=== PATIENT | male | born 1960 | race Caucasian/White ===

== ENCOUNTER 2021-12-26 01:10 | Outpatient (CLI) | payer MEDICARE, MEDICAID, SELFPAY | END 2021-12-26 01:11 | disposition home or self-care (01) | LOC: AMB 01-06 12:00 | PROVIDERS: PCP Family Medicine; Visit Provider Family Medicine | DX: M79.604 Pain in right leg (principal); M79.605 Pain in left leg | CPT/HCPCS: A0425; A0429 ==

== ENCOUNTER 2022-02-01 11:18 | Outpatient (CLI) | payer MEDICARE, MEDICAID, SELFPAY | END 2022-02-01 11:19 | disposition home or self-care (01) | LOC: AMB 02-03 16:38 | PROVIDERS: PCP Family Medicine; Visit Provider Family Medicine | DX: R22.41 Localized swelling, mass and lump, right lower limb (principal) | CPT/HCPCS: A0425; A0429 ==

== ENCOUNTER 2022-02-01 11:46 | Emergency (ER) | payer MEDICARE, MEDICAID, SELFPAY ==
[2022-02-01 11:52] VITALS: BP 131/50; PULSE 63; RESP 18; TEMP 35.7; O2SAT 98; BMI 63.6
[2022-02-01 12:00] VITALS: BP 138/69; PULSE 62; O2SAT 97
--- NOTE | 2022-02-01 12:29 | ED_ITS ---
HPI - General Adult General Chief complaint: Skin/Abscess/Foreign Body Stated complaint: Cellulitis Time Seen by Provider: 02/01/22 11:50 Source: patient Limitations: no limitations History of Present Illness HPI narrative: 61-year-old male coming in today concerned about the rash on his legs. He was told by the nursing staff at his assisted living that it could be infection. He states that he does have chronic leg swelling and he uses compression stockings regularly. He feels that his legs might be little bit more swollen than usual. He denies any systemic symptoms such as fevers, chills, nausea, vomiting, weakness, fatigue. He denies any joint pain. He denies changes in his appetite. Patient is already on chlorthalidone and torsemide. Related Data Allergies Allergy/AdvReac Type Severity Reaction Status Date / Time No Known Drug Allergies Allergy Verified 02/01/22 11:52 Review of Systems Status of ROS: Reports: 10 or more systems reviewed and unremarkable except as noted in History and below [facility] Social History Smoking Status: Never smoker Do you use any of these nicotine containing products: None Second hand tobacco smoke exposure: No How often do you have a drink containing alcohol: never How often do you have six or more drinks on one occasion: Never AUDIT-C Alcohol total score: 0 Non-prescribed substance use: denies use service: No Exam Narrative: Exam Narrative: Morbidly obese patient in no acute distress. Alert and oriented. Answers questions appropriately. Mood and affect are appropriate. No tangential or magical thinking noted. Patient speaks in full sentences without needing to catch his breath. HEENT: Normocephalic atraumatic. Pupils are equally round reactive to light. Extraocular muscles are intact. Conjunctivae are moist without any icterus noted. Moist mucous membranes. Cardiovascular: Heart is regular rate and rhythm S1 and S2 are present. Heart sounds are distant secondary to body habitus. Lungs: Clear to auscultation bilaterally no wheezes rhonchi or rales are appreciated. Patient takes deep breaths without any discomfort. Abdomen: Soft and nontender nondistended with normal bowel sounds. Cannot assess for organomegaly secondary to body habitus. Extremities: Bilateral lower extremities show 1+ pitting edema bilaterally with chronic venous stasis discoloration and thickening of the skin. Extremities are not hot. There is no erythema noted. I do not appreciate any evidence of infection today. Const: Vital Signs, click to edit/add: Vital Signs - 24 hr 02/01/22 11:52 Temperature 96.3 F L Pulse Rate [Apical ] 63 Respiratory Rate 18 Blood Pressure [Le ft Forearm] 131/50 L Pulse Oximetry 98 Oxygen Delivery Me thod Room Air Course Vital Signs Vital signs: Initial Vital Signs Temperature 96.3 F L 02/01/22 11:52 Temperature Source Temporal Artery Scan 02/01/22 11:52 Pulse Rate 63 02/01/22 11:52 Pulse Rhythm 02/01/22 11:52 Respiratory Rate 18 02/01/22 11:52 Blood Pressure 131/50 L 02/01/22 11:52 Blood Pressure Mean 77 02/01/22 11:52 Pulse Oximetry 98 02/01/22 11:52 Oxygen Delivery Method 02/01/22 11:52 Vital Signs Temperature 96.3 F L 02/01/22 11:52 Pulse Rate 63 02/01/22 11:52 Respiratory Rate 18 02/01/22 11:52 Blood Pressure 131/50 L 02/01/22 11:52 Pulse Oximetry 98 02/01/22 11:52 Oxygen Delivery Method 02/01/22 11:52 Temperature 96.3 F L 02/01/22 11:52 Pulse Rate 63 02/01/22 11:52 Respiratory Rate 18 02/01/22 11:52 Blood Pressure 131/50 L 02/01/22 11:52 Pulse Oximetry 98 02/01/22 11:52 Oxygen Delivery Method 02/01/22 11:52 Medical Decision Making [facility] Narrative Medical decision making narrative: 61-year-old male with chronic lower extremity edema presenting with chronic venous stasis discoloration and thickening of the skin. No evidence of infection was noted today. I do recommend he follow-up with his primary care provider to discuss if he needs to have any changes to his medications may. Did recommend he elevate his legs for the remainder of the day if possible an always continue to wear his compression stockings. Patient was agreeable and had no other questions. Medical Records Medical records reviewed: Yes I reviewed the patient's medical records Discharge Plan Discharge Clinical Impression: Chronic venous stasis, Chronic venous stasis dermatitis Patient Disposition: Home, Self-Care Condition: Stable Additional Instructions: Elevate legs as much as possible. Wear compression stockings when you can. Follow-up with your primary care provider to discuss any medication changes. Follow Up/Referrals: Andressa Pendleton, [Primary Care Provider] - Stand Alone Forms: [employer] Info Instructions
[2022-02-01 12:30] VITALS: BP 126/69; PULSE 60; RESP 20; O2SAT 97
[2022-02-01 13:00] VITALS: BP 137/67; PULSE 58; RESP 18; O2SAT 97
--- NOTE | 2022-02-01 13:32 | ED.NURSE ---
awaiting ems transport back to the [facility]. this has been requested.
[2022-02-01 14:50] VITALS: BP 130/63; PULSE 60; RESP 20; O2SAT 98
--- NOTE | 2022-02-01 15:46 | ED.NURSE ---
was able to stand and pivot onto chair. asking for food. awaiting ems to return him back to his home at the [facility].
--- NOTE | 2022-02-01 15:47 | ED.NURSE ---
ate cheeseburger and fries with diet sprite. denies pain. has very good appetite. did void small amt. sitting in w/c.
== END 2022-02-01 14:50 | disposition home or self-care (01) ==
LOC: ED 12:51
PROVIDERS: Emergency Provider Family Medicine; PCP Family Medicine
DX: I87.2 Venous insufficiency (chronic) (peripheral) (principal)
CPT/HCPCS: 99283

== ENCOUNTER 2022-03-07 13:04 | Outpatient (CLI) | payer MEDICARE, MEDICAID, SELFPAY | END 2022-03-07 13:05 | disposition home or self-care (01) | PROVIDERS: Visit Provider Emergency Medicine Emergency Medical Services | DX: R53.81 Other malaise (principal) | CPT/HCPCS: A0425; A0427 ==

== ENCOUNTER 2022-03-07 13:39 | Emergency (ER) | payer MEDICARE, MEDICAID, SELFPAY ==
[2022-03-07] VITALS (14 sets, daily range): BP systolic 101–133; BP diastolic 42–68; PULSE 68–80; RESP 20; TEMP 36.7; O2SAT 95–98; BMI 57.4
--- NOTE | 2022-03-07 14:06 | CRLHL7_ITS ---
For Patients: As a result of the Cures Act, medical imaging exams and procedure reports are released immediately into your electronic medical record. You may view this report before your referring provider. If you have questions, please contact your health care provider. Indication: Shortness of breath Technique: Portable chest Comparison: Chest x-ray 07/25/2020 Findings: Enlarged cardiac silhouette. Low lung volumes. No effusion or pneumothorax. Dictated by Tanvi Dougherty MD @ 03/07/2022 2:53:40 PM (Electronically Signed)
--- NOTE | 2022-03-07 14:25 | ED.GENADULT ---
HPI - General Adult General Chief complaint: Unspecified Complaint, Adult Stated complaint: Illness Time Seen by Provider: 03/07/22 14:00 Source: patient Limitations: no limitations History of Present Illness HPI narrative: Patient is a 61-year-old male coming in today because of not feeling well since waking up this morning. He complains of a headache and body aches. He had chills. He denies cough, nausea or vomiting. He denies any changes in his appetite. He denies any diarrhea. No pain with urination. Denies any increased urinary frequency or urgency. He states that he has an ulceration on his abdomen and 1 on his scrotum that have been there for several weeks, he does not think that they are changing. He does not feel dizzy or lightheaded. States that he had a temperature of 100.3? at home, upon arrival here, without intervention, temperature is normal. Patient's past medical history is significant for diabetes, diabetic neuropathy, developmental disorder, morbid obesity, chronic kidney disease stage 3, sensorineural hearing loss, hyperlipidemia, depression, obstructive sleep apnea, hypertension, gout, history of osteomyelitis. Related Data Home Medications Medication Instructions Recorded Confirmed amlodipine 10 mg tablet 10 mg PO DAILY 03/07/22 03/07/22 apixaban 5 mg tablet (Eliquis) 5 mg PO BID 03/07/22 03/07/22 aripiprazole 15 mg tablet 7.5 mg PO DAILY 03/07/22 03/07/22 aspirin 81 mg tablet,delayed 81 mg PO DAILY 03/07/22 03/07/22 release carbamazepine 200 mg tablet 200 mg PO BID 03/07/22 03/07/22 chlorthalidone 25 mg tablet 25 mg PO DAILY 03/07/22 03/07/22 ezetimibe 10 mg tablet 10 mg PO DAILY 03/07/22 03/07/22 hydralazine 50 mg tablet 50 mg PO QID 03/07/22 03/07/22 insulin aspart U-100 100 unit/mL 42 unit subcut TIDWM 03/07/22 03/07/22 (3 mL) subcutaneous pen (Novolog Flexpen U-100 Insulin aspart) insulin aspart U-100 100 unit/mL 10 unit subcut QPM 03/07/22 03/07/22 subcutaneous solution (Novolog U-100 Insulin aspart) insulin detemir U-100 100 unit/mL 80 unit subcut BID 03/07/22 03/07/22 (3 mL) subcutaneous pen (Levemir FlexTouch U-100 Insulin) isosorbide mononitrate 30 mg 30 mg PO DAILY 03/07/22 03/07/22 tablet,extended release 24 hr lisinopril 40 mg tablet 40 mg PO DAILY 03/07/22 03/07/22 metoprolol succinate 200 mg 200 mg PO DAILY 03/07/22 03/07/22 tablet,extended release 24 hr pantoprazole 40 mg tablet,delayed 40 mg PO DAILY 03/07/22 03/07/22 release polyethylene glycol 3350 17 17 g PO DAILY 03/07/22 03/07/22 gram/dose oral powder pravastatin 80 mg tablet 80 mg PO HS 03/07/22 03/07/22 pregabalin 100 mg capsule 100 mg PO QAM 03/07/22 03/07/22 pregabalin 150 mg capsule 150 mg PO HS 03/07/22 03/07/22 torsemide 20 mg tablet 20 mg PO DAILY 03/07/22 03/07/22 venlafaxine 75 mg capsule,extended 225 mg PO DAILY 03/07/22 03/07/22 release 24 hr Previous Rx's Medication Instructions Recorded cephalexin 500 mg capsule 500 mg PO TID 7 days #21 caps 03/07/22 Allergies Allergy/AdvReac Type Severity Reaction Status Date / Time No Known Drug Allergies Allergy Verified 02/01/22 11:52 Review of Systems Status of ROS: Reports: 10 or more systems reviewed and unremarkable except as noted in History and below PFSH PFS Social History Smoking Status: Never smoker Do you use any of these nicotine containing products: None Second hand tobacco smoke exposure: No How often do you have a drink containing alcohol: never How often do you have six or more drinks on one occasion: Never AUDIT-C Alcohol total score: 0 Non-prescribed substance use: denies use service: No Exam Narrative: Exam Narrative: Morbidly obese patient in no acute distress. Alert and oriented. Answers questions appropriately. Mood and affect are appropriate. Thoughts are goal oriented and rational. No tangential or magical thinking noted. Patient speaks in full sentences without needing to catch his breath. Speech is not slurred or pressured. HEENT: Normocephalic atraumatic. Pupils are equally round reactive to light. Extraocular muscles are intact. Conjunctivae are moist without any icterus noted. Moist mucous membranes. Posterior pharynx is normal. Neck is soft without any lymphadenopathy or thyromegaly. No masses are appreciated. Cardiovascular: Heart sounds are distant secondary to body habitus. Lungs: Clear to auscultation bilaterally no wheezes rhonchi or rales are appreciated. Patient takes deep breaths without any discomfort. Abdomen: Soft and nontender nondistended with normal bowel sounds. No guarding or rebound. Cannot assess for organomegaly secondary to body habitus. Patient has chronic induration of the lower abdominal skin. He does have an area of erythema on the right abdomen, skin is indurated there as well, and is warm to touch. He has a 1 cm ulceration of the anterior abdominal wall which does not appear to be infected. Extremities: He has compression stockings on both lower extremity. The : Posterior scrotum he has about a 1 cm ulceration of the scrotal skin, does not appear to be infected. Const: Vital Signs, click to edit/add: Vital Signs - 24 hr 03/07/22 13:46 03/07/22 14:43 03/07/22 14:45 Temperature 98.1 F Pulse Rate Pulse Rate [Left P ulse Oximeter] 80 71 Respiratory Rate 20 20 Blood Pressure Blood Pressure [Le ft Forearm] 101/53 L Blood Pressure [Ri ght Upper Arm] 106/44 L Pulse Oximetry 95 96 96 Oxygen Delivery Me thod Room Air Room Air 03/07/22 14:57 03/07/22 15:00 03/07/22 15:03 Temperature Pulse Rate 71 71 71 Pulse Rate [Left P ulse Oximeter] Respiratory Rate Blood Pressure 106/42 L Blood Pressure [Le ft Forearm] Blood Pressure [Ri ght Upper Arm] Pulse Oximetry 95 95 96 Oxygen Delivery Me thod 03/07/22 15:30 03/07/22 15:33 03/07/22 16:00 Temperature Pulse Rate 71 69 70 Pulse Rate [Left P ulse Oximeter] Respiratory Rate Blood Pressure 125/68 Blood Pressure [Le ft Forearm] Blood Pressure [Ri ght Upper Arm] Pulse Oximetry 97 98 96 Oxygen Delivery Me thod 03/07/22 16:02 03/07/22 16:30 Temperature Pulse Rate 68 74 Pulse Rate [Left P ulse Oximeter] Respiratory Rate Blood Pressure 133/61 Blood Pressure [Le ft Forearm] Blood Pressure [Ri ght Upper Arm] Pulse Oximetry 97 96 Oxygen Delivery Me thod Course Course Hospital Course: IV was started and patient received a L of normal saline. Labs were drawn and were fairly unremarkable, he did have a slightly elevated CRP and sed rate. Chest x-ray was unremarkable. COVID and influenza were negative. Urinalysis without evidence of infection. Blood cultures were drawn, urine culture pending. He remained afebrile hemodynamically stable while he was here. I do believe that he is likely developing a cellulitis of the anterior abdominal wall, therefore, did give him a dose of IV Rocephin while he was here. Vital Signs Vital signs: Initial Vital Signs Temperature 98.1 F 03/07/22 13:46 Temperature Source Temporal Artery Scan 03/07/22 13:46 Pulse Rate 80 03/07/22 13:46 Pulse Rhythm 03/07/22 13:46 Pulse Strength 3+ Normal 03/07/22 13:46 Respiratory Rate 20 03/07/22 13:46 Blood Pressure 106/44 L 03/07/22 13:46 Blood Pressure Mean 64 03/07/22 13:46 Blood Pressure Position Sitting 03/07/22 13:46 Pulse Oximetry 95 03/07/22 13:46 Oxygen Delivery Method 03/07/22 13:46 Vital Signs Temperature 98.1 F 03/07/22 13:46 Pulse Rate 80 03/07/22 13:46 Respiratory Rate 20 03/07/22 13:46 Blood Pressure 106/44 L 03/07/22 13:46 Pulse Oximetry 95 03/07/22 13:46 Oxygen Delivery Method 03/07/22 13:46 Temperature 98.1 F 03/07/22 13:46 Pulse Rate 74 03/07/22 16:30 Respiratory Rate 20 03/07/22 14:45 Blood Pressure 133/61 03/07/22 16:02 Pulse Oximetry 96 03/07/22 16:30 Oxygen Delivery Method 03/07/22 14:45 Medical Decision Making MDM Narrative Medical decision making narrative: 61-year-old male with cellulitis of the abdominal wall. Patient will be sent home with Keflex 3 times a day for a week. Follow-up with primary care this coming week. Return to the ER for worsening symptoms. Medical Records Medical records reviewed: Yes I reviewed the patient's medical records Lab Data Lab results reviewed: Yes I reviewed the patient's lab results Labs: Lab Results 03/07/22 03/07/22 03/07/22 Range/Units 14:07 14:26 14:26 WBC 5.42 (4.50-11.00) K/uL RBC 3.84 L (4.30-5.90) m/uL Hgb 11.4 L (13.5-17.5) gm/dL Hct 34.0 L (37.0-53.0) % MCV 89 (80-100) fL MCH 30 (26-34) pg MCHC 34 (32-36) gm/dL RDW Coeff of Kaylen 13.7 (11.5-15.5) % Plt Count 152 (140-440) K/uL Neut % (Auto) 71.1 (42.0-72.0) % Lymph % (Auto) 19.2 L (20-44) % Robertson % (Auto) 6.5 (0.0-11.0) % Eos % (Auto) 2.2 (0.0-7.0) % Baso % (Auto) 0.4 (0.0-3.0) % Neut # (Auto) 3.86 (1.7-7.0) K/uL Lymph # (Auto) 1.00 (0.90-2.90) K/uL Robertson # (Auto) 0.40 (0.00-0.90) K/UL Eos # (Auto) 0.12 (0.00-0.50) K/uL Baso # (Auto) 0.02 (0.00-0.30) K/uL Abs Immat Gran (auto) 0.03 (0.00-0.30) K/uL ESR (2-15) mm/hr Sodium 138 (135-149) mmol/L Potassium 4.2 (3.6-5.1) mmol/L Chloride 102 (96-114) mmol/L Carbon Dioxide 29 (20-32) mmol/L BUN 44 H (7-30) mg/dL Creatinine 1.3 (0.5-1.5) mg/dL Estimated Creat Clear 51.25 Estimated GFR 62 ml/min Glucose 166 H (60-115) mg/dL Lactate (0.5-1.9) mmol/L Calcium 9.0 (8.4-10.6) mg/dL Total Bilirubin (0.1-1.5) mg/dL Direct Bilirubin (0.0-0.5) mg/dL AST (12-35) U/L ALT (4-50) U/L Alkaline Phosphatase (40-150) U/L Troponin I (0.01-0.04) ng/mL C-Reactive Protein 3.1 H (0.5-1.0) mg/dL Total Protein (6.0-8.3) g/dL Albumin (3.3-5.0) g/dL Urine Color (Yellow) Urine Appearance (Clear) Urine pH (5.0-8.5) Ur Specific [place] (1.000-1.030) Urine Protein (Negative) Urine Glucose (UA) (Negative) Urine Ketones (Negative) Urine Blood (Negative) Urine Nitrite (Negative) Urine Bilirubin (Negative) Urine Urobilinogen (0.2-1.0) Ur Leukocyte Esterase (Negative) Urine RBC (0-2) Urine WBC (0-5) Ur Squamous Epith Cells (None-Few) Urine Bacteria (None) SARS-CoV-2 (PCR) Negative SARS-CoV-2 (Negative) Influenza Type A (PCR) Negative PCR FLU A (Negative) Influenza Type B (PCR) Negative PCR FLU B (Negative) 03/07/22 03/07/22 03/07/22 Range/Units 14:26 14:26 14:26 WBC (4.50-11.00) K/uL RBC (4.30-5.90) m/uL Hgb (13.5-17.5) gm/dL Hct (37.0-53.0) % MCV (80-100) fL MCH (26-34) pg MCHC (32-36) gm/dL RDW Coeff of Kaylen (11.5-15.5) % Plt Count (140-440) K/uL Neut % (Auto) (42.0-72.0) % Lymph % (Auto) (20-44) % Robertson % (Auto) (0.0-11.0) % Eos % (Auto) (0.0-7.0) % Baso % (Auto) (0.0-3.0) % Neut # (Auto) (1.7-7.0) K/uL Lymph # (Auto) (0.90-2.90) K/uL Robertson # (Auto) (0.00-0.90) K/UL Eos # (Auto) (0.00-0.50) K/uL Baso # (Auto) (0.00-0.30) K/uL Abs Immat Gran (auto) (0.00-0.30) K/uL ESR 53 H (2-15) mm/hr Sodium (135-149) mmol/L Potassium (3.6-5.1) mmol/L Chloride (96-114) mmol/L Carbon Dioxide (20-32) mmol/L BUN (7-30) mg/dL Creatinine (0.5-1.5) mg/dL Estimated Creat Clear Estimated GFR ml/min Glucose (60-115) mg/dL Lactate 1.7 (0.5-1.9) mmol/L Calcium (8.4-10.6) mg/dL Total Bilirubin 0.2 (0.1-1.5) mg/dL Direct Bilirubin 0.0 (0.0-0.5) mg/dL AST 27 (12-35) U/L ALT 29 (4-50) U/L Alkaline Phosphatase 111 (40-150) U/L Troponin I < 0.01 L (0.01-0.04) ng/mL C-Reactive Protein (0.5-1.0) mg/dL Total Protein 6.9 (6.0-8.3) g/dL Albumin 3.9 (3.3-5.0) g/dL Urine Color (Yellow) Urine Appearance (Clear) Urine pH (5.0-8.5) Ur Specific [place] (1.000-1.030) Urine Protein (Negative) Urine Glucose (UA) (Negative) Urine Ketones (Negative) Urine Blood (Negative) Urine Nitrite (Negative) Urine Bilirubin (Negative) Urine Urobilinogen (0.2-1.0) Ur Leukocyte Esterase (Negative) Urine RBC (0-2) Urine WBC (0-5) Ur Squamous Epith Cells (None-Few) Urine Bacteria (None) SARS-CoV-2 (PCR) (Negative) Influenza Type A (PCR) (Negative) Influenza Type B (PCR) (Negative) 03/07/22 Range/Units 16:31 WBC (4.50-11.00) K/uL RBC (4.30-5.90) m/uL Hgb (13.5-17.5) gm/dL Hct (37.0-53.0) % MCV (80-100) fL MCH (26-34) pg MCHC (32-36) gm/dL RDW Coeff of Kaylen (11.5-15.5) % Plt Count (140-440) K/uL Neut % (Auto) (42.0-72.0) % Lymph % (Auto) (20-44) % Robertson % (Auto) (0.0-11.0) % Eos % (Auto) (0.0-7.0) % Baso % (Auto) (0.0-3.0) % Neut # (Auto) (1.7-7.0) K/uL Lymph # (Auto) (0.90-2.90) K/uL Robertson # (Auto) (0.00-0.90) K/UL Eos # (Auto) (0.00-0.50) K/uL Baso # (Auto) (0.00-0.30) K/uL Abs Immat Gran (auto) (0.00-0.30) K/uL ESR (2-15) mm/hr Sodium (135-149) mmol/L Potassium (3.6-5.1) mmol/L Chloride (96-114) mmol/L Carbon Dioxide (20-32) mmol/L BUN (7-30) mg/dL Creatinine (0.5-1.5) mg/dL Estimated Creat Clear Estimated GFR ml/min Glucose (60-115) mg/dL Lactate (0.5-1.9) mmol/L Calcium (8.4-10.6) mg/dL Total Bilirubin (0.1-1.5) mg/dL Direct Bilirubin (0.0-0.5) mg/dL AST (12-35) U/L ALT (4-50) U/L Alkaline Phosphatase (40-150) U/L Troponin I (0.01-0.04) ng/mL C-Reactive Protein (0.5-1.0) mg/dL Total Protein (6.0-8.3) g/dL Albumin (3.3-5.0) g/dL Urine Color Yellow (Yellow) Urine Appearance Clear (Clear) Urine pH 5.5 (5.0-8.5) Ur Specific [place] 1.015 (1.000-1.030) Urine Protein Negative (Negative) Urine Glucose (UA) Negative (Negative) Urine Ketones Negative (Negative) Urine Blood Negative (Negative) Urine Nitrite Negative (Negative) Urine Bilirubin Negative (Negative) Urine Urobilinogen 0.2 (0.2-1.0) Ur Leukocyte Esterase Negative (Negative) Urine RBC 0-2 (0-2) Urine WBC 0-2 (0-5) Ur Squamous Epith Cells Few (None-Few) Urine Bacteria None (None) SARS-CoV-2 (PCR) (Negative) Influenza Type A (PCR) (Negative) Influenza Type B (PCR) (Negative) Imaging Data Chest x-ray: Attestation: I have reviewed the pertinent imaging results. Radiologist's impression: Portable chest Comparison: Chest x-ray 07/25/2020 Findings: Enlarged cardiac silhouette. Low lung volumes. No effusion or pneumothorax. ECG Data Attestation: I personally reviewed and interpreted this ECG as follows: (Normal sinus rhythm, pulse 71) Discharge Plan Discharge Clinical Impression: Cellulitis Patient Disposition: Home, Self-Care Condition: Stable Additional Instructions: Start antibiotics as prescribed, can take 1st dose tomorrow. Recommend you follow-up with your primary care provider in the next 3-4 days. Return to the ER if your symptoms get worse instead of better. Prescriptions: New cephalexin 500 mg capsule 500 mg PO TID 7 Days Qty: 21 0RF No Action amlodipine 10 mg tablet 10 mg PO DAILY aripiprazole 15 mg tablet 7.5 mg PO DAILY Eliquis 5 mg tablet 5 mg PO BID aspirin 81 mg tablet,delayed release (DR/EC) 81 mg PO DAILY venlafaxine 75 mg capsule,extended release 24hr 225 mg PO DAILY torsemide 20 mg tablet 20 mg PO DAILY metoprolol succinate 200 mg tablet extended release 24 hr 200 mg PO DAILY isosorbide mononitrate 30 mg tablet extended release 24 hr 30 mg PO DAILY chlorthalidone 25 mg tablet 25 mg PO DAILY carbamazepine 200 mg tablet 200 mg PO BID pravastatin 80 mg tablet 80 mg PO HS pantoprazole 40 mg tablet,delayed release (DR/EC) 40 mg PO DAILY hydralazine 50 mg tablet 50 mg PO QID Label Comments: 08,12,16,20 lisinopril 40 mg tablet 40 mg PO DAILY ezetimibe 10 mg tablet 10 mg PO DAILY pregabalin 100 mg capsule 100 mg PO QAM pregabalin 150 mg capsule 150 mg PO HS Levemir FlexTouch U-100 Insuln 100 unit/mL (3 mL) insulin pen 80 unit SUBCUT BID insulin aspart U-100 [Novolog Flexpen U-100 Insulin] 100 unit/mL (3 mL) insulin pen 42 unit SUBCUT TIDWM polyethylene glycol 3350 17 gram/dose powder 17 g PO DAILY insulin aspart U-100 [Novolog U-100 Insulin aspart] 100 unit/mL solution 10 unit subcut QPM Follow Up/Referrals: Andressa Pendleton DO [Staff Physician] - Stand Alone Forms: [facility] Info Instructions
[2022-03-07] MEDS: 0.9 % SODIUM CHLORIDE 1000 ml 1,000 ML IV (14:37)
[2022-03-07 14:38] LABS: Lactate* 1.7 mmol/L (0.5-1.9)
[2022-03-07 14:49] LABS: Basophils Absolute Auto 0.02 K/uL (0.00-0.30); Basophils Percent Auto 0.4 % (0.0-3.0); Eosinophils Absolute Auto 0.12 K/uL (0.00-0.50); Eosinophils Percent Auto 2.2 % (0.0-7.0); Hemoglobin* 11.4 gm/dL (13.5-17.5); Immature Granulocytes Abs Auto 0.03 K/uL (0.00-0.30); Lymphocytes Percent Auto 19.2 % (20-44); Mean Corpuscular HGB Conc 34 gm/dL (32-36); Mean Corpuscular Hemoglobin 30 pg (26-34); Mean Corpuscular Volume 89 fL (80-100); Monocytes Percent Auto 6.5 % (0.0-11.0); Neutrophils Absolute Auto 3.86 K/uL (1.7-7.0); Neutrophils Percent Auto 71.1 % (42.0-72.0); Platelet Count* 152 K/uL (140-440); RDW Coefficient of Variation % 13.7 % (11.5-15.5); Red Blood Count 3.84 m/uL (4.30-5.90); White Blood Count* 5.42 K/uL (4.50-11.00)
[2022-03-07 14:51] LABS: Slide Review Reflex No
[2022-03-07 14:54] LABS: Chloride* 102 mmol/L (96-114); Potassium* 4.2 mmol/L (3.6-5.1); Sodium* 138 mmol/L (135-149)
[2022-03-07 14:55] LABS: Albumin* 3.9 g/dL (3.3-5.0)
[2022-03-07 14:57] LABS: Blood Urea Nitrogen* 44 mg/dL (7-30); Carbon Dioxide* 29 mmol/L (20-32); Creatinine* 1.3 mg/dL (0.5-1.5); Est. Creatinine Clearance* 51.25; Estimated Glomerular Filt Rate 62 ml/min
[2022-03-07 14:58] LABS: Alanine Aminotransferase* 29 U/L (4-50); Alkaline Phosphatase* 111 U/L (40-150); Aspartate Amino Transferase* 27 U/L (12-35); Bilirubin Total* 0.2 mg/dL (0.1-1.5); Glucose* 166 mg/dL (60-115); Total Protein* 6.9 g/dL (6.0-8.3)
[2022-03-07 15:00] LABS: C Reactive Protein* 3.1 mg/dL (0.5-1.0)
[2022-03-07 15:11] LABS: Troponin I* < 0.01 ng/mL (0.01-0.04)
[2022-03-07 15:21] LABS: PCR FLU A Negative PCR FLU A (Negative); PCR FLU B Negative PCR FLU B (Negative); SARS PCR* Negative SARS-CoV-2 (Negative)
[2022-03-07 15:27] LABS: Erythrocyte SedimentationRate* 53 mm/hr (2-15)
[2022-03-07] MEDS: cefTRIAXone 1 GM in 0.9 % SODIUM CHLORIDE Mini-bag 100 ML IVPB (16:28)
[2022-03-07 16:37] LABS: Appearance Urine Clear (Clear); Bilirubin Urine Negative (Negative); Blood Urine Negative (Negative); Color Urine Yellow (Yellow); Glucose Urine Negative (Negative); Ketones Urine Negative (Negative); Leukocyte Esterase Urine Negative (Negative); Nitrite Urine Negative (Negative); Protein Urine Negative (Negative); Specific Gravity Urine 1.015 (1.000-1.030); Urobilinogen Urine 0.2 (0.2-1.0); pH Urine 5.5 (5.0-8.5)
[2022-03-07 16:48] LABS: RBC Urine 0-2 (0-2); WBC Urine 0-2 (0-5)
[2022-03-07 16:49] LABS: Squamous Epithelial Cell Urine Few (None-Few)
== END 2022-03-07 19:07 | disposition home or self-care (01) ==
PROVIDERS: Emergency Provider Family Medicine
DX: L03.311 Cellulitis of abdominal wall (principal); R51.9 Headache, unspecified
CPT/HCPCS: 36415; 71045; 80048; 80076; 81001; 83605; 84484; 85025; 85651; 86140; 87040; 87086; 87631; 93005; 94761; 96361; 96365; 99284; J0696; J7030

== ENCOUNTER 2022-03-07 19:06 | Outpatient (CLI) | payer MEDICARE, MEDICAID, SELFPAY | END 2022-03-07 19:07 | disposition home or self-care (01) | LOC: AMB 04-18 22:13 | PROVIDERS: Visit Provider Family Medicine | DX: L03.311 Cellulitis of abdominal wall (principal) | CPT/HCPCS: A0425; A0428 ==

== ENCOUNTER 2022-05-18 18:13 | Outpatient (CLI) | payer MEDICARE, MEDICAID, SELFPAY | END 2022-05-18 18:14 | disposition home or self-care (01) | PROVIDERS: Visit Provider Emergency Medicine Emergency Medical Services | DX: R21 Rash and other nonspecific skin eruption (principal); R17 Unspecified jaundice | CPT/HCPCS: A0425; A0428; A0429 ==

== ENCOUNTER 2022-05-18 18:52 | Emergency (ER) | payer MEDICARE, MEDICAID, SELFPAY ==
[2022-05-18 18:57] VITALS: BP 104/62; PULSE 65; RESP 20; TEMP 37.1; O2SAT 98
--- NOTE | 2022-05-18 19:11 | ED.GENADULT ---
HPI - General Adult General Chief complaint: Skin/Abscess/Foreign Body Stated complaint: Skin Problem Time Seen by Provider: 05/18/22 19:04 Source: patient and EMS Mode of arrival: EMS Limitations: no limitations History of Present Illness HPI narrative: Patient is a 61-year-old sent in by ambulance from the care facility reportedly to be evaluated for possible liver disease. He tells me that there was a spot on his back and 2 on his chest that made the nurse there worried that he might have liver failure. He tells me the spot on his back has been there for several days and is somewhat sore. He does not really know what his on his chest that they were worried about. Otherwise he does not have any complaints. He has not been feeling unwell. Denies fevers, nausea, vomiting. No difficulty breathing. He denies any history of liver disease. He has not noted any changes in his skin himself. He does have a history of a boil on his back that had to be drained previously. I do not see a prior noted history of MRSA. Related Data Home Medications Medication Instructions Recorded Confirmed amlodipine 10 mg tablet 10 mg PO DAILY 03/07/22 03/07/22 apixaban 5 mg tablet (Eliquis) 5 mg PO BID 03/07/22 03/07/22 aripiprazole 15 mg tablet 7.5 mg PO DAILY 03/07/22 03/07/22 aspirin 81 mg tablet,delayed 81 mg PO DAILY 03/07/22 03/07/22 release carbamazepine 200 mg tablet 200 mg PO BID 03/07/22 03/07/22 chlorthalidone 25 mg tablet 25 mg PO DAILY 03/07/22 03/07/22 ezetimibe 10 mg tablet 10 mg PO DAILY 03/07/22 03/07/22 hydralazine 50 mg tablet 50 mg PO QID 03/07/22 03/07/22 insulin aspart U-100 100 unit/mL 42 unit subcut TIDWM 03/07/22 03/07/22 (3 mL) subcutaneous pen (Novolog Flexpen U-100 Insulin aspart) insulin aspart U-100 100 unit/mL 10 unit subcut QPM 03/07/22 03/07/22 subcutaneous solution (Novolog U-100 Insulin aspart) insulin detemir U-100 100 unit/mL 80 unit subcut BID 03/07/22 03/07/22 (3 mL) subcutaneous pen (Levemir FlexTouch U-100 Insulin) isosorbide mononitrate 30 mg 30 mg PO DAILY 03/07/22 03/07/22 tablet,extended release 24 hr lisinopril 40 mg tablet 40 mg PO DAILY 03/07/22 03/07/22 metoprolol succinate 200 mg 200 mg PO DAILY 03/07/22 03/07/22 tablet,extended release 24 hr pantoprazole 40 mg tablet,delayed 40 mg PO DAILY 03/07/22 03/07/22 release polyethylene glycol 3350 17 17 g PO DAILY 03/07/22 03/07/22 gram/dose oral powder pravastatin 80 mg tablet 80 mg PO HS 03/07/22 03/07/22 pregabalin 100 mg capsule 100 mg PO QAM 03/07/22 03/07/22 pregabalin 150 mg capsule 150 mg PO HS 03/07/22 03/07/22 torsemide 20 mg tablet 20 mg PO DAILY 03/07/22 03/07/22 venlafaxine 75 mg capsule,extended 225 mg PO DAILY 03/07/22 03/07/22 release 24 hr Previous Rx's Medication Instructions Recorded cephalexin 500 mg capsule 500 mg PO TID 7 days #21 caps 03/07/22 cephalexin 500 mg capsule 500 mg PO TID 7 days #21 caps 03/07/22 Allergies Allergy/AdvReac Type Severity Reaction Status Date / Time lisinopril AdvReac Verified 05/18/22 18:58 metformin AdvReac Verified 05/18/22 18:58 Review of Systems Status of ROS: Reports: 10 or more systems reviewed and unremarkable except as noted in History and below [facility] Medical History CKD (chronic kidney disease) Gout Major depressive disorder Obesity Type 2 diabetes mellitus Social History Smoking Status: Never smoker Do you use any of these nicotine containing products: None Second hand tobacco smoke exposure: No How often do you have a drink containing alcohol: never How often do you have six or more drinks on one occasion: Never AUDIT-C Alcohol total score: 0 Non-prescribed substance use: denies use service: No Exam Narrative: Exam Narrative: Vital signs as noted above. In general, an alert, nontoxic male. Significantly overweight. Breathing easily. Head: Normocephalic, atraumatic. Eyes: Pupils are equal reactive. Extraocular movements are full. No scleral icterus. ENT: Mucous membranes are moist. Throat is normal. Neck: Supple without lymphadenopathy. Heart: Regular rate and rhythm. No murmur or rub. Lungs: Clear bilaterally. No increased work of breathing, crackles or wheezes. Abdomen: Soft and nontender. No organomegaly. Extremities: Well perfused. No edema. No calf tenderness. Pulses intact. Neurologic: Patient is alert and oriented to person and place. Speech is fluent. Face is symmetric. Moves all extremities equally. Affect: Normal. Skin: Warm and dry. Well perfused. No jaundice. On his back, he has an approximately 6 x 6 area of redness with some warm sent tenderness. I do not feel any fluctuance at this time. There is some [place] induration noted however. On his chest, on 2 areas just underneath the clavicle bilaterally, there is some yellowish discoloration to his skin, almost as if he has resolving bruises in that area. He denies receiving any injections in that area that he can recall, he does not recall any trauma to that area. These are localized and symmetric. Otherwise there is no further evidence of jaundice to the skin. Const: Vital Signs, click to edit/add: Vital Signs - 24 hr 05/18/22 18:57 Temperature 98.7 F Pulse Rate [Left P ulse Oximeter] 65 Respiratory Rate 20 Blood Pressure [Ri ght Upper Arm] 104/62 Pulse Oximetry 98 Documenting provider has reviewed patient's vital signs: yes Course Course Hospital Course: Because he was sent in to rule out liver failure, I will do LFTs though clinically I do not see evidence of scleral icterus nor jaundice. I do think he is developing an area of cellulitis on his back. At this time I do not think there is an organized abscess that can be drained. We will go ahead and start him on antibiotics, but discussed with him that there is still the potential that this may worsen and require incision and drainage. This will need to be watched carefully to make sure it is not worsening. Given that it is on an area of the body that he cannot see this will fall to the staff at his care facility. Labs are reassuring. White blood cell count is normal, LFTs show a bilirubin of 0.3. CRP is minimally elevated at 1.9. I am going to start him on cephalexin at this time. Have advised him that the area on his back should be closely watched and if worsening should be re-evaluated. He should also be seen again for any signs of systemic illness such as fevers, vomiting, weakness, chills etcetera. Vital Signs Vital signs: Initial Vital Signs Temperature 98.7 F 05/18/22 18:57 Temperature Source Temporal Artery Scan 05/18/22 18:57 Pulse Rate 65 05/18/22 18:57 Respiratory Rate 20 05/18/22 18:57 Blood Pressure 104/62 05/18/22 18:57 Blood Pressure Mean 76 05/18/22 18:57 Blood Pressure Position Supine 05/18/22 18:57 Pulse Oximetry 98 05/18/22 18:57 Vital Signs Temperature 98.7 F 05/18/22 18:57 Pulse Rate 65 05/18/22 18:57 Respiratory Rate 20 05/18/22 18:57 Blood Pressure 104/62 05/18/22 18:57 Pulse Oximetry 98 05/18/22 18:57 Temperature 98.7 F 05/18/22 18:57 Pulse Rate 65 05/18/22 18:57 Respiratory Rate 20 05/18/22 18:57 Blood Pressure 104/62 05/18/22 18:57 Pulse Oximetry 98 05/18/22 18:57 Medical Decision Making Lab Data Labs: Lab Results 05/18/22 05/18/22 05/18/22 Range/Units 19:28 19:28 19:28 WBC 4.79 (4.50-11.00) K/uL RBC 3.88 L (4.30-5.90) m/uL Hgb 11.4 L (13.5-17.5) gm/dL Hct 34.5 L (37.0-53.0) % MCV 89 (80-100) fL MCH 29 (26-34) pg MCHC 33 (32-36) gm/dL RDW Coeff of Kaylen 13.9 (11.5-15.5) % Plt Count 168 (140-440) K/uL Neut % (Auto) 42.2 (42.0-72.0) % Lymph % (Auto) 45.1 H (20-44) % [place] % (Auto) 7.7 (0.0-11.0) % Eos % (Auto) 4.4 (0.0-7.0) % Baso % (Auto) 0.4 (0.0-3.0) % Neut # (Auto) 2.02 (1.7-7.0) K/uL Lymph # (Auto) 2.20 (0.90-2.90) K/uL [place] # (Auto) 0.40 (0.00-0.90) K/UL Eos # (Auto) 0.21 (0.00-0.50) K/uL Baso # (Auto) 0.02 (0.00-0.30) K/uL Total Bilirubin 0.3 (0.1-1.5) mg/dL Direct Bilirubin 0.3 (0.0-0.5) mg/dL AST 25 (12-35) U/L ALT 31 (4-50) U/L Alkaline Phosphatase 110 (40-150) U/L C-Reactive Protein 1.9 H (0.5-1.0) mg/dL Total Protein 7.0 (6.0-8.3) g/dL Albumin 3.9 (3.3-5.0) g/dL Discharge Plan Discharge Clinical Impression: Cellulitis Patient Disposition: Xfer Other Condition: Stable Instructions: Cellulitis (ED) Additional Instructions: Antibiotic as prescribed. The area on your back right now does not have anything that needs to be drained, however this could develop into an abscess. This is an area that you cannot easily keep an eye on, so you will need staff to watch this closely for you. If it is becoming more swollen, tender, or boggy, you should be seen for re-evaluation. Your labs tonight look normal. You do not have any evidence of liver failure. You have faint yellowish discoloration on 2 areas of your chest which are symmetric. This looks to me like perhaps resolving areas of bruising, though I do not know why he would have bruising that area. Nonetheless, the discoloration has nothing to do with your liver. Prescriptions: No Action amlodipine 10 mg tablet 10 mg PO DAILY aripiprazole 15 mg tablet 7.5 mg PO DAILY Eliquis 5 mg tablet 5 mg PO BID aspirin 81 mg tablet,delayed release (DR/EC) 81 mg PO DAILY venlafaxine 75 mg capsule,extended release 24hr 225 mg PO DAILY torsemide 20 mg tablet 20 mg PO DAILY metoprolol succinate 200 mg tablet extended release 24 hr 200 mg PO DAILY isosorbide mononitrate 30 mg tablet extended release 24 hr 30 mg PO DAILY chlorthalidone 25 mg tablet 25 mg PO DAILY carbamazepine 200 mg tablet 200 mg PO BID pravastatin 80 mg tablet 80 mg PO HS pantoprazole 40 mg tablet,delayed release (DR/EC) 40 mg PO DAILY hydralazine 50 mg tablet 50 mg PO QID Label Comments: 08,12,16,20 lisinopril 40 mg tablet 40 mg PO DAILY ezetimibe 10 mg tablet 10 mg PO DAILY pregabalin 100 mg capsule 100 mg PO QAM pregabalin 150 mg capsule 150 mg PO HS Levemir FlexTouch U-100 Insuln 100 unit/mL (3 mL) insulin pen 80 unit SUBCUT BID insulin aspart U-100 [Novolog Flexpen U-100 Insulin] 100 unit/mL (3 mL) insulin pen 42 unit SUBCUT TIDWM polyethylene glycol 3350 17 gram/dose powder 17 g PO DAILY insulin aspart U-100 [Novolog U-100 Insulin aspart] 100 unit/mL solution 10 unit subcut QPM cephalexin 500 mg capsule 500 mg PO TID 7 Days Qty: 21 0RF cephalexin 500 mg capsule 500 mg PO TID 7 Days Qty: 21 0RF Stand Alone Forms: [facility] Info Instructions
[2022-05-18 19:56] LABS: Basophils Absolute Auto 0.02 K/uL (0.00-0.30); Basophils Percent Auto 0.4 % (0.0-3.0); Eosinophils Absolute Auto 0.21 K/uL (0.00-0.50); Eosinophils Percent Auto 4.4 % (0.0-7.0); Hematocrit 34.5 % (37.0-53.0); Hemoglobin* 11.4 gm/dL (13.5-17.5); Immature Granulocytes Abs Auto 0.01 K/uL (0.00-0.30); Immature Granulocytes Pct Auto 0.2 %; Lymphocytes Percent Auto 45.1 % (20-44); Mean Corpuscular HGB Conc 33 gm/dL (32-36); Mean Corpuscular Hemoglobin 29 pg (26-34); Mean Corpuscular Volume 89 fL (80-100); Monocytes Percent Auto 7.7 % (0.0-11.0); Neutrophils Absolute Auto 2.02 K/uL (1.7-7.0); Neutrophils Percent Auto 42.2 % (42.0-72.0); Platelet Count* 168 K/uL (140-440); RDW Coefficient of Variation % 13.9 % (11.5-15.5); Red Blood Count 3.88 m/uL (4.30-5.90); White Blood Count* 4.79 K/uL (4.50-11.00)
[2022-05-18 20:06] LABS: Slide Review Reflex No
[2022-05-18 20:11] LABS: Albumin* 3.9 g/dL (3.3-5.0)
[2022-05-18 20:14] LABS: Alkaline Phosphatase* 110 U/L (40-150); Aspartate Amino Transferase* 25 U/L (12-35); Bilirubin Direct* 0.3 mg/dL (0.0-0.5); Bilirubin Total* 0.3 mg/dL (0.1-1.5)
[2022-05-18 20:15] LABS: Alanine Aminotransferase* 31 U/L (4-50)
[2022-05-18 20:19] LABS: C Reactive Protein* 1.9 mg/dL (0.5-1.0)
--- NOTE | 2022-05-18 20:42 | ED.NURSE ---
update to staff at living facility on dc info and transport back
[2022-05-18 21:07] VITALS: BP 111/61; PULSE 61; RESP 22; TEMP 36.9
--- NOTE | 2022-05-18 21:07 | ED.NURSE ---
report to [facility], transfer back to facility.
== END 2022-05-18 21:07 | disposition other institution (70) ==
PROVIDERS: Emergency Provider Emergency Medicine
DX: L03.312 Cellulitis of back [any part except buttock and flank] (principal); L03.313 Cellulitis of chest wall
CPT/HCPCS: 36415; 80076; 85025; 86140; 99283; 99284

== ENCOUNTER 2022-05-18 21:01 | Outpatient (CLI) | payer MEDICARE, MEDICAID, SELFPAY | END 2022-05-18 21:02 | disposition home or self-care (01) | PROVIDERS: Visit Provider Family Medicine | DX: L03.319 Cellulitis of trunk, unspecified (principal) | CPT/HCPCS: A0425; A0428 ==

== ENCOUNTER 2022-06-13 11:34 | Outpatient (CLI) | payer MEDICARE, MEDICAID, SELFPAY | END 2022-06-13 11:35 | disposition home or self-care (01) | LOC: AMB 06-15 13:44 | PROVIDERS: Visit Provider Family Medicine | DX: U07.1 COVID-19 (principal); R07.89 Other chest pain | CPT/HCPCS: A0425; A0427 ==

== ENCOUNTER 2022-06-13 11:53 | Emergency (ER) | payer MEDICARE, MEDICAID, SELFPAY ==
[2022-06-13] VITALS (19 sets, daily range): BP systolic 105–164; BP diastolic 32–80; PULSE 68–82; RESP 16; TEMP 36.4; O2SAT 93–96; BMI 62.9
--- NOTE | 2022-06-13 12:42 | CRLHL7_ITS ---
For Patients: As a result of the Cures Act, medical imaging exams and procedure reports are released immediately into your electronic medical record. You may view this report before your referring provider. If you have questions, please contact your health care provider. INDICATION: Chest pain. TECHNIQUE: Chest 1 views. COMPARISON: March 07, 2022. FINDINGS: Cardiovascular and mediastinum: Stable heart size and vasculature. Lungs and pleural spaces: Low lung volumes. Lungs are clear. No sign of infiltrate or mass. No sign of pleural effusion. No pneumothorax. Bones and soft tissues: No significant findings. IMPRESSION: No acute or significant findings. Dictated by Mack Zuniga MD @ 06/13/2022 1:48:14 PM (Electronically Signed)
[2022-06-13] MEDS: 0.9 % SODIUM CHLORIDE 1000 ml 1,000 ML IV (13:02)
[2022-06-13 13:07] LABS: Basophils Absolute Auto 0.01 K/uL (0.00-0.30); Basophils Percent Auto 0.1 % (0.0-3.0); Eosinophils Absolute Auto 0.23 K/uL (0.00-0.50); Eosinophils Percent Auto 3.3 % (0.0-7.0); Hemoglobin* 11.6 gm/dL (13.5-17.5); Lymphocytes Absolute Auto 1.93 K/uL (0.90-2.90); Lymphocytes Percent Auto 27.5 % (20-44); Mean Corpuscular HGB Conc 34 gm/dL (32-36); Mean Corpuscular Hemoglobin 29 pg (26-34); Mean Corpuscular Volume 85 fL (80-100); Monocytes Percent Auto 6.8 % (0.0-11.0); Neutrophils Absolute Auto 4.37 K/uL (1.7-7.0); Neutrophils Percent Auto 62.3 % (42.0-72.0); Platelet Count* 153 K/uL (140-440); RDW Coefficient of Variation % 13.5 % (11.5-15.5); Red Blood Count 4.01 m/uL (4.30-5.90); White Blood Count* 7.02 K/uL (4.50-11.00)
[2022-06-13 13:18] LABS: Slide Review Reflex No
[2022-06-13 13:26] LABS: Troponin, Point-of-Care* 0.01 ng/ml (0.01-0.04)
[2022-06-13 13:29] LABS: Chloride* 106 mmol/L (96-114); Potassium* 4.3 mmol/L (3.6-5.1); Sodium* 140 mmol/L (135-149)
[2022-06-13 13:32] LABS: Blood Urea Nitrogen* 31 mg/dL (7-30); Carbon Dioxide* 29 mmol/L (20-32); Creatinine* 1.2 mg/dL (0.5-1.5); Estimated Glomerular Filt Rate 68 ml/min
[2022-06-13 13:33] LABS: Calcium* 9.2 mg/dL (8.4-10.6); Glucose* 189 mg/dL (60-115)
[2022-06-13 13:42] LABS: NT Pro B Type NatriureticPept* 306 pg/mL
--- NOTE | 2022-06-13 13:56 | ED.CHESTPAIN ---
HPI - Chest Pain General Date Seen: 06/13/22 Chief Complaint: Chest Pain Stated Complaint: Chest pain Time Seen by Provider: 06/13/22 12:18 Source: patient Mode of arrival: ambulatory Limitations: no limitations History of Present Illness HPI narrative: Patient is 61-year-old gentleman who presents here by EMS as he has a positive COVID test at his residence where he is living, he had some fleeting chest pain lasted seconds on both the right-sided and central part of his chest. He comes in because of this. No past history of previous intubations, he does have a history of diabetes, coronary artery disease, hypertension, He tells me that overall feels pretty good he had a sore throat yesterday, wonders if there is a medication he can take for COVID. No nausea vomiting, diarrhea. MD complaint: chest pain Pertinent past history: coronary artery disease Onset: during rest Pain location: substernal, left chest and right chest Pain radiation: none Severity: mild Quality: sharp Exacerbating factors: nothing Treatment prior to arrival: none Related Data Home Medications Medication Instructions Recorded Confirmed amlodipine 10 mg tablet 10 mg PO DAILY 03/07/22 06/13/22 apixaban 5 mg tablet (Eliquis) 5 mg PO BID 03/07/22 06/13/22 aripiprazole 15 mg tablet 7.5 mg PO DAILY 03/07/22 06/13/22 aspirin 81 mg tablet,delayed 81 mg PO DAILY 03/07/22 06/13/22 release carbamazepine 200 mg tablet 200 mg PO BID 03/07/22 06/13/22 chlorthalidone 25 mg tablet 25 mg PO DAILY 03/07/22 06/13/22 ezetimibe 10 mg tablet 10 mg PO DAILY 03/07/22 06/13/22 hydralazine 50 mg tablet 50 mg PO QID 03/07/22 06/13/22 insulin aspart U-100 100 unit/mL 42 unit subcut TIDWM 03/07/22 03/07/22 (3 mL) subcutaneous pen (Novolog FlexPen U-100 Insulin aspart) insulin aspart U-100 100 unit/mL 10 unit subcut QPM 03/07/22 03/07/22 subcutaneous solution (Novolog U-100 Insulin aspart) insulin detemir U-100 100 unit/mL 80 unit subcut BID 03/07/22 03/07/22 (3 mL) subcutaneous pen (Levemir FlexTouch U-100 Insulin) isosorbide mononitrate 30 mg 30 mg PO DAILY 03/07/22 06/13/22 tablet,extended release 24 hr lisinopril 40 mg tablet 40 mg PO DAILY 03/07/22 06/13/22 metoprolol succinate 200 mg 200 mg PO DAILY 03/07/22 03/07/22 tablet,extended release 24 hr pantoprazole 40 mg tablet,delayed 40 mg PO DAILY 03/07/22 06/13/22 release polyethylene glycol 3350 17 17 g PO DAILY 03/07/22 06/13/22 gram/dose oral powder pravastatin 80 mg tablet 80 mg PO HS 03/07/22 06/13/22 pregabalin 100 mg capsule 100 mg PO QAM 03/07/22 06/13/22 pregabalin 150 mg capsule 150 mg PO HS 03/07/22 06/13/22 torsemide 20 mg tablet 20 mg PO DAILY 03/07/22 06/13/22 venlafaxine 75 mg capsule,extended 225 mg PO DAILY 03/07/22 06/13/22 release 24 hr acetaminophen 500 mg tablet mg 06/13/22 albuterol sulfate 90 mcg/actuation inhalation 06/13/22 aerosol inhaler aripiprazole 5 mg tablet mg 06/13/22 carvedilol 25 mg tablet mg 06/13/22 diphenhydramine HCl 50 mg capsule mg 06/13/22 (Banophen) icosapent ethyl 1 gram capsule g PO 06/13/22 (Vascepa) insulin regular hum U-500 conc 500 unit subcut 06/13/22 unit/mL(3 mL) subcut pen (Humulin R U-500 (Conc) Insulin Kwikpen) ketoconazole 2 % shampoo topical 06/13/22 loperamide 2 mg capsule mg 06/13/22 nystatin 100,000 unit/gram topical topical 06/13/22 powder sennosides 8.6 mg tablet (senna) mg 06/13/22 Allergies Allergy/AdvReac Type Severity Reaction Status Date / Time lisinopril AdvReac Verified 06/13/22 12:18 metformin AdvReac Verified 06/13/22 12:18 Review of Systems Status of ROS Reports: 10 or more systems reviewed and unremarkable except as noted in History and below [facility] Medical History CKD (chronic kidney disease) Gout Major depressive disorder Obesity Type 2 diabetes mellitus Social History Smoking Status: Never smoker Do you use any of these nicotine containing products: None Second hand tobacco smoke exposure: No How often do you have a drink containing alcohol: never How often do you have six or more drinks on one occasion: Never AUDIT-C Alcohol total score: 0 Non-prescribed substance use: denies use service: No Exam Narrative Exam Narrative: Patient is seen in room 7, he is in no apparent distress, is a very large gentleman, speaking to me normally. Vital signs are assessed and otherwise normal. Pupils are equal round reactive to light, TMs are normal oropharynx normal, neck is supple, chest is clear bilaterally with no wheezing crackles noted, abdomen is soft and large, no tenderness to palpation, no organomegaly, bowel sounds are normal, umbilical hernia noted. This is nontender, moves extremities independently and well both upper and lower normal neurologic power, no rashes. Const Vital Signs, click to edit/add: Vital Signs - 24 hr 06/13/22 12:07 06/13/22 12:34 06/13/22 12:36 Temperature 97.5 F L Pulse Rate 81 69 Pulse Rate [Pulse Oximeter] 68 Respiratory Rate 16 Blood Pressure 105/57 L Blood Pressure [Left Upper Arm] 109/57 L Pulse Oximetry 96 95 Oxygen Delivery Method Room Air Room Air 06/13/22 12:45 06/13/22 13:00 06/13/22 13:02 Temperature Pulse Rate 71 79 73 Pulse Rate [Pulse Oximeter] Respiratory Rate Blood Pressure 115/51 L Blood Pressure [Left Upper Arm] Pulse Oximetry 93 93 94 Oxygen Delivery Method 06/13/22 13:15 06/13/22 13:30 06/13/22 13:32 Temperature Pulse Rate 78 71 72 Pulse Rate [Pulse Oximeter] Respiratory Rate Blood Pressure 106/32 L Blood Pressure [Left Upper Arm] Pulse Oximetry 96 94 95 Oxygen Delivery Method 06/13/22 13:33 06/13/22 13:45 06/13/22 14:00 Temperature Pulse Rate 74 73 82 Pulse Rate [Pulse Oximeter] Respiratory Rate Blood Pressure Blood Pressure [Left Upper Arm] Pulse Oximetry 93 94 94 Oxygen Delivery Method 06/13/22 14:02 06/13/22 14:15 06/13/22 14:30 Temperature Pulse Rate 76 76 73 Pulse Rate [Pulse Oximeter] Respiratory Rate Blood Pressure 113/63 Blood Pressure [Left Upper Arm] Pulse Oximetry 95 95 93 Oxygen Delivery Method 06/13/22 14:32 06/13/22 15:02 06/13/22 15:32 Temperature Pulse Rate 74 Pulse Rate [Pulse Oximeter] Respiratory Rate Blood Pressure 128/51 L 135/62 164/80 H Blood Pressure [Left Upper Arm] Pulse Oximetry 93 Oxygen Delivery Method 06/13/22 13:46 Temperature Pulse Rate Pulse Rate [Pulse Oximeter] Respiratory Rate Blood Pressure Blood Pressure [Left Upper Arm] Pulse Oximetry 95 Oxygen Delivery Method Course Course Hospital Course: I reviewed all the patient's medications in the liver pool interaction check her, unfortunately he is on carbamazepine, which is a huge red flag in prescribing Paxlovid. Cannot even stop this medication and then restarted. Given this he is not a candidate, and we will does have to watch his COVID symptoms hoping that he does not worsen, with his chronic medical conditions. Given his negative troponin x2, negative EKGs, the fact he is on a blood thinner already, Eliquis he is at low risk for pulmonary embolism. I think at the present time we can send him back to his care establishment, and watch him for worsening. To be brought back if shortness of breath, chest pain, weakness, or other issues. Reevaluation(s) Reevaluation #1: Repeat EKG is done at 3:30 p.m., normal sinus rhythm, ventricular rate 75, no acute changes are noted, patient is pain-free, Vital Signs Vital signs: Initial Vital Signs Temperature 97.5 F L 06/13/22 12:07 Temperature Source Temporal Artery Scan 06/13/22 12:07 Pulse Rate 68 06/13/22 12:07 Respiratory Rate 16 06/13/22 12:07 Blood Pressure 109/57 L 06/13/22 12:07 Blood Pressure Mean 74 06/13/22 12:07 Blood Pressure Position Supine 06/13/22 12:07 Pulse Oximetry 96 06/13/22 12:07 Oxygen Delivery Method 06/13/22 12:07 Vital Signs Temperature 97.5 F L 06/13/22 12:07 Pulse Rate 68 06/13/22 12:07 Respiratory Rate 16 06/13/22 12:07 Blood Pressure 109/57 L 06/13/22 12:07 Pulse Oximetry 96 06/13/22 12:07 Oxygen Delivery Method 06/13/22 12:07 Temperature 97.5 F L 06/13/22 12:07 Pulse Rate 74 06/13/22 14:32 Respiratory Rate 16 06/13/22 12:07 Blood Pressure 164/80 H 06/13/22 15:32 Pulse Oximetry 93 06/13/22 14:32 Oxygen Delivery Method 06/13/22 12:34 MDM - Chest Pain MDM Narrative Medical decision making narrative: During the evaluation of this patient I considered multiple differential diagnosis is. The life-threatening differential diagnosis include coronary disease/NH, pulmonary embolism, pneumothorax, pneumonia, and aortic dissection. Other differential diagnosis included but were not limited to pericarditis, myocarditis, chest wall pain, GERD, esophageal rupture, rib fracture contusion, pleurisy, as well as other etiologies. Medical Records Data Attestation: I reviewed the patient's medical records. Lab Data Attestation: I reviewed the patient's lab results. Labs: Lab Results 06/13/22 06/13/22 06/13/22 Range/Units 13:00 13:00 13:00 WBC 7.02 (4.50-11.00) K/uL RBC 4.01 L (4.30-5.90) m/uL Hgb 11.6 L (13.5-17.5) gm/dL Hct 34.0 L (37.0-53.0) % MCV 85 (80-100) fL MCH 29 (26-34) pg MCHC 34 (32-36) gm/dL RDW Coeff of Kaylen 13.5 (11.5-15.5) % Plt Count 153 (140-440) K/uL Neut % (Auto) 62.3 (42.0-72.0) % Lymph % (Auto) 27.5 (20-44) % Mathews % (Auto) 6.8 (0.0-11.0) % Eos % (Auto) 3.3 (0.0-7.0) % Baso % (Auto) 0.1 (0.0-3.0) % Neut # (Auto) 4.37 (1.7-7.0) K/uL Lymph # (Auto) 1.93 (0.90-2.90) K/uL Mathews # (Auto) 0.50 (0.00-0.90) K/UL Eos # (Auto) 0.23 (0.00-0.50) K/uL Baso # (Auto) 0.01 (0.00-0.30) K/uL Sodium 140 (135-149) mmol/L Potassium 4.3 (3.6-5.1) mmol/L Chloride 106 (96-114) mmol/L Carbon Dioxide 29 (20-32) mmol/L BUN 31 H (7-30) mg/dL Creatinine 1.2 (0.5-1.5) mg/dL Estimated Creat Clear 57.60 Estimated GFR 68 ml/min Glucose 189 H (60-115) mg/dL Calcium 9.2 (8.4-10.6) mg/dL NT-Pro-B Natriuret Pep pg/mL POC Troponin I 0.01 (0.01-0.04) ng/ml 06/13/22 06/13/22 Range/Units 13:00 15:20 WBC (4.50-11.00) K/uL RBC (4.30-5.90) m/uL Hgb (13.5-17.5) gm/dL Hct (37.0-53.0) % MCV (80-100) fL MCH (26-34) pg MCHC (32-36) gm/dL RDW Coeff of Kaylen (11.5-15.5) % Plt Count (140-440) K/uL Neut % (Auto) (42.0-72.0) % Lymph % (Auto) (20-44) % Mathews % (Auto) (0.0-11.0) % Eos % (Auto) (0.0-7.0) % Baso % (Auto) (0.0-3.0) % Neut # (Auto) (1.7-7.0) K/uL Lymph # (Auto) (0.90-2.90) K/uL Mathews # (Auto) (0.00-0.90) K/UL Eos # (Auto) (0.00-0.50) K/uL Baso # (Auto) (0.00-0.30) K/uL Sodium (135-149) mmol/L Potassium (3.6-5.1) mmol/L Chloride (96-114) mmol/L Carbon Dioxide (20-32) mmol/L BUN (7-30) mg/dL Creatinine (0.5-1.5) mg/dL Estimated Creat Clear Estimated GFR ml/min Glucose (60-115) mg/dL Calcium (8.4-10.6) mg/dL NT-Pro-B Natriuret Pep 306 pg/mL POC Troponin I 0.02 (0.01-0.04) ng/ml Imaging Data Chest x-ray: Attestation: I have reviewed the pertinent imaging results. My impression: No acute findings Radiologist's impression: Patient: SKYLAR MCCARTHY Facility:?[facility] Patient ID:?[id number] Site Patient ID:?[id number]. Site :?[id number] Study:?XRay Chest PORTABLE-06/13/2022 1:22:47 PM Ordering Physician:Batsheva eLdesma Final Report: INDICATION: Chest pain. TECHNIQUE: Chest 1 views. COMPARISON: March 07, 2022. FINDINGS: Cardiovascular and mediastinum: Stable heart size and vasculature. Lungs and pleural spaces: Low lung volumes. Lungs are clear. No sign of infiltrate or mass. No sign of pleural effusion. No pneumothorax. Bones and soft tissues: No significant findings. IMPRESSION: No acute or significant findings. Dictated by Mack Zuniga MD @ 06/13/2022 1:48:14 PM (Electronic Signature) ECG Data Attestation: I personally reviewed and interpreted this ECG as follows: ECG interpretation date: 06/13/22 Interpretation: EKG shows normal sinus rhythm, with a ventricular rate of 70, normal QRS, QT and MN intervals are noted, assessment normal EKG no acute changes. Discharge Plan Discharge Clinical Impression: COVID-19, Atypical chest pain Patient Disposition: Home, Self-Care Condition: Stable Instructions: Chest Pain (DC), COVID-19 (Coronavirus Disease 2019) (ED) Additional Instructions: Home rest. You're not a candidate for the anti-COVID medication as there is some vague interaction with your carbamazepine. Continue to monitor the situation, most people get through this without no problems at all, if the breathing issues worsen, then he will need to be reseen. Otherwise just some Tylenol for the discomfort in both his throat in his fevers. Prescriptions: No Action amlodipine 10 mg tablet 10 mg PO DAILY aripiprazole 15 mg tablet 7.5 mg PO DAILY Eliquis 5 mg tablet 5 mg PO BID aspirin 81 mg tablet,delayed release (DR/EC) 81 mg PO DAILY venlafaxine 75 mg capsule,extended release 24hr 225 mg PO DAILY torsemide 20 mg tablet 20 mg PO DAILY metoprolol succinate 200 mg tablet extended release 24 hr 200 mg PO DAILY isosorbide mononitrate 30 mg tablet extended release 24 hr 30 mg PO DAILY chlorthalidone 25 mg tablet 25 mg PO DAILY carbamazepine 200 mg tablet 200 mg PO BID pravastatin 80 mg tablet 80 mg PO HS pantoprazole 40 mg tablet,delayed release (DR/EC) 40 mg PO DAILY hydralazine 50 mg tablet 50 mg PO QID Label Comments: 08,12,16,20 lisinopril 40 mg tablet 40 mg PO DAILY ezetimibe 10 mg tablet 10 mg PO DAILY pregabalin 100 mg capsule 100 mg PO QAM pregabalin 150 mg capsule 150 mg PO HS Levemir FlexTouch U-100 Insuln 100 unit/mL (3 mL) insulin pen 80 unit SUBCUT BID insulin aspart U-100 [Novolog FlexPen U-100 Insulin] 100 unit/mL (3 mL) insulin pen 42 unit SUBCUT TIDWM polyethylene glycol 3350 17 gram/dose powder 17 g PO DAILY insulin aspart U-100 [Novolog U-100 Insulin aspart] 100 unit/mL solution 10 unit subcut QPM carvedilol 25 mg tablet sennosides [senna] 8.6 mg tablet ketoconazole 2 % shampoo TOPICAL diphenhydramine HCl [Banophen] 50 mg capsule loperamide 2 mg capsule acetaminophen 500 mg tablet nystatin 100,000 unit/gram powder TOPICAL albuterol sulfate 90 mcg/actuation HFA aerosol inhaler INHALATION aripiprazole 5 mg tablet icosapent ethyl [Vascepa] 1 gram capsule PO Humulin R U-500 (Conc) Kwikpen 500 unit/mL (3 mL) insulin pen SUBCUT Follow Up/Referrals: Provider,Not a Local [Primary Care Provider] - Stand Alone Forms: MyHealth Info Instructions
[2022-06-13 15:43] LABS: Troponin, Point-of-Care* 0.02 ng/ml (0.01-0.04)
--- NOTE | 2022-06-13 16:23 | ED.NURSE ---
Call to [facility] in [place] and handoff report given to STARLA Siddiqui ([phone]). Call to dispatch to arrange pt transport back to facility. Pt aware of and approves transportation costs. Current ETA from dispatch is one hour.
--- NOTE | 2022-06-13 18:29 | ED.NURSE ---
Call to pt's care facility and update given to STARLA Siddiqui that pt is enroute and pt refused tylenol at this time, but stated he may want some before bedtime. RN verbalizes understanding.
== END 2022-06-13 18:30 | disposition home or self-care (01) ==
PROVIDERS: Emergency Provider Family Medicine
DX: U07.1 COVID-19 (principal); R07.89 Other chest pain
CPT/HCPCS: 36415; 71045; 80048; 83880; 84484; 85025; 93005; 94761; 96360; 96361; 99284; 99285; J7030

== ENCOUNTER 2022-06-13 18:10 | Outpatient (CLI) | payer MEDICARE, MEDICAID, SELFPAY | END 2022-06-13 18:11 | disposition home or self-care (01) | LOC: AMB 06-15 14:49 | PROVIDERS: Visit Provider Family Medicine | DX: Z93.3 Colostomy status (principal) | CPT/HCPCS: A0425; A0428 ==

== ENCOUNTER 2022-07-24 18:37 | Outpatient (CLI) | payer MEDICARE, MEDICAID, SELFPAY | END 2022-07-24 18:38 | disposition home or self-care (01) | LOC: AMB 07-25 01:24 | PROVIDERS: Visit Provider Family Medicine | DX: R07.89 Other chest pain (principal) | CPT/HCPCS: A0425; A0427 ==

== ENCOUNTER 2022-07-24 19:37 | Inpatient (IN) | payer MEDICARE, MEDICAID, SELFPAY ==
[2022-07-24] VITALS (26 sets, daily range): BP systolic 104–158; BP diastolic 22–88; PULSE 87–106; RESP 34; TEMP 37.8–38.4; O2SAT 89–100; BMI 64.9
--- NOTE | 2022-07-24 20:01 | CRLHL7_ITS ---
For Patients: As a result of the Century Cures Act, medical imaging exams and procedure reports are released immediately into your electronic medical record. You may view this report before your referring provider. If you have questions, please contact your health care provider. INDICATION: Shortness of breath. TECHNIQUE: Chest 1 view. COMPARISON: 06/13/2022. FINDINGS/IMPRESSION: Cardiovascular and mediastinum: Stable cardiomediastinal silhouette. Lungs and pleural spaces: Mild vascular congestion. No focal consolidation, pleural effusion, or pneumothorax. Bones and soft tissues: No acute findings. Dictated by Stas Barahona MD @ 07/24/2022 8:40:57 PM (Electronically Signed)
--- NOTE | 2022-07-24 20:04 | ED_ITS ---
HPI - SOB/Dyspnea General Chief Complaint: Shortness of Breath/Dyspnea Stated Complaint: Fever,Shortness of Breath Time Seen by Provider: 07/24/22 19:50 History of Present Illness HPI Narrative: Pt is a 61 year old gentleman who presents with shortness of breath. Pt lives in what sounds like an assisted living in [place]. Pt developed shortness of breath and cough this afternoon. He also developed a fever. Pt states that he had been feeling fine and in his usual state of health. Pt did have COVID 19 approximately 2 months ago and was treated at home. Pt was brought in by amubulance requiring 2 liters of oxygen to maintain his oxygen saturation. Pt is also noted to be febrile upon arrival. Pt is morbidly obese with mild chronic skin breakdownon his anterior abdomen. Pt states that this area always looks like that and that there have been no recent changes. Pt denies headache, chills, nausea, vomiting, chest pain or dysuria. Related Data Home Medications Medication Instructions Recorded Confirmed amlodipine 10 mg tablet 10 mg PO DAILY 03/07/22 06/13/22 apixaban 5 mg tablet (Eliquis) 5 mg PO BID 03/07/22 06/13/22 aripiprazole 15 mg tablet 7.5 mg PO DAILY 03/07/22 06/13/22 aspirin 81 mg tablet,delayed 81 mg PO DAILY 03/07/22 06/13/22 release carbamazepine 200 mg tablet 200 mg PO BID 03/07/22 06/13/22 chlorthalidone 25 mg tablet 25 mg PO DAILY 03/07/22 06/13/22 ezetimibe 10 mg tablet 10 mg PO DAILY 03/07/22 06/13/22 hydralazine 50 mg tablet 50 mg PO QID 03/07/22 06/13/22 insulin aspart U-100 100 unit/mL 42 unit subcut TIDWM 03/07/22 03/07/22 (3 mL) subcutaneous pen (Novolog FlexPen U-100 Insulin aspart) insulin aspart U-100 100 unit/mL 10 unit subcut QPM 03/07/22 03/07/22 subcutaneous solution (Novolog U-100 Insulin aspart) insulin detemir U-100 100 unit/mL 80 unit subcut BID 03/07/22 03/07/22 (3 mL) subcutaneous pen (Levemir FlexTouch U-100 Insulin) isosorbide mononitrate 30 mg 30 mg PO DAILY 03/07/22 06/13/22 tablet,extended release 24 hr lisinopril 40 mg tablet 40 mg PO DAILY 03/07/22 06/13/22 metoprolol succinate 200 mg 200 mg PO DAILY 03/07/22 03/07/22 tablet,extended release 24 hr pantoprazole 40 mg tablet,delayed 40 mg PO DAILY 03/07/22 06/13/22 release polyethylene glycol 3350 17 17 g PO DAILY 03/07/22 06/13/22 gram/dose oral powder pravastatin 80 mg tablet 80 mg PO HS 03/07/22 06/13/22 pregabalin 100 mg capsule 100 mg PO QAM 03/07/22 06/13/22 pregabalin 150 mg capsule 150 mg PO HS 03/07/22 06/13/22 torsemide 20 mg tablet 20 mg PO DAILY 03/07/22 06/13/22 venlafaxine 75 mg capsule,extended 225 mg PO DAILY 03/07/22 06/13/22 release 24 hr acetaminophen 500 mg tablet mg 06/13/22 albuterol sulfate 90 mcg/actuation inhalation 06/13/22 aerosol inhaler aripiprazole 5 mg tablet mg 06/13/22 carvedilol 25 mg tablet mg 06/13/22 diphenhydramine HCl 50 mg capsule mg 06/13/22 (Banophen) icosapent ethyl 1 gram capsule g PO 06/13/22 (Vascepa) insulin regular hum U-500 conc 500 unit subcut 06/13/22 unit/mL(3 mL) subcut pen (Humulin R U-500 (Conc) Insulin Kwikpen) ketoconazole 2 % shampoo topical 06/13/22 loperamide 2 mg capsule mg 06/13/22 nystatin 100,000 unit/gram topical topical 06/13/22 powder sennosides 8.6 mg tablet (senna) mg 06/13/22 Allergies Allergy/AdvReac Type Severity Reaction Status Date / Time lisinopril AdvReac Verified 07/24/22 19:43 metformin AdvReac Verified 07/24/22 19:43 Review of Systems Status of ROS: Reports: 10 or more systems reviewed and unremarkable except as noted in History and below [facility] Medical History CKD (chronic kidney disease) Gout Major depressive disorder Obesity Type 2 diabetes mellitus Social History Smoking Status: Never smoker Do you use any of these nicotine containing products: None Second hand tobacco smoke exposure: No How often do you have a drink containing alcohol: never How often do you have six or more drinks on one occasion: Never AUDIT-C Alcohol total score: 0 Non-prescribed substance use: denies use service: No Exam Narrative: Exam Narrative: EXAM GENERAL: Patient appears obese and breathing oxygen at 2 liters per minute. EYES: No scleral icterus. LYMPH: No supraclavicular or cervical lymphadenopathy. SKIN: Mild skin breakdown and erythema over the anterior abd panus. EXT: No dependent lower extremity pedal edema. HEART: Regular rate and rhythm with no murmurs, rubs, or gallops. Mildly t achycardic. LUNGS: Decreased breath sounds bilaterally. ABD: Soft, non tender, non distended. PSYCH: Good eye contact, speech is not pressured. Const: Vital Signs, click to edit/add: Vital Signs - 24 hr 07/24/22 19:44 07/24/22 21:14 07/24/22 19:55 Temperature 101.2 F H 101.2 F H Pulse Rate 106 H Pulse Rate [Right Pulse Oximeter] 105 H Respiratory Rate 34 H 34 H Blood Pressure Blood Pressure [Le ft Forearm] 158/61 H Pulse Oximetry 97 97 98 Oxygen Delivery Me thod Nasal Cannula Nasal Cannula Oxygen Flow Rate 2 2 07/24/22 20:00 07/24/22 20:15 07/24/22 20:30 Temperature Pulse Rate 105 H 104 H 105 H Pulse Rate [Right Pulse Oximeter] Respiratory Rate Blood Pressure Blood Pressure [Le ft Forearm] Pulse Oximetry 98 98 98 Oxygen Delivery Me thod Oxygen Flow Rate 07/24/22 20:45 07/24/22 21:00 07/24/22 21:43 Temperature Pulse Rate 102 H 103 H Pulse Rate [Right Pulse Oximeter] Respiratory Rate Blood Pressure 123/58 L Blood Pressure [Le ft Forearm] Pulse Oximetry 99 98 Oxygen Delivery Me thod Oxygen Flow Rate 07/24/22 21:46 07/24/22 22:02 07/24/22 22:27 Temperature Pulse Rate 91 Pulse Rate [Right Pulse Oximeter] Respiratory Rate Blood Pressure 114/63 104/47 L Blood Pressure [Le ft Forearm] Pulse Oximetry 99 Oxygen Delivery Me thod Oxygen Flow Rate 07/24/22 22:33 07/24/22 22:30 07/24/22 22:32 Temperature 100.0 F H Pulse Rate 90 89 Pulse Rate [Right Pulse Oximeter] Respiratory Rate Blood Pressure 122/66 Blood Pressure [Le ft Forearm] Pulse Oximetry 99 99 Oxygen Delivery Me thod Oxygen Flow Rate Course Course Hospital Course: Pt could certainly be septic. Blood cultures, lactate, CBC, CMP, Amylase, Troponin, D dimer, Chest X ray ordered. Reevaluation(s) Reevaluation #1: Labs reviewed and are stable upon my review. Tylenol has brought temp down to 100. Fluid bolus has helped the tachycardia. Chest x ray negative upon my review. Will proceed with CT of chest. Pt's blood has been cultured. Pt too weak to go home although diagnosis unclear at this point. EKG showed mild sinus tachycardia, D dimer and troponin negative. Time: 22:37 Reevaluation #2: CT of chest negative for pathology. Pt does have erythema of questionable significant on the anterior abd. Pt case discussed with hospitalist who agrees with admission. Pt given first dose of Zosyn. Time: 22:57 Vital Signs Vital signs: Initial Vital Signs Temperature 101.2 F H 07/24/22 19:44 Temperature Source Temporal Artery Scan 07/24/22 19:44 Pulse Rate 105 H 07/24/22 19:44 Pulse Rhythm 07/24/22 19:44 Pulse Strength 3+ Normal 07/24/22 19:44 Respiratory Rate 34 H 07/24/22 19:44 Blood Pressure 158/61 H 07/24/22 19:44 Blood Pressure Mean 93 07/24/22 19:44 Blood Pressure Position Semi-Fowlers 07/24/22 19:44 Pulse Oximetry 97 07/24/22 19:44 Oxygen Delivery Method 07/24/22 19:44 Oxygen Flow Rate 2 07/24/22 19:44 Vital Signs Temperature 101.2 F H 07/24/22 19:44 Pulse Rate 105 H 07/24/22 19:44 Respiratory Rate 34 H 07/24/22 19:44 Blood Pressure 158/61 H 07/24/22 19:44 Pulse Oximetry 97 07/24/22 19:44 Oxygen Delivery Method 07/24/22 19:44 Oxygen Flow Rate 2 07/24/22 19:44 Temperature 100.0 F H 07/24/22 22:33 Pulse Rate 89 07/24/22 22:32 Respiratory Rate 34 H 07/24/22 21:14 Blood Pressure 122/66 07/24/22 22:32 Pulse Oximetry 99 07/24/22 22:32 Oxygen Delivery Method 07/24/22 21:14 Oxygen Flow Rate 2 07/24/22 21:14 MDM - SOB/Dyspnea MDM Narrative Medical decision making narrative: Pt is a 61 year old gentleman who is obese with a complex medical history who presents with fever, hypoxia and tachycardia. Etiology unclear. Cultures collected. Viral swabs negative. Pt's imaging and lab reviewed. Pt given Tylenol and saline bolus. Pt will be admitted for further evaluation and treatment. Differential includes pneumonia, uti, cellulitis, vasculitis, sepsis. Medical Records Attestation: I reviewed the patient's medical records. Lab Data Labs: Lab Results 07/24/22 07/24/22 07/24/22 Range/Units 19:48 20:01 20:16 WBC 6.62 (4.50-11.00) K/uL RBC 4.45 (4.30-5.90) m/uL Hgb 12.9 L (13.5-17.5) gm/dL Hct 38.3 (37.0-53.0) % MCV 86 (80-100) fL MCH 29 (26-34) pg MCHC 34 (32-36) gm/dL RDW Coeff of Kaylen 13.7 (11.5-15.5) % Plt Count 140 (140-440) K/uL Neut % (Auto) 85.9 H (42.0-72.0) % Lymph % (Auto) 8.6 L (20-44) % [place] % (Auto) 4.5 (0.0-11.0) % Eos % (Auto) 0.5 (0.0-7.0) % Baso % (Auto) 0.2 (0.0-3.0) % Neut # (Auto) 5.70 (1.7-7.0) K/uL Lymph # (Auto) 0.60 L (0.90-2.90) K/uL [place] # (Auto) 0.30 (0.00-0.90) K/UL Eos # (Auto) 0.03 (0.00-0.50) K/uL Baso # (Auto) 0.01 (0.00-0.30) K/uL D-Dimer Quant (PE/DVT) (0.00-0.50) ug/ml ABG pH (7.35-7.45) ABG pCO2 (35-45) mmHG ABG pO2 (80-105) mmHG ABG HCO3 (21-28) mmol/L ABG Total CO2 (21-30) mmol/l ABG O2 Saturation (92-100) % ABG Base Excess (-3.0-3.0) mmol/L Sodium (135-149) mmol/L Potassium (3.6-5.1) mmol/L Chloride (96-114) mmol/L Carbon Dioxide (20-32) mmol/L BUN (7-30) mg/dL Creatinine (0.5-1.5) mg/dL Estimated Creat Clear Estimated GFR ml/min Glucose (60-115) mg/dL Lactate (0.5-1.9) mmol/L Calcium (8.4-10.6) mg/dL Total Bilirubin (0.1-1.5) mg/dL AST (12-35) U/L ALT (4-50) U/L Alkaline Phosphatase (40-150) U/L Troponin I (0.01-0.04) ng/mL Total Protein (6.0-8.3) g/dL Albumin (3.3-5.0) g/dL Amylase (18-89) U/L Urine Color Yellow (Yellow) Urine Appearance Clear (Clear) Urine pH 5.0 (5.0-8.5) Ur Specific [place] 1.015 (1.000-1.030) Urine Protein Negative (Negative) Urine Glucose (UA) 2+ A (Negative) Urine Ketones Negative (Negative) Urine Blood Negative (Negative) Urine Nitrite Negative (Negative) Urine Bilirubin Negative (Negative) Urine Urobilinogen 0.2 (0.2-1.0) Ur Leukocyte Esterase Negative (Negative) SARS-CoV-2 (PCR) Negative SARS-CoV-2 (Negative) Influenza Type A (PCR) Negative PCR FLU A (Negative) Influenza Type B (PCR) Negative PCR FLU B (Negative) RSV (PCR) Negative PCR RSV (Negative) 07/24/22 07/24/22 07/24/22 Range/Units 20:16 20:16 20:16 WBC (4.50-11.00) K/uL RBC (4.30-5.90) m/uL Hgb (13.5-17.5) gm/dL Hct (37.0-53.0) % MCV (80-100) fL MCH (26-34) pg MCHC (32-36) gm/dL RDW Coeff of Kaylen (11.5-15.5) % Plt Count (140-440) K/uL Neut % (Auto) (42.0-72.0) % Lymph % (Auto) (20-44) % [place] % (Auto) (0.0-11.0) % Eos % (Auto) (0.0-7.0) % Baso % (Auto) (0.0-3.0) % Neut # (Auto) (1.7-7.0) K/uL Lymph # (Auto) (0.90-2.90) K/uL [place] # (Auto) (0.00-0.90) K/UL Eos # (Auto) (0.00-0.50) K/uL Baso # (Auto) (0.00-0.30) K/uL D-Dimer Quant (PE/DVT) < 0.27 (0.00-0.50) ug/ml ABG pH 7.40 (7.35-7.45) ABG pCO2 43 (35-45) mmHG ABG pO2 89.9 (80-105) mmHG ABG HCO3 27 (21-28) mmol/L ABG Total CO2 24 (21-30) mmol/l ABG O2 Saturation 96 (92-100) % ABG Base Excess 1.5 (-3.0-3.0) mmol/L Sodium 136 (135-149) mmol/L Potassium 4.6 (3.6-5.1) mmol/L Chloride 103 (96-114) mmol/L Carbon Dioxide 24 (20-32) mmol/L BUN 42 H (7-30) mg/dL Creatinine 1.3 (0.5-1.5) mg/dL Estimated Creat Clear 51.25 Estimated GFR 62 ml/min Glucose 229 H (60-115) mg/dL Lactate 1.5 (0.5-1.9) mmol/L Calcium 9.1 (8.4-10.6) mg/dL Total Bilirubin 0.5 (0.1-1.5) mg/dL AST 32 (12-35) U/L ALT 27 (4-50) U/L Alkaline Phosphatase 89 (40-150) U/L Troponin I 0.02 (0.01-0.04) ng/mL Total Protein 7.6 (6.0-8.3) g/dL Albumin 4.1 (3.3-5.0) g/dL Amylase 46 (18-89) U/L Urine Color (Yellow) Urine Appearance (Clear) Urine pH (5.0-8.5) Ur Specific [place] (1.000-1.030) Urine Protein (Negative) Urine Glucose (UA) (Negative) Urine Ketones (Negative) Urine Blood (Negative) Urine Nitrite (Negative) Urine Bilirubin (Negative) Urine Urobilinogen (0.2-1.0) Ur Leukocyte Esterase (Negative) SARS-CoV-2 (PCR) (Negative) Influenza Type A (PCR) (Negative) Influenza Type B (PCR) (Negative) RSV (PCR) (Negative) 07/24/22 Range/Units 20:16 WBC (4.50-11.00) K/uL RBC (4.30-5.90) m/uL Hgb (13.5-17.5) gm/dL Hct (37.0-53.0) % MCV (80-100) fL MCH (26-34) pg MCHC (32-36) gm/dL RDW Coeff of Kaylen (11.5-15.5) % Plt Count (140-440) K/uL Neut % (Auto) (42.0-72.0) % Lymph % (Auto) (20-44) % [place] % (Auto) (0.0-11.0) % Eos % (Auto) (0.0-7.0) % Baso % (Auto) (0.0-3.0) % Neut # (Auto) (1.7-7.0) K/uL Lymph # (Auto) (0.90-2.90) K/uL [place] # (Auto) (0.00-0.90) K/UL Eos # (Auto) (0.00-0.50) K/uL Baso # (Auto) (0.00-0.30) K/uL D-Dimer Quant (PE/DVT) (0.00-0.50) ug/ml ABG pH (7.35-7.45) ABG pCO2 (35-45) mmHG ABG pO2 (80-105) mmHG ABG HCO3 (21-28) mmol/L ABG Total CO2 (21-30) mmol/l ABG O2 Saturation (92-100) % ABG Base Excess (-3.0-3.0) mmol/L Sodium (135-149) mmol/L Potassium (3.6-5.1) mmol/L Chloride (96-114) mmol/L Carbon Dioxide (20-32) mmol/L BUN (7-30) mg/dL Creatinine (0.5-1.5) mg/dL Estimated Creat Clear Estimated GFR ml/min Glucose (60-115) mg/dL Lactate (0.5-1.9) mmol/L Calcium (8.4-10.6) mg/dL Total Bilirubin (0.1-1.5) mg/dL AST (12-35) U/L ALT (4-50) U/L Alkaline Phosphatase (40-150) U/L Troponin I Cancelled (0.01-0.04) ng/mL Total Protein (6.0-8.3) g/dL Albumin (3.3-5.0) g/dL Amylase (18-89) U/L Urine Color (Yellow) Urine Appearance (Clear) Urine pH (5.0-8.5) Ur Specific [place] (1.000-1.030) Urine Protein (Negative) Urine Glucose (UA) (Negative) Urine Ketones (Negative) Urine Blood (Negative) Urine Nitrite (Negative) Urine Bilirubin (Negative) Urine Urobilinogen (0.2-1.0) Ur Leukocyte Esterase (Negative) SARS-CoV-2 (PCR) (Negative) Influenza Type A (PCR) (Negative) Influenza Type B (PCR) (Negative) RSV (PCR) (Negative) Discharge Plan Discharge Clinical Impression: Fever Patient Disposition: Admitted As Inpatient Condition: Stable Activity Level: No Restrictions Discharge Diet: Regular Prescriptions: No Action amlodipine 10 mg tablet 10 mg PO DAILY aripiprazole 15 mg tablet 7.5 mg PO DAILY Eliquis 5 mg tablet 5 mg PO BID aspirin 81 mg tablet,delayed release (DR/EC) 81 mg PO DAILY venlafaxine 75 mg capsule,extended release 24hr 225 mg PO DAILY torsemide 20 mg tablet 20 mg PO DAILY metoprolol succinate 200 mg tablet extended release 24 hr 200 mg PO DAILY isosorbide mononitrate 30 mg tablet extended release 24 hr 30 mg PO DAILY chlorthalidone 25 mg tablet 25 mg PO DAILY carbamazepine 200 mg tablet 200 mg PO BID pravastatin 80 mg tablet 80 mg PO HS pantoprazole 40 mg tablet,delayed release (DR/EC) 40 mg PO DAILY hydralazine 50 mg tablet 50 mg PO QID Label Comments: 08,12,16,20 lisinopril 40 mg tablet 40 mg PO DAILY ezetimibe 10 mg tablet 10 mg PO DAILY pregabalin 100 mg capsule 100 mg PO QAM pregabalin 150 mg capsule 150 mg PO HS Levemir FlexTouch U-100 Insuln 100 unit/mL (3 mL) insulin pen 80 unit SUBCUT BID insulin aspart U-100 [Novolog FlexPen U-100 Insulin] 100 unit/mL (3 mL) insulin pen 42 unit SUBCUT TIDWM polyethylene glycol 3350 17 gram/dose powder 17 g PO DAILY insulin aspart U-100 [Novolog U-100 Insulin aspart] 100 unit/mL solution 10 unit subcut QPM carvedilol 25 mg tablet sennosides [senna] 8.6 mg tablet ketoconazole 2 % shampoo TOPICAL diphenhydramine HCl [Banophen] 50 mg capsule loperamide 2 mg capsule acetaminophen 500 mg tablet nystatin 100,000 unit/gram powder TOPICAL albuterol sulfate 90 mcg/actuation HFA aerosol inhaler INHALATION aripiprazole 5 mg tablet icosapent ethyl [Vascepa] 1 gram capsule PO Humulin R U-500 (Conc) Kwikpen 500 unit/mL (3 mL) insulin pen SUBCUT Follow Up/Referrals: Provider,Not a Local [Primary Care Provider] -
[2022-07-24 20:28] LABS: Basophils Absolute Auto 0.01 K/uL (0.00-0.30); Basophils Percent Auto 0.2 % (0.0-3.0); Eosinophils Absolute Auto 0.03 K/uL (0.00-0.50); Eosinophils Percent Auto 0.5 % (0.0-7.0); Hematocrit 38.3 % (37.0-53.0); Hemoglobin* 12.9 gm/dL (13.5-17.5); Immature Granulocytes Abs Auto 0.02 K/uL (0.00-0.30); Immature Granulocytes Pct Auto 0.3 %; Lymphocytes Percent Auto 8.6 % (20-44); Mean Corpuscular HGB Conc 34 gm/dL (32-36); Mean Corpuscular Hemoglobin 29 pg (26-34); Mean Corpuscular Volume 86 fL (80-100); Monocytes Percent Auto 4.5 % (0.0-11.0); Neutrophils Percent Auto 85.9 % (42.0-72.0); Platelet Count* 140 K/uL (140-440); RDW Coefficient of Variation % 13.7 % (11.5-15.5); Red Blood Count 4.45 m/uL (4.30-5.90); White Blood Count* 6.62 K/uL (4.50-11.00)
[2022-07-24 20:31] LABS: Slide Review Reflex No
[2022-07-24] MEDS: 0.9 % SODIUM CHLORIDE 1000 ml 1,000 ML IV (20:35)
[2022-07-24] MEDS: ACETAMINOPHEN 500 MG TABLET 1000 MG PO (20:35)
[2022-07-24 20:37] LABS: Appearance Urine Clear (Clear); Bilirubin Urine Negative (Negative); Blood Urine Negative (Negative); Color Urine Yellow (Yellow); Glucose Urine 2+ (Negative); Ketones Urine Negative (Negative); Leukocyte Esterase Urine Negative (Negative); Nitrite Urine Negative (Negative); Protein Urine Negative (Negative); Specific Gravity Urine 1.015 (1.000-1.030); Urobilinogen Urine 0.2 (0.2-1.0)
[2022-07-24 20:42] LABS: PCR FLU A Negative PCR FLU A (Negative); PCR FLU B Negative PCR FLU B (Negative); PCR RSV Negative PCR RSV (Negative)
[2022-07-24 20:44] LABS: SARS PCR* Negative SARS-CoV-2 (Negative)
--- NOTE | 2022-07-24 20:45 | ED.NURSE ---
Lab at bedside for lab draw.
[2022-07-24 20:52] LABS: Albumin* 4.1 g/dL (3.3-5.0); Chloride* 103 mmol/L (96-114); Sodium* 136 mmol/L (135-149)
[2022-07-24 20:53] LABS: Potassium* 4.6 mmol/L (3.6-5.1)
[2022-07-24 20:55] LABS: Alanine Aminotransferase* 27 U/L (4-50); Alkaline Phosphatase* 89 U/L (40-150); Amylase* 46 U/L (18-89); Aspartate Amino Transferase* 32 U/L (12-35); Bilirubin Total* 0.5 mg/dL (0.1-1.5); Blood Urea Nitrogen* 42 mg/dL (7-30); Calcium* 9.1 mg/dL (8.4-10.6); Carbon Dioxide* 24 mmol/L (20-32); Creatinine* 1.3 mg/dL (0.5-1.5); Est. Creatinine Clearance* 51.25; Estimated Glomerular Filt Rate 62 ml/min; Glucose* 229 mg/dL (60-115); Total Protein* 7.6 g/dL (6.0-8.3)
[2022-07-24 21:00] LABS: ABG PCO2 43 mmHG (35-45); Base Excess ABG 1.5 mmol/L (-3.0-3.0); HCO3 ABG 27 mmol/L (21-28); Lactate* 1.5 mmol/L (0.5-1.9); Oxygen Saturation ABG 96 % (92-100); PO2 ABG 89.9 mmHG (80-105); TCO2 ABG 24 mmol/l (21-30)
[2022-07-24 21:04] LABS: D Dimer Quantitative* < 0.27 ug/ml (0.00-0.50)
[2022-07-24 21:07] LABS: Troponin I* 0.02 ng/mL (0.01-0.04)
--- NOTE | 2022-07-24 21:57 | CRLHL7_ITS ---
For Patients: As a result of the Century Cures Act, medical imaging exams and procedure reports are released immediately into your electronic medical record. You may view this report before your referring provider. If you have questions, please contact your health care provider. INDICATION: Fever TECHNIQUE: CT chest was acquired with 95 cc Isovue 370 IV contrast. COMPARISON: Chest radiograph from earlier today, chest CT July 09, 2018, right upper quadrant ultrasound July 09, 2018. FINDINGS: Cardiovascular structures: Cardiomegaly. Coronary artery calcifications. Thoracic aorta and main pulmonary artery are normal in caliber. Mediastinum and yulia: No mass or adenopathy. Lungs: Clear. Pleura and pericardium: No effusions. Chest wall and axilla: No mass or adenopathy. Upper abdomen: Status post cholecystectomy. Partially visualized 8.5 cm cyst in the expected location of the upper pole the right kidney. Bones: No significant findings. IMPRESSION: No evidence for pneumonia or pleural effusion. Cardiomegaly with coronary artery disease. Status post cholecystectomy. Greater than 8 cm cyst on the upper pole the right kidney. Please note that all CT scans at this facility use dose modulation, iterative reconstruction, and/or weight-based dosing when appropriate to reduce radiation dose to as low as reasonably achievable. Dictated by Angelita Bob MD @ 07/24/2022 10:38:26 PM (Electronically Signed)
--- NOTE | 2022-07-24 23:21 | PM.IMHP1 ---
Hospitalist- H&P: HPI History of Present Illness Date Seen: 07/25/22 Chief complaint: Fever,Shortness of Breath Narrative: Leonid Leahy is a 61 year old male who presented to the emergency room from his [place] [facility] for feeling poorly. He notes that symptoms started this morning; first felt ?shaky? than short of breath. He has had intermittent dry coughing. He has not felt febrile. He is a poor historian, but specifically denies any pain concerns. ER course and findings: - febrile, tachypneic, tachycardic on arrival; all improved with 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 of Tylenol. Low-dose supplemental oxygen provided given hypoxia - no acute findings on chest x-ray or chest CT - negative COVID, influenza, and RSV - white blood count of 6, BUN 42, creatinine 1.3 (both close to baseline per chart review), hemoglobin 12.9 which is slightly above outpatient baseline - cellulitis of abdominal wall noted, patient treated with Zosyn Given patient's severity of illness upon presentation in addition to hypoxia, admitted to the hospital for treatment of cellulitis. Patient's PCP is Rosalina Shirley PA-C at [facility]. He also follows with endocrinology and cardiology. Past history updated below. Review of Systems Narrative: Specifically denies any pain, notes that breathing seems better after Tylenol 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 PFSH PFS Medical History (Updated 07/25/22 @ 01:07 by Lorene Mccormack MD) CKD (chronic kidney disease) Coronary artery disease Epilepsy Gout Hypertension Hypertriglyceridemia Insulin dependent diabetes mellitus Major depressive disorder Obesity TASHI on CPAP Recurrent deep vein thrombosis (DVT) Type 2 diabetes mellitus Surgical History (Updated 07/24/22 @ 23:30 by Lorene Mccormack MD) History of cholecystectomy Social History (Updated 07/24/22 @ 23:29 by Lorene Mccormack MD) Narrative: Lives in [place] [facility] in [place], [place]. Sisters Brittany Suggs ([phone]) and Blanka Mcduffie ([phone]) listed as contacts and medical decision makers. Paperwork from [place] [facility] indicates Full Code status. Smoking Status: Never smoker Do you use any of these nicotine containing products: None Second hand tobacco smoke exposure: No How often do you have a drink containing alcohol: never How often do you have six or more drinks on one occasion: Never AUDIT-C Alcohol total score: 0 Non-prescribed substance use: denies use service: No Meds Home Medications and Allergies Home Medications Medication Instructions Recorded Confirmed Type amlodipine 10 mg tablet 10 mg PO DAILY 03/07/22 07/24/22 History apixaban 5 mg tablet (Eliquis) 5 mg PO BID 03/07/22 07/24/22 History aripiprazole 15 mg tablet 7.5 mg PO DAILY 03/07/22 07/24/22 History aspirin 81 mg tablet,delayed 81 mg PO DAILY 03/07/22 07/24/22 History release carbamazepine 200 mg tablet 200 mg PO BID 03/07/22 07/24/22 History chlorthalidone 25 mg tablet 25 mg PO DAILY 03/07/22 07/24/22 History ezetimibe 10 mg tablet 10 mg PO DAILY 03/07/22 07/24/22 History hydralazine 50 mg tablet 50 mg PO QID 03/07/22 07/24/22 History insulin aspart U-100 100 unit/mL 42 unit subcut TIDWM 03/07/22 07/24/22 History (3 mL) subcutaneous pen (Novolog FlexPen U-100 Insulin aspart) insulin aspart U-100 100 unit/mL 10 unit subcut QPM 03/07/22 07/24/22 History subcutaneous solution (Novolog U-100 Insulin aspart) insulin detemir U-100 100 unit/mL 80 unit subcut BID 03/07/22 07/24/22 History (3 mL) subcutaneous pen (Levemir FlexTouch U-100 Insulin) isosorbide mononitrate 30 mg 30 mg PO DAILY 03/07/22 07/24/22 History tablet,extended release 24 hr lisinopril 40 mg tablet 40 mg PO DAILY 03/07/22 07/24/22 History metoprolol succinate 200 mg 200 mg PO DAILY 03/07/22 07/24/22 History tablet,extended release 24 hr pantoprazole 40 mg tablet,delayed 40 mg PO DAILY 03/07/22 07/24/22 History release polyethylene glycol 3350 17 17 g PO DAILY 03/07/22 07/24/22 History gram/dose oral powder pravastatin 80 mg tablet 80 mg PO HS 03/07/22 07/24/22 History pregabalin 100 mg capsule 100 mg PO QAM 03/07/22 07/24/22 History pregabalin 150 mg capsule 150 mg PO HS 03/07/22 07/24/22 History torsemide 20 mg tablet 20 mg PO DAILY 03/07/22 07/24/22 History venlafaxine 75 mg capsule,extended 225 mg PO DAILY 03/07/22 07/24/22 History release 24 hr acetaminophen 500 mg tablet 500 mg PO Q6H 06/13/22 07/24/22 History albuterol sulfate 90 mcg/actuation 1 inh inhalation Q4H PRN 06/13/22 07/24/22 History aerosol inhaler bronchospasm aripiprazole 5 mg tablet mg 06/13/22 History carvedilol 25 mg tablet 50 mg PO Q12H 06/13/22 07/24/22 History diphenhydramine HCl 50 mg capsule 50 mg PO Q6H PRN itching 06/13/22 07/24/22 History (Banophen) icosapent ethyl 1 gram capsule 2 g PO BID 06/13/22 07/24/22 History (Vascepa) insulin regular hum U-500 conc 500 85 unit subcut TID 06/13/22 07/24/22 History unit/mL(3 mL) subcut pen (Humulin R U-500 (Conc) Insulin Kwikpen) ketoconazole 2 % shampoo 1 applic topical Q3D 06/13/22 07/24/22 History loperamide 2 mg capsule 2 mg PO Q6H PRN loose stool 06/13/22 07/24/22 History nystatin 100,000 unit/gram topical 1 applic topical BID PRN 06/13/22 07/24/22 History powder sennosides 8.6 mg tablet (senna) 8.6 mg PO DAILY 06/13/22 07/24/22 History Home Medication Comments: Patient is not on Metoprolol, he's on 50mg of Carvedilol BID (recently changed by Cardiology) Allergies Allergy/AdvReac Type Severity Reaction Status Date / Time lisinopril AdvReac Verified 07/25/22 00:21 metformin AdvReac Verified 07/24/22 19:43 Exam Narrative: Exam Narrative: GEN: Alert HEENT: Right eye ptosis, baseline (per patient) EOM are otherwise intact CV: RRR, No concerning murmurs, heart sounds distant R: LCTA bilaterally without concerning wheezing Abdomen: Protuberant. Confluent erythema over lower 3rd of abdomen is noted with thickened, hyperkeratotic skin. + warm. No induration or fluctuance. There is an approximate 1.5 cm lesion with a necrotic center, appears to be recently formed cyst. It is not indurated or fluctuant, is also nontender Ext: Wearing Primitivo hose bilateral lower extremities Neuro: No acute focal deficits Psych: Appropriate for chronic conditions Const: Vital Signs, click to edit/add: Vital Signs - 24 hr 07/24/22 19:44 07/24/22 21:14 07/24/22 19:55 Temperature 101.2 F H 101.2 F H Pulse Rate 106 H Pulse Rate [Right Pulse Oximeter] 105 H Respiratory Rate 34 H 34 H Blood Pressure Blood Pressure [Le ft Forearm] 158/61 H Pulse Oximetry 97 97 98 Oxygen Delivery Me thod Nasal Cannula Nasal Cannula Oxygen Flow Rate 2 2 07/24/22 20:00 07/24/22 20:15 07/24/22 20:30 Temperature Pulse Rate 105 H 104 H 105 H Pulse Rate [Right Pulse Oximeter] Respiratory Rate Blood Pressure Blood Pressure [Le ft Forearm] Pulse Oximetry 98 98 98 Oxygen Delivery Me thod Oxygen Flow Rate 07/24/22 20:45 07/24/22 21:00 07/24/22 21:43 Temperature Pulse Rate 102 H 103 H Pulse Rate [Right Pulse Oximeter] Respiratory Rate Blood Pressure 123/58 L Blood Pressure [Le ft Forearm] Pulse Oximetry 99 98 Oxygen Delivery Me thod Oxygen Flow Rate 07/24/22 21:46 07/24/22 22:02 07/24/22 22:27 Temperature Pulse Rate 91 Pulse Rate [Right Pulse Oximeter] Respiratory Rate Blood Pressure 114/63 104/47 L Blood Pressure [Le ft Forearm] Pulse Oximetry 99 Oxygen Delivery Me thod Oxygen Flow Rate 07/24/22 22:33 07/24/22 22:30 07/24/22 22:32 Temperature 100.0 F H Pulse Rate 90 89 Pulse Rate [Right Pulse Oximeter] Respiratory Rate Blood Pressure 122/66 Blood Pressure [Le ft Forearm] Pulse Oximetry 99 99 Oxygen Delivery Me thod Oxygen Flow Rate Hospitalist - H&P: Result Labs Labs: Short CBC 07/24/22 Range/Units 20:16 WBC 6.62 (4.50-11.00) K/uL Hgb 12.9 L (13.5-17.5) gm/dL Hct 38.3 (37.0-53.0) % Plt Count 140 (140-440) K/uL BMP 07/24/22 20:16 Sodium 136 Potassium 4.6 Chloride 103 Carbon Dioxide 24 BUN 42 H Creatinine 1.3 Glucose 229 H Calcium 9.1 Cardiac Enzymes 07/24/22 07/24/22 Range/Units 20:16 20:16 Troponin I 0.02 Cancelled (0.01-0.04) ng/mL Liver Function 07/24/22 Range/Units 20:16 Total Bilirubin 0.5 (0.1-1.5) mg/dL AST 32 (12-35) U/L ALT 27 (4-50) U/L Alkaline Phosphatase 89 (40-150) U/L Albumin 4.1 (3.3-5.0) g/dL Urine 07/24/22 Range/Units 20:01 Urine Color Yellow (Yellow) Urine Appearance Clear (Clear) Urine pH 5.0 (5.0-8.5) Ur Specific [place] 1.015 (1.000-1.030) Urine Protein Negative (Negative) Urine Glucose (UA) 2+ A (Negative) Assessment and Plan Assessment and plan (1) Abdominal wall cellulitis: Problem comment: - with fever - continue Zosyn as initiated in ED - high risk for complications given CAD and IDDM2 as comorbidities - outline erythema, follow closely Status: Acute (2) Tachypnea: Problem comment: - improved with fever resolution in ED - no evidence of acute respiratory process by exam or radiography Status: Acute (3) TASHI on CPAP: Status: Acute (4) Coronary artery disease: Problem comment: - STEMI in December 2019, treated at [facility] with stenting of RCA, followed next day by stenting of distal LAD and diagonal branch - continue home medications: Coreg, statin, Amlodipine, ASA, Chlorthalidone, Lisinopril, Torsemide, Isosorbide, Hydralazine, Ezetimibe, statin, Vascepa Status: Acute (5) Recurrent deep vein thrombosis (DVT): Problem comment: - anticoagulated on Eliquis Status: Acute (6) Insulin dependent diabetes mellitus: Problem comment: - continue home medications with SSI and accuchecks Status: Acute Plan - per above - Eliquis for ppx - attempted to call sister Brittany with update, no answer. Left message
[2022-07-24] MEDS: PIPERACILLIN/TAZOBACTAM 3.375 GM in 0.9 % SODIUM CHLORIDE Mini-bag 100 ML IVPB (23:35)
--- NOTE | 2022-07-24 23:35 | W.PC.EDHO ---
Primary Language: Preferred Language: Orientation Status: [] Alert & Oriented Transfers By: [] Assist of 2 COVID, FLU Negative. Lives at intermediate. Active Medications Discontinued Medications Generic Name Dose Route Start Last Admin Trade Name Rosio PRN Reason Stop Dose Admin Acetaminophen 1,000 mg 07/24/22 20:03 07/24/22 20:35 Acetaminophen 500 Mg Tablet PO 07/24/22 20:04 1,000 mg ONCE ONE Administration Sodium Chloride 1,000 mls @ 1,000 mls/hr 07/24/22 20:03 07/24/22 22:34 0.9 % Sodium Chloride 1000 Ml IV 07/24/22 21:02 Infused .Q1H SOILA Infusion Description of Symptoms ED Triage Present Problem Shorteness of Breath, Fever and Chills Description ED Triage Date of Onset of 07/24/22 Symptoms Triage Comment ED Triage Comment Pt aox4, ABCs intact. Patient arrives from intermediate for evaluation of SOB, fever, and chills that started tonight around 1700. Patient started on 3L of [place] O2 via EMS patient states that this improves his SOB. Oxygen Administration Pulse Oximetry 99 Pulse Oximetry 99 Pulse Oximetry 99 Pulse Oximetry 97 Pulse Oximetry 98 Pulse Oximetry 99 Pulse Oximetry 98 Pulse Oximetry 98 Pulse Oximetry 98 Pulse Oximetry 98 Pulse Oximetry 97 Oxygen Delivery Method Nasal Cannula Oxygen Delivery Method Nasal Cannula Oxygen Flow Rate 2 Oxygen Flow Rate 2 Cardiac Monitoring EKG Method 12 Lead EKG Method 12 Lead
[2022-07-25] VITALS (13 sets, daily range): BP systolic 100–158; BP diastolic 34–67; PULSE 79–105; RESP 12–34; TEMP 35.6–38.3; O2SAT 92–97; BMI 69.0
--- NOTE | 2022-07-25 | ED.NURSE ---
Patient report given to Shakir CHA on med surg. Patient will be going to room 255.
--- NOTE | 2022-07-25 00:16 | ED.NURSE ---
[facility] Updated that patient will be admitted to the hospital.
[2022-07-25] MEDS: ACETAMINOPHEN 500 MG TABLET PO ×6 (01:25→23:00)
[2022-07-25] MEDS: 0.9 % SODIUM CHLORIDE 250 ml IV (04:35)
[2022-07-25] MEDS: SODIUM CHLORIDE 0.9 % (FLUSH) 10 ML SYRINGE 5 ML IVF ×2 (04:36→23:03)
[2022-07-25] MEDS: PIPERACILLIN/TAZOBACTAM 3.375 GM in 0.9 % SODIUM CHLORIDE Mini-bag 100 ML IVPB ×4 (04:36→23:02)
--- NOTE | 2022-07-25 06:05 | PC.NURSE ---
Shift note: patient arrived at the unit at 0040 on transfer bed. On arrival pt was conscious, alert and oriented. Assessment completed. Pt had reddened abdominal folds, SOB and was maintained on 2L of oxygen. Pt is morbidly obese, no attempt to transfer made and has been in bed since admission. Denied pain and cough. Bladder scan at 0600 was 56, no straight cath done. Bp on admission was 102/48, Tab Carvedilol held. Charge nurse informed.
[2022-07-25 06:34] LABS: HCO3 VBG 28 mmol/L (21-28); PCO2 VBG 54 mmHG (40-50); PO2 VBG 25.9 mmHG (25-47); pH VBG 7.327 (7.32-7.43)
[2022-07-25 06:46] LABS: Basophils Absolute Auto 0.02 K/uL (0.00-0.30); Basophils Percent Auto 0.3 % (0.0-3.0); Eosinophils Absolute Auto 0.01 K/uL (0.00-0.50); Eosinophils Percent Auto 0.1 % (0.0-7.0); Hemoglobin* 11.6 gm/dL (13.5-17.5); Immature Granulocytes Abs Auto 0.02 K/uL (0.00-0.30); Immature Granulocytes Pct Auto 0.3 %; Lymphocytes Percent Auto 10.1 % (20-44); Mean Corpuscular HGB Conc 33 gm/dL (32-36); Mean Corpuscular Hemoglobin 29 pg (26-34); Mean Corpuscular Volume 88 fL (80-100); Monocytes Percent Auto 3.9 % (0.0-11.0); Neutrophils Percent Auto 85.3 % (42.0-72.0); Platelet Count* 143 K/uL (140-440); RDW Coefficient of Variation % 14.3 % (11.5-15.5); Red Blood Count 3.98 m/uL (4.30-5.90)
[2022-07-25 06:47] LABS: Slide Review Reflex No
[2022-07-25 06:55] LABS: Chloride* 104 mmol/L (96-114); Potassium* 4.8 mmol/L (3.6-5.1); Sodium* 137 mmol/L (135-149)
[2022-07-25 06:57] LABS: Creatinine* 1.7 mg/dL (0.5-1.5); Est. Creatinine Clearance* 39.19; Estimated Glomerular Filt Rate 45 ml/min
[2022-07-25 06:58] LABS: Blood Urea Nitrogen* 48 mg/dL (7-30); Calcium* 8.4 mg/dL (8.4-10.6); Carbon Dioxide* 27 mmol/L (20-32); Glucose* 121 mg/dL (60-115)
[2022-07-25 07:15] LABS: Procalcitonin* 4.24 ng/mL (<0.50)
[2022-07-25] MEDS: EZETIMIBE 10 MG TABLET PO (10:17)
[2022-07-25] MEDS: ISOSORBIDE MONONITRATE ER 30 MG TAB PO (10:18)
[2022-07-25] MEDS: CHLORTHALIDONE 25 MG TABLET PO (10:18)
[2022-07-25] MEDS: ASPIRIN 81 MG TABLET EC PO (10:19)
[2022-07-25] MEDS: APIXABAN 5 MG TABLET PO ×2 (10:19→23:00)
[2022-07-25] MEDS: PREGABALIN 100 MG CAPSULE PO (10:19)
[2022-07-25] MEDS: VENLAFAXINE ER 75 MG CAPSULE 225 MG PO (10:20)
[2022-07-25] MEDS: lisinopriL 20 MG TABLET 40 MG PO (10:21)
[2022-07-25] MEDS: HYDRALAZINE 25 MG TABLET 50 MG PO ×2 (10:21→23:02)
[2022-07-25] MEDS: OMEPRAZOLE 20 MG CAPSULE DR 40 MG PO (10:22)
[2022-07-25] MEDS: SENNOSIDES 1 TAB TABLET PO (10:22)
[2022-07-25] MEDS: carBAMazepine 200 MG TABLET PO ×2 (10:22→22:59)
[2022-07-25] MEDS: AMLODIPINE 10 MG TABLET PO ×2 (10:22)
[2022-07-25] MEDS: carvediloL 25 MG TABLET 50 MG PO ×2 (10:23→23:01)
[2022-07-25] MEDS: polyethylene glycoL 3350 17 GM PACK PO (10:24)
[2022-07-25] MEDS: NYSTATIN POWDER 1 APPLIC TOPICAL ×2 (10:25→23:04)
[2022-07-25] MEDS: ARIPiprazole 10 MG TABLET 7.5 MG PO (10:46)
--- NOTE | 2022-07-25 13:45 | PC.NURSE ---
Notified provider of BP of 100/46. Instructed nurse to hold hydralazine and parameters added to hydralazine to not give is SBP less than 120.
--- NOTE | 2022-07-25 14:40 | PM.IMPN1 ---
Progress Note: A&P Assessment and plan (1) Abdominal wall cellulitis: Problem details: - with fever - continue Zosyn as initiated in ED - high risk for complications given CAD and IDDM2 as comorbidities - outline erythema, follow closely Status: Acute Assessment and Plan: Added skin care including nystatin powder to skin folds. (2) Tachypnea: Problem details: - improved with fever resolution in ED - no evidence of acute respiratory process by exam or radiography Status: Acute (3) TASHI on CPAP: Status: Acute (4) Coronary artery disease: Problem details: - STEMI in December 2019, treated at [place] with stenting of RCA, followed next day by stenting of distal LAD and diagonal branch - continue home medications: Coreg, statin, Amlodipine, ASA, Chlorthalidone, Lisinopril, Torsemide, Isosorbide, Hydralazine, Ezetimibe, statin, Vascepa Status: Acute (5) Recurrent deep vein thrombosis (DVT): Problem details: - anticoagulated on Eliquis Status: Acute (6) Insulin dependent diabetes mellitus: Problem details: - continue home medications with SSI and accuchecks Status: Acute Plan 1. Reviewed with patient. 2. Answered his questions. 3. He requests to go home. I explained to him that it is too early for him to go home. It is possible if he does well overnight that it he might be able to safely return to his home tomorrow. 4. We attempted to call and discuss his situation with his sister and his legal guardian. Were unable to reach them. 5. Patient reluctantly agrees to above stated plans and recommendations. Time Spent With Patient Total time spent: 30 minutes Subjective Time Seen by Provider: 10:00 Date Seen: 07/25/22 Interval history: 61-year-old man with abdominal wall cellulitis. Had hypoxia on presentation. No obvious infiltrate on chest chest x-ray assessment or CT scan of chest. Likely related to underlying obstructive sleep apnea. He feels better. T-max this morning is 101? F still. He nevertheless he wants to go home. Exam Narrative: Exam Narrative: Appears comfortable no acute distress. Alert and oriented to self, place, in part to time and situation. Obvious has decreased ability to synthesize and integrate information. Cooperative and friendly. Lungs clear to auscultation Heart tones with regular rhythm. Abdomen with massive obesity. Skin under the right breast and in the right panniculus has obvious erythema, weeping, satellite lesions suggestive of yeast dermatitis. Const: Vital Signs, click to edit/add: Vital Signs - 24 hr 07/24/22 19:44 07/24/22 21:14 07/24/22 19:55 Temperature 101.2 F H 101.2 F H Pulse Rate 106 H Pulse Rate [Right Pulse Oximeter] 105 H Respiratory Rate 34 H 34 H Blood Pressure Blood Pressure [Le ft Arm] Blood Pressure [Le ft Forearm] 158/61 H Blood Pressure [Ri ght Arm] Pulse Oximetry 97 97 98 Oxygen Delivery Me thod Nasal Cannula Nasal Cannula Oxygen Flow Rate 2 2 07/24/22 20:00 07/24/22 20:15 07/24/22 20:30 Temperature Pulse Rate 105 H 104 H 105 H Pulse Rate [Right Pulse Oximeter] Respiratory Rate Blood Pressure Blood Pressure [Le ft Arm] Blood Pressure [Le ft Forearm] Blood Pressure [Ri ght Arm] Pulse Oximetry 98 98 98 Oxygen Delivery Me thod Oxygen Flow Rate 07/24/22 20:45 07/24/22 21:00 07/24/22 21:43 Temperature Pulse Rate 102 H 103 H Pulse Rate [Right Pulse Oximeter] Respiratory Rate Blood Pressure 123/58 L Blood Pressure [Le ft Arm] Blood Pressure [Le ft Forearm] Blood Pressure [Ri ght Arm] Pulse Oximetry 99 98 Oxygen Delivery Me thod Oxygen Flow Rate 07/24/22 21:46 07/24/22 22:02 07/24/22 22:27 Temperature Pulse Rate 91 Pulse Rate [Right Pulse Oximeter] Respiratory Rate Blood Pressure 114/63 104/47 L Blood Pressure [Le ft Arm] Blood Pressure [Le ft Forearm] Blood Pressure [Ri ght Arm] Pulse Oximetry 99 Oxygen Delivery Me thod Oxygen Flow Rate 07/24/22 22:33 07/24/22 22:30 07/24/22 22:32 Temperature 100.0 F H Pulse Rate 90 89 Pulse Rate [Right Pulse Oximeter] Respiratory Rate Blood Pressure 122/66 Blood Pressure [Le ft Arm] Blood Pressure [Le ft Forearm] Blood Pressure [Ri ght Arm] Pulse Oximetry 99 99 Oxygen Delivery Me thod Oxygen Flow Rate 07/24/22 22:33 07/24/22 22:45 07/24/22 22:46 Temperature Pulse Rate 90 89 90 Pulse Rate [Right Pulse Oximeter] Respiratory Rate Blood Pressure 112/54 L Blood Pressure [Le ft Arm] Blood Pressure [Le ft Forearm] Blood Pressure [Ri ght Arm] Pulse Oximetry 99 99 99 Oxygen Delivery Me thod Oxygen Flow Rate 07/24/22 23:00 07/24/22 23:02 07/24/22 23:15 Temperature Pulse Rate 89 89 89 Pulse Rate [Right Pulse Oximeter] Respiratory Rate Blood Pressure 125/37 L Blood Pressure [Le ft Arm] Blood Pressure [Le ft Forearm] Blood Pressure [Ri ght Arm] Pulse Oximetry 89 89 99 Oxygen Delivery Me thod Oxygen Flow Rate 07/24/22 23:18 07/24/22 23:30 03 23:32 Temperature Pulse Rate 88 88 89 Pulse Rate [Right Pulse Oximeter] Respiratory Rate Blood Pressure 124/88 135/22 L Blood Pressure [Le ft Arm] Blood Pressure [Le ft Forearm] Blood Pressure [Ri ght Arm] Pulse Oximetry 99 99 100 Oxygen Delivery Me thod Oxygen Flow Rate 07/24/22 23:33 07/24/22 23:45 07/24/22 23:47 Temperature Pulse Rate 87 88 Pulse Rate [Right Pulse Oximeter] Respiratory Rate Blood Pressure 136/54 L Blood Pressure [Le ft Arm] Blood Pressure [Le ft Forearm] Blood Pressure [Ri ght Arm] Pulse Oximetry 99 98 Oxygen Delivery Me thod Oxygen Flow Rate 07/25/22 00:02 07/25/22 00:17 07/25/22 00:29 Temperature 100.0 F H Pulse Rate Pulse Rate [Right Pulse Oximeter] 105 H Respiratory Rate 34 H Blood Pressure 147/42 H 139/55 L Blood Pressure [Le ft Arm] Blood Pressure [Le ft Forearm] 158/61 H Blood Pressure [Ri ght Arm] Pulse Oximetry Oxygen Delivery Me thod Oxygen Flow Rate 07/25/22 00:52 07/25/22 00:52 07/25/22 03:00 Temperature 97.6 F 98.1 F Pulse Rate Pulse Rate [Right Pulse Oximeter] 81 82 Respiratory Rate 20 20 20 Blood Pressure Blood Pressure [Le ft Arm] Blood Pressure [Le ft Forearm] Blood Pressure [Ri ght Arm] 102/48 L 131/34 L Pulse Oximetry 97 97 97 Oxygen Delivery Me thod Nasal Cannula Nasal Cannula Nasal Cannula Oxygen Flow Rate 2 2 2 07/25/22 07:00 07/25/22 07:00 07/25/22 07:00 Temperature 101 F H Pulse Rate Pulse Rate [Right Pulse Oximeter] 88 88 Respiratory Rate 20 20 20 Blood Pressure Blood Pressure [Le ft Arm] Blood Pressure [Le ft Forearm] Blood Pressure [Ri ght Arm] 143/67 H Pulse Oximetry 95 97 Oxygen Delivery Me thod Nasal Cannula Nasal Cannula Oxygen Flow Rate 2 2 07/25/22 07:30 07/25/22 10:30 07/25/22 11:00 Temperature 101 F H 100.1 F H 100.7 F H Pulse Rate Pulse Rate [Right Pulse Oximeter] 88 Respiratory Rate 24 Blood Pressure Blood Pressure [Le ft Arm] 115/46 L Blood Pressure [Le ft Forearm] Blood Pressure [Ri ght Arm] Pulse Oximetry 93 Oxygen Delivery Me thod Room Air Oxygen Flow Rate 07/25/22 13:35 Temperature 98.4 F Pulse Rate Pulse Rate [Right Pulse Oximeter] 84 Respiratory Rate 20 Blood Pressure Blood Pressure [Le ft Arm] Blood Pressure [Le ft Forearm] Blood Pressure [Ri ght Arm] 100/46 L Pulse Oximetry 92 Oxygen Delivery Me thod Room Air Oxygen Flow Rate Documenting provider has reviewed patient's vital signs: yes Labs Labs: Laboratory Results - last 24 hr 07/24/22 07/24/22 07/24/22 19:48 20:01 20:16 WBC 6.62 RBC 4.45 Hgb 12.9 L Hct 38.3 MCV 86 MCH 29 MCHC 34 RDW Coeff of Kaylen 13.7 Plt Count 140 Neut % (Auto) 85.9 H Lymph % (Auto) 8.6 L Roberts % (Auto) 4.5 Eos % (Auto) 0.5 Baso % (Auto) 0.2 Neut # (Auto) 5.70 Lymph # (Auto) 0.60 L Roberts # (Auto) 0.30 Eos # (Auto) 0.03 Baso # (Auto) 0.01 D-Dimer Quant (PE/DVT) ABG pH ABG pCO2 ABG pO2 ABG HCO3 ABG Total CO2 ABG O2 Saturation ABG Base Excess VBG pH VBG pCO2 VBG pO2 VBG HCO3 Sodium Potassium Chloride Carbon Dioxide BUN Creatinine Estimated Creat Clear Estimated GFR Glucose Lactate Calcium Total Bilirubin AST ALT Alkaline Phosphatase Troponin I Total Protein Albumin Amylase Procalcitonin Urine Color Yellow Urine Appearance Clear Urine pH 5.0 Ur Specific [place] 1.015 Urine Protein Negative Urine Glucose (UA) 2+ A Urine Ketones Negative Urine Blood Negative Urine Nitrite Negative Urine Bilirubin Negative Urine Urobilinogen 0.2 Ur Leukocyte Esterase Negative SARS-CoV-2 (PCR) Negative SARS-CoV-2 Influenza Type A (PCR) Negative PCR FLU A Influenza Type B (PCR) Negative PCR FLU B RSV (PCR) Negative PCR RSV 07/24/22 07/24/22 07/24/22 20:16 20:16 20:16 WBC RBC Hgb Hct MCV MCH MCHC RDW Coeff of Kaylen Plt Count Neut % (Auto) Lymph % (Auto) Roberts % (Auto) Eos % (Auto) Baso % (Auto) Neut # (Auto) Lymph # (Auto) Roberts # (Auto) Eos # (Auto) Baso # (Auto) D-Dimer Quant (PE/DVT) < 0.27 ABG pH 7.40 ABG pCO2 43 ABG pO2 89.9 ABG HCO3 27 ABG Total CO2 24 ABG O2 Saturation 96 ABG Base Excess 1.5 VBG pH VBG pCO2 VBG pO2 VBG HCO3 Sodium 136 Potassium 4.6 Chloride 103 Carbon Dioxide 24 BUN 42 H Creatinine 1.3 Estimated Creat Clear 51.25 Estimated GFR 62 Glucose 229 H Lactate 1.5 Calcium 9.1 Total Bilirubin 0.5 AST 32 ALT 27 Alkaline Phosphatase 89 Troponin I 0.02 Total Protein 7.6 Albumin 4.1 Amylase 46 Procalcitonin Urine Color Urine Appearance Urine pH Ur Specific [place] Urine Protein Urine Glucose (UA) Urine Ketones Urine Blood Urine Nitrite Urine Bilirubin Urine Urobilinogen Ur Leukocyte Esterase SARS-CoV-2 (PCR) Influenza Type A (PCR) Influenza Type B (PCR) RSV (PCR) 07/24/22 07/25/22 07/25/22 20:16 05:34 05:34 WBC 7.40 RBC 3.98 L Hgb 11.6 L Hct 35.0 L MCV 88 MCH 29 MCHC 33 RDW Coeff of Kaylen 14.3 Plt Count 143 Neut % (Auto) 85.3 H Lymph % (Auto) 10.1 L Roberts % (Auto) 3.9 Eos % (Auto) 0.1 Baso % (Auto) 0.3 Neut # (Auto) 6.30 Lymph # (Auto) 0.70 L Roberts # (Auto) 0.30 Eos # (Auto) 0.01 Baso # (Auto) 0.02 D-Dimer Quant (PE/DVT) ABG pH ABG pCO2 ABG pO2 ABG HCO3 ABG Total CO2 ABG O2 Saturation ABG Base Excess VBG pH VBG pCO2 VBG pO2 VBG HCO3 Sodium 137 Potassium 4.8 Chloride 104 Carbon Dioxide 27 BUN 48 H Creatinine 1.7 H Estimated Creat Clear 39.19 Estimated GFR 45 Glucose 121 H Lactate Calcium 8.4 Total Bilirubin AST ALT Alkaline Phosphatase Troponin I Cancelled Total Protein Albumin Amylase Procalcitonin 4.24 H Urine Color Urine Appearance Urine pH Ur Specific [place] Urine Protein Urine Glucose (UA) Urine Ketones Urine Blood Urine Nitrite Urine Bilirubin Urine Urobilinogen Ur Leukocyte Esterase SARS-CoV-2 (PCR) Influenza Type A (PCR) Influenza Type B (PCR) RSV (PCR) 07/25/22 05:34 WBC RBC Hgb Hct MCV MCH MCHC RDW Coeff of Kaylne Plt Count Neut % (Auto) Lymph % (Auto) Roberts % (Auto) Eos % (Auto) Baso % (Auto) Neut # (Auto) Lymph # (Auto) Roberts # (Auto) Eos # (Auto) Baso # (Auto) D-Dimer Quant (PE/DVT) ABG pH ABG pCO2 ABG pO2 ABG HCO3 ABG Total CO2 ABG O2 Saturation ABG Base Excess VBG pH 7.327 VBG pCO2 54 H VBG pO2 25.9 VBG HCO3 28 Sodium Potassium Chloride Carbon Dioxide BUN Creatinine Estimated Creat Clear Estimated GFR Glucose Lactate Calcium Total Bilirubin AST ALT Alkaline Phosphatase Troponin I Total Protein Albumin Amylase Procalcitonin Urine Color Urine Appearance Urine pH Ur Specific [place] Urine Protein Urine Glucose (UA) Urine Ketones Urine Blood Urine Nitrite Urine Bilirubin Urine Urobilinogen Ur Leukocyte Esterase SARS-CoV-2 (PCR) Influenza Type A (PCR) Influenza Type B (PCR) RSV (PCR)
--- NOTE | 2022-07-25 14:47 | PC.NURSE ---
This typewriter assembly and parts inspector spoke with STARLA Mckeon DON at patient's facility and updated her on patient status. Linda states she is unsure what the patient's home settings for his CPAP are. Linda also states that the patient's incontinence issue is becoming worse at their facility and they have noticed it more and more lately.
--- NOTE | 2022-07-25 19:01 | PC.NURSE ---
Patient slept most of day. Patient sat up in chair for meals. Patient ate 100% of meal. Patient 1300 and 1700 hydralazine held d/t BP not being within SBP parameters. Patient incontinent of urine most of day. Patient did ambulate with walker with CAPPING MACHINE OPERATOR to restroom and urinated in toilet without difficulty. Patient on room air most of day. Patient has no complaints of pain. Patient refused to wash face and perform oral hygiene today. Patient expresses [facility] with that being hopefully tomorrow. Patient education on infection and ABX therapy. Patient verbalized understanding but still requires reinforcement.
[2022-07-25] MEDS: PREGABALIN 50 MG CAPSULE 150 MG PO (22:59)
[2022-07-25] MEDS: PRAVASTATIN SODIUM 20 MG TABLET 80 MG PO (23:03)
[2022-07-26 05:00] VITALS: BP 114/56; PULSE 77; RESP 20; TEMP 37.1; O2SAT 95
[2022-07-26] MEDS: 0.9 % SODIUM CHLORIDE 250 ml IV (05:07)
[2022-07-26] MEDS: PIPERACILLIN/TAZOBACTAM 3.375 GM in 0.9 % SODIUM CHLORIDE Mini-bag 100 ML IVPB ×2 (05:07→12:18)
[2022-07-26] MEDS: ACETAMINOPHEN 500 MG TABLET PO ×3 (05:12→13:35)
--- NOTE | 2022-07-26 06:13 | PC.NURSE ---
END OF SHIFT NOTE: PT PLEASANT AND COOPERATIVE WITH CARES. DENIES CP, SOB, N/V. AMBULATES WITH WALKER AND SBA. HS VSS ON 2L NC TO MAINTAIN SPO2 >90%; AFEBRILE. HX OF TASHI, NO CPAP BROUGHT TO THE HOSPITAL. BED ALARM ON AND CALL LIGHT WITHIN PT?S REACH. PT WITH SOME URGE INCONTINENCE OF URINE. FOLDS OF ARMPITS, BREASTS, PANUS, GROIN ALL CLEANSED AND NYSTATIN POWDER APPLIED. WATER ENCOURAGED, PT REJECTED THE WATER AND REQUESTED MORE DIET COKE. ?
[2022-07-26 07:00] VITALS: BP 118/56; PULSE 75; RESP 12; TEMP 37.1; O2SAT 93
[2022-07-26] MEDS: PREGABALIN 100 MG CAPSULE PO (09:51)
[2022-07-26] MEDS: EZETIMIBE 10 MG TABLET PO (09:51)
[2022-07-26] MEDS: ISOSORBIDE MONONITRATE ER 30 MG TAB PO (09:51)
[2022-07-26] MEDS: polyethylene glycoL 3350 17 GM PACK PO (09:51)
[2022-07-26] MEDS: VENLAFAXINE ER 75 MG CAPSULE 225 MG PO (09:52)
[2022-07-26] MEDS: SENNOSIDES 1 TAB TABLET PO (09:52)
[2022-07-26] MEDS: carvediloL 25 MG TABLET PO (09:53)
[2022-07-26] MEDS: APIXABAN 5 MG TABLET PO (09:53)
[2022-07-26] MEDS: lisinopriL 20 MG TABLET PO (09:53)
[2022-07-26] MEDS: ASPIRIN 81 MG TABLET EC PO (09:53)
[2022-07-26] MEDS: NYSTATIN POWDER 1 APPLIC TOPICAL (09:54)
[2022-07-26] MEDS: ARIPiprazole 10 MG TABLET 7.5 MG PO (09:54)
[2022-07-26] MEDS: OMEPRAZOLE 20 MG CAPSULE DR 40 MG PO (09:59)
[2022-07-26] MEDS: carBAMazepine 200 MG TABLET PO (09:59)
[2022-07-26 11:00] VITALS: BP 114/51; PULSE 74; RESP 18; TEMP 36.7; O2SAT 93
[2022-07-26 12:54] LABS: Albumin* 3.6 g/dL (3.3-5.0); Chloride* 105 mmol/L (96-114); Potassium* 4.1 mmol/L (3.6-5.1); Sodium* 138 mmol/L (135-149)
[2022-07-26 12:57] LABS: Blood Urea Nitrogen* 51 mg/dL (7-30); Carbon Dioxide* 25 mmol/L (20-32); Est. Creatinine Clearance* 33.31; Estimated Glomerular Filt Rate 37 ml/min; Glucose* 235 mg/dL (60-115); Phosphorus* 4.4 mg/dL (2.5-4.5)
[2022-07-26 12:58] LABS: Calcium* 7.9 mg/dL (8.4-10.6)
[2022-07-26 13:17] LABS: C Reactive Protein* 23.2 mg/dL (0.5-1.0)
--- NOTE | 2022-07-26 14:00 | PC.NURSE ---
Patient vitally stable. all concerns addressed. patient discharged back to nursing care center. Patient PIV removed.
[2022-07-26 14:27] VITALS: BP 114/51; PULSE 74; RESP 18; TEMP 36.7
--- NOTE | 2022-07-29 16:01 | P.DS_ITS ---
DS: Providers Provider Time Seen by Provider: 08:00 Date Seen: 07/26/22 Date of admission: 07/24/22 23:49 Primary care physician: Not a Local Provider Admitting Clinician: Lorene Mccormack MD Consults: 07/24/22 23:48 Consult to Physical Therapy [CONS] Routine Comment: Reason(s) for PT Consult:: Evaluate and Treat Any Restrictions?:: No Restrictions Consult to Respiratory Therapy [CONS] Routine Comment: Reason(s) for RT Consult:: Consult 07/24/22 23:51 Consult to Occupational Therapy [CONS] Routine Comment: Reason(s) for OT Consult:: Evaluate and Treat Any Restrictions?:: No Restrictions 07/25/22 01:14 Consult to Occupational Therapy [CONS] Routine Comment: Reason(s) for OT Consult:: Evaluate and Treat Any Restrictions?:: No Restrictions Consult to Physical Therapy [CONS] Routine Comment: Reason(s) for PT Consult:: Evaluate and Treat Any Restrictions?:: No Restrictions Attending Physician on discharge: Jarad Arceo MD Date of Discharge: 07/26/22 DS: Diagnosis Discharge Diagnosis (1) Abdominal wall cellulitis: Status: Acute Problem details: - with fever - continue Zosyn as initiated in ED - high risk for complications given CAD and IDDM2 as comorbidities - outline erythema, follow closely (2) Candidal dermatitis: Status: Acute (3) Tachypnea: Status: Acute Problem details: - improved with fever resolution in ED - no evidence of acute respiratory process by exam or radiography (4) TASHI on CPAP: Status: Acute (5) Coronary artery disease: Status: Acute Problem details: - STEMI in December 2019, treated at [facility] with stenting of RCA, followed next day by stenting of distal LAD and diagonal branch - continue home medications: Coreg, statin, Amlodipine, ASA, Chlorthalidone, Lisinopril, Torsemide, Isosorbide, Hydralazine, Ezetimibe, statin, Vascepa (6) Insulin dependent diabetes mellitus: Status: Acute Problem details: - continue home medications with SSI and accuchecks (7) Recurrent deep vein thrombosis (DVT): Status: Acute Problem details: - anticoagulated on Eliquis (8) Obesity: Status: Acute Problem details: BMI 69 (9) Cyst of right kidney: Status: Acute Problem details: CT scan of chest 07/24/2022: 8 cm cyst upper pole right kidney, consider additional evaluation if warranted. DS: Summary Hospital Course Hospital Course: Leonid Leahy is a 61 year old male who [facility] for [facility].? He notes that symptoms started this morning; first felt ?shaky? than short of breath.? He has had intermittent dry coughing .? He has not felt febrile.? He is a poor historian, but specifically denies any pain concerns. ER course and findings: ?- febrile, tachypneic, tachycardic on arrival; all improved with 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 of Tylenol.? Low-dose supplemental oxygen provided given hypoxia ?- no acute findings on chest x-ray or chest CT ?- negative COVID, influenza, and RSV ?- white blood count of 6, BUN 42, creatinine 1.3 (both close to baseline per chart review), hemoglobin 12.9 which is slightly above outpatient baseline ?- cellulitis of abdominal wall noted, patient treated with Zosyn Given patient's severity of illness upon presentation in addition to hypoxia, admitted to the hospital for treatment of cellulitis. Patient's condition responded fairly rapidly to the antibiotics. We did add therapy for the panniculus candidiasis that he has under the left breast and in the left side of his abdomen. Condition eventually stabilized in to the point he was able to safely be discharged. Status at Discharge Overall status at discharge: patient is progressing back to baseline Time Spent with Patient Time attestation: Total time spent providing and/or coordinating discharge services: Time spent: Greater than 30 minutes Exam Narrative: Exam Narrative: Appears comfortable no acute distress.? Alert and oriented to self, place, in part to time and situation.? Obvious has decreased ability to synthesize and integrate information. Cooperative and friendly.? Lungs clear to auscultation Heart tones with regular rhythm.? Abdomen with massive obesity. Skin under the right breast and in the right panniculus has obvious erythema, weeping, satellite lesions suggestive of yeast dermatitis. Const: Documenting provider has reviewed patient's vital signs: yes DS: Data Data Completed and Pending Labs on day of discharge: Preliminary micro results at discharge 07/24/22 20:45 Blood Culture - Preliminary Blood NO GROWTH AFTER 96 HOURS 07/24/22 20:50 Blood Culture - Preliminary Blood NO GROWTH AFTER [address] scan - chest: Attestation: I have reviewed the pertinent imaging results. Radiologist's impression: IMPRESSION: No evidence for pneumonia or pleural effusion. Cardiomegaly with coronary artery disease. Status post cholecystectomy. Greater than 8 cm cyst on the upper pole the right kidney. Discharge Plan Discharge Disposition: [facility] Date of Admission: 07/24/22 23:49 Attending Provider on Discharge: Jarad Arceo Primary Care Provider: Provider,Not a Local Condition: Stable Anticipated Discharge Date/Time: 07/26/22 14:00 Discharge Medications: New carvedilol 25 mg Tablet 25 mg PO Q12H 30 Days Qty: 60 0RF lisinopril 20 mg Tablet 20 mg PO DAILY 30 Days Qty: 60 0RF amoxicillin-pot clavulanate 875-125 mg tablet 1 tab PO BID 7 Days Qty: 14 0RF Continued amlodipine 10 mg tablet 10 mg PO DAILY aripiprazole 15 mg tablet 7.5 mg PO DAILY Eliquis 5 mg tablet 5 mg PO BID aspirin 81 mg tablet,delayed release (DR/EC) 81 mg PO DAILY venlafaxine 75 mg capsule,extended release 24hr 225 mg PO DAILY torsemide 20 mg tablet 20 mg PO DAILY isosorbide mononitrate 30 mg tablet extended release 24 hr 30 mg PO DAILY chlorthalidone 25 mg tablet 25 mg PO DAILY carbamazepine 200 mg tablet 200 mg PO BID pravastatin 80 mg tablet 80 mg PO HS pantoprazole 40 mg tablet,delayed release (DR/EC) 40 mg PO DAILY hydralazine 50 mg tablet 50 mg PO QID Label Comments: 08,12,16,20 ezetimibe 10 mg tablet 10 mg PO DAILY pregabalin 100 mg capsule 100 mg PO QAM pregabalin 150 mg capsule 150 mg PO HS polyethylene glycol 3350 17 gram/dose powder 17 g PO DAILY Rx Instructions: AND TWICE DAILY NEEDED sennosides [senna] 8.6 mg tablet 8.6 mg PO DAILY ketoconazole 2 % shampoo 1 applic TOPICAL Q3D diphenhydramine HCl [Banophen] 50 mg capsule 50 mg PO Q6H PRN (Reason: itching) loperamide 2 mg capsule 2 mg PO Q6H PRN (Reason: loose stool) acetaminophen 500 mg tablet 500 mg PO Q6H nystatin 100,000 unit/gram powder 1 applic TOPICAL BID PRN albuterol sulfate 90 mcg/actuation HFA aerosol inhaler 1 inh INHALATION Q4H PRN (Reason: bronchospasm) icosapent ethyl [Vascepa] 1 gram capsule 2 g PO BID Humulin R U-500 (Conc) Kwikpen 500 unit/mL (3 mL) insulin pen 85 unit SUBCUT TID clotrimazole 1 % cream 1 applic topical BID Rx Instructions: GROIN,PERIAREA AND ABDOMIN fluconazole 150 mg tablet 150 mg PO TUFR@09 gatifloxacin 0.5 % drops 1 drp ophthalmic (eye) QID ketorolac 0.5 % drops 1 drp ophthalmic (eye) QID Rx Instructions: STOP DATE 08/11/22 prednisolone acetate 1 % drops,suspension 1 drp ophthalmic (eye) QID Rx Instructions: STOP DATE 08/12/22 ergocalciferol (vitamin D2) 1,250 mcg (50,000 unit) capsule 50,000 unit PO WE@09 Discontinued lisinopril 40 mg tablet 40 mg PO DAILY carvedilol 25 mg tablet 50 mg PO Q12H Discharge Orders: Discharge Order (Routine); Ordered 07/26/22 Ordered By: Jarad Arceo Activity Level: No Restrictions and Activity as Tolerated Discharge Diet: Diabetic Dysphagia Food: Level 7- Regular Follow Up Appointments: Provider,Not a Local [Primary Care Provider] - (Transferred to [facility] in [facility] 07/26/2022) Admit to: SNF Discharge Potential: Good Length of Stay: <30 days Can use facility standing orders?: Yes Code Status: Full Code Rehab Potential: Poor Oxygen Delivery Method: CPAP Orders are good >30 days: Yes Signature: Jarad Arceo
== END 2022-07-26 14:00 | DRG 603 ==
LOC: ED 23:02 → MEDSURG 07-25 00:10
PROVIDERS: Internal Medicine; Admitting Provider Family Medicine; Emergency Provider Internal Medicine; Visit Provider Family Medicine
DX: L03.311 Cellulitis of abdominal wall (principal); Z68.44 Body mass index [BMI] 60.0-69.9, adult; I82.409 Acute embolism and thrombosis of unspecified deep veins of unspecified lower extremity; E66.01 Morbid (severe) obesity due to excess calories; E11.9 Type 2 diabetes mellitus without complications; Z79.4 Long term (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 insulin; G47.33 Obstructive sleep apnea (adult) (pediatric); Z99.89 Dependence on other enabling machines and devices; I25.10 Atherosclerotic heart disease of native coronary artery without angina pectoris; B37.2 Candidiasis of skin and nail; N28.1 Cyst of kidney, acquired; M10.9 Gout, unspecified; F32.9 Major depressive disorder, single episode, unspecified; I12.9 Hypertensive chronic kidney disease with stage 1 through stage 4 chronic kidney disease, or unspecified chronic kidney disease; E11.22 Type 2 diabetes mellitus with diabetic chronic kidney disease; N18.9 Chronic kidney disease, unspecified; G40.909 Epilepsy, unspecified, not intractable, without status epilepticus; R06.82 Tachypnea, not elsewhere classified
CPT/HCPCS: 36415; 36600; 51798; 71045; 71260; 80048; 80053; 80069; 81003; 82150; 82803; 82962; 83036; 83605; 84145; 84484; 85025; 85379; 86140; 87040; 87502; 87634; 87635; 93005; 94761; 97110; 97116; 97161; 97165; 99283; 99285; A9270; J2543; J7030; J7050; Q9967

== ENCOUNTER 2022-07-26 13:48 | Outpatient (CLI) | payer MEDICARE, MEDICAID, SELFPAY | END 2022-07-26 13:49 | disposition home or self-care (01) | LOC: AMB 07-29 22:17 | PROVIDERS: Visit Provider Emergency Medicine Emergency Medical Services | DX: L03.319 Cellulitis of trunk, unspecified (principal) | CPT/HCPCS: A0425; A0428 ==

== ENCOUNTER 2022-09-13 23:00 | Outpatient (CLI) | payer MEDICARE, MEDICAID, SELFPAY | END 2022-09-13 23:01 | disposition home or self-care (01) | LOC: AMB 09-16 06:11 | PROVIDERS: Visit Provider Family Medicine | DX: E11.65 Type 2 diabetes mellitus with hyperglycemia (principal); E66.01 Morbid (severe) obesity due to excess calories | CPT/HCPCS: A0425; A0427 ==

== ENCOUNTER 2022-09-13 23:39 | Emergency (ER) | payer MEDICARE, MEDICAID, SELFPAY ==
[2022-09-13 23:51] VITALS: BP 153/54; PULSE 83; RESP 22; TEMP 36.2; O2SAT 97; BMI 62.9
[2022-09-14] MEDS: cefTRIAXone 1 GM in 0.9 % SODIUM CHLORIDE Mini-bag 100 ML IVPB (01:10)
[2022-09-14] MEDS: 0.9 % SODIUM CHLORIDE 1000 ml 1,000 ML IV (01:10)
[2022-09-14 01:53] VITALS: BP 130/61; PULSE 72; RESP 18; O2SAT 97
--- NOTE | 2022-09-14 01:53 | ED.NURSE ---
The lodges contacted per provider. DON will call back once available.
--- NOTE | 2022-09-14 02:25 | ED_ITS ---
HPI - General Adult General Chief complaint: Diabetic Related Problem Stated complaint: hyperglycemia Time Seen by Provider: 09/14/22 00:36 History of Present Illness HPI narrative: Patient resident in assisted living facility, [facility]. Staff have noticed elevated BPs and FSGs over the past few days. Patient is also concerned with skin rash in between pannus folds, bilaterally. 62-year-old man presenting to the emergency department with concern of elevated blood sugars. Has had also increasing pain in folds under his pannus and and left side groin and right side upper chest under skin folds. He notes in this latter area 3rd been some purulence of some sort. Review of records shows a history of abdominal wall cellulitis. Does have insulin-dependent diabetes and is taking very high doses of insulin t.i.d. denies a fever. No records to indicate that he has had a fever recently. No chest pain or new shortness of breath. Related Data Home Medications Medication Instructions Recorded Confirmed amlodipine 10 mg tablet 10 mg PO DAILY 03/07/22 07/24/22 apixaban 5 mg tablet (Eliquis) 5 mg PO BID 03/07/22 07/24/22 aripiprazole 15 mg tablet 7.5 mg PO DAILY 03/07/22 07/24/22 aspirin 81 mg tablet,delayed 81 mg PO DAILY 03/07/22 07/24/22 release carbamazepine 200 mg tablet 200 mg PO BID 03/07/22 07/24/22 chlorthalidone 25 mg tablet 25 mg PO DAILY 03/07/22 07/24/22 ezetimibe 10 mg tablet 10 mg PO DAILY 03/07/22 07/24/22 hydralazine 50 mg tablet 50 mg PO QID 03/07/22 07/24/22 isosorbide mononitrate 30 mg 30 mg PO DAILY 03/07/22 07/24/22 tablet,extended release 24 hr pantoprazole 40 mg tablet,delayed 40 mg PO DAILY 03/07/22 07/24/22 release polyethylene glycol 3350 17 17 g PO DAILY 03/07/22 07/25/22 gram/dose oral powder pravastatin 80 mg tablet 80 mg PO HS 03/07/22 07/24/22 pregabalin 100 mg capsule 100 mg PO QAM 03/07/22 07/24/22 pregabalin 150 mg capsule 150 mg PO HS 03/07/22 07/24/22 torsemide 20 mg tablet 20 mg PO DAILY 03/07/22 07/24/22 venlafaxine 75 mg capsule,extended 225 mg PO DAILY 03/07/22 07/24/22 release 24 hr acetaminophen 500 mg tablet 500 mg PO Q6H 06/13/22 07/24/22 albuterol sulfate 90 mcg/actuation 1 inh inhalation Q4H PRN 06/13/22 07/24/22 aerosol inhaler bronchospasm diphenhydramine HCl 50 mg capsule 50 mg PO Q6H PRN itching 06/13/22 07/24/22 (Banophen) icosapent ethyl 1 gram capsule 2 g PO BID 06/13/22 07/24/22 (Vascepa) insulin regular hum U-500 conc 500 85 unit subcut TID 06/13/22 07/24/22 unit/mL(3 mL) subcut pen (Humulin R U-500 (Conc) Insulin Kwikpen) ketoconazole 2 % shampoo 1 applic topical Q3D 06/13/22 07/24/22 loperamide 2 mg capsule 2 mg PO Q6H PRN loose stool 06/13/22 07/24/22 nystatin 100,000 unit/gram topical 1 applic topical BID PRN 06/13/22 07/24/22 powder sennosides 8.6 mg tablet (senna) 8.6 mg PO DAILY 06/13/22 07/24/22 clotrimazole 1 % topical cream 1 applic topical BID 07/25/22 07/25/22 ergocalciferol (vitamin D2) 1,250 50,000 unit PO WE@07/25/22 07/25/22 mcg (50,000 unit) capsule fluconazole 150 mg tablet 150 mg PO TUFR@07/25/22 07/25/22 gatifloxacin 0.5 % eye drops 1 drp ophthalmic (eye) QID 07/25/22 07/25/22 ketorolac 0.5 % eye drops 1 drp ophthalmic (eye) QID 07/25/22 07/25/22 prednisolone acetate 1 % eye 1 drp ophthalmic (eye) QID 07/25/22 07/25/22 drops,suspension Previous Rx's Medication Instructions Recorded amoxicillin 875 mg-potassium 1 tab PO BID 7 days #14 tabs 07/26/22 clavulanate 125 mg tablet carvedilol 25 mg tablet 25 mg PO Q12H 30 days #60 tabs 07/26/22 lisinopril 20 mg tablet 20 mg PO DAILY 30 days #60 tabs 07/26/22 cephalexin 500 mg capsule 500 mg PO TID 10 days #30 caps 09/14/22 hydrocortisone 2.5 % topical cream 1 applic topical BID PRN #30 grams 09/14/22 nystatin 100,000 unit/gram topical 1 applic topical BID #30 grams 09/14/22 powder Allergies Allergy/AdvReac Type Severity Reaction Status Date / Time lisinopril AdvReac Verified 07/25/22 00:21 metformin AdvReac Verified 07/24/22 19:43 Review of Systems Status of ROS: Reports: 6 or more systems reviewed and unremarkable except as noted in History and below [facility] Medical History CKD (chronic kidney disease) ?N18.9 - Chronic kidney disease, unspecified (ICD-10) Coronary artery disease ?I25.10 - Atherosclerotic heart disease of [place] coronary artery without angina pectoris (ICD-10) Epilepsy ?G40.909 - Epilepsy, unspecified, not intractable, without status epilepticus (ICD-10) Fever ?R50.9 - Fever, unspecified (ICD-10) Gout ?M10.9 - Gout, unspecified (ICD-10) Hypertension ?I10 - Essential (primary) hypertension (ICD-10) Hypertriglyceridemia ?E78.1 - Pure hyperglyceridemia (ICD-10) Insulin dependent diabetes mellitus Major depressive disorder ?F32.9 - Major depressive disorder, single episode, unspecified (ICD-10) Obesity ?E66.9 - Obesity, unspecified (ICD-10) TASHI on CPAP ?G47.33 - Obstructive sleep apnea (adult) (pediatric) (ICD-10) ?Z99.89 - Dependence on other enabling machines and devices (ICD-10) Recurrent deep vein thrombosis (DVT) ?I82.409 - Acute embolism and thrombosis of unspecified deep veins of unspecified lower extremity (ICD-10) Tachypnea ?R06.82 - Tachypnea, not elsewhere classified (ICD-10) Type 2 diabetes mellitus ?E11.9 - Type 2 diabetes mellitus without complications (ICD-10) Surgical History History of cholecystectomy ?Z90.49 - Acquired absence of other specified parts of digestive tract (ICD- 10) Social History Narrative: Lives in a long term in [place], [place]. Sisters Brittany Suggs ([phone]) and Blanka Mcduffie ([phone]) listed as contacts and medical decision makers. Paperwork from long term indicates Full Code status. Highest level of school completed/degree received: 12th grade, no diploma Smoking Status: Never smoker Do you use any of these nicotine containing products: None Second hand tobacco smoke exposure: No How often do you have a drink containing alcohol: never How often do you have six or more drinks on one occasion: Never AUDIT-C Alcohol total score: 0 Non-prescribed substance use: denies use Caffeine: No service: No Exam Narrative: Exam Narrative: Sleeping, snoring line of the room. Is pleasant alert easily. Morbidly obese. Urges distant but in a regular rate and rhythm. Appears to be breathing easily release at baseline. Oropharynx is moist. Moving all extremities without difficulty. Thickening of the skin in various locations consistent with large this of pannus. well perfused peripherally. Elevating pannus he is most tender in the left groin/intertriginous folds. There are inflammatory changes here of mild erythema. Generally moist. There is odor. Not brightly cellulitic nor is there significant calor. Similar but less so in the right groin/intertriginous area and then also under the main abdominal pannus. Lumbar more inflamed again under the right upper infra-axillary skin fold. More tender here. General I do not see satellite lesions it is more confluent the erythematous with exudative moisture. Const: Vital Signs, click to edit/add: Vital Signs - 24 hr 09/13/22 23:51 09/14/22 01:53 09/14/22 03:03 Temperature 97.1 F L Pulse Rate [Pulse Oximeter] 83 72 78 Respiratory Rate 22 18 18 Blood Pressure [Le ft Upper Arm] 153/54 H 130/61 124/53 L Pulse Oximetry 97 97 94 Oxygen Delivery Me thod Room Air Room Air Room Air Documenting provider has reviewed patient's vital signs: yes Course Vital Signs Vital signs: Initial Vital Signs Temperature 97.1 F L 09/13/22 23:51 Temperature Source Temporal Artery Scan 09/13/22 23:51 Pulse Rate 83 09/13/22 23:51 Respiratory Rate 22 09/13/22 23:51 Blood Pressure 153/54 H 09/13/22 23:51 Blood Pressure Mean 87 09/13/22 23:51 Pulse Oximetry 97 09/13/22 23:51 Oxygen Delivery Method Room Air 09/13/22 23:51 Vital Signs Temperature 97.1 F L 09/13/22 23:51 Pulse Rate 83 09/13/22 23:51 Respiratory Rate 22 09/13/22 23:51 Blood Pressure 153/54 H 09/13/22 23:51 Pulse Oximetry 97 09/13/22 23:51 Oxygen Delivery Method Room Air 09/13/22 23:51 Temperature 97.1 F L 09/13/22 23:51 Pulse Rate 78 09/14/22 03:03 Respiratory Rate 18 09/14/22 03:03 Blood Pressure 124/53 L 09/14/22 03:03 Pulse Oximetry 94 09/14/22 03:03 Oxygen Delivery Method Room Air 09/14/22 03:03 Medical Decision Making MDM Narrative Medical decision making narrative: I think the inflammation, evolving cellulitis I the pannus is likely the reason for higher blood sugars as reported. IV has been initiated. Add to that another L of fluids. Regardless of findings in labs will be treating for potential cellulitis as well as suspected fungal component. Really needs to be working and drying this area. Ordered for g of Rocephin. Does receive 10 units of regular insulin as well during time in the emergency department. Will be difficult to manage his blood sugar given already high insulin dosing. More important I think would be decreasing insulin resistance. I discussed with student ministries director regarding cares at his long term. Please see patient discharge plan. Discharge Plan Discharge Clinical Impression: Cellulitis, Dermatitis, Intertrigo Patient Disposition: Home w/ Parent or Adult Condition: Improved Instructions: Cellulitis (ED), Dermatitis (ED) Additional Instructions: You did receive Rocephin antibiotic today in the IV. As discussed, again is going to be important that you keep these skin fold areas dry. I would suggest placing towels and changing them multiple times throughout the day to keep the skin dry. For the areas that hurt we can use a steroid cream like hydrocortisone, but over everywhere that is irritated perhaps an anti fungal powder would be a good idea. You had nystatin in the past. I suspect that is this dermatitis/cellulitis that is increasing your blood sugars. Will need to keep a close eye on blood sugars and treat with appropriate sliding scale. Please call to primary care provider to set up repeat evaluation within the next week Return for fever, uncontrolled pain Prescriptions: New nystatin 100,000 unit/gram powder 1 applic topical BID Qty: 30 1RF hydrocortisone 2.5 % cream 1 applic topical BID PRNQty: 30 1RF cephalexin 500 mg capsule 500 mg PO TID 10 Days Qty: 30 0RF No Action amlodipine 10 mg tablet 10 mg PO DAILY aripiprazole 15 mg tablet 7.5 mg PO DAILY Eliquis 5 mg tablet 5 mg PO BID aspirin 81 mg tablet,delayed release (DR/EC) 81 mg PO DAILY venlafaxine 75 mg capsule,extended release 24hr 225 mg PO DAILY torsemide 20 mg tablet 20 mg PO DAILY isosorbide mononitrate 30 mg tablet extended release 24 hr 30 mg PO DAILY chlorthalidone 25 mg tablet 25 mg PO DAILY carbamazepine 200 mg tablet 200 mg PO BID pravastatin 80 mg tablet 80 mg PO HS pantoprazole 40 mg tablet,delayed release (DR/EC) 40 mg PO DAILY hydralazine 50 mg tablet 50 mg PO QID Patient Comments: 08,12,16,20 ezetimibe 10 mg tablet 10 mg PO DAILY pregabalin 100 mg capsule 100 mg PO QAM pregabalin 150 mg capsule 150 mg PO HS polyethylene glycol 3350 17 gram/dose powder 17 g PO DAILY Rx Instructions: AND TWICE DAILY NEEDED sennosides [senna] 8.6 mg tablet 8.6 mg PO DAILY ketoconazole 2 % shampoo 1 applic TOPICAL Q3D diphenhydramine HCl [Banophen] 50 mg capsule 50 mg PO Q6H PRN (Reason: itching) loperamide 2 mg capsule 2 mg PO Q6H PRN (Reason: loose stool) acetaminophen 500 mg tablet 500 mg PO Q6H nystatin 100,000 unit/gram powder 1 applic TOPICAL BID PRN albuterol sulfate 90 mcg/actuation HFA aerosol inhaler 1 inh INHALATION Q4H PRN (Reason: bronchospasm) icosapent ethyl [Vascepa] 1 gram capsule 2 g PO BID Humulin R U-500 (Conc) Kwikpen 500 unit/mL (3 mL) insulin pen 85 unit SUBCUT TID clotrimazole 1 % cream 1 applic topical BID Rx Instructions: GROIN,PERIAREA AND ABDOMIN fluconazole 150 mg tablet 150 mg PO TUFR@09 gatifloxacin 0.5 % drops 1 drp ophthalmic (eye) QID ketorolac 0.5 % drops 1 drp ophthalmic (eye) QID Rx Instructions: STOP DATE 08/11/22 prednisolone acetate 1 % drops,suspension 1 drp ophthalmic (eye) QID Rx Instructions: STOP DATE 08/12/22 ergocalciferol (vitamin D2) 1,250 mcg (50,000 unit) capsule 50,000 unit PO WE@09 carvedilol 25 mg Tablet 25 mg PO Q12H 30 Days Qty: 60 0RF lisinopril 20 mg Tablet 20 mg PO DAILY 30 Days Qty: 60 0RF amoxicillin-pot clavulanate 875-125 mg tablet 1 tab PO BID 7 Days Qty: 14 0RF Follow Up/Referrals: Provider,Not a Local [Primary Care Provider] - Stand Alone Forms: MyHealth Info Instructions
[2022-09-14 03:03] VITALS: BP 124/53; PULSE 78; RESP 18; O2SAT 94
--- NOTE | 2022-09-14 03:30 | ED.NURSE ---
Dianne, the DON from the [facility] called back and spoke with Dr. Avendaño. EMS contacted for transport back to the [facility].
--- NOTE | 2022-09-14 03:54 | ED.NURSE ---
EMS transported patient back to the [facility] at this time. Jyotsna from the [facility] contacted regarding patient to update them on patient's return.
== END 2022-09-14 03:57 | disposition home or self-care (01) ==
PROVIDERS: Emergency Provider Family Medicine
DX: L03.311 Cellulitis of abdominal wall (principal); L30.4 Erythema intertrigo; E11.65 Type 2 diabetes mellitus with hyperglycemia
CPT/HCPCS: 82962; 96365; 99284; J0696; J7030

== ENCOUNTER 2022-09-14 03:44 | Outpatient (CLI) | payer MEDICARE, MEDICAID, SELFPAY | END 2022-09-14 03:45 | disposition home or self-care (01) | LOC: AMB 09-16 06:23 | PROVIDERS: Visit Provider Family Medicine | DX: E11.65 Type 2 diabetes mellitus with hyperglycemia (principal) | CPT/HCPCS: A0425; A0428 ==

== ENCOUNTER 2022-09-23 18:16 | Outpatient (CLI) | payer MEDICARE, MEDICAID, SELFPAY | END 2022-09-23 18:17 | disposition home or self-care (01) | LOC: AMB 10-05 01:52 | PROVIDERS: Visit Provider Family Medicine | DX: R73.9 Hyperglycemia, unspecified (principal); K59.00 Constipation, unspecified | CPT/HCPCS: A0425; A0429 ==

== ENCOUNTER 2022-10-19 09:27 | Outpatient (CLI) | payer MEDICARE, MEDICAID, SELFPAY | END 2022-10-19 09:28 | disposition home or self-care (01) | LOC: AMB 10-21 08:01 | PROVIDERS: Visit Provider Family Medicine | DX: R07.89 Other chest pain (principal) | CPT/HCPCS: A0425; A0427 ==

== ENCOUNTER 2022-10-19 16:14 | Outpatient (CLI) | payer MEDICARE, MEDICAID, SELFPAY | END 2022-10-19 16:15 | disposition home or self-care (01) | LOC: AMB 10-21 08:22 | PROVIDERS: Visit Provider Family Medicine | DX: E11.65 Type 2 diabetes mellitus with hyperglycemia (principal) | CPT/HCPCS: A0425; A0428 ==

== ENCOUNTER 2022-11-09 22:49 | Emergency (ER) | payer MEDICARE, MEDICAID, SELFPAY ==
[2022-11-09 22:55] VITALS: BP 131/64; PULSE 68; RESP 18; TEMP 36.8; O2SAT 94; BMI 62.6
--- OUTSIDE RECORDS SUMMARY | 2022-11-09 22:57 | XMS_ITS | CCD ---
Author Name Akhil Guerrero MD Address [address] [place] [address] Phone Organization [facility] Phone Care Team Providers Care Hot Dog Vendor Name Role Phone Andressa Zheng MD Primary Care Provider Un available Andressa Zheng MD Chronic Care Management Unavailable Summary Purpose [place] for Curation Medicare CCDA File last 10 Insurance Providers Payer name Policy type / Coverage type Covered democrat ID Effective Begin Date Effective End Date Medicare [place] Medicare Part B [id number] Unknown Unknown Medicaid [place] Medicare Part B [id number] Unknown Unknown Family History Family History data not found Problems Condition Codes Effective Dates Condition St atus Diabetes Unknown 02/12/2020 Active Diabetes mellitus Type 2 Unknown 02/12/2020 Act annie Contact with and (suspected) exposure to other viral communicable diseases ICD-10: Z20.828 ICD-9: V01.79 02/12/2020 Active rn long term care (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 insulin ICD-10: Z79.4 02/11 Active Type 2 diabetes mellitus wit h hyperglycemia, with long-term current use of insulin ICD-10: E11.65 ICD-9: 250.00 02/12/2020 Active Medications Medication Codes Instructions Start Date Stop Date Status Fill Instructions Lyrica 50 mg capsule RxNorm: 000713 Take 1 Capsule(s) Oral QAM every morning 0 02/15/20 20 Inactive Lyrica 100 mg capsule RxNorm: 004642 Take 1 Capsule(s) Oral QHS every night at bedtime 0 02/15/20 20 Inactive Lyrica 100 mg capsule RxNorm: 476257 Take 1 Capsule(s) Oral QHS every night at bedtime 0 03/15/20 20 Active Lyrica 50 mg capsule RxNorm: 387889 Take 1 Capsule(s) Oral QAM every morning 0 03/15/20 20 Active Medication Administered No Medication Administered data Reason For Visit No Reason For Visit data Encounters Encounter Performer Location Codes Date () EST. PATIENT, LEVEL I w/ CS modifier Diagnosis: Contact with and (suspected) exposure to other viral communicable diseases[ICD10: Z20.828] Akhil Swenson CPT-4: 50716 02/04
--- OUTSIDE RECORDS SUMMARY | 2022-11-09 22:57 | XMS_ITS | CCD ---
Author Name Akhil Guerrero MD Address [address] [place] [address] Phone Organization [facility] Phone Care Team Providers Care Industrial Hygiene Engineer Name Role Phone Andressa Zheng MD Primary Care Provider Un available Andressa Zheng MD Chronic Care Management Unavailable Summary Purpose [place] for Curation Medicare CCDA File last 3 Insurance Providers Payer name Policy type / Coverage type Covered green party ID Effective Begin Date Effective End Date Medicare [place] Medicare Part B [id number] Unknown Unknown Medicaid [place] Medicare Part B [id number] Unknown Unknown Family History Family History data [...] 02/12/2020 Active Coronary artery disease invo lving [place] coronary artery of [place] heart, angina presence unspecified ICD-10: I25.10 ICD-9: 414.01 02/12/2020 Active Depression ICD-10: F32.9 ICD-9: 311 02/12/2020 Active Gout due to renal impairment ICD-10: M10 .30 ICD-9: 274.10 02/12/2020 Active Hyperlipidemia associated wi th type 2 diabetes mellitus ICD-10: E11.69 ICD-9: 250.80 02/12/2020 Active Learning disability ICD-10: F81.9 ICD-9: 315.2 02/12/2020 Active [facility] (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 insulin ICD-10: Z79.4 02/11 Active Lower extremity edema ICD-10: R60.0 ICD-9: 782.3 02/12/2020 Active Secondary hypertension ICD-10: I15.9 ICD-9: 405.99 02/12/2020 Active Seizure disorder ICD-10: G40.909 ICD-9: 345.90 02/12/2020 Active Type 2 diabetes mellitus wit h hyperglycemia, with long-term current use of insulin ICD-10: E11.65 ICD-9: 250.00 02/12/2020 Active Type 2 diabetes mellitus wit h diabetic polyneuropathy, with long-term current use of insulin ICD-10: E11.42 ICD-9: 250.60 02/12/2020 Active Vitamin D deficiency ICD-10: E55.9 ICD-9: 268.9 02/12/2020 Active Anemia in chronic kidney disease ICD-10: D63.1 020 Resolved Hyperlipidemia, unspecified ICD-10: E78.5 02/12/2020 Resolved Medications Medication Codes Instructions Start Date Stop Date Status Fill Instructions Zetia 10 mg tablet RxNorm: 532455 Take 1 Tablet(s) Oral QD 0 04/05/20 20 Active Zetia 10 mg tablet RxNorm: 118280 Take 1 Tablet(s) Oral QD 0 03/07/20 20 Inactive Lyrica 50 mg capsule RxNorm: 889726 Take 1 Capsule(s) Oral QAM every morning 0 02/15/20 20 Inactive Lyrica 100 mg capsule RxNorm: 632869 Take 1 Capsule(s) Oral QHS every night at bedtime 0 02/15/20 20 Inactive Lyrica 100 mg capsule RxNorm: 858164 Take 1 Capsule(s) Oral QHS every night at bedtime 0 03/15/20 20 Active Lyrica 50 mg capsule RxNorm: 837744 Take 1 Capsule(s) Oral QAM every morning 0 03/15/20 20 Active Medication Administered No Medication Administered data Reason For Visit No Reason For Visit data Encounters Encounter Performer Location Codes Date (34349) DOMICIL/R-HOME VISIT NEW PAT Diagnosis: Contact with and (suspected) exposure to other viral communicable diseases[ICD10: Z20.828] Diagnosis: ad terminal makeup operator (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 insulin[ICD10: Z79.4] Diagnosis: Type [...] Depression[ICD10: F32.9] Diagnosis: Coronary artery disease involving [place] coronary artery of [place] heart, angina presence unspecified[ICD10: I25.10] Diagnosis: Lower extremity edema[ICD10: R60.0] Diagnosis: Gout due to renal impairment[ICD10: M10.30] Diagnosis: Vitamin D deficiency[ICD10: E55.9] Sandra Genao Amy CPT-4: 73517 02/12/2020 ([id number]) [id number] EST. PATIENT, LEVEL I w/ CS modifier Diagnosis: Contact with and (suspected) exposure to other viral communicable diseases[ICD10: Z20.828] Akhil Swenson CPT-4: 34403 02/04 Plan of Care Planned Activity Notes Codes Status Date Patient Education: Patient Medication Summary Completed 02/12/2020 Patient Education: Alzheimer''s Disease Completed 02/12/2020 Patient Education: Influenza Vaccine Completed 02/12/2020 Patient Education: Dementia Complete d 02/12/2020 Instructions Comment Epilepsy Monitor. Diabetes Nursing to send over BG log.? Checking A1C Learning disability Continue to live in congregate setting with supports.? ad terminal makeup operator (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 insulin See E11.42 Chronic Kidney Disease Checking CBC Gout due to renal impairment Monitor for acute flare Depression No concerns voiced today. Continue current treatment regimen and monitor. Edema Recently improved. Monitor.? Vitamin D Deficiency Checking Vit D level.? Contact with and (suspected) exposure to other viral communicable diseases Results: Negative Ischemic Heart Disease Continue to follow with cardiology.? Hypertension Take BP daily? .
--- OUTSIDE RECORDS SUMMARY | 2022-11-09 23:01 | XMS_ITS | CCD ---
Author Name Akhil Guerrero MD Address [address] [facility] [facility] [address] [place] [address] Phone Organization [facility] Phone Care Team Providers Care Biological Engineer Name Role Phone Andressa Zheng MD Primary Care Provider Un available Andressa Zheng MD Chronic Care Management Unavailable Summary Purpose [place] for Curation Medicare CCDA File last 3 Insurance Providers Payer name Policy type / Coverage type Covered libertarian ID Effective Begin Date Effective End Date Medicare [place] Medicare Part B [id number] Unknown Unknown Medicaid [place] Medicare Part B [id number] Unknown Unknown Family History Family History data [...] 02/12/2020 Active Coronary artery disease invo lving [place] coronary artery of [place] heart, angina presence unspecified ICD-10: I25.10 ICD-9: 414.01 02/12/2020 Active Depression ICD-10: F32.9 ICD-9: 311 02/12/2020 Active Gout due to renal impairment ICD-10: M10 .30 ICD-9: 274.10 02/12/2020 Active Hyperlipidemia associated wi th type 2 diabetes mellitus ICD-10: E11.69 ICD-9: 250.80 02/12/2020 Active Learning disability ICD-10: F81.9 ICD-9: 315.2 02/12/2020 Active 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 (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 insulin ICD-10: Z79.4 02/11 [...] Instructions Nystop 100,000 unit/gram topical powder RxNorm: 996201 Apply to abd folds, under breasts and L side of groin Topical BID x 14 days, then BID PRN 0 021 Active dx: yeast dermatitis Lyrica 100 mg capsule RxNorm: 118941 Take 1 Capsule(s) Oral QHS every night at bedtime 0 021 Active Lyrica 50 mg capsule RxNorm: 069087 Take 1 Capsule(s) Oral QAM every morning 0 Active ketoconazole 2 % shampoo RxNorm: 475584 Apply Topical two times a week with showers 0 Active cholecalciferol (vitamin D3) 50 mcg (2,000 unit) tablet RxNorm: 301836 Take 1 Tablet(s) Oral QD 0 Active Zetia 10 mg tablet RxNorm: 413540 Take 1 Tablet(s) Oral QD 0 Inactive Zetia 10 mg tablet RxNorm: 206399 Take 1 Tablet(s) Oral QD 0 Inactive Lyrica 50 mg capsule RxNorm: 908896 Take 1 Capsule(s) Oral QAM every morning 0 Inactive Lyrica 100 mg capsule RxNorm: 003499 Take 1 Capsule(s) Oral QHS every night at bedtime 0 Inactive Lyrica 100 mg capsule RxNorm: 832402 Take 1 Capsule(s) Oral QHS every night at bedtime 0 Inactive Lyrica 50 mg capsule RxNorm: 539097 Take 1 Capsule(s) Oral QAM every morning 0 Inactive Medication Administered No Medication Administered data Procedures Procedure Codes Date SYS BP > OR = 140 CPT-4: G8753 03/11/2020 CUI BP LESS 90 CPT-4: G8754 03/11/2020 Vital Signs Date Vital 03/11/2020 Blood Pressure 1: 140/75 Code: 8480-6 Heart Rate 1: 72 bpm SpO2: 96% Temperature: 36.3 (C) / 97.3 (F) Reason For Visit No Reason For Visit data Encounters Encounter Performer Location Codes Date (09403) DOMICIL/R-HOME VISIT EST PAT Diagnosis: Type 2 diabetes mellitus with diabetic polyneuropathy, with long-term current use of insulin[ICD10: E11.42] Diagnosis: 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] Diagnosis: Candidiasis, intertrigo[ICD10: B37.2] Diagnosis: Seizure disorder[ICD10: G40.909] Sandra Delbert Contreras Erinn Swenson CPT-4: 04250 04/08/2020 ([id number]) DOMICIL/R-HOME VISIT EST PAT Diagnosis: Anemia due [...] G40.909] Diagnosis: Dandruff in adult[ICD10: L21.0] Sandra Aragon Chadwick Reyes CPT-4: 00423 03/11/2020 ([id number]) DOMICIL/R-HOME VISIT NEW PAT Diagnosis: Contact with and (suspected) exposure to other viral communicable diseases[ICD10: Z20.828] Diagnosis: 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 (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 insulin[ICD10: Z79.4] Diagnosis: Type [...] Depression[ICD10: F32.9] Diagnosis: Coronary artery disease involving [place] coronary artery of [place] heart, angina presence unspecified[ICD10: I25.10] Diagnosis: Lower extremity edema[ICD10: R60.0] Diagnosis: Gout due to renal impairment[ICD10: M10.30] Diagnosis: Vitamin D deficiency[ICD10: E55.9] Sandra Mandujano [facility] [place] [facility] CPT-4: 24115 02/12/2020 ([id number]) 29315 EST. PATIENT, LEVEL I w/ CS modifier Diagnosis: Contact with and (suspected) exposure to other viral communicable diseases[ICD10: Z20.828] Akhil Guerrero [facility] CPT-4: 98103 02/04 Plan of Care Planned Activity Notes Codes Status Date Patient Education: Patient Medication Summary Completed 04/08/2020 Patient Education: Influenza Vaccine Completed 04/08/2020 Patient Education: Patient Medication Summary Completed 03/11/2020 Patient Education: Influenza Vaccine Completed 03/11/2020 Patient Education: Patient Medication Summary Completed 02/12/2020 Patient Education: Alzheimer''s Disease Completed 02/12/2020 Patient Education: Influenza Vaccine Completed 02/12/2020 Patient Education: Dementia Complete d 02/12/2020 Instructions Comment Hyperhidrosis of palms Ordering Carpe. Otherwise patient to purchase out of pocket. Can try general antiperspirant.? Candidiasis, intertrigo Starting Nystatin.? Epilepsy No seizure activity reported this month. No concerns voiced today. Continue current treatment regimen and monitor. Diabetes Continue insulin orders from Endo-sugars have been better.? . Epilepsy No seizure activity reported this month. No concerns voiced today. Continue current treatment regimen and monitor. Diabetes GFR improved per records. Continue to monitor Q6m.? Continue Iron supplement Continue insulin changes per Cullet Crusher And Washer.? Continue Zetia along with Pravastatin.? Chronic Kidney Disease Continue Ferrous Sulfate Dermatitis Starting Ketoconazole Shampoo Vitamin D Deficiency Increasing Vit D level. . Epilepsy Monitor. Diabetes Nursing to send over BG log.? Checking A1C Learning disability Continue to live in congregate setting with supports.? senior living (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 insulin See E11.42 Chronic [...]
--- OUTSIDE RECORDS SUMMARY | 2022-11-09 23:04 | XMS_ITS | CCD ---
Author Name Akhil Guerrero MD Address [address] [facility] [address] [facility] [address] [place] [address] Phone Organization [facility] Phone Care Team Providers Care Environmental Remediation Consultant Name Role Phone Andressa Zheng MD Primary Care Provider Un available Andressa Zheng MD Chronic Care Management Unavailable Summary Purpose [place] for Curation Medicare CCDA File last 3 Insurance Providers Payer name Policy type / Coverage type Covered green party ID Effective Begin Date Effective End Date Medicare [place] Medicare Part B [id number] Unknown Unknown Medicaid [place] Medicare Part B [id number] Unknown Unknown Family History Family History data [...] 02/12/2020 Active Coronary artery disease invo lving [place] coronary artery of [place] heart, angina presence unspecified ICD-10: I25.10 ICD-9: 414.01 02/12/2020 Active Depression ICD-10: F32.9 ICD-9: 311 02/12/2020 Active Gout due to renal impairment ICD-10: M10 .30 ICD-9: 274.10 02/12/2020 Active Hyperlipidemia associated wi th type 2 diabetes mellitus ICD-10: E11.69 ICD-9: 250.80 02/12/2020 Active Learning disability ICD-10: F81.9 ICD-9: 315.2 02/12/2020 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 ICD-10: Z79.4 02/11 [...] Fill Instructions Lyrica 100 mg capsule RxNorm: 761617 Take 1 Capsule(s) Oral QHS every night at bedtime 0 021 Active Lyrica 50 mg capsule RxNorm: 991163 Take 1 Capsule(s) Oral QAM every morning 0 021 Active ketoconazole 2 % shampoo RxNorm: 381703 Apply Topical two times a week with showers 0 Active cholecalciferol (vitamin D3) 50 mcg (2,000 unit) tablet RxNorm: 216060 Take 1 Tablet(s) Oral QD 0 021 Active Zetia 10 mg tablet RxNorm: 491776 Take 1 Tablet(s) Oral QD 0 Active Zetia 10 mg tablet RxNorm: 430699 Take 1 Tablet(s) Oral QD 0 Inactive Lyrica 50 mg capsule RxNorm: 677493 Take 1 Capsule(s) Oral QAM every morning 0 Inactive Lyrica 100 mg capsule RxNorm: 380177 Take 1 Capsule(s) Oral QHS every night at bedtime 0 Inactive Lyrica 100 mg capsule RxNorm: 431558 Take 1 Capsule(s) Oral QHS every night at bedtime 0 Inactive Lyrica 50 mg capsule RxNorm: 852087 Take 1 Capsule(s) Oral QAM every morning [...] data Encounters Encounter Performer Location Codes Date (56543) DOMICIL/R-HOME VISIT EST PAT Diagnosis: Anemia due [...] G40.909] Diagnosis: Dandruff in adult[ICD10: L21.0] Sandra Go [facility] [place] CPT-4: 83549 03/11/2020 ([id number]) DOMICIL/R-HOME VISIT NEW PAT Diagnosis: Contact with and (suspected) exposure to other viral communicable diseases[ICD10: Z20.828] Diagnosis: lobsterman (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 insulin[ICD10: Z79.4] Diagnosis: Type [...] Depression[ICD10: F32.9] Diagnosis: Coronary artery disease involving [place] coronary artery of [place] heart, angina presence unspecified[ICD10: I25.10] Diagnosis: Lower extremity edema[ICD10: R60.0] Diagnosis: Gout due to renal impairment[ICD10: M10.30] Diagnosis: Vitamin D deficiency[ICD10: E55.9] Sandra Aragon [facility] [place] CPT-4: 65815 02/12/2020 ([id number]) 84043 EST. PATIENT, LEVEL I w/ CS modifier Diagnosis: Contact with and (suspected) exposure to other viral communicable diseases[ICD10: Z20.828] Akhil Swenson CPT-4: 68004 02/04 Plan of Care Planned Activity Notes Codes Status Date Patient Education: Patient Medication Summary Completed 03/11/2020 Patient Education: Influenza Vaccine Completed 03/11/2020 Patient Education: Patient Medication Summary Completed 02/12/2020 Patient Education: Alzheimer''s Disease Completed 02/12/2020 Patient Education: Influenza Vaccine Completed 02/12/2020 Patient Education: Dementia Complete d 02/12/2020 Instructions Comment Epilepsy No seizure activity reported this month. No concerns voiced today. Continue current treatment regimen and monitor. Diabetes GFR improved per records. Continue to monitor Q6m.? Continue Iron supplement Continue insulin changes per Door Captain.? Continue Zetia along with Pravastatin.? Chronic Kidney Disease Continue Ferrous Sulfate Dermatitis Starting Ketoconazole Shampoo Vitamin D Deficiency Increasing Vit D level. . Epilepsy Monitor. Diabetes Nursing to send over BG log.? Checking A1C Learning disability Continue to live in congregate setting with supports.? lobsterman (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 insulin See E11.42 Chronic [...]
--- OUTSIDE RECORDS SUMMARY | 2022-11-09 23:04 | XMS_ITS | CCD ---
Author Name Akhil Guerrero MD Address [address] [place] [address] [facility] Phone Care Team Providers Care Radiation Officer Name Role Phone Andressa Zheng MD Primary Care Provider Un available Andressa Zheng MD Chronic Care Management Unavailable Summary Purpose [place] for Curation - CCDA Last 10 Days Insurance Providers Payer name Policy type / Coverage type Covered democrat ID Effective Begin Date Effective End Date Medicare [place] Medicare Part B [id number] Unknown Unknown Medicaid [place] Medicare Part B [id number] Unknown Unknown Family History Family History data [...] 02/12/2020 Active Coronary artery disease invo lving [place] coronary artery of [place] heart, angina presence unspecified ICD-10: I25.10 ICD-9: 414.01 02/12/2020 Active Depression ICD-10: F32.9 ICD-9: 311 02/12/2020 Active Gout due to renal impairment ICD-10: M10 .30 ICD-9: 274.10 02/12/2020 Active Hyperlipidemia associated wi th type 2 diabetes mellitus ICD-10: E11.69 ICD-9: 250.80 02/12/2020 Active Learning disability ICD-10: F81.9 ICD-9: 315.2 02/12/2020 Active [facility] (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 insulin ICD-10: Z79.4 02/11 [...] 1 as directed QID and PRN 0 021 Active Blood Glucose Monitoring kit RxNorm: Use as directed QID and PRN 0 021 Active Blood Glucose Test strips RxNorm: Use 1 Test Strip QID at PRN 0 021 Active Blood Glucose Test strips RxNorm: Use 1 Test Strip QID at PRN 0 020 Inactive Lancets,Thin 28 gauge RxNorm: Use 1 as directed QID and PRN 0 12/09/2 020 Inactive Blood Glucose Monitoring kit RxNorm: Use as directed QID and PRN 0 Inactive Nystop 100,000 unit/gram topical powder RxNorm: 961932 Apply to abd folds, under breasts and L side of groin Topical BID x 14 days, then BID PRN 0 Active dx: yeast dermatitis Lyrica 100 mg capsule RxNorm: 452747 Take 1 Capsule(s) Oral QHS every night at bedtime 0 Active Lyrica 50 mg capsule RxNorm: 774283 Take 1 Capsule(s) Oral QAM every morning 0 Active ketoconazole 2 % shampoo RxNorm: 949399 Apply Topical two times a week with showers 0 Active cholecalciferol (vitamin D3) 50 mcg (2,000 unit) tablet RxNorm: 378801 Take 1 Tablet(s) Oral QD 0 Active Zetia 10 mg tablet RxNorm: 742231 Take 1 Tablet(s) Oral QD 0 Inactive Zetia 10 mg tablet RxNorm: 103229 Take 1 Tablet(s) Oral QD 0 Inactive Lyrica 50 mg capsule RxNorm: 638793 Take 1 Capsule(s) Oral QAM every morning 0 Inactive Lyrica 100 mg capsule RxNorm: 807917 Take 1 Capsule(s) Oral QHS every night at bedtime 0 Inactive Lyrica 100 mg capsule RxNorm: 844627 Take 1 Capsule(s) Oral QHS every night at bedtime 0 Inactive Lyrica 50 mg capsule RxNorm: 056479 Take 1 Capsule(s) Oral QAM every morning [...] data Encounters Encounter Performer Location Codes Date (67509) DOMICIL/R-HOME VISIT EST PAT Diagnosis: Type 2 diabetes mellitus with diabetic polyneuropathy, with long-term current use of insulin[ICD10: E11.42] Diagnosis: 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] Diagnosis: Candidiasis, intertrigo[ICD10: B37.2] Diagnosis: Seizure disorder[ICD10: G40.909] Sandra Yang [place] CPT-4: 77335 04/08/2020 ([id number]) DOMICIL/R-HOME VISIT EST PAT Diagnosis: Anemia due [...] adult[ICD10: L21.0] Sandra Aragon Chadwick Reyes CPT-4: 02876 03/11/2020 ([id number]) DOMICIL/R-HOME VISIT NEW PAT Diagnosis: Contact with and (suspected) exposure to other viral communicable diseases[ICD10: Z20.828] Diagnosis: exterminator termite (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 insulin[ICD10: Z79.4] Diagnosis: Type [...] Depression[ICD10: F32.9] Diagnosis: Coronary artery disease involving [place] coronary artery of [place] heart, angina presence unspecified[ICD10: I25.10] Diagnosis: Lower extremity edema[ICD10: R60.0] Diagnosis: Gout due to renal impairment[ICD10: M10.30] Diagnosis: Vitamin D deficiency[ICD10: E55.9] Sandra Genao Amy CPT-4: 24781 02/12/2020 [id number] 81069 EST. PATIENT, LEVEL I w/ CS modifier Diagnosis: Contact with and (suspected) exposure to other viral communicable diseases[ICD10: Z20.828] Akhil Henry [place] CPT-4: 70656 02/04 Plan of Care Planned Activity Notes [...] Continue Iron supplement Continue insulin changes per Reporting Analyst.? Continue Zetia along with Pravastatin.? Chronic Kidney Disease Continue Ferrous Sulfate Dermatitis Starting Ketoconazole Shampoo Vitamin D Deficiency Increasing Vit D level. . Epilepsy Monitor. Diabetes Nursing to send over BG log.? Checking A1C Learning disability Continue to live in congregate setting with supports.? exterminator termite (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 insulin See E11.42 Chronic [...]
--- OUTSIDE RECORDS SUMMARY | 2022-11-09 23:05 | XMS_ITS | CCD ---
Author Name Akhil Guerrero MD Address [address] [facility] [address] [place] [address] Phone Organization [facility] Phone Care Team Providers Care Driver Service Technician Name Role Phone Andressa Zheng MD Primary Care Provider Un available Unavailable Chronic Care Management Unavaila ble Summary Purpose [place] for Curation Medicare CCDA File last 30 Insurance Providers Payer name Policy type / Coverage type Covered republican ID Effective Begin Date Effective End Date Medicare [place] Medicare Part B [id number] Unknown Unknown Medicaid [place] Medicare Part B [id number] Unknown Unknown Family History Family History data not found Problems Condition Codes Effective Dates Condition St atus Contact with and (suspected) exposure to other viral communicable diseases ICD-10: Z20.828 ICD-9: V01.79 02/05/2020 Active Medication Administered No Medication Administered data Reason For Visit No Reason For Visit data Encounters Encounter Performer Location Codes EST. PATIENT, LEVEL I w/ CS modifier Diagnosis: Contact with and (suspected) exposure to other viral communicable diseases[ICD10: Z20.828] Akhil Swenson CPT-4: 54457 02/04
--- OUTSIDE RECORDS SUMMARY | 2022-11-09 23:05 | XMS_ITS | CCD ---
Author Name Akhil Guerrero MD Address [address] [place] [address] Phone Organization [facility] Phone Care Team Providers Care Fagoting Machine Operator Name Role Phone Andressa Zheng MD Primary Care Provider Un available Andressa Zheng MD Chronic Care Management Unavailable Summary Purpose [place] for Curation Medicare CCDA File last 3 Insurance Providers Payer name Policy type / Coverage type Covered green party ID Effective Begin Date Effective End Date Medicare [place] Medicare Part B [id number] Unknown Unknown Medicaid [place] Medicare Part B [id number] Unknown Unknown Family History Family History data [...] 02/12/2020 Active Coronary artery disease invo lving [place] coronary artery of [place] heart, angina presence unspecified ICD-10: I25.10 ICD-9: 414.01 02/12/2020 Active Depression ICD-10: F32.9 ICD-9: 311 02/12/2020 Active Gout due to renal impairment ICD-10: M10 .30 ICD-9: 274.10 02/12/2020 Active Hyperlipidemia associated wi th type 2 diabetes mellitus ICD-10: E11.69 ICD-9: 250.80 02/12/2020 Active Learning disability ICD-10: F81.9 ICD-9: 315.2 02/12/2020 Active buttermaker (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 insulin ICD-10: Z79.4 02/11 [...] Fill Instructions ketoconazole 2 % shampoo RxNorm: 911225 Apply Topical two times a week with showers 0 Active cholecalciferol (vitamin D3) 50 mcg (2,000 unit) tablet RxNorm: 025741 Take 1 Tablet(s) Oral QD 0 Active Zetia 10 mg tablet RxNorm: 821425 Take 1 Tablet(s) Oral QD 0 Active Zetia 10 mg tablet RxNorm: 428868 Take 1 Tablet(s) Oral QD 0 Inactive Lyrica 50 mg capsule RxNorm: 383086 Take 1 Capsule(s) Oral QAM every morning 0 Inactive Lyrica 100 mg capsule RxNorm: 507727 Take 1 Capsule(s) Oral QHS every night at bedtime 0 Inactive Lyrica 100 mg capsule RxNorm: 320491 Take 1 Capsule(s) Oral QHS every night at bedtime 0 Active Lyrica 50 mg capsule RxNorm: 543915 Take 1 Capsule(s) Oral QAM every morning 0 Active Medication Administered No Medication Administered data Reason For Visit No Reason For Visit data Encounters Encounter Performer Location Codes Date (90228) DOMICIL/R-HOME VISIT NEW PAT Diagnosis: Contact with and (suspected) exposure to other viral communicable diseases[ICD10: Z20.828] Diagnosis: snf (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 insulin[ICD10: Z79.4] Diagnosis: Type [...] Depression[ICD10: F32.9] Diagnosis: Coronary artery disease involving ute coronary artery of [place] heart, angina presence unspecified[ICD10: I25.10] Diagnosis: Lower extremity edema[ICD10: R60.0] Diagnosis: Gout due to renal impairment[ICD10: M10.30] Diagnosis: Vitamin D deficiency[ICD10: E55.9] Sandra Reyes CPT-4: 78454 02/12/2020 16211) 49724 EST. PATIENT, LEVEL I w/ CS modifier Diagnosis: Contact with and (suspected) exposure to other viral communicable diseases[ICD10: Z20.828] Akhil Elaine Swenson CPT-4: 74678 02/04 Plan of Care Planned Activity Notes Codes Status Date Patient Education: Patient Medication Summary Completed 02/12/2020 Patient Education: Alzheimer''s Disease Completed 02/12/2020 Patient Education: Influenza Vaccine Completed 02/12/2020 Patient Education: Dementia Complete d 02/12/2020 Instructions Comment Epilepsy Monitor. Diabetes Nursing to send over BG log.? Checking A1C Learning disability Continue to live in congregate setting with supports.? buttermaker (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 insulin See E11.42 Chronic [...]
--- OUTSIDE RECORDS SUMMARY | 2022-11-09 23:06 | XMS_ITS | CCD ---
Author Name Akhil Guerrero MD Address [address] [place] [address] Phone Organization [facility] Phone Care Team Providers Care Vp Human Resources Name Role Phone Andressa Zheng MD Primary Care Provider Un available Andressa Zheng MD Chronic Care Management Unavailable Summary Purpose [place] for Curation Medicare CCDA File last 10 Insurance Providers Payer name Policy type / Coverage type Covered republican ID Effective Begin Date Effective End Date Medicare [place] Medicare Part B [id number] Unknown Unknown Medicaid [place] Medicare Part B [id number] Unknown Unknown Family History Family History data [...] 02/12/2020 Active Coronary artery disease invo lving [place] coronary artery of [place] heart, angina presence unspecified ICD-10: I25.10 ICD-9: 414.01 02/12/2020 Active Depression ICD-10: F32.9 ICD-9: 311 02/12/2020 Active Gout due to renal impairment ICD-10: M10 .30 ICD-9: 274.10 02/12/2020 Active Hyperlipidemia associated wi th type 2 diabetes mellitus ICD-10: E11.69 ICD-9: 250.80 02/12/2020 Active Learning disability ICD-10: F81.9 ICD-9: 315.2 02/12/2020 Active alf (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 insulin ICD-10: Z79.4 02/11 [...] Fill Instructions Lyrica 50 mg capsule RxNorm: 064796 Take 1 Capsule(s) Oral QAM every morning 0 02/15/20 20 Inactive Lyrica 100 mg capsule RxNorm: 560776 Take 1 Capsule(s) Oral QHS every night at bedtime 0 02/15/20 20 Inactive Lyrica 100 mg capsule RxNorm: 347699 Take 1 Capsule(s) Oral QHS every night at bedtime 0 03/15/20 20 Active Lyrica 50 mg capsule RxNorm: 573520 Take 1 Capsule(s) Oral QAM every morning 0 03/15/20 20 Active Medication Administered No Medication Administered data Reason For Visit No Reason For Visit data Encounters Encounter Performer Location Codes Date EST. PATIENT, LEVEL I w/ CS modifier Diagnosis: Contact with and (suspected) exposure to other viral communicable diseases[ICD10: Z20.828] Akhil [place] CPT-4: 69838 02/04
--- OUTSIDE RECORDS SUMMARY | 2022-11-09 23:08 | XMS_ITS | CCD ---
Author Name Akhil Guerrero MD Address [address] [place] [address] Phone Organization [facility] Phone Care Team Providers Care Vocational Training Instructor Name Role Phone Rosalina Shirley PA-C Primary Care Provider Unavailabl e Rosalina Shirley PA-C Chronic Care Management Unavaila ble Summary Purpose DataExchange Insurance Providers Payer name Policy type / Coverage type Covered democrat ID Effective Begin Date Effective End Date Medicare [place] Medicare Part B [id number] Unknown Unknown Medicaid [place] Medicare Part B [id number] Unknown Unknown Family History Family History data [...] other viral communicable diseases[ICD10: Z20.828] Akhil Guerrero [facility] [address] [place] [address] CPT-4: 49912 02/05/2020 Plan of Care Planned Activity Notes Codes Status Date Referral: [facility] [place] WPtel: [address], [address] [id number] [place] Referral Records Received 09/21/2022 Referral: [facility] WPtel: [address] [id number] [place] Referral Completed 05/28/2021 Referral: General Cardiology Referral Complet ed 01/03/2021 Referral: General Psychologist Referral Close d Instructions Comment Date Leonid is a?? Male being seen living at [facility]. Initial BPS visit 01/2020. PMHx including DMII, CAD w/ 5 stents, Depression, Seizure Disorder and CKD stage 3. He moved into [facility] in 12/2019 but after a hospitalization 05/2021 he moved to the [facility] to have closer nursing attention.??Sister Jyotsna involved in his care cell# [phone]??Guardian: Don (rosalina met in person 09/01/21), now has Lexii (same group as don)Lab Schedule: * 10/06/2022
--- OUTSIDE RECORDS SUMMARY | 2022-11-09 23:08 | XMS_ITS | CCD ---
Author Name Sandra Mandujano CNP Address [address] [facility] [address] [place] [address] Phone Organization [facility] Phone Care Team Providers Care Asset Management Analyst Name Role Phone Tapan Shirley PA-C Primary Care Provider Unavailabl e Tapan Shirley PA-C Chronic Care Management Unavaila ble Summary Purpose DataExchange Insurance Providers Payer name Policy type / Coverage type Covered alliance party ID Effective Begin Date Effective End Date Medicare [place] Medicare Part B [id number] Unknown Unknown Medicaid [place] Medicare Part B [id number] Unknown Unknown Family History Family History data [...] 02/12/2020 Active Coronary artery disease invo lving [place] coronary artery of [place] heart, angina presence unspecified ICD-10: I25.10 ICD-9: 414.01 02/12/2020 Active Depression ICD-10: F32.9 ICD-9: 311 02/12/2020 Active Gout due to renal impairment ICD-10: M10 .30 ICD-9: 274.10 02/12/2020 Active Hyperlipidemia associated wi th type 2 diabetes mellitus ICD-10: E11.69 ICD-9: 250.80 02/12/2020 Active Learning disability ICD-10: F81.9 ICD-9: 315.2 02/12/2020 Active intermediate (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 insulin ICD-10: [...] Encounter Performer Location Location Address Codes Date (63735) DOMICIL/R-HOME VISIT NEW PAT Diagnosis: Contact with and (suspected) exposure to other viral communicable diseases[ICD10: Z20.828] Diagnosis: implementation specialist (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 insulin[ICD10: Z79.4] Diagnosis: Type [...] Depression[ICD10: F32.9] Diagnosis: Coronary artery disease involving [place] coronary artery of [place] heart, angina presence unspecified[ICD10: I25.10] Diagnosis: Lower extremity edema[ICD10: R60.0] Diagnosis: Gout due to renal impairment[ICD10: M10.30] Diagnosis: Vitamin D deficiency[ICD10: E55.9] Sandra Mandujano [facility] [address] [address] [place] [address] CPT-4: 59943 02/12/2020 Plan of Care Planned Activity Notes Codes Status Date Referral: [facility] WPtel: [address] [id number] [place] Referral Records Received 09/21/2022 Referral: [facility] WPtel: [address] [facility] [address] [id number] [place] Referral Completed 05/28/2021 Referral: General Cardiology Referral Complet ed 01/03/2021 Patient Education: Patient M edication Summary Completed 02/12/2020 Patient Education: Alzheimer''s Disease Completed 02/12/2020 Patient Education: Influenza Vaccine Completed 02/12/2020 Patient Education: Dementia Complete d 02/12/2020 Referral: General Psychologist Referral Close d Instructions Comment Date Leonid is a?? Male being seen living at [facility]. Initial BPS visit 01/2020. PMHx including DMII, CAD w/ 5 stents, Depression, Seizure Disorder and CKD stage 3. He moved into [facility] in 12/2019 but after a hospitalization 05/2021 he moved to the [facility] to have closer nursing attention.??Sister Jyotsna involved in his care cell# [phone]??Guardian: Don (tapan met in person 09/01/21), now has Lexii (same group as don)Lab Schedule: * 10/06/2022 Epilepsy Monitor. Diabetes Nursing to send over BG log.?? Checking A1C Learning disability Continue to live in congregate setting with supports.?? intermediate (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 insulin See E11.42 Chronic [...] follow with cardiology.?? Hypertension Take BP daily?? . 02/12/2020
--- OUTSIDE RECORDS SUMMARY | 2022-11-09 23:08 | XMS_ITS | CCD ---
Author Name Unknown Organization Unknown Care Team Providers Care Violin Teacher Name Role Phone Tapan Shirley PA-C Primary Care Provider Unavailabl e Tapan Shirley PA-C Chronic Care Management Unavaila ble Summary Purpose DataExchange Insurance Providers Payer name Policy type / Coverage type Covered constitution party ID Effective Begin Date Effective End Date Medicare [place] Medicare Part B [id number] Unknown Unknown Medicaid [place] Medicare Part B [id number] Unknown Unknown Family History Family History data not found Allergies, Adverse Reactions, Alerts Substance Reaction Codes Entered Date Inactivated Date Status LISINOPRIL RxNorm: 69317 02/12/2020 No Inactive Da te Active Metformin [...] 02/12/2020 Active Coronary artery disease invo lving [place] coronary artery of [place] heart, angina presence unspecified ICD-10: I25.10 ICD-9: 414.01 02/12/2020 Active Depression ICD-10: F32.9 ICD-9: 311 02/12/2020 Active Gout due to renal impairment ICD-10: M10 .30 ICD-9: 274.10 02/12/2020 Active Hyperlipidemia associated wi th type 2 diabetes mellitus ICD-10: E11.69 ICD-9: 250.80 02/12/2020 Active Learning disability ICD-10: F81.9 ICD-9: 315.2 02/12/2020 Active 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 ICD-10: Z79.4 02/11 [...] Fill Instructions Zetia 10 mg tablet RxNorm: 344550 Take 1 Tablet(s) Oral QD 0 09/11/19 21 Inactive Zetia 10 mg tablet RxNorm: 142227 Take 1 Tablet(s) Oral QD 0 03/07/20 20 Inactive Lyrica 50 mg capsule RxNorm: 779939 Take 1 Capsule(s) Oral QAM every morning 0 02/15/20 20 Inactive Lyrica 100 mg capsule RxNorm: 916221 Take 1 Capsule(s) Oral QHS every night at bedtime 0 02/15/20 20 Inactive Lyrica 100 mg capsule RxNorm: 665340 Take 1 Capsule(s) Oral QHS every night at bedtime 0 02/15/20 20 Inactive Lyrica 50 mg capsule RxNorm: 673926 Take 1 Capsule(s) Oral QAM every morning [...] Codes Status Date Referral: [facility] [place] WPtel: [address], [address] [id number] [place] Referral Records Received 09/21/2022 Referral: [facility]ology [facility] WPtel: [address] [facility] [address] [id number] [place] Referral Completed 05/28/2021 Referral: General Cardiology Referral Complet ed 01/03/2021 Referral: General Psychologist Referral Close d Instructions Comment Date Leonid is a?? Male being seen living at The [facility]. Initial BPS visit 01/2020. PMHx including DMII, CAD w/ 5 stents, Depression, Seizure Disorder and CKD stage 3. He moved into [facility] in 12/2019 but after a hospitalization 05/2021 he moved to the [facility] to have closer nursing attention.??Sister Jyotsna involved in his care cell# [phone]??Guardian: Don (tapan met in person 09/01/21), now has Lexii (same group as don)Lab Schedule: * 10/06/2022
--- OUTSIDE RECORDS SUMMARY | 2022-11-09 23:08 | XMS_ITS | CCD ---
Author Name Sandra Mandujano CNP Address [address] [facility] [address] [facility] [address] [place] [address] Phone Organization [facility] Phone Care Team Providers Care Fire Prevention Inspector Name Role Phone Tapan Shirley PA-C Primary Care Provider Unavailabl e Tapan Shirley PA-C Chronic Care Management Unavaila ble Summary Purpose DataExchange Insurance Providers Payer name Policy type / Coverage type Covered libertarian ID Effective Begin Date Effective End Date Medicare [place] Medicare Part B [id number] Unknown Unknown Medicaid [place] Medicare Part B [id number] Unknown Unknown Family History Family History data not found Allergies, Adverse Reactions, Alerts Substance Reaction Codes Entered Date Inactivated Date Status LISINOPRIL RxNorm: 50783 02/12/2020 No Inactive Da te Active Metformin [...] 02/12/2020 Active Coronary artery disease invo lving [place] coronary artery of [place] heart, angina presence unspecified ICD-10: I25.10 ICD-9: 414.01 02/12/2020 Active Depression ICD-10: F32.9 ICD-9: 311 02/12/2020 Active Gout due to renal impairment ICD-10: M10 .30 ICD-9: 274.10 02/12/2020 Active Hyperlipidemia associated wi th type 2 diabetes mellitus ICD-10: E11.69 ICD-9: 250.80 02/12/2020 Active Learning disability ICD-10: F81.9 ICD-9: 315.2 02/12/2020 Active long term (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 insulin ICD-10: Z79.4 02/11 [...] Fill Instructions ketoconazole 2 % shampoo RxNorm: 121982 Apply Topical two times a week with showers 0 Inactive cholecalciferol (vitamin D3) 50 mcg (2,000 unit) tablet RxNorm: 275176 Take 1 Tablet(s) Oral QD 0 Inactive Zetia 10 mg tablet RxNorm: 707110 Take 1 Tablet(s) Oral QD 0 021 Inactive Zetia 10 mg tablet RxNorm: 556716 Take 1 Tablet(s) Oral QD 0 Inactive Lyrica 50 mg capsule RxNorm: 147031 Take 1 Capsule(s) Oral QAM every morning 0 Inactive Lyrica 100 mg capsule RxNorm: 032800 Take 1 Capsule(s) Oral QHS every night at bedtime 0 Inactive Lyrica 100 mg capsule RxNorm: 360551 Take 1 Capsule(s) Oral QHS every night at bedtime 0 Inactive Lyrica 50 mg capsule RxNorm: 692118 Take 1 Capsule(s) Oral QAM every morning [...] Encounter Performer Location Location Address Codes Date (97306) DOMICIL/R-HOME VISIT EST PAT Diagnosis: Anemia due [...] Dandruff in adult[ICD10: L21.0] Sandra Mandujano [facility] [place] [facility] [address] [address] CPT-4: 74116 03/11/2020 Plan of Care Planned Activity Notes Codes Status Date Referral: [facility] [place] WPtel: [address], [address] [id number] [place] Referral Records Received 09/21/2022 Referral: Endocrinology [facility] of [facility] WPtel: [address] [id number] [place] Referral Completed 05/28/2021 Referral: General Cardiology Referral Complet ed 01/03/2021 Patient Education: Patient M edication Summary Completed 03/11/2020 Patient Education: Influenza Vaccine Completed 03/11/2020 Referral: General Psychologist Referral Close d Instructions Comment Date Leonid is a?? Male being seen living at [facility]. Initial BPS visit 01/2020. PMHx including DMII, CAD w/ 5 stents, Depression, Seizure Disorder and CKD stage 3. He moved into [facility] in 12/2019 but after a hospitalization 05/2021 he moved to the [facility] to have closer nursing attention.??Sister Jyotsna involved in his care cell# [phone]??Guardian: Don (tapan met in person 09/01/21), now has Lexii (same group as don)Lab Schedule: * 10/06/2022 Epilepsy No seizure activity reported this month. No concerns voiced today. Continue current treatment regimen and monitor. Diabetes GFR improved per records. Continue to monitor Q6m.?? Continue Iron supplement Continue insulin changes per Dry Pan Operator.?? Continue Zetia along with Pravastatin.?? Chronic Kidney Disease Continue Ferrous Sulfate Dermatitis Starting Ketoconazole Shampoo Vitamin D Deficiency Increasing Vit D level. . 03/11/2020
--- OUTSIDE RECORDS SUMMARY | 2022-11-09 23:08 | XMS_ITS | CCD ---
Author Name Unknown Organization Unknown Care Team Providers Care Front End Developer Designer Name Role Phone Tapan Shirley PA-C Primary Care Provider Unavailabl e Tapan Shirley PA-C Chronic Care Management Unavaila ble Summary Purpose DataExchange Insurance Providers Payer name Policy type / Coverage type Covered green party ID Effective Begin Date Effective End Date Medicare [place] Medicare Part B [id number] Unknown Unknown Medicaid [place] Medicare Part B [id number] Unknown Unknown Family History Family History data [...] 02/12/2020 Active Coronary artery disease invo lving [place] coronary artery of [place] heart, angina presence unspecified ICD-10: I25.10 ICD-9: 414.01 02/12/2020 Active Depression ICD-10: F32.9 ICD-9: 311 02/12/2020 Active Gout due to renal impairment ICD-10: M10 .30 ICD-9: 274.10 02/12/2020 Active Hyperlipidemia associated wi th type 2 diabetes mellitus ICD-10: E11.69 ICD-9: 250.80 02/12/2020 Active Learning disability ICD-10: F81.9 ICD-9: 315.2 02/12/2020 Active snf (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 insulin ICD-10: Z79.4 02/11 [...] Fill Instructions Lyrica 50 mg capsule RxNorm: 713362 Take 1 Capsule(s) Oral QAM every morning 0 02/15/20 20 Inactive Lyrica 100 mg capsule RxNorm: 227590 Take 1 Capsule(s) Oral QHS every night at bedtime 0 02/15/20 20 Inactive Lyrica 100 mg capsule RxNorm: 815559 Take 1 Capsule(s) Oral QHS every night at bedtime 0 02/15/20 20 Inactive Lyrica 50 mg capsule RxNorm: 369469 Take 1 Capsule(s) Oral QAM every morning [...] Status Date Referral: [facility] WPtel: [address], [address] [id number] Referral Records Received 09/21/2022 Referral: Endocrinology [facility] of [facility] WPtel: [address] [id number] [place] Referral Completed 05/28/2021 Referral: General Cardiology Referral Complet ed 01/03/2021 Referral: General Psychologist Referral Close d Instructions Comment Date Leonid is a?? Male being seen living at [facility]. Initial BPS visit 01/2020. PMHx including DMII, CAD w/ 5 stents, Depression, Seizure Disorder and CKD stage 3. He moved into The [facility] in 12/2019 but after a hospitalization 05/2021 he moved to the [facility] to have closer nursing attention.??Sister Jyotsna involved in his care cell# [phone]??Guardian: Don (tapan met in person 09/01/21), now has Lexii (same group as don)Lab Schedule: * 10/06/2022
--- OUTSIDE RECORDS SUMMARY | 2022-11-09 23:09 | XMS_ITS | CCD ---
Author Name Sandra Mandujano CNP Address [address] [facility] [address] [place] [address] Phone Organization [facility] Phone Care Team Providers Care Binder Technician Name Role Phone Tapan Shirley PA-C Primary Care Provider Unavailabl e Tapan Shirley PA-C Chronic Care Management Unavaila ble Summary Purpose DataExchange Insurance Providers Payer name Policy type / Coverage type Covered alliance party ID Effective Begin Date Effective End Date Medicare [place] Medicare Part B [id number] Unknown Unknown Medicaid [place] Medicare Part B [id number] Unknown Unknown Family History Family History data not found Allergies, Adverse Reactions, Alerts Substance Reaction Codes Entered Date Inactivated Date Status LISINOPRIL RxNorm: 40190 02/12/2020 No Inactive Da te Active Metformin [...] 02/12/2020 Active Coronary artery disease invo lving [place] coronary artery of [place] heart, angina presence unspecified ICD-10: I25.10 ICD-9: 414.01 02/12/2020 Active Depression ICD-10: F32.9 ICD-9: 311 02/12/2020 Active Gout due to renal impairment ICD-10: M10 .30 ICD-9: 274.10 02/12/2020 Active Hyperlipidemia associated wi th type 2 diabetes mellitus ICD-10: E11.69 ICD-9: 250.80 02/12/2020 Active Learning disability ICD-10: F81.9 ICD-9: 315.2 02/12/2020 Active manager intermediate (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 insulin ICD-10: Z79.4 [...] Instructions Nystop 100,000 unit/gram topical powder RxNorm: 634328 Apply to abd folds, under breasts and L side of groin Topical BID x 14 days, then BID PRN 0 021 Inactive dx: yeast dermatitis Lyrica 100 mg capsule RxNorm: 601592 Take 1 Capsule(s) Oral QHS every night at bedtime 0 020 Inactive Lyrica 50 mg capsule RxNorm: 860258 Take 1 Capsule(s) Oral QAM every morning 0 020 Inactive ketoconazole 2 % shampoo RxNorm: 301976 Apply Topical two times a week with showers 0 Inactive cholecalciferol (vitamin D3) 50 mcg (2,000 unit) tablet RxNorm: 041655 Take 1 Tablet(s) Oral QD 0 Inactive Zetia 10 mg tablet RxNorm: 210682 Take 1 Tablet(s) Oral QD 0 021 Inactive Zetia 10 mg tablet RxNorm: 677334 Take 1 Tablet(s) Oral QD 0 Inactive Lyrica 50 mg capsule RxNorm: 991570 Take 1 Capsule(s) Oral QAM every morning 0 Inactive Lyrica 100 mg capsule RxNorm: 068956 Take 1 Capsule(s) Oral QHS every night at bedtime 0 Inactive Lyrica 100 mg capsule RxNorm: 260943 Take 1 Capsule(s) Oral QHS every night at bedtime 0 Inactive Lyrica 50 mg capsule RxNorm: 150188 Take 1 Capsule(s) Oral QAM every morning [...] Encounter Performer Location Location Address Codes Date ([address]059) DOMICIL/R-HOME VISIT EST PAT Diagnosis: Type 2 diabetes mellitus with diabetic polyneuropathy, with long-term current use of insulin[ICD10: E11.42] Diagnosis: 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, [address] [id number] [place] Referral Records Received 09/21/2022 Referral: [facility] WPtel: [address] [id number] [place] Referral Completed 05/28/2021 Referral: General Cardiology Referral Complet ed 01/03/2021 Patient Education: Patient M edication Summary Completed 04/08/2020 Patient Education: Influenza Vaccine Completed 04/08/2020 Referral: General Psychologist Referral Close d Instructions Comment Date Leonid is a?? Male being seen living at [facility]. Initial BPS visit 01/2020. PMHx including DMII, CAD w/ 5 stents, Depression, Seizure Disorder and CKD stage 3. He moved into [facility] in 12/2019 but after a hospitalization 05/2021 he moved to the [facility] to have closer nursing attention.??Sister Jyotsna involved in his care cell# [phone]??Guardian: Don (tapan met in person 09/01/21), now has Lexii (same group as don)Lab Schedule: * 10/06/2022 Hyperhidrosis of palms Ordering Carpe. Otherwise patient to purchase out of pocket. Can try general antiperspirant.?? Candidiasis, intertrigo Starting Nystatin.?? Epilepsy No seizure activity reported this month. No concerns voiced today. Continue current treatment regimen and monitor. Diabetes Continue insulin orders from Endo-sugars have been better.?? . 04/08/2020
--- OUTSIDE RECORDS SUMMARY | 2022-11-09 23:09 | XMS_ITS | CCD ---
Author Name Unknown Organization Unknown Care Team Providers Care Glass Edger Name Role Phone Tapan Shirley PA-C Primary Care Provider Unavailabl e Tapan Shirley PA-C Chronic Care Management Unavaila ble Summary Purpose DataExchange Insurance Providers Payer name Policy type / Coverage type Covered constitution party ID Effective Begin Date Effective End Date Medicare [place] Medicare Part B [id number] Unknown Unknown Medicaid [place] Medicare Part B [id number] Unknown Unknown Family History Family History data not found Allergies, Adverse Reactions, Alerts Substance Reaction Codes Entered Date Inactivated Date Status LISINOPRIL RxNorm: 06079 02/12/2020 No Inactive Da te Active Metformin [...] 02/12/2020 Active Coronary artery disease invo lving [place] coronary artery of [place] heart, angina presence unspecified ICD-10: I25.10 ICD-9: 414.01 02/12/2020 Active Depression ICD-10: F32.9 ICD-9: 311 02/12/2020 Active Gout due to renal impairment ICD-10: M10 .30 ICD-9: 274.10 02/12/2020 Active Hyperlipidemia associated wi th type 2 diabetes mellitus ICD-10: E11.69 ICD-9: 250.80 02/12/2020 Active Learning disability ICD-10: F81.9 ICD-9: 315.2 02/12/2020 Active buttermaker 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 churn (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 insulin ICD-10: Z79.4 02/11 [...] Inactive Nystop 100,000 unit/gram topical powder RxNorm: 774410 Apply to abd folds, under breasts and L side of groin Topical BID x 14 days, then BID PRN 0 021 Inactive dx: yeast dermatitis Lyrica 100 mg capsule RxNorm: 590801 Take 1 Capsule(s) Oral QHS every night at bedtime 0 020 Inactive Lyrica 50 mg capsule RxNorm: 920862 Take 1 Capsule(s) Oral QAM every morning 0 020 Inactive ketoconazole 2 % shampoo RxNorm: 544934 Apply Topical two times a week with showers 0 Inactive cholecalciferol (vitamin D3) 50 mcg (2,000 unit) tablet RxNorm: 710594 Take 1 Tablet(s) Oral QD 0 021 Inactive Zetia 10 mg tablet RxNorm: 811488 Take 1 Tablet(s) Oral QD 0 021 Inactive Zetia 10 mg tablet RxNorm: 159934 Take 1 Tablet(s) Oral QD 0 020 Inactive Lyrica 50 mg capsule RxNorm: 054271 Take 1 Capsule(s) Oral QAM every morning 0 020 Inactive Lyrica 100 mg capsule RxNorm: 014023 Take 1 Capsule(s) Oral QHS every night at bedtime 0 020 Inactive Lyrica 100 mg capsule RxNorm: 852774 Take 1 Capsule(s) Oral QHS every night at bedtime 0 020 Inactive Lyrica 50 mg capsule RxNorm: 407158 Take 1 Capsule(s) Oral QAM every morning [...] Specialists [facility] WPtel: [address], [address] [id number] [place] Referral Records Received 09/21/2022 Referral: Endocrinology Clin [facility] of [facility] WPtel: [address] [id number] [place] Referral Completed 05/28/2021 Referral: General Cardiology Referral Complet ed 01/03/2021 Referral: General Psychologist Referral Close d Instructions Comment Date Leonid is a?? Male being seen living at [facility]. Initial BPS visit 01/2020. PMHx including DMII, CAD w/ 5 stents, Depression, Seizure Disorder and CKD stage 3. He moved into [facility] in 12/2019 but after a hospitalization 05/2021 he moved to the [facility] to have closer nursing attention.??Sister Jyotsna involved in his care cell# [phone]??Guardian: Don (tapan met in person 09/01/21), now has Lexii (same group as don)Lab Schedule: * 10/06/2022
--- OUTSIDE RECORDS SUMMARY | 2022-11-09 23:09 | XMS_ITS | CCD ---
Author Name Unknown Organization Unknown Care Team Providers Care Senior Drupal Developer Name Role Phone Tapan Shirley PA-C Primary Care Provider Unavailabl e Tapan Shirley PA-C Chronic Care Management Unavaila ble Summary Purpose DataExchange Insurance Providers Payer name Policy type / Coverage type Covered republican ID Effective Begin Date Effective End Date Medicare [place] Medicare Part B [id number] Unknown Unknown Medicaid [place] Medicare Part B [id number] Unknown Unknown Family History Family History data not found Allergies, Adverse Reactions, Alerts Substance Reaction Codes Entered Date Inactivated Date Status LISINOPRIL RxNorm: 94190 02/12/2020 No Inactive Da te Active Metformin [...] disability ICD-10: F81.9 ICD-9: 315.2 02/12/2020 Active supervisor intermediates (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 insulin ICD-10: Z79.4 02/11 [...] Fill Instructions Lyrica 100 mg capsule RxNorm: 112995 Take 1 Capsule(s) Oral QHS every night at bedtime 0 Inactive Lyrica 50 mg capsule RxNorm: 525509 Take 1 Capsule(s) Oral QAM every morning 0 Inactive ketoconazole 2 % shampoo RxNorm: 435795 Apply Topical two times a week with showers 0 021 Inactive cholecalciferol (vitamin D3) 50 mcg (2,000 unit) tablet RxNorm: 427099 Take 1 Tablet(s) Oral QD 0 021 Inactive Zetia 10 mg tablet RxNorm: 071231 Take 1 Tablet(s) Oral QD 0 021 Inactive Zetia 10 mg tablet RxNorm: 147147 Take 1 Tablet(s) Oral QD 0 020 Inactive Lyrica 50 mg capsule RxNorm: 438509 Take 1 Capsule(s) Oral QAM every morning 0 Inactive Lyrica 100 mg capsule RxNorm: 731559 Take 1 Capsule(s) Oral QHS every night at bedtime 0 Inactive Lyrica 100 mg capsule RxNorm: 239430 Take 1 Capsule(s) Oral QHS every night at bedtime 0 Inactive Lyrica 50 mg capsule RxNorm: 122592 Take 1 Capsule(s) Oral QAM every morning [...] Status Date Referral: [facility] WPtel: [address] [facility], [address] [id number] [place] Referral Records Received 09/21/2022 Referral: Endocrinology Clin [facility] of [facility] WPtel: [address] [facility] [id number] [place] Referral Completed 05/28/2021 Referral: General Cardiology Referral Complet ed 01/03/2021 Referral: General Psychologist Referral Close d Instructions Comment Date Leonid is a?? Male being seen living at [facility]. Initial BPS visit 01/2020. PMHx including DMII, CAD w/ 5 stents, Depression, Seizure Disorder and CKD stage 3. He moved into [facility] in 12/2019 but after a hospitalization 05/2021 he moved to the [facility] to have closer nursing attention.??Sister Jyotsna involved in his care cell# [phone]??Guardian: Don (tapan met in person 09/01/21), now has Lexii (same group as don)Lab Schedule: * 10/06/2022
--- NOTE | 2022-11-09 23:10 | ED.GENADULT ---
HPI - General Adult General Chief complaint: Diabetic Related Problem Stated complaint: hyperglycemia Time Seen by Provider: 11/09/22 23:01 History of Present Illness HPI narrative: This 62-year-old male resides in a long-term and is sent here by ambulance because of persistent elevated blood glucose levels. He does have diabetes and is dependent non insulin. He states that they have been increasing over the past couple weeks. He reports that the ones who administer his medications at the long-term are sometimes not so careful with these medicines. He states that he received an injection of insulin this morning and half of it ran down his arm. He arrives here with normal vital signs. He is not reporting any new complaints or symptoms. Glucometer reading upon arrival showed a blood glucose of 518. Related Data Home Medications Medication Instructions Recorded Confirmed amlodipine 10 mg tablet 10 mg PO DAILY 03/07/22 07/24/22 apixaban 5 mg tablet (Eliquis) 5 mg PO BID 03/07/22 07/24/22 aripiprazole 15 mg tablet 7.5 mg PO DAILY 03/07/22 07/24/22 aspirin 81 mg tablet,delayed 81 mg PO DAILY 03/07/22 07/24/22 release carbamazepine 200 mg tablet 200 mg PO BID 03/07/22 07/24/22 chlorthalidone 25 mg tablet 25 mg PO DAILY 03/07/22 07/24/22 ezetimibe 10 mg tablet 10 mg PO DAILY 03/07/22 07/24/22 hydralazine 50 mg tablet 50 mg PO QID 03/07/22 07/24/22 isosorbide mononitrate 30 mg 30 mg PO DAILY 03/07/22 07/24/22 tablet,extended release 24 hr pantoprazole 40 mg tablet,delayed 40 mg PO DAILY 03/07/22 07/24/22 release polyethylene glycol 3350 17 17 g PO DAILY 03/07/22 07/25/22 gram/dose oral powder pravastatin 80 mg tablet 80 mg PO HS 03/07/22 07/24/22 pregabalin 100 mg capsule 100 mg PO QAM 03/07/22 07/24/22 pregabalin 150 mg capsule 150 mg PO HS 03/07/22 07/24/22 torsemide 20 mg tablet 20 mg PO DAILY 03/07/22 07/24/22 venlafaxine 75 mg capsule,extended 225 mg PO DAILY 03/07/22 07/24/22 release 24 hr acetaminophen 500 mg tablet 500 mg PO Q6H 06/13/22 07/24/22 albuterol sulfate 90 mcg/actuation 1 inh inhalation Q4H PRN 06/13/22 07/24/22 aerosol inhaler bronchospasm diphenhydramine HCl 50 mg capsule 50 mg PO Q6H PRN itching 06/13/22 07/24/22 (Banophen) icosapent ethyl 1 gram capsule 2 g PO BID 06/13/22 07/24/22 (Vascepa) insulin regular hum U-500 conc 500 85 unit subcut TID 06/13/22 07/24/22 unit/mL(3 mL) subcut pen (Humulin R U-500 (Conc) Insulin Kwikpen) ketoconazole 2 % shampoo 1 applic topical Q3D 06/13/22 07/24/22 loperamide 2 mg capsule 2 mg PO Q6H PRN loose stool 06/13/22 07/24/22 nystatin 100,000 unit/gram topical 1 applic topical BID PRN 06/13/22 07/24/22 powder sennosides 8.6 mg tablet (senna) 8.6 mg PO DAILY 06/13/22 07/24/22 clotrimazole 1 % topical cream 1 applic topical BID 07/25/22 07/25/22 ergocalciferol (vitamin D2) 1,250 50,000 unit PO WE@07/25/22 07/25/22 mcg (50,000 unit) capsule fluconazole 150 mg tablet 150 mg PO TUFR@07/25/22 07/25/22 gatifloxacin 0.5 % eye drops 1 drp ophthalmic (eye) QID 07/25/22 07/25/22 ketorolac 0.5 % eye drops 1 drp ophthalmic (eye) QID 07/25/22 07/25/22 prednisolone acetate 1 % eye 1 drp ophthalmic (eye) QID 07/25/22 07/25/22 drops,suspension Previous Rx's Medication Instructions Recorded amoxicillin 875 mg-potassium 1 tab PO BID 7 days #14 tabs 07/26/22 clavulanate 125 mg tablet carvedilol 25 mg tablet 25 mg PO Q12H 30 days #60 tabs 07/26/22 lisinopril 20 mg tablet 20 mg PO DAILY 30 days #60 tabs 07/26/22 cephalexin 500 mg capsule 500 mg PO TID 10 days #30 caps 09/14/22 hydrocortisone 2.5 % topical cream 1 applic topical BID PRN #30 grams 09/14/22 nystatin 100,000 unit/gram topical 1 applic topical BID #30 grams 09/14/22 powder potassium chloride 20 mEq oral 20 meq PO DAILY 3 days #3 ea 10/19/22 packet Allergies Allergy/AdvReac Type Severity Reaction Status Date / Time lisinopril AdvReac Verified 11/09/22 22:58 metformin AdvReac Verified 11/09/22 22:58 Review of Systems Status of ROS: Reports: 10 or more systems reviewed and unremarkable except as noted in History and below Narrative: Constitutional: No fevers, no weight gain or loss. Eyes: No discharge. Blurry vision at times. HENT: No congestion, no sore throat, no ear pain. Cardiovascular: No chest pain, no palpitations. Respiratory: No shortness of breath, no wheezes, no cough. Gastrointestinal: No abdominal pain, no vomiting, no diarrhea. Genitourinary: No dysuria, no hematuria. Musculoskeletal: Normal range of motion. Skin: No rashes, no pruritis. Neurological: No dizziness, weakness, speech change. Peripheral neuropathy secondary to diabetes. Endo/Heme/Allergies: No bruising or bleeding. No polydipsia. Pysch: no suicidality, no anxiety, no insomnia. All other systems reviewed and are negative. [facility] Medical History Insulin dependent diabetes mellitus Recurrent deep vein thrombosis (DVT) ?I82.409 - Acute embolism and thrombosis of unspecified deep veins of unspecified lower extremity (ICD-10) Hypertension ?I10 - Essential (primary) hypertension (ICD-10) Coronary artery disease ?I25.10 - Atherosclerotic heart disease of [place] coronary artery without angina pectoris (ICD-10) Hypertriglyceridemia ?E78.1 - Pure hyperglyceridemia (ICD-10) Epilepsy ?G40.909 - Epilepsy, unspecified, not intractable, without status epilepticus (ICD-10) TASHI on CPAP ?G47.33 - Obstructive sleep apnea (adult) (pediatric) (ICD-10) ?Z99.89 - Dependence on other enabling machines and devices (ICD-10) Tachypnea ?R06.82 - Tachypnea, not elsewhere classified (ICD-10) Fever ?R50.9 - Fever, unspecified (ICD-10) CKD (chronic kidney disease) ?N18.9 - Chronic kidney disease, unspecified (ICD-10) Gout ?M10.9 - Gout, unspecified (ICD-10) Major depressive disorder ?F32.9 - Major depressive disorder, single episode, unspecified (ICD-10) Type 2 diabetes mellitus ?E11.9 - Type 2 diabetes mellitus without complications (ICD-10) Obesity ?E66.9 - Obesity, unspecified (ICD-10) Surgical History History of cholecystectomy ?Z90.49 - Acquired absence of other specified parts of digestive tract (ICD-10) Social History Narrative: Lives in a long-term in [place], [place]. Sisters Brittany Suggs ([phone]) and Blanka Mcduffie ([phone]) listed as contacts and medical decision makers. Paperwork from long-term indicates Full Code status. Highest level of school completed/degree received: 12th grade, no diploma Smoking Status: Never smoker Do you use any of these nicotine containing products: None Second hand tobacco smoke exposure: No How often do you have a drink containing alcohol: never How often do you have six or more drinks on one occasion: Never AUDIT-C Alcohol total score: 0 Non-prescribed substance use: denies use Caffeine: No service: No Exam Narrative: Exam Narrative: Constitutional: Morbid obesity. No acute distress. HEENT: Normocephalic, atraumatic. Neck: Normal range of motion. Nontender. Supple. Heart: Regular. No murmurs. Normal rate. Intact distal pulses. Lungs: Clear to auscultation. No chest discomfort. No wheezes, rhonchi, or rales. Abdomen: Normal bowel sounds. Nontender. No rebound tenderness. Genitalia: Deferred. Back: No midline tenderness. Normal range of motion. Extremities: Normal range of motion. No injury. Skin: Intact. No rash. Warm. No erythema or pallor. Neurologic: No altered sensation. No weakness. Alert and oriented. Nursing notes and vitals signs are reviewed. Const: Vital Signs, click to edit/add: Vital Signs - 24 hr 11/09/22 22:55 Temperature 98.2 F Pulse Rate [Right Pulse Oximeter] 68 Respiratory Rate 18 Blood Pressure [Ri ght Upper Arm] 131/64 Pulse Oximetry 94 Oxygen Delivery Me thod Room Air Course Vital Signs Vital signs: Initial Vital Signs Temperature 98.2 F 11/09/22 22:55 Temperature Source Temporal Artery Scan 11/09/22 22:55 Pulse Rate 68 11/09/22 22:55 Pulse Rhythm Regular 11/09/22 22:55 Pulse Strength 3+ Normal 11/09/22 22:55 Respiratory Rate 18 11/09/22 22:55 Blood Pressure 131/64 11/09/22 22:55 Blood Pressure Mean 86 11/09/22 22:55 Blood Pressure Position Supine 11/09/22 22:55 Pulse Oximetry 94 11/09/22 22:55 Oxygen Delivery Method Room Air 11/09/22 22:55 Vital Signs Temperature 98.2 F 11/09/22 22:55 Pulse Rate 68 11/09/22 22:55 Respiratory Rate 18 11/09/22 22:55 Blood Pressure 131/64 11/09/22 22:55 Pulse Oximetry 94 11/09/22 22:55 Oxygen Delivery Method Room Air 11/09/22 22:55 Temperature 98.2 F 11/09/22 22:55 Pulse Rate 68 11/09/22 22:55 Respiratory Rate 18 11/09/22 22:55 Blood Pressure 131/64 11/09/22 22:55 Pulse Oximetry 94 11/09/22 22:55 Oxygen Delivery Method Room Air 11/09/22 22:55 Medical Decision Making MDM Narrative Medical decision making narrative: This patient arrives with persistent elevated blood glucose levels. Glucometer reading here shows a level of 518. Patient did received 10 units of regular insulin intravenously along with IV fluids. Recheck of blood glucose returns at 473. He is okay to return home. I stressed to him the importance of getting the medication that is actually prescribed and encouraged him to advocate for proper 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 of his insulin. He is instructed also to follow-up with his primary physician for ongoing management. Discharge Plan Discharge Clinical Impression: Insulin dependent diabetes mellitus, Hyperglycemia Patient Disposition: Home, Self-Care Condition: Stable Additional Instructions: Resume current plans. Follow up with primary physician to review medications. Return if worsening. Prescriptions: No Action amlodipine 10 mg tablet 10 mg PO DAILY aripiprazole 15 mg tablet 7.5 mg PO DAILY Eliquis 5 mg tablet 5 mg PO BID aspirin 81 mg tablet,delayed release (DR/EC) 81 mg PO DAILY venlafaxine 75 mg capsule,extended release 24hr 225 mg PO DAILY torsemide 20 mg tablet 20 mg PO DAILY isosorbide mononitrate 30 mg tablet extended release 24 hr 30 mg PO DAILY chlorthalidone 25 mg tablet 25 mg PO DAILY carbamazepine 200 mg tablet 200 mg PO BID pravastatin 80 mg tablet 80 mg PO HS pantoprazole 40 mg tablet,delayed release (DR/EC) 40 mg PO DAILY hydralazine 50 mg tablet 50 mg PO QID Patient Comments: 08,12,16,20 ezetimibe 10 mg tablet 10 mg PO DAILY pregabalin 100 mg capsule 100 mg PO QAM pregabalin 150 mg capsule 150 mg PO HS polyethylene glycol 3350 17 gram/dose powder 17 g PO DAILY Rx Instructions: AND TWICE DAILY NEEDED sennosides [senna] 8.6 mg tablet 8.6 mg PO DAILY ketoconazole 2 % shampoo 1 applic TOPICAL Q3D diphenhydramine HCl [Banophen] 50 mg capsule 50 mg PO Q6H PRN (Reason: itching) loperamide 2 mg capsule 2 mg PO Q6H PRN (Reason: loose stool) acetaminophen 500 mg tablet 500 mg PO Q6H nystatin 100,000 unit/gram powder 1 applic TOPICAL BID PRN albuterol sulfate 90 mcg/actuation HFA aerosol inhaler 1 inh INHALATION Q4H PRN (Reason: bronchospasm) icosapent ethyl [Vascepa] 1 gram capsule 2 g PO BID Humulin R U-500 (Conc) Kwikpen 500 unit/mL (3 mL) insulin pen 85 unit SUBCUT TID clotrimazole 1 % cream 1 applic topical BID Rx Instructions: GROIN,PERIAREA AND ABDOMIN fluconazole 150 mg tablet 150 mg PO TUFR@09 gatifloxacin 0.5 % drops 1 drp ophthalmic (eye) QID ketorolac 0.5 % drops 1 drp ophthalmic (eye) QID Rx Instructions: STOP DATE 08/11/22 prednisolone acetate 1 % drops,suspension 1 drp ophthalmic (eye) QID Rx Instructions: STOP DATE 08/12/22 ergocalciferol (vitamin D2) 1,250 mcg (50,000 unit) capsule 50,000 unit PO WE@09 carvedilol 25 mg Tablet 25 mg PO Q12H 30 Days Qty: 60 0RF lisinopril 20 mg Tablet 20 mg PO DAILY 30 Days Qty: 60 0RF amoxicillin-pot clavulanate 875-125 mg tablet 1 tab PO BID 7 Days Qty: 14 0RF nystatin 100,000 unit/gram powder 1 applic topical BID Qty: 30 1RF hydrocortisone 2.5 % cream 1 applic topical BID PRNQty: 30 1RF cephalexin 500 mg capsule 500 mg PO TID 10 Days Qty: 30 0RF potassium chloride 20 mEq packet 20 meq PO DAILY 3 Days Qty: 3 0RF Follow Up/Referrals: Provider,Not a Local [Primary Care Provider] - Stand Alone [facility] Info Instructions
--- OUTSIDE RECORDS SUMMARY | 2022-11-09 23:10 | XMS_ITS | CCD ---
Author Name Unknown Organization Unknown Care Team Providers Care Shuttle Fixer Name Role Phone Tapan Shirley PA-C Primary Care Provider Unavailabl e Tapan Shirley PA-C Chronic Care Management Unavaila ble Summary Purpose DataExchange Insurance Providers Payer name Policy type / Coverage type Covered republican ID Effective Begin Date Effective End Date Medicare [place] Medicare Part B [id number] Unknown Unknown Medicaid [place] Medicare Part B [id number] Unknown Unknown Family History Family History data not found Allergies, Adverse Reactions, Alerts Substance Reaction Codes Entered Date Inactivated Date Status LISINOPRIL RxNorm: 42477 02/12/2020 No Inactive Da te Active Metformin [...] 02/12/2020 Active Coronary artery disease invo lving [place] coronary artery of [place] heart, angina presence unspecified ICD-10: I25.10 ICD-9: 414.01 02/12/2020 Active Depression ICD-10: F32.9 ICD-9: 311 02/12/2020 Active Gout due to renal impairment ICD-10: M10 .30 ICD-9: 274.10 02/12/2020 Active Hyperlipidemia associated wi th type 2 diabetes mellitus ICD-10: E11.69 ICD-9: 250.80 02/12/2020 Active Learning disability ICD-10: F81.9 ICD-9: 315.2 02/12/2020 Active long term acute care registered nurse (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 insulin ICD-10: Z79.4 02/11 [...] Fill Instructions Lyrica 50 mg capsule RxNorm: 738085 Take 1 Capsule(s) Oral QAM every morning 0 Inactive Lyrica 100 mg capsule RxNorm: 923319 Take 1 Capsule(s) Oral QHS every night [...] Inactive Nystop 100,000 unit/gram topical powder RxNorm: 064231 Apply to abd folds, under breasts and L side of groin Topical BID x 14 days, then BID PRN 0 Inactive dx: yeast dermatitis Lyrica 100 mg capsule RxNorm: 976363 Take 1 Capsule(s) Oral QHS every night at bedtime 0 Inactive Lyrica 50 mg capsule RxNorm: 257027 Take 1 Capsule(s) Oral QAM every morning 0 Inactive ketoconazole 2 % shampoo RxNorm: 781744 Apply Topical two times a week with showers 0 Inactive cholecalciferol (vitamin D3) 50 mcg (2,000 unit) tablet RxNorm: 382306 Take 1 Tablet(s) Oral QD 0 Inactive Zetia 10 mg tablet RxNorm: 443699 Take 1 Tablet(s) Oral QD 0 021 Inactive Zetia 10 mg tablet RxNorm: 183602 Take 1 Tablet(s) Oral QD 0 Inactive Lyrica 50 mg capsule RxNorm: 355130 Take 1 Capsule(s) Oral QAM every morning 0 Inactive Lyrica 100 mg capsule RxNorm: 380263 Take 1 Capsule(s) Oral QHS every night at bedtime 0 Inactive Lyrica 100 mg capsule RxNorm: 712229 Take 1 Capsule(s) Oral QHS every night at bedtime 0 Inactive Lyrica 50 mg capsule RxNorm: 782433 Take 1 Capsule(s) Oral QAM every morning [...] Date Referral: [facility] WPtel: [address], [address] [id number] [place] Referral Records Received 09/21/2022 Referral: Endocrinology Clin [facility] of [facility] WPtel: [address] [facility] [address] [id number] [place] Referral Completed 05/28/2021 Referral: General Cardiology Referral Complet ed 01/03/2021 Referral: General Psychologist Referral Close d Instructions Comment Date Leonid is a?? Male being seen living at [facility]. Initial BPS visit 01/2020. PMHx including DMII, CAD w/ 5 stents, Depression, Seizure Disorder and CKD stage 3. He moved into [facility] in 12/2019 but after a hospitalization 05/2021 he moved to the [facility] to have closer nursing attention.??Sister Jyotsna involved in his care cell# [phone]??Guardian: Don (tapan met in person 09/01/21), now has Lexii (same group as don)Lab Schedule: * 10/06/2022
--- OUTSIDE RECORDS SUMMARY | 2022-11-09 23:10 | XMS_ITS | CCD ---
Author Name Akhil Guerrero MD Address [address] [facility] [address] [place] [address] Phone Organization [facility] Phone Care Team Providers Care Concrete Products Machine Operator Name Role Phone Rosalina Shirley PA-C Primary Care Provider Unavailabl e Rosalina Shirley PA-C Chronic Care Management Unavaila ble Summary Purpose DataExchange Insurance Providers Payer name Policy type / Coverage type Covered green party ID Effective Begin Date Effective End Date Medicare [place] Medicare Part B [id number] Unknown Unknown Medicaid [place] Medicare Part B [id number] Unknown Unknown Family History Family History data not found Allergies, Adverse Reactions, Alerts Substance Reaction Codes Entered Date Inactivated Date Status LISINOPRIL RxNorm: 37616 02/12/2020 No Inactive Da te Active Metformin [...] mellitus ICD-10: E11.69 ICD-9: 250.80 05/15/2020 Active senior care (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 insulin [...] 02/12/2020 Active Coronary artery disease invo lving [place] coronary artery of [place] heart, angina presence unspecified ICD-10: I25.10 ICD-9: [...] Instructions clotrimazole 1 % topical cream RxNorm: 841296 Apply to bilateral groin areas Topical BID 0 Inactive hydrocortisone 2.5 % topical cream RxNorm: 674290 Apply to bilateral groin creases Topical BID 0 021 Inactive Lyrica 50 mg capsule RxNorm: 860621 Take 1 Capsule(s) Oral QAM every morning 0 Inactive Lyrica 100 mg capsule RxNorm: 608279 Take 1 Capsule(s) Oral QHS every night [...] Inactive Nystop 100,000 unit/gram topical powder RxNorm: 153594 Apply to abd folds, under breasts and L side of groin Topical BID x 14 days, then BID PRN 0 021 Inactive dx: yeast dermatitis Lyrica 100 mg capsule RxNorm: 888780 Take 1 Capsule(s) Oral QHS every night at bedtime 0 Inactive Lyrica 50 mg capsule RxNorm: 868304 Take 1 Capsule(s) Oral QAM every morning 0 Inactive ketoconazole 2 % shampoo RxNorm: 609772 Apply Topical two times a week with showers 0 021 Inactive cholecalciferol (vitamin D3) 50 mcg (2,000 unit) tablet RxNorm: 302208 Take 1 Tablet(s) Oral QD 0 021 Inactive Zetia 10 mg tablet RxNorm: 048039 Take 1 Tablet(s) Oral QD 0 021 Inactive Zetia 10 mg tablet RxNorm: 167578 Take 1 Tablet(s) Oral QD 0 020 Inactive Lyrica 50 mg capsule RxNorm: 759852 Take 1 Capsule(s) Oral QAM every morning 0 020 Inactive Lyrica 100 mg capsule RxNorm: 001253 Take 1 Capsule(s) Oral QHS every night at bedtime 0 Inactive Lyrica 100 mg capsule RxNorm: 588179 Take 1 Capsule(s) Oral QHS every night at bedtime 0 Inactive Lyrica 50 mg capsule RxNorm: 854712 Take 1 Capsule(s) Oral QAM every morning [...] to other viral communicable diseases[ICD10: Z20.828] [facility] [address] [place] [address] CPT-4: 80283 05/23/2020 Plan of Care Planned Activity Notes Codes Status Date Referral: [facility] WPtel: [address] , [address] [id number] [place] Referral Records Received 09/21/2022 Referral: Endocrinology Clin ic of [facility] WPtel: [address] [id number] [place] Referral Completed 05/28/2021 Referral: General Cardiology [...] [facility] have [facility].??Sister Jyotsna involved in his care cell# [phone]??Guardian: Don (rosalina met in person 09/01/21), now has Lexii (same group as don)Lab Schedule: * 10/06/2022
--- OUTSIDE RECORDS SUMMARY | 2022-11-09 23:10 | XMS_ITS | CCD ---
Author Name Sandra Mandujano CNP Address [address] [facility] [address] [place] [address] Phone Organization [facility] Phone Care Team Providers Care Table Games Dual Rate Supervisor Name Role Phone Tapan Shirley PA-C Primary Care Provider Unavailabl e Tapan Shirley PA-C Chronic Care Management Unavaila ble Summary Purpose DataExchange Insurance Providers Payer name Policy type / Coverage type Covered alliance party ID Effective Begin Date Effective End Date Medicare [place] Medicare Part B [id number] Unknown Unknown Medicaid [place] Medicare Part B [id number] Unknown Unknown Family History Family History data not found Allergies, Adverse Reactions, Alerts Substance Reaction Codes Entered Date Inactivated Date Status LISINOPRIL RxNorm: 82542 02/12/2020 No Inactive Da te Active Metformin [...] palms ICD-10: L74.512 ICD-9: 705.21 05/15/2020 Active assisted (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 insulin [...] 02/12/2020 Active Coronary artery disease invo lving [place] coronary artery of [place] heart, angina presence unspecified ICD-10: I25.10 ICD-9: [...] Instructions hydrocortisone 2.5 % topical cream RxNorm: 131142 Apply to bilateral groin creases Topical BID 0 Inactive clotrimazole 1 % topical cream RxNorm: 818850 Apply to bilateral groin areas Topical BID 0 Inactive Lyrica 50 mg capsule RxNorm: 533543 Take 1 Capsule(s) Oral QAM every morning 0 Inactive Lyrica 100 mg capsule RxNorm: 687614 Take 1 Capsule(s) Oral QHS every night [...] Inactive Nystop 100,000 unit/gram topical powder RxNorm: 947053 Apply to abd folds, under breasts and L side of groin Topical BID x 14 days, then BID PRN 0 021 Inactive dx: yeast dermatitis Lyrica 100 mg capsule RxNorm: 552122 Take 1 Capsule(s) Oral QHS every night at bedtime 0 Inactive Lyrica 50 mg capsule RxNorm: 624268 Take 1 Capsule(s) Oral QAM every morning 0 Inactive ketoconazole 2 % shampoo RxNorm: 199004 Apply Topical two times a week with showers 0 021 Inactive cholecalciferol (vitamin D3) 50 mcg (2,000 unit) tablet RxNorm: 478907 Take 1 Tablet(s) Oral QD 0 021 Inactive Zetia 10 mg tablet RxNorm: 660768 Take 1 Tablet(s) Oral QD 0 021 Inactive Zetia 10 mg tablet RxNorm: 743262 Take 1 Tablet(s) Oral QD 0 020 Inactive Lyrica 50 mg capsule RxNorm: 123555 Take 1 Capsule(s) Oral QAM every morning 0 020 Inactive Lyrica 100 mg capsule RxNorm: 932913 Take 1 Capsule(s) Oral QHS every night at bedtime 0 Inactive Lyrica 100 mg capsule RxNorm: 516552 Take 1 Capsule(s) Oral QHS every night at bedtime 0 Inactive Lyrica 50 mg capsule RxNorm: 755221 Take 1 Capsule(s) Oral QAM every morning [...] Encounter Performer Location Location Address Codes Date (47053) DOMICIL VISIT EST PAT w/95 modifier Diagnosis: Candidiasis, intertrigo[ICD10: B37.2] Diagnosis: Gout due to renal impairment[ICD10: M10.30] Diagnosis: Learning disability[ICD10: F81.9] Diagnosis: Type 2 diabetes mellitus with diabetic polyneuropathy, with long-term current use of insulin[ICD10: E11.42] Diagnosis: CKD stage 3 due to type 2 diabetes mellitus[ICD10: E11.22] Diagnosis: Hyperlipidemia associated with type 2 diabetes mellitus[ICD10: E11.69] Sandra Mandujano [facility] [address] [place] [address] CPT-4: 34828 06/10/2020 Plan of Care Planned Activity Notes Codes Status Date Referral: [facility] WPtel: [address], [address] [id number] [place] Referral Records Received 09/21/2022 Referral: Endocrinology Clin [facility] of [facility] WPtel: [address] [id number] [place] Referral Completed 05/28/2021 Referral: General Cardiology Referral Complet ed 01/03/2021 Patient Education: Patient M edication Summary Completed 06/10/2020 Patient Education: Influenza Vaccine Completed 06/10/2020 Referral: General Psychologist Referral Close d Instructions Comment Date Leonid is a?? Male being seen living at [facility]. Initial BPS visit 01/2020. PMHx including DMII, CAD w/ 5 stents, Depression, Seizure Disorder and CKD stage 3. He moved into [facility] in 12/2019 but after a hospitalization 05/2021 he moved to the [facility] to have closer nursing attention.??Sister Jyotsna involved in his care cell# [phone]??Guardian: Don (tapan met in person 09/01/21), now [...] Needs to apply groin area cream himself.?? . 06/10/2020
--- OUTSIDE RECORDS SUMMARY | 2022-11-09 23:10 | XMS_ITS | CCD ---
Author Name Sandra Mandujano CNP Address [address] [place] [address] Phone Organization [facility] Phone Care Team Providers Care Gill Box Tender Name Role Phone Tapan Shirley PA-C Primary Care Provider Unavailabl e Tapan Shirley PA-C Chronic Care Management Unavaila ble Summary Purpose DataExchange Insurance Providers Payer name Policy type / Coverage type Covered democrat ID Effective Begin Date Effective End Date Medicare [place] Medicare Part B [id number] Unknown Unknown Medicaid [place] Medicare Part B [id number] Unknown Unknown Family History Family History data not found Allergies, Adverse Reactions, Alerts Substance Reaction Codes Entered Date Inactivated Date Status LISINOPRIL RxNorm: 12627 02/12/2020 No Inactive Da te Active Metformin [...] mellitus ICD-10: E11.69 ICD-9: 250.80 05/15/2020 Active kettle coordinator (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 insulin ICD-10: Z79.4 05/15 [...] 02/12/2020 Active Coronary artery disease invo lving [place] coronary artery of [place] heart, angina presence unspecified ICD-10: I25.10 ICD-9: [...] Instructions hydrocortisone 2.5 % topical cream RxNorm: 178728 Apply to bilateral groin creases Topical BID 0 Inactive clotrimazole 1 % topical cream RxNorm: 007075 Apply to bilateral groin areas Topical BID 0 Inactive Lyrica 50 mg capsule RxNorm: 683174 Take 1 Capsule(s) Oral QAM every morning 0 Inactive Lyrica 100 mg capsule RxNorm: 803182 Take 1 Capsule(s) Oral QHS every night [...] Inactive Nystop 100,000 unit/gram topical powder RxNorm: 480275 Apply to abd folds, under breasts and L side of groin Topical BID x 14 days, then BID PRN 0 021 Inactive dx: yeast dermatitis Lyrica 100 mg capsule RxNorm: 818360 Take 1 Capsule(s) Oral QHS every night at bedtime 0 Inactive Lyrica 50 mg capsule RxNorm: 041168 Take 1 Capsule(s) Oral QAM every morning 0 Inactive ketoconazole 2 % shampoo RxNorm: 889112 Apply Topical two times a week with showers 0 Inactive cholecalciferol (vitamin D3) 50 mcg (2,000 unit) tablet RxNorm: 564861 Take 1 Tablet(s) Oral QD 0 021 Inactive Zetia 10 mg tablet RxNorm: 121146 Take 1 Tablet(s) Oral QD 0 021 Inactive Zetia 10 mg tablet RxNorm: 419503 Take 1 Tablet(s) Oral QD 0 020 Inactive Lyrica 50 mg capsule RxNorm: 375408 Take 1 Capsule(s) Oral QAM every morning 0 020 Inactive Lyrica 100 mg capsule RxNorm: 543322 Take 1 Capsule(s) Oral QHS every night at bedtime 0 Inactive Lyrica 100 mg capsule RxNorm: 627411 Take 1 Capsule(s) Oral QHS every night at bedtime 0 Inactive Lyrica 50 mg capsule RxNorm: 775326 Take 1 Capsule(s) Oral QAM every morning [...] Encounter Performer Location Location Address Codes Date (12393) DOMICIL/R-HOME VISIT EST PAT Diagnosis: Candidiasis, intertrigo[ICD10: B37.2] Diagnosis: Type 2 diabetes mellitus with diabetic polyneuropathy, with long-term current use of insulin[ICD10: E11.42] Diagnosis: CKD stage 3 due to type 2 diabetes mellitus[ICD10: E11.22] Diagnosis: Hyperlipidemia associated with type 2 diabetes mellitus[ICD10: E11.69] Diagnosis: 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 [id number] [place] Referral Records Received 09/21/2022 Referral: [facility] [place] W[facility]el: [address] [id number] [place] Referral Completed 05/28/2021 Referral: General Cardiology Referral Complet ed 01/03/2021 Patient Education: Patient M edication Summary Completed 05/15/2020 Patient Education: Influenza Vaccine Completed 05/15/2020 Referral: General Psychologist Referral Close d Instructions Comment Date Leonid is a?? Male being seen living at [facility]. Initial BPS visit 01/2020. PMHx including DMII, CAD w/ 5 stents, Depression, Seizure Disorder and CKD stage 3. He moved into [facility] in 12/2019 but after a hospitalization 05/2021 he moved to the [facility] to have closer nursing attention.??Sister Jyotsna involved in his care cell# [phone]??Guardian: Don (tapan met in person 09/01/21), now has Lex[facility] (same group as don)Lab Schedule: * 10/06/2022 Candidiasis, intertrigo Current treatment working well.?? Edema Elevated feet, have good water intake.?? Diabetes Checking Cholesterol level to follow up after addition of Zetia.?? Hyperhidrosis of palms Recommend use of Carpe; needs to purchase OOP.?? kettle coordinator (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 insulin Continue to follow Dr. Hurd' orders.?? . 05/15/2020
--- OUTSIDE RECORDS SUMMARY | 2022-11-09 23:10 | XMS_ITS | CCD ---
Author Name Unknown Organization Unknown Care Team Providers Care Outer Diameter Grinder Name Role Phone Tapan Shirley PA-C Primary Care Provider Unavailabl e Tapan Shirley PA-C Chronic Care Management Unavaila ble Summary Purpose DataExchange Insurance Providers Payer name Policy type / Coverage type Covered democrat ID Effective Begin Date Effective End Date Medicare [place] Medicare Part B [id number] Unknown Unknown Medicaid [place] Medicare Part B [id number] Unknown Unknown Family History Family History data not found Allergies, Adverse Reactions, Alerts Substance Reaction Codes Entered Date Inactivated Date Status LISINOPRIL RxNorm: 11150 02/12/2020 No Inactive Da te Active Metformin [...] ICD-10: L74.512 ICD-9: 705.21 05/15/2020 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 ICD-10: Z79.4 05/15 [...] 02/12/2020 Active Coronary artery disease invo lving [place] coronary artery of [place] heart, angina presence unspecified ICD-10: I25.10 ICD-9: [...] Fill Instructions Lyrica 100 mg capsule RxNorm: 748281 Take 1 Capsule(s) Oral QHS every night at bedtime 1 021 Inactive Lyrica 50 mg capsule RxNorm: 709655 Take 1 Capsule(s) Oral QAM every morning 1 021 Inactive hydrocortisone 2.5 % topical cream RxNorm: 209105 Apply to bilateral groin creases Topical BID 0 021 Inactive clotrimazole 1 % topical cream RxNorm: 124689 Apply to bilateral groin areas Topical BID 0 021 Inactive Lyrica 50 mg capsule RxNorm: 578511 Take 1 Capsule(s) Oral QAM every morning 0 020 Inactive Lyrica 100 mg capsule RxNorm: 141079 Take 1 Capsule(s) Oral QHS every night [...] Inactive Nystop 100,000 unit/gram topical powder RxNorm: 277949 Apply to abd folds, under breasts and L side of groin Topical BID x 14 days, then BID PRN 0 021 Inactive dx: yeast dermatitis Lyrica 100 mg capsule RxNorm: 013028 Take 1 Capsule(s) Oral QHS every night at bedtime 0 Inactive Lyrica 50 mg capsule RxNorm: 376657 Take 1 Capsule(s) Oral QAM every morning 0 Inactive ketoconazole 2 % shampoo RxNorm: 324735 Apply Topical two times a week with showers 0 Inactive cholecalciferol (vitamin D3) 50 mcg (2,000 unit) tablet RxNorm: 616365 Take 1 Tablet(s) Oral QD 0 021 Inactive Zetia 10 mg tablet RxNorm: 636577 Take 1 Tablet(s) Oral QD 0 021 Inactive Zetia 10 mg tablet RxNorm: 265474 Take 1 Tablet(s) Oral QD 0 020 Inactive Lyrica 50 mg capsule RxNorm: 386266 Take 1 Capsule(s) Oral QAM every morning 0 Inactive Lyrica 100 mg capsule RxNorm: 692500 Take 1 Capsule(s) Oral QHS every night at bedtime 0 Inactive Lyrica 100 mg capsule RxNorm: 012931 Take 1 Capsule(s) Oral QHS every night at bedtime 0 Inactive Lyrica 50 mg capsule RxNorm: 499928 Take 1 Capsule(s) Oral QAM every morning [...] [facility] WPt[facility]: [address], [address] [id number] [place] Referral Records Received 09/21/2022 Referral: [facility] WPtel: [address] [id number] [place] Referral Completed 05/28/2021 Referral: General Cardiology Referral Complet ed 01/03/2021 Referral: General Psychologist Referral Close d Instructions Comment Date Leonid is a?? Male being seen living at [facility]. Initial BPS visit 01/2020. PMHx including DMII, CAD w/ 5 stents, Depression, Seizure Disorder and CKD stage 3. He moved into [facility] in 12/2019 but after a hospitalization 05/2021 he moved to the [facility] to have closer nursing attention.??Sister Jyotsna involved in his care cell# [phone]??Guardian: Don (tapan met in person 09/01/21), now has Lexii (same group as don)Lab Schedule: * 10/06/2022
--- OUTSIDE RECORDS SUMMARY | 2022-11-09 23:11 | XMS_ITS | CCD ---
Author Name Unknown Organization Unknown Care Team Providers Care Hull Line Crew Member Name Role Phone Tapan Shirley PA-C Primary Care Provider Unavailabl e Tapan Shirley PA-C Chronic Care Management Unavaila ble Summary Purpose DataExchange Insurance Providers Payer name Policy type / Coverage type Covered libertarian ID Effective Begin Date Effective End Date Medicare [place] Medicare Part B [id number] Unknown Unknown Medicaid [place] Medicare Part B [id number] Unknown Unknown Family History Family History data not found Allergies, Adverse Reactions, Alerts Substance Reaction Codes Entered Date Inactivated Date Status LISINOPRIL RxNorm: 50556 02/12/2020 No Inactive Da te Active Metformin [...] ICD-10: L74.512 ICD-9: 705.21 05/15/2020 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 ICD-10: Z79.4 [...] 02/12/2020 Active Coronary artery disease invo lving [place] coronary artery of [place] heart, angina presence unspecified ICD-10: I25.10 ICD-9: [...] Fill Instructions acetaminophen 500 mg tablet RxNorm: 473569 Take 1 Tablet(s) Oral TID as needed for headache 1 021 Inactive acetaminophen 500 mg tablet RxNorm: 765340 Take 1 Tablet(s) Oral TID as needed for headache 1 021 Inactive Lyrica 100 mg capsule RxNorm: 147720 Take 1 Capsule(s) Oral QHS every night at bedtime 1 021 Inactive Lyrica 50 mg capsule RxNorm: 858183 Take 1 Capsule(s) Oral QAM every morning 1 021 Inactive hydrocortisone 2.5 % topical cream RxNorm: 342246 Apply to bilateral groin creases Topical BID 0 021 Inactive clotrimazole 1 % topical cream RxNorm: 125386 Apply to bilateral groin areas Topical BID 0 021 Inactive Lyrica 50 mg capsule RxNorm: 218438 Take 1 Capsule(s) Oral QAM every morning 0 020 Inactive Lyrica 100 mg capsule RxNorm: 593735 Take 1 Capsule(s) Oral QHS every night [...] Inactive Nystop 100,000 unit/gram topical powder RxNorm: 262807 Apply to abd folds, under breasts and L side of groin Topical BID x 14 days, then BID PRN 0 021 Inactive dx: yeast dermatitis Lyrica 100 mg capsule RxNorm: 833584 Take 1 Capsule(s) Oral QHS every night at bedtime 0 020 Inactive Lyrica 50 mg capsule RxNorm: 067072 Take 1 Capsule(s) Oral QAM every morning 0 020 Inactive ketoconazole 2 % shampoo RxNorm: 904643 Apply Topical two times a week with showers 0 021 Inactive cholecalciferol (vitamin D3) 50 mcg (2,000 unit) tablet RxNorm: 451700 Take 1 Tablet(s) Oral QD 0 11/14/2 021 Inactive Zetia 10 mg tablet RxNorm: 248821 Take 1 Tablet(s) Oral QD 0 Inactive Zetia 10 mg tablet RxNorm: 012883 Take 1 Tablet(s) Oral QD 0 Inactive Lyrica 50 mg capsule RxNorm: 887940 Take 1 Capsule(s) Oral QAM every morning 0 Inactive Lyrica 100 mg capsule RxNorm: 214681 Take 1 Capsule(s) Oral QHS every night at bedtime 0 Inactive Lyrica 100 mg capsule RxNorm: 420317 Take 1 Capsule(s) Oral QHS every night at bedtime 0 Inactive Lyrica 50 mg capsule RxNorm: 913696 Take 1 Capsule(s) Oral QAM every morning [...] Status Date Referral: [facility] WPtel: [address], [address] [id number] [place] Referral Records Received 09/21/2022 Referral: [facility] WPtel: [address] [id number] [place] Referral Completed 05/28/2021 Referral: General Cardiology Referral Complet ed 01/03/2021 Referral: General Psychologist Referral Close d Instructions Comment Date Peter is a?? Male being seen living at [facility]. Initial BPS visit 01/2020. PMHx including DMII, CAD w/ 5 stents, Depression, Seizure Disorder and CKD stage 3. He moved into [facility] in 12/2019 but after a hospitalization 05/2021 he moved to the [facility] to have closer nursing attention.??Sister Jyotsna involved in his care cell# [phone]??Guardian: Don (tapan met in person 09/01/21), now has Lexii (same group as don)Lab Schedule: * 10/06/2022
--- OUTSIDE RECORDS SUMMARY | 2022-11-09 23:11 | XMS_ITS | CCD ---
Author Name Sandra Mandujano CNP Address [address] [place] [address] Phone Organization [facility] Phone Care Team Providers Care Disability Insurance Claim Examiner Name Role Phone Tapan Shirley PA-C Primary Care Provider Unavailabl e Tapan Shirley PA-C Chronic Care Management Unavaila ble Summary Purpose DataExchange Insurance Providers Payer name Policy type / Coverage type Covered republican ID Effective Begin Date Effective End Date Medicare [place] Medicare Part B [id number] Unknown Unknown Medicaid [place] Medicare Part B [id number] Unknown Unknown Family History Family History data not found Allergies, Adverse Reactions, Alerts Substance Reaction Codes Entered Date Inactivated Date Status LISINOPRIL RxNorm: 84031 02/12/2020 No Inactive Da te Active Metformin [...] 02/12/2020 Active Coronary artery disease invo lving [place] coronary artery of [place] heart, angina presence unspecified ICD-10: I25.10 ICD-9: [...] Fill Instructions acetaminophen 500 mg tablet RxNorm: 030302 Take 1 Tablet(s) Oral TID as needed for headache 1 021 Inactive Lyrica 100 mg capsule RxNorm: 330180 Take 1 Capsule(s) Oral QHS every night at bedtime 1 021 Inactive Lyrica 50 mg capsule RxNorm: 069347 Take 1 Capsule(s) Oral QAM every morning 1 021 Inactive hydrocortisone 2.5 % topical cream RxNorm: 945427 Apply to bilateral groin creases Topical BID 0 021 Inactive clotrimazole 1 % topical cream RxNorm: 774774 Apply to bilateral groin areas Topical BID 0 021 Inactive Lyrica 50 mg capsule RxNorm: 004635 Take 1 Capsule(s) Oral QAM every morning 0 020 Inactive Lyrica 100 mg capsule RxNorm: 688587 Take 1 Capsule(s) Oral QHS every night [...] Inactive Nystop 100,000 unit/gram topical powder RxNorm: 556792 Apply to abd folds, under breasts and L side of groin Topical BID x 14 days, then BID PRN 0 021 Inactive dx: yeast dermatitis Lyrica 100 mg capsule RxNorm: 305361 Take 1 Capsule(s) Oral QHS every night at bedtime 0 020 Inactive Lyrica 50 mg capsule RxNorm: 247788 Take 1 Capsule(s) Oral QAM every morning 0 020 Inactive ketoconazole 2 % shampoo RxNorm: 449762 Apply Topical two times a week with showers 0 021 Inactive cholecalciferol (vitamin D3) 50 mcg (2,000 unit) tablet RxNorm: 488033 Take 1 Tablet(s) Oral QD 0 Inactive Zetia 10 mg tablet RxNorm: 238664 Take 1 Tablet(s) Oral QD 0 Inactive Zetia 10 mg tablet RxNorm: 371638 Take 1 Tablet(s) Oral QD 0 Inactive Lyrica 50 mg capsule RxNorm: 232023 Take 1 Capsule(s) Oral QAM every morning 0 Inactive Lyrica 100 mg capsule RxNorm: 044927 Take 1 Capsule(s) Oral QHS every night at bedtime 0 Inactive Lyrica 100 mg capsule RxNorm: 767620 Take 1 Capsule(s) Oral QHS every night at bedtime 0 Inactive Lyrica 50 mg capsule RxNorm: 019516 Take 1 Capsule(s) Oral QAM every morning [...] Status Date Referral: [facility] WPtel: [address], [address] [id number] [place] Referral Records Received 09/21/2022 Referral: [facility] WPtel: [address] [id number] [place] Referral Completed 05/28/2021 Referral: General Cardiology Referral Completed 01/03/2021 Patient Education: Patient Medication Summary Completed 06/18/2020 Care Plan: BPS Referral Order SNOMED-CT : [id number] Pending 06/18/2020 Referral: General Psychologist Referral Closed Instructions Comment Date Leonid is a?? Male being seen living at [facility]. Initial BPS visit 01/2020. PMHx including DMII, CAD w/ 5 stents, Depression, Seizure Disorder and CKD stage 3. He moved into [facility] in 12/2019 but after a hospitalization 05/2021 he moved to the [facility] to have closer nursing attention.??Sister Jyotsna involved in his care cell# [phone]??Guardian: Don (tapan met in person 09/01/21), now has Lexii (same group as don)Lab Schedule: * 10/06/2022
--- OUTSIDE RECORDS SUMMARY | 2022-11-09 23:11 | XMS_ITS | CCD ---
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 Name Role Phone Rosalina Shirley PA-C Primary Care Provider Unavailabl e Rosalina Shirley PA-C Chronic Care Management Unavaila ble Summary Purpose DataExchange Insurance Providers Payer name Policy type / Coverage type Covered republican ID Effective Begin Date Effective End Date Medicare [place] Medicare Part B [id number] Unknown Unknown Medicaid [place] Medicare Part B [id number] Unknown Unknown Family History Family History data not found Allergies, Adverse Reactions, Alerts Substance Reaction Codes Entered Date Inactivated Date Status LISINOPRIL RxNorm: 27377 02/12/2020 No Inactive Da te Active Metformin [...] palms ICD-10: L74.512 ICD-9: 705.21 05/15/2020 Active custodial (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 insulin ICD-10: Z79.4 05/15 [...] Fill Instructions acetaminophen 500 mg tablet RxNorm: 886177 Take 1 Tablet(s) Oral TID as needed for headache 1 021 Inactive acetaminophen 500 mg tablet RxNorm: 898008 Take 1 Tablet(s) Oral TID as needed for headache 1 021 Inactive Lyrica 100 mg capsule RxNorm: 698321 Take 1 Capsule(s) Oral QHS every night at bedtime 1 021 Inactive Lyrica 50 mg capsule RxNorm: 031838 Take 1 Capsule(s) Oral QAM every morning 1 021 Inactive hydrocortisone 2.5 % topical cream RxNorm: 987581 Apply to bilateral groin creases Topical BID 0 021 Inactive clotrimazole 1 % topical cream RxNorm: 752942 Apply to bilateral groin areas Topical BID 0 021 Inactive Lyrica 50 mg capsule RxNorm: 129839 Take 1 Capsule(s) Oral QAM every morning 0 020 Inactive Lyrica 100 mg capsule RxNorm: 370585 Take 1 Capsule(s) Oral QHS every night [...] Inactive Nystop 100,000 unit/gram topical powder RxNorm: 257776 Apply to abd folds, under breasts and L side of groin Topical BID x 14 days, then BID PRN 0 021 Inactive dx: yeast dermatitis Lyrica 100 mg capsule RxNorm: 687134 Take 1 Capsule(s) Oral QHS every night at bedtime 0 020 Inactive Lyrica 50 mg capsule RxNorm: 232340 Take 1 Capsule(s) Oral QAM every morning 0 020 Inactive ketoconazole 2 % shampoo RxNorm: 356374 Apply Topical two times a week with showers 0 Inactive cholecalciferol (vitamin D3) 50 mcg (2,000 unit) tablet RxNorm: 106811 Take 1 Tablet(s) Oral QD 0 Inactive Zetia 10 mg tablet RxNorm: 806280 Take 1 Tablet(s) Oral QD 0 Inactive Zetia 10 mg tablet RxNorm: 690334 Take 1 Tablet(s) Oral QD 0 Inactive Lyrica 50 mg capsule RxNorm: 564954 Take 1 Capsule(s) Oral QAM every morning 0 Inactive Lyrica 100 mg capsule RxNorm: 509344 Take 1 Capsule(s) Oral QHS every night at bedtime 0 Inactive Lyrica 100 mg capsule RxNorm: 357892 Take 1 Capsule(s) Oral QHS every night at bedtime 0 Inactive Lyrica 50 mg capsule RxNorm: 070891 Take 1 Capsule(s) Oral QAM every morning [...] (suspected) exposure to covid-19[ICD10: Z20.822] Akhil Guerrero [facility] [address] [place] [address] CPT-4: 17856 06/20/2020 Plan of Care Planned Activity Notes Codes Status Date Referral: [facility] WPtel: [address], [address] [id number] [place] Referral Records Received 09/21/2022 Referral: [facility] WPtel: [address] [id number] [place] Referral Completed 05/28/2021 Referral: General Cardiology Referral Complet ed 01/03/2021 Referral: General Psychologist Referral Close d Instructions Comment Date Leonid is a?? Male being seen living at [facility]. Initial BPS visit 01/2020. PMHx including DMII, CAD w/ 5 stents, Depression, Seizure Disorder and CKD stage 3. He moved into The [facility] in 12/2019 but after a hospitalization 05/2021 he moved to the [facility] to have closer nursing attention.??Sister Jyotsna involved in his care cell# [phone]??Guardian: Don (rosalina met in person 09/01/21), now has Lexii (same group as don)Lab Schedule: * 10/06/2022
--- OUTSIDE RECORDS SUMMARY | 2022-11-09 23:12 | XMS_ITS | CCD ---
Author Name Sandra Mandujano CNP Address [address] [place] [address] Phone Organization [facility] Phone Care Team Providers Care Attorney Law Clerk Name Role Phone Tapan Shirley PA-C Primary Care Provider Unavailabl e Tapan Shirley PA-C Chronic Care Management Unavaila ble Summary Purpose DataExchange Insurance Providers Payer name Policy type / Coverage type Covered green party ID Effective Begin Date Effective End Date Medicare [place] Medicare Part B [id number] Unknown Unknown Medicaid [place] Medicare Part B [id number] Unknown Unknown Family history Runs in the family Diagnosis Age At Onset No Known Diseases N/A Social History Social History Element Codes Description Effec tive Dates Living arrangements Unknown Intermediate 09/03/[address]: 7968864 Non-Smoker / No History of Smoking 09/02/[address]: 173205782 No Alcohol Consum ption 09/02/2020 Allergies, Adverse Reactions, Alerts Substance Reaction Codes Entered Date Inactivated Date Status LISINOPRIL RxNorm: 82659 02/12/2020 No Inactive Da te Active Metformin HCl Unknown 02/12/2020 No Inactive Cristiano e Active Problems Condition Codes Effective Dates Condition St atus Anemia due to stage 3b chron ic kidney disease ICD-10: N18.32 ICD-9: 285.21 09/03/2020 Active Coronary artery disease invo lving [place] coronary artery of [place] heart, angina presence unspecified ICD-10: I25.10 ICD-9: 414.01 09/03/2020 Active Depression ICD-10: F32.9 ICD-9: 311 09/03/2020 Active Gout due to renal impairment ICD-10: M10 .30 ICD-9: 274.10 09/03/2020 Active Hyperlipidemia associated wi th type 2 diabetes mellitus ICD-10: E11.69 ICD-9: 250.80 09/03/2020 Active Learning disability ICD-10: F81.9 ICD-9: 315.2 09/03/2020 Active intermediate designer (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 insulin ICD-10: Z79.4 09/03 [...] Fill Instructions amlodipine 10 mg tablet RxNorm: 953776 Take 1 Tablet(s) Oral QD 09/04/19 21 022 Inactive aspirin 81 mg tablet,delayed release RxNorm: 364921 Take 1 Tablet(s) Oral QD 09/04/19 21 021 Inactive Levemir FlexTouch U-100 Insulin 100 unit/mL (3 mL) subcutaneous pen RxNorm: 124244 Inject 150 Unit(s) Subcutaneous BID 09/04/19 21 022 Inactive venlafaxine ER 150 mg tablet,extended release 24 hr RxNorm: 165896 Take 1 Tablet(s) Oral QD 09/04/19 21 021 Inactive clotrimazole-betame thasone 1 %-0.05 % topical cream RxNorm: 128856 Apply to rash on red area on left abdomen/chest Topical BID 08/10/19 21 Inactive amlodipine 5 mg tablet RxNorm: 607325 Take 1 Tablet(s) Oral QD 07/31/19 21 021 Inactive cephalexin 500 mg tablet RxNorm: 242754 Take 1 Tablet(s) Oral BID BID - Twice Daily 07/31/19 21 021 Inactive Start 08/01/20 pantoprazole 40 mg tablet,delayed release RxNorm: 263633 Take 1 Tablet(s) Oral QAM every morning 07/08/19 21 022 Inactive clopidogrel 75 mg tablet RxNorm: 182266 Take 1 Tablet(s) Oral QD 07/08/19 21 021 Inactive senna 8.6 mg tablet RxNorm: 742414 Take 1 Tablet(s) Oral QD 07/08/19 21 022 Inactive Novolog Flexpen U-100 Insulin aspart 100 unit/mL (3 mL) subcutaneous RxNorm: 1692109 Administer per sliding scale Milliliter(s) Subcutaneous TID 151-200: 10 u; 201-250: 20 u; 251-300: 30 u; 301-350: 40 u; 351-400: 50 u. 07/08/19 21 022 Inactive lisinopril 5 mg tablet RxNorm: 087224 Take 1 Tablet(s) Oral QD 07/08/19 21 021 Inactive Novolog Flexpen U-100 Insulin aspart 100 unit/mL (3 mL) subcutaneous RxNorm: 5579765 Inject 85 Unit(s) Subcutaneous TID 07/08/19 21 022 Inactive pravastatin 80 mg tablet RxNorm: 855668 Take 1 Tablet(s) Oral QHS every night at bedtime 07/08/19 Inactive clotrimazole 1 % topical cream RxNorm: 859965 Apply to bilateral groin areas Topical BID 07/08/19 022 Inactive metoprolol succinate ER 200 mg tablet,extended release 24 hr RxNorm: 396556 Take 1 Tablet(s) Oral QD 07/08/19 21 021 Inactive carbamazepine 200 mg tablet RxNorm: 568076 Take 1 Tablet(s) Oral BID 07/08/19 022 Inactive torsemide 20 mg tablet RxNorm: 002440 Take 1 Tablet(s) Oral QD 07/08/19 023 Inactive Blood Glucose Test strips RxNorm: Use 1 Test Strip QID at PRN 07/08/19 21 Inactive E11.42 Vitamin D3 25 mcg (1,000 unit) tablet RxNorm: 093949 Take 1 Tablet(s) Oral QD 07/08/19 021 Inactive isosorbide dinitrate 30 mg tablet RxNorm: 917394 Take 1 Tablet(s) Oral QD 07/08/19 21 021 Inactive Levemir FlexTouch U-100 Insulin 100 unit/mL (3 mL) subcutaneous pen RxNorm: 433463 Inject 140 Unit(s) Subcutaneous BID 07/08/19 21 021 Inactive venlafaxine 75 mg tablet RxNorm: 536866 Take 1 Tablet(s) Oral QD 07/08/19 21 04/19/2 021 Inactive acetaminophen 500 mg tablet RxNorm: 228850 Take 1 Tablet(s) Oral TID as needed for headache 06/18/19 21 021 Inactive acetaminophen 500 mg tablet RxNorm: 333261 Take 1 Tablet(s) Oral TID as needed for headache 06/18/19 21 021 Inactive Lyrica 100 mg capsule RxNorm: 759230 Take 1 Capsule(s) Oral QHS every night at bedtime 06/11/19 21 021 Inactive Lyrica 50 mg capsule RxNorm: 334703 Take 1 Capsule(s) Oral QAM every morning 06/10/19 21 021 Inactive hydrocortisone 2.5 % topical cream RxNorm: 346529 Apply to bilateral groin creases Topical BID 05/15/20 20 021 Inactive clotrimazole 1 % topical cream RxNorm: 332689 Apply to bilateral groin areas Topical BID 05/15/20 20 021 Inactive Lyrica 50 mg capsule RxNorm: 596917 Take 1 Capsule(s) Oral QAM every morning 05/14/20 20 020 Inactive Lyrica 100 mg capsule RxNorm: 488435 Take 1 Capsule(s) Oral QHS every night [...] Inactive Nystop 100,000 unit/gram topical powder RxNorm: 042774 Apply to abd folds, under breasts and L side of groin Topical BID x 14 days, then BID PRN 04/08/20 20 Inactive dx: yeast dermatitis Lyrica 100 mg capsule RxNorm: 601626 Take 1 Capsule(s) Oral QHS every night at bedtime 03/13/20 20 Inactive Lyrica 50 mg capsule RxNorm: 377100 Take 1 Capsule(s) Oral QAM every morning 03/13/20 Inactive ketoconazole 2 % shampoo RxNorm: 621611 Apply Topical two times a week with showers 03/11/20 20 Inactive cholecalciferol (vitamin D3) 50 mcg (2,000 unit) tablet RxNorm: 099207 Take 1 Tablet(s) Oral QD 03/11/20 Inactive Zetia 10 mg tablet RxNorm: 295956 Take 1 Tablet(s) Oral QD 03/07/20 20 Inactive Zetia 10 mg tablet RxNorm: 498003 Take 1 Tablet(s) Oral QD 03/07/20 20 Inactive Lyrica 50 mg capsule RxNorm: 314790 Take 1 Capsule(s) Oral QAM every morning 02/15/20 20 Inactive Lyrica 100 mg capsule RxNorm: 377408 Take 1 Capsule(s) Oral QHS every night at bedtime 02/15/20 20 Inactive Lyrica 100 mg capsule RxNorm: 039992 Take 1 Capsule(s) Oral QHS every night at bedtime 02/15/20 20 Inactive Lyrica 50 mg capsule RxNorm: 031336 Take 1 Capsule(s) Oral QAM every morning [...] Item Code Result Date S ervice Location [facility] [id number] 09/03/2020 Unknown PHQ9 PHQ9 [id number] 09/03/2020 Unknown Procedures Procedure Codes Date PPPS, SUBSEQ VISIT SNOMED CT: 963771277 506481 CPT-4: G0439 09/03/2020 SYS BP > OR = 140 CPT-4: G8753 09/03/2020 CUI BP LESS 90 CPT-4: G8754 09/03/2020 POS CLIN DEPRES SCRN F/U DOC SNOMED CT: 66832000 CPT-4: G8431 09/03/2020 FXNL STATUS ASSESSED CPT-4: [...] Encounter Performer Location Location Address Codes Date (77721) DOMICIL VISIT EST PAT Diagnosis: Anemia due [...] M10.30] Diagnosis: Lower extremity edema[ICD10: R60.0] Diagnosis: intermediate designer (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 insulin[ICD10: Z79.4] Diagnosis: Visit for preventive health examination[ICD10: Z00.00] Diagnosis: Coronary artery disease involving [place] coronary artery of [place] heart, angina presence unspecified[ICD10: I25.10] Sandrajessica Mandujano [facility] [address] [place] [address] CPT-4: 05547 09/03/2020 Plan of Care Planned Activity Notes Codes Status Date Referral: [facility] WPtel: [address] [id number] [place] Referral Records Received 09/21/2022 Referral: [facility] WPtel: [address] [facility] [id number] [place] Referral Completed 05/28/2021 Referral: General Cardiology Referral Complet ed 01/03/2021 Patient Education: Patient M edication Summary Completed 09/03/2020 Patient Education: Influenza Vaccine Completed 09/03/2020 Patient Education: Alzheimer''s Disease Completed 09/03/2020 Patient Education: Dementia Complete d 09/03/2020 Referral: General Psychologist Referral Close d Instructions Comment Date Leonid is a?? Male being seen living at [facility]. Initial BPS visit 01/2020. PMHx including DMII, CAD w/ 5 stents, Depression, Seizure Disorder and CKD stage 3. He moved into [facility] in 12/2019 but after a hospitalization 05/2021 he moved [facility] to have closer nursing attention.??Sister Jyotsna involved in his care cell# [phone]??Guardian: Don (tapan met in person 09/01/21), now has Lexii (same group as don)Lab Schedule: * 10/06/2022 intermediate designer (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 i nsulin Continue treatment plan per Dr. Watson.?? Gout due to renal impairment Continue Allopurinol and monitor.?? Skin tag Declined skin tag removal.?? Chronic Kidney Disease Checking CMP?? Diabetes Checking A1C.?? Reminded staff that they need to request medication changes and supplies from his corporate secretary.?? Ischemic Heart Disease I do not believe [...] their needs. Patient receives help from 24/hr shipping support. . 09/03/2020
--- OUTSIDE RECORDS SUMMARY | 2022-11-09 23:12 | XMS_ITS | CCD ---
Author Name Sandra Mandujano CNP Address [address] [facility] [address] [facility] [address] [place] [address] Phone Organization [facility] Phone Care Team Providers Care Trailer Driver Name Role Phone Rosalina Shirley PA-C Primary Care Provider Unavailabl e Rosalina Shirley PA-C Chronic Care Management Unavaila ble Summary Purpose DataExchange Insurance Providers Payer name Policy type / Coverage type Covered green party ID Effective Begin Date Effective End Date Medicare [place] Medicare Part B [id number] Unknown Unknown Medicaid [place] Medicare Part B [id number] Unknown Unknown Family History Family History data not found Allergies, Adverse Reactions, Alerts Substance Reaction Codes Entered Date Inactivated Date Status LISINOPRIL RxNorm: 95962 02/12/2020 No Inactive Da te Active Metformin HCl Unknown 02/12/2020 No Inactive Cristiano e Active Problems Condition Codes Effective Dates Condition St atus Candidiasis, intertrigo ICD-10: B37.2 ICD-9: 112.3 07/30/2020 Active Cellulitis ICD-10: L03.90 ICD-9: 682.9 07/30/2020 Active Coronary artery disease invo lving [place] coronary artery of [place] heart, angina presence unspecified ICD-10: I25.10 ICD-9: [...] palms ICD-10: L74.512 ICD-9: 705.21 05/15/2020 Active 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 ICD-10: Z79.4 05/15 [...] Fill Instructions amlodipine 5 mg tablet RxNorm: 446535 Take 1 Tablet(s) Oral QD 07/31/19 21 021 Inactive cephalexin 500 mg tablet RxNorm: 851476 Take 1 Tablet(s) Oral BID BID - Twice Daily 07/31/19 21 Inactive Start 08/01/20 pantoprazole 40 mg tablet,delayed release RxNorm: 817348 Take 1 Tablet(s) Oral QAM every morning 07/08/19 022 Inactive clopidogrel 75 mg tablet RxNorm: 844697 Take 1 Tablet(s) Oral QD 07/08/19 021 Inactive senna 8.6 mg tablet RxNorm: 321143 Take 1 Tablet(s) Oral QD 07/08/19 022 Inactive Novolog Flexpen U-100 Insulin aspart 100 unit/mL (3 mL) subcutaneous RxNorm: 1489590 Administer per sliding scale Milliliter(s) Subcutaneous TID 151-200: 10 u; 201-250: 20 u; 251-300: 30 u; 301-350: 40 u; 351-400: 50 u. 07/08/19 022 Inactive lisinopril 5 mg tablet RxNorm: 549325 Take 1 Tablet(s) Oral QD 07/08/19 021 Inactive Novolog Flexpen U-100 Insulin aspart 100 unit/mL (3 mL) subcutaneous RxNorm: 5751252 Inject 85 Unit(s) Subcutaneous TID 07/08/19 022 Inactive pravastatin 80 mg tablet RxNorm: 892968 Take 1 Tablet(s) Oral QHS every night at bedtime 07/08/19 022 Inactive clotrimazole 1 % topical cream RxNorm: 609518 Apply to bilateral groin areas Topical BID 07/08/19 022 Inactive metoprolol succinate ER 200 mg tablet,extended release 24 hr RxNorm: 910614 Take 1 Tablet(s) Oral QD 07/08/19 Inactive Vitamin D3 25 mcg (1,000 unit) tablet RxNorm: 318800 Take 1 Tablet(s) Oral QD 07/08/19 21 021 Inactive carbamazepine 200 mg tablet RxNorm: 878211 Take 1 Tablet(s) Oral BID 07/08/19 21 02/16/2 022 Inactive Levemir FlexTouch U-100 Insulin 100 unit/mL (3 mL) subcutaneous pen RxNorm: 043247 Inject 140 Unit(s) Subcutaneous BID 07/08/19 21 021 Inactive torsemide 20 mg tablet RxNorm: 974849 Take 1 Tablet(s) Oral QD 07/08/19 21 023 Inactive venlafaxine 75 mg tablet RxNorm: 646812 Take 1 Tablet(s) Oral QD 07/08/19 021 Inactive Blood Glucose Test strips RxNorm: Use 1 Test Strip QID at PRN 07/08/19 Inactive E11.42 isosorbide dinitrate 30 mg tablet RxNorm: 571978 Take 1 Tablet(s) Oral QD 07/08/19 021 Inactive acetaminophen 500 mg tablet RxNorm: 557393 Take 1 Tablet(s) Oral TID as needed for headache 06/18/19 Inactive acetaminophen 500 mg tablet RxNorm: 930669 Take 1 Tablet(s) Oral TID as needed for headache 06/18/19 021 Inactive Lyrica 100 mg capsule RxNorm: 333604 Take 1 Capsule(s) Oral QHS every night at bedtime 06/11/19 021 Inactive Lyrica 50 mg capsule RxNorm: 829284 Take 1 Capsule(s) Oral QAM every morning 06/10/19 021 Inactive hydrocortisone 2.5 % topical cream RxNorm: 092366 Apply to bilateral groin creases Topical BID 05/15/20 20 021 Inactive clotrimazole 1 % topical cream RxNorm: 240802 Apply to bilateral groin areas Topical BID 05/15/20 20 021 Inactive Lyrica 50 mg capsule RxNorm: 610137 Take 1 Capsule(s) Oral QAM every morning 05/14/20 20 Inactive Lyrica 100 mg capsule RxNorm: 478421 Take 1 Capsule(s) Oral QHS every night [...] Inactive Nystop 100,000 unit/gram topical powder RxNorm: 905110 Apply to abd folds, under breasts and L side of groin Topical BID x 14 days, then BID PRN 04/08/20 20 021 Inactive dx: yeast dermatitis Lyrica 100 mg capsule RxNorm: 612495 Take 1 Capsule(s) Oral QHS every night at bedtime 03/13/20 20 Inactive Lyrica 50 mg capsule RxNorm: 081907 Take 1 Capsule(s) Oral QAM every morning 03/13/20 20 Inactive ketoconazole 2 % shampoo RxNorm: 521412 Apply Topical two times a week with showers 03/11/20 20 Inactive cholecalciferol (vitamin D3) 50 mcg (2,000 unit) tablet RxNorm: 946152 Take 1 Tablet(s) Oral QD 03/11/20 20 021 Inactive Zetia 10 mg tablet RxNorm: 697341 Take 1 Tablet(s) Oral QD 03/07/20 20 021 Inactive Zetia 10 mg tablet RxNorm: 392978 Take 1 Tablet(s) Oral QD 03/07/20 20 Inactive Lyrica 50 mg capsule RxNorm: 397392 Take 1 Capsule(s) Oral QAM every morning 02/15/20 20 Inactive Lyrica 100 mg capsule RxNorm: 238614 Take 1 Capsule(s) Oral QHS every night at bedtime 02/15/20 20 Inactive Lyrica 100 mg capsule RxNorm: 966139 Take 1 Capsule(s) Oral QHS every night at bedtime 02/15/20 Inactive Lyrica 50 mg capsule RxNorm: 844719 Take 1 Capsule(s) Oral QAM every morning [...] Encounter Performer Location Location Address Codes Date (06503) DOMICIL VISIT EST PAT Diagnosis: Coronary artery disease involving [place] coronary artery of [place] heart, angina presence unspecified[ICD10: I25.10] Diagnosis: Cutaneous abscess of unspecified foot[ICD10: L02.619] Diagnosis: Cellulitis and abscess of foot[ICD10: L03.119] Diagnosis: Cellulitis[ICD10: L03.90] Diagnosis: Candidiasis, intertrigo[ICD10: B37.2] Diagnosis: Skin tag[ICD10: L91.8] Diagnosis: Secondary hypertension[ICD10 : I15.9] Sandra Go [facility] [address] [place] [address] CPT-4: 05234 07/30/2020 Plan of Care Planned Activity Notes Codes Status Date Referral: [facility] [place] [facility] WPtel: [address] [id number] [place] Referral Records Received 09/21/2022 Referral: [facility] WPtel: [address] [id number] [place] Referral Completed 05/28/2021 Referral: General Cardiology Referral Complet ed 01/03/2021 Patient Education: Patient M edication Summary Completed 07/30/2020 Patient Education: Influenza Vaccine Completed 07/30/2020 Referral: General Psychologist Referral Close d Instructions Comment Date Leonid is a?? Male being seen living at [facility]. Initial BPS visit 01/2020. PMHx including DMII, CAD w/ 5 stents, Depression, Seizure Disorder and CKD stage 3. He moved into [facility] in 12/2019 but after a hospitalization 05/2021 he moved to the [facility] to have closer nursing attention.??Sister Jyotsna involved in his care cell# [phone]??Guardian: Don (rosalina met in person 09/01/21), now has Lexii (same group as don)Lab Schedule: * 10/06/2022 Candidiasis, intertrigo Currently no infection, but encouraged him to shower more often (currently showers 2d/w).?? Cellulitis Treating with Keflex. Nursing to monitor. Still working on transportation to [place] [facility] consultant.?? Ischemic Heart Disease ??Monitor. Recent ER visits w/u for chest pain negative for cardiac etiology.?? Hypertension Has been stable - will monitor and if we see consistent increases we will adjust tx.?? Skin tag Patient prepped and lidocaine administered, then found the incorrect scissor in packaging so procedure DC'd.?? Will perform next month as I do not have more supplies with me.?? . 07/30/2020
--- OUTSIDE RECORDS SUMMARY | 2022-11-09 23:12 | XMS_ITS | CCD ---
Author Name Sandra Mandujano CNP Address [address] [facility] [address] [place] [address] Phone Organization [facility] Phone Care Team Providers Care Sports Physician Name Role Phone Tapan Shirley PA-C Primary Care Provider Unavailabl e Tapan Shirley PA-C Chronic Care Management Unavaila ble Summary Purpose DataExchange Insurance Providers Payer name Policy type / Coverage type Covered green party ID Effective Begin Date Effective End Date Medicare [place] Medicare Part B [id number] Unknown Unknown Medicaid [place] Medicare Part B [id number] Unknown Unknown Family History Family History data not found Allergies, Adverse Reactions, Alerts Substance Reaction Codes Entered Date Inactivated Date Status LISINOPRIL RxNorm: 91475 02/12/2020 No Inactive Da te Active Metformin [...] palms ICD-10: L74.512 ICD-9: 705.21 05/15/2020 Active prison (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 insulin ICD-10: Z79.4 05/15 Active Lower extremity edema ICD-10: R60.0 ICD-9: 782.3 05/15/2020 Active Diabetes Unknown 02/12/2020 Active Diabetes mellitus Type 2 Unknown 02/12/2020 Act annie Coronary artery disease invo lving [place] coronary artery of redd[place] heart, angina presence unspecified ICD-10: I25.10 ICD-9: [...] Instructions pantoprazole 40 mg tablet,delayed release RxNorm: 450629 Take 1 Tablet(s) Oral QAM every morning 07/08/19 21 022 Inactive clopidogrel 75 mg tablet RxNorm: 930188 Take 1 Tablet(s) Oral QD 07/08/19 021 Inactive Blood Glucose Test strips RxNorm: Use 1 Test Strip QID at PRN 07/08/19 21 Inactive E11.42 senna 8.6 mg tablet RxNorm: 939172 Take 1 Tablet(s) Oral QD 07/08/19 21 022 Inactive Novolog Flexpen U-100 Insulin aspart 100 unit/mL (3 mL) subcutaneous RxNorm: 9793029 Administer per sliding scale Milliliter(s) Subcutaneous TID 151-200: 10 u; 201-250: 20 u; 251-300: 30 u; 301-350: 40 u; 351-400: 50 u. 07/08/19 022 Inactive lisinopril 5 mg tablet RxNorm: 457833 Take 1 Tablet(s) Oral QD 07/08/19 021 Inactive Novolog Flexpen U-100 Insulin aspart 100 unit/mL (3 mL) subcutaneous RxNorm: 9359151 Inject 85 Unit(s) Subcutaneous TID 07/08/19 022 Inactive pravastatin 80 mg tablet RxNorm: 839124 Take 1 Tablet(s) Oral QHS every night at bedtime 07/08/19 022 Inactive clotrimazole 1 % topical cream RxNorm: 881739 Apply to bilateral groin areas Topical BID 07/08/19 Inactive metoprolol succinate ER 200 mg tablet,extended release 24 hr RxNorm: 287923 Take 1 Tablet(s) Oral QD 07/08/19 Inactive Vitamin D3 25 mcg (1,000 unit) tablet RxNorm: 162727 Take 1 Tablet(s) Oral QD 07/08/19 021 Inactive carbamazepine 200 mg tablet RxNorm: 446290 Take 1 Tablet(s) Oral BID 07/08/19 022 Inactive Levemir FlexTouch U-100 Insulin 100 unit/mL (3 mL) subcutaneous pen RxNorm: 044270 Inject 140 Unit(s) Subcutaneous BID 07/08/19 21 021 Inactive torsemide 20 mg tablet RxNorm: 312896 Take 1 Tablet(s) Oral QD 07/08/19 023 Inactive venlafaxine 75 mg tablet RxNorm: 716997 Take 1 Tablet(s) Oral QD 07/08/19 21 021 Inactive isosorbide dinitrate 30 mg tablet RxNorm: 614379 Take 1 Tablet(s) Oral QD 07/08/19 21 021 Inactive acetaminophen 500 mg tablet RxNorm: 058145 Take 1 Tablet(s) Oral TID as needed for headache 06/18/19 21 021 Inactive acetaminophen 500 mg tablet RxNorm: 224342 Take 1 Tablet(s) Oral TID as needed for headache 06/18/19 21 021 Inactive Lyrica 100 mg capsule RxNorm: 427224 Take 1 Capsule(s) Oral QHS every night at bedtime 06/11/19 21 021 Inactive Lyrica 50 mg capsule RxNorm: 573829 Take 1 Capsule(s) Oral QAM every morning 06/10/19 21 021 Inactive hydrocortisone 2.5 % topical cream RxNorm: 030377 Apply to bilateral groin creases Topical BID 05/15/20 20 021 Inactive clotrimazole 1 % topical cream RxNorm: 803718 Apply to bilateral groin areas Topical BID 05/15/20 20 021 Inactive Lyrica 50 mg capsule RxNorm: 144080 Take 1 Capsule(s) Oral QAM every morning 05/14/20 20 020 Inactive Lyrica 100 mg capsule RxNorm: 009734 Take 1 Capsule(s) Oral QHS every night [...] Inactive Nystop 100,000 unit/gram topical powder RxNorm: 874413 Apply to abd folds, under breasts and L side of groin Topical BID x 14 days, then BID PRN 04/08/20 20 Inactive dx: yeast dermatitis Lyrica 100 mg capsule RxNorm: 121088 Take 1 Capsule(s) Oral QHS every night at bedtime 03/13/20 Inactive Lyrica 50 mg capsule RxNorm: 387769 Take 1 Capsule(s) Oral QAM every morning 03/13/20 Inactive ketoconazole 2 % shampoo RxNorm: 148432 Apply Topical two times a week with showers 03/11/20 20 Inactive cholecalciferol (vitamin D3) 50 mcg (2,000 unit) tablet RxNorm: 098008 Take 1 Tablet(s) Oral QD 03/11/20 20 Inactive Zetia 10 mg tablet RxNorm: 788446 Take 1 Tablet(s) Oral QD 03/07/20 20 021 Inactive Zetia 10 mg tablet RxNorm: 562239 Take 1 Tablet(s) Oral QD 03/07/20 20 Inactive Lyrica 50 mg capsule RxNorm: 734382 Take 1 Capsule(s) Oral QAM every morning 02/15/20 20 Inactive Lyrica 100 mg capsule RxNorm: 981539 Take 1 Capsule(s) Oral QHS every night at bedtime 02/15/20 Inactive Lyrica 100 mg capsule RxNorm: 993429 Take 1 Capsule(s) Oral QHS every night at bedtime 02/15/20 20 Inactive Lyrica 50 mg capsule RxNorm: 900899 Take 1 Capsule(s) Oral QAM every morning [...] Encounter Performer Location Location Address Codes Date (93274) DOMICIL VISIT EST PAT Diagnosis: Chronic kidney [...] L21.0] Diagnosis: Skin tag[ICD10: L91.8] Sandra Mandujano [facility] [address] [place] [address] CPT-4: 23085 07/08/2020 Plan of Care Planned Activity Notes Codes Status Date Referral: [facility] WPtel: [address], [address] [id number] Referral Records Received 09/21/2022 Referral: [facility] WPtel: [address] [id number] [place] Referral Completed 05/28/2021 Referral: General Cardiology Referral Complet ed 01/03/2021 Patient Education: Patient M edication Summary Completed 07/08/2020 Patient Education: Alzheimer''s Disease Completed 07/08/2020 Patient Education: Influenza Vaccine Completed 07/08/2020 Patient Education: Dementia Complete d 07/08/2020 Referral: General Psychologist Referral Close d Instructions Comment Date Leonid is a?? Male being seen living at [facility]. Initial BPS visit 01/2020. PMHx including DMII, CAD w/ 5 stents, Depression, Seizure Disorder and CKD stage 3. He moved into [facility] in 12/2019 but after a hospitalization 05/2021 he moved to the [facility] to have closer nursing attention.??Sister Jyotsna involved in his care cell# [phone]??Guardian: Don (tapan met in person 09/01/21), now [...] remove when I see him next month.?? . 07/08/2020
--- OUTSIDE RECORDS SUMMARY | 2022-11-09 23:13 | XMS_ITS | CCD ---
Author Name Unknown Organization Unknown Care Team Providers Care Buttermaker Helper Name Role Phone Tapan Shirley PA-C Primary Care Provider Unavailabl e Tapan Shirley PA-C Chronic Care Management Unavaila ble Summary Purpose DataExchange Insurance Providers Payer name Policy type / Coverage type Covered libertarian ID Effective Begin Date Effective End Date Medicare [place] Medicare Part B [id number] Unknown Unknown Medicaid [place] Medicare Part B [id number] Unknown Unknown Family history Runs in the family Diagnosis Age At Onset No Known Diseases N/A Social History Social History Element Codes Description Effec tive Dates Living arrangements Unknown Custodial 09/03/[address]: 8914106 Non-Smoker / No History of Smoking 09/02/[address]: 606090510 No Alcohol Consum ption 09/02/2020 Allergies, Adverse Reactions, Alerts Substance Reaction Codes Entered Date Inactivated Date Status LISINOPRIL RxNorm: 11113 02/12/2020 No Inactive Da te Active Metformin HCl Unknown 02/12/2020 No Inactive Cristiano e Active Problems Condition Codes Effective Dates Condition St atus Anemia due to stage 3b chron ic kidney disease ICD-10: N18.32 ICD-9: 285.21 09/03/2020 Active Coronary artery disease invo lving [place] coronary artery of [place] heart, angina presence unspecified ICD-10: I25.10 ICD-9: [...] Instructions icosapent ethyl 1 gram capsule RxNorm: 1039072 Take 2 Capsule(s) (2 gm) Oral BID with meals 09/12/19 Inactive Okay to dispense one 2gm tab if you have that available. icosapent ethyl 1 gram capsule RxNorm: 4384455 Take 2 Capsule(s) Oral BID 09/12/19 021 Inactive Okay to dispense one 2gm tab if you have that available. amlodipine 10 mg tablet RxNorm: 418901 Take 1 Tablet(s) Oral QD 09/04/19 Inactive aspirin 81 mg tablet,delayed release RxNorm: 513733 Take 1 Tablet(s) Oral QD 09/04/19 021 Inactive Levemir FlexTouch U-100 Insulin 100 unit/mL (3 mL) subcutaneous pen RxNorm: 200304 Inject 150 Unit(s) Subcutaneous BID 09/04/19 022 Inactive venlafaxine ER 150 mg tablet,extended release 24 hr RxNorm: 850053 Take 1 Tablet(s) Oral QD 09/04/19 Inactive clotrimazole-betame thasone 1 %-0.05 % topical cream RxNorm: 327106 Apply to rash on red area on left abdomen/chest Topical BID 08/10/19 Inactive amlodipine 5 mg tablet RxNorm: 655110 Take 1 Tablet(s) Oral QD 07/31/19 21 Inactive cephalexin 500 mg tablet RxNorm: 145650 Take 1 Tablet(s) Oral BID BID - Twice Daily 07/31/19 021 Inactive Start 08/01/20 pantoprazole 40 mg tablet,delayed release RxNorm: 543839 Take 1 Tablet(s) Oral QAM every morning 07/08/19 21 022 Inactive clopidogrel 75 mg tablet RxNorm: 061817 Take 1 Tablet(s) Oral QD 07/08/19 21 021 Inactive senna 8.6 mg tablet RxNorm: 095377 Take 1 Tablet(s) Oral QD 07/08/19 21 022 Inactive Novolog Flexpen U-100 Insulin aspart 100 unit/mL (3 mL) subcutaneous RxNorm: 5498583 Administer per sliding scale Milliliter(s) Subcutaneous TID 151-200: 10 u; 201-250: 20 u; 251-300: 30 u; 301-350: 40 u; 351-400: 50 u. 07/08/19 21 022 Inactive lisinopril 5 mg tablet RxNorm: 818799 Take 1 Tablet(s) Oral QD 07/08/19 21 021 Inactive Novolog Flexpen U-100 Insulin aspart 100 unit/mL (3 mL) subcutaneous RxNorm: 4099035 Inject 85 Unit(s) Subcutaneous TID 07/08/19 21 022 Inactive pravastatin 80 mg tablet RxNorm: 460355 Take 1 Tablet(s) Oral QHS every night at bedtime 07/08/19 022 Inactive clotrimazole 1 % topical cream RxNorm: 163179 Apply to bilateral groin areas Topical BID 07/08/19 022 Inactive metoprolol succinate ER 200 mg tablet,extended release 24 hr RxNorm: 615419 Take 1 Tablet(s) Oral QD 07/08/19 021 Inactive carbamazepine 200 mg tablet RxNorm: 560609 Take 1 Tablet(s) Oral BID 07/08/19 022 Inactive torsemide 20 mg tablet RxNorm: 100364 Take 1 Tablet(s) Oral QD 07/08/19 21 023 Inactive Blood Glucose Test strips RxNorm: Use 1 Test Strip QID at PRN 07/08/19 21 021 Inactive E11.42 Vitamin D3 25 mcg (1,000 unit) tablet RxNorm: 148776 Take 1 Tablet(s) Oral QD 07/08/19 21 021 Inactive isosorbide dinitrate 30 mg tablet RxNorm: 750746 Take 1 Tablet(s) Oral QD 07/08/19 21 021 Inactive Levemir FlexTouch U-100 Insulin 100 unit/mL (3 mL) subcutaneous pen RxNorm: 996101 Inject 140 Unit(s) Subcutaneous BID 07/08/19 21 021 Inactive venlafaxine 75 mg tablet RxNorm: 935039 Take 1 Tablet(s) Oral QD 07/08/19 21 Inactive acetaminophen 500 mg tablet RxNorm: 429937 Take 1 Tablet(s) Oral TID as needed for headache 06/18/19 21 Inactive acetaminophen 500 mg tablet RxNorm: 303463 Take 1 Tablet(s) Oral TID as needed for headache 06/18/19 21 021 Inactive Lyrica 100 mg capsule RxNorm: 946158 Take 1 Capsule(s) Oral QHS every night at bedtime 06/11/19 Inactive Lyrica 50 mg capsule RxNorm: 066998 Take 1 Capsule(s) Oral QAM every morning 06/10/19 21 Inactive hydrocortisone 2.5 % topical cream RxNorm: 134484 Apply to bilateral groin creases Topical BID 05/15/20 20 021 Inactive clotrimazole 1 % topical cream RxNorm: 302250 Apply to bilateral groin areas Topical BID 05/15/20 20 021 Inactive Lyrica 50 mg capsule RxNorm: 444609 Take 1 Capsule(s) Oral QAM every morning 05/14/20 20 020 Inactive Lyrica 100 mg capsule RxNorm: 213499 Take 1 Capsule(s) Oral QHS every night [...] Inactive Nystop 100,000 unit/gram topical powder RxNorm: 392311 Apply to abd folds, under breasts and L side of groin Topical BID x 14 days, then BID PRN 04/08/20 20 Inactive dx: yeast dermatitis Lyrica 100 mg capsule RxNorm: 255026 Take 1 Capsule(s) Oral QHS every night at bedtime 03/13/20 20 Inactive Lyrica 50 mg capsule RxNorm: 035253 Take 1 Capsule(s) Oral QAM every morning 03/13/20 20 Inactive ketoconazole 2 % shampoo RxNorm: 034016 Apply Topical two times a week with showers 03/11/20 20 Inactive cholecalciferol (vitamin D3) 50 mcg (2,000 unit) tablet RxNorm: 127220 Take 1 Tablet(s) Oral QD 03/11/20 20 Inactive Zetia 10 mg tablet RxNorm: 228647 Take 1 Tablet(s) Oral QD 03/07/20 20 021 Inactive Zetia 10 mg tablet RxNorm: 231929 Take 1 Tablet(s) Oral QD 03/07/20 20 Inactive Lyrica 50 mg capsule RxNorm: 532705 Take 1 Capsule(s) Oral QAM every morning 02/15/20 20 Inactive Lyrica 100 mg capsule RxNorm: 822838 Take 1 Capsule(s) Oral QHS every night at bedtime 02/15/20 20 Inactive Lyrica 100 mg capsule RxNorm: 422103 Take 1 Capsule(s) Oral QHS every night at bedtime 02/15/20 20 Inactive Lyrica 50 mg capsule RxNorm: 411666 Take 1 Capsule(s) Oral QAM every morning [...] of [facility] WPtel: [address], [address] [id number] [place] Referral Records Received 09/21/2022 Referral: [facility] WPtel: [address] [id number] [place] Referral Completed 05/28/2021 Referral: General Cardiology [...] attention.??Sister Jyotsna involved in his care cell# [phone]??Guardian: Don (tapan met in person 09/01/21), now has Lexii (same group as don)Lab Schedule: * 10/06/2022
--- OUTSIDE RECORDS SUMMARY | 2022-11-09 23:13 | XMS_ITS | CCD ---
Author Name Sandra Mandujano CNP Address [address] [place] [address] Phone Organization [facility] Phone Care Team Providers Care Help Desk Manager Name Role Phone Tapan Shirley PA-C Primary Care Provider Unavailabl e Tapan Shirley PA-C Chronic Care Management Unavaila ble Summary Purpose DataExchange Insurance Providers Payer name Policy type / Coverage type Covered democrat ID Effective Begin Date Effective End Date Medicare [place] Medicare Part B [id number] Unknown Unknown Medicaid [place] Medicare Part B [id number] Unknown Unknown Family history Runs in the family Diagnosis Age At Onset No Known Diseases N/A Social History Social History Element Codes Description Effec tive Dates Living arrangements Unknown Retirement 09/03/[address]: 9800303 Non-Smoker / No History of Smoking 09/02/[address]: 722215726 No Alcohol Consum ption 09/02/2020 Allergies, Adverse Reactions, Alerts Substance Reaction Codes Entered Date Inactivated Date Status LISINOPRIL RxNorm: 86915 02/12/2020 No Inactive Da te Active Metformin [...] 10/01/2020 Resolved Coronary artery disease invo lving [place] coronary artery of [place] heart, angina presence unspecified ICD-10: I25.10 ICD-9: 414.01 09/03/2020 Active Depression ICD-10: F32.9 ICD-9: 311 09/03/2020 Active Gout due to renal impairment ICD-10: M10 .30 ICD-9: 274.10 09/03/2020 Active Learning disability ICD-10: F81.9 ICD-9: 315.2 09/03/2020 Active skilled nursing (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 insulin ICD-10: Z79.4 09/03 [...] Fill Instructions lisinopril 10 mg tablet RxNorm: 085050 Take 1 Tablet(s) Oral QD 10/02/19 21 021 Inactive icosapent ethyl 1 gram capsule RxNorm: 4174481 Take 2 Capsule(s) (2 gm) Oral BID with meals 09/12/19 022 Inactive Okay to dispense one 2gm tab if you have that available. icosapent ethyl 1 gram capsule RxNorm: 8070950 Take 2 Capsule(s) Oral BID 09/12/19 21 021 Inactive Okay to dispense one 2gm tab if you have that available. amlodipine 10 mg tablet RxNorm: 836443 Take 1 Tablet(s) Oral QD 09/04/19 022 Inactive aspirin 81 mg tablet,delayed release RxNorm: 799547 Take 1 Tablet(s) Oral QD 09/04/19 21 021 Inactive Levemir FlexTouch U-100 Insulin 100 unit/mL (3 mL) subcutaneous pen RxNorm: 664100 Inject 150 Unit(s) Subcutaneous BID 09/04/19 21 022 Inactive venlafaxine ER 150 mg tablet,extended release 24 hr RxNorm: 868495 Take 1 Tablet(s) Oral QD 09/04/19 21 021 Inactive clotrimazole-betame thasone 1 %-0.05 % topical cream RxNorm: 811471 Apply to rash on red area on left abdomen/chest Topical BID 08/10/19 21 021 Inactive amlodipine 5 mg tablet RxNorm: 921650 Take 1 Tablet(s) Oral QD 07/31/19 21 021 Inactive cephalexin 500 mg tablet RxNorm: 713951 Take 1 Tablet(s) Oral BID BID - Twice Daily 07/31/19 021 Inactive Start 08/01/20 pantoprazole 40 mg tablet,delayed release RxNorm: 988968 Take 1 Tablet(s) Oral QAM every morning 07/08/19 022 Inactive clopidogrel 75 mg tablet RxNorm: 794017 Take 1 Tablet(s) Oral QD 07/08/19 021 Inactive senna 8.6 mg tablet RxNorm: 117821 Take 1 Tablet(s) Oral QD 07/08/19 022 Inactive Novolog Flexpen U-100 Insulin aspart 100 unit/mL (3 mL) subcutaneous RxNorm: 3069204 Administer per sliding scale Milliliter(s) Subcutaneous TID 151-200: 10 u; 201-250: 20 u; 251-300: 30 u; 301-350: 40 u; 351-400: 50 u. 07/08/19 022 Inactive Novolog Flexpen U-100 Insulin aspart 100 unit/mL (3 mL) subcutaneous RxNorm: 8987491 Inject 85 Unit(s) Subcutaneous TID 07/08/19 022 Inactive pravastatin 80 mg tablet RxNorm: 109153 Take 1 Tablet(s) Oral QHS every night at bedtime 07/08/19 022 Inactive clotrimazole 1 % topical cream RxNorm: 185838 Apply to bilateral groin areas Topical BID 07/08/19 022 Inactive metoprolol succinate ER 200 mg tablet,extended release 24 hr RxNorm: 757600 Take 1 Tablet(s) Oral QD 07/08/19 021 Inactive carbamazepine 200 mg tablet RxNorm: 401933 Take 1 Tablet(s) Oral BID 07/08/19 21 022 Inactive torsemide 20 mg tablet RxNorm: 957734 Take 1 Tablet(s) Oral QD 07/08/19 21 023 Inactive Blood Glucose Test strips RxNorm: Use 1 Test Strip QID at PRN 02/22 Inactive E11.42 lisinopril 5 mg tablet RxNorm: 710664 Take 1 Tablet(s) Oral QD 07/08/19 Inactive Vitamin D3 25 mcg (1,000 unit) tablet RxNorm: 057461 Take 1 Tablet(s) Oral QD 07/08/19 Inactive isosorbide dinitrate 30 mg tablet RxNorm: 390824 Take 1 Tablet(s) Oral QD 07/08/19 Inactive Levemir FlexTouch U-100 Insulin 100 unit/mL (3 mL) subcutaneous pen RxNorm: 399051 Inject 140 Unit(s) Subcutaneous BID 07/08/19 Inactive venlafaxine 75 mg tablet RxNorm: 296478 Take 1 Tablet(s) Oral QD 07/08/19 Inactive acetaminophen 500 mg tablet RxNorm: 349337 Take 1 Tablet(s) Oral TID as needed for headache 06/18/19 Inactive acetaminophen 500 mg tablet RxNorm: 282935 Take 1 Tablet(s) Oral TID as needed for headache 06/18/19 Inactive Lyrica 100 mg capsule RxNorm: 618283 Take 1 Capsule(s) Oral QHS every night at bedtime 06/11/19 Inactive Lyrica 50 mg capsule RxNorm: 413564 Take 1 Capsule(s) Oral QAM every morning 06/10/19 021 Inactive hydrocortisone 2.5 % topical cream RxNorm: 402976 Apply to bilateral groin creases Topical BID 05/15/20 20 Inactive clotrimazole 1 % topical cream RxNorm: 602435 Apply to bilateral groin areas Topical BID 05/15/20 20 Inactive Lyrica 50 mg capsule RxNorm: 659862 Take 1 Capsule(s) Oral QAM every morning 05/14/20 20 Inactive Lyrica 100 mg capsule RxNorm: 750550 Take 1 Capsule(s) Oral QHS every night [...] Inactive Nystop 100,000 unit/gram topical powder RxNorm: 380860 Apply to abd folds, under breasts and L side of groin Topical BID x 14 days, then BID PRN 04/08/20 20 021 Inactive dx: yeast dermatitis Lyrica 100 mg capsule RxNorm: 731671 Take 1 Capsule(s) Oral QHS every night at bedtime 03/13/20 20 Inactive Lyrica 50 mg capsule RxNorm: 419894 Take 1 Capsule(s) Oral QAM every morning 03/13/20 20 Inactive ketoconazole 2 % shampoo RxNorm: 767480 Apply Topical two times a week with showers 03/11/20 20 Inactive cholecalciferol (vitamin D3) 50 mcg (2,000 unit) tablet RxNorm: 448963 Take 1 Tablet(s) Oral QD 03/11/20 20 021 Inactive Zetia 10 mg tablet RxNorm: 529160 Take 1 Tablet(s) Oral QD 03/07/20 20 021 Inactive Zetia 10 mg tablet RxNorm: 373721 Take 1 Tablet(s) Oral QD 03/07/20 20 Inactive Lyrica 50 mg capsule RxNorm: 988100 Take 1 Capsule(s) Oral QAM every morning 02/15/20 20 10/01/2 020 Inactive Lyrica 100 mg capsule RxNorm: 706176 Take 1 Capsule(s) Oral QHS every night at bedtime 02/15/20 20 020 Inactive Lyrica 100 mg capsule RxNorm: 841935 Take 1 Capsule(s) Oral QHS every night at bedtime 02/15/20 20 020 Inactive Lyrica 50 mg capsule RxNorm: 696309 Take 1 Capsule(s) Oral QAM every morning [...] Encounter Performer Location Location Address Codes Date (44406) DOMICIL VISIT EST PAT Diagnosis: Hyperlipidemia associated [...] N50.9] Diagnosis: Secondary hypertension[ICD10: I15.9] Sandra Mandujano [facility] [address] [place] [address] CPT-4: 83469 10/01/2020 Plan of Care Planned Activity Notes Codes Status Date Referral: [facility] WPtel: [address] [id number] [place] Referral Records Received 09/21/2022 Referral: [facility] WPtel: [address] [id number] [place] Referral Completed 05/28/2021 Referral: General Cardiology Referral Complet ed 01/03/2021 Patient Education: Patient M edication Summary Completed 10/01/2020 Patient Education: Influenza Vaccine Completed 10/01/2020 Referral: General Psychologist Referral Close d Instructions Comment Date Leonid is a?? Male being seen living at [facility]. Initial BPS visit 01/2020. PMHx including DMII, CAD w/ 5 stents, Depression, Seizure Disorder and CKD stage 3. He moved into [facility] in 12/2019 but after a hospitalization 05/2021 he moved to the [facility] to have closer nursing attention.??Sister Jyotsna involved in his care cell# [phone]??Guardian: Don (tapan met in person 09/01/21), now has Lexii (same group as don)Lab Schedule: /September* 10/06/2022 Chronic Kidney Disease Anemia 2/2 CKD [...] a staff member be present for the [facility] RN treatment sessions.?? . 10/01/2020
--- OUTSIDE RECORDS SUMMARY | 2022-11-09 23:13 | XMS_ITS | CCD ---
Author Name Unknown Organization Unknown Care Team Providers Care Philatelic Consultant Name Role Phone Tapan Shirley PA-C Primary Care Provider Unavailabl e Tapan Shirley PA-C Chronic Care Management Unavaila ble Summary Purpose DataExchange Insurance Providers Payer name Policy type / Coverage type Covered green party ID Effective Begin Date Effective End Date Medicare [place] Medicare Part B [id number] Unknown Unknown Medicaid [place] Medicare Part B [id number] Unknown Unknown Family history Runs in the family Diagnosis Age At Onset No Known Diseases N/A Social History Social History Element Codes Description Effec tive Dates Living arrangements Unknown Fdc 09/03/[address]: 6025444 Non-Smoker / No History of Smoking 09/02/[address]: 184353891 No Alcohol Consum ption 09/02/2020 Allergies, Adverse Reactions, Alerts Substance Reaction Codes Entered Date Inactivated Date Status LISINOPRIL RxNorm: 85371 02/12/2020 No Inactive Da te Active Metformin [...] 10/01/2020 Resolved Coronary artery disease invo lving [place] coronary artery of [place] heart, angina presence unspecified ICD-10: I25.10 ICD-9: 414.01 09/03/2020 Active Depression ICD-10: F32.9 ICD-9: 311 09/03/2020 Active Gout due to renal impairment ICD-10: M10 .30 ICD-9: 274.10 09/03/2020 Active Learning disability ICD-10: F81.9 ICD-9: 315.2 09/03/2020 Active [facility] (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 insulin ICD-10: Z79.4 09/03 [...] Fill Instructions lisinopril 20 mg tablet RxNorm: 191790 Take 1 Tablet(s) Oral QD 10/23/19 21 021 Inactive lisinopril 20 mg tablet RxNorm: 153513 Take 1 Tablet(s) Oral QD 10/23/19 21 Inactive lisinopril 10 mg tablet RxNorm: 258812 Take 1 Tablet(s) Oral QD 10/02/19 Inactive icosapent ethyl 1 gram capsule RxNorm: 6447401 Take 2 Capsule(s) (2 gm) Oral BID with meals 09/12/19 022 Inactive Okay to dispense one 2gm tab if you have that available. icosapent ethyl 1 gram capsule RxNorm: 6440522 Take 2 Capsule(s) Oral BID 09/12/19 021 Inactive Okay to dispense one 2gm tab if you have that available. amlodipine 10 mg tablet RxNorm: 503653 Take 1 Tablet(s) Oral QD 09/04/19 022 Inactive aspirin 81 mg tablet,delayed release RxNorm: 585743 Take 1 Tablet(s) Oral QD 09/04/19 21 Inactive Levemir FlexTouch U-100 Insulin 100 unit/mL (3 mL) subcutaneous pen RxNorm: 509108 Inject 150 Unit(s) Subcutaneous BID 09/04/19 21 022 Inactive venlafaxine ER 150 mg tablet,extended release 24 hr RxNorm: 101144 Take 1 Tablet(s) Oral QD 09/04/19 21 021 Inactive clotrimazole-betame thasone 1 %-0.05 % topical cream RxNorm: 924224 Apply to rash on red area on left abdomen/chest Topical BID 08/10/19 21 Inactive amlodipine 5 mg tablet RxNorm: 588244 Take 1 Tablet(s) Oral QD 07/31/19 21 Inactive cephalexin 500 mg tablet RxNorm: 141114 Take 1 Tablet(s) Oral BID BID - Twice Daily 07/31/19 21 Inactive Start 08/01/20 pantoprazole 40 mg tablet,delayed release RxNorm: 105930 Take 1 Tablet(s) Oral QAM every morning 07/08/19 022 Inactive clopidogrel 75 mg tablet RxNorm: 739823 Take 1 Tablet(s) Oral QD 07/08/19 Inactive senna 8.6 mg tablet RxNorm: 431974 Take 1 Tablet(s) Oral QD 07/08/19 022 Inactive Novolog Flexpen U-100 Insulin aspart 100 unit/mL (3 mL) subcutaneous RxNorm: 1791233 Administer per sliding scale Milliliter(s) Subcutaneous TID 151-200: 10 u; 201-250: 20 u; 251-300: 30 u; 301-350: 40 u; 351-400: 50 u. 07/08/19 21 Inactive Novolog Flexpen U-100 Insulin aspart 100 unit/mL (3 mL) subcutaneous RxNorm: 1716515 Inject 85 Unit(s) Subcutaneous TID 07/08/19 022 Inactive pravastatin 80 mg tablet RxNorm: 509039 Take 1 Tablet(s) Oral QHS every night at bedtime 07/08/19 022 Inactive clotrimazole 1 % topical cream RxNorm: 514211 Apply to bilateral groin areas Topical BID 07/08/19 022 Inactive metoprolol succinate ER 200 mg tablet,extended release 24 hr RxNorm: 313441 Take 1 Tablet(s) Oral QD 07/08/19 21 021 Inactive carbamazepine 200 mg tablet RxNorm: 196901 Take 1 Tablet(s) Oral BID 07/08/19 21 022 Inactive torsemide 20 mg tablet RxNorm: 760066 Take 1 Tablet(s) Oral QD 07/08/19 21 023 Inactive Blood Glucose Test strips RxNorm: Use 1 Test Strip QID at PRN 07/08/19 21 Inactive E11.42 lisinopril 5 mg tablet RxNorm: 988058 Take 1 Tablet(s) Oral QD 07/08/19 Inactive Vitamin D3 25 mcg (1,000 unit) tablet RxNorm: 475745 Take 1 Tablet(s) Oral QD 07/08/19 021 Inactive isosorbide dinitrate 30 mg tablet RxNorm: 043421 Take 1 Tablet(s) Oral QD 07/08/19 021 Inactive Levemir FlexTouch U-100 Insulin 100 unit/mL (3 mL) subcutaneous pen RxNorm: 373709 Inject 140 Unit(s) Subcutaneous BID 07/08/19 Inactive venlafaxine 75 mg tablet RxNorm: 042188 Take 1 Tablet(s) Oral QD 07/08/19 021 Inactive acetaminophen 500 mg tablet RxNorm: 215964 Take 1 Tablet(s) Oral TID as needed for headache 06/18/19 021 Inactive acetaminophen 500 mg tablet RxNorm: 015336 Take 1 Tablet(s) Oral TID as needed for headache 06/18/19 Inactive Lyrica 100 mg capsule RxNorm: 316820 Take 1 Capsule(s) Oral QHS every night at bedtime 06/11/19 021 Inactive Lyrica 50 mg capsule RxNorm: 132059 Take 1 Capsule(s) Oral QAM every morning 06/10/19 21 021 Inactive hydrocortisone 2.5 % topical cream RxNorm: 298353 Apply to bilateral groin creases Topical BID 05/15/20 20 021 Inactive clotrimazole 1 % topical cream RxNorm: 245526 Apply to bilateral groin areas Topical BID 05/15/20 20 021 Inactive Lyrica 50 mg capsule RxNorm: 166580 Take 1 Capsule(s) Oral QAM every morning 05/14/20 20 020 Inactive Lyrica 100 mg capsule RxNorm: 463624 Take 1 Capsule(s) Oral QHS every night [...] Inactive Nystop 100,000 unit/gram topical powder RxNorm: 708702 Apply to abd folds, under breasts and L side of groin Topical BID x 14 days, then BID PRN 04/08/20 20 021 Inactive dx: yeast dermatitis Lyrica 100 mg capsule RxNorm: 172554 Take 1 Capsule(s) Oral QHS every night at bedtime 03/13/20 20 Inactive Lyrica 50 mg capsule RxNorm: 805195 Take 1 Capsule(s) Oral QAM every morning 03/13/20 20 Inactive ketoconazole 2 % shampoo RxNorm: 630127 Apply Topical two times a week with showers 03/11/20 20 Inactive cholecalciferol (vitamin D3) 50 mcg (2,000 unit) tablet RxNorm: 647427 Take 1 Tablet(s) Oral QD 03/11/20 20 Inactive Zetia 10 mg tablet RxNorm: 036114 Take 1 Tablet(s) Oral QD 03/07/20 20 021 Inactive Zetia 10 mg tablet RxNorm: 744109 Take 1 Tablet(s) Oral QD 03/07/20 20 Inactive Lyrica 50 mg capsule RxNorm: 056792 Take 1 Capsule(s) Oral QAM every morning 02/15/20 20 Inactive Lyrica 100 mg capsule RxNorm: 076791 Take 1 Capsule(s) Oral QHS every night at bedtime 02/15/20 20 020 Inactive Lyrica 100 mg capsule RxNorm: 908874 Take 1 Capsule(s) Oral QHS every night at bedtime 02/15/20 Inactive Lyrica 50 mg capsule RxNorm: 443106 Take 1 Capsule(s) Oral QAM every morning [...] [facility] WPtel: [address] , [address] [id number] [place] Referral Records Received 09/21/2022 Referral: [facility] WPtel: [address] [id number] [place] Referral Completed 05/28/2021 Referral: General Cardiology [...] [facility] to have [facility] nursing attention.??Sister Jyotsna involved in his care cell# [phone]??Guardian: Don (tapan met in person 09/01/21), now has Lexii (same group as don)Lab Schedule: * 10/06/2022
--- OUTSIDE RECORDS SUMMARY | 2022-11-09 23:14 | XMS_ITS | CCD ---
Author Name Sandra Mandujano CNP Address [address] [place] [address] Phone Organization [facility] Phone Care Team Providers Care Landscape Photographer Name Role Phone Rosalina Shirley PA-C Primary Care Provider Unavailabl e Rosalina Shirley PA-C Chronic Care Management Unavaila ble Summary Purpose DataExchange Insurance Providers Payer name Policy type / Coverage type Covered green party ID Effective Begin Date Effective End Date Medicare [place] Medicare Part B [id number] Unknown Unknown Medicaid [place] Medicare Part B [id number] Unknown Unknown Family history Runs in the family Diagnosis Age At Onset No Known Diseases N/A Social History Social History Element Codes Description Effec tive Dates Living arrangements Unknown Snf 09/03/[address]: 8571277 Non-Smoker / No History of Smoking 09/02/[address]: 154001335 No Alcohol Consum ption 09/02/2020 Allergies, Adverse Reactions, Alerts Substance Reaction Codes Entered Date Inactivated Date Status LISINOPRIL RxNorm: 43935 02/12/2020 No Inactive Da te Active Metformin [...] 10/01/2020 Resolved Coronary artery disease invo lving [place] coronary artery of [place] heart, angina presence unspecified ICD-10: I25.10 ICD-9: 414.01 09/03/2020 Active Depression ICD-10: F32.9 ICD-9: 311 09/03/2020 Active Gout due to renal impairment ICD-10: M10 .30 ICD-9: 274.10 09/03/2020 Active Learning disability ICD-10: F81.9 ICD-9: 315.2 09/03/2020 Active 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 icosapent ethyl 1 gram capsule RxNorm: 6290250 Take 2 Capsule(s) Oral BID 09/12/19 21 021 Inactive Okay to dispense one 2gm tab if you have that available. amlodipine 10 mg tablet RxNorm: 212222 Take 1 Tablet(s) Oral QD 09/04/19 022 Inactive aspirin 81 mg tablet,delayed release RxNorm: 078015 Take 1 Tablet(s) Oral QD 09/04/19 21 021 Inactive Levemir FlexTouch U-100 Insulin 100 unit/mL (3 mL) subcutaneous pen RxNorm: 809656 Inject 150 Unit(s) Subcutaneous BID 09/04/19 Inactive venlafaxine ER 150 mg tablet,extended release 24 hr RxNorm: 227049 Take 1 Tablet(s) Oral QD 09/04/19 Inactive clotrimazole-betame thasone 1 %-0.05 % topical cream RxNorm: 424615 Apply to rash on red area on left abdomen/chest Topical BID 08/10/19 Inactive amlodipine 5 mg tablet RxNorm: 127273 Take 1 Tablet(s) Oral QD 07/31/19 Inactive cephalexin 500 mg tablet RxNorm: 169690 Take 1 Tablet(s) Oral BID BID - Twice Daily 07/31/19 Inactive Start 08/01/20 pantoprazole 40 mg tablet,delayed release RxNorm: 358217 Take 1 Tablet(s) Oral QAM every morning 07/08/19 Inactive clopidogrel 75 mg tablet RxNorm: 900677 Take 1 Tablet(s) Oral QD 07/08/19 Inactive senna 8.6 mg tablet RxNorm: 873867 Take 1 Tablet(s) Oral QD 07/08/19 Inactive Novolog Flexpen U-100 Insulin aspart 100 unit/mL (3 mL) subcutaneous RxNorm: 2380828 Administer per sliding scale Milliliter(s) Subcutaneous TID 151-200: 10 u; 201-250: 20 u; 251-300: 30 u; 301-350: 40 u; 351-400: 50 u. 07/08/19 21 Inactive Novolog Flexpen U-100 Insulin aspart 100 unit/mL (3 mL) subcutaneous RxNorm: 5887190 Inject 85 Unit(s) Subcutaneous TID 07/08/19 Inactive pravastatin 80 mg tablet RxNorm: 536821 Take 1 Tablet(s) Oral QHS every night at bedtime 07/08/19 Inactive clotrimazole 1 % topical cream RxNorm: 010935 Apply to bilateral groin areas Topical BID 07/08/19 21 10/04/2 022 Inactive carbamazepine 200 mg tablet RxNorm: 903183 Take 1 Tablet(s) Oral BID 07/08/19 022 Inactive torsemide 20 mg tablet RxNorm: 469749 Take 1 Tablet(s) Oral QD 07/08/19 023 Inactive Blood Glucose Test strips RxNorm: Use 1 Test Strip QID at PRN 07/08/19 21 021 Inactive E11.42 lisinopril 5 mg tablet RxNorm: 952344 Take 1 Tablet(s) Oral QD 07/08/19 021 Inactive metoprolol succinate ER 200 mg tablet,extended release 24 hr RxNorm: 817342 Take 1 Tablet(s) Oral QD 07/08/19 Inactive Vitamin D3 25 mcg (1,000 unit) tablet RxNorm: 993485 Take 1 Tablet(s) Oral QD 07/08/19 021 Inactive isosorbide dinitrate 30 mg tablet RxNorm: 321042 Take 1 Tablet(s) Oral QD 07/08/19 021 Inactive Levemir FlexTouch U-100 Insulin 100 unit/mL (3 mL) subcutaneous pen RxNorm: 991042 Inject 140 Unit(s) Subcutaneous BID 07/08/19 Inactive venlafaxine 75 mg tablet RxNorm: 512205 Take 1 Tablet(s) Oral QD 07/08/19 021 Inactive acetaminophen 500 mg tablet RxNorm: 081293 Take 1 Tablet(s) Oral TID as needed for headache 06/18/19 021 Inactive acetaminophen 500 mg tablet RxNorm: 142890 Take 1 Tablet(s) Oral TID as needed for headache 06/18/19 021 Inactive Lyrica 100 mg capsule RxNorm: 492088 Take 1 Capsule(s) Oral QHS every night at bedtime 06/11/19 021 Inactive Lyrica 50 mg capsule RxNorm: 912521 Take 1 Capsule(s) Oral QAM every morning 06/10/19 021 Inactive hydrocortisone 2.5 % topical cream RxNorm: 655003 Apply to bilateral groin creases Topical BID 05/15/20 20 021 Inactive clotrimazole 1 % topical cream RxNorm: 689555 Apply to bilateral groin areas Topical BID 05/15/20 20 Inactive Lyrica 50 mg capsule RxNorm: 479619 Take 1 Capsule(s) Oral QAM every morning 05/14/20 20 Inactive Lyrica 100 mg capsule RxNorm: 249227 Take 1 Capsule(s) Oral QHS every night [...] Inactive Nystop 100,000 unit/gram topical powder RxNorm: 054241 Apply to abd folds, under breasts and L side of groin Topical BID x 14 days, then BID PRN 04/08/20 20 021 Inactive dx: yeast dermatitis Lyrica 100 mg capsule RxNorm: 534261 Take 1 Capsule(s) Oral QHS every night at bedtime 03/13/20 20 Inactive Lyrica 50 mg capsule RxNorm: 939234 Take 1 Capsule(s) Oral QAM every morning 03/13/20 20 Inactive ketoconazole 2 % shampoo RxNorm: 328824 Apply Topical two times a week with showers 03/11/20 20 Inactive cholecalciferol (vitamin D3) 50 mcg (2,000 unit) tablet RxNorm: 794780 Take 1 Tablet(s) Oral QD 03/11/20 Inactive Zetia 10 mg tablet RxNorm: 948155 Take 1 Tablet(s) Oral QD 03/07/20 021 Inactive Zetia 10 mg tablet RxNorm: 442142 Take 1 Tablet(s) Oral QD 03/07/20 Inactive Lyrica 50 mg capsule RxNorm: 750664 Take 1 Capsule(s) Oral QAM every morning 02/15/20 Inactive Lyrica 100 mg capsule RxNorm: 772773 Take 1 Capsule(s) Oral QHS every night at bedtime 02/15/20 Inactive Lyrica 100 mg capsule RxNorm: 314172 Take 1 Capsule(s) Oral QHS every night at bedtime 02/15/20 Inactive Lyrica 50 mg capsule RxNorm: 262134 Take 1 Capsule(s) Oral QAM every morning [...] Encounter Performer Location Location Address Codes Date (11207) DOMICIL VISIT EST PAT Diagnosis: Candidiasis, intertrigo[ICD10: B37.2] Diagnosis: Scrotal skin lesion[ICD10: N50.9] Diagnosis: Secondary hypertension[ICD10: I15.9] Diagnosis: Inappropriate sexual behavior[ICD10: Z72.89] Sandra Madnujano [facility] [address] [place] [address] CPT-4: 90192 10/29/2020 Plan of Care Planned Activity Notes Codes Status Date Referral: [facility] WPtel: [address] [id number] [place] Referral Records Received 09/21/2022 Referral: [facility] WPtel: [address] [id number] [place] Referral Completed 05/28/2021 Referral: General Cardiology Referral Complet ed 01/03/2021 Patient Education: Patient M edication Summary Completed 10/29/2020 Patient Education: Influenza Vaccine Completed 10/29/2020 Referral: General Psychologist Referral Close d Instructions Comment Date Leonid is a?? Male being seen living at [facility]. Initial BPS visit 01/2020. PMHx including DMII, CAD w/ 5 stents, Depression, Seizure Disorder and CKD stage 3. He moved into [facility] in 12/2019 but after a hospitalization 05/2021 he moved to the [facility] to have closer nursing attention.??Sister Jyotsna involved in his care cell# [phone]??Guardian: Don (rosalina met in person 09/01/21), now has Lexii (same group as don)Lab Schedule: * 10/06/2022 Inappropriate sexual behavio r Recommend conference - I am happy to attend.?? Recommend he and Tammy (facility nurse) speak with his assistant case manager regarding more appropriate accommodations with male staff.?? Candidiasis, intertrigo Improved. Monitor.?? Patient needs assistance with cares. His obesity and large pannus prevents him from doing good hygiene cares on his own. Recommend home sends over male staff and/or have two staff members present.?? Hypertension Increasing Lisinopril again?? Scrotal skin lesion Resolved.?? . 10/29/2020
--- OUTSIDE RECORDS SUMMARY | 2022-11-09 23:14 | XMS_ITS | CCD ---
Author Name Unknown Organization Unknown Care Team Providers Care Ticketing Agent Name Role Phone Tapan Shirley PA-C Primary Care Provider Unavailabl e Tapan Shirley PA-C Chronic Care Management Unavaila ble Summary Purpose DataExchange Insurance Providers Payer name Policy type / Coverage type Covered alliance party ID Effective Begin Date Effective End Date Medicare [place] Part B [id number] Unknown Unknown Medicaid [place] Medicare Part B [id number] Unknown Unknown Family history Runs in the family Diagnosis Age At Onset No Known Diseases N/A Social History Social History Element Codes Description Effec tive Dates Living arrangements Unknown Retirement 09/03/[address]: 0181187 Non-Smoker / No History of Smoking 09/02/[address]: 051218444 No Alcohol Consum ption 09/02/2020 Allergies, Adverse Reactions, Alerts Substance Reaction Codes Entered Date Inactivated Date Status LISINOPRIL RxNorm: 32697 02/12/2020 No Inactive Da te Active Metformin [...] 10/01/2020 Resolved Coronary artery disease invo lving [place] coronary artery of [place] heart, angina presence unspecified ICD-10: I25.10 ICD-9: 414.01 09/03/2020 Active Depression ICD-10: F32.9 ICD-9: 311 09/03/2020 Active Gout due to renal impairment ICD-10: M10 .30 ICD-9: 274.10 09/03/2020 Active Learning disability ICD-10: F81.9 ICD-9: 315.2 09/03/2020 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 icosapent ethyl 1 gram capsule RxNorm: 8775381 Take 2 Capsule(s) Oral BID 09/12/19 21 021 Inactive Okay to dispense one 2gm tab if you have that available. amlodipine 10 mg tablet RxNorm: 401089 Take 1 Tablet(s) Oral QD 09/04/19 21 022 Inactive aspirin 81 mg tablet,delayed release RxNorm: 512247 Take 1 Tablet(s) Oral QD 09/04/19 21 021 Inactive Levemir FlexTouch U-100 Insulin 100 unit/mL (3 mL) subcutaneous pen RxNorm: 848992 Inject 150 Unit(s) Subcutaneous BID 09/04/1906/11/2 022 Inactive venlafaxine ER 150 mg tablet,extended release 24 hr RxNorm: 753801 Take 1 Tablet(s) Oral QD 09/04/19 Inactive clotrimazole-betame thasone 1 %-0.05 % topical cream RxNorm: 163079 Apply to rash on red area on left abdomen/chest Topical BID 08/10/19 Inactive amlodipine 5 mg tablet RxNorm: 481403 Take 1 Tablet(s) Oral QD 07/31/19 Inactive cephalexin 500 mg tablet RxNorm: 918010 Take 1 Tablet(s) Oral BID BID - Twice Daily 07/31/19 Inactive Start 08/01/20 pantoprazole 40 mg tablet,delayed release RxNorm: 168562 Take 1 Tablet(s) Oral QAM every morning 07/08/19 Inactive clopidogrel 75 mg tablet RxNorm: 779547 Take 1 Tablet(s) Oral QD 07/08/19 Inactive senna 8.6 mg tablet RxNorm: 909682 Take 1 Tablet(s) Oral QD 07/08/19 Inactive Novolog Flexpen U-100 Insulin aspart 100 unit/mL (3 mL) subcutaneous RxNorm: 4658524 Administer per sliding scale Milliliter(s) Subcutaneous TID 151-200: 10 u; 201-250: 20 u; 251-300: 30 u; 301-350: 40 u; 351-400: 50 u. 07/08/19 Inactive Novolog Flexpen U-100 Insulin aspart 100 unit/mL (3 mL) subcutaneous RxNorm: 3248490 Inject 85 Unit(s) Subcutaneous TID 07/08/19 Inactive pravastatin 80 mg tablet RxNorm: 476765 Take 1 Tablet(s) Oral QHS every night at bedtime 07/08/19 Inactive clotrimazole 1 % topical cream RxNorm: 914289 Apply to bilateral groin areas Topical BID 07/08/19 21 Inactive carbamazepine 200 mg tablet RxNorm: 465271 Take 1 Tablet(s) Oral BID 07/08/19 21 022 Inactive torsemide 20 mg tablet RxNorm: 018449 Take 1 Tablet(s) Oral QD 07/08/19 21 023 Inactive Blood Glucose Test strips RxNorm: Use 1 Test Strip QID at PRN 07/08/19 21 021 Inactive E11.42 lisinopril 5 mg tablet RxNorm: 307338 Take 1 Tablet(s) Oral QD 07/08/19 021 Inactive metoprolol succinate ER 200 mg tablet,extended release 24 hr RxNorm: 451404 Take 1 Tablet(s) Oral QD 07/08/19 21 021 Inactive Vitamin D3 25 mcg (1,000 unit) tablet RxNorm: 881949 Take 1 Tablet(s) Oral QD 07/08/19 021 Inactive isosorbide dinitrate 30 mg tablet RxNorm: 566782 Take 1 Tablet(s) Oral QD 07/08/19 021 Inactive Levemir FlexTouch U-100 Insulin 100 unit/mL (3 mL) subcutaneous pen RxNorm: 218179 Inject 140 Unit(s) Subcutaneous BID 07/08/19 021 Inactive venlafaxine 75 mg tablet RxNorm: 930004 Take 1 Tablet(s) Oral QD 07/08/19 021 Inactive acetaminophen 500 mg tablet RxNorm: 994261 Take 1 Tablet(s) Oral TID as needed for headache 06/18/19 021 Inactive acetaminophen 500 mg tablet RxNorm: 273083 Take 1 Tablet(s) Oral TID as needed for headache 06/18/19 21 021 Inactive Lyrica 100 mg capsule RxNorm: 858511 Take 1 Capsule(s) Oral QHS every night at bedtime 06/11/19 021 Inactive Lyrica 50 mg capsule RxNorm: 430252 Take 1 Capsule(s) Oral QAM every morning 06/10/19 21 021 Inactive hydrocortisone 2.5 % topical cream RxNorm: 915905 Apply to bilateral groin creases Topical BID 05/15/20 20 021 Inactive clotrimazole 1 % topical cream RxNorm: 741077 Apply to bilateral groin areas Topical BID 05/15/20 20 Inactive Lyrica 50 mg capsule RxNorm: 463544 Take 1 Capsule(s) Oral QAM every morning 05/14/20 20 020 Inactive Lyrica 100 mg capsule RxNorm: 134386 Take 1 Capsule(s) Oral QHS every night [...] Inactive Nystop 100,000 unit/gram topical powder RxNorm: 924210 Apply to abd folds, under breasts and L side of groin Topical BID x 14 days, then BID PRN 04/08/20 20 021 Inactive dx: yeast dermatitis Lyrica 100 mg capsule RxNorm: 919295 Take 1 Capsule(s) Oral QHS every night at bedtime 03/13/20 20 Inactive Lyrica 50 mg capsule RxNorm: 508806 Take 1 Capsule(s) Oral QAM every morning 03/13/20 20 Inactive ketoconazole 2 % shampoo RxNorm: 202432 Apply Topical two times a week with showers 03/11/20 20 Inactive cholecalciferol (vitamin D3) 50 mcg (2,000 unit) tablet RxNorm: 404794 Take 1 Tablet(s) Oral QD 03/11/20 021 Inactive Zetia 10 mg tablet RxNorm: 822823 Take 1 Tablet(s) Oral QD 03/07/20 021 Inactive Zetia 10 mg tablet RxNorm: 840756 Take 1 Tablet(s) Oral QD 03/07/20 Inactive Lyrica 50 mg capsule RxNorm: 487182 Take 1 Capsule(s) Oral QAM every morning 02/15/20 Inactive Lyrica 100 mg capsule RxNorm: 111651 Take 1 Capsule(s) Oral QHS every night at bedtime 02/15/20 Inactive Lyrica 100 mg capsule RxNorm: 270380 Take 1 Capsule(s) Oral QHS every night at bedtime 02/15/20 Inactive Lyrica 50 mg capsule RxNorm: 455709 Take 1 Capsule(s) Oral QAM every morning [...] [facility] WPtel: [address], [address] [id number] [place] Referral Records Received 09/21/2022 Referral: [facility] WPtel: [address] [id number] [place] Referral Completed 05/28/2021 Referral: General Cardiology Referral Complet ed 01/03/2021 Referral: General Psychologist Referral Close d Instructions Comment Date Leonid is a?? Male being seen living at [facility]. Initial BPS visit 01/2020. PMHx including DMII, CAD w/ 5 stents, Depression, Seizure Disorder and CKD stage 3. He moved into [facility] in 12/2019 but after a hospitalization 05/2021 he moved to the [facility] to have closer nursing attention.??Sister Jyotsna involved in his care cell# [phone]??Guardian: Don (tapan met in person 09/01/21), now has Lexii (same group as don)Lab Schedule: * 10/06/2022
--- OUTSIDE RECORDS SUMMARY | 2022-11-09 23:14 | XMS_ITS | CCD ---
Author Name Unknown Organization Unknown Care Team Providers Care Window Systems Administrator Name Role Phone Tapan Shirley PA-C Primary Care Provider Unavailabl e Tapan Shirley PA-C Chronic Care Management Unavaila ble Summary Purpose DataExchange Insurance Providers Payer name Policy type / Coverage type Covered constitution party ID Effective Begin Date Effective End Date Medicare [place] Medicare Part B [id number] Unknown Unknown Medicaid [place] Medicare Part B [id number] Unknown Unknown Family history Runs in the family Diagnosis Age At Onset No Known Diseases N/A Social History Social History Element Codes Description Effec tive Dates Living arrangements Unknown Shelter 09/03/[address]: 5817354 Non-Smoker / No History of Smoking 09/02/[address]: 863104981 No Alcohol Consum ption 09/02/2020 Allergies, Adverse Reactions, Alerts Substance Reaction Codes Entered Date Inactivated Date Status LISINOPRIL RxNorm: 45251 02/12/2020 No Inactive Da te Active Metformin [...] 10/01/2020 Resolved Coronary artery disease invo lving [place] coronary artery of [place] heart, angina presence unspecified ICD-10: I25.10 ICD-9: 414.01 09/03/2020 Active Depression ICD-10: F32.9 ICD-9: 311 09/03/2020 Active Gout due to renal impairment ICD-10: M10 .30 ICD-9: 274.10 09/03/2020 Active Learning disability ICD-10: F81.9 ICD-9: 315.2 09/03/2020 Active senior care (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 insulin ICD-10: Z79.4 09/03 [...] Inactive E11.42 lisinopril 30 mg tablet RxNorm: 173680 Take 1 Tablet(s) Oral QD 10/30/19 021 Inactive lisinopril 20 mg tablet RxNorm: 060976 Take 1 Tablet(s) Oral QD 10/23/19 21 021 Inactive lisinopril 20 mg tablet RxNorm: 974880 Take 1 Tablet(s) Oral QD 10/23/19 21 021 Inactive lisinopril 10 mg tablet RxNorm: 331435 Take 1 Tablet(s) Oral QD 10/02/19 021 Inactive icosapent ethyl 1 gram capsule RxNorm: 1843339 Take 2 Capsule(s) (2 gm) Oral BID with meals 09/12/19 022 Inactive Okay to dispense one 2gm tab if you have that available. icosapent ethyl 1 gram capsule RxNorm: 1401818 Take 2 Capsule(s) Oral BID 09/12/19 21 021 Inactive Okay to dispense one 2gm tab if you have that available. amlodipine 10 mg tablet RxNorm: 588935 Take 1 Tablet(s) Oral QD 09/04/19 21 022 Inactive aspirin 81 mg tablet,delayed release RxNorm: 978408 Take 1 Tablet(s) Oral QD 09/04/19 21 021 Inactive Levemir FlexTouch U-100 Insulin 100 unit/mL (3 mL) subcutaneous pen RxNorm: 453683 Inject 150 Unit(s) Subcutaneous BID 09/04/19 Inactive venlafaxine ER 150 mg tablet,extended release 24 hr RxNorm: 933752 Take 1 Tablet(s) Oral QD 09/04/19 Inactive clotrimazole-betame thasone 1 %-0.05 % topical cream RxNorm: 413900 Apply to rash on red area on left abdomen/chest Topical BID 08/10/19 Inactive amlodipine 5 mg tablet RxNorm: 781497 Take 1 Tablet(s) Oral QD 07/31/19 Inactive cephalexin 500 mg tablet RxNorm: 482723 Take 1 Tablet(s) Oral BID BID - Twice Daily 07/31/19 Inactive Start 08/01/20 pantoprazole 40 mg tablet,delayed release RxNorm: 139184 Take 1 Tablet(s) Oral QAM every morning 07/08/19 Inactive clopidogrel 75 mg tablet RxNorm: 831194 Take 1 Tablet(s) Oral QD 07/08/19 Inactive senna 8.6 mg tablet RxNorm: 316754 Take 1 Tablet(s) Oral QD 07/08/19 Inactive Novolog Flexpen U-100 Insulin aspart 100 unit/mL (3 mL) subcutaneous RxNorm: 3321024 Administer per sliding scale Milliliter(s) Subcutaneous TID 151-200: 10 u; 201-250: 20 u; 251-300: 30 u; 301-350: 40 u; 351-400: 50 u. 07/08/19 21 Inactive Novolog Flexpen U-100 Insulin aspart 100 unit/mL (3 mL) subcutaneous RxNorm: 2841528 Inject 85 Unit(s) Subcutaneous TID 07/08/19 Inactive pravastatin 80 mg tablet RxNorm: 185543 Take 1 Tablet(s) Oral QHS every night at bedtime 07/08/19 Inactive clotrimazole 1 % topical cream RxNorm: 101088 Apply to bilateral groin areas Topical BID 07/08/19 21 022 Inactive carbamazepine 200 mg tablet RxNorm: 527669 Take 1 Tablet(s) Oral BID 07/08/19 21 022 Inactive torsemide 20 mg tablet RxNorm: 137005 Take 1 Tablet(s) Oral QD 07/08/19 21 023 Inactive Blood Glucose Test strips RxNorm: Use 1 Test Strip QID at PRN 07/08/19 21 021 Inactive E11.42 lisinopril 5 mg tablet RxNorm: 673407 Take 1 Tablet(s) Oral QD 07/08/19 021 Inactive metoprolol succinate ER 200 mg tablet,extended release 24 hr RxNorm: 932442 Take 1 Tablet(s) Oral QD 07/08/19 021 Inactive Vitamin D3 25 mcg (1,000 unit) tablet RxNorm: 787208 Take 1 Tablet(s) Oral QD 07/08/19 021 Inactive isosorbide dinitrate 30 mg tablet RxNorm: 534265 Take 1 Tablet(s) Oral QD 07/08/19 021 Inactive Levemir FlexTouch U-100 Insulin 100 unit/mL (3 mL) subcutaneous pen RxNorm: 416715 Inject 140 Unit(s) Subcutaneous BID 07/08/19 021 Inactive venlafaxine 75 mg tablet RxNorm: 777413 Take 1 Tablet(s) Oral QD 07/08/19 021 Inactive acetaminophen 500 mg tablet RxNorm: 487284 Take 1 Tablet(s) Oral TID as needed for headache 06/18/19 021 Inactive acetaminophen 500 mg tablet RxNorm: 952897 Take 1 Tablet(s) Oral TID as needed for headache 06/18/19 021 Inactive Lyrica 100 mg capsule RxNorm: 453647 Take 1 Capsule(s) Oral QHS every night at bedtime 06/11/19 021 Inactive Lyrica 50 mg capsule RxNorm: 113002 Take 1 Capsule(s) Oral QAM every morning 06/10/19 21 Inactive hydrocortisone 2.5 % topical cream RxNorm: 596908 Apply to bilateral groin creases Topical BID 05/15/20 20 021 Inactive clotrimazole 1 % topical cream RxNorm: 479922 Apply to bilateral groin areas Topical BID 05/15/20 20 021 Inactive Lyrica 50 mg capsule RxNorm: 171610 Take 1 Capsule(s) Oral QAM every morning 05/14/20 20 Inactive Lyrica 100 mg capsule RxNorm: 348546 Take 1 Capsule(s) Oral QHS every night [...] Inactive Nystop 100,000 unit/gram topical powder RxNorm: 694138 Apply to abd folds, under breasts and L side of groin Topical BID x 14 days, then BID PRN 04/08/20 20 021 Inactive dx: yeast dermatitis Lyrica 100 mg capsule RxNorm: 292264 Take 1 Capsule(s) Oral QHS every night at bedtime 03/13/20 20 Inactive Lyrica 50 mg capsule RxNorm: 457314 Take 1 Capsule(s) Oral QAM every morning 03/13/20 20 Inactive ketoconazole 2 % shampoo RxNorm: 192777 Apply Topical two times a week with showers 03/11/20 20 Inactive cholecalciferol (vitamin D3) 50 mcg (2,000 unit) tablet RxNorm: 423704 Take 1 Tablet(s) Oral QD 03/11/20 Inactive Zetia 10 mg tablet RxNorm: 603611 Take 1 Tablet(s) Oral QD 03/07/20 20 Inactive Zetia 10 mg tablet RxNorm: 896886 Take 1 Tablet(s) Oral QD 03/07/20 Inactive Lyrica 50 mg capsule RxNorm: 410398 Take 1 Capsule(s) Oral QAM every morning 02/15/20 Inactive Lyrica 100 mg capsule RxNorm: 093205 Take 1 Capsule(s) Oral QHS every night at bedtime 02/15/20 Inactive Lyrica 100 mg capsule RxNorm: 608401 Take 1 Capsule(s) Oral QHS every night at bedtime 02/15/20 Inactive Lyrica 50 mg capsule RxNorm: 679371 Take 1 Capsule(s) Oral QAM every morning [...] Status Date Referral: [facility] [place] [facility] WPtel: [address], [address] [id number] Referral Records Received 09/21/2022 Referral: [facility] WPtel: [address] [id number] [place] Referral Completed 05/28/2021 Referral: General Cardiology [...] [facility] to [facility] nursing attention.??Sister Jyotsna involved in his care cell# [phone]??Guardian: Don (tapan met in person 09/01/21), now has Lexii (same group as don)Lab Schedule: * 10/06/2022
--- OUTSIDE RECORDS SUMMARY | 2022-11-09 23:15 | XMS_ITS | CCD ---
Author Name Unknown Organization Unknown Care Team Providers Care Fireman Name Role Phone Tapan Shirley PA-C Primary Care Provider Unavailabl e Tapan Shirley PA-C Chronic Care Management Unavaila ble Summary Purpose DataExchange Insurance Providers Payer name Policy type / Coverage type Covered green party ID Effective Begin Date Effective End Date Medicare [place] Medicare Part B [id number] Unknown Unknown Medicaid [place] Medicare Part B [id number] Unknown Unknown Family history Runs in the family Diagnosis Age At Onset No Known Diseases N/A Social History Social History Element Codes Description Effec tive Dates Living arrangements Unknown Residential 09/03/[address]: 3648083 Non-Smoker / No History of Smoking 09/02/[address]: 249153119 No Alcohol Consum ption 09/02/2020 Allergies, Adverse Reactions, Alerts Substance Reaction Codes Entered Date Inactivated Date Status LISINOPRIL RxNorm: 08123 02/12/2020 No Inactive Da te Active Metformin HCl Unknown 02/12/2020 No Inactive Cristiano e Active Problems Condition Codes Effective Dates Condition St atus Callus of heel ICD-10: L84 ICD-9: 700 12/03/2020 Active Coronary artery disease invo lving [place] coronary artery of [place] heart, angina presence unspecified ICD-10: I25.10 ICD-9: [...] disability ICD-10: F81.9 ICD-9: 315.2 09/03/2020 Active 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 ICD-10: Z79.4 09/03 [...] Fill Instructions Lyrica 50 mg capsule RxNorm: 085982 Take 1 Capsule(s) Oral QAM every morning 12/24/19 21 021 Inactive Lyrica 100 mg capsule RxNorm: 004028 Take 1 Capsule(s) Oral QHS every night at bedtime 12/24/19 21 021 Inactive clotrimazole 1 % topical cream RxNorm: 718827 Apply to right foot and toes Topical BID 12/04/19 21 023 Inactive metoprolol succinate ER 200 mg tablet,extended release 24 hr RxNorm: 704616 Take 1 Tablet(s) Oral QD 12/04/19 21 023 Inactive ciprofloxacin 500 mg tablet RxNorm: 342727 Take 1 Tablet(s) Oral QD 11/30/19 21 021 Inactive DX ofloxacin otic drops Accu-Chek Guide test strips RxNorm: USE 1 TO CHECK GLUCOSE 4 TIMES DAILY AND NEEDED 11/15/19 21 023 Inactive Blood Glucose Test strips RxNorm: Use 1 Test Strip QID at PRN 11/05/19 21 023 Inactive E11.42 lisinopril 30 mg tablet RxNorm: 514213 Take 1 Tablet(s) Oral QD 10/30/19 21 021 Inactive lisinopril 20 mg tablet RxNorm: 684587 Take 1 Tablet(s) Oral QD 10/23/19 21 021 Inactive lisinopril 20 mg tablet RxNorm: 884284 Take 1 Tablet(s) Oral QD 10/23/19 21 021 Inactive lisinopril 10 mg tablet RxNorm: 412591 Take 1 Tablet(s) Oral QD 10/02/19 021 Inactive icosapent ethyl 1 gram capsule RxNorm: 5618693 Take 2 Capsule(s) (2 gm) Oral BID with meals 09/12/19 022 Inactive Okay to dispense one 2gm tab if you have that available. icosapent ethyl 1 gram capsule RxNorm: 8794492 Take 2 Capsule(s) Oral BID 09/12/19 021 Inactive Okay to dispense one 2gm tab if you have that available. amlodipine 10 mg tablet RxNorm: 612401 Take 1 Tablet(s) Oral QD 09/04/19 022 Inactive aspirin 81 mg tablet,delayed release RxNorm: 383024 Take 1 Tablet(s) Oral QD 09/04/19 21 021 Inactive Levemir FlexTouch U-100 Insulin 100 unit/mL (3 mL) subcutaneous pen RxNorm: 391217 Inject 150 Unit(s) Subcutaneous BID 09/04/19 21 022 Inactive venlafaxine ER 150 mg tablet,extended release 24 hr RxNorm: 830676 Take 1 Tablet(s) Oral QD 09/04/19 21 021 Inactive clotrimazole-betame thasone 1 %-0.05 % topical cream RxNorm: 247089 Apply to rash on red area on left abdomen/chest Topical BID 08/10/19 21 Inactive amlodipine 5 mg tablet RxNorm: 201610 Take 1 Tablet(s) Oral QD 07/31/19 21 Inactive cephalexin 500 mg tablet RxNorm: 698693 Take 1 Tablet(s) Oral BID BID - Twice Daily 07/31/19 21 021 Inactive Start 08/01/20 pantoprazole 40 mg tablet,delayed release RxNorm: 490068 Take 1 Tablet(s) Oral QAM every morning 07/08/19 022 Inactive clopidogrel 75 mg tablet RxNorm: 999691 Take 1 Tablet(s) Oral QD 07/08/19 021 Inactive senna 8.6 mg tablet RxNorm: 130565 Take 1 Tablet(s) Oral QD 07/08/19 022 Inactive Novolog Flexpen U-100 Insulin aspart 100 unit/mL (3 mL) subcutaneous RxNorm: 5935370 Administer per sliding scale Milliliter(s) Subcutaneous TID 151-200: 10 u; 201-250: 20 u; 251-300: 30 u; 301-350: 40 u; 351-400: 50 u. 07/08/19 022 Inactive Novolog Flexpen U-100 Insulin aspart 100 unit/mL (3 mL) subcutaneous RxNorm: 2587785 Inject 85 Unit(s) Subcutaneous TID 07/08/19 022 Inactive pravastatin 80 mg tablet RxNorm: 629910 Take 1 Tablet(s) Oral QHS every night at bedtime 07/08/19 022 Inactive clotrimazole 1 % topical cream RxNorm: 578421 Apply to bilateral groin areas Topical BID 07/08/19 Inactive carbamazepine 200 mg tablet RxNorm: 422446 Take 1 Tablet(s) Oral BID 07/08/19 022 Inactive torsemide 20 mg tablet RxNorm: 240771 Take 1 Tablet(s) Oral QD 07/08/19 21 023 Inactive Blood Glucose Test strips RxNorm: Use 1 Test Strip QID at PRN 07/08/19 21 021 Inactive E11.42 lisinopril 5 mg tablet RxNorm: 038292 Take 1 Tablet(s) Oral QD 07/08/19 021 Inactive metoprolol succinate ER 200 mg tablet,extended release 24 hr RxNorm: 462903 Take 1 Tablet(s) Oral QD 07/08/19 21 021 Inactive Vitamin D3 25 mcg (1,000 unit) tablet RxNorm: 650941 Take 1 Tablet(s) Oral QD 07/08/19 21 Inactive isosorbide dinitrate 30 mg tablet RxNorm: 195635 Take 1 Tablet(s) Oral QD 07/08/19 Inactive Levemir FlexTouch U-100 Insulin 100 unit/mL (3 mL) subcutaneous pen RxNorm: 961535 Inject 140 Unit(s) Subcutaneous BID 07/08/19 21 Inactive venlafaxine 75 mg tablet RxNorm: 849512 Take 1 Tablet(s) Oral QD 07/08/19 Inactive acetaminophen 500 mg tablet RxNorm: 833137 Take 1 Tablet(s) Oral TID as needed for headache 06/18/19 Inactive acetaminophen 500 mg tablet RxNorm: 986896 Take 1 Tablet(s) Oral TID as needed for headache 06/18/19 Inactive Lyrica 100 mg capsule RxNorm: 679911 Take 1 Capsule(s) Oral QHS every night at bedtime 06/11/19 021 Inactive Lyrica 50 mg capsule RxNorm: 301095 Take 1 Capsule(s) Oral QAM every morning 06/10/19 21 021 Inactive hydrocortisone 2.5 % topical cream RxNorm: 203920 Apply to bilateral groin creases Topical BID 05/15/20 20 021 Inactive clotrimazole 1 % topical cream RxNorm: 664158 Apply to bilateral groin areas Topical BID 05/15/20 20 021 Inactive Lyrica 50 mg capsule RxNorm: 479135 Take 1 Capsule(s) Oral QAM every morning 05/14/20 20 Inactive Lyrica 100 mg capsule RxNorm: 672024 Take 1 Capsule(s) Oral QHS every night [...] Inactive Nystop 100,000 unit/gram topical powder RxNorm: 085400 Apply to abd folds, under breasts and L side of groin Topical BID x 14 days, then BID PRN 04/08/20 20 Inactive dx: yeast dermatitis Lyrica 100 mg capsule RxNorm: 064443 Take 1 Capsule(s) Oral QHS every night at bedtime 03/13/20 20 Inactive Lyrica 50 mg capsule RxNorm: 760547 Take 1 Capsule(s) Oral QAM every morning 03/13/20 20 Inactive ketoconazole 2 % shampoo RxNorm: 300376 Apply Topical two times a week with showers 03/11/20 20 Inactive cholecalciferol (vitamin D3) 50 mcg (2,000 unit) tablet RxNorm: 430398 Take 1 Tablet(s) Oral QD 03/11/20 20 Inactive Zetia 10 mg tablet RxNorm: 517888 Take 1 Tablet(s) Oral QD 03/07/20 20 021 Inactive Zetia 10 mg tablet RxNorm: 223948 Take 1 Tablet(s) Oral QD 03/07/20 20 Inactive Lyrica 50 mg capsule RxNorm: 654197 Take 1 Capsule(s) Oral QAM every morning 02/15/20 20 Inactive Lyrica 100 mg capsule RxNorm: 625220 Take 1 Capsule(s) Oral QHS every night at bedtime 02/15/20 20 Inactive Lyrica 100 mg capsule RxNorm: 234470 Take 1 Capsule(s) Oral QHS every night at bedtime 02/15/20 20 Inactive Lyrica 50 mg capsule RxNorm: 073368 Take 1 Capsule(s) Oral QAM every morning [...] Codes Status Date Referral: [facility] WPtel: [address], [address] [id number] [place] Referral Records Received 09/21/2022 Referral: [facility] WPtel: [address] [id number] [place] Referral Completed 05/28/2021 Referral: General Cardiology [...] a hospitalization 05/2021 he moved to the [facility] to have closer nursing attention.??Sister Jyotsna involved in his care cell# [phone]??Guardian: Don (tapan met in person 09/01/21), now has Lexii (same group as don)Lab Schedule: * 10/06/2022
--- OUTSIDE RECORDS SUMMARY | 2022-11-09 23:15 | XMS_ITS | CCD ---
Author Name Sandra Mandujano CNP Address [address] [place] [address] Phone Organization [facility] Phone Care Team Providers Care Perl Software Engineer Name Role Phone Tapan Shirley PA-C Primary Care Provider Unavailabl e Tapan Shirley PA-C Chronic Care Management Unavaila ble Summary Purpose DataExchange Insurance Providers Payer name Policy type / Coverage type Covered libertarian ID Effective Begin Date Effective End Date Medicare [place] Medicare Part B [id number] Unknown Unknown Medicaid [place] Medicare Part B [id number] Unknown Unknown Family history Runs in the family Diagnosis Age At Onset No Known Diseases N/A Social History Social History Element Codes Description Effec tive Dates Living arrangements Unknown Chcf 09/03/[address]: 5941367 Non-Smoker / No History of Smoking 09/02/[address]: 102645678 No Alcohol Consum ption 09/02/2020 Allergies, Adverse Reactions, Alerts Substance Reaction Codes Entered Date Inactivated Date Status LISINOPRIL RxNorm: 80724 02/12/2020 No Inactive Da te Active Metformin HCl Unknown 02/12/2020 No Inactive Cristiano e Active Problems Condition Codes Effective Dates Condition St atus Callus of heel ICD-10: L84 ICD-9: 700 12/03/2020 Active Coronary artery disease invo lving [place] coronary artery of [place] heart, angina presence unspecified ICD-10: I25.10 ICD-9: [...] disability ICD-10: F81.9 ICD-9: 315.2 09/03/2020 Active residential (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 insulin ICD-10: Z79.4 09/03 [...] Instructions clotrimazole 1 % topical cream RxNorm: 893201 Apply to right foot and toes Topical BID 12/04/19 21 023 Inactive metoprolol succinate ER 200 mg tablet,extended release 24 hr RxNorm: 983779 Take 1 Tablet(s) Oral QD 12/04/19 21 023 Inactive ciprofloxacin 500 mg tablet RxNorm: 673474 Take 1 Tablet(s) Oral QD 11/30/19 21 021 Inactive DX ofloxacin otic drops Accu-Chek Guide test strips RxNorm: USE 1 TO CHECK GLUCOSE 4 TIMES DAILY AND NEEDED 11/15/19 21 023 Inactive Blood Glucose Test strips RxNorm: Use 1 Test Strip QID at PRN 11/05/19 21 023 Inactive E11.42 lisinopril 30 mg tablet RxNorm: 355599 Take 1 Tablet(s) Oral QD 10/30/19 21 021 Inactive lisinopril 20 mg tablet RxNorm: 154832 Take 1 Tablet(s) Oral QD 10/23/19 21 021 Inactive lisinopril 20 mg tablet RxNorm: 305766 Take 1 Tablet(s) Oral QD 10/23/19 21 021 Inactive lisinopril 10 mg tablet RxNorm: 981953 Take 1 Tablet(s) Oral QD 10/02/19 21 021 Inactive icosapent ethyl 1 gram capsule RxNorm: 9632248 Take 2 Capsule(s) (2 gm) Oral BID with meals 09/12/19 022 Inactive Okay to dispense one 2gm tab if you have that available. icosapent ethyl 1 gram capsule RxNorm: 6723614 Take 2 Capsule(s) Oral BID 09/12/19 021 Inactive Okay to dispense one 2gm tab if you have that available. amlodipine 10 mg tablet RxNorm: 047023 Take 1 Tablet(s) Oral QD 09/04/19 Inactive aspirin 81 mg tablet,delayed release RxNorm: 642511 Take 1 Tablet(s) Oral QD 09/04/19 21 Inactive Levemir FlexTouch U-100 Insulin 100 unit/mL (3 mL) subcutaneous pen RxNorm: 117805 Inject 150 Unit(s) Subcutaneous BID 09/04/19 Inactive venlafaxine ER 150 mg tablet,extended release 24 hr RxNorm: 483358 Take 1 Tablet(s) Oral QD 09/04/19 Inactive clotrimazole-betame thasone 1 %-0.05 % topical cream RxNorm: 981279 Apply to rash on red area on left abdomen/chest Topical BID 08/10/19 21 021 Inactive amlodipine 5 mg tablet RxNorm: 722891 Take 1 Tablet(s) Oral QD 07/31/19 21 Inactive cephalexin 500 mg tablet RxNorm: 347835 Take 1 Tablet(s) Oral BID BID - Twice Daily 07/31/19 21 021 Inactive Start 08/01/20 pantoprazole 40 mg tablet,delayed release RxNorm: 903289 Take 1 Tablet(s) Oral QAM every morning 07/08/19 21 022 Inactive clopidogrel 75 mg tablet RxNorm: 286923 Take 1 Tablet(s) Oral QD 07/08/19 21 021 Inactive senna 8.6 mg tablet RxNorm: 950835 Take 1 Tablet(s) Oral QD 07/08/19 21 022 Inactive Novolog Flexpen U-100 Insulin aspart 100 unit/mL (3 mL) subcutaneous RxNorm: 0681180 Administer per sliding scale Milliliter(s) Subcutaneous TID 151-200: 10 u; 201-250: 20 u; 251-300: 30 u; 301-350: 40 u; 351-400: 50 u. 07/08/19 21 022 Inactive Novolog Flexpen U-100 Insulin aspart 100 unit/mL (3 mL) subcutaneous RxNorm: 7353705 Inject 85 Unit(s) Subcutaneous TID 07/08/19 21 022 Inactive pravastatin 80 mg tablet RxNorm: 878894 Take 1 Tablet(s) Oral QHS every night at bedtime 07/08/19 022 Inactive clotrimazole 1 % topical cream RxNorm: 814933 Apply to bilateral groin areas Topical BID 07/08/19 21 022 Inactive carbamazepine 200 mg tablet RxNorm: 734330 Take 1 Tablet(s) Oral BID 07/08/19 21 022 Inactive torsemide 20 mg tablet RxNorm: 310817 Take 1 Tablet(s) Oral QD 07/08/19 21 023 Inactive Blood Glucose Test strips RxNorm: Use 1 Test Strip QID at PRN 07/08/19 21 021 Inactive E11.42 lisinopril 5 mg tablet RxNorm: 884929 Take 1 Tablet(s) Oral QD 07/08/19 21 021 Inactive metoprolol succinate ER 200 mg tablet,extended release 24 hr RxNorm: 573534 Take 1 Tablet(s) Oral QD 07/08/19 21 021 Inactive Vitamin D3 25 mcg (1,000 unit) tablet RxNorm: 174516 Take 1 Tablet(s) Oral QD 07/08/19 21 021 Inactive isosorbide dinitrate 30 mg tablet RxNorm: 875421 Take 1 Tablet(s) Oral QD 07/08/19 21 021 Inactive Levemir FlexTouch U-100 Insulin 100 unit/mL (3 mL) subcutaneous pen RxNorm: 988728 Inject 140 Unit(s) Subcutaneous BID 07/08/19 Inactive venlafaxine 75 mg tablet RxNorm: 200782 Take 1 Tablet(s) Oral QD 07/08/19 21 Inactive acetaminophen 500 mg tablet RxNorm: 206224 Take 1 Tablet(s) Oral TID as needed for headache 06/18/19 Inactive acetaminophen 500 mg tablet RxNorm: 996139 Take 1 Tablet(s) Oral TID as needed for headache 06/18/19 21 Inactive Lyrica 100 mg capsule RxNorm: 333383 Take 1 Capsule(s) Oral QHS every night at bedtime 06/11/19 21 021 Inactive Lyrica 50 mg capsule RxNorm: 656836 Take 1 Capsule(s) Oral QAM every morning 06/10/19 21 021 Inactive hydrocortisone 2.5 % topical cream RxNorm: 374850 Apply to bilateral groin creases Topical BID 05/15/20 20 021 Inactive clotrimazole 1 % topical cream RxNorm: 127668 Apply to bilateral groin areas Topical BID 05/15/20 20 021 Inactive Lyrica 50 mg capsule RxNorm: 940811 Take 1 Capsule(s) Oral QAM every morning 05/14/20 20 020 Inactive Lyrica 100 mg capsule RxNorm: 544187 Take 1 Capsule(s) Oral QHS every night [...] Inactive Nystop 100,000 unit/gram topical powder RxNorm: 205243 Apply to abd folds, under breasts and L side of groin Topical BID x 14 days, then BID PRN 04/08/20 20 Inactive dx: yeast dermatitis Lyrica 100 mg capsule RxNorm: 241792 Take 1 Capsule(s) Oral QHS every night at bedtime 03/13/20 20 Inactive Lyrica 50 mg capsule RxNorm: 870403 Take 1 Capsule(s) Oral QAM every morning 03/13/20 20 Inactive ketoconazole 2 % shampoo RxNorm: 309188 Apply Topical two times a week with showers 03/11/20 20 Inactive cholecalciferol (vitamin D3) 50 mcg (2,000 unit) tablet RxNorm: 562370 Take 1 Tablet(s) Oral QD 03/11/20 20 Inactive Zetia 10 mg tablet RxNorm: 138367 Take 1 Tablet(s) Oral QD 03/07/20 20 021 Inactive Zetia 10 mg tablet RxNorm: 940813 Take 1 Tablet(s) Oral QD 03/07/20 20 Inactive Lyrica 50 mg capsule RxNorm: 352011 Take 1 Capsule(s) Oral QAM every morning 02/15/20 20 Inactive Lyrica 100 mg capsule RxNorm: 936148 Take 1 Capsule(s) Oral QHS every night at bedtime 02/15/20 20 Inactive Lyrica 100 mg capsule RxNorm: 000438 Take 1 Capsule(s) Oral QHS every night at bedtime 02/15/20 20 Inactive Lyrica 50 mg capsule RxNorm: 519314 Take 1 Capsule(s) Oral QAM every morning [...] Codes Status Date Referral: [facility] [address] [facility] [address] [id number] [place] Referral Records Received 09/21/2022 Referral: [facility] WPtel: [address] [id number] [place] Referral Completed 05/28/2021 Referral: General Cardiology Referral Complet ed 01/03/2021 Patient Education: Patient M edication Summary Completed 12/03/2020 Referral: General Psychologist Referral Close d Instructions Comment Date Leonid is a?? Male being seen living at [facility]. Initial BPS visit 01/2020. PMHx including DMII, CAD w/ 5 stents, Depression, Seizure Disorder and CKD stage 3. He moved into [facility] in 12/2019 but after a hospitalization 05/2021 he moved to the [facility] to have closer nursing attention.??Sister Jyotsna involved in his care cell# [phone]??Guardian: Don (tapan met in person 09/01/21), now has Lexii (same group as don)Lab Schedule: * 10/06/2022
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
--- OUTSIDE RECORDS SUMMARY | 2022-11-09 23:15 | XMS_ITS | CCD ---
Author Name Sandra Mandujano CNP Address [address] [place] [address] Phone Organization [facility] Phone Care Team Providers Care Electronic Warfare Technical Name Role Phone Tapan Shirley PA-C Primary Care Provider Unavailabl e Tapan Shirley PA-C Chronic Care Management Unavaila ble Summary Purpose DataExchange Insurance Providers Payer name Policy type / Coverage type Covered green party ID Effective Begin Date Effective End Date Medicare [place] Medicare Part B [id number] Unknown Unknown Medicaid [place] Medicare Part B [id number] Unknown Unknown Family history Runs in the family Diagnosis Age At Onset No Known Diseases N/A Social History Social History Element Codes Description Effec tive Dates Living arrangements Unknown [facility] 09/03/[address]: 3071287 Non-Smoker / No History of Smoking 09/02/[address]: 020019840 No Alcohol Consum ption 09/02/2020 Allergies, Adverse Reactions, Alerts Substance Reaction Codes Entered Date Inactivated Date Status LISINOPRIL RxNorm: 20346 02/12/2020 No Inactive Da te Active Metformin HCl Unknown 02/12/2020 No Inactive Cristiano e Active Problems Condition Codes Effective Dates Condition St atus Callus of heel ICD-10: L84 ICD-9: 700 12/03/2020 Active Coronary artery disease invo lving kar[place] coronary artery of [place] heart, angina presence unspecified ICD-10: I25.10 ICD-9: [...] disability ICD-10: F81.9 ICD-9: 315.2 09/03/2020 Active shelter (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 insulin ICD-10: Z79.4 09/03 [...] Instructions clotrimazole 1 % topical cream RxNorm: 360551 Apply to right foot and toes Topical BID 12/04/19 21 023 Inactive metoprolol succinate ER 200 mg tablet,extended release 24 hr RxNorm: 647896 Take 1 Tablet(s) Oral QD 12/04/19 21 023 Inactive ciprofloxacin 500 mg tablet RxNorm: 046890 Take 1 Tablet(s) Oral QD 11/30/19 21 021 Inactive DX ofloxacin otic drops Accu-Chek Guide test strips RxNorm: USE 1 TO CHECK GLUCOSE 4 TIMES DAILY AND NEEDED 11/15/19 21 023 Inactive Blood Glucose Test strips RxNorm: Use 1 Test Strip QID at PRN 11/05/19 21 023 Inactive E11.42 lisinopril 30 mg tablet RxNorm: 958761 Take 1 Tablet(s) Oral QD 10/30/19 21 021 Inactive lisinopril 20 mg tablet RxNorm: 381381 Take 1 Tablet(s) Oral QD 10/23/19 21 021 Inactive lisinopril 20 mg tablet RxNorm: 177756 Take 1 Tablet(s) Oral QD 10/23/19 21 021 Inactive lisinopril 10 mg tablet RxNorm: 261687 Take 1 Tablet(s) Oral QD 10/02/19 21 021 Inactive icosapent ethyl 1 gram capsule RxNorm: 7311725 Take 2 Capsule(s) (2 gm) Oral BID with meals 09/12/19 022 Inactive Okay to dispense one 2gm tab if you have that available. icosapent ethyl 1 gram capsule RxNorm: 8042730 Take 2 Capsule(s) Oral BID 09/12/19 021 Inactive Okay to dispense one 2gm tab if you have that available. amlodipine 10 mg tablet RxNorm: 111450 Take 1 Tablet(s) Oral QD 09/04/19 Inactive aspirin 81 mg tablet,delayed release RxNorm: 366231 Take 1 Tablet(s) Oral QD 09/04/19 21 Inactive Levemir FlexTouch U-100 Insulin 100 unit/mL (3 mL) subcutaneous pen RxNorm: 232427 Inject 150 Unit(s) Subcutaneous BID 09/04/19 Inactive venlafaxine ER 150 mg tablet,extended release 24 hr RxNorm: 484552 Take 1 Tablet(s) Oral QD 09/04/19 Inactive clotrimazole-betame thasone 1 %-0.05 % topical cream RxNorm: 515633 Apply to rash on red area on left abdomen/chest Topical BID 08/10/19 21 021 Inactive amlodipine 5 mg tablet RxNorm: 422303 Take 1 Tablet(s) Oral QD 07/31/19 21 Inactive cephalexin 500 mg tablet RxNorm: 264384 Take 1 Tablet(s) Oral BID BID - Twice Daily 07/31/19 21 021 Inactive Start 08/01/20 pantoprazole 40 mg tablet,delayed release RxNorm: 997574 Take 1 Tablet(s) Oral QAM every morning 07/08/19 21 022 Inactive clopidogrel 75 mg tablet RxNorm: 116508 Take 1 Tablet(s) Oral QD 07/08/19 21 021 Inactive senna 8.6 mg tablet RxNorm: 418477 Take 1 Tablet(s) Oral QD 07/08/19 21 022 Inactive Novolog Flexpen U-100 Insulin aspart 100 unit/mL (3 mL) subcutaneous RxNorm: 1731517 Administer per sliding scale Milliliter(s) Subcutaneous TID 151-200: 10 u; 201-250: 20 u; 251-300: 30 u; 301-350: 40 u; 351-400: 50 u. 07/08/19 21 022 Inactive Novolog Flexpen U-100 Insulin aspart 100 unit/mL (3 mL) subcutaneous RxNorm: 4812968 Inject 85 Unit(s) Subcutaneous TID 07/08/19 21 022 Inactive pravastatin 80 mg tablet RxNorm: 124825 Take 1 Tablet(s) Oral QHS every night at bedtime 07/08/19 022 Inactive clotrimazole 1 % topical cream RxNorm: 991840 Apply to bilateral groin areas Topical BID 07/08/19 21 022 Inactive carbamazepine 200 mg tablet RxNorm: 881817 Take 1 Tablet(s) Oral BID 07/08/19 21 022 Inactive torsemide 20 mg tablet RxNorm: 500355 Take 1 Tablet(s) Oral QD 07/08/19 21 023 Inactive Blood Glucose Test strips RxNorm: Use 1 Test Strip QID at PRN 07/08/19 21 021 Inactive E11.42 lisinopril 5 mg tablet RxNorm: 296344 Take 1 Tablet(s) Oral QD 07/08/19 21 021 Inactive metoprolol succinate ER 200 mg tablet,extended release 24 hr RxNorm: 905096 Take 1 Tablet(s) Oral QD 07/08/19 21 021 Inactive Vitamin D3 25 mcg (1,000 unit) tablet RxNorm: 270179 Take 1 Tablet(s) Oral QD 07/08/19 21 021 Inactive isosorbide dinitrate 30 mg tablet RxNorm: 615784 Take 1 Tablet(s) Oral QD 07/08/19 21 021 Inactive Levemir FlexTouch U-100 Insulin 100 unit/mL (3 mL) subcutaneous pen RxNorm: 096238 Inject 140 Unit(s) Subcutaneous BID 07/08/19 Inactive venlafaxine 75 mg tablet RxNorm: 319102 Take 1 Tablet(s) Oral QD 07/08/19 21 Inactive acetaminophen 500 mg tablet RxNorm: 442878 Take 1 Tablet(s) Oral TID as needed for headache 06/18/19 Inactive acetaminophen 500 mg tablet RxNorm: 049860 Take 1 Tablet(s) Oral TID as needed for headache 06/18/19 21 Inactive Lyrica 100 mg capsule RxNorm: 957393 Take 1 Capsule(s) Oral QHS every night at bedtime 06/11/19 21 021 Inactive Lyrica 50 mg capsule RxNorm: 241649 Take 1 Capsule(s) Oral QAM every morning 06/10/19 21 021 Inactive hydrocortisone 2.5 % topical cream RxNorm: 111467 Apply to bilateral groin creases Topical BID 05/15/20 20 021 Inactive clotrimazole 1 % topical cream RxNorm: 219875 Apply to bilateral groin areas Topical BID 05/15/20 20 021 Inactive Lyrica 50 mg capsule RxNorm: 355104 Take 1 Capsule(s) Oral QAM every morning 05/14/20 20 020 Inactive Lyrica 100 mg capsule RxNorm: 257078 Take 1 Capsule(s) Oral QHS every night [...] Inactive Nystop 100,000 unit/gram topical powder RxNorm: 692623 Apply to abd folds, under breasts and L side of groin Topical BID x 14 days, then BID PRN 04/08/20 20 Inactive dx: yeast dermatitis Lyrica 100 mg capsule RxNorm: 437350 Take 1 Capsule(s) Oral QHS every night at bedtime 03/13/20 20 Inactive Lyrica 50 mg capsule RxNorm: 157208 Take 1 Capsule(s) Oral QAM every morning 03/13/20 20 Inactive ketoconazole 2 % shampoo RxNorm: 890396 Apply Topical two times a week with showers 03/11/20 20 Inactive cholecalciferol (vitamin D3) 50 mcg (2,000 unit) tablet RxNorm: 591452 Take 1 Tablet(s) Oral QD 03/11/20 20 Inactive Zetia 10 mg tablet RxNorm: 722882 Take 1 Tablet(s) Oral QD 03/07/20 20 021 Inactive Zetia 10 mg tablet RxNorm: 802851 Take 1 Tablet(s) Oral QD 03/07/20 20 Inactive Lyrica 50 mg capsule RxNorm: 619694 Take 1 Capsule(s) Oral QAM every morning 02/15/20 20 Inactive Lyrica 100 mg capsule RxNorm: 673618 Take 1 Capsule(s) Oral QHS every night at bedtime 02/15/20 20 Inactive Lyrica 100 mg capsule RxNorm: 692871 Take 1 Capsule(s) Oral QHS every night at bedtime 02/15/20 20 Inactive Lyrica 50 mg capsule RxNorm: 174110 Take 1 Capsule(s) Oral QAM every morning [...] ear[ICD10: H60.392] Diagnosis: Coronary artery disease involving kar[place] coronary artery of [place] heart, angina presence unspecified[ICD1 0: I25.10] Diagnosis: Tinea pedis[ICD10: B35.3] Diagnosis: Callus of heel[ICD10: L84] Sandra Mandujano [facility] [address] [place] [address] CPT-4: 97678 12/03/2020 Plan of Care Planned Activity Notes Codes Status Date Referral: [facility] WPtel: [address], [address] [id number] [place] Referral Records Received 09/21/2022 Referral: [facility] WPtel: [address] [id number] [place] Referral Completed 05/28/2021 Referral: General Cardiology Referral Complet ed 01/03/2021 Patient Education: Patient M edication Summary Completed 12/03/2020 Patient Education: Influenza Vaccine Completed 12/03/2020 Referral: General Psychologist Referral Close d Instructions Comment Date Leonid is a?? Male being seen living at [facility]. Initial [facility] visit 01/2020. PMHx including DMII, CAD w/ 5 stents, Depression, Seizure Disorder and CKD stage 3. He moved into [facility] in 12/2019 but after a hospitalization 05/2021 he moved to the [facility] to have closer nursing attention.??Sister Jyotsna involved in his care cell# [phone]??Guardian: Don (tapan met in person 09/01/21), now [...] externa of left ear Continue current treatments.?? . 12/03/2020
--- OUTSIDE RECORDS SUMMARY | 2022-11-09 23:16 | XMS_ITS | CCD ---
Author Name Unknown Organization Unknown Care Team Providers Care Programming Internship Name Role Phone Tapan Shirley PA-C Primary Care Provider Unavailabl e Tapan Shirley PA-C Chronic Care Management Unavaila ble Summary Purpose DataExchange Insurance Providers Payer name Policy type / Coverage type Covered alliance party ID Effective Begin Date Effective End Date Medicare [place] Medicare Part B [id number] Unknown Unknown Medicaid [place] Medicare Part B [id number] Unknown Unknown Family history Runs in the family Diagnosis Age At Onset No Known Diseases N/A Social History Social History Element Codes Description Effec tive Dates Living arrangements Unknown [facility] 09[facility]: 1362052 Non-Smoker / No History of Smoking 09/02/[address]: 887045558 No Alcohol Consum ption 09/02/2020 Allergies, Adverse Reactions, Alerts Substance Reaction Codes Entered Date Inactivated Date Status LISINOPRIL RxNorm: 51201 02/12/2020 No Inactive Da te Active Metformin HCl Unknown 02/12/2020 No Inactive Cristiano e Active Problems Condition Codes Effective Dates Condition St atus Callus of heel ICD-10: L84 ICD-9: 700 02/10/2021 Active Coronary artery disease invo lving [place] [...] ICD-10: M10 .30 ICD-9: 274.10 09/03/2020 Active nursing home (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 [...] Fill Instructions cephalexin 500 mg tablet RxNorm: 999361 Take 1 Tablet(s) Oral QID 02/27/20 21 021 Inactive cephalexin 500 mg tablet RxNorm: 835630 Take 1 Tablet(s) Oral QID 02/27/20 21 021 Inactive lisinopril 40 mg tablet RxNorm: 809101 Take 1 Tablet(s) Oral QD 02/11/20 21 023 Inactive Eliquis 5 mg tablet RxNorm: 6457235 Take 1 Tablet(s) Oral BID 01/05/20 21 022 Inactive Eliquis 5 mg tablet RxNorm: 0308356 Take 2 Tablet(s) Oral QD 01/01/20 21 021 Inactive Lyrica 50 mg capsule RxNorm: 495095 Take 1 Capsule(s) Oral QAM every morning 12/24/19 21 021 Inactive Lyrica 100 mg capsule RxNorm: 484385 Take 1 Capsule(s) Oral QHS every night at bedtime 12/24/19 21 021 Inactive clotrimazole 1 % topical cream RxNorm: 397897 Apply to right foot and toes Topical BID 12/04/19 21 023 Inactive metoprolol succinate ER 200 mg tablet,extended release 24 hr RxNorm: 983862 Take 1 Tablet(s) Oral QD 12/04/19 21 023 Inactive ciprofloxacin 500 mg tablet RxNorm: 051471 Take 1 Tablet(s) Oral QD 11/30/19 21 021 Inactive DX ofloxacin otic drops Accu-Chek Guide test strips RxNorm: USE 1 TO CHECK GLUCOSE 4 TIMES DAILY AND NEEDED 11/15/19 21 023 Inactive Blood Glucose Test strips RxNorm: Use 1 Test Strip QID at PRN 11/05/19 21 023 Inactive E11.42 lisinopril 30 mg tablet RxNorm: 936972 Take 1 Tablet(s) Oral QD 10/30/19 021 Inactive lisinopril 20 mg tablet RxNorm: 926283 Take 1 Tablet(s) Oral QD 10/23/19 21 021 Inactive lisinopril 20 mg tablet RxNorm: 502115 Take 1 Tablet(s) Oral QD 10/23/19 21 021 Inactive lisinopril 10 mg tablet RxNorm: 681591 Take 1 Tablet(s) Oral QD 10/02/19 21 021 Inactive icosapent ethyl 1 gram capsule RxNorm: 5879284 Take 2 Capsule(s) (2 gm) Oral BID with meals 09/12/19 022 Inactive Okay to dispense one 2gm tab if you have that available. icosapent ethyl 1 gram capsule RxNorm: 8319734 Take 2 Capsule(s) Oral BID 09/12/19 21 021 Inactive Okay to dispense one 2gm tab if you have that available. amlodipine 10 mg tablet RxNorm: 622740 Take 1 Tablet(s) Oral QD 09/04/19 21 022 Inactive Levemir FlexTouch U-100 Insulin 100 unit/mL (3 mL) subcutaneous pen RxNorm: 441471 Inject 150 Unit(s) Subcutaneous BID 09/04/19 21 Inactive venlafaxine ER 150 mg tablet,extended release 24 hr RxNorm: 376338 Take 1 Tablet(s) Oral QD 09/04/19 21 Inactive aspirin 81 mg tablet,delayed release RxNorm: 342351 Take 1 Tablet(s) Oral QD 09/04/19 Inactive clotrimazole-betame thasone 1 %-0.05 % topical cream RxNorm: 888394 Apply to rash on red area on left abdomen/chest Topical BID 08/10/19 Inactive amlodipine 5 mg tablet RxNorm: 860590 Take 1 Tablet(s) Oral QD 07/31/19 Inactive cephalexin 500 mg tablet RxNorm: 491343 Take 1 Tablet(s) Oral BID BID - Twice Daily 07/31/19 Inactive Start 08/01/20 pantoprazole 40 mg tablet,delayed release RxNorm: 592698 Take 1 Tablet(s) Oral QAM every morning 07/08/19 Inactive senna 8.6 mg tablet RxNorm: 057843 Take 1 Tablet(s) Oral QD 07/08/19 Inactive Novolog Flexpen U-100 Insulin aspart 100 unit/mL (3 mL) subcutaneous RxNorm: 3272727 Administer per sliding scale Milliliter(s) Subcutaneous TID 151-200: 10 u; 201-250: 20 u; 251-300: 30 u; 301-350: 40 u; 351-400: 50 u. 07/08/19 21 022 Inactive Novolog Flexpen U-100 Insulin aspart 100 unit/mL (3 mL) subcutaneous RxNorm: 5840022 Inject 85 Unit(s) Subcutaneous TID 07/08/19 Inactive pravastatin 80 mg tablet RxNorm: 563332 Take 1 Tablet(s) Oral QHS every night at bedtime 07/08/19 Inactive clotrimazole 1 % topical cream RxNorm: 885730 Apply to bilateral groin areas Topical BID 07/08/19 21 022 Inactive carbamazepine 200 mg tablet RxNorm: 484019 Take 1 Tablet(s) Oral BID 07/08/19 022 Inactive torsemide 20 mg tablet RxNorm: 172726 Take 1 Tablet(s) Oral QD 07/08/19 023 Inactive clopidogrel 75 mg tablet RxNorm: 403052 Take 1 Tablet(s) Oral QD 07/08/19 021 Inactive Blood Glucose Test strips RxNorm: Use 1 Test Strip QID at PRN 07/08/19 21 021 Inactive E11.42 lisinopril 5 mg tablet RxNorm: 641732 Take 1 Tablet(s) Oral QD 07/08/19 021 Inactive metoprolol succinate ER 200 mg tablet,extended release 24 hr RxNorm: 432387 Take 1 Tablet(s) Oral QD 07/08/19 021 Inactive Vitamin D3 25 mcg (1,000 unit) tablet RxNorm: 185509 Take 1 Tablet(s) Oral QD 07/08/19 021 Inactive isosorbide dinitrate 30 mg tablet RxNorm: 369366 Take 1 Tablet(s) Oral QD 07/08/19 021 Inactive Levemir FlexTouch U-100 Insulin 100 unit/mL (3 mL) subcutaneous pen RxNorm: 715436 Inject 140 Unit(s) Subcutaneous BID 07/08/19 021 Inactive venlafaxine 75 mg tablet RxNorm: 346459 Take 1 Tablet(s) Oral QD 07/08/19 021 Inactive acetaminophen 500 mg tablet RxNorm: 311196 Take 1 Tablet(s) Oral TID as needed for headache 06/18/19 021 Inactive acetaminophen 500 mg tablet RxNorm: 933572 Take 1 Tablet(s) Oral TID as needed for headache 06/18/19 021 Inactive Lyrica 100 mg capsule RxNorm: 177630 Take 1 Capsule(s) Oral QHS every night at bedtime 06/11/19 021 Inactive Lyrica 50 mg capsule RxNorm: 076896 Take 1 Capsule(s) Oral QAM every morning 06/10/19 21 021 Inactive hydrocortisone 2.5 % topical cream RxNorm: 598008 Apply to bilateral groin creases Topical BID 05/15/20 20 021 Inactive clotrimazole 1 % topical cream RxNorm: 964921 Apply to bilateral groin areas Topical BID 05/15/20 20 Inactive Lyrica 50 mg capsule RxNorm: 773207 Take 1 Capsule(s) Oral QAM every morning 05/14/20 20 Inactive Lyrica 100 mg capsule RxNorm: 055557 Take 1 Capsule(s) Oral QHS every night [...] Inactive Nystop 100,000 unit/gram topical powder RxNorm: 557428 Apply to abd folds, under breasts and L side of groin Topical BID x 14 days, then BID PRN 04/08/20 20 021 Inactive dx: yeast dermatitis Lyrica 100 mg capsule RxNorm: 690916 Take 1 Capsule(s) Oral QHS every night at bedtime 03/13/20 20 020 Inactive Lyrica 50 mg capsule RxNorm: 487325 Take 1 Capsule(s) Oral QAM every morning 03/13/20 20 020 Inactive ketoconazole 2 % shampoo RxNorm: 636130 Apply Topical two times a week with showers 03/11/20 20 Inactive cholecalciferol (vitamin D3) 50 mcg (2,000 unit) tablet RxNorm: 219128 Take 1 Tablet(s) Oral QD 03/11/20 Inactive Zetia 10 mg tablet RxNorm: 902281 Take 1 Tablet(s) Oral QD 03/07/20 Inactive Zetia 10 mg tablet RxNorm: 235594 Take 1 Tablet(s) Oral QD 03/07/20 Inactive Lyrica 50 mg capsule RxNorm: 140896 Take 1 Capsule(s) Oral QAM every morning 02/15/20 Inactive Lyrica 100 mg capsule RxNorm: 406956 Take 1 Capsule(s) Oral QHS every night at bedtime 02/15/20 Inactive Lyrica 100 mg capsule RxNorm: 536810 Take 1 Capsule(s) Oral QHS every night at bedtime 02/15/20 Inactive Lyrica 50 mg capsule RxNorm: 592362 Take 1 Capsule(s) Oral QAM every morning [...] Codes Status Date Referral: [facility] WPtel: [address], [address] [id number] Referral Records Received 09/21/2022 Referral: [facility] WPtel: [address] [id number] [place] Referral Completed 05/28/2021 Referral: General Cardiology Referral Complet ed 01/03/2021 Referral: General Psychologist Referral Close d Instructions Comment Date Leonid is a?? Male being seen living at [facility]. Initial BPS visit 01/2020. PMHx including DMII, CAD w/ 5 stents, Depression, Seizure Disorder and CKD stage 3. He moved into [facility] in 12/2019 but after a hospitalization 05/2021 he [facility] to have closer nursing attention.??Sister Jyotsna involved in his care cell# [phone]??Guardian: Don (tapan met in person 09/01/21), now has [facility] (same group as don)Lab Schedule: * 10/06/2022
--- OUTSIDE RECORDS SUMMARY | 2022-11-09 23:16 | XMS_ITS | CCD ---
Author Name Sandra Mandujano CNP Address [address] [facility] [address] 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 Name Role Phone Tapan Shirley PA-C Primary Care Provider Unavailabl e Tapan Shirley PA-C Chronic Care Management Unavaila ble Summary Purpose DataExchange Insurance Providers Payer name Policy type / Coverage type Covered democrat ID Effective Begin Date Effective End Date Medicare [place] Medicare Part B [id number] Unknown Unknown Medicaid [place] Medicare Part B [id number] Unknown Unknown Family history Runs in the family Diagnosis Age At Onset No Known Diseases N/A Social History Social History Element Codes Description Effec tive Dates Living arrangements Unknown Residential 09/03/[address]: 4787876 Non-Smoker / No History of Smoking 09/02/[address]: 723819164 No Alcohol Consum ption 09/02/2020 Allergies, Adverse Reactions, Alerts Substance Reaction Codes Entered Date Inactivated Date Status LISINOPRIL RxNorm: 13274 02/12/2020 No Inactive Da te Active Metformin HCl Unknown 02/12/2020 No Inactive Cristiano e Active Problems Condition Codes Effective Dates Condition St atus Callus of heel ICD-10: 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 ICD-9: 700 02/10/2021 Active Coronary artery disease invo lving kiana coronary artery of kiana heart, angina presence unspecified ICD-10: I25.10 ICD-9: [...] ICD-10: M10 .30 ICD-9: 274.10 09/03/2020 Active meterman (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 insulin ICD-10: Z79.4 09/03 [...] Fill Instructions lisinopril 40 mg tablet RxNorm: 605277 Take 1 Tablet(s) Oral QD 02/11/20 023 Inactive Eliquis 5 mg tablet RxNorm: 9520780 Take 1 Tablet(s) Oral BID 01/05/20 21 022 Inactive Eliquis 5 mg tablet RxNorm: 3267664 Take 2 Tablet(s) Oral QD 01/01/20 021 Inactive Lyrica 50 mg capsule RxNorm: 199057 Take 1 Capsule(s) Oral QAM every morning 12/24/19 21 021 Inactive Lyrica 100 mg capsule RxNorm: 764426 Take 1 Capsule(s) Oral QHS every night at bedtime 12/24/19 021 Inactive clotrimazole 1 % topical cream RxNorm: 177834 Apply to right foot and toes Topical BID 12/04/19 21 023 Inactive metoprolol succinate ER 200 mg tablet,extended release 24 hr RxNorm: 908781 Take 1 Tablet(s) Oral QD 12/04/19 21 023 Inactive ciprofloxacin 500 mg tablet RxNorm: 681462 Take 1 Tablet(s) Oral QD 11/30/19 21 021 Inactive DX ofloxacin otic drops Accu-Chek Guide test strips RxNorm: USE 1 TO CHECK GLUCOSE 4 TIMES DAILY AND NEEDED 11/15/19 21 023 Inactive Blood Glucose Test strips RxNorm: Use 1 Test Strip QID at PRN 11/05/19 21 023 Inactive E11.42 lisinopril 30 mg tablet RxNorm: 785981 Take 1 Tablet(s) Oral QD 10/30/19 021 Inactive lisinopril 20 mg tablet RxNorm: 557889 Take 1 Tablet(s) Oral QD 10/23/19 21 021 Inactive lisinopril 20 mg tablet RxNorm: 920526 Take 1 Tablet(s) Oral QD 10/23/19 21 021 Inactive lisinopril 10 mg tablet RxNorm: 672647 Take 1 Tablet(s) Oral QD 10/02/19 021 Inactive icosapent ethyl 1 gram capsule RxNorm: 5307672 Take 2 Capsule(s) (2 gm) Oral BID with meals 09/12/19 022 Inactive Okay to dispense one 2gm tab if you have that available. icosapent ethyl 1 gram capsule RxNorm: 2122476 Take 2 Capsule(s) Oral BID 09/12/19 021 Inactive Okay to dispense one 2gm tab if you have that available. amlodipine 10 mg tablet RxNorm: 179303 Take 1 Tablet(s) Oral QD 09/04/19 21 022 Inactive Levemir FlexTouch U-100 Insulin 100 unit/mL (3 mL) subcutaneous pen RxNorm: 348454 Inject 150 Unit(s) Subcutaneous BID 09/04/19 21 Inactive venlafaxine ER 150 mg tablet,extended release 24 hr RxNorm: 278767 Take 1 Tablet(s) Oral QD 09/04/19 Inactive aspirin 81 mg tablet,delayed release RxNorm: 661091 Take 1 Tablet(s) Oral QD 09/04/19 Inactive clotrimazole-betame thasone 1 %-0.05 % topical cream RxNorm: 610311 Apply to rash on red area on left abdomen/chest Topical BID 08/10/19 21 Inactive amlodipine 5 mg tablet RxNorm: 321915 Take 1 Tablet(s) Oral QD 07/31/19 Inactive cephalexin 500 mg tablet RxNorm: 413923 Take 1 Tablet(s) Oral BID BID - Twice Daily 07/31/19 Inactive Start 08/01/20 pantoprazole 40 mg tablet,delayed release RxNorm: 766182 Take 1 Tablet(s) Oral QAM every morning 07/08/19 Inactive senna 8.6 mg tablet RxNorm: 927928 Take 1 Tablet(s) Oral QD 07/08/19 Inactive Novolog Flexpen U-100 Insulin aspart 100 unit/mL (3 mL) subcutaneous RxNorm: 9122708 Administer per sliding scale Milliliter(s) Subcutaneous TID 151-200: 10 u; 201-250: 20 u; 251-300: 30 u; 301-350: 40 u; 351-400: 50 u. 07/08/19 Inactive Novolog Flexpen U-100 Insulin aspart 100 unit/mL (3 mL) subcutaneous RxNorm: 5928471 Inject 85 Unit(s) Subcutaneous TID 07/08/19 Inactive pravastatin 80 mg tablet RxNorm: 085337 Take 1 Tablet(s) Oral QHS every night at bedtime 07/08/19 Inactive clotrimazole 1 % topical cream RxNorm: 212376 Apply to bilateral groin areas Topical BID 07/08/19 21 Inactive carbamazepine 200 mg tablet RxNorm: 869058 Take 1 Tablet(s) Oral BID 07/08/19 022 Inactive torsemide 20 mg tablet RxNorm: 836959 Take 1 Tablet(s) Oral QD 07/08/19 023 Inactive clopidogrel 75 mg tablet RxNorm: 415841 Take 1 Tablet(s) Oral QD 07/08/19 021 Inactive Blood Glucose Test strips RxNorm: Use 1 Test Strip QID at PRN 07/08/19 21 021 Inactive E11.42 lisinopril 5 mg tablet RxNorm: 403642 Take 1 Tablet(s) Oral QD 07/08/19 021 Inactive metoprolol succinate ER 200 mg tablet,extended release 24 hr RxNorm: 026343 Take 1 Tablet(s) Oral QD 07/08/19 021 Inactive Vitamin D3 25 mcg (1,000 unit) tablet RxNorm: 519197 Take 1 Tablet(s) Oral QD 07/08/19 021 Inactive isosorbide dinitrate 30 mg tablet RxNorm: 013445 Take 1 Tablet(s) Oral QD 07/08/19 021 Inactive Levemir FlexTouch U-100 Insulin 100 unit/mL (3 mL) subcutaneous pen RxNorm: 792455 Inject 140 Unit(s) Subcutaneous BID 07/08/19 021 Inactive venlafaxine 75 mg tablet RxNorm: 050305 Take 1 Tablet(s) Oral QD 07/08/19 021 Inactive acetaminophen 500 mg tablet RxNorm: 027616 Take 1 Tablet(s) Oral TID as needed for headache 06/18/19 021 Inactive acetaminophen 500 mg tablet RxNorm: 766507 Take 1 Tablet(s) Oral TID as needed for headache 06/18/19 021 Inactive Lyrica 100 mg capsule RxNorm: 967792 Take 1 Capsule(s) Oral QHS every night at bedtime 06/11/19 021 Inactive Lyrica 50 mg capsule RxNorm: 481128 Take 1 Capsule(s) Oral QAM every morning 06/10/19 21 01/26/2 021 Inactive hydrocortisone 2.5 % topical cream RxNorm: 229514 Apply to bilateral groin creases Topical BID 05/15/20 20 021 Inactive clotrimazole 1 % topical cream RxNorm: 653950 Apply to bilateral groin areas Topical BID 05/15/20 20 021 Inactive Lyrica 50 mg capsule RxNorm: 284355 Take 1 Capsule(s) Oral QAM every morning 05/14/20 20 Inactive Lyrica 100 mg capsule RxNorm: 561813 Take 1 Capsule(s) Oral QHS every night [...] Inactive Nystop 100,000 unit/gram topical powder RxNorm: 266597 Apply to abd folds, under breasts and L side of groin Topical BID x 14 days, then BID PRN 04/08/20 20 021 Inactive dx: yeast dermatitis Lyrica 100 mg capsule RxNorm: 074102 Take 1 Capsule(s) Oral QHS every night at bedtime 03/13/20 20 Inactive Lyrica 50 mg capsule RxNorm: 665556 Take 1 Capsule(s) Oral QAM every morning 03/13/20 20 020 Inactive ketoconazole 2 % shampoo RxNorm: 063172 Apply Topical two times a week with showers 03/11/20 Inactive cholecalciferol (vitamin D3) 50 mcg (2,000 unit) tablet RxNorm: 014380 Take 1 Tablet(s) Oral QD 03/11/20 Inactive Zetia 10 mg tablet RxNorm: 189398 Take 1 Tablet(s) Oral QD 03/07/20 Inactive Zetia 10 mg tablet RxNorm: 174590 Take 1 Tablet(s) Oral QD 03/07/20 Inactive Lyrica 50 mg capsule RxNorm: 811687 Take 1 Capsule(s) Oral QAM every morning 02/15/20 Inactive Lyrica 100 mg capsule RxNorm: 644027 Take 1 Capsule(s) Oral QHS every night at bedtime 02/15/20 Inactive Lyrica 100 mg capsule RxNorm: 002813 Take 1 Capsule(s) Oral QHS every night at bedtime 02/15/20 Inactive Lyrica 50 mg capsule RxNorm: 248757 Take 1 Capsule(s) Oral QAM every morning [...] Encounter Performer Location Location Address Codes Date (31997) DOMICIL VISIT EST PAT Diagnosis: Hypertension secondary [...] thrombosis)[ICD10: I82.409] Diagnosis: Coronary artery disease involving kiana coronary artery of kiana heart, angina presence unspecified[ICD10: I25.10] Diagnosis: Seizure disorder[ICD10: G40.909] Diagnosis: Skin tag[ICD10: L91.8] Sandra Mandujano [facility] [address] [place] [address] CPT-4: 45469 02/10/2021 Plan of Care Planned Activity Notes Codes Status Date Referral: [facility] WPtel: [address], [address] [id number] Referral Records Received 09/21/2022 Referral: [facility] WPtel: [address] [id number] [place] Referral Completed 05/28/2021 Patient Education: Patient [...] [facility] attention.??Sister Jyotsna involved in his care cell# [phone]??Guardian: Don (tapan met in person 09/01/21), now [...] Continue annual and PRN follow up with [facility].?? Epilepsy Serum Carbamazepine ordered last month not on file. Nursing staff to look into this and complete if needed.? . 02/10/2021
--- OUTSIDE RECORDS SUMMARY | 2022-11-09 23:17 | XMS_ITS | CCD ---
Author Name Sandra Mandujano CNP Address [address] [facility] [address] [place] [address] Phone Organization [facility] Phone Care Team Providers Care Onsite Health Coach Name Role Phone Tapan Shirley PA-C Primary Care Provider Unavailabl e Tapan Shirley PA-C Chronic Care Management Unavaila ble Summary Purpose DataExchange Insurance Providers Payer name Policy type / Coverage type Covered democrat ID Effective Begin Date Effective End Date Medicare [place] Medicare Part B [id number] Unknown Unknown Medicaid [place] Medicare Part B [id number] Unknown Unknown Family history Runs in the family Diagnosis Age At Onset No Known Diseases N/A Social History Social History Element Codes Description Effec tive Dates Living arrangements Unknown Residential 09/03/[address]: 7219475 Non-Smoker / No History of Smoking 09/02/[address]: 078545858 No Alcohol Consum ption 09/02/2020 Allergies, Adverse Reactions, Alerts Substance Reaction Codes Entered Date Inactivated Date Status LISINOPRIL RxNorm: 88580 02/12/2020 No Inactive Da te Active Metformin [...] 02/10/2021 Active Coronary artery disease invo lving [place] coronary artery of [place] heart, angina presence unspecified ICD-10: I25.10 [...] ICD-10: M10 .30 ICD-9: 274.10 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 ICD-10: 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 09/03 [...] Instructions aspirin 81 mg tablet,delayed release RxNorm: 817921 Take 1 Tablet(s) Oral QD 03/31/20 022 Inactive Vitamin D2 1,250 mcg (50,000 unit) capsule RxNorm: 4718708 Take 1 Capsule(s) Oral QW once a week x 12 weeks 03/31/20 022 Inactive Vitamin D2 1,250 mcg (50,000 unit) capsule RxNorm: 3615787 Take 1 Capsule(s) Oral QW once a week 03/31/20 021 Inactive Zetia 10 mg tablet RxNorm: 391982 Take 1 Tablet(s) Oral QD 03/31/20 022 Inactive Zetia 10 mg tablet RxNorm: 178837 Take 1 Tablet(s) Oral QD 03/31/20 021 Inactive hydralazine 25 mg tablet RxNorm: 191929 Take 1 Tablet(s) Oral QID 03/31/20 021 Inactive hydralazine 25 mg tablet RxNorm: 079684 Take 1 Tablet(s) Oral QID 03/31/20 021 Inactive hydralazine 10 mg tablet RxNorm: 389052 Take 1 Tablet(s) Oral QID 03/03/20 021 Inactive cephalexin 500 mg tablet RxNorm: 024604 Take 1 Tablet(s) Oral QID 02/27/20 021 Inactive cephalexin 500 mg tablet RxNorm: 246026 Take 1 Tablet(s) Oral QID 02/27/20 021 Inactive lisinopril 40 mg tablet RxNorm: 303195 Take 1 Tablet(s) Oral QD 02/11/20 023 Inactive Eliquis 5 mg tablet RxNorm: 6740344 Take 1 Tablet(s) Oral BID 01/05/20 022 Inactive Eliquis 5 mg tablet RxNorm: 4284063 Take 2 Tablet(s) Oral QD 01/01/20 21 021 Inactive Lyrica 50 mg capsule RxNorm: 987889 Take 1 Capsule(s) Oral QAM every morning 12/24/19 021 Inactive Lyrica 100 mg capsule RxNorm: 704639 Take 1 Capsule(s) Oral QHS every night at bedtime 12/24/19 021 Inactive clotrimazole 1 % topical cream RxNorm: 599515 Apply to right foot and toes Topical BID 12/04/19 21 023 Inactive metoprolol succinate ER 200 mg tablet,extended release 24 hr RxNorm: 883796 Take 1 Tablet(s) Oral QD 12/04/19 21 023 Inactive ciprofloxacin 500 mg tablet RxNorm: 952476 Take 1 Tablet(s) Oral QD 11/30/19 21 021 Inactive DX ofloxacin otic drops Accu-Chek Guide test strips RxNorm: USE 1 TO CHECK GLUCOSE 4 TIMES DAILY AND NEEDED 11/15/19 21 023 Inactive Blood Glucose Test strips RxNorm: Use 1 Test Strip QID at PRN 11/05/19 21 023 Inactive E11.42 lisinopril 30 mg tablet RxNorm: 522902 Take 1 Tablet(s) Oral QD 10/30/19 021 Inactive lisinopril 20 mg tablet RxNorm: 069270 Take 1 Tablet(s) Oral QD 10/23/19 021 Inactive lisinopril 20 mg tablet RxNorm: 549361 Take 1 Tablet(s) Oral QD 10/23/19 21 021 Inactive lisinopril 10 mg tablet RxNorm: 541689 Take 1 Tablet(s) Oral QD 10/02/19 21 021 Inactive icosapent ethyl 1 gram capsule RxNorm: 9934984 Take 2 Capsule(s) (2 gm) Oral BID with meals 09/12/19 022 Inactive Okay to dispense one 2gm tab if you have that available. icosapent ethyl 1 gram capsule RxNorm: 9562503 Take 2 Capsule(s) Oral BID 09/12/19 021 Inactive Okay to dispense one 2gm tab if you have that available. amlodipine 10 mg tablet RxNorm: 931248 Take 1 Tablet(s) Oral QD 09/04/19 022 Inactive Levemir FlexTouch U-100 Insulin 100 unit/mL (3 mL) subcutaneous pen RxNorm: 868508 Inject 150 Unit(s) Subcutaneous BID 09/04/19 21 022 Inactive venlafaxine ER 150 mg tablet,extended release 24 hr RxNorm: 687109 Take 1 Tablet(s) Oral QD 09/04/19 21 021 Inactive aspirin 81 mg tablet,delayed release RxNorm: 284346 Take 1 Tablet(s) Oral QD 09/04/19 21 021 Inactive clotrimazole-betame thasone 1 %-0.05 % topical cream RxNorm: 157542 Apply to rash on red area on left abdomen/chest Topical BID 03/26/ 021 Inactive amlodipine 5 mg tablet RxNorm: 141467 Take 1 Tablet(s) Oral QD 07/31/19 Inactive cephalexin 500 mg tablet RxNorm: 001338 Take 1 Tablet(s) Oral BID BID - Twice Daily 07/31/19 21 021 Inactive Start 08/01/20 pantoprazole 40 mg tablet,delayed release RxNorm: 299394 Take 1 Tablet(s) Oral QAM every morning 07/08/19 022 Inactive senna 8.6 mg tablet RxNorm: 541389 Take 1 Tablet(s) Oral QD 07/08/19 022 Inactive Novolog Flexpen U-100 Insulin aspart 100 unit/mL (3 mL) subcutaneous RxNorm: 2062078 Administer per sliding scale Milliliter(s) Subcutaneous TID 151-200: 10 u; 201-250: 20 u; 251-300: 30 u; 301-350: 40 u; 351-400: 50 u. 07/08/19 022 Inactive Novolog Flexpen U-100 Insulin aspart 100 unit/mL (3 mL) subcutaneous RxNorm: 8620150 Inject 85 Unit(s) Subcutaneous TID 07/08/19 022 Inactive pravastatin 80 mg tablet RxNorm: 363393 Take 1 Tablet(s) Oral QHS every night at bedtime 07/08/19 022 Inactive clotrimazole 1 % topical cream RxNorm: 745190 Apply to bilateral groin areas Topical BID 07/08/19 022 Inactive carbamazepine 200 mg tablet RxNorm: 873841 Take 1 Tablet(s) Oral BID 07/08/19 022 Inactive torsemide 20 mg tablet RxNorm: 038965 Take 1 Tablet(s) Oral QD 07/08/19 023 Inactive clopidogrel 75 mg tablet RxNorm: 143514 Take 1 Tablet(s) Oral QD 07/08/19 021 Inactive Blood Glucose Test strips RxNorm: Use 1 Test Strip QID at PRN 07/08/19 21 021 Inactive E11.42 lisinopril 5 mg tablet RxNorm: 798862 Take 1 Tablet(s) Oral QD 07/08/19 021 Inactive metoprolol succinate ER 200 mg tablet,extended release 24 hr RxNorm: 977163 Take 1 Tablet(s) Oral QD 07/08/19 021 Inactive Vitamin D3 25 mcg (1,000 unit) tablet RxNorm: 252489 Take 1 Tablet(s) Oral QD 07/08/19 021 Inactive isosorbide dinitrate 30 mg tablet RxNorm: 657368 Take 1 Tablet(s) Oral QD 07/08/19 021 Inactive Levemir FlexTouch U-100 Insulin 100 unit/mL (3 mL) subcutaneous pen RxNorm: 828092 Inject 140 Unit(s) Subcutaneous BID 07/08/19 Inactive venlafaxine 75 mg tablet RxNorm: 167586 Take 1 Tablet(s) Oral QD 07/08/19 Inactive acetaminophen 500 mg tablet RxNorm: 597248 Take 1 Tablet(s) Oral TID as needed for headache 06/18/19 Inactive acetaminophen 500 mg tablet RxNorm: 787982 Take 1 Tablet(s) Oral TID as needed for headache 06/18/19 021 Inactive Lyrica 100 mg capsule RxNorm: 986549 Take 1 Capsule(s) Oral QHS every night at bedtime 06/11/19 021 Inactive Lyrica 50 mg capsule RxNorm: 728923 Take 1 Capsule(s) Oral QAM every morning 06/10/19 21 021 Inactive hydrocortisone 2.5 % topical cream RxNorm: 210736 Apply to bilateral groin creases Topical BID 05/15/20 20 021 Inactive clotrimazole 1 % topical cream RxNorm: 674770 Apply to bilateral groin areas Topical BID 05/15/20 20 021 Inactive Lyrica 50 mg capsule RxNorm: 179206 Take 1 Capsule(s) Oral QAM every morning 05/14/20 20 020 Inactive Lyrica 100 mg capsule RxNorm: 075649 Take 1 Capsule(s) Oral QHS every night [...] Inactive Nystop 100,000 unit/gram topical powder RxNorm: 407180 Apply to abd folds, under breasts and L side of groin Topical BID x 14 days, then BID PRN 04/08/20 20 021 Inactive dx: yeast dermatitis Lyrica 100 mg capsule RxNorm: 321855 Take 1 Capsule(s) Oral QHS every night at bedtime 03/13/20 20 Inactive Lyrica 50 mg capsule RxNorm: 223015 Take 1 Capsule(s) Oral QAM every morning 03/13/20 20 Inactive ketoconazole 2 % shampoo RxNorm: 948780 Apply Topical two times a week with showers 03/11/20 20 Inactive cholecalciferol (vitamin D3) 50 mcg (2,000 unit) tablet RxNorm: 768922 Take 1 Tablet(s) Oral QD 03/11/20 20 Inactive Zetia 10 mg tablet RxNorm: 982439 Take 1 Tablet(s) Oral QD 03/07/20 20 021 Inactive Zetia 10 mg tablet RxNorm: 327645 Take 1 Tablet(s) Oral QD 03/07/20 20 020 Inactive Lyrica 50 mg capsule RxNorm: 508114 Take 1 Capsule(s) Oral QAM every morning 02/15/20 20 Inactive Lyrica 100 mg capsule RxNorm: 378019 Take 1 Capsule(s) Oral QHS every night at bedtime 02/15/20 Inactive Lyrica 100 mg capsule RxNorm: 811963 Take 1 Capsule(s) Oral QHS every night at bedtime 02/15/20 Inactive Lyrica 50 mg capsule RxNorm: 618780 Take 1 Capsule(s) Oral QAM every morning [...] Referral[facility] [address] [id number] Referral Records Received 09/21/2022 Referral: [facility] WPtel: [address] [facility] [address] [id number] [place] Referral Completed 05/28/2021 Patient Education: Patient [...] a hospitalization 05/2021 he moved to the [facility] to have closer nursing attention.??Sister Jyotsna involved in his care cell# [phone]??Guardian: Don (tapan met in person 09/01/21), now has Lexii (same group as don)Lab Schedule: * 10/06/2022
--- OUTSIDE RECORDS SUMMARY | 2022-11-09 23:17 | XMS_ITS | CCD ---
Author Name Sandra aMndujano CNP Address [address] [place] [address] Phone Organization [facility] Phone Care Team Providers Care Senior Counsel Name Role Phone Rosalina Shirley PA-C Primary Care Provider Unavailabl e Rosalina Shirley PA-C Chronic Care Management Unavaila ble Summary Purpose DataExchange Insurance Providers Payer name Policy type / Coverage type Covered alliance party ID Effective Begin Date Effective End Date Medicare [place] Medicare Part B [id number] Unknown Unknown Medicaid [place] Medicare Part B [id number] Unknown Unknown Family history Runs in the family Diagnosis Age At Onset No Known Diseases N/A Social History Social History Element Codes Description Effec tive Dates Living arrangements Unknown Fdc 09/03/[address]: 1666332 Non-Smoker / No History of Smoking 09/02/[address]: 593501972 No Alcohol Consum ption 09/02/2020 Allergies, Adverse [...] 02/10/2021 Active Coronary artery disease invo lving [place] coronary artery of [place] heart, angina presence unspecified ICD-10: I25.10 ICD-9: [...] ICD-10: M10 .30 ICD-9: 274.10 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 ICD-10: Z79.4 [...] Instructions aspirin 81 mg tablet,delayed release RxNorm: 227457 Take 1 Tablet(s) Oral QD 03/31/20 022 Active Vitamin D2 1,250 mcg (50,000 unit) capsule RxNorm: 3937361 Take 1 Capsule(s) Oral QW once a week x 12 weeks 03/31/20 022 Inactive Vitamin D2 1,250 mcg (50,000 unit) capsule RxNorm: 5134279 Take 1 Capsule(s) Oral QW once a week 03/31/20 021 Inactive Zetia 10 mg tablet RxNorm: 285269 Take 1 Tablet(s) Oral QD 03/31/20 022 Active Zetia 10 mg tablet RxNorm: 340360 Take 1 Tablet(s) Oral QD 11 Inactive hydralazine 25 mg tablet RxNorm: 061864 Take 1 Tablet(s) Oral QID 03/31/20 Inactive hydralazine 25 mg tablet RxNorm: 170562 Take 1 Tablet(s) Oral QID 03/31/20 Inactive hydralazine 10 mg tablet RxNorm: 379859 Take 1 Tablet(s) Oral QID 03/03/20 Inactive cephalexin 500 mg tablet RxNorm: 662040 Take 1 Tablet(s) Oral QID 02/27/20 Inactive cephalexin 500 mg tablet RxNorm: 291437 Take 1 Tablet(s) Oral QID 02/27/20 Inactive lisinopril 40 mg tablet RxNorm: 436835 Take 1 Tablet(s) Oral QD 02/11/20 022 Active Eliquis 5 mg tablet RxNorm: 8722474 Take 1 Tablet(s) Oral BID 01/05/20 022 Active Eliquis 5 mg tablet RxNorm: 3738843 Take 2 Tablet(s) Oral QD 01/01/20 Inactive Lyrica 50 mg capsule RxNorm: 696347 Take 1 Capsule(s) Oral QAM every morning 12/24/19 021 Inactive Lyrica 100 mg capsule RxNorm: 529342 Take 1 Capsule(s) Oral QHS every night at bedtime 12/24/19 021 Inactive clotrimazole 1 % topical cream RxNorm: 194124 Apply to right foot and toes Topical BID 12/04/19 21 021 Inactive metoprolol succinate ER 200 mg tablet,extended release 24 hr RxNorm: 189405 Take 1 Tablet(s) Oral QD 12/04/19 022 Inactive ciprofloxacin 500 mg tablet RxNorm: 475730 Take 1 Tablet(s) Oral QD 11/30/19 21 021 Inactive DX ofloxacin otic drops Accu-Chek Guide test strips RxNorm: USE 1 TO CHECK GLUCOSE 4 TIMES DAILY AND NEEDED 11/15/19 Inactive Blood Glucose Test strips RxNorm: Use 1 Test Strip QID at PRN 11/05/19 Inactive E11.42 lisinopril 30 mg tablet RxNorm: 044684 Take 1 Tablet(s) Oral QD 10/30/19 021 Inactive lisinopril 20 mg tablet RxNorm: 425327 Take 1 Tablet(s) Oral QD 10/23/19 021 Inactive lisinopril 20 mg tablet RxNorm: 501217 Take 1 Tablet(s) Oral QD 10/23/19 021 Inactive lisinopril 10 mg tablet RxNorm: 380849 Take 1 Tablet(s) Oral QD 10/02/19 Inactive icosapent ethyl 1 gram capsule RxNorm: 3006718 Take 2 Capsule(s) (2 gm) Oral BID with meals 09/12/19 022 Inactive Okay to dispense one 2gm tab if you have that available. icosapent ethyl 1 gram capsule RxNorm: 2431802 Take 2 Capsule(s) Oral BID 09/12/19 021 Inactive Okay to dispense one 2gm tab if you have that available. amlodipine 10 mg tablet RxNorm: 429373 Take 1 Tablet(s) Oral QD 09/04/19 022 Inactive Levemir FlexTouch U-100 Insulin 100 unit/mL (3 mL) subcutaneous pen RxNorm: 015320 Inject 150 Unit(s) Subcutaneous BID 09/04/19 022 Inactive venlafaxine ER 150 mg tablet,extended release 24 hr RxNorm: 549846 Take 1 Tablet(s) Oral QD 09/04/19 21 021 Inactive aspirin 81 mg tablet,delayed release RxNorm: 687081 Take 1 Tablet(s) Oral QD 09/04/19 21 021 Inactive clotrimazole-betame thasone 1 %-0.05 % topical cream RxNorm: 066727 Apply to rash on red area on left abdomen/chest Topical BID 08/10/19 21 04/19/2 021 Inactive amlodipine 5 mg tablet RxNorm: 298543 Take 1 Tablet(s) Oral QD 07/31/19 21 Inactive cephalexin 500 mg tablet RxNorm: 364392 Take 1 Tablet(s) Oral BID BID - Twice Daily 07/31/19 21 Inactive Start 08/01/20 pantoprazole 40 mg tablet,delayed release RxNorm: 649248 Take 1 Tablet(s) Oral QAM every morning 07/08/19 Inactive senna 8.6 mg tablet RxNorm: 862077 Take 1 Tablet(s) Oral QD 07/08/19 022 Inactive Novolog Flexpen U-100 Insulin aspart 100 unit/mL (3 mL) subcutaneous RxNorm: 0643323 Administer per sliding scale Milliliter(s) Subcutaneous TID 151-200: 10 u; 201-250: 20 u; 251-300: 30 u; 301-350: 40 u; 351-400: 50 u. 07/08/19 022 Inactive Novolog Flexpen U-100 Insulin aspart 100 unit/mL (3 mL) subcutaneous RxNorm: 8839599 Inject 85 Unit(s) Subcutaneous TID 07/08/19 Inactive pravastatin 80 mg tablet RxNorm: 035680 Take 1 Tablet(s) Oral QHS every night at bedtime 07/08/19 Inactive clotrimazole 1 % topical cream RxNorm: 621507 Apply to bilateral groin areas Topical BID 07/08/19 022 Inactive carbamazepine 200 mg tablet RxNorm: 820459 Take 1 Tablet(s) Oral BID 07/08/19 022 Inactive torsemide 20 mg tablet RxNorm: 162984 Take 1 Tablet(s) Oral QD 07/08/19 022 Inactive clopidogrel 75 mg tablet RxNorm: 161548 Take 1 Tablet(s) Oral QD 07/08/19 021 Inactive Blood Glucose Test strips RxNorm: Use 1 Test Strip QID at PRN 07/08/19 Inactive E11.42 lisinopril 5 mg tablet RxNorm: 498842 Take 1 Tablet(s) Oral QD 07/08/19 021 Inactive metoprolol succinate ER 200 mg tablet,extended release 24 hr RxNorm: 647033 Take 1 Tablet(s) Oral QD 07/08/19 021 Inactive Vitamin D3 25 mcg (1,000 unit) tablet RxNorm: 075117 Take 1 Tablet(s) Oral QD 07/08/19 021 Inactive isosorbide dinitrate 30 mg tablet RxNorm: 294985 Take 1 Tablet(s) Oral QD 07/08/19 021 Inactive Levemir FlexTouch U-100 Insulin 100 unit/mL (3 mL) subcutaneous pen RxNorm: 496769 Inject 140 Unit(s) Subcutaneous BID 07/08/19 Inactive venlafaxine 75 mg tablet RxNorm: 863951 Take 1 Tablet(s) Oral QD 07/08/19 Inactive acetaminophen 500 mg tablet RxNorm: 672617 Take 1 Tablet(s) Oral TID as needed for headache 06/18/19 Inactive acetaminophen 500 mg tablet RxNorm: 405429 Take 1 Tablet(s) Oral TID as needed for headache 06/18/19 Inactive Lyrica 100 mg capsule RxNorm: 430443 Take 1 Capsule(s) Oral QHS every night at bedtime 06/11/19 021 Inactive Lyrica 50 mg capsule RxNorm: 520735 Take 1 Capsule(s) Oral QAM every morning 06/10/19 021 Inactive hydrocortisone 2.5 % topical cream RxNorm: 832057 Apply to bilateral groin creases Topical BID 05/15/20 20 021 Inactive clotrimazole 1 % topical cream RxNorm: 456988 Apply to bilateral groin areas Topical BID 05/15/20 20 021 Inactive Lyrica 50 mg capsule RxNorm: 204312 Take 1 Capsule(s) Oral QAM every morning 05/14/20 20 020 Inactive Lyrica 100 mg capsule RxNorm: 842222 Take 1 Capsule(s) Oral QHS every night [...] Inactive Nystop 100,000 unit/gram topical powder RxNorm: 623944 Apply to abd folds, under breasts and L side of groin Topical BID x 14 days, then BID PRN 04/08/20 20 021 Inactive dx: yeast dermatitis Lyrica 100 mg capsule RxNorm: 228524 Take 1 Capsule(s) Oral QHS every night at bedtime 03/13/20 20 Inactive Lyrica 50 mg capsule RxNorm: 087396 Take 1 Capsule(s) Oral QAM every morning 03/13/20 20 Inactive ketoconazole 2 % shampoo RxNorm: 164275 Apply Topical two times a week with showers 03/11/20 20 Inactive cholecalciferol (vitamin D3) 50 mcg (2,000 unit) tablet RxNorm: 242265 Take 1 Tablet(s) Oral QD 03/11/20 20 021 Inactive Zetia 10 mg tablet RxNorm: 001361 Take 1 Tablet(s) Oral QD 03/07/20 20 021 Inactive Zetia 10 mg tablet RxNorm: 696621 Take 1 Tablet(s) Oral QD 03/07/20 20 020 Inactive Lyrica 50 mg capsule RxNorm: 840014 Take 1 Capsule(s) Oral QAM every morning 02/15/20 Inactive Lyrica 100 mg capsule RxNorm: 843192 Take 1 Capsule(s) Oral QHS every night at bedtime 02/15/20 Inactive Lyrica 100 mg capsule RxNorm: 908854 Take 1 Capsule(s) Oral QHS every night at bedtime 02/15/20 Inactive Lyrica 50 mg capsule RxNorm: 057371 Take 1 Capsule(s) Oral QAM every morning [...] data Encounters Encounter Performer Location Codes Date (05599) DOMICIL VISIT EST PAT Diagnosis: Seizure disorder[ICD10: [...] Diagnosis: Skin tag[ICD10: L91.8] Sandra Boston CPT-4: 28289 03/31/2021 Plan of Care Planned Activity Notes Codes Status Date Referral: Endocrinology Clin ic [facility] WPtel: [address] [id number] [place] Referral Completed 05/28/2021 Patient Education: Patient [...] his endocrinologists office. 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 HLD: Start Zetia 10mg?? . 03/31/2021
--- OUTSIDE RECORDS SUMMARY | 2022-11-09 23:17 | XMS_ITS | CCD ---
Author Name Sandra Mandujano CNP Address [address] [place] [address] Phone Organization [facility] Phone Care Team Providers Care Toolroom Clerk Name Role Phone Tapan Shirley PA-C Primary Care Provider Unavailabl e Tapan Shirley PA-C Chronic Care Management Unavaila ble Summary Purpose DataExchange Insurance Providers Payer name Policy type / Coverage type Covered democrat ID Effective Begin Date Effective End Date Medicare [place] Medicare Part B [id number] Unknown Unknown Medicaid [place] Medicare Part B [id number] Unknown Unknown Family history Runs in the family Diagnosis Age At Onset No Known Diseases N/A Social History Social History Element Codes Description Effec tive Dates Living arrangements Unknown Assisted 09/03/[address]: 3141042 Non-Smoker / No History of Smoking 09/02/[address]: 106907413 No Alcohol Consum ption 09/02/2020 Allergies, Adverse Reactions, Alerts Substance Reaction Codes Entered Date Inactivated Date Status LISINOPRIL RxNorm: 11242 02/12/2020 No Inactive Da te Active Metformin [...] 02/10/2021 Active Coronary artery disease invo lving [place] coronary artery of [place] heart, angina presence unspecified ICD-10: [...] ICD-10: M10 .30 ICD-9: 274.10 09/03/2020 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 [...] Fill Instructions hydralazine 10 mg tablet RxNorm: 046458 Take 1 Tablet(s) Oral QID 03/03/20 21 021 Inactive cephalexin 500 mg tablet RxNorm: 071116 Take 1 Tablet(s) Oral QID 02/27/20 21 021 Inactive cephalexin 500 mg tablet RxNorm: 218084 Take 1 Tablet(s) Oral QID 02/27/20 21 021 Inactive lisinopril 40 mg tablet RxNorm: 152252 Take 1 Tablet(s) Oral QD 02/11/20 21 023 Inactive Eliquis 5 mg tablet RxNorm: 7234890 Take 1 Tablet(s) Oral BID 01/05/20 21 022 Inactive Eliquis 5 mg tablet RxNorm: 1926846 Take 2 Tablet(s) Oral QD 01/01/20 21 021 Inactive Lyrica 50 mg capsule RxNorm: 585553 Take 1 Capsule(s) Oral QAM every morning 12/24/19 21 021 Inactive Lyrica 100 mg capsule RxNorm: 289446 Take 1 Capsule(s) Oral QHS every night at bedtime 12/24/19 21 021 Inactive clotrimazole 1 % topical cream RxNorm: 426790 Apply to right foot and toes Topical BID 12/04/19 21 023 Inactive metoprolol succinate ER 200 mg tablet,extended release 24 hr RxNorm: 541145 Take 1 Tablet(s) Oral QD 12/04/19 21 023 Inactive ciprofloxacin 500 mg tablet RxNorm: 845928 Take 1 Tablet(s) Oral QD 11/30/19 21 021 Inactive DX ofloxacin otic drops Accu-Chek Guide test strips RxNorm: USE 1 TO CHECK GLUCOSE 4 TIMES DAILY AND NEEDED 11/15/19 21 023 Inactive Blood Glucose Test strips RxNorm: Use 1 Test Strip QID at PRN 11/05/19 21 023 Inactive E11.42 lisinopril 30 mg tablet RxNorm: 921821 Take 1 Tablet(s) Oral QD 10/30/19 021 Inactive lisinopril 20 mg tablet RxNorm: 193879 Take 1 Tablet(s) Oral QD 10/23/19 21 021 Inactive lisinopril 20 mg tablet RxNorm: 729672 Take 1 Tablet(s) Oral QD 10/23/19 21 021 Inactive lisinopril 10 mg tablet RxNorm: 377789 Take 1 Tablet(s) Oral QD 10/02/19 21 021 Inactive icosapent ethyl 1 gram capsule RxNorm: 7013574 Take 2 Capsule(s) (2 gm) Oral BID with meals 09/12/19 21 022 Inactive Okay to dispense one 2gm tab if you have that available. icosapent ethyl 1 gram capsule RxNorm: 6260383 Take 2 Capsule(s) Oral BID 09/12/19 21 Inactive Okay to dispense one 2gm tab if you have that available. amlodipine 10 mg tablet RxNorm: 516700 Take 1 Tablet(s) Oral QD 09/04/19 21 Inactive Levemir FlexTouch U-100 Insulin 100 unit/mL (3 mL) subcutaneous pen RxNorm: 529789 Inject 150 Unit(s) Subcutaneous BID 09/04/19 21 Inactive venlafaxine ER 150 mg tablet,extended release 24 hr RxNorm: 710596 Take 1 Tablet(s) Oral QD 09/04/19 21 Inactive aspirin 81 mg tablet,delayed release RxNorm: 780686 Take 1 Tablet(s) Oral QD 09/04/19 Inactive clotrimazole-betame thasone 1 %-0.05 % topical cream RxNorm: 823602 Apply to rash on red area on left abdomen/chest Topical BID 08/10/19 Inactive amlodipine 5 mg tablet RxNorm: 534087 Take 1 Tablet(s) Oral QD 07/31/19 Inactive cephalexin 500 mg tablet RxNorm: 441852 Take 1 Tablet(s) Oral BID BID - Twice Daily 07/31/19 21 021 Inactive Start 08/01/20 pantoprazole 40 mg tablet,delayed release RxNorm: 458047 Take 1 Tablet(s) Oral QAM every morning 07/08/19 022 Inactive senna 8.6 mg tablet RxNorm: 338467 Take 1 Tablet(s) Oral QD 07/08/19 022 Inactive Novolog Flexpen U-100 Insulin aspart 100 unit/mL (3 mL) subcutaneous RxNorm: 0714321 Administer per sliding scale Milliliter(s) Subcutaneous TID 151-200: 10 u; 201-250: 20 u; 251-300: 30 u; 301-350: 40 u; 351-400: 50 u. 07/08/19 21 022 Inactive Novolog Flexpen U-100 Insulin aspart 100 unit/mL (3 mL) subcutaneous RxNorm: 6154701 Inject 85 Unit(s) Subcutaneous TID 07/08/19 21 022 Inactive pravastatin 80 mg tablet RxNorm: 037266 Take 1 Tablet(s) Oral QHS every night at bedtime 07/08/19 022 Inactive clotrimazole 1 % topical cream RxNorm: 185360 Apply to bilateral groin areas Topical BID 07/08/19 21 022 Inactive carbamazepine 200 mg tablet RxNorm: 898157 Take 1 Tablet(s) Oral BID 07/08/19 022 Inactive torsemide 20 mg tablet RxNorm: 596710 Take 1 Tablet(s) Oral QD 07/08/19 21 023 Inactive clopidogrel 75 mg tablet RxNorm: 132311 Take 1 Tablet(s) Oral QD 07/08/19 021 Inactive Blood Glucose Test strips RxNorm: Use 1 Test Strip QID at PRN 07/08/19 21 021 Inactive E11.42 lisinopril 5 mg tablet RxNorm: 245438 Take 1 Tablet(s) Oral QD 07/08/19 021 Inactive metoprolol succinate ER 200 mg tablet,extended release 24 hr RxNorm: 962325 Take 1 Tablet(s) Oral QD 07/08/19 021 Inactive Vitamin D3 25 mcg (1,000 unit) tablet RxNorm: 526262 Take 1 Tablet(s) Oral QD 07/08/19 021 Inactive isosorbide dinitrate 30 mg tablet RxNorm: 712697 Take 1 Tablet(s) Oral QD 07/08/19 021 Inactive Levemir FlexTouch U-100 Insulin 100 unit/mL (3 mL) subcutaneous pen RxNorm: 665998 Inject 140 Unit(s) Subcutaneous BID 07/08/19 021 Inactive venlafaxine 75 mg tablet RxNorm: 337652 Take 1 Tablet(s) Oral QD 07/08/19 021 Inactive acetaminophen 500 mg tablet RxNorm: 941348 Take 1 Tablet(s) Oral TID as needed for headache 06/18/19 021 Inactive acetaminophen 500 mg tablet RxNorm: 165592 Take 1 Tablet(s) Oral TID as needed for headache 06/18/19 21 021 Inactive Lyrica 100 mg capsule RxNorm: 281046 Take 1 Capsule(s) Oral QHS every night at bedtime 06/11/19 21 021 Inactive Lyrica 50 mg capsule RxNorm: 464377 Take 1 Capsule(s) Oral QAM every morning 06/10/19 21 021 Inactive hydrocortisone 2.5 % topical cream RxNorm: 482717 Apply to bilateral groin creases Topical BID 05/15/20 20 021 Inactive clotrimazole 1 % topical cream RxNorm: 699972 Apply to bilateral groin areas Topical BID 05/15/20 20 021 Inactive Lyrica 50 mg capsule RxNorm: 003936 Take 1 Capsule(s) Oral QAM every morning 05/14/20 20 020 Inactive Lyrica 100 mg capsule RxNorm: 439345 Take 1 Capsule(s) Oral QHS every night [...] Inactive Nystop 100,000 unit/gram topical powder RxNorm: 497961 Apply to abd folds, under breasts and L side of groin Topical BID x 14 days, then BID PRN 04/08/20 20 021 Inactive dx: yeast dermatitis Lyrica 100 mg capsule RxNorm: 391386 Take 1 Capsule(s) Oral QHS every night at bedtime 03/13/20 20 Inactive Lyrica 50 mg capsule RxNorm: 954749 Take 1 Capsule(s) Oral QAM every morning 03/13/20 20 Inactive ketoconazole 2 % shampoo RxNorm: 105577 Apply Topical two times a week with showers 03/11/20 Inactive cholecalciferol (vitamin D3) 50 mcg (2,000 unit) tablet RxNorm: 573983 Take 1 Tablet(s) Oral QD 03/11/20 20 Inactive Zetia 10 mg tablet RxNorm: 711335 Take 1 Tablet(s) Oral QD 03/07/20 20 Inactive Zetia 10 mg tablet RxNorm: 858428 Take 1 Tablet(s) Oral QD 03/07/20 20 Inactive Lyrica 50 mg capsule RxNorm: 494982 Take 1 Capsule(s) Oral QAM every morning 02/15/20 20 Inactive Lyrica 100 mg capsule RxNorm: 703292 Take 1 Capsule(s) Oral QHS every night at bedtime 02/15/20 Inactive Lyrica 100 mg capsule RxNorm: 869209 Take 1 Capsule(s) Oral QHS every night at bedtime 02/15/20 20 Inactive Lyrica 50 mg capsule RxNorm: 266164 Take 1 Capsule(s) Oral QAM every morning [...] Codes Date REMOVE SKIN TAGS ADD-ON CPT-4: 92548 03/03/20 21 Reason For Visit No Reason For Visit data Encounters Encounter Performer Location Location Address Codes Date (20617) DOMICIL VISIT EST PAT Diagnosis: History of [...] deficiency[ICD10: E55.9] Diagnosis: Cellulitis[ICD10: L03.90] Sandra Mandujano [facility] [address] [place] [address] CPT-4: 79950 03/03/2021 Plan of Care Planned Activity Notes Codes Status Date Referral: [facility] WPtel: [address] , [address] [id number] Referral Records Received 09/21/2022 Referral: [facility]ology [facility] WPtel: [address] [id number] [place] Referral Completed 05/28/2021 Patient Education: Patient M edication Summary Completed 03/03/2021 Patient Education: Influenza Vaccine Completed 03/03/2021 Referral: General Cardiology Referral Complet ed 01/03/2021 Referral: General Psychologist Referral Close d Instructions Comment Date Leonid is a?? Male being seen living at [facility]. Initial BPS visit 01/2020. PMHx including DMII, CAD w/ 5 stents, Depression, Seizure Disorder and CKD stage 3. He moved into [facility] in 12/2019 but after a hospitalization 05/2021 he moved to the [facility] to have closer nursing attention.??Sister Jyotsna involved in his care cell# [phone]??Guardian: Don (tapan met in person 09/01/21), now has Lexii (same group as don)Lab Schedule: * 10/06/2022 Diabetes Checking lipid panel and CMP.?? [...] arm/axilla treated with liquid nitrogen without complication.?? . 03/03/2021
--- OUTSIDE RECORDS SUMMARY | 2022-11-09 23:18 | XMS_ITS | CCD ---
Author Name Sandra Mandujano CNP Address [address] [place] [address] Phone Organization [facility] Phone Care Team Providers Care Geospatial Extractor Analysis Name Role Phone Tapan Shirley PA-C Primary Care Provider Unavailabl e Tapan Shirley PA-C Chronic Care Management Unavaila ble Summary Purpose DataExchange Insurance Providers Payer name Policy type / Coverage type Covered democrat ID Effective Begin Date Effective End Date Medicare [place] Medicare Part B [id number] Unknown Unknown Medicaid [place] Medicare Part B [id number] Unknown Unknown Family history Runs in the family Diagnosis Age At Onset No Known Diseases N/A Social History Social History Element Codes Description Effec tive Dates Living arrangements Unknown Usp 09/03/[address]: 8990810 Non-Smoker / No History of Smoking 09/02/[address]: 213082468 No Alcohol Consum ption 09/02/2020 Allergies, Adverse Reactions, Alerts Substance Reaction Codes Entered Date Inactivated Date Status LISINOPRIL RxNorm: 45341 02/12/2020 No Inactive Da te Active Metformin [...] 02/10/2021 Active Coronary artery disease invo lving [place] coronary artery of [place] heart, angina presence unspecified ICD-10: I25.10 ICD-9: [...] ICD-10: M10 .30 ICD-9: 274.10 09/03/2020 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 ICD-10: Z79.4 09/03 [...] Fill Instructions hydralazine 50 mg tablet RxNorm: 105222 Take 1 Tablet(s) Oral QID 05/05/20 21 022 Inactive venlafaxine ER 225 mg tablet,extended release 24 hr RxNorm: 235408 Take 1 Tablet(s) Oral QD 05/05/20 21 021 Inactive venlafaxine ER 225 mg tablet,extended release 24 hr RxNorm: 624452 Take 1 Tablet(s) Oral QD 05/05/20 21 022 Inactive isosorbide mononitrate ER 30 mg tablet,extended release 24 hr RxNorm: 514310 Take 1 Tablet(s) Oral QD 05/05/20 21 No Stop Date Active hydralazine 50 mg tablet RxNorm: 544077 Take 1 Tablet(s) Oral QID 05/05/20 21 Inactive aspirin 81 mg tablet,delayed release RxNorm: 805068 Take 1 Tablet(s) Oral QD 03/31/20 Inactive Vitamin D2 1,250 mcg (50,000 unit) capsule RxNorm: 7884827 Take 1 Capsule(s) Oral QW once a week x 12 weeks 03/31/20 Inactive Zetia 10 mg tablet RxNorm: 982433 Take 1 Tablet(s) Oral QD 03/31/20 Inactive Vitamin D2 1,250 mcg (50,000 unit) capsule RxNorm: 2053763 Take 1 Capsule(s) Oral QW once a week 03/31/20 Inactive Zetia 10 mg tablet RxNorm: 993353 Take 1 Tablet(s) Oral QD 03/31/20 Inactive hydralazine 25 mg tablet RxNorm: 416236 Take 1 Tablet(s) Oral QID 03/31/20 021 Inactive hydralazine 25 mg tablet RxNorm: 669924 Take 1 Tablet(s) Oral QID 03/31/20 021 Inactive hydralazine 10 mg tablet RxNorm: 290084 Take 1 Tablet(s) Oral QID 03/03/20 021 Inactive cephalexin 500 mg tablet RxNorm: 416800 Take 1 Tablet(s) Oral QID 02/27/20 021 Inactive cephalexin 500 mg tablet RxNorm: 296721 Take 1 Tablet(s) Oral QID 02/27/20 021 Inactive lisinopril 40 mg tablet RxNorm: 818617 Take 1 Tablet(s) Oral QD 02/11/20 21 023 Inactive Eliquis 5 mg tablet RxNorm: 5138908 Take 1 Tablet(s) Oral BID 01/05/20 21 022 Inactive Eliquis 5 mg tablet RxNorm: 5414308 Take 2 Tablet(s) Oral QD 01/01/20 21 021 Inactive Lyrica 50 mg capsule RxNorm: 543725 Take 1 Capsule(s) Oral QAM every morning 12/24/19 21 021 Inactive Lyrica 100 mg capsule RxNorm: 758921 Take 1 Capsule(s) Oral QHS every night at bedtime 12/24/19 021 Inactive clotrimazole 1 % topical cream RxNorm: 097869 Apply to right foot and toes Topical BID 12/04/19 21 023 Inactive metoprolol succinate ER 200 mg tablet,extended release 24 hr RxNorm: 476100 Take 1 Tablet(s) Oral QD 12/04/19 21 023 Inactive ciprofloxacin 500 mg tablet RxNorm: 640188 Take 1 Tablet(s) Oral QD 11/30/19 21 021 Inactive DX ofloxacin otic drops Accu-Chek Guide test strips RxNorm: USE 1 TO CHECK GLUCOSE 4 TIMES DAILY AND NEEDED 11/15/19 21 023 Inactive Blood Glucose Test strips RxNorm: Use 1 Test Strip QID at PRN 11/05/19 21 023 Inactive E11.42 lisinopril 30 mg tablet RxNorm: 786505 Take 1 Tablet(s) Oral QD 10/30/19 021 Inactive lisinopril 20 mg tablet RxNorm: 485575 Take 1 Tablet(s) Oral QD 10/23/19 21 021 Inactive lisinopril 20 mg tablet RxNorm: 489587 Take 1 Tablet(s) Oral QD 10/23/19 021 Inactive lisinopril 10 mg tablet RxNorm: 003626 Take 1 Tablet(s) Oral QD 10/02/19 021 Inactive icosapent ethyl 1 gram capsule RxNorm: 7657979 Take 2 Capsule(s) (2 gm) Oral BID with meals 09/12/19 21 022 Inactive Okay to dispense one 2gm tab if you have that available. icosapent ethyl 1 gram capsule RxNorm: 0995879 Take 2 Capsule(s) Oral BID 09/12/19 21 021 Inactive Okay to dispense one 2gm tab if you have that available. amlodipine 10 mg tablet RxNorm: 139584 Take 1 Tablet(s) Oral QD 09/04/19 022 Inactive Levemir FlexTouch U-100 Insulin 100 unit/mL (3 mL) subcutaneous pen RxNorm: 967258 Inject 150 Unit(s) Subcutaneous BID 09/04/19 21 Inactive aspirin 81 mg tablet,delayed release RxNorm: 303341 Take 1 Tablet(s) Oral QD 09/04/19 Inactive venlafaxine ER 150 mg tablet,extended release 24 hr RxNorm: 759011 Take 1 Tablet(s) Oral QD 09/04/19 Inactive clotrimazole-betame thasone 1 %-0.05 % topical cream RxNorm: 585739 Apply to rash on red area on left abdomen/chest Topical BID 08/10/19 Inactive amlodipine 5 mg tablet RxNorm: 541668 Take 1 Tablet(s) Oral QD 07/31/19 Inactive cephalexin 500 mg tablet RxNorm: 712126 Take 1 Tablet(s) Oral BID BID - Twice Daily 07/31/19 Inactive Start 08/01/20 pantoprazole 40 mg tablet,delayed release RxNorm: 080984 Take 1 Tablet(s) Oral QAM every morning 07/08/19 Inactive senna 8.6 mg tablet RxNorm: 575114 Take 1 Tablet(s) Oral QD 07/08/19 Inactive Novolog Flexpen U-100 Insulin aspart 100 unit/mL (3 mL) subcutaneous RxNorm: 7835465 Administer per sliding scale Milliliter(s) Subcutaneous TID 151-200: 10 u; 201-250: 20 u; 251-300: 30 u; 301-350: 40 u; 351-400: 50 u. 07/08/19 Inactive Novolog Flexpen U-100 Insulin aspart 100 unit/mL (3 mL) subcutaneous RxNorm: 1661507 Inject 85 Unit(s) Subcutaneous TID 07/08/19 022 Inactive pravastatin 80 mg tablet RxNorm: 213920 Take 1 Tablet(s) Oral QHS every night at bedtime 07/08/19 022 Inactive clotrimazole 1 % topical cream RxNorm: 267014 Apply to bilateral groin areas Topical BID 07/08/19 21 Inactive carbamazepine 200 mg tablet RxNorm: 163617 Take 1 Tablet(s) Oral BID 07/08/19 21 022 Inactive torsemide 20 mg tablet RxNorm: 239087 Take 1 Tablet(s) Oral QD 07/08/19 21 023 Inactive clopidogrel 75 mg tablet RxNorm: 322886 Take 1 Tablet(s) Oral QD 07/08/19 021 Inactive Blood Glucose Test strips RxNorm: Use 1 Test Strip QID at PRN 07/08/19 21 Inactive E11.42 lisinopril 5 mg tablet RxNorm: 593192 Take 1 Tablet(s) Oral QD 07/08/19 021 Inactive metoprolol succinate ER 200 mg tablet,extended release 24 hr RxNorm: 009249 Take 1 Tablet(s) Oral QD 07/08/19 021 Inactive Vitamin D3 25 mcg (1,000 unit) tablet RxNorm: 811303 Take 1 Tablet(s) Oral QD 07/08/19 021 Inactive isosorbide dinitrate 30 mg tablet RxNorm: 069931 Take 1 Tablet(s) Oral QD 07/08/19 021 Inactive Levemir FlexTouch U-100 Insulin 100 unit/mL (3 mL) subcutaneous pen RxNorm: 033209 Inject 140 Unit(s) Subcutaneous BID 07/08/19 021 Inactive venlafaxine 75 mg tablet RxNorm: 418314 Take 1 Tablet(s) Oral QD 07/08/19 021 Inactive acetaminophen 500 mg tablet RxNorm: 057091 Take 1 Tablet(s) Oral TID as needed for headache 06/18/19 021 Inactive acetaminophen 500 mg tablet RxNorm: 425389 Take 1 Tablet(s) Oral TID as needed for headache 06/18/19 21 021 Inactive Lyrica 100 mg capsule RxNorm: 647544 Take 1 Capsule(s) Oral QHS every night at bedtime 06/11/19 21 021 Inactive Lyrica 50 mg capsule RxNorm: 064197 Take 1 Capsule(s) Oral QAM every morning 06/10/19 21 021 Inactive hydrocortisone 2.5 % topical cream RxNorm: 194080 Apply to bilateral groin creases Topical BID 05/15/20 20 021 Inactive clotrimazole 1 % topical cream RxNorm: 956448 Apply to bilateral groin areas Topical BID 05/15/20 20 021 Inactive Lyrica 50 mg capsule RxNorm: 739148 Take 1 Capsule(s) Oral QAM every morning 05/14/20 20 020 Inactive Lyrica 100 mg capsule RxNorm: 708084 Take 1 Capsule(s) Oral QHS every night [...] Inactive Nystop 100,000 unit/gram topical powder RxNorm: 675566 Apply to abd folds, under breasts and L side of groin Topical BID x 14 days, then BID PRN 04/08/20 20 021 Inactive dx: yeast dermatitis Lyrica 100 mg capsule RxNorm: 768604 Take 1 Capsule(s) Oral QHS every night at bedtime 03/13/20 20 020 Inactive Lyrica 50 mg capsule RxNorm: 437839 Take 1 Capsule(s) Oral QAM every morning 03/13/20 20 Inactive ketoconazole 2 % shampoo RxNorm: 797826 Apply Topical two times a week with showers 03/11/20 Inactive cholecalciferol (vitamin D3) 50 mcg (2,000 unit) tablet RxNorm: 365801 Take 1 Tablet(s) Oral QD 03/11/20 Inactive Zetia 10 mg tablet RxNorm: 037175 Take 1 Tablet(s) Oral QD 03/07/20 Inactive Zetia 10 mg tablet RxNorm: 091625 Take 1 Tablet(s) Oral QD 03/07/20 Inactive Lyrica 50 mg capsule RxNorm: 485834 Take 1 Capsule(s) Oral QAM every morning 02/15/20 Inactive Lyrica 100 mg capsule RxNorm: 549532 Take 1 Capsule(s) Oral QHS every night at bedtime 02/15/20 Inactive Lyrica 100 mg capsule RxNorm: 865655 Take 1 Capsule(s) Oral QHS every night at bedtime 02/15/20 Inactive Lyrica 50 mg capsule RxNorm: 109629 Take 1 Capsule(s) Oral QAM every morning [...] Result Date S ervice Location PHQ-9 PHQ9 [id number] [id number] 05/05/2021 Unknown Procedures Procedure Codes Date SYS BP > OR = 140 CPT-4: G8753 05/05/2021 CUI BP LESS 90 CPT-4: G8754 05/05/2021 POS CLIN DEPRES SCRN F/U DOC SNOMED CT: 34468543 CPT-4: G8431 05/05/2021 Vital Signs Date Vital 05/05/2021 Blood Pressure 1: 147/81 Code: 8480-6 Heart Rate 1: 74 bpm Code: 8867-4 Respiratory Rate: 16 bpm Temperature: 36.7 (C) / 98.0 (F) Weight: 417 lbs 10 oz Code: 3141-9 Reason For Visit No Reason For Visit data Encounters Encounter Performer Location Location Address Codes Date (95766) DOMICIL VISIT EST PAT Diagnosis: Seizure disorder[ICD10: G40.909] Diagnosis: Depression[ICD10: F32.9] Diagnosis: Hypertension associated with diabetes[ICD10: E11.59] Diagnosis: Hyperlipidemia associated with type 2 diabetes mellitus[ICD10: E11.69] Diagnosis: Stage 2 chronic 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[ICD10: E11.22] Diagnosis: Type 2 diabetes mellitus with diabetic polyneuropathy, with long-term current use of insulin[ICD10: E11.42] Diagnosis: Learning disability[ICD10: F81.9] [facility] [address] [place] [address] CPT-4: 94756 05/05/2021 Plan of Care Planned Activity Notes Codes Status Date Referral: [facility] WPtel: [address], [address] [id number] [place] Referral Records Received 09/21/2022 Referral: [facility] WPtel: [address] [id number] [place] Referral Completed 05/28/2021 Patient Education: Patient M edication Summary Completed 05/05/2021 Patient Education: Alzheimer''s Disease Completed 05/05/2021 Patient Education: Influenza Vaccine Completed 05/05/2021 Patient Education: Dementia Complete d 05/05/2021 Referral: General Cardiology Referral Complet ed 01/03/2021 Referral: General Psychologist Referral Close d Instructions Comment Date Leonid is a?? Male being seen living at [facility]. Initial BPS visit 01/2020. PMHx including DMII, CAD w/ 5 stents, Depression, Seizure Disorder and CKD stage 3. He moved into [facility] in 12/2019 but after a hospitalization 05/2021 he moved to the [facility] to have closer nursing attention.??Sister Jyotsna involved in his care cell# [phone]??Guardian: Don (tapan met in person 09/01/21), now has Lexii (same group as don)Lab Schedule: * 10/06/2022 Diabetes HTN: Increasing Hydralazine to 50mg Epilepsy No recent changes in seizure activity. Stable, continue current treatment plan.?? Learning disability Patient lives in an appropriate setting for their needs. Patient receives help from 24/hr intranet support. Depression Increasing Venlafaxine . 05/05/2021
--- OUTSIDE RECORDS SUMMARY | 2022-11-09 23:18 | XMS_ITS | CCD ---
Author Name Unknown Organization Unknown Care Team Providers Care Aviation Project Manager Name Role Phone Tapan Shirley PA-C Primary Care Provider Unavailabl e Tapan Shirley PA-C Chronic Care Management Unavaila ble Summary Purpose DataExchange Insurance Providers Payer name Policy type / Coverage type Covered alliance party ID Effective Begin Date Effective End Date Medicare [place] Medicare Part B [id number] Unknown Unknown Medicaid [place] Medicare [place] B [id number] Unknown Unknown Family history Runs in the family Diagnosis Age At Onset No Known Diseases N/A Social History Social History Element Codes Description Effec tive Dates Living arrangements Unknown Custodial 09/03/[address]: 7764586 Non-Smoker / No History of Smoking 09/02/[address]: 871603485 No Alcohol Consum ption 09/02/2020 Allergies, Adverse Reactions, Alerts Substance Reaction Codes Entered Date Inactivated Date Status LISINOPRIL RxNorm: 42353 02/12/2020 No Inactive Da te Active Metformin [...] 02/10/2021 Active Coronary artery disease invo lving [place] coronary artery of [place] heart, angina presence unspecified ICD-10: I25.10 ICD-9: [...] ICD-10: M10 .30 ICD-9: 274.10 09/03/2020 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 [...] Fill Instructions hydralazine 50 mg tablet RxNorm: 940966 Take 1 Tablet(s) Oral QID 05/05/20 21 022 Inactive venlafaxine ER 225 mg tablet,extended release 24 hr RxNorm: 198803 Take 1 Tablet(s) Oral QD 05/05/20 21 021 Inactive venlafaxine ER 225 mg tablet,extended release 24 hr RxNorm: 929723 Take 1 Tablet(s) Oral QD 05/05/20 21 022 Inactive isosorbide mononitrate ER 30 mg tablet,extended release 24 hr RxNorm: 682023 Take 1 Tablet(s) Oral QD 05/05/20 21 No Stop Date Active hydralazine 50 mg tablet RxNorm: 435443 Take 1 Tablet(s) Oral QID 05/05/20 21 021 Inactive aspirin 81 mg tablet,delayed release RxNorm: 946652 Take 1 Tablet(s) Oral QD 11/15 022 Inactive Vitamin D2 1,250 mcg (50,000 unit) capsule RxNorm: 6444077 Take 1 Capsule(s) Oral QW once a week x 12 weeks 03/31/20 Inactive Zetia 10 mg tablet RxNorm: 864971 Take 1 Tablet(s) Oral QD 03/31/20 022 Inactive Vitamin D2 1,250 mcg (50,000 unit) capsule RxNorm: 0726345 Take 1 Capsule(s) Oral QW once a week 03/31/20 Inactive Zetia 10 mg tablet RxNorm: 495046 Take 1 Tablet(s) Oral QD 03/31/20 Inactive hydralazine 25 mg tablet RxNorm: 609117 Take 1 Tablet(s) Oral QID 03/31/20 021 Inactive hydralazine 25 mg tablet RxNorm: 524042 Take 1 Tablet(s) Oral QID 03/31/20 021 Inactive hydralazine 10 mg tablet RxNorm: 320007 Take 1 Tablet(s) Oral QID 03/03/20 021 Inactive cephalexin 500 mg tablet RxNorm: 752109 Take 1 Tablet(s) Oral QID 02/27/20 021 Inactive cephalexin 500 mg tablet RxNorm: 368207 Take 1 Tablet(s) Oral QID 02/27/20 021 Inactive lisinopril 40 mg tablet RxNorm: 191477 Take 1 Tablet(s) Oral QD 02/11/20 023 Inactive Eliquis 5 mg tablet RxNorm: 8397894 Take 1 Tablet(s) Oral BID 01/05/20 21 022 Inactive Eliquis 5 mg tablet RxNorm: 4021085 Take 2 Tablet(s) Oral QD 01/01/20 21 021 Inactive Lyrica 50 mg capsule RxNorm: 761617 Take 1 Capsule(s) Oral QAM every morning 12/24/19 21 021 Inactive Lyrica 100 mg capsule RxNorm: 920882 Take 1 Capsule(s) Oral QHS every night at bedtime 12/24/19 21 021 Inactive clotrimazole 1 % topical cream RxNorm: 370419 Apply to right foot and toes Topical BID 12/04/19 21 023 Inactive metoprolol succinate ER 200 mg tablet,extended release 24 hr RxNorm: 424707 Take 1 Tablet(s) Oral QD 12/04/19 21 023 Inactive ciprofloxacin 500 mg tablet RxNorm: 989418 Take 1 Tablet(s) Oral QD 11/30/19 21 021 Inactive DX ofloxacin otic drops Accu-Chek Guide test strips RxNorm: USE 1 TO CHECK GLUCOSE 4 TIMES DAILY AND NEEDED 11/15/19 21 023 Inactive Blood Glucose Test strips RxNorm: Use 1 Test Strip QID at PRN 11/05/19 21 023 Inactive E11.42 lisinopril 30 mg tablet RxNorm: 695489 Take 1 Tablet(s) Oral QD 10/30/19 021 Inactive lisinopril 20 mg tablet RxNorm: 948752 Take 1 Tablet(s) Oral QD 10/23/19 21 021 Inactive lisinopril 20 mg tablet RxNorm: 051887 Take 1 Tablet(s) Oral QD 10/23/19 21 021 Inactive lisinopril 10 mg tablet RxNorm: 969927 Take 1 Tablet(s) Oral QD 10/02/19 21 021 Inactive icosapent ethyl 1 gram capsule RxNorm: 8268819 Take 2 Capsule(s) (2 gm) Oral BID with meals 09/12/19 21 022 Inactive Okay to dispense one 2gm tab if you have that available. icosapent ethyl 1 gram capsule RxNorm: 5549306 Take 2 Capsule(s) Oral BID 09/12/19 21 021 Inactive Okay to dispense one 2gm tab if you have that available. amlodipine 10 mg tablet RxNorm: 275081 Take 1 Tablet(s) Oral QD 09/04/19 21 022 Inactive Levemir FlexTouch U-100 Insulin 100 unit/mL (3 mL) subcutaneous pen RxNorm: 411773 Inject 150 Unit(s) Subcutaneous BID 09/04/19 21 022 Inactive aspirin 81 mg tablet,delayed release RxNorm: 982042 Take 1 Tablet(s) Oral QD 09/04/19 21 Inactive venlafaxine ER 150 mg tablet,extended release 24 hr RxNorm: 231268 Take 1 Tablet(s) Oral QD 09/04/19 Inactive clotrimazole-betame thasone 1 %-0.05 % topical cream RxNorm: 080084 Apply to rash on red area on left abdomen/chest Topical BID 08/10/19 21 Inactive amlodipine 5 mg tablet RxNorm: 118114 Take 1 Tablet(s) Oral QD 07/31/19 Inactive cephalexin 500 mg tablet RxNorm: 715235 Take 1 Tablet(s) Oral BID BID - Twice Daily 07/31/19 Inactive Start 08/01/20 pantoprazole 40 mg tablet,delayed release RxNorm: 135168 Take 1 Tablet(s) Oral QAM every morning 07/08/19 022 Inactive senna 8.6 mg tablet RxNorm: 885648 Take 1 Tablet(s) Oral QD 07/08/19 022 Inactive Novolog Flexpen U-100 Insulin aspart 100 unit/mL (3 mL) subcutaneous RxNorm: 1036442 Administer per sliding scale Milliliter(s) Subcutaneous TID 151-200: 10 u; 201-250: 20 u; 251-300: 30 u; 301-350: 40 u; 351-400: 50 u. 07/08/19 21 022 Inactive Novolog Flexpen U-100 Insulin aspart 100 unit/mL (3 mL) subcutaneous RxNorm: 7670048 Inject 85 Unit(s) Subcutaneous TID 07/08/19 022 Inactive pravastatin 80 mg tablet RxNorm: 598606 Take 1 Tablet(s) Oral QHS every night at bedtime 07/08/19 022 Inactive clotrimazole 1 % topical cream RxNorm: 234131 Apply to bilateral groin areas Topical BID 07/08/19 022 Inactive carbamazepine 200 mg tablet RxNorm: 094599 Take 1 Tablet(s) Oral BID 07/08/19 022 Inactive torsemide 20 mg tablet RxNorm: 060270 Take 1 Tablet(s) Oral QD 07/08/19 023 Inactive clopidogrel 75 mg tablet RxNorm: 124406 Take 1 Tablet(s) Oral QD 07/08/19 021 Inactive Blood Glucose Test strips RxNorm: Use 1 Test Strip QID at PRN 07/08/19 021 Inactive E11.42 lisinopril 5 mg tablet RxNorm: 522604 Take 1 Tablet(s) Oral QD 07/08/19 Inactive metoprolol succinate ER 200 mg tablet,extended release 24 hr RxNorm: 468246 Take 1 Tablet(s) Oral QD 07/08/19 021 Inactive Vitamin D3 25 mcg (1,000 unit) tablet RxNorm: 146495 Take 1 Tablet(s) Oral QD 07/08/19 021 Inactive isosorbide dinitrate 30 mg tablet RxNorm: 026014 Take 1 Tablet(s) Oral QD 07/08/19 021 Inactive Levemir FlexTouch U-100 Insulin 100 unit/mL (3 mL) subcutaneous pen RxNorm: 791671 Inject 140 Unit(s) Subcutaneous BID 07/08/19 021 Inactive venlafaxine 75 mg tablet RxNorm: 386875 Take 1 Tablet(s) Oral QD 07/08/19 021 Inactive acetaminophen 500 mg tablet RxNorm: 372728 Take 1 Tablet(s) Oral TID as needed for headache 06/18/19 021 Inactive acetaminophen 500 mg tablet RxNorm: 847060 Take 1 Tablet(s) Oral TID as needed for headache 06/18/19 021 Inactive Lyrica 100 mg capsule RxNorm: 842264 Take 1 Capsule(s) Oral QHS every night at bedtime 06/11/19 021 Inactive Lyrica 50 mg capsule RxNorm: 274784 Take 1 Capsule(s) Oral QAM every morning 06/10/19 21 021 Inactive hydrocortisone 2.5 % topical cream RxNorm: 212840 Apply to bilateral groin creases Topical BID 05/15/20 20 021 Inactive clotrimazole 1 % topical cream RxNorm: 723134 Apply to bilateral groin areas Topical BID 05/15/20 20 Inactive Lyrica 50 mg capsule RxNorm: 928408 Take 1 Capsule(s) Oral QAM every morning 05/14/20 20 Inactive Lyrica 100 mg capsule RxNorm: 369755 Take 1 Capsule(s) Oral QHS every night [...] Inactive Nystop 100,000 unit/gram topical powder RxNorm: 043455 Apply to abd folds, under breasts and L side of groin Topical BID x 14 days, then BID PRN 04/08/20 20 021 Inactive dx: yeast dermatitis Lyrica 100 mg capsule RxNorm: 475855 Take 1 Capsule(s) Oral QHS every night at bedtime 03/13/20 20 020 Inactive Lyrica 50 mg capsule RxNorm: 702532 Take 1 Capsule(s) Oral QAM every morning 03/13/20 20 020 Inactive ketoconazole 2 % shampoo RxNorm: 578836 Apply Topical two times a week with showers 03/11/20 20 Inactive cholecalciferol (vitamin D3) 50 mcg (2,000 unit) tablet RxNorm: 876957 Take 1 Tablet(s) Oral QD 03/11/20 Inactive Zetia 10 mg tablet RxNorm: 583989 Take 1 Tablet(s) Oral QD 03/07/20 Inactive Zetia 10 mg tablet RxNorm: 352821 Take 1 Tablet(s) Oral QD 03/07/20 Inactive Lyrica 50 mg capsule RxNorm: 774486 Take 1 Capsule(s) Oral QAM every morning 02/15/20 Inactive Lyrica 100 mg capsule RxNorm: 020238 Take 1 Capsule(s) Oral QHS every night at bedtime 02/15/20 Inactive Lyrica 100 mg capsule RxNorm: 778651 Take 1 Capsule(s) Oral QHS every night at bedtime 02/15/20 Inactive Lyrica 50 mg capsule RxNorm: 197106 Take 1 Capsule(s) Oral QAM every morning [...] Date Referral: [facility] WPtel: [address], [address] [id number] [place] Referral Records Received 09/21/2022 Referral: [facility] WPtel: [address] [id number] [place] Referral Completed 05/28/2021 Referral: General Cardiology Referral Complet ed 01/03/2021 Referral: General Psychologist Referral Close d Instructions Comment Date Leonid is a?? Male being seen living at [facility]. Initial BPS visit 01/2020. PMHx including DMII, CAD w/ 5 stents, Depression, Seizure Disorder and CKD stage 3. He moved into [facility] in 12/2019 but after a hospitalization 05/2021 he moved to the [facility] to have closer nursing attention.??Sister Jyotsna involved in his care cell# [phone]??Guardian: Don (tapan met in person 09/01/21), now has Lexii (same group as don)Lab Schedule: * 10/06/2022
--- OUTSIDE RECORDS SUMMARY | 2022-11-09 23:18 | XMS_ITS | CCD ---
Author Name Unknown Organization Unknown Care Team Providers Care Hose Inspector And Patcher Name Role Phone Tapan Shirley PA-C Primary Care Provider Unavailabl e Tapan Shirley PA-C Chronic Care Management Unavaila ble Summary Purpose DataExchange Insurance Providers Payer name Policy type / Coverage type Covered republican ID Effective Begin Date Effective End Date [place] Medicare Part B [id number] Unknown Unknown [place] Medicare Part B [id number] Unknown Unknown Family history Runs in the family Diagnosis Age At Onset No Known Diseases N/A Social History Social History Element Codes Description Effec tive Dates Living arrangements Unknown 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 09/03/[address]: 1091140 Non-Smoker / No History of Smoking 09/02/[address]: 691721897 No Alcohol Consum ption 09/02/2020 Allergies, Adverse Reactions, Alerts Substance Reaction Codes Entered Date Inactivated Date Status LISINOPRIL RxNorm: 30163 02/12/2020 No Inactive Da te Active Metformin [...] ICD-10: M10 .30 ICD-9: 274.10 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 ICD-10: Z79.4 09/03 [...] Instructions aspirin 81 mg tablet,delayed release RxNorm: 475414 Take 1 Tablet(s) Oral QD 03/31/20 022 Inactive Vitamin D2 1,250 mcg (50,000 unit) capsule RxNorm: 9686100 Take 1 Capsule(s) Oral QW once a week x 12 weeks 03/31/20 022 Inactive Vitamin D2 1,250 mcg (50,000 unit) capsule RxNorm: 0426917 Take 1 Capsule(s) Oral QW once a week 03/31/20 021 Inactive Zetia 10 mg tablet RxNorm: 855127 Take 1 Tablet(s) Oral QD 03/31/20 022 Inactive Zetia 10 mg tablet RxNorm: 936130 Take 1 Tablet(s) Oral QD 03/31/20 021 Inactive hydralazine 25 mg tablet RxNorm: 848028 Take 1 Tablet(s) Oral QID 11/15/ 021 Inactive hydralazine 25 mg tablet RxNorm: 418635 Take 1 Tablet(s) Oral QID 03/31/20 021 Inactive hydralazine 10 mg tablet RxNorm: 587565 Take 1 Tablet(s) Oral QID 03/03/20 021 Inactive cephalexin 500 mg tablet RxNorm: 124250 Take 1 Tablet(s) Oral QID 02/27/20 021 Inactive cephalexin 500 mg tablet RxNorm: 971908 Take 1 Tablet(s) Oral QID 02/27/20 021 Inactive lisinopril 40 mg tablet RxNorm: 632027 Take 1 Tablet(s) Oral QD 02/11/20 023 Inactive Eliquis 5 mg tablet RxNorm: 2688571 Take 1 Tablet(s) Oral BID 01/05/20 022 Inactive Eliquis 5 mg tablet RxNorm: 1276068 Take 2 Tablet(s) Oral QD 01/01/20 21 021 Inactive Lyrica 50 mg capsule RxNorm: 351568 Take 1 Capsule(s) Oral QAM every morning 12/24/19 021 Inactive Lyrica 100 mg capsule RxNorm: 101330 Take 1 Capsule(s) Oral QHS every night at bedtime 12/24/19 021 Inactive clotrimazole 1 % topical cream RxNorm: 417393 Apply to right foot and toes Topical BID 12/04/19 21 023 Inactive metoprolol succinate ER 200 mg tablet,extended release 24 hr RxNorm: 303859 Take 1 Tablet(s) Oral QD 12/04/19 023 Inactive ciprofloxacin 500 mg tablet RxNorm: 490294 Take 1 Tablet(s) Oral QD 11/30/19 021 Inactive DX ofloxacin otic drops Accu-Chek Guide test strips RxNorm: USE 1 TO CHECK GLUCOSE 4 TIMES DAILY AND NEEDED 11/15/19 21 023 Inactive Blood Glucose Test strips RxNorm: Use 1 Test Strip QID at PRN 11/05/19 023 Inactive E11.42 lisinopril 30 mg tablet RxNorm: 644572 Take 1 Tablet(s) Oral QD 10/30/19 021 Inactive lisinopril 20 mg tablet RxNorm: 148189 Take 1 Tablet(s) Oral QD 10/23/19 21 021 Inactive lisinopril 20 mg tablet RxNorm: 008190 Take 1 Tablet(s) Oral QD 10/23/19 21 021 Inactive lisinopril 10 mg tablet RxNorm: 789251 Take 1 Tablet(s) Oral QD 10/02/19 021 Inactive icosapent ethyl 1 gram capsule RxNorm: 4213673 Take 2 Capsule(s) (2 gm) Oral BID with meals 09/12/19 022 Inactive Okay to dispense one 2gm tab if you have that available. icosapent ethyl 1 gram capsule RxNorm: 1614769 Take 2 Capsule(s) Oral BID 09/12/19 021 Inactive Okay to dispense one 2gm tab if you have that available. amlodipine 10 mg tablet RxNorm: 886305 Take 1 Tablet(s) Oral QD 09/04/19 022 Inactive Levemir FlexTouch U-100 Insulin 100 unit/mL (3 mL) subcutaneous pen RxNorm: 060903 Inject 150 Unit(s) Subcutaneous BID 09/04/19 21 022 Inactive venlafaxine ER 150 mg tablet,extended release 24 hr RxNorm: 900783 Take 1 Tablet(s) Oral QD 09/04/19 21 021 Inactive aspirin 81 mg tablet,delayed release RxNorm: 285875 Take 1 Tablet(s) Oral QD 09/04/19 21 021 Inactive clotrimazole-betame thasone 1 %-0.05 % topical cream RxNorm: 634575 Apply to rash on red area on left abdomen/chest Topical BID 08/10/19 21 021 Inactive amlodipine 5 mg tablet RxNorm: 787674 Take 1 Tablet(s) Oral QD 07/31/19 21 021 Inactive cephalexin 500 mg tablet RxNorm: 577910 Take 1 Tablet(s) Oral BID BID - Twice Daily 07/31/19 21 021 Inactive Start 08/01/20 pantoprazole 40 mg tablet,delayed release RxNorm: 793303 Take 1 Tablet(s) Oral QAM every morning 07/08/19 022 Inactive senna 8.6 mg tablet RxNorm: 635746 Take 1 Tablet(s) Oral QD 07/08/19 022 Inactive Novolog Flexpen U-100 Insulin aspart 100 unit/mL (3 mL) subcutaneous RxNorm: 9617298 Administer per sliding scale Milliliter(s) Subcutaneous TID 151-200: 10 u; 201-250: 20 u; 251-300: 30 u; 301-350: 40 u; 351-400: 50 u. 07/08/19 022 Inactive Novolog Flexpen U-100 Insulin aspart 100 unit/mL (3 mL) subcutaneous RxNorm: 6482035 Inject 85 Unit(s) Subcutaneous TID 07/08/19 022 Inactive pravastatin 80 mg tablet RxNorm: 744393 Take 1 Tablet(s) Oral QHS every night at bedtime 07/08/19 022 Inactive clotrimazole 1 % topical cream RxNorm: 378934 Apply to bilateral groin areas Topical BID 07/08/19 21 022 Inactive carbamazepine 200 mg tablet RxNorm: 363571 Take 1 Tablet(s) Oral BID 07/08/19 022 Inactive torsemide 20 mg tablet RxNorm: 985625 Take 1 Tablet(s) Oral QD 07/08/19 21 023 Inactive clopidogrel 75 mg tablet RxNorm: 355767 Take 1 Tablet(s) Oral QD 07/08/19 021 Inactive Blood Glucose Test strips RxNorm: Use 1 Test Strip QID at PRN 07/08/19 21 021 Inactive E11.42 lisinopril 5 mg tablet RxNorm: 651881 Take 1 Tablet(s) Oral QD 07/08/19 021 Inactive metoprolol succinate ER 200 mg tablet,extended release 24 hr RxNorm: 724735 Take 1 Tablet(s) Oral QD 07/08/19 21 021 Inactive Vitamin D3 25 mcg (1,000 unit) tablet RxNorm: 366043 Take 1 Tablet(s) Oral QD 07/08/19 Inactive isosorbide dinitrate 30 mg tablet RxNorm: 299905 Take 1 Tablet(s) Oral QD 07/08/19 Inactive Levemir FlexTouch U-100 Insulin 100 unit/mL (3 mL) subcutaneous pen RxNorm: 831568 Inject 140 Unit(s) Subcutaneous BID 07/08/19 021 Inactive venlafaxine 75 mg tablet RxNorm: 639365 Take 1 Tablet(s) Oral QD 07/08/19 Inactive acetaminophen 500 mg tablet RxNorm: 680628 Take 1 Tablet(s) Oral TID as needed for headache 06/18/19 Inactive acetaminophen 500 mg tablet RxNorm: 747216 Take 1 Tablet(s) Oral TID as needed for headache 06/18/19 021 Inactive Lyrica 100 mg capsule RxNorm: 403669 Take 1 Capsule(s) Oral QHS every night at bedtime 06/11/19 021 Inactive Lyrica 50 mg capsule RxNorm: 335061 Take 1 Capsule(s) Oral QAM every morning 06/10/19 21 021 Inactive hydrocortisone 2.5 % topical cream RxNorm: 237429 Apply to bilateral groin creases Topical BID 05/15/20 20 021 Inactive clotrimazole 1 % topical cream RxNorm: 555514 Apply to bilateral groin areas Topical BID 05/15/20 20 021 Inactive Lyrica 50 mg capsule RxNorm: 564462 Take 1 Capsule(s) Oral QAM every morning 05/14/20 20 Inactive Lyrica 100 mg capsule RxNorm: 416495 Take 1 Capsule(s) Oral QHS every night [...] Inactive Nystop 100,000 unit/gram topical powder RxNorm: 582175 Apply to abd folds, under breasts and L side of groin Topical BID x 14 days, then BID PRN 04/08/20 20 021 Inactive dx: yeast dermatitis Lyrica 100 mg capsule RxNorm: 722303 Take 1 Capsule(s) Oral QHS every night at bedtime 03/13/20 20 Inactive Lyrica 50 mg capsule RxNorm: 023317 Take 1 Capsule(s) Oral QAM every morning 03/13/20 20 Inactive ketoconazole 2 % shampoo RxNorm: 044983 Apply Topical two times a week with showers 03/11/20 20 Inactive cholecalciferol (vitamin D3) 50 mcg (2,000 unit) tablet RxNorm: 274825 Take 1 Tablet(s) Oral QD 03/11/20 20 021 Inactive Zetia 10 mg tablet RxNorm: 542355 Take 1 Tablet(s) Oral QD 03/07/20 20 021 Inactive Zetia 10 mg tablet RxNorm: 788066 Take 1 Tablet(s) Oral QD 03/07/20 20 020 Inactive Lyrica 50 mg capsule RxNorm: 471038 Take 1 Capsule(s) Oral QAM every morning 02/15/20 20 Inactive Lyrica 100 mg capsule RxNorm: 041354 Take 1 Capsule(s) Oral QHS every night at bedtime 02/15/20 20 Inactive Lyrica 100 mg capsule RxNorm: 091559 Take 1 Capsule(s) Oral QHS every night at bedtime 02/15/20 20 Inactive Lyrica 50 mg capsule RxNorm: 015535 Take 1 Capsule(s) Oral QAM every morning [...] Status Date Referral: [facility] WPtel: [address], [address] [id number] Referral Records Received 09/21/2022 Referral: [facility] WPtel: [address] [id number] [place] Referral Completed 05/28/2021 Referral: General Cardiology Referral Complet ed 01/03/2021 Referral: General Psychologist Referral Close d Instructions Comment Date Leonid is a?? Male being seen living at [facility]. Initial BPS visit 01/2020. PMHx including DMII, CAD w/ 5 stents, Depression, Seizure Disorder and CKD stage 3. He moved into [facility] in 12/2019 but after a hospitalization 05/2021 he moved to the [facility] to have closer nursing attention.??Sister Jyotsna involved in his care cell# [phone]??Guardian: Don (tapan met in person 09/01/21), now has Lexii (same group as don)Lab Schedule: * 10/06/2022
--- OUTSIDE RECORDS SUMMARY | 2022-11-09 23:19 | XMS_ITS | CCD ---
Author Name Unknown Organization Unknown Care Team Providers Care Wash House Supervisor Name Role Phone Tapan Shirley PA-C Primary Care Provider Unavailabl e Tapan Shirley PA-C Chronic Care Management Unavaila ble Summary Purpose DataExchange Insurance Providers Payer name Policy type / Coverage type Covered libertarian ID Effective Begin Date Effective End Date Medicare [place] Medicare Part B [id number] Unknown Unknown Medicaid [place] Medicare Part B [id number] Unknown Unknown Family history Runs in the family Diagnosis Age At Onset No Known Diseases N/A Social History Social History Element Codes Description Effec tive Dates Living arrangements Unknown Detention 09/03/[address]: 5460884 Non-Smoker / No History of Smoking 09/02/[address]: 215312622 No Alcohol Consum ption 09/02/2020 Allergies, Adverse Reactions, Alerts Substance Reaction Codes Entered Date Inactivated Date Status LISINOPRIL RxNorm: 88270 02/12/2020 No Inactive Da te Active Metformin [...] 02/10/2021 Active Coronary artery disease invo lving [place] coronary artery of [place] heart, angina presence unspecified ICD-10: I25.10 ICD-9: [...] M10 .30 ICD-9: 274.10 09/03/2020 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 [...] test strip hydralazine 50 mg tablet RxNorm: 401459 Take 1 Tablet(s) Oral QID 05/05/20 21 Inactive venlafaxine ER 225 mg tablet,extended release 24 hr RxNorm: 960983 Take 1 Tablet(s) Oral QD 05/05/20 Inactive isosorbide mononitrate ER 30 mg tablet,extended release 24 hr RxNorm: 190688 Take 1 Tablet(s) Oral QD 05/05/20 No Stop Date Active venlafaxine ER 225 mg tablet,extended release 24 hr RxNorm: 303125 Take 1 Tablet(s) Oral QD 05/05/20 Inactive hydralazine 50 mg tablet RxNorm: 825723 Take 1 Tablet(s) Oral QID 05/05/20 21 Inactive aspirin 81 mg tablet,delayed release RxNorm: 635756 Take 1 Tablet(s) Oral QD 03/31/20 022 Inactive Vitamin D2 1,250 mcg (50,000 unit) capsule RxNorm: 4705131 Take 1 Capsule(s) Oral QW once a week x 12 weeks 03/31/20 022 Inactive Zetia 10 mg tablet RxNorm: 568232 Take 1 Tablet(s) Oral QD 03/31/20 21 Inactive Vitamin D2 1,250 mcg (50,000 unit) capsule RxNorm: 3209365 Take 1 Capsule(s) Oral QW once a week 03/31/20 021 Inactive Zetia 10 mg tablet RxNorm: 851707 Take 1 Tablet(s) Oral QD 03/31/20 021 Inactive hydralazine 25 mg tablet RxNorm: 050720 Take 1 Tablet(s) Oral QID 03/31/20 021 Inactive hydralazine 25 mg tablet RxNorm: 279554 Take 1 Tablet(s) Oral QID 03/31/20 021 Inactive hydralazine 10 mg tablet RxNorm: 601944 Take 1 Tablet(s) Oral QID 03/03/20 021 Inactive cephalexin 500 mg tablet RxNorm: 445291 Take 1 Tablet(s) Oral QID 02/27/20 021 Inactive cephalexin 500 mg tablet RxNorm: 376100 Take 1 Tablet(s) Oral QID 02/27/20 021 Inactive lisinopril 40 mg tablet RxNorm: 179373 Take 1 Tablet(s) Oral QD 02/11/20 023 Inactive Eliquis 5 mg tablet RxNorm: 5290999 Take 1 Tablet(s) Oral BID 01/05/20 022 Inactive Eliquis 5 mg tablet RxNorm: 2355195 Take 2 Tablet(s) Oral QD 01/01/20 21 021 Inactive Lyrica 50 mg capsule RxNorm: 251738 Take 1 Capsule(s) Oral QAM every morning 12/24/19 021 Inactive Lyrica 100 mg capsule RxNorm: 053215 Take 1 Capsule(s) Oral QHS every night at bedtime 12/24/19 21 021 Inactive clotrimazole 1 % topical cream RxNorm: 358964 Apply to right foot and toes Topical BID 12/04/19 21 023 Inactive metoprolol succinate ER 200 mg tablet,extended release 24 hr RxNorm: 730731 Take 1 Tablet(s) Oral QD 12/04/19 21 023 Inactive ciprofloxacin 500 mg tablet RxNorm: 029818 Take 1 Tablet(s) Oral QD 11/30/19 21 021 Inactive DX ofloxacin otic drops Accu-Chek Guide test strips RxNorm: USE 1 TO CHECK GLUCOSE 4 TIMES DAILY AND NEEDED 11/15/19 21 023 Inactive Blood Glucose Test strips RxNorm: Use 1 Test Strip QID at PRN 11/05/19 21 023 Inactive E11.42 lisinopril 30 mg tablet RxNorm: 083350 Take 1 Tablet(s) Oral QD 10/30/19 021 Inactive lisinopril 20 mg tablet RxNorm: 896685 Take 1 Tablet(s) Oral QD 10/23/19 021 Inactive lisinopril 20 mg tablet RxNorm: 352708 Take 1 Tablet(s) Oral QD 10/23/19 021 Inactive lisinopril 10 mg tablet RxNorm: 452958 Take 1 Tablet(s) Oral QD 10/02/19 021 Inactive icosapent ethyl 1 gram capsule RxNorm: 8395665 Take 2 Capsule(s) (2 gm) Oral BID with meals 09/12/19 022 Inactive Okay to dispense one 2gm tab if you have that available. icosapent ethyl 1 gram capsule RxNorm: 1279979 Take 2 Capsule(s) Oral BID 09/12/19 021 Inactive Okay to dispense one 2gm tab if you have that available. amlodipine 10 mg tablet RxNorm: 049982 Take 1 Tablet(s) Oral QD 09/04/19 022 Inactive Levemir FlexTouch U-100 Insulin 100 unit/mL (3 mL) subcutaneous pen RxNorm: 143475 Inject 150 Unit(s) Subcutaneous BID 09/04/19 21 022 Inactive aspirin 81 mg tablet,delayed release RxNorm: 307659 Take 1 Tablet(s) Oral QD 09/04/19 21 021 Inactive venlafaxine ER 150 mg tablet,extended release 24 hr RxNorm: 367402 Take 1 Tablet(s) Oral QD 09/04/19 21 021 Inactive clotrimazole-betame thasone 1 %-0.05 % topical cream RxNorm: 004025 Apply to rash on red area on left abdomen/chest Topical BID 08/10/19 21 Inactive amlodipine 5 mg tablet RxNorm: 798018 Take 1 Tablet(s) Oral QD 07/31/19 21 Inactive cephalexin 500 mg tablet RxNorm: 477044 Take 1 Tablet(s) Oral BID BID - Twice Daily 07/31/19 21 021 Inactive Start 08/01/20 pantoprazole 40 mg tablet,delayed release RxNorm: 295881 Take 1 Tablet(s) Oral QAM every morning 07/08/19 022 Inactive senna 8.6 mg tablet RxNorm: 187058 Take 1 Tablet(s) Oral QD 07/08/19 022 Inactive Novolog Flexpen U-100 Insulin aspart 100 unit/mL (3 mL) subcutaneous RxNorm: 8291157 Administer per sliding scale Milliliter(s) Subcutaneous TID 151-200: 10 u; 201-250: 20 u; 251-300: 30 u; 301-350: 40 u; 351-400: 50 u. 07/08/19 21 022 Inactive Novolog Flexpen U-100 Insulin aspart 100 unit/mL (3 mL) subcutaneous RxNorm: 2954745 Inject 85 Unit(s) Subcutaneous TID 07/08/19 022 Inactive pravastatin 80 mg tablet RxNorm: 345762 Take 1 Tablet(s) Oral QHS every night at bedtime 07/08/19 022 Inactive clotrimazole 1 % topical cream RxNorm: 813207 Apply to bilateral groin areas Topical BID 07/08/19 21 022 Inactive carbamazepine 200 mg tablet RxNorm: 074571 Take 1 Tablet(s) Oral BID 07/08/19 022 Inactive torsemide 20 mg tablet RxNorm: 361498 Take 1 Tablet(s) Oral QD 07/08/19 21 023 Inactive clopidogrel 75 mg tablet RxNorm: 733662 Take 1 Tablet(s) Oral QD 07/08/19 021 Inactive Blood Glucose Test strips RxNorm: Use 1 Test Strip QID at PRN 07/08/19 21 02/22/2 021 Inactive E11.42 lisinopril 5 mg tablet RxNorm: 125426 Take 1 Tablet(s) Oral QD 07/08/19 Inactive metoprolol succinate ER 200 mg tablet,extended release 24 hr RxNorm: 433899 Take 1 Tablet(s) Oral QD 07/08/19 021 Inactive Vitamin D3 25 mcg (1,000 unit) tablet RxNorm: 524015 Take 1 Tablet(s) Oral QD 07/08/19 021 Inactive isosorbide dinitrate 30 mg tablet RxNorm: 942638 Take 1 Tablet(s) Oral QD 07/08/19 Inactive Levemir FlexTouch U-100 Insulin 100 unit/mL (3 mL) subcutaneous pen RxNorm: 524888 Inject 140 Unit(s) Subcutaneous BID 07/08/19 Inactive venlafaxine 75 mg tablet RxNorm: 689881 Take 1 Tablet(s) Oral QD 07/08/19 Inactive acetaminophen 500 mg tablet RxNorm: 741300 Take 1 Tablet(s) Oral TID as needed for headache 06/18/19 Inactive acetaminophen 500 mg tablet RxNorm: 530887 Take 1 Tablet(s) Oral TID as needed for headache 06/18/19 021 Inactive Lyrica 100 mg capsule RxNorm: 636657 Take 1 Capsule(s) Oral QHS every night at bedtime 06/11/19 021 Inactive Lyrica 50 mg capsule RxNorm: 064908 Take 1 Capsule(s) Oral QAM every morning 06/10/19 021 Inactive hydrocortisone 2.5 % topical cream RxNorm: 422122 Apply to bilateral groin creases Topical BID 05/15/20 021 Inactive clotrimazole 1 % topical cream RxNorm: 080867 Apply to bilateral groin areas Topical BID 05/15/20 20 021 Inactive Lyrica 50 mg capsule RxNorm: 602043 Take 1 Capsule(s) Oral QAM every morning 05/14/20 20 Inactive Lyrica 100 mg capsule RxNorm: 023497 Take 1 Capsule(s) Oral QHS every night [...] Inactive Nystop 100,000 unit/gram topical powder RxNorm: 427511 Apply to abd folds, under breasts and L side of groin Topical BID x 14 days, then BID PRN 04/08/20 20 021 Inactive dx: yeast dermatitis Lyrica 100 mg capsule RxNorm: 077737 Take 1 Capsule(s) Oral QHS every night at bedtime 03/13/20 20 Inactive Lyrica 50 mg capsule RxNorm: 113816 Take 1 Capsule(s) Oral QAM every morning 03/13/20 20 Inactive ketoconazole 2 % shampoo RxNorm: 490390 Apply Topical two times a week with showers 03/11/20 20 Inactive cholecalciferol (vitamin D3) 50 mcg (2,000 unit) tablet RxNorm: 932532 Take 1 Tablet(s) Oral QD 03/11/20 20 Inactive Zetia 10 mg tablet RxNorm: 149088 Take 1 Tablet(s) Oral QD 03/07/20 20 021 Inactive Zetia 10 mg tablet RxNorm: 852502 Take 1 Tablet(s) Oral QD 03/07/20 20 020 Inactive Lyrica 50 mg capsule RxNorm: 511284 Take 1 Capsule(s) Oral QAM every morning 02/15/20 20 Inactive Lyrica 100 mg capsule RxNorm: 677800 Take 1 Capsule(s) Oral QHS every night at bedtime 02/15/20 20 Inactive Lyrica 100 mg capsule RxNorm: 599621 Take 1 Capsule(s) Oral QHS every night at bedtime 02/15/20 20 Inactive Lyrica 50 mg capsule RxNorm: 066579 Take 1 Capsule(s) Oral QAM every morning [...] Status Date Referral: [facility] WPtel: [address], [address] [id number] [place] Referral Records Received 09/21/2022 Referral: [facility] WPtel: [address] [id number] [place] Referral Completed 05/28/2021 Referral: General Cardiology Referral Complet ed 01/03/2021 Referral: General Psychologist Referral Close d Instructions Comment Date Leonid is a?? Male being seen living at [facility]. Initial BPS visit 01/2020. PMHx including DMII, CAD w/ 5 stents, Depression, Seizure Disorder and CKD stage 3. He moved into [facility] in 12/2019 but after a hospitalization 05/2021 he moved to the [facility] to have closer nursing attention.??Sister Jyotsna involved in his care cell# [phone]??Guardian: Don (tapan met in person 09/01/21), now has Lexii (same group as don)Lab Schedule: * 10/06/2022
--- OUTSIDE RECORDS SUMMARY | 2022-11-09 23:19 | XMS_ITS | CCD ---
Author Name Tapan Shirley PA-C Address [address] [place] [address] Phone Organization [facility] Phone Care Team Providers Care Tong Hooker Name Role Phone Tapan Shirley PA-C Primary Care Provider Unavailabl e Tapan Shirley PA-C Chronic Care Management Unavaila ble Summary Purpose DataExchange Insurance Providers Payer name Policy type / Coverage type Covered alliance party ID Effective Begin Date Effective End Date Medicare [place] Medicare Part B [id number] Unknown Unknown Medicaid [place] Medicare Part B [id number] Unknown Unknown Family history Runs in the family Diagnosis Age At Onset No Known Diseases N/A Social History Social History Element Codes Description Effec tive Dates Living arrangements Unknown Intermediate 09/03/[address]: 8198533 Non-Smoker / No History of Smoking 09/02/[address]: 157602856 No Alcohol Consum ption 09/02/2020 Allergies, Adverse Reactions, Alerts Substance Reaction Codes Entered Date Inactivated Date Status LISINOPRIL RxNorm: 91783 02/12/2020 No Inactive Da te Active Metformin HCl Unknown 02/12/2020 No Inactive Cristiano e Active Problems Condition Codes Effective Dates Condition St atus Candidiasis, intertrigo ICD-10: B37.2 ICD-9: 112.3 06/10/2021 Active DVT (deep venous thrombosis) ICD-10: I82 .409 ICD-9: 453.40 06/10/2021 Active History of anemia due to CKD ICD-10: N18 .9 ICD-9: 585.9 06/10/2021 Active Hyperlipidemia associated wi th type 2 diabetes mellitus ICD-10: E11.69 ICD-9: 250.80 06/10/2021 Active Hypertension associated with diabetes ICD-10: E11.59 ICD-9: 250.80 06/10/2021 Active Stage 2 chronic kidney disea se due to type 2 diabetes mellitus ICD-10: E11.22 ICD-9: 250.40 06/10/2021 Active Stage 2 chronic kidney disease ICD-10: N 18.2 ICD-9: 585.2 06/10/2021 Active Type 2 diabetes mellitus wit h diabetic polyneuropathy, with long-term current use of insulin ICD-10: E11.42 ICD-9: 250.60 06/10/2021 Active Depression ICD-10: F32.9 ICD-9: 311 05/05/2021 Active Learning disability ICD-10: F81.9 ICD-9: 315.2 05/05/2021 Active Seizure disorder ICD-10: G40.909 ICD-9: 345.90 05/05/2021 Active Skin tag ICD-10: L91.8 ICD-9: 701.9 03/31/2021 Active Vitamin D deficiency ICD-10: E55.9 ICD-9: 268.9 03/31/2021 Active Cellulitis ICD-10: L03.90 ICD-9: 682.9 03/03/2021 Active Callus of heel ICD-10: L84 ICD-9: 700 02/10/2021 Active Coronary artery disease invo lving [id number] [...] ICD-10: M10 .30 ICD-9: 274.10 09/03/2020 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: [...] test strip hydralazine 50 mg tablet RxNorm: 639194 Take 1 Tablet(s) Oral QID 05/05/20 21 022 Inactive venlafaxine ER 225 mg tablet,extended release 24 hr RxNorm: 488736 Take 1 Tablet(s) Oral QD 05/05/20 022 Inactive isosorbide mononitrate ER 30 mg tablet,extended release 24 hr RxNorm: 486480 Take 1 Tablet(s) Oral QD 05/05/20 No Stop Date Active venlafaxine ER 225 mg tablet,extended release 24 hr RxNorm: 507641 Take 1 Tablet(s) Oral QD 05/05/20 21 021 Inactive hydralazine 50 mg tablet RxNorm: 348985 Take 1 Tablet(s) Oral QID 05/05/20 21 Inactive aspirin 81 mg tablet,delayed release RxNorm: 546153 Take 1 Tablet(s) Oral QD 03/31/20 022 Inactive Vitamin D2 1,250 mcg (50,000 unit) capsule RxNorm: 1307364 Take 1 Capsule(s) Oral QW once a week x 12 weeks 03/31/20 022 Inactive Zetia 10 mg tablet RxNorm: 485666 Take 1 Tablet(s) Oral QD 03/31/20 21 022 Inactive Vitamin D2 1,250 mcg (50,000 unit) capsule RxNorm: 4031256 Take 1 Capsule(s) Oral QW once a week 03/31/20 Inactive Zetia 10 mg tablet RxNorm: 905926 Take 1 Tablet(s) Oral QD 03/31/20 Inactive hydralazine 25 mg tablet RxNorm: 094532 Take 1 Tablet(s) Oral QID 03/31/20 021 Inactive hydralazine 25 mg tablet RxNorm: 486697 Take 1 Tablet(s) Oral QID 03/31/20 021 Inactive hydralazine 10 mg tablet RxNorm: 670592 Take 1 Tablet(s) Oral QID 03/03/20 021 Inactive cephalexin 500 mg tablet RxNorm: 964891 Take 1 Tablet(s) Oral QID 02/27/20 021 Inactive cephalexin 500 mg tablet RxNorm: 691245 Take 1 Tablet(s) Oral QID 02/27/20 021 Inactive lisinopril 40 mg tablet RxNorm: 583891 Take 1 Tablet(s) Oral QD 02/11/20 023 Inactive Eliquis 5 mg tablet RxNorm: 5807973 Take 1 Tablet(s) Oral BID 01/05/20 022 Inactive Eliquis 5 mg tablet RxNorm: 5845830 Take 2 Tablet(s) Oral QD 01/01/20 021 Inactive Lyrica 50 mg capsule RxNorm: 809547 Take 1 Capsule(s) Oral QAM every morning 12/24/19 021 Inactive Lyrica 100 mg capsule RxNorm: 446716 Take 1 Capsule(s) Oral QHS every night at bedtime 12/24/19 21 021 Inactive clotrimazole 1 % topical cream RxNorm: 792221 Apply to right foot and toes Topical BID 12/04/19 21 023 Inactive metoprolol succinate ER 200 mg tablet,extended release 24 hr RxNorm: 080425 Take 1 Tablet(s) Oral QD 07/20/ 023 Inactive ciprofloxacin 500 mg tablet RxNorm: 022804 Take 1 Tablet(s) Oral QD 11/30/19 021 Inactive DX ofloxacin otic drops Accu-Chek Guide test strips RxNorm: USE 1 TO CHECK GLUCOSE 4 TIMES DAILY AND NEEDED 11/15/19 21 023 Inactive Blood Glucose Test strips RxNorm: Use 1 Test Strip QID at PRN 11/05/19 21 023 Inactive E11.42 lisinopril 30 mg tablet RxNorm: 401847 Take 1 Tablet(s) Oral QD 10/30/19 021 Inactive lisinopril 20 mg tablet RxNorm: 651195 Take 1 Tablet(s) Oral QD 10/23/19 021 Inactive lisinopril 20 mg tablet RxNorm: 865368 Take 1 Tablet(s) Oral QD 10/23/19 021 Inactive lisinopril 10 mg tablet RxNorm: 651710 Take 1 Tablet(s) Oral QD 10/02/19 021 Inactive icosapent ethyl 1 gram capsule RxNorm: 3355405 Take 2 Capsule(s) (2 gm) Oral BID with meals 09/12/19 022 Inactive Okay to dispense one 2gm tab if you have that available. icosapent ethyl 1 gram capsule RxNorm: 6998295 Take 2 Capsule(s) Oral BID 09/12/19 021 Inactive Okay to dispense one 2gm tab if you have that available. amlodipine 10 mg tablet RxNorm: 971015 Take 1 Tablet(s) Oral QD 09/04/19 022 Inactive Levemir FlexTouch U-100 Insulin 100 unit/mL (3 mL) subcutaneous pen RxNorm: 566354 Inject 150 Unit(s) Subcutaneous BID 09/04/19 022 Inactive aspirin 81 mg tablet,delayed release RxNorm: 659757 Take 1 Tablet(s) Oral QD 09/04/19 21 021 Inactive venlafaxine ER 150 mg tablet,extended release 24 hr RxNorm: 514703 Take 1 Tablet(s) Oral QD 09/04/19 Inactive clotrimazole-betame thasone 1 %-0.05 % topical cream RxNorm: 288164 Apply to rash on red area on left abdomen/chest Topical BID 08/10/19 21 Inactive amlodipine 5 mg tablet RxNorm: 866536 Take 1 Tablet(s) Oral QD 07/31/19 Inactive cephalexin 500 mg tablet RxNorm: 103271 Take 1 Tablet(s) Oral BID BID - Twice Daily 07/31/19 21 021 Inactive Start 08/01/20 pantoprazole 40 mg tablet,delayed release RxNorm: 889473 Take 1 Tablet(s) Oral QAM every morning 07/08/19 Inactive senna 8.6 mg tablet RxNorm: 992204 Take 1 Tablet(s) Oral QD 07/08/19 022 Inactive Novolog Flexpen U-100 Insulin aspart 100 unit/mL (3 mL) subcutaneous RxNorm: 0851184 Administer per sliding scale Milliliter(s) Subcutaneous TID 151-200: 10 u; 201-250: 20 u; 251-300: 30 u; 301-350: 40 u; 351-400: 50 u. 07/08/19 Inactive Novolog Flexpen U-100 Insulin aspart 100 unit/mL (3 mL) subcutaneous RxNorm: 7143659 Inject 85 Unit(s) Subcutaneous TID 07/08/19 022 Inactive pravastatin 80 mg tablet RxNorm: 251192 Take 1 Tablet(s) Oral QHS every night at bedtime 07/08/19 022 Inactive clotrimazole 1 % topical cream RxNorm: 554050 Apply to bilateral groin areas Topical BID 07/08/19 Inactive carbamazepine 200 mg tablet RxNorm: 799511 Take 1 Tablet(s) Oral BID 07/08/19 21 022 Inactive torsemide 20 mg tablet RxNorm: 056388 Take 1 Tablet(s) Oral QD 07/08/19 023 Inactive clopidogrel 75 mg tablet RxNorm: 842331 Take 1 Tablet(s) Oral QD 07/08/19 021 Inactive Blood Glucose Test strips RxNorm: Use 1 Test Strip QID at PRN 07/08/19 21 Inactive E11.42 lisinopril 5 mg tablet RxNorm: 393359 Take 1 Tablet(s) Oral QD 07/08/19 021 Inactive metoprolol succinate ER 200 mg tablet,extended release 24 hr RxNorm: 150034 Take 1 Tablet(s) Oral QD 07/08/19 21 Inactive Vitamin D3 25 mcg (1,000 unit) tablet RxNorm: 265402 Take 1 Tablet(s) Oral QD 07/08/19 Inactive isosorbide dinitrate 30 mg tablet RxNorm: 764063 Take 1 Tablet(s) Oral QD 07/08/19 Inactive Levemir FlexTouch U-100 Insulin 100 unit/mL (3 mL) subcutaneous pen RxNorm: 463496 Inject 140 Unit(s) Subcutaneous BID 07/08/19 Inactive venlafaxine 75 mg tablet RxNorm: 180660 Take 1 Tablet(s) Oral QD 07/08/19 Inactive acetaminophen 500 mg tablet RxNorm: 714842 Take 1 Tablet(s) Oral TID as needed for headache 06/18/19 Inactive acetaminophen 500 mg tablet RxNorm: 797145 Take 1 Tablet(s) Oral TID as needed for headache 06/18/19 021 Inactive Lyrica 100 mg capsule RxNorm: 142112 Take 1 Capsule(s) Oral QHS every night at bedtime 06/11/19 021 Inactive Lyrica 50 mg capsule RxNorm: 830072 Take 1 Capsule(s) Oral QAM every morning 06/10/19 Inactive hydrocortisone 2.5 % topical cream RxNorm: 124011 Apply to bilateral groin creases Topical BID 05/15/20 20 021 Inactive clotrimazole 1 % topical cream RxNorm: 863854 Apply to bilateral groin areas Topical BID 05/15/20 20 01/12/2 021 Inactive Lyrica 50 mg capsule RxNorm: 670810 Take 1 Capsule(s) Oral QAM every morning 05/14/20 20 Inactive Lyrica 100 mg capsule RxNorm: 445993 Take 1 Capsule(s) Oral QHS every night [...] Inactive Nystop 100,000 unit/gram topical powder RxNorm: 871010 Apply to abd folds, under breasts and L side of groin Topical BID x 14 days, then BID PRN 04/08/20 20 Inactive dx: yeast dermatitis Lyrica 100 mg capsule RxNorm: 289245 Take 1 Capsule(s) Oral QHS every night at bedtime 03/13/20 20 Inactive Lyrica 50 mg capsule RxNorm: 041150 Take 1 Capsule(s) Oral QAM every morning 03/13/20 20 Inactive ketoconazole 2 % shampoo RxNorm: 944099 Apply Topical two times a week with showers 03/11/20 20 Inactive cholecalciferol (vitamin D3) 50 mcg (2,000 unit) tablet RxNorm: 190763 Take 1 Tablet(s) Oral QD 03/11/20 20 Inactive Zetia 10 mg tablet RxNorm: 164571 Take 1 Tablet(s) Oral QD 03/07/20 021 Inactive Zetia 10 mg tablet RxNorm: 741924 Take 1 Tablet(s) Oral QD 03/07/20 Inactive Lyrica 50 mg capsule RxNorm: 319637 Take 1 Capsule(s) Oral QAM every morning 02/15/20 Inactive Lyrica 100 mg capsule RxNorm: 878068 Take 1 Capsule(s) Oral QHS every night at bedtime 02/15/20 Inactive Lyrica 100 mg capsule RxNorm: 478362 Take 1 Capsule(s) Oral QHS every night at bedtime 02/15/20 Inactive Lyrica 50 mg capsule RxNorm: 585347 Take 1 Capsule(s) Oral QAM every morning 02/15/20 Inactive venlafaxine ER 75 mg capsule,extended release 24 hr RxNorm: 002182 Take 3 Capsule(s) Oral QD 06/12/19 Active polyethylene glycol 3350 17 gram/dose oral powder RxNorm: 184127 Take 17=1 capful Gram(s) Oral BID as needed mix with 4-8oz of liquid 06/12/19 Active Levemir FlexTouch U-100 Insulin 100 unit/mL (3 mL) subcutaneous pen RxNorm: 547278 Inject 80 Unit(s) Subcutaneous BID 07/14/19 23 023 Inactive loperamide 2 mg capsule RxNorm: 618645 Take 1 Capsule(s) Oral QID as needed 06/12/19 22 Active Novolog Flexpen U-100 Insulin aspart 100 unit/mL (3 mL) subcutaneous RxNorm: 0328647 Insert 30 Unit(s) Subcutaneous TID with meals [...] BP > OR = 140 CPT-4: G8753 06/10/2021 CUI BP LESS 90 CPT-4: G8754 06/10/2021 DSCHRG MED/CURRENT MED MERGE CPT-4: 1111F Vital Signs Date Vital 06/10/2021 Blood Pressure 1: 155/73 Code: 8480-6 Heart Rate 1: 82 bpm Code: 8867-4 Height: Code: 8302-2 SpO2: 92% Temperature: 36.5 (C) / 97.7 (F) Weight: Code: 3141-9 Reason For Visit No Reason For Visit data Encounters Encounter Performer Location Location Address Codes Date ([id number]) [facility] DAY [facility] Diagnosis: Candidiasis, intertrigo[ICD10: B37.2] Diagnosis: DVT (deep venous thrombosis)[ICD10: I82.409] Diagnosis: History of anemia due to CKD[ICD10: N18.9] Diagnosis: Stage 2 chronic kidney disease[ICD10: N18.2] Diagnosis: Hyperlipidemia associated with type 2 diabetes mellitus[ICD10: E11.69] Diagnosis: Hypertension associated with diabetes[ICD10: E11.59] Diagnosis: Stage 2 chronic 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[ICD10: E11.22] Diagnosis: Type 2 diabetes mellitus with diabetic polyneuropathy, with long-term current use of insulin[ICD10: E11.42] Tapan Shirley [facility] on [address] [address] CPT-4: 21702 06/10/2021 Plan of Care Planned Activity Notes Codes Status Date Referral: [facility]: [phone], [address] [id number] Referral Records Received 09/21/2022 Patient Education: Patient M edication Summary Completed 06/10/2021 Patient Education: Influenza Vaccine Completed 06/10/2021 Referral: [facility] [address]: [address] [id number] [place] Referral Completed 05/28/2021 Referral: General Cardiology Referral Complet ed 01/03/2021 Referral: General Psychologist Referral Close d Instructions Comment Date Leonid is a?? Male being seen living at [facility]. Initial BPS visit 01/2020. PMHx including DMII, CAD w/ 5 stents, Depression, Seizure Disorder and CKD stage 3. He moved into [facility] in 12/2019 but after a hospitalization 05/2021 he moved to [facility] to have closer nursing attention.??Sister Jyotsna involved in his care cell# [phone]??Guardian: Don (tapan met in person 09/01/21), now has Lexii (same group as don)Lab Schedule: Mar-/September* 10/06/2022 Chronic Kidney Disease 02/2021 labs GFR stable, no changes indicated.?? DVT (deep venous thrombosis) Patient to remain on eliquis at least 6months since DVT (Jun 2021), then will reassess need. Suspect he'll need indefinite anticoagulation due limited mobility, DM2, obesity, hyperlipidemia, HTN.?? Diabetes Reviewed BP today, no changes needed. Nursing to notify provider if patient is having many readings outside of this range so their treatment can be adjusted. BGs running high, AL to schedule endo appt and or at least have BGs sent to him.?? Due for an a1c today as last done in Feb but suspect it was checked in hospital so will await discharge paperwork.?? Candidiasis, intertrigo No skin concerns today. Cellulitis 05/17/21 when in her, treated with keflex [id number].?? . 06/10/2021
--- OUTSIDE RECORDS SUMMARY | 2022-11-09 23:19 | XMS_ITS | CCD ---
Author Name Unknown Organization Unknown Care Team Providers Care Sales And Events Coordinator Name Role Phone Tapan Shirley PA-C Primary Care Provider Unavailabl e Tapan Shirley PA-C Chronic Care Management Unavaila ble Summary Purpose DataExchange Insurance Providers Payer name Policy type / Coverage type Covered libertarian ID Effective Begin Date Effective End Date Medicare [place] Medicare Part B [id number] Unknown Unknown Medicaid [place] Medicare Part B [id number] Unknown Unknown Family history Runs in the family Diagnosis Age At Onset No Known Diseases N/A Social History Social History Element Codes Description Effec tive Dates Living arrangements Unknown Shelter 09/03/[address]: 9147313 Non-Smoker / No History of Smoking 09/02/[address]: 044334967 No Alcohol Consum ption 09/02/2020 Allergies, Adverse Reactions, Alerts Substance Reaction Codes Entered Date Inactivated Date Status LISINOPRIL RxNorm: 26566 02/12/2020 No Inactive Da te Active Metformin [...] 02/10/2021 Active Coronary artery disease invo lving [place] coronary artery of [place] heart, angina presence unspecified ICD-10: I25.10 ICD-9: [...] .30 ICD-9: 274.10 09/03/2020 Active long term acute care registered nurse (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 insulin ICD-10: Z79.4 09/03 [...] Fill Instructions hydralazine 50 mg tablet RxNorm: 556429 Take 1 Tablet(s) Oral QID 05/05/20 21 022 Inactive venlafaxine ER 225 mg tablet,extended release 24 hr RxNorm: 692652 Take 1 Tablet(s) Oral QD 05/05/20 21 022 Inactive isosorbide mononitrate ER 30 mg tablet,extended release 24 hr RxNorm: 921937 Take 1 Tablet(s) Oral QD 05/05/20 21 No Stop Date Active venlafaxine ER 225 mg tablet,extended release 24 hr RxNorm: 690562 Take 1 Tablet(s) Oral QD 05/05/20 21 021 Inactive hydralazine 50 mg tablet RxNorm: 442392 Take 1 Tablet(s) Oral QID 05/05/20 21 021 Inactive aspirin 81 mg tablet,delayed release RxNorm: 783051 Take 1 Tablet(s) Oral QD 11/15 022 Inactive Vitamin D2 1,250 mcg (50,000 unit) capsule RxNorm: 5056004 Take 1 Capsule(s) Oral QW once a week x 12 weeks 03/31/20 Inactive Zetia 10 mg tablet RxNorm: 136109 Take 1 Tablet(s) Oral QD 03/31/20 022 Inactive Vitamin D2 1,250 mcg (50,000 unit) capsule RxNorm: 2732688 Take 1 Capsule(s) Oral QW once a week 03/31/20 Inactive Zetia 10 mg tablet RxNorm: 168640 Take 1 Tablet(s) Oral QD 03/31/20 Inactive hydralazine 25 mg tablet RxNorm: 966997 Take 1 Tablet(s) Oral QID 03/31/20 021 Inactive hydralazine 25 mg tablet RxNorm: 022034 Take 1 Tablet(s) Oral QID 03/31/20 021 Inactive hydralazine 10 mg tablet RxNorm: 583257 Take 1 Tablet(s) Oral QID 03/03/20 021 Inactive cephalexin 500 mg tablet RxNorm: 706813 Take 1 Tablet(s) Oral QID 02/27/20 021 Inactive cephalexin 500 mg tablet RxNorm: 624713 Take 1 Tablet(s) Oral QID 02/27/20 021 Inactive lisinopril 40 mg tablet RxNorm: 086004 Take 1 Tablet(s) Oral QD 02/11/20 023 Inactive Eliquis 5 mg tablet RxNorm: 9827637 Take 1 Tablet(s) Oral BID 01/05/20 21 022 Inactive Eliquis 5 mg tablet RxNorm: 7022271 Take 2 Tablet(s) Oral QD 01/01/20 21 021 Inactive Lyrica 50 mg capsule RxNorm: 990411 Take 1 Capsule(s) Oral QAM every morning 12/24/19 21 021 Inactive Lyrica 100 mg capsule RxNorm: 130304 Take 1 Capsule(s) Oral QHS every night at bedtime 12/24/19 21 021 Inactive clotrimazole 1 % topical cream RxNorm: 088814 Apply to right foot and toes Topical BID 12/04/19 21 023 Inactive metoprolol succinate ER 200 mg tablet,extended release 24 hr RxNorm: 944726 Take 1 Tablet(s) Oral QD 12/04/19 21 023 Inactive ciprofloxacin 500 mg tablet RxNorm: 320363 Take 1 Tablet(s) Oral QD 11/30/19 21 021 Inactive DX ofloxacin otic drops Accu-Chek Guide test strips RxNorm: USE 1 TO CHECK GLUCOSE 4 TIMES DAILY AND NEEDED 11/15/19 21 023 Inactive Blood Glucose Test strips RxNorm: Use 1 Test Strip QID at PRN 11/05/19 21 023 Inactive E11.42 lisinopril 30 mg tablet RxNorm: 401165 Take 1 Tablet(s) Oral QD 10/30/19 021 Inactive lisinopril 20 mg tablet RxNorm: 856264 Take 1 Tablet(s) Oral QD 10/23/19 21 021 Inactive lisinopril 20 mg tablet RxNorm: 282748 Take 1 Tablet(s) Oral QD 10/23/19 21 021 Inactive lisinopril 10 mg tablet RxNorm: 428050 Take 1 Tablet(s) Oral QD 10/02/19 21 021 Inactive icosapent ethyl 1 gram capsule RxNorm: 0090881 Take 2 Capsule(s) (2 gm) Oral BID with meals 09/12/19 21 022 Inactive Okay to dispense one 2gm tab if you have that available. icosapent ethyl 1 gram capsule RxNorm: 1522983 Take 2 Capsule(s) Oral BID 09/12/19 21 021 Inactive Okay to dispense one 2gm tab if you have that available. amlodipine 10 mg tablet RxNorm: 648110 Take 1 Tablet(s) Oral QD 09/04/19 21 022 Inactive Levemir FlexTouch U-100 Insulin 100 unit/mL (3 mL) subcutaneous pen RxNorm: 306727 Inject 150 Unit(s) Subcutaneous BID 09/04/19 21 022 Inactive aspirin 81 mg tablet,delayed release RxNorm: 466546 Take 1 Tablet(s) Oral QD 09/04/19 21 Inactive venlafaxine ER 150 mg tablet,extended release 24 hr RxNorm: 899399 Take 1 Tablet(s) Oral QD 09/04/19 Inactive clotrimazole-betame thasone 1 %-0.05 % topical cream RxNorm: 584972 Apply to rash on red area on left abdomen/chest Topical BID 08/10/19 21 Inactive amlodipine 5 mg tablet RxNorm: 923742 Take 1 Tablet(s) Oral QD 07/31/19 Inactive cephalexin 500 mg tablet RxNorm: 054332 Take 1 Tablet(s) Oral BID BID - Twice Daily 07/31/19 Inactive Start 08/01/20 pantoprazole 40 mg tablet,delayed release RxNorm: 779331 Take 1 Tablet(s) Oral QAM every morning 07/08/19 022 Inactive senna 8.6 mg tablet RxNorm: 014813 Take 1 Tablet(s) Oral QD 07/08/19 022 Inactive Novolog Flexpen U-100 Insulin aspart 100 unit/mL (3 mL) subcutaneous RxNorm: 2750567 Administer per sliding scale Milliliter(s) Subcutaneous TID 151-200: 10 u; 201-250: 20 u; 251-300: 30 u; 301-350: 40 u; 351-400: 50 u. 07/08/19 21 022 Inactive Novolog Flexpen U-100 Insulin aspart 100 unit/mL (3 mL) subcutaneous RxNorm: 9868501 Inject 85 Unit(s) Subcutaneous TID 07/08/19 022 Inactive pravastatin 80 mg tablet RxNorm: 495339 Take 1 Tablet(s) Oral QHS every night at bedtime 07/08/19 022 Inactive clotrimazole 1 % topical cream RxNorm: 073988 Apply to bilateral groin areas Topical BID 07/08/19 022 Inactive carbamazepine 200 mg tablet RxNorm: 528603 Take 1 Tablet(s) Oral BID 07/08/19 022 Inactive torsemide 20 mg tablet RxNorm: 476468 Take 1 Tablet(s) Oral QD 07/08/19 023 Inactive clopidogrel 75 mg tablet RxNorm: 143562 Take 1 Tablet(s) Oral QD 07/08/19 021 Inactive Blood Glucose Test strips RxNorm: Use 1 Test Strip QID at PRN 07/08/19 021 Inactive E11.42 lisinopril 5 mg tablet RxNorm: 231877 Take 1 Tablet(s) Oral QD 07/08/19 Inactive metoprolol succinate ER 200 mg tablet,extended release 24 hr RxNorm: 236965 Take 1 Tablet(s) Oral QD 07/08/19 021 Inactive Vitamin D3 25 mcg (1,000 unit) tablet RxNorm: 528687 Take 1 Tablet(s) Oral QD 07/08/19 021 Inactive isosorbide dinitrate 30 mg tablet RxNorm: 860101 Take 1 Tablet(s) Oral QD 07/08/19 021 Inactive Levemir FlexTouch U-100 Insulin 100 unit/mL (3 mL) subcutaneous pen RxNorm: 420155 Inject 140 Unit(s) Subcutaneous BID 07/08/19 021 Inactive venlafaxine 75 mg tablet RxNorm: 137639 Take 1 Tablet(s) Oral QD 07/08/19 021 Inactive acetaminophen 500 mg tablet RxNorm: 447847 Take 1 Tablet(s) Oral TID as needed for headache 06/18/19 021 Inactive acetaminophen 500 mg tablet RxNorm: 301917 Take 1 Tablet(s) Oral TID as needed for headache 06/18/19 021 Inactive Lyrica 100 mg capsule RxNorm: 791836 Take 1 Capsule(s) Oral QHS every night at bedtime 06/11/19 021 Inactive Lyrica 50 mg capsule RxNorm: 134140 Take 1 Capsule(s) Oral QAM every morning 06/10/19 21 021 Inactive hydrocortisone 2.5 % topical cream RxNorm: 109641 Apply to bilateral groin creases Topical BID 05/15/20 20 021 Inactive clotrimazole 1 % topical cream RxNorm: 094355 Apply to bilateral groin areas Topical BID 05/15/20 20 Inactive Lyrica 50 mg capsule RxNorm: 576303 Take 1 Capsule(s) Oral QAM every morning 05/14/20 20 Inactive Lyrica 100 mg capsule RxNorm: 239150 Take 1 Capsule(s) Oral QHS every night [...] Inactive Nystop 100,000 unit/gram topical powder RxNorm: 346121 Apply to abd folds, under breasts and L side of groin Topical BID x 14 days, then BID PRN 04/08/20 20 021 Inactive dx: yeast dermatitis Lyrica 100 mg capsule RxNorm: 996087 Take 1 Capsule(s) Oral QHS every night at bedtime 03/13/20 20 020 Inactive Lyrica 50 mg capsule RxNorm: 908580 Take 1 Capsule(s) Oral QAM every morning 03/13/20 20 020 Inactive ketoconazole 2 % shampoo RxNorm: 521081 Apply Topical two times a week with showers 03/11/20 20 Inactive cholecalciferol (vitamin D3) 50 mcg (2,000 unit) tablet RxNorm: 127930 Take 1 Tablet(s) Oral QD 03/11/20 Inactive Zetia 10 mg tablet RxNorm: 029506 Take 1 Tablet(s) Oral QD 03/07/20 Inactive Zetia 10 mg tablet RxNorm: 717784 Take 1 Tablet(s) Oral QD 03/07/20 Inactive Lyrica 50 mg capsule RxNorm: 482736 Take 1 Capsule(s) Oral QAM every morning 02/15/20 Inactive Lyrica 100 mg capsule RxNorm: 099159 Take 1 Capsule(s) Oral QHS every night at bedtime 02/15/20 Inactive Lyrica 100 mg capsule RxNorm: 757197 Take 1 Capsule(s) Oral QHS every night at bedtime 02/15/20 Inactive Lyrica 50 mg capsule RxNorm: 774647 Take 1 Capsule(s) Oral QAM every morning [...] Codes Status Date Referral: [facility] WPtel: [address], [address] [id number] [place] Referral Records Received 09/21/2022 Referral: [facility] WPtel: [address] [id number] [place] Referral Completed 05/28/2021 Referral: General Cardiology Referral Complet ed 01/03/2021 Referral: General Psychologist Referral Close d Instructions Comment Date Leonid is a?? Male being seen living at [facility]. Initial BPS visit 01/2020. PMHx including DMII, CAD w/ 5 stents, Depression, Seizure Disorder and CKD stage 3. He moved into [facility] in 12/2019 but after a hospitalization 05/2021 he moved to the [facility] to have closer nursing attention.??Sister Jyotsna involved in his care cell# [phone]??Guardian: Don (tapan met in person 09/01/21), now has Lexii (same group as don)Lab Schedule: * 10/06/2022
--- OUTSIDE RECORDS SUMMARY | 2022-11-09 23:20 | XMS_ITS | CCD ---
Author Name Unknown Organization Unknown Care Team Providers Care Recreational Counselor Name Role Phone Tapan Shirley PA-C Primary Care Provider Unavailabl e Tapan Shirley PA-C Chronic Care Management Unavaila ble Summary Purpose DataExchange Insurance Providers Payer name Policy type / Coverage type Covered republican ID Effective Begin Date Effective End Date Medicare [place] Medicare Part B [id number] Unknown Unknown Medicaid [place] Part B [id number] Unknown Unknown Family history Runs in the family Diagnosis Age At Onset No Known Diseases N/A Social History Social History Element Codes Description Effec tive Dates Living arrangements Unknown Fdc 09/03/[address]: 2044028 Non-Smoker / No History of Smoking 09/02/[address]: 571779639 No Alcohol Consum ption 09/02/2020 Allergies, Adverse Reactions, Alerts Substance Reaction Codes Entered Date Inactivated Date Status LISINOPRIL RxNorm: 65184 02/12/2020 No Inactive Da te Active Metformin HCl Unknown 02/12/2020 No Inactive Cristiano e Active Problems Condition Codes Effective Dates Condition St atus Coronary artery disease invo lving [place] coronary artery of [place] heart, angina presence unspecified ICD-10: I25.10 ICD-9: 414.01 07/08/2021 Active DVT (deep venous thrombosis) ICD-10: I82 .409 ICD-9: 453.40 07/08/2021 Active Hyperlipidemia associated wi th type 2 diabetes mellitus ICD-10: E11.69 ICD-9: 250.80 07/08/2021 Active Hypertension associated with diabetes ICD-10: E11.59 ICD-9: 250.80 07/08/2021 Active Seizure disorder ICD-10: G40.909 ICD-9: 345.90 07/08/2021 Active Stage 2 chronic kidney disea se due to type 2 diabetes mellitus ICD-10: E11.22 ICD-9: 250.40 07/08/2021 Active Type 2 diabetes mellitus wit h diabetic polyneuropathy, with long-term current use of insulin ICD-10: E11.42 ICD-9: 250.60 07/08/2021 Active Encounter for immunization ICD-10: Z23 [...] ICD-10: M10 .30 ICD-9: 274.10 09/03/2020 Active 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 Dx:E11.42. 06/05/19 022 Inactive ok to substitute [...] test strip hydralazine 50 mg tablet RxNorm: 412142 Take 1 Tablet(s) Oral QID 05/05/20 21 022 Inactive isosorbide mononitrate ER 30 mg tablet,extended release 24 hr RxNorm: 147586 Take 1 Tablet(s) Oral QD 05/05/20 21 No Stop Date Active venlafaxine ER 225 mg tablet,extended release 24 hr RxNorm: 278399 Take 1 Tablet(s) Oral QD 05/05/20 21 021 Inactive venlafaxine ER 225 mg tablet,extended release 24 hr RxNorm: 982984 Take 1 Tablet(s) Oral QD 05/05/20 21 022 Inactive hydralazine 50 mg tablet RxNorm: 554836 Take 1 Tablet(s) Oral QID 12 021 Inactive aspirin 81 mg tablet,delayed release RxNorm: 917128 Take 1 Tablet(s) Oral QD 03/31/20 Inactive Vitamin D2 1,250 mcg (50,000 unit) capsule RxNorm: 7123300 Take 1 Capsule(s) Oral QW once a week x 12 weeks 03/31/20 Inactive Zetia 10 mg tablet RxNorm: 396134 Take 1 Tablet(s) Oral QD 03/31/20 022 Inactive Vitamin D2 1,250 mcg (50,000 unit) capsule RxNorm: 2869836 Take 1 Capsule(s) Oral QW once a week 03/31/20 Inactive Zetia 10 mg tablet RxNorm: 297794 Take 1 Tablet(s) Oral QD 03/31/20 Inactive hydralazine 25 mg tablet RxNorm: 451418 Take 1 Tablet(s) Oral QID 03/31/20 021 Inactive hydralazine 25 mg tablet RxNorm: 619104 Take 1 Tablet(s) Oral QID 03/31/20 021 Inactive hydralazine 10 mg tablet RxNorm: 480116 Take 1 Tablet(s) Oral QID 03/03/20 021 Inactive cephalexin 500 mg tablet RxNorm: 164618 Take 1 Tablet(s) Oral QID 02/27/20 021 Inactive cephalexin 500 mg tablet RxNorm: 804536 Take 1 Tablet(s) Oral QID 02/27/20 021 Inactive lisinopril 40 mg tablet RxNorm: 255237 Take 1 Tablet(s) Oral QD 02/11/20 21 023 Inactive Eliquis 5 mg tablet RxNorm: 8905133 Take 1 Tablet(s) Oral BID 01/05/20 21 022 Inactive Eliquis 5 mg tablet RxNorm: 1526557 Take 2 Tablet(s) Oral QD 01/01/20 21 021 Inactive Lyrica 50 mg capsule RxNorm: 943632 Take 1 Capsule(s) Oral QAM every morning 12/24/19 021 Inactive Lyrica 100 mg capsule RxNorm: 505733 Take 1 Capsule(s) Oral QHS every night at bedtime 12/24/19 021 Inactive clotrimazole 1 % topical cream RxNorm: 304369 Apply to right foot and toes Topical BID 12/04/19 21 023 Inactive metoprolol succinate ER 200 mg tablet,extended release 24 hr RxNorm: 162684 Take 1 Tablet(s) Oral QD 12/04/19 21 023 Inactive ciprofloxacin 500 mg tablet RxNorm: 828765 Take 1 Tablet(s) Oral QD 11/30/19 21 021 Inactive DX ofloxacin otic drops Accu-Chek Guide test strips RxNorm: USE 1 TO CHECK GLUCOSE 4 TIMES DAILY AND NEEDED 11/15/19 023 Inactive Blood Glucose Test strips RxNorm: Use 1 Test Strip QID at PRN 11/05/19 21 023 Inactive E11.42 lisinopril 30 mg tablet RxNorm: 489533 Take 1 Tablet(s) Oral QD 10/30/19 021 Inactive lisinopril 20 mg tablet RxNorm: 476938 Take 1 Tablet(s) Oral QD 10/23/19 21 021 Inactive lisinopril 20 mg tablet RxNorm: 330602 Take 1 Tablet(s) Oral QD 10/23/19 021 Inactive lisinopril 10 mg tablet RxNorm: 455175 Take 1 Tablet(s) Oral QD 10/02/19 21 021 Inactive icosapent ethyl 1 gram capsule RxNorm: 1830887 Take 2 Capsule(s) (2 gm) Oral BID with meals 09/12/19 022 Inactive Okay to dispense one 2gm tab if you have that available. icosapent ethyl 1 gram capsule RxNorm: 2643393 Take 2 Capsule(s) Oral BID 09/12/19 21 021 Inactive Okay to dispense one 2gm tab if you have that available. amlodipine 10 mg tablet RxNorm: 993791 Take 1 Tablet(s) Oral QD 09/04/19 022 Inactive aspirin 81 mg tablet,delayed release RxNorm: 776137 Take 1 Tablet(s) Oral QD 09/04/19 021 Inactive Levemir FlexTouch U-100 Insulin 100 unit/mL (3 mL) subcutaneous pen RxNorm: 939098 Inject 150 Unit(s) Subcutaneous BID 09/04/19 022 Inactive venlafaxine ER 150 mg tablet,extended release 24 hr RxNorm: 837821 Take 1 Tablet(s) Oral QD 09/04/19 021 Inactive clotrimazole-betame thasone 1 %-0.05 % topical cream RxNorm: 965684 Apply to rash on red area on left abdomen/chest Topical BID 08/10/19 21 021 Inactive amlodipine 5 mg tablet RxNorm: 227050 Take 1 Tablet(s) Oral QD 07/31/19 Inactive cephalexin 500 mg tablet RxNorm: 922893 Take 1 Tablet(s) Oral BID BID - Twice Daily 07/31/19 021 Inactive Start 08/01/20 pantoprazole 40 mg tablet,delayed release RxNorm: 845661 Take 1 Tablet(s) Oral QAM every morning 07/08/19 022 Inactive senna 8.6 mg tablet RxNorm: 049779 Take 1 Tablet(s) Oral QD 07/08/19 022 Inactive pravastatin 80 mg tablet RxNorm: 973654 Take 1 Tablet(s) Oral QHS every night at bedtime 07/08/19 022 Inactive clotrimazole 1 % topical cream RxNorm: 344001 Apply to bilateral groin areas Topical BID 07/08/19 022 Inactive carbamazepine 200 mg tablet RxNorm: 088239 Take 1 Tablet(s) Oral BID 07/08/19 21 022 Inactive torsemide 20 mg tablet RxNorm: 445672 Take 1 Tablet(s) Oral QD 07/08/19 21 023 Inactive clopidogrel 75 mg tablet RxNorm: 559182 Take 1 Tablet(s) Oral QD 07/08/19 021 Inactive Blood Glucose Test strips RxNorm: Use 1 Test Strip QID at PRN 07/08/19 21 Inactive E11.42 Novolog Flexpen U-100 Insulin aspart 100 unit/mL (3 mL) subcutaneous RxNorm: 6210033 Administer per sliding scale Milliliter(s) Subcutaneous TID 151-200: 10 u; 201-250: 20 u; 251-300: 30 u; 301-350: 40 u; 351-400: 50 u. 07/08/19 21 022 Inactive lisinopril 5 mg tablet RxNorm: 897699 Take 1 Tablet(s) Oral QD 07/08/19 21 Inactive Novolog Flexpen U-100 Insulin aspart 100 unit/mL (3 mL) subcutaneous RxNorm: 2590190 Inject 85 Unit(s) Subcutaneous TID 07/08/19 Inactive metoprolol succinate ER 200 mg tablet,extended release 24 hr RxNorm: 143058 Take 1 Tablet(s) Oral QD 07/08/19 21 Inactive Vitamin D3 25 mcg (1,000 unit) tablet RxNorm: 249359 Take 1 Tablet(s) Oral QD 07/08/19 Inactive isosorbide dinitrate 30 mg tablet RxNorm: 728760 Take 1 Tablet(s) Oral QD 07/08/19 021 Inactive Levemir FlexTouch U-100 Insulin 100 unit/mL (3 mL) subcutaneous pen RxNorm: 408604 Inject 140 Unit(s) Subcutaneous BID 07/08/19 Inactive venlafaxine 75 mg tablet RxNorm: 848328 Take 1 Tablet(s) Oral QD 07/08/19 Inactive acetaminophen 500 mg tablet RxNorm: 563409 Take 1 Tablet(s) Oral TID as needed for headache 06/18/19 21 Inactive acetaminophen 500 mg tablet RxNorm: 113102 Take 1 Tablet(s) Oral TID as needed for headache 06/18/19 21 Inactive Lyrica 100 mg capsule RxNorm: 458703 Take 1 Capsule(s) Oral QHS every night at bedtime 06/11/19 21 021 Inactive Lyrica 50 mg capsule RxNorm: 980965 Take 1 Capsule(s) Oral QAM every morning 06/10/19 21 021 Inactive hydrocortisone 2.5 % topical cream RxNorm: 842864 Apply to bilateral groin creases Topical BID 05/15/20 20 021 Inactive clotrimazole 1 % topical cream RxNorm: 505661 Apply to bilateral groin areas Topical BID 05/15/20 20 021 Inactive Lyrica 50 mg capsule RxNorm: 015085 Take 1 Capsule(s) Oral QAM every morning 05/14/20 20 Inactive Lyrica 100 mg capsule RxNorm: 538541 Take 1 Capsule(s) Oral QHS every night [...] Inactive Nystop 100,000 unit/gram topical powder RxNorm: 192794 Apply to abd folds, under breasts and L side of groin Topical BID x 14 days, then BID PRN 04/08/20 20 021 Inactive dx: yeast dermatitis Lyrica 100 mg capsule RxNorm: 218480 Take 1 Capsule(s) Oral QHS every night at bedtime 03/13/20 20 020 Inactive Lyrica 50 mg capsule RxNorm: 475743 Take 1 Capsule(s) Oral QAM every morning 03/13/20 20 Inactive ketoconazole 2 % shampoo RxNorm: 839612 Apply Topical two times a week with showers 03/11/20 20 Inactive cholecalciferol (vitamin D3) 50 mcg (2,000 unit) tablet RxNorm: 922755 Take 1 Tablet(s) Oral QD 03/11/20 20 Inactive Zetia 10 mg tablet RxNorm: 796836 Take 1 Tablet(s) Oral QD 03/07/20 20 Inactive Zetia 10 mg tablet RxNorm: 130311 Take 1 Tablet(s) Oral QD 03/07/20 20 Inactive Lyrica 50 mg capsule RxNorm: 862718 Take 1 Capsule(s) Oral QAM every morning 02/15/20 20 Inactive Lyrica 100 mg capsule RxNorm: 919520 Take 1 Capsule(s) Oral QHS every night at bedtime 02/15/20 20 Inactive Lyrica 100 mg capsule RxNorm: 993604 Take 1 Capsule(s) Oral QHS every night at bedtime 02/15/20 Inactive Lyrica 50 mg capsule RxNorm: 856521 Take 1 Capsule(s) Oral QAM every morning 02/15/20 20 Inactive venlafaxine ER 75 mg capsule,extended release 24 hr RxNorm: 379956 Take 3 Capsule(s) Oral QD 06/12/19 Active polyethylene glycol 3350 17 gram/dose oral powder RxNorm: 140795 Take 17=1 capful Gram(s) Oral BID as needed mix with 4-8oz of liquid 06/12/19 Active Levemir FlexTouch U-100 Insulin 100 unit/mL (3 mL) subcutaneous pen RxNorm: 977659 Inject 80 Unit(s) Subcutaneous BID 07/14/19 23 023 Inactive loperamide 2 mg capsule RxNorm: 202064 Take 1 Capsule(s) Oral QID as needed 06/12/19 22 Active Novolog Flexpen U-100 Insulin aspart 100 unit/mL (3 mL) subcutaneous RxNorm: 5163978 Insert 30 Unit(s) Subcutaneous TID with meals [...] Codes Status Date Referral: [facility] WPtel: [phone], [address] [id number] [place] Referral Records Received 09/21/2022 Referral: [facility] WPtel: [address] [id number] [place] Referral Completed 05/28/2021 Referral: General Cardiology [...] [facility] to have closer nursing attention.??Sister Jyotsna involved in his care cell# [phone]??Guardian: Don (tapan met in person 09/01/21), now has Lexii (same group as don)Lab Schedule: * 10/06/2022
--- OUTSIDE RECORDS SUMMARY | 2022-11-09 23:20 | XMS_ITS | CCD ---
Author Name Tapan Shirley PA-C Address [address] [place] [address] Phone Organization [facility] Phone Care Team Providers Care Sugar Presser Name Role Phone Tapan Shirley PA-C Primary Care Provider Unavailabl e Tapan Shirley PA-C Chronic Care Management Unavaila ble Summary Purpose DataExchange Insurance Providers Payer name Policy type / Coverage type Covered alliance party ID Effective Begin Date Effective End Date [place] Part B [id number] Unknown [place] B [id number] Unknown Unknown Family history Runs in the family Diagnosis Age At Onset No Known Diseases N/A Social History Social History Element Codes Description Effec tive Dates Living arrangements Unknown Shelter 09/03/[address]: 9103604 Non-Smoker / No History of Smoking 09/02/[address]: 759452537 No Alcohol Consum ption 09/02/2020 Allergies, Adverse Reactions, Alerts Substance Reaction Codes Entered Date Inactivated Date Status LISINOPRIL RxNorm: 65645 02/12/2020 No Inactive Da te Active Metformin HCl Unknown 02/12/2020 No Inactive Cristiano e Active Problems Condition Codes Effective Dates Condition St atus Coronary artery disease invo lving gambell coronary artery of gambell heart, angina presence unspecified ICD-10: I25.10 ICD-9: [...] Start Date Stop Date Status Fill Instructions Levemir FlexTouch U-100 Insulin 100 unit/mL (3 mL) subcutaneous pen RxNorm: 684627 Inject 83 Unit(s) Subcutaneous BID 07/08/19 22 [...] test strip hydralazine 50 mg tablet RxNorm: 370730 Take 1 Tablet(s) Oral QID 05/05/20 21 022 Inactive isosorbide mononitrate ER 30 mg tablet,extended release 24 hr RxNorm: 510425 Take 1 Tablet(s) Oral QD 05/05/20 No Stop Date Active venlafaxine ER 225 mg tablet,extended release 24 hr RxNorm: 003991 Take 1 Tablet(s) Oral QD 05/05/20 21 021 Inactive venlafaxine ER 225 mg tablet,extended release 24 hr RxNorm: 597747 Take 1 Tablet(s) Oral QD 05/05/20 21 022 Inactive hydralazine 50 mg tablet RxNorm: 415742 Take 1 Tablet(s) Oral QID 05/05/20 21 021 Inactive aspirin 81 mg tablet,delayed release RxNorm: 741655 Take 1 Tablet(s) Oral QD 03/31/20 21 022 Inactive Vitamin D2 1,250 mcg (50,000 unit) capsule RxNorm: 3632123 Take 1 Capsule(s) Oral QW once a week x 12 weeks 03/31/20 Inactive Zetia 10 mg tablet RxNorm: 408911 Take 1 Tablet(s) Oral QD 03/31/20 Inactive Vitamin D2 1,250 mcg (50,000 unit) capsule RxNorm: 5820615 Take 1 Capsule(s) Oral QW once a week 03/31/20 Inactive Zetia 10 mg tablet RxNorm: 229011 Take 1 Tablet(s) Oral QD 03/31/20 Inactive hydralazine 25 mg tablet RxNorm: 730816 Take 1 Tablet(s) Oral QID 03/31/20 Inactive hydralazine 25 mg tablet RxNorm: 311697 Take 1 Tablet(s) Oral QID 03/31/20 021 Inactive hydralazine 10 mg tablet RxNorm: 846957 Take 1 Tablet(s) Oral QID 03/03/20 021 Inactive cephalexin 500 mg tablet RxNorm: 185163 Take 1 Tablet(s) Oral QID 02/27/20 021 Inactive cephalexin 500 mg tablet RxNorm: 547133 Take 1 Tablet(s) Oral QID 02/27/20 021 Inactive lisinopril 40 mg tablet RxNorm: 123124 Take 1 Tablet(s) Oral QD 02/11/20 023 Inactive Eliquis 5 mg tablet RxNorm: 3322263 Take 1 Tablet(s) Oral BID 01/05/20 022 Inactive Eliquis 5 mg tablet RxNorm: 1824968 Take 2 Tablet(s) Oral QD 01/01/20 021 Inactive Lyrica 50 mg capsule RxNorm: 046931 Take 1 Capsule(s) Oral QAM every morning 12/24/19 021 Inactive Lyrica 100 mg capsule RxNorm: 164836 Take 1 Capsule(s) Oral QHS every night at bedtime 12/24/19 021 Inactive clotrimazole 1 % topical cream RxNorm: 875247 Apply to right foot and toes Topical BID 12/04/19 21 023 Inactive metoprolol succinate ER 200 mg tablet,extended release 24 hr RxNorm: 123753 Take 1 Tablet(s) Oral QD 12/04/19 023 Inactive ciprofloxacin 500 mg tablet RxNorm: 073391 Take 1 Tablet(s) Oral QD 11/30/19 021 Inactive DX ofloxacin otic drops Accu-Chek Guide test strips RxNorm: USE 1 TO CHECK GLUCOSE 4 TIMES DAILY AND NEEDED 11/15/19 21 023 Inactive Blood Glucose Test strips RxNorm: Use 1 Test Strip QID at PRN 11/05/19 21 023 Inactive E11.42 lisinopril 30 mg tablet RxNorm: 888319 Take 1 Tablet(s) Oral QD 10/30/19 021 Inactive lisinopril 20 mg tablet RxNorm: 352562 Take 1 Tablet(s) Oral QD 10/23/19 021 Inactive lisinopril 20 mg tablet RxNorm: 521070 Take 1 Tablet(s) Oral QD 10/23/19 021 Inactive lisinopril 10 mg tablet RxNorm: 072301 Take 1 Tablet(s) Oral QD 10/02/19 021 Inactive icosapent ethyl 1 gram capsule RxNorm: 1665219 Take 2 Capsule(s) (2 gm) Oral BID with meals 09/12/19 022 Inactive Okay to dispense one 2gm tab if you have that available. icosapent ethyl 1 gram capsule RxNorm: 3517371 Take 2 Capsule(s) Oral BID 09/12/19 21 021 Inactive Okay to dispense one 2gm tab if you have that available. amlodipine 10 mg tablet RxNorm: 951786 Take 1 Tablet(s) Oral QD 09/04/19 21 022 Inactive aspirin 81 mg tablet,delayed release RxNorm: 600125 Take 1 Tablet(s) Oral QD 09/04/19 21 021 Inactive Levemir FlexTouch U-100 Insulin 100 unit/mL (3 mL) subcutaneous pen RxNorm: 531833 Inject 150 Unit(s) Subcutaneous BID 09/04/19 21 022 Inactive venlafaxine ER 150 mg tablet,extended release 24 hr RxNorm: 061605 Take 1 Tablet(s) Oral QD 09/04/19 21 021 Inactive clotrimazole-betame thasone 1 %-0.05 % topical cream RxNorm: 032963 Apply to rash on red area on left abdomen/chest Topical BID 08/10/19 21 021 Inactive amlodipine 5 mg tablet RxNorm: 138417 Take 1 Tablet(s) Oral QD 07/31/19 Inactive cephalexin 500 mg tablet RxNorm: 143295 Take 1 Tablet(s) Oral BID BID - Twice Daily 07/31/19 021 Inactive Start 08/01/20 pantoprazole 40 mg tablet,delayed release RxNorm: 716450 Take 1 Tablet(s) Oral QAM every morning 07/08/19 022 Inactive senna 8.6 mg tablet RxNorm: 926337 Take 1 Tablet(s) Oral QD 07/08/19 022 Inactive pravastatin 80 mg tablet RxNorm: 497583 Take 1 Tablet(s) Oral QHS every night at bedtime 07/08/19 022 Inactive clotrimazole 1 % topical cream RxNorm: 365754 Apply to bilateral groin areas Topical BID 07/08/19 21 022 Inactive carbamazepine 200 mg tablet RxNorm: 889893 Take 1 Tablet(s) Oral BID 07/08/19 21 022 Inactive torsemide 20 mg tablet RxNorm: 571264 Take 1 Tablet(s) Oral QD 07/08/19 21 023 Inactive clopidogrel 75 mg tablet RxNorm: 365257 Take 1 Tablet(s) Oral QD 07/08/19 21 021 Inactive Blood Glucose Test strips RxNorm: Use 1 Test Strip QID at PRN 07/08/19 21 021 Inactive E11.42 Novolog Flexpen U-100 Insulin aspart 100 unit/mL (3 mL) subcutaneous RxNorm: 9480181 Administer per sliding scale Milliliter(s) Subcutaneous TID 151-200: 10 u; 201-250: 20 u; 251-300: 30 u; 301-350: 40 u; 351-400: 50 u. 07/08/19 022 Inactive lisinopril 5 mg tablet RxNorm: 792851 Take 1 Tablet(s) Oral QD 07/08/19 21 021 Inactive Novolog Flexpen U-100 Insulin aspart 100 unit/mL (3 mL) subcutaneous RxNorm: 7969358 Inject 85 Unit(s) Subcutaneous TID 07/08/19 Inactive metoprolol succinate ER 200 mg tablet,extended release 24 hr RxNorm: 519111 Take 1 Tablet(s) Oral QD 07/08/19 021 Inactive Vitamin D3 25 mcg (1,000 unit) tablet RxNorm: 147188 Take 1 Tablet(s) Oral QD 07/08/19 021 Inactive isosorbide dinitrate 30 mg tablet RxNorm: 011853 Take 1 Tablet(s) Oral QD 07/08/19 021 Inactive Levemir FlexTouch U-100 Insulin 100 unit/mL (3 mL) subcutaneous pen RxNorm: 639005 Inject 140 Unit(s) Subcutaneous BID 07/08/19 021 Inactive venlafaxine 75 mg tablet RxNorm: 283988 Take 1 Tablet(s) Oral QD 07/08/19 Inactive acetaminophen 500 mg tablet RxNorm: 140984 Take 1 Tablet(s) Oral TID as needed for headache 06/18/19 021 Inactive acetaminophen 500 mg tablet RxNorm: 297038 Take 1 Tablet(s) Oral TID as needed for headache 06/18/19 Inactive Lyrica 100 mg capsule RxNorm: 513752 Take 1 Capsule(s) Oral QHS every night at bedtime 06/11/19 021 Inactive Lyrica 50 mg capsule RxNorm: 562091 Take 1 Capsule(s) Oral QAM every morning 06/10/1906 06/26/2 021 Inactive hydrocortisone 2.5 % topical cream RxNorm: 533195 Apply to bilateral groin creases Topical BID 05/15/20 20 021 Inactive clotrimazole 1 % topical cream RxNorm: 904560 Apply to bilateral groin areas Topical BID 05/15/20 20 021 Inactive Lyrica 50 mg capsule RxNorm: 440652 Take 1 Capsule(s) Oral QAM every morning 05/14/20 20 020 Inactive Lyrica 100 mg capsule RxNorm: 576163 Take 1 Capsule(s) Oral QHS every night [...] Inactive Nystop 100,000 unit/gram topical powder RxNorm: 189425 Apply to abd folds, under breasts and L side of groin Topical BID x 14 days, then BID PRN 04/08/20 20 021 Inactive dx: yeast dermatitis Lyrica 100 mg capsule RxNorm: 851739 Take 1 Capsule(s) Oral QHS every night at bedtime 03/13/20 20 020 Inactive Lyrica 50 mg capsule RxNorm: 949689 Take 1 Capsule(s) Oral QAM every morning 03/13/20 20 020 Inactive ketoconazole 2 % shampoo RxNorm: 248800 Apply Topical two times a week with showers 03/11/20 Inactive cholecalciferol (vitamin D3) 50 mcg (2,000 unit) tablet RxNorm: 791938 Take 1 Tablet(s) Oral QD 03/11/20 Inactive Zetia 10 mg tablet RxNorm: 458977 Take 1 Tablet(s) Oral QD 03/07/20 Inactive Zetia 10 mg tablet RxNorm: 552810 Take 1 Tablet(s) Oral QD 03/07/20 Inactive Lyrica 50 mg capsule RxNorm: 515487 Take 1 Capsule(s) Oral QAM every morning 02/15/20 Inactive Lyrica 100 mg capsule RxNorm: 609496 Take 1 Capsule(s) Oral QHS every night at bedtime 02/15/20 Inactive Lyrica 100 mg capsule RxNorm: 901420 Take 1 Capsule(s) Oral QHS every night at bedtime 02/15/20 Inactive Lyrica 50 mg capsule RxNorm: 015698 Take 1 Capsule(s) Oral QAM every morning 02/15/20 Inactive venlafaxine ER 75 mg capsule,extended release 24 hr RxNorm: 066454 Take 3 Capsule(s) Oral QD 06/12/19 Active polyethylene glycol 3350 17 gram/dose oral powder RxNorm: 552313 Take 17=1 capful Gram(s) Oral BID as needed mix with 4-8oz of liquid 06/12/19 Active Levemir FlexTouch U-100 Insulin 100 unit/mL (3 mL) subcutaneous pen RxNorm: 536142 Inject 80 Unit(s) Subcutaneous BID 07/14/19 23 023 Inactive loperamide 2 mg capsule RxNorm: 259406 Take 1 Capsule(s) Oral QID as needed 06/12/19 Active Novolog Flexpen U-100 Insulin aspart 100 unit/mL (3 mL) subcutaneous RxNorm: 9313890 Insert 30 Unit(s) Subcutaneous TID with meals [...] CVX: 115 [id number] Vital Signs Date Vital 07/08/2021 Blood Pressure 1: 122/59 Code: 8480-6 Heart Rate 1: 71 bpm Code: 8867-4 Height: Code: 8302-2 SpO2: 97% Temperature: 36.4 (C) / 97.5 (F) Weight: Code: 3141-9 Reason For Visit No Reason For Visit data Encounters Encounter Performer Location Location Address Codes Date (27513) DOMICIL VISIT EST PAT Diagnosis: Type 2 diabetes mellitus with diabetic polyneuropathy, with long-term current use of insulin[ICD10: E11.42] Diagnosis: Hyperlipidemia associated with type 2 diabetes mellitus[ICD10: E11.69] Diagnosis: Hypertension associated with diabetes[ICD10: E11.59] Diagnosis: Stage 2 chronic 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[ICD10: E11.22] Diagnosis: Coronary artery disease involving gambell coronary artery of gambell heart, angina presence unspecified[ICD10: I25.10] Diagnosis: Seizure disorder[ICD10: G40.909] Diagnosis: DVT (deep venous thrombosis)[ICD10: I82.409] Tapan Shirley [facility] on [address] [address] CPT-4: 25392 07/08/2021 Plan of Care Planned Activity Notes Codes Status Date Referral: [facility] WPtel: [address], [address] [id number] [place] Referral Records Received 09/21/2022 Patient Education: Patient M edication Summary Completed 07/08/2021 Patient Education: Influenza Vaccine Completed 07/08/2021 Referral: [facility] WPtel: [address] [id number] [place] Referral Completed 05/28/2021 Referral: General Cardiology Referral Complet ed 01/03/2021 Referral: General Psychologist Referral Close d Instructions Comment Date Leonid is a?? Male being seen living at [facility]. Initial BPS visit 01/2020. PMHx including DMII, CAD w/ 5 stents, Depression, Seizure Disorder and CKD stage 3. He moved into [facility] in 12/2019 but after a hospitalization 05/2021 he moved to the [facility] to have closer nursing attention.??Sister Jyotsna involved in his care cell# [phone]??Guardian: Don (tapan met in person 09/01/21), now has Lexii (same group as don)Lab Schedule: * 10/06/2022 Ischemic Heart Disease Should be following closely with greenhouse specialist but refusing to see any specialist while living at this home.?? Diabetes refuses to see endo until he gets back into his home in [place] but metromobility won't pu there so advising nursing set up a telehealth appt. Since BGs are in the 300s, will increase levemir from 80units BID to 83units BID. Continue sliding scale.?? DVT (deep venous thrombosis) For now, continue anticoagulation due limited mobility, DM2, obesity, hyperlipidemia, HTN.?? Epilepsy Will monitor carbamazepine levels with routine labs.?? . 07/08/2021
--- OUTSIDE RECORDS SUMMARY | 2022-11-09 23:20 | XMS_ITS | CCD ---
Author Name Tapan Shirley PA-C Address [address] [facility] [address] [place] [address] Phone Organization [facility] Phone Care Team Providers Care Research Contracts Supervisor Name Role Phone Tapan Shirley PA-C Primary Care Provider Unavailabl e Tapan Shirley PA-C Chronic Care Management Unavaila ble Summary Purpose DataExchange Insurance Providers Payer name Policy type / Coverage type Covered democrat ID Effective Begin Date Effective End Date Medicare [place] Medicare Part B [id number] Unknown Unknown Medicaid [place] Medicare Part B [id number] Unknown Unknown Family history Runs in the family Diagnosis Age At Onset No Known Diseases N/A Social History Social History Element Codes Description Effec tive Dates Living arrangements Unknown Shelter 09/03/[address]: 8366882 Non-Smoker / No History of Smoking 09/02/[address]: 329471493 No Alcohol Consum ption 09/02/2020 Allergies, Adverse Reactions, Alerts Substance Reaction Codes Entered Date Inactivated Date Status LISINOPRIL RxNorm: 20424 02/12/2020 No Inactive Da te Active Metformin HCl Unknown 02/12/2020 No Inactive Cristiano e Active Problems Condition Codes Effective Dates Condition St atus Encounter for immunization ICD-10: Z23 ICD-9: V03.89 [...] 02/10/2021 Active Coronary artery disease invo lving [place] coronary artery of [place] heart, angina presence unspecified ICD-10: I25.10 ICD-9: [...] ICD-10: M10 .30 ICD-9: 274.10 09/03/2020 Active group home (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 insulin ICD-10: [...] test strip hydralazine 50 mg tablet RxNorm: 813397 Take 1 Tablet(s) Oral QID 05/05/20 21 022 Inactive isosorbide mononitrate ER 30 mg tablet,extended release 24 hr RxNorm: 061762 Take 1 Tablet(s) Oral QD 05/05/20 No Stop Date Active venlafaxine ER 225 mg tablet,extended release 24 hr RxNorm: 883371 Take 1 Tablet(s) Oral QD 05/05/20 21 021 Inactive venlafaxine ER 225 mg tablet,extended release 24 hr RxNorm: 927551 Take 1 Tablet(s) Oral QD 05/05/20 21 022 Inactive hydralazine 50 mg tablet RxNorm: 376561 Take 1 Tablet(s) Oral QID 05/05/20 21 021 Inactive aspirin 81 mg tablet,delayed release RxNorm: 656136 Take 1 Tablet(s) Oral QD 03/31/20 21 022 Inactive Vitamin D2 1,250 mcg (50,000 unit) capsule RxNorm: 6954365 Take 1 Capsule(s) Oral QW once a week x 12 weeks 03/31/20 21 022 Inactive Zetia 10 mg tablet RxNorm: 227134 Take 1 Tablet(s) Oral QD 03/31/20 022 Inactive Vitamin D2 1,250 mcg (50,000 unit) capsule RxNorm: 6841076 Take 1 Capsule(s) Oral QW once a week 03/31/20 Inactive Zetia 10 mg tablet RxNorm: 328604 Take 1 Tablet(s) Oral QD 03/31/20 Inactive hydralazine 25 mg tablet RxNorm: 227362 Take 1 Tablet(s) Oral QID 03/31/20 021 Inactive hydralazine 25 mg tablet RxNorm: 108794 Take 1 Tablet(s) Oral QID 03/31/20 Inactive hydralazine 10 mg tablet RxNorm: 991086 Take 1 Tablet(s) Oral QID 03/03/20 021 Inactive cephalexin 500 mg tablet RxNorm: 215992 Take 1 Tablet(s) Oral QID 02/27/20 021 Inactive cephalexin 500 mg tablet RxNorm: 333705 Take 1 Tablet(s) Oral QID 02/27/20 021 Inactive lisinopril 40 mg tablet RxNorm: 431057 Take 1 Tablet(s) Oral QD 02/11/20 023 Inactive Eliquis 5 mg tablet RxNorm: 6929475 Take 1 Tablet(s) Oral BID 01/05/20 022 Inactive Eliquis 5 mg tablet RxNorm: 4454425 Take 2 Tablet(s) Oral QD 01/01/20 21 021 Inactive Lyrica 50 mg capsule RxNorm: 003262 Take 1 Capsule(s) Oral QAM every morning 12/24/19 021 Inactive Lyrica 100 mg capsule RxNorm: 257900 Take 1 Capsule(s) Oral QHS every night at bedtime 12/24/19 21 021 Inactive clotrimazole 1 % topical cream RxNorm: 248650 Apply to right foot and toes Topical BID 12/04/19 21 023 Inactive metoprolol succinate ER 200 mg tablet,extended release 24 hr RxNorm: 059502 Take 1 Tablet(s) Oral QD 12/04/19 023 Inactive ciprofloxacin 500 mg tablet RxNorm: 341841 Take 1 Tablet(s) Oral QD 11/30/19 021 Inactive DX ofloxacin otic drops Accu-Chek Guide test strips RxNorm: USE 1 TO CHECK GLUCOSE 4 TIMES DAILY AND NEEDED 11/15/19 21 023 Inactive Blood Glucose Test strips RxNorm: Use 1 Test Strip QID at PRN 11/05/19 21 023 Inactive E11.42 lisinopril 30 mg tablet RxNorm: 866065 Take 1 Tablet(s) Oral QD 10/30/19 021 Inactive lisinopril 20 mg tablet RxNorm: 137864 Take 1 Tablet(s) Oral QD 10/23/19 021 Inactive lisinopril 20 mg tablet RxNorm: 218989 Take 1 Tablet(s) Oral QD 10/23/19 021 Inactive lisinopril 10 mg tablet RxNorm: 061096 Take 1 Tablet(s) Oral QD 10/02/19 021 Inactive icosapent ethyl 1 gram capsule RxNorm: 8343063 Take 2 Capsule(s) (2 gm) Oral BID with meals 09/12/19 022 Inactive Okay to dispense one 2gm tab if you have that available. icosapent ethyl 1 gram capsule RxNorm: 4635336 Take 2 Capsule(s) Oral BID 09/12/19 021 Inactive Okay to dispense one 2gm tab if you have that available. amlodipine 10 mg tablet RxNorm: 778830 Take 1 Tablet(s) Oral QD 09/04/19 022 Inactive aspirin 81 mg tablet,delayed release RxNorm: 797067 Take 1 Tablet(s) Oral QD 09/04/19 21 021 Inactive Levemir FlexTouch U-100 Insulin 100 unit/mL (3 mL) subcutaneous pen RxNorm: 379658 Inject 150 Unit(s) Subcutaneous BID 09/04/19 21 022 Inactive venlafaxine ER 150 mg tablet,extended release 24 hr RxNorm: 222665 Take 1 Tablet(s) Oral QD 09/04/19 21 021 Inactive clotrimazole-betame thasone 1 %-0.05 % topical cream RxNorm: 119415 Apply to rash on red area on left abdomen/chest Topical BID 08/10/19 21 021 Inactive amlodipine 5 mg tablet RxNorm: 506917 Take 1 Tablet(s) Oral QD 07/31/19 21 021 Inactive cephalexin 500 mg tablet RxNorm: 815674 Take 1 Tablet(s) Oral BID BID - Twice Daily 07/31/19 21 021 Inactive Start 08/01/20 pantoprazole 40 mg tablet,delayed release RxNorm: 294500 Take 1 Tablet(s) Oral QAM every morning 07/08/19 022 Inactive senna 8.6 mg tablet RxNorm: 080222 Take 1 Tablet(s) Oral QD 07/08/19 21 022 Inactive pravastatin 80 mg tablet RxNorm: 313038 Take 1 Tablet(s) Oral QHS every night at bedtime 07/08/19 022 Inactive clotrimazole 1 % topical cream RxNorm: 356406 Apply to bilateral groin areas Topical BID 07/08/19 21 022 Inactive carbamazepine 200 mg tablet RxNorm: 651349 Take 1 Tablet(s) Oral BID 07/08/19 21 022 Inactive torsemide 20 mg tablet RxNorm: 575687 Take 1 Tablet(s) Oral QD 07/08/19 21 023 Inactive clopidogrel 75 mg tablet RxNorm: 293630 Take 1 Tablet(s) Oral QD 07/08/19 21 021 Inactive Blood Glucose Test strips RxNorm: Use 1 Test Strip QID at PRN 07/08/19 21 021 Inactive E11.42 Novolog Flexpen U-100 Insulin aspart 100 unit/mL (3 mL) subcutaneous RxNorm: 2941381 Administer per sliding scale Milliliter(s) Subcutaneous TID 151-200: 10 u; 201-250: 20 u; 251-300: 30 u; 301-350: 40 u; 351-400: 50 u. 07/08/19 21 022 Inactive lisinopril 5 mg tablet RxNorm: 924633 Take 1 Tablet(s) Oral QD 07/08/19 21 021 Inactive Novolog Flexpen U-100 Insulin aspart 100 unit/mL (3 mL) subcutaneous RxNorm: 3436164 Inject 85 Unit(s) Subcutaneous TID 07/08/19 Inactive metoprolol succinate ER 200 mg tablet,extended release 24 hr RxNorm: 095398 Take 1 Tablet(s) Oral QD 07/08/19 21 Inactive Vitamin D3 25 mcg (1,000 unit) tablet RxNorm: 489305 Take 1 Tablet(s) Oral QD 07/08/19 Inactive isosorbide dinitrate 30 mg tablet RxNorm: 727981 Take 1 Tablet(s) Oral QD 07/08/19 Inactive Levemir FlexTouch U-100 Insulin 100 unit/mL (3 mL) subcutaneous pen RxNorm: 188286 Inject 140 Unit(s) Subcutaneous BID 07/08/19 Inactive venlafaxine 75 mg tablet RxNorm: 335266 Take 1 Tablet(s) Oral QD 07/08/19 Inactive acetaminophen 500 mg tablet RxNorm: 143674 Take 1 Tablet(s) Oral TID as needed for headache 06/18/19 Inactive acetaminophen 500 mg tablet RxNorm: 052764 Take 1 Tablet(s) Oral TID as needed for headache 06/18/19 021 Inactive Lyrica 100 mg capsule RxNorm: 288080 Take 1 Capsule(s) Oral QHS every night at bedtime 06/11/19 Inactive Lyrica 50 mg capsule RxNorm: 902056 Take 1 Capsule(s) Oral QAM every morning 06/10/19 Inactive hydrocortisone 2.5 % topical cream RxNorm: 993526 Apply to bilateral groin creases Topical BID 05/15/20 20 021 Inactive clotrimazole 1 % topical cream RxNorm: 877714 Apply to bilateral groin areas Topical BID 05/15/20 20 Inactive Lyrica 50 mg capsule RxNorm: 088920 Take 1 Capsule(s) Oral QAM every morning 05/14/20 20 Inactive Lyrica 100 mg capsule RxNorm: 781177 Take 1 Capsule(s) Oral QHS every night [...] Inactive Nystop 100,000 unit/gram topical powder RxNorm: 834003 Apply to abd folds, under breasts and L side of groin Topical BID x 14 days, then BID PRN 04/08/20 20 021 Inactive dx: yeast dermatitis Lyrica 100 mg capsule RxNorm: 820933 Take 1 Capsule(s) Oral QHS every night at bedtime 03/13/20 20 Inactive Lyrica 50 mg capsule RxNorm: 529523 Take 1 Capsule(s) Oral QAM every morning 03/13/20 20 020 Inactive ketoconazole 2 % shampoo RxNorm: 149706 Apply Topical two times a week with showers 03/11/20 20 Inactive cholecalciferol (vitamin D3) 50 mcg (2,000 unit) tablet RxNorm: 739162 Take 1 Tablet(s) Oral QD 10/26/ Inactive Zetia 10 mg tablet RxNorm: 480299 Take 1 Tablet(s) Oral QD 03/07/20 Inactive Zetia 10 mg tablet RxNorm: 011840 Take 1 Tablet(s) Oral QD 03/07/20 Inactive Lyrica 50 mg capsule RxNorm: 014339 Take 1 Capsule(s) Oral QAM every morning 02/15/20 Inactive Lyrica 100 mg capsule RxNorm: 983797 Take 1 Capsule(s) Oral QHS every night at bedtime 02/15/20 Inactive Lyrica 100 mg capsule RxNorm: 230437 Take 1 Capsule(s) Oral QHS every night at bedtime 02/15/20 Inactive Lyrica 50 mg capsule RxNorm: 144015 Take 1 Capsule(s) Oral QAM every morning 02/15/20 Inactive venlafaxine ER 75 mg capsule,extended release 24 hr RxNorm: 896102 Take 3 Capsule(s) Oral QD 06/12/19 Active polyethylene glycol 3350 17 gram/dose oral powder RxNorm: 370809 Take 17=1 capful Gram(s) Oral BID as needed mix with 4-8oz of liquid 06/12/19 Active Levemir FlexTouch U-100 Insulin 100 unit/mL (3 mL) subcutaneous pen RxNorm: 879631 Inject 80 Unit(s) Subcutaneous BID 07/14/19 23 023 Inactive loperamide 2 mg capsule RxNorm: 815678 Take 1 Capsule(s) Oral QID as needed 06/12/19 22 Active Novolog Flexpen U-100 Insulin aspart 100 unit/mL (3 mL) subcutaneous RxNorm: 2977112 Insert 30 Unit(s) Subcutaneous TID with meals [...] IM Moderna Covid-19 Vaccine (Low Dose) CPT-4: 69687 06/18/2021 ADMIN SARSCOV2 50MCG/0.25ML Moderna Booster CPT- 4: 0064A 06/18/2021 COVID-19 VACCINE HOME ADMIN CPT-4: M0201 06/2021 Reason For Visit No Reason For Visit data Plan of Care Planned Activity Notes Codes Status Date Referral: [facility] WPtel: [address] , [address] [id number] [place] Referral Records Received 09/21/2022 Patient Education: Patient M edication Summary Completed 06/18/2021 Patient Education: Influenza Vaccine Completed 06/18/2021 Referral: [facility] WPtel: [address] [id number] [place] Referral Completed 05/28/2021 Referral: General Cardiology Referral Complet ed 01/03/2021 Referral: General Psychologist Referral Close d Instructions Comment Date Leonid is a?? Male being seen living at [facility]. Initial BPS visit 01/2020. PMHx including DMII, CAD w/ 5 stents, Depression, Seizure Disorder and CKD stage 3. He moved into [facility] in 12/2019 but after a hospitalization 05/2021 he moved to the [facility] to have closer nursing attention.??Sister Jyotsna involved in his care cell# [phone]??Guardian: Don (tapan met in person 09/01/21), now has Lexii (same group as don)Lab Schedule: * 10/06/2022
--- OUTSIDE RECORDS SUMMARY | 2022-11-09 23:21 | XMS_ITS | CCD ---
Author Name Tapan Shirley PA-C Address [address] [facility] [address] [place] [address] Phone Organization [facility] Phone Care Team Providers Care Yarding Engineer Name Role Phone Tapan Shirley PA-C Primary Care Provider Unavailabl e Tapan Shirley PA-C Chronic Care Management Unavaila ble Summary Purpose DataExchange Insurance Providers Payer name Policy type / Coverage type Covered constitution party ID Effective Begin Date Effective End Date Medicare [place] Medicare Part B [id number] Unknown Unknown [place] Medicare Part B [id number] Unknown Unknown Family history Runs in the family Diagnosis Age At Onset No Known Diseases N/A Social History Social History Element Codes Description Effec tive Dates Living arrangements Unknown Correction 09/03/[address]: 3401023 Non-Smoker / No History of Smoking 09/02/[address]: 452588875 No Alcohol Consum ption 09/02/2020 Allergies, Adverse Reactions, Alerts Substance Reaction Codes Entered Date Inactivated Date Status LISINOPRIL RxNorm: 14181 02/12/2020 No Inactive Da te Active Metformin [...] 08/04/2021 Active Coronary artery disease invo lving [place] coronary artery of [place] heart, angina presence unspecified ICD-10: I25.10 ICD-9: [...] ICD-10: M10 .30 ICD-9: 274.10 09/03/2020 Active halfway (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 insulin ICD-10: Z79.4 09/03 [...] 100 unit/mL (3 mL) subcutaneous pen RxNorm: 175802 Inject 86 Unit(s) Subcutaneous BID 08/05/19 22 022 Inactive d/c 83units BID Lyrica 100 mg capsule RxNorm: 226816 Take 1 Capsule(s) Oral QHS every night at bedtime Take 1 capsule by mouth once daily at bedtime 02/28/ 022 Inactive Lyrica 50 mg capsule RxNorm: 973015 Take 1 Capsule(s) Oral QAM every morning Take 1 capsule by mouth once daily 07/14/19 Inactive Levemir FlexTouch U-100 Insulin 100 unit/mL (3 mL) subcutaneous pen RxNorm: 397134 Inject 83 Unit(s) Subcutaneous BID 07/08/19 22 [...] test strip hydralazine 50 mg tablet RxNorm: 842769 Take 1 Tablet(s) Oral QID 05/05/20 022 Inactive isosorbide mononitrate ER 30 mg tablet,extended release 24 hr RxNorm: 378689 Take 1 Tablet(s) Oral QD 05/05/20 No Stop Date Active venlafaxine ER 225 mg tablet,extended release 24 hr RxNorm: 384354 Take 1 Tablet(s) Oral QD 05/05/20 Inactive venlafaxine ER 225 mg tablet,extended release 24 hr RxNorm: 997745 Take 1 Tablet(s) Oral QD 05/05/20 022 Inactive hydralazine 50 mg tablet RxNorm: 275201 Take 1 Tablet(s) Oral QID 05/05/20 Inactive aspirin 81 mg tablet,delayed release RxNorm: 157284 Take 1 Tablet(s) Oral QD 03/31/20 Inactive Vitamin D2 1,250 mcg (50,000 unit) capsule RxNorm: 1610399 Take 1 Capsule(s) Oral QW once a week x 12 weeks 03/31/20 Inactive Zetia 10 mg tablet RxNorm: 861549 Take 1 Tablet(s) Oral QD 03/31/20 Inactive Vitamin D2 1,250 mcg (50,000 unit) capsule RxNorm: 0222759 Take 1 Capsule(s) Oral QW once a week 03/31/20 Inactive Zetia 10 mg tablet RxNorm: 831337 Take 1 Tablet(s) Oral QD 03/31/20 Inactive hydralazine 25 mg tablet RxNorm: 857827 Take 1 Tablet(s) Oral QID 03/31/20 Inactive hydralazine 25 mg tablet RxNorm: 499916 Take 1 Tablet(s) Oral QID 03/31/20 Inactive hydralazine 10 mg tablet RxNorm: 862461 Take 1 Tablet(s) Oral QID 03/03/20 021 Inactive cephalexin 500 mg tablet RxNorm: 397073 Take 1 Tablet(s) Oral QID 02/27/20 021 Inactive cephalexin 500 mg tablet RxNorm: 073910 Take 1 Tablet(s) Oral QID 02/27/20 021 Inactive lisinopril 40 mg tablet RxNorm: 081775 Take 1 Tablet(s) Oral QD 02/11/20 023 Inactive Eliquis 5 mg tablet RxNorm: 5178304 Take 1 Tablet(s) Oral BID 01/05/20 21 022 Inactive Eliquis 5 mg tablet RxNorm: 9991531 Take 2 Tablet(s) Oral QD 01/01/20 21 021 Inactive Lyrica 50 mg capsule RxNorm: 424153 Take 1 Capsule(s) Oral QAM every morning 12/24/19 021 Inactive Lyrica 100 mg capsule RxNorm: 217751 Take 1 Capsule(s) Oral QHS every night at bedtime 12/24/19 021 Inactive clotrimazole 1 % topical cream RxNorm: 948734 Apply to right foot and toes Topical BID 12/04/19 21 023 Inactive metoprolol succinate ER 200 mg tablet,extended release 24 hr RxNorm: 142613 Take 1 Tablet(s) Oral QD 12/04/19 023 Inactive ciprofloxacin 500 mg tablet RxNorm: 715753 Take 1 Tablet(s) Oral QD 11/30/19 021 Inactive DX ofloxacin otic drops Accu-Chek Guide test strips RxNorm: USE 1 TO CHECK GLUCOSE 4 TIMES DAILY AND NEEDED 11/15/19 21 023 Inactive Blood Glucose Test strips RxNorm: Use 1 Test Strip QID at PRN 11/05/19 023 Inactive E11.42 lisinopril 30 mg tablet RxNorm: 430361 Take 1 Tablet(s) Oral QD 10/30/19 021 Inactive lisinopril 20 mg tablet RxNorm: 632659 Take 1 Tablet(s) Oral QD 10/23/19 021 Inactive lisinopril 20 mg tablet RxNorm: 515967 Take 1 Tablet(s) Oral QD 10/23/19 21 021 Inactive lisinopril 10 mg tablet RxNorm: 110684 Take 1 Tablet(s) Oral QD 10/02/19 21 Inactive icosapent ethyl 1 gram capsule RxNorm: 2000641 Take 2 Capsule(s) (2 gm) Oral BID with meals 09/12/19 Inactive Okay to dispense one 2gm tab if you have that available. icosapent ethyl 1 gram capsule RxNorm: 5692493 Take 2 Capsule(s) Oral BID 09/12/19 Inactive Okay to dispense one 2gm tab if you have that available. amlodipine 10 mg tablet RxNorm: 144741 Take 1 Tablet(s) Oral QD 09/04/19 Inactive aspirin 81 mg tablet,delayed release RxNorm: 139352 Take 1 Tablet(s) Oral QD 09/04/19 021 Inactive Levemir FlexTouch U-100 Insulin 100 unit/mL (3 mL) subcutaneous pen RxNorm: 134215 Inject 150 Unit(s) Subcutaneous BID 09/04/19 022 Inactive venlafaxine ER 150 mg tablet,extended release 24 hr RxNorm: 806139 Take 1 Tablet(s) Oral QD 09/04/19 Inactive clotrimazole-betame thasone 1 %-0.05 % topical cream RxNorm: 397982 Apply to rash on red area on left abdomen/chest Topical BID 08/10/19 Inactive amlodipine 5 mg tablet RxNorm: 685304 Take 1 Tablet(s) Oral QD 07/31/19 Inactive cephalexin 500 mg tablet RxNorm: 766850 Take 1 Tablet(s) Oral BID BID - Twice Daily 07/31/19 021 Inactive Start 08/01/20 pantoprazole 40 mg tablet,delayed release RxNorm: 421392 Take 1 Tablet(s) Oral QAM every morning 07/08/19 022 Inactive senna 8.6 mg tablet RxNorm: 470605 Take 1 Tablet(s) Oral QD 07/08/19 022 Inactive pravastatin 80 mg tablet RxNorm: 345462 Take 1 Tablet(s) Oral QHS every night at bedtime 07/08/19 21 022 Inactive clotrimazole 1 % topical cream RxNorm: 659395 Apply to bilateral groin areas Topical BID 07/08/19 21 022 Inactive carbamazepine 200 mg tablet RxNorm: 358497 Take 1 Tablet(s) Oral BID 07/08/19 21 022 Inactive torsemide 20 mg tablet RxNorm: 909308 Take 1 Tablet(s) Oral QD 07/08/19 21 023 Inactive clopidogrel 75 mg tablet RxNorm: 484738 Take 1 Tablet(s) Oral QD 07/08/19 021 Inactive Blood Glucose Test strips RxNorm: Use 1 Test Strip QID at PRN 07/08/19 21 Inactive E11.42 Novolog Flexpen U-100 Insulin aspart 100 unit/mL (3 mL) subcutaneous RxNorm: 1804432 Administer per sliding scale Milliliter(s) Subcutaneous TID 151-200: 10 u; 201-250: 20 u; 251-300: 30 u; 301-350: 40 u; 351-400: 50 u. 07/08/19 022 Inactive lisinopril 5 mg tablet RxNorm: 060737 Take 1 Tablet(s) Oral QD 07/08/19 021 Inactive Novolog Flexpen U-100 Insulin aspart 100 unit/mL (3 mL) subcutaneous RxNorm: 0806646 Inject 85 Unit(s) Subcutaneous TID 07/08/19 022 Inactive metoprolol succinate ER 200 mg tablet,extended release 24 hr RxNorm: 278815 Take 1 Tablet(s) Oral QD 07/08/19 21 021 Inactive Vitamin D3 25 mcg (1,000 unit) tablet RxNorm: 529260 Take 1 Tablet(s) Oral QD 07/08/19 21 021 Inactive isosorbide dinitrate 30 mg tablet RxNorm: 765864 Take 1 Tablet(s) Oral QD 07/08/19 21 021 Inactive Levemir FlexTouch U-100 Insulin 100 unit/mL (3 mL) subcutaneous pen RxNorm: 412823 Inject 140 Unit(s) Subcutaneous BID 07/08/19 21 Inactive venlafaxine 75 mg tablet RxNorm: 364237 Take 1 Tablet(s) Oral QD 07/08/19 21 Inactive acetaminophen 500 mg tablet RxNorm: 097307 Take 1 Tablet(s) Oral TID as needed for headache 06/18/19 21 Inactive acetaminophen 500 mg tablet RxNorm: 752170 Take 1 Tablet(s) Oral TID as needed for headache 06/18/19 21 Inactive Lyrica 100 mg capsule RxNorm: 817019 Take 1 Capsule(s) Oral QHS every night at bedtime 06/11/19 21 Inactive Lyrica 50 mg capsule RxNorm: 368943 Take 1 Capsule(s) Oral QAM every morning 06/10/19 21 Inactive hydrocortisone 2.5 % topical cream RxNorm: 917061 Apply to bilateral groin creases Topical BID 05/15/20 20 021 Inactive clotrimazole 1 % topical cream RxNorm: 925775 Apply to bilateral groin areas Topical BID 05/15/20 20 021 Inactive Lyrica 50 mg capsule RxNorm: 087842 Take 1 Capsule(s) Oral QAM every morning 05/14/20 20 020 Inactive Lyrica 100 mg capsule RxNorm: 740598 Take 1 Capsule(s) Oral QHS every night [...] Inactive Nystop 100,000 unit/gram topical powder RxNorm: 965043 Apply to abd folds, under breasts and L side of groin Topical BID x 14 days, then BID PRN 04/08/20 20 Inactive dx: yeast dermatitis Lyrica 100 mg capsule RxNorm: 759316 Take 1 Capsule(s) Oral QHS every night at bedtime 03/13/20 20 Inactive Lyrica 50 mg capsule RxNorm: 975258 Take 1 Capsule(s) Oral QAM every morning 03/13/20 20 Inactive ketoconazole 2 % shampoo RxNorm: 665358 Apply Topical two times a week with showers 03/11/20 20 Inactive cholecalciferol (vitamin D3) 50 mcg (2,000 unit) tablet RxNorm: 782395 Take 1 Tablet(s) Oral QD 03/11/20 20 Inactive Zetia 10 mg tablet RxNorm: 033170 Take 1 Tablet(s) Oral QD 03/07/20 20 Inactive Zetia 10 mg tablet RxNorm: 400935 Take 1 Tablet(s) Oral QD 03/07/20 20 Inactive Lyrica 50 mg capsule RxNorm: 180631 Take 1 Capsule(s) Oral QAM every morning 02/15/20 20 Inactive Lyrica 100 mg capsule RxNorm: 180053 Take 1 Capsule(s) Oral QHS every night at bedtime 02/15/20 20 Inactive Lyrica 100 mg capsule RxNorm: 662016 Take 1 Capsule(s) Oral QHS every night at bedtime 02/15/20 20 Inactive Lyrica 50 mg capsule RxNorm: 824054 Take 1 Capsule(s) Oral QAM every morning 02/15/20 20 Inactive venlafaxine ER 75 mg capsule,extended release 24 hr RxNorm: 182284 Take 3 Capsule(s) Oral QD 06/12/19 Active polyethylene glycol 3350 17 gram/dose oral powder RxNorm: 257197 Take 17=1 capful Gram(s) Oral BID as needed mix with 4-8oz of liquid 06/12/19 Active Levemir FlexTouch U-100 Insulin 100 unit/mL (3 mL) subcutaneous pen RxNorm: 808975 Inject 80 Unit(s) Subcutaneous BID 07/14/19 23 023 Inactive loperamide 2 mg capsule RxNorm: 775413 Take 1 Capsule(s) Oral QID as needed 06/12/19 22 Active Novolog Flexpen U-100 Insulin aspart 100 unit/mL (3 mL) subcutaneous RxNorm: 2999827 Insert 30 Unit(s) Subcutaneous TID with meals [...] Encounter Performer Location Location Address Codes Date (05305) DOMICIL VISIT EST PAT Diagnosis: Stage 2 chronic 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[ICD10: E11.22] Diagnosis: Hyperlipidemia associated with type 2 diabetes mellitus[ICD10: E11.69] Diagnosis: Hypertension associated with diabetes[ICD10: E11.59] Diagnosis: Type 2 diabetes mellitus with diabetic polyneuropathy, with long-term current use of insulin[ICD10: E11.42] Diagnosis: Pain of right heel[ICD10: M79.671] Diagnosis: Muscular pain[ICD10: M79.10] Tapan Shirley [facility] [address] [place] [address] CPT-4: 77136 08/04/2021 Plan of Care Planned Activity Notes Codes Status Date Referral: [facility] WPtel: [address], [address] [id number] [place] Referral Records Received 09/21/2022 Patient Education: Patient M edication Summary Completed 08/04/2021 Patient Education: Influenza Vaccine Completed 08/04/2021 Referral: [facility] WPtel: [address] [id number] [place] Referral Completed 05/28/2021 Referral: General Cardiology Referral Complet ed 01/03/2021 Referral: General Psychologist Referral Close d Instructions Comment Date Leonid is a?? Male being seen living at [facility]. Initial BPS visit 01/2020. PMHx including DMII, CAD w/ 5 stents, Depression, Seizure Disorder and CKD stage 3. He moved into [facility] in 12/2019 but after a hospitalization 05/2021 he moved to the [facility] to have closer nursing attention.??Sister Jyotsna involved in his care cell# [phone]??Guardian: Don (tapan met in person 09/01/21), now [...] supportive shoe and massaging foot as tolerated.?? . 08/04/2021
--- OUTSIDE RECORDS SUMMARY | 2022-11-09 23:21 | XMS_ITS | CCD ---
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 Reader Name Role Phone Tapan Shirley PA-C Primary Care Provider Unavailabl e Tapan Shirley PA-C Chronic Care Management Unavaila ble Summary Purpose DataExchange Insurance Providers Payer name Policy type / Coverage type Covered republican ID Effective Begin Date Effective End Date [place] [id number] [place] [id number] Unknown Unknown Family history Runs in the family Diagnosis Age At Onset No Known Diseases N/A Social History Social History Element Codes Description Effec tive Dates Living arrangements Unknown [facility] 09/03/[address]: 3050911 Non-Smoker / No History of Smoking 09/02/[address]: 071635114 No Alcohol Consum ption 09/02/2020 Allergies, Adverse Reactions, Alerts Substance Reaction Codes Entered Date Inactivated Date Status LISINOPRIL RxNorm: 75711 02/12/2020 No Inactive Da te Active Metformin [...] 08/04/2021 Active Coronary artery disease invo lving lummi [...] ICD-10: M10 .30 ICD-9: 274.10 09/03/2020 Active residential (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 insulin [...] Fill Instructions Lyrica 100 mg capsule RxNorm: 575851 Take 1 Capsule(s) Oral QHS every night at bedtime Take 1 capsule by mouth once daily at bedtime 08/16/19 22 022 Inactive Lyrica 50 mg capsule RxNorm: 263400 Take 1 Capsule(s) Oral QAM every morning Take 1 capsule by mouth once daily 08/16/19 22 022 Inactive Levemir FlexTouch U-100 Insulin 100 unit/mL (3 mL) subcutaneous pen RxNorm: 252113 Inject 86 Unit(s) Subcutaneous BID 08/05/19 22 022 Inactive d/c 83units BID Lyrica 100 mg capsule RxNorm: 722693 Take 1 Capsule(s) Oral QHS every night at bedtime Take 1 capsule by mouth once daily at bedtime 07/14/19 22 Inactive Lyrica 50 mg capsule RxNorm: 273892 Take 1 Capsule(s) Oral QAM every morning Take 1 capsule by mouth once daily 07/14/19 22 Inactive Levemir FlexTouch U-100 Insulin 100 unit/mL (3 mL) subcutaneous pen RxNorm: 780079 Inject 83 Unit(s) Subcutaneous BID 07/08/19 22 [...] test strip hydralazine 50 mg tablet RxNorm: 061862 Take 1 Tablet(s) Oral QID 05/05/20 Inactive isosorbide mononitrate ER 30 mg tablet,extended release 24 hr RxNorm: 565388 Take 1 Tablet(s) Oral QD 05/05/20 No Stop Date Active venlafaxine ER 225 mg tablet,extended release 24 hr RxNorm: 837976 Take 1 Tablet(s) Oral QD 05/05/20 Inactive venlafaxine ER 225 mg tablet,extended release 24 hr RxNorm: 032606 Take 1 Tablet(s) Oral QD 05/05/20 Inactive hydralazine 50 mg tablet RxNorm: 955923 Take 1 Tablet(s) Oral QID 05/05/20 Inactive aspirin 81 mg tablet,delayed release RxNorm: 418863 Take 1 Tablet(s) Oral QD 03/31/20 Inactive Vitamin D2 1,250 mcg (50,000 unit) capsule RxNorm: 2462685 Take 1 Capsule(s) Oral QW once a week x 12 weeks 03/31/20 Inactive Zetia 10 mg tablet RxNorm: 261769 Take 1 Tablet(s) Oral QD 03/31/20 Inactive Vitamin D2 1,250 mcg (50,000 unit) capsule RxNorm: 1194111 Take 1 Capsule(s) Oral QW once a week 03/31/20 Inactive Zetia 10 mg tablet RxNorm: 367844 Take 1 Tablet(s) Oral QD 03/31/20 Inactive hydralazine 25 mg tablet RxNorm: 024692 Take 1 Tablet(s) Oral QID 03/31/20 Inactive hydralazine 25 mg tablet RxNorm: 789951 Take 1 Tablet(s) Oral QID 03/31/20 Inactive hydralazine 10 mg tablet RxNorm: 639137 Take 1 Tablet(s) Oral QID 03/03/20 21 021 Inactive cephalexin 500 mg tablet RxNorm: 375401 Take 1 Tablet(s) Oral QID 02/27/20 021 Inactive cephalexin 500 mg tablet RxNorm: 060314 Take 1 Tablet(s) Oral QID 02/27/20 021 Inactive lisinopril 40 mg tablet RxNorm: 999636 Take 1 Tablet(s) Oral QD 02/11/20 023 Inactive Eliquis 5 mg tablet RxNorm: 4627905 Take 1 Tablet(s) Oral BID 01/05/20 21 022 Inactive Eliquis 5 mg tablet RxNorm: 6524966 Take 2 Tablet(s) Oral QD 01/01/20 021 Inactive Lyrica 50 mg capsule RxNorm: 656092 Take 1 Capsule(s) Oral QAM every morning 12/24/19 021 Inactive Lyrica 100 mg capsule RxNorm: 535170 Take 1 Capsule(s) Oral QHS every night at bedtime 12/24/19 021 Inactive clotrimazole 1 % topical cream RxNorm: 069669 Apply to right foot and toes Topical BID 12/04/19 21 023 Inactive metoprolol succinate ER 200 mg tablet,extended release 24 hr RxNorm: 540914 Take 1 Tablet(s) Oral QD 12/04/19 023 Inactive ciprofloxacin 500 mg tablet RxNorm: 599175 Take 1 Tablet(s) Oral QD 11/30/19 021 Inactive DX ofloxacin otic drops Accu-Chek Guide test strips RxNorm: USE 1 TO CHECK GLUCOSE 4 TIMES DAILY AND NEEDED 11/15/19 21 023 Inactive Blood Glucose Test strips RxNorm: Use 1 Test Strip QID at PRN 11/05/19 21 023 Inactive E11.42 lisinopril 30 mg tablet RxNorm: 166089 Take 1 Tablet(s) Oral QD 10/30/19 21 021 Inactive lisinopril 20 mg tablet RxNorm: 712535 Take 1 Tablet(s) Oral QD 10/23/19 21 021 Inactive lisinopril 20 mg tablet RxNorm: 723415 Take 1 Tablet(s) Oral QD 10/23/19 21 021 Inactive lisinopril 10 mg tablet RxNorm: 129631 Take 1 Tablet(s) Oral QD 10/02/19 21 021 Inactive icosapent ethyl 1 gram capsule RxNorm: 1320197 Take 2 Capsule(s) (2 gm) Oral BID with meals 09/12/19 022 Inactive Okay to dispense one 2gm tab if you have that available. icosapent ethyl 1 gram capsule RxNorm: 9745560 Take 2 Capsule(s) Oral BID 09/12/19 021 Inactive Okay to dispense one 2gm tab if you have that available. amlodipine 10 mg tablet RxNorm: 510735 Take 1 Tablet(s) Oral QD 09/04/19 022 Inactive aspirin 81 mg tablet,delayed release RxNorm: 944127 Take 1 Tablet(s) Oral QD 09/04/19 21 021 Inactive Levemir FlexTouch U-100 Insulin 100 unit/mL (3 mL) subcutaneous pen RxNorm: 472912 Inject 150 Unit(s) Subcutaneous BID 09/04/19 21 022 Inactive venlafaxine ER 150 mg tablet,extended release 24 hr RxNorm: 820840 Take 1 Tablet(s) Oral QD 09/04/19 021 Inactive clotrimazole-betame thasone 1 %-0.05 % topical cream RxNorm: 408682 Apply to rash on red area on left abdomen/chest Topical BID 08/10/19 21 021 Inactive amlodipine 5 mg tablet RxNorm: 216504 Take 1 Tablet(s) Oral QD 07/31/19 21 021 Inactive cephalexin 500 mg tablet RxNorm: 538653 Take 1 Tablet(s) Oral BID BID - Twice Daily 07/31/19 21 021 Inactive Start 08/01/20 pantoprazole 40 mg tablet,delayed release RxNorm: 282710 Take 1 Tablet(s) Oral QAM every morning 02 022 Inactive senna 8.6 mg tablet RxNorm: 709814 Take 1 Tablet(s) Oral QD 07/08/19 022 Inactive pravastatin 80 mg tablet RxNorm: 954197 Take 1 Tablet(s) Oral QHS every night at bedtime 07/08/19 022 Inactive clotrimazole 1 % topical cream RxNorm: 593323 Apply to bilateral groin areas Topical BID 07/08/19 21 Inactive carbamazepine 200 mg tablet RxNorm: 500900 Take 1 Tablet(s) Oral BID 07/08/19 022 Inactive torsemide 20 mg tablet RxNorm: 387090 Take 1 Tablet(s) Oral QD 07/08/19 023 Inactive clopidogrel 75 mg tablet RxNorm: 522029 Take 1 Tablet(s) Oral QD 07/08/19 021 Inactive Blood Glucose Test strips RxNorm: Use 1 Test Strip QID at PRN 07/08/19 Inactive E11.42 Novolog Flexpen U-100 Insulin aspart 100 unit/mL (3 mL) subcutaneous RxNorm: 8029867 Administer per sliding scale Milliliter(s) Subcutaneous TID 151-200: 10 u; 201-250: 20 u; 251-300: 30 u; 301-350: 40 u; 351-400: 50 u. 07/08/19 Inactive lisinopril 5 mg tablet RxNorm: 193846 Take 1 Tablet(s) Oral QD 07/08/19 Inactive Novolog Flexpen U-100 Insulin aspart 100 unit/mL (3 mL) subcutaneous RxNorm: 2155790 Inject 85 Unit(s) Subcutaneous TID 07/08/19 022 Inactive metoprolol succinate ER 200 mg tablet,extended release 24 hr RxNorm: 956974 Take 1 Tablet(s) Oral QD 07/08/19 21 021 Inactive Vitamin D3 25 mcg (1,000 unit) tablet RxNorm: 243363 Take 1 Tablet(s) Oral QD 07/08/19 21 021 Inactive isosorbide dinitrate 30 mg tablet RxNorm: 074267 Take 1 Tablet(s) Oral QD 07/08/19 21 021 Inactive Levemir FlexTouch U-100 Insulin 100 unit/mL (3 mL) subcutaneous pen RxNorm: 780190 Inject 140 Unit(s) Subcutaneous BID 07/08/19 21 021 Inactive venlafaxine 75 mg tablet RxNorm: 961101 Take 1 Tablet(s) Oral QD 07/08/19 021 Inactive acetaminophen 500 mg tablet RxNorm: 387228 Take 1 Tablet(s) Oral TID as needed for headache 06/18/19 21 Inactive acetaminophen 500 mg tablet RxNorm: 846063 Take 1 Tablet(s) Oral TID as needed for headache 06/18/19 021 Inactive Lyrica 100 mg capsule RxNorm: 879810 Take 1 Capsule(s) Oral QHS every night at bedtime 06/11/19 21 021 Inactive Lyrica 50 mg capsule RxNorm: 734616 Take 1 Capsule(s) Oral QAM every morning 06/10/19 21 021 Inactive hydrocortisone 2.5 % topical cream RxNorm: 666981 Apply to bilateral groin creases Topical BID 05/15/20 20 021 Inactive clotrimazole 1 % topical cream RxNorm: 183269 Apply to bilateral groin areas Topical BID 05/15/20 20 021 Inactive Lyrica 50 mg capsule RxNorm: 222708 Take 1 Capsule(s) Oral QAM every morning 05/14/20 20 020 Inactive Lyrica 100 mg capsule RxNorm: 301691 Take 1 Capsule(s) Oral QHS every night [...] Inactive Nystop 100,000 unit/gram topical powder RxNorm: 700024 Apply to abd folds, under breasts and L side of groin Topical BID x 14 days, then BID PRN 04/08/20 20 021 Inactive dx: yeast dermatitis Lyrica 100 mg capsule RxNorm: 279012 Take 1 Capsule(s) Oral QHS every night at bedtime 03/13/20 20 Inactive Lyrica 50 mg capsule RxNorm: 961738 Take 1 Capsule(s) Oral QAM every morning 03/13/20 Inactive ketoconazole 2 % shampoo RxNorm: 854506 Apply Topical two times a week with showers 03/11/20 20 Inactive cholecalciferol (vitamin D3) 50 mcg (2,000 unit) tablet RxNorm: 286882 Take 1 Tablet(s) Oral QD 03/11/20 20 Inactive Zetia 10 mg tablet RxNorm: 355263 Take 1 Tablet(s) Oral QD 03/07/20 20 021 Inactive Zetia 10 mg tablet RxNorm: 742068 Take 1 Tablet(s) Oral QD 03/07/20 20 Inactive Lyrica 50 mg capsule RxNorm: 695716 Take 1 Capsule(s) Oral QAM every morning 02/15/20 20 Inactive Lyrica 100 mg capsule RxNorm: 243907 Take 1 Capsule(s) Oral QHS every night at bedtime 02/15/20 20 Inactive Lyrica 100 mg capsule RxNorm: 144107 Take 1 Capsule(s) Oral QHS every night at bedtime 02/15/20 20 Inactive Lyrica 50 mg capsule RxNorm: 933273 Take 1 Capsule(s) Oral QAM every morning 02/15/20 20 020 Inactive venlafaxine ER 75 mg capsule,extended release 24 hr RxNorm: 570356 Take 3 Capsule(s) Oral QD 06/12/19 22 Active polyethylene glycol 3350 17 gram/dose oral powder RxNorm: 951679 Take 17=1 capful Gram(s) Oral BID as needed mix with 4-8oz of liquid 06/12/19 Active Levemir FlexTouch U-100 Insulin 100 unit/mL (3 mL) subcutaneous pen RxNorm: 318874 Inject 80 Unit(s) Subcutaneous BID 07/14/19 23 023 Inactive loperamide 2 mg capsule RxNorm: 028779 Take 1 Capsule(s) Oral QID as needed 06/12/19 22 Active Novolog Flexpen U-100 Insulin aspart 100 unit/mL (3 mL) subcutaneous RxNorm: 4150125 Insert 30 Unit(s) Subcutaneous TID with meals [...] Status Date Referral: [facility] WPtel: [id number], [address] [id number] [place] Referral Records Received 09/21/2022 Referral: [facility] WPtel: [address] [id number] [place] Referral Completed 05/28/2021 Referral: General Cardiology [...] [facility].??Sister Jyotsna involved in his care cell# [phone]??Guardian: Don (tapan met in person 09/01/21), now has Lexii (same group as don)Lab Schedule: * 10/06/2022
--- OUTSIDE RECORDS SUMMARY | 2022-11-09 23:22 | XMS_ITS | CCD ---
Author Name Unknown Organization Unknown Care Team Providers Care Weed Burner Name Role Phone Tapan Shirley PA-C Primary Care Provider Unavailabl e Tapan Shirley PA-C Chronic Care Management Unavaila ble Summary Purpose DataExchange Insurance Providers Payer name Policy type / Coverage type Covered green party ID Effective Begin Date Effective End Date [place] B [id number] Unknown Unknown [place] [id number] Unknown Unknown Family history Runs in the family Diagnosis Age At Onset No Known Diseases N/A Social History Social History Element Codes Description Effec tive Dates Living arrangements Unknown Assisted 09/03/[address]: 4012552 Non-Smoker / No History of Smoking 09/02/[address]: 266523523 No Alcohol Consum ption 09/02/2020 Allergies, Adverse Reactions, Alerts Substance Reaction Codes Entered Date Inactivated Date Status LISINOPRIL RxNorm: 70691 02/12/2020 No Inactive Da te Active Metformin [...] 08/04/2021 Active Coronary artery disease invo lving [place] coronary artery of [place] heart, angina presence unspecified ICD-10: I25.10 ICD-9: [...] benzoyl peroxide 10 % topical cleanser RxNorm: 986137 Apply 1 Application Topical QD apply to face, wash rinse and dry once daily (may change to QOD if drying) 08/19/19 022 Inactive (%covered by insurance) #60ml refill 11 dx: acne benzoyl peroxide 10 % topical cleanser RxNorm: 751501 Apply 1 Application Topical QD apply to face, wash rinse and dry once daily (may change to QOD if drying) 08/19/19 22 022 Inactive (%covered by insurance) #60ml refill 11 dx: acne benzoyl peroxide 10 % topical cleanser RxNorm: 742983 Apply 1 Application Topical QD apply to face, wash rinse and dry once daily (may change to QOD if drying) 08/19/19 22 022 Inactive (%covered by insurance) #60ml refill 11 dx: acne Lyrica 50 mg capsule RxNorm: 569972 Take 1 Capsule(s) Oral QAM every morning Take 1 capsule by mouth once daily 08/19/19 22 022 Inactive benzoyl peroxide 10 % topical cleanser RxNorm: 308878 Apply 1 Application Topical QD apply to face, wash rinse and dry once daily (may change to QOD if drying) 08/19/19 22 022 Inactive (%covered by insurance) #60ml refill 11 dx: acne Lyrica 100 mg capsule RxNorm: 704391 Take 1 Capsule(s) Oral QHS every night at bedtime Take 1 capsule by mouth once daily at bedtime 08/19/19 22 022 Inactive Lyrica 100 mg capsule RxNorm: 224709 Take 1 Capsule(s) Oral QHS every night at bedtime Take 1 capsule by mouth once daily at bedtime 08/16/19 22 022 Inactive Lyrica 50 mg capsule RxNorm: 356538 Take 1 Capsule(s) Oral QAM every morning Take 1 capsule by mouth once daily 08/16/19 22 022 Inactive Levemir FlexTouch U-100 Insulin 100 unit/mL (3 mL) subcutaneous pen RxNorm: 120073 Inject 86 Unit(s) Subcutaneous BID 08/05/19 22 022 Inactive d/c 83units BID Lyrica 100 mg capsule RxNorm: 230948 Take 1 Capsule(s) Oral QHS every night at bedtime Take 1 capsule by mouth once daily at bedtime 07/14/19 22 022 Inactive Lyrica 50 mg capsule RxNorm: 959882 Take 1 Capsule(s) Oral QAM every morning Take 1 capsule by mouth once daily 07/14/19 22 022 Inactive Levemir FlexTouch U-100 Insulin 100 unit/mL (3 mL) subcutaneous pen RxNorm: 470683 Inject 83 Unit(s) Subcutaneous BID 02/ 022 Inactive d/c 80units BID Accu-Chek Guide [...] test strip hydralazine 50 mg tablet RxNorm: 771732 Take 1 Tablet(s) Oral QID 05/05/20 21 022 Inactive isosorbide mononitrate ER 30 mg tablet,extended release 24 hr RxNorm: 299840 Take 1 Tablet(s) Oral QD 05/05/20 No Stop Date Active venlafaxine ER 225 mg tablet,extended release 24 hr RxNorm: 392558 Take 1 Tablet(s) Oral QD 05/05/20 21 021 Inactive venlafaxine ER 225 mg tablet,extended release 24 hr RxNorm: 967768 Take 1 Tablet(s) Oral QD 05/05/20 022 Inactive hydralazine 50 mg tablet RxNorm: 025614 Take 1 Tablet(s) Oral QID 05/05/20 21 021 Inactive aspirin 81 mg tablet,delayed release RxNorm: 170837 Take 1 Tablet(s) Oral QD 03/31/20 Inactive Vitamin D2 1,250 mcg (50,000 unit) capsule RxNorm: 7358304 Take 1 Capsule(s) Oral QW once a week x 12 weeks 03/31/20 Inactive Zetia 10 mg tablet RxNorm: 516562 Take 1 Tablet(s) Oral QD 03/31/20 Inactive Vitamin D2 1,250 mcg (50,000 unit) capsule RxNorm: 6215492 Take 1 Capsule(s) Oral QW once a week 03/31/20 Inactive Zetia 10 mg tablet RxNorm: 324145 Take 1 Tablet(s) Oral QD 03/31/20 021 Inactive hydralazine 25 mg tablet RxNorm: 078665 Take 1 Tablet(s) Oral QID 03/31/20 021 Inactive hydralazine 25 mg tablet RxNorm: 563712 Take 1 Tablet(s) Oral QID 03/31/20 021 Inactive hydralazine 10 mg tablet RxNorm: 140645 Take 1 Tablet(s) Oral QID 03/03/20 021 Inactive cephalexin 500 mg tablet RxNorm: 697899 Take 1 Tablet(s) Oral QID 02/27/20 021 Inactive cephalexin 500 mg tablet RxNorm: 567970 Take 1 Tablet(s) Oral QID 02/27/20 021 Inactive lisinopril 40 mg tablet RxNorm: 781322 Take 1 Tablet(s) Oral QD 02/11/20 21 023 Inactive Eliquis 5 mg tablet RxNorm: 3036195 Take 1 Tablet(s) Oral BID 01/05/20 21 022 Inactive Eliquis 5 mg tablet RxNorm: 6415583 Take 2 Tablet(s) Oral QD 01/01/20 21 021 Inactive Lyrica 50 mg capsule RxNorm: 697313 Take 1 Capsule(s) Oral QAM every morning 12/24/19 21 021 Inactive Lyrica 100 mg capsule RxNorm: 047265 Take 1 Capsule(s) Oral QHS every night at bedtime 12/24/19 021 Inactive clotrimazole 1 % topical cream RxNorm: 980706 Apply to right foot and toes Topical BID 12/04/19 21 023 Inactive metoprolol succinate ER 200 mg tablet,extended release 24 hr RxNorm: 861754 Take 1 Tablet(s) Oral QD 12/04/19 21 023 Inactive ciprofloxacin 500 mg tablet RxNorm: 393852 Take 1 Tablet(s) Oral QD 11/30/19 21 021 Inactive DX ofloxacin otic drops Accu-Chek Guide test strips RxNorm: USE 1 TO CHECK GLUCOSE 4 TIMES DAILY AND NEEDED 11/15/19 21 023 Inactive Blood Glucose Test strips RxNorm: Use 1 Test Strip QID at PRN 11/05/19 21 023 Inactive E11.42 lisinopril 30 mg tablet RxNorm: 200954 Take 1 Tablet(s) Oral QD 10/30/19 021 Inactive lisinopril 20 mg tablet RxNorm: 003250 Take 1 Tablet(s) Oral QD 10/23/19 21 021 Inactive lisinopril 20 mg tablet RxNorm: 980360 Take 1 Tablet(s) Oral QD 10/23/19 21 021 Inactive lisinopril 10 mg tablet RxNorm: 559612 Take 1 Tablet(s) Oral QD 10/02/19 21 021 Inactive icosapent ethyl 1 gram capsule RxNorm: 7764791 Take 2 Capsule(s) (2 gm) Oral BID with meals 09/12/19 21 022 Inactive Okay to dispense one 2gm tab if you have that available. icosapent ethyl 1 gram capsule RxNorm: 6964714 Take 2 Capsule(s) Oral BID 09/12/19 21 Inactive Okay to dispense one 2gm tab if you have that available. amlodipine 10 mg tablet RxNorm: 781496 Take 1 Tablet(s) Oral QD 09/04/19 022 Inactive aspirin 81 mg tablet,delayed release RxNorm: 787142 Take 1 Tablet(s) Oral QD 09/04/19 021 Inactive Levemir FlexTouch U-100 Insulin 100 unit/mL (3 mL) subcutaneous pen RxNorm: 145511 Inject 150 Unit(s) Subcutaneous BID 09/04/19 022 Inactive venlafaxine ER 150 mg tablet,extended release 24 hr RxNorm: 598534 Take 1 Tablet(s) Oral QD 09/04/19 021 Inactive clotrimazole-betame thasone 1 %-0.05 % topical cream RxNorm: 434724 Apply to rash on red area on left abdomen/chest Topical BID 08/10/19 21 021 Inactive amlodipine 5 mg tablet RxNorm: 817341 Take 1 Tablet(s) Oral QD 07/31/19 Inactive cephalexin 500 mg tablet RxNorm: 228303 Take 1 Tablet(s) Oral BID BID - Twice Daily 07/31/19 021 Inactive Start 08/01/20 pantoprazole 40 mg tablet,delayed release RxNorm: 537204 Take 1 Tablet(s) Oral QAM every morning 07/08/19 022 Inactive senna 8.6 mg tablet RxNorm: 143326 Take 1 Tablet(s) Oral QD 07/08/19 022 Inactive pravastatin 80 mg tablet RxNorm: 757988 Take 1 Tablet(s) Oral QHS every night at bedtime 07/08/19 21 022 Inactive clotrimazole 1 % topical cream RxNorm: 808884 Apply to bilateral groin areas Topical BID 07/08/19 21 022 Inactive carbamazepine 200 mg tablet RxNorm: 382547 Take 1 Tablet(s) Oral BID 07/08/19 022 Inactive torsemide 20 mg tablet RxNorm: 133532 Take 1 Tablet(s) Oral QD 07/08/19 21 023 Inactive clopidogrel 75 mg tablet RxNorm: 461545 Take 1 Tablet(s) Oral QD 07/08/19 021 Inactive Blood Glucose Test strips RxNorm: Use 1 Test Strip QID at PRN 07/08/19 21 Inactive E11.42 Novolog Flexpen U-100 Insulin aspart 100 unit/mL (3 mL) subcutaneous RxNorm: 8265019 Administer per sliding scale Milliliter(s) Subcutaneous TID 151-200: 10 u; 201-250: 20 u; 251-300: 30 u; 301-350: 40 u; 351-400: 50 u. 07/08/19 022 Inactive lisinopril 5 mg tablet RxNorm: 049552 Take 1 Tablet(s) Oral QD 07/08/19 021 Inactive Novolog Flexpen U-100 Insulin aspart 100 unit/mL (3 mL) subcutaneous RxNorm: 9086265 Inject 85 Unit(s) Subcutaneous TID 07/08/19 Inactive metoprolol succinate ER 200 mg tablet,extended release 24 hr RxNorm: 477792 Take 1 Tablet(s) Oral QD 07/08/19 021 Inactive Vitamin D3 25 mcg (1,000 unit) tablet RxNorm: 601187 Take 1 Tablet(s) Oral QD 07/08/19 021 Inactive isosorbide dinitrate 30 mg tablet RxNorm: 373116 Take 1 Tablet(s) Oral QD 07/08/19 021 Inactive Levemir FlexTouch U-100 Insulin 100 unit/mL (3 mL) subcutaneous pen RxNorm: 117025 Inject 140 Unit(s) Subcutaneous BID 07/08/19 021 Inactive venlafaxine 75 mg tablet RxNorm: 612752 Take 1 Tablet(s) Oral QD 07/08/19 021 Inactive acetaminophen 500 mg tablet RxNorm: 562588 Take 1 Tablet(s) Oral TID as needed for headache 06/18/1903/2 021 Inactive acetaminophen 500 mg tablet RxNorm: 018445 Take 1 Tablet(s) Oral TID as needed for headache 06/18/19 21 021 Inactive Lyrica 100 mg capsule RxNorm: 702904 Take 1 Capsule(s) Oral QHS every night at bedtime 06/11/19 21 021 Inactive Lyrica 50 mg capsule RxNorm: 003905 Take 1 Capsule(s) Oral QAM every morning 06/10/19 21 021 Inactive hydrocortisone 2.5 % topical cream RxNorm: 117135 Apply to bilateral groin creases Topical BID 05/15/20 20 021 Inactive clotrimazole 1 % topical cream RxNorm: 320905 Apply to bilateral groin areas Topical BID 05/15/20 20 021 Inactive Lyrica 50 mg capsule RxNorm: 463856 Take 1 Capsule(s) Oral QAM every morning 05/14/20 20 020 Inactive Lyrica 100 mg capsule RxNorm: 211801 Take 1 Capsule(s) Oral QHS every night [...] Inactive Nystop 100,000 unit/gram topical powder RxNorm: 131541 Apply to abd folds, under breasts and L side of groin Topical BID x 14 days, then BID PRN 04/08/20 Inactive dx: yeast dermatitis Lyrica 100 mg capsule RxNorm: 107220 Take 1 Capsule(s) Oral QHS every night at bedtime 03/13/20 Inactive Lyrica 50 mg capsule RxNorm: 180740 Take 1 Capsule(s) Oral QAM every morning 03/13/20 Inactive ketoconazole 2 % shampoo RxNorm: 142263 Apply Topical two times a week with showers 03/11/20 Inactive cholecalciferol (vitamin D3) 50 mcg (2,000 unit) tablet RxNorm: 883793 Take 1 Tablet(s) Oral QD 03/11/20 Inactive Zetia 10 mg tablet RxNorm: 480172 Take 1 Tablet(s) Oral QD 03/07/20 Inactive Zetia 10 mg tablet RxNorm: 572716 Take 1 Tablet(s) Oral QD 03/07/20 Inactive Lyrica 50 mg capsule RxNorm: 589469 Take 1 Capsule(s) Oral QAM every morning 02/15/20 20 Inactive Lyrica 100 mg capsule RxNorm: 788764 Take 1 Capsule(s) Oral QHS every night at bedtime 02/15/20 Inactive Lyrica 100 mg capsule RxNorm: 291891 Take 1 Capsule(s) Oral QHS every night at bedtime 02/15/20 Inactive Lyrica 50 mg capsule RxNorm: 396466 Take 1 Capsule(s) Oral QAM every morning 02/15/20 Inactive venlafaxine ER 75 mg capsule,extended release 24 hr RxNorm: 913266 Take 3 Capsule(s) Oral QD 06/12/19 Active polyethylene glycol 3350 17 gram/dose oral powder RxNorm: 691830 Take 17=1 capful Gram(s) Oral BID as needed mix with 4-8oz of liquid 06/12/19 Active Levemir FlexTouch U-100 Insulin 100 unit/mL (3 mL) subcutaneous pen RxNorm: 671968 Inject 80 Unit(s) Subcutaneous BID 07/14/19 23 023 Inactive loperamide 2 mg capsule RxNorm: 634974 Take 1 Capsule(s) Oral QID as needed 06/12/19 22 Active Novolog Flexpen U-100 Insulin aspart 100 unit/mL (3 mL) subcutaneous RxNorm: 8733646 Insert 30 Unit(s) Subcutaneous TID with meals [...] Referral: [facility] WPtel: [address], [address] [id number] [place] Referral Records Received 09/21/2022 Referral: [facility] [place]: [address] [id number] [place] Referral Completed 05/28/2021 Referral: General Cardiology Referral Complet ed 01/03/2021 Referral: General Psychologist Referral Close d Instructions Comment Date Lenoid is a?? Male being seen living at [facility]. Initial [facility] visit 01/2020. PMHx including DMII, CAD w/ 5 stents, Depression, Seizure Disorder and CKD stage 3. He moved into [facility] in 12/2019 but after a hospitalization 05/2021 he moved to the the medical center to have closer nursing attention.??Sister Jyotsna involved in his care cell# [phone]??Guardian: Don (tapan met in person 09/01/21), now has Lexii (same group as don)Lab Schedule: * 10/06/2022
--- OUTSIDE RECORDS SUMMARY | 2022-11-09 23:22 | XMS_ITS | CCD ---
Author Name Unknown Organization Unknown Care Team Providers Care Transportation Aide Name Role Phone Tapan Shirley PA-C Primary Care Provider Unavailabl e Tapan Shirley PA-C Chronic Care Management Unavaila ble Summary Purpose DataExchange Insurance Providers Payer name Policy type / Coverage type Covered constitution party ID Effective Begin Date Effective End Date [place] [id number] Unknown [place] [id number] Unknown Unknown Family history Runs in the family Diagnosis Age At Onset No Known Diseases N/A Social History Social History Element Codes Description Effec tive Dates Living arrangements Unknown Half-Way 09/03/[address]: 4390848 Non-Smoker / No History of Smoking 09/02/[address]: 079892577 No Alcohol Consum ption 09/02/2020 Allergies, Adverse Reactions, Alerts Substance Reaction Codes Entered Date Inactivated Date Status LISINOPRIL RxNorm: 85081 02/12/2020 No Inactive Da te Active Metformin [...] 08/04/2021 Active Coronary artery disease invo lving [place] coronary artery of [place] heart, angina presence unspecified ICD-10: I25.10 ICD-9: [...] ICD-10: M10 .30 ICD-9: 274.10 09/03/2020 Active [facility] (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 insulin ICD-10: Z79.4 09/03 [...] benzoyl peroxide 10 % topical cleanser RxNorm: 120318 Apply 1 Application Topical QD apply to face, wash rinse and dry once daily (may change to QOD if drying) 08/19/19 022 Inactive (%covered by insurance) #60ml refill 11 dx: acne benzoyl peroxide 10 % topical cleanser RxNorm: 795483 Apply 1 Application Topical QD apply to face, wash rinse and dry once daily (may change to QOD if drying) 08/19/19 22 022 Inactive (%covered by insurance) #60ml refill 11 dx: acne benzoyl peroxide 10 % topical cleanser RxNorm: 100080 Apply 1 Application Topical QD apply to face, wash rinse and dry once daily (may change to QOD if drying) 08/19/19 22 022 Inactive (%covered by insurance) #60ml refill 11 dx: acne Lyrica 50 mg capsule RxNorm: 768015 Take 1 Capsule(s) Oral QAM every morning Take 1 capsule by mouth once daily 08/19/19 22 022 Inactive benzoyl peroxide 10 % topical cleanser RxNorm: 716465 Apply 1 Application Topical QD apply to face, wash rinse and dry once daily (may change to QOD if drying) 08/19/19 22 022 Inactive (%covered by insurance) #60ml refill 11 dx: acne Lyrica 100 mg capsule RxNorm: 520744 Take 1 Capsule(s) Oral QHS every night at bedtime Take 1 capsule by mouth once daily at bedtime 08/19/19 22 022 Inactive Lyrica 100 mg capsule RxNorm: 265846 Take 1 Capsule(s) Oral QHS every night at bedtime Take 1 capsule by mouth once daily at bedtime 08/16/19 22 022 Inactive Lyrica 50 mg capsule RxNorm: 340642 Take 1 Capsule(s) Oral QAM every morning Take 1 capsule by mouth once daily 08/16/19 22 022 Inactive Levemir FlexTouch U-100 Insulin 100 unit/mL (3 mL) subcutaneous pen RxNorm: 402066 Inject 86 Unit(s) Subcutaneous BID 08/05/19 22 022 Inactive d/c 83units BID Lyrica 100 mg capsule RxNorm: 434507 Take 1 Capsule(s) Oral QHS every night at bedtime Take 1 capsule by mouth once daily at bedtime 07/14/19 22 022 Inactive Lyrica 50 mg capsule RxNorm: 190351 Take 1 Capsule(s) Oral QAM every morning Take 1 capsule by mouth once daily 07/14/19 22 022 Inactive Levemir FlexTouch U-100 Insulin 100 unit/mL (3 mL) subcutaneous pen RxNorm: 641150 Inject 83 Unit(s) Subcutaneous BID 02/ 022 [...] test strip hydralazine 50 mg tablet RxNorm: 411685 Take 1 Tablet(s) Oral QID 05/05/20 21 022 Inactive isosorbide mononitrate ER 30 mg tablet,extended release 24 hr RxNorm: 485445 Take 1 Tablet(s) Oral QD 05/05/20 No Stop Date Active venlafaxine ER 225 mg tablet,extended release 24 hr RxNorm: 384096 Take 1 Tablet(s) Oral QD 05/05/20 21 021 Inactive venlafaxine ER 225 mg tablet,extended release 24 hr RxNorm: 826754 Take 1 Tablet(s) Oral QD 05/05/20 022 Inactive hydralazine 50 mg tablet RxNorm: 101109 Take 1 Tablet(s) Oral QID 05/05/20 21 021 Inactive aspirin 81 mg tablet,delayed release RxNorm: 085012 Take 1 Tablet(s) Oral QD 03/31/20 Inactive Vitamin D2 1,250 mcg (50,000 unit) capsule RxNorm: 8954189 Take 1 Capsule(s) Oral QW once a week x 12 weeks 03/31/20 Inactive Zetia 10 mg tablet RxNorm: 587360 Take 1 Tablet(s) Oral QD 03/31/20 Inactive Vitamin D2 1,250 mcg (50,000 unit) capsule RxNorm: 9999245 Take 1 Capsule(s) Oral QW once a week 03/31/20 Inactive Zetia 10 mg tablet RxNorm: 184671 Take 1 Tablet(s) Oral QD 03/31/20 021 Inactive hydralazine 25 mg tablet RxNorm: 940534 Take 1 Tablet(s) Oral QID 03/31/20 021 Inactive hydralazine 25 mg tablet RxNorm: 120296 Take 1 Tablet(s) Oral QID 03/31/20 021 Inactive hydralazine 10 mg tablet RxNorm: 276311 Take 1 Tablet(s) Oral QID 03/03/20 021 Inactive cephalexin 500 mg tablet RxNorm: 388584 Take 1 Tablet(s) Oral QID 02/27/20 021 Inactive cephalexin 500 mg tablet RxNorm: 384012 Take 1 Tablet(s) Oral QID 02/27/20 021 Inactive lisinopril 40 mg tablet RxNorm: 825674 Take 1 Tablet(s) Oral QD 02/11/20 21 023 Inactive Eliquis 5 mg tablet RxNorm: 8572056 Take 1 Tablet(s) Oral BID 01/05/20 21 022 Inactive Eliquis 5 mg tablet RxNorm: 0635411 Take 2 Tablet(s) Oral QD 01/01/20 21 021 Inactive Lyrica 50 mg capsule RxNorm: 732190 Take 1 Capsule(s) Oral QAM every morning 12/24/19 21 021 Inactive Lyrica 100 mg capsule RxNorm: 805216 Take 1 Capsule(s) Oral QHS every night at bedtime 12/24/19 021 Inactive clotrimazole 1 % topical cream RxNorm: 056732 Apply to right foot and toes Topical BID 12/04/19 21 023 Inactive metoprolol succinate ER 200 mg tablet,extended release 24 hr RxNorm: 465766 Take 1 Tablet(s) Oral QD 12/04/19 21 023 Inactive ciprofloxacin 500 mg tablet RxNorm: 961556 Take 1 Tablet(s) Oral QD 11/30/19 21 021 Inactive DX ofloxacin otic drops Accu-Chek Guide test strips RxNorm: USE 1 TO CHECK GLUCOSE 4 TIMES DAILY AND NEEDED 11/15/19 21 023 Inactive Blood Glucose Test strips RxNorm: Use 1 Test Strip QID at PRN 11/05/19 21 023 Inactive E11.42 lisinopril 30 mg tablet RxNorm: 561754 Take 1 Tablet(s) Oral QD 10/30/19 021 Inactive lisinopril 20 mg tablet RxNorm: 938721 Take 1 Tablet(s) Oral QD 10/23/19 21 021 Inactive lisinopril 20 mg tablet RxNorm: 590518 Take 1 Tablet(s) Oral QD 10/23/19 21 021 Inactive lisinopril 10 mg tablet RxNorm: 427598 Take 1 Tablet(s) Oral QD 10/02/19 21 021 Inactive icosapent ethyl 1 gram capsule RxNorm: 6684917 Take 2 Capsule(s) (2 gm) Oral BID with meals 09/12/19 21 022 Inactive Okay to dispense one 2gm tab if you have that available. icosapent ethyl 1 gram capsule RxNorm: 0313990 Take 2 Capsule(s) Oral BID 09/12/19 21 Inactive Okay to dispense one 2gm tab if you have that available. amlodipine 10 mg tablet RxNorm: 098403 Take 1 Tablet(s) Oral QD 09/04/19 022 Inactive aspirin 81 mg tablet,delayed release RxNorm: 706422 Take 1 Tablet(s) Oral QD 09/04/19 021 Inactive Levemir FlexTouch U-100 Insulin 100 unit/mL (3 mL) subcutaneous pen RxNorm: 357105 Inject 150 Unit(s) Subcutaneous BID 09/04/19 022 Inactive venlafaxine ER 150 mg tablet,extended release 24 hr RxNorm: 516923 Take 1 Tablet(s) Oral QD 09/04/19 021 Inactive clotrimazole-betame thasone 1 %-0.05 % topical cream RxNorm: 041222 Apply to rash on red area on left abdomen/chest Topical BID 08/10/19 21 021 Inactive amlodipine 5 mg tablet RxNorm: 534342 Take 1 Tablet(s) Oral QD 07/31/19 Inactive cephalexin 500 mg tablet RxNorm: 819092 Take 1 Tablet(s) Oral BID BID - Twice Daily 07/31/19 021 Inactive Start 08/01/20 pantoprazole 40 mg tablet,delayed release RxNorm: 888779 Take 1 Tablet(s) Oral QAM every morning 07/08/19 022 Inactive senna 8.6 mg tablet RxNorm: 077782 Take 1 Tablet(s) Oral QD 07/08/19 022 Inactive pravastatin 80 mg tablet RxNorm: 027938 Take 1 Tablet(s) Oral QHS every night at bedtime 07/08/19 21 022 Inactive clotrimazole 1 % topical cream RxNorm: 303585 Apply to bilateral groin areas Topical BID 07/08/19 21 022 Inactive carbamazepine 200 mg tablet RxNorm: 497590 Take 1 Tablet(s) Oral BID 07/08/19 022 Inactive torsemide 20 mg tablet RxNorm: 782921 Take 1 Tablet(s) Oral QD 07/08/19 21 023 Inactive clopidogrel 75 mg tablet RxNorm: 542649 Take 1 Tablet(s) Oral QD 07/08/19 021 Inactive Blood Glucose Test strips RxNorm: Use 1 Test Strip QID at PRN 07/08/19 21 Inactive E11.42 Novolog Flexpen U-100 Insulin aspart 100 unit/mL (3 mL) subcutaneous RxNorm: 3136313 Administer per sliding scale Milliliter(s) Subcutaneous TID 151-200: 10 u; 201-250: 20 u; 251-300: 30 u; 301-350: 40 u; 351-400: 50 u. 07/08/19 022 Inactive lisinopril 5 mg tablet RxNorm: 422324 Take 1 Tablet(s) Oral QD 07/08/19 021 Inactive Novolog Flexpen U-100 Insulin aspart 100 unit/mL (3 mL) subcutaneous RxNorm: 2336861 Inject 85 Unit(s) Subcutaneous TID 07/08/19 Inactive metoprolol succinate ER 200 mg tablet,extended release 24 hr RxNorm: 539168 Take 1 Tablet(s) Oral QD 07/08/19 021 Inactive Vitamin D3 25 mcg (1,000 unit) tablet RxNorm: 202557 Take 1 Tablet(s) Oral QD 07/08/19 021 Inactive isosorbide dinitrate 30 mg tablet RxNorm: 237001 Take 1 Tablet(s) Oral QD 07/08/19 021 Inactive Levemir FlexTouch U-100 Insulin 100 unit/mL (3 mL) subcutaneous pen RxNorm: 401663 Inject 140 Unit(s) Subcutaneous BID 07/08/19 021 Inactive venlafaxine 75 mg tablet RxNorm: 634714 Take 1 Tablet(s) Oral QD 07/08/19 021 Inactive acetaminophen 500 mg tablet RxNorm: 221075 Take 1 Tablet(s) Oral TID as needed for headache 06/18/1903/2 021 Inactive acetaminophen 500 mg tablet RxNorm: 785295 Take 1 Tablet(s) Oral TID as needed for headache 06/18/19 21 021 Inactive Lyrica 100 mg capsule RxNorm: 241138 Take 1 Capsule(s) Oral QHS every night at bedtime 06/11/19 21 021 Inactive Lyrica 50 mg capsule RxNorm: 832935 Take 1 Capsule(s) Oral QAM every morning 06/10/19 21 021 Inactive hydrocortisone 2.5 % topical cream RxNorm: 861194 Apply to bilateral groin creases Topical BID 05/15/20 20 021 Inactive clotrimazole 1 % topical cream RxNorm: 462635 Apply to bilateral groin areas Topical BID 05/15/20 20 021 Inactive Lyrica 50 mg capsule RxNorm: 409145 Take 1 Capsule(s) Oral QAM every morning 05/14/20 20 020 Inactive Lyrica 100 mg capsule RxNorm: 706719 Take 1 Capsule(s) Oral QHS every night [...] Inactive Nystop 100,000 unit/gram topical powder RxNorm: 485085 Apply to abd folds, under breasts and L side of groin Topical BID x 14 days, then BID PRN 04/08/20 Inactive dx: yeast dermatitis Lyrica 100 mg capsule RxNorm: 148121 Take 1 Capsule(s) Oral QHS every night at bedtime 03/13/20 Inactive Lyrica 50 mg capsule RxNorm: 866129 Take 1 Capsule(s) Oral QAM every morning 03/13/20 Inactive ketoconazole 2 % shampoo RxNorm: 841827 Apply Topical two times a week with showers 03/11/20 Inactive cholecalciferol (vitamin D3) 50 mcg (2,000 unit) tablet RxNorm: 448178 Take 1 Tablet(s) Oral QD 03/11/20 Inactive Zetia 10 mg tablet RxNorm: 178811 Take 1 Tablet(s) Oral QD 03/07/20 Inactive Zetia 10 mg tablet RxNorm: 006254 Take 1 Tablet(s) Oral QD 03/07/20 Inactive Lyrica 50 mg capsule RxNorm: 365987 Take 1 Capsule(s) Oral QAM every morning 02/15/20 20 Inactive Lyrica 100 mg capsule RxNorm: 049797 Take 1 Capsule(s) Oral QHS every night at bedtime 02/15/20 Inactive Lyrica 100 mg capsule RxNorm: 826582 Take 1 Capsule(s) Oral QHS every night at bedtime 02/15/20 Inactive Lyrica 50 mg capsule RxNorm: 770904 Take 1 Capsule(s) Oral QAM every morning 02/15/20 Inactive venlafaxine ER 75 mg capsule,extended release 24 hr RxNorm: 453511 Take 3 Capsule(s) Oral QD 06/12/19 Active polyethylene glycol 3350 17 gram/dose oral powder RxNorm: 719141 Take 17=1 capful Gram(s) Oral BID as needed mix with 4-8oz of liquid 06/12/19 Active Levemir FlexTouch U-100 Insulin 100 unit/mL (3 mL) subcutaneous pen RxNorm: 388755 Inject 80 Unit(s) Subcutaneous BID 07/14/19 23 023 Inactive loperamide 2 mg capsule RxNorm: 196145 Take 1 Capsule(s) Oral QID as needed 06/12/19 22 Active Novolog Flexpen U-100 Insulin aspart 100 unit/mL (3 mL) subcutaneous RxNorm: 4202536 Insert 30 Unit(s) Subcutaneous TID with meals [...] Codes Status Date Referral: [facility] WPtel: [phone], [address] [id number] [place] Referral Records Received 09/21/2022 Referral: [facility] [place]: [address] [id number] [place] Referral Completed 05/28/2021 Referral: General Cardiology [...] [facility] [place] to have closer nursing attention.??Sister Jyotsna involved in his care cell# [phone]??Guardian: Don (tapan met in person 09/01/21), now has Lexii (same group as don)Lab Schedule: * 10/06/2022
--- OUTSIDE RECORDS SUMMARY | 2022-11-09 23:22 | XMS_ITS | CCD ---
Author Name Unknown Organization Unknown Care Team Providers Care [employer] Name Role Phone Tapan Shirley PA-C Primary Care Provider Unavailabl e Tapan Shirley PA-C Chronic Care Management Unavaila ble Summary Purpose DataExchange Insurance Providers Payer name Policy type / Coverage type Covered constitution party ID Effective Begin Date Effective End Date [place] [id number] [place] [id number] Unknown Unknown Family history Runs in the family Diagnosis Age At Onset No Known Diseases N/A Social History Social History Element Codes Description Effec tive Dates Living arrangements Unknown Jail 09/03/[address]: 0989593 Non-Smoker / No History of Smoking 09/02/[address]: 284237849 No Alcohol Consum ption 09/02/2020 Allergies, Adverse Reactions, Alerts Substance Reaction Codes Entered Date Inactivated Date Status LISINOPRIL RxNorm: 97957 02/12/2020 No Inactive Da te Active Metformin [...] 08/04/2021 Active Coronary artery disease invo lving [place] coronary artery of [place] heart, angina presence unspecified ICD-10: [...] ICD-10: M10 .30 ICD-9: 274.10 09/03/2020 Active snf (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 insulin ICD-10: Z79.4 09/03 [...] Fill Instructions Lyrica 100 mg capsule RxNorm: 066569 Take 1 Capsule(s) Oral QHS every night at bedtime Take 1 capsule by mouth once daily at bedtime 08/16/19 22 022 Inactive Lyrica 50 mg capsule RxNorm: 577732 Take 1 Capsule(s) Oral QAM every morning Take 1 capsule by mouth once daily 08/16/19 22 022 Inactive Levemir FlexTouch U-100 Insulin 100 unit/mL (3 mL) subcutaneous pen RxNorm: 703150 Inject 86 Unit(s) Subcutaneous BID 08/05/19 22 022 Inactive d/c 83units BID Lyrica 100 mg capsule RxNorm: 288997 Take 1 Capsule(s) Oral QHS every night at bedtime Take 1 capsule by mouth once daily at bedtime 07/14/19 22 Inactive Lyrica 50 mg capsule RxNorm: 737525 Take 1 Capsule(s) Oral QAM every morning Take 1 capsule by mouth once daily 07/14/19 22 Inactive Levemir FlexTouch U-100 Insulin 100 unit/mL (3 mL) subcutaneous pen RxNorm: 434878 Inject 83 Unit(s) Subcutaneous BID 07/08/19 22 [...] test strip hydralazine 50 mg tablet RxNorm: 740567 Take 1 Tablet(s) Oral QID 05/05/20 Inactive isosorbide mononitrate ER 30 mg tablet,extended release 24 hr RxNorm: 110791 Take 1 Tablet(s) Oral QD 05/05/20 No Stop Date Active venlafaxine ER 225 mg tablet,extended release 24 hr RxNorm: 072800 Take 1 Tablet(s) Oral QD 05/05/20 Inactive venlafaxine ER 225 mg tablet,extended release 24 hr RxNorm: 935316 Take 1 Tablet(s) Oral QD 05/05/20 Inactive hydralazine 50 mg tablet RxNorm: 623117 Take 1 Tablet(s) Oral QID 05/05/20 Inactive aspirin 81 mg tablet,delayed release RxNorm: 800301 Take 1 Tablet(s) Oral QD 03/31/20 Inactive Vitamin D2 1,250 mcg (50,000 unit) capsule RxNorm: 0687434 Take 1 Capsule(s) Oral QW once a week x 12 weeks 03/31/20 Inactive Zetia 10 mg tablet RxNorm: 762509 Take 1 Tablet(s) Oral QD 03/31/20 Inactive Vitamin D2 1,250 mcg (50,000 unit) capsule RxNorm: 8452771 Take 1 Capsule(s) Oral QW once a week 03/31/20 Inactive Zetia 10 mg tablet RxNorm: 671170 Take 1 Tablet(s) Oral QD 03/31/20 Inactive hydralazine 25 mg tablet RxNorm: 766001 Take 1 Tablet(s) Oral QID 03/31/20 Inactive hydralazine 25 mg tablet RxNorm: 379101 Take 1 Tablet(s) Oral QID 03/31/20 Inactive hydralazine 10 mg tablet RxNorm: 167069 Take 1 Tablet(s) Oral QID 03/03/20 21 021 Inactive cephalexin 500 mg tablet RxNorm: 623467 Take 1 Tablet(s) Oral QID 02/27/20 021 Inactive cephalexin 500 mg tablet RxNorm: 531687 Take 1 Tablet(s) Oral QID 02/27/20 021 Inactive lisinopril 40 mg tablet RxNorm: 661690 Take 1 Tablet(s) Oral QD 02/11/20 023 Inactive Eliquis 5 mg tablet RxNorm: 1399355 Take 1 Tablet(s) Oral BID 01/05/20 21 022 Inactive Eliquis 5 mg tablet RxNorm: 2384160 Take 2 Tablet(s) Oral QD 01/01/20 021 Inactive Lyrica 50 mg capsule RxNorm: 264297 Take 1 Capsule(s) Oral QAM every morning 12/24/19 021 Inactive Lyrica 100 mg capsule RxNorm: 047251 Take 1 Capsule(s) Oral QHS every night at bedtime 12/24/19 021 Inactive clotrimazole 1 % topical cream RxNorm: 289743 Apply to right foot and toes Topical BID 12/04/19 21 023 Inactive metoprolol succinate ER 200 mg tablet,extended release 24 hr RxNorm: 596352 Take 1 Tablet(s) Oral QD 12/04/19 023 Inactive ciprofloxacin 500 mg tablet RxNorm: 202590 Take 1 Tablet(s) Oral QD 11/30/19 021 Inactive DX ofloxacin otic drops Accu-Chek Guide test strips RxNorm: USE 1 TO CHECK GLUCOSE 4 TIMES DAILY AND NEEDED 11/15/19 21 023 Inactive Blood Glucose Test strips RxNorm: Use 1 Test Strip QID at PRN 11/05/19 21 023 Inactive E11.42 lisinopril 30 mg tablet RxNorm: 746593 Take 1 Tablet(s) Oral QD 10/30/19 21 021 Inactive lisinopril 20 mg tablet RxNorm: 493509 Take 1 Tablet(s) Oral QD 10/23/19 21 021 Inactive lisinopril 20 mg tablet RxNorm: 027866 Take 1 Tablet(s) Oral QD 10/23/19 21 021 Inactive lisinopril 10 mg tablet RxNorm: 776536 Take 1 Tablet(s) Oral QD 10/02/19 21 021 Inactive icosapent ethyl 1 gram capsule RxNorm: 5131605 Take 2 Capsule(s) (2 gm) Oral BID with meals 09/12/19 022 Inactive Okay to dispense one 2gm tab if you have that available. icosapent ethyl 1 gram capsule RxNorm: 6594120 Take 2 Capsule(s) Oral BID 09/12/19 021 Inactive Okay to dispense one 2gm tab if you have that available. amlodipine 10 mg tablet RxNorm: 163340 Take 1 Tablet(s) Oral QD 09/04/19 022 Inactive aspirin 81 mg tablet,delayed release RxNorm: 992674 Take 1 Tablet(s) Oral QD 09/04/19 21 021 Inactive Levemir FlexTouch U-100 Insulin 100 unit/mL (3 mL) subcutaneous pen RxNorm: 948853 Inject 150 Unit(s) Subcutaneous BID 09/04/19 21 022 Inactive venlafaxine ER 150 mg tablet,extended release 24 hr RxNorm: 769873 Take 1 Tablet(s) Oral QD 09/04/19 021 Inactive clotrimazole-betame thasone 1 %-0.05 % topical cream RxNorm: 625373 Apply to rash on red area on left abdomen/chest Topical BID 08/10/19 21 021 Inactive amlodipine 5 mg tablet RxNorm: 086121 Take 1 Tablet(s) Oral QD 07/31/19 21 021 Inactive cephalexin 500 mg tablet RxNorm: 950355 Take 1 Tablet(s) Oral BID BID - Twice Daily 07/31/19 21 021 Inactive Start 08/01/20 pantoprazole 40 mg tablet,delayed release RxNorm: 843654 Take 1 Tablet(s) Oral QAM every morning 02 022 Inactive senna 8.6 mg tablet RxNorm: 285657 Take 1 Tablet(s) Oral QD 07/08/19 022 Inactive pravastatin 80 mg tablet RxNorm: 303426 Take 1 Tablet(s) Oral QHS every night at bedtime 07/08/19 022 Inactive clotrimazole 1 % topical cream RxNorm: 090213 Apply to bilateral groin areas Topical BID 07/08/19 21 Inactive carbamazepine 200 mg tablet RxNorm: 995217 Take 1 Tablet(s) Oral BID 07/08/19 022 Inactive torsemide 20 mg tablet RxNorm: 753009 Take 1 Tablet(s) Oral QD 07/08/19 023 Inactive clopidogrel 75 mg tablet RxNorm: 329308 Take 1 Tablet(s) Oral QD 07/08/19 021 Inactive Blood Glucose Test strips RxNorm: Use 1 Test Strip QID at PRN 07/08/19 Inactive E11.42 Novolog Flexpen U-100 Insulin aspart 100 unit/mL (3 mL) subcutaneous RxNorm: 1431591 Administer per sliding scale Milliliter(s) Subcutaneous TID 151-200: 10 u; 201-250: 20 u; 251-300: 30 u; 301-350: 40 u; 351-400: 50 u. 07/08/19 Inactive lisinopril 5 mg tablet RxNorm: 712475 Take 1 Tablet(s) Oral QD 07/08/19 Inactive Novolog Flexpen U-100 Insulin aspart 100 unit/mL (3 mL) subcutaneous RxNorm: 4897080 Inject 85 Unit(s) Subcutaneous TID 07/08/19 022 Inactive metoprolol succinate ER 200 mg tablet,extended release 24 hr RxNorm: 127773 Take 1 Tablet(s) Oral QD 07/08/19 21 021 Inactive Vitamin D3 25 mcg (1,000 unit) tablet RxNorm: 215036 Take 1 Tablet(s) Oral QD 07/08/19 21 021 Inactive isosorbide dinitrate 30 mg tablet RxNorm: 212676 Take 1 Tablet(s) Oral QD 07/08/19 21 021 Inactive Levemir FlexTouch U-100 Insulin 100 unit/mL (3 mL) subcutaneous pen RxNorm: 100681 Inject 140 Unit(s) Subcutaneous BID 07/08/19 21 021 Inactive venlafaxine 75 mg tablet RxNorm: 349257 Take 1 Tablet(s) Oral QD 07/08/19 021 Inactive acetaminophen 500 mg tablet RxNorm: 413756 Take 1 Tablet(s) Oral TID as needed for headache 06/18/19 21 Inactive acetaminophen 500 mg tablet RxNorm: 698382 Take 1 Tablet(s) Oral TID as needed for headache 06/18/19 021 Inactive Lyrica 100 mg capsule RxNorm: 795378 Take 1 Capsule(s) Oral QHS every night at bedtime 06/11/19 21 021 Inactive Lyrica 50 mg capsule RxNorm: 315235 Take 1 Capsule(s) Oral QAM every morning 06/10/19 21 021 Inactive hydrocortisone 2.5 % topical cream RxNorm: 102914 Apply to bilateral groin creases Topical BID 05/15/20 20 021 Inactive clotrimazole 1 % topical cream RxNorm: 581269 Apply to bilateral groin areas Topical BID 05/15/20 20 021 Inactive Lyrica 50 mg capsule RxNorm: 431430 Take 1 Capsule(s) Oral QAM every morning 05/14/20 20 020 Inactive Lyrica 100 mg capsule RxNorm: 369401 Take 1 Capsule(s) Oral QHS every night [...] Inactive Nystop 100,000 unit/gram topical powder RxNorm: 077190 Apply to abd folds, under breasts and L side of groin Topical BID x 14 days, then BID PRN 04/08/20 20 021 Inactive dx: yeast dermatitis Lyrica 100 mg capsule RxNorm: 805963 Take 1 Capsule(s) Oral QHS every night at bedtime 03/13/20 20 Inactive Lyrica 50 mg capsule RxNorm: 869067 Take 1 Capsule(s) Oral QAM every morning 03/13/20 Inactive ketoconazole 2 % shampoo RxNorm: 596366 Apply Topical two times a week with showers 03/11/20 20 Inactive cholecalciferol (vitamin D3) 50 mcg (2,000 unit) tablet RxNorm: 963132 Take 1 Tablet(s) Oral QD 03/11/20 20 Inactive Zetia 10 mg tablet RxNorm: 288215 Take 1 Tablet(s) Oral QD 03/07/20 20 021 Inactive Zetia 10 mg tablet RxNorm: 857768 Take 1 Tablet(s) Oral QD 03/07/20 20 Inactive Lyrica 50 mg capsule RxNorm: 262392 Take 1 Capsule(s) Oral QAM every morning 02/15/20 20 Inactive Lyrica 100 mg capsule RxNorm: 261273 Take 1 Capsule(s) Oral QHS every night at bedtime 02/15/20 20 Inactive Lyrica 100 mg capsule RxNorm: 331241 Take 1 Capsule(s) Oral QHS every night at bedtime 02/15/20 20 Inactive Lyrica 50 mg capsule RxNorm: 791257 Take 1 Capsule(s) Oral QAM every morning 02/15/20 20 020 Inactive venlafaxine ER 75 mg capsule,extended release 24 hr RxNorm: 762051 Take 3 Capsule(s) Oral QD 06/12/19 22 Active polyethylene glycol 3350 17 gram/dose oral powder RxNorm: 152097 Take 17=1 capful Gram(s) Oral BID as needed mix with 4-8oz of liquid 06/12/19 Active Levemir FlexTouch U-100 Insulin 100 unit/mL (3 mL) subcutaneous pen RxNorm: 228041 Inject 80 Unit(s) Subcutaneous BID 07/14/19 23 023 Inactive loperamide 2 mg capsule RxNorm: 510406 Take 1 Capsule(s) Oral QID as needed 06/12/19 22 Active Novolog Flexpen U-100 Insulin aspart 100 unit/mL (3 mL) subcutaneous RxNorm: 8305733 Insert 30 Unit(s) Subcutaneous TID with meals [...] Referral: [facility] WPtel: [id number], [address] [id number] [place] Referral Records Received 09/21/2022 Referral: [facility] WPtel: [id number] [id number] [place] Referral Completed 05/28/2021 Referral: General Cardiology Referral Complet ed 01/03/2021 Referral: General Psychologist Referral Close d Instructions Comment Date Leonid is a?? Male being seen living at [facility]. Initial [facility] visit 01/2020. PMHx including DMII, CAD w/ 5 stents, Depression, Seizure Disorder and CKD stage 3. He moved into [facility] in 12/2019 but after a hospitalization 05/2021 he moved to the [facility] to have closer nursing attention.??Sister Jyotsna involved in his care cell# [phone]??Guardian: Don (tapan met in person 09/01/21), now has Lexii (same group as don)Lab Schedule: * 10/06/2022
--- OUTSIDE RECORDS SUMMARY | 2022-11-09 23:23 | XMS_ITS | CCD ---
Author Name Unknown Organization Unknown Care Team Providers Care Reception Manager Name Role Phone Tapan Shirley PA-C Primary Care Provider Unavailabl e Tapan Shirley PA-C Chronic Care Management Unavaila ble Summary Purpose DataExchange Insurance Providers Payer name Policy type / Coverage type Covered alliance party ID Effective Begin Date Effective End Date Medicare [place] Medicare Part B [id number] Unknown Unknown Medicaid [place] Medicare Part B [id number] Unknown Unknown Family history Runs in the family Diagnosis Age At Onset No Known Diseases N/A Social History Social History Element Codes Description Effec tive Dates Living arrangements Unknown [facility] 09/03/[address]: 0740455 Non-Smoker / No History of Smoking 09/02/[address]: 877348228 No Alcohol Consum ption 09/02/2020 Allergies, Adverse Reactions, Alerts Substance Reaction Codes Entered Date Inactivated Date Status LISINOPRIL RxNorm: 09676 02/12/2020 No Inactive Da te Active Metformin [...] 08/04/2021 Active Coronary artery disease invo lving [place] coronary artery of [place] heart, angina presence unspecified ICD-10: I25.10 [...] ICD-10: M10 .30 ICD-9: 274.10 09/03/2020 Active alf (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 insulin [...] benzoyl peroxide 10 % topical cleanser RxNorm: 024172 Apply 1 Application Topical QD apply to face, wash rinse and dry once daily (may change to QOD if drying) 08/19/19 022 Inactive (%covered by insurance) #60ml refill 11 dx: acne benzoyl peroxide 10 % topical cleanser RxNorm: 923167 Apply 1 Application Topical QD apply to face, wash rinse and dry once daily (may change to QOD if drying) 08/19/19 22 022 Inactive (%covered by insurance) #60ml refill 11 dx: acne benzoyl peroxide 10 % topical cleanser RxNorm: 706675 Apply 1 Application Topical QD apply to face, wash rinse and dry once daily (may change to QOD if drying) 08/19/19 22 022 Inactive (%covered by insurance) #60ml refill 11 dx: acne Lyrica 50 mg capsule RxNorm: 230324 Take 1 Capsule(s) Oral QAM every morning Take 1 capsule by mouth once daily 08/19/19 22 022 Inactive benzoyl peroxide 10 % topical cleanser RxNorm: 273129 Apply 1 Application Topical QD apply to face, wash rinse and dry once daily (may change to QOD if drying) 08/19/19 22 022 Inactive (%covered by insurance) #60ml refill 11 dx: acne Lyrica 100 mg capsule RxNorm: 423582 Take 1 Capsule(s) Oral QHS every night at bedtime Take 1 capsule by mouth once daily at bedtime 08/19/19 22 022 Inactive Lyrica 100 mg capsule RxNorm: 188443 Take 1 Capsule(s) Oral QHS every night at bedtime Take 1 capsule by mouth once daily at bedtime 08/16/19 22 022 Inactive Lyrica 50 mg capsule RxNorm: 407467 Take 1 Capsule(s) Oral QAM every morning Take 1 capsule by mouth once daily 08/16/19 22 022 Inactive Levemir FlexTouch U-100 Insulin 100 unit/mL (3 mL) subcutaneous pen RxNorm: 979095 Inject 86 Unit(s) Subcutaneous BID 08/05/19 22 022 Inactive d/c 83units BID Lyrica 100 mg capsule RxNorm: 906545 Take 1 Capsule(s) Oral QHS every night at bedtime Take 1 capsule by mouth once daily at bedtime 07/14/19 22 022 Inactive Lyrica 50 mg capsule RxNorm: 101530 Take 1 Capsule(s) Oral QAM every morning Take 1 capsule by mouth once daily 07/14/19 22 022 Inactive Levemir FlexTouch U-100 Insulin 100 unit/mL (3 mL) subcutaneous pen RxNorm: 493213 Inject 83 Unit(s) Subcutaneous BID 02/ 022 [...] test strip hydralazine 50 mg tablet RxNorm: 219232 Take 1 Tablet(s) Oral QID 05/05/20 21 022 Inactive isosorbide mononitrate ER 30 mg tablet,extended release 24 hr RxNorm: 329406 Take 1 Tablet(s) Oral QD 05/05/20 No Stop Date Active venlafaxine ER 225 mg tablet,extended release 24 hr RxNorm: 575512 Take 1 Tablet(s) Oral QD 05/05/20 21 021 Inactive venlafaxine ER 225 mg tablet,extended release 24 hr RxNorm: 844199 Take 1 Tablet(s) Oral QD 05/05/20 022 Inactive hydralazine 50 mg tablet RxNorm: 118040 Take 1 Tablet(s) Oral QID 05/05/20 21 021 Inactive aspirin 81 mg tablet,delayed release RxNorm: 042538 Take 1 Tablet(s) Oral QD 03/31/20 Inactive Vitamin D2 1,250 mcg (50,000 unit) capsule RxNorm: 9875930 Take 1 Capsule(s) Oral QW once a week x 12 weeks 03/31/20 Inactive Zetia 10 mg tablet RxNorm: 910426 Take 1 Tablet(s) Oral QD 03/31/20 Inactive Vitamin D2 1,250 mcg (50,000 unit) capsule RxNorm: 1889795 Take 1 Capsule(s) Oral QW once a week 03/31/20 Inactive Zetia 10 mg tablet RxNorm: 842859 Take 1 Tablet(s) Oral QD 03/31/20 021 Inactive hydralazine 25 mg tablet RxNorm: 719585 Take 1 Tablet(s) Oral QID 03/31/20 021 Inactive hydralazine 25 mg tablet RxNorm: 129467 Take 1 Tablet(s) Oral QID 03/31/20 021 Inactive hydralazine 10 mg tablet RxNorm: 575419 Take 1 Tablet(s) Oral QID 03/03/20 021 Inactive cephalexin 500 mg tablet RxNorm: 201162 Take 1 Tablet(s) Oral QID 02/27/20 021 Inactive cephalexin 500 mg tablet RxNorm: 368221 Take 1 Tablet(s) Oral QID 02/27/20 021 Inactive lisinopril 40 mg tablet RxNorm: 371482 Take 1 Tablet(s) Oral QD 02/11/20 21 023 Inactive Eliquis 5 mg tablet RxNorm: 3271985 Take 1 Tablet(s) Oral BID 01/05/20 21 022 Inactive Eliquis 5 mg tablet RxNorm: 4826316 Take 2 Tablet(s) Oral QD 01/01/20 21 021 Inactive Lyrica 50 mg capsule RxNorm: 105596 Take 1 Capsule(s) Oral QAM every morning 12/24/19 21 021 Inactive Lyrica 100 mg capsule RxNorm: 879725 Take 1 Capsule(s) Oral QHS every night at bedtime 12/24/19 021 Inactive clotrimazole 1 % topical cream RxNorm: 688467 Apply to right foot and toes Topical BID 12/04/19 21 023 Inactive metoprolol succinate ER 200 mg tablet,extended release 24 hr RxNorm: 526728 Take 1 Tablet(s) Oral QD 12/04/19 21 023 Inactive ciprofloxacin 500 mg tablet RxNorm: 323049 Take 1 Tablet(s) Oral QD 11/30/19 21 021 Inactive DX ofloxacin otic drops Accu-Chek Guide test strips RxNorm: USE 1 TO CHECK GLUCOSE 4 TIMES DAILY AND NEEDED 11/15/19 21 023 Inactive Blood Glucose Test strips RxNorm: Use 1 Test Strip QID at PRN 11/05/19 21 023 Inactive E11.42 lisinopril 30 mg tablet RxNorm: 303956 Take 1 Tablet(s) Oral QD 10/30/19 021 Inactive lisinopril 20 mg tablet RxNorm: 753123 Take 1 Tablet(s) Oral QD 10/23/19 21 021 Inactive lisinopril 20 mg tablet RxNorm: 196242 Take 1 Tablet(s) Oral QD 10/23/19 21 021 Inactive lisinopril 10 mg tablet RxNorm: 965265 Take 1 Tablet(s) Oral QD 10/02/19 21 021 Inactive icosapent ethyl 1 gram capsule RxNorm: 5049713 Take 2 Capsule(s) (2 gm) Oral BID with meals 09/12/19 21 022 Inactive Okay to dispense one 2gm tab if you have that available. icosapent ethyl 1 gram capsule RxNorm: 1536298 Take 2 Capsule(s) Oral BID 09/12/19 21 Inactive Okay to dispense one 2gm tab if you have that available. amlodipine 10 mg tablet RxNorm: 871708 Take 1 Tablet(s) Oral QD 09/04/19 022 Inactive aspirin 81 mg tablet,delayed release RxNorm: 394649 Take 1 Tablet(s) Oral QD 09/04/19 021 Inactive Levemir FlexTouch U-100 Insulin 100 unit/mL (3 mL) subcutaneous pen RxNorm: 402914 Inject 150 Unit(s) Subcutaneous BID 09/04/19 022 Inactive venlafaxine ER 150 mg tablet,extended release 24 hr RxNorm: 892579 Take 1 Tablet(s) Oral QD 09/04/19 021 Inactive clotrimazole-betame thasone 1 %-0.05 % topical cream RxNorm: 465666 Apply to rash on red area on left abdomen/chest Topical BID 08/10/19 21 021 Inactive amlodipine 5 mg tablet RxNorm: 083350 Take 1 Tablet(s) Oral QD 07/31/19 Inactive cephalexin 500 mg tablet RxNorm: 850226 Take 1 Tablet(s) Oral BID BID - Twice Daily 07/31/19 021 Inactive Start 08/01/20 pantoprazole 40 mg tablet,delayed release RxNorm: 133069 Take 1 Tablet(s) Oral QAM every morning 07/08/19 022 Inactive senna 8.6 mg tablet RxNorm: 950599 Take 1 Tablet(s) Oral QD 07/08/19 022 Inactive pravastatin 80 mg tablet RxNorm: 095441 Take 1 Tablet(s) Oral QHS every night at bedtime 07/08/19 21 022 Inactive clotrimazole 1 % topical cream RxNorm: 860793 Apply to bilateral groin areas Topical BID 07/08/19 21 022 Inactive carbamazepine 200 mg tablet RxNorm: 021486 Take 1 Tablet(s) Oral BID 07/08/19 022 Inactive torsemide 20 mg tablet RxNorm: 526928 Take 1 Tablet(s) Oral QD 07/08/19 21 023 Inactive clopidogrel 75 mg tablet RxNorm: 118659 Take 1 Tablet(s) Oral QD 07/08/19 021 Inactive Blood Glucose Test strips RxNorm: Use 1 Test Strip QID at PRN 07/08/19 21 Inactive E11.42 Novolog Flexpen U-100 Insulin aspart 100 unit/mL (3 mL) subcutaneous RxNorm: 8198285 Administer per sliding scale Milliliter(s) Subcutaneous TID 151-200: 10 u; 201-250: 20 u; 251-300: 30 u; 301-350: 40 u; 351-400: 50 u. 07/08/19 022 Inactive lisinopril 5 mg tablet RxNorm: 167717 Take 1 Tablet(s) Oral QD 07/08/19 021 Inactive Novolog Flexpen U-100 Insulin aspart 100 unit/mL (3 mL) subcutaneous RxNorm: 3835725 Inject 85 Unit(s) Subcutaneous TID 07/08/19 Inactive metoprolol succinate ER 200 mg tablet,extended release 24 hr RxNorm: 192581 Take 1 Tablet(s) Oral QD 07/08/19 021 Inactive Vitamin D3 25 mcg (1,000 unit) tablet RxNorm: 822175 Take 1 Tablet(s) Oral QD 07/08/19 021 Inactive isosorbide dinitrate 30 mg tablet RxNorm: 586476 Take 1 Tablet(s) Oral QD 07/08/19 021 Inactive Levemir FlexTouch U-100 Insulin 100 unit/mL (3 mL) subcutaneous pen RxNorm: 866035 Inject 140 Unit(s) Subcutaneous BID 07/08/19 021 Inactive venlafaxine 75 mg tablet RxNorm: 744222 Take 1 Tablet(s) Oral QD 07/08/19 021 Inactive acetaminophen 500 mg tablet RxNorm: 608372 Take 1 Tablet(s) Oral TID as needed for headache 06/18/1903/2 021 Inactive acetaminophen 500 mg tablet RxNorm: 692379 Take 1 Tablet(s) Oral TID as needed for headache 06/18/19 21 021 Inactive Lyrica 100 mg capsule RxNorm: 158468 Take 1 Capsule(s) Oral QHS every night at bedtime 06/11/19 21 021 Inactive Lyrica 50 mg capsule RxNorm: 763480 Take 1 Capsule(s) Oral QAM every morning 06/10/19 21 021 Inactive hydrocortisone 2.5 % topical cream RxNorm: 491415 Apply to bilateral groin creases Topical BID 05/15/20 20 021 Inactive clotrimazole 1 % topical cream RxNorm: 358583 Apply to bilateral groin areas Topical BID 05/15/20 20 021 Inactive Lyrica 50 mg capsule RxNorm: 660729 Take 1 Capsule(s) Oral QAM every morning 05/14/20 20 020 Inactive Lyrica 100 mg capsule RxNorm: 624357 Take 1 Capsule(s) Oral QHS every night [...] Inactive Nystop 100,000 unit/gram topical powder RxNorm: 763120 Apply to abd folds, under breasts and L side of groin Topical BID x 14 days, then BID PRN 04/08/20 Inactive dx: yeast dermatitis Lyrica 100 mg capsule RxNorm: 696201 Take 1 Capsule(s) Oral QHS every night at bedtime 03/13/20 Inactive Lyrica 50 mg capsule RxNorm: 636780 Take 1 Capsule(s) Oral QAM every morning 03/13/20 Inactive ketoconazole 2 % shampoo RxNorm: 359296 Apply Topical two times a week with showers 03/11/20 Inactive cholecalciferol (vitamin D3) 50 mcg (2,000 unit) tablet RxNorm: 087371 Take 1 Tablet(s) Oral QD 03/11/20 Inactive Zetia 10 mg tablet RxNorm: 889507 Take 1 Tablet(s) Oral QD 03/07/20 Inactive Zetia 10 mg tablet RxNorm: 978051 Take 1 Tablet(s) Oral QD 03/07/20 Inactive Lyrica 50 mg capsule RxNorm: 857295 Take 1 Capsule(s) Oral QAM every morning 02/15/20 20 Inactive Lyrica 100 mg capsule RxNorm: 440613 Take 1 Capsule(s) Oral QHS every night at bedtime 02/15/20 Inactive Lyrica 100 mg capsule RxNorm: 762848 Take 1 Capsule(s) Oral QHS every night at bedtime 02/15/20 Inactive Lyrica 50 mg capsule RxNorm: 382473 Take 1 Capsule(s) Oral QAM every morning 02/15/20 Inactive venlafaxine ER 75 mg capsule,extended release 24 hr RxNorm: 674788 Take 3 Capsule(s) Oral QD 06/12/19 Active polyethylene glycol 3350 17 gram/dose oral powder RxNorm: 789714 Take 17=1 capful Gram(s) Oral BID as needed mix with 4-8oz of liquid 06/12/19 Active Levemir FlexTouch U-100 Insulin 100 unit/mL (3 mL) subcutaneous pen RxNorm: 825241 Inject 80 Unit(s) Subcutaneous BID 07/14/19 23 023 Inactive loperamide 2 mg capsule RxNorm: 526806 Take 1 Capsule(s) Oral QID as needed 06/12/19 22 Active Novolog Flexpen U-100 Insulin aspart 100 unit/mL (3 mL) subcutaneous RxNorm: 2390925 Insert 30 Unit(s) Subcutaneous TID with meals [...] [facility] WPtel: [id number] [id number] [place] Referral Records Received 09/21/2022 Referral: [facility] WPtel: [address] [id number] [place] Referral Completed 05/28/2021 Referral: General Cardiology Referral Complet ed 01/03/2021 Referral: General Psychologist Referral Close d Instructions Comment Date Leonid is a?? Male being seen living at [facility]. Initial [facility] visit 01/2020. PMHx including DMII, CAD w/ 5 stents, Depression, Seizure Disorder and CKD stage 3. He moved into [facility] in 12/2019 but after a hospitalization 05/2021 he moved to the [facility] to have closer nursing attention.??Sister Jyotsna involved in his care cell# [phone]??Guardian: Don (tapan met in person 09/01/21), now has Lexii (same group as don)Lab Schedule: * 10/06/2022
--- OUTSIDE RECORDS SUMMARY | 2022-11-09 23:23 | XMS_ITS | CCD ---
Author Name Unknown Organization Unknown Care Team Providers Care Hauling [employer]or Name Role Phone Tapan Shirley PA-C Primary Care Provider Unavailabl e Tapan Shirley PA-C Chronic Care Management Unavaila ble Summary Purpose DataExchange Insurance Providers Payer name Policy type / Coverage type Covered alliance party ID Effective Begin Date Effective End Date [place] [id number] Unknown Unknown [place] [id number] Unknown Unknown Family history Runs in the family Diagnosis Age At Onset No Known Diseases N/A Social History Social History Element Codes Description Effec tive Dates Living arrangements Unknown Correction 09/03/[address]: 3158668 Non-Smoker / No History of Smoking 09/02/[address]: 869266545 No Alcohol Consum ption 09/02/2020 Allergies, Adverse Reactions, Alerts Substance Reaction Codes Entered Date Inactivated Date Status LISINOPRIL RxNorm: 25887 02/12/2020 No Inactive Da te Active Metformin [...] 08/04/2021 Active Coronary artery disease invo lving [place] coronary artery of [place] heart, angina presence unspecified ICD-10: I25.10 ICD-9: [...] benzoyl peroxide 10 % topical cleanser RxNorm: 764648 Apply 1 Application Topical QD apply to face, wash rinse and dry once daily (may change to QOD if drying) 08/19/19 022 Inactive (%covered by insurance) #60ml refill 11 dx: acne benzoyl peroxide 10 % topical cleanser RxNorm: 294130 Apply 1 Application Topical QD apply to face, wash rinse and dry once daily (may change to QOD if drying) 08/19/19 22 022 Inactive (%covered by insurance) #60ml refill 11 dx: acne benzoyl peroxide 10 % topical cleanser RxNorm: 176193 Apply 1 Application Topical QD apply to face, wash rinse and dry once daily (may change to QOD if drying) 08/19/19 22 022 Inactive (%covered by insurance) #60ml refill 11 dx: acne Lyrica 50 mg capsule RxNorm: 682709 Take 1 Capsule(s) Oral QAM every morning Take 1 capsule by mouth once daily 08/19/19 22 022 Inactive benzoyl peroxide 10 % topical cleanser RxNorm: 599761 Apply 1 Application Topical QD apply to face, wash rinse and dry once daily (may change to QOD if drying) 08/19/19 22 022 Inactive (%covered by insurance) #60ml refill 11 dx: acne Lyrica 100 mg capsule RxNorm: 832018 Take 1 Capsule(s) Oral QHS every night at bedtime Take 1 capsule by mouth once daily at bedtime 08/19/19 22 022 Inactive Lyrica 100 mg capsule RxNorm: 762533 Take 1 Capsule(s) Oral QHS every night at bedtime Take 1 capsule by mouth once daily at bedtime 08/16/19 22 022 Inactive Lyrica 50 mg capsule RxNorm: 062193 Take 1 Capsule(s) Oral QAM every morning Take 1 capsule by mouth once daily 08/16/19 22 022 Inactive Levemir FlexTouch U-100 Insulin 100 unit/mL (3 mL) subcutaneous pen RxNorm: 307550 Inject 86 Unit(s) Subcutaneous BID 08/05/19 22 022 Inactive d/c 83units BID Lyrica 100 mg capsule RxNorm: 039155 Take 1 Capsule(s) Oral QHS every night at bedtime Take 1 capsule by mouth once daily at bedtime 07/14/19 22 022 Inactive Lyrica 50 mg capsule RxNorm: 432607 Take 1 Capsule(s) Oral QAM every morning Take 1 capsule by mouth once daily 07/14/19 22 022 Inactive Levemir FlexTouch U-100 Insulin 100 unit/mL (3 mL) subcutaneous pen RxNorm: 470384 Inject 83 Unit(s) Subcutaneous BID 02/ 022 [...] test strip hydralazine 50 mg tablet RxNorm: 387908 Take 1 Tablet(s) Oral QID 05/05/20 21 022 Inactive isosorbide mononitrate ER 30 mg tablet,extended release 24 hr RxNorm: 751431 Take 1 Tablet(s) Oral QD 05/05/20 No Stop Date Active venlafaxine ER 225 mg tablet,extended release 24 hr RxNorm: 972102 Take 1 Tablet(s) Oral QD 05/05/20 21 021 Inactive venlafaxine ER 225 mg tablet,extended release 24 hr RxNorm: 875968 Take 1 Tablet(s) Oral QD 05/05/20 022 Inactive hydralazine 50 mg tablet RxNorm: 115194 Take 1 Tablet(s) Oral QID 05/05/20 21 021 Inactive aspirin 81 mg tablet,delayed release RxNorm: 798046 Take 1 Tablet(s) Oral QD 03/31/20 Inactive Vitamin D2 1,250 mcg (50,000 unit) capsule RxNorm: 9257254 Take 1 Capsule(s) Oral QW once a week x 12 weeks 03/31/20 Inactive Zetia 10 mg tablet RxNorm: 040734 Take 1 Tablet(s) Oral QD 03/31/20 Inactive Vitamin D2 1,250 mcg (50,000 unit) capsule RxNorm: 3076002 Take 1 Capsule(s) Oral QW once a week 03/31/20 Inactive Zetia 10 mg tablet RxNorm: 794444 Take 1 Tablet(s) Oral QD 03/31/20 021 Inactive hydralazine 25 mg tablet RxNorm: 381095 Take 1 Tablet(s) Oral QID 03/31/20 021 Inactive hydralazine 25 mg tablet RxNorm: 743462 Take 1 Tablet(s) Oral QID 03/31/20 021 Inactive hydralazine 10 mg tablet RxNorm: 808352 Take 1 Tablet(s) Oral QID 03/03/20 021 Inactive cephalexin 500 mg tablet RxNorm: 357912 Take 1 Tablet(s) Oral QID 02/27/20 021 Inactive cephalexin 500 mg tablet RxNorm: 547825 Take 1 Tablet(s) Oral QID 02/27/20 021 Inactive lisinopril 40 mg tablet RxNorm: 983344 Take 1 Tablet(s) Oral QD 02/11/20 21 023 Inactive Eliquis 5 mg tablet RxNorm: 5624935 Take 1 Tablet(s) Oral BID 01/05/20 21 022 Inactive Eliquis 5 mg tablet RxNorm: 1367482 Take 2 Tablet(s) Oral QD 01/01/20 21 021 Inactive Lyrica 50 mg capsule RxNorm: 172153 Take 1 Capsule(s) Oral QAM every morning 12/24/19 21 021 Inactive Lyrica 100 mg capsule RxNorm: 621184 Take 1 Capsule(s) Oral QHS every night at bedtime 12/24/19 021 Inactive clotrimazole 1 % topical cream RxNorm: 914553 Apply to right foot and toes Topical BID 12/04/19 21 023 Inactive metoprolol succinate ER 200 mg tablet,extended release 24 hr RxNorm: 164596 Take 1 Tablet(s) Oral QD 12/04/19 21 023 Inactive ciprofloxacin 500 mg tablet RxNorm: 860669 Take 1 Tablet(s) Oral QD 11/30/19 21 021 Inactive DX ofloxacin otic drops Accu-Chek Guide test strips RxNorm: USE 1 TO CHECK GLUCOSE 4 TIMES DAILY AND NEEDED 11/15/19 21 023 Inactive Blood Glucose Test strips RxNorm: Use 1 Test Strip QID at PRN 11/05/19 21 023 Inactive E11.42 lisinopril 30 mg tablet RxNorm: 912013 Take 1 Tablet(s) Oral QD 10/30/19 021 Inactive lisinopril 20 mg tablet RxNorm: 560257 Take 1 Tablet(s) Oral QD 10/23/19 21 021 Inactive lisinopril 20 mg tablet RxNorm: 862909 Take 1 Tablet(s) Oral QD 10/23/19 21 021 Inactive lisinopril 10 mg tablet RxNorm: 276849 Take 1 Tablet(s) Oral QD 10/02/19 21 021 Inactive icosapent ethyl 1 gram capsule RxNorm: 8775510 Take 2 Capsule(s) (2 gm) Oral BID with meals 09/12/19 21 022 Inactive Okay to dispense one 2gm tab if you have that available. icosapent ethyl 1 gram capsule RxNorm: 0049965 Take 2 Capsule(s) Oral BID 09/12/19 21 Inactive Okay to dispense one 2gm tab if you have that available. amlodipine 10 mg tablet RxNorm: 836256 Take 1 Tablet(s) Oral QD 09/04/19 022 Inactive aspirin 81 mg tablet,delayed release RxNorm: 603088 Take 1 Tablet(s) Oral QD 09/04/19 021 Inactive Levemir FlexTouch U-100 Insulin 100 unit/mL (3 mL) subcutaneous pen RxNorm: 604385 Inject 150 Unit(s) Subcutaneous BID 09/04/19 022 Inactive venlafaxine ER 150 mg tablet,extended release 24 hr RxNorm: 562895 Take 1 Tablet(s) Oral QD 09/04/19 021 Inactive clotrimazole-betame thasone 1 %-0.05 % topical cream RxNorm: 017316 Apply to rash on red area on left abdomen/chest Topical BID 08/10/19 21 021 Inactive amlodipine 5 mg tablet RxNorm: 867489 Take 1 Tablet(s) Oral QD 07/31/19 Inactive cephalexin 500 mg tablet RxNorm: 168376 Take 1 Tablet(s) Oral BID BID - Twice Daily 07/31/19 021 Inactive Start 08/01/20 pantoprazole 40 mg tablet,delayed release RxNorm: 338227 Take 1 Tablet(s) Oral QAM every morning 07/08/19 022 Inactive senna 8.6 mg tablet RxNorm: 552556 Take 1 Tablet(s) Oral QD 07/08/19 022 Inactive pravastatin 80 mg tablet RxNorm: 823652 Take 1 Tablet(s) Oral QHS every night at bedtime 07/08/19 21 022 Inactive clotrimazole 1 % topical cream RxNorm: 935221 Apply to bilateral groin areas Topical BID 07/08/19 21 022 Inactive carbamazepine 200 mg tablet RxNorm: 018016 Take 1 Tablet(s) Oral BID 07/08/19 022 Inactive torsemide 20 mg tablet RxNorm: 534950 Take 1 Tablet(s) Oral QD 07/08/19 21 023 Inactive clopidogrel 75 mg tablet RxNorm: 450729 Take 1 Tablet(s) Oral QD 07/08/19 021 Inactive Blood Glucose Test strips RxNorm: Use 1 Test Strip QID at PRN 07/08/19 21 Inactive E11.42 Novolog Flexpen U-100 Insulin aspart 100 unit/mL (3 mL) subcutaneous RxNorm: 4839888 Administer per sliding scale Milliliter(s) Subcutaneous TID 151-200: 10 u; 201-250: 20 u; 251-300: 30 u; 301-350: 40 u; 351-400: 50 u. 07/08/19 022 Inactive lisinopril 5 mg tablet RxNorm: 917133 Take 1 Tablet(s) Oral QD 07/08/19 021 Inactive Novolog Flexpen U-100 Insulin aspart 100 unit/mL (3 mL) subcutaneous RxNorm: 2733764 Inject 85 Unit(s) Subcutaneous TID 07/08/19 Inactive metoprolol succinate ER 200 mg tablet,extended release 24 hr RxNorm: 487229 Take 1 Tablet(s) Oral QD 07/08/19 021 Inactive Vitamin D3 25 mcg (1,000 unit) tablet RxNorm: 910533 Take 1 Tablet(s) Oral QD 07/08/19 021 Inactive isosorbide dinitrate 30 mg tablet RxNorm: 988329 Take 1 Tablet(s) Oral QD 07/08/19 021 Inactive Levemir FlexTouch U-100 Insulin 100 unit/mL (3 mL) subcutaneous pen RxNorm: 135425 Inject 140 Unit(s) Subcutaneous BID 07/08/19 021 Inactive venlafaxine 75 mg tablet RxNorm: 008899 Take 1 Tablet(s) Oral QD 07/08/19 021 Inactive acetaminophen 500 mg tablet RxNorm: 866561 Take 1 Tablet(s) Oral TID as needed for headache 06/18/1903/2 021 Inactive acetaminophen 500 mg tablet RxNorm: 127191 Take 1 Tablet(s) Oral TID as needed for headache 06/18/19 21 021 Inactive Lyrica 100 mg capsule RxNorm: 437571 Take 1 Capsule(s) Oral QHS every night at bedtime 06/11/19 21 021 Inactive Lyrica 50 mg capsule RxNorm: 409836 Take 1 Capsule(s) Oral QAM every morning 06/10/19 21 021 Inactive hydrocortisone 2.5 % topical cream RxNorm: 518265 Apply to bilateral groin creases Topical BID 05/15/20 20 021 Inactive clotrimazole 1 % topical cream RxNorm: 469060 Apply to bilateral groin areas Topical BID 05/15/20 20 021 Inactive Lyrica 50 mg capsule RxNorm: 066937 Take 1 Capsule(s) Oral QAM every morning 05/14/20 20 020 Inactive Lyrica 100 mg capsule RxNorm: 933807 Take 1 Capsule(s) Oral QHS every night [...] Inactive Nystop 100,000 unit/gram topical powder RxNorm: 101230 Apply to abd folds, under breasts and L side of groin Topical BID x 14 days, then BID PRN 04/08/20 Inactive dx: yeast dermatitis Lyrica 100 mg capsule RxNorm: 533978 Take 1 Capsule(s) Oral QHS every night at bedtime 03/13/20 Inactive Lyrica 50 mg capsule RxNorm: 566794 Take 1 Capsule(s) Oral QAM every morning 03/13/20 Inactive ketoconazole 2 % shampoo RxNorm: 993330 Apply Topical two times a week with showers 03/11/20 Inactive cholecalciferol (vitamin D3) 50 mcg (2,000 unit) tablet RxNorm: 826156 Take 1 Tablet(s) Oral QD 03/11/20 Inactive Zetia 10 mg tablet RxNorm: 172872 Take 1 Tablet(s) Oral QD 03/07/20 Inactive Zetia 10 mg tablet RxNorm: 396088 Take 1 Tablet(s) Oral QD 03/07/20 Inactive Lyrica 50 mg capsule RxNorm: 975973 Take 1 Capsule(s) Oral QAM every morning 02/15/20 20 Inactive Lyrica 100 mg capsule RxNorm: 248280 Take 1 Capsule(s) Oral QHS every night at bedtime 02/15/20 Inactive Lyrica 100 mg capsule RxNorm: 999215 Take 1 Capsule(s) Oral QHS every night at bedtime 02/15/20 Inactive Lyrica 50 mg capsule RxNorm: 821872 Take 1 Capsule(s) Oral QAM every morning 02/15/20 Inactive venlafaxine ER 75 mg capsule,extended release 24 hr RxNorm: 576974 Take 3 Capsule(s) Oral QD 06/12/19 Active polyethylene glycol 3350 17 gram/dose oral powder RxNorm: 184840 Take 17=1 capful Gram(s) Oral BID as needed mix with 4-8oz of liquid 06/12/19 Active Levemir FlexTouch U-100 Insulin 100 unit/mL (3 mL) subcutaneous pen RxNorm: 097235 Inject 80 Unit(s) Subcutaneous BID 07/14/19 23 023 Inactive loperamide 2 mg capsule RxNorm: 120839 Take 1 Capsule(s) Oral QID as needed 06/12/19 22 Active Novolog Flexpen U-100 Insulin aspart 100 unit/mL (3 mL) subcutaneous RxNorm: 6886503 Insert 30 Unit(s) Subcutaneous TID with meals [...] Referral: [facility] WPtel: [phone], [address] [id number] [place] Referral Records Received 09/21/2022 Referral: [facility] WPtel: [address] [id number] [place] Referral Completed 05/28/2021 Referral: General Cardiology Referral Complet ed 01/03/2021 Referral: General Psychologist Referral Close d Instructions Comment Date Leonid is a?? Male being seen living at [facility]. Initial [facility] visit 01/2020. PMHx including DMII, CAD w/ 5 stents, Depression, Seizure Disorder and CKD stage 3. He moved into [facility] in 12/2019 but after a hospitalization 05/2021 he moved [facility] the [facility] to have closer nursing attention.??Sister Jyotsna involved in his care cell# [phone]??Guardian: Don (tapan met in person 09/01/21), now has Lexii (same group as don)Lab Schedule: * 10/06/2022
--- OUTSIDE RECORDS SUMMARY | 2022-11-09 23:24 | XMS_ITS | CCD ---
Author Name Unknown Organization Unknown Care Team Providers Care Pain Management Physician Name Role Phone Tapan Shirley PA-C Primary Care Provider Unavailabl e Tapan Shirley PA-C Chronic Care Management Unavaila ble Summary Purpose DataExchange Insurance Providers Payer name Policy type / Coverage type Covered alliance party ID Effective Begin Date Effective End Date [place] [id number] Unknown Unknown [place] [id number] Unknown Unknown Family history Runs in the family Diagnosis Age At Onset No Known Diseases N/A Social History Social History Element Codes Description Effec tive Dates Living arrangements Unknown Shelter 09/03/[address]: 1954337 Non-Smoker / No History of Smoking 09/02/[address]: 845187008 No Alcohol Consum ption 09/02/2020 Allergies, Adverse Reactions, Alerts Substance Reaction Codes Entered Date Inactivated Date Status LISINOPRIL RxNorm: 98257 02/12/2020 No Inactive Da te Active Metformin HCl Unknown 02/12/2020 No Inactive Cristiano e Active Problems Condition Codes Effective Dates Condition St atus Amputated toe of right foot ICD-10: S98. 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 ICD-10: Z79.4 09/01 Active Lower extremity edema ICD-10: R60.0 ICD-9: 782.3 09/01/2021 Active Onychogryposis ICD-10: L60.2 ICD-9: 703.8 09/01/2021 Active Seizure disorder ICD-10: G40.909 ICD-9: 345.90 09/01/2021 Active Stage 2 chronic kidney disea se due to type 2 diabetes mellitus ICD-10: E11.22 ICD-9: 250.40 09/01/2021 Active Type 2 diabetes mellitus wit h diabetic polyneuropathy, with long-term current use of insulin ICD-10: E11.42 ICD-9: 250.60 09/01/2021 Active Muscular pain ICD-10: M79.10 ICD-9: 729.1 08/04/2021 Active Pain of right heel ICD-10: M79.671 ICD-9: 729.5 08/04/2021 Active Coronary artery disease invo lving ewiia[place]ayp coronary artery of [place] heart, angina presence unspecified ICD-10: I25.10 ICD-9: [...] ICD-10: M10 .30 ICD-9: 274.10 09/03/2020 Active Chronic kidney disease, stag e [...] benzoyl peroxide 10 % topical cleanser RxNorm: 295442 Apply 1 Application Topical QD apply to face, wash rinse and dry once daily (may change to QOD if drying) 08/19/19 22 022 Inactive (%covered by insurance) #60ml refill 11 dx: acne Lyrica 100 mg capsule RxNorm: 452511 Take 1 Capsule(s) Oral QHS every night at bedtime Take 1 capsule by mouth once daily at bedtime 08/19/19 22 022 Inactive benzoyl peroxide 10 % topical cleanser RxNorm: 311149 Apply 1 Application Topical QD apply to face, wash rinse and dry once daily (may change to QOD if drying) 08/19/19 22 022 Inactive (%covered by insurance) #60ml refill 11 dx: acne benzoyl peroxide 10 % topical cleanser RxNorm: 858484 Apply 1 Application Topical QD apply to face, wash rinse and dry once daily (may change to QOD if drying) 08/19/19 22 022 Inactive (%covered by insurance) #60ml refill 11 dx: acne Lyrica 50 mg capsule RxNorm: 986277 Take 1 Capsule(s) Oral QAM every morning Take 1 capsule by mouth once daily 08/19/19 22 022 Inactive benzoyl peroxide 10 % topical cleanser RxNorm: 878069 Apply 1 Application Topical QD apply to face, wash rinse and dry once daily (may change to QOD if drying) 08/19/19 022 Inactive (%covered by insurance) #60ml refill 11 dx: acne Lyrica 100 mg capsule RxNorm: 142564 Take 1 Capsule(s) Oral QHS every night at bedtime Take 1 capsule by mouth once daily at bedtime 08/16/19 022 Inactive Lyrica 50 mg capsule RxNorm: 653146 Take 1 Capsule(s) Oral QAM every morning Take 1 capsule by mouth once daily 08/16/19 022 Inactive Levemir FlexTouch U-100 Insulin 100 unit/mL (3 mL) subcutaneous pen RxNorm: 141516 Inject 86 Unit(s) Subcutaneous BID 08/05/19 22 022 Inactive d/c 83units BID Lyrica 100 mg capsule RxNorm: 596175 Take 1 Capsule(s) Oral QHS every night at bedtime Take 1 capsule by mouth once daily at bedtime 07/14/19 22 Inactive Lyrica 50 mg capsule RxNorm: 429326 Take 1 Capsule(s) Oral QAM every morning Take 1 capsule by mouth once daily 07/14/19 22 Inactive Levemir FlexTouch U-100 Insulin 100 unit/mL (3 mL) subcutaneous pen RxNorm: 434404 Inject 83 Unit(s) Subcutaneous BID 07/08/19 22 [...] test strip hydralazine 50 mg tablet RxNorm: 205910 Take 1 Tablet(s) Oral QID 05/05/20 Inactive isosorbide mononitrate ER 30 mg tablet,extended release 24 hr RxNorm: 826245 Take 1 Tablet(s) Oral QD 05/05/20 No Stop Date Active venlafaxine ER 225 mg tablet,extended release 24 hr RxNorm: 830067 Take 1 Tablet(s) Oral QD 05/05/20 Inactive venlafaxine ER 225 mg tablet,extended release 24 hr RxNorm: 085540 Take 1 Tablet(s) Oral QD 05/05/20 022 Inactive hydralazine 50 mg tablet RxNorm: 648707 Take 1 Tablet(s) Oral QID 05/05/20 Inactive aspirin 81 mg tablet,delayed release RxNorm: 084473 Take 1 Tablet(s) Oral QD 03/31/20 Inactive Vitamin D2 1,250 mcg (50,000 unit) capsule RxNorm: 7297425 Take 1 Capsule(s) Oral QW once a week x 12 weeks 03/31/20 Inactive Zetia 10 mg tablet RxNorm: 440856 Take 1 Tablet(s) Oral QD 03/31/20 Inactive Vitamin D2 1,250 mcg (50,000 unit) capsule RxNorm: 4479745 Take 1 Capsule(s) Oral QW once a week 03/31/20 Inactive Zetia 10 mg tablet RxNorm: 102418 Take 1 Tablet(s) Oral QD 03/31/20 Inactive hydralazine 25 mg tablet RxNorm: 487176 Take 1 Tablet(s) Oral QID 03/31/20 Inactive hydralazine 25 mg tablet RxNorm: 416469 Take 1 Tablet(s) Oral QID 03/31/20 Inactive hydralazine 10 mg tablet RxNorm: 547403 Take 1 Tablet(s) Oral QID 03/03/20 Inactive cephalexin 500 mg tablet RxNorm: 395787 Take 1 Tablet(s) Oral QID 02/27/20 021 Inactive cephalexin 500 mg tablet RxNorm: 238902 Take 1 Tablet(s) Oral QID 02/27/20 021 Inactive lisinopril 40 mg tablet RxNorm: 456812 Take 1 Tablet(s) Oral QD 02/11/20 023 Inactive Eliquis 5 mg tablet RxNorm: 9631556 Take 1 Tablet(s) Oral BID 01/05/20 21 022 Inactive Eliquis 5 mg tablet RxNorm: 3909602 Take 2 Tablet(s) Oral QD 01/01/20 21 021 Inactive Lyrica 50 mg capsule RxNorm: 005242 Take 1 Capsule(s) Oral QAM every morning 12/24/19 021 Inactive Lyrica 100 mg capsule RxNorm: 278918 Take 1 Capsule(s) Oral QHS every night at bedtime 12/24/19 021 Inactive clotrimazole 1 % topical cream RxNorm: 613202 Apply to right foot and toes Topical BID 12/04/19 21 023 Inactive metoprolol succinate ER 200 mg tablet,extended release 24 hr RxNorm: 772177 Take 1 Tablet(s) Oral QD 12/04/19 21 023 Inactive ciprofloxacin 500 mg tablet RxNorm: 706681 Take 1 Tablet(s) Oral QD 11/30/19 021 Inactive DX ofloxacin otic drops Accu-Chek Guide test strips RxNorm: USE 1 TO CHECK GLUCOSE 4 TIMES DAILY AND NEEDED 11/15/19 21 023 Inactive Blood Glucose Test strips RxNorm: Use 1 Test Strip QID at PRN 11/05/19 21 023 Inactive E11.42 lisinopril 30 mg tablet RxNorm: 178826 Take 1 Tablet(s) Oral QD 10/30/19 21 021 Inactive lisinopril 20 mg tablet RxNorm: 957591 Take 1 Tablet(s) Oral QD 10/23/19 21 021 Inactive lisinopril 20 mg tablet RxNorm: 773537 Take 1 Tablet(s) Oral QD 10/23/19 21 Inactive lisinopril 10 mg tablet RxNorm: 577638 Take 1 Tablet(s) Oral QD 10/02/19 21 021 Inactive icosapent ethyl 1 gram capsule RxNorm: 5755462 Take 2 Capsule(s) (2 gm) Oral BID with meals 09/12/19 022 Inactive Okay to dispense one 2gm tab if you have that available. icosapent ethyl 1 gram capsule RxNorm: 2364989 Take 2 Capsule(s) Oral BID 09/12/19 21 021 Inactive Okay to dispense one 2gm tab if you have that available. amlodipine 10 mg tablet RxNorm: 301501 Take 1 Tablet(s) Oral QD 09/04/19 022 Inactive aspirin 81 mg tablet,delayed release RxNorm: 089719 Take 1 Tablet(s) Oral QD 09/04/19 21 Inactive Levemir FlexTouch U-100 Insulin 100 unit/mL (3 mL) subcutaneous pen RxNorm: 935361 Inject 150 Unit(s) Subcutaneous BID 09/04/19 Inactive venlafaxine ER 150 mg tablet,extended release 24 hr RxNorm: 742603 Take 1 Tablet(s) Oral QD 09/04/19 021 Inactive clotrimazole-betame thasone 1 %-0.05 % topical cream RxNorm: 591889 Apply to rash on red area on left abdomen/chest Topical BID 08/10/19 21 021 Inactive amlodipine 5 mg tablet RxNorm: 196684 Take 1 Tablet(s) Oral QD 07/31/19 21 Inactive cephalexin 500 mg tablet RxNorm: 627190 Take 1 Tablet(s) Oral BID BID - Twice Daily 07/31/19 21 021 Inactive Start 08/01/20 pantoprazole 40 mg tablet,delayed release RxNorm: 293387 Take 1 Tablet(s) Oral QAM every morning 07/08/19 21 022 Inactive senna 8.6 mg tablet RxNorm: 190331 Take 1 Tablet(s) Oral QD 07/08/19 21 022 Inactive pravastatin 80 mg tablet RxNorm: 874778 Take 1 Tablet(s) Oral QHS every night at bedtime 07/08/19 022 Inactive clotrimazole 1 % topical cream RxNorm: 926888 Apply to bilateral groin areas Topical BID 07/08/19 022 Inactive carbamazepine 200 mg tablet RxNorm: 547216 Take 1 Tablet(s) Oral BID 07/08/19 21 022 Inactive torsemide 20 mg tablet RxNorm: 803867 Take 1 Tablet(s) Oral QD 07/08/19 023 Inactive clopidogrel 75 mg tablet RxNorm: 141479 Take 1 Tablet(s) Oral QD 07/08/19 021 Inactive Blood Glucose Test strips RxNorm: Use 1 Test Strip QID at PRN 07/08/19 Inactive E11.42 Novolog Flexpen U-100 Insulin aspart 100 unit/mL (3 mL) subcutaneous RxNorm: 4191524 Administer per sliding scale Milliliter(s) Subcutaneous TID 151-200: 10 u; 201-250: 20 u; 251-300: 30 u; 301-350: 40 u; 351-400: 50 u. 07/08/19 022 Inactive lisinopril 5 mg tablet RxNorm: 481636 Take 1 Tablet(s) Oral QD 07/08/19 021 Inactive Novolog Flexpen U-100 Insulin aspart 100 unit/mL (3 mL) subcutaneous RxNorm: 0929582 Inject 85 Unit(s) Subcutaneous TID 07/08/19 022 Inactive metoprolol succinate ER 200 mg tablet,extended release 24 hr RxNorm: 428768 Take 1 Tablet(s) Oral QD 07/08/19 Inactive Vitamin D3 25 mcg (1,000 unit) tablet RxNorm: 371185 Take 1 Tablet(s) Oral QD 07/08/19 021 Inactive isosorbide dinitrate 30 mg tablet RxNorm: 812944 Take 1 Tablet(s) Oral QD 07/08/19 21 021 Inactive Levemir FlexTouch U-100 Insulin 100 unit/mL (3 mL) subcutaneous pen RxNorm: 361627 Inject 140 Unit(s) Subcutaneous BID 07/08/19 21 021 Inactive venlafaxine 75 mg tablet RxNorm: 469293 Take 1 Tablet(s) Oral QD 07/08/19 Inactive acetaminophen 500 mg tablet RxNorm: 968963 Take 1 Tablet(s) Oral TID as needed for headache 06/18/19 Inactive acetaminophen 500 mg tablet RxNorm: 066651 Take 1 Tablet(s) Oral TID as needed for headache 06/18/19 Inactive Lyrica 100 mg capsule RxNorm: 206201 Take 1 Capsule(s) Oral QHS every night at bedtime 06/11/19 21 021 Inactive Lyrica 50 mg capsule RxNorm: 796380 Take 1 Capsule(s) Oral QAM every morning 06/10/19 21 021 Inactive hydrocortisone 2.5 % topical cream RxNorm: 722287 Apply to bilateral groin creases Topical BID 05/15/20 20 021 Inactive clotrimazole 1 % topical cream RxNorm: 487529 Apply to bilateral groin areas Topical BID 05/15/20 20 021 Inactive Lyrica 50 mg capsule RxNorm: 421634 Take 1 Capsule(s) Oral QAM every morning 05/14/20 20 020 Inactive Lyrica 100 mg capsule RxNorm: 004169 Take 1 Capsule(s) Oral QHS every night [...] Inactive Nystop 100,000 unit/gram topical powder RxNorm: 404217 Apply to abd folds, under breasts and L side of groin Topical BID x 14 days, then BID PRN 04/08/20 20 Inactive dx: yeast dermatitis Lyrica 100 mg capsule RxNorm: 301801 Take 1 Capsule(s) Oral QHS every night at bedtime 03/13/20 20 Inactive Lyrica 50 mg capsule RxNorm: 154801 Take 1 Capsule(s) Oral QAM every morning 03/13/20 20 Inactive ketoconazole 2 % shampoo RxNorm: 323794 Apply Topical two times a week with showers 03/11/20 20 Inactive cholecalciferol (vitamin D3) 50 mcg (2,000 unit) tablet RxNorm: 345389 Take 1 Tablet(s) Oral QD 03/11/20 20 Inactive Zetia 10 mg tablet RxNorm: 050569 Take 1 Tablet(s) Oral QD 03/07/20 20 021 Inactive Zetia 10 mg tablet RxNorm: 565722 Take 1 Tablet(s) Oral QD 03/07/20 20 Inactive Lyrica 50 mg capsule RxNorm: 821702 Take 1 Capsule(s) Oral QAM every morning 02/15/20 20 Inactive Lyrica 100 mg capsule RxNorm: 632293 Take 1 Capsule(s) Oral QHS every night at bedtime 02/15/20 Inactive Lyrica 100 mg capsule RxNorm: 988138 Take 1 Capsule(s) Oral QHS every night at bedtime 02/15/20 20 Inactive Lyrica 50 mg capsule RxNorm: 633971 Take 1 Capsule(s) Oral QAM every morning 02/15/20 020 Inactive venlafaxine ER 75 mg capsule,extended release 24 hr RxNorm: 153203 Take 3 Capsule(s) Oral QD 06/12/19 22 Active polyethylene glycol 3350 17 gram/dose oral powder RxNorm: 746792 Take 17=1 capful Gram(s) Oral BID as needed mix with 4-8oz of liquid 06/12/19 22 Active Levemir FlexTouch U-100 Insulin 100 unit/mL (3 mL) subcutaneous pen RxNorm: 047055 Inject 80 Unit(s) Subcutaneous BID 07/14/19 23 023 Inactive loperamide 2 mg capsule RxNorm: 244654 Take 1 Capsule(s) Oral QID as needed 06/12/19 22 Active Novolog Flexpen U-100 Insulin aspart 100 unit/mL (3 mL) subcutaneous RxNorm: 6460345 Insert 30 Unit(s) Subcutaneous TID with meals [...] Date Referral: [facility] WPtel: [address], [address] [id number] [place] Referral Records Received 09/21/2022 Referral: [facility] WPtel: [address] [id number] [place] Referral Completed 05/28/2021 Referral: General Cardiology Referral Complet ed 01/03/2021 Referral: General Psychologist Referral Close d Instructions Comment Date Leonid is a?? Male being seen living at [facility]. Initial BPS visit 01/2020. PMHx including DMII, CAD w/ 5 stents, Depression, Seizure Disorder and CKD stage 3. He moved into [facility] in 12/2019 but after a hospitalization 05/2021 he moved to the [facility] to have closer nursing attention.??Sister Jyotsna involved in his care cell# [phone]??Guardian: Don (tapan met in person 09/01/21), now has Lexii (same group as don)Lab Schedule: * 10/06/2022
--- OUTSIDE RECORDS SUMMARY | 2022-11-09 23:24 | XMS_ITS | CCD ---
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 Name Role Phone Tapan Shirley PA-C Primary Care Provider Unavailabl e Tapan Shirley PA-C Chronic Care Management Unavaila ble Summary Purpose DataExchange Insurance Providers Payer name Policy type / Coverage type Covered constitution party ID Effective Begin Date Effective End Date Medicare [place] Medicare Part B [id number] Unknown Unknown Medicaid [place] Medicare Part B [id number] Unknown Unknown Family history Runs in the family Diagnosis Age At Onset No Known Diseases N/A Social History Social History Element Codes Description Effec tive Dates Living arrangements Unknown Senior Care 09/03/[address]: 4925673 Non-Smoker / No History of Smoking 09/02/[address]: 299062644 No Alcohol Consum ption 09/02/2020 Allergies, Adverse Reactions, Alerts Substance Reaction Codes Entered Date Inactivated Date Status LISINOPRIL RxNorm: 58011 02/12/2020 No Inactive Da te Active Metformin HCl Unknown 02/12/2020 No Inactive Cristiano e Active Problems Condition Codes Effective Dates Condition St atus Amputated toe of right foot ICD-10: S98. 131A ICD-9: 895.0 09/01/2021 Active Hyperlipidemia associated wi th type 2 diabetes mellitus ICD-10: E11.69 ICD-9: 250.80 09/01/2021 Active Hypertension associated with diabetes ICD-10: E11.59 ICD-9: 250.80 09/01/2021 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 ICD-10: Z79.4 09/01 [...] 08/04/2021 Active Coronary artery disease invo lving [place] coronary artery of [place] heart, angina presence unspecified ICD-10: I25.10 ICD-9: [...] benzoyl peroxide 10 % topical cleanser RxNorm: 656992 Apply 1 Application Topical QD apply to face, wash rinse and dry once daily (may change to QOD if drying) 08/19/1903/2 022 Inactive (%covered by insurance) #60ml refill 11 dx: acne benzoyl peroxide 10 % topical cleanser RxNorm: 989789 Apply 1 Application Topical QD apply to face, wash rinse and dry once daily (may change to QOD if drying) 08/19/19 22 022 Inactive (%covered by insurance) #60ml refill 11 dx: acne benzoyl peroxide 10 % topical cleanser RxNorm: 546545 Apply 1 Application Topical QD apply to face, wash rinse and dry once daily (may change to QOD if drying) 08/19/19 22 022 Inactive (%covered by insurance) #60ml refill 11 dx: acne Lyrica 100 mg capsule RxNorm: 994450 Take 1 Capsule(s) Oral QHS every night at bedtime Take 1 capsule by mouth once daily at bedtime 08/19/19 22 022 Inactive Lyrica 50 mg capsule RxNorm: 838767 Take 1 Capsule(s) Oral QAM every morning Take 1 capsule by mouth once daily 08/19/19 22 022 Inactive benzoyl peroxide 10 % topical cleanser RxNorm: 645544 Apply 1 Application Topical QD apply to face, wash rinse and dry once daily (may change to QOD if drying) 08/19/19 22 022 Inactive (%covered by insurance) #60ml refill 11 dx: acne Lyrica 100 mg capsule RxNorm: 059220 Take 1 Capsule(s) Oral QHS every night at bedtime Take 1 capsule by mouth once daily at bedtime 08/16/19 022 Inactive Lyrica 50 mg capsule RxNorm: 666596 Take 1 Capsule(s) Oral QAM every morning Take 1 capsule by mouth once daily 08/16/19 22 022 Inactive Levemir FlexTouch U-100 Insulin 100 unit/mL (3 mL) subcutaneous pen RxNorm: 701500 Inject 86 Unit(s) Subcutaneous BID 08/05/19 22 022 Inactive d/c 83units BID Lyrica 100 mg capsule RxNorm: 327206 Take 1 Capsule(s) Oral QHS every night at bedtime Take 1 capsule by mouth once daily at bedtime 07/14/19 22 Inactive Lyrica 50 mg capsule RxNorm: 901535 Take 1 Capsule(s) Oral QAM every morning Take 1 capsule by mouth once daily 07/14/19 22 Inactive Levemir FlexTouch U-100 Insulin 100 unit/mL (3 mL) subcutaneous pen RxNorm: 257627 Inject 83 Unit(s) Subcutaneous BID 07/08/19 22 [...] test strip hydralazine 50 mg tablet RxNorm: 210729 Take 1 Tablet(s) Oral QID 05/05/20 022 Inactive isosorbide mononitrate ER 30 mg tablet,extended release 24 hr RxNorm: 793477 Take 1 Tablet(s) Oral QD 05/05/20 No Stop Date Active venlafaxine ER 225 mg tablet,extended release 24 hr RxNorm: 688925 Take 1 Tablet(s) Oral QD 05/05/20 Inactive venlafaxine ER 225 mg tablet,extended release 24 hr RxNorm: 658745 Take 1 Tablet(s) Oral QD 05/05/20 022 Inactive hydralazine 50 mg tablet RxNorm: 622451 Take 1 Tablet(s) Oral QID 05/05/20 Inactive aspirin 81 mg tablet,delayed release RxNorm: 383003 Take 1 Tablet(s) Oral QD 03/31/20 022 Inactive Vitamin D2 1,250 mcg (50,000 unit) capsule RxNorm: 6052805 Take 1 Capsule(s) Oral QW once a week x 12 weeks 03/31/20 022 Inactive Zetia 10 mg tablet RxNorm: 000881 Take 1 Tablet(s) Oral QD 03/31/20 Inactive Vitamin D2 1,250 mcg (50,000 unit) capsule RxNorm: 1730788 Take 1 Capsule(s) Oral QW once a week 03/31/20 Inactive Zetia 10 mg tablet RxNorm: 949692 Take 1 Tablet(s) Oral QD 03/31/20 Inactive hydralazine 25 mg tablet RxNorm: 979544 Take 1 Tablet(s) Oral QID 03/31/20 021 Inactive hydralazine 25 mg tablet RxNorm: 902189 Take 1 Tablet(s) Oral QID 03/31/20 021 Inactive hydralazine 10 mg tablet RxNorm: 086872 Take 1 Tablet(s) Oral QID 03/03/20 021 Inactive cephalexin 500 mg tablet RxNorm: 623206 Take 1 Tablet(s) Oral QID 02/27/20 021 Inactive cephalexin 500 mg tablet RxNorm: 041401 Take 1 Tablet(s) Oral QID 02/27/20 021 Inactive lisinopril 40 mg tablet RxNorm: 846944 Take 1 Tablet(s) Oral QD 02/11/20 023 Inactive Eliquis 5 mg tablet RxNorm: 9892983 Take 1 Tablet(s) Oral BID 01/05/20 21 022 Inactive Eliquis 5 mg tablet RxNorm: 2254786 Take 2 Tablet(s) Oral QD 01/01/20 21 021 Inactive Lyrica 50 mg capsule RxNorm: 171316 Take 1 Capsule(s) Oral QAM every morning 12/24/19 021 Inactive Lyrica 100 mg capsule RxNorm: 231485 Take 1 Capsule(s) Oral QHS every night at bedtime 12/24/19 021 Inactive clotrimazole 1 % topical cream RxNorm: 204149 Apply to right foot and toes Topical BID 12/04/19 21 023 Inactive metoprolol succinate ER 200 mg tablet,extended release 24 hr RxNorm: 447272 Take 1 Tablet(s) Oral QD 12/04/19 023 Inactive ciprofloxacin 500 mg tablet RxNorm: 405087 Take 1 Tablet(s) Oral QD 11/30/19 021 Inactive DX ofloxacin otic drops Accu-Chek Guide test strips RxNorm: USE 1 TO CHECK GLUCOSE 4 TIMES DAILY AND NEEDED 11/15/19 21 023 Inactive Blood Glucose Test strips RxNorm: Use 1 Test Strip QID at PRN 11/05/19 21 023 Inactive E11.42 lisinopril 30 mg tablet RxNorm: 364533 Take 1 Tablet(s) Oral QD 10/30/19 21 021 Inactive lisinopril 20 mg tablet RxNorm: 549855 Take 1 Tablet(s) Oral QD 10/23/19 21 021 Inactive lisinopril 20 mg tablet RxNorm: 113432 Take 1 Tablet(s) Oral QD 10/23/19 21 021 Inactive lisinopril 10 mg tablet RxNorm: 615758 Take 1 Tablet(s) Oral QD 10/02/19 21 021 Inactive icosapent ethyl 1 gram capsule RxNorm: 0720122 Take 2 Capsule(s) (2 gm) Oral BID with meals 09/12/19 022 Inactive Okay to dispense one 2gm tab if you have that available. icosapent ethyl 1 gram capsule RxNorm: 1377664 Take 2 Capsule(s) Oral BID 09/12/19 021 Inactive Okay to dispense one 2gm tab if you have that available. amlodipine 10 mg tablet RxNorm: 041046 Take 1 Tablet(s) Oral QD 09/04/19 Inactive aspirin 81 mg tablet,delayed release RxNorm: 253313 Take 1 Tablet(s) Oral QD 09/04/19 Inactive Levemir FlexTouch U-100 Insulin 100 unit/mL (3 mL) subcutaneous pen RxNorm: 464007 Inject 150 Unit(s) Subcutaneous BID 09/04/19 21 022 Inactive venlafaxine ER 150 mg tablet,extended release 24 hr RxNorm: 371441 Take 1 Tablet(s) Oral QD 09/04/19 021 Inactive clotrimazole-betame thasone 1 %-0.05 % topical cream RxNorm: 205879 Apply to rash on red area on left abdomen/chest Topical BID 08/10/19 21 Inactive amlodipine 5 mg tablet RxNorm: 479432 Take 1 Tablet(s) Oral QD 07/31/19 21 021 Inactive cephalexin 500 mg tablet RxNorm: 571834 Take 1 Tablet(s) Oral BID BID - Twice Daily 07/31/19 21 021 Inactive Start 08/01/20 pantoprazole 40 mg tablet,delayed release RxNorm: 544467 Take 1 Tablet(s) Oral QAM every morning 07/08/19 21 022 Inactive senna 8.6 mg tablet RxNorm: 195342 Take 1 Tablet(s) Oral QD 07/08/19 21 022 Inactive pravastatin 80 mg tablet RxNorm: 768259 Take 1 Tablet(s) Oral QHS every night at bedtime 07/08/19 022 Inactive clotrimazole 1 % topical cream RxNorm: 664945 Apply to bilateral groin areas Topical BID 07/08/19 21 022 Inactive carbamazepine 200 mg tablet RxNorm: 804962 Take 1 Tablet(s) Oral BID 07/08/19 21 022 Inactive torsemide 20 mg tablet RxNorm: 980745 Take 1 Tablet(s) Oral QD 07/08/19 21 023 Inactive clopidogrel 75 mg tablet RxNorm: 870198 Take 1 Tablet(s) Oral QD 07/08/19 021 Inactive Blood Glucose Test strips RxNorm: Use 1 Test Strip QID at PRN 07/08/19 Inactive E11.42 Novolog Flexpen U-100 Insulin aspart 100 unit/mL (3 mL) subcutaneous RxNorm: 5419342 Administer per sliding scale Milliliter(s) Subcutaneous TID 151-200: 10 u; 201-250: 20 u; 251-300: 30 u; 301-350: 40 u; 351-400: 50 u. 07/08/19 022 Inactive lisinopril 5 mg tablet RxNorm: 719696 Take 1 Tablet(s) Oral QD 07/08/19 021 Inactive Novolog Flexpen U-100 Insulin aspart 100 unit/mL (3 mL) subcutaneous RxNorm: 6279973 Inject 85 Unit(s) Subcutaneous TID 07/08/19 21 022 Inactive metoprolol succinate ER 200 mg tablet,extended release 24 hr RxNorm: 797110 Take 1 Tablet(s) Oral QD 07/08/19 021 Inactive Vitamin D3 25 mcg (1,000 unit) tablet RxNorm: 763136 Take 1 Tablet(s) Oral QD 07/08/19 021 Inactive isosorbide dinitrate 30 mg tablet RxNorm: 336444 Take 1 Tablet(s) Oral QD 07/08/19 021 Inactive Levemir FlexTouch U-100 Insulin 100 unit/mL (3 mL) subcutaneous pen RxNorm: 922924 Inject 140 Unit(s) Subcutaneous BID 07/08/19 21 021 Inactive venlafaxine 75 mg tablet RxNorm: 557766 Take 1 Tablet(s) Oral QD 07/08/19 21 021 Inactive acetaminophen 500 mg tablet RxNorm: 534732 Take 1 Tablet(s) Oral TID as needed for headache 06/18/19 Inactive acetaminophen 500 mg tablet RxNorm: 766519 Take 1 Tablet(s) Oral TID as needed for headache 06/18/19 21 021 Inactive Lyrica 100 mg capsule RxNorm: 440393 Take 1 Capsule(s) Oral QHS every night at bedtime 06/11/19 21 021 Inactive Lyrica 50 mg capsule RxNorm: 967114 Take 1 Capsule(s) Oral QAM every morning 06/10/19 21 021 Inactive hydrocortisone 2.5 % topical cream RxNorm: 188505 Apply to bilateral groin creases Topical BID 05/15/20 20 021 Inactive clotrimazole 1 % topical cream RxNorm: 915479 Apply to bilateral groin areas Topical BID 05/15/20 20 021 Inactive Lyrica 50 mg capsule RxNorm: 589736 Take 1 Capsule(s) Oral QAM every morning 05/14/20 20 020 Inactive Lyrica 100 mg capsule RxNorm: 405736 Take 1 Capsule(s) Oral QHS every night [...] Inactive Nystop 100,000 unit/gram topical powder RxNorm: 328288 Apply to abd folds, under breasts and L side of groin Topical BID x 14 days, then BID PRN 04/08/20 20 Inactive dx: yeast dermatitis Lyrica 100 mg capsule RxNorm: 412471 Take 1 Capsule(s) Oral QHS every night at bedtime 03/13/20 20 Inactive Lyrica 50 mg capsule RxNorm: 924516 Take 1 Capsule(s) Oral QAM every morning 03/13/20 20 Inactive ketoconazole 2 % shampoo RxNorm: 915473 Apply Topical two times a week with showers 03/11/20 20 Inactive cholecalciferol (vitamin D3) 50 mcg (2,000 unit) tablet RxNorm: 774758 Take 1 Tablet(s) Oral QD 03/11/20 20 Inactive Zetia 10 mg tablet RxNorm: 988860 Take 1 Tablet(s) Oral QD 03/07/20 20 021 Inactive Zetia 10 mg tablet RxNorm: 916388 Take 1 Tablet(s) Oral QD 03/07/20 20 Inactive Lyrica 50 mg capsule RxNorm: 163317 Take 1 Capsule(s) Oral QAM every morning 02/15/20 20 Inactive Lyrica 100 mg capsule RxNorm: 796243 Take 1 Capsule(s) Oral QHS every night at bedtime 02/15/20 20 Inactive Lyrica 100 mg capsule RxNorm: 116429 Take 1 Capsule(s) Oral QHS every night at bedtime 02/15/20 20 Inactive Lyrica 50 mg capsule RxNorm: 640994 Take 1 Capsule(s) Oral QAM every morning 02/15/20 20 Inactive venlafaxine ER 75 mg capsule,extended release 24 hr RxNorm: 456398 Take 3 Capsule(s) Oral QD 06/12/19 22 Active polyethylene glycol 3350 17 gram/dose oral powder RxNorm: 322665 Take 17=1 capful Gram(s) Oral BID as needed mix with 4-8oz of liquid 06/12/19 22 Active Levemir FlexTouch U-100 Insulin 100 unit/mL (3 mL) subcutaneous pen RxNorm: 222708 Inject 80 Unit(s) Subcutaneous BID 07/14/19 23 023 Inactive loperamide 2 mg capsule RxNorm: 758732 Take 1 Capsule(s) Oral QID as needed 06/12/19 22 Active Novolog Flexpen U-100 Insulin aspart 100 unit/mL (3 mL) subcutaneous RxNorm: 9658359 Insert 30 Unit(s) Subcutaneous TID with meals [...] Blood Urea Nitrogen (BUN) 26 mg/dL 09/20/19 22 Unknown Basic Metabolic Panel (BMP) BMP BUN/CREATININE RATIO 25.88 ratio 09/20/19 22 Unknown Basic Metabolic Panel (BMP) BMP Calcium (Ca) 24549-0 8.6 mg/dL 09/20/19 22 Unknown Basic Metabolic Panel (BMP) BMP Carbon Dioxide (ECO2) 26 mEq/L 09/20/19 22 Unknown Basic Metabolic Panel (BMP) BMP Chloride (Cl) 2075-0 106 mmol/L 09/20/19 22 Unknown Basic Metabolic Panel (BMP) BMP Creatinine 2160-0 1.02 mg/dL 09/20/19 22 Unknown Basic Metabolic Panel (BMP) BMP eGFR 79.00 mL/min/1.7 3m2 09/20/19 22 Unknown Basic Metabolic Panel (BMP) BMP eGFR 24176-6 95.00 mL/min/1.7 3m2 09/20/19 22 Unknown Basic Metabolic Panel (BMP) BMP Glucose 193 mg/dL 09/20/19 22 Unknown Basic Metabolic Panel (BMP) BMP Potassium (K) 2823-3 4.4 mmol/L 09/20/19 22 Unknown Basic Metabolic Panel (BMP) BMP Sodium (Na) 2951-2 143 mmol/L 09/20/19 22 Unknown Hemoglobin A1c HEMOGLOBA Hemoglobin A1c 97845-1 9.1 %A1c 09/20/19 22 Unknown Lipid Panel (LP) LIPIDPAN CHOLESTEROL, TOTAL 32795-8 112 mg/dL 09/20/19 22 Unknown Lipid Panel (LP) LIPIDPAN HDL CHOLESTEROL 2085-9 26.8 mg /dL 09/20/19 22 Unknown Lipid Panel (LP) LIPIDPAN LDL CHOLESTEROL CALCULATED 91456-1 35 ppm 09/20/19 22 Unknown Lipid Panel [...] CBC with Differential / Platelets CBCDIFF MPV 95179-8 9.9 fL 09/20/19 22 Unknown CBC with [...] 09/20/19 22 Unknown PDFReport PDFReport PDFReport 09/19/19 Unknown Procedures Procedure Codes Date SYS BP > OR = 140 CPT-4: G8753 09/01/2021 CUI BP LESS 90 CPT-4: G8754 09/01/2021 DEBRIDE NAIL 6 OR MORE CPT-4: 84538 2 Vital Signs Date Vital 09/01/2021 Blood Pressure 1: 144/70 Code: 8 480-6 Temperature: 37.0 (C) / 98.6 (F) Reason For Visit No Reason For Visit data Encounters Encounter Performer Location Location Address Codes Date (02149) DOMICIL VISIT EST PAT Diagnosis: Hyperlipidemia associated with type 2 diabetes mellitus[ICD10: E11.69] Diagnosis: Hypertension associated with diabetes[ICD10: E11.59] Diagnosis: Stage 2 chronic 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[ICD10: E11.22] Diagnosis: Type 2 diabetes mellitus with diabetic polyneuropathy, with long-term current use of insulin[ICD10: E11.42] Diagnosis: lobsterman (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 insulin[ICD10: Z79.4] Diagnosis: Lower extremity edema[ICD10: R60.0] Diagnosis: Seizure disorder[ICD10: G40.909] Diagnosis: Amputated toe of right foot[ICD10: S98.131A] Diagnosis: Onychogryposis[ICD10: L60.2] Tapan Shirley [facility] [address] [place] [address] CPT-4: 49915 09/01/2021 Plan of Care Planned Activity Notes Codes Status Date Referral: [facility] WPtel: [address], [address] [id number] [place] Referral Records Received 09/21/2022 Care Plan: CARBAMAZEPINE, FREE (TEGRETOL) Pending 09/02/2021 Patient Education: Patient M edication Summary Completed 09/01/2021 Patient Education: Influenza Vaccine Completed 09/01/2021 Referral: [facility] WPtel: [address] [id number] [place] Referral Completed 05/28/2021 Referral: General Cardiology Referral Complet ed 01/03/2021 Referral: General Psychologist Referral Close d Instructions Comment Date Leonid is a?? Male being seen living at [facility]. Initial BPS visit 01/2020. PMHx including DMII, CAD w/ 5 stents, Depression, Seizure Disorder and CKD stage 3. He moved into [facility] in 12/2019 but after a hospitalization 05/2021 he moved to the [facility] to have closer nursing attention.??Sister Jyotsna involved in his care cell# [phone]??Guardian: Don (tapan met in person 09/01/21), now has Lexii (same group as don)Lab Schedule: * 10/06/2022 Epilepsy Checking tegretol level today halfway (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 insulin 2/2 DM2 Amputated [...] (*4*) on right foot. Medical grade nail clippers and electric dremel used to significantly reduce length & thickness. Anti-fungal treatment options reviewed, discussion deferred as treatment not appropriate or beneficial to patient. Patient tolerated procedure well. . 09/01/2021
--- OUTSIDE RECORDS SUMMARY | 2022-11-09 23:25 | XMS_ITS | CCD ---
Author Name Tapan Shirley PA-C Address [address] [facility] [address] [place] [address] Phone Organization [facility] Phone Care Team Providers Care Director Of Rehabilitative Services Name Role Phone Tapan Shirley PA-C Primary Care Provider Unavailabl e Tapan Shirley PA-C Chronic Care Management Unavaila ble Summary Purpose DataExchange Insurance Providers Payer name Policy type / Coverage type Covered green party ID Effective Begin Date Effective End Date [place] B [id number] Unknown Unknown [place] Part [place] [id number] Unknown Unknown Family history Sister Brittany Suggs Diagnosis Age At Onset No Family Disease Entered N/A Runs in the family Diagnosis Age At Onset No Known Diseases N/A Sister Blanka Mcduffie Diagnosis Age At Onset No Family Disease Entered N/A Social History Social History Element Codes Description Effec tive Dates Marital status Unknown Single 10/07/2021 Living arrangements Unknown Custodial 09/03/[address]: 9459617 Non-Smoker / No History of Smoking 09/02/[address]: 746813613 No Alcohol Consum ption 09/02/2020 Allergies, Adverse Reactions, Alerts Substance Reaction Codes Entered Date Inactivated Date Status LISINOPRIL RxNorm: 87167 02/12/2020 No Inactive Da te Active Metformin HCl Unknown 02/12/2020 No Inactive Cristiano e Active Problems Condition Codes Effective Dates Condition St atus History of anemia due to CKD ICD-10: N18 .9 ICD-9: 585.9 10/07/2021 Active Hyperlipidemia associated wi th type 2 diabetes mellitus ICD-10: E11.69 ICD-9: 250.80 10/07/2021 Active Hypertension associated with diabetes ICD-10: E11.59 ICD-9: 250.80 10/07/2021 Active Lower extremity edema ICD-10: R60.0 ICD-9: 782.3 10/07/2021 Active Preventative health care ICD-10: Z00.00 ICD-9: V70.0 10/07/2021 Active Stage 2 chronic kidney disease ICD-10: N 18.2 ICD-9: 585.2 10/07/2021 Active Stage 2 chronic kidney disea se due to type 2 diabetes mellitus ICD-10: E11.22 ICD-9: 250.40 10/07/2021 Active Type 2 diabetes mellitus wit h diabetic polyneuropathy, with long-term current use of insulin ICD-10: E11.42 ICD-9: 250.60 10/07/2021 Active Amputated toe of right foot ICD-10: S98. 131A ICD-9: 895.0 09/01/2021 Active penitentiary (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 insulin ICD-10: Z79.4 09/01 Active Onychogryposis ICD-10: L60.2 ICD-9: 703.8 09/01/2021 Active Seizure disorder ICD-10: G40.909 ICD-9: 345.90 09/01/2021 Active Muscular pain ICD-10: M79.10 ICD-9: 729.1 08/04/2021 Active Pain of right heel ICD-10: M79.671 ICD-9: 729.5 08/04/2021 Active Coronary artery disease invo lving [place] coronary artery of [place] heart, angina presence unspecified ICD-10: I25.10 ICD-9: 414.01 07/08/2021 Active DVT (deep venous thrombosis) ICD-10: I82 .409 ICD-9: 453.40 07/08/2021 Active Encounter for immunization ICD-10: Z23 ICD-9: V03.89 06/18/2021 Active Candidiasis, intertrigo ICD-10: B37.2 ICD-9: 112.3 06/10/2021 Active Depression ICD-10: F32.9 ICD-9: 311 [...] pedis ICD-10: B35.3 ICD-9: 110.4 12/31/2020 Resolved Secondary hypertension ICD-10: I15.9 ICD-9: [...] 50 mcg/0.5 mL intramuscular suspension, kit RxNorm: 6044933 Administer 1/2 Milliliter(s) Intramuscular one time Nursing please administer upon arrival and once administered 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, supervisor 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 10/09/19 22 022 Inactive shingrix step 1 Shingrix (PF) 50 mcg/0.5 mL intramuscular suspension, kit RxNorm: 8689437 Administer 1/2 Milliliter(s) Intramuscular one time Nursing please administer upon arrival and once administered 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, supervisor 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 10/09/19 22 022 Inactive shingrix step 1 tetanus,diphtheria toxoid ped (PF) 5 Lf unit-25 Lf unit/0.5 mL IM susp RxNorm: 28 Inject 1 Intramuscular once ADMINISTER PER CDC GUIDELINES 10/08/19 22 022 Inactive Tdap dx: tetanus prophylaxis, please dispense syringe and needle Novolog Flexpen U-100 Insulin aspart 100 unit/mL (3 mL) subcutaneous RxNorm: 8664865 Inject 10 Unit(s) Subcutaneous QHS every night at bedtime with nighttime snack 10/08/19 22 022 Inactive Shingrix (PF) 50 mcg/0.5 mL intramuscular suspension, kit RxNorm: 4382589 ADMINISTER 2-DOSE SERIES PER CDC GUIDELINES 10/08/19 22 022 Inactive Novolog Flexpen U-100 Insulin aspart 100 unit/mL (3 mL) subcutaneous RxNorm: 2003698 Inject 36 Unit(s) Subcutaneous TID in addition to sliding scale 10/08/19 22 022 Inactive cholecalciferol (vitamin D3) 1,250 mcg (50,000 unit) capsule RxNorm: 207694 Take 1 Capsule(s) Oral QW once a week 10/08/19 22 No Stop Date Active tetanus,diphtheria toxoid ped (PF) 5 Lf unit-25 Lf unit/0.5 mL IM susp RxNorm: 28 Inject 1 Intramuscular once ADMINISTER PER CDC GUIDELINES 10/08/19 22 022 Active Tdap dx: tetanus prophylaxis, please dispense syringe and needle Shingrix (PF) 50 mcg/0.5 mL intramuscular suspension, kit RxNorm: 3085606 ADMINISTER 2-DOSE SERIES PER CDC GUIDELINES 10/08/19 22 Active Novofine Autocover 30 gauge x 1/3 needle RxNorm: Use 1 Miscellaneous UD as directed Use 1 needle as directed to administer insulin 5 times a day Dx:E11.42. 10/03/19 Inactive ok to substitute with any covered alternative pen needle benzoyl peroxide 10 % topical cleanser RxNorm: 270065 Apply 1 Application Topical QD apply to face, wash rinse and dry once daily (may change to QOD if drying) 08/19/19 022 Inactive (%covered by insurance) #60ml refill 11 dx: acne Lyrica 100 mg capsule RxNorm: 436958 Take 1 Capsule(s) Oral QHS every night at bedtime Take 1 capsule by mouth once daily at bedtime 08/19/19 022 Inactive benzoyl peroxide 10 % topical cleanser RxNorm: 332394 Apply 1 Application Topical QD apply to face, wash rinse and dry once daily (may change to QOD if drying) 08/19/19 22 022 Inactive (%covered by insurance) #60ml refill 11 dx: acne benzoyl peroxide 10 % topical cleanser RxNorm: 135578 Apply 1 Application Topical QD apply to face, wash rinse and dry once daily (may change to QOD if drying) 08/19/19 22 022 Inactive (%covered by insurance) #60ml refill 11 dx: acne Lyrica 50 mg capsule RxNorm: 098339 Take 1 Capsule(s) Oral QAM every morning Take 1 capsule by mouth once daily 08/19/19 22 022 Inactive benzoyl peroxide 10 % topical cleanser RxNorm: 476425 Apply 1 Application Topical QD apply to face, wash rinse and dry once daily (may change to QOD if drying) 08/19/19 22 022 Inactive (%covered by insurance) #60ml refill 11 dx: acne Lyrica 100 mg capsule RxNorm: 206397 Take 1 Capsule(s) Oral QHS every night at bedtime Take 1 capsule by mouth once daily at bedtime 08/16/19 22 022 Inactive Lyrica 50 mg capsule RxNorm: 487650 Take 1 Capsule(s) Oral QAM every morning Take 1 capsule by mouth once daily 08/16/19 22 022 Inactive Levemir FlexTouch U-100 Insulin 100 unit/mL (3 mL) subcutaneous pen RxNorm: 146369 Inject 86 Unit(s) Subcutaneous BID 08/05/19 22 022 Inactive d/c 83units BID Lyrica 100 mg capsule RxNorm: 053078 Take 1 Capsule(s) Oral QHS every night at bedtime Take 1 capsule by mouth once daily at bedtime 07/14/19 22 022 Inactive Lyrica 50 mg capsule RxNorm: 174310 Take 1 Capsule(s) Oral QAM every morning Take 1 capsule by mouth once daily 07/14/19 22 022 Inactive Levemir FlexTouch U-100 Insulin 100 unit/mL (3 mL) subcutaneous pen RxNorm: 227297 Inject 83 Unit(s) Subcutaneous BID 07/08/19 22 [...] test strip hydralazine 50 mg tablet RxNorm: 107453 Take 1 Tablet(s) Oral QID 05/05/20 21 Inactive isosorbide mononitrate ER 30 mg tablet,extended release 24 hr RxNorm: 791794 Take 1 Tablet(s) Oral QD 05/05/20 No Stop Date Active venlafaxine ER 225 mg tablet,extended release 24 hr RxNorm: 238769 Take 1 Tablet(s) Oral QD 05/05/20 Inactive venlafaxine ER 225 mg tablet,extended release 24 hr RxNorm: 637848 Take 1 Tablet(s) Oral QD 05/05/20 Inactive hydralazine 50 mg tablet RxNorm: 142972 Take 1 Tablet(s) Oral QID 05/05/20 Inactive aspirin 81 mg tablet,delayed release RxNorm: 184256 Take 1 Tablet(s) Oral QD 03/31/20 Inactive Zetia 10 mg tablet RxNorm: 529779 Take 1 Tablet(s) Oral QD 03/31/20 Inactive Vitamin D2 1,250 mcg (50,000 unit) capsule RxNorm: 9005458 Take 1 Capsule(s) Oral QW once a week x 12 weeks 03/31/20 Inactive Vitamin D2 1,250 mcg (50,000 unit) capsule RxNorm: 4850964 Take 1 Capsule(s) Oral QW once a week 03/31/20 Inactive Zetia 10 mg tablet RxNorm: 668437 Take 1 Tablet(s) Oral QD 03/31/20 021 Inactive hydralazine 25 mg tablet RxNorm: 666566 Take 1 Tablet(s) Oral QID 03/31/20 021 Inactive hydralazine 25 mg tablet RxNorm: 720411 Take 1 Tablet(s) Oral QID 03/31/20 021 Inactive hydralazine 10 mg tablet RxNorm: 503983 Take 1 Tablet(s) Oral QID 03/03/20 021 Inactive cephalexin 500 mg tablet RxNorm: 799413 Take 1 Tablet(s) Oral QID 02/27/20 021 Inactive cephalexin 500 mg tablet RxNorm: 507178 Take 1 Tablet(s) Oral QID 02/27/20 021 Inactive lisinopril 40 mg tablet RxNorm: 299923 Take 1 Tablet(s) Oral QD 02/11/20 023 Inactive Eliquis 5 mg tablet RxNorm: 3720173 Take 1 Tablet(s) Oral BID 01/05/20 022 Inactive Eliquis 5 mg tablet RxNorm: 4163656 Take 2 Tablet(s) Oral QD 01/01/20 21 021 Inactive Lyrica 50 mg capsule RxNorm: 063168 Take 1 Capsule(s) Oral QAM every morning 12/24/19 021 Inactive Lyrica 100 mg capsule RxNorm: 242078 Take 1 Capsule(s) Oral QHS every night at bedtime 12/24/19 021 Inactive clotrimazole 1 % topical cream RxNorm: 066061 Apply to right foot and toes Topical BID 12/04/19 21 023 Inactive metoprolol succinate ER 200 mg tablet,extended release 24 hr RxNorm: 791821 Take 1 Tablet(s) Oral QD 12/04/19 21 023 Inactive ciprofloxacin 500 mg tablet RxNorm: 577637 Take 1 Tablet(s) Oral QD 11/30/19 21 021 Inactive DX ofloxacin otic drops Accu-Chek Guide test strips RxNorm: USE 1 TO CHECK GLUCOSE 4 TIMES DAILY AND NEEDED 11/15/19 21 023 Inactive Blood Glucose Test strips RxNorm: Use 1 Test Strip QID at PRN 11/05/19 21 023 Inactive E11.42 lisinopril 30 mg tablet RxNorm: 155578 Take 1 Tablet(s) Oral QD 10/30/19 021 Inactive lisinopril 20 mg tablet RxNorm: 357800 Take 1 Tablet(s) Oral QD 10/23/19 21 021 Inactive lisinopril 20 mg tablet RxNorm: 622031 Take 1 Tablet(s) Oral QD 10/23/19 021 Inactive lisinopril 10 mg tablet RxNorm: 626651 Take 1 Tablet(s) Oral QD 10/02/19 021 Inactive icosapent ethyl 1 gram capsule RxNorm: 2024125 Take 2 Capsule(s) (2 gm) Oral BID with meals 09/12/19 022 Inactive Okay to dispense one 2gm tab if you have that available. icosapent ethyl 1 gram capsule RxNorm: 3897687 Take 2 Capsule(s) Oral BID 09/12/19 021 Inactive Okay to dispense one 2gm tab if you have that available. amlodipine 10 mg tablet RxNorm: 523228 Take 1 Tablet(s) Oral QD 09/04/19 022 Inactive aspirin 81 mg tablet,delayed release RxNorm: 636153 Take 1 Tablet(s) Oral QD 09/04/19 21 021 Inactive Levemir FlexTouch U-100 Insulin 100 unit/mL (3 mL) subcutaneous pen RxNorm: 412585 Inject 150 Unit(s) Subcutaneous BID 09/04/19 21 022 Inactive venlafaxine ER 150 mg tablet,extended release 24 hr RxNorm: 549972 Take 1 Tablet(s) Oral QD 09/04/19 21 021 Inactive clotrimazole-betame thasone 1 %-0.05 % topical cream RxNorm: 319107 Apply to rash on red area on left abdomen/chest Topical BID 08/10/19 21 Inactive amlodipine 5 mg tablet RxNorm: 582718 Take 1 Tablet(s) Oral QD 07/31/19 Inactive cephalexin 500 mg tablet RxNorm: 044948 Take 1 Tablet(s) Oral BID BID - Twice Daily 07/31/19 021 Inactive Start 08/01/20 pantoprazole 40 mg tablet,delayed release RxNorm: 390228 Take 1 Tablet(s) Oral QAM every morning 07/08/19 022 Inactive senna 8.6 mg tablet RxNorm: 339646 Take 1 Tablet(s) Oral QD 07/08/19 022 Inactive pravastatin 80 mg tablet RxNorm: 540759 Take 1 Tablet(s) Oral QHS every night at bedtime 07/08/19 022 Inactive clotrimazole 1 % topical cream RxNorm: 015684 Apply to bilateral groin areas Topical BID 07/08/19 022 Inactive carbamazepine 200 mg tablet RxNorm: 588983 Take 1 Tablet(s) Oral BID 07/08/19 022 Inactive torsemide 20 mg tablet RxNorm: 736662 Take 1 Tablet(s) Oral QD 07/08/19 023 Inactive clopidogrel 75 mg tablet RxNorm: 408181 Take 1 Tablet(s) Oral QD 07/08/19 021 Inactive Blood Glucose Test strips RxNorm: Use 1 Test Strip QID at PRN 07/08/19 021 Inactive E11.42 Novolog Flexpen U-100 Insulin aspart 100 unit/mL (3 mL) subcutaneous RxNorm: 0691567 Administer per sliding scale Milliliter(s) Subcutaneous TID 151-200: 10 u; 201-250: 20 u; 251-300: 30 u; 301-350: 40 u; 351-400: 50 u. 07/08/19 21 022 Inactive lisinopril 5 mg tablet RxNorm: 105410 Take 1 Tablet(s) Oral QD 07/08/19 021 Inactive Novolog Flexpen U-100 Insulin aspart 100 unit/mL (3 mL) subcutaneous RxNorm: 4063479 Inject 85 Unit(s) Subcutaneous TID 07/08/19 022 Inactive metoprolol succinate ER 200 mg tablet,extended release 24 hr RxNorm: 071202 Take 1 Tablet(s) Oral QD 07/08/19 21 Inactive Vitamin D3 25 mcg (1,000 unit) tablet RxNorm: 239140 Take 1 Tablet(s) Oral QD 07/08/19 021 Inactive isosorbide dinitrate 30 mg tablet RxNorm: 524897 Take 1 Tablet(s) Oral QD 07/08/19 021 Inactive Levemir FlexTouch U-100 Insulin 100 unit/mL (3 mL) subcutaneous pen RxNorm: 444917 Inject 140 Unit(s) Subcutaneous BID 07/08/19 Inactive venlafaxine 75 mg tablet RxNorm: 523410 Take 1 Tablet(s) Oral QD 07/08/19 Inactive acetaminophen 500 mg tablet RxNorm: 026478 Take 1 Tablet(s) Oral TID as needed for headache 06/18/19 Inactive acetaminophen 500 mg tablet RxNorm: 582663 Take 1 Tablet(s) Oral TID as needed for headache 06/18/19 Inactive Lyrica 100 mg capsule RxNorm: 517662 Take 1 Capsule(s) Oral QHS every night at bedtime 06/11/19 Inactive Lyrica 50 mg capsule RxNorm: 956015 Take 1 Capsule(s) Oral QAM every morning 06/10/19 021 Inactive hydrocortisone 2.5 % topical cream RxNorm: 716229 Apply to bilateral groin creases Topical BID 05/15/20 20 021 Inactive clotrimazole 1 % topical cream RxNorm: 268916 Apply to bilateral groin areas Topical BID 05/15/20 20 021 Inactive Lyrica 50 mg capsule RxNorm: 590850 Take 1 Capsule(s) Oral QAM every morning 05/14/20 20 020 Inactive Lyrica 100 mg capsule RxNorm: 672831 Take 1 Capsule(s) Oral QHS every night [...] Inactive Nystop 100,000 unit/gram topical powder RxNorm: 574772 Apply to abd folds, under breasts and L side of groin Topical BID x 14 days, then BID PRN 04/08/20 20 021 Inactive dx: yeast dermatitis Lyrica 100 mg capsule RxNorm: 522728 Take 1 Capsule(s) Oral QHS every night at bedtime 03/13/20 20 Inactive Lyrica 50 mg capsule RxNorm: 830744 Take 1 Capsule(s) Oral QAM every morning 03/13/20 20 Inactive ketoconazole 2 % shampoo RxNorm: 732607 Apply Topical two times a week with showers 03/11/20 20 Inactive cholecalciferol (vitamin D3) 50 mcg (2,000 unit) tablet RxNorm: 721721 Take 1 Tablet(s) Oral QD 03/11/20 20 Inactive Zetia 10 mg tablet RxNorm: 415419 Take 1 Tablet(s) Oral QD 03/07/20 20 021 Inactive Zetia 10 mg tablet RxNorm: 477762 Take 1 Tablet(s) Oral QD 03/07/20 20 020 Inactive Lyrica 50 mg capsule RxNorm: 838659 Take 1 Capsule(s) Oral QAM every morning 02/15/20 20 Inactive Lyrica 100 mg capsule RxNorm: 952699 Take 1 Capsule(s) Oral QHS every night at bedtime 02/15/20 20 Inactive Lyrica 100 mg capsule RxNorm: 841797 Take 1 Capsule(s) Oral QHS every night at bedtime 02/15/20 20 Inactive Lyrica 50 mg capsule RxNorm: 685976 Take 1 Capsule(s) Oral QAM every morning 02/15/20 20 Inactive venlafaxine ER 75 mg capsule,extended release 24 hr RxNorm: 691773 Take 3 Capsule(s) Oral QD 06/12/19 22 Active polyethylene glycol 3350 17 gram/dose oral powder RxNorm: 465368 Take 17=1 capful Gram(s) Oral BID as needed mix with 4-8oz of liquid 06/12/19 22 Active Levemir FlexTouch U-100 Insulin 100 unit/mL (3 mL) subcutaneous pen RxNorm: 001596 Inject 80 Unit(s) Subcutaneous BID 07/14/19 23 023 Inactive loperamide 2 mg capsule RxNorm: 885736 Take 1 Capsule(s) Oral QID as needed 06/12/19 22 Active Novolog Flexpen U-100 Insulin aspart 100 unit/mL (3 mL) subcutaneous RxNorm: 1512055 Insert 30 Unit(s) Subcutaneous TID with meals [...] Result Date S ervice Location PHQ-9 PHQ9 05887-4 4 10/07/2021 Unknown PHQ-9 PHQ9 79802-9 4 10/07/2021 Unknown Procedures Procedure Codes Date SYS BP > OR = 140 CPT-4: G8753 10/07/2021 CUI BP > OR = 90 CPT-4: G8755 10/07/2021 ADVNC CARE PLAN IN RCRD CPT-4: 1157F 10/08/19 AMNT PAIN NOTED NONE PRSNT CPT-4: 1126F 10/07 FALL RISK ASSESSMENT DOCD CPT-4: 3288F 2021 PT INELIG NEG SCRN DEPRES SNOMED CT: [id number] CPT-4: G8510 10/07/2021 [employer]AC[employer]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 CPT-4: G0436 2021 Vital Signs Date Vital 10/07/2021 Blood Pressure 1: 184/91 Code: 8480-6 Heart Rate 1: 74 bpm Code: 8867-4 Respiratory Rate: 16 bpm Temperature: 36.6 (C) / 97.8 (F) Reason For Visit No Reason For Visit data Encounters Encounter Performer Location Location Address Codes Date () DOMICIL VISIT EST PAT Diagnosis: Hyperlipidemia associated [...] extremity edema[ICD10: R60.0] Diagnosis: Preventative health care[ICD10: Z00.00] Tapan Shirley [facility] [place] [address] [place] [address] CPT-4: 17389 10/07/2021 Plan of Care Planned Activity Notes Codes Status Date Referral: [facility] WPtel: [phone] [id number] [place] Referral Records Received 09/21/2022 Patient Education: Patient M edication Summary Completed 10/07/2021 Patient Education: Influenza Vaccine Completed 10/07/2021 Referral: [facility] WPtel: [address] [id number] [place] Referral Completed 05/28/2021 Referral: General Cardiology [...] attention.??Sister Jyotsna involved in his care cell# [phone]??Guardian: Don (tapan met in person 09/01/21), now has Lexii (same group as don)Lab Schedule: Mar-/September* 10/06/2022 Diabetes A1c 9.1H.??Now established with endo, defer further treatment to them for DM management. SBPs continue to be elevated even though on multiple medication to control BP. refer to merchandising internship for further eval.?? Chronic Kidney Disease Reviewed labs completed 09/18/21, GFR >60nl, Cr 1.02nl, Hgb 12.2. Continue to monitor cbc and BMP/CMP [id number].?? Edema Continue to encourage daily wearing of compression stockings. Nursing reminded to educate staff on proper application of socks so as not to leave indents. BMP reviewed and w/o concerns. Electrolytes wnl.=.?? Preventative health care BPS AWV completed today. Vaccines due, ordered for nursing to administer.?? . 10/07/2021
--- OUTSIDE RECORDS SUMMARY | 2022-11-09 23:25 | XMS_ITS | CCD ---
Author Name Unknown Organization Unknown Care Team Providers [facility] [employer] Name Role Phone Tapan Shirley PA-C Primary Care Provider Unavailabl e Tapan Shirley PA-C Chronic Care Management Unavaila ble Summary Purpose DataExchange Insurance Providers Payer name Policy type / Coverage type Covered alliance party ID Effective Begin Date Effective End Date Medicare [place] Medicare Part B [id number] Unknown Unknown Medicaid [place] Medicare Part B [id number] Unknown Unknown Family history Sister Brittany Suggs Diagnosis Age At Onset No Family Disease Entered N/A Runs in the family Diagnosis Age At Onset No Known Diseases N/A Sister Blanka Mcduffie Diagnosis Age At Onset No Family Disease Entered N/A Social History Social History Element Codes Description Effec tive Dates Marital status Unknown Single 10/07/2021 Living arrangements Unknown Senior Care 09/03/[address]: 7058983 Non-Smoker / No History of Smoking 09/02/[address]: 727793128 No Alcohol Consum ption 09/02/2020 Allergies, Adverse Reactions, Alerts Substance Reaction Codes Entered Date Inactivated Date Status LISINOPRIL RxNorm: 63676 02/12/2020 No Inactive Da te Active Metformin [...] ICD-10: S98. 131A ICD-9: 895.0 09/01/2021 Active FDC (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 insulin ICD-10: Z79.4 09/01 Active Onychogryposis ICD-10: L60.2 ICD-9: 703.8 09/01/2021 Active Seizure disorder ICD-10: G40.909 ICD-9: 345.90 09/01/2021 Active Muscular pain ICD-10: M79.10 ICD-9: 729.1 08/04/2021 Active Pain of right heel ICD-10: M79.671 ICD-9: 729.5 08/04/2021 Active Coronary artery disease invo lving [place] coronary artery of [place] heart, angina presence unspecified ICD-10: I25.10 ICD-9: [...] Fill Instructions pregabalin 50 mg capsule RxNorm: 929093 1 Capsule(s) Oral QAM every morning 10/15/19 22 022 Inactive Shingrix (PF) 50 mcg/0.5 mL intramuscular suspension, kit RxNorm: 7727386 Administer 1/2 Milliliter(s) Intramuscular one time Nursing please administer upon arrival and once administered 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, lehr operator, 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 10/09/19 22 022 Inactive shingrix step 1 Shingrix (PF) 50 mcg/0.5 mL intramuscular suspension, kit RxNorm: 5470098 Administer 1/2 Milliliter(s) Intramuscular one time Nursing please administer upon arrival and once administered 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, lehr operator, 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 10/09/19 22 022 Inactive shingrix step 1 Novolog Flexpen U-100 Insulin aspart 100 unit/mL (3 mL) subcutaneous RxNorm: 6638704 Inject 10 Unit(s) Subcutaneous QHS every night at bedtime with nighttime snack 10/08/19 22 Inactive Novolog Flexpen U-100 Insulin aspart 100 unit/mL (3 mL) subcutaneous RxNorm: 9071471 Inject 36 Unit(s) Subcutaneous TID in addition to sliding scale 10/08/19 22 Inactive cholecalciferol (vitamin D3) 1,250 mcg (50,000 unit) capsule RxNorm: 602773 Take 1 Capsule(s) Oral QW once a [...] 50 mcg/0.5 mL intramuscular suspension, kit RxNorm: 7468776 ADMINISTER 2-DOSE SERIES PER CDC GUIDELINES 10/08/19 22 022 Active Shingrix (PF) 50 mcg/0.5 mL intramuscular suspension, kit RxNorm: 3444737 ADMINISTER 2-DOSE SERIES PER CDC GUIDELINES 10/08/19 22 Inactive Novofine Autocover 30 gauge x 1/3 needle RxNorm: Use 1 Miscellaneous UD as directed Use 1 needle as directed to administer insulin 5 times a day Dx:E11.42. 10/03/19 22 Inactive ok to substitute with any covered alternative pen needle benzoyl peroxide 10 % topical cleanser RxNorm: 612146 Apply 1 Application Topical QD apply to face, wash rinse and dry once daily (may change to QOD if drying) 08/19/19 22 022 Inactive (%covered by insurance) #60ml refill 11 dx: acne Lyrica 100 mg capsule RxNorm: 876837 Take 1 Capsule(s) Oral QHS every night at bedtime Take 1 capsule by mouth once daily at bedtime 08/19/19 022 Inactive benzoyl peroxide 10 % topical cleanser RxNorm: 018900 Apply 1 Application Topical QD apply to face, wash rinse and dry once daily (may change to QOD if drying) 08/19/19 22 022 Inactive (%covered by insurance) #60ml refill 11 dx: acne benzoyl peroxide 10 % topical cleanser RxNorm: 973360 Apply 1 Application Topical QD apply to face, wash rinse and dry once daily (may change to QOD if drying) 08/19/19 22 022 Inactive (%covered by insurance) #60ml refill 11 dx: acne Lyrica 50 mg capsule RxNorm: 640769 Take 1 Capsule(s) Oral QAM every morning Take 1 capsule by mouth once daily 08/19/19 22 022 Inactive benzoyl peroxide 10 % topical cleanser RxNorm: 606938 Apply 1 Application Topical QD apply to face, wash rinse and dry once daily (may change to QOD if drying) 08/19/19 22 022 Inactive (%covered by insurance) #60ml refill 11 dx: acne Lyrica 100 mg capsule RxNorm: 529035 Take 1 Capsule(s) Oral QHS every night at bedtime Take 1 capsule by mouth once daily at bedtime 08/16/19 22 022 Inactive Lyrica 50 mg capsule RxNorm: 970692 Take 1 Capsule(s) Oral QAM every morning Take 1 capsule by mouth once daily 08/16/19 22 022 Inactive Levemir FlexTouch U-100 Insulin 100 unit/mL (3 mL) subcutaneous pen RxNorm: 339131 Inject 86 Unit(s) Subcutaneous BID 08/05/19 22 022 Inactive d/c 83units BID Lyrica 100 mg capsule RxNorm: 548920 Take 1 Capsule(s) Oral QHS every night at bedtime Take 1 capsule by mouth once daily at bedtime 07/14/19 22 022 Inactive Lyrica 50 mg capsule RxNorm: 455017 Take 1 Capsule(s) Oral QAM every morning Take 1 capsule by mouth once daily 07/14/19 22 022 Inactive Levemir FlexTouch U-100 Insulin 100 unit/mL (3 mL) subcutaneous pen RxNorm: 082559 Inject 83 Unit(s) Subcutaneous BID 07/08/19 22 [...] test strip hydralazine 50 mg tablet RxNorm: 683983 Take 1 Tablet(s) Oral QID 05/05/20 21 Inactive isosorbide mononitrate ER 30 mg tablet,extended release 24 hr RxNorm: 727206 Take 1 Tablet(s) Oral QD 05/05/20 No Stop Date Active venlafaxine ER 225 mg tablet,extended release 24 hr RxNorm: 278243 Take 1 Tablet(s) Oral QD 05/05/20 Inactive venlafaxine ER 225 mg tablet,extended release 24 hr RxNorm: 406004 Take 1 Tablet(s) Oral QD 05/05/20 022 Inactive hydralazine 50 mg tablet RxNorm: 228098 Take 1 Tablet(s) Oral QID 05/05/20 21 Inactive aspirin 81 mg tablet,delayed release RxNorm: 302664 Take 1 Tablet(s) Oral QD 03/31/20 022 Inactive Zetia 10 mg tablet RxNorm: 004587 Take 1 Tablet(s) Oral QD 03/31/20 Inactive Vitamin D2 1,250 mcg (50,000 unit) capsule RxNorm: 1894288 Take 1 Capsule(s) Oral QW once a week x 12 weeks 03/31/20 022 Inactive Vitamin D2 1,250 mcg (50,000 unit) capsule RxNorm: 9232616 Take 1 Capsule(s) Oral QW once a week 03/31/20 Inactive Zetia 10 mg tablet RxNorm: 511313 Take 1 Tablet(s) Oral QD 03/31/20 021 Inactive hydralazine 25 mg tablet RxNorm: 639827 Take 1 Tablet(s) Oral QID 03/31/20 021 Inactive hydralazine 25 mg tablet RxNorm: 388495 Take 1 Tablet(s) Oral QID 03/31/20 021 Inactive hydralazine 10 mg tablet RxNorm: 392618 Take 1 Tablet(s) Oral QID 03/03/20 021 Inactive cephalexin 500 mg tablet RxNorm: 110235 Take 1 Tablet(s) Oral QID 02/27/20 021 Inactive cephalexin 500 mg tablet RxNorm: 991302 Take 1 Tablet(s) Oral QID 02/27/20 021 Inactive lisinopril 40 mg tablet RxNorm: 183069 Take 1 Tablet(s) Oral QD 02/11/20 023 Inactive Eliquis 5 mg tablet RxNorm: 5377906 Take 1 Tablet(s) Oral BID 01/05/20 022 Inactive Eliquis 5 mg tablet RxNorm: 6203719 Take 2 Tablet(s) Oral QD 01/01/20 21 021 Inactive Lyrica 50 mg capsule RxNorm: 747117 Take 1 Capsule(s) Oral QAM every morning 12/24/19 21 021 Inactive Lyrica 100 mg capsule RxNorm: 422110 Take 1 Capsule(s) Oral QHS every night at bedtime 12/24/19 021 Inactive clotrimazole 1 % topical cream RxNorm: 739438 Apply to right foot and toes Topical BID 12/04/19 21 023 Inactive metoprolol succinate ER 200 mg tablet,extended release 24 hr RxNorm: 687462 Take 1 Tablet(s) Oral QD 12/04/19 21 023 Inactive ciprofloxacin 500 mg tablet RxNorm: 825996 Take 1 Tablet(s) Oral QD 11/30/19 21 021 Inactive DX ofloxacin otic drops Accu-Chek Guide test strips RxNorm: USE 1 TO CHECK GLUCOSE 4 TIMES DAILY AND NEEDED 11/15/19 023 Inactive Blood Glucose Test strips RxNorm: Use 1 Test Strip QID at PRN 11/05/19 21 023 Inactive E11.42 lisinopril 30 mg tablet RxNorm: 586941 Take 1 Tablet(s) Oral QD 10/30/19 021 Inactive lisinopril 20 mg tablet RxNorm: 286836 Take 1 Tablet(s) Oral QD 10/23/19 021 Inactive lisinopril 20 mg tablet RxNorm: 697537 Take 1 Tablet(s) Oral QD 10/23/19 21 021 Inactive lisinopril 10 mg tablet RxNorm: 141302 Take 1 Tablet(s) Oral QD 10/02/19 021 Inactive icosapent ethyl 1 gram capsule RxNorm: 3256958 Take 2 Capsule(s) (2 gm) Oral BID with meals 09/12/19 022 Inactive Okay to dispense one 2gm tab if you have that available. icosapent ethyl 1 gram capsule RxNorm: 1773069 Take 2 Capsule(s) Oral BID 09/12/19 021 Inactive Okay to dispense one 2gm tab if you have that available. amlodipine 10 mg tablet RxNorm: 806454 Take 1 Tablet(s) Oral QD 09/04/19 022 Inactive aspirin 81 mg tablet,delayed release RxNorm: 961780 Take 1 Tablet(s) Oral QD 09/04/19 021 Inactive Levemir FlexTouch U-100 Insulin 100 unit/mL (3 mL) subcutaneous pen RxNorm: 147853 Inject 150 Unit(s) Subcutaneous BID 09/04/19 21 022 Inactive venlafaxine ER 150 mg tablet,extended release 24 hr RxNorm: 443900 Take 1 Tablet(s) Oral QD 09/04/19 21 021 Inactive clotrimazole-betame thasone 1 %-0.05 % topical cream RxNorm: 654895 Apply to rash on red area on left abdomen/chest Topical BID 08/10/19 21 04/19/2 021 Inactive amlodipine 5 mg tablet RxNorm: 084824 Take 1 Tablet(s) Oral QD 07/31/19 Inactive cephalexin 500 mg tablet RxNorm: 609722 Take 1 Tablet(s) Oral BID BID - Twice Daily 07/31/19 21 021 Inactive Start 08/01/20 pantoprazole 40 mg tablet,delayed release RxNorm: 390421 Take 1 Tablet(s) Oral QAM every morning 07/08/19 Inactive senna 8.6 mg tablet RxNorm: 275255 Take 1 Tablet(s) Oral QD 07/08/19 022 Inactive pravastatin 80 mg tablet RxNorm: 404610 Take 1 Tablet(s) Oral QHS every night at bedtime 07/08/19 Inactive clotrimazole 1 % topical cream RxNorm: 584389 Apply to bilateral groin areas Topical BID 07/08/19 Inactive carbamazepine 200 mg tablet RxNorm: 039747 Take 1 Tablet(s) Oral BID 07/08/19 022 Inactive torsemide 20 mg tablet RxNorm: 925194 Take 1 Tablet(s) Oral QD 07/08/19 023 Inactive clopidogrel 75 mg tablet RxNorm: 426847 Take 1 Tablet(s) Oral QD 07/08/19 021 Inactive Blood Glucose Test strips RxNorm: Use 1 Test Strip QID at PRN 07/08/19 Inactive E11.42 Novolog Flexpen U-100 Insulin aspart 100 unit/mL (3 mL) subcutaneous RxNorm: 0637553 Administer per sliding scale Milliliter(s) Subcutaneous TID 151-200: 10 u; 201-250: 20 u; 251-300: 30 u; 301-350: 40 u; 351-400: 50 u. 07/08/19 022 Inactive lisinopril 5 mg tablet RxNorm: 351339 Take 1 Tablet(s) Oral QD 07/08/19 021 Inactive Novolog Flexpen U-100 Insulin aspart 100 unit/mL (3 mL) subcutaneous RxNorm: 1170713 Inject 85 Unit(s) Subcutaneous TID 07/08/19 022 Inactive metoprolol succinate ER 200 mg tablet,extended release 24 hr RxNorm: 476271 Take 1 Tablet(s) Oral QD 07/08/19 Inactive Vitamin D3 25 mcg (1,000 unit) tablet RxNorm: 528277 Take 1 Tablet(s) Oral QD 07/08/19 021 Inactive isosorbide dinitrate 30 mg tablet RxNorm: 046156 Take 1 Tablet(s) Oral QD 07/08/19 021 Inactive Levemir FlexTouch U-100 Insulin 100 unit/mL (3 mL) subcutaneous pen RxNorm: 128744 Inject 140 Unit(s) Subcutaneous BID 07/08/19 Inactive venlafaxine 75 mg tablet RxNorm: 595229 Take 1 Tablet(s) Oral QD 07/08/19 Inactive acetaminophen 500 mg tablet RxNorm: 464918 Take 1 Tablet(s) Oral TID as needed for headache 06/18/19 Inactive acetaminophen 500 mg tablet RxNorm: 739272 Take 1 Tablet(s) Oral TID as needed for headache 06/18/19 Inactive Lyrica 100 mg capsule RxNorm: 184127 Take 1 Capsule(s) Oral QHS every night at bedtime 06/11/19 021 Inactive Lyrica 50 mg capsule RxNorm: 319023 Take 1 Capsule(s) Oral QAM every morning 06/10/19 021 Inactive hydrocortisone 2.5 % topical cream RxNorm: 223881 Apply to bilateral groin creases Topical BID 05/15/20 20 021 Inactive clotrimazole 1 % topical cream RxNorm: 042117 Apply to bilateral groin areas Topical BID 05/15/20 20 021 Inactive Lyrica 50 mg capsule RxNorm: 920005 Take 1 Capsule(s) Oral QAM every morning 05/14/20 20 020 Inactive Lyrica 100 mg capsule RxNorm: 504531 Take 1 Capsule(s) Oral QHS every night [...] Inactive Nystop 100,000 unit/gram topical powder RxNorm: 563150 Apply to abd folds, under breasts and L side of groin Topical BID x 14 days, then BID PRN 04/08/20 20 021 Inactive dx: yeast dermatitis Lyrica 100 mg capsule RxNorm: 097349 Take 1 Capsule(s) Oral QHS every night at bedtime 03/13/20 20 Inactive Lyrica 50 mg capsule RxNorm: 731327 Take 1 Capsule(s) Oral QAM every morning 03/13/20 20 Inactive ketoconazole 2 % shampoo RxNorm: 062485 Apply Topical two times a week with showers 03/11/20 20 Inactive cholecalciferol (vitamin D3) 50 mcg (2,000 unit) tablet RxNorm: 854434 Take 1 Tablet(s) Oral QD 03/11/20 20 021 Inactive Zetia 10 mg tablet RxNorm: 534106 Take 1 Tablet(s) Oral QD 03/07/20 20 021 Inactive Zetia 10 mg tablet RxNorm: 237490 Take 1 Tablet(s) Oral QD 03/07/20 20 020 Inactive Lyrica 50 mg capsule RxNorm: 121828 Take 1 Capsule(s) Oral QAM every morning 02/15/20 20 Inactive Lyrica 100 mg capsule RxNorm: 052604 Take 1 Capsule(s) Oral QHS every night at bedtime 02/15/20 20 Inactive Lyrica 100 mg capsule RxNorm: 215977 Take 1 Capsule(s) Oral QHS every night at bedtime 02/15/20 20 Inactive Lyrica 50 mg capsule RxNorm: 473449 Take 1 Capsule(s) Oral QAM every morning 02/15/20 20 Inactive venlafaxine ER 75 mg capsule,extended release 24 hr RxNorm: 052822 Take 3 Capsule(s) Oral QD 06/12/19 Active polyethylene glycol 3350 17 gram/dose oral powder RxNorm: 117849 Take 17=1 capful Gram(s) Oral BID as needed mix with 4-8oz of liquid 06/12/19 22 Active Levemir FlexTouch U-100 Insulin 100 unit/mL (3 mL) subcutaneous pen RxNorm: 892005 Inject 80 Unit(s) Subcutaneous BID 07/14/19 23 023 Inactive loperamide 2 mg capsule RxNorm: 054658 Take 1 Capsule(s) Oral QID as needed 06/12/19 22 Active Novolog Flexpen U-100 Insulin aspart 100 unit/mL (3 mL) subcutaneous RxNorm: 8145624 Insert 30 Unit(s) Subcutaneous TID with meals [...] Date Referral: [facility] WPtel: [phone], [address] [id number] [place] Referral Records Received 09/21/2022 Referral: [facility] WPtel: [phone] [id number] [place] Referral Completed 05/28/2021 Referral: General Cardiology [...] a hospitalization 05/2021 he moved to the [facility] to have closer nursing attention.??Sister Jyotsna involved in his care cell# [phone]??Guardian: Don (tapan met in person 09/01/21), now has Lexii (same group as don)Lab Schedule: * 10/06/2022
--- OUTSIDE RECORDS SUMMARY | 2022-11-09 23:25 | XMS_ITS | CCD ---
Author Name Unknown Organization Unknown Care Team Providers Care Acid Patroller Name Role Phone Tapan Shirley PA-C Primary Care Provider Unavailabl e Tapan Shirley PA-C Chronic Care Management Unavaila ble Summary Purpose DataExchange Insurance Providers Payer name Policy type / Coverage type Covered green party ID Effective Begin Date Effective End Date [place] [id number] Unknown Unknown [place] B [id number] Unknown Unknown Family history Sister Brittany Sgugs Diagnosis Age At Onset No Family Disease Entered N/A Runs in the family Diagnosis Age At Onset No Known Diseases N/A Sister Blanka Mcduffie Diagnosis Age At Onset No Family Disease Entered N/A Social History Social History Element Codes Description Effec tive Dates Marital status Unknown Single 10/07/2021 Living arrangements Unknown Fdc 09/03/[address]: 6335760 Non-Smoker / No History of Smoking 09/02/[address]: 463761930 No Alcohol Consum ption 09/02/2020 Allergies, Adverse Reactions, Alerts Substance Reaction Codes Entered Date Inactivated Date Status LISINOPRIL RxNorm: 01394 02/12/2020 No Inactive Da te Active Metformin [...] ICD-10: S98. 131A ICD-9: 895.0 09/01/2021 Active shelter (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 insulin ICD-10: Z79.4 09/01 Active Onychogryposis ICD-10: L60.2 ICD-9: 703.8 09/01/2021 Active Seizure disorder ICD-10: G40.909 ICD-9: 345.90 09/01/2021 Active Muscular pain ICD-10: M79.10 ICD-9: 729.1 08/04/2021 Active Pain of right heel ICD-10: M79.671 ICD-9: 729.5 08/04/2021 Active Coronary artery disease invo lving [place] coronary artery of [place] heart, angina presence unspecified ICD-10: I25.10 ICD-9: [...] Fill Instructions pregabalin 50 mg capsule RxNorm: 839335 Take 1 Capsule(s) Oral QAM every morning 10/16/19 022 Inactive pregabalin 50 mg capsule RxNorm: 566144 Take 1 Capsule(s) Oral QAM every morning 10/16/19 22 022 Inactive pregabalin 50 mg capsule RxNorm: 049555 1 Capsule(s) Oral QAM every morning 10/15/19 22 022 Inactive Shingrix (PF) 50 mcg/0.5 mL intramuscular suspension, kit RxNorm: 8009684 Administer 1/2 Milliliter(s) Intramuscular one time Nursing please administer upon arrival and once administered 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, aircraft inspection record clerk, 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 10/09/19 22 022 Inactive shingrix step 1 Shingrix (PF) 50 mcg/0.5 mL intramuscular suspension, kit RxNorm: 7539869 Administer 1/2 Milliliter(s) Intramuscular one time Nursing please administer upon arrival and once administered 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, aircraft inspection record clerk, 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 10/09/19 22 022 Inactive shingrix step 1 Novolog Flexpen U-100 Insulin aspart 100 unit/mL (3 mL) subcutaneous RxNorm: 1342473 Inject 10 Unit(s) Subcutaneous QHS every night at bedtime with nighttime snack 10/08/19 22 022 Inactive Novolog Flexpen U-100 Insulin aspart 100 unit/mL (3 mL) subcutaneous RxNorm: 1149359 Inject 36 Unit(s) Subcutaneous TID in addition to sliding scale 10/08/19 22 Inactive cholecalciferol (vitamin D3) 1,250 mcg (50,000 unit) capsule RxNorm: 739870 Take 1 Capsule(s) Oral QW once a [...] once ADMINISTER PER CDC GUIDELINES 10/08/19 22 05/23/2 022 Active Tdap dx: tetanus prophylaxis, please dispense syringe and needle Shingrix (PF) 50 mcg/0.5 mL intramuscular suspension, kit RxNorm: 5822605 ADMINISTER 2-DOSE SERIES PER CDC GUIDELINES 10/08/19 22 Active Shingrix (PF) 50 mcg/0.5 mL intramuscular suspension, kit RxNorm: 7855775 ADMINISTER 2-DOSE SERIES PER CDC GUIDELINES 10/08/19 22 Inactive Novofine Autocover 30 gauge x 1/3 needle RxNorm: Use 1 Miscellaneous UD as directed Use 1 needle as directed to administer insulin 5 times a day Dx:E11.42. 10/03/19 22 Inactive ok to substitute with any covered alternative pen needle benzoyl peroxide 10 % topical cleanser RxNorm: 462373 Apply 1 Application Topical QD apply to face, wash rinse and dry once daily (may change to QOD if drying) 08/19/19 Inactive (%covered by insurance) #60ml refill 11 dx: acne Lyrica 100 mg capsule RxNorm: 201750 Take 1 Capsule(s) Oral QHS every night at bedtime Take 1 capsule by mouth once daily at bedtime 08/19/19 22 Inactive benzoyl peroxide 10 % topical cleanser RxNorm: 471451 Apply 1 Application Topical QD apply to face, wash rinse and dry once daily (may change to QOD if drying) 08/19/19 22 022 Inactive (%covered by insurance) #60ml refill 11 dx: acne benzoyl peroxide 10 % topical cleanser RxNorm: 570447 Apply 1 Application Topical QD apply to face, wash rinse and dry once daily (may change to QOD if drying) 08/19/19 22 022 Inactive (%covered by insurance) #60ml refill 11 dx: acne Lyrica 50 mg capsule RxNorm: 872016 Take 1 Capsule(s) Oral QAM every morning Take 1 capsule by mouth once daily 08/19/19 22 022 Inactive benzoyl peroxide 10 % topical cleanser RxNorm: 219244 Apply 1 Application Topical QD apply to face, wash rinse and dry once daily (may change to QOD if drying) 08/19/19 22 022 Inactive (%covered by insurance) #60ml refill 11 dx: acne Lyrica 100 mg capsule RxNorm: 040231 Take 1 Capsule(s) Oral QHS every night at bedtime Take 1 capsule by mouth once daily at bedtime 08/16/19 22 022 Inactive Lyrica 50 mg capsule RxNorm: 642469 Take 1 Capsule(s) Oral QAM every morning Take 1 capsule by mouth once daily 08/16/19 22 022 Inactive Levemir FlexTouch U-100 Insulin 100 unit/mL (3 mL) subcutaneous pen RxNorm: 215763 Inject 86 Unit(s) Subcutaneous BID 08/05/19 22 022 Inactive d/c 83units BID Lyrica 100 mg capsule RxNorm: 708231 Take 1 Capsule(s) Oral QHS every night at bedtime Take 1 capsule by mouth once daily at bedtime 07/14/19 22 022 Inactive Lyrica 50 mg capsule RxNorm: 367890 Take 1 Capsule(s) Oral QAM every morning Take 1 capsule by mouth once daily 07/14/19 22 022 Inactive Levemir FlexTouch U-100 Insulin 100 unit/mL (3 mL) subcutaneous pen RxNorm: 428671 Inject 83 Unit(s) Subcutaneous BID 07/08/19 22 [...] test strip hydralazine 50 mg tablet RxNorm: 663564 Take 1 Tablet(s) Oral QID 05/05/20 21 Inactive isosorbide mononitrate ER 30 mg tablet,extended release 24 hr RxNorm: 220417 Take 1 Tablet(s) Oral QD 05/05/20 No Stop Date Active venlafaxine ER 225 mg tablet,extended release 24 hr RxNorm: 748295 Take 1 Tablet(s) Oral QD 05/05/20 21 Inactive venlafaxine ER 225 mg tablet,extended release 24 hr RxNorm: 966103 Take 1 Tablet(s) Oral QD 05/05/20 022 Inactive hydralazine 50 mg tablet RxNorm: 553155 Take 1 Tablet(s) Oral QID 05/05/20 21 Inactive aspirin 81 mg tablet,delayed release RxNorm: 011609 Take 1 Tablet(s) Oral QD 03/31/20 Inactive Zetia 10 mg tablet RxNorm: 676813 Take 1 Tablet(s) Oral QD 03/31/20 Inactive Vitamin D2 1,250 mcg (50,000 unit) capsule RxNorm: 5463443 Take 1 Capsule(s) Oral QW once a week x 12 weeks 11/15/20 21 05/23/2 022 Inactive Vitamin D2 1,250 mcg (50,000 unit) capsule RxNorm: 0723305 Take 1 Capsule(s) Oral QW once a week 03/31/20 Inactive Zetia 10 mg tablet RxNorm: 627250 Take 1 Tablet(s) Oral QD 03/31/20 021 Inactive hydralazine 25 mg tablet RxNorm: 516474 Take 1 Tablet(s) Oral QID 03/31/20 021 Inactive hydralazine 25 mg tablet RxNorm: 173882 Take 1 Tablet(s) Oral QID 03/31/20 021 Inactive hydralazine 10 mg tablet RxNorm: 227455 Take 1 Tablet(s) Oral QID 03/03/20 021 Inactive cephalexin 500 mg tablet RxNorm: 666280 Take 1 Tablet(s) Oral QID 02/27/20 021 Inactive cephalexin 500 mg tablet RxNorm: 810427 Take 1 Tablet(s) Oral QID 02/27/20 021 Inactive lisinopril 40 mg tablet RxNorm: 155272 Take 1 Tablet(s) Oral QD 02/11/20 023 Inactive Eliquis 5 mg tablet RxNorm: 2854044 Take 1 Tablet(s) Oral BID 01/05/20 022 Inactive Eliquis 5 mg tablet RxNorm: 9514263 Take 2 Tablet(s) Oral QD 01/01/20 21 021 Inactive Lyrica 50 mg capsule RxNorm: 025728 Take 1 Capsule(s) Oral QAM every morning 12/24/19 21 021 Inactive Lyrica 100 mg capsule RxNorm: 319784 Take 1 Capsule(s) Oral QHS every night at bedtime 12/24/19 021 Inactive clotrimazole 1 % topical cream RxNorm: 292557 Apply to right foot and toes Topical BID 12/04/19 21 023 Inactive metoprolol succinate ER 200 mg tablet,extended release 24 hr RxNorm: 763922 Take 1 Tablet(s) Oral QD 12/04/19 023 Inactive ciprofloxacin 500 mg tablet RxNorm: 074279 Take 1 Tablet(s) Oral QD 11/30/19 21 021 Inactive DX ofloxacin otic drops Accu-Chek Guide test strips RxNorm: USE 1 TO CHECK GLUCOSE 4 TIMES DAILY AND NEEDED 11/15/19 21 023 Inactive Blood Glucose Test strips RxNorm: Use 1 Test Strip QID at PRN 11/05/19 21 023 Inactive E11.42 lisinopril 30 mg tablet RxNorm: 126739 Take 1 Tablet(s) Oral QD 10/30/19 021 Inactive lisinopril 20 mg tablet RxNorm: 911467 Take 1 Tablet(s) Oral QD 10/23/19 021 Inactive lisinopril 20 mg tablet RxNorm: 123908 Take 1 Tablet(s) Oral QD 10/23/19 021 Inactive lisinopril 10 mg tablet RxNorm: 230455 Take 1 Tablet(s) Oral QD 10/02/19 021 Inactive icosapent ethyl 1 gram capsule RxNorm: 3918930 Take 2 Capsule(s) (2 gm) Oral BID with meals 09/12/19 022 Inactive Okay to dispense one 2gm tab if you have that available. icosapent ethyl 1 gram capsule RxNorm: 4004712 Take 2 Capsule(s) Oral BID 09/12/19 021 Inactive Okay to dispense one 2gm tab if you have that available. amlodipine 10 mg tablet RxNorm: 542884 Take 1 Tablet(s) Oral QD 09/04/19 022 Inactive aspirin 81 mg tablet,delayed release RxNorm: 812557 Take 1 Tablet(s) Oral QD 09/04/19 021 Inactive Levemir FlexTouch U-100 Insulin 100 unit/mL (3 mL) subcutaneous pen RxNorm: 242654 Inject 150 Unit(s) Subcutaneous BID 09/04/19 21 022 Inactive venlafaxine ER 150 mg tablet,extended release 24 hr RxNorm: 012411 Take 1 Tablet(s) Oral QD 09/04/19 21 021 Inactive clotrimazole-betame thasone 1 %-0.05 % topical cream RxNorm: 232556 Apply to rash on red area on left abdomen/chest Topical BID 08/10/19 21 021 Inactive amlodipine 5 mg tablet RxNorm: 548457 Take 1 Tablet(s) Oral QD 07/31/19 Inactive cephalexin 500 mg tablet RxNorm: 505911 Take 1 Tablet(s) Oral BID BID - Twice Daily 07/31/19 021 Inactive Start 08/01/20 pantoprazole 40 mg tablet,delayed release RxNorm: 752311 Take 1 Tablet(s) Oral QAM every morning 07/08/19 022 Inactive senna 8.6 mg tablet RxNorm: 920595 Take 1 Tablet(s) Oral QD 07/08/19 022 Inactive pravastatin 80 mg tablet RxNorm: 400043 Take 1 Tablet(s) Oral QHS every night at bedtime 07/08/19 022 Inactive clotrimazole 1 % topical cream RxNorm: 151009 Apply to bilateral groin areas Topical BID 07/08/19 21 022 Inactive carbamazepine 200 mg tablet RxNorm: 773607 Take 1 Tablet(s) Oral BID 07/08/19 21 022 Inactive torsemide 20 mg tablet RxNorm: 481138 Take 1 Tablet(s) Oral QD 07/08/19 21 023 Inactive clopidogrel 75 mg tablet RxNorm: 180356 Take 1 Tablet(s) Oral QD 07/08/19 021 Inactive Blood Glucose Test strips RxNorm: Use 1 Test Strip QID at PRN 07/08/19 21 021 Inactive E11.42 Novolog Flexpen U-100 Insulin aspart 100 unit/mL (3 mL) subcutaneous RxNorm: 1807881 Administer per sliding scale Milliliter(s) Subcutaneous TID 151-200: 10 u; 201-250: 20 u; 251-300: 30 u; 301-350: 40 u; 351-400: 50 u. 07/08/19 022 Inactive lisinopril 5 mg tablet RxNorm: 796706 Take 1 Tablet(s) Oral QD 07/08/19 21 021 Inactive Novolog Flexpen U-100 Insulin aspart 100 unit/mL (3 mL) subcutaneous RxNorm: 0697990 Inject 85 Unit(s) Subcutaneous TID 07/08/19 21 022 Inactive metoprolol succinate ER 200 mg tablet,extended release 24 hr RxNorm: 258533 Take 1 Tablet(s) Oral QD 07/08/19 021 Inactive Vitamin D3 25 mcg (1,000 unit) tablet RxNorm: 082907 Take 1 Tablet(s) Oral QD 07/08/19 021 Inactive isosorbide dinitrate 30 mg tablet RxNorm: 446446 Take 1 Tablet(s) Oral QD 07/08/19 021 Inactive Levemir FlexTouch U-100 Insulin 100 unit/mL (3 mL) subcutaneous pen RxNorm: 943293 Inject 140 Unit(s) Subcutaneous BID 07/08/19 021 Inactive venlafaxine 75 mg tablet RxNorm: 371029 Take 1 Tablet(s) Oral QD 07/08/19 021 Inactive acetaminophen 500 mg tablet RxNorm: 800829 Take 1 Tablet(s) Oral TID as needed for headache 06/18/19 021 Inactive acetaminophen 500 mg tablet RxNorm: 568997 Take 1 Tablet(s) Oral TID as needed for headache 06/18/19 021 Inactive Lyrica 100 mg capsule RxNorm: 895804 Take 1 Capsule(s) Oral QHS every night at bedtime 06/11/19 021 Inactive Lyrica 50 mg capsule RxNorm: 965349 Take 1 Capsule(s) Oral QAM every morning 06/10/19 21 021 Inactive hydrocortisone 2.5 % topical cream RxNorm: 036758 Apply to bilateral groin creases Topical BID 05/15/20 20 021 Inactive clotrimazole 1 % topical cream RxNorm: 177263 Apply to bilateral groin areas Topical BID 05/15/20 20 Inactive Lyrica 50 mg capsule RxNorm: 188089 Take 1 Capsule(s) Oral QAM every morning 05/14/20 20 Inactive Lyrica 100 mg capsule RxNorm: 653689 Take 1 Capsule(s) Oral QHS every night [...] Inactive Nystop 100,000 unit/gram topical powder RxNorm: 161849 Apply to abd folds, under breasts and L side of groin Topical BID x 14 days, then BID PRN 04/08/20 20 021 Inactive dx: yeast dermatitis Lyrica 100 mg capsule RxNorm: 178102 Take 1 Capsule(s) Oral QHS every night at bedtime 03/13/20 20 Inactive Lyrica 50 mg capsule RxNorm: 265586 Take 1 Capsule(s) Oral QAM every morning 03/13/20 20 Inactive ketoconazole 2 % shampoo RxNorm: 126221 Apply Topical two times a week with showers 03/11/20 20 Inactive cholecalciferol (vitamin D3) 50 mcg (2,000 unit) tablet RxNorm: 183938 Take 1 Tablet(s) Oral QD 03/11/20 20 Inactive Zetia 10 mg tablet RxNorm: 811936 Take 1 Tablet(s) Oral QD 03/07/20 20 021 Inactive Zetia 10 mg tablet RxNorm: 169435 Take 1 Tablet(s) Oral QD 03/07/20 Inactive Lyrica 50 mg capsule RxNorm: 315643 Take 1 Capsule(s) Oral QAM every morning 02/15/20 Inactive Lyrica 100 mg capsule RxNorm: 341039 Take 1 Capsule(s) Oral QHS every night at bedtime 02/15/20 Inactive Lyrica 100 mg capsule RxNorm: 234037 Take 1 Capsule(s) Oral QHS every night at bedtime 02/15/20 Inactive Lyrica 50 mg capsule RxNorm: 597862 Take 1 Capsule(s) Oral QAM every morning 02/15/20 Inactive venlafaxine ER 75 mg capsule,extended release 24 hr RxNorm: 032997 Take 3 Capsule(s) Oral QD 06/12/19 22 Active polyethylene glycol 3350 17 gram/dose oral powder RxNorm: 904592 Take 17=1 capful Gram(s) Oral BID as needed mix with 4-8oz of liquid 06/12/19 22 Active Levemir FlexTouch U-100 Insulin 100 unit/mL (3 mL) subcutaneous pen RxNorm: 145077 Inject 80 Unit(s) Subcutaneous BID 07/14/19 23 023 Inactive loperamide 2 mg capsule RxNorm: 536712 Take 1 Capsule(s) Oral QID as needed 06/12/19 22 Active Novolog Flexpen U-100 Insulin aspart 100 unit/mL (3 mL) subcutaneous RxNorm: 4943899 Insert 30 Unit(s) Subcutaneous TID with meals [...] Codes Status Date Referral: [facility] WPtel: [phone] [id number] [place] Referral Records Received 09/21/2022 Referral: [facility] WPtel: [phone] [id number] [place] Referral Completed 05/28/2021 Referral: General Cardiology Referral Complet ed 01/03/2021 Referral: General Psychologist Referral Close d Instructions Comment Date Leonid is a?? Male being seen living at [facility]. Initial BPS visit 01/2020. PMHx including DMII, CAD w/ 5 stents, Depression, Seizure Disorder and CKD stage 3. He moved into [facility] in 12/2019 but after a hospitalization 05/2021 he moved to [facility] to have closer nursing attention.??Sister Jyotsna involved in his care cell# [phone]??Guardian: Don (tapan met in person 09/01/21), now has Lexii (same group as don)Lab Schedule: * 10/06/2022
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
--- OUTSIDE RECORDS SUMMARY | 2022-11-09 23:26 | XMS_ITS | CCD ---
Author Name Unknown Organization Unknown Care Team Providers Care Marzipan Molder Name Role Phone Tapan Shirley PA-C Primary Care Provider Unavailabl e Tapan Shirley PA-C Chronic Care Management Unavaila ble Summary Purpose DataExchange Insurance Providers Payer name Policy type / Coverage type Covered constitution party ID Effective Begin Date Effective End Date [place] [id number] [place] [id number] Unknown Unknown Family history Sister Brittany Suggs [...] Unknown Assisted 09/03/[address]: 7955970 Non-Smoker / No History of Smoking 09/02/[address]: 424435926 No Alcohol Consum ption 09/02/2020 Allergies, Adverse Reactions, Alerts Substance Reaction Codes Entered Date Inactivated Date Status LISINOPRIL RxNorm: 36439 02/12/2020 No Inactive Da te Active Metformin [...] ICD-10: S98. 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 ICD-10: Z79.4 09/01 Active Muscular pain ICD-10: M79.10 ICD-9: 729.1 08/04/2021 Active Pain of right heel ICD-10: M79.671 ICD-9: 729.5 08/04/2021 Active Coronary artery disease invo lving [place] coronary artery of [place] heart, angina presence unspecified ICD-10: I25.10 ICD-9: [...] Fill Instructions Abilify 5 mg tablet RxNorm: 066350 Take 1 Tablet(s) Oral QD take 1 tab po QD #30 refill 5 dx: MDD 12/12/19 22 022 Inactive Abilify 5 mg tablet RxNorm: 198114 Take 1 Tablet(s) Oral QD take 1 tab po QD #30 refill 5 dx: MDD 12/12/19 22 022 Inactive chlorthalidone 25 mg tablet RxNorm: 790486 Take 1 Tablet(s) Oral QAM every morning 12/10/19 22 023 Active Novolog Flexpen U-100 Insulin aspart 100 unit/mL (3 mL) subcutaneous RxNorm: 5232867 Inject 42 Unit(s) Subcutaneous TID in addition to sliding scale 12/10/19 22 022 Inactive d/c 36u pregabalin 50 mg capsule RxNorm: 017996 Take 1 Capsule(s) Oral QAM every morning 11/12/19 22 022 Inactive tetanus-diphtheria toxoids-Td 2 Lf unit-2 Lf unit/0.5 mL IM suspension RxNorm: 139 Take 0.5 Miscellaneous Intramuscular 11/12/19 22 022 Inactive need tdap - nursing to administer upon arrival pregabalin 50 mg capsule RxNorm: 266218 Take 1 Capsule(s) Oral QAM every morning 10/16/19 22 022 Inactive pregabalin 50 mg capsule RxNorm: 553915 Take 1 Capsule(s) Oral QAM every morning 10/16/19 22 022 Inactive pregabalin 50 mg capsule RxNorm: 224516 1 Capsule(s) Oral QAM every morning 10/15/19 22 022 Inactive Shingrix (PF) 50 mcg/0.5 mL intramuscular suspension, kit RxNorm: 4580852 Administer 1/2 Milliliter(s) Intramuscular one time Nursing please administer upon arrival and once administered 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 10/09/19 22 022 Inactive shingrix step 1 Shingrix (PF) 50 mcg/0.5 mL intramuscular suspension, kit RxNorm: 1676177 Administer 1/2 Milliliter(s) Intramuscular one time Nursing please administer upon arrival and once administered 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 10/09/19 22 Inactive shingrix step 1 Novolog Flexpen U-100 Insulin aspart 100 unit/mL (3 mL) subcutaneous RxNorm: 7952226 Inject 10 Unit(s) Subcutaneous QHS every night at bedtime with nighttime snack 10/08/19 Inactive cholecalciferol (vitamin D3) 1,250 mcg (50,000 unit) capsule RxNorm: 592141 Take 1 Capsule(s) Oral QW once a [...] 50 mcg/0.5 mL intramuscular suspension, kit RxNorm: 5445157 ADMINISTER 2-DOSE SERIES PER CDC GUIDELINES 10/08/19 22 Active Shingrix (PF) 50 mcg/0.5 mL intramuscular suspension, kit RxNorm: 9342953 ADMINISTER 2-DOSE SERIES PER CDC GUIDELINES 10/08/19 22 Inactive Novolog Flexpen U-100 Insulin aspart 100 unit/mL (3 mL) subcutaneous RxNorm: 9505825 Inject 36 Unit(s) Subcutaneous TID in addition to sliding scale 10/08/19 Inactive Novofine Autocover 30 gauge x 1/3 needle RxNorm: Use 1 Miscellaneous UD as directed Use 1 needle as directed to administer insulin 5 times a day Dx:E11.42. 10/03/19 Inactive ok to substitute with any covered alternative pen needle benzoyl peroxide 10 % topical cleanser RxNorm: 969046 Apply 1 Application Topical QD apply to face, wash rinse and dry once daily (may change to QOD if drying) 08/19/19 22 10/24/2 022 Inactive (%covered by insurance) #60ml refill 11 dx: acne Lyrica 100 mg capsule RxNorm: 057066 Take 1 Capsule(s) Oral QHS every night at bedtime Take 1 capsule by mouth once daily at bedtime 08/19/19 22 Inactive benzoyl peroxide 10 % topical cleanser RxNorm: 460759 Apply 1 Application Topical QD apply to face, wash rinse and dry once daily (may change to QOD if drying) 08/19/19 22 022 Inactive (%covered by insurance) #60ml refill 11 dx: acne benzoyl peroxide 10 % topical cleanser RxNorm: 320716 Apply 1 Application Topical QD apply to face, wash rinse and dry once daily (may change to QOD if drying) 08/19/19 22 022 Inactive (%covered by insurance) #60ml refill 11 dx: acne Lyrica 50 mg capsule RxNorm: 812388 Take 1 Capsule(s) Oral QAM every morning Take 1 capsule by mouth once daily 08/19/19 Inactive benzoyl peroxide 10 % topical cleanser RxNorm: 484266 Apply 1 Application Topical QD apply to face, wash rinse and dry once daily (may change to QOD if drying) 08/19/19 022 Inactive (%covered by insurance) #60ml refill 11 dx: acne Lyrica 100 mg capsule RxNorm: 198662 Take 1 Capsule(s) Oral QHS every night at bedtime Take 1 capsule by mouth once daily at bedtime 08/16/19 Inactive Lyrica 50 mg capsule RxNorm: 537081 Take 1 Capsule(s) Oral QAM every morning Take 1 capsule by mouth once daily 08/16/19 Inactive Levemir FlexTouch U-100 Insulin 100 unit/mL (3 mL) subcutaneous pen RxNorm: 102380 Inject 86 Unit(s) Subcutaneous BID 08/05/19 22 Inactive d/c 83units BID Lyrica 100 mg capsule RxNorm: 107014 Take 1 Capsule(s) Oral QHS every night at bedtime Take 1 capsule by mouth once daily at bedtime 07/14/19 22 Inactive Lyrica 50 mg capsule RxNorm: 199559 Take 1 Capsule(s) Oral QAM every morning Take 1 capsule by mouth once daily 07/14/19 22 Inactive Levemir FlexTouch U-100 Insulin 100 unit/mL (3 mL) subcutaneous pen RxNorm: 823658 Inject 83 Unit(s) Subcutaneous BID 07/08/19 22 [...] test strip hydralazine 50 mg tablet RxNorm: 600059 Take 1 Tablet(s) Oral QID 05/05/20 Inactive isosorbide mononitrate ER 30 mg tablet,extended release 24 hr RxNorm: 194246 Take 1 Tablet(s) Oral QD 05/05/20 No Stop Date Active venlafaxine ER 225 mg tablet,extended release 24 hr RxNorm: 915821 Take 1 Tablet(s) Oral QD 05/05/20 Inactive venlafaxine ER 225 mg tablet,extended release 24 hr RxNorm: 213061 Take 1 Tablet(s) Oral QD 05/05/20 022 Inactive hydralazine 50 mg tablet RxNorm: 286891 Take 1 Tablet(s) Oral QID 05/05/20 Inactive aspirin 81 mg tablet,delayed release RxNorm: 394586 Take 1 Tablet(s) Oral QD 03/31/20 Inactive Zetia 10 mg tablet RxNorm: 617756 Take 1 Tablet(s) Oral QD 03/31/20 Inactive Vitamin D2 1,250 mcg (50,000 unit) capsule RxNorm: 1789316 Take 1 Capsule(s) Oral QW once a week x 12 weeks 03/31/20 Inactive Vitamin D2 1,250 mcg (50,000 unit) capsule RxNorm: 2873645 Take 1 Capsule(s) Oral QW once a week 03/31/20 Inactive Zetia 10 mg tablet RxNorm: 949306 Take 1 Tablet(s) Oral QD 03/31/20 Inactive hydralazine 25 mg tablet RxNorm: 525648 Take 1 Tablet(s) Oral QID 03/31/20 Inactive hydralazine 25 mg tablet RxNorm: 017837 Take 1 Tablet(s) Oral QID 03/31/20 Inactive hydralazine 10 mg tablet RxNorm: 569998 Take 1 Tablet(s) Oral QID 03/03/20 Inactive cephalexin 500 mg tablet RxNorm: 372028 Take 1 Tablet(s) Oral QID 10/13/20 21 10/19/2 021 Inactive cephalexin 500 mg tablet RxNorm: 653940 Take 1 Tablet(s) Oral QID 02/27/20 21 021 Inactive lisinopril 40 mg tablet RxNorm: 744356 Take 1 Tablet(s) Oral QD 02/11/20 21 023 Inactive Eliquis 5 mg tablet RxNorm: 2234200 Take 1 Tablet(s) Oral BID 01/05/20 21 022 Inactive Eliquis 5 mg tablet RxNorm: 9940742 Take 2 Tablet(s) Oral QD 01/01/20 21 021 Inactive Lyrica 50 mg capsule RxNorm: 085537 Take 1 Capsule(s) Oral QAM every morning 12/24/19 021 Inactive Lyrica 100 mg capsule RxNorm: 178897 Take 1 Capsule(s) Oral QHS every night at bedtime 12/24/19 021 Inactive clotrimazole 1 % topical cream RxNorm: 733180 Apply to right foot and toes Topical BID 12/04/19 21 021 Inactive metoprolol succinate ER 200 mg tablet,extended release 24 hr RxNorm: 174285 Take 1 Tablet(s) Oral QD 12/04/19 023 Inactive ciprofloxacin 500 mg tablet RxNorm: 226339 Take 1 Tablet(s) Oral QD 11/30/19 021 Inactive DX ofloxacin otic drops Accu-Chek Guide test strips RxNorm: USE 1 TO CHECK GLUCOSE 4 TIMES DAILY AND NEEDED 11/15/19 21 021 Inactive Blood Glucose Test strips RxNorm: Use 1 Test Strip QID at PRN 11/05/19 21 022 Inactive E11.42 lisinopril 30 mg tablet RxNorm: 501061 Take 1 Tablet(s) Oral QD 10/30/19 021 Inactive lisinopril 20 mg tablet RxNorm: 809266 Take 1 Tablet(s) Oral QD 10/23/19 21 021 Inactive lisinopril 20 mg tablet RxNorm: 416675 Take 1 Tablet(s) Oral QD 10/23/19 21 Inactive lisinopril 10 mg tablet RxNorm: 268279 Take 1 Tablet(s) Oral QD 10/02/19 021 Inactive icosapent ethyl 1 gram capsule RxNorm: 9798802 Take 2 Capsule(s) (2 gm) Oral BID with meals 09/12/19 Inactive Okay to dispense one 2gm tab if you have that available. icosapent ethyl 1 gram capsule RxNorm: 6861010 Take 2 Capsule(s) Oral BID 09/12/19 021 Inactive Okay to dispense one 2gm tab if you have that available. amlodipine 10 mg tablet RxNorm: 325334 Take 1 Tablet(s) Oral QD 09/04/19 Inactive aspirin 81 mg tablet,delayed release RxNorm: 011706 Take 1 Tablet(s) Oral QD 09/04/19 Inactive Levemir FlexTouch U-100 Insulin 100 unit/mL (3 mL) subcutaneous pen RxNorm: 299348 Inject 150 Unit(s) Subcutaneous BID 09/04/19 022 Inactive venlafaxine ER 150 mg tablet,extended release 24 hr RxNorm: 502976 Take 1 Tablet(s) Oral QD 09/04/19 Inactive clotrimazole-betame thasone 1 %-0.05 % topical cream RxNorm: 491534 Apply to rash on red area on left abdomen/chest Topical BID 08/10/19 Inactive amlodipine 5 mg tablet RxNorm: 367962 Take 1 Tablet(s) Oral QD 07/31/19 021 Inactive cephalexin 500 mg tablet RxNorm: 032081 Take 1 Tablet(s) Oral BID BID - Twice Daily 07/31/19 21 021 Inactive Start 08/01/20 pantoprazole 40 mg tablet,delayed release RxNorm: 096501 Take 1 Tablet(s) Oral QAM every morning 07/08/19 022 Inactive senna 8.6 mg tablet RxNorm: 442402 Take 1 Tablet(s) Oral QD 07/08/19 022 Inactive pravastatin 80 mg tablet RxNorm: 725183 Take 1 Tablet(s) Oral QHS every night at bedtime 07/08/19 Inactive clotrimazole 1 % topical cream RxNorm: 018376 Apply to bilateral groin areas Topical BID 07/08/19 Inactive carbamazepine 200 mg tablet RxNorm: 561983 Take 1 Tablet(s) Oral BID 07/08/19 Inactive torsemide 20 mg tablet RxNorm: 684577 Take 1 Tablet(s) Oral QD 07/08/19 022 Inactive clopidogrel 75 mg tablet RxNorm: 291652 Take 1 Tablet(s) Oral QD 07/08/19 Inactive Blood Glucose Test strips RxNorm: Use 1 Test Strip QID at PRN 07/08/19 Inactive E11.42 Novolog Flexpen U-100 Insulin aspart 100 unit/mL (3 mL) subcutaneous RxNorm: 5232667 Administer per sliding scale Milliliter(s) Subcutaneous TID 151-200: 10 u; 201-250: 20 u; 251-300: 30 u; 301-350: 40 u; 351-400: 50 u. 07/08/19 Inactive lisinopril 5 mg tablet RxNorm: 866523 Take 1 Tablet(s) Oral QD 07/08/19 Inactive Novolog Flexpen U-100 Insulin aspart 100 unit/mL (3 mL) subcutaneous RxNorm: 7663997 Inject 85 Unit(s) Subcutaneous TID 07/08/19 022 Inactive metoprolol succinate ER 200 mg tablet,extended release 24 hr RxNorm: 076029 Take 1 Tablet(s) Oral QD 07/08/19 Inactive Vitamin D3 25 mcg (1,000 unit) tablet RxNorm: 274965 Take 1 Tablet(s) Oral QD 07/08/19 Inactive isosorbide dinitrate 30 mg tablet RxNorm: 523938 Take 1 Tablet(s) Oral QD 07/08/19 Inactive Levemir FlexTouch U-100 Insulin 100 unit/mL (3 mL) subcutaneous pen RxNorm: 632968 Inject 140 Unit(s) Subcutaneous BID 07/08/19 21 021 Inactive venlafaxine 75 mg tablet RxNorm: 722099 Take 1 Tablet(s) Oral QD 07/08/19 21 Inactive acetaminophen 500 mg tablet RxNorm: 289418 Take 1 Tablet(s) Oral TID as needed for headache 06/18/19 21 Inactive acetaminophen 500 mg tablet RxNorm: 775122 Take 1 Tablet(s) Oral TID as needed for headache 06/18/19 21 021 Inactive Lyrica 100 mg capsule RxNorm: 349666 Take 1 Capsule(s) Oral QHS every night at bedtime 06/11/19 21 021 Inactive Lyrica 50 mg capsule RxNorm: 419100 Take 1 Capsule(s) Oral QAM every morning 06/10/19 21 021 Inactive hydrocortisone 2.5 % topical cream RxNorm: 093962 Apply to bilateral groin creases Topical BID 05/15/20 20 021 Inactive clotrimazole 1 % topical cream RxNorm: 678117 Apply to bilateral groin areas Topical BID 05/15/20 20 021 Inactive Lyrica 50 mg capsule RxNorm: 009918 Take 1 Capsule(s) Oral QAM every morning 05/14/20 20 020 Inactive Lyrica 100 mg capsule RxNorm: 197919 Take 1 Capsule(s) Oral QHS every night [...] Inactive Nystop 100,000 unit/gram topical powder RxNorm: 978241 Apply to abd folds, under breasts and L side of groin Topical BID x 14 days, then BID PRN 04/08/20 20 Inactive dx: yeast dermatitis Lyrica 100 mg capsule RxNorm: 516659 Take 1 Capsule(s) Oral QHS every night at bedtime 03/13/20 20 Inactive Lyrica 50 mg capsule RxNorm: 745978 Take 1 Capsule(s) Oral QAM every morning 03/13/20 20 Inactive ketoconazole 2 % shampoo RxNorm: 696936 Apply Topical two times a week with showers 03/11/20 20 Inactive cholecalciferol (vitamin D3) 50 mcg (2,000 unit) tablet RxNorm: 440200 Take 1 Tablet(s) Oral QD 03/11/20 20 021 Inactive Zetia 10 mg tablet RxNorm: 497047 Take 1 Tablet(s) Oral QD 03/07/20 20 021 Inactive Zetia 10 mg tablet RxNorm: 676439 Take 1 Tablet(s) Oral QD 03/07/20 20 Inactive Lyrica 50 mg capsule RxNorm: 635408 Take 1 Capsule(s) Oral QAM every morning 02/15/20 20 Inactive Lyrica 100 mg capsule RxNorm: 304868 Take 1 Capsule(s) Oral QHS every night at bedtime 02/15/20 20 Inactive Lyrica 100 mg capsule RxNorm: 169516 Take 1 Capsule(s) Oral QHS every night at bedtime 02/15/20 20 Inactive Lyrica 50 mg capsule RxNorm: 833098 Take 1 Capsule(s) Oral QAM every morning 02/15/20 20 Inactive venlafaxine ER 75 mg capsule,extended release 24 hr RxNorm: 268235 Take 3 Capsule(s) Oral QD 06/12/19 Active polyethylene glycol 3350 17 gram/dose oral powder RxNorm: 809396 Take 17=1 capful Gram(s) Oral BID as needed mix with 4-8oz of liquid 06/12/19 Active Levemir FlexTouch U-100 Insulin 100 unit/mL (3 mL) subcutaneous pen RxNorm: 758218 Inject 80 Unit(s) Subcutaneous BID 07/14/19 23 023 Inactive loperamide 2 mg capsule RxNorm: 140717 Take 1 Capsule(s) Oral QID as needed 06/12/19 22 Active Novolog Flexpen U-100 Insulin aspart 100 unit/mL (3 mL) subcutaneous RxNorm: 6773535 Insert 30 Unit(s) Subcutaneous TID with meals [...] Codes Status Date Referral: [facility] WPtel: [address], [address] [id number] [place] Referral Appointment Scheduled 09/21/2022 Referral: [facility] WPtel: [address] [id number] [place] Referral Completed 05/28/2021 Referral: General Cardiology [...] attention.??Sister Jyotsna involved in his care cell# [phone]??Guardian: Don (tapan met in person 09/01/21), now has Lexii (same group as don)Lab Schedule: Mar- /09/08/2022
--- OUTSIDE RECORDS SUMMARY | 2022-11-09 23:26 | XMS_ITS | CCD ---
Author Name Tapan Shirley PA-C Address [address] [place] [address] [facility] Phone Care Team Providers Care Eligibility Consultant Name Role Phone Tapan Shirley PA-C Primary Care Provider Unavailabl e Tapan Shirley PA-C Chronic Care Management Unavaila ble Summary Purpose DataExchange Insurance Providers Payer name Policy type / Coverage type Covered constitution party ID Effective Begin Date Effective End Date Medicare [place] Part B [id number] Unknown Unknown [place] B [id number] Unknown Unknown Family history Sister Brittany Suggs Diagnosis Age At Onset No Family Disease Entered N/A Runs in the family Diagnosis Age At Onset No Known Diseases N/A Sister Blanka Mcduffie Diagnosis Age At Onset No Family Disease Entered N/A Social History Social History Element Codes Description Effec tive Dates Marital status Unknown Single 10/07/2021 Living arrangements Unknown Fpc 09/03/[address]: 7265515 Non-Smoker / No History of Smoking 09/02/[address]: 721356743 No Alcohol Consum ption 09/02/2020 Allergies, Adverse Reactions, Alerts Substance Reaction Codes Entered Date Inactivated Date Status LISINOPRIL RxNorm: 32938 02/12/2020 No Inactive Da te Active Metformin [...] ICD-10: S98. 131A ICD-9: 895.0 09/01/2021 Active USP (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 insulin ICD-10: Z79.4 09/01 Active Muscular pain ICD-10: M79.10 ICD-9: 729.1 08/04/2021 Active Pain of right heel ICD-10: M79.671 ICD-9: 729.5 08/04/2021 Active Coronary artery disease invo lving tejon coronary artery of tejon heart, angina presence unspecified ICD-10: I25.10 ICD-9: [...] aspart 100 unit/mL (3 mL) subcutaneous RxNorm: 8071743 Inject 42 Unit(s) Subcutaneous TID in addition to sliding scale 12/10/19 22 022 Inactive d/c 36u chlorthalidone 25 mg tablet RxNorm: 885880 Take 1 Tablet(s) Oral QAM every morning 12/10/19 22 023 Active pregabalin 50 mg capsule RxNorm: 341601 Take 1 Capsule(s) Oral QAM every morning 11/12/19 22 022 Inactive tetanus-diphtheria toxoids-Td 2 Lf unit-2 Lf unit/0.5 mL IM suspension RxNorm: 139 Take 0.5 Miscellaneous Intramuscular 11/12/19 022 Inactive need tdap - nursing to administer upon arrival pregabalin 50 mg capsule RxNorm: 227763 Take 1 Capsule(s) Oral QAM every morning 10/16/19 022 Inactive pregabalin 50 mg capsule RxNorm: 950988 Take 1 Capsule(s) Oral QAM every morning 10/16/19 22 022 Inactive pregabalin 50 mg capsule RxNorm: 938182 1 Capsule(s) Oral QAM every morning 10/15/19 22 022 Inactive Shingrix (PF) 50 mcg/0.5 mL intramuscular suspension, kit RxNorm: 7240834 Administer 1/2 Milliliter(s) Intramuscular one time Nursing please administer upon arrival and once administered 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, rn or lpn, 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 10/09/19 22 022 Inactive shingrix step 1 Shingrix (PF) 50 mcg/0.5 mL intramuscular suspension, kit RxNorm: 4566570 Administer 1/2 Milliliter(s) Intramuscular one time Nursing please administer upon arrival and once administered 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, rn or lpn, 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 10/09/19 22 022 Inactive shingrix step 1 Novolog Flexpen U-100 Insulin aspart 100 unit/mL (3 mL) subcutaneous RxNorm: 5944009 Inject 10 Unit(s) Subcutaneous QHS every night at bedtime with nighttime snack 10/08/19 22 Inactive cholecalciferol (vitamin D3) 1,250 mcg (50,000 unit) capsule RxNorm: 804554 Take 1 Capsule(s) Oral QW once a [...] 50 mcg/0.5 mL intramuscular suspension, kit RxNorm: 0271911 ADMINISTER 2-DOSE SERIES PER CDC GUIDELINES 10/08/19 22 Active Shingrix (PF) 50 mcg/0.5 mL intramuscular suspension, kit RxNorm: 7917389 ADMINISTER 2-DOSE SERIES PER CDC GUIDELINES 10/08/19 22 Inactive Novolog Flexpen U-100 Insulin aspart 100 unit/mL (3 mL) subcutaneous RxNorm: 7973203 Inject 36 Unit(s) Subcutaneous TID in addition to sliding scale 10/08/19 22 Inactive Novofine Autocover 30 gauge x 1/3 needle RxNorm: Use 1 Miscellaneous UD as directed Use 1 needle as directed to administer insulin 5 times a day Dx:E11.42. 10/03/19 22 Inactive ok to substitute with any covered alternative pen needle benzoyl peroxide 10 % topical cleanser RxNorm: 277958 Apply 1 Application Topical QD apply to face, wash rinse and dry once daily (may change to QOD if drying) 08/19/19 22 Inactive (%covered by insurance) #60ml refill 11 dx: acne Lyrica 100 mg capsule RxNorm: 531501 Take 1 Capsule(s) Oral QHS every night at bedtime Take 1 capsule by mouth once daily at bedtime 08/19/19 22 022 Inactive benzoyl peroxide 10 % topical cleanser RxNorm: 205246 Apply 1 Application Topical QD apply to face, wash rinse and dry once daily (may change to QOD if drying) 08/19/19 22 022 Inactive (%covered by insurance) #60ml refill 11 dx: acne benzoyl peroxide 10 % topical cleanser RxNorm: 020903 Apply 1 Application Topical QD apply to face, wash rinse and dry once daily (may change to QOD if drying) 08/19/19 22 022 Inactive (%covered by insurance) #60ml refill 11 dx: acne Lyrica 50 mg capsule RxNorm: 957462 Take 1 Capsule(s) Oral QAM every morning Take 1 capsule by mouth once daily 08/19/19 Inactive benzoyl peroxide 10 % topical cleanser RxNorm: 864833 Apply 1 Application Topical QD apply to face, wash rinse and dry once daily (may change to QOD if drying) 08/19/19 22 022 Inactive (%covered by insurance) #60ml refill 11 dx: acne Lyrica 100 mg capsule RxNorm: 457084 Take 1 Capsule(s) Oral QHS every night at bedtime Take 1 capsule by mouth once daily at bedtime 08/16/19 022 Inactive Lyrica 50 mg capsule RxNorm: 216402 Take 1 Capsule(s) Oral QAM every morning Take 1 capsule by mouth once daily 08/16/19 Inactive Levemir FlexTouch U-100 Insulin 100 unit/mL (3 mL) subcutaneous pen RxNorm: 282771 Inject 86 Unit(s) Subcutaneous BID 08/05/19 22 022 Inactive d/c 83units BID Lyrica 100 mg capsule RxNorm: 420007 Take 1 Capsule(s) Oral QHS every night at bedtime Take 1 capsule by mouth once daily at bedtime 07/14/19 22 07/14/ 022 Inactive Lyrica 50 mg capsule RxNorm: 196005 Take 1 Capsule(s) Oral QAM every morning Take 1 capsule by mouth once daily 07/14/19 22 Inactive Levemir FlexTouch U-100 Insulin 100 unit/mL (3 mL) subcutaneous pen RxNorm: 768252 Inject 83 Unit(s) Subcutaneous BID 07/08/19 22 [...] test strip hydralazine 50 mg tablet RxNorm: 899927 Take 1 Tablet(s) Oral QID 05/05/20 21 022 Inactive isosorbide mononitrate ER 30 mg tablet,extended release 24 hr RxNorm: 216764 Take 1 Tablet(s) Oral QD 05/05/20 No Stop Date Active venlafaxine ER 225 mg tablet,extended release 24 hr RxNorm: 341554 Take 1 Tablet(s) Oral QD 05/05/20 Inactive venlafaxine ER 225 mg tablet,extended release 24 hr RxNorm: 129709 Take 1 Tablet(s) Oral QD 05/05/20 022 Inactive hydralazine 50 mg tablet RxNorm: 504253 Take 1 Tablet(s) Oral QID 05/05/20 Inactive aspirin 81 mg tablet,delayed release RxNorm: 858561 Take 1 Tablet(s) Oral QD 03/31/20 Inactive Zetia 10 mg tablet RxNorm: 274471 Take 1 Tablet(s) Oral QD 03/31/20 Inactive Vitamin D2 1,250 mcg (50,000 unit) capsule RxNorm: 1030274 Take 1 Capsule(s) Oral QW once a week x 12 weeks 03/31/20 Inactive Vitamin D2 1,250 mcg (50,000 unit) capsule RxNorm: 5698423 Take 1 Capsule(s) Oral QW once a week 03/31/20 Inactive Zetia 10 mg tablet RxNorm: 512109 Take 1 Tablet(s) Oral QD 03/31/20 Inactive hydralazine 25 mg tablet RxNorm: 964336 Take 1 Tablet(s) Oral QID 03/31/20 Inactive hydralazine 25 mg tablet RxNorm: 220643 Take 1 Tablet(s) Oral QID 03/31/20 Inactive hydralazine 10 mg tablet RxNorm: 689047 Take 1 Tablet(s) Oral QID 03/03/20 Inactive cephalexin 500 mg tablet RxNorm: 264974 Take 1 Tablet(s) Oral QID 02/27/20 Inactive cephalexin 500 mg tablet RxNorm: 655191 Take 1 Tablet(s) Oral QID 02/27/20 Inactive lisinopril 40 mg tablet RxNorm: 185133 Take 1 Tablet(s) Oral QD 02/11/20 023 Inactive Eliquis 5 mg tablet RxNorm: 0949815 Take 1 Tablet(s) Oral BID 01/05/20 21 022 Inactive Eliquis 5 mg tablet RxNorm: 0934414 Take 2 Tablet(s) Oral QD 01/01/20 21 021 Inactive Lyrica 50 mg capsule RxNorm: 020410 Take 1 Capsule(s) Oral QAM every morning 12/24/19 21 021 Inactive Lyrica 100 mg capsule RxNorm: 100068 Take 1 Capsule(s) Oral QHS every night at bedtime 12/24/19 021 Inactive clotrimazole 1 % topical cream RxNorm: 265878 Apply to right foot and toes Topical BID 12/04/19 21 023 Inactive metoprolol succinate ER 200 mg tablet,extended release 24 hr RxNorm: 628442 Take 1 Tablet(s) Oral QD 12/04/19 023 Inactive ciprofloxacin 500 mg tablet RxNorm: 060215 Take 1 Tablet(s) Oral QD 11/30/19 021 Inactive DX ofloxacin otic drops Accu-Chek Guide test strips RxNorm: USE 1 TO CHECK GLUCOSE 4 TIMES DAILY AND NEEDED 11/15/19 21 023 Inactive Blood Glucose Test strips RxNorm: Use 1 Test Strip QID at PRN 11/05/19 023 Inactive E11.42 lisinopril 30 mg tablet RxNorm: 702232 Take 1 Tablet(s) Oral QD 10/30/19 021 Inactive lisinopril 20 mg tablet RxNorm: 729344 Take 1 Tablet(s) Oral QD 10/23/19 021 Inactive lisinopril 20 mg tablet RxNorm: 324291 Take 1 Tablet(s) Oral QD 10/23/19 21 021 Inactive lisinopril 10 mg tablet RxNorm: 822489 Take 1 Tablet(s) Oral QD 10/02/19 21 021 Inactive icosapent ethyl 1 gram capsule RxNorm: 8499290 Take 2 Capsule(s) (2 gm) Oral BID with meals 09/12/19 Inactive Okay to dispense one 2gm tab if you have that available. icosapent ethyl 1 gram capsule RxNorm: 2424188 Take 2 Capsule(s) Oral BID 09/12/19 Inactive Okay to dispense one 2gm tab if you have that available. amlodipine 10 mg tablet RxNorm: 036888 Take 1 Tablet(s) Oral QD 09/04/19 Inactive aspirin 81 mg tablet,delayed release RxNorm: 546741 Take 1 Tablet(s) Oral QD 09/04/19 Inactive Levemir FlexTouch U-100 Insulin 100 unit/mL (3 mL) subcutaneous pen RxNorm: 500739 Inject 150 Unit(s) Subcutaneous BID 09/04/19 Inactive venlafaxine ER 150 mg tablet,extended release 24 hr RxNorm: 476413 Take 1 Tablet(s) Oral QD 09/04/19 Inactive clotrimazole-betame thasone 1 %-0.05 % topical cream RxNorm: 106028 Apply to rash on red area on left abdomen/chest Topical BID 08/10/19 Inactive amlodipine 5 mg tablet RxNorm: 785823 Take 1 Tablet(s) Oral QD 07/31/19 Inactive cephalexin 500 mg tablet RxNorm: 325782 Take 1 Tablet(s) Oral BID BID - Twice Daily 07/31/19 021 Inactive Start 08/01/20 pantoprazole 40 mg tablet,delayed release RxNorm: 252467 Take 1 Tablet(s) Oral QAM every morning 07/08/19 Inactive senna 8.6 mg tablet RxNorm: 905472 Take 1 Tablet(s) Oral QD 07/08/19 022 Inactive pravastatin 80 mg tablet RxNorm: 524109 Take 1 Tablet(s) Oral QHS every night at bedtime 07/08/19 022 Inactive clotrimazole 1 % topical cream RxNorm: 259144 Apply to bilateral groin areas Topical BID 07/08/19 21 022 Inactive carbamazepine 200 mg tablet RxNorm: 348678 Take 1 Tablet(s) Oral BID 07/08/19 21 022 Inactive torsemide 20 mg tablet RxNorm: 753439 Take 1 Tablet(s) Oral QD 07/08/19 21 023 Inactive clopidogrel 75 mg tablet RxNorm: 538280 Take 1 Tablet(s) Oral QD 07/08/19 021 Inactive Blood Glucose Test strips RxNorm: Use 1 Test Strip QID at PRN 07/08/19 21 Inactive E11.42 Novolog Flexpen U-100 Insulin aspart 100 unit/mL (3 mL) subcutaneous RxNorm: 2009961 Administer per sliding scale Milliliter(s) Subcutaneous TID 151-200: 10 u; 201-250: 20 u; 251-300: 30 u; 301-350: 40 u; 351-400: 50 u. 07/08/19 21 022 Inactive lisinopril 5 mg tablet RxNorm: 564865 Take 1 Tablet(s) Oral QD 07/08/19 021 Inactive Novolog Flexpen U-100 Insulin aspart 100 unit/mL (3 mL) subcutaneous RxNorm: 7659212 Inject 85 Unit(s) Subcutaneous TID 07/08/19 022 Inactive metoprolol succinate ER 200 mg tablet,extended release 24 hr RxNorm: 769523 Take 1 Tablet(s) Oral QD 07/08/19 21 021 Inactive Vitamin D3 25 mcg (1,000 unit) tablet RxNorm: 780322 Take 1 Tablet(s) Oral QD 07/08/19 021 Inactive isosorbide dinitrate 30 mg tablet RxNorm: 029922 Take 1 Tablet(s) Oral QD 07/08/19 21 021 Inactive Levemir FlexTouch U-100 Insulin 100 unit/mL (3 mL) subcutaneous pen RxNorm: 604482 Inject 140 Unit(s) Subcutaneous BID 07/08/19 021 Inactive venlafaxine 75 mg tablet RxNorm: 053914 Take 1 Tablet(s) Oral QD 07/08/19 21 021 Inactive acetaminophen 500 mg tablet RxNorm: 366475 Take 1 Tablet(s) Oral TID as needed for headache 06/18/19 21 021 Inactive acetaminophen 500 mg tablet RxNorm: 613905 Take 1 Tablet(s) Oral TID as needed for headache 06/18/19 21 021 Inactive Lyrica 100 mg capsule RxNorm: 862115 Take 1 Capsule(s) Oral QHS every night at bedtime 06/11/19 21 021 Inactive Lyrica 50 mg capsule RxNorm: 331935 Take 1 Capsule(s) Oral QAM every morning 06/10/19 21 021 Inactive hydrocortisone 2.5 % topical cream RxNorm: 338847 Apply to bilateral groin creases Topical BID 05/15/20 20 021 Inactive clotrimazole 1 % topical cream RxNorm: 439175 Apply to bilateral groin areas Topical BID 05/15/20 20 021 Inactive Lyrica 50 mg capsule RxNorm: 848059 Take 1 Capsule(s) Oral QAM every morning 05/14/20 20 020 Inactive Lyrica 100 mg capsule RxNorm: 447394 Take 1 Capsule(s) Oral QHS every night [...] Inactive Nystop 100,000 unit/gram topical powder RxNorm: 813714 Apply to abd folds, under breasts and L side of groin Topical BID x 14 days, then BID PRN 04/08/20 20 Inactive dx: yeast dermatitis Lyrica 100 mg capsule RxNorm: 552194 Take 1 Capsule(s) Oral QHS every night at bedtime 03/13/20 Inactive Lyrica 50 mg capsule RxNorm: 140977 Take 1 Capsule(s) Oral QAM every morning 03/13/20 Inactive ketoconazole 2 % shampoo RxNorm: 898384 Apply Topical two times a week with showers 03/11/20 Inactive cholecalciferol (vitamin D3) 50 mcg (2,000 unit) tablet RxNorm: 641247 Take 1 Tablet(s) Oral QD 03/11/20 Inactive Zetia 10 mg tablet RxNorm: 731991 Take 1 Tablet(s) Oral QD 03/07/20 20 Inactive Zetia 10 mg tablet RxNorm: 345088 Take 1 Tablet(s) Oral QD 03/07/20 20 Inactive Lyrica 50 mg capsule RxNorm: 307696 Take 1 Capsule(s) Oral QAM every morning 02/15/20 20 Inactive Lyrica 100 mg capsule RxNorm: 957381 Take 1 Capsule(s) Oral QHS every night at bedtime 02/15/20 Inactive Lyrica 100 mg capsule RxNorm: 627592 Take 1 Capsule(s) Oral QHS every night at bedtime 02/15/20 20 Inactive Lyrica 50 mg capsule RxNorm: 064343 Take 1 Capsule(s) Oral QAM every morning 02/15/20 20 Inactive venlafaxine ER 75 mg capsule,extended release 24 hr RxNorm: 192868 Take 3 Capsule(s) Oral QD 06/12/19 Active polyethylene glycol 3350 17 gram/dose oral powder RxNorm: 091769 Take 17=1 capful Gram(s) Oral BID as needed mix with 4-8oz of liquid 06/12/19 Active Levemir FlexTouch U-100 Insulin 100 unit/mL (3 mL) subcutaneous pen RxNorm: 337281 Inject 80 Unit(s) Subcutaneous BID 07/14/19 23 023 Inactive loperamide 2 mg capsule RxNorm: 166008 Take 1 Capsule(s) Oral QID as needed 06/12/19 Active Novolog Flexpen U-100 Insulin aspart 100 unit/mL (3 mL) subcutaneous RxNorm: 2247390 Insert 30 Unit(s) Subcutaneous TID with meals [...] Encounter Performer Location Location Address Codes Date (08447) DOMICIL VISIT EST PAT Diagnosis: Type 2 [...] History of anemia due to CKD[ICD10: N18.9] Tapan Shirley [facility] [address] [address] [place] [address] CPT-4: 85972 12/09/2021 Plan of Care Planned Activity Notes Codes Status Date Referral: [facility]: [phone] [id number] [place] Referral Records Received 09/21/2022 Referral: [facility]: [phone] [id number] [place] Referral Completed 05/28/2021 Referral: General Cardiology [...] attention.??Sister Jyotsna involved in his care cell# [phone]??Guardian: Don (tapan met in person 09/01/21), now has Lex[facility] (same group as don)Lab Schedule: * 10/06/2022 Diabetes BGs reviewed and staff reports [...] consult on patient's worsening depression and isolation.?? . 12/09/2021
--- OUTSIDE RECORDS SUMMARY | 2022-11-09 23:27 | XMS_ITS | CCD ---
Author Name Tapan Shirley PA-C Address [address] [facility] [address] [place] [address] Phone Organization [facility] Phone Care Team Providers Care Station Chief Name Role Phone Tapan Shirley PA-C Primary Care Provider Unavailabl e Tapan Shirley PA-C Chronic Care Management Unavaila ble Summary Purpose DataExchange Insurance Providers Payer name Policy type / Coverage type Covered constitution party ID Effective Begin Date Effective End Date Medicare [place] Medicare Part B [id number] Unknown Unknown Medicaid [place] Medicare Part B [id number] Unknown Unknown Family history Sister Brittany Suggs [...] Intermediate 09/03/[address]: 3701950 Non-Smoker / No History of Smoking 09/02/[address]: 304977543 No Alcohol Consum ption 09/02/2020 Allergies, Adverse Reactions, Alerts Substance Reaction Codes Entered Date Inactivated Date Status LISINOPRIL RxNorm: 94214 02/12/2020 No Inactive Da te Active Metformin HCl Unknown 02/12/2020 No Inactive Cristiano e Active Problems Condition Codes Effective Dates Condition St atus Coronary artery disease invo lving [place] coronary artery of [place] heart, angina presence unspecified ICD-10: I25.10 ICD-9: 414.01 01/06/2022 Active Dandruff in adult ICD-10: L21.0 ICD-9: 690.18 01/06/2022 Active Hyperlipidemia associated wi th type 2 diabetes mellitus ICD-10: E11.69 ICD-9: 250.80 01/06/2022 Active Hypertensive heart disease w ithout heart failure ICD-10: I11.9 ICD-9: 402.90 01/06/2022 Active 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 ICD-10: Z79.4 01/06 Active Onychogryposis ICD-10: L60.2 ICD-9: 703.8 01/06/2022 Active Stage 2 chronic kidney disea se due to type 2 diabetes mellitus ICD-10: E11.22 ICD-9: 250.40 01/06/2022 Active Type 2 diabetes mellitus wit h diabetic polyneuropathy, with long-term current use of insulin ICD-10: E11.42 ICD-9: 250.60 01/06/2022 Active Hypertension associated with diabetes ICD-10: E11.59 ICD-9: 250.80 01/06/2022 Resolved Depression ICD-10: F32.9 ICD-9: 311 12/09/2021 Active [...] ICD-10: Z7 2.89 ICD-9: 312.89 11/11/2021 Active Preventative health care ICD-10: Z00.00 ICD-9: V70.0 11/11/2021 Active Seizure disorder ICD-10: G40.909 ICD-9: 345.90 11/11/2021 Active Lower extremity edema ICD-10: R60.0 ICD-9: 782.3 10/07/2021 Active Amputated toe of right foot ICD-10: S98. 131A ICD-9: 895.0 09/01/2021 Active Muscular pain ICD-10: M79.10 ICD-9: 729.1 08/04/2021 Active Pain of right heel ICD-10: M79.671 ICD-9: 729.5 08/04/2021 Active DVT (deep venous thrombosis) ICD-10: I82 [...] Fill Instructions Lyrica 100 mg capsule RxNorm: 029022 Take 1 Capsule(s) Oral QAM every morning 01/08/20 22 022 Inactive d/c 50mg dose acetaminophen 500 mg tablet RxNorm: 818119 Take 1 Tablet(s) Oral TID 01/08/20 22 023 Active d/c PRN order Lyrica 150 mg capsule RxNorm: 378847 Take 1 Capsule(s) Oral QHS every night at bedtime 01/08/20 22 023 Inactive d/c 100mg dose polyethylene glycol 3350 17 gram/dose oral powder RxNorm: 311092 Take 17=1 capful Gram(s) Oral QD mix with 4-8oz of liquid 01/08/20 22 023 Active take this in addition to BID prn order Abilify 5 mg tablet RxNorm: 178620 Take 1 Tablet(s) Oral QD take 1 tab po QD #30 refill 5 dx: MDD 12/12/19 22 022 Inactive Abilify 5 mg tablet RxNorm: 264681 Take 1 Tablet(s) Oral QD take 1 tab po QD #30 refill 5 dx: MDD 12/12/19 22 022 Inactive chlorthalidone 25 mg tablet RxNorm: 066542 Take 1 Tablet(s) Oral QAM every morning 12/10/19 22 023 Active Novolog Flexpen U-100 Insulin aspart 100 unit/mL (3 mL) subcutaneous RxNorm: 1309547 Inject 42 Unit(s) Subcutaneous TID in addition to sliding scale 12/10/19 22 022 Inactive d/c 36u pregabalin 50 mg capsule RxNorm: 448245 Take 1 Capsule(s) Oral QAM every morning 11/12/19 22 022 Inactive tetanus-diphtheria toxoids-Td 2 Lf unit-2 Lf unit/0.5 mL IM suspension RxNorm: 139 Take 0.5 Miscellaneous Intramuscular 11/12/19 22 022 Inactive need tdap - nursing to administer upon arrival pregabalin 50 mg capsule RxNorm: 496035 Take 1 Capsule(s) Oral QAM every morning 10/16/19 22 022 Inactive pregabalin 50 mg capsule RxNorm: 364704 Take 1 Capsule(s) Oral QAM every morning 10/16/19 22 022 Inactive pregabalin 50 mg capsule RxNorm: 822845 1 Capsule(s) Oral QAM every morning 10/15/19 22 022 Inactive Shingrix (PF) 50 mcg/0.5 mL intramuscular suspension, kit RxNorm: 9996365 Administer 1/2 Milliliter(s) Intramuscular one time Nursing please administer upon arrival and once administered 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, sand screener operator, 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 10/09/19 22 022 Inactive shingrix step 1 Shingrix (PF) 50 mcg/0.5 mL intramuscular suspension, kit RxNorm: 7923944 Administer 1/2 Milliliter(s) Intramuscular one time Nursing please administer upon arrival and once administered 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, sand screener operator, 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 10/09/19 22 022 Inactive shingrix step 1 Novolog Flexpen U-100 Insulin aspart 100 unit/mL (3 mL) subcutaneous RxNorm: 2746525 Inject 10 Unit(s) Subcutaneous QHS every night at bedtime with nighttime snack 10/08/19 22 022 Inactive cholecalciferol (vitamin D3) 1,250 mcg (50,000 unit) capsule RxNorm: 196827 Take 1 Capsule(s) Oral QW once a [...] 50 mcg/0.5 mL intramuscular suspension, kit RxNorm: 1082969 ADMINISTER 2-DOSE SERIES PER CDC GUIDELINES 10/08/19 22 Active Shingrix (PF) 50 mcg/0.5 mL intramuscular suspension, kit RxNorm: 3191534 ADMINISTER 2-DOSE SERIES PER CDC GUIDELINES 10/08/19 22 Inactive Novolog Flexpen U-100 Insulin aspart 100 unit/mL (3 mL) subcutaneous RxNorm: 0723311 Inject 36 Unit(s) Subcutaneous TID in addition to sliding scale 10/08/19 22 Inactive Novofine Autocover 30 gauge x 1/3 needle RxNorm: Use 1 Miscellaneous UD as directed Use 1 needle as directed to administer insulin 5 times a day Dx:E11.42. 10/03/19 Inactive ok to substitute with any covered alternative pen needle benzoyl peroxide 10 % topical cleanser RxNorm: 037638 Apply 1 Application Topical QD apply to face, wash rinse and dry once daily (may change to QOD if drying) 08/19/19 22 022 Inactive (%covered by insurance) #60ml refill 11 dx: acne Lyrica 100 mg capsule RxNorm: 788525 Take 1 Capsule(s) Oral QHS every night at bedtime Take 1 capsule by mouth once daily at bedtime 08/19/19 22 022 Inactive benzoyl peroxide 10 % topical cleanser RxNorm: 494303 Apply 1 Application Topical QD apply to face, wash rinse and dry once daily (may change to QOD if drying) 08/19/19 22 022 Inactive (%covered by insurance) #60ml refill 11 dx: acne benzoyl peroxide 10 % topical cleanser RxNorm: 154515 Apply 1 Application Topical QD apply to face, wash rinse and dry once daily (may change to QOD if drying) 08/19/19 22 022 Inactive (%covered by insurance) #60ml refill 11 dx: acne Lyrica 50 mg capsule RxNorm: 478247 Take 1 Capsule(s) Oral QAM every morning Take 1 capsule by mouth once daily 08/19/19 22 022 Inactive benzoyl peroxide 10 % topical cleanser RxNorm: 814998 Apply 1 Application Topical QD apply to face, wash rinse and dry once daily (may change to QOD if drying) 08/19/19 22 Inactive (%covered by insurance) #60ml refill 11 dx: acne Lyrica 100 mg capsule RxNorm: 965365 Take 1 Capsule(s) Oral QHS every night at bedtime Take 1 capsule by mouth once daily at bedtime 08/16/19 22 022 Inactive Lyrica 50 mg capsule RxNorm: 861724 Take 1 Capsule(s) Oral QAM every morning Take 1 capsule by mouth once daily 08/16/19 22 022 Inactive Levemir FlexTouch U-100 Insulin 100 unit/mL (3 mL) subcutaneous pen RxNorm: 852416 Inject 86 Unit(s) Subcutaneous BID 08/05/19 22 022 Inactive d/c 83units BID Lyrica 100 mg capsule RxNorm: 832147 Take 1 Capsule(s) Oral QHS every night at bedtime Take 1 capsule by mouth once daily at bedtime 07/14/19 22 022 Inactive Lyrica 50 mg capsule RxNorm: 283763 Take 1 Capsule(s) Oral QAM every morning Take 1 capsule by mouth once daily 07/14/19 22 022 Inactive Levemir FlexTouch U-100 Insulin 100 unit/mL (3 mL) subcutaneous pen RxNorm: 167227 Inject 83 Unit(s) Subcutaneous BID 07/08/19 22 [...] test strip hydralazine 50 mg tablet RxNorm: 363983 Take 1 Tablet(s) Oral QID 05/05/20 21 Inactive isosorbide mononitrate ER 30 mg tablet,extended release 24 hr RxNorm: 080097 Take 1 Tablet(s) Oral QD 05/05/20 No Stop Date Active venlafaxine ER 225 mg tablet,extended release 24 hr RxNorm: 726737 Take 1 Tablet(s) Oral QD 05/05/20 21 021 Inactive venlafaxine ER 225 mg tablet,extended release 24 hr RxNorm: 056080 Take 1 Tablet(s) Oral QD 05/05/20 21 022 Inactive hydralazine 50 mg tablet RxNorm: 208161 Take 1 Tablet(s) Oral QID 05/05/20 21 Inactive aspirin 81 mg tablet,delayed release RxNorm: 339563 Take 1 Tablet(s) Oral QD 03/31/20 21 Inactive Zetia 10 mg tablet RxNorm: 413120 Take 1 Tablet(s) Oral QD 03/31/20 21 11/09/2 022 Inactive Vitamin D2 1,250 mcg (50,000 unit) capsule RxNorm: 7824018 Take 1 Capsule(s) Oral QW once a week x 12 weeks 03/31/20 Inactive Vitamin D2 1,250 mcg (50,000 unit) capsule RxNorm: 7318357 Take 1 Capsule(s) Oral QW once a week 03/31/20 Inactive Zetia 10 mg tablet RxNorm: 359400 Take 1 Tablet(s) Oral QD 03/31/20 Inactive hydralazine 25 mg tablet RxNorm: 300250 Take 1 Tablet(s) Oral QID 03/31/20 Inactive hydralazine 25 mg tablet RxNorm: 625615 Take 1 Tablet(s) Oral QID 03/31/20 Inactive hydralazine 10 mg tablet RxNorm: 581544 Take 1 Tablet(s) Oral QID 03/03/20 021 Inactive cephalexin 500 mg tablet RxNorm: 864135 Take 1 Tablet(s) Oral QID 02/27/20 021 Inactive cephalexin 500 mg tablet RxNorm: 724431 Take 1 Tablet(s) Oral QID 02/27/20 021 Inactive lisinopril 40 mg tablet RxNorm: 817314 Take 1 Tablet(s) Oral QD 02/11/20 023 Inactive Eliquis 5 mg tablet RxNorm: 0117585 Take 1 Tablet(s) Oral BID 01/05/20 022 Inactive Eliquis 5 mg tablet RxNorm: 2619787 Take 2 Tablet(s) Oral QD 01/01/20 021 Inactive Lyrica 50 mg capsule RxNorm: 836706 Take 1 Capsule(s) Oral QAM every morning 12/24/19 021 Inactive Lyrica 100 mg capsule RxNorm: 594520 Take 1 Capsule(s) Oral QHS every night at bedtime 12/24/19 021 Inactive clotrimazole 1 % topical cream RxNorm: 673655 Apply to right foot and toes Topical BID 12/04/19 21 023 Inactive metoprolol succinate ER 200 mg tablet,extended release 24 hr RxNorm: 630482 Take 1 Tablet(s) Oral QD 12/04/19 21 023 Inactive ciprofloxacin 500 mg tablet RxNorm: 142382 Take 1 Tablet(s) Oral QD 11/30/19 21 021 Inactive DX ofloxacin otic drops Accu-Chek Guide test strips RxNorm: USE 1 TO CHECK GLUCOSE 4 TIMES DAILY AND NEEDED 11/15/19 21 023 Inactive Blood Glucose Test strips RxNorm: Use 1 Test Strip QID at PRN 11/05/19 21 023 Inactive E11.42 lisinopril 30 mg tablet RxNorm: 633204 Take 1 Tablet(s) Oral QD 10/30/19 021 Inactive lisinopril 20 mg tablet RxNorm: 431162 Take 1 Tablet(s) Oral QD 10/23/19 021 Inactive lisinopril 20 mg tablet RxNorm: 926085 Take 1 Tablet(s) Oral QD 10/23/19 21 021 Inactive lisinopril 10 mg tablet RxNorm: 612406 Take 1 Tablet(s) Oral QD 10/02/19 021 Inactive icosapent ethyl 1 gram capsule RxNorm: 2903700 Take 2 Capsule(s) (2 gm) Oral BID with meals 09/12/19 022 Inactive Okay to dispense one 2gm tab if you have that available. icosapent ethyl 1 gram capsule RxNorm: 5957584 Take 2 Capsule(s) Oral BID 09/12/19 21 021 Inactive Okay to dispense one 2gm tab if you have that available. amlodipine 10 mg tablet RxNorm: 088652 Take 1 Tablet(s) Oral QD 09/04/19 21 022 Inactive aspirin 81 mg tablet,delayed release RxNorm: 757763 Take 1 Tablet(s) Oral QD 09/04/19 21 021 Inactive Levemir FlexTouch U-100 Insulin 100 unit/mL (3 mL) subcutaneous pen RxNorm: 391974 Inject 150 Unit(s) Subcutaneous BID 09/04/19 21 022 Inactive venlafaxine ER 150 mg tablet,extended release 24 hr RxNorm: 933937 Take 1 Tablet(s) Oral QD 09/04/19 21 021 Inactive clotrimazole-betame thasone 1 %-0.05 % topical cream RxNorm: 223528 Apply to rash on red area on left abdomen/chest Topical BID 08/10/19 21 021 Inactive amlodipine 5 mg tablet RxNorm: 503176 Take 1 Tablet(s) Oral QD 07/31/19 21 Inactive cephalexin 500 mg tablet RxNorm: 263154 Take 1 Tablet(s) Oral BID BID - Twice Daily 07/31/19 21 021 Inactive Start 08/01/20 pantoprazole 40 mg tablet,delayed release RxNorm: 926552 Take 1 Tablet(s) Oral QAM every morning 07/08/19 21 022 Inactive senna 8.6 mg tablet RxNorm: 468932 Take 1 Tablet(s) Oral QD 07/08/19 21 022 Inactive pravastatin 80 mg tablet RxNorm: 429628 Take 1 Tablet(s) Oral QHS every night at bedtime 07/08/19 022 Inactive clotrimazole 1 % topical cream RxNorm: 314686 Apply to bilateral groin areas Topical BID 07/08/19 21 022 Inactive carbamazepine 200 mg tablet RxNorm: 061895 Take 1 Tablet(s) Oral BID 07/08/19 21 022 Inactive torsemide 20 mg tablet RxNorm: 626602 Take 1 Tablet(s) Oral QD 07/08/19 21 023 Inactive clopidogrel 75 mg tablet RxNorm: 478468 Take 1 Tablet(s) Oral QD 07/08/19 21 021 Inactive Blood Glucose Test strips RxNorm: Use 1 Test Strip QID at PRN 07/08/19 21 021 Inactive E11.42 Novolog Flexpen U-100 Insulin aspart 100 unit/mL (3 mL) subcutaneous RxNorm: 9634366 Administer per sliding scale Milliliter(s) Subcutaneous TID 151-200: 10 u; 201-250: 20 u; 251-300: 30 u; 301-350: 40 u; 351-400: 50 u. 07/08/19 022 Inactive lisinopril 5 mg tablet RxNorm: 046479 Take 1 Tablet(s) Oral QD 07/08/19 021 Inactive Novolog Flexpen U-100 Insulin aspart 100 unit/mL (3 mL) subcutaneous RxNorm: 1200826 Inject 85 Unit(s) Subcutaneous TID 07/08/19 Inactive metoprolol succinate ER 200 mg tablet,extended release 24 hr RxNorm: 438418 Take 1 Tablet(s) Oral QD 07/08/19 Inactive Vitamin D3 25 mcg (1,000 unit) tablet RxNorm: 344971 Take 1 Tablet(s) Oral QD 07/08/19 Inactive isosorbide dinitrate 30 mg tablet RxNorm: 800976 Take 1 Tablet(s) Oral QD 07/08/19 Inactive Levemir FlexTouch U-100 Insulin 100 unit/mL (3 mL) subcutaneous pen RxNorm: 452355 Inject 140 Unit(s) Subcutaneous BID 07/08/19 Inactive venlafaxine 75 mg tablet RxNorm: 503357 Take 1 Tablet(s) Oral QD 07/08/19 Inactive acetaminophen 500 mg tablet RxNorm: 499667 Take 1 Tablet(s) Oral TID as needed for headache 06/18/19 Inactive acetaminophen 500 mg tablet RxNorm: 669459 Take 1 Tablet(s) Oral TID as needed for headache 06/18/19 Inactive Lyrica 100 mg capsule RxNorm: 226395 Take 1 Capsule(s) Oral QHS every night at bedtime 06/11/19 Inactive Lyrica 50 mg capsule RxNorm: 755399 Take 1 Capsule(s) Oral QAM every morning 06/10/19 021 Inactive hydrocortisone 2.5 % topical cream RxNorm: 723623 Apply to bilateral groin creases Topical BID 05/15/20 20 021 Inactive clotrimazole 1 % topical cream RxNorm: 317771 Apply to bilateral groin areas Topical BID 05/15/20 20 021 Inactive Lyrica 50 mg capsule RxNorm: 164786 Take 1 Capsule(s) Oral QAM every morning 05/14/20 20 Inactive Lyrica 100 mg capsule RxNorm: 216965 Take 1 Capsule(s) Oral QHS every night [...] Inactive Nystop 100,000 unit/gram topical powder RxNorm: 320942 Apply to abd folds, under breasts and L side of groin Topical BID x 14 days, then BID PRN 04/08/20 20 021 Inactive dx: yeast dermatitis Lyrica 100 mg capsule RxNorm: 104180 Take 1 Capsule(s) Oral QHS every night at bedtime 03/13/20 20 020 Inactive Lyrica 50 mg capsule RxNorm: 884966 Take 1 Capsule(s) Oral QAM every morning 03/13/20 20 Inactive ketoconazole 2 % shampoo RxNorm: 513160 Apply Topical two times a week with showers 03/11/20 20 021 Inactive cholecalciferol (vitamin D3) 50 mcg (2,000 unit) tablet RxNorm: 374794 Take 1 Tablet(s) Oral QD 03/11/20 20 021 Inactive Zetia 10 mg tablet RxNorm: 065101 Take 1 Tablet(s) Oral QD 03/07/20 20 021 Inactive Zetia 10 mg tablet RxNorm: 020438 Take 1 Tablet(s) Oral QD 03/07/20 Inactive Lyrica 50 mg capsule RxNorm: 437386 Take 1 Capsule(s) Oral QAM every morning 02/15/20 Inactive Lyrica 100 mg capsule RxNorm: 790461 Take 1 Capsule(s) Oral QHS every night at bedtime 02/15/20 Inactive Lyrica 100 mg capsule RxNorm: 660070 Take 1 Capsule(s) Oral QHS every night at bedtime 02/15/20 Inactive Lyrica 50 mg capsule RxNorm: 196876 Take 1 Capsule(s) Oral QAM every morning 02/15/20 Inactive venlafaxine ER 75 mg capsule,extended release 24 hr RxNorm: 557175 Take 3 Capsule(s) Oral QD 06/12/19 Active polyethylene glycol 3350 17 gram/dose oral powder RxNorm: 419648 Take 17=1 capful Gram(s) Oral BID as needed mix with 4-8oz of liquid 06/12/19 Active Levemir FlexTouch U-100 Insulin 100 unit/mL (3 mL) subcutaneous pen RxNorm: 424573 Inject 80 Unit(s) Subcutaneous BID 07/14/19 23 023 Inactive loperamide 2 mg capsule RxNorm: 846156 Take 1 Capsule(s) Oral QID as needed 06/12/19 Active Novolog Flexpen U-100 Insulin aspart 100 unit/mL (3 mL) subcutaneous RxNorm: 1586281 Insert 30 Unit(s) Subcutaneous TID with meals [...] 01/06/2022 DEBRIDE NAIL 6 OR MORE CPT-4: 25019 Vital Signs Date Vital 01/06/2022 Blood Pressure 1: 147/72 Code: 8480-6 Heart Rate 1: 72 bpm Code: 8867-4 Respiratory Rate: 17 bpm Temperature: 36.4 (C) / 97.5 (F) Reason For Visit No Reason For Visit data Encounters Encounter Performer Location Location Address Codes Date (22111) DOMICIL VISIT EST PAT Diagnosis: Dandruff in adult[ICD10: L21.0] Diagnosis: Onychogryposis[ICD10: L60.2] Diagnosis: Type 2 diabetes mellitus with diabetic polyneuropathy, with long-term current use of insulin[ICD10: E11.42] Diagnosis: Hyperlipidemia associated with type 2 diabetes mellitus[ICD10: E11.69] Diagnosis: Hypertension associated with diabetes[ICD10: E11.59] Diagnosis: Stage 2 chronic 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[ICD10: E11.22] Diagnosis: Hypertensive heart disease without heart failure[ICD10: I11.9] Diagnosis: long-term (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 insulin[ICD10: Z79.4] Diagnosis: Coronary artery disease involving [place] coronary artery of [place] heart, angina presence unspecified[ICD10: I25.10] Tapan Shirley [place] [address] [address] [place] [address] CPT-4: 38754 01/06/2022 Plan of Care Planned Activity Notes Codes Status Date Referral: [facility] [place]: [address] [id number] [place] Referral Records Received 09/21/2022 Referral: [facility] [place]: [address] [id number] [place] Referral Completed 05/28/2021 Referral: General Cardiology [...] attention.??Sister Jyotsna involved in his care cell# [phone]??Guardian: Don (tapan met in person 09/01/21), now has Lexii (same group as don)Lab Schedule: Mar-* 10/06/2022 Onychogryposis (*8*) toenails debrided today, (*4*) on left foot, (*4*) on right foot. Medical grade nail clippers and electric dremel used to significantly reduce length & thickness. Anti-fungal treatment options reviewed, discussion deferred as treatment not appropriate or beneficial to patient. Patient tolerated procedure well. Ischemic Heart Disease schedule f/u with nurse paralegal Diabetes BG log reviewed, much improved since 12/09 when novolog increased from 36 to 42 TID with meals. Highest 388, lowest 109, most 180-250 with exception of yesterday 01/05 where BG were 321, 229, 366, and 388. Will make no changes since patient has a f/u with endo via telehealth on jan 13.?? Hypertension Patient to schedule f/u with nurse paralegal due CP when laying down. Consider GERD being cause as well. Encouraged avoidance of foods that make indigestion worse and not to lay down for at least 30 minutes after eating.Continue PPI. BPs reviewed and variable but mostly 150/70s. Likely needs a dose adjustment, would like nurse paralegal to weigh in.?? 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 . 01/06/2022
--- OUTSIDE RECORDS SUMMARY | 2022-11-09 23:27 | XMS_ITS | CCD ---
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 Name Role Phone Tapan Shirley PA-C Primary Care Provider Unavailabl e Tapan Shirley PA-C Chronic Care Management Unavaila ble Summary Purpose DataExchange Insurance Providers Payer name Policy type / Coverage type Covered democrat ID Effective Begin Date Effective End Date [place] Medicare Part B [id number] Unknown Unknown Medicaid [place] Medicare Part B [id number] Unknown Unknown Family history Sister Brittany Suggs Diagnosis Age At Onset No Family Disease Entered N/A Runs in the family Diagnosis Age At Onset No Known Diseases N/A Sister Blanka Mcduffie Diagnosis Age At Onset No Family Disease Entered N/A Social History Social History Element Codes Description Effec tive Dates Marital status Unknown Single 10/07/2021 Living arrangements Unknown Prison 09/03/[address]: 7302160 Non-Smoker / No History of Smoking 09/02/[address]: 209679765 No Alcohol Consum ption 09/02/2020 Allergies, Adverse Reactions, Alerts Substance Reaction Codes Entered Date Inactivated Date Status LISINOPRIL RxNorm: 52292 02/12/2020 No Inactive Da te Active Metformin HCl Unknown 02/12/2020 No Inactive Cristiano e Active Problems Condition Codes Effective Dates Condition St atus BMI 60.0-69.9, adult ICD-10: Z68.44 ICD-9: V85.44 02/10/2022 Active Hx of deep venous thrombosis ICD-10: [...] immunization ICD-10: Z23 ICD-9: V03.89 02/10/2022 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 ICD-10: Z79.4 02/10 [...] 50 mcg/0.5 mL intramuscular suspension, kit RxNorm: 6180337 Administer 1/2 Milliliter(s) Intramuscular QD one time shingrix step 2 ( step 1 given 11/04/21) WITH needle - Nursing please administer upon arrival and once administered 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, dipper operator, 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, and lot# so we can update [facility] 02/18/20 22 022 Inactive dispense with needle Shingrix (PF) 50 mcg/0.5 mL intramuscular suspension, kit RxNorm: 6759021 Administer 1/2 Milliliter(s) Intramuscular QD one time shingrix step 2 ( step 1 given 11/04/21) WITH needle - Nursing please administer upon arrival and once administered 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, dipper operator, 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, and lot# so we can update [facility] 02/18/20 22 022 Inactive dispense with needle acetaminophen 500 mg tablet RxNorm: 995073 Take 1 Tablet(s) Oral TID 01/08/20 22 023 Active d/c PRN order Lyrica 150 mg capsule RxNorm: 194486 Take 1 Capsule(s) Oral QHS every night at bedtime 01/08/20 22 023 Inactive d/c 100mg dose polyethylene glycol 3350 17 gram/dose oral powder RxNorm: 549367 Take 17=1 capful Gram(s) Oral QD mix with 4-8oz of liquid 01/08/20 22 023 Active take this in addition to BID prn order Lyrica 100 mg capsule RxNorm: 177972 Take 1 Capsule(s) Oral QAM every morning 01/08/20 22 022 Inactive d/c 50mg dose Abilify 5 mg tablet RxNorm: 950768 Take 1 Tablet(s) Oral QD take 1 tab po QD #30 refill 5 dx: MDD 12/12/19 22 022 Inactive Abilify 5 mg tablet RxNorm: 905689 Take 1 Tablet(s) Oral QD take 1 tab po QD #30 refill 5 dx: MDD 12/12/19 22 022 Inactive chlorthalidone 25 mg tablet RxNorm: 438235 Take 1 Tablet(s) Oral QAM every morning 12/10/19 22 023 Active Novolog Flexpen U-100 Insulin aspart 100 unit/mL (3 mL) subcutaneous RxNorm: 3826002 Inject 42 Unit(s) Subcutaneous TID in addition to sliding scale 12/10/19 22 022 Inactive d/c 36u pregabalin 50 mg capsule RxNorm: 232613 Take 1 Capsule(s) Oral QAM every morning 11/12/19 022 Inactive tetanus-diphtheria toxoids-Td 2 Lf unit-2 Lf unit/0.5 mL IM suspension RxNorm: 139 Take 0.5 Miscellaneous Intramuscular 11/12/19 22 022 Inactive need tdap - nursing to administer upon arrival pregabalin 50 mg capsule RxNorm: 329589 Take 1 Capsule(s) Oral QAM every morning 10/16/19 22 022 Inactive pregabalin 50 mg capsule RxNorm: 114239 Take 1 Capsule(s) Oral QAM every morning 10/16/19 22 022 Inactive pregabalin 50 mg capsule RxNorm: 832822 1 Capsule(s) Oral QAM every morning 10/15/19 22 022 Inactive Shingrix (PF) 50 mcg/0.5 mL intramuscular suspension, kit RxNorm: 3269827 Administer 1/2 Milliliter(s) Intramuscular one time Nursing please administer upon arrival and once administered 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, dipper operator, 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 10/09/19 22 022 Inactive shingrix step 1 Shingrix (PF) 50 mcg/0.5 mL intramuscular suspension, kit RxNorm: 6814926 Administer 1/2 Milliliter(s) Intramuscular one time Nursing please administer upon arrival and once administered 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, dipper operator, 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 10/09/19 22 022 Inactive shingrix step 1 Novolog Flexpen U-100 Insulin aspart 100 unit/mL (3 mL) subcutaneous RxNorm: 2156064 Inject 10 Unit(s) Subcutaneous QHS every night at bedtime with nighttime snack 10/08/19 22 022 Inactive cholecalciferol (vitamin D3) 1,250 mcg (50,000 unit) capsule RxNorm: 139722 Take 1 Capsule(s) Oral QW once a [...] 50 mcg/0.5 mL intramuscular suspension, kit RxNorm: 0689065 ADMINISTER 2-DOSE SERIES PER CDC GUIDELINES 10/08/19 22 022 Active Shingrix (PF) 50 mcg/0.5 mL intramuscular suspension, kit RxNorm: 4191849 ADMINISTER 2-DOSE SERIES PER CDC GUIDELINES 10/08/19 22 022 Inactive Novolog Flexpen U-100 Insulin aspart 100 unit/mL (3 mL) subcutaneous RxNorm: 2260494 Inject 36 Unit(s) Subcutaneous TID in addition to sliding scale 10/08/19 Inactive Novofine Autocover 30 gauge x 1/3 needle RxNorm: Use 1 Miscellaneous UD as directed Use 1 needle as directed to administer insulin 5 times a day Dx:E11.42. 10/03/19 22 Inactive ok to substitute with any covered alternative pen needle benzoyl peroxide 10 % topical cleanser RxNorm: 546518 Apply 1 Application Topical QD apply to face, wash rinse and dry once daily (may change to QOD if drying) 08/19/19 22 022 Inactive (%covered by insurance) #60ml refill 11 dx: acne Lyrica 100 mg capsule RxNorm: 997386 Take 1 Capsule(s) Oral QHS every night at bedtime Take 1 capsule by mouth once daily at bedtime 08/19/19 022 Inactive benzoyl peroxide 10 % topical cleanser RxNorm: 372416 Apply 1 Application Topical QD apply to face, wash rinse and dry once daily (may change to QOD if drying) 08/19/19 22 022 Inactive (%covered by insurance) #60ml refill 11 dx: acne benzoyl peroxide 10 % topical cleanser RxNorm: 534906 Apply 1 Application Topical QD apply to face, wash rinse and dry once daily (may change to QOD if drying) 08/19/19 22 022 Inactive (%covered by insurance) #60ml refill 11 dx: acne Lyrica 50 mg capsule RxNorm: 659892 Take 1 Capsule(s) Oral QAM every morning Take 1 capsule by mouth once daily 08/19/19 22 022 Inactive benzoyl peroxide 10 % topical cleanser RxNorm: 706957 Apply 1 Application Topical QD apply to face, wash rinse and dry once daily (may change to QOD if drying) 08/19/19 22 022 Inactive (%covered by insurance) #60ml refill 11 dx: acne Lyrica 100 mg capsule RxNorm: 539644 Take 1 Capsule(s) Oral QHS every night at bedtime Take 1 capsule by mouth once daily at bedtime 08/16/19 22 022 Inactive Lyrica 50 mg capsule RxNorm: 883618 Take 1 Capsule(s) Oral QAM every morning Take 1 capsule by mouth once daily 08/16/19 22 022 Inactive Levemir FlexTouch U-100 Insulin 100 unit/mL (3 mL) subcutaneous pen RxNorm: 766879 Inject 86 Unit(s) Subcutaneous BID 08/05/19 22 022 Inactive d/c 83units BID Lyrica 100 mg capsule RxNorm: 036353 Take 1 Capsule(s) Oral QHS every night at bedtime Take 1 capsule by mouth once daily at bedtime 07/14/19 22 022 Inactive Lyrica 50 mg capsule RxNorm: 445852 Take 1 Capsule(s) Oral QAM every morning Take 1 capsule by mouth once daily 07/14/19 22 022 Inactive Levemir FlexTouch U-100 Insulin 100 unit/mL (3 mL) subcutaneous pen RxNorm: 138424 Inject 83 Unit(s) Subcutaneous BID 07/08/19 22 [...] test strip hydralazine 50 mg tablet RxNorm: 669637 Take 1 Tablet(s) Oral QID 05/05/20 21 Inactive isosorbide mononitrate ER 30 mg tablet,extended release 24 hr RxNorm: 820438 Take 1 Tablet(s) Oral QD 05/05/20 No Stop Date Active venlafaxine ER 225 mg tablet,extended release 24 hr RxNorm: 544770 Take 1 Tablet(s) Oral QD 05/05/20 021 Inactive venlafaxine ER 225 mg tablet,extended release 24 hr RxNorm: 074020 Take 1 Tablet(s) Oral QD 05/05/20 022 Inactive hydralazine 50 mg tablet RxNorm: 166366 Take 1 Tablet(s) Oral QID 05/05/20 Inactive aspirin 81 mg tablet,delayed release RxNorm: 834841 Take 1 Tablet(s) Oral QD 03/31/20 Inactive Zetia 10 mg tablet RxNorm: 693186 Take 1 Tablet(s) Oral QD 03/31/20 Inactive Vitamin D2 1,250 mcg (50,000 unit) capsule RxNorm: 6333152 Take 1 Capsule(s) Oral QW once a week x 12 weeks 03/31/20 Inactive Vitamin D2 1,250 mcg (50,000 unit) capsule RxNorm: 5253749 Take 1 Capsule(s) Oral QW once a week 03/31/20 Inactive Zetia 10 mg tablet RxNorm: 634513 Take 1 Tablet(s) Oral QD 03/31/20 021 Inactive hydralazine 25 mg tablet RxNorm: 963029 Take 1 Tablet(s) Oral QID 03/31/20 021 Inactive hydralazine 25 mg tablet RxNorm: 799055 Take 1 Tablet(s) Oral QID 03/31/20 021 Inactive hydralazine 10 mg tablet RxNorm: 495898 Take 1 Tablet(s) Oral QID 03/03/20 021 Inactive cephalexin 500 mg tablet RxNorm: 403658 Take 1 Tablet(s) Oral QID 02/27/20 021 Inactive cephalexin 500 mg tablet RxNorm: 488240 Take 1 Tablet(s) Oral QID 02/27/20 021 Inactive lisinopril 40 mg tablet RxNorm: 394201 Take 1 Tablet(s) Oral QD 02/11/20 023 Inactive Eliquis 5 mg tablet RxNorm: 1416628 Take 1 Tablet(s) Oral BID 01/05/20 022 Inactive Eliquis 5 mg tablet RxNorm: 6155355 Take 2 Tablet(s) Oral QD 01/01/20 21 021 Inactive Lyrica 50 mg capsule RxNorm: 172626 Take 1 Capsule(s) Oral QAM every morning 12/24/19 021 Inactive Lyrica 100 mg capsule RxNorm: 121326 Take 1 Capsule(s) Oral QHS every night at bedtime 12/24/19 021 Inactive clotrimazole 1 % topical cream RxNorm: 104888 Apply to right foot and toes Topical BID 12/04/19 21 023 Inactive metoprolol succinate ER 200 mg tablet,extended release 24 hr RxNorm: 835668 Take 1 Tablet(s) Oral QD 12/04/19 21 023 Inactive ciprofloxacin 500 mg tablet RxNorm: 815490 Take 1 Tablet(s) Oral QD 11/30/19 21 021 Inactive DX ofloxacin otic drops Accu-Chek Guide test strips RxNorm: USE 1 TO CHECK GLUCOSE 4 TIMES DAILY AND NEEDED 11/15/19 21 023 Inactive Blood Glucose Test strips RxNorm: Use 1 Test Strip QID at PRN 11/05/19 21 023 Inactive E11.42 lisinopril 30 mg tablet RxNorm: 255534 Take 1 Tablet(s) Oral QD 10/30/19 021 Inactive lisinopril 20 mg tablet RxNorm: 345432 Take 1 Tablet(s) Oral QD 10/23/19 021 Inactive lisinopril 20 mg tablet RxNorm: 141669 Take 1 Tablet(s) Oral QD 10/23/19 21 021 Inactive lisinopril 10 mg tablet RxNorm: 542618 Take 1 Tablet(s) Oral QD 10/02/19 021 Inactive icosapent ethyl 1 gram capsule RxNorm: 8861370 Take 2 Capsule(s) (2 gm) Oral BID with meals 09/12/19 022 Inactive Okay to dispense one 2gm tab if you have that available. icosapent ethyl 1 gram capsule RxNorm: 2858558 Take 2 Capsule(s) Oral BID 09/12/19 021 Inactive Okay to dispense one 2gm tab if you have that available. amlodipine 10 mg tablet RxNorm: 677154 Take 1 Tablet(s) Oral QD 09/04/19 022 Inactive aspirin 81 mg tablet,delayed release RxNorm: 730137 Take 1 Tablet(s) Oral QD 09/04/19 021 Inactive Levemir FlexTouch U-100 Insulin 100 unit/mL (3 mL) subcutaneous pen RxNorm: 647317 Inject 150 Unit(s) Subcutaneous BID 09/04/19 21 022 Inactive venlafaxine ER 150 mg tablet,extended release 24 hr RxNorm: 232238 Take 1 Tablet(s) Oral QD 09/04/19 21 021 Inactive clotrimazole-betame thasone 1 %-0.05 % topical cream RxNorm: 672260 Apply to rash on red area on left abdomen/chest Topical BID 03/26 Inactive amlodipine 5 mg tablet RxNorm: 090019 Take 1 Tablet(s) Oral QD 07/31/19 Inactive cephalexin 500 mg tablet RxNorm: 183819 Take 1 Tablet(s) Oral BID BID - Twice Daily 07/31/19 021 Inactive Start 08/01/20 pantoprazole 40 mg tablet,delayed release RxNorm: 953329 Take 1 Tablet(s) Oral QAM every morning 07/08/19 022 Inactive senna 8.6 mg tablet RxNorm: 307127 Take 1 Tablet(s) Oral QD 07/08/19 022 Inactive pravastatin 80 mg tablet RxNorm: 890237 Take 1 Tablet(s) Oral QHS every night at bedtime 07/08/19 022 Inactive clotrimazole 1 % topical cream RxNorm: 752429 Apply to bilateral groin areas Topical BID 07/08/19 Inactive carbamazepine 200 mg tablet RxNorm: 258432 Take 1 Tablet(s) Oral BID 07/08/19 022 Inactive torsemide 20 mg tablet RxNorm: 904565 Take 1 Tablet(s) Oral QD 07/08/19 023 Inactive clopidogrel 75 mg tablet RxNorm: 705916 Take 1 Tablet(s) Oral QD 07/08/19 021 Inactive Blood Glucose Test strips RxNorm: Use 1 Test Strip QID at PRN 07/08/19 Inactive E11.42 Novolog Flexpen U-100 Insulin aspart 100 unit/mL (3 mL) subcutaneous RxNorm: 5846408 Administer per sliding scale Milliliter(s) Subcutaneous TID 151-200: 10 u; 201-250: 20 u; 251-300: 30 u; 301-350: 40 u; 351-400: 50 u. 07/08/19 022 Inactive lisinopril 5 mg tablet RxNorm: 309220 Take 1 Tablet(s) Oral QD 07/08/19 021 Inactive Novolog Flexpen U-100 Insulin aspart 100 unit/mL (3 mL) subcutaneous RxNorm: 7837020 Inject 85 Unit(s) Subcutaneous TID 07/08/19 21 022 Inactive metoprolol succinate ER 200 mg tablet,extended release 24 hr RxNorm: 367834 Take 1 Tablet(s) Oral QD 07/08/19 021 Inactive Vitamin D3 25 mcg (1,000 unit) tablet RxNorm: 164275 Take 1 Tablet(s) Oral QD 07/08/19 021 Inactive isosorbide dinitrate 30 mg tablet RxNorm: 167364 Take 1 Tablet(s) Oral QD 07/08/19 021 Inactive Levemir FlexTouch U-100 Insulin 100 unit/mL (3 mL) subcutaneous pen RxNorm: 235695 Inject 140 Unit(s) Subcutaneous BID 07/08/19 Inactive venlafaxine 75 mg tablet RxNorm: 136902 Take 1 Tablet(s) Oral QD 07/08/19 Inactive acetaminophen 500 mg tablet RxNorm: 918107 Take 1 Tablet(s) Oral TID as needed for headache 06/18/19 021 Inactive acetaminophen 500 mg tablet RxNorm: 987482 Take 1 Tablet(s) Oral TID as needed for headache 06/18/19 Inactive Lyrica 100 mg capsule RxNorm: 639055 Take 1 Capsule(s) Oral QHS every night at bedtime 06/11/19 021 Inactive Lyrica 50 mg capsule RxNorm: 879314 Take 1 Capsule(s) Oral QAM every morning 06/10/19 21 021 Inactive hydrocortisone 2.5 % topical cream RxNorm: 514701 Apply to bilateral groin creases Topical BID 05/15/20 20 021 Inactive clotrimazole 1 % topical cream RxNorm: 997153 Apply to bilateral groin areas Topical BID 05/15/20 20 021 Inactive Lyrica 50 mg capsule RxNorm: 071140 Take 1 Capsule(s) Oral QAM every morning 05/14/20 20 020 Inactive Lyrica 100 mg capsule RxNorm: 960578 Take 1 Capsule(s) Oral QHS every night [...] Inactive Nystop 100,000 unit/gram topical powder RxNorm: 437695 Apply to abd folds, under breasts and L side of groin Topical BID x 14 days, then BID PRN 04/08/20 20 021 Inactive dx: yeast dermatitis Lyrica 100 mg capsule RxNorm: 704031 Take 1 Capsule(s) Oral QHS every night at bedtime 03/13/20 20 Inactive Lyrica 50 mg capsule RxNorm: 434248 Take 1 Capsule(s) Oral QAM every morning 03/13/20 20 Inactive ketoconazole 2 % shampoo RxNorm: 068896 Apply Topical two times a week with showers 03/11/20 20 Inactive cholecalciferol (vitamin D3) 50 mcg (2,000 unit) tablet RxNorm: 813209 Take 1 Tablet(s) Oral QD 03/11/20 20 Inactive Zetia 10 mg tablet RxNorm: 559171 Take 1 Tablet(s) Oral QD 03/07/20 20 021 Inactive Zetia 10 mg tablet RxNorm: 149928 Take 1 Tablet(s) Oral QD 03/07/20 20 Inactive Lyrica 50 mg capsule RxNorm: 891057 Take 1 Capsule(s) Oral QAM every morning 02/15/20 20 Inactive Lyrica 100 mg capsule RxNorm: 840166 Take 1 Capsule(s) Oral QHS every night at bedtime 02/15/20 20 Inactive Lyrica 100 mg capsule RxNorm: 556248 Take 1 Capsule(s) Oral QHS every night at bedtime 02/15/20 20 Inactive Lyrica 50 mg capsule RxNorm: 550124 Take 1 Capsule(s) Oral QAM every morning 02/15/20 20 Inactive venlafaxine ER 75 mg capsule,extended release 24 hr RxNorm: 072250 Take 3 Capsule(s) Oral QD 06/12/19 22 Active polyethylene glycol 3350 17 gram/dose oral powder RxNorm: 484419 Take 17=1 capful Gram(s) Oral BID as needed mix with 4-8oz of liquid 06/12/19 22 Active Levemir FlexTouch U-100 Insulin 100 unit/mL (3 mL) subcutaneous pen RxNorm: 245817 Inject 80 Unit(s) Subcutaneous BID 07/14/19 23 023 Inactive loperamide 2 mg capsule RxNorm: 489016 Take 1 Capsule(s) Oral QID as needed 06/12/19 22 Active Novolog Flexpen U-100 Insulin aspart 100 unit/mL (3 mL) subcutaneous RxNorm: 7464783 Insert 30 Unit(s) Subcutaneous TID with meals [...] Item Item Code Result Date Service Location Prostat Specific Antigen (PSA), Total PSA Prostate Specific Antigen (PSA), Total 82617-8 0.20 ng/mL 03/17/20 Unknown Complete Metabolic Panel (CMP) CMP A/G Ratio 1.3 ppm 03/17/20 Unknown Complete Metabolic Panel (CMP) CMP Albumin 1751-7 3.6 g/dL 03/17/20 Unknown Complete Metabolic Panel (CMP) CMP Alkaline Phosphatase 97 U/L 03/17/20 Unknown Complete Metabolic Panel (CMP) CMP ALT (SGPT) 29 U/L 03/17/20 Unknown Complete Metabolic Panel (CMP) CMP AST (SGOT) 25.1 U/L 03/17/20 Unknown Complete Metabolic Panel (CMP) CMP BILIRUBIN, TOTAL 1975-2 < 0.15 mg/dL 03/17/20 Unknown Complete Metabolic Panel (CMP) CMP Blood Urea Nitrogen (BUN) 36 mg/dL 03/17/20 Unknown Complete Metabolic Panel (CMP) CMP BUN/CREATININE RATIO 29.26 ratio 03/17/20 Unknown Complete Metabolic Panel (CMP) CMP Calcium (Ca) 10334-9 8.4 mg/dL 03/17/20 Unknown Complete Metabolic Panel (CMP) CMP Carbon Dioxide (ECO2) 28 mmol/L 03/17/20 Unknown Complete Metabolic Panel (CMP) CMP Chloride (Cl) 2075-0 106 mmol/L 03/17/20 Unknown Complete Metabolic Panel (CMP) CMP Creatinine 2160-0 1.22 mg/dL 03/17/20 Unknown Complete Metabolic Panel (CMP) CMP eGFR 64.00 mL/min/1.7 3m2 03/17/20 Unknown Complete Metabolic Panel (CMP) CMP eGFR 52172-3 77.00 mL/min/1.7 3m2 03/17/20 Unknown Complete Metabolic Panel (CMP) CMP Globulin, Total 2.7 ppm 03/17/20 Unknown Complete Metabolic Panel (CMP) CMP Glucose 249 mg/dL 03/17/20 Unknown Complete Metabolic Panel (CMP) CMP Potassium (K) 2823-3 4.3 mmol/L 03/17/20 Unknown Complete Metabolic Panel (CMP) CMP PROTEIN, TOTAL 2885-2 6.3 g/dL 11/01/20 22 Unknown Complete Metabolic Panel (CMP) CMP Sodium (Na) 2951-2 141 mmol/L 03/17/20 22 Unknown Vitamin B12 VITAB12 Vitamin B12 2132-9 313 pg/mL 22 Unknown Vitamin D, 25-Hydroxy VITAD25 Vitamin D, 25-Hydroxy 80501-0 33 ng/mL 03/17/20 22 Unknown TSH Reflex to FT4 [id number] TSH 40215-7 1.88 uIU/mL 03/17/20 22 Unknown CBC without Differential / Platelets CBCNODIFF Hematocrit 4544-3 33.2 % 03/17/20 22 Unknown CBC without Differential / Platelets CBCNODIFF Hemoglobin 718-7 11.0 g/dL 03/17/20 22 Unknown CBC without Differential / Platelets CBCNODIFF RBC 3.66 x10^6/UL 03/17/20 22 Unknown CBC without Differential / Platelets CBCNODIFF MCH 30.1 pg 03/17/20 22 Unknown CBC without Differential / Platelets CBCNODIFF MCHC 33.1 g/dL 03/17/20 22 Unknown CBC without Differential / Platelets CBCNODIFF MCV 787-2 90.7 % 03/17/20 22 Unknown CBC without Differential / Platelets CBCNODIFF Platelets 777-3 168 x10E3/uL 03/17/20 22 Unknown CBC without Differential / Platelets CBCNODIFF RDW 13.9 %binding 03/17/20 22 Unknown CBC without Differential / Platelets CBCNODIFF WBC 6690-2 4.93 x10E3/uL 03/17/20 22 Unknown Hemoglobin A1c HEMOGLOBA Hemoglobin A1c 41888-2 9.4 %A1c 03/17/20 22 Unknown PDFReport PDFReport PDFReport 03/16/20 22 Unknown Procedures Procedure Codes Date DEBRIDE NAIL 6 OR MORE CPT-4: 14272 2 Vital Signs Date Vital 02/10/2022 Blood Pressure 1: 152/51 Code: 8480-6 BMI: NaN Code: 16581-1 Heart Rate 1: 79 bpm Code: 8867-4 Height: 5'5 Code: 8302-2 Respiratory Rate: 18 bpm Temperature: 36.3 (C) / 97.4 (F) Weight: 407 lbs Code: 3141-9 Reason For Visit No Reason For Visit data Encounters Encounter Performer Location Location Address Codes Date (49990) DOMICIL VISIT EST PAT Diagnosis: BMI 60.0-69.9, adult[ICD10: Z68.44] Diagnosis: Hypercoagulable state[ICD10: D68.59] Diagnosis: Hx of deep venous thrombosis[ICD10: Z86.718] Diagnosis: PVD (peripheral vascular disease)[ICD10: I73.9] Diagnosis: Hypertensive heart disease without heart failure[ICD10: I11.9] Diagnosis: Recurrent major depressive disorder, in partial remission[ICD10: F33.41] Diagnosis: Paraparesis of both lower limbs[ICD10: G82.20] Diagnosis: Onychogryposis[ICD10: L60.2] Tapan Shirley [facility] [address] [address] [place] [address] CPT-4: 20599 02/10/2022 Plan of Care Planned Activity Notes Codes Status Date Referral: [facility] WPtel: [address] , [address] [id number] [place] Referral Records Received 09/21/2022 Patient Education: Patient M edication Summary Completed 02/10/2022 Patient Education: Influenza Vaccine Completed 02/10/2022 Referral: [facility] WPtel: [address] [id number] [place] Referral Completed 05/28/2021 Referral: General Cardiology Referral Complet ed 01/03/2021 Referral: General Psychologist Referral Close d Instructions Comment Date Leonid is a?? Male being seen living at [facility]. Initial [facility] visit 01/2020. PMHx including DMII, CAD w/ 5 stents, Depression, Seizure Disorder and CKD stage 3. He moved into [facility] in 12/2019 but after a hospitalization 05/2021 he moved [facility] to have closer nursing attention.??Sister Jyotsna involved in his care cell# [phone]??Guardian: Don (tapan met in person 09/01/21), now has Lexii (same group as don)Lab Schedule: * 10/06/2022 Hx of deep venous thrombosis Monitor for dizziness, fatigue, weakness, increased heart rate or palpitations, chest pain and shortness of breath.?? 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 BMI 60.0-69.9, adult Reviewed previous attempts at weight loss which have not been successful in producing prolonged weight loss. Discussed risks associated with obesity and encouraged healthy food choices exercise as tolerated.? Hypercoagulable state ??Monitor for signs/ symptoms of thrombus formation. Peripheral Vascular Disease PVD stable with current medications and support interventions.?? Depression Consulted [facility] psych 11/2021, implemented recommendations. Is set to be seen by psych in the next couple of months. Doing well overall, no changes indicated.?? Onychogryposis (*8*) toenails debrided today, (*4*) on left foot, (*4*) on right foot. Medical grade nail clippers and electric dremel used to significantly reduce length & thickness. Anti-fungal treatment options reviewed, discussion deferred as treatment not appropriate or beneficial to patient. Patient tolerated procedure well. . 02/10/2022
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
--- OUTSIDE RECORDS SUMMARY | 2022-11-09 23:29 | XMS_ITS | CCD ---
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 Name Role Phone Tapan Shirley PA-C Primary Care Provider Unavailabl e Tapan Shirley PA-C Chronic Care Management Unavaila ble Summary Purpose DataExchange Insurance Providers Payer name Policy type / Coverage type Covered republican ID Effective Begin Date Effective End Date [place] [id number] [place] Unknown [place] [id number] Unknown Unknown Family history Sister Brittany Suggs [...] Unknown Long-Term 09/03/[address]: 7664341 Non-Smoker / No History of Smoking 09/02/[address]: 687839482 No Alcohol Consum ption 09/02/2020 Allergies, Adverse Reactions, Alerts Substance Reaction Codes Entered Date Inactivated Date Status LISINOPRIL RxNorm: 40859 02/12/2020 No Inactive Da te Active Metformin [...] immunization ICD-10: Z23 ICD-9: V03.89 02/10/2022 Resolved care home (current) use of insulin ICD-10: Z79.4 02/10 Resolved Muscular pain ICD-10: M79.10 ICD-9: 729.1 02/10/2022 Resolved Pain of right heel ICD-10: M79.671 ICD-9: 729.5 02/10/2022 Resolved Coronary artery disease invo lving [place] [...] Fill Instructions diphenhydramine 50 mg tablet RxNorm: 7422016 Take 1 Tablet(s) Oral Q6H every 6 hours as needed 04/06/20 22 022 Inactive diphenhydramine 50 mg tablet RxNorm: 6176985 1 Tablet(s) Oral Q6H every 6 hours as needed 04/06/20 22 022 Inactive Abilify 15 mg tablet RxNorm: 495587 1/2 Tablet(s) Oral QD 03/10/20 22 023 Inactive Shingrix (PF) 50 mcg/0.5 mL intramuscular suspension, kit RxNorm: 5791600 Administer 1/2 Milliliter(s) Intramuscular QD one time shingrix step 2 ( step 1 given 11/04/21) WITH needle - Nursing please administer upon arrival and once administered 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, brick baker, 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, and lot# so we can update [facility]IC 02/18/20 22 022 Inactive dispense with needle Shingrix (PF) 50 mcg/0.5 mL intramuscular suspension, kit RxNorm: 5119057 Administer 1/2 Milliliter(s) Intramuscular QD one time shingrix step 2 ( step 1 given 11/04/21) WITH needle - Nursing please administer upon arrival and once administered 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, brick baker, 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, and lot# so we can update [facility]IC 02/18/20 22 Inactive dispense with needle acetaminophen 500 mg tablet RxNorm: 043192 Take 1 Tablet(s) Oral TID 01/08/20 22 023 Active d/c PRN order Lyrica 150 mg capsule RxNorm: 209397 Take 1 Capsule(s) Oral QHS every night at bedtime 01/08/20 22 023 Inactive d/c 100mg dose polyethylene glycol 3350 17 gram/dose oral powder RxNorm: 890781 Take 17=1 capful Gram(s) Oral QD mix with 4-8oz of liquid 01/08/20 22 023 Active take this in addition to BID prn order Lyrica 100 mg capsule RxNorm: 027726 Take 1 Capsule(s) Oral QAM every morning 01/08/20 22 022 Inactive d/c 50mg dose Abilify 5 mg tablet RxNorm: 706275 Take 1 Tablet(s) Oral QD take 1 tab po QD #30 refill 5 dx: MDD 12/12/19 22 022 Inactive Abilify 5 mg tablet RxNorm: 301874 Take 1 Tablet(s) Oral QD take 1 tab po QD #30 refill 5 dx: MDD 12/12/19 22 022 Inactive chlorthalidone 25 mg tablet RxNorm: 555019 Take 1 Tablet(s) Oral QAM every morning 12/10/19 22 023 Active Novolog Flexpen U-100 Insulin aspart 100 unit/mL (3 mL) subcutaneous RxNorm: 2481900 Inject 42 Unit(s) Subcutaneous TID in addition to sliding scale 12/10/19 22 022 Inactive d/c 36u pregabalin 50 mg capsule RxNorm: 929907 Take 1 Capsule(s) Oral QAM every morning 11/12/19 22 022 Inactive tetanus-diphtheria toxoids-Td 2 Lf unit-2 Lf unit/0.5 mL IM suspension RxNorm: 139 Take 0.5 Miscellaneous Intramuscular 11/12/19 22 022 Inactive need tdap - nursing to administer upon arrival pregabalin 50 mg capsule RxNorm: 517559 Take 1 Capsule(s) Oral QAM every morning 10/16/19 Inactive pregabalin 50 mg capsule RxNorm: 995937 Take 1 Capsule(s) Oral QAM every morning 10/16/19 22 022 Inactive pregabalin 50 mg capsule RxNorm: 148709 1 Capsule(s) Oral QAM every morning 10/15/19 22 022 Inactive Shingrix (PF) 50 mcg/0.5 mL intramuscular suspension, kit RxNorm: 4980649 Administer 1/2 Milliliter(s) Intramuscular one time Nursing please administer upon arrival and once administered 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, brick baker, 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 10/09/19 22 022 Inactive shingrix step 1 Shingrix (PF) 50 mcg/0.5 mL intramuscular suspension, kit RxNorm: 0945281 Administer 1/2 Milliliter(s) Intramuscular one time Nursing please administer upon arrival and once administered 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, brick baker, 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 10/09/19 22 022 Inactive shingrix step 1 Novolog Flexpen U-100 Insulin aspart 100 unit/mL (3 mL) subcutaneous RxNorm: 5610978 Inject 10 Unit(s) Subcutaneous QHS every night at bedtime with nighttime snack 10/08/19 022 Inactive cholecalciferol (vitamin D3) 1,250 mcg (50,000 unit) capsule RxNorm: 659108 Take 1 Capsule(s) Oral QW once a [...] 50 mcg/0.5 mL intramuscular suspension, kit RxNorm: 2985839 ADMINISTER 2-DOSE SERIES PER CDC GUIDELINES 10/08/19 22 Active Shingrix (PF) 50 mcg/0.5 mL intramuscular suspension, kit RxNorm: 2497817 ADMINISTER 2-DOSE SERIES PER CDC GUIDELINES 10/08/19 22 Inactive Novolog Flexpen U-100 Insulin aspart 100 unit/mL (3 mL) subcutaneous RxNorm: 9432447 Inject 36 Unit(s) Subcutaneous TID in addition to sliding scale 10/08/19 Inactive Novofine Autocover 30 gauge x 1/3 needle RxNorm: Use 1 Miscellaneous UD as directed Use 1 needle as directed to administer insulin 5 times a day Dx:E11.42. 10/03/19 Inactive ok to substitute with any covered alternative pen needle benzoyl peroxide 10 % topical cleanser RxNorm: 160238 Apply 1 Application Topical QD apply to face, wash rinse and dry once daily (may change to QOD if drying) 08/19/19 Inactive (%covered by insurance) #60ml refill 11 dx: acne benzoyl peroxide 10 % topical cleanser RxNorm: 338847 Apply 1 Application Topical QD apply to face, wash rinse and dry once daily (may change to QOD if drying) 08/19/19 22 022 Inactive (%covered by insurance) #60ml refill 11 dx: acne benzoyl peroxide 10 % topical cleanser RxNorm: 780673 Apply 1 Application Topical QD apply to face, wash rinse and dry once daily (may change to QOD if drying) 08/19/19 22 022 Inactive (%covered by insurance) #60ml refill 11 dx: acne Lyrica 50 mg capsule RxNorm: 349518 Take 1 Capsule(s) Oral QAM every morning Take 1 capsule by mouth once daily 08/19/19 22 022 Inactive benzoyl peroxide 10 % topical cleanser RxNorm: 698401 Apply 1 Application Topical QD apply to face, wash rinse and dry once daily (may change to QOD if drying) 08/19/19 22 Inactive (%covered by insurance) #60ml refill 11 dx: acne Lyrica 100 mg capsule RxNorm: 082391 Take 1 Capsule(s) Oral QHS every night at bedtime Take 1 capsule by mouth once daily at bedtime 08/19/19 22 022 Inactive Lyrica 100 mg capsule RxNorm: 344920 Take 1 Capsule(s) Oral QHS every night at bedtime Take 1 capsule by mouth once daily at bedtime 08/16/19 22 022 Inactive Lyrica 50 mg capsule RxNorm: 220466 Take 1 Capsule(s) Oral QAM every morning Take 1 capsule by mouth once daily 08/16/19 22 022 Inactive Levemir FlexTouch U-100 Insulin 100 unit/mL (3 mL) subcutaneous pen RxNorm: 014429 Inject 86 Unit(s) Subcutaneous BID 08/05/19 22 022 Inactive d/c 83units BID Lyrica 100 mg capsule RxNorm: 871384 Take 1 Capsule(s) Oral QHS every night at bedtime Take 1 capsule by mouth once daily at bedtime 07/14/19 22 022 Inactive Lyrica 50 mg capsule RxNorm: 932283 Take 1 Capsule(s) Oral QAM every morning Take 1 capsule by mouth once daily 07/14/19 22 022 Inactive Levemir FlexTouch U-100 Insulin 100 unit/mL (3 mL) subcutaneous pen RxNorm: 085730 Inject 83 Unit(s) Subcutaneous BID 07/08/19 22 [...] test strip hydralazine 50 mg tablet RxNorm: 883223 Take 1 Tablet(s) Oral QID 05/05/20 21 022 Inactive isosorbide mononitrate ER 30 mg tablet,extended release 24 hr RxNorm: 298535 Take 1 Tablet(s) Oral QD 05/05/20 No Stop Date Active venlafaxine ER 225 mg tablet,extended release 24 hr RxNorm: 439788 Take 1 Tablet(s) Oral QD 05/05/20 21 021 Inactive venlafaxine ER 225 mg tablet,extended release 24 hr RxNorm: 612675 Take 1 Tablet(s) Oral QD 05/05/20 21 022 Inactive hydralazine 50 mg tablet RxNorm: 231529 Take 1 Tablet(s) Oral QID 05/05/20 21 021 Inactive aspirin 81 mg tablet,delayed release RxNorm: 159502 Take 1 Tablet(s) Oral QD 03/31/20 21 022 Inactive Zetia 10 mg tablet RxNorm: 368554 Take 1 Tablet(s) Oral QD 03/31/20 022 Inactive Vitamin D2 1,250 mcg (50,000 unit) capsule RxNorm: 8261315 Take 1 Capsule(s) Oral QW once a week x 12 weeks 03/31/20 022 Inactive Vitamin D2 1,250 mcg (50,000 unit) capsule RxNorm: 8799944 Take 1 Capsule(s) Oral QW once a week 03/31/20 Inactive Zetia 10 mg tablet RxNorm: 308238 Take 1 Tablet(s) Oral QD 03/31/20 Inactive hydralazine 25 mg tablet RxNorm: 508615 Take 1 Tablet(s) Oral QID 03/31/20 Inactive hydralazine 25 mg tablet RxNorm: 041537 Take 1 Tablet(s) Oral QID 03/31/20 021 Inactive hydralazine 10 mg tablet RxNorm: 052846 Take 1 Tablet(s) Oral QID 03/03/20 021 Inactive cephalexin 500 mg tablet RxNorm: 740225 Take 1 Tablet(s) Oral QID 02/27/20 021 Inactive cephalexin 500 mg tablet RxNorm: 558929 Take 1 Tablet(s) Oral QID 02/27/20 021 Inactive lisinopril 40 mg tablet RxNorm: 822692 Take 1 Tablet(s) Oral QD 02/11/20 023 Inactive Eliquis 5 mg tablet RxNorm: 4778624 Take 1 Tablet(s) Oral BID 01/05/20 022 Inactive Eliquis 5 mg tablet RxNorm: 4167981 Take 2 Tablet(s) Oral QD 01/01/20 021 Inactive Lyrica 50 mg capsule RxNorm: 203342 Take 1 Capsule(s) Oral QAM every morning 12/24/19 021 Inactive Lyrica 100 mg capsule RxNorm: 930097 Take 1 Capsule(s) Oral QHS every night at bedtime 12/24/19 021 Inactive clotrimazole 1 % topical cream RxNorm: 796806 Apply to right foot and toes Topical BID 12/04/19 21 023 Inactive metoprolol succinate ER 200 mg tablet,extended release 24 hr RxNorm: 999146 Take 1 Tablet(s) Oral QD 12/04/19 21 023 Inactive ciprofloxacin 500 mg tablet RxNorm: 780566 Take 1 Tablet(s) Oral QD 11/30/19 21 021 Inactive DX ofloxacin otic drops Accu-Chek Guide test strips RxNorm: USE 1 TO CHECK GLUCOSE 4 TIMES DAILY AND NEEDED 11/15/19 21 023 Inactive Blood Glucose Test strips RxNorm: Use 1 Test Strip QID at PRN 11/05/19 21 023 Inactive E11.42 lisinopril 30 mg tablet RxNorm: 555293 Take 1 Tablet(s) Oral QD 10/30/19 021 Inactive lisinopril 20 mg tablet RxNorm: 334197 Take 1 Tablet(s) Oral QD 10/23/19 21 021 Inactive lisinopril 20 mg tablet RxNorm: 590333 Take 1 Tablet(s) Oral QD 10/23/19 21 021 Inactive lisinopril 10 mg tablet RxNorm: 069821 Take 1 Tablet(s) Oral QD 10/02/19 21 021 Inactive icosapent ethyl 1 gram capsule RxNorm: 6454584 Take 2 Capsule(s) (2 gm) Oral BID with meals 09/12/19 022 Inactive Okay to dispense one 2gm tab if you have that available. icosapent ethyl 1 gram capsule RxNorm: 3437200 Take 2 Capsule(s) Oral BID 09/12/19 21 021 Inactive Okay to dispense one 2gm tab if you have that available. amlodipine 10 mg tablet RxNorm: 957342 Take 1 Tablet(s) Oral QD 09/04/19 21 022 Inactive aspirin 81 mg tablet,delayed release RxNorm: 448220 Take 1 Tablet(s) Oral QD 09/04/19 21 021 Inactive Levemir FlexTouch U-100 Insulin 100 unit/mL (3 mL) subcutaneous pen RxNorm: 962732 Inject 150 Unit(s) Subcutaneous BID 09/04/19 21 022 Inactive venlafaxine ER 150 mg tablet,extended release 24 hr RxNorm: 539517 Take 1 Tablet(s) Oral QD 09/04/19 021 Inactive clotrimazole-betame thasone 1 %-0.05 % topical cream RxNorm: 271829 Apply to rash on red area on left abdomen/chest Topical BID 08/10/19 21 Inactive amlodipine 5 mg tablet RxNorm: 838008 Take 1 Tablet(s) Oral QD 07/31/19 Inactive cephalexin 500 mg tablet RxNorm: 698561 Take 1 Tablet(s) Oral BID BID - Twice Daily 07/31/19 021 Inactive Start 08/01/20 pantoprazole 40 mg tablet,delayed release RxNorm: 861524 Take 1 Tablet(s) Oral QAM every morning 07/08/19 022 Inactive senna 8.6 mg tablet RxNorm: 042002 Take 1 Tablet(s) Oral QD 07/08/19 022 Inactive pravastatin 80 mg tablet RxNorm: 758286 Take 1 Tablet(s) Oral QHS every night at bedtime 07/08/19 022 Inactive carbamazepine 200 mg tablet RxNorm: 415009 Take 1 Tablet(s) Oral BID 07/08/19 022 Inactive torsemide 20 mg tablet RxNorm: 946284 Take 1 Tablet(s) Oral QD 07/08/19 21 023 Inactive clopidogrel 75 mg tablet RxNorm: 648508 Take 1 Tablet(s) Oral QD 07/08/19 021 Inactive Blood Glucose Test strips RxNorm: Use 1 Test Strip QID at PRN 07/08/19 21 021 Inactive E11.42 Novolog Flexpen U-100 Insulin aspart 100 unit/mL (3 mL) subcutaneous RxNorm: 4526209 Administer per sliding scale Milliliter(s) Subcutaneous TID 151-200: 10 u; 201-250: 20 u; 251-300: 30 u; 301-350: 40 u; 351-400: 50 u. 07/08/19 21 022 Inactive lisinopril 5 mg tablet RxNorm: 376646 Take 1 Tablet(s) Oral QD 07/08/19 Inactive Novolog Flexpen U-100 Insulin aspart 100 unit/mL (3 mL) subcutaneous RxNorm: 1432462 Inject 85 Unit(s) Subcutaneous TID 07/08/19 21 Inactive clotrimazole 1 % topical cream RxNorm: 999642 Apply to bilateral groin areas Topical BID 07/08/19 21 Inactive metoprolol succinate ER 200 mg tablet,extended release 24 hr RxNorm: 904807 Take 1 Tablet(s) Oral QD 07/08/19 Inactive Vitamin D3 25 mcg (1,000 unit) tablet RxNorm: 801052 Take 1 Tablet(s) Oral QD 07/08/19 021 Inactive isosorbide dinitrate 30 mg tablet RxNorm: 297696 Take 1 Tablet(s) Oral QD 07/08/19 021 Inactive Levemir FlexTouch U-100 Insulin 100 unit/mL (3 mL) subcutaneous pen RxNorm: 263209 Inject 140 Unit(s) Subcutaneous BID 07/08/19 Inactive venlafaxine 75 mg tablet RxNorm: 559252 Take 1 Tablet(s) Oral QD 07/08/19 Inactive acetaminophen 500 mg tablet RxNorm: 879672 Take 1 Tablet(s) Oral TID as needed for headache 06/18/19 Inactive acetaminophen 500 mg tablet RxNorm: 143928 Take 1 Tablet(s) Oral TID as needed for headache 06/18/19 Inactive Lyrica 100 mg capsule RxNorm: 933176 Take 1 Capsule(s) Oral QHS every night at bedtime 06/11/19 021 Inactive Lyrica 50 mg capsule RxNorm: 881994 Take 1 Capsule(s) Oral QAM every morning 06/10/19 Inactive hydrocortisone 2.5 % topical cream RxNorm: 953086 Apply to bilateral groin creases Topical BID 05/15/20 20 Inactive clotrimazole 1 % topical cream RxNorm: 058604 Apply to bilateral groin areas Topical BID 05/15/20 20 Inactive Lyrica 50 mg capsule RxNorm: 683388 Take 1 Capsule(s) Oral QAM every morning 05/14/20 20 Inactive Lyrica 100 mg capsule RxNorm: 364437 Take 1 Capsule(s) Oral QHS every night [...] Inactive Nystop 100,000 unit/gram topical powder RxNorm: 186413 Apply to abd folds, under breasts and L side of groin Topical BID x 14 days, then BID PRN 04/08/20 20 021 Inactive dx: yeast dermatitis Lyrica 100 mg capsule RxNorm: 981123 Take 1 Capsule(s) Oral QHS every night at bedtime 03/13/20 20 Inactive Lyrica 50 mg capsule RxNorm: 003806 Take 1 Capsule(s) Oral QAM every morning 03/13/20 20 Inactive ketoconazole 2 % shampoo RxNorm: 409190 Apply Topical two times a week with showers 03/11/20 20 Inactive cholecalciferol (vitamin D3) 50 mcg (2,000 unit) tablet RxNorm: 872033 Take 1 Tablet(s) Oral QD 03/11/20 Inactive Zetia 10 mg tablet RxNorm: 179822 Take 1 Tablet(s) Oral QD 03/07/20 021 Inactive Zetia 10 mg tablet RxNorm: 731986 Take 1 Tablet(s) Oral QD 03/07/20 Inactive Lyrica 50 mg capsule RxNorm: 941226 Take 1 Capsule(s) Oral QAM every morning 02/15/20 Inactive Lyrica 100 mg capsule RxNorm: 072396 Take 1 Capsule(s) Oral QHS every night at bedtime 02/15/20 Inactive Lyrica 100 mg capsule RxNorm: 467943 Take 1 Capsule(s) Oral QHS every night at bedtime 02/15/20 Inactive Lyrica 50 mg capsule RxNorm: 217209 Take 1 Capsule(s) Oral QAM every morning 02/15/20 Inactive venlafaxine ER 75 mg capsule,extended release 24 hr RxNorm: 968086 Take 3 Capsule(s) Oral QD 06/12/19 Active polyethylene glycol 3350 17 gram/dose oral powder RxNorm: 071071 Take 17=1 capful Gram(s) Oral BID as needed mix with 4-8oz of liquid 06/12/19 Active Levemir FlexTouch U-100 Insulin 100 unit/mL (3 mL) subcutaneous pen RxNorm: 103692 Inject 80 Unit(s) Subcutaneous BID 07/14/19 23 023 Inactive loperamide 2 mg capsule RxNorm: 166974 Take 1 Capsule(s) Oral QID as needed 06/12/19 Active Novolog Flexpen U-100 Insulin aspart 100 unit/mL (3 mL) subcutaneous RxNorm: 6605464 Insert 30 Unit(s) Subcutaneous TID with meals [...] Codes Status Date Referral: [facility] WPtel: [address] , [address] [id number] [place] Referral Records Received 09/21/2022 Referral: [facility] WPtel: [address] [id number] [place] Referral Completed 05/28/2021 Referral: General Cardiology Referral Complet ed 01/03/2021 Referral: General Psychologist Referral Close d Instructions Comment Date Peter is a?? Male being seen living at [facility]. Initial BPS visit 01/2020. PMHx including DMII, CAD w/ 5 stents, Depression, Seizure Disorder and CKD stage 3. He moved into [facility] in 12/2019 but after a hospitalization 05/2021 he moved to the [facility] to have closer nursing attention.??Sister Jyotsna involved in his care cell# [phone]??Guardian: Don (tapan met in person 09/01/21), now has Lexii (same group as don)Lab Schedule: * 10/06/2022
--- OUTSIDE RECORDS SUMMARY | 2022-11-09 23:30 | XMS_ITS | CCD ---
Author Name Tapan Shirley PA-C Address [address] [place] [address] Phone Organization [facility] Phone Care Team Providers Care Floor Person Name Role Phone Tapan Shirley PA-C Primary Care Provider Unavailabl e Tapan Shirley PA-C Chronic Care Management Unavaila ble Summary Purpose DataExchange Insurance Providers Payer name Policy type / Coverage type Covered republican ID Effective Begin Date Effective End Date Medicare [place] Medicare Part B [id number] Unknown Unknown [place] Medicare Part B [id number] Unknown Unknown Family history Sister Brittany Suggs [...] Longterm 09/03/[address]: 0961862 Non-Smoker / No History of Smoking 09/02/[address]: 375280410 No Alcohol Consum ption 09/02/2020 Allergies, Adverse Reactions, Alerts Substance Reaction Codes Entered Date Inactivated Date Status LISINOPRIL RxNorm: 38927 02/12/2020 No Inactive Da te Active Metformin HCl Unknown 02/12/2020 No Inactive Cristiano e Active Problems Condition Codes Effective Dates Condition St atus Coronary artery disease invo lving ely shoshone [...] insulin ICD-10: E11.42 ICD-9: 250.60 04/07/2022 Active Vitamin D deficiency ICD-10: E55.9 ICD-9: 268.9 04/07/2022 Active Major depression, recurrent ICD-10: F33. 9 [...] immunization ICD-10: Z23 ICD-9: V03.89 02/10/2022 Resolved buttermaker continuous churn (current) use of insulin ICD-10: Z79.4 02/10 [...] sulfate HFA 90 mcg/actuation aerosol inhaler RxNorm: 6747470 Take 2 Puff(s) Inhalation Q4H every four hours as needed as needed for SOB, cough, or wheezing 04/07/20 030 Active diphenhydramine 50 mg tablet RxNorm: 5154746 Take 1 Tablet(s) Oral Q6H every 6 hours as needed 04/06/20 22 022 Inactive diphenhydramine 50 mg tablet RxNorm: 8775063 1 Tablet(s) Oral Q6H every 6 hours as needed 04/06/20 22 022 Inactive Abilify 15 mg tablet RxNorm: 226594 1/2 Tablet(s) Oral QD 03/10/20 22 023 Inactive Shingrix (PF) 50 mcg/0.5 mL intramuscular suspension, kit RxNorm: 3552224 Administer 1/2 Milliliter(s) Intramuscular QD one time shingrix step 2 ( step 1 given 11/04/21) WITH needle - Nursing please administer upon arrival and once administered 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, utilities estimator and drafter, 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, and lot# so we can update [facility]IC 02/18/20 22 022 Inactive dispense with needle Shingrix (PF) 50 mcg/0.5 mL intramuscular suspension, kit RxNorm: 2367922 Administer 1/2 Milliliter(s) Intramuscular QD one time shingrix step 2 ( step 1 given 11/04/21) WITH needle - Nursing please administer upon arrival and once administered 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, utilities estimator and drafter, 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, and lot# so we can update CTIC 02/18/20 22 022 Inactive dispense with needle acetaminophen 500 mg tablet RxNorm: 038173 Take 1 Tablet(s) Oral TID 01/08/20 22 023 Active d/c PRN order Lyrica 150 mg capsule RxNorm: 851585 Take 1 Capsule(s) Oral QHS every night at bedtime 01/08/20 22 023 Inactive d/c 100mg dose polyethylene glycol 3350 17 gram/dose oral powder RxNorm: 922318 Take 17=1 capful Gram(s) Oral QD mix with 4-8oz of liquid 01/08/20 22 023 Active take this in addition to BID prn order Lyrica 100 mg capsule RxNorm: 657625 Take 1 Capsule(s) Oral QAM every morning 01/08/20 22 022 Inactive d/c 50mg dose Abilify 5 mg tablet RxNorm: 984282 Take 1 Tablet(s) Oral QD take 1 tab po QD #30 refill 5 dx: MDD 12/12/19 22 022 Inactive Abilify 5 mg tablet RxNorm: 355435 Take 1 Tablet(s) Oral QD take 1 tab po QD #30 refill 5 dx: MDD 12/12/19 22 022 Inactive chlorthalidone 25 mg tablet RxNorm: 809735 Take 1 Tablet(s) Oral QAM every morning 12/10/19 22 023 Active Novolog Flexpen U-100 Insulin aspart 100 unit/mL (3 mL) subcutaneous RxNorm: 0119356 Inject 42 Unit(s) Subcutaneous TID in addition to sliding scale 12/10/19 22 022 Inactive d/c 36u pregabalin 50 mg capsule RxNorm: 516356 Take 1 Capsule(s) Oral QAM every morning 11/12/19 22 Inactive tetanus-diphtheria toxoids-Td 2 Lf unit-2 Lf unit/0.5 mL IM suspension RxNorm: 139 Take 0.5 Miscellaneous Intramuscular 11/12/19 22 022 Inactive need tdap - nursing to administer upon arrival pregabalin 50 mg capsule RxNorm: 831017 Take 1 Capsule(s) Oral QAM every morning 10/16/19 022 Inactive pregabalin 50 mg capsule RxNorm: 749210 Take 1 Capsule(s) Oral QAM every morning 10/16/19 22 022 Inactive pregabalin 50 mg capsule RxNorm: 926659 1 Capsule(s) Oral QAM every morning 10/15/19 22 022 Inactive Shingrix (PF) 50 mcg/0.5 mL intramuscular suspension, kit RxNorm: 4464510 Administer 1/2 Milliliter(s) Intramuscular one time Nursing please administer upon arrival and once administered 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, utilities estimator and drafter, 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 10/09/19 22 022 Inactive shingrix step 1 Shingrix (PF) 50 mcg/0.5 mL intramuscular suspension, kit RxNorm: 5353476 Administer 1/2 Milliliter(s) Intramuscular one time Nursing please administer upon arrival and once administered 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, utilities estimator and drafter, 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 10/09/19 22 022 Inactive shingrix step 1 Novolog Flexpen U-100 Insulin aspart 100 unit/mL (3 mL) subcutaneous RxNorm: 0765941 Inject 10 Unit(s) Subcutaneous QHS every night at bedtime with nighttime snack 10/08/19 22 022 Inactive cholecalciferol (vitamin D3) 1,250 mcg (50,000 unit) capsule RxNorm: 546521 Take 1 Capsule(s) Oral QW once a [...] 50 mcg/0.5 mL intramuscular suspension, kit RxNorm: 3368389 ADMINISTER 2-DOSE SERIES PER CDC GUIDELINES 10/08/19 22 Active Shingrix (PF) 50 mcg/0.5 mL intramuscular suspension, kit RxNorm: 1019783 ADMINISTER 2-DOSE SERIES PER CDC GUIDELINES 10/08/19 22 Inactive Novolog Flexpen U-100 Insulin aspart 100 unit/mL (3 mL) subcutaneous RxNorm: 6766697 Inject 36 Unit(s) Subcutaneous TID in addition to sliding scale 10/08/19 22 Inactive Novofine Autocover 30 gauge x 1/3 needle RxNorm: Use 1 Miscellaneous UD as directed Use 1 needle as directed to administer insulin 5 times a day Dx:E11.42. 10/03/19 Inactive ok to substitute with any covered alternative pen needle benzoyl peroxide 10 % topical cleanser RxNorm: 097927 Apply 1 Application Topical QD apply to face, wash rinse and dry once daily (may change to QOD if drying) 08/19/19 22 022 Inactive (%covered by insurance) #60ml refill 11 dx: acne benzoyl peroxide 10 % topical cleanser RxNorm: 921071 Apply 1 Application Topical QD apply to face, wash rinse and dry once daily (may change to QOD if drying) 08/19/19 22 022 Inactive (%covered by insurance) #60ml refill 11 dx: acne benzoyl peroxide 10 % topical cleanser RxNorm: 520019 Apply 1 Application Topical QD apply to face, wash rinse and dry once daily (may change to QOD if drying) 08/19/19 22 022 Inactive (%covered by insurance) #60ml refill 11 dx: acne Lyrica 50 mg capsule RxNorm: 668562 Take 1 Capsule(s) Oral QAM every morning Take 1 capsule by mouth once daily 08/19/19 22 022 Inactive benzoyl peroxide 10 % topical cleanser RxNorm: 180038 Apply 1 Application Topical QD apply to face, wash rinse and dry once daily (may change to QOD if drying) 08/19/19 22 022 Inactive (%covered by insurance) #60ml refill 11 dx: acne Lyrica 100 mg capsule RxNorm: 921251 Take 1 Capsule(s) Oral QHS every night at bedtime Take 1 capsule by mouth once daily at bedtime 08/19/19 22 022 Inactive Lyrica 100 mg capsule RxNorm: 507954 Take 1 Capsule(s) Oral QHS every night at bedtime Take 1 capsule by mouth once daily at bedtime 08/16/19 22 022 Inactive Lyrica 50 mg capsule RxNorm: 429140 Take 1 Capsule(s) Oral QAM every morning Take 1 capsule by mouth once daily 08/16/19 22 022 Inactive Levemir FlexTouch U-100 Insulin 100 unit/mL (3 mL) subcutaneous pen RxNorm: 541162 Inject 86 Unit(s) Subcutaneous BID 08/05/19 22 022 Inactive d/c 83units BID Lyrica 100 mg capsule RxNorm: 911073 Take 1 Capsule(s) Oral QHS every night at bedtime Take 1 capsule by mouth once daily at bedtime 07/14/19 22 022 Inactive Lyrica 50 mg capsule RxNorm: 296036 Take 1 Capsule(s) Oral QAM every morning Take 1 capsule by mouth once daily 07/14/19 22 022 Inactive Levemir FlexTouch U-100 Insulin 100 unit/mL (3 mL) subcutaneous pen RxNorm: 532983 Inject 83 Unit(s) Subcutaneous BID 07/08/19 22 [...] test strip hydralazine 50 mg tablet RxNorm: 243751 Take 1 Tablet(s) Oral QID 05/05/20 21 022 Inactive isosorbide mononitrate ER 30 mg tablet,extended release 24 hr RxNorm: 639387 Take 1 Tablet(s) Oral QD 05/05/20 No Stop Date Active venlafaxine ER 225 mg tablet,extended release 24 hr RxNorm: 748882 Take 1 Tablet(s) Oral QD 05/05/20 21 021 Inactive venlafaxine ER 225 mg tablet,extended release 24 hr RxNorm: 659067 Take 1 Tablet(s) Oral QD 05/05/20 022 Inactive hydralazine 50 mg tablet RxNorm: 156940 Take 1 Tablet(s) Oral QID 05/05/20 Inactive aspirin 81 mg tablet,delayed release RxNorm: 150491 Take 1 Tablet(s) Oral QD 03/31/20 Inactive Zetia 10 mg tablet RxNorm: 262774 Take 1 Tablet(s) Oral QD 03/31/20 Inactive Vitamin D2 1,250 mcg (50,000 unit) capsule RxNorm: 9878339 Take 1 Capsule(s) Oral QW once a week x 12 weeks 03/31/20 Inactive Vitamin D2 1,250 mcg (50,000 unit) capsule RxNorm: 1190149 Take 1 Capsule(s) Oral QW once a week 03/31/20 Inactive Zetia 10 mg tablet RxNorm: 843525 Take 1 Tablet(s) Oral QD 03/31/20 Inactive hydralazine 25 mg tablet RxNorm: 665074 Take 1 Tablet(s) Oral QID 03/31/20 021 Inactive hydralazine 25 mg tablet RxNorm: 132033 Take 1 Tablet(s) Oral QID 03/31/20 Inactive hydralazine 10 mg tablet RxNorm: 406423 Take 1 Tablet(s) Oral QID 03/03/20 021 Inactive cephalexin 500 mg tablet RxNorm: 702859 Take 1 Tablet(s) Oral QID 02/27/20 021 Inactive cephalexin 500 mg tablet RxNorm: 893106 Take 1 Tablet(s) Oral QID 02/27/20 021 Inactive lisinopril 40 mg tablet RxNorm: 582572 Take 1 Tablet(s) Oral QD 02/11/20 023 Inactive Eliquis 5 mg tablet RxNorm: 1985803 Take 1 Tablet(s) Oral BID 01/05/20 022 Inactive Eliquis 5 mg tablet RxNorm: 5492816 Take 2 Tablet(s) Oral QD 01/01/20 21 021 Inactive Lyrica 50 mg capsule RxNorm: 495868 Take 1 Capsule(s) Oral QAM every morning 12/24/19 021 Inactive Lyrica 100 mg capsule RxNorm: 532009 Take 1 Capsule(s) Oral QHS every night at bedtime 12/24/19 021 Inactive clotrimazole 1 % topical cream RxNorm: 065285 Apply to right foot and toes Topical BID 12/04/19 21 023 Inactive metoprolol succinate ER 200 mg tablet,extended release 24 hr RxNorm: 444792 Take 1 Tablet(s) Oral QD 12/04/19 023 Inactive ciprofloxacin 500 mg tablet RxNorm: 272755 Take 1 Tablet(s) Oral QD 11/30/19 021 Inactive DX ofloxacin otic drops Accu-Chek Guide test strips RxNorm: USE 1 TO CHECK GLUCOSE 4 TIMES DAILY AND NEEDED 11/15/19 21 023 Inactive Blood Glucose Test strips RxNorm: Use 1 Test Strip QID at PRN 11/05/19 21 023 Inactive E11.42 lisinopril 30 mg tablet RxNorm: 878629 Take 1 Tablet(s) Oral QD 10/30/19 021 Inactive lisinopril 20 mg tablet RxNorm: 956599 Take 1 Tablet(s) Oral QD 10/23/19 021 Inactive lisinopril 20 mg tablet RxNorm: 208456 Take 1 Tablet(s) Oral QD 10/23/19 021 Inactive lisinopril 10 mg tablet RxNorm: 066885 Take 1 Tablet(s) Oral QD 10/02/19 21 021 Inactive icosapent ethyl 1 gram capsule RxNorm: 8071213 Take 2 Capsule(s) (2 gm) Oral BID with meals 09/12/19 21 022 Inactive Okay to dispense one 2gm tab if you have that available. icosapent ethyl 1 gram capsule RxNorm: 7558805 Take 2 Capsule(s) Oral BID 09/12/19 21 Inactive Okay to dispense one 2gm tab if you have that available. amlodipine 10 mg tablet RxNorm: 431761 Take 1 Tablet(s) Oral QD 09/04/19 022 Inactive aspirin 81 mg tablet,delayed release RxNorm: 174367 Take 1 Tablet(s) Oral QD 09/04/19 Inactive Levemir FlexTouch U-100 Insulin 100 unit/mL (3 mL) subcutaneous pen RxNorm: 501415 Inject 150 Unit(s) Subcutaneous BID 09/04/19 Inactive venlafaxine ER 150 mg tablet,extended release 24 hr RxNorm: 937599 Take 1 Tablet(s) Oral QD 09/04/19 Inactive clotrimazole-betame thasone 1 %-0.05 % topical cream RxNorm: 873980 Apply to rash on red area on left abdomen/chest Topical BID 08/10/19 Inactive amlodipine 5 mg tablet RxNorm: 976154 Take 1 Tablet(s) Oral QD 07/31/19 Inactive cephalexin 500 mg tablet RxNorm: 119470 Take 1 Tablet(s) Oral BID BID - Twice Daily 07/31/19 021 Inactive Start 08/01/20 pantoprazole 40 mg tablet,delayed release RxNorm: 845518 Take 1 Tablet(s) Oral QAM every morning 07/08/19 022 Inactive senna 8.6 mg tablet RxNorm: 526948 Take 1 Tablet(s) Oral QD 07/08/19 022 Inactive pravastatin 80 mg tablet RxNorm: 559921 Take 1 Tablet(s) Oral QHS every night at bedtime 07/08/19 Inactive carbamazepine 200 mg tablet RxNorm: 682085 Take 1 Tablet(s) Oral BID 07/08/19 022 Inactive torsemide 20 mg tablet RxNorm: 002193 Take 1 Tablet(s) Oral QD 07/08/19 21 023 Inactive clopidogrel 75 mg tablet RxNorm: 547800 Take 1 Tablet(s) Oral QD 07/08/19 21 021 Inactive Blood Glucose Test strips RxNorm: Use 1 Test Strip QID at PRN 07/08/19 21 Inactive E11.42 Novolog Flexpen U-100 Insulin aspart 100 unit/mL (3 mL) subcutaneous RxNorm: 9413842 Administer per sliding scale Milliliter(s) Subcutaneous TID 151-200: 10 u; 201-250: 20 u; 251-300: 30 u; 301-350: 40 u; 351-400: 50 u. 07/08/19 21 022 Inactive lisinopril 5 mg tablet RxNorm: 003615 Take 1 Tablet(s) Oral QD 07/08/19 021 Inactive Novolog Flexpen U-100 Insulin aspart 100 unit/mL (3 mL) subcutaneous RxNorm: 7617922 Inject 85 Unit(s) Subcutaneous TID 07/08/19 21 022 Inactive clotrimazole 1 % topical cream RxNorm: 790020 Apply to bilateral groin areas Topical BID 07/08/19 21 022 Inactive metoprolol succinate ER 200 mg tablet,extended release 24 hr RxNorm: 632220 Take 1 Tablet(s) Oral QD 07/08/19 21 021 Inactive Vitamin D3 25 mcg (1,000 unit) tablet RxNorm: 213094 Take 1 Tablet(s) Oral QD 07/08/19 021 Inactive isosorbide dinitrate 30 mg tablet RxNorm: 969068 Take 1 Tablet(s) Oral QD 07/08/19 21 021 Inactive Levemir FlexTouch U-100 Insulin 100 unit/mL (3 mL) subcutaneous pen RxNorm: 451722 Inject 140 Unit(s) Subcutaneous BID 07/08/19 21 021 Inactive venlafaxine 75 mg tablet RxNorm: 782715 Take 1 Tablet(s) Oral QD 07/08/19 21 021 Inactive acetaminophen 500 mg tablet RxNorm: 030902 Take 1 Tablet(s) Oral TID as needed for headache 06/18/19 21 021 Inactive acetaminophen 500 mg tablet RxNorm: 521540 Take 1 Tablet(s) Oral TID as needed for headache 06/18/19 21 021 Inactive Lyrica 100 mg capsule RxNorm: 596620 Take 1 Capsule(s) Oral QHS every night at bedtime 06/11/19 21 021 Inactive Lyrica 50 mg capsule RxNorm: 650801 Take 1 Capsule(s) Oral QAM every morning 06/10/19 21 021 Inactive hydrocortisone 2.5 % topical cream RxNorm: 752232 Apply to bilateral groin creases Topical BID 05/15/20 20 021 Inactive clotrimazole 1 % topical cream RxNorm: 137299 Apply to bilateral groin areas Topical BID 05/15/20 20 021 Inactive Lyrica 50 mg capsule RxNorm: 336269 Take 1 Capsule(s) Oral QAM every morning 05/14/20 20 020 Inactive Lyrica 100 mg capsule RxNorm: 774074 Take 1 Capsule(s) Oral QHS every night [...] Inactive Nystop 100,000 unit/gram topical powder RxNorm: 549812 Apply to abd folds, under breasts and L side of groin Topical BID x 14 days, then BID PRN 04/08/20 20 Inactive dx: yeast dermatitis Lyrica 100 mg capsule RxNorm: 366505 Take 1 Capsule(s) Oral QHS every night at bedtime 03/13/20 Inactive Lyrica 50 mg capsule RxNorm: 034282 Take 1 Capsule(s) Oral QAM every morning 03/13/20 20 Inactive ketoconazole 2 % shampoo RxNorm: 954439 Apply Topical two times a week with showers 03/11/20 20 Inactive cholecalciferol (vitamin D3) 50 mcg (2,000 unit) tablet RxNorm: 856112 Take 1 Tablet(s) Oral QD 03/11/20 Inactive Zetia 10 mg tablet RxNorm: 410753 Take 1 Tablet(s) Oral QD 03/07/20 20 Inactive Zetia 10 mg tablet RxNorm: 587457 Take 1 Tablet(s) Oral QD 03/07/20 20 Inactive Lyrica 50 mg capsule RxNorm: 738576 Take 1 Capsule(s) Oral QAM every morning 02/15/20 20 Inactive Lyrica 100 mg capsule RxNorm: 920915 Take 1 Capsule(s) Oral QHS every night at bedtime 02/15/20 20 Inactive Lyrica 100 mg capsule RxNorm: 030736 Take 1 Capsule(s) Oral QHS every night at bedtime 02/15/20 20 Inactive Lyrica 50 mg capsule RxNorm: 809387 Take 1 Capsule(s) Oral QAM every morning 02/15/20 20 Inactive venlafaxine ER 75 mg capsule,extended release 24 hr RxNorm: 232181 Take 3 Capsule(s) Oral QD 06/12/19 Active polyethylene glycol 3350 17 gram/dose oral powder RxNorm: 955822 Take 17=1 capful Gram(s) Oral BID as needed mix with 4-8oz of liquid 06/12/19 Active Levemir FlexTouch U-100 Insulin 100 unit/mL (3 mL) subcutaneous pen RxNorm: 221754 Inject 80 Unit(s) Subcutaneous BID 07/14/19 023 Inactive loperamide 2 mg capsule RxNorm: 959660 Take 1 Capsule(s) Oral QID as needed 06/12/19 Active Novolog Flexpen U-100 Insulin aspart 100 unit/mL (3 mL) subcutaneous RxNorm: 0233127 Insert 30 Unit(s) Subcutaneous TID with meals [...] Encounter Performer Location Location Address Codes Date (83447) DOMICIL VISIT EST PAT w/95 modifier Diagnosis: Hypertensive heart disease without heart failure[ICD10: I11.9] Diagnosis: Hyperlipidemia associated with type 2 diabetes mellitus[ICD10: E11.69] Diagnosis: Stage 2 chronic 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[ICD10: E11.22] Diagnosis: Type 2 diabetes mellitus with diabetic polyneuropathy, with long-term current use of insulin[ICD10: E11.42] Diagnosis: Vitamin D deficiency[ICD10: E55.9] Diagnosis: Coronary artery disease involving ely shoshone coronary artery of ely shoshone heart, angina presence unspecified[ICD10: I25.10] Diagnosis: Shortness of breath[ICD10: R06.02] Tapan Shirley [facility] [address] [address] [place] [address] CPT-4: 14831 04/07/2022 Plan of Care Planned Activity Notes Codes Status Date Referral: [facility] W[facility]: [address], [address] [id number] Referral Records Received 09/21/2022 Patient Education: Patient M edication Summary Completed 04/07/2022 Patient Education: Influenza Vaccine Completed 04/07/2022 Appointment: Tapan Shirley WPtel: [address] [place] [address] [address] [id number] F/U 02/10/2022 Referral: [facility] WPtel: [address] [id number] [place] Referral Completed 05/28/2021 Referral: General Cardiology [...] a hospitalization 05/2021 he moved to the [facility] to have closer nursing attention.??Sister Jyotsna involved in his care cell# [phone]??Guardian: Don (tapan met in person 09/01/21), now has Lexii (same group as don)Lab Schedule: * 10/06/2022 Diabetes A1C high (9.4%), advising facility to fax BG log and a1c to order runner for review and to make the necessary changes.?? Shortness of breath SOB seems to wax and wane, likely due to undiagnosed COPD and uncontrolled TASHI (patient has been refusing to wear CPAP). Will start inhaler prn and advised patient to use CPAP as much as possible. Has f/u with preparation plant repairer in May, less concerned about cardiac cause of SOB as no reported orthopnea.?? Hypertension Patient continues to push off seeing his preparation plant repairer, has appt made for may. BPs variable but he's asymptomatic at this time so will make no changes.?? Vitamin D Deficiency 03/16/22 D level 33, continue supplement.?? Ischemic Heart Disease Should be seen by preparation plant repairer sooner than May but patient refuses. C/O SOB with exertion, will start inhaler but cards should also be made aware.?? . 04/07/2022
--- OUTSIDE RECORDS SUMMARY | 2022-11-09 23:31 | XMS_ITS | CCD ---
Author Name Unknown Organization Unknown Care Team Providers Care Drafter Geophysical Name Role Phone Tapan Shirley PA-C Primary Care Provider Unavailabl e Tapan Shirley PA-C Chronic Care Management Unavaila ble Summary Purpose DataExchange Insurance Providers Payer name Policy type / Coverage type Covered green party ID Effective Begin Date Effective End Date [place] [id number] [place] Unknown [place] [id number] Unknown Unknown Family history Sister Brittany Suggs [...] 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 09/03/[address]: 5873610 Non-Smoker / No History of Smoking 09/02/[address]: 185502705 No Alcohol Consum ption 09/02/2020 Allergies, Adverse Reactions, Alerts Substance Reaction Codes Entered Date Inactivated Date Status LISINOPRIL RxNorm: 85551 02/12/2020 No Inactive Da te Active Metformin HCl Unknown 02/12/2020 No Inactive Cristiano e Active Problems Condition Codes Effective Dates Condition St atus Coronary artery disease invo lving [place] coronary artery of [place] heart, angina presence unspecified ICD-10: I25.10 ICD-9: [...] ICD-10: Z23 ICD-9: V03.89 02/10/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 [...] aspart 100 unit/mL (3 mL) subcutaneous RxNorm: 8097048 Inject 10 Unit(s) Subcutaneous QHS every night at bedtime with nighttime snack 04/08/20 Inactive Novolog Flexpen U-100 Insulin aspart 100 unit/mL (3 mL) subcutaneous RxNorm: 4863239 Inject 42 Unit(s) Subcutaneous TID in addition to sliding scale 04/08/20 Inactive d/c 36u albuterol sulfate HFA 90 mcg/actuation aerosol inhaler RxNorm: 0972374 Take 2 Puff(s) Inhalation Q4H every four hours as needed as needed for SOB, cough, or wheezing 04/07/20 030 Active diphenhydramine 50 mg tablet RxNorm: 0719332 Take 1 Tablet(s) Oral Q6H every 6 hours as needed 04/06/20 22 022 Inactive diphenhydramine 50 mg tablet RxNorm: 9854269 1 Tablet(s) Oral Q6H every 6 hours as needed 04/06/20 022 Inactive Abilify 15 mg tablet RxNorm: 917732 1/2 Tablet(s) Oral QD 03/10/20 22 023 Inactive Shingrix (PF) 50 mcg/0.5 mL intramuscular suspension, kit RxNorm: 9243598 Administer 1/2 Milliliter(s) Intramuscular QD one time shingrix step 2 ( step 1 given 11/04/21) WITH needle - Nursing please administer upon arrival and once administered 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, fusing machine feeder, 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, and lot# so we can update [facility] 02/18/20 22 022 Inactive dispense with needle Shingrix (PF) 50 mcg/0.5 mL intramuscular suspension, kit RxNorm: 8220226 Administer 1/2 Milliliter(s) Intramuscular QD one time shingrix step 2 ( step 1 given 11/04/21) WITH needle - Nursing please administer upon arrival and once administered 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, fusing machine feeder, 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, and lot# so we can update [facility] 02/18/20 22 022 Inactive dispense with needle acetaminophen 500 mg tablet RxNorm: 564624 Take 1 Tablet(s) Oral TID 01/08/20 22 023 Active d/c PRN order Lyrica 150 mg capsule RxNorm: 525705 Take 1 Capsule(s) Oral QHS every night at bedtime 01/08/20 22 023 Inactive d/c 100mg dose polyethylene glycol 3350 17 gram/dose oral powder RxNorm: 705929 Take 17=1 capful Gram(s) Oral QD mix with 4-8oz of liquid 01/08/20 22 023 Active take this in addition to BID prn order Lyrica 100 mg capsule RxNorm: 216513 Take 1 Capsule(s) Oral QAM every morning 01/08/20 22 022 Inactive d/c 50mg dose Abilify 5 mg tablet RxNorm: 157834 Take 1 Tablet(s) Oral QD take 1 tab po QD #30 refill 5 dx: MDD 12/12/19 22 022 Inactive Abilify 5 mg tablet RxNorm: 489089 Take 1 Tablet(s) Oral QD take 1 tab po QD #30 refill 5 dx: MDD 12/12/19 22 022 Inactive chlorthalidone 25 mg tablet RxNorm: 977773 Take 1 Tablet(s) Oral QAM every morning 12/10/19 22 023 Active Novolog Flexpen U-100 Insulin aspart 100 unit/mL (3 mL) subcutaneous RxNorm: 1166916 Inject 42 Unit(s) Subcutaneous TID in addition to sliding scale 12/10/19 22 022 Inactive d/c 36u pregabalin 50 mg capsule RxNorm: 529265 Take 1 Capsule(s) Oral QAM every morning 11/12/19 22 022 Inactive tetanus-diphtheria toxoids-Td 2 Lf unit-2 Lf unit/0.5 mL IM suspension RxNorm: 139 Take 0.5 Miscellaneous Intramuscular 11/12/19 022 Inactive need tdap - nursing to administer upon arrival pregabalin 50 mg capsule RxNorm: 097691 Take 1 Capsule(s) Oral QAM every morning 10/16/19 22 022 Inactive pregabalin 50 mg capsule RxNorm: 584315 Take 1 Capsule(s) Oral QAM every morning 10/16/19 22 022 Inactive pregabalin 50 mg capsule RxNorm: 156424 1 Capsule(s) Oral QAM every morning 10/15/19 22 022 Inactive Shingrix (PF) 50 mcg/0.5 mL intramuscular suspension, kit RxNorm: 2159836 Administer 1/2 Milliliter(s) Intramuscular one time Nursing please administer upon arrival and once administered 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, fusing machine feeder, 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 10/09/19 22 022 Inactive shingrix step 1 Shingrix (PF) 50 mcg/0.5 mL intramuscular suspension, kit RxNorm: 3901489 Administer 1/2 Milliliter(s) Intramuscular one time Nursing please administer upon arrival and once administered 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, fusing machine feeder, 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 10/09/19 22 022 Inactive shingrix step 1 Novolog Flexpen U-100 Insulin aspart 100 unit/mL (3 mL) subcutaneous RxNorm: 9541436 Inject 10 Unit(s) Subcutaneous QHS every night at bedtime with nighttime snack 10/08/19 22 Inactive cholecalciferol (vitamin D3) 1,250 mcg (50,000 unit) capsule RxNorm: 556563 Take 1 Capsule(s) Oral QW once a [...] 50 mcg/0.5 mL intramuscular suspension, kit RxNorm: 3985104 ADMINISTER 2-DOSE SERIES PER CDC GUIDELINES 10/08/19 22 Active Shingrix (PF) 50 mcg/0.5 mL intramuscular suspension, kit RxNorm: 1474194 ADMINISTER 2-DOSE SERIES PER CDC GUIDELINES 10/08/19 22 Inactive Novolog Flexpen U-100 Insulin aspart 100 unit/mL (3 mL) subcutaneous RxNorm: 9177828 Inject 36 Unit(s) Subcutaneous TID in addition to sliding scale 10/08/19 22 Inactive Novofine Autocover 30 gauge x 1/3 needle RxNorm: Use 1 Miscellaneous UD as directed Use 1 needle as directed to administer insulin 5 times a day Dx:E11.42. 10/03/19 Inactive ok to substitute with any covered alternative pen needle benzoyl peroxide 10 % topical cleanser RxNorm: 770438 Apply 1 Application Topical QD apply to face, wash rinse and dry once daily (may change to QOD if drying) 08/19/19 22 Inactive (%covered by insurance) #60ml refill 11 dx: acne benzoyl peroxide 10 % topical cleanser RxNorm: 617268 Apply 1 Application Topical QD apply to face, wash rinse and dry once daily (may change to QOD if drying) 08/19/19 22 022 Inactive (%covered by insurance) #60ml refill 11 dx: acne benzoyl peroxide 10 % topical cleanser RxNorm: 287065 Apply 1 Application Topical QD apply to face, wash rinse and dry once daily (may change to QOD if drying) 08/19/19 22 022 Inactive (%covered by insurance) #60ml refill 11 dx: acne Lyrica 50 mg capsule RxNorm: 967838 Take 1 Capsule(s) Oral QAM every morning Take 1 capsule by mouth once daily 08/19/19 22 022 Inactive benzoyl peroxide 10 % topical cleanser RxNorm: 001133 Apply 1 Application Topical QD apply to face, wash rinse and dry once daily (may change to QOD if drying) 08/19/19 22 022 Inactive (%covered by insurance) #60ml refill 11 dx: acne Lyrica 100 mg capsule RxNorm: 635912 Take 1 Capsule(s) Oral QHS every night at bedtime Take 1 capsule by mouth once daily at bedtime 08/19/19 22 022 Inactive Lyrica 100 mg capsule RxNorm: 454168 Take 1 Capsule(s) Oral QHS every night at bedtime Take 1 capsule by mouth once daily at bedtime 08/16/19 22 Inactive Lyrica 50 mg capsule RxNorm: 699117 Take 1 Capsule(s) Oral QAM every morning Take 1 capsule by mouth once daily 08/16/19 22 Inactive Levemir FlexTouch U-100 Insulin 100 unit/mL (3 mL) subcutaneous pen RxNorm: 612265 Inject 86 Unit(s) Subcutaneous BID 08/05/19 22 022 Inactive d/c 83units BID Lyrica 100 mg capsule RxNorm: 975265 Take 1 Capsule(s) Oral QHS every night at bedtime Take 1 capsule by mouth once daily at bedtime 07/14/19 22 022 Inactive Lyrica 50 mg capsule RxNorm: 099850 Take 1 Capsule(s) Oral QAM every morning Take 1 capsule by mouth once daily 07/14/19 Inactive Levemir FlexTouch U-100 Insulin 100 unit/mL (3 mL) subcutaneous pen RxNorm: 985813 Inject 83 Unit(s) Subcutaneous BID 07/08/19 22 [...] test strip hydralazine 50 mg tablet RxNorm: 065619 Take 1 Tablet(s) Oral QID 05/05/20 21 022 Inactive isosorbide mononitrate ER 30 mg tablet,extended release 24 hr RxNorm: 558447 Take 1 Tablet(s) Oral QD 05/05/20 No Stop Date Active venlafaxine ER 225 mg tablet,extended release 24 hr RxNorm: 169078 Take 1 Tablet(s) Oral QD 05/05/20 21 Inactive venlafaxine ER 225 mg tablet,extended release 24 hr RxNorm: 882092 Take 1 Tablet(s) Oral QD 05/05/20 022 Inactive hydralazine 50 mg tablet RxNorm: 375718 Take 1 Tablet(s) Oral QID 05/05/20 Inactive aspirin 81 mg tablet,delayed release RxNorm: 113813 Take 1 Tablet(s) Oral QD 03/31/20 Inactive Zetia 10 mg tablet RxNorm: 900092 Take 1 Tablet(s) Oral QD 03/31/20 Inactive Vitamin D2 1,250 mcg (50,000 unit) capsule RxNorm: 0714223 Take 1 Capsule(s) Oral QW once a week x 12 weeks 03/31/20 Inactive Vitamin D2 1,250 mcg (50,000 unit) capsule RxNorm: 9326026 Take 1 Capsule(s) Oral QW once a week 03/31/20 Inactive Zetia 10 mg tablet RxNorm: 585802 Take 1 Tablet(s) Oral QD 03/31/20 Inactive hydralazine 25 mg tablet RxNorm: 147698 Take 1 Tablet(s) Oral QID 03/31/20 Inactive hydralazine 25 mg tablet RxNorm: 898819 Take 1 Tablet(s) Oral QID 03/31/20 Inactive hydralazine 10 mg tablet RxNorm: 336166 Take 1 Tablet(s) Oral QID 03/03/20 Inactive cephalexin 500 mg tablet RxNorm: 486123 Take 1 Tablet(s) Oral QID 02/27/20 021 Inactive cephalexin 500 mg tablet RxNorm: 599579 Take 1 Tablet(s) Oral QID 02/27/20 021 Inactive lisinopril 40 mg tablet RxNorm: 950641 Take 1 Tablet(s) Oral QD 02/11/20 023 Inactive Eliquis 5 mg tablet RxNorm: 4138165 Take 1 Tablet(s) Oral BID 01/05/20 21 022 Inactive Eliquis 5 mg tablet RxNorm: 3038693 Take 2 Tablet(s) Oral QD 01/01/20 21 021 Inactive Lyrica 50 mg capsule RxNorm: 311390 Take 1 Capsule(s) Oral QAM every morning 12/24/19 21 021 Inactive Lyrica 100 mg capsule RxNorm: 061563 Take 1 Capsule(s) Oral QHS every night at bedtime 12/24/19 021 Inactive clotrimazole 1 % topical cream RxNorm: 404315 Apply to right foot and toes Topical BID 12/04/19 21 023 Inactive metoprolol succinate ER 200 mg tablet,extended release 24 hr RxNorm: 399658 Take 1 Tablet(s) Oral QD 12/04/19 023 Inactive ciprofloxacin 500 mg tablet RxNorm: 942498 Take 1 Tablet(s) Oral QD 11/30/19 21 021 Inactive DX ofloxacin otic drops Accu-Chek Guide test strips RxNorm: USE 1 TO CHECK GLUCOSE 4 TIMES DAILY AND NEEDED 11/15/19 21 023 Inactive Blood Glucose Test strips RxNorm: Use 1 Test Strip QID at PRN 11/05/19 21 023 Inactive E11.42 lisinopril 30 mg tablet RxNorm: 174311 Take 1 Tablet(s) Oral QD 10/30/19 021 Inactive lisinopril 20 mg tablet RxNorm: 502807 Take 1 Tablet(s) Oral QD 10/23/19 21 021 Inactive lisinopril 20 mg tablet RxNorm: 489822 Take 1 Tablet(s) Oral QD 10/23/19 21 021 Inactive lisinopril 10 mg tablet RxNorm: 187436 Take 1 Tablet(s) Oral QD 10/02/19 21 021 Inactive icosapent ethyl 1 gram capsule RxNorm: 0036087 Take 2 Capsule(s) (2 gm) Oral BID with meals 09/12/19 Inactive Okay to dispense one 2gm tab if you have that available. icosapent ethyl 1 gram capsule RxNorm: 6297746 Take 2 Capsule(s) Oral BID 09/12/19 Inactive Okay to dispense one 2gm tab if you have that available. amlodipine 10 mg tablet RxNorm: 775425 Take 1 Tablet(s) Oral QD 09/04/19 Inactive aspirin 81 mg tablet,delayed release RxNorm: 197137 Take 1 Tablet(s) Oral QD 09/04/19 21 Inactive Levemir FlexTouch U-100 Insulin 100 unit/mL (3 mL) subcutaneous pen RxNorm: 322117 Inject 150 Unit(s) Subcutaneous BID 09/04/19 Inactive venlafaxine ER 150 mg tablet,extended release 24 hr RxNorm: 386693 Take 1 Tablet(s) Oral QD 09/04/19 21 Inactive clotrimazole-betame thasone 1 %-0.05 % topical cream RxNorm: 047237 Apply to rash on red area on left abdomen/chest Topical BID 08/10/19 21 Inactive amlodipine 5 mg tablet RxNorm: 830668 Take 1 Tablet(s) Oral QD 07/31/19 Inactive cephalexin 500 mg tablet RxNorm: 574626 Take 1 Tablet(s) Oral BID BID - Twice Daily 07/31/19 021 Inactive Start 08/01/20 pantoprazole 40 mg tablet,delayed release RxNorm: 473135 Take 1 Tablet(s) Oral QAM every morning 07/08/19 022 Inactive senna 8.6 mg tablet RxNorm: 910496 Take 1 Tablet(s) Oral QD 07/08/19 022 Inactive pravastatin 80 mg tablet RxNorm: 900576 Take 1 Tablet(s) Oral QHS every night at bedtime 07/08/19 022 Inactive carbamazepine 200 mg tablet RxNorm: 872915 Take 1 Tablet(s) Oral BID 07/08/19 21 022 Inactive torsemide 20 mg tablet RxNorm: 547739 Take 1 Tablet(s) Oral QD 07/08/19 21 023 Inactive clopidogrel 75 mg tablet RxNorm: 096553 Take 1 Tablet(s) Oral QD 07/08/19 21 021 Inactive Blood Glucose Test strips RxNorm: Use 1 Test Strip QID at PRN 07/08/19 21 Inactive E11.42 Novolog Flexpen U-100 Insulin aspart 100 unit/mL (3 mL) subcutaneous RxNorm: 1523375 Administer per sliding scale Milliliter(s) Subcutaneous TID 151-200: 10 u; 201-250: 20 u; 251-300: 30 u; 301-350: 40 u; 351-400: 50 u. 07/08/19 21 022 Inactive lisinopril 5 mg tablet RxNorm: 412397 Take 1 Tablet(s) Oral QD 07/08/19 021 Inactive Novolog Flexpen U-100 Insulin aspart 100 unit/mL (3 mL) subcutaneous RxNorm: 1214369 Inject 85 Unit(s) Subcutaneous TID 07/08/19 022 Inactive clotrimazole 1 % topical cream RxNorm: 391160 Apply to bilateral groin areas Topical BID 07/08/19 21 022 Inactive metoprolol succinate ER 200 mg tablet,extended release 24 hr RxNorm: 896674 Take 1 Tablet(s) Oral QD 07/08/19 021 Inactive Vitamin D3 25 mcg (1,000 unit) tablet RxNorm: 813468 Take 1 Tablet(s) Oral QD 07/08/19 21 021 Inactive isosorbide dinitrate 30 mg tablet RxNorm: 878084 Take 1 Tablet(s) Oral QD 07/08/19 21 021 Inactive Levemir FlexTouch U-100 Insulin 100 unit/mL (3 mL) subcutaneous pen RxNorm: 864821 Inject 140 Unit(s) Subcutaneous BID 07/08/19 021 Inactive venlafaxine 75 mg tablet RxNorm: 791642 Take 1 Tablet(s) Oral QD 07/08/19 21 021 Inactive acetaminophen 500 mg tablet RxNorm: 435316 Take 1 Tablet(s) Oral TID as needed for headache 06/18/19 21 021 Inactive acetaminophen 500 mg tablet RxNorm: 379439 Take 1 Tablet(s) Oral TID as needed for headache 06/18/19 21 021 Inactive Lyrica 100 mg capsule RxNorm: 529597 Take 1 Capsule(s) Oral QHS every night at bedtime 06/11/19 21 021 Inactive Lyrica 50 mg capsule RxNorm: 519315 Take 1 Capsule(s) Oral QAM every morning 06/10/19 21 021 Inactive hydrocortisone 2.5 % topical cream RxNorm: 875895 Apply to bilateral groin creases Topical BID 05/15/20 20 021 Inactive clotrimazole 1 % topical cream RxNorm: 134700 Apply to bilateral groin areas Topical BID 05/15/20 20 021 Inactive Lyrica 50 mg capsule RxNorm: 839857 Take 1 Capsule(s) Oral QAM every morning 05/14/20 20 020 Inactive Lyrica 100 mg capsule RxNorm: 792509 Take 1 Capsule(s) Oral QHS every night [...] Inactive Nystop 100,000 unit/gram topical powder RxNorm: 305130 Apply to abd folds, under breasts and L side of groin Topical BID x 14 days, then BID PRN 04/08/20 20 Inactive dx: yeast dermatitis Lyrica 100 mg capsule RxNorm: 083323 Take 1 Capsule(s) Oral QHS every night at bedtime 03/13/20 20 Inactive Lyrica 50 mg capsule RxNorm: 303283 Take 1 Capsule(s) Oral QAM every morning 03/13/20 Inactive ketoconazole 2 % shampoo RxNorm: 162108 Apply Topical two times a week with showers 03/11/20 20 Inactive cholecalciferol (vitamin D3) 50 mcg (2,000 unit) tablet RxNorm: 953931 Take 1 Tablet(s) Oral QD 03/11/20 20 Inactive Zetia 10 mg tablet RxNorm: 611735 Take 1 Tablet(s) Oral QD 03/07/20 20 Inactive Zetia 10 mg tablet RxNorm: 883424 Take 1 Tablet(s) Oral QD 03/07/20 20 Inactive Lyrica 50 mg capsule RxNorm: 436839 Take 1 Capsule(s) Oral QAM every morning 02/15/20 20 Inactive Lyrica 100 mg capsule RxNorm: 682760 Take 1 Capsule(s) Oral QHS every night at bedtime 02/15/20 20 Inactive Lyrica 100 mg capsule RxNorm: 031361 Take 1 Capsule(s) Oral QHS every night at bedtime 02/15/20 20 Inactive Lyrica 50 mg capsule RxNorm: 528028 Take 1 Capsule(s) Oral QAM every morning 02/15/20 20 Inactive venlafaxine ER 75 mg capsule,extended release 24 hr RxNorm: 293269 Take 3 Capsule(s) Oral QD 01/27/20 22 Active polyethylene glycol 3350 17 gram/dose oral powder RxNorm: 921111 Take 17=1 capful Gram(s) Oral BID as needed mix with 4-8oz of liquid 06/12/19 22 Active Levemir FlexTouch U-100 Insulin 100 unit/mL (3 mL) subcutaneous pen RxNorm: 398245 Inject 80 Unit(s) Subcutaneous BID 07/14/19 23 023 Inactive loperamide 2 mg capsule RxNorm: 793316 Take 1 Capsule(s) Oral QID as needed 06/12/19 22 Active Novolog Flexpen U-100 Insulin aspart 100 unit/mL (3 mL) subcutaneous RxNorm: 0802210 Insert 30 Unit(s) Subcutaneous TID with meals [...] [place]: [address], [address] [id number] [place] Referral Records Received 09/21/2022 Referral: [facility] [place]: [address] [id number] [place] Referral Completed 05/28/2021 Referral: General Cardiology [...] a hospitalization 05/2021 he moved to the [facility] to have closer nursing attention.??Sister Jyotsna involved in his care cell# [phone]??Guardian: Don (tapan met in person 09/01/21), now has Lexii (same group as don)Lab Schedule: * 10/06/2022
--- OUTSIDE RECORDS SUMMARY | 2022-11-09 23:31 | XMS_ITS | CCD ---
Author Name Sandra Clark CNP Address [address] [facility] [address] [facility] [address] [place] [address] Phone Organization [facility] Phone Care Team Providers Care Box Maker Name Role Phone Tapan Shirley PA-C Primary Care Provider Unavailabl e Tapan Shirley PA-C Chronic Care Management Unavaila ble Summary Purpose DataExchange Insurance Providers Payer name Policy type / Coverage type Covered libertarian ID Effective Begin Date Effective End Date [place] Part B [id number] Unknown Unknown [place] Part B [id number] Unknown Unknown Family history Sister Brittany Suggs [...] Alf 09/03/[address]: 4997298 Non-Smoker / No History of Smoking 09/02/[address]: 642624397 No Alcohol Consum ption 09/02/2020 Allergies, Adverse Reactions, Alerts Substance Reaction Codes Entered Date Inactivated Date Status LISINOPRIL RxNorm: 75498 02/12/2020 No Inactive Da te Active Metformin HCl Unknown 02/12/2020 No Inactive Cristiano e Active Problems Condition Codes Effective Dates Condition St atus High risk medication use ICD-10: Z79.899 ICD-9: V58.69 05/01/2022 Active Major depression, recurrent ICD-10: F33. 9 ICD-9: 296.30 05/01/2022 Active Vitamin D deficiency ICD-10: E55.9 ICD-9: 268.9 05/01/2022 Active Coronary artery disease invo lving [place] coronary artery of [place] heart, angina presence unspecified ICD-10: I25.10 ICD-9: [...] immunization ICD-10: Z23 ICD-9: V03.89 02/10/2022 Resolved correction (current) use of insulin ICD-10: Z79.4 02/10 [...] aspart 100 unit/mL (3 mL) subcutaneous RxNorm: 8871875 Inject 10 Unit(s) Subcutaneous QHS every night at bedtime with nighttime snack 04/08/20 022 Inactive Novolog Flexpen U-100 Insulin aspart 100 unit/mL (3 mL) subcutaneous RxNorm: 2498975 Inject 42 Unit(s) Subcutaneous TID in addition to sliding scale 04/08/20 022 Inactive d/c 36u albuterol sulfate HFA 90 mcg/actuation aerosol inhaler RxNorm: 2662356 Take 2 Puff(s) Inhalation Q4H every four hours as needed as needed for SOB, cough, or wheezing 04/07/20 22 030 Active diphenhydramine 50 mg tablet RxNorm: 6123583 Take 1 Tablet(s) Oral Q6H every 6 hours as needed 04/06/20 22 022 Inactive diphenhydramine 50 mg tablet RxNorm: 3442414 1 Tablet(s) Oral Q6H every 6 hours as needed 04/06/20 22 022 Inactive Abilify 15 mg tablet RxNorm: 994230 1/2 Tablet(s) Oral QD 03/10/20 22 023 Inactive Shingrix (PF) 50 mcg/0.5 mL intramuscular suspension, kit RxNorm: 1477919 Administer 1/2 Milliliter(s) Intramuscular QD one time shingrix step 2 ( step 1 given 11/04/21) WITH needle - Nursing please administer upon arrival and once administered 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, real estate administrator, 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, and lot# so we can update [facility] 02/18/20 22 022 Inactive dispense with needle Shingrix (PF) 50 mcg/0.5 mL intramuscular suspension, kit RxNorm: 6069445 Administer 1/2 Milliliter(s) Intramuscular QD one time shingrix step 2 ( step 1 given 11/04/21) WITH needle - Nursing please administer upon arrival and once administered 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, real estate administrator, 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, and lot# so we can update [facility]IC 02/18/20 22 022 Inactive dispense with needle acetaminophen 500 mg tablet RxNorm: 740869 Take 1 Tablet(s) Oral TID 01/08/20 023 Active d/c PRN order Lyrica 150 mg capsule RxNorm: 774999 Take 1 Capsule(s) Oral QHS every night at bedtime 01/08/20 22 023 Inactive d/c 100mg dose polyethylene glycol 3350 17 gram/dose oral powder RxNorm: 878723 Take 17=1 capful Gram(s) Oral QD mix with 4-8oz of liquid 01/08/20 22 023 Active take this in addition to BID prn order Lyrica 100 mg capsule RxNorm: 286813 Take 1 Capsule(s) Oral QAM every morning 01/08/20 22 022 Inactive d/c 50mg dose Abilify 5 mg tablet RxNorm: 997789 Take 1 Tablet(s) Oral QD take 1 tab po QD #30 refill 5 dx: MDD 12/12/19 22 022 Inactive Abilify 5 mg tablet RxNorm: 255516 Take 1 Tablet(s) Oral QD take 1 tab po QD #30 refill 5 dx: MDD 12/12/19 22 022 Inactive chlorthalidone 25 mg tablet RxNorm: 639237 Take 1 Tablet(s) Oral QAM every morning 12/10/19 22 023 Active Novolog Flexpen U-100 Insulin aspart 100 unit/mL (3 mL) subcutaneous RxNorm: 3071830 Inject 42 Unit(s) Subcutaneous TID in addition to sliding scale 12/10/19 22 022 Inactive d/c 36u pregabalin 50 mg capsule RxNorm: 319771 Take 1 Capsule(s) Oral QAM every morning 11/12/19 22 022 Inactive tetanus-diphtheria toxoids-Td 2 Lf unit-2 Lf unit/0.5 mL IM suspension RxNorm: 139 Take 0.5 Miscellaneous Intramuscular 11/12/19 22 022 Inactive need tdap - nursing to administer upon arrival pregabalin 50 mg capsule RxNorm: 426985 Take 1 Capsule(s) Oral QAM every morning 10/16/19 22 022 Inactive pregabalin 50 mg capsule RxNorm: 400334 Take 1 Capsule(s) Oral QAM every morning 10/16/19 22 022 Inactive pregabalin 50 mg capsule RxNorm: 861069 1 Capsule(s) Oral QAM every morning 10/15/19 22 022 Inactive Shingrix (PF) 50 mcg/0.5 mL intramuscular suspension, kit RxNorm: 1267298 Administer 1/2 Milliliter(s) Intramuscular one time Nursing please administer upon arrival and once administered 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, real estate administrator, 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 10/09/19 22 022 Inactive shingrix step 1 Shingrix (PF) 50 mcg/0.5 mL intramuscular suspension, kit RxNorm: 8988325 Administer 1/2 Milliliter(s) Intramuscular one time Nursing please administer upon arrival and once administered 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, real estate administrator, 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 10/09/19 22 Inactive shingrix step 1 cholecalciferol (vitamin D3) 1,250 mcg (50,000 unit) capsule RxNorm: 669597 Take 1 Capsule(s) Oral QW once a [...] aspart 100 unit/mL (3 mL) subcutaneous RxNorm: 3658201 Inject 10 Unit(s) Subcutaneous QHS every night at bedtime with nighttime snack 10/08/19 22 Inactive Shingrix (PF) 50 mcg/0.5 mL intramuscular suspension, kit RxNorm: 6706460 ADMINISTER 2-DOSE SERIES PER CDC GUIDELINES 10/08/19 22 Active Shingrix (PF) 50 mcg/0.5 mL intramuscular suspension, kit RxNorm: 1085971 ADMINISTER 2-DOSE SERIES PER CDC GUIDELINES 10/08/19 22 022 Inactive Novolog Flexpen U-100 Insulin aspart 100 unit/mL (3 mL) subcutaneous RxNorm: 8560065 Inject 36 Unit(s) Subcutaneous TID in addition to sliding scale 10/08/19 22 Inactive Novofine Autocover 30 gauge x 1/3 needle RxNorm: Use 1 Miscellaneous UD as directed Use 1 needle as directed to administer insulin 5 times a day Dx:E11.42. 10/03/19 22 Inactive ok to substitute with any covered alternative pen needle benzoyl peroxide 10 % topical cleanser RxNorm: 497031 Apply 1 Application Topical QD apply to face, wash rinse and dry once daily (may change to QOD if drying) 08/19/19 022 Inactive (%covered by insurance) #60ml refill 11 dx: acne benzoyl peroxide 10 % topical cleanser RxNorm: 422884 Apply 1 Application Topical QD apply to face, wash rinse and dry once daily (may change to QOD if drying) 08/19/19 22 022 Inactive (%covered by insurance) #60ml refill 11 dx: acne benzoyl peroxide 10 % topical cleanser RxNorm: 356229 Apply 1 Application Topical QD apply to face, wash rinse and dry once daily (may change to QOD if drying) 08/19/19 22 022 Inactive (%covered by insurance) #60ml refill 11 dx: acne Lyrica 50 mg capsule RxNorm: 914616 Take 1 Capsule(s) Oral QAM every morning Take 1 capsule by mouth once daily 08/19/19 22 022 Inactive benzoyl peroxide 10 % topical cleanser RxNorm: 917245 Apply 1 Application Topical QD apply to face, wash rinse and dry once daily (may change to QOD if drying) 08/19/19 022 Inactive (%covered by insurance) #60ml refill 11 dx: acne Lyrica 100 mg capsule RxNorm: 971822 Take 1 Capsule(s) Oral QHS every night at bedtime Take 1 capsule by mouth once daily at bedtime 08/19/19 22 022 Inactive Lyrica 100 mg capsule RxNorm: 979229 Take 1 Capsule(s) Oral QHS every night at bedtime Take 1 capsule by mouth once daily at bedtime 08/16/19 22 022 Inactive Lyrica 50 mg capsule RxNorm: 709716 Take 1 Capsule(s) Oral QAM every morning Take 1 capsule by mouth once daily 08/16/19 22 022 Inactive Levemir FlexTouch U-100 Insulin 100 unit/mL (3 mL) subcutaneous pen RxNorm: 560791 Inject 86 Unit(s) Subcutaneous BID 03/21/ 022 Inactive d/c 83units BID Lyrica 100 mg capsule RxNorm: 590066 Take 1 Capsule(s) Oral QHS every night at bedtime Take 1 capsule by mouth once daily at bedtime 07/14/19 22 022 Inactive Lyrica 50 mg capsule RxNorm: 452798 Take 1 Capsule(s) Oral QAM every morning Take 1 capsule by mouth once daily 07/14/19 22 Inactive Levemir FlexTouch U-100 Insulin 100 unit/mL (3 mL) subcutaneous pen RxNorm: 546825 Inject 83 Unit(s) Subcutaneous BID 07/08/19 22 [...] 30 mg tablet,extended release 24 hr RxNorm: 943394 Take 1 Tablet(s) Oral QD 05/05/20 No Stop Date Active hydralazine 50 mg tablet RxNorm: 088499 Take 1 Tablet(s) Oral QID 05/05/20 21 Inactive venlafaxine ER 225 mg tablet,extended release 24 hr RxNorm: 346911 Take 1 Tablet(s) Oral QD 05/05/20 21 Inactive venlafaxine ER 225 mg tablet,extended release 24 hr RxNorm: 955335 Take 1 Tablet(s) Oral QD 05/05/20 21 022 Inactive hydralazine 50 mg tablet RxNorm: 758461 Take 1 Tablet(s) Oral QID 05/05/20 21 Inactive aspirin 81 mg tablet,delayed release RxNorm: 056040 Take 1 Tablet(s) Oral QD 03/31/20 022 Inactive Zetia 10 mg tablet RxNorm: 502657 Take 1 Tablet(s) Oral QD 03/31/20 Inactive Vitamin D2 1,250 mcg (50,000 unit) capsule RxNorm: 6621297 Take 1 Capsule(s) Oral QW once a week x 12 weeks 03/31/20 Inactive Vitamin D2 1,250 mcg (50,000 unit) capsule RxNorm: 4563461 Take 1 Capsule(s) Oral QW once a week 03/31/20 Inactive Zetia 10 mg tablet RxNorm: 088690 Take 1 Tablet(s) Oral QD 03/31/20 Inactive hydralazine 25 mg tablet RxNorm: 326866 Take 1 Tablet(s) Oral QID 03/31/20 21 Inactive hydralazine 25 mg tablet RxNorm: 192493 Take 1 Tablet(s) Oral QID 03/31/20 Inactive hydralazine 10 mg tablet RxNorm: 695092 Take 1 Tablet(s) Oral QID 03/03/20 021 Inactive cephalexin 500 mg tablet RxNorm: 909875 Take 1 Tablet(s) Oral QID 02/27/20 021 Inactive cephalexin 500 mg tablet RxNorm: 183186 Take 1 Tablet(s) Oral QID 02/27/20 021 Inactive lisinopril 40 mg tablet RxNorm: 576769 Take 1 Tablet(s) Oral QD 02/11/20 023 Inactive Eliquis 5 mg tablet RxNorm: 9469561 Take 1 Tablet(s) Oral BID 01/05/20 022 Inactive Eliquis 5 mg tablet RxNorm: 7572505 Take 2 Tablet(s) Oral QD 01/01/20 021 Inactive Lyrica 50 mg capsule RxNorm: 452634 Take 1 Capsule(s) Oral QAM every morning 12/24/19 021 Inactive Lyrica 100 mg capsule RxNorm: 023303 Take 1 Capsule(s) Oral QHS every night at bedtime 12/24/19 021 Inactive clotrimazole 1 % topical cream RxNorm: 639342 Apply to right foot and toes Topical BID 12/04/19 21 023 Inactive metoprolol succinate ER 200 mg tablet,extended release 24 hr RxNorm: 396760 Take 1 Tablet(s) Oral QD 12/04/19 023 Inactive ciprofloxacin 500 mg tablet RxNorm: 875422 Take 1 Tablet(s) Oral QD 11/30/19 021 Inactive DX ofloxacin otic drops Accu-Chek Guide test strips RxNorm: USE 1 TO CHECK GLUCOSE 4 TIMES DAILY AND NEEDED 11/15/19 21 023 Inactive Blood Glucose Test strips RxNorm: Use 1 Test Strip QID at PRN 11/05/19 21 023 Inactive E11.42 lisinopril 30 mg tablet RxNorm: 407497 Take 1 Tablet(s) Oral QD 10/30/19 021 Inactive lisinopril 20 mg tablet RxNorm: 758354 Take 1 Tablet(s) Oral QD 10/23/19 021 Inactive lisinopril 20 mg tablet RxNorm: 588248 Take 1 Tablet(s) Oral QD 10/23/19 21 Inactive lisinopril 10 mg tablet RxNorm: 114212 Take 1 Tablet(s) Oral QD 10/02/19 21 021 Inactive icosapent ethyl 1 gram capsule RxNorm: 5848783 Take 2 Capsule(s) (2 gm) Oral BID with meals 09/12/19 022 Inactive Okay to dispense one 2gm tab if you have that available. icosapent ethyl 1 gram capsule RxNorm: 6276725 Take 2 Capsule(s) Oral BID 09/12/19 Inactive Okay to dispense one 2gm tab if you have that available. amlodipine 10 mg tablet RxNorm: 361213 Take 1 Tablet(s) Oral QD 09/04/19 Inactive aspirin 81 mg tablet,delayed release RxNorm: 775322 Take 1 Tablet(s) Oral QD 09/04/19 21 021 Inactive Levemir FlexTouch U-100 Insulin 100 unit/mL (3 mL) subcutaneous pen RxNorm: 142306 Inject 150 Unit(s) Subcutaneous BID 09/04/19 21 022 Inactive venlafaxine ER 150 mg tablet,extended release 24 hr RxNorm: 556712 Take 1 Tablet(s) Oral QD 09/04/19 Inactive clotrimazole-betame thasone 1 %-0.05 % topical cream RxNorm: 555402 Apply to rash on red area on left abdomen/chest Topical BID 08/10/19 21 Inactive amlodipine 5 mg tablet RxNorm: 699424 Take 1 Tablet(s) Oral QD 07/31/19 21 Inactive cephalexin 500 mg tablet RxNorm: 404884 Take 1 Tablet(s) Oral BID BID - Twice Daily 07/31/19 21 021 Inactive Start 08/01/20 pantoprazole 40 mg tablet,delayed release RxNorm: 495367 Take 1 Tablet(s) Oral QAM every morning 07/08/19 022 Inactive senna 8.6 mg tablet RxNorm: 638283 Take 1 Tablet(s) Oral QD 07/08/19 Inactive pravastatin 80 mg tablet RxNorm: 402955 Take 1 Tablet(s) Oral QHS every night at bedtime 07/08/19 Inactive carbamazepine 200 mg tablet RxNorm: 454127 Take 1 Tablet(s) Oral BID 07/08/19 022 Inactive torsemide 20 mg tablet RxNorm: 532864 Take 1 Tablet(s) Oral QD 07/08/19 023 Inactive clopidogrel 75 mg tablet RxNorm: 234299 Take 1 Tablet(s) Oral QD 07/08/19 021 Inactive Blood Glucose Test strips RxNorm: Use 1 Test Strip QID at PRN 07/08/19 Inactive E11.42 Novolog Flexpen U-100 Insulin aspart 100 unit/mL (3 mL) subcutaneous RxNorm: 1719411 Administer per sliding scale Milliliter(s) Subcutaneous TID 151-200: 10 u; 201-250: 20 u; 251-300: 30 u; 301-350: 40 u; 351-400: 50 u. 07/08/19 022 Inactive lisinopril 5 mg tablet RxNorm: 713126 Take 1 Tablet(s) Oral QD 07/08/19 Inactive Novolog Flexpen U-100 Insulin aspart 100 unit/mL (3 mL) subcutaneous RxNorm: 5964971 Inject 85 Unit(s) Subcutaneous TID 07/08/19 022 Inactive clotrimazole 1 % topical cream RxNorm: 431892 Apply to bilateral groin areas Topical BID 07/08/19 Inactive metoprolol succinate ER 200 mg tablet,extended release 24 hr RxNorm: 316496 Take 1 Tablet(s) Oral QD 07/08/19 021 Inactive Vitamin D3 25 mcg (1,000 unit) tablet RxNorm: 931871 Take 1 Tablet(s) Oral QD 07/08/19 021 Inactive isosorbide dinitrate 30 mg tablet RxNorm: 605426 Take 1 Tablet(s) Oral QD 07/08/19 Inactive Levemir FlexTouch U-100 Insulin 100 unit/mL (3 mL) subcutaneous pen RxNorm: 458340 Inject 140 Unit(s) Subcutaneous BID 07/08/19 Inactive venlafaxine 75 mg tablet RxNorm: 836672 Take 1 Tablet(s) Oral QD 07/08/19 Inactive acetaminophen 500 mg tablet RxNorm: 902115 Take 1 Tablet(s) Oral TID as needed for headache 06/18/19 21 Inactive acetaminophen 500 mg tablet RxNorm: 774658 Take 1 Tablet(s) Oral TID as needed for headache 06/18/19 Inactive Lyrica 100 mg capsule RxNorm: 747402 Take 1 Capsule(s) Oral QHS every night at bedtime 06/11/19 021 Inactive Lyrica 50 mg capsule RxNorm: 163874 Take 1 Capsule(s) Oral QAM every morning 06/10/19 021 Inactive hydrocortisone 2.5 % topical cream RxNorm: 628362 Apply to bilateral groin creases Topical BID 05/15/20 20 021 Inactive clotrimazole 1 % topical cream RxNorm: 162478 Apply to bilateral groin areas Topical BID 05/15/20 20 021 Inactive Lyrica 50 mg capsule RxNorm: 744981 Take 1 Capsule(s) Oral QAM every morning 05/14/20 20 Inactive Lyrica 100 mg capsule RxNorm: 229876 Take 1 Capsule(s) Oral QHS every night [...] Inactive Nystop 100,000 unit/gram topical powder RxNorm: 595022 Apply to abd folds, under breasts and L side of groin Topical BID x 14 days, then BID PRN 04/08/20 20 Inactive dx: yeast dermatitis Lyrica 100 mg capsule RxNorm: 946953 Take 1 Capsule(s) Oral QHS every night at bedtime 03/13/20 20 Inactive Lyrica 50 mg capsule RxNorm: 818521 Take 1 Capsule(s) Oral QAM every morning 03/13/20 20 Inactive ketoconazole 2 % shampoo RxNorm: 933084 Apply Topical two times a week with showers 03/11/20 20 Inactive cholecalciferol (vitamin D3) 50 mcg (2,000 unit) tablet RxNorm: 573989 Take 1 Tablet(s) Oral QD 03/11/20 20 Inactive Zetia 10 mg tablet RxNorm: 983505 Take 1 Tablet(s) Oral QD 03/07/20 20 021 Inactive Zetia 10 mg tablet RxNorm: 699884 Take 1 Tablet(s) Oral QD 03/07/20 20 Inactive Lyrica 50 mg capsule RxNorm: 240989 Take 1 Capsule(s) Oral QAM every morning 02/15/20 20 Inactive Lyrica 100 mg capsule RxNorm: 019693 Take 1 Capsule(s) Oral QHS every night at bedtime 02/15/20 20 Inactive Lyrica 100 mg capsule RxNorm: 814592 Take 1 Capsule(s) Oral QHS every night at bedtime 02/15/20 20 10/01/2 020 Inactive Lyrica 50 mg capsule RxNorm: 819057 Take 1 Capsule(s) Oral QAM every morning 02/15/20 20 020 Inactive venlafaxine ER 75 mg capsule,extended release 24 hr RxNorm: 062603 Take 3 Capsule(s) Oral QD 06/12/19 22 Active polyethylene glycol 3350 17 gram/dose oral powder RxNorm: 104295 Take 17=1 capful Gram(s) Oral BID as needed mix with 4-8oz of liquid 06/12/19 Active Levemir FlexTouch U-100 Insulin 100 unit/mL (3 mL) subcutaneous pen RxNorm: 887189 Inject 80 Unit(s) Subcutaneous BID 07/14/19 23 023 Inactive loperamide 2 mg capsule RxNorm: 055270 Take 1 Capsule(s) Oral QID as needed 06/12/19 22 Active Novolog Flexpen U-100 Insulin aspart 100 unit/mL (3 mL) subcutaneous RxNorm: 2632687 Insert 30 Unit(s) Subcutaneous TID with meals [...] Encounter Performer Location Location Address Codes Date (24203) DOMICIL VISIT EST ANALI w/95 modifier Diagnosis: Major depression, recurrent[ICD10: F33.9] Diagnosis: High risk medication use[ICD10: Z79.899] Diagnosis: Vitamin D deficiency[ICD10: E55.9] Sandra Clark [address] [place] [facility] [address] [address] [place] [address] CPT-4: 81588 05/01/2022 Plan of Care Planned Activity Notes Codes Status Date Referral: [facility] [address] [id number] [place] Referral Records Received 09/21/2022 Patient Education: Patient M edication Summary Completed 05/01/2022 Patient Education: Influenza Vaccine Completed 05/01/2022 Appointment: Tapan Shirley WPtel: [address] [id number] F/U 02/10/2022 Referral: [facility] WPtel: [address] [id number] [place] Referral Completed 05/28/2021 Referral: General Cardiology Referral Complet ed 01/03/2021 Referral: General Psychologist Referral Close d Instructions Comment Date Leonid is a?? Male being seen living at [facility]. Initial BPS visit 01/2020. PMHx including DMII, CAD w/ 5 stents, Depression, Seizure Disorder and CKD stage 3. He moved into [facility] in 12/2019 but after a hospitalization 05/2021 he moved to the [facility] to have closer nursing attention.??Sister Jyotsna involved in his care cell# [phone]??Guardian: Don (tapan met in person 09/01/21), now has Lexii (same group as don)Lab Schedule: Mar-/September* 10/06/2022 Vitamin D Deficiency Managed by primary care.?? Monitor due to impact on mood.?? Currently on supplemental therapy. Depression Inquire on psychotherapy status with staff, appears that referral has been placed and staff/patient to follow up via Bridge messaging.? Continue Abilify [...]
--- OUTSIDE RECORDS SUMMARY | 2022-11-09 23:32 | XMS_ITS | CCD ---
Author Name Unknown Organization Unknown Care Team Providers Care Cook Manager Name Role Phone Tapan Shirley PA-C Primary Care Provider Unavailabl e Tapan Shirley PA-C Chronic Care Management Unavaila ble Summary Purpose DataExchange Insurance Providers Payer name Policy type / Coverage type Covered republican ID Effective Begin Date Effective End Date [place] B [id number] Unknown Unknown [place] B [id number] Unknown Unknown Family history Sister Brittany Suggs [...] [facility] 09/03/[address]: 6681220 Non-Smoker / No History of Smoking 09/02/[address]: 296141110 No Alcohol Consum ption 09/02/2020 Allergies, Adverse Reactions, Alerts Substance Reaction Codes Entered Date Inactivated Date Status LISINOPRIL RxNorm: 95088 02/12/2020 No Inactive Da te Active Metformin [...] 05/01/2022 Active Coronary artery disease invo lving [place] coronary artery of [place] heart, angina presence unspecified ICD-10: I25.10 ICD-9: [...] immunization ICD-10: Z23 ICD-9: V03.89 02/10/2022 Resolved snf (current) use of insulin ICD-10: Z79.4 02/10 [...] Fill Instructions Banophen 50 mg capsule RxNorm: 5194964 Take 1 Capsule(s) Oral Q6H every 6 hours as needed 05/19/19 No Stop Date Active Novolog Flexpen U-100 Insulin aspart 100 unit/mL (3 mL) subcutaneous RxNorm: 2885856 Inject 10 Unit(s) Subcutaneous QHS every night at bedtime with nighttime snack 04/08/20 022 Inactive Novolog Flexpen U-100 Insulin aspart 100 unit/mL (3 mL) subcutaneous RxNorm: 9518690 Inject 42 Unit(s) Subcutaneous TID in addition to sliding scale 04/08/20 022 Inactive d/c 36u albuterol sulfate HFA 90 mcg/actuation aerosol inhaler RxNorm: 9762465 Take 2 Puff(s) Inhalation Q4H every four hours as needed as needed for SOB, cough, or wheezing 04/07/20 22 030 Active Banophen 50 mg capsule RxNorm: 6669600 Take 1 Capsule(s) Oral Q6H every 6 hours as needed 04/06/20 023 Inactive diphenhydramine 50 mg tablet RxNorm: 7894418 Take 1 Tablet(s) Oral Q6H every 6 hours as needed 04/06/20 22 022 Inactive diphenhydramine 50 mg tablet RxNorm: 5521999 1 Tablet(s) Oral Q6H every 6 hours as needed 04/06/20 22 022 Inactive Abilify 15 mg tablet RxNorm: 772687 1/2 Tablet(s) Oral QD 03/10/20 023 Inactive Shingrix (PF) 50 mcg/0.5 mL intramuscular suspension, kit RxNorm: 0008133 Administer 1/2 Milliliter(s) Intramuscular QD one time shingrix step 2 ( step 1 given 11/04/21) WITH needle - Nursing please administer upon arrival and once administered 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, supervisor fabrication 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, 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, and lot# so we can update [facility] 02/18/20 22 022 Inactive dispense with needle Shingrix (PF) 50 mcg/0.5 mL intramuscular suspension, kit RxNorm: 2981908 Administer 1/2 Milliliter(s) Intramuscular QD one time shingrix step 2 ( step 1 given 11/04/21) WITH needle - Nursing please administer upon arrival and once administered 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, supervisor fabrication 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, 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, and lot# so we can update [facility] 02/18/20 22 022 Inactive dispense with needle acetaminophen 500 mg tablet RxNorm: 179510 Take 1 Tablet(s) Oral TID 01/08/20 22 023 Active d/c PRN order Lyrica 150 mg capsule RxNorm: 663554 Take 1 Capsule(s) Oral QHS every night at bedtime 01/08/20 22 023 Inactive d/c 100mg dose polyethylene glycol 3350 17 gram/dose oral powder RxNorm: 778505 Take 17=1 capful Gram(s) Oral QD mix with 4-8oz of liquid 01/08/20 22 023 Active take this in addition to BID prn order Lyrica 100 mg capsule RxNorm: 513411 Take 1 Capsule(s) Oral QAM every morning 01/08/20 22 022 Inactive d/c 50mg dose Abilify 5 mg tablet RxNorm: 295836 Take 1 Tablet(s) Oral QD take 1 tab po QD #30 refill 5 dx: MDD 12/12/19 22 022 Inactive Abilify 5 mg tablet RxNorm: 541624 Take 1 Tablet(s) Oral QD take 1 tab po QD #30 refill 5 dx: MDD 12/12/19 22 022 Inactive chlorthalidone 25 mg tablet RxNorm: 450067 Take 1 Tablet(s) Oral QAM every morning 12/10/19 22 023 Active Novolog Flexpen U-100 Insulin aspart 100 unit/mL (3 mL) subcutaneous RxNorm: 5289302 Inject 42 Unit(s) Subcutaneous TID in addition to sliding scale 12/10/19 22 022 Inactive d/c 36u pregabalin 50 mg capsule RxNorm: 082051 Take 1 Capsule(s) Oral QAM every morning 11/12/19 22 022 Inactive tetanus-diphtheria toxoids-Td 2 Lf unit-2 Lf unit/0.5 mL IM suspension RxNorm: 139 Take 0.5 Miscellaneous Intramuscular 11/12/19 22 022 Inactive need tdap - nursing to administer upon arrival pregabalin 50 mg capsule RxNorm: 697418 Take 1 Capsule(s) Oral QAM every morning 10/16/19 22 022 Inactive pregabalin 50 mg capsule RxNorm: 805615 Take 1 Capsule(s) Oral QAM every morning 10/16/19 22 022 Inactive pregabalin 50 mg capsule RxNorm: 733338 1 Capsule(s) Oral QAM every morning 10/15/19 22 022 Inactive Shingrix (PF) 50 mcg/0.5 mL intramuscular suspension, kit RxNorm: 5659090 Administer 1/2 Milliliter(s) Intramuscular one time Nursing please administer upon arrival and once administered 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, supervisor fabrication department, 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 10/09/19 22 022 Inactive shingrix step 1 Shingrix (PF) 50 mcg/0.5 mL intramuscular suspension, kit RxNorm: 4261466 Administer 1/2 Milliliter(s) Intramuscular one time Nursing please administer upon arrival and once administered 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, supervisor fabrication department, 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 10/09/19 22 Inactive shingrix step 1 cholecalciferol (vitamin D3) 1,250 mcg (50,000 unit) capsule RxNorm: 431788 Take 1 Capsule(s) Oral QW once a [...] aspart 100 unit/mL (3 mL) subcutaneous RxNorm: 6405558 Inject 10 Unit(s) Subcutaneous QHS every night at bedtime with nighttime snack 10/08/19 22 Inactive Shingrix (PF) 50 mcg/0.5 mL intramuscular suspension, kit RxNorm: 8469362 ADMINISTER 2-DOSE SERIES PER CDC GUIDELINES 10/08/19 22 022 Active Shingrix (PF) 50 mcg/0.5 mL intramuscular suspension, kit RxNorm: 9935592 ADMINISTER 2-DOSE SERIES PER CDC GUIDELINES 10/08/19 22 022 Inactive Novolog Flexpen U-100 Insulin aspart 100 unit/mL (3 mL) subcutaneous RxNorm: 5032686 Inject 36 Unit(s) Subcutaneous TID in addition to sliding scale 10/08/19 22 Inactive Novofine Autocover 30 gauge x 1/3 needle RxNorm: Use 1 Miscellaneous UD as directed Use 1 needle as directed to administer insulin 5 times a day Dx:E11.42. 10/03/19 22 Inactive ok to substitute with any covered alternative pen needle benzoyl peroxide 10 % topical cleanser RxNorm: 511595 Apply 1 Application Topical QD apply to face, wash rinse and dry once daily (may change to QOD if drying) 08/19/19 22 022 Inactive (%covered by insurance) #60ml refill 11 dx: acne benzoyl peroxide 10 % topical cleanser RxNorm: 838128 Apply 1 Application Topical QD apply to face, wash rinse and dry once daily (may change to QOD if drying) 08/19/19 22 022 Inactive (%covered by insurance) #60ml refill 11 dx: acne benzoyl peroxide 10 % topical cleanser RxNorm: 232257 Apply 1 Application Topical QD apply to face, wash rinse and dry once daily (may change to QOD if drying) 08/19/19 022 Inactive (%covered by insurance) #60ml refill 11 dx: acne Lyrica 50 mg capsule RxNorm: 969956 Take 1 Capsule(s) Oral QAM every morning Take 1 capsule by mouth once daily 08/19/19 22 Inactive benzoyl peroxide 10 % topical cleanser RxNorm: 414686 Apply 1 Application Topical QD apply to face, wash rinse and dry once daily (may change to QOD if drying) 08/19/19 22 022 Inactive (%covered by insurance) #60ml refill 11 dx: acne Lyrica 100 mg capsule RxNorm: 820148 Take 1 Capsule(s) Oral QHS every night at bedtime Take 1 capsule by mouth once daily at bedtime 08/19/19 22 022 Inactive Lyrica 100 mg capsule RxNorm: 140521 Take 1 Capsule(s) Oral QHS every night at bedtime Take 1 capsule by mouth once daily at bedtime 08/16/19 22 Inactive Lyrica 50 mg capsule RxNorm: 451729 Take 1 Capsule(s) Oral QAM every morning Take 1 capsule by mouth once daily 08/16/19 22 Inactive Levemir FlexTouch U-100 Insulin 100 unit/mL (3 mL) subcutaneous pen RxNorm: 815067 Inject 86 Unit(s) Subcutaneous BID 08/05/19 22 022 Inactive d/c 83units BID Lyrica 100 mg capsule RxNorm: 487820 Take 1 Capsule(s) Oral QHS every night at bedtime Take 1 capsule by mouth once daily at bedtime 07/14/19 22 022 Inactive Lyrica 50 mg capsule RxNorm: 424021 Take 1 Capsule(s) Oral QAM every morning Take 1 capsule by mouth once daily 07/14/19 22 022 Inactive Levemir FlexTouch U-100 Insulin 100 unit/mL (3 mL) subcutaneous pen RxNorm: 466300 Inject 83 Unit(s) Subcutaneous BID 07/08/19 22 [...] 30 mg tablet,extended release 24 hr RxNorm: 812175 Take 1 Tablet(s) Oral QD 05/05/20 No Stop Date Active hydralazine 50 mg tablet RxNorm: 784845 Take 1 Tablet(s) Oral QID 05/05/20 Inactive venlafaxine ER 225 mg tablet,extended release 24 hr RxNorm: 652381 Take 1 Tablet(s) Oral QD 05/05/20 Inactive venlafaxine ER 225 mg tablet,extended release 24 hr RxNorm: 463239 Take 1 Tablet(s) Oral QD 05/05/20 Inactive hydralazine 50 mg tablet RxNorm: 857877 Take 1 Tablet(s) Oral QID 05/05/20 Inactive aspirin 81 mg tablet,delayed release RxNorm: 153434 Take 1 Tablet(s) Oral QD 03/31/20 Inactive Zetia 10 mg tablet RxNorm: 636412 Take 1 Tablet(s) Oral QD 03/31/20 Inactive Vitamin D2 1,250 mcg (50,000 unit) capsule RxNorm: 1264140 Take 1 Capsule(s) Oral QW once a week x 12 weeks 03/31/20 Inactive Vitamin D2 1,250 mcg (50,000 unit) capsule RxNorm: 7014116 Take 1 Capsule(s) Oral QW once a week 03/31/20 Inactive Zetia 10 mg tablet RxNorm: 416362 Take 1 Tablet(s) Oral QD 03/31/20 Inactive hydralazine 25 mg tablet RxNorm: 735728 Take 1 Tablet(s) Oral QID 03/31/20 Inactive hydralazine 25 mg tablet RxNorm: 169944 Take 1 Tablet(s) Oral QID 03/31/20 021 Inactive hydralazine 10 mg tablet RxNorm: 828296 Take 1 Tablet(s) Oral QID 03/03/20 021 Inactive cephalexin 500 mg tablet RxNorm: 444710 Take 1 Tablet(s) Oral QID 02/27/20 021 Inactive cephalexin 500 mg tablet RxNorm: 679181 Take 1 Tablet(s) Oral QID 02/27/20 021 Inactive lisinopril 40 mg tablet RxNorm: 465803 Take 1 Tablet(s) Oral QD 02/11/20 023 Inactive Eliquis 5 mg tablet RxNorm: 5067742 Take 1 Tablet(s) Oral BID 01/05/20 022 Inactive Eliquis 5 mg tablet RxNorm: 9107667 Take 2 Tablet(s) Oral QD 01/01/20 21 021 Inactive Lyrica 50 mg capsule RxNorm: 982968 Take 1 Capsule(s) Oral QAM every morning 12/24/19 021 Inactive Lyrica 100 mg capsule RxNorm: 895506 Take 1 Capsule(s) Oral QHS every night at bedtime 12/24/19 021 Inactive clotrimazole 1 % topical cream RxNorm: 670727 Apply to right foot and toes Topical BID 12/04/19 21 023 Inactive metoprolol succinate ER 200 mg tablet,extended release 24 hr RxNorm: 905843 Take 1 Tablet(s) Oral QD 12/04/19 21 023 Inactive ciprofloxacin 500 mg tablet RxNorm: 145511 Take 1 Tablet(s) Oral QD 11/30/19 21 021 Inactive DX ofloxacin otic drops Accu-Chek Guide test strips RxNorm: USE 1 TO CHECK GLUCOSE 4 TIMES DAILY AND NEEDED 11/15/19 21 023 Inactive Blood Glucose Test strips RxNorm: Use 1 Test Strip QID at PRN 11/05/19 21 023 Inactive E11.42 lisinopril 30 mg tablet RxNorm: 135683 Take 1 Tablet(s) Oral QD 10/30/19 Inactive lisinopril 20 mg tablet RxNorm: 812248 Take 1 Tablet(s) Oral QD 10/23/19 21 Inactive lisinopril 20 mg tablet RxNorm: 645958 Take 1 Tablet(s) Oral QD 10/23/19 21 021 Inactive lisinopril 10 mg tablet RxNorm: 671063 Take 1 Tablet(s) Oral QD 10/02/19 021 Inactive icosapent ethyl 1 gram capsule RxNorm: 5160922 Take 2 Capsule(s) (2 gm) Oral BID with meals 09/12/19 022 Inactive Okay to dispense one 2gm tab if you have that available. icosapent ethyl 1 gram capsule RxNorm: 7502773 Take 2 Capsule(s) Oral BID 09/12/19 021 Inactive Okay to dispense one 2gm tab if you have that available. amlodipine 10 mg tablet RxNorm: 372049 Take 1 Tablet(s) Oral QD 09/04/19 022 Inactive aspirin 81 mg tablet,delayed release RxNorm: 274558 Take 1 Tablet(s) Oral QD 09/04/19 21 Inactive Levemir FlexTouch U-100 Insulin 100 unit/mL (3 mL) subcutaneous pen RxNorm: 489255 Inject 150 Unit(s) Subcutaneous BID 09/04/19 022 Inactive venlafaxine ER 150 mg tablet,extended release 24 hr RxNorm: 616381 Take 1 Tablet(s) Oral QD 09/04/19 21 021 Inactive clotrimazole-betame thasone 1 %-0.05 % topical cream RxNorm: 891955 Apply to rash on red area on left abdomen/chest Topical BID 08/10/19 21 Inactive amlodipine 5 mg tablet RxNorm: 340346 Take 1 Tablet(s) Oral QD 07/31/19 21 021 Inactive cephalexin 500 mg tablet RxNorm: 062781 Take 1 Tablet(s) Oral BID BID - Twice Daily 07/31/19 21 021 Inactive Start 08/01/20 pantoprazole 40 mg tablet,delayed release RxNorm: 681268 Take 1 Tablet(s) Oral QAM every morning 07/08/19 022 Inactive senna 8.6 mg tablet RxNorm: 742687 Take 1 Tablet(s) Oral QD 07/08/19 022 Inactive pravastatin 80 mg tablet RxNorm: 094036 Take 1 Tablet(s) Oral QHS every night at bedtime 07/08/19 022 Inactive carbamazepine 200 mg tablet RxNorm: 779817 Take 1 Tablet(s) Oral BID 07/08/19 022 Inactive torsemide 20 mg tablet RxNorm: 352566 Take 1 Tablet(s) Oral QD 07/08/19 023 Inactive clopidogrel 75 mg tablet RxNorm: 983624 Take 1 Tablet(s) Oral QD 07/08/19 021 Inactive Blood Glucose Test strips RxNorm: Use 1 Test Strip QID at PRN 07/08/19 Inactive E11.42 Novolog Flexpen U-100 Insulin aspart 100 unit/mL (3 mL) subcutaneous RxNorm: 4928957 Administer per sliding scale Milliliter(s) Subcutaneous TID 151-200: 10 u; 201-250: 20 u; 251-300: 30 u; 301-350: 40 u; 351-400: 50 u. 07/08/19 022 Inactive lisinopril 5 mg tablet RxNorm: 067645 Take 1 Tablet(s) Oral QD 07/08/19 021 Inactive Novolog Flexpen U-100 Insulin aspart 100 unit/mL (3 mL) subcutaneous RxNorm: 7811950 Inject 85 Unit(s) Subcutaneous TID 07/08/19 022 Inactive clotrimazole 1 % topical cream RxNorm: 076557 Apply to bilateral groin areas Topical BID 07/08/19 022 Inactive metoprolol succinate ER 200 mg tablet,extended release 24 hr RxNorm: 995058 Take 1 Tablet(s) Oral QD 07/08/19 021 Inactive Vitamin D3 25 mcg (1,000 unit) tablet RxNorm: 291518 Take 1 Tablet(s) Oral QD 07/08/19 21 Inactive isosorbide dinitrate 30 mg tablet RxNorm: 038210 Take 1 Tablet(s) Oral QD 07/08/19 Inactive Levemir FlexTouch U-100 Insulin 100 unit/mL (3 mL) subcutaneous pen RxNorm: 794738 Inject 140 Unit(s) Subcutaneous BID 07/08/19 Inactive venlafaxine 75 mg tablet RxNorm: 126659 Take 1 Tablet(s) Oral QD 07/08/19 Inactive acetaminophen 500 mg tablet RxNorm: 420793 Take 1 Tablet(s) Oral TID as needed for headache 06/18/19 Inactive acetaminophen 500 mg tablet RxNorm: 131965 Take 1 Tablet(s) Oral TID as needed for headache 06/18/19 Inactive Lyrica 100 mg capsule RxNorm: 416975 Take 1 Capsule(s) Oral QHS every night at bedtime 06/11/19 021 Inactive Lyrica 50 mg capsule RxNorm: 538146 Take 1 Capsule(s) Oral QAM every morning 06/10/19 Inactive hydrocortisone 2.5 % topical cream RxNorm: 972626 Apply to bilateral groin creases Topical BID 05/15/20 20 021 Inactive clotrimazole 1 % topical cream RxNorm: 176415 Apply to bilateral groin areas Topical BID 05/15/20 20 021 Inactive Lyrica 50 mg capsule RxNorm: 391300 Take 1 Capsule(s) Oral QAM every morning 05/14/20 20 Inactive Lyrica 100 mg capsule RxNorm: 827783 Take 1 Capsule(s) Oral QHS every night at bedtime 05/14/20 20 Inactive Blood Glucose Monitoring kit RxNorm: Use as directed QID and PRN 04/24/20 20 Inactive Lancets,Thin 28 gauge RxNorm: Use 1 as directed QID and PRN 04/24/20 Inactive Blood Glucose Test strips RxNorm: Use [...] Inactive Nystop 100,000 unit/gram topical powder RxNorm: 977749 Apply to abd folds, under breasts and L side of groin Topical BID x 14 days, then BID PRN 04/08/20 20 Inactive dx: yeast dermatitis Lyrica 100 mg capsule RxNorm: 782793 Take 1 Capsule(s) Oral QHS every night at bedtime 03/13/20 20 Inactive Lyrica 50 mg capsule RxNorm: 749951 Take 1 Capsule(s) Oral QAM every morning 03/13/20 20 Inactive ketoconazole 2 % shampoo RxNorm: 007172 Apply Topical two times a week with showers 03/11/20 20 Inactive cholecalciferol (vitamin D3) 50 mcg (2,000 unit) tablet RxNorm: 822482 Take 1 Tablet(s) Oral QD 03/11/20 20 021 Inactive Zetia 10 mg tablet RxNorm: 277132 Take 1 Tablet(s) Oral QD 03/07/20 20 021 Inactive Zetia 10 mg tablet RxNorm: 005928 Take 1 Tablet(s) Oral QD 03/07/20 20 Inactive Lyrica 50 mg capsule RxNorm: 532693 Take 1 Capsule(s) Oral QAM every morning 02/15/20 20 Inactive Lyrica 100 mg capsule RxNorm: 167830 Take 1 Capsule(s) Oral QHS every night at bedtime 02/15/20 20 Inactive Lyrica 100 mg capsule RxNorm: 256799 Take 1 Capsule(s) Oral QHS every night at bedtime 02/15/20 20 Inactive Lyrica 50 mg capsule RxNorm: 683153 Take 1 Capsule(s) Oral QAM every morning 02/15/20 20 020 Inactive venlafaxine ER 75 mg capsule,extended release 24 hr RxNorm: 205359 Take 3 Capsule(s) Oral QD 06/12/19 22 Active polyethylene glycol 3350 17 gram/dose oral powder RxNorm: 090451 Take 17=1 capful Gram(s) Oral BID as needed mix with 4-8oz of liquid 06/12/19 Active Levemir FlexTouch U-100 Insulin 100 unit/mL (3 mL) subcutaneous pen RxNorm: 841295 Inject 80 Unit(s) Subcutaneous BID 07/14/19 23 023 Inactive loperamide 2 mg capsule RxNorm: 111477 Take 1 Capsule(s) Oral QID as needed 06/12/19 22 Active Novolog Flexpen U-100 Insulin aspart 100 unit/mL (3 mL) subcutaneous RxNorm: 8671783 Insert 30 Unit(s) Subcutaneous TID with meals [...] [facility] W[facility]: [phone], [address] [id number] [place] Referral Records Received 09/21/2022 Referral: [facility] [address]: [address] [id number] [place] Referral Completed 05/28/2021 Referral: General Cardiology Referral Complet ed 01/03/2021 Referral: General Psychologist Referral Close d Instructions Comment Date Leonid is a?? Male being seen living at [facility]. Initial [facility]PS visit 01/2020. PMHx including DMII, CAD w/ 5 stents, Depression, Seizure Disorder and CKD stage 3. He [facility] into [facility] in 12/2019 but after a hospitalization 05/2021 he moved to the [facility] to have closer nursing attention.??Sister Jyotsna involved in his care cell# [phone]??Guardian: Don (tapan met in person 09/01/21), now has Lexii (same group as don)Lab Schedule: * 10/06/2022
--- OUTSIDE RECORDS SUMMARY | 2022-11-09 23:32 | XMS_ITS | CCD ---
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 Name Role Phone Tapan Shirley PA-C Primary Care Provider Unavailabl e Tapan Shirley PA-C Chronic Care Management Unavaila ble Summary Purpose DataExchange Insurance Providers Payer name Policy type / Coverage type Covered alliance party ID Effective Begin Date Effective End Date [place] [id number] Unknown Unknown [place] [id number] Unknown Unknown Family history Sister Brittany Suggs [...] Home 09/03/[address]: 6369445 Non-Smoker / No History of Smoking 09/02/[address]: 655313407 No Alcohol Consum ption 09/02/2020 Allergies, Adverse Reactions, Alerts Substance Reaction Codes Entered Date Inactivated Date Status LISINOPRIL RxNorm: 05654 02/12/2020 No Inactive Da te Active Metformin [...] 05/01/2022 Active Coronary artery disease invo lving [place] coronary artery of [place] heart, angina presence unspecified ICD-10: I25.10 ICD-9: [...] Fill Instructions pregabalin 100 mg capsule RxNorm: 279852 1 Capsule(s) Oral QAM every morning 06/02/19 23 023 Inactive Banophen 50 mg capsule RxNorm: 8109658 Take 1 Capsule(s) Oral Q6H every 6 hours as needed 05/19/19 No Stop Date Active Novolog Flexpen U-100 Insulin aspart 100 unit/mL (3 mL) subcutaneous RxNorm: 5647403 Inject 10 Unit(s) Subcutaneous QHS every night at bedtime with nighttime snack 04/08/20 022 Inactive Novolog Flexpen U-100 Insulin aspart 100 unit/mL (3 mL) subcutaneous RxNorm: 8090741 Inject 42 Unit(s) Subcutaneous TID in addition to sliding scale 04/08/20 022 Inactive d/c 36u albuterol sulfate HFA 90 mcg/actuation aerosol inhaler RxNorm: 3002114 Take 2 Puff(s) Inhalation Q4H every four hours as needed as needed for SOB, cough, or wheezing 04/07/20 030 Active Banophen 50 mg capsule RxNorm: 8458562 Take 1 Capsule(s) Oral Q6H every 6 hours as needed 04/06/20 023 Inactive diphenhydramine 50 mg tablet RxNorm: 3671298 Take 1 Tablet(s) Oral Q6H every 6 hours as needed 04/06/20 22 022 Inactive diphenhydramine 50 mg tablet RxNorm: 7067318 1 Tablet(s) Oral Q6H every 6 hours as needed 04/06/20 022 Inactive Abilify 15 mg tablet RxNorm: 347623 1/2 Tablet(s) Oral QD 03/10/20 023 Inactive Shingrix (PF) 50 mcg/0.5 mL intramuscular suspension, kit RxNorm: 8875714 Administer 1/2 Milliliter(s) Intramuscular QD one time shingrix step 2 ( step 1 given 11/04/21) WITH needle - Nursing please administer upon arrival and once administered 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, funeral home assistant, 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, and lot# so we can update [facility]IC 02/18/20 22 022 Inactive dispense with needle Shingrix (PF) 50 mcg/0.5 mL intramuscular suspension, kit RxNorm: 5362671 Administer 1/2 Milliliter(s) Intramuscular QD one time shingrix step 2 ( step 1 given 11/04/21) WITH needle - Nursing please administer upon arrival and once administered 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, funeral home assistant, 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, and lot# so we can update [facility]IC 02/18/20 22 022 Inactive dispense with needle acetaminophen 500 mg tablet RxNorm: 038809 Take 1 Tablet(s) Oral TID 01/08/20 22 023 Active d/c PRN order Lyrica 150 mg capsule RxNorm: 325790 Take 1 Capsule(s) Oral QHS every night at bedtime 01/08/20 22 023 Inactive d/c 100mg dose polyethylene glycol 3350 17 gram/dose oral powder RxNorm: 982590 Take 17=1 capful Gram(s) Oral QD mix with 4-8oz of liquid 01/08/20 22 023 Active take this in addition to BID prn order Lyrica 100 mg capsule RxNorm: 316568 Take 1 Capsule(s) Oral QAM every morning 01/08/20 22 022 Inactive d/c 50mg dose Abilify 5 mg tablet RxNorm: 821671 Take 1 Tablet(s) Oral QD take 1 tab po QD #30 refill 5 dx: MDD 12/12/19 22 022 Inactive Abilify 5 mg tablet RxNorm: 539547 Take 1 Tablet(s) Oral QD take 1 tab po QD #30 refill 5 dx: MDD 12/12/19 22 022 Inactive chlorthalidone 25 mg tablet RxNorm: 105856 Take 1 Tablet(s) Oral QAM every morning 12/10/19 22 023 Active Novolog Flexpen U-100 Insulin aspart 100 unit/mL (3 mL) subcutaneous RxNorm: 5295248 Inject 42 Unit(s) Subcutaneous TID in addition to sliding scale 12/10/19 22 022 Inactive d/c 36u pregabalin 50 mg capsule RxNorm: 371009 Take 1 Capsule(s) Oral QAM every morning 11/12/19 22 022 Inactive tetanus-diphtheria toxoids-Td 2 Lf unit-2 Lf unit/0.5 mL IM suspension RxNorm: 139 Take 0.5 Miscellaneous Intramuscular 11/12/19 22 022 Inactive need tdap - nursing to administer upon arrival pregabalin 50 mg capsule RxNorm: 552406 Take 1 Capsule(s) Oral QAM every morning 10/16/19 22 022 Inactive pregabalin 50 mg capsule RxNorm: 790103 Take 1 Capsule(s) Oral QAM every morning 10/16/19 22 022 Inactive pregabalin 50 mg capsule RxNorm: 371271 1 Capsule(s) Oral QAM every morning 10/15/19 22 022 Inactive Shingrix (PF) 50 mcg/0.5 mL intramuscular suspension, kit RxNorm: 4817780 Administer 1/2 Milliliter(s) Intramuscular one time Nursing please administer upon arrival and once administered 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, funeral home assistant, 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 10/09/19 22 022 Inactive shingrix step 1 Shingrix (PF) 50 mcg/0.5 mL intramuscular suspension, kit RxNorm: 1754570 Administer 1/2 Milliliter(s) Intramuscular one time Nursing please administer upon arrival and once administered 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, funeral home assistant, 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 10/09/19 22 022 Inactive shingrix step 1 cholecalciferol (vitamin D3) 1,250 mcg (50,000 unit) capsule RxNorm: 782016 Take 1 Capsule(s) Oral QW once a [...] aspart 100 unit/mL (3 mL) subcutaneous RxNorm: 4768396 Inject 10 Unit(s) Subcutaneous QHS every night at bedtime with nighttime snack 10/08/19 22 Inactive Shingrix (PF) 50 mcg/0.5 mL intramuscular suspension, kit RxNorm: 8383248 ADMINISTER 2-DOSE SERIES PER CDC GUIDELINES 10/08/19 22 Active Shingrix (PF) 50 mcg/0.5 mL intramuscular suspension, kit RxNorm: 2688039 ADMINISTER 2-DOSE SERIES PER CDC GUIDELINES 10/08/19 22 Inactive Novolog Flexpen U-100 Insulin aspart 100 unit/mL (3 mL) subcutaneous RxNorm: 5666909 Inject 36 Unit(s) Subcutaneous TID in addition to sliding scale 10/08/19 22 07/25/2 022 Inactive Novofine Autocover 30 gauge x 1/3 needle RxNorm: Use 1 Miscellaneous UD as directed Use 1 needle as directed to administer insulin 5 times a day Dx:E11.42. 10/03/19 Inactive ok to substitute with any covered alternative pen needle benzoyl peroxide 10 % topical cleanser RxNorm: 221496 Apply 1 Application Topical QD apply to face, wash rinse and dry once daily (may change to QOD if drying) 08/19/19 022 Inactive (%covered by insurance) #60ml refill 11 dx: acne benzoyl peroxide 10 % topical cleanser RxNorm: 809049 Apply 1 Application Topical QD apply to face, wash rinse and dry once daily (may change to QOD if drying) 08/19/19 022 Inactive (%covered by insurance) #60ml refill 11 dx: acne benzoyl peroxide 10 % topical cleanser RxNorm: 468800 Apply 1 Application Topical QD apply to face, wash rinse and dry once daily (may change to QOD if drying) 08/19/19 22 022 Inactive (%covered by insurance) #60ml refill 11 dx: acne Lyrica 50 mg capsule RxNorm: 248798 Take 1 Capsule(s) Oral QAM every morning Take 1 capsule by mouth once daily 08/19/19 22 022 Inactive benzoyl peroxide 10 % topical cleanser RxNorm: 043928 Apply 1 Application Topical QD apply to face, wash rinse and dry once daily (may change to QOD if drying) 08/19/19 022 Inactive (%covered by insurance) #60ml refill 11 dx: acne Lyrica 100 mg capsule RxNorm: 728684 Take 1 Capsule(s) Oral QHS every night at bedtime Take 1 capsule by mouth once daily at bedtime 08/19/19 22 022 Inactive Lyrica 100 mg capsule RxNorm: 894708 Take 1 Capsule(s) Oral QHS every night at bedtime Take 1 capsule by mouth once daily at bedtime 08/16/19 22 022 Inactive Lyrica 50 mg capsule RxNorm: 578690 Take 1 Capsule(s) Oral QAM every morning Take 1 capsule by mouth once daily 08/16/19 22 022 Inactive Levemir FlexTouch U-100 Insulin 100 unit/mL (3 mL) subcutaneous pen RxNorm: 707326 Inject 86 Unit(s) Subcutaneous BID 08/05/19 22 022 Inactive d/c 83units BID Lyrica 100 mg capsule RxNorm: 771832 Take 1 Capsule(s) Oral QHS every night at bedtime Take 1 capsule by mouth once daily at bedtime 07/14/19 22 022 Inactive Lyrica 50 mg capsule RxNorm: 301737 Take 1 Capsule(s) Oral QAM every morning Take 1 capsule by mouth once daily 07/14/19 22 022 Inactive Levemir FlexTouch U-100 Insulin 100 unit/mL (3 mL) subcutaneous pen RxNorm: 427319 Inject 83 Unit(s) Subcutaneous BID 07/08/19 22 [...] 30 mg tablet,extended release 24 hr RxNorm: 867291 Take 1 Tablet(s) Oral QD 05/05/20 No Stop Date Active hydralazine 50 mg tablet RxNorm: 618629 Take 1 Tablet(s) Oral QID 05/05/20 Inactive venlafaxine ER 225 mg tablet,extended release 24 hr RxNorm: 004725 Take 1 Tablet(s) Oral QD 05/05/20 Inactive venlafaxine ER 225 mg tablet,extended release 24 hr RxNorm: 465836 Take 1 Tablet(s) Oral QD 05/05/20 022 Inactive hydralazine 50 mg tablet RxNorm: 633144 Take 1 Tablet(s) Oral QID 05/05/20 21 Inactive aspirin 81 mg tablet,delayed release RxNorm: 561016 Take 1 Tablet(s) Oral QD 03/31/20 Inactive Zetia 10 mg tablet RxNorm: 123093 Take 1 Tablet(s) Oral QD 03/31/20 Inactive Vitamin D2 1,250 mcg (50,000 unit) capsule RxNorm: 1220859 Take 1 Capsule(s) Oral QW once a week x 12 weeks 03/31/20 Inactive Vitamin D2 1,250 mcg (50,000 unit) capsule RxNorm: 1370740 Take 1 Capsule(s) Oral QW once a week 03/31/20 Inactive Zetia 10 mg tablet RxNorm: 598534 Take 1 Tablet(s) Oral QD 03/31/20 Inactive hydralazine 25 mg tablet RxNorm: 466930 Take 1 Tablet(s) Oral QID 03/31/20 021 Inactive hydralazine 25 mg tablet RxNorm: 593368 Take 1 Tablet(s) Oral QID 03/31/20 021 Inactive hydralazine 10 mg tablet RxNorm: 504746 Take 1 Tablet(s) Oral QID 03/03/20 021 Inactive cephalexin 500 mg tablet RxNorm: 131793 Take 1 Tablet(s) Oral QID 02/27/20 021 Inactive cephalexin 500 mg tablet RxNorm: 011141 Take 1 Tablet(s) Oral QID 02/27/20 021 Inactive lisinopril 40 mg tablet RxNorm: 445921 Take 1 Tablet(s) Oral QD 02/11/20 023 Inactive Eliquis 5 mg tablet RxNorm: 9899408 Take 1 Tablet(s) Oral BID 01/05/20 022 Inactive Eliquis 5 mg tablet RxNorm: 6570473 Take 2 Tablet(s) Oral QD 01/01/20 021 Inactive Lyrica 50 mg capsule RxNorm: 403044 Take 1 Capsule(s) Oral QAM every morning 12/24/19 021 Inactive Lyrica 100 mg capsule RxNorm: 251260 Take 1 Capsule(s) Oral QHS every night at bedtime 12/24/19 021 Inactive clotrimazole 1 % topical cream RxNorm: 453143 Apply to right foot and toes Topical BID 12/04/19 21 023 Inactive metoprolol succinate ER 200 mg tablet,extended release 24 hr RxNorm: 602559 Take 1 Tablet(s) Oral QD 12/04/19 023 Inactive ciprofloxacin 500 mg tablet RxNorm: 944062 Take 1 Tablet(s) Oral QD 11/30/19 21 021 Inactive DX ofloxacin otic drops Accu-Chek Guide test strips RxNorm: USE 1 TO CHECK GLUCOSE 4 TIMES DAILY AND NEEDED 11/15/19 21 023 Inactive Blood Glucose Test strips RxNorm: Use 1 Test Strip QID at PRN 11/05/19 023 Inactive E11.42 lisinopril 30 mg tablet RxNorm: 619299 Take 1 Tablet(s) Oral QD 10/30/19 021 Inactive lisinopril 20 mg tablet RxNorm: 941093 Take 1 Tablet(s) Oral QD 10/23/19 21 021 Inactive lisinopril 20 mg tablet RxNorm: 365607 Take 1 Tablet(s) Oral QD 10/23/19 21 021 Inactive lisinopril 10 mg tablet RxNorm: 614232 Take 1 Tablet(s) Oral QD 10/02/19 21 021 Inactive icosapent ethyl 1 gram capsule RxNorm: 2800596 Take 2 Capsule(s) (2 gm) Oral BID with meals 09/12/19 022 Inactive Okay to dispense one 2gm tab if you have that available. icosapent ethyl 1 gram capsule RxNorm: 2445619 Take 2 Capsule(s) Oral BID 09/12/19 21 021 Inactive Okay to dispense one 2gm tab if you have that available. amlodipine 10 mg tablet RxNorm: 876786 Take 1 Tablet(s) Oral QD 09/04/19 022 Inactive aspirin 81 mg tablet,delayed release RxNorm: 361329 Take 1 Tablet(s) Oral QD 09/04/19 021 Inactive Levemir FlexTouch U-100 Insulin 100 unit/mL (3 mL) subcutaneous pen RxNorm: 085545 Inject 150 Unit(s) Subcutaneous BID 09/04/19 21 022 Inactive venlafaxine ER 150 mg tablet,extended release 24 hr RxNorm: 365952 Take 1 Tablet(s) Oral QD 09/04/19 21 021 Inactive clotrimazole-betame thasone 1 %-0.05 % topical cream RxNorm: 113108 Apply to rash on red area on left abdomen/chest Topical BID 08/10/19 21 021 Inactive amlodipine 5 mg tablet RxNorm: 798511 Take 1 Tablet(s) Oral QD 07/31/19 21 04/19/2 021 Inactive cephalexin 500 mg tablet RxNorm: 754688 Take 1 Tablet(s) Oral BID BID - Twice Daily 07/31/19 21 Inactive Start 08/01/20 pantoprazole 40 mg tablet,delayed release RxNorm: 559096 Take 1 Tablet(s) Oral QAM every morning 07/08/19 022 Inactive senna 8.6 mg tablet RxNorm: 911091 Take 1 Tablet(s) Oral QD 07/08/19 022 Inactive pravastatin 80 mg tablet RxNorm: 475991 Take 1 Tablet(s) Oral QHS every night at bedtime 07/08/19 Inactive carbamazepine 200 mg tablet RxNorm: 145470 Take 1 Tablet(s) Oral BID 07/08/19 022 Inactive torsemide 20 mg tablet RxNorm: 905145 Take 1 Tablet(s) Oral QD 07/08/19 023 Inactive clopidogrel 75 mg tablet RxNorm: 300435 Take 1 Tablet(s) Oral QD 07/08/19 021 Inactive Blood Glucose Test strips RxNorm: Use 1 Test Strip QID at PRN 07/08/19 Inactive E11.42 Novolog Flexpen U-100 Insulin aspart 100 unit/mL (3 mL) subcutaneous RxNorm: 2075486 Administer per sliding scale Milliliter(s) Subcutaneous TID 151-200: 10 u; 201-250: 20 u; 251-300: 30 u; 301-350: 40 u; 351-400: 50 u. 07/08/19 022 Inactive lisinopril 5 mg tablet RxNorm: 074515 Take 1 Tablet(s) Oral QD 07/08/19 021 Inactive Novolog Flexpen U-100 Insulin aspart 100 unit/mL (3 mL) subcutaneous RxNorm: 0014586 Inject 85 Unit(s) Subcutaneous TID 07/08/19 022 Inactive clotrimazole 1 % topical cream RxNorm: 725052 Apply to bilateral groin areas Topical BID 07/08/19 Inactive metoprolol succinate ER 200 mg tablet,extended release 24 hr RxNorm: 358681 Take 1 Tablet(s) Oral QD 07/08/19 Inactive Vitamin D3 25 mcg (1,000 unit) tablet RxNorm: 142209 Take 1 Tablet(s) Oral QD 07/08/19 Inactive isosorbide dinitrate 30 mg tablet RxNorm: 886911 Take 1 Tablet(s) Oral QD 07/08/19 Inactive Levemir FlexTouch U-100 Insulin 100 unit/mL (3 mL) subcutaneous pen RxNorm: 082151 Inject 140 Unit(s) Subcutaneous BID 07/08/19 Inactive venlafaxine 75 mg tablet RxNorm: 514448 Take 1 Tablet(s) Oral QD 07/08/19 Inactive acetaminophen 500 mg tablet RxNorm: 553513 Take 1 Tablet(s) Oral TID as needed for headache 06/18/19 Inactive acetaminophen 500 mg tablet RxNorm: 908720 Take 1 Tablet(s) Oral TID as needed for headache 06/18/19 Inactive Lyrica 100 mg capsule RxNorm: 443129 Take 1 Capsule(s) Oral QHS every night at bedtime 06/11/19 Inactive Lyrica 50 mg capsule RxNorm: 085074 Take 1 Capsule(s) Oral QAM every morning 06/10/19 Inactive hydrocortisone 2.5 % topical cream RxNorm: 784729 Apply to bilateral groin creases Topical BID 05/15/20 20 021 Inactive clotrimazole 1 % topical cream RxNorm: 171146 Apply to bilateral groin areas Topical BID 05/15/20 20 Inactive Lyrica 50 mg capsule RxNorm: 299705 Take 1 Capsule(s) Oral QAM every morning 05/14/20 20 Inactive Lyrica 100 mg capsule RxNorm: 078800 Take 1 Capsule(s) Oral QHS every night [...] Inactive Nystop 100,000 unit/gram topical powder RxNorm: 944816 Apply to abd folds, under breasts and L side of groin Topical BID x 14 days, then BID PRN 04/08/20 20 021 Inactive dx: yeast dermatitis Lyrica 100 mg capsule RxNorm: 876895 Take 1 Capsule(s) Oral QHS every night at bedtime 03/13/20 20 Inactive Lyrica 50 mg capsule RxNorm: 986668 Take 1 Capsule(s) Oral QAM every morning 03/13/20 20 Inactive ketoconazole 2 % shampoo RxNorm: 948833 Apply Topical two times a week with showers 03/11/20 20 Inactive cholecalciferol (vitamin D3) 50 mcg (2,000 unit) tablet RxNorm: 262839 Take 1 Tablet(s) Oral QD 03/11/20 20 021 Inactive Zetia 10 mg tablet RxNorm: 152731 Take 1 Tablet(s) Oral QD 03/07/20 20 021 Inactive Zetia 10 mg tablet RxNorm: 141374 Take 1 Tablet(s) Oral QD 03/07/20 20 Inactive Lyrica 50 mg capsule RxNorm: 615038 Take 1 Capsule(s) Oral QAM every morning 02/15/20 20 Inactive Lyrica 100 mg capsule RxNorm: 814898 Take 1 Capsule(s) Oral QHS every night at bedtime 02/15/20 20 Inactive Lyrica 100 mg capsule RxNorm: 414914 Take 1 Capsule(s) Oral QHS every night at bedtime 02/15/20 20 Inactive Lyrica 50 mg capsule RxNorm: 334628 Take 1 Capsule(s) Oral QAM every morning 02/15/20 Inactive venlafaxine ER 75 mg capsule,extended release 24 hr RxNorm: 257858 Take 3 Capsule(s) Oral QD 06/12/19 22 Active polyethylene glycol 3350 17 gram/dose oral powder RxNorm: 689322 Take 17=1 capful Gram(s) Oral BID as needed mix with 4-8oz of liquid 06/12/19 22 Active Levemir FlexTouch U-100 Insulin 100 unit/mL (3 mL) subcutaneous pen RxNorm: 244559 Inject 80 Unit(s) Subcutaneous BID 07/14/19 23 023 Inactive loperamide 2 mg capsule RxNorm: 412613 Take 1 Capsule(s) Oral QID as needed 06/12/19 22 Active Novolog Flexpen U-100 Insulin aspart 100 unit/mL (3 mL) subcutaneous RxNorm: 5348200 Insert 30 Unit(s) Subcutaneous TID with meals [...] Codes Status Date Referral: [facility] WPtel: [phone] [id number] [place] Referral Records Received 09/21/2022 Referral: [facility] WPtel: [phone] [address] [id number] [place] Referral Completed 05/28/2021 Referral: General Cardiology Referral Complet ed 01/03/2021 Referral: General Psychologist Referral Close d Instructions Comment Date Leonid is a?? Male being seen living at [facility]. Initial BPS visit 01/2020. PMHx including DMII, CAD w/ 5 stents, Depression, Seizure Disorder and CKD stage 3. He moved into [facility] in 12/2019 but after a hospitalization 05/2021 he moved to the [facility] to have closer nursing attention.??Sister Jyotsna involved in his care cell# [phone]??Guardian: Don (tapan met in person 09/01/21), now has Lexii (same group as don)Lab Schedule: * 10/06/2022
--- OUTSIDE RECORDS SUMMARY | 2022-11-09 23:32 | XMS_ITS | CCD ---
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 Name Role Phone Rosalina Shirley PA-C Primary Care Provider Unavailabl e Rosalina Shirley PA-C Chronic Care Management Unavaila ble Summary Purpose DataExchange Insurance Providers Payer name Policy type / Coverage type Covered green party ID Effective Begin Date Effective End Date Medicare [place] Medicare Part B [id number] Unknown Unknown [place] Medicare Part B [id number] Unknown Unknown Family history Sister Brittany Suggs [...] Fpc 09/03/[address]: 4439170 Non-Smoker / No History of Smoking 09/02/[address]: 961358975 No Alcohol Consum ption 09/02/2020 Allergies, Adverse Reactions, Alerts Substance Reaction Codes Entered Date Inactivated Date Status LISINOPRIL RxNorm: 26096 02/12/2020 No Inactive Da te Active Metformin [...] 05/01/2022 Active Coronary artery disease invo lving [place] coronary artery of [place] heart, angina presence unspecified ICD-10: I25.10 ICD-9: [...] immunization ICD-10: Z23 ICD-9: V03.89 02/10/2022 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 ICD-10: Z79.4 02/10 [...] aspart 100 unit/mL (3 mL) subcutaneous RxNorm: 7433195 Inject 10 Unit(s) Subcutaneous QHS every night at bedtime with nighttime snack 04/08/20 022 Inactive Novolog Flexpen U-100 Insulin aspart 100 unit/mL (3 mL) subcutaneous RxNorm: 6721849 Inject 42 Unit(s) Subcutaneous TID in addition to sliding scale 04/08/20 022 Inactive d/c 36u albuterol sulfate HFA 90 mcg/actuation aerosol inhaler RxNorm: 0465550 Take 2 Puff(s) Inhalation Q4H every four hours as needed as needed for SOB, cough, or wheezing 04/07/20 22 030 Active diphenhydramine 50 mg tablet RxNorm: 3337178 Take 1 Tablet(s) Oral Q6H every 6 hours as needed 04/06/20 22 022 Inactive diphenhydramine 50 mg tablet RxNorm: 2083451 1 Tablet(s) Oral Q6H every 6 hours as needed 04/06/20 22 022 Inactive Abilify 15 mg tablet RxNorm: 943315 1/2 Tablet(s) Oral QD 03/10/20 22 023 Inactive Shingrix (PF) 50 mcg/0.5 mL intramuscular suspension, kit RxNorm: 3886252 Administer 1/2 Milliliter(s) Intramuscular QD one time shingrix step 2 ( step 1 given 11/04/21) WITH needle - Nursing please administer upon arrival and once administered 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, loftsman/woman, 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, and lot# so we can update MIIC 02/18/20 22 022 Inactive dispense with needle Shingrix (PF) 50 mcg/0.5 mL intramuscular suspension, kit RxNorm: 4503083 Administer 1/2 Milliliter(s) Intramuscular QD one time shingrix step 2 ( step 1 given 11/04/21) WITH needle - Nursing please administer upon arrival and once administered 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, loftsman/woman, 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, and lot# so we can update MIIC 02/18/20 22 022 Inactive dispense with needle acetaminophen 500 mg tablet RxNorm: 232359 Take 1 Tablet(s) Oral TID 01/08/20 023 Active d/c PRN order Lyrica 150 mg capsule RxNorm: 520231 Take 1 Capsule(s) Oral QHS every night at bedtime 01/08/20 22 023 Inactive d/c 100mg dose polyethylene glycol 3350 17 gram/dose oral powder RxNorm: 508541 Take 17=1 capful Gram(s) Oral QD mix with 4-8oz of liquid 01/08/20 22 023 Active take this in addition to BID prn order Lyrica 100 mg capsule RxNorm: 143864 Take 1 Capsule(s) Oral QAM every morning 01/08/20 22 022 Inactive d/c 50mg dose Abilify 5 mg tablet RxNorm: 586820 Take 1 Tablet(s) Oral QD take 1 tab po QD #30 refill 5 dx: MDD 12/12/19 22 022 Inactive Abilify 5 mg tablet RxNorm: 120596 Take 1 Tablet(s) Oral QD take 1 tab po QD #30 refill 5 dx: MDD 12/12/19 22 022 Inactive chlorthalidone 25 mg tablet RxNorm: 553478 Take 1 Tablet(s) Oral QAM every morning 12/10/19 22 023 Active Novolog Flexpen U-100 Insulin aspart 100 unit/mL (3 mL) subcutaneous RxNorm: 2189775 Inject 42 Unit(s) Subcutaneous TID in addition to sliding scale 12/10/19 22 022 Inactive d/c 36u pregabalin 50 mg capsule RxNorm: 693811 Take 1 Capsule(s) Oral QAM every morning 11/12/19 22 022 Inactive tetanus-diphtheria toxoids-Td 2 Lf unit-2 Lf unit/0.5 mL IM suspension RxNorm: 139 Take 0.5 Miscellaneous Intramuscular 11/12/19 22 022 Inactive need tdap - nursing to administer upon arrival pregabalin 50 mg capsule RxNorm: 075055 Take 1 Capsule(s) Oral QAM every morning 10/16/19 22 022 Inactive pregabalin 50 mg capsule RxNorm: 242064 Take 1 Capsule(s) Oral QAM every morning 10/16/19 22 022 Inactive pregabalin 50 mg capsule RxNorm: 336083 1 Capsule(s) Oral QAM every morning 10/15/19 22 022 Inactive Shingrix (PF) 50 mcg/0.5 mL intramuscular suspension, kit RxNorm: 3771047 Administer 1/2 Milliliter(s) Intramuscular one time Nursing please administer upon arrival and once administered 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, loftsman/woman, 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 10/09/19 22 022 Inactive shingrix step 1 Shingrix (PF) 50 mcg/0.5 mL intramuscular suspension, kit RxNorm: 0047195 Administer 1/2 Milliliter(s) Intramuscular one time Nursing please administer upon arrival and once administered 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, loftsman/woman, 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 10/09/19 22 Inactive shingrix step 1 cholecalciferol (vitamin D3) 1,250 mcg (50,000 unit) capsule RxNorm: 841408 Take 1 Capsule(s) Oral QW once a [...] aspart 100 unit/mL (3 mL) subcutaneous RxNorm: 2216322 Inject 10 Unit(s) Subcutaneous QHS every night at bedtime with nighttime snack 10/08/19 22 Inactive Shingrix (PF) 50 mcg/0.5 mL intramuscular suspension, kit RxNorm: 5870443 ADMINISTER 2-DOSE SERIES PER CDC GUIDELINES 10/08/19 22 Active Shingrix (PF) 50 mcg/0.5 mL intramuscular suspension, kit RxNorm: 1960779 ADMINISTER 2-DOSE SERIES PER CDC GUIDELINES 10/08/19 22 022 Inactive Novolog Flexpen U-100 Insulin aspart 100 unit/mL (3 mL) subcutaneous RxNorm: 1407487 Inject 36 Unit(s) Subcutaneous TID in addition to sliding scale 10/08/19 22 Inactive Novofine Autocover 30 gauge x 1/3 needle RxNorm: Use 1 Miscellaneous UD as directed Use 1 needle as directed to administer insulin 5 times a day Dx:E11.42. 10/03/19 22 Inactive ok to substitute with any covered alternative pen needle benzoyl peroxide 10 % topical cleanser RxNorm: 109267 Apply 1 Application Topical QD apply to face, wash rinse and dry once daily (may change to QOD if drying) 08/19/19 22 022 Inactive (%covered by insurance) #60ml refill 11 dx: acne benzoyl peroxide 10 % topical cleanser RxNorm: 319585 Apply 1 Application Topical QD apply to face, wash rinse and dry once daily (may change to QOD if drying) 08/19/19 22 022 Inactive (%covered by insurance) #60ml refill 11 dx: acne benzoyl peroxide 10 % topical cleanser RxNorm: 296740 Apply 1 Application Topical QD apply to face, wash rinse and dry once daily (may change to QOD if drying) 08/19/19 22 022 Inactive (%covered by insurance) #60ml refill 11 dx: acne Lyrica 50 mg capsule RxNorm: 824162 Take 1 Capsule(s) Oral QAM every morning Take 1 capsule by mouth once daily 08/19/19 22 022 Inactive benzoyl peroxide 10 % topical cleanser RxNorm: 307802 Apply 1 Application Topical QD apply to face, wash rinse and dry once daily (may change to QOD if drying) 08/19/19 022 Inactive (%covered by insurance) #60ml refill 11 dx: acne Lyrica 100 mg capsule RxNorm: 130898 Take 1 Capsule(s) Oral QHS every night at bedtime Take 1 capsule by mouth once daily at bedtime 08/19/19 22 Inactive Lyrica 100 mg capsule RxNorm: 132688 Take 1 Capsule(s) Oral QHS every night at bedtime Take 1 capsule by mouth once daily at bedtime 08/16/19 22 Inactive Lyrica 50 mg capsule RxNorm: 955695 Take 1 Capsule(s) Oral QAM every morning Take 1 capsule by mouth once daily 08/16/19 22 Inactive Levemir FlexTouch U-100 Insulin 100 unit/mL (3 mL) subcutaneous pen RxNorm: 084355 Inject 86 Unit(s) Subcutaneous BID 08/05/19 22 05/23/2 022 Inactive d/c 83units BID Lyrica 100 mg capsule RxNorm: 224311 Take 1 Capsule(s) Oral QHS every night at bedtime Take 1 capsule by mouth once daily at bedtime 07/14/19 22 Inactive Lyrica 50 mg capsule RxNorm: 026211 Take 1 Capsule(s) Oral QAM every morning Take 1 capsule by mouth once daily 07/14/19 22 Inactive Levemir FlexTouch U-100 Insulin 100 unit/mL (3 mL) subcutaneous pen RxNorm: 114727 Inject 83 Unit(s) Subcutaneous BID 07/08/19 22 [...] 30 mg tablet,extended release 24 hr RxNorm: 342713 Take 1 Tablet(s) Oral QD 05/05/20 No Stop Date Active hydralazine 50 mg tablet RxNorm: 962204 Take 1 Tablet(s) Oral QID 05/05/20 Inactive venlafaxine ER 225 mg tablet,extended release 24 hr RxNorm: 292465 Take 1 Tablet(s) Oral QD 05/05/20 021 Inactive venlafaxine ER 225 mg tablet,extended release 24 hr RxNorm: 738418 Take 1 Tablet(s) Oral QD 05/05/20 022 Inactive hydralazine 50 mg tablet RxNorm: 211567 Take 1 Tablet(s) Oral QID 05/05/20 Inactive aspirin 81 mg tablet,delayed release RxNorm: 623350 Take 1 Tablet(s) Oral QD 03/31/20 022 Inactive Zetia 10 mg tablet RxNorm: 835470 Take 1 Tablet(s) Oral QD 03/31/20 Inactive Vitamin D2 1,250 mcg (50,000 unit) capsule RxNorm: 7488467 Take 1 Capsule(s) Oral QW once a week x 12 weeks 03/31/20 Inactive Vitamin D2 1,250 mcg (50,000 unit) capsule RxNorm: 9555770 Take 1 Capsule(s) Oral QW once a week 03/31/20 Inactive Zetia 10 mg tablet RxNorm: 677069 Take 1 Tablet(s) Oral QD 03/31/20 Inactive hydralazine 25 mg tablet RxNorm: 943687 Take 1 Tablet(s) Oral QID 03/31/20 21 Inactive hydralazine 25 mg tablet RxNorm: 220363 Take 1 Tablet(s) Oral QID 03/31/20 Inactive hydralazine 10 mg tablet RxNorm: 925640 Take 1 Tablet(s) Oral QID 03/03/20 021 Inactive cephalexin 500 mg tablet RxNorm: 850416 Take 1 Tablet(s) Oral QID 02/27/20 021 Inactive cephalexin 500 mg tablet RxNorm: 080076 Take 1 Tablet(s) Oral QID 02/27/20 021 Inactive lisinopril 40 mg tablet RxNorm: 939939 Take 1 Tablet(s) Oral QD 02/11/20 023 Inactive Eliquis 5 mg tablet RxNorm: 4820601 Take 1 Tablet(s) Oral BID 01/05/20 21 022 Inactive Eliquis 5 mg tablet RxNorm: 7569182 Take 2 Tablet(s) Oral QD 01/01/20 021 Inactive Lyrica 50 mg capsule RxNorm: 862450 Take 1 Capsule(s) Oral QAM every morning 12/24/19 021 Inactive Lyrica 100 mg capsule RxNorm: 973039 Take 1 Capsule(s) Oral QHS every night at bedtime 12/24/19 021 Inactive clotrimazole 1 % topical cream RxNorm: 180756 Apply to right foot and toes Topical BID 12/04/19 21 023 Inactive metoprolol succinate ER 200 mg tablet,extended release 24 hr RxNorm: 291792 Take 1 Tablet(s) Oral QD 12/04/19 023 Inactive ciprofloxacin 500 mg tablet RxNorm: 535320 Take 1 Tablet(s) Oral QD 11/30/19 021 Inactive DX ofloxacin otic drops Accu-Chek Guide test strips RxNorm: USE 1 TO CHECK GLUCOSE 4 TIMES DAILY AND NEEDED 11/15/19 21 023 Inactive Blood Glucose Test strips RxNorm: Use 1 Test Strip QID at PRN 11/05/19 21 023 Inactive E11.42 lisinopril 30 mg tablet RxNorm: 841712 Take 1 Tablet(s) Oral QD 10/30/19 21 021 Inactive lisinopril 20 mg tablet RxNorm: 581399 Take 1 Tablet(s) Oral QD 10/23/19 021 Inactive lisinopril 20 mg tablet RxNorm: 112695 Take 1 Tablet(s) Oral QD 10/23/19 21 Inactive lisinopril 10 mg tablet RxNorm: 645182 Take 1 Tablet(s) Oral QD 10/02/19 021 Inactive icosapent ethyl 1 gram capsule RxNorm: 4357194 Take 2 Capsule(s) (2 gm) Oral BID with meals 09/12/19 022 Inactive Okay to dispense one 2gm tab if you have that available. icosapent ethyl 1 gram capsule RxNorm: 5814946 Take 2 Capsule(s) Oral BID 09/12/19 021 Inactive Okay to dispense one 2gm tab if you have that available. amlodipine 10 mg tablet RxNorm: 846345 Take 1 Tablet(s) Oral QD 09/04/19 Inactive aspirin 81 mg tablet,delayed release RxNorm: 545581 Take 1 Tablet(s) Oral QD 09/04/19 021 Inactive Levemir FlexTouch U-100 Insulin 100 unit/mL (3 mL) subcutaneous pen RxNorm: 369526 Inject 150 Unit(s) Subcutaneous BID 09/04/19 022 Inactive venlafaxine ER 150 mg tablet,extended release 24 hr RxNorm: 841138 Take 1 Tablet(s) Oral QD 09/04/19 021 Inactive clotrimazole-betame thasone 1 %-0.05 % topical cream RxNorm: 420935 Apply to rash on red area on left abdomen/chest Topical BID 08/10/19 21 Inactive amlodipine 5 mg tablet RxNorm: 050310 Take 1 Tablet(s) Oral QD 07/31/19 21 Inactive cephalexin 500 mg tablet RxNorm: 975264 Take 1 Tablet(s) Oral BID BID - Twice Daily 07/31/19 21 021 Inactive Start 08/01/20 pantoprazole 40 mg tablet,delayed release RxNorm: 350150 Take 1 Tablet(s) Oral QAM every morning 07/08/19 022 Inactive senna 8.6 mg tablet RxNorm: 647998 Take 1 Tablet(s) Oral QD 07/08/19 022 Inactive pravastatin 80 mg tablet RxNorm: 095312 Take 1 Tablet(s) Oral QHS every night at bedtime 07/08/19 Inactive carbamazepine 200 mg tablet RxNorm: 365313 Take 1 Tablet(s) Oral BID 07/08/19 022 Inactive torsemide 20 mg tablet RxNorm: 861739 Take 1 Tablet(s) Oral QD 07/08/19 21 023 Inactive clopidogrel 75 mg tablet RxNorm: 634529 Take 1 Tablet(s) Oral QD 07/08/19 021 Inactive Blood Glucose Test strips RxNorm: Use 1 Test Strip QID at PRN 07/08/19 Inactive E11.42 Novolog Flexpen U-100 Insulin aspart 100 unit/mL (3 mL) subcutaneous RxNorm: 4187675 Administer per sliding scale Milliliter(s) Subcutaneous TID 151-200: 10 u; 201-250: 20 u; 251-300: 30 u; 301-350: 40 u; 351-400: 50 u. 07/08/19 022 Inactive lisinopril 5 mg tablet RxNorm: 719371 Take 1 Tablet(s) Oral QD 07/08/19 Inactive Novolog Flexpen U-100 Insulin aspart 100 unit/mL (3 mL) subcutaneous RxNorm: 3664420 Inject 85 Unit(s) Subcutaneous TID 07/08/19 022 Inactive clotrimazole 1 % topical cream RxNorm: 786126 Apply to bilateral groin areas Topical BID 07/08/19 Inactive metoprolol succinate ER 200 mg tablet,extended release 24 hr RxNorm: 964325 Take 1 Tablet(s) Oral QD 07/08/19 021 Inactive Vitamin D3 25 mcg (1,000 unit) tablet RxNorm: 881797 Take 1 Tablet(s) Oral QD 07/08/19 021 Inactive isosorbide dinitrate 30 mg tablet RxNorm: 820557 Take 1 Tablet(s) Oral QD 07/08/19 21 Inactive Levemir FlexTouch U-100 Insulin 100 unit/mL (3 mL) subcutaneous pen RxNorm: 828944 Inject 140 Unit(s) Subcutaneous BID 07/08/19 Inactive venlafaxine 75 mg tablet RxNorm: 172961 Take 1 Tablet(s) Oral QD 07/08/19 Inactive acetaminophen 500 mg tablet RxNorm: 971069 Take 1 Tablet(s) Oral TID as needed for headache 06/18/19 21 Inactive acetaminophen 500 mg tablet RxNorm: 626430 Take 1 Tablet(s) Oral TID as needed for headache 06/18/19 21 Inactive Lyrica 100 mg capsule RxNorm: 354377 Take 1 Capsule(s) Oral QHS every night at bedtime 06/11/19 21 021 Inactive Lyrica 50 mg capsule RxNorm: 347671 Take 1 Capsule(s) Oral QAM every morning 06/10/19 21 021 Inactive hydrocortisone 2.5 % topical cream RxNorm: 562515 Apply to bilateral groin creases Topical BID 05/15/20 20 021 Inactive clotrimazole 1 % topical cream RxNorm: 052373 Apply to bilateral groin areas Topical BID 05/15/20 20 021 Inactive Lyrica 50 mg capsule RxNorm: 073952 Take 1 Capsule(s) Oral QAM every morning 05/14/20 20 Inactive Lyrica 100 mg capsule RxNorm: 223106 Take 1 Capsule(s) Oral QHS every night [...] Inactive Nystop 100,000 unit/gram topical powder RxNorm: 221435 Apply to abd folds, under breasts and L side of groin Topical BID x 14 days, then BID PRN 04/08/20 20 Inactive dx: yeast dermatitis Lyrica 100 mg capsule RxNorm: 830910 Take 1 Capsule(s) Oral QHS every night at bedtime 03/13/20 20 Inactive Lyrica 50 mg capsule RxNorm: 788346 Take 1 Capsule(s) Oral QAM every morning 03/13/20 20 Inactive ketoconazole 2 % shampoo RxNorm: 644782 Apply Topical two times a week with showers 03/11/20 20 Inactive cholecalciferol (vitamin D3) 50 mcg (2,000 unit) tablet RxNorm: 819511 Take 1 Tablet(s) Oral QD 03/11/20 20 021 Inactive Zetia 10 mg tablet RxNorm: 907877 Take 1 Tablet(s) Oral QD 03/07/20 20 021 Inactive Zetia 10 mg tablet RxNorm: 082302 Take 1 Tablet(s) Oral QD 03/07/20 20 Inactive Lyrica 50 mg capsule RxNorm: 048317 Take 1 Capsule(s) Oral QAM every morning 02/15/20 20 Inactive Lyrica 100 mg capsule RxNorm: 963678 Take 1 Capsule(s) Oral QHS every night at bedtime 02/15/20 20 Inactive Lyrica 100 mg capsule RxNorm: 476745 Take 1 Capsule(s) Oral QHS every night at bedtime 02/15/20 20 10/01/2 020 Inactive Lyrica 50 mg capsule RxNorm: 320573 Take 1 Capsule(s) Oral QAM every morning 02/15/20 20 020 Inactive venlafaxine ER 75 mg capsule,extended release 24 hr RxNorm: 419724 Take 3 Capsule(s) Oral QD 06/12/19 22 Active polyethylene glycol 3350 17 gram/dose oral powder RxNorm: 096310 Take 17=1 capful Gram(s) Oral BID as needed mix with 4-8oz of liquid 06/12/19 22 Active Levemir FlexTouch U-100 Insulin 100 unit/mL (3 mL) subcutaneous pen RxNorm: 230371 Inject 80 Unit(s) Subcutaneous BID 07/14/19 23 023 Inactive loperamide 2 mg capsule RxNorm: 488603 Take 1 Capsule(s) Oral QID as needed 06/12/19 22 Active Novolog Flexpen U-100 Insulin aspart 100 unit/mL (3 mL) subcutaneous RxNorm: 6737763 Insert 30 Unit(s) Subcutaneous TID with meals [...] Codes Date () DOMICIL VISIT EST ANALI modifier Diagnosis: Type 2 diabetes mellitus with diabetic polyneuropathy, with long-term current use of insulin[ICD10: E11.42] Diagnosis: Hyperlipidemia associated with type 2 diabetes mellitus[ICD10: E11.69] Diagnosis: Stage 2 chronic 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[ICD10: E11.22] Diagnosis: Hypertensive heart disease without heart failure[ICD10: I11.9] Andressa Marce [address] [address] [place] [address] CPT-4: 72808 05/05/2022 Plan of Care Planned Activity Notes Codes Status Date Referral: [facility] WPtel: [address], [address] [id number] [place] Referral Records Received 09/21/2022 Patient Education: Patient M edication Summary Completed 05/05/2022 Patient Education: Influenza Vaccine Completed 05/05/2022 Appointment: Rosalina Shirley WPtel: [address] [place] [address] [address] [id number] F/U 02/10/2022 Referral: [facility] WPtel: [address] [id number] [place] Referral Completed 05/28/2021 Referral: General Cardiology [...] attention.??Sister Jyotsna involved in his care cell# [phone]??Guardian: Don (rosalina met in person 4/18/22), now has Lexii (same group as don)Lab Schedule: Mar-/September* 10/06/2022 Diabetes blood sugars are elevated.?? Will increase night long acting and snack dosing Hypertension continuye to monitor BP and labs, encouraged follow up as scheduled . 05/05/2022
--- OUTSIDE RECORDS SUMMARY | 2022-11-09 23:33 | XMS_ITS | CCD ---
Author Name Alissa Zheng MD her Address [address] [place] [address] [address] [place] [address] Phone Organization [facility] Phone Care Team Providers Care Ice Guard Inspector Name Role Phone Rosalina Shirley PA-C Primary Care Provider Unavailabl e Rosalina Shirley PA-C Chronic Care Management Unavaila ble Summary Purpose DataExchange Insurance Providers Payer name Policy type / Coverage type Covered democrat ID Effective Begin Date Effective End Date Medicare [place] Medicare Part B [id number] Unknown Unknown Medicaid [place] Medicare Part B [id number] Unknown Unknown Family history Sister Brittany Suggs [...] Mcfp 09/03/[address]: 4190661 Non-Smoker / No History of Smoking 09/02/[address]: 395319544 No Alcohol Consum ption 09/02/2020 Allergies, Adverse Reactions, Alerts Substance Reaction Codes Entered Date Inactivated Date Status LISINOPRIL RxNorm: 20838 02/12/2020 No Inactive Da te Active Metformin [...] 05/01/2022 Active Coronary artery disease invo lving [place] coronary artery of [place] heart, angina presence unspecified ICD-10: I25.10 ICD-9: [...] immunization ICD-10: Z23 ICD-9: V03.89 02/10/2022 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 ICD-10: [...] Fill Instructions Diflucan 150 mg tablet RxNorm: 531621 Take 1 Tablet(s) Oral QD repeat on day 3 and 6 06/30/19 23 023 Inactive aripiprazole 15 mg tablet RxNorm: 463385 05/18 TAB (7.5MG) ORALLY DAILY (DX:MAJOR DEPRESSIVE DISORDER) 06/05/19 23 023 Inactive pregabalin 100 mg capsule RxNorm: 353680 1 Capsule(s) Oral QAM every morning 06/02/19 23 023 Inactive Banophen 50 mg capsule RxNorm: 5493772 Take 1 Capsule(s) Oral Q6H every 6 hours as needed 05/19/19 No Stop Date Active Novolog Flexpen U-100 Insulin aspart 100 unit/mL (3 mL) subcutaneous RxNorm: 2686666 Inject 10 Unit(s) Subcutaneous QHS every night at bedtime with nighttime snack 04/08/20 Inactive Novolog Flexpen U-100 Insulin aspart 100 unit/mL (3 mL) subcutaneous RxNorm: 1720668 Inject 42 Unit(s) Subcutaneous TID in addition to sliding scale 04/08/20 Inactive d/c 36u albuterol sulfate HFA 90 mcg/actuation aerosol inhaler RxNorm: 5324797 Take 2 Puff(s) Inhalation Q4H every four hours as needed as needed for SOB, cough, or wheezing 04/07/20 030 Active Banophen 50 mg capsule RxNorm: 7687157 Take 1 Capsule(s) Oral Q6H every 6 hours as needed 04/06/20 023 Inactive diphenhydramine 50 mg tablet RxNorm: 6785594 Take 1 Tablet(s) Oral Q6H every 6 hours as needed 04/06/20 022 Inactive diphenhydramine 50 mg tablet RxNorm: 5981727 1 Tablet(s) Oral Q6H every 6 hours as needed 04/06/20 022 Inactive Abilify 15 mg tablet RxNorm: 016635 1/2 Tablet(s) Oral QD 03/10/20 023 Inactive Shingrix (PF) 50 mcg/0.5 mL intramuscular suspension, kit RxNorm: 3838326 Administer 1/2 Milliliter(s) Intramuscular QD one time shingrix step 2 ( step 1 given 11/04/21) WITH needle - Nursing please administer upon arrival and once administered 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, audiovisual lead technician, 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, and lot# so we can update [facility]IC 02/18/20 22 022 Inactive dispense with needle Shingrix (PF) 50 mcg/0.5 mL intramuscular suspension, kit RxNorm: 3464302 Administer 1/2 Milliliter(s) Intramuscular QD one time shingrix step 2 ( step 1 given 11/04/21) WITH needle - Nursing please administer upon arrival and once administered 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, audiovisual lead technician, 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, and lot# so we can update [facility]IC 02/18/20 22 022 Inactive dispense with needle acetaminophen 500 mg tablet RxNorm: 535482 Take 1 Tablet(s) Oral TID 01/08/20 22 023 Active d/c PRN order polyethylene glycol 3350 17 gram/dose oral powder RxNorm: 809259 Take 17=1 capful Gram(s) Oral QD mix with 4-8oz of liquid 01/08/20 023 Active take this in addition to BID prn order Lyrica 100 mg capsule RxNorm: 345408 Take 1 Capsule(s) Oral QAM every morning 01/08/20 22 022 Inactive d/c 50mg dose Lyrica 150 mg capsule RxNorm: 111372 Take 1 Capsule(s) Oral QHS every night at bedtime 01/08/20 22 023 Inactive d/c 100mg dose Abilify 5 mg tablet RxNorm: 864576 Take 1 Tablet(s) Oral QD take 1 tab po QD #30 refill 5 dx: MDD 12/12/19 22 022 Inactive Abilify 5 mg tablet RxNorm: 569871 Take 1 Tablet(s) Oral QD take 1 tab po QD #30 refill 5 dx: MDD 12/12/19 22 022 Inactive chlorthalidone 25 mg tablet RxNorm: 153907 Take 1 Tablet(s) Oral QAM every morning 12/10/19 22 023 Active Novolog Flexpen U-100 Insulin aspart 100 unit/mL (3 mL) subcutaneous RxNorm: 1462566 Inject 42 Unit(s) Subcutaneous TID in addition to sliding scale 12/10/19 22 022 Inactive d/c 36u pregabalin 50 mg capsule RxNorm: 667210 Take 1 Capsule(s) Oral QAM every morning 11/12/19 22 022 Inactive tetanus-diphtheria toxoids-Td 2 Lf unit-2 Lf unit/0.5 mL IM suspension RxNorm: 139 Take 0.5 Miscellaneous Intramuscular 11/12/19 22 022 Inactive need tdap - nursing to administer upon arrival pregabalin 50 mg capsule RxNorm: 619775 Take 1 Capsule(s) Oral QAM every morning 10/16/19 22 022 Inactive pregabalin 50 mg capsule RxNorm: 355700 Take 1 Capsule(s) Oral QAM every morning 10/16/19 22 022 Inactive pregabalin 50 mg capsule RxNorm: 458438 1 Capsule(s) Oral QAM every morning 10/15/19 22 022 Inactive Shingrix (PF) 50 mcg/0.5 mL intramuscular suspension, kit RxNorm: 4631594 Administer 1/2 Milliliter(s) Intramuscular one time Nursing please administer upon arrival and once administered post a bridge message with date of administration, audiovisual lead 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 10/09/19 22 022 Inactive shingrix step 1 Shingrix (PF) 50 mcg/0.5 mL intramuscular suspension, kit RxNorm: 0895244 Administer 1/2 Milliliter(s) Intramuscular one time Nursing please administer upon arrival and once administered post a bridge message with date of administration, audiovisual lead 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 10/09/19 22 022 Inactive shingrix step 1 cholecalciferol (vitamin D3) 1,250 mcg (50,000 unit) capsule RxNorm: 021920 Take 1 Capsule(s) Oral QW once a [...] aspart 100 unit/mL (3 mL) subcutaneous RxNorm: 4612940 Inject 10 Unit(s) Subcutaneous QHS every night at bedtime with nighttime snack 10/08/19 22 022 Inactive Shingrix (PF) 50 mcg/0.5 mL intramuscular suspension, kit RxNorm: 1457729 ADMINISTER 2-DOSE SERIES PER CDC GUIDELINES 10/08/19 22 Active Shingrix (PF) 50 mcg/0.5 mL intramuscular suspension, kit RxNorm: 7084281 ADMINISTER 2-DOSE SERIES PER CDC GUIDELINES 10/08/19 22 Inactive Novolog Flexpen U-100 Insulin aspart 100 unit/mL (3 mL) subcutaneous RxNorm: 7036352 Inject 36 Unit(s) Subcutaneous TID in addition to sliding scale 10/08/19 Inactive Novofine Autocover 30 gauge x 1/3 needle RxNorm: Use 1 Miscellaneous UD as directed Use 1 needle as directed to administer insulin 5 times a day Dx:E11.42. 10/03/19 Inactive ok to substitute with any covered alternative pen needle benzoyl peroxide 10 % topical cleanser RxNorm: 313701 Apply 1 Application Topical QD apply to face, wash rinse and dry once daily (may change to QOD if drying) 08/19/19 022 Inactive (%covered by insurance) #60ml refill 11 dx: acne benzoyl peroxide 10 % topical cleanser RxNorm: 756372 Apply 1 Application Topical QD apply to face, wash rinse and dry once daily (may change to QOD if drying) 08/19/19 022 Inactive (%covered by insurance) #60ml refill 11 dx: acne benzoyl peroxide 10 % topical cleanser RxNorm: 568332 Apply 1 Application Topical QD apply to face, wash rinse and dry once daily (may change to QOD if drying) 08/19/19 022 Inactive (%covered by insurance) #60ml refill 11 dx: acne Lyrica 50 mg capsule RxNorm: 351901 Take 1 Capsule(s) Oral QAM every morning Take 1 capsule by mouth once daily 08/19/19 22 Inactive benzoyl peroxide 10 % topical cleanser RxNorm: 206460 Apply 1 Application Topical QD apply to face, wash rinse and dry once daily (may change to QOD if drying) 08/19/19 22 022 Inactive (%covered by insurance) #60ml refill 11 dx: acne Lyrica 100 mg capsule RxNorm: 157544 Take 1 Capsule(s) Oral QHS every night at bedtime Take 1 capsule by mouth once daily at bedtime 08/19/19 22 022 Inactive Lyrica 100 mg capsule RxNorm: 274138 Take 1 Capsule(s) Oral QHS every night at bedtime Take 1 capsule by mouth once daily at bedtime 08/16/19 22 022 Inactive Lyrica 50 mg capsule RxNorm: 213361 Take 1 Capsule(s) Oral QAM every morning Take 1 capsule by mouth once daily 08/16/19 22 022 Inactive Levemir FlexTouch U-100 Insulin 100 unit/mL (3 mL) subcutaneous pen RxNorm: 185326 Inject 86 Unit(s) Subcutaneous BID 08/05/19 22 022 Inactive d/c 83units BID Lyrica 100 mg capsule RxNorm: 407640 Take 1 Capsule(s) Oral QHS every night at bedtime Take 1 capsule by mouth once daily at bedtime 07/14/19 22 022 Inactive Lyrica 50 mg capsule RxNorm: 187129 Take 1 Capsule(s) Oral QAM every morning Take 1 capsule by mouth once daily 07/14/19 22 022 Inactive Levemir FlexTouch U-100 Insulin 100 unit/mL (3 mL) subcutaneous pen RxNorm: 158080 Inject 83 Unit(s) Subcutaneous BID 07/08/19 22 [...] 30 mg tablet,extended release 24 hr RxNorm: 311878 Take 1 Tablet(s) Oral QD 05/05/20 21 No Stop Date Active hydralazine 50 mg tablet RxNorm: 455785 Take 1 Tablet(s) Oral QID 05/05/20 21 022 Inactive venlafaxine ER 225 mg tablet,extended release 24 hr RxNorm: 571791 Take 1 Tablet(s) Oral QD 05/05/20 21 Inactive venlafaxine ER 225 mg tablet,extended release 24 hr RxNorm: 865517 Take 1 Tablet(s) Oral QD 05/05/20 21 022 Inactive hydralazine 50 mg tablet RxNorm: 101798 Take 1 Tablet(s) Oral QID 05/05/20 21 Inactive aspirin 81 mg tablet,delayed release RxNorm: 753528 Take 1 Tablet(s) Oral QD 03/31/20 21 022 Inactive Zetia 10 mg tablet RxNorm: 333048 Take 1 Tablet(s) Oral QD 03/31/20 21 Inactive Vitamin D2 1,250 mcg (50,000 unit) capsule RxNorm: 1099326 Take 1 Capsule(s) Oral QW once a week x 12 weeks 03/31/20 022 Inactive Vitamin D2 1,250 mcg (50,000 unit) capsule RxNorm: 3016442 Take 1 Capsule(s) Oral QW once a week 03/31/20 Inactive Zetia 10 mg tablet RxNorm: 714259 Take 1 Tablet(s) Oral QD 03/31/20 021 Inactive hydralazine 25 mg tablet RxNorm: 643341 Take 1 Tablet(s) Oral QID 03/31/20 021 Inactive hydralazine 25 mg tablet RxNorm: 145577 Take 1 Tablet(s) Oral QID 03/31/20 021 Inactive hydralazine 10 mg tablet RxNorm: 315378 Take 1 Tablet(s) Oral QID 03/03/20 021 Inactive cephalexin 500 mg tablet RxNorm: 742229 Take 1 Tablet(s) Oral QID 02/27/20 021 Inactive cephalexin 500 mg tablet RxNorm: 653754 Take 1 Tablet(s) Oral QID 02/27/20 021 Inactive lisinopril 40 mg tablet RxNorm: 879360 Take 1 Tablet(s) Oral QD 02/11/20 21 023 Inactive Eliquis 5 mg tablet RxNorm: 7557283 Take 1 Tablet(s) Oral BID 01/05/20 21 022 Inactive Eliquis 5 mg tablet RxNorm: 5646074 Take 2 Tablet(s) Oral QD 01/01/20 21 021 Inactive Lyrica 50 mg capsule RxNorm: 414470 Take 1 Capsule(s) Oral QAM every morning 12/24/19 21 021 Inactive Lyrica 100 mg capsule RxNorm: 924928 Take 1 Capsule(s) Oral QHS every night at bedtime 12/24/19 21 021 Inactive clotrimazole 1 % topical cream RxNorm: 973023 Apply to right foot and toes Topical BID 12/04/19 21 023 Inactive metoprolol succinate ER 200 mg tablet,extended release 24 hr RxNorm: 081154 Take 1 Tablet(s) Oral QD 12/04/19 21 023 Inactive ciprofloxacin 500 mg tablet RxNorm: 768628 Take 1 Tablet(s) Oral QD 11/30/19 21 021 Inactive DX ofloxacin otic drops Accu-Chek Guide test strips RxNorm: USE 1 TO CHECK GLUCOSE 4 TIMES DAILY AND NEEDED 11/15/19 21 023 Inactive Blood Glucose Test strips RxNorm: Use 1 Test Strip QID at PRN 11/05/19 21 023 Inactive E11.42 lisinopril 30 mg tablet RxNorm: 521617 Take 1 Tablet(s) Oral QD 10/30/19 021 Inactive lisinopril 20 mg tablet RxNorm: 771922 Take 1 Tablet(s) Oral QD 10/23/19 021 Inactive lisinopril 20 mg tablet RxNorm: 927067 Take 1 Tablet(s) Oral QD 10/23/19 021 Inactive lisinopril 10 mg tablet RxNorm: 288149 Take 1 Tablet(s) Oral QD 10/02/19 021 Inactive icosapent ethyl 1 gram capsule RxNorm: 1871372 Take 2 Capsule(s) (2 gm) Oral BID with meals 09/12/19 022 Inactive Okay to dispense one 2gm tab if you have that available. icosapent ethyl 1 gram capsule RxNorm: 1034052 Take 2 Capsule(s) Oral BID 09/12/19 21 021 Inactive Okay to dispense one 2gm tab if you have that available. amlodipine 10 mg tablet RxNorm: 507047 Take 1 Tablet(s) Oral QD 09/04/19 022 Inactive aspirin 81 mg tablet,delayed release RxNorm: 719415 Take 1 Tablet(s) Oral QD 09/04/19 21 021 Inactive Levemir FlexTouch U-100 Insulin 100 unit/mL (3 mL) subcutaneous pen RxNorm: 138436 Inject 150 Unit(s) Subcutaneous BID 09/04/19 022 Inactive venlafaxine ER 150 mg tablet,extended release 24 hr RxNorm: 921737 Take 1 Tablet(s) Oral QD 09/04/19 Inactive clotrimazole-betame thasone 1 %-0.05 % topical cream RxNorm: 659212 Apply to rash on red area on left abdomen/chest Topical BID 08/10/19 Inactive amlodipine 5 mg tablet RxNorm: 847391 Take 1 Tablet(s) Oral QD 07/31/19 Inactive cephalexin 500 mg tablet RxNorm: 502114 Take 1 Tablet(s) Oral BID BID - Twice Daily 07/31/19 Inactive Start 08/01/20 pantoprazole 40 mg tablet,delayed release RxNorm: 795033 Take 1 Tablet(s) Oral QAM every morning 07/08/19 022 Inactive senna 8.6 mg tablet RxNorm: 787618 Take 1 Tablet(s) Oral QD 07/08/19 022 Inactive pravastatin 80 mg tablet RxNorm: 834853 Take 1 Tablet(s) Oral QHS every night at bedtime 07/08/19 022 Inactive carbamazepine 200 mg tablet RxNorm: 423792 Take 1 Tablet(s) Oral BID 07/08/19 022 Inactive torsemide 20 mg tablet RxNorm: 074358 Take 1 Tablet(s) Oral QD 07/08/19 023 Inactive clopidogrel 75 mg tablet RxNorm: 946856 Take 1 Tablet(s) Oral QD 07/08/19 021 Inactive Blood Glucose Test strips RxNorm: Use 1 Test Strip QID at PRN 07/08/19 021 Inactive E11.42 Novolog Flexpen U-100 Insulin aspart 100 unit/mL (3 mL) subcutaneous RxNorm: 9667488 Administer per sliding scale Milliliter(s) Subcutaneous TID 151-200: 10 u; 201-250: 20 u; 251-300: 30 u; 301-350: 40 u; 351-400: 50 u. 07/08/19 21 01/26/2 022 Inactive lisinopril 5 mg tablet RxNorm: 584165 Take 1 Tablet(s) Oral QD 07/08/19 021 Inactive Novolog Flexpen U-100 Insulin aspart 100 unit/mL (3 mL) subcutaneous RxNorm: 8025627 Inject 85 Unit(s) Subcutaneous TID 07/08/19 022 Inactive clotrimazole 1 % topical cream RxNorm: 382379 Apply to bilateral groin areas Topical BID 07/08/19 022 Inactive metoprolol succinate ER 200 mg tablet,extended release 24 hr RxNorm: 327080 Take 1 Tablet(s) Oral QD 07/08/19 021 Inactive Vitamin D3 25 mcg (1,000 unit) tablet RxNorm: 117043 Take 1 Tablet(s) Oral QD 07/08/19 021 Inactive isosorbide dinitrate 30 mg tablet RxNorm: 349556 Take 1 Tablet(s) Oral QD 07/08/19 021 Inactive Levemir FlexTouch U-100 Insulin 100 unit/mL (3 mL) subcutaneous pen RxNorm: 707833 Inject 140 Unit(s) Subcutaneous BID 07/08/19 021 Inactive venlafaxine 75 mg tablet RxNorm: 605781 Take 1 Tablet(s) Oral QD 07/08/19 021 Inactive acetaminophen 500 mg tablet RxNorm: 603484 Take 1 Tablet(s) Oral TID as needed for headache 06/18/19 021 Inactive acetaminophen 500 mg tablet RxNorm: 582421 Take 1 Tablet(s) Oral TID as needed for headache 06/18/19 021 Inactive Lyrica 100 mg capsule RxNorm: 707472 Take 1 Capsule(s) Oral QHS every night at bedtime 06/11/19 Inactive Lyrica 50 mg capsule RxNorm: 090149 Take 1 Capsule(s) Oral QAM every morning 06/10/19 21 021 Inactive hydrocortisone 2.5 % topical cream RxNorm: 820332 Apply to bilateral groin creases Topical BID 05/15/20 20 021 Inactive clotrimazole 1 % topical cream RxNorm: 214937 Apply to bilateral groin areas Topical BID 05/15/20 20 Inactive Lyrica 50 mg capsule RxNorm: 274935 Take 1 Capsule(s) Oral QAM every morning 05/14/20 20 Inactive Lyrica 100 mg capsule RxNorm: 000154 Take 1 Capsule(s) Oral QHS every night [...] Inactive Nystop 100,000 unit/gram topical powder RxNorm: 762382 Apply to abd folds, under breasts and L side of groin Topical BID x 14 days, then BID PRN 04/08/20 20 021 Inactive dx: yeast dermatitis Lyrica 100 mg capsule RxNorm: 679430 Take 1 Capsule(s) Oral QHS every night at bedtime 03/13/20 20 Inactive Lyrica 50 mg capsule RxNorm: 313062 Take 1 Capsule(s) Oral QAM every morning 03/13/20 20 Inactive ketoconazole 2 % shampoo RxNorm: 384280 Apply Topical two times a week with showers 03/11/20 20 Inactive cholecalciferol (vitamin D3) 50 mcg (2,000 unit) tablet RxNorm: 285001 Take 1 Tablet(s) Oral QD 10/26/20 20 11/14/2 021 Inactive Zetia 10 mg tablet RxNorm: 392310 Take 1 Tablet(s) Oral QD 03/07/20 021 Inactive Zetia 10 mg tablet RxNorm: 537106 Take 1 Tablet(s) Oral QD 03/07/20 Inactive Lyrica 50 mg capsule RxNorm: 856444 Take 1 Capsule(s) Oral QAM every morning 02/15/20 Inactive Lyrica 100 mg capsule RxNorm: 076129 Take 1 Capsule(s) Oral QHS every night at bedtime 02/15/20 Inactive Lyrica 100 mg capsule RxNorm: 237215 Take 1 Capsule(s) Oral QHS every night at bedtime 02/15/20 Inactive Lyrica 50 mg capsule RxNorm: 306162 Take 1 Capsule(s) Oral QAM every morning 02/15/20 Inactive venlafaxine ER 75 mg capsule,extended release 24 hr RxNorm: 692686 Take 3 Capsule(s) Oral QD 06/12/19 Active polyethylene glycol 3350 17 gram/dose oral powder RxNorm: 875706 Take 17=1 capful Gram(s) Oral BID as needed mix with 4-8oz of liquid 06/12/19 Active Levemir FlexTouch U-100 Insulin 100 unit/mL (3 mL) subcutaneous pen RxNorm: 622419 Inject 80 Unit(s) Subcutaneous BID 07/14/19 23 023 Inactive loperamide 2 mg capsule RxNorm: 664274 Take 1 Capsule(s) Oral QID as needed 06/12/19 22 Active Novolog Flexpen U-100 Insulin aspart 100 unit/mL (3 mL) subcutaneous RxNorm: 5343826 Insert 30 Unit(s) Subcutaneous TID with meals [...] Encounter Performer Location Location Address Codes Date ([address]23) Home or Residence Visit Est Pt - Moderate Level, 40 mins Diagnosis: Candidiasis, intertrigo[ICD10: B37.2] Diagnosis: Type 2 diabetes mellitus with diabetic polyneuropathy, with long-term current use of insulin[ICD10: E11.42] Diagnosis: Hyperlipidemia associated with type 2 diabetes mellitus[ICD10: E11.69] Diagnosis: Stage 2 chronic 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[ICD10: E11.22] Diagnosis: Onychogryposis[ICD10: L60.2] Andressa Zheng [facility] [address] [place] [address] CPT-4: 00481 06/09/2022 Plan of Care Planned Activity Notes Codes Status Date Referral: [facility] WPtel: [address] , [address] [id number] [place] Referral Records Received 09/21/2022 Patient Education: Patient M edication Summary Completed 06/09/2022 Patient Education: Influenza Vaccine Completed 06/09/2022 Appointment: Rosalina Shirley WPtel: [address] [place], [place] [id number] F/U 02/10/2022 Referral: [facility] WPtel: [address] [facility] [address] [id number] [place] Referral Completed 05/28/2021 Referral: General Cardiology Referral Complet ed 01/03/2021 Referral: General Psychologist Referral Close d Instructions Comment Date Leonid is a?? Male being seen living at [facility]. Initial [facility] visit 01/2020. PMHx including DMII, CAD w/ 5 stents, Depression, Seizure Disorder and CKD stage 3. He moved into [facility] in 12/2019 but after a hospitalization 05/2021 [facility].??Sister Jyotnsa involved in his care cell# [phone]??Guardian: Don (rosalina met in person 09/01/21), now has Lexii (same group as don)Lab Schedule: Mar-* 10/06/2022 Candidiasis, intertrigo will add diflucan in pulse dosing x 3 Onychogryposis toenails trimmed today Diabetes BS irratic, not as high with change in PM dosing . 06/09/2022
--- OUTSIDE RECORDS SUMMARY | 2022-11-09 23:33 | XMS_ITS | CCD ---
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 Name Role Phone Tapan Shirley PA-C Primary Care Provider Unavailabl e Tapan Shirley PA-C Chronic Care Management Unavaila ble Summary Purpose DataExchange Insurance Providers Payer name Policy type / Coverage type Covered alliance party ID Effective Begin Date Effective End Date [place] [id number] Unknown Unknown [place] [id number] Unknown Unknown Family history Sister Brittany Suggs [...] [facility] 09/03/[address]: 8590426 Non-Smoker / No History of Smoking 09/02/[address]: 232657534 No Alcohol Consum ption 09/02/2020 Allergies, Adverse Reactions, Alerts Substance Reaction Codes Entered Date Inactivated Date Status LISINOPRIL RxNorm: 43179 02/12/2020 No Inactive Da te Active Metformin [...] 05/01/2022 Active Coronary artery disease invo lving elem coronary artery of elem heart, angina presence unspecified ICD-10: I25.10 ICD-9: [...] immunization ICD-10: Z23 ICD-9: V03.89 02/10/2022 Resolved intermediate (current) use of insulin ICD-10: Z79.4 02/10 [...] Fill Instructions aripiprazole 15 mg tablet RxNorm: 110541 /2 TAB (7.5MG) ORALLY DAILY (DX:MAJOR DEPRESSIVE DISORDER) 06/05/19 23 023 Inactive pregabalin 100 mg capsule RxNorm: 447137 1 Capsule(s) Oral QAM every morning 06/02/19 023 Inactive Banophen 50 mg capsule RxNorm: 3830539 Take 1 Capsule(s) Oral Q6H every 6 hours as needed 05/19/19 No Stop Date Active Novolog Flexpen U-100 Insulin aspart 100 unit/mL (3 mL) subcutaneous RxNorm: 5239408 Inject 10 Unit(s) Subcutaneous QHS every night at bedtime with nighttime snack 04/08/20 022 Inactive Novolog Flexpen U-100 Insulin aspart 100 unit/mL (3 mL) subcutaneous RxNorm: 8498867 Inject 42 Unit(s) Subcutaneous TID in addition to sliding scale 04/08/20 022 Inactive d/c 36u albuterol sulfate HFA 90 mcg/actuation aerosol inhaler RxNorm: 8519968 Take 2 Puff(s) Inhalation Q4H every four hours as needed as needed for SOB, cough, or wheezing 04/07/20 030 Active Banophen 50 mg capsule RxNorm: 9108119 Take 1 Capsule(s) Oral Q6H every 6 hours as needed 04/06/20 023 Inactive diphenhydramine 50 mg tablet RxNorm: 8036210 Take 1 Tablet(s) Oral Q6H every 6 hours as needed 04/06/20 022 Inactive diphenhydramine 50 mg tablet RxNorm: 2613969 1 Tablet(s) Oral Q6H every 6 hours as needed 04/06/20 022 Inactive Abilify 15 mg tablet RxNorm: 496333 1/2 Tablet(s) Oral QD 03/10/20 023 Inactive Shingrix (PF) 50 mcg/0.5 mL intramuscular suspension, kit RxNorm: 5699844 Administer 1/2 Milliliter(s) Intramuscular QD one time shingrix step 2 ( step 1 given 11/04/21) WITH needle - Nursing please administer upon arrival and once administered post a bridge message with date of administration, radiography technician, expiration date, and lot# so we can update MOIC 02/18/20 22 022 Inactive dispense with needle Shingrix (PF) 50 mcg/0.5 mL intramuscular suspension, kit RxNorm: 1395133 Administer 1/2 Milliliter(s) Intramuscular QD one time shingrix step 2 ( step 1 given 11/04/21) WITH needle - Nursing please administer upon arrival and once administered post a bridge message with date of administration, radiography technician, expiration date, and lot# so we can update [facility] 02/18/20 22 022 Inactive dispense with needle acetaminophen 500 mg tablet RxNorm: 067065 Take 1 Tablet(s) Oral TID 01/08/20 22 023 Active d/c PRN order Lyrica 150 mg capsule RxNorm: 062586 Take 1 Capsule(s) Oral QHS every night at bedtime 01/08/20 22 023 Inactive d/c 100mg dose polyethylene glycol 3350 17 gram/dose oral powder RxNorm: 832468 Take 17=1 capful Gram(s) Oral QD mix with 4-8oz of liquid 01/08/20 22 023 Active take this in addition to BID prn order Lyrica 100 mg capsule RxNorm: 877622 Take 1 Capsule(s) Oral QAM every morning 01/08/20 22 022 Inactive d/c 50mg dose Abilify 5 mg tablet RxNorm: 757208 Take 1 Tablet(s) Oral QD take 1 tab po QD #30 refill 5 dx: MDD 12/12/19 22 022 Inactive Abilify 5 mg tablet RxNorm: 017857 Take 1 Tablet(s) Oral QD take 1 tab po QD #30 refill 5 dx: MDD 12/12/19 22 022 Inactive chlorthalidone 25 mg tablet RxNorm: 649147 Take 1 Tablet(s) Oral QAM every morning 12/10/19 22 023 Active Novolog Flexpen U-100 Insulin aspart 100 unit/mL (3 mL) subcutaneous RxNorm: 7072402 Inject 42 Unit(s) Subcutaneous TID in addition to sliding scale 12/10/19 22 022 Inactive d/c 36u pregabalin 50 mg capsule RxNorm: 826007 Take 1 Capsule(s) Oral QAM every morning 11/12/19 22 022 Inactive tetanus-diphtheria toxoids-Td 2 Lf unit-2 Lf unit/0.5 mL IM suspension RxNorm: 139 Take 0.5 Miscellaneous Intramuscular 11/12/19 22 022 Inactive need tdap - nursing to administer upon arrival pregabalin 50 mg capsule RxNorm: 668610 Take 1 Capsule(s) Oral QAM every morning 10/16/19 22 022 Inactive pregabalin 50 mg capsule RxNorm: 869483 Take 1 Capsule(s) Oral QAM every morning 10/16/19 22 022 Inactive pregabalin 50 mg capsule RxNorm: 156913 1 Capsule(s) Oral QAM every morning 10/15/19 22 05/31/2 022 Inactive Shingrix (PF) 50 mcg/0.5 mL intramuscular suspension, kit RxNorm: 0599691 Administer 1/2 Milliliter(s) Intramuscular one time Nursing please administer upon arrival and once administered post a bridge message with date of administration, radiography 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 10/09/19 22 Inactive shingrix step 1 Shingrix (PF) 50 mcg/0.5 mL intramuscular suspension, kit RxNorm: 8075594 Administer 1/2 Milliliter(s) Intramuscular one time Nursing please administer upon arrival and once administered post a bridge message with date of administration, radiography 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 10/09/19 22 Inactive shingrix step 1 cholecalciferol (vitamin D3) 1,250 mcg (50,000 unit) capsule RxNorm: 439428 Take 1 Capsule(s) Oral QW once a [...] aspart 100 unit/mL (3 mL) subcutaneous RxNorm: 3177164 Inject 10 Unit(s) Subcutaneous QHS every night at bedtime with nighttime snack 10/08/19 22 Inactive Shingrix (PF) 50 mcg/0.5 mL intramuscular suspension, kit RxNorm: 0081277 ADMINISTER 2-DOSE SERIES PER CDC GUIDELINES 10/08/19 22 Active Shingrix (PF) 50 mcg/0.5 mL intramuscular suspension, kit RxNorm: 7418735 ADMINISTER 2-DOSE SERIES PER CDC GUIDELINES 10/08/19 22 Inactive Novolog Flexpen U-100 Insulin aspart 100 unit/mL (3 mL) subcutaneous RxNorm: 6224864 Inject 36 Unit(s) Subcutaneous TID in addition to sliding scale 10/08/19 22 Inactive Novofine Autocover 30 gauge x 1/3 needle RxNorm: Use 1 Miscellaneous UD as directed Use 1 needle as directed to administer insulin 5 times a day Dx:E11.42. 10/03/19 22 Inactive ok to substitute with any covered alternative pen needle benzoyl peroxide 10 % topical cleanser RxNorm: 942060 Apply 1 Application Topical QD apply to face, wash rinse and dry once daily (may change to QOD if drying) 08/19/19 022 Inactive (%covered by insurance) #60ml refill 11 dx: acne benzoyl peroxide 10 % topical cleanser RxNorm: 663237 Apply 1 Application Topical QD apply to face, wash rinse and dry once daily (may change to QOD if drying) 08/19/19 022 Inactive (%covered by insurance) #60ml refill 11 dx: acne benzoyl peroxide 10 % topical cleanser RxNorm: 531274 Apply 1 Application Topical QD apply to face, wash rinse and dry once daily (may change to QOD if drying) 08/19/19 022 Inactive (%covered by insurance) #60ml refill 11 dx: acne Lyrica 50 mg capsule RxNorm: 289436 Take 1 Capsule(s) Oral QAM every morning Take 1 capsule by mouth once daily 08/19/19 22 022 Inactive benzoyl peroxide 10 % topical cleanser RxNorm: 708795 Apply 1 Application Topical QD apply to face, wash rinse and dry once daily (may change to QOD if drying) 08/19/19 22 022 Inactive (%covered by insurance) #60ml refill 11 dx: acne Lyrica 100 mg capsule RxNorm: 629032 Take 1 Capsule(s) Oral QHS every night at bedtime Take 1 capsule by mouth once daily at bedtime 08/19/19 22 022 Inactive Lyrica 100 mg capsule RxNorm: 746897 Take 1 Capsule(s) Oral QHS every night at bedtime Take 1 capsule by mouth once daily at bedtime 08/16/19 22 022 Inactive Lyrica 50 mg capsule RxNorm: 711874 Take 1 Capsule(s) Oral QAM every morning Take 1 capsule by mouth once daily 08/16/19 22 022 Inactive Levemir FlexTouch U-100 Insulin 100 unit/mL (3 mL) subcutaneous pen RxNorm: 607473 Inject 86 Unit(s) Subcutaneous BID 08/05/19 22 022 Inactive d/c 83units BID Lyrica 100 mg capsule RxNorm: 840446 Take 1 Capsule(s) Oral QHS every night at bedtime Take 1 capsule by mouth once daily at bedtime 07/14/19 22 022 Inactive Lyrica 50 mg capsule RxNorm: 900088 Take 1 Capsule(s) Oral QAM every morning Take 1 capsule by mouth once daily 07/14/19 22 022 Inactive Levemir FlexTouch U-100 Insulin 100 unit/mL (3 mL) subcutaneous pen RxNorm: 789564 Inject 83 Unit(s) Subcutaneous BID 07/08/19 22 [...] 30 mg tablet,extended release 24 hr RxNorm: 699468 Take 1 Tablet(s) Oral QD 05/05/20 No Stop Date Active hydralazine 50 mg tablet RxNorm: 725076 Take 1 Tablet(s) Oral QID 05/05/20 21 Inactive venlafaxine ER 225 mg tablet,extended release 24 hr RxNorm: 043804 Take 1 Tablet(s) Oral QD 05/05/20 21 Inactive venlafaxine ER 225 mg tablet,extended release 24 hr RxNorm: 231790 Take 1 Tablet(s) Oral QD 05/05/20 21 022 Inactive hydralazine 50 mg tablet RxNorm: 929853 Take 1 Tablet(s) Oral QID 05/05/20 21 Inactive aspirin 81 mg tablet,delayed release RxNorm: 611957 Take 1 Tablet(s) Oral QD 03/31/20 Inactive Zetia 10 mg tablet RxNorm: 989381 Take 1 Tablet(s) Oral QD 03/31/20 Inactive Vitamin D2 1,250 mcg (50,000 unit) capsule RxNorm: 9245275 Take 1 Capsule(s) Oral QW once a week x 12 weeks 03/31/20 Inactive Vitamin D2 1,250 mcg (50,000 unit) capsule RxNorm: 8820505 Take 1 Capsule(s) Oral QW once a week 03/31/20 Inactive Zetia 10 mg tablet RxNorm: 172824 Take 1 Tablet(s) Oral QD 03/31/20 021 Inactive hydralazine 25 mg tablet RxNorm: 269099 Take 1 Tablet(s) Oral QID 03/31/20 021 Inactive hydralazine 25 mg tablet RxNorm: 455224 Take 1 Tablet(s) Oral QID 03/31/20 021 Inactive hydralazine 10 mg tablet RxNorm: 424125 Take 1 Tablet(s) Oral QID 03/03/20 021 Inactive cephalexin 500 mg tablet RxNorm: 238091 Take 1 Tablet(s) Oral QID 02/27/20 021 Inactive cephalexin 500 mg tablet RxNorm: 127534 Take 1 Tablet(s) Oral QID 02/27/20 021 Inactive lisinopril 40 mg tablet RxNorm: 453105 Take 1 Tablet(s) Oral QD 02/11/20 023 Inactive Eliquis 5 mg tablet RxNorm: 0663800 Take 1 Tablet(s) Oral BID 01/05/20 022 Inactive Eliquis 5 mg tablet RxNorm: 0221422 Take 2 Tablet(s) Oral QD 01/01/20 21 021 Inactive Lyrica 50 mg capsule RxNorm: 399114 Take 1 Capsule(s) Oral QAM every morning 12/24/19 021 Inactive Lyrica 100 mg capsule RxNorm: 548208 Take 1 Capsule(s) Oral QHS every night at bedtime 12/24/19 021 Inactive clotrimazole 1 % topical cream RxNorm: 498833 Apply to right foot and toes Topical BID 12/04/19 21 023 Inactive metoprolol succinate ER 200 mg tablet,extended release 24 hr RxNorm: 570993 Take 1 Tablet(s) Oral QD 12/04/19 21 023 Inactive ciprofloxacin 500 mg tablet RxNorm: 190502 Take 1 Tablet(s) Oral QD 11/30/19 21 021 Inactive DX ofloxacin otic drops Accu-Chek Guide test strips RxNorm: USE 1 TO CHECK GLUCOSE 4 TIMES DAILY AND NEEDED 11/15/19 21 023 Inactive Blood Glucose Test strips RxNorm: Use 1 Test Strip QID at PRN 11/05/19 21 023 Inactive E11.42 lisinopril 30 mg tablet RxNorm: 307228 Take 1 Tablet(s) Oral QD 10/30/19 021 Inactive lisinopril 20 mg tablet RxNorm: 129975 Take 1 Tablet(s) Oral QD 10/23/19 021 Inactive lisinopril 20 mg tablet RxNorm: 173443 Take 1 Tablet(s) Oral QD 10/23/19 21 021 Inactive lisinopril 10 mg tablet RxNorm: 226989 Take 1 Tablet(s) Oral QD 10/02/19 021 Inactive icosapent ethyl 1 gram capsule RxNorm: 5448006 Take 2 Capsule(s) (2 gm) Oral BID with meals 09/12/19 022 Inactive Okay to dispense one 2gm tab if you have that available. icosapent ethyl 1 gram capsule RxNorm: 9245400 Take 2 Capsule(s) Oral BID 09/12/19 021 Inactive Okay to dispense one 2gm tab if you have that available. amlodipine 10 mg tablet RxNorm: 971693 Take 1 Tablet(s) Oral QD 09/04/19 022 Inactive aspirin 81 mg tablet,delayed release RxNorm: 978408 Take 1 Tablet(s) Oral QD 09/04/19 21 021 Inactive Levemir FlexTouch U-100 Insulin 100 unit/mL (3 mL) subcutaneous pen RxNorm: 292725 Inject 150 Unit(s) Subcutaneous BID 09/04/19 21 022 Inactive venlafaxine ER 150 mg tablet,extended release 24 hr RxNorm: 377419 Take 1 Tablet(s) Oral QD 09/04/19 21 021 Inactive clotrimazole-betame thasone 1 %-0.05 % topical cream RxNorm: 171132 Apply to rash on red area on left abdomen/chest Topical BID 08/10/19 21 021 Inactive amlodipine 5 mg tablet RxNorm: 919352 Take 1 Tablet(s) Oral QD 07/31/19 21 Inactive cephalexin 500 mg tablet RxNorm: 867811 Take 1 Tablet(s) Oral BID BID - Twice Daily 07/31/19 021 Inactive Start 08/01/20 pantoprazole 40 mg tablet,delayed release RxNorm: 407204 Take 1 Tablet(s) Oral QAM every morning 07/08/19 022 Inactive senna 8.6 mg tablet RxNorm: 935261 Take 1 Tablet(s) Oral QD 07/08/19 022 Inactive pravastatin 80 mg tablet RxNorm: 048172 Take 1 Tablet(s) Oral QHS every night at bedtime 07/08/19 022 Inactive carbamazepine 200 mg tablet RxNorm: 096236 Take 1 Tablet(s) Oral BID 07/08/19 022 Inactive torsemide 20 mg tablet RxNorm: 680725 Take 1 Tablet(s) Oral QD 07/08/19 023 Inactive clopidogrel 75 mg tablet RxNorm: 335200 Take 1 Tablet(s) Oral QD 07/08/19 021 Inactive Blood Glucose Test strips RxNorm: Use 1 Test Strip QID at PRN 07/08/19 021 Inactive E11.42 Novolog Flexpen U-100 Insulin aspart 100 unit/mL (3 mL) subcutaneous RxNorm: 2876490 Administer per sliding scale Milliliter(s) Subcutaneous TID 151-200: 10 u; 201-250: 20 u; 251-300: 30 u; 301-350: 40 u; 351-400: 50 u. 07/08/19 022 Inactive lisinopril 5 mg tablet RxNorm: 949218 Take 1 Tablet(s) Oral QD 07/08/19 021 Inactive Novolog Flexpen U-100 Insulin aspart 100 unit/mL (3 mL) subcutaneous RxNorm: 7216296 Inject 85 Unit(s) Subcutaneous TID 07/08/19 21 022 Inactive clotrimazole 1 % topical cream RxNorm: 600814 Apply to bilateral groin areas Topical BID 07/08/19 21 022 Inactive metoprolol succinate ER 200 mg tablet,extended release 24 hr RxNorm: 279677 Take 1 Tablet(s) Oral QD 07/08/19 021 Inactive Vitamin D3 25 mcg (1,000 unit) tablet RxNorm: 358070 Take 1 Tablet(s) Oral QD 07/08/19 021 Inactive isosorbide dinitrate 30 mg tablet RxNorm: 109366 Take 1 Tablet(s) Oral QD 07/08/19 021 Inactive Levemir FlexTouch U-100 Insulin 100 unit/mL (3 mL) subcutaneous pen RxNorm: 070462 Inject 140 Unit(s) Subcutaneous BID 07/08/19 021 Inactive venlafaxine 75 mg tablet RxNorm: 167974 Take 1 Tablet(s) Oral QD 07/08/19 021 Inactive acetaminophen 500 mg tablet RxNorm: 629526 Take 1 Tablet(s) Oral TID as needed for headache 06/18/19 021 Inactive acetaminophen 500 mg tablet RxNorm: 380656 Take 1 Tablet(s) Oral TID as needed for headache 06/18/19 021 Inactive Lyrica 100 mg capsule RxNorm: 621478 Take 1 Capsule(s) Oral QHS every night at bedtime 06/11/19 021 Inactive Lyrica 50 mg capsule RxNorm: 904940 Take 1 Capsule(s) Oral QAM every morning 06/10/19 021 Inactive hydrocortisone 2.5 % topical cream RxNorm: 033730 Apply to bilateral groin creases Topical BID 05/15/20 20 021 Inactive clotrimazole 1 % topical cream RxNorm: 777485 Apply to bilateral groin areas Topical BID 05/15/20 20 021 Inactive Lyrica 50 mg capsule RxNorm: 964070 Take 1 Capsule(s) Oral QAM every morning 05/14/20 20 020 Inactive Lyrica 100 mg capsule RxNorm: 401192 Take 1 Capsule(s) Oral QHS every night [...] Inactive Nystop 100,000 unit/gram topical powder RxNorm: 129990 Apply to abd folds, under breasts and L side of groin Topical BID x 14 days, then BID PRN 04/08/20 20 021 Inactive dx: yeast dermatitis Lyrica 100 mg capsule RxNorm: 288850 Take 1 Capsule(s) Oral QHS every night at bedtime 03/13/20 20 Inactive Lyrica 50 mg capsule RxNorm: 574570 Take 1 Capsule(s) Oral QAM every morning 03/13/20 20 Inactive ketoconazole 2 % shampoo RxNorm: 986632 Apply Topical two times a week with showers 03/11/20 20 Inactive cholecalciferol (vitamin D3) 50 mcg (2,000 unit) tablet RxNorm: 091774 Take 1 Tablet(s) Oral QD 03/11/20 20 Inactive Zetia 10 mg tablet RxNorm: 811642 Take 1 Tablet(s) Oral QD 03/07/20 20 021 Inactive Zetia 10 mg tablet RxNorm: 073649 Take 1 Tablet(s) Oral QD 03/07/20 20 Inactive Lyrica 50 mg capsule RxNorm: 373019 Take 1 Capsule(s) Oral QAM every morning 02/15/20 20 Inactive Lyrica 100 mg capsule RxNorm: 734805 Take 1 Capsule(s) Oral QHS every night at bedtime 02/15/20 20 Inactive Lyrica 100 mg capsule RxNorm: 929995 Take 1 Capsule(s) Oral QHS every night at bedtime 02/15/20 20 Inactive Lyrica 50 mg capsule RxNorm: 650280 Take 1 Capsule(s) Oral QAM every morning 02/15/20 20 Inactive venlafaxine ER 75 mg capsule,extended release 24 hr RxNorm: 621811 Take 3 Capsule(s) Oral QD 06/12/19 22 Active polyethylene glycol 3350 17 gram/dose oral powder RxNorm: 859244 Take 17=1 capful Gram(s) Oral BID as needed mix with 4-8oz of liquid 06/12/19 22 Active Levemir FlexTouch U-100 Insulin 100 unit/mL (3 mL) subcutaneous pen RxNorm: 769123 Inject 80 Unit(s) Subcutaneous BID 07/14/19 23 023 Inactive loperamide 2 mg capsule RxNorm: 943390 Take 1 Capsule(s) Oral QID as needed 06/12/19 22 Active Novolog Flexpen U-100 Insulin aspart 100 unit/mL (3 mL) subcutaneous RxNorm: 9294566 Insert 30 Unit(s) Subcutaneous TID with meals [...] Date Referral: [facility] WPtel: [address] [id number] [place] Referral Records Received 09/21/2022 Referral: [facility] WPtel: [address] [id number] [place] Referral Completed 05/28/2021 Referral: General Cardiology [...] attention.??Sister Jyotsna involved in his care cell# [phone]??Guardian: Don (tapan met in person 09/01/21), now has Lexii (same group as don)Lab Schedule: * 10/06/2022
--- OUTSIDE RECORDS SUMMARY | 2022-11-09 23:34 | XMS_ITS | CCD ---
Author Name Unknown Organization Unknown Care Team Providers Care Adjunct Faculty Instructor Name Role Phone Tapan Shirley PA-C Primary Care Provider Unavailabl e Tapan Shirley PA-C Chronic Care Management Unavaila ble Summary Purpose DataExchange Insurance Providers Payer name Policy type / Coverage type Covered alliance party ID Effective Begin Date Effective End Date Medicare [place] Medicare Part B [id number] Unknown Unknown Medicaid [place] Medicare Part B [id number] Unknown Unknown Family history Sister Brittany Suggs [...] Snf 09/03/[address]: 3382840 Non-Smoker / No History of Smoking 09/02/[address]: 543815056 No Alcohol Consum ption 09/02/2020 Allergies, Adverse Reactions, Alerts Substance Reaction Codes Entered Date Inactivated Date Status LISINOPRIL RxNorm: 35122 02/12/2020 No Inactive Da te Active Metformin [...] 250.60 06/09/2022 Active Hypertensive heart disease w [facility] heart failure ICD-10: I11.9 ICD-9: 402.90 05/05/2022 Active High risk medication use ICD-10: Z79.899 ICD-9: V58.69 05/01/2022 Active Major depression, recurrent ICD-10: F33. 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 manager (current) use of insulin ICD-10: Z79.4 [...] Fill Instructions Diflucan 150 mg tablet RxNorm: 410206 Take 1 Tablet(s) Oral QD repeat on day 3 and 6 06/30/19 23 023 Inactive Lyrica 150 mg capsule RxNorm: 267713 Take 1 Capsule(s) Oral QHS every night at bedtime 06/18/19 23 023 Inactive d/c 100mg dose aripiprazole 15 mg tablet RxNorm: 382977 05/18 TAB (7.5MG) ORALLY DAILY (DX:MAJOR DEPRESSIVE DISORDER) 06/05/19 23 023 Inactive pregabalin 100 mg capsule RxNorm: 641647 1 Capsule(s) Oral QAM every morning 06/02/19 23 023 Inactive Banophen 50 mg capsule RxNorm: 5395935 Take 1 Capsule(s) Oral Q6H every 6 hours as needed 05/19/19 23 No Stop Date Active Novolog Flexpen U-100 Insulin aspart 100 unit/mL (3 mL) subcutaneous RxNorm: 8559703 Inject 10 Unit(s) Subcutaneous QHS every night at bedtime with nighttime snack 04/08/20 Inactive Novolog Flexpen U-100 Insulin aspart 100 unit/mL (3 mL) subcutaneous RxNorm: 8766451 Inject 42 Unit(s) Subcutaneous TID in addition to sliding scale 04/08/20 Inactive d/c 36u albuterol sulfate HFA 90 mcg/actuation aerosol inhaler RxNorm: 8210431 Take 2 Puff(s) Inhalation Q4H every four hours as needed as needed for SOB, cough, or wheezing 04/07/20 030 Active Banophen 50 mg capsule RxNorm: 0318001 Take 1 Capsule(s) Oral Q6H every 6 hours as needed 04/06/20 023 Inactive diphenhydramine 50 mg tablet RxNorm: 1151048 Take 1 Tablet(s) Oral Q6H every 6 hours as needed 04/06/20 022 Inactive diphenhydramine 50 mg tablet RxNorm: 6260586 1 Tablet(s) Oral Q6H every 6 hours as needed 04/06/20 022 Inactive Abilify 15 mg tablet RxNorm: 790574 1/2 Tablet(s) Oral QD 03/10/20 023 Inactive Shingrix (PF) 50 mcg/0.5 mL intramuscular suspension, kit RxNorm: 1081695 Administer 1/2 Milliliter(s) Intramuscular QD one time shingrix step 2 ( step 1 given 11/04/21) WITH needle - Nursing please administer upon arrival and once administered post a bridge message with date of administration, production operations engineer, expiration date, and lot# so we can update [facility]IC 02/18/20 22 022 Inactive dispense with needle Shingrix (PF) 50 mcg/0.5 mL intramuscular suspension, kit RxNorm: 7576020 Administer 1/2 Milliliter(s) Intramuscular QD one time shingrix step 2 ( step 1 given 11/04/21) WITH needle - Nursing please administer upon arrival and once administered post a bridge message with date of administration, production operations engineer, expiration date, and lot# so we can update [facility]IC 02/18/20 22 022 Inactive dispense with needle acetaminophen 500 mg tablet RxNorm: 887343 Take 1 Tablet(s) Oral TID 01/08/20 22 023 Active d/c PRN order polyethylene glycol 3350 17 gram/dose oral powder RxNorm: 125479 Take 17=1 capful Gram(s) Oral QD mix with 4-8oz of liquid 01/08/20 22 023 Active take this in addition to BID prn order Lyrica 100 mg capsule RxNorm: 367149 Take 1 Capsule(s) Oral QAM every morning 01/08/20 22 022 Inactive d/c 50mg dose Lyrica 150 mg capsule RxNorm: 986951 Take 1 Capsule(s) Oral QHS every night at bedtime 01/08/20 22 023 Inactive d/c 100mg dose Abilify 5 mg tablet RxNorm: 750088 Take 1 Tablet(s) Oral QD take 1 tab po QD #30 refill 5 dx: MDD 12/12/19 22 022 Inactive Abilify 5 mg tablet RxNorm: 724555 Take 1 Tablet(s) Oral QD take 1 tab po QD #30 refill 5 dx: MDD 12/12/19 22 022 Inactive chlorthalidone 25 mg tablet RxNorm: 421894 Take 1 Tablet(s) Oral QAM every morning 12/10/19 22 023 Active Novolog Flexpen U-100 Insulin aspart 100 unit/mL (3 mL) subcutaneous RxNorm: 7052296 Inject 42 Unit(s) Subcutaneous TID in addition to sliding scale 12/10/19 22 022 Inactive d/c 36u pregabalin 50 mg capsule RxNorm: 115622 Take 1 Capsule(s) Oral QAM every morning 11/12/19 22 022 Inactive tetanus-diphtheria toxoids-Td 2 Lf unit-2 Lf unit/0.5 mL IM suspension RxNorm: 139 Take 0.5 Miscellaneous Intramuscular 11/12/19 22 022 Inactive need tdap - nursing to administer upon arrival pregabalin 50 mg capsule RxNorm: 350457 Take 1 Capsule(s) Oral QAM every morning 10/16/19 22 022 Inactive pregabalin 50 mg capsule RxNorm: 615662 Take 1 Capsule(s) Oral QAM every morning 10/16/19 22 022 Inactive pregabalin 50 mg capsule RxNorm: 963076 1 Capsule(s) Oral QAM every morning 10/15/19 22 022 Inactive Shingrix (PF) 50 mcg/0.5 mL intramuscular suspension, kit RxNorm: 9094175 Administer 1/2 Milliliter(s) Intramuscular one time Nursing please administer upon arrival and once administered post a bridge message with date of administration, production operations engineer, 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 10/09/19 22 022 Inactive shingrix step 1 Shingrix (PF) 50 mcg/0.5 mL intramuscular suspension, kit RxNorm: 8053202 Administer 1/2 Milliliter(s) Intramuscular one time Nursing please administer upon arrival and once administered post a bridge message with date of administration, production operations engineer, 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 10/09/19 22 022 Inactive shingrix step 1 cholecalciferol (vitamin D3) 1,250 mcg (50,000 unit) capsule RxNorm: 950564 Take 1 Capsule(s) Oral QW once a [...] aspart 100 unit/mL (3 mL) subcutaneous RxNorm: 1520528 Inject 10 Unit(s) Subcutaneous QHS every night at bedtime with nighttime snack 10/08/19 22 022 Inactive Shingrix (PF) 50 mcg/0.5 mL intramuscular suspension, kit RxNorm: 8507045 ADMINISTER 2-DOSE SERIES PER CDC GUIDELINES 10/08/19 22 Active Shingrix (PF) 50 mcg/0.5 mL intramuscular suspension, kit RxNorm: 3263523 ADMINISTER 2-DOSE SERIES PER CDC GUIDELINES 10/08/19 22 Inactive Novolog Flexpen U-100 Insulin aspart 100 unit/mL (3 mL) subcutaneous RxNorm: 3474181 Inject 36 Unit(s) Subcutaneous TID in addition to sliding scale 10/08/19 22 Inactive Novofine Autocover 30 gauge x 1/3 needle RxNorm: Use 1 Miscellaneous UD as directed Use 1 needle as directed to administer insulin 5 times a day Dx:E11.42. 10/03/19 Inactive ok to substitute with any covered alternative pen needle benzoyl peroxide 10 % topical cleanser RxNorm: 551299 Apply 1 Application Topical QD apply to face, wash rinse and dry once daily (may change to QOD if drying) 08/19/19 Inactive (%covered by insurance) #60ml refill 11 dx: acne benzoyl peroxide 10 % topical cleanser RxNorm: 613988 Apply 1 Application Topical QD apply to face, wash rinse and dry once daily (may change to QOD if drying) 08/19/19 Inactive (%covered by insurance) #60ml refill 11 dx: acne benzoyl peroxide 10 % topical cleanser RxNorm: 945011 Apply 1 Application Topical QD apply to face, wash rinse and dry once daily (may change to QOD if drying) 08/19/19 022 Inactive (%covered by insurance) #60ml refill 11 dx: acne Lyrica 50 mg capsule RxNorm: 466925 Take 1 Capsule(s) Oral QAM every morning Take 1 capsule by mouth once daily 08/19/19 22 Inactive benzoyl peroxide 10 % topical cleanser RxNorm: 391595 Apply 1 Application Topical QD apply to face, wash rinse and dry once daily (may change to QOD if drying) 08/19/19 22 022 Inactive (%covered by insurance) #60ml refill 11 dx: acne Lyrica 100 mg capsule RxNorm: 674670 Take 1 Capsule(s) Oral QHS every night at bedtime Take 1 capsule by mouth once daily at bedtime 08/19/19 22 022 Inactive Lyrica 100 mg capsule RxNorm: 380724 Take 1 Capsule(s) Oral QHS every night at bedtime Take 1 capsule by mouth once daily at bedtime 08/16/19 22 022 Inactive Lyrica 50 mg capsule RxNorm: 482285 Take 1 Capsule(s) Oral QAM every morning Take 1 capsule by mouth once daily 08/16/19 22 022 Inactive Levemir FlexTouch U-100 Insulin 100 unit/mL (3 mL) subcutaneous pen RxNorm: 574346 Inject 86 Unit(s) Subcutaneous BID 08/05/19 22 022 Inactive d/c 83units BID Lyrica 100 mg capsule RxNorm: 289035 Take 1 Capsule(s) Oral QHS every night at bedtime Take 1 capsule by mouth once daily at bedtime 07/14/19 22 022 Inactive Lyrica 50 mg capsule RxNorm: 979149 Take 1 Capsule(s) Oral QAM every morning Take 1 capsule by mouth once daily 07/14/19 22 022 Inactive Levemir FlexTouch U-100 Insulin 100 unit/mL (3 mL) subcutaneous pen RxNorm: 409158 Inject 83 Unit(s) Subcutaneous BID 07/08/19 22 [...] 30 mg tablet,extended release 24 hr RxNorm: 104604 Take 1 Tablet(s) Oral QD 05/05/20 No Stop Date Active hydralazine 50 mg tablet RxNorm: 174073 Take 1 Tablet(s) Oral QID 05/05/20 21 022 Inactive venlafaxine ER 225 mg tablet,extended release 24 hr RxNorm: 898282 Take 1 Tablet(s) Oral QD 05/05/20 21 021 Inactive venlafaxine ER 225 mg tablet,extended release 24 hr RxNorm: 003413 Take 1 Tablet(s) Oral QD 05/05/20 21 022 Inactive hydralazine 50 mg tablet RxNorm: 356435 Take 1 Tablet(s) Oral QID 05/05/20 21 021 Inactive aspirin 81 mg tablet,delayed release RxNorm: 191138 Take 1 Tablet(s) Oral QD 03/31/20 21 022 Inactive Zetia 10 mg tablet RxNorm: 487076 Take 1 Tablet(s) Oral QD 03/31/20 21 022 Inactive Vitamin D2 1,250 mcg (50,000 unit) capsule RxNorm: 2724645 Take 1 Capsule(s) Oral QW once a week x 12 weeks 03/31/20 022 Inactive Vitamin D2 1,250 mcg (50,000 unit) capsule RxNorm: 6645868 Take 1 Capsule(s) Oral QW once a week 03/31/20 Inactive Zetia 10 mg tablet RxNorm: 433581 Take 1 Tablet(s) Oral QD 03/31/20 021 Inactive hydralazine 25 mg tablet RxNorm: 058198 Take 1 Tablet(s) Oral QID 03/31/20 021 Inactive hydralazine 25 mg tablet RxNorm: 029546 Take 1 Tablet(s) Oral QID 03/31/20 Inactive hydralazine 10 mg tablet RxNorm: 678443 Take 1 Tablet(s) Oral QID 03/03/20 021 Inactive cephalexin 500 mg tablet RxNorm: 709902 Take 1 Tablet(s) Oral QID 02/27/20 021 Inactive cephalexin 500 mg tablet RxNorm: 600281 Take 1 Tablet(s) Oral QID 02/27/20 021 Inactive lisinopril 40 mg tablet RxNorm: 286324 Take 1 Tablet(s) Oral QD 02/11/20 21 023 Inactive Eliquis 5 mg tablet RxNorm: 7848489 Take 1 Tablet(s) Oral BID 01/05/20 21 022 Inactive Eliquis 5 mg tablet RxNorm: 7298980 Take 2 Tablet(s) Oral QD 01/01/20 21 021 Inactive Lyrica 50 mg capsule RxNorm: 313021 Take 1 Capsule(s) Oral QAM every morning 12/24/19 21 021 Inactive Lyrica 100 mg capsule RxNorm: 635077 Take 1 Capsule(s) Oral QHS every night at bedtime 12/24/19 21 021 Inactive clotrimazole 1 % topical cream RxNorm: 217967 Apply to right foot and toes Topical BID 12/04/19 21 06/25/2 023 Inactive metoprolol succinate ER 200 mg tablet,extended release 24 hr RxNorm: 976047 Take 1 Tablet(s) Oral QD 12/04/19 21 023 Inactive ciprofloxacin 500 mg tablet RxNorm: 873844 Take 1 Tablet(s) Oral QD 11/30/19 21 021 Inactive DX ofloxacin otic drops Accu-Chek Guide test strips RxNorm: USE 1 TO CHECK GLUCOSE 4 TIMES DAILY AND NEEDED 11/15/19 21 023 Inactive Blood Glucose Test strips RxNorm: Use 1 Test Strip QID at PRN 11/05/19 21 023 Inactive E11.42 lisinopril 30 mg tablet RxNorm: 701463 Take 1 Tablet(s) Oral QD 10/30/19 021 Inactive lisinopril 20 mg tablet RxNorm: 231257 Take 1 Tablet(s) Oral QD 10/23/19 021 Inactive lisinopril 20 mg tablet RxNorm: 033700 Take 1 Tablet(s) Oral QD 10/23/19 21 021 Inactive lisinopril 10 mg tablet RxNorm: 004519 Take 1 Tablet(s) Oral QD 10/02/19 021 Inactive icosapent ethyl 1 gram capsule RxNorm: 6074726 Take 2 Capsule(s) (2 gm) Oral BID with meals 09/12/19 022 Inactive Okay to dispense one 2gm tab if you have that available. icosapent ethyl 1 gram capsule RxNorm: 5320663 Take 2 Capsule(s) Oral BID 09/12/19 21 021 Inactive Okay to dispense one 2gm tab if you have that available. amlodipine 10 mg tablet RxNorm: 355061 Take 1 Tablet(s) Oral QD 09/04/19 21 022 Inactive aspirin 81 mg tablet,delayed release RxNorm: 889687 Take 1 Tablet(s) Oral QD 09/04/19 21 021 Inactive Levemir FlexTouch U-100 Insulin 100 unit/mL (3 mL) subcutaneous pen RxNorm: 791261 Inject 150 Unit(s) Subcutaneous BID 04/ 022 Inactive venlafaxine ER 150 mg tablet,extended release 24 hr RxNorm: 586091 Take 1 Tablet(s) Oral QD 09/04/19 Inactive clotrimazole-betame thasone 1 %-0.05 % topical cream RxNorm: 963178 Apply to rash on red area on left abdomen/chest Topical BID 08/10/19 21 Inactive amlodipine 5 mg tablet RxNorm: 908055 Take 1 Tablet(s) Oral QD 07/31/19 Inactive cephalexin 500 mg tablet RxNorm: 772915 Take 1 Tablet(s) Oral BID BID - Twice Daily 07/31/19 Inactive Start 08/01/20 pantoprazole 40 mg tablet,delayed release RxNorm: 125476 Take 1 Tablet(s) Oral QAM every morning 07/08/19 022 Inactive senna 8.6 mg tablet RxNorm: 937712 Take 1 Tablet(s) Oral QD 07/08/19 022 Inactive pravastatin 80 mg tablet RxNorm: 160109 Take 1 Tablet(s) Oral QHS every night at bedtime 07/08/19 022 Inactive carbamazepine 200 mg tablet RxNorm: 797812 Take 1 Tablet(s) Oral BID 07/08/19 022 Inactive torsemide 20 mg tablet RxNorm: 711115 Take 1 Tablet(s) Oral QD 07/08/19 21 023 Inactive clopidogrel 75 mg tablet RxNorm: 845319 Take 1 Tablet(s) Oral QD 07/08/19 021 Inactive Blood Glucose Test strips RxNorm: Use 1 Test Strip QID at PRN 07/08/19 21 Inactive E11.42 Novolog Flexpen U-100 Insulin aspart 100 unit/mL (3 mL) subcutaneous RxNorm: 3522794 Administer per sliding scale Milliliter(s) Subcutaneous TID 151-200: 10 u; 201-250: 20 u; 251-300: 30 u; 301-350: 40 u; 351-400: 50 u. 07/08/19 21 022 Inactive lisinopril 5 mg tablet RxNorm: 006244 Take 1 Tablet(s) Oral QD 07/08/19 021 Inactive Novolog Flexpen U-100 Insulin aspart 100 unit/mL (3 mL) subcutaneous RxNorm: 1478975 Inject 85 Unit(s) Subcutaneous TID 07/08/19 022 Inactive clotrimazole 1 % topical cream RxNorm: 133965 Apply to bilateral groin areas Topical BID 07/08/19 022 Inactive metoprolol succinate ER 200 mg tablet,extended release 24 hr RxNorm: 967383 Take 1 Tablet(s) Oral QD 07/08/19 021 Inactive Vitamin D3 25 mcg (1,000 unit) tablet RxNorm: 587132 Take 1 Tablet(s) Oral QD 07/08/19 021 Inactive isosorbide dinitrate 30 mg tablet RxNorm: 011140 Take 1 Tablet(s) Oral QD 07/08/19 021 Inactive Levemir FlexTouch U-100 Insulin 100 unit/mL (3 mL) subcutaneous pen RxNorm: 795678 Inject 140 Unit(s) Subcutaneous BID 07/08/19 021 Inactive venlafaxine 75 mg tablet RxNorm: 196286 Take 1 Tablet(s) Oral QD 07/08/19 021 Inactive acetaminophen 500 mg tablet RxNorm: 251301 Take 1 Tablet(s) Oral TID as needed for headache 06/18/19 021 Inactive acetaminophen 500 mg tablet RxNorm: 260123 Take 1 Tablet(s) Oral TID as needed for headache 06/18/19 021 Inactive Lyrica 100 mg capsule RxNorm: 598330 Take 1 Capsule(s) Oral QHS every night at bedtime 06/11/19 021 Inactive Lyrica 50 mg capsule RxNorm: 947987 Take 1 Capsule(s) Oral QAM every morning 06/10/19 021 Inactive hydrocortisone 2.5 % topical cream RxNorm: 394260 Apply to bilateral groin creases Topical BID 05/15/20 021 Inactive clotrimazole 1 % topical cream RxNorm: 947396 Apply to bilateral groin areas Topical BID 05/15/20 20 Inactive Lyrica 50 mg capsule RxNorm: 460731 Take 1 Capsule(s) Oral QAM every morning 05/14/20 20 Inactive Lyrica 100 mg capsule RxNorm: 637966 Take 1 Capsule(s) Oral QHS every night [...] Inactive Nystop 100,000 unit/gram topical powder RxNorm: 735562 Apply to abd folds, under breasts and L side of groin Topical BID x 14 days, then BID PRN 04/08/20 20 021 Inactive dx: yeast dermatitis Lyrica 100 mg capsule RxNorm: 669839 Take 1 Capsule(s) Oral QHS every night at bedtime 03/13/20 20 Inactive Lyrica 50 mg capsule RxNorm: 331738 Take 1 Capsule(s) Oral QAM every morning 03/13/20 20 Inactive ketoconazole 2 % shampoo RxNorm: 746152 Apply Topical two times a week with showers 03/11/20 20 Inactive cholecalciferol (vitamin D3) 50 mcg (2,000 unit) tablet RxNorm: 800120 Take 1 Tablet(s) Oral QD 03/11/20 20 021 Inactive Zetia 10 mg tablet RxNorm: 995275 Take 1 Tablet(s) Oral QD 03/07/20 20 Inactive Zetia 10 mg tablet RxNorm: 824604 Take 1 Tablet(s) Oral QD 03/07/20 20 Inactive Lyrica 50 mg capsule RxNorm: 808946 Take 1 Capsule(s) Oral QAM every morning 02/15/20 20 Inactive Lyrica 100 mg capsule RxNorm: 575426 Take 1 Capsule(s) Oral QHS every night at bedtime 02/15/20 Inactive Lyrica 100 mg capsule RxNorm: 660321 Take 1 Capsule(s) Oral QHS every night at bedtime 02/15/20 20 Inactive Lyrica 50 mg capsule RxNorm: 887480 Take 1 Capsule(s) Oral QAM every morning 02/15/20 Inactive venlafaxine ER 75 mg capsule,extended release 24 hr RxNorm: 095160 Take 3 Capsule(s) Oral QD 06/12/19 Active polyethylene glycol 3350 17 gram/dose oral powder RxNorm: 393919 Take 17=1 capful Gram(s) Oral BID as needed mix with 4-8oz of liquid 06/12/19 Active Levemir FlexTouch U-100 Insulin 100 unit/mL (3 mL) subcutaneous pen RxNorm: 229743 Inject 80 Unit(s) Subcutaneous BID 07/14/19 23 023 Inactive loperamide 2 mg capsule RxNorm: 943181 Take 1 Capsule(s) Oral QID as needed 06/12/19 Active Novolog Flexpen U-100 Insulin aspart 100 unit/mL (3 mL) subcutaneous RxNorm: 9933076 Insert 30 Unit(s) Subcutaneous TID with meals [...] [facility] WPtel: [phone], [address] [id number] [place] Referral Records Received 09/21/2022 Referral: [facility] WPtel: [address] [id number] [place] Referral Completed 05/28/2021 Referral: General Cardiology Referral Complet ed 01/03/2021 Referral: General Psychologist Referral Close d Instructions Comment Date Leonid is a?? Male being seen living at [facility]. Initial [facility] visit 01/2020. PMHx including DMII, CAD w/ 5 stents, Depression, Seizure Disorder and CKD stage 3. He moved into [facility] in 12/2019 but after a hospitalization 05/2021 he moved to the [facility] to have closer nursing attention.??Sister Jyotsna involved in his care cell# [phone]??Guardian: Don (tapan met in person 09/01/21), now has Lexii (same group as don)Lab Schedule: * 10/06/2022
--- OUTSIDE RECORDS SUMMARY | 2022-11-09 23:35 | XMS_ITS | CCD ---
Author Name Unknown Organization Unknown Care Team Providers Care Administrative Assistant Coordinator Name Role Phone Tapan Shirley PA-C Primary Care Provider Unavailabl e Tapan Shirley PA-C Chronic Care Management Unavaila ble Summary Purpose DataExchange Insurance Providers Payer name Policy type / Coverage type Covered alliance party ID Effective Begin Date Effective End Date [place] Part B [id number] Unknown Unknown [place] B [id number] Unknown Unknown Family history Sister Brittany Suggs Diagnosis Age At Onset No Family Disease Entered N/A Runs in the family Diagnosis Age At Onset No Known Diseases N/A Sister Blanka Mcduffie Diagnosis Age At Onset No Family Disease Entered N/A Social History Social History Element Codes Description Effec tive Dates Marital status Unknown Single 10/07/2021 Living arrangements Unknown Halfway 09/03/[address]: 5178057 Non-Smoker / No History of Smoking 09/02/[address]: 114298620 No Alcohol Consum ption 09/02/2020 Allergies, Adverse Reactions, Alerts Substance Reaction Codes Entered Date Inactivated Date Status LISINOPRIL RxNorm: 68150 02/12/2020 No Inactive Da te Active Metformin [...] 250.60 06/09/2022 Active Hypertensive heart disease w [facility] heart failure ICD-10: I11.9 ICD-9: 402.90 05/05/2022 Active Vitamin D deficiency ICD-10: E55.9 ICD-9: 268.9 05/01/2022 Active Coronary artery disease invo lving [place] coronary artery of [place] heart, angina presence unspecified ICD-10: I25.10 [...] Fill Instructions Diflucan 150 mg tablet RxNorm: 432956 Take 1 Tablet(s) Oral QD repeat on day 3 and 6 06/30/19 023 Inactive Accu-Chek Guide test strips RxNorm: Use 1 Test Strip QID Use 1 test strip to monitor blood glucose 4 times daily and as needed. Dx:E11.42. 06/23/19 023 Inactive ok to substitute with any covered alternative test strip dextromethorphan-gu aifenesin 10 mg-100 mg/5 mL oral liquid RxNorm: 097840 Take 10 Milliliter(s) Oral every 4 hours as needed for cough 06/19/19 23 023 Inactive dextromethorphan-gu aifenesin 10 mg-100 mg/5 mL oral liquid RxNorm: 360335 Take 10 Milliliter(s) Oral every 4 hours as needed for cough 06/19/19 023 Inactive Lyrica 150 mg capsule RxNorm: 508622 Take 1 Capsule(s) Oral QHS every night at bedtime 06/18/19 023 Inactive d/c 100mg dose aripiprazole 15 mg tablet RxNorm: 895664 1/2 TAB (7.5MG) ORALLY DAILY (DX:MAJOR DEPRESSIVE DISORDER) 06/05/19 023 Inactive pregabalin 100 mg capsule RxNorm: 356613 1 Capsule(s) Oral QAM every morning 06/02/19 023 Inactive Banophen 50 mg capsule RxNorm: 5430385 Take 1 Capsule(s) Oral Q6H every 6 hours as needed 05/19/19 No Stop Date Active Novolog Flexpen U-100 Insulin aspart 100 unit/mL (3 mL) subcutaneous RxNorm: 6420793 Inject 10 Unit(s) Subcutaneous QHS every night at bedtime with nighttime snack 04/08/20 022 Inactive Novolog Flexpen U-100 Insulin aspart 100 unit/mL (3 mL) subcutaneous RxNorm: 5193515 Inject 42 Unit(s) Subcutaneous TID in addition to sliding scale 04/08/20 022 Inactive d/c 36u albuterol sulfate HFA 90 mcg/actuation aerosol inhaler RxNorm: 1684285 Take 2 Puff(s) Inhalation Q4H every four hours as needed as needed for SOB, cough, or wheezing 04/07/20 030 Active Banophen 50 mg capsule RxNorm: 2623762 Take 1 Capsule(s) Oral Q6H every 6 hours as needed 04/06/20 023 Inactive diphenhydramine 50 mg tablet RxNorm: 5549034 Take 1 Tablet(s) Oral Q6H every 6 hours as needed 04/06/20 22 022 Inactive diphenhydramine 50 mg tablet RxNorm: 5934755 1 Tablet(s) Oral Q6H every 6 hours as needed 04/06/20 22 022 Inactive Abilify 15 mg tablet RxNorm: 422803 1/2 Tablet(s) Oral QD 03/10/20 22 023 Inactive Shingrix (PF) 50 mcg/0.5 mL intramuscular suspension, kit RxNorm: 1411064 Administer 1/2 Milliliter(s) Intramuscular QD one time shingrix step 2 ( step 1 given 11/04/21) WITH needle - Nursing please administer upon arrival and once administered post a bridge message with date of administration, baker head, expiration date, and lot# so we can update [facility] 02/18/20 22 022 Inactive dispense with needle Shingrix (PF) 50 mcg/0.5 mL intramuscular suspension, kit RxNorm: 0378477 Administer 1/2 Milliliter(s) Intramuscular QD one time shingrix step 2 ( step 1 given 11/04/21) WITH needle - Nursing please administer upon arrival and once administered post a bridge message with date of administration, baker head, expiration date, and lot# so we can update [facility] 02/18/20 22 022 Inactive dispense with needle acetaminophen 500 mg tablet RxNorm: 547330 Take 1 Tablet(s) Oral TID 01/08/20 22 023 Active d/c PRN order polyethylene glycol 3350 17 gram/dose oral powder RxNorm: 886515 Take 17=1 capful Gram(s) Oral QD mix with 4-8oz of liquid 01/08/20 22 023 Active take this in addition to BID prn order Lyrica 100 mg capsule RxNorm: 409348 Take 1 Capsule(s) Oral QAM every morning 01/08/20 22 022 Inactive d/c 50mg dose Lyrica 150 mg capsule RxNorm: 582060 Take 1 Capsule(s) Oral QHS every night at bedtime 01/08/20 22 023 Inactive d/c 100mg dose Abilify 5 mg tablet RxNorm: 616325 Take 1 Tablet(s) Oral QD take 1 tab po QD #30 refill 5 dx: MDD 12/12/19 22 022 Inactive Abilify 5 mg tablet RxNorm: 336975 Take 1 Tablet(s) Oral QD take 1 tab po QD #30 refill 5 dx: MDD 12/12/19 22 022 Inactive chlorthalidone 25 mg tablet RxNorm: 623585 Take 1 Tablet(s) Oral QAM every morning 12/10/19 22 023 Active Novolog Flexpen U-100 Insulin aspart 100 unit/mL (3 mL) subcutaneous RxNorm: 6268883 Inject 42 Unit(s) Subcutaneous TID in addition to sliding scale 12/10/19 22 022 Inactive d/c 36u pregabalin 50 mg capsule RxNorm: 070441 Take 1 Capsule(s) Oral QAM every morning 11/12/19 22 022 Inactive tetanus-diphtheria toxoids-Td 2 Lf unit-2 Lf unit/0.5 mL IM suspension RxNorm: 139 Take 0.5 Miscellaneous Intramuscular 11/12/19 22 022 Inactive need tdap - nursing to administer upon arrival pregabalin 50 mg capsule RxNorm: 655945 Take 1 Capsule(s) Oral QAM every morning 10/16/19 22 022 Inactive pregabalin 50 mg capsule RxNorm: 976801 Take 1 Capsule(s) Oral QAM every morning 10/16/19 22 022 Inactive pregabalin 50 mg capsule RxNorm: 075549 1 Capsule(s) Oral QAM every morning 10/15/19 22 022 Inactive Shingrix (PF) 50 mcg/0.5 mL intramuscular suspension, kit RxNorm: 3158537 Administer 1/2 Milliliter(s) Intramuscular one time Nursing please administer upon arrival and once administered post a bridge message with date of administration, baker head, 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 10/09/19 22 022 Inactive shingrix step 1 Shingrix (PF) 50 mcg/0.5 mL intramuscular suspension, kit RxNorm: 0840236 Administer 1/2 Milliliter(s) Intramuscular one time Nursing please administer upon arrival and once administered post a bridge message with date of administration, baker head, 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 10/09/19 22 022 Inactive shingrix step 1 cholecalciferol (vitamin D3) 1,250 mcg (50,000 unit) capsule RxNorm: 429702 Take 1 Capsule(s) Oral QW once a [...] aspart 100 unit/mL (3 mL) subcutaneous RxNorm: 2793981 Inject 10 Unit(s) Subcutaneous QHS every night at bedtime with nighttime snack 10/08/19 22 Inactive Shingrix (PF) 50 mcg/0.5 mL intramuscular suspension, kit RxNorm: 2157049 ADMINISTER 2-DOSE SERIES PER CDC GUIDELINES 10/08/19 22 Active Shingrix (PF) 50 mcg/0.5 mL intramuscular suspension, kit RxNorm: 7443662 ADMINISTER 2-DOSE SERIES PER CDC GUIDELINES 10/08/19 22 Inactive Novolog Flexpen U-100 Insulin aspart 100 unit/mL (3 mL) subcutaneous RxNorm: 7787309 Inject 36 Unit(s) Subcutaneous TID in addition to sliding scale 10/08/19 22 Inactive Novofine Autocover 30 gauge x 1/3 needle RxNorm: Use 1 Miscellaneous UD as directed Use 1 needle as directed to administer insulin 5 times a day Dx:E11.42. 10/03/19 Inactive ok to substitute with any covered alternative pen needle benzoyl peroxide 10 % topical cleanser RxNorm: 443974 Apply 1 Application Topical QD apply to face, wash rinse and dry once daily (may change to QOD if drying) 08/19/19 22 022 Inactive (%covered by insurance) #60ml refill 11 dx: acne benzoyl peroxide 10 % topical cleanser RxNorm: 592757 Apply 1 Application Topical QD apply to face, wash rinse and dry once daily (may change to QOD if drying) 08/19/19 22 022 Inactive (%covered by insurance) #60ml refill 11 dx: acne benzoyl peroxide 10 % topical cleanser RxNorm: 285211 Apply 1 Application Topical QD apply to face, wash rinse and dry once daily (may change to QOD if drying) 08/19/19 22 022 Inactive (%covered by insurance) #60ml refill 11 dx: acne Lyrica 50 mg capsule RxNorm: 656594 Take 1 Capsule(s) Oral QAM every morning Take 1 capsule by mouth once daily 08/19/19 22 022 Inactive benzoyl peroxide 10 % topical cleanser RxNorm: 052572 Apply 1 Application Topical QD apply to face, wash rinse and dry once daily (may change to QOD if drying) 08/19/19 22 022 Inactive (%covered by insurance) #60ml refill 11 dx: acne Lyrica 100 mg capsule RxNorm: 121526 Take 1 Capsule(s) Oral QHS every night at bedtime Take 1 capsule by mouth once daily at bedtime 08/19/19 22 022 Inactive Lyrica 100 mg capsule RxNorm: 368682 Take 1 Capsule(s) Oral QHS every night at bedtime Take 1 capsule by mouth once daily at bedtime 08/16/19 22 022 Inactive Lyrica 50 mg capsule RxNorm: 064466 Take 1 Capsule(s) Oral QAM every morning Take 1 capsule by mouth once daily 08/16/19 22 022 Inactive Levemir FlexTouch U-100 Insulin 100 unit/mL (3 mL) subcutaneous pen RxNorm: 898089 Inject 86 Unit(s) Subcutaneous BID 08/05/19 22 022 Inactive d/c 83units BID Lyrica 100 mg capsule RxNorm: 175368 Take 1 Capsule(s) Oral QHS every night at bedtime Take 1 capsule by mouth once daily at bedtime 07/14/19 22 022 Inactive Lyrica 50 mg capsule RxNorm: 039253 Take 1 Capsule(s) Oral QAM every morning Take 1 capsule by mouth once daily 07/14/19 22 022 Inactive Levemir FlexTouch U-100 Insulin 100 unit/mL (3 mL) subcutaneous pen RxNorm: 577193 Inject 83 Unit(s) Subcutaneous BID 07/08/19 22 [...] 30 mg tablet,extended release 24 hr RxNorm: 058108 Take 1 Tablet(s) Oral QD 05/05/20 No Stop Date Active hydralazine 50 mg tablet RxNorm: 817421 Take 1 Tablet(s) Oral QID 05/05/20 21 022 Inactive venlafaxine ER 225 mg tablet,extended release 24 hr RxNorm: 809625 Take 1 Tablet(s) Oral QD 05/05/20 21 Inactive venlafaxine ER 225 mg tablet,extended release 24 hr RxNorm: 956629 Take 1 Tablet(s) Oral QD 05/05/20 022 Inactive hydralazine 50 mg tablet RxNorm: 780154 Take 1 Tablet(s) Oral QID 05/05/20 21 021 Inactive aspirin 81 mg tablet,delayed release RxNorm: 868419 Take 1 Tablet(s) Oral QD 03/31/20 022 Inactive Zetia 10 mg tablet RxNorm: 095361 Take 1 Tablet(s) Oral QD 03/31/20 Inactive Vitamin D2 1,250 mcg (50,000 unit) capsule RxNorm: 5775168 Take 1 Capsule(s) Oral QW once a week x 12 weeks 03/31/20 Inactive Vitamin D2 1,250 mcg (50,000 unit) capsule RxNorm: 4334896 Take 1 Capsule(s) Oral QW once a week 03/31/20 Inactive Zetia 10 mg tablet RxNorm: 236277 Take 1 Tablet(s) Oral QD 03/31/20 Inactive hydralazine 25 mg tablet RxNorm: 696665 Take 1 Tablet(s) Oral QID 03/31/20 21 021 Inactive hydralazine 25 mg tablet RxNorm: 141905 Take 1 Tablet(s) Oral QID 03/31/20 021 Inactive hydralazine 10 mg tablet RxNorm: 365338 Take 1 Tablet(s) Oral QID 03/03/20 021 Inactive cephalexin 500 mg tablet RxNorm: 462522 Take 1 Tablet(s) Oral QID 02/27/20 021 Inactive cephalexin 500 mg tablet RxNorm: 433433 Take 1 Tablet(s) Oral QID 02/27/20 21 021 Inactive lisinopril 40 mg tablet RxNorm: 734242 Take 1 Tablet(s) Oral QD 02/11/20 21 023 Inactive Eliquis 5 mg tablet RxNorm: 9803416 Take 1 Tablet(s) Oral BID 01/05/20 022 Inactive Eliquis 5 mg tablet RxNorm: 2604635 Take 2 Tablet(s) Oral QD 01/01/20 021 Inactive Lyrica 50 mg capsule RxNorm: 117687 Take 1 Capsule(s) Oral QAM every morning 12/24/19 021 Inactive Lyrica 100 mg capsule RxNorm: 992790 Take 1 Capsule(s) Oral QHS every night at bedtime 12/24/19 021 Inactive clotrimazole 1 % topical cream RxNorm: 901833 Apply to right foot and toes Topical BID 12/04/19 21 023 Inactive metoprolol succinate ER 200 mg tablet,extended release 24 hr RxNorm: 923029 Take 1 Tablet(s) Oral QD 12/04/19 023 Inactive ciprofloxacin 500 mg tablet RxNorm: 801695 Take 1 Tablet(s) Oral QD 11/30/19 021 Inactive DX ofloxacin otic drops Accu-Chek Guide test strips RxNorm: USE 1 TO CHECK GLUCOSE 4 TIMES DAILY AND NEEDED 11/15/19 023 Inactive Blood Glucose Test strips RxNorm: Use 1 Test Strip QID at PRN 11/05/19 21 023 Inactive E11.42 lisinopril 30 mg tablet RxNorm: 158270 Take 1 Tablet(s) Oral QD 10/30/19 021 Inactive lisinopril 20 mg tablet RxNorm: 191073 Take 1 Tablet(s) Oral QD 10/23/19 021 Inactive lisinopril 20 mg tablet RxNorm: 098899 Take 1 Tablet(s) Oral QD 10/23/19 021 Inactive lisinopril 10 mg tablet RxNorm: 287151 Take 1 Tablet(s) Oral QD 10/02/19 21 021 Inactive icosapent ethyl 1 gram capsule RxNorm: 0706205 Take 2 Capsule(s) (2 gm) Oral BID with meals 09/12/19 21 022 Inactive Okay to dispense one 2gm tab if you have that available. icosapent ethyl 1 gram capsule RxNorm: 0577749 Take 2 Capsule(s) Oral BID 09/12/19 21 021 Inactive Okay to dispense one 2gm tab if you have that available. amlodipine 10 mg tablet RxNorm: 380942 Take 1 Tablet(s) Oral QD 09/04/19 022 Inactive aspirin 81 mg tablet,delayed release RxNorm: 637132 Take 1 Tablet(s) Oral QD 09/04/19 021 Inactive Levemir FlexTouch U-100 Insulin 100 unit/mL (3 mL) subcutaneous pen RxNorm: 947982 Inject 150 Unit(s) Subcutaneous BID 09/04/19 022 Inactive venlafaxine ER 150 mg tablet,extended release 24 hr RxNorm: 599935 Take 1 Tablet(s) Oral QD 09/04/19 Inactive clotrimazole-betame thasone 1 %-0.05 % topical cream RxNorm: 336610 Apply to rash on red area on left abdomen/chest Topical BID 08/10/19 21 021 Inactive amlodipine 5 mg tablet RxNorm: 952201 Take 1 Tablet(s) Oral QD 07/31/19 Inactive cephalexin 500 mg tablet RxNorm: 759613 Take 1 Tablet(s) Oral BID BID - Twice Daily 07/31/19 021 Inactive Start 08/01/20 pantoprazole 40 mg tablet,delayed release RxNorm: 316926 Take 1 Tablet(s) Oral QAM every morning 07/08/19 022 Inactive senna 8.6 mg tablet RxNorm: 437132 Take 1 Tablet(s) Oral QD 07/08/19 022 Inactive pravastatin 80 mg tablet RxNorm: 543875 Take 1 Tablet(s) Oral QHS every night at bedtime 07/08/19 022 Inactive carbamazepine 200 mg tablet RxNorm: 201930 Take 1 Tablet(s) Oral BID 07/08/19 022 Inactive torsemide 20 mg tablet RxNorm: 370152 Take 1 Tablet(s) Oral QD 07/08/19 21 023 Inactive clopidogrel 75 mg tablet RxNorm: 417569 Take 1 Tablet(s) Oral QD 07/08/19 21 021 Inactive Blood Glucose Test strips RxNorm: Use 1 Test Strip QID at PRN 07/08/19 21 Inactive E11.42 Novolog Flexpen U-100 Insulin aspart 100 unit/mL (3 mL) subcutaneous RxNorm: 5931519 Administer per sliding scale Milliliter(s) Subcutaneous TID 151-200: 10 u; 201-250: 20 u; 251-300: 30 u; 301-350: 40 u; 351-400: 50 u. 07/08/19 21 022 Inactive lisinopril 5 mg tablet RxNorm: 514022 Take 1 Tablet(s) Oral QD 07/08/19 021 Inactive Novolog Flexpen U-100 Insulin aspart 100 unit/mL (3 mL) subcutaneous RxNorm: 8907066 Inject 85 Unit(s) Subcutaneous TID 07/08/19 21 022 Inactive clotrimazole 1 % topical cream RxNorm: 998337 Apply to bilateral groin areas Topical BID 07/08/19 21 022 Inactive metoprolol succinate ER 200 mg tablet,extended release 24 hr RxNorm: 317440 Take 1 Tablet(s) Oral QD 07/08/19 21 021 Inactive Vitamin D3 25 mcg (1,000 unit) tablet RxNorm: 303568 Take 1 Tablet(s) Oral QD 07/08/19 021 Inactive isosorbide dinitrate 30 mg tablet RxNorm: 851555 Take 1 Tablet(s) Oral QD 07/08/19 21 021 Inactive Levemir FlexTouch U-100 Insulin 100 unit/mL (3 mL) subcutaneous pen RxNorm: 921902 Inject 140 Unit(s) Subcutaneous BID 07/08/19 21 021 Inactive venlafaxine 75 mg tablet RxNorm: 746414 Take 1 Tablet(s) Oral QD 07/08/19 21 021 Inactive acetaminophen 500 mg tablet RxNorm: 775161 Take 1 Tablet(s) Oral TID as needed for headache 06/18/19 21 021 Inactive acetaminophen 500 mg tablet RxNorm: 572608 Take 1 Tablet(s) Oral TID as needed for headache 06/18/19 21 021 Inactive Lyrica 100 mg capsule RxNorm: 329935 Take 1 Capsule(s) Oral QHS every night at bedtime 06/11/19 21 021 Inactive Lyrica 50 mg capsule RxNorm: 102031 Take 1 Capsule(s) Oral QAM every morning 06/10/19 21 021 Inactive hydrocortisone 2.5 % topical cream RxNorm: 354251 Apply to bilateral groin creases Topical BID 05/15/20 20 021 Inactive clotrimazole 1 % topical cream RxNorm: 106083 Apply to bilateral groin areas Topical BID 05/15/20 20 021 Inactive Lyrica 50 mg capsule RxNorm: 927628 Take 1 Capsule(s) Oral QAM every morning 05/14/20 20 020 Inactive Lyrica 100 mg capsule RxNorm: 725720 Take 1 Capsule(s) Oral QHS every night [...] Inactive Nystop 100,000 unit/gram topical powder RxNorm: 898599 Apply to abd folds, under breasts and L side of groin Topical BID x 14 days, then BID PRN 04/08/20 20 Inactive dx: yeast dermatitis Lyrica 100 mg capsule RxNorm: 720710 Take 1 Capsule(s) Oral QHS every night at bedtime 03/13/20 20 Inactive Lyrica 50 mg capsule RxNorm: 162814 Take 1 Capsule(s) Oral QAM every morning 03/13/20 Inactive ketoconazole 2 % shampoo RxNorm: 193370 Apply Topical two times a week with showers 03/11/20 20 Inactive cholecalciferol (vitamin D3) 50 mcg (2,000 unit) tablet RxNorm: 871822 Take 1 Tablet(s) Oral QD 03/11/20 20 Inactive Zetia 10 mg tablet RxNorm: 180358 Take 1 Tablet(s) Oral QD 03/07/20 20 Inactive Zetia 10 mg tablet RxNorm: 418976 Take 1 Tablet(s) Oral QD 03/07/20 20 Inactive Lyrica 50 mg capsule RxNorm: 945071 Take 1 Capsule(s) Oral QAM every morning 02/15/20 20 Inactive Lyrica 100 mg capsule RxNorm: 841803 Take 1 Capsule(s) Oral QHS every night at bedtime 02/15/20 20 Inactive Lyrica 100 mg capsule RxNorm: 546043 Take 1 Capsule(s) Oral QHS every night at bedtime 02/15/20 20 Inactive Lyrica 50 mg capsule RxNorm: 986367 Take 1 Capsule(s) Oral QAM every morning 02/15/20 20 Inactive venlafaxine ER 75 mg capsule,extended release 24 hr RxNorm: 223048 Take 3 Capsule(s) Oral QD 06/12/19 Active polyethylene glycol 3350 17 gram/dose oral powder RxNorm: 246201 Take 17=1 capful Gram(s) Oral BID as needed mix with 4-8oz of liquid 06/12/19 Active Levemir FlexTouch U-100 Insulin 100 unit/mL (3 mL) subcutaneous pen RxNorm: 470470 Inject 80 Unit(s) Subcutaneous BID 07/14/19 23 023 Inactive loperamide 2 mg capsule RxNorm: 126361 Take 1 Capsule(s) Oral QID as needed 06/12/19 22 Active Novolog Flexpen U-100 Insulin aspart 100 unit/mL (3 mL) subcutaneous RxNorm: 2465808 Insert 30 Unit(s) Subcutaneous TID with meals [...] Referral: [facility] WPtel: [phone] [id number] [place] Referral Records Received 09/21/2022 Referral: [facility] WPtel: [id number] [id number] [place] Referral Completed 05/28/2021 Referral: General Cardiology Referral Complet ed 01/03/2021 Referral: General Psychologist Referral Close d Instructions Comment Date Peter is a?? Male being seen living at [facility]. Initial BPS visit 01/2020. PMHx including DMII, CAD w/ 5 stents, Depression, Seizure Disorder and CKD stage 3. He moved into [facility] in 12/2019 but after a hospitalization 05/2021 he moved to the [facility] to have closer nursing attention.??Sister Jyotsna involved in his care cell# [phone]??Guardian: Don (tapan met in person 09/01/21), now has Lexii (same group as don)Lab Schedule: * 10/06/2022
--- OUTSIDE RECORDS SUMMARY | 2022-11-09 23:35 | XMS_ITS | CCD ---
Author Name Sandra Clark CNP Address [address] [facility] [address] [place] [address] Phone Organization [facility] Phone Care Team Providers Care Hog Grader Name Role Phone Tapan Shirley PA-C Primary Care Provider Unavailabl e Tapan Shirley PA-C Chronic Care Management Unavaila ble Summary Purpose DataExchange Insurance Providers Payer name Policy type / Coverage type Covered libertarian ID Effective Begin Date Effective End Date Medicare [place] Part B [id number] Unknown Unknown [place] Medicare Part B [id number] Unknown Unknown Family history Sister Brittany Suggs [...] [facility] 09/03/[address]: 1947187 Non-Smoker / No History of Smoking 09/02/[address]: [id number] No Alcohol Consum ption 09/02/2020 Allergies, Adverse Reactions, Alerts Substance Reaction Codes Entered Date Inactivated Date Status LISINOPRIL RxNorm: 17300 02/12/2020 No Inactive Da te Active Metformin [...] 05/01/2022 Active Coronary artery disease invo lving morongo coronary artery of morongo heart, angina presence unspecified ICD-10: I25.10 ICD-9: [...] immunization ICD-10: Z23 ICD-9: V03.89 02/10/2022 Resolved longterm (current) use of insulin ICD-10: Z79.4 02/10 [...] Fill Instructions Diflucan 150 mg tablet RxNorm: 709445 Take 1 Tablet(s) Oral QD repeat on day 3 and 6 06/30/19 23 023 Inactive Accu-Chek Guide test strips RxNorm: Use 1 Test Strip QID Use 1 test strip to monitor blood glucose 4 times daily and as needed. Dx:E11.42. 06/23/19 23 023 Inactive ok to substitute with any covered alternative test strip dextromethorphan-gu aifenesin 10 mg-100 mg/5 mL oral liquid RxNorm: 595108 Take 10 Milliliter(s) Oral every 4 hours as needed for cough 06/19/19 23 023 Inactive dextromethorphan-gu aifenesin 10 mg-100 mg/5 mL oral liquid RxNorm: 303070 Take 10 Milliliter(s) Oral every 4 hours as needed for cough 06/19/19 023 Inactive Lyrica 150 mg capsule RxNorm: 566868 Take 1 Capsule(s) Oral QHS every night at bedtime 06/18/19 023 Inactive d/c 100mg dose aripiprazole 15 mg tablet RxNorm: 873868 /2 TAB (7.5MG) ORALLY DAILY (DX:MAJOR DEPRESSIVE DISORDER) 06/05/19 023 Inactive pregabalin 100 mg capsule RxNorm: 233757 1 Capsule(s) Oral QAM every morning 06/02/19 023 Inactive Banophen 50 mg capsule RxNorm: 6257146 Take 1 Capsule(s) Oral Q6H every 6 hours as needed 05/19/19 No Stop Date Active Novolog Flexpen U-100 Insulin aspart 100 unit/mL (3 mL) subcutaneous RxNorm: 8317150 Inject 10 Unit(s) Subcutaneous QHS every night at bedtime with nighttime snack 04/08/20 022 Inactive Novolog Flexpen U-100 Insulin aspart 100 unit/mL (3 mL) subcutaneous RxNorm: 9286787 Inject 42 Unit(s) Subcutaneous TID in addition to sliding scale 04/08/20 022 Inactive d/c 36u albuterol sulfate HFA 90 mcg/actuation aerosol inhaler RxNorm: 6612731 Take 2 Puff(s) Inhalation Q4H every four hours as needed as needed for SOB, cough, or wheezing 04/07/20 030 Active Banophen 50 mg capsule RxNorm: 9332341 Take 1 Capsule(s) Oral Q6H every 6 hours as needed 04/06/20 023 Inactive diphenhydramine 50 mg tablet RxNorm: 4195691 Take 1 Tablet(s) Oral Q6H every 6 hours as needed 04/06/20 022 Inactive diphenhydramine 50 mg tablet RxNorm: 3449335 1 Tablet(s) Oral Q6H every 6 hours as needed 04/06/20 022 Inactive Abilify 15 mg tablet RxNorm: 389414 1/2 Tablet(s) Oral QD 03/10/20 22 023 Inactive Shingrix (PF) 50 mcg/0.5 mL intramuscular suspension, kit RxNorm: 6150251 Administer 1/2 Milliliter(s) Intramuscular QD one time shingrix step 2 ( step 1 given 11/04/21) WITH needle - Nursing please administer upon arrival and once administered post a bridge message with date of administration, maintenance mechanic, expiration date, and lot# so we can update MIIC 02/18/20 22 022 Inactive dispense with needle Shingrix (PF) 50 mcg/0.5 mL intramuscular suspension, kit RxNorm: 2133520 Administer 1/2 Milliliter(s) Intramuscular QD one time shingrix step 2 ( step 1 given 11/04/21) WITH needle - Nursing please administer upon arrival and once administered post a bridge message with date of administration, maintenance mechanic, expiration date, and lot# so we can update MOIC 02/18/20 22 022 Inactive dispense with needle acetaminophen 500 mg tablet RxNorm: 258868 Take 1 Tablet(s) Oral TID 01/08/20 22 023 Active d/c PRN order polyethylene glycol 3350 17 gram/dose oral powder RxNorm: 917312 Take 17=1 capful Gram(s) Oral QD mix with 4-8oz of liquid 01/08/20 22 023 Active take this in addition to BID prn order Lyrica 100 mg capsule RxNorm: 491110 Take 1 Capsule(s) Oral QAM every morning 01/08/20 22 022 Inactive d/c 50mg dose Lyrica 150 mg capsule RxNorm: 666899 Take 1 Capsule(s) Oral QHS every night at bedtime 01/08/20 22 023 Inactive d/c 100mg dose Abilify 5 mg tablet RxNorm: 248928 Take 1 Tablet(s) Oral QD take 1 tab po QD #30 refill 5 dx: MDD 12/12/19 22 022 Inactive Abilify 5 mg tablet RxNorm: 788148 Take 1 Tablet(s) Oral QD take 1 tab po QD #30 refill 5 dx: MDD 12/12/19 22 022 Inactive chlorthalidone 25 mg tablet RxNorm: 104773 Take 1 Tablet(s) Oral QAM every morning 12/10/19 22 023 Active Novolog Flexpen U-100 Insulin aspart 100 unit/mL (3 mL) subcutaneous RxNorm: 6072279 Inject 42 Unit(s) Subcutaneous TID in addition to sliding scale 12/10/19 22 Inactive d/c 36u pregabalin 50 mg capsule RxNorm: 096906 Take 1 Capsule(s) Oral QAM every morning 11/12/19 22 022 Inactive tetanus-diphtheria toxoids-Td 2 Lf unit-2 Lf unit/0.5 mL IM suspension RxNorm: 139 Take 0.5 Miscellaneous Intramuscular 11/12/19 022 Inactive need tdap - nursing to administer upon arrival pregabalin 50 mg capsule RxNorm: 262561 Take 1 Capsule(s) Oral QAM every morning 10/16/19 022 Inactive pregabalin 50 mg capsule RxNorm: 704572 Take 1 Capsule(s) Oral QAM every morning 10/16/19 22 022 Inactive pregabalin 50 mg capsule RxNorm: 982544 1 Capsule(s) Oral QAM every morning 10/15/19 22 022 Inactive Shingrix (PF) 50 mcg/0.5 mL intramuscular suspension, kit RxNorm: 8949809 Administer 1/2 Milliliter(s) Intramuscular one time Nursing please administer upon arrival and once administered post a bridge message with date of administration, maintenance mechanic, 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 10/09/19 22 022 Inactive shingrix step 1 Shingrix (PF) 50 mcg/0.5 mL intramuscular suspension, kit RxNorm: 3347301 Administer 1/2 Milliliter(s) Intramuscular one time Nursing please administer upon arrival and once administered post a bridge message with date of administration, maintenance mechanic, 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 10/09/19 22 022 Inactive shingrix step 1 cholecalciferol (vitamin D3) 1,250 mcg (50,000 unit) capsule RxNorm: 274976 Take 1 Capsule(s) Oral QW once a [...] aspart 100 unit/mL (3 mL) subcutaneous RxNorm: 4525527 Inject 10 Unit(s) Subcutaneous QHS every night at bedtime with nighttime snack 10/08/19 22 Inactive Shingrix (PF) 50 mcg/0.5 mL intramuscular suspension, kit RxNorm: 7269566 ADMINISTER 2-DOSE SERIES PER CDC GUIDELINES 10/08/19 22 Active Shingrix (PF) 50 mcg/0.5 mL intramuscular suspension, kit RxNorm: 0487136 ADMINISTER 2-DOSE SERIES PER CDC GUIDELINES 10/08/19 22 Inactive Novolog Flexpen U-100 Insulin aspart 100 unit/mL (3 mL) subcutaneous RxNorm: 4906792 Inject 36 Unit(s) Subcutaneous TID in addition to sliding scale 10/08/19 22 Inactive Novofine Autocover 30 gauge x 1/3 needle RxNorm: Use 1 Miscellaneous UD as directed Use 1 needle as directed to administer insulin 5 times a day Dx:E11.42. 10/03/19 22 Inactive ok to substitute with any covered alternative pen needle benzoyl peroxide 10 % topical cleanser RxNorm: 648206 Apply 1 Application Topical QD apply to face, wash rinse and dry once daily (may change to QOD if drying) 08/19/19 22 Inactive (%covered by insurance) #60ml refill 11 dx: acne benzoyl peroxide 10 % topical cleanser RxNorm: 279149 Apply 1 Application Topical QD apply to face, wash rinse and dry once daily (may change to QOD if drying) 08/19/19 22 022 Inactive (%covered by insurance) #60ml refill 11 dx: acne benzoyl peroxide 10 % topical cleanser RxNorm: 673714 Apply 1 Application Topical QD apply to face, wash rinse and dry once daily (may change to QOD if drying) 08/19/19 22 022 Inactive (%covered by insurance) #60ml refill 11 dx: acne Lyrica 50 mg capsule RxNorm: 820838 Take 1 Capsule(s) Oral QAM every morning Take 1 capsule by mouth once daily 08/19/19 22 022 Inactive benzoyl peroxide 10 % topical cleanser RxNorm: 040224 Apply 1 Application Topical QD apply to face, wash rinse and dry once daily (may change to QOD if drying) 08/19/19 22 022 Inactive (%covered by insurance) #60ml refill 11 dx: acne Lyrica 100 mg capsule RxNorm: 563519 Take 1 Capsule(s) Oral QHS every night at bedtime Take 1 capsule by mouth once daily at bedtime 08/19/19 22 022 Inactive Lyrica 100 mg capsule RxNorm: 126869 Take 1 Capsule(s) Oral QHS every night at bedtime Take 1 capsule by mouth once daily at bedtime 08/16/19 22 022 Inactive Lyrica 50 mg capsule RxNorm: 008099 Take 1 Capsule(s) Oral QAM every morning Take 1 capsule by mouth once daily 08/16/19 022 Inactive Levemir FlexTouch U-100 Insulin 100 unit/mL (3 mL) subcutaneous pen RxNorm: 195596 Inject 86 Unit(s) Subcutaneous BID 08/05/19 22 022 Inactive d/c 83units BID Lyrica 100 mg capsule RxNorm: 883582 Take 1 Capsule(s) Oral QHS every night at bedtime Take 1 capsule by mouth once daily at bedtime 07/14/19 22 022 Inactive Lyrica 50 mg capsule RxNorm: 294641 Take 1 Capsule(s) Oral QAM every morning Take 1 capsule by mouth once daily 07/14/19 Inactive Levemir FlexTouch U-100 Insulin 100 unit/mL (3 mL) subcutaneous pen RxNorm: 332472 Inject 83 Unit(s) Subcutaneous BID 07/08/19 22 [...] 30 mg tablet,extended release 24 hr RxNorm: 440056 Take 1 Tablet(s) Oral QD 05/05/20 No Stop Date Active hydralazine 50 mg tablet RxNorm: 203781 Take 1 Tablet(s) Oral QID 05/05/20 Inactive venlafaxine ER 225 mg tablet,extended release 24 hr RxNorm: 777583 Take 1 Tablet(s) Oral QD 05/05/20 Inactive venlafaxine ER 225 mg tablet,extended release 24 hr RxNorm: 141222 Take 1 Tablet(s) Oral QD 05/05/20 022 Inactive hydralazine 50 mg tablet RxNorm: 138250 Take 1 Tablet(s) Oral QID 05/05/20 Inactive aspirin 81 mg tablet,delayed release RxNorm: 792479 Take 1 Tablet(s) Oral QD 03/31/20 Inactive Zetia 10 mg tablet RxNorm: 601138 Take 1 Tablet(s) Oral QD 03/31/20 Inactive Vitamin D2 1,250 mcg (50,000 unit) capsule RxNorm: 7342453 Take 1 Capsule(s) Oral QW once a week x 12 weeks 03/31/20 Inactive Vitamin D2 1,250 mcg (50,000 unit) capsule RxNorm: 5939066 Take 1 Capsule(s) Oral QW once a week 03/31/20 Inactive Zetia 10 mg tablet RxNorm: 712806 Take 1 Tablet(s) Oral QD 03/31/20 Inactive hydralazine 25 mg tablet RxNorm: 972035 Take 1 Tablet(s) Oral QID 03/31/20 021 Inactive hydralazine 25 mg tablet RxNorm: 075535 Take 1 Tablet(s) Oral QID 03/31/20 021 Inactive hydralazine 10 mg tablet RxNorm: 108722 Take 1 Tablet(s) Oral QID 03/03/20 Inactive cephalexin 500 mg tablet RxNorm: 439886 Take 1 Tablet(s) Oral QID 02/27/20 021 Inactive cephalexin 500 mg tablet RxNorm: 602179 Take 1 Tablet(s) Oral QID 10/13/20 21 10/13/2 021 Inactive lisinopril 40 mg tablet RxNorm: 442588 Take 1 Tablet(s) Oral QD 02/11/20 21 023 Inactive Eliquis 5 mg tablet RxNorm: 0593091 Take 1 Tablet(s) Oral BID 01/05/20 21 022 Inactive Eliquis 5 mg tablet RxNorm: 5827190 Take 2 Tablet(s) Oral QD 01/01/20 21 021 Inactive Lyrica 50 mg capsule RxNorm: 468249 Take 1 Capsule(s) Oral QAM every morning 12/24/19 21 021 Inactive Lyrica 100 mg capsule RxNorm: 089342 Take 1 Capsule(s) Oral QHS every night at bedtime 12/24/19 021 Inactive clotrimazole 1 % topical cream RxNorm: 319219 Apply to right foot and toes Topical BID 12/04/19 21 023 Inactive metoprolol succinate ER 200 mg tablet,extended release 24 hr RxNorm: 090248 Take 1 Tablet(s) Oral QD 12/04/19 023 Inactive ciprofloxacin 500 mg tablet RxNorm: 203958 Take 1 Tablet(s) Oral QD 11/30/19 21 021 Inactive DX ofloxacin otic drops Accu-Chek Guide test strips RxNorm: USE 1 TO CHECK GLUCOSE 4 TIMES DAILY AND NEEDED 11/15/19 21 023 Inactive Blood Glucose Test strips RxNorm: Use 1 Test Strip QID at PRN 11/05/19 21 023 Inactive E11.42 lisinopril 30 mg tablet RxNorm: 078118 Take 1 Tablet(s) Oral QD 10/30/19 021 Inactive lisinopril 20 mg tablet RxNorm: 443297 Take 1 Tablet(s) Oral QD 10/23/19 21 021 Inactive lisinopril 20 mg tablet RxNorm: 525415 Take 1 Tablet(s) Oral QD 10/23/19 21 021 Inactive lisinopril 10 mg tablet RxNorm: 343209 Take 1 Tablet(s) Oral QD 10/02/19 21 06/07/2 021 Inactive icosapent ethyl 1 gram capsule RxNorm: 9966631 Take 2 Capsule(s) (2 gm) Oral BID with meals 09/12/19 Inactive Okay to dispense one 2gm tab if you have that available. icosapent ethyl 1 gram capsule RxNorm: 7633335 Take 2 Capsule(s) Oral BID 09/12/19 Inactive Okay to dispense one 2gm tab if you have that available. amlodipine 10 mg tablet RxNorm: 783223 Take 1 Tablet(s) Oral QD 09/04/19 Inactive aspirin 81 mg tablet,delayed release RxNorm: 257508 Take 1 Tablet(s) Oral QD 09/04/19 Inactive Levemir FlexTouch U-100 Insulin 100 unit/mL (3 mL) subcutaneous pen RxNorm: 830073 Inject 150 Unit(s) Subcutaneous BID 09/04/19 Inactive venlafaxine ER 150 mg tablet,extended release 24 hr RxNorm: 966580 Take 1 Tablet(s) Oral QD 09/04/19 Inactive clotrimazole-betame thasone 1 %-0.05 % topical cream RxNorm: 690422 Apply to rash on red area on left abdomen/chest Topical BID 08/10/19 Inactive amlodipine 5 mg tablet RxNorm: 173561 Take 1 Tablet(s) Oral QD 07/31/19 Inactive cephalexin 500 mg tablet RxNorm: 162438 Take 1 Tablet(s) Oral BID BID - Twice Daily 07/31/19 021 Inactive Start 08/01/20 pantoprazole 40 mg tablet,delayed release RxNorm: 439551 Take 1 Tablet(s) Oral QAM every morning 07/08/19 Inactive senna 8.6 mg tablet RxNorm: 619588 Take 1 Tablet(s) Oral QD 07/08/19 022 Inactive pravastatin 80 mg tablet RxNorm: 260442 Take 1 Tablet(s) Oral QHS every night at bedtime 07/08/19 022 Inactive carbamazepine 200 mg tablet RxNorm: 343167 Take 1 Tablet(s) Oral BID 07/08/19 Inactive torsemide 20 mg tablet RxNorm: 998453 Take 1 Tablet(s) Oral QD 07/08/19 023 Inactive clopidogrel 75 mg tablet RxNorm: 610527 Take 1 Tablet(s) Oral QD 07/08/19 021 Inactive Blood Glucose Test strips RxNorm: Use 1 Test Strip QID at PRN 07/08/19 Inactive E11.42 Novolog Flexpen U-100 Insulin aspart 100 unit/mL (3 mL) subcutaneous RxNorm: 4176642 Administer per sliding scale Milliliter(s) Subcutaneous TID 151-200: 10 u; 201-250: 20 u; 251-300: 30 u; 301-350: 40 u; 351-400: 50 u. 07/08/19 Inactive lisinopril 5 mg tablet RxNorm: 147369 Take 1 Tablet(s) Oral QD 07/08/19 Inactive Novolog Flexpen U-100 Insulin aspart 100 unit/mL (3 mL) subcutaneous RxNorm: 3403980 Inject 85 Unit(s) Subcutaneous TID 07/08/19 Inactive clotrimazole 1 % topical cream RxNorm: 766861 Apply to bilateral groin areas Topical BID 07/08/19 Inactive metoprolol succinate ER 200 mg tablet,extended release 24 hr RxNorm: 294726 Take 1 Tablet(s) Oral QD 07/08/19 021 Inactive Vitamin D3 25 mcg (1,000 unit) tablet RxNorm: 680774 Take 1 Tablet(s) Oral QD 07/08/19 021 Inactive isosorbide dinitrate 30 mg tablet RxNorm: 559100 Take 1 Tablet(s) Oral QD 07/08/19 21 Inactive Levemir FlexTouch U-100 Insulin 100 unit/mL (3 mL) subcutaneous pen RxNorm: 418255 Inject 140 Unit(s) Subcutaneous BID 07/08/19 021 Inactive venlafaxine 75 mg tablet RxNorm: 238514 Take 1 Tablet(s) Oral QD 07/08/19 21 Inactive acetaminophen 500 mg tablet RxNorm: 360051 Take 1 Tablet(s) Oral TID as needed for headache 06/18/19 21 021 Inactive acetaminophen 500 mg tablet RxNorm: 787988 Take 1 Tablet(s) Oral TID as needed for headache 06/18/19 21 021 Inactive Lyrica 100 mg capsule RxNorm: 183558 Take 1 Capsule(s) Oral QHS every night at bedtime 06/11/19 21 021 Inactive Lyrica 50 mg capsule RxNorm: 651824 Take 1 Capsule(s) Oral QAM every morning 06/10/19 21 021 Inactive hydrocortisone 2.5 % topical cream RxNorm: 691982 Apply to bilateral groin creases Topical BID 05/15/20 20 021 Inactive clotrimazole 1 % topical cream RxNorm: 440428 Apply to bilateral groin areas Topical BID 05/15/20 20 021 Inactive Lyrica 50 mg capsule RxNorm: 810918 Take 1 Capsule(s) Oral QAM every morning 05/14/20 20 020 Inactive Lyrica 100 mg capsule RxNorm: 030078 Take 1 Capsule(s) Oral QHS every night [...] Inactive Nystop 100,000 unit/gram topical powder RxNorm: 605661 Apply to abd folds, under breasts and L side of groin Topical BID x 14 days, then BID PRN 04/08/20 20 Inactive dx: yeast dermatitis Lyrica 100 mg capsule RxNorm: 645219 Take 1 Capsule(s) Oral QHS every night at bedtime 03/13/20 20 Inactive Lyrica 50 mg capsule RxNorm: 575351 Take 1 Capsule(s) Oral QAM every morning 03/13/20 20 Inactive ketoconazole 2 % shampoo RxNorm: 694724 Apply Topical two times a week with showers 03/11/20 20 Inactive cholecalciferol (vitamin D3) 50 mcg (2,000 unit) tablet RxNorm: 855052 Take 1 Tablet(s) Oral QD 03/11/20 20 Inactive Zetia 10 mg tablet RxNorm: 048471 Take 1 Tablet(s) Oral QD 03/07/20 20 Inactive Zetia 10 mg tablet RxNorm: 192021 Take 1 Tablet(s) Oral QD 03/07/20 20 Inactive Lyrica 50 mg capsule RxNorm: 083047 Take 1 Capsule(s) Oral QAM every morning 02/15/20 20 Inactive Lyrica 100 mg capsule RxNorm: 791840 Take 1 Capsule(s) Oral QHS every night at bedtime 02/15/20 20 Inactive Lyrica 100 mg capsule RxNorm: 566478 Take 1 Capsule(s) Oral QHS every night at bedtime 02/15/20 20 Inactive Lyrica 50 mg capsule RxNorm: 085326 Take 1 Capsule(s) Oral QAM every morning 02/15/20 20 Inactive venlafaxine ER 75 mg capsule,extended release 24 hr RxNorm: 428961 Take 3 Capsule(s) Oral QD 06/12/19 Active polyethylene glycol 3350 17 gram/dose oral powder RxNorm: 880891 Take 17=1 capful Gram(s) Oral BID as needed mix with 4-8oz of liquid 06/12/19 Active Levemir FlexTouch U-100 Insulin 100 unit/mL (3 mL) subcutaneous pen RxNorm: 814014 Inject 80 Unit(s) Subcutaneous BID 07/14/19 23 023 Inactive loperamide 2 mg capsule RxNorm: 028435 Take 1 Capsule(s) Oral QID as needed 06/12/19 22 Active Novolog Flexpen U-100 Insulin aspart 100 unit/mL (3 mL) subcutaneous RxNorm: 1252511 Insert 30 Unit(s) Subcutaneous TID with meals [...] Encounter Performer Location Location Address Codes Date ([address]) Home or Residence Visit Est Pt - Low Level, 30 mins Diagnosis: Major depression, recurrent[ICD10: F33.9] Diagnosis: High risk medication use[ICD10: Z79.899] Sandra Clark [address] [place] [address] [address] [place] [address] CPT-4: 17705 06/23/2022 Plan of Care Planned Activity Notes Codes Status Date Referral: [facility] [address] [address] [id number] [place] Referral Records Received 09/21/2022 Patient Education: Patient M edication Summary Completed 06/23/2022 Patient Education: Influenza Vaccine Completed 06/23/2022 Appointment: Tapan Shirley WPtel: [address] [facility] [address] [id number]/U 02/10/2022 Referral: [facility] WPtel: [address] [id number] [place] Referral Completed 05/28/2021 Referral: General Cardiology Referral Complet ed 01/03/2021 Referral: General Psychologist Referral Close d Instructions Comment Date Leonid is a?? Male being seen living at [facility]. Initial BPS visit 01/2020. PMHx including DMII, CAD w/ 5 stents, Depression, Seizure Disorder and CKD stage 3. He moved into [facility] in 12/2019 but after a hospitalization 05/2021 he moved to the [facility] to have closer nursing attention.??Sister Jyotsna involved in his care cell# [phone]??Guardian: Don (tapan met in person 09/01/21), now has Lexii (same group as don)Lab Schedule: /September* 10/06/2022 High risk medication use Currently taking [...] Continue Abilify 7.5mg daily, Venlafaxine 225mg daily.? . 06/23/2022
--- OUTSIDE RECORDS SUMMARY | 2022-11-09 23:35 | XMS_ITS | CCD ---
Author Name Unknown Organization Unknown Care Team Providers Care Sales Engineering Manager Name Role Phone Tapan Shirley PA-C Primary Care Provider Unavailabl e Tapan Shirley PA-C Chronic Care Management Unavaila ble Summary Purpose DataExchange Insurance Providers Payer name Policy type / Coverage type Covered green party ID Effective Begin Date Effective End Date Medicare [place] Medicare Part B [id number] Unknown Unknown Medicaid [place] Medicare Part B [id number] Unknown Unknown Family history Sister Brittany Suggs [...] Alf 09/03/[address]: 6099864 Non-Smoker / No History of Smoking 09/02/[address]: 429758198 No Alcohol Consum ption 09/02/2020 Allergies, Adverse Reactions, Alerts Substance Reaction Codes Entered Date Inactivated Date Status LISINOPRIL RxNorm: 80747 02/12/2020 No Inactive Da te Active Metformin [...] 250.60 06/09/2022 Active Hypertensive heart disease w [facility] heart failure ICD-10: I11.9 ICD-9: 402.90 05/05/2022 Active High risk medication use ICD-10: Z79.899 ICD-9: V58.69 05/01/2022 Active Major depression, recurrent ICD-10: F33. 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 ICD-10: Z79.4 02/10 [...] Fill Instructions Diflucan 150 mg tablet RxNorm: 672575 Take 1 Tablet(s) Oral QD repeat on day 3 and 6 06/30/19 23 023 Inactive dextromethorphan-gu aifenesin 10 mg-100 mg/5 mL oral liquid RxNorm: 406154 Take 10 Milliliter(s) Oral every 4 hours as needed for cough 06/19/19 23 023 Inactive dextromethorphan-gu aifenesin 10 mg-100 mg/5 mL oral liquid RxNorm: 156361 Take 10 Milliliter(s) Oral every 4 hours as needed for cough 06/19/19 23 023 Inactive Lyrica 150 mg capsule RxNorm: 453932 Take 1 Capsule(s) Oral QHS every night at bedtime 06/18/19 23 023 Inactive d/c 100mg dose aripiprazole 15 mg tablet RxNorm: 145160 05/18 TAB (7.5MG) ORALLY DAILY (DX:MAJOR DEPRESSIVE DISORDER) 01 023 Inactive pregabalin 100 mg capsule RxNorm: 290124 1 Capsule(s) Oral QAM every morning 06/02/19 023 Inactive Banophen 50 mg capsule RxNorm: 8607815 Take 1 Capsule(s) Oral Q6H every 6 hours as needed 05/19/19 No Stop Date Active Novolog Flexpen U-100 Insulin aspart 100 unit/mL (3 mL) subcutaneous RxNorm: 9676627 Inject 10 Unit(s) Subcutaneous QHS every night at bedtime with nighttime snack 04/08/20 Inactive Novolog Flexpen U-100 Insulin aspart 100 unit/mL (3 mL) subcutaneous RxNorm: 8737216 Inject 42 Unit(s) Subcutaneous TID in addition to sliding scale 04/08/20 Inactive d/c 36u albuterol sulfate HFA 90 mcg/actuation aerosol inhaler RxNorm: 3365241 Take 2 Puff(s) Inhalation Q4H every four hours as needed as needed for SOB, cough, or wheezing 04/07/20 030 Active Banophen 50 mg capsule RxNorm: 1198433 Take 1 Capsule(s) Oral Q6H every 6 hours as needed 04/06/20 023 Inactive diphenhydramine 50 mg tablet RxNorm: 1458234 Take 1 Tablet(s) Oral Q6H every 6 hours as needed 04/06/20 022 Inactive diphenhydramine 50 mg tablet RxNorm: 5530882 1 Tablet(s) Oral Q6H every 6 hours as needed 04/06/20 022 Inactive Abilify 15 mg tablet RxNorm: 499392 1/2 Tablet(s) Oral QD 03/10/20 22 023 Inactive Shingrix (PF) 50 mcg/0.5 mL intramuscular suspension, kit RxNorm: 1713847 Administer 1/2 Milliliter(s) Intramuscular QD one time shingrix step 2 ( step 1 given 11/04/21) WITH needle - Nursing please administer upon arrival and once administered post a bridge message with date of administration, waiver analyst, expiration date, and lot# so we can update [facility] 02/18/2007 03/04/2 022 Inactive dispense with needle Shingrix (PF) 50 mcg/0.5 mL intramuscular suspension, kit RxNorm: 0572232 Administer 1/2 Milliliter(s) Intramuscular QD one time shingrix step 2 ( step 1 given 11/04/21) WITH needle - Nursing please administer upon arrival and once administered post a bridge message with date of administration, waiver analyst, expiration date, and lot# so we can update [facility] 02/18/20 22 Inactive dispense with needle acetaminophen 500 mg tablet RxNorm: 238186 Take 1 Tablet(s) Oral TID 01/08/20 22 023 Active d/c PRN order polyethylene glycol 3350 17 gram/dose oral powder RxNorm: 085649 Take 17=1 capful Gram(s) Oral QD mix with 4-8oz of liquid 01/08/20 22 023 Active take this in addition to BID prn order Lyrica 100 mg capsule RxNorm: 640704 Take 1 Capsule(s) Oral QAM every morning 01/08/20 22 022 Inactive d/c 50mg dose Lyrica 150 mg capsule RxNorm: 150302 Take 1 Capsule(s) Oral QHS every night at bedtime 01/08/20 22 023 Inactive d/c 100mg dose Abilify 5 mg tablet RxNorm: 334549 Take 1 Tablet(s) Oral QD take 1 tab po QD #30 refill 5 dx: MDD 12/12/19 22 022 Inactive Abilify 5 mg tablet RxNorm: 189351 Take 1 Tablet(s) Oral QD take 1 tab po QD #30 refill 5 dx: MDD 12/12/19 22 022 Inactive chlorthalidone 25 mg tablet RxNorm: 260386 Take 1 Tablet(s) Oral QAM every morning 12/10/19 22 023 Active Novolog Flexpen U-100 Insulin aspart 100 unit/mL (3 mL) subcutaneous RxNorm: 4214041 Inject 42 Unit(s) Subcutaneous TID in addition to sliding scale 12/10/19 22 022 Inactive d/c 36u pregabalin 50 mg capsule RxNorm: 498181 Take 1 Capsule(s) Oral QAM every morning 11/12/19 22 022 Inactive tetanus-diphtheria toxoids-Td 2 Lf unit-2 Lf unit/0.5 mL IM suspension RxNorm: 139 Take 0.5 Miscellaneous Intramuscular 11/12/19 22 022 Inactive need tdap - nursing to administer upon arrival pregabalin 50 mg capsule RxNorm: 414745 Take 1 Capsule(s) Oral QAM every morning 10/16/19 22 022 Inactive pregabalin 50 mg capsule RxNorm: 483836 Take 1 Capsule(s) Oral QAM every morning 10/16/19 22 022 Inactive pregabalin 50 mg capsule RxNorm: 218663 1 Capsule(s) Oral QAM every morning 10/15/19 22 022 Inactive Shingrix (PF) 50 mcg/0.5 mL intramuscular suspension, kit RxNorm: 5748464 Administer 1/2 Milliliter(s) Intramuscular one time Nursing please administer upon arrival and once administered post a bridge message with date of administration, waiver analyst, 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 10/09/19 22 022 Inactive shingrix step 1 Shingrix (PF) 50 mcg/0.5 mL intramuscular suspension, kit RxNorm: 9889240 Administer 1/2 Milliliter(s) Intramuscular one time Nursing please administer upon arrival and once administered post a bridge message with date of administration, waiver analyst, 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 10/09/19 22 022 Inactive shingrix step 1 cholecalciferol (vitamin D3) 1,250 mcg (50,000 unit) capsule RxNorm: 376626 Take 1 Capsule(s) Oral QW once a [...] aspart 100 unit/mL (3 mL) subcutaneous RxNorm: 7504621 Inject 10 Unit(s) Subcutaneous QHS every night at bedtime with nighttime snack 10/08/19 22 Inactive Shingrix (PF) 50 mcg/0.5 mL intramuscular suspension, kit RxNorm: 7336708 ADMINISTER 2-DOSE SERIES PER CDC GUIDELINES 10/08/19 22 Active Shingrix (PF) 50 mcg/0.5 mL intramuscular suspension, kit RxNorm: 7468326 ADMINISTER 2-DOSE SERIES PER CDC GUIDELINES 10/08/19 22 Inactive Novolog Flexpen U-100 Insulin aspart 100 unit/mL (3 mL) subcutaneous RxNorm: 9273203 Inject 36 Unit(s) Subcutaneous TID in addition to sliding scale 10/08/19 22 Inactive Novofine Autocover 30 gauge x 1/3 needle RxNorm: Use 1 Miscellaneous UD as directed Use 1 needle as directed to administer insulin 5 times a day Dx:E11.42. 10/03/19 Inactive ok to substitute with any covered alternative pen needle benzoyl peroxide 10 % topical cleanser RxNorm: 466836 Apply 1 Application Topical QD apply to face, wash rinse and dry once daily (may change to QOD if drying) 08/19/19 22 022 Inactive (%covered by insurance) #60ml refill 11 dx: acne benzoyl peroxide 10 % topical cleanser RxNorm: 860378 Apply 1 Application Topical QD apply to face, wash rinse and dry once daily (may change to QOD if drying) 08/19/19 22 022 Inactive (%covered by insurance) #60ml refill 11 dx: acne benzoyl peroxide 10 % topical cleanser RxNorm: 876259 Apply 1 Application Topical QD apply to face, wash rinse and dry once daily (may change to QOD if drying) 08/19/19 22 022 Inactive (%covered by insurance) #60ml refill 11 dx: acne Lyrica 50 mg capsule RxNorm: 291097 Take 1 Capsule(s) Oral QAM every morning Take 1 capsule by mouth once daily 08/19/19 22 022 Inactive benzoyl peroxide 10 % topical cleanser RxNorm: 372692 Apply 1 Application Topical QD apply to face, wash rinse and dry once daily (may change to QOD if drying) 08/19/19 22 022 Inactive (%covered by insurance) #60ml refill 11 dx: acne Lyrica 100 mg capsule RxNorm: 476412 Take 1 Capsule(s) Oral QHS every night at bedtime Take 1 capsule by mouth once daily at bedtime 08/19/19 022 Inactive Lyrica 100 mg capsule RxNorm: 091586 Take 1 Capsule(s) Oral QHS every night at bedtime Take 1 capsule by mouth once daily at bedtime 08/16/19 22 022 Inactive Lyrica 50 mg capsule RxNorm: 388116 Take 1 Capsule(s) Oral QAM every morning Take 1 capsule by mouth once daily 08/16/19 22 022 Inactive Levemir FlexTouch U-100 Insulin 100 unit/mL (3 mL) subcutaneous pen RxNorm: 014064 Inject 86 Unit(s) Subcutaneous BID 08/05/19 22 022 Inactive d/c 83units BID Lyrica 100 mg capsule RxNorm: 085202 Take 1 Capsule(s) Oral QHS every night at bedtime Take 1 capsule by mouth once daily at bedtime 07/14/19 22 022 Inactive Lyrica 50 mg capsule RxNorm: 915383 Take 1 Capsule(s) Oral QAM every morning Take 1 capsule by mouth once daily 07/14/19 22 022 Inactive Levemir FlexTouch U-100 Insulin 100 unit/mL (3 mL) subcutaneous pen RxNorm: 389820 Inject 83 Unit(s) Subcutaneous BID 07/08/19 22 [...] 30 mg tablet,extended release 24 hr RxNorm: 341562 Take 1 Tablet(s) Oral QD 05/05/20 No Stop Date Active hydralazine 50 mg tablet RxNorm: 552025 Take 1 Tablet(s) Oral QID 05/05/20 21 022 Inactive venlafaxine ER 225 mg tablet,extended release 24 hr RxNorm: 191968 Take 1 Tablet(s) Oral QD 05/05/20 21 021 Inactive venlafaxine ER 225 mg tablet,extended release 24 hr RxNorm: 116191 Take 1 Tablet(s) Oral QD 05/05/20 21 022 Inactive hydralazine 50 mg tablet RxNorm: 051394 Take 1 Tablet(s) Oral QID 05/05/20 21 021 Inactive aspirin 81 mg tablet,delayed release RxNorm: 037892 Take 1 Tablet(s) Oral QD 03/31/20 Inactive Zetia 10 mg tablet RxNorm: 157041 Take 1 Tablet(s) Oral QD 03/31/20 Inactive Vitamin D2 1,250 mcg (50,000 unit) capsule RxNorm: 3011893 Take 1 Capsule(s) Oral QW once a week x 12 weeks 03/31/20 022 Inactive Vitamin D2 1,250 mcg (50,000 unit) capsule RxNorm: 3901754 Take 1 Capsule(s) Oral QW once a week 03/31/20 Inactive Zetia 10 mg tablet RxNorm: 562961 Take 1 Tablet(s) Oral QD 03/31/20 Inactive hydralazine 25 mg tablet RxNorm: 493353 Take 1 Tablet(s) Oral QID 03/31/20 021 Inactive hydralazine 25 mg tablet RxNorm: 468071 Take 1 Tablet(s) Oral QID 03/31/20 021 Inactive hydralazine 10 mg tablet RxNorm: 247829 Take 1 Tablet(s) Oral QID 03/03/20 021 Inactive cephalexin 500 mg tablet RxNorm: 646358 Take 1 Tablet(s) Oral QID 02/27/20 021 Inactive cephalexin 500 mg tablet RxNorm: 083107 Take 1 Tablet(s) Oral QID 02/27/20 021 Inactive lisinopril 40 mg tablet RxNorm: 901967 Take 1 Tablet(s) Oral QD 02/11/20 023 Inactive Eliquis 5 mg tablet RxNorm: 0211079 Take 1 Tablet(s) Oral BID 01/05/20 21 022 Inactive Eliquis 5 mg tablet RxNorm: 8889980 Take 2 Tablet(s) Oral QD 01/01/20 21 021 Inactive Lyrica 50 mg capsule RxNorm: 588000 Take 1 Capsule(s) Oral QAM every morning 12/24/19 21 021 Inactive Lyrica 100 mg capsule RxNorm: 143660 Take 1 Capsule(s) Oral QHS every night at bedtime 12/24/19 21 021 Inactive clotrimazole 1 % topical cream RxNorm: 588118 Apply to right foot and toes Topical BID 12/04/19 21 023 Inactive metoprolol succinate ER 200 mg tablet,extended release 24 hr RxNorm: 338574 Take 1 Tablet(s) Oral QD 12/04/19 21 023 Inactive ciprofloxacin 500 mg tablet RxNorm: 663477 Take 1 Tablet(s) Oral QD 11/30/19 21 021 Inactive DX ofloxacin otic drops Accu-Chek Guide test strips RxNorm: USE 1 TO CHECK GLUCOSE 4 TIMES DAILY AND NEEDED 11/15/19 21 023 Inactive Blood Glucose Test strips RxNorm: Use 1 Test Strip QID at PRN 11/05/19 21 023 Inactive E11.42 lisinopril 30 mg tablet RxNorm: 518853 Take 1 Tablet(s) Oral QD 10/30/19 021 Inactive lisinopril 20 mg tablet RxNorm: 359381 Take 1 Tablet(s) Oral QD 10/23/19 21 021 Inactive lisinopril 20 mg tablet RxNorm: 748488 Take 1 Tablet(s) Oral QD 10/23/19 21 021 Inactive lisinopril 10 mg tablet RxNorm: 058462 Take 1 Tablet(s) Oral QD 10/02/19 21 021 Inactive icosapent ethyl 1 gram capsule RxNorm: 9711061 Take 2 Capsule(s) (2 gm) Oral BID with meals 09/12/19 21 022 Inactive Okay to dispense one 2gm tab if you have that available. icosapent ethyl 1 gram capsule RxNorm: 5101511 Take 2 Capsule(s) Oral BID 09/12/19 21 021 Inactive Okay to dispense one 2gm tab if you have that available. amlodipine 10 mg tablet RxNorm: 448450 Take 1 Tablet(s) Oral QD 09/04/19 022 Inactive aspirin 81 mg tablet,delayed release RxNorm: 692730 Take 1 Tablet(s) Oral QD 09/04/19 021 Inactive Levemir FlexTouch U-100 Insulin 100 unit/mL (3 mL) subcutaneous pen RxNorm: 028235 Inject 150 Unit(s) Subcutaneous BID 09/04/19 21 022 Inactive venlafaxine ER 150 mg tablet,extended release 24 hr RxNorm: 206676 Take 1 Tablet(s) Oral QD 09/04/19 21 Inactive clotrimazole-betame thasone 1 %-0.05 % topical cream RxNorm: 838346 Apply to rash on red area on left abdomen/chest Topical BID 08/10/19 21 Inactive amlodipine 5 mg tablet RxNorm: 181932 Take 1 Tablet(s) Oral QD 07/31/19 21 021 Inactive cephalexin 500 mg tablet RxNorm: 692698 Take 1 Tablet(s) Oral BID BID - Twice Daily 07/31/19 021 Inactive Start 08/01/20 pantoprazole 40 mg tablet,delayed release RxNorm: 767537 Take 1 Tablet(s) Oral QAM every morning 07/08/19 022 Inactive senna 8.6 mg tablet RxNorm: 625748 Take 1 Tablet(s) Oral QD 07/08/19 022 Inactive pravastatin 80 mg tablet RxNorm: 927100 Take 1 Tablet(s) Oral QHS every night at bedtime 07/08/19 022 Inactive carbamazepine 200 mg tablet RxNorm: 785537 Take 1 Tablet(s) Oral BID 07/08/19 022 Inactive torsemide 20 mg tablet RxNorm: 845971 Take 1 Tablet(s) Oral QD 07/08/19 21 023 Inactive clopidogrel 75 mg tablet RxNorm: 432085 Take 1 Tablet(s) Oral QD 07/08/19 21 021 Inactive Blood Glucose Test strips RxNorm: Use 1 Test Strip QID at PRN 07/08/19 21 Inactive E11.42 Novolog Flexpen U-100 Insulin aspart 100 unit/mL (3 mL) subcutaneous RxNorm: 3879710 Administer per sliding scale Milliliter(s) Subcutaneous TID 151-200: 10 u; 201-250: 20 u; 251-300: 30 u; 301-350: 40 u; 351-400: 50 u. 07/08/19 21 022 Inactive lisinopril 5 mg tablet RxNorm: 623939 Take 1 Tablet(s) Oral QD 07/08/19 021 Inactive Novolog Flexpen U-100 Insulin aspart 100 unit/mL (3 mL) subcutaneous RxNorm: 2318912 Inject 85 Unit(s) Subcutaneous TID 07/08/19 Inactive clotrimazole 1 % topical cream RxNorm: 534137 Apply to bilateral groin areas Topical BID 07/08/19 022 Inactive metoprolol succinate ER 200 mg tablet,extended release 24 hr RxNorm: 643957 Take 1 Tablet(s) Oral QD 07/08/19 021 Inactive Vitamin D3 25 mcg (1,000 unit) tablet RxNorm: 684380 Take 1 Tablet(s) Oral QD 07/08/19 021 Inactive isosorbide dinitrate 30 mg tablet RxNorm: 652599 Take 1 Tablet(s) Oral QD 07/08/19 021 Inactive Levemir FlexTouch U-100 Insulin 100 unit/mL (3 mL) subcutaneous pen RxNorm: 080145 Inject 140 Unit(s) Subcutaneous BID 07/08/19 021 Inactive venlafaxine 75 mg tablet RxNorm: 002547 Take 1 Tablet(s) Oral QD 07/08/19 021 Inactive acetaminophen 500 mg tablet RxNorm: 304795 Take 1 Tablet(s) Oral TID as needed for headache 06/18/19 021 Inactive acetaminophen 500 mg tablet RxNorm: 016029 Take 1 Tablet(s) Oral TID as needed for headache 06/18/19 21 021 Inactive Lyrica 100 mg capsule RxNorm: 178530 Take 1 Capsule(s) Oral QHS every night at bedtime 06/11/19 21 021 Inactive Lyrica 50 mg capsule RxNorm: 442954 Take 1 Capsule(s) Oral QAM every morning 06/10/19 21 Inactive hydrocortisone 2.5 % topical cream RxNorm: 333253 Apply to bilateral groin creases Topical BID 05/15/20 20 021 Inactive clotrimazole 1 % topical cream RxNorm: 201728 Apply to bilateral groin areas Topical BID 05/15/20 20 021 Inactive Lyrica 50 mg capsule RxNorm: 265784 Take 1 Capsule(s) Oral QAM every morning 05/14/20 20 Inactive Lyrica 100 mg capsule RxNorm: 436204 Take 1 Capsule(s) Oral QHS every night [...] Inactive Nystop 100,000 unit/gram topical powder RxNorm: 180537 Apply to abd folds, under breasts and L side of groin Topical BID x 14 days, then BID PRN 04/08/20 20 021 Inactive dx: yeast dermatitis Lyrica 100 mg capsule RxNorm: 221982 Take 1 Capsule(s) Oral QHS every night at bedtime 03/13/20 20 Inactive Lyrica 50 mg capsule RxNorm: 076572 Take 1 Capsule(s) Oral QAM every morning 03/13/20 20 Inactive ketoconazole 2 % shampoo RxNorm: 558983 Apply Topical two times a week with showers 03/11/20 Inactive cholecalciferol (vitamin D3) 50 mcg (2,000 unit) tablet RxNorm: 823940 Take 1 Tablet(s) Oral QD 03/11/20 20 Inactive Zetia 10 mg tablet RxNorm: 624889 Take 1 Tablet(s) Oral QD 03/07/20 20 Inactive Zetia 10 mg tablet RxNorm: 998630 Take 1 Tablet(s) Oral QD 03/07/20 20 Inactive Lyrica 50 mg capsule RxNorm: 677657 Take 1 Capsule(s) Oral QAM every morning 02/15/20 20 Inactive Lyrica 100 mg capsule RxNorm: 966729 Take 1 Capsule(s) Oral QHS every night at bedtime 02/15/20 20 Inactive Lyrica 100 mg capsule RxNorm: 938044 Take 1 Capsule(s) Oral QHS every night at bedtime 02/15/20 20 Inactive Lyrica 50 mg capsule RxNorm: 292388 Take 1 Capsule(s) Oral QAM every morning 02/15/20 20 Inactive venlafaxine ER 75 mg capsule,extended release 24 hr RxNorm: 866044 Take 3 Capsule(s) Oral QD 06/12/19 Active polyethylene glycol 3350 17 gram/dose oral powder RxNorm: 694712 Take 17=1 capful Gram(s) Oral BID as needed mix with 4-8oz of liquid 06/12/19 Active Levemir FlexTouch U-100 Insulin 100 unit/mL (3 mL) subcutaneous pen RxNorm: 708599 Inject 80 Unit(s) Subcutaneous BID 07/14/19 023 Inactive loperamide 2 mg capsule RxNorm: 685316 Take 1 Capsule(s) Oral QID as needed 06/12/19 Active Novolog Flexpen U-100 Insulin aspart 100 unit/mL (3 mL) subcutaneous RxNorm: 8850933 Insert 30 Unit(s) Subcutaneous TID with meals [...] of [facility] WPtel: [address] [facility], [address] [id number] Referral Records Received 09/21/2022 Referral: [facility] WPtel: [address] [id number] [place] Referral Completed 05/28/2021 Referral: General Cardiology Referral Complet ed 01/03/2021 Referral: General Psychologist Referral Close d Instructions Comment Date Leonid is a?? Male being seen living at [facility]. Initial [facility] visit 01/2020. PMHx including DMII, CAD w/ 5 stents, Depression, Seizure Disorder and CKD stage 3. He moved into [facility] in 12/2019 but after a hospitalization 05/2021 he moved to the [facility] to have closer nursing attention.??Sister Jyotsna involved in his care cell# [phone]??Guardian: Don (tapan met in person 09/01/21), now has Lexii (same group as don)Lab Schedule: * 10/06/2022
--- OUTSIDE RECORDS SUMMARY | 2022-11-09 23:36 | XMS_ITS | CCD ---
Author Name Unknown Organization Unknown Care Team Providers Care Clinical Haematologist Name Role Phone Tapan Shirley PA-C Primary Care Provider Unavailabl e Tapan Shirley PA-C Chronic Care Management Unavaila ble Summary Purpose DataExchange Insurance Providers Payer name Policy type / Coverage type Covered green party ID Effective Begin Date Effective End Date [place] [id number] [place] [id number] Unknown Unknown Family history Sister Brittany Suggs [...] Snf 09/03/[address]: 2307871 Non-Smoker / No History of Smoking 09/02/[address]: 402119748 No Alcohol Consum ption 09/02/2020 Allergies, Adverse Reactions, Alerts Substance Reaction Codes Entered Date Inactivated Date Status LISINOPRIL RxNorm: 10990 02/12/2020 No Inactive Da te Active Metformin [...] 05/01/2022 Active Coronary artery disease invo lving [place] coronary artery of [place] heart, angina presence unspecified ICD-10: I25.10 ICD-9: [...] Fill Instructions Lyrica 150 mg capsule RxNorm: 804070 Take 1 Capsule(s) Oral QHS every night at bedtime 07/19/19 23 023 Inactive d/c 100mg dose Diflucan 150 mg tablet RxNorm: 074888 Take 1 Tablet(s) Oral QD repeat on day 3 and 6 07/19/19 23 023 Inactive pregabalin 100 mg capsule RxNorm: 762797 Take 1 Capsule(s) Oral QAM every morning 07/19/19 23 023 Inactive gatifloxacin 0.5 % eye drops RxNorm: 042438 Instill 1 Drop(s) as directed TID Instill 1 drop in to affected eye(s) starting 1 day prior to surgery and continue until gone (do not exceed 4 weeks). 07/13/19 23 023 Inactive carvedilol 25 mg tablet RxNorm: 849692 2 Tablet(s) Oral BID 07/13/19 23 023 Inactive Humulin R Regular U-100 Insulin 100 unit/mL injection solution RxNorm: 107963 85 Unit(s) Injection TID 07/13/19 23 023 Inactive ketorolac 0.5 % eye drops RxNorm: 287713 Instill 1 Drop(s) as directed QID Instill 1 drop into affected eye(s) 4 times daily starting 1 day prior to surgery and continue until gone (do not exceed 4 weeks). 07/13/19 23 023 Inactive Diflucan 150 mg tablet RxNorm: 143319 Take 1 Tablet(s) Oral QD repeat on day 3 and 6 06/30/19 23 023 Inactive Accu-Chek Guide test strips RxNorm: Use 1 Test Strip QID Use 1 test strip to monitor blood glucose 4 times daily and as needed. Dx:E11.42. 06/23/19 23 023 Inactive ok to substitute with any covered alternative test strip dextromethorphan-gu aifenesin 10 mg-100 mg/5 mL oral liquid RxNorm: 467576 Take 10 Milliliter(s) Oral every 4 hours as needed for cough 06/19/19 23 023 Inactive dextromethorphan-gu aifenesin 10 mg-100 mg/5 mL oral liquid RxNorm: 202959 Take 10 Milliliter(s) Oral every 4 hours as needed for cough 06/19/19 23 023 Inactive Lyrica 150 mg capsule RxNorm: 921969 Take 1 Capsule(s) Oral QHS every night at bedtime 06/18/19 23 023 Inactive d/c 100mg dose aripiprazole 15 mg tablet RxNorm: 987569 1/2 TAB (7.5MG) ORALLY DAILY (DX:MAJOR DEPRESSIVE DISORDER) 06/05/19 23 023 Inactive pregabalin 100 mg capsule RxNorm: 811258 1 Capsule(s) Oral QAM every morning 06/02/19 23 023 Inactive Banophen 50 mg capsule RxNorm: 4421575 Take 1 Capsule(s) Oral Q6H every 6 hours as needed 01/03/20 23 No Stop Date Active Novolog Flexpen U-100 Insulin aspart 100 unit/mL (3 mL) subcutaneous RxNorm: 7623883 Inject 10 Unit(s) Subcutaneous QHS every night at bedtime with nighttime snack 04/08/20 Inactive Novolog Flexpen U-100 Insulin aspart 100 unit/mL (3 mL) subcutaneous RxNorm: 1207159 Inject 42 Unit(s) Subcutaneous TID in addition to sliding scale 04/08/20 Inactive d/c 36u albuterol sulfate HFA 90 mcg/actuation aerosol inhaler RxNorm: 2645321 Take 2 Puff(s) Inhalation Q4H every four hours as needed as needed for SOB, cough, or wheezing 04/07/20 030 Active Banophen 50 mg capsule RxNorm: 0076072 Take 1 Capsule(s) Oral Q6H every 6 hours as needed 04/06/20 023 Inactive diphenhydramine 50 mg tablet RxNorm: 1340766 Take 1 Tablet(s) Oral Q6H every 6 hours as needed 04/06/20 022 Inactive diphenhydramine 50 mg tablet RxNorm: 0706869 1 Tablet(s) Oral Q6H every 6 hours as needed 04/06/20 022 Inactive Abilify 15 mg tablet RxNorm: 496217 1/2 Tablet(s) Oral QD 03/10/20 023 Inactive Shingrix (PF) 50 mcg/0.5 mL intramuscular suspension, kit RxNorm: 0998393 Administer 1/2 Milliliter(s) Intramuscular QD one time shingrix step 2 ( step 1 given 11/04/21) WITH needle - Nursing please administer upon arrival and once administered post a bridge message with date of administration, pediatrician managing partner, expiration date, and lot# so we can update [facility] 02/18/20 022 Inactive dispense with needle Shingrix (PF) 50 mcg/0.5 mL intramuscular suspension, kit RxNorm: 2613458 Administer 1/2 Milliliter(s) Intramuscular QD one time shingrix step 2 ( step 1 given 11/04/21) WITH needle - Nursing please administer upon arrival and once administered post a bridge message with date of administration, pediatrician managing partner, expiration date, and lot# so we can update [facility] 02/18/20 22 Inactive dispense with needle acetaminophen 500 mg tablet RxNorm: 440404 Take 1 Tablet(s) Oral TID 01/08/20 22 023 Active d/c PRN order polyethylene glycol 3350 17 gram/dose oral powder RxNorm: 406771 Take 17=1 capful Gram(s) Oral QD mix with 4-8oz of liquid 01/08/20 22 023 Active take this in addition to BID prn order Lyrica 100 mg capsule RxNorm: 925711 Take 1 Capsule(s) Oral QAM every morning 01/08/20 22 022 Inactive d/c 50mg dose Lyrica 150 mg capsule RxNorm: 675597 Take 1 Capsule(s) Oral QHS every night at bedtime 01/08/20 22 023 Inactive d/c 100mg dose Abilify 5 mg tablet RxNorm: 275804 Take 1 Tablet(s) Oral QD take 1 tab po QD #30 refill 5 dx: MDD 12/12/19 22 022 Inactive Abilify 5 mg tablet RxNorm: 305883 Take 1 Tablet(s) Oral QD take 1 tab po QD #30 refill 5 dx: MDD 12/12/19 22 022 Inactive chlorthalidone 25 mg tablet RxNorm: 046022 Take 1 Tablet(s) Oral QAM every morning 12/10/19 22 023 Active Novolog Flexpen U-100 Insulin aspart 100 unit/mL (3 mL) subcutaneous RxNorm: 7254402 Inject 42 Unit(s) Subcutaneous TID in addition to sliding scale 12/10/19 22 022 Inactive d/c 36u pregabalin 50 mg capsule RxNorm: 838051 Take 1 Capsule(s) Oral QAM every morning 11/12/19 22 022 Inactive tetanus-diphtheria toxoids-Td 2 Lf unit-2 Lf unit/0.5 mL IM suspension RxNorm: 139 Take 0.5 Miscellaneous Intramuscular 11/12/19 22 022 Inactive need tdap - nursing to administer upon arrival pregabalin 50 mg capsule RxNorm: 011856 Take 1 Capsule(s) Oral QAM every morning 10/16/19 22 022 Inactive pregabalin 50 mg capsule RxNorm: 521296 Take 1 Capsule(s) Oral QAM every morning 10/16/19 22 022 Inactive pregabalin 50 mg capsule RxNorm: 181664 1 Capsule(s) Oral QAM every morning 10/15/19 22 022 Inactive Shingrix (PF) 50 mcg/0.5 mL intramuscular suspension, kit RxNorm: 0605259 Administer 1/2 Milliliter(s) Intramuscular one time Nursing please administer upon arrival and once administered post a bridge message with date of administration, pediatrician managing partner, 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 10/09/19 22 022 Inactive shingrix step 1 Shingrix (PF) 50 mcg/0.5 mL intramuscular suspension, kit RxNorm: 0129653 Administer 1/2 Milliliter(s) Intramuscular one time Nursing please administer upon arrival and once administered post a bridge message with date of administration, pediatrician managing partner, 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 10/09/19 22 022 Inactive shingrix step 1 cholecalciferol (vitamin D3) 1,250 mcg (50,000 unit) capsule RxNorm: 194849 Take 1 Capsule(s) Oral QW once a [...] aspart 100 unit/mL (3 mL) subcutaneous RxNorm: 4215554 Inject 10 Unit(s) Subcutaneous QHS every night at bedtime with nighttime snack 10/08/19 22 Inactive Shingrix (PF) 50 mcg/0.5 mL intramuscular suspension, kit RxNorm: 0723013 ADMINISTER 2-DOSE SERIES PER CDC GUIDELINES 10/08/19 22 Active Shingrix (PF) 50 mcg/0.5 mL intramuscular suspension, kit RxNorm: 6952198 ADMINISTER 2-DOSE SERIES PER CDC GUIDELINES 10/08/19 22 Inactive Novolog Flexpen U-100 Insulin aspart 100 unit/mL (3 mL) subcutaneous RxNorm: 3740846 Inject 36 Unit(s) Subcutaneous TID in addition to sliding scale 10/08/19 Inactive Novofine Autocover 30 gauge x 1/3 needle RxNorm: Use 1 Miscellaneous UD as directed Use 1 needle as directed to administer insulin 5 times a day Dx:E11.42. 10/03/19 Inactive ok to substitute with any covered alternative pen needle benzoyl peroxide 10 % topical cleanser RxNorm: 508509 Apply 1 Application Topical QD apply to face, wash rinse and dry once daily (may change to QOD if drying) 08/19/19 022 Inactive (%covered by insurance) #60ml refill 11 dx: acne benzoyl peroxide 10 % topical cleanser RxNorm: 694376 Apply 1 Application Topical QD apply to face, wash rinse and dry once daily (may change to QOD if drying) 08/19/19 22 022 Inactive (%covered by insurance) #60ml refill 11 dx: acne benzoyl peroxide 10 % topical cleanser RxNorm: 512927 Apply 1 Application Topical QD apply to face, wash rinse and dry once daily (may change to QOD if drying) 08/19/19 22 022 Inactive (%covered by insurance) #60ml refill 11 dx: acne Lyrica 50 mg capsule RxNorm: 850389 Take 1 Capsule(s) Oral QAM every morning Take 1 capsule by mouth once daily 08/19/19 22 Inactive benzoyl peroxide 10 % topical cleanser RxNorm: 884646 Apply 1 Application Topical QD apply to face, wash rinse and dry once daily (may change to QOD if drying) 08/19/19 22 Inactive (%covered by insurance) #60ml refill 11 dx: acne Lyrica 100 mg capsule RxNorm: 449363 Take 1 Capsule(s) Oral QHS every night at bedtime Take 1 capsule by mouth once daily at bedtime 08/19/19 22 022 Inactive Lyrica 100 mg capsule RxNorm: 957086 Take 1 Capsule(s) Oral QHS every night at bedtime Take 1 capsule by mouth once daily at bedtime 08/16/19 22 022 Inactive Lyrica 50 mg capsule RxNorm: 291235 Take 1 Capsule(s) Oral QAM every morning Take 1 capsule by mouth once daily 08/16/19 22 022 Inactive Levemir FlexTouch U-100 Insulin 100 unit/mL (3 mL) subcutaneous pen RxNorm: 138214 Inject 86 Unit(s) Subcutaneous BID 08/05/19 22 022 Inactive d/c 83units BID Lyrica 100 mg capsule RxNorm: 884813 Take 1 Capsule(s) Oral QHS every night at bedtime Take 1 capsule by mouth once daily at bedtime 07/14/19 22 022 Inactive Lyrica 50 mg capsule RxNorm: 111595 Take 1 Capsule(s) Oral QAM every morning Take 1 capsule by mouth once daily 07/14/19 22 022 Inactive Levemir FlexTouch U-100 Insulin 100 unit/mL (3 mL) subcutaneous pen RxNorm: 280823 Inject 83 Unit(s) Subcutaneous BID 07/08/19 22 [...] 30 mg tablet,extended release 24 hr RxNorm: 613917 Take 1 Tablet(s) Oral QD 05/05/20 No Stop Date Active hydralazine 50 mg tablet RxNorm: 809605 Take 1 Tablet(s) Oral QID 05/05/20 21 022 Inactive venlafaxine ER 225 mg tablet,extended release 24 hr RxNorm: 803838 Take 1 Tablet(s) Oral QD 05/05/20 21 021 Inactive venlafaxine ER 225 mg tablet,extended release 24 hr RxNorm: 446162 Take 1 Tablet(s) Oral QD 05/05/20 21 022 Inactive hydralazine 50 mg tablet RxNorm: 074234 Take 1 Tablet(s) Oral QID 05/05/20 21 Inactive aspirin 81 mg tablet,delayed release RxNorm: 901047 Take 1 Tablet(s) Oral QD 03/31/20 21 022 Inactive Zetia 10 mg tablet RxNorm: 596277 Take 1 Tablet(s) Oral QD 03/31/20 022 Inactive Vitamin D2 1,250 mcg (50,000 unit) capsule RxNorm: 9301633 Take 1 Capsule(s) Oral QW once a week x 12 weeks 03/31/20 Inactive Vitamin D2 1,250 mcg (50,000 unit) capsule RxNorm: 9443116 Take 1 Capsule(s) Oral QW once a week 03/31/20 Inactive Zetia 10 mg tablet RxNorm: 959829 Take 1 Tablet(s) Oral QD 03/31/20 Inactive hydralazine 25 mg tablet RxNorm: 576328 Take 1 Tablet(s) Oral QID 03/31/20 Inactive hydralazine 25 mg tablet RxNorm: 980553 Take 1 Tablet(s) Oral QID 03/31/20 Inactive hydralazine 10 mg tablet RxNorm: 563294 Take 1 Tablet(s) Oral QID 03/03/20 021 Inactive cephalexin 500 mg tablet RxNorm: 429399 Take 1 Tablet(s) Oral QID 02/27/20 021 Inactive cephalexin 500 mg tablet RxNorm: 827085 Take 1 Tablet(s) Oral QID 02/27/20 Inactive lisinopril 40 mg tablet RxNorm: 706201 Take 1 Tablet(s) Oral QD 02/11/20 023 Inactive Eliquis 5 mg tablet RxNorm: 5600106 Take 1 Tablet(s) Oral BID 01/05/20 022 Inactive Eliquis 5 mg tablet RxNorm: 0747723 Take 2 Tablet(s) Oral QD 01/01/20 021 Inactive Lyrica 50 mg capsule RxNorm: 626411 Take 1 Capsule(s) Oral QAM every morning 12/24/19 021 Inactive Lyrica 100 mg capsule RxNorm: 283062 Take 1 Capsule(s) Oral QHS every night at bedtime 12/24/19 021 Inactive clotrimazole 1 % topical cream RxNorm: 618186 Apply to right foot and toes Topical BID 12/04/19 21 023 Inactive metoprolol succinate ER 200 mg tablet,extended release 24 hr RxNorm: 043520 Take 1 Tablet(s) Oral QD 12/04/19 21 023 Inactive ciprofloxacin 500 mg tablet RxNorm: 078655 Take 1 Tablet(s) Oral QD 11/30/19 021 Inactive DX ofloxacin otic drops Accu-Chek Guide test strips RxNorm: USE 1 TO CHECK GLUCOSE 4 TIMES DAILY AND NEEDED 11/15/19 21 023 Inactive Blood Glucose Test strips RxNorm: Use 1 Test Strip QID at PRN 11/05/19 21 023 Inactive E11.42 lisinopril 30 mg tablet RxNorm: 371670 Take 1 Tablet(s) Oral QD 10/30/19 021 Inactive lisinopril 20 mg tablet RxNorm: 805793 Take 1 Tablet(s) Oral QD 10/23/19 021 Inactive lisinopril 20 mg tablet RxNorm: 079510 Take 1 Tablet(s) Oral QD 10/23/19 021 Inactive lisinopril 10 mg tablet RxNorm: 447421 Take 1 Tablet(s) Oral QD 10/02/19 021 Inactive icosapent ethyl 1 gram capsule RxNorm: 3722056 Take 2 Capsule(s) (2 gm) Oral BID with meals 09/12/19 022 Inactive Okay to dispense one 2gm tab if you have that available. icosapent ethyl 1 gram capsule RxNorm: 2860702 Take 2 Capsule(s) Oral BID 09/12/19 021 Inactive Okay to dispense one 2gm tab if you have that available. amlodipine 10 mg tablet RxNorm: 334767 Take 1 Tablet(s) Oral QD 09/04/19 21 022 Inactive aspirin 81 mg tablet,delayed release RxNorm: 000409 Take 1 Tablet(s) Oral QD 09/04/19 21 021 Inactive Levemir FlexTouch U-100 Insulin 100 unit/mL (3 mL) subcutaneous pen RxNorm: 789223 Inject 150 Unit(s) Subcutaneous BID 09/04/19 022 Inactive venlafaxine ER 150 mg tablet,extended release 24 hr RxNorm: 101438 Take 1 Tablet(s) Oral QD 09/04/19 021 Inactive clotrimazole-betame thasone 1 %-0.05 % topical cream RxNorm: 502343 Apply to rash on red area on left abdomen/chest Topical BID 08/10/19 21 Inactive amlodipine 5 mg tablet RxNorm: 840047 Take 1 Tablet(s) Oral QD 07/31/19 Inactive cephalexin 500 mg tablet RxNorm: 784757 Take 1 Tablet(s) Oral BID BID - Twice Daily 07/31/19 021 Inactive Start 08/01/20 pantoprazole 40 mg tablet,delayed release RxNorm: 483426 Take 1 Tablet(s) Oral QAM every morning 07/08/19 022 Inactive senna 8.6 mg tablet RxNorm: 632794 Take 1 Tablet(s) Oral QD 07/08/19 022 Inactive pravastatin 80 mg tablet RxNorm: 270764 Take 1 Tablet(s) Oral QHS every night at bedtime 07/08/19 022 Inactive carbamazepine 200 mg tablet RxNorm: 285378 Take 1 Tablet(s) Oral BID 07/08/19 022 Inactive torsemide 20 mg tablet RxNorm: 541507 Take 1 Tablet(s) Oral QD 07/08/19 023 Inactive clopidogrel 75 mg tablet RxNorm: 501625 Take 1 Tablet(s) Oral QD 07/08/19 021 Inactive Blood Glucose Test strips RxNorm: Use 1 Test Strip QID at PRN 07/08/19 21 021 Inactive E11.42 Novolog Flexpen U-100 Insulin aspart 100 unit/mL (3 mL) subcutaneous RxNorm: 4637722 Administer per sliding scale Milliliter(s) Subcutaneous TID 151-200: 10 u; 201-250: 20 u; 251-300: 30 u; 301-350: 40 u; 351-400: 50 u. 07/08/19 022 Inactive lisinopril 5 mg tablet RxNorm: 943388 Take 1 Tablet(s) Oral QD 07/08/19 21 021 Inactive Novolog Flexpen U-100 Insulin aspart 100 unit/mL (3 mL) subcutaneous RxNorm: 8359979 Inject 85 Unit(s) Subcutaneous TID 07/08/19 022 Inactive clotrimazole 1 % topical cream RxNorm: 800837 Apply to bilateral groin areas Topical BID 07/08/19 21 Inactive metoprolol succinate ER 200 mg tablet,extended release 24 hr RxNorm: 932738 Take 1 Tablet(s) Oral QD 07/08/19 21 021 Inactive Vitamin D3 25 mcg (1,000 unit) tablet RxNorm: 360663 Take 1 Tablet(s) Oral QD 07/08/19 021 Inactive isosorbide dinitrate 30 mg tablet RxNorm: 616222 Take 1 Tablet(s) Oral QD 07/08/19 021 Inactive Levemir FlexTouch U-100 Insulin 100 unit/mL (3 mL) subcutaneous pen RxNorm: 527335 Inject 140 Unit(s) Subcutaneous BID 07/08/19 Inactive venlafaxine 75 mg tablet RxNorm: 134105 Take 1 Tablet(s) Oral QD 07/08/19 021 Inactive acetaminophen 500 mg tablet RxNorm: 741442 Take 1 Tablet(s) Oral TID as needed for headache 06/18/19 021 Inactive acetaminophen 500 mg tablet RxNorm: 889090 Take 1 Tablet(s) Oral TID as needed for headache 06/18/19 021 Inactive Lyrica 100 mg capsule RxNorm: 466673 Take 1 Capsule(s) Oral QHS every night at bedtime 06/11/19 021 Inactive Lyrica 50 mg capsule RxNorm: 539851 Take 1 Capsule(s) Oral QAM every morning 06/10/19 021 Inactive hydrocortisone 2.5 % topical cream RxNorm: 163661 Apply to bilateral groin creases Topical BID 05/15/20 20 021 Inactive clotrimazole 1 % topical cream RxNorm: 714349 Apply to bilateral groin areas Topical BID 05/15/20 20 Inactive Lyrica 50 mg capsule RxNorm: 900911 Take 1 Capsule(s) Oral QAM every morning 05/14/20 20 Inactive Lyrica 100 mg capsule RxNorm: 756846 Take 1 Capsule(s) Oral QHS every night [...] Inactive Nystop 100,000 unit/gram topical powder RxNorm: 853312 Apply to abd folds, under breasts and L side of groin Topical BID x 14 days, then BID PRN 04/08/20 20 021 Inactive dx: yeast dermatitis Lyrica 100 mg capsule RxNorm: 657527 Take 1 Capsule(s) Oral QHS every night at bedtime 03/13/20 20 Inactive Lyrica 50 mg capsule RxNorm: 985997 Take 1 Capsule(s) Oral QAM every morning 03/13/20 20 Inactive ketoconazole 2 % shampoo RxNorm: 378598 Apply Topical two times a week with showers 03/11/20 20 Inactive cholecalciferol (vitamin D3) 50 mcg (2,000 unit) tablet RxNorm: 577029 Take 1 Tablet(s) Oral QD 03/11/20 Inactive Zetia 10 mg tablet RxNorm: 546564 Take 1 Tablet(s) Oral QD 03/07/20 Inactive Zetia 10 mg tablet RxNorm: 284325 Take 1 Tablet(s) Oral QD 03/07/20 20 Inactive Lyrica 50 mg capsule RxNorm: 543491 Take 1 Capsule(s) Oral QAM every morning 02/15/20 20 Inactive Lyrica 100 mg capsule RxNorm: 182606 Take 1 Capsule(s) Oral QHS every night at bedtime 02/15/20 Inactive Lyrica 100 mg capsule RxNorm: 358022 Take 1 Capsule(s) Oral QHS every night at bedtime 02/15/20 Inactive Lyrica 50 mg capsule RxNorm: 767171 Take 1 Capsule(s) Oral QAM every morning 02/15/20 Inactive venlafaxine ER 75 mg capsule,extended release 24 hr RxNorm: 489065 Take 3 Capsule(s) Oral QD 06/12/19 Active polyethylene glycol 3350 17 gram/dose oral powder RxNorm: 578634 Take 17=1 capful Gram(s) Oral BID as needed mix with 4-8oz of liquid 06/12/19 Active loperamide 2 mg capsule RxNorm: 450761 Take 1 Capsule(s) Oral QID as needed 06/12/19 Active Levemir FlexTouch U-100 Insulin 100 unit/mL (3 mL) subcutaneous pen RxNorm: 687371 Inject 80 Unit(s) Subcutaneous BID 07/14/19 23 023 Inactive Novolog Flexpen U-100 Insulin aspart 100 unit/mL (3 mL) subcutaneous RxNorm: 3832105 Insert 30 Unit(s) Subcutaneous TID with meals [...] Codes Status Date Referral: [facility] WPtel: [address], [address] [id number] [place] Referral Records Received 09/21/2022 Referral: [facility] WPtel: [address] [id number] [place] Referral Completed 05/28/2021 Referral: General Cardiology [...] attention.??Sister Jyotsna involved in his care cell# [phone]??Guardian: Don (tapan met in person 09/01/21), now has Lexii (same group as don)Lab Schedule: * 10/06/2022
--- OUTSIDE RECORDS SUMMARY | 2022-11-09 23:36 | XMS_ITS | CCD ---
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 Name Role Phone Tapan Shirley PA-C Primary Care Provider Unavailabl e Tapan Shirley PA-C Chronic Care Management Unavaila ble Summary Purpose DataExchange Insurance Providers Payer name Policy type / Coverage type Covered democrat ID Effective Begin Date Effective End Date Medicare [place] Medicare Part B [id number] Unknown Unknown Medicaid [place] Medicare Part B [id number] Unknown Unknown Family history Sister Brittany Suggs [...] Alf 09/03/[address]: 2233028 Non-Smoker / No History of Smoking 09/02/[address]: 735098170 No Alcohol Consum ption 09/02/2020 Allergies, Adverse Reactions, Alerts Substance Reaction Codes Entered Date Inactivated Date Status LISINOPRIL RxNorm: 27851 02/12/2020 No Inactive Da te Active Metformin [...] 05/01/2022 Active Coronary artery disease invo lving red [...] Instructions gatifloxacin 0.5 % eye drops RxNorm: 494991 Instill 1 Drop(s) as directed TID Instill 1 drop in to affected eye(s) starting 1 day prior to surgery and continue until gone (do not exceed 4 weeks). 07/13/19 23 023 Inactive carvedilol 25 mg tablet RxNorm: 234872 2 Tablet(s) Oral BID 07/13/19 23 023 Inactive Humulin R Regular U-100 Insulin 100 unit/mL injection solution RxNorm: 623430 85 Unit(s) Injection TID 07/13/19 23 023 Inactive ketorolac 0.5 % eye drops RxNorm: 661549 Instill 1 Drop(s) as directed QID Instill 1 drop into affected eye(s) 4 times daily starting 1 day prior to surgery and continue until gone (do not exceed 4 weeks). 07/13/19 23 023 Inactive Diflucan 150 mg tablet RxNorm: 964333 Take 1 Tablet(s) Oral QD repeat on day 3 and 6 06/30/19 23 023 Inactive Accu-Chek Guide test strips RxNorm: Use 1 Test Strip QID Use 1 test strip to monitor blood glucose 4 times daily and as needed. Dx:E11.42. 06/23/19 23 023 Inactive ok to substitute with any covered alternative test strip dextromethorphan-gu aifenesin 10 mg-100 mg/5 mL oral liquid RxNorm: 138137 Take 10 Milliliter(s) Oral every 4 hours as needed for cough 06/19/19 23 023 Inactive dextromethorphan-gu aifenesin 10 mg-100 mg/5 mL oral liquid RxNorm: 960382 Take 10 Milliliter(s) Oral every 4 hours as needed for cough 06/19/19 23 023 Inactive Lyrica 150 mg capsule RxNorm: 118407 Take 1 Capsule(s) Oral QHS every night at bedtime 06/18/19 23 023 Inactive d/c 100mg dose aripiprazole 15 mg tablet RxNorm: 183762 1/2 TAB (7.5MG) ORALLY DAILY (DX:MAJOR DEPRESSIVE DISORDER) 06/05/19 23 023 Inactive pregabalin 100 mg capsule RxNorm: 149173 1 Capsule(s) Oral QAM every morning 06/02/19 23 023 Inactive Banophen 50 mg capsule RxNorm: 3933859 Take 1 Capsule(s) Oral Q6H every 6 hours as needed 05/19/19 23 No Stop Date Active Novolog Flexpen U-100 Insulin aspart 100 unit/mL (3 mL) subcutaneous RxNorm: 5725532 Inject 10 Unit(s) Subcutaneous QHS every night at bedtime with nighttime snack 04/08/20 22 022 Inactive Novolog Flexpen U-100 Insulin aspart 100 unit/mL (3 mL) subcutaneous RxNorm: 7738493 Inject 42 Unit(s) Subcutaneous TID in addition to sliding scale 04/08/20 022 Inactive d/c 36u albuterol sulfate HFA 90 mcg/actuation aerosol inhaler RxNorm: 1907801 Take 2 Puff(s) Inhalation Q4H every four hours as needed as needed for SOB, cough, or wheezing 04/07/20 030 Active Banophen 50 mg capsule RxNorm: 1722845 Take 1 Capsule(s) Oral Q6H every 6 hours as needed 04/06/20 023 Inactive diphenhydramine 50 mg tablet RxNorm: 0107208 Take 1 Tablet(s) Oral Q6H every 6 hours as needed 04/06/20 022 Inactive diphenhydramine 50 mg tablet RxNorm: 3617427 1 Tablet(s) Oral Q6H every 6 hours as needed 04/06/20 022 Inactive Abilify 15 mg tablet RxNorm: 548409 1/2 Tablet(s) Oral QD 03/10/20 023 Inactive Shingrix (PF) 50 mcg/0.5 mL intramuscular suspension, kit RxNorm: 9451235 Administer 1/2 Milliliter(s) Intramuscular QD one time shingrix step 2 ( step 1 given 11/04/21) WITH needle - Nursing please administer upon arrival and once administered post a bridge message with date of administration, 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, expiration date, and lot# so we can update [facility] 02/18/20 22 022 Inactive dispense with needle Shingrix (PF) 50 mcg/0.5 mL intramuscular suspension, kit RxNorm: 0580136 Administer 1/2 Milliliter(s) Intramuscular QD one time shingrix step 2 ( step 1 given 11/04/21) WITH needle - Nursing please administer upon arrival and once administered post a bridge message with date of administration, 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, expiration date, and lot# so we can update [facility] 02/18/20 22 022 Inactive dispense with needle acetaminophen 500 mg tablet RxNorm: 713119 Take 1 Tablet(s) Oral TID 01/08/20 22 023 Active d/c PRN order polyethylene glycol 3350 17 gram/dose oral powder RxNorm: 819467 Take 17=1 capful Gram(s) Oral QD mix with 4-8oz of liquid 01/08/20 023 Active take this in addition to BID prn order Lyrica 100 mg capsule RxNorm: 564951 Take 1 Capsule(s) Oral QAM every morning 01/08/20 22 022 Inactive d/c 50mg dose Lyrica 150 mg capsule RxNorm: 869317 Take 1 Capsule(s) Oral QHS every night at bedtime 01/08/20 22 023 Inactive d/c 100mg dose Abilify 5 mg tablet RxNorm: 820618 Take 1 Tablet(s) Oral QD take 1 tab po QD #30 refill 5 dx: MDD 12/12/19 22 022 Inactive Abilify 5 mg tablet RxNorm: 575628 Take 1 Tablet(s) Oral QD take 1 tab po QD #30 refill 5 dx: MDD 12/12/19 22 022 Inactive chlorthalidone 25 mg tablet RxNorm: 991529 Take 1 Tablet(s) Oral QAM every morning 12/10/19 22 023 Active Novolog Flexpen U-100 Insulin aspart 100 unit/mL (3 mL) subcutaneous RxNorm: 4957176 Inject 42 Unit(s) Subcutaneous TID in addition to sliding scale 12/10/19 22 Inactive d/c 36u pregabalin 50 mg capsule RxNorm: 115506 Take 1 Capsule(s) Oral QAM every morning 11/12/19 22 022 Inactive tetanus-diphtheria toxoids-Td 2 Lf unit-2 Lf unit/0.5 mL IM suspension RxNorm: 139 Take 0.5 Miscellaneous Intramuscular 11/12/19 22 022 Inactive need tdap - nursing to administer upon arrival pregabalin 50 mg capsule RxNorm: 255347 Take 1 Capsule(s) Oral QAM every morning 10/16/19 22 022 Inactive pregabalin 50 mg capsule RxNorm: 386863 Take 1 Capsule(s) Oral QAM every morning 10/16/19 22 022 Inactive pregabalin 50 mg capsule RxNorm: 829091 1 Capsule(s) Oral QAM every morning 10/15/19 22 Inactive Shingrix (PF) 50 mcg/0.5 mL intramuscular suspension, kit RxNorm: 6003464 Administer 1/2 Milliliter(s) Intramuscular one time Nursing please administer upon arrival and once administered post a bridge message with date of administration, 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, 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 10/09/19 22 022 Inactive shingrix step 1 Shingrix (PF) 50 mcg/0.5 mL intramuscular suspension, kit RxNorm: 5241743 Administer 1/2 Milliliter(s) Intramuscular one time Nursing please administer upon arrival and once administered post a bridge message with date of administration, 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, 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 10/09/19 22 022 Inactive shingrix step 1 cholecalciferol (vitamin D3) 1,250 mcg (50,000 unit) capsule RxNorm: 470127 Take 1 Capsule(s) Oral QW once a [...] aspart 100 unit/mL (3 mL) subcutaneous RxNorm: 4170953 Inject 10 Unit(s) Subcutaneous QHS every night at bedtime with nighttime snack 10/08/19 22 022 Inactive Shingrix (PF) 50 mcg/0.5 mL intramuscular suspension, kit RxNorm: 5340842 ADMINISTER 2-DOSE SERIES PER CDC GUIDELINES 10/08/19 22 022 Active Shingrix (PF) 50 mcg/0.5 mL intramuscular suspension, kit RxNorm: 2206806 ADMINISTER 2-DOSE SERIES PER CDC GUIDELINES 10/08/19 22 Inactive Novolog Flexpen U-100 Insulin aspart 100 unit/mL (3 mL) subcutaneous RxNorm: 6882066 Inject 36 Unit(s) Subcutaneous TID in addition to sliding scale 10/08/19 22 Inactive Novofine Autocover 30 gauge x 1/3 needle RxNorm: Use 1 Miscellaneous UD as directed Use 1 needle as directed to administer insulin 5 times a day Dx:E11.42. 10/03/19 22 Inactive ok to substitute with any covered alternative pen needle benzoyl peroxide 10 % topical cleanser RxNorm: 418155 Apply 1 Application Topical QD apply to face, wash rinse and dry once daily (may change to QOD if drying) 08/19/19 022 Inactive (%covered by insurance) #60ml refill 11 dx: acne benzoyl peroxide 10 % topical cleanser RxNorm: 420601 Apply 1 Application Topical QD apply to face, wash rinse and dry once daily (may change to QOD if drying) 08/19/19 22 022 Inactive (%covered by insurance) #60ml refill 11 dx: acne benzoyl peroxide 10 % topical cleanser RxNorm: 501887 Apply 1 Application Topical QD apply to face, wash rinse and dry once daily (may change to QOD if drying) 08/19/19 22 022 Inactive (%covered by insurance) #60ml refill 11 dx: acne Lyrica 50 mg capsule RxNorm: 354424 Take 1 Capsule(s) Oral QAM every morning Take 1 capsule by mouth once daily 08/19/19 22 022 Inactive benzoyl peroxide 10 % topical cleanser RxNorm: 639850 Apply 1 Application Topical QD apply to face, wash rinse and dry once daily (may change to QOD if drying) 08/19/19 22 022 Inactive (%covered by insurance) #60ml refill 11 dx: acne Lyrica 100 mg capsule RxNorm: 138506 Take 1 Capsule(s) Oral QHS every night at bedtime Take 1 capsule by mouth once daily at bedtime 08/19/19 22 022 Inactive Lyrica 100 mg capsule RxNorm: 393016 Take 1 Capsule(s) Oral QHS every night at bedtime Take 1 capsule by mouth once daily at bedtime 08/16/19 22 022 Inactive Lyrica 50 mg capsule RxNorm: 600335 Take 1 Capsule(s) Oral QAM every morning Take 1 capsule by mouth once daily 08/16/19 22 022 Inactive Levemir FlexTouch U-100 Insulin 100 unit/mL (3 mL) subcutaneous pen RxNorm: 373166 Inject 86 Unit(s) Subcutaneous BID 08/05/19 22 022 Inactive d/c 83units BID Lyrica 100 mg capsule RxNorm: 651588 Take 1 Capsule(s) Oral QHS every night at bedtime Take 1 capsule by mouth once daily at bedtime 07/14/19 22 022 Inactive Lyrica 50 mg capsule RxNorm: 572794 Take 1 Capsule(s) Oral QAM every morning Take 1 capsule by mouth once daily 07/14/19 22 022 Inactive Levemir FlexTouch U-100 Insulin 100 unit/mL (3 mL) subcutaneous pen RxNorm: 919639 Inject 83 Unit(s) Subcutaneous BID 07/08/19 22 [...] 30 mg tablet,extended release 24 hr RxNorm: 663448 Take 1 Tablet(s) Oral QD 05/05/20 No Stop Date Active hydralazine 50 mg tablet RxNorm: 647901 Take 1 Tablet(s) Oral QID 05/05/20 21 022 Inactive venlafaxine ER 225 mg tablet,extended release 24 hr RxNorm: 563469 Take 1 Tablet(s) Oral QD 05/05/20 21 021 Inactive venlafaxine ER 225 mg tablet,extended release 24 hr RxNorm: 913708 Take 1 Tablet(s) Oral QD 05/05/20 21 022 Inactive hydralazine 50 mg tablet RxNorm: 787901 Take 1 Tablet(s) Oral QID 05/05/20 21 021 Inactive aspirin 81 mg tablet,delayed release RxNorm: 313955 Take 1 Tablet(s) Oral QD 03/31/20 21 022 Inactive Zetia 10 mg tablet RxNorm: 028820 Take 1 Tablet(s) Oral QD 03/31/20 21 022 Inactive Vitamin D2 1,250 mcg (50,000 unit) capsule RxNorm: 3725018 Take 1 Capsule(s) Oral QW once a week x 12 weeks 03/31/20 022 Inactive Vitamin D2 1,250 mcg (50,000 unit) capsule RxNorm: 6413664 Take 1 Capsule(s) Oral QW once a week 03/31/20 Inactive Zetia 10 mg tablet RxNorm: 891487 Take 1 Tablet(s) Oral QD 03/31/20 Inactive hydralazine 25 mg tablet RxNorm: 891633 Take 1 Tablet(s) Oral QID 03/31/20 021 Inactive hydralazine 25 mg tablet RxNorm: 733054 Take 1 Tablet(s) Oral QID 03/31/20 021 Inactive hydralazine 10 mg tablet RxNorm: 770062 Take 1 Tablet(s) Oral QID 03/03/20 021 Inactive cephalexin 500 mg tablet RxNorm: 790281 Take 1 Tablet(s) Oral QID 02/27/20 021 Inactive cephalexin 500 mg tablet RxNorm: 472773 Take 1 Tablet(s) Oral QID 02/27/20 021 Inactive lisinopril 40 mg tablet RxNorm: 322894 Take 1 Tablet(s) Oral QD 02/11/20 023 Inactive Eliquis 5 mg tablet RxNorm: 6221729 Take 1 Tablet(s) Oral BID 01/05/20 022 Inactive Eliquis 5 mg tablet RxNorm: 0765405 Take 2 Tablet(s) Oral QD 01/01/20 021 Inactive Lyrica 50 mg capsule RxNorm: 676530 Take 1 Capsule(s) Oral QAM every morning 12/24/19 21 021 Inactive Lyrica 100 mg capsule RxNorm: 126176 Take 1 Capsule(s) Oral QHS every night at bedtime 12/24/19 21 021 Inactive clotrimazole 1 % topical cream RxNorm: 116449 Apply to right foot and toes Topical BID 12/04/19 21 023 Inactive metoprolol succinate ER 200 mg tablet,extended release 24 hr RxNorm: 949076 Take 1 Tablet(s) Oral QD 12/04/19 21 023 Inactive ciprofloxacin 500 mg tablet RxNorm: 375980 Take 1 Tablet(s) Oral QD 11/30/19 21 021 Inactive DX ofloxacin otic drops Accu-Chek Guide test strips RxNorm: USE 1 TO CHECK GLUCOSE 4 TIMES DAILY AND NEEDED 11/15/19 21 023 Inactive Blood Glucose Test strips RxNorm: Use 1 Test Strip QID at PRN 11/05/19 21 023 Inactive E11.42 lisinopril 30 mg tablet RxNorm: 492221 Take 1 Tablet(s) Oral QD 10/30/19 021 Inactive lisinopril 20 mg tablet RxNorm: 991676 Take 1 Tablet(s) Oral QD 10/23/19 021 Inactive lisinopril 20 mg tablet RxNorm: 631197 Take 1 Tablet(s) Oral QD 10/23/19 021 Inactive lisinopril 10 mg tablet RxNorm: 932446 Take 1 Tablet(s) Oral QD 10/02/19 021 Inactive icosapent ethyl 1 gram capsule RxNorm: 2866594 Take 2 Capsule(s) (2 gm) Oral BID with meals 09/12/19 022 Inactive Okay to dispense one 2gm tab if you have that available. icosapent ethyl 1 gram capsule RxNorm: 3788978 Take 2 Capsule(s) Oral BID 09/12/19 021 Inactive Okay to dispense one 2gm tab if you have that available. amlodipine 10 mg tablet RxNorm: 109937 Take 1 Tablet(s) Oral QD 09/04/19 022 Inactive aspirin 81 mg tablet,delayed release RxNorm: 709365 Take 1 Tablet(s) Oral QD 09/04/19 21 021 Inactive Levemir FlexTouch U-100 Insulin 100 unit/mL (3 mL) subcutaneous pen RxNorm: 505350 Inject 150 Unit(s) Subcutaneous BID 09/04/19 21 022 Inactive venlafaxine ER 150 mg tablet,extended release 24 hr RxNorm: 057443 Take 1 Tablet(s) Oral QD 04 021 Inactive clotrimazole-betame thasone 1 %-0.05 % topical cream RxNorm: 381002 Apply to rash on red area on left abdomen/chest Topical BID 08/10/19 21 021 Inactive amlodipine 5 mg tablet RxNorm: 331861 Take 1 Tablet(s) Oral QD 07/31/19 21 Inactive cephalexin 500 mg tablet RxNorm: 760617 Take 1 Tablet(s) Oral BID BID - Twice Daily 07/31/19 021 Inactive Start 08/01/20 pantoprazole 40 mg tablet,delayed release RxNorm: 355828 Take 1 Tablet(s) Oral QAM every morning 07/08/19 022 Inactive senna 8.6 mg tablet RxNorm: 929661 Take 1 Tablet(s) Oral QD 07/08/19 022 Inactive pravastatin 80 mg tablet RxNorm: 805062 Take 1 Tablet(s) Oral QHS every night at bedtime 07/08/19 022 Inactive carbamazepine 200 mg tablet RxNorm: 988962 Take 1 Tablet(s) Oral BID 07/08/19 022 Inactive torsemide 20 mg tablet RxNorm: 937659 Take 1 Tablet(s) Oral QD 07/08/19 023 Inactive clopidogrel 75 mg tablet RxNorm: 120696 Take 1 Tablet(s) Oral QD 07/08/19 021 Inactive Blood Glucose Test strips RxNorm: Use 1 Test Strip QID at PRN 07/08/19 021 Inactive E11.42 Novolog Flexpen U-100 Insulin aspart 100 unit/mL (3 mL) subcutaneous RxNorm: 3516803 Administer per sliding scale Milliliter(s) Subcutaneous TID 151-200: 10 u; 201-250: 20 u; 251-300: 30 u; 301-350: 40 u; 351-400: 50 u. 07/08/19 21 022 Inactive lisinopril 5 mg tablet RxNorm: 889011 Take 1 Tablet(s) Oral QD 07/08/19 021 Inactive Novolog Flexpen U-100 Insulin aspart 100 unit/mL (3 mL) subcutaneous RxNorm: 6835969 Inject 85 Unit(s) Subcutaneous TID 07/08/19 022 Inactive clotrimazole 1 % topical cream RxNorm: 699497 Apply to bilateral groin areas Topical BID 07/08/19 022 Inactive metoprolol succinate ER 200 mg tablet,extended release 24 hr RxNorm: 878957 Take 1 Tablet(s) Oral QD 07/08/19 021 Inactive Vitamin D3 25 mcg (1,000 unit) tablet RxNorm: 073006 Take 1 Tablet(s) Oral QD 07/08/19 021 Inactive isosorbide dinitrate 30 mg tablet RxNorm: 300943 Take 1 Tablet(s) Oral QD 07/08/19 021 Inactive Levemir FlexTouch U-100 Insulin 100 unit/mL (3 mL) subcutaneous pen RxNorm: 325631 Inject 140 Unit(s) Subcutaneous BID 07/08/19 021 Inactive venlafaxine 75 mg tablet RxNorm: 926848 Take 1 Tablet(s) Oral QD 07/08/19 021 Inactive acetaminophen 500 mg tablet RxNorm: 648776 Take 1 Tablet(s) Oral TID as needed for headache 06/18/19 021 Inactive acetaminophen 500 mg tablet RxNorm: 677261 Take 1 Tablet(s) Oral TID as needed for headache 06/18/19 021 Inactive Lyrica 100 mg capsule RxNorm: 387096 Take 1 Capsule(s) Oral QHS every night at bedtime 06/11/19 021 Inactive Lyrica 50 mg capsule RxNorm: 698045 Take 1 Capsule(s) Oral QAM every morning 06/10/19 021 Inactive hydrocortisone 2.5 % topical cream RxNorm: 006851 Apply to bilateral groin creases Topical BID 05/15/20 20 021 Inactive clotrimazole 1 % topical cream RxNorm: 950718 Apply to bilateral groin areas Topical BID 05/15/20 20 01/12/2 021 Inactive Lyrica 50 mg capsule RxNorm: 926161 Take 1 Capsule(s) Oral QAM every morning 05/14/20 20 Inactive Lyrica 100 mg capsule RxNorm: 225788 Take 1 Capsule(s) Oral QHS every night [...] Inactive Nystop 100,000 unit/gram topical powder RxNorm: 142859 Apply to abd folds, under breasts and L side of groin Topical BID x 14 days, then BID PRN 04/08/20 20 021 Inactive dx: yeast dermatitis Lyrica 100 mg capsule RxNorm: 973554 Take 1 Capsule(s) Oral QHS every night at bedtime 03/13/20 20 Inactive Lyrica 50 mg capsule RxNorm: 084567 Take 1 Capsule(s) Oral QAM every morning 03/13/20 20 Inactive ketoconazole 2 % shampoo RxNorm: 717900 Apply Topical two times a week with showers 03/11/20 20 Inactive cholecalciferol (vitamin D3) 50 mcg (2,000 unit) tablet RxNorm: 704142 Take 1 Tablet(s) Oral QD 03/11/20 20 Inactive Zetia 10 mg tablet RxNorm: 933111 Take 1 Tablet(s) Oral QD 03/07/20 20 021 Inactive Zetia 10 mg tablet RxNorm: 198737 Take 1 Tablet(s) Oral QD 03/07/20 20 Inactive Lyrica 50 mg capsule RxNorm: 450396 Take 1 Capsule(s) Oral QAM every morning 02/15/20 20 Inactive Lyrica 100 mg capsule RxNorm: 431896 Take 1 Capsule(s) Oral QHS every night at bedtime 02/15/20 20 Inactive Lyrica 100 mg capsule RxNorm: 125446 Take 1 Capsule(s) Oral QHS every night at bedtime 02/15/20 20 Inactive Lyrica 50 mg capsule RxNorm: 238351 Take 1 Capsule(s) Oral QAM every morning 02/15/20 20 Inactive venlafaxine ER 75 mg capsule,extended release 24 hr RxNorm: 704762 Take 3 Capsule(s) Oral QD 06/12/19 22 Active polyethylene glycol 3350 17 gram/dose oral powder RxNorm: 102188 Take 17=1 capful Gram(s) Oral BID as needed mix with 4-8oz of liquid 06/12/19 22 Active loperamide 2 mg capsule RxNorm: 247653 Take 1 Capsule(s) Oral QID as needed 06/12/19 22 Active Levemir FlexTouch U-100 Insulin 100 unit/mL (3 mL) subcutaneous pen RxNorm: 906967 Inject 80 Unit(s) Subcutaneous BID 07/14/19 23 023 Inactive Novolog Flexpen U-100 Insulin aspart 100 unit/mL (3 mL) subcutaneous RxNorm: 9906995 Insert 30 Unit(s) Subcutaneous TID with meals [...] Encounter Performer Location Location Address Codes Date ([address]) Home or Residence Visit Est Pt - [...] due to type 2 diabetes mellitus[ICD10: E11.22] Tapan Shirley [facility] [place] [address] [address] [place] [address] CPT-4: 22761 07/14/2022 Plan of Care Planned Activity Notes Codes Status Date Referral: [facility] [place] WPtel: [address], [address] [id number] [place] Referral Records Received 09/21/2022 Patient Education: Patient M edication Summary Completed 07/14/2022 Patient Education: Influenza Vaccine Completed 07/14/2022 Appointment: Tapan Shirley WPtel: [address] [facility] [address] [id number]/U 02/10/2022 Referral: [facility] CARLO WPtel: [address] [facility] [address] [id number] [place] Referral Completed 05/28/2021 Referral: General Cardiology Referral Complet ed 01/03/2021 Referral: General Psychologist Referral Close d Instructions Comment Date Leonid is a?? Male being seen living at [facility]. Initial BPS visit 01/2020. PMHx including DMII, CAD w/ 5 stents, Depression, Seizure Disorder and CKD stage 3. He moved into [facility] in 12/2019 but after a hospitalization 05/2021 he moved to the [facility] to have closer nursing attention.??Sister Jyotsna involved in his care cell# [phone]??Guardian: Don (tapan met in person 09/01/21), now has Lexii (same group as don)Lab Schedule: * 10/06/2022 Diabetes BGs improving, continue to follow closely with hatch boss and continue humulin 85u TID (hold morning dose of humulin 07/15/22 due to surgery and patient to be NPO).?? Hypertension Some BPs on the higher end (180/80) but patient is asymptomatic. Should f/u with retail sales representative to further discuss. Continue amlodipine 10mg, carvedilol 25mg, and lisinopril 40mg.?? Candidiasis, intertrigo Patient needs assistance with washing and dry skin folds daily to prevent worsening yeast infection as well as preventing any skin breakdown. Order provided today for staff to assist. Continue with nystatin powder BID.?? Pre-op evaluation PATIENT IS CLEARED FOR LEFT EYE CATARACT SURGERY.?? . 07/14/2022
--- OUTSIDE RECORDS SUMMARY | 2022-11-09 23:37 | XMS_ITS | CCD ---
Author Name Unknown Organization Unknown Care Team Providers Care Neon Pumper Name Role Phone Tapan Shirley PA-C Primary Care Provider Unavailabl e Tapan Shirley PA-C Chronic Care Management Unavaila ble Summary Purpose DataExchange Insurance Providers Payer name Policy type / Coverage type Covered democrat ID Effective Begin Date Effective End Date [place] [id number] Unknown Unknown [place] B [id number] Unknown Unknown Family history Sister Brittany Suggs Diagnosis Age At Onset No Family Disease Entered N/A Runs in the family Diagnosis Age At Onset No Known Diseases N/A Sister Blanka Mcduffie Diagnosis Age At Onset No Family Disease Entered N/A Social History Social History Element Codes Description Effec tive Dates Marital status Unknown Single 10/07/2021 Living arrangements Unknown Residential 09/03/[address]: 0019558 Non-Smoker / No History of Smoking 09/02/[address]: 858977421 No Alcohol Consum ption 09/02/2020 Allergies, Adverse Reactions, Alerts Substance Reaction Codes Entered Date Inactivated Date Status LISINOPRIL RxNorm: 25119 02/12/2020 No Inactive Da te Active Metformin [...] 05/01/2022 Active Coronary artery disease invo lving [place] coronary artery of [place] heart, angina presence unspecified ICD-10: I25.10 [...] immunization ICD-10: Z23 ICD-9: V03.89 02/10/2022 Resolved continuous churn buttermaker (current) use of insulin ICD-10: Z79.4 02/10 [...] Fill Instructions carvedilol 25 mg tablet RxNorm: 752780 1 Tablet(s) Oral QD 07/28/19 23 023 Inactive lisinopril 20 mg tablet RxNorm: 437460 Give 1 Tablet(s) Oral QD 07/28/19 23 023 Inactive Lyrica 150 mg capsule RxNorm: 417316 Take 1 Capsule(s) Oral QHS every night at bedtime 07/19/19 23 023 Inactive d/c 100mg dose Diflucan 150 mg tablet RxNorm: 095986 Take 1 Tablet(s) Oral QD repeat on day 3 and 6 07/19/19 23 023 Inactive pregabalin 100 mg capsule RxNorm: 258878 Take 1 Capsule(s) Oral QAM every morning 07/19/19 23 023 Inactive gatifloxacin 0.5 % eye drops RxNorm: 551826 Instill 1 Drop(s) as directed TID Instill 1 drop in to affected eye(s) starting 1 day prior to surgery and continue until gone (do not exceed 4 weeks). 07/13/19 23 023 Inactive Humulin R Regular U-100 Insulin 100 unit/mL injection solution RxNorm: 879836 85 Unit(s) Injection TID 07/13/19 23 023 Inactive ketorolac 0.5 % eye drops RxNorm: 906117 Instill 1 Drop(s) as directed QID Instill 1 drop into affected eye(s) 4 times daily starting 1 day prior to surgery and continue until gone (do not exceed 4 weeks). 07/13/19 23 023 Inactive carvedilol 25 mg tablet RxNorm: 824313 2 Tablet(s) Oral BID 07/13/19 023 Inactive Diflucan 150 mg tablet RxNorm: 184084 Take 1 Tablet(s) Oral QD repeat on day 3 and 6 06/30/19 023 Inactive Accu-Chek Guide test strips RxNorm: Use 1 Test Strip QID Use 1 test strip to monitor blood glucose 4 times daily and as needed. Dx:E11.42. 06/23/19 23 023 Inactive ok to substitute with any covered alternative test strip dextromethorphan-gu aifenesin 10 mg-100 mg/5 mL oral liquid RxNorm: 144637 Take 10 Milliliter(s) Oral every 4 hours as needed for cough 06/19/19 23 023 Inactive dextromethorphan-gu aifenesin 10 mg-100 mg/5 mL oral liquid RxNorm: 903311 Take 10 Milliliter(s) Oral every 4 hours as needed for cough 06/19/19 23 023 Inactive Lyrica 150 mg capsule RxNorm: 766404 Take 1 Capsule(s) Oral QHS every night at bedtime 06/18/19 23 023 Inactive d/c 100mg dose aripiprazole 15 mg tablet RxNorm: 607162 1/2 TAB (7.5MG) ORALLY DAILY (DX:MAJOR DEPRESSIVE DISORDER) 06/05/19 23 023 Inactive pregabalin 100 mg capsule RxNorm: 505420 1 Capsule(s) Oral QAM every morning 06/02/19 023 Inactive Banophen 50 mg capsule RxNorm: 9542521 Take 1 Capsule(s) Oral Q6H every 6 hours as needed 05/19/19 No Stop Date Active Novolog Flexpen U-100 Insulin aspart 100 unit/mL (3 mL) subcutaneous RxNorm: 9676858 Inject 10 Unit(s) Subcutaneous QHS every night at bedtime with nighttime snack 04/08/20 Inactive Novolog Flexpen U-100 Insulin aspart 100 unit/mL (3 mL) subcutaneous RxNorm: 8621826 Inject 42 Unit(s) Subcutaneous TID in addition to sliding scale 04/08/20 Inactive d/c 36u albuterol sulfate HFA 90 mcg/actuation aerosol inhaler RxNorm: 0850527 Take 2 Puff(s) Inhalation Q4H every four hours as needed as needed for SOB, cough, or wheezing 04/07/20 030 Active Banophen 50 mg capsule RxNorm: 6315701 Take 1 Capsule(s) Oral Q6H every 6 hours as needed 04/06/20 023 Inactive diphenhydramine 50 mg tablet RxNorm: 6924444 Take 1 Tablet(s) Oral Q6H every 6 hours as needed 04/06/20 022 Inactive diphenhydramine 50 mg tablet RxNorm: 2425811 1 Tablet(s) Oral Q6H every 6 hours as needed 04/06/20 022 Inactive Abilify 15 mg tablet RxNorm: 877211 1/2 Tablet(s) Oral QD 03/10/20 023 Inactive Shingrix (PF) 50 mcg/0.5 mL intramuscular suspension, kit RxNorm: 5491853 Administer 1/2 Milliliter(s) Intramuscular QD one time shingrix step 2 ( step 1 given 11/04/21) WITH needle - Nursing please administer upon arrival and once administered post a bridge message with date of administration, construction director, expiration date, and lot# so we can update [facility]IC 02/18/20 22 022 Inactive dispense with needle Shingrix (PF) 50 mcg/0.5 mL intramuscular suspension, kit RxNorm: 3412847 Administer 1/2 Milliliter(s) Intramuscular QD one time shingrix step 2 ( step 1 given 11/04/21) WITH needle - Nursing please administer upon arrival and once administered post a bridge message with date of administration, construction director, expiration date, and lot# so we can update [facility]IC 02/18/20 22 022 Inactive dispense with needle acetaminophen 500 mg tablet RxNorm: 231185 Take 1 Tablet(s) Oral TID 01/08/20 22 023 Active d/c PRN order polyethylene glycol 3350 17 gram/dose oral powder RxNorm: 682610 Take 17=1 capful Gram(s) Oral QD mix with 4-8oz of liquid 01/08/20 22 023 Active take this in addition to BID prn order Lyrica 100 mg capsule RxNorm: 005722 Take 1 Capsule(s) Oral QAM every morning 01/08/20 22 022 Inactive d/c 50mg dose Lyrica 150 mg capsule RxNorm: 566582 Take 1 Capsule(s) Oral QHS every night at bedtime 01/08/20 22 023 Inactive d/c 100mg dose Abilify 5 mg tablet RxNorm: 257427 Take 1 Tablet(s) Oral QD take 1 tab po QD #30 refill 5 dx: MDD 12/12/19 22 022 Inactive Abilify 5 mg tablet RxNorm: 930376 Take 1 Tablet(s) Oral QD take 1 tab po QD #30 refill 5 dx: MDD 12/12/19 22 022 Inactive chlorthalidone 25 mg tablet RxNorm: 726460 Take 1 Tablet(s) Oral QAM every morning 12/10/19 22 023 Active Novolog Flexpen U-100 Insulin aspart 100 unit/mL (3 mL) subcutaneous RxNorm: 2424965 Inject 42 Unit(s) Subcutaneous TID in addition to sliding scale 12/10/19 22 022 Inactive d/c 36u pregabalin 50 mg capsule RxNorm: 271629 Take 1 Capsule(s) Oral QAM every morning 11/12/19 22 022 Inactive tetanus-diphtheria toxoids-Td 2 Lf unit-2 Lf unit/0.5 mL IM suspension RxNorm: 139 Take 0.5 Miscellaneous Intramuscular 11/12/19 22 022 Inactive need tdap - nursing to administer upon arrival pregabalin 50 mg capsule RxNorm: 347259 Take 1 Capsule(s) Oral QAM every morning 10/16/19 22 022 Inactive pregabalin 50 mg capsule RxNorm: 698725 Take 1 Capsule(s) Oral QAM every morning 10/16/19 22 022 Inactive pregabalin 50 mg capsule RxNorm: 495755 1 Capsule(s) Oral QAM every morning 10/15/19 22 022 Inactive Shingrix (PF) 50 mcg/0.5 mL intramuscular suspension, kit RxNorm: 9696354 Administer 1/2 Milliliter(s) Intramuscular one time Nursing please administer upon arrival and once administered post a bridge message with date of administration, construction director, 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 10/09/19 22 022 Inactive shingrix step 1 Shingrix (PF) 50 mcg/0.5 mL intramuscular suspension, kit RxNorm: 3059932 Administer 1/2 Milliliter(s) Intramuscular one time Nursing please administer upon arrival and once administered post a bridge message with date of administration, construction director, 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 10/09/19 22 022 Inactive shingrix step 1 cholecalciferol (vitamin D3) 1,250 mcg (50,000 unit) capsule RxNorm: 137465 Take 1 Capsule(s) Oral QW once a [...] aspart 100 unit/mL (3 mL) subcutaneous RxNorm: 7099505 Inject 10 Unit(s) Subcutaneous QHS every night at bedtime with nighttime snack 10/08/19 22 Inactive Shingrix (PF) 50 mcg/0.5 mL intramuscular suspension, kit RxNorm: 3388205 ADMINISTER 2-DOSE SERIES PER CDC GUIDELINES 10/08/19 22 Active Shingrix (PF) 50 mcg/0.5 mL intramuscular suspension, kit RxNorm: 5697873 ADMINISTER 2-DOSE SERIES PER CDC GUIDELINES 10/08/19 22 Inactive Novolog Flexpen U-100 Insulin aspart 100 unit/mL (3 mL) subcutaneous RxNorm: 3518528 Inject 36 Unit(s) Subcutaneous TID in addition to sliding scale 10/08/19 Inactive Novofine Autocover 30 gauge x 1/3 needle RxNorm: Use 1 Miscellaneous UD as directed Use 1 needle as directed to administer insulin 5 times a day Dx:E11.42. 10/03/19 Inactive ok to substitute with any covered alternative pen needle benzoyl peroxide 10 % topical cleanser RxNorm: 681196 Apply 1 Application Topical QD apply to face, wash rinse and dry once daily (may change to QOD if drying) 08/19/19 22 022 Inactive (%covered by insurance) #60ml refill 11 dx: acne benzoyl peroxide 10 % topical cleanser RxNorm: 973987 Apply 1 Application Topical QD apply to face, wash rinse and dry once daily (may change to QOD if drying) 08/19/19 22 022 Inactive (%covered by insurance) #60ml refill 11 dx: acne benzoyl peroxide 10 % topical cleanser RxNorm: 773854 Apply 1 Application Topical QD apply to face, wash rinse and dry once daily (may change to QOD if drying) 08/19/19 22 022 Inactive (%covered by insurance) #60ml refill 11 dx: acne Lyrica 50 mg capsule RxNorm: 110692 Take 1 Capsule(s) Oral QAM every morning Take 1 capsule by mouth once daily 08/19/19 22 022 Inactive benzoyl peroxide 10 % topical cleanser RxNorm: 830591 Apply 1 Application Topical QD apply to face, wash rinse and dry once daily (may change to QOD if drying) 08/19/19 22 Inactive (%covered by insurance) #60ml refill 11 dx: acne Lyrica 100 mg capsule RxNorm: 976020 Take 1 Capsule(s) Oral QHS every night at bedtime Take 1 capsule by mouth once daily at bedtime 08/19/19 22 022 Inactive Lyrica 100 mg capsule RxNorm: 819262 Take 1 Capsule(s) Oral QHS every night at bedtime Take 1 capsule by mouth once daily at bedtime 08/16/19 22 022 Inactive Lyrica 50 mg capsule RxNorm: 588404 Take 1 Capsule(s) Oral QAM every morning Take 1 capsule by mouth once daily 08/16/19 22 022 Inactive Levemir FlexTouch U-100 Insulin 100 unit/mL (3 mL) subcutaneous pen RxNorm: 615249 Inject 86 Unit(s) Subcutaneous BID 08/05/19 22 022 Inactive d/c 83units BID Lyrica 100 mg capsule RxNorm: 517461 Take 1 Capsule(s) Oral QHS every night at bedtime Take 1 capsule by mouth once daily at bedtime 07/14/19 22 022 Inactive Lyrica 50 mg capsule RxNorm: 334360 Take 1 Capsule(s) Oral QAM every morning Take 1 capsule by mouth once daily 07/14/19 22 022 Inactive Levemir FlexTouch U-100 Insulin 100 unit/mL (3 mL) subcutaneous pen RxNorm: 759844 Inject 83 Unit(s) Subcutaneous BID 07/08/19 22 [...] 30 mg tablet,extended release 24 hr RxNorm: 491545 Take 1 Tablet(s) Oral QD 05/05/20 No Stop Date Active hydralazine 50 mg tablet RxNorm: 703918 Take 1 Tablet(s) Oral QID 05/05/20 21 022 Inactive venlafaxine ER 225 mg tablet,extended release 24 hr RxNorm: 359224 Take 1 Tablet(s) Oral QD 05/05/20 021 Inactive venlafaxine ER 225 mg tablet,extended release 24 hr RxNorm: 918941 Take 1 Tablet(s) Oral QD 05/05/20 21 022 Inactive hydralazine 50 mg tablet RxNorm: 693860 Take 1 Tablet(s) Oral QID 05/05/20 21 Inactive aspirin 81 mg tablet,delayed release RxNorm: 163297 Take 1 Tablet(s) Oral QD 03/31/20 Inactive Zetia 10 mg tablet RxNorm: 680822 Take 1 Tablet(s) Oral QD 03/31/20 Inactive Vitamin D2 1,250 mcg (50,000 unit) capsule RxNorm: 7553958 Take 1 Capsule(s) Oral QW once a week x 12 weeks 03/31/20 Inactive Vitamin D2 1,250 mcg (50,000 unit) capsule RxNorm: 9398837 Take 1 Capsule(s) Oral QW once a week 03/31/20 Inactive Zetia 10 mg tablet RxNorm: 723276 Take 1 Tablet(s) Oral QD 03/31/20 Inactive hydralazine 25 mg tablet RxNorm: 194446 Take 1 Tablet(s) Oral QID 03/31/20 21 021 Inactive hydralazine 25 mg tablet RxNorm: 224462 Take 1 Tablet(s) Oral QID 03/31/20 021 Inactive hydralazine 10 mg tablet RxNorm: 063557 Take 1 Tablet(s) Oral QID 03/03/20 021 Inactive cephalexin 500 mg tablet RxNorm: 906627 Take 1 Tablet(s) Oral QID 02/27/20 021 Inactive cephalexin 500 mg tablet RxNorm: 739645 Take 1 Tablet(s) Oral QID 02/27/20 021 Inactive lisinopril 40 mg tablet RxNorm: 897680 Take 1 Tablet(s) Oral QD 02/11/20 023 Inactive Eliquis 5 mg tablet RxNorm: 1253686 Take 1 Tablet(s) Oral BID 01/05/20 21 022 Inactive Eliquis 5 mg tablet RxNorm: 5872113 Take 2 Tablet(s) Oral QD 01/01/20 21 021 Inactive Lyrica 50 mg capsule RxNorm: 367751 Take 1 Capsule(s) Oral QAM every morning 12/24/19 21 021 Inactive Lyrica 100 mg capsule RxNorm: 708378 Take 1 Capsule(s) Oral QHS every night at bedtime 12/24/19 21 021 Inactive clotrimazole 1 % topical cream RxNorm: 493096 Apply to right foot and toes Topical BID 12/04/19 21 023 Inactive metoprolol succinate ER 200 mg tablet,extended release 24 hr RxNorm: 077694 Take 1 Tablet(s) Oral QD 12/04/19 023 Inactive ciprofloxacin 500 mg tablet RxNorm: 910608 Take 1 Tablet(s) Oral QD 11/30/19 21 021 Inactive DX ofloxacin otic drops Accu-Chek Guide test strips RxNorm: USE 1 TO CHECK GLUCOSE 4 TIMES DAILY AND NEEDED 11/15/19 21 023 Inactive Blood Glucose Test strips RxNorm: Use 1 Test Strip QID at PRN 11/05/19 21 023 Inactive E11.42 lisinopril 30 mg tablet RxNorm: 002923 Take 1 Tablet(s) Oral QD 10/30/19 021 Inactive lisinopril 20 mg tablet RxNorm: 517650 Take 1 Tablet(s) Oral QD 10/23/19 21 021 Inactive lisinopril 20 mg tablet RxNorm: 680858 Take 1 Tablet(s) Oral QD 10/23/19 21 021 Inactive lisinopril 10 mg tablet RxNorm: 920569 Take 1 Tablet(s) Oral QD 10/02/19 21 021 Inactive icosapent ethyl 1 gram capsule RxNorm: 2130510 Take 2 Capsule(s) (2 gm) Oral BID with meals 09/12/19 022 Inactive Okay to dispense one 2gm tab if you have that available. icosapent ethyl 1 gram capsule RxNorm: 2544488 Take 2 Capsule(s) Oral BID 09/12/19 21 021 Inactive Okay to dispense one 2gm tab if you have that available. amlodipine 10 mg tablet RxNorm: 573157 Take 1 Tablet(s) Oral QD 09/04/19 022 Inactive aspirin 81 mg tablet,delayed release RxNorm: 446888 Take 1 Tablet(s) Oral QD 09/04/19 021 Inactive Levemir FlexTouch U-100 Insulin 100 unit/mL (3 mL) subcutaneous pen RxNorm: 939716 Inject 150 Unit(s) Subcutaneous BID 09/04/19 022 Inactive venlafaxine ER 150 mg tablet,extended release 24 hr RxNorm: 426112 Take 1 Tablet(s) Oral QD 09/04/19 021 Inactive clotrimazole-betame thasone 1 %-0.05 % topical cream RxNorm: 652921 Apply to rash on red area on left abdomen/chest Topical BID 08/10/19 021 Inactive amlodipine 5 mg tablet RxNorm: 918361 Take 1 Tablet(s) Oral QD 07/31/19 Inactive cephalexin 500 mg tablet RxNorm: 730236 Take 1 Tablet(s) Oral BID BID - Twice Daily 07/31/19 021 Inactive Start 08/01/20 pantoprazole 40 mg tablet,delayed release RxNorm: 283444 Take 1 Tablet(s) Oral QAM every morning 07/08/19 022 Inactive senna 8.6 mg tablet RxNorm: 816422 Take 1 Tablet(s) Oral QD 07/08/19 022 Inactive pravastatin 80 mg tablet RxNorm: 813482 Take 1 Tablet(s) Oral QHS every night at bedtime 07/08/19 022 Inactive carbamazepine 200 mg tablet RxNorm: 334874 Take 1 Tablet(s) Oral BID 07/08/19 022 Inactive torsemide 20 mg tablet RxNorm: 994904 Take 1 Tablet(s) Oral QD 07/08/19 023 Inactive clopidogrel 75 mg tablet RxNorm: 981645 Take 1 Tablet(s) Oral QD 07/08/19 021 Inactive Blood Glucose Test strips RxNorm: Use 1 Test Strip QID at PRN 02/22/20 21 021 Inactive E11.42 Novolog Flexpen U-100 Insulin aspart 100 unit/mL (3 mL) subcutaneous RxNorm: 7161635 Administer per sliding scale Milliliter(s) Subcutaneous TID 151-200: 10 u; 201-250: 20 u; 251-300: 30 u; 301-350: 40 u; 351-400: 50 u. 07/08/19 21 022 Inactive lisinopril 5 mg tablet RxNorm: 815139 Take 1 Tablet(s) Oral QD 07/08/19 21 021 Inactive Novolog Flexpen U-100 Insulin aspart 100 unit/mL (3 mL) subcutaneous RxNorm: 7497295 Inject 85 Unit(s) Subcutaneous TID 07/08/19 022 Inactive clotrimazole 1 % topical cream RxNorm: 658341 Apply to bilateral groin areas Topical BID 07/08/19 Inactive metoprolol succinate ER 200 mg tablet,extended release 24 hr RxNorm: 795798 Take 1 Tablet(s) Oral QD 07/08/19 21 021 Inactive Vitamin D3 25 mcg (1,000 unit) tablet RxNorm: 175473 Take 1 Tablet(s) Oral QD 07/08/19 021 Inactive isosorbide dinitrate 30 mg tablet RxNorm: 864881 Take 1 Tablet(s) Oral QD 07/08/19 021 Inactive Levemir FlexTouch U-100 Insulin 100 unit/mL (3 mL) subcutaneous pen RxNorm: 658159 Inject 140 Unit(s) Subcutaneous BID 07/08/19 021 Inactive venlafaxine 75 mg tablet RxNorm: 739432 Take 1 Tablet(s) Oral QD 07/08/19 021 Inactive acetaminophen 500 mg tablet RxNorm: 616296 Take 1 Tablet(s) Oral TID as needed for headache 06/18/19 21 021 Inactive acetaminophen 500 mg tablet RxNorm: 531674 Take 1 Tablet(s) Oral TID as needed for headache 06/18/19 21 021 Inactive Lyrica 100 mg capsule RxNorm: 603519 Take 1 Capsule(s) Oral QHS every night at bedtime 06/11/19 21 021 Inactive Lyrica 50 mg capsule RxNorm: 767032 Take 1 Capsule(s) Oral QAM every morning 06/10/19 21 021 Inactive hydrocortisone 2.5 % topical cream RxNorm: 145232 Apply to bilateral groin creases Topical BID 05/15/20 20 021 Inactive clotrimazole 1 % topical cream RxNorm: 336510 Apply to bilateral groin areas Topical BID 05/15/20 20 021 Inactive Lyrica 50 mg capsule RxNorm: 094931 Take 1 Capsule(s) Oral QAM every morning 05/14/20 20 020 Inactive Lyrica 100 mg capsule RxNorm: 893850 Take 1 Capsule(s) Oral QHS every night [...] Inactive Nystop 100,000 unit/gram topical powder RxNorm: 015181 Apply to abd folds, under breasts and L side of groin Topical BID x 14 days, then BID PRN 04/08/20 20 021 Inactive dx: yeast dermatitis Lyrica 100 mg capsule RxNorm: 831745 Take 1 Capsule(s) Oral QHS every night at bedtime 03/13/20 20 10/28/2 020 Inactive Lyrica 50 mg capsule RxNorm: 297726 Take 1 Capsule(s) Oral QAM every morning 03/13/20 20 Inactive ketoconazole 2 % shampoo RxNorm: 559362 Apply Topical two times a week with showers 03/11/20 Inactive cholecalciferol (vitamin D3) 50 mcg (2,000 unit) tablet RxNorm: 533507 Take 1 Tablet(s) Oral QD 03/11/20 Inactive Zetia 10 mg tablet RxNorm: 370416 Take 1 Tablet(s) Oral QD 03/07/20 20 Inactive Zetia 10 mg tablet RxNorm: 978730 Take 1 Tablet(s) Oral QD 03/07/20 Inactive Lyrica 50 mg capsule RxNorm: 670941 Take 1 Capsule(s) Oral QAM every morning 02/15/20 20 Inactive Lyrica 100 mg capsule RxNorm: 925011 Take 1 Capsule(s) Oral QHS every night at bedtime 02/15/20 Inactive Lyrica 100 mg capsule RxNorm: 680606 Take 1 Capsule(s) Oral QHS every night at bedtime 02/15/20 Inactive Lyrica 50 mg capsule RxNorm: 314457 Take 1 Capsule(s) Oral QAM every morning 02/15/20 20 Inactive venlafaxine ER 75 mg capsule,extended release 24 hr RxNorm: 721658 Take 3 Capsule(s) Oral QD 06/12/19 Active polyethylene glycol 3350 17 gram/dose oral powder RxNorm: 425993 Take 17=1 capful Gram(s) Oral BID as needed mix with 4-8oz of liquid 06/12/19 Active loperamide 2 mg capsule RxNorm: 378427 Take 1 Capsule(s) Oral QID as needed 06/12/19 Active Levemir FlexTouch U-100 Insulin 100 unit/mL (3 mL) subcutaneous pen RxNorm: 532312 Inject 80 Unit(s) Subcutaneous BID 02/28/20 23 02/26/2 023 Inactive Novolog Flexpen U-100 Insulin aspart 100 unit/mL (3 mL) subcutaneous RxNorm: 7695085 Insert 30 Unit(s) Subcutaneous TID with meals [...] [facility] WPtel: [address], [address] [id number] Referral Records Received 09/21/2022 Referral: [facility] WPtel: [address] [id number] [place] Referral Completed 05/28/2021 Referral: General Cardiology Referral Complet ed 01/03/2021 Referral: General Psychologist Referral Close d Instructions Comment Date Leonid is a?? Male being seen living at [facility]. Initial BPS visit 01/2020. PMHx including DMII, CAD w/ 5 stents, Depression, Seizure Disorder and CKD stage 3. He moved into [facility] in 12/2019 but after a hospitalization 05/2021 he moved to [facility] to have closer nursing attention.??Sister Jyotsna involved in his care cell# [phone]??Guardian: Don (tapan met in person 09/01/21), now has Lexii (same group as don)Lab Schedule: * 10/06/2022
--- OUTSIDE RECORDS SUMMARY | 2022-11-09 23:38 | XMS_ITS | CCD ---
Author Name Unknown Organization Unknown Care Team Providers Care Flooring Professional Name Role Phone Tapan Shirley PA-C Primary Care Provider Unavailabl e Tapan Shirley PA-C Chronic Care Management Unavaila ble Summary Purpose DataExchange Insurance Providers Payer name Policy type / Coverage type Covered republican ID Effective Begin Date Effective End Date [place] [id number] Unknown Unknown [place] [id number] Unknown Unknown Family history Sister Brittany Suggs [...] [facility] 09/03/[address]: 0525454 Non-Smoker / No History of Smoking 09/02/[address]: 034066718 No Alcohol Consum ption 09/02/2020 Allergies, Adverse Reactions, Alerts Substance Reaction Codes Entered Date Inactivated Date Status LISINOPRIL RxNorm: 08274 02/12/2020 No Inactive Da te Active Metformin HCl Unknown 02/12/2020 No Inactive Cristiano e Active Problems Condition Codes Effective Dates Condition St atus Amputated toe of right foot ICD-10: S98. 131A ICD-9: 895.0 08/11/2022 Active Coronary artery disease invo lving [place] coronary artery of [place] heart, angina presence unspecified ICD-10: I25.10 ICD-9: 414.01 08/11/2022 Active Hyperlipidemia associated wi th type 2 diabetes mellitus ICD-10: E11.69 ICD-9: 250.80 08/11/2022 Active Onychogryposis ICD-10: L60.2 ICD-9: 703.8 08/11/2022 Active Pre-op evaluation ICD-10: Z01.818 ICD-9: V72.84 08/11/2022 Active Secondary hypertension ICD-10: I15.9 ICD-9: 405.99 08/11/2022 Active Stage 2 chronic kidney disea se due to type 2 diabetes mellitus ICD-10: E11.22 ICD-9: 250.40 08/11/2022 Active Type 2 diabetes mellitus wit h diabetic polyneuropathy, with long-term current use of insulin ICD-10: E11.42 ICD-9: 250.60 08/11/2022 Active Candidiasis, intertrigo ICD-10: B37.2 ICD-9: 112.3 07/14/2022 Active Hypertensive heart disease w ithout heart failure ICD-10: I11.9 ICD-9: 402.90 07/14/2022 Active High risk medication use ICD-10: [...] ICD-10: Z23 ICD-9: V03.89 02/10/2022 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 ICD-10: Z79.4 [...] edema ICD-10: R60.0 ICD-9: 782.3 10/07/2021 Active Learning disability ICD-10: F81.9 ICD-9: 315.2 [...] Fill Instructions pregabalin 150 mg capsule RxNorm: 930200 1 Capsule(s) Oral HS at bed time 08/18/19 23 023 Active pregabalin 100 mg capsule RxNorm: 264118 1 Capsule(s) Oral QAM every morning 08/18/19 23 023 Active carvedilol 25 mg tablet RxNorm: 872303 1 Tablet(s) Oral QD 07/28/19 23 023 Inactive lisinopril 20 mg tablet RxNorm: 472406 Give 1 Tablet(s) Oral QD 07/28/19 23 023 Inactive Lyrica 150 mg capsule RxNorm: 601817 Take 1 Capsule(s) Oral QHS every night at bedtime 07/19/19 23 023 Inactive d/c 100mg dose Diflucan 150 mg tablet RxNorm: 747153 Take 1 Tablet(s) Oral QD repeat on day 3 and 6 07/19/19 23 023 Inactive pregabalin 100 mg capsule RxNorm: 812633 Take 1 Capsule(s) Oral QAM every morning 07/19/19 23 023 Inactive Humulin R Regular U-100 Insulin 100 unit/mL injection solution RxNorm: 837002 85 Unit(s) Injection TID 07/13/19 23 023 Inactive gatifloxacin 0.5 % eye drops RxNorm: 962005 Instill 1 Drop(s) as directed TID Instill 1 drop in to affected eye(s) starting 1 day prior to surgery and continue until gone (do not exceed 4 weeks). 07/13/19 23 023 Inactive carvedilol 25 mg tablet RxNorm: 142470 2 Tablet(s) Oral BID 07/13/19 23 023 Inactive ketorolac 0.5 % eye drops RxNorm: 821848 Instill 1 Drop(s) as directed QID Instill 1 drop into affected eye(s) 4 times daily starting 1 day prior to surgery and continue until gone (do not exceed 4 weeks). 07/13/19 23 023 Inactive Diflucan 150 mg tablet RxNorm: 291216 Take 1 Tablet(s) Oral QD repeat on day 3 and 6 06/30/19 23 023 Inactive Accu-Chek Guide test strips RxNorm: Use 1 Test Strip QID Use 1 test strip to monitor blood glucose 4 times daily and as needed. Dx:E11.42. 06/23/19 23 023 Inactive ok to substitute with any covered alternative test strip dextromethorphan-gu aifenesin 10 mg-100 mg/5 mL oral liquid RxNorm: 619953 Take 10 Milliliter(s) Oral every 4 hours as needed for cough 06/19/19 23 023 Inactive dextromethorphan-gu aifenesin 10 mg-100 mg/5 mL oral liquid RxNorm: 246748 Take 10 Milliliter(s) Oral every 4 hours as needed for cough 06/19/19 23 023 Inactive Lyrica 150 mg capsule RxNorm: 375839 Take 1 Capsule(s) Oral QHS every night at bedtime 06/18/19 023 Inactive d/c 100mg dose aripiprazole 15 mg tablet RxNorm: 242032 /2 TAB (7.5MG) ORALLY DAILY (DX:MAJOR DEPRESSIVE DISORDER) 06/05/19 023 Inactive pregabalin 100 mg capsule RxNorm: 575199 1 Capsule(s) Oral QAM every morning 06/02/19 023 Inactive Banophen 50 mg capsule RxNorm: 1291092 Take 1 Capsule(s) Oral Q6H every 6 hours as needed 05/19/19 No Stop Date Active Novolog Flexpen U-100 Insulin aspart 100 unit/mL (3 mL) subcutaneous RxNorm: 8617450 Inject 10 Unit(s) Subcutaneous QHS every night at bedtime with nighttime snack 04/08/20 022 Inactive Novolog Flexpen U-100 Insulin aspart 100 unit/mL (3 mL) subcutaneous RxNorm: 3353533 Inject 42 Unit(s) Subcutaneous TID in addition to sliding scale 04/08/20 022 Inactive d/c 36u albuterol sulfate HFA 90 mcg/actuation aerosol inhaler RxNorm: 6168999 Take 2 Puff(s) Inhalation Q4H every four hours as needed as needed for SOB, cough, or wheezing 04/07/20 22 030 Active Banophen 50 mg capsule RxNorm: 0860534 Take 1 Capsule(s) Oral Q6H every 6 hours as needed 04/06/20 023 Inactive diphenhydramine 50 mg tablet RxNorm: 8961140 Take 1 Tablet(s) Oral Q6H every 6 hours as needed 04/06/20 22 022 Inactive diphenhydramine 50 mg tablet RxNorm: 5791450 1 Tablet(s) Oral Q6H every 6 hours as needed 04/06/20 22 022 Inactive Abilify 15 mg tablet RxNorm: 555360 /2 Tablet(s) Oral QD 03/10/20 22 023 Inactive Shingrix (PF) 50 mcg/0.5 mL intramuscular suspension, kit RxNorm: 5271526 Administer 1/2 Milliliter(s) Intramuscular QD one time shingrix step 2 ( step 1 given 11/04/21) WITH needle - Nursing please administer upon arrival and once administered post a bridge message with date of administration, printing and stamping supervisor, expiration date, and lot# so we can update [facility] 02/18/20 22 022 Inactive dispense with needle Shingrix (PF) 50 mcg/0.5 mL intramuscular suspension, kit RxNorm: 3569311 Administer 1/2 Milliliter(s) Intramuscular QD one time shingrix step 2 ( step 1 given 11/04/21) WITH needle - Nursing please administer upon arrival and once administered post a bridge message with date of administration, printing and stamping supervisor, expiration date, and lot# so we can update [facility] 02/18/20 22 022 Inactive dispense with needle acetaminophen 500 mg tablet RxNorm: 495378 Take 1 Tablet(s) Oral TID 01/08/20 22 023 Active d/c PRN order polyethylene glycol 3350 17 gram/dose oral powder RxNorm: 895673 Take 17=1 capful Gram(s) Oral QD mix with 4-8oz of liquid 01/08/20 22 023 Active take this in addition to BID prn order Lyrica 100 mg capsule RxNorm: 550036 Take 1 Capsule(s) Oral QAM every morning 01/08/20 22 022 Inactive d/c 50mg dose Lyrica 150 mg capsule RxNorm: 049878 Take 1 Capsule(s) Oral QHS every night at bedtime 01/08/20 22 023 Inactive d/c 100mg dose Abilify 5 mg tablet RxNorm: 265668 Take 1 Tablet(s) Oral QD take 1 tab po QD #30 refill 5 dx: MDD 12/12/19 22 022 Inactive Abilify 5 mg tablet RxNorm: 891440 Take 1 Tablet(s) Oral QD take 1 tab po QD #30 refill 5 dx: MDD 12/12/19 22 022 Inactive chlorthalidone 25 mg tablet RxNorm: 109881 Take 1 Tablet(s) Oral QAM every morning 12/10/19 22 023 Active Novolog Flexpen U-100 Insulin aspart 100 unit/mL (3 mL) subcutaneous RxNorm: 3434099 Inject 42 Unit(s) Subcutaneous TID in addition to sliding scale 12/10/19 22 022 Inactive d/c 36u pregabalin 50 mg capsule RxNorm: 853988 Take 1 Capsule(s) Oral QAM every morning 11/12/19 22 022 Inactive tetanus-diphtheria toxoids-Td 2 Lf unit-2 Lf unit/0.5 mL IM suspension RxNorm: 139 Take 0.5 Miscellaneous Intramuscular 11/12/19 22 022 Inactive need tdap - nursing to administer upon arrival pregabalin 50 mg capsule RxNorm: 486910 Take 1 Capsule(s) Oral QAM every morning 10/16/19 22 022 Inactive pregabalin 50 mg capsule RxNorm: 692834 Take 1 Capsule(s) Oral QAM every morning 10/16/19 22 022 Inactive pregabalin 50 mg capsule RxNorm: 161756 1 Capsule(s) Oral QAM every morning 10/15/19 22 022 Inactive Shingrix (PF) 50 mcg/0.5 mL intramuscular suspension, kit RxNorm: 3865066 Administer 1/2 Milliliter(s) Intramuscular one time Nursing please administer upon arrival and once administered post a bridge message with date of administration, printing and stamping 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 10/09/19 22 022 Inactive shingrix step 1 Shingrix (PF) 50 mcg/0.5 mL intramuscular suspension, kit RxNorm: 0039143 Administer 1/2 Milliliter(s) Intramuscular one time Nursing please administer upon arrival and once administered post a bridge message with date of administration, printing and stamping 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 10/09/19 22 022 Inactive shingrix step 1 cholecalciferol (vitamin D3) 1,250 mcg (50,000 unit) capsule RxNorm: 191109 Take 1 Capsule(s) Oral QW once a [...] aspart 100 unit/mL (3 mL) subcutaneous RxNorm: 6292394 Inject 10 Unit(s) Subcutaneous QHS every night at bedtime with nighttime snack 10/08/19 22 Inactive Shingrix (PF) 50 mcg/0.5 mL intramuscular suspension, kit RxNorm: 9602243 ADMINISTER 2-DOSE SERIES PER CDC GUIDELINES 10/08/19 22 Active Shingrix (PF) 50 mcg/0.5 mL intramuscular suspension, kit RxNorm: 9460165 ADMINISTER 2-DOSE SERIES PER CDC GUIDELINES 10/08/19 22 Inactive Novolog Flexpen U-100 Insulin aspart 100 unit/mL (3 mL) subcutaneous RxNorm: 9073357 Inject 36 Unit(s) Subcutaneous TID in addition to sliding scale 10/08/19 22 Inactive Novofine Autocover 30 gauge x 1/3 needle RxNorm: Use 1 Miscellaneous UD as directed Use 1 needle as directed to administer insulin 5 times a day Dx:E11.42. 10/03/19 Inactive ok to substitute with any covered alternative pen needle benzoyl peroxide 10 % topical cleanser RxNorm: 252017 Apply 1 Application Topical QD apply to face, wash rinse and dry once daily (may change to QOD if drying) 08/19/19 22 022 Inactive (%covered by insurance) #60ml refill 11 dx: acne benzoyl peroxide 10 % topical cleanser RxNorm: 686248 Apply 1 Application Topical QD apply to face, wash rinse and dry once daily (may change to QOD if drying) 08/19/19 22 022 Inactive (%covered by insurance) #60ml refill 11 dx: acne benzoyl peroxide 10 % topical cleanser RxNorm: 478396 Apply 1 Application Topical QD apply to face, wash rinse and dry once daily (may change to QOD if drying) 08/19/19 22 022 Inactive (%covered by insurance) #60ml refill 11 dx: acne Lyrica 50 mg capsule RxNorm: 782338 Take 1 Capsule(s) Oral QAM every morning Take 1 capsule by mouth once daily 08/19/19 22 022 Inactive benzoyl peroxide 10 % topical cleanser RxNorm: 880784 Apply 1 Application Topical QD apply to face, wash rinse and dry once daily (may change to QOD if drying) 08/19/19 22 022 Inactive (%covered by insurance) #60ml refill 11 dx: acne Lyrica 100 mg capsule RxNorm: 929266 Take 1 Capsule(s) Oral QHS every night at bedtime Take 1 capsule by mouth once daily at bedtime 08/19/19 22 022 Inactive Lyrica 100 mg capsule RxNorm: 057585 Take 1 Capsule(s) Oral QHS every night at bedtime Take 1 capsule by mouth once daily at bedtime 08/16/19 22 022 Inactive Lyrica 50 mg capsule RxNorm: 498962 Take 1 Capsule(s) Oral QAM every morning Take 1 capsule by mouth once daily 08/16/19 22 022 Inactive Levemir FlexTouch U-100 Insulin 100 unit/mL (3 mL) subcutaneous pen RxNorm: 477328 Inject 86 Unit(s) Subcutaneous BID 08/05/19 22 022 Inactive d/c 83units BID Lyrica 100 mg capsule RxNorm: 604772 Take 1 Capsule(s) Oral QHS every night at bedtime Take 1 capsule by mouth once daily at bedtime 07/14/19 22 022 Inactive Lyrica 50 mg capsule RxNorm: 994334 Take 1 Capsule(s) Oral QAM every morning Take 1 capsule by mouth once daily 07/14/19 22 022 Inactive Levemir FlexTouch U-100 Insulin 100 unit/mL (3 mL) subcutaneous pen RxNorm: 255012 Inject 83 Unit(s) Subcutaneous BID 07/08/19 22 [...] 30 mg tablet,extended release 24 hr RxNorm: 004794 Take 1 Tablet(s) Oral QD 05/05/20 No Stop Date Active hydralazine 50 mg tablet RxNorm: 591595 Take 1 Tablet(s) Oral QID 05/05/20 21 022 Inactive venlafaxine ER 225 mg tablet,extended release 24 hr RxNorm: 199780 Take 1 Tablet(s) Oral QD 05/05/20 021 Inactive venlafaxine ER 225 mg tablet,extended release 24 hr RxNorm: 387392 Take 1 Tablet(s) Oral QD 05/05/20 022 Inactive hydralazine 50 mg tablet RxNorm: 842360 Take 1 Tablet(s) Oral QID 05/05/20 21 021 Inactive aspirin 81 mg tablet,delayed release RxNorm: 836919 Take 1 Tablet(s) Oral QD 03/31/20 022 Inactive Zetia 10 mg tablet RxNorm: 582713 Take 1 Tablet(s) Oral QD 03/31/20 Inactive Vitamin D2 1,250 mcg (50,000 unit) capsule RxNorm: 0129709 Take 1 Capsule(s) Oral QW once a week x 12 weeks 03/31/20 022 Inactive Vitamin D2 1,250 mcg (50,000 unit) capsule RxNorm: 2751241 Take 1 Capsule(s) Oral QW once a week 03/31/20 Inactive Zetia 10 mg tablet RxNorm: 073820 Take 1 Tablet(s) Oral QD 03/31/20 Inactive hydralazine 25 mg tablet RxNorm: 940497 Take 1 Tablet(s) Oral QID 03/31/20 021 Inactive hydralazine 25 mg tablet RxNorm: 283570 Take 1 Tablet(s) Oral QID 03/31/20 021 Inactive hydralazine 10 mg tablet RxNorm: 772567 Take 1 Tablet(s) Oral QID 03/03/20 021 Inactive cephalexin 500 mg tablet RxNorm: 690238 Take 1 Tablet(s) Oral QID 02/27/20 021 Inactive cephalexin 500 mg tablet RxNorm: 958013 Take 1 Tablet(s) Oral QID 02/27/20 021 Inactive lisinopril 40 mg tablet RxNorm: 295854 Take 1 Tablet(s) Oral QD 02/11/20 21 023 Inactive Eliquis 5 mg tablet RxNorm: 1815086 Take 1 Tablet(s) Oral BID 01/05/20 21 022 Inactive Eliquis 5 mg tablet RxNorm: 8240972 Take 2 Tablet(s) Oral QD 01/01/20 021 Inactive Lyrica 50 mg capsule RxNorm: 711894 Take 1 Capsule(s) Oral QAM every morning 12/24/19 021 Inactive Lyrica 100 mg capsule RxNorm: 125394 Take 1 Capsule(s) Oral QHS every night at bedtime 12/24/19 021 Inactive clotrimazole 1 % topical cream RxNorm: 717913 Apply to right foot and toes Topical BID 12/04/19 21 023 Inactive metoprolol succinate ER 200 mg tablet,extended release 24 hr RxNorm: 858367 Take 1 Tablet(s) Oral QD 12/04/19 023 Inactive ciprofloxacin 500 mg tablet RxNorm: 317132 Take 1 Tablet(s) Oral QD 11/30/19 021 Inactive DX ofloxacin otic drops Accu-Chek Guide test strips RxNorm: USE 1 TO CHECK GLUCOSE 4 TIMES DAILY AND NEEDED 11/15/19 21 023 Inactive Blood Glucose Test strips RxNorm: Use 1 Test Strip QID at PRN 11/05/19 21 023 Inactive E11.42 lisinopril 30 mg tablet RxNorm: 888890 Take 1 Tablet(s) Oral QD 10/30/19 021 Inactive lisinopril 20 mg tablet RxNorm: 127760 Take 1 Tablet(s) Oral QD 10/23/19 021 Inactive lisinopril 20 mg tablet RxNorm: 148443 Take 1 Tablet(s) Oral QD 10/23/19 021 Inactive lisinopril 10 mg tablet RxNorm: 895596 Take 1 Tablet(s) Oral QD 10/02/19 21 021 Inactive icosapent ethyl 1 gram capsule RxNorm: 1945203 Take 2 Capsule(s) (2 gm) Oral BID with meals 09/12/19 21 022 Inactive Okay to dispense one 2gm tab if you have that available. icosapent ethyl 1 gram capsule RxNorm: 9354235 Take 2 Capsule(s) Oral BID 09/12/19 Inactive Okay to dispense one 2gm tab if you have that available. amlodipine 10 mg tablet RxNorm: 552399 Take 1 Tablet(s) Oral QD 09/04/19 Inactive aspirin 81 mg tablet,delayed release RxNorm: 770535 Take 1 Tablet(s) Oral QD 09/04/19 21 021 Inactive Levemir FlexTouch U-100 Insulin 100 unit/mL (3 mL) subcutaneous pen RxNorm: 418153 Inject 150 Unit(s) Subcutaneous BID 09/04/19 022 Inactive venlafaxine ER 150 mg tablet,extended release 24 hr RxNorm: 414981 Take 1 Tablet(s) Oral QD 09/04/19 Inactive clotrimazole-betame thasone 1 %-0.05 % topical cream RxNorm: 688358 Apply to rash on red area on left abdomen/chest Topical BID 08/10/19 21 Inactive amlodipine 5 mg tablet RxNorm: 090340 Take 1 Tablet(s) Oral QD 07/31/19 Inactive cephalexin 500 mg tablet RxNorm: 455557 Take 1 Tablet(s) Oral BID BID - Twice Daily 07/31/19 021 Inactive Start 08/01/20 pantoprazole 40 mg tablet,delayed release RxNorm: 923001 Take 1 Tablet(s) Oral QAM every morning 07/08/19 022 Inactive senna 8.6 mg tablet RxNorm: 056344 Take 1 Tablet(s) Oral QD 07/08/19 022 Inactive pravastatin 80 mg tablet RxNorm: 528194 Take 1 Tablet(s) Oral QHS every night at bedtime 07/08/19 022 Inactive carbamazepine 200 mg tablet RxNorm: 371712 Take 1 Tablet(s) Oral BID 07/08/19 022 Inactive torsemide 20 mg tablet RxNorm: 790819 Take 1 Tablet(s) Oral QD 07/08/19 21 023 Inactive clopidogrel 75 mg tablet RxNorm: 141353 Take 1 Tablet(s) Oral QD 07/08/19 021 Inactive Blood Glucose Test strips RxNorm: Use 1 Test Strip QID at PRN 07/08/19 21 Inactive E11.42 Novolog Flexpen U-100 Insulin aspart 100 unit/mL (3 mL) subcutaneous RxNorm: 5882457 Administer per sliding scale Milliliter(s) Subcutaneous TID 151-200: 10 u; 201-250: 20 u; 251-300: 30 u; 301-350: 40 u; 351-400: 50 u. 07/08/19 21 022 Inactive lisinopril 5 mg tablet RxNorm: 585207 Take 1 Tablet(s) Oral QD 07/08/19 021 Inactive Novolog Flexpen U-100 Insulin aspart 100 unit/mL (3 mL) subcutaneous RxNorm: 3566918 Inject 85 Unit(s) Subcutaneous TID 07/08/19 022 Inactive clotrimazole 1 % topical cream RxNorm: 341680 Apply to bilateral groin areas Topical BID 07/08/19 21 022 Inactive metoprolol succinate ER 200 mg tablet,extended release 24 hr RxNorm: 868909 Take 1 Tablet(s) Oral QD 07/08/19 021 Inactive Vitamin D3 25 mcg (1,000 unit) tablet RxNorm: 752397 Take 1 Tablet(s) Oral QD 07/08/19 021 Inactive isosorbide dinitrate 30 mg tablet RxNorm: 697910 Take 1 Tablet(s) Oral QD 07/08/19 21 021 Inactive Levemir FlexTouch U-100 Insulin 100 unit/mL (3 mL) subcutaneous pen RxNorm: 029324 Inject 140 Unit(s) Subcutaneous BID 07/08/19 21 021 Inactive venlafaxine 75 mg tablet RxNorm: 764169 Take 1 Tablet(s) Oral QD 07/08/19 21 021 Inactive acetaminophen 500 mg tablet RxNorm: 911976 Take 1 Tablet(s) Oral TID as needed for headache 06/18/19 21 021 Inactive acetaminophen 500 mg tablet RxNorm: 322263 Take 1 Tablet(s) Oral TID as needed for headache 06/18/19 21 021 Inactive Lyrica 100 mg capsule RxNorm: 308361 Take 1 Capsule(s) Oral QHS every night at bedtime 06/11/19 21 021 Inactive Lyrica 50 mg capsule RxNorm: 562130 Take 1 Capsule(s) Oral QAM every morning 06/10/19 21 021 Inactive hydrocortisone 2.5 % topical cream RxNorm: 263192 Apply to bilateral groin creases Topical BID 05/15/20 20 021 Inactive clotrimazole 1 % topical cream RxNorm: 568482 Apply to bilateral groin areas Topical BID 05/15/20 20 021 Inactive Lyrica 50 mg capsule RxNorm: 344577 Take 1 Capsule(s) Oral QAM every morning 05/14/20 20 020 Inactive Lyrica 100 mg capsule RxNorm: 151608 Take 1 Capsule(s) Oral QHS every night [...] Inactive Nystop 100,000 unit/gram topical powder RxNorm: 515789 Apply to abd folds, under breasts and L side of groin Topical BID x 14 days, then BID PRN 04/08/20 20 Inactive dx: yeast dermatitis Lyrica 100 mg capsule RxNorm: 019422 Take 1 Capsule(s) Oral QHS every night at bedtime 03/13/20 20 Inactive Lyrica 50 mg capsule RxNorm: 208578 Take 1 Capsule(s) Oral QAM every morning 03/13/20 20 Inactive ketoconazole 2 % shampoo RxNorm: 741783 Apply Topical two times a week with showers 03/11/20 20 Inactive cholecalciferol (vitamin D3) 50 mcg (2,000 unit) tablet RxNorm: 380936 Take 1 Tablet(s) Oral QD 03/11/20 20 Inactive Zetia 10 mg tablet RxNorm: 871400 Take 1 Tablet(s) Oral QD 03/07/20 Inactive Zetia 10 mg tablet RxNorm: 788348 Take 1 Tablet(s) Oral QD 03/07/20 20 Inactive Lyrica 50 mg capsule RxNorm: 148155 Take 1 Capsule(s) Oral QAM every morning 02/15/20 20 Inactive Lyrica 100 mg capsule RxNorm: 677876 Take 1 Capsule(s) Oral QHS every night at bedtime 02/15/20 20 Inactive Lyrica 100 mg capsule RxNorm: 739488 Take 1 Capsule(s) Oral QHS every night at bedtime 02/15/20 20 Inactive Lyrica 50 mg capsule RxNorm: 684462 Take 1 Capsule(s) Oral QAM every morning 02/15/20 20 Inactive venlafaxine ER 75 mg capsule,extended release 24 hr RxNorm: 302670 Take 3 Capsule(s) Oral QD 06/12/19 Active polyethylene glycol 3350 17 gram/dose oral powder RxNorm: 658146 Take 17=1 capful Gram(s) Oral BID as needed mix with 4-8oz of liquid 06/12/19 Active icosapent ethyl 1 gram capsule RxNorm: 2058006 Take 2 Capsule(s) (2 gm) Oral BID with meals 10/07/19 23 023 Inactive Okay to dispense one 2gm tab if you have that available. metoprolol succinate ER 200 mg tablet,extended release 24 hr RxNorm: 180123 Take 1 Tablet(s) Oral QD 08/12/19 Active loperamide 2 mg capsule RxNorm: 160511 Take 1 Capsule(s) Oral QID as needed 06/12/19 Active hydralazine 50 mg tablet RxNorm: 484728 Take 1 Tablet(s) Oral QID 08/12/19 23 Active Levemir FlexTouch U-100 Insulin 100 unit/mL (3 mL) subcutaneous pen RxNorm: 153046 Inject 80 Unit(s) Subcutaneous BID 07/14/19 23 023 Inactive Novolog Flexpen U-100 Insulin aspart 100 unit/mL (3 mL) subcutaneous RxNorm: 6374672 Insert 30 Unit(s) Subcutaneous TID with meals [...] Codes Status Date Referral: [facility] WPtel: [address], [address] [id number] [place] Referral Records Received 09/21/2022 Referral: [facility] WPtel: [address] [id number] [place] Referral Completed 05/28/2021 Referral: General Cardiology [...] attention.??Sister Jyotsna involved in his care cell# [phone]??Guardian: Don (tapan met in person 09/01/21), now has Lex[facility] (same group as don)Lab Schedule: * 10/06/2022
--- OUTSIDE RECORDS SUMMARY | 2022-11-09 23:38 | XMS_ITS | CCD ---
Author Name Tapan Shirley PA-C Address [address] [facility] [address] [place] [address] Phone Organization [facility] Phone Care Team Providers Care Licensed Staff Mft Name Role Phone Tapan Shirley PA-C Primary Care Provider Unavailabl e Tapan Shirley PA-C Chronic Care Management Unavaila ble Summary Purpose DataExchange Insurance Providers Payer name Policy type / Coverage type Covered constitution party ID Effective Begin Date Effective End Date [place] Medicare Part B [id number] Unknown Unknown Medicaid [place] Medicare Part B [id number] Unknown Unknown Family history Sister Brittany Suggs Diagnosis Age At Onset No Family Disease Entered N/A Runs in the family Diagnosis Age At Onset No Known Diseases N/A Sister Blanka Mcduffie Diagnosis Age At Onset No Family Disease Entered N/A Social History Social History Element Codes Description Effec tive Dates Marital status Unknown Single 10/07/2021 Living arrangements Unknown Assisted 09/03/[address]: 5622696 Non-Smoker / No History of Smoking 09/02/[address]: 163546719 No Alcohol Consum ption 09/02/2020 Allergies, Adverse Reactions, Alerts Substance Reaction Codes Entered Date Inactivated Date Status LISINOPRIL RxNorm: 02365 02/12/2020 No Inactive Da te Active Metformin HCl Unknown 02/12/2020 No Inactive Cristiano e Active Problems Condition Codes Effective Dates Condition St atus Amputated toe of right foot ICD-10: S98. 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 ICD-10: Z79.4 02/10 [...] Fill Instructions carvedilol 25 mg tablet RxNorm: 720651 1 Tablet(s) Oral QD 07/28/19 23 023 Inactive lisinopril 20 mg tablet RxNorm: 782628 Give 1 Tablet(s) Oral QD 07/28/19 23 023 Inactive Lyrica 150 mg capsule RxNorm: 092929 Take 1 Capsule(s) Oral QHS every night at bedtime 07/19/19 23 023 Inactive d/c 100mg dose Diflucan 150 mg tablet RxNorm: 146291 Take 1 Tablet(s) Oral QD repeat on day 3 and 6 07/19/19 23 023 Inactive pregabalin 100 mg capsule RxNorm: 106602 Take 1 Capsule(s) Oral QAM every morning 07/19/19 23 023 Inactive Humulin R Regular U-100 Insulin 100 unit/mL injection solution RxNorm: 080236 85 Unit(s) Injection TID 07/13/19 23 023 Inactive gatifloxacin 0.5 % eye drops RxNorm: 157795 Instill 1 Drop(s) as directed TID Instill 1 drop in to affected eye(s) starting 1 day prior to surgery and continue until gone (do not exceed 4 weeks). 07/13/19 23 023 Inactive carvedilol 25 mg tablet RxNorm: 850667 2 Tablet(s) Oral BID 07/13/19 023 Inactive ketorolac 0.5 % eye drops RxNorm: 916936 Instill 1 Drop(s) as directed QID Instill 1 drop into affected eye(s) 4 times daily starting 1 day prior to surgery and continue until gone (do not exceed 4 weeks). 07/13/19 023 Inactive Diflucan 150 mg tablet RxNorm: 996044 Take 1 Tablet(s) Oral QD repeat on day 3 and 6 06/30/19 023 Inactive Accu-Chek Guide test strips RxNorm: Use 1 Test Strip QID Use 1 test strip to monitor blood glucose 4 times daily and as needed. Dx:E11.42. 06/23/19 23 023 Inactive ok to substitute with any covered alternative test strip dextromethorphan-gu aifenesin 10 mg-100 mg/5 mL oral liquid RxNorm: 321228 Take 10 Milliliter(s) Oral every 4 hours as needed for cough 06/19/19 023 Inactive dextromethorphan-gu aifenesin 10 mg-100 mg/5 mL oral liquid RxNorm: 980751 Take 10 Milliliter(s) Oral every 4 hours as needed for cough 06/19/19 23 023 Inactive Lyrica 150 mg capsule RxNorm: 089757 Take 1 Capsule(s) Oral QHS every night at bedtime 06/18/19 23 023 Inactive d/c 100mg dose aripiprazole 15 mg tablet RxNorm: 759851 /2 TAB (7.5MG) ORALLY DAILY (DX:MAJOR DEPRESSIVE DISORDER) 06/05/19 023 Inactive pregabalin 100 mg capsule RxNorm: 722431 1 Capsule(s) Oral QAM every morning 06/02/19 023 Inactive Banophen 50 mg capsule RxNorm: 5803715 Take 1 Capsule(s) Oral Q6H every 6 hours as needed 05/19/19 No Stop Date Active Novolog Flexpen U-100 Insulin aspart 100 unit/mL (3 mL) subcutaneous RxNorm: 1102357 Inject 10 Unit(s) Subcutaneous QHS every night at bedtime with nighttime snack 04/08/20 022 Inactive Novolog Flexpen U-100 Insulin aspart 100 unit/mL (3 mL) subcutaneous RxNorm: 7125600 Inject 42 Unit(s) Subcutaneous TID in addition to sliding scale 04/08/20 022 Inactive d/c 36u albuterol sulfate HFA 90 mcg/actuation aerosol inhaler RxNorm: 6310799 Take 2 Puff(s) Inhalation Q4H every four hours as needed as needed for SOB, cough, or wheezing 04/07/20 030 Active Banophen 50 mg capsule RxNorm: 9888318 Take 1 Capsule(s) Oral Q6H every 6 hours as needed 04/06/20 023 Inactive diphenhydramine 50 mg tablet RxNorm: 3120493 Take 1 Tablet(s) Oral Q6H every 6 hours as needed 04/06/20 22 022 Inactive diphenhydramine 50 mg tablet RxNorm: 1453463 1 Tablet(s) Oral Q6H every 6 hours as needed 04/06/20 022 Inactive Abilify 15 mg tablet RxNorm: 552743 1/2 Tablet(s) Oral QD 03/10/20 023 Inactive Shingrix (PF) 50 mcg/0.5 mL intramuscular suspension, kit RxNorm: 3105963 Administer 1/2 Milliliter(s) Intramuscular QD one time shingrix step 2 ( step 1 given 11/04/21) WITH needle - Nursing please administer upon arrival and once administered post a bridge message 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, 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, expiration date, and lot# so we can update [facility] 02/18/20 22 022 Inactive dispense with needle Shingrix (PF) 50 mcg/0.5 mL intramuscular suspension, kit RxNorm: 5779375 Administer 1/2 Milliliter(s) Intramuscular QD one time shingrix step 2 ( step 1 given 11/04/21) WITH needle - Nursing please administer upon arrival and once administered post a bridge message with 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, 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, expiration 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, and lot# so we can update [facility] 02/18/20 22 022 Inactive dispense with needle acetaminophen 500 mg tablet RxNorm: 697266 Take 1 Tablet(s) Oral TID 01/08/20 22 023 Active d/c PRN order polyethylene glycol 3350 17 gram/dose oral powder RxNorm: 388244 Take 17=1 capful Gram(s) Oral QD mix with 4-8oz of liquid 01/08/20 22 023 Active take this in addition to BID prn order Lyrica 100 mg capsule RxNorm: 411656 Take 1 Capsule(s) Oral QAM every morning 01/08/20 22 022 Inactive d/c 50mg dose Lyrica 150 mg capsule RxNorm: 820357 Take 1 Capsule(s) Oral QHS every night at bedtime 01/08/20 22 023 Inactive d/c 100mg dose Abilify 5 mg tablet RxNorm: 863556 Take 1 Tablet(s) Oral QD take 1 tab po QD #30 refill 5 dx: MDD 12/12/19 22 022 Inactive Abilify 5 mg tablet RxNorm: 369083 Take 1 Tablet(s) Oral QD take 1 tab po QD #30 refill 5 dx: MDD 12/12/19 22 022 Inactive chlorthalidone 25 mg tablet RxNorm: 895544 Take 1 Tablet(s) Oral QAM every morning 12/10/19 22 023 Active Novolog Flexpen U-100 Insulin aspart 100 unit/mL (3 mL) subcutaneous RxNorm: 0117566 Inject 42 Unit(s) Subcutaneous TID in addition to sliding scale 12/10/19 22 022 Inactive d/c 36u pregabalin 50 mg capsule RxNorm: 185194 Take 1 Capsule(s) Oral QAM every morning 11/12/19 22 022 Inactive tetanus-diphtheria toxoids-Td 2 Lf unit-2 Lf unit/0.5 mL IM suspension RxNorm: 139 Take 0.5 Miscellaneous Intramuscular 11/12/19 22 022 Inactive need tdap - nursing to administer upon arrival pregabalin 50 mg capsule RxNorm: 355960 Take 1 Capsule(s) Oral QAM every morning 10/16/19 22 022 Inactive pregabalin 50 mg capsule RxNorm: 777456 Take 1 Capsule(s) Oral QAM every morning 10/16/19 22 022 Inactive pregabalin 50 mg capsule RxNorm: 619701 1 Capsule(s) Oral QAM every morning 10/15/19 22 022 Inactive Shingrix (PF) 50 mcg/0.5 mL intramuscular suspension, kit RxNorm: 3877872 Administer 1/2 Milliliter(s) Intramuscular one time Nursing please administer upon arrival and once administered post a bridge message with 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 10/09/19 22 022 Inactive shingrix step 1 cholecalciferol (vitamin D3) 1,250 mcg (50,000 unit) capsule RxNorm: 580254 Take 1 Capsule(s) Oral QW once a [...] aspart 100 unit/mL (3 mL) subcutaneous RxNorm: 5249665 Inject 10 Unit(s) Subcutaneous QHS every night at bedtime with nighttime snack 10/08/19 22 Inactive Shingrix (PF) 50 mcg/0.5 mL intramuscular suspension, kit RxNorm: 7530926 ADMINISTER 2-DOSE SERIES PER CDC GUIDELINES 10/08/19 22 Active Shingrix (PF) 50 mcg/0.5 mL intramuscular suspension, kit RxNorm: 4029300 ADMINISTER 2-DOSE SERIES PER CDC GUIDELINES 10/08/19 22 Inactive Novolog Flexpen U-100 Insulin aspart 100 unit/mL (3 mL) subcutaneous RxNorm: 4944459 Inject 36 Unit(s) Subcutaneous TID in addition to sliding scale 10/08/19 22 Inactive Novofine Autocover 30 gauge x 1/3 needle RxNorm: Use 1 Miscellaneous UD as directed Use 1 needle as directed to administer insulin 5 times a day Dx:E11.42. 10/03/19 22 Inactive ok to substitute with any covered alternative pen needle benzoyl peroxide 10 % topical cleanser RxNorm: 264693 Apply 1 Application Topical QD apply to face, wash rinse and dry once daily (may change to QOD if drying) 08/19/19 22 022 Inactive (%covered by insurance) #60ml refill 11 dx: acne benzoyl peroxide 10 % topical cleanser RxNorm: 121311 Apply 1 Application Topical QD apply to face, wash rinse and dry once daily (may change to QOD if drying) 08/19/19 22 022 Inactive (%covered by insurance) #60ml refill 11 dx: acne benzoyl peroxide 10 % topical cleanser RxNorm: 309386 Apply 1 Application Topical QD apply to face, wash rinse and dry once daily (may change to QOD if drying) 08/19/19 22 022 Inactive (%covered by insurance) #60ml refill 11 dx: acne Lyrica 50 mg capsule RxNorm: 880584 Take 1 Capsule(s) Oral QAM every morning Take 1 capsule by mouth once daily 08/19/19 22 022 Inactive benzoyl peroxide 10 % topical cleanser RxNorm: 598554 Apply 1 Application Topical QD apply to face, wash rinse and dry once daily (may change to QOD if drying) 08/19/19 22 022 Inactive (%covered by insurance) #60ml refill 11 dx: acne Lyrica 100 mg capsule RxNorm: 263034 Take 1 Capsule(s) Oral QHS every night at bedtime Take 1 capsule by mouth once daily at bedtime 08/19/19 22 022 Inactive Lyrica 100 mg capsule RxNorm: 269181 Take 1 Capsule(s) Oral QHS every night at bedtime Take 1 capsule by mouth once daily at bedtime 08/16/19 22 022 Inactive Lyrica 50 mg capsule RxNorm: 793710 Take 1 Capsule(s) Oral QAM every morning Take 1 capsule by mouth once daily 08/16/19 22 022 Inactive Levemir FlexTouch U-100 Insulin 100 unit/mL (3 mL) subcutaneous pen RxNorm: 277187 Inject 86 Unit(s) Subcutaneous BID 08/05/19 22 022 Inactive d/c 83units BID Lyrica 100 mg capsule RxNorm: 010510 Take 1 Capsule(s) Oral QHS every night at bedtime Take 1 capsule by mouth once daily at bedtime 07/14/19 22 022 Inactive Lyrica 50 mg capsule RxNorm: 508765 Take 1 Capsule(s) Oral QAM every morning Take 1 capsule by mouth once daily 07/14/19 22 022 Inactive Levemir FlexTouch U-100 Insulin 100 unit/mL (3 mL) subcutaneous pen RxNorm: 958634 Inject 83 Unit(s) Subcutaneous BID 07/08/19 22 03/21/2 022 Inactive d/c 80units BID Accu-Chek Guide [...] 30 mg tablet,extended release 24 hr RxNorm: 348614 Take 1 Tablet(s) Oral QD 05/05/20 No Stop Date Active hydralazine 50 mg tablet RxNorm: 619688 Take 1 Tablet(s) Oral QID 05/05/20 21 022 Inactive venlafaxine ER 225 mg tablet,extended release 24 hr RxNorm: 248288 Take 1 Tablet(s) Oral QD 05/05/20 Inactive venlafaxine ER 225 mg tablet,extended release 24 hr RxNorm: 830615 Take 1 Tablet(s) Oral QD 05/05/20 022 Inactive hydralazine 50 mg tablet RxNorm: 614316 Take 1 Tablet(s) Oral QID 05/05/20 21 021 Inactive aspirin 81 mg tablet,delayed release RxNorm: 041737 Take 1 Tablet(s) Oral QD 03/31/20 Inactive Zetia 10 mg tablet RxNorm: 424509 Take 1 Tablet(s) Oral QD 03/31/20 Inactive Vitamin D2 1,250 mcg (50,000 unit) capsule RxNorm: 0932400 Take 1 Capsule(s) Oral QW once a week x 12 weeks 03/31/20 Inactive Vitamin D2 1,250 mcg (50,000 unit) capsule RxNorm: 1903241 Take 1 Capsule(s) Oral QW once a week 03/31/20 Inactive Zetia 10 mg tablet RxNorm: 748611 Take 1 Tablet(s) Oral QD 03/31/20 Inactive hydralazine 25 mg tablet RxNorm: 641997 Take 1 Tablet(s) Oral QID 03/31/20 021 Inactive hydralazine 25 mg tablet RxNorm: 908392 Take 1 Tablet(s) Oral QID 03/31/20 021 Inactive hydralazine 10 mg tablet RxNorm: 958755 Take 1 Tablet(s) Oral QID 03/03/20 021 Inactive cephalexin 500 mg tablet RxNorm: 262244 Take 1 Tablet(s) Oral QID 02/27/20 021 Inactive cephalexin 500 mg tablet RxNorm: 479562 Take 1 Tablet(s) Oral QID 02/27/20 021 Inactive lisinopril 40 mg tablet RxNorm: 167998 Take 1 Tablet(s) Oral QD 02/11/20 21 023 Inactive Eliquis 5 mg tablet RxNorm: 9477247 Take 1 Tablet(s) Oral BID 01/05/20 21 022 Inactive Eliquis 5 mg tablet RxNorm: 4732154 Take 2 Tablet(s) Oral QD 01/01/20 21 021 Inactive Lyrica 50 mg capsule RxNorm: 153188 Take 1 Capsule(s) Oral QAM every morning 12/24/19 21 021 Inactive Lyrica 100 mg capsule RxNorm: 089750 Take 1 Capsule(s) Oral QHS every night at bedtime 12/24/19 021 Inactive clotrimazole 1 % topical cream RxNorm: 610038 Apply to right foot and toes Topical BID 12/04/19 21 023 Inactive metoprolol succinate ER 200 mg tablet,extended release 24 hr RxNorm: 221569 Take 1 Tablet(s) Oral QD 12/04/19 21 023 Inactive ciprofloxacin 500 mg tablet RxNorm: 987829 Take 1 Tablet(s) Oral QD 11/30/19 021 Inactive DX ofloxacin otic drops Accu-Chek Guide test strips RxNorm: USE 1 TO CHECK GLUCOSE 4 TIMES DAILY AND NEEDED 11/15/19 21 023 Inactive Blood Glucose Test strips RxNorm: Use 1 Test Strip QID at PRN 11/05/19 21 023 Inactive E11.42 lisinopril 30 mg tablet RxNorm: 765409 Take 1 Tablet(s) Oral QD 10/30/19 021 Inactive lisinopril 20 mg tablet RxNorm: 105891 Take 1 Tablet(s) Oral QD 10/23/19 21 021 Inactive lisinopril 20 mg tablet RxNorm: 370948 Take 1 Tablet(s) Oral QD 10/23/19 21 021 Inactive lisinopril 10 mg tablet RxNorm: 410295 Take 1 Tablet(s) Oral QD 10/02/19 21 021 Inactive icosapent ethyl 1 gram capsule RxNorm: 0059198 Take 2 Capsule(s) (2 gm) Oral BID with meals 09/12/19 21 022 Inactive Okay to dispense one 2gm tab if you have that available. icosapent ethyl 1 gram capsule RxNorm: 3506054 Take 2 Capsule(s) Oral BID 09/12/19 21 021 Inactive Okay to dispense one 2gm tab if you have that available. amlodipine 10 mg tablet RxNorm: 896191 Take 1 Tablet(s) Oral QD 09/04/19 022 Inactive aspirin 81 mg tablet,delayed release RxNorm: 081092 Take 1 Tablet(s) Oral QD 09/04/19 Inactive Levemir FlexTouch U-100 Insulin 100 unit/mL (3 mL) subcutaneous pen RxNorm: 289521 Inject 150 Unit(s) Subcutaneous BID 09/04/19 21 022 Inactive venlafaxine ER 150 mg tablet,extended release 24 hr RxNorm: 685351 Take 1 Tablet(s) Oral QD 09/04/19 Inactive clotrimazole-betame thasone 1 %-0.05 % topical cream RxNorm: 812192 Apply to rash on red area on left abdomen/chest Topical BID 08/10/19 21 021 Inactive amlodipine 5 mg tablet RxNorm: 301488 Take 1 Tablet(s) Oral QD 07/31/19 Inactive cephalexin 500 mg tablet RxNorm: 727107 Take 1 Tablet(s) Oral BID BID - Twice Daily 07/31/19 21 021 Inactive Start 08/01/20 pantoprazole 40 mg tablet,delayed release RxNorm: 483809 Take 1 Tablet(s) Oral QAM every morning 07/08/19 022 Inactive senna 8.6 mg tablet RxNorm: 861984 Take 1 Tablet(s) Oral QD 07/08/19 022 Inactive pravastatin 80 mg tablet RxNorm: 755350 Take 1 Tablet(s) Oral QHS every night at bedtime 07/08/19 022 Inactive carbamazepine 200 mg tablet RxNorm: 194272 Take 1 Tablet(s) Oral BID 07/08/19 022 Inactive torsemide 20 mg tablet RxNorm: 694519 Take 1 Tablet(s) Oral QD 07/08/19 21 023 Inactive clopidogrel 75 mg tablet RxNorm: 794530 Take 1 Tablet(s) Oral QD 07/08/19 021 Inactive Blood Glucose Test strips RxNorm: Use 1 Test Strip QID at PRN 07/08/19 21 Inactive E11.42 Novolog Flexpen U-100 Insulin aspart 100 unit/mL (3 mL) subcutaneous RxNorm: 3843050 Administer per sliding scale Milliliter(s) Subcutaneous TID 151-200: 10 u; 201-250: 20 u; 251-300: 30 u; 301-350: 40 u; 351-400: 50 u. 07/08/19 21 022 Inactive lisinopril 5 mg tablet RxNorm: 846739 Take 1 Tablet(s) Oral QD 07/08/19 021 Inactive Novolog Flexpen U-100 Insulin aspart 100 unit/mL (3 mL) subcutaneous RxNorm: 7721647 Inject 85 Unit(s) Subcutaneous TID 07/08/19 022 Inactive clotrimazole 1 % topical cream RxNorm: 261725 Apply to bilateral groin areas Topical BID 07/08/19 21 022 Inactive metoprolol succinate ER 200 mg tablet,extended release 24 hr RxNorm: 099110 Take 1 Tablet(s) Oral QD 07/08/19 021 Inactive Vitamin D3 25 mcg (1,000 unit) tablet RxNorm: 627357 Take 1 Tablet(s) Oral QD 07/08/19 021 Inactive isosorbide dinitrate 30 mg tablet RxNorm: 508383 Take 1 Tablet(s) Oral QD 07/08/19 021 Inactive Levemir FlexTouch U-100 Insulin 100 unit/mL (3 mL) subcutaneous pen RxNorm: 804770 Inject 140 Unit(s) Subcutaneous BID 07/08/19 021 Inactive venlafaxine 75 mg tablet RxNorm: 735814 Take 1 Tablet(s) Oral QD 07/08/19 21 021 Inactive acetaminophen 500 mg tablet RxNorm: 207858 Take 1 Tablet(s) Oral TID as needed for headache 06/18/19 21 021 Inactive acetaminophen 500 mg tablet RxNorm: 129807 Take 1 Tablet(s) Oral TID as needed for headache 06/18/19 21 021 Inactive Lyrica 100 mg capsule RxNorm: 753238 Take 1 Capsule(s) Oral QHS every night at bedtime 06/11/19 21 021 Inactive Lyrica 50 mg capsule RxNorm: 510411 Take 1 Capsule(s) Oral QAM every morning 06/10/19 21 021 Inactive hydrocortisone 2.5 % topical cream RxNorm: 422990 Apply to bilateral groin creases Topical BID 05/15/20 20 021 Inactive clotrimazole 1 % topical cream RxNorm: 862741 Apply to bilateral groin areas Topical BID 05/15/20 20 021 Inactive Lyrica 50 mg capsule RxNorm: 217663 Take 1 Capsule(s) Oral QAM every morning 05/14/20 20 020 Inactive Lyrica 100 mg capsule RxNorm: 016317 Take 1 Capsule(s) Oral QHS every night [...] Inactive Nystop 100,000 unit/gram topical powder RxNorm: 983716 Apply to abd folds, under breasts and L side of groin Topical BID x 14 days, then BID PRN 04/08/20 20 11/17/2 021 Inactive dx: yeast dermatitis Lyrica 100 mg capsule RxNorm: 128488 Take 1 Capsule(s) Oral QHS every night at bedtime 03/13/20 20 Inactive Lyrica 50 mg capsule RxNorm: 043679 Take 1 Capsule(s) Oral QAM every morning 03/13/20 20 Inactive ketoconazole 2 % shampoo RxNorm: 900427 Apply Topical two times a week with showers 03/11/20 Inactive cholecalciferol (vitamin D3) 50 mcg (2,000 unit) tablet RxNorm: 848234 Take 1 Tablet(s) Oral QD 03/11/20 Inactive Zetia 10 mg tablet RxNorm: 976463 Take 1 Tablet(s) Oral QD 03/07/20 Inactive Zetia 10 mg tablet RxNorm: 663690 Take 1 Tablet(s) Oral QD 03/07/20 Inactive Lyrica 50 mg capsule RxNorm: 973630 Take 1 Capsule(s) Oral QAM every morning 02/15/20 20 Inactive Lyrica 100 mg capsule RxNorm: 912159 Take 1 Capsule(s) Oral QHS every night at bedtime 02/15/20 Inactive Lyrica 100 mg capsule RxNorm: 887128 Take 1 Capsule(s) Oral QHS every night at bedtime 02/15/20 Inactive Lyrica 50 mg capsule RxNorm: 988413 Take 1 Capsule(s) Oral QAM every morning 02/15/20 20 Inactive venlafaxine ER 75 mg capsule,extended release 24 hr RxNorm: 235975 Take 3 Capsule(s) Oral QD 06/12/19 Active polyethylene glycol 3350 17 gram/dose oral powder RxNorm: 905451 Take 17=1 capful Gram(s) Oral BID as needed mix with 4-8oz of liquid 06/12/19 Active icosapent ethyl 1 gram capsule RxNorm: 1710777 Take 2 Capsule(s) (2 gm) Oral BID with meals 10/07/19 23 05/22/2 023 Inactive Okay to dispense one 2gm tab if you have that available. metoprolol succinate ER 200 mg tablet,extended release 24 hr RxNorm: 038441 Take 1 Tablet(s) Oral QD 08/12/19 23 Active loperamide 2 mg capsule RxNorm: 876454 Take 1 Capsule(s) Oral QID as needed 06/12/19 22 Active hydralazine 50 mg tablet RxNorm: 768893 Take 1 Tablet(s) Oral QID 08/12/19 23 Active Levemir FlexTouch U-100 Insulin 100 unit/mL (3 mL) subcutaneous pen RxNorm: 821224 Inject 80 Unit(s) Subcutaneous BID 07/14/19 23 023 Inactive Novolog Flexpen U-100 Insulin aspart 100 unit/mL (3 mL) subcutaneous RxNorm: 4144277 Insert 30 Unit(s) Subcutaneous TID with meals [...] 08/11/2022 DEBRIDE NAIL 6 OR MORE CPT-4: 65701 Vital Signs Date Vital 08/11/2022 Blood Pressure 1: 135/90 Code: 8480-6 BMI: 68.9 Code: 63186-4 Heart Rate 1: 78 bpm Code: 8867-4 Height: 5'5 Code: 8302-2 Respiratory Rate: 16 bpm SpO2: 98% Temperature: 36.7 (C) / 98.1 (F) Weight: 414 lbs Code: 3141-9 Reason For Visit No Reason For Visit data Encounters Encounter Performer Location Location Address Codes Date ([address]49) Home or Residence Visit Est Pt - [...] foot[ICD10: S98.131A] Diagnosis: Coronary artery disease involving [place] coronary artery of [place] heart, angina presence unspecified[ICD10: I25.10] Tapan Shirley [facility] [place] [address] [address] [place] [address] CPT-4: 11632 08/11/2022 Plan of Care Planned Activity Notes Codes Status Date Referral: [facility] WPtel: [address], [address] [id number] [place] Referral Records Received 09/21/2022 Patient Education: Patient M edication Summary Completed 08/11/2022 Patient Education: Influenza Vaccine Completed 08/11/2022 Appointment: Tapan Shirley [address]el: [address] [place] F/U 07/14/2022 Appointment: Tapan Shirley [address]el: [address] [place] F/U 02/10/2022 Referral: [facility] WPtel: [address] [facility] [address] [id number] [place] Referral Completed 05/28/2021 Referral: General Cardiology Referral Complet ed 01/03/2021 Referral: General Psychologist Referral Close d Instructions Comment Date Leonid is a?? Male being seen living at [facility]. Initial BPS visit 01/2020. PMHx including DMII, CAD w/ 5 stents, Depression, Seizure Disorder and CKD stage 3. He moved into [facility] in 12/2019 but after a hospitalization 05/2021 he moved [facility] to have closer nursing attention.??Sister Jyotsna involved in his care cell# [phone]??Guardian: Don (tapan met in person 09/01/21), now has Lexii (same group as don)Lab Schedule: Mar-* 10/06/2022 Amputated toe of right foot amputated [...] well. Secondary hypertension Patient has not seen circuit rider - would like patient to still establish with one due to elevated BPs and a complicated cardiac history. Msg sent to referrals to assist. Continue amlodipine 10mg, carvedilol, and chlorthalidone, and lisinopril. Pigment Presser recommended stopping lisinopril and starting olmesartan but this has not been implemented. Patient to f/u with valve setter.?? Ischemic Heart Disease Should be followed by valve setter - staff to assist with making an appt. to f/u on 05/2022 visit (renal u/s ordered but DON unsure if it was completed).?? . 08/11/2022
--- OUTSIDE RECORDS SUMMARY | 2022-11-09 23:39 | XMS_ITS | CCD ---
Author Name Unknown Organization Unknown Care Team Providers Care Chemistry Teacher Name Role Phone Tapan Shirley PA-C Primary Care Provider Unavailabl e Tapan Shirley PA-C Chronic Care Management Unavaila ble Summary Purpose DataExchange Insurance Providers Payer name Policy type / Coverage type Covered democrat ID Effective Begin Date Effective End Date Medicare OR Medicare Part B [id number] Unknown Unknown Medicaid OR Medicare Part B [id number] Unknown Unknown Family history Sister Brittany Suggs [...] Jail 09/03/19 [address]: 0840626 Non-Smoker / No History of Smoking 09/02/[address]: 742339367 No Alcohol Consum ption 09/02/2020 Allergies, Adverse Reactions, Alerts Substance Reaction Codes Entered Date Inactivated Date Status LISINOPRIL RxNorm: 84652 02/12/2020 No Inactive Da te Active Metformin HCl Unknown 02/12/2020 No Inactive Cristiano e Active Problems Condition Codes Effective Dates Condition St atus Amputated toe of right foot ICD-10: S98. 131A ICD-9: 895.0 08/11/2022 Active Coronary artery disease invo lving new [...] immunization ICD-10: Z23 ICD-9: V03.89 02/10/2022 Resolved retirement (current) use of insulin ICD-10: Z79.4 02/10 [...] Fill Instructions carvedilol 25 mg tablet RxNorm: 950430 Take 1 Tablet(s) Oral QD 08/25/19 23 024 Active pregabalin 150 mg capsule RxNorm: 739006 1 Capsule(s) Oral HS at bed time 08/18/19 23 023 Active pregabalin 100 mg capsule RxNorm: 746463 1 Capsule(s) Oral QAM every morning 08/18/19 23 023 Active carvedilol 25 mg tablet RxNorm: 217300 1 Tablet(s) Oral QD 07/28/19 23 023 Inactive lisinopril 20 mg tablet RxNorm: 665847 Give 1 Tablet(s) Oral QD 07/28/19 23 023 Inactive Lyrica 150 mg capsule RxNorm: 123509 Take 1 Capsule(s) Oral QHS every night at bedtime 07/19/19 23 023 Inactive d/c 100mg dose Diflucan 150 mg tablet RxNorm: 344434 Take 1 Tablet(s) Oral QD repeat on day 3 and 6 07/19/19 23 023 Inactive pregabalin 100 mg capsule RxNorm: 075540 Take 1 Capsule(s) Oral QAM every morning 07/19/19 23 023 Inactive Humulin R Regular U-100 Insulin 100 unit/mL injection solution RxNorm: 370111 85 Unit(s) Injection TID 07/13/19 23 023 Inactive gatifloxacin 0.5 % eye drops RxNorm: 283793 Instill 1 Drop(s) as directed TID Instill 1 drop in to affected eye(s) starting 1 day prior to surgery and continue until gone (do not exceed 4 weeks). 07/13/19 23 023 Inactive carvedilol 25 mg tablet RxNorm: 894844 2 Tablet(s) Oral BID 07/13/19 023 Inactive ketorolac 0.5 % eye drops RxNorm: 181620 Instill 1 Drop(s) as directed QID Instill 1 drop into affected eye(s) 4 times daily starting 1 day prior to surgery and continue until gone (do not exceed 4 weeks). 07/13/19 023 Inactive Diflucan 150 mg tablet RxNorm: 584303 Take 1 Tablet(s) Oral QD repeat on day 3 and 6 06/30/19 23 023 Inactive Accu-Chek Guide test strips RxNorm: Use 1 Test Strip QID Use 1 test strip to monitor blood glucose 4 times daily and as needed. Dx:E11.42. 06/23/19 23 023 Inactive ok to substitute with any covered alternative test strip dextromethorphan-gu aifenesin 10 mg-100 mg/5 mL oral liquid RxNorm: 753782 Take 10 Milliliter(s) Oral every 4 hours as needed for cough 06/19/19 23 023 Inactive dextromethorphan-gu aifenesin 10 mg-100 mg/5 mL oral liquid RxNorm: 536354 Take 10 Milliliter(s) Oral every 4 hours as needed for cough 06/19/19 023 Inactive Lyrica 150 mg capsule RxNorm: 464674 Take 1 Capsule(s) Oral QHS every night at bedtime 06/18/19 023 Inactive d/c 100mg dose aripiprazole 15 mg tablet RxNorm: 888039 1/2 TAB (7.5MG) ORALLY DAILY (DX:MAJOR DEPRESSIVE DISORDER) 06/05/19 023 Inactive pregabalin 100 mg capsule RxNorm: 451456 1 Capsule(s) Oral QAM every morning 06/02/19 023 Inactive Banophen 50 mg capsule RxNorm: 7925378 Take 1 Capsule(s) Oral Q6H every 6 hours as needed 05/19/19 No Stop Date Active Novolog Flexpen U-100 Insulin aspart 100 unit/mL (3 mL) subcutaneous RxNorm: 7020446 Inject 10 Unit(s) Subcutaneous QHS every night at bedtime with nighttime snack 04/08/20 022 Inactive Novolog Flexpen U-100 Insulin aspart 100 unit/mL (3 mL) subcutaneous RxNorm: 4455657 Inject 42 Unit(s) Subcutaneous TID in addition to sliding scale 04/08/20 022 Inactive d/c 36u albuterol sulfate HFA 90 mcg/actuation aerosol inhaler RxNorm: 5625030 Take 2 Puff(s) Inhalation Q4H every four hours as needed as needed for SOB, cough, or wheezing 04/07/20 030 Active Banophen 50 mg capsule RxNorm: 4804323 Take 1 Capsule(s) Oral Q6H every 6 hours as needed 04/06/20 023 Inactive diphenhydramine 50 mg tablet RxNorm: 6030968 Take 1 Tablet(s) Oral Q6H every 6 hours as needed 04/06/20 022 Inactive diphenhydramine 50 mg tablet RxNorm: 2922321 1 Tablet(s) Oral Q6H every 6 hours as needed 04/06/20 022 Inactive Abilify 15 mg tablet RxNorm: 624805 /2 Tablet(s) Oral QD 03/10/2007 06/20/2 023 Inactive Shingrix (PF) 50 mcg/0.5 mL intramuscular suspension, kit RxNorm: 9475914 Administer 1/2 Milliliter(s) Intramuscular QD one time shingrix step 2 ( step 1 given 11/04/21) WITH needle - Nursing please administer upon arrival and once administered post a bridge message with date of administration, formulation technician, expiration date, and lot# so we can update MIIC 02/18/20 22 022 Inactive dispense with needle Shingrix (PF) 50 mcg/0.5 mL intramuscular suspension, kit RxNorm: 3850647 Administer 1/2 Milliliter(s) Intramuscular QD one time shingrix step 2 ( step 1 given 11/04/21) WITH needle - Nursing please administer upon arrival and once administered post a bridge message with date of administration, formulation technician, expiration date, and lot# so we can update MIIC 02/18/20 22 022 Inactive dispense with needle acetaminophen 500 mg tablet RxNorm: 215342 Take 1 Tablet(s) Oral TID 01/08/20 22 023 Active d/c PRN order polyethylene glycol 3350 17 gram/dose oral powder RxNorm: 410642 Take 17=1 capful Gram(s) Oral QD mix with 4-8oz of liquid 01/08/20 22 023 Active take this in addition to BID prn order Lyrica 100 mg capsule RxNorm: 009754 Take 1 Capsule(s) Oral QAM every morning 01/08/20 22 022 Inactive d/c 50mg dose Lyrica 150 mg capsule RxNorm: 274033 Take 1 Capsule(s) Oral QHS every night at bedtime 01/08/20 22 023 Inactive d/c 100mg dose Abilify 5 mg tablet RxNorm: 771856 Take 1 Tablet(s) Oral QD take 1 tab po QD #30 refill 5 dx: MDD 12/12/19 22 022 Inactive Abilify 5 mg tablet RxNorm: 932773 Take 1 Tablet(s) Oral QD take 1 tab po QD #30 refill 5 dx: MDD 12/12/19 22 022 Inactive chlorthalidone 25 mg tablet RxNorm: 964038 Take 1 Tablet(s) Oral QAM every morning 12/10/19 Active Novolog Flexpen U-100 Insulin aspart 100 unit/mL (3 mL) subcutaneous RxNorm: 8291286 Inject 42 Unit(s) Subcutaneous TID in addition to sliding scale 12/10/19 Inactive d/c 36u pregabalin 50 mg capsule RxNorm: 024111 Take 1 Capsule(s) Oral QAM every morning 11/12/19 Inactive tetanus-diphtheria toxoids-Td 2 Lf unit-2 Lf unit/0.5 mL IM suspension RxNorm: 139 Take 0.5 Miscellaneous Intramuscular 11/12/19 Inactive need tdap - nursing to administer upon arrival pregabalin 50 mg capsule RxNorm: 452801 Take 1 Capsule(s) Oral QAM every morning 10/16/19 022 Inactive pregabalin 50 mg capsule RxNorm: 726538 Take 1 Capsule(s) Oral QAM every morning 10/16/19 022 Inactive pregabalin 50 mg capsule RxNorm: 347037 1 Capsule(s) Oral QAM every morning 10/15/19 022 Inactive Shingrix (PF) 50 mcg/0.5 mL intramuscular suspension, kit RxNorm: 5657404 Administer 1/2 Milliliter(s) Intramuscular one time Nursing please administer upon arrival and once administered post a bridge message with date of administration, formulation 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 10/09/19 22 022 Inactive shingrix step 1 Shingrix (PF) 50 mcg/0.5 mL intramuscular suspension, kit RxNorm: 1101029 Administer 1/2 Milliliter(s) Intramuscular one time Nursing please administer upon arrival and once administered post a bridge message with date of administration, formulation 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 10/09/19 22 022 Inactive shingrix step 1 cholecalciferol (vitamin D3) 1,250 mcg (50,000 unit) capsule RxNorm: 051142 Take 1 Capsule(s) Oral QW once a [...] aspart 100 unit/mL (3 mL) subcutaneous RxNorm: 1165736 Inject 10 Unit(s) Subcutaneous QHS every night at bedtime with nighttime snack 10/08/19 22 Inactive Shingrix (PF) 50 mcg/0.5 mL intramuscular suspension, kit RxNorm: 0834052 ADMINISTER 2-DOSE SERIES PER CDC GUIDELINES 10/08/19 22 Active Shingrix (PF) 50 mcg/0.5 mL intramuscular suspension, kit RxNorm: 5097783 ADMINISTER 2-DOSE SERIES PER CDC GUIDELINES 10/08/19 22 Inactive Novolog Flexpen U-100 Insulin aspart 100 unit/mL (3 mL) subcutaneous RxNorm: 2375517 Inject 36 Unit(s) Subcutaneous TID in addition to sliding scale 10/08/19 22 Inactive Novofine Autocover 30 gauge x 1/3 needle RxNorm: Use 1 Miscellaneous UD as directed Use 1 needle as directed to administer insulin 5 times a day Dx:E11.42. 10/03/19 22 Inactive ok to substitute with any covered alternative pen needle benzoyl peroxide 10 % topical cleanser RxNorm: 956827 Apply 1 Application Topical QD apply to face, wash rinse and dry once daily (may change to QOD if drying) 08/19/19 22 Inactive (%covered by insurance) #60ml refill 11 dx: acne benzoyl peroxide 10 % topical cleanser RxNorm: 056319 Apply 1 Application Topical QD apply to face, wash rinse and dry once daily (may change to QOD if drying) 08/19/19 22 022 Inactive (%covered by insurance) #60ml refill 11 dx: acne benzoyl peroxide 10 % topical cleanser RxNorm: 818140 Apply 1 Application Topical QD apply to face, wash rinse and dry once daily (may change to QOD if drying) 08/19/19 22 022 Inactive (%covered by insurance) #60ml refill 11 dx: acne Lyrica 50 mg capsule RxNorm: 836517 Take 1 Capsule(s) Oral QAM every morning Take 1 capsule by mouth once daily 08/19/19 22 022 Inactive benzoyl peroxide 10 % topical cleanser RxNorm: 254566 Apply 1 Application Topical QD apply to face, wash rinse and dry once daily (may change to QOD if drying) 08/19/19 22 022 Inactive (%covered by insurance) #60ml refill 11 dx: acne Lyrica 100 mg capsule RxNorm: 474060 Take 1 Capsule(s) Oral QHS every night at bedtime Take 1 capsule by mouth once daily at bedtime 08/19/19 22 022 Inactive Lyrica 100 mg capsule RxNorm: 090593 Take 1 Capsule(s) Oral QHS every night at bedtime Take 1 capsule by mouth once daily at bedtime 08/16/19 22 022 Inactive Lyrica 50 mg capsule RxNorm: 243423 Take 1 Capsule(s) Oral QAM every morning Take 1 capsule by mouth once daily 08/16/19 Inactive Levemir FlexTouch U-100 Insulin 100 unit/mL (3 mL) subcutaneous pen RxNorm: 866018 Inject 86 Unit(s) Subcutaneous BID 08/05/19 22 022 Inactive d/c 83units BID Lyrica 100 mg capsule RxNorm: 626337 Take 1 Capsule(s) Oral QHS every night at bedtime Take 1 capsule by mouth once daily at bedtime 07/14/19 22 022 Inactive Lyrica 50 mg capsule RxNorm: 387829 Take 1 Capsule(s) Oral QAM every morning Take 1 capsule by mouth once daily 07/14/19 Inactive Levemir FlexTouch U-100 Insulin 100 unit/mL (3 mL) subcutaneous pen RxNorm: 173733 Inject 83 Unit(s) Subcutaneous BID 07/08/19 022 Inactive d/c 80units BID Accu-Chek Guide [...] 30 mg tablet,extended release 24 hr RxNorm: 864321 Take 1 Tablet(s) Oral QD 05/05/20 No Stop Date Active hydralazine 50 mg tablet RxNorm: 789090 Take 1 Tablet(s) Oral QID 12 Inactive venlafaxine ER 225 mg tablet,extended release 24 hr RxNorm: 925750 Take 1 Tablet(s) Oral QD 05/05/20 21 Inactive venlafaxine ER 225 mg tablet,extended release 24 hr RxNorm: 390264 Take 1 Tablet(s) Oral QD 05/05/20 022 Inactive hydralazine 50 mg tablet RxNorm: 359721 Take 1 Tablet(s) Oral QID 05/05/20 Inactive aspirin 81 mg tablet,delayed release RxNorm: 475975 Take 1 Tablet(s) Oral QD 03/31/20 Inactive Zetia 10 mg tablet RxNorm: 143344 Take 1 Tablet(s) Oral QD 03/31/20 Inactive Vitamin D2 1,250 mcg (50,000 unit) capsule RxNorm: 2903423 Take 1 Capsule(s) Oral QW once a week x 12 weeks 03/31/20 Inactive Vitamin D2 1,250 mcg (50,000 unit) capsule RxNorm: 0937019 Take 1 Capsule(s) Oral QW once a week 03/31/20 Inactive Zetia 10 mg tablet RxNorm: 824120 Take 1 Tablet(s) Oral QD 03/31/20 Inactive hydralazine 25 mg tablet RxNorm: 359366 Take 1 Tablet(s) Oral QID 03/31/20 Inactive hydralazine 25 mg tablet RxNorm: 444654 Take 1 Tablet(s) Oral QID 03/31/20 Inactive hydralazine 10 mg tablet RxNorm: 116123 Take 1 Tablet(s) Oral QID 03/03/20 Inactive cephalexin 500 mg tablet RxNorm: 735158 Take 1 Tablet(s) Oral QID 02/27/20 Inactive cephalexin 500 mg tablet RxNorm: 185732 Take 1 Tablet(s) Oral QID 02/27/20 Inactive lisinopril 40 mg tablet RxNorm: 292573 Take 1 Tablet(s) Oral QD 02/11/20 023 Inactive Eliquis 5 mg tablet RxNorm: 8693387 Take 1 Tablet(s) Oral BID 01/05/20 21 022 Inactive Eliquis 5 mg tablet RxNorm: 4274497 Take 2 Tablet(s) Oral QD 01/01/20 21 021 Inactive Lyrica 50 mg capsule RxNorm: 978990 Take 1 Capsule(s) Oral QAM every morning 12/24/19 21 021 Inactive Lyrica 100 mg capsule RxNorm: 565299 Take 1 Capsule(s) Oral QHS every night at bedtime 12/24/19 021 Inactive clotrimazole 1 % topical cream RxNorm: 523546 Apply to right foot and toes Topical BID 12/04/19 21 023 Inactive metoprolol succinate ER 200 mg tablet,extended release 24 hr RxNorm: 165852 Take 1 Tablet(s) Oral QD 12/04/19 023 Inactive ciprofloxacin 500 mg tablet RxNorm: 586490 Take 1 Tablet(s) Oral QD 11/30/19 021 Inactive DX ofloxacin otic drops Accu-Chek Guide test strips RxNorm: USE 1 TO CHECK GLUCOSE 4 TIMES DAILY AND NEEDED 11/15/19 023 Inactive Blood Glucose Test strips RxNorm: Use 1 Test Strip QID at PRN 11/05/19 21 023 Inactive E11.42 lisinopril 30 mg tablet RxNorm: 281254 Take 1 Tablet(s) Oral QD 10/30/19 021 Inactive lisinopril 20 mg tablet RxNorm: 385304 Take 1 Tablet(s) Oral QD 10/23/19 021 Inactive lisinopril 20 mg tablet RxNorm: 113931 Take 1 Tablet(s) Oral QD 10/23/19 21 021 Inactive lisinopril 10 mg tablet RxNorm: 383009 Take 1 Tablet(s) Oral QD 10/02/19 21 021 Inactive icosapent ethyl 1 gram capsule RxNorm: 8153902 Take 2 Capsule(s) (2 gm) Oral BID with meals 09/12/19 Inactive Okay to dispense one 2gm tab if you have that available. icosapent ethyl 1 gram capsule RxNorm: 1676210 Take 2 Capsule(s) Oral BID 09/12/19 21 021 Inactive Okay to dispense one 2gm tab if you have that available. amlodipine 10 mg tablet RxNorm: 217901 Take 1 Tablet(s) Oral QD 09/04/19 21 Inactive aspirin 81 mg tablet,delayed release RxNorm: 103683 Take 1 Tablet(s) Oral QD 09/04/19 Inactive Levemir FlexTouch U-100 Insulin 100 unit/mL (3 mL) subcutaneous pen RxNorm: 550540 Inject 150 Unit(s) Subcutaneous BID 09/04/19 Inactive venlafaxine ER 150 mg tablet,extended release 24 hr RxNorm: 463079 Take 1 Tablet(s) Oral QD 09/04/19 Inactive clotrimazole-betame thasone 1 %-0.05 % topical cream RxNorm: 290932 Apply to rash on red area on left abdomen/chest Topical BID 08/10/19 21 Inactive amlodipine 5 mg tablet RxNorm: 245605 Take 1 Tablet(s) Oral QD 07/31/19 Inactive cephalexin 500 mg tablet RxNorm: 226788 Take 1 Tablet(s) Oral BID BID - Twice Daily 07/31/19 021 Inactive Start 08/01/20 pantoprazole 40 mg tablet,delayed release RxNorm: 616865 Take 1 Tablet(s) Oral QAM every morning 07/08/19 022 Inactive senna 8.6 mg tablet RxNorm: 758652 Take 1 Tablet(s) Oral QD 07/08/19 022 Inactive pravastatin 80 mg tablet RxNorm: 726976 Take 1 Tablet(s) Oral QHS every night at bedtime 07/08/19 022 Inactive carbamazepine 200 mg tablet RxNorm: 728413 Take 1 Tablet(s) Oral BID 07/08/19 21 022 Inactive torsemide 20 mg tablet RxNorm: 963011 Take 1 Tablet(s) Oral QD 07/08/19 21 023 Inactive clopidogrel 75 mg tablet RxNorm: 455701 Take 1 Tablet(s) Oral QD 07/08/19 21 021 Inactive Blood Glucose Test strips RxNorm: Use 1 Test Strip QID at PRN 07/08/19 Inactive E11.42 Novolog Flexpen U-100 Insulin aspart 100 unit/mL (3 mL) subcutaneous RxNorm: 4478116 Administer per sliding scale Milliliter(s) Subcutaneous TID 151-200: 10 u; 201-250: 20 u; 251-300: 30 u; 301-350: 40 u; 351-400: 50 u. 07/08/19 022 Inactive lisinopril 5 mg tablet RxNorm: 239801 Take 1 Tablet(s) Oral QD 07/08/19 021 Inactive Novolog Flexpen U-100 Insulin aspart 100 unit/mL (3 mL) subcutaneous RxNorm: 9147593 Inject 85 Unit(s) Subcutaneous TID 07/08/19 022 Inactive clotrimazole 1 % topical cream RxNorm: 066262 Apply to bilateral groin areas Topical BID 07/08/19 022 Inactive metoprolol succinate ER 200 mg tablet,extended release 24 hr RxNorm: 949740 Take 1 Tablet(s) Oral QD 07/08/19 021 Inactive Vitamin D3 25 mcg (1,000 unit) tablet RxNorm: 060535 Take 1 Tablet(s) Oral QD 07/08/19 021 Inactive isosorbide dinitrate 30 mg tablet RxNorm: 823308 Take 1 Tablet(s) Oral QD 07/08/19 21 021 Inactive Levemir FlexTouch U-100 Insulin 100 unit/mL (3 mL) subcutaneous pen RxNorm: 305172 Inject 140 Unit(s) Subcutaneous BID 07/08/19 21 021 Inactive venlafaxine 75 mg tablet RxNorm: 673830 Take 1 Tablet(s) Oral QD 07/08/19 21 021 Inactive acetaminophen 500 mg tablet RxNorm: 836215 Take 1 Tablet(s) Oral TID as needed for headache 06/18/19 21 021 Inactive acetaminophen 500 mg tablet RxNorm: 231790 Take 1 Tablet(s) Oral TID as needed for headache 06/18/19 21 021 Inactive Lyrica 100 mg capsule RxNorm: 630316 Take 1 Capsule(s) Oral QHS every night at bedtime 06/11/19 21 021 Inactive Lyrica 50 mg capsule RxNorm: 355614 Take 1 Capsule(s) Oral QAM every morning 06/10/19 21 021 Inactive hydrocortisone 2.5 % topical cream RxNorm: 741584 Apply to bilateral groin creases Topical BID 05/15/20 20 021 Inactive clotrimazole 1 % topical cream RxNorm: 964329 Apply to bilateral groin areas Topical BID 05/15/20 20 021 Inactive Lyrica 50 mg capsule RxNorm: 535345 Take 1 Capsule(s) Oral QAM every morning 05/14/20 20 020 Inactive Lyrica 100 mg capsule RxNorm: 941588 Take 1 Capsule(s) Oral QHS every night [...] Inactive Nystop 100,000 unit/gram topical powder RxNorm: 564344 Apply to abd folds, under breasts and L side of groin Topical BID x 14 days, then BID PRN 04/08/20 20 Inactive dx: yeast dermatitis Lyrica 100 mg capsule RxNorm: 836440 Take 1 Capsule(s) Oral QHS every night at bedtime 03/13/20 20 Inactive Lyrica 50 mg capsule RxNorm: 911536 Take 1 Capsule(s) Oral QAM every morning 03/13/20 20 Inactive ketoconazole 2 % shampoo RxNorm: 340358 Apply Topical two times a week with showers 03/11/20 20 Inactive cholecalciferol (vitamin D3) 50 mcg (2,000 unit) tablet RxNorm: 125668 Take 1 Tablet(s) Oral QD 03/11/20 20 Inactive Zetia 10 mg tablet RxNorm: 143396 Take 1 Tablet(s) Oral QD 03/07/20 20 Inactive Zetia 10 mg tablet RxNorm: 537764 Take 1 Tablet(s) Oral QD 03/07/20 20 Inactive Lyrica 50 mg capsule RxNorm: 513433 Take 1 Capsule(s) Oral QAM every morning 02/15/20 20 Inactive Lyrica 100 mg capsule RxNorm: 248200 Take 1 Capsule(s) Oral QHS every night at bedtime 02/15/20 20 Inactive Lyrica 100 mg capsule RxNorm: 192018 Take 1 Capsule(s) Oral QHS every night at bedtime 02/15/20 20 Inactive Lyrica 50 mg capsule RxNorm: 793733 Take 1 Capsule(s) Oral QAM every morning 02/15/20 20 Inactive venlafaxine ER 75 mg capsule,extended release 24 hr RxNorm: 311267 Take 3 Capsule(s) Oral QD 06/12/19 Active polyethylene glycol 3350 17 gram/dose oral powder RxNorm: 491618 Take 17=1 capful Gram(s) Oral BID as needed mix with 4-8oz of liquid 06/12/19 Active icosapent ethyl 1 gram capsule RxNorm: 9394339 Take 2 Capsule(s) (2 gm) Oral BID with meals 10/07/19 23 023 Inactive Okay to dispense one 2gm tab if you have that available. metoprolol succinate ER 200 mg tablet,extended release 24 hr RxNorm: 463053 Take 1 Tablet(s) Oral QD 08/12/19 Active loperamide 2 mg capsule RxNorm: 780595 Take 1 Capsule(s) Oral QID as needed 06/12/19 Active hydralazine 50 mg tablet RxNorm: 400047 Take 1 Tablet(s) Oral QID 08/12/19 Active Levemir FlexTouch U-100 Insulin 100 unit/mL (3 mL) subcutaneous pen RxNorm: 992546 Inject 80 Unit(s) Subcutaneous BID 07/14/19 23 023 Inactive Novolog Flexpen U-100 Insulin aspart 100 unit/mL (3 mL) subcutaneous RxNorm: 9890963 Insert 30 Unit(s) Subcutaneous TID with meals [...] Codes Status Date Referral: [facility] WPtel: [address], [address] [id number] [place] Referral Records Received 09/21/2022 Referral: [facility] WPtel: [address] [id number] [place] Referral Completed 05/28/2021 Referral: General Cardiology [...] a hospitalization 05/2021 he moved to the [facility] to have closer nursing attention.??Sister Jyotsna involved in his care cell# [phone]??Guardian: Don (tapan met in person 09/01/21), now has Lexii (same group as don)Lab Schedule: * 10/06/2022
--- OUTSIDE RECORDS SUMMARY | 2022-11-09 23:39 | XMS_ITS | CCD ---
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 Name Role Phone Tapan Shirley PA-C Primary Care Provider Unavailabl e Tapan Shirley PA-C Chronic Care Management Unavaila ble Summary Purpose DataExchange Insurance Providers Payer name Policy type / Coverage type Covered republican ID Effective Begin Date Effective End Date Medicare [place] Medicare Part B [id number] Unknown Unknown Medicaid [place] Medicare Part B [id number] Unknown Unknown Family history Sister Brittany Suggs [...] Shelter 09/03/[address]: 9175484 Non-Smoker / No History of Smoking 09/02/[address]: 711732256 No Alcohol Consum ption 09/02/2020 Allergies, Adverse Reactions, Alerts Substance Reaction Codes Entered Date Inactivated Date Status LISINOPRIL RxNorm: 09925 02/12/2020 No Inactive Da te Active Metformin [...] 08/11/2022 Active Coronary artery disease invo [place]ving [place] coronary artery of [place] heart, angina presence unspecified ICD-10: I25.10 ICD-9: [...] immunization ICD-10: Z23 ICD-9: V03.89 02/10/2022 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 [...] Fill Instructions torsemide 20 mg tablet RxNorm: 584624 Take 1 Tablet(s) Oral BID 09/09/19 23 024 Active d/c once daily dosing carvedilol 25 mg tablet RxNorm: 528961 Take 1 Tablet(s) Oral QD 08/25/19 23 024 Active pregabalin 150 mg capsule RxNorm: 069451 1 Capsule(s) Oral HS at bed time 08/18/19 23 023 Active pregabalin 100 mg capsule RxNorm: 813978 1 Capsule(s) Oral QAM every morning 08/18/19 23 023 Active lisinopril 20 mg tablet RxNorm: 292424 Give 1 Tablet(s) Oral QD 07/28/19 23 023 Inactive carvedilol 25 mg tablet RxNorm: 180193 1 Tablet(s) Oral QD 07/28/19 23 023 Inactive Lyrica 150 mg capsule RxNorm: 677831 Take 1 Capsule(s) Oral QHS every night at bedtime 07/19/19 23 023 Inactive d/c 100mg dose Diflucan 150 mg tablet RxNorm: 712313 Take 1 Tablet(s) Oral QD repeat on day 3 and 6 07/19/19 23 023 Inactive pregabalin 100 mg capsule RxNorm: 867047 Take 1 Capsule(s) Oral QAM every morning 07/19/19 023 Inactive Humulin R Regular U-100 Insulin 100 unit/mL injection solution RxNorm: 797111 85 Unit(s) Injection TID 07/13/19 23 023 Inactive gatifloxacin 0.5 % eye drops RxNorm: 270728 Instill 1 Drop(s) as directed TID Instill 1 drop in to affected eye(s) starting 1 day prior to surgery and continue until gone (do not exceed 4 weeks). 07/13/19 23 023 Inactive carvedilol 25 mg tablet RxNorm: 495656 2 Tablet(s) Oral BID 07/13/19 023 Inactive ketorolac 0.5 % eye drops RxNorm: 843861 Instill 1 Drop(s) as directed QID Instill 1 drop into affected eye(s) 4 times daily starting 1 day prior to surgery and continue until gone (do not exceed 4 weeks). 07/13/19 23 023 Inactive Diflucan 150 mg tablet RxNorm: 310325 Take 1 Tablet(s) Oral QD repeat on day 3 and 6 06/30/19 23 023 Inactive Accu-Chek Guide test strips RxNorm: Use 1 Test Strip QID Use 1 test strip to monitor blood glucose 4 times daily and as needed. Dx:E11.42. 06/23/19 23 023 Inactive ok to substitute with any covered alternative test strip dextromethorphan-gu aifenesin 10 mg-100 mg/5 mL oral liquid RxNorm: 581012 Take 10 Milliliter(s) Oral every 4 hours as needed for cough 06/19/19 23 023 Inactive dextromethorphan-gu aifenesin 10 mg-100 mg/5 mL oral liquid RxNorm: 663724 Take 10 Milliliter(s) Oral every 4 hours as needed for cough 06/19/19 023 Inactive Lyrica 150 mg capsule RxNorm: 615823 Take 1 Capsule(s) Oral QHS every night at bedtime 06/18/19 023 Inactive d/c 100mg dose aripiprazole 15 mg tablet RxNorm: 012327 /2 TAB (7.5MG) ORALLY DAILY (DX:MAJOR DEPRESSIVE DISORDER) 06/05/19 023 Inactive pregabalin 100 mg capsule RxNorm: 469384 1 Capsule(s) Oral QAM every morning 06/02/19 023 Inactive Banophen 50 mg capsule RxNorm: 2337118 Take 1 Capsule(s) Oral Q6H every 6 hours as needed 05/19/19 23 No Stop Date Active Novolog Flexpen U-100 Insulin aspart 100 unit/mL (3 mL) subcutaneous RxNorm: 6877000 Inject 10 Unit(s) Subcutaneous QHS every night at bedtime with nighttime snack 04/08/20 022 Inactive Novolog Flexpen U-100 Insulin aspart 100 unit/mL (3 mL) subcutaneous RxNorm: 2094644 Inject 42 Unit(s) Subcutaneous TID in addition to sliding scale 04/08/20 022 Inactive d/c 36u albuterol sulfate HFA 90 mcg/actuation aerosol inhaler RxNorm: 6261050 Take 2 Puff(s) Inhalation Q4H every four hours as needed as needed for SOB, cough, or wheezing 04/07/20 030 Active Banophen 50 mg capsule RxNorm: 3495336 Take 1 Capsule(s) Oral Q6H every 6 hours as needed 04/06/20 023 Inactive diphenhydramine 50 mg tablet RxNorm: 7403546 Take 1 Tablet(s) Oral Q6H every 6 hours as needed 04/06/20 22 022 Inactive diphenhydramine 50 mg tablet RxNorm: 0006373 1 Tablet(s) Oral Q6H every 6 hours as needed 04/06/20 22 022 Inactive Abilify 15 mg tablet RxNorm: 147705 1/2 Tablet(s) Oral QD 03/10/20 22 023 Inactive Shingrix (PF) 50 mcg/0.5 mL intramuscular suspension, kit RxNorm: 2963753 Administer 1/2 Milliliter(s) Intramuscular QD one time shingrix step 2 ( step 1 given 11/04/21) WITH needle - Nursing please administer upon arrival and once administered post a 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, 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, 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, and lot# so we can update MIIC 02/18/20 22 022 Inactive dispense with needle Shingrix (PF) 50 mcg/0.5 mL intramuscular suspension, kit RxNorm: 1990118 Administer 1/2 Milliliter(s) Intramuscular QD one time shingrix step 2 ( step 1 given 11/04/21) WITH needle - Nursing please administer upon arrival and once administered post a bridge message 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, 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, 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, and lot# so we can update MIIC 02/18/20 22 022 Inactive dispense with needle acetaminophen 500 mg tablet RxNorm: 188071 Take 1 Tablet(s) Oral TID 01/08/20 22 023 Active d/c PRN order polyethylene glycol 3350 17 gram/dose oral powder RxNorm: 199372 Take 17=1 capful Gram(s) Oral QD mix with 4-8oz of liquid 01/08/20 22 023 Active take this in addition to BID prn order Lyrica 100 mg capsule RxNorm: 015708 Take 1 Capsule(s) Oral QAM every morning 01/08/20 22 022 Inactive d/c 50mg dose Lyrica 150 mg capsule RxNorm: 998070 Take 1 Capsule(s) Oral QHS every night at bedtime 01/08/20 22 023 Inactive d/c 100mg dose Abilify 5 mg tablet RxNorm: 397561 Take 1 Tablet(s) Oral QD take 1 tab po QD #30 refill 5 dx: MDD 12/12/19 22 022 Inactive Abilify 5 mg tablet RxNorm: 183559 Take 1 Tablet(s) Oral QD take 1 tab po QD #30 refill 5 dx: MDD 12/12/19 22 022 Inactive chlorthalidone 25 mg tablet RxNorm: 217955 Take 1 Tablet(s) Oral QAM every morning 12/10/19 22 023 Active Novolog Flexpen U-100 Insulin aspart 100 unit/mL (3 mL) subcutaneous RxNorm: 9854504 Inject 42 Unit(s) Subcutaneous TID in addition to sliding scale 12/10/19 22 022 Inactive d/c 36u pregabalin 50 mg capsule RxNorm: 687413 Take 1 Capsule(s) Oral QAM every morning 11/12/19 22 022 Inactive tetanus-diphtheria toxoids-Td 2 Lf unit-2 Lf unit/0.5 mL IM suspension RxNorm: 139 Take 0.5 Miscellaneous Intramuscular 11/12/19 22 022 Inactive need tdap - nursing to administer upon arrival pregabalin 50 mg capsule RxNorm: 065390 Take 1 Capsule(s) Oral QAM every morning 10/16/19 22 022 Inactive pregabalin 50 mg capsule RxNorm: 799262 Take 1 Capsule(s) Oral QAM every morning 10/16/19 22 022 Inactive pregabalin 50 mg capsule RxNorm: 423927 1 Capsule(s) Oral QAM every morning 10/15/19 22 022 Inactive Shingrix (PF) 50 mcg/0.5 mL intramuscular suspension, kit RxNorm: 2211997 Administer 1/2 Milliliter(s) Intramuscular one time Nursing please administer upon arrival and once administered post a bridge message 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 10/09/19 22 022 Inactive shingrix step 1 cholecalciferol (vitamin D3) 1,250 mcg (50,000 unit) capsule RxNorm: 847791 Take 1 Capsule(s) Oral QW once a [...] aspart 100 unit/mL (3 mL) subcutaneous RxNorm: 7177159 Inject 10 Unit(s) Subcutaneous QHS every night at bedtime with nighttime snack 10/08/19 22 022 Inactive Shingrix (PF) 50 mcg/0.5 mL intramuscular suspension, kit RxNorm: 0709016 ADMINISTER 2-DOSE SERIES PER CDC GUIDELINES 10/08/19 22 022 Active Shingrix (PF) 50 mcg/0.5 mL intramuscular suspension, kit RxNorm: 2334158 ADMINISTER 2-DOSE SERIES PER CDC GUIDELINES 10/08/19 22 022 Inactive Novolog Flexpen U-100 Insulin aspart 100 unit/mL (3 mL) subcutaneous RxNorm: 7097126 Inject 36 Unit(s) Subcutaneous TID in addition to sliding scale 10/08/19 22 Inactive Novofine Autocover 30 gauge x 1/3 needle RxNorm: Use 1 Miscellaneous UD as directed Use 1 needle as directed to administer insulin 5 times a day Dx:E11.42. 10/03/19 22 022 Inactive ok to substitute with any covered alternative pen needle benzoyl peroxide 10 % topical cleanser RxNorm: 677496 Apply 1 Application Topical QD apply to face, wash rinse and dry once daily (may change to QOD if drying) 08/19/19 22 022 Inactive (%covered by insurance) #60ml refill 11 dx: acne benzoyl peroxide 10 % topical cleanser RxNorm: 091168 Apply 1 Application Topical QD apply to face, wash rinse and dry once daily (may change to QOD if drying) 08/19/19 22 022 Inactive (%covered by insurance) #60ml refill 11 dx: acne benzoyl peroxide 10 % topical cleanser RxNorm: 721368 Apply 1 Application Topical QD apply to face, wash rinse and dry once daily (may change to QOD if drying) 08/19/19 022 Inactive (%covered by insurance) #60ml refill 11 dx: acne Lyrica 50 mg capsule RxNorm: 205468 Take 1 Capsule(s) Oral QAM every morning Take 1 capsule by mouth once daily 08/19/19 022 Inactive benzoyl peroxide 10 % topical cleanser RxNorm: 263070 Apply 1 Application Topical QD apply to face, wash rinse and dry once daily (may change to QOD if drying) 08/19/19 022 Inactive (%covered by insurance) #60ml refill 11 dx: acne Lyrica 100 mg capsule RxNorm: 294224 Take 1 Capsule(s) Oral QHS every night at bedtime Take 1 capsule by mouth once daily at bedtime 08/19/19 22 022 Inactive Lyrica 100 mg capsule RxNorm: 742763 Take 1 Capsule(s) Oral QHS every night at bedtime Take 1 capsule by mouth once daily at bedtime 08/16/19 22 022 Inactive Lyrica 50 mg capsule RxNorm: 514902 Take 1 Capsule(s) Oral QAM every morning Take 1 capsule by mouth once daily 08/16/19 22 022 Inactive Levemir FlexTouch U-100 Insulin 100 unit/mL (3 mL) subcutaneous pen RxNorm: 738871 Inject 86 Unit(s) Subcutaneous BID 08/05/19 22 022 Inactive d/c 83units BID Lyrica 100 mg capsule RxNorm: 848067 Take 1 Capsule(s) Oral QHS every night at bedtime Take 1 capsule by mouth once daily at bedtime 07/14/19 22 Inactive Lyrica 50 mg capsule RxNorm: 067599 Take 1 Capsule(s) Oral QAM every morning Take 1 capsule by mouth once daily 07/14/19 22 Inactive Levemir FlexTouch U-100 Insulin 100 unit/mL (3 mL) subcutaneous pen RxNorm: 824992 Inject 83 Unit(s) Subcutaneous BID 07/08/19 22 [...] 30 mg tablet,extended release 24 hr RxNorm: 181609 Take 1 Tablet(s) Oral QD 05/05/20 No Stop Date Active hydralazine 50 mg tablet RxNorm: 240913 Take 1 Tablet(s) Oral QID 05/05/20 Inactive venlafaxine ER 225 mg tablet,extended release 24 hr RxNorm: 342048 Take 1 Tablet(s) Oral QD 05/05/20 Inactive venlafaxine ER 225 mg tablet,extended release 24 hr RxNorm: 089116 Take 1 Tablet(s) Oral QD 05/05/20 Inactive hydralazine 50 mg tablet RxNorm: 796746 Take 1 Tablet(s) Oral QID 05/05/20 Inactive aspirin 81 mg tablet,delayed release RxNorm: 205669 Take 1 Tablet(s) Oral QD 03/31/20 Inactive Zetia 10 mg tablet RxNorm: 029624 Take 1 Tablet(s) Oral QD 03/31/20 Inactive Vitamin D2 1,250 mcg (50,000 unit) capsule RxNorm: 7671158 Take 1 Capsule(s) Oral QW once a week x 12 weeks 03/31/20 Inactive Vitamin D2 1,250 mcg (50,000 unit) capsule RxNorm: 0446521 Take 1 Capsule(s) Oral QW once a week 03/31/20 Inactive Zetia 10 mg tablet RxNorm: 658197 Take 1 Tablet(s) Oral QD 03/31/20 Inactive hydralazine 25 mg tablet RxNorm: 929348 Take 1 Tablet(s) Oral QID 03/31/20 21 Inactive hydralazine 25 mg tablet RxNorm: 384343 Take 1 Tablet(s) Oral QID 03/31/20 Inactive hydralazine 10 mg tablet RxNorm: 746945 Take 1 Tablet(s) Oral QID 03/03/20 21 021 Inactive cephalexin 500 mg tablet RxNorm: 177470 Take 1 Tablet(s) Oral QID 02/27/20 021 Inactive cephalexin 500 mg tablet RxNorm: 932864 Take 1 Tablet(s) Oral QID 02/27/20 021 Inactive lisinopril 40 mg tablet RxNorm: 130783 Take 1 Tablet(s) Oral QD 02/11/20 023 Inactive Eliquis 5 mg tablet RxNorm: 9431950 Take 1 Tablet(s) Oral BID 01/05/20 21 022 Inactive Eliquis 5 mg tablet RxNorm: 5774127 Take 2 Tablet(s) Oral QD 01/01/20 021 Inactive Lyrica 50 mg capsule RxNorm: 886644 Take 1 Capsule(s) Oral QAM every morning 12/24/19 021 Inactive Lyrica 100 mg capsule RxNorm: 252224 Take 1 Capsule(s) Oral QHS every night at bedtime 12/24/19 021 Inactive clotrimazole 1 % topical cream RxNorm: 143301 Apply to right foot and toes Topical BID 12/04/19 21 023 Inactive metoprolol succinate ER 200 mg tablet,extended release 24 hr RxNorm: 286300 Take 1 Tablet(s) Oral QD 12/04/19 023 Inactive ciprofloxacin 500 mg tablet RxNorm: 545991 Take 1 Tablet(s) Oral QD 11/30/19 021 Inactive DX ofloxacin otic drops Accu-Chek Guide test strips RxNorm: USE 1 TO CHECK GLUCOSE 4 TIMES DAILY AND NEEDED 11/15/19 21 023 Inactive Blood Glucose Test strips RxNorm: Use 1 Test Strip QID at PRN 11/05/19 21 023 Inactive E11.42 lisinopril 30 mg tablet RxNorm: 960251 Take 1 Tablet(s) Oral QD 10/30/19 21 021 Inactive lisinopril 20 mg tablet RxNorm: 563448 Take 1 Tablet(s) Oral QD 10/23/19 21 021 Inactive lisinopril 20 mg tablet RxNorm: 924281 Take 1 Tablet(s) Oral QD 10/23/19 21 021 Inactive lisinopril 10 mg tablet RxNorm: 986065 Take 1 Tablet(s) Oral QD 10/02/19 21 021 Inactive icosapent ethyl 1 gram capsule RxNorm: 2475437 Take 2 Capsule(s) (2 gm) Oral BID with meals 09/12/19 022 Inactive Okay to dispense one 2gm tab if you have that available. icosapent ethyl 1 gram capsule RxNorm: 9696787 Take 2 Capsule(s) Oral BID 09/12/19 021 Inactive Okay to dispense one 2gm tab if you have that available. amlodipine 10 mg tablet RxNorm: 398982 Take 1 Tablet(s) Oral QD 09/04/19 022 Inactive aspirin 81 mg tablet,delayed release RxNorm: 688370 Take 1 Tablet(s) Oral QD 09/04/19 21 021 Inactive Levemir FlexTouch U-100 Insulin 100 unit/mL (3 mL) subcutaneous pen RxNorm: 993472 Inject 150 Unit(s) Subcutaneous BID 09/04/19 21 022 Inactive venlafaxine ER 150 mg tablet,extended release 24 hr RxNorm: 547557 Take 1 Tablet(s) Oral QD 09/04/19 021 Inactive clotrimazole-betame thasone 1 %-0.05 % topical cream RxNorm: 771727 Apply to rash on red area on left abdomen/chest Topical BID 08/10/19 21 021 Inactive amlodipine 5 mg tablet RxNorm: 453778 Take 1 Tablet(s) Oral QD 07/31/19 21 021 Inactive cephalexin 500 mg tablet RxNorm: 529632 Take 1 Tablet(s) Oral BID BID - Twice Daily 07/31/19 21 021 Inactive Start 08/01/20 pantoprazole 40 mg tablet,delayed release RxNorm: 573109 Take 1 Tablet(s) Oral QAM every morning 02 022 Inactive senna 8.6 mg tablet RxNorm: 607989 Take 1 Tablet(s) Oral QD 07/08/19 022 Inactive pravastatin 80 mg tablet RxNorm: 327302 Take 1 Tablet(s) Oral QHS every night at bedtime 07/08/19 022 Inactive carbamazepine 200 mg tablet RxNorm: 961120 Take 1 Tablet(s) Oral BID 07/08/19 022 Inactive torsemide 20 mg tablet RxNorm: 292583 Take 1 Tablet(s) Oral QD 07/08/19 023 Inactive clopidogrel 75 mg tablet RxNorm: 127256 Take 1 Tablet(s) Oral QD 07/08/19 Inactive Blood Glucose Test strips RxNorm: Use 1 Test Strip QID at PRN 07/08/19 Inactive E11.42 Novolog Flexpen U-100 Insulin aspart 100 unit/mL (3 mL) subcutaneous RxNorm: 2909960 Administer per sliding scale Milliliter(s) Subcutaneous TID 151-200: 10 u; 201-250: 20 u; 251-300: 30 u; 301-350: 40 u; 351-400: 50 u. 07/08/19 022 Inactive lisinopril 5 mg tablet RxNorm: 764305 Take 1 Tablet(s) Oral QD 07/08/19 Inactive Novolog Flexpen U-100 Insulin aspart 100 unit/mL (3 mL) subcutaneous RxNorm: 2534451 Inject 85 Unit(s) Subcutaneous TID 07/08/19 022 Inactive clotrimazole 1 % topical cream RxNorm: 939420 Apply to bilateral groin areas Topical BID 07/08/19 Inactive metoprolol succinate ER 200 mg tablet,extended release 24 hr RxNorm: 409430 Take 1 Tablet(s) Oral QD 07/08/19 021 Inactive Vitamin D3 25 mcg (1,000 unit) tablet RxNorm: 592866 Take 1 Tablet(s) Oral QD 07/08/19 021 Inactive isosorbide dinitrate 30 mg tablet RxNorm: 705428 Take 1 Tablet(s) Oral QD 07/08/19 21 021 Inactive Levemir FlexTouch U-100 Insulin 100 unit/mL (3 mL) subcutaneous pen RxNorm: 095280 Inject 140 Unit(s) Subcutaneous BID 07/08/19 21 021 Inactive venlafaxine 75 mg tablet RxNorm: 885601 Take 1 Tablet(s) Oral QD 07/08/19 021 Inactive acetaminophen 500 mg tablet RxNorm: 593307 Take 1 Tablet(s) Oral TID as needed for headache 06/18/19 21 Inactive acetaminophen 500 mg tablet RxNorm: 646636 Take 1 Tablet(s) Oral TID as needed for headache 06/18/19 021 Inactive Lyrica 100 mg capsule RxNorm: 678132 Take 1 Capsule(s) Oral QHS every night at bedtime 06/11/19 21 021 Inactive Lyrica 50 mg capsule RxNorm: 157394 Take 1 Capsule(s) Oral QAM every morning 06/10/19 21 021 Inactive hydrocortisone 2.5 % topical cream RxNorm: 754249 Apply to bilateral groin creases Topical BID 05/15/20 20 021 Inactive clotrimazole 1 % topical cream RxNorm: 784949 Apply to bilateral groin areas Topical BID 05/15/20 20 021 Inactive Lyrica 50 mg capsule RxNorm: 790654 Take 1 Capsule(s) Oral QAM every morning 05/14/20 20 020 Inactive Lyrica 100 mg capsule RxNorm: 215378 Take 1 Capsule(s) Oral QHS every night [...] Inactive Nystop 100,000 unit/gram topical powder RxNorm: 337357 Apply to abd folds, under breasts and L side of groin Topical BID x 14 days, then BID PRN 04/08/20 20 021 Inactive dx: yeast dermatitis Lyrica 100 mg capsule RxNorm: 339885 Take 1 Capsule(s) Oral QHS every night at bedtime 03/13/20 20 Inactive Lyrica 50 mg capsule RxNorm: 296963 Take 1 Capsule(s) Oral QAM every morning 03/13/20 Inactive ketoconazole 2 % shampoo RxNorm: 404485 Apply Topical two times a week with showers 03/11/20 20 Inactive cholecalciferol (vitamin D3) 50 mcg (2,000 unit) tablet RxNorm: 852491 Take 1 Tablet(s) Oral QD 03/11/20 20 Inactive Zetia 10 mg tablet RxNorm: 960553 Take 1 Tablet(s) Oral QD 03/07/20 20 021 Inactive Zetia 10 mg tablet RxNorm: 289434 Take 1 Tablet(s) Oral QD 03/07/20 20 Inactive Lyrica 50 mg capsule RxNorm: 846270 Take 1 Capsule(s) Oral QAM every morning 02/15/20 20 Inactive Lyrica 100 mg capsule RxNorm: 820431 Take 1 Capsule(s) Oral QHS every night at bedtime 02/15/20 20 Inactive Lyrica 100 mg capsule RxNorm: 383701 Take 1 Capsule(s) Oral QHS every night at bedtime 02/15/20 20 Inactive Lyrica 50 mg capsule RxNorm: 815663 Take 1 Capsule(s) Oral QAM every morning 02/15/20 20 020 Inactive venlafaxine ER 75 mg capsule,extended release 24 hr RxNorm: 474037 Take 3 Capsule(s) Oral QD 06/12/19 22 Active polyethylene glycol 3350 17 gram/dose oral powder RxNorm: 921127 Take 17=1 capful Gram(s) Oral BID as needed mix with 4-8oz of liquid 06/12/19 Active icosapent ethyl 1 gram capsule RxNorm: 2366604 Take 2 Capsule(s) (2 gm) Oral BID with meals 10/07/19 23 023 Inactive Okay to dispense one 2gm tab if you have that available. metoprolol succinate ER 200 mg tablet,extended release 24 hr RxNorm: 906120 Take 1 Tablet(s) Oral QD 08/12/19 23 Active loperamide 2 mg capsule RxNorm: 911578 Take 1 Capsule(s) Oral QID as needed 06/12/19 22 Active hydralazine 50 mg tablet RxNorm: 185026 Take 1 Tablet(s) Oral QID 08/12/19 23 Active Levemir FlexTouch U-100 Insulin 100 unit/mL (3 mL) subcutaneous pen RxNorm: 282344 Inject 80 Unit(s) Subcutaneous BID 07/14/19 23 023 Inactive Novolog Flexpen U-100 Insulin aspart 100 unit/mL (3 mL) subcutaneous RxNorm: 9743786 Insert 30 Unit(s) Subcutaneous TID with meals [...] CBC with Differential / Platelets CBCDIFF MPV 01500-6 10.4 fL 09/16/19 23 Unknown CBC with Differential / Platelets CBCDIFF Neutrophils 59.90 % 09/16/19 23 Unknown CBC with Differential / Platelets CBCDIFF Neutrophils (Absolute) 3.63 x10E3/uL 09/16/19 23 Unknown CBC with Differential / Platelets CBCDIFF Platelets 777-3 184 x10E3/uL 09/16/19 23 Unknown CBC with Differential / Platelets CBCDIFF RBC 4.69 x10^6/UL 09/16/19 Unknown CBC with Differential / Platelets CBCDIFF RDW 14.6 %binding 09/16/19 Unknown CBC with Differential / Platelets CBCDIFF WBC 6690-2 6.06 x10E3/uL 09/16/19 23 Unknown Basic Metabolic Panel (BMP) BMP Blood Urea Nitrogen (BUN) 42 mg/dL 09/16/19 23 Unknown Basic Metabolic Panel (BMP) BMP BUN/CREATININE RATIO 26.58 ratio 09/16/19 23 Unknown Basic Metabolic Panel (BMP) BMP Calcium (Ca) 92718-0 9.0 mg/dL 09/16/19 Unknown Basic Metabolic Panel (BMP) BMP Carbon Dioxide (ECO2) 29 mmol/L 09/16/19 Unknown Basic Metabolic Panel (BMP) BMP Chloride (Cl) 2075-0 96 mmol/L 09/16/19 Unknown Basic Metabolic Panel (BMP) BMP eGFR 48.85 mL/min/1.7 3m2 09/16/19 Unknown Basic Metabolic Panel (BMP) BMP Creatinine 2160-0 1.58 mg/dL 09/16/19 Unknown Basic Metabolic Panel (BMP) BMP Glucose 368 mg/dL 09/16/19 Unknown Basic Metabolic Panel (BMP) BMP Potassium (K) 2823-3 4.1 mmol/L 09/16/19 Unknown Basic Metabolic Panel (BMP) BMP Sodium (Na) 2951-2 138 mmol/L 09/16/19 Unknown Hemoglobin A1c HEMOGLOBA Hemoglobin A1c 01679-2 11.2 %A1c 09/16/19 Unknown PDFReport PDFReport PDFReport 09/15/19 Unknown Vital Signs Date Vital 09/08/2022 Blood Pressure 1: 144/73 Code: 8480-6 Heart Rate 1: 82 bpm Code: 8867-4 Respiratory Rate: 18 bpm SpO2: 98% Temperature: 36.4 (C) / 97.5 (F) Reason For Visit No Reason For Visit data Encounters Encounter Performer Location Location Address Codes Date ([address]242) Home or Residence Visit Est Pt - Moderate Level, 40 mins Diagnosis: Type 2 diabetes mellitus with diabetic polyneuropathy, with long-term current use of insulin[ICD10: E11.42] Diagnosis: Hyperlipidemia associated with type 2 diabetes mellitus[ICD10: E11.69] Diagnosis: Stage 2 chronic 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[ICD10: E11.22] Diagnosis: Lower extremity edema[ICD10: R60.0] Tapancaty Shirley [facility] [address] [place] [address] CPT-4: 99330 09/08/2022 Plan of Care Planned Activity Notes Codes Status Date Referral: [facility] WPtel: [address] , [address] [id number] [place] Referral Records Received 09/21/2022 Patient Education: Patient M edication Summary Completed 09/08/2022 Patient Education: Influenza Vaccine Completed 09/08/2022 Appointment: Tapan Shirley WPtel: [address] [facility] [address] [id number] [place] F/U 08/11/2022 Appointment: Tapan Shirley WPtel: [address] [facility] [address] [id number] [place] F/U 07/14/2022 Appointment: Tapan Shirley WPtel: [address] [facility] [address] [id number] [place] F/U 02/10/2022 Referral: [facility] WPtel: [address] [facility] [address] [id number] [place] Referral Completed 05/28/2021 Referral: General Cardiology [...] attention.??Sister Jyotsna involved in his care cell# [phone]??Guardian: Don (tapan met in person 09/01/21), now has Lexii (same group as don)Lab Schedule: * 10/06/2022 Diabetes BGs running high again this month. Nursing present and aware patient needs to have endo adjust his BGs as he is followed by them and is on a large amount of insulin. Would like the expert to weigh in here. Nurse agrees to do so and will [...] torsemide to 20mg BID (d.c once daily).?? . 09/08/2022
--- OUTSIDE RECORDS SUMMARY | 2022-11-09 23:40 | XMS_ITS | CCD ---
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 Name Role Phone Tapan Shirley PA-C Primary Care Provider Unavailabl e Tapan Shirley PA-C Chronic Care Management Unavaila ble Summary Purpose DataExchange Insurance Providers Payer name Policy type / Coverage type Covered alliance party ID Effective Begin Date Effective End Date Medicare [place] Medicare Part B [id number] Unknown Unknown Medicaid [place] Medicare Part B [id number] Unknown Unknown Family history Sister Brittany Suggs [...] Snf 09/03/[address]: 7357770 Non-Smoker / No History of Smoking 09/02/[address]: 063531613 No Alcohol Consum ption 09/02/2020 Allergies, Adverse Reactions, Alerts Substance Reaction Codes Entered Date Inactivated Date Status LISINOPRIL RxNorm: 78576 02/12/2020 No Inactive Da te Active Metformin [...] 08/11/2022 Active Coronary artery disease invo lving [place] coronary artery of [place] heart, angina presence unspecified ICD-10: I25.10 [...] 024 Active torsemide 20 mg tablet RxNorm: 296504 Take 1 Tablet(s) Oral BID 09/09/19 23 024 Active d/c once daily dosing carvedilol 25 mg tablet RxNorm: 995806 Take 1 Tablet(s) Oral QD 08/25/19 23 024 Active pregabalin 150 mg capsule RxNorm: 678749 1 Capsule(s) Oral HS at bed time 08/18/19 23 023 Active pregabalin 100 mg capsule RxNorm: 141419 1 Capsule(s) Oral QAM every morning 08/18/19 23 023 Active lisinopril 20 mg tablet RxNorm: 649519 Give 1 Tablet(s) Oral QD 07/28/19 23 023 Inactive carvedilol 25 mg tablet RxNorm: 593022 1 Tablet(s) Oral QD 07/28/19 23 023 Inactive Lyrica 150 mg capsule RxNorm: 803328 Take 1 Capsule(s) Oral QHS every night at bedtime 07/19/19 023 Inactive d/c 100mg dose Diflucan 150 mg tablet RxNorm: 778475 Take 1 Tablet(s) Oral QD repeat on day 3 and 6 07/19/19 23 023 Inactive pregabalin 100 mg capsule RxNorm: 865475 Take 1 Capsule(s) Oral QAM every morning 07/19/19 023 Inactive Humulin R Regular U-100 Insulin 100 unit/mL injection solution RxNorm: 957979 85 Unit(s) Injection TID 07/13/19 023 Inactive gatifloxacin 0.5 % eye drops RxNorm: 897771 Instill 1 Drop(s) as directed TID Instill 1 drop in to affected eye(s) starting 1 day prior to surgery and continue until gone (do not exceed 4 weeks). 07/13/19 23 023 Inactive carvedilol 25 mg tablet RxNorm: 427682 2 Tablet(s) Oral BID 07/13/19 023 Inactive ketorolac 0.5 % eye drops RxNorm: 994593 Instill 1 Drop(s) as directed QID Instill 1 drop into affected eye(s) 4 times daily starting 1 day prior to surgery and continue until gone (do not exceed 4 weeks). 07/13/19 023 Inactive Diflucan 150 mg tablet RxNorm: 309109 Take 1 Tablet(s) Oral QD repeat on day 3 and 6 06/30/19 23 023 Inactive Accu-Chek Guide test strips RxNorm: Use 1 Test Strip QID Use 1 test strip to monitor blood glucose 4 times daily and as needed. Dx:E11.42. 02/07/ 023 Inactive ok to substitute with any covered alternative test strip dextromethorphan-gu aifenesin 10 mg-100 mg/5 mL oral liquid RxNorm: 810038 Take 10 Milliliter(s) Oral every 4 hours as needed for cough 06/19/19 23 023 Inactive dextromethorphan-gu aifenesin 10 mg-100 mg/5 mL oral liquid RxNorm: 736363 Take 10 Milliliter(s) Oral every 4 hours as needed for cough 06/19/19 023 Inactive Lyrica 150 mg capsule RxNorm: 709520 Take 1 Capsule(s) Oral QHS every night at bedtime 06/18/19 023 Inactive d/c 100mg dose aripiprazole 15 mg tablet RxNorm: 502600 /2 TAB (7.5MG) ORALLY DAILY (DX:MAJOR DEPRESSIVE DISORDER) 06/05/19 023 Inactive pregabalin 100 mg capsule RxNorm: 993924 1 Capsule(s) Oral QAM every morning 06/02/19 23 023 Inactive Banophen 50 mg capsule RxNorm: 4588926 Take 1 Capsule(s) Oral Q6H every 6 hours as needed 05/19/19 23 No Stop Date Active Novolog Flexpen U-100 Insulin aspart 100 unit/mL (3 mL) subcutaneous RxNorm: 9501449 Inject 10 Unit(s) Subcutaneous QHS every night at bedtime with nighttime snack 04/08/20 022 Inactive Novolog Flexpen U-100 Insulin aspart 100 unit/mL (3 mL) subcutaneous RxNorm: 0702809 Inject 42 Unit(s) Subcutaneous TID in addition to sliding scale 04/08/20 22 022 Inactive d/c 36u albuterol sulfate HFA 90 mcg/actuation aerosol inhaler RxNorm: 2510457 Take 2 Puff(s) Inhalation Q4H every four hours as needed as needed for SOB, cough, or wheezing 04/07/20 22 030 Active Banophen 50 mg capsule RxNorm: 9394824 Take 1 Capsule(s) Oral Q6H every 6 hours as needed 04/06/20 22 023 Inactive diphenhydramine 50 mg tablet RxNorm: 1613854 Take 1 Tablet(s) Oral Q6H every 6 hours as needed 04/06/20 22 022 Inactive diphenhydramine 50 mg tablet RxNorm: 9662473 1 Tablet(s) Oral Q6H every 6 hours as needed 04/06/20 22 022 Inactive Abilify 15 mg tablet RxNorm: 988875 1/2 Tablet(s) Oral QD 03/10/20 22 023 Inactive Shingrix (PF) 50 mcg/0.5 mL intramuscular suspension, kit RxNorm: 9944003 Administer 1/2 Milliliter(s) Intramuscular QD one time shingrix step 2 ( step 1 given 11/04/21) WITH needle - Nursing please administer upon arrival and once administered post a bridge message with date of administration, outside salesman, expiration date, and lot# so we can update [facility] 02/18/20 22 022 Inactive dispense with needle Shingrix (PF) 50 mcg/0.5 mL intramuscular suspension, kit RxNorm: 2585105 Administer 1/2 Milliliter(s) Intramuscular QD one time shingrix step 2 ( step 1 given 11/04/21) WITH needle - Nursing please administer upon arrival and once administered post a bridge message with date of administration, outside salesman, expiration date, and lot# so we can update [facility] 02/18/20 22 022 Inactive dispense with needle acetaminophen 500 mg tablet RxNorm: 300930 Take 1 Tablet(s) Oral TID 01/08/20 22 023 Active d/c PRN order polyethylene glycol 3350 17 gram/dose oral powder RxNorm: 753943 Take 17=1 capful Gram(s) Oral QD mix with 4-8oz of liquid 01/08/20 22 023 Active take this in addition to BID prn order Lyrica 100 mg capsule RxNorm: 779957 Take 1 Capsule(s) Oral QAM every morning 01/08/20 22 022 Inactive d/c 50mg dose Lyrica 150 mg capsule RxNorm: 716709 Take 1 Capsule(s) Oral QHS every night at bedtime 01/08/20 22 023 Inactive d/c 100mg dose Abilify 5 mg tablet RxNorm: 733520 Take 1 Tablet(s) Oral QD take 1 tab po QD #30 refill 5 dx: MDD 12/12/19 22 022 Inactive Abilify 5 mg tablet RxNorm: 728868 Take 1 Tablet(s) Oral QD take 1 tab po QD #30 refill 5 dx: MDD 12/12/19 22 022 Inactive chlorthalidone 25 mg tablet RxNorm: 952130 Take 1 Tablet(s) Oral QAM every morning 12/10/19 22 023 Active Novolog Flexpen U-100 Insulin aspart 100 unit/mL (3 mL) subcutaneous RxNorm: 4416866 Inject 42 Unit(s) Subcutaneous TID in addition to sliding scale 12/10/19 22 022 Inactive d/c 36u pregabalin 50 mg capsule RxNorm: 027454 Take 1 Capsule(s) Oral QAM every morning 11/12/19 22 022 Inactive tetanus-diphtheria toxoids-Td 2 Lf unit-2 Lf unit/0.5 mL IM suspension RxNorm: 139 Take 0.5 Miscellaneous Intramuscular 11/12/19 22 022 Inactive need tdap - nursing to administer upon arrival pregabalin 50 mg capsule RxNorm: 424465 Take 1 Capsule(s) Oral QAM every morning 10/16/19 22 022 Inactive pregabalin 50 mg capsule RxNorm: 709336 Take 1 Capsule(s) Oral QAM every morning 10/16/19 22 022 Inactive pregabalin 50 mg capsule RxNorm: 862814 1 Capsule(s) Oral QAM every morning 10/15/19 22 022 Inactive Shingrix (PF) 50 mcg/0.5 mL intramuscular suspension, kit RxNorm: 7862110 Administer 1/2 Milliliter(s) Intramuscular one time Nursing please administer upon arrival and once administered post a bridge message with date of administration, outside salesman, 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 10/09/19 22 022 Inactive shingrix step 1 Shingrix (PF) 50 mcg/0.5 mL intramuscular suspension, kit RxNorm: 9795491 Administer 1/2 Milliliter(s) Intramuscular one time Nursing please administer upon arrival and once administered post a bridge message with date of administration, outside salesman, 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 10/09/19 22 Inactive shingrix step 1 cholecalciferol (vitamin D3) 1,250 mcg (50,000 unit) capsule RxNorm: 302388 Take 1 Capsule(s) Oral QW once a [...] aspart 100 unit/mL (3 mL) subcutaneous RxNorm: 8368486 Inject 10 Unit(s) Subcutaneous QHS every night at bedtime with nighttime snack 10/08/19 22 Inactive Shingrix (PF) 50 mcg/0.5 mL intramuscular suspension, kit RxNorm: 5724832 ADMINISTER 2-DOSE SERIES PER CDC GUIDELINES 10/08/19 22 Active Shingrix (PF) 50 mcg/0.5 mL intramuscular suspension, kit RxNorm: 5552836 ADMINISTER 2-DOSE SERIES PER CDC GUIDELINES 10/08/19 22 Inactive Novolog Flexpen U-100 Insulin aspart 100 unit/mL (3 mL) subcutaneous RxNorm: 0079596 Inject 36 Unit(s) Subcutaneous TID in addition to sliding scale 10/08/19 22 Inactive Novofine Autocover 30 gauge x 1/3 needle RxNorm: Use 1 Miscellaneous UD as directed Use 1 needle as directed to administer insulin 5 times a day Dx:E11.42. 05/19 022 Inactive ok to substitute with any covered alternative pen needle benzoyl peroxide 10 % topical cleanser RxNorm: 533697 Apply 1 Application Topical QD apply to face, wash rinse and dry once daily (may change to QOD if drying) 08/19/19 22 022 Inactive (%covered by insurance) #60ml refill 11 dx: acne benzoyl peroxide 10 % topical cleanser RxNorm: 240474 Apply 1 Application Topical QD apply to face, wash rinse and dry once daily (may change to QOD if drying) 08/19/19 22 022 Inactive (%covered by insurance) #60ml refill 11 dx: acne benzoyl peroxide 10 % topical cleanser RxNorm: 255814 Apply 1 Application Topical QD apply to face, wash rinse and dry once daily (may change to QOD if drying) 08/19/19 022 Inactive (%covered by insurance) #60ml refill 11 dx: acne Lyrica 50 mg capsule RxNorm: 582118 Take 1 Capsule(s) Oral QAM every morning Take 1 capsule by mouth once daily 08/19/19 022 Inactive benzoyl peroxide 10 % topical cleanser RxNorm: 855440 Apply 1 Application Topical QD apply to face, wash rinse and dry once daily (may change to QOD if drying) 08/19/19 022 Inactive (%covered by insurance) #60ml refill 11 dx: acne Lyrica 100 mg capsule RxNorm: 233207 Take 1 Capsule(s) Oral QHS every night at bedtime Take 1 capsule by mouth once daily at bedtime 08/19/19 22 022 Inactive Lyrica 100 mg capsule RxNorm: 073984 Take 1 Capsule(s) Oral QHS every night at bedtime Take 1 capsule by mouth once daily at bedtime 08/16/19 Inactive Lyrica 50 mg capsule RxNorm: 224484 Take 1 Capsule(s) Oral QAM every morning Take 1 capsule by mouth once daily 08/16/19 22 Inactive Levemir FlexTouch U-100 Insulin 100 unit/mL (3 mL) subcutaneous pen RxNorm: 771166 Inject 86 Unit(s) Subcutaneous BID 08/05/19 22 022 Inactive d/c 83units BID Lyrica 100 mg capsule RxNorm: 896334 Take 1 Capsule(s) Oral QHS every night at bedtime Take 1 capsule by mouth once daily at bedtime 07/14/19 22 022 Inactive Lyrica 50 mg capsule RxNorm: 052875 Take 1 Capsule(s) Oral QAM every morning Take 1 capsule by mouth once daily 07/14/19 22 022 Inactive Levemir FlexTouch U-100 Insulin 100 unit/mL (3 mL) subcutaneous pen RxNorm: 072450 Inject 83 Unit(s) Subcutaneous BID 07/08/19 22 [...] 30 mg tablet,extended release 24 hr RxNorm: 173835 Take 1 Tablet(s) Oral QD 05/05/20 No Stop Date Active hydralazine 50 mg tablet RxNorm: 390227 Take 1 Tablet(s) Oral QID 05/05/20 Inactive venlafaxine ER 225 mg tablet,extended release 24 hr RxNorm: 902893 Take 1 Tablet(s) Oral QD 05/05/20 Inactive venlafaxine ER 225 mg tablet,extended release 24 hr RxNorm: 353504 Take 1 Tablet(s) Oral QD 05/05/20 022 Inactive hydralazine 50 mg tablet RxNorm: 239292 Take 1 Tablet(s) Oral QID 05/05/20 Inactive aspirin 81 mg tablet,delayed release RxNorm: 513411 Take 1 Tablet(s) Oral QD 03/31/20 022 Inactive Zetia 10 mg tablet RxNorm: 932063 Take 1 Tablet(s) Oral QD 03/31/20 Inactive Vitamin D2 1,250 mcg (50,000 unit) capsule RxNorm: 7237762 Take 1 Capsule(s) Oral QW once a week x 12 weeks 03/31/20 Inactive Vitamin D2 1,250 mcg (50,000 unit) capsule RxNorm: 1051074 Take 1 Capsule(s) Oral QW once a week 03/31/20 Inactive Zetia 10 mg tablet RxNorm: 541782 Take 1 Tablet(s) Oral QD 03/31/20 Inactive hydralazine 25 mg tablet RxNorm: 059398 Take 1 Tablet(s) Oral QID 03/31/20 21 021 Inactive hydralazine 25 mg tablet RxNorm: 065364 Take 1 Tablet(s) Oral QID 03/31/20 Inactive hydralazine 10 mg tablet RxNorm: 172746 Take 1 Tablet(s) Oral QID 03/03/20 021 Inactive cephalexin 500 mg tablet RxNorm: 639730 Take 1 Tablet(s) Oral QID 02/27/20 021 Inactive cephalexin 500 mg tablet RxNorm: 230262 Take 1 Tablet(s) Oral QID 02/27/20 021 Inactive lisinopril 40 mg tablet RxNorm: 608659 Take 1 Tablet(s) Oral QD 02/11/20 023 Inactive Eliquis 5 mg tablet RxNorm: 4477667 Take 1 Tablet(s) Oral BID 01/05/20 21 022 Inactive Eliquis 5 mg tablet RxNorm: 5752995 Take 2 Tablet(s) Oral QD 01/01/20 021 Inactive Lyrica 50 mg capsule RxNorm: 635966 Take 1 Capsule(s) Oral QAM every morning 12/24/19 021 Inactive Lyrica 100 mg capsule RxNorm: 576110 Take 1 Capsule(s) Oral QHS every night at bedtime 12/24/19 021 Inactive clotrimazole 1 % topical cream RxNorm: 817353 Apply to right foot and toes Topical BID 12/04/19 21 023 Inactive metoprolol succinate ER 200 mg tablet,extended release 24 hr RxNorm: 368664 Take 1 Tablet(s) Oral QD 12/04/19 023 Inactive ciprofloxacin 500 mg tablet RxNorm: 835655 Take 1 Tablet(s) Oral QD 11/30/19 021 Inactive DX ofloxacin otic drops Accu-Chek Guide test strips RxNorm: USE 1 TO CHECK GLUCOSE 4 TIMES DAILY AND NEEDED 11/15/19 21 023 Inactive Blood Glucose Test strips RxNorm: Use 1 Test Strip QID at PRN 11/05/19 21 023 Inactive E11.42 lisinopril 30 mg tablet RxNorm: 287150 Take 1 Tablet(s) Oral QD 10/30/19 021 Inactive lisinopril 20 mg tablet RxNorm: 018197 Take 1 Tablet(s) Oral QD 10/23/19 21 021 Inactive lisinopril 20 mg tablet RxNorm: 365649 Take 1 Tablet(s) Oral QD 10/23/19 21 021 Inactive lisinopril 10 mg tablet RxNorm: 288262 Take 1 Tablet(s) Oral QD 10/02/19 21 021 Inactive icosapent ethyl 1 gram capsule RxNorm: 9823236 Take 2 Capsule(s) (2 gm) Oral BID with meals 09/12/19 022 Inactive Okay to dispense one 2gm tab if you have that available. icosapent ethyl 1 gram capsule RxNorm: 8358262 Take 2 Capsule(s) Oral BID 09/12/19 021 Inactive Okay to dispense one 2gm tab if you have that available. amlodipine 10 mg tablet RxNorm: 254168 Take 1 Tablet(s) Oral QD 09/04/19 022 Inactive aspirin 81 mg tablet,delayed release RxNorm: 710139 Take 1 Tablet(s) Oral QD 09/04/19 21 021 Inactive Levemir FlexTouch U-100 Insulin 100 unit/mL (3 mL) subcutaneous pen RxNorm: 186578 Inject 150 Unit(s) Subcutaneous BID 09/04/19 21 022 Inactive venlafaxine ER 150 mg tablet,extended release 24 hr RxNorm: 077939 Take 1 Tablet(s) Oral QD 09/04/19 21 021 Inactive clotrimazole-betame thasone 1 %-0.05 % topical cream RxNorm: 021162 Apply to rash on red area on left abdomen/chest Topical BID 08/10/19 21 021 Inactive amlodipine 5 mg tablet RxNorm: 117663 Take 1 Tablet(s) Oral QD 07/31/19 21 021 Inactive cephalexin 500 mg tablet RxNorm: 368817 Take 1 Tablet(s) Oral BID BID - Twice Daily 07/31/19 21 021 Inactive Start 08/01/20 pantoprazole 40 mg tablet,delayed release RxNorm: 805707 Take 1 Tablet(s) Oral QAM every morning 07/08/19 022 Inactive senna 8.6 mg tablet RxNorm: 031507 Take 1 Tablet(s) Oral QD 07/08/19 022 Inactive pravastatin 80 mg tablet RxNorm: 938421 Take 1 Tablet(s) Oral QHS every night at bedtime 07/08/19 Inactive carbamazepine 200 mg tablet RxNorm: 023585 Take 1 Tablet(s) Oral BID 07/08/19 022 Inactive torsemide 20 mg tablet RxNorm: 679259 Take 1 Tablet(s) Oral QD 07/08/19 023 Inactive clopidogrel 75 mg tablet RxNorm: 138802 Take 1 Tablet(s) Oral QD 07/08/19 021 Inactive Blood Glucose Test strips RxNorm: Use 1 Test Strip QID at PRN 07/08/19 Inactive E11.42 Novolog Flexpen U-100 Insulin aspart 100 unit/mL (3 mL) subcutaneous RxNorm: 2532251 Administer per sliding scale Milliliter(s) Subcutaneous TID 151-200: 10 u; 201-250: 20 u; 251-300: 30 u; 301-350: 40 u; 351-400: 50 u. 07/08/19 022 Inactive lisinopril 5 mg tablet RxNorm: 354840 Take 1 Tablet(s) Oral QD 07/08/19 Inactive Novolog Flexpen U-100 Insulin aspart 100 unit/mL (3 mL) subcutaneous RxNorm: 9613843 Inject 85 Unit(s) Subcutaneous TID 07/08/19 022 Inactive clotrimazole 1 % topical cream RxNorm: 125741 Apply to bilateral groin areas Topical BID 07/08/19 022 Inactive metoprolol succinate ER 200 mg tablet,extended release 24 hr RxNorm: 630454 Take 1 Tablet(s) Oral QD 07/08/19 021 Inactive Vitamin D3 25 mcg (1,000 unit) tablet RxNorm: 153299 Take 1 Tablet(s) Oral QD 07/08/19 21 Inactive isosorbide dinitrate 30 mg tablet RxNorm: 068120 Take 1 Tablet(s) Oral QD 07/08/19 Inactive Levemir FlexTouch U-100 Insulin 100 unit/mL (3 mL) subcutaneous pen RxNorm: 738950 Inject 140 Unit(s) Subcutaneous BID 07/08/19 Inactive venlafaxine 75 mg tablet RxNorm: 853178 Take 1 Tablet(s) Oral QD 07/08/19 Inactive acetaminophen 500 mg tablet RxNorm: 763218 Take 1 Tablet(s) Oral TID as needed for headache 06/18/19 Inactive acetaminophen 500 mg tablet RxNorm: 452035 Take 1 Tablet(s) Oral TID as needed for headache 06/18/19 Inactive Lyrica 100 mg capsule RxNorm: 533665 Take 1 Capsule(s) Oral QHS every night at bedtime 06/11/19 021 Inactive Lyrica 50 mg capsule RxNorm: 721493 Take 1 Capsule(s) Oral QAM every morning 06/10/19 21 021 Inactive hydrocortisone 2.5 % topical cream RxNorm: 910199 Apply to bilateral groin creases Topical BID 05/15/20 20 021 Inactive clotrimazole 1 % topical cream RxNorm: 822313 Apply to bilateral groin areas Topical BID 05/15/20 20 021 Inactive Lyrica 50 mg capsule RxNorm: 612574 Take 1 Capsule(s) Oral QAM every morning 05/14/20 20 020 Inactive Lyrica 100 mg capsule RxNorm: 680694 Take 1 Capsule(s) Oral QHS every night [...] Inactive Nystop 100,000 unit/gram topical powder RxNorm: 391682 Apply to abd folds, under breasts and L side of groin Topical BID x 14 days, then BID PRN 04/08/20 20 Inactive dx: yeast dermatitis Lyrica 100 mg capsule RxNorm: 431251 Take 1 Capsule(s) Oral QHS every night at bedtime 03/13/20 20 Inactive Lyrica 50 mg capsule RxNorm: 082376 Take 1 Capsule(s) Oral QAM every morning 03/13/20 20 Inactive ketoconazole 2 % shampoo RxNorm: 975596 Apply Topical two times a week with showers 03/11/20 20 Inactive cholecalciferol (vitamin D3) 50 mcg (2,000 unit) tablet RxNorm: 022285 Take 1 Tablet(s) Oral QD 03/11/20 20 021 Inactive Zetia 10 mg tablet RxNorm: 380365 Take 1 Tablet(s) Oral QD 03/07/20 20 021 Inactive Zetia 10 mg tablet RxNorm: 916650 Take 1 Tablet(s) Oral QD 03/07/20 20 Inactive Lyrica 50 mg capsule RxNorm: 383257 Take 1 Capsule(s) Oral QAM every morning 02/15/20 20 Inactive Lyrica 100 mg capsule RxNorm: 617015 Take 1 Capsule(s) Oral QHS every night at bedtime 02/15/20 20 Inactive Lyrica 100 mg capsule RxNorm: 210652 Take 1 Capsule(s) Oral QHS every night at bedtime 02/15/20 20 020 Inactive Lyrica 50 mg capsule RxNorm: 475329 Take 1 Capsule(s) Oral QAM every morning 02/15/20 20 020 Inactive venlafaxine ER 75 mg capsule,extended release 24 hr RxNorm: 229113 Take 3 Capsule(s) Oral QD 06/12/19 22 Active polyethylene glycol 3350 17 gram/dose oral powder RxNorm: 972106 Take 17=1 capful Gram(s) Oral BID as needed mix with 4-8oz of liquid 06/12/19 Active icosapent ethyl 1 gram capsule RxNorm: 6164809 Take 2 Capsule(s) (2 gm) Oral BID with meals 10/07/19 23 023 Inactive Okay to dispense one 2gm tab if you have that available. metoprolol succinate ER 200 mg tablet,extended release 24 hr RxNorm: 179367 Take 1 Tablet(s) Oral QD 08/12/19 23 Active loperamide 2 mg capsule RxNorm: 299468 Take 1 Capsule(s) Oral QID as needed 06/12/19 22 Active hydralazine 50 mg tablet RxNorm: 250342 Take 1 Tablet(s) Oral QID 08/12/19 23 Active Levemir FlexTouch U-100 Insulin 100 unit/mL (3 mL) subcutaneous pen RxNorm: 387468 Inject 80 Unit(s) Subcutaneous BID 07/14/19 23 023 Inactive Novolog Flexpen U-100 Insulin aspart 100 unit/mL (3 mL) subcutaneous RxNorm: 1242723 Insert 30 Unit(s) Subcutaneous TID with meals [...] [facility] WPtel: [phone] [id number] [place] Referral Records Received 09/21/2022 Referral: [facility]: [address] [id number] [place] Referral Completed 05/28/2021 Referral: General Cardiology Referral Complet ed 01/03/2021 Referral: General Psychologist Referral Close d Instructions Comment Date Leonid is a?? Male being seen living at [facility]. Initial BPS visit 01/2020. PMHx including DMII, CAD w/ 5 stents, Depression, Seizure Disorder and CKD stage 3. He moved into [facility] in 12/2019 but after a hospitalization 05/2021 he moved to the [facility] to have closer nursing attention.??Sister Jyotsna involved in his care cell# [phone]??Guardian: Don (tapan met in person 09/01/21), now has Lexii (same group as don)Lab Schedule: * 10/06/2022
--- OUTSIDE RECORDS SUMMARY | 2022-11-09 23:40 | XMS_ITS | CCD ---
Author Name Sandra Clark CNP Address [address] [place] [address] [address] 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 Name Role Phone Tapan Shirley PA-C Primary Care Provider Unavailabl e Tapan Shirley PA-C Chronic Care Management Unavaila ble Summary Purpose DataExchange Insurance Providers Payer name Policy type / Coverage type Covered green party ID Effective Begin Date Effective End Date Medicare [place] Medicare Part B [id number] Unknown Unknown Medicaid [place] Medicare Part B [id number] Unknown Unknown Family history Sister Brittany Suggs [...] Halfway 09/03/[address]: 3684776 Non-Smoker / No History of Smoking 09/02/[address]: 993497281 No Alcohol Consum ption 09/02/2020 Allergies, Adverse Reactions, Alerts Substance Reaction Codes Entered Date Inactivated Date Status LISINOPRIL RxNorm: 46380 02/12/2020 No Inactive Da te Active Metformin [...] 08/11/2022 Active Coronary artery disease invo lving big [place] coronary artery of [place] heart, angina presence unspecified ICD-10: I25.10 ICD-9: [...] immunization ICD-10: Z23 ICD-9: V03.89 02/10/2022 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 ICD-10: Z79.4 02/10 [...] 024 Active torsemide 20 mg tablet RxNorm: 430764 Take 1 Tablet(s) Oral BID 09/09/19 23 024 Active d/c once daily dosing carvedilol 25 mg tablet RxNorm: 592737 Take 1 Tablet(s) Oral QD 08/25/19 23 024 Active pregabalin 150 mg capsule RxNorm: 314910 1 Capsule(s) Oral HS at bed time 08/18/19 23 023 Active pregabalin 100 mg capsule RxNorm: 242374 1 Capsule(s) Oral QAM every morning 08/18/19 23 023 Active lisinopril 20 mg tablet RxNorm: 728307 Give 1 Tablet(s) Oral QD 07/28/19 23 023 Inactive carvedilol 25 mg tablet RxNorm: 598042 1 Tablet(s) Oral QD 07/28/19 23 023 Inactive Lyrica 150 mg capsule RxNorm: 988025 Take 1 Capsule(s) Oral QHS every night at bedtime 07/19/19 023 Inactive d/c 100mg dose Diflucan 150 mg tablet RxNorm: 987219 Take 1 Tablet(s) Oral QD repeat on day 3 and 6 07/19/19 23 023 Inactive pregabalin 100 mg capsule RxNorm: 819636 Take 1 Capsule(s) Oral QAM every morning 07/19/19 023 Inactive Humulin R Regular U-100 Insulin 100 unit/mL injection solution RxNorm: 919741 85 Unit(s) Injection TID 07/13/19 023 Inactive gatifloxacin 0.5 % eye drops RxNorm: 950724 Instill 1 Drop(s) as directed TID Instill 1 drop in to affected eye(s) starting 1 day prior to surgery and continue until gone (do not exceed 4 weeks). 07/13/19 23 023 Inactive carvedilol 25 mg tablet RxNorm: 971475 2 Tablet(s) Oral BID 07/13/19 23 023 Inactive ketorolac 0.5 % eye drops RxNorm: 048512 Instill 1 Drop(s) as directed QID Instill 1 drop into affected eye(s) 4 times daily starting 1 day prior to surgery and continue until gone (do not exceed 4 weeks). 07/13/19 23 023 Inactive Diflucan 150 mg tablet RxNorm: 791270 Take 1 Tablet(s) Oral QD repeat on day 3 and 6 06/30/19 23 023 Inactive Accu-Chek Guide test strips RxNorm: Use 1 Test Strip QID Use 1 test strip to monitor blood glucose 4 times daily and as needed. Dx:E11.42. 06/23/19 23 023 Inactive ok to substitute with any covered alternative test strip dextromethorphan-gu aifenesin 10 mg-100 mg/5 mL oral liquid RxNorm: 736445 Take 10 Milliliter(s) Oral every 4 hours as needed for cough 06/19/19 023 Inactive dextromethorphan-gu aifenesin 10 mg-100 mg/5 mL oral liquid RxNorm: 175887 Take 10 Milliliter(s) Oral every 4 hours as needed for cough 06/19/19 023 Inactive Lyrica 150 mg capsule RxNorm: 589887 Take 1 Capsule(s) Oral QHS every night at bedtime 06/18/19 023 Inactive d/c 100mg dose aripiprazole 15 mg tablet RxNorm: 398486 1/2 TAB (7.5MG) ORALLY DAILY (DX:MAJOR DEPRESSIVE DISORDER) 06/05/19 023 Inactive pregabalin 100 mg capsule RxNorm: 779972 1 Capsule(s) Oral QAM every morning 06/02/19 023 Inactive Banophen 50 mg capsule RxNorm: 0003683 Take 1 Capsule(s) Oral Q6H every 6 hours as needed 05/19/19 23 No Stop Date Active Novolog Flexpen U-100 Insulin aspart 100 unit/mL (3 mL) subcutaneous RxNorm: 3940225 Inject 10 Unit(s) Subcutaneous QHS every night at bedtime with nighttime snack 04/08/20 022 Inactive Novolog Flexpen U-100 Insulin aspart 100 unit/mL (3 mL) subcutaneous RxNorm: 9564543 Inject 42 Unit(s) Subcutaneous TID in addition to sliding scale 04/08/20 022 Inactive d/c 36u albuterol sulfate HFA 90 mcg/actuation aerosol inhaler RxNorm: 2380102 Take 2 Puff(s) Inhalation Q4H every four hours as needed as needed for SOB, cough, or wheezing 04/07/20 22 030 Active Banophen 50 mg capsule RxNorm: 6246370 Take 1 Capsule(s) Oral Q6H every 6 hours as needed 04/06/20 023 Inactive diphenhydramine 50 mg tablet RxNorm: 4606311 Take 1 Tablet(s) Oral Q6H every 6 hours as needed 04/06/20 22 022 Inactive diphenhydramine 50 mg tablet RxNorm: 6602883 1 Tablet(s) Oral Q6H every 6 hours as needed 04/06/20 22 022 Inactive Abilify 15 mg tablet RxNorm: 155934 1/2 Tablet(s) Oral QD 03/10/20 023 Inactive Shingrix (PF) 50 mcg/0.5 mL intramuscular suspension, kit RxNorm: 5450654 Administer 1/2 Milliliter(s) Intramuscular QD one time shingrix step 2 ( step 1 given 11/04/21) WITH needle - Nursing please administer upon arrival and once administered post a bridge message with date of administration, cable stretcher and tester, expiration date, and lot# so we can update [facility] 02/18/20 22 022 Inactive dispense with needle Shingrix (PF) 50 mcg/0.5 mL intramuscular suspension, kit RxNorm: 0092494 Administer 1/2 Milliliter(s) Intramuscular QD one time shingrix step 2 ( step 1 given 11/04/21) WITH needle - Nursing please administer upon arrival and once administered post a bridge message with date of administration, cable stretcher and tester, expiration date, and lot# so we can update [facility] 02/18/20 22 022 Inactive dispense with needle acetaminophen 500 mg tablet RxNorm: 058225 Take 1 Tablet(s) Oral TID 01/08/20 22 023 Active d/c PRN order polyethylene glycol 3350 17 gram/dose oral powder RxNorm: 169750 Take 17=1 capful Gram(s) Oral QD mix with 4-8oz of liquid 01/08/20 22 023 Active take this in addition to BID prn order Lyrica 100 mg capsule RxNorm: 734843 Take 1 Capsule(s) Oral QAM every morning 01/08/20 22 022 Inactive d/c 50mg dose Lyrica 150 mg capsule RxNorm: 918392 Take 1 Capsule(s) Oral QHS every night at bedtime 01/08/20 22 023 Inactive d/c 100mg dose Abilify 5 mg tablet RxNorm: 042936 Take 1 Tablet(s) Oral QD take 1 tab po QD #30 refill 5 dx: MDD 12/12/19 22 022 Inactive Abilify 5 mg tablet RxNorm: 209421 Take 1 Tablet(s) Oral QD take 1 tab po QD #30 refill 5 dx: MDD 12/12/19 22 022 Inactive chlorthalidone 25 mg tablet RxNorm: 700848 Take 1 Tablet(s) Oral QAM every morning 12/10/19 22 023 Active Novolog Flexpen U-100 Insulin aspart 100 unit/mL (3 mL) subcutaneous RxNorm: 2844057 Inject 42 Unit(s) Subcutaneous TID in addition to sliding scale 12/10/19 22 022 Inactive d/c 36u pregabalin 50 mg capsule RxNorm: 876502 Take 1 Capsule(s) Oral QAM every morning 11/12/19 22 022 Inactive tetanus-diphtheria toxoids-Td 2 Lf unit-2 Lf unit/0.5 mL IM suspension RxNorm: 139 Take 0.5 Miscellaneous Intramuscular 11/12/19 22 022 Inactive need tdap - nursing to administer upon arrival pregabalin 50 mg capsule RxNorm: 163709 Take 1 Capsule(s) Oral QAM every morning 10/16/19 22 022 Inactive pregabalin 50 mg capsule RxNorm: 444538 Take 1 Capsule(s) Oral QAM every morning 10/16/19 22 022 Inactive pregabalin 50 mg capsule RxNorm: 822754 1 Capsule(s) Oral QAM every morning 10/15/19 22 022 Inactive Shingrix (PF) 50 mcg/0.5 mL intramuscular suspension, kit RxNorm: 3568214 Administer 1/2 Milliliter(s) Intramuscular one time Nursing please administer upon arrival and once administered post a bridge message with date of administration, cable stretcher and tester, 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 10/09/19 22 022 Inactive shingrix step 1 Shingrix (PF) 50 mcg/0.5 mL intramuscular suspension, kit RxNorm: 4861211 Administer 1/2 Milliliter(s) Intramuscular one time Nursing please administer upon arrival and once administered post a bridge message with date of administration, cable stretcher and tester, 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 10/09/19 22 022 Inactive shingrix step 1 cholecalciferol (vitamin D3) 1,250 mcg (50,000 unit) capsule RxNorm: 907091 Take 1 Capsule(s) Oral QW once a [...] aspart 100 unit/mL (3 mL) subcutaneous RxNorm: 0405064 Inject 10 Unit(s) Subcutaneous QHS every night at bedtime with nighttime snack 10/08/19 22 Inactive Shingrix (PF) 50 mcg/0.5 mL intramuscular suspension, kit RxNorm: 3012326 ADMINISTER 2-DOSE SERIES PER CDC GUIDELINES 10/08/19 22 022 Active Shingrix (PF) 50 mcg/0.5 mL intramuscular suspension, kit RxNorm: 1243012 ADMINISTER 2-DOSE SERIES PER CDC GUIDELINES 10/08/19 22 022 Inactive Novolog Flexpen U-100 Insulin aspart 100 unit/mL (3 mL) subcutaneous RxNorm: 2895340 Inject 36 Unit(s) Subcutaneous TID in addition to sliding scale 10/08/19 22 Inactive Novofine Autocover 30 gauge x 1/3 needle RxNorm: Use 1 Miscellaneous UD as directed Use 1 needle as directed to administer insulin 5 times a day Dx:E11.42. 10/03/19 22 Inactive ok to substitute with any covered alternative pen needle benzoyl peroxide 10 % topical cleanser RxNorm: 612414 Apply 1 Application Topical QD apply to face, wash rinse and dry once daily (may change to QOD if drying) 08/19/19 22 022 Inactive (%covered by insurance) #60ml refill 11 dx: acne benzoyl peroxide 10 % topical cleanser RxNorm: 075053 Apply 1 Application Topical QD apply to face, wash rinse and dry once daily (may change to QOD if drying) 08/19/19 22 022 Inactive (%covered by insurance) #60ml refill 11 dx: acne benzoyl peroxide 10 % topical cleanser RxNorm: 803982 Apply 1 Application Topical QD apply to face, wash rinse and dry once daily (may change to QOD if drying) 08/19/19 22 022 Inactive (%covered by insurance) #60ml refill 11 dx: acne Lyrica 50 mg capsule RxNorm: 896703 Take 1 Capsule(s) Oral QAM every morning Take 1 capsule by mouth once daily 08/19/19 22 022 Inactive benzoyl peroxide 10 % topical cleanser RxNorm: 818745 Apply 1 Application Topical QD apply to face, wash rinse and dry once daily (may change to QOD if drying) 08/19/19 22 022 Inactive (%covered by insurance) #60ml refill 11 dx: acne Lyrica 100 mg capsule RxNorm: 828640 Take 1 Capsule(s) Oral QHS every night at bedtime Take 1 capsule by mouth once daily at bedtime 08/19/19 22 022 Inactive Lyrica 100 mg capsule RxNorm: 847733 Take 1 Capsule(s) Oral QHS every night at bedtime Take 1 capsule by mouth once daily at bedtime 08/16/19 22 022 Inactive Lyrica 50 mg capsule RxNorm: 849099 Take 1 Capsule(s) Oral QAM every morning Take 1 capsule by mouth once daily 08/16/19 22 022 Inactive Levemir FlexTouch U-100 Insulin 100 unit/mL (3 mL) subcutaneous pen RxNorm: 508046 Inject 86 Unit(s) Subcutaneous BID 08/05/19 22 022 Inactive d/c 83units BID Lyrica 100 mg capsule RxNorm: 358249 Take 1 Capsule(s) Oral QHS every night at bedtime Take 1 capsule by mouth once daily at bedtime 07/14/19 22 022 Inactive Lyrica 50 mg capsule RxNorm: 976899 Take 1 Capsule(s) Oral QAM every morning Take 1 capsule by mouth once daily 07/14/19 22 022 Inactive Levemir FlexTouch U-100 Insulin 100 unit/mL (3 mL) subcutaneous pen RxNorm: 192728 Inject 83 Unit(s) Subcutaneous BID 07/08/19 22 [...] 30 mg tablet,extended release 24 hr RxNorm: 048776 Take 1 Tablet(s) Oral QD 05/05/20 No Stop Date Active hydralazine 50 mg tablet RxNorm: 997241 Take 1 Tablet(s) Oral QID 05/05/20 21 Inactive venlafaxine ER 225 mg tablet,extended release 24 hr RxNorm: 329497 Take 1 Tablet(s) Oral QD 05/05/20 Inactive venlafaxine ER 225 mg tablet,extended release 24 hr RxNorm: 318378 Take 1 Tablet(s) Oral QD 05/05/20 022 Inactive hydralazine 50 mg tablet RxNorm: 991656 Take 1 Tablet(s) Oral QID 05/05/20 21 Inactive aspirin 81 mg tablet,delayed release RxNorm: 121764 Take 1 Tablet(s) Oral QD 03/31/20 022 Inactive Zetia 10 mg tablet RxNorm: 772866 Take 1 Tablet(s) Oral QD 03/31/20 022 Inactive Vitamin D2 1,250 mcg (50,000 unit) capsule RxNorm: 4249292 Take 1 Capsule(s) Oral QW once a week x 12 weeks 03/31/20 022 Inactive Vitamin D2 1,250 mcg (50,000 unit) capsule RxNorm: 8622082 Take 1 Capsule(s) Oral QW once a week 03/31/20 Inactive Zetia 10 mg tablet RxNorm: 746481 Take 1 Tablet(s) Oral QD 03/31/20 Inactive hydralazine 25 mg tablet RxNorm: 573711 Take 1 Tablet(s) Oral QID 11/ 021 Inactive hydralazine 25 mg tablet RxNorm: 733554 Take 1 Tablet(s) Oral QID 03/31/20 021 Inactive hydralazine 10 mg tablet RxNorm: 688986 Take 1 Tablet(s) Oral QID 03/03/20 021 Inactive cephalexin 500 mg tablet RxNorm: 969502 Take 1 Tablet(s) Oral QID 02/27/20 021 Inactive cephalexin 500 mg tablet RxNorm: 559145 Take 1 Tablet(s) Oral QID 02/27/20 021 Inactive lisinopril 40 mg tablet RxNorm: 101575 Take 1 Tablet(s) Oral QD 02/11/20 023 Inactive Eliquis 5 mg tablet RxNorm: 7067803 Take 1 Tablet(s) Oral BID 01/05/20 022 Inactive Eliquis 5 mg tablet RxNorm: 9368465 Take 2 Tablet(s) Oral QD 01/01/20 21 021 Inactive Lyrica 50 mg capsule RxNorm: 444174 Take 1 Capsule(s) Oral QAM every morning 12/24/19 021 Inactive Lyrica 100 mg capsule RxNorm: 459635 Take 1 Capsule(s) Oral QHS every night at bedtime 12/24/19 021 Inactive clotrimazole 1 % topical cream RxNorm: 033540 Apply to right foot and toes Topical BID 12/04/19 21 023 Inactive metoprolol succinate ER 200 mg tablet,extended release 24 hr RxNorm: 387800 Take 1 Tablet(s) Oral QD 12/04/19 023 Inactive ciprofloxacin 500 mg tablet RxNorm: 621139 Take 1 Tablet(s) Oral QD 11/30/19 021 Inactive DX ofloxacin otic drops Accu-Chek Guide test strips RxNorm: USE 1 TO CHECK GLUCOSE 4 TIMES DAILY AND NEEDED 11/15/19 21 023 Inactive Blood Glucose Test strips RxNorm: Use 1 Test Strip QID at PRN 06/21 023 Inactive E11.42 lisinopril 30 mg tablet RxNorm: 280699 Take 1 Tablet(s) Oral QD 10/30/19 021 Inactive lisinopril 20 mg tablet RxNorm: 137214 Take 1 Tablet(s) Oral QD 10/23/19 21 021 Inactive lisinopril 20 mg tablet RxNorm: 930573 Take 1 Tablet(s) Oral QD 10/23/19 21 Inactive lisinopril 10 mg tablet RxNorm: 164900 Take 1 Tablet(s) Oral QD 10/02/19 21 021 Inactive icosapent ethyl 1 gram capsule RxNorm: 5297564 Take 2 Capsule(s) (2 gm) Oral BID with meals 09/12/19 21 022 Inactive Okay to dispense one 2gm tab if you have that available. icosapent ethyl 1 gram capsule RxNorm: 5660839 Take 2 Capsule(s) Oral BID 09/12/19 021 Inactive Okay to dispense one 2gm tab if you have that available. amlodipine 10 mg tablet RxNorm: 939145 Take 1 Tablet(s) Oral QD 09/04/19 022 Inactive aspirin 81 mg tablet,delayed release RxNorm: 676858 Take 1 Tablet(s) Oral QD 09/04/19 Inactive Levemir FlexTouch U-100 Insulin 100 unit/mL (3 mL) subcutaneous pen RxNorm: 569508 Inject 150 Unit(s) Subcutaneous BID 09/04/19 21 022 Inactive venlafaxine ER 150 mg tablet,extended release 24 hr RxNorm: 227120 Take 1 Tablet(s) Oral QD 09/04/19 21 021 Inactive clotrimazole-betame thasone 1 %-0.05 % topical cream RxNorm: 325927 Apply to rash on red area on left abdomen/chest Topical BID 08/10/19 21 021 Inactive amlodipine 5 mg tablet RxNorm: 188918 Take 1 Tablet(s) Oral QD 07/31/19 21 021 Inactive cephalexin 500 mg tablet RxNorm: 438386 Take 1 Tablet(s) Oral BID BID - Twice Daily 07/31/19 021 Inactive Start 08/01/20 pantoprazole 40 mg tablet,delayed release RxNorm: 049250 Take 1 Tablet(s) Oral QAM every morning 07/08/19 022 Inactive senna 8.6 mg tablet RxNorm: 547965 Take 1 Tablet(s) Oral QD 07/08/19 022 Inactive pravastatin 80 mg tablet RxNorm: 556208 Take 1 Tablet(s) Oral QHS every night at bedtime 07/08/19 Inactive carbamazepine 200 mg tablet RxNorm: 260823 Take 1 Tablet(s) Oral BID 07/08/19 022 Inactive torsemide 20 mg tablet RxNorm: 542071 Take 1 Tablet(s) Oral QD 07/08/19 023 Inactive clopidogrel 75 mg tablet RxNorm: 433907 Take 1 Tablet(s) Oral QD 07/08/19 021 Inactive Blood Glucose Test strips RxNorm: Use 1 Test Strip QID at PRN 07/08/19 Inactive E11.42 Novolog Flexpen U-100 Insulin aspart 100 unit/mL (3 mL) subcutaneous RxNorm: 5348122 Administer per sliding scale Milliliter(s) Subcutaneous TID 151-200: 10 u; 201-250: 20 u; 251-300: 30 u; 301-350: 40 u; 351-400: 50 u. 07/08/19 022 Inactive lisinopril 5 mg tablet RxNorm: 093254 Take 1 Tablet(s) Oral QD 07/08/19 021 Inactive Novolog Flexpen U-100 Insulin aspart 100 unit/mL (3 mL) subcutaneous RxNorm: 0314176 Inject 85 Unit(s) Subcutaneous TID 07/08/19 21 022 Inactive clotrimazole 1 % topical cream RxNorm: 116868 Apply to bilateral groin areas Topical BID 07/08/19 022 Inactive metoprolol succinate ER 200 mg tablet,extended release 24 hr RxNorm: 844096 Take 1 Tablet(s) Oral QD 07/08/19 21 021 Inactive Vitamin D3 25 mcg (1,000 unit) tablet RxNorm: 098744 Take 1 Tablet(s) Oral QD 07/08/19 21 Inactive isosorbide dinitrate 30 mg tablet RxNorm: 297182 Take 1 Tablet(s) Oral QD 07/08/19 Inactive Levemir FlexTouch U-100 Insulin 100 unit/mL (3 mL) subcutaneous pen RxNorm: 432270 Inject 140 Unit(s) Subcutaneous BID 07/08/19 021 Inactive venlafaxine 75 mg tablet RxNorm: 887978 Take 1 Tablet(s) Oral QD 07/08/19 Inactive acetaminophen 500 mg tablet RxNorm: 086298 Take 1 Tablet(s) Oral TID as needed for headache 06/18/19 Inactive acetaminophen 500 mg tablet RxNorm: 015698 Take 1 Tablet(s) Oral TID as needed for headache 06/18/19 Inactive Lyrica 100 mg capsule RxNorm: 011341 Take 1 Capsule(s) Oral QHS every night at bedtime 06/11/19 021 Inactive Lyrica 50 mg capsule RxNorm: 435192 Take 1 Capsule(s) Oral QAM every morning 06/10/19 021 Inactive hydrocortisone 2.5 % topical cream RxNorm: 675685 Apply to bilateral groin creases Topical BID 05/15/20 20 021 Inactive clotrimazole 1 % topical cream RxNorm: 372501 Apply to bilateral groin areas Topical BID 05/15/20 20 021 Inactive Lyrica 50 mg capsule RxNorm: 891209 Take 1 Capsule(s) Oral QAM every morning 05/14/20 20 Inactive Lyrica 100 mg capsule RxNorm: 093334 Take 1 Capsule(s) Oral QHS every night [...] Inactive Nystop 100,000 unit/gram topical powder RxNorm: 224587 Apply to abd folds, under breasts and L side of groin Topical BID x 14 days, then BID PRN 04/08/20 20 021 Inactive dx: yeast dermatitis Lyrica 100 mg capsule RxNorm: 947707 Take 1 Capsule(s) Oral QHS every night at bedtime 03/13/20 20 Inactive Lyrica 50 mg capsule RxNorm: 287178 Take 1 Capsule(s) Oral QAM every morning 03/13/20 20 Inactive ketoconazole 2 % shampoo RxNorm: 436845 Apply Topical two times a week with showers 03/11/20 20 Inactive cholecalciferol (vitamin D3) 50 mcg (2,000 unit) tablet RxNorm: 789960 Take 1 Tablet(s) Oral QD 03/11/20 20 021 Inactive Zetia 10 mg tablet RxNorm: 640277 Take 1 Tablet(s) Oral QD 03/07/20 20 021 Inactive Zetia 10 mg tablet RxNorm: 667651 Take 1 Tablet(s) Oral QD 03/07/20 20 Inactive Lyrica 50 mg capsule RxNorm: 086917 Take 1 Capsule(s) Oral QAM every morning 02/15/20 20 Inactive Lyrica 100 mg capsule RxNorm: 238899 Take 1 Capsule(s) Oral QHS every night at bedtime 02/15/20 20 Inactive Lyrica 100 mg capsule RxNorm: 782599 Take 1 Capsule(s) Oral QHS every night at bedtime 02/15/20 Inactive Lyrica 50 mg capsule RxNorm: 203876 Take 1 Capsule(s) Oral QAM every morning 02/15/20 20 Inactive venlafaxine ER 75 mg capsule,extended release 24 hr RxNorm: 105025 Take 3 Capsule(s) Oral QD 06/12/19 Active polyethylene glycol 3350 17 gram/dose oral powder RxNorm: 996040 Take 17=1 capful Gram(s) Oral BID as needed mix with 4-8oz of liquid 06/12/19 Active icosapent ethyl 1 gram capsule RxNorm: 5547060 Take 2 Capsule(s) (2 gm) Oral BID with meals 10/07/19 023 Inactive Okay to dispense one 2gm tab if you have that available. metoprolol succinate ER 200 mg tablet,extended release 24 hr RxNorm: 718469 Take 1 Tablet(s) Oral QD 08/12/19 Active loperamide 2 mg capsule RxNorm: 241912 Take 1 Capsule(s) Oral QID as needed 06/12/19 Active hydralazine 50 mg tablet RxNorm: 631038 Take 1 Tablet(s) Oral QID 08/12/19 23 Active Levemir FlexTouch U-100 Insulin 100 unit/mL (3 mL) subcutaneous pen RxNorm: 861968 Inject 80 Unit(s) Subcutaneous BID 07/14/19 23 023 Inactive Novolog Flexpen U-100 Insulin aspart 100 unit/mL (3 mL) subcutaneous RxNorm: 3987344 Insert 30 Unit(s) Subcutaneous TID with meals [...] Encounter Performer Location Location Address Codes Date (00728) Home or Residence Visit Est Pt - Moderate Level, 40 mins Diagnosis: Recurrent major depressive disorder, in partial remission[ICD10: F33.41] Diagnosis: High risk medication use[ICD10: Z79.899] Sandra Clark [facility] [place] [facility] [place] [address] [place] [id number] CPT-4: 88967 09/15/2022 Plan of Care Planned Activity Notes Codes Status Date Referral: [facility] WPtel: [address], [address] [id number] Referral Records Received 09/21/2022 Patient Education: Patient M edication Summary Completed 09/15/2022 Patient Education: Influenza Vaccine Completed 09/15/2022 Appointment: Tapan Shirley WPtel: [address] [facility] [address] [id number] [place] F/U 08/11/2022 Appointment: Tapan Shirley WPtel: [address] [facility] [address] [id number] [place] F/U 07/14/2022 Appointment: Tapan Shirley WPtel: [address] [facility] [address] [id number] [place] F/U 02/10/2022 Referral: [facility] WPtel: [address] [facility] [address] [id number] [place] Referral Completed 05/28/2021 Referral: General Cardiology [...] attention.??Sister Jyotsna involved in his care cell# [phone]??Guardian: Don (tapan met in person 09/01/21), now has Lexii (same group as don)Lab Schedule: /September* 10/06/2022 High risk medication use Tolerating current [...] in self care.? Continue current medication regimen. . 09/15/2022
--- OUTSIDE RECORDS SUMMARY | 2022-11-09 23:41 | XMS_ITS | CCD ---
Author Name Unknown Organization Unknown Care Team Providers Care Watch And Clock Repairer Name Role Phone Tapan Shirley PA-C Primary Care Provider Unavailabl e Tapan Shirley PA-C Chronic Care Management Unavaila ble Summary Purpose DataExchange Insurance Providers Payer name Policy type / Coverage type Covered democrat ID Effective Begin Date Effective End Date Medicare PA Medicare Part B [id number] Unknown Unknown Medicaid [place] Medicare Part B [id number] Unknown Unknown Family history Sister Brittany Suggs [...] [facility] 09/03/[address]: 0785407 Non-Smoker / No History of Smoking 09/02/[address]: [id number] No Alcohol Consum ption 09/02/2020 Allergies, Adverse Reactions, Alerts Substance Reaction Codes Entered Date Inactivated Date Status LISINOPRIL RxNorm: 67007 02/12/2020 No Inactive Da te Active Metformin [...] 08/11/2022 Active Coronary artery disease invo lving [place] coronary artery of [place] heart, angina presence unspecified ICD-10: I25.10 ICD-9: [...] Fill Instructions aripiprazole 15 mg tablet RxNorm: 762344 /2 TAB (7.5MG) ORALLY DAILY (DX:MAJOR DEPRESSIVE DISORDER) 09/23/19 23 023 Active Accu-Chek Guide test strips RxNorm: Use 1 Test Strip QID 09/15/19 23 024 Active ok to substitute with any covered alternative test strip Lancets,Thin 28 gauge RxNorm: Use 1 as directed QID 09/15/19 23 024 Active torsemide 20 mg tablet RxNorm: 765659 Take 1 Tablet(s) Oral BID 09/09/19 23 024 Active d/c once daily dosing carvedilol 25 mg tablet RxNorm: 793873 Take 1 Tablet(s) Oral QD 08/25/19 23 024 Active pregabalin 150 mg capsule RxNorm: 272232 1 Capsule(s) Oral HS at bed time 08/18/19 23 023 Active pregabalin 100 mg capsule RxNorm: 570127 1 Capsule(s) Oral QAM every morning 08/18/19 23 023 Active lisinopril 20 mg tablet RxNorm: 879949 Give 1 Tablet(s) Oral QD 07/28/19 23 023 Inactive carvedilol 25 mg tablet RxNorm: 469414 1 Tablet(s) Oral QD 07/28/19 23 023 Inactive Lyrica 150 mg capsule RxNorm: 608653 Take 1 Capsule(s) Oral QHS every night at bedtime 07/19/19 023 Inactive d/c 100mg dose Diflucan 150 mg tablet RxNorm: 361793 Take 1 Tablet(s) Oral QD repeat on day 3 and 6 07/19/19 23 023 Inactive pregabalin 100 mg capsule RxNorm: 928338 Take 1 Capsule(s) Oral QAM every morning 07/19/19 023 Inactive Humulin R Regular U-100 Insulin 100 unit/mL injection solution RxNorm: 009221 85 Unit(s) Injection TID 07/13/19 23 023 Inactive gatifloxacin 0.5 % eye drops RxNorm: 072677 Instill 1 Drop(s) as directed TID Instill 1 drop in to affected eye(s) starting 1 day prior to surgery and continue until gone (do not exceed 4 weeks). 07/13/19 23 023 Inactive carvedilol 25 mg tablet RxNorm: 639112 2 Tablet(s) Oral BID 07/13/19 023 Inactive ketorolac 0.5 % eye drops RxNorm: 145567 Instill 1 Drop(s) as directed QID Instill 1 drop into affected eye(s) 4 times daily starting 1 day prior to surgery and continue until gone (do not exceed 4 weeks). 07/13/19 23 023 Inactive Diflucan 150 mg tablet RxNorm: 661537 Take 1 Tablet(s) Oral QD repeat on day 3 and 6 06/30/19 23 023 Inactive Accu-Chek Guide test strips RxNorm: Use 1 Test Strip QID Use 1 test strip to monitor blood glucose 4 times daily and as needed. Dx:E11.42. 06/23/19 23 023 Inactive ok to substitute with any covered alternative test strip dextromethorphan-gu aifenesin 10 mg-100 mg/5 mL oral liquid RxNorm: 263265 Take 10 Milliliter(s) Oral every 4 hours as needed for cough 06/19/19 023 Inactive dextromethorphan-gu aifenesin 10 mg-100 mg/5 mL oral liquid RxNorm: 221084 Take 10 Milliliter(s) Oral every 4 hours as needed for cough 06/19/19 023 Inactive Lyrica 150 mg capsule RxNorm: 286122 Take 1 Capsule(s) Oral QHS every night at bedtime 06/18/19 023 Inactive d/c 100mg dose aripiprazole 15 mg tablet RxNorm: 720881 1/2 TAB (7.5MG) ORALLY DAILY (DX:MAJOR DEPRESSIVE DISORDER) 06/05/19 23 023 Inactive pregabalin 100 mg capsule RxNorm: 085734 1 Capsule(s) Oral QAM every morning 06/02/19 023 Inactive Banophen 50 mg capsule RxNorm: 7809550 Take 1 Capsule(s) Oral Q6H every 6 hours as needed 05/19/19 23 No Stop Date Active Novolog Flexpen U-100 Insulin aspart 100 unit/mL (3 mL) subcutaneous RxNorm: 9915122 Inject 10 Unit(s) Subcutaneous QHS every night at bedtime with nighttime snack 04/08/20 022 Inactive Novolog Flexpen U-100 Insulin aspart 100 unit/mL (3 mL) subcutaneous RxNorm: 8473722 Inject 42 Unit(s) Subcutaneous TID in addition to sliding scale 04/08/20 022 Inactive d/c 36u albuterol sulfate HFA 90 mcg/actuation aerosol inhaler RxNorm: 0457495 Take 2 Puff(s) Inhalation Q4H every four hours as needed as needed for SOB, cough, or wheezing 04/07/20 030 Active Banophen 50 mg capsule RxNorm: 8241243 Take 1 Capsule(s) Oral Q6H every 6 hours as needed 04/06/20 023 Inactive diphenhydramine 50 mg tablet RxNorm: 1939670 Take 1 Tablet(s) Oral Q6H every 6 hours as needed 04/06/20 22 022 Inactive diphenhydramine 50 mg tablet RxNorm: 2635338 1 Tablet(s) Oral Q6H every 6 hours as needed 04/06/20 22 022 Inactive Abilify 15 mg tablet RxNorm: 201450 1/2 Tablet(s) Oral QD 03/10/20 023 Inactive Shingrix (PF) 50 mcg/0.5 mL intramuscular suspension, kit RxNorm: 8324460 Administer 1/2 Milliliter(s) Intramuscular QD one time shingrix step 2 ( step 1 given 11/04/21) WITH needle - Nursing please administer upon arrival and once administered post a bridge message with date of administration, 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, expiration date, and lot# so we can update [facility] 02/18/20 22 022 Inactive dispense with needle Shingrix (PF) 50 mcg/0.5 mL intramuscular suspension, kit RxNorm: 3468980 Administer 1/2 Milliliter(s) Intramuscular QD one time shingrix step 2 ( step 1 given 11/04/21) WITH needle - Nursing please administer upon arrival and once administered post a bridge message with date of administration, 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, expiration date, and lot# so we can update [facility] 02/18/20 22 022 Inactive dispense with needle acetaminophen 500 mg tablet RxNorm: 421517 Take 1 Tablet(s) Oral TID 01/08/20 22 023 Active d/c PRN order polyethylene glycol 3350 17 gram/dose oral powder RxNorm: 595773 Take 17=1 capful Gram(s) Oral QD mix with 4-8oz of liquid 01/08/20 22 023 Active take this in addition to BID prn order Lyrica 100 mg capsule RxNorm: 742342 Take 1 Capsule(s) Oral QAM every morning 01/08/20 22 022 Inactive d/c 50mg dose Lyrica 150 mg capsule RxNorm: 259713 Take 1 Capsule(s) Oral QHS every night at bedtime 01/08/20 22 023 Inactive d/c 100mg dose Abilify 5 mg tablet RxNorm: 867137 Take 1 Tablet(s) Oral QD take 1 tab po QD #30 refill 5 dx: MDD 12/12/19 22 022 Inactive Abilify 5 mg tablet RxNorm: 004380 Take 1 Tablet(s) Oral QD take 1 tab po QD #30 refill 5 dx: MDD 12/12/19 22 022 Inactive chlorthalidone 25 mg tablet RxNorm: 203658 Take 1 Tablet(s) Oral QAM every morning 12/10/19 22 023 Active Novolog Flexpen U-100 Insulin aspart 100 unit/mL (3 mL) subcutaneous RxNorm: 7448535 Inject 42 Unit(s) Subcutaneous TID in addition to sliding scale 12/10/19 22 022 Inactive d/c 36u pregabalin 50 mg capsule RxNorm: 833862 Take 1 Capsule(s) Oral QAM every morning 11/12/19 22 022 Inactive tetanus-diphtheria toxoids-Td 2 Lf unit-2 Lf unit/0.5 mL IM suspension RxNorm: 139 Take 0.5 Miscellaneous Intramuscular 11/12/19 22 022 Inactive need tdap - nursing to administer upon arrival pregabalin 50 mg capsule RxNorm: 799705 Take 1 Capsule(s) Oral QAM every morning 10/16/19 22 022 Inactive pregabalin 50 mg capsule RxNorm: 800499 Take 1 Capsule(s) Oral QAM every morning 10/16/19 22 022 Inactive pregabalin 50 mg capsule RxNorm: 613882 1 Capsule(s) Oral QAM every morning 10/15/19 22 022 Inactive Shingrix (PF) 50 mcg/0.5 mL intramuscular suspension, kit RxNorm: 1995663 Administer 1/2 Milliliter(s) Intramuscular one time Nursing please administer upon arrival and once administered post a bridge message with date of administration, 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 10/09/19 22 022 Inactive shingrix step 1 cholecalciferol (vitamin D3) 1,250 mcg (50,000 unit) capsule RxNorm: 880596 Take 1 Capsule(s) Oral QW once a [...] aspart 100 unit/mL (3 mL) subcutaneous RxNorm: 5600569 Inject 10 Unit(s) Subcutaneous QHS every night at bedtime with nighttime snack 10/08/19 22 Inactive Shingrix (PF) 50 mcg/0.5 mL intramuscular suspension, kit RxNorm: 7353079 ADMINISTER 2-DOSE SERIES PER CDC GUIDELINES 10/08/19 22 022 Active Shingrix (PF) 50 mcg/0.5 mL intramuscular suspension, kit RxNorm: 3860654 ADMINISTER 2-DOSE SERIES PER CDC GUIDELINES 10/08/19 22 022 Inactive Novolog Flexpen U-100 Insulin aspart 100 unit/mL (3 mL) subcutaneous RxNorm: 6970576 Inject 36 Unit(s) Subcutaneous TID in addition to sliding scale 10/08/19 22 022 Inactive Novofine Autocover 30 gauge x 1/3 needle RxNorm: Use 1 Miscellaneous UD as directed Use 1 needle as directed to administer insulin 5 times a day Dx:E11.42. 10/03/19 22 Inactive ok to substitute with any covered alternative pen needle benzoyl peroxide 10 % topical cleanser RxNorm: 486569 Apply 1 Application Topical QD apply to face, wash rinse and dry once daily (may change to QOD if drying) 08/19/19 22 022 Inactive (%covered by insurance) #60ml refill 11 dx: acne benzoyl peroxide 10 % topical cleanser RxNorm: 387876 Apply 1 Application Topical QD apply to face, wash rinse and dry once daily (may change to QOD if drying) 08/19/19 22 022 Inactive (%covered by insurance) #60ml refill 11 dx: acne benzoyl peroxide 10 % topical cleanser RxNorm: 449705 Apply 1 Application Topical QD apply to face, wash rinse and dry once daily (may change to QOD if drying) 08/19/19 22 022 Inactive (%covered by insurance) #60ml refill 11 dx: acne Lyrica 50 mg capsule RxNorm: 802253 Take 1 Capsule(s) Oral QAM every morning Take 1 capsule by mouth once daily 08/19/19 22 022 Inactive benzoyl peroxide 10 % topical cleanser RxNorm: 091317 Apply 1 Application Topical QD apply to face, wash rinse and dry once daily (may change to QOD if drying) 08/19/19 22 022 Inactive (%covered by insurance) #60ml refill 11 dx: acne Lyrica 100 mg capsule RxNorm: 255032 Take 1 Capsule(s) Oral QHS every night at bedtime Take 1 capsule by mouth once daily at bedtime 08/19/19 22 022 Inactive Lyrica 100 mg capsule RxNorm: 445006 Take 1 Capsule(s) Oral QHS every night at bedtime Take 1 capsule by mouth once daily at bedtime 08/16/19 22 022 Inactive Lyrica 50 mg capsule RxNorm: 293339 Take 1 Capsule(s) Oral QAM every morning Take 1 capsule by mouth once daily 08/16/19 22 022 Inactive Levemir FlexTouch U-100 Insulin 100 unit/mL (3 mL) subcutaneous pen RxNorm: 597333 Inject 86 Unit(s) Subcutaneous BID 08/05/19 22 022 Inactive d/c 83units BID Lyrica 100 mg capsule RxNorm: 038254 Take 1 Capsule(s) Oral QHS every night at bedtime Take 1 capsule by mouth once daily at bedtime 07/14/19 22 022 Inactive Lyrica 50 mg capsule RxNorm: 841369 Take 1 Capsule(s) Oral QAM every morning Take 1 capsule by mouth once daily 07/14/19 22 022 Inactive Levemir FlexTouch U-100 Insulin 100 unit/mL (3 mL) subcutaneous pen RxNorm: 261587 Inject 83 Unit(s) Subcutaneous BID 07/08/19 22 [...] 30 mg tablet,extended release 24 hr RxNorm: 793284 Take 1 Tablet(s) Oral QD 05/05/20 No Stop Date Active hydralazine 50 mg tablet RxNorm: 893693 Take 1 Tablet(s) Oral QID 05/05/20 21 022 Inactive venlafaxine ER 225 mg tablet,extended release 24 hr RxNorm: 425146 Take 1 Tablet(s) Oral QD 05/05/20 Inactive venlafaxine ER 225 mg tablet,extended release 24 hr RxNorm: 044110 Take 1 Tablet(s) Oral QD 05/05/20 21 022 Inactive hydralazine 50 mg tablet RxNorm: 304472 Take 1 Tablet(s) Oral QID 05/05/20 21 Inactive aspirin 81 mg tablet,delayed release RxNorm: 572222 Take 1 Tablet(s) Oral QD 03/31/20 022 Inactive Zetia 10 mg tablet RxNorm: 084848 Take 1 Tablet(s) Oral QD 03/31/20 022 Inactive Vitamin D2 1,250 mcg (50,000 unit) capsule RxNorm: 1281913 Take 1 Capsule(s) Oral QW once a week x 12 weeks 03/31/20 022 Inactive Vitamin D2 1,250 mcg (50,000 unit) capsule RxNorm: 6443346 Take 1 Capsule(s) Oral QW once a week 03/31/20 Inactive Zetia 10 mg tablet RxNorm: 382039 Take 1 Tablet(s) Oral QD 03/31/20 21 Inactive hydralazine 25 mg tablet RxNorm: 436928 Take 1 Tablet(s) Oral QID 11/15 021 Inactive hydralazine 25 mg tablet RxNorm: 570156 Take 1 Tablet(s) Oral QID 03/31/20 021 Inactive hydralazine 10 mg tablet RxNorm: 158619 Take 1 Tablet(s) Oral QID 03/03/20 021 Inactive cephalexin 500 mg tablet RxNorm: 057314 Take 1 Tablet(s) Oral QID 02/27/20 021 Inactive cephalexin 500 mg tablet RxNorm: 291059 Take 1 Tablet(s) Oral QID 02/27/20 021 Inactive lisinopril 40 mg tablet RxNorm: 714777 Take 1 Tablet(s) Oral QD 02/11/20 023 Inactive Eliquis 5 mg tablet RxNorm: 9225572 Take 1 Tablet(s) Oral BID 01/05/20 022 Inactive Eliquis 5 mg tablet RxNorm: 2846031 Take 2 Tablet(s) Oral QD 01/01/20 021 Inactive Lyrica 50 mg capsule RxNorm: 301594 Take 1 Capsule(s) Oral QAM every morning 12/24/19 021 Inactive Lyrica 100 mg capsule RxNorm: 104128 Take 1 Capsule(s) Oral QHS every night at bedtime 12/24/19 021 Inactive clotrimazole 1 % topical cream RxNorm: 554230 Apply to right foot and toes Topical BID 12/04/19 21 023 Inactive metoprolol succinate ER 200 mg tablet,extended release 24 hr RxNorm: 499782 Take 1 Tablet(s) Oral QD 12/04/19 023 Inactive ciprofloxacin 500 mg tablet RxNorm: 890061 Take 1 Tablet(s) Oral QD 11/30/19 021 Inactive DX ofloxacin otic drops Accu-Chek Guide test strips RxNorm: USE 1 TO CHECK GLUCOSE 4 TIMES DAILY AND NEEDED 11/15/19 21 023 Inactive Blood Glucose Test strips RxNorm: Use 1 Test Strip QID at PRN 06/21/ 023 Inactive E11.42 lisinopril 30 mg tablet RxNorm: 795082 Take 1 Tablet(s) Oral QD 10/30/19 021 Inactive lisinopril 20 mg tablet RxNorm: 804333 Take 1 Tablet(s) Oral QD 10/23/19 21 021 Inactive lisinopril 20 mg tablet RxNorm: 800819 Take 1 Tablet(s) Oral QD 10/23/19 21 021 Inactive lisinopril 10 mg tablet RxNorm: 670760 Take 1 Tablet(s) Oral QD 10/02/19 21 021 Inactive icosapent ethyl 1 gram capsule RxNorm: 2148600 Take 2 Capsule(s) (2 gm) Oral BID with meals 09/12/19 21 022 Inactive Okay to dispense one 2gm tab if you have that available. icosapent ethyl 1 gram capsule RxNorm: 5195941 Take 2 Capsule(s) Oral BID 09/12/19 021 Inactive Okay to dispense one 2gm tab if you have that available. amlodipine 10 mg tablet RxNorm: 095651 Take 1 Tablet(s) Oral QD 09/04/19 022 Inactive aspirin 81 mg tablet,delayed release RxNorm: 291874 Take 1 Tablet(s) Oral QD 09/04/19 21 Inactive Levemir FlexTouch U-100 Insulin 100 unit/mL (3 mL) subcutaneous pen RxNorm: 890702 Inject 150 Unit(s) Subcutaneous BID 09/04/19 21 022 Inactive venlafaxine ER 150 mg tablet,extended release 24 hr RxNorm: 856173 Take 1 Tablet(s) Oral QD 09/04/19 21 021 Inactive clotrimazole-betame thasone 1 %-0.05 % topical cream RxNorm: 290150 Apply to rash on red area on left abdomen/chest Topical BID 08/10/19 21 021 Inactive amlodipine 5 mg tablet RxNorm: 196795 Take 1 Tablet(s) Oral QD 07/31/19 21 021 Inactive cephalexin 500 mg tablet RxNorm: 593553 Take 1 Tablet(s) Oral BID BID - Twice Daily 07/31/19 21 021 Inactive Start 08/01/20 pantoprazole 40 mg tablet,delayed release RxNorm: 586446 Take 1 Tablet(s) Oral QAM every morning 07/08/19 022 Inactive senna 8.6 mg tablet RxNorm: 066876 Take 1 Tablet(s) Oral QD 07/08/19 022 Inactive pravastatin 80 mg tablet RxNorm: 566051 Take 1 Tablet(s) Oral QHS every night at bedtime 07/08/19 Inactive carbamazepine 200 mg tablet RxNorm: 888285 Take 1 Tablet(s) Oral BID 07/08/19 022 Inactive torsemide 20 mg tablet RxNorm: 909922 Take 1 Tablet(s) Oral QD 07/08/19 023 Inactive clopidogrel 75 mg tablet RxNorm: 313922 Take 1 Tablet(s) Oral QD 07/08/19 021 Inactive Blood Glucose Test strips RxNorm: Use 1 Test Strip QID at PRN 07/08/19 Inactive E11.42 Novolog Flexpen U-100 Insulin aspart 100 unit/mL (3 mL) subcutaneous RxNorm: 9359756 Administer per sliding scale Milliliter(s) Subcutaneous TID 151-200: 10 u; 201-250: 20 u; 251-300: 30 u; 301-350: 40 u; 351-400: 50 u. 07/08/19 022 Inactive lisinopril 5 mg tablet RxNorm: 782246 Take 1 Tablet(s) Oral QD 07/08/19 021 Inactive Novolog Flexpen U-100 Insulin aspart 100 unit/mL (3 mL) subcutaneous RxNorm: 4540019 Inject 85 Unit(s) Subcutaneous TID 07/08/19 022 Inactive clotrimazole 1 % topical cream RxNorm: 026559 Apply to bilateral groin areas Topical BID 07/08/19 022 Inactive metoprolol succinate ER 200 mg tablet,extended release 24 hr RxNorm: 366330 Take 1 Tablet(s) Oral QD 07/08/19 Inactive Vitamin D3 25 mcg (1,000 unit) tablet RxNorm: 603350 Take 1 Tablet(s) Oral QD 07/08/19 Inactive isosorbide dinitrate 30 mg tablet RxNorm: 942518 Take 1 Tablet(s) Oral QD 07/08/19 Inactive Levemir FlexTouch U-100 Insulin 100 unit/mL (3 mL) subcutaneous pen RxNorm: 219070 Inject 140 Unit(s) Subcutaneous BID 07/08/19 021 Inactive venlafaxine 75 mg tablet RxNorm: 448316 Take 1 Tablet(s) Oral QD 07/08/19 Inactive acetaminophen 500 mg tablet RxNorm: 674426 Take 1 Tablet(s) Oral TID as needed for headache 06/18/19 Inactive acetaminophen 500 mg tablet RxNorm: 543853 Take 1 Tablet(s) Oral TID as needed for headache 06/18/19 021 Inactive Lyrica 100 mg capsule RxNorm: 892221 Take 1 Capsule(s) Oral QHS every night at bedtime 06/11/19 Inactive Lyrica 50 mg capsule RxNorm: 471513 Take 1 Capsule(s) Oral QAM every morning 06/10/19 21 021 Inactive hydrocortisone 2.5 % topical cream RxNorm: 187532 Apply to bilateral groin creases Topical BID 05/15/20 20 021 Inactive clotrimazole 1 % topical cream RxNorm: 037499 Apply to bilateral groin areas Topical BID 05/15/20 20 021 Inactive Lyrica 50 mg capsule RxNorm: 114727 Take 1 Capsule(s) Oral QAM every morning 05/14/20 20 Inactive Lyrica 100 mg capsule RxNorm: 025689 Take 1 Capsule(s) Oral QHS every night [...] Inactive Nystop 100,000 unit/gram topical powder RxNorm: 375219 Apply to abd folds, under breasts and L side of groin Topical BID x 14 days, then BID PRN 04/08/20 20 021 Inactive dx: yeast dermatitis Lyrica 100 mg capsule RxNorm: 888288 Take 1 Capsule(s) Oral QHS every night at bedtime 03/13/20 20 Inactive Lyrica 50 mg capsule RxNorm: 250674 Take 1 Capsule(s) Oral QAM every morning 03/13/20 20 Inactive ketoconazole 2 % shampoo RxNorm: 152476 Apply Topical two times a week with showers 03/11/20 20 Inactive cholecalciferol (vitamin D3) 50 mcg (2,000 unit) tablet RxNorm: 415189 Take 1 Tablet(s) Oral QD 03/11/20 20 021 Inactive Zetia 10 mg tablet RxNorm: 332146 Take 1 Tablet(s) Oral QD 03/07/20 20 021 Inactive Zetia 10 mg tablet RxNorm: 174924 Take 1 Tablet(s) Oral QD 03/07/20 20 Inactive Lyrica 50 mg capsule RxNorm: 279784 Take 1 Capsule(s) Oral QAM every morning 02/15/20 20 Inactive Lyrica 100 mg capsule RxNorm: 809585 Take 1 Capsule(s) Oral QHS every night at bedtime 02/15/20 20 Inactive Lyrica 100 mg capsule RxNorm: 467305 Take 1 Capsule(s) Oral QHS every night at bedtime 02/15/20 Inactive Lyrica 50 mg capsule RxNorm: 900621 Take 1 Capsule(s) Oral QAM every morning 02/15/20 20 Inactive venlafaxine ER 75 mg capsule,extended release 24 hr RxNorm: 429401 Take 3 Capsule(s) Oral QD 06/12/19 Active polyethylene glycol 3350 17 gram/dose oral powder RxNorm: 067530 Take 17=1 capful Gram(s) Oral BID as needed mix with 4-8oz of liquid 06/12/19 Active icosapent ethyl 1 gram capsule RxNorm: 0605481 Take 2 Capsule(s) (2 gm) Oral BID with meals 10/07/19 023 Inactive Okay to dispense one 2gm tab if you have that available. metoprolol succinate ER 200 mg tablet,extended release 24 hr RxNorm: 795870 Take 1 Tablet(s) Oral QD 08/12/19 Active loperamide 2 mg capsule RxNorm: 610415 Take 1 Capsule(s) Oral QID as needed 06/12/19 Active hydralazine 50 mg tablet RxNorm: 930691 Take 1 Tablet(s) Oral QID 08/12/19 23 Active Levemir FlexTouch U-100 Insulin 100 unit/mL (3 mL) subcutaneous pen RxNorm: 031588 Inject 80 Unit(s) Subcutaneous BID 07/14/19 23 023 Inactive Novolog Flexpen U-100 Insulin aspart 100 unit/mL (3 mL) subcutaneous RxNorm: 5222147 Insert 30 Unit(s) Subcutaneous TID with meals [...] Codes Status Date Referral: [facility] [address] [phone] [address] [id number] [place] Referral Records Received 09/21/2022 Referral: [facility] WPtel: [phone] [id number] [place] Referral Completed 05/28/2021 Referral: General Cardiology [...] attention.??Sister Jyotsna involved in his care cell# [phone]??Guardian: Don (tapan met in person 09/01/21), now has Lexii (same group as don)Lab Schedule: * 10/06/2022
--- OUTSIDE RECORDS SUMMARY | 2022-11-09 23:42 | XMS_ITS | CCD ---
Author Name Unknown Organization Unknown Care Team Providers Care Student Liaison Officer Name Role Phone Tapan Shirley PA-C Primary Care Provider Unavailabl e Tapan Shirley PA-C Chronic Care Management Unavaila ble Summary Purpose DataExchange Insurance Providers Payer name Policy type / Coverage type Covered green party ID Effective Begin Date Effective End Date Medicare [place] Medicare Part B [id number] Unknown Unknown Medicaid [place] Medicare Part B [id number] Unknown Unknown Family history Sister Brittany Suggs [...] Snf 09/03/[address]: 3518630 Non-Smoker / No History of Smoking 09/02/[address]: 853346529 No Alcohol Consum ption 09/02/2020 Allergies, Adverse Reactions, Alerts Substance Reaction Codes Entered Date Inactivated Date Status LISINOPRIL RxNorm: 93965 02/12/2020 No Inactive Da te Active Metformin HCl Unknown 02/12/2020 No Inactive Cristiano e Active Problems Condition Codes Effective Dates Condition St atus 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 ICD-10: K59.01 ICD-9: 564.01 10/06/2022 Active Hyperlipidemia associated wi th type 2 diabetes mellitus ICD-10: E11.69 ICD-9: 250.80 10/06/2022 Active Hypertensive heart disease w ithout heart failure ICD-10: I11.9 ICD-9: 402.90 10/06/2022 Active Lower extremity edema ICD-10: R60.0 ICD-9: 782.3 10/06/2022 Active Pain of right heel ICD-10: M79.671 ICD-9: 729.5 10/06/2022 Active Stage 2 chronic kidney disea se due to type 2 diabetes mellitus ICD-10: E11.22 ICD-9: 250.40 10/06/2022 Active Type 2 diabetes mellitus wit h diabetic polyneuropathy, with long-term current use of insulin ICD-10: E11.42 ICD-9: 250.60 10/06/2022 Active High risk medication use ICD-10: Z79.899 ICD-9: V58.69 09/15/2022 Active Recurrent major depressive disorder, in partial remission ICD-10: F33.41 ICD-9: 296.35 09/15/2022 Active Amputated toe of right foot ICD-10: S98. 131A ICD-9: 895.0 08/11/2022 Active Coronary artery disease invo lving [place] coronary artery of [place] heart, angina presence unspecified ICD-10: I25.10 ICD-9: 414.01 08/11/2022 Active Onychogryposis ICD-10: L60.2 ICD-9: 703.8 08/11/2022 Active Pre-op evaluation ICD-10: Z01.818 ICD-9: V72.84 08/11/2022 Active Secondary hypertension ICD-10: I15.9 ICD-9: 405.99 08/11/2022 Active Candidiasis, intertrigo ICD-10: B37.2 ICD-9: 112.3 07/14/2022 Active Major depression, recurrent ICD-10: F33. [...] ICD-10: Z23 ICD-9: V03.89 02/10/2022 Resolved intermediate card tender (current) use of insulin ICD-10: Z79.4 02/10 Resolved Muscular pain ICD-10: M79.10 ICD-9: 729.1 02/10/2022 Resolved Dandruff in adult ICD-10: L21.0 [...] Instructions hydrocortisone 2.5 % topical cream RxNorm: 011152 Apply 1/2 Gram(s) Topical BID as needed 11/10/19 No Stop Date Active clotrimazole 1 % topical cream RxNorm: 495423 Apply 1/2 Gram(s) Topical BID Apply to affected areas of groin, periarea, and abdominal topically 2 times daily 11/10/19 023 Active Levemir FlexPen 100 unit/mL (3 mL) solution subcutaneous insulin pen RxNorm: 405716 Inject 30 Unit(s) Subcutaneous BID 10/07/19 024 Active Humulin R U-500 (Concentrated) Insulin 500 unit/mL subcutaneous soln RxNorm: 941635 Inject 100 Unit(s) Subcutaneous TID 10/07/19 024 Active Ozempic 0.25 mg or 0.5 mg (2 mg/3 mL) subcutaneous pen injector RxNorm: 3594288 Inject 1/2 Milligram(s) Subcutaneous QW once a week 10/07/19 024 Active aripiprazole 15 mg tablet RxNorm: 988730 1/2 TAB (7.5MG) ORALLY DAILY (DX:MAJOR DEPRESSIVE DISORDER) 09/23/19 023 Active Accu-Chek Guide test strips RxNorm: Use 1 Test Strip QID 09/15/19 024 Active ok to substitute with any covered alternative test strip Lancets,Thin 28 gauge RxNorm: Use 1 as directed QID 09/15/19 024 Active torsemide 20 mg tablet RxNorm: 974822 Take 1 Tablet(s) Oral BID 09/09/19 024 Active d/c once daily dosing carvedilol 25 mg tablet RxNorm: 329442 Take 1 Tablet(s) Oral QD 08/25/19 024 Active pregabalin 150 mg capsule RxNorm: 405813 1 Capsule(s) Oral HS at bed time 08/18/19 023 Active pregabalin 100 mg capsule RxNorm: 588023 1 Capsule(s) Oral QAM every morning 08/18/19 023 Active carvedilol 25 mg tablet RxNorm: 655421 1 Tablet(s) Oral QD 07/28/19 023 Inactive lisinopril 20 mg tablet RxNorm: 116131 Give 1 Tablet(s) Oral QD 07/28/19 23 023 Inactive Lyrica 150 mg capsule RxNorm: 009298 Take 1 Capsule(s) Oral QHS every night at bedtime 07/19/19 023 Inactive d/c 100mg dose Diflucan 150 mg tablet RxNorm: 473024 Take 1 Tablet(s) Oral QD repeat on day 3 and 6 07/19/19 023 Inactive pregabalin 100 mg capsule RxNorm: 367777 Take 1 Capsule(s) Oral QAM every morning 07/19/19 23 023 Inactive gatifloxacin 0.5 % eye drops RxNorm: 104698 Instill 1 Drop(s) as directed TID Instill 1 drop in to affected eye(s) starting 1 day prior to surgery and continue until gone (do not exceed 4 weeks). 07/13/19 23 023 Inactive carvedilol 25 mg tablet RxNorm: 369988 2 Tablet(s) Oral BID 07/13/19 023 Inactive Humulin R Regular U-100 Insulin 100 unit/mL injection solution RxNorm: 866545 85 Unit(s) Injection TID 07/13/19 023 Inactive ketorolac 0.5 % eye drops RxNorm: 963456 Instill 1 Drop(s) as directed QID Instill 1 drop into affected eye(s) 4 times daily starting 1 day prior to surgery and continue until gone (do not exceed 4 weeks). 07/13/19 023 Inactive Diflucan 150 mg tablet RxNorm: 458394 Take 1 Tablet(s) Oral QD repeat on day 3 and 6 06/30/19 23 023 Inactive Accu-Chek Guide test strips RxNorm: Use 1 Test Strip QID Use 1 test strip to monitor blood glucose 4 times daily and as needed. Dx:E11.42. 06/23/19 023 Inactive ok to substitute with any covered alternative test strip dextromethorphan-gu aifenesin 10 mg-100 mg/5 mL oral liquid RxNorm: 565070 Take 10 Milliliter(s) Oral every 4 hours as needed for cough 06/19/19 023 Inactive dextromethorphan-gu aifenesin 10 mg-100 mg/5 mL oral liquid RxNorm: 059849 Take 10 Milliliter(s) Oral every 4 hours as needed for cough 06/19/19 23 023 Inactive Lyrica 150 mg capsule RxNorm: 130789 Take 1 Capsule(s) Oral QHS every night at bedtime 06/18/19 23 023 Inactive d/c 100mg dose aripiprazole 15 mg tablet RxNorm: 130105 /2 TAB (7.5MG) ORALLY DAILY (DX:MAJOR DEPRESSIVE DISORDER) 06/05/19 023 Inactive pregabalin 100 mg capsule RxNorm: 987716 1 Capsule(s) Oral QAM every morning 06/02/19 23 023 Inactive Banophen 50 mg capsule RxNorm: 4731016 Take 1 Capsule(s) Oral Q6H every 6 hours as needed 05/19/19 23 No Stop Date Active Novolog Flexpen U-100 Insulin aspart 100 unit/mL (3 mL) subcutaneous RxNorm: 1287205 Inject 10 Unit(s) Subcutaneous QHS every night at bedtime with nighttime snack 04/08/20 022 Inactive Novolog Flexpen U-100 Insulin aspart 100 unit/mL (3 mL) subcutaneous RxNorm: 8886088 Inject 42 Unit(s) Subcutaneous TID in addition to sliding scale 04/08/20 022 Inactive d/c 36u albuterol sulfate HFA 90 mcg/actuation aerosol inhaler RxNorm: 3791419 Take 2 Puff(s) Inhalation Q4H every four hours as needed as needed for SOB, cough, or wheezing 04/07/20 030 Active Banophen 50 mg capsule RxNorm: 1122095 Take 1 Capsule(s) Oral Q6H every 6 hours as needed 04/06/20 023 Inactive diphenhydramine 50 mg tablet RxNorm: 8681113 Take 1 Tablet(s) Oral Q6H every 6 hours as needed 04/06/20 22 022 Inactive diphenhydramine 50 mg tablet RxNorm: 5161114 1 Tablet(s) Oral Q6H every 6 hours as needed 04/06/20 22 022 Inactive Abilify 15 mg tablet RxNorm: 749672 1/2 Tablet(s) Oral QD 03/10/20 22 023 Inactive Shingrix (PF) 50 mcg/0.5 mL intramuscular suspension, kit RxNorm: 0185833 Administer 1/2 Milliliter(s) Intramuscular QD one time shingrix step 2 ( step 1 given 11/04/21) WITH needle - Nursing please administer upon arrival and once administered post a bridge message with date of administration, [facility] laboratory, expiration date, and lot# so we can update [facility] 02/18/20 22 022 Inactive dispense with needle Shingrix (PF) 50 mcg/0.5 mL intramuscular suspension, kit RxNorm: 6888564 Administer 1/2 Milliliter(s) Intramuscular QD one time shingrix step 2 ( step 1 given 11/04/21) WITH needle - Nursing please administer upon arrival and once administered post a bridge message with date of administration, [facility] laboratory, expiration date, and lot# so we can update [facility] 02/18/20 22 022 Inactive dispense with needle acetaminophen 500 mg tablet RxNorm: 371182 Take 1 Tablet(s) Oral TID 01/08/20 023 Active d/c PRN order polyethylene glycol 3350 17 gram/dose oral powder RxNorm: 110443 Take 17=1 capful Gram(s) Oral QD mix with 4-8oz of liquid 01/08/20 22 023 Active take this in addition to BID prn order Lyrica 100 mg capsule RxNorm: 359666 Take 1 Capsule(s) Oral QAM every morning 01/08/20 22 022 Inactive d/c 50mg dose Lyrica 150 mg capsule RxNorm: 942760 Take 1 Capsule(s) Oral QHS every night at bedtime 01/08/20 22 023 Inactive d/c 100mg dose Abilify 5 mg tablet RxNorm: 330409 Take 1 Tablet(s) Oral QD take 1 tab po QD #30 refill 5 dx: MDD 12/12/19 22 022 Inactive Abilify 5 mg tablet RxNorm: 901973 Take 1 Tablet(s) Oral QD take 1 tab po QD #30 refill 5 dx: MDD 12/12/19 22 022 Inactive chlorthalidone 25 mg tablet RxNorm: 314778 Take 1 Tablet(s) Oral QAM every morning 12/10/19 22 023 Active Novolog Flexpen U-100 Insulin aspart 100 unit/mL (3 mL) subcutaneous RxNorm: 1815149 Inject 42 Unit(s) Subcutaneous TID in addition to sliding scale 12/10/19 22 022 Inactive d/c 36u pregabalin 50 mg capsule RxNorm: 186618 Take 1 Capsule(s) Oral QAM every morning 11/12/19 22 Inactive tetanus-diphtheria toxoids-Td 2 Lf unit-2 Lf unit/0.5 mL IM suspension RxNorm: 139 Take 0.5 Miscellaneous Intramuscular 11/12/19 22 Inactive need tdap - nursing to administer upon arrival pregabalin 50 mg capsule RxNorm: 709205 Take 1 Capsule(s) Oral QAM every morning 10/16/19 22 022 Inactive pregabalin 50 mg capsule RxNorm: 313486 Take 1 Capsule(s) Oral QAM every morning 10/16/19 22 022 Inactive pregabalin 50 mg capsule RxNorm: 384970 1 Capsule(s) Oral QAM every morning 10/15/19 22 Inactive Shingrix (PF) 50 mcg/0.5 mL intramuscular suspension, kit RxNorm: 2345399 Administer 1/2 Milliliter(s) Intramuscular one time Nursing please administer upon arrival and once administered post a bridge message with date of administration, [facility] laboratory, 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 10/09/19 22 022 Inactive shingrix step 1 Shingrix (PF) 50 mcg/0.5 mL intramuscular suspension, kit RxNorm: 6090453 Administer 1/2 Milliliter(s) Intramuscular one time Nursing please administer upon arrival and once administered post a bridge message with date of administration, [facility] laboratory, 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 10/09/19 22 022 Inactive shingrix step 1 cholecalciferol (vitamin D3) 1,250 mcg (50,000 unit) capsule RxNorm: 075190 Take 1 Capsule(s) Oral QW once a [...] aspart 100 unit/mL (3 mL) subcutaneous RxNorm: 3306461 Inject 10 Unit(s) Subcutaneous QHS every night at bedtime with nighttime snack 10/08/19 22 Inactive Shingrix (PF) 50 mcg/0.5 mL intramuscular suspension, kit RxNorm: 2155712 ADMINISTER 2-DOSE SERIES PER CDC GUIDELINES 10/08/19 22 Active Shingrix (PF) 50 mcg/0.5 mL intramuscular suspension, kit RxNorm: 1967847 ADMINISTER 2-DOSE SERIES PER CDC GUIDELINES 10/08/19 22 Inactive Novolog Flexpen U-100 Insulin aspart 100 unit/mL (3 mL) subcutaneous RxNorm: 1609812 Inject 36 Unit(s) Subcutaneous TID in addition to sliding scale 10/08/19 22 Inactive Novofine Autocover 30 gauge x 1/3 needle RxNorm: Use 1 Miscellaneous UD as directed Use 1 needle as directed to administer insulin 5 times a day Dx:E11.42. 10/03/19 Inactive ok to substitute with any covered alternative pen needle benzoyl peroxide 10 % topical cleanser RxNorm: 390466 Apply 1 Application Topical QD apply to face, wash rinse and dry once daily (may change to QOD if drying) 08/19/19 22 022 Inactive (%covered by insurance) #60ml refill 11 dx: acne benzoyl peroxide 10 % topical cleanser RxNorm: 803532 Apply 1 Application Topical QD apply to face, wash rinse and dry once daily (may change to QOD if drying) 08/19/19 22 022 Inactive (%covered by insurance) #60ml refill 11 dx: acne benzoyl peroxide 10 % topical cleanser RxNorm: 310996 Apply 1 Application Topical QD apply to face, wash rinse and dry once daily (may change to QOD if drying) 08/19/19 22 022 Inactive (%covered by insurance) #60ml refill 11 dx: acne Lyrica 50 mg capsule RxNorm: 612295 Take 1 Capsule(s) Oral QAM every morning Take 1 capsule by mouth once daily 08/19/19 22 022 Inactive benzoyl peroxide 10 % topical cleanser RxNorm: 214396 Apply 1 Application Topical QD apply to face, wash rinse and dry once daily (may change to QOD if drying) 08/19/19 22 022 Inactive (%covered by insurance) #60ml refill 11 dx: acne Lyrica 100 mg capsule RxNorm: 895647 Take 1 Capsule(s) Oral QHS every night at bedtime Take 1 capsule by mouth once daily at bedtime 08/19/19 22 022 Inactive Lyrica 100 mg capsule RxNorm: 246989 Take 1 Capsule(s) Oral QHS every night at bedtime Take 1 capsule by mouth once daily at bedtime 08/16/19 22 022 Inactive Lyrica 50 mg capsule RxNorm: 723758 Take 1 Capsule(s) Oral QAM every morning Take 1 capsule by mouth once daily 08/16/19 22 022 Inactive Levemir FlexTouch U-100 Insulin 100 unit/mL (3 mL) subcutaneous pen RxNorm: 025709 Inject 86 Unit(s) Subcutaneous BID 08/05/19 22 022 Inactive d/c 83units BID Lyrica 100 mg capsule RxNorm: 016172 Take 1 Capsule(s) Oral QHS every night at bedtime Take 1 capsule by mouth once daily at bedtime 07/14/19 22 022 Inactive Lyrica 50 mg capsule RxNorm: 155778 Take 1 Capsule(s) Oral QAM every morning Take 1 capsule by mouth once daily 07/14/19 22 022 Inactive Levemir FlexTouch U-100 Insulin 100 unit/mL (3 mL) subcutaneous pen RxNorm: 775777 Inject 83 Unit(s) Subcutaneous BID 07/08/19 22 [...] 30 mg tablet,extended release 24 hr RxNorm: 848732 Take 1 Tablet(s) Oral QD 05/05/20 No Stop Date Active hydralazine 50 mg tablet RxNorm: 822303 Take 1 Tablet(s) Oral QID 05/05/20 21 022 Inactive venlafaxine ER 225 mg tablet,extended release 24 hr RxNorm: 810116 Take 1 Tablet(s) Oral QD 05/05/20 21 021 Inactive venlafaxine ER 225 mg tablet,extended release 24 hr RxNorm: 242834 Take 1 Tablet(s) Oral QD 05/05/20 022 Inactive hydralazine 50 mg tablet RxNorm: 140411 Take 1 Tablet(s) Oral QID 05/05/20 21 Inactive aspirin 81 mg tablet,delayed release RxNorm: 615609 Take 1 Tablet(s) Oral QD 03/31/20 Inactive Zetia 10 mg tablet RxNorm: 877382 Take 1 Tablet(s) Oral QD 03/31/20 022 Inactive Vitamin D2 1,250 mcg (50,000 unit) capsule RxNorm: 7004587 Take 1 Capsule(s) Oral QW once a week x 12 weeks 03/31/20 Inactive Vitamin D2 1,250 mcg (50,000 unit) capsule RxNorm: 4632428 Take 1 Capsule(s) Oral QW once a week 03/31/20 Inactive Zetia 10 mg tablet RxNorm: 099800 Take 1 Tablet(s) Oral QD 03/31/20 021 Inactive hydralazine 25 mg tablet RxNorm: 120523 Take 1 Tablet(s) Oral QID 03/31/20 021 Inactive hydralazine 25 mg tablet RxNorm: 472563 Take 1 Tablet(s) Oral QID 03/31/20 021 Inactive hydralazine 10 mg tablet RxNorm: 835487 Take 1 Tablet(s) Oral QID 03/03/20 021 Inactive cephalexin 500 mg tablet RxNorm: 553740 Take 1 Tablet(s) Oral QID 02/27/20 021 Inactive cephalexin 500 mg tablet RxNorm: 058279 Take 1 Tablet(s) Oral QID 02/27/20 021 Inactive lisinopril 40 mg tablet RxNorm: 837795 Take 1 Tablet(s) Oral QD 02/11/20 21 023 Inactive Eliquis 5 mg tablet RxNorm: 1676963 Take 1 Tablet(s) Oral BID 01/05/20 21 022 Inactive Eliquis 5 mg tablet RxNorm: 8556757 Take 2 Tablet(s) Oral QD 01/01/20 21 021 Inactive Lyrica 50 mg capsule RxNorm: 995936 Take 1 Capsule(s) Oral QAM every morning 12/24/19 21 021 Inactive Lyrica 100 mg capsule RxNorm: 789680 Take 1 Capsule(s) Oral QHS every night at bedtime 12/24/19 21 021 Inactive clotrimazole 1 % topical cream RxNorm: 853853 Apply to right foot and toes Topical BID 12/04/19 21 023 Inactive metoprolol succinate ER 200 mg tablet,extended release 24 hr RxNorm: 689238 Take 1 Tablet(s) Oral QD 12/04/19 21 023 Inactive ciprofloxacin 500 mg tablet RxNorm: 123571 Take 1 Tablet(s) Oral QD 11/30/19 21 021 Inactive DX ofloxacin otic drops Accu-Chek Guide test strips RxNorm: USE 1 TO CHECK GLUCOSE 4 TIMES DAILY AND NEEDED 11/15/19 21 023 Inactive Blood Glucose Test strips RxNorm: Use 1 Test Strip QID at PRN 11/05/19 21 023 Inactive E11.42 lisinopril 30 mg tablet RxNorm: 265094 Take 1 Tablet(s) Oral QD 10/30/19 21 021 Inactive lisinopril 20 mg tablet RxNorm: 554913 Take 1 Tablet(s) Oral QD 10/23/19 21 021 Inactive lisinopril 20 mg tablet RxNorm: 284646 Take 1 Tablet(s) Oral QD 10/23/19 21 021 Inactive lisinopril 10 mg tablet RxNorm: 401876 Take 1 Tablet(s) Oral QD 10/02/19 21 021 Inactive icosapent ethyl 1 gram capsule RxNorm: 8708528 Take 2 Capsule(s) (2 gm) Oral BID with meals 09/12/19 21 022 Inactive Okay to dispense one 2gm tab if you have that available. icosapent ethyl 1 gram capsule RxNorm: 1337908 Take 2 Capsule(s) Oral BID 09/12/19 021 Inactive Okay to dispense one 2gm tab if you have that available. amlodipine 10 mg tablet RxNorm: 849682 Take 1 Tablet(s) Oral QD 09/04/19 Inactive aspirin 81 mg tablet,delayed release RxNorm: 044617 Take 1 Tablet(s) Oral QD 09/04/19 Inactive Levemir FlexTouch U-100 Insulin 100 unit/mL (3 mL) subcutaneous pen RxNorm: 281317 Inject 150 Unit(s) Subcutaneous BID 09/04/19 022 Inactive venlafaxine ER 150 mg tablet,extended release 24 hr RxNorm: 362108 Take 1 Tablet(s) Oral QD 09/04/19 Inactive clotrimazole-betame thasone 1 %-0.05 % topical cream RxNorm: 200981 Apply to rash on red area on left abdomen/chest Topical BID 08/10/19 Inactive amlodipine 5 mg tablet RxNorm: 002638 Take 1 Tablet(s) Oral QD 07/31/19 Inactive cephalexin 500 mg tablet RxNorm: 392911 Take 1 Tablet(s) Oral BID BID - Twice Daily 07/31/19 021 Inactive Start 08/01/20 pantoprazole 40 mg tablet,delayed release RxNorm: 816251 Take 1 Tablet(s) Oral QAM every morning 07/08/19 022 Inactive senna 8.6 mg tablet RxNorm: 899456 Take 1 Tablet(s) Oral QD 07/08/19 022 Inactive pravastatin 80 mg tablet RxNorm: 929857 Take 1 Tablet(s) Oral QHS every night at bedtime 07/08/19 022 Inactive carbamazepine 200 mg tablet RxNorm: 018570 Take 1 Tablet(s) Oral BID 07/08/19 022 Inactive clopidogrel 75 mg tablet RxNorm: 536023 Take 1 Tablet(s) Oral QD 07/08/19 021 Inactive Blood Glucose Test strips RxNorm: Use 1 Test Strip QID at PRN 07/08/19 21 021 Inactive E11.42 Novolog Flexpen U-100 Insulin aspart 100 unit/mL (3 mL) subcutaneous RxNorm: 9651890 Administer per sliding scale Milliliter(s) Subcutaneous TID 151-200: 10 u; 201-250: 20 u; 251-300: 30 u; 301-350: 40 u; 351-400: 50 u. 07/08/19 21 022 Inactive lisinopril 5 mg tablet RxNorm: 974172 Take 1 Tablet(s) Oral QD 07/08/19 21 021 Inactive Novolog Flexpen U-100 Insulin aspart 100 unit/mL (3 mL) subcutaneous RxNorm: 2905671 Inject 85 Unit(s) Subcutaneous TID 07/08/19 022 Inactive clotrimazole 1 % topical cream RxNorm: 321655 Apply to bilateral groin areas Topical BID 07/08/19 21 022 Inactive metoprolol succinate ER 200 mg tablet,extended release 24 hr RxNorm: 478482 Take 1 Tablet(s) Oral QD 07/08/19 21 021 Inactive Vitamin D3 25 mcg (1,000 unit) tablet RxNorm: 378570 Take 1 Tablet(s) Oral QD 07/08/19 021 Inactive isosorbide dinitrate 30 mg tablet RxNorm: 038892 Take 1 Tablet(s) Oral QD 07/08/19 21 021 Inactive Levemir FlexTouch U-100 Insulin 100 unit/mL (3 mL) subcutaneous pen RxNorm: 417976 Inject 140 Unit(s) Subcutaneous BID 07/08/19 21 021 Inactive torsemide 20 mg tablet RxNorm: 340867 Take 1 Tablet(s) Oral QD 07/08/19 21 023 Inactive venlafaxine 75 mg tablet RxNorm: 584943 Take 1 Tablet(s) Oral QD 07/08/19 21 021 Inactive acetaminophen 500 mg tablet RxNorm: 948837 Take 1 Tablet(s) Oral TID as needed for headache 06/18/19 21 021 Inactive acetaminophen 500 mg tablet RxNorm: 833914 Take 1 Tablet(s) Oral TID as needed for headache 06/18/19 21 021 Inactive Lyrica 100 mg capsule RxNorm: 591911 Take 1 Capsule(s) Oral QHS every night at bedtime 06/11/19 21 021 Inactive Lyrica 50 mg capsule RxNorm: 363800 Take 1 Capsule(s) Oral QAM every morning 06/10/19 21 021 Inactive hydrocortisone 2.5 % topical cream RxNorm: 152514 Apply to bilateral groin creases Topical BID 05/15/20 20 021 Inactive clotrimazole 1 % topical cream RxNorm: 716556 Apply to bilateral groin areas Topical BID 05/15/20 20 021 Inactive Lyrica 50 mg capsule RxNorm: 173151 Take 1 Capsule(s) Oral QAM every morning 05/14/20 20 020 Inactive Lyrica 100 mg capsule RxNorm: 771830 Take 1 Capsule(s) Oral QHS every night [...] Inactive Nystop 100,000 unit/gram topical powder RxNorm: 435551 Apply to abd folds, under breasts and L side of groin Topical BID x 14 days, then BID PRN 04/08/20 20 021 Inactive dx: yeast dermatitis Lyrica 100 mg capsule RxNorm: 750292 Take 1 Capsule(s) Oral QHS every night at bedtime 03/13/20 20 Inactive Lyrica 50 mg capsule RxNorm: 734154 Take 1 Capsule(s) Oral QAM every morning 03/13/20 20 Inactive ketoconazole 2 % shampoo RxNorm: 095894 Apply Topical two times a week with showers 03/11/20 Inactive cholecalciferol (vitamin D3) 50 mcg (2,000 unit) tablet RxNorm: 005728 Take 1 Tablet(s) Oral QD 03/11/20 20 Inactive Zetia 10 mg tablet RxNorm: 422619 Take 1 Tablet(s) Oral QD 03/07/20 Inactive Zetia 10 mg tablet RxNorm: 001461 Take 1 Tablet(s) Oral QD 03/07/20 20 Inactive Lyrica 50 mg capsule RxNorm: 252149 Take 1 Capsule(s) Oral QAM every morning 02/15/20 20 Inactive Lyrica 100 mg capsule RxNorm: 595166 Take 1 Capsule(s) Oral QHS every night at bedtime 02/15/20 Inactive Lyrica 100 mg capsule RxNorm: 118527 Take 1 Capsule(s) Oral QHS every night at bedtime 02/15/20 20 Inactive Lyrica 50 mg capsule RxNorm: 402118 Take 1 Capsule(s) Oral QAM every morning 02/15/20 20 Inactive venlafaxine ER 75 mg capsule,extended release 24 hr RxNorm: 956883 Take 3 Capsule(s) Oral QD 06/12/19 Active polyethylene glycol 3350 17 gram/dose oral powder RxNorm: 409322 Take 17=1 capful Gram(s) Oral BID as needed mix with 4-8oz of liquid 06/12/19 Active metoprolol succinate ER 200 mg tablet,extended release 24 hr RxNorm: 032900 Take 1 Tablet(s) Oral QD 08/12/19 Active loperamide 2 mg capsule RxNorm: 102024 Take 1 Capsule(s) Oral QID as needed 06/12/19 Active hydralazine 50 mg tablet RxNorm: 323617 Take 1 Tablet(s) Oral QID 08/12/19 Active icosapent ethyl 1 gram capsule RxNorm: 0827351 Take 2 Capsule(s) (2 gm) Oral BID with meals 10/07/19 23 023 Inactive Okay to dispense one 2gm tab if you have that available. Levemir FlexTouch U-100 Insulin 100 unit/mL (3 mL) subcutaneous pen RxNorm: 075289 Inject 80 Unit(s) Subcutaneous BID 07/14/19 23 023 Inactive Novolog Flexpen U-100 Insulin aspart 100 unit/mL (3 mL) subcutaneous RxNorm: 9316182 Insert 30 Unit(s) Subcutaneous TID with meals [...] Date Referral: [facility] WPtel: [phone], [address] [id number] [place] Referral Records Received 09/21/2022 Referral: [facility] WPtel: [phone] [id number] [place] Referral Completed 05/28/2021 Referral: General Cardiology [...] attention.??Sister Jyotsna involved in his care cell# [phone]??Guardian: Don (tapan met in person 09/01/21), now has Lexii (same group as don)Lab Schedule: * 10/06/2022
--- OUTSIDE RECORDS SUMMARY | 2022-11-09 23:42 | XMS_ITS | CCD ---
Author Name Unknown Organization Unknown Care Team Providers Care Java Project Manager Name Role Phone Tapan Shirley PA-C Primary Care Provider Unavailabl e Tapan Shirley PA-C Chronic Care Management Unavaila ble Summary Purpose DataExchange Insurance Providers Payer name Policy type / Coverage type Covered alliance party ID Effective Begin Date Effective End Date Medicare [place] Medicare Part B [id number] Unknown Unknown Medicaid [place] Medicare Part B [id number] Unknown Unknown Family history Sister Brittany Suggs Diagnosis Age At Onset No Family Disease Entered N/A Runs in the family Diagnosis Age At Onset No Known Diseases N/A Sister Blanka Mcduffie Diagnosis Age At Onset No Family Disease Entered N/A Social History Social History Element Codes Description Effec tive Dates Marital status Unknown Single 10/07/2021 Living arrangements Unknown Usp 09/03/[address]: 2956645 Non-Smoker / No History of Smoking 09/02/[address]: 012449210 No Alcohol Consum ption 09/02/2020 Allergies, Adverse Reactions, Alerts Substance Reaction Codes Entered Date Inactivated Date Status LISINOPRIL RxNorm: 81233 02/12/2020 No Inactive Da te Active Metformin [...] 08/11/2022 Active Coronary artery disease invo lving kaibab coronary artery of kaibab heart, angina presence unspecified ICD-10: I25.10 ICD-9: [...] ICD-10: Z23 ICD-9: V03.89 02/10/2022 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 ICD-10: Z79.4 02/10 [...] (3 mL) solution subcutaneous insulin pen RxNorm: 668469 Inject 30 Unit(s) Subcutaneous BID 10/07/19 024 Active Humulin R U-500 (Concentrated) Insulin 500 unit/mL subcutaneous soln RxNorm: 668338 Inject 100 Unit(s) Subcutaneous TID 10/07/19 024 Active Ozempic 0.25 mg or 0.5 mg (2 mg/3 mL) subcutaneous pen injector RxNorm: 7922257 Inject 1/2 Milligram(s) Subcutaneous QW once a week 10/07/19 024 Active aripiprazole 15 mg tablet RxNorm: 123371 1/2 TAB (7.5MG) ORALLY DAILY (DX:MAJOR DEPRESSIVE DISORDER) 09/23/19 23 023 Active Accu-Chek Guide test strips RxNorm: Use 1 Test Strip QID 09/15/19 23 024 Active ok to substitute with any covered alternative test strip Lancets,Thin 28 gauge RxNorm: Use 1 as directed QID 09/15/19 23 024 Active torsemide 20 mg tablet RxNorm: 045989 Take 1 Tablet(s) Oral BID 09/09/19 23 024 Active d/c once daily dosing carvedilol 25 mg tablet RxNorm: 903022 Take 1 Tablet(s) Oral QD 08/25/19 23 024 Active pregabalin 150 mg capsule RxNorm: 663380 1 Capsule(s) Oral HS at bed time 08/18/19 23 023 Active pregabalin 100 mg capsule RxNorm: 998208 1 Capsule(s) Oral QAM every morning 08/18/19 23 023 Active carvedilol 25 mg tablet RxNorm: 221817 1 Tablet(s) Oral QD 07/28/19 23 023 Inactive lisinopril 20 mg tablet RxNorm: 727205 Give 1 Tablet(s) Oral QD 07/28/19 23 023 Inactive Lyrica 150 mg capsule RxNorm: 187329 Take 1 Capsule(s) Oral QHS every night at bedtime 07/19/19 023 Inactive d/c 100mg dose Diflucan 150 mg tablet RxNorm: 259455 Take 1 Tablet(s) Oral QD repeat on day 3 and 6 07/19/19 23 023 Inactive pregabalin 100 mg capsule RxNorm: 295523 Take 1 Capsule(s) Oral QAM every morning 07/19/19 23 023 Inactive gatifloxacin 0.5 % eye drops RxNorm: 123177 Instill 1 Drop(s) as directed TID Instill 1 drop in to affected eye(s) starting 1 day prior to surgery and continue until gone (do not exceed 4 weeks). 07/13/19 23 023 Inactive carvedilol 25 mg tablet RxNorm: 051551 2 Tablet(s) Oral BID 07/13/19 23 023 Inactive Humulin R Regular U-100 Insulin 100 unit/mL injection solution RxNorm: 979035 85 Unit(s) Injection TID 07/13/19 23 023 Inactive ketorolac 0.5 % eye drops RxNorm: 784096 Instill 1 Drop(s) as directed QID Instill 1 drop into affected eye(s) 4 times daily starting 1 day prior to surgery and continue until gone (do not exceed 4 weeks). 07/13/19 23 023 Inactive Diflucan 150 mg tablet RxNorm: 317419 Take 1 Tablet(s) Oral QD repeat on day 3 and 6 06/30/19 023 Inactive Accu-Chek Guide test strips RxNorm: Use 1 Test Strip QID Use 1 test strip to monitor blood glucose 4 times daily and as needed. Dx:E11.42. 06/23/19 23 023 Inactive ok to substitute with any covered alternative test strip dextromethorphan-gu aifenesin 10 mg-100 mg/5 mL oral liquid RxNorm: 640087 Take 10 Milliliter(s) Oral every 4 hours as needed for cough 06/19/19 023 Inactive dextromethorphan-gu aifenesin 10 mg-100 mg/5 mL oral liquid RxNorm: 568897 Take 10 Milliliter(s) Oral every 4 hours as needed for cough 06/19/19 023 Inactive Lyrica 150 mg capsule RxNorm: 394712 Take 1 Capsule(s) Oral QHS every night at bedtime 06/18/19 023 Inactive d/c 100mg dose aripiprazole 15 mg tablet RxNorm: 879011 /2 TAB (7.5MG) ORALLY DAILY (DX:MAJOR DEPRESSIVE DISORDER) 06/05/19 23 023 Inactive pregabalin 100 mg capsule RxNorm: 397095 1 Capsule(s) Oral QAM every morning 06/02/19 23 023 Inactive Banophen 50 mg capsule RxNorm: 0953880 Take 1 Capsule(s) Oral Q6H every 6 hours as needed 05/19/19 No Stop Date Active Novolog Flexpen U-100 Insulin aspart 100 unit/mL (3 mL) subcutaneous RxNorm: 9900950 Inject 10 Unit(s) Subcutaneous QHS every night at bedtime with nighttime snack 04/08/20 Inactive Novolog Flexpen U-100 Insulin aspart 100 unit/mL (3 mL) subcutaneous RxNorm: 3466531 Inject 42 Unit(s) Subcutaneous TID in addition to sliding scale 04/08/20 Inactive d/c 36u albuterol sulfate HFA 90 mcg/actuation aerosol inhaler RxNorm: 6469818 Take 2 Puff(s) Inhalation Q4H every four hours as needed as needed for SOB, cough, or wheezing 04/07/20 030 Active Banophen 50 mg capsule RxNorm: 7268763 Take 1 Capsule(s) Oral Q6H every 6 hours as needed 04/06/20 023 Inactive diphenhydramine 50 mg tablet RxNorm: 1909288 Take 1 Tablet(s) Oral Q6H every 6 hours as needed 04/06/20 022 Inactive diphenhydramine 50 mg tablet RxNorm: 7878884 1 Tablet(s) Oral Q6H every 6 hours as needed 04/06/20 022 Inactive Abilify 15 mg tablet RxNorm: 403750 1/2 Tablet(s) Oral QD 03/10/20 023 Inactive Shingrix (PF) 50 mcg/0.5 mL intramuscular suspension, kit RxNorm: 6953615 Administer 1/2 Milliliter(s) Intramuscular QD one time shingrix step 2 ( step 1 given 11/04/21) WITH needle - Nursing please administer upon arrival and once administered post a bridge message with date of administration, hall supervisor, expiration date, and lot# so we can update [facility] 02/18/20 022 Inactive dispense with needle Shingrix (PF) 50 mcg/0.5 mL intramuscular suspension, kit RxNorm: 9305297 Administer 1/2 Milliliter(s) Intramuscular QD one time shingrix step 2 ( step 1 given 11/04/21) WITH needle - Nursing please administer upon arrival and once administered post a bridge message with date of administration, hall supervisor, expiration date, and lot# so we can update [facility] 02/18/20 22 Inactive dispense with needle acetaminophen 500 mg tablet RxNorm: 438358 Take 1 Tablet(s) Oral TID 01/08/20 22 023 Active d/c PRN order polyethylene glycol 3350 17 gram/dose oral powder RxNorm: 573830 Take 17=1 capful Gram(s) Oral QD mix with 4-8oz of liquid 01/08/20 22 023 Active take this in addition to BID prn order Lyrica 100 mg capsule RxNorm: 179583 Take 1 Capsule(s) Oral QAM every morning 01/08/20 22 022 Inactive d/c 50mg dose Lyrica 150 mg capsule RxNorm: 266562 Take 1 Capsule(s) Oral QHS every night at bedtime 01/08/20 22 023 Inactive d/c 100mg dose Abilify 5 mg tablet RxNorm: 942481 Take 1 Tablet(s) Oral QD take 1 tab po QD #30 refill 5 dx: MDD 12/12/19 22 022 Inactive Abilify 5 mg tablet RxNorm: 135567 Take 1 Tablet(s) Oral QD take 1 tab po QD #30 refill 5 dx: MDD 12/12/19 22 022 Inactive chlorthalidone 25 mg tablet RxNorm: 775391 Take 1 Tablet(s) Oral QAM every morning 12/10/19 22 023 Active Novolog Flexpen U-100 Insulin aspart 100 unit/mL (3 mL) subcutaneous RxNorm: 9613448 Inject 42 Unit(s) Subcutaneous TID in addition to sliding scale 12/10/19 22 022 Inactive d/c 36u pregabalin 50 mg capsule RxNorm: 178804 Take 1 Capsule(s) Oral QAM every morning 11/12/19 22 022 Inactive tetanus-diphtheria toxoids-Td 2 Lf unit-2 Lf unit/0.5 mL IM suspension RxNorm: 139 Take 0.5 Miscellaneous Intramuscular 11/12/19 022 Inactive need tdap - nursing to administer upon arrival pregabalin 50 mg capsule RxNorm: 970426 Take 1 Capsule(s) Oral QAM every morning 10/16/19 22 022 Inactive pregabalin 50 mg capsule RxNorm: 165921 Take 1 Capsule(s) Oral QAM every morning 10/16/19 22 022 Inactive pregabalin 50 mg capsule RxNorm: 762517 1 Capsule(s) Oral QAM every morning 10/15/19 22 022 Inactive Shingrix (PF) 50 mcg/0.5 mL intramuscular suspension, kit RxNorm: 1332484 Administer 1/2 Milliliter(s) Intramuscular one time Nursing please administer upon arrival and once administered post a bridge message with date of administration, hall 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 10/09/19 22 022 Inactive shingrix step 1 Shingrix (PF) 50 mcg/0.5 mL intramuscular suspension, kit RxNorm: 4865165 Administer 1/2 Milliliter(s) Intramuscular one time Nursing please administer upon arrival and once administered post a bridge message with date of administration, hall 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 10/09/19 22 022 Inactive shingrix step 1 cholecalciferol (vitamin D3) 1,250 mcg (50,000 unit) capsule RxNorm: 044020 Take 1 Capsule(s) Oral QW once a [...] aspart 100 unit/mL (3 mL) subcutaneous RxNorm: 7296936 Inject 10 Unit(s) Subcutaneous QHS every night at bedtime with nighttime snack 10/08/19 22 Inactive Shingrix (PF) 50 mcg/0.5 mL intramuscular suspension, kit RxNorm: 8666625 ADMINISTER 2-DOSE SERIES PER CDC GUIDELINES 10/08/19 22 Active Shingrix (PF) 50 mcg/0.5 mL intramuscular suspension, kit RxNorm: 9225755 ADMINISTER 2-DOSE SERIES PER CDC GUIDELINES 10/08/19 22 Inactive Novolog Flexpen U-100 Insulin aspart 100 unit/mL (3 mL) subcutaneous RxNorm: 4483717 Inject 36 Unit(s) Subcutaneous TID in addition to sliding scale 10/08/19 Inactive Novofine Autocover 30 gauge x 1/3 needle RxNorm: Use 1 Miscellaneous UD as directed Use 1 needle as directed to administer insulin 5 times a day Dx:E11.42. 10/03/19 Inactive ok to substitute with any covered alternative pen needle benzoyl peroxide 10 % topical cleanser RxNorm: 573047 Apply 1 Application Topical QD apply to face, wash rinse and dry once daily (may change to QOD if drying) 08/19/19 022 Inactive (%covered by insurance) #60ml refill 11 dx: acne benzoyl peroxide 10 % topical cleanser RxNorm: 776600 Apply 1 Application Topical QD apply to face, wash rinse and dry once daily (may change to QOD if drying) 08/19/19 22 022 Inactive (%covered by insurance) #60ml refill 11 dx: acne benzoyl peroxide 10 % topical cleanser RxNorm: 027613 Apply 1 Application Topical QD apply to face, wash rinse and dry once daily (may change to QOD if drying) 08/19/19 22 022 Inactive (%covered by insurance) #60ml refill 11 dx: acne Lyrica 50 mg capsule RxNorm: 222296 Take 1 Capsule(s) Oral QAM every morning Take 1 capsule by mouth once daily 08/19/19 22 022 Inactive benzoyl peroxide 10 % topical cleanser RxNorm: 720330 Apply 1 Application Topical QD apply to face, wash rinse and dry once daily (may change to QOD if drying) 08/19/19 22 022 Inactive (%covered by insurance) #60ml refill 11 dx: acne Lyrica 100 mg capsule RxNorm: 085768 Take 1 Capsule(s) Oral QHS every night at bedtime Take 1 capsule by mouth once daily at bedtime 08/19/19 22 022 Inactive Lyrica 100 mg capsule RxNorm: 659371 Take 1 Capsule(s) Oral QHS every night at bedtime Take 1 capsule by mouth once daily at bedtime 08/16/19 22 022 Inactive Lyrica 50 mg capsule RxNorm: 998694 Take 1 Capsule(s) Oral QAM every morning Take 1 capsule by mouth once daily 08/16/19 22 022 Inactive Levemir FlexTouch U-100 Insulin 100 unit/mL (3 mL) subcutaneous pen RxNorm: 060477 Inject 86 Unit(s) Subcutaneous BID 08/05/19 22 022 Inactive d/c 83units BID Lyrica 100 mg capsule RxNorm: 614178 Take 1 Capsule(s) Oral QHS every night at bedtime Take 1 capsule by mouth once daily at bedtime 07/14/19 22 022 Inactive Lyrica 50 mg capsule RxNorm: 639018 Take 1 Capsule(s) Oral QAM every morning Take 1 capsule by mouth once daily 07/14/19 22 022 Inactive Levemir FlexTouch U-100 Insulin 100 unit/mL (3 mL) subcutaneous pen RxNorm: 194682 Inject 83 Unit(s) Subcutaneous BID 07/08/19 22 [...] 30 mg tablet,extended release 24 hr RxNorm: 016368 Take 1 Tablet(s) Oral QD 05/05/20 No Stop Date Active hydralazine 50 mg tablet RxNorm: 380499 Take 1 Tablet(s) Oral QID 05/05/20 21 022 Inactive venlafaxine ER 225 mg tablet,extended release 24 hr RxNorm: 536948 Take 1 Tablet(s) Oral QD 05/05/20 21 Inactive venlafaxine ER 225 mg tablet,extended release 24 hr RxNorm: 459575 Take 1 Tablet(s) Oral QD 05/05/20 21 022 Inactive hydralazine 50 mg tablet RxNorm: 376368 Take 1 Tablet(s) Oral QID 05/05/20 21 021 Inactive aspirin 81 mg tablet,delayed release RxNorm: 159793 Take 1 Tablet(s) Oral QD 03/31/20 21 022 Inactive Zetia 10 mg tablet RxNorm: 543402 Take 1 Tablet(s) Oral QD 03/31/20 Inactive Vitamin D2 1,250 mcg (50,000 unit) capsule RxNorm: 0132854 Take 1 Capsule(s) Oral QW once a week x 12 weeks 03/31/20 Inactive Vitamin D2 1,250 mcg (50,000 unit) capsule RxNorm: 5755562 Take 1 Capsule(s) Oral QW once a week 03/31/20 Inactive Zetia 10 mg tablet RxNorm: 253212 Take 1 Tablet(s) Oral QD 03/31/20 Inactive hydralazine 25 mg tablet RxNorm: 064250 Take 1 Tablet(s) Oral QID 03/31/20 Inactive hydralazine 25 mg tablet RxNorm: 811818 Take 1 Tablet(s) Oral QID 03/31/20 Inactive hydralazine 10 mg tablet RxNorm: 701588 Take 1 Tablet(s) Oral QID 03/03/20 021 Inactive cephalexin 500 mg tablet RxNorm: 911945 Take 1 Tablet(s) Oral QID 02/27/20 021 Inactive cephalexin 500 mg tablet RxNorm: 345723 Take 1 Tablet(s) Oral QID 02/27/20 Inactive lisinopril 40 mg tablet RxNorm: 226740 Take 1 Tablet(s) Oral QD 02/11/20 023 Inactive Eliquis 5 mg tablet RxNorm: 7324070 Take 1 Tablet(s) Oral BID 01/05/20 022 Inactive Eliquis 5 mg tablet RxNorm: 6493153 Take 2 Tablet(s) Oral QD 01/01/20 021 Inactive Lyrica 50 mg capsule RxNorm: 933744 Take 1 Capsule(s) Oral QAM every morning 12/24/19 021 Inactive Lyrica 100 mg capsule RxNorm: 014785 Take 1 Capsule(s) Oral QHS every night at bedtime 12/24/19 021 Inactive clotrimazole 1 % topical cream RxNorm: 048471 Apply to right foot and toes Topical BID 12/04/19 21 023 Inactive metoprolol succinate ER 200 mg tablet,extended release 24 hr RxNorm: 875684 Take 1 Tablet(s) Oral QD 12/04/19 023 Inactive ciprofloxacin 500 mg tablet RxNorm: 260298 Take 1 Tablet(s) Oral QD 11/30/19 021 Inactive DX ofloxacin otic drops Accu-Chek Guide test strips RxNorm: USE 1 TO CHECK GLUCOSE 4 TIMES DAILY AND NEEDED 11/15/19 21 023 Inactive Blood Glucose Test strips RxNorm: Use 1 Test Strip QID at PRN 11/05/19 023 Inactive E11.42 lisinopril 30 mg tablet RxNorm: 207028 Take 1 Tablet(s) Oral QD 10/30/19 021 Inactive lisinopril 20 mg tablet RxNorm: 708418 Take 1 Tablet(s) Oral QD 10/23/19 021 Inactive lisinopril 20 mg tablet RxNorm: 851422 Take 1 Tablet(s) Oral QD 10/23/19 021 Inactive lisinopril 10 mg tablet RxNorm: 005769 Take 1 Tablet(s) Oral QD 10/02/19 021 Inactive icosapent ethyl 1 gram capsule RxNorm: 5378729 Take 2 Capsule(s) (2 gm) Oral BID with meals 09/12/19 022 Inactive Okay to dispense one 2gm tab if you have that available. icosapent ethyl 1 gram capsule RxNorm: 8336772 Take 2 Capsule(s) Oral BID 09/12/19 021 Inactive Okay to dispense one 2gm tab if you have that available. amlodipine 10 mg tablet RxNorm: 785747 Take 1 Tablet(s) Oral QD 09/04/19 21 022 Inactive aspirin 81 mg tablet,delayed release RxNorm: 786207 Take 1 Tablet(s) Oral QD 09/04/19 21 08/16/2 021 Inactive Levemir FlexTouch U-100 Insulin 100 unit/mL (3 mL) subcutaneous pen RxNorm: 199877 Inject 150 Unit(s) Subcutaneous BID 09/04/19 Inactive venlafaxine ER 150 mg tablet,extended release 24 hr RxNorm: 310621 Take 1 Tablet(s) Oral QD 09/04/19 Inactive clotrimazole-betame thasone 1 %-0.05 % topical cream RxNorm: 710467 Apply to rash on red area on left abdomen/chest Topical BID 08/10/19 Inactive amlodipine 5 mg tablet RxNorm: 390765 Take 1 Tablet(s) Oral QD 07/31/19 Inactive cephalexin 500 mg tablet RxNorm: 039233 Take 1 Tablet(s) Oral BID BID - Twice Daily 07/31/19 Inactive Start 08/01/20 pantoprazole 40 mg tablet,delayed release RxNorm: 569287 Take 1 Tablet(s) Oral QAM every morning 07/08/19 Inactive senna 8.6 mg tablet RxNorm: 739288 Take 1 Tablet(s) Oral QD 07/08/19 Inactive pravastatin 80 mg tablet RxNorm: 024024 Take 1 Tablet(s) Oral QHS every night at bedtime 07/08/19 Inactive carbamazepine 200 mg tablet RxNorm: 218488 Take 1 Tablet(s) Oral BID 07/08/19 Inactive clopidogrel 75 mg tablet RxNorm: 752185 Take 1 Tablet(s) Oral QD 07/08/19 Inactive Blood Glucose Test strips RxNorm: Use 1 Test Strip QID at PRN 07/08/19 Inactive E11.42 Novolog Flexpen U-100 Insulin aspart 100 unit/mL (3 mL) subcutaneous RxNorm: 5055577 Administer per sliding scale Milliliter(s) Subcutaneous TID 151-200: 10 u; 201-250: 20 u; 251-300: 30 u; 301-350: 40 u; 351-400: 50 u. 07/08/1906 06/26/2 022 Inactive lisinopril 5 mg tablet RxNorm: 623735 Take 1 Tablet(s) Oral QD 07/08/19 21 021 Inactive Novolog Flexpen U-100 Insulin aspart 100 unit/mL (3 mL) subcutaneous RxNorm: 0456258 Inject 85 Unit(s) Subcutaneous TID 07/08/19 21 022 Inactive clotrimazole 1 % topical cream RxNorm: 361674 Apply to bilateral groin areas Topical BID 07/08/19 21 022 Inactive metoprolol succinate ER 200 mg tablet,extended release 24 hr RxNorm: 621982 Take 1 Tablet(s) Oral QD 07/08/19 21 021 Inactive Vitamin D3 25 mcg (1,000 unit) tablet RxNorm: 106207 Take 1 Tablet(s) Oral QD 07/08/19 021 Inactive isosorbide dinitrate 30 mg tablet RxNorm: 905746 Take 1 Tablet(s) Oral QD 07/08/19 21 021 Inactive Levemir FlexTouch U-100 Insulin 100 unit/mL (3 mL) subcutaneous pen RxNorm: 408805 Inject 140 Unit(s) Subcutaneous BID 07/08/19 21 021 Inactive torsemide 20 mg tablet RxNorm: 115518 Take 1 Tablet(s) Oral QD 07/08/19 21 023 Inactive venlafaxine 75 mg tablet RxNorm: 282344 Take 1 Tablet(s) Oral QD 07/08/19 021 Inactive acetaminophen 500 mg tablet RxNorm: 570280 Take 1 Tablet(s) Oral TID as needed for headache 06/18/19 21 021 Inactive acetaminophen 500 mg tablet RxNorm: 033296 Take 1 Tablet(s) Oral TID as needed for headache 06/18/19 21 021 Inactive Lyrica 100 mg capsule RxNorm: 716250 Take 1 Capsule(s) Oral QHS every night at bedtime 06/11/19 21 021 Inactive Lyrica 50 mg capsule RxNorm: 686866 Take 1 Capsule(s) Oral QAM every morning 06/10/19 21 Inactive hydrocortisone 2.5 % topical cream RxNorm: 668791 Apply to bilateral groin creases Topical BID 05/15/20 20 021 Inactive clotrimazole 1 % topical cream RxNorm: 561273 Apply to bilateral groin areas Topical BID 05/15/20 20 021 Inactive Lyrica 50 mg capsule RxNorm: 978084 Take 1 Capsule(s) Oral QAM every morning 05/14/20 20 020 Inactive Lyrica 100 mg capsule RxNorm: 988825 Take 1 Capsule(s) Oral QHS every night [...] Inactive Nystop 100,000 unit/gram topical powder RxNorm: 745048 Apply to abd folds, under breasts and L side of groin Topical BID x 14 days, then BID PRN 04/08/20 20 021 Inactive dx: yeast dermatitis Lyrica 100 mg capsule RxNorm: 023559 Take 1 Capsule(s) Oral QHS every night at bedtime 03/13/20 20 020 Inactive Lyrica 50 mg capsule RxNorm: 803577 Take 1 Capsule(s) Oral QAM every morning 03/13/20 20 020 Inactive ketoconazole 2 % shampoo RxNorm: 017792 Apply Topical two times a week with showers 03/11/20 Inactive cholecalciferol (vitamin D3) 50 mcg (2,000 unit) tablet RxNorm: 646813 Take 1 Tablet(s) Oral QD 03/11/20 Inactive Zetia 10 mg tablet RxNorm: 016301 Take 1 Tablet(s) Oral QD 03/07/20 Inactive Zetia 10 mg tablet RxNorm: 213165 Take 1 Tablet(s) Oral QD 03/07/20 Inactive Lyrica 50 mg capsule RxNorm: 401522 Take 1 Capsule(s) Oral QAM every morning 02/15/20 Inactive Lyrica 100 mg capsule RxNorm: 823794 Take 1 Capsule(s) Oral QHS every night at bedtime 02/15/20 Inactive Lyrica 100 mg capsule RxNorm: 190662 Take 1 Capsule(s) Oral QHS every night at bedtime 02/15/20 Inactive Lyrica 50 mg capsule RxNorm: 179030 Take 1 Capsule(s) Oral QAM every morning 02/15/20 Inactive venlafaxine ER 75 mg capsule,extended release 24 hr RxNorm: 162343 Take 3 Capsule(s) Oral QD 06/12/19 Active polyethylene glycol 3350 17 gram/dose oral powder RxNorm: 156269 Take 17=1 capful Gram(s) Oral BID as needed mix with 4-8oz of liquid 06/12/19 Active metoprolol succinate ER 200 mg tablet,extended release 24 hr RxNorm: 677921 Take 1 Tablet(s) Oral QD 08/12/19 23 Active loperamide 2 mg capsule RxNorm: 218808 Take 1 Capsule(s) Oral QID as needed 06/12/19 22 Active hydralazine 50 mg tablet RxNorm: 254195 Take 1 Tablet(s) Oral QID 08/12/19 23 Active icosapent ethyl 1 gram capsule RxNorm: 9483045 Take 2 Capsule(s) (2 gm) Oral BID with meals 10/07/19 23 023 Inactive Okay to dispense one 2gm tab if you have that available. Levemir FlexTouch U-100 Insulin 100 unit/mL (3 mL) subcutaneous pen RxNorm: 167035 Inject 80 Unit(s) Subcutaneous BID 07/14/19 23 023 Inactive Novolog Flexpen U-100 Insulin aspart 100 unit/mL (3 mL) subcutaneous RxNorm: 0157068 Insert 30 Unit(s) Subcutaneous TID with meals [...] of [facility] WPtel: [address] [id number] [place] Referral Records Received 09/21/2022 Referral: [facility] [address]: [address] [id number] [place] Referral Completed 05/28/2021 Referral: General Cardiology Referral Complet ed 01/03/2021 Referral: General Psychologist Referral Close d Instructions Comment Date Leonid is a?? Male being seen living at [facility]. Initial BPS visit 01/2020. PMHx including DMII, CAD w/ 5 stents, Depression, Seizure Disorder and CKD stage 3. He moved into [facility] in 12/2019 but after a hospitalization 05/2021 he moved to the [facility] to have closer nursing attention.??Sister Jyotsna involved in his care cell# [phone]??Guardian: Don (tapan met in person 09/01/21), now has Lexii (same group as don)Lab Schedule: * 10/06/2022
--- OUTSIDE RECORDS SUMMARY | 2022-11-09 23:42 | XMS_ITS | CCD ---
Author Name Tapan Shirley PA-C Address [address] [place] [address] Phone Organization [facility] Phone Care Team Providers Care Store Administrative Assistant Name Role Phone Tapan Shirley PA-C Primary Care Provider Unavailabl e Tapan Shirley PA-C Chronic Care Management Unavaila ble Summary Purpose DataExchange Insurance Providers Payer name Policy type / Coverage type Covered green party ID Effective Begin Date Effective End Date [place] Part B [id number] Unknown Unknown [place] B [id number] Unknown Unknown Family history Sister Brittany Suggs [...] Prison 09/03/[address]: 8736616 Non-Smoker / No History of Smoking 09/02/[address]: 194387003 No Alcohol Consum ption 09/02/2020 Allergies, Adverse Reactions, Alerts Substance Reaction Codes Entered Date Inactivated Date Status LISINOPRIL RxNorm: 60015 02/12/2020 No Inactive Da te Active Metformin [...] 08/11/2022 Active Coronary artery disease invo lving [place] coronary artery of [place] heart, angina presence unspecified ICD-10: I25.10 ICD-9: [...] ICD-10: Z23 ICD-9: V03.89 02/10/2022 Resolved buttermaker (current) use of insulin ICD-10: Z79.4 [...] (3 mL) solution subcutaneous insulin pen RxNorm: 970542 Inject 30 Unit(s) Subcutaneous BID 10/07/19 23 024 Active Humulin R U-500 (Concentrated) Insulin 500 unit/mL subcutaneous soln RxNorm: 908920 Inject 100 Unit(s) Subcutaneous TID 10/07/19 23 024 Active Ozempic 0.25 mg or 0.5 mg (2 mg/3 mL) subcutaneous pen injector RxNorm: 8372491 Inject 1/2 Milligram(s) Subcutaneous QW once a week 10/07/19 23 024 Active aripiprazole 15 mg tablet RxNorm: 663838 /2 TAB (7.5MG) ORALLY DAILY (DX:MAJOR DEPRESSIVE DISORDER) 09/23/19 23 023 Active Accu-Chek Guide test strips RxNorm: Use 1 Test Strip QID 09/15/19 23 024 Active ok to substitute with any covered alternative test strip Lancets,Thin 28 gauge RxNorm: Use 1 as directed QID 09/15/19 23 024 Active torsemide 20 mg tablet RxNorm: 427682 Take 1 Tablet(s) Oral BID 09/09/19 024 Active d/c once daily dosing carvedilol 25 mg tablet RxNorm: 253310 Take 1 Tablet(s) Oral QD 08/25/19 024 Active pregabalin 150 mg capsule RxNorm: 940842 1 Capsule(s) Oral HS at bed time 08/18/19 23 023 Active pregabalin 100 mg capsule RxNorm: 914977 1 Capsule(s) Oral QAM every morning 08/18/19 23 023 Active carvedilol 25 mg tablet RxNorm: 696883 1 Tablet(s) Oral QD 07/28/19 23 023 Inactive lisinopril 20 mg tablet RxNorm: 240207 Give 1 Tablet(s) Oral QD 07/28/19 23 023 Inactive Lyrica 150 mg capsule RxNorm: 646819 Take 1 Capsule(s) Oral QHS every night at bedtime 07/19/19 023 Inactive d/c 100mg dose Diflucan 150 mg tablet RxNorm: 270763 Take 1 Tablet(s) Oral QD repeat on day 3 and 6 07/19/19 23 023 Inactive pregabalin 100 mg capsule RxNorm: 200420 Take 1 Capsule(s) Oral QAM every morning 07/19/19 23 023 Inactive gatifloxacin 0.5 % eye drops RxNorm: 555014 Instill 1 Drop(s) as directed TID Instill 1 drop in to affected eye(s) starting 1 day prior to surgery and continue until gone (do not exceed 4 weeks). 07/13/19 23 023 Inactive carvedilol 25 mg tablet RxNorm: 305081 2 Tablet(s) Oral BID 07/13/19 23 023 Inactive Humulin R Regular U-100 Insulin 100 unit/mL injection solution RxNorm: 809097 85 Unit(s) Injection TID 07/13/19 23 023 Inactive ketorolac 0.5 % eye drops RxNorm: 060470 Instill 1 Drop(s) as directed QID Instill 1 drop into affected eye(s) 4 times daily starting 1 day prior to surgery and continue until gone (do not exceed 4 weeks). 07/13/19 23 023 Inactive Diflucan 150 mg tablet RxNorm: 683497 Take 1 Tablet(s) Oral QD repeat on day 3 and 6 06/30/19 23 023 Inactive Accu-Chek Guide test strips RxNorm: Use 1 Test Strip QID Use 1 test strip to monitor blood glucose 4 times daily and as needed. Dx:E11.42. 06/23/19 23 023 Inactive ok to substitute with any covered alternative test strip dextromethorphan-gu aifenesin 10 mg-100 mg/5 mL oral liquid RxNorm: 578212 Take 10 Milliliter(s) Oral every 4 hours as needed for cough 06/19/19 23 023 Inactive dextromethorphan-gu aifenesin 10 mg-100 mg/5 mL oral liquid RxNorm: 948816 Take 10 Milliliter(s) Oral every 4 hours as needed for cough 06/19/19 23 023 Inactive Lyrica 150 mg capsule RxNorm: 591589 Take 1 Capsule(s) Oral QHS every night at bedtime 06/18/19 23 023 Inactive d/c 100mg dose aripiprazole 15 mg tablet RxNorm: 997609 1/2 TAB (7.5MG) ORALLY DAILY (DX:MAJOR DEPRESSIVE DISORDER) 06/05/19 23 023 Inactive pregabalin 100 mg capsule RxNorm: 873832 1 Capsule(s) Oral QAM every morning 06/02/19 023 Inactive Banophen 50 mg capsule RxNorm: 7499864 Take 1 Capsule(s) Oral Q6H every 6 hours as needed 05/19/19 No Stop Date Active Novolog Flexpen U-100 Insulin aspart 100 unit/mL (3 mL) subcutaneous RxNorm: 4210671 Inject 10 Unit(s) Subcutaneous QHS every night at bedtime with nighttime snack 04/08/20 Inactive Novolog Flexpen U-100 Insulin aspart 100 unit/mL (3 mL) subcutaneous RxNorm: 9216320 Inject 42 Unit(s) Subcutaneous TID in addition to sliding scale 04/08/20 Inactive d/c 36u albuterol sulfate HFA 90 mcg/actuation aerosol inhaler RxNorm: 7346508 Take 2 Puff(s) Inhalation Q4H every four hours as needed as needed for SOB, cough, or wheezing 04/07/20 030 Active Banophen 50 mg capsule RxNorm: 3029945 Take 1 Capsule(s) Oral Q6H every 6 hours as needed 04/06/20 023 Inactive diphenhydramine 50 mg tablet RxNorm: 3669325 Take 1 Tablet(s) Oral Q6H every 6 hours as needed 04/06/20 022 Inactive diphenhydramine 50 mg tablet RxNorm: 5030117 1 Tablet(s) Oral Q6H every 6 hours as needed 04/06/20 022 Inactive Abilify 15 mg tablet RxNorm: 505558 1/2 Tablet(s) Oral QD 03/10/20 023 Inactive Shingrix (PF) 50 mcg/0.5 mL intramuscular suspension, kit RxNorm: 5518435 Administer 1/2 Milliliter(s) Intramuscular QD one time shingrix step 2 ( step 1 given 11/04/21) WITH needle - Nursing please administer upon arrival and once administered post a 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, 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, 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, and lot# so we can update [facility]IC 02/18/20 22 022 Inactive dispense with needle Shingrix (PF) 50 mcg/0.5 mL intramuscular suspension, kit RxNorm: 8988292 Administer 1/2 Milliliter(s) Intramuscular QD one time shingrix step 2 ( step 1 given 11/04/21) WITH needle - Nursing please administer upon arrival and once administered post a bridge message 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, 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, expiration date, and lot# so we can update MIIC 02/18/20 22 022 Inactive dispense with needle acetaminophen 500 mg tablet RxNorm: 997892 Take 1 Tablet(s) Oral TID 01/08/20 22 023 Active d/c PRN order polyethylene glycol 3350 17 gram/dose oral powder RxNorm: 461599 Take 17=1 capful Gram(s) Oral QD mix with 4-8oz of liquid 01/08/20 22 023 Active take this in addition to BID prn order Lyrica 100 mg capsule RxNorm: 351552 Take 1 Capsule(s) Oral QAM every morning 01/08/20 22 022 Inactive d/c 50mg dose Lyrica 150 mg capsule RxNorm: 165904 Take 1 Capsule(s) Oral QHS every night at bedtime 01/08/20 22 023 Inactive d/c 100mg dose Abilify 5 mg tablet RxNorm: 668460 Take 1 Tablet(s) Oral QD take 1 tab po QD #30 refill 5 dx: MDD 12/12/19 22 022 Inactive Abilify 5 mg tablet RxNorm: 027008 Take 1 Tablet(s) Oral QD take 1 tab po QD #30 refill 5 dx: MDD 12/12/19 22 022 Inactive chlorthalidone 25 mg tablet RxNorm: 523465 Take 1 Tablet(s) Oral QAM every morning 12/10/19 22 023 Active Novolog Flexpen U-100 Insulin aspart 100 unit/mL (3 mL) subcutaneous RxNorm: 8725964 Inject 42 Unit(s) Subcutaneous TID in addition to sliding scale 12/10/19 22 022 Inactive d/c 36u pregabalin 50 mg capsule RxNorm: 565003 Take 1 Capsule(s) Oral QAM every morning 11/12/19 22 Inactive tetanus-diphtheria toxoids-Td 2 Lf unit-2 Lf unit/0.5 mL IM suspension RxNorm: 139 Take 0.5 Miscellaneous Intramuscular 11/12/19 22 022 Inactive need tdap - nursing to administer upon arrival pregabalin 50 mg capsule RxNorm: 639975 Take 1 Capsule(s) Oral QAM every morning 10/16/19 22 022 Inactive pregabalin 50 mg capsule RxNorm: 866089 Take 1 Capsule(s) Oral QAM every morning 10/16/19 22 022 Inactive pregabalin 50 mg capsule RxNorm: 644726 1 Capsule(s) Oral QAM every morning 10/15/19 22 022 Inactive Shingrix (PF) 50 mcg/0.5 mL intramuscular suspension, kit RxNorm: 9720102 Administer 1/2 Milliliter(s) Intramuscular one time Nursing please administer upon arrival and once administered post a bridge message 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 10/09/19 22 022 Inactive shingrix step 1 cholecalciferol (vitamin D3) 1,250 mcg (50,000 unit) capsule RxNorm: 906285 Take 1 Capsule(s) Oral QW once a [...] aspart 100 unit/mL (3 mL) subcutaneous RxNorm: 4688625 Inject 10 Unit(s) Subcutaneous QHS every night at bedtime with nighttime snack 10/08/19 22 Inactive Shingrix (PF) 50 mcg/0.5 mL intramuscular suspension, kit RxNorm: 5435953 ADMINISTER 2-DOSE SERIES PER CDC GUIDELINES 10/08/19 22 Active Shingrix (PF) 50 mcg/0.5 mL intramuscular suspension, kit RxNorm: 0818464 ADMINISTER 2-DOSE SERIES PER CDC GUIDELINES 10/08/19 22 Inactive Novolog Flexpen U-100 Insulin aspart 100 unit/mL (3 mL) subcutaneous RxNorm: 6016593 Inject 36 Unit(s) Subcutaneous TID in addition to sliding scale 10/08/19 Inactive Novofine Autocover 30 gauge x 1/3 needle RxNorm: Use 1 Miscellaneous UD as directed Use 1 needle as directed to administer insulin 5 times a day Dx:E11.42. 10/03/19 22 Inactive ok to substitute with any covered alternative pen needle benzoyl peroxide 10 % topical cleanser RxNorm: 589460 Apply 1 Application Topical QD apply to face, wash rinse and dry once daily (may change to QOD if drying) 08/19/19 22 022 Inactive (%covered by insurance) #60ml refill 11 dx: acne benzoyl peroxide 10 % topical cleanser RxNorm: 431105 Apply 1 Application Topical QD apply to face, wash rinse and dry once daily (may change to QOD if drying) 08/19/19 22 022 Inactive (%covered by insurance) #60ml refill 11 dx: acne benzoyl peroxide 10 % topical cleanser RxNorm: 356996 Apply 1 Application Topical QD apply to face, wash rinse and dry once daily (may change to QOD if drying) 08/19/19 22 022 Inactive (%covered by insurance) #60ml refill 11 dx: acne Lyrica 50 mg capsule RxNorm: 540939 Take 1 Capsule(s) Oral QAM every morning Take 1 capsule by mouth once daily 08/19/19 22 022 Inactive benzoyl peroxide 10 % topical cleanser RxNorm: 071382 Apply 1 Application Topical QD apply to face, wash rinse and dry once daily (may change to QOD if drying) 08/19/19 22 Inactive (%covered by insurance) #60ml refill 11 dx: acne Lyrica 100 mg capsule RxNorm: 405129 Take 1 Capsule(s) Oral QHS every night at bedtime Take 1 capsule by mouth once daily at bedtime 08/19/19 022 Inactive Lyrica 100 mg capsule RxNorm: 264039 Take 1 Capsule(s) Oral QHS every night at bedtime Take 1 capsule by mouth once daily at bedtime 08/16/19 22 022 Inactive Lyrica 50 mg capsule RxNorm: 470101 Take 1 Capsule(s) Oral QAM every morning Take 1 capsule by mouth once daily 08/16/19 22 022 Inactive Levemir FlexTouch U-100 Insulin 100 unit/mL (3 mL) subcutaneous pen RxNorm: 623423 Inject 86 Unit(s) Subcutaneous BID 08/05/19 22 022 Inactive d/c 83units BID Lyrica 100 mg capsule RxNorm: 493109 Take 1 Capsule(s) Oral QHS every night at bedtime Take 1 capsule by mouth once daily at bedtime 07/14/19 22 022 Inactive Lyrica 50 mg capsule RxNorm: 317642 Take 1 Capsule(s) Oral QAM every morning Take 1 capsule by mouth once daily 07/14/19 022 Inactive Levemir FlexTouch U-100 Insulin 100 unit/mL (3 mL) subcutaneous pen RxNorm: 361109 Inject 83 Unit(s) Subcutaneous BID 07/08/19 22 [...] 4 times daily and as needed. Dx:E11.06/05/19 Inactive ok to substitute with any covered [...] 30 mg tablet,extended release 24 hr RxNorm: 023113 Take 1 Tablet(s) Oral QD 05/05/20 No Stop Date Active hydralazine 50 mg tablet RxNorm: 036323 Take 1 Tablet(s) Oral QID 05/05/20 21 022 Inactive venlafaxine ER 225 mg tablet,extended release 24 hr RxNorm: 162179 Take 1 Tablet(s) Oral QD 05/05/20 21 021 Inactive venlafaxine ER 225 mg tablet,extended release 24 hr RxNorm: 018822 Take 1 Tablet(s) Oral QD 05/05/20 21 022 Inactive hydralazine 50 mg tablet RxNorm: 589926 Take 1 Tablet(s) Oral QID 05/05/20 021 Inactive aspirin 81 mg tablet,delayed release RxNorm: 713841 Take 1 Tablet(s) Oral QD 03/31/20 Inactive Zetia 10 mg tablet RxNorm: 471939 Take 1 Tablet(s) Oral QD 03/31/20 Inactive Vitamin D2 1,250 mcg (50,000 unit) capsule RxNorm: 8799699 Take 1 Capsule(s) Oral QW once a week x 12 weeks 03/31/20 022 Inactive Vitamin D2 1,250 mcg (50,000 unit) capsule RxNorm: 1777228 Take 1 Capsule(s) Oral QW once a week 03/31/20 Inactive Zetia 10 mg tablet RxNorm: 840853 Take 1 Tablet(s) Oral QD 03/31/20 Inactive hydralazine 25 mg tablet RxNorm: 335856 Take 1 Tablet(s) Oral QID 03/31/20 021 Inactive hydralazine 25 mg tablet RxNorm: 833221 Take 1 Tablet(s) Oral QID 03/31/20 021 Inactive hydralazine 10 mg tablet RxNorm: 812194 Take 1 Tablet(s) Oral QID 03/03/20 021 Inactive cephalexin 500 mg tablet RxNorm: 017606 Take 1 Tablet(s) Oral QID 02/27/20 021 Inactive cephalexin 500 mg tablet RxNorm: 282623 Take 1 Tablet(s) Oral QID 02/27/20 021 Inactive lisinopril 40 mg tablet RxNorm: 820287 Take 1 Tablet(s) Oral QD 02/11/20 21 023 Inactive Eliquis 5 mg tablet RxNorm: 4289794 Take 1 Tablet(s) Oral BID 01/05/20 21 022 Inactive Eliquis 5 mg tablet RxNorm: 0041234 Take 2 Tablet(s) Oral QD 01/01/20 21 021 Inactive Lyrica 50 mg capsule RxNorm: 885939 Take 1 Capsule(s) Oral QAM every morning 12/24/19 21 021 Inactive Lyrica 100 mg capsule RxNorm: 322213 Take 1 Capsule(s) Oral QHS every night at bedtime 12/24/19 21 021 Inactive clotrimazole 1 % topical cream RxNorm: 004867 Apply to right foot and toes Topical BID 12/04/19 21 023 Inactive metoprolol succinate ER 200 mg tablet,extended release 24 hr RxNorm: 490060 Take 1 Tablet(s) Oral QD 12/04/19 21 023 Inactive ciprofloxacin 500 mg tablet RxNorm: 420263 Take 1 Tablet(s) Oral QD 11/30/19 21 021 Inactive DX ofloxacin otic drops Accu-Chek Guide test strips RxNorm: USE 1 TO CHECK GLUCOSE 4 TIMES DAILY AND NEEDED 11/15/19 023 Inactive Blood Glucose Test strips RxNorm: Use 1 Test Strip QID at PRN 11/05/19 21 023 Inactive E11.42 lisinopril 30 mg tablet RxNorm: 696110 Take 1 Tablet(s) Oral QD 10/30/19 021 Inactive lisinopril 20 mg tablet RxNorm: 733882 Take 1 Tablet(s) Oral QD 10/23/19 21 021 Inactive lisinopril 20 mg tablet RxNorm: 317643 Take 1 Tablet(s) Oral QD 10/23/19 21 021 Inactive lisinopril 10 mg tablet RxNorm: 244643 Take 1 Tablet(s) Oral QD 10/02/19 21 021 Inactive icosapent ethyl 1 gram capsule RxNorm: 4801597 Take 2 Capsule(s) (2 gm) Oral BID with meals 09/12/19 022 Inactive Okay to dispense one 2gm tab if you have that available. icosapent ethyl 1 gram capsule RxNorm: 2078184 Take 2 Capsule(s) Oral BID 09/12/19 21 021 Inactive Okay to dispense one 2gm tab if you have that available. amlodipine 10 mg tablet RxNorm: 657531 Take 1 Tablet(s) Oral QD 09/04/19 21 022 Inactive aspirin 81 mg tablet,delayed release RxNorm: 393586 Take 1 Tablet(s) Oral QD 09/04/19 21 Inactive Levemir FlexTouch U-100 Insulin 100 unit/mL (3 mL) subcutaneous pen RxNorm: 621108 Inject 150 Unit(s) Subcutaneous BID 09/04/19 21 022 Inactive venlafaxine ER 150 mg tablet,extended release 24 hr RxNorm: 925804 Take 1 Tablet(s) Oral QD 09/04/19 21 Inactive clotrimazole-betame thasone 1 %-0.05 % topical cream RxNorm: 979682 Apply to rash on red area on left abdomen/chest Topical BID 08/10/19 21 Inactive amlodipine 5 mg tablet RxNorm: 257392 Take 1 Tablet(s) Oral QD 07/31/19 Inactive cephalexin 500 mg tablet RxNorm: 462709 Take 1 Tablet(s) Oral BID BID - Twice Daily 07/31/19 021 Inactive Start 08/01/20 pantoprazole 40 mg tablet,delayed release RxNorm: 980356 Take 1 Tablet(s) Oral QAM every morning 07/08/19 022 Inactive senna 8.6 mg tablet RxNorm: 782918 Take 1 Tablet(s) Oral QD 07/08/19 022 Inactive pravastatin 80 mg tablet RxNorm: 735931 Take 1 Tablet(s) Oral QHS every night at bedtime 07/08/19 022 Inactive carbamazepine 200 mg tablet RxNorm: 360560 Take 1 Tablet(s) Oral BID 07/08/19 21 022 Inactive clopidogrel 75 mg tablet RxNorm: 605169 Take 1 Tablet(s) Oral QD 07/08/19 21 021 Inactive Blood Glucose Test strips RxNorm: Use 1 Test Strip QID at PRN 07/08/19 21 021 Inactive E11.42 Novolog Flexpen U-100 Insulin aspart 100 unit/mL (3 mL) subcutaneous RxNorm: 0950465 Administer per sliding scale Milliliter(s) Subcutaneous TID 151-200: 10 u; 201-250: 20 u; 251-300: 30 u; 301-350: 40 u; 351-400: 50 u. 07/08/19 022 Inactive lisinopril 5 mg tablet RxNorm: 380272 Take 1 Tablet(s) Oral QD 07/08/19 021 Inactive Novolog Flexpen U-100 Insulin aspart 100 unit/mL (3 mL) subcutaneous RxNorm: 3733293 Inject 85 Unit(s) Subcutaneous TID 07/08/19 022 Inactive clotrimazole 1 % topical cream RxNorm: 296034 Apply to bilateral groin areas Topical BID 07/08/19 022 Inactive metoprolol succinate ER 200 mg tablet,extended release 24 hr RxNorm: 013252 Take 1 Tablet(s) Oral QD 07/08/19 021 Inactive Vitamin D3 25 mcg (1,000 unit) tablet RxNorm: 074836 Take 1 Tablet(s) Oral QD 07/08/19 021 Inactive isosorbide dinitrate 30 mg tablet RxNorm: 061486 Take 1 Tablet(s) Oral QD 07/08/19 021 Inactive Levemir FlexTouch U-100 Insulin 100 unit/mL (3 mL) subcutaneous pen RxNorm: 090105 Inject 140 Unit(s) Subcutaneous BID 07/08/19 021 Inactive torsemide 20 mg tablet RxNorm: 497951 Take 1 Tablet(s) Oral QD 07/08/19 023 Inactive venlafaxine 75 mg tablet RxNorm: 289607 Take 1 Tablet(s) Oral QD 07/08/19 021 Inactive acetaminophen 500 mg tablet RxNorm: 074396 Take 1 Tablet(s) Oral TID as needed for headache 06/18/19 21 021 Inactive acetaminophen 500 mg tablet RxNorm: 848887 Take 1 Tablet(s) Oral TID as needed for headache 06/18/19 21 021 Inactive Lyrica 100 mg capsule RxNorm: 234896 Take 1 Capsule(s) Oral QHS every night at bedtime 06/11/19 21 021 Inactive Lyrica 50 mg capsule RxNorm: 683823 Take 1 Capsule(s) Oral QAM every morning 06/10/19 21 021 Inactive hydrocortisone 2.5 % topical cream RxNorm: 675557 Apply to bilateral groin creases Topical BID 05/15/20 20 021 Inactive clotrimazole 1 % topical cream RxNorm: 082934 Apply to bilateral groin areas Topical BID 05/15/20 20 021 Inactive Lyrica 50 mg capsule RxNorm: 420336 Take 1 Capsule(s) Oral QAM every morning 05/14/20 20 020 Inactive Lyrica 100 mg capsule RxNorm: 875100 Take 1 Capsule(s) Oral QHS every night [...] Inactive Nystop 100,000 unit/gram topical powder RxNorm: 252745 Apply to abd folds, under breasts and L side of groin Topical BID x 14 days, then BID PRN 04/08/20 20 021 Inactive dx: yeast dermatitis Lyrica 100 mg capsule RxNorm: 309247 Take 1 Capsule(s) Oral QHS every night at bedtime 03/13/20 20 020 Inactive Lyrica 50 mg capsule RxNorm: 061121 Take 1 Capsule(s) Oral QAM every morning 03/13/20 20 Inactive ketoconazole 2 % shampoo RxNorm: 343158 Apply Topical two times a week with showers 03/11/20 Inactive cholecalciferol (vitamin D3) 50 mcg (2,000 unit) tablet RxNorm: 993914 Take 1 Tablet(s) Oral QD 03/11/20 Inactive Zetia 10 mg tablet RxNorm: 446276 Take 1 Tablet(s) Oral QD 03/07/20 Inactive Zetia 10 mg tablet RxNorm: 701932 Take 1 Tablet(s) Oral QD 03/07/20 Inactive Lyrica 50 mg capsule RxNorm: 414715 Take 1 Capsule(s) Oral QAM every morning 02/15/20 Inactive Lyrica 100 mg capsule RxNorm: 154801 Take 1 Capsule(s) Oral QHS every night at bedtime 02/15/20 Inactive Lyrica 100 mg capsule RxNorm: 891559 Take 1 Capsule(s) Oral QHS every night at bedtime 02/15/20 Inactive Lyrica 50 mg capsule RxNorm: 869571 Take 1 Capsule(s) Oral QAM every morning 02/15/20 Inactive venlafaxine ER 75 mg capsule,extended release 24 hr RxNorm: 966836 Take 3 Capsule(s) Oral QD 06/12/19 Active polyethylene glycol 3350 17 gram/dose oral powder RxNorm: 457669 Take 17=1 capful Gram(s) Oral BID as needed mix with 4-8oz of liquid 06/12/19 Active metoprolol succinate ER 200 mg tablet,extended release 24 hr RxNorm: 069488 Take 1 Tablet(s) Oral QD 08/12/19 23 Active loperamide 2 mg capsule RxNorm: 677013 Take 1 Capsule(s) Oral QID as needed 06/12/19 Active hydralazine 50 mg tablet RxNorm: 422382 Take 1 Tablet(s) Oral QID 08/12/19 23 Active icosapent ethyl 1 gram capsule RxNorm: 5800555 Take 2 Capsule(s) (2 gm) Oral BID with meals 10/07/19 23 023 Inactive Okay to dispense one 2gm tab if you have that available. Levemir FlexTouch U-100 Insulin 100 unit/mL (3 mL) subcutaneous pen RxNorm: 568916 Inject 80 Unit(s) Subcutaneous BID 07/14/19 23 023 Inactive Novolog Flexpen U-100 Insulin aspart 100 unit/mL (3 mL) subcutaneous RxNorm: 2555052 Insert 30 Unit(s) Subcutaneous TID with meals [...] Encounter Performer Location Location Address Codes Date (66131) Home or Residence Visit Est Pt - [...] Hypertensive heart disease without heart failure[ICD10: I11.9] Tapan Shirley [facility] [place] [address] [address] [place] [address] CPT-4: 81585 10/06/2022 Plan of Care Planned Activity Notes Codes Status Date Patient Education: Patient M edication Summary Completed 10/06/2022 Patient Education: Influenza Vaccine Completed 10/06/2022 Referral: [facility] [address] [id number] [place] Referral Records Received 09/21/2022 Appointment: Tapan Shirley WPtel: [address] [facility] [address] [id number] [place] F/U 08/11/2022 Appointment: Tapan Shirley WPtel: [address] [place] F/U 07/14/2022 Appointment: Tapan Shirley WPtel: [address] [facility] [address] [id number] [place] F/U 02/10/2022 Referral: [facility] WPtel: [address] [id number] [place] Referral Completed 05/28/2021 Referral: General Cardiology [...] [facility].??Sister Jyotsna involved in his care cell# [phone]??Guardian: Don (tapan met in person 09/01/21), now has Lexii (same group as don)Lab Schedule: /September* 10/06/2022 Diabetes Now closely followed by endo [...] pain worsens, staff to update on bridge.?? . 10/06/2022
--- OUTSIDE RECORDS SUMMARY | 2022-11-10 00:01 | XMS_ITS | CCD ---
Author Name Sandra Clark CNP Address [address] [place] [address] Phone Organization [facility] Phone Care Team Providers Care Clinical Haematologist Name Role Phone Tapan Shirley PA-C Primary Care Provider Unavailabl e Tapan Shirley PA-C Chronic Care Management Unavaila ble Summary Purpose DataExchange Insurance Providers Payer name Policy type / Coverage type Covered democrat ID Effective Begin Date Effective End Date Medicare [place] Medicare Part B [id number] Unknown Unknown Medicaid [place] Medicare Part B [id number] Unknown Unknown Family history Sister Brittany Suggs [...] Residential 09/03/[address]: 0585385 Non-Smoker / No History of Smoking 09/02/[address]: 307453601 No Alcohol Consum ption 09/02/2020 Allergies, Adverse Reactions, Alerts Substance Reaction Codes Entered Date Inactivated Date Status LISINOPRIL RxNorm: 66719 02/12/2020 No Inactive Da te Active Metformin [...] Active Hypertensive heart disease w [facility] heart failure ICD-10: I11.9 ICD-9: 402.90 02/10/2022 [...] 02/10/2022 Resolved Coronary artery disease invo lving [place] coronary artery of [place] heart, angina presence unspecified ICD-10: I25.10 [...] Fill Instructions Abilify 15 mg tablet RxNorm: 208650 /2 Tablet(s) Oral QD 03/10/20 22 023 Inactive Shingrix (PF) 50 mcg/0.5 mL intramuscular suspension, kit RxNorm: 2857428 Administer 1/2 Milliliter(s) Intramuscular QD one time shingrix step 2 ( step 1 given 11/04/21) WITH needle - Nursing please administer upon arrival and once administered post a bridge message with date of administration, buck presser, expiration date, and lot# so we can update [facility] 02/18/20 22 022 Inactive dispense with needle Shingrix (PF) 50 mcg/0.5 mL intramuscular suspension, kit RxNorm: 5492153 Administer 1/2 Milliliter(s) Intramuscular QD one time shingrix step 2 ( step 1 given 11/04/21) WITH needle - Nursing please administer upon arrival and once administered post a bridge message with date of administration, buck presser, expiration date, and lot# so we can update [facility] 02/18/20 22 022 Inactive dispense with needle acetaminophen 500 mg tablet RxNorm: 670417 Take 1 Tablet(s) Oral TID 01/08/20 22 023 Active d/c PRN order Lyrica 150 mg capsule RxNorm: 810705 Take 1 Capsule(s) Oral QHS every night at bedtime 01/08/20 22 023 Inactive d/c 100mg dose polyethylene glycol 3350 17 gram/dose oral powder RxNorm: 359281 Take 17=1 capful Gram(s) Oral QD mix with 4-8oz of liquid 01/08/20 22 023 Active take this in addition to BID prn order Lyrica 100 mg capsule RxNorm: 417123 Take 1 Capsule(s) Oral QAM every morning 01/08/20 22 022 Inactive d/c 50mg dose Abilify 5 mg tablet RxNorm: 416831 Take 1 Tablet(s) Oral QD take 1 tab po QD #30 refill 5 dx: MDD 12/12/19 22 022 Inactive Abilify 5 mg tablet RxNorm: 956864 Take 1 Tablet(s) Oral QD take 1 tab po QD #30 refill 5 dx: MDD 12/12/19 22 022 Inactive chlorthalidone 25 mg tablet RxNorm: 302722 Take 1 Tablet(s) Oral QAM every morning 12/10/19 22 023 Active Novolog Flexpen U-100 Insulin aspart 100 unit/mL (3 mL) subcutaneous RxNorm: 0768608 Inject 42 Unit(s) Subcutaneous TID in addition to sliding scale 12/10/19 22 022 Inactive d/c 36u pregabalin 50 mg capsule RxNorm: 431990 Take 1 Capsule(s) Oral QAM every morning 11/12/19 22 022 Inactive tetanus-diphtheria toxoids-Td 2 Lf unit-2 Lf unit/0.5 mL IM suspension RxNorm: 139 Take 0.5 Miscellaneous Intramuscular 11/12/19 22 022 Inactive need tdap - nursing to administer upon arrival pregabalin 50 mg capsule RxNorm: 706113 Take 1 Capsule(s) Oral QAM every morning 10/16/19 22 022 Inactive pregabalin 50 mg capsule RxNorm: 963041 Take 1 Capsule(s) Oral QAM every morning 10/16/19 22 022 Inactive pregabalin 50 mg capsule RxNorm: 013254 1 Capsule(s) Oral QAM every morning 10/15/19 22 022 Inactive Shingrix (PF) 50 mcg/0.5 mL intramuscular suspension, kit RxNorm: 0308455 Administer 1/2 Milliliter(s) Intramuscular one time Nursing please administer upon arrival and once administered post a bridge message with date of administration, buck presser, 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 10/09/19 22 022 Inactive shingrix step 1 Shingrix (PF) 50 mcg/0.5 mL intramuscular suspension, kit RxNorm: 3787523 Administer 1/2 Milliliter(s) Intramuscular one time Nursing please administer upon arrival and once administered post a bridge message with date of administration, buck presser, 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 10/09/19 22 022 Inactive shingrix step 1 Novolog Flexpen U-100 Insulin aspart 100 unit/mL (3 mL) subcutaneous RxNorm: 1301529 Inject 10 Unit(s) Subcutaneous QHS every night at bedtime with nighttime snack 10/08/19 22 022 Inactive cholecalciferol (vitamin D3) 1,250 mcg (50,000 unit) capsule RxNorm: 630356 Take 1 Capsule(s) Oral QW once a [...] 50 mcg/0.5 mL intramuscular suspension, kit RxNorm: 5088935 ADMINISTER 2-DOSE SERIES PER CDC GUIDELINES 10/08/19 22 Active Shingrix (PF) 50 mcg/0.5 mL intramuscular suspension, kit RxNorm: 0737283 ADMINISTER 2-DOSE SERIES PER CDC GUIDELINES 10/08/19 22 Inactive Novolog Flexpen U-100 Insulin aspart 100 unit/mL (3 mL) subcutaneous RxNorm: 7932450 Inject 36 Unit(s) Subcutaneous TID in addition to sliding scale 10/08/19 Inactive Novofine Autocover 30 gauge x 1/3 needle RxNorm: Use 1 Miscellaneous UD as directed Use 1 needle as directed to administer insulin 5 times a day Dx:E11.42. 10/03/19 Inactive ok to substitute with any covered alternative pen needle benzoyl peroxide 10 % topical cleanser RxNorm: 525721 Apply 1 Application Topical QD apply to face, wash rinse and dry once daily (may change to QOD if drying) 08/19/19 022 Inactive (%covered by insurance) #60ml refill 11 dx: acne benzoyl peroxide 10 % topical cleanser RxNorm: 733142 Apply 1 Application Topical QD apply to face, wash rinse and dry once daily (may change to QOD if drying) 08/19/19 022 Inactive (%covered by insurance) #60ml refill 11 dx: acne benzoyl peroxide 10 % topical cleanser RxNorm: 443591 Apply 1 Application Topical QD apply to face, wash rinse and dry once daily (may change to QOD if drying) 08/19/19 22 022 Inactive (%covered by insurance) #60ml refill 11 dx: acne Lyrica 50 mg capsule RxNorm: 878006 Take 1 Capsule(s) Oral QAM every morning Take 1 capsule by mouth once daily 08/19/19 22 Inactive benzoyl peroxide 10 % topical cleanser RxNorm: 731988 Apply 1 Application Topical QD apply to face, wash rinse and dry once daily (may change to QOD if drying) 08/19/19 22 022 Inactive (%covered by insurance) #60ml refill 11 dx: acne Lyrica 100 mg capsule RxNorm: 374922 Take 1 Capsule(s) Oral QHS every night at bedtime Take 1 capsule by mouth once daily at bedtime 08/19/19 22 022 Inactive Lyrica 100 mg capsule RxNorm: 442360 Take 1 Capsule(s) Oral QHS every night at bedtime Take 1 capsule by mouth once daily at bedtime 08/16/19 22 022 Inactive Lyrica 50 mg capsule RxNorm: 214137 Take 1 Capsule(s) Oral QAM every morning Take 1 capsule by mouth once daily 08/16/19 22 022 Inactive Levemir FlexTouch U-100 Insulin 100 unit/mL (3 mL) subcutaneous pen RxNorm: 103904 Inject 86 Unit(s) Subcutaneous BID 08/05/19 22 022 Inactive d/c 83units BID Lyrica 100 mg capsule RxNorm: 358081 Take 1 Capsule(s) Oral QHS every night at bedtime Take 1 capsule by mouth once daily at bedtime 07/14/19 22 022 Inactive Lyrica 50 mg capsule RxNorm: 007976 Take 1 Capsule(s) Oral QAM every morning Take 1 capsule by mouth once daily 07/14/19 22 022 Inactive Levemir FlexTouch U-100 Insulin 100 unit/mL (3 mL) subcutaneous pen RxNorm: 128775 Inject 83 Unit(s) Subcutaneous BID 07/08/19 22 [...] test strip hydralazine 50 mg tablet RxNorm: 637974 Take 1 Tablet(s) Oral QID 05/05/20 21 Inactive isosorbide mononitrate ER 30 mg tablet,extended release 24 hr RxNorm: 149483 Take 1 Tablet(s) Oral QD 05/05/20 No Stop Date Active venlafaxine ER 225 mg tablet,extended release 24 hr RxNorm: 548392 Take 1 Tablet(s) Oral QD 05/05/20 21 021 Inactive venlafaxine ER 225 mg tablet,extended release 24 hr RxNorm: 247892 Take 1 Tablet(s) Oral QD 05/05/20 21 022 Inactive hydralazine 50 mg tablet RxNorm: 552868 Take 1 Tablet(s) Oral QID 05/05/20 21 Inactive aspirin 81 mg tablet,delayed release RxNorm: 719735 Take 1 Tablet(s) Oral QD 03/31/20 21 Inactive Zetia 10 mg tablet RxNorm: 023296 Take 1 Tablet(s) Oral QD 03/31/20 21 Inactive Vitamin D2 1,250 mcg (50,000 unit) capsule RxNorm: 8292615 Take 1 Capsule(s) Oral QW once a week x 12 weeks 03/31/20 022 Inactive Vitamin D2 1,250 mcg (50,000 unit) capsule RxNorm: 0907799 Take 1 Capsule(s) Oral QW once a week 03/31/20 Inactive Zetia 10 mg tablet RxNorm: 265264 Take 1 Tablet(s) Oral QD 03/31/20 Inactive hydralazine 25 mg tablet RxNorm: 594877 Take 1 Tablet(s) Oral QID 03/31/20 021 Inactive hydralazine 25 mg tablet RxNorm: 054945 Take 1 Tablet(s) Oral QID 03/31/20 Inactive hydralazine 10 mg tablet RxNorm: 768774 Take 1 Tablet(s) Oral QID 03/03/20 021 Inactive cephalexin 500 mg tablet RxNorm: 873028 Take 1 Tablet(s) Oral QID 02/27/20 021 Inactive cephalexin 500 mg tablet RxNorm: 685877 Take 1 Tablet(s) Oral QID 02/27/20 021 Inactive lisinopril 40 mg tablet RxNorm: 423188 Take 1 Tablet(s) Oral QD 02/11/20 21 023 Inactive Eliquis 5 mg tablet RxNorm: 8949677 Take 1 Tablet(s) Oral BID 01/05/20 21 022 Inactive Eliquis 5 mg tablet RxNorm: 2990157 Take 2 Tablet(s) Oral QD 01/01/20 21 021 Inactive Lyrica 50 mg capsule RxNorm: 219882 Take 1 Capsule(s) Oral QAM every morning 12/24/19 21 021 Inactive Lyrica 100 mg capsule RxNorm: 866759 Take 1 Capsule(s) Oral QHS every night at bedtime 12/24/19 21 021 Inactive clotrimazole 1 % topical cream RxNorm: 856941 Apply to right foot and toes Topical BID 12/04/19 21 023 Inactive metoprolol succinate ER 200 mg tablet,extended release 24 hr RxNorm: 910069 Take 1 Tablet(s) Oral QD 12/04/19 023 Inactive ciprofloxacin 500 mg tablet RxNorm: 718719 Take 1 Tablet(s) Oral QD 11/30/19 21 021 Inactive DX ofloxacin otic drops Accu-Chek Guide test strips RxNorm: USE 1 TO CHECK GLUCOSE 4 TIMES DAILY AND NEEDED 11/15/19 21 023 Inactive Blood Glucose Test strips RxNorm: Use 1 Test Strip QID at PRN 11/05/19 21 023 Inactive E11.42 lisinopril 30 mg tablet RxNorm: 587463 Take 1 Tablet(s) Oral QD 10/30/19 021 Inactive lisinopril 20 mg tablet RxNorm: 040157 Take 1 Tablet(s) Oral QD 10/23/19 021 Inactive lisinopril 20 mg tablet RxNorm: 091587 Take 1 Tablet(s) Oral QD 10/23/19 021 Inactive lisinopril 10 mg tablet RxNorm: 745761 Take 1 Tablet(s) Oral QD 10/02/19 021 Inactive icosapent ethyl 1 gram capsule RxNorm: 0759724 Take 2 Capsule(s) (2 gm) Oral BID with meals 09/12/19 022 Inactive Okay to dispense one 2gm tab if you have that available. icosapent ethyl 1 gram capsule RxNorm: 6236672 Take 2 Capsule(s) Oral BID 09/12/19 021 Inactive Okay to dispense one 2gm tab if you have that available. amlodipine 10 mg tablet RxNorm: 948135 Take 1 Tablet(s) Oral QD 09/04/19 022 Inactive aspirin 81 mg tablet,delayed release RxNorm: 147107 Take 1 Tablet(s) Oral QD 09/04/19 21 021 Inactive Levemir FlexTouch U-100 Insulin 100 unit/mL (3 mL) subcutaneous pen RxNorm: 097440 Inject 150 Unit(s) Subcutaneous BID 09/04/19 21 022 Inactive venlafaxine ER 150 mg tablet,extended release 24 hr RxNorm: 429654 Take 1 Tablet(s) Oral QD 09/04/19 Inactive clotrimazole-betame thasone 1 %-0.05 % topical cream RxNorm: 925830 Apply to rash on red area on left abdomen/chest Topical BID 08/10/19 21 Inactive amlodipine 5 mg tablet RxNorm: 851969 Take 1 Tablet(s) Oral QD 07/31/19 Inactive cephalexin 500 mg tablet RxNorm: 070708 Take 1 Tablet(s) Oral BID BID - Twice Daily 07/31/19 Inactive Start 08/01/20 pantoprazole 40 mg tablet,delayed release RxNorm: 815792 Take 1 Tablet(s) Oral QAM every morning 07/08/19 022 Inactive senna 8.6 mg tablet RxNorm: 101077 Take 1 Tablet(s) Oral QD 07/08/19 022 Inactive pravastatin 80 mg tablet RxNorm: 620787 Take 1 Tablet(s) Oral QHS every night at bedtime 07/08/19 022 Inactive carbamazepine 200 mg tablet RxNorm: 952108 Take 1 Tablet(s) Oral BID 07/08/19 022 Inactive torsemide 20 mg tablet RxNorm: 345602 Take 1 Tablet(s) Oral QD 07/08/19 023 Inactive clopidogrel 75 mg tablet RxNorm: 244952 Take 1 Tablet(s) Oral QD 07/08/19 021 Inactive Blood Glucose Test strips RxNorm: Use 1 Test Strip QID at PRN 07/08/19 Inactive E11.42 Novolog Flexpen U-100 Insulin aspart 100 unit/mL (3 mL) subcutaneous RxNorm: 5616725 Administer per sliding scale Milliliter(s) Subcutaneous TID 151-200: 10 u; 201-250: 20 u; 251-300: 30 u; 301-350: 40 u; 351-400: 50 u. 07/08/19 21 022 Inactive lisinopril 5 mg tablet RxNorm: 920389 Take 1 Tablet(s) Oral QD 07/08/19 021 Inactive Novolog Flexpen U-100 Insulin aspart 100 unit/mL (3 mL) subcutaneous RxNorm: 0138279 Inject 85 Unit(s) Subcutaneous TID 07/08/19 022 Inactive clotrimazole 1 % topical cream RxNorm: 243643 Apply to bilateral groin areas Topical BID 07/08/19 022 Inactive metoprolol succinate ER 200 mg tablet,extended release 24 hr RxNorm: 150811 Take 1 Tablet(s) Oral QD 07/08/19 021 Inactive Vitamin D3 25 mcg (1,000 unit) tablet RxNorm: 982248 Take 1 Tablet(s) Oral QD 07/08/19 021 Inactive isosorbide dinitrate 30 mg tablet RxNorm: 176977 Take 1 Tablet(s) Oral QD 07/08/19 021 Inactive Levemir FlexTouch U-100 Insulin 100 unit/mL (3 mL) subcutaneous pen RxNorm: 373100 Inject 140 Unit(s) Subcutaneous BID 07/08/19 021 Inactive venlafaxine 75 mg tablet RxNorm: 161570 Take 1 Tablet(s) Oral QD 07/08/19 021 Inactive acetaminophen 500 mg tablet RxNorm: 111015 Take 1 Tablet(s) Oral TID as needed for headache 06/18/19 021 Inactive acetaminophen 500 mg tablet RxNorm: 477896 Take 1 Tablet(s) Oral TID as needed for headache 06/18/19 021 Inactive Lyrica 100 mg capsule RxNorm: 151774 Take 1 Capsule(s) Oral QHS every night at bedtime 06/11/19 021 Inactive Lyrica 50 mg capsule RxNorm: 415625 Take 1 Capsule(s) Oral QAM every morning 06/10/19 21 021 Inactive hydrocortisone 2.5 % topical cream RxNorm: 035156 Apply to bilateral groin creases Topical BID 05/15/20 20 021 Inactive clotrimazole 1 % topical cream RxNorm: 040010 Apply to bilateral groin areas Topical BID 05/15/20 20 Inactive Lyrica 50 mg capsule RxNorm: 122047 Take 1 Capsule(s) Oral QAM every morning 05/14/20 20 Inactive Lyrica 100 mg capsule RxNorm: 835638 Take 1 Capsule(s) Oral QHS every night [...] Inactive Nystop 100,000 unit/gram topical powder RxNorm: 971166 Apply to abd folds, under breasts and L side of groin Topical BID x 14 days, then BID PRN 04/08/20 20 021 Inactive dx: yeast dermatitis Lyrica 100 mg capsule RxNorm: 392493 Take 1 Capsule(s) Oral QHS every night at bedtime 03/13/20 20 Inactive Lyrica 50 mg capsule RxNorm: 777303 Take 1 Capsule(s) Oral QAM every morning 03/13/20 20 020 Inactive ketoconazole 2 % shampoo RxNorm: 500935 Apply Topical two times a week with showers 03/11/20 20 021 Inactive cholecalciferol (vitamin D3) 50 mcg (2,000 unit) tablet RxNorm: 200692 Take 1 Tablet(s) Oral QD 03/11/20 20 Inactive Zetia 10 mg tablet RxNorm: 644658 Take 1 Tablet(s) Oral QD 03/07/20 Inactive Zetia 10 mg tablet RxNorm: 131824 Take 1 Tablet(s) Oral QD 03/07/20 Inactive Lyrica 50 mg capsule RxNorm: 393263 Take 1 Capsule(s) Oral QAM every morning 02/15/20 Inactive Lyrica 100 mg capsule RxNorm: 102901 Take 1 Capsule(s) Oral QHS every night at bedtime 02/15/20 Inactive Lyrica 100 mg capsule RxNorm: 088753 Take 1 Capsule(s) Oral QHS every night at bedtime 02/15/20 Inactive Lyrica 50 mg capsule RxNorm: 195361 Take 1 Capsule(s) Oral QAM every morning 02/15/20 Inactive venlafaxine ER 75 mg capsule,extended release 24 hr RxNorm: 432188 Take 3 Capsule(s) Oral QD 06/12/19 Active polyethylene glycol 3350 17 gram/dose oral powder RxNorm: 091826 Take 17=1 capful Gram(s) Oral BID as needed mix with 4-8oz of liquid 06/12/19 Active Levemir FlexTouch U-100 Insulin 100 unit/mL (3 mL) subcutaneous pen RxNorm: 194361 Inject 80 Unit(s) Subcutaneous BID 07/14/19 23 023 Inactive loperamide 2 mg capsule RxNorm: 858528 Take 1 Capsule(s) Oral QID as needed 06/12/19 22 Active Novolog Flexpen U-100 Insulin aspart 100 unit/mL (3 mL) subcutaneous RxNorm: 8732891 Insert 30 Unit(s) Subcutaneous TID with meals [...] Encounter Performer Location Location Address Codes Date (72380) DOMICIL VISIT EST PAT w/95 modifier Diagnosis: Major depression, recurrent[ICD10: F33.9] Diagnosis: Seizure disorder[ICD10: G40.909] Diagnosis: Type 2 diabetes mellitus with diabetic polyneuropathy, with long-term current use of insulin[ICD10: E11.42] Diagnosis: Stage 2 chronic 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[ICD10: E11.22] Sandra Clark [address] [place] [address] CPT-4: 32084 04/02/2022 Plan of Care Planned Activity Notes Codes Status Date Referral: [facility] WPtel: [address], [address] [id number] [place] Referral Records Received 09/21/2022 Patient Education: Patient M edication Summary Completed 04/02/2022 Patient Education: Influenza Vaccine Completed 04/02/2022 Appointment: Tapan Shirley WPtel: [address] [facility] [facility] [address] [id number] F/U 02/10/2022 Referral: [facility] WPtel: [address] [id number] [place] Referral Completed 05/28/2021 Referral: General Cardiology [...] attention.??Sister Jyotsna involved in his care cell# [phone]??Guardian: Don (tapan met in person 09/01/21), now [...] concurrent use of psychotropic medication use.? . 04/02/2022
[2022-11-10 00:07] VITALS: BP 146/86; PULSE 68; RESP 18; O2SAT 94
[2022-12-23 15:32] LABS: Glucose, Point-of-Care* 518 mg/dl (60-115)
[2022-12-23 15:33] LABS: Glucose, Point-of-Care* 473 mg/dl (60-115)
== END 2022-11-10 00:23 | disposition home or self-care (01) ==
LOC: ED 23:17
PROVIDERS: Emergency Provider Emergency Medicine Emergency Medical Services
DX: E11.65 Type 2 diabetes mellitus with hyperglycemia (principal); Z79.4 Long term (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 insulin
CPT/HCPCS: 82947; 82962; 96374; 99284

== ENCOUNTER 2022-11-10 00:15 | Outpatient (CLI) | payer MEDICARE, MEDICAID, SELFPAY | END 2022-11-10 00:16 | disposition home or self-care (01) | LOC: AMB 11-17 09:26 | PROVIDERS: Visit Provider Family Medicine | DX: E11.65 Type 2 diabetes mellitus with hyperglycemia (principal) | CPT/HCPCS: A0425; A0428 ==

== ENCOUNTER 2022-12-07 22:20 | Outpatient (CLI) | payer MEDICARE, MEDICAID, SELFPAY | END 2022-12-07 22:21 | disposition home or self-care (01) | LOC: AMB 12-24 05:11 | PROVIDERS: Visit Provider Family Medicine | DX: R07.89 Other chest pain (principal) | CPT/HCPCS: A0425; A0427 ==

== ENCOUNTER 2022-12-07 23:00 | Emergency (ER) | payer MEDICARE, MEDICAID, SELFPAY ==
[2022-12-07 23:15] VITALS: BP 150/72; PULSE 77; RESP 18; O2SAT 96
[2022-12-07 23:27] VITALS: BP 125/85; PULSE 83; RESP 18; TEMP 36.9; O2SAT 96; BMI 62.1
[2022-12-07 23:30] VITALS: BP 140/69; PULSE 78; RESP 18; O2SAT 94
[2022-12-07 23:45] VITALS: BP 135/54; PULSE 79; RESP 18; O2SAT 93
[2022-12-07 23:57] LABS: Basophils Absolute Auto 0.02 K/uL (0.00-0.30); Basophils Percent Auto 0.4 % (0.0-3.0); Eosinophils Absolute Auto 0.24 K/uL (0.00-0.50); Eosinophils Percent Auto 4.4 % (0.0-7.0); Hematocrit 38.1 % (37.0-53.0); Hemoglobin* 13.2 gm/dL (13.5-17.5); Immature Granulocytes Abs Auto 0.01 K/uL (0.00-0.30); Immature Granulocytes Pct Auto 0.2 %; Lymphocytes Percent Auto 43.9 % (20-44); Mean Corpuscular HGB Conc 35 gm/dL (32-36); Mean Corpuscular Hemoglobin 29 pg (26-34); Mean Corpuscular Volume 84 fL (80-100); Monocytes Percent Auto 7.3 % (0.0-11.0); Neutrophils Percent Auto 43.8 % (42.0-72.0); Platelet Count* 184 K/uL (140-440); Red Blood Count 4.52 m/uL (4.30-5.90); Slide Review Reflex No; White Blood Count* 5.47 K/uL (4.50-11.00)
[2022-12-08] VITALS (7 sets, daily range): BP systolic 111–138; BP diastolic 47–77; PULSE 76–79; RESP 18; TEMP 36.8; O2SAT 93–96
[2022-12-08 00:11] LABS: Chloride* 94 mmol/L (96-114)
[2022-12-08 00:12] LABS: Sodium* 137 mmol/L (135-149)
[2022-12-08 00:14] LABS: Creatinine* 1.2 mg/dL (0.5-1.5); Est. Creatinine Clearance* 56.86; Estimated Glomerular Filt Rate 68 ml/min
[2022-12-08 00:15] LABS: Blood Urea Nitrogen* 33 mg/dL (7-30); Calcium* 8.6 mg/dL (8.4-10.6); Carbon Dioxide* 32 mmol/L (20-32); Glucose* 298 mg/dL (60-115)
[2022-12-08 00:19] LABS: Potassium* 2.9 mmol/L (3.6-5.1)
--- NOTE | 2022-12-08 00:33 | ED.GENADULT ---
HPI - General Adult General Date Seen: 12/08/22 Chief complaint: Chest Pain Stated complaint: Chest Pain Time Seen by Provider: 12/08/22 00:06 Source: patient Mode of arrival: ambulatory Limitations: no limitations History of Present Illness HPI narrative: Patient is a 62-year-old male from a nursing home with a history of DVT, diabetes, coronary artery disease as well as significant obesity who has been having chest pain, abdominal pain and headaches for the past couple of days. No fevers he is aware of. No nausea or vomiting. He says that because of the persistent chest pain and his history of stents he thought he should get it checked out. He was given nitroglycerin by the a ambulance and did not have any change in his symptoms. He says the pain is localized in the left chest but also has upper abdominal and left upper quadrant pain. He has had headaches behind his eyes consistently for the past 2-3 days as well. He is fairly inactive. He does take Eliquis secondary to his history of DVT. He does not smoke. Related Data Home Medications Medication Instructions Recorded Confirmed amlodipine 10 mg tablet 10 mg PO DAILY 03/07/22 07/24/22 apixaban 5 mg tablet (Eliquis) 5 mg PO BID 03/07/22 07/24/22 aripiprazole 15 mg tablet 7.5 mg PO DAILY 03/07/22 07/24/22 aspirin 81 mg tablet,delayed 81 mg PO DAILY 03/07/22 07/24/22 release carbamazepine 200 mg tablet 200 mg PO BID 03/07/22 07/24/22 chlorthalidone 25 mg tablet 25 mg PO DAILY 03/07/22 07/24/22 ezetimibe 10 mg tablet 10 mg PO DAILY 03/07/22 07/24/22 hydralazine 50 mg tablet 50 mg PO QID 03/07/22 07/24/22 isosorbide mononitrate 30 mg 30 mg PO DAILY 03/07/22 07/24/22 tablet,extended release 24 hr pantoprazole 40 mg tablet,delayed 40 mg PO DAILY 03/07/22 07/24/22 release polyethylene glycol 3350 17 17 g PO DAILY 03/07/22 07/25/22 gram/dose oral powder pravastatin 80 mg tablet 80 mg PO HS 03/07/22 07/24/22 pregabalin 100 mg capsule 100 mg PO QAM 03/07/22 07/24/22 pregabalin 150 mg capsule 150 mg PO HS 03/07/22 07/24/22 torsemide 20 mg tablet 20 mg PO DAILY 03/07/22 07/24/22 venlafaxine 75 mg capsule,extended 225 mg PO DAILY 03/07/22 07/24/22 release 24 hr acetaminophen 500 mg tablet 500 mg PO Q6H 06/13/22 07/24/22 albuterol sulfate 90 mcg/actuation 1 inh inhalation Q4H PRN 06/13/22 07/24/22 aerosol inhaler bronchospasm diphenhydramine HCl 50 mg capsule 50 mg PO Q6H PRN itching 06/13/22 07/24/22 (Banophen) icosapent ethyl 1 gram capsule 2 g PO BID 06/13/22 07/24/22 (Vascepa) insulin regular hum U-500 conc 500 85 unit subcut TID 06/13/22 07/24/22 unit/mL(3 mL) subcut pen (Humulin R U-500 (Conc) Insulin Kwikpen) ketoconazole 2 % shampoo 1 applic topical Q3D 06/13/22 07/24/22 loperamide 2 mg capsule 2 mg PO Q6H PRN loose stool 06/13/22 07/24/22 nystatin 100,000 unit/gram topical 1 applic topical BID PRN 06/13/22 07/24/22 powder sennosides 8.6 mg tablet (senna) 8.6 mg PO DAILY 06/13/22 07/24/22 clotrimazole 1 % topical cream 1 applic topical BID 07/25/22 07/25/22 ergocalciferol (vitamin D2) 1,250 50,000 unit PO WE@07/25/22 07/25/22 mcg (50,000 unit) capsule fluconazole 150 mg tablet 150 mg PO TUFR@07/25/22 07/25/22 gatifloxacin 0.5 % eye drops 1 drp ophthalmic (eye) QID 07/25/22 07/25/22 ketorolac 0.5 % eye drops 1 drp ophthalmic (eye) QID 07/25/22 07/25/22 prednisolone acetate 1 % eye 1 drp ophthalmic (eye) QID 07/25/22 07/25/22 drops,suspension Previous Rx's Medication Instructions Recorded amoxicillin 875 mg-potassium 1 tab PO BID 7 days #14 tabs 07/26/22 clavulanate 125 mg tablet carvedilol 25 mg tablet 25 mg PO Q12H 30 days #60 tabs 07/26/22 lisinopril 20 mg tablet 20 mg PO DAILY 30 days #60 tabs 07/26/22 cephalexin 500 mg capsule 500 mg PO TID 10 days #30 caps 09/14/22 hydrocortisone 2.5 % topical cream 1 applic topical BID PRN #30 grams 09/14/22 nystatin 100,000 unit/gram topical 1 applic topical BID #30 grams 09/14/22 powder potassium chloride 20 mEq oral 20 meq PO DAILY 3 days #3 ea 10/19/22 packet potassium chloride 20 mEq 20 meq PO DAILY #10 tabs 12/08/22 tablet,extended release Allergies Allergy/AdvReac Type Severity Reaction Status Date / Time lisinopril AdvReac Verified 11/09/22 22:58 metformin AdvReac Verified 11/09/22 22:58 Review of Systems Status of ROS: Reports: 10 or more systems reviewed and unremarkable except as noted in History and below [facility] Medical History Insulin dependent diabetes mellitus Recurrent deep vein thrombosis (DVT) ?I82.409 - Acute embolism and thrombosis of unspecified deep veins of unspecified lower extremity (ICD-10) Hypertension ?I10 - Essential (primary) hypertension (ICD-10) Coronary artery disease ?I25.10 - Atherosclerotic heart disease of [place] coronary artery without angina pectoris (ICD-10) Hypertriglyceridemia ?E78.1 - Pure hyperglyceridemia (ICD-10) Epilepsy ?G40.909 - Epilepsy, unspecified, not intractable, without status epilepticus (ICD-10) TASHI on CPAP ?G47.33 - Obstructive sleep apnea (adult) (pediatric) (ICD-10) ?Z99.89 - Dependence on other enabling machines and devices (ICD-10) Tachypnea ?R06.82 - Tachypnea, not elsewhere classified (ICD-10) Fever ?R50.9 - Fever, unspecified (ICD-10) CKD (chronic kidney disease) ?N18.9 - Chronic kidney disease, unspecified (ICD-10) Gout ?M10.9 - Gout, unspecified (ICD-10) Major depressive disorder ?F32.9 - Major depressive disorder, single episode, unspecified (ICD-10) Type 2 diabetes mellitus ?E11.9 - Type 2 diabetes mellitus without complications (ICD-10) Obesity ?E66.9 - Obesity, unspecified (ICD-10) Surgical History History of cholecystectomy ?Z90.49 - Acquired absence of other specified parts of digestive tract (ICD-10) Social History Narrative: Lives in a nursing home in [place], [place]. Sisters Brittany Suggs ([phone]) and Blanka Mcduffie ([phone]) listed as contacts and medical decision makers. Paperwork from nursing home indicates Full Code status. Highest level of school completed/degree received: 12th grade, no diploma Smoking Status: Never smoker Do you use any of these nicotine containing products: None Second hand tobacco smoke exposure: No How often do you have a drink containing alcohol: never How often do you have six or more drinks on one occasion: Never AUDIT-C Alcohol total score: 0 Non-prescribed substance use: denies use Caffeine: No service: No Exam Narrative: Exam Narrative: Vital signs as noted above. In general, an alert, nontoxic male. Breathing easily. Head: Normocephalic, atraumatic. Eyes: Pupils are equal reactive. Extraocular movements are full. Conjunctivae are normal. ENT: Mucous membranes are moist. Neck: Supple without lymphadenopathy. Heart: Regular rate and rhythm. No murmur or rub. Lungs: Clear bilaterally. Slightly decreased bilaterally, but no increased work of breathing, crackles or wheezes. Abdomen: Abdomen is obese, exam is significantly limited. He notes some tenderness of the upper abdomen and left upper quadrant without rebound guarding or rigidity. Extremities: His right leg is larger than the left although he does not have pitting edema. He says that this is baseline. There is no erythema or calf tenderness. Pulses are difficult to palpate bilaterally. Neurologic: Patient is alert and oriented to person and place. Speech is fluent. Face is symmetric. Moves all extremities equally. Affect: Normal. Skin: Warm and dry. Well perfused. Const: Vital Signs, click to edit/add: Vital Signs - 24 hr 12/07/22 23:15 12/07/22 23:27 12/07/22 23:30 Temperature 98.4 F Pulse Rate [Right Pulse Oximeter] 77 83 78 Respiratory Rate 18 18 18 Blood Pressure [Ri ght Upper Arm] 150/72 H 125/85 140/69 H Pulse Oximetry 96 96 94 Oxygen Delivery Me thod Room Air Room Air Room Air 12/07/22 23:45 12/08/22 00:01 12/08/22 00:30 Temperature Pulse Rate [Right Pulse Oximeter] 79 78 78 Respiratory Rate 18 18 18 Blood Pressure [Ri ght Upper Arm] 135/54 L 138/72 111/77 Pulse Oximetry 93 93 94 Oxygen Delivery Me thod Room Air Room Air Room Air 12/08/22 01:00 12/08/22 01:30 Temperature 98.2 F Pulse Rate [Right Pulse Oximeter] 78 76 Respiratory Rate 18 18 Blood Pressure [Ri ght Upper Arm] 127/61 122/47 L Pulse Oximetry 95 96 Oxygen Delivery Me thod Room Air Room Air Documenting provider has reviewed patient's vital signs: yes Course Course Hospital Course: An EKG on arrival showed normal sinus rhythm, ventricular rate of 82 beats per minute. He has a first-degree AV block with a ND interval 282 milliseconds. Small voltages, no acute ST segment changes noted, T-waves are unremarkable. Initial troponin is 0.02. Patient presents with abdominal and chest pain as well as headaches. He was mildly hypertensive on arrival at 150/72, normalized without intervention. Troponin was negative, he has had ongoing symptoms for a couple of days. D-dimer was also negative. I did inflammatory markers including CRP and sed rate primarily due to the headache, his sed rate is elevated at 63, but looking back through his records he has had an elevated sed rate since at least 2016, so the significance of this in terms of his headache which is behind his eyes and bitemporal, is unclear. I do not see evidence on his EKG of pericarditis. His lipase and LFTs are fairly unremarkable. AST is 37, ALT normal, alk-phos and bilirubin normal. Metabolic panel is notable mostly for a low potassium of 2.9, this is been a problem for him in the past as well. I did give him 50 mEq of potassium chloride here and will discharge him on potassium supplementation. His blood sugars elevated at 298. D-dimer was normal at 0.4, I do not think his symptoms represent dissection or PE. CBC is unremarkable. He does have a history of gastroesophageal reflux, takes pantoprazole daily. I gave him an IV dose here. Overall, I am not finding anything worrisome on his workup here. He has been eager to go home for quite some time now. My suspicion for acute coronary syndrome is low given ongoing symptoms for 2 days and a negative troponin. Portable chest x-ray shows cardiomegaly which is stable by my review. Radiology review is likewise no active findings, stable cardiomegaly. He does need to be on some potassium replacement. The sed rate elevation is of uncertain significance. He actually has an appointment with his primary doctor tomorrow, so I have encouraged him to discuss all of this with his primary doctor so that anything that requires further outpatient follow-up can be taking care of. I think his medications probably should be reviewed as they may be contributing to his hypokalemia. Vital Signs Vital signs: Initial Vital Signs Temperature Source Temporal Artery Scan 12/07/22 23:15 Pulse Rate 77 12/07/22 23:15 Respiratory Rate 18 12/07/22 23:15 Respiratory Effort Normal, Spontaneous, Non-Labored 12/07/22 23:15 Respiratory Depth Normal 12/07/22 23:15 Respiratory Pattern Normal 12/07/22 23:15 Blood Pressure 150/72 H 12/07/22 23:15 Blood Pressure Mean 98 12/07/22 23:15 Blood Pressure Position Sitting 12/07/22 23:15 Pulse Oximetry 96 12/07/22 23:15 Oxygen Delivery Method Room Air 12/07/22 23:15 Vital Signs Pulse Rate 77 12/07/22 23:15 Respiratory Rate 18 12/07/22 23:15 Blood Pressure 150/72 H 12/07/22 23:15 Pulse Oximetry 96 12/07/22 23:15 Oxygen Delivery Method Room Air 12/07/22 23:15 Temperature 98.2 F 12/08/22 01:00 Pulse Rate 76 12/08/22 01:30 Respiratory Rate 18 12/08/22 01:30 Blood Pressure 122/47 L 12/08/22 01:30 Pulse Oximetry 96 12/08/22 01:30 Oxygen Delivery Method Room Air 12/08/22 01:30 Medical Decision Making Lab Data Labs: Lab Results 12/07/22 12/07/22 12/07/22 Range/Units 23:10 23:10 23:10 WBC 5.47 (4.50-11.00) K/uL RBC 4.52 (4.30-5.90) m/uL Hgb 13.2 L (13.5-17.5) gm/dL Hct 38.1 (37.0-53.0) % MCV 84 (80-100) fL MCH 29 (26-34) pg MCHC 35 (32-36) gm/dL RDW Coeff of [place] 14.0 (11.5-15.5) % Plt Count 184 (140-440) K/uL Neut % (Auto) 43.8 (42.0-72.0) % Lymph % (Auto) 43.9 (20-44) % [place] % (Auto) 7.3 (0.0-11.0) % Eos % (Auto) 4.4 (0.0-7.0) % Baso % (Auto) 0.4 (0.0-3.0) % Neut # (Auto) 2.40 (1.7-7.0) K/uL Lymph # (Auto) 2.40 (0.90-2.90) K/uL [place] # (Auto) 0.40 (0.00-0.90) K/UL Eos # (Auto) 0.24 (0.00-0.50) K/uL Baso # (Auto) 0.02 (0.00-0.30) K/uL Abs Immat Gran (auto) 0.01 (0.00-0.30) K/uL Imm/Tot Granulo (auto) 0.2 % ESR 63 H (2-15) mm/hr D-Dimer Quant (PE/DVT) 0.40 (0.00-0.50) ug/ml Sodium 137 Cancelled (135-149) mmol/L Potassium 2.9 L* Cancelled (3.6-5.1) mmol/L Chloride 94 L (96-114) mmol/L Carbon Dioxide (20-32) mmol/L BUN (7-30) mg/dL Creatinine (0.5-1.5) mg/dL Estimated Creat Clear Estimated GFR ml/min Glucose (60-115) mg/dL Calcium (8.4-10.6) mg/dL Total Bilirubin (0.1-1.5) mg/dL Direct Bilirubin (0.0-0.5) mg/dL AST (12-35) U/L ALT (4-50) U/L Alkaline Phosphatase (40-150) U/L C-Reactive Protein (0.5-1.0) mg/dL NT-Pro-B Natriuret Pep pg/mL Total Protein (6.0-8.3) g/dL Albumin (3.3-5.0) g/dL Lipase (23-300) U/L SARS-CoV-2 (PCR) (Negative) POC Troponin I (0.01-0.04) ng/ml 12/07/22 12/07/22 12/07/22 Range/Units 23:10 23:10 23:10 WBC (4.50-11.00) K/uL RBC (4.30-5.90) m/uL Hgb (13.5-17.5) gm/dL Hct (37.0-53.0) % MCV (80-100) fL MCH (26-34) pg MCHC (32-36) gm/dL RDW Coeff of [place] (11.5-15.5) % Plt Count (140-440) K/uL Neut % (Auto) (42.0-72.0) % Lymph % (Auto) (20-44) % [place] % (Auto) (0.0-11.0) % Eos % (Auto) (0.0-7.0) % Baso % (Auto) (0.0-3.0) % Neut # (Auto) (1.7-7.0) K/uL Lymph # (Auto) (0.90-2.90) K/uL [place] # (Auto) (0.00-0.90) K/UL Eos # (Auto) (0.00-0.50) K/uL Baso # (Auto) (0.00-0.30) K/uL Abs Immat Gran (auto) (0.00-0.30) K/uL Imm/Tot Granulo (auto) % ESR (2-15) mm/hr D-Dimer Quant (PE/DVT) (0.00-0.50) ug/ml Sodium (135-149) mmol/L Potassium (3.6-5.1) mmol/L Chloride Cancelled (96-114) mmol/L Carbon Dioxide 32 Cancelled (20-32) mmol/L BUN 33 H Cancelled (7-30) mg/dL Creatinine 1.2 (0.5-1.5) mg/dL Estimated Creat Clear Estimated GFR ml/min Glucose (60-115) mg/dL Calcium (8.4-10.6) mg/dL Total Bilirubin (0.1-1.5) mg/dL Direct Bilirubin (0.0-0.5) mg/dL AST (12-35) U/L ALT (4-50) U/L Alkaline Phosphatase (40-150) U/L C-Reactive Protein (0.5-1.0) mg/dL NT-Pro-B Natriuret Pep pg/mL Total Protein (6.0-8.3) g/dL Albumin (3.3-5.0) g/dL Lipase (23-300) U/L SARS-CoV-2 (PCR) (Negative) POC Troponin I (0.01-0.04) ng/ml 12/07/22 12/07/22 12/07/22 Range/Units 23:10 23:10 23:10 WBC (4.50-11.00) K/uL RBC (4.30-5.90) m/uL Hgb (13.5-17.5) gm/dL Hct (37.0-53.0) % MCV (80-100) fL MCH (26-34) pg MCHC (32-36) gm/dL RDW Coeff of [place] (11.5-15.5) % Plt Count (140-440) K/uL Neut % (Auto) (42.0-72.0) % Lymph % (Auto) (20-44) % [place] % (Auto) (0.0-11.0) % Eos % (Auto) (0.0-7.0) % Baso % (Auto) (0.0-3.0) % Neut # (Auto) (1.7-7.0) K/uL Lymph # (Auto) (0.90-2.90) K/uL [place] # (Auto) (0.00-0.90) K/UL Eos # (Auto) (0.00-0.50) K/uL Baso # (Auto) (0.00-0.30) K/uL Abs Immat Gran (auto) (0.00-0.30) K/uL Imm/Tot Granulo (auto) % ESR (2-15) mm/hr D-Dimer Quant (PE/DVT) (0.00-0.50) ug/ml Sodium (135-149) mmol/L Potassium (3.6-5.1) mmol/L Chloride (96-114) mmol/L Carbon Dioxide (20-32) mmol/L BUN (7-30) mg/dL Creatinine Cancelled (0.5-1.5) mg/dL Estimated Creat Clear 56.86 Cancelled Estimated GFR 68 Cancelled ml/min Glucose 298 H (60-115) mg/dL Calcium (8.4-10.6) mg/dL Total Bilirubin (0.1-1.5) mg/dL Direct Bilirubin (0.0-0.5) mg/dL AST (12-35) U/L ALT (4-50) U/L Alkaline Phosphatase (40-150) U/L C-Reactive Protein (0.5-1.0) mg/dL NT-Pro-B Natriuret Pep pg/mL Total Protein (6.0-8.3) g/dL Albumin (3.3-5.0) g/dL Lipase (23-300) U/L SARS-CoV-2 (PCR) (Negative) POC Troponin I (0.01-0.04) ng/ml 12/07/22 12/07/22 12/08/22 Range/Units 23:10 23:10 00:00 WBC (4.50-11.00) K/uL RBC (4.30-5.90) m/uL Hgb (13.5-17.5) gm/dL Hct (37.0-53.0) % MCV (80-100) fL MCH (26-34) pg MCHC (32-36) gm/dL RDW Coeff of [place] (11.5-15.5) % Plt Count (140-440) K/uL Neut % (Auto) (42.0-72.0) % Lymph % (Auto) (20-44) % [place] % (Auto) (0.0-11.0) % Eos % (Auto) (0.0-7.0) % Baso % (Auto) (0.0-3.0) % Neut # (Auto) (1.7-7.0) K/uL Lymph # (Auto) (0.90-2.90) K/uL [place] # (Auto) (0.00-0.90) K/UL Eos # (Auto) (0.00-0.50) K/uL Baso # (Auto) (0.00-0.30) K/uL Abs Immat Gran (auto) (0.00-0.30) K/uL Imm/Tot Granulo (auto) % ESR (2-15) mm/hr D-Dimer Quant (PE/DVT) (0.00-0.50) ug/ml Sodium (135-149) mmol/L Potassium (3.6-5.1) mmol/L Chloride (96-114) mmol/L Carbon Dioxide (20-32) mmol/L BUN (7-30) mg/dL Creatinine (0.5-1.5) mg/dL Estimated Creat Clear Estimated GFR ml/min Glucose Cancelled (60-115) mg/dL Calcium 8.6 Cancelled (8.4-10.6) mg/dL Total Bilirubin 0.5 (0.1-1.5) mg/dL Direct Bilirubin 0.3 (0.0-0.5) mg/dL AST 37 H (12-35) U/L ALT 26 (4-50) U/L Alkaline Phosphatase 97 (40-150) U/L C-Reactive Protein 1.5 H (0.5-1.0) mg/dL NT-Pro-B Natriuret Pep 76 pg/mL Total Protein 6.5 (6.0-8.3) g/dL Albumin 3.7 (3.3-5.0) g/dL Lipase 75 (23-300) U/L SARS-CoV-2 (PCR) (Negative) POC Troponin I 0.01 (0.01-0.04) ng/ml 12/08/22 Range/Units 00:35 WBC (4.50-11.00) K/uL RBC (4.30-5.90) m/uL Hgb (13.5-17.5) gm/dL Hct (37.0-53.0) % MCV (80-100) fL MCH (26-34) pg MCHC (32-36) gm/dL RDW Coeff of [place] (11.5-15.5) % Plt Count (140-440) K/uL Neut % (Auto) (42.0-72.0) % Lymph % (Auto) (20-44) % [place] % (Auto) (0.0-11.0) % Eos % (Auto) (0.0-7.0) % Baso % (Auto) (0.0-3.0) % Neut # (Auto) (1.7-7.0) K/uL Lymph # (Auto) (0.90-2.90) K/uL [place] # (Auto) (0.00-0.90) K/UL Eos # (Auto) (0.00-0.50) K/uL Baso # (Auto) (0.00-0.30) K/uL Abs Immat Gran (auto) (0.00-0.30) K/uL Imm/Tot Granulo (auto) % ESR (2-15) mm/hr D-Dimer Quant (PE/DVT) (0.00-0.50) ug/ml Sodium (135-149) mmol/L Potassium (3.6-5.1) mmol/L Chloride (96-114) mmol/L Carbon Dioxide (20-32) mmol/L BUN (7-30) mg/dL Creatinine (0.5-1.5) mg/dL Estimated Creat Clear Estimated GFR ml/min Glucose (60-115) mg/dL Calcium (8.4-10.6) mg/dL Total Bilirubin (0.1-1.5) mg/dL Direct Bilirubin (0.0-0.5) mg/dL AST (12-35) U/L ALT (4-50) U/L Alkaline Phosphatase (40-150) U/L C-Reactive Protein (0.5-1.0) mg/dL NT-Pro-B Natriuret Pep pg/mL Total Protein (6.0-8.3) g/dL Albumin (3.3-5.0) g/dL Lipase (23-300) U/L SARS-CoV-2 (PCR) Negative SARS-CoV-2 (Negative) POC Troponin I (0.01-0.04) ng/ml Discharge Plan Discharge Clinical Impression: Headache, Chest pain, Hypokalemia Patient Disposition: Home w/ Parent or Adult Condition: Improved Instructions: Chest Pain (DC), Potassium Content of Foods List (ED), Hypokalemia (ED) Additional Instructions: Potassium supplementation is recommended as your potassium today was 2.9. I would recommend reviewing this with your primary doctor, as this is often medication related. I did not find a clear cause for your chest pain, abdominal pain or headache. You do have an elevated sedimentation rate, and have had this for quite some time, the significance of this is unclear. I would discuss this further with your primary doctor. Continue your current medications for now. Prescriptions: New potassium chloride 20 mEq tablet extended release 20 meq PO DAILY Qty: 10 2RF No Action amlodipine 10 mg tablet 10 mg PO DAILY aripiprazole 15 mg tablet 7.5 mg PO DAILY Eliquis 5 mg tablet 5 mg PO BID aspirin 81 mg tablet,delayed release (DR/EC) 81 mg PO DAILY venlafaxine 75 mg capsule,extended release 24hr 225 mg PO DAILY torsemide 20 mg tablet 20 mg PO DAILY isosorbide mononitrate 30 mg tablet extended release 24 hr 30 mg PO DAILY chlorthalidone 25 mg tablet 25 mg PO DAILY carbamazepine 200 mg tablet 200 mg PO BID pravastatin 80 mg tablet 80 mg PO HS pantoprazole 40 mg tablet,delayed release (DR/EC) 40 mg PO DAILY hydralazine 50 mg tablet 50 mg PO QID Patient Comments: 08,12,16,20 ezetimibe 10 mg tablet 10 mg PO DAILY pregabalin 100 mg capsule 100 mg PO QAM pregabalin 150 mg capsule 150 mg PO HS polyethylene glycol 3350 17 gram/dose powder 17 g PO DAILY Rx Instructions: AND TWICE DAILY NEEDED sennosides [senna] 8.6 mg tablet 8.6 mg PO DAILY ketoconazole 2 % shampoo 1 applic TOPICAL Q3D diphenhydramine HCl [Banophen] 50 mg capsule 50 mg PO Q6H PRN (Reason: itching) loperamide 2 mg capsule 2 mg PO Q6H PRN (Reason: loose stool) acetaminophen 500 mg tablet 500 mg PO Q6H nystatin 100,000 unit/gram powder 1 applic TOPICAL BID PRN albuterol sulfate 90 mcg/actuation HFA aerosol inhaler 1 inh INHALATION Q4H PRN (Reason: bronchospasm) icosapent ethyl [Vascepa] 1 gram capsule 2 g PO BID Humulin R U-500 (Conc) Kwikpen 500 unit/mL (3 mL) insulin pen 85 unit SUBCUT TID clotrimazole 1 % cream 1 applic topical BID Rx Instructions: GROIN,PERIAREA AND ABDOMIN fluconazole 150 mg tablet 150 mg PO TUFR@09 gatifloxacin 0.5 % drops 1 drp ophthalmic (eye) QID ketorolac 0.5 % drops 1 drp ophthalmic (eye) QID Rx Instructions: STOP DATE 08/11/22 prednisolone acetate 1 % drops,suspension 1 drp ophthalmic (eye) QID Rx Instructions: STOP DATE 08/12/22 ergocalciferol (vitamin D2) 1,250 mcg (50,000 unit) capsule 50,000 unit PO WE@09 carvedilol 25 mg Tablet 25 mg PO Q12H 30 Days Qty: 60 0RF lisinopril 20 mg Tablet 20 mg PO DAILY 30 Days Qty: 60 0RF amoxicillin-pot clavulanate 875-125 mg tablet 1 tab PO BID 7 Days Qty: 14 0RF nystatin 100,000 unit/gram powder 1 applic topical BID Qty: 30 1RF hydrocortisone 2.5 % cream 1 applic topical BID PRNQty: 30 1RF cephalexin 500 mg capsule 500 mg PO TID 10 Days Qty: 30 0RF potassium chloride 20 mEq packet 20 meq PO DAILY 3 Days Qty: 3 0RF Follow Up/Referrals: Provider,Not a Local [Primary Care Provider] - Stand Alone Forms: [facility] Info Instructions
[2022-12-08 00:39] LABS: Troponin, Point-of-Care* 0.01 ng/ml (0.01-0.04)
[2022-12-08] MEDS: POTASSIUM BICARB 25 MEQ EFFERVESCENT TAB 50 MEQ PO (00:55)
--- OUTSIDE RECORDS SUMMARY | 2022-12-08 00:59 | XMS_ITS | CCD ---
Author Name Unknown Organization Unknown Care Team Providers Care Negotiator Name Role Phone Tapan Shirley PA-C Primary Care Provider Unavailabl e Tapan Shirley PA-C Chronic Care Management Unavaila ble Summary Purpose DataExchange Insurance Providers Payer name Policy type / Coverage type Covered democrat ID Effective Begin Date Effective End Date Medicare OK Medicare Part B [id number] Unknown Unknown Medicaid [place] Medicare Part B [id number] Unknown Unknown Family history Sister Brittany Suggs [...] Longterm 09/03/[address]: 7622191 Non-Smoker / No History of Smoking 09/02/[address]: 623124045 No Alcohol Consum ption 09/02/2020 Allergies, Adverse Reactions, Alerts Substance Reaction Codes Entered Date Inactivated Date Status LISINOPRIL RxNorm: 65310 02/12/2020 No Inactive Da te Active Metformin HCl Unknown 02/12/2020 No Inactive Cristiano e Active Problems Condition Codes Effective Dates Condition St atus Hyperlipidemia associated wi th type 2 diabetes mellitus ICD-10: E11.69 ICD-9: 250.80 11/10/2022 Active Hypertensive heart disease w ithout heart failure ICD-10: I11.9 ICD-9: 402.90 11/10/2022 Active Onychogryposis ICD-10: L60.2 ICD-9: 703.8 11/10/2022 Active Paraparesis of both lower limbs ICD-10: G82.20 ICD-9: 344.1 11/10/2022 Active Stage 2 chronic kidney disea se due to type 2 diabetes mellitus ICD-10: E11.22 ICD-9: 250.40 11/10/2022 Active Type 2 diabetes mellitus wit h diabetic polyneuropathy, with long-term current use of insulin ICD-10: E11.42 ICD-9: 250.60 11/10/2022 Active 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 ICD-10: K59.01 ICD-9: 564.01 10/06/2022 Active Lower extremity edema ICD-10: R60.0 ICD-9: 782.3 10/06/2022 Active Pain of right heel ICD-10: M79.671 ICD-9: 729.5 10/06/2022 Active High risk medication use ICD-10: Z79.899 ICD-9: V58.69 09/15/2022 Active Recurrent major depressive disorder, in partial remission ICD-10: F33.41 ICD-9: 296.35 09/15/2022 Active Amputated toe of right foot ICD-10: S98. 131A ICD-9: 895.0 08/11/2022 Active Coronary artery disease invo lving council coronary artery of council heart, angina presence unspecified ICD-10: I25.10 ICD-9: 414.01 08/11/2022 Active Pre-op evaluation ICD-10: Z01.818 ICD-9: [...] state ICD-10: D68.59 ICD-9: 289.81 02/10/2022 Active PVD (peripheral vascular disease) ICD-10 : I73.9 ICD-9: 443.9 02/10/2022 Active Depression ICD-10: F32.9 ICD-9: 311 02/10/2022 Resolved DVT (deep venous thrombosis) ICD-10: I82 .409 ICD-9: 453.40 02/10/2022 Resolved Encounter for immunization ICD-10: Z23 ICD-9: V03.89 02/10/2022 Resolved halfway (current) use of insulin ICD-10: Z79.4 02/10 [...] Instructions nystatin 100,000 unit/gram topical powder RxNorm: 103138 APPLY TO AFFECTED AREAS TOPICALLY 2 TIMES DAILY 11/21/19 024 Active Nystop 100,000 unit/gram topical powder RxNorm: 529354 Apply to abd folds, under breasts and L side of groin Topical BID x 14 days, then BID PRN 11/20/19 23 023 Inactive dx: yeast dermatitis Bengay Ultra Strength 4 %-30 %-10 % topical cream RxNorm: 930069 Apply 1 Gram(s) Topical QID PRN to feet and legs for neuropathic pain 11/11/19 23 024 Active hydrocortisone 2.5 % topical cream RxNorm: 566210 Apply 1/2 Gram(s) Topical BID as needed 11/10/19 No Stop Date Active clotrimazole 1 % topical cream RxNorm: 765365 Apply 1/2 Gram(s) Topical BID Apply to affected areas of groin, periarea, and abdominal topically 2 times daily 11/10/19 023 Inactive Levemir FlexPen 100 unit/mL (3 mL) solution subcutaneous insulin pen RxNorm: 732264 Inject 30 Unit(s) Subcutaneous BID 10/07/19 024 Active Humulin R U-500 (Concentrated) Insulin 500 unit/mL subcutaneous soln RxNorm: 036952 Inject 100 Unit(s) Subcutaneous TID 10/07/19 024 Active Ozempic 0.25 mg or 0.5 mg (2 mg/3 mL) subcutaneous pen injector RxNorm: 0298111 Inject 1/2 Milligram(s) Subcutaneous QW once a week 10/07/19 024 Active aripiprazole 15 mg tablet RxNorm: 815134 1/2 TAB (7.5MG) ORALLY DAILY (DX:MAJOR DEPRESSIVE DISORDER) 09/23/19 023 Active Accu-Chek Guide test strips RxNorm: Use 1 Test Strip QID 09/15/19 23 024 Active ok to substitute with any covered alternative test strip Lancets,Thin 28 gauge RxNorm: Use 1 as directed QID 09/15/19 23 024 Active torsemide 20 mg tablet RxNorm: 252616 Take 1 Tablet(s) Oral BID 09/09/19 024 Active d/c once daily dosing carvedilol 25 mg tablet RxNorm: 133518 Take 1 Tablet(s) Oral QD 08/25/19 23 024 Active pregabalin 150 mg capsule RxNorm: 540707 1 Capsule(s) Oral HS at bed time 08/18/19 023 Active pregabalin 100 mg capsule RxNorm: 131017 1 Capsule(s) Oral QAM every morning 08/18/19 023 Active carvedilol 25 mg tablet RxNorm: 787794 1 Tablet(s) Oral QD 07/28/19 23 023 Inactive lisinopril 20 mg tablet RxNorm: 694804 Give 1 Tablet(s) Oral QD 07/28/19 23 023 Inactive Lyrica 150 mg capsule RxNorm: 011363 Take 1 Capsule(s) Oral QHS every night at bedtime 07/19/19 23 023 Inactive d/c 100mg dose Diflucan 150 mg tablet RxNorm: 894354 Take 1 Tablet(s) Oral QD repeat on day 3 and 6 07/19/19 23 023 Inactive pregabalin 100 mg capsule RxNorm: 401233 Take 1 Capsule(s) Oral QAM every morning 07/19/19 023 Inactive gatifloxacin 0.5 % eye drops RxNorm: 043198 Instill 1 Drop(s) as directed TID Instill 1 drop in to affected eye(s) starting 1 day prior to surgery and continue until gone (do not exceed 4 weeks). 07/13/19 23 023 Inactive carvedilol 25 mg tablet RxNorm: 556390 2 Tablet(s) Oral BID 07/13/19 23 023 Inactive Humulin R Regular U-100 Insulin 100 unit/mL injection solution RxNorm: 614888 85 Unit(s) Injection TID 07/13/19 23 023 Inactive ketorolac 0.5 % eye drops RxNorm: 732876 Instill 1 Drop(s) as directed QID Instill 1 drop into affected eye(s) 4 times daily starting 1 day prior to surgery and continue until gone (do not exceed 4 weeks). 07/13/19 23 023 Inactive Diflucan 150 mg tablet RxNorm: 394155 Take 1 Tablet(s) Oral QD repeat on day 3 and 6 06/30/19 23 023 Inactive Accu-Chek Guide test strips RxNorm: Use 1 Test Strip QID Use 1 test strip to monitor blood glucose 4 times daily and as needed. Dx:E11.42. 06/23/19 23 023 Inactive ok to substitute with any covered alternative test strip dextromethorphan-gu aifenesin 10 mg-100 mg/5 mL oral liquid RxNorm: 252964 Take 10 Milliliter(s) Oral every 4 hours as needed for cough 06/19/19 23 023 Inactive dextromethorphan-gu aifenesin 10 mg-100 mg/5 mL oral liquid RxNorm: 370526 Take 10 Milliliter(s) Oral every 4 hours as needed for cough 06/19/19 023 Inactive Lyrica 150 mg capsule RxNorm: 906863 Take 1 Capsule(s) Oral QHS every night at bedtime 06/18/19 023 Inactive d/c 100mg dose aripiprazole 15 mg tablet RxNorm: 839246 1/2 TAB (7.5MG) ORALLY DAILY (DX:MAJOR DEPRESSIVE DISORDER) 06/05/19 023 Inactive pregabalin 100 mg capsule RxNorm: 212944 1 Capsule(s) Oral QAM every morning 06/02/19 023 Inactive Banophen 50 mg capsule RxNorm: 5101951 Take 1 Capsule(s) Oral Q6H every 6 hours as needed 05/19/19 23 No Stop Date Active Novolog Flexpen U-100 Insulin aspart 100 unit/mL (3 mL) subcutaneous RxNorm: 8901459 Inject 10 Unit(s) Subcutaneous QHS every night at bedtime with nighttime snack 04/08/20 022 Inactive Novolog Flexpen U-100 Insulin aspart 100 unit/mL (3 mL) subcutaneous RxNorm: 7165636 Inject 42 Unit(s) Subcutaneous TID in addition to sliding scale 04/08/20 022 Inactive d/c 36u albuterol sulfate HFA 90 mcg/actuation aerosol inhaler RxNorm: 3516819 Take 2 Puff(s) Inhalation Q4H every four hours as needed as needed for SOB, cough, or wheezing 04/07/20 030 Active Banophen 50 mg capsule RxNorm: 8578929 Take 1 Capsule(s) Oral Q6H every 6 hours as needed 04/06/20 023 Inactive diphenhydramine 50 mg tablet RxNorm: 4650560 Take 1 Tablet(s) Oral Q6H every 6 hours as needed 04/06/20 22 022 Inactive diphenhydramine 50 mg tablet RxNorm: 5801213 1 Tablet(s) Oral Q6H every 6 hours as needed 04/06/20 022 Inactive Abilify 15 mg tablet RxNorm: 334019 1/2 Tablet(s) Oral QD 03/10/20 22 023 Inactive Shingrix (PF) 50 mcg/0.5 mL intramuscular suspension, kit RxNorm: 8469725 Administer 1/2 Milliliter(s) Intramuscular QD one time shingrix step 2 ( step 1 given 11/04/21) WITH needle - Nursing please administer upon arrival and once administered post a bridge message 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, 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, 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, and lot# so we can update [facility] 02/18/20 022 Inactive dispense with needle Shingrix (PF) 50 mcg/0.5 mL intramuscular suspension, kit RxNorm: 4591666 Administer 1/2 Milliliter(s) Intramuscular QD one time shingrix step 2 ( step 1 given 11/04/21) WITH needle - Nursing please administer upon arrival and once administered post a bridge message with 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, 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, 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, and lot# so we can update [facility] 02/18/20 22 022 Inactive dispense with needle acetaminophen 500 mg tablet RxNorm: 903437 Take 1 Tablet(s) Oral TID 01/08/20 22 023 Active d/c PRN order polyethylene glycol 3350 17 gram/dose oral powder RxNorm: 268734 Take 17=1 capful Gram(s) Oral QD mix with 4-8oz of liquid 01/08/20 22 023 Active take this in addition to BID prn order Lyrica 100 mg capsule RxNorm: 610770 Take 1 Capsule(s) Oral QAM every morning 01/08/20 22 022 Inactive d/c 50mg dose Lyrica 150 mg capsule RxNorm: 941289 Take 1 Capsule(s) Oral QHS every night at bedtime 01/08/20 22 023 Inactive d/c 100mg dose Abilify 5 mg tablet RxNorm: 487226 Take 1 Tablet(s) Oral QD take 1 tab po QD #30 refill 5 dx: MDD 12/12/19 22 022 Inactive Abilify 5 mg tablet RxNorm: 445844 Take 1 Tablet(s) Oral QD take 1 tab po QD #30 refill 5 dx: MDD 12/12/19 22 022 Inactive chlorthalidone 25 mg tablet RxNorm: 840810 Take 1 Tablet(s) Oral QAM every morning 12/10/19 22 023 Inactive Novolog Flexpen U-100 Insulin aspart 100 unit/mL (3 mL) subcutaneous RxNorm: 8109226 Inject 42 Unit(s) Subcutaneous TID in addition to sliding scale 12/10/19 22 022 Inactive d/c 36u pregabalin 50 mg capsule RxNorm: 257134 Take 1 Capsule(s) Oral QAM every morning 11/12/19 22 022 Inactive tetanus-diphtheria toxoids-Td 2 Lf unit-2 Lf unit/0.5 mL IM suspension RxNorm: 139 Take 0.5 Miscellaneous Intramuscular 11/12/19 22 022 Inactive need tdap - nursing to administer upon arrival pregabalin 50 mg capsule RxNorm: 766978 Take 1 Capsule(s) Oral QAM every morning 10/16/19 22 022 Inactive pregabalin 50 mg capsule RxNorm: 652308 Take 1 Capsule(s) Oral QAM every morning 10/16/19 22 022 Inactive pregabalin 50 mg capsule RxNorm: 055067 1 Capsule(s) Oral QAM every morning 10/15/19 22 022 Inactive Shingrix (PF) 50 mcg/0.5 mL intramuscular suspension, kit RxNorm: 9685061 Administer 1/2 Milliliter(s) Intramuscular one time Nursing please administer upon arrival and once administered post a bridge message with 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 10/09/19 22 Inactive shingrix step 1 cholecalciferol (vitamin D3) 1,250 mcg (50,000 unit) capsule RxNorm: 428576 Take 1 Capsule(s) Oral QW once a [...] aspart 100 unit/mL (3 mL) subcutaneous RxNorm: 1411467 Inject 10 Unit(s) Subcutaneous QHS every night at bedtime with nighttime snack 10/08/19 22 Inactive Shingrix (PF) 50 mcg/0.5 mL intramuscular suspension, kit RxNorm: 7047936 ADMINISTER 2-DOSE SERIES PER CDC GUIDELINES 10/08/19 22 022 Active Shingrix (PF) 50 mcg/0.5 mL intramuscular suspension, kit RxNorm: 2055944 ADMINISTER 2-DOSE SERIES PER CDC GUIDELINES 10/08/19 22 Inactive Novolog Flexpen U-100 Insulin aspart 100 unit/mL (3 mL) subcutaneous RxNorm: 7723135 Inject 36 Unit(s) Subcutaneous TID in addition to sliding scale 10/08/19 22 Inactive Novofine Autocover 30 gauge x 1/3 needle RxNorm: Use 1 Miscellaneous UD as directed Use 1 needle as directed to administer insulin 5 times a day Dx:E11.42. 10/03/19 22 022 Inactive ok to substitute with any covered alternative pen needle benzoyl peroxide 10 % topical cleanser RxNorm: 300080 Apply 1 Application Topical QD apply to face, wash rinse and dry once daily (may change to QOD if drying) 08/19/19 22 022 Inactive (%covered by insurance) #60ml refill 11 dx: acne benzoyl peroxide 10 % topical cleanser RxNorm: 617130 Apply 1 Application Topical QD apply to face, wash rinse and dry once daily (may change to QOD if drying) 08/19/19 22 022 Inactive (%covered by insurance) #60ml refill 11 dx: acne benzoyl peroxide 10 % topical cleanser RxNorm: 204083 Apply 1 Application Topical QD apply to face, wash rinse and dry once daily (may change to QOD if drying) 08/19/19 22 022 Inactive (%covered by insurance) #60ml refill 11 dx: acne Lyrica 50 mg capsule RxNorm: 444032 Take 1 Capsule(s) Oral QAM every morning Take 1 capsule by mouth once daily 08/19/19 022 Inactive benzoyl peroxide 10 % topical cleanser RxNorm: 049692 Apply 1 Application Topical QD apply to face, wash rinse and dry once daily (may change to QOD if drying) 08/19/19 22 022 Inactive (%covered by insurance) #60ml refill 11 dx: acne Lyrica 100 mg capsule RxNorm: 996896 Take 1 Capsule(s) Oral QHS every night at bedtime Take 1 capsule by mouth once daily at bedtime 08/19/19 22 022 Inactive Lyrica 100 mg capsule RxNorm: 412864 Take 1 Capsule(s) Oral QHS every night at bedtime Take 1 capsule by mouth once daily at bedtime 08/16/19 022 Inactive Lyrica 50 mg capsule RxNorm: 155722 Take 1 Capsule(s) Oral QAM every morning Take 1 capsule by mouth once daily 08/16/19 22 022 Inactive Levemir FlexTouch U-100 Insulin 100 unit/mL (3 mL) subcutaneous pen RxNorm: 145709 Inject 86 Unit(s) Subcutaneous BID 08/05/19 22 022 Inactive d/c 83units BID Lyrica 100 mg capsule RxNorm: 957101 Take 1 Capsule(s) Oral QHS every night at bedtime Take 1 capsule by mouth once daily at bedtime 07/14/19 22 Inactive Lyrica 50 mg capsule RxNorm: 409803 Take 1 Capsule(s) Oral QAM every morning Take 1 capsule by mouth once daily 07/14/19 22 Inactive Levemir FlexTouch U-100 Insulin 100 unit/mL (3 mL) subcutaneous pen RxNorm: 420599 Inject 83 Unit(s) Subcutaneous BID 07/08/19 22 [...] 30 mg tablet,extended release 24 hr RxNorm: 017064 Take 1 Tablet(s) Oral QD 05/05/20 No Stop Date Active hydralazine 50 mg tablet RxNorm: 123713 Take 1 Tablet(s) Oral QID 05/05/20 022 Inactive venlafaxine ER 225 mg tablet,extended release 24 hr RxNorm: 340691 Take 1 Tablet(s) Oral QD 05/05/20 Inactive venlafaxine ER 225 mg tablet,extended release 24 hr RxNorm: 836741 Take 1 Tablet(s) Oral QD 05/05/20 022 Inactive hydralazine 50 mg tablet RxNorm: 855428 Take 1 Tablet(s) Oral QID 05/05/20 Inactive aspirin 81 mg tablet,delayed release RxNorm: 113031 Take 1 Tablet(s) Oral QD 03/31/20 Inactive Zetia 10 mg tablet RxNorm: 823411 Take 1 Tablet(s) Oral QD 03/31/20 Inactive Vitamin D2 1,250 mcg (50,000 unit) capsule RxNorm: 1870012 Take 1 Capsule(s) Oral QW once a week x 12 weeks 03/31/20 Inactive Vitamin D2 1,250 mcg (50,000 unit) capsule RxNorm: 2510925 Take 1 Capsule(s) Oral QW once a week 03/31/20 Inactive Zetia 10 mg tablet RxNorm: 732810 Take 1 Tablet(s) Oral QD 03/31/20 Inactive hydralazine 25 mg tablet RxNorm: 768626 Take 1 Tablet(s) Oral QID 03/31/20 Inactive hydralazine 25 mg tablet RxNorm: 194646 Take 1 Tablet(s) Oral QID 03/31/20 021 Inactive hydralazine 10 mg tablet RxNorm: 630223 Take 1 Tablet(s) Oral QID 10/18/20 21 11/14/2 021 Inactive cephalexin 500 mg tablet RxNorm: 433155 Take 1 Tablet(s) Oral QID 02/27/20 021 Inactive cephalexin 500 mg tablet RxNorm: 444859 Take 1 Tablet(s) Oral QID 02/27/20 021 Inactive lisinopril 40 mg tablet RxNorm: 933117 Take 1 Tablet(s) Oral QD 02/11/20 023 Inactive Eliquis 5 mg tablet RxNorm: 1882074 Take 1 Tablet(s) Oral BID 01/05/20 21 022 Inactive Eliquis 5 mg tablet RxNorm: 6037507 Take 2 Tablet(s) Oral QD 01/01/20 21 021 Inactive Lyrica 50 mg capsule RxNorm: 662432 Take 1 Capsule(s) Oral QAM every morning 12/24/19 021 Inactive Lyrica 100 mg capsule RxNorm: 432539 Take 1 Capsule(s) Oral QHS every night at bedtime 12/24/19 021 Inactive clotrimazole 1 % topical cream RxNorm: 715593 Apply to right foot and toes Topical BID 12/04/19 21 023 Inactive metoprolol succinate ER 200 mg tablet,extended release 24 hr RxNorm: 968164 Take 1 Tablet(s) Oral QD 12/04/19 023 Inactive ciprofloxacin 500 mg tablet RxNorm: 817878 Take 1 Tablet(s) Oral QD 11/30/19 021 Inactive DX ofloxacin otic drops Accu-Chek Guide test strips RxNorm: USE 1 TO CHECK GLUCOSE 4 TIMES DAILY AND NEEDED 11/15/19 21 023 Inactive Blood Glucose Test strips RxNorm: Use 1 Test Strip QID at PRN 11/05/19 21 023 Inactive E11.42 lisinopril 30 mg tablet RxNorm: 950711 Take 1 Tablet(s) Oral QD 10/30/19 021 Inactive lisinopril 20 mg tablet RxNorm: 213571 Take 1 Tablet(s) Oral QD 10/23/19 21 021 Inactive lisinopril 20 mg tablet RxNorm: 397503 Take 1 Tablet(s) Oral QD 10/23/19 21 Inactive lisinopril 10 mg tablet RxNorm: 073942 Take 1 Tablet(s) Oral QD 10/02/19 21 021 Inactive icosapent ethyl 1 gram capsule RxNorm: 1592535 Take 2 Capsule(s) (2 gm) Oral BID with meals 09/12/19 022 Inactive Okay to dispense one 2gm tab if you have that available. icosapent ethyl 1 gram capsule RxNorm: 6006932 Take 2 Capsule(s) Oral BID 09/12/19 021 Inactive Okay to dispense one 2gm tab if you have that available. amlodipine 10 mg tablet RxNorm: 082595 Take 1 Tablet(s) Oral QD 09/04/19 Inactive aspirin 81 mg tablet,delayed release RxNorm: 178390 Take 1 Tablet(s) Oral QD 09/04/19 Inactive Levemir FlexTouch U-100 Insulin 100 unit/mL (3 mL) subcutaneous pen RxNorm: 440826 Inject 150 Unit(s) Subcutaneous BID 09/04/19 Inactive venlafaxine ER 150 mg tablet,extended release 24 hr RxNorm: 740657 Take 1 Tablet(s) Oral QD 09/04/19 Inactive clotrimazole-betame thasone 1 %-0.05 % topical cream RxNorm: 760261 Apply to rash on red area on left abdomen/chest Topical BID 08/10/19 21 Inactive amlodipine 5 mg tablet RxNorm: 309102 Take 1 Tablet(s) Oral QD 07/31/19 21 Inactive cephalexin 500 mg tablet RxNorm: 620722 Take 1 Tablet(s) Oral BID BID - Twice Daily 07/31/19 21 021 Inactive Start 08/01/20 pantoprazole 40 mg tablet,delayed release RxNorm: 712941 Take 1 Tablet(s) Oral QAM every morning 07/08/19 21 022 Inactive senna 8.6 mg tablet RxNorm: 277206 Take 1 Tablet(s) Oral QD 07/08/19 21 022 Inactive pravastatin 80 mg tablet RxNorm: 823812 Take 1 Tablet(s) Oral QHS every night at bedtime 07/08/19 21 Inactive carbamazepine 200 mg tablet RxNorm: 341060 Take 1 Tablet(s) Oral BID 07/08/19 022 Inactive clopidogrel 75 mg tablet RxNorm: 203203 Take 1 Tablet(s) Oral QD 07/08/19 21 021 Inactive Blood Glucose Test strips RxNorm: Use 1 Test Strip QID at PRN 07/08/19 21 Inactive E11.42 Novolog Flexpen U-100 Insulin aspart 100 unit/mL (3 mL) subcutaneous RxNorm: 7287216 Administer per sliding scale Milliliter(s) Subcutaneous TID 151-200: 10 u; 201-250: 20 u; 251-300: 30 u; 301-350: 40 u; 351-400: 50 u. 07/08/19 21 022 Inactive lisinopril 5 mg tablet RxNorm: 823447 Take 1 Tablet(s) Oral QD 07/08/19 Inactive Novolog Flexpen U-100 Insulin aspart 100 unit/mL (3 mL) subcutaneous RxNorm: 8244224 Inject 85 Unit(s) Subcutaneous TID 07/08/19 Inactive clotrimazole 1 % topical cream RxNorm: 849556 Apply to bilateral groin areas Topical BID 07/08/19 21 Inactive metoprolol succinate ER 200 mg tablet,extended release 24 hr RxNorm: 356403 Take 1 Tablet(s) Oral QD 07/08/19 21 Inactive Vitamin D3 25 mcg (1,000 unit) tablet RxNorm: 212390 Take 1 Tablet(s) Oral QD 07/08/19 21 Inactive isosorbide dinitrate 30 mg tablet RxNorm: 580602 Take 1 Tablet(s) Oral QD 07/08/19 21 021 Inactive Levemir FlexTouch U-100 Insulin 100 unit/mL (3 mL) subcutaneous pen RxNorm: 356912 Inject 140 Unit(s) Subcutaneous BID 07/08/19 21 021 Inactive torsemide 20 mg tablet RxNorm: 983462 Take 1 Tablet(s) Oral QD 07/08/19 21 023 Inactive venlafaxine 75 mg tablet RxNorm: 691076 Take 1 Tablet(s) Oral QD 07/08/19 021 Inactive acetaminophen 500 mg tablet RxNorm: 747717 Take 1 Tablet(s) Oral TID as needed for headache 06/18/19 21 021 Inactive acetaminophen 500 mg tablet RxNorm: 743468 Take 1 Tablet(s) Oral TID as needed for headache 06/18/19 021 Inactive Lyrica 100 mg capsule RxNorm: 353502 Take 1 Capsule(s) Oral QHS every night at bedtime 06/11/19 21 021 Inactive Lyrica 50 mg capsule RxNorm: 260196 Take 1 Capsule(s) Oral QAM every morning 06/10/19 21 021 Inactive hydrocortisone 2.5 % topical cream RxNorm: 999182 Apply to bilateral groin creases Topical BID 05/15/20 20 021 Inactive clotrimazole 1 % topical cream RxNorm: 771413 Apply to bilateral groin areas Topical BID 05/15/20 20 021 Inactive Lyrica 50 mg capsule RxNorm: 383596 Take 1 Capsule(s) Oral QAM every morning 05/14/20 20 020 Inactive Lyrica 100 mg capsule RxNorm: 787366 Take 1 Capsule(s) Oral QHS every night [...] Inactive Nystop 100,000 unit/gram topical powder RxNorm: 104350 Apply to abd folds, under breasts and L side of groin Topical BID x 14 days, then BID PRN 04/08/20 20 Inactive dx: yeast dermatitis Lyrica 100 mg capsule RxNorm: 738941 Take 1 Capsule(s) Oral QHS every night at bedtime 03/13/20 20 Inactive Lyrica 50 mg capsule RxNorm: 360734 Take 1 Capsule(s) Oral QAM every morning 03/13/20 20 Inactive ketoconazole 2 % shampoo RxNorm: 867455 Apply Topical two times a week with showers 03/11/20 20 Inactive cholecalciferol (vitamin D3) 50 mcg (2,000 unit) tablet RxNorm: 760454 Take 1 Tablet(s) Oral QD 03/11/20 20 Inactive Zetia 10 mg tablet RxNorm: 455673 Take 1 Tablet(s) Oral QD 03/07/20 20 021 Inactive Zetia 10 mg tablet RxNorm: 475018 Take 1 Tablet(s) Oral QD 03/07/20 20 Inactive Lyrica 50 mg capsule RxNorm: 000943 Take 1 Capsule(s) Oral QAM every morning 02/15/20 20 Inactive Lyrica 100 mg capsule RxNorm: 933049 Take 1 Capsule(s) Oral QHS every night at bedtime 02/15/20 20 Inactive Lyrica 100 mg capsule RxNorm: 176777 Take 1 Capsule(s) Oral QHS every night at bedtime 02/15/20 20 Inactive Lyrica 50 mg capsule RxNorm: 583403 Take 1 Capsule(s) Oral QAM every morning 02/15/20 20 020 Inactive venlafaxine ER 75 mg capsule,extended release 24 hr RxNorm: 645542 Take 3 Capsule(s) Oral QD 06/12/19 Active polyethylene glycol 3350 17 gram/dose oral powder RxNorm: 598734 Take 17=1 capful Gram(s) Oral BID as needed mix with 4-8oz of liquid 06/12/19 Active metoprolol succinate ER 200 mg tablet,extended release 24 hr RxNorm: 479273 Take 1 Tablet(s) Oral QD 08/12/19 Active loperamide 2 mg capsule RxNorm: 852931 Take 1 Capsule(s) Oral QID as needed 06/12/19 Active hydralazine 50 mg tablet RxNorm: 125393 Take 1 Tablet(s) Oral QID 08/12/19 23 Active icosapent ethyl 1 gram capsule RxNorm: 6881370 Take 2 Capsule(s) (2 gm) Oral BID with meals 10/07/19 23 023 Inactive Okay to dispense one 2gm tab if you have that available. Levemir FlexTouch U-100 Insulin 100 unit/mL (3 mL) subcutaneous pen RxNorm: 856092 Inject 80 Unit(s) Subcutaneous BID 07/14/19 23 023 Inactive Novolog Flexpen U-100 Insulin aspart 100 unit/mL (3 mL) subcutaneous RxNorm: 6108405 Insert 30 Unit(s) Subcutaneous TID with meals [...] Codes Status Date Referral: [facility] WPtel: [id number], [address] [id number] [place] Referral Records Received 09/21/2022 Referral: [facility] WPtel: [address] [id number] [place] Referral Completed 05/28/2021 Referral: General Cardiology Referral Complet ed 01/03/2021 Referral: General Psychologist Referral Close d Instructions Comment Date Leonid is a?? Male being seen living at [facility]. Initial BPS visit 01/2020. PMHx including DMII, CAD w/ 5 stents, Depression, Seizure Disorder and CKD stage 3. He moved into [facility] in 12/2019 but after a hospitalization 05/2021 he moved to the [facility] to have closer nursing attention.??Sister Jyotsna involved in his care cell# [phone]??Guardian: Don (tapan met in person 09/01/21), now has Lexii (same group as don)Lab Schedule: * 10/06/2022
--- OUTSIDE RECORDS SUMMARY | 2022-12-08 01:00 | XMS_ITS | CCD ---
Author Name Unknown Organization Unknown Care Team Providers Care Shipper Name Role Phone Tapan Shirley PA-C Primary Care Provider Unavailabl e Tapan Shirley PA-C Chronic Care Management Unavaila ble Summary Purpose DataExchange Insurance Providers Payer name Policy type / Coverage type Covered green party ID Effective Begin Date Effective End Date Medicare [place] Medicare Part B [id number] Unknown Unknown [place] Medicare Part B [id number] Unknown Unknown Family history Sister Brittany Suggs [...] Shelter 09/03/[address]: 3934985 Non-Smoker / No History of Smoking 09/02/[address]: 124142941 No Alcohol Consum ption 09/02/2020 Allergies, Adverse Reactions, Alerts Substance Reaction Codes Entered Date Inactivated Date Status LISINOPRIL RxNorm: 21120 02/12/2020 No Inactive Da te Active Metformin [...] 08/11/2022 Active Coronary artery disease invo lving alatna [...] Instructions nystatin 100,000 unit/gram topical powder RxNorm: 393023 APPLY TO AFFECTED AREAS TOPICALLY 2 TIMES DAILY 11/21/19 024 Active Nystop 100,000 unit/gram topical powder RxNorm: 795399 Apply to abd folds, under breasts and L side of groin Topical BID x 14 days, then BID PRN 11/20/19 23 023 Inactive dx: yeast dermatitis Bengay Ultra Strength 4 %-30 %-10 % topical cream RxNorm: 467326 Apply 1 Gram(s) Topical QID PRN to feet and legs for neuropathic pain 11/11/19 23 024 Active hydrocortisone 2.5 % topical cream RxNorm: 629782 Apply 1/2 Gram(s) Topical BID as needed 11/10/19 No Stop Date Active clotrimazole 1 % topical cream RxNorm: 074589 Apply 1/2 Gram(s) Topical BID Apply to affected areas of groin, periarea, and abdominal topically 2 times daily 11/10/19 023 Inactive Levemir FlexPen 100 unit/mL (3 mL) solution subcutaneous insulin pen RxNorm: 160684 Inject 30 Unit(s) Subcutaneous BID 10/07/19 024 Active Humulin R U-500 (Concentrated) Insulin 500 unit/mL subcutaneous soln RxNorm: 412754 Inject 100 Unit(s) Subcutaneous TID 10/07/19 024 Active Ozempic 0.25 mg or 0.5 mg (2 mg/3 mL) subcutaneous pen injector RxNorm: 0605591 Inject 1/2 Milligram(s) Subcutaneous QW once a week 10/07/19 024 Active aripiprazole 15 mg tablet RxNorm: 727000 1/2 TAB (7.5MG) ORALLY DAILY (DX:MAJOR DEPRESSIVE DISORDER) 09/23/19 023 Active Accu-Chek Guide test strips RxNorm: Use 1 Test Strip QID 09/15/19 23 024 Active ok to substitute with any covered alternative test strip Lancets,Thin 28 gauge RxNorm: Use 1 as directed QID 09/15/19 23 024 Active torsemide 20 mg tablet RxNorm: 553492 Take 1 Tablet(s) Oral BID 09/09/19 024 Active d/c once daily dosing carvedilol 25 mg tablet RxNorm: 888674 Take 1 Tablet(s) Oral QD 08/25/19 23 024 Active pregabalin 150 mg capsule RxNorm: 117646 1 Capsule(s) Oral HS at bed time 08/18/19 023 Active pregabalin 100 mg capsule RxNorm: 573601 1 Capsule(s) Oral QAM every morning 08/18/19 023 Active carvedilol 25 mg tablet RxNorm: 310719 1 Tablet(s) Oral QD 07/28/19 23 023 Inactive lisinopril 20 mg tablet RxNorm: 106522 Give 1 Tablet(s) Oral QD 07/28/19 23 023 Inactive Lyrica 150 mg capsule RxNorm: 479758 Take 1 Capsule(s) Oral QHS every night at bedtime 07/19/19 23 023 Inactive d/c 100mg dose Diflucan 150 mg tablet RxNorm: 671887 Take 1 Tablet(s) Oral QD repeat on day 3 and 6 07/19/19 23 023 Inactive pregabalin 100 mg capsule RxNorm: 754014 Take 1 Capsule(s) Oral QAM every morning 07/19/19 023 Inactive gatifloxacin 0.5 % eye drops RxNorm: 739941 Instill 1 Drop(s) as directed TID Instill 1 drop in to affected eye(s) starting 1 day prior to surgery and continue until gone (do not exceed 4 weeks). 07/13/19 23 023 Inactive carvedilol 25 mg tablet RxNorm: 351285 2 Tablet(s) Oral BID 07/13/19 23 023 Inactive Humulin R Regular U-100 Insulin 100 unit/mL injection solution RxNorm: 994881 85 Unit(s) Injection TID 07/13/19 23 023 Inactive ketorolac 0.5 % eye drops RxNorm: 112765 Instill 1 Drop(s) as directed QID Instill 1 drop into affected eye(s) 4 times daily starting 1 day prior to surgery and continue until gone (do not exceed 4 weeks). 07/13/19 23 023 Inactive Diflucan 150 mg tablet RxNorm: 182881 Take 1 Tablet(s) Oral QD repeat on day 3 and 6 06/30/19 23 023 Inactive Accu-Chek Guide test strips RxNorm: Use 1 Test Strip QID Use 1 test strip to monitor blood glucose 4 times daily and as needed. Dx:E11.42. 06/23/19 23 023 Inactive ok to substitute with any covered alternative test strip dextromethorphan-gu aifenesin 10 mg-100 mg/5 mL oral liquid RxNorm: 240512 Take 10 Milliliter(s) Oral every 4 hours as needed for cough 06/19/19 23 023 Inactive dextromethorphan-gu aifenesin 10 mg-100 mg/5 mL oral liquid RxNorm: 052312 Take 10 Milliliter(s) Oral every 4 hours as needed for cough 06/19/19 023 Inactive Lyrica 150 mg capsule RxNorm: 599989 Take 1 Capsule(s) Oral QHS every night at bedtime 06/18/19 023 Inactive d/c 100mg dose aripiprazole 15 mg tablet RxNorm: 716401 1/2 TAB (7.5MG) ORALLY DAILY (DX:MAJOR DEPRESSIVE DISORDER) 06/05/19 023 Inactive pregabalin 100 mg capsule RxNorm: 573946 1 Capsule(s) Oral QAM every morning 06/02/19 023 Inactive Banophen 50 mg capsule RxNorm: 4710784 Take 1 Capsule(s) Oral Q6H every 6 hours as needed 05/19/19 23 No Stop Date Active Novolog Flexpen U-100 Insulin aspart 100 unit/mL (3 mL) subcutaneous RxNorm: 1838437 Inject 10 Unit(s) Subcutaneous QHS every night at bedtime with nighttime snack 04/08/20 022 Inactive Novolog Flexpen U-100 Insulin aspart 100 unit/mL (3 mL) subcutaneous RxNorm: 2863988 Inject 42 Unit(s) Subcutaneous TID in addition to sliding scale 04/08/20 022 Inactive d/c 36u albuterol sulfate HFA 90 mcg/actuation aerosol inhaler RxNorm: 0053268 Take 2 Puff(s) Inhalation Q4H every four hours as needed as needed for SOB, cough, or wheezing 04/07/20 030 Active Banophen 50 mg capsule RxNorm: 6982253 Take 1 Capsule(s) Oral Q6H every 6 hours as needed 04/06/20 023 Inactive diphenhydramine 50 mg tablet RxNorm: 2085051 Take 1 Tablet(s) Oral Q6H every 6 hours as needed 04/06/20 22 022 Inactive diphenhydramine 50 mg tablet RxNorm: 8840244 1 Tablet(s) Oral Q6H every 6 hours as needed 04/06/20 022 Inactive Abilify 15 mg tablet RxNorm: 999970 1/2 Tablet(s) Oral QD 03/10/20 22 023 Inactive Shingrix (PF) 50 mcg/0.5 mL intramuscular suspension, kit RxNorm: 9589195 Administer 1/2 Milliliter(s) Intramuscular QD one time shingrix step 2 ( step 1 given 11/04/21) WITH needle - Nursing please administer upon arrival and once administered post a bridge message with date of administration, beater lead, expiration date, and lot# so we can update [facility] 02/18/20 022 Inactive dispense with needle Shingrix (PF) 50 mcg/0.5 mL intramuscular suspension, kit RxNorm: 1636292 Administer 1/2 Milliliter(s) Intramuscular QD one time shingrix step 2 ( step 1 given 11/04/21) WITH needle - Nursing please administer upon arrival and once administered post a bridge message with date of administration, beater lead, expiration date, and lot# so we can update [facility] 02/18/20 22 022 Inactive dispense with needle acetaminophen 500 mg tablet RxNorm: 276916 Take 1 Tablet(s) Oral TID 01/08/20 22 023 Active d/c PRN order polyethylene glycol 3350 17 gram/dose oral powder RxNorm: 981431 Take 17=1 capful Gram(s) Oral QD mix with 4-8oz of liquid 01/08/20 22 023 Active take this in addition to BID prn order Lyrica 100 mg capsule RxNorm: 119814 Take 1 Capsule(s) Oral QAM every morning 01/08/20 22 022 Inactive d/c 50mg dose Lyrica 150 mg capsule RxNorm: 990805 Take 1 Capsule(s) Oral QHS every night at bedtime 01/08/20 22 023 Inactive d/c 100mg dose Abilify 5 mg tablet RxNorm: 451658 Take 1 Tablet(s) Oral QD take 1 tab po QD #30 refill 5 dx: MDD 12/12/19 22 022 Inactive Abilify 5 mg tablet RxNorm: 025155 Take 1 Tablet(s) Oral QD take 1 tab po QD #30 refill 5 dx: MDD 12/12/19 22 022 Inactive chlorthalidone 25 mg tablet RxNorm: 024130 Take 1 Tablet(s) Oral QAM every morning 12/10/19 22 023 Inactive Novolog Flexpen U-100 Insulin aspart 100 unit/mL (3 mL) subcutaneous RxNorm: 3735255 Inject 42 Unit(s) Subcutaneous TID in addition to sliding scale 12/10/19 22 022 Inactive d/c 36u pregabalin 50 mg capsule RxNorm: 003625 Take 1 Capsule(s) Oral QAM every morning 11/12/19 22 022 Inactive tetanus-diphtheria toxoids-Td 2 Lf unit-2 Lf unit/0.5 mL IM suspension RxNorm: 139 Take 0.5 Miscellaneous Intramuscular 11/12/19 22 022 Inactive need tdap - nursing to administer upon arrival pregabalin 50 mg capsule RxNorm: 174525 Take 1 Capsule(s) Oral QAM every morning 10/16/19 22 022 Inactive pregabalin 50 mg capsule RxNorm: 372111 Take 1 Capsule(s) Oral QAM every morning 10/16/19 22 022 Inactive pregabalin 50 mg capsule RxNorm: 199468 1 Capsule(s) Oral QAM every morning 10/15/19 22 022 Inactive Shingrix (PF) 50 mcg/0.5 mL intramuscular suspension, kit RxNorm: 3377993 Administer 1/2 Milliliter(s) Intramuscular one time Nursing please administer upon arrival and once administered post a bridge message with date of administration, beater lead, expiration date, and lot# so we can update [facility]IC. 10/09/19 22 022 Inactive shingrix step 1 Shingrix (PF) 50 mcg/0.5 mL intramuscular suspension, kit RxNorm: 7349086 Administer 1/2 Milliliter(s) Intramuscular one time Nursing please administer upon arrival and once administered post a bridge message with date of administration, beater lead, expiration date, and lot# so we can update [facility]IC. 10/09/19 22 Inactive shingrix step 1 cholecalciferol (vitamin D3) 1,250 mcg (50,000 unit) capsule RxNorm: 370828 Take 1 Capsule(s) Oral QW once a [...] aspart 100 unit/mL (3 mL) subcutaneous RxNorm: 0257393 Inject 10 Unit(s) Subcutaneous QHS every night at bedtime with nighttime snack 10/08/19 22 Inactive Shingrix (PF) 50 mcg/0.5 mL intramuscular suspension, kit RxNorm: 7046051 ADMINISTER 2-DOSE SERIES PER CDC GUIDELINES 10/08/19 22 022 Active Shingrix (PF) 50 mcg/0.5 mL intramuscular suspension, kit RxNorm: 1898501 ADMINISTER 2-DOSE SERIES PER CDC GUIDELINES 10/08/19 22 Inactive Novolog Flexpen U-100 Insulin aspart 100 unit/mL (3 mL) subcutaneous RxNorm: 4780918 Inject 36 Unit(s) Subcutaneous TID in addition to sliding scale 10/08/19 22 Inactive Novofine Autocover 30 gauge x 1/3 needle RxNorm: Use 1 Miscellaneous UD as directed Use 1 needle as directed to administer insulin 5 times a day Dx:E11.42. 10/03/19 22 022 Inactive ok to substitute with any covered alternative pen needle benzoyl peroxide 10 % topical cleanser RxNorm: 164924 Apply 1 Application Topical QD apply to face, wash rinse and dry once daily (may change to QOD if drying) 08/19/19 22 022 Inactive (%covered by insurance) #60ml refill 11 dx: acne benzoyl peroxide 10 % topical cleanser RxNorm: 262258 Apply 1 Application Topical QD apply to face, wash rinse and dry once daily (may change to QOD if drying) 08/19/19 22 022 Inactive (%covered by insurance) #60ml refill 11 dx: acne benzoyl peroxide 10 % topical cleanser RxNorm: 132030 Apply 1 Application Topical QD apply to face, wash rinse and dry once daily (may change to QOD if drying) 08/19/19 22 022 Inactive (%covered by insurance) #60ml refill 11 dx: acne Lyrica 50 mg capsule RxNorm: 797448 Take 1 Capsule(s) Oral QAM every morning Take 1 capsule by mouth once daily 08/19/19 022 Inactive benzoyl peroxide 10 % topical cleanser RxNorm: 427958 Apply 1 Application Topical QD apply to face, wash rinse and dry once daily (may change to QOD if drying) 08/19/19 22 022 Inactive (%covered by insurance) #60ml refill 11 dx: acne Lyrica 100 mg capsule RxNorm: 373083 Take 1 Capsule(s) Oral QHS every night at bedtime Take 1 capsule by mouth once daily at bedtime 08/19/19 22 022 Inactive Lyrica 100 mg capsule RxNorm: 229285 Take 1 Capsule(s) Oral QHS every night at bedtime Take 1 capsule by mouth once daily at bedtime 08/16/19 022 Inactive Lyrica 50 mg capsule RxNorm: 421191 Take 1 Capsule(s) Oral QAM every morning Take 1 capsule by mouth once daily 08/16/19 22 022 Inactive Levemir FlexTouch U-100 Insulin 100 unit/mL (3 mL) subcutaneous pen RxNorm: 171375 Inject 86 Unit(s) Subcutaneous BID 08/05/19 22 022 Inactive d/c 83units BID Lyrica 100 mg capsule RxNorm: 205781 Take 1 Capsule(s) Oral QHS every night at bedtime Take 1 capsule by mouth once daily at bedtime 07/14/19 22 Inactive Lyrica 50 mg capsule RxNorm: 799666 Take 1 Capsule(s) Oral QAM every morning Take 1 capsule by mouth once daily 07/14/19 22 Inactive Levemir FlexTouch U-100 Insulin 100 unit/mL (3 mL) subcutaneous pen RxNorm: 314486 Inject 83 Unit(s) Subcutaneous BID 07/08/19 22 [...] 30 mg tablet,extended release 24 hr RxNorm: 226970 Take 1 Tablet(s) Oral QD 05/05/20 No Stop Date Active hydralazine 50 mg tablet RxNorm: 616552 Take 1 Tablet(s) Oral QID 05/05/20 022 Inactive venlafaxine ER 225 mg tablet,extended release 24 hr RxNorm: 975030 Take 1 Tablet(s) Oral QD 05/05/20 Inactive venlafaxine ER 225 mg tablet,extended release 24 hr RxNorm: 927544 Take 1 Tablet(s) Oral QD 05/05/20 022 Inactive hydralazine 50 mg tablet RxNorm: 574323 Take 1 Tablet(s) Oral QID 05/05/20 Inactive aspirin 81 mg tablet,delayed release RxNorm: 045841 Take 1 Tablet(s) Oral QD 03/31/20 Inactive Zetia 10 mg tablet RxNorm: 050346 Take 1 Tablet(s) Oral QD 03/31/20 Inactive Vitamin D2 1,250 mcg (50,000 unit) capsule RxNorm: 0060002 Take 1 Capsule(s) Oral QW once a week x 12 weeks 03/31/20 Inactive Vitamin D2 1,250 mcg (50,000 unit) capsule RxNorm: 4271397 Take 1 Capsule(s) Oral QW once a week 03/31/20 Inactive Zetia 10 mg tablet RxNorm: 867768 Take 1 Tablet(s) Oral QD 03/31/20 Inactive hydralazine 25 mg tablet RxNorm: 274111 Take 1 Tablet(s) Oral QID 03/31/20 Inactive hydralazine 25 mg tablet RxNorm: 433276 Take 1 Tablet(s) Oral QID 03/31/20 021 Inactive hydralazine 10 mg tablet RxNorm: 667428 Take 1 Tablet(s) Oral QID 10/18/20 21 11/14/2 021 Inactive cephalexin 500 mg tablet RxNorm: 960225 Take 1 Tablet(s) Oral QID 02/27/20 021 Inactive cephalexin 500 mg tablet RxNorm: 150940 Take 1 Tablet(s) Oral QID 02/27/20 021 Inactive lisinopril 40 mg tablet RxNorm: 431991 Take 1 Tablet(s) Oral QD 02/11/20 023 Inactive Eliquis 5 mg tablet RxNorm: 8496136 Take 1 Tablet(s) Oral BID 01/05/20 21 022 Inactive Eliquis 5 mg tablet RxNorm: 4958230 Take 2 Tablet(s) Oral QD 01/01/20 21 021 Inactive Lyrica 50 mg capsule RxNorm: 640120 Take 1 Capsule(s) Oral QAM every morning 12/24/19 021 Inactive Lyrica 100 mg capsule RxNorm: 585265 Take 1 Capsule(s) Oral QHS every night at bedtime 12/24/19 021 Inactive clotrimazole 1 % topical cream RxNorm: 107777 Apply to right foot and toes Topical BID 12/04/19 21 023 Inactive metoprolol succinate ER 200 mg tablet,extended release 24 hr RxNorm: 040002 Take 1 Tablet(s) Oral QD 12/04/19 023 Inactive ciprofloxacin 500 mg tablet RxNorm: 441528 Take 1 Tablet(s) Oral QD 11/30/19 021 Inactive DX ofloxacin otic drops Accu-Chek Guide test strips RxNorm: USE 1 TO CHECK GLUCOSE 4 TIMES DAILY AND NEEDED 11/15/19 21 023 Inactive Blood Glucose Test strips RxNorm: Use 1 Test Strip QID at PRN 11/05/19 21 023 Inactive E11.42 lisinopril 30 mg tablet RxNorm: 483057 Take 1 Tablet(s) Oral QD 10/30/19 021 Inactive lisinopril 20 mg tablet RxNorm: 734655 Take 1 Tablet(s) Oral QD 10/23/19 21 021 Inactive lisinopril 20 mg tablet RxNorm: 756623 Take 1 Tablet(s) Oral QD 10/23/19 21 Inactive lisinopril 10 mg tablet RxNorm: 331522 Take 1 Tablet(s) Oral QD 10/02/19 21 021 Inactive icosapent ethyl 1 gram capsule RxNorm: 9439582 Take 2 Capsule(s) (2 gm) Oral BID with meals 09/12/19 022 Inactive Okay to dispense one 2gm tab if you have that available. icosapent ethyl 1 gram capsule RxNorm: 2791389 Take 2 Capsule(s) Oral BID 09/12/19 021 Inactive Okay to dispense one 2gm tab if you have that available. amlodipine 10 mg tablet RxNorm: 049393 Take 1 Tablet(s) Oral QD 09/04/19 Inactive aspirin 81 mg tablet,delayed release RxNorm: 149543 Take 1 Tablet(s) Oral QD 09/04/19 Inactive Levemir FlexTouch U-100 Insulin 100 unit/mL (3 mL) subcutaneous pen RxNorm: 636845 Inject 150 Unit(s) Subcutaneous BID 09/04/19 Inactive venlafaxine ER 150 mg tablet,extended release 24 hr RxNorm: 125210 Take 1 Tablet(s) Oral QD 09/04/19 Inactive clotrimazole-betame thasone 1 %-0.05 % topical cream RxNorm: 770430 Apply to rash on red area on left abdomen/chest Topical BID 08/10/19 21 Inactive amlodipine 5 mg tablet RxNorm: 200399 Take 1 Tablet(s) Oral QD 07/31/19 21 Inactive cephalexin 500 mg tablet RxNorm: 331148 Take 1 Tablet(s) Oral BID BID - Twice Daily 07/31/19 21 021 Inactive Start 08/01/20 pantoprazole 40 mg tablet,delayed release RxNorm: 823246 Take 1 Tablet(s) Oral QAM every morning 07/08/19 21 022 Inactive senna 8.6 mg tablet RxNorm: 452247 Take 1 Tablet(s) Oral QD 07/08/19 21 022 Inactive pravastatin 80 mg tablet RxNorm: 235035 Take 1 Tablet(s) Oral QHS every night at bedtime 07/08/19 21 Inactive carbamazepine 200 mg tablet RxNorm: 862027 Take 1 Tablet(s) Oral BID 07/08/19 022 Inactive clopidogrel 75 mg tablet RxNorm: 549040 Take 1 Tablet(s) Oral QD 07/08/19 21 021 Inactive Blood Glucose Test strips RxNorm: Use 1 Test Strip QID at PRN 07/08/19 21 Inactive E11.42 Novolog Flexpen U-100 Insulin aspart 100 unit/mL (3 mL) subcutaneous RxNorm: 9986641 Administer per sliding scale Milliliter(s) Subcutaneous TID 151-200: 10 u; 201-250: 20 u; 251-300: 30 u; 301-350: 40 u; 351-400: 50 u. 07/08/19 21 022 Inactive lisinopril 5 mg tablet RxNorm: 218452 Take 1 Tablet(s) Oral QD 07/08/19 Inactive Novolog Flexpen U-100 Insulin aspart 100 unit/mL (3 mL) subcutaneous RxNorm: 9775048 Inject 85 Unit(s) Subcutaneous TID 07/08/19 Inactive clotrimazole 1 % topical cream RxNorm: 923482 Apply to bilateral groin areas Topical BID 07/08/19 21 Inactive metoprolol succinate ER 200 mg tablet,extended release 24 hr RxNorm: 340597 Take 1 Tablet(s) Oral QD 07/08/19 21 Inactive Vitamin D3 25 mcg (1,000 unit) tablet RxNorm: 079300 Take 1 Tablet(s) Oral QD 07/08/19 21 Inactive isosorbide dinitrate 30 mg tablet RxNorm: 328709 Take 1 Tablet(s) Oral QD 07/08/19 21 021 Inactive Levemir FlexTouch U-100 Insulin 100 unit/mL (3 mL) subcutaneous pen RxNorm: 305913 Inject 140 Unit(s) Subcutaneous BID 07/08/19 21 021 Inactive torsemide 20 mg tablet RxNorm: 416797 Take 1 Tablet(s) Oral QD 07/08/19 21 023 Inactive venlafaxine 75 mg tablet RxNorm: 789484 Take 1 Tablet(s) Oral QD 07/08/19 021 Inactive acetaminophen 500 mg tablet RxNorm: 644420 Take 1 Tablet(s) Oral TID as needed for headache 06/18/19 21 021 Inactive acetaminophen 500 mg tablet RxNorm: 462717 Take 1 Tablet(s) Oral TID as needed for headache 06/18/19 021 Inactive Lyrica 100 mg capsule RxNorm: 619331 Take 1 Capsule(s) Oral QHS every night at bedtime 06/11/19 21 021 Inactive Lyrica 50 mg capsule RxNorm: 788189 Take 1 Capsule(s) Oral QAM every morning 06/10/19 21 021 Inactive hydrocortisone 2.5 % topical cream RxNorm: 060660 Apply to bilateral groin creases Topical BID 05/15/20 20 021 Inactive clotrimazole 1 % topical cream RxNorm: 170833 Apply to bilateral groin areas Topical BID 05/15/20 20 021 Inactive Lyrica 50 mg capsule RxNorm: 433321 Take 1 Capsule(s) Oral QAM every morning 05/14/20 20 020 Inactive Lyrica 100 mg capsule RxNorm: 659240 Take 1 Capsule(s) Oral QHS every night [...] Inactive Nystop 100,000 unit/gram topical powder RxNorm: 394518 Apply to abd folds, under breasts and L side of groin Topical BID x 14 days, then BID PRN 04/08/20 20 Inactive dx: yeast dermatitis Lyrica 100 mg capsule RxNorm: 444805 Take 1 Capsule(s) Oral QHS every night at bedtime 03/13/20 20 Inactive Lyrica 50 mg capsule RxNorm: 366456 Take 1 Capsule(s) Oral QAM every morning 03/13/20 20 Inactive ketoconazole 2 % shampoo RxNorm: 505647 Apply Topical two times a week with showers 03/11/20 20 Inactive cholecalciferol (vitamin D3) 50 mcg (2,000 unit) tablet RxNorm: 451484 Take 1 Tablet(s) Oral QD 03/11/20 20 Inactive Zetia 10 mg tablet RxNorm: 461211 Take 1 Tablet(s) Oral QD 03/07/20 20 021 Inactive Zetia 10 mg tablet RxNorm: 252173 Take 1 Tablet(s) Oral QD 03/07/20 20 Inactive Lyrica 50 mg capsule RxNorm: 790524 Take 1 Capsule(s) Oral QAM every morning 02/15/20 20 Inactive Lyrica 100 mg capsule RxNorm: 213428 Take 1 Capsule(s) Oral QHS every night at bedtime 02/15/20 20 Inactive Lyrica 100 mg capsule RxNorm: 619224 Take 1 Capsule(s) Oral QHS every night at bedtime 02/15/20 20 Inactive Lyrica 50 mg capsule RxNorm: 549236 Take 1 Capsule(s) Oral QAM every morning 02/15/20 20 020 Inactive venlafaxine ER 75 mg capsule,extended release 24 hr RxNorm: 799472 Take 3 Capsule(s) Oral QD 06/12/19 Active polyethylene glycol 3350 17 gram/dose oral powder RxNorm: 385611 Take 17=1 capful Gram(s) Oral BID as needed mix with 4-8oz of liquid 06/12/19 Active metoprolol succinate ER 200 mg tablet,extended release 24 hr RxNorm: 439623 Take 1 Tablet(s) Oral QD 08/12/19 Active loperamide 2 mg capsule RxNorm: 673222 Take 1 Capsule(s) Oral QID as needed 06/12/19 Active hydralazine 50 mg tablet RxNorm: 449682 Take 1 Tablet(s) Oral QID 08/12/19 23 Active icosapent ethyl 1 gram capsule RxNorm: 6013858 Take 2 Capsule(s) (2 gm) Oral BID with meals 10/07/19 23 023 Inactive Okay to dispense one 2gm tab if you have that available. Levemir FlexTouch U-100 Insulin 100 unit/mL (3 mL) subcutaneous pen RxNorm: 554392 Inject 80 Unit(s) Subcutaneous BID 07/14/19 23 023 Inactive Novolog Flexpen U-100 Insulin aspart 100 unit/mL (3 mL) subcutaneous RxNorm: 9201645 Insert 30 Unit(s) Subcutaneous TID with meals [...] Status Date Referral: [facility] WPtel: [address] [id number] [place] Referral Records Received 09/21/2022 Referral: [facility] WPtel: [address] [id number] [place] Referral Completed 05/28/2021 Referral: General Cardiology [...] [facility] to have closer nursing attention.??Sister Jyotsna involved in his care cell# [phone]??Guardian: Don (tapan met in person 09/01/21), now has Lexii (same group as don)Lab Schedule: * 10/06/2022
[2022-12-08 01:28] LABS: SARS PCR* Negative SARS-CoV-2 (Negative)
[2022-12-08 01:53] LABS: Albumin* 3.7 g/dL (3.3-5.0)
[2022-12-08 01:55] LABS: Bilirubin Direct* 0.3 mg/dL (0.0-0.5); Bilirubin Total* 0.5 mg/dL (0.1-1.5)
[2022-12-08 01:56] LABS: Alanine Aminotransferase* 26 U/L (4-50); Alkaline Phosphatase* 97 U/L (40-150); Aspartate Amino Transferase* 37 U/L (12-35); Lipase* 75 U/L (23-300); Total Protein* 6.5 g/dL (6.0-8.3)
[2022-12-08 01:59] LABS: C Reactive Protein* 1.5 mg/dL (0.5-1.0)
[2022-12-08 02:08] LABS: NT Pro B Type NatriureticPept* 76 pg/mL
[2022-12-08] MEDS: PANTOPRAZOLE SODIUM 40 MG INJ IVP (02:33)
[2022-12-08 02:36] LABS: Erythrocyte SedimentationRate* 63 mm/hr (2-15)
--- NOTE | 2022-12-08 02:43 | CRLHL7_ITS ---
For Patients: As a result of the Century Cures Act, medical imaging exams and procedure reports are released immediately into your electronic medical record. You may view this report before your referring provider. If you have questions, please contact your health care provider. INDICATION: Chest pain TECHNIQUE: Chest radiograph 1 view COMPARISON: 10/19/2022 FINDINGS: The sensitivity and specificity of the exam are severely limited by the patient`s body habitus. Mediastinum: The mediastinum is normal in appearance. Moderate cardiomegaly is noted and similar to prior examination. Lung: Both lungs are unremarkable in appearance. Both lung apices are obscured by the patient`s chin. No sign of pleural effusion seen. No pneumothorax is identified. Bone and Soft tissue: Unremarkable for age. IMPRESSION: 1. Moderate cardiomegaly is noted and similar to prior examination. Dictated by Gael Spann MD @ 12/08/2022 3:03:42 AM Dictated by: Gael Spann MD @ 12/08/2022 03:03:48 (Electronically Signed)
--- NOTE | 2022-12-08 04:11 | ED.NURSE ---
called staff nurse at [facility]. pt. will be transferred via [facility].
== END 2022-12-08 04:15 | disposition home or self-care (01) ==
PROVIDERS: Emergency Provider Emergency Medicine
DX: R07.9 Chest pain, unspecified (principal); R51.9 Headache, unspecified; E87.6 Hypokalemia
CPT/HCPCS: 36415; 71045; 80048; 80076; 83690; 83880; 84484; 85025; 85379; 85651; 86140; 87635; 93005; 94761; 96374; 99284; 99285; A9270; C9113

== ENCOUNTER 2022-12-08 04:16 | Outpatient (CLI) | payer MEDICARE, MEDICAID, SELFPAY | END 2022-12-08 04:17 | disposition home or self-care (01) | LOC: AMB 12-09 12:13 | PROVIDERS: Visit Provider Emergency Medicine | DX: R07.89 Other chest pain (principal) | CPT/HCPCS: A0425; A0428 ==

== ENCOUNTER 2022-12-13 10:15 | Outpatient (CLI) | payer MEDICARE, MEDICAID, SELFPAY | END 2022-12-13 10:16 | disposition home or self-care (01) | LOC: AMB 12-24 05:16 | PROVIDERS: Visit Provider Family Medicine | DX: R07.89 Other chest pain (principal) | CPT/HCPCS: A0425; A0427 ==

== ENCOUNTER 2022-12-13 11:06 | Emergency (ER) | payer MEDICARE, MEDICAID, SELFPAY ==
[2022-12-13] VITALS (19 sets, daily range): BP systolic 111–161; BP diastolic 53–79; PULSE 72–83; RESP 20–22; TEMP 36.4–36.9; O2SAT 91–97; BMI 63.8
--- NOTE | 2022-12-13 11:47 | ED_ITS ---
HPI - Chest Pain General Date Seen: 12/13/22 Chief Complaint: Chest Pain Stated Complaint: chest pain Time Seen by Provider: 12/13/22 11:06 Source: patient and EMS Mode of arrival: EMS Limitations: physical limitation History of Present Illness HPI narrative: Patient is a 62-year-old gentleman who presents here a long-term and [place]. With chest pain he has had the chest pain since yesterday, was here 5 days ago with similar complaints, chest pain started yesterday, he describes or left side of his chest with radiation to his left side of his abdomen, and through to his back. Is worse when he moves or sits up, better when he lays flat. Think give him some nitroglycerin yesterday and this morning, p.r.n. dose than this did not help his pain. He called the ambulance and was brought in, as he does have a history of cardiac stents, initially on meeting me tells me that this is caused by his heart, and that the pain he thinks is related to that. He has not had any nausea, sweating, vomiting, denies any shortness of breath associated with this fevers chills or sweats, he has been eating and drinking otherwise normally, no dysuria frequency. Denies any radiation to his left side of his arm, or down. He was last had cardiac stenting with an angiogram I believe in 1999 at [place]. The chest pain comes and goes and is intermittent, he describes it as sharp. Bit of a poor historian as he tells me initially that it is there all the time but then it worsens when he sits up and moves around. He does have a lot of history of chest pain, he has been here at least 3 times so far in 2002 with noncardiac chest pain. MD complaint: chest pain Pertinent past history: coronary artery disease and prior ID Onset (ago): day(s) Prior episodes: Yes Onset: during rest Pain location: substernal, left chest and other Pain radiation: left scapula and right scapula Severity: moderate Quality: sharp and similar to prior ID Relieving factors: nothing and other (Laying flat seems to help him the most.) Exacerbating factors: inspiration and movement Context: history of DVT/PE Treatment prior to arrival: aspirin Risk Factors Thoracic aortic dissection risk factors: none Related Data Home Medications Medication Instructions Recorded Confirmed amlodipine 10 mg tablet 10 mg PO DAILY 03/07/22 07/24/22 apixaban 5 mg tablet (Eliquis) 5 mg PO BID 03/07/22 07/24/22 aripiprazole 15 mg tablet 7.5 mg PO DAILY 03/07/22 07/24/22 aspirin 81 mg tablet,delayed 81 mg PO DAILY 03/07/22 07/24/22 release carbamazepine 200 mg tablet 200 mg PO BID 03/07/22 07/24/22 chlorthalidone 25 mg tablet 25 mg PO DAILY 03/07/22 07/24/22 ezetimibe 10 mg tablet 10 mg PO DAILY 03/07/22 07/24/22 hydralazine 50 mg tablet 50 mg PO QID 03/07/22 07/24/22 isosorbide mononitrate 30 mg 30 mg PO DAILY 03/07/22 07/24/22 tablet,extended release 24 hr pantoprazole 40 mg tablet,delayed 40 mg PO DAILY 03/07/22 07/24/22 release polyethylene glycol 3350 17 17 g PO DAILY 03/07/22 07/25/22 gram/dose oral powder pravastatin 80 mg tablet 80 mg PO HS 03/07/22 07/24/22 pregabalin 100 mg capsule 100 mg PO QAM 03/07/22 07/24/22 pregabalin 150 mg capsule 150 mg PO HS 03/07/22 07/24/22 torsemide 20 mg tablet 20 mg PO DAILY 03/07/22 07/24/22 venlafaxine 75 mg capsule,extended 225 mg PO DAILY 03/07/22 07/24/22 release 24 hr acetaminophen 500 mg tablet 500 mg PO Q6H 06/13/22 07/24/22 albuterol sulfate 90 mcg/actuation 1 inh inhalation Q4H PRN 06/13/22 07/24/22 aerosol inhaler bronchospasm diphenhydramine HCl 50 mg capsule 50 mg PO Q6H PRN itching 06/13/22 07/24/22 (Banophen) icosapent ethyl 1 gram capsule 2 g PO BID 06/13/22 07/24/22 (Vascepa) insulin regular hum U-500 conc 500 85 unit subcut TID 06/13/22 07/24/22 unit/mL(3 mL) subcut pen (Humulin R U-500 (Conc) Insulin Kwikpen) ketoconazole 2 % shampoo 1 applic topical Q3D 06/13/22 07/24/22 loperamide 2 mg capsule 2 mg PO Q6H PRN loose stool 06/13/22 07/24/22 nystatin 100,000 unit/gram topical 1 applic topical BID PRN 06/13/22 07/24/22 powder sennosides 8.6 mg tablet (senna) 8.6 mg PO DAILY 06/13/22 07/24/22 clotrimazole 1 % topical cream 1 applic topical BID 07/25/22 07/25/22 ergocalciferol (vitamin D2) 1,250 50,000 unit PO WE@07/25/22 07/25/22 mcg (50,000 unit) capsule fluconazole 150 mg tablet 150 mg PO TUFR@07/25/22 07/25/22 gatifloxacin 0.5 % eye drops 1 drp ophthalmic (eye) QID 07/25/22 07/25/22 ketorolac 0.5 % eye drops 1 drp ophthalmic (eye) QID 07/25/22 07/25/22 prednisolone acetate 1 % eye 1 drp ophthalmic (eye) QID 07/25/22 07/25/22 drops,suspension Previous Rx's Medication Instructions Recorded amoxicillin 875 mg-potassium 1 tab PO BID 7 days #14 tabs 07/26/22 clavulanate 125 mg tablet carvedilol 25 mg tablet 25 mg PO Q12H 30 days #60 tabs 07/26/22 lisinopril 20 mg tablet 20 mg PO DAILY 30 days #60 tabs 07/26/22 cephalexin 500 mg capsule 500 mg PO TID 10 days #30 caps 09/14/22 hydrocortisone 2.5 % topical cream 1 applic topical BID PRN #30 grams 09/14/22 nystatin 100,000 unit/gram topical 1 applic topical BID #30 grams 09/14/22 powder potassium chloride 20 mEq oral 20 meq PO DAILY 3 days #3 ea 10/19/22 packet potassium chloride 20 mEq 20 meq PO DAILY #10 tabs 12/08/22 tablet,extended release Allergies Allergy/AdvReac Type Severity Reaction Status Date / Time lisinopril AdvReac Verified 11/09/22 22:58 metformin AdvReac Verified 11/09/22 22:58 Review of Systems Status of ROS Reports: 10 or more systems reviewed and unremarkable except as noted in History and below [facility] Medical History Insulin dependent diabetes mellitus Recurrent deep vein thrombosis (DVT) ?I82.409 - Acute embolism and thrombosis of unspecified deep veins of unspecified lower extremity (ICD-10) Hypertension ?I10 - Essential (primary) hypertension (ICD-10) Coronary artery disease ?I25.10 - Atherosclerotic heart disease of [place] coronary artery without angina pectoris (ICD-10) Hypertriglyceridemia ?E78.1 - Pure hyperglyceridemia (ICD-10) Epilepsy ?G40.909 - Epilepsy, unspecified, not intractable, without status epilepticus (ICD-10) TASHI on CPAP ?G47.33 - Obstructive sleep apnea (adult) (pediatric) (ICD-10) ?Z99.89 - Dependence on other enabling machines and devices (ICD-10) Tachypnea ?R06.82 - Tachypnea, not elsewhere classified (ICD-10) Fever ?R50.9 - Fever, unspecified (ICD-10) CKD (chronic kidney disease) ?N18.9 - Chronic kidney disease, unspecified (ICD-10) Gout ?M10.9 - Gout, unspecified (ICD-10) Major depressive disorder ?F32.9 - Major depressive disorder, single episode, unspecified (ICD-10) Type 2 diabetes mellitus ?E11.9 - Type 2 diabetes mellitus without complications (ICD-10) Obesity ?E66.9 - Obesity, unspecified (ICD-10) Surgical History History of cholecystectomy ?Z90.49 - Acquired absence of other specified parts of digestive tract (ICD- 10) Social History Narrative: Lives in a snf in [place], [place]. Sisters Brittany Suggs ([phone]) and Blanka Mcduffie ([phone]) listed as contacts and medical decision makers. Paperwork from snf indicates Full Code status. Highest level of school completed/degree received: 12th grade, no diploma Smoking Status: Never smoker Do you use any of these nicotine containing products: None Second hand tobacco smoke exposure: No How often do you have a drink containing alcohol: never How often do you have six or more drinks on one occasion: Never AUDIT-C Alcohol total score: 0 Non-prescribed substance use: denies use Caffeine: No service: No Exam Narrative Exam Narrative: Patient is seen in room, he is pleasant, lying in the gurney, with the very elevated BMI. Pupils are equal round reactive to light there is no scleral icterus redness TMs normal oropharynx normal, chest is good air entry bilaterally with no wheezing crackles noted, there is some limitation due to the size of his chest, heart sounds no clicks murmurs or gallops, abdomen is diffusely obese, he localizes pain is left upper left side of his abdomen. The re is no peritoneal signs clearly, bowel sounds are normal, there is no way that I can feel any organomegaly. Lower extremities look normal bilaterally and symmetrical, large, no edema. Moves extremities independently and well no evidence of rashes. Const Vital Signs, click to edit/add: Vital Signs - 24 hr 12/13/22 11:13 12/13/22 11:40 12/13/22 11:45 Temperature 97.5 F L Pulse Rate 80 80 Respiratory Rate 22 Blood Pressure Blood Pressure [Right Forearm] 161/72 H Pulse Oximetry 96 95 96 Oxygen Delivery Method Room Air 12/13/22 12:00 12/13/22 12:03 12/13/22 12:04 Temperature Pulse Rate 80 79 79 Respiratory Rate Blood Pressure 155/79 H Blood Pressure [Right Forearm] Pulse Oximetry 96 95 95 Oxygen Delivery Method 12/13/22 12:15 12/13/22 12:30 12/13/22 12:32 Temperature Pulse Rate 82 83 83 Respiratory Rate Blood Pressure 118/65 Blood Pressure [Right Forearm] Pulse Oximetry 97 94 95 Oxygen Delivery Method 12/13/22 12:45 12/13/22 13:23 12/13/22 13:30 Temperature Pulse Rate 82 79 80 Respiratory Rate Blood Pressure Blood Pressure [Right Forearm] Pulse Oximetry 91 94 93 Oxygen Delivery Method 12/13/22 13:31 12/13/22 13:32 12/13/22 13:45 Temperature Pulse Rate 81 81 78 Respiratory Rate Blood Pressure 132/53 L Blood Pressure [Right Forearm] Pulse Oximetry 94 92 92 Oxygen Delivery Method 12/13/22 14:00 12/13/22 14:03 12/13/22 14:32 Temperature Pulse Rate 82 Respiratory Rate Blood Pressure 111/75 114/59 L Blood Pressure [Right Forearm] Pulse Oximetry 93 Oxygen Delivery Method Documenting provider has reviewed patient's vital signs: yes Course Course Hospital Course: I had a long discussion with Skylar. I do not see any evidence of any cardiac issues he has this chest pain from time to time it is really unresponsive to nitroglycerin. Troponins x2 are negative, his D-dimer is barely elevated and there is no evidence of any large emboli. Vital signs are all within normal limits, he likely will need follow-up with Cardiology, I think this is a great for step because the test of choice here would be a cardiac PET scan a not so much a Lexiscan, his he has I think close to the maximum size for the scanner. Obviously if he has worsening pain, nausea vomiting diaphoresis that he should come back and get checked, his with his stents it is hard to say what is going on. The morphine clearly did help his pain. Reviewed the radiology report, shows no evidence of central emboli, I do agree that he has a tough study, but given the above findings in the relatively normality of his presentation and vital signs, I will send him back. Will need follow-up with Cardiology I have discussed this in detail with kSylar. Vital Signs Vital signs: Initial Vital Signs Temperature 97.5 F L 12/13/22 11:13 Temperature Source Temporal Artery Scan 12/13/22 11:13 Pulse Rhythm Regular 12/13/22 11:13 Respiratory Rate 22 12/13/22 11:13 Blood Pressure 161/72 H 12/13/22 11:13 Blood Pressure Mean 101 12/13/22 11:13 Blood Pressure Position Supine 12/13/22 11:13 Pulse Oximetry 96 12/13/22 11:13 Oxygen Delivery Method Room Air 12/13/22 11:13 Vital Signs Temperature 97.5 F L 12/13/22 11:13 Respiratory Rate 22 12/13/22 11:13 Blood Pressure 161/72 H 12/13/22 11:13 Pulse Oximetry 96 12/13/22 11:13 Oxygen Delivery Method Room Air 12/13/22 11:13 Temperature 97.5 F L 12/13/22 11:13 Pulse Rate 82 12/13/22 14:00 Respiratory Rate 22 12/13/22 11:13 Blood Pressure 114/59 L 12/13/22 14:32 Pulse Oximetry 93 12/13/22 14:00 Oxygen Delivery Method Room Air 12/13/22 11:13 MDM - Chest Pain MDM Narrative Medical decision making narrative: During the evaluation of this patient I considered multiple differential d iagnosis is. The life-threatening differential diagnosis include coronary disease/ID, pulmonary embolism, pneumothorax, pneumonia, and aortic dissection. Other differential diagnosis included but were not limited to pericarditis, myocarditis, chest wall pain, GERD, esophageal rupture, rib fracture contusion, pleurisy, as well as other etiologies. Clearly this is the tough diagnosis in this gentleman. He does have the history of coronary artery disease, but also has a lot of chest pain around this that is noncardiac. I do not see recently that he has had imaging done of his heart. I will try to get some notes from [place], along with the [employer] system, was also able to review that he had a history of abdominal aortic aneurysm that was 3.8 cm in the past. Does not look like he has had that followed up, and oblique would be unreasonable to do an abdominal CT to check this. We will try little bit of morphine for his pain. Medical Records Data Attestation: I reviewed the patient's medical records. Lab Data Attestation: I reviewed the patient's lab results. Labs: Lab Results 12/13/22 12/13/22 12/13/22 Range/Units 11:43 11:44 12:00 WBC 5.07 (4.50-11.00) K/uL RBC 4.56 (4.30-5.90) m/uL Hgb 13.1 L (13.5-17.5) gm/dL Hct 38.6 (37.0-53.0) % MCV 85 (80-100) fL MCH 29 (26-34) pg MCHC 34 (32-36) gm/dL RDW Coeff of Kaylen 14.2 (11.5-15.5) % Plt Count 168 (140-440) K/uL Neut % (Auto) 49.7 (42.0-72.0) % Lymph % (Auto) 38.7 (20-44) % [place] % (Auto) 7.1 (0.0-11.0) % Eos % (Auto) 3.9 (0.0-7.0) % Baso % (Auto) 0.4 (0.0-3.0) % Neut # (Auto) 2.52 (1.7-7.0) K/uL Lymph # (Auto) 1.96 (0.90-2.90) K/uL [place] # (Auto) 0.40 (0.00-0.90) K/UL Eos # (Auto) 0.20 (0.00-0.50) K/uL Baso # (Auto) 0.02 (0.00-0.30) K/uL Abs Immat Gran (auto) 0.01 (0.00-0.30) K/uL Imm/Tot Granulo (auto) 0.2 % D-Dimer Quant (PE/DVT) 0.68 H (0.00-0.50) ug/ml Sodium 138 (135-149) mmol/L Potassium 3.3 L (3.6-5.1) mmol/L Chloride 97 (96-114) mmol/L Carbon Dioxide 34 H (20-32) mmol/L BUN 27 (7-30) mg/dL Creatinine 1.3 (0.5-1.5) mg/dL Estimated Creat Clear 52.49 Estimated GFR 62 ml/min Glucose 343 H (60-115) mg/dL Calcium 8.7 (8.4-10.6) mg/dL C-Reactive Protein 2.3 H (0.5-1.0) mg/dL Lipase 85 (23-300) U/L SARS-CoV-2 (PCR) Negative SARS-CoV-2 (Negative) Influenza Type A (PCR) Negative PCR FLU A (Negative) Influenza Type B (PCR) Negative PCR FLU B (Negative) RSV (PCR) Negative PCR RSV (Negative) POC Troponin I 0.00 L (0.01-0.04) ng/ml 12/13/22 Range/Units 13:40 WBC (4.50-11.00) K/uL RBC (4.30-5.90) m/uL Hgb (13.5-17.5) gm/dL Hct (37.0-53.0) % MCV (80-100) fL MCH (26-34) pg MCHC (32-36) gm/dL RDW Coeff of Kaylen (11.5-15.5) % Plt Count (140-440) K/uL Neut % (Auto) (42.0-72.0) % Lymph % (Auto) (20-44) % [place] % (Auto) (0.0-11.0) % Eos % (Auto) (0.0-7.0) % Baso % (Auto) (0.0-3.0) % Neut # (Auto) (1.7-7.0) K/uL Lymph # (Auto) (0.90-2.90) K/uL [place] # (Auto) (0.00-0.90) K/UL Eos # (Auto) (0.00-0.50) K/uL Baso # (Auto) (0.00-0.30) K/uL Abs Immat Gran (auto) (0.00-0.30) K/uL Imm/Tot Granulo (auto) % D-Dimer Quant (PE/DVT) (0.00-0.50) ug/ml Sodium (135-149) mmol/L Potassium (3.6-5.1) mmol/L Chloride (96-114) mmol/L Carbon Dioxide (20-32) mmol/L BUN (7-30) mg/dL Creatinine (0.5-1.5) mg/dL Estimated Creat Clear Estimated GFR ml/min Glucose (60-115) mg/dL Calcium (8.4-10.6) mg/dL C-Reactive Protein (0.5-1.0) mg/dL Lipase (23-300) U/L SARS-CoV-2 (PCR) (Negative) Influenza Type A (PCR) (Negative) Influenza Type B (PCR) (Negative) RSV (PCR) (Negative) POC Troponin I 0.01 (0.01-0.04) ng/ml Other than the glucose being high, his troponins x2 are negative. D-dimer was slightly elevated but I can see no evidence on this study of any large pulmonary emboli, I did do an abdominal CT also given his history in the remote past of a abdominal aortic aneurysm and I can see no evidence of [address] Chest/Ab/Pelvis: Attestation: I have reviewed the pertinent imaging results. My impression: See my note Radiologist's impression: Patient: SKYLAR MCCARTHY Facility: [facility] : 1960 Study: CT Chest/Abd/Pelvis PE A/P 150CC ISOVUE 370-12/13/2022 1:29:18 PM Ordering Physician: Joseph Ledesma Final Report: INDICATION: Chest pain, abdominal pain and elevated D-dimer. COMPARISON: Chest CT dated 07/24/[address] of the abdomen dated 03/27/2022. TECHNIQUE: CTA of the chest, and CT of abdomen and pelvis with IV contrast, 150 cc of Isovue-370 administered. At the request of the ordering physician, 3-D reconstructed images were created on an independent workstation for enhanced visualization of anatomy and pathology. FINDINGS: The main pulmonary artery opacification measures 148 Hounsfield units, therefore inadequate for evaluation for a PE. No obvious saddle PE. Severe coronary artery calcification and/or stent in the LAD. No pericardial effusion. No pleural effusion. Large body habitus. Imaging obtained in expiration, with bowing of the posterior membranes, which limits evaluation of the lung parenchyma. No focal airspace opacity to suggest a large pneumonia. No acute abnormality in the neck base. No suspicious adenopathy. Diffuse hepatic steatosis. Hepatomegaly. Mild nodularity of the liver contour. Patent portal veins. Rim calcification of the splenic artery likely related to diabetes. Cholecystectomy change. Mild splenomegaly by measurements measuring 14.5 cm. Prominent posterior right renal cyst measuring 8.6 cm. No hydronephrosis. Symmetric enhancement of the kidneys. Patent mesenteric and splenic veins. No bowel obstruction. No suspicious urinary bladder abnormality. Fat containing umbilical hernia. No abdominal aortic aneurysm. No suspicious pancreatic abnormality. Adrenal glands appear unremarkable. IMPRESSION: 1. Inadequate opacification of the pulmonary artery. If repeated, the body habitus will still be limiting, however the contrast bolus was predominantly located in the central right upper extremity veins, the SVC and right heart, thus obtained too early. 2. Coronary artery calcification and stent. 3. Diffuse hepatic steatosis and hepatomegaly, and mild splenomegaly. Please note that all CT scans at this facility use dose modulation, iterative reconstruction, and/or weight-based dosing when appropriate to reduce radiation dose to as low as reasonably achievable. Dictated by Jon Shabazz MD @ 12/13/2022 3:22:37 PM (Electronic Signature) ECG Data Attestation: I personally reviewed and interpreted this ECG as follows: ECG interpretation date: 12/13/22 Prior ECG tracings: available for review Interpretation: No evidence of any acute changes seen on EKG. No ST elevation, sinus rhythm wit h first-degree AV block, Discharge Plan Discharge Clinical Impression: History of coronary artery disease, Chest pain Patient Disposition: [facility] Condition: Stable Instructions: Chest Pain (ED), Noncardiac Chest Pain (ED) Additional Instructions: Home rest, do believe a lot your chest pain is from gastric reflux, no evidence of any rise in any of your heart enzymes, or any evidence of 1 of the stents being plugged. There also is no evidence of blood clot to your lungs. So I think there is no evidence of anything bad going on here, just some chronic chest discomfort that she get from time to time. I think it would be reasonable to let her go home, I think following up with Cardiology would be a great thing, for your heart. We do have [facility] coming here to [place]. There is a test called a cardiac PET scan they do this at [facility], and would be the test of choice for you. Activity Level: Light activity Prescriptions: No Action amlodipine 10 mg tablet 10 mg PO DAILY aripiprazole 15 mg tablet 7.5 mg PO DAILY Eliquis 5 mg tablet 5 mg PO BID aspirin 81 mg tablet,delayed release (DR/EC) 81 mg PO DAILY venlafaxine 75 mg capsule,extended release 24hr 225 mg PO DAILY torsemide 20 mg tablet 20 mg PO DAILY isosorbide mononitrate 30 mg tablet extended release 24 hr 30 mg PO DAILY chlorthalidone 25 mg tablet 25 mg PO DAILY carbamazepine 200 mg tablet 200 mg PO BID pravastatin 80 mg tablet 80 mg PO HS pantoprazole 40 mg tablet,delayed release (DR/EC) 40 mg PO DAILY hydralazine 50 mg tablet 50 mg PO QID Patient Comments: 08,12,16,20 ezetimibe 10 mg tablet 10 mg PO DAILY pregabalin 100 mg capsule 100 mg PO QAM pregabalin 150 mg capsule 150 mg PO HS polyethylene glycol 3350 17 gram/dose powder 17 g PO DAILY Rx Instructions: AND TWICE DAILY NEEDED sennosides [senna] 8.6 mg tablet 8.6 mg PO DAILY ketoconazole 2 % shampoo 1 applic TOPICAL Q3D diphenhydramine HCl [Banophen] 50 mg capsule 50 mg PO Q6H PRN (Reason: itching) loperamide 2 mg capsule 2 mg PO Q6H PRN (Reason: loose stool) acetaminophen 500 mg tablet 500 mg PO Q6H nystatin 100,000 unit/gram powder 1 applic TOPICAL BID PRN albuterol sulfate 90 mcg/actuation HFA aerosol inhaler 1 inh INHALATION Q4H PRN (Reason: bronchospasm) icosapent ethyl [Vascepa] 1 gram capsule 2 g PO BID Humulin R U-500 (Conc) Kwikpen 500 unit/mL (3 mL) insulin pen 85 unit SUBCUT TID potassium chloride 20 mEq tablet extended release 20 meq PO DAILY Qty: 10 2RF clotrimazole 1 % cream 1 applic topical BID Rx Instructions: GROIN,PERIAREA AND ABDOMIN fluconazole 150 mg tablet 150 mg PO TUFR@09 gatifloxacin 0.5 % drops 1 drp ophthalmic (eye) QID ketorolac 0.5 % drops 1 drp ophthalmic (eye) QID Rx Instructions: STOP DATE 08/11/22 prednisolone acetate 1 % drops,suspension 1 drp ophthalmic (eye) QID Rx Instructions: STOP DATE 08/12/22 ergocalciferol (vitamin D2) 1,250 mcg (50,000 unit) capsule 50,000 unit PO WE@09 carvedilol 25 mg Tablet 25 mg PO Q12H 30 Days Qty: 60 0RF lisinopril 20 mg Tablet 20 mg PO DAILY 30 Days Qty: 60 0RF amoxicillin-pot clavulanate 875-125 mg tablet 1 tab PO BID 7 Days Qty: 14 0RF nystatin 100,000 unit/gram powder 1 applic topical BID Qty: 30 1RF hydrocortisone 2.5 % cream 1 applic topical BID PRNQty: 30 1RF cephalexin 500 mg capsule 500 mg PO TID 10 Days Qty: 30 0RF potassium chloride 20 mEq packet 20 meq PO DAILY 3 Days Qty: 3 0RF Stand Alone Forms: MyHealth Info Instructions
[2022-12-13] MEDS: MORPHINE 4 MG/ML INJ IVP (11:56)
[2022-12-13 12:05] LABS: Basophils Absolute Auto 0.02 K/uL (0.00-0.30); Basophils Percent Auto 0.4 % (0.0-3.0); Eosinophils Percent Auto 3.9 % (0.0-7.0); Hematocrit 38.6 % (37.0-53.0); Hemoglobin* 13.1 gm/dL (13.5-17.5); Immature Granulocytes Abs Auto 0.01 K/uL (0.00-0.30); Immature Granulocytes Pct Auto 0.2 %; Lymphocytes Absolute Auto 1.96 K/uL (0.90-2.90); Lymphocytes Percent Auto 38.7 % (20-44); Mean Corpuscular HGB Conc 34 gm/dL (32-36); Mean Corpuscular Hemoglobin 29 pg (26-34); Mean Corpuscular Volume 85 fL (80-100); Monocytes Percent Auto 7.1 % (0.0-11.0); Neutrophils Absolute Auto 2.52 K/uL (1.7-7.0); Neutrophils Percent Auto 49.7 % (42.0-72.0); Platelet Count* 168 K/uL (140-440); RDW Coefficient of Variation % 14.2 % (11.5-15.5); Red Blood Count 4.56 m/uL (4.30-5.90); White Blood Count* 5.07 K/uL (4.50-11.00)
--- OUTSIDE RECORDS SUMMARY | 2022-12-13 12:07 | XMS_ITS | CCD ---
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 Name Role Phone Tapan Shirley PA-C Primary Care Provider Unavailabl e Tapan Shirley PA-C Chronic Care Management Unavaila ble Summary Purpose DataExchange Insurance Providers Payer name Policy type / Coverage type Covered libertarian ID Effective Begin Date Effective End Date [place] Part B [id number] Unknown Unknown Medicaid [place] Medicare Part B [id number] Unknown Unknown Family history Sister Brittany Suggs Diagnosis Age At Onset No Family Disease Entered N/A Runs in the family Diagnosis Age At Onset No Known Diseases N/A Sister Blanka Mcduffie Diagnosis Age At Onset No Family Disease Entered N/A Social History Social History Element Codes Description Effec tive Dates Marital status Unknown Single 10/07/2021 Living arrangements Unknown Long-Term 09/03/[address]: 6924003 Non-Smoker / No History of Smoking 09/02/[address]: 476466761 No Alcohol Consum ption 09/02/2020 Allergies, Adverse Reactions, Alerts Substance Reaction Codes Entered Date Inactivated Date Status LISINOPRIL RxNorm: 53351 02/12/2020 No Inactive Da te Active Metformin [...] 08/11/2022 Active Coronary artery disease invo lving [place] coronary artery of [place] heart, angina presence unspecified ICD-10: I25.10 ICD-9: [...] immunization ICD-10: Z23 ICD-9: V03.89 02/10/2022 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 ICD-10: Z79.4 02/10 [...] Instructions nystatin 100,000 unit/gram topical powder RxNorm: 129555 APPLY TO AFFECTED AREAS TOPICALLY 2 TIMES DAILY 11/21/19 024 Active Nystop 100,000 unit/gram topical powder RxNorm: 742492 Apply to abd folds, under breasts and L side of groin Topical BID x 14 days, then BID PRN 11/20/19 23 023 Inactive dx: yeast dermatitis [place] Ultra Strength 4 %-30 %-10 % topical cream RxNorm: 818696 Apply 1 Gram(s) Topical QID PRN to feet and legs for neuropathic pain 11/11/19 23 024 Active hydrocortisone 2.5 % topical cream RxNorm: 891332 Apply 1/2 Gram(s) Topical BID as needed 11/10/19 No Stop Date Active clotrimazole 1 % topical cream RxNorm: 386153 Apply 1/2 Gram(s) Topical BID Apply to affected areas of groin, periarea, and abdominal topically 2 times daily 11/10/19 023 Inactive Levemir FlexPen 100 unit/mL (3 mL) solution subcutaneous insulin pen RxNorm: 435005 Inject 30 Unit(s) Subcutaneous BID 10/07/19 024 Active Humulin R U-500 (Concentrated) Insulin 500 unit/mL subcutaneous soln RxNorm: 700622 Inject 100 Unit(s) Subcutaneous TID 10/07/19 024 Active Ozempic 0.25 mg or 0.5 mg (2 mg/3 mL) subcutaneous pen injector RxNorm: 9155401 Inject 1/2 Milligram(s) Subcutaneous QW once a week 10/07/19 024 Active aripiprazole 15 mg tablet RxNorm: 784576 1/2 TAB (7.5MG) ORALLY DAILY (DX:MAJOR DEPRESSIVE DISORDER) 09/23/19 023 Active Accu-Chek Guide test strips RxNorm: Use 1 Test Strip QID 09/15/19 23 024 Active ok to substitute with any covered alternative test strip Lancets,Thin 28 gauge RxNorm: Use 1 as directed QID 09/15/19 23 024 Active torsemide 20 mg tablet RxNorm: 602592 Take 1 Tablet(s) Oral BID 09/09/19 024 Active d/c once daily dosing carvedilol 25 mg tablet RxNorm: 162704 Take 1 Tablet(s) Oral QD 08/25/19 23 024 Active pregabalin 150 mg capsule RxNorm: 546751 1 Capsule(s) Oral HS at bed time 08/18/19 023 Active pregabalin 100 mg capsule RxNorm: 562084 1 Capsule(s) Oral QAM every morning 08/18/19 023 Active carvedilol 25 mg tablet RxNorm: 623797 1 Tablet(s) Oral QD 07/28/19 23 023 Inactive lisinopril 20 mg tablet RxNorm: 909314 Give 1 Tablet(s) Oral QD 07/28/19 23 023 Inactive Lyrica 150 mg capsule RxNorm: 468326 Take 1 Capsule(s) Oral QHS every night at bedtime 07/19/19 23 023 Inactive d/c 100mg dose Diflucan 150 mg tablet RxNorm: 942989 Take 1 Tablet(s) Oral QD repeat on day 3 and 6 07/19/19 23 023 Inactive pregabalin 100 mg capsule RxNorm: 691388 Take 1 Capsule(s) Oral QAM every morning 07/19/19 023 Inactive gatifloxacin 0.5 % eye drops RxNorm: 519957 Instill 1 Drop(s) as directed TID Instill 1 drop in to affected eye(s) starting 1 day prior to surgery and continue until gone (do not exceed 4 weeks). 07/13/19 23 023 Inactive carvedilol 25 mg tablet RxNorm: 231886 2 Tablet(s) Oral BID 07/13/19 23 023 Inactive Humulin R Regular U-100 Insulin 100 unit/mL injection solution RxNorm: 500657 85 Unit(s) Injection TID 07/13/19 23 023 Inactive ketorolac 0.5 % eye drops RxNorm: 097868 Instill 1 Drop(s) as directed QID Instill 1 drop into affected eye(s) 4 times daily starting 1 day prior to surgery and continue until gone (do not exceed 4 weeks). 07/13/19 23 023 Inactive Diflucan 150 mg tablet RxNorm: 174083 Take 1 Tablet(s) Oral QD repeat on day 3 and 6 06/30/19 23 023 Inactive Accu-Chek Guide test strips RxNorm: Use 1 Test Strip QID Use 1 test strip to monitor blood glucose 4 times daily and as needed. Dx:E11.42. 06/23/19 23 023 Inactive ok to substitute with any covered alternative test strip dextromethorphan-gu aifenesin 10 mg-100 mg/5 mL oral liquid RxNorm: 864575 Take 10 Milliliter(s) Oral every 4 hours as needed for cough 06/19/19 23 023 Inactive dextromethorphan-gu aifenesin 10 mg-100 mg/5 mL oral liquid RxNorm: 317488 Take 10 Milliliter(s) Oral every 4 hours as needed for cough 06/19/19 023 Inactive Lyrica 150 mg capsule RxNorm: 454379 Take 1 Capsule(s) Oral QHS every night at bedtime 06/18/19 023 Inactive d/c 100mg dose aripiprazole 15 mg tablet RxNorm: 880078 1/2 TAB (7.5MG) ORALLY DAILY (DX:MAJOR DEPRESSIVE DISORDER) 06/05/19 023 Inactive pregabalin 100 mg capsule RxNorm: 084626 1 Capsule(s) Oral QAM every morning 06/02/19 023 Inactive Banophen 50 mg capsule RxNorm: 7017577 Take 1 Capsule(s) Oral Q6H every 6 hours as needed 05/19/19 23 No Stop Date Active Novolog Flexpen U-100 Insulin aspart 100 unit/mL (3 mL) subcutaneous RxNorm: 9819384 Inject 10 Unit(s) Subcutaneous QHS every night at bedtime with nighttime snack 04/08/20 022 Inactive Novolog Flexpen U-100 Insulin aspart 100 unit/mL (3 mL) subcutaneous RxNorm: 4914493 Inject 42 Unit(s) Subcutaneous TID in addition to sliding scale 04/08/20 022 Inactive d/c 36u albuterol sulfate HFA 90 mcg/actuation aerosol inhaler RxNorm: 9044749 Take 2 Puff(s) Inhalation Q4H every four hours as needed as needed for SOB, cough, or wheezing 04/07/20 030 Active Banophen 50 mg capsule RxNorm: 6321165 Take 1 Capsule(s) Oral Q6H every 6 hours as needed 04/06/20 023 Inactive diphenhydramine 50 mg tablet RxNorm: 7895165 Take 1 Tablet(s) Oral Q6H every 6 hours as needed 04/06/20 22 022 Inactive diphenhydramine 50 mg tablet RxNorm: 9223015 1 Tablet(s) Oral Q6H every 6 hours as needed 04/06/20 022 Inactive Abilify 15 mg tablet RxNorm: 652402 1/2 Tablet(s) Oral QD 03/10/20 22 023 Inactive Shingrix (PF) 50 mcg/0.5 mL intramuscular suspension, kit RxNorm: 5363656 Administer 1/2 Milliliter(s) Intramuscular QD one time shingrix step 2 ( step 1 given 11/04/21) WITH needle - Nursing please administer upon arrival and once administered post a bridge message with date of administration, courtroom clerk, expiration date, and lot# so we can update [facility] 02/18/20 022 Inactive dispense with needle Shingrix (PF) 50 mcg/0.5 mL intramuscular suspension, kit RxNorm: 5747112 Administer 1/2 Milliliter(s) Intramuscular QD one time shingrix step 2 ( step 1 given 11/04/21) WITH needle - Nursing please administer upon arrival and once administered post a bridge message with date of administration, courtroom clerk, expiration date, and lot# so we can update [facility] 02/18/20 22 022 Inactive dispense with needle acetaminophen 500 mg tablet RxNorm: 716215 Take 1 Tablet(s) Oral TID 01/08/20 22 023 Active d/c PRN order polyethylene glycol 3350 17 gram/dose oral powder RxNorm: 384002 Take 17=1 capful Gram(s) Oral QD mix with 4-8oz of liquid 01/08/20 22 023 Active take this in addition to BID prn order Lyrica 100 mg capsule RxNorm: 793748 Take 1 Capsule(s) Oral QAM every morning 01/08/20 22 022 Inactive d/c 50mg dose Lyrica 150 mg capsule RxNorm: 206658 Take 1 Capsule(s) Oral QHS every night at bedtime 01/08/20 22 023 Inactive d/c 100mg dose Abilify 5 mg tablet RxNorm: 454357 Take 1 Tablet(s) Oral QD take 1 tab po QD #30 refill 5 dx: MDD 12/12/19 22 022 Inactive Abilify 5 mg tablet RxNorm: 655336 Take 1 Tablet(s) Oral QD take 1 tab po QD #30 refill 5 dx: MDD 12/12/19 22 022 Inactive Novolog Flexpen U-100 Insulin aspart 100 unit/mL (3 mL) subcutaneous RxNorm: 0063614 Inject 42 Unit(s) Subcutaneous TID in addition to sliding scale 12/10/19 22 022 Inactive d/c 36u chlorthalidone 25 mg tablet RxNorm: 508170 Take 1 Tablet(s) Oral QAM every morning 12/10/19 22 023 Inactive pregabalin 50 mg capsule RxNorm: 855034 Take 1 Capsule(s) Oral QAM every morning 11/12/19 22 022 Inactive tetanus-diphtheria toxoids-Td 2 Lf unit-2 Lf unit/0.5 mL IM suspension RxNorm: 139 Take 0.5 Miscellaneous Intramuscular 11/12/19 22 022 Inactive need tdap - nursing to administer upon arrival pregabalin 50 mg capsule RxNorm: 116042 Take 1 Capsule(s) Oral QAM every morning 10/16/19 22 022 Inactive pregabalin 50 mg capsule RxNorm: 122613 Take 1 Capsule(s) Oral QAM every morning 10/16/19 22 022 Inactive pregabalin 50 mg capsule RxNorm: 326718 1 Capsule(s) Oral QAM every morning 10/15/19 22 022 Inactive Shingrix (PF) 50 mcg/0.5 mL intramuscular suspension, kit RxNorm: 0390850 Administer 1/2 Milliliter(s) Intramuscular one time Nursing please administer upon arrival and once administered post a bridge message with date of administration, courtroom clerk, expiration date, and lot# so we can update [facility]. 10/09/19 22 022 Inactive shingrix step 1 Shingrix (PF) 50 mcg/0.5 mL intramuscular suspension, kit RxNorm: 8748459 Administer 1/2 Milliliter(s) Intramuscular one time Nursing please administer upon arrival and once administered post a bridge message with date of administration, courtroom clerk, expiration date, and lot# so we can update [facility]. 10/09/19 22 Inactive shingrix step 1 cholecalciferol (vitamin D3) 1,250 mcg (50,000 unit) capsule RxNorm: 501263 Take 1 Capsule(s) Oral QW once a [...] aspart 100 unit/mL (3 mL) subcutaneous RxNorm: 9149351 Inject 10 Unit(s) Subcutaneous QHS every night at bedtime with nighttime snack 10/08/19 22 Inactive Shingrix (PF) 50 mcg/0.5 mL intramuscular suspension, kit RxNorm: 2731309 ADMINISTER 2-DOSE SERIES PER CDC GUIDELINES 10/08/19 22 022 Active Shingrix (PF) 50 mcg/0.5 mL intramuscular suspension, kit RxNorm: 1595097 ADMINISTER 2-DOSE SERIES PER CDC GUIDELINES 10/08/19 22 Inactive Novolog Flexpen U-100 Insulin aspart 100 unit/mL (3 mL) subcutaneous RxNorm: 4368388 Inject 36 Unit(s) Subcutaneous TID in addition to sliding scale 10/08/19 22 Inactive Novofine Autocover 30 gauge x 1/3 needle RxNorm: Use 1 Miscellaneous UD as directed Use 1 needle as directed to administer insulin 5 times a day Dx:E11.42. 10/03/19 22 022 Inactive ok to substitute with any covered alternative pen needle benzoyl peroxide 10 % topical cleanser RxNorm: 316158 Apply 1 Application Topical QD apply to face, wash rinse and dry once daily (may change to QOD if drying) 08/19/19 22 022 Inactive (%covered by insurance) #60ml refill 11 dx: acne benzoyl peroxide 10 % topical cleanser RxNorm: 746088 Apply 1 Application Topical QD apply to face, wash rinse and dry once daily (may change to QOD if drying) 08/19/19 22 022 Inactive (%covered by insurance) #60ml refill 11 dx: acne benzoyl peroxide 10 % topical cleanser RxNorm: 237320 Apply 1 Application Topical QD apply to face, wash rinse and dry once daily (may change to QOD if drying) 08/19/19 22 022 Inactive (%covered by insurance) #60ml refill 11 dx: acne Lyrica 50 mg capsule RxNorm: 802803 Take 1 Capsule(s) Oral QAM every morning Take 1 capsule by mouth once daily 08/19/19 022 Inactive benzoyl peroxide 10 % topical cleanser RxNorm: 489845 Apply 1 Application Topical QD apply to face, wash rinse and dry once daily (may change to QOD if drying) 08/19/19 22 022 Inactive (%covered by insurance) #60ml refill 11 dx: acne Lyrica 100 mg capsule RxNorm: 162161 Take 1 Capsule(s) Oral QHS every night at bedtime Take 1 capsule by mouth once daily at bedtime 08/19/19 22 022 Inactive Lyrica 100 mg capsule RxNorm: 315393 Take 1 Capsule(s) Oral QHS every night at bedtime Take 1 capsule by mouth once daily at bedtime 08/16/19 022 Inactive Lyrica 50 mg capsule RxNorm: 824816 Take 1 Capsule(s) Oral QAM every morning Take 1 capsule by mouth once daily 08/16/19 22 022 Inactive Levemir FlexTouch U-100 Insulin 100 unit/mL (3 mL) subcutaneous pen RxNorm: 543344 Inject 86 Unit(s) Subcutaneous BID 08/05/19 22 022 Inactive d/c 83units BID Lyrica 100 mg capsule RxNorm: 177504 Take 1 Capsule(s) Oral QHS every night at bedtime Take 1 capsule by mouth once daily at bedtime 07/14/19 22 Inactive Lyrica 50 mg capsule RxNorm: 218987 Take 1 Capsule(s) Oral QAM every morning Take 1 capsule by mouth once daily 07/14/19 22 Inactive Levemir FlexTouch U-100 Insulin 100 unit/mL (3 mL) subcutaneous pen RxNorm: 516051 Inject 83 Unit(s) Subcutaneous BID 07/08/19 22 [...] 30 mg tablet,extended release 24 hr RxNorm: 870159 Take 1 Tablet(s) Oral QD 05/05/20 No Stop Date Active hydralazine 50 mg tablet RxNorm: 843562 Take 1 Tablet(s) Oral QID 05/05/20 022 Inactive venlafaxine ER 225 mg tablet,extended release 24 hr RxNorm: 613839 Take 1 Tablet(s) Oral QD 05/05/20 Inactive venlafaxine ER 225 mg tablet,extended release 24 hr RxNorm: 919833 Take 1 Tablet(s) Oral QD 05/05/20 022 Inactive hydralazine 50 mg tablet RxNorm: 998500 Take 1 Tablet(s) Oral QID 05/05/20 Inactive aspirin 81 mg tablet,delayed release RxNorm: 440078 Take 1 Tablet(s) Oral QD 03/31/20 Inactive Zetia 10 mg tablet RxNorm: 415709 Take 1 Tablet(s) Oral QD 03/31/20 Inactive Vitamin D2 1,250 mcg (50,000 unit) capsule RxNorm: 0251014 Take 1 Capsule(s) Oral QW once a week x 12 weeks 03/31/20 Inactive Vitamin D2 1,250 mcg (50,000 unit) capsule RxNorm: 1680248 Take 1 Capsule(s) Oral QW once a week 03/31/20 Inactive Zetia 10 mg tablet RxNorm: 971433 Take 1 Tablet(s) Oral QD 03/31/20 Inactive hydralazine 25 mg tablet RxNorm: 547492 Take 1 Tablet(s) Oral QID 03/31/20 Inactive hydralazine 25 mg tablet RxNorm: 449236 Take 1 Tablet(s) Oral QID 03/31/20 021 Inactive hydralazine 10 mg tablet RxNorm: 723551 Take 1 Tablet(s) Oral QID 10/18/20 21 11/14/2 021 Inactive cephalexin 500 mg tablet RxNorm: 668940 Take 1 Tablet(s) Oral QID 02/27/20 021 Inactive cephalexin 500 mg tablet RxNorm: 637096 Take 1 Tablet(s) Oral QID 02/27/20 021 Inactive lisinopril 40 mg tablet RxNorm: 434438 Take 1 Tablet(s) Oral QD 02/11/20 023 Inactive Eliquis 5 mg tablet RxNorm: 1597547 Take 1 Tablet(s) Oral BID 01/05/20 21 022 Inactive Eliquis 5 mg tablet RxNorm: 0297708 Take 2 Tablet(s) Oral QD 01/01/20 21 021 Inactive Lyrica 50 mg capsule RxNorm: 779110 Take 1 Capsule(s) Oral QAM every morning 12/24/19 021 Inactive Lyrica 100 mg capsule RxNorm: 389741 Take 1 Capsule(s) Oral QHS every night at bedtime 12/24/19 021 Inactive clotrimazole 1 % topical cream RxNorm: 382510 Apply to right foot and toes Topical BID 12/04/19 21 023 Inactive metoprolol succinate ER 200 mg tablet,extended release 24 hr RxNorm: 490396 Take 1 Tablet(s) Oral QD 12/04/19 023 Inactive ciprofloxacin 500 mg tablet RxNorm: 850704 Take 1 Tablet(s) Oral QD 11/30/19 021 Inactive DX ofloxacin otic drops Accu-Chek Guide test strips RxNorm: USE 1 TO CHECK GLUCOSE 4 TIMES DAILY AND NEEDED 11/15/19 21 023 Inactive Blood Glucose Test strips RxNorm: Use 1 Test Strip QID at PRN 11/05/19 21 023 Inactive E11.42 lisinopril 30 mg tablet RxNorm: 919284 Take 1 Tablet(s) Oral QD 10/30/19 021 Inactive lisinopril 20 mg tablet RxNorm: 999981 Take 1 Tablet(s) Oral QD 10/23/19 21 021 Inactive lisinopril 20 mg tablet RxNorm: 713927 Take 1 Tablet(s) Oral QD 10/23/19 21 Inactive lisinopril 10 mg tablet RxNorm: 567333 Take 1 Tablet(s) Oral QD 10/02/19 21 021 Inactive icosapent ethyl 1 gram capsule RxNorm: 6811828 Take 2 Capsule(s) (2 gm) Oral BID with meals 09/12/19 022 Inactive Okay to dispense one 2gm tab if you have that available. icosapent ethyl 1 gram capsule RxNorm: 6519816 Take 2 Capsule(s) Oral BID 09/12/19 021 Inactive Okay to dispense one 2gm tab if you have that available. amlodipine 10 mg tablet RxNorm: 632020 Take 1 Tablet(s) Oral QD 09/04/19 Inactive aspirin 81 mg tablet,delayed release RxNorm: 127104 Take 1 Tablet(s) Oral QD 09/04/19 Inactive Levemir FlexTouch U-100 Insulin 100 unit/mL (3 mL) subcutaneous pen RxNorm: 014762 Inject 150 Unit(s) Subcutaneous BID 09/04/19 Inactive venlafaxine ER 150 mg tablet,extended release 24 hr RxNorm: 738919 Take 1 Tablet(s) Oral QD 09/04/19 Inactive clotrimazole-betame thasone 1 %-0.05 % topical cream RxNorm: 476421 Apply to rash on red area on left abdomen/chest Topical BID 08/10/19 21 Inactive amlodipine 5 mg tablet RxNorm: 911757 Take 1 Tablet(s) Oral QD 07/31/19 21 Inactive cephalexin 500 mg tablet RxNorm: 339436 Take 1 Tablet(s) Oral BID BID - Twice Daily 07/31/19 21 021 Inactive Start 08/01/20 pantoprazole 40 mg tablet,delayed release RxNorm: 557511 Take 1 Tablet(s) Oral QAM every morning 07/08/19 21 022 Inactive senna 8.6 mg tablet RxNorm: 414522 Take 1 Tablet(s) Oral QD 07/08/19 21 022 Inactive pravastatin 80 mg tablet RxNorm: 542954 Take 1 Tablet(s) Oral QHS every night at bedtime 07/08/19 21 Inactive carbamazepine 200 mg tablet RxNorm: 533321 Take 1 Tablet(s) Oral BID 07/08/19 022 Inactive clopidogrel 75 mg tablet RxNorm: 961035 Take 1 Tablet(s) Oral QD 07/08/19 21 021 Inactive Blood Glucose Test strips RxNorm: Use 1 Test Strip QID at PRN 07/08/19 21 Inactive E11.42 Novolog Flexpen U-100 Insulin aspart 100 unit/mL (3 mL) subcutaneous RxNorm: 1803899 Administer per sliding scale Milliliter(s) Subcutaneous TID 151-200: 10 u; 201-250: 20 u; 251-300: 30 u; 301-350: 40 u; 351-400: 50 u. 07/08/19 21 022 Inactive lisinopril 5 mg tablet RxNorm: 280589 Take 1 Tablet(s) Oral QD 07/08/19 Inactive Novolog Flexpen U-100 Insulin aspart 100 unit/mL (3 mL) subcutaneous RxNorm: 3547010 Inject 85 Unit(s) Subcutaneous TID 07/08/19 Inactive clotrimazole 1 % topical cream RxNorm: 019678 Apply to bilateral groin areas Topical BID 07/08/19 21 Inactive metoprolol succinate ER 200 mg tablet,extended release 24 hr RxNorm: 124061 Take 1 Tablet(s) Oral QD 07/08/19 21 Inactive Vitamin D3 25 mcg (1,000 unit) tablet RxNorm: 022593 Take 1 Tablet(s) Oral QD 07/08/19 21 Inactive isosorbide dinitrate 30 mg tablet RxNorm: 510673 Take 1 Tablet(s) Oral QD 07/08/19 21 021 Inactive Levemir FlexTouch U-100 Insulin 100 unit/mL (3 mL) subcutaneous pen RxNorm: 386187 Inject 140 Unit(s) Subcutaneous BID 07/08/19 21 021 Inactive torsemide 20 mg tablet RxNorm: 090977 Take 1 Tablet(s) Oral QD 07/08/19 21 023 Inactive venlafaxine 75 mg tablet RxNorm: 176219 Take 1 Tablet(s) Oral QD 07/08/19 021 Inactive acetaminophen 500 mg tablet RxNorm: 838175 Take 1 Tablet(s) Oral TID as needed for headache 06/18/19 21 021 Inactive acetaminophen 500 mg tablet RxNorm: 317891 Take 1 Tablet(s) Oral TID as needed for headache 06/18/19 021 Inactive Lyrica 100 mg capsule RxNorm: 011101 Take 1 Capsule(s) Oral QHS every night at bedtime 06/11/19 21 021 Inactive Lyrica 50 mg capsule RxNorm: 029182 Take 1 Capsule(s) Oral QAM every morning 06/10/19 21 021 Inactive hydrocortisone 2.5 % topical cream RxNorm: 011780 Apply to bilateral groin creases Topical BID 05/15/20 20 021 Inactive clotrimazole 1 % topical cream RxNorm: 247222 Apply to bilateral groin areas Topical BID 05/15/20 20 021 Inactive Lyrica 50 mg capsule RxNorm: 306018 Take 1 Capsule(s) Oral QAM every morning 05/14/20 20 020 Inactive Lyrica 100 mg capsule RxNorm: 406716 Take 1 Capsule(s) Oral QHS every night [...] Inactive Nystop 100,000 unit/gram topical powder RxNorm: 115535 Apply to abd folds, under breasts and L side of groin Topical BID x 14 days, then BID PRN 04/08/20 20 Inactive dx: yeast dermatitis Lyrica 100 mg capsule RxNorm: 506320 Take 1 Capsule(s) Oral QHS every night at bedtime 03/13/20 20 Inactive Lyrica 50 mg capsule RxNorm: 877284 Take 1 Capsule(s) Oral QAM every morning 03/13/20 20 Inactive ketoconazole 2 % shampoo RxNorm: 248899 Apply Topical two times a week with showers 03/11/20 20 Inactive cholecalciferol (vitamin D3) 50 mcg (2,000 unit) tablet RxNorm: 838751 Take 1 Tablet(s) Oral QD 03/11/20 20 Inactive Zetia 10 mg tablet RxNorm: 232628 Take 1 Tablet(s) Oral QD 03/07/20 20 021 Inactive Zetia 10 mg tablet RxNorm: 454304 Take 1 Tablet(s) Oral QD 03/07/20 20 Inactive Lyrica 50 mg capsule RxNorm: 279542 Take 1 Capsule(s) Oral QAM every morning 02/15/20 20 Inactive Lyrica 100 mg capsule RxNorm: 841804 Take 1 Capsule(s) Oral QHS every night at bedtime 02/15/20 20 Inactive Lyrica 100 mg capsule RxNorm: 202958 Take 1 Capsule(s) Oral QHS every night at bedtime 02/15/20 20 Inactive Lyrica 50 mg capsule RxNorm: 728756 Take 1 Capsule(s) Oral QAM every morning 02/15/20 20 020 Inactive venlafaxine ER 75 mg capsule,extended release 24 hr RxNorm: 283558 Take 3 Capsule(s) Oral QD 06/12/19 Active polyethylene glycol 3350 17 gram/dose oral powder RxNorm: 504535 Take 17=1 capful Gram(s) Oral BID as needed mix with 4-8oz of liquid 06/12/19 Active metoprolol succinate ER 200 mg tablet,extended release 24 hr RxNorm: 434327 Take 1 Tablet(s) Oral QD 08/12/19 Active loperamide 2 mg capsule RxNorm: 831994 Take 1 Capsule(s) Oral QID as needed 06/12/19 Active hydralazine 50 mg tablet RxNorm: 406350 Take 1 Tablet(s) Oral QID 08/12/19 23 Active icosapent ethyl 1 gram capsule RxNorm: 4305223 Take 2 Capsule(s) (2 gm) Oral BID with meals 10/07/19 23 023 Inactive Okay to dispense one 2gm tab if you have that available. Levemir FlexTouch U-100 Insulin 100 unit/mL (3 mL) subcutaneous pen RxNorm: 174348 Inject 80 Unit(s) Subcutaneous BID 07/14/19 23 023 Inactive Novolog Flexpen U-100 Insulin aspart 100 unit/mL (3 mL) subcutaneous RxNorm: 8541022 Insert 30 Unit(s) Subcutaneous TID with meals [...] [facility] WPtel: [address] [id number] [place] Referral Records Received 09/21/2022 Referral: [facility] WPtel: [address] [id number] [place] Referral Completed 05/28/2021 Referral: General Cardiology Referral Complet ed 01/03/2021 Referral: General Psychologist Referral Close d Instructions Comment Date Leonid is a?? Male being seen living at [facility]. Initial [facility] visit 01/2020. PMHx including DMII, CAD w/ 5 stents, Depression, Seizure Disorder and CKD stage 3. He moved into [facility] in 12/2019 but after a hospitalization 05/2021 [facility] attention.??Sister Jyotsna involved in his care cell# [phone]??Guardian: Don (tapan met in person 09/01/21), now has Lexii (same group as don)Lab Schedule: * 10/06/2022
--- OUTSIDE RECORDS SUMMARY | 2022-12-13 12:07 | XMS_ITS | CCD ---
Author Name Tapan Shirley PA-C Address [address] 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 Role Phone Tapan Shirley PA-C Primary Care Provider Unavailabl e Tapan Shirley PA-C Chronic Care Management Unavaila ble Summary Purpose DataExchange Insurance Providers Payer name Policy type / Coverage type Covered constitution party ID Effective Begin Date Effective End Date [place] Medicare Part B [id number] Unknown Unknown Medicaid [place] Medicare Part B [id number] Unknown Unknown Family history Sister Brittany Suggs [...] Snf 09/03/[address]: 1233949 Non-Smoker / No History of Smoking 09/02/[address]: 303514006 No Alcohol Consum ption 09/02/2020 Allergies, Adverse Reactions, Alerts Substance Reaction Codes Entered Date Inactivated Date Status LISINOPRIL RxNorm: 26625 02/12/2020 No Inactive Da te Active Metformin [...] 08/11/2022 Active Coronary artery disease invo lving [place] coronary artery of [place] heart, angina presence unspecified ICD-10: I25.10 ICD-9: [...] immunization ICD-10: Z23 ICD-9: V03.89 02/10/2022 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 ICD-10: Z79.4 02/10 [...] Instructions nystatin 100,000 unit/gram topical powder RxNorm: 533941 APPLY TO AFFECTED AREAS TOPICALLY 2 TIMES DAILY 11/21/19 23 024 Active Nystop 100,000 unit/gram topical powder RxNorm: 246339 Apply to abd folds, under breasts and L side of groin Topical BID x 14 days, then BID PRN 11/20/19 23 023 Inactive dx: yeast dermatitis [place] Ultra Strength 4 %-30 %-10 % topical cream RxNorm: 551348 Apply 1 Gram(s) Topical QID PRN to feet and legs for neuropathic pain 11/11/19 024 Active hydrocortisone 2.5 % topical cream RxNorm: 574940 Apply 1/2 Gram(s) Topical BID as needed 11/10/19 No Stop Date Active clotrimazole 1 % topical cream RxNorm: 961869 Apply 1/2 Gram(s) Topical BID Apply to affected areas of groin, periarea, and abdominal topically 2 times daily 11/10/19 023 Inactive Levemir FlexPen 100 unit/mL (3 mL) solution subcutaneous insulin pen RxNorm: 617809 Inject 30 Unit(s) Subcutaneous BID 10/07/19 024 Active Humulin R U-500 (Concentrated) Insulin 500 unit/mL subcutaneous soln RxNorm: 398778 Inject 100 Unit(s) Subcutaneous TID 10/07/19 024 Active Ozempic 0.25 mg or 0.5 mg (2 mg/3 mL) subcutaneous pen injector RxNorm: 9118287 Inject 1/2 Milligram(s) Subcutaneous QW once a week 10/07/19 024 Active aripiprazole 15 mg tablet RxNorm: 406098 1/2 TAB (7.5MG) ORALLY DAILY (DX:MAJOR DEPRESSIVE DISORDER) 09/23/19 023 Active Accu-Chek Guide test strips RxNorm: Use 1 Test Strip QID 09/15/19 23 024 Active ok to substitute with any covered alternative test strip Lancets,Thin 28 gauge RxNorm: Use 1 as directed QID 09/15/19 23 024 Active torsemide 20 mg tablet RxNorm: 729547 Take 1 Tablet(s) Oral BID 09/09/19 024 Active d/c once daily dosing carvedilol 25 mg tablet RxNorm: 506880 Take 1 Tablet(s) Oral QD 08/25/19 024 Active pregabalin 150 mg capsule RxNorm: 143252 1 Capsule(s) Oral HS at bed time 08/18/19 023 Active pregabalin 100 mg capsule RxNorm: 101177 1 Capsule(s) Oral QAM every morning 08/18/19 23 023 Active carvedilol 25 mg tablet RxNorm: 383895 1 Tablet(s) Oral QD 07/28/19 23 023 Inactive lisinopril 20 mg tablet RxNorm: 484414 Give 1 Tablet(s) Oral QD 07/28/19 23 023 Inactive Lyrica 150 mg capsule RxNorm: 968395 Take 1 Capsule(s) Oral QHS every night at bedtime 07/19/19 23 023 Inactive d/c 100mg dose Diflucan 150 mg tablet RxNorm: 547280 Take 1 Tablet(s) Oral QD repeat on day 3 and 6 07/19/19 23 023 Inactive pregabalin 100 mg capsule RxNorm: 410933 Take 1 Capsule(s) Oral QAM every morning 07/19/19 023 Inactive gatifloxacin 0.5 % eye drops RxNorm: 402395 Instill 1 Drop(s) as directed TID Instill 1 drop in to affected eye(s) starting 1 day prior to surgery and continue until gone (do not exceed 4 weeks). 07/13/19 23 023 Inactive carvedilol 25 mg tablet RxNorm: 854700 2 Tablet(s) Oral BID 07/13/19 023 Inactive Humulin R Regular U-100 Insulin 100 unit/mL injection solution RxNorm: 368413 85 Unit(s) Injection TID 07/13/19 23 023 Inactive ketorolac 0.5 % eye drops RxNorm: 276040 Instill 1 Drop(s) as directed QID Instill 1 drop into affected eye(s) 4 times daily starting 1 day prior to surgery and continue until gone (do not exceed 4 weeks). 07/13/19 23 023 Inactive Diflucan 150 mg tablet RxNorm: 439557 Take 1 Tablet(s) Oral QD repeat on day 3 and 6 06/30/19 23 023 Inactive Accu-Chek Guide test strips RxNorm: Use 1 Test Strip QID Use 1 test strip to monitor blood glucose 4 times daily and as needed. Dx:E11.42. 06/23/19 023 Inactive ok to substitute with any covered alternative test strip dextromethorphan-gu aifenesin 10 mg-100 mg/5 mL oral liquid RxNorm: 828382 Take 10 Milliliter(s) Oral every 4 hours as needed for cough 06/19/19 023 Inactive dextromethorphan-gu aifenesin 10 mg-100 mg/5 mL oral liquid RxNorm: 029399 Take 10 Milliliter(s) Oral every 4 hours as needed for cough 06/19/19 023 Inactive Lyrica 150 mg capsule RxNorm: 026856 Take 1 Capsule(s) Oral QHS every night at bedtime 06/18/19 023 Inactive d/c 100mg dose aripiprazole 15 mg tablet RxNorm: 561310 /2 TAB (7.5MG) ORALLY DAILY (DX:MAJOR DEPRESSIVE DISORDER) 06/05/19 023 Inactive pregabalin 100 mg capsule RxNorm: 061522 1 Capsule(s) Oral QAM every morning 06/02/19 023 Inactive Banophen 50 mg capsule RxNorm: 6362564 Take 1 Capsule(s) Oral Q6H every 6 hours as needed 05/19/19 23 No Stop Date Active Novolog Flexpen U-100 Insulin aspart 100 unit/mL (3 mL) subcutaneous RxNorm: 7917130 Inject 10 Unit(s) Subcutaneous QHS every night at bedtime with nighttime snack 04/08/20 022 Inactive Novolog Flexpen U-100 Insulin aspart 100 unit/mL (3 mL) subcutaneous RxNorm: 9250837 Inject 42 Unit(s) Subcutaneous TID in addition to sliding scale 04/08/20 022 Inactive d/c 36u albuterol sulfate HFA 90 mcg/actuation aerosol inhaler RxNorm: 0254317 Take 2 Puff(s) Inhalation Q4H every four hours as needed as needed for SOB, cough, or wheezing 04/07/20 22 030 Active Banophen 50 mg capsule RxNorm: 2942849 Take 1 Capsule(s) Oral Q6H every 6 hours as needed 04/06/20 023 Inactive diphenhydramine 50 mg tablet RxNorm: 6129337 Take 1 Tablet(s) Oral Q6H every 6 hours as needed 04/06/20 022 Inactive diphenhydramine 50 mg tablet RxNorm: 6091224 1 Tablet(s) Oral Q6H every 6 hours as needed 04/06/20 022 Inactive Abilify 15 mg tablet RxNorm: 874881 1/2 Tablet(s) Oral QD 03/10/20 023 Inactive Shingrix (PF) 50 mcg/0.5 mL intramuscular suspension, kit RxNorm: 7339765 Administer 1/2 Milliliter(s) Intramuscular QD one time shingrix step 2 ( step 1 given 11/04/21) WITH needle - Nursing please administer upon arrival and once administered post a 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, 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, 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, and lot# so we can update MIIC 02/18/20 22 022 Inactive dispense with needle Shingrix (PF) 50 mcg/0.5 mL intramuscular suspension, kit RxNorm: 7095151 Administer 1/2 Milliliter(s) Intramuscular QD one time shingrix step 2 ( step 1 given 11/04/21) WITH needle - Nursing please administer upon arrival and once administered post a 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, 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, 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, and lot# so we can update MIIC 02/18/20 22 022 Inactive dispense with needle acetaminophen 500 mg tablet RxNorm: 339379 Take 1 Tablet(s) Oral TID 01/08/20 22 023 Active d/c PRN order polyethylene glycol 3350 17 gram/dose oral powder RxNorm: 019552 Take 17=1 capful Gram(s) Oral QD mix with 4-8oz of liquid 01/08/20 22 023 Active take this in addition to BID prn order Lyrica 100 mg capsule RxNorm: 899678 Take 1 Capsule(s) Oral QAM every morning 01/08/20 22 022 Inactive d/c 50mg dose Lyrica 150 mg capsule RxNorm: 685285 Take 1 Capsule(s) Oral QHS every night at bedtime 01/08/20 22 023 Inactive d/c 100mg dose Abilify 5 mg tablet RxNorm: 519233 Take 1 Tablet(s) Oral QD take 1 tab po QD #30 refill 5 dx: MDD 12/12/19 22 022 Inactive Abilify 5 mg tablet RxNorm: 130134 Take 1 Tablet(s) Oral QD take 1 tab po QD #30 refill 5 dx: MDD 12/12/19 22 022 Inactive Novolog Flexpen U-100 Insulin aspart 100 unit/mL (3 mL) subcutaneous RxNorm: 6324602 Inject 42 Unit(s) Subcutaneous TID in addition to sliding scale 12/10/19 22 022 Inactive d/c 36u chlorthalidone 25 mg tablet RxNorm: 084351 Take 1 Tablet(s) Oral QAM every morning 12/10/19 22 023 Inactive pregabalin 50 mg capsule RxNorm: 197399 Take 1 Capsule(s) Oral QAM every morning 11/12/19 22 022 Inactive tetanus-diphtheria toxoids-Td 2 Lf unit-2 Lf unit/0.5 mL IM suspension RxNorm: 139 Take 0.5 Miscellaneous Intramuscular 11/12/19 22 022 Inactive need tdap - nursing to administer upon arrival pregabalin 50 mg capsule RxNorm: 542972 Take 1 Capsule(s) Oral QAM every morning 10/16/19 22 022 Inactive pregabalin 50 mg capsule RxNorm: 784742 Take 1 Capsule(s) Oral QAM every morning 10/16/19 22 022 Inactive pregabalin 50 mg capsule RxNorm: 915403 1 Capsule(s) Oral QAM every morning 10/15/19 22 022 Inactive Shingrix (PF) 50 mcg/0.5 mL intramuscular suspension, kit RxNorm: 1921617 Administer 1/2 Milliliter(s) Intramuscular one time Nursing please administer upon arrival and once administered post a bridge message 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 10/09/19 22 Inactive shingrix step 1 cholecalciferol (vitamin D3) 1,250 mcg (50,000 unit) capsule RxNorm: 881675 Take 1 Capsule(s) Oral QW once a [...] aspart 100 unit/mL (3 mL) subcutaneous RxNorm: 6163944 Inject 10 Unit(s) Subcutaneous QHS every night at bedtime with nighttime snack 10/08/19 22 Inactive Shingrix (PF) 50 mcg/0.5 mL intramuscular suspension, kit RxNorm: 5165924 ADMINISTER 2-DOSE SERIES PER CDC GUIDELINES 10/08/19 22 Active Shingrix (PF) 50 mcg/0.5 mL intramuscular suspension, kit RxNorm: 3390808 ADMINISTER 2-DOSE SERIES PER CDC GUIDELINES 10/08/19 22 Inactive Novolog Flexpen U-100 Insulin aspart 100 unit/mL (3 mL) subcutaneous RxNorm: 3623640 Inject 36 Unit(s) Subcutaneous TID in addition to sliding scale 10/08/19 22 Inactive Novofine Autocover 30 gauge x 1/3 needle RxNorm: Use 1 Miscellaneous UD as directed Use 1 needle as directed to administer insulin 5 times a day Dx:E11.42. 10/03/19 22 022 Inactive ok to substitute with any covered alternative pen needle benzoyl peroxide 10 % topical cleanser RxNorm: 917370 Apply 1 Application Topical QD apply to face, wash rinse and dry once daily (may change to QOD if drying) 08/19/19 22 022 Inactive (%covered by insurance) #60ml refill 11 dx: acne benzoyl peroxide 10 % topical cleanser RxNorm: 010205 Apply 1 Application Topical QD apply to face, wash rinse and dry once daily (may change to QOD if drying) 08/19/19 22 022 Inactive (%covered by insurance) #60ml refill 11 dx: acne benzoyl peroxide 10 % topical cleanser RxNorm: 864477 Apply 1 Application Topical QD apply to face, wash rinse and dry once daily (may change to QOD if drying) 08/19/19 22 022 Inactive (%covered by insurance) #60ml refill 11 dx: acne Lyrica 50 mg capsule RxNorm: 112628 Take 1 Capsule(s) Oral QAM every morning Take 1 capsule by mouth once daily 08/19/19 22 022 Inactive benzoyl peroxide 10 % topical cleanser RxNorm: 540666 Apply 1 Application Topical QD apply to face, wash rinse and dry once daily (may change to QOD if drying) 08/19/19 022 Inactive (%covered by insurance) #60ml refill 11 dx: acne Lyrica 100 mg capsule RxNorm: 109561 Take 1 Capsule(s) Oral QHS every night at bedtime Take 1 capsule by mouth once daily at bedtime 08/19/19 22 022 Inactive Lyrica 100 mg capsule RxNorm: 223113 Take 1 Capsule(s) Oral QHS every night at bedtime Take 1 capsule by mouth once daily at bedtime 08/16/19 22 022 Inactive Lyrica 50 mg capsule RxNorm: 383540 Take 1 Capsule(s) Oral QAM every morning Take 1 capsule by mouth once daily 08/16/19 22 022 Inactive Levemir FlexTouch U-100 Insulin 100 unit/mL (3 mL) subcutaneous pen RxNorm: 797727 Inject 86 Unit(s) Subcutaneous BID 08/05/19 22 022 Inactive d/c 83units BID Lyrica 100 mg capsule RxNorm: 262628 Take 1 Capsule(s) Oral QHS every night at bedtime Take 1 capsule by mouth once daily at bedtime 07/14/19 22 022 Inactive Lyrica 50 mg capsule RxNorm: 477011 Take 1 Capsule(s) Oral QAM every morning Take 1 capsule by mouth once daily 07/14/19 22 022 Inactive Levemir FlexTouch U-100 Insulin 100 unit/mL (3 mL) subcutaneous pen RxNorm: 054918 Inject 83 Unit(s) Subcutaneous BID 07/08/19 22 [...] 30 mg tablet,extended release 24 hr RxNorm: 733917 Take 1 Tablet(s) Oral QD 05/05/20 No Stop Date Active hydralazine 50 mg tablet RxNorm: 001685 Take 1 Tablet(s) Oral QID 05/05/20 Inactive venlafaxine ER 225 mg tablet,extended release 24 hr RxNorm: 680704 Take 1 Tablet(s) Oral QD 05/05/20 Inactive venlafaxine ER 225 mg tablet,extended release 24 hr RxNorm: 840665 Take 1 Tablet(s) Oral QD 05/05/20 Inactive hydralazine 50 mg tablet RxNorm: 246922 Take 1 Tablet(s) Oral QID 05/05/20 Inactive aspirin 81 mg tablet,delayed release RxNorm: 020257 Take 1 Tablet(s) Oral QD 03/31/20 Inactive Zetia 10 mg tablet RxNorm: 731597 Take 1 Tablet(s) Oral QD 03/31/20 Inactive Vitamin D2 1,250 mcg (50,000 unit) capsule RxNorm: 1166686 Take 1 Capsule(s) Oral QW once a week x 12 weeks 03/31/20 Inactive Vitamin D2 1,250 mcg (50,000 unit) capsule RxNorm: 9060569 Take 1 Capsule(s) Oral QW once a week 03/31/20 Inactive Zetia 10 mg tablet RxNorm: 258388 Take 1 Tablet(s) Oral QD 03/31/20 Inactive hydralazine 25 mg tablet RxNorm: 644135 Take 1 Tablet(s) Oral QID 03/31/20 Inactive hydralazine 25 mg tablet RxNorm: 390316 Take 1 Tablet(s) Oral QID 03/31/20 021 Inactive hydralazine 10 mg tablet RxNorm: 713559 Take 1 Tablet(s) Oral QID 03/03/20 021 Inactive cephalexin 500 mg tablet RxNorm: 314924 Take 1 Tablet(s) Oral QID 02/27/20 021 Inactive cephalexin 500 mg tablet RxNorm: 196353 Take 1 Tablet(s) Oral QID 02/27/20 021 Inactive lisinopril 40 mg tablet RxNorm: 214032 Take 1 Tablet(s) Oral QD 02/11/20 023 Inactive Eliquis 5 mg tablet RxNorm: 3546200 Take 1 Tablet(s) Oral BID 01/05/20 022 Inactive Eliquis 5 mg tablet RxNorm: 6267324 Take 2 Tablet(s) Oral QD 01/01/20 21 021 Inactive Lyrica 50 mg capsule RxNorm: 004619 Take 1 Capsule(s) Oral QAM every morning 12/24/19 021 Inactive Lyrica 100 mg capsule RxNorm: 181997 Take 1 Capsule(s) Oral QHS every night at bedtime 12/24/19 021 Inactive clotrimazole 1 % topical cream RxNorm: 361030 Apply to right foot and toes Topical BID 12/04/19 21 023 Inactive metoprolol succinate ER 200 mg tablet,extended release 24 hr RxNorm: 709878 Take 1 Tablet(s) Oral QD 12/04/19 023 Inactive ciprofloxacin 500 mg tablet RxNorm: 221706 Take 1 Tablet(s) Oral QD 11/30/19 21 021 Inactive DX ofloxacin otic drops Accu-Chek Guide test strips RxNorm: USE 1 TO CHECK GLUCOSE 4 TIMES DAILY AND NEEDED 11/15/19 21 023 Inactive Blood Glucose Test strips RxNorm: Use 1 Test Strip QID at PRN 11/05/19 21 023 Inactive E11.42 lisinopril 30 mg tablet RxNorm: 141506 Take 1 Tablet(s) Oral QD 10/30/19 Inactive lisinopril 20 mg tablet RxNorm: 776355 Take 1 Tablet(s) Oral QD 10/23/19 21 021 Inactive lisinopril 20 mg tablet RxNorm: 861692 Take 1 Tablet(s) Oral QD 10/23/19 21 021 Inactive lisinopril 10 mg tablet RxNorm: 676397 Take 1 Tablet(s) Oral QD 10/02/19 021 Inactive icosapent ethyl 1 gram capsule RxNorm: 2789417 Take 2 Capsule(s) (2 gm) Oral BID with meals 09/12/19 022 Inactive Okay to dispense one 2gm tab if you have that available. icosapent ethyl 1 gram capsule RxNorm: 8231313 Take 2 Capsule(s) Oral BID 09/12/19 021 Inactive Okay to dispense one 2gm tab if you have that available. amlodipine 10 mg tablet RxNorm: 336581 Take 1 Tablet(s) Oral QD 09/04/19 022 Inactive aspirin 81 mg tablet,delayed release RxNorm: 843613 Take 1 Tablet(s) Oral QD 09/04/19 021 Inactive Levemir FlexTouch U-100 Insulin 100 unit/mL (3 mL) subcutaneous pen RxNorm: 647641 Inject 150 Unit(s) Subcutaneous BID 09/04/19 022 Inactive venlafaxine ER 150 mg tablet,extended release 24 hr RxNorm: 530596 Take 1 Tablet(s) Oral QD 09/04/19 21 021 Inactive clotrimazole-betame thasone 1 %-0.05 % topical cream RxNorm: 292823 Apply to rash on red area on left abdomen/chest Topical BID 08/10/19 Inactive amlodipine 5 mg tablet RxNorm: 156992 Take 1 Tablet(s) Oral QD 07/31/19 21 021 Inactive cephalexin 500 mg tablet RxNorm: 935313 Take 1 Tablet(s) Oral BID BID - Twice Daily 07/31/19 21 021 Inactive Start 08/01/20 pantoprazole 40 mg tablet,delayed release RxNorm: 374823 Take 1 Tablet(s) Oral QAM every morning 07/08/19 Inactive senna 8.6 mg tablet RxNorm: 370959 Take 1 Tablet(s) Oral QD 07/08/19 Inactive pravastatin 80 mg tablet RxNorm: 492411 Take 1 Tablet(s) Oral QHS every night at bedtime 07/08/19 Inactive carbamazepine 200 mg tablet RxNorm: 201619 Take 1 Tablet(s) Oral BID 07/08/19 Inactive clopidogrel 75 mg tablet RxNorm: 534665 Take 1 Tablet(s) Oral QD 07/08/19 Inactive Blood Glucose Test strips RxNorm: Use 1 Test Strip QID at PRN 07/08/19 Inactive E11.42 Novolog Flexpen U-100 Insulin aspart 100 unit/mL (3 mL) subcutaneous RxNorm: 4041741 Administer per sliding scale Milliliter(s) Subcutaneous TID 151-200: 10 u; 201-250: 20 u; 251-300: 30 u; 301-350: 40 u; 351-400: 50 u. 07/08/19 Inactive lisinopril 5 mg tablet RxNorm: 248965 Take 1 Tablet(s) Oral QD 07/08/19 Inactive Novolog Flexpen U-100 Insulin aspart 100 unit/mL (3 mL) subcutaneous RxNorm: 6599209 Inject 85 Unit(s) Subcutaneous TID 07/08/19 Inactive clotrimazole 1 % topical cream RxNorm: 342018 Apply to bilateral groin areas Topical BID 07/08/19 Inactive metoprolol succinate ER 200 mg tablet,extended release 24 hr RxNorm: 567187 Take 1 Tablet(s) Oral QD 07/08/19 Inactive Vitamin D3 25 mcg (1,000 unit) tablet RxNorm: 490579 Take 1 Tablet(s) Oral QD 02/22/20 21 04/19/2 021 Inactive isosorbide dinitrate 30 mg tablet RxNorm: 212550 Take 1 Tablet(s) Oral QD 07/08/19 21 021 Inactive Levemir FlexTouch U-100 Insulin 100 unit/mL (3 mL) subcutaneous pen RxNorm: 384316 Inject 140 Unit(s) Subcutaneous BID 07/08/19 21 021 Inactive torsemide 20 mg tablet RxNorm: 109265 Take 1 Tablet(s) Oral QD 07/08/19 21 023 Inactive venlafaxine 75 mg tablet RxNorm: 196888 Take 1 Tablet(s) Oral QD 07/08/19 021 Inactive acetaminophen 500 mg tablet RxNorm: 219535 Take 1 Tablet(s) Oral TID as needed for headache 06/18/19 021 Inactive acetaminophen 500 mg tablet RxNorm: 491799 Take 1 Tablet(s) Oral TID as needed for headache 06/18/19 021 Inactive Lyrica 100 mg capsule RxNorm: 292208 Take 1 Capsule(s) Oral QHS every night at bedtime 06/11/19 021 Inactive Lyrica 50 mg capsule RxNorm: 195742 Take 1 Capsule(s) Oral QAM every morning 06/10/19 21 021 Inactive hydrocortisone 2.5 % topical cream RxNorm: 888092 Apply to bilateral groin creases Topical BID 05/15/20 20 021 Inactive clotrimazole 1 % topical cream RxNorm: 187502 Apply to bilateral groin areas Topical BID 05/15/20 20 021 Inactive Lyrica 50 mg capsule RxNorm: 339313 Take 1 Capsule(s) Oral QAM every morning 05/14/20 20 020 Inactive Lyrica 100 mg capsule RxNorm: 687115 Take 1 Capsule(s) Oral QHS every night [...] Inactive Nystop 100,000 unit/gram topical powder RxNorm: 403257 Apply to abd folds, under breasts and L side of groin Topical BID x 14 days, then BID PRN 04/08/20 20 Inactive dx: yeast dermatitis Lyrica 100 mg capsule RxNorm: 525676 Take 1 Capsule(s) Oral QHS every night at bedtime 03/13/20 20 Inactive Lyrica 50 mg capsule RxNorm: 099857 Take 1 Capsule(s) Oral QAM every morning 03/13/20 20 Inactive ketoconazole 2 % shampoo RxNorm: 967568 Apply Topical two times a week with showers 03/11/20 20 Inactive cholecalciferol (vitamin D3) 50 mcg (2,000 unit) tablet RxNorm: 944756 Take 1 Tablet(s) Oral QD 03/11/20 20 021 Inactive Zetia 10 mg tablet RxNorm: 543546 Take 1 Tablet(s) Oral QD 03/07/20 20 021 Inactive Zetia 10 mg tablet RxNorm: 493464 Take 1 Tablet(s) Oral QD 03/07/20 20 Inactive Lyrica 50 mg capsule RxNorm: 393571 Take 1 Capsule(s) Oral QAM every morning 02/15/20 20 Inactive Lyrica 100 mg capsule RxNorm: 184892 Take 1 Capsule(s) Oral QHS every night at bedtime 02/15/20 20 Inactive Lyrica 100 mg capsule RxNorm: 807752 Take 1 Capsule(s) Oral QHS every night at bedtime 02/15/20 20 Inactive Lyrica 50 mg capsule RxNorm: 745751 Take 1 Capsule(s) Oral QAM every morning 02/15/20 20 020 Inactive venlafaxine ER 75 mg capsule,extended release 24 hr RxNorm: 234190 Take 3 Capsule(s) Oral QD 06/12/19 22 Active polyethylene glycol 3350 17 gram/dose oral powder RxNorm: 937198 Take 17=1 capful Gram(s) Oral BID as needed mix with 4-8oz of liquid 06/12/19 22 Active metoprolol succinate ER 200 mg tablet,extended release 24 hr RxNorm: 690791 Take 1 Tablet(s) Oral QD 08/12/19 23 Active loperamide 2 mg capsule RxNorm: 020259 Take 1 Capsule(s) Oral QID as needed 06/12/19 22 Active hydralazine 50 mg tablet RxNorm: 757607 Take 1 Tablet(s) Oral QID 08/12/19 23 Active icosapent ethyl 1 gram capsule RxNorm: 6652229 Take 2 Capsule(s) (2 gm) Oral BID with meals 10/07/19 23 023 Inactive Okay to dispense one 2gm tab if you have that available. Levemir FlexTouch U-100 Insulin 100 unit/mL (3 mL) subcutaneous pen RxNorm: 499703 Inject 80 Unit(s) Subcutaneous BID 07/14/19 23 023 Inactive Novolog Flexpen U-100 Insulin aspart 100 unit/mL (3 mL) subcutaneous RxNorm: 2865963 Insert 30 Unit(s) Subcutaneous TID with meals [...] Completed 12/08/2022 Appointment: Tapan Shirley WPtel: [address] [facility] 10/26/2022 Referral: [facility] [place] WPtel: [address], [address] [id number] Referral Records Received 09/21/2022 Appointment: Tapan Shirley WPtel: [address] [facility] [address] [id number] F/U 08/11/2022 Appointment: Tapan Shirley WPtel: [address] [place] F/U 07/14/2022 Appointment: Tapan Shirley WPtel: [address] F/U 02/10/2022 Referral: [facility] WPtel: [address] [id number] [place] Referral Completed 05/28/2021 Referral: General Cardiology Referral Complet ed 01/03/2021 Referral: General Psychologist Referral Close d Instructions Comment Date Leonid is a?? [facility]. Initial [facility] visit 01/2020. PMHx including DMII, CAD w/ 5 stents, Depression, Seizure Disorder and CKD stage 3. He moved into [facility] in 12/2019 but after a hospitalization 05/2021 he moved to the [facility] to have closer nursing attention.??Sister Jyotsna involved in his care cell# [phone]??Guardian: Don (tapan met in person 09/01/21), now has Lexii (same group as don)Lab Schedule: * 10/06/2022
[2022-12-13 12:13] LABS: Slide Review Reflex No
[2022-12-13 12:22] LABS: Chloride* 97 mmol/L (96-114); Potassium* 3.3 mmol/L (3.6-5.1); Sodium* 138 mmol/L (135-149)
[2022-12-13 12:25] LABS: Blood Urea Nitrogen* 27 mg/dL (7-30); Carbon Dioxide* 34 mmol/L (20-32); Creatinine* 1.3 mg/dL (0.5-1.5); Est. Creatinine Clearance* 52.49; Estimated Glomerular Filt Rate 62 ml/min; Glucose* 343 mg/dL (60-115); Lipase* 85 U/L (23-300)
[2022-12-13 12:26] LABS: Calcium* 8.7 mg/dL (8.4-10.6)
[2022-12-13 12:28] LABS: C Reactive Protein* 2.3 mg/dL (0.5-1.0); D Dimer Quantitative* 0.68 ug/ml (0.00-0.50)
[2022-12-13 12:42] LABS: PCR FLU A Negative PCR FLU A (Negative); PCR FLU B Negative PCR FLU B (Negative); PCR RSV Negative PCR RSV (Negative)
--- NOTE | 2022-12-13 12:47 | CRLHL7_ITS ---
For Patients: As a result of the Century Cures Act, medical imaging exams and procedure reports are released immediately into your electronic medical record. You may view this report before your referring provider. If you have questions, please contact your health care provider. INDICATION: Chest pain, abdominal pain and elevated D-dimer. COMPARISON: Chest CT dated 07/24/[address] of the abdomen dated 03/27/2022. TECHNIQUE: CTA of the chest, and CT of abdomen and pelvis with IV contrast, 150 cc of Isovue-[id number] administered. At the request of the ordering physician, 3-D reconstructed images were created on an independent workstation for enhanced visualization of anatomy and pathology. FINDINGS: The main pulmonary artery opacification measures 148 Hounsfield units, therefore inadequate for evaluation for a PE. No obvious saddle PE. Severe coronary artery calcification and/or stent in the LAD. No pericardial effusion. No pleural effusion. Large body habitus. Imaging obtained in expiration, with bowing of the posterior membranes, which limits evaluation of the lung parenchyma. No focal airspace opacity to suggest a large pneumonia. No acute abnormality in the neck base. No suspicious adenopathy. Diffuse hepatic steatosis. Hepatomegaly. Mild nodularity of the liver contour. Patent portal veins. Rim calcification of the splenic artery likely related to diabetes. Cholecystectomy change. Mild splenomegaly by measurements measuring 14.5 cm. Prominent posterior right renal cyst measuring 8.6 cm. No hydronephrosis. Symmetric enhancement of the kidneys. Patent mesenteric and splenic veins. No bowel obstruction. No suspicious urinary bladder abnormality. Fat containing umbilical hernia. No abdominal aortic aneurysm. No suspicious pancreatic abnormality. Adrenal glands appear unremarkable. IMPRESSION: 1. Inadequate opacification of the pulmonary artery. If repeated, the body habitus will still be limiting, however the contrast bolus was predominantly located in the central right upper extremity veins, the SVC and right heart, thus obtained too early. 2. Coronary artery calcification and stent. 3. Diffuse hepatic steatosis and hepatomegaly, and mild splenomegaly. Please note that all CT scans at this facility use dose modulation, iterative reconstruction, and/or weight-based dosing when appropriate to reduce radiation dose to as low as reasonably achievable. Dictated by Jon Shabazz MD @ 12/13/2022 3:22:37 PM (Electronically Signed)
[2022-12-13 13:39] LABS: SARS PCR* Negative SARS-CoV-2 (Negative)
[2022-12-13 14:02] LABS: Troponin, Point-of-Care* 0.01 ng/ml (0.01-0.04)
--- NOTE | 2022-12-13 16:33 | ED.NURSE ---
caro at [facility] called and report was given.
== END 2022-12-13 16:10 | disposition home or self-care (01) ==
PROVIDERS: Emergency Provider Family Medicine
DX: R07.9 Chest pain, unspecified (principal); Z86.79 Personal history of other diseases of the circulatory system
CPT/HCPCS: 36415; 71260; 74177; 80048; 83690; 84484; 85025; 85379; 86140; 87631; 93005; 96374; 99284; 99285; J2270; Q9967

== ENCOUNTER 2022-12-13 16:02 | Outpatient (CLI) | payer MEDICARE, MEDICAID, SELFPAY | END 2022-12-13 16:03 | disposition home or self-care (01) | LOC: AMB 12-16 12:21 | PROVIDERS: Visit Provider Emergency Medicine Emergency Medical Services | DX: R07.89 Other chest pain (principal) | CPT/HCPCS: A0425; A0428 ==

== ENCOUNTER 2022-12-16 09:18 | Outpatient (CLI) | payer MEDICARE, MEDICAID, SELFPAY ==
--- OUTSIDE RECORDS SUMMARY | 2022-12-19 20:16 | XMS_ITS | CCD ---
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 Name Role Phone Tapan Shirley PA-C Primary Care Provider Unavailabl e Tapan Shirley PA-C Chronic Care Management Unavaila ble Summary Purpose DataExchange Insurance Providers Payer name Policy type / Coverage type Covered green party ID Effective Begin Date Effective End Date [place] [id number] [place] [id number] Unknown Unknown Family history Sister Brittany Suggs [...] Unknown Correction 09/03/[address]: 7853420 Non-Smoker / No History of Smoking 09/02/[address]: 150223775 No Alcohol Consum ption 09/02/2020 Allergies, Adverse Reactions, Alerts Substance Reaction Codes Entered Date Inactivated Date Status LISINOPRIL RxNorm: 46826 02/12/2020 No Inactive Da te Active Metformin HCl Unknown 02/12/2020 No Inactive Cristiano e Active Problems Condition Codes Effective Dates Condition St atus Coronary artery disease invo lving [place] coronary artery of [place] heart, angina presence unspecified ICD-10: I25.10 ICD-9: 414.01 12/08/2022 Active Hypertensive heart disease w ithout heart failure ICD-10: I11.9 ICD-9: 402.90 12/08/2022 Active Hypokalemia ICD-10: E87.6 ICD-9: 276.8 12/08/2022 Active Tinea pedis of both feet ICD-10: B35.3 ICD-9: 110.4 12/08/2022 Active Hyperlipidemia associated wi th type 2 diabetes mellitus ICD-10: E11.69 ICD-9: 250.80 11/10/2022 Active Onychogryposis ICD-10: L60.2 ICD-9: 703.8 [...] ICD-10: S98. 131A ICD-9: 895.0 08/11/2022 Active Pre-op evaluation ICD-10: Z01.818 ICD-9: [...] lesion ICD-10: N50.9 ICD-9: 608.9 12/31/2020 Resolved Anemia due to stage 3b [...] Fill Instructions acetaminophen 500 mg tablet RxNorm: 693343 1 TABLET ORALLY 3 TIMES DAILY (MAX APAP:4GM/24HR) 12/15/19 23 024 Active potassium chloride ER 20 mEq tablet,extended release RxNorm: 524030 Take 1 Tablet(s) Oral BID 12/09/19 23 023 Active d/c 20mEq once daily (sent from hospital) clotrimazole 1 % topical cream RxNorm: 778624 apply 1g topically to top of feet and in between toes BID 12/09/19 23 023 Active nystatin 100,000 unit/gram topical powder RxNorm: 973526 APPLY TO AFFECTED AREAS TOPICALLY 2 TIMES DAILY 11/21/19 23 024 Active Nystop 100,000 unit/gram topical powder RxNorm: 498118 Apply to abd folds, under breasts and L side of groin Topical BID x 14 days, then BID PRN 11/20/19 023 Inactive dx: yeast dermatitis [place] Ultra Strength 4 %-30 %-10 % topical cream RxNorm: 321937 Apply 1 Gram(s) Topical QID PRN to feet and legs for neuropathic pain 11/11/19 024 Active hydrocortisone 2.5 % topical cream RxNorm: 189038 Apply 1/2 Gram(s) Topical BID as needed 11/10/19 No Stop Date Active clotrimazole 1 % topical cream RxNorm: 014062 Apply 1/2 Gram(s) Topical BID Apply to affected areas of groin, periarea, and abdominal topically 2 times daily 11/10/19 023 Inactive Levemir FlexPen 100 unit/mL (3 mL) solution subcutaneous insulin pen RxNorm: 885292 Inject 30 Unit(s) Subcutaneous BID 10/07/19 024 Active Humulin R U-500 (Concentrated) Insulin 500 unit/mL subcutaneous soln RxNorm: 515440 Inject 100 Unit(s) Subcutaneous TID 10/07/19 024 Active Ozempic 0.25 mg or 0.5 mg (2 mg/3 mL) subcutaneous pen injector RxNorm: 2552508 Inject 1/2 Milligram(s) Subcutaneous QW once a week 10/07/19 024 Active aripiprazole 15 mg tablet RxNorm: 984057 1/2 TAB (7.5MG) ORALLY DAILY (DX:MAJOR DEPRESSIVE DISORDER) 09/23/19 023 Active Accu-Chek Guide test strips RxNorm: Use 1 Test Strip QID 09/15/19 23 024 Active ok to substitute with any covered alternative test strip Lancets,Thin 28 gauge RxNorm: Use 1 as directed QID 09/15/19 23 024 Active torsemide 20 mg tablet RxNorm: 492189 Take 1 Tablet(s) Oral BID 09/09/19 23 024 Active d/c once daily dosing carvedilol 25 mg tablet RxNorm: 912331 Take 1 Tablet(s) Oral QD 08/25/19 23 024 Active pregabalin 150 mg capsule RxNorm: 972222 1 Capsule(s) Oral HS at bed time 08/18/19 23 023 Active pregabalin 100 mg capsule RxNorm: 255656 1 Capsule(s) Oral QAM every morning 08/18/19 23 023 Active carvedilol 25 mg tablet RxNorm: 380309 1 Tablet(s) Oral QD 07/28/19 23 023 Inactive lisinopril 20 mg tablet RxNorm: 047525 Give 1 Tablet(s) Oral QD 07/28/19 23 023 Inactive Lyrica 150 mg capsule RxNorm: 813709 Take 1 Capsule(s) Oral QHS every night at bedtime 07/19/19 23 023 Inactive d/c 100mg dose Diflucan 150 mg tablet RxNorm: 870212 Take 1 Tablet(s) Oral QD repeat on day 3 and 6 07/19/19 23 023 Inactive pregabalin 100 mg capsule RxNorm: 323102 Take 1 Capsule(s) Oral QAM every morning 07/19/19 23 023 Inactive gatifloxacin 0.5 % eye drops RxNorm: 797387 Instill 1 Drop(s) as directed TID Instill 1 drop in to affected eye(s) starting 1 day prior to surgery and continue until gone (do not exceed 4 weeks). 07/13/19 23 023 Inactive carvedilol 25 mg tablet RxNorm: 017750 2 Tablet(s) Oral BID 07/13/19 23 023 Inactive Humulin R Regular U-100 Insulin 100 unit/mL injection solution RxNorm: 836656 85 Unit(s) Injection TID 07/13/19 23 023 Inactive ketorolac 0.5 % eye drops RxNorm: 376526 Instill 1 Drop(s) as directed QID Instill 1 drop into affected eye(s) 4 times daily starting 1 day prior to surgery and continue until gone (do not exceed 4 weeks). 07/13/19 23 023 Inactive Diflucan 150 mg tablet RxNorm: 196632 Take 1 Tablet(s) Oral QD repeat on day 3 and 6 06/30/19 23 023 Inactive Accu-Chek Guide test strips RxNorm: Use 1 Test Strip QID Use 1 test strip to monitor blood glucose 4 times daily and as needed. Dx:E11.42. 06/23/19 23 023 Inactive ok to substitute with any covered alternative test strip dextromethorphan-gu aifenesin 10 mg-100 mg/5 mL oral liquid RxNorm: 205279 Take 10 Milliliter(s) Oral every 4 hours as needed for cough 06/19/19 023 Inactive dextromethorphan-gu aifenesin 10 mg-100 mg/5 mL oral liquid RxNorm: 338546 Take 10 Milliliter(s) Oral every 4 hours as needed for cough 06/19/19 23 023 Inactive Lyrica 150 mg capsule RxNorm: 688711 Take 1 Capsule(s) Oral QHS every night at bedtime 06/18/19 23 023 Inactive d/c 100mg dose aripiprazole 15 mg tablet RxNorm: 864705 1/2 TAB (7.5MG) ORALLY DAILY (DX:MAJOR DEPRESSIVE DISORDER) 06/05/19 23 023 Inactive pregabalin 100 mg capsule RxNorm: 469829 1 Capsule(s) Oral QAM every morning 06/02/19 23 023 Inactive Banophen 50 mg capsule RxNorm: 4771836 Take 1 Capsule(s) Oral Q6H every 6 hours as needed 05/19/19 23 No Stop Date Active Novolog Flexpen U-100 Insulin aspart 100 unit/mL (3 mL) subcutaneous RxNorm: 8831507 Inject 10 Unit(s) Subcutaneous QHS every night at bedtime with nighttime snack 04/08/20 22 022 Inactive Novolog Flexpen U-100 Insulin aspart 100 unit/mL (3 mL) subcutaneous RxNorm: 3715071 Inject 42 Unit(s) Subcutaneous TID in addition to sliding scale 04/08/20 022 Inactive d/c 36u albuterol sulfate HFA 90 mcg/actuation aerosol inhaler RxNorm: 0366479 Take 2 Puff(s) Inhalation Q4H every four hours as needed as needed for SOB, cough, or wheezing 04/07/20 030 Active Banophen 50 mg capsule RxNorm: 3847003 Take 1 Capsule(s) Oral Q6H every 6 hours as needed 04/06/20 023 Inactive diphenhydramine 50 mg tablet RxNorm: 9314551 Take 1 Tablet(s) Oral Q6H every 6 hours as needed 04/06/20 022 Inactive diphenhydramine 50 mg tablet RxNorm: 8705506 1 Tablet(s) Oral Q6H every 6 hours as needed 04/06/20 022 Inactive Abilify 15 mg tablet RxNorm: 208053 1/2 Tablet(s) Oral QD 03/10/20 023 Inactive Shingrix (PF) 50 mcg/0.5 mL intramuscular suspension, kit RxNorm: 6466464 Administer 1/2 Milliliter(s) Intramuscular QD one time shingrix step 2 ( step 1 given 11/04/21) WITH needle - Nursing please administer upon arrival and once administered post a bridge message with date of administration, neonatal intensive care unit nurse, expiration date, and lot# so we can update [facility] 02/18/20 22 022 Inactive dispense with needle Shingrix (PF) 50 mcg/0.5 mL intramuscular suspension, kit RxNorm: 0080245 Administer 1/2 Milliliter(s) Intramuscular QD one time shingrix step 2 ( step 1 given 11/04/21) WITH needle - Nursing please administer upon arrival and once administered post a bridge message with date of administration, neonatal intensive care unit nurse, expiration date, and lot# so we can update [facility] 02/18/20 22 022 Inactive dispense with needle polyethylene glycol 3350 17 gram/dose oral powder RxNorm: 845348 Take 17=1 capful Gram(s) Oral QD mix with 4-8oz of liquid 01/08/20 22 023 Active take this in addition to BID prn order Lyrica 100 mg capsule RxNorm: 785685 Take 1 Capsule(s) Oral QAM every morning 01/08/20 22 022 Inactive d/c 50mg dose acetaminophen 500 mg tablet RxNorm: 511455 Take 1 Tablet(s) Oral TID 01/08/20 22 022 Inactive d/c PRN order Lyrica 150 mg capsule RxNorm: 629889 Take 1 Capsule(s) Oral QHS every night at bedtime 01/08/20 22 023 Inactive d/c 100mg dose Abilify 5 mg tablet RxNorm: 201301 Take 1 Tablet(s) Oral QD take 1 tab po QD #30 refill 5 dx: MDD 12/12/19 22 022 Inactive Abilify 5 mg tablet RxNorm: 635420 Take 1 Tablet(s) Oral QD take 1 tab po QD #30 refill 5 dx: MDD 12/12/19 22 022 Inactive Novolog Flexpen U-100 Insulin aspart 100 unit/mL (3 mL) subcutaneous RxNorm: 6918622 Inject 42 Unit(s) Subcutaneous TID in addition to sliding scale 12/10/19 22 022 Inactive d/c 36u chlorthalidone 25 mg tablet RxNorm: 150372 Take 1 Tablet(s) Oral QAM every morning 12/10/19 22 023 Inactive pregabalin 50 mg capsule RxNorm: 656284 Take 1 Capsule(s) Oral QAM every morning 11/12/19 22 022 Inactive tetanus-diphtheria toxoids-Td 2 Lf unit-2 Lf unit/0.5 mL IM suspension RxNorm: 139 Take 0.5 Miscellaneous Intramuscular 11/12/19 22 022 Inactive need tdap - nursing to administer upon arrival pregabalin 50 mg capsule RxNorm: 563150 Take 1 Capsule(s) Oral QAM every morning 10/16/19 22 022 Inactive pregabalin 50 mg capsule RxNorm: 863299 Take 1 Capsule(s) Oral QAM every morning 10/16/19 22 022 Inactive pregabalin 50 mg capsule RxNorm: 155856 1 Capsule(s) Oral QAM every morning 10/15/19 22 Inactive Shingrix (PF) 50 mcg/0.5 mL intramuscular suspension, kit RxNorm: 0196031 Administer 1/2 Milliliter(s) Intramuscular one time Nursing please administer upon arrival and once administered post a bridge message with date of administration, neonatal intensive care unit nurse, expiration date, and lot# so we can update [facility]. 10/09/19 22 022 Inactive shingrix step 1 Shingrix (PF) 50 mcg/0.5 mL intramuscular suspension, kit RxNorm: 0525153 Administer 1/2 Milliliter(s) Intramuscular one time Nursing please administer upon arrival and once administered post a bridge message with date of administration, neonatal intensive care unit nurse, expiration date, and lot# so we can update [facility]. 10/09/19 22 Inactive shingrix step 1 cholecalciferol (vitamin D3) 1,250 mcg (50,000 unit) capsule RxNorm: 150943 Take 1 Capsule(s) Oral QW once a [...] aspart 100 unit/mL (3 mL) subcutaneous RxNorm: 8256293 Inject 10 Unit(s) Subcutaneous QHS every night at bedtime with nighttime snack 10/08/19 22 Inactive Shingrix (PF) 50 mcg/0.5 mL intramuscular suspension, kit RxNorm: 9680430 ADMINISTER 2-DOSE SERIES PER CDC GUIDELINES 10/08/19 22 022 Active Shingrix (PF) 50 mcg/0.5 mL intramuscular suspension, kit RxNorm: 3323239 ADMINISTER 2-DOSE SERIES PER CDC GUIDELINES 10/08/19 22 Inactive Novolog Flexpen U-100 Insulin aspart 100 unit/mL (3 mL) subcutaneous RxNorm: 7613706 Inject 36 Unit(s) Subcutaneous TID in addition to sliding scale 10/08/19 22 Inactive Novofine Autocover 30 gauge x 1/3 needle RxNorm: Use 1 Miscellaneous UD as directed Use 1 needle as directed to administer insulin 5 times a day Dx:E11.42. 10/03/19 22 Inactive ok to substitute with any covered alternative pen needle benzoyl peroxide 10 % topical cleanser RxNorm: 046988 Apply 1 Application Topical QD apply to face, wash rinse and dry once daily (may change to QOD if drying) 08/19/19 022 Inactive (%covered by insurance) #60ml refill 11 dx: acne benzoyl peroxide 10 % topical cleanser RxNorm: 051558 Apply 1 Application Topical QD apply to face, wash rinse and dry once daily (may change to QOD if drying) 08/19/19 022 Inactive (%covered by insurance) #60ml refill 11 dx: acne benzoyl peroxide 10 % topical cleanser RxNorm: 927861 Apply 1 Application Topical QD apply to face, wash rinse and dry once daily (may change to QOD if drying) 08/19/19 022 Inactive (%covered by insurance) #60ml refill 11 dx: acne Lyrica 50 mg capsule RxNorm: 637581 Take 1 Capsule(s) Oral QAM every morning Take 1 capsule by mouth once daily 08/19/19 22 022 Inactive benzoyl peroxide 10 % topical cleanser RxNorm: 867343 Apply 1 Application Topical QD apply to face, wash rinse and dry once daily (may change to QOD if drying) 08/19/19 22 022 Inactive (%covered by insurance) #60ml refill 11 dx: acne Lyrica 100 mg capsule RxNorm: 656174 Take 1 Capsule(s) Oral QHS every night at bedtime Take 1 capsule by mouth once daily at bedtime 08/19/19 022 Inactive Lyrica 100 mg capsule RxNorm: 521667 Take 1 Capsule(s) Oral QHS every night at bedtime Take 1 capsule by mouth once daily at bedtime 08/16/19 22 022 Inactive Lyrica 50 mg capsule RxNorm: 444872 Take 1 Capsule(s) Oral QAM every morning Take 1 capsule by mouth once daily 08/16/19 22 022 Inactive Levemir FlexTouch U-100 Insulin 100 unit/mL (3 mL) subcutaneous pen RxNorm: 774428 Inject 86 Unit(s) Subcutaneous BID 08/05/19 22 022 Inactive d/c 83units BID Lyrica 100 mg capsule RxNorm: 618846 Take 1 Capsule(s) Oral QHS every night at bedtime Take 1 capsule by mouth once daily at bedtime 07/14/19 22 022 Inactive Lyrica 50 mg capsule RxNorm: 279625 Take 1 Capsule(s) Oral QAM every morning Take 1 capsule by mouth once daily 07/14/19 22 022 Inactive Levemir FlexTouch U-100 Insulin 100 unit/mL (3 mL) subcutaneous pen RxNorm: 137525 Inject 83 Unit(s) Subcutaneous BID 07/08/19 22 [...] 30 mg tablet,extended release 24 hr RxNorm: 118160 Take 1 Tablet(s) Oral QD 05/05/20 21 No Stop Date Active hydralazine 50 mg tablet RxNorm: 941807 Take 1 Tablet(s) Oral QID 05/05/20 21 022 Inactive venlafaxine ER 225 mg tablet,extended release 24 hr RxNorm: 962538 Take 1 Tablet(s) Oral QD 05/05/20 21 021 Inactive venlafaxine ER 225 mg tablet,extended release 24 hr RxNorm: 956033 Take 1 Tablet(s) Oral QD 05/05/20 21 022 Inactive hydralazine 50 mg tablet RxNorm: 729821 Take 1 Tablet(s) Oral QID 05/05/20 21 021 Inactive aspirin 81 mg tablet,delayed release RxNorm: 931096 Take 1 Tablet(s) Oral QD 03/31/20 21 022 Inactive Zetia 10 mg tablet RxNorm: 875051 Take 1 Tablet(s) Oral QD 03/31/20 21 022 Inactive Vitamin D2 1,250 mcg (50,000 unit) capsule RxNorm: 8573253 Take 1 Capsule(s) Oral QW once a week x 12 weeks 03/31/20 21 022 Inactive Vitamin D2 1,250 mcg (50,000 unit) capsule RxNorm: 3108213 Take 1 Capsule(s) Oral QW once a week 03/31/20 021 Inactive Zetia 10 mg tablet RxNorm: 182010 Take 1 Tablet(s) Oral QD 03/31/20 Inactive hydralazine 25 mg tablet RxNorm: 623763 Take 1 Tablet(s) Oral QID 03/31/20 021 Inactive hydralazine 25 mg tablet RxNorm: 991016 Take 1 Tablet(s) Oral QID 03/31/20 021 Inactive hydralazine 10 mg tablet RxNorm: 506151 Take 1 Tablet(s) Oral QID 03/03/20 021 Inactive cephalexin 500 mg tablet RxNorm: 987064 Take 1 Tablet(s) Oral QID 02/27/20 021 Inactive cephalexin 500 mg tablet RxNorm: 124299 Take 1 Tablet(s) Oral QID 02/27/20 021 Inactive lisinopril 40 mg tablet RxNorm: 477714 Take 1 Tablet(s) Oral QD 02/11/20 023 Inactive Eliquis 5 mg tablet RxNorm: 3250756 Take 1 Tablet(s) Oral BID 01/05/20 022 Inactive Eliquis 5 mg tablet RxNorm: 5688867 Take 2 Tablet(s) Oral QD 01/01/20 021 Inactive Lyrica 50 mg capsule RxNorm: 722281 Take 1 Capsule(s) Oral QAM every morning 12/24/19 021 Inactive Lyrica 100 mg capsule RxNorm: 781585 Take 1 Capsule(s) Oral QHS every night at bedtime 12/24/19 021 Inactive clotrimazole 1 % topical cream RxNorm: 399231 Apply to right foot and toes Topical BID 12/04/19 21 023 Inactive metoprolol succinate ER 200 mg tablet,extended release 24 hr RxNorm: 516997 Take 1 Tablet(s) Oral QD 12/04/19 21 023 Inactive ciprofloxacin 500 mg tablet RxNorm: 360989 Take 1 Tablet(s) Oral QD 11/30/19 021 Inactive DX ofloxacin otic drops Accu-Chek Guide test strips RxNorm: USE 1 TO CHECK GLUCOSE 4 TIMES DAILY AND NEEDED 11/15/19 21 023 Inactive Blood Glucose Test strips RxNorm: Use 1 Test Strip QID at PRN 11/05/19 21 023 Inactive E11.42 lisinopril 30 mg tablet RxNorm: 432087 Take 1 Tablet(s) Oral QD 10/30/19 021 Inactive lisinopril 20 mg tablet RxNorm: 953528 Take 1 Tablet(s) Oral QD 10/23/19 021 Inactive lisinopril 20 mg tablet RxNorm: 783451 Take 1 Tablet(s) Oral QD 10/23/19 21 021 Inactive lisinopril 10 mg tablet RxNorm: 977575 Take 1 Tablet(s) Oral QD 10/02/19 021 Inactive icosapent ethyl 1 gram capsule RxNorm: 6347988 Take 2 Capsule(s) (2 gm) Oral BID with meals 09/12/19 022 Inactive Okay to dispense one 2gm tab if you have that available. icosapent ethyl 1 gram capsule RxNorm: 2981607 Take 2 Capsule(s) Oral BID 09/12/19 021 Inactive Okay to dispense one 2gm tab if you have that available. amlodipine 10 mg tablet RxNorm: 996298 Take 1 Tablet(s) Oral QD 09/04/19 022 Inactive aspirin 81 mg tablet,delayed release RxNorm: 153859 Take 1 Tablet(s) Oral QD 09/04/19 21 021 Inactive Levemir FlexTouch U-100 Insulin 100 unit/mL (3 mL) subcutaneous pen RxNorm: 397753 Inject 150 Unit(s) Subcutaneous BID 09/04/19 21 022 Inactive venlafaxine ER 150 mg tablet,extended release 24 hr RxNorm: 346727 Take 1 Tablet(s) Oral QD 09/04/19 21 021 Inactive clotrimazole-betame thasone 1 %-0.05 % topical cream RxNorm: 185025 Apply to rash on red area on left abdomen/chest Topical BID 08/10/19 Inactive amlodipine 5 mg tablet RxNorm: 729198 Take 1 Tablet(s) Oral QD 07/31/19 Inactive cephalexin 500 mg tablet RxNorm: 605978 Take 1 Tablet(s) Oral BID BID - Twice Daily 07/31/19 Inactive Start 08/01/20 pantoprazole 40 mg tablet,delayed release RxNorm: 448999 Take 1 Tablet(s) Oral QAM every morning 07/08/19 Inactive senna 8.6 mg tablet RxNorm: 336270 Take 1 Tablet(s) Oral QD 07/08/19 Inactive pravastatin 80 mg tablet RxNorm: 426241 Take 1 Tablet(s) Oral QHS every night at bedtime 07/08/19 Inactive carbamazepine 200 mg tablet RxNorm: 943962 Take 1 Tablet(s) Oral BID 07/08/19 022 Inactive clopidogrel 75 mg tablet RxNorm: 975356 Take 1 Tablet(s) Oral QD 07/08/19 Inactive Blood Glucose Test strips RxNorm: Use 1 Test Strip QID at PRN 07/08/19 Inactive E11.42 Novolog Flexpen U-100 Insulin aspart 100 unit/mL (3 mL) subcutaneous RxNorm: 8726809 Administer per sliding scale Milliliter(s) Subcutaneous TID 151-200: 10 u; 201-250: 20 u; 251-300: 30 u; 301-350: 40 u; 351-400: 50 u. 07/08/19 022 Inactive lisinopril 5 mg tablet RxNorm: 454827 Take 1 Tablet(s) Oral QD 07/08/19 021 Inactive Novolog Flexpen U-100 Insulin aspart 100 unit/mL (3 mL) subcutaneous RxNorm: 8898869 Inject 85 Unit(s) Subcutaneous TID 07/08/19 022 Inactive clotrimazole 1 % topical cream RxNorm: 192458 Apply to bilateral groin areas Topical BID 07/08/19 21 022 Inactive metoprolol succinate ER 200 mg tablet,extended release 24 hr RxNorm: 833818 Take 1 Tablet(s) Oral QD 07/08/19 21 021 Inactive Vitamin D3 25 mcg (1,000 unit) tablet RxNorm: 031107 Take 1 Tablet(s) Oral QD 07/08/19 021 Inactive isosorbide dinitrate 30 mg tablet RxNorm: 277360 Take 1 Tablet(s) Oral QD 07/08/19 021 Inactive Levemir FlexTouch U-100 Insulin 100 unit/mL (3 mL) subcutaneous pen RxNorm: 115371 Inject 140 Unit(s) Subcutaneous BID 07/08/19 021 Inactive torsemide 20 mg tablet RxNorm: 385698 Take 1 Tablet(s) Oral QD 07/08/19 023 Inactive venlafaxine 75 mg tablet RxNorm: 911547 Take 1 Tablet(s) Oral QD 07/08/19 021 Inactive acetaminophen 500 mg tablet RxNorm: 923249 Take 1 Tablet(s) Oral TID as needed for headache 06/18/19 021 Inactive acetaminophen 500 mg tablet RxNorm: 504644 Take 1 Tablet(s) Oral TID as needed for headache 06/18/19 021 Inactive Lyrica 100 mg capsule RxNorm: 812919 Take 1 Capsule(s) Oral QHS every night at bedtime 06/11/19 021 Inactive Lyrica 50 mg capsule RxNorm: 237243 Take 1 Capsule(s) Oral QAM every morning 06/10/19 21 021 Inactive hydrocortisone 2.5 % topical cream RxNorm: 421234 Apply to bilateral groin creases Topical BID 05/15/20 20 021 Inactive clotrimazole 1 % topical cream RxNorm: 088810 Apply to bilateral groin areas Topical BID 05/15/20 20 021 Inactive Lyrica 50 mg capsule RxNorm: 422627 Take 1 Capsule(s) Oral QAM every morning 05/14/20 20 Inactive Lyrica 100 mg capsule RxNorm: 776759 Take 1 Capsule(s) Oral QHS every night [...] Inactive Nystop 100,000 unit/gram topical powder RxNorm: 751913 Apply to abd folds, under breasts and L side of groin Topical BID x 14 days, then BID PRN 04/08/20 20 Inactive dx: yeast dermatitis Lyrica 100 mg capsule RxNorm: 223662 Take 1 Capsule(s) Oral QHS every night at bedtime 03/13/20 20 Inactive Lyrica 50 mg capsule RxNorm: 532086 Take 1 Capsule(s) Oral QAM every morning 03/13/20 20 Inactive ketoconazole 2 % shampoo RxNorm: 183744 Apply Topical two times a week with showers 03/11/20 20 Inactive cholecalciferol (vitamin D3) 50 mcg (2,000 unit) tablet RxNorm: 720375 Take 1 Tablet(s) Oral QD 03/11/20 20 021 Inactive Zetia 10 mg tablet RxNorm: 124520 Take 1 Tablet(s) Oral QD 03/07/20 20 021 Inactive Zetia 10 mg tablet RxNorm: 345828 Take 1 Tablet(s) Oral QD 03/07/20 20 Inactive Lyrica 50 mg capsule RxNorm: 662058 Take 1 Capsule(s) Oral QAM every morning 02/15/20 20 Inactive Lyrica 100 mg capsule RxNorm: 155321 Take 1 Capsule(s) Oral QHS every night at bedtime 02/15/20 20 Inactive Lyrica 100 mg capsule RxNorm: 391331 Take 1 Capsule(s) Oral QHS every night at bedtime 02/15/20 20 Inactive Lyrica 50 mg capsule RxNorm: 479831 Take 1 Capsule(s) Oral QAM every morning 02/15/20 20 Inactive venlafaxine ER 75 mg capsule,extended release 24 hr RxNorm: 650388 Take 3 Capsule(s) Oral QD 06/12/19 22 Active polyethylene glycol 3350 17 gram/dose oral powder RxNorm: 190840 Take 17=1 capful Gram(s) Oral BID as needed mix with 4-8oz of liquid 06/12/19 22 Active metoprolol succinate ER 200 mg tablet,extended release 24 hr RxNorm: 185151 Take 1 Tablet(s) Oral QD 08/12/19 23 Active loperamide 2 mg capsule RxNorm: 949656 Take 1 Capsule(s) Oral QID as needed 06/12/19 22 Active hydralazine 50 mg tablet RxNorm: 478479 Take 1 Tablet(s) Oral QID 08/12/19 23 Active icosapent ethyl 1 gram capsule RxNorm: 2984686 Take 2 Capsule(s) (2 gm) Oral BID with meals 10/07/19 23 023 Inactive Okay to dispense one 2gm tab if you have that available. Levemir FlexTouch U-100 Insulin 100 unit/mL (3 mL) subcutaneous pen RxNorm: 849861 Inject 80 Unit(s) Subcutaneous BID 07/14/19 23 023 Inactive Novolog Flexpen U-100 Insulin aspart 100 unit/mL (3 mL) subcutaneous RxNorm: 6834138 Insert 30 Unit(s) Subcutaneous TID with meals 05 022 Inactive Medication Administered No Medication Administered [...] Codes Status Date Referral: [facility] WPtel: [address], [address] [id number] Referral Records Received 09/21/2022 Referral: [facility] WPtel: [address] [id number] [place] Referral Completed 05/28/2021 Referral: General Cardiology [...] select specialty hospital to have closer nursing attention.??Sister Jyotsna involved in his care cell# [phone]??Guardian: Don (tapan met in person 09/01/21), now has Lexii (same group as don)Lab Schedule: * 10/06/2022
== END 2022-12-16 09:19 | disposition home or self-care (01) ==
LOC: AMB 12-19 19:52
PROVIDERS: Visit Provider Family Medicine
DX: R07.89 Other chest pain (principal)
CPT/HCPCS: A0425; A0427

== ENCOUNTER 2023-01-21 23:05 | Outpatient (CLI) | payer MEDICARE, MEDICAID, SELFPAY | END 2023-01-21 23:06 | disposition home or self-care (01) | LOC: AMB 02-01 05:34 | PROVIDERS: Visit Provider Emergency Medicine | DX: R07.89 Other chest pain (principal) | CPT/HCPCS: A0425; A0427 ==

== ENCOUNTER 2023-01-21 23:39 | Emergency (ER) | payer MEDICARE, MEDICAID, SELFPAY ==
[2023-01-21 23:45] VITALS: BP 124/53; PULSE 76; RESP 22; TEMP 36.8; O2SAT 95; BMI 57.9
[2023-01-22] VITALS (11 sets, daily range): BP systolic 125–160; BP diastolic 51–82; PULSE 66–72; RESP 18–20; O2SAT 96–98
--- NOTE | 2023-01-22 00:17 | ED.GENADULT ---
HPI - General Adult General Chief complaint: Chest Pain Stated complaint: chest pain Time Seen by Provider: 01/22/23 00:05 Source: patient Mode of arrival: EMS History of Present Illness HPI narrative: 62-year-old poor historian who lives at a group home in [place] presents to the emergency department with a one-week history of chest pain in the anterior left chest that happens when he pulls himself up from his chair. Pain is not accompanied by shortness of breath. Last a few seconds to a few minutes at a time. It does sometimes happen with twisting and with walking though not reproducibly. He has not tried any interventions to help with his symptoms. He did call EMS due to the chest pain tonight. It is not currently present. He does have bilateral arm pain which is an ongoing issue. Specifically this is biceps area on his description and is worse with again pulling some himself up from a recumbent position. No fevers, no trauma or injury. Has not tried taking any medications specifically to help with this. His notable history of stents placed in 2019, he does not know where but records indicate [place]. I reviewed his notes from the past year, he comes in very frequently with this complaint. You was referred for a stress test after his last ED visit 6 weeks ago. He reports that he had this done but I do not have access to the records. He was told that it was normal. But it sounds like they also discussed possibly doing an angiogram. He does not have a follow-up with his supervisor statement clerks nor does he believe that he has a supervisor statement clerks. He continues to take his blood thinners as given with no complications per his report. I reviewed his medications and see that he is already on a long-acting nitrate. He gives no other pertinent history. Past medical history notable for coronary artery disease, morbid obesity, obstructive sleep apnea, insulin-dependent diabetes. He also has a history of thrombotic disease and is chronically anticoagulated on Eliquis. Remainder of history reviewed from previous notes, unchanged. Nonsmoker. ROS notable for multiple musculoskeletal concerns, chronic urinary incontinence which is not acute, the chest symptoms as described above, otherwise denies times 12 systems. Related Data Home Medications Medication Instructions Recorded Confirmed amlodipine 10 mg tablet 10 mg PO DAILY 03/07/22 07/24/22 apixaban 5 mg tablet (Eliquis) 5 mg PO BID 03/07/22 07/24/22 aripiprazole 15 mg tablet 7.5 mg PO DAILY 03/07/22 07/24/22 aspirin 81 mg tablet,delayed 81 mg PO DAILY 03/07/22 07/24/22 release carbamazepine 200 mg tablet 200 mg PO BID 03/07/22 07/24/22 chlorthalidone 25 mg tablet 25 mg PO DAILY 03/07/22 07/24/22 ezetimibe 10 mg tablet 10 mg PO DAILY 03/07/22 07/24/22 hydralazine 50 mg tablet 50 mg PO QID 03/07/22 07/24/22 isosorbide mononitrate 30 mg 30 mg PO DAILY 03/07/22 07/24/22 tablet,extended release 24 hr pantoprazole 40 mg tablet,delayed 40 mg PO DAILY 03/07/22 07/24/22 release polyethylene glycol 3350 17 17 g PO DAILY 03/07/22 07/25/22 gram/dose oral powder pravastatin 80 mg tablet 80 mg PO HS 03/07/22 07/24/22 pregabalin 100 mg capsule 100 mg PO QAM 03/07/22 07/24/22 pregabalin 150 mg capsule 150 mg PO HS 03/07/22 07/24/22 torsemide 20 mg tablet 20 mg PO DAILY 03/07/22 07/24/22 venlafaxine 75 mg capsule,extended 225 mg PO DAILY 03/07/22 07/24/22 release 24 hr acetaminophen 500 mg tablet 500 mg PO Q6H 06/13/22 07/24/22 albuterol sulfate 90 mcg/actuation 1 inh inhalation Q4H PRN 06/13/22 07/24/22 aerosol inhaler bronchospasm diphenhydramine HCl 50 mg capsule 50 mg PO Q6H PRN itching 06/13/22 07/24/22 (Banophen) icosapent ethyl 1 gram capsule 2 g PO BID 06/13/22 07/24/22 (Vascepa) insulin regular hum U-500 conc 500 85 unit subcut TID 06/13/22 07/24/22 unit/mL(3 mL) subcut pen (Humulin R U-500 (Conc) Insulin Kwikpen) ketoconazole 2 % shampoo 1 applic topical Q3D 06/13/22 07/24/22 loperamide 2 mg capsule 2 mg PO Q6H PRN loose stool 06/13/22 07/24/22 nystatin 100,000 unit/gram topical 1 applic topical BID PRN 06/13/22 07/24/22 powder sennosides 8.6 mg tablet (senna) 8.6 mg PO DAILY 06/13/22 07/24/22 clotrimazole 1 % topical cream 1 applic topical BID 07/25/22 07/25/22 ergocalciferol (vitamin D2) 1,250 50,000 unit PO WE@07/25/22 07/25/22 mcg (50,000 unit) capsule fluconazole 150 mg tablet 150 mg PO TUFR@07/25/22 07/25/22 gatifloxacin 0.5 % eye drops 1 drp ophthalmic (eye) QID 07/25/22 07/25/22 ketorolac 0.5 % eye drops 1 drp ophthalmic (eye) QID 07/25/22 07/25/22 prednisolone acetate 1 % eye 1 drp ophthalmic (eye) QID 07/25/22 07/25/22 drops,suspension Previous Rx's Medication Instructions Recorded amoxicillin 875 mg-potassium 1 tab PO BID 7 days #14 tabs 07/26/22 clavulanate 125 mg tablet carvedilol 25 mg tablet 25 mg PO Q12H 30 days #60 tabs 07/26/22 lisinopril 20 mg tablet 20 mg PO DAILY 30 days #60 tabs 07/26/22 cephalexin 500 mg capsule 500 mg PO TID 10 days #30 caps 09/14/22 hydrocortisone 2.5 % topical cream 1 applic topical BID PRN #30 grams 09/14/22 nystatin 100,000 unit/gram topical 1 applic topical BID #30 grams 09/14/22 powder potassium chloride 20 mEq oral 20 meq PO DAILY 3 days #3 ea 10/19/22 packet potassium chloride 20 mEq 20 meq PO DAILY #10 tabs 12/08/22 tablet,extended release Allergies Allergy/AdvReac Type Severity Reaction Status Date / Time lisinopril AdvReac Verified 12/13/22 18:33 metformin AdvReac Verified 12/13/22 18:33 [facility] PFS Medical History Insulin dependent diabetes mellitus Recurrent deep vein thrombosis (DVT) ?I82.409 - Acute embolism and thrombosis of unspecified deep veins of unspecified lower extremity (ICD-10) Hypertension ?I10 - Essential (primary) hypertension (ICD-10) Coronary artery disease ?I25.10 - Atherosclerotic heart disease of [place] coronary artery without angina pectoris (ICD-10) Hypertriglyceridemia ?E78.1 - Pure hyperglyceridemia (ICD-10) Epilepsy ?G40.909 - Epilepsy, unspecified, not intractable, without status epilepticus (ICD-10) TASHI on CPAP ?G47.33 - Obstructive sleep apnea (adult) (pediatric) (ICD-10) ?Z99.89 - Dependence on other enabling machines and devices (ICD-10) Tachypnea ?R06.82 - Tachypnea, not elsewhere classified (ICD-10) Fever ?R50.9 - Fever, unspecified (ICD-10) CKD (chronic kidney disease) ?N18.9 - Chronic kidney disease, unspecified (ICD-10) Gout ?M10.9 - Gout, unspecified (ICD-10) Major depressive disorder ?F32.9 - Major depressive disorder, single episode, unspecified (ICD-10) Type 2 diabetes mellitus ?E11.9 - Type 2 diabetes mellitus without complications (ICD-10) Obesity ?E66.9 - Obesity, unspecified (ICD-10) Surgical History History of cholecystectomy ?Z90.49 - Acquired absence of other specified parts of digestive tract (ICD-10) Social History Narrative: Lives in a correction in [place], [place]. Sisters Brittany Suggs ([phone]) and Blanka Mcduffie ([phone]) listed as contacts and medical decision makers. Paperwork from correction indicates Full Code status. Highest level of school completed/degree received: 12th grade, no diploma Smoking Status: Never smoker Do you use any of these nicotine containing products: None Second hand tobacco smoke exposure: No How often do you have a drink containing alcohol: never How often do you have six or more drinks on one occasion: Never AUDIT-C Alcohol total score: 0 Non-prescribed substance use: denies use Caffeine: No service: No Exam Const: Vital Signs, click to edit/add: Vital Signs - 24 hr 01/21/23 23:45 01/22/23 00:18 01/22/23 00:32 Temperature 98.3 F Pulse Rate 66 69 Pulse Rate [Pulse Oximeter] 76 Respiratory Rate 22 18 Blood Pressure 140/60 H 149/66 H Blood Pressure [Le ft Forearm] 124/53 L Pulse Oximetry 95 97 96 Oxygen Delivery Me thod Room Air 01/22/23 00:47 01/22/23 01:02 Temperature Pulse Rate 67 69 Pulse Rate [Pulse Oximeter] Respiratory Rate 20 Blood Pressure 141/56 H 145/67 H Blood Pressure [Le ft Forearm] Pulse Oximetry 96 97 Oxygen Delivery Me thod Documenting provider has reviewed patient's vital signs: yes Common normals: no apparent distress Other: Malodorous and morbidly obese. Poor historian. Cooperates well with exam HENMT: Common normals: normocephalic and head/scalp atraumatic Head and scalp: normocephalic and atraumatic Face and sinus: normal facial exam Eye: Common normals: conjunctivae normal General eye: normal appearance of both eyes Conjunctiva: conjunctiva(e) normal Neck & C-Spine: Common normals: full ROM and no lymphadenopathy Resp: Common normals: normal respiratory effort and no use of accessory muscles Effort & inspection: able to speak in complete sentences Other: Body habitus limits auscultation at the bases but no obvious respiratory distress or crackles. Cardio: Common normals: regular rate, regular rhythm, S1 normal heart sound, S2 normal heart sound and no murmurs Rate: regular rate Rhythm: regular rhythm Heart sounds: S1 normal and S2 normal GI: Common normals: Normal to inspection, nondistended, normoactive bowel sounds present Other: Morbid obesity limits the ability to palpate edges of organs. No obvious mass or tenderness Extremity: Common normals: normal capillary refill Other: Chronic dependent edema. Neuro: Speech: speech normal Motor exam: no movement abnormalities noted Psych: Attitude: calm Thought content: normal thought content Insight: limited Judgement: limited Skin: Common normals: no rashes or lesions noted General skin exam: no rashes or lesions noted Course Course ED Course: History of coronary artery disease and thromboembolism with multiple risk factors for acute coronary syndrome. At this time, his chest pain does sound as though it is more musculoskeletal since it happens with pulling his large body habitus up and is of limited duration. It is important to note that he does not perform much for physical exertion on a regular basis. He has already been given aspirin by EMS. He is already anticoagulated. Differential diagnosis including acute coronary syndrome, arrhythmia, epigastric etiology, musculoskeletal etiology, pulmonary etiology, among others. Skin exam does not show any signs of shingles. Recommend typical cardiac workup including D-dimer. It sounds as though his recent stress test was reassuring. Patient will need follow-up with his supervisor statement clerks. I suspect musculoskeletal etiology. Reevaluation(s) Time of Reevaluation #1: 02:39 Reevaluation #1: Updated patient on clinical findings, labs, imaging, EKGs. All reassuring. This, combined with recent reportedly normal stress test which sounds as though it was a cardiac PET scan is overall reassuring. I suspect musculoskeletal etiology. Counseled patient on this. I do recommend that he make a follow-up with his primary care provider, he assures me that he has 1 coming up in about 2 weeks. I have also recommended that he make a follow-up appointment with his supervisor statement clerks as it does not seem as though he fully understands the next steps for cardiac evaluation if needed. He verbalizes understanding and agreement and has no further questions. Vital Signs Vital signs: Initial Vital Signs Temperature 98.3 F 01/21/23 23:45 Temperature Source Temporal Artery Scan 01/21/23 23:45 Pulse Rate 76 01/21/23 23:45 Respiratory Rate 22 01/21/23 23:45 Blood Pressure 124/53 L 01/21/23 23:45 Blood Pressure Mean 76 01/21/23 23:45 Blood Pressure Position Supine 01/21/23 23:45 Pulse Oximetry 95 01/21/23 23:45 Oxygen Delivery Method Room Air 01/21/23 23:45 Vital Signs Temperature 98.3 F 01/21/23 23:45 Pulse Rate 76 01/21/23 23:45 Respiratory Rate 22 01/21/23 23:45 Blood Pressure 124/53 L 01/21/23 23:45 Pulse Oximetry 95 01/21/23 23:45 Oxygen Delivery Method Room Air 01/21/23 23:45 Temperature 98.3 F 01/21/23 23:45 Pulse Rate 69 01/22/23 01:02 Respiratory Rate 20 01/22/23 01:02 Blood Pressure 145/67 H 01/22/23 01:02 Pulse Oximetry 97 01/22/23 01:02 Oxygen Delivery Method Room Air 01/21/23 23:45 Medical Decision Making Lab Data Lab results reviewed: Yes I reviewed the patient's lab results Lab results narrative: Labs reassuring, stable for patient Labs: Lab Results 01/22/23 01/22/23 Range/Units 00:14 01:50 WBC 5.00 (4.50-11.00) K/uL RBC 4.56 (4.30-5.90) m/uL Hgb 12.9 L (13.5-17.5) gm/dL Hct 38.8 (37.0-53.0) % MCV 85 (80-100) fL MCH 28 (26-34) pg MCHC 33 (32-36) gm/dL RDW Coeff of Kaylen 14.4 (11.5-15.5) % Plt Count 149 (140-440) K/uL Neut % (Auto) 46.6 (42.0-72.0) % Lymph % (Auto) 40.4 (20-44) % [place] % (Auto) 7.4 (0.0-11.0) % Eos % (Auto) 5.0 (0.0-7.0) % Baso % (Auto) 0.4 (0.0-3.0) % Neut # (Auto) 2.33 (1.7-7.0) K/uL Lymph # (Auto) 2.02 (0.90-2.90) K/uL [place] # (Auto) 0.40 (0.00-0.90) K/UL Eos # (Auto) 0.25 (0.00-0.50) K/uL Baso # (Auto) 0.02 (0.00-0.30) K/uL Abs Immat Gran (auto) 0.01 (0.00-0.30) K/uL Imm/Tot Granulo (auto) 0.2 % D-Dimer Quant (PE/DVT) < 0.27 (0.00-0.50) ug/ml Sodium 139 (135-149) mmol/L Potassium 3.3 L (3.6-5.1) mmol/L Chloride 99 (96-114) mmol/L Carbon Dioxide 34 H (20-32) mmol/L Anion Gap 6 L (7-15) mEq/L BUN 31 H (7-30) mg/dL Creatinine 1.3 (0.5-1.5) mg/dL Estimated Creat Clear 52.49 Estimated GFR 62 ml/min Glucose 219 H (60-115) mg/dL Calcium 8.8 (8.4-10.6) mg/dL Total Bilirubin 0.4 (0.1-1.5) mg/dL AST 29 (12-35) U/L ALT 28 (4-50) U/L Alkaline Phosphatase 107 (40-150) U/L Troponin I < 0.01 L (0.01-0.04) ng/mL C-Reactive Protein 1.6 H (0.5-1.0) mg/dL NT-Pro-B Natriuret Pep 117 pg/mL Total Protein 7.0 (6.0-8.3) g/dL Albumin 3.7 (3.3-5.0) g/dL POC Troponin I 0.01 0.01 (0.01-0.04) ng/ml Imaging Data Chest x-ray: Attestation: I have reviewed the pertinent imaging results. My impression: No acute infiltrate or effusion Radiologist's impression: IMPRESSION: No acute cardiopulmonary process identified. Dictated by Gala Flynn MD @ 01/22/2023 1:47:53 AM ECG Data Attestation: I personally reviewed and interpreted this ECG as follows: Prior ECG tracings: available for review Interpretation: Normal sinus rhythm. No change from 12/13/22. There are no significant acute ST or T-wave abnormality. Here. Low voltage overall I suspect is based on body habitus but is similar from previous studies. Discharge Plan Discharge Clinical Impression: Non-cardiac chest pain Patient Disposition: Home w/ Parent or Adult Condition: Stable Instructions: Noncardiac Chest Pain (ED) Additional Instructions: As we discussed, your heart is checking out normally again tonight. This is great news. We also do not detect any signs of a new blood clot, electrolyte abnormality, dehydration, heart failure, pneumonia or other acute abnormality. I suspect that the reason for your chest pain is from strain on the muscles and bones of your chest wall because your body is deconditioned. It is okay to use Tylenol 1000 mg 3 times daily as needed for this discomfort. It is important that you follow-up with your supervisor statement clerks. I would recommend that you schedule an appointment to do this. It is quite clear that you do not understand the results of your stress test and if any further procedures are needed. I would recommend that you discuss this pain with your primary care provider your upcoming appointment. Activity Level: No Restrictions Discharge Diet: Diabetic Prescriptions: No Action amlodipine 10 mg tablet 10 mg PO DAILY aripiprazole 15 mg tablet 7.5 mg PO DAILY Eliquis 5 mg tablet 5 mg PO BID aspirin 81 mg tablet,delayed release (DR/EC) 81 mg PO DAILY venlafaxine 75 mg capsule,extended release 24hr 225 mg PO DAILY torsemide 20 mg tablet 20 mg PO DAILY isosorbide mononitrate 30 mg tablet extended release 24 hr 30 mg PO DAILY chlorthalidone 25 mg tablet 25 mg PO DAILY carbamazepine 200 mg tablet 200 mg PO BID pravastatin 80 mg tablet 80 mg PO HS pantoprazole 40 mg tablet,delayed release (DR/EC) 40 mg PO DAILY hydralazine 50 mg tablet 50 mg PO QID Patient Comments: 08,12,16,20 ezetimibe 10 mg tablet 10 mg PO DAILY pregabalin 100 mg capsule 100 mg PO QAM pregabalin 150 mg capsule 150 mg PO HS polyethylene glycol 3350 17 gram/dose powder 17 g PO DAILY Rx Instructions: AND TWICE DAILY NEEDED sennosides [senna] 8.6 mg tablet 8.6 mg PO DAILY ketoconazole 2 % shampoo 1 applic TOPICAL Q3D diphenhydramine HCl [Banophen] 50 mg capsule 50 mg PO Q6H PRN (Reason: itching) loperamide 2 mg capsule 2 mg PO Q6H PRN (Reason: loose stool) acetaminophen 500 mg tablet 500 mg PO Q6H nystatin 100,000 unit/gram powder 1 applic TOPICAL BID PRN albuterol sulfate 90 mcg/actuation HFA aerosol inhaler 1 inh INHALATION Q4H PRN (Reason: bronchospasm) icosapent ethyl [Vascepa] 1 gram capsule 2 g PO BID Humulin R U-500 (Conc) Kwikpen 500 unit/mL (3 mL) insulin pen 85 unit SUBCUT TID potassium chloride 20 mEq tablet extended release 20 meq PO DAILY Qty: 10 2RF clotrimazole 1 % cream 1 applic topical BID Rx Instructions: GROIN,PERIAREA AND ABDOMIN fluconazole 150 mg tablet 150 mg PO TUFR@09 gatifloxacin 0.5 % drops 1 drp ophthalmic (eye) QID ketorolac 0.5 % drops 1 drp ophthalmic (eye) QID Rx Instructions: STOP DATE 08/11/22 prednisolone acetate 1 % drops,suspension 1 drp ophthalmic (eye) QID Rx Instructions: STOP DATE 08/12/22 ergocalciferol (vitamin D2) 1,250 mcg (50,000 unit) capsule 50,000 unit PO WE@09 carvedilol 25 mg Tablet 25 mg PO Q12H 30 Days Qty: 60 0RF lisinopril 20 mg Tablet 20 mg PO DAILY 30 Days Qty: 60 0RF amoxicillin-pot clavulanate 875-125 mg tablet 1 tab PO BID 7 Days Qty: 14 0RF nystatin 100,000 unit/gram powder 1 applic topical BID Qty: 30 1RF hydrocortisone 2.5 % cream 1 applic topical BID PRNQty: 30 1RF cephalexin 500 mg capsule 500 mg PO TID 10 Days Qty: 30 0RF potassium chloride 20 mEq packet 20 meq PO DAILY 3 Days Qty: 3 0RF Follow Up/Referrals: Provider,Not a Local [Primary Care Provider] - Stand Alone Forms: [facility]
[2023-01-22 00:20] LABS: Basophils Absolute Auto 0.02 K/uL (0.00-0.30); Basophils Percent Auto 0.4 % (0.0-3.0); Eosinophils Absolute Auto 0.25 K/uL (0.00-0.50); Hematocrit 38.8 % (37.0-53.0); Hemoglobin* 12.9 gm/dL (13.5-17.5); Immature Granulocytes Abs Auto 0.01 K/uL (0.00-0.30); Immature Granulocytes Pct Auto 0.2 %; Lymphocytes Absolute Auto 2.02 K/uL (0.90-2.90); Lymphocytes Percent Auto 40.4 % (20-44); Mean Corpuscular HGB Conc 33 gm/dL (32-36); Mean Corpuscular Hemoglobin 28 pg (26-34); Mean Corpuscular Volume 85 fL (80-100); Monocytes Percent Auto 7.4 % (0.0-11.0); Neutrophils Absolute Auto 2.33 K/uL (1.7-7.0); Neutrophils Percent Auto 46.6 % (42.0-72.0); Platelet Count* 149 K/uL (140-440); RDW Coefficient of Variation % 14.4 % (11.5-15.5); Red Blood Count 4.56 m/uL (4.30-5.90)
[2023-01-22 00:24] LABS: Slide Review Reflex No
--- NOTE | 2023-01-22 00:32 | CRLHL7_ITS ---
For Patients: As a result of the Cures Act, medical imaging exams and procedure reports are released immediately into your electronic medical record. You may view this report before your referring provider. If you have questions, please contact your health care provider. INDICATION: Chest pain. TECHNIQUE: Chest 1 views. COMPARISON: December 08, 2022. FINDINGS: Cardiovascular and mediastinum: Cardiomediastinal silhouette is mildly enlarged. Lungs and pleural spaces: Low lung volumes.. No sign of pleural effusion. No pneumothorax. Bones and soft tissues: No significant findings. IMPRESSION: No acute cardiopulmonary process identified. Dictated by Gala Flynn MD @ 01/22/2023 1:47:53 AM (Electronically Signed)
[2023-01-22 00:33] LABS: Troponin, Point-of-Care* 0.01 ng/ml (0.01-0.04)
[2023-01-22 00:45] LABS: Albumin* 3.7 g/dL (3.3-5.0); Chloride* 99 mmol/L (96-114); Potassium* 3.3 mmol/L (3.6-5.1); Sodium* 139 mmol/L (135-149)
[2023-01-22 00:47] LABS: Creatinine* 1.3 mg/dL (0.5-1.5); Est. Creatinine Clearance* 52.49; Estimated Glomerular Filt Rate 62 ml/min
[2023-01-22 00:48] LABS: Alanine Aminotransferase* 28 U/L (4-50); Alkaline Phosphatase* 107 U/L (40-150); Anion Gap 6 mEq/L (7-15); Aspartate Amino Transferase* 29 U/L (12-35); Bilirubin Total* 0.4 mg/dL (0.1-1.5); Blood Urea Nitrogen* 31 mg/dL (7-30); Carbon Dioxide* 34 mmol/L (20-32)
[2023-01-22 00:49] LABS: Calcium* 8.8 mg/dL (8.4-10.6); Glucose* 219 mg/dL (60-115)
[2023-01-22 00:51] LABS: C Reactive Protein* 1.6 mg/dL (0.5-1.0); D Dimer Quantitative* < 0.27 ug/ml (0.00-0.50)
[2023-01-22 01:02] LABS: NT Pro B Type NatriureticPept* 117 pg/mL; Troponin I* < 0.01 ng/mL (0.01-0.04)
[2023-01-22 02:05] LABS: Troponin, Point-of-Care* 0.01 ng/ml (0.01-0.04)
== END 2023-01-22 03:47 | disposition home or self-care (01) ==
PROVIDERS: Emergency Provider Family Medicine
DX: R07.9 Chest pain, unspecified (principal)
CPT/HCPCS: 36415; 71045; 80053; 83880; 84484; 85025; 85379; 86140; 93005; 99284; 99285

== ENCOUNTER 2023-01-22 03:17 | Outpatient (CLI) | payer MEDICARE, MEDICAID, SELFPAY | END 2023-01-22 03:18 | disposition home or self-care (01) | LOC: AMB 01-25 12:47 | PROVIDERS: Visit Provider Family Medicine | DX: R53.1 Weakness (principal) | CPT/HCPCS: A0425; A0428 ==

== ENCOUNTER 2023-02-13 20:45 | Outpatient (CLI) | payer MEDICARE, MEDICAID, SELFPAY ==
--- OUTSIDE RECORDS SUMMARY | 2023-02-18 18:13 | XMS_ITS | CCD ---
Author Name Sandra Clark CNP Address [address] [place] [address] Phone Organization [facility] Phone Care Team Providers Care Uc Architect Name Role Phone Chelo Fonseca PA-C Primary Care Provider Unavaila ble Chelo Fonseca PA-C Chronic Care Management Nicole archer Summary Purpose DataExchange Insurance Providers Payer name Policy type / Coverage type Covered constitution party ID Effective Begin Date Effective End Date Medicare [place] Medicare Part B [id number] Unknown Unknown Medicaid [place] Medicare Part B [id number] Unknown Unknown Family history Sister Brittany Suggs [...] Jail 09/03/[address]: 6888681 Non-Smoker / No History of Smoking 09/02/[address]: [id number] No Alcohol Consum ption 09/02/2020 Allergies, Adverse Reactions, Alerts Substance Reaction Codes Entered Date Inactivated Date Status LISINOPRIL RxNorm: 98639 02/12/2020 No Inactive Da te Active Metformin HCl Unknown 02/12/2020 No Inactive Cristiano e Active Problems Condition Codes Effective Dates Condition St atus Coronary artery disease invo lving [place] coronary artery of [place] heart, angina presence unspecified ICD-10: I25.10 ICD-9: [...] Fill Instructions acetaminophen 500 mg tablet RxNorm: 941056 1 TABLET ORALLY 3 TIMES DAILY (MAX APAP:4GM/24HR) 12/15/19 23 024 Active potassium chloride ER 20 mEq tablet,extended release RxNorm: 292954 Take 1 Tablet(s) Oral BID 12/09/19 23 023 Active d/c 20mEq once daily (sent from hospital) clotrimazole 1 % topical cream RxNorm: 853811 apply 1g topically to top of feet and in between toes BID 12/09/19 23 023 Active nystatin 100,000 unit/gram topical powder RxNorm: 434397 APPLY TO AFFECTED AREAS TOPICALLY 2 TIMES DAILY 11/21/19 024 Active Nystop 100,000 unit/gram topical powder RxNorm: 288618 Apply to abd folds, under breasts and L side of groin Topical BID x 14 days, then BID PRN 11/20/19 023 Inactive dx: yeast dermatitis [place] Ultra Strength 4 %-30 %-10 % topical cream RxNorm: 582473 Apply 1 Gram(s) Topical QID PRN to feet and legs for neuropathic pain 11/11/19 024 Active hydrocortisone 2.5 % topical cream RxNorm: 279838 Apply 1/2 Gram(s) Topical BID as needed 11/10/19 No Stop Date Active clotrimazole 1 % topical cream RxNorm: 776822 Apply 1/2 Gram(s) Topical BID Apply to affected areas of groin, periarea, and abdominal topically 2 times daily 11/10/19 023 Inactive Levemir FlexPen 100 unit/mL (3 mL) solution subcutaneous insulin pen RxNorm: 432618 Inject 30 Unit(s) Subcutaneous BID 10/07/19 024 Active Humulin R U-500 (Concentrated) Insulin 500 unit/mL subcutaneous soln RxNorm: 292729 Inject 100 Unit(s) Subcutaneous TID 10/07/19 024 Active Ozempic 0.25 mg or 0.5 mg (2 mg/3 mL) subcutaneous pen injector RxNorm: 5883395 Inject 1/2 Milligram(s) Subcutaneous QW once a week 10/07/19 024 Active aripiprazole 15 mg tablet RxNorm: 088246 1/2 TAB (7.5MG) ORALLY DAILY (DX:MAJOR DEPRESSIVE DISORDER) 09/23/19 023 Active Accu-Chek Guide test strips RxNorm: Use 1 Test Strip QID 09/15/19 024 Active ok to substitute with any covered alternative test strip Lancets,Thin 28 gauge RxNorm: Use 1 as directed QID 09/15/19 23 024 Active torsemide 20 mg tablet RxNorm: 399990 Take 1 Tablet(s) Oral BID 09/09/19 23 024 Active d/c once daily dosing carvedilol 25 mg tablet RxNorm: 084823 Take 1 Tablet(s) Oral QD 08/25/19 024 Active pregabalin 150 mg capsule RxNorm: 179552 1 Capsule(s) Oral HS at bed time 08/18/19 23 023 Active pregabalin 100 mg capsule RxNorm: 779891 1 Capsule(s) Oral QAM every morning 08/18/19 23 023 Active carvedilol 25 mg tablet RxNorm: 543783 1 Tablet(s) Oral QD 07/28/19 23 023 Inactive lisinopril 20 mg tablet RxNorm: 910340 Give 1 Tablet(s) Oral QD 07/28/19 23 023 Inactive Lyrica 150 mg capsule RxNorm: 395485 Take 1 Capsule(s) Oral QHS every night at bedtime 07/19/19 23 023 Inactive d/c 100mg dose Diflucan 150 mg tablet RxNorm: 685178 Take 1 Tablet(s) Oral QD repeat on day 3 and 6 07/19/19 23 023 Inactive pregabalin 100 mg capsule RxNorm: 172971 Take 1 Capsule(s) Oral QAM every morning 07/19/19 23 023 Inactive gatifloxacin 0.5 % eye drops RxNorm: 635224 Instill 1 Drop(s) as directed TID Instill 1 drop in to affected eye(s) starting 1 day prior to surgery and continue until gone (do not exceed 4 weeks). 07/13/19 23 023 Inactive carvedilol 25 mg tablet RxNorm: 514380 2 Tablet(s) Oral BID 07/13/19 23 023 Inactive Humulin R Regular U-100 Insulin 100 unit/mL injection solution RxNorm: 886616 85 Unit(s) Injection TID 07/13/19 23 023 Inactive ketorolac 0.5 % eye drops RxNorm: 633123 Instill 1 Drop(s) as directed QID Instill 1 drop into affected eye(s) 4 times daily starting 1 day prior to surgery and continue until gone (do not exceed 4 weeks). 07/13/19 23 023 Inactive Diflucan 150 mg tablet RxNorm: 764071 Take 1 Tablet(s) Oral QD repeat on day 3 and 6 06/30/19 23 023 Inactive Accu-Chek Guide test strips RxNorm: Use 1 Test Strip QID Use 1 test strip to monitor blood glucose 4 times daily and as needed. Dx:E11.42. 06/23/19 023 Inactive ok to substitute with any covered alternative test strip dextromethorphan-gu aifenesin 10 mg-100 mg/5 mL oral liquid RxNorm: 082143 Take 10 Milliliter(s) Oral every 4 hours as needed for cough 06/19/19 23 023 Inactive dextromethorphan-gu aifenesin 10 mg-100 mg/5 mL oral liquid RxNorm: 454777 Take 10 Milliliter(s) Oral every 4 hours as needed for cough 06/19/19 23 023 Inactive Lyrica 150 mg capsule RxNorm: 607847 Take 1 Capsule(s) Oral QHS every night at bedtime 06/18/19 23 023 Inactive d/c 100mg dose aripiprazole 15 mg tablet RxNorm: 737493 /2 TAB (7.5MG) ORALLY DAILY (DX:MAJOR DEPRESSIVE DISORDER) 06/05/19 23 023 Inactive pregabalin 100 mg capsule RxNorm: 888145 1 Capsule(s) Oral QAM every morning 06/02/19 23 023 Inactive Banophen 50 mg capsule RxNorm: 2790064 Take 1 Capsule(s) Oral Q6H every 6 hours as needed 05/19/19 23 No Stop Date Active Novolog Flexpen U-100 Insulin aspart 100 unit/mL (3 mL) subcutaneous RxNorm: 9005494 Inject 10 Unit(s) Subcutaneous QHS every night at bedtime with nighttime snack 04/08/20 Inactive Novolog Flexpen U-100 Insulin aspart 100 unit/mL (3 mL) subcutaneous RxNorm: 1728349 Inject 42 Unit(s) Subcutaneous TID in addition to sliding scale 04/08/20 Inactive d/c 36u albuterol sulfate HFA 90 mcg/actuation aerosol inhaler RxNorm: 0868741 Take 2 Puff(s) Inhalation Q4H every four hours as needed as needed for SOB, cough, or wheezing 04/07/20 030 Active Banophen 50 mg capsule RxNorm: 7189020 Take 1 Capsule(s) Oral Q6H every 6 hours as needed 04/06/20 023 Inactive diphenhydramine 50 mg tablet RxNorm: 7825474 Take 1 Tablet(s) Oral Q6H every 6 hours as needed 04/06/20 022 Inactive diphenhydramine 50 mg tablet RxNorm: 2907396 1 Tablet(s) Oral Q6H every 6 hours as needed 04/06/20 022 Inactive Abilify 15 mg tablet RxNorm: 200733 1/2 Tablet(s) Oral QD 03/10/20 023 Inactive Shingrix (PF) 50 mcg/0.5 mL intramuscular suspension, kit RxNorm: 4534035 Administer 1/2 Milliliter(s) Intramuscular QD one time shingrix step 2 ( step 1 given 11/04/21) WITH needle - Nursing please administer upon arrival and once administered post a bridge message 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, 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, expiration date, and lot# so we can update [facility] 02/18/20 22 022 Inactive dispense with needle Shingrix (PF) 50 mcg/0.5 mL intramuscular suspension, kit RxNorm: 2276380 Administer 1/2 Milliliter(s) Intramuscular QD one time shingrix step 2 ( step 1 given 11/04/21) WITH needle - Nursing please administer upon arrival and once administered post a bridge message with 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, 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, expiration date, and lot# so we can update [facility] 02/18/20 22 022 Inactive dispense with needle polyethylene glycol 3350 17 gram/dose oral powder RxNorm: 426036 Take 17=1 capful Gram(s) Oral QD mix with 4-8oz of liquid 01/08/20 023 Inactive take this in addition to BID prn order Lyrica 100 mg capsule RxNorm: 446537 Take 1 Capsule(s) Oral QAM every morning 01/08/20 22 022 Inactive d/c 50mg dose acetaminophen 500 mg tablet RxNorm: 763168 Take 1 Tablet(s) Oral TID 01/08/20 22 022 Inactive d/c PRN order Lyrica 150 mg capsule RxNorm: 776559 Take 1 Capsule(s) Oral QHS every night at bedtime 01/08/20 023 Inactive d/c 100mg dose Abilify 5 mg tablet RxNorm: 555934 Take 1 Tablet(s) Oral QD take 1 tab po QD #30 refill 5 dx: MDD 12/12/19 22 022 Inactive Abilify 5 mg tablet RxNorm: 414147 Take 1 Tablet(s) Oral QD take 1 tab po QD #30 refill 5 dx: MDD 12/12/19 22 022 Inactive Novolog Flexpen U-100 Insulin aspart 100 unit/mL (3 mL) subcutaneous RxNorm: 1027647 Inject 42 Unit(s) Subcutaneous TID in addition to sliding scale 12/10/19 22 022 Inactive d/c 36u chlorthalidone 25 mg tablet RxNorm: 762544 Take 1 Tablet(s) Oral QAM every morning 12/10/19 22 023 Inactive pregabalin 50 mg capsule RxNorm: 204665 Take 1 Capsule(s) Oral QAM every morning 11/12/19 22 022 Inactive tetanus-diphtheria toxoids-Td 2 Lf unit-2 Lf unit/0.5 mL IM suspension RxNorm: 139 Take 0.5 Miscellaneous Intramuscular 11/12/19 22 022 Inactive need tdap - nursing to administer upon arrival pregabalin 50 mg capsule RxNorm: 608998 Take 1 Capsule(s) Oral QAM every morning 10/16/19 22 022 Inactive pregabalin 50 mg capsule RxNorm: 118280 Take 1 Capsule(s) Oral QAM every morning 10/16/19 22 022 Inactive pregabalin 50 mg capsule RxNorm: 322710 1 Capsule(s) Oral QAM every morning 10/15/19 22 022 Inactive Shingrix (PF) 50 mcg/0.5 mL intramuscular suspension, kit RxNorm: 7518011 Administer 1/2 Milliliter(s) Intramuscular one time Nursing please administer upon arrival and once administered post a bridge message with 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 10/09/19 22 022 Inactive shingrix step 1 cholecalciferol (vitamin D3) 1,250 mcg (50,000 unit) capsule RxNorm: 424220 Take 1 Capsule(s) Oral QW once a [...] aspart 100 unit/mL (3 mL) subcutaneous RxNorm: 6936291 Inject 10 Unit(s) Subcutaneous QHS every night at bedtime with nighttime snack 10/08/19 22 022 Inactive Shingrix (PF) 50 mcg/0.5 mL intramuscular suspension, kit RxNorm: 3205714 ADMINISTER 2-DOSE SERIES PER CDC GUIDELINES 10/08/19 22 Active Shingrix (PF) 50 mcg/0.5 mL intramuscular suspension, kit RxNorm: 9421440 ADMINISTER 2-DOSE SERIES PER CDC GUIDELINES 10/08/19 22 Inactive Novolog Flexpen U-100 Insulin aspart 100 unit/mL (3 mL) subcutaneous RxNorm: 7090288 Inject 36 Unit(s) Subcutaneous TID in addition to sliding scale 10/08/19 Inactive Novofine Autocover 30 gauge x 1/3 needle RxNorm: Use 1 Miscellaneous UD as directed Use 1 needle as directed to administer insulin 5 times a day Dx:E11.42. 10/03/19 Inactive ok to substitute with any covered alternative pen needle benzoyl peroxide 10 % topical cleanser RxNorm: 093638 Apply 1 Application Topical QD apply to face, wash rinse and dry once daily (may change to QOD if drying) 08/19/19 022 Inactive (%covered by insurance) #60ml refill 11 dx: acne benzoyl peroxide 10 % topical cleanser RxNorm: 765101 Apply 1 Application Topical QD apply to face, wash rinse and dry once daily (may change to QOD if drying) 08/19/19 022 Inactive (%covered by insurance) #60ml refill 11 dx: acne benzoyl peroxide 10 % topical cleanser RxNorm: 429056 Apply 1 Application Topical QD apply to face, wash rinse and dry once daily (may change to QOD if drying) 08/19/19 22 022 Inactive (%covered by insurance) #60ml refill 11 dx: acne Lyrica 50 mg capsule RxNorm: 393810 Take 1 Capsule(s) Oral QAM every morning Take 1 capsule by mouth once daily 08/19/19 22 Inactive benzoyl peroxide 10 % topical cleanser RxNorm: 923132 Apply 1 Application Topical QD apply to face, wash rinse and dry once daily (may change to QOD if drying) 08/19/19 22 022 Inactive (%covered by insurance) #60ml refill 11 dx: acne Lyrica 100 mg capsule RxNorm: 362027 Take 1 Capsule(s) Oral QHS every night at bedtime Take 1 capsule by mouth once daily at bedtime 08/19/19 22 022 Inactive Lyrica 100 mg capsule RxNorm: 530450 Take 1 Capsule(s) Oral QHS every night at bedtime Take 1 capsule by mouth once daily at bedtime 08/16/19 22 022 Inactive Lyrica 50 mg capsule RxNorm: 566941 Take 1 Capsule(s) Oral QAM every morning Take 1 capsule by mouth once daily 08/16/19 22 022 Inactive Levemir FlexTouch U-100 Insulin 100 unit/mL (3 mL) subcutaneous pen RxNorm: 902117 Inject 86 Unit(s) Subcutaneous BID 08/05/19 22 022 Inactive d/c 83units BID Lyrica 100 mg capsule RxNorm: 188197 Take 1 Capsule(s) Oral QHS every night at bedtime Take 1 capsule by mouth once daily at bedtime 07/14/19 22 022 Inactive Lyrica 50 mg capsule RxNorm: 165355 Take 1 Capsule(s) Oral QAM every morning Take 1 capsule by mouth once daily 07/14/19 22 022 Inactive Levemir FlexTouch U-100 Insulin 100 unit/mL (3 mL) subcutaneous pen RxNorm: 115949 Inject 83 Unit(s) Subcutaneous BID 07/08/19 22 [...] 30 mg tablet,extended release 24 hr RxNorm: 838377 Take 1 Tablet(s) Oral QD 05/05/20 21 No Stop Date Active hydralazine 50 mg tablet RxNorm: 558710 Take 1 Tablet(s) Oral QID 05/05/20 21 022 Inactive venlafaxine ER 225 mg tablet,extended release 24 hr RxNorm: 390582 Take 1 Tablet(s) Oral QD 05/05/20 21 021 Inactive venlafaxine ER 225 mg tablet,extended release 24 hr RxNorm: 926443 Take 1 Tablet(s) Oral QD 05/05/20 21 022 Inactive hydralazine 50 mg tablet RxNorm: 444830 Take 1 Tablet(s) Oral QID 05/05/20 21 Inactive aspirin 81 mg tablet,delayed release RxNorm: 026545 Take 1 Tablet(s) Oral QD 03/31/20 21 022 Inactive Zetia 10 mg tablet RxNorm: 266692 Take 1 Tablet(s) Oral QD 03/31/20 21 Inactive Vitamin D2 1,250 mcg (50,000 unit) capsule RxNorm: 6290435 Take 1 Capsule(s) Oral QW once a week x 12 weeks 03/31/20 022 Inactive Vitamin D2 1,250 mcg (50,000 unit) capsule RxNorm: 8432080 Take 1 Capsule(s) Oral QW once a week 03/31/20 Inactive Zetia 10 mg tablet RxNorm: 467381 Take 1 Tablet(s) Oral QD 03/31/20 Inactive hydralazine 25 mg tablet RxNorm: 822156 Take 1 Tablet(s) Oral QID 03/31/20 021 Inactive hydralazine 25 mg tablet RxNorm: 803755 Take 1 Tablet(s) Oral QID 03/31/20 Inactive hydralazine 10 mg tablet RxNorm: 648100 Take 1 Tablet(s) Oral QID 03/03/20 021 Inactive cephalexin 500 mg tablet RxNorm: 389957 Take 1 Tablet(s) Oral QID 02/27/20 021 Inactive cephalexin 500 mg tablet RxNorm: 365369 Take 1 Tablet(s) Oral QID 02/27/20 021 Inactive lisinopril 40 mg tablet RxNorm: 918979 Take 1 Tablet(s) Oral QD 02/11/20 21 023 Inactive Eliquis 5 mg tablet RxNorm: 0291453 Take 1 Tablet(s) Oral BID 01/05/20 022 Inactive Eliquis 5 mg tablet RxNorm: 4180021 Take 2 Tablet(s) Oral QD 01/01/20 21 021 Inactive Lyrica 50 mg capsule RxNorm: 039341 Take 1 Capsule(s) Oral QAM every morning 12/24/19 21 021 Inactive Lyrica 100 mg capsule RxNorm: 998124 Take 1 Capsule(s) Oral QHS every night at bedtime 12/24/19 21 021 Inactive clotrimazole 1 % topical cream RxNorm: 606514 Apply to right foot and toes Topical BID 12/04/19 21 023 Inactive metoprolol succinate ER 200 mg tablet,extended release 24 hr RxNorm: 306575 Take 1 Tablet(s) Oral QD 12/04/19 023 Inactive ciprofloxacin 500 mg tablet RxNorm: 648233 Take 1 Tablet(s) Oral QD 11/30/19 21 021 Inactive DX ofloxacin otic drops Accu-Chek Guide test strips RxNorm: USE 1 TO CHECK GLUCOSE 4 TIMES DAILY AND NEEDED 11/15/19 21 023 Inactive Blood Glucose Test strips RxNorm: Use 1 Test Strip QID at PRN 11/05/19 21 023 Inactive E11.42 lisinopril 30 mg tablet RxNorm: 227113 Take 1 Tablet(s) Oral QD 10/30/19 021 Inactive lisinopril 20 mg tablet RxNorm: 783343 Take 1 Tablet(s) Oral QD 10/23/19 021 Inactive lisinopril 20 mg tablet RxNorm: 467686 Take 1 Tablet(s) Oral QD 10/23/19 021 Inactive lisinopril 10 mg tablet RxNorm: 870310 Take 1 Tablet(s) Oral QD 10/02/19 021 Inactive icosapent ethyl 1 gram capsule RxNorm: 8783271 Take 2 Capsule(s) (2 gm) Oral BID with meals 09/12/19 022 Inactive Okay to dispense one 2gm tab if you have that available. icosapent ethyl 1 gram capsule RxNorm: 7379585 Take 2 Capsule(s) Oral BID 09/12/19 021 Inactive Okay to dispense one 2gm tab if you have that available. amlodipine 10 mg tablet RxNorm: 706103 Take 1 Tablet(s) Oral QD 09/04/19 022 Inactive aspirin 81 mg tablet,delayed release RxNorm: 373291 Take 1 Tablet(s) Oral QD 09/04/19 21 021 Inactive Levemir FlexTouch U-100 Insulin 100 unit/mL (3 mL) subcutaneous pen RxNorm: 208039 Inject 150 Unit(s) Subcutaneous BID 09/04/19 21 022 Inactive venlafaxine ER 150 mg tablet,extended release 24 hr RxNorm: 284089 Take 1 Tablet(s) Oral QD 09/04/19 Inactive clotrimazole-betame thasone 1 %-0.05 % topical cream RxNorm: 161401 Apply to rash on red area on left abdomen/chest Topical BID 08/10/19 21 Inactive amlodipine 5 mg tablet RxNorm: 793461 Take 1 Tablet(s) Oral QD 07/31/19 Inactive cephalexin 500 mg tablet RxNorm: 349186 Take 1 Tablet(s) Oral BID BID - Twice Daily 07/31/19 Inactive Start 08/01/20 pantoprazole 40 mg tablet,delayed release RxNorm: 226631 Take 1 Tablet(s) Oral QAM every morning 07/08/19 Inactive senna 8.6 mg tablet RxNorm: 157942 Take 1 Tablet(s) Oral QD 07/08/19 022 Inactive pravastatin 80 mg tablet RxNorm: 527414 Take 1 Tablet(s) Oral QHS every night at bedtime 07/08/19 Inactive carbamazepine 200 mg tablet RxNorm: 892449 Take 1 Tablet(s) Oral BID 07/08/19 022 Inactive clopidogrel 75 mg tablet RxNorm: 947196 Take 1 Tablet(s) Oral QD 07/08/19 Inactive Blood Glucose Test strips RxNorm: Use 1 Test Strip QID at PRN 07/08/19 Inactive E11.42 Novolog Flexpen U-100 Insulin aspart 100 unit/mL (3 mL) subcutaneous RxNorm: 8772312 Administer per sliding scale Milliliter(s) Subcutaneous TID 151-200: 10 u; 201-250: 20 u; 251-300: 30 u; 301-350: 40 u; 351-400: 50 u. 07/08/19 21 022 Inactive lisinopril 5 mg tablet RxNorm: 402081 Take 1 Tablet(s) Oral QD 07/08/19 021 Inactive Novolog Flexpen U-100 Insulin aspart 100 unit/mL (3 mL) subcutaneous RxNorm: 7747869 Inject 85 Unit(s) Subcutaneous TID 07/08/19 21 022 Inactive clotrimazole 1 % topical cream RxNorm: 616147 Apply to bilateral groin areas Topical BID 07/08/19 022 Inactive metoprolol succinate ER 200 mg tablet,extended release 24 hr RxNorm: 877133 Take 1 Tablet(s) Oral QD 07/08/19 21 021 Inactive Vitamin D3 25 mcg (1,000 unit) tablet RxNorm: 386813 Take 1 Tablet(s) Oral QD 07/08/19 021 Inactive isosorbide dinitrate 30 mg tablet RxNorm: 209011 Take 1 Tablet(s) Oral QD 07/08/19 021 Inactive Levemir FlexTouch U-100 Insulin 100 unit/mL (3 mL) subcutaneous pen RxNorm: 743953 Inject 140 Unit(s) Subcutaneous BID 07/08/19 21 021 Inactive torsemide 20 mg tablet RxNorm: 690515 Take 1 Tablet(s) Oral QD 07/08/19 21 023 Inactive venlafaxine 75 mg tablet RxNorm: 691594 Take 1 Tablet(s) Oral QD 07/08/19 021 Inactive acetaminophen 500 mg tablet RxNorm: 699134 Take 1 Tablet(s) Oral TID as needed for headache 06/18/19 021 Inactive acetaminophen 500 mg tablet RxNorm: 643023 Take 1 Tablet(s) Oral TID as needed for headache 06/18/19 021 Inactive Lyrica 100 mg capsule RxNorm: 152390 Take 1 Capsule(s) Oral QHS every night at bedtime 06/11/19 21 021 Inactive Lyrica 50 mg capsule RxNorm: 730891 Take 1 Capsule(s) Oral QAM every morning 06/10/19 21 021 Inactive hydrocortisone 2.5 % topical cream RxNorm: 340621 Apply to bilateral groin creases Topical BID 05/15/20 20 021 Inactive clotrimazole 1 % topical cream RxNorm: 385457 Apply to bilateral groin areas Topical BID 05/15/20 20 Inactive Lyrica 50 mg capsule RxNorm: 155891 Take 1 Capsule(s) Oral QAM every morning 05/14/20 20 Inactive Lyrica 100 mg capsule RxNorm: 669126 Take 1 Capsule(s) Oral QHS every night [...] Inactive Nystop 100,000 unit/gram topical powder RxNorm: 730252 Apply to abd folds, under breasts and L side of groin Topical BID x 14 days, then BID PRN 04/08/20 20 Inactive dx: yeast dermatitis Lyrica 100 mg capsule RxNorm: 221684 Take 1 Capsule(s) Oral QHS every night at bedtime 03/13/20 20 Inactive Lyrica 50 mg capsule RxNorm: 955343 Take 1 Capsule(s) Oral QAM every morning 03/13/20 20 Inactive ketoconazole 2 % shampoo RxNorm: 922748 Apply Topical two times a week with showers 03/11/20 20 021 Inactive cholecalciferol (vitamin D3) 50 mcg (2,000 unit) tablet RxNorm: 722410 Take 1 Tablet(s) Oral QD 03/11/20 20 Inactive Zetia 10 mg tablet RxNorm: 976093 Take 1 Tablet(s) Oral QD 03/07/20 20 Inactive Zetia 10 mg tablet RxNorm: 561911 Take 1 Tablet(s) Oral QD 03/07/20 20 Inactive Lyrica 50 mg capsule RxNorm: 945974 Take 1 Capsule(s) Oral QAM every morning 02/15/20 20 Inactive Lyrica 100 mg capsule RxNorm: 561249 Take 1 Capsule(s) Oral QHS every night at bedtime 02/15/20 Inactive Lyrica 100 mg capsule RxNorm: 123119 Take 1 Capsule(s) Oral QHS every night at bedtime 02/15/20 Inactive Lyrica 50 mg capsule RxNorm: 220820 Take 1 Capsule(s) Oral QAM every morning 02/15/20 Inactive venlafaxine ER 75 mg capsule,extended release 24 hr RxNorm: 019853 Take 3 Capsule(s) Oral QD 06/12/19 22 Active polyethylene glycol 3350 17 gram/dose oral powder RxNorm: 739909 Take 17=1 capful Gram(s) Oral BID as needed mix with 4-8oz of liquid 06/12/19 22 Active metoprolol succinate ER 200 mg tablet,extended release 24 hr RxNorm: 851530 Take 1 Tablet(s) Oral QD 08/12/19 23 Active loperamide 2 mg capsule RxNorm: 870735 Take 1 Capsule(s) Oral QID as needed 06/12/19 22 Active hydralazine 50 mg tablet RxNorm: 800543 Take 1 Tablet(s) Oral QID 08/12/19 23 Active icosapent ethyl 1 gram capsule RxNorm: 3967307 Take 2 Capsule(s) (2 gm) Oral BID with meals 10/07/19 23 023 Inactive Okay to dispense one 2gm tab if you have that available. Levemir FlexTouch U-100 Insulin 100 unit/mL (3 mL) subcutaneous pen RxNorm: 759755 Inject 80 Unit(s) Subcutaneous BID 07/14/19 23 023 Inactive Novolog Flexpen U-100 Insulin aspart 100 unit/mL (3 mL) subcutaneous RxNorm: 0372816 Insert 30 Unit(s) Subcutaneous TID with meals [...] Vaccine Completed 01/26/2023 Appointment: Sandra Clark WPtel: [address] [place], [place] [phone] Telehealth Psych Follow Up 12/09 Appointment: Rosalina Shirley WPtel: [address] [place], [place] [phone] [facility] 10/26/2022 Referral: [facility] WPtel: [address], [address] [id number] Referral Records Received 09/21/2022 Appointment: Rosalina Shirley WPtel: [address] [place], [place] [phone] [place] F/U 08/11/2022 Appointment: [place] Rosalina WPtel: [address] [facility] [address] [id number] [place] F/U 07/14/2022 Appointment: Rosalina Shirley WPtel: [address] [facility] [address] [id number] [place] F/U 02/10/2022 Referral: [facility] WPtel: [phone] [id number] [place] Referral Completed 05/28/2021 Referral: General Cardiology [...] attention.??Sister Jyotsna involved in his care cell# [phone]??Guardian: Don (rosalina met in person 09/01/21), now has Lexii (same group as don)Lab Schedule: * 01/12/2023
--- OUTSIDE RECORDS SUMMARY | 2023-02-18 18:14 | XMS_ITS | CCD ---
Author Name Unknown Organization Unknown Care Team Providers Care Psych Assistant Name Role Phone Chelo Fonseca PA-C Primary Care Provider Unavaila ble Chelo Fonseca PA-C Chronic Care Management Nicole archer Summary Purpose DataExchange Insurance Providers Payer name Policy type / Coverage type Covered democrat ID Effective Begin Date Effective End Date [place] B [id number] Unknown Unknown [place] Part B [id number] Unknown Unknown Family history Sister Brittany Suggs [...] Fdc 09/03/[address]: 2925354 Non-Smoker / No History of Smoking 09/02/[address]: 637107212 No Alcohol Consum ption 09/02/2020 Allergies, Adverse Reactions, Alerts Substance Reaction Codes Entered Date Inactivated Date Status LISINOPRIL RxNorm: 53175 02/12/2020 No Inactive Da te Active Metformin HCl Unknown 02/12/2020 No Inactive Cristiano e Active Problems Condition Codes Effective Dates Condition St atus Annual physical exam ICD-10: Z00.00 ICD-9: V70.0 02/02/2023 Active Coronary artery disease invo lving [place] coronary artery of [place] heart, angina presence unspecified ICD-10: I25.10 ICD-9: 414.01 02/02/2023 Active Encounter for other specifie d special examinations ICD-10: Z01.89 ICD-9: V72.85 02/02/2023 Active Encounter for screening for nutritional disorder ICD-10: Z13.21 ICD-9: V77.99 02/02/2023 Active Hyperlipidemia associated wi th type 2 diabetes mellitus ICD-10: E11.69 ICD-9: 250.80 02/02/2023 Active Other fdc (current) dr ug therapy ICD-10: Z79.899 ICD-9: V58.69 02/02/2023 Active Stage 2 chronic kidney disea se due to type 2 diabetes mellitus ICD-10: E11.22 ICD-9: 250.40 02/02/2023 Active Type 2 diabetes mellitus wit h diabetic polyneuropathy, with long-term current use of insulin ICD-10: E11.42 ICD-9: 250.60 02/02/2023 Active Hypertensive heart disease w ithout heart failure ICD-10: I11.9 ICD-9: 402.90 12/08/2022 Active Hypokalemia ICD-10: E87.6 ICD-9: 276.8 12/08/2022 Active Tinea pedis of both feet ICD-10: B35.3 ICD-9: 110.4 12/08/2022 Active Onychogryposis ICD-10: L60.2 ICD-9: 703.8 11/10/2022 Active Paraparesis of both lower limbs ICD-10: G82.20 ICD-9: 344.1 11/10/2022 Active 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 ICD-10: K59.01 ICD-9: 564.01 10/06/2022 Active Lower extremity edema ICD-10: R60.0 ICD-9: 782.3 10/06/2022 Active Pain of right heel ICD-10: M79.671 ICD-9: 729.5 10/06/2022 Active Recurrent major depressive disorder, in partial [...] ICD-10: Z23 ICD-9: V03.89 02/10/2022 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 [...] ICD-10: M10 .30 ICD-9: 274.10 11/11/2021 Active Learning disability ICD-10: F81.9 ICD-9: [...] 75 mg capsule,extended release 24 hr RxNorm: 673042 Take 3 Capsule(s) Oral QD 02/04/20 23 023 Inactive FreeStyle Chema 2 Sensor kit RxNorm: use as directed 02/04/20 23 023 Inactive FreeStyle Chema 2 Sensor kit RxNorm: use as directed 02/04/20 23 024 Active fluconazole 150 mg tablet RxNorm: 231537 Take 1 Tablet(s) Oral on day 3 and on day 6 02/03/20 23 024 Active chlorthalidone 25 mg tablet RxNorm: 261019 Take 1 Tablet(s) Oral QAM every morning 02/03/20 No Stop Date Active venlafaxine ER 150 mg capsule,extended release 24 hr RxNorm: 433907 Take 1 Capsule(s) Oral QD 02/03/20 23 023 Inactive acetaminophen 500 mg tablet RxNorm: 953830 1 TABLET ORALLY 3 TIMES DAILY (MAX APAP:4GM/24HR) 12/15/19 23 024 Active potassium chloride ER 20 mEq tablet,extended release RxNorm: 861604 Take 1 Tablet(s) Oral BID 12/09/19 023 Active d/c 20mEq once daily (sent from hospital) clotrimazole 1 % topical cream RxNorm: 233265 apply 1g topically to top of feet and in between toes BID 12/09/19 23 023 Active nystatin 100,000 unit/gram topical powder RxNorm: 043794 APPLY TO AFFECTED AREAS TOPICALLY 2 TIMES DAILY 11/21/19 23 024 Active Nystop 100,000 unit/gram topical powder RxNorm: 186955 Apply to abd folds, under breasts and L side of groin Topical BID x 14 days, then BID PRN 11/20/19 23 023 Inactive dx: yeast dermatitis [place] Ultra Strength 4 %-30 %-10 % topical cream RxNorm: 449487 Apply 1 Gram(s) Topical QID PRN to feet and legs for neuropathic pain 11/11/19 23 024 Active hydrocortisone 2.5 % topical cream RxNorm: 332942 Apply 1/2 Gram(s) Topical BID as needed 11/10/19 23 No Stop Date Active clotrimazole 1 % topical cream RxNorm: 492314 Apply 1/2 Gram(s) Topical BID Apply to affected areas of groin, periarea, and abdominal topically 2 times daily 06/26/ 023 Inactive Levemir FlexPen 100 unit/mL (3 mL) solution subcutaneous insulin pen RxNorm: 800578 Inject 30 Unit(s) Subcutaneous BID 10/07/19 024 Active Humulin R U-500 (Concentrated) Insulin 500 unit/mL subcutaneous soln RxNorm: 584144 Inject 100 Unit(s) Subcutaneous TID 10/07/19 024 Active Ozempic 0.25 mg or 0.5 mg (2 mg/3 mL) subcutaneous pen injector RxNorm: 3687093 Inject 1/2 Milligram(s) Subcutaneous QW once a week 10/07/19 024 Active aripiprazole 15 mg tablet RxNorm: 186032 1/2 TAB (7.5MG) ORALLY DAILY (DX:MAJOR DEPRESSIVE DISORDER) 09/23/19 023 Active Accu-Chek Guide test strips RxNorm: Use 1 Test Strip QID 09/15/19 23 024 Active ok to substitute with any covered alternative test strip Lancets,Thin 28 gauge RxNorm: Use 1 as directed QID 09/15/19 23 024 Active torsemide 20 mg tablet RxNorm: 773718 Take 1 Tablet(s) Oral BID 09/09/19 024 Active d/c once daily dosing carvedilol 25 mg tablet RxNorm: 968662 Take 1 Tablet(s) Oral QD 08/25/19 024 Active pregabalin 150 mg capsule RxNorm: 618922 1 Capsule(s) Oral HS at bed time 08/18/19 023 Inactive pregabalin 100 mg capsule RxNorm: 443164 1 Capsule(s) Oral QAM every morning 08/18/19 023 Inactive carvedilol 25 mg tablet RxNorm: 814740 1 Tablet(s) Oral QD 07/28/19 23 023 Inactive lisinopril 20 mg tablet RxNorm: 730786 Give 1 Tablet(s) Oral QD 07/28/19 23 023 Inactive Lyrica 150 mg capsule RxNorm: 873483 Take 1 Capsule(s) Oral QHS every night at bedtime 07/19/19 23 023 Inactive d/c 100mg dose Diflucan 150 mg tablet RxNorm: 967672 Take 1 Tablet(s) Oral QD repeat on day 3 and 6 07/19/19 23 023 Inactive pregabalin 100 mg capsule RxNorm: 351488 Take 1 Capsule(s) Oral QAM every morning 07/19/19 23 023 Inactive gatifloxacin 0.5 % eye drops RxNorm: 739426 Instill 1 Drop(s) as directed TID Instill 1 drop in to affected eye(s) starting 1 day prior to surgery and continue until gone (do not exceed 4 weeks). 07/13/19 23 023 Inactive carvedilol 25 mg tablet RxNorm: 802853 2 Tablet(s) Oral BID 07/13/19 23 023 Inactive Humulin R Regular U-100 Insulin 100 unit/mL injection solution RxNorm: 213296 85 Unit(s) Injection TID 07/13/19 23 023 Inactive ketorolac 0.5 % eye drops RxNorm: 613879 Instill 1 Drop(s) as directed QID Instill 1 drop into affected eye(s) 4 times daily starting 1 day prior to surgery and continue until gone (do not exceed 4 weeks). 07/13/19 23 023 Inactive Diflucan 150 mg tablet RxNorm: 703523 Take 1 Tablet(s) Oral QD repeat on day 3 and 6 06/30/19 23 023 Inactive Accu-Chek Guide test strips RxNorm: Use 1 Test Strip QID Use 1 test strip to monitor blood glucose 4 times daily and as needed. Dx:E11.42. 06/23/19 23 023 Inactive ok to substitute with any covered alternative test strip dextromethorphan-gu aifenesin 10 mg-100 mg/5 mL oral liquid RxNorm: 135606 Take 10 Milliliter(s) Oral every 4 hours as needed for cough 06/19/19 23 023 Inactive dextromethorphan-gu aifenesin 10 mg-100 mg/5 mL oral liquid RxNorm: 177504 Take 10 Milliliter(s) Oral every 4 hours as needed for cough 06/19/19 023 Inactive Lyrica 150 mg capsule RxNorm: 942261 Take 1 Capsule(s) Oral QHS every night at bedtime 06/18/19 023 Inactive d/c 100mg dose aripiprazole 15 mg tablet RxNorm: 089874 /2 TAB (7.5MG) ORALLY DAILY (DX:MAJOR DEPRESSIVE DISORDER) 06/05/19 023 Inactive pregabalin 100 mg capsule RxNorm: 943150 1 Capsule(s) Oral QAM every morning 06/02/19 023 Inactive Banophen 50 mg capsule RxNorm: 3707162 Take 1 Capsule(s) Oral Q6H every 6 hours as needed 05/19/19 No Stop Date Active Novolog Flexpen U-100 Insulin aspart 100 unit/mL (3 mL) subcutaneous RxNorm: 8925686 Inject 10 Unit(s) Subcutaneous QHS every night at bedtime with nighttime snack 04/08/20 022 Inactive Novolog Flexpen U-100 Insulin aspart 100 unit/mL (3 mL) subcutaneous RxNorm: 7253548 Inject 42 Unit(s) Subcutaneous TID in addition to sliding scale 04/08/20 022 Inactive d/c 36u albuterol sulfate HFA 90 mcg/actuation aerosol inhaler RxNorm: 1635204 Take 2 Puff(s) Inhalation Q4H every four hours as needed as needed for SOB, cough, or wheezing 04/07/20 030 Active Banophen 50 mg capsule RxNorm: 6917571 Take 1 Capsule(s) Oral Q6H every 6 hours as needed 04/06/20 023 Inactive diphenhydramine 50 mg tablet RxNorm: 6491176 Take 1 Tablet(s) Oral Q6H every 6 hours as needed 04/06/20 022 Inactive diphenhydramine 50 mg tablet RxNorm: 6054358 1 Tablet(s) Oral Q6H every 6 hours as needed 04/06/20 22 022 Inactive Abilify 15 mg tablet RxNorm: 272761 1/2 Tablet(s) Oral QD 03/10/20 22 023 Inactive Shingrix (PF) 50 mcg/0.5 mL intramuscular suspension, kit RxNorm: 5004307 Administer 1/2 Milliliter(s) Intramuscular QD one time shingrix step 2 ( step 1 given 11/04/21) WITH needle - Nursing please administer upon arrival and once administered post a bridge message 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, 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, 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, and lot# so we can update [facility] 02/18/20 22 022 Inactive dispense with needle Shingrix (PF) 50 mcg/0.5 mL intramuscular suspension, kit RxNorm: 8142731 Administer 1/2 Milliliter(s) Intramuscular QD one time shingrix step 2 ( step 1 given 11/04/21) WITH needle - Nursing please administer upon arrival and once administered post a bridge message with 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, 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, expiration date, and lot# so we can update [facility] 02/18/20 22 022 Inactive dispense with needle polyethylene glycol 3350 17 gram/dose oral powder RxNorm: 627871 Take 17=1 capful Gram(s) Oral QD mix with 4-8oz of liquid 01/08/20 22 023 Inactive take this in addition to BID prn order Lyrica 100 mg capsule RxNorm: 501979 Take 1 Capsule(s) Oral QAM every morning 01/08/20 22 022 Inactive d/c 50mg dose acetaminophen 500 mg tablet RxNorm: 900237 Take 1 Tablet(s) Oral TID 01/08/20 22 022 Inactive d/c PRN order Lyrica 150 mg capsule RxNorm: 018035 Take 1 Capsule(s) Oral QHS every night at bedtime 01/08/20 22 023 Inactive d/c 100mg dose Abilify 5 mg tablet RxNorm: 518145 Take 1 Tablet(s) Oral QD take 1 tab po QD #30 refill 5 dx: MDD 12/12/19 22 022 Inactive Abilify 5 mg tablet RxNorm: 455912 Take 1 Tablet(s) Oral QD take 1 tab po QD #30 refill 5 dx: MDD 12/12/19 22 022 Inactive Novolog Flexpen U-100 Insulin aspart 100 unit/mL (3 mL) subcutaneous RxNorm: 3482521 Inject 42 Unit(s) Subcutaneous TID in addition to sliding scale 12/10/19 22 022 Inactive d/c 36u chlorthalidone 25 mg tablet RxNorm: 201609 Take 1 Tablet(s) Oral QAM every morning 12/10/19 22 023 Inactive pregabalin 50 mg capsule RxNorm: 385011 Take 1 Capsule(s) Oral QAM every morning 11/12/19 22 022 Inactive tetanus-diphtheria toxoids-Td 2 Lf unit-2 Lf unit/0.5 mL IM suspension RxNorm: 139 Take 0.5 Miscellaneous Intramuscular 11/12/19 22 022 Inactive need tdap - nursing to administer upon arrival pregabalin 50 mg capsule RxNorm: 460124 Take 1 Capsule(s) Oral QAM every morning 10/16/19 022 Inactive pregabalin 50 mg capsule RxNorm: 443038 Take 1 Capsule(s) Oral QAM every morning 10/16/19 22 022 Inactive pregabalin 50 mg capsule RxNorm: 361354 1 Capsule(s) Oral QAM every morning 10/15/19 22 022 Inactive Shingrix (PF) 50 mcg/0.5 mL intramuscular suspension, kit RxNorm: 1985964 Administer 1/2 Milliliter(s) Intramuscular one time Nursing please administer upon arrival and once administered post a bridge message 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 10/09/19 22 022 Inactive shingrix step 1 cholecalciferol (vitamin D3) 1,250 mcg (50,000 unit) capsule RxNorm: 648469 Take 1 Capsule(s) Oral QW once a [...] aspart 100 unit/mL (3 mL) subcutaneous RxNorm: 3400219 Inject 10 Unit(s) Subcutaneous QHS every night at bedtime with nighttime snack 10/08/19 22 Inactive Shingrix (PF) 50 mcg/0.5 mL intramuscular suspension, kit RxNorm: 5600010 ADMINISTER 2-DOSE SERIES PER CDC GUIDELINES 10/08/19 22 Active Shingrix (PF) 50 mcg/0.5 mL intramuscular suspension, kit RxNorm: 1021795 ADMINISTER 2-DOSE SERIES PER CDC GUIDELINES 10/08/19 22 Inactive Novolog Flexpen U-100 Insulin aspart 100 unit/mL (3 mL) subcutaneous RxNorm: 3564059 Inject 36 Unit(s) Subcutaneous TID in addition to sliding scale 10/08/19 22 Inactive Novofine Autocover 30 gauge x 1/3 needle RxNorm: Use 1 Miscellaneous UD as directed Use 1 needle as directed to administer insulin 5 times a day Dx:E11.42. 10/03/19 22 Inactive ok to substitute with any covered alternative pen needle benzoyl peroxide 10 % topical cleanser RxNorm: 329290 Apply 1 Application Topical QD apply to face, wash rinse and dry once daily (may change to QOD if drying) 08/19/19 22 Inactive (%covered by insurance) #60ml refill 11 dx: acne benzoyl peroxide 10 % topical cleanser RxNorm: 494315 Apply 1 Application Topical QD apply to face, wash rinse and dry once daily (may change to QOD if drying) 08/19/19 22 022 Inactive (%covered by insurance) #60ml refill 11 dx: acne benzoyl peroxide 10 % topical cleanser RxNorm: 725145 Apply 1 Application Topical QD apply to face, wash rinse and dry once daily (may change to QOD if drying) 08/19/19 22 022 Inactive (%covered by insurance) #60ml refill 11 dx: acne Lyrica 50 mg capsule RxNorm: 540762 Take 1 Capsule(s) Oral QAM every morning Take 1 capsule by mouth once daily 08/19/19 22 022 Inactive benzoyl peroxide 10 % topical cleanser RxNorm: 060248 Apply 1 Application Topical QD apply to face, wash rinse and dry once daily (may change to QOD if drying) 08/19/19 22 022 Inactive (%covered by insurance) #60ml refill 11 dx: acne Lyrica 100 mg capsule RxNorm: 370710 Take 1 Capsule(s) Oral QHS every night at bedtime Take 1 capsule by mouth once daily at bedtime 08/19/19 22 022 Inactive Lyrica 100 mg capsule RxNorm: 337682 Take 1 Capsule(s) Oral QHS every night at bedtime Take 1 capsule by mouth once daily at bedtime 08/16/19 Inactive Lyrica 50 mg capsule RxNorm: 144335 Take 1 Capsule(s) Oral QAM every morning Take 1 capsule by mouth once daily 08/16/19 22 Inactive Levemir FlexTouch U-100 Insulin 100 unit/mL (3 mL) subcutaneous pen RxNorm: 772621 Inject 86 Unit(s) Subcutaneous BID 08/05/19 22 022 Inactive d/c 83units BID Lyrica 100 mg capsule RxNorm: 339302 Take 1 Capsule(s) Oral QHS every night at bedtime Take 1 capsule by mouth once daily at bedtime 07/14/19 22 022 Inactive Lyrica 50 mg capsule RxNorm: 608616 Take 1 Capsule(s) Oral QAM every morning Take 1 capsule by mouth once daily 07/14/19 Inactive Levemir FlexTouch U-100 Insulin 100 unit/mL (3 mL) subcutaneous pen RxNorm: 448679 Inject 83 Unit(s) Subcutaneous BID 07/08/19 22 [...] 30 mg tablet,extended release 24 hr RxNorm: 764191 Take 1 Tablet(s) Oral QD 05/05/20 No Stop Date Active hydralazine 50 mg tablet RxNorm: 737168 Take 1 Tablet(s) Oral QID 05/05/20 Inactive venlafaxine ER 225 mg tablet,extended release 24 hr RxNorm: 808195 Take 1 Tablet(s) Oral QD 05/05/20 Inactive venlafaxine ER 225 mg tablet,extended release 24 hr RxNorm: 248489 Take 1 Tablet(s) Oral QD 05/05/20 022 Inactive hydralazine 50 mg tablet RxNorm: 371834 Take 1 Tablet(s) Oral QID 05/05/20 Inactive aspirin 81 mg tablet,delayed release RxNorm: 045926 Take 1 Tablet(s) Oral QD 03/31/20 Inactive Zetia 10 mg tablet RxNorm: 652231 Take 1 Tablet(s) Oral QD 03/31/20 Inactive Vitamin D2 1,250 mcg (50,000 unit) capsule RxNorm: 0252765 Take 1 Capsule(s) Oral QW once a week x 12 weeks 03/31/20 Inactive Vitamin D2 1,250 mcg (50,000 unit) capsule RxNorm: 3793758 Take 1 Capsule(s) Oral QW once a week 03/31/20 Inactive Zetia 10 mg tablet RxNorm: 307383 Take 1 Tablet(s) Oral QD 03/31/20 Inactive hydralazine 25 mg tablet RxNorm: 336937 Take 1 Tablet(s) Oral QID 03/31/20 Inactive hydralazine 25 mg tablet RxNorm: 078552 Take 1 Tablet(s) Oral QID 03/31/20 Inactive hydralazine 10 mg tablet RxNorm: 929126 Take 1 Tablet(s) Oral QID 03/03/20 Inactive cephalexin 500 mg tablet RxNorm: 096752 Take 1 Tablet(s) Oral QID 02/27/20 Inactive cephalexin 500 mg tablet RxNorm: 236402 Take 1 Tablet(s) Oral QID 10/13/20 21 10/13/2 021 Inactive lisinopril 40 mg tablet RxNorm: 737835 Take 1 Tablet(s) Oral QD 02/11/20 023 Inactive Eliquis 5 mg tablet RxNorm: 3816057 Take 1 Tablet(s) Oral BID 01/05/20 21 022 Inactive Eliquis 5 mg tablet RxNorm: 6735961 Take 2 Tablet(s) Oral QD 01/01/20 21 021 Inactive Lyrica 50 mg capsule RxNorm: 669974 Take 1 Capsule(s) Oral QAM every morning 12/24/19 021 Inactive Lyrica 100 mg capsule RxNorm: 071992 Take 1 Capsule(s) Oral QHS every night at bedtime 12/24/19 021 Inactive clotrimazole 1 % topical cream RxNorm: 426916 Apply to right foot and toes Topical BID 12/04/19 21 023 Inactive metoprolol succinate ER 200 mg tablet,extended release 24 hr RxNorm: 797956 Take 1 Tablet(s) Oral QD 12/04/19 023 Inactive ciprofloxacin 500 mg tablet RxNorm: 907824 Take 1 Tablet(s) Oral QD 11/30/19 021 Inactive DX ofloxacin otic drops Accu-Chek Guide test strips RxNorm: USE 1 TO CHECK GLUCOSE 4 TIMES DAILY AND NEEDED 11/15/19 21 023 Inactive Blood Glucose Test strips RxNorm: Use 1 Test Strip QID at PRN 11/05/19 21 023 Inactive E11.42 lisinopril 30 mg tablet RxNorm: 647167 Take 1 Tablet(s) Oral QD 10/30/19 021 Inactive lisinopril 20 mg tablet RxNorm: 713908 Take 1 Tablet(s) Oral QD 10/23/19 021 Inactive lisinopril 20 mg tablet RxNorm: 206358 Take 1 Tablet(s) Oral QD 10/23/19 21 021 Inactive lisinopril 10 mg tablet RxNorm: 849341 Take 1 Tablet(s) Oral QD 10/02/19 21 021 Inactive icosapent ethyl 1 gram capsule RxNorm: 5440795 Take 2 Capsule(s) (2 gm) Oral BID with meals 09/12/19 Inactive Okay to dispense one 2gm tab if you have that available. icosapent ethyl 1 gram capsule RxNorm: 1276757 Take 2 Capsule(s) Oral BID 09/12/19 Inactive Okay to dispense one 2gm tab if you have that available. amlodipine 10 mg tablet RxNorm: 297463 Take 1 Tablet(s) Oral QD 09/04/19 022 Inactive aspirin 81 mg tablet,delayed release RxNorm: 651811 Take 1 Tablet(s) Oral QD 09/04/19 Inactive Levemir FlexTouch U-100 Insulin 100 unit/mL (3 mL) subcutaneous pen RxNorm: 492303 Inject 150 Unit(s) Subcutaneous BID 09/04/19 Inactive venlafaxine ER 150 mg tablet,extended release 24 hr RxNorm: 980317 Take 1 Tablet(s) Oral QD 09/04/19 Inactive clotrimazole-betame thasone 1 %-0.05 % topical cream RxNorm: 527309 Apply to rash on red area on left abdomen/chest Topical BID 08/10/19 21 Inactive amlodipine 5 mg tablet RxNorm: 756936 Take 1 Tablet(s) Oral QD 07/31/19 Inactive cephalexin 500 mg tablet RxNorm: 919590 Take 1 Tablet(s) Oral BID BID - Twice Daily 07/31/19 021 Inactive Start 08/01/20 pantoprazole 40 mg tablet,delayed release RxNorm: 937786 Take 1 Tablet(s) Oral QAM every morning 07/08/19 022 Inactive senna 8.6 mg tablet RxNorm: 433885 Take 1 Tablet(s) Oral QD 07/08/19 022 Inactive pravastatin 80 mg tablet RxNorm: 283801 Take 1 Tablet(s) Oral QHS every night at bedtime 07/08/19 21 Inactive carbamazepine 200 mg tablet RxNorm: 657160 Take 1 Tablet(s) Oral BID 07/08/19 Inactive clopidogrel 75 mg tablet RxNorm: 752301 Take 1 Tablet(s) Oral QD 07/08/19 21 021 Inactive Blood Glucose Test strips RxNorm: Use 1 Test Strip QID at PRN 07/08/19 21 Inactive E11.42 Novolog Flexpen U-100 Insulin aspart 100 unit/mL (3 mL) subcutaneous RxNorm: 3434243 Administer per sliding scale Milliliter(s) Subcutaneous TID 151-200: 10 u; 201-250: 20 u; 251-300: 30 u; 301-350: 40 u; 351-400: 50 u. 07/08/19 21 022 Inactive lisinopril 5 mg tablet RxNorm: 050894 Take 1 Tablet(s) Oral QD 07/08/19 021 Inactive Novolog Flexpen U-100 Insulin aspart 100 unit/mL (3 mL) subcutaneous RxNorm: 3689061 Inject 85 Unit(s) Subcutaneous TID 07/08/19 Inactive clotrimazole 1 % topical cream RxNorm: 059686 Apply to bilateral groin areas Topical BID 07/08/19 21 Inactive metoprolol succinate ER 200 mg tablet,extended release 24 hr RxNorm: 624351 Take 1 Tablet(s) Oral QD 07/08/19 Inactive Vitamin D3 25 mcg (1,000 unit) tablet RxNorm: 108795 Take 1 Tablet(s) Oral QD 07/08/19 021 Inactive isosorbide dinitrate 30 mg tablet RxNorm: 040685 Take 1 Tablet(s) Oral QD 07/08/19 021 Inactive Levemir FlexTouch U-100 Insulin 100 unit/mL (3 mL) subcutaneous pen RxNorm: 313865 Inject 140 Unit(s) Subcutaneous BID 07/08/19 21 021 Inactive torsemide 20 mg tablet RxNorm: 688264 Take 1 Tablet(s) Oral QD 07/08/19 21 023 Inactive venlafaxine 75 mg tablet RxNorm: 193816 Take 1 Tablet(s) Oral QD 07/08/19 21 021 Inactive acetaminophen 500 mg tablet RxNorm: 892276 Take 1 Tablet(s) Oral TID as needed for headache 06/18/19 21 021 Inactive acetaminophen 500 mg tablet RxNorm: 268070 Take 1 Tablet(s) Oral TID as needed for headache 06/18/19 21 021 Inactive Lyrica 100 mg capsule RxNorm: 238307 Take 1 Capsule(s) Oral QHS every night at bedtime 06/11/19 21 021 Inactive Lyrica 50 mg capsule RxNorm: 601371 Take 1 Capsule(s) Oral QAM every morning 06/10/19 21 021 Inactive hydrocortisone 2.5 % topical cream RxNorm: 296868 Apply to bilateral groin creases Topical BID 05/15/20 20 021 Inactive clotrimazole 1 % topical cream RxNorm: 063241 Apply to bilateral groin areas Topical BID 05/15/20 20 021 Inactive Lyrica 50 mg capsule RxNorm: 161147 Take 1 Capsule(s) Oral QAM every morning 05/14/20 20 020 Inactive Lyrica 100 mg capsule RxNorm: 721677 Take 1 Capsule(s) Oral QHS every night [...] Inactive Nystop 100,000 unit/gram topical powder RxNorm: 289156 Apply to abd folds, under breasts and L side of groin Topical BID x 14 days, then BID PRN 04/08/20 20 Inactive dx: yeast dermatitis Lyrica 100 mg capsule RxNorm: 918362 Take 1 Capsule(s) Oral QHS every night at bedtime 03/13/20 20 Inactive Lyrica 50 mg capsule RxNorm: 133840 Take 1 Capsule(s) Oral QAM every morning 03/13/20 Inactive ketoconazole 2 % shampoo RxNorm: 952243 Apply Topical two times a week with showers 03/11/20 20 Inactive cholecalciferol (vitamin D3) 50 mcg (2,000 unit) tablet RxNorm: 823067 Take 1 Tablet(s) Oral QD 03/11/20 20 Inactive Zetia 10 mg tablet RxNorm: 952694 Take 1 Tablet(s) Oral QD 03/07/20 20 021 Inactive Zetia 10 mg tablet RxNorm: 688159 Take 1 Tablet(s) Oral QD 03/07/20 20 Inactive Lyrica 50 mg capsule RxNorm: 880329 Take 1 Capsule(s) Oral QAM every morning 02/15/20 20 Inactive Lyrica 100 mg capsule RxNorm: 374061 Take 1 Capsule(s) Oral QHS every night at bedtime 02/15/20 20 Inactive Lyrica 100 mg capsule RxNorm: 125509 Take 1 Capsule(s) Oral QHS every night at bedtime 02/15/20 Inactive Lyrica 50 mg capsule RxNorm: 268706 Take 1 Capsule(s) Oral QAM every morning 02/15/20 20 Inactive polyethylene glycol 3350 17 gram/dose oral powder RxNorm: 230361 Take 17=1 capful Gram(s) Oral BID as needed mix with 4-8oz of liquid 06/12/19 Active metoprolol succinate ER 200 mg tablet,extended release 24 hr RxNorm: 741144 Take 1 Tablet(s) Oral QD 08/12/19 Active loperamide 2 mg capsule RxNorm: 802052 Take 1 Capsule(s) Oral QID as needed 06/12/19 Active hydralazine 50 mg tablet RxNorm: 021895 Take 1 Tablet(s) Oral QID 08/12/19 23 Active venlafaxine ER 75 mg capsule,extended release 24 hr RxNorm: 252676 Take 3 Capsule(s) Oral QD 06/12/19 22 023 Inactive icosapent ethyl 1 gram capsule RxNorm: 2089920 Take 2 Capsule(s) (2 gm) Oral BID with meals 10/07/19 023 Inactive Okay to dispense one 2gm tab if you have that available. Levemir FlexTouch U-100 Insulin 100 unit/mL (3 mL) subcutaneous pen RxNorm: 638078 Inject 80 Unit(s) Subcutaneous BID 07/14/19 23 023 Inactive Novolog Flexpen U-100 Insulin aspart 100 unit/mL (3 mL) subcutaneous RxNorm: 5604026 Insert 30 Unit(s) Subcutaneous TID with meals [...] Status Date Referral: Kidney [facility] WPtel: [address], [address] [id number] [place] Referral Records Received 09/21/2022 Referral: [facility] WPtel: [address] [id number] [place] Referral Completed 05/28/2021 Referral: General Cardiology Referral Complet ed 01/03/2021 Referral: General Psychologist Referral Close d Instructions Comment Date Leonid is a?? Male being seen living at [facility]. Initial BPS visit 01/2020. PMHx including DMII, CAD w/ 5 stents, Depression, Seizure Disorder and CKD stage 3. He moved into [facility] in 12/2019 but after a hospitalization 05/2021 he moved to the [facility] to have closer nursing attention.??Sister Jyotsna involved in his care cell# [phone]??Guardian: Don (tapan met in person 09/01/21), now has Lexii (same group as don)Lab Schedule: * 02/08/2023
== END 2023-02-13 20:46 | disposition home or self-care (01) ==
LOC: AMB 02-18 17:44
PROVIDERS: Visit Provider Internal Medicine
DX: R07.89 Other chest pain (principal)
CPT/HCPCS: A0425; A0427

== ENCOUNTER 2023-02-22 14:20 | Outpatient (CLI) | payer MEDICARE, MEDICAID, SELFPAY | END 2023-02-22 14:21 | disposition home or self-care (01) | LOC: AMB 02-24 18:32 | PROVIDERS: Visit Provider Emergency Medicine Emergency Medical Services | DX: R42 Dizziness and giddiness (principal); R10.9 Unspecified abdominal pain; R73.9 Hyperglycemia, unspecified | CPT/HCPCS: A0425; A0427 ==

== ENCOUNTER 2023-04-01 06:27 | Outpatient (CLI) | payer MEDICARE, MEDICAID, SELFPAY | END 2023-04-01 06:28 | disposition home or self-care (01) | LOC: AMB 04-09 16:07 | PROVIDERS: Visit Provider Emergency Medicine Emergency Medical Services | DX: R06.09 Other forms of dyspnea (principal) | CPT/HCPCS: A0425; A0427 ==

== ENCOUNTER 2023-04-01 07:05 | Emergency (ER) | payer MEDICARE, MEDICAID, SELFPAY ==
[2023-04-01] VITALS (14 sets, daily range): BP systolic 140–173; BP diastolic 43–82; PULSE 82–88; RESP 16; TEMP 37.1; O2SAT 92–94
--- NOTE | 2023-04-01 08:02 | ED_ITS ---
HPI - SOB/Dyspnea General Time Seen by Provider: 08:02 Date Seen: 04/01/23 Chief Complaint: Shortness of Breath/Dyspnea Stated Complaint: shortness of breath Time Seen by Provider: 04/01/23 08:02 Source: patient, RN notes reviewed and old records reviewed Mode of arrival: EMS Limitations: no limitations History of Present Illness HPI Narrative: Leonid is a 62-year-old gentleman currently a resident of the [facility] in [place] with a history of insulin-dependent diabetes, DVT on Eliquis, coronary artery disease, chronic kidney disease who comes to the emergency room for evaluation of shortness of breath. Patient notes that shortness of breath started a few days ago and is worse at night. He cannot say if he has noticed any increasing lower extremity edema but does complain about a rash on the back of both of his thighs. He endorses chest pain at night. He shows this to be the substernal aspect of his chest. It does not radiate nor is it present at this particular time. He denies a cough but does note that he has had a runny nose. He denies a sore throat, fever chills or recent exposure to illness. Denies increased discomfort with deep breathing. Patient noted to have been presented to [place] ER in the past for what was chest pain noncardiac in nature. Patient is reportedly known to have recent stress test that was reassuring. I do not have access to those records. Patient is wondering what the discoloration on his legs may be from. He is stating that he would like I urinal at this time. Related Data Home Medications Medication Instructions Recorded Confirmed amlodipine 10 mg tablet 10 mg PO DAILY 03/07/22 07/24/22 apixaban 5 mg tablet (Eliquis) 5 mg PO BID 03/07/22 07/24/22 aripiprazole 15 mg tablet 7.5 mg PO DAILY 03/07/22 07/24/22 aspirin 81 mg tablet,delayed 81 mg PO DAILY 03/07/22 07/24/22 release carbamazepine 200 mg tablet 200 mg PO BID 03/07/22 07/24/22 chlorthalidone 25 mg tablet 25 mg PO DAILY 03/07/22 07/24/22 ezetimibe 10 mg tablet 10 mg PO DAILY 03/07/22 07/24/22 hydralazine 50 mg tablet 50 mg PO QID 03/07/22 07/24/22 isosorbide mononitrate 30 mg 30 mg PO DAILY 03/07/22 07/24/22 tablet,extended release 24 hr pantoprazole 40 mg tablet,delayed 40 mg PO DAILY 03/07/22 07/24/22 release polyethylene glycol 3350 17 17 g PO DAILY 03/07/22 07/25/22 gram/dose oral powder pravastatin 80 mg tablet 80 mg PO HS 03/07/22 07/24/22 pregabalin 100 mg capsule 100 mg PO QAM 03/07/22 07/24/22 pregabalin 150 mg capsule 150 mg PO HS 03/07/22 07/24/22 torsemide 20 mg tablet 20 mg PO DAILY 03/07/22 07/24/22 venlafaxine 75 mg capsule,extended 225 mg PO DAILY 03/07/22 07/24/22 release 24 hr acetaminophen 500 mg tablet 500 mg PO Q6H 06/13/22 07/24/22 albuterol sulfate 90 mcg/actuation 1 inh inhalation Q4H PRN 06/13/22 07/24/22 aerosol inhaler bronchospasm diphenhydramine HCl 50 mg capsule 50 mg PO Q6H PRN itching 06/13/22 07/24/22 (Banophen) icosapent ethyl 1 gram capsule 2 g PO BID 06/13/22 07/24/22 (Vascepa) insulin regular hum U-500 conc 500 85 unit subcut TID 06/13/22 07/24/22 unit/mL(3 mL) subcut pen (Humulin R U-500 (Conc) Insulin Kwikpen) ketoconazole 2 % shampoo 1 applic topical Q3D 06/13/22 07/24/22 loperamide 2 mg capsule 2 mg PO Q6H PRN loose stool 06/13/22 07/24/22 nystatin 100,000 unit/gram topical 1 applic topical BID PRN 06/13/22 07/24/22 powder sennosides 8.6 mg tablet (senna) 8.6 mg PO DAILY 06/13/22 07/24/22 clotrimazole 1 % topical cream 1 applic topical BID 07/25/22 07/25/22 ergocalciferol (vitamin D2) 1,250 50,000 unit PO WE@09 07/25/2223 mcg (50,000 unit) capsule fluconazole 150 mg tablet 150 mg PO TUFR@09 07/25/22 07/25/22 gatifloxacin 0.5 % eye drops 1 drp ophthalmic (eye) QID 07/25/22 07/25/22 ketorolac 0.5 % eye drops 1 drp ophthalmic (eye) QID 07/25/22 07/25/22 prednisolone acetate 1 % eye 1 drp ophthalmic (eye) QID 07/25/22 07/25/22 drops,suspension Previous Rx's Medication Instructions Recorded amoxicillin 875 mg-potassium 1 tab PO BID 7 days #14 tabs 07/26/22 clavulanate 125 mg tablet carvedilol 25 mg tablet 25 mg PO Q12H 30 days #60 tabs 07/26/22 lisinopril 20 mg tablet 20 mg PO DAILY 30 days #60 tabs 07/26/22 cephalexin 500 mg capsule 500 mg PO TID 10 days #30 caps 09/14/22 hydrocortisone 2.5 % topical cream 1 applic topical BID PRN #30 grams 09/14/22 nystatin 100,000 unit/gram topical 1 applic topical BID #30 grams 09/14/22 powder potassium chloride 20 mEq oral 20 meq PO DAILY 3 days #3 ea 10/19/22 packet potassium chloride 20 mEq 20 meq PO DAILY #10 tabs 12/08/22 tablet,extended release ammonium lactate 12 % lotion 1 applic topical BID #225 grams 04/01/23 amoxicillin 875 mg-potassium 1 tab PO BID #13 tabs 04/01/23 clavulanate 125 mg tablet azithromycin 250 mg tablet 250 mg PO DAILY 4 days #4 tabs 04/01/23 (Zithromax) Allergies Allergy/AdvReac Type Severity Reaction Status Date / Time lisinopril AdvReac Verified 12/13/22 18:33 metformin AdvReac Verified 12/13/22 18:33 Review of Systems Status of ROS: Reports: 10 or more systems reviewed and unremarkable except as noted in History and below Const: Denies: fever or chills Eyes: Denies: change in vision ENMT: Reports: nasal discharge (Describes runny nose); Denies: neck pain, throat swelling, difficulty swallowing or hoarseness Cardio: Reports: chest pain (Intermittent and not present at this time) and shortness of breath with exertion; Denies: swelling of feet/ankles Resp: Reports: shortness of breath; Denies: cough or wheezing GI: Denies: abdominal pain, nausea, vomiting, diarrhea or difficulty swallowing : Denies: painful urination or urinary frequency Musculo: Denies: back pain, neck pain, extremity pain or extremity swelling Integ/Breast: Denies: rash Neuro: Denies: headache or numbness in extremities Allergy/Immuno: Denies: throat swelling or wheezing [facility] Medical History Insulin dependent diabetes mellitus Recurrent deep vein thrombosis (DVT) ?I82.409 - Acute embolism and thrombosis of unspecified deep veins of un specified lower extremity (ICD-10) Hypertension ?I10 - Essential (primary) hypertension (ICD-10) Coronary artery disease ?I25.10 - Atherosclerotic heart disease of [place] coronary artery without ang dustin pectoris (ICD-10) Hypertriglyceridemia ?E78.1 - Pure hyperglyceridemia (ICD-10) Epilepsy ?G40.909 - Epilepsy, unspecified, not intractable, without status epilepticus (ICD-10) TASHI on CPAP ?G47.33 - Obstructive sleep apnea (adult) (pediatric) (ICD-10) ?Z99.89 - Dependence on other enabling machines and devices (ICD-10) Tachypnea ?R06.82 - Tachypnea, not elsewhere classified (ICD-10) Fever ?R50.9 - Fever, unspecified (ICD-10) CKD (chronic kidney disease) ?N18.9 - Chronic kidney disease, unspecified (ICD-10) Gout ?M10.9 - Gout, unspecified (ICD-10) Major depressive disorder ?F32.9 - Major depressive disorder, single episode, unspecified (ICD-10) Type 2 diabetes mellitus ?E11.9 - Type 2 diabetes mellitus without complications (ICD-10) Obesity ?E66.9 - Obesity, unspecified (ICD-10) Surgical History History of cholecystectomy ?Z90.49 - Acquired absence of other specified parts of digestive tract (ICD- 10) Social History Narrative: Lives in a assisted in [place], [place]. Sisters Brittany Suggs ([phone]) and Blanka Mcduffie ([phone]) listed as contacts and medical decision makers. Paperwork from assisted indicates Full Code status. Highest level of school completed/degree received: 12th grade, no diploma Smoking Status: Never smoker Do you use any of these nicotine containing products: None Second hand tobacco smoke exposure: No How often do you have a drink containing alcohol: never How often do you have six or more drinks on one occasion: Never AUDIT-C Alcohol total score: 0 Non-prescribed substance use: denies use Caffeine: No service: No Exam Narrative: Exam Narrative: Alert and oriented. Nontoxic in appearance. No obvious coughing wheezing or respiratory distress when I walk in the room. Speaking in complete sentences. External ears eyes nose clear. No cervical lymphadenopathy. Oral cavity with moist mucous membranes. Heart with a regular rate and rhythm. Lungs are with distant breath sounds but appear to be clear bilaterally. Abdomen is obese soft. Patient complains of some mild tenderness in the epigastrium and on the left side of his abdomen. However re-examination does not reproduce these complaints. Lower extremities do have compression stockings. Moving the stockings we do see that there are skin changes consistent with venous stasis. No evidence of erythema. There is no excessive lower extremity edema. Const: Vital Signs, click to edit/add: Vital Signs - 24 hr 04/01/23 07:15 04/01/23 08:36 04/01/23 08:37 Temperature 98.8 F Pulse Rate 83 84 Pulse Rate [Pulse Oximeter] 82 Respiratory Rate 16 Blood Pressure 142/43 H Blood Pressure [Ri ght Upper Arm] 173/66 H Pulse Oximetry 94 94 94 Oxygen Delivery Me thod Room Air Course Course ED Course: At this time Leonid presents with shortness of breath, no obvious respiratory distress, intermittent chest pain in the setting of previously known coronary artery disease elevated triglycerides on Eliquis but recent reassuring stress test. At this time will swab for COVID/RSV/influenza as well as do coronary rule out with EKG and troponin x2, CBC, proBNP, comprehensive panel and urinalysis. Differential diagnosis includes but is not limited to angina, acute coronary event, congestive heart failure, anxiety, esophagitis, pneumonia, URI, COVID. At this time PE is not in my differential due to normal pulse, reassuring oxygen levels and patient is currently on Eliquis. Reevaluation(s) Reevaluation #1: I informed the patient that his chest x-ray showed possible infection and that we would need to repeat an x-ray and thus heater does tell me he is able to stand and we will send him to Radiology to get a two view. Did inform patient that his 1st EKG and troponin were reassuring and that his viral swab was also negative. Reevaluation #2: Chest x-ray does show possible infiltrates in the bilateral lower lungs. Again, patient is negative for COVID influenza and RSV. White count reassuring as well. Will give initial dose of Augmentin 875 mg and Zithromax 500 mg for community-acquired pneumonia. Oximetry appropriate. Second EKG and troponin pending. ProBNP within normal limits. I reviewed epic chart extensively and was able to find a stress test from December 16 when patient presented to [facility]. At that time there was a small area of ischemia that cardiology felt medical management would be appropriate. Patient did have his Imdur increased at that time. It is noted that throughout the chart patient has had chest discomfort since stent placement in 2019. No further evidence of known acute coronary syndrome since that time although I do note multiple visits to both [place] and [facility] for chest pain complaints. I reviewed visits from February 22 at [facility] for dizziness, February 13 for chest pain at [facility] and December 16 chest pain complaints. I do note that there was a suggestion for Cardiology follow-up and I do not see that has been done. Vital Signs Vital signs: Initial Vital Signs Temperature 98.8 F 04/01/23 07:15 Temperature Source Temporal Artery Scan 04/01/23 07:15 Pulse Rate 82 04/01/23 07:15 Respiratory Rate 16 04/01/23 07:15 Blood Pressure 173/66 H 04/01/23 07:15 Blood Pressure Mean 101 04/01/23 07:15 Blood Pressure Position Sitting 04/01/23 07:15 Pulse Oximetry 94 04/01/23 07:15 Oxygen Delivery Method Room Air 04/01/23 07:15 Vital Signs Temperature 98.8 F 04/01/23 07:15 Pulse Rate 82 04/01/23 07:15 Respiratory Rate 16 04/01/23 07:15 Blood Pressure 173/66 H 04/01/23 07:15 Pulse Oximetry 94 04/01/23 07:15 Oxygen Delivery Method Room Air 04/01/23 07:15 Temperature 98.8 F 04/01/23 07:15 Pulse Rate 84 04/01/23 08:37 Respiratory Rate 16 04/01/23 07:15 Blood Pressure 142/43 H 04/01/23 08:36 Pulse Oximetry 94 04/01/23 08:37 Oxygen Delivery Method Room Air 04/01/23 07:15 Medications Administered Medications: Discontinued Medications Generic Name Dose Route Start Last Admin Trade Name Kongq PRN Reason Stop Dose Admin Amoxicillin/Clavulanate Potassium 875 mg 04/01/23 09:43 04/01/23 09:55 Amoxicillin/Clavulanate 875 Mg/125 Mg Tablet PO 04/01/23 09:44 875 mg ONCE ONE Administration Azithromycin 500 mg 04/01/23 09:43 04/01/23 09:55 Azithromycin 250 Mg Tablet PO 04/01/23 09:44 500 mg ONCE ONE Administration Insulin Human Regular 10 unit 04/01/23 09:51 04/01/23 10:11 Insulin Regular 100 Unit/Ml Inj SUBCUT 04/01/23 09:52 10 unit ONCE ONE Administration MDM - SOB/Dyspnea MDM Narrative Medical decision making narrative: 1. Lower respiratory infection-infiltrates noted on chest x-ray. White count within normal limits. Patient is with normal oximetry at this time. Initial treatment with Augmentin 875 p.o. and Zithromax 500 mg p.o. in the ED. Further prescription sent to pharmacy for 7 day treatment of Augmentin and 5 day total treatment of Zithromax. 2. Chest pain -no evidence of acute coronary syndrome with EKGs that are reassuring and 2 sets of negative cardiac enzymes. Further, proBNP negative so there is no indication of congestive heart failure at this time. No evidence of widened mediastinum on x-ray. Patient has been pain-free since he has been in the emergency room. His stress test from December 16 did show an area of ischemia but cardiology felt that this was best medically managed and increase his Imdur at that time. Of note however he did not follow-up with Cardiology as it was suggested in his discharge summary from that visit at [facility]. 3. Skin irritation-back of both legs. It appears to be kind of an excoriated type pattern. Would suggest lotions such as Amlactin twice a day. This is been called to pharmacy. 4. Hyperglycemia-blood sugar elevated over 400 thus 10 units of regular insulin given here in the emergency room. Bicarb normal. When I spoke to patient regarding his elevated blood sugar, he elaborated that he does not think he is getting correct insulin dosing at night and that staff it would often use his test strips if another client at the [facility] ran out. I am asking that his guardian address these issues. 5. Disposition-home back to the [facility]. Patient states he will need to use the ambulance and thus we will call. Patient should return to the ER for worsening symptoms and as needed. Medical Records Attestation: I reviewed the patient's medical records. Medical records narrative: Reviewed records from our system, [facility] as well as [facility] physician services. Lab Data Attestation: I reviewed the patient's lab results. Labs: Lab Results 04/01/23 04/01/23 04/01/23 Range/Units 07:25 08:03 08:41 WBC 4.48 L (4.50-11.00) K/uL RBC 4.59 (4.30-5.90) m/uL Hgb 13.3 L (13.5-17.5) gm/dL Hct 39.3 (37.0-53.0) % MCV 86 (80-100) fL MCH 29 (26-34) pg MCHC 34 (32-36) gm/dL RDW Coeff of [place] 14.2 (11.5-15.5) % Plt Count 166 (140-440) K/uL Neut % (Auto) 50.1 (42.0-72.0) % Lymph % (Auto) 38.6 (20-44) % [place] % (Auto) 6.7 (0.0-11.0) % Eos % (Auto) 4.0 (0.0-7.0) % Baso % (Auto) 0.4 (0.0-3.0) % Neut # (Auto) 2.20 (1.7-7.0) K/uL Lymph # (Auto) 1.70 (0.90-2.90) K/uL [place] # (Auto) 0.30 (0.00-0.90) K/UL Eos # (Auto) 0.20 (0.00-0.50) K/uL Baso # (Auto) 0.00 (0.00-0.30) K/uL Abs Immat Gran (auto) 0.00 (0.00-0.30) K/uL Imm/Tot Granulo (auto) 0.2 % Sodium 136 (135-149) mmol/L Potassium 3.8 (3.6-5.1) mmol/L Chloride 97 (96-114) mmol/L Carbon Dioxide 30 (20-32) mmol/L Anion Gap 9 (7-15) mEq/L BUN 31 H (7-30) mg/dL Creatinine 1.3 (0.5-1.5) mg/dL Estimated GFR 62 ml/min Glucose 404 H* (60-115) mg/dL Calcium 8.6 (8.4-10.6) mg/dL Total Bilirubin 0.6 (0.1-1.5) mg/dL AST 32 (12-35) U/L ALT 27 (4-50) U/L Alkaline Phosphatase 139 (40-150) U/L C-Reactive Protein 1.4 H (0.5-1.0) mg/dL NT-Pro-B Natriuret Pep 56 pg/mL Total Protein 7.2 (6.0-8.3) g/dL Albumin 3.8 (3.3-5.0) g/dL Urine Color Yellow (Yellow) Urine Appearance Clear (Clear) Urine pH 7.5 (5.0-8.5) Ur Specific [place] 1.015 (1.000-1.030) Urine Protein Negative (Negative) Urine Glucose (UA) 3+ A (Negative) Urine Ketones Negative (Negative) Urine Blood Negative (Negative) Urine Nitrite Negative (Negative) Urine Bilirubin Negative (Negative) Urine Urobilinogen 1.0 (0.2-1.0) Ur Leukocyte Esterase Negative (Negative) Urine RBC 0-2 (0-2) Urine WBC 0-2 (0-5) Ur Squamous Epith Cells Few (None-Few) Urine Bacteria None (None) SARS-CoV-2 (PCR) Negative SARS-CoV-2 (Negative) Influenza Type A (PCR) Negative PCR FLU A (Negative) Influenza Type B (PCR) Negative PCR FLU B (Negative) RSV (PCR) Negative PCR RSV (Negative) POC Troponin I 0.01 (0.01-0.04) ng/ml 04/01/23 Range/Units 09:43 WBC (4.50-11.00) K/uL RBC (4.30-5.90) m/uL Hgb (13.5-17.5) gm/dL Hct (37.0-53.0) % MCV (80-100) fL MCH (26-34) pg MCHC (32-36) gm/dL RDW Coeff of [place] (11.5-15.5) % Plt Count (140-440) K/uL Neut % (Auto) (42.0-72.0) % Lymph % (Auto) (20-44) % [place] % (Auto) (0.0-11.0) % Eos % (Auto) (0.0-7.0) % Baso % (Auto) (0.0-3.0) % Neut # (Auto) (1.7-7.0) K/uL Lymph # (Auto) (0.90-2.90) K/uL [place] # (Auto) (0.00-0.90) K/UL Eos # (Auto) (0.00-0.50) K/uL Baso # (Auto) (0.00-0.30) K/uL Abs Immat Gran (auto) (0.00-0.30) K/uL Imm/Tot Granulo (auto) % Sodium (135-149) mmol/L Potassium (3.6-5.1) mmol/L Chloride (96-114) mmol/L Carbon Dioxide (20-32) mmol/L Anion Gap (7-15) mEq/L BUN (7-30) mg/dL Creatinine (0.5-1.5) mg/dL Estimated GFR ml/min Glucose (60-115) mg/dL Calcium (8.4-10.6) mg/dL Total Bilirubin (0.1-1.5) mg/dL AST (12-35) U/L ALT (4-50) U/L Alkaline Phosphatase (40-150) U/L C-Reactive Protein (0.5-1.0) mg/dL NT-Pro-B Natriuret Pep pg/mL Total Protein (6.0-8.3) g/dL Albumin (3.3-5.0) g/dL Urine Color (Yellow) Urine Appearance (Clear) Urine pH (5.0-8.5) Ur Specific [place] (1.000-1.030) Urine Protein (Negative) Urine Glucose (UA) (Negative) Urine Ketones (Negative) Urine Blood (Negative) Urine Nitrite (Negative) Urine Bilirubin (Negative) Urine Urobilinogen (0.2-1.0) Ur Leukocyte Esterase (Negative) Urine RBC (0-2) Urine WBC (0-5) Ur Squamous Epith Cells (None-Few) Urine Bacteria (None) SARS-CoV-2 (PCR) (Negative) Influenza Type A (PCR) (Negative) Influenza Type B (PCR) (Negative) RSV (PCR) (Negative) POC Troponin I 0.00 L (0.01-0.04) ng/ml Imaging Data Chest x-ray: Attestation: I have reviewed the pertinent imaging results. My impression: Increased markings lower lobes bilaterally. Radiologist's impression: Portable technique limited by the patient`s body habitus. Lung volumes are low. Enlarged cardiomediastinal silhouette is similar to the previous exam. No effusion or pneumothorax. Left retrocardiac density may be overlapping structures from the patient`s abdomen and cardiac silhouette. IMPRESSION: Limited exam due to body habitus and portable technique. Left retrocardiac opacification is felt likely to be due to overlapping soft tissues. Consider standing PA radiograph if the patient is able. Repeat chest x-ray two view: The lungs are well expanded. Patchy to reticular right lower lobe opacities now better visualized. The previously seen left retrocardiac opacity has resolved entirely and was likely due to overlapping structures. No pulmonary edema. No pleural effusion. No pneumothorax. No pneumomediastinum. Normal cardiomediastinal silhouette. Bones: Normal for age. IMPRESSION: Patchy right lower lobe opacities may be infectious. ECG Data Attestation: I personally reviewed and interpreted this ECG as follows: ECG interpretation date: 04/01/23 Interpretation: EKG 1. Shows sinus rhythm with first-degree edges AV block at a rate of 83. No acute ST or T-wave changes. QT interval normal. EKG 2. Shows sinus rhythm at a rate of 84. First-degree heart block noted. No acute ST or T-wave changes. Discharge Plan Discharge Clinical Impression: Skin irritation, Hyperglycemia, Atypical chest pain, Acute lower respiratory infection Condition: Improved Additional Instructions: 1. Patient had likely lung infection based on x-ray. White count was within normal limits as was oxygen levels. We treated with 1st doses of antibiotics Augmentin and Zithromax here in the emergency room. Further doses sent to pharmacy. Augmentin will be twice a day for 7 days and Zithromax will be once daily for an additional for days. Thus: Next dose of Augmentin will be this evening. Next dose of Zithromax will be tomorrow. 2. We did not find any evidence of heart attack today. EKGs were normal and 2 sets of cardiac enzymes (troponin) were negative. ProBNP which is a test looking for congestive heart failure was negative. I do note that it was recommended Leonid follow-up with outpatient cardiology after a stress test done on December 16. I do not find that this was done. 3. Hyperglycemia-patient was given regular insulin in the emergency room today. He does tell me that he has been running out of test strips because other members at the [facility] have been using them. He also tells me he is supposed to be on as I glucose monitor and that has not been done. I would ask you was guardian to follow up with the [facility] to address his concerns in regards to his blood sugar management. Please check blood sugars as directed. 4. Dry skin-on the back of both of Leonid's thighs he has very dry and irritated skin. I would recommend Amlactin to be applied twice daily to areas of irritation. Prescription sent to pharmacy. Please have physician/rounder look at this area the next time they are present at the [facility]. Seek medical care should you have worsening symptoms. Prescriptions: New amoxicillin-pot clavulanate 875-125 mg tablet 1 tab PO BID Qty: 13 0RF azithromycin [Zithromax] 250 mg tablet 250 mg PO DAILY 4 Days Qty: 4 0RF ammonium lactate 12 % lotion 1 applic topical BID Qty: 225 0RF No Action amlodipine 10 mg tablet 10 mg PO DAILY aripiprazole 15 mg tablet 7.5 mg PO DAILY Eliquis 5 mg tablet 5 mg PO BID aspirin 81 mg tablet,delayed release (DR/EC) 81 mg PO DAILY venlafaxine 75 mg capsule,extended release 24hr 225 mg PO DAILY torsemide 20 mg tablet 20 mg PO DAILY isosorbide mononitrate 30 mg tablet extended release 24 hr 30 mg PO DAILY chlorthalidone 25 mg tablet 25 mg PO DAILY carbamazepine 200 mg tablet 200 mg PO BID pravastatin 80 mg tablet 80 mg PO HS pantoprazole 40 mg tablet,delayed release (DR/EC) 40 mg PO DAILY hydralazine 50 mg tablet 50 mg PO QID Patient Comments: 08,12,16,20 ezetimibe 10 mg tablet 10 mg PO DAILY pregabalin 100 mg capsule 100 mg PO QAM pregabalin 150 mg capsule 150 mg PO HS polyethylene glycol 3350 17 gram/dose powder 17 g PO DAILY Rx Instructions: AND TWICE DAILY NEEDED sennosides [senna] 8.6 mg tablet 8.6 mg PO DAILY ketoconazole 2 % shampoo 1 applic TOPICAL Q3D diphenhydramine HCl [Banophen] 50 mg capsule 50 mg PO Q6H PRN (Reason: itching) loperamide 2 mg capsule 2 mg PO Q6H PRN (Reason: loose stool) acetaminophen 500 mg tablet 500 mg PO Q6H nystatin 100,000 unit/gram powder 1 applic TOPICAL BID PRN albuterol sulfate 90 mcg/actuation HFA aerosol inhaler 1 inh INHALATION Q4H PRN (Reason: bronchospasm) icosapent ethyl [Vascepa] 1 gram capsule 2 g PO BID Humulin R U-500 (Conc) Kwikpen 500 unit/mL (3 mL) insulin pen 85 unit SUBCUT TID potassium chloride 20 mEq tablet extended release 20 meq PO DAILY Qty: 10 2RF clotrimazole 1 % cream 1 applic topical BID Rx Instructions: GROIN,PERIAREA AND ABDOMIN fluconazole 150 mg tablet 150 mg PO TUFR@09 gatifloxacin 0.5 % drops 1 drp ophthalmic (eye) QID ketorolac 0.5 % drops 1 drp ophthalmic (eye) QID Rx Instructions: STOP DATE 08/11/22 prednisolone acetate 1 % drops,suspension 1 drp ophthalmic (eye) QID Rx Instructions: STOP DATE 08/12/22 ergocalciferol (vitamin D2) 1,250 mcg (50,000 unit) capsule 50,000 unit PO WE@09 carvedilol 25 mg Tablet 25 mg PO Q12H 30 Days Qty: 60 0RF lisinopril 20 mg Tablet 20 mg PO DAILY 30 Days Qty: 60 0RF amoxicillin-pot clavulanate 875-125 mg tablet 1 tab PO BID 7 Days Qty: 14 0RF nystatin 100,000 unit/gram powder 1 applic topical BID Qty: 30 1RF hydrocortisone 2.5 % cream 1 applic topical BID PRNQty: 30 1RF cephalexin 500 mg capsule 500 mg PO TID 10 Days Qty: 30 0RF potassium chloride 20 mEq packet 20 meq PO DAILY 3 Days Qty: 3 0RF Follow Up/Referrals: Provider,Not a Local [Primary Care Provider] -
--- NOTE | 2023-04-01 08:03 | CRLHL7_ITS ---
For Patients: As a result of the Century Cures Act, medical imaging exams and procedure reports are released immediately into your electronic medical record. You may view this report before your referring provider. If you have questions, please contact your health care provider. INDICATION: Short of breath COMPARISON: 01/22/2023 TECHNIQUE: 1 view chest radiograph. FINDINGS: Portable technique limited by the patient`s body habitus. Lung volumes are low. Enlarged cardiomediastinal silhouette is similar to the previous exam. No effusion or pneumothorax. Left retrocardiac density may be overlapping structures from the patient`s abdomen and cardiac silhouette. IMPRESSION: Limited exam due to body habitus and portable technique. Left retrocardiac opacification is felt likely to be due to overlapping soft tissues. Consider standing PA radiograph if the patient is able. Dictated by Odalis Koroma MD @ 04/01/2023 8:34:18 AM (Electronically Signed)
[2023-04-01 08:14] LABS: PCR FLU A Negative PCR FLU A (Negative); PCR FLU B Negative PCR FLU B (Negative); PCR RSV Negative PCR RSV (Negative)
[2023-04-01 08:16] LABS: SARS PCR* Negative SARS-CoV-2 (Negative)
[2023-04-01 08:27] LABS: Appearance Urine Clear (Clear); Bilirubin Urine Negative (Negative); Blood Urine Negative (Negative); Color Urine Yellow (Yellow); Glucose Urine 3+ (Negative); Ketones Urine Negative (Negative); Leukocyte Esterase Urine Negative (Negative); Nitrite Urine Negative (Negative); Protein Urine Negative (Negative); Specific Gravity Urine 1.015 (1.000-1.030); pH Urine 7.5 (5.0-8.5)
--- OUTSIDE RECORDS SUMMARY | 2023-04-01 08:36 | XMS_ITS | CCD ---
Author Name Chelo Fonseca PA-C Address [address] [place] [address] Phone Organization [facility] Phone Care Team Providers Care Yarn Packer Name Role Phone Chelo Fonseca PA-C Primary Care Provider Unavaila ble Chelo Fonseac PA-C Chronic Care Management Unavai suzi Summary Purpose DataExchange Insurance Providers Payer name Policy type / Coverage type Covered green party ID Effective Begin Date Effective End Date [place] Part B [id number] Unknown Unknown [place] Medicare Part B [id number] Unknown Unknown Family history Sister Brittany Suggs [...] Unknown Retirement 09/03/[address]: 5516200 Non-Smoker / No History of Smoking 09/02/[address]: 705442996 No Alcohol Consum ption 09/02/2020 Allergies, Adverse Reactions, Alerts Substance Reaction Codes Entered Date Inactivated Date Status LISINOPRIL RxNorm: 13327 02/12/2020 No Inactive Da te Active Metformin HCl Unknown 02/12/2020 No Inactive Cristiano e Active Problems Condition Codes Effective Dates Condition St at[facility] Annual physical exam ICD-10: Z00.00 ICD-9: V70.0 02/02/2023 Active Coronary artery disease invo lving [place] coronary artery of [place] heart, angina presence unspecified ICD-10: I25.10 ICD-9: 414.01 02/02/2023 Active Encounter for other specifie d special examinations ICD-10: Z01.89 ICD-9: V72.85 02/02/2023 Active Encounter for screening for nutritional disorder ICD-10: Z13.21 ICD-9: V77.99 02/02/2023 Active Hyperlipidemia associated wi th type 2 diabetes mellitus ICD-10: E11.69 ICD-9: 250.80 02/02/2023 Active 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 ICD-10: Z79.899 ICD-9: [...] Fill Instructions fluconazole 150 mg tablet RxNorm: 885673 Take 1 Tablet(s) Oral on day 3 and on day 6 02/03/20 024 Active chlorthalidone 25 mg tablet RxNorm: 329482 Take 1 Tablet(s) Oral QAM every morning 02/03/20 No Stop Date Active venlafaxine ER 150 mg capsule,extended release 24 hr RxNorm: 944339 Take 1 Capsule(s) Oral QD 02/03/20 023 Inactive acetaminophen 500 mg tablet RxNorm: 811996 1 TABLET ORALLY 3 TIMES DAILY (MAX APAP:4GM/24HR) 12/15/19 024 Active potassium chloride ER 20 mEq tablet,extended release RxNorm: 749544 Take 1 Tablet(s) Oral BID 12/09/19 023 Active d/c 20mEq once daily (sent from hospital) clotrimazole 1 % topical cream RxNorm: 336503 apply 1g topically to top of feet and in between toes BID 12/09/19 23 023 Active nystatin 100,000 unit/gram topical powder RxNorm: 375198 APPLY TO AFFECTED AREAS TOPICALLY 2 TIMES DAILY 11/21/19 23 024 Active Nystop 100,000 unit/gram topical powder RxNorm: 114193 Apply to abd folds, under breasts and L side of groin Topical BID x 14 days, then BID PRN 11/20/19 023 Inactive dx: yeast dermatitis [place] Ultra Strength 4 %-30 %-10 % topical cream RxNorm: 615344 Apply 1 Gram(s) Topical QID PRN to feet and legs for neuropathic pain 11/11/19 024 Active hydrocortisone 2.5 % topical cream RxNorm: 893789 Apply 1/2 Gram(s) Topical BID as needed 11/10/19 No Stop Date Active clotrimazole 1 % topical cream RxNorm: 191089 Apply 1/2 Gram(s) Topical BID Apply to affected areas of groin, periarea, and abdominal topically 2 times daily 11/10/19 23 023 Inactive Levemir FlexPen 100 unit/mL (3 mL) solution subcutaneous insulin pen RxNorm: 174150 Inject 30 Unit(s) Subcutaneous BID 10/07/19 024 Active Humulin R U-500 (Concentrated) Insulin 500 unit/mL subcutaneous soln RxNorm: 389808 Inject 100 Unit(s) Subcutaneous TID 10/07/19 024 Active Ozempic 0.25 mg or 0.5 mg (2 mg/3 mL) subcutaneous pen injector RxNorm: 4922231 Inject 1/2 Milligram(s) Subcutaneous QW once a week 10/07/19 024 Active aripiprazole 15 mg tablet RxNorm: 599465 1/2 TAB (7.5MG) ORALLY DAILY (DX:MAJOR DEPRESSIVE DISORDER) 09/23/19 023 Active Accu-Chek Guide test strips RxNorm: Use 1 Test Strip QID 09/15/19 024 Active ok to substitute with any covered alternative test strip Lancets,Thin 28 gauge RxNorm: Use 1 as directed QID 09/15/19 23 024 Active torsemide 20 mg tablet RxNorm: 841900 Take 1 Tablet(s) Oral BID 09/09/19 024 Active d/c once daily dosing carvedilol 25 mg tablet RxNorm: 532609 Take 1 Tablet(s) Oral QD 08/25/19 024 Active pregabalin 150 mg capsule RxNorm: 822980 1 Capsule(s) Oral HS at bed time 08/18/19 023 Inactive pregabalin 100 mg capsule RxNorm: 854605 1 Capsule(s) Oral QAM every morning 08/18/19 023 Inactive carvedilol 25 mg tablet RxNorm: 603554 1 Tablet(s) Oral QD 07/28/19 23 023 Inactive lisinopril 20 mg tablet RxNorm: 096874 Give 1 Tablet(s) Oral QD 07/28/19 23 023 Inactive Lyrica 150 mg capsule RxNorm: 849653 Take 1 Capsule(s) Oral QHS every night at bedtime 07/19/19 23 023 Inactive d/c 100mg dose Diflucan 150 mg tablet RxNorm: 239506 Take 1 Tablet(s) Oral QD repeat on day 3 and 6 07/19/19 23 023 Inactive pregabalin 100 mg capsule RxNorm: 171953 Take 1 Capsule(s) Oral QAM every morning 07/19/19 23 023 Inactive gatifloxacin 0.5 % eye drops RxNorm: 874307 Instill 1 Drop(s) as directed TID Instill 1 drop in to affected eye(s) starting 1 day prior to surgery and continue until gone (do not exceed 4 weeks). 07/13/19 23 023 Inactive carvedilol 25 mg tablet RxNorm: 044428 2 Tablet(s) Oral BID 07/13/19 23 023 Inactive Humulin R Regular U-100 Insulin 100 unit/mL injection solution RxNorm: 695049 85 Unit(s) Injection TID 07/13/19 23 023 Inactive ketorolac 0.5 % eye drops RxNorm: 284945 Instill 1 Drop(s) as directed QID Instill 1 drop into affected eye(s) 4 times daily starting 1 day prior to surgery and continue until gone (do not exceed 4 weeks). 07/13/19 23 023 Inactive Diflucan 150 mg tablet RxNorm: 127916 Take 1 Tablet(s) Oral QD repeat on day 3 and 6 06/30/19 23 023 Inactive Accu-Chek Guide test strips RxNorm: Use 1 Test Strip QID Use 1 test strip to monitor blood glucose 4 times daily and as needed. Dx:E11.42. 06/23/19 23 023 Inactive ok to substitute with any covered alternative test strip dextromethorphan-gu aifenesin 10 mg-100 mg/5 mL oral liquid RxNorm: 126986 Take 10 Milliliter(s) Oral every 4 hours as needed for cough 06/19/19 23 023 Inactive dextromethorphan-gu aifenesin 10 mg-100 mg/5 mL oral liquid RxNorm: 272975 Take 10 Milliliter(s) Oral every 4 hours as needed for cough 06/19/19 23 023 Inactive Lyrica 150 mg capsule RxNorm: 216285 Take 1 Capsule(s) Oral QHS every night at bedtime 06/18/19 023 Inactive d/c 100mg dose aripiprazole 15 mg tablet RxNorm: 720659 1/2 TAB (7.5MG) ORALLY DAILY (DX:MAJOR DEPRESSIVE DISORDER) 06/05/19 023 Inactive pregabalin 100 mg capsule RxNorm: 674426 1 Capsule(s) Oral QAM every morning 06/02/19 023 Inactive Banophen 50 mg capsule RxNorm: 5697124 Take 1 Capsule(s) Oral Q6H every 6 hours as needed 05/19/19 No Stop Date Active Novolog Flexpen U-100 Insulin aspart 100 unit/mL (3 mL) subcutaneous RxNorm: 6296707 Inject 10 Unit(s) Subcutaneous QHS every night at bedtime with nighttime snack 04/08/20 022 Inactive Novolog Flexpen U-100 Insulin aspart 100 unit/mL (3 mL) subcutaneous RxNorm: 4636785 Inject 42 Unit(s) Subcutaneous TID in addition to sliding scale 04/08/20 022 Inactive d/c 36u albuterol sulfate HFA 90 mcg/actuation aerosol inhaler RxNorm: 5621435 Take 2 Puff(s) Inhalation Q4H every four hours as needed as needed for SOB, cough, or wheezing 04/07/20 030 Active Banophen 50 mg capsule RxNorm: 5535709 Take 1 Capsule(s) Oral Q6H every 6 hours as needed 04/06/20 023 Inactive diphenhydramine 50 mg tablet RxNorm: 0651734 Take 1 Tablet(s) Oral Q6H every 6 hours as needed 04/06/20 22 022 Inactive diphenhydramine 50 mg tablet RxNorm: 0575765 1 Tablet(s) Oral Q6H every 6 hours as needed 04/06/20 22 022 Inactive Abilify 15 mg tablet RxNorm: 607159 1/2 Tablet(s) Oral QD 03/10/20 22 023 Inactive Shingrix (PF) 50 mcg/0.5 mL intramuscular suspension, kit RxNorm: 3533753 Administer 1/2 Milliliter(s) Intramuscular QD one time shingrix step 2 ( step 1 given 11/04/21) WITH needle - Nursing please administer upon arrival and once administered post a bridge message with date of administration, duct maker, expiration date, and lot# so we can update [facility] 02/18/20 22 022 Inactive dispense with needle Shingrix (PF) 50 mcg/0.5 mL intramuscular suspension, kit RxNorm: 3499747 Administer 1/2 Milliliter(s) Intramuscular QD one time shingrix step 2 ( step 1 given 11/04/21) WITH needle - Nursing please administer upon arrival and once administered post a bridge message with date of administration, duct maker, expiration date, and lot# so we can update [facility] 02/18/20 22 022 Inactive dispense with needle polyethylene glycol 3350 17 gram/dose oral powder RxNorm: 345981 Take 17=1 capful Gram(s) Oral QD mix with 4-8oz of liquid 01/08/20 22 023 Inactive take this in addition to BID prn order Lyrica 100 mg capsule RxNorm: 867147 Take 1 Capsule(s) Oral QAM every morning 01/08/20 22 022 Inactive d/c 50mg dose acetaminophen 500 mg tablet RxNorm: 594422 Take 1 Tablet(s) Oral TID 01/08/20 22 022 Inactive d/c PRN order Lyrica 150 mg capsule RxNorm: 001229 Take 1 Capsule(s) Oral QHS every night at bedtime 01/08/20 22 023 Inactive d/c 100mg dose Abilify 5 mg tablet RxNorm: 828443 Take 1 Tablet(s) Oral QD take 1 tab po QD #30 refill 5 dx: MDD 12/12/19 22 022 Inactive Abilify 5 mg tablet RxNorm: 226475 Take 1 Tablet(s) Oral QD take 1 tab po QD #30 refill 5 dx: MDD 12/12/19 22 022 Inactive Novolog Flexpen U-100 Insulin aspart 100 unit/mL (3 mL) subcutaneous RxNorm: 8187773 Inject 42 Unit(s) Subcutaneous TID in addition to sliding scale 12/10/19 22 022 Inactive d/c 36u chlorthalidone 25 mg tablet RxNorm: 779751 Take 1 Tablet(s) Oral QAM every morning 12/10/19 22 023 Inactive pregabalin 50 mg capsule RxNorm: 654413 Take 1 Capsule(s) Oral QAM every morning 11/12/19 22 022 Inactive tetanus-diphtheria toxoids-Td 2 Lf unit-2 Lf unit/0.5 mL IM suspension RxNorm: 139 Take 0.5 Miscellaneous Intramuscular 11/12/19 22 022 Inactive need tdap - nursing to administer upon arrival pregabalin 50 mg capsule RxNorm: 870843 Take 1 Capsule(s) Oral QAM every morning 10/16/19 22 022 Inactive pregabalin 50 mg capsule RxNorm: 420107 Take 1 Capsule(s) Oral QAM every morning 10/16/19 22 022 Inactive pregabalin 50 mg capsule RxNorm: 930056 1 Capsule(s) Oral QAM every morning 10/15/19 22 022 Inactive Shingrix (PF) 50 mcg/0.5 mL intramuscular suspension, kit RxNorm: 6441624 Administer 1/2 Milliliter(s) Intramuscular one time Nursing please administer upon arrival and once administered post a bridge message with date of administration, duct maker, expiration date, and lot# so we can update [facility]. 10/09/19 22 022 Inactive shingrix step 1 Shingrix (PF) 50 mcg/0.5 mL intramuscular suspension, kit RxNorm: 6523792 Administer 1/2 Milliliter(s) Intramuscular one time Nursing please administer upon arrival and once administered post a bridge message with date of administration, duct maker, expiration date, and lot# so we can update [facility]IC. 10/09/19 22 022 Inactive shingrix step 1 cholecalciferol (vitamin D3) 1,250 mcg (50,000 unit) capsule RxNorm: 417739 Take 1 Capsule(s) Oral QW once a [...] aspart 100 unit/mL (3 mL) subcutaneous RxNorm: 0578928 Inject 10 Unit(s) Subcutaneous QHS every night at bedtime with nighttime snack 10/08/19 22 Inactive Shingrix (PF) 50 mcg/0.5 mL intramuscular suspension, kit RxNorm: 5671367 ADMINISTER 2-DOSE SERIES PER CDC GUIDELINES 10/08/19 22 Active Shingrix (PF) 50 mcg/0.5 mL intramuscular suspension, kit RxNorm: 3226563 ADMINISTER 2-DOSE SERIES PER CDC GUIDELINES 10/08/19 22 Inactive Novolog Flexpen U-100 Insulin aspart 100 unit/mL (3 mL) subcutaneous RxNorm: 8315364 Inject 36 Unit(s) Subcutaneous TID in addition to sliding scale 10/08/19 22 Inactive Novofine Autocover 30 gauge x 1/3 needle RxNorm: Use 1 Miscellaneous UD as directed Use 1 needle as directed to administer insulin 5 times a day Dx:E11.42. 10/03/19 Inactive ok to substitute with any covered alternative pen needle benzoyl peroxide 10 % topical cleanser RxNorm: 528489 Apply 1 Application Topical QD apply to face, wash rinse and dry once daily (may change to QOD if drying) 08/19/19 22 022 Inactive (%covered by insurance) #60ml refill 11 dx: acne benzoyl peroxide 10 % topical cleanser RxNorm: 742114 Apply 1 Application Topical QD apply to face, wash rinse and dry once daily (may change to QOD if drying) 08/19/19 22 022 Inactive (%covered by insurance) #60ml refill 11 dx: acne benzoyl peroxide 10 % topical cleanser RxNorm: 281378 Apply 1 Application Topical QD apply to face, wash rinse and dry once daily (may change to QOD if drying) 08/19/19 22 022 Inactive (%covered by insurance) #60ml refill 11 dx: acne Lyrica 50 mg capsule RxNorm: 832680 Take 1 Capsule(s) Oral QAM every morning Take 1 capsule by mouth once daily 08/19/19 22 022 Inactive benzoyl peroxide 10 % topical cleanser RxNorm: 948892 Apply 1 Application Topical QD apply to face, wash rinse and dry once daily (may change to QOD if drying) 08/19/19 22 022 Inactive (%covered by insurance) #60ml refill 11 dx: acne Lyrica 100 mg capsule RxNorm: 532658 Take 1 Capsule(s) Oral QHS every night at bedtime Take 1 capsule by mouth once daily at bedtime 08/19/19 22 022 Inactive Lyrica 100 mg capsule RxNorm: 714446 Take 1 Capsule(s) Oral QHS every night at bedtime Take 1 capsule by mouth once daily at bedtime 08/16/19 22 022 Inactive Lyrica 50 mg capsule RxNorm: 857932 Take 1 Capsule(s) Oral QAM every morning Take 1 capsule by mouth once daily 08/16/19 22 022 Inactive Levemir FlexTouch U-100 Insulin 100 unit/mL (3 mL) subcutaneous pen RxNorm: 313656 Inject 86 Unit(s) Subcutaneous BID 08/05/19 22 022 Inactive d/c 83units BID Lyrica 100 mg capsule RxNorm: 046469 Take 1 Capsule(s) Oral QHS every night at bedtime Take 1 capsule by mouth once daily at bedtime 07/14/19 22 022 Inactive Lyrica 50 mg capsule RxNorm: 785170 Take 1 Capsule(s) Oral QAM every morning Take 1 capsule by mouth once daily 07/14/19 22 022 Inactive Levemir FlexTouch U-100 Insulin 100 unit/mL (3 mL) subcutaneous pen RxNorm: 170829 Inject 83 Unit(s) Subcutaneous BID 07/08/19 22 [...] 30 mg tablet,extended release 24 hr RxNorm: 953790 Take 1 Tablet(s) Oral QD 05/05/20 No Stop Date Active hydralazine 50 mg tablet RxNorm: 043456 Take 1 Tablet(s) Oral QID 05/05/20 21 022 Inactive venlafaxine ER 225 mg tablet,extended release 24 hr RxNorm: 924266 Take 1 Tablet(s) Oral QD 05/05/20 21 Inactive venlafaxine ER 225 mg tablet,extended release 24 hr RxNorm: 231158 Take 1 Tablet(s) Oral QD 05/05/20 022 Inactive hydralazine 50 mg tablet RxNorm: 916473 Take 1 Tablet(s) Oral QID 05/05/20 21 021 Inactive aspirin 81 mg tablet,delayed release RxNorm: 338726 Take 1 Tablet(s) Oral QD 03/31/20 022 Inactive Zetia 10 mg tablet RxNorm: 172907 Take 1 Tablet(s) Oral QD 03/31/20 Inactive Vitamin D2 1,250 mcg (50,000 unit) capsule RxNorm: 8425750 Take 1 Capsule(s) Oral QW once a week x 12 weeks 03/31/20 Inactive Vitamin D2 1,250 mcg (50,000 unit) capsule RxNorm: 7176321 Take 1 Capsule(s) Oral QW once a week 03/31/20 Inactive Zetia 10 mg tablet RxNorm: 444297 Take 1 Tablet(s) Oral QD 03/31/20 Inactive hydralazine 25 mg tablet RxNorm: 741587 Take 1 Tablet(s) Oral QID 03/31/20 21 021 Inactive hydralazine 25 mg tablet RxNorm: 121581 Take 1 Tablet(s) Oral QID 03/31/20 021 Inactive hydralazine 10 mg tablet RxNorm: 523205 Take 1 Tablet(s) Oral QID 03/03/20 021 Inactive cephalexin 500 mg tablet RxNorm: 891177 Take 1 Tablet(s) Oral QID 02/27/20 021 Inactive cephalexin 500 mg tablet RxNorm: 286439 Take 1 Tablet(s) Oral QID 02/27/20 21 021 Inactive lisinopril 40 mg tablet RxNorm: 753716 Take 1 Tablet(s) Oral QD 02/11/20 21 023 Inactive Eliquis 5 mg tablet RxNorm: 2242083 Take 1 Tablet(s) Oral BID 01/05/20 022 Inactive Eliquis 5 mg tablet RxNorm: 2847665 Take 2 Tablet(s) Oral QD 01/01/20 021 Inactive Lyrica 50 mg capsule RxNorm: 721392 Take 1 Capsule(s) Oral QAM every morning 12/24/19 021 Inactive Lyrica 100 mg capsule RxNorm: 343302 Take 1 Capsule(s) Oral QHS every night at bedtime 12/24/19 021 Inactive clotrimazole 1 % topical cream RxNorm: 831440 Apply to right foot and toes Topical BID 12/04/19 21 023 Inactive metoprolol succinate ER 200 mg tablet,extended release 24 hr RxNorm: 194812 Take 1 Tablet(s) Oral QD 12/04/19 023 Inactive ciprofloxacin 500 mg tablet RxNorm: 492501 Take 1 Tablet(s) Oral QD 11/30/19 021 Inactive DX ofloxacin otic drops Accu-Chek Guide test strips RxNorm: USE 1 TO CHECK GLUCOSE 4 TIMES DAILY AND NEEDED 11/15/19 023 Inactive Blood Glucose Test strips RxNorm: Use 1 Test Strip QID at PRN 11/05/19 21 023 Inactive E11.42 lisinopril 30 mg tablet RxNorm: 594181 Take 1 Tablet(s) Oral QD 10/30/19 021 Inactive lisinopril 20 mg tablet RxNorm: 474968 Take 1 Tablet(s) Oral QD 10/23/19 021 Inactive lisinopril 20 mg tablet RxNorm: 369367 Take 1 Tablet(s) Oral QD 10/23/19 021 Inactive lisinopril 10 mg tablet RxNorm: 986797 Take 1 Tablet(s) Oral QD 10/02/19 21 021 Inactive icosapent ethyl 1 gram capsule RxNorm: 9039388 Take 2 Capsule(s) (2 gm) Oral BID with meals 09/12/19 21 022 Inactive Okay to dispense one 2gm tab if you have that available. icosapent ethyl 1 gram capsule RxNorm: 8026027 Take 2 Capsule(s) Oral BID 09/12/19 21 021 Inactive Okay to dispense one 2gm tab if you have that available. amlodipine 10 mg tablet RxNorm: 537084 Take 1 Tablet(s) Oral QD 09/04/19 022 Inactive aspirin 81 mg tablet,delayed release RxNorm: 624383 Take 1 Tablet(s) Oral QD 09/04/19 021 Inactive Levemir FlexTouch U-100 Insulin 100 unit/mL (3 mL) subcutaneous pen RxNorm: 276449 Inject 150 Unit(s) Subcutaneous BID 09/04/19 022 Inactive venlafaxine ER 150 mg tablet,extended release 24 hr RxNorm: 775146 Take 1 Tablet(s) Oral QD 09/04/19 021 Inactive clotrimazole-betame thasone 1 %-0.05 % topical cream RxNorm: 491067 Apply to rash on red area on left abdomen/chest Topical BID 08/10/19 21 021 Inactive amlodipine 5 mg tablet RxNorm: 108371 Take 1 Tablet(s) Oral QD 07/31/19 021 Inactive cephalexin 500 mg tablet RxNorm: 013579 Take 1 Tablet(s) Oral BID BID - Twice Daily 07/31/19 021 Inactive Start 08/01/20 pantoprazole 40 mg tablet,delayed release RxNorm: 607012 Take 1 Tablet(s) Oral QAM every morning 07/08/19 022 Inactive senna 8.6 mg tablet RxNorm: 108438 Take 1 Tablet(s) Oral QD 07/08/19 022 Inactive pravastatin 80 mg tablet RxNorm: 605324 Take 1 Tablet(s) Oral QHS every night at bedtime 07/08/19 022 Inactive carbamazepine 200 mg tablet RxNorm: 379438 Take 1 Tablet(s) Oral BID 07/08/19 022 Inactive clopidogrel 75 mg tablet RxNorm: 306879 Take 1 Tablet(s) Oral QD 07/08/19 21 021 Inactive Blood Glucose Test strips RxNorm: Use 1 Test Strip QID at PRN 07/08/19 21 Inactive E11.42 Novolog Flexpen U-100 Insulin aspart 100 unit/mL (3 mL) subcutaneous RxNorm: 3920185 Administer per sliding scale Milliliter(s) Subcutaneous TID 151-200: 10 u; 201-250: 20 u; 251-300: 30 u; 301-350: 40 u; 351-400: 50 u. 07/08/19 21 022 Inactive lisinopril 5 mg tablet RxNorm: 643840 Take 1 Tablet(s) Oral QD 07/08/19 021 Inactive Novolog Flexpen U-100 Insulin aspart 100 unit/mL (3 mL) subcutaneous RxNorm: 8668832 Inject 85 Unit(s) Subcutaneous TID 07/08/19 022 Inactive clotrimazole 1 % topical cream RxNorm: 780661 Apply to bilateral groin areas Topical BID 07/08/19 21 022 Inactive metoprolol succinate ER 200 mg tablet,extended release 24 hr RxNorm: 803565 Take 1 Tablet(s) Oral QD 07/08/19 021 Inactive Vitamin D3 25 mcg (1,000 unit) tablet RxNorm: 630836 Take 1 Tablet(s) Oral QD 07/08/19 021 Inactive isosorbide dinitrate 30 mg tablet RxNorm: 434878 Take 1 Tablet(s) Oral QD 07/08/19 21 021 Inactive Levemir FlexTouch U-100 Insulin 100 unit/mL (3 mL) subcutaneous pen RxNorm: 943954 Inject 140 Unit(s) Subcutaneous BID 07/08/19 21 021 Inactive torsemide 20 mg tablet RxNorm: 936388 Take 1 Tablet(s) Oral QD 07/08/19 21 023 Inactive venlafaxine 75 mg tablet RxNorm: 127862 Take 1 Tablet(s) Oral QD 07/08/19 21 021 Inactive acetaminophen 500 mg tablet RxNorm: 891811 Take 1 Tablet(s) Oral TID as needed for headache 06/18/19 21 021 Inactive acetaminophen 500 mg tablet RxNorm: 512967 Take 1 Tablet(s) Oral TID as needed for headache 06/18/19 21 021 Inactive Lyrica 100 mg capsule RxNorm: 747094 Take 1 Capsule(s) Oral QHS every night at bedtime 06/11/19 21 021 Inactive Lyrica 50 mg capsule RxNorm: 886603 Take 1 Capsule(s) Oral QAM every morning 06/10/19 21 021 Inactive hydrocortisone 2.5 % topical cream RxNorm: 388456 Apply to bilateral groin creases Topical BID 05/15/20 20 021 Inactive clotrimazole 1 % topical cream RxNorm: 908074 Apply to bilateral groin areas Topical BID 05/15/20 20 021 Inactive Lyrica 50 mg capsule RxNorm: 369702 Take 1 Capsule(s) Oral QAM every morning 05/14/20 20 020 Inactive Lyrica 100 mg capsule RxNorm: 611161 Take 1 Capsule(s) Oral QHS every night [...] Inactive Nystop 100,000 unit/gram topical powder RxNorm: 815720 Apply to abd folds, under breasts and L side of groin Topical BID x 14 days, then BID PRN 04/08/20 20 Inactive dx: yeast dermatitis Lyrica 100 mg capsule RxNorm: 311599 Take 1 Capsule(s) Oral QHS every night at bedtime 03/13/20 20 Inactive Lyrica 50 mg capsule RxNorm: 800137 Take 1 Capsule(s) Oral QAM every morning 03/13/20 Inactive ketoconazole 2 % shampoo RxNorm: 937683 Apply Topical two times a week with showers 03/11/20 20 Inactive cholecalciferol (vitamin D3) 50 mcg (2,000 unit) tablet RxNorm: 830816 Take 1 Tablet(s) Oral QD 03/11/20 20 Inactive Zetia 10 mg tablet RxNorm: 678352 Take 1 Tablet(s) Oral QD 03/07/20 20 Inactive Zetia 10 mg tablet RxNorm: 610648 Take 1 Tablet(s) Oral QD 03/07/20 20 Inactive Lyrica 50 mg capsule RxNorm: 535652 Take 1 Capsule(s) Oral QAM every morning 02/15/20 20 Inactive Lyrica 100 mg capsule RxNorm: 146270 Take 1 Capsule(s) Oral QHS every night at bedtime 02/15/20 20 Inactive Lyrica 100 mg capsule RxNorm: 426945 Take 1 Capsule(s) Oral QHS every night at bedtime 02/15/20 20 Inactive Lyrica 50 mg capsule RxNorm: 959330 Take 1 Capsule(s) Oral QAM every morning 02/15/20 20 Inactive polyethylene glycol 3350 17 gram/dose oral powder RxNorm: 082263 Take 17=1 capful Gram(s) Oral BID as needed mix with 4-8oz of liquid 06/12/19 Active metoprolol succinate ER 200 mg tablet,extended release 24 hr RxNorm: 097285 Take 1 Tablet(s) Oral QD 08/12/19 Active loperamide 2 mg capsule RxNorm: 030552 Take 1 Capsule(s) Oral QID as needed 06/12/19 Active hydralazine 50 mg tablet RxNorm: 553985 Take 1 Tablet(s) Oral QID 08/12/19 23 Active venlafaxine ER 75 mg capsule,extended release 24 hr RxNorm: 339902 Take 3 Capsule(s) Oral QD 06/12/19 22 023 Inactive icosapent ethyl 1 gram capsule RxNorm: 6000261 Take 2 Capsule(s) (2 gm) Oral BID with meals 10/07/19 23 023 Inactive Okay to dispense one 2gm tab if you have that available. Levemir FlexTouch U-100 Insulin 100 unit/mL (3 mL) subcutaneous pen RxNorm: 957391 Inject 80 Unit(s) Subcutaneous BID 07/14/19 23 023 Inactive Novolog Flexpen U-100 Insulin aspart 100 unit/mL (3 mL) subcutaneous RxNorm: 2720840 Insert 30 Unit(s) Subcutaneous TID with meals [...] Complete Metabolic Panel (CMP) CMP Calcium (Ca) 54737-0 8.7 mg/dL 023 Unknown Complete Metabolic Panel [...] 023 Unknown Hemoglobin A1c HEMOGLOBA Hemoglobin A1c 39635-7 10.8 %A1c 023 Unknown Prostat Specific Antigen (PSA), Total PSA Prostate Specific Antigen (PSA), Total 85680-0 0.20 ng/mL 023 Unknown Vitamin D, 25-Hydroxy VITAD25 Vitamin D, 25-Hydroxy 59981-1 26 ng/mL 023 Unknown CBC with Differential [...] CBC with Differential / Platelets CBCDIFF MPV 81485-2 9.8 fL 023 Unknown CBC with Differential [...] Unknown Lipid Panel (LP) LIPIDPAN CHOLESTEROL, TOTAL 79482-0 244 mg/dL 023 Unknown Lipid Panel (LP) LIPIDPAN HDL CHOLESTEROL 2085-9 24.8 mg /dL 023 Unknown Lipid Panel (LP) LIPIDPAN TRIGLYCERIDES 2571-8 1637 mg/d L 023 Unknown Lipid Panel (LP) LIPIDPAN VLDL Cholestero l Calculated 327 023 Unknown PDFReport PDFReport PDFReport 023 Unknown SLUMS SLUMS 24365-2 not completed 023 Unknown PHQ9 PHQ9 51447-1 12 023 Unknown Procedures Procedure Codes Date SYS BP > OR = 140 CPT-4: G8753 02/02/2023 CUI BP LESS 90 CPT-4: G8754 02/02/2023 ADVNC CARE PLAN IN RCRD CPT-4: 1157F 02/03/20 23 FXNL STATUS ASSESSED CPT-4: 1170F 02/02/2023 AMNT PAIN NOTED NONE PRSNT CPT-4: 1126F 02/02 FALL RISK ASSESSMENT DOCD CPT-4: 3288F 2022 PPPS, SUBSEQ VISIT SNOMED CT: 454916634 [id number] CPT-4: G0439 02/02/2023 POS CLIN DEPRES SCRN F/U DOC SNOMED CT: 16660444 CPT-4: G8431 02/02/2023 Vital Signs Date Vital 02/02/2023 Blood Pressure 1: 159/80 Code: 8480-6 Heart Rate 1: 78 bpm Code: 8867-4 Height: 5'5 Code: 8302-2 Respiratory Rate: 16 bpm Temperature: 36.4 (C) / 97.5 (F) Weight: Code: 3141-9 Reason For Visit No Reason For Visit data Encounters Encounter Performer Location Location Address Codes Date ([address]) Home or Residence Visit Est Pt - Moderate Level, 40 mins Diagnosis: Other continuous churn buttermaker (current) drug therapy[ICD10: Z79.899] Diagnosis: Encounter for [...] exam[ICD10: Z00.00] Diagnosis: Coronary artery disease involving [place] coronary artery of [place] heart, angina presence unspecified[ICD10: I25.10] Chelo Frostfelib[address] [place] [address] [place] [id number] CPT-4: 78657 02/02/2023 Plan of Care Planned Activity Notes Codes Status Date Patient Education: Patient Medication Summary Completed 02/02/2023 Patient Education: Influenza Vaccine Completed 02/02/2023 Appointment: Sandra Clark WPtel: [address] [facility] 300 [id number] Telehealth Psych Follow Up 12/09 Appointment: Tapan Shirley WPtel: [address] [facility] 300 [id number] [facility] 10/26/2022 Referral: [facility] WPtel: [address], [address] [id number] [place] Referral Records Received 09/21/2022 Appointment: Tapan Shirley WPtel: [address] [place] F/U 08/11/2022 Appointment: Tapan Shirley WPtel: [address] [facility] 300 [id number] [place] F/U 07/14/2022 Appointment: Tapan Shirley WPtel: [address] [facility] 300 [id number] [place] F/U 02/10/2022 Referral: [facility] WPtel: [address] [id number] [place] Referral Completed 05/28/2021 Referral: General Cardiology Referral Complet ed 01/03/2021 Referral: General Psychologist Referral Close d Instructions Comment Date Leonid is a?? Male being seen living at [facility]. Initial BPS visit 01/2020. PMHx including DMII, CAD w/ 5 stents, Depression, Seizure Disorder and CKD stage 3. He moved into [facility] in 12/2019 but after a hospitalization 05/2021 he moved to the [facility] to have closer nursing attention.??Sister Jyotsna involved in his care cell# [phone]??Guardian: Giulia (tapan met in person 09/01/21), now [...]
--- OUTSIDE RECORDS SUMMARY | 2023-04-01 08:36 | XMS_ITS | CCD ---
Author Name Unknown Organization Unknown Care Team Providers [facility] [employer] Instructor Name Role Phone Chelo Fonseca PA-C Primary Care Provider Unavaila ble Chelo Fonseca PA-C Chronic Care Management Nicole archer Summary Purpose DataExchange Insurance Providers Payer name Policy type / Coverage type Covered libertarian ID Effective Begin Date Effective End Date Medicare [place] Medicare Part B [id number] Unknown Unknown Medicaid [place] Part B [id number] Unknown Unknown Family history Sister Brittany Suggs [...] Nursing 09/03/[address]: 9576048 Non-Smoker / No History of Smoking 09/02/[address]: 643460270 No Alcohol Consum ption 09/02/2020 Allergies, Adverse Reactions, Alerts Substance Reaction Codes Entered Date Inactivated Date Status LISINOPRIL RxNorm: 96520 02/12/2020 No Inactive Da te Active Metformin HCl Unknown 02/12/2020 No Inactive Cristiano e Active Problems Condition Codes Effective Dates Condition St at[facility] Annual physical exam ICD-10: Z00.00 ICD-9: V70.0 02/02/2023 Active Coronary artery disease invo [place]ving [place] coronary artery of [place] heart, angina presence unspecified ICD-10: I25.10 ICD-9: 414.01 02/02/2023 Active Encounter for other specifie d special examinations ICD-10: Z01.89 ICD-9: V72.85 02/02/2023 Active Encounter for screening for nutritional disorder ICD-10: Z13.21 ICD-9: V77.99 02/02/2023 Active Hyperlipidemia associated wi th type 2 diabetes mellitus ICD-10: E11.69 ICD-9: 250.80 02/02/2023 Active 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 ICD-10: Z79.899 ICD-9: [...] immunization ICD-10: Z23 ICD-9: V03.89 02/10/2022 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 ICD-10: Z79.4 02/10 [...] Fill Instructions pregabalin 150 mg capsule RxNorm: 043413 Take 1 Capsule(s) Oral HS at bed time 02/19/20 23 023 Active pregabalin 100 mg capsule RxNorm: 477343 Take 1 Capsule(s) Oral QAM every morning 02/18/20 23 024 Active FreeStyle Chema 2 Sensor kit RxNorm: use as directed 02/04/20 23 024 Active venlafaxine ER 75 mg capsule,extended release 24 hr RxNorm: 007296 Take 3 Capsule(s) Oral QD 02/04/20 23 023 Inactive FreeStyle Chema 2 Sensor kit RxNorm: use as directed 02/04/20 23 023 Inactive fluconazole 150 mg tablet RxNorm: 199700 Take 1 Tablet(s) Oral on day 3 and on day 6 02/03/20 23 024 Active chlorthalidone 25 mg tablet RxNorm: 897555 Take 1 Tablet(s) Oral QAM every morning 02/03/20 23 No Stop Date Active venlafaxine ER 150 mg capsule,extended release 24 hr RxNorm: 722434 Take 1 Capsule(s) Oral QD 02/03/20 23 023 Inactive acetaminophen 500 mg tablet RxNorm: 048559 1 TABLET ORALLY 3 TIMES DAILY (MAX APAP:4GM/24HR) 12/15/19 23 024 Active potassium chloride ER 20 mEq tablet,extended release RxNorm: 236537 Take 1 Tablet(s) Oral BID 12/09/19 23 023 Active d/c 20mEq once daily (sent from hospital) clotrimazole 1 % topical cream RxNorm: 017433 apply 1g topically to top of feet and in between toes BID 12/09/19 23 023 Active nystatin 100,000 unit/gram topical powder RxNorm: 097773 APPLY TO AFFECTED AREAS TOPICALLY 2 TIMES DAILY 11/21/19 23 024 Active Nystop 100,000 unit/gram topical powder RxNorm: 730348 Apply to abd folds, under breasts and L side of groin Topical BID x 14 days, then BID PRN 11/20/19 23 023 Inactive dx: yeast dermatitis [place] Ultra Strength 4 %-30 %-10 % topical cream RxNorm: 206143 Apply 1 Gram(s) Topical QID PRN to feet and legs for neuropathic pain 11/11/19 23 024 Active hydrocortisone 2.5 % topical cream RxNorm: 730418 Apply 1/2 Gram(s) Topical BID as needed 11/10/19 No Stop Date Active clotrimazole 1 % topical cream RxNorm: 027886 Apply 1/2 Gram(s) Topical BID Apply to affected areas of groin, periarea, and abdominal topically 2 times daily 11/10/19 023 Inactive Levemir FlexPen 100 unit/mL (3 mL) solution subcutaneous insulin pen RxNorm: 426825 Inject 30 Unit(s) Subcutaneous BID 10/07/19 024 Active Humulin R U-500 (Concentrated) Insulin 500 unit/mL subcutaneous soln RxNorm: 183209 Inject 100 Unit(s) Subcutaneous TID 10/07/19 024 Active Ozempic 0.25 mg or 0.5 mg (2 mg/3 mL) subcutaneous pen injector RxNorm: 1204175 Inject 1/2 Milligram(s) Subcutaneous QW once a week 10/07/19 024 Active aripiprazole 15 mg tablet RxNorm: 950435 1/2 TAB (7.5MG) ORALLY DAILY (DX:MAJOR DEPRESSIVE DISORDER) 09/23/19 023 Active Accu-Chek Guide test strips RxNorm: Use 1 Test Strip QID 09/15/19 23 024 Active ok to substitute with any covered alternative test strip Lancets,Thin 28 gauge RxNorm: Use 1 as directed QID 09/15/19 23 024 Active torsemide 20 mg tablet RxNorm: 780190 Take 1 Tablet(s) Oral BID 09/09/19 23 024 Active d/c once daily dosing carvedilol 25 mg tablet RxNorm: 978993 Take 1 Tablet(s) Oral QD 08/25/19 024 Active pregabalin 150 mg capsule RxNorm: 107381 1 Capsule(s) Oral HS at bed time 08/18/19 23 023 Inactive pregabalin 100 mg capsule RxNorm: 940254 1 Capsule(s) Oral QAM every morning 08/18/19 023 Inactive carvedilol 25 mg tablet RxNorm: 120468 1 Tablet(s) Oral QD 07/28/19 23 023 Inactive lisinopril 20 mg tablet RxNorm: 343524 Give 1 Tablet(s) Oral QD 07/28/19 23 023 Inactive Lyrica 150 mg capsule RxNorm: 705983 Take 1 Capsule(s) Oral QHS every night at bedtime 07/19/19 23 023 Inactive d/c 100mg dose Diflucan 150 mg tablet RxNorm: 298003 Take 1 Tablet(s) Oral QD repeat on day 3 and 6 07/19/19 23 023 Inactive pregabalin 100 mg capsule RxNorm: 127851 Take 1 Capsule(s) Oral QAM every morning 07/19/19 023 Inactive gatifloxacin 0.5 % eye drops RxNorm: 552572 Instill 1 Drop(s) as directed TID Instill 1 drop in to affected eye(s) starting 1 day prior to surgery and continue until gone (do not exceed 4 weeks). 07/13/19 23 023 Inactive carvedilol 25 mg tablet RxNorm: 744259 2 Tablet(s) Oral BID 07/13/19 023 Inactive Humulin R Regular U-100 Insulin 100 unit/mL injection solution RxNorm: 616615 85 Unit(s) Injection TID 07/13/19 23 023 Inactive ketorolac 0.5 % eye drops RxNorm: 885475 Instill 1 Drop(s) as directed QID Instill 1 drop into affected eye(s) 4 times daily starting 1 day prior to surgery and continue until gone (do not exceed 4 weeks). 07/13/19 023 Inactive Diflucan 150 mg tablet RxNorm: 816112 Take 1 Tablet(s) Oral QD repeat on day 3 and 6 06/30/19 23 023 Inactive Accu-Chek Guide test strips RxNorm: Use 1 Test Strip QID Use 1 test strip to monitor blood glucose 4 times daily and as needed. Dx:E11.42. 06/23/19 23 023 Inactive ok to substitute with any covered alternative test strip dextromethorphan-gu aifenesin 10 mg-100 mg/5 mL oral liquid RxNorm: 322772 Take 10 Milliliter(s) Oral every 4 hours as needed for cough 06/19/19 23 023 Inactive dextromethorphan-gu aifenesin 10 mg-100 mg/5 mL oral liquid RxNorm: 225183 Take 10 Milliliter(s) Oral every 4 hours as needed for cough 06/19/19 023 Inactive Lyrica 150 mg capsule RxNorm: 058069 Take 1 Capsule(s) Oral QHS every night at bedtime 06/18/19 023 Inactive d/c 100mg dose aripiprazole 15 mg tablet RxNorm: 618536 1/2 TAB (7.5MG) ORALLY DAILY (DX:MAJOR DEPRESSIVE DISORDER) 06/05/19 023 Inactive pregabalin 100 mg capsule RxNorm: 269533 1 Capsule(s) Oral QAM every morning 06/02/19 023 Inactive Banophen 50 mg capsule RxNorm: 8455989 Take 1 Capsule(s) Oral Q6H every 6 hours as needed 05/19/19 23 No Stop Date Active Novolog Flexpen U-100 Insulin aspart 100 unit/mL (3 mL) subcutaneous RxNorm: 6847981 Inject 10 Unit(s) Subcutaneous QHS every night at bedtime with nighttime snack 04/08/20 022 Inactive Novolog Flexpen U-100 Insulin aspart 100 unit/mL (3 mL) subcutaneous RxNorm: 4966530 Inject 42 Unit(s) Subcutaneous TID in addition to sliding scale 04/08/20 022 Inactive d/c 36u albuterol sulfate HFA 90 mcg/actuation aerosol inhaler RxNorm: 4398716 Take 2 Puff(s) Inhalation Q4H every four hours as needed as needed for SOB, cough, or wheezing 04/07/20 030 Active Banophen 50 mg capsule RxNorm: 0869925 Take 1 Capsule(s) Oral Q6H every 6 hours as needed 04/06/20 023 Inactive diphenhydramine 50 mg tablet RxNorm: 1290524 Take 1 Tablet(s) Oral Q6H every 6 hours as needed 04/06/20 22 022 Inactive diphenhydramine 50 mg tablet RxNorm: 1670817 1 Tablet(s) Oral Q6H every 6 hours as needed 04/06/20 22 022 Inactive Abilify 15 mg tablet RxNorm: 963530 1/2 Tablet(s) Oral QD 03/10/20 22 023 Inactive Shingrix (PF) 50 mcg/0.5 mL intramuscular suspension, kit RxNorm: 8884399 Administer 1/2 Milliliter(s) Intramuscular QD one time shingrix step 2 ( step 1 given 11/04/21) WITH needle - Nursing please administer upon arrival and once administered post a bridge message with date of administration, barrel cleaner, expiration date, and lot# so we can update [facility] 02/18/20 22 022 Inactive dispense with needle Shingrix (PF) 50 mcg/0.5 mL intramuscular suspension, kit RxNorm: 6189568 Administer 1/2 Milliliter(s) Intramuscular QD one time shingrix step 2 ( step 1 given 11/04/21) WITH needle - Nursing please administer upon arrival and once administered post a bridge message with date of administration, barrel cleaner, expiration date, and lot# so we can update [facility] 02/18/20 22 022 Inactive dispense with needle polyethylene glycol 3350 17 gram/dose oral powder RxNorm: 499549 Take 17=1 capful Gram(s) Oral QD mix with 4-8oz of liquid 01/08/20 22 023 Inactive take this in addition to BID prn order Lyrica 100 mg capsule RxNorm: 123816 Take 1 Capsule(s) Oral QAM every morning 01/08/20 22 022 Inactive d/c 50mg dose acetaminophen 500 mg tablet RxNorm: 446904 Take 1 Tablet(s) Oral TID 01/08/20 22 022 Inactive d/c PRN order Lyrica 150 mg capsule RxNorm: 651968 Take 1 Capsule(s) Oral QHS every night at bedtime 01/08/20 22 023 Inactive d/c 100mg dose Abilify 5 mg tablet RxNorm: 441650 Take 1 Tablet(s) Oral QD take 1 tab po QD #30 refill 5 dx: MDD 12/12/19 22 022 Inactive Abilify 5 mg tablet RxNorm: 401535 Take 1 Tablet(s) Oral QD take 1 tab po QD #30 refill 5 dx: MDD 12/12/19 22 022 Inactive Novolog Flexpen U-100 Insulin aspart 100 unit/mL (3 mL) subcutaneous RxNorm: 2299898 Inject 42 Unit(s) Subcutaneous TID in addition to sliding scale 12/10/19 22 022 Inactive d/c 36u chlorthalidone 25 mg tablet RxNorm: 937163 Take 1 Tablet(s) Oral QAM every morning 12/10/19 22 023 Inactive pregabalin 50 mg capsule RxNorm: 021751 Take 1 Capsule(s) Oral QAM every morning 11/12/19 22 022 Inactive tetanus-diphtheria toxoids-Td 2 Lf unit-2 Lf unit/0.5 mL IM suspension RxNorm: 139 Take 0.5 Miscellaneous Intramuscular 11/12/19 22 022 Inactive need tdap - nursing to administer upon arrival pregabalin 50 mg capsule RxNorm: 556676 Take 1 Capsule(s) Oral QAM every morning 10/16/19 22 022 Inactive pregabalin 50 mg capsule RxNorm: 007291 Take 1 Capsule(s) Oral QAM every morning 10/16/19 22 022 Inactive pregabalin 50 mg capsule RxNorm: 972663 1 Capsule(s) Oral QAM every morning 10/15/19 22 022 Inactive Shingrix (PF) 50 mcg/0.5 mL intramuscular suspension, kit RxNorm: 7381663 Administer 1/2 Milliliter(s) Intramuscular one time Nursing please administer upon arrival and once administered post a bridge message with date of administration, barrel cleaner, expiration date, and lot# so we can update [facility]. 10/09/19 22 022 Inactive shingrix step 1 Shingrix (PF) 50 mcg/0.5 mL intramuscular suspension, kit RxNorm: 9435444 Administer 1/2 Milliliter(s) Intramuscular one time Nursing please administer upon arrival and once administered post a bridge message with date of administration, barrel cleaner, expiration date, and lot# so we can update [facility]. 10/09/19 22 Inactive shingrix step 1 cholecalciferol (vitamin D3) 1,250 mcg (50,000 unit) capsule RxNorm: 829944 Take 1 Capsule(s) Oral QW once a [...] aspart 100 unit/mL (3 mL) subcutaneous RxNorm: 2643035 Inject 10 Unit(s) Subcutaneous QHS every night at bedtime with nighttime snack 10/08/19 22 Inactive Shingrix (PF) 50 mcg/0.5 mL intramuscular suspension, kit RxNorm: 1605712 ADMINISTER 2-DOSE SERIES PER CDC GUIDELINES 10/08/19 22 022 Active Shingrix (PF) 50 mcg/0.5 mL intramuscular suspension, kit RxNorm: 3797751 ADMINISTER 2-DOSE SERIES PER CDC GUIDELINES 10/08/19 22 022 Inactive Novolog Flexpen U-100 Insulin aspart 100 unit/mL (3 mL) subcutaneous RxNorm: 4594030 Inject 36 Unit(s) Subcutaneous TID in addition to sliding scale 10/08/19 22 Inactive Novofine Autocover 30 gauge x 1/3 needle RxNorm: Use 1 Miscellaneous UD as directed Use 1 needle as directed to administer insulin 5 times a day Dx:E11.42. 10/03/19 22 022 Inactive ok to substitute with any covered alternative pen needle benzoyl peroxide 10 % topical cleanser RxNorm: 367745 Apply 1 Application Topical QD apply to face, wash rinse and dry once daily (may change to QOD if drying) 08/19/19 22 022 Inactive (%covered by insurance) #60ml refill 11 dx: acne benzoyl peroxide 10 % topical cleanser RxNorm: 700208 Apply 1 Application Topical QD apply to face, wash rinse and dry once daily (may change to QOD if drying) 08/19/19 22 022 Inactive (%covered by insurance) #60ml refill 11 dx: acne benzoyl peroxide 10 % topical cleanser RxNorm: 633456 Apply 1 Application Topical QD apply to face, wash rinse and dry once daily (may change to QOD if drying) 08/19/19 22 022 Inactive (%covered by insurance) #60ml refill 11 dx: acne Lyrica 50 mg capsule RxNorm: 465801 Take 1 Capsule(s) Oral QAM every morning Take 1 capsule by mouth once daily 08/19/19 022 Inactive benzoyl peroxide 10 % topical cleanser RxNorm: 839734 Apply 1 Application Topical QD apply to face, wash rinse and dry once daily (may change to QOD if drying) 08/19/19 022 Inactive (%covered by insurance) #60ml refill 11 dx: acne Lyrica 100 mg capsule RxNorm: 213253 Take 1 Capsule(s) Oral QHS every night at bedtime Take 1 capsule by mouth once daily at bedtime 08/19/19 22 022 Inactive Lyrica 100 mg capsule RxNorm: 398649 Take 1 Capsule(s) Oral QHS every night at bedtime Take 1 capsule by mouth once daily at bedtime 08/16/19 22 022 Inactive Lyrica 50 mg capsule RxNorm: 191948 Take 1 Capsule(s) Oral QAM every morning Take 1 capsule by mouth once daily 08/16/19 22 022 Inactive Levemir FlexTouch U-100 Insulin 100 unit/mL (3 mL) subcutaneous pen RxNorm: 220325 Inject 86 Unit(s) Subcutaneous BID 08/05/19 22 022 Inactive d/c 83units BID Lyrica 100 mg capsule RxNorm: 072342 Take 1 Capsule(s) Oral QHS every night at bedtime Take 1 capsule by mouth once daily at bedtime 07/14/19 22 Inactive Lyrica 50 mg capsule RxNorm: 062544 Take 1 Capsule(s) Oral QAM every morning Take 1 capsule by mouth once daily 07/14/19 22 Inactive Levemir FlexTouch U-100 Insulin 100 unit/mL (3 mL) subcutaneous pen RxNorm: 527463 Inject 83 Unit(s) Subcutaneous BID 07/08/19 22 [...] 4 times daily and as needed. Dx:. 01 Inactive ok to substitute with any covered alternative test strip isosorbide mononitrate ER 30 mg tablet,extended release 24 hr RxNorm: 725913 Take 1 Tablet(s) Oral QD 05/05/20 No Stop Date Active hydralazine 50 mg tablet RxNorm: 091176 Take 1 Tablet(s) Oral QID 05/05/20 Inactive venlafaxine ER 225 mg tablet,extended release 24 hr RxNorm: 912156 Take 1 Tablet(s) Oral QD 05/05/20 Inactive venlafaxine ER 225 mg tablet,extended release 24 hr RxNorm: 291376 Take 1 Tablet(s) Oral QD 05/05/20 Inactive hydralazine 50 mg tablet RxNorm: 413486 Take 1 Tablet(s) Oral QID 05/05/20 Inactive aspirin 81 mg tablet,delayed release RxNorm: 213441 Take 1 Tablet(s) Oral QD 03/31/20 Inactive Zetia 10 mg tablet RxNorm: 175076 Take 1 Tablet(s) Oral QD 03/31/20 Inactive Vitamin D2 1,250 mcg (50,000 unit) capsule RxNorm: 5463869 Take 1 Capsule(s) Oral QW once a week x 12 weeks 03/31/20 Inactive Vitamin D2 1,250 mcg (50,000 unit) capsule RxNorm: 1932622 Take 1 Capsule(s) Oral QW once a week 03/31/20 Inactive Zetia 10 mg tablet RxNorm: 576006 Take 1 Tablet(s) Oral QD 03/31/20 Inactive hydralazine 25 mg tablet RxNorm: 488564 Take 1 Tablet(s) Oral QID 03/31/20 21 Inactive hydralazine 25 mg tablet RxNorm: 049578 Take 1 Tablet(s) Oral QID 03/31/20 Inactive hydralazine 10 mg tablet RxNorm: 214873 Take 1 Tablet(s) Oral QID 03/03/20 021 Inactive cephalexin 500 mg tablet RxNorm: 089740 Take 1 Tablet(s) Oral QID 02/27/20 021 Inactive cephalexin 500 mg tablet RxNorm: 417275 Take 1 Tablet(s) Oral QID 02/27/20 021 Inactive lisinopril 40 mg tablet RxNorm: 949290 Take 1 Tablet(s) Oral QD 02/11/20 023 Inactive Eliquis 5 mg tablet RxNorm: 0018898 Take 1 Tablet(s) Oral BID 01/05/20 21 022 Inactive Eliquis 5 mg tablet RxNorm: 2998538 Take 2 Tablet(s) Oral QD 01/01/20 021 Inactive Lyrica 50 mg capsule RxNorm: 721717 Take 1 Capsule(s) Oral QAM every morning 12/24/19 021 Inactive Lyrica 100 mg capsule RxNorm: 663985 Take 1 Capsule(s) Oral QHS every night at bedtime 12/24/19 021 Inactive clotrimazole 1 % topical cream RxNorm: 005415 Apply to right foot and toes Topical BID 12/04/19 21 023 Inactive metoprolol succinate ER 200 mg tablet,extended release 24 hr RxNorm: 718477 Take 1 Tablet(s) Oral QD 12/04/19 023 Inactive ciprofloxacin 500 mg tablet RxNorm: 948821 Take 1 Tablet(s) Oral QD 11/30/19 021 Inactive DX ofloxacin otic drops Accu-Chek Guide test strips RxNorm: USE 1 TO CHECK GLUCOSE 4 TIMES DAILY AND NEEDED 11/15/19 21 023 Inactive Blood Glucose Test strips RxNorm: Use 1 Test Strip QID at PRN 11/05/19 21 023 Inactive E11.42 lisinopril 30 mg tablet RxNorm: 425709 Take 1 Tablet(s) Oral QD 10/30/19 21 021 Inactive lisinopril 20 mg tablet RxNorm: 975213 Take 1 Tablet(s) Oral QD 10/23/19 21 021 Inactive lisinopril 20 mg tablet RxNorm: 941696 Take 1 Tablet(s) Oral QD 10/23/19 21 021 Inactive lisinopril 10 mg tablet RxNorm: 252023 Take 1 Tablet(s) Oral QD 10/02/19 21 021 Inactive icosapent ethyl 1 gram capsule RxNorm: 4158811 Take 2 Capsule(s) (2 gm) Oral BID with meals 09/12/19 022 Inactive Okay to dispense one 2gm tab if you have that available. icosapent ethyl 1 gram capsule RxNorm: 6573901 Take 2 Capsule(s) Oral BID 09/12/19 021 Inactive Okay to dispense one 2gm tab if you have that available. amlodipine 10 mg tablet RxNorm: 676876 Take 1 Tablet(s) Oral QD 09/04/19 022 Inactive aspirin 81 mg tablet,delayed release RxNorm: 316685 Take 1 Tablet(s) Oral QD 09/04/19 21 021 Inactive Levemir FlexTouch U-100 Insulin 100 unit/mL (3 mL) subcutaneous pen RxNorm: 692275 Inject 150 Unit(s) Subcutaneous BID 09/04/19 21 022 Inactive venlafaxine ER 150 mg tablet,extended release 24 hr RxNorm: 005530 Take 1 Tablet(s) Oral QD 09/04/19 21 021 Inactive clotrimazole-betame thasone 1 %-0.05 % topical cream RxNorm: 429018 Apply to rash on red area on left abdomen/chest Topical BID 08/10/19 21 021 Inactive amlodipine 5 mg tablet RxNorm: 227308 Take 1 Tablet(s) Oral QD 07/31/19 21 021 Inactive cephalexin 500 mg tablet RxNorm: 178722 Take 1 Tablet(s) Oral BID BID - Twice Daily 07/31/19 21 021 Inactive Start 08/01/20 pantoprazole 40 mg tablet,delayed release RxNorm: 027915 Take 1 Tablet(s) Oral QAM every morning 07/08/19 022 Inactive senna 8.6 mg tablet RxNorm: 302058 Take 1 Tablet(s) Oral QD 07/08/19 Inactive pravastatin 80 mg tablet RxNorm: 765022 Take 1 Tablet(s) Oral QHS every night at bedtime 07/08/19 022 Inactive carbamazepine 200 mg tablet RxNorm: 080720 Take 1 Tablet(s) Oral BID 07/08/19 022 Inactive clopidogrel 75 mg tablet RxNorm: 083810 Take 1 Tablet(s) Oral QD 07/08/19 021 Inactive Blood Glucose Test strips RxNorm: Use 1 Test Strip QID at PRN 07/08/19 Inactive E11.42 Novolog Flexpen U-100 Insulin aspart 100 unit/mL (3 mL) subcutaneous RxNorm: 3103992 Administer per sliding scale Milliliter(s) Subcutaneous TID 151-200: 10 u; 201-250: 20 u; 251-300: 30 u; 301-350: 40 u; 351-400: 50 u. 07/08/19 022 Inactive lisinopril 5 mg tablet RxNorm: 830798 Take 1 Tablet(s) Oral QD 07/08/19 Inactive Novolog Flexpen U-100 Insulin aspart 100 unit/mL (3 mL) subcutaneous RxNorm: 1538278 Inject 85 Unit(s) Subcutaneous TID 07/08/19 Inactive clotrimazole 1 % topical cream RxNorm: 555643 Apply to bilateral groin areas Topical BID 07/08/19 21 Inactive metoprolol succinate ER 200 mg tablet,extended release 24 hr RxNorm: 715645 Take 1 Tablet(s) Oral QD 07/08/19 Inactive Vitamin D3 25 mcg (1,000 unit) tablet RxNorm: 262900 Take 1 Tablet(s) Oral QD 07/08/19 021 Inactive isosorbide dinitrate 30 mg tablet RxNorm: 584973 Take 1 Tablet(s) Oral QD 07/08/19 021 Inactive Levemir FlexTouch U-100 Insulin 100 unit/mL (3 mL) subcutaneous pen RxNorm: 913775 Inject 140 Unit(s) Subcutaneous BID 07/08/19 21 021 Inactive torsemide 20 mg tablet RxNorm: 051236 Take 1 Tablet(s) Oral QD 07/08/19 21 023 Inactive venlafaxine 75 mg tablet RxNorm: 123311 Take 1 Tablet(s) Oral QD 07/08/19 021 Inactive acetaminophen 500 mg tablet RxNorm: 983397 Take 1 Tablet(s) Oral TID as needed for headache 06/18/19 21 021 Inactive acetaminophen 500 mg tablet RxNorm: 774536 Take 1 Tablet(s) Oral TID as needed for headache 06/18/19 021 Inactive Lyrica 100 mg capsule RxNorm: 192920 Take 1 Capsule(s) Oral QHS every night at bedtime 06/11/19 21 021 Inactive Lyrica 50 mg capsule RxNorm: 110840 Take 1 Capsule(s) Oral QAM every morning 06/10/19 21 021 Inactive hydrocortisone 2.5 % topical cream RxNorm: 015518 Apply to bilateral groin creases Topical BID 05/15/20 20 021 Inactive clotrimazole 1 % topical cream RxNorm: 355031 Apply to bilateral groin areas Topical BID 05/15/20 20 021 Inactive Lyrica 50 mg capsule RxNorm: 152969 Take 1 Capsule(s) Oral QAM every morning 05/14/20 20 020 Inactive Lyrica 100 mg capsule RxNorm: 663377 Take 1 Capsule(s) Oral QHS every night [...] Inactive Nystop 100,000 unit/gram topical powder RxNorm: 226809 Apply to abd folds, under breasts and L side of groin Topical BID x 14 days, then BID PRN 04/08/20 20 Inactive dx: yeast dermatitis Lyrica 100 mg capsule RxNorm: 087569 Take 1 Capsule(s) Oral QHS every night at bedtime 03/13/20 20 Inactive Lyrica 50 mg capsule RxNorm: 019484 Take 1 Capsule(s) Oral QAM every morning 03/13/20 20 Inactive ketoconazole 2 % shampoo RxNorm: 699284 Apply Topical two times a week with showers 03/11/20 20 Inactive cholecalciferol (vitamin D3) 50 mcg (2,000 unit) tablet RxNorm: 641712 Take 1 Tablet(s) Oral QD 03/11/20 20 Inactive Zetia 10 mg tablet RxNorm: 788585 Take 1 Tablet(s) Oral QD 03/07/20 20 Inactive Zetia 10 mg tablet RxNorm: 265364 Take 1 Tablet(s) Oral QD 03/07/20 20 Inactive Lyrica 50 mg capsule RxNorm: 702123 Take 1 Capsule(s) Oral QAM every morning 02/15/20 20 Inactive Lyrica 100 mg capsule RxNorm: 662343 Take 1 Capsule(s) Oral QHS every night at bedtime 02/15/20 20 Inactive Lyrica 100 mg capsule RxNorm: 273334 Take 1 Capsule(s) Oral QHS every night at bedtime 02/15/20 20 Inactive Lyrica 50 mg capsule RxNorm: 085406 Take 1 Capsule(s) Oral QAM every morning 02/15/20 20 020 Inactive polyethylene glycol 3350 17 gram/dose oral powder RxNorm: 917017 Take 17=1 capful Gram(s) Oral BID as needed mix with 4-8oz of liquid 06/12/19 22 Active metoprolol succinate ER 200 mg tablet,extended release 24 hr RxNorm: 261808 Take 1 Tablet(s) Oral QD 08/12/19 23 Active loperamide 2 mg capsule RxNorm: 989891 Take 1 Capsule(s) Oral QID as needed 06/12/19 22 Active hydralazine 50 mg tablet RxNorm: 042687 Take 1 Tablet(s) Oral QID 08/12/19 23 Active venlafaxine ER 75 mg capsule,extended release 24 hr RxNorm: 480914 Take 3 Capsule(s) Oral QD 06/12/19 22 023 Inactive icosapent ethyl 1 gram capsule RxNorm: 8198572 Take 2 Capsule(s) (2 gm) Oral BID with meals 10/07/19 23 023 Inactive Okay to dispense one 2gm tab if you have that available. Levemir FlexTouch U-100 Insulin 100 unit/mL (3 mL) subcutaneous pen RxNorm: 412353 Inject 80 Unit(s) Subcutaneous BID 07/14/19 23 023 Inactive Novolog Flexpen U-100 Insulin aspart 100 unit/mL (3 mL) subcutaneous RxNorm: 7935582 Insert 30 Unit(s) Subcutaneous TID with meals [...] [facility] WPtel: [phone] [id number] [place] Referral Records Received 09/21/2022 Referral: [facility] [place]Pt[place]: [address] [id number] [place] Referral Completed 05/28/2021 Referral: General Cardiology Referral Complet ed 01/03/2021 Referral: General Psychologist Referral Close d Instructions Comment Date Leonid is a?? Male being seen living at [facility]. Initial [facility] visit 01/2020. PMHx including DMII, CAD w/ 5 stents, Depression, Seizure Disorder and CKD stage 3. He moved into [facility] in 12/2019 but after a hospitalization 05/2021 he moved to the [facility] to have closer nursing attention.??Sister Jyotsna involved in his care cell# [phone]??Guardian: Don (tapan met in person 09/01/21), now has Lexii (same group as don)Lab Schedule: * 02/08/2023
--- OUTSIDE RECORDS SUMMARY | 2023-04-01 08:36 | XMS_ITS | CCD ---
Author Name Sandra Clark CNP Address [address] [place] [address] Phone Organization [facility] Phone Care Team Providers Care Escort Patients Name Role Phone Chelo Fonseca PA-C Primary Care Provider Unavaila ble Chelo Fonseca PA-C Chronic Care Management Nicole archer Summary Purpose DataExchange Insurance Providers Payer name Policy type / Coverage type Covered constitution party ID Effective Begin Date Effective End Date Medicare [place] Medicare Part B [id number] Unknown Unknown Medicaid [place] Medicare Part B [id number] Unknown Unknown Family history Sister Brittany Suggs [...] Prison 09/03/[address]: 9641445 Non-Smoker / No History of Smoking 09/02/[address]: 306722751 No Alcohol Consum ption 09/02/2020 Allergies, Adverse Reactions, Alerts Substance Reaction Codes Entered Date Inactivated Date Status LISINOPRIL RxNorm: 17137 02/12/2020 No Inactive Da te Active Metformin HCl Unknown 02/12/2020 No Inactive Cristiano e Active Problems Condition Codes Effective Dates Condition St atus Annual physical exam ICD-10: Z00.00 ICD-9: V70.0 02/02/2023 Active Coronary artery disease invo lving [place] coronary artery of [place] heart, angina presence unspecified ICD-10: I25.10 ICD-9: 414.01 02/02/2023 Active Encounter for other specifie d special examinations ICD-10: Z01.89 ICD-9: V72.85 02/02/2023 Active Encounter for screening for nutritional disorder ICD-10: Z13.21 ICD-9: V77.99 02/02/2023 Active Hyperlipidemia associated wi th type 2 diabetes mellitus ICD-10: E11.69 ICD-9: 250.80 02/02/2023 Active Other [facility] (current) dr dinesh therapy ICD-10: Z79.899 ICD-9: [...] Fill Instructions pregabalin 150 mg capsule RxNorm: 597428 Take 1 Capsule(s) Oral HS at bed time 02/19/20 23 023 Active pregabalin 100 mg capsule RxNorm: 190722 Take 1 Capsule(s) Oral QAM every morning 02/18/20 23 024 Active FreeStyle Chema 2 Sensor kit RxNorm: use as directed 02/04/20 23 024 Active venlafaxine ER 75 mg capsule,extended release 24 hr RxNorm: 680001 Take 3 Capsule(s) Oral QD 02/04/20 23 023 Inactive FreeStyle Chema 2 Sensor kit RxNorm: use as directed 02/04/20 23 023 Inactive fluconazole 150 mg tablet RxNorm: 572941 Take 1 Tablet(s) Oral on day 3 and on day 6 02/03/20 024 Active chlorthalidone 25 mg tablet RxNorm: 804337 Take 1 Tablet(s) Oral QAM every morning 02/03/20 23 No Stop Date Active venlafaxine ER 150 mg capsule,extended release 24 hr RxNorm: 913745 Take 1 Capsule(s) Oral QD 02/03/20 23 023 Inactive acetaminophen 500 mg tablet RxNorm: 528904 1 TABLET ORALLY 3 TIMES DAILY (MAX APAP:4GM/24HR) 12/15/19 23 024 Active potassium chloride ER 20 mEq tablet,extended release RxNorm: 641504 Take 1 Tablet(s) Oral BID 12/09/19 23 023 Active d/c 20mEq once daily (sent from hospital) clotrimazole 1 % topical cream RxNorm: 171196 apply 1g topically to top of feet and in between toes BID 12/09/19 23 023 Active nystatin 100,000 unit/gram topical powder RxNorm: 064896 APPLY TO AFFECTED AREAS TOPICALLY 2 TIMES DAILY 11/21/19 23 024 Active Nystop 100,000 unit/gram topical powder RxNorm: 035717 Apply to abd folds, under breasts and L side of groin Topical BID x 14 days, then BID PRN 11/20/19 23 023 Inactive dx: yeast dermatitis Bengay Ultra Strength 4 %-30 %-10 % topical cream RxNorm: 280697 Apply 1 Gram(s) Topical QID PRN to feet and legs for neuropathic pain 11/11/19 024 Active hydrocortisone 2.5 % topical cream RxNorm: 474896 Apply 1/2 Gram(s) Topical BID as needed 11/10/19 No Stop Date Active clotrimazole 1 % topical cream RxNorm: 410709 Apply 1/2 Gram(s) Topical BID Apply to affected areas of groin, periarea, and abdominal topically 2 times daily 11/10/19 023 Inactive Levemir FlexPen 100 unit/mL (3 mL) solution subcutaneous insulin pen RxNorm: 861131 Inject 30 Unit(s) Subcutaneous BID 10/07/19 024 Active Humulin R U-500 (Concentrated) Insulin 500 unit/mL subcutaneous soln RxNorm: 785984 Inject 100 Unit(s) Subcutaneous TID 10/07/19 024 Active Ozempic 0.25 mg or 0.5 mg (2 mg/3 mL) subcutaneous pen injector RxNorm: 7473954 Inject 1/2 Milligram(s) Subcutaneous QW once a week 10/07/19 024 Active aripiprazole 15 mg tablet RxNorm: 100043 1/2 TAB (7.5MG) ORALLY DAILY (DX:MAJOR DEPRESSIVE DISORDER) 09/23/19 023 Active Accu-Chek Guide test strips RxNorm: Use 1 Test Strip QID 09/15/19 23 024 Active ok to substitute with any covered alternative test strip Lancets,Thin 28 gauge RxNorm: Use 1 as directed QID 09/15/19 23 024 Active torsemide 20 mg tablet RxNorm: 345284 Take 1 Tablet(s) Oral BID 09/09/19 23 024 Active d/c once daily dosing carvedilol 25 mg tablet RxNorm: 334983 Take 1 Tablet(s) Oral QD 08/25/19 23 024 Active pregabalin 150 mg capsule RxNorm: 030637 1 Capsule(s) Oral HS at bed time 08/18/19 023 Inactive pregabalin 100 mg capsule RxNorm: 472325 1 Capsule(s) Oral QAM every morning 08/18/19 23 023 Inactive carvedilol 25 mg tablet RxNorm: 235472 1 Tablet(s) Oral QD 07/28/19 23 023 Inactive lisinopril 20 mg tablet RxNorm: 046455 Give 1 Tablet(s) Oral QD 07/28/19 23 023 Inactive Lyrica 150 mg capsule RxNorm: 110631 Take 1 Capsule(s) Oral QHS every night at bedtime 07/19/19 023 Inactive d/c 100mg dose Diflucan 150 mg tablet RxNorm: 169026 Take 1 Tablet(s) Oral QD repeat on day 3 and 6 07/19/19 023 Inactive pregabalin 100 mg capsule RxNorm: 883359 Take 1 Capsule(s) Oral QAM every morning 07/19/19 023 Inactive gatifloxacin 0.5 % eye drops RxNorm: 556590 Instill 1 Drop(s) as directed TID Instill 1 drop in to affected eye(s) starting 1 day prior to surgery and continue until gone (do not exceed 4 weeks). 07/13/19 23 023 Inactive carvedilol 25 mg tablet RxNorm: 181432 2 Tablet(s) Oral BID 07/13/19 023 Inactive Humulin R Regular U-100 Insulin 100 unit/mL injection solution RxNorm: 463995 85 Unit(s) Injection TID 07/13/19 23 023 Inactive ketorolac 0.5 % eye drops RxNorm: 105495 Instill 1 Drop(s) as directed QID Instill 1 drop into affected eye(s) 4 times daily starting 1 day prior to surgery and continue until gone (do not exceed 4 weeks). 07/13/19 23 023 Inactive Diflucan 150 mg tablet RxNorm: 322394 Take 1 Tablet(s) Oral QD repeat on day 3 and 6 06/30/19 23 023 Inactive Accu-Chek Guide test strips RxNorm: Use 1 Test Strip QID Use 1 test strip to monitor blood glucose 4 times daily and as needed. Dx:E11.42. 06/23/19 23 023 Inactive ok to substitute with any covered alternative test strip dextromethorphan-gu aifenesin 10 mg-100 mg/5 mL oral liquid RxNorm: 080209 Take 10 Milliliter(s) Oral every 4 hours as needed for cough 06/19/19 23 023 Inactive dextromethorphan-gu aifenesin 10 mg-100 mg/5 mL oral liquid RxNorm: 232291 Take 10 Milliliter(s) Oral every 4 hours as needed for cough 06/19/19 023 Inactive Lyrica 150 mg capsule RxNorm: 510278 Take 1 Capsule(s) Oral QHS every night at bedtime 06/18/19 023 Inactive d/c 100mg dose aripiprazole 15 mg tablet RxNorm: 915292 1/2 TAB (7.5MG) ORALLY DAILY (DX:MAJOR DEPRESSIVE DISORDER) 06/05/19 023 Inactive pregabalin 100 mg capsule RxNorm: 095266 1 Capsule(s) Oral QAM every morning 06/02/19 23 023 Inactive Banophen 50 mg capsule RxNorm: 8252742 Take 1 Capsule(s) Oral Q6H every 6 hours as needed 05/19/19 23 No Stop Date Active Novolog Flexpen U-100 Insulin aspart 100 unit/mL (3 mL) subcutaneous RxNorm: 2357477 Inject 10 Unit(s) Subcutaneous QHS every night at bedtime with nighttime snack 04/08/20 022 Inactive Novolog Flexpen U-100 Insulin aspart 100 unit/mL (3 mL) subcutaneous RxNorm: 7069923 Inject 42 Unit(s) Subcutaneous TID in addition to sliding scale 04/08/20 022 Inactive d/c 36u albuterol sulfate HFA 90 mcg/actuation aerosol inhaler RxNorm: 9056751 Take 2 Puff(s) Inhalation Q4H every four hours as needed as needed for SOB, cough, or wheezing 04/07/20 22 030 Active Banophen 50 mg capsule RxNorm: 1669187 Take 1 Capsule(s) Oral Q6H every 6 hours as needed 04/06/20 22 023 Inactive diphenhydramine 50 mg tablet RxNorm: 6066828 Take 1 Tablet(s) Oral Q6H every 6 hours as needed 04/06/20 22 022 Inactive diphenhydramine 50 mg tablet RxNorm: 7246328 1 Tablet(s) Oral Q6H every 6 hours as needed 04/06/20 22 022 Inactive Abilify 15 mg tablet RxNorm: 953664 1/2 Tablet(s) Oral QD 03/10/20 023 Inactive Shingrix (PF) 50 mcg/0.5 mL intramuscular suspension, kit RxNorm: 4048699 Administer 1/2 Milliliter(s) Intramuscular QD one time shingrix step 2 ( step 1 given 11/04/21) WITH needle - Nursing please administer upon arrival and once administered 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, 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, 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, and lot# so we can update [facility] 02/18/20 22 022 Inactive dispense with needle Shingrix (PF) 50 mcg/0.5 mL intramuscular suspension, kit RxNorm: 1012074 Administer 1/2 Milliliter(s) Intramuscular QD one time shingrix step 2 ( step 1 given 11/04/21) WITH needle - Nursing please administer upon arrival and once administered 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, 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, 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, and lot# so we can update [facility] 02/18/20 22 022 Inactive dispense with needle polyethylene glycol 3350 17 gram/dose oral powder RxNorm: 263552 Take 17=1 capful Gram(s) Oral QD mix with 4-8oz of liquid 01/08/20 22 023 Inactive take this in addition to BID prn order Lyrica 100 mg capsule RxNorm: 064818 Take 1 Capsule(s) Oral QAM every morning 01/08/20 22 022 Inactive d/c 50mg dose acetaminophen 500 mg tablet RxNorm: 621740 Take 1 Tablet(s) Oral TID 01/08/20 22 022 Inactive d/c PRN order Lyrica 150 mg capsule RxNorm: 119707 Take 1 Capsule(s) Oral QHS every night at bedtime 01/08/20 22 023 Inactive d/c 100mg dose Abilify 5 mg tablet RxNorm: 548033 Take 1 Tablet(s) Oral QD take 1 tab po QD #30 refill 5 dx: MDD 12/12/19 22 022 Inactive Abilify 5 mg tablet RxNorm: 404038 Take 1 Tablet(s) Oral QD take 1 tab po QD #30 refill 5 dx: MDD 12/12/19 22 022 Inactive Novolog Flexpen U-100 Insulin aspart 100 unit/mL (3 mL) subcutaneous RxNorm: 6007165 Inject 42 Unit(s) Subcutaneous TID in addition to sliding scale 12/10/19 22 022 Inactive d/c 36u chlorthalidone 25 mg tablet RxNorm: 994084 Take 1 Tablet(s) Oral QAM every morning 12/10/19 22 023 Inactive pregabalin 50 mg capsule RxNorm: 515905 Take 1 Capsule(s) Oral QAM every morning 11/12/19 22 022 Inactive tetanus-diphtheria toxoids-Td 2 Lf unit-2 Lf unit/0.5 mL IM suspension RxNorm: 139 Take 0.5 Miscellaneous Intramuscular 11/12/19 22 022 Inactive need tdap - nursing to administer upon arrival pregabalin 50 mg capsule RxNorm: 782669 Take 1 Capsule(s) Oral QAM every morning 10/16/19 22 022 Inactive pregabalin 50 mg capsule RxNorm: 271841 Take 1 Capsule(s) Oral QAM every morning 10/16/19 22 022 Inactive pregabalin 50 mg capsule RxNorm: 169108 1 Capsule(s) Oral QAM every morning 10/15/19 22 022 Inactive Shingrix (PF) 50 mcg/0.5 mL intramuscular suspension, kit RxNorm: 1008417 Administer 1/2 Milliliter(s) Intramuscular one time Nursing please administer upon arrival and once administered post a 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 10/09/19 22 022 Inactive shingrix step 1 cholecalciferol (vitamin D3) 1,250 mcg (50,000 unit) capsule RxNorm: 530542 Take 1 Capsule(s) Oral QW once a [...] aspart 100 unit/mL (3 mL) subcutaneous RxNorm: 9480019 Inject 10 Unit(s) Subcutaneous QHS every night at bedtime with nighttime snack 10/08/19 22 Inactive Shingrix (PF) 50 mcg/0.5 mL intramuscular suspension, kit RxNorm: 5533919 ADMINISTER 2-DOSE SERIES PER CDC GUIDELINES 10/08/19 22 022 Active Shingrix (PF) 50 mcg/0.5 mL intramuscular suspension, kit RxNorm: 8733871 ADMINISTER 2-DOSE SERIES PER CDC GUIDELINES 10/08/19 22 022 Inactive Novolog Flexpen U-100 Insulin aspart 100 unit/mL (3 mL) subcutaneous RxNorm: 1929571 Inject 36 Unit(s) Subcutaneous TID in addition to sliding scale 10/08/19 22 Inactive Novofine Autocover 30 gauge x 1/3 needle RxNorm: Use 1 Miscellaneous UD as directed Use 1 needle as directed to administer insulin 5 times a day Dx:E11.42. 10/03/19 22 Inactive ok to substitute with any covered alternative pen needle benzoyl peroxide 10 % topical cleanser RxNorm: 534109 Apply 1 Application Topical QD apply to face, wash rinse and dry once daily (may change to QOD if drying) 08/19/19 22 022 Inactive (%covered by insurance) #60ml refill 11 dx: acne benzoyl peroxide 10 % topical cleanser RxNorm: 152775 Apply 1 Application Topical QD apply to face, wash rinse and dry once daily (may change to QOD if drying) 08/19/19 22 022 Inactive (%covered by insurance) #60ml refill 11 dx: acne benzoyl peroxide 10 % topical cleanser RxNorm: 752220 Apply 1 Application Topical QD apply to face, wash rinse and dry once daily (may change to QOD if drying) 08/19/19 022 Inactive (%covered by insurance) #60ml refill 11 dx: acne Lyrica 50 mg capsule RxNorm: 471334 Take 1 Capsule(s) Oral QAM every morning Take 1 capsule by mouth once daily 08/19/19 022 Inactive benzoyl peroxide 10 % topical cleanser RxNorm: 246606 Apply 1 Application Topical QD apply to face, wash rinse and dry once daily (may change to QOD if drying) 08/19/19 22 022 Inactive (%covered by insurance) #60ml refill 11 dx: acne Lyrica 100 mg capsule RxNorm: 206581 Take 1 Capsule(s) Oral QHS every night at bedtime Take 1 capsule by mouth once daily at bedtime 08/19/19 22 022 Inactive Lyrica 100 mg capsule RxNorm: 229640 Take 1 Capsule(s) Oral QHS every night at bedtime Take 1 capsule by mouth once daily at bedtime 08/16/19 22 Inactive Lyrica 50 mg capsule RxNorm: 718717 Take 1 Capsule(s) Oral QAM every morning Take 1 capsule by mouth once daily 08/16/19 22 022 Inactive Levemir FlexTouch U-100 Insulin 100 unit/mL (3 mL) subcutaneous pen RxNorm: 983667 Inject 86 Unit(s) Subcutaneous BID 08/05/19 22 022 Inactive d/c 83units BID Lyrica 100 mg capsule RxNorm: 984941 Take 1 Capsule(s) Oral QHS every night at bedtime Take 1 capsule by mouth once daily at bedtime 07/14/19 22 Inactive Lyrica 50 mg capsule RxNorm: 486147 Take 1 Capsule(s) Oral QAM every morning Take 1 capsule by mouth once daily 07/14/19 22 022 Inactive Levemir FlexTouch U-100 Insulin 100 unit/mL (3 mL) subcutaneous pen RxNorm: 430631 Inject 83 Unit(s) Subcutaneous BID 07/08/19 22 [...] 30 mg tablet,extended release 24 hr RxNorm: 448995 Take 1 Tablet(s) Oral QD 05/05/20 No Stop Date Active hydralazine 50 mg tablet RxNorm: 378036 Take 1 Tablet(s) Oral QID 05/05/20 Inactive venlafaxine ER 225 mg tablet,extended release 24 hr RxNorm: 804712 Take 1 Tablet(s) Oral QD 05/05/20 Inactive venlafaxine ER 225 mg tablet,extended release 24 hr RxNorm: 614377 Take 1 Tablet(s) Oral QD 05/05/20 022 Inactive hydralazine 50 mg tablet RxNorm: 527248 Take 1 Tablet(s) Oral QID 05/05/20 Inactive aspirin 81 mg tablet,delayed release RxNorm: 639424 Take 1 Tablet(s) Oral QD 03/31/20 Inactive Zetia 10 mg tablet RxNorm: 114774 Take 1 Tablet(s) Oral QD 03/31/20 Inactive Vitamin D2 1,250 mcg (50,000 unit) capsule RxNorm: 5682046 Take 1 Capsule(s) Oral QW once a week x 12 weeks 03/31/20 022 Inactive Vitamin D2 1,250 mcg (50,000 unit) capsule RxNorm: 8874722 Take 1 Capsule(s) Oral QW once a week 03/31/20 Inactive Zetia 10 mg tablet RxNorm: 483950 Take 1 Tablet(s) Oral QD 03/31/20 Inactive hydralazine 25 mg tablet RxNorm: 964434 Take 1 Tablet(s) Oral QID 03/31/20 021 Inactive hydralazine 25 mg tablet RxNorm: 864177 Take 1 Tablet(s) Oral QID 03/31/20 021 Inactive hydralazine 10 mg tablet RxNorm: 233248 Take 1 Tablet(s) Oral QID 03/03/20 021 Inactive cephalexin 500 mg tablet RxNorm: 352861 Take 1 Tablet(s) Oral QID 02/27/20 021 Inactive cephalexin 500 mg tablet RxNorm: 843690 Take 1 Tablet(s) Oral QID 02/27/20 021 Inactive lisinopril 40 mg tablet RxNorm: 135588 Take 1 Tablet(s) Oral QD 02/11/20 023 Inactive Eliquis 5 mg tablet RxNorm: 1302537 Take 1 Tablet(s) Oral BID 01/05/20 21 022 Inactive Eliquis 5 mg tablet RxNorm: 1994777 Take 2 Tablet(s) Oral QD 01/01/20 21 021 Inactive Lyrica 50 mg capsule RxNorm: 194544 Take 1 Capsule(s) Oral QAM every morning 12/24/19 021 Inactive Lyrica 100 mg capsule RxNorm: 928131 Take 1 Capsule(s) Oral QHS every night at bedtime 12/24/19 021 Inactive clotrimazole 1 % topical cream RxNorm: 779108 Apply to right foot and toes Topical BID 12/04/19 21 023 Inactive metoprolol succinate ER 200 mg tablet,extended release 24 hr RxNorm: 183372 Take 1 Tablet(s) Oral QD 12/04/19 21 023 Inactive ciprofloxacin 500 mg tablet RxNorm: 986657 Take 1 Tablet(s) Oral QD 11/30/19 21 021 Inactive DX ofloxacin otic drops Accu-Chek Guide test strips RxNorm: USE 1 TO CHECK GLUCOSE 4 TIMES DAILY AND NEEDED 11/15/19 21 023 Inactive Blood Glucose Test strips RxNorm: Use 1 Test Strip QID at PRN 11/05/19 21 023 Inactive E11.42 lisinopril 30 mg tablet RxNorm: 604578 Take 1 Tablet(s) Oral QD 10/30/19 Inactive lisinopril 20 mg tablet RxNorm: 917939 Take 1 Tablet(s) Oral QD 10/23/19 21 Inactive lisinopril 20 mg tablet RxNorm: 124265 Take 1 Tablet(s) Oral QD 10/23/19 21 Inactive lisinopril 10 mg tablet RxNorm: 832336 Take 1 Tablet(s) Oral QD 10/02/19 021 Inactive icosapent ethyl 1 gram capsule RxNorm: 9072013 Take 2 Capsule(s) (2 gm) Oral BID with meals 09/12/19 022 Inactive Okay to dispense one 2gm tab if you have that available. icosapent ethyl 1 gram capsule RxNorm: 2633808 Take 2 Capsule(s) Oral BID 09/12/19 021 Inactive Okay to dispense one 2gm tab if you have that available. amlodipine 10 mg tablet RxNorm: 790575 Take 1 Tablet(s) Oral QD 09/04/19 022 Inactive aspirin 81 mg tablet,delayed release RxNorm: 773264 Take 1 Tablet(s) Oral QD 09/04/19 Inactive Levemir FlexTouch U-100 Insulin 100 unit/mL (3 mL) subcutaneous pen RxNorm: 520064 Inject 150 Unit(s) Subcutaneous BID 09/04/19 022 Inactive venlafaxine ER 150 mg tablet,extended release 24 hr RxNorm: 381287 Take 1 Tablet(s) Oral QD 09/04/19 021 Inactive clotrimazole-betame thasone 1 %-0.05 % topical cream RxNorm: 288719 Apply to rash on red area on left abdomen/chest Topical BID 08/10/19 21 021 Inactive amlodipine 5 mg tablet RxNorm: 215102 Take 1 Tablet(s) Oral QD 07/31/19 21 021 Inactive cephalexin 500 mg tablet RxNorm: 399154 Take 1 Tablet(s) Oral BID BID - Twice Daily 07/31/19 21 021 Inactive Start 08/01/20 pantoprazole 40 mg tablet,delayed release RxNorm: 518257 Take 1 Tablet(s) Oral QAM every morning 07/08/19 Inactive senna 8.6 mg tablet RxNorm: 774263 Take 1 Tablet(s) Oral QD 07/08/19 Inactive pravastatin 80 mg tablet RxNorm: 010260 Take 1 Tablet(s) Oral QHS every night at bedtime 07/08/19 Inactive carbamazepine 200 mg tablet RxNorm: 810617 Take 1 Tablet(s) Oral BID 07/08/19 Inactive clopidogrel 75 mg tablet RxNorm: 200146 Take 1 Tablet(s) Oral QD 07/08/19 Inactive Blood Glucose Test strips RxNorm: Use 1 Test Strip QID at PRN 07/08/19 Inactive E11.42 Novolog Flexpen U-100 Insulin aspart 100 unit/mL (3 mL) subcutaneous RxNorm: 6198990 Administer per sliding scale Milliliter(s) Subcutaneous TID 151-200: 10 u; 201-250: 20 u; 251-300: 30 u; 301-350: 40 u; 351-400: 50 u. 07/08/19 21 Inactive lisinopril 5 mg tablet RxNorm: 382103 Take 1 Tablet(s) Oral QD 07/08/19 Inactive Novolog Flexpen U-100 Insulin aspart 100 unit/mL (3 mL) subcutaneous RxNorm: 5216910 Inject 85 Unit(s) Subcutaneous TID 07/08/19 022 Inactive clotrimazole 1 % topical cream RxNorm: 161080 Apply to bilateral groin areas Topical BID 07/08/19 Inactive metoprolol succinate ER 200 mg tablet,extended release 24 hr RxNorm: 910101 Take 1 Tablet(s) Oral QD 07/08/19 Inactive Vitamin D3 25 mcg (1,000 unit) tablet RxNorm: 193088 Take 1 Tablet(s) Oral QD 07/08/19 21 021 Inactive isosorbide dinitrate 30 mg tablet RxNorm: 147766 Take 1 Tablet(s) Oral QD 07/08/19 021 Inactive Levemir FlexTouch U-100 Insulin 100 unit/mL (3 mL) subcutaneous pen RxNorm: 180920 Inject 140 Unit(s) Subcutaneous BID 07/08/19 21 021 Inactive torsemide 20 mg tablet RxNorm: 793599 Take 1 Tablet(s) Oral QD 07/08/19 21 023 Inactive venlafaxine 75 mg tablet RxNorm: 791737 Take 1 Tablet(s) Oral QD 07/08/19 021 Inactive acetaminophen 500 mg tablet RxNorm: 035299 Take 1 Tablet(s) Oral TID as needed for headache 06/18/19 Inactive acetaminophen 500 mg tablet RxNorm: 910804 Take 1 Tablet(s) Oral TID as needed for headache 06/18/19 021 Inactive Lyrica 100 mg capsule RxNorm: 118574 Take 1 Capsule(s) Oral QHS every night at bedtime 06/11/19 021 Inactive Lyrica 50 mg capsule RxNorm: 332416 Take 1 Capsule(s) Oral QAM every morning 06/10/19 21 021 Inactive hydrocortisone 2.5 % topical cream RxNorm: 702415 Apply to bilateral groin creases Topical BID 05/15/20 20 021 Inactive clotrimazole 1 % topical cream RxNorm: 333016 Apply to bilateral groin areas Topical BID 05/15/20 20 021 Inactive Lyrica 50 mg capsule RxNorm: 744806 Take 1 Capsule(s) Oral QAM every morning 05/14/20 20 020 Inactive Lyrica 100 mg capsule RxNorm: 549336 Take 1 Capsule(s) Oral QHS every night [...] Inactive Nystop 100,000 unit/gram topical powder RxNorm: 686434 Apply to abd folds, under breasts and L side of groin Topical BID x 14 days, then BID PRN 04/08/20 20 Inactive dx: yeast dermatitis Lyrica 100 mg capsule RxNorm: 451108 Take 1 Capsule(s) Oral QHS every night at bedtime 03/13/20 20 Inactive Lyrica 50 mg capsule RxNorm: 610100 Take 1 Capsule(s) Oral QAM every morning 03/13/20 20 Inactive ketoconazole 2 % shampoo RxNorm: 076630 Apply Topical two times a week with showers 03/11/20 20 Inactive cholecalciferol (vitamin D3) 50 mcg (2,000 unit) tablet RxNorm: 483772 Take 1 Tablet(s) Oral QD 03/11/20 20 021 Inactive Zetia 10 mg tablet RxNorm: 673819 Take 1 Tablet(s) Oral QD 03/07/20 20 021 Inactive Zetia 10 mg tablet RxNorm: 059786 Take 1 Tablet(s) Oral QD 03/07/20 20 Inactive Lyrica 50 mg capsule RxNorm: 348826 Take 1 Capsule(s) Oral QAM every morning 02/15/20 20 Inactive Lyrica 100 mg capsule RxNorm: 667981 Take 1 Capsule(s) Oral QHS every night at bedtime 02/15/20 20 10/01/2 020 Inactive Lyrica 100 mg capsule RxNorm: 853885 Take 1 Capsule(s) Oral QHS every night at bedtime 02/15/20 20 020 Inactive Lyrica 50 mg capsule RxNorm: 034402 Take 1 Capsule(s) Oral QAM every morning 02/15/20 20 020 Inactive polyethylene glycol 3350 17 gram/dose oral powder RxNorm: 646177 Take 17=1 capful Gram(s) Oral BID as needed mix with 4-8oz of liquid 06/12/19 22 Active metoprolol succinate ER 200 mg tablet,extended release 24 hr RxNorm: 575670 Take 1 Tablet(s) Oral QD 08/12/19 23 Active loperamide 2 mg capsule RxNorm: 235802 Take 1 Capsule(s) Oral QID as needed 06/12/19 22 Active hydralazine 50 mg tablet RxNorm: 190801 Take 1 Tablet(s) Oral QID 08/12/19 23 Active venlafaxine ER 75 mg capsule,extended release 24 hr RxNorm: 461864 Take 3 Capsule(s) Oral QD 06/12/19 22 023 Inactive icosapent ethyl 1 gram capsule RxNorm: 3290179 Take 2 Capsule(s) (2 gm) Oral BID with meals 10/07/19 23 023 Inactive Okay to dispense one 2gm tab if you have that available. Levemir FlexTouch U-100 Insulin 100 unit/mL (3 mL) subcutaneous pen RxNorm: 232484 Inject 80 Unit(s) Subcutaneous BID 07/14/19 23 023 Inactive Novolog Flexpen U-100 Insulin aspart 100 unit/mL (3 mL) subcutaneous RxNorm: 1055201 Insert 30 Unit(s) Subcutaneous TID with meals [...] Completed 02/18/2023 Appointment: Sandra Clark WPtel: [phone] [facility] [address] [id number] Telehealth Psych Follow Up 12/09 Appointment: Tapan Shirley WPtel: [address] [facility] [address] [id number] [facility] 10/26/2022 Referral: [facility] WPtel: [phone], [address] [id number] [place] Referral Records Received 09/21/2022 Appointment: Tapan Shirley WPtel: [phone] [place] F/U 08/11/2022 Appointment: Tapan Shirley WPtel: [address] [facility] [address] [id number] [place] F/U 07/14/2022 Appointment: Tapan Shirley WPtel: [address] [facility] [address] [id number] [place] F/U 02/10/2022 Referral: [facility] WPtel: [address] [id number] [place] Referral Completed 05/28/2021 Referral: General Cardiology Referral Complet ed 01/03/2021 Referral: General Psychologist Referral Close d Instructions Comment Date Leonid is a?? Male being seen living at [facility]. Initial BPS visit 01/2020. PMHx including DMII, CAD w/ 5 stents, Depression, Seizure Disorder and CKD stage 3. He moved into [facility] in 12/2019 but after a hospitalization 05/2021 he moved to the [facility] to have closer nursing attention.??Sister Jyotsna involved in his care cell# [phone]??Guardian: Giulia (tapan met in person 09/01/21), now has Lexii (same group as giulia)Lab Schedule: * 02/08/2023
--- OUTSIDE RECORDS SUMMARY | 2023-04-01 08:37 | XMS_ITS | CCD ---
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 03/11/20 021 Inactive Zetia 10 mg tablet RxNorm: 847298 Take 1 Tablet(s) Oral QD 03/07/20 021 Inactive Zetia 10 mg tablet RxNorm: 098890 Take 1 Tablet(s) Oral QD 03/07/20 20 Inactive Lyrica 50 mg capsule RxNorm: 340606 Take 1 Capsule(s) Oral QAM every morning 02/15/20 Inactive Lyrica 100 mg capsule RxNorm: 998443 Take 1 Capsule(s) Oral QHS every night at bedtime 02/15/20 Inactive Lyrica 100 mg capsule RxNorm: 791214 Take 1 Capsule(s) Oral QHS every night at bedtime 02/15/20 Inactive Lyrica 50 mg capsule RxNorm: 096080 Take 1 Capsule(s) Oral QAM every morning 02/15/20 Inactive polyethylene glycol 3350 17 gram/dose oral powder RxNorm: 864771 Take 17=1 capful Gram(s) Oral BID as needed mix with 4-8oz of liquid 06/12/19 22 Active metoprolol succinate ER 200 mg tablet,extended release 24 hr RxNorm: 549624 Take 1 Tablet(s) Oral QD 08/12/19 23 Active loperamide 2 mg capsule RxNorm: 786698 Take 1 Capsule(s) Oral QID as needed 06/12/19 22 Active hydralazine 50 mg tablet RxNorm: 164726 Take 1 Tablet(s) Oral QID 08/12/19 23 Active venlafaxine ER 75 mg capsule,extended release 24 hr RxNorm: 895437 Take 3 Capsule(s) Oral QD 06/12/19 22 023 Inactive icosapent ethyl 1 gram capsule RxNorm: 7834534 Take 2 Capsule(s) (2 gm) Oral BID with meals 10/07/19 23 023 Inactive Okay to dispense one 2gm tab if you have that available. Levemir FlexTouch U-100 Insulin 100 unit/mL (3 mL) subcutaneous pen RxNorm: 898310 Inject 80 Unit(s) Subcutaneous BID 07/14/19 23 023 Inactive Novolog Flexpen U-100 Insulin aspart 100 unit/mL (3 mL) subcutaneous RxNorm: 1550978 Insert 30 Unit(s) Subcutaneous TID with meals 10/08/19 22 022 Inactive Medication Administered No Medication Administered data Vital Signs Date Vital 03/10/2023 Height: 5'5 Code: 8302-2 Weight : Code: 3141-9 Reason For Visit No Reason For Visit data Encounters Encounter Performer Location Location Address Codes Date ([address]) Home or Residence Visit Est Pt - Moderate Level, 40 mins Diagnosis: Hyperlipidemia, unspecified[ICD10: E78.5] Diagnosis: Candidal intertrigo[ICD10: B37.2] Diagnosis: BMI 60.0-69.9, adult[ICD10: Z68.44] Diagnosis: Type 2 diabetes mellitus with diabetic polyneuropathy, with long-term current use of insulin[ICD10: E11.42] Diagnosis: Hyperlipidemia associated with type 2 diabetes mellitus[ICD10: E11.69] Diagnosis: Stage 2 chronic 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[ICD10: E11.22] Chelo Fonseca [facility] [place] [address] [address] [place] [id number] CPT-4: 48364 03/10/2023 Plan of Care Planned Activity Notes Codes Status Date Care Plan: Lipid Panel (LP) draw the week of 04/01/23 Pending 03/12/2023 Patient Education: Patient Medication Summary Completed 03/10/2023 Patient Education: Influenza Completed 03/10/2023 Appointment: Sandra Clark WPtel: [address] [phone] Telehealth Psych Fol low Up 12/09/2022 Appointment: Tapan Shirley WPtel: [address] [phone] TCM 10/26/2022 Referral: [facility] Nathan WPtel: [phone], [address] [id number] Referral Records Received 09/21/2022 Appointment: Tapan Shirley WPtel: [address] [facility] [address] [id number] [place] F/U 08/11/2022 Appointment: Tapan Shirley WPtel: [address] [facility] [address] [id number] [place] F/U 07/14/2022 Appointment: Tapan Shirley WPtel: [address] [facility] [address] [id number] [place] F/U 02/10/2022 Referral: [facility] WPtel: [address] [facility] [address] [id number] [place] Referral Completed 05/28/2021 Referral: General Cardiology Referral Completed 01/03/2021 Referral: General Psychologist Referral Closed Referral: General Psychiatrist Referral Need Additional Information From Field Instructions Comment Date Leonid is a?? Male [...] attention.??Sister Jyotsna involved in his care cell# [phone]??Guardian: Giulia (tapan met in person 09/01/21), now has Lexii (same group as giulia)Lab Schedule: * 02/08/2023 Hyperlipidemia Lab order: FLP?? Diabetes DM2: High dose insulin. Needs to follow up with endocrinology. Staff aware and have been instructed to help set up an appointment.?? Continue mealtime insulin 100U TID?? Continue Levemir 30U BID HLD: Trigs >1500. Discussed dangers of severely elevated lipids and tryglicerides.?? He makes poor dietary choices but is [...] around the house and exercise as tolerated. On ozempic . 03/10/2023
--- OUTSIDE RECORDS SUMMARY | 2023-04-01 08:37 | XMS_ITS | CCD ---
Author Name Unknown Organization Unknown Care Team Providers Care General Technician Name Role Phone Chelo Fonseca PA-C Primary Care Provider Unavaila ble Chelo Fonseca PA-C Chronic Care Management Nicole archer Summary Purpose DataExchange Insurance Providers Payer name Policy type / Coverage type Covered democrat ID Effective Begin Date Effective End Date [place] [id number] Unknown Unknown [place] Part B [id number] Unknown Unknown Family history Sister Brittany Suggs [...] Mcfp 09/03/[address]: 3949452 Non-Smoker / No History of Smoking 09/02/[address]: [id number] No Alcohol Consum ption 09/02/2020 Allergies, Adverse Reactions, Alerts Substance Reaction Codes Entered Date Inactivated Date Status LISINOPRIL RxNorm: 31467 02/12/2020 No Inactive Da te Active Metformin [...] F33. 9 ICD-9: 296.30 03/03/2023 Active Other retirement (current) dr ug therapy ICD-10: Z79.899 ICD-9: V58.69 03/03/2023 Active Recurrent major depressive disorder, in partial remission ICD-10: F33.41 ICD-9: 296.35 03/03/2023 Active Coronary artery disease invo lving [place] coronary artery of [place] heart, angina presence unspecified ICD-10: I25.10 ICD-9: [...] immunization ICD-10: Z23 ICD-9: V03.89 02/10/2022 Resolved USP (current) use of insulin ICD-10: Z79.4 02/10 [...] Instructions clotrimazole 1 % topical cream RxNorm: 540562 Take apply topically to abdominal folds twice daily for 14 days 03/12/20 23 023 Active Ozempic 1 mg/dose (4 mg/3 mL) subcutaneous pen injector RxNorm: 8145031 Inject 1 Milligram(s) Subcutaneous QW once a week 03/11/20 23 023 Inactive rosuvastatin 20 mg tablet RxNorm: 247787 Take 1 Tablet(s) Oral QD 02/26/20 23 024 Active d/c pravastatin 80mg Ozempic 1 mg/dose (4 mg/3 mL) subcutaneous pen injector RxNorm: 6991915 Inject 1 Milligram(s) Subcutaneous QW once a week 02/20/20 23 023 Inactive pregabalin 150 mg capsule RxNorm: 196461 Take 1 Capsule(s) Oral HS at bed time 02/19/20 23 023 Inactive pregabalin 100 mg capsule RxNorm: 952076 Take 1 Capsule(s) Oral QAM every morning 02/18/20 23 024 Active FreeStyle Chema 2 Sensor kit RxNorm: use as directed 02/04/20 23 024 Active venlafaxine ER 75 mg capsule,extended release 24 hr RxNorm: 709193 Take 3 Capsule(s) Oral QD 02/04/20 23 023 Inactive FreeStyle Chema 2 Sensor kit RxNorm: use as directed 02/04/20 23 023 Inactive fluconazole 150 mg tablet RxNorm: 097284 Take 1 Tablet(s) Oral on day 3 and on day 6 02/03/20 024 Active chlorthalidone 25 mg tablet RxNorm: 812706 Take 1 Tablet(s) Oral QAM every morning 02/03/20 23 No Stop Date Active venlafaxine ER 150 mg capsule,extended release 24 hr RxNorm: 242116 Take 1 Capsule(s) Oral QD 02/03/20 23 023 Inactive acetaminophen 500 mg tablet RxNorm: 637538 1 TABLET ORALLY 3 TIMES DAILY (MAX APAP:4GM/24HR) 12/15/19 23 024 Active potassium chloride ER 20 mEq tablet,extended release RxNorm: 999393 Take 1 Tablet(s) Oral BID 12/09/19 23 023 Inactive d/c 20mEq once daily (sent from hospital) clotrimazole 1 % topical cream RxNorm: 019219 apply 1g topically to top of feet and in between toes BID 12/09/19 23 023 Inactive nystatin 100,000 unit/gram topical powder RxNorm: 750565 APPLY TO AFFECTED AREAS TOPICALLY 2 TIMES DAILY 11/21/19 024 Active Nystop 100,000 unit/gram topical powder RxNorm: 952629 Apply to abd folds, under breasts and L side of groin Topical BID x 14 days, then BID PRN 11/20/19 023 Inactive dx: yeast dermatitis [place] Ultra Strength 4 %-30 %-10 % topical cream RxNorm: 996305 Apply 1 Gram(s) Topical QID PRN to feet and legs for neuropathic pain 11/11/19 024 Active hydrocortisone 2.5 % topical cream RxNorm: 837531 Apply 1/2 Gram(s) Topical BID as needed 11/10/19 No Stop Date Active clotrimazole 1 % topical cream RxNorm: 801061 Apply 1/2 Gram(s) Topical BID Apply to affected areas of groin, periarea, and abdominal topically 2 times daily 11/10/19 023 Inactive Levemir FlexPen 100 unit/mL (3 mL) solution subcutaneous insulin pen RxNorm: 973762 Inject 30 Unit(s) Subcutaneous BID 10/07/19 024 Active Humulin R U-500 (Concentrated) Insulin 500 unit/mL subcutaneous soln RxNorm: 353011 Inject 100 Unit(s) Subcutaneous TID 10/07/19 024 Active Ozempic 0.25 mg or 0.5 mg (2 mg/3 mL) subcutaneous pen injector RxNorm: 8125621 Inject 1/2 Milligram(s) Subcutaneous QW once a week 10/07/19 024 Active aripiprazole 15 mg tablet RxNorm: 149705 1/2 TAB (7.5MG) ORALLY DAILY (DX:MAJOR DEPRESSIVE DISORDER) 09/23/19 023 Inactive Lancets,Thin 28 gauge RxNorm: Use 1 as directed QID 09/15/19 23 024 Active Accu-Chek Guide test strips RxNorm: Use 1 Test Strip QID 09/15/19 23 023 Inactive ok to substitute with any covered alternative test strip torsemide 20 mg tablet RxNorm: 012538 Take 1 Tablet(s) Oral BID 09/09/19 23 024 Active d/c once daily dosing carvedilol 25 mg tablet RxNorm: 681131 Take 1 Tablet(s) Oral QD 08/25/19 23 024 Active pregabalin 150 mg capsule RxNorm: 326325 1 Capsule(s) Oral HS at bed time 08/18/19 23 023 Inactive pregabalin 100 mg capsule RxNorm: 723514 1 Capsule(s) Oral QAM every morning 08/18/19 23 023 Inactive carvedilol 25 mg tablet RxNorm: 268238 1 Tablet(s) Oral QD 07/28/19 23 023 Inactive lisinopril 20 mg tablet RxNorm: 844741 Give 1 Tablet(s) Oral QD 07/28/19 23 023 Inactive Lyrica 150 mg capsule RxNorm: 879477 Take 1 Capsule(s) Oral QHS every night at bedtime 07/19/19 23 023 Inactive d/c 100mg dose Diflucan 150 mg tablet RxNorm: 858480 Take 1 Tablet(s) Oral QD repeat on day 3 and 6 07/19/19 23 023 Inactive pregabalin 100 mg capsule RxNorm: 371731 Take 1 Capsule(s) Oral QAM every morning 07/19/19 23 023 Inactive gatifloxacin 0.5 % eye drops RxNorm: 211390 Instill 1 Drop(s) as directed TID Instill 1 drop in to affected eye(s) starting 1 day prior to surgery and continue until gone (do not exceed 4 weeks). 07/13/19 23 023 Inactive carvedilol 25 mg tablet RxNorm: 640771 2 Tablet(s) Oral BID 07/13/19 23 023 Inactive Humulin R Regular U-100 Insulin 100 unit/mL injection solution RxNorm: 941936 85 Unit(s) Injection TID 07/13/19 23 023 Inactive ketorolac 0.5 % eye drops RxNorm: 894876 Instill 1 Drop(s) as directed QID Instill 1 drop into affected eye(s) 4 times daily starting 1 day prior to surgery and continue until gone (do not exceed 4 weeks). 07/13/19 23 023 Inactive Diflucan 150 mg tablet RxNorm: 244434 Take 1 Tablet(s) Oral QD repeat on day 3 and 6 06/30/19 23 023 Inactive Accu-Chek Guide test strips RxNorm: Use 1 Test Strip QID Use 1 test strip to monitor blood glucose 4 times daily and as needed. Dx:E11.42. 06/23/19 23 023 Inactive ok to substitute with any covered alternative test strip dextromethorphan-gu aifenesin 10 mg-100 mg/5 mL oral liquid RxNorm: 234148 Take 10 Milliliter(s) Oral every 4 hours as needed for cough 06/19/19 23 023 Inactive dextromethorphan-gu aifenesin 10 mg-100 mg/5 mL oral liquid RxNorm: 341207 Take 10 Milliliter(s) Oral every 4 hours as needed for cough 06/19/19 23 023 Inactive Lyrica 150 mg capsule RxNorm: 793318 Take 1 Capsule(s) Oral QHS every night at bedtime 06/18/19 23 023 Inactive d/c 100mg dose aripiprazole 15 mg tablet RxNorm: 324913 /2 TAB (7.5MG) ORALLY DAILY (DX:MAJOR DEPRESSIVE DISORDER) 06/05/19 23 023 Inactive pregabalin 100 mg capsule RxNorm: 011540 1 Capsule(s) Oral QAM every morning 06/02/19 23 023 Inactive Banophen 50 mg capsule RxNorm: 4772063 Take 1 Capsule(s) Oral Q6H every 6 hours as needed 05/19/19 23 No Stop Date Active Novolog Flexpen U-100 Insulin aspart 100 unit/mL (3 mL) subcutaneous RxNorm: 7735557 Inject 10 Unit(s) Subcutaneous QHS every night at bedtime with nighttime snack 04/08/20 Inactive Novolog Flexpen U-100 Insulin aspart 100 unit/mL (3 mL) subcutaneous RxNorm: 0233502 Inject 42 Unit(s) Subcutaneous TID in addition to sliding scale 04/08/20 Inactive d/c 36u albuterol sulfate HFA 90 mcg/actuation aerosol inhaler RxNorm: 3470083 Take 2 Puff(s) Inhalation Q4H every four hours as needed as needed for SOB, cough, or wheezing 04/07/20 030 Active Banophen 50 mg capsule RxNorm: 0203255 Take 1 Capsule(s) Oral Q6H every 6 hours as needed 04/06/20 023 Inactive diphenhydramine 50 mg tablet RxNorm: 8863315 Take 1 Tablet(s) Oral Q6H every 6 hours as needed 04/06/20 022 Inactive diphenhydramine 50 mg tablet RxNorm: 1016128 1 Tablet(s) Oral Q6H every 6 hours as needed 04/06/20 022 Inactive Abilify 15 mg tablet RxNorm: 652679 1/2 Tablet(s) Oral QD 03/10/20 023 Inactive Shingrix (PF) 50 mcg/0.5 mL intramuscular suspension, kit RxNorm: 5668341 Administer 1/2 Milliliter(s) Intramuscular QD one time shingrix step 2 ( step 1 given 11/04/21) WITH needle - Nursing please administer upon arrival and once administered post a bridge message with date of administration, well cleaner, expiration date, and lot# so we can update [facility] 02/18/20 22 022 Inactive dispense with needle Shingrix (PF) 50 mcg/0.5 mL intramuscular suspension, kit RxNorm: 1655324 Administer 1/2 Milliliter(s) Intramuscular QD one time shingrix step 2 ( step 1 given 11/04/21) WITH needle - Nursing please administer upon arrival and once administered post a bridge message with date of administration, well cleaner, expiration date, and lot# so we can update [facility] 02/18/20 Inactive dispense with needle polyethylene glycol 3350 17 gram/dose oral powder RxNorm: 295272 Take 17=1 capful Gram(s) Oral QD mix with 4-8oz of liquid 01/08/20 22 023 Inactive take this in addition to BID prn order Lyrica 100 mg capsule RxNorm: 756206 Take 1 Capsule(s) Oral QAM every morning 01/08/20 22 022 Inactive d/c 50mg dose acetaminophen 500 mg tablet RxNorm: 932281 Take 1 Tablet(s) Oral TID 01/08/20 22 022 Inactive d/c PRN order Lyrica 150 mg capsule RxNorm: 401065 Take 1 Capsule(s) Oral QHS every night at bedtime 01/08/20 22 023 Inactive d/c 100mg dose Abilify 5 mg tablet RxNorm: 953301 Take 1 Tablet(s) Oral QD take 1 tab po QD #30 refill 5 dx: MDD 12/12/19 22 022 Inactive Abilify 5 mg tablet RxNorm: 497614 Take 1 Tablet(s) Oral QD take 1 tab po QD #30 refill 5 dx: MDD 12/12/19 22 022 Inactive Novolog Flexpen U-100 Insulin aspart 100 unit/mL (3 mL) subcutaneous RxNorm: 4666778 Inject 42 Unit(s) Subcutaneous TID in addition to sliding scale 12/10/19 22 022 Inactive d/c 36u chlorthalidone 25 mg tablet RxNorm: 075866 Take 1 Tablet(s) Oral QAM every morning 12/10/19 22 023 Inactive pregabalin 50 mg capsule RxNorm: 585308 Take 1 Capsule(s) Oral QAM every morning 11/12/19 22 022 Inactive tetanus-diphtheria toxoids-Td 2 Lf unit-2 Lf unit/0.5 mL IM suspension RxNorm: 139 Take 0.5 Miscellaneous Intramuscular 11/12/19 22 022 Inactive need tdap - nursing to administer upon arrival pregabalin 50 mg capsule RxNorm: 323644 Take 1 Capsule(s) Oral QAM every morning 10/16/19 22 022 Inactive pregabalin 50 mg capsule RxNorm: 171051 Take 1 Capsule(s) Oral QAM every morning 10/16/19 22 022 Inactive pregabalin 50 mg capsule RxNorm: 953830 1 Capsule(s) Oral QAM every morning 10/15/19 22 022 Inactive Shingrix (PF) 50 mcg/0.5 mL intramuscular suspension, kit RxNorm: 5923371 Administer 1/2 Milliliter(s) Intramuscular one time Nursing please administer upon arrival and once administered post a bridge message with date of administration, well cleaner, expiration date, and lot# so we can update [facility]. 10/09/19 22 022 Inactive shingrix step 1 Shingrix (PF) 50 mcg/0.5 mL intramuscular suspension, kit RxNorm: 5820664 Administer 1/2 Milliliter(s) Intramuscular one time Nursing please administer upon arrival and once administered post a bridge message with date of administration, well cleaner, expiration date, and lot# so we can update [facility]. 10/09/19 22 022 Inactive shingrix step 1 cholecalciferol (vitamin D3) 1,250 mcg (50,000 unit) capsule RxNorm: 577031 Take 1 Capsule(s) Oral QW once a [...] aspart 100 unit/mL (3 mL) subcutaneous RxNorm: 1334450 Inject 10 Unit(s) Subcutaneous QHS every night at bedtime with nighttime snack 10/08/19 22 022 Inactive Shingrix (PF) 50 mcg/0.5 mL intramuscular suspension, kit RxNorm: 4083873 ADMINISTER 2-DOSE SERIES PER CDC GUIDELINES 10/08/19 22 Active Shingrix (PF) 50 mcg/0.5 mL intramuscular suspension, kit RxNorm: 3916997 ADMINISTER 2-DOSE SERIES PER CDC GUIDELINES 10/08/19 22 Inactive Novolog Flexpen U-100 Insulin aspart 100 unit/mL (3 mL) subcutaneous RxNorm: 2347783 Inject 36 Unit(s) Subcutaneous TID in addition to sliding scale 10/08/19 22 Inactive Novofine Autocover 30 gauge x 1/3 needle RxNorm: Use 1 Miscellaneous UD as directed Use 1 needle as directed to administer insulin 5 times a day Dx:E11.42. 10/03/19 Inactive ok to substitute with any covered alternative pen needle benzoyl peroxide 10 % topical cleanser RxNorm: 806369 Apply 1 Application Topical QD apply to face, wash rinse and dry once daily (may change to QOD if drying) 08/19/19 Inactive (%covered by insurance) #60ml refill 11 dx: acne benzoyl peroxide 10 % topical cleanser RxNorm: 921465 Apply 1 Application Topical QD apply to face, wash rinse and dry once daily (may change to QOD if drying) 08/19/19 022 Inactive (%covered by insurance) #60ml refill 11 dx: acne benzoyl peroxide 10 % topical cleanser RxNorm: 071057 Apply 1 Application Topical QD apply to face, wash rinse and dry once daily (may change to QOD if drying) 08/19/19 022 Inactive (%covered by insurance) #60ml refill 11 dx: acne Lyrica 50 mg capsule RxNorm: 353467 Take 1 Capsule(s) Oral QAM every morning Take 1 capsule by mouth once daily 08/19/19 22 022 Inactive benzoyl peroxide 10 % topical cleanser RxNorm: 708424 Apply 1 Application Topical QD apply to face, wash rinse and dry once daily (may change to QOD if drying) 08/19/19 22 022 Inactive (%covered by insurance) #60ml refill 11 dx: acne Lyrica 100 mg capsule RxNorm: 372998 Take 1 Capsule(s) Oral QHS every night at bedtime Take 1 capsule by mouth once daily at bedtime 08/19/19 22 022 Inactive Lyrica 100 mg capsule RxNorm: 159769 Take 1 Capsule(s) Oral QHS every night at bedtime Take 1 capsule by mouth once daily at bedtime 08/16/19 22 022 Inactive Lyrica 50 mg capsule RxNorm: 823153 Take 1 Capsule(s) Oral QAM every morning Take 1 capsule by mouth once daily 08/16/19 22 022 Inactive Levemir FlexTouch U-100 Insulin 100 unit/mL (3 mL) subcutaneous pen RxNorm: 600058 Inject 86 Unit(s) Subcutaneous BID 08/05/19 22 022 Inactive d/c 83units BID Lyrica 100 mg capsule RxNorm: 959991 Take 1 Capsule(s) Oral QHS every night at bedtime Take 1 capsule by mouth once daily at bedtime 07/14/19 22 022 Inactive Lyrica 50 mg capsule RxNorm: 963541 Take 1 Capsule(s) Oral QAM every morning Take 1 capsule by mouth once daily 07/14/19 22 022 Inactive Levemir FlexTouch U-100 Insulin 100 unit/mL (3 mL) subcutaneous pen RxNorm: 937100 Inject 83 Unit(s) Subcutaneous BID 07/08/19 22 [...] 30 mg tablet,extended release 24 hr RxNorm: 374726 Take 1 Tablet(s) Oral QD 05/05/20 21 No Stop Date Active hydralazine 50 mg tablet RxNorm: 143700 Take 1 Tablet(s) Oral QID 05/05/20 21 022 Inactive venlafaxine ER 225 mg tablet,extended release 24 hr RxNorm: 485728 Take 1 Tablet(s) Oral QD 05/05/20 21 021 Inactive venlafaxine ER 225 mg tablet,extended release 24 hr RxNorm: 451634 Take 1 Tablet(s) Oral QD 05/05/20 21 022 Inactive hydralazine 50 mg tablet RxNorm: 297096 Take 1 Tablet(s) Oral QID 05/05/20 21 Inactive aspirin 81 mg tablet,delayed release RxNorm: 873522 Take 1 Tablet(s) Oral QD 03/31/20 21 022 Inactive Zetia 10 mg tablet RxNorm: 660162 Take 1 Tablet(s) Oral QD 03/31/20 21 Inactive Vitamin D2 1,250 mcg (50,000 unit) capsule RxNorm: 1047095 Take 1 Capsule(s) Oral QW once a week x 12 weeks 03/31/20 022 Inactive Vitamin D2 1,250 mcg (50,000 unit) capsule RxNorm: 1193070 Take 1 Capsule(s) Oral QW once a week 03/31/20 Inactive Zetia 10 mg tablet RxNorm: 310449 Take 1 Tablet(s) Oral QD 03/31/20 Inactive hydralazine 25 mg tablet RxNorm: 411085 Take 1 Tablet(s) Oral QID 03/31/20 021 Inactive hydralazine 25 mg tablet RxNorm: 973326 Take 1 Tablet(s) Oral QID 03/31/20 021 Inactive hydralazine 10 mg tablet RxNorm: 807944 Take 1 Tablet(s) Oral QID 03/03/20 021 Inactive cephalexin 500 mg tablet RxNorm: 754008 Take 1 Tablet(s) Oral QID 02/27/20 021 Inactive cephalexin 500 mg tablet RxNorm: 513815 Take 1 Tablet(s) Oral QID 02/27/20 021 Inactive lisinopril 40 mg tablet RxNorm: 432425 Take 1 Tablet(s) Oral QD 02/11/20 21 023 Inactive Eliquis 5 mg tablet RxNorm: 6558256 Take 1 Tablet(s) Oral BID 01/05/20 21 022 Inactive Eliquis 5 mg tablet RxNorm: 8346457 Take 2 Tablet(s) Oral QD 01/01/20 21 021 Inactive Lyrica 50 mg capsule RxNorm: 839498 Take 1 Capsule(s) Oral QAM every morning 12/24/19 21 021 Inactive Lyrica 100 mg capsule RxNorm: 068722 Take 1 Capsule(s) Oral QHS every night at bedtime 12/24/19 21 021 Inactive clotrimazole 1 % topical cream RxNorm: 968653 Apply to right foot and toes Topical BID 12/04/19 21 023 Inactive metoprolol succinate ER 200 mg tablet,extended release 24 hr RxNorm: 233589 Take 1 Tablet(s) Oral QD 12/04/19 21 023 Inactive ciprofloxacin 500 mg tablet RxNorm: 847954 Take 1 Tablet(s) Oral QD 11/30/19 21 021 Inactive DX ofloxacin otic drops Accu-Chek Guide test strips RxNorm: USE 1 TO CHECK GLUCOSE 4 TIMES DAILY AND NEEDED 11/15/19 21 023 Inactive Blood Glucose Test strips RxNorm: Use 1 Test Strip QID at PRN 11/05/19 21 023 Inactive E11.42 lisinopril 30 mg tablet RxNorm: 258111 Take 1 Tablet(s) Oral QD 10/30/19 021 Inactive lisinopril 20 mg tablet RxNorm: 624964 Take 1 Tablet(s) Oral QD 10/23/19 021 Inactive lisinopril 20 mg tablet RxNorm: 164633 Take 1 Tablet(s) Oral QD 10/23/19 021 Inactive lisinopril 10 mg tablet RxNorm: 764466 Take 1 Tablet(s) Oral QD 10/02/19 021 Inactive icosapent ethyl 1 gram capsule RxNorm: 9438940 Take 2 Capsule(s) (2 gm) Oral BID with meals 09/12/19 022 Inactive Okay to dispense one 2gm tab if you have that available. icosapent ethyl 1 gram capsule RxNorm: 4390238 Take 2 Capsule(s) Oral BID 09/12/19 021 Inactive Okay to dispense one 2gm tab if you have that available. amlodipine 10 mg tablet RxNorm: 545538 Take 1 Tablet(s) Oral QD 09/04/19 022 Inactive aspirin 81 mg tablet,delayed release RxNorm: 059022 Take 1 Tablet(s) Oral QD 09/04/19 21 021 Inactive Levemir FlexTouch U-100 Insulin 100 unit/mL (3 mL) subcutaneous pen RxNorm: 511600 Inject 150 Unit(s) Subcutaneous BID 09/04/19 022 Inactive venlafaxine ER 150 mg tablet,extended release 24 hr RxNorm: 158403 Take 1 Tablet(s) Oral QD 09/04/19 Inactive clotrimazole-betame thasone 1 %-0.05 % topical cream RxNorm: 596448 Apply to rash on red area on left abdomen/chest Topical BID 08/10/19 Inactive amlodipine 5 mg tablet RxNorm: 159435 Take 1 Tablet(s) Oral QD 07/31/19 Inactive cephalexin 500 mg tablet RxNorm: 993794 Take 1 Tablet(s) Oral BID BID - Twice Daily 07/31/19 Inactive Start 08/01/20 pantoprazole 40 mg tablet,delayed release RxNorm: 462166 Take 1 Tablet(s) Oral QAM every morning 07/08/19 022 Inactive senna 8.6 mg tablet RxNorm: 637873 Take 1 Tablet(s) Oral QD 07/08/19 022 Inactive carbamazepine 200 mg tablet RxNorm: 331824 Take 1 Tablet(s) Oral BID 07/08/19 022 Inactive clopidogrel 75 mg tablet RxNorm: 583397 Take 1 Tablet(s) Oral QD 07/08/19 021 Inactive Blood Glucose Test strips RxNorm: Use 1 Test Strip QID at PRN 07/08/19 Inactive E11.42 Novolog Flexpen U-100 Insulin aspart 100 unit/mL (3 mL) subcutaneous RxNorm: 5420724 Administer per sliding scale Milliliter(s) Subcutaneous TID 151-200: 10 u; 201-250: 20 u; 251-300: 30 u; 301-350: 40 u; 351-400: 50 u. 07/08/19 022 Inactive lisinopril 5 mg tablet RxNorm: 020527 Take 1 Tablet(s) Oral QD 07/08/19 021 Inactive Novolog Flexpen U-100 Insulin aspart 100 unit/mL (3 mL) subcutaneous RxNorm: 8249340 Inject 85 Unit(s) Subcutaneous TID 07/08/19 21 022 Inactive pravastatin 80 mg tablet RxNorm: 916406 Take 1 Tablet(s) Oral QHS every night at bedtime 07/08/19 023 Inactive clotrimazole 1 % topical cream RxNorm: 578088 Apply to bilateral groin areas Topical BID 07/08/19 022 Inactive metoprolol succinate ER 200 mg tablet,extended release 24 hr RxNorm: 986033 Take 1 Tablet(s) Oral QD 07/08/19 21 021 Inactive Vitamin D3 25 mcg (1,000 unit) tablet RxNorm: 121659 Take 1 Tablet(s) Oral QD 07/08/19 021 Inactive isosorbide dinitrate 30 mg tablet RxNorm: 201324 Take 1 Tablet(s) Oral QD 07/08/19 021 Inactive Levemir FlexTouch U-100 Insulin 100 unit/mL (3 mL) subcutaneous pen RxNorm: 584952 Inject 140 Unit(s) Subcutaneous BID 07/08/19 021 Inactive torsemide 20 mg tablet RxNorm: 799743 Take 1 Tablet(s) Oral QD 07/08/19 21 023 Inactive venlafaxine 75 mg tablet RxNorm: 097128 Take 1 Tablet(s) Oral QD 07/08/19 021 Inactive acetaminophen 500 mg tablet RxNorm: 628448 Take 1 Tablet(s) Oral TID as needed for headache 06/18/19 021 Inactive acetaminophen 500 mg tablet RxNorm: 488826 Take 1 Tablet(s) Oral TID as needed for headache 06/18/19 021 Inactive Lyrica 100 mg capsule RxNorm: 964597 Take 1 Capsule(s) Oral QHS every night at bedtime 06/11/19 021 Inactive Lyrica 50 mg capsule RxNorm: 468093 Take 1 Capsule(s) Oral QAM every morning 06/10/19 21 021 Inactive hydrocortisone 2.5 % topical cream RxNorm: 712807 Apply to bilateral groin creases Topical BID 05/15/20 20 021 Inactive clotrimazole 1 % topical cream RxNorm: 192154 Apply to bilateral groin areas Topical BID 05/15/20 20 Inactive Lyrica 50 mg capsule RxNorm: 239912 Take 1 Capsule(s) Oral QAM every morning 05/14/20 20 020 Inactive Lyrica 100 mg capsule RxNorm: 242577 Take 1 Capsule(s) Oral QHS every night [...] Inactive Nystop 100,000 unit/gram topical powder RxNorm: 528857 Apply to abd folds, under breasts and L side of groin Topical BID x 14 days, then BID PRN 04/08/20 20 020 Inactive dx: yeast dermatitis Lyrica 100 mg capsule RxNorm: 844408 Take 1 Capsule(s) Oral QHS every night at bedtime 03/13/20 20 Inactive Lyrica 50 mg capsule RxNorm: 754449 Take 1 Capsule(s) Oral QAM every morning 03/13/20 20 020 Inactive ketoconazole 2 % shampoo RxNorm: 621207 Apply Topical two times a week with showers 03/11/20 20 021 Inactive cholecalciferol (vitamin D3) 50 mcg (2,000 unit) tablet RxNorm: 628170 Take 1 Tablet(s) Oral QD 03/11/20 20 021 Inactive Zetia 10 mg tablet RxNorm: 316010 Take 1 Tablet(s) Oral QD 03/07/20 20 021 Inactive Zetia 10 mg tablet RxNorm: 197306 Take 1 Tablet(s) Oral QD 03/07/20 Inactive Lyrica 50 mg capsule RxNorm: 112470 Take 1 Capsule(s) Oral QAM every morning 02/15/20 Inactive Lyrica 100 mg capsule RxNorm: 129941 Take 1 Capsule(s) Oral QHS every night at bedtime 02/15/20 Inactive Lyrica 100 mg capsule RxNorm: 936470 Take 1 Capsule(s) Oral QHS every night at bedtime 02/15/20 Inactive Lyrica 50 mg capsule RxNorm: 413597 Take 1 Capsule(s) Oral QAM every morning 02/15/20 Inactive polyethylene glycol 3350 17 gram/dose oral powder RxNorm: 884929 Take 17=1 capful Gram(s) Oral BID as needed mix with 4-8oz of liquid 06/12/19 22 Active metoprolol succinate ER 200 mg tablet,extended release 24 hr RxNorm: 462033 Take 1 Tablet(s) Oral QD 08/12/19 23 Active loperamide 2 mg capsule RxNorm: 729464 Take 1 Capsule(s) Oral QID as needed 06/12/19 22 Active hydralazine 50 mg tablet RxNorm: 506964 Take 1 Tablet(s) Oral QID 08/12/19 23 Active venlafaxine ER 75 mg capsule,extended release 24 hr RxNorm: 546090 Take 3 Capsule(s) Oral QD 06/12/19 22 023 Inactive icosapent ethyl 1 gram capsule RxNorm: 6251625 Take 2 Capsule(s) (2 gm) Oral BID with meals 10/07/19 23 023 Inactive Okay to dispense one 2gm tab if you have that available. Levemir FlexTouch U-100 Insulin 100 unit/mL (3 mL) subcutaneous pen RxNorm: 874682 Inject 80 Unit(s) Subcutaneous BID 07/14/19 23 023 Inactive Novolog Flexpen U-100 Insulin aspart 100 unit/mL (3 mL) subcutaneous RxNorm: 4700678 Insert 30 Unit(s) Subcutaneous TID with meals 10/08/19 22 022 Inactive Medication Administered No Medication Administered data Reason For Visit No Reason For Visit data Plan of Care Planned Activity Notes Codes Status Date Referral: [facility] [place]: [address] [id number] [place] Referral Records Received 09/21/2022 Referral: [facility] [place]: [address] [id number] [place] Referral Completed 05/28/2021 Referral: General Cardiology Referral Complet ed 01/03/2021 Referral: General Psychologist Referral Close d Referral: General Psychiatrist Referral Need Additional Information [...] [facility] to have closer nursing attention.??Sister Jyotsna involved in his care cell# [phone]??Guardian: Don (tapan met in person 09/01/21), now has Lexii (same group as don)Lab Schedule: /September* 02/08/2023
--- OUTSIDE RECORDS SUMMARY | 2023-04-01 08:37 | XMS_ITS | CCD ---
Author Name Unknown Organization Unknown Care Team Providers Care Carburetor Repairer Name Role Phone Chelo Fonseca PA-C Primary Care Provider Unavaila ble Chelo Fonseca PA-C Chronic Care Management Nicole archer Summary Purpose DataExchange Insurance Providers Payer name Policy type / Coverage type Covered alliance party ID Effective Begin Date Effective End Date Medicare [place] Medicare Part B [id number] Unknown Unknown Medicaid [place] Medicare Part B [id number] Unknown Unknown Family history Sister Brittany Suggs [...] Correction 09/03/[address]: 0826088 Non-Smoker / No History of Smoking 09/02/[address]: 001184853 No Alcohol Consum ption 09/02/2020 Allergies, Adverse Reactions, Alerts Substance Reaction Codes Entered Date Inactivated Date Status LISINOPRIL RxNorm: 48480 02/12/2020 No Inactive Da te Active Metformin HCl Unknown 02/12/2020 No Inactive Cristiano e Active Problems Condition Codes Effective Dates Condition St atus Annual physical exam ICD-10: Z00.00 ICD-9: V70.0 02/02/2023 Active Coronary artery disease invo lving [place] coronary artery of [place] heart, angina presence unspecified ICD-10: I25.10 ICD-9: 414.01 02/02/2023 Active Encounter for other specifie d special examinations ICD-10: Z01.89 ICD-9: V72.85 02/02/2023 Active Encounter for screening for nutritional disorder ICD-10: Z13.21 ICD-9: V77.99 02/02/2023 Active Hyperlipidemia associated wi th type 2 diabetes mellitus ICD-10: E11.69 ICD-9: 250.80 02/02/2023 Active Other watermaster (current) dr ug therapy ICD-10: Z79.899 ICD-9: [...] immunization ICD-10: Z23 ICD-9: V03.89 02/10/2022 Resolved intermission coordinator (current) use of insulin ICD-10: Z79.4 02/10 [...] Fill Instructions pregabalin 150 mg capsule RxNorm: 853211 Take 1 Capsule(s) Oral HS at bed time 02/19/20 23 023 Inactive pregabalin 100 mg capsule RxNorm: 350415 Take 1 Capsule(s) Oral QAM every morning 02/18/20 23 024 Active FreeStyle Chema 2 Sensor kit RxNorm: use as directed 02/04/20 23 024 Active venlafaxine ER 75 mg capsule,extended release 24 hr RxNorm: 942419 Take 3 Capsule(s) Oral QD 02/04/20 23 023 Inactive FreeStyle Chema 2 Sensor kit RxNorm: use as directed 02/04/20 23 023 Inactive fluconazole 150 mg tablet RxNorm: 136891 Take 1 Tablet(s) Oral on day 3 and on day 6 02/03/20 23 024 Active chlorthalidone 25 mg tablet RxNorm: 524096 Take 1 Tablet(s) Oral QAM every morning 02/03/20 23 No Stop Date Active venlafaxine ER 150 mg capsule,extended release 24 hr RxNorm: 521191 Take 1 Capsule(s) Oral QD 02/03/20 23 023 Inactive acetaminophen 500 mg tablet RxNorm: 499877 1 TABLET ORALLY 3 TIMES DAILY (MAX APAP:4GM/24HR) 12/15/19 23 024 Active potassium chloride ER 20 mEq tablet,extended release RxNorm: 150284 Take 1 Tablet(s) Oral BID 12/09/19 23 023 Inactive d/c 20mEq once daily (sent from hospital) clotrimazole 1 % topical cream RxNorm: 243993 apply 1g topically to top of feet and in between toes BID 12/09/19 23 023 Inactive nystatin 100,000 unit/gram topical powder RxNorm: 988828 APPLY TO AFFECTED AREAS TOPICALLY 2 TIMES DAILY 11/21/19 23 024 Active Nystop 100,000 unit/gram topical powder RxNorm: 871887 Apply to abd folds, under breasts and L side of groin Topical BID x 14 days, then BID PRN 11/20/19 23 023 Inactive dx: yeast dermatitis Beng[place] Ultra Strength 4 %-30 %-10 % topical cream RxNorm: 372720 Apply 1 Gram(s) Topical QID PRN to feet and legs for neuropathic pain 11/11/19 23 024 Active hydrocortisone 2.5 % topical cream RxNorm: 800212 Apply 1/2 Gram(s) Topical BID as needed 11/10/19 No Stop Date Active clotrimazole 1 % topical cream RxNorm: 874208 Apply 1/2 Gram(s) Topical BID Apply to affected areas of groin, periarea, and abdominal topically 2 times daily 11/10/19 23 023 Inactive Levemir FlexPen 100 unit/mL (3 mL) solution subcutaneous insulin pen RxNorm: 109906 Inject 30 Unit(s) Subcutaneous BID 10/07/19 024 Active Humulin R U-500 (Concentrated) Insulin 500 unit/mL subcutaneous soln RxNorm: 717153 Inject 100 Unit(s) Subcutaneous TID 10/07/19 024 Active Ozempic 0.25 mg or 0.5 mg (2 mg/3 mL) subcutaneous pen injector RxNorm: 4726680 Inject 1/2 Milligram(s) Subcutaneous QW once a week 10/07/19 024 Active aripiprazole 15 mg tablet RxNorm: 514740 1/2 TAB (7.5MG) ORALLY DAILY (DX:MAJOR DEPRESSIVE DISORDER) 09/23/19 023 Inactive Lancets,Thin 28 gauge RxNorm: Use 1 as directed QID 09/15/19 23 024 Active Accu-Chek Guide test strips RxNorm: Use 1 Test Strip QID 09/15/19 23 023 Inactive ok to substitute with any covered alternative test strip torsemide 20 mg tablet RxNorm: 557034 Take 1 Tablet(s) Oral BID 09/09/19 23 024 Active d/c once daily dosing carvedilol 25 mg tablet RxNorm: 051090 Take 1 Tablet(s) Oral QD 08/25/19 23 024 Active pregabalin 150 mg capsule RxNorm: 448549 1 Capsule(s) Oral HS at bed time 08/18/19 23 023 Inactive pregabalin 100 mg capsule RxNorm: 091673 1 Capsule(s) Oral QAM every morning 08/18/19 23 023 Inactive carvedilol 25 mg tablet RxNorm: 443104 1 Tablet(s) Oral QD 07/28/19 23 023 Inactive lisinopril 20 mg tablet RxNorm: 517117 Give 1 Tablet(s) Oral QD 07/28/19 23 023 Inactive Lyrica 150 mg capsule RxNorm: 090707 Take 1 Capsule(s) Oral QHS every night at bedtime 07/19/19 23 023 Inactive d/c 100mg dose Diflucan 150 mg tablet RxNorm: 925465 Take 1 Tablet(s) Oral QD repeat on day 3 and 6 07/19/19 23 023 Inactive pregabalin 100 mg capsule RxNorm: 392520 Take 1 Capsule(s) Oral QAM every morning 07/19/19 023 Inactive gatifloxacin 0.5 % eye drops RxNorm: 184158 Instill 1 Drop(s) as directed TID Instill 1 drop in to affected eye(s) starting 1 day prior to surgery and continue until gone (do not exceed 4 weeks). 07/13/19 23 023 Inactive carvedilol 25 mg tablet RxNorm: 637589 2 Tablet(s) Oral BID 07/13/19 023 Inactive Humulin R Regular U-100 Insulin 100 unit/mL injection solution RxNorm: 988555 85 Unit(s) Injection TID 07/13/19 23 023 Inactive ketorolac 0.5 % eye drops RxNorm: 433439 Instill 1 Drop(s) as directed QID Instill 1 drop into affected eye(s) 4 times daily starting 1 day prior to surgery and continue until gone (do not exceed 4 weeks). 07/13/19 023 Inactive Diflucan 150 mg tablet RxNorm: 798719 Take 1 Tablet(s) Oral QD repeat on day 3 and 6 06/30/19 23 023 Inactive Accu-Chek Guide test strips RxNorm: Use 1 Test Strip QID Use 1 test strip to monitor blood glucose 4 times daily and as needed. Dx:E11.42. 06/23/19 23 023 Inactive ok to substitute with any covered alternative test strip dextromethorphan-gu aifenesin 10 mg-100 mg/5 mL oral liquid RxNorm: 604810 Take 10 Milliliter(s) Oral every 4 hours as needed for cough 06/19/19 23 023 Inactive dextromethorphan-gu aifenesin 10 mg-100 mg/5 mL oral liquid RxNorm: 511543 Take 10 Milliliter(s) Oral every 4 hours as needed for cough 06/19/19 023 Inactive Lyrica 150 mg capsule RxNorm: 780530 Take 1 Capsule(s) Oral QHS every night at bedtime 06/18/19 023 Inactive d/c 100mg dose aripiprazole 15 mg tablet RxNorm: 606985 1/2 TAB (7.5MG) ORALLY DAILY (DX:MAJOR DEPRESSIVE DISORDER) 06/05/19 023 Inactive pregabalin 100 mg capsule RxNorm: 910807 1 Capsule(s) Oral QAM every morning 06/02/19 023 Inactive Banophen 50 mg capsule RxNorm: 9146623 Take 1 Capsule(s) Oral Q6H every 6 hours as needed 05/19/19 23 No Stop Date Active Novolog Flexpen U-100 Insulin aspart 100 unit/mL (3 mL) subcutaneous RxNorm: 8985459 Inject 10 Unit(s) Subcutaneous QHS every night at bedtime with nighttime snack 04/08/20 022 Inactive Novolog Flexpen U-100 Insulin aspart 100 unit/mL (3 mL) subcutaneous RxNorm: 9506079 Inject 42 Unit(s) Subcutaneous TID in addition to sliding scale 04/08/20 022 Inactive d/c 36u albuterol sulfate HFA 90 mcg/actuation aerosol inhaler RxNorm: 3176629 Take 2 Puff(s) Inhalation Q4H every four hours as needed as needed for SOB, cough, or wheezing 04/07/20 030 Active Banophen 50 mg capsule RxNorm: 7824465 Take 1 Capsule(s) Oral Q6H every 6 hours as needed 04/06/20 023 Inactive diphenhydramine 50 mg tablet RxNorm: 4842116 Take 1 Tablet(s) Oral Q6H every 6 hours as needed 04/06/20 22 022 Inactive diphenhydramine 50 mg tablet RxNorm: 9789028 1 Tablet(s) Oral Q6H every 6 hours as needed 04/06/20 22 022 Inactive Abilify 15 mg tablet RxNorm: 085289 1/2 Tablet(s) Oral QD 03/10/20 22 023 Inactive Shingrix (PF) 50 mcg/0.5 mL intramuscular suspension, kit RxNorm: 6110243 Administer 1/2 Milliliter(s) Intramuscular QD one time shingrix step 2 ( step 1 given 11/04/21) WITH needle - Nursing please administer upon arrival and once administered post a bridge message with date of administration, j2ee java developer, expiration date, and lot# so we can update [facility] 02/18/20 22 022 Inactive dispense with needle Shingrix (PF) 50 mcg/0.5 mL intramuscular suspension, kit RxNorm: 9921312 Administer 1/2 Milliliter(s) Intramuscular QD one time shingrix step 2 ( step 1 given 11/04/21) WITH needle - Nursing please administer upon arrival and once administered post a bridge message with date of administration, j2ee java developer, expiration date, and lot# so we can update [facility] 02/18/20 22 022 Inactive dispense with needle polyethylene glycol 3350 17 gram/dose oral powder RxNorm: 358498 Take 17=1 capful Gram(s) Oral QD mix with 4-8oz of liquid 01/08/20 22 023 Inactive take this in addition to BID prn order Lyrica 100 mg capsule RxNorm: 001478 Take 1 Capsule(s) Oral QAM every morning 01/08/20 22 022 Inactive d/c 50mg dose acetaminophen 500 mg tablet RxNorm: 109738 Take 1 Tablet(s) Oral TID 01/08/20 22 022 Inactive d/c PRN order Lyrica 150 mg capsule RxNorm: 101978 Take 1 Capsule(s) Oral QHS every night at bedtime 01/08/20 22 023 Inactive d/c 100mg dose Abilify 5 mg tablet RxNorm: 569535 Take 1 Tablet(s) Oral QD take 1 tab po QD #30 refill 5 dx: MDD 12/12/19 22 022 Inactive Abilify 5 mg tablet RxNorm: 745976 Take 1 Tablet(s) Oral QD take 1 tab po QD #30 refill 5 dx: MDD 12/12/19 22 022 Inactive Novolog Flexpen U-100 Insulin aspart 100 unit/mL (3 mL) subcutaneous RxNorm: 7996590 Inject 42 Unit(s) Subcutaneous TID in addition to sliding scale 12/10/19 22 022 Inactive d/c 36u chlorthalidone 25 mg tablet RxNorm: 287844 Take 1 Tablet(s) Oral QAM every morning 12/10/19 22 023 Inactive pregabalin 50 mg capsule RxNorm: 083922 Take 1 Capsule(s) Oral QAM every morning 11/12/19 22 022 Inactive tetanus-diphtheria toxoids-Td 2 Lf unit-2 Lf unit/0.5 mL IM suspension RxNorm: 139 Take 0.5 Miscellaneous Intramuscular 11/12/19 22 022 Inactive need tdap - nursing to administer upon arrival pregabalin 50 mg capsule RxNorm: 930776 Take 1 Capsule(s) Oral QAM every morning 10/16/19 22 022 Inactive pregabalin 50 mg capsule RxNorm: 445323 Take 1 Capsule(s) Oral QAM every morning 10/16/19 22 022 Inactive pregabalin 50 mg capsule RxNorm: 607938 1 Capsule(s) Oral QAM every morning 10/15/19 22 022 Inactive Shingrix (PF) 50 mcg/0.5 mL intramuscular suspension, kit RxNorm: 3757326 Administer 1/2 Milliliter(s) Intramuscular one time Nursing please administer upon arrival and once administered post a bridge message with date of administration, j2ee java developer, expiration date, and lot# so we can update [facility]. 10/09/19 22 022 Inactive shingrix step 1 Shingrix (PF) 50 mcg/0.5 mL intramuscular suspension, kit RxNorm: 1555610 Administer 1/2 Milliliter(s) Intramuscular one time Nursing please administer upon arrival and once administered post a bridge message with date of administration, j2ee java developer, expiration date, and lot# so we can update [facility]. 10/09/19 22 Inactive shingrix step 1 cholecalciferol (vitamin D3) 1,250 mcg (50,000 unit) capsule RxNorm: 164929 Take 1 Capsule(s) Oral QW once a [...] aspart 100 unit/mL (3 mL) subcutaneous RxNorm: 0593725 Inject 10 Unit(s) Subcutaneous QHS every night at bedtime with nighttime snack 10/08/19 22 Inactive Shingrix (PF) 50 mcg/0.5 mL intramuscular suspension, kit RxNorm: 7494130 ADMINISTER 2-DOSE SERIES PER CDC GUIDELINES 10/08/19 22 022 Active Shingrix (PF) 50 mcg/0.5 mL intramuscular suspension, kit RxNorm: 8001188 ADMINISTER 2-DOSE SERIES PER CDC GUIDELINES 10/08/19 22 022 Inactive Novolog Flexpen U-100 Insulin aspart 100 unit/mL (3 mL) subcutaneous RxNorm: 1369073 Inject 36 Unit(s) Subcutaneous TID in addition to sliding scale 10/08/19 22 Inactive Novofine Autocover 30 gauge x 1/3 needle RxNorm: Use 1 Miscellaneous UD as directed Use 1 needle as directed to administer insulin 5 times a day Dx:E11.42. 10/03/19 22 022 Inactive ok to substitute with any covered alternative pen needle benzoyl peroxide 10 % topical cleanser RxNorm: 340067 Apply 1 Application Topical QD apply to face, wash rinse and dry once daily (may change to QOD if drying) 08/19/19 22 022 Inactive (%covered by insurance) #60ml refill 11 dx: acne benzoyl peroxide 10 % topical cleanser RxNorm: 133393 Apply 1 Application Topical QD apply to face, wash rinse and dry once daily (may change to QOD if drying) 08/19/19 22 022 Inactive (%covered by insurance) #60ml refill 11 dx: acne benzoyl peroxide 10 % topical cleanser RxNorm: 413298 Apply 1 Application Topical QD apply to face, wash rinse and dry once daily (may change to QOD if drying) 08/19/19 22 022 Inactive (%covered by insurance) #60ml refill 11 dx: acne Lyrica 50 mg capsule RxNorm: 527229 Take 1 Capsule(s) Oral QAM every morning Take 1 capsule by mouth once daily 08/19/19 022 Inactive benzoyl peroxide 10 % topical cleanser RxNorm: 275882 Apply 1 Application Topical QD apply to face, wash rinse and dry once daily (may change to QOD if drying) 08/19/19 022 Inactive (%covered by insurance) #60ml refill 11 dx: acne Lyrica 100 mg capsule RxNorm: 440472 Take 1 Capsule(s) Oral QHS every night at bedtime Take 1 capsule by mouth once daily at bedtime 08/19/19 22 022 Inactive Lyrica 100 mg capsule RxNorm: 930952 Take 1 Capsule(s) Oral QHS every night at bedtime Take 1 capsule by mouth once daily at bedtime 08/16/19 22 022 Inactive Lyrica 50 mg capsule RxNorm: 791531 Take 1 Capsule(s) Oral QAM every morning Take 1 capsule by mouth once daily 08/16/19 22 022 Inactive Levemir FlexTouch U-100 Insulin 100 unit/mL (3 mL) subcutaneous pen RxNorm: 569436 Inject 86 Unit(s) Subcutaneous BID 08/05/19 22 022 Inactive d/c 83units BID Lyrica 100 mg capsule RxNorm: 629824 Take 1 Capsule(s) Oral QHS every night at bedtime Take 1 capsule by mouth once daily at bedtime 07/14/19 22 Inactive Lyrica 50 mg capsule RxNorm: 369454 Take 1 Capsule(s) Oral QAM every morning Take 1 capsule by mouth once daily 07/14/19 22 Inactive Levemir FlexTouch U-100 Insulin 100 unit/mL (3 mL) subcutaneous pen RxNorm: 333980 Inject 83 Unit(s) Subcutaneous BID 07/08/19 22 [...] 4 times daily and as needed. Dx:. 06/05/1920/2 022 Inactive ok to substitute with any covered alternative test strip isosorbide mononitrate ER 30 mg tablet,extended release 24 hr RxNorm: 672047 Take 1 Tablet(s) Oral QD 05/05/20 No Stop Date Active hydralazine 50 mg tablet RxNorm: 792964 Take 1 Tablet(s) Oral QID 05/05/20 21 022 Inactive venlafaxine ER 225 mg tablet,extended release 24 hr RxNorm: 016238 Take 1 Tablet(s) Oral QD 05/05/20 Inactive venlafaxine ER 225 mg tablet,extended release 24 hr RxNorm: 026591 Take 1 Tablet(s) Oral QD 05/05/20 022 Inactive hydralazine 50 mg tablet RxNorm: 699974 Take 1 Tablet(s) Oral QID 05/05/20 Inactive aspirin 81 mg tablet,delayed release RxNorm: 670750 Take 1 Tablet(s) Oral QD 03/31/20 21 022 Inactive Zetia 10 mg tablet RxNorm: 056216 Take 1 Tablet(s) Oral QD 03/31/20 Inactive Vitamin D2 1,250 mcg (50,000 unit) capsule RxNorm: 7590564 Take 1 Capsule(s) Oral QW once a week x 12 weeks 03/31/20 022 Inactive Vitamin D2 1,250 mcg (50,000 unit) capsule RxNorm: 0218553 Take 1 Capsule(s) Oral QW once a week 03/31/20 Inactive Zetia 10 mg tablet RxNorm: 110232 Take 1 Tablet(s) Oral QD 03/31/20 21 Inactive hydralazine 25 mg tablet RxNorm: 912504 Take 1 Tablet(s) Oral QID 03/31/20 21 Inactive hydralazine 25 mg tablet RxNorm: 167652 Take 1 Tablet(s) Oral QID 03/31/20 21 Inactive hydralazine 10 mg tablet RxNorm: 202851 Take 1 Tablet(s) Oral QID 03/03/20 021 Inactive cephalexin 500 mg tablet RxNorm: 791612 Take 1 Tablet(s) Oral QID 02/27/20 021 Inactive cephalexin 500 mg tablet RxNorm: 268701 Take 1 Tablet(s) Oral QID 02/27/20 021 Inactive lisinopril 40 mg tablet RxNorm: 764055 Take 1 Tablet(s) Oral QD 02/11/20 023 Inactive Eliquis 5 mg tablet RxNorm: 3569030 Take 1 Tablet(s) Oral BID 01/05/20 022 Inactive Eliquis 5 mg tablet RxNorm: 5960795 Take 2 Tablet(s) Oral QD 01/01/20 021 Inactive Lyrica 50 mg capsule RxNorm: 017929 Take 1 Capsule(s) Oral QAM every morning 12/24/19 021 Inactive Lyrica 100 mg capsule RxNorm: 249538 Take 1 Capsule(s) Oral QHS every night at bedtime 12/24/19 021 Inactive clotrimazole 1 % topical cream RxNorm: 292526 Apply to right foot and toes Topical BID 12/04/19 21 023 Inactive metoprolol succinate ER 200 mg tablet,extended release 24 hr RxNorm: 796485 Take 1 Tablet(s) Oral QD 12/04/19 023 Inactive ciprofloxacin 500 mg tablet RxNorm: 210119 Take 1 Tablet(s) Oral QD 11/30/19 021 Inactive DX ofloxacin otic drops Accu-Chek Guide test strips RxNorm: USE 1 TO CHECK GLUCOSE 4 TIMES DAILY AND NEEDED 11/15/19 21 023 Inactive Blood Glucose Test strips RxNorm: Use 1 Test Strip QID at PRN 11/05/19 21 023 Inactive E11.42 lisinopril 30 mg tablet RxNorm: 556471 Take 1 Tablet(s) Oral QD 10/30/19 21 021 Inactive lisinopril 20 mg tablet RxNorm: 275046 Take 1 Tablet(s) Oral QD 10/23/19 021 Inactive lisinopril 20 mg tablet RxNorm: 255816 Take 1 Tablet(s) Oral QD 10/23/19 21 021 Inactive lisinopril 10 mg tablet RxNorm: 848148 Take 1 Tablet(s) Oral QD 10/02/19 21 021 Inactive icosapent ethyl 1 gram capsule RxNorm: 4593855 Take 2 Capsule(s) (2 gm) Oral BID with meals 09/12/19 022 Inactive Okay to dispense one 2gm tab if you have that available. icosapent ethyl 1 gram capsule RxNorm: 2744973 Take 2 Capsule(s) Oral BID 09/12/19 021 Inactive Okay to dispense one 2gm tab if you have that available. amlodipine 10 mg tablet RxNorm: 801371 Take 1 Tablet(s) Oral QD 09/04/19 Inactive aspirin 81 mg tablet,delayed release RxNorm: 091068 Take 1 Tablet(s) Oral QD 09/04/19 21 021 Inactive Levemir FlexTouch U-100 Insulin 100 unit/mL (3 mL) subcutaneous pen RxNorm: 868374 Inject 150 Unit(s) Subcutaneous BID 09/04/19 022 Inactive venlafaxine ER 150 mg tablet,extended release 24 hr RxNorm: 781168 Take 1 Tablet(s) Oral QD 09/04/19 021 Inactive clotrimazole-betame thasone 1 %-0.05 % topical cream RxNorm: 481076 Apply to rash on red area on left abdomen/chest Topical BID 08/10/19 21 021 Inactive amlodipine 5 mg tablet RxNorm: 740908 Take 1 Tablet(s) Oral QD 07/31/19 21 021 Inactive cephalexin 500 mg tablet RxNorm: 815615 Take 1 Tablet(s) Oral BID BID - Twice Daily 07/31/19 21 021 Inactive Start 08/01/20 pantoprazole 40 mg tablet,delayed release RxNorm: 290357 Take 1 Tablet(s) Oral QAM every morning 07/08/19 Inactive senna 8.6 mg tablet RxNorm: 978241 Take 1 Tablet(s) Oral QD 07/08/19 Inactive pravastatin 80 mg tablet RxNorm: 144434 Take 1 Tablet(s) Oral QHS every night at bedtime 07/08/19 023 Inactive carbamazepine 200 mg tablet RxNorm: 918679 Take 1 Tablet(s) Oral BID 07/08/19 022 Inactive clopidogrel 75 mg tablet RxNorm: 720032 Take 1 Tablet(s) Oral QD 07/08/19 21 021 Inactive Blood Glucose Test strips RxNorm: Use 1 Test Strip QID at PRN 07/08/19 Inactive E11.42 Novolog Flexpen U-100 Insulin aspart 100 unit/mL (3 mL) subcutaneous RxNorm: 8196796 Administer per sliding scale Milliliter(s) Subcutaneous TID 151-200: 10 u; 201-250: 20 u; 251-300: 30 u; 301-350: 40 u; 351-400: 50 u. 07/08/19 21 022 Inactive lisinopril 5 mg tablet RxNorm: 758792 Take 1 Tablet(s) Oral QD 07/08/19 Inactive Novolog Flexpen U-100 Insulin aspart 100 unit/mL (3 mL) subcutaneous RxNorm: 7433906 Inject 85 Unit(s) Subcutaneous TID 07/08/19 Inactive clotrimazole 1 % topical cream RxNorm: 842911 Apply to bilateral groin areas Topical BID 07/08/19 Inactive metoprolol succinate ER 200 mg tablet,extended release 24 hr RxNorm: 217144 Take 1 Tablet(s) Oral QD 07/08/19 Inactive Vitamin D3 25 mcg (1,000 unit) tablet RxNorm: 047038 Take 1 Tablet(s) Oral QD 07/08/19 021 Inactive isosorbide dinitrate 30 mg tablet RxNorm: 463668 Take 1 Tablet(s) Oral QD 07/08/19 21 021 Inactive Levemir FlexTouch U-100 Insulin 100 unit/mL (3 mL) subcutaneous pen RxNorm: 063702 Inject 140 Unit(s) Subcutaneous BID 07/08/19 021 Inactive torsemide 20 mg tablet RxNorm: 766817 Take 1 Tablet(s) Oral QD 07/08/19 21 023 Inactive venlafaxine 75 mg tablet RxNorm: 759634 Take 1 Tablet(s) Oral QD 07/08/19 021 Inactive acetaminophen 500 mg tablet RxNorm: 411462 Take 1 Tablet(s) Oral TID as needed for headache 06/18/19 Inactive acetaminophen 500 mg tablet RxNorm: 683237 Take 1 Tablet(s) Oral TID as needed for headache 06/18/19 021 Inactive Lyrica 100 mg capsule RxNorm: 872587 Take 1 Capsule(s) Oral QHS every night at bedtime 06/11/19 21 021 Inactive Lyrica 50 mg capsule RxNorm: 124470 Take 1 Capsule(s) Oral QAM every morning 06/10/19 021 Inactive hydrocortisone 2.5 % topical cream RxNorm: 820117 Apply to bilateral groin creases Topical BID 05/15/20 20 021 Inactive clotrimazole 1 % topical cream RxNorm: 003669 Apply to bilateral groin areas Topical BID 05/15/20 20 021 Inactive Lyrica 50 mg capsule RxNorm: 960593 Take 1 Capsule(s) Oral QAM every morning 05/14/20 20 020 Inactive Lyrica 100 mg capsule RxNorm: 080270 Take 1 Capsule(s) Oral QHS every night [...] Inactive Nystop 100,000 unit/gram topical powder RxNorm: 184496 Apply to abd folds, under breasts and L side of groin Topical BID x 14 days, then BID PRN 04/08/20 20 Inactive dx: yeast dermatitis Lyrica 100 mg capsule RxNorm: 019702 Take 1 Capsule(s) Oral QHS every night at bedtime 03/13/20 20 Inactive Lyrica 50 mg capsule RxNorm: 691827 Take 1 Capsule(s) Oral QAM every morning 03/13/20 20 Inactive ketoconazole 2 % shampoo RxNorm: 726846 Apply Topical two times a week with showers 03/11/20 20 Inactive cholecalciferol (vitamin D3) 50 mcg (2,000 unit) tablet RxNorm: 010758 Take 1 Tablet(s) Oral QD 03/11/20 20 Inactive Zetia 10 mg tablet RxNorm: 507219 Take 1 Tablet(s) Oral QD 03/07/20 20 021 Inactive Zetia 10 mg tablet RxNorm: 767380 Take 1 Tablet(s) Oral QD 03/07/20 20 Inactive Lyrica 50 mg capsule RxNorm: 686706 Take 1 Capsule(s) Oral QAM every morning 02/15/20 20 Inactive Lyrica 100 mg capsule RxNorm: 323958 Take 1 Capsule(s) Oral QHS every night at bedtime 02/15/20 20 Inactive Lyrica 100 mg capsule RxNorm: 802800 Take 1 Capsule(s) Oral QHS every night at bedtime 02/15/20 20 Inactive Lyrica 50 mg capsule RxNorm: 975501 Take 1 Capsule(s) Oral QAM every morning 02/15/20 20 020 Inactive polyethylene glycol 3350 17 gram/dose oral powder RxNorm: 829218 Take 17=1 capful Gram(s) Oral BID as needed mix with 4-8oz of liquid 06/12/19 22 Active metoprolol succinate ER 200 mg tablet,extended release 24 hr RxNorm: 618569 Take 1 Tablet(s) Oral QD 08/12/19 23 Active loperamide 2 mg capsule RxNorm: 224250 Take 1 Capsule(s) Oral QID as needed 06/12/19 22 Active hydralazine 50 mg tablet RxNorm: 568672 Take 1 Tablet(s) Oral QID 08/12/19 23 Active venlafaxine ER 75 mg capsule,extended release 24 hr RxNorm: 038867 Take 3 Capsule(s) Oral QD 06/12/19 22 023 Inactive icosapent ethyl 1 gram capsule RxNorm: 3116689 Take 2 Capsule(s) (2 gm) Oral BID with meals 10/07/19 23 023 Inactive Okay to dispense one 2gm tab if you have that available. Levemir FlexTouch U-100 Insulin 100 unit/mL (3 mL) subcutaneous pen RxNorm: 436765 Inject 80 Unit(s) Subcutaneous BID 07/14/19 23 023 Inactive Novolog Flexpen U-100 Insulin aspart 100 unit/mL (3 mL) subcutaneous RxNorm: 5260471 Insert 30 Unit(s) Subcutaneous TID with meals 10/08/19 22 022 Inactive Medication Administered No Medication Administered data Reason For Visit No Reason For Visit data Plan of Care Planned Activity Notes Codes Status Date Referral: [facility] WPtel: [address], [address] [id number] [place] Referral Records Received 09/21/2022 Referral: [facility] WPtel: [address] [id number] [place] Referral Completed 05/28/2021 Referral: General Cardiology Referral Complet ed 01/03/2021 Referral: General Psychologist Referral Close d Referral: General Psychiatrist Referral Need Additional Information From Field Instructions Comment Date Leonid is a?? Male being seen living at [facility]. Initial [facility] visit 01/2020. PMHx including DMII, CAD w/ 5 stents, Depression, Seizure Disorder and CKD stage 3. He moved into [facility] in 12/2019 but after a hospitalization 05/2021 he moved to the [facility] to have closer nursing attention.??Sister Jyotsna involved in his care cell# [phone]??Guardian: Don (tapan met in person 09/01/21), now has Lexii (same group as don)Lab Schedule: * 02/08/2023
--- OUTSIDE RECORDS SUMMARY | 2023-04-01 08:38 | XMS_ITS | CCD ---
Author Name Unknown Organization Unknown Care Team Providers Care Gear Technician Name Role Phone Chelo Fonseca PA-C Primary Care Provider Unavaila ble Chelo Fonseca PA-C Chronic Care Management Nicole archer Summary Purpose DataExchange Insurance Providers Payer name Policy type / Coverage type Covered alliance party ID Effective Begin Date Effective End Date [place] B [id number] Unknown Unknown [place] B [id number] Unknown Unknown Family history Sister Brittany Suggs [...] Custodial 09/03/[address]: 8034514 Non-Smoker / No History of Smoking 09/02/[address]: 000109292 No Alcohol Consum ption 09/02/2020 Allergies, Adverse Reactions, Alerts Substance Reaction Codes Entered Date Inactivated Date Status LISINOPRIL RxNorm: 56289 02/12/2020 No Inactive Da te Active Metformin [...] 03/03/2023 Active Coronary artery disease invo lving [place] coronary artery of [place] heart, angina presence unspecified ICD-10: I25.10 [...] immunization ICD-10: Z23 ICD-9: V03.89 02/10/2022 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 ICD-10: Z79.4 02/10 [...] strip clotrimazole 1 % topical cream RxNorm: 129043 Take apply topically to abdominal folds twice daily for 14 days 03/12/20 023 Active Ozempic 1 mg/dose (4 mg/3 mL) subcutaneous pen injector RxNorm: 0948292 Inject 1 Milligram(s) Subcutaneous QW once a week 03/11/20 023 Inactive rosuvastatin 20 mg tablet RxNorm: 165025 Take 1 Tablet(s) Oral QD 02/26/20 024 Active d/c pravastatin 80mg Ozempic 1 mg/dose (4 mg/3 mL) subcutaneous pen injector RxNorm: 0915452 Inject 1 Milligram(s) Subcutaneous QW once a week 02/20/20 023 Inactive pregabalin 150 mg capsule RxNorm: 860728 Take 1 Capsule(s) Oral HS at bed time 02/19/20 23 023 Inactive pregabalin 100 mg capsule RxNorm: 751380 Take 1 Capsule(s) Oral QAM every morning 02/18/20 23 024 Active FreeStyle Chema 2 Sensor kit RxNorm: use as directed 02/04/20 23 024 Active venlafaxine ER 75 mg capsule,extended release 24 hr RxNorm: 794233 Take 3 Capsule(s) Oral QD 02/04/20 23 023 Inactive FreeStyle Chema 2 Sensor kit RxNorm: use as directed 02/04/20 23 023 Inactive fluconazole 150 mg tablet RxNorm: 197785 Take 1 Tablet(s) Oral on day 3 and on day 6 02/03/20 23 024 Active chlorthalidone 25 mg tablet RxNorm: 466531 Take 1 Tablet(s) Oral QAM every morning 02/03/20 23 No Stop Date Active venlafaxine ER 150 mg capsule,extended release 24 hr RxNorm: 479051 Take 1 Capsule(s) Oral QD 02/03/20 023 Inactive acetaminophen 500 mg tablet RxNorm: 117002 1 TABLET ORALLY 3 TIMES DAILY (MAX APAP:4GM/24HR) 12/15/19 024 Active potassium chloride ER 20 mEq tablet,extended release RxNorm: 176915 Take 1 Tablet(s) Oral BID 12/09/19 023 Inactive d/c 20mEq once daily (sent from hospital) clotrimazole 1 % topical cream RxNorm: 089796 apply 1g topically to top of feet and in between toes BID 12/09/19 023 Inactive nystatin 100,000 unit/gram topical powder RxNorm: 692934 APPLY TO AFFECTED AREAS TOPICALLY 2 TIMES DAILY 11/21/19 23 024 Active Nystop 100,000 unit/gram topical powder RxNorm: 300094 Apply to abd folds, under breasts and L side of groin Topical BID x 14 days, then BID PRN 11/20/19 023 Inactive dx: yeast dermatitis [place] Ultra Strength 4 %-30 %-10 % topical cream RxNorm: 631949 Apply 1 Gram(s) Topical QID PRN to feet and legs for neuropathic pain 11/11/19 024 Active hydrocortisone 2.5 % topical cream RxNorm: 745965 Apply 1/2 Gram(s) Topical BID as needed 11/10/19 No Stop Date Active clotrimazole 1 % topical cream RxNorm: 296958 Apply 1/2 Gram(s) Topical BID Apply to affected areas of groin, periarea, and abdominal topically 2 times daily 11/10/19 023 Inactive Levemir FlexPen 100 unit/mL (3 mL) solution subcutaneous insulin pen RxNorm: 973968 Inject 30 Unit(s) Subcutaneous BID 10/07/19 024 Active Humulin R U-500 (Concentrated) Insulin 500 unit/mL subcutaneous soln RxNorm: 125033 Inject 100 Unit(s) Subcutaneous TID 10/07/19 024 Active Ozempic 0.25 mg or 0.5 mg (2 mg/3 mL) subcutaneous pen injector RxNorm: 7191282 Inject 1/2 Milligram(s) Subcutaneous QW once a week 10/07/19 024 Active aripiprazole 15 mg tablet RxNorm: 309890 1/2 TAB (7.5MG) ORALLY DAILY (DX:MAJOR DEPRESSIVE DISORDER) 09/23/19 23 023 Inactive Lancets,Thin 28 gauge RxNorm: Use 1 as directed QID 09/15/19 23 024 Active Accu-Chek Guide test strips RxNorm: Use 1 Test Strip QID 09/15/19 023 Inactive ok to substitute with any covered alternative test strip torsemide 20 mg tablet RxNorm: 937292 Take 1 Tablet(s) Oral BID 09/09/19 024 Active d/c once daily dosing carvedilol 25 mg tablet RxNorm: 642523 Take 1 Tablet(s) Oral QD 08/25/19 23 024 Active pregabalin 150 mg capsule RxNorm: 777088 1 Capsule(s) Oral HS at bed time 08/18/19 23 023 Inactive pregabalin 100 mg capsule RxNorm: 262037 1 Capsule(s) Oral QAM every morning 08/18/19 023 Inactive carvedilol 25 mg tablet RxNorm: 664314 1 Tablet(s) Oral QD 07/28/19 23 023 Inactive lisinopril 20 mg tablet RxNorm: 832928 Give 1 Tablet(s) Oral QD 07/28/19 23 023 Inactive Lyrica 150 mg capsule RxNorm: 111674 Take 1 Capsule(s) Oral QHS every night at bedtime 07/19/19 23 023 Inactive d/c 100mg dose Diflucan 150 mg tablet RxNorm: 482282 Take 1 Tablet(s) Oral QD repeat on day 3 and 6 07/19/19 23 023 Inactive pregabalin 100 mg capsule RxNorm: 401548 Take 1 Capsule(s) Oral QAM every morning 07/19/19 23 023 Inactive gatifloxacin 0.5 % eye drops RxNorm: 602670 Instill 1 Drop(s) as directed TID Instill 1 drop in to affected eye(s) starting 1 day prior to surgery and continue until gone (do not exceed 4 weeks). 07/13/19 23 023 Inactive carvedilol 25 mg tablet RxNorm: 784907 2 Tablet(s) Oral BID 07/13/19 023 Inactive Humulin R Regular U-100 Insulin 100 unit/mL injection solution RxNorm: 004046 85 Unit(s) Injection TID 07/13/19 23 023 Inactive ketorolac 0.5 % eye drops RxNorm: 626820 Instill 1 Drop(s) as directed QID Instill 1 drop into affected eye(s) 4 times daily starting 1 day prior to surgery and continue until gone (do not exceed 4 weeks). 07/13/19 023 Inactive Diflucan 150 mg tablet RxNorm: 539623 Take 1 Tablet(s) Oral QD repeat on day 3 and 6 06/30/19 23 023 Inactive Accu-Chek Guide test strips RxNorm: Use 1 Test Strip QID Use 1 test strip to monitor blood glucose 4 times daily and as needed. Dx:E11.42. 06/23/19 23 023 Inactive ok to substitute with any covered alternative test strip dextromethorphan-gu aifenesin 10 mg-100 mg/5 mL oral liquid RxNorm: 057129 Take 10 Milliliter(s) Oral every 4 hours as needed for cough 06/19/19 23 023 Inactive dextromethorphan-gu aifenesin 10 mg-100 mg/5 mL oral liquid RxNorm: 124575 Take 10 Milliliter(s) Oral every 4 hours as needed for cough 06/19/19 23 023 Inactive Lyrica 150 mg capsule RxNorm: 775419 Take 1 Capsule(s) Oral QHS every night at bedtime 06/18/19 23 023 Inactive d/c 100mg dose aripiprazole 15 mg tablet RxNorm: 328399 1/2 TAB (7.5MG) ORALLY DAILY (DX:MAJOR DEPRESSIVE DISORDER) 01/20/ 023 Inactive pregabalin 100 mg capsule RxNorm: 639652 1 Capsule(s) Oral QAM every morning 06/02/19 023 Inactive Banophen 50 mg capsule RxNorm: 4262520 Take 1 Capsule(s) Oral Q6H every 6 hours as needed 05/19/19 No Stop Date Active Novolog Flexpen U-100 Insulin aspart 100 unit/mL (3 mL) subcutaneous RxNorm: 6082558 Inject 10 Unit(s) Subcutaneous QHS every night at bedtime with nighttime snack 04/08/20 022 Inactive Novolog Flexpen U-100 Insulin aspart 100 unit/mL (3 mL) subcutaneous RxNorm: 1712807 Inject 42 Unit(s) Subcutaneous TID in addition to sliding scale 04/08/20 Inactive d/c 36u albuterol sulfate HFA 90 mcg/actuation aerosol inhaler RxNorm: 5887626 Take 2 Puff(s) Inhalation Q4H every four hours as needed as needed for SOB, cough, or wheezing 04/07/20 030 Active Banophen 50 mg capsule RxNorm: 4394968 Take 1 Capsule(s) Oral Q6H every 6 hours as needed 04/06/20 023 Inactive diphenhydramine 50 mg tablet RxNorm: 8571394 Take 1 Tablet(s) Oral Q6H every 6 hours as needed 04/06/20 022 Inactive diphenhydramine 50 mg tablet RxNorm: 0893305 1 Tablet(s) Oral Q6H every 6 hours as needed 04/06/20 022 Inactive Abilify 15 mg tablet RxNorm: 924324 1/2 Tablet(s) Oral QD 03/10/20 22 023 Inactive Shingrix (PF) 50 mcg/0.5 mL intramuscular suspension, kit RxNorm: 4854738 Administer 1/2 Milliliter(s) Intramuscular QD one time shingrix step 2 ( step 1 given 11/04/21) WITH needle - Nursing please administer upon arrival and once administered post a bridge message with date of administration, chief juvenile probation officer, expiration date, and lot# so we can update [facility] 02/18/20 22 022 Inactive dispense with needle Shingrix (PF) 50 mcg/0.5 mL intramuscular suspension, kit RxNorm: 2669412 Administer 1/2 Milliliter(s) Intramuscular QD one time shingrix step 2 ( step 1 given 11/04/21) WITH needle - Nursing please administer upon arrival and once administered post a bridge message with date of administration, chief juvenile probation officer, expiration date, and lot# so we can update [facility] 02/18/20 22 Inactive dispense with needle polyethylene glycol 3350 17 gram/dose oral powder RxNorm: 039682 Take 17=1 capful Gram(s) Oral QD mix with 4-8oz of liquid 01/08/20 22 023 Inactive take this in addition to BID prn order Lyrica 100 mg capsule RxNorm: 703580 Take 1 Capsule(s) Oral QAM every morning 01/08/20 22 022 Inactive d/c 50mg dose acetaminophen 500 mg tablet RxNorm: 739722 Take 1 Tablet(s) Oral TID 01/08/20 22 022 Inactive d/c PRN order Lyrica 150 mg capsule RxNorm: 985939 Take 1 Capsule(s) Oral QHS every night at bedtime 01/08/20 22 023 Inactive d/c 100mg dose Abilify 5 mg tablet RxNorm: 559858 Take 1 Tablet(s) Oral QD take 1 tab po QD #30 refill 5 dx: MDD 12/12/19 22 022 Inactive Abilify 5 mg tablet RxNorm: 928185 Take 1 Tablet(s) Oral QD take 1 tab po QD #30 refill 5 dx: MDD 12/12/19 22 022 Inactive Novolog Flexpen U-100 Insulin aspart 100 unit/mL (3 mL) subcutaneous RxNorm: 5379140 Inject 42 Unit(s) Subcutaneous TID in addition to sliding scale 12/10/19 22 022 Inactive d/c 36u chlorthalidone 25 mg tablet RxNorm: 106027 Take 1 Tablet(s) Oral QAM every morning 12/10/19 22 023 Inactive pregabalin 50 mg capsule RxNorm: 876177 Take 1 Capsule(s) Oral QAM every morning 11/12/19 22 022 Inactive tetanus-diphtheria toxoids-Td 2 Lf unit-2 Lf unit/0.5 mL IM suspension RxNorm: 139 Take 0.5 Miscellaneous Intramuscular 11/12/19 22 022 Inactive need tdap - nursing to administer upon arrival pregabalin 50 mg capsule RxNorm: 622813 Take 1 Capsule(s) Oral QAM every morning 10/16/19 22 022 Inactive pregabalin 50 mg capsule RxNorm: 689950 Take 1 Capsule(s) Oral QAM every morning 10/16/19 22 022 Inactive pregabalin 50 mg capsule RxNorm: 443557 1 Capsule(s) Oral QAM every morning 10/15/19 22 022 Inactive Shingrix (PF) 50 mcg/0.5 mL intramuscular suspension, kit RxNorm: 2348427 Administer 1/2 Milliliter(s) Intramuscular one time Nursing please administer upon arrival and once administered post a bridge message with date of administration, chief juvenile probation officer, expiration date, and lot# so we can update [facility]. 10/09/19 22 022 Inactive shingrix step 1 Shingrix (PF) 50 mcg/0.5 mL intramuscular suspension, kit RxNorm: 4445682 Administer 1/2 Milliliter(s) Intramuscular one time Nursing please administer upon arrival and once administered post a bridge message with date of administration, chief juvenile probation officer, expiration date, and lot# so we can update [facility]. 10/09/19 22 022 Inactive shingrix step 1 cholecalciferol (vitamin D3) 1,250 mcg (50,000 unit) capsule RxNorm: 744044 Take 1 Capsule(s) Oral QW once a [...] aspart 100 unit/mL (3 mL) subcutaneous RxNorm: 0177576 Inject 10 Unit(s) Subcutaneous QHS every night at bedtime with nighttime snack 10/08/19 22 Inactive Shingrix (PF) 50 mcg/0.5 mL intramuscular suspension, kit RxNorm: 0244221 ADMINISTER 2-DOSE SERIES PER CDC GUIDELINES 10/08/19 22 Active Shingrix (PF) 50 mcg/0.5 mL intramuscular suspension, kit RxNorm: 8833832 ADMINISTER 2-DOSE SERIES PER CDC GUIDELINES 10/08/19 22 Inactive Novolog Flexpen U-100 Insulin aspart 100 unit/mL (3 mL) subcutaneous RxNorm: 8940838 Inject 36 Unit(s) Subcutaneous TID in addition to sliding scale 10/08/19 22 Inactive Novofine Autocover 30 gauge x 1/3 needle RxNorm: Use 1 Miscellaneous UD as directed Use 1 needle as directed to administer insulin 5 times a day Dx:E11.42. 10/03/19 Inactive ok to substitute with any covered alternative pen needle benzoyl peroxide 10 % topical cleanser RxNorm: 254052 Apply 1 Application Topical QD apply to face, wash rinse and dry once daily (may change to QOD if drying) 08/19/19 22 022 Inactive (%covered by insurance) #60ml refill 11 dx: acne benzoyl peroxide 10 % topical cleanser RxNorm: 339949 Apply 1 Application Topical QD apply to face, wash rinse and dry once daily (may change to QOD if drying) 08/19/19 22 022 Inactive (%covered by insurance) #60ml refill 11 dx: acne benzoyl peroxide 10 % topical cleanser RxNorm: 720100 Apply 1 Application Topical QD apply to face, wash rinse and dry once daily (may change to QOD if drying) 08/19/19 22 022 Inactive (%covered by insurance) #60ml refill 11 dx: acne Lyrica 50 mg capsule RxNorm: 278113 Take 1 Capsule(s) Oral QAM every morning Take 1 capsule by mouth once daily 08/19/19 22 022 Inactive benzoyl peroxide 10 % topical cleanser RxNorm: 710719 Apply 1 Application Topical QD apply to face, wash rinse and dry once daily (may change to QOD if drying) 08/19/19 22 022 Inactive (%covered by insurance) #60ml refill 11 dx: acne Lyrica 100 mg capsule RxNorm: 941098 Take 1 Capsule(s) Oral QHS every night at bedtime Take 1 capsule by mouth once daily at bedtime 08/19/19 22 022 Inactive Lyrica 100 mg capsule RxNorm: 122743 Take 1 Capsule(s) Oral QHS every night at bedtime Take 1 capsule by mouth once daily at bedtime 08/16/19 022 Inactive Lyrica 50 mg capsule RxNorm: 116589 Take 1 Capsule(s) Oral QAM every morning Take 1 capsule by mouth once daily 08/16/19 22 022 Inactive Levemir FlexTouch U-100 Insulin 100 unit/mL (3 mL) subcutaneous pen RxNorm: 816104 Inject 86 Unit(s) Subcutaneous BID 08/05/19 22 022 Inactive d/c 83units BID Lyrica 100 mg capsule RxNorm: 373636 Take 1 Capsule(s) Oral QHS every night at bedtime Take 1 capsule by mouth once daily at bedtime 07/14/19 022 Inactive Lyrica 50 mg capsule RxNorm: 804740 Take 1 Capsule(s) Oral QAM every morning Take 1 capsule by mouth once daily 07/14/19 22 022 Inactive Levemir FlexTouch U-100 Insulin 100 unit/mL (3 mL) subcutaneous pen RxNorm: 715044 Inject 83 Unit(s) Subcutaneous BID 07/08/19 22 022 Inactive d/c 80units BID Accu-Chek Guide Glucose Meter RxNorm: Use 1 Miscellaneous UD as directed Use glucose meter to monitor blood glucose 4 times daily and as needed. Dx:.06/05/19 022 Inactive ok to substitute with any [...] 30 mg tablet,extended release 24 hr RxNorm: 217188 Take 1 Tablet(s) Oral QD 05/05/20 No Stop Date Active hydralazine 50 mg tablet RxNorm: 106937 Take 1 Tablet(s) Oral QID 05/05/20 21 022 Inactive venlafaxine ER 225 mg tablet,extended release 24 hr RxNorm: 489802 Take 1 Tablet(s) Oral QD 05/05/20 21 021 Inactive venlafaxine ER 225 mg tablet,extended release 24 hr RxNorm: 703718 Take 1 Tablet(s) Oral QD 05/05/20 21 022 Inactive hydralazine 50 mg tablet RxNorm: 616743 Take 1 Tablet(s) Oral QID 05/05/20 21 021 Inactive aspirin 81 mg tablet,delayed release RxNorm: 741350 Take 1 Tablet(s) Oral QD 03/31/20 Inactive Zetia 10 mg tablet RxNorm: 485522 Take 1 Tablet(s) Oral QD 03/31/20 Inactive Vitamin D2 1,250 mcg (50,000 unit) capsule RxNorm: 4558805 Take 1 Capsule(s) Oral QW once a week x 12 weeks 03/31/20 022 Inactive Vitamin D2 1,250 mcg (50,000 unit) capsule RxNorm: 7518925 Take 1 Capsule(s) Oral QW once a week 03/31/20 Inactive Zetia 10 mg tablet RxNorm: 626658 Take 1 Tablet(s) Oral QD 03/31/20 Inactive hydralazine 25 mg tablet RxNorm: 317407 Take 1 Tablet(s) Oral QID 03/31/20 021 Inactive hydralazine 25 mg tablet RxNorm: 853969 Take 1 Tablet(s) Oral QID 03/31/20 021 Inactive hydralazine 10 mg tablet RxNorm: 713932 Take 1 Tablet(s) Oral QID 03/03/20 021 Inactive cephalexin 500 mg tablet RxNorm: 835562 Take 1 Tablet(s) Oral QID 02/27/20 021 Inactive cephalexin 500 mg tablet RxNorm: 711515 Take 1 Tablet(s) Oral QID 02/27/20 021 Inactive lisinopril 40 mg tablet RxNorm: 390749 Take 1 Tablet(s) Oral QD 02/11/20 023 Inactive Eliquis 5 mg tablet RxNorm: 4553616 Take 1 Tablet(s) Oral BID 01/05/20 21 022 Inactive Eliquis 5 mg tablet RxNorm: 7589019 Take 2 Tablet(s) Oral QD 01/01/20 21 021 Inactive Lyrica 50 mg capsule RxNorm: 675418 Take 1 Capsule(s) Oral QAM every morning 12/24/19 21 021 Inactive Lyrica 100 mg capsule RxNorm: 756471 Take 1 Capsule(s) Oral QHS every night at bedtime 12/24/19 21 021 Inactive clotrimazole 1 % topical cream RxNorm: 498840 Apply to right foot and toes Topical BID 12/04/19 21 023 Inactive metoprolol succinate ER 200 mg tablet,extended release 24 hr RxNorm: 096579 Take 1 Tablet(s) Oral QD 12/04/19 21 023 Inactive ciprofloxacin 500 mg tablet RxNorm: 671654 Take 1 Tablet(s) Oral QD 11/30/19 21 021 Inactive DX ofloxacin otic drops Accu-Chek Guide test strips RxNorm: USE 1 TO CHECK GLUCOSE 4 TIMES DAILY AND NEEDED 11/15/19 21 023 Inactive Blood Glucose Test strips RxNorm: Use 1 Test Strip QID at PRN 11/05/19 21 023 Inactive E11.42 lisinopril 30 mg tablet RxNorm: 453196 Take 1 Tablet(s) Oral QD 10/30/19 021 Inactive lisinopril 20 mg tablet RxNorm: 447280 Take 1 Tablet(s) Oral QD 10/23/19 21 021 Inactive lisinopril 20 mg tablet RxNorm: 328145 Take 1 Tablet(s) Oral QD 10/23/19 21 021 Inactive lisinopril 10 mg tablet RxNorm: 029743 Take 1 Tablet(s) Oral QD 10/02/19 21 021 Inactive icosapent ethyl 1 gram capsule RxNorm: 0935075 Take 2 Capsule(s) (2 gm) Oral BID with meals 09/12/19 21 022 Inactive Okay to dispense one 2gm tab if you have that available. icosapent ethyl 1 gram capsule RxNorm: 7825307 Take 2 Capsule(s) Oral BID 09/12/19 21 021 Inactive Okay to dispense one 2gm tab if you have that available. amlodipine 10 mg tablet RxNorm: 601971 Take 1 Tablet(s) Oral QD 09/04/19 21 022 Inactive aspirin 81 mg tablet,delayed release RxNorm: 564923 Take 1 Tablet(s) Oral QD 09/04/19 21 021 Inactive Levemir FlexTouch U-100 Insulin 100 unit/mL (3 mL) subcutaneous pen RxNorm: 919288 Inject 150 Unit(s) Subcutaneous BID 09/04/19 21 022 Inactive venlafaxine ER 150 mg tablet,extended release 24 hr RxNorm: 471952 Take 1 Tablet(s) Oral QD 09/04/19 21 Inactive clotrimazole-betame thasone 1 %-0.05 % topical cream RxNorm: 829674 Apply to rash on red area on left abdomen/chest Topical BID 08/10/19 21 Inactive amlodipine 5 mg tablet RxNorm: 975758 Take 1 Tablet(s) Oral QD 07/31/19 21 Inactive cephalexin 500 mg tablet RxNorm: 814284 Take 1 Tablet(s) Oral BID BID - Twice Daily 07/31/19 21 021 Inactive Start 08/01/20 pantoprazole 40 mg tablet,delayed release RxNorm: 938297 Take 1 Tablet(s) Oral QAM every morning 07/08/19 022 Inactive senna 8.6 mg tablet RxNorm: 384126 Take 1 Tablet(s) Oral QD 07/08/19 022 Inactive carbamazepine 200 mg tablet RxNorm: 160110 Take 1 Tablet(s) Oral BID 07/08/19 022 Inactive clopidogrel 75 mg tablet RxNorm: 221633 Take 1 Tablet(s) Oral QD 07/08/19 021 Inactive Blood Glucose Test strips RxNorm: Use 1 Test Strip QID at PRN 07/08/19 21 021 Inactive E11.42 Novolog Flexpen U-100 Insulin aspart 100 unit/mL (3 mL) subcutaneous RxNorm: 8358485 Administer per sliding scale Milliliter(s) Subcutaneous TID 151-200: 10 u; 201-250: 20 u; 251-300: 30 u; 301-350: 40 u; 351-400: 50 u. 07/08/19 022 Inactive lisinopril 5 mg tablet RxNorm: 860359 Take 1 Tablet(s) Oral QD 07/08/19 021 Inactive Novolog Flexpen U-100 Insulin aspart 100 unit/mL (3 mL) subcutaneous RxNorm: 5660787 Inject 85 Unit(s) Subcutaneous TID 07/08/19 022 Inactive pravastatin 80 mg tablet RxNorm: 140227 Take 1 Tablet(s) Oral QHS every night at bedtime 07/08/19 023 Inactive clotrimazole 1 % topical cream RxNorm: 723844 Apply to bilateral groin areas Topical BID 07/08/19 022 Inactive metoprolol succinate ER 200 mg tablet,extended release 24 hr RxNorm: 965946 Take 1 Tablet(s) Oral QD 07/08/19 021 Inactive Vitamin D3 25 mcg (1,000 unit) tablet RxNorm: 523755 Take 1 Tablet(s) Oral QD 07/08/19 021 Inactive isosorbide dinitrate 30 mg tablet RxNorm: 389742 Take 1 Tablet(s) Oral QD 07/08/19 021 Inactive Levemir FlexTouch U-100 Insulin 100 unit/mL (3 mL) subcutaneous pen RxNorm: 117735 Inject 140 Unit(s) Subcutaneous BID 07/08/19 021 Inactive torsemide 20 mg tablet RxNorm: 330940 Take 1 Tablet(s) Oral QD 07/08/19 023 Inactive venlafaxine 75 mg tablet RxNorm: 197627 Take 1 Tablet(s) Oral QD 07/08/19 021 Inactive acetaminophen 500 mg tablet RxNorm: 345715 Take 1 Tablet(s) Oral TID as needed for headache 06/18/19 021 Inactive acetaminophen 500 mg tablet RxNorm: Take 1 Tablet(s) Oral TID as needed for headache 06/18/19 021 Inactive Lyrica 100 mg capsule RxNorm: 394341 Take 1 Capsule(s) Oral QHS every night at bedtime 06/11/19 21 021 Inactive Lyrica 50 mg capsule RxNorm: 120117 Take 1 Capsule(s) Oral QAM every morning 06/10/19 21 Inactive hydrocortisone 2.5 % topical cream RxNorm: 164275 Apply to bilateral groin creases Topical BID 05/15/20 20 021 Inactive clotrimazole 1 % topical cream RxNorm: 660066 Apply to bilateral groin areas Topical BID 05/15/20 20 021 Inactive Lyrica 50 mg capsule RxNorm: 568969 Take 1 Capsule(s) Oral QAM every morning 05/14/20 20 Inactive Lyrica 100 mg capsule RxNorm: 392639 Take 1 Capsule(s) Oral QHS every night [...] Inactive Nystop 100,000 unit/gram topical powder RxNorm: 300120 Apply to abd folds, under breasts and L side of groin Topical BID x 14 days, then BID PRN 04/08/20 20 020 Inactive dx: yeast dermatitis Lyrica 100 mg capsule RxNorm: 753269 Take 1 Capsule(s) Oral QHS every night at bedtime 03/13/20 20 Inactive Lyrica 50 mg capsule RxNorm: 144628 Take 1 Capsule(s) Oral QAM every morning 03/13/20 20 Inactive ketoconazole 2 % shampoo RxNorm: 907572 Apply Topical two times a week with showers 03/11/20 20 Inactive cholecalciferol (vitamin D3) 50 mcg (2,000 unit) tablet RxNorm: 335976 Take 1 Tablet(s) Oral QD 03/11/20 20 Inactive Zetia 10 mg tablet RxNorm: 273220 Take 1 Tablet(s) Oral QD 03/07/20 20 Inactive Zetia 10 mg tablet RxNorm: 984394 Take 1 Tablet(s) Oral QD 03/07/20 20 Inactive Lyrica 50 mg capsule RxNorm: 480603 Take 1 Capsule(s) Oral QAM every morning 02/15/20 20 Inactive Lyrica 100 mg capsule RxNorm: 211185 Take 1 Capsule(s) Oral QHS every night at bedtime 02/15/20 20 Inactive Lyrica 100 mg capsule RxNorm: 095198 Take 1 Capsule(s) Oral QHS every night at bedtime 02/15/20 Inactive Lyrica 50 mg capsule RxNorm: 029332 Take 1 Capsule(s) Oral QAM every morning 02/15/20 20 Inactive polyethylene glycol 3350 17 gram/dose oral powder RxNorm: 744779 Take 17=1 capful Gram(s) Oral BID as needed mix with 4-8oz of liquid 06/12/19 Active metoprolol succinate ER 200 mg tablet,extended release 24 hr RxNorm: 963623 Take 1 Tablet(s) Oral QD 08/12/19 23 Active loperamide 2 mg capsule RxNorm: 237879 Take 1 Capsule(s) Oral QID as needed 06/12/19 22 Active hydralazine 50 mg tablet RxNorm: 322473 Take 1 Tablet(s) Oral QID 08/12/19 23 Active venlafaxine ER 75 mg capsule,extended release 24 hr RxNorm: 073020 Take 3 Capsule(s) Oral QD 06/12/19 023 Inactive icosapent ethyl 1 gram capsule RxNorm: 4836087 Take 2 Capsule(s) (2 gm) Oral BID with meals 10/07/19 023 Inactive Okay to dispense one 2gm tab if you have that available. Levemir FlexTouch U-100 Insulin 100 unit/mL (3 mL) subcutaneous pen RxNorm: 578522 Inject 80 Unit(s) Subcutaneous BID 07/14/19 023 Inactive Novolog Flexpen U-100 Insulin aspart 100 unit/mL (3 mL) subcutaneous RxNorm: 9058750 Insert 30 Unit(s) Subcutaneous TID with meals 10/08/19 022 Inactive Medication Administered No Medication Administered data Reason For Visit No Reason For Visit data Plan of Care Planned Activity Notes Codes Status Date Referral: [facility] WPtel: [address], [address] [id number] [place] Referral Records Received 09/21/2022 Referral: [facility] WPtel: [address] [id number] [place] Referral Completed 05/28/2021 Referral: General Cardiology Referral Complet ed 01/03/2021 Referral: General Psychologist Referral Close d Referral: General Psychiatrist Referral Need Additional Information From Field Instructions Comment Date Leonid is a?? Male being seen living at [facility]. Initial [facility] visit 01/2020. PMHx including DMII, CAD w/ 5 stents, Depression, Seizure Disorder and CKD stage 3. He moved into [facility] in 12/2019 but after a hospitalization 05/2021 he moved to the [facility] to have closer nursing attention.??Sister Jyotsna involved in his care cell# [phone]??Guardian: Don (tapan met in person 09/01/21), now has Lexii (same group as don)Lab Schedule: * 02/08/2023
--- NOTE | 2023-04-01 08:51 | CRLHL7_ITS ---
For Patients: As a result of the Cures Act, medical imaging exams and procedure reports are released immediately into your electronic medical record. You may view this report before your referring provider. If you have questions, please contact your health care provider. INDICATION: Short of breath COMPARISON: Earlier the same day, 01/22/2023 TECHNIQUE: PA and lateral 2 view chest radiograph. FINDINGS: The lungs are well expanded. Patchy to reticular right lower lobe opacities now better visualized. The previously seen left retrocardiac opacity has resolved entirely and was likely due to overlapping structures. No pulmonary edema. No pleural effusion. No pneumothorax. No pneumomediastinum. Normal cardiomediastinal silhouette. Bones: Normal for age. IMPRESSION: Patchy right lower lobe opacities may be infectious. Dictated by Odalis Koroma MD @ 04/01/2023 9:17:04 AM (Electronically Signed)
[2023-04-01 09:03] LABS: RBC Urine 0-2 (0-2); Squamous Epithelial Cell Urine Few (None-Few); WBC Urine 0-2 (0-5)
[2023-04-01 09:05] LABS: Troponin, Point-of-Care* 0.01 ng/ml (0.01-0.04)
[2023-04-01 09:08] LABS: Basophils Percent Auto 0.4 % (0.0-3.0); Hematocrit 39.3 % (37.0-53.0); Hemoglobin* 13.3 gm/dL (13.5-17.5); Immature Granulocytes Pct Auto 0.2 %; Lymphocytes Percent Auto 38.6 % (20-44); Mean Corpuscular HGB Conc 34 gm/dL (32-36); Mean Corpuscular Hemoglobin 29 pg (26-34); Mean Corpuscular Volume 86 fL (80-100); Monocytes Percent Auto 6.7 % (0.0-11.0); Neutrophils Percent Auto 50.1 % (42.0-72.0); Platelet Count* 166 K/uL (140-440); RDW Coefficient of Variation % 14.2 % (11.5-15.5); Red Blood Count 4.59 m/uL (4.30-5.90); White Blood Count* 4.48 K/uL (4.50-11.00)
[2023-04-01 09:12] LABS: Slide Review Reflex No
[2023-04-01 09:19] LABS: Albumin* 3.8 g/dL (3.3-5.0); Chloride* 97 mmol/L (96-114)
[2023-04-01 09:20] LABS: Potassium* 3.8 mmol/L (3.6-5.1); Sodium* 136 mmol/L (135-149)
[2023-04-01 09:22] LABS: Alkaline Phosphatase* 139 U/L (40-150); Anion Gap 9 mEq/L (7-15); Aspartate Amino Transferase* 32 U/L (12-35); Bilirubin Total* 0.6 mg/dL (0.1-1.5); Carbon Dioxide* 30 mmol/L (20-32); Creatinine* 1.3 mg/dL (0.5-1.5); Estimated Glomerular Filt Rate 62 ml/min; Total Protein* 7.2 g/dL (6.0-8.3)
[2023-04-01 09:23] LABS: Alanine Aminotransferase* 27 U/L (4-50); Blood Urea Nitrogen* 31 mg/dL (7-30); Calcium* 8.6 mg/dL (8.4-10.6)
[2023-04-01 09:25] LABS: C Reactive Protein* 1.4 mg/dL (0.5-1.0)
[2023-04-01 09:39] LABS: NT Pro B Type NatriureticPept* 56 pg/mL
[2023-04-01 09:41] LABS: Glucose* 404 mg/dL (60-115)
[2023-04-01] MEDS: AZITHROMYCIN 250 MG TABLET 500 MG PO (09:55)
[2023-04-01] MEDS: AMOXICILLIN/CLAVULANATE 875 mg/125 mg TABLET PO (09:55)
== END 2023-04-01 11:05 | disposition home or self-care (01) ==
PROVIDERS: Emergency Provider Family Medicine
DX: R07.89 Other chest pain (principal); J22 Unspecified acute lower respiratory infection; R73.9 Hyperglycemia, unspecified; R21 Rash and other nonspecific skin eruption
CPT/HCPCS: 36415; 71045; 71046; 80053; 81001; 83880; 84484; 85025; 86140; 87631; 93005; 99284; 99285; A9270

== ENCOUNTER 2023-04-01 11:06 | Outpatient (CLI) | payer MEDICARE, MEDICAID, SELFPAY ==
--- OUTSIDE RECORDS SUMMARY | 2023-04-05 12:28 | XMS_ITS | CCD ---
Author Name Chelo Fonseca PA-C Address [address] [place] [address] Phone Organization [facility] Phone Care Team Providers Care Department Chairperson Name Role Phone Chelo Fonseca PA-C Primary Care Provider Unavaila ble Chelo Fonseca PA-C Chronic Care Management Unavai labcal Summary Purpose DataExchange Insurance Providers Payer name Policy type / Coverage type Covered republican ID Effective Begin Date Effective End Date Medicare [place] Medicare Part B [id number] Unknown Unknown [place] Medicare Part B [id number] Unknown Unknown Family history Sister Brittany Suggs [...] Unknown Retirement 09/03/[address]: 5424243 Non-Smoker / No History of Smoking 09/02/[address]: 760210172 No Alcohol Consum ption 09/02/2020 Allergies, Adverse Reactions, Alerts Substance Reaction Codes Entered Date Inactivated Date Status LISINOPRIL RxNorm: 33082 02/12/2020 No Inactive Da te Active Metformin HCl Unknown 02/12/2020 No Inactive Cristiano e Active Problems Condition Codes Effective Dates Condition St atus Coronary artery disease invo lving [place] coronary artery of [place] heart, angina presence unspecified ICD-10: I25.10 ICD-9: [...] ICD-10: Z13.21 ICD-9: V77.99 02/02/2023 Active Other plan rep (current) dr ug therapy ICD-10: Z79.899 ICD-9: [...] immunization ICD-10: Z23 ICD-9: V03.89 02/10/2022 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 ICD-10: Z79.4 02/10 [...] Fill Instructions rosuvastatin 20 mg tablet RxNorm: 146176 Take 1 Tablet(s) Oral QD 10/12/ 024 Active d/c pravastatin 80mg Ozempic 1 mg/dose (4 mg/3 mL) subcutaneous pen injector RxNorm: 8133924 Inject 1 Milligram(s) Subcutaneous QW once a week 02/20/20 23 023 Inactive pregabalin 150 mg capsule RxNorm: 915823 Take 1 Capsule(s) Oral HS at bed time 02/19/20 23 023 Inactive pregabalin 100 mg capsule RxNorm: 126048 Take 1 Capsule(s) Oral QAM every morning 02/18/20 024 Active FreeStyle Chema 2 Sensor kit RxNorm: use as directed 02/04/20 23 024 Active venlafaxine ER 75 mg capsule,extended release 24 hr RxNorm: 317718 Take 3 Capsule(s) Oral QD 02/04/20 023 Inactive FreeStyle Chema 2 Sensor kit RxNorm: use as directed 02/04/20 23 023 Inactive fluconazole 150 mg tablet RxNorm: 881891 Take 1 Tablet(s) Oral on day 3 and on day 6 02/03/20 23 024 Active chlorthalidone 25 mg tablet RxNorm: 434006 Take 1 Tablet(s) Oral QAM every morning 02/03/20 23 No Stop Date Active venlafaxine ER 150 mg capsule,extended release 24 hr RxNorm: 575387 Take 1 Capsule(s) Oral QD 02/03/20 023 Inactive acetaminophen 500 mg tablet RxNorm: 519222 1 TABLET ORALLY 3 TIMES DAILY (MAX APAP:4GM/24HR) 12/15/19 23 024 Active potassium chloride ER 20 mEq tablet,extended release RxNorm: 230659 Take 1 Tablet(s) Oral BID 12/09/19 23 023 Inactive d/c 20mEq once daily (sent from hospital) clotrimazole 1 % topical cream RxNorm: 818632 apply 1g topically to top of feet and in between toes BID 12/09/19 23 023 Inactive nystatin 100,000 unit/gram topical powder RxNorm: 775316 APPLY TO AFFECTED AREAS TOPICALLY 2 TIMES DAILY 11/21/19 23 024 Active Nystop 100,000 unit/gram topical powder RxNorm: 590209 Apply to abd folds, under breasts and L side of groin Topical BID x 14 days, then BID PRN 11/20/19 23 023 Inactive dx: yeast dermatitis [place] Ultra Strength 4 %-30 %-10 % topical cream RxNorm: 595350 Apply 1 Gram(s) Topical QID PRN to feet and legs for neuropathic pain 11/11/19 23 024 Active hydrocortisone 2.5 % topical cream RxNorm: 219888 Apply 1/2 Gram(s) Topical BID as needed 11/10/19 No Stop Date Active clotrimazole 1 % topical cream RxNorm: 168319 Apply 1/2 Gram(s) Topical BID Apply to affected areas of groin, periarea, and abdominal topically 2 times daily 11/10/19 23 023 Inactive Levemir FlexPen 100 unit/mL (3 mL) solution subcutaneous insulin pen RxNorm: 805504 Inject 30 Unit(s) Subcutaneous BID 10/07/19 23 024 Active Humulin R U-500 (Concentrated) Insulin 500 unit/mL subcutaneous soln RxNorm: 977377 Inject 100 Unit(s) Subcutaneous TID 10/07/19 23 024 Active Ozempic 0.25 mg or 0.5 mg (2 mg/3 mL) subcutaneous pen injector RxNorm: 0116260 Inject 1/2 Milligram(s) Subcutaneous QW once a week 10/07/19 024 Active aripiprazole 15 mg tablet RxNorm: 918200 1/2 TAB (7.5MG) ORALLY DAILY (DX:MAJOR DEPRESSIVE DISORDER) 09/23/19 23 023 Inactive Lancets,Thin 28 gauge RxNorm: Use 1 as directed QID 09/15/19 23 024 Active Accu-Chek Guide test strips RxNorm: Use 1 Test Strip QID 09/15/19 23 023 Inactive ok to substitute with any covered alternative test strip torsemide 20 mg tablet RxNorm: 279333 Take 1 Tablet(s) Oral BID 09/09/19 23 024 Active d/c once daily dosing carvedilol 25 mg tablet RxNorm: 685313 Take 1 Tablet(s) Oral QD 08/25/19 23 024 Active pregabalin 150 mg capsule RxNorm: 781129 1 Capsule(s) Oral HS at bed time 08/18/19 23 023 Inactive pregabalin 100 mg capsule RxNorm: 325567 1 Capsule(s) Oral QAM every morning 08/18/19 23 023 Inactive carvedilol 25 mg tablet RxNorm: 764715 1 Tablet(s) Oral QD 07/28/19 23 023 Inactive lisinopril 20 mg tablet RxNorm: 117518 Give 1 Tablet(s) Oral QD 07/28/19 23 023 Inactive Lyrica 150 mg capsule RxNorm: 514853 Take 1 Capsule(s) Oral QHS every night at bedtime 07/19/19 23 023 Inactive d/c 100mg dose Diflucan 150 mg tablet RxNorm: 926260 Take 1 Tablet(s) Oral QD repeat on day 3 and 6 07/19/19 23 023 Inactive pregabalin 100 mg capsule RxNorm: 858602 Take 1 Capsule(s) Oral QAM every morning 07/19/19 23 023 Inactive gatifloxacin 0.5 % eye drops RxNorm: 942462 Instill 1 Drop(s) as directed TID Instill 1 drop in to affected eye(s) starting 1 day prior to surgery and continue until gone (do not exceed 4 weeks). 07/13/19 23 023 Inactive carvedilol 25 mg tablet RxNorm: 155364 2 Tablet(s) Oral BID 07/13/19 23 023 Inactive Humulin R Regular U-100 Insulin 100 unit/mL injection solution RxNorm: 065630 85 Unit(s) Injection TID 07/13/19 23 023 Inactive ketorolac 0.5 % eye drops RxNorm: 777385 Instill 1 Drop(s) as directed QID Instill 1 drop into affected eye(s) 4 times daily starting 1 day prior to surgery and continue until gone (do not exceed 4 weeks). 07/13/19 23 023 Inactive Diflucan 150 mg tablet RxNorm: 328225 Take 1 Tablet(s) Oral QD repeat on day 3 and 6 06/30/19 23 023 Inactive Accu-Chek Guide test strips RxNorm: Use 1 Test Strip QID Use 1 test strip to monitor blood glucose 4 times daily and as needed. Dx:E11.42. 06/23/19 023 Inactive ok to substitute with any covered alternative test strip dextromethorphan-gu aifenesin 10 mg-100 mg/5 mL oral liquid RxNorm: 941920 Take 10 Milliliter(s) Oral every 4 hours as needed for cough 06/19/19 023 Inactive dextromethorphan-gu aifenesin 10 mg-100 mg/5 mL oral liquid RxNorm: 391161 Take 10 Milliliter(s) Oral every 4 hours as needed for cough 06/19/19 023 Inactive Lyrica 150 mg capsule RxNorm: 860246 Take 1 Capsule(s) Oral QHS every night at bedtime 06/18/19 023 Inactive d/c 100mg dose aripiprazole 15 mg tablet RxNorm: 976449 1/2 TAB (7.5MG) ORALLY DAILY (DX:MAJOR DEPRESSIVE DISORDER) 06/05/19 23 023 Inactive pregabalin 100 mg capsule RxNorm: 347599 1 Capsule(s) Oral QAM every morning 06/02/19 23 023 Inactive Banophen 50 mg capsule RxNorm: 2353601 Take 1 Capsule(s) Oral Q6H every 6 hours as needed 05/19/19 23 No Stop Date Active Novolog Flexpen U-100 Insulin aspart 100 unit/mL (3 mL) subcutaneous RxNorm: 1790309 Inject 10 Unit(s) Subcutaneous QHS every night at bedtime with nighttime snack 04/08/20 22 022 Inactive Novolog Flexpen U-100 Insulin aspart 100 unit/mL (3 mL) subcutaneous RxNorm: 5198919 Inject 42 Unit(s) Subcutaneous TID in addition to sliding scale 04/08/20 022 Inactive d/c 36u albuterol sulfate HFA 90 mcg/actuation aerosol inhaler RxNorm: 4820216 Take 2 Puff(s) Inhalation Q4H every four hours as needed as needed for SOB, cough, or wheezing 04/07/20 030 Active Banophen 50 mg capsule RxNorm: 3731668 Take 1 Capsule(s) Oral Q6H every 6 hours as needed 04/06/20 023 Inactive diphenhydramine 50 mg tablet RxNorm: 0554269 Take 1 Tablet(s) Oral Q6H every 6 hours as needed 04/06/20 022 Inactive diphenhydramine 50 mg tablet RxNorm: 8226937 1 Tablet(s) Oral Q6H every 6 hours as needed 04/06/20 022 Inactive Abilify 15 mg tablet RxNorm: 145109 1/2 Tablet(s) Oral QD 03/10/20 023 Inactive Shingrix (PF) 50 mcg/0.5 mL intramuscular suspension, kit RxNorm: 0226421 Administer 1/2 Milliliter(s) Intramuscular QD one time shingrix step 2 ( step 1 given 11/04/21) WITH needle - Nursing please administer upon arrival and once administered post a bridge message with date of administration, treasury representative, expiration date, and lot# so we can update [facility] 02/18/20 22 022 Inactive dispense with needle Shingrix (PF) 50 mcg/0.5 mL intramuscular suspension, kit RxNorm: 7047731 Administer 1/2 Milliliter(s) Intramuscular QD one time shingrix step 2 ( step 1 given 11/04/21) WITH needle - Nursing please administer upon arrival and once administered post a bridge message with date of administration, treasury representative, expiration date, and lot# so we can update [facility] 02/18/20 22 022 Inactive dispense with needle polyethylene glycol 3350 17 gram/dose oral powder RxNorm: 361673 Take 17=1 capful Gram(s) Oral QD mix with 4-8oz of liquid 01/08/20 22 023 Inactive take this in addition to BID prn order Lyrica 100 mg capsule RxNorm: 541983 Take 1 Capsule(s) Oral QAM every morning 01/08/20 22 022 Inactive d/c 50mg dose acetaminophen 500 mg tablet RxNorm: 697482 Take 1 Tablet(s) Oral TID 01/08/20 22 022 Inactive d/c PRN order Lyrica 150 mg capsule RxNorm: 990421 Take 1 Capsule(s) Oral QHS every night at bedtime 01/08/20 22 023 Inactive d/c 100mg dose Abilify 5 mg tablet RxNorm: 076479 Take 1 Tablet(s) Oral QD take 1 tab po QD #30 refill 5 dx: MDD 12/12/19 22 022 Inactive Abilify 5 mg tablet RxNorm: 205212 Take 1 Tablet(s) Oral QD take 1 tab po QD #30 refill 5 dx: MDD 12/12/19 22 022 Inactive Novolog Flexpen U-100 Insulin aspart 100 unit/mL (3 mL) subcutaneous RxNorm: 2433344 Inject 42 Unit(s) Subcutaneous TID in addition to sliding scale 12/10/19 22 Inactive d/c 36u chlorthalidone 25 mg tablet RxNorm: 767952 Take 1 Tablet(s) Oral QAM every morning 12/10/19 22 023 Inactive pregabalin 50 mg capsule RxNorm: 079776 Take 1 Capsule(s) Oral QAM every morning 11/12/19 22 022 Inactive tetanus-diphtheria toxoids-Td 2 Lf unit-2 Lf unit/0.5 mL IM suspension RxNorm: 139 Take 0.5 Miscellaneous Intramuscular 11/12/19 22 022 Inactive need tdap - nursing to administer upon arrival pregabalin 50 mg capsule RxNorm: 012394 Take 1 Capsule(s) Oral QAM every morning 10/16/19 22 022 Inactive pregabalin 50 mg capsule RxNorm: 964509 Take 1 Capsule(s) Oral QAM every morning 10/16/19 22 022 Inactive pregabalin 50 mg capsule RxNorm: 568169 1 Capsule(s) Oral QAM every morning 10/15/19 22 Inactive Shingrix (PF) 50 mcg/0.5 mL intramuscular suspension, kit RxNorm: 9335758 Administer 1/2 Milliliter(s) Intramuscular one time Nursing please administer upon arrival and once administered post a bridge message with date of administration, treasury representative, expiration date, and lot# so we can update [facility]IC. 10/09/19 22 022 Inactive shingrix step 1 Shingrix (PF) 50 mcg/0.5 mL intramuscular suspension, kit RxNorm: 3534994 Administer 1/2 Milliliter(s) Intramuscular one time Nursing please administer upon arrival and once administered post a bridge message with date of administration, treasury representative, expiration date, and lot# so we can update [facility]IC. 10/09/19 22 022 Inactive shingrix step 1 cholecalciferol (vitamin D3) 1,250 mcg (50,000 unit) capsule RxNorm: 178776 Take 1 Capsule(s) Oral QW once a [...] aspart 100 unit/mL (3 mL) subcutaneous RxNorm: 8458368 Inject 10 Unit(s) Subcutaneous QHS every night at bedtime with nighttime snack 10/08/19 22 Inactive Shingrix (PF) 50 mcg/0.5 mL intramuscular suspension, kit RxNorm: 6487628 ADMINISTER 2-DOSE SERIES PER CDC GUIDELINES 10/08/19 22 Active Shingrix (PF) 50 mcg/0.5 mL intramuscular suspension, kit RxNorm: 3308283 ADMINISTER 2-DOSE SERIES PER CDC GUIDELINES 10/08/19 Inactive Novolog Flexpen U-100 Insulin aspart 100 unit/mL (3 mL) subcutaneous RxNorm: 6603873 Inject 36 Unit(s) Subcutaneous TID in addition to sliding scale 10/08/19 Inactive Novofine Autocover 30 gauge x 1/3 needle RxNorm: Use 1 Miscellaneous UD as directed Use 1 needle as directed to administer insulin 5 times a day Dx:E11.42. 10/03/19 Inactive ok to substitute with any covered alternative pen needle benzoyl peroxide 10 % topical cleanser RxNorm: 238118 Apply 1 Application Topical QD apply to face, wash rinse and dry once daily (may change to QOD if drying) 08/19/19 022 Inactive (%covered by insurance) #60ml refill 11 dx: acne benzoyl peroxide 10 % topical cleanser RxNorm: 638127 Apply 1 Application Topical QD apply to face, wash rinse and dry once daily (may change to QOD if drying) 08/19/19 022 Inactive (%covered by insurance) #60ml refill 11 dx: acne benzoyl peroxide 10 % topical cleanser RxNorm: 534481 Apply 1 Application Topical QD apply to face, wash rinse and dry once daily (may change to QOD if drying) 08/19/19 Inactive (%covered by insurance) #60ml refill 11 dx: acne Lyrica 50 mg capsule RxNorm: 162843 Take 1 Capsule(s) Oral QAM every morning Take 1 capsule by mouth once daily 08/19/19 22 022 Inactive benzoyl peroxide 10 % topical cleanser RxNorm: 534597 Apply 1 Application Topical QD apply to face, wash rinse and dry once daily (may change to QOD if drying) 08/19/19 022 Inactive (%covered by insurance) #60ml refill 11 dx: acne Lyrica 100 mg capsule RxNorm: 881487 Take 1 Capsule(s) Oral QHS every night at bedtime Take 1 capsule by mouth once daily at bedtime 08/19/19 22 Inactive Lyrica 100 mg capsule RxNorm: 344352 Take 1 Capsule(s) Oral QHS every night at bedtime Take 1 capsule by mouth once daily at bedtime 08/16/19 22 022 Inactive Lyrica 50 mg capsule RxNorm: 845121 Take 1 Capsule(s) Oral QAM every morning Take 1 capsule by mouth once daily 08/16/19 22 022 Inactive Levemir FlexTouch U-100 Insulin 100 unit/mL (3 mL) subcutaneous pen RxNorm: 491582 Inject 86 Unit(s) Subcutaneous BID 08/05/19 22 022 Inactive d/c 83units BID Lyrica 100 mg capsule RxNorm: 626676 Take 1 Capsule(s) Oral QHS every night at bedtime Take 1 capsule by mouth once daily at bedtime 07/14/19 22 022 Inactive Lyrica 50 mg capsule RxNorm: 527717 Take 1 Capsule(s) Oral QAM every morning Take 1 capsule by mouth once daily 07/14/19 22 022 Inactive Levemir FlexTouch U-100 Insulin 100 unit/mL (3 mL) subcutaneous pen RxNorm: 438144 Inject 83 Unit(s) Subcutaneous BID 07/08/19 22 [...] 30 mg tablet,extended release 24 hr RxNorm: 444098 Take 1 Tablet(s) Oral QD 05/05/20 No Stop Date Active hydralazine 50 mg tablet RxNorm: 010854 Take 1 Tablet(s) Oral QID 05/05/20 21 Inactive venlafaxine ER 225 mg tablet,extended release 24 hr RxNorm: 566060 Take 1 Tablet(s) Oral QD 05/05/20 21 Inactive venlafaxine ER 225 mg tablet,extended release 24 hr RxNorm: 102582 Take 1 Tablet(s) Oral QD 05/05/20 21 022 Inactive hydralazine 50 mg tablet RxNorm: 891057 Take 1 Tablet(s) Oral QID 05/05/20 21 021 Inactive aspirin 81 mg tablet,delayed release RxNorm: 675457 Take 1 Tablet(s) Oral QD 03/31/20 21 022 Inactive Zetia 10 mg tablet RxNorm: 263839 Take 1 Tablet(s) Oral QD 03/31/20 21 Inactive Vitamin D2 1,250 mcg (50,000 unit) capsule RxNorm: 4025016 Take 1 Capsule(s) Oral QW once a week x 12 weeks 03/31/20 21 022 Inactive Vitamin D2 1,250 mcg (50,000 unit) capsule RxNorm: 5293790 Take 1 Capsule(s) Oral QW once a week 03/31/20 021 Inactive Zetia 10 mg tablet RxNorm: 806104 Take 1 Tablet(s) Oral QD 03/31/20 Inactive hydralazine 25 mg tablet RxNorm: 298790 Take 1 Tablet(s) Oral QID 03/31/20 021 Inactive hydralazine 25 mg tablet RxNorm: 636657 Take 1 Tablet(s) Oral QID 03/31/20 021 Inactive hydralazine 10 mg tablet RxNorm: 033835 Take 1 Tablet(s) Oral QID 03/03/20 021 Inactive cephalexin 500 mg tablet RxNorm: 107299 Take 1 Tablet(s) Oral QID 02/27/20 021 Inactive cephalexin 500 mg tablet RxNorm: 477771 Take 1 Tablet(s) Oral QID 02/27/20 021 Inactive lisinopril 40 mg tablet RxNorm: 158166 Take 1 Tablet(s) Oral QD 02/11/20 023 Inactive Eliquis 5 mg tablet RxNorm: 2089949 Take 1 Tablet(s) Oral BID 01/05/20 022 Inactive Eliquis 5 mg tablet RxNorm: 5825881 Take 2 Tablet(s) Oral QD 01/01/20 021 Inactive Lyrica 50 mg capsule RxNorm: 184127 Take 1 Capsule(s) Oral QAM every morning 12/24/19 021 Inactive Lyrica 100 mg capsule RxNorm: 612211 Take 1 Capsule(s) Oral QHS every night at bedtime 12/24/19 021 Inactive clotrimazole 1 % topical cream RxNorm: 963553 Apply to right foot and toes Topical BID 12/04/19 21 023 Inactive metoprolol succinate ER 200 mg tablet,extended release 24 hr RxNorm: 614162 Take 1 Tablet(s) Oral QD 12/04/19 21 023 Inactive ciprofloxacin 500 mg tablet RxNorm: 385712 Take 1 Tablet(s) Oral QD 11/30/19 21 021 Inactive DX ofloxacin otic drops Accu-Chek Guide test strips RxNorm: USE 1 TO CHECK GLUCOSE 4 TIMES DAILY AND NEEDED 11/15/19 21 023 Inactive Blood Glucose Test strips RxNorm: Use 1 Test Strip QID at PRN 11/05/19 21 023 Inactive E11.42 lisinopril 30 mg tablet RxNorm: 786531 Take 1 Tablet(s) Oral QD 10/30/19 021 Inactive lisinopril 20 mg tablet RxNorm: 290836 Take 1 Tablet(s) Oral QD 10/23/19 21 021 Inactive lisinopril 20 mg tablet RxNorm: 117558 Take 1 Tablet(s) Oral QD 10/23/19 21 021 Inactive lisinopril 10 mg tablet RxNorm: 769007 Take 1 Tablet(s) Oral QD 10/02/19 021 Inactive icosapent ethyl 1 gram capsule RxNorm: 9596543 Take 2 Capsule(s) (2 gm) Oral BID with meals 09/12/19 022 Inactive Okay to dispense one 2gm tab if you have that available. icosapent ethyl 1 gram capsule RxNorm: 5943642 Take 2 Capsule(s) Oral BID 09/12/19 21 021 Inactive Okay to dispense one 2gm tab if you have that available. amlodipine 10 mg tablet RxNorm: 762081 Take 1 Tablet(s) Oral QD 09/04/19 022 Inactive aspirin 81 mg tablet,delayed release RxNorm: 750205 Take 1 Tablet(s) Oral QD 09/04/19 021 Inactive Levemir FlexTouch U-100 Insulin 100 unit/mL (3 mL) subcutaneous pen RxNorm: 518451 Inject 150 Unit(s) Subcutaneous BID 09/04/19 21 022 Inactive venlafaxine ER 150 mg tablet,extended release 24 hr RxNorm: 675703 Take 1 Tablet(s) Oral QD 09/04/19 21 021 Inactive clotrimazole-betame thasone 1 %-0.05 % topical cream RxNorm: 803026 Apply to rash on red area on left abdomen/chest Topical BID 08/10/19 21 Inactive amlodipine 5 mg tablet RxNorm: 078882 Take 1 Tablet(s) Oral QD 07/31/19 Inactive cephalexin 500 mg tablet RxNorm: 931919 Take 1 Tablet(s) Oral BID BID - Twice Daily 07/31/19 Inactive Start 08/01/20 pantoprazole 40 mg tablet,delayed release RxNorm: 072230 Take 1 Tablet(s) Oral QAM every morning 07/08/19 022 Inactive senna 8.6 mg tablet RxNorm: 334013 Take 1 Tablet(s) Oral QD 07/08/19 Inactive pravastatin 80 mg tablet RxNorm: 387392 Take 1 Tablet(s) Oral QHS every night at bedtime 07/08/19 023 Inactive carbamazepine 200 mg tablet RxNorm: 097439 Take 1 Tablet(s) Oral BID 07/08/19 022 Inactive clopidogrel 75 mg tablet RxNorm: 184793 Take 1 Tablet(s) Oral QD 07/08/19 Inactive Blood Glucose Test strips RxNorm: Use 1 Test Strip QID at PRN 07/08/19 Inactive E11.42 Novolog Flexpen U-100 Insulin aspart 100 unit/mL (3 mL) subcutaneous RxNorm: 6580927 Administer per sliding scale Milliliter(s) Subcutaneous TID 151-200: 10 u; 201-250: 20 u; 251-300: 30 u; 301-350: 40 u; 351-400: 50 u. 07/08/19 022 Inactive lisinopril 5 mg tablet RxNorm: 204612 Take 1 Tablet(s) Oral QD 07/08/19 021 Inactive Novolog Flexpen U-100 Insulin aspart 100 unit/mL (3 mL) subcutaneous RxNorm: 7840059 Inject 85 Unit(s) Subcutaneous TID 07/08/19 022 Inactive clotrimazole 1 % topical cream RxNorm: 716820 Apply to bilateral groin areas Topical BID 07/08/19 022 Inactive metoprolol succinate ER 200 mg tablet,extended release 24 hr RxNorm: 807384 Take 1 Tablet(s) Oral QD 07/08/19 021 Inactive Vitamin D3 25 mcg (1,000 unit) tablet RxNorm: 824855 Take 1 Tablet(s) Oral QD 07/08/19 021 Inactive isosorbide dinitrate 30 mg tablet RxNorm: 544483 Take 1 Tablet(s) Oral QD 07/08/19 021 Inactive Levemir FlexTouch U-100 Insulin 100 unit/mL (3 mL) subcutaneous pen RxNorm: 257581 Inject 140 Unit(s) Subcutaneous BID 07/08/19 021 Inactive torsemide 20 mg tablet RxNorm: 847319 Take 1 Tablet(s) Oral QD 07/08/19 023 Inactive venlafaxine 75 mg tablet RxNorm: 439876 Take 1 Tablet(s) Oral QD 07/08/19 021 Inactive acetaminophen 500 mg tablet RxNorm: 681583 Take 1 Tablet(s) Oral TID as needed for headache 06/18/19 021 Inactive acetaminophen 500 mg tablet RxNorm: 825705 Take 1 Tablet(s) Oral TID as needed for headache 06/18/19 021 Inactive Lyrica 100 mg capsule RxNorm: 141019 Take 1 Capsule(s) Oral QHS every night at bedtime 06/11/19 021 Inactive Lyrica 50 mg capsule RxNorm: 772181 Take 1 Capsule(s) Oral QAM every morning 06/10/19 21 021 Inactive hydrocortisone 2.5 % topical cream RxNorm: 883010 Apply to bilateral groin creases Topical BID 05/15/20 20 021 Inactive clotrimazole 1 % topical cream RxNorm: 015692 Apply to bilateral groin areas Topical BID 05/15/20 20 021 Inactive Lyrica 50 mg capsule RxNorm: 692973 Take 1 Capsule(s) Oral QAM every morning 05/14/20 20 Inactive Lyrica 100 mg capsule RxNorm: 614718 Take 1 Capsule(s) Oral QHS every night [...] Inactive Nystop 100,000 unit/gram topical powder RxNorm: 649653 Apply to abd folds, under breasts and L side of groin Topical BID x 14 days, then BID PRN 04/08/20 20 Inactive dx: yeast dermatitis Lyrica 100 mg capsule RxNorm: 454554 Take 1 Capsule(s) Oral QHS every night at bedtime 03/13/20 20 Inactive Lyrica 50 mg capsule RxNorm: 255434 Take 1 Capsule(s) Oral QAM every morning 03/13/20 20 Inactive ketoconazole 2 % shampoo RxNorm: 227024 Apply Topical two times a week with showers 03/11/20 20 Inactive cholecalciferol (vitamin D3) 50 mcg (2,000 unit) tablet RxNorm: 662800 Take 1 Tablet(s) Oral QD 03/11/20 20 Inactive Zetia 10 mg tablet RxNorm: 706549 Take 1 Tablet(s) Oral QD 03/07/20 20 Inactive Zetia 10 mg tablet RxNorm: 234874 Take 1 Tablet(s) Oral QD 03/07/20 20 Inactive Lyrica 50 mg capsule RxNorm: 285984 Take 1 Capsule(s) Oral QAM every morning 02/15/20 20 Inactive Lyrica 100 mg capsule RxNorm: 265447 Take 1 Capsule(s) Oral QHS every night at bedtime 02/15/20 20 Inactive Lyrica 100 mg capsule RxNorm: 745341 Take 1 Capsule(s) Oral QHS every night at bedtime 02/15/20 20 Inactive Lyrica 50 mg capsule RxNorm: 892801 Take 1 Capsule(s) Oral QAM every morning 02/15/20 20 Inactive polyethylene glycol 3350 17 gram/dose oral powder RxNorm: 640700 Take 17=1 capful Gram(s) Oral BID as needed mix with 4-8oz of liquid 06/12/19 22 Active metoprolol succinate ER 200 mg tablet,extended release 24 hr RxNorm: 134850 Take 1 Tablet(s) Oral QD 08/12/19 23 Active loperamide 2 mg capsule RxNorm: 552649 Take 1 Capsule(s) Oral QID as needed 06/12/19 22 Active hydralazine 50 mg tablet RxNorm: 999184 Take 1 Tablet(s) Oral QID 08/12/19 23 Active venlafaxine ER 75 mg capsule,extended release 24 hr RxNorm: 148798 Take 3 Capsule(s) Oral QD 06/12/19 22 023 Inactive icosapent ethyl 1 gram capsule RxNorm: 5846504 Take 2 Capsule(s) (2 gm) Oral BID with meals 10/07/19 23 023 Inactive Okay to dispense one 2gm tab if you have that available. Levemir FlexTouch U-100 Insulin 100 unit/mL (3 mL) subcutaneous pen RxNorm: 632200 Inject 80 Unit(s) Subcutaneous BID 07/14/19 23 023 Inactive Novolog Flexpen U-100 Insulin aspart 100 unit/mL (3 mL) subcutaneous RxNorm: 0196351 Insert 30 Unit(s) Subcutaneous TID with meals 10/08/19 22 022 Inactive Medication Administered No Medication Administered data Vital Signs Date Vital 02/24/2023 Height: 5'5 Code: 8302-2 Weight : Code: 3141-9 Reason For Visit No Reason For Visit data Encounters Encounter Performer Location Location Address Codes Date ([address]) Home or Residence Visit Est Pt - [place], 60 mins Diagnosis: Coronary artery disease involving [place] coronary artery of [place] heart, angina presence unspecified[ICD10: I25.10] Diagnosis: Hyperlipidemia associated with type 2 diabetes mellitus[ICD10: E11.69] Diagnosis: Stage 2 chronic 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[ICD10: E11.22] Diagnosis: Type 2 diabetes mellitus with diabetic polyneuropathy, with long-term current use of insulin[ICD10: E11.42] Chelo Fonseca [facility] [place] [facility] [address] [address] [address] [id number] CPT-4: 25340 02/24/2023 Plan of Care Planned Activity Notes Codes Status Date Patient Education: Patient Medication Summary Completed 02/24/2023 Patient Education: Influenza Vaccine Completed 02/24/2023 Appointment: Sandra Clark WPtel: [address] [place], [place] [phone] Telehealth Psych Follow Up 12/09 Appointment: Tapan Shirley WPtel: [address] [place], [place] [phone] [facility] 10/26/2022 Referral: [facility] [address] [facility] [address] [id number] Referral Records Received 09/21/2022 Appointment: Tapan Shirley WPtel: [phone] [place] F/U 08/11/2022 Appointment: Tapan Shirley WPtel: [phone] [place] F/U 07/14/2022 Appointment: Tapan Shirley WPtel: [address] [address] [id number] F/U 02/10/2022 Referral: [facility] WPtel: [address] [id number] [place] Referral Completed 05/28/2021 Referral: General Cardiology [...] attention.??Sister Jyotsna involved in his care cell# [phone]??Guardian: Giulia (tapan met in person 09/01/21), now has Lexii (same group as giulia)Lab Schedule: /September* 02/08/2023 Ischemic Heart Disease Has daily chest pain, appears to be unchanging from baseline intermittent pain that he has had for the past 2-3 years since heart attack. He needs to make an appointment with [facility].?? Staff aware and will help schedule apt. [...] His lipase on 02/22 was normal at 23.?? He makes poor [...] 10mg QD Recheck FLP in 6 weeks?? . 02/24/2023
--- OUTSIDE RECORDS SUMMARY | 2023-04-05 12:28 | XMS_ITS | CCD ---
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 [id number] Referral Records Received 09/21/2022 Appointment: Rosalina Shirley WPtel: [address] [facility] [address] [id number] [place] F/U 08/11/2022 Appointment: Rosalina Shirley WPtel: [address] [facility] 300 [id number] [place] F/U 07/14/2022 Appointment: Rosalina Shirley WPtel: [address] [facility] 300 [id number] F/U 02/10/2022 Referral: [facility] WPtel: [address] [id number] [place] Referral Completed 05/28/2021 Referral: General Cardiology [...] [facility] to have closer nursing attention.??Sister Jyotsna involved in his care cell# [phone]??Guardian: Don (rosalina met in person 09/01/21), now has Lexii (same group as don)Lab Schedule: * 02/08/2023
== END 2023-04-01 11:07 | disposition home or self-care (01) ==
LOC: AMB 04-05 12:02
PROVIDERS: Visit Provider Internal Medicine
DX: J18.9 Pneumonia, unspecified organism (principal); R53.1 Weakness
CPT/HCPCS: A0425; A0428

== ENCOUNTER 2023-04-06 22:01 | Outpatient (CLI) | payer MEDICARE, MEDICAID, SELFPAY | END 2023-04-06 22:02 | disposition home or self-care (01) | LOC: AMB 04-07 10:07 | PROVIDERS: Visit Provider Emergency Medicine Emergency Medical Services | DX: R06.09 Other forms of dyspnea (principal) | CPT/HCPCS: A0425; A0427 ==

== ENCOUNTER 2023-04-06 22:35 | Emergency (ER) | payer MEDICARE, MEDICAID, SELFPAY ==
[2023-04-06 22:42] VITALS: BP 152/71; PULSE 92; RESP 20; TEMP 36.6; O2SAT 96; BMI 66.6
[2023-04-06 22:48] VITALS: O2SAT 96
--- NOTE | 2023-04-06 22:53 | CRLHL7_ITS ---
For Patients: As a result of the Cures Act, medical imaging exams and procedure reports are released immediately into your electronic medical record. You may view this report before your referring provider. If you have questions, please contact your health care provider. INDICATION: Shortness of breath. TECHNIQUE: Chest 1 views. COMPARISON: April 01, 2023. FINDINGS: Cardiovascular and mediastinum: Stable heart size and vasculature. Lungs and pleural spaces: Low lung volumes. No sign of infiltrate or mass. No sign of pleural effusion. No pneumothorax. Bones and soft tissues: No significant findings. IMPRESSION: Low lung volumes. No acute findings and no significant changes from the prior exam. Dictated by Mack Zuniga MD @ 04/06/2023 11:12:08 PM (Electronically Signed)
--- NOTE | 2023-04-06 22:54 | ED_ITS ---
HPI - SOB/Dyspnea General Chief Complaint: Shortness of Breath/Dyspnea Stated Complaint: Shortness of breath Time Seen by Provider: 04/06/23 22:45 History of Present Illness HPI Narrative: This 62-year-old male comes in from his skilled nursing facility by ambulance stating that he gets short of breath. He was seen about 5 days ago here and chest x-ray at that time did show some suspicion of infiltrate in his lungs so he has been taking Augmentin and Zithromax. He arrives here with normal vital signs and oximetry at 96-97% on room air. He does not appear to be in any distress. He states that he typically lays on his side at night and when doing so he gets uncomfortable him feel short of breath after 20 minutes or so. He has had trouble sleeping except for 1 night when the nurse gave him a Benadryl tablet. He states that he slept oral well then. I had him turn to his side while I was evaluating him. I asked him to lay on his side like he typically would when he is going to sleep at night. He did not show any change in his vital signs and in particular his oximetry and work of breathing was unchanged. Related Data Home Medications Medication Instructions Recorded Confirmed amlodipine 10 mg tablet 10 mg PO DAILY 03/07/22 07/24/22 apixaban 5 mg tablet (Eliquis) 5 mg PO BID 03/07/22 07/24/22 aripiprazole 15 mg tablet 7.5 mg PO DAILY 03/07/22 07/24/22 aspirin 81 mg tablet,delayed 81 mg PO DAILY 03/07/22 07/24/22 release carbamazepine 200 mg tablet 200 mg PO BID 03/07/22 07/24/22 chlorthalidone 25 mg tablet 25 mg PO DAILY 03/07/22 07/24/22 ezetimibe 10 mg tablet 10 mg PO DAILY 03/07/22 07/24/22 hydralazine 50 mg tablet 50 mg PO QID 03/07/22 07/24/22 isosorbide mononitrate 30 mg 30 mg PO DAILY 03/07/22 07/24/22 tablet,extended release 24 hr pantoprazole 40 mg tablet,delayed 40 mg PO DAILY 03/07/22 07/24/22 release polyethylene glycol 3350 17 17 g PO DAILY 03/07/22 07/25/22 gram/dose oral powder pravastatin 80 mg tablet 80 mg PO HS 03/07/22 07/24/22 pregabalin 100 mg capsule 100 mg PO QAM 03/07/22 07/24/22 pregabalin 150 mg capsule 150 mg PO HS 03/07/22 07/24/22 torsemide 20 mg tablet 20 mg PO DAILY 03/07/22 07/24/22 venlafaxine 75 mg capsule,extended 225 mg PO DAILY 03/07/22 07/24/22 release 24 hr acetaminophen 500 mg tablet 500 mg PO Q6H 06/13/22 07/24/22 albuterol sulfate 90 mcg/actuation 1 inh inhalation Q4H PRN 06/13/22 07/24/22 aerosol inhaler bronchospasm diphenhydramine HCl 50 mg capsule 50 mg PO Q6H PRN itching 06/13/22 07/24/22 (Banophen) icosapent ethyl 1 gram capsule 2 g PO BID 06/13/22 07/24/22 (Vascepa) insulin regular hum U-500 conc 500 85 unit subcut TID 06/13/22 07/24/22 unit/mL(3 mL) subcut pen (Humulin R U-500 (Conc) Insulin Kwikpen) ketoconazole 2 % shampoo 1 applic topical Q3D 06/13/22 07/24/22 loperamide 2 mg capsule 2 mg PO Q6H PRN loose stool 06/13/22 07/24/22 nystatin 100,000 unit/gram topical 1 applic topical BID PRN 06/13/22 07/24/22 powder sennosides 8.6 mg tablet (senna) 8.6 mg PO DAILY 06/13/22 07/24/22 clotrimazole 1 % topical cream 1 applic topical BID 07/25/22 07/25/22 ergocalciferol (vitamin D2) 1,250 50,000 unit PO WE@07/25/22 07/25/22 mcg (50,000 unit) capsule fluconazole 150 mg tablet 150 mg PO TUFR@07/25/22 07/25/22 gatifloxacin 0.5 % eye drops 1 drp ophthalmic (eye) QID 07/25/22 07/25/22 ketorolac 0.5 % eye drops 1 drp ophthalmic (eye) QID 07/25/22 07/25/22 prednisolone acetate 1 % eye 1 drp ophthalmic (eye) QID 07/25/22 07/25/22 drops,suspension Previous Rx's Medication Instructions Recorded amoxicillin 875 mg-potassium 1 tab PO BID 7 days #14 tabs 07/26/22 clavulanate 125 mg tablet carvedilol 25 mg tablet 25 mg PO Q12H 30 days #60 tabs 07/26/22 lisinopril 20 mg tablet 20 mg PO DAILY 30 days #60 tabs 07/26/22 cephalexin 500 mg capsule 500 mg PO TID 10 days #30 caps 09/14/22 hydrocortisone 2.5 % topical cream 1 applic topical BID PRN #30 grams 09/14/22 nystatin 100,000 unit/gram topical 1 applic topical BID #30 grams 09/14/22 powder potassium chloride 20 mEq oral 20 meq PO DAILY 3 days #3 ea 10/19/22 packet potassium chloride 20 mEq 20 meq PO DAILY #10 tabs 12/08/22 tablet,extended release ammonium lactate 12 % lotion 1 applic topical BID #225 grams 04/01/23 amoxicillin 875 mg-potassium 1 tab PO BID #13 tabs 04/01/23 clavulanate 125 mg tablet azithromycin 250 mg tablet 250 mg PO DAILY 4 days #4 tabs 04/01/23 (Zithromax) Allergies Allergy/AdvReac Type Severity Reaction Status Date / Time lisinopril Allergy Mild Cough Verified 04/06/23 22:44 metformin AdvReac Verified 04/06/23 22:44 Review of Systems Status of ROS: Reports: 10 or more systems reviewed and unremarkable except as noted in History and below Narrative: Constitutional: No fevers, no weight gain or loss. Eyes: No discharge. No vision changes. HENT: No congestion, no sore throat, no ear pain. Cardiovascular: No chest pain, no palpitations. Respiratory: No wheezes, no cough. He reports shortness of breath as described above. Gastrointestinal: No abdominal pain, no vomiting, no diarrhea. Genitourinary: No dysuria, no hematuria. Musculoskeletal: Normal range of motion. Skin: No rashes, no pruritis. Neurological: No dizziness, weakness, sensory change, speech change. Endo/Heme/Allergies: No bruising or bleeding. No polydipsia. Pysch: no suicidality, no anxiety, no insomnia. All other systems reviewed and are negative. PFSH PFS Medical History Insulin dependent diabetes mellitus Recurrent deep vein thrombosis (DVT) ?I82.409 - Acute embolism and thrombosis of unspecified deep veins of unspecified lower extremity (ICD-10) Hypertension ?I10 - Essential (primary) hypertension (ICD-10) Coronary artery disease ?I25.10 - Atherosclerotic heart disease of [place] coronary artery without angina pectoris (ICD-10) Hypertriglyceridemia ?E78.1 - Pure hyperglyceridemia (ICD-10) Epilepsy ?G40.909 - Epilepsy, unspecified, not intractable, without status epilepticus (ICD-10) TASHI on CPAP ?G47.33 - Obstructive sleep apnea (adult) (pediatric) (ICD-10) ?Z99.89 - Dependence on other enabling machines and devices (ICD-10) Tachypnea ?R06.82 - Tachypnea, not elsewhere classified (ICD-10) Fever ?R50.9 - Fever, unspecified (ICD-10) CKD (chronic kidney disease) ?N18.9 - Chronic kidney disease, unspecified (ICD-10) Gout ?M10.9 - Gout, unspecified (ICD-10) Major depressive disorder ?F32.9 - Major depressive disorder, single episode, unspecified (ICD-10) Type 2 diabetes mellitus ?E11.9 - Type 2 diabetes mellitus without complications (ICD-10) Obesity ?E66.9 - Obesity, unspecified (ICD-10) Surgical History History of cholecystectomy ?Z90.49 - Acquired absence of other specified parts of digestive tract (ICD- 10) Social History Narrative: Lives in a shelter in [place], [place]. Sisters Brittany Suggs ([phone]) and Blanka Mcduffie ([phone]) listed as contacts and medical decision makers. Paperwork from shelter indicates Full Code status. Highest level of school completed/degree received: 12th grade, no diploma Smoking Status: Never smoker Do you use any of these nicotine containing products: None Second hand tobacco smoke exposure: No How often do you have a drink containing alcohol: never How often do you have six or more drinks on one occasion: Never AUDIT-C Alcohol total score: 0 Non-prescribed substance use: denies use Caffeine: No service: No Exam Narrative: Exam Narrative: Constitutional: Well-developed, well-nourished, no acute distress. Morbidly obese. HEENT: Normocephalic, atraumatic. Neck: Normal range of motion. Nontender. Supple. Heart: Regular. No murmurs. Normal rate. Intact distal pulses. Lungs: Clear to auscultation. No chest discomfort. No wheezes, rhonchi, or rales. Abdomen: Normal bowel sounds. Nontender. No rebound tenderness. Genitalia: Deferred. Back: No midline tenderness. Normal range of motion. Extremities: Normal range of motion. No injury. Skin: Intact. No rash. Warm. No erythema or pallor. Neurologic: No altered sensation. No weakness. Alert and oriented. Psychiatric: No suicidality. No anxiety or depression. No insomnia. Nursing notes and vitals signs are reviewed. Const: Vital Signs, click to edit/add: Vital Signs - 24 hr 04/06/23 22:42 04/06/23 22:48 Temperature 97.9 F Pulse Rate [Right Pulse Oximeter] 92 Respiratory Rate 20 Blood Pressure [Ri ght Upper Arm] 152/71 H Pulse Oximetry 96 96 Oxygen Delivery Me thod Room Air Course Vital Signs Vital signs: Initial Vital Signs Temperature 97.9 F 04/06/23 22:42 Temperature Source Temporal Artery Scan 04/06/23 22:42 Pulse Rate 92 04/06/23 22:42 Pulse Rhythm Regular 04/06/23 22:42 Pulse Strength 3+ Normal 04/06/23 22:42 Respiratory Rate 20 04/06/23 22:42 Respiratory Effort Normal, Spontaneous, Non-Labored 04/06/23 22:42 Respiratory Depth Normal 04/06/23 22:42 Respiratory Pattern Normal 04/06/23 22:42 Blood Pressure 152/71 H 04/06/23 22:42 Blood Pressure Mean 98 04/06/23 22:42 Blood Pressure Position Sitting 04/06/23 22:42 Pulse Oximetry 96 04/06/23 22:42 Oxygen Delivery Method Room Air 04/06/23 22:42 Vital Signs Temperature 97.9 F 04/06/23 22:42 Pulse Rate 92 04/06/23 22:42 Respiratory Rate 20 04/06/23 22:42 Blood Pressure 152/71 H 04/06/23 22:42 Pulse Oximetry 96 04/06/23 22:42 Oxygen Delivery Method Room Air 04/06/23 22:42 Temperature 97.9 F 04/06/23 22:42 Pulse Rate 92 04/06/23 22:42 Respiratory Rate 20 04/06/23 22:42 Blood Pressure 152/71 H 04/06/23 22:42 Pulse Oximetry 96 04/06/23 22:48 Oxygen Delivery Method Room Air 04/06/23 22:42 MDM - SOB/Dyspnea MDM Narrative Medical decision making narrative: This patient comes in for evaluation of his breathing. He arrives with normal vital signs and is in no acute distress. He clarifies this to state that when he lays on his side at night he feels some agitation and has difficulty getting to sleep. He did lay on his left side in a position where he would typically sleep and there was no change in his vital signs or oximetry. He is completing a course of antibiotic treatment for a lower respiratory infection. Repeat chest x-ray today shows no acute findings. The patient is okay to return home. I stated that it is okay for him to use Benadryl 25-50 mg at night as needed for insomnia. Discharge Plan Discharge Clinical Impression: Insomnia Patient Disposition: Home, Self-Care Condition: Stable Additional Instructions: Continue current plans. Okay to use Benadryl 25-50 mg at night as needed for a sleep aid. Follow up with MD otherwise as needed. Prescriptions: No Action amlodipine 10 mg tablet 10 mg PO DAILY aripiprazole 15 mg tablet 7.5 mg PO DAILY Eliquis 5 mg tablet 5 mg PO BID aspirin 81 mg tablet,delayed release (DR/EC) 81 mg PO DAILY venlafaxine 75 mg capsule,extended release 24hr 225 mg PO DAILY torsemide 20 mg tablet 20 mg PO DAILY isosorbide mononitrate 30 mg tablet extended release 24 hr 30 mg PO DAILY chlorthalidone 25 mg tablet 25 mg PO DAILY carbamazepine 200 mg tablet 200 mg PO BID pravastatin 80 mg tablet 80 mg PO HS pantoprazole 40 mg tablet,delayed release (DR/EC) 40 mg PO DAILY hydralazine 50 mg tablet 50 mg PO QID Patient Comments: 08,12,16,20 ezetimibe 10 mg tablet 10 mg PO DAILY pregabalin 100 mg capsule 100 mg PO QAM pregabalin 150 mg capsule 150 mg PO HS polyethylene glycol 3350 17 gram/dose powder 17 g PO DAILY Rx Instructions: AND TWICE DAILY NEEDED sennosides [senna] 8.6 mg tablet 8.6 mg PO DAILY ketoconazole 2 % shampoo 1 applic TOPICAL Q3D diphenhydramine HCl [Banophen] 50 mg capsule 50 mg PO Q6H PRN (Reason: itching) loperamide 2 mg capsule 2 mg PO Q6H PRN (Reason: loose stool) acetaminophen 500 mg tablet 500 mg PO Q6H nystatin 100,000 unit/gram powder 1 applic TOPICAL BID PRN albuterol sulfate 90 mcg/actuation HFA aerosol inhaler 1 inh INHALATION Q4H PRN (Reason: bronchospasm) icosapent ethyl [Vascepa] 1 gram capsule 2 g PO BID Humulin R U-500 (Conc) Kwikpen 500 unit/mL (3 mL) insulin pen 85 unit SUBCUT TID potassium chloride 20 mEq tablet extended release 20 meq PO DAILY Qty: 10 2RF clotrimazole 1 % cream 1 applic topical BID Rx Instructions: GROIN,PERIAREA AND ABDOMIN fluconazole 150 mg tablet 150 mg PO TUFR@09 gatifloxacin 0.5 % drops 1 drp ophthalmic (eye) QID ketorolac 0.5 % drops 1 drp ophthalmic (eye) QID Rx Instructions: STOP DATE 08/11/22 prednisolone acetate 1 % drops,suspension 1 drp ophthalmic (eye) QID Rx Instructions: STOP DATE 08/12/22 ergocalciferol (vitamin D2) 1,250 mcg (50,000 unit) capsule 50,000 unit PO WE@09 carvedilol 25 mg Tablet 25 mg PO Q12H 30 Days Qty: 60 0RF lisinopril 20 mg Tablet 20 mg PO DAILY 30 Days Qty: 60 0RF amoxicillin-pot clavulanate 875-125 mg tablet 1 tab PO BID 7 Days Qty: 14 0RF nystatin 100,000 unit/gram powder 1 applic topical BID Qty: 30 1RF hydrocortisone 2.5 % cream 1 applic topical BID PRNQty: 30 1RF cephalexin 500 mg capsule 500 mg PO TID 10 Days Qty: 30 0RF potassium chloride 20 mEq packet 20 meq PO DAILY 3 Days Qty: 3 0RF amoxicillin-pot clavulanate 875-125 mg tablet 1 tab PO BID Qty: 13 0RF azithromycin [Zithromax] 250 mg tablet 250 mg PO DAILY 4 Days Qty: 4 0RF ammonium lactate 12 % lotion 1 applic topical BID Qty: 225 0RF Follow Up/Referrals: Provider,Not a Local [Primary Care Provider] - Stand Alone Forms: [facility] Inst[facility]
[2023-04-06 23:41] VITALS: BP 145/74; PULSE 84; RESP 20; TEMP 36.8; O2SAT 96
[2023-04-06 23:50] VITALS: BP 145/74; PULSE 84; RESP 20; TEMP 36.8
== END 2023-04-06 23:50 | disposition home or self-care (01) ==
PROVIDERS: Emergency Provider Emergency Medicine Emergency Medical Services
DX: G47.00 Insomnia, unspecified (principal)
CPT/HCPCS: 71045; 94761; 99283; 99284

== ENCOUNTER 2023-04-06 23:51 | Outpatient (CLI) | payer MEDICARE, MEDICAID, SELFPAY | END 2023-04-06 23:52 | disposition home or self-care (01) | LOC: AMB 04-07 10:39 | PROVIDERS: Visit Provider Emergency Medicine Emergency Medical Services | DX: R53.1 Weakness (principal) | CPT/HCPCS: A0425; A0428 ==

== ENCOUNTER 2023-11-03 09:02 | Outpatient (CLI) | payer MEDICARE, MEDICAID, SELFPAY ==
--- OUTSIDE RECORDS SUMMARY | 2023-11-06 05:49 | XMS_ITS | CCD ---
Author Name Marian VELASCO Chelo Address [address] 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 Role Phone Arpit [facility] Primary Care Provider Leona vailable Arpit [facility] Chronic Care Management U navailable Summary Purpose DataExchange Insurance Providers Payer name Policy type / Coverage type Covered constitution party ID Effective Begin Date Effective End Date Medicare [place] Medicare Part B [id number] Unknown Unknown Medicaid [place] Medicare Part B [id number] Unknown Unknown Family history Sister Brittany Suggs [...] Unknown Fpc 09/03/[address]: 0863087 Non-Smoker / No History of Smoking 09/02/[address]: 691184972 No Alcohol Consum ption 09/02/2020 Allergies, Adverse Reactions, Alerts Substance Reaction Codes Entered Date Inactivated Date Status LISINOPRIL RxNorm: 15603 02/12/2020 No Inactive Da te Active Metformin HCl Unknown 02/12/2020 No Inactive Cristiano e Active Problems Condition Codes Effective Dates Condition St atus Hypertensive heart disease w ithout heart failure ICD-10: I11.9 ICD-9: 402.90 05/04/2023 Active Type 2 diabetes mellitus wit h diabetic polyneuropathy, with long-term current use of insulin ICD-10: E11.42 ICD-9: 250.60 05/04/2023 Active Coronary artery disease invo lving [place] [...] F33. 9 ICD-9: 296.30 03/03/2023 Active Other longterm (current) dr ug therapy ICD-10: Z79.899 ICD-9: [...] Fill Instructions pregabalin 100 mg capsule RxNorm: 558978 Take 1 Capsule(s) Oral QAM every morning 04/27/20 23 024 Inactive Levemir FlexPen 100 unit/mL (3 mL) solution subcutaneous insulin pen RxNorm: 089661 Inject 30 Unit(s) Subcutaneous BID 04/27/20 23 024 Inactive rosuvastatin 40 mg tablet RxNorm: 315404 Take 1 Tablet(s) Oral QPM every evening 04/16/20 024 Inactive D/C rosuvastatin 20mg venlafaxine ER 75 mg capsule,extended release 24 hr RxNorm: 571489 Take 3 Capsule(s) Oral QD 04/14/20 023 Inactive pregabalin 100 mg capsule RxNorm: 525230 Take 1 Capsule(s) Oral QAM every morning [...] meter clotrimazole 1 % topical cream RxNorm: 833285 Take apply topically to abdominal folds twice daily for 14 days 03/12/20 024 Inactive Ozempic 1 mg/dose (4 mg/3 mL) subcutaneous pen injector RxNorm: 8770508 Inject 1 Milligram(s) Subcutaneous QW once a week 03/11/20 23 023 Inactive rosuvastatin 20 mg tablet RxNorm: 205299 Take 1 Tablet(s) Oral QD 02/26/20 023 Inactive d/c pravastatin 80mg Ozempic 1 mg/dose (4 mg/3 mL) subcutaneous pen injector RxNorm: 3808537 Inject 1 Milligram(s) Subcutaneous QW once a week 02/20/20 23 023 Inactive pregabalin 150 mg capsule RxNorm: 383483 Take 1 Capsule(s) Oral HS at bed time 02/19/20 23 023 Inactive pregabalin 100 mg capsule RxNorm: 028393 Take 1 Capsule(s) Oral QAM every morning 02/18/20 23 023 Inactive FreeStyle Chema 2 Sensor kit RxNorm: use as directed 02/04/20 23 024 Inactive venlafaxine ER 75 mg capsule,extended release 24 hr RxNorm: 186402 Take 3 Capsule(s) Oral QD 02/04/20 23 023 Inactive FreeStyle Chema 2 Sensor kit RxNorm: use as directed 02/04/20 23 023 Inactive fluconazole 150 mg tablet RxNorm: 160257 Take 1 Tablet(s) Oral on day 3 and on day 6 02/03/20 23 024 Active chlorthalidone 25 mg tablet RxNorm: 767527 Take 1 Tablet(s) Oral QAM every morning 02/03/20 23 No Stop Date Active venlafaxine ER 150 mg capsule,extended release 24 hr RxNorm: 803997 Take 1 Capsule(s) Oral QD 02/03/20 23 023 Inactive acetaminophen 500 mg tablet RxNorm: 406978 1 TABLET ORALLY 3 TIMES DAILY (MAX APAP:4GM/24HR) 12/15/19 23 023 Inactive potassium chloride ER 20 mEq tablet,extended release RxNorm: 470708 Take 1 Tablet(s) Oral BID 12/09/19 23 024 Inactive d/c 20mEq once daily (sent from hospital) clotrimazole 1 % topical cream RxNorm: 818971 apply 1g topically to top of feet and in between toes BID 12/09/19 23 023 Inactive nystatin 100,000 unit/gram topical powder RxNorm: 562985 APPLY TO AFFECTED AREAS TOPICALLY 2 TIMES DAILY 11/21/19 23 024 Inactive Nystop 100,000 unit/gram topical powder RxNorm: 300556 Apply to abd folds, under breasts and L side of groin Topical BID x 14 days, then BID PRN 11/20/19 23 023 Inactive dx: yeast dermatitis [place] Ultra Strength 4 %-30 %-10 % topical cream RxNorm: 976855 Apply 1 Gram(s) Topical QID PRN to feet and legs for neuropathic pain 11/11/19 024 Active hydrocortisone 2.5 % topical cream RxNorm: 031664 Apply 1/2 Gram(s) Topical BID as needed 11/10/19 23 024 Inactive clotrimazole 1 % topical cream RxNorm: 469996 Apply 1/2 Gram(s) Topical BID Apply to affected areas of groin, periarea, and abdominal topically 2 times daily 11/10/19 23 023 Inactive Humulin R U-500 (Concentrated) Insulin 500 unit/mL subcutaneous soln RxNorm: 465454 Inject 100 Unit(s) Subcutaneous TID 10/07/19 024 Inactive Ozempic 0.25 mg or 0.5 mg (2 mg/3 mL) subcutaneous pen injector RxNorm: 5047727 Inject 1/2 Milligram(s) Subcutaneous QW once a week 10/07/19 024 Inactive Levemir FlexPen 100 unit/mL (3 mL) solution subcutaneous insulin pen RxNorm: 442564 Inject 30 Unit(s) Subcutaneous BID 10/07/19 023 Inactive aripiprazole 15 mg tablet RxNorm: 439820 1/2 TAB (7.5MG) ORALLY DAILY (DX:MAJOR DEPRESSIVE DISORDER) 09/23/19 023 Inactive Lancets,Thin 28 gauge RxNorm: Use 1 as directed QID 09/15/19 23 024 Inactive Accu-Chek Guide test strips RxNorm: Use 1 Test Strip QID 09/15/19 23 023 Inactive ok to substitute with any covered alternative test strip torsemide 20 mg tablet RxNorm: 619638 Take 1 Tablet(s) Oral BID 09/09/19 23 024 Inactive d/c once daily dosing carvedilol 25 mg tablet RxNorm: 368233 Take 1 Tablet(s) Oral QD 08/25/19 23 024 Inactive pregabalin 150 mg capsule RxNorm: 324800 1 Capsule(s) Oral HS at bed time 08/18/19 23 023 Inactive pregabalin 100 mg capsule RxNorm: 010027 1 Capsule(s) Oral QAM every morning 08/18/19 23 023 Inactive carvedilol 25 mg tablet RxNorm: 922644 1 Tablet(s) Oral QD 07/28/19 23 023 Inactive lisinopril 20 mg tablet RxNorm: 648449 Give 1 Tablet(s) Oral QD 07/28/19 23 023 Inactive Lyrica 150 mg capsule RxNorm: 612362 Take 1 Capsule(s) Oral QHS every night at bedtime 07/19/19 023 Inactive d/c 100mg dose Diflucan 150 mg tablet RxNorm: 900172 Take 1 Tablet(s) Oral QD repeat on day 3 and 6 07/19/19 23 023 Inactive pregabalin 100 mg capsule RxNorm: 697914 Take 1 Capsule(s) Oral QAM every morning 07/19/19 023 Inactive gatifloxacin 0.5 % eye drops RxNorm: 414717 Instill 1 Drop(s) as directed TID Instill 1 drop in to affected eye(s) starting 1 day prior to surgery and continue until gone (do not exceed 4 weeks). 07/13/19 23 023 Inactive carvedilol 25 mg tablet RxNorm: 662769 2 Tablet(s) Oral BID 07/13/19 23 023 Inactive Humulin R Regular U-100 Insulin 100 unit/mL injection solution RxNorm: 787822 85 Unit(s) Injection TID 07/13/19 23 023 Inactive ketorolac 0.5 % eye drops RxNorm: 717203 Instill 1 Drop(s) as directed QID Instill 1 drop into affected eye(s) 4 times daily starting 1 day prior to surgery and continue until gone (do not exceed 4 weeks). 07/13/19 23 023 Inactive Diflucan 150 mg tablet RxNorm: 754069 Take 1 Tablet(s) Oral QD repeat on day 3 and 6 06/30/19 023 Inactive Accu-Chek Guide test strips RxNorm: Use 1 Test Strip QID Use 1 test strip to monitor blood glucose 4 times daily and as needed. Dx:E11.42. 06/23/19 023 Inactive ok to substitute with any covered alternative test strip dextromethorphan-gu aifenesin 10 mg-100 mg/5 mL oral liquid RxNorm: 818446 Take 10 Milliliter(s) Oral every 4 hours as needed for cough 06/19/19 023 Inactive dextromethorphan-gu aifenesin 10 mg-100 mg/5 mL oral liquid RxNorm: 771488 Take 10 Milliliter(s) Oral every 4 hours as needed for cough 06/19/19 023 Inactive Lyrica 150 mg capsule RxNorm: 911755 Take 1 Capsule(s) Oral QHS every night at bedtime 06/18/19 023 Inactive d/c 100mg dose aripiprazole 15 mg tablet RxNorm: 565005 1/2 TAB (7.5MG) ORALLY DAILY (DX:MAJOR DEPRESSIVE DISORDER) 06/05/19 023 Inactive pregabalin 100 mg capsule RxNorm: 208812 1 Capsule(s) Oral QAM every morning 06/02/19 023 Inactive Banophen 50 mg capsule RxNorm: 2012039 Take 1 Capsule(s) Oral Q6H every 6 hours as needed 05/19/19 23 No Stop Date Active Novolog Flexpen U-100 Insulin aspart 100 unit/mL (3 mL) subcutaneous RxNorm: 0225818 Inject 10 Unit(s) Subcutaneous QHS every night at bedtime with nighttime snack 04/08/20 022 Inactive Novolog Flexpen U-100 Insulin aspart 100 unit/mL (3 mL) subcutaneous RxNorm: 6678467 Inject 42 Unit(s) Subcutaneous TID in addition to sliding scale 04/08/20 022 Inactive d/c 36u albuterol sulfate HFA 90 mcg/actuation aerosol inhaler RxNorm: 7337214 Take 2 Puff(s) Inhalation Q4H every four hours as needed as needed for SOB, cough, or wheezing 04/07/2004/24/2 030 Active Banophen 50 mg capsule RxNorm: 5691150 Take 1 Capsule(s) Oral Q6H every 6 hours as needed 04/06/20 023 Inactive diphenhydramine 50 mg tablet RxNorm: 8584538 Take 1 Tablet(s) Oral Q6H every 6 hours as needed 04/06/20 22 022 Inactive diphenhydramine 50 mg tablet RxNorm: 7617156 1 Tablet(s) Oral Q6H every 6 hours as needed 04/06/20 22 022 Inactive Abilify 15 mg tablet RxNorm: 007715 1/2 Tablet(s) Oral QD 03/10/20 023 Inactive Shingrix (PF) 50 mcg/0.5 mL intramuscular suspension, kit RxNorm: 7630020 Administer 1/2 Milliliter(s) Intramuscular QD one time shingrix step 2 ( step 1 given 11/04/21) WITH needle - Nursing please administer upon arrival and once administered post a bridge message 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, 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, expiration date, and lot# so we can update [facility] 02/18/20 22 022 Inactive dispense with needle Shingrix (PF) 50 mcg/0.5 mL intramuscular suspension, kit RxNorm: 3198136 Administer 1/2 Milliliter(s) Intramuscular QD one time shingrix step 2 ( step 1 given 11/04/21) WITH needle - Nursing please administer upon arrival and once administered post a bridge message with date of administration, horn player, expiration date, and lot# so we can update [facility] 02/18/20 22 022 Inactive dispense with needle polyethylene glycol 3350 17 gram/dose oral powder RxNorm: 978254 Take 17=1 capful Gram(s) Oral QD mix with 4-8oz of liquid 01/08/20 22 023 Inactive take this in addition to BID prn order Lyrica 100 mg capsule RxNorm: 531222 Take 1 Capsule(s) Oral QAM every morning 01/08/20 22 022 Inactive d/c 50mg dose acetaminophen 500 mg tablet RxNorm: 264354 Take 1 Tablet(s) Oral TID 01/08/20 22 022 Inactive d/c PRN order Lyrica 150 mg capsule RxNorm: 169335 Take 1 Capsule(s) Oral QHS every night at bedtime 01/08/20 22 023 Inactive d/c 100mg dose Abilify 5 mg tablet RxNorm: 752282 Take 1 Tablet(s) Oral QD take 1 tab po QD #30 refill 5 dx: MDD 12/12/19 22 022 Inactive Abilify 5 mg tablet RxNorm: 991317 Take 1 Tablet(s) Oral QD take 1 tab po QD #30 refill 5 dx: MDD 12/12/19 22 022 Inactive Novolog Flexpen U-100 Insulin aspart 100 unit/mL (3 mL) subcutaneous RxNorm: 3095202 Inject 42 Unit(s) Subcutaneous TID in addition to sliding scale 12/10/19 22 Inactive d/c 36u chlorthalidone 25 mg tablet RxNorm: 276627 Take 1 Tablet(s) Oral QAM every morning 12/10/19 22 023 Inactive pregabalin 50 mg capsule RxNorm: 849421 Take 1 Capsule(s) Oral QAM every morning 11/12/19 22 022 Inactive tetanus-diphtheria toxoids-Td 2 Lf unit-2 Lf unit/0.5 mL IM suspension RxNorm: 139 Take 0.5 Miscellaneous Intramuscular 11/12/19 22 022 Inactive need tdap - nursing to administer upon arrival pregabalin 50 mg capsule RxNorm: 984779 Take 1 Capsule(s) Oral QAM every morning 10/16/19 22 022 Inactive pregabalin 50 mg capsule RxNorm: 190499 Take 1 Capsule(s) Oral QAM every morning 10/16/19 22 022 Inactive pregabalin 50 mg capsule RxNorm: 082666 1 Capsule(s) Oral QAM every morning 10/15/19 22 022 Inactive Shingrix (PF) 50 mcg/0.5 mL intramuscular suspension, kit RxNorm: 1167558 Administer 1/2 Milliliter(s) Intramuscular one time Nursing please administer upon arrival and once administered post a bridge message with date of administration, horn player, expiration date, and lot# so we can update [facility]. 10/09/19 22 022 Inactive shingrix step 1 Shingrix (PF) 50 mcg/0.5 mL intramuscular suspension, kit RxNorm: 4595393 Administer 1/2 Milliliter(s) Intramuscular one time Nursing please administer upon arrival and once administered post a bridge message with date of administration, horn player, expiration date, and lot# so we can update [facility]. 10/09/19 22 022 Inactive shingrix step 1 cholecalciferol (vitamin D3) 1,250 mcg (50,000 unit) capsule RxNorm: 545895 Take 1 Capsule(s) Oral QW once a [...] aspart 100 unit/mL (3 mL) subcutaneous RxNorm: 7015123 Inject 10 Unit(s) Subcutaneous QHS every night at bedtime with nighttime snack 10/08/19 22 Inactive Shingrix (PF) 50 mcg/0.5 mL intramuscular suspension, kit RxNorm: 2290951 ADMINISTER 2-DOSE SERIES PER CDC GUIDELINES 10/08/19 22 Active Shingrix (PF) 50 mcg/0.5 mL intramuscular suspension, kit RxNorm: 5345095 ADMINISTER 2-DOSE SERIES PER CDC GUIDELINES 10/08/19 22 Inactive Novolog Flexpen U-100 Insulin aspart 100 unit/mL (3 mL) subcutaneous RxNorm: 4813421 Inject 36 Unit(s) Subcutaneous TID in addition to sliding scale 10/08/19 22 07/25/2 022 Inactive Novofine Autocover 30 gauge x 1/3 needle RxNorm: Use 1 Miscellaneous UD as directed Use 1 needle as directed to administer insulin 5 times a day Dx:E11.42. 10/03/19 Inactive ok to substitute with any covered alternative pen needle benzoyl peroxide 10 % topical cleanser RxNorm: 248945 Apply 1 Application Topical QD apply to face, wash rinse and dry once daily (may change to QOD if drying) 08/19/19 022 Inactive (%covered by insurance) #60ml refill 11 dx: acne benzoyl peroxide 10 % topical cleanser RxNorm: 957094 Apply 1 Application Topical QD apply to face, wash rinse and dry once daily (may change to QOD if drying) 08/19/19 022 Inactive (%covered by insurance) #60ml refill 11 dx: acne benzoyl peroxide 10 % topical cleanser RxNorm: 096186 Apply 1 Application Topical QD apply to face, wash rinse and dry once daily (may change to QOD if drying) 08/19/19 022 Inactive (%covered by insurance) #60ml refill 11 dx: acne Lyrica 50 mg capsule RxNorm: 009089 Take 1 Capsule(s) Oral QAM every morning Take 1 capsule by mouth once daily 08/19/19 022 Inactive benzoyl peroxide 10 % topical cleanser RxNorm: 943646 Apply 1 Application Topical QD apply to face, wash rinse and dry once daily (may change to QOD if drying) 08/19/19 022 Inactive (%covered by insurance) #60ml refill 11 dx: acne Lyrica 100 mg capsule RxNorm: 009540 Take 1 Capsule(s) Oral QHS every night at bedtime Take 1 capsule by mouth once daily at bedtime 08/19/19 Inactive Lyrica 100 mg capsule RxNorm: 811619 Take 1 Capsule(s) Oral QHS every night at bedtime Take 1 capsule by mouth once daily at bedtime 08/16/19 22 Inactive Lyrica 50 mg capsule RxNorm: 718160 Take 1 Capsule(s) Oral QAM every morning Take 1 capsule by mouth once daily 08/16/19 22 022 Inactive Levemir FlexTouch U-100 Insulin 100 unit/mL (3 mL) subcutaneous pen RxNorm: 991333 Inject 86 Unit(s) Subcutaneous BID 08/05/19 22 022 Inactive d/c 83units BID Lyrica 100 mg capsule RxNorm: 841284 Take 1 Capsule(s) Oral QHS every night at bedtime Take 1 capsule by mouth once daily at bedtime 07/14/19 22 022 Inactive Lyrica 50 mg capsule RxNorm: 541485 Take 1 Capsule(s) Oral QAM every morning Take 1 capsule by mouth once daily 07/14/19 22 022 Inactive Levemir FlexTouch U-100 Insulin 100 unit/mL (3 mL) subcutaneous pen RxNorm: 172558 Inject 83 Unit(s) Subcutaneous BID 07/08/19 22 [...] 30 mg tablet,extended release 24 hr RxNorm: 128839 Take 1 Tablet(s) Oral QD 05/05/20 21 024 Inactive hydralazine 50 mg tablet RxNorm: 966910 Take 1 Tablet(s) Oral QID 05/05/20 022 Inactive venlafaxine ER 225 mg tablet,extended release 24 hr RxNorm: 541831 Take 1 Tablet(s) Oral QD 05/05/20 021 Inactive venlafaxine ER 225 mg tablet,extended release 24 hr RxNorm: 912523 Take 1 Tablet(s) Oral QD 05/05/20 022 Inactive hydralazine 50 mg tablet RxNorm: 600950 Take 1 Tablet(s) Oral QID 05/05/20 Inactive aspirin 81 mg tablet,delayed release RxNorm: 518034 Take 1 Tablet(s) Oral QD 03/31/20 022 Inactive Zetia 10 mg tablet RxNorm: 133058 Take 1 Tablet(s) Oral QD 03/31/20 024 Inactive Vitamin D2 1,250 mcg (50,000 unit) capsule RxNorm: 9395337 Take 1 Capsule(s) Oral QW once a week x 12 weeks 03/31/20 022 Inactive Vitamin D2 1,250 mcg (50,000 unit) capsule RxNorm: 5348813 Take 1 Capsule(s) Oral QW once a week 03/31/20 021 Inactive Zetia 10 mg tablet RxNorm: 290479 Take 1 Tablet(s) Oral QD 03/31/20 021 Inactive hydralazine 25 mg tablet RxNorm: 800946 Take 1 Tablet(s) Oral QID 03/31/20 021 Inactive hydralazine 25 mg tablet RxNorm: 567134 Take 1 Tablet(s) Oral QID 03/31/20 021 Inactive hydralazine 10 mg tablet RxNorm: 434906 Take 1 Tablet(s) Oral QID 03/03/20 021 Inactive cephalexin 500 mg tablet RxNorm: 549724 Take 1 Tablet(s) Oral QID 02/27/20 021 Inactive cephalexin 500 mg tablet RxNorm: 709283 Take 1 Tablet(s) Oral QID 02/27/20 021 Inactive lisinopril 40 mg tablet RxNorm: 112681 Take 1 Tablet(s) Oral QD 02/11/20 023 Inactive Eliquis 5 mg tablet RxNorm: 8450748 Take 1 Tablet(s) Oral BID 01/05/20 022 Inactive Eliquis 5 mg tablet RxNorm: 8309696 Take 2 Tablet(s) Oral QD 01/01/20 021 Inactive Lyrica 50 mg capsule RxNorm: 350530 Take 1 Capsule(s) Oral QAM every morning 12/24/19 021 Inactive Lyrica 100 mg capsule RxNorm: 821326 Take 1 Capsule(s) Oral QHS every night at bedtime 12/24/19 021 Inactive clotrimazole 1 % topical cream RxNorm: 721537 Apply to right foot and toes Topical BID 12/04/19 21 023 Inactive metoprolol succinate ER 200 mg tablet,extended release 24 hr RxNorm: 327287 Take 1 Tablet(s) Oral QD 12/04/19 21 023 Inactive ciprofloxacin 500 mg tablet RxNorm: 455805 Take 1 Tablet(s) Oral QD 11/30/19 21 021 Inactive DX ofloxacin otic drops Accu-Chek Guide test strips RxNorm: USE 1 TO CHECK GLUCOSE 4 TIMES DAILY AND NEEDED 11/15/19 21 023 Inactive Blood Glucose Test strips RxNorm: Use 1 Test Strip QID at PRN 11/05/19 21 023 Inactive E11.42 lisinopril 30 mg tablet RxNorm: 899190 Take 1 Tablet(s) Oral QD 10/30/19 21 021 Inactive lisinopril 20 mg tablet RxNorm: 081901 Take 1 Tablet(s) Oral QD 10/23/19 21 021 Inactive lisinopril 20 mg tablet RxNorm: 344171 Take 1 Tablet(s) Oral QD 10/23/19 21 021 Inactive lisinopril 10 mg tablet RxNorm: 517966 Take 1 Tablet(s) Oral QD 10/02/19 21 021 Inactive icosapent ethyl 1 gram capsule RxNorm: 0845322 Take 2 Capsule(s) (2 gm) Oral BID with meals 09/12/19 024 Inactive Okay to dispense one 2gm tab if you have that available. icosapent ethyl 1 gram capsule RxNorm: 1157499 Take 2 Capsule(s) Oral BID 09/12/19 21 021 Inactive Okay to dispense one 2gm tab if you have that available. amlodipine 10 mg tablet RxNorm: 792535 Take 1 Tablet(s) Oral QD 09/04/19 21 022 Inactive aspirin 81 mg tablet,delayed release RxNorm: 495008 Take 1 Tablet(s) Oral QD 09/04/19 21 021 Inactive Levemir FlexTouch U-100 Insulin 100 unit/mL (3 mL) subcutaneous pen RxNorm: 626683 Inject 150 Unit(s) Subcutaneous BID 09/04/19 21 022 Inactive venlafaxine ER 150 mg tablet,extended release 24 hr RxNorm: 556313 Take 1 Tablet(s) Oral QD 09/04/19 21 021 Inactive clotrimazole-betame thasone 1 %-0.05 % topical cream RxNorm: 251808 Apply to rash on red area on left abdomen/chest Topical BID 08/10/19 21 021 Inactive amlodipine 5 mg tablet RxNorm: 737404 Take 1 Tablet(s) Oral QD 07/31/19 21 Inactive cephalexin 500 mg tablet RxNorm: 784486 Take 1 Tablet(s) Oral BID BID - Twice Daily 07/31/19 21 Inactive Start 08/01/20 pantoprazole 40 mg tablet,delayed release RxNorm: 335129 Take 1 Tablet(s) Oral QAM every morning 07/08/19 022 Inactive senna 8.6 mg tablet RxNorm: 732469 Take 1 Tablet(s) Oral QD 07/08/19 022 Inactive carbamazepine 200 mg tablet RxNorm: 415211 Take 1 Tablet(s) Oral BID 07/08/19 Inactive clopidogrel 75 mg tablet RxNorm: 651645 Take 1 Tablet(s) Oral QD 07/08/19 021 Inactive Blood Glucose Test strips RxNorm: Use 1 Test Strip QID at PRN 07/08/19 Inactive E11.42 Novolog Flexpen U-100 Insulin aspart 100 unit/mL (3 mL) subcutaneous RxNorm: 4161583 Administer per sliding scale Milliliter(s) Subcutaneous TID 151-200: 10 u; 201-250: 20 u; 251-300: 30 u; 301-350: 40 u; 351-400: 50 u. 07/08/19 022 Inactive lisinopril 5 mg tablet RxNorm: 736197 Take 1 Tablet(s) Oral QD 07/08/19 Inactive Novolog Flexpen U-100 Insulin aspart 100 unit/mL (3 mL) subcutaneous RxNorm: 4306064 Inject 85 Unit(s) Subcutaneous TID 07/08/19 022 Inactive pravastatin 80 mg tablet RxNorm: 264078 Take 1 Tablet(s) Oral QHS every night at bedtime 07/08/19 023 Inactive clotrimazole 1 % topical cream RxNorm: 022401 Apply to bilateral groin areas Topical BID 07/08/19 022 Inactive metoprolol succinate ER 200 mg tablet,extended release 24 hr RxNorm: 664394 Take 1 Tablet(s) Oral QD 07/08/19 021 Inactive Vitamin D3 25 mcg (1,000 unit) tablet RxNorm: 496427 Take 1 Tablet(s) Oral QD 07/08/19 021 Inactive isosorbide dinitrate 30 mg tablet RxNorm: 842987 Take 1 Tablet(s) Oral QD 07/08/19 021 Inactive Levemir FlexTouch U-100 Insulin 100 unit/mL (3 mL) subcutaneous pen RxNorm: 280261 Inject 140 Unit(s) Subcutaneous BID 07/08/19 021 Inactive torsemide 20 mg tablet RxNorm: 937610 Take 1 Tablet(s) Oral QD 07/08/19 21 023 Inactive venlafaxine 75 mg tablet RxNorm: 169997 Take 1 Tablet(s) Oral QD 07/08/19 021 Inactive acetaminophen 500 mg tablet RxNorm: 106596 Take 1 Tablet(s) Oral TID as needed for headache 06/18/19 021 Inactive acetaminophen 500 mg tablet RxNorm: 188889 Take 1 Tablet(s) Oral TID as needed for headache 06/18/19 021 Inactive Lyrica 100 mg capsule RxNorm: 892947 Take 1 Capsule(s) Oral QHS every night at bedtime 06/11/19 021 Inactive Lyrica 50 mg capsule RxNorm: 895702 Take 1 Capsule(s) Oral QAM every morning 06/10/19 021 Inactive hydrocortisone 2.5 % topical cream RxNorm: 287743 Apply to bilateral groin creases Topical BID 05/15/20 20 021 Inactive clotrimazole 1 % topical cream RxNorm: 310014 Apply to bilateral groin areas Topical BID 05/15/20 20 021 Inactive Lyrica 50 mg capsule RxNorm: 497294 Take 1 Capsule(s) Oral QAM every morning 05/14/20 20 Inactive Lyrica 100 mg capsule RxNorm: 208157 Take 1 Capsule(s) Oral QHS every night [...] Inactive Nystop 100,000 unit/gram topical powder RxNorm: 249009 Apply to abd folds, under breasts and L side of groin Topical BID x 14 days, then BID PRN 04/08/20 20 Inactive dx: yeast dermatitis Lyrica 100 mg capsule RxNorm: 863537 Take 1 Capsule(s) Oral QHS every night at bedtime 03/13/20 20 Inactive Lyrica 50 mg capsule RxNorm: 032009 Take 1 Capsule(s) Oral QAM every morning 03/13/20 20 Inactive ketoconazole 2 % shampoo RxNorm: 241963 Apply Topical two times a week with showers 03/11/20 20 024 Inactive cholecalciferol (vitamin D3) 50 mcg (2,000 unit) tablet RxNorm: 611899 Take 1 Tablet(s) Oral QD 03/11/20 20 021 Inactive Zetia 10 mg tablet RxNorm: 536862 Take 1 Tablet(s) Oral QD 03/07/20 20 021 Inactive Zetia 10 mg tablet RxNorm: 246055 Take 1 Tablet(s) Oral QD 03/07/20 20 Inactive Lyrica 50 mg capsule RxNorm: 581168 Take 1 Capsule(s) Oral QAM every morning 02/15/20 20 Inactive Lyrica 100 mg capsule RxNorm: 379265 Take 1 Capsule(s) Oral QHS every night at bedtime 02/15/20 20 Inactive Lyrica 100 mg capsule RxNorm: 672982 Take 1 Capsule(s) Oral QHS every night at bedtime 02/15/20 20 Inactive Lyrica 50 mg capsule RxNorm: 774403 Take 1 Capsule(s) Oral QAM every morning 02/15/20 20 Inactive polyethylene glycol 3350 17 gram/dose oral powder RxNorm: 561340 Take 17=1 capful Gram(s) Oral BID as needed mix with 4-8oz of liquid 06/12/19 22 024 Inactive metoprolol succinate ER 200 mg tablet,extended release 24 hr RxNorm: 434356 Take 1 Tablet(s) Oral QD 08/12/19 23 Active loperamide 2 mg capsule RxNorm: 196833 Take 1 Capsule(s) Oral QID as needed 06/12/19 22 Active hydralazine 50 mg tablet RxNorm: 253104 Take 1 Tablet(s) Oral QID 08/12/19 23 Active venlafaxine ER 75 mg capsule,extended release 24 hr RxNorm: 350804 Take 3 Capsule(s) Oral QD 06/12/19 22 023 Inactive icosapent ethyl 1 gram capsule RxNorm: 2832139 Take 2 Capsule(s) (2 gm) Oral BID with meals 10/07/19 23 023 Inactive Okay to dispense one 2gm tab if you have that available. Levemir FlexTouch U-100 Insulin 100 unit/mL (3 mL) subcutaneous pen RxNorm: 700957 Inject 80 Unit(s) Subcutaneous BID 07/14/19 23 023 Inactive Novolog Flexpen U-100 Insulin aspart 100 unit/mL (3 mL) subcutaneous RxNorm: 0964361 Insert 30 Unit(s) Subcutaneous TID with meals 10/08/19 22 022 Inactive Medication Administered No Medication Administered data Procedures Procedure Codes Date SYS BP LESS 140 CPT-4: G8752 05/04/2023 CUI BP LESS 90 CPT-4: G8754 05/04/2023 Vital Signs Date Vital 05/04/2023 Blood Pressure 1: 123/76 Code: 8480-6 BMI: NaN Code: 15342-9 Heart Rate 1: 86 bpm Code: 8867-4 Height: 5'5 Code: 8302-2 Respiratory Rate: 18 bpm Weight: Code: 3141-9 Reason For Visit No Reason For Visit data Encounters Encounter Performer Location Location Address Codes Date ([address]855) Home or Residence Visit Est Pt - Low Level, 30 mins Diagnosis: Type 2 diabetes mellitus with diabetic polyneuropathy, with long-term current use of insulin[ICD10: E11.42] Diagnosis: Hypertensive heart disease without heart failure[ICD10: I11.9] Chelo Fon[facility] [place] [address] [address] [place] [address] CPT-4: 96835 05/04/2023 Plan of Care Planned Activity Notes Codes Status Date Appointment: Sandra Clark WPtel: [address] Telehealth Psych Follow Up 12/09 Appointment: Tapan Shirley WPtel: [address] [facility] [address] [id number] [facility] 10/26/2022 Referral: [facility] WPtel: [address] , [address] [id number] [place] Referral Records Received 09/21/2022 Appointment: Tapan Shirley WPtel: [address] [facility] 300 [id number] [place] F/U 08/11/2022 Appointment: Tapan Shirley WPtel: [address] [facility] 300 [id number] [place] F/U 07/14/2022 Appointment: Tapan Shirley WPtel: [address] [facility] 300 [id number] [place] F/U 02/10/2022 Referral: [facility] WPtel: [address] [facility] [address] [id number] [place] Referral Completed 05/28/2021 Referral: General Cardiology [...] attention.??Sister Jyotsna involved in his care cell# [phone]??Guardian: Giulia (tapan met in person 09/01/21), now has Lexii (same group as giulia)Lab Schedule: Mar-/September*September (CBC with diff, CMP, A1c) (Novemebr: CBC, CMP, A1c, Lipids, VitD) 10/08/2023 Hypertensive heart disease w [facility] heart failure Cardiology follow up this month. BP log reviewed without concerns. Will continue current regimen Type 2 diabetes mellitus with diabetic polyneuropathy, with long-term current use of insulin Encouraged regular endo follow up. He is reportedly out of Ozempic which was supposed to be given today. Will send refills.??. 05/04/2023
--- OUTSIDE RECORDS SUMMARY | 2023-11-06 05:49 | XMS_ITS | CCD ---
Author Name Marian VELASCO Chelo Address [address] [place] [address] Phone Organization [facility] Phone Care Team Providers Care Tile Conduit Layer Name Role Phone Arpit [facility]IN[facility] Primary Care Provider Leona vailable Arpit [facility] Chronic Care Management U navailable Summary Purpose DataExchange Insurance Providers Payer name Policy type / Coverage type Covered libertarian ID Effective Begin Date Effective End Date Medicare [place] Medicare Part B [id number] Unknown Unknown Medicaid [place] Medicare Part B [id number] Unknown Unknown Family history Sister Brittany Suggs [...] Unknown [facility] 09/03/[address]: 7632206 Non-Smoker / No History of Smoking 09/02/[address]: 342866517 No Alcohol Consum ption 09/02/2020 Allergies, Adverse Reactions, Alerts Substance Reaction Codes Entered Date Inactivated Date Status LISINOPRIL RxNorm: 11520 02/12/2020 No Inactive Da te Active Metformin HCl Unknown 02/12/2020 No Inactive Cristiano e Active Problems Condition Codes Effective Dates Condition St atus Coronary artery disease invo lving [place] coronary [...] 9 ICD-9: 296.30 03/03/2023 Active 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 ICD-10: Z79.899 ICD-9: [...] immunization ICD-10: Z23 ICD-9: V03.89 02/10/2022 Resolved custodial (current) use of insulin ICD-10: Z79.4 02/10 [...] Fill Instructions rosuvastatin 40 mg tablet RxNorm: 932642 Take 1 Tablet(s) Oral QPM every evening 04/16/20 024 Inactive D/C rosuvastatin 20mg venlafaxine ER 75 mg capsule,extended release 24 hr RxNorm: 442743 Take 3 Capsule(s) Oral QD 04/14/20 23 023 Inactive pregabalin 100 mg capsule RxNorm: 674475 Take 1 Capsule(s) Oral QAM every morning [...] meter clotrimazole 1 % topical cream RxNorm: 546176 Take apply topically to abdominal folds twice daily for 14 days 03/12/20 024 Inactive Ozempic 1 mg/dose (4 mg/3 mL) subcutaneous pen injector RxNorm: 3455662 Inject 1 Milligram(s) Subcutaneous QW once a week 03/11/20 23 023 Inactive rosuvastatin 20 mg tablet RxNorm: 402312 Take 1 Tablet(s) Oral QD 02/26/20 23 023 Inactive d/c pravastatin 80mg Ozempic 1 mg/dose (4 mg/3 mL) subcutaneous pen injector RxNorm: 6932407 Inject 1 Milligram(s) Subcutaneous QW once a week 02/20/20 23 023 Inactive pregabalin 150 mg capsule RxNorm: 298741 Take 1 Capsule(s) Oral HS at bed time 02/19/20 23 023 Inactive pregabalin 100 mg capsule RxNorm: 830363 Take 1 Capsule(s) Oral QAM every morning 02/18/20 23 023 Inactive FreeStyle Chema 2 Sensor kit RxNorm: use as directed 02/04/20 23 024 Inactive venlafaxine ER 75 mg capsule,extended release 24 hr RxNorm: 903867 Take 3 Capsule(s) Oral QD 02/04/20 23 023 Inactive FreeStyle Chema 2 Sensor kit RxNorm: use as directed 02/04/20 023 Inactive fluconazole 150 mg tablet RxNorm: 593953 Take 1 Tablet(s) Oral on day 3 and on day 6 02/03/20 23 024 Active chlorthalidone 25 mg tablet RxNorm: 068883 Take 1 Tablet(s) Oral QAM every morning 02/03/20 23 No Stop Date Active venlafaxine ER 150 mg capsule,extended release 24 hr RxNorm: 197827 Take 1 Capsule(s) Oral QD 02/03/20 023 Inactive acetaminophen 500 mg tablet RxNorm: 813134 1 TABLET ORALLY 3 TIMES DAILY (MAX APAP:4GM/24HR) 12/15/19 23 023 Inactive potassium chloride ER 20 mEq tablet,extended release RxNorm: 972034 Take 1 Tablet(s) Oral BID 12/09/19 23 024 Inactive d/c 20mEq once daily (sent from hospital) clotrimazole 1 % topical cream RxNorm: 727041 apply 1g topically to top of feet and in between toes BID 12/09/19 23 023 Inactive nystatin 100,000 unit/gram topical powder RxNorm: 825535 APPLY TO AFFECTED AREAS TOPICALLY 2 TIMES DAILY 11/21/19 23 024 Inactive Nystop 100,000 unit/gram topical powder RxNorm: 253468 Apply to abd folds, under breasts and L side of groin Topical BID x 14 days, then BID PRN 11/20/19 23 023 Inactive dx: yeast dermatitis Bengay Ultra Strength 4 %-30 %-10 % topical cream RxNorm: 506344 Apply 1 Gram(s) Topical QID PRN to feet and legs for neuropathic pain 11/11/19 23 024 Active hydrocortisone 2.5 % topical cream RxNorm: 889739 Apply 1/2 Gram(s) Topical BID as needed 11/10/19 024 Inactive clotrimazole 1 % topical cream RxNorm: 789351 Apply 1/2 Gram(s) Topical BID Apply to affected areas of groin, periarea, and abdominal topically 2 times daily 11/10/19 023 Inactive Levemir FlexPen 100 unit/mL (3 mL) solution subcutaneous insulin pen RxNorm: 259918 Inject 30 Unit(s) Subcutaneous BID 10/07/19 023 Inactive Humulin R U-500 (Concentrated) Insulin 500 unit/mL subcutaneous soln RxNorm: 280698 Inject 100 Unit(s) Subcutaneous TID 10/07/19 024 Inactive Ozempic 0.25 mg or 0.5 mg (2 mg/3 mL) subcutaneous pen injector RxNorm: 8030657 Inject 1/2 Milligram(s) Subcutaneous QW once a week 10/07/19 024 Inactive aripiprazole 15 mg tablet RxNorm: 554027 1/2 TAB (7.5MG) ORALLY DAILY (DX:MAJOR DEPRESSIVE DISORDER) 09/23/19 023 Inactive Lancets,Thin 28 gauge RxNorm: Use 1 as directed QID 09/15/19 23 024 Inactive Accu-Chek Guide test strips RxNorm: Use 1 Test Strip QID 09/15/19 023 Inactive ok to substitute with any covered alternative test strip torsemide 20 mg tablet RxNorm: 110566 Take 1 Tablet(s) Oral BID 09/09/19 23 024 Inactive d/c once daily dosing carvedilol 25 mg tablet RxNorm: 790815 Take 1 Tablet(s) Oral QD 08/25/19 23 024 Inactive pregabalin 150 mg capsule RxNorm: 778560 1 Capsule(s) Oral HS at bed time 08/18/19 023 Inactive pregabalin 100 mg capsule RxNorm: 098229 1 Capsule(s) Oral QAM every morning 08/18/19 023 Inactive carvedilol 25 mg tablet RxNorm: 335157 1 Tablet(s) Oral QD 07/28/19 23 023 Inactive lisinopril 20 mg tablet RxNorm: 507781 Give 1 Tablet(s) Oral QD 07/28/19 23 023 Inactive Lyrica 150 mg capsule RxNorm: 459960 Take 1 Capsule(s) Oral QHS every night at bedtime 07/19/19 23 023 Inactive d/c 100mg dose Diflucan 150 mg tablet RxNorm: 929345 Take 1 Tablet(s) Oral QD repeat on day 3 and 6 07/19/19 23 023 Inactive pregabalin 100 mg capsule RxNorm: 736050 Take 1 Capsule(s) Oral QAM every morning 07/19/19 023 Inactive gatifloxacin 0.5 % eye drops RxNorm: 686835 Instill 1 Drop(s) as directed TID Instill 1 drop in to affected eye(s) starting 1 day prior to surgery and continue until gone (do not exceed 4 weeks). 07/13/19 23 023 Inactive carvedilol 25 mg tablet RxNorm: 887733 2 Tablet(s) Oral BID 07/13/19 023 Inactive Humulin R Regular U-100 Insulin 100 unit/mL injection solution RxNorm: 307099 85 Unit(s) Injection TID 07/13/19 23 023 Inactive ketorolac 0.5 % eye drops RxNorm: 969217 Instill 1 Drop(s) as directed QID Instill 1 drop into affected eye(s) 4 times daily starting 1 day prior to surgery and continue until gone (do not exceed 4 weeks). 07/13/19 23 023 Inactive Diflucan 150 mg tablet RxNorm: 678618 Take 1 Tablet(s) Oral QD repeat on day 3 and 6 06/30/19 23 023 Inactive Accu-Chek Guide test strips RxNorm: Use 1 Test Strip QID Use 1 test strip to monitor blood glucose 4 times daily and as needed. Dx:E11.42. 06/23/19 23 023 Inactive ok to substitute with any covered alternative test strip dextromethorphan-gu aifenesin 10 mg-100 mg/5 mL oral liquid RxNorm: 117713 Take 10 Milliliter(s) Oral every 4 hours as needed for cough 06/19/19 23 023 Inactive dextromethorphan-gu aifenesin 10 mg-100 mg/5 mL oral liquid RxNorm: 561080 Take 10 Milliliter(s) Oral every 4 hours as needed for cough 06/19/19 023 Inactive Lyrica 150 mg capsule RxNorm: 678883 Take 1 Capsule(s) Oral QHS every night at bedtime 06/18/19 023 Inactive d/c 100mg dose aripiprazole 15 mg tablet RxNorm: 159620 /2 TAB (7.5MG) ORALLY DAILY (DX:MAJOR DEPRESSIVE DISORDER) 06/05/19 023 Inactive pregabalin 100 mg capsule RxNorm: 504397 1 Capsule(s) Oral QAM every morning 06/02/19 023 Inactive Banophen 50 mg capsule RxNorm: 3942478 Take 1 Capsule(s) Oral Q6H every 6 hours as needed 05/19/19 23 No Stop Date Active Novolog Flexpen U-100 Insulin aspart 100 unit/mL (3 mL) subcutaneous RxNorm: 5981012 Inject 10 Unit(s) Subcutaneous QHS every night at bedtime with nighttime snack 04/08/20 022 Inactive Novolog Flexpen U-100 Insulin aspart 100 unit/mL (3 mL) subcutaneous RxNorm: 8344276 Inject 42 Unit(s) Subcutaneous TID in addition to sliding scale 04/08/20 022 Inactive d/c 36u albuterol sulfate HFA 90 mcg/actuation aerosol inhaler RxNorm: 9314539 Take 2 Puff(s) Inhalation Q4H every four hours as needed as needed for SOB, cough, or wheezing 04/07/20 030 Active Banophen 50 mg capsule RxNorm: 5353748 Take 1 Capsule(s) Oral Q6H every 6 hours as needed 04/06/20 023 Inactive diphenhydramine 50 mg tablet RxNorm: 6517600 Take 1 Tablet(s) Oral Q6H every 6 hours as needed 04/06/20 22 022 Inactive diphenhydramine 50 mg tablet RxNorm: 1570454 1 Tablet(s) Oral Q6H every 6 hours as needed 04/06/20 22 022 Inactive Abilify 15 mg tablet RxNorm: 812532 1/2 Tablet(s) Oral QD 03/10/20 22 023 Inactive Shingrix (PF) 50 mcg/0.5 mL intramuscular suspension, kit RxNorm: 7208303 Administer 1/2 Milliliter(s) Intramuscular QD one time shingrix step 2 ( step 1 given 11/04/21) WITH needle - Nursing please administer upon arrival and once administered post a bridge message with date of administration, division director, expiration date, and lot# so we can update [facility] 02/18/20 22 022 Inactive dispense with needle Shingrix (PF) 50 mcg/0.5 mL intramuscular suspension, kit RxNorm: 9374119 Administer 1/2 Milliliter(s) Intramuscular QD one time shingrix step 2 ( step 1 given 11/04/21) WITH needle - Nursing please administer upon arrival and once administered post a bridge message with date of administration, division director, expiration date, and lot# so we can update [facility] 02/18/20 22 022 Inactive dispense with needle polyethylene glycol 3350 17 gram/dose oral powder RxNorm: 046204 Take 17=1 capful Gram(s) Oral QD mix with 4-8oz of liquid 01/08/20 023 Inactive take this in addition to BID prn order Lyrica 100 mg capsule RxNorm: 198684 Take 1 Capsule(s) Oral QAM every morning 01/08/20 22 022 Inactive d/c 50mg dose acetaminophen 500 mg tablet RxNorm: 754032 Take 1 Tablet(s) Oral TID 01/08/20 22 022 Inactive d/c PRN order Lyrica 150 mg capsule RxNorm: 132924 Take 1 Capsule(s) Oral QHS every night at bedtime 01/08/20 22 023 Inactive d/c 100mg dose Abilify 5 mg tablet RxNorm: 342243 Take 1 Tablet(s) Oral QD take 1 tab po QD #30 refill 5 dx: MDD 12/12/19 22 022 Inactive Abilify 5 mg tablet RxNorm: 740500 Take 1 Tablet(s) Oral QD take 1 tab po QD #30 refill 5 dx: MDD 12/12/19 22 022 Inactive Novolog Flexpen U-100 Insulin aspart 100 unit/mL (3 mL) subcutaneous RxNorm: 8479704 Inject 42 Unit(s) Subcutaneous TID in addition to sliding scale 12/10/19 22 022 Inactive d/c 36u chlorthalidone 25 mg tablet RxNorm: 364362 Take 1 Tablet(s) Oral QAM every morning 12/10/19 22 023 Inactive pregabalin 50 mg capsule RxNorm: 008064 Take 1 Capsule(s) Oral QAM every morning 11/12/19 22 022 Inactive tetanus-diphtheria toxoids-Td 2 Lf unit-2 Lf unit/0.5 mL IM suspension RxNorm: 139 Take 0.5 Miscellaneous Intramuscular 11/12/19 22 022 Inactive need tdap - nursing to administer upon arrival pregabalin 50 mg capsule RxNorm: 995054 Take 1 Capsule(s) Oral QAM every morning 10/16/19 22 022 Inactive pregabalin 50 mg capsule RxNorm: 090273 Take 1 Capsule(s) Oral QAM every morning 10/16/19 22 022 Inactive pregabalin 50 mg capsule RxNorm: 380318 1 Capsule(s) Oral QAM every morning 10/15/19 22 022 Inactive Shingrix (PF) 50 mcg/0.5 mL intramuscular suspension, kit RxNorm: 0592089 Administer 1/2 Milliliter(s) Intramuscular one time Nursing please administer upon arrival and once administered post a bridge message with date of administration, division director, expiration date, and lot# so we can update [facility]. 10/09/19 22 022 Inactive shingrix step 1 Shingrix (PF) 50 mcg/0.5 mL intramuscular suspension, kit RxNorm: 6083649 Administer 1/2 Milliliter(s) Intramuscular one time Nursing please administer upon arrival and once administered post a bridge message with date of administration, division director, expiration date, and lot# so we can update [facility]. 10/09/19 22 Inactive shingrix step 1 cholecalciferol (vitamin D3) 1,250 mcg (50,000 unit) capsule RxNorm: 640996 Take 1 Capsule(s) Oral QW once a [...] aspart 100 unit/mL (3 mL) subcutaneous RxNorm: 6037092 Inject 10 Unit(s) Subcutaneous QHS every night at bedtime with nighttime snack 10/08/19 22 Inactive Shingrix (PF) 50 mcg/0.5 mL intramuscular suspension, kit RxNorm: 9881137 ADMINISTER 2-DOSE SERIES PER CDC GUIDELINES 10/08/19 22 Active Shingrix (PF) 50 mcg/0.5 mL intramuscular suspension, kit RxNorm: 1596542 ADMINISTER 2-DOSE SERIES PER CDC GUIDELINES 10/08/19 22 Inactive Novolog Flexpen U-100 Insulin aspart 100 unit/mL (3 mL) subcutaneous RxNorm: 4486985 Inject 36 Unit(s) Subcutaneous TID in addition to sliding scale 10/08/19 22 Inactive Novofine Autocover 30 gauge x 1/3 needle RxNorm: Use 1 Miscellaneous UD as directed Use 1 needle as directed to administer insulin 5 times a day Dx:E11.42. 10/03/19 22 Inactive ok to substitute with any covered alternative pen needle benzoyl peroxide 10 % topical cleanser RxNorm: 438144 Apply 1 Application Topical QD apply to face, wash rinse and dry once daily (may change to QOD if drying) 08/19/19 22 022 Inactive (%covered by insurance) #60ml refill 11 dx: acne benzoyl peroxide 10 % topical cleanser RxNorm: 094183 Apply 1 Application Topical QD apply to face, wash rinse and dry once daily (may change to QOD if drying) 08/19/19 22 022 Inactive (%covered by insurance) #60ml refill 11 dx: acne benzoyl peroxide 10 % topical cleanser RxNorm: 684734 Apply 1 Application Topical QD apply to face, wash rinse and dry once daily (may change to QOD if drying) 08/19/19 22 022 Inactive (%covered by insurance) #60ml refill 11 dx: acne Lyrica 50 mg capsule RxNorm: 323429 Take 1 Capsule(s) Oral QAM every morning Take 1 capsule by mouth once daily 08/19/19 022 Inactive benzoyl peroxide 10 % topical cleanser RxNorm: 458627 Apply 1 Application Topical QD apply to face, wash rinse and dry once daily (may change to QOD if drying) 08/19/19 22 022 Inactive (%covered by insurance) #60ml refill 11 dx: acne Lyrica 100 mg capsule RxNorm: 144654 Take 1 Capsule(s) Oral QHS every night at bedtime Take 1 capsule by mouth once daily at bedtime 08/19/19 22 022 Inactive Lyrica 100 mg capsule RxNorm: 477870 Take 1 Capsule(s) Oral QHS every night at bedtime Take 1 capsule by mouth once daily at bedtime 08/16/19 022 Inactive Lyrica 50 mg capsule RxNorm: 814013 Take 1 Capsule(s) Oral QAM every morning Take 1 capsule by mouth once daily 08/16/19 22 022 Inactive Levemir FlexTouch U-100 Insulin 100 unit/mL (3 mL) subcutaneous pen RxNorm: 896514 Inject 86 Unit(s) Subcutaneous BID 08/05/19 22 022 Inactive d/c 83units BID Lyrica 100 mg capsule RxNorm: 898955 Take 1 Capsule(s) Oral QHS every night at bedtime Take 1 capsule by mouth once daily at bedtime 07/14/19 22 Inactive Lyrica 50 mg capsule RxNorm: 307709 Take 1 Capsule(s) Oral QAM every morning Take 1 capsule by mouth once daily 07/14/19 22 Inactive Levemir FlexTouch U-100 Insulin 100 unit/mL (3 mL) subcutaneous pen RxNorm: 778345 Inject 83 Unit(s) Subcutaneous BID 07/08/19 22 [...] 30 mg tablet,extended release 24 hr RxNorm: 751031 Take 1 Tablet(s) Oral QD 05/05/20 024 Inactive hydralazine 50 mg tablet RxNorm: 176748 Take 1 Tablet(s) Oral QID 05/05/20 022 Inactive venlafaxine ER 225 mg tablet,extended release 24 hr RxNorm: 627652 Take 1 Tablet(s) Oral QD 05/05/20 021 Inactive venlafaxine ER 225 mg tablet,extended release 24 hr RxNorm: 558048 Take 1 Tablet(s) Oral QD 05/05/20 022 Inactive hydralazine 50 mg tablet RxNorm: 852029 Take 1 Tablet(s) Oral QID 05/05/20 Inactive aspirin 81 mg tablet,delayed release RxNorm: 478482 Take 1 Tablet(s) Oral QD 03/31/20 022 Inactive Zetia 10 mg tablet RxNorm: 214987 Take 1 Tablet(s) Oral QD 03/31/20 024 Inactive Vitamin D2 1,250 mcg (50,000 unit) capsule RxNorm: 4401949 Take 1 Capsule(s) Oral QW once a week x 12 weeks 03/31/20 022 Inactive Vitamin D2 1,250 mcg (50,000 unit) capsule RxNorm: 8391954 Take 1 Capsule(s) Oral QW once a week 03/31/20 021 Inactive Zetia 10 mg tablet RxNorm: 420707 Take 1 Tablet(s) Oral QD 03/31/20 Inactive hydralazine 25 mg tablet RxNorm: 641090 Take 1 Tablet(s) Oral QID 03/31/20 Inactive hydralazine 25 mg tablet RxNorm: 503597 Take 1 Tablet(s) Oral QID 03/31/20 021 Inactive hydralazine 10 mg tablet RxNorm: 869135 Take 1 Tablet(s) Oral QID 03/03/20 021 Inactive cephalexin 500 mg tablet RxNorm: 499965 Take 1 Tablet(s) Oral QID 02/27/20 021 Inactive cephalexin 500 mg tablet RxNorm: 347681 Take 1 Tablet(s) Oral QID 02/27/20 021 Inactive lisinopril 40 mg tablet RxNorm: 129343 Take 1 Tablet(s) Oral QD 02/11/20 023 Inactive Eliquis 5 mg tablet RxNorm: 5715435 Take 1 Tablet(s) Oral BID 01/05/20 21 022 Inactive Eliquis 5 mg tablet RxNorm: 5723317 Take 2 Tablet(s) Oral QD 01/01/20 021 Inactive Lyrica 50 mg capsule RxNorm: 873904 Take 1 Capsule(s) Oral QAM every morning 12/24/19 021 Inactive Lyrica 100 mg capsule RxNorm: 491475 Take 1 Capsule(s) Oral QHS every night at bedtime 12/24/19 021 Inactive clotrimazole 1 % topical cream RxNorm: 093627 Apply to right foot and toes Topical BID 12/04/19 21 023 Inactive metoprolol succinate ER 200 mg tablet,extended release 24 hr RxNorm: 392439 Take 1 Tablet(s) Oral QD 12/04/19 023 Inactive ciprofloxacin 500 mg tablet RxNorm: 215659 Take 1 Tablet(s) Oral QD 11/30/19 21 021 Inactive DX ofloxacin otic drops Accu-Chek Guide test strips RxNorm: USE 1 TO CHECK GLUCOSE 4 TIMES DAILY AND NEEDED 11/15/19 21 023 Inactive Blood Glucose Test strips RxNorm: Use 1 Test Strip QID at PRN 11/05/19 21 023 Inactive E11.42 lisinopril 30 mg tablet RxNorm: 554586 Take 1 Tablet(s) Oral QD 10/30/19 21 021 Inactive lisinopril 20 mg tablet RxNorm: 750725 Take 1 Tablet(s) Oral QD 10/23/19 21 021 Inactive lisinopril 20 mg tablet RxNorm: 273223 Take 1 Tablet(s) Oral QD 10/23/19 21 021 Inactive lisinopril 10 mg tablet RxNorm: 820509 Take 1 Tablet(s) Oral QD 10/02/19 21 021 Inactive icosapent ethyl 1 gram capsule RxNorm: 7310942 Take 2 Capsule(s) (2 gm) Oral BID with meals 09/12/19 024 Inactive Okay to dispense one 2gm tab if you have that available. icosapent ethyl 1 gram capsule RxNorm: 1427962 Take 2 Capsule(s) Oral BID 09/12/19 21 021 Inactive Okay to dispense one 2gm tab if you have that available. amlodipine 10 mg tablet RxNorm: 047738 Take 1 Tablet(s) Oral QD 09/04/19 21 Inactive aspirin 81 mg tablet,delayed release RxNorm: 710555 Take 1 Tablet(s) Oral QD 09/04/19 21 021 Inactive Levemir FlexTouch U-100 Insulin 100 unit/mL (3 mL) subcutaneous pen RxNorm: 966754 Inject 150 Unit(s) Subcutaneous BID 09/04/19 21 Inactive venlafaxine ER 150 mg tablet,extended release 24 hr RxNorm: 802308 Take 1 Tablet(s) Oral QD 09/04/19 21 021 Inactive clotrimazole-betame thasone 1 %-0.05 % topical cream RxNorm: 140631 Apply to rash on red area on left abdomen/chest Topical BID 08/10/19 21 021 Inactive amlodipine 5 mg tablet RxNorm: 489118 Take 1 Tablet(s) Oral QD 07/31/19 21 021 Inactive cephalexin 500 mg tablet RxNorm: 009017 Take 1 Tablet(s) Oral BID BID - Twice Daily 07/31/19 21 021 Inactive Start 08/01/20 pantoprazole 40 mg tablet,delayed release RxNorm: 329515 Take 1 Tablet(s) Oral QAM every morning 07/08/19 21 022 Inactive senna 8.6 mg tablet RxNorm: 044700 Take 1 Tablet(s) Oral QD 07/08/19 022 Inactive carbamazepine 200 mg tablet RxNorm: 679925 Take 1 Tablet(s) Oral BID 07/08/19 21 022 Inactive clopidogrel 75 mg tablet RxNorm: 933462 Take 1 Tablet(s) Oral QD 07/08/19 021 Inactive Blood Glucose Test strips RxNorm: Use 1 Test Strip QID at PRN 07/08/19 21 Inactive E11.42 Novolog Flexpen U-100 Insulin aspart 100 unit/mL (3 mL) subcutaneous RxNorm: 2874528 Administer per sliding scale Milliliter(s) Subcutaneous TID 151-200: 10 u; 201-250: 20 u; 251-300: 30 u; 301-350: 40 u; 351-400: 50 u. 07/08/19 022 Inactive lisinopril 5 mg tablet RxNorm: 034261 Take 1 Tablet(s) Oral QD 07/08/19 021 Inactive Novolog Flexpen U-100 Insulin aspart 100 unit/mL (3 mL) subcutaneous RxNorm: 5966570 Inject 85 Unit(s) Subcutaneous TID 07/08/19 022 Inactive pravastatin 80 mg tablet RxNorm: 046743 Take 1 Tablet(s) Oral QHS every night at bedtime 07/08/19 023 Inactive clotrimazole 1 % topical cream RxNorm: 739591 Apply to bilateral groin areas Topical BID 07/08/19 21 022 Inactive metoprolol succinate ER 200 mg tablet,extended release 24 hr RxNorm: 124729 Take 1 Tablet(s) Oral QD 07/08/19 21 021 Inactive Vitamin D3 25 mcg (1,000 unit) tablet RxNorm: 797321 Take 1 Tablet(s) Oral QD 07/08/19 21 021 Inactive isosorbide dinitrate 30 mg tablet RxNorm: 074248 Take 1 Tablet(s) Oral QD 07/08/19 21 021 Inactive Levemir FlexTouch U-100 Insulin 100 unit/mL (3 mL) subcutaneous pen RxNorm: 951862 Inject 140 Unit(s) Subcutaneous BID 07/08/19 21 021 Inactive torsemide 20 mg tablet RxNorm: 687142 Take 1 Tablet(s) Oral QD 07/08/19 21 023 Inactive venlafaxine 75 mg tablet RxNorm: 293394 Take 1 Tablet(s) Oral QD 07/08/19 021 Inactive acetaminophen 500 mg tablet RxNorm: 931277 Take 1 Tablet(s) Oral TID as needed for headache 06/18/19 21 021 Inactive acetaminophen 500 mg tablet RxNorm: 193004 Take 1 Tablet(s) Oral TID as needed for headache 06/18/19 021 Inactive Lyrica 100 mg capsule RxNorm: 668200 Take 1 Capsule(s) Oral QHS every night at bedtime 06/11/19 21 021 Inactive Lyrica 50 mg capsule RxNorm: 976356 Take 1 Capsule(s) Oral QAM every morning 06/10/19 21 021 Inactive hydrocortisone 2.5 % topical cream RxNorm: 191272 Apply to bilateral groin creases Topical BID 05/15/20 20 021 Inactive clotrimazole 1 % topical cream RxNorm: 991666 Apply to bilateral groin areas Topical BID 05/15/20 20 021 Inactive Lyrica 50 mg capsule RxNorm: 156225 Take 1 Capsule(s) Oral QAM every morning 05/14/20 20 020 Inactive Lyrica 100 mg capsule RxNorm: 795592 Take 1 Capsule(s) Oral QHS every night [...] Inactive Nystop 100,000 unit/gram topical powder RxNorm: 252057 Apply to abd folds, under breasts and L side of groin Topical BID x 14 days, then BID PRN 04/08/20 20 Inactive dx: yeast dermatitis Lyrica 100 mg capsule RxNorm: 887807 Take 1 Capsule(s) Oral QHS every night at bedtime 03/13/20 20 Inactive Lyrica 50 mg capsule RxNorm: 941119 Take 1 Capsule(s) Oral QAM every morning 03/13/20 20 Inactive ketoconazole 2 % shampoo RxNorm: 717006 Apply Topical two times a week with showers 03/11/20 20 Inactive cholecalciferol (vitamin D3) 50 mcg (2,000 unit) tablet RxNorm: 851531 Take 1 Tablet(s) Oral QD 03/11/20 20 Inactive Zetia 10 mg tablet RxNorm: 055232 Take 1 Tablet(s) Oral QD 03/07/20 20 021 Inactive Zetia 10 mg tablet RxNorm: 752482 Take 1 Tablet(s) Oral QD 03/07/20 20 Inactive Lyrica 50 mg capsule RxNorm: 533494 Take 1 Capsule(s) Oral QAM every morning 02/15/20 20 Inactive Lyrica 100 mg capsule RxNorm: 042272 Take 1 Capsule(s) Oral QHS every night at bedtime 02/15/20 20 Inactive Lyrica 100 mg capsule RxNorm: 446996 Take 1 Capsule(s) Oral QHS every night at bedtime 02/15/20 20 Inactive Lyrica 50 mg capsule RxNorm: 174516 Take 1 Capsule(s) Oral QAM every morning 02/15/20 20 020 Inactive polyethylene glycol 3350 17 gram/dose oral powder RxNorm: 314952 Take 17=1 capful Gram(s) Oral BID as needed mix with 4-8oz of liquid 06/12/19 22 024 Inactive metoprolol succinate ER 200 mg tablet,extended release 24 hr RxNorm: 387810 Take 1 Tablet(s) Oral QD 08/12/19 23 Active loperamide 2 mg capsule RxNorm: 268638 Take 1 Capsule(s) Oral QID as needed 06/12/19 22 Active hydralazine 50 mg tablet RxNorm: 983602 Take 1 Tablet(s) Oral QID 08/12/19 23 Active venlafaxine ER 75 mg capsule,extended release 24 hr RxNorm: 413662 Take 3 Capsule(s) Oral QD 06/12/19 22 023 Inactive icosapent ethyl 1 gram capsule RxNorm: 7424674 Take 2 Capsule(s) (2 gm) Oral BID with meals 10/07/19 23 023 Inactive Okay to dispense one 2gm tab if you have that available. Levemir FlexTouch U-100 Insulin 100 unit/mL (3 mL) subcutaneous pen RxNorm: 115757 Inject 80 Unit(s) Subcutaneous BID 07/14/19 23 023 Inactive Novolog Flexpen U-100 Insulin aspart 100 unit/mL (3 mL) subcutaneous RxNorm: 1350354 Insert 30 Unit(s) Subcutaneous TID with meals 10/08/19 22 022 Inactive Medication Administered No Medication Administered data Vital Signs Date Vital 04/14/2023 Height: 5'5 Code: 8302-2 Weight : Code: 3141-9 Reason For Visit No Reason For Visit data Encounters Encounter Performer Location Location Address Codes [place]iano e ([id number]) Home or Residence Visit Est Pt - Moderate Level, 40 mins Diagnosis: Coronary artery disease involving [place] coronary artery of [place] heart, angina presence unspecified[ICD10 : I25.10] Diagnosis: Type 2 diabetes mellitus with diabetic polyneuropathy, with long-term current use of insulin[ICD10: E11.42] Diagnosis: Reducible umbilical hernia[ICD10: K42.9] Diagnosis: Onychogryposis[IC D10: L60.2] Chelo Fonseca [address] [place] [address] [id number] [address] [place] [id number] CPT-4: 62720 04/14/2023 Plan of Care Planned Activity Notes Codes Status Date Patient Education: Patient Medication Summary Completed 04/14/2023 Patient Education: Influenza Complet ed 04/14/2023 Appointment: Sandra Clark WPtel: [address] [facility] [address] [id number] Telehealth Psych Follow Up 12/09 Appointment: Tapan Shirley WPtel: [address] [facility] 300 [id number] [facility] 10/26/2022 Referral: [facility] WPtel: [address], [address] [id number] Referral Records Received 09/21/2022 Appointment: Tapan Shirley WPtel: [address] [facility] 300 [id number] [place] F/U 08/11/2022 Appointment: Tapan Shirley WPtel: [address] [facility] 300 [id number] [place] F/U 07/14/2022 Appointment: Tapan Shirley WPtel: [address] [facility] 300 [id number] [place] F/U 02/10/2022 Referral: [facility] WPtel: [address] [id number] [place] Referral Completed 05/28/2021 Referral: General Cardiology Referral Complet ed 01/03/2021 Referral: General Psychologist Referral Close d Referral: General Psychiatrist Referral Patient/Family Scheduling Appointment Instructions Comment Date Leonid is a?? Male being seen living at [facility]. Initial BPS visit 01/2020. PMHx including DMII, CAD w/ 5 stents, Depression, Seizure Disorder and CKD stage 3. He moved into [facility] in 12/2019 but after a hospitalization 05/2021 he moved to the [facility] to have closer nursing attention.??Sister Jyotsna involved in his care cell# [phone]??Guardian: Giulia (tapan met in person 09/01/21), now [...] Levemir 30U BID HLD: Notable elevations. Trigs 27471 (Feb 2023) >> 1416 (Mar 2023); Non-HDL 219 >> 151.?? Again discussed dangers of severely elevated lipids [...] Zetia 10mg QD Coronary artery disease involving [place] coronary artery of [place] heart, angina presence unspecified Keep follow up cardiology for May as scheduled. Stable cardiopulmonary symptoms today. No acute concerns.?? Reducible umbilical hernia Has had for years- [...]
--- OUTSIDE RECORDS SUMMARY | 2023-11-06 05:50 | XMS_ITS | CCD ---
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 WOOD-[facility] Chronic [facility] Management U navailable Summary Purpose DataExchange Insurance Providers Payer name Policy type / Coverage type Covered libertarian ID Effective Begin Date Effective End Date [place] Part B [id number] Unknown Unknown Medicaid [place] Medicare Part B [id number] Unknown Unknown Family history Sister Brittany Suggs [...] [facility] 09/03/[address]: 6094809 Non-Smoker / No History of Smoking 09/02/[address]: 950920854 No Alcohol Consum ption 09/02/2020 Allergies, Adverse Reactions, Alerts Substance Reaction Codes Entered Date Inactivated Date Status LISINOPRIL RxNorm: 93977 02/12/2020 No Inactive Da te Active Metformin [...] 05/04/2023 Active 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 ICD-10: Z79.4 [...] Instructions bisacodyl 10 mg rectal suppository RxNorm: 101140 Insert one suppository per rectum once daily as needed for constipation 06/15/19 24 024 Inactive bisacodyl 10 mg rectal suppository RxNorm: 264435 Insert one suppository per rectum once daily as needed for constipation 06/15/19 24 024 Inactive pregabalin 100 mg capsule RxNorm: 962491 Take 1 Capsule(s) Oral QAM every morning 04/27/20 024 Inactive Levemir FlexPen 100 unit/mL (3 mL) solution subcutaneous insulin pen RxNorm: 781458 Inject 30 Unit(s) Subcutaneous BID 04/27/20 23 024 Inactive rosuvastatin 40 mg tablet RxNorm: 043964 Take 1 Tablet(s) Oral QPM every evening 04/16/20 024 Inactive D/C rosuvastatin 20mg venlafaxine ER 75 mg capsule,extended release 24 hr RxNorm: 740244 Take 3 Capsule(s) Oral QD 04/14/20 023 Inactive pregabalin 100 mg capsule RxNorm: 771111 Take 1 Capsule(s) Oral QAM every morning [...] meter clotrimazole 1 % topical cream RxNorm: 207808 Take apply topically to abdominal folds twice daily for 14 days 03/12/20 024 Inactive Ozempic 1 mg/dose (4 mg/3 mL) subcutaneous pen injector RxNorm: 8223529 Inject 1 Milligram(s) Subcutaneous QW once a week 03/11/20 23 023 Inactive rosuvastatin 20 mg tablet RxNorm: 546927 Take 1 Tablet(s) Oral QD 02/26/20 23 023 Inactive d/c pravastatin 80mg Ozempic 1 mg/dose (4 mg/3 mL) subcutaneous pen injector RxNorm: 5948392 Inject 1 Milligram(s) Subcutaneous QW once a week 02/20/20 023 Inactive pregabalin 150 mg capsule RxNorm: 484118 Take 1 Capsule(s) Oral HS at bed time 02/19/20 023 Inactive pregabalin 100 mg capsule RxNorm: 621345 Take 1 Capsule(s) Oral QAM every morning 02/18/20 023 Inactive FreeStyle Chema 2 Sensor kit RxNorm: use as directed 02/04/20 23 024 Inactive venlafaxine ER 75 mg capsule,extended release 24 hr RxNorm: 845737 Take 3 Capsule(s) Oral QD 02/04/20 023 Inactive FreeStyle Chema 2 Sensor kit RxNorm: use as directed 02/04/20 23 023 Inactive fluconazole 150 mg tablet RxNorm: 602897 Take 1 Tablet(s) Oral on day 3 and on day 6 02/03/20 23 024 Active chlorthalidone 25 mg tablet RxNorm: 053882 Take 1 Tablet(s) Oral QAM every morning 02/03/20 23 No Stop Date Active venlafaxine ER 150 mg capsule,extended release 24 hr RxNorm: 361482 Take 1 Capsule(s) Oral QD 02/03/20 23 023 Inactive acetaminophen 500 mg tablet RxNorm: 511297 1 TABLET ORALLY 3 TIMES DAILY (MAX APAP:4GM/24HR) 12/15/19 23 023 Inactive potassium chloride ER 20 mEq tablet,extended release RxNorm: 335152 Take 1 Tablet(s) Oral BID 12/09/19 23 024 Inactive d/c 20mEq once daily (sent from hospital) clotrimazole 1 % topical cream RxNorm: 345999 apply 1g topically to top of feet and in between toes BID 12/09/19 23 023 Inactive nystatin 100,000 unit/gram topical powder RxNorm: 696458 APPLY TO AFFECTED AREAS TOPICALLY 2 TIMES DAILY 11/21/19 024 Inactive Nystop 100,000 unit/gram topical powder RxNorm: 345255 Apply to abd folds, under breasts and L side of groin Topical BID x 14 days, then BID PRN 11/20/19 023 Inactive dx: yeast dermatitis [place] Ultra Strength 4 %-30 %-10 % topical cream RxNorm: 544373 Apply 1 Gram(s) Topical QID PRN to feet and legs for neuropathic pain 11/11/19 024 Active hydrocortisone 2.5 % topical cream RxNorm: 672619 Apply 1/2 Gram(s) Topical BID as needed 11/10/19 024 Inactive clotrimazole 1 % topical cream RxNorm: 891067 Apply 1/2 Gram(s) Topical BID Apply to affected areas of groin, periarea, and abdominal topically 2 times daily 11/10/19 023 Inactive Humulin R U-500 (Concentrated) Insulin 500 unit/mL subcutaneous soln RxNorm: 546206 Inject 100 Unit(s) Subcutaneous TID 10/07/19 024 Inactive Ozempic 0.25 mg or 0.5 mg (2 mg/3 mL) subcutaneous pen injector RxNorm: 0548696 Inject 1/2 Milligram(s) Subcutaneous QW once a week 10/07/19 024 Inactive Levemir FlexPen 100 unit/mL (3 mL) solution subcutaneous insulin pen RxNorm: 361323 Inject 30 Unit(s) Subcutaneous BID 10/07/19 23 023 Inactive aripiprazole 15 mg tablet RxNorm: 895404 1/2 TAB (7.5MG) ORALLY DAILY (DX:MAJOR DEPRESSIVE DISORDER) 09/23/19 23 023 Inactive Lancets,Thin 28 gauge RxNorm: Use 1 as directed QID 09/15/19 23 024 Inactive Accu-Chek Guide test strips RxNorm: Use 1 Test Strip QID 09/15/19 23 023 Inactive ok to substitute with any covered alternative test strip torsemide 20 mg tablet RxNorm: 822341 Take 1 Tablet(s) Oral BID 09/09/19 23 024 Inactive d/c once daily dosing carvedilol 25 mg tablet RxNorm: 140388 Take 1 Tablet(s) Oral QD 08/25/19 23 024 Inactive pregabalin 150 mg capsule RxNorm: 877508 1 Capsule(s) Oral HS at bed time 08/18/19 23 023 Inactive pregabalin 100 mg capsule RxNorm: 352239 1 Capsule(s) Oral QAM every morning 08/18/19 23 023 Inactive carvedilol 25 mg tablet RxNorm: 442400 1 Tablet(s) Oral QD 07/28/19 23 023 Inactive lisinopril 20 mg tablet RxNorm: 942836 Give 1 Tablet(s) Oral QD 07/28/19 23 023 Inactive Lyrica 150 mg capsule RxNorm: 124174 Take 1 Capsule(s) Oral QHS every night at bedtime 07/19/19 23 023 Inactive d/c 100mg dose Diflucan 150 mg tablet RxNorm: 912405 Take 1 Tablet(s) Oral QD repeat on day 3 and 6 07/19/19 23 023 Inactive pregabalin 100 mg capsule RxNorm: 018883 Take 1 Capsule(s) Oral QAM every morning 07/19/19 23 023 Inactive gatifloxacin 0.5 % eye drops RxNorm: 154207 Instill 1 Drop(s) as directed TID Instill 1 drop in to affected eye(s) starting 1 day prior to surgery and continue until gone (do not exceed 4 weeks). 07/13/19 23 023 Inactive carvedilol 25 mg tablet RxNorm: 278934 2 Tablet(s) Oral BID 07/13/19 23 023 Inactive Humulin R Regular U-100 Insulin 100 unit/mL injection solution RxNorm: 016961 85 Unit(s) Injection TID 07/13/19 23 023 Inactive ketorolac 0.5 % eye drops RxNorm: 498380 Instill 1 Drop(s) as directed QID Instill 1 drop into affected eye(s) 4 times daily starting 1 day prior to surgery and continue until gone (do not exceed 4 weeks). 07/13/19 23 023 Inactive Diflucan 150 mg tablet RxNorm: 607514 Take 1 Tablet(s) Oral QD repeat on day 3 and 6 06/30/19 23 023 Inactive Accu-Chek Guide test strips RxNorm: Use 1 Test Strip QID Use 1 test strip to monitor blood glucose 4 times daily and as needed. Dx:E11.42. 06/23/19 023 Inactive ok to substitute with any covered alternative test strip dextromethorphan-gu aifenesin 10 mg-100 mg/5 mL oral liquid RxNorm: 154582 Take 10 Milliliter(s) Oral every 4 hours as needed for cough 06/19/19 023 Inactive dextromethorphan-gu aifenesin 10 mg-100 mg/5 mL oral liquid RxNorm: 839589 Take 10 Milliliter(s) Oral every 4 hours as needed for cough 06/19/19 023 Inactive Lyrica 150 mg capsule RxNorm: 413720 Take 1 Capsule(s) Oral QHS every night at bedtime 06/18/19 023 Inactive d/c 100mg dose aripiprazole 15 mg tablet RxNorm: 634373 1/2 TAB (7.5MG) ORALLY DAILY (DX:MAJOR DEPRESSIVE DISORDER) 06/05/19 23 023 Inactive pregabalin 100 mg capsule RxNorm: 813900 1 Capsule(s) Oral QAM every morning 06/02/19 23 023 Inactive Banophen 50 mg capsule RxNorm: 2635006 Take 1 Capsule(s) Oral Q6H every 6 hours as needed 05/19/19 23 No Stop Date Active Novolog Flexpen U-100 Insulin aspart 100 unit/mL (3 mL) subcutaneous RxNorm: 6163954 Inject 10 Unit(s) Subcutaneous QHS every night at bedtime with nighttime snack 04/08/20 22 022 Inactive Novolog Flexpen U-100 Insulin aspart 100 unit/mL (3 mL) subcutaneous RxNorm: 8329854 Inject 42 Unit(s) Subcutaneous TID in addition to sliding scale 04/08/20 022 Inactive d/c 36u albuterol sulfate HFA 90 mcg/actuation aerosol inhaler RxNorm: 3039466 Take 2 Puff(s) Inhalation Q4H every four hours as needed as needed for SOB, cough, or wheezing 04/07/20 030 Active Banophen 50 mg capsule RxNorm: 2123077 Take 1 Capsule(s) Oral Q6H every 6 hours as needed 04/06/20 023 Inactive diphenhydramine 50 mg tablet RxNorm: 8161792 Take 1 Tablet(s) Oral Q6H every 6 hours as needed 04/06/20 022 Inactive diphenhydramine 50 mg tablet RxNorm: 7436752 1 Tablet(s) Oral Q6H every 6 hours as needed 04/06/20 022 Inactive Abilify 15 mg tablet RxNorm: 343868 1/2 Tablet(s) Oral QD 03/10/20 023 Inactive Shingrix (PF) 50 mcg/0.5 mL intramuscular suspension, kit RxNorm: 6580110 Administer 1/2 Milliliter(s) Intramuscular QD one time shingrix step 2 ( step 1 given 11/04/21) WITH needle - Nursing please administer upon arrival and once administered post a bridge message 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, 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, expiration date, and lot# so we can update [facility] 02/18/20 22 022 Inactive dispense with needle Shingrix (PF) 50 mcg/0.5 mL intramuscular suspension, kit RxNorm: 5830073 Administer 1/2 Milliliter(s) Intramuscular QD one time shingrix step 2 ( step 1 given 11/04/21) WITH needle - Nursing please administer upon arrival and once administered post a bridge message with date of administration, 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, expiration date, and lot# so we can update [facility] 02/18/20 22 022 Inactive dispense with needle polyethylene glycol 3350 17 gram/dose oral powder RxNorm: 789313 Take 17=1 capful Gram(s) Oral QD mix with 4-8oz of liquid 01/08/20 22 023 Inactive take this in addition to BID prn order Lyrica 100 mg capsule RxNorm: 279709 Take 1 Capsule(s) Oral QAM every morning 01/08/20 22 022 Inactive d/c 50mg dose acetaminophen 500 mg tablet RxNorm: 608791 Take 1 Tablet(s) Oral TID 01/08/20 22 022 Inactive d/c PRN order Lyrica 150 mg capsule RxNorm: 205424 Take 1 Capsule(s) Oral QHS every night at bedtime 01/08/20 22 023 Inactive d/c 100mg dose Abilify 5 mg tablet RxNorm: 632510 Take 1 Tablet(s) Oral QD take 1 tab po QD #30 refill 5 dx: MDD 12/12/19 22 022 Inactive Abilify 5 mg tablet RxNorm: 252709 Take 1 Tablet(s) Oral QD take 1 tab po QD #30 refill 5 dx: MDD 12/12/19 22 022 Inactive Novolog Flexpen U-100 Insulin aspart 100 unit/mL (3 mL) subcutaneous RxNorm: 9375790 Inject 42 Unit(s) Subcutaneous TID in addition to sliding scale 12/10/19 22 Inactive d/c 36u chlorthalidone 25 mg tablet RxNorm: 559500 Take 1 Tablet(s) Oral QAM every morning 12/10/19 22 023 Inactive pregabalin 50 mg capsule RxNorm: 550313 Take 1 Capsule(s) Oral QAM every morning 11/12/19 22 022 Inactive tetanus-diphtheria toxoids-Td 2 Lf unit-2 Lf unit/0.5 mL IM suspension RxNorm: 139 Take 0.5 Miscellaneous Intramuscular 11/12/19 22 022 Inactive need tdap - nursing to administer upon arrival pregabalin 50 mg capsule RxNorm: 675124 Take 1 Capsule(s) Oral QAM every morning 10/16/19 22 022 Inactive pregabalin 50 mg capsule RxNorm: 065399 Take 1 Capsule(s) Oral QAM every morning 10/16/19 22 022 Inactive pregabalin 50 mg capsule RxNorm: 743026 1 Capsule(s) Oral QAM every morning 10/15/19 22 Inactive Shingrix (PF) 50 mcg/0.5 mL intramuscular suspension, kit RxNorm: 0468384 Administer 1/2 Milliliter(s) Intramuscular one time Nursing please administer upon arrival and once administered post a bridge message with date of administration, 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, expiration date, and lot# so we can update [facility]. 10/09/19 22 022 Inactive shingrix step 1 Shingrix (PF) 50 mcg/0.5 mL intramuscular suspension, kit RxNorm: 7673093 Administer 1/2 Milliliter(s) Intramuscular one time Nursing please administer upon arrival and once administered post a bridge message with date of administration, 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, expiration date, and lot# so we can update [facility]. 10/09/19 22 022 Inactive shingrix step 1 cholecalciferol (vitamin D3) 1,250 mcg (50,000 unit) capsule RxNorm: 838995 Take 1 Capsule(s) Oral QW once a [...] aspart 100 unit/mL (3 mL) subcutaneous RxNorm: 3952428 Inject 10 Unit(s) Subcutaneous QHS every night at bedtime with nighttime snack 10/08/19 22 Inactive Shingrix (PF) 50 mcg/0.5 mL intramuscular suspension, kit RxNorm: 4080832 ADMINISTER 2-DOSE SERIES PER CDC GUIDELINES 10/08/19 22 022 Active Shingrix (PF) 50 mcg/0.5 mL intramuscular suspension, kit RxNorm: 0313958 ADMINISTER 2-DOSE SERIES PER CDC GUIDELINES 10/08/19 Inactive Novolog Flexpen U-100 Insulin aspart 100 unit/mL (3 mL) subcutaneous RxNorm: 7230803 Inject 36 Unit(s) Subcutaneous TID in addition to sliding scale 10/08/19 Inactive Novofine Autocover 30 gauge x 1/3 needle RxNorm: Use 1 Miscellaneous UD as directed Use 1 needle as directed to administer insulin 5 times a day Dx:E11.42. 10/03/19 Inactive ok to substitute with any covered alternative pen needle benzoyl peroxide 10 % topical cleanser RxNorm: 636942 Apply 1 Application Topical QD apply to face, wash rinse and dry once daily (may change to QOD if drying) 08/19/19 022 Inactive (%covered by insurance) #60ml refill 11 dx: acne benzoyl peroxide 10 % topical cleanser RxNorm: 002310 Apply 1 Application Topical QD apply to face, wash rinse and dry once daily (may change to QOD if drying) 08/19/19 022 Inactive (%covered by insurance) #60ml refill 11 dx: acne benzoyl peroxide 10 % topical cleanser RxNorm: 083604 Apply 1 Application Topical QD apply to face, wash rinse and dry once daily (may change to QOD if drying) 08/19/19 022 Inactive (%covered by insurance) #60ml refill 11 dx: acne Lyrica 50 mg capsule RxNorm: 011291 Take 1 Capsule(s) Oral QAM every morning Take 1 capsule by mouth once daily 08/19/19 22 022 Inactive benzoyl peroxide 10 % topical cleanser RxNorm: 074109 Apply 1 Application Topical QD apply to face, wash rinse and dry once daily (may change to QOD if drying) 08/19/19 022 Inactive (%covered by insurance) #60ml refill 11 dx: acne Lyrica 100 mg capsule RxNorm: 452820 Take 1 Capsule(s) Oral QHS every night at bedtime Take 1 capsule by mouth once daily at bedtime 08/19/19 22 Inactive Lyrica 100 mg capsule RxNorm: 816702 Take 1 Capsule(s) Oral QHS every night at bedtime Take 1 capsule by mouth once daily at bedtime 08/16/19 22 022 Inactive Lyrica 50 mg capsule RxNorm: 409899 Take 1 Capsule(s) Oral QAM every morning Take 1 capsule by mouth once daily 08/16/19 22 022 Inactive Levemir FlexTouch U-100 Insulin 100 unit/mL (3 mL) subcutaneous pen RxNorm: 872558 Inject 86 Unit(s) Subcutaneous BID 08/05/19 22 022 Inactive d/c 83units BID Lyrica 100 mg capsule RxNorm: 829710 Take 1 Capsule(s) Oral QHS every night at bedtime Take 1 capsule by mouth once daily at bedtime 07/14/19 22 022 Inactive Lyrica 50 mg capsule RxNorm: 530085 Take 1 Capsule(s) Oral QAM every morning Take 1 capsule by mouth once daily 07/14/19 22 022 Inactive Levemir FlexTouch U-100 Insulin 100 unit/mL (3 mL) subcutaneous pen RxNorm: 102945 Inject 83 Unit(s) Subcutaneous BID 07/08/19 22 [...] 30 mg tablet,extended release 24 hr RxNorm: 313866 Take 1 Tablet(s) Oral QD 05/05/20 21 024 Inactive hydralazine 50 mg tablet RxNorm: 634984 Take 1 Tablet(s) Oral QID 05/05/20 21 022 Inactive venlafaxine ER 225 mg tablet,extended release 24 hr RxNorm: 989856 Take 1 Tablet(s) Oral QD 05/05/20 21 021 Inactive venlafaxine ER 225 mg tablet,extended release 24 hr RxNorm: 469498 Take 1 Tablet(s) Oral QD 05/05/20 21 022 Inactive hydralazine 50 mg tablet RxNorm: 327417 Take 1 Tablet(s) Oral QID 05/05/20 21 021 Inactive aspirin 81 mg tablet,delayed release RxNorm: 563973 Take 1 Tablet(s) Oral QD 03/31/20 21 022 Inactive Zetia 10 mg tablet RxNorm: 361631 Take 1 Tablet(s) Oral QD 03/31/20 21 024 Inactive Vitamin D2 1,250 mcg (50,000 unit) capsule RxNorm: 6357678 Take 1 Capsule(s) Oral QW once a week x 12 weeks 03/31/20 21 022 Inactive Vitamin D2 1,250 mcg (50,000 unit) capsule RxNorm: 6645355 Take 1 Capsule(s) Oral QW once a week 03/31/20 021 Inactive Zetia 10 mg tablet RxNorm: 840930 Take 1 Tablet(s) Oral QD 03/31/20 Inactive hydralazine 25 mg tablet RxNorm: 707233 Take 1 Tablet(s) Oral QID 03/31/20 021 Inactive hydralazine 25 mg tablet RxNorm: 136740 Take 1 Tablet(s) Oral QID 03/31/20 021 Inactive hydralazine 10 mg tablet RxNorm: 994397 Take 1 Tablet(s) Oral QID 03/03/20 021 Inactive cephalexin 500 mg tablet RxNorm: 152124 Take 1 Tablet(s) Oral QID 02/27/20 021 Inactive cephalexin 500 mg tablet RxNorm: 956296 Take 1 Tablet(s) Oral QID 02/27/20 021 Inactive lisinopril 40 mg tablet RxNorm: 399707 Take 1 Tablet(s) Oral QD 02/11/20 023 Inactive Eliquis 5 mg tablet RxNorm: 7019855 Take 1 Tablet(s) Oral BID 01/05/20 022 Inactive Eliquis 5 mg tablet RxNorm: 6840149 Take 2 Tablet(s) Oral QD 01/01/20 021 Inactive Lyrica 50 mg capsule RxNorm: 920373 Take 1 Capsule(s) Oral QAM every morning 12/24/19 021 Inactive Lyrica 100 mg capsule RxNorm: 425269 Take 1 Capsule(s) Oral QHS every night at bedtime 12/24/19 021 Inactive clotrimazole 1 % topical cream RxNorm: 777268 Apply to right foot and toes Topical BID 12/04/19 21 023 Inactive metoprolol succinate ER 200 mg tablet,extended release 24 hr RxNorm: 968721 Take 1 Tablet(s) Oral QD 12/04/19 21 023 Inactive ciprofloxacin 500 mg tablet RxNorm: 155233 Take 1 Tablet(s) Oral QD 11/30/19 21 021 Inactive DX ofloxacin otic drops Accu-Chek Guide test strips RxNorm: USE 1 TO CHECK GLUCOSE 4 TIMES DAILY AND NEEDED 11/15/19 21 023 Inactive Blood Glucose Test strips RxNorm: Use 1 Test Strip QID at PRN 11/05/19 21 023 Inactive E11.42 lisinopril 30 mg tablet RxNorm: 130102 Take 1 Tablet(s) Oral QD 10/30/19 021 Inactive lisinopril 20 mg tablet RxNorm: 898696 Take 1 Tablet(s) Oral QD 10/23/19 21 021 Inactive lisinopril 20 mg tablet RxNorm: 393132 Take 1 Tablet(s) Oral QD 10/23/19 21 021 Inactive lisinopril 10 mg tablet RxNorm: 815401 Take 1 Tablet(s) Oral QD 10/02/19 021 Inactive icosapent ethyl 1 gram capsule RxNorm: 2337672 Take 2 Capsule(s) (2 gm) Oral BID with meals 09/12/19 21 024 Inactive Okay to dispense one 2gm tab if you have that available. icosapent ethyl 1 gram capsule RxNorm: 4355555 Take 2 Capsule(s) Oral BID 09/12/19 21 021 Inactive Okay to dispense one 2gm tab if you have that available. amlodipine 10 mg tablet RxNorm: 201895 Take 1 Tablet(s) Oral QD 09/04/19 21 022 Inactive aspirin 81 mg tablet,delayed release RxNorm: 949017 Take 1 Tablet(s) Oral QD 09/04/19 21 021 Inactive Levemir FlexTouch U-100 Insulin 100 unit/mL (3 mL) subcutaneous pen RxNorm: 240848 Inject 150 Unit(s) Subcutaneous BID 09/04/19 21 022 Inactive venlafaxine ER 150 mg tablet,extended release 24 hr RxNorm: 633777 Take 1 Tablet(s) Oral QD 09/04/19 21 021 Inactive clotrimazole-betame thasone 1 %-0.05 % topical cream RxNorm: 483964 Apply to rash on red area on left abdomen/chest Topical BID 08/10/19 21 Inactive amlodipine 5 mg tablet RxNorm: 286433 Take 1 Tablet(s) Oral QD 07/31/19 21 Inactive cephalexin 500 mg tablet RxNorm: 142489 Take 1 Tablet(s) Oral BID BID - Twice Daily 07/31/19 Inactive Start 08/01/20 pantoprazole 40 mg tablet,delayed release RxNorm: 156592 Take 1 Tablet(s) Oral QAM every morning 07/08/19 Inactive senna 8.6 mg tablet RxNorm: 649451 Take 1 Tablet(s) Oral QD 07/08/19 Inactive carbamazepine 200 mg tablet RxNorm: 377996 Take 1 Tablet(s) Oral BID 07/08/19 Inactive clopidogrel 75 mg tablet RxNorm: 391952 Take 1 Tablet(s) Oral QD 07/08/19 021 Inactive Blood Glucose Test strips RxNorm: Use 1 Test Strip QID at PRN 07/08/19 Inactive E11.42 Novolog Flexpen U-100 Insulin aspart 100 unit/mL (3 mL) subcutaneous RxNorm: 4212425 Administer per sliding scale Milliliter(s) Subcutaneous TID 151-200: 10 u; 201-250: 20 u; 251-300: 30 u; 301-350: 40 u; 351-400: 50 u. 07/08/19 022 Inactive lisinopril 5 mg tablet RxNorm: 522138 Take 1 Tablet(s) Oral QD 07/08/19 021 Inactive Novolog Flexpen U-100 Insulin aspart 100 unit/mL (3 mL) subcutaneous RxNorm: 4333371 Inject 85 Unit(s) Subcutaneous TID 07/08/19 022 Inactive pravastatin 80 mg tablet RxNorm: 025193 Take 1 Tablet(s) Oral QHS every night at bedtime 07/08/19 023 Inactive clotrimazole 1 % topical cream RxNorm: 790923 Apply to bilateral groin areas Topical BID 07/08/19 022 Inactive metoprolol succinate ER 200 mg tablet,extended release 24 hr RxNorm: 046790 Take 1 Tablet(s) Oral QD 07/08/19 021 Inactive Vitamin D3 25 mcg (1,000 unit) tablet RxNorm: 815666 Take 1 Tablet(s) Oral QD 07/08/19 021 Inactive isosorbide dinitrate 30 mg tablet RxNorm: 453948 Take 1 Tablet(s) Oral QD 07/08/19 021 Inactive Levemir FlexTouch U-100 Insulin 100 unit/mL (3 mL) subcutaneous pen RxNorm: 858408 Inject 140 Unit(s) Subcutaneous BID 07/08/19 021 Inactive torsemide 20 mg tablet RxNorm: 485312 Take 1 Tablet(s) Oral QD 07/08/19 023 Inactive venlafaxine 75 mg tablet RxNorm: 043941 Take 1 Tablet(s) Oral QD 07/08/19 021 Inactive acetaminophen 500 mg tablet RxNorm: 685933 Take 1 Tablet(s) Oral TID as needed for headache 06/18/19 021 Inactive acetaminophen 500 mg tablet RxNorm: 670092 Take 1 Tablet(s) Oral TID as needed for headache 06/18/19 021 Inactive Lyrica 100 mg capsule RxNorm: 255810 Take 1 Capsule(s) Oral QHS every night at bedtime 06/11/19 021 Inactive Lyrica 50 mg capsule RxNorm: 939892 Take 1 Capsule(s) Oral QAM every morning 06/10/19 21 021 Inactive hydrocortisone 2.5 % topical cream RxNorm: 839264 Apply to bilateral groin creases Topical BID 05/15/20 20 021 Inactive clotrimazole 1 % topical cream RxNorm: 663429 Apply to bilateral groin areas Topical BID 05/15/20 20 021 Inactive Lyrica 50 mg capsule RxNorm: 747114 Take 1 Capsule(s) Oral QAM every morning 05/14/20 20 Inactive Lyrica 100 mg capsule RxNorm: 553312 Take 1 Capsule(s) Oral QHS every night [...] Inactive Nystop 100,000 unit/gram topical powder RxNorm: 092677 Apply to abd folds, under breasts and L side of groin Topical BID x 14 days, then BID PRN 04/08/20 20 Inactive dx: yeast dermatitis Lyrica 100 mg capsule RxNorm: 359297 Take 1 Capsule(s) Oral QHS every night at bedtime 03/13/20 20 Inactive Lyrica 50 mg capsule RxNorm: 831011 Take 1 Capsule(s) Oral QAM every morning 03/13/20 20 Inactive ketoconazole 2 % shampoo RxNorm: 156644 Apply Topical two times a week with showers 03/11/20 20 Inactive cholecalciferol (vitamin D3) 50 mcg (2,000 unit) tablet RxNorm: 400656 Take 1 Tablet(s) Oral QD 03/11/20 20 021 Inactive Zetia 10 mg tablet RxNorm: 612452 Take 1 Tablet(s) Oral QD 03/07/20 20 021 Inactive Zetia 10 mg tablet RxNorm: 229187 Take 1 Tablet(s) Oral QD 03/07/20 20 Inactive Lyrica 50 mg capsule RxNorm: 610959 Take 1 Capsule(s) Oral QAM every morning 02/15/20 20 Inactive Lyrica 100 mg capsule RxNorm: 533393 Take 1 Capsule(s) Oral QHS every night at bedtime 02/15/20 20 Inactive Lyrica 100 mg capsule RxNorm: 703545 Take 1 Capsule(s) Oral QHS every night at bedtime 02/15/20 20 Inactive Lyrica 50 mg capsule RxNorm: 639265 Take 1 Capsule(s) Oral QAM every morning 02/15/20 20 Inactive polyethylene glycol 3350 17 gram/dose oral powder RxNorm: 901211 Take 17=1 capful Gram(s) Oral BID as needed mix with 4-8oz of liquid 06/12/19 22 024 Inactive metoprolol succinate ER 200 mg tablet,extended release 24 hr RxNorm: 546759 Take 1 Tablet(s) Oral QD 08/12/19 23 Active loperamide 2 mg capsule RxNorm: 881407 Take 1 Capsule(s) Oral QID as needed 06/12/19 22 Active hydralazine 50 mg tablet RxNorm: 517439 Take 1 Tablet(s) Oral QID 08/12/19 23 Active venlafaxine ER 75 mg capsule,extended release 24 hr RxNorm: 512301 Take 3 Capsule(s) Oral QD 06/12/19 22 023 Inactive icosapent ethyl 1 gram capsule RxNorm: 4656608 Take 2 Capsule(s) (2 gm) Oral BID with meals 10/07/19 23 023 Inactive Okay to dispense one 2gm tab if you have that available. Levemir FlexTouch U-100 Insulin 100 unit/mL (3 mL) subcutaneous pen RxNorm: 699515 Inject 80 Unit(s) Subcutaneous BID 07/14/19 23 023 Inactive Novolog Flexpen U-100 Insulin aspart 100 unit/mL (3 mL) subcutaneous RxNorm: [id number] Insert 30 Unit(s) Subcutaneous TID with meals 10/08/19 22 022 Inactive Medication Administered No Medication Administered data Reason For Visit No Reason For Visit data Plan of Care Planned Activity Notes Codes Status Date Referral: [facility] WPtel: [phone], [address] [id number] [place] Referral Records Received 09/21/2022 Referral: [facility] WPtel: [phone] [id number] [place] Referral Completed 05/28/2021 Referral: General Cardiology [...] attention.??Sister Jyotsna involved in his care cell# [phone]??Guardian: Giulia (tapan met in person 09/01/21), now has Lexii (same group as giulia)Lab Schedule: /September*September (CBC with diff, CMP, A1c) (Novemebr: CBC, CMP, A1c, Lipids, VitD) 10/08/2023
--- OUTSIDE RECORDS SUMMARY | 2023-11-06 05:51 | XMS_ITS | CCD ---
Author Name Cecilio Durham feliberto Address [address] [facility] [address] [place] [address] Phone Organization [facility] Phone Care Team Providers Care Optical Scientist Name Role Phone Harrison Durham Primary Care Provider Leona vailable Harrison Durham Chronic Care Management U navailable Summary Purpose DataExchange Insurance Providers Payer name Policy type / Coverage type Covered green party ID Effective Begin Date Effective End Date Medicare [place] Medicare Part B [id number] Unknown Unknown [place] Medicare Part B [id number] Unknown Unknown Family history Sister Brittany Suggs [...] Unknown Custodial 09/03/[address]: 4546716 Non-Smoker / No History of Smoking 09/02/[address]: 574110163 No Alcohol Consum ption 09/02/2020 Allergies, Adverse Reactions, Alerts Substance Reaction Codes Entered Date Inactivated Date Status * NO KNOWN FOOD ALLERGIES Unknown 07/13/2023 No Inactive Date Active LISINOPRIL RxNorm: 70775 02/12/2020 No Inactive Da te Active Metformin [...] ICD-10: E87.6 ICD-9: 276.8 10/12/2023 Resolved Other longterm (current) dr ug therapy ICD-10: [...] 08/10/2023 Active Coronary artery disease invo lving [place] coronary artery of [place] heart, angina presence unspecified ICD-10: I25.10 [...] ICD-10: Z23 ICD-9: V03.89 02/10/2022 Resolved intermediate frame tender (current) use of insulin ICD-10: Z79.4 [...] %-0.3 % drops in a dropperette RxNorm: 294324 Apply 1-2 Drop(s) Both eyes BID as needed 09/28/19 24 025 Active erythromycin 5 mg/gram (0.5 %) eye ointment RxNorm: 040977 Apply 1 Application Both eyes QHS every night at bedtime Instill ~1 cm ribbon into affected eye 09/28/19 24 024 Inactive Artificial Tears (PF) 0.1 %-0.3 % drops in a dropperette RxNorm: 738074 Apply 1-2 Drop(s) Both eyes BID as needed 09/28/19 24 024 Inactive erythromycin 5 mg/gram (0.5 %) eye ointment RxNorm: 188302 Apply 1 Application Both eyes QHS every night at bedtime Instill ~1 cm ribbon into affected eye 09/28/19 24 024 Inactive acetaminophen 500 mg tablet RxNorm: 926599 (MAX APAP:4GM/24HR) Take 1 Tablet(s) Oral TID as needed for pain 09/24/19 24 024 Inactive carvedilol 25 mg tablet RxNorm: 533987 Take 1 Tablet(s) Oral QD 09/08/19 24 No Stop Date Active pregabalin 100 mg capsule RxNorm: 011411 Take 1 Capsule(s) Oral QAM every morning 09/07/19 24 024 Active rosuvastatin 40 mg tablet RxNorm: 059848 Take 1 Tablet(s) Oral QPM every evening 07/13/19 24 No Stop Date Active ezetimibe 10 mg tablet RxNorm: 727170 Take 1 Tablet(s) Oral QD 07/13/19 24 No Stop Date Active bisacodyl 10 mg rectal suppository RxNorm: 118849 Insert 1 Suppository Rectal QD as needed 07/13/19 24 No Stop Date Active polyethylene glycol 3350 17 gram/dose oral powder RxNorm: 055211 Take 17 Gram(s) Oral BID as needed mix in 4-8ox water 07/13/19 24 No Stop Date Active ketoconazole 2 % shampoo RxNorm: 348200 Apply 1 Application Topical UD as directed 07/13/19 24 No Stop Date Active aripiprazole 15 mg tablet RxNorm: 898219 Take 1/2 Tablet(s) Oral QD 07/13/19 24 No Stop Date Active Ozempic 1 mg/dose (4 mg/3 mL) subcutaneous pen injector RxNorm: 7944949 Inject 1 Milligram(s) Subcutaneous QW once a week 07/13/19 24 No Stop Date Active Guaifenesin AC 10 mg-100 mg/5 mL oral liquid RxNorm: 268796 Take 10 Milliliter(s) Oral Q4H every four hours as needed 07/13/19 24 No Stop Date Active isosorbide mononitrate ER 60 mg tablet,extended release 24 hr RxNorm: 751419 Take 1 Tablet(s) Oral QD 07/13/19 24 No Stop Date Active ammonium lactate 12 % topical cream RxNorm: 543230 Apply 1 Application Topical BID 07/13/19 24 No Stop Date Active hydrocortisone 2.5 % topical cream RxNorm: 256301 Apply 1 Application Topical BID as needed 07/13/19 24 No Stop Date Active rosuvastatin 20 mg sprinkle capsule RxNorm: 5295677 Take 1 Capsule(s) Oral QD 07/13/19 24 No Stop Date Active Vascepa 1 gram capsule RxNorm: 5495200 Take 2 Capsule(s) Oral BID 07/13/19 24 No Stop Date Active venlafaxine ER 75 mg capsule,extended release 24 hr RxNorm: 736584 Take 3 Capsule(s) Oral QD 07/13/19 24 No Stop Date Active Basaglar KwikPen U-100 Insulin 100 unit/mL (3 mL) subcutaneous RxNorm: 7317568 Inject 30U SubQ twice daily 07/07/19 24 025 Active Please dispense one month supply. Basaglar KwikPen U-100 Insulin 100 unit/mL (3 mL) subcutaneous RxNorm: 0846634 Inject 30U SubQ twice daily 07/07/19 24 024 Inactive Please dispense one month supply. pregabalin 150 mg capsule RxNorm: 521093 Take 1 Capsule(s) Oral QHS every night at bedtime 07/05/19 024 Active pregabalin 150 mg capsule RxNorm: 651407 Take 1 Capsule(s) Oral QHS every night at bedtime 07/05/19 24 024 Inactive polyethylene glycol 3350 17 gram/dose oral powder RxNorm: 580365 Take 1 Packet Oral QD as needed (1 packet = 17g) mix with 4-8oz of liquid 06/15/19 24 024 Inactive bisacodyl 10 mg rectal suppository RxNorm: 262985 Insert one suppository per rectum once daily as needed for constipation 06/15/19 24 024 Inactive bisacodyl 10 mg rectal suppository RxNorm: 576949 Insert one suppository per rectum once daily as needed for constipation 06/15/19 24 024 Inactive pregabalin 100 mg capsule RxNorm: 798291 Take 1 Capsule(s) Oral QAM every morning 04/27/20 024 Inactive Levemir FlexPen 100 unit/mL (3 mL) solution subcutaneous insulin pen RxNorm: 937435 Inject 30 Unit(s) Subcutaneous BID 04/27/20 23 024 Inactive rosuvastatin 40 mg tablet RxNorm: 494840 Take 1 Tablet(s) Oral QPM every evening 04/16/20 024 Inactive D/C rosuvastatin 20mg venlafaxine ER 75 mg capsule,extended release 24 hr RxNorm: 829265 Take 3 Capsule(s) Oral QD 04/14/20 23 023 Inactive pregabalin 100 mg capsule RxNorm: 763249 Take 1 Capsule(s) Oral QAM every morning [...] meter clotrimazole 1 % topical cream RxNorm: 755206 Take apply topically to abdominal folds twice daily for 14 days 03/12/20 024 Inactive Ozempic 1 mg/dose (4 mg/3 mL) subcutaneous pen injector RxNorm: 5181832 Inject 1 Milligram(s) Subcutaneous QW once a week 03/11/20 23 023 Inactive rosuvastatin 20 mg tablet RxNorm: 458706 Take 1 Tablet(s) Oral QD 02/26/20 23 023 Inactive d/c pravastatin 80mg Ozempic 1 mg/dose (4 mg/3 mL) subcutaneous pen injector RxNorm: 9404731 Inject 1 Milligram(s) Subcutaneous QW once a week 02/20/20 23 023 Inactive pregabalin 150 mg capsule RxNorm: 317505 Take 1 Capsule(s) Oral HS at bed time 02/19/20 23 023 Inactive pregabalin 100 mg capsule RxNorm: 606632 Take 1 Capsule(s) Oral QAM every morning 02/18/20 23 023 Inactive venlafaxine ER 75 mg capsule,extended release 24 hr RxNorm: 370283 Take 3 Capsule(s) Oral QD 02/04/20 23 023 Inactive FreeStyle Chema 2 Sensor kit RxNorm: use as directed 02/04/20 023 Inactive FreeStyle Chema 2 Sensor kit RxNorm: use as directed 02/04/20 23 024 Inactive fluconazole 150 mg tablet RxNorm: 610815 Take 1 Tablet(s) Oral on day 3 and on day 6 02/03/20 23 024 Active chlorthalidone 25 mg tablet RxNorm: 101652 Take 1 Tablet(s) Oral QAM every morning 02/03/20 23 No Stop Date Active venlafaxine ER 150 mg capsule,extended release 24 hr RxNorm: 839328 Take 1 Capsule(s) Oral QD 02/03/20 023 Inactive acetaminophen 500 mg tablet RxNorm: 521170 1 TABLET ORALLY 3 TIMES DAILY (MAX APAP:4GM/24HR) 12/15/19 023 Inactive potassium chloride ER 20 mEq tablet,extended release RxNorm: 862967 Take 1 Tablet(s) Oral BID 12/09/19 024 Inactive d/c 20mEq once daily (sent from hospital) clotrimazole 1 % topical cream RxNorm: 028831 apply 1g topically to top of feet and in between toes BID 12/09/19 023 Inactive nystatin 100,000 unit/gram topical powder RxNorm: 413760 APPLY TO AFFECTED AREAS TOPICALLY 2 TIMES DAILY 11/21/19 024 Inactive Nystop 100,000 unit/gram topical powder RxNorm: 876645 Apply to abd folds, under breasts and L side of groin Topical BID x 14 days, then BID PRN 11/20/19 023 Inactive dx: yeast dermatitis Bengay Ultra Strength 4 %-30 %-10 % topical cream RxNorm: 701133 Apply 1 Gram(s) Topical QID PRN to feet and legs for neuropathic pain 11/11/19 024 Active clotrimazole 1 % topical cream RxNorm: 228370 Apply 1/2 Gram(s) Topical BID Apply to affected areas of groin, periarea, and abdominal topically 2 times daily 11/10/19 023 Inactive hydrocortisone 2.5 % topical cream RxNorm: 749393 Apply 1/2 Gram(s) Topical BID as needed 11/10/19 024 Inactive Humulin R U-500 (Concentrated) Insulin 500 unit/mL subcutaneous soln RxNorm: 511676 Inject 100 Unit(s) Subcutaneous TID 10/07/19 024 Inactive Levemir FlexPen 100 unit/mL (3 mL) solution subcutaneous insulin pen RxNorm: 558146 Inject 30 Unit(s) Subcutaneous BID 10/07/19 023 Inactive Ozempic 0.25 mg or 0.5 mg (2 mg/3 mL) subcutaneous pen injector RxNorm: 2671072 Inject 1/2 Milligram(s) Subcutaneous QW once a week 10/07/19 024 Inactive aripiprazole 15 mg tablet RxNorm: 152053 1/2 TAB (7.5MG) ORALLY DAILY (DX:MAJOR DEPRESSIVE DISORDER) 09/23/19 23 023 Inactive Lancets,Thin 28 gauge RxNorm: Use 1 as directed QID 09/15/19 23 024 Inactive Accu-Chek Guide test strips RxNorm: Use 1 Test Strip QID 09/15/19 23 023 Inactive ok to substitute with any covered alternative test strip torsemide 20 mg tablet RxNorm: 795391 Take 1 Tablet(s) Oral BID 09/09/19 024 Inactive d/c once daily dosing carvedilol 25 mg tablet RxNorm: 844466 Take 1 Tablet(s) Oral QD 08/25/19 024 Inactive pregabalin 150 mg capsule RxNorm: 760303 1 Capsule(s) Oral HS at bed time 08/18/19 23 023 Inactive pregabalin 100 mg capsule RxNorm: 276064 1 Capsule(s) Oral QAM every morning 08/18/19 23 023 Inactive carvedilol 25 mg tablet RxNorm: 338023 1 Tablet(s) Oral QD 07/28/19 023 Inactive lisinopril 20 mg tablet RxNorm: 336034 Give 1 Tablet(s) Oral QD 07/28/19 23 023 Inactive Lyrica 150 mg capsule RxNorm: 631575 Take 1 Capsule(s) Oral QHS every night at bedtime 07/19/19 023 Inactive d/c 100mg dose Diflucan 150 mg tablet RxNorm: 062581 Take 1 Tablet(s) Oral QD repeat on day 3 and 6 07/19/19 23 023 Inactive pregabalin 100 mg capsule RxNorm: 468951 Take 1 Capsule(s) Oral QAM every morning 07/19/19 23 023 Inactive gatifloxacin 0.5 % eye drops RxNorm: 707828 Instill 1 Drop(s) as directed TID Instill 1 drop in to affected eye(s) starting 1 day prior to surgery and continue until gone (do not exceed 4 weeks). 07/13/19 23 023 Inactive carvedilol 25 mg tablet RxNorm: 253934 2 Tablet(s) Oral BID 07/13/19 023 Inactive Humulin R Regular U-100 Insulin 100 unit/mL injection solution RxNorm: 364348 85 Unit(s) Injection TID 07/13/19 023 Inactive ketorolac 0.5 % eye drops RxNorm: 339524 Instill 1 Drop(s) as directed QID Instill 1 drop into affected eye(s) 4 times daily starting 1 day prior to surgery and continue until gone (do not exceed 4 weeks). 07/13/19 023 Inactive Diflucan 150 mg tablet RxNorm: 377796 Take 1 Tablet(s) Oral QD repeat on day 3 and 6 06/30/19 23 023 Inactive Accu-Chek Guide test strips RxNorm: Use 1 Test Strip QID Use 1 test strip to monitor blood glucose 4 times daily and as needed. Dx:E11.42. 06/23/19 23 023 Inactive ok to substitute with any covered alternative test strip dextromethorphan-gu aifenesin 10 mg-100 mg/5 mL oral liquid RxNorm: 410128 Take 10 Milliliter(s) Oral every 4 hours as needed for cough 06/19/19 23 023 Inactive dextromethorphan-gu aifenesin 10 mg-100 mg/5 mL oral liquid RxNorm: 564651 Take 10 Milliliter(s) Oral every 4 hours as needed for cough 06/19/19 23 023 Inactive Lyrica 150 mg capsule RxNorm: 432349 Take 1 Capsule(s) Oral QHS every night at bedtime 06/18/19 23 023 Inactive d/c 100mg dose aripiprazole 15 mg tablet RxNorm: 960246 1/2 TAB (7.5MG) ORALLY DAILY (DX:MAJOR DEPRESSIVE DISORDER) 06/05/19 23 023 Inactive pregabalin 100 mg capsule RxNorm: 382538 1 Capsule(s) Oral QAM every morning 06/02/19 023 Inactive Banophen 50 mg capsule RxNorm: 8245604 Take 1 Capsule(s) Oral Q6H every 6 hours as needed 05/19/19 No Stop Date Active Novolog Flexpen U-100 Insulin aspart 100 unit/mL (3 mL) subcutaneous RxNorm: 2872057 Inject 10 Unit(s) Subcutaneous QHS every night at bedtime with nighttime snack 04/08/20 022 Inactive Novolog Flexpen U-100 Insulin aspart 100 unit/mL (3 mL) subcutaneous RxNorm: 5301156 Inject 42 Unit(s) Subcutaneous TID in addition to sliding scale 04/08/20 Inactive d/c 36u albuterol sulfate HFA 90 mcg/actuation aerosol inhaler RxNorm: 7848672 Take 2 Puff(s) Inhalation Q4H every four hours as needed as needed for SOB, cough, or wheezing 04/07/20 030 Active Banophen 50 mg capsule RxNorm: 0727878 Take 1 Capsule(s) Oral Q6H every 6 hours as needed 04/06/20 023 Inactive diphenhydramine 50 mg tablet RxNorm: 8143916 Take 1 Tablet(s) Oral Q6H every 6 hours as needed 04/06/20 022 Inactive diphenhydramine 50 mg tablet RxNorm: 9328807 1 Tablet(s) Oral Q6H every 6 hours as needed 04/06/20 022 Inactive Abilify 15 mg tablet RxNorm: 539718 1/2 Tablet(s) Oral QD 03/10/20 023 Inactive Shingrix (PF) 50 mcg/0.5 mL intramuscular suspension, kit RxNorm: 2258128 Administer 1/2 Milliliter(s) Intramuscular QD one time shingrix step 2 ( step 1 given 11/04/21) WITH needle - Nursing please administer upon arrival and once administered post a bridge message with date of administration, field clerk, expiration date, and lot# so we can update [facility] 02/18/20 22 022 Inactive dispense with needle Shingrix (PF) 50 mcg/0.5 mL intramuscular suspension, kit RxNorm: 4232845 Administer 1/2 Milliliter(s) Intramuscular QD one time shingrix step 2 ( step 1 given 11/04/21) WITH needle - Nursing please administer upon arrival and once administered post a bridge message with date of administration, field clerk, expiration date, and lot# so we can update [facility] 02/18/20 22 022 Inactive dispense with needle polyethylene glycol 3350 17 gram/dose oral powder RxNorm: 972768 Take 17=1 capful Gram(s) Oral QD mix with 4-8oz of liquid 01/08/20 22 023 Inactive take this in addition to BID prn order Lyrica 100 mg capsule RxNorm: 124829 Take 1 Capsule(s) Oral QAM every morning 01/08/20 22 022 Inactive d/c 50mg dose acetaminophen 500 mg tablet RxNorm: 078396 Take 1 Tablet(s) Oral TID 01/08/20 22 022 Inactive d/c PRN order Lyrica 150 mg capsule RxNorm: 851038 Take 1 Capsule(s) Oral QHS every night at bedtime 01/08/20 22 023 Inactive d/c 100mg dose Abilify 5 mg tablet RxNorm: 533122 Take 1 Tablet(s) Oral QD take 1 tab po QD #30 refill 5 dx: MDD 12/12/19 22 022 Inactive Abilify 5 mg tablet RxNorm: 828995 Take 1 Tablet(s) Oral QD take 1 tab po QD #30 refill 5 dx: MDD 12/12/19 22 022 Inactive Novolog Flexpen U-100 Insulin aspart 100 unit/mL (3 mL) subcutaneous RxNorm: 2885688 Inject 42 Unit(s) Subcutaneous TID in addition to sliding scale 12/10/19 22 022 Inactive d/c 36u chlorthalidone 25 mg tablet RxNorm: 518490 Take 1 Tablet(s) Oral QAM every morning 12/10/19 22 023 Inactive pregabalin 50 mg capsule RxNorm: 834577 Take 1 Capsule(s) Oral QAM every morning 11/12/19 22 022 Inactive tetanus-diphtheria toxoids-Td 2 Lf unit-2 Lf unit/0.5 mL IM suspension RxNorm: 139 Take 0.5 Miscellaneous Intramuscular 11/12/19 22 022 Inactive need tdap - nursing to administer upon arrival pregabalin 50 mg capsule RxNorm: 622779 Take 1 Capsule(s) Oral QAM every morning 10/16/19 22 022 Inactive pregabalin 50 mg capsule RxNorm: 801367 Take 1 Capsule(s) Oral QAM every morning 10/16/19 22 022 Inactive pregabalin 50 mg capsule RxNorm: 461223 1 Capsule(s) Oral QAM every morning 10/15/19 22 022 Inactive Shingrix (PF) 50 mcg/0.5 mL intramuscular suspension, kit RxNorm: 7245848 Administer 1/2 Milliliter(s) Intramuscular one time Nursing please administer upon arrival and once administered post a bridge message with date of administration, field clerk, expiration date, and lot# so we can update [facility]. 10/09/19 22 022 Inactive shingrix step 1 Shingrix (PF) 50 mcg/0.5 mL intramuscular suspension, kit RxNorm: 3609839 Administer 1/2 Milliliter(s) Intramuscular one time Nursing please administer upon arrival and once administered post a bridge message with date of administration, field clerk, expiration date, and lot# so we can update [facility]. 10/09/19 22 022 Inactive shingrix step 1 cholecalciferol (vitamin D3) 1,250 mcg (50,000 unit) capsule RxNorm: 720456 Take 1 Capsule(s) Oral QW once a [...] aspart 100 unit/mL (3 mL) subcutaneous RxNorm: 7163323 Inject 10 Unit(s) Subcutaneous QHS every night at bedtime with nighttime snack 10/08/19 22 Inactive Shingrix (PF) 50 mcg/0.5 mL intramuscular suspension, kit RxNorm: 3748507 ADMINISTER 2-DOSE SERIES PER CDC GUIDELINES 10/08/19 22 Active Shingrix (PF) 50 mcg/0.5 mL intramuscular suspension, kit RxNorm: 8255596 ADMINISTER 2-DOSE SERIES PER CDC GUIDELINES 10/08/19 Inactive Novolog Flexpen U-100 Insulin aspart 100 unit/mL (3 mL) subcutaneous RxNorm: 1120473 Inject 36 Unit(s) Subcutaneous TID in addition to sliding scale 10/08/19 Inactive Novofine Autocover 30 gauge x 1/3 needle RxNorm: Use 1 Miscellaneous UD as directed Use 1 needle as directed to administer insulin 5 times a day Dx:E11.42. 10/03/19 Inactive ok to substitute with any covered alternative pen needle benzoyl peroxide 10 % topical cleanser RxNorm: 381563 Apply 1 Application Topical QD apply to face, wash rinse and dry once daily (may change to QOD if drying) 08/19/19 022 Inactive (%covered by insurance) #60ml refill 11 dx: acne benzoyl peroxide 10 % topical cleanser RxNorm: 096562 Apply 1 Application Topical QD apply to face, wash rinse and dry once daily (may change to QOD if drying) 08/19/19 22 022 Inactive (%covered by insurance) #60ml refill 11 dx: acne benzoyl peroxide 10 % topical cleanser RxNorm: 963905 Apply 1 Application Topical QD apply to face, wash rinse and dry once daily (may change to QOD if drying) 08/19/19 22 022 Inactive (%covered by insurance) #60ml refill 11 dx: acne Lyrica 50 mg capsule RxNorm: 161618 Take 1 Capsule(s) Oral QAM every morning Take 1 capsule by mouth once daily 08/19/19 22 022 Inactive benzoyl peroxide 10 % topical cleanser RxNorm: 355521 Apply 1 Application Topical QD apply to face, wash rinse and dry once daily (may change to QOD if drying) 08/19/19 22 Inactive (%covered by insurance) #60ml refill 11 dx: acne Lyrica 100 mg capsule RxNorm: 373476 Take 1 Capsule(s) Oral QHS every night at bedtime Take 1 capsule by mouth once daily at bedtime 08/19/19 022 Inactive Lyrica 100 mg capsule RxNorm: 227242 Take 1 Capsule(s) Oral QHS every night at bedtime Take 1 capsule by mouth once daily at bedtime 08/16/19 22 Inactive Lyrica 50 mg capsule RxNorm: 759105 Take 1 Capsule(s) Oral QAM every morning Take 1 capsule by mouth once daily 08/16/19 22 Inactive Levemir FlexTouch U-100 Insulin 100 unit/mL (3 mL) subcutaneous pen RxNorm: 410953 Inject 86 Unit(s) Subcutaneous BID 08/05/19 22 022 Inactive d/c 83units BID Lyrica 100 mg capsule RxNorm: 425348 Take 1 Capsule(s) Oral QHS every night at bedtime Take 1 capsule by mouth once daily at bedtime 07/14/19 22 022 Inactive Lyrica 50 mg capsule RxNorm: 441574 Take 1 Capsule(s) Oral QAM every morning Take 1 capsule by mouth once daily 07/14/19 22 022 Inactive Levemir FlexTouch U-100 Insulin 100 unit/mL (3 mL) subcutaneous pen RxNorm: 350585 Inject 83 Unit(s) Subcutaneous BID 07/08/19 22 [...] test strip hydralazine 50 mg tablet RxNorm: 758902 Take 1 Tablet(s) Oral QID 05/05/20 21 022 Inactive venlafaxine ER 225 mg tablet,extended release 24 hr RxNorm: 275705 Take 1 Tablet(s) Oral QD 05/05/20 21 021 Inactive venlafaxine ER 225 mg tablet,extended release 24 hr RxNorm: 366262 Take 1 Tablet(s) Oral QD 05/05/20 21 022 Inactive isosorbide mononitrate ER 30 mg tablet,extended release 24 hr RxNorm: 776366 Take 1 Tablet(s) Oral QD 05/05/20 21 024 Inactive hydralazine 50 mg tablet RxNorm: 831384 Take 1 Tablet(s) Oral QID 05/05/20 21 021 Inactive aspirin 81 mg tablet,delayed release RxNorm: 351020 Take 1 Tablet(s) Oral QD 03/31/20 022 Inactive Vitamin D2 1,250 mcg (50,000 unit) capsule RxNorm: 8521394 Take 1 Capsule(s) Oral QW once a week x 12 weeks 03/31/20 022 Inactive Vitamin D2 1,250 mcg (50,000 unit) capsule RxNorm: 8823202 Take 1 Capsule(s) Oral QW once a week 03/31/20 021 Inactive Zetia 10 mg tablet RxNorm: 978891 Take 1 Tablet(s) Oral QD 03/31/20 024 Inactive Zetia 10 mg tablet RxNorm: 166801 Take 1 Tablet(s) Oral QD 03/31/20 021 Inactive hydralazine 25 mg tablet RxNorm: 914984 Take 1 Tablet(s) Oral QID 03/31/20 21 021 Inactive hydralazine 25 mg tablet RxNorm: 323209 Take 1 Tablet(s) Oral QID 03/31/20 021 Inactive hydralazine 10 mg tablet RxNorm: 952836 Take 1 Tablet(s) Oral QID 03/03/20 021 Inactive cephalexin 500 mg tablet RxNorm: 607737 Take 1 Tablet(s) Oral QID 02/27/20 021 Inactive cephalexin 500 mg tablet RxNorm: 665949 Take 1 Tablet(s) Oral QID 02/27/20 021 Inactive lisinopril 40 mg tablet RxNorm: 950283 Take 1 Tablet(s) Oral QD 02/11/20 21 023 Inactive Eliquis 5 mg tablet RxNorm: 1064185 Take 1 Tablet(s) Oral BID 01/05/20 21 022 Inactive Eliquis 5 mg tablet RxNorm: 3693000 Take 2 Tablet(s) Oral QD 01/01/20 21 021 Inactive Lyrica 50 mg capsule RxNorm: 675821 Take 1 Capsule(s) Oral QAM every morning 12/24/19 21 021 Inactive Lyrica 100 mg capsule RxNorm: 198288 Take 1 Capsule(s) Oral QHS every night at bedtime 12/24/19 21 021 Inactive clotrimazole 1 % topical cream RxNorm: 286056 Apply to right foot and toes Topical BID 12/04/19 21 023 Inactive metoprolol succinate ER 200 mg tablet,extended release 24 hr RxNorm: 488259 Take 1 Tablet(s) Oral QD 12/04/19 21 023 Inactive ciprofloxacin 500 mg tablet RxNorm: 850244 Take 1 Tablet(s) Oral QD 11/30/19 21 021 Inactive DX ofloxacin otic drops Accu-Chek Guide test strips RxNorm: USE 1 TO CHECK GLUCOSE 4 TIMES DAILY AND NEEDED 11/15/19 21 023 Inactive Blood Glucose Test strips RxNorm: Use 1 Test Strip QID at PRN 11/05/19 21 023 Inactive E11.42 lisinopril 30 mg tablet RxNorm: 517846 Take 1 Tablet(s) Oral QD 10/30/19 021 Inactive lisinopril 20 mg tablet RxNorm: 667184 Take 1 Tablet(s) Oral QD 10/23/19 21 021 Inactive lisinopril 20 mg tablet RxNorm: 835918 Take 1 Tablet(s) Oral QD 10/23/19 21 021 Inactive lisinopril 10 mg tablet RxNorm: 730478 Take 1 Tablet(s) Oral QD 10/02/19 21 021 Inactive icosapent ethyl 1 gram capsule RxNorm: 9453455 Take 2 Capsule(s) (2 gm) Oral BID with meals 09/12/19 21 024 Inactive Okay to dispense one 2gm tab if you have that available. icosapent ethyl 1 gram capsule RxNorm: 5777976 Take 2 Capsule(s) Oral BID 09/12/19 21 021 Inactive Okay to dispense one 2gm tab if you have that available. amlodipine 10 mg tablet RxNorm: 362849 Take 1 Tablet(s) Oral QD 09/04/19 022 Inactive aspirin 81 mg tablet,delayed release RxNorm: 799069 Take 1 Tablet(s) Oral QD 09/04/19 Inactive Levemir FlexTouch U-100 Insulin 100 unit/mL (3 mL) subcutaneous pen RxNorm: 373634 Inject 150 Unit(s) Subcutaneous BID 09/04/19 022 Inactive venlafaxine ER 150 mg tablet,extended release 24 hr RxNorm: 899629 Take 1 Tablet(s) Oral QD 09/04/19 21 Inactive clotrimazole-betame thasone 1 %-0.05 % topical cream RxNorm: 089313 Apply to rash on red area on left abdomen/chest Topical BID 08/10/19 Inactive amlodipine 5 mg tablet RxNorm: 802644 Take 1 Tablet(s) Oral QD 07/31/19 Inactive cephalexin 500 mg tablet RxNorm: 608190 Take 1 Tablet(s) Oral BID BID - Twice Daily 07/31/19 Inactive Start 08/01/20 pantoprazole 40 mg tablet,delayed release RxNorm: 274916 Take 1 Tablet(s) Oral QAM every morning 07/08/19 022 Inactive senna 8.6 mg tablet RxNorm: 349139 Take 1 Tablet(s) Oral QD 07/08/19 022 Inactive carbamazepine 200 mg tablet RxNorm: 204016 Take 1 Tablet(s) Oral BID 07/08/19 022 Inactive clopidogrel 75 mg tablet RxNorm: 017030 Take 1 Tablet(s) Oral QD 07/08/19 021 Inactive Blood Glucose Test strips RxNorm: Use 1 Test Strip QID at PRN 07/08/19 21 021 Inactive E11.42 Novolog Flexpen U-100 Insulin aspart 100 unit/mL (3 mL) subcutaneous RxNorm: 9745892 Administer per sliding scale Milliliter(s) Subcutaneous TID 151-200: 10 u; 201-250: 20 u; 251-300: 30 u; 301-350: 40 u; 351-400: 50 u. 07/08/19 022 Inactive lisinopril 5 mg tablet RxNorm: 211922 Take 1 Tablet(s) Oral QD 07/08/19 021 Inactive Novolog Flexpen U-100 Insulin aspart 100 unit/mL (3 mL) subcutaneous RxNorm: 5367505 Inject 85 Unit(s) Subcutaneous TID 07/08/19 022 Inactive pravastatin 80 mg tablet RxNorm: 678144 Take 1 Tablet(s) Oral QHS every night at bedtime 07/08/19 023 Inactive clotrimazole 1 % topical cream RxNorm: 267700 Apply to bilateral groin areas Topical BID 07/08/19 022 Inactive metoprolol succinate ER 200 mg tablet,extended release 24 hr RxNorm: 010535 Take 1 Tablet(s) Oral QD 07/08/19 021 Inactive Vitamin D3 25 mcg (1,000 unit) tablet RxNorm: 069842 Take 1 Tablet(s) Oral QD 07/08/19 021 Inactive isosorbide dinitrate 30 mg tablet RxNorm: 382314 Take 1 Tablet(s) Oral QD 07/08/19 021 Inactive Levemir FlexTouch U-100 Insulin 100 unit/mL (3 mL) subcutaneous pen RxNorm: 258966 Inject 140 Unit(s) Subcutaneous BID 07/08/19 021 Inactive torsemide 20 mg tablet RxNorm: 212328 Take 1 Tablet(s) Oral QD 07/08/19 023 Inactive venlafaxine 75 mg tablet RxNorm: 046738 Take 1 Tablet(s) Oral QD 07/08/19 021 Inactive acetaminophen 500 mg tablet RxNorm: 557351 Take 1 Tablet(s) Oral TID as needed for headache 06/18/19 021 Inactive acetaminophen 500 mg tablet RxNorm: Take 1 Tablet(s) Oral TID as needed for headache 06/18/19 21 021 Inactive Lyrica 100 mg capsule RxNorm: 409358 Take 1 Capsule(s) Oral QHS every night at bedtime 06/11/19 21 021 Inactive Lyrica 50 mg capsule RxNorm: 126924 Take 1 Capsule(s) Oral QAM every morning 06/10/19 21 021 Inactive hydrocortisone 2.5 % topical cream RxNorm: 578669 Apply to bilateral groin creases Topical BID 05/15/20 20 021 Inactive clotrimazole 1 % topical cream RxNorm: 722970 Apply to bilateral groin areas Topical BID 05/15/20 20 021 Inactive Lyrica 50 mg capsule RxNorm: 834215 Take 1 Capsule(s) Oral QAM every morning 05/14/20 20 020 Inactive Lyrica 100 mg capsule RxNorm: 706374 Take 1 Capsule(s) Oral QHS every night [...] Inactive Nystop 100,000 unit/gram topical powder RxNorm: 093290 Apply to abd folds, under breasts and L side of groin Topical BID x 14 days, then BID PRN 04/08/20 20 020 Inactive dx: yeast dermatitis Lyrica 100 mg capsule RxNorm: 862807 Take 1 Capsule(s) Oral QHS every night at bedtime 03/13/20 20 020 Inactive Lyrica 50 mg capsule RxNorm: 183336 Take 1 Capsule(s) Oral QAM every morning 03/13/20 20 Inactive ketoconazole 2 % shampoo RxNorm: 333649 Apply Topical two times a week with showers 03/11/20 20 Inactive cholecalciferol (vitamin D3) 50 mcg (2,000 unit) tablet RxNorm: 833319 Take 1 Tablet(s) Oral QD 03/11/20 20 021 Inactive Zetia 10 mg tablet RxNorm: 775984 Take 1 Tablet(s) Oral QD 03/07/20 20 021 Inactive Zetia 10 mg tablet RxNorm: 267546 Take 1 Tablet(s) Oral QD 03/07/20 20 Inactive Lyrica 50 mg capsule RxNorm: 918427 Take 1 Capsule(s) Oral QAM every morning 02/15/20 20 Inactive Lyrica 100 mg capsule RxNorm: 975140 Take 1 Capsule(s) Oral QHS every night at bedtime 02/15/20 20 Inactive Lyrica 100 mg capsule RxNorm: 199555 Take 1 Capsule(s) Oral QHS every night at bedtime 02/15/20 20 Inactive Lyrica 50 mg capsule RxNorm: 537893 Take 1 Capsule(s) Oral QAM every morning 02/15/20 20 Inactive metoprolol succinate ER 200 mg tablet,extended release 24 hr RxNorm: 809258 Take 1 Tablet(s) Oral QD 08/12/19 23 Active loperamide 2 mg capsule RxNorm: 655112 Take 1 Capsule(s) Oral QID as needed 06/12/19 22 Active hydralazine 50 mg tablet RxNorm: 136824 Take 1 Tablet(s) Oral QID 08/12/19 23 Active venlafaxine ER 75 mg capsule,extended release 24 hr RxNorm: 926582 Take 3 Capsule(s) Oral QD 06/12/19 22 023 Inactive polyethylene glycol 3350 17 gram/dose oral powder RxNorm: 621774 Take 17=1 capful Gram(s) Oral BID as needed mix with 4-8oz of liquid 06/12/19 22 024 Inactive icosapent ethyl 1 gram capsule RxNorm: 1327181 Take 2 Capsule(s) (2 gm) Oral BID with meals 10/07/19 23 023 Inactive Okay to dispense one 2gm tab if you have that available. Levemir FlexTouch U-100 Insulin 100 unit/mL (3 mL) subcutaneous pen RxNorm: 875156 Inject 80 Unit(s) Subcutaneous BID 07/14/19 23 023 Inactive Novolog Flexpen U-100 Insulin aspart 100 unit/mL (3 mL) subcutaneous RxNorm: 8841058 Insert 30 Unit(s) Subcutaneous TID with meals [...] Comprehensive Metabolic Panel (CMP) BPS ANION GAP 26147-4 15 mmol/L 10/15/19 24 Unknown Comprehensive Metabolic Panel (CMP) BPS CREATININE 2160-0 1.45 mg/dL 10/15/19 24 Unknown Comprehensive Metabolic Panel (CMP) BPS BLOOD UREA NITROGEN 3094-0 30.0 mg/dL 10/15/19 24 Unknown Comprehensive Metabolic Panel (CMP) BPS BUN/CREATININE RATIO RATIO 10/15/19 24 Unknown Comprehensive Metabolic Panel (CMP) BPS CALCIUM 86771-7 8.6 mg/dL 10/15/19 24 Unknown Comprehensive Metabolic Panel (CMP) BPS GFR, ESTIMATED 74887-9 54 mL/min/1.7 3m2 10/15/19 24 Unknown Comprehensive Metabolic Panel (C[place] [address]-9 mL/min/1.7 3m2 10/15/19 24 Unknown Comprehensive Metabolic [...] 1: 128/84 Code: 8480-6 BMI: NaN Code: 60689-3 Heart Rate 1: 75 bpm Code: 8867-4 [...] Reducible umbilical hernia[ICD10: K42.9] Harrison Munson [facility] [address] [place] [address] [place] [address] CPT-4: 45743 10/12/2023 Plan of Care Planned Activity Notes Codes Status Date Patient Education: Patient Medication Summary Completed 10/12/2023 Patient Education: Influenza Completed 10/12/2023 Care Plan: CBC w/Differential Ordered 10/12/2023 Care Plan: Hemoglobin A1c [facility] : 24828-5 Ordered 10/12/2023 Appointment: Sandra Clark WPtel: [address] [facility] [address] [id number] Telehealth Psych Fol low Up 12/09/2022 Appointment: Tapan Shirley WPtel: [address] [facility] [address] [id number] [facility] 10/26/2022 Referral: [facility] WPtel: [phone] [facility] [address] [id number] Referral Records Received 09/21/2022 Appointment: Tapan Shirley WPtel: [phone] [place] F/U 08/11/2022 Appointment: Tapan Shirley WPtel: [address] [facility] 300 [id number] [place] F/U 07/14/2022 Appointment: Tapan Shirley WPtel: [phone] [place] F/U 02/10/2022 Referral: [facility] WPtel: [address] [facility] [address] [id number] [place] Referral Completed 05/28/2021 Referral: General Cardiology [...] 05/2021 he moved to [facility] to have closer nursing attention.??Sister Jyotsna involved in his care cell# [phone]??Guardian: Giulia (tapan met in person 09/01/21), now has Lexii (same group as giulia)Lab Schedule: *September (CBC with diff, CMP, A1c) (Novemebr: CBC, CMP, A1c, Lipids, VitD) 10/08/2023 Learning disability Unknown severity.?? Leonid is able to answer questions about his health and remember topics from previous visits with PCP.?? Living in supportive environment with 07/12 support manager present.?? History of anemia due to CKD [...] weight loss. Continue Ozempic regimen already in place.??. 10/12/2023
--- OUTSIDE RECORDS SUMMARY | 2023-11-06 05:51 | XMS_ITS | CCD ---
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, Harrison Primary Care Provider Leona vailable Blair POWDERED METAL SUPERVISOR-C, Harrison Chronic Care Management U navailable Summary Purpose DataExchange Insurance Providers Payer name Policy type / Coverage type Covered alliance party ID Effective Begin Date Effective End Date [place] Part B [id number] Unknown Unknown [place] Medicare Part B [id number] Unknown Unknown Family history Sister Brittany Suggs [...] Snf 09/03/[address]: 7853957 Non-Smoker / No History of Smoking 09/02/[address]: 943539629 No Alcohol Consum ption 09/02/2020 Allergies, Adverse Reactions, Alerts Substance Reaction Codes Entered Date Inactivated Date Status * NO KNOWN FOOD ALLERGIES Unknown 07/13/2023 No Inactive Date Active LISINOPRIL RxNorm: 37985 02/12/2020 No Inactive Da te Active Metformin [...] 08/10/2023 Active Coronary artery disease invo lving [place] coronary artery of [place] heart, angina presence unspecified ICD-10: I25.10 ICD-9: [...] ICD-10: F81.9 ICD-9: 315.2 03/03/2023 Active 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 ICD-10: Z79.899 [...] 5 mg/gram (0.5 %) eye ointment RxNorm: 394340 Apply 1 Application Both eyes QHS every night at bedtime Instill ~1 cm ribbon into affected eye 09/28/19 24 Inactive Artificial Tears (PF) 0.1 %-0.3 % drops in a dropperette RxNorm: 985712 Apply 1-2 Drop(s) Both eyes BID as needed 09/28/19 24 Inactive Artificial Tears (PF) 0.1 %-0.3 % drops in a dropperette RxNorm: 635916 Apply 1-2 Drop(s) Both eyes BID as needed 09/28/19 24 Active erythromycin 5 mg/gram (0.5 %) eye ointment RxNorm: 289553 Apply 1 Application Both eyes QHS every night at bedtime Instill ~1 cm ribbon into affected eye 09/28/19 24 Inactive acetaminophen 500 mg tablet RxNorm: 433799 (MAX APAP:4GM/24HR) Take 1 Tablet(s) Oral TID as needed for pain 09/24/19 24 Inactive carvedilol 25 mg tablet RxNorm: 122973 Take 1 Tablet(s) Oral QD 09/08/19 24 No Stop Date Active pregabalin 100 mg capsule RxNorm: 240656 Take 1 Capsule(s) Oral QAM every morning 09/07/19 24 024 Active rosuvastatin 40 mg tablet RxNorm: 964768 Take 1 Tablet(s) Oral QPM every evening 07/13/19 24 No Stop Date Active ezetimibe 10 mg tablet RxNorm: 939306 Take 1 Tablet(s) Oral QD 07/13/19 24 No Stop Date Active bisacodyl 10 mg rectal suppository RxNorm: 407745 Insert 1 Suppository Rectal QD as needed 07/13/19 24 No Stop Date Active polyethylene glycol 3350 17 gram/dose oral powder RxNorm: 652340 Take 17 Gram(s) Oral BID as needed mix in 4-8ox water 07/13/19 24 No Stop Date Active ketoconazole 2 % shampoo RxNorm: 889194 Apply 1 Application Topical UD as directed 07/13/19 24 No Stop Date Active aripiprazole 15 mg tablet RxNorm: 294680 Take 1/2 Tablet(s) Oral QD 07/13/19 24 No Stop Date Active Ozempic 1 mg/dose (4 mg/3 mL) subcutaneous pen injector RxNorm: 7725438 Inject 1 Milligram(s) Subcutaneous QW once a week 07/13/19 24 No Stop Date Active Guaifenesin AC 10 mg-100 mg/5 mL oral liquid RxNorm: 470717 Take 10 Milliliter(s) Oral Q4H every four hours as needed 07/13/19 24 No Stop Date Active isosorbide mononitrate ER 60 mg tablet,extended release 24 hr RxNorm: 469763 Take 1 Tablet(s) Oral QD 07/13/19 24 No Stop Date Active ammonium lactate 12 % topical cream RxNorm: 350647 Apply 1 Application Topical BID 07/13/19 24 No Stop Date Active hydrocortisone 2.5 % topical cream RxNorm: 197298 Apply 1 Application Topical BID as needed 07/13/19 24 No Stop Date Active rosuvastatin 20 mg sprinkle capsule RxNorm: 9680015 Take 1 Capsule(s) Oral QD 07/13/19 24 No Stop Date Active Vascepa 1 gram capsule RxNorm: 7446572 Take 2 Capsule(s) Oral BID 07/13/19 24 No Stop Date Active venlafaxine ER 75 mg capsule,extended release 24 hr RxNorm: 009587 Take 3 Capsule(s) Oral QD 07/13/19 24 No Stop Date Active Basaglar KwikPen U-100 Insulin 100 unit/mL (3 mL) subcutaneous RxNorm: 1681589 Inject 30U SubQ twice daily 07/07/19 24 025 Active Please dispense one month supply. Basaglar KwikPen U-100 Insulin 100 unit/mL (3 mL) subcutaneous RxNorm: 5595524 Inject 30U SubQ twice daily 07/07/19 24 024 Inactive Please dispense one month supply. pregabalin 150 mg capsule RxNorm: 884642 Take 1 Capsule(s) Oral QHS every night at bedtime 07/05/19 24 024 Active pregabalin 150 mg capsule RxNorm: 546626 Take 1 Capsule(s) Oral QHS every night at bedtime 07/05/19 024 Inactive polyethylene glycol 3350 17 gram/dose oral powder RxNorm: 241153 Take 1 Packet Oral QD as needed (1 packet = 17g) mix with 4-8oz of liquid 06/15/19 024 Inactive bisacodyl 10 mg rectal suppository RxNorm: 430831 Insert one suppository per rectum once daily as needed for constipation 06/15/19 024 Inactive bisacodyl 10 mg rectal suppository RxNorm: 224290 Insert one suppository per rectum once daily as needed for constipation 06/15/19 024 Inactive pregabalin 100 mg capsule RxNorm: 447705 Take 1 Capsule(s) Oral QAM every morning 04/27/20 024 Inactive Levemir FlexPen 100 unit/mL (3 mL) solution subcutaneous insulin pen RxNorm: 885889 Inject 30 Unit(s) Subcutaneous BID 04/27/20 024 Inactive rosuvastatin 40 mg tablet RxNorm: 846456 Take 1 Tablet(s) Oral QPM every evening 04/16/20 024 Inactive D/C rosuvastatin 20mg venlafaxine ER 75 mg capsule,extended release 24 hr RxNorm: 691939 Take 3 Capsule(s) Oral QD 04/14/20 23 023 Inactive pregabalin 100 mg capsule RxNorm: 162801 Take 1 Capsule(s) Oral QAM every morning [...] meter clotrimazole 1 % topical cream RxNorm: 563564 Take apply topically to abdominal folds twice daily for 14 days 03/12/20 024 Inactive Ozempic 1 mg/dose (4 mg/3 mL) subcutaneous pen injector RxNorm: 9944177 Inject 1 Milligram(s) Subcutaneous QW once a week 03/11/20 023 Inactive rosuvastatin 20 mg tablet RxNorm: 150729 Take 1 Tablet(s) Oral QD 02/26/20 023 Inactive d/c pravastatin 80mg Ozempic 1 mg/dose (4 mg/3 mL) subcutaneous pen injector RxNorm: 7689139 Inject 1 Milligram(s) Subcutaneous QW once a week 02/20/20 023 Inactive pregabalin 150 mg capsule RxNorm: 888480 Take 1 Capsule(s) Oral HS at bed time 02/19/20 023 Inactive pregabalin 100 mg capsule RxNorm: 853842 Take 1 Capsule(s) Oral QAM every morning 02/18/20 023 Inactive venlafaxine ER 75 mg capsule,extended release 24 hr RxNorm: 605583 Take 3 Capsule(s) Oral QD 02/04/20 023 Inactive FreeStyle Chema 2 Sensor kit RxNorm: use as directed 02/04/20 23 023 Inactive FreeStyle Chema 2 Sensor kit RxNorm: use as directed 02/04/20 23 024 Inactive fluconazole 150 mg tablet RxNorm: 019086 Take 1 Tablet(s) Oral on day 3 and on day 6 02/03/20 23 024 Active chlorthalidone 25 mg tablet RxNorm: 315620 Take 1 Tablet(s) Oral QAM every morning 02/03/20 23 No Stop Date Active venlafaxine ER 150 mg capsule,extended release 24 hr RxNorm: 458068 Take 1 Capsule(s) Oral QD 02/03/20 23 023 Inactive acetaminophen 500 mg tablet RxNorm: 002827 1 TABLET ORALLY 3 TIMES DAILY (MAX APAP:4GM/24HR) 12/15/19 23 023 Inactive potassium chloride ER 20 mEq tablet,extended release RxNorm: 317000 Take 1 Tablet(s) Oral BID 12/09/19 024 Inactive d/c 20mEq once daily (sent from hospital) clotrimazole 1 % topical cream RxNorm: 736453 apply 1g topically to top of feet and in between toes BID 12/09/19 023 Inactive nystatin 100,000 unit/gram topical powder RxNorm: 670630 APPLY TO AFFECTED AREAS TOPICALLY 2 TIMES DAILY 11/21/19 024 Inactive Nystop 100,000 unit/gram topical powder RxNorm: 814348 Apply to abd folds, under breasts and L side of groin Topical BID x 14 days, then BID PRN 11/20/19 023 Inactive dx: yeast dermatitis [place] Ultra Strength 4 %-30 %-10 % topical cream RxNorm: 855387 Apply 1 Gram(s) Topical QID PRN to feet and legs for neuropathic pain 11/11/19 024 Active clotrimazole 1 % topical cream RxNorm: 242411 Apply 1/2 Gram(s) Topical BID Apply to affected areas of groin, periarea, and abdominal topically 2 times daily 11/10/19 023 Inactive hydrocortisone 2.5 % topical cream RxNorm: 422598 Apply 1/2 Gram(s) Topical BID as needed 11/10/19 024 Inactive Humulin R U-500 (Concentrated) Insulin 500 unit/mL subcutaneous soln RxNorm: 377990 Inject 100 Unit(s) Subcutaneous TID 10/07/19 23 024 Inactive Levemir FlexPen 100 unit/mL (3 mL) solution subcutaneous insulin pen RxNorm: 690676 Inject 30 Unit(s) Subcutaneous BID 10/07/19 023 Inactive Ozempic 0.25 mg or 0.5 mg (2 mg/3 mL) subcutaneous pen injector RxNorm: 6103240 Inject 1/2 Milligram(s) Subcutaneous QW once a week 10/07/19 23 024 Inactive aripiprazole 15 mg tablet RxNorm: 555427 1/2 TAB (7.5MG) ORALLY DAILY (DX:MAJOR DEPRESSIVE DISORDER) 09/23/19 23 023 Inactive Lancets,Thin 28 gauge RxNorm: Use 1 as directed QID 09/15/19 23 024 Inactive Accu-Chek Guide test strips RxNorm: Use 1 Test Strip QID 09/15/19 23 023 Inactive ok to substitute with any covered alternative test strip torsemide 20 mg tablet RxNorm: 582725 Take 1 Tablet(s) Oral BID 09/09/19 23 024 Inactive d/c once daily dosing carvedilol 25 mg tablet RxNorm: 347023 Take 1 Tablet(s) Oral QD 08/25/19 23 024 Inactive pregabalin 150 mg capsule RxNorm: 521208 1 Capsule(s) Oral HS at bed time 08/18/19 23 023 Inactive pregabalin 100 mg capsule RxNorm: 943581 1 Capsule(s) Oral QAM every morning 08/18/19 23 023 Inactive carvedilol 25 mg tablet RxNorm: 827376 1 Tablet(s) Oral QD 07/28/19 23 023 Inactive lisinopril 20 mg tablet RxNorm: 871869 Give 1 Tablet(s) Oral QD 07/28/19 23 023 Inactive Lyrica 150 mg capsule RxNorm: 300718 Take 1 Capsule(s) Oral QHS every night at bedtime 07/19/19 023 Inactive d/c 100mg dose Diflucan 150 mg tablet RxNorm: 817592 Take 1 Tablet(s) Oral QD repeat on day 3 and 6 07/19/19 23 023 Inactive pregabalin 100 mg capsule RxNorm: 237075 Take 1 Capsule(s) Oral QAM every morning 07/19/19 23 023 Inactive gatifloxacin 0.5 % eye drops RxNorm: 426777 Instill 1 Drop(s) as directed TID Instill 1 drop in to affected eye(s) starting 1 day prior to surgery and continue until gone (do not exceed 4 weeks). 07/13/19 23 023 Inactive carvedilol 25 mg tablet RxNorm: 107347 2 Tablet(s) Oral BID 07/13/19 23 023 Inactive Humulin R Regular U-100 Insulin 100 unit/mL injection solution RxNorm: 790829 85 Unit(s) Injection TID 07/13/19 23 023 Inactive ketorolac 0.5 % eye drops RxNorm: 799558 Instill 1 Drop(s) as directed QID Instill 1 drop into affected eye(s) 4 times daily starting 1 day prior to surgery and continue until gone (do not exceed 4 weeks). 07/13/19 23 023 Inactive Diflucan 150 mg tablet RxNorm: 585254 Take 1 Tablet(s) Oral QD repeat on day 3 and 6 06/30/19 023 Inactive Accu-Chek Guide test strips RxNorm: Use 1 Test Strip QID Use 1 test strip to monitor blood glucose 4 times daily and as needed. Dx:E11.42. 06/23/19 23 023 Inactive ok to substitute with any covered alternative test strip dextromethorphan-gu aifenesin 10 mg-100 mg/5 mL oral liquid RxNorm: 962779 Take 10 Milliliter(s) Oral every 4 hours as needed for cough 06/19/19 023 Inactive dextromethorphan-gu aifenesin 10 mg-100 mg/5 mL oral liquid RxNorm: 203904 Take 10 Milliliter(s) Oral every 4 hours as needed for cough 06/19/19 023 Inactive Lyrica 150 mg capsule RxNorm: 198833 Take 1 Capsule(s) Oral QHS every night at bedtime 06/18/19 023 Inactive d/c 100mg dose aripiprazole 15 mg tablet RxNorm: 332103 1/2 TAB (7.5MG) ORALLY DAILY (DX:MAJOR DEPRESSIVE DISORDER) 06/05/19 23 023 Inactive pregabalin 100 mg capsule RxNorm: 974993 1 Capsule(s) Oral QAM every morning 06/02/19 23 023 Inactive Banophen 50 mg capsule RxNorm: 0811247 Take 1 Capsule(s) Oral Q6H every 6 hours as needed 05/19/19 No Stop Date Active Novolog Flexpen U-100 Insulin aspart 100 unit/mL (3 mL) subcutaneous RxNorm: 0038696 Inject 10 Unit(s) Subcutaneous QHS every night at bedtime with nighttime snack 04/08/20 Inactive Novolog Flexpen U-100 Insulin aspart 100 unit/mL (3 mL) subcutaneous RxNorm: 0760273 Inject 42 Unit(s) Subcutaneous TID in addition to sliding scale 04/08/20 Inactive d/c 36u albuterol sulfate HFA 90 mcg/actuation aerosol inhaler RxNorm: 5148061 Take 2 Puff(s) Inhalation Q4H every four hours as needed as needed for SOB, cough, or wheezing 04/07/20 030 Active Banophen 50 mg capsule RxNorm: 3964357 Take 1 Capsule(s) Oral Q6H every 6 hours as needed 04/06/20 023 Inactive diphenhydramine 50 mg tablet RxNorm: 2760714 Take 1 Tablet(s) Oral Q6H every 6 hours as needed 04/06/20 022 Inactive diphenhydramine 50 mg tablet RxNorm: 4445492 1 Tablet(s) Oral Q6H every 6 hours as needed 04/06/20 022 Inactive Abilify 15 mg tablet RxNorm: 844979 1/2 Tablet(s) Oral QD 03/10/20 023 Inactive Shingrix (PF) 50 mcg/0.5 mL intramuscular suspension, kit RxNorm: 3508318 Administer 1/2 Milliliter(s) Intramuscular QD one time shingrix step 2 ( step 1 given 11/04/21) WITH needle - Nursing please administer upon arrival and once administered post a bridge message with date of administration, diamond blender, expiration date, and lot# so we can update [facility] 02/18/20 22 022 Inactive dispense with needle Shingrix (PF) 50 mcg/0.5 mL intramuscular suspension, kit RxNorm: 0718236 Administer 1/2 Milliliter(s) Intramuscular QD one time shingrix step 2 ( step 1 given 11/04/21) WITH needle - Nursing please administer upon arrival and once administered post a bridge message with date of administration, diamond blender, expiration date, and lot# so we can update [facility] 02/18/20 22 Inactive dispense with needle polyethylene glycol 3350 17 gram/dose oral powder RxNorm: 866392 Take 17=1 capful Gram(s) Oral QD mix with 4-8oz of liquid 01/08/20 22 023 Inactive take this in addition to BID prn order Lyrica 100 mg capsule RxNorm: 644683 Take 1 Capsule(s) Oral QAM every morning 01/08/20 22 022 Inactive d/c 50mg dose acetaminophen 500 mg tablet RxNorm: 740676 Take 1 Tablet(s) Oral TID 01/08/20 22 022 Inactive d/c PRN order Lyrica 150 mg capsule RxNorm: 892136 Take 1 Capsule(s) Oral QHS every night at bedtime 01/08/20 22 023 Inactive d/c 100mg dose Abilify 5 mg tablet RxNorm: 885875 Take 1 Tablet(s) Oral QD take 1 tab po QD #30 refill 5 dx: MDD 12/12/19 22 022 Inactive Abilify 5 mg tablet RxNorm: 623573 Take 1 Tablet(s) Oral QD take 1 tab po QD #30 refill 5 dx: MDD 12/12/19 22 022 Inactive Novolog Flexpen U-100 Insulin aspart 100 unit/mL (3 mL) subcutaneous RxNorm: 9173367 Inject 42 Unit(s) Subcutaneous TID in addition to sliding scale 12/10/19 22 022 Inactive d/c 36u chlorthalidone 25 mg tablet RxNorm: 189454 Take 1 Tablet(s) Oral QAM every morning 12/10/19 22 023 Inactive pregabalin 50 mg capsule RxNorm: 421626 Take 1 Capsule(s) Oral QAM every morning 11/12/19 22 022 Inactive tetanus-diphtheria toxoids-Td 2 Lf unit-2 Lf unit/0.5 mL IM suspension RxNorm: 139 Take 0.5 Miscellaneous Intramuscular 11/12/19 22 022 Inactive need tdap - nursing to administer upon arrival pregabalin 50 mg capsule RxNorm: 599509 Take 1 Capsule(s) Oral QAM every morning 10/16/19 22 022 Inactive pregabalin 50 mg capsule RxNorm: 143787 Take 1 Capsule(s) Oral QAM every morning 10/16/19 22 022 Inactive pregabalin 50 mg capsule RxNorm: 784459 1 Capsule(s) Oral QAM every morning 10/15/19 22 022 Inactive Shingrix (PF) 50 mcg/0.5 mL intramuscular suspension, kit RxNorm: 1706105 Administer 1/2 Milliliter(s) Intramuscular one time Nursing please administer upon arrival and once administered post a bridge message with date of administration, diamond blender, expiration date, and lot# so we can update [facility]. 10/09/19 22 022 Inactive shingrix step 1 Shingrix (PF) 50 mcg/0.5 mL intramuscular suspension, kit RxNorm: 9424062 Administer 1/2 Milliliter(s) Intramuscular one time Nursing please administer upon arrival and once administered post a bridge message with date of administration, diamond blender, expiration date, and lot# so we can update [facility]. 10/09/19 22 022 Inactive shingrix step 1 cholecalciferol (vitamin D3) 1,250 mcg (50,000 unit) capsule RxNorm: 864089 Take 1 Capsule(s) Oral QW once a [...] aspart 100 unit/mL (3 mL) subcutaneous RxNorm: 8646593 Inject 10 Unit(s) Subcutaneous QHS every night at bedtime with nighttime snack 10/08/19 22 Inactive Shingrix (PF) 50 mcg/0.5 mL intramuscular suspension, kit RxNorm: 5948319 ADMINISTER 2-DOSE SERIES PER CDC GUIDELINES 10/08/19 22 Active Shingrix (PF) 50 mcg/0.5 mL intramuscular suspension, kit RxNorm: 9826839 ADMINISTER 2-DOSE SERIES PER CDC GUIDELINES 10/08/19 22 Inactive Novolog Flexpen U-100 Insulin aspart 100 unit/mL (3 mL) subcutaneous RxNorm: 6819480 Inject 36 Unit(s) Subcutaneous TID in addition to sliding scale 10/08/19 Inactive Novofine Autocover 30 gauge x 1/3 needle RxNorm: Use 1 Miscellaneous UD as directed Use 1 needle as directed to administer insulin 5 times a day Dx:E11.42. 10/03/19 Inactive ok to substitute with any covered alternative pen needle benzoyl peroxide 10 % topical cleanser RxNorm: 679988 Apply 1 Application Topical QD apply to face, wash rinse and dry once daily (may change to QOD if drying) 08/19/19 022 Inactive (%covered by insurance) #60ml refill 11 dx: acne benzoyl peroxide 10 % topical cleanser RxNorm: 867233 Apply 1 Application Topical QD apply to face, wash rinse and dry once daily (may change to QOD if drying) 08/19/19 22 022 Inactive (%covered by insurance) #60ml refill 11 dx: acne benzoyl peroxide 10 % topical cleanser RxNorm: 133155 Apply 1 Application Topical QD apply to face, wash rinse and dry once daily (may change to QOD if drying) 08/19/19 22 022 Inactive (%covered by insurance) #60ml refill 11 dx: acne Lyrica 50 mg capsule RxNorm: 285328 Take 1 Capsule(s) Oral QAM every morning Take 1 capsule by mouth once daily 08/19/19 22 022 Inactive benzoyl peroxide 10 % topical cleanser RxNorm: 074232 Apply 1 Application Topical QD apply to face, wash rinse and dry once daily (may change to QOD if drying) 08/19/19 22 Inactive (%covered by insurance) #60ml refill 11 dx: acne Lyrica 100 mg capsule RxNorm: 845972 Take 1 Capsule(s) Oral QHS every night at bedtime Take 1 capsule by mouth once daily at bedtime 08/19/19 22 022 Inactive Lyrica 100 mg capsule RxNorm: 888198 Take 1 Capsule(s) Oral QHS every night at bedtime Take 1 capsule by mouth once daily at bedtime 08/16/19 22 022 Inactive Lyrica 50 mg capsule RxNorm: 913113 Take 1 Capsule(s) Oral QAM every morning Take 1 capsule by mouth once daily 08/16/19 22 022 Inactive Levemir FlexTouch U-100 Insulin 100 unit/mL (3 mL) subcutaneous pen RxNorm: 716988 Inject 86 Unit(s) Subcutaneous BID 08/05/19 22 022 Inactive d/c 83units BID Lyrica 100 mg capsule RxNorm: 945876 Take 1 Capsule(s) Oral QHS every night at bedtime Take 1 capsule by mouth once daily at bedtime 07/14/19 22 022 Inactive Lyrica 50 mg capsule RxNorm: 872149 Take 1 Capsule(s) Oral QAM every morning Take 1 capsule by mouth once daily 07/14/19 22 022 Inactive Levemir FlexTouch U-100 Insulin 100 unit/mL (3 mL) subcutaneous pen RxNorm: 827544 Inject 83 Unit(s) Subcutaneous BID 07/08/19 22 [...] test strip hydralazine 50 mg tablet RxNorm: 971516 Take 1 Tablet(s) Oral QID 05/05/20 21 022 Inactive venlafaxine ER 225 mg tablet,extended release 24 hr RxNorm: 211672 Take 1 Tablet(s) Oral QD 05/05/20 21 021 Inactive venlafaxine ER 225 mg tablet,extended release 24 hr RxNorm: 466187 Take 1 Tablet(s) Oral QD 05/05/20 21 022 Inactive isosorbide mononitrate ER 30 mg tablet,extended release 24 hr RxNorm: 421580 Take 1 Tablet(s) Oral QD 05/05/20 21 024 Inactive hydralazine 50 mg tablet RxNorm: 886137 Take 1 Tablet(s) Oral QID 05/05/20 21 021 Inactive aspirin 81 mg tablet,delayed release RxNorm: 754516 Take 1 Tablet(s) Oral QD 03/31/20 21 022 Inactive Vitamin D2 1,250 mcg (50,000 unit) capsule RxNorm: 0811078 Take 1 Capsule(s) Oral QW once a week x 12 weeks 03/31/20 022 Inactive Vitamin D2 1,250 mcg (50,000 unit) capsule RxNorm: 8088604 Take 1 Capsule(s) Oral QW once a week 03/31/20 021 Inactive Zetia 10 mg tablet RxNorm: 126272 Take 1 Tablet(s) Oral QD 03/31/20 024 Inactive Zetia 10 mg tablet RxNorm: 613117 Take 1 Tablet(s) Oral QD 03/31/20 Inactive hydralazine 25 mg tablet RxNorm: 805985 Take 1 Tablet(s) Oral QID 03/31/20 021 Inactive hydralazine 25 mg tablet RxNorm: 963334 Take 1 Tablet(s) Oral QID 03/31/20 021 Inactive hydralazine 10 mg tablet RxNorm: 305929 Take 1 Tablet(s) Oral QID 03/03/20 021 Inactive cephalexin 500 mg tablet RxNorm: 586909 Take 1 Tablet(s) Oral QID 02/27/20 021 Inactive cephalexin 500 mg tablet RxNorm: 326471 Take 1 Tablet(s) Oral QID 02/27/20 021 Inactive lisinopril 40 mg tablet RxNorm: 789911 Take 1 Tablet(s) Oral QD 02/11/20 023 Inactive Eliquis 5 mg tablet RxNorm: 7306727 Take 1 Tablet(s) Oral BID 01/05/20 022 Inactive Eliquis 5 mg tablet RxNorm: 9751750 Take 2 Tablet(s) Oral QD 01/01/20 021 Inactive Lyrica 50 mg capsule RxNorm: 191437 Take 1 Capsule(s) Oral QAM every morning 12/24/19 21 021 Inactive Lyrica 100 mg capsule RxNorm: 073019 Take 1 Capsule(s) Oral QHS every night at bedtime 12/24/19 21 021 Inactive clotrimazole 1 % topical cream RxNorm: 845325 Apply to right foot and toes Topical BID 12/04/19 21 023 Inactive metoprolol succinate ER 200 mg tablet,extended release 24 hr RxNorm: 032261 Take 1 Tablet(s) Oral QD 12/04/19 21 023 Inactive ciprofloxacin 500 mg tablet RxNorm: 578540 Take 1 Tablet(s) Oral QD 11/30/19 21 021 Inactive DX ofloxacin otic drops Accu-Chek Guide test strips RxNorm: USE 1 TO CHECK GLUCOSE 4 TIMES DAILY AND NEEDED 11/15/19 21 023 Inactive Blood Glucose Test strips RxNorm: Use 1 Test Strip QID at PRN 11/05/19 21 023 Inactive E11.42 lisinopril 30 mg tablet RxNorm: 599872 Take 1 Tablet(s) Oral QD 10/30/19 021 Inactive lisinopril 20 mg tablet RxNorm: 823301 Take 1 Tablet(s) Oral QD 10/23/19 21 021 Inactive lisinopril 20 mg tablet RxNorm: 058104 Take 1 Tablet(s) Oral QD 10/23/19 21 021 Inactive lisinopril 10 mg tablet RxNorm: 844031 Take 1 Tablet(s) Oral QD 10/02/19 21 021 Inactive icosapent ethyl 1 gram capsule RxNorm: 2145825 Take 2 Capsule(s) (2 gm) Oral BID with meals 09/12/19 21 024 Inactive Okay to dispense one 2gm tab if you have that available. icosapent ethyl 1 gram capsule RxNorm: 8522478 Take 2 Capsule(s) Oral BID 09/12/19 21 021 Inactive Okay to dispense one 2gm tab if you have that available. amlodipine 10 mg tablet RxNorm: 298030 Take 1 Tablet(s) Oral QD 09/04/19 21 022 Inactive aspirin 81 mg tablet,delayed release RxNorm: 803954 Take 1 Tablet(s) Oral QD 09/04/19 21 021 Inactive Levemir FlexTouch U-100 Insulin 100 unit/mL (3 mL) subcutaneous pen RxNorm: 443672 Inject 150 Unit(s) Subcutaneous BID 09/04/19 022 Inactive venlafaxine ER 150 mg tablet,extended release 24 hr RxNorm: 949333 Take 1 Tablet(s) Oral QD 09/04/19 Inactive clotrimazole-betame thasone 1 %-0.05 % topical cream RxNorm: 368089 Apply to rash on red area on left abdomen/chest Topical BID 08/10/19 21 Inactive amlodipine 5 mg tablet RxNorm: 412638 Take 1 Tablet(s) Oral QD 07/31/19 Inactive cephalexin 500 mg tablet RxNorm: 362480 Take 1 Tablet(s) Oral BID BID - Twice Daily 07/31/19 Inactive Start 08/01/20 pantoprazole 40 mg tablet,delayed release RxNorm: 702535 Take 1 Tablet(s) Oral QAM every morning 07/08/19 022 Inactive senna 8.6 mg tablet RxNorm: 021136 Take 1 Tablet(s) Oral QD 07/08/19 022 Inactive carbamazepine 200 mg tablet RxNorm: 542489 Take 1 Tablet(s) Oral BID 07/08/19 022 Inactive clopidogrel 75 mg tablet RxNorm: 506639 Take 1 Tablet(s) Oral QD 07/08/19 021 Inactive Blood Glucose Test strips RxNorm: Use 1 Test Strip QID at PRN 07/08/19 021 Inactive E11.42 Novolog Flexpen U-100 Insulin aspart 100 unit/mL (3 mL) subcutaneous RxNorm: 6234158 Administer per sliding scale Milliliter(s) Subcutaneous TID 151-200: 10 u; 201-250: 20 u; 251-300: 30 u; 301-350: 40 u; 351-400: 50 u. 07/08/19 022 Inactive lisinopril 5 mg tablet RxNorm: 056574 Take 1 Tablet(s) Oral QD 07/08/19 021 Inactive Novolog Flexpen U-100 Insulin aspart 100 unit/mL (3 mL) subcutaneous RxNorm: 2134485 Inject 85 Unit(s) Subcutaneous TID 07/08/19 022 Inactive pravastatin 80 mg tablet RxNorm: 811544 Take 1 Tablet(s) Oral QHS every night at bedtime 07/08/19 023 Inactive clotrimazole 1 % topical cream RxNorm: 907129 Apply to bilateral groin areas Topical BID 07/08/19 022 Inactive metoprolol succinate ER 200 mg tablet,extended release 24 hr RxNorm: 774263 Take 1 Tablet(s) Oral QD 07/08/19 21 021 Inactive Vitamin D3 25 mcg (1,000 unit) tablet RxNorm: 160199 Take 1 Tablet(s) Oral QD 07/08/19 021 Inactive isosorbide dinitrate 30 mg tablet RxNorm: 282446 Take 1 Tablet(s) Oral QD 07/08/19 021 Inactive Levemir FlexTouch U-100 Insulin 100 unit/mL (3 mL) subcutaneous pen RxNorm: 857775 Inject 140 Unit(s) Subcutaneous BID 07/08/19 021 Inactive torsemide 20 mg tablet RxNorm: 683878 Take 1 Tablet(s) Oral QD 07/08/19 023 Inactive venlafaxine 75 mg tablet RxNorm: 746282 Take 1 Tablet(s) Oral QD 07/08/19 021 Inactive acetaminophen 500 mg tablet RxNorm: 545851 Take 1 Tablet(s) Oral TID as needed for headache 06/18/19 021 Inactive acetaminophen 500 mg tablet RxNorm: 667803 Take 1 Tablet(s) Oral TID as needed for headache 06/18/19 021 Inactive Lyrica 100 mg capsule RxNorm: 549528 Take 1 Capsule(s) Oral QHS every night at bedtime 06/11/19 021 Inactive Lyrica 50 mg capsule RxNorm: 663810 Take 1 Capsule(s) Oral QAM every morning 06/10/19 21 021 Inactive hydrocortisone 2.5 % topical cream RxNorm: 389397 Apply to bilateral groin creases Topical BID 05/15/20 20 021 Inactive clotrimazole 1 % topical cream RxNorm: 056787 Apply to bilateral groin areas Topical BID 05/15/20 20 021 Inactive Lyrica 50 mg capsule RxNorm: 820545 Take 1 Capsule(s) Oral QAM every morning 05/14/20 20 020 Inactive Lyrica 100 mg capsule RxNorm: 731533 Take 1 Capsule(s) Oral QHS every night [...] Inactive Nystop 100,000 unit/gram topical powder RxNorm: 416232 Apply to abd folds, under breasts and L side of groin Topical BID x 14 days, then BID PRN 04/08/20 20 020 Inactive dx: yeast dermatitis Lyrica 100 mg capsule RxNorm: 224730 Take 1 Capsule(s) Oral QHS every night at bedtime 03/13/20 20 020 Inactive Lyrica 50 mg capsule RxNorm: 932725 Take 1 Capsule(s) Oral QAM every morning 03/13/20 20 020 Inactive ketoconazole 2 % shampoo RxNorm: 961441 Apply Topical two times a week with showers 03/11/20 20 Inactive cholecalciferol (vitamin D3) 50 mcg (2,000 unit) tablet RxNorm: 203888 Take 1 Tablet(s) Oral QD 03/11/20 021 Inactive Zetia 10 mg tablet RxNorm: 925717 Take 1 Tablet(s) Oral QD 03/07/20 021 Inactive Zetia 10 mg tablet RxNorm: 887933 Take 1 Tablet(s) Oral QD 03/07/20 Inactive Lyrica 50 mg capsule RxNorm: 928104 Take 1 Capsule(s) Oral QAM every morning 02/15/20 Inactive Lyrica 100 mg capsule RxNorm: 091372 Take 1 Capsule(s) Oral QHS every night at bedtime 02/15/20 Inactive Lyrica 100 mg capsule RxNorm: 727586 Take 1 Capsule(s) Oral QHS every night at bedtime 02/15/20 Inactive Lyrica 50 mg capsule RxNorm: 288330 Take 1 Capsule(s) Oral QAM every morning 02/15/20 20 Inactive metoprolol succinate ER 200 mg tablet,extended release 24 hr RxNorm: 170626 Take 1 Tablet(s) Oral QD 08/12/19 23 Active loperamide 2 mg capsule RxNorm: 188261 Take 1 Capsule(s) Oral QID as needed 06/12/19 22 Active hydralazine 50 mg tablet RxNorm: 676114 Take 1 Tablet(s) Oral QID 08/12/19 23 Active venlafaxine ER 75 mg capsule,extended release 24 hr RxNorm: 853403 Take 3 Capsule(s) Oral QD 06/12/19 22 023 Inactive polyethylene glycol 3350 17 gram/dose oral powder RxNorm: 932574 Take 17=1 capful Gram(s) Oral BID as needed mix with 4-8oz of liquid 06/12/19 22 024 Inactive icosapent ethyl 1 gram capsule RxNorm: 0821464 Take 2 Capsule(s) (2 gm) Oral BID with meals 10/07/19 23 023 Inactive Okay to dispense one 2gm tab if you have that available. Levemir FlexTouch U-100 Insulin 100 unit/mL (3 mL) subcutaneous pen RxNorm: 336180 Inject 80 Unit(s) Subcutaneous BID 07/14/19 23 023 Inactive Novolog Flexpen U-100 Insulin aspart 100 unit/mL (3 mL) subcutaneous RxNorm: 1872061 Insert 30 Unit(s) Subcutaneous TID with meals 10/08/19 22 022 Inactive Medication Administered No Medication Administered data Reason For Visit No Reason For Visit data Plan of Care Planned Activity Notes Codes Status Date Referral: [facility] WPtel: [address] , [address] [id number] [place] Referral Records Received 09/21/2022 Referral: [facility] WPtel: [address] [id number] [place] Referral Completed 05/28/2021 Referral: General Cardiology [...] attention.??Sister Jyotsna involved in his care cell# [phone]??Guardian: Don (tapan met in person 09/01/21), now has Lexii (same group as don)Lab Schedule: /September*September (CBC with diff, CMP, A1c) (Novemebr: CBC, CMP, A1c, Lipids, VitD) 10/08/2023
--- OUTSIDE RECORDS SUMMARY | 2023-11-06 05:52 | XMS_ITS | Clinical Summary ---
Author Organization [facility] Address [place], [place] [address] Care Team Providers Care Flarer Name Role Phone Alan Lopez MD Unavailable Nishant Watson MD Unavailable [phone] Pcp, No Primary Care Provider Unavailabl e [...] type 2 diabetes mellitus (HC),Chronic edema JOBST #[id number] LRG FULL CALF KNEE BLACK 20-30 COMPRESSION [...] mg extended release tablet 24 HourIndications:CAD in [place] artery Take 1 tablet by mouth once [...] call MD 0 04/01/2020 Active Insulin Safety [place], Disp, (NOVOFINE AUTOCOVER) 30 gauge x /3Indications:Cecelia [...] at 10 am and no showed. RN Iron Pourer, Juanita Yoo, notified and she will attempt [...] No, referral made to Advance Care Plan Vessel Traffic Officer. Patient has identified Specific Treatment Preferences: No Sophia Méndez RN .................... 07/06/2011 2:30 PM] Specific limits to treatment preferences NOT identified: ASSUME FULL TREATMENT. Last Assessment & Plan: Advance Care Planning: Disease-specific Session Leonid Leahy is a [facility] patient. His PCP is Leandra Limon at [facility]. Advance care planning discussions were completed with Leonid. He identified his sister, Brittany Suggs, as his healthcare agent. Brittany was not present for ACP session. Understanding of Illness and Disease [place]: Leonid identifies his medical condition as what [...] to live well: Daily visit to local [employer] for a pop and to visit and catch up in the news with locals. Leonid obed with serious challenges in his life: Support of his sister, only a phone call away. Helps manage [facility] services. Leonid identifies the following fears [...] and primary care provider. Hard Choices for [employer] booklet was sent to Leonid and his health care agent for review. Leonid requested all information be mailed to his sister and music writer to place call to sister to explain process. Leonid identified the following concerns during his advance care planning session: needing assistance at home to ensure he is managing his medications and treatments to keep going as is and stabilizing. Is followed by Clinic Certified Optician for needed services. Questions identified for his primary care provider: none Documents addressed during this advance care planning session: Health Care Directive completed and scanned into medical record. Statement of Treatment Preferences for advanced illness completed and scanned into the medical record. Recommendations/Plan: Leonid to review Advance Care Plan with Leonid's healthcare agent. Procedure Analyst will be contacting Leonid's [facility] to explain services rendered, Leonid would benefit from: Home Care and/or Hospice when / if appropriate. [facility] services involved, sister supports coordination of medical [...] 02/12/2012 03/17/2013 Medical Home 07/06/2011 10/30/2011 Overview: Sopiha Méndez RN .................... 07/06/2011 2:27 PM Sophia Méndez RN RN Clinic Certified Optician - [facility] [phone] Vitamin D deficiency 01/06/2011 011 Neuropathy 09/25/2010 [...] Department Care Team Description 11/01/2023 Lab Requisition [address] [address] Harrison Munson DNP from Last 3 Months [...] 176.9 kg (390 lb) 07/14/2022 6:10 PM JANITOR CUSTODIAN Height 167.6 cm (5' 6) 07/14/2022 6:10 PM JANITOR CUSTODIAN Body Mass Index 62.95 07/14/2022 6:10 PM JANITOR CUSTODIAN Plan of Treatment Health Maintenance Due Date [...] Kay García Medical Devices Implanted Type Area Certified Optician Device Identifier Shelf Expiration Date Model / Serial / Lot Iol Holt +20 Tecnis Zcb00 - [id number] Implanted:Qty: 1 on 07/15/2022 by Tanner Fuentes MD at [facility] Left: Eye [employer] 06/24/2025 ZCB00 20.0 / [id number] / Iol Holt +20 Tecnis Zcb00 - [id number] Implanted:Qty: 1 on 08/19/2022 by Tanner Fuentes MD at [facility] Right: Eye [employer] 06/24/2025 ZCB00 20.0 / [id number] / Procedures Procedure Name Priority Date/Time Associated Diagnosis Comments BASIC METABOLIC PANEL Routine 11/01/2023 10:10 AM CDT Hypokalemia LIPID PANEL Routine 03/13/2019 2:31 PM CDT Essential hypertriglyceridemia from Last 3 Months or Most Recently Relevant to Health Maintenance Results * (ABNORMAL) BASIC METABOLIC PANEL (11/01/2023 10:10 AM CDT) SODIUM 140 136 - 145 mmol/L 11/01/2023 12:09 PM CDT [facility] POTASSIUM 3.7 3.5 - 5.1 mmol/L 11/01/2023 12:09 PM CDT [facility] CHLORIDE 97(L) 98 - 107 mmol/L 11/01/2023 12:09 PM CDT [facility] CO2,TOTAL 32(H) 22 - 29 mmol/L 11/01/2023 12:09 PM CDT [facility] ANION GAP 11 5 - 18 11/01/2023 12:09 PM CDT [facility] GLUCOSE 397(H) 70 - 99 mg/dL 11/01/2023 12:09 PM CDT [facility] CALCIUM 9.2 8.8 - 10.2 mg/dL 11/01/2023 12:09 PM CDT [facility] BUN 24(H) 8 - 23 mg/dL 11/01/2023 12:09 PM CDT [facility] CREATININE 1.09 0.70 - 1.20 mg/dL 11/01/2023 12:09 PM CDT [facility] BUN/CREAT RATIO 22(H) 10 - 20 12:09 PM CDT [facility] eGFR 76(L) >90 mL/min/1.7 3m2 11/01/2023 12:09 PM CDT [facility] Comment:As of 2021, eG FR is [...] 11:43 AM CDT Harrison Munson DNP CHEMISTRY [facility] [address] [place] [address], * (ABNORMAL) LIPID PANEL (03/13/2019 2:31 PM CDT) CHOLESTEROL,TOTAL 193 100 - 199 mg/dL 03/13/2019 9:25 PM CDT [facility] TRIGLYCERIDES 715(H) <150 mg/dL 03/13/2019 9:25 PM CDT [facility] HDL CHOLESTEROL 29(L) >40 mg/dL 9 9:25 PM CDT [facility] NON-HDL CHOLESTEROL 164(H) <145 mg/dl 03/13/2019 9:25 PM CDT [facility] CHOL/HDL RATIO 6.66(H) <4.50 03/13/2019 9:25 PM CDT [facility] LDL CHOLESTEROL 9 9:25 PM CDT [facility] Comment:Invalid LDL when Tri g >400. PROVIDER ORDERED STATUS RANDOM 03/13/2019 9:25 PM CDT [facility] Blood BLOOD SPECIMEN / Unknown Venipuncture / Unknown 03/13/2019 2:31 PM CDT 03/13/2019 2:31 PM CDT Suellen Sosa MD [facility] 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 PCP - General 07/15/22 Alan Lopez MD Internal Medicine Internal Medicine 11/20/10 Nishant Watson MD [address] [place] [address] Endocrinology 08/15/13
--- OUTSIDE RECORDS SUMMARY | 2023-11-06 05:52 | XMS_ITS | Clinical Summary ---
Author Organization [place] Address [address] [place] [address] Care Team Providers Care Drier And Evaporator Operator Name Role Phone Services, [facility] Physician Primary Care Provi sadia Prince Tobar [...] daily Active cholecalciferol (VITAMIN D3) 1250 mcg (03906 units) capsule Take 1,250 mcg by mouth every 7 days on Wednesdays. 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 Last Filed Vital Signs Vital Sign Reading [...] without heart failure Atherosclerotic heart disease of [place] coronary artery without angina pectoris Body mass index (BMI) 60.0-69.9, adult (H) Chronic kidney disease, unspecified COMPREHENSIVE METABOLIC PANEL Routine 10/15/2023 3:13 PM CDT Hypertensive heart disease without heart failure Atherosclerotic heart disease of [place] coronary artery without angina pectoris Body mass index (BMI) 60.0-69.9, adult (H) Chronic kidney disease, unspecified CBC WITH PLATELETS AND DIFFERENTIAL Routine 10/15/2023 3:13 PM CDT Hypertensive heart disease without heart failure Atherosclerotic heart disease of [place] coronary artery without angina pectoris Body mass index (BMI) 60.0-69.9, adult (H) Chronic kidney disease, unspecified VITAMIN D DEFICIENCY SCREENING Routine 10/15/2023 3:13 PM CDT Hypertensive heart disease without heart failure Atherosclerotic heart disease of [place] coronary artery without angina pectoris Body mass index (BMI) 60.0-69.9, adult (H) Chronic kidney disease, unspecified HEMOGLOBIN A1C Routine 10/15/2023 3:13 PM CDT Hypertensive heart disease without heart failure Atherosclerotic heart disease of [place] coronary artery without angina pectoris Body mass index (BMI) 60.0-69.9, adult (H) Chronic kidney disease, unspecified from Last 3 Months Results * (ABNORMAL) CBC with platelets and differential (10/15/2023 3:13 PM CDT) [facility] WBC Count 5.5 4.0 - 11.0 10e3/uL [...] Munson LAB - BLOOD ORDERABL ES LABORATORY [facility] Acute Care Lab [address] [facility] Lab (1st floor, no room number) [place] [address], [facility] * Vitamin D Deficiency (10/15/2023 3:13 PM CDT) [facility] Vitamin D, Total (25-Hydroxy) 32 20 - 50 ng/mL 10/17/2023 4:24 PM CDT [facility] Comment:optimum levels Blood BLOOD SPECIMEN / Unknown Client Draw / Unknown 10/15/2023 3:13 PM CDT 10/15/2023 4:25 PM CDT Narrative [facility] - 10/17/2023 4:24 PM CDT Season, race, dietary intake, and treatment affect the concentration of 22-uebffuu-Weiowrn D. Values may decrease during winter months and increase during summer months. Vitamin D determination is routinely performed by an immunoassay specific for 25 hydroxyvitamin D3. ??If an individual is on vitamin D2(ergocalciferol) supplementation, please specify 25 [place] vitamin D2 and D3 level determination by LCMSMS test VITD23. Harrison Munson LAB - BLOOD ORDERABL ES [facility] [address] [facility], [address] [place] [address] * (ABNORMAL) Hemoglobin A1c (10/15/2023 3:13 PM CDT) Hemoglobin A1C 10.8(H) <5.7 % 10/15/2023 4:57 PM CDT [facility] Comment: Normal <5.7% Prediabetes 5.7-6.4% ?? Diabetes 6.5% or higher Note: Adopted from ADA consensus guidelines. Blood BLOOD SPECIMEN / Unknown Client Draw / Unknown 10/15/2023 3:13 PM CDT 10/15/2023 4:25 PM CDT Harrison Munson LAB - BLOOD ORDERABL ES LABORATORY [facility] Acute Care Lab [address] [facility] (1st floor, no room number) [place] [address] * (ABNORMAL) Comprehensive metabolic panel (10/15/2023 3:13 [...] Harrison Munson LAB - BLOOD ORDERABL ES [facility] Acute Care Lab [address] Lab (1st floor, no room number) [place] [address], [facility] from Last 3 Months Advance Directives For more information, please contact: [phone] Documents on File Type Date Recorded Patient Salon Shampoo Assistant Expl anation Advance Directives and Living Will [...] yissel nt/ legal decision maker Care Teams Drier And Evaporator Operator Relationship Specialty Start Date End Date Services, [facility] Physician [address] [place] [address], [facility] [address] [place], [place] [id number] PCP - General 05/22/21 Prince Tobar MD [address] [place] [address] Cardiovascular Disease 03/26/22 Prince Tobar MD [address] [place] [address] Assigned Heart and Vascular Provider 05/30/22
--- OUTSIDE RECORDS SUMMARY | 2023-11-06 05:52 | XMS_ITS | Referral Summary ---
Author Organization [place] Address [address] [place] [address] Care Team Providers Care Professor Sculpture Name Role Phone Services, [facility] Physician Primary Care Provi sadia Prince [...] daily Active cholecalciferol (VITAMIN D3) 1250 mcg (47231 units) capsule Take 1,250 mcg by mouth every 7 days on Wednesdays. 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 Last Filed Vital Signs Vital Sign Reading [...] without heart failure Atherosclerotic heart disease of [place] coronary artery without angina pectoris Body mass index (BMI) 60.0-69.9, adult (H) Chronic kidney disease, unspecified COMPREHENSIVE METABOLIC PANEL Routine 10/15/2023 3:13 PM CDT Hypertensive heart disease without heart failure Atherosclerotic heart disease of [place] coronary artery without angina pectoris Body mass index (BMI) 60.0-69.9, adult (H) Chronic kidney disease, unspecified CBC WITH PLATELETS AND DIFFERENTIAL Routine 10/15/2023 3:13 PM CDT Hypertensive heart disease without heart failure Atherosclerotic heart disease of [place] coronary artery without angina pectoris Body mass index (BMI) 60.0-69.9, adult (H) Chronic kidney disease, unspecified VITAMIN D DEFICIENCY SCREENING Routine 10/15/2023 3:13 PM CDT Hypertensive heart disease without heart failure Atherosclerotic heart disease of [place] coronary artery without angina pectoris Body mass index (BMI) 60.0-69.9, adult (H) Chronic kidney disease, unspecified HEMOGLOBIN A1C Routine 10/15/2023 3:13 PM CDT Hypertensive heart disease without heart failure Atherosclerotic heart disease of [place] coronary artery without angina pectoris Body mass [...] LAB - BLOOD ORDERABL ES [facility] LABORATORY [facility] Acute Care Lab [address] [facility] Lab (1st floor, no room number) [place] [address], [facility] * Vitamin D Deficiency (10/15/2023 3:13 PM CDT) [facility] Vitamin D, Total (25-Hydroxy) 32 20 - 50 ng/mL 10/17/2023 4:24 PM CDT [facility] Comment:optimum levels Blood BLOOD SPECIMEN / Unknown Client Draw / Unknown 10/15/2023 3:13 PM CDT 10/15/2023 4:25 PM CDT Narrative [facility] - 10/17/2023 4:24 PM CDT Season, race, dietary intake, and treatment affect the concentration of 83-snfkiif-Omuhzzz D. Values may decrease during winter months and increase during summer months. Vitamin D determination is routinely performed by an immunoassay specific for 25 hydroxyvitamin D3. ??If an individual is on vitamin D2(ergocalciferol) supplementation, please specify 25 [place] vitamin D2 and D3 level determination by LCMSMS test VITD23. Harrison Munson LAB - BLOOD ORDERABL ES U LAB[facility]ATORY [facility] [address] [facility], [address] [place] [address] * (ABNORMAL) Hemoglobin A1c (10/15/2023 3:13 PM CDT) Hemoglobin A1C 10.8(H) <5.7 % 10/15/2023 4:57 PM CDT [facility] Comment: Normal <5.7% Prediabetes 5.7-6.4% ?? Diabetes 6.5% or higher Note: Adopted from ADA consensus guidelines. Blood BLOOD SPECIMEN / Unknown Client Draw / Unknown 10/15/2023 3:13 PM CDT 10/15/2023 4:25 PM CDT Harrison Munson LAB - BLOOD ORDERABL ES LABORATORY [facility] Acute Care Lab [address] [facility] Lab (1st floor, no room number) [place] [address] * (ABNORMAL) Comprehensive metabolic panel [...] Harrison Munson LAB - BLOOD ORDERABL ES [facility] Acute Care Lab [address] Lab (1st floor, no room number) [place] [address], [facility] from Last 3 Months Advance Directives For more information, please contact: [phone] Documents on File Type Date Recorded Patient Boatwright Expl anation Advance Directives and Living Will [...] yissel musa/ legal decision maker Care Teams Professor Sculpture Relationship Specialty Start Date End Date Services, [facility] Physician [address] [place] [address], [address] [address] PCP - General 05/22/21 Prince Tobar MD [address] [place] [address] Cardiovascular Disease 03/26/22 Prince Tobar MD [address] [place] [address] Assigned Heart and Vascular Provider 05/30/22
--- OUTSIDE RECORDS SUMMARY | 2023-11-06 05:52 | XMS_ITS | CCD ---
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, [place] Primary Care Provider Leona vailable Nolan CHLORINE OPERATOR-C, [facility] Chronic Care Management U navailable Summary Purpose DataExchange Insurance Providers Payer name Policy type / Coverage type Covered libertarian ID Effective Begin Date Effective End Date [place] Medicare Part B [id number] Unknown Unknown Medicaid [place] Medicare Part B [id number] Unknown Unknown Family history Sister Brittany Suggs [...] Correction 09/03/[address]: 6117897 Non-Smoker / No History of Smoking 09/02/[address]: [id number] No Alcohol Consum ption 09/02/2020 Allergies, Adverse Reactions, Alerts Substance Reaction Codes Entered Date Inactivated Date Status * NO KNOWN FOOD ALLERGIES Unknown 07/13/2023 No Inactive Date Active LISINOPRIL RxNorm: 50542 02/12/2020 No Inactive Da te Active Metformin HCl Unknown 02/12/2020 No Inactive Cristiano e Active * NO KNOWN ENVIRONMENTAL ALLERGIES Unknown 07/13/2023 No Inactive Date Active Problems Condition Codes Effective Dates Condition St atus Hypokalemia ICD-10: E87.6 ICD-9: 276.8 11/09/2023 Active Lower extremity edema ICD-10: R60.0 ICD-9: 782.3 11/09/2023 Active Major depression, recurrent ICD-10: F33. 9 ICD-9: 296.30 11/09/2023 Active PVD (peripheral vascular disease) ICD-10 : I73.9 ICD-9: 443.9 11/09/2023 Active BMI 60.0-69.9, adult ICD-10: Z68.44 ICD-9: [...] E78. 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-10: Z79.4 [...] Fill Instructions torsemide 20 mg tablet RxNorm: 941601 Take 1 Tablet(s) Oral QD 10/26/19 24 Active potassium chloride ER 20 mEq tablet,extended release RxNorm: 19800522 Take 2 Tablet(s) Oral BID 10/26/19 24 Active torsemide 20 mg tablet RxNorm: 004468 Take 1 Tablet(s) Oral QD 10/26/19 24 Inactive potassium chloride ER 20 mEq tablet,extended release RxNorm: 19800522 Take 2 Tablet(s) Oral BID 10/26/19 24 Inactive Artificial Tears (PF) 0.1 %-0.3 % drops in a dropperette RxNorm: 900744 Apply 1-2 Drop(s) Both eyes BID as needed 09/28/19 24 Active erythromycin 5 mg/gram (0.5 %) eye ointment RxNorm: 138202 Apply 1 Application Both eyes QHS every night at bedtime Instill ~1 cm ribbon into affected eye 09/28/19 24 Inactive Artificial Tears (PF) 0.1 %-0.3 % drops in a dropperette RxNorm: 194576 Apply 1-2 Drop(s) Both eyes BID as needed 09/28/19 24 Inactive erythromycin 5 mg/gram (0.5 %) eye ointment RxNorm: 613918 Apply 1 Application Both eyes QHS every night at bedtime Instill ~1 cm ribbon into affected eye 09/28/19 24 Inactive acetaminophen 500 mg tablet RxNorm: 942491 (MAX APAP:4GM/24HR) Take 1 Tablet(s) Oral TID as needed for pain 09/24/19 24 Inactive carvedilol 25 mg tablet RxNorm: 535651 Take 1 Tablet(s) Oral QD 09/08/19 24 No Stop Date Active pregabalin 100 mg capsule RxNorm: 566173 Take 1 Capsule(s) Oral QAM every morning 09/07/19 24 024 Active rosuvastatin 40 mg tablet RxNorm: 761066 Take 1 Tablet(s) Oral QPM every evening 07/13/19 24 No Stop Date Active ezetimibe 10 mg tablet RxNorm: 869731 Take 1 Tablet(s) Oral QD 07/13/19 24 No Stop Date Active bisacodyl 10 mg rectal suppository RxNorm: 919837 Insert 1 Suppository Rectal QD as needed 07/13/19 24 No Stop Date Active polyethylene glycol 3350 17 gram/dose oral powder RxNorm: 729421 Take 17 Gram(s) Oral BID as needed mix in 4-8ox water 07/13/19 24 No Stop Date Active ketoconazole 2 % shampoo RxNorm: 196481 Apply 1 Application Topical UD as directed 07/13/19 24 No Stop Date Active aripiprazole 15 mg tablet RxNorm: 046528 Take 1/2 Tablet(s) Oral QD 07/13/19 24 No Stop Date Active Ozempic 1 mg/dose (4 mg/3 mL) subcutaneous pen injector RxNorm: 4412482 Inject 1 Milligram(s) Subcutaneous QW once a week 07/13/19 24 No Stop Date Active Guaifenesin AC 10 mg-100 mg/5 mL oral liquid RxNorm: 218937 Take 10 Milliliter(s) Oral Q4H every four hours as needed 07/13/19 24 No Stop Date Active isosorbide mononitrate ER 60 mg tablet,extended release 24 hr RxNorm: 196831 Take 1 Tablet(s) Oral QD 07/13/19 24 No Stop Date Active ammonium lactate 12 % topical cream RxNorm: 641584 Apply 1 Application Topical BID 07/13/19 24 No Stop Date Active hydrocortisone 2.5 % topical cream RxNorm: 275670 Apply 1 Application Topical BID as needed 07/13/19 24 No Stop Date Active rosuvastatin 20 mg sprinkle capsule RxNorm: 5380232 Take 1 Capsule(s) Oral QD 07/13/19 24 No Stop Date Active Vascepa 1 gram capsule RxNorm: 4794117 Take 2 Capsule(s) Oral BID 07/13/19 24 No Stop Date Active venlafaxine ER 75 mg capsule,extended release 24 hr RxNorm: 391744 Take 3 Capsule(s) Oral QD 07/13/19 24 No Stop Date Active Basaglar KwikPen U-100 Insulin 100 unit/mL (3 mL) subcutaneous RxNorm: 7560634 Inject 30U SubQ twice daily 07/07/19 24 025 Active Please dispense one month supply. Radha MendenhallPen U-100 Insulin 100 unit/mL (3 mL) subcutaneous RxNorm: 8721680 Inject 30U SubQ twice daily 07/07/19 24 024 Inactive Please dispense one month supply. pregabalin 150 mg capsule RxNorm: 717724 Take 1 Capsule(s) Oral QHS every night at bedtime 07/05/19 24 024 Active pregabalin 150 mg capsule RxNorm: 900191 Take 1 Capsule(s) Oral QHS every night at bedtime 07/05/19 24 024 Inactive polyethylene glycol 3350 17 gram/dose oral powder RxNorm: 983259 Take 1 Packet Oral QD as needed (1 packet = 17g) mix with 4-8oz of liquid 06/15/19 24 024 Inactive bisacodyl 10 mg rectal suppository RxNorm: 878503 Insert one suppository per rectum once daily as needed for constipation 06/15/19 24 024 Inactive bisacodyl 10 mg rectal suppository RxNorm: 558864 Insert one suppository per rectum once daily as needed for constipation 06/15/19 24 024 Inactive pregabalin 100 mg capsule RxNorm: 688896 Take 1 Capsule(s) Oral QAM every morning 04/27/20 23 024 Inactive Levemir FlexPen 100 unit/mL (3 mL) solution subcutaneous insulin pen RxNorm: 084889 Inject 30 Unit(s) Subcutaneous BID 04/27/20 23 024 Inactive rosuvastatin 40 mg tablet RxNorm: 503745 Take 1 Tablet(s) Oral QPM every evening 04/16/20 23 024 Inactive D/C rosuvastatin 20mg venlafaxine ER 75 mg capsule,extended release 24 hr RxNorm: 707818 Take 3 Capsule(s) Oral QD 04/14/20 23 023 Inactive pregabalin 100 mg capsule RxNorm: 236153 Take 1 Capsule(s) Oral QAM every morning [...] meter clotrimazole 1 % topical cream RxNorm: 974013 Take apply topically to abdominal folds twice daily for 14 days 03/12/20 024 Inactive Ozempic 1 mg/dose (4 mg/3 mL) subcutaneous pen injector RxNorm: 4538690 Inject 1 Milligram(s) Subcutaneous QW once a week 03/11/20 023 Inactive rosuvastatin 20 mg tablet RxNorm: 150002 Take 1 Tablet(s) Oral QD 02/26/20 023 Inactive d/c pravastatin 80mg Ozempic 1 mg/dose (4 mg/3 mL) subcutaneous pen injector RxNorm: 5476726 Inject 1 Milligram(s) Subcutaneous QW once a week 02/20/20 023 Inactive pregabalin 150 mg capsule RxNorm: 736586 Take 1 Capsule(s) Oral HS at bed time 02/19/20 023 Inactive pregabalin 100 mg capsule RxNorm: 658602 Take 1 Capsule(s) Oral QAM every morning 02/18/20 023 Inactive venlafaxine ER 75 mg capsule,extended release 24 hr RxNorm: 305644 Take 3 Capsule(s) Oral QD 02/04/20 23 023 Inactive FreeStyle Chema 2 Sensor kit RxNorm: use as directed 02/04/20 23 023 Inactive FreeStyle Chema 2 Sensor kit RxNorm: use as directed 02/04/20 23 024 Inactive fluconazole 150 mg tablet RxNorm: 027704 Take 1 Tablet(s) Oral on day 3 and on day 6 02/03/20 024 Active chlorthalidone 25 mg tablet RxNorm: 306104 Take 1 Tablet(s) Oral QAM every morning 02/03/20 No Stop Date Active venlafaxine ER 150 mg capsule,extended release 24 hr RxNorm: 823760 Take 1 Capsule(s) Oral QD 02/03/20 023 Inactive acetaminophen 500 mg tablet RxNorm: 050607 1 TABLET ORALLY 3 TIMES DAILY (MAX APAP:4GM/24HR) 12/15/19 023 Inactive clotrimazole 1 % topical cream RxNorm: 053204 apply 1g topically to top of feet and in between toes BID 12/09/19 023 Inactive potassium chloride ER 20 mEq tablet,extended release RxNorm: 305104 Take 1 Tablet(s) Oral BID 12/09/19 024 Inactive d/c 20mEq once daily (sent from hospital) nystatin 100,000 unit/gram topical powder RxNorm: 203393 APPLY TO AFFECTED AREAS TOPICALLY 2 TIMES DAILY 11/21/19 024 Inactive Nystop 100,000 unit/gram topical powder RxNorm: 767975 Apply to abd folds, under breasts and L side of groin Topical BID x 14 days, then BID PRN 11/20/19 023 Inactive dx: yeast dermatitis [place] Ultra Strength 4 %-30 %-10 % topical cream RxNorm: 696047 Apply 1 Gram(s) Topical QID PRN to feet and legs for neuropathic pain 11/11/19 024 Inactive clotrimazole 1 % topical cream RxNorm: 433494 Apply 1/2 Gram(s) Topical BID Apply to affected areas of groin, periarea, and abdominal topically 2 times daily 11/10/19 23 023 Inactive hydrocortisone 2.5 % topical cream RxNorm: 419330 Apply 1/2 Gram(s) Topical BID as needed 11/10/19 024 Inactive Humulin R U-500 (Concentrated) Insulin 500 unit/mL subcutaneous soln RxNorm: 845616 Inject 100 Unit(s) Subcutaneous TID 10/07/19 024 Inactive Levemir FlexPen 100 unit/mL (3 mL) solution subcutaneous insulin pen RxNorm: 890022 Inject 30 Unit(s) Subcutaneous BID 10/07/19 023 Inactive Ozempic 0.25 mg or 0.5 mg (2 mg/3 mL) subcutaneous pen injector RxNorm: 2456570 Inject 1/2 Milligram(s) Subcutaneous QW once a week 10/07/19 024 Inactive aripiprazole 15 mg tablet RxNorm: 927035 1/2 TAB (7.5MG) ORALLY DAILY (DX:MAJOR DEPRESSIVE DISORDER) 09/23/19 023 Inactive Lancets,Thin 28 gauge RxNorm: Use 1 as directed QID 09/15/19 23 024 Inactive Accu-Chek Guide test strips RxNorm: Use 1 Test Strip QID 09/15/19 23 023 Inactive ok to substitute with any covered alternative test strip torsemide 20 mg tablet RxNorm: 532205 Take 1 Tablet(s) Oral BID 09/09/19 024 Inactive d/c once daily dosing carvedilol 25 mg tablet RxNorm: 242935 Take 1 Tablet(s) Oral QD 08/25/19 024 Inactive pregabalin 150 mg capsule RxNorm: 706931 1 Capsule(s) Oral HS at bed time 08/18/19 023 Inactive pregabalin 100 mg capsule RxNorm: 105996 1 Capsule(s) Oral QAM every morning 08/18/19 023 Inactive carvedilol 25 mg tablet RxNorm: 590372 1 Tablet(s) Oral QD 07/28/19 23 023 Inactive lisinopril 20 mg tablet RxNorm: 814174 Give 1 Tablet(s) Oral QD 07/28/19 23 023 Inactive Lyrica 150 mg capsule RxNorm: 737394 Take 1 Capsule(s) Oral QHS every night at bedtime 07/19/19 023 Inactive d/c 100mg dose Diflucan 150 mg tablet RxNorm: 429225 Take 1 Tablet(s) Oral QD repeat on day 3 and 6 07/19/19 23 023 Inactive pregabalin 100 mg capsule RxNorm: 133069 Take 1 Capsule(s) Oral QAM every morning 07/19/19 23 023 Inactive gatifloxacin 0.5 % eye drops RxNorm: 651194 Instill 1 Drop(s) as directed TID Instill 1 drop in to affected eye(s) starting 1 day prior to surgery and continue until gone (do not exceed 4 weeks). 07/13/19 23 023 Inactive carvedilol 25 mg tablet RxNorm: 097805 2 Tablet(s) Oral BID 07/13/19 23 023 Inactive Humulin R Regular U-100 Insulin 100 unit/mL injection solution RxNorm: 845994 85 Unit(s) Injection TID 07/13/19 23 023 Inactive ketorolac 0.5 % eye drops RxNorm: 020478 Instill 1 Drop(s) as directed QID Instill 1 drop into affected eye(s) 4 times daily starting 1 day prior to surgery and continue until gone (do not exceed 4 weeks). 07/13/19 23 023 Inactive Diflucan 150 mg tablet RxNorm: 008639 Take 1 Tablet(s) Oral QD repeat on day 3 and 6 06/30/19 23 023 Inactive Accu-Chek Guide test strips RxNorm: Use 1 Test Strip QID Use 1 test strip to monitor blood glucose 4 times daily and as needed. Dx:E11.42. 06/23/19 23 023 Inactive ok to substitute with any covered alternative test strip dextromethorphan-gu aifenesin 10 mg-100 mg/5 mL oral liquid RxNorm: 126914 Take 10 Milliliter(s) Oral every 4 hours as needed for cough 06/19/19 23 023 Inactive dextromethorphan-gu aifenesin 10 mg-100 mg/5 mL oral liquid RxNorm: 559828 Take 10 Milliliter(s) Oral every 4 hours as needed for cough 06/19/19 23 023 Inactive Lyrica 150 mg capsule RxNorm: 610779 Take 1 Capsule(s) Oral QHS every night at bedtime 06/18/19 023 Inactive d/c 100mg dose aripiprazole 15 mg tablet RxNorm: 754756 /2 TAB (7.5MG) ORALLY DAILY (DX:MAJOR DEPRESSIVE DISORDER) 06/05/19 23 023 Inactive pregabalin 100 mg capsule RxNorm: 784686 1 Capsule(s) Oral QAM every morning 06/02/19 023 Inactive Banophen 50 mg capsule RxNorm: 6563558 Take 1 Capsule(s) Oral Q6H every 6 hours as needed 05/19/19 23 No Stop Date Active Novolog Flexpen U-100 Insulin aspart 100 unit/mL (3 mL) subcutaneous RxNorm: 9848849 Inject 10 Unit(s) Subcutaneous QHS every night at bedtime with nighttime snack 04/08/20 022 Inactive Novolog Flexpen U-100 Insulin aspart 100 unit/mL (3 mL) subcutaneous RxNorm: 6713767 Inject 42 Unit(s) Subcutaneous TID in addition to sliding scale 04/08/20 022 Inactive d/c 36u albuterol sulfate HFA 90 mcg/actuation aerosol inhaler RxNorm: 6479453 Take 2 Puff(s) Inhalation Q4H every four hours as needed as needed for SOB, cough, or wheezing 04/07/20 22 030 Active Banophen 50 mg capsule RxNorm: 6796908 Take 1 Capsule(s) Oral Q6H every 6 hours as needed 04/06/20 023 Inactive diphenhydramine 50 mg tablet RxNorm: 0165307 Take 1 Tablet(s) Oral Q6H every 6 hours as needed 04/06/20 22 022 Inactive diphenhydramine 50 mg tablet RxNorm: 1232082 1 Tablet(s) Oral Q6H every 6 hours as needed 04/06/20 22 022 Inactive Abilify 15 mg tablet RxNorm: 435234 /2 Tablet(s) Oral QD 03/10/20 22 023 Inactive Shingrix (PF) 50 mcg/0.5 mL intramuscular suspension, kit RxNorm: 0091128 Administer 1/2 Milliliter(s) Intramuscular QD one time shingrix step 2 ( step 1 given 11/04/21) WITH needle - Nursing please administer upon arrival and once administered post a bridge message with date of administration, motel maid, expiration date, and lot# so we can update [facility] 02/18/20 22 022 Inactive dispense with needle Shingrix (PF) 50 mcg/0.5 mL intramuscular suspension, kit RxNorm: 0449143 Administer 1/2 Milliliter(s) Intramuscular QD one time shingrix step 2 ( step 1 given 11/04/21) WITH needle - Nursing please administer upon arrival and once administered post a bridge message with date of administration, motel maid, expiration date, and lot# so we can update [facility] 02/18/20 22 022 Inactive dispense with needle polyethylene glycol 3350 17 gram/dose oral powder RxNorm: 957362 Take 17=1 capful Gram(s) Oral QD mix with 4-8oz of liquid 01/08/20 22 023 Inactive take this in addition to BID prn order Lyrica 100 mg capsule RxNorm: 685495 Take 1 Capsule(s) Oral QAM every morning 01/08/20 22 022 Inactive d/c 50mg dose acetaminophen 500 mg tablet RxNorm: 838576 Take 1 Tablet(s) Oral TID 01/08/20 22 022 Inactive d/c PRN order Lyrica 150 mg capsule RxNorm: 278341 Take 1 Capsule(s) Oral QHS every night at bedtime 01/08/20 22 023 Inactive d/c 100mg dose Abilify 5 mg tablet RxNorm: 583916 Take 1 Tablet(s) Oral QD take 1 tab po QD #30 refill 5 dx: MDD 12/12/19 22 022 Inactive Abilify 5 mg tablet RxNorm: 990076 Take 1 Tablet(s) Oral QD take 1 tab po QD #30 refill 5 dx: MDD 12/12/19 22 022 Inactive Novolog Flexpen U-100 Insulin aspart 100 unit/mL (3 mL) subcutaneous RxNorm: 6505803 Inject 42 Unit(s) Subcutaneous TID in addition to sliding scale 12/10/19 22 022 Inactive d/c 36u chlorthalidone 25 mg tablet RxNorm: 489114 Take 1 Tablet(s) Oral QAM every morning 12/10/19 22 023 Inactive pregabalin 50 mg capsule RxNorm: 215237 Take 1 Capsule(s) Oral QAM every morning 11/12/19 22 022 Inactive tetanus-diphtheria toxoids-Td 2 Lf unit-2 Lf unit/0.5 mL IM suspension RxNorm: 139 Take 0.5 Miscellaneous Intramuscular 11/12/19 22 022 Inactive need tdap - nursing to administer upon arrival pregabalin 50 mg capsule RxNorm: 208583 Take 1 Capsule(s) Oral QAM every morning 10/16/19 022 Inactive pregabalin 50 mg capsule RxNorm: 718228 Take 1 Capsule(s) Oral QAM every morning 10/16/19 22 022 Inactive pregabalin 50 mg capsule RxNorm: 400724 1 Capsule(s) Oral QAM every morning 10/15/19 22 022 Inactive Shingrix (PF) 50 mcg/0.5 mL intramuscular suspension, kit RxNorm: 0538274 Administer 1/2 Milliliter(s) Intramuscular one time Nursing please administer upon arrival and once administered post a bridge message with date of administration, motel maid, expiration date, and lot# so we can update [facility]. 10/09/19 22 022 Inactive shingrix step 1 Shingrix (PF) 50 mcg/0.5 mL intramuscular suspension, kit RxNorm: 5824250 Administer 1/2 Milliliter(s) Intramuscular one time Nursing please administer upon arrival and once administered post a bridge message with date of administration, motel maid, expiration date, and lot# so we can update [facility]. 10/09/19 22 022 Inactive shingrix step 1 cholecalciferol (vitamin D3) 1,250 mcg (50,000 unit) capsule RxNorm: 683196 Take 1 Capsule(s) Oral QW once a [...] aspart 100 unit/mL (3 mL) subcutaneous RxNorm: 0153664 Inject 10 Unit(s) Subcutaneous QHS every night at bedtime with nighttime snack 10/08/19 22 Inactive Shingrix (PF) 50 mcg/0.5 mL intramuscular suspension, kit RxNorm: 9786592 ADMINISTER 2-DOSE SERIES PER CDC GUIDELINES 10/08/19 22 Active Shingrix (PF) 50 mcg/0.5 mL intramuscular suspension, kit RxNorm: 4710993 ADMINISTER 2-DOSE SERIES PER CDC GUIDELINES 10/08/19 22 Inactive Novolog Flexpen U-100 Insulin aspart 100 unit/mL (3 mL) subcutaneous RxNorm: 1393752 Inject 36 Unit(s) Subcutaneous TID in addition to sliding scale 10/08/19 22 Inactive Novofine Autocover 30 gauge x 1/3 needle RxNorm: Use 1 Miscellaneous UD as directed Use 1 needle as directed to administer insulin 5 times a day Dx:E11.42. 10/03/19 Inactive ok to substitute with any covered alternative pen needle benzoyl peroxide 10 % topical cleanser RxNorm: 865880 Apply 1 Application Topical QD apply to face, wash rinse and dry once daily (may change to QOD if drying) 08/19/19 22 022 Inactive (%covered by insurance) #60ml refill 11 dx: acne benzoyl peroxide 10 % topical cleanser RxNorm: 641934 Apply 1 Application Topical QD apply to face, wash rinse and dry once daily (may change to QOD if drying) 08/19/19 22 022 Inactive (%covered by insurance) #60ml refill 11 dx: acne benzoyl peroxide 10 % topical cleanser RxNorm: 771801 Apply 1 Application Topical QD apply to face, wash rinse and dry once daily (may change to QOD if drying) 08/19/19 22 022 Inactive (%covered by insurance) #60ml refill 11 dx: acne Lyrica 50 mg capsule RxNorm: 063157 Take 1 Capsule(s) Oral QAM every morning Take 1 capsule by mouth once daily 08/19/19 22 022 Inactive benzoyl peroxide 10 % topical cleanser RxNorm: 691727 Apply 1 Application Topical QD apply to face, wash rinse and dry once daily (may change to QOD if drying) 08/19/19 22 022 Inactive (%covered by insurance) #60ml refill 11 dx: acne Lyrica 100 mg capsule RxNorm: 252726 Take 1 Capsule(s) Oral QHS every night at bedtime Take 1 capsule by mouth once daily at bedtime 08/19/19 22 022 Inactive Lyrica 100 mg capsule RxNorm: 533842 Take 1 Capsule(s) Oral QHS every night at bedtime Take 1 capsule by mouth once daily at bedtime 08/16/19 22 Inactive Lyrica 50 mg capsule RxNorm: 474438 Take 1 Capsule(s) Oral QAM every morning Take 1 capsule by mouth once daily 08/16/19 22 Inactive Levemir FlexTouch U-100 Insulin 100 unit/mL (3 mL) subcutaneous pen RxNorm: 442642 Inject 86 Unit(s) Subcutaneous BID 08/05/19 22 022 Inactive d/c 83units BID Lyrica 100 mg capsule RxNorm: 002127 Take 1 Capsule(s) Oral QHS every night at bedtime Take 1 capsule by mouth once daily at bedtime 07/14/19 22 022 Inactive Lyrica 50 mg capsule RxNorm: 359727 Take 1 Capsule(s) Oral QAM every morning Take 1 capsule by mouth once daily 07/14/19 22 022 Inactive Levemir FlexTouch U-100 Insulin 100 unit/mL (3 mL) subcutaneous pen RxNorm: 132438 Inject 83 Unit(s) Subcutaneous BID 07/08/19 22 [...] test strip hydralazine 50 mg tablet RxNorm: 797218 Take 1 Tablet(s) Oral QID 05/05/20 21 022 Inactive venlafaxine ER 225 mg tablet,extended release 24 hr RxNorm: 437665 Take 1 Tablet(s) Oral QD 05/05/20 21 021 Inactive venlafaxine ER 225 mg tablet,extended release 24 hr RxNorm: 554302 Take 1 Tablet(s) Oral QD 05/05/20 022 Inactive isosorbide mononitrate ER 30 mg tablet,extended release 24 hr RxNorm: 640015 Take 1 Tablet(s) Oral QD 05/05/20 024 Inactive hydralazine 50 mg tablet RxNorm: 512105 Take 1 Tablet(s) Oral QID 05/05/20 021 Inactive aspirin 81 mg tablet,delayed release RxNorm: 394548 Take 1 Tablet(s) Oral QD 03/31/20 022 Inactive Vitamin D2 1,250 mcg (50,000 unit) capsule RxNorm: 0393934 Take 1 Capsule(s) Oral QW once a week x 12 weeks 03/31/20 Inactive Vitamin D2 1,250 mcg (50,000 unit) capsule RxNorm: 5814041 Take 1 Capsule(s) Oral QW once a week 03/31/20 021 Inactive Zetia 10 mg tablet RxNorm: 637207 Take 1 Tablet(s) Oral QD 03/31/20 024 Inactive Zetia 10 mg tablet RxNorm: 462311 Take 1 Tablet(s) Oral QD 03/31/20 021 Inactive hydralazine 25 mg tablet RxNorm: 952304 Take 1 Tablet(s) Oral QID 03/31/20 021 Inactive hydralazine 25 mg tablet RxNorm: 157595 Take 1 Tablet(s) Oral QID 03/31/20 021 Inactive hydralazine 10 mg tablet RxNorm: 617860 Take 1 Tablet(s) Oral QID 03/03/20 021 Inactive cephalexin 500 mg tablet RxNorm: 067280 Take 1 Tablet(s) Oral QID 02/27/20 021 Inactive cephalexin 500 mg tablet RxNorm: 512356 Take 1 Tablet(s) Oral QID 02/27/20 021 Inactive lisinopril 40 mg tablet RxNorm: 510746 Take 1 Tablet(s) Oral QD 02/11/20 023 Inactive Eliquis 5 mg tablet RxNorm: 7130500 Take 1 Tablet(s) Oral BID 01/05/20 022 Inactive Eliquis 5 mg tablet RxNorm: 5062964 Take 2 Tablet(s) Oral QD 01/01/20 21 021 Inactive Lyrica 50 mg capsule RxNorm: 100834 Take 1 Capsule(s) Oral QAM every morning 12/24/19 021 Inactive Lyrica 100 mg capsule RxNorm: 928845 Take 1 Capsule(s) Oral QHS every night at bedtime 12/24/19 021 Inactive clotrimazole 1 % topical cream RxNorm: 120272 Apply to right foot and toes Topical BID 12/04/19 21 023 Inactive metoprolol succinate ER 200 mg tablet,extended release 24 hr RxNorm: 269883 Take 1 Tablet(s) Oral QD 12/04/19 023 Inactive ciprofloxacin 500 mg tablet RxNorm: 490642 Take 1 Tablet(s) Oral QD 11/30/19 021 Inactive DX ofloxacin otic drops Accu-Chek Guide test strips RxNorm: USE 1 TO CHECK GLUCOSE 4 TIMES DAILY AND NEEDED 11/15/19 023 Inactive Blood Glucose Test strips RxNorm: Use 1 Test Strip QID at PRN 11/05/19 21 023 Inactive E11.42 lisinopril 30 mg tablet RxNorm: 643986 Take 1 Tablet(s) Oral QD 10/30/19 021 Inactive lisinopril 20 mg tablet RxNorm: 503335 Take 1 Tablet(s) Oral QD 10/23/19 021 Inactive lisinopril 20 mg tablet RxNorm: 494167 Take 1 Tablet(s) Oral QD 10/23/19 21 021 Inactive lisinopril 10 mg tablet RxNorm: 860079 Take 1 Tablet(s) Oral QD 10/02/19 21 021 Inactive icosapent ethyl 1 gram capsule RxNorm: 2695146 Take 2 Capsule(s) (2 gm) Oral BID with meals 09/12/19 024 Inactive Okay to dispense one 2gm tab if you have that available. icosapent ethyl 1 gram capsule RxNorm: 8549495 Take 2 Capsule(s) Oral BID 09/12/19 21 021 Inactive Okay to dispense one 2gm tab if you have that available. amlodipine 10 mg tablet RxNorm: 040535 Take 1 Tablet(s) Oral QD 09/04/19 21 022 Inactive aspirin 81 mg tablet,delayed release RxNorm: 090819 Take 1 Tablet(s) Oral QD 09/04/19 021 Inactive Levemir FlexTouch U-100 Insulin 100 unit/mL (3 mL) subcutaneous pen RxNorm: 203451 Inject 150 Unit(s) Subcutaneous BID 09/04/19 21 022 Inactive venlafaxine ER 150 mg tablet,extended release 24 hr RxNorm: 935442 Take 1 Tablet(s) Oral QD 09/04/19 021 Inactive clotrimazole-betame thasone 1 %-0.05 % topical cream RxNorm: 180357 Apply to rash on red area on left abdomen/chest Topical BID 08/10/19 Inactive amlodipine 5 mg tablet RxNorm: 052733 Take 1 Tablet(s) Oral QD 07/31/19 21 021 Inactive cephalexin 500 mg tablet RxNorm: 377075 Take 1 Tablet(s) Oral BID BID - Twice Daily 07/31/19 021 Inactive Start 08/01/20 pantoprazole 40 mg tablet,delayed release RxNorm: 317309 Take 1 Tablet(s) Oral QAM every morning 07/08/19 022 Inactive senna 8.6 mg tablet RxNorm: 550536 Take 1 Tablet(s) Oral QD 07/08/19 022 Inactive carbamazepine 200 mg tablet RxNorm: 479105 Take 1 Tablet(s) Oral BID 07/08/19 21 022 Inactive clopidogrel 75 mg tablet RxNorm: 439372 Take 1 Tablet(s) Oral QD 07/08/19 21 021 Inactive Blood Glucose Test strips RxNorm: Use 1 Test Strip QID at PRN 07/08/19 21 Inactive E11.42 Novolog Flexpen U-100 Insulin aspart 100 unit/mL (3 mL) subcutaneous RxNorm: 9877652 Administer per sliding scale Milliliter(s) Subcutaneous TID 151-200: 10 u; 201-250: 20 u; 251-300: 30 u; 301-350: 40 u; 351-400: 50 u. 07/08/19 21 022 Inactive lisinopril 5 mg tablet RxNorm: 232917 Take 1 Tablet(s) Oral QD 07/08/19 21 021 Inactive Novolog Flexpen U-100 Insulin aspart 100 unit/mL (3 mL) subcutaneous RxNorm: 7126804 Inject 85 Unit(s) Subcutaneous TID 07/08/19 022 Inactive pravastatin 80 mg tablet RxNorm: 821834 Take 1 Tablet(s) Oral QHS every night at bedtime 07/08/19 023 Inactive clotrimazole 1 % topical cream RxNorm: 792641 Apply to bilateral groin areas Topical BID 07/08/19 21 022 Inactive metoprolol succinate ER 200 mg tablet,extended release 24 hr RxNorm: 209656 Take 1 Tablet(s) Oral QD 07/08/19 Inactive Vitamin D3 25 mcg (1,000 unit) tablet RxNorm: 391333 Take 1 Tablet(s) Oral QD 07/08/19 021 Inactive isosorbide dinitrate 30 mg tablet RxNorm: 598270 Take 1 Tablet(s) Oral QD 07/08/19 021 Inactive Levemir FlexTouch U-100 Insulin 100 unit/mL (3 mL) subcutaneous pen RxNorm: 886021 Inject 140 Unit(s) Subcutaneous BID 07/08/19 21 021 Inactive torsemide 20 mg tablet RxNorm: 320708 Take 1 Tablet(s) Oral QD 07/08/19 21 023 Inactive venlafaxine 75 mg tablet RxNorm: 901514 Take 1 Tablet(s) Oral QD 07/08/19 21 021 Inactive acetaminophen 500 mg tablet RxNorm: 772002 Take 1 Tablet(s) Oral TID as needed for headache 06/18/19 21 021 Inactive acetaminophen 500 mg tablet RxNorm: 684830 Take 1 Tablet(s) Oral TID as needed for headache 06/18/19 21 021 Inactive Lyrica 100 mg capsule RxNorm: 742587 Take 1 Capsule(s) Oral QHS every night at bedtime 06/11/19 21 021 Inactive Lyrica 50 mg capsule RxNorm: 648399 Take 1 Capsule(s) Oral QAM every morning 06/10/19 21 021 Inactive hydrocortisone 2.5 % topical cream RxNorm: 675650 Apply to bilateral groin creases Topical BID 05/15/20 20 021 Inactive clotrimazole 1 % topical cream RxNorm: 969184 Apply to bilateral groin areas Topical BID 05/15/20 20 021 Inactive Lyrica 50 mg capsule RxNorm: 725295 Take 1 Capsule(s) Oral QAM every morning 05/14/20 20 020 Inactive Lyrica 100 mg capsule RxNorm: 557652 Take 1 Capsule(s) Oral QHS every night [...] Inactive Nystop 100,000 unit/gram topical powder RxNorm: 114145 Apply to abd folds, under breasts and L side of groin Topical BID x 14 days, then BID PRN 04/08/20 20 Inactive dx: yeast dermatitis Lyrica 100 mg capsule RxNorm: 191484 Take 1 Capsule(s) Oral QHS every night at bedtime 03/13/20 20 Inactive Lyrica 50 mg capsule RxNorm: 824638 Take 1 Capsule(s) Oral QAM every morning 03/13/20 20 Inactive ketoconazole 2 % shampoo RxNorm: 884893 Apply Topical two times a week with showers 03/11/20 20 Inactive cholecalciferol (vitamin D3) 50 mcg (2,000 unit) tablet RxNorm: 883197 Take 1 Tablet(s) Oral QD 03/11/20 20 Inactive Zetia 10 mg tablet RxNorm: 695808 Take 1 Tablet(s) Oral QD 03/07/20 20 Inactive Zetia 10 mg tablet RxNorm: 536633 Take 1 Tablet(s) Oral QD 03/07/20 20 Inactive Lyrica 50 mg capsule RxNorm: 791867 Take 1 Capsule(s) Oral QAM every morning 02/15/20 20 Inactive Lyrica 100 mg capsule RxNorm: 989569 Take 1 Capsule(s) Oral QHS every night at bedtime 02/15/20 20 Inactive Lyrica 100 mg capsule RxNorm: 827992 Take 1 Capsule(s) Oral QHS every night at bedtime 02/15/20 20 Inactive Lyrica 50 mg capsule RxNorm: 051508 Take 1 Capsule(s) Oral QAM every morning 02/15/20 20 Inactive metoprolol succinate ER 200 mg tablet,extended release 24 hr RxNorm: 800628 Take 1 Tablet(s) Oral QD 08/12/19 Active loperamide 2 mg capsule RxNorm: 653652 Take 1 Capsule(s) Oral QID as needed 06/12/19 Active hydralazine 50 mg tablet RxNorm: 052444 Take 1 Tablet(s) Oral QID 08/12/19 23 Active venlafaxine ER 75 mg capsule,extended release 24 hr RxNorm: 376674 Take 3 Capsule(s) Oral QD 06/12/19 22 023 Inactive polyethylene glycol 3350 17 gram/dose oral powder RxNorm: 452598 Take 17=1 capful Gram(s) Oral BID as needed mix with 4-8oz of liquid 06/12/19 22 024 Inactive icosapent ethyl 1 gram capsule RxNorm: 2131101 Take 2 Capsule(s) (2 gm) Oral BID with meals 10/07/19 23 023 Inactive Okay to dispense one 2gm tab if you have that available. Levemir FlexTouch U-100 Insulin 100 unit/mL (3 mL) subcutaneous pen RxNorm: 827090 Inject 80 Unit(s) Subcutaneous BID 07/14/19 23 023 Inactive Novolog Flexpen U-100 Insulin aspart 100 unit/mL (3 mL) subcutaneous RxNorm: 0555329 Insert 30 Unit(s) Subcutaneous TID with meals 10/08/19 22 022 Inactive Medication Administered No Medication Administered data Reason For Visit No Reason For Visit data Plan of Care Planned Activity Notes Codes Status Date Referral: [facility] WPtel: [address] [facility], [address] [id number] Referral Records Received 09/21/2022 Referral: [facility] WPtel: [address] [id number] [place] Referral Completed 05/28/2021 Referral: General Cardiology Referral Complet ed 01/03/2021 Referral: General Psychologist Referral Close d Referral: General Psychiatrist Referral Patient/Family Scheduling Appointment Instructions Comment Date Leonid is a?? Male being seen living at [facility] [...] attention.??Sister Jyotsna involved in his care cell# [phone]??Guardian: Don (tapan met in person 09/01/21), now has Lexii (same group as don)Lab Schedule: *September (CBC with diff, CMP, A1c)??March: (CBC, CMP, A1c, Lipids, VitD)10.15.2023: CBC, CMP Na 139, K2.6L, creat 1.45H, eGFR 54L, BG 513H, A1c, VitD 32.??6: BMP Na 140, K3.7, BG 397 H. BUN 24H, Creat 1.09, eGFR 76L.??11.03.2023: ER labs CBC,??CMP K 3.9 Creat 1.0 eGFR 84 BG 395H 11/04/2023
--- OUTSIDE RECORDS SUMMARY | 2023-11-06 05:52 | XMS_ITS | Clinical Summary ---
Author Organization [facility] Address [address] [place] [address] Phone Care Team Providers Care Manager Report Name Role Phone Mellisa Shirley PA-C Primary Care Provider [phone] Allergies Active Allergy Reactions Criticality Noted Date [...] 05/26/2021 Active cholecalciferol (VITAMIN D-3) 1.25 MG (89960 UT) capsule Take 1,250 mcg by mouth [...] age to complete this topic Care Teams Manager Report Relationship Specialty Start Date End Date Mellisa Shirley PA-C PCP - General Physician Sample Steamer 08/31/22
== END 2023-11-03 09:03 | disposition home or self-care (01) ==
LOC: AMB 11-06 05:36
PROVIDERS: Visit Provider Family Medicine
DX: R10.9 Unspecified abdominal pain (principal)
CPT/HCPCS: A0425; A0427

== ENCOUNTER 2023-11-03 09:39 | Emergency (ER) | payer MEDICARE, MEDICAID, SELFPAY ==
[2023-11-03] VITALS (13 sets, daily range): BP systolic 142; BP diastolic 63; PULSE 74–81; RESP 24; TEMP 36.8; O2SAT 93–98; BMI 64.6
--- NOTE | 2023-11-03 09:56 | ED.ABDPAIN ---
HPI - Abdominal Pain General Time Seen by Provider: 09:57 Date Seen: 11/03/23 Chief Complaint: Abdominal Pain Stated Complaint: Abdominal pain Time Seen by Provider: 11/03/23 09:42 Source: patient, EMS, RN notes reviewed and old records reviewed Mode of arrival: EMS Limitations: no limitations History of Present Illness HPI narrative: This 63-year-old male is brought in by ambulance with epigastric pain wrapping around his right side and radiating into his low back for about a week now. His appetite has been unaffected, no nausea or vomiting. He states he urinates all the time, no dysuria or hematuria. He has had no fevers or chills. He states he has had normal bowel movements. Denies any heartburn or regurgitant symptoms. His only abdominal surgery is prior cholecystectomy. He does have underlying diabetes, sugars have been running in the 300s. EMS attempted an IV start but were unsuccessful. MD elicited complaint: abdominal pain Related Data Home Medications ?Medication ?Instructions ?Recorded ?Confirmed amlodipine 10 mg tablet 10 mg PO DAILY 03/07/22 07/24/22 apixaban 5 mg tablet (Eliquis) 5 mg PO BID 03/07/22 07/24/22 aripiprazole 15 mg tablet 7.5 mg PO DAILY 03/07/22 07/24/22 aspirin 81 mg tablet,delayed 81 mg PO DAILY 03/07/22 07/24/22 release carbamazepine 200 mg tablet 200 mg PO BID 03/07/22 07/24/22 chlorthalidone 25 mg tablet 25 mg PO DAILY 03/07/22 07/24/22 ezetimibe 10 mg tablet 10 mg PO DAILY 03/07/22 07/24/22 hydralazine 50 mg tablet 50 mg PO QID 03/07/22 07/24/22 isosorbide mononitrate 30 mg 30 mg PO DAILY 03/07/22 07/24/22 tablet,extended release 24 hr pantoprazole 40 mg tablet,delayed 40 mg PO DAILY 03/07/22 07/24/22 release polyethylene glycol 3350 17 17 g PO DAILY 03/07/22 07/25/22 gram/dose oral powder pravastatin 80 mg tablet 80 mg PO HS 03/07/22 07/24/22 pregabalin 100 mg capsule 100 mg PO QAM 03/07/22 07/24/22 pregabalin 150 mg capsule 150 mg PO HS 03/07/22 07/24/22 torsemide 20 mg tablet 20 mg PO DAILY 03/07/22 07/24/22 venlafaxine 75 mg capsule,extended 225 mg PO DAILY 03/07/22 07/24/22 release 24 hr acetaminophen 500 mg tablet 500 mg PO Q6H 06/13/22 07/24/22 albuterol sulfate 90 mcg/actuation 1 inh inhalation Q4H PRN 06/13/22 07/24/22 aerosol inhaler bronchospasm diphenhydramine HCl 50 mg capsule 50 mg PO Q6H PRN itching 06/13/22 07/24/22 (Banophen) icosapent ethyl 1 gram capsule 2 g PO BID 06/13/22 07/24/22 (Vascepa) insulin regular hum U-500 conc 500 85 unit subcut TID 06/13/22 07/24/22 unit/mL(3 mL) subcut pen (Humulin R U-500 (Conc) Insulin Kwikpen) ketoconazole 2 % shampoo 1 applic topical Q3D 06/13/22 07/24/22 loperamide 2 mg capsule 2 mg PO Q6H PRN loose stool 06/13/22 07/24/22 nystatin 100,000 unit/gram topical 1 applic topical BID PRN 06/13/22 07/24/22 powder sennosides 8.6 mg tablet (senna) 8.6 mg PO DAILY 06/13/22 07/24/22 clotrimazole 1 % topical cream 1 applic topical BID 07/25/22 07/25/22 ergocalciferol (vitamin D2) 1,250 50,000 unit PO WE@07/25/22 07/25/22 mcg (50,000 unit) capsule fluconazole 150 mg tablet 150 mg PO TUFR@07/25/22 07/25/22 gatifloxacin 0.5 % eye drops 1 drp ophthalmic (eye) QID 07/25/22 07/25/22 ketorolac 0.5 % eye drops 1 drp ophthalmic (eye) QID 07/25/22 07/25/22 prednisolone acetate 1 % eye 1 drp ophthalmic (eye) QID 07/25/22 07/25/22 drops,suspension Previous Rx's ?Medication ?Instructions ?Recorded amoxicillin 875 mg-potassium 1 tab PO BID 7 days #14 tabs 07/26/22 clavulanate 125 mg tablet carvedilol 25 mg tablet 25 mg PO Q12H 30 days #60 tabs 07/26/22 lisinopril 20 mg tablet 20 mg PO DAILY 30 days #60 tabs 07/26/22 cephalexin 500 mg capsule 500 mg PO TID 10 days #30 caps 09/14/22 hydrocortisone 2.5 % topical cream 1 applic topical BID PRN #30 grams 09/14/22 nystatin 100,000 unit/gram topical 1 applic topical BID #30 grams 09/14/22 powder potassium chloride 20 mEq oral 20 meq PO DAILY 3 days #3 ea 10/19/22 packet potassium chloride 20 mEq 20 meq PO DAILY #10 tabs 12/08/22 tablet,extended release ammonium lactate 12 % lotion 1 applic topical BID #225 grams 04/01/23 amoxicillin 875 mg-potassium 1 tab PO BID #13 tabs 04/01/23 clavulanate 125 mg tablet azithromycin 250 mg tablet 250 mg PO DAILY 4 days #4 tabs 04/01/23 (Zithromax) Allergies Allergy/AdvReac Type Severity Reaction Status Date / Time lisinopril Allergy Mild Cough Verified 11/03/23 11:51 metformin AdvReac Verified 11/03/23 11:51 Review of Systems Status of ROS Reports: 6 or more systems reviewed and unremarkable except as noted in History and below [facility] Medical History Insulin dependent diabetes mellitus Recurrent deep vein thrombosis (DVT) ?I82.409 - Acute embolism and thrombosis of unspecified deep veins of unspecified lower extremity (ICD-10) Hypertension ?I10 - Essential (primary) hypertension (ICD-10) Coronary artery disease ?I25.10 - Atherosclerotic heart disease of [place] coronary artery without angina pectoris (ICD-10) Hypertriglyceridemia ?E78.1 - Pure hyperglyceridemia (ICD-10) Epilepsy ?G40.909 - Epilepsy, unspecified, not intractable, without status epilepticus (ICD-10) TASHI on CPAP ?G47.33 - Obstructive sleep apnea (adult) (pediatric) (ICD-10) ?Z99.89 - Dependence on other enabling machines and devices (ICD-10) Tachypnea ?R06.82 - Tachypnea, not elsewhere classified (ICD-10) Fever ?R50.9 - Fever, unspecified (ICD-10) CKD (chronic kidney disease) ?N18.9 - Chronic kidney disease, unspecified (ICD-10) Gout ?M10.9 - Gout, unspecified (ICD-10) Major depressive disorder ?F32.9 - Major depressive disorder, single episode, unspecified (ICD-10) Type 2 diabetes mellitus ?E11.9 - Type 2 diabetes mellitus without complications (ICD-10) Obesity ?E66.9 - Obesity, unspecified (ICD-10) Surgical History History of cholecystectomy ?Z90.49 - Acquired absence of other specified parts of digestive tract (ICD-10) Social History Narrative: Lives in a halfway in [place], [place]. Sisters Brittany Suggs ([phone]) and Blanka Mcduffie ([phone]) listed as contacts and medical decision makers. Paperwork from halfway indicates Full Code status. Highest level of school completed/degree received: 12th grade, no diploma Smoking Status: Never smoker Do you use any of these nicotine containing products: None Second hand tobacco smoke exposure: No How often do you have a drink containing alcohol: never How often do you have six or more drinks on one occasion: Never AUDIT-C Alcohol total score: 0 Non-prescribed substance use: denies use Caffeine: No service: No Exam Const: Vital Signs, click to edit/add: Vital Signs - 24 hr 11/03/23 09:49 11/03/23 10:01 11/03/23 10:24 Temperature 98.3 F Pulse Rate 78 Pulse Rate [Pulse Oximeter] 78 Respiratory Rate 24 Blood Pressure [Le ft Upper Arm] 142/63 H Pulse Oximetry 97 95 96 Oxygen Delivery Me thod Room Air 11/03/23 10:30 11/03/23 10:45 11/03/23 11:00 Temperature Pulse Rate 79 80 77 Pulse Rate [Pulse Oximeter] Respiratory Rate Blood Pressure [Le ft Upper Arm] Pulse Oximetry 96 95 94 Oxygen Delivery Me thod 11/03/23 11:15 11/03/23 11:45 11/03/23 12:02 Temperature Pulse Rate 76 81 76 Pulse Rate [Pulse Oximeter] Respiratory Rate Blood Pressure [Le ft Upper Arm] Pulse Oximetry 95 95 94 Oxygen Delivery Me thod 11/03/23 12:15 11/03/23 12:30 11/03/23 12:45 Temperature Pulse Rate 75 78 81 Pulse Rate [Pulse Oximeter] Respiratory Rate Blood Pressure [Le ft Upper Arm] Pulse Oximetry 93 94 98 Oxygen Delivery Me thod 11/03/23 13:00 Temperature Pulse Rate 74 Pulse Rate [Pulse Oximeter] Respiratory Rate Blood Pressure [Le ft Upper Arm] Pulse Oximetry 95 Oxygen Delivery Me thod This 63-year-old male is morbidly obese. He is alert, interactive, no apparent distress. Speaking easily on room air, speech is normal. Sclera clear. Symmetrical facial function. Neck is quite thick but no masses noted. Lungs are clear at his sides in anteriorly, no tachypnea, no wheezing or crackles. CV regular rate and rhythm, somewhat distant heart sounds, do not hear murmur. Abdomen is obese but does have epigastric discomfort on palpation. Body habitus precludes good evaluation for underlying organomegaly or masses but certainly do not feel anything when palpating other than his discomfort. Bowel sounds are present and do not sound abnormal. Documenting provider has reviewed patient's vital signs: yes Course Course ED Course: This 63-year-old obese male with epigastric pain for a week will have baseline labs done, we will stab lotion IV. He declines any need for pain medicine. I do think he needs CT imaging given his underlying comorbidities. Dyspepsia, peptic ulcer disease, ischemic bowel, pancreatitis, possible renal issues including kidney stones are all considered. We will need to confirm that he can be imaged in our CT scanner due to weight constraints. Reevaluation(s) Time of Reevaluation #1: 13:48 Reevaluation #1: Reviewed with patient his CT findings. His CT is showing incidental finding of an umbilical hernia, re-evaluated at this time in he is clinically completely not tender over his umbilical hernia. States he has right upper quadrant pain, feels worse after his CT imaging. We did review the incidental finding of the pulmonary nodule which she should take to his primary provider, will send the CT report with. He may need out patient interval CT imaging to ensure no growth, will leave this to his primary provider to further assess. He has no clinical reason for any abdominal pain that is seen on the CT. He has no emergent condition that we can fine to intervene on today. Will plan to discharge back to his home with follow-up with his primary in his home next week, he states they are coming next week. Vital Signs Vital signs: Initial Vital Signs Temperature 98.3 F 11/03/23 09:49 Temperature Source Temporal Artery Scan 11/03/23 09:49 Pulse Rate 78 11/03/23 09:49 Respiratory Rate 24 11/03/23 09:49 Blood Pressure 142/63 H 11/03/23 09:49 Blood Pressure Mean 89 11/03/23 09:49 Pulse Oximetry 97 11/03/23 09:49 Oxygen Delivery Method Room Air 11/03/23 09:49 Vital Signs Temperature 98.3 F 11/03/23 09:49 Pulse Rate 78 11/03/23 09:49 Respiratory Rate 24 11/03/23 09:49 Blood Pressure 142/63 H 11/03/23 09:49 Pulse Oximetry 97 11/03/23 09:49 Oxygen Delivery Method Room Air 11/03/23 09:49 Temperature 98.3 F 11/03/23 09:49 Pulse Rate 74 11/03/23 13:00 Respiratory Rate 24 11/03/23 09:49 Blood Pressure 142/63 H 11/03/23 09:49 Pulse Oximetry 95 11/03/23 13:00 Oxygen Delivery Method Room Air 11/03/23 09:49 MDM - Abdominal Pain Lab Data Attestation: I reviewed the patient's lab results. Labs: Lab Results 11/03/23 11/03/23 Range/Units 10:14 10:16 WBC 4.17 L (4.50-11.00) K/uL RBC 4.45 (4.30-5.90) m/uL Hgb 12.8 L (13.5-17.5) gm/dL Hct 38.7 (37.0-53.0) % MCV 87 (80-100) fL MCH 29 (26-34) pg MCHC 33 (32-36) gm/dL RDW Coeff of Kaylen 14.7 (11.5-15.5) % Plt Count 145 (140-440) K/uL Neut % (Auto) 52.3 (42.0-72.0) % Lymph % (Auto) 37.2 (20-44) % [place] % (Auto) 7.2 (0.0-11.0) % Eos % (Auto) 3.1 (0.0-7.0) % Baso % (Auto) 0.2 (0.0-3.0) % Neut # (Auto) 2.20 (1.7-7.0) K/uL Lymph # (Auto) 1.60 (0.90-2.90) K/uL [place] # (Auto) 0.30 (0.00-0.90) K/UL Eos # (Auto) 0.10 (0.00-0.50) K/uL Baso # (Auto) 0.00 (0.00-0.30) K/uL Abs Immat Gran (auto) 0.00 (0.00-0.30) K/uL Imm/Tot Granulo (auto) 0.0 % Sodium 137 (135-149) mmol/L Potassium 3.9 (3.6-5.1) mmol/L Chloride 101 (96-114) mmol/L Carbon Dioxide 31 (20-32) mmol/L Anion Gap 5 L (7-15) mEq/L BUN 23 (7-30) mg/dL Creatinine 1.0 (0.5-1.5) mg/dL Estimated Creat Clear 67.34 Estimated GFR 84 ml/min Glucose 395 H* (60-115) mg/dL Lactate 2.0 H (0.5-1.9) mmol/L Calcium 8.2 L (8.4-10.6) mg/dL Total Bilirubin 0.5 (0.1-1.5) mg/dL Direct Bilirubin 0.4 (0.0-0.5) mg/dL AST 42 H (12-35) U/L ALT 30 (4-50) U/L Alkaline Phosphatase 98 (40-150) U/L Troponin I 0.02 (0.01-0.04) ng/mL C-Reactive Protein 1.3 H (0.5-1.0) mg/dL NT-Pro-B Natriuret Pep 134 pg/mL Total Protein 6.5 (6.0-8.3) g/dL Albumin 3.7 (3.3-5.0) g/dL Lipase 58 (23-300) U/L Urine Color Yellow (Yellow) Urine Appearance Clear (Clear) Urine pH 7.0 (5.0-8.5) Ur Specific [place] 1.015 (1.000-1.030) Urine Protein Negative (Negative) Urine Glucose (UA) 3+ A (Negative) Urine Ketones Negative (Negative) Urine Blood Negative (Negative) Urine Nitrite Negative (Negative) Urine Bilirubin Negative (Negative) Urine Urobilinogen 0.2 (0.2-1.0) Ur Leukocyte Esterase Negative (Negative) Urine RBC 0-2 (0-2) Urine WBC 0-2 (0-5) Ur Squamous Epith Cells None (None-Few) Urine Bacteria None (None) Imaging Data CT scan - abdomen: Attestation: I have reviewed the pertinent imaging results. Radiologist's impression: Patient: SKYLAR MCCARTHY Facility:?[facility] Patient ID:?[id number] Site Patient ID:?[id number]. Site :?[id number] Study:?CT-Abdomen/Pelvis W/ 150CC ISOVUE 370-11/03/2023 11:56:13 AM Ordering Physician:?Carrie Lopez Final Report: Indication: EPIGASTRIC PAIN RADIATING TO RT SIDE Technique: CT abdomen/pelvis with IV contrast, 150 mL Isovue 370 Comparison: CT abdomen/pelvis on December 13, 2022 Findings: Lower thorax: Cardiomegaly without pericardial effusion. Coronary artery calcifications. Minimal bibasilar atelectatic changes. Solid sub 4 millimeter pulmonary nodule in the left lower lobe (series number 2, image 16) and left lower lobe calcified granuloma. Abdomen/pelvis: The liver is mildly enlarged measuring 19.0 centimeters in craniocaudal dimension with diffuse hepatic steatosis. No focal hepatic lesions. Nodular hepatic contour suggestive of cirrhotic changes. Status post cholecystectomy. No biliary ductal dilatation. Splenomegaly measuring 16.0 centimeters in craniocaudal dimension. No focal splenic lesions. The bladder and adrenal glands are unremarkable. The kidneys perfused in a normal fashion. There is redemonstration of a simple appearing right renal cyst that measures approximately 9 centimeters in greatest dimension. Additional smaller subcentimeter hypodensities seen in the kidneys bilaterally, too small to characterize, likely benign cysts. No suspicious enhancing renal masses or lesions. No renal calculi or hydroureteronephrosis. The bladder is unremarkable in appearance. The seminal vesicles and prostate are unremarkable. There is no evidence of bowel obstruction or inflammation. The appendix is unremarkable. Redundant sigmoid colon. No free fluid or free air. No abscess. No pathologically enlarged lymph nodes throughout the abdomen and pelvis. No abdominal aortic aneurysm. Minimal calcific atherosclerosis of the aortoiliac system. Soft tissue/musculoskeletal: There is redemonstration of a fat containing umbilical hernia with a minimal amount of internal free fluid and stranding, increased compared to prior exam. Impression: 1. No CT evidence of an acute intra-abdominal or intrapelvic process. 2. There is redemonstration of a fat containing umbilical hernia with a minimal amount of internal free fluid and stranding, increased compared to prior examination, to correlate with signs and symptoms of strangulation. 3. Hepatomegaly with mild diffuse hepatic steatosis and early cirrhotic changes without focal hepatic lesions. 4. Solid sub 4 millimeter pulmonary nodule in the left lower lobe, likely benign. If patient is at high risk for developing lung malignancy recommend CT chest in 12 months; otherwise, no routine follow-up imaging is needed. Please note that all CT scans at this facility use dose modulation, iterative reconstruction, and/or weight-based dosing when appropriate to reduce radiation dose to as low as reasonably achievable. Dictated by Lauro Lewis MD @ 11/03/2023 1:02:35 PM ----- ADDENDUM ----- Report was received by Dr. Butler at 1:04 p.m. central standard time on 11/03/2023. Dictated by Lauro Lewis MD @ Nov 03 2023 1:05PM (Electronic Signature) Discharge Plan Discharge Clinical Impression: Insulin dependent diabetes mellitus Abdominal pain Qualifiers: Abdominal location: epigastric Qualified Code(s): R10.13 - Epigastric pain Patient Disposition: Home w/ Parent or Adult Condition: Stable Instructions: Abdominal Pain (ED) Additional Instructions: CT imaging and labs did not review any indication as to the cause for your symptoms. You are already on pantoprazole 40 mg daily, would continue this. Need to be seen by your primary provider as soon as they are able to see you. Your CT report did show an incidental pulmonary nodule, this should be reviewed by your primary provider and your Risk assessed to see if you need further recommended follow-up CT imaging, Fleischner criteria can be reviewed. If you have ongoing abdominal symptoms, your primary provider can direct further evaluation. Your white blood count was just mildly low and has been is a last 2 times it has been drawn. This should be followed, if your white blood count continues to trend down, may need to see hematology. There was up significant fatty liver seen on the CT, control of your diabetes and weight loss can help reverse this. Your diabetes is not controlled, your primary care provider can help work on tighter control of the diabetes. Your excessive urination is most definitely contributed to by your excessive glucose due to the untreated diabetes. There is significant glucose in the urine but no evidence of infection. Activity Level: Activity as Tolerated Discharge Diet: Diabetic and Heart Healthy (2 gm sodium, low fat) Prescriptions: No Action amlodipine 10 mg tablet 10 mg PO DAILY aripiprazole 15 mg tablet 7.5 mg PO DAILY Eliquis 5 mg tablet 5 mg PO BID aspirin 81 mg tablet,delayed release (DR/EC) 81 mg PO DAILY venlafaxine 75 mg capsule,extended release 24hr 225 mg PO DAILY torsemide 20 mg tablet 20 mg PO DAILY isosorbide mononitrate 30 mg tablet extended release 24 hr 30 mg PO DAILY chlorthalidone 25 mg tablet 25 mg PO DAILY carbamazepine 200 mg tablet 200 mg PO BID pravastatin 80 mg tablet 80 mg PO HS pantoprazole 40 mg tablet,delayed release (DR/EC) 40 mg PO DAILY hydralazine 50 mg tablet 50 mg PO QID Patient Comments: 08,12,16,20 ezetimibe 10 mg tablet 10 mg PO DAILY pregabalin 100 mg capsule 100 mg PO QAM pregabalin 150 mg capsule 150 mg PO HS polyethylene glycol 3350 17 gram/dose powder 17 g PO DAILY Rx Instructions: AND TWICE DAILY NEEDED sennosides [senna] 8.6 mg tablet 8.6 mg PO DAILY ketoconazole 2 % shampoo 1 applic TOPICAL Q3D diphenhydramine HCl [Banophen] 50 mg capsule 50 mg PO Q6H PRN (Reason: itching) loperamide 2 mg capsule 2 mg PO Q6H PRN (Reason: loose stool) acetaminophen 500 mg tablet 500 mg PO Q6H nystatin 100,000 unit/gram powder 1 applic TOPICAL BID PRN albuterol sulfate 90 mcg/actuation HFA aerosol inhaler 1 inh INHALATION Q4H PRN (Reason: bronchospasm) icosapent ethyl [Vascepa] 1 gram capsule 2 g PO BID Humulin R U-500 (Conc) Kwikpen 500 unit/mL (3 mL) insulin pen 85 unit SUBCUT TID potassium chloride 20 mEq tablet extended release 20 meq PO DAILY Qty: 10 2RF clotrimazole 1 % cream 1 applic topical BID Rx Instructions: GROIN,PERIAREA AND ABDOMIN fluconazole 150 mg tablet 150 mg PO TUFR@09 gatifloxacin 0.5 % drops 1 drp ophthalmic (eye) QID ketorolac 0.5 % drops 1 drp ophthalmic (eye) QID Rx Instructions: STOP DATE 08/11/22 prednisolone acetate 1 % drops,suspension 1 drp ophthalmic (eye) QID Rx Instructions: STOP DATE 08/12/22 ergocalciferol (vitamin D2) 1,250 mcg (50,000 unit) capsule 50,000 unit PO WE@09 carvedilol 25 mg Tablet 25 mg PO Q12H 30 Days Qty: 60 0RF lisinopril 20 mg Tablet 20 mg PO DAILY 30 Days Qty: 60 0RF amoxicillin-pot clavulanate 875-125 mg tablet 1 tab PO BID 7 Days Qty: 14 0RF nystatin 100,000 unit/gram powder 1 applic topical BID Qty: 30 1RF hydrocortisone 2.5 % cream 1 applic topical BID PRNQty: 30 1RF cephalexin 500 mg capsule 500 mg PO TID 10 Days Qty: 30 0RF potassium chloride 20 mEq packet 20 meq PO DAILY 3 Days Qty: 3 0RF amoxicillin-pot clavulanate 875-125 mg tablet 1 tab PO BID Qty: 13 0RF azithromycin [Zithromax] 250 mg tablet 250 mg PO DAILY 4 Days Qty: 4 0RF ammonium lactate 12 % lotion 1 applic topical BID Qty: 225 0RF Follow Up/Referrals: Provider,Not a Local [Primary Care Provider] - Stand Alone Forms: [facility] Info Instructions
--- NOTE | 2023-11-03 10:02 | CRLHL7_ITS ---
For Patients: As a result of the Century Cures Act, medical imaging exams and procedure reports are released immediately into your electronic medical record. You may view this report before your referring provider. If you have questions, please contact your health care provider. Indication: EPIGASTRIC PAIN RADIATING TO RT SIDE Technique: CT abdomen/pelvis with IV contrast, 150 mL Isovue 370 Comparison: CT abdomen/pelvis on December 13, 2022 Findings: Lower thorax: Cardiomegaly without pericardial effusion. Coronary artery calcifications. Minimal bibasilar atelectatic changes. Solid sub 4 millimeter pulmonary nodule in the left lower lobe (series number 2, image 16) and left lower lobe calcified granuloma. Abdomen/pelvis: The liver is mildly enlarged measuring 19.0 centimeters in craniocaudal dimension with diffuse hepatic steatosis. No focal hepatic lesions. Nodular hepatic contour suggestive of cirrhotic changes. Status post cholecystectomy. No biliary ductal dilatation. Splenomegaly measuring 16.0 centimeters in craniocaudal dimension. No focal splenic lesions. The bladder and adrenal glands are unremarkable. The kidneys perfused in a normal fashion. There is redemonstration of a simple appearing right renal cyst that measures approximately 9 centimeters in greatest dimension. Additional smaller subcentimeter hypodensities seen in the kidneys bilaterally, too small to characterize, likely benign cysts. No suspicious enhancing renal masses or lesions. No renal calculi or hydroureteronephrosis. The bladder is unremarkable in appearance. The seminal vesicles and prostate are unremarkable. There is no evidence of bowel obstruction or inflammation. The appendix is unremarkable. Redundant sigmoid colon. No free fluid or free air. No abscess. No pathologically enlarged lymph nodes throughout the abdomen and pelvis. No abdominal aortic aneurysm. Minimal calcific atherosclerosis of the aortoiliac system. Soft tissue/musculoskeletal: There is redemonstration of a fat containing umbilical hernia with a minimal amount of internal free fluid and stranding, increased compared to prior exam. Impression: 1. No CT evidence of an acute intra-abdominal or intrapelvic process. 2. There is redemonstration of a fat containing umbilical hernia with a minimal amount of internal free fluid and stranding, increased compared to prior examination, to correlate with signs and symptoms of strangulation. 3. Hepatomegaly with mild diffuse hepatic steatosis and early cirrhotic changes without focal hepatic lesions. 4. Solid sub 4 millimeter pulmonary nodule in the left lower lobe, likely benign. If patient is at high risk for developing lung malignancy recommend CT chest in 12 months; otherwise, no routine follow-up imaging is needed. Please note that all CT scans at this facility use dose modulation, iterative reconstruction, and/or weight-based dosing when appropriate to reduce radiation dose to as low as reasonably achievable. Dictated by Lauro Lewis MD @ 11/03/2023 1:02:35 PM (Electronically Signed)
--- OUTSIDE RECORDS SUMMARY | 2023-11-03 10:22 | XMS_ITS | CCD ---
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-CHarrison Primary Care Provider Len[place] vailable [place] ASSISTANT ACCOUNT MANAGER-C, [facility] Chronic Care Management U navailable Summary Purpose DataExchange Insurance Providers Payer name Policy type / Coverage type Covered green party ID Effective Begin Date Effective End Date [place] B [id number] Unknown Unknown [place] [id number] Unknown Unknown Family history Sister Brittany Suggs [...] Long-Term 09/03/[address]: 0251110 Non-Smoker / No History of Smoking 09/02/[address]: 383898709 No Alcohol Consum ption 09/02/2020 Allergies, Adverse Reactions, Alerts Substance Reaction Codes Entered Date Inactivated Date Status LISINOPRIL RxNorm: 07828 02/12/2020 No Inactive Da te Active Metformin [...] F33. 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 ICD-10: Z79.4 [...] Fill Instructions rosuvastatin 40 mg tablet RxNorm: 231512 Take 1 Tablet(s) Oral QPM every evening 04/16/20 23 024 Inactive D/C rosuvastatin 20mg venlafaxine ER 75 mg capsule,extended release 24 hr RxNorm: 311298 Take 3 Capsule(s) Oral QD 04/14/20 023 Inactive pregabalin 100 mg capsule RxNorm: 670861 Take 1 Capsule(s) Oral QAM every morning [...] meter clotrimazole 1 % topical cream RxNorm: 207123 Take apply topically to abdominal folds twice daily for 14 days 03/12/20 024 Inactive Ozempic 1 mg/dose (4 mg/3 mL) subcutaneous pen injector RxNorm: 5168908 Inject 1 Milligram(s) Subcutaneous QW once a week 03/11/20 023 Inactive rosuvastatin 20 mg tablet RxNorm: 578415 Take 1 Tablet(s) Oral QD 02/26/20 023 Inactive d/c pravastatin 80mg Ozempic 1 mg/dose (4 mg/3 mL) subcutaneous pen injector RxNorm: 3210766 Inject 1 Milligram(s) Subcutaneous QW once a week 02/20/20 023 Inactive pregabalin 150 mg capsule RxNorm: 724542 Take 1 Capsule(s) Oral HS at bed time 02/19/20 23 023 Inactive pregabalin 100 mg capsule RxNorm: 657355 Take 1 Capsule(s) Oral QAM every morning 02/18/20 023 Inactive FreeStyle Chema 2 Sensor kit RxNorm: use as directed 02/04/20 024 Inactive venlafaxine ER 75 mg capsule,extended release 24 hr RxNorm: 916746 Take 3 Capsule(s) Oral QD 02/04/20 23 023 Inactive FreeStyle Chema 2 Sensor kit RxNorm: use as directed 02/04/20 23 023 Inactive fluconazole 150 mg tablet RxNorm: 273942 Take 1 Tablet(s) Oral on day 3 and on day 6 02/03/20 23 024 Active chlorthalidone 25 mg tablet RxNorm: 470860 Take 1 Tablet(s) Oral QAM every morning 02/03/20 No Stop Date Active venlafaxine ER 150 mg capsule,extended release 24 hr RxNorm: 634864 Take 1 Capsule(s) Oral QD 02/03/20 023 Inactive acetaminophen 500 mg tablet RxNorm: 490423 1 TABLET ORALLY 3 TIMES DAILY (MAX APAP:4GM/24HR) 12/15/19 023 Inactive potassium chloride ER 20 mEq tablet,extended release RxNorm: 706609 Take 1 Tablet(s) Oral BID 12/09/19 024 Inactive d/c 20mEq once daily (sent from hospital) clotrimazole 1 % topical cream RxNorm: 354534 apply 1g topically to top of feet and in between toes BID 12/09/19 23 023 Inactive nystatin 100,000 unit/gram topical powder RxNorm: 154179 APPLY TO AFFECTED AREAS TOPICALLY 2 TIMES DAILY 11/21/19 23 024 Inactive Nystop 100,000 unit/gram topical powder RxNorm: 092605 Apply to abd folds, under breasts and L side of groin Topical BID x 14 days, then BID PRN 11/20/19 23 023 Inactive dx: yeast dermatitis Bengay Ultra Strength 4 %-30 %-10 % topical cream RxNorm: 229251 Apply 1 Gram(s) Topical QID PRN to feet and legs for neuropathic pain 11/11/19 23 024 Active hydrocortisone 2.5 % topical cream RxNorm: 916665 Apply 1/2 Gram(s) Topical BID as needed 11/10/19 23 024 Inactive clotrimazole 1 % topical cream RxNorm: 231120 Apply 1/2 Gram(s) Topical BID Apply to affected areas of groin, periarea, and abdominal topically 2 times daily 11/10/19 23 023 Inactive Levemir FlexPen 100 unit/mL (3 mL) solution subcutaneous insulin pen RxNorm: 704044 Inject 30 Unit(s) Subcutaneous BID 10/07/19 023 Inactive Humulin R U-500 (Concentrated) Insulin 500 unit/mL subcutaneous soln RxNorm: 038959 Inject 100 Unit(s) Subcutaneous TID 10/07/19 024 Inactive Ozempic 0.25 mg or 0.5 mg (2 mg/3 mL) subcutaneous pen injector RxNorm: 4597562 Inject 1/2 Milligram(s) Subcutaneous QW once a week 10/07/19 024 Inactive aripiprazole 15 mg tablet RxNorm: 311762 1/2 TAB (7.5MG) ORALLY DAILY (DX:MAJOR DEPRESSIVE DISORDER) 09/23/19 023 Inactive Lancets,Thin 28 gauge RxNorm: Use 1 as directed QID 09/15/19 23 024 Inactive Accu-Chek Guide test strips RxNorm: Use 1 Test Strip QID 09/15/19 23 023 Inactive ok to substitute with any covered alternative test strip torsemide 20 mg tablet RxNorm: 850854 Take 1 Tablet(s) Oral BID 09/09/19 024 Inactive d/c once daily dosing carvedilol 25 mg tablet RxNorm: 667440 Take 1 Tablet(s) Oral QD 08/25/19 23 024 Inactive pregabalin 150 mg capsule RxNorm: 068287 1 Capsule(s) Oral HS at bed time 08/18/19 023 Inactive pregabalin 100 mg capsule RxNorm: 426762 1 Capsule(s) Oral QAM every morning 08/18/19 023 Inactive carvedilol 25 mg tablet RxNorm: 183432 1 Tablet(s) Oral QD 07/28/19 23 023 Inactive lisinopril 20 mg tablet RxNorm: 947724 Give 1 Tablet(s) Oral QD 07/28/19 23 023 Inactive Lyrica 150 mg capsule RxNorm: 220906 Take 1 Capsule(s) Oral QHS every night at bedtime 07/19/19 23 023 Inactive d/c 100mg dose Diflucan 150 mg tablet RxNorm: 573844 Take 1 Tablet(s) Oral QD repeat on day 3 and 6 07/19/19 23 023 Inactive pregabalin 100 mg capsule RxNorm: 868819 Take 1 Capsule(s) Oral QAM every morning 07/19/19 23 023 Inactive gatifloxacin 0.5 % eye drops RxNorm: 031571 Instill 1 Drop(s) as directed TID Instill 1 drop in to affected eye(s) starting 1 day prior to surgery and continue until gone (do not exceed 4 weeks). 07/13/19 23 023 Inactive carvedilol 25 mg tablet RxNorm: 790572 2 Tablet(s) Oral BID 07/13/19 23 023 Inactive Humulin R Regular U-100 Insulin 100 unit/mL injection solution RxNorm: 046615 85 Unit(s) Injection TID 07/13/19 23 023 Inactive ketorolac 0.5 % eye drops RxNorm: 694462 Instill 1 Drop(s) as directed QID Instill 1 drop into affected eye(s) 4 times daily starting 1 day prior to surgery and continue until gone (do not exceed 4 weeks). 07/13/19 23 023 Inactive Diflucan 150 mg tablet RxNorm: 806015 Take 1 Tablet(s) Oral QD repeat on day 3 and 6 06/30/19 23 023 Inactive Accu-Chek Guide test strips RxNorm: Use 1 Test Strip QID Use 1 test strip to monitor blood glucose 4 times daily and as needed. Dx:E11.42. 06/23/19 23 023 Inactive ok to substitute with any covered alternative test strip dextromethorphan-gu aifenesin 10 mg-100 mg/5 mL oral liquid RxNorm: 243739 Take 10 Milliliter(s) Oral every 4 hours as needed for cough 06/19/19 23 023 Inactive dextromethorphan-gu aifenesin 10 mg-100 mg/5 mL oral liquid RxNorm: 248090 Take 10 Milliliter(s) Oral every 4 hours as needed for cough 06/19/19 023 Inactive Lyrica 150 mg capsule RxNorm: 116934 Take 1 Capsule(s) Oral QHS every night at bedtime 06/18/19 023 Inactive d/c 100mg dose aripiprazole 15 mg tablet RxNorm: 193968 1/2 TAB (7.5MG) ORALLY DAILY (DX:MAJOR DEPRESSIVE DISORDER) 06/05/19 023 Inactive pregabalin 100 mg capsule RxNorm: 823854 1 Capsule(s) Oral QAM every morning 06/02/19 023 Inactive Banophen 50 mg capsule RxNorm: 1671223 Take 1 Capsule(s) Oral Q6H every 6 hours as needed 05/19/19 No Stop Date Active Novolog Flexpen U-100 Insulin aspart 100 unit/mL (3 mL) subcutaneous RxNorm: 4329171 Inject 10 Unit(s) Subcutaneous QHS every night at bedtime with nighttime snack 04/08/20 022 Inactive Novolog Flexpen U-100 Insulin aspart 100 unit/mL (3 mL) subcutaneous RxNorm: 4971632 Inject 42 Unit(s) Subcutaneous TID in addition to sliding scale 04/08/20 022 Inactive d/c 36u albuterol sulfate HFA 90 mcg/actuation aerosol inhaler RxNorm: 7373197 Take 2 Puff(s) Inhalation Q4H every four hours as needed as needed for SOB, cough, or wheezing 04/07/20 22 030 Active Banophen 50 mg capsule RxNorm: 4040822 Take 1 Capsule(s) Oral Q6H every 6 hours as needed 04/06/20 023 Inactive diphenhydramine 50 mg tablet RxNorm: 3875121 Take 1 Tablet(s) Oral Q6H every 6 hours as needed 04/06/20 22 022 Inactive diphenhydramine 50 mg tablet RxNorm: 4999372 1 Tablet(s) Oral Q6H every 6 hours as needed 04/06/20 022 Inactive Abilify 15 mg tablet RxNorm: 134342 1/2 Tablet(s) Oral QD 03/10/20 22 023 Inactive Shingrix (PF) 50 mcg/0.5 mL intramuscular suspension, kit RxNorm: 8907248 Administer 1/2 Milliliter(s) Intramuscular QD one time shingrix step 2 ( step 1 given 11/04/21) WITH needle - Nursing please administer upon arrival and once administered post a bridge message with date of administration, merchandising representative, expiration date, and lot# so we can update [facility] 02/18/20 22 022 Inactive dispense with needle Shingrix (PF) 50 mcg/0.5 mL intramuscular suspension, kit RxNorm: 1009466 Administer 1/2 Milliliter(s) Intramuscular QD one time shingrix step 2 ( step 1 given 11/04/21) WITH needle - Nursing please administer upon arrival and once administered post a bridge message with date of administration, merchandising representative, expiration date, and lot# so we can update [facility] 02/18/20 22 022 Inactive dispense with needle polyethylene glycol 3350 17 gram/dose oral powder RxNorm: 643701 Take 17=1 capful Gram(s) Oral QD mix with 4-8oz of liquid 01/08/20 023 Inactive take this in addition to BID prn order Lyrica 100 mg capsule RxNorm: 500511 Take 1 Capsule(s) Oral QAM every morning 01/08/20 22 022 Inactive d/c 50mg dose acetaminophen 500 mg tablet RxNorm: 207103 Take 1 Tablet(s) Oral TID 01/08/20 22 022 Inactive d/c PRN order Lyrica 150 mg capsule RxNorm: 608843 Take 1 Capsule(s) Oral QHS every night at bedtime 01/08/20 22 023 Inactive d/c 100mg dose Abilify 5 mg tablet RxNorm: 091682 Take 1 Tablet(s) Oral QD take 1 tab po QD #30 refill 5 dx: MDD 12/12/19 22 022 Inactive Abilify 5 mg tablet RxNorm: 606768 Take 1 Tablet(s) Oral QD take 1 tab po QD #30 refill 5 dx: MDD 12/12/19 22 022 Inactive Novolog Flexpen U-100 Insulin aspart 100 unit/mL (3 mL) subcutaneous RxNorm: 7312082 Inject 42 Unit(s) Subcutaneous TID in addition to sliding scale 12/10/19 22 022 Inactive d/c 36u chlorthalidone 25 mg tablet RxNorm: 101358 Take 1 Tablet(s) Oral QAM every morning 12/10/19 22 023 Inactive pregabalin 50 mg capsule RxNorm: 998173 Take 1 Capsule(s) Oral QAM every morning 11/12/19 22 022 Inactive tetanus-diphtheria toxoids-Td 2 Lf unit-2 Lf unit/0.5 mL IM suspension RxNorm: 139 Take 0.5 Miscellaneous Intramuscular 11/12/19 022 Inactive need tdap - nursing to administer upon arrival pregabalin 50 mg capsule RxNorm: 932588 Take 1 Capsule(s) Oral QAM every morning 10/16/19 22 022 Inactive pregabalin 50 mg capsule RxNorm: 689813 Take 1 Capsule(s) Oral QAM every morning 10/16/19 22 022 Inactive pregabalin 50 mg capsule RxNorm: 789598 1 Capsule(s) Oral QAM every morning 10/15/19 22 022 Inactive Shingrix (PF) 50 mcg/0.5 mL intramuscular suspension, kit RxNorm: 1308345 Administer 1/2 Milliliter(s) Intramuscular one time Nursing please administer upon arrival and once administered post a bridge message with date of administration, merchandising representative, expiration date, and lot# so we can update [facility]. 10/09/19 22 022 Inactive shingrix step 1 Shingrix (PF) 50 mcg/0.5 mL intramuscular suspension, kit RxNorm: 7862520 Administer 1/2 Milliliter(s) Intramuscular one time Nursing please administer upon arrival and once administered post a bridge message with date of administration, merchandising representative, expiration date, and lot# so we can update [facility]. 10/09/19 22 022 Inactive shingrix step 1 cholecalciferol (vitamin D3) 1,250 mcg (50,000 unit) capsule RxNorm: 854948 Take 1 Capsule(s) Oral QW once a [...] aspart 100 unit/mL (3 mL) subcutaneous RxNorm: 2836774 Inject 10 Unit(s) Subcutaneous QHS every night at bedtime with nighttime snack 10/08/19 22 Inactive Shingrix (PF) 50 mcg/0.5 mL intramuscular suspension, kit RxNorm: 0831694 ADMINISTER 2-DOSE SERIES PER CDC GUIDELINES 10/08/19 22 Active Shingrix (PF) 50 mcg/0.5 mL intramuscular suspension, kit RxNorm: 4257355 ADMINISTER 2-DOSE SERIES PER CDC GUIDELINES 10/08/19 22 Inactive Novolog Flexpen U-100 Insulin aspart 100 unit/mL (3 mL) subcutaneous RxNorm: 7102697 Inject 36 Unit(s) Subcutaneous TID in addition to sliding scale 10/08/19 22 Inactive Novofine Autocover 30 gauge x 1/3 needle RxNorm: Use 1 Miscellaneous UD as directed Use 1 needle as directed to administer insulin 5 times a day Dx:E11.42. 10/03/19 22 Inactive ok to substitute with any covered alternative pen needle benzoyl peroxide 10 % topical cleanser RxNorm: 532498 Apply 1 Application Topical QD apply to face, wash rinse and dry once daily (may change to QOD if drying) 08/19/19 22 Inactive (%covered by insurance) #60ml refill 11 dx: acne benzoyl peroxide 10 % topical cleanser RxNorm: 020793 Apply 1 Application Topical QD apply to face, wash rinse and dry once daily (may change to QOD if drying) 08/19/19 22 022 Inactive (%covered by insurance) #60ml refill 11 dx: acne benzoyl peroxide 10 % topical cleanser RxNorm: 822866 Apply 1 Application Topical QD apply to face, wash rinse and dry once daily (may change to QOD if drying) 08/19/19 22 022 Inactive (%covered by insurance) #60ml refill 11 dx: acne Lyrica 50 mg capsule RxNorm: 408905 Take 1 Capsule(s) Oral QAM every morning Take 1 capsule by mouth once daily 08/19/19 022 Inactive benzoyl peroxide 10 % topical cleanser RxNorm: 049057 Apply 1 Application Topical QD apply to face, wash rinse and dry once daily (may change to QOD if drying) 08/19/19 22 022 Inactive (%covered by insurance) #60ml refill 11 dx: acne Lyrica 100 mg capsule RxNorm: 265301 Take 1 Capsule(s) Oral QHS every night at bedtime Take 1 capsule by mouth once daily at bedtime 08/19/19 22 022 Inactive Lyrica 100 mg capsule RxNorm: 015353 Take 1 Capsule(s) Oral QHS every night at bedtime Take 1 capsule by mouth once daily at bedtime 08/16/19 022 Inactive Lyrica 50 mg capsule RxNorm: 328139 Take 1 Capsule(s) Oral QAM every morning Take 1 capsule by mouth once daily 08/16/19 022 Inactive Levemir FlexTouch U-100 Insulin 100 unit/mL (3 mL) subcutaneous pen RxNorm: 298624 Inject 86 Unit(s) Subcutaneous BID 08/05/19 22 022 Inactive d/c 83units BID Lyrica 100 mg capsule RxNorm: 793226 Take 1 Capsule(s) Oral QHS every night at bedtime Take 1 capsule by mouth once daily at bedtime 07/14/19 22 022 Inactive Lyrica 50 mg capsule RxNorm: 387328 Take 1 Capsule(s) Oral QAM every morning Take 1 capsule by mouth once daily 07/14/19 22 022 Inactive Levemir FlexTouch U-100 Insulin 100 unit/mL (3 mL) subcutaneous pen RxNorm: 116330 Inject 83 Unit(s) Subcutaneous BID 07/08/19 22 [...] 30 mg tablet,extended release 24 hr RxNorm: 177492 Take 1 Tablet(s) Oral QD 12/20/ 024 Inactive hydralazine 50 mg tablet RxNorm: 328609 Take 1 Tablet(s) Oral QID 05/05/20 Inactive venlafaxine ER 225 mg tablet,extended release 24 hr RxNorm: 381647 Take 1 Tablet(s) Oral QD 05/05/20 021 Inactive venlafaxine ER 225 mg tablet,extended release 24 hr RxNorm: 248161 Take 1 Tablet(s) Oral QD 05/05/20 022 Inactive hydralazine 50 mg tablet RxNorm: 219968 Take 1 Tablet(s) Oral QID 05/05/20 21 Inactive aspirin 81 mg tablet,delayed release RxNorm: 278199 Take 1 Tablet(s) Oral QD 03/31/20 022 Inactive Zetia 10 mg tablet RxNorm: 621731 Take 1 Tablet(s) Oral QD 03/31/20 024 Inactive Vitamin D2 1,250 mcg (50,000 unit) capsule RxNorm: 7067318 Take 1 Capsule(s) Oral QW once a week x 12 weeks 03/31/20 022 Inactive Vitamin D2 1,250 mcg (50,000 unit) capsule RxNorm: 6596347 Take 1 Capsule(s) Oral QW once a week 03/31/20 Inactive Zetia 10 mg tablet RxNorm: 268166 Take 1 Tablet(s) Oral QD 03/31/20 021 Inactive hydralazine 25 mg tablet RxNorm: 547955 Take 1 Tablet(s) Oral QID 03/31/20 021 Inactive hydralazine 25 mg tablet RxNorm: 601422 Take 1 Tablet(s) Oral QID 03/31/20 021 Inactive hydralazine 10 mg tablet RxNorm: 874426 Take 1 Tablet(s) Oral QID 03/03/20 021 Inactive cephalexin 500 mg tablet RxNorm: 193994 Take 1 Tablet(s) Oral QID 02/27/20 021 Inactive cephalexin 500 mg tablet RxNorm: 722608 Take 1 Tablet(s) Oral QID 02/27/20 21 021 Inactive lisinopril 40 mg tablet RxNorm: 425945 Take 1 Tablet(s) Oral QD 02/11/20 023 Inactive Eliquis 5 mg tablet RxNorm: 3305447 Take 1 Tablet(s) Oral BID 01/05/20 21 022 Inactive Eliquis 5 mg tablet RxNorm: 0575059 Take 2 Tablet(s) Oral QD 01/01/20 21 021 Inactive Lyrica 50 mg capsule RxNorm: 958803 Take 1 Capsule(s) Oral QAM every morning 12/24/19 021 Inactive Lyrica 100 mg capsule RxNorm: 861378 Take 1 Capsule(s) Oral QHS every night at bedtime 12/24/19 021 Inactive clotrimazole 1 % topical cream RxNorm: 075042 Apply to right foot and toes Topical BID 12/04/19 21 023 Inactive metoprolol succinate ER 200 mg tablet,extended release 24 hr RxNorm: 717083 Take 1 Tablet(s) Oral QD 12/04/19 023 Inactive ciprofloxacin 500 mg tablet RxNorm: 992414 Take 1 Tablet(s) Oral QD 11/30/19 21 021 Inactive DX ofloxacin otic drops Accu-Chek Guide test strips RxNorm: USE 1 TO CHECK GLUCOSE 4 TIMES DAILY AND NEEDED 11/15/19 21 023 Inactive Blood Glucose Test strips RxNorm: Use 1 Test Strip QID at PRN 11/05/19 21 023 Inactive E11.42 lisinopril 30 mg tablet RxNorm: 575813 Take 1 Tablet(s) Oral QD 10/30/19 021 Inactive lisinopril 20 mg tablet RxNorm: 565506 Take 1 Tablet(s) Oral QD 10/23/19 021 Inactive lisinopril 20 mg tablet RxNorm: 145120 Take 1 Tablet(s) Oral QD 10/23/19 21 021 Inactive lisinopril 10 mg tablet RxNorm: 509830 Take 1 Tablet(s) Oral QD 10/02/19 21 021 Inactive icosapent ethyl 1 gram capsule RxNorm: 8654320 Take 2 Capsule(s) (2 gm) Oral BID with meals 09/12/19 21 024 Inactive Okay to dispense one 2gm tab if you have that available. icosapent ethyl 1 gram capsule RxNorm: 5875649 Take 2 Capsule(s) Oral BID 09/12/19 21 021 Inactive Okay to dispense one 2gm tab if you have that available. amlodipine 10 mg tablet RxNorm: 042500 Take 1 Tablet(s) Oral QD 09/04/19 022 Inactive aspirin 81 mg tablet,delayed release RxNorm: 177678 Take 1 Tablet(s) Oral QD 09/04/19 021 Inactive Levemir FlexTouch U-100 Insulin 100 unit/mL (3 mL) subcutaneous pen RxNorm: 263232 Inject 150 Unit(s) Subcutaneous BID 09/04/19 21 022 Inactive venlafaxine ER 150 mg tablet,extended release 24 hr RxNorm: 133232 Take 1 Tablet(s) Oral QD 09/04/19 021 Inactive clotrimazole-betame thasone 1 %-0.05 % topical cream RxNorm: 701127 Apply to rash on red area on left abdomen/chest Topical BID 08/10/19 21 Inactive amlodipine 5 mg tablet RxNorm: 314683 Take 1 Tablet(s) Oral QD 07/31/19 21 021 Inactive cephalexin 500 mg tablet RxNorm: 657676 Take 1 Tablet(s) Oral BID BID - Twice Daily 07/31/19 21 021 Inactive Start 08/01/20 pantoprazole 40 mg tablet,delayed release RxNorm: 809421 Take 1 Tablet(s) Oral QAM every morning 07/08/19 022 Inactive senna 8.6 mg tablet RxNorm: 334596 Take 1 Tablet(s) Oral QD 07/08/19 21 022 Inactive carbamazepine 200 mg tablet RxNorm: 681048 Take 1 Tablet(s) Oral BID 07/08/19 21 022 Inactive clopidogrel 75 mg tablet RxNorm: 276403 Take 1 Tablet(s) Oral QD 07/08/19 021 Inactive Blood Glucose Test strips RxNorm: Use 1 Test Strip QID at PRN 07/08/19 21 Inactive E11.42 Novolog Flexpen U-100 Insulin aspart 100 unit/mL (3 mL) subcutaneous RxNorm: 6884028 Administer per sliding scale Milliliter(s) Subcutaneous TID 151-200: 10 u; 201-250: 20 u; 251-300: 30 u; 301-350: 40 u; 351-400: 50 u. 07/08/19 21 022 Inactive lisinopril 5 mg tablet RxNorm: 086830 Take 1 Tablet(s) Oral QD 07/08/19 Inactive Novolog Flexpen U-100 Insulin aspart 100 unit/mL (3 mL) subcutaneous RxNorm: 8001397 Inject 85 Unit(s) Subcutaneous TID 07/08/19 Inactive pravastatin 80 mg tablet RxNorm: 406448 Take 1 Tablet(s) Oral QHS every night at bedtime 07/08/19 023 Inactive clotrimazole 1 % topical cream RxNorm: 477547 Apply to bilateral groin areas Topical BID 07/08/19 022 Inactive metoprolol succinate ER 200 mg tablet,extended release 24 hr RxNorm: 603642 Take 1 Tablet(s) Oral QD 07/08/19 21 Inactive Vitamin D3 25 mcg (1,000 unit) tablet RxNorm: 928228 Take 1 Tablet(s) Oral QD 07/08/19 21 021 Inactive isosorbide dinitrate 30 mg tablet RxNorm: 230108 Take 1 Tablet(s) Oral QD 07/08/19 21 021 Inactive Levemir FlexTouch U-100 Insulin 100 unit/mL (3 mL) subcutaneous pen RxNorm: 137720 Inject 140 Unit(s) Subcutaneous BID 07/08/19 21 021 Inactive torsemide 20 mg tablet RxNorm: 195119 Take 1 Tablet(s) Oral QD 07/08/19 21 023 Inactive venlafaxine 75 mg tablet RxNorm: 208321 Take 1 Tablet(s) Oral QD 07/08/19 21 021 Inactive acetaminophen 500 mg tablet RxNorm: 916388 Take 1 Tablet(s) Oral TID as needed for headache 06/18/19 21 021 Inactive acetaminophen 500 mg tablet RxNorm: 637656 Take 1 Tablet(s) Oral TID as needed for headache 06/18/19 21 021 Inactive Lyrica 100 mg capsule RxNorm: 892394 Take 1 Capsule(s) Oral QHS every night at bedtime 06/11/19 21 021 Inactive Lyrica 50 mg capsule RxNorm: 520381 Take 1 Capsule(s) Oral QAM every morning 06/10/19 21 021 Inactive hydrocortisone 2.5 % topical cream RxNorm: 145754 Apply to bilateral groin creases Topical BID 05/15/20 20 021 Inactive clotrimazole 1 % topical cream RxNorm: 442799 Apply to bilateral groin areas Topical BID 05/15/20 20 021 Inactive Lyrica 50 mg capsule RxNorm: 744859 Take 1 Capsule(s) Oral QAM every morning 05/14/20 20 020 Inactive Lyrica 100 mg capsule RxNorm: 663665 Take 1 Capsule(s) Oral QHS every night [...] Inactive Nystop 100,000 unit/gram topical powder RxNorm: 828850 Apply to abd folds, under breasts and L side of groin Topical BID x 14 days, then BID PRN 04/08/20 20 Inactive dx: yeast dermatitis Lyrica 100 mg capsule RxNorm: 583809 Take 1 Capsule(s) Oral QHS every night at bedtime 03/13/20 20 Inactive Lyrica 50 mg capsule RxNorm: 665660 Take 1 Capsule(s) Oral QAM every morning 03/13/20 20 Inactive ketoconazole 2 % shampoo RxNorm: 274494 Apply Topical two times a week with showers 03/11/20 20 Inactive cholecalciferol (vitamin D3) 50 mcg (2,000 unit) tablet RxNorm: 214163 Take 1 Tablet(s) Oral QD 03/11/20 20 021 Inactive Zetia 10 mg tablet RxNorm: 561760 Take 1 Tablet(s) Oral QD 03/07/20 20 021 Inactive Zetia 10 mg tablet RxNorm: 539371 Take 1 Tablet(s) Oral QD 03/07/20 20 Inactive Lyrica 50 mg capsule RxNorm: 123556 Take 1 Capsule(s) Oral QAM every morning 02/15/20 20 Inactive Lyrica 100 mg capsule RxNorm: 582456 Take 1 Capsule(s) Oral QHS every night at bedtime 02/15/20 20 Inactive Lyrica 100 mg capsule RxNorm: 860891 Take 1 Capsule(s) Oral QHS every night at bedtime 02/15/20 20 Inactive Lyrica 50 mg capsule RxNorm: 291038 Take 1 Capsule(s) Oral QAM every morning 02/15/20 20 Inactive polyethylene glycol 3350 17 gram/dose oral powder RxNorm: 320255 Take 17=1 capful Gram(s) Oral BID as needed mix with 4-8oz of liquid 06/12/19 22 024 Inactive metoprolol succinate ER 200 mg tablet,extended release 24 hr RxNorm: 252358 Take 1 Tablet(s) Oral QD 08/12/19 23 Active loperamide 2 mg capsule RxNorm: 275891 Take 1 Capsule(s) Oral QID as needed 06/12/19 22 Active hydralazine 50 mg tablet RxNorm: 942580 Take 1 Tablet(s) Oral QID 08/12/19 23 Active venlafaxine ER 75 mg capsule,extended release 24 hr RxNorm: 999345 Take 3 Capsule(s) Oral QD 06/12/19 22 023 Inactive icosapent ethyl 1 gram capsule RxNorm: 2406868 Take 2 Capsule(s) (2 gm) Oral BID with meals 10/07/19 23 023 Inactive Okay to dispense one 2gm tab if you have that available. Levemir FlexTouch U-100 Insulin 100 unit/mL (3 mL) subcutaneous pen RxNorm: 085199 Inject 80 Unit(s) Subcutaneous BID 07/14/19 23 023 Inactive Novolog Flexpen U-100 Insulin aspart 100 unit/mL (3 mL) subcutaneous RxNorm: 3089669 Insert 30 Unit(s) Subcutaneous TID with meals 10/08/19 22 022 Inactive Medication Administered No Medication Administered data Reason For Visit No Reason For Visit data Plan of Care Planned Activity Notes Codes Status Date Referral: [facility] WPtel: [id number] [address]el[address]aran[address], [address] [id number] [place] Referral Records Received 09/21/2022 Referral: [facility] WPtel: [id number] [id number] [place] Referral Completed 05/28/2021 Referral: General Cardiology Referral Complet ed 01/03/2021 Referral: General Psychologist Referral Close d Referral: General Psychiatrist Referral Patient/Family Scheduling Appointment Instructions Comment Date Leonid is a?? Male [...] attention.??Sister Jyotsna involved in his care cell# [phone]??Guardian: Don (tapan met in person 09/01/21), now has Lexii (same group as don)Lab Schedule: /September*September (CBC with diff, CMP, A1c) (Novemebr: CBC, CMP, A1c, Lipids, VitD) 10/08/2023
--- OUTSIDE RECORDS SUMMARY | 2023-11-03 10:22 | XMS_ITS | CCD ---
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 Administrative Assistant Front Desk Name Role Phone Arpit [facility]RA[facility] Primary Care Provider Leona vailable Vilas METAL ENGRA[facility]-C, [facility] U navailable Summary Purpose DataExchange Insurance Providers Payer name Policy type / Coverage type Covered republican ID Effective Begin Date Effective End Date [place] [id number] Unknown [place] [id number] Unknown Unknown Family history Sister Brittany Suggs [...] Shelter 09/03/[address]: 1465973 Non-Smoker / No History of Smoking 09/02/[address]: [id number] No Alcohol Consum ption 09/02/2020 Allergies, Adverse Reactions, Alerts Substance Reaction Codes Entered Date Inactivated Date Status LISINOPRIL RxNorm: 10716 02/12/2020 No Inactive Da te Active Metformin HCl Unknown 02/12/2020 No Inactive Cristiano e Active Problems Condition Codes Effective Dates Condition St atus Coronary artery disease invo lving yurok coronary [...] Fill Instructions pregabalin 100 mg capsule RxNorm: 525825 Take 1 Capsule(s) Oral QAM every morning 04/27/20 23 024 Inactive Levemir FlexPen 100 unit/mL (3 mL) solution subcutaneous insulin pen RxNorm: 118126 Inject 30 Unit(s) Subcutaneous BID 04/27/20 024 Inactive rosuvastatin 40 mg tablet RxNorm: 552557 Take 1 Tablet(s) Oral QPM every evening 04/16/20 024 Inactive D/C rosuvastatin 20mg venlafaxine ER 75 mg capsule,extended release 24 hr RxNorm: 220727 Take 3 Capsule(s) Oral QD 04/14/20 023 Inactive pregabalin 100 mg capsule RxNorm: 390980 Take 1 Capsule(s) Oral QAM every morning [...] meter clotrimazole 1 % topical cream RxNorm: 321986 Take apply topically to abdominal folds twice daily for 14 days 03/12/20 024 Inactive Ozempic 1 mg/dose (4 mg/3 mL) subcutaneous pen injector RxNorm: 5826769 Inject 1 Milligram(s) Subcutaneous QW once a week 03/11/20 023 Inactive rosuvastatin 20 mg tablet RxNorm: 006437 Take 1 Tablet(s) Oral QD 02/26/20 023 Inactive d/c pravastatin 80mg Ozempic 1 mg/dose (4 mg/3 mL) subcutaneous pen injector RxNorm: 4518106 Inject 1 Milligram(s) Subcutaneous QW once a week 02/20/20 23 023 Inactive pregabalin 150 mg capsule RxNorm: 363017 Take 1 Capsule(s) Oral HS at bed time 02/19/20 23 023 Inactive pregabalin 100 mg capsule RxNorm: 096952 Take 1 Capsule(s) Oral QAM every morning 02/18/20 23 023 Inactive FreeStyle Chema 2 Sensor kit RxNorm: use as directed 02/04/20 23 024 Inactive venlafaxine ER 75 mg capsule,extended release 24 hr RxNorm: 340889 Take 3 Capsule(s) Oral QD 02/04/20 23 023 Inactive FreeStyle Chema 2 Sensor kit RxNorm: use as directed 02/04/20 23 023 Inactive fluconazole 150 mg tablet RxNorm: 359879 Take 1 Tablet(s) Oral on day 3 and on day 6 02/03/20 23 024 Active chlorthalidone 25 mg tablet RxNorm: 689534 Take 1 Tablet(s) Oral QAM every morning 02/03/20 23 No Stop Date Active venlafaxine ER 150 mg capsule,extended release 24 hr RxNorm: 954127 Take 1 Capsule(s) Oral QD 02/03/20 23 023 Inactive acetaminophen 500 mg tablet RxNorm: 403932 1 TABLET ORALLY 3 TIMES DAILY (MAX APAP:4GM/24HR) 12/15/19 23 023 Inactive potassium chloride ER 20 mEq tablet,extended release RxNorm: 466391 Take 1 Tablet(s) Oral BID 12/09/19 23 024 Inactive d/c 20mEq once daily (sent from hospital) clotrimazole 1 % topical cream RxNorm: 906743 apply 1g topically to top of feet and in between toes BID 12/09/19 23 023 Inactive nystatin 100,000 unit/gram topical powder RxNorm: 127936 APPLY TO AFFECTED AREAS TOPICALLY 2 TIMES DAILY 11/21/19 23 024 Inactive Nystop 100,000 unit/gram topical powder RxNorm: 153090 Apply to abd folds, under breasts and L side of groin Topical BID x 14 days, then BID PRN 11/20/19 23 023 Inactive dx: yeast dermatitis Bengay Ultra Strength 4 %-30 %-10 % topical cream RxNorm: 001639 Apply 1 Gram(s) Topical QID PRN to feet and legs for neuropathic pain 11/11/19 23 024 Active hydrocortisone 2.5 % topical cream RxNorm: 293238 Apply 1/2 Gram(s) Topical BID as needed 11/10/19 024 Inactive clotrimazole 1 % topical cream RxNorm: 754578 Apply 1/2 Gram(s) Topical BID Apply to affected areas of groin, periarea, and abdominal topically 2 times daily 11/10/19 023 Inactive Levemir FlexPen 100 unit/mL (3 mL) solution subcutaneous insulin pen RxNorm: 565152 Inject 30 Unit(s) Subcutaneous BID 10/07/19 023 Inactive Humulin R U-500 (Concentrated) Insulin 500 unit/mL subcutaneous soln RxNorm: 535841 Inject 100 Unit(s) Subcutaneous TID 10/07/19 024 Inactive Ozempic 0.25 mg or 0.5 mg (2 mg/3 mL) subcutaneous pen injector RxNorm: 6894320 Inject 1/2 Milligram(s) Subcutaneous QW once a week 10/07/19 024 Inactive aripiprazole 15 mg tablet RxNorm: 545936 1/2 TAB (7.5MG) ORALLY DAILY (DX:MAJOR DEPRESSIVE DISORDER) 09/23/19 023 Inactive Lancets,Thin 28 gauge RxNorm: Use 1 as directed QID 09/15/19 23 024 Inactive Accu-Chek Guide test strips RxNorm: Use 1 Test Strip QID 09/15/19 23 023 Inactive ok to substitute with any covered alternative test strip torsemide 20 mg tablet RxNorm: 225673 Take 1 Tablet(s) Oral BID 09/09/19 23 024 Inactive d/c once daily dosing carvedilol 25 mg tablet RxNorm: 439872 Take 1 Tablet(s) Oral QD 08/25/19 23 024 Inactive pregabalin 150 mg capsule RxNorm: 960250 1 Capsule(s) Oral HS at bed time 08/18/19 023 Inactive pregabalin 100 mg capsule RxNorm: 785498 1 Capsule(s) Oral QAM every morning 08/18/1903/2 023 Inactive carvedilol 25 mg tablet RxNorm: 069139 1 Tablet(s) Oral QD 07/28/19 23 023 Inactive lisinopril 20 mg tablet RxNorm: 711687 Give 1 Tablet(s) Oral QD 07/28/19 23 023 Inactive Lyrica 150 mg capsule RxNorm: 898187 Take 1 Capsule(s) Oral QHS every night at bedtime 07/19/19 023 Inactive d/c 100mg dose Diflucan 150 mg tablet RxNorm: 461185 Take 1 Tablet(s) Oral QD repeat on day 3 and 6 07/19/19 23 023 Inactive pregabalin 100 mg capsule RxNorm: 315233 Take 1 Capsule(s) Oral QAM every morning 07/19/19 023 Inactive gatifloxacin 0.5 % eye drops RxNorm: 840340 Instill 1 Drop(s) as directed TID Instill 1 drop in to affected eye(s) starting 1 day prior to surgery and continue until gone (do not exceed 4 weeks). 07/13/19 23 023 Inactive carvedilol 25 mg tablet RxNorm: 477511 2 Tablet(s) Oral BID 07/13/19 023 Inactive Humulin R Regular U-100 Insulin 100 unit/mL injection solution RxNorm: 530742 85 Unit(s) Injection TID 07/13/19 23 023 Inactive ketorolac 0.5 % eye drops RxNorm: 591301 Instill 1 Drop(s) as directed QID Instill 1 drop into affected eye(s) 4 times daily starting 1 day prior to surgery and continue until gone (do not exceed 4 weeks). 07/13/19 23 023 Inactive Diflucan 150 mg tablet RxNorm: 563032 Take 1 Tablet(s) Oral QD repeat on day 3 and 6 06/30/19 23 023 Inactive Accu-Chek Guide test strips RxNorm: Use 1 Test Strip QID Use 1 test strip to monitor blood glucose 4 times daily and as needed. Dx:E11.42. 02/12/03 22 023 Inactive ok to substitute with any covered alternative test strip dextromethorphan-gu aifenesin 10 mg-100 mg/5 mL oral liquid RxNorm: 298906 Take 10 Milliliter(s) Oral every 4 hours as needed for cough 06/19/19 023 Inactive dextromethorphan-gu aifenesin 10 mg-100 mg/5 mL oral liquid RxNorm: 539057 Take 10 Milliliter(s) Oral every 4 hours as needed for cough 06/19/19 023 Inactive Lyrica 150 mg capsule RxNorm: 707481 Take 1 Capsule(s) Oral QHS every night at bedtime 06/18/19 023 Inactive d/c 100mg dose aripiprazole 15 mg tablet RxNorm: 132037 /2 TAB (7.5MG) ORALLY DAILY (DX:MAJOR DEPRESSIVE DISORDER) 06/05/19 023 Inactive pregabalin 100 mg capsule RxNorm: 488950 1 Capsule(s) Oral QAM every morning 06/02/19 023 Inactive Banophen 50 mg capsule RxNorm: 2591638 Take 1 Capsule(s) Oral Q6H every 6 hours as needed 05/19/19 23 No Stop Date Active Novolog Flexpen U-100 Insulin aspart 100 unit/mL (3 mL) subcutaneous RxNorm: 0709088 Inject 10 Unit(s) Subcutaneous QHS every night at bedtime with nighttime snack 04/08/20 022 Inactive Novolog Flexpen U-100 Insulin aspart 100 unit/mL (3 mL) subcutaneous RxNorm: 8179500 Inject 42 Unit(s) Subcutaneous TID in addition to sliding scale 04/08/20 022 Inactive d/c 36u albuterol sulfate HFA 90 mcg/actuation aerosol inhaler RxNorm: 3930237 Take 2 Puff(s) Inhalation Q4H every four hours as needed as needed for SOB, cough, or wheezing 04/07/20 030 Active Banophen 50 mg capsule RxNorm: 8492601 Take 1 Capsule(s) Oral Q6H every 6 hours as needed 04/06/20 023 Inactive diphenhydramine 50 mg tablet RxNorm: 7435402 Take 1 Tablet(s) Oral Q6H every 6 hours as needed 04/06/20 22 022 Inactive diphenhydramine 50 mg tablet RxNorm: 3012620 1 Tablet(s) Oral Q6H every 6 hours as needed 04/06/20 22 022 Inactive Abilify 15 mg tablet RxNorm: 664606 1/2 Tablet(s) Oral QD 03/10/20 023 Inactive Shingrix (PF) 50 mcg/0.5 mL intramuscular suspension, kit RxNorm: 3391072 Administer 1/2 Milliliter(s) Intramuscular QD one time shingrix step 2 ( step 1 given 11/04/21) WITH needle - Nursing please administer upon arrival and once administered post a bridge message with date of administration, vb net developer, expiration date, and lot# so we can update [facility] 02/18/20 22 Inactive dispense with needle Shingrix (PF) 50 mcg/0.5 mL intramuscular suspension, kit RxNorm: 4058945 Administer 1/2 Milliliter(s) Intramuscular QD one time shingrix step 2 ( step 1 given 11/04/21) WITH needle - Nursing please administer upon arrival and once administered post a bridge message with date of administration, vb net developer, expiration date, and lot# so we can update [facility] 02/18/20 22 022 Inactive dispense with needle polyethylene glycol 3350 17 gram/dose oral powder RxNorm: 156278 Take 17=1 capful Gram(s) Oral QD mix with 4-8oz of liquid 01/08/20 22 023 Inactive take this in addition to BID prn order Lyrica 100 mg capsule RxNorm: 554614 Take 1 Capsule(s) Oral QAM every morning 01/08/20 22 022 Inactive d/c 50mg dose acetaminophen 500 mg tablet RxNorm: 819655 Take 1 Tablet(s) Oral TID 01/08/20 22 022 Inactive d/c PRN order Lyrica 150 mg capsule RxNorm: 017566 Take 1 Capsule(s) Oral QHS every night at bedtime 01/08/20 22 023 Inactive d/c 100mg dose Abilify 5 mg tablet RxNorm: 079048 Take 1 Tablet(s) Oral QD take 1 tab po QD #30 refill 5 dx: MDD 12/12/19 22 022 Inactive Abilify 5 mg tablet RxNorm: 524285 Take 1 Tablet(s) Oral QD take 1 tab po QD #30 refill 5 dx: MDD 12/12/19 22 022 Inactive Novolog Flexpen U-100 Insulin aspart 100 unit/mL (3 mL) subcutaneous RxNorm: 6810460 Inject 42 Unit(s) Subcutaneous TID in addition to sliding scale 12/10/19 22 022 Inactive d/c 36u chlorthalidone 25 mg tablet RxNorm: 334037 Take 1 Tablet(s) Oral QAM every morning 12/10/19 22 023 Inactive pregabalin 50 mg capsule RxNorm: 799387 Take 1 Capsule(s) Oral QAM every morning 11/12/19 22 022 Inactive tetanus-diphtheria toxoids-Td 2 Lf unit-2 Lf unit/0.5 mL IM suspension RxNorm: 139 Take 0.5 Miscellaneous Intramuscular 11/12/19 22 022 Inactive need tdap - nursing to administer upon arrival pregabalin 50 mg capsule RxNorm: 123712 Take 1 Capsule(s) Oral QAM every morning 10/16/19 22 022 Inactive pregabalin 50 mg capsule RxNorm: 626905 Take 1 Capsule(s) Oral QAM every morning 10/16/19 22 022 Inactive pregabalin 50 mg capsule RxNorm: 326082 1 Capsule(s) Oral QAM every morning 10/15/19 22 022 Inactive Shingrix (PF) 50 mcg/0.5 mL intramuscular suspension, kit RxNorm: 9647515 Administer 1/2 Milliliter(s) Intramuscular one time Nursing please administer upon arrival and once administered post a bridge message with date of administration, vb net developer, expiration date, and lot# so we can update [facility]. 10/09/19 22 022 Inactive shingrix step 1 Shingrix (PF) 50 mcg/0.5 mL intramuscular suspension, kit RxNorm: 9873205 Administer 1/2 Milliliter(s) Intramuscular one time Nursing please administer upon arrival and once administered post a bridge message with date of administration, vb net developer, expiration date, and lot# so we can update [facility]. 10/09/19 22 Inactive shingrix step 1 cholecalciferol (vitamin D3) 1,250 mcg (50,000 unit) capsule RxNorm: 336904 Take 1 Capsule(s) Oral QW once a [...] aspart 100 unit/mL (3 mL) subcutaneous RxNorm: 2408279 Inject 10 Unit(s) Subcutaneous QHS every night at bedtime with nighttime snack 10/08/19 22 Inactive Shingrix (PF) 50 mcg/0.5 mL intramuscular suspension, kit RxNorm: 9043514 ADMINISTER 2-DOSE SERIES PER CDC GUIDELINES 10/08/19 22 022 Active Shingrix (PF) 50 mcg/0.5 mL intramuscular suspension, kit RxNorm: 5178544 ADMINISTER 2-DOSE SERIES PER CDC GUIDELINES 10/08/19 22 022 Inactive Novolog Flexpen U-100 Insulin aspart 100 unit/mL (3 mL) subcutaneous RxNorm: 9185081 Inject 36 Unit(s) Subcutaneous TID in addition to sliding scale 10/08/19 22 022 Inactive Novofine Autocover 30 gauge x 1/3 needle RxNorm: Use 1 Miscellaneous UD as directed Use 1 needle as directed to administer insulin 5 times a day Dx:E11.42. 05 022 Inactive ok to substitute with any covered alternative pen needle benzoyl peroxide 10 % topical cleanser RxNorm: 566593 Apply 1 Application Topical QD apply to face, wash rinse and dry once daily (may change to QOD if drying) 08/19/19 22 022 Inactive (%covered by insurance) #60ml refill 11 dx: acne benzoyl peroxide 10 % topical cleanser RxNorm: 705476 Apply 1 Application Topical QD apply to face, wash rinse and dry once daily (may change to QOD if drying) 08/19/19 022 Inactive (%covered by insurance) #60ml refill 11 dx: acne benzoyl peroxide 10 % topical cleanser RxNorm: 159475 Apply 1 Application Topical QD apply to face, wash rinse and dry once daily (may change to QOD if drying) 08/19/19 022 Inactive (%covered by insurance) #60ml refill 11 dx: acne Lyrica 50 mg capsule RxNorm: 136006 Take 1 Capsule(s) Oral QAM every morning Take 1 capsule by mouth once daily 08/19/19 022 Inactive benzoyl peroxide 10 % topical cleanser RxNorm: 905405 Apply 1 Application Topical QD apply to face, wash rinse and dry once daily (may change to QOD if drying) 08/19/19 022 Inactive (%covered by insurance) #60ml refill 11 dx: acne Lyrica 100 mg capsule RxNorm: 831696 Take 1 Capsule(s) Oral QHS every night at bedtime Take 1 capsule by mouth once daily at bedtime 08/19/19 22 022 Inactive Lyrica 100 mg capsule RxNorm: 719400 Take 1 Capsule(s) Oral QHS every night at bedtime Take 1 capsule by mouth once daily at bedtime 08/16/19 Inactive Lyrica 50 mg capsule RxNorm: 861754 Take 1 Capsule(s) Oral QAM every morning Take 1 capsule by mouth once daily 08/16/19 22 Inactive Levemir FlexTouch U-100 Insulin 100 unit/mL (3 mL) subcutaneous pen RxNorm: 071037 Inject 86 Unit(s) Subcutaneous BID 08/05/19 22 022 Inactive d/c 83units BID Lyrica 100 mg capsule RxNorm: 636486 Take 1 Capsule(s) Oral QHS every night at bedtime Take 1 capsule by mouth once daily at bedtime 07/14/19 22 022 Inactive Lyrica 50 mg capsule RxNorm: 759557 Take 1 Capsule(s) Oral QAM every morning Take 1 capsule by mouth once daily 07/14/19 22 022 Inactive Levemir FlexTouch U-100 Insulin 100 unit/mL (3 mL) subcutaneous pen RxNorm: 609586 Inject 83 Unit(s) Subcutaneous BID 07/08/19 22 [...] 30 mg tablet,extended release 24 hr RxNorm: 571032 Take 1 Tablet(s) Oral QD 05/05/20 21 024 Inactive hydralazine 50 mg tablet RxNorm: 538031 Take 1 Tablet(s) Oral QID 05/05/20 21 022 Inactive venlafaxine ER 225 mg tablet,extended release 24 hr RxNorm: 271014 Take 1 Tablet(s) Oral QD 05/05/20 021 Inactive venlafaxine ER 225 mg tablet,extended release 24 hr RxNorm: 615493 Take 1 Tablet(s) Oral QD 05/05/20 022 Inactive hydralazine 50 mg tablet RxNorm: 923681 Take 1 Tablet(s) Oral QID 05/05/20 Inactive aspirin 81 mg tablet,delayed release RxNorm: 936017 Take 1 Tablet(s) Oral QD 03/31/20 022 Inactive Zetia 10 mg tablet RxNorm: 104496 Take 1 Tablet(s) Oral QD 03/31/20 024 Inactive Vitamin D2 1,250 mcg (50,000 unit) capsule RxNorm: 4116357 Take 1 Capsule(s) Oral QW once a week x 12 weeks 03/31/20 022 Inactive Vitamin D2 1,250 mcg (50,000 unit) capsule RxNorm: 4671476 Take 1 Capsule(s) Oral QW once a week 03/31/20 021 Inactive Zetia 10 mg tablet RxNorm: 031581 Take 1 Tablet(s) Oral QD 03/31/20 021 Inactive hydralazine 25 mg tablet RxNorm: 386433 Take 1 Tablet(s) Oral QID 03/31/20 21 021 Inactive hydralazine 25 mg tablet RxNorm: 748384 Take 1 Tablet(s) Oral QID 03/31/20 021 Inactive hydralazine 10 mg tablet RxNorm: 736011 Take 1 Tablet(s) Oral QID 03/03/20 021 Inactive cephalexin 500 mg tablet RxNorm: 230647 Take 1 Tablet(s) Oral QID 02/27/20 021 Inactive cephalexin 500 mg tablet RxNorm: 414565 Take 1 Tablet(s) Oral QID 02/27/20 021 Inactive lisinopril 40 mg tablet RxNorm: 412197 Take 1 Tablet(s) Oral QD 02/11/20 023 Inactive Eliquis 5 mg tablet RxNorm: 4081144 Take 1 Tablet(s) Oral BID 01/05/20 022 Inactive Eliquis 5 mg tablet RxNorm: 9547820 Take 2 Tablet(s) Oral QD 01/01/20 21 021 Inactive Lyrica 50 mg capsule RxNorm: 594972 Take 1 Capsule(s) Oral QAM every morning 12/24/19 21 021 Inactive Lyrica 100 mg capsule RxNorm: 347403 Take 1 Capsule(s) Oral QHS every night at bedtime 12/24/19 021 Inactive clotrimazole 1 % topical cream RxNorm: 932365 Apply to right foot and toes Topical BID 12/04/19 21 023 Inactive metoprolol succinate ER 200 mg tablet,extended release 24 hr RxNorm: 237594 Take 1 Tablet(s) Oral QD 12/04/19 023 Inactive ciprofloxacin 500 mg tablet RxNorm: 831733 Take 1 Tablet(s) Oral QD 11/30/19 21 021 Inactive DX ofloxacin otic drops Accu-Chek Guide test strips RxNorm: USE 1 TO CHECK GLUCOSE 4 TIMES DAILY AND NEEDED 11/15/19 21 023 Inactive Blood Glucose Test strips RxNorm: Use 1 Test Strip QID at PRN 11/05/19 21 023 Inactive E11.42 lisinopril 30 mg tablet RxNorm: 550691 Take 1 Tablet(s) Oral QD 10/30/19 21 021 Inactive lisinopril 20 mg tablet RxNorm: 810079 Take 1 Tablet(s) Oral QD 10/23/19 21 021 Inactive lisinopril 20 mg tablet RxNorm: 551361 Take 1 Tablet(s) Oral QD 10/23/19 21 021 Inactive lisinopril 10 mg tablet RxNorm: 408044 Take 1 Tablet(s) Oral QD 10/02/19 21 021 Inactive icosapent ethyl 1 gram capsule RxNorm: 9596400 Take 2 Capsule(s) (2 gm) Oral BID with meals 09/12/19 21 024 Inactive Okay to dispense one 2gm tab if you have that available. icosapent ethyl 1 gram capsule RxNorm: 9681187 Take 2 Capsule(s) Oral BID 09/12/19 021 Inactive Okay to dispense one 2gm tab if you have that available. amlodipine 10 mg tablet RxNorm: 763056 Take 1 Tablet(s) Oral QD 09/04/19 21 022 Inactive aspirin 81 mg tablet,delayed release RxNorm: 623905 Take 1 Tablet(s) Oral QD 09/04/19 21 021 Inactive Levemir FlexTouch U-100 Insulin 100 unit/mL (3 mL) subcutaneous pen RxNorm: 968738 Inject 150 Unit(s) Subcutaneous BID 09/04/19 21 022 Inactive venlafaxine ER 150 mg tablet,extended release 24 hr RxNorm: 784041 Take 1 Tablet(s) Oral QD 09/04/19 21 021 Inactive clotrimazole-betame thasone 1 %-0.05 % topical cream RxNorm: 438468 Apply to rash on red area on left abdomen/chest Topical BID 08/10/19 21 021 Inactive amlodipine 5 mg tablet RxNorm: 525398 Take 1 Tablet(s) Oral QD 07/31/19 21 021 Inactive cephalexin 500 mg tablet RxNorm: 833395 Take 1 Tablet(s) Oral BID BID - Twice Daily 07/31/19 21 021 Inactive Start 08/01/20 pantoprazole 40 mg tablet,delayed release RxNorm: 285685 Take 1 Tablet(s) Oral QAM every morning 07/08/19 Inactive senna 8.6 mg tablet RxNorm: 643000 Take 1 Tablet(s) Oral QD 07/08/19 Inactive carbamazepine 200 mg tablet RxNorm: 617184 Take 1 Tablet(s) Oral BID 07/08/19 Inactive clopidogrel 75 mg tablet RxNorm: 822573 Take 1 Tablet(s) Oral QD 07/08/19 021 Inactive Blood Glucose Test strips RxNorm: Use 1 Test Strip QID at PRN 07/08/19 Inactive E11.42 Novolog Flexpen U-100 Insulin aspart 100 unit/mL (3 mL) subcutaneous RxNorm: 9406876 Administer per sliding scale Milliliter(s) Subcutaneous TID 151-200: 10 u; 201-250: 20 u; 251-300: 30 u; 301-350: 40 u; 351-400: 50 u. 07/08/19 Inactive lisinopril 5 mg tablet RxNorm: 240120 Take 1 Tablet(s) Oral QD 07/08/19 Inactive Novolog Flexpen U-100 Insulin aspart 100 unit/mL (3 mL) subcutaneous RxNorm: 0570964 Inject 85 Unit(s) Subcutaneous TID 07/08/19 Inactive pravastatin 80 mg tablet RxNorm: 010545 Take 1 Tablet(s) Oral QHS every night at bedtime 07/08/19 023 Inactive clotrimazole 1 % topical cream RxNorm: 568101 Apply to bilateral groin areas Topical BID 07/08/19 022 Inactive metoprolol succinate ER 200 mg tablet,extended release 24 hr RxNorm: 365520 Take 1 Tablet(s) Oral QD 07/08/19 021 Inactive Vitamin D3 25 mcg (1,000 unit) tablet RxNorm: 179661 Take 1 Tablet(s) Oral QD 07/08/19 021 Inactive isosorbide dinitrate 30 mg tablet RxNorm: 578591 Take 1 Tablet(s) Oral QD 07/08/19 21 021 Inactive Levemir FlexTouch U-100 Insulin 100 unit/mL (3 mL) subcutaneous pen RxNorm: 400327 Inject 140 Unit(s) Subcutaneous BID 07/08/19 21 021 Inactive torsemide 20 mg tablet RxNorm: 793005 Take 1 Tablet(s) Oral QD 07/08/19 21 023 Inactive venlafaxine 75 mg tablet RxNorm: 077050 Take 1 Tablet(s) Oral QD 07/08/19 021 Inactive acetaminophen 500 mg tablet RxNorm: 130827 Take 1 Tablet(s) Oral TID as needed for headache 06/18/19 Inactive acetaminophen 500 mg tablet RxNorm: 536840 Take 1 Tablet(s) Oral TID as needed for headache 06/18/19 21 021 Inactive Lyrica 100 mg capsule RxNorm: 795158 Take 1 Capsule(s) Oral QHS every night at bedtime 06/11/19 021 Inactive Lyrica 50 mg capsule RxNorm: 252835 Take 1 Capsule(s) Oral QAM every morning 06/10/19 21 021 Inactive hydrocortisone 2.5 % topical cream RxNorm: 424304 Apply to bilateral groin creases Topical BID 05/15/20 20 021 Inactive clotrimazole 1 % topical cream RxNorm: 032523 Apply to bilateral groin areas Topical BID 05/15/20 20 021 Inactive Lyrica 50 mg capsule RxNorm: 538340 Take 1 Capsule(s) Oral QAM every morning 05/14/20 20 020 Inactive Lyrica 100 mg capsule RxNorm: 662160 Take 1 Capsule(s) Oral QHS every night [...] Inactive Nystop 100,000 unit/gram topical powder RxNorm: 560680 Apply to abd folds, under breasts and L side of groin Topical BID x 14 days, then BID PRN 04/08/20 20 Inactive dx: yeast dermatitis Lyrica 100 mg capsule RxNorm: 966932 Take 1 Capsule(s) Oral QHS every night at bedtime 03/13/20 20 Inactive Lyrica 50 mg capsule RxNorm: 257076 Take 1 Capsule(s) Oral QAM every morning 03/13/20 20 Inactive ketoconazole 2 % shampoo RxNorm: 730205 Apply Topical two times a week with showers 03/11/20 20 Inactive cholecalciferol (vitamin D3) 50 mcg (2,000 unit) tablet RxNorm: 151338 Take 1 Tablet(s) Oral QD 03/11/20 20 021 Inactive Zetia 10 mg tablet RxNorm: 623857 Take 1 Tablet(s) Oral QD 03/07/20 20 021 Inactive Zetia 10 mg tablet RxNorm: 142935 Take 1 Tablet(s) Oral QD 03/07/20 20 Inactive Lyrica 50 mg capsule RxNorm: 564855 Take 1 Capsule(s) Oral QAM every morning 02/15/20 20 Inactive Lyrica 100 mg capsule RxNorm: 724308 Take 1 Capsule(s) Oral QHS every night at bedtime 02/15/20 20 Inactive Lyrica 100 mg capsule RxNorm: 133285 Take 1 Capsule(s) Oral QHS every night at bedtime 02/15/20 20 020 Inactive Lyrica 50 mg capsule RxNorm: 128443 Take 1 Capsule(s) Oral QAM every morning 02/15/20 20 020 Inactive polyethylene glycol 3350 17 gram/dose oral powder RxNorm: 023729 Take 17=1 capful Gram(s) Oral BID as needed mix with 4-8oz of liquid 06/12/19 22 024 Inactive metoprolol succinate ER 200 mg tablet,extended release 24 hr RxNorm: 862361 Take 1 Tablet(s) Oral QD 08/12/19 23 Active loperamide 2 mg capsule RxNorm: 079699 Take 1 Capsule(s) Oral QID as needed 06/12/19 22 Active hydralazine 50 mg tablet RxNorm: 133008 Take 1 Tablet(s) Oral QID 08/12/19 23 Active venlafaxine ER 75 mg capsule,extended release 24 hr RxNorm: 962575 Take 3 Capsule(s) Oral QD 06/12/19 22 023 Inactive icosapent ethyl 1 gram capsule RxNorm: 3758397 Take 2 Capsule(s) (2 gm) Oral BID with meals 10/07/19 23 023 Inactive Okay to dispense one 2gm tab if you have that available. Levemir FlexTouch U-100 Insulin 100 unit/mL (3 mL) subcutaneous pen RxNorm: 644259 Inject 80 Unit(s) Subcutaneous BID 07/14/19 23 023 Inactive Novolog Flexpen U-100 Insulin aspart 100 unit/mL (3 mL) subcutaneous RxNorm: 9253553 Insert 30 Unit(s) Subcutaneous TID with meals 10/08/19 22 022 Inactive Medication Administered No Medication Administered data Reason For Visit No Reason For Visit data Plan of Care Planned Activity Notes Codes Status Date Referral: [facility] Nathan WPtel: [address], [address] [id number] Referral Records Received 09/21/2022 Referral: [facility] WPtel: [address] [id number] [place] Referral Completed 05/28/2021 Referral: General Cardiology Referral Complet ed 01/03/2021 Referral: General Psychologist Referral Close d Referral: General Psychiatrist Referral Patient/Family Scheduling Appointment Instructions Comment Date Leonid is a?? Male being seen living at [facility]. Initial [facility] visit 01/2020. PMHx including DMII, CAD w/ 5 stents, Depression, Seizure Disorder and CKD stage 3. He moved into [facility] in 12/2019 but after a hospitalization 05/2021 he moved to the [facility] to have closer nursing attention.??Sister Jyotsna involved in his care cell# [phone]??Guardian: Don (tapan met in person 09/01/21), now has Lexii (same group as don)Lab Schedule: /September*September (CBC with diff, CMP, A1c) (Novemebr: CBC, CMP, A1c, Lipids, VitD) 10/08/2023
--- OUTSIDE RECORDS SUMMARY | 2023-11-03 10:23 | XMS_ITS | CCD ---
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 Name Role Phone Harrison Durham Primary Care Provider Leona vailable Harrison Durham Chronic Care Management U navailable Summary Purpose DataExchange Insurance Providers Payer name Policy type / Coverage type Covered democrat ID Effective Begin Date Effective End Date Medicare [place] Medicare Part B [id number] Unknown Unknown Medicaid [place] Medicare Part B [id number] Unknown Unknown Family history Sister Brittany Suggs [...] Unknown Shelter 09/03/[address]: 3733235 Non-Smoker / No History of Smoking 09/02/[address]: 676259579 No Alcohol Consum ption 09/02/2020 Allergies, Adverse Reactions, Alerts Substance Reaction Codes Entered Date Inactivated Date Status LISINOPRIL RxNorm: 42530 02/12/2020 No Inactive Da te Active Metformin [...] 05/04/2023 Active Coronary artery disease invo lving habematolel coronary artery of habematolel heart, angina presence unspecified ICD-10: I25.10 ICD-9: [...] F33. 9 ICD-9: 296.30 03/03/2023 Active Other emt intermediate (current) dr ug therapy ICD-10: Z79.899 ICD-9: [...] Instructions bisacodyl 10 mg rectal suppository RxNorm: 249768 Insert one suppository per rectum once daily as needed for constipation 06/15/19 24 024 Inactive bisacodyl 10 mg rectal suppository RxNorm: 575799 Insert one suppository per rectum once daily as needed for constipation 06/15/19 024 Inactive pregabalin 100 mg capsule RxNorm: 936573 Take 1 Capsule(s) Oral QAM every morning 04/27/20 23 024 Inactive Levemir FlexPen 100 unit/mL (3 mL) solution subcutaneous insulin pen RxNorm: 376557 Inject 30 Unit(s) Subcutaneous BID 04/27/20 23 024 Inactive rosuvastatin 40 mg tablet RxNorm: 455247 Take 1 Tablet(s) Oral QPM every evening 04/16/20 024 Inactive D/C rosuvastatin 20mg venlafaxine ER 75 mg capsule,extended release 24 hr RxNorm: 443121 Take 3 Capsule(s) Oral QD 04/14/20 23 023 Inactive pregabalin 100 mg capsule RxNorm: 168420 Take 1 Capsule(s) Oral QAM every morning [...] meter clotrimazole 1 % topical cream RxNorm: 824738 Take apply topically to abdominal folds twice daily for 14 days 03/12/20 23 024 Inactive Ozempic 1 mg/dose (4 mg/3 mL) subcutaneous pen injector RxNorm: 8794279 Inject 1 Milligram(s) Subcutaneous QW once a week 03/11/20 23 023 Inactive rosuvastatin 20 mg tablet RxNorm: 129067 Take 1 Tablet(s) Oral QD 02/26/20 023 Inactive d/c pravastatin 80mg Ozempic 1 mg/dose (4 mg/3 mL) subcutaneous pen injector RxNorm: 8279427 Inject 1 Milligram(s) Subcutaneous QW once a week 02/20/20 23 023 Inactive pregabalin 150 mg capsule RxNorm: 630358 Take 1 Capsule(s) Oral HS at bed time 02/19/20 023 Inactive pregabalin 100 mg capsule RxNorm: 801929 Take 1 Capsule(s) Oral QAM every morning 02/18/20 023 Inactive FreeStyle Chema 2 Sensor kit RxNorm: use as directed 02/04/20 23 024 Inactive venlafaxine ER 75 mg capsule,extended release 24 hr RxNorm: 376436 Take 3 Capsule(s) Oral QD 02/04/20 23 023 Inactive FreeStyle Chema 2 Sensor kit RxNorm: use as directed 02/04/20 23 023 Inactive fluconazole 150 mg tablet RxNorm: 617072 Take 1 Tablet(s) Oral on day 3 and on day 6 02/03/20 23 024 Active chlorthalidone 25 mg tablet RxNorm: 874053 Take 1 Tablet(s) Oral QAM every morning 02/03/20 23 No Stop Date Active venlafaxine ER 150 mg capsule,extended release 24 hr RxNorm: 516108 Take 1 Capsule(s) Oral QD 02/03/20 23 023 Inactive acetaminophen 500 mg tablet RxNorm: 375295 1 TABLET ORALLY 3 TIMES DAILY (MAX APAP:4GM/24HR) 12/15/19 23 023 Inactive potassium chloride ER 20 mEq tablet,extended release RxNorm: 547832 Take 1 Tablet(s) Oral BID 12/09/19 23 024 Inactive d/c 20mEq once daily (sent from hospital) clotrimazole 1 % topical cream RxNorm: 737030 apply 1g topically to top of feet and in between toes BID 12/09/19 23 023 Inactive nystatin 100,000 unit/gram topical powder RxNorm: 241962 APPLY TO AFFECTED AREAS TOPICALLY 2 TIMES DAILY 11/21/19 23 024 Inactive Nystop 100,000 unit/gram topical powder RxNorm: 762309 Apply to abd folds, under breasts and L side of groin Topical BID x 14 days, then BID PRN 11/20/19 023 Inactive dx: yeast dermatitis Bengay Ultra Strength 4 %-30 %-10 % topical cream RxNorm: 042750 Apply 1 Gram(s) Topical QID PRN to feet and legs for neuropathic pain 11/11/19 024 Active hydrocortisone 2.5 % topical cream RxNorm: 877489 Apply 1/2 Gram(s) Topical BID as needed 11/10/19 024 Inactive clotrimazole 1 % topical cream RxNorm: 063654 Apply 1/2 Gram(s) Topical BID Apply to affected areas of groin, periarea, and abdominal topically 2 times daily 11/10/19 023 Inactive Humulin R U-500 (Concentrated) Insulin 500 unit/mL subcutaneous soln RxNorm: 042456 Inject 100 Unit(s) Subcutaneous TID 10/07/19 024 Inactive Ozempic 0.25 mg or 0.5 mg (2 mg/3 mL) subcutaneous pen injector RxNorm: 9732094 Inject 1/2 Milligram(s) Subcutaneous QW once a week 10/07/19 024 Inactive Levemir FlexPen 100 unit/mL (3 mL) solution subcutaneous insulin pen RxNorm: 434170 Inject 30 Unit(s) Subcutaneous BID 10/07/19 023 Inactive aripiprazole 15 mg tablet RxNorm: 515200 1/2 TAB (7.5MG) ORALLY DAILY (DX:MAJOR DEPRESSIVE DISORDER) 09/23/19 023 Inactive Lancets,Thin 28 gauge RxNorm: Use 1 as directed QID 09/15/19 23 024 Inactive Accu-Chek Guide test strips RxNorm: Use 1 Test Strip QID 09/15/19 23 023 Inactive ok to substitute with any covered alternative test strip torsemide 20 mg tablet RxNorm: 899162 Take 1 Tablet(s) Oral BID 09/09/19 23 024 Inactive d/c once daily dosing carvedilol 25 mg tablet RxNorm: 650572 Take 1 Tablet(s) Oral QD 08/25/19 23 024 Inactive pregabalin 150 mg capsule RxNorm: 881737 1 Capsule(s) Oral HS at bed time 08/18/19 23 023 Inactive pregabalin 100 mg capsule RxNorm: 905527 1 Capsule(s) Oral QAM every morning 08/18/19 23 023 Inactive carvedilol 25 mg tablet RxNorm: 825866 1 Tablet(s) Oral QD 07/28/19 23 023 Inactive lisinopril 20 mg tablet RxNorm: 450614 Give 1 Tablet(s) Oral QD 07/28/19 23 023 Inactive Lyrica 150 mg capsule RxNorm: 992005 Take 1 Capsule(s) Oral QHS every night at bedtime 07/19/19 23 023 Inactive d/c 100mg dose Diflucan 150 mg tablet RxNorm: 578572 Take 1 Tablet(s) Oral QD repeat on day 3 and 6 07/19/19 23 023 Inactive pregabalin 100 mg capsule RxNorm: 014194 Take 1 Capsule(s) Oral QAM every morning 07/19/19 23 023 Inactive gatifloxacin 0.5 % eye drops RxNorm: 295311 Instill 1 Drop(s) as directed TID Instill 1 drop in to affected eye(s) starting 1 day prior to surgery and continue until gone (do not exceed 4 weeks). 07/13/19 23 023 Inactive carvedilol 25 mg tablet RxNorm: 137633 2 Tablet(s) Oral BID 07/13/19 23 023 Inactive Humulin R Regular U-100 Insulin 100 unit/mL injection solution RxNorm: 875205 85 Unit(s) Injection TID 07/13/19 23 023 Inactive ketorolac 0.5 % eye drops RxNorm: 154834 Instill 1 Drop(s) as directed QID Instill 1 drop into affected eye(s) 4 times daily starting 1 day prior to surgery and continue until gone (do not exceed 4 weeks). 07/13/19 23 023 Inactive Diflucan 150 mg tablet RxNorm: 818853 Take 1 Tablet(s) Oral QD repeat on day 3 and 6 06/30/19 23 023 Inactive Accu-Chek Guide test strips RxNorm: Use 1 Test Strip QID Use 1 test strip to monitor blood glucose 4 times daily and as needed. Dx:E11.42. 06/23/19 023 Inactive ok to substitute with any covered alternative test strip dextromethorphan-gu aifenesin 10 mg-100 mg/5 mL oral liquid RxNorm: 903420 Take 10 Milliliter(s) Oral every 4 hours as needed for cough 06/19/19 023 Inactive dextromethorphan-gu aifenesin 10 mg-100 mg/5 mL oral liquid RxNorm: 872670 Take 10 Milliliter(s) Oral every 4 hours as needed for cough 06/19/19 023 Inactive Lyrica 150 mg capsule RxNorm: 378859 Take 1 Capsule(s) Oral QHS every night at bedtime 06/18/19 023 Inactive d/c 100mg dose aripiprazole 15 mg tablet RxNorm: 896591 1/2 TAB (7.5MG) ORALLY DAILY (DX:MAJOR DEPRESSIVE DISORDER) 06/05/19 23 023 Inactive pregabalin 100 mg capsule RxNorm: 049494 1 Capsule(s) Oral QAM every morning 06/02/19 23 023 Inactive Banophen 50 mg capsule RxNorm: 3104338 Take 1 Capsule(s) Oral Q6H every 6 hours as needed 05/19/19 23 No Stop Date Active Novolog Flexpen U-100 Insulin aspart 100 unit/mL (3 mL) subcutaneous RxNorm: 9681200 Inject 10 Unit(s) Subcutaneous QHS every night at bedtime with nighttime snack 04/08/20 022 Inactive Novolog Flexpen U-100 Insulin aspart 100 unit/mL (3 mL) subcutaneous RxNorm: 1490890 Inject 42 Unit(s) Subcutaneous TID in addition to sliding scale 04/08/20 022 Inactive d/c 36u albuterol sulfate HFA 90 mcg/actuation aerosol inhaler RxNorm: 2820565 Take 2 Puff(s) Inhalation Q4H every four hours as needed as needed for SOB, cough, or wheezing 04/07/20 030 Active Banophen 50 mg capsule RxNorm: 9656566 Take 1 Capsule(s) Oral Q6H every 6 hours as needed 04/06/20 023 Inactive diphenhydramine 50 mg tablet RxNorm: 5846544 Take 1 Tablet(s) Oral Q6H every 6 hours as needed 04/06/20 022 Inactive diphenhydramine 50 mg tablet RxNorm: 5965270 1 Tablet(s) Oral Q6H every 6 hours as needed 04/06/20 022 Inactive Abilify 15 mg tablet RxNorm: 959954 1/2 Tablet(s) Oral QD 03/10/20 023 Inactive Shingrix (PF) 50 mcg/0.5 mL intramuscular suspension, kit RxNorm: 8389347 Administer 1/2 Milliliter(s) Intramuscular QD one time shingrix step 2 ( step 1 given 11/04/21) WITH needle - Nursing please administer upon arrival and once administered post a bridge message with date of administration, shirring tender, expiration date, and lot# so we can update [facility] 02/18/20 22 022 Inactive dispense with needle Shingrix (PF) 50 mcg/0.5 mL intramuscular suspension, kit RxNorm: 3658394 Administer 1/2 Milliliter(s) Intramuscular QD one time shingrix step 2 ( step 1 given 11/04/21) WITH needle - Nursing please administer upon arrival and once administered post a bridge message with date of administration, shirring tender, expiration date, and lot# so we can update [facility] 02/18/20 22 022 Inactive dispense with needle polyethylene glycol 3350 17 gram/dose oral powder RxNorm: 468591 Take 17=1 capful Gram(s) Oral QD mix with 4-8oz of liquid 01/08/20 22 023 Inactive take this in addition to BID prn order Lyrica 100 mg capsule RxNorm: 350273 Take 1 Capsule(s) Oral QAM every morning 01/08/20 22 022 Inactive d/c 50mg dose acetaminophen 500 mg tablet RxNorm: 114691 Take 1 Tablet(s) Oral TID 01/08/20 22 022 Inactive d/c PRN order Lyrica 150 mg capsule RxNorm: 051407 Take 1 Capsule(s) Oral QHS every night at bedtime 01/08/20 22 023 Inactive d/c 100mg dose Abilify 5 mg tablet RxNorm: 586775 Take 1 Tablet(s) Oral QD take 1 tab po QD #30 refill 5 dx: MDD 12/12/19 22 022 Inactive Abilify 5 mg tablet RxNorm: 878502 Take 1 Tablet(s) Oral QD take 1 tab po QD #30 refill 5 dx: MDD 12/12/19 22 022 Inactive Novolog Flexpen U-100 Insulin aspart 100 unit/mL (3 mL) subcutaneous RxNorm: 8791257 Inject 42 Unit(s) Subcutaneous TID in addition to sliding scale 12/10/19 22 022 Inactive d/c 36u chlorthalidone 25 mg tablet RxNorm: 008247 Take 1 Tablet(s) Oral QAM every morning 12/10/19 22 023 Inactive pregabalin 50 mg capsule RxNorm: 595564 Take 1 Capsule(s) Oral QAM every morning 11/12/19 22 022 Inactive tetanus-diphtheria toxoids-Td 2 Lf unit-2 Lf unit/0.5 mL IM suspension RxNorm: 139 Take 0.5 Miscellaneous Intramuscular 11/12/19 22 022 Inactive need tdap - nursing to administer upon arrival pregabalin 50 mg capsule RxNorm: 534011 Take 1 Capsule(s) Oral QAM every morning 10/16/19 22 022 Inactive pregabalin 50 mg capsule RxNorm: 850567 Take 1 Capsule(s) Oral QAM every morning 10/16/19 22 022 Inactive pregabalin 50 mg capsule RxNorm: 202125 1 Capsule(s) Oral QAM every morning 10/15/19 22 022 Inactive Shingrix (PF) 50 mcg/0.5 mL intramuscular suspension, kit RxNorm: 6906075 Administer 1/2 Milliliter(s) Intramuscular one time Nursing please administer upon arrival and once administered post a bridge message with date of administration, shirring tender, expiration date, and lot# so we can update [facility]. 10/09/19 22 022 Inactive shingrix step 1 Shingrix (PF) 50 mcg/0.5 mL intramuscular suspension, kit RxNorm: 4196236 Administer 1/2 Milliliter(s) Intramuscular one time Nursing please administer upon arrival and once administered post a bridge message with date of administration, shirring tender, expiration date, and lot# so we can update [facility]. 10/09/19 22 022 Inactive shingrix step 1 cholecalciferol (vitamin D3) 1,250 mcg (50,000 unit) capsule RxNorm: 043775 Take 1 Capsule(s) Oral QW once a [...] aspart 100 unit/mL (3 mL) subcutaneous RxNorm: 1600884 Inject 10 Unit(s) Subcutaneous QHS every night at bedtime with nighttime snack 10/08/19 22 022 Inactive Shingrix (PF) 50 mcg/0.5 mL intramuscular suspension, kit RxNorm: 0743860 ADMINISTER 2-DOSE SERIES PER CDC GUIDELINES 10/08/19 22 Active Shingrix (PF) 50 mcg/0.5 mL intramuscular suspension, kit RxNorm: 8354823 ADMINISTER 2-DOSE SERIES PER CDC GUIDELINES 10/08/19 22 Inactive Novolog Flexpen U-100 Insulin aspart 100 unit/mL (3 mL) subcutaneous RxNorm: 2869464 Inject 36 Unit(s) Subcutaneous TID in addition to sliding scale 10/08/19 Inactive Novofine Autocover 30 gauge x 1/3 needle RxNorm: Use 1 Miscellaneous UD as directed Use 1 needle as directed to administer insulin 5 times a day Dx:E11.42. 10/03/19 Inactive ok to substitute with any covered alternative pen needle benzoyl peroxide 10 % topical cleanser RxNorm: 436214 Apply 1 Application Topical QD apply to face, wash rinse and dry once daily (may change to QOD if drying) 08/19/19 022 Inactive (%covered by insurance) #60ml refill 11 dx: acne benzoyl peroxide 10 % topical cleanser RxNorm: 398352 Apply 1 Application Topical QD apply to face, wash rinse and dry once daily (may change to QOD if drying) 08/19/19 022 Inactive (%covered by insurance) #60ml refill 11 dx: acne benzoyl peroxide 10 % topical cleanser RxNorm: 803588 Apply 1 Application Topical QD apply to face, wash rinse and dry once daily (may change to QOD if drying) 08/19/19 22 022 Inactive (%covered by insurance) #60ml refill 11 dx: acne Lyrica 50 mg capsule RxNorm: 146755 Take 1 Capsule(s) Oral QAM every morning Take 1 capsule by mouth once daily 08/19/19 22 022 Inactive benzoyl peroxide 10 % topical cleanser RxNorm: 945686 Apply 1 Application Topical QD apply to face, wash rinse and dry once daily (may change to QOD if drying) 08/19/19 22 022 Inactive (%covered by insurance) #60ml refill 11 dx: acne Lyrica 100 mg capsule RxNorm: 847150 Take 1 Capsule(s) Oral QHS every night at bedtime Take 1 capsule by mouth once daily at bedtime 08/19/19 22 022 Inactive Lyrica 100 mg capsule RxNorm: 145039 Take 1 Capsule(s) Oral QHS every night at bedtime Take 1 capsule by mouth once daily at bedtime 08/16/19 22 022 Inactive Lyrica 50 mg capsule RxNorm: 262065 Take 1 Capsule(s) Oral QAM every morning Take 1 capsule by mouth once daily 08/16/19 22 022 Inactive Levemir FlexTouch U-100 Insulin 100 unit/mL (3 mL) subcutaneous pen RxNorm: 860205 Inject 86 Unit(s) Subcutaneous BID 08/05/19 22 022 Inactive d/c 83units BID Lyrica 100 mg capsule RxNorm: 789232 Take 1 Capsule(s) Oral QHS every night at bedtime Take 1 capsule by mouth once daily at bedtime 07/14/19 22 022 Inactive Lyrica 50 mg capsule RxNorm: 261081 Take 1 Capsule(s) Oral QAM every morning Take 1 capsule by mouth once daily 07/14/19 22 022 Inactive Levemir FlexTouch U-100 Insulin 100 unit/mL (3 mL) subcutaneous pen RxNorm: 308888 Inject 83 Unit(s) Subcutaneous BID 07/08/19 22 [...] 30 mg tablet,extended release 24 hr RxNorm: 491738 Take 1 Tablet(s) Oral QD 05/05/20 21 024 Inactive hydralazine 50 mg tablet RxNorm: 660282 Take 1 Tablet(s) Oral QID 05/05/20 21 022 Inactive venlafaxine ER 225 mg tablet,extended release 24 hr RxNorm: 853889 Take 1 Tablet(s) Oral QD 05/05/20 21 021 Inactive venlafaxine ER 225 mg tablet,extended release 24 hr RxNorm: 812353 Take 1 Tablet(s) Oral QD 05/05/20 21 022 Inactive hydralazine 50 mg tablet RxNorm: 751641 Take 1 Tablet(s) Oral QID 05/05/20 21 021 Inactive aspirin 81 mg tablet,delayed release RxNorm: 796868 Take 1 Tablet(s) Oral QD 03/31/20 21 022 Inactive Zetia 10 mg tablet RxNorm: 927770 Take 1 Tablet(s) Oral QD 03/31/20 21 024 Inactive Vitamin D2 1,250 mcg (50,000 unit) capsule RxNorm: 0473486 Take 1 Capsule(s) Oral QW once a week x 12 weeks 03/31/20 022 Inactive Vitamin D2 1,250 mcg (50,000 unit) capsule RxNorm: 1701005 Take 1 Capsule(s) Oral QW once a week 03/31/20 Inactive Zetia 10 mg tablet RxNorm: 342897 Take 1 Tablet(s) Oral QD 03/31/20 Inactive hydralazine 25 mg tablet RxNorm: 793734 Take 1 Tablet(s) Oral QID 03/31/20 021 Inactive hydralazine 25 mg tablet RxNorm: 240200 Take 1 Tablet(s) Oral QID 03/31/20 Inactive hydralazine 10 mg tablet RxNorm: 457073 Take 1 Tablet(s) Oral QID 03/03/20 021 Inactive cephalexin 500 mg tablet RxNorm: 371269 Take 1 Tablet(s) Oral QID 02/27/20 021 Inactive cephalexin 500 mg tablet RxNorm: 282488 Take 1 Tablet(s) Oral QID 02/27/20 021 Inactive lisinopril 40 mg tablet RxNorm: 849505 Take 1 Tablet(s) Oral QD 02/11/20 023 Inactive Eliquis 5 mg tablet RxNorm: 6482118 Take 1 Tablet(s) Oral BID 01/05/20 022 Inactive Eliquis 5 mg tablet RxNorm: 3273878 Take 2 Tablet(s) Oral QD 01/01/20 21 021 Inactive Lyrica 50 mg capsule RxNorm: 660293 Take 1 Capsule(s) Oral QAM every morning 12/24/19 21 021 Inactive Lyrica 100 mg capsule RxNorm: 757974 Take 1 Capsule(s) Oral QHS every night at bedtime 12/24/19 21 021 Inactive clotrimazole 1 % topical cream RxNorm: 166131 Apply to right foot and toes Topical BID 12/04/19 21 023 Inactive metoprolol succinate ER 200 mg tablet,extended release 24 hr RxNorm: 896530 Take 1 Tablet(s) Oral QD 12/04/19 21 023 Inactive ciprofloxacin 500 mg tablet RxNorm: 198438 Take 1 Tablet(s) Oral QD 11/30/19 21 021 Inactive DX ofloxacin otic drops Accu-Chek Guide test strips RxNorm: USE 1 TO CHECK GLUCOSE 4 TIMES DAILY AND NEEDED 11/15/19 21 023 Inactive Blood Glucose Test strips RxNorm: Use 1 Test Strip QID at PRN 11/05/19 21 023 Inactive E11.42 lisinopril 30 mg tablet RxNorm: 155000 Take 1 Tablet(s) Oral QD 10/30/19 21 021 Inactive lisinopril 20 mg tablet RxNorm: 409995 Take 1 Tablet(s) Oral QD 10/23/19 21 021 Inactive lisinopril 20 mg tablet RxNorm: 382449 Take 1 Tablet(s) Oral QD 10/23/19 21 021 Inactive lisinopril 10 mg tablet RxNorm: 936378 Take 1 Tablet(s) Oral QD 10/02/19 21 021 Inactive icosapent ethyl 1 gram capsule RxNorm: 4334213 Take 2 Capsule(s) (2 gm) Oral BID with meals 09/12/19 21 024 Inactive Okay to dispense one 2gm tab if you have that available. icosapent ethyl 1 gram capsule RxNorm: 2928367 Take 2 Capsule(s) Oral BID 09/12/19 21 021 Inactive Okay to dispense one 2gm tab if you have that available. amlodipine 10 mg tablet RxNorm: 297947 Take 1 Tablet(s) Oral QD 09/04/19 21 022 Inactive aspirin 81 mg tablet,delayed release RxNorm: 318099 Take 1 Tablet(s) Oral QD 09/04/19 21 021 Inactive Levemir FlexTouch U-100 Insulin 100 unit/mL (3 mL) subcutaneous pen RxNorm: 788068 Inject 150 Unit(s) Subcutaneous BID 09/04/19 21 022 Inactive venlafaxine ER 150 mg tablet,extended release 24 hr RxNorm: 893290 Take 1 Tablet(s) Oral QD 09/04/19 Inactive clotrimazole-betame thasone 1 %-0.05 % topical cream RxNorm: 655335 Apply to rash on red area on left abdomen/chest Topical BID 08/10/19 21 Inactive amlodipine 5 mg tablet RxNorm: 034030 Take 1 Tablet(s) Oral QD 07/31/19 21 Inactive cephalexin 500 mg tablet RxNorm: 363297 Take 1 Tablet(s) Oral BID BID - Twice Daily 07/31/19 Inactive Start 08/01/20 pantoprazole 40 mg tablet,delayed release RxNorm: 099518 Take 1 Tablet(s) Oral QAM every morning 07/08/19 022 Inactive senna 8.6 mg tablet RxNorm: 247577 Take 1 Tablet(s) Oral QD 07/08/19 022 Inactive carbamazepine 200 mg tablet RxNorm: 881439 Take 1 Tablet(s) Oral BID 07/08/19 022 Inactive clopidogrel 75 mg tablet RxNorm: 503061 Take 1 Tablet(s) Oral QD 07/08/19 021 Inactive Blood Glucose Test strips RxNorm: Use 1 Test Strip QID at PRN 07/08/19 Inactive E11.42 Novolog Flexpen U-100 Insulin aspart 100 unit/mL (3 mL) subcutaneous RxNorm: 9765051 Administer per sliding scale Milliliter(s) Subcutaneous TID 151-200: 10 u; 201-250: 20 u; 251-300: 30 u; 301-350: 40 u; 351-400: 50 u. 07/08/19 21 022 Inactive lisinopril 5 mg tablet RxNorm: 169765 Take 1 Tablet(s) Oral QD 07/08/19 021 Inactive Novolog Flexpen U-100 Insulin aspart 100 unit/mL (3 mL) subcutaneous RxNorm: 4203047 Inject 85 Unit(s) Subcutaneous TID 07/08/19 022 Inactive pravastatin 80 mg tablet RxNorm: 195518 Take 1 Tablet(s) Oral QHS every night at bedtime 07/08/19 023 Inactive clotrimazole 1 % topical cream RxNorm: 904935 Apply to bilateral groin areas Topical BID 07/08/19 022 Inactive metoprolol succinate ER 200 mg tablet,extended release 24 hr RxNorm: 460031 Take 1 Tablet(s) Oral QD 07/08/19 021 Inactive Vitamin D3 25 mcg (1,000 unit) tablet RxNorm: 446260 Take 1 Tablet(s) Oral QD 07/08/19 021 Inactive isosorbide dinitrate 30 mg tablet RxNorm: 532605 Take 1 Tablet(s) Oral QD 07/08/19 021 Inactive Levemir FlexTouch U-100 Insulin 100 unit/mL (3 mL) subcutaneous pen RxNorm: 988015 Inject 140 Unit(s) Subcutaneous BID 07/08/19 021 Inactive torsemide 20 mg tablet RxNorm: 693234 Take 1 Tablet(s) Oral QD 07/08/19 023 Inactive venlafaxine 75 mg tablet RxNorm: 783897 Take 1 Tablet(s) Oral QD 07/08/19 021 Inactive acetaminophen 500 mg tablet RxNorm: 742470 Take 1 Tablet(s) Oral TID as needed for headache 06/18/19 021 Inactive acetaminophen 500 mg tablet RxNorm: 330137 Take 1 Tablet(s) Oral TID as needed for headache 06/18/19 021 Inactive Lyrica 100 mg capsule RxNorm: 061373 Take 1 Capsule(s) Oral QHS every night at bedtime 06/11/19 021 Inactive Lyrica 50 mg capsule RxNorm: 926567 Take 1 Capsule(s) Oral QAM every morning 06/10/19 021 Inactive hydrocortisone 2.5 % topical cream RxNorm: 755463 Apply to bilateral groin creases Topical BID 05/15/20 20 021 Inactive clotrimazole 1 % topical cream RxNorm: 802286 Apply to bilateral groin areas Topical BID 05/15/20 20 Inactive Lyrica 50 mg capsule RxNorm: 922911 Take 1 Capsule(s) Oral QAM every morning 05/14/20 20 020 Inactive Lyrica 100 mg capsule RxNorm: 883024 Take 1 Capsule(s) Oral QHS every night [...] Inactive Nystop 100,000 unit/gram topical powder RxNorm: 940812 Apply to abd folds, under breasts and L side of groin Topical BID x 14 days, then BID PRN 04/08/20 20 Inactive dx: yeast dermatitis Lyrica 100 mg capsule RxNorm: 816670 Take 1 Capsule(s) Oral QHS every night at bedtime 03/13/20 20 Inactive Lyrica 50 mg capsule RxNorm: 982171 Take 1 Capsule(s) Oral QAM every morning 03/13/20 20 020 Inactive ketoconazole 2 % shampoo RxNorm: 652979 Apply Topical two times a week with showers 03/11/20 20 024 Inactive cholecalciferol (vitamin D3) 50 mcg (2,000 unit) tablet RxNorm: 521054 Take 1 Tablet(s) Oral QD 03/11/20 20 021 Inactive Zetia 10 mg tablet RxNorm: 640851 Take 1 Tablet(s) Oral QD 03/07/20 20 Inactive Zetia 10 mg tablet RxNorm: 491470 Take 1 Tablet(s) Oral QD 03/07/20 20 Inactive Lyrica 50 mg capsule RxNorm: 587911 Take 1 Capsule(s) Oral QAM every morning 02/15/20 20 Inactive Lyrica 100 mg capsule RxNorm: 401328 Take 1 Capsule(s) Oral QHS every night at bedtime 02/15/20 20 Inactive Lyrica 100 mg capsule RxNorm: 506996 Take 1 Capsule(s) Oral QHS every night at bedtime 02/15/20 Inactive Lyrica 50 mg capsule RxNorm: 073156 Take 1 Capsule(s) Oral QAM every morning 02/15/20 Inactive polyethylene glycol 3350 17 gram/dose oral powder RxNorm: 842642 Take 17=1 capful Gram(s) Oral BID as needed mix with 4-8oz of liquid 06/12/19 22 024 Inactive metoprolol succinate ER 200 mg tablet,extended release 24 hr RxNorm: 100195 Take 1 Tablet(s) Oral QD 08/12/19 23 Active loperamide 2 mg capsule RxNorm: 172419 Take 1 Capsule(s) Oral QID as needed 06/12/19 22 Active hydralazine 50 mg tablet RxNorm: 226928 Take 1 Tablet(s) Oral QID 08/12/19 23 Active venlafaxine ER 75 mg capsule,extended release 24 hr RxNorm: 170492 Take 3 Capsule(s) Oral QD 06/12/19 22 023 Inactive icosapent ethyl 1 gram capsule RxNorm: 5855514 Take 2 Capsule(s) (2 gm) Oral BID with meals 10/07/19 23 023 Inactive Okay to dispense one 2gm tab if you have that available. Levemir FlexTouch U-100 Insulin 100 unit/mL (3 mL) subcutaneous pen RxNorm: 446759 Inject 80 Unit(s) Subcutaneous BID 07/14/19 23 023 Inactive Novolog Flexpen U-100 Insulin aspart 100 unit/mL (3 mL) subcutaneous RxNorm: 1902816 Insert 30 Unit(s) Subcutaneous TID with meals 10/08/19 22 022 Inactive Medication Administered No Medication Administered data Procedures Procedure Codes Date DEBRIDE NAIL 6 OR MORE CPT-4: 59754 SYS BP LESS 140 CPT-4: G8752 06/15/2023 CUI BP LESS 90 CPT-4: G8754 06/15/2023 Vital Signs Date Vital 06/15/2023 Blood Pressure 1: 120/60 Code: 8 480-6 Heart Rate 1: 78 bpm Code: 8867-4 Reason For Visit No Reason For Visit data Encounters Encounter Performer Location Location Address Codes Date ([address]) Home or Residence Visit Est Pt - Moderate Level, 40 mins Diagnosis: Hx of deep venous thrombosis[ICD10: Z86.718] Diagnosis: Diabetic neuropathy associated with type 2 diabetes mellitus[ICD10: E11.40] Diagnosis: Constipation by delayed colonic transit[ICD10: K59.01] Diagnosis: Onychogryposis[ICD1 0: L60.2] Diagnosis: Type 2 diabetes mellitus with diabetic polyneuropathy, with long-term current use of insulin[ICD10: E11.42] Harrison Munson [facility] [address] [address] [place] [address] CPT-4: 57501 06/15/2023 Plan of Care Planned Activity Notes Codes Status Date Appointment: Sandra Clark WPtel: [phone] Telehealth Psych Follow Up 12/09 Appointment: Tapan Shirley WPtel: [address] [facility] 10/26/2022 Referral: [facility] WPtel: [address], [address] [id number] Referral Records Received 09/21/2022 Appointment: Tapan Shirley WPtel: [address] [facility] [address] [id number] [place] F/U 08/11/2022 Appointment: Tapan Shirley WPtel: 270 [facility] [address] [id number] [place] F/U 07/14/2022 Appointment: Tapan Shirley WPtel: 270 [facility] 300 [id number] [place] F/U 02/10/2022 Referral: [facility] WPtel: [address] [facility] [address] [id number] [place] Referral Completed 05/28/2021 Referral: General Cardiology [...] attention.??Sister Jyotsna involved in his care cell# [phone]??Guardian: Giulia (tapan met in person 09/01/21), now [...] of time. See VAI and orders to details.??. 06/15/2023
--- OUTSIDE RECORDS SUMMARY | 2023-11-03 10:23 | XMS_ITS | CCD ---
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 Supervisor Transcribing Operators Name Role Phone Arpitmichelle MCKINLEY-CHarrison Primary Care Provider Leona vailable [place] [facility] Chronic Care Management U navailable Summary Purpose DataExchange Insurance Providers Payer name Policy type / Coverage type Covered green party ID Effective Begin Date Effective End Date [place] B [id number] Unknown Unknown [place] Medicare Part B [id number] Unknown Unknown Family history Sister Brittany Suggs [...] Care 09/03/[address]: 3843900 Non-Smoker / No History of Smoking 09/02/[address]: 759945696 No Alcohol Consum ption 09/02/2020 Allergies, Adverse Reactions, Alerts Substance Reaction Codes Entered Date Inactivated Date Status LISINOPRIL RxNorm: 81390 02/12/2020 No Inactive Da te Active Metformin [...] 05/04/2023 Active Coronary artery disease invo lving [place] coronary artery of [place] heart, angina presence unspecified ICD-10: I25.10 ICD-9: [...] F33. 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 [...] glycol 3350 17 gram/dose oral powder RxNorm: 251304 Take 1 Packet Oral QD as needed (1 packet = 17g) mix with 4-8oz of liquid 06/15/19 024 Inactive bisacodyl 10 mg rectal suppository RxNorm: 059518 Insert one suppository per rectum once daily as needed for constipation 06/15/19 24 024 Inactive bisacodyl 10 mg rectal suppository RxNorm: 599423 Insert one suppository per rectum once daily as needed for constipation 06/15/19 024 Inactive pregabalin 100 mg capsule RxNorm: 540638 Take 1 Capsule(s) Oral QAM every morning 04/27/20 024 Inactive Levemir FlexPen 100 unit/mL (3 mL) solution subcutaneous insulin pen RxNorm: 127940 Inject 30 Unit(s) Subcutaneous BID 04/27/20 024 Inactive rosuvastatin 40 mg tablet RxNorm: 157007 Take 1 Tablet(s) Oral QPM every evening 04/16/20 024 Inactive D/C rosuvastatin 20mg venlafaxine ER 75 mg capsule,extended release 24 hr RxNorm: 663252 Take 3 Capsule(s) Oral QD 04/14/20 023 Inactive pregabalin 100 mg capsule RxNorm: 414051 Take 1 Capsule(s) Oral QAM every morning [...] meter clotrimazole 1 % topical cream RxNorm: 303964 Take apply topically to abdominal folds twice daily for 14 days 03/12/20 024 Inactive Ozempic 1 mg/dose (4 mg/3 mL) subcutaneous pen injector RxNorm: 6561080 Inject 1 Milligram(s) Subcutaneous QW once a week 03/11/20 23 023 Inactive rosuvastatin 20 mg tablet RxNorm: 881954 Take 1 Tablet(s) Oral QD 02/26/20 23 023 Inactive d/c pravastatin 80mg Ozempic 1 mg/dose (4 mg/3 mL) subcutaneous pen injector RxNorm: 1245843 Inject 1 Milligram(s) Subcutaneous QW once a week 02/20/20 23 023 Inactive pregabalin 150 mg capsule RxNorm: 486710 Take 1 Capsule(s) Oral HS at bed time 02/19/20 23 023 Inactive pregabalin 100 mg capsule RxNorm: 297932 Take 1 Capsule(s) Oral QAM every morning 02/18/20 023 Inactive FreeStyle Chema 2 Sensor kit RxNorm: use as directed 02/04/20 23 024 Inactive venlafaxine ER 75 mg capsule,extended release 24 hr RxNorm: 829396 Take 3 Capsule(s) Oral QD 02/04/20 23 023 Inactive FreeStyle Chema 2 Sensor kit RxNorm: use as directed 02/04/20 23 023 Inactive fluconazole 150 mg tablet RxNorm: 286108 Take 1 Tablet(s) Oral on day 3 and on day 6 02/03/20 23 024 Active chlorthalidone 25 mg tablet RxNorm: 199950 Take 1 Tablet(s) Oral QAM every morning 02/03/20 23 No Stop Date Active venlafaxine ER 150 mg capsule,extended release 24 hr RxNorm: 853467 Take 1 Capsule(s) Oral QD 02/03/20 23 023 Inactive acetaminophen 500 mg tablet RxNorm: 827858 1 TABLET ORALLY 3 TIMES DAILY (MAX APAP:4GM/24HR) 12/15/19 23 023 Inactive potassium chloride ER 20 mEq tablet,extended release RxNorm: 284512 Take 1 Tablet(s) Oral BID 12/09/19 23 024 Inactive d/c 20mEq once daily (sent from hospital) clotrimazole 1 % topical cream RxNorm: 169105 apply 1g topically to top of feet and in between toes BID 12/09/19 23 023 Inactive nystatin 100,000 unit/gram topical powder RxNorm: 549275 APPLY TO AFFECTED AREAS TOPICALLY 2 TIMES DAILY 11/21/19 23 024 Inactive Nystop 100,000 unit/gram topical powder RxNorm: 872417 Apply to abd folds, under breasts and L side of groin Topical BID x 14 days, then BID PRN 11/20/19 023 Inactive dx: yeast dermatitis [place] Ultra Strength 4 %-30 %-10 % topical cream RxNorm: 482015 Apply 1 Gram(s) Topical QID PRN to feet and legs for neuropathic pain 11/11/19 024 Active hydrocortisone 2.5 % topical cream RxNorm: 216341 Apply 1/2 Gram(s) Topical BID as needed 11/10/19 024 Inactive clotrimazole 1 % topical cream RxNorm: 179233 Apply 1/2 Gram(s) Topical BID Apply to affected areas of groin, periarea, and abdominal topically 2 times daily 11/10/19 023 Inactive Humulin R U-500 (Concentrated) Insulin 500 unit/mL subcutaneous soln RxNorm: 322108 Inject 100 Unit(s) Subcutaneous TID 10/07/19 024 Inactive Ozempic 0.25 mg or 0.5 mg (2 mg/3 mL) subcutaneous pen injector RxNorm: 8498423 Inject 1/2 Milligram(s) Subcutaneous QW once a week 10/07/19 024 Inactive Levemir FlexPen 100 unit/mL (3 mL) solution subcutaneous insulin pen RxNorm: 955078 Inject 30 Unit(s) Subcutaneous BID 10/07/19 023 Inactive aripiprazole 15 mg tablet RxNorm: 307555 1/2 TAB (7.5MG) ORALLY DAILY (DX:MAJOR DEPRESSIVE DISORDER) 09/23/19 023 Inactive Lancets,Thin 28 gauge RxNorm: Use 1 as directed QID 09/15/19 23 024 Inactive Accu-Chek Guide test strips RxNorm: Use 1 Test Strip QID 09/15/19 23 023 Inactive ok to substitute with any covered alternative test strip torsemide 20 mg tablet RxNorm: 455070 Take 1 Tablet(s) Oral BID 09/09/19 23 024 Inactive d/c once daily dosing carvedilol 25 mg tablet RxNorm: 252614 Take 1 Tablet(s) Oral QD 08/25/19 23 024 Inactive pregabalin 150 mg capsule RxNorm: 188553 1 Capsule(s) Oral HS at bed time 08/18/19 23 023 Inactive pregabalin 100 mg capsule RxNorm: 394828 1 Capsule(s) Oral QAM every morning 08/18/19 23 023 Inactive carvedilol 25 mg tablet RxNorm: 888293 1 Tablet(s) Oral QD 07/28/19 23 023 Inactive lisinopril 20 mg tablet RxNorm: 167854 Give 1 Tablet(s) Oral QD 07/28/19 23 023 Inactive Lyrica 150 mg capsule RxNorm: 639274 Take 1 Capsule(s) Oral QHS every night at bedtime 07/19/19 23 023 Inactive d/c 100mg dose Diflucan 150 mg tablet RxNorm: 480908 Take 1 Tablet(s) Oral QD repeat on day 3 and 6 07/19/19 23 023 Inactive pregabalin 100 mg capsule RxNorm: 490744 Take 1 Capsule(s) Oral QAM every morning 07/19/19 23 023 Inactive gatifloxacin 0.5 % eye drops RxNorm: 574355 Instill 1 Drop(s) as directed TID Instill 1 drop in to affected eye(s) starting 1 day prior to surgery and continue until gone (do not exceed 4 weeks). 07/13/19 23 023 Inactive carvedilol 25 mg tablet RxNorm: 203520 2 Tablet(s) Oral BID 07/13/19 23 023 Inactive Humulin R Regular U-100 Insulin 100 unit/mL injection solution RxNorm: 024330 85 Unit(s) Injection TID 07/13/19 23 023 Inactive ketorolac 0.5 % eye drops RxNorm: 591249 Instill 1 Drop(s) as directed QID Instill 1 drop into affected eye(s) 4 times daily starting 1 day prior to surgery and continue until gone (do not exceed 4 weeks). 07/13/19 23 023 Inactive Diflucan 150 mg tablet RxNorm: 432267 Take 1 Tablet(s) Oral QD repeat on day 3 and 6 06/30/19 23 023 Inactive Accu-Chek Guide test strips RxNorm: Use 1 Test Strip QID Use 1 test strip to monitor blood glucose 4 times daily and as needed. Dx:E11.42. 06/23/19 023 Inactive ok to substitute with any covered alternative test strip dextromethorphan-gu aifenesin 10 mg-100 mg/5 mL oral liquid RxNorm: 744779 Take 10 Milliliter(s) Oral every 4 hours as needed for cough 06/19/19 023 Inactive dextromethorphan-gu aifenesin 10 mg-100 mg/5 mL oral liquid RxNorm: 809671 Take 10 Milliliter(s) Oral every 4 hours as needed for cough 06/19/19 23 023 Inactive Lyrica 150 mg capsule RxNorm: 700595 Take 1 Capsule(s) Oral QHS every night at bedtime 06/18/19 023 Inactive d/c 100mg dose aripiprazole 15 mg tablet RxNorm: 005290 1/2 TAB (7.5MG) ORALLY DAILY (DX:MAJOR DEPRESSIVE DISORDER) 06/05/19 23 023 Inactive pregabalin 100 mg capsule RxNorm: 183814 1 Capsule(s) Oral QAM every morning 06/02/19 23 023 Inactive Banophen 50 mg capsule RxNorm: 1498795 Take 1 Capsule(s) Oral Q6H every 6 hours as needed 05/19/19 23 No Stop Date Active Novolog Flexpen U-100 Insulin aspart 100 unit/mL (3 mL) subcutaneous RxNorm: 9394657 Inject 10 Unit(s) Subcutaneous QHS every night at bedtime with nighttime snack 04/08/20 022 Inactive Novolog Flexpen U-100 Insulin aspart 100 unit/mL (3 mL) subcutaneous RxNorm: 7425608 Inject 42 Unit(s) Subcutaneous TID in addition to sliding scale 04/08/20 022 Inactive d/c 36u albuterol sulfate HFA 90 mcg/actuation aerosol inhaler RxNorm: 1041329 Take 2 Puff(s) Inhalation Q4H every four hours as needed as needed for SOB, cough, or wheezing 04/07/20 030 Active Banophen 50 mg capsule RxNorm: 7888243 Take 1 Capsule(s) Oral Q6H every 6 hours as needed 04/06/20 023 Inactive diphenhydramine 50 mg tablet RxNorm: 4969099 Take 1 Tablet(s) Oral Q6H every 6 hours as needed 04/06/20 022 Inactive diphenhydramine 50 mg tablet RxNorm: 9128597 1 Tablet(s) Oral Q6H every 6 hours as needed 04/06/20 022 Inactive Abilify 15 mg tablet RxNorm: 192538 1/2 Tablet(s) Oral QD 03/10/20 023 Inactive Shingrix (PF) 50 mcg/0.5 mL intramuscular suspension, kit RxNorm: 6171959 Administer 1/2 Milliliter(s) Intramuscular QD one time shingrix step 2 ( step 1 given 11/04/21) WITH needle - Nursing please administer upon arrival and once administered 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, 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, 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, 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 lot# so we can update [facility] 02/18/20 22 022 Inactive dispense with needle Shingrix (PF) 50 mcg/0.5 mL intramuscular suspension, kit RxNorm: 2254092 Administer 1/2 Milliliter(s) Intramuscular QD one time shingrix step 2 ( step 1 given 11/04/21) WITH needle - Nursing please administer upon arrival and once administered post a bridge message 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, 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, 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, and lot# so we can update [facility] 02/18/20 22 022 Inactive dispense with needle polyethylene glycol 3350 17 gram/dose oral powder RxNorm: 324271 Take 17=1 capful Gram(s) Oral QD mix with 4-8oz of liquid 01/08/20 22 023 Inactive take this in addition to BID prn order Lyrica 100 mg capsule RxNorm: 286316 Take 1 Capsule(s) Oral QAM every morning 01/08/20 22 022 Inactive d/c 50mg dose acetaminophen 500 mg tablet RxNorm: 217164 Take 1 Tablet(s) Oral TID 01/08/20 22 022 Inactive d/c PRN order Lyrica 150 mg capsule RxNorm: 704827 Take 1 Capsule(s) Oral QHS every night at bedtime 01/08/20 22 023 Inactive d/c 100mg dose Abilify 5 mg tablet RxNorm: 400677 Take 1 Tablet(s) Oral QD take 1 tab po QD #30 refill 5 dx: MDD 12/12/19 22 022 Inactive Abilify 5 mg tablet RxNorm: 333436 Take 1 Tablet(s) Oral QD take 1 tab po QD #30 refill 5 dx: MDD 12/12/19 22 022 Inactive Novolog Flexpen U-100 Insulin aspart 100 unit/mL (3 mL) subcutaneous RxNorm: 8051673 Inject 42 Unit(s) Subcutaneous TID in addition to sliding scale 12/10/19 22 022 Inactive d/c 36u chlorthalidone 25 mg tablet RxNorm: 553757 Take 1 Tablet(s) Oral QAM every morning 12/10/19 22 023 Inactive pregabalin 50 mg capsule RxNorm: 061268 Take 1 Capsule(s) Oral QAM every morning 11/12/19 22 022 Inactive tetanus-diphtheria toxoids-Td 2 Lf unit-2 Lf unit/0.5 mL IM suspension RxNorm: 139 Take 0.5 Miscellaneous Intramuscular 11/12/19 22 022 Inactive need tdap - nursing to administer upon arrival pregabalin 50 mg capsule RxNorm: 124177 Take 1 Capsule(s) Oral QAM every morning 10/16/19 22 022 Inactive pregabalin 50 mg capsule RxNorm: 124543 Take 1 Capsule(s) Oral QAM every morning 10/16/19 22 022 Inactive pregabalin 50 mg capsule RxNorm: 036148 1 Capsule(s) Oral QAM every morning 10/15/19 22 022 Inactive Shingrix (PF) 50 mcg/0.5 mL intramuscular suspension, kit RxNorm: 1157382 Administer 1/2 Milliliter(s) Intramuscular one time Nursing please administer upon arrival and once administered post a bridge message 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 10/09/19 22 022 Inactive shingrix step 1 cholecalciferol (vitamin D3) 1,250 mcg (50,000 unit) capsule RxNorm: 414855 Take 1 Capsule(s) Oral QW once a [...] aspart 100 unit/mL (3 mL) subcutaneous RxNorm: 2379675 Inject 10 Unit(s) Subcutaneous QHS every night at bedtime with nighttime snack 10/08/19 22 022 Inactive Shingrix (PF) 50 mcg/0.5 mL intramuscular suspension, kit RxNorm: 5552505 ADMINISTER 2-DOSE SERIES PER CDC GUIDELINES 10/08/19 22 Active Shingrix (PF) 50 mcg/0.5 mL intramuscular suspension, kit RxNorm: 3194809 ADMINISTER 2-DOSE SERIES PER CDC GUIDELINES 10/08/19 22 Inactive Novolog Flexpen U-100 Insulin aspart 100 unit/mL (3 mL) subcutaneous RxNorm: 8495262 Inject 36 Unit(s) Subcutaneous TID in addition to sliding scale 10/08/19 Inactive Novofine Autocover 30 gauge x 1/3 needle RxNorm: Use 1 Miscellaneous UD as directed Use 1 needle as directed to administer insulin 5 times a day Dx:E11.42. 10/03/19 Inactive ok to substitute with any covered alternative pen needle benzoyl peroxide 10 % topical cleanser RxNorm: 005974 Apply 1 Application Topical QD apply to face, wash rinse and dry once daily (may change to QOD if drying) 08/19/19 022 Inactive (%covered by insurance) #60ml refill 11 dx: acne benzoyl peroxide 10 % topical cleanser RxNorm: 598670 Apply 1 Application Topical QD apply to face, wash rinse and dry once daily (may change to QOD if drying) 08/19/19 022 Inactive (%covered by insurance) #60ml refill 11 dx: acne benzoyl peroxide 10 % topical cleanser RxNorm: 456929 Apply 1 Application Topical QD apply to face, wash rinse and dry once daily (may change to QOD if drying) 08/19/19 022 Inactive (%covered by insurance) #60ml refill 11 dx: acne Lyrica 50 mg capsule RxNorm: 481104 Take 1 Capsule(s) Oral QAM every morning Take 1 capsule by mouth once daily 08/19/19 22 Inactive benzoyl peroxide 10 % topical cleanser RxNorm: 497938 Apply 1 Application Topical QD apply to face, wash rinse and dry once daily (may change to QOD if drying) 08/19/19 22 022 Inactive (%covered by insurance) #60ml refill 11 dx: acne Lyrica 100 mg capsule RxNorm: 799099 Take 1 Capsule(s) Oral QHS every night at bedtime Take 1 capsule by mouth once daily at bedtime 08/19/19 22 022 Inactive Lyrica 100 mg capsule RxNorm: 699696 Take 1 Capsule(s) Oral QHS every night at bedtime Take 1 capsule by mouth once daily at bedtime 08/16/19 22 022 Inactive Lyrica 50 mg capsule RxNorm: 568558 Take 1 Capsule(s) Oral QAM every morning Take 1 capsule by mouth once daily 08/16/19 22 022 Inactive Levemir FlexTouch U-100 Insulin 100 unit/mL (3 mL) subcutaneous pen RxNorm: 845003 Inject 86 Unit(s) Subcutaneous BID 08/05/19 22 022 Inactive d/c 83units BID Lyrica 100 mg capsule RxNorm: 312265 Take 1 Capsule(s) Oral QHS every night at bedtime Take 1 capsule by mouth once daily at bedtime 07/14/19 22 022 Inactive Lyrica 50 mg capsule RxNorm: 057519 Take 1 Capsule(s) Oral QAM every morning Take 1 capsule by mouth once daily 07/14/19 22 022 Inactive Levemir FlexTouch U-100 Insulin 100 unit/mL (3 mL) subcutaneous pen RxNorm: 788712 Inject 83 Unit(s) Subcutaneous BID 07/08/19 22 [...] 30 mg tablet,extended release 24 hr RxNorm: 432717 Take 1 Tablet(s) Oral QD 05/05/20 21 024 Inactive hydralazine 50 mg tablet RxNorm: 295056 Take 1 Tablet(s) Oral QID 05/05/20 21 022 Inactive venlafaxine ER 225 mg tablet,extended release 24 hr RxNorm: 811339 Take 1 Tablet(s) Oral QD 05/05/20 21 021 Inactive venlafaxine ER 225 mg tablet,extended release 24 hr RxNorm: 133661 Take 1 Tablet(s) Oral QD 05/05/20 21 022 Inactive hydralazine 50 mg tablet RxNorm: 076612 Take 1 Tablet(s) Oral QID 05/05/20 21 021 Inactive aspirin 81 mg tablet,delayed release RxNorm: 589976 Take 1 Tablet(s) Oral QD 03/31/20 21 022 Inactive Zetia 10 mg tablet RxNorm: 464472 Take 1 Tablet(s) Oral QD 03/31/20 21 024 Inactive Vitamin D2 1,250 mcg (50,000 unit) capsule RxNorm: 3593145 Take 1 Capsule(s) Oral QW once a week x 12 weeks 03/31/20 022 Inactive Vitamin D2 1,250 mcg (50,000 unit) capsule RxNorm: 1924351 Take 1 Capsule(s) Oral QW once a week 03/31/20 Inactive Zetia 10 mg tablet RxNorm: 452348 Take 1 Tablet(s) Oral QD 03/31/20 Inactive hydralazine 25 mg tablet RxNorm: 418572 Take 1 Tablet(s) Oral QID 03/31/20 021 Inactive hydralazine 25 mg tablet RxNorm: 167788 Take 1 Tablet(s) Oral QID 03/31/20 Inactive hydralazine 10 mg tablet RxNorm: 263323 Take 1 Tablet(s) Oral QID 03/03/20 021 Inactive cephalexin 500 mg tablet RxNorm: 153628 Take 1 Tablet(s) Oral QID 02/27/20 021 Inactive cephalexin 500 mg tablet RxNorm: 532237 Take 1 Tablet(s) Oral QID 02/27/20 021 Inactive lisinopril 40 mg tablet RxNorm: 734860 Take 1 Tablet(s) Oral QD 02/11/20 023 Inactive Eliquis 5 mg tablet RxNorm: 9224980 Take 1 Tablet(s) Oral BID 01/05/20 21 022 Inactive Eliquis 5 mg tablet RxNorm: 4443796 Take 2 Tablet(s) Oral QD 01/01/20 21 021 Inactive Lyrica 50 mg capsule RxNorm: 803368 Take 1 Capsule(s) Oral QAM every morning 12/24/19 21 021 Inactive Lyrica 100 mg capsule RxNorm: 741824 Take 1 Capsule(s) Oral QHS every night at bedtime 12/24/19 21 021 Inactive clotrimazole 1 % topical cream RxNorm: 844450 Apply to right foot and toes Topical BID 12/04/19 21 023 Inactive metoprolol succinate ER 200 mg tablet,extended release 24 hr RxNorm: 786900 Take 1 Tablet(s) Oral QD 12/04/19 21 023 Inactive ciprofloxacin 500 mg tablet RxNorm: 209870 Take 1 Tablet(s) Oral QD 11/30/19 21 021 Inactive DX ofloxacin otic drops Accu-Chek Guide test strips RxNorm: USE 1 TO CHECK GLUCOSE 4 TIMES DAILY AND NEEDED 11/15/19 21 023 Inactive Blood Glucose Test strips RxNorm: Use 1 Test Strip QID at PRN 11/05/19 21 023 Inactive E11.42 lisinopril 30 mg tablet RxNorm: 187781 Take 1 Tablet(s) Oral QD 10/30/19 21 021 Inactive lisinopril 20 mg tablet RxNorm: 779797 Take 1 Tablet(s) Oral QD 10/23/19 021 Inactive lisinopril 20 mg tablet RxNorm: 370003 Take 1 Tablet(s) Oral QD 10/23/19 21 021 Inactive lisinopril 10 mg tablet RxNorm: 939555 Take 1 Tablet(s) Oral QD 10/02/19 21 021 Inactive icosapent ethyl 1 gram capsule RxNorm: 6754099 Take 2 Capsule(s) (2 gm) Oral BID with meals 09/12/19 21 024 Inactive Okay to dispense one 2gm tab if you have that available. icosapent ethyl 1 gram capsule RxNorm: 8809081 Take 2 Capsule(s) Oral BID 09/12/19 21 021 Inactive Okay to dispense one 2gm tab if you have that available. amlodipine 10 mg tablet RxNorm: 102896 Take 1 Tablet(s) Oral QD 09/04/19 21 022 Inactive aspirin 81 mg tablet,delayed release RxNorm: 324915 Take 1 Tablet(s) Oral QD 09/04/19 21 021 Inactive Levemir FlexTouch U-100 Insulin 100 unit/mL (3 mL) subcutaneous pen RxNorm: 195796 Inject 150 Unit(s) Subcutaneous BID 09/04/19 21 022 Inactive venlafaxine ER 150 mg tablet,extended release 24 hr RxNorm: 584924 Take 1 Tablet(s) Oral QD 09/04/19 Inactive clotrimazole-betame thasone 1 %-0.05 % topical cream RxNorm: 200881 Apply to rash on red area on left abdomen/chest Topical BID 08/10/19 21 Inactive amlodipine 5 mg tablet RxNorm: 821569 Take 1 Tablet(s) Oral QD 07/31/19 21 Inactive cephalexin 500 mg tablet RxNorm: 088646 Take 1 Tablet(s) Oral BID BID - Twice Daily 07/31/19 Inactive Start 08/01/20 pantoprazole 40 mg tablet,delayed release RxNorm: 202874 Take 1 Tablet(s) Oral QAM every morning 07/08/19 Inactive senna 8.6 mg tablet RxNorm: 660645 Take 1 Tablet(s) Oral QD 07/08/19 022 Inactive carbamazepine 200 mg tablet RxNorm: 316748 Take 1 Tablet(s) Oral BID 07/08/19 Inactive clopidogrel 75 mg tablet RxNorm: 303738 Take 1 Tablet(s) Oral QD 07/08/19 Inactive Blood Glucose Test strips RxNorm: Use 1 Test Strip QID at PRN 07/08/19 Inactive E11.42 Novolog Flexpen U-100 Insulin aspart 100 unit/mL (3 mL) subcutaneous RxNorm: 3944239 Administer per sliding scale Milliliter(s) Subcutaneous TID 151-200: 10 u; 201-250: 20 u; 251-300: 30 u; 301-350: 40 u; 351-400: 50 u. 07/08/19 022 Inactive lisinopril 5 mg tablet RxNorm: 585702 Take 1 Tablet(s) Oral QD 07/08/19 Inactive Novolog Flexpen U-100 Insulin aspart 100 unit/mL (3 mL) subcutaneous RxNorm: 9764704 Inject 85 Unit(s) Subcutaneous TID 02/22/ 022 Inactive pravastatin 80 mg tablet RxNorm: 851693 Take 1 Tablet(s) Oral QHS every night at bedtime 07/08/19 023 Inactive clotrimazole 1 % topical cream RxNorm: 508418 Apply to bilateral groin areas Topical BID 07/08/19 022 Inactive metoprolol succinate ER 200 mg tablet,extended release 24 hr RxNorm: 565225 Take 1 Tablet(s) Oral QD 07/08/19 021 Inactive Vitamin D3 25 mcg (1,000 unit) tablet RxNorm: 204770 Take 1 Tablet(s) Oral QD 07/08/19 021 Inactive isosorbide dinitrate 30 mg tablet RxNorm: 216455 Take 1 Tablet(s) Oral QD 07/08/19 021 Inactive Levemir FlexTouch U-100 Insulin 100 unit/mL (3 mL) subcutaneous pen RxNorm: 269421 Inject 140 Unit(s) Subcutaneous BID 07/08/19 021 Inactive torsemide 20 mg tablet RxNorm: 835295 Take 1 Tablet(s) Oral QD 07/08/19 023 Inactive venlafaxine 75 mg tablet RxNorm: 737233 Take 1 Tablet(s) Oral QD 07/08/19 021 Inactive acetaminophen 500 mg tablet RxNorm: 020776 Take 1 Tablet(s) Oral TID as needed for headache 06/18/19 021 Inactive acetaminophen 500 mg tablet RxNorm: 953907 Take 1 Tablet(s) Oral TID as needed for headache 06/18/19 021 Inactive Lyrica 100 mg capsule RxNorm: 401734 Take 1 Capsule(s) Oral QHS every night at bedtime 06/11/19 021 Inactive Lyrica 50 mg capsule RxNorm: 380639 Take 1 Capsule(s) Oral QAM every morning 06/10/19 021 Inactive hydrocortisone 2.5 % topical cream RxNorm: 390498 Apply to bilateral groin creases Topical BID 05/15/20 20 021 Inactive clotrimazole 1 % topical cream RxNorm: 812781 Apply to bilateral groin areas Topical BID 05/15/20 20 Inactive Lyrica 50 mg capsule RxNorm: 789298 Take 1 Capsule(s) Oral QAM every morning 05/14/20 20 020 Inactive Lyrica 100 mg capsule RxNorm: 172694 Take [...] Inactive Nystop 100,000 unit/gram topical powder RxNorm: 393242 Apply to abd folds, under breasts and L side of groin Topical BID x 14 days, then BID PRN 04/08/20 20 020 Inactive dx: yeast dermatitis Lyrica 100 mg capsule RxNorm: 275389 Take 1 Capsule(s) Oral QHS every night at bedtime 03/13/20 20 020 Inactive Lyrica 50 mg capsule RxNorm: 207673 Take 1 Capsule(s) Oral QAM every morning 03/13/20 20 020 Inactive ketoconazole 2 % shampoo RxNorm: 924325 Apply Topical two times a week with showers 03/11/20 20 024 Inactive cholecalciferol (vitamin D3) 50 mcg (2,000 unit) tablet RxNorm: 188714 Take 1 Tablet(s) Oral QD 03/11/20 20 021 Inactive Zetia 10 mg tablet RxNorm: 279332 Take 1 Tablet(s) Oral QD 03/07/20 20 021 Inactive Zetia 10 mg tablet RxNorm: 721324 Take 1 Tablet(s) Oral QD 03/07/20 20 Inactive Lyrica 50 mg capsule RxNorm: 788680 Take 1 Capsule(s) Oral QAM every morning 02/15/20 20 Inactive Lyrica 100 mg capsule RxNorm: 638749 Take 1 Capsule(s) Oral QHS every night at bedtime 02/15/20 20 Inactive Lyrica 100 mg capsule RxNorm: 948534 Take 1 Capsule(s) Oral QHS every night at bedtime 02/15/20 20 Inactive Lyrica 50 mg capsule RxNorm: 275377 Take 1 Capsule(s) Oral QAM every morning 02/15/20 20 Inactive polyethylene glycol 3350 17 gram/dose oral powder RxNorm: 514142 Take 17=1 capful Gram(s) Oral BID as needed mix with 4-8oz of liquid 06/12/19 22 024 Inactive metoprolol succinate ER 200 mg tablet,extended release 24 hr RxNorm: 127892 Take 1 Tablet(s) Oral QD 08/12/19 23 Active loperamide 2 mg capsule RxNorm: 167171 Take 1 Capsule(s) Oral QID as needed 06/12/19 22 Active hydralazine 50 mg tablet RxNorm: 510637 Take 1 Tablet(s) Oral QID 08/12/19 23 Active venlafaxine ER 75 mg capsule,extended release 24 hr RxNorm: 856449 Take 3 Capsule(s) Oral QD 06/12/19 22 023 Inactive icosapent ethyl 1 gram capsule RxNorm: [id number] Take 2 Capsule(s) (2 gm) Oral BID with meals 10/07/19 23 023 Inactive Okay to dispense one 2gm tab if you have that available. Levemir FlexTouch U-100 Insulin 100 unit/mL (3 mL) subcutaneous pen RxNorm: [id number] Inject 80 Unit(s) Subcutaneous BID 07/14/19 23 023 Inactive Novolog Flexpen U-100 Insulin aspart 100 unit/mL (3 mL) subcutaneous RxNorm: [id number] Insert 30 Unit(s) Subcutaneous TID with meals 10/08/19 22 022 Inactive Medication Administered No Medication Administered data Reason For Visit No Reason For Visit data Plan of Care Planned Activity Notes Codes Status Date Referral: [facility] WPtel: [phone], [address] [id number] [place] Referral Records Received 09/21/2022 Referral: [facility] WPtel: [address] [id number] [place] Referral Completed 05/28/2021 Referral: General Cardiology [...] [facility].??Sister Jyotsna involved in his care cell# [phone]??Guardian: Don (tapan met in person 09/01/21), now has Lexii (same group as don)Lab Schedule: /September*September (CBC with diff, CMP, A1c) (Novemebr: CBC, CMP, A1c, Lipids, VitD) 10/08/2023
--- OUTSIDE RECORDS SUMMARY | 2023-11-03 10:24 | XMS_ITS | CCD ---
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 Sample Case Porter Name Role Phone Arpitmichelle MCKINLEY-CHarrison Primary Care Provider Leona vailable Alcorn SKID ADZER-[facility] Chronic Care Management U navailable Summary Purpose DataExchange Insurance Providers Payer name Policy type / Coverage type Covered constitution party ID Effective Begin Date Effective End Date [place] [id number] Unknown Unknown [place] B [id number] Unknown Unknown Family history Sister Brittany Suggs [...] Fdc 09/03/[address]: 8327413 Non-Smoker / No History of Smoking 09/02/[address]: 552632623 No Alcohol Consum ption 09/02/2020 Allergies, Adverse Reactions, Alerts Substance Reaction Codes Entered Date Inactivated Date Status LISINOPRIL RxNorm: 87159 02/12/2020 No Inactive Da te Active Metformin [...] 05/04/2023 Active Coronary artery disease invo lving ute [...] immunization ICD-10: Z23 ICD-9: V03.89 02/10/2022 Resolved 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) use of insulin ICD-10: Z79.4 02/10 [...] Fill Instructions pregabalin 150 mg capsule RxNorm: 215413 Take 1 Capsule(s) Oral QHS every night at bedtime 07/05/19 24 024 Inactive pregabalin 150 mg capsule RxNorm: 112972 Take 1 Capsule(s) Oral QHS every night at bedtime 07/05/19 24 024 Active polyethylene glycol 3350 17 gram/dose oral powder RxNorm: 991637 Take 1 Packet Oral QD as needed (1 packet = 17g) mix with 4-8oz of liquid 06/15/19 24 024 Inactive bisacodyl 10 mg rectal suppository RxNorm: 299232 Insert one suppository per rectum once daily as needed for constipation 06/15/19 24 024 Inactive bisacodyl 10 mg rectal suppository RxNorm: 050100 Insert one suppository per rectum once daily as needed for constipation 06/15/19 024 Inactive pregabalin 100 mg capsule RxNorm: 405779 Take 1 Capsule(s) Oral QAM every morning 04/27/20 024 Inactive Levemir FlexPen 100 unit/mL (3 mL) solution subcutaneous insulin pen RxNorm: 848151 Inject 30 Unit(s) Subcutaneous BID 04/27/20 23 024 Inactive rosuvastatin 40 mg tablet RxNorm: 554011 Take 1 Tablet(s) Oral QPM every evening 04/16/20 024 Inactive D/C rosuvastatin 20mg venlafaxine ER 75 mg capsule,extended release 24 hr RxNorm: 577092 Take 3 Capsule(s) Oral QD 04/14/20 23 023 Inactive pregabalin 100 mg capsule RxNorm: 593475 Take 1 Capsule(s) Oral QAM every morning [...] meter clotrimazole 1 % topical cream RxNorm: 458125 Take apply topically to abdominal folds twice daily for 14 days 03/12/20 024 Inactive Ozempic 1 mg/dose (4 mg/3 mL) subcutaneous pen injector RxNorm: 0084944 Inject 1 Milligram(s) Subcutaneous QW once a week 03/11/20 023 Inactive rosuvastatin 20 mg tablet RxNorm: 896016 Take 1 Tablet(s) Oral QD 02/26/20 23 023 Inactive d/c pravastatin 80mg Ozempic 1 mg/dose (4 mg/3 mL) subcutaneous pen injector RxNorm: 5477643 Inject 1 Milligram(s) Subcutaneous QW once a week 02/20/20 23 023 Inactive pregabalin 150 mg capsule RxNorm: 948821 Take 1 Capsule(s) Oral HS at bed time 02/19/20 23 023 Inactive pregabalin 100 mg capsule RxNorm: 304516 Take 1 Capsule(s) Oral QAM every morning 02/18/20 23 023 Inactive FreeStyle Chema 2 Sensor kit RxNorm: use as directed 02/04/20 23 024 Inactive venlafaxine ER 75 mg capsule,extended release 24 hr RxNorm: 381572 Take 3 Capsule(s) Oral QD 02/04/20 23 023 Inactive FreeStyle Chema 2 Sensor kit RxNorm: use as directed 02/04/20 23 023 Inactive fluconazole 150 mg tablet RxNorm: 902236 Take 1 Tablet(s) Oral on day 3 and on day 6 02/03/20 23 024 Active chlorthalidone 25 mg tablet RxNorm: 170242 Take 1 Tablet(s) Oral QAM every morning 02/03/20 23 No Stop Date Active venlafaxine ER 150 mg capsule,extended release 24 hr RxNorm: 230272 Take 1 Capsule(s) Oral QD 02/03/20 23 023 Inactive acetaminophen 500 mg tablet RxNorm: 531533 1 TABLET ORALLY 3 TIMES DAILY (MAX APAP:4GM/24HR) 12/15/19 023 Inactive potassium chloride ER 20 mEq tablet,extended release RxNorm: 676493 Take 1 Tablet(s) Oral BID 12/09/19 024 Inactive d/c 20mEq once daily (sent from hospital) clotrimazole 1 % topical cream RxNorm: 341771 apply 1g topically to top of feet and in between toes BID 12/09/19 23 023 Inactive nystatin 100,000 unit/gram topical powder RxNorm: 565902 APPLY TO AFFECTED AREAS TOPICALLY 2 TIMES DAILY 11/21/19 23 024 Inactive Nystop 100,000 unit/gram topical powder RxNorm: 724450 Apply to abd folds, under breasts and L side of groin Topical BID x 14 days, then BID PRN 11/20/19 023 Inactive dx: yeast dermatitis [place] Ultra Strength 4 %-30 %-10 % topical cream RxNorm: 889074 Apply 1 Gram(s) Topical QID PRN to feet and legs for neuropathic pain 11/11/19 024 Active hydrocortisone 2.5 % topical cream RxNorm: 491228 Apply 1/2 Gram(s) Topical BID as needed 11/10/19 024 Inactive clotrimazole 1 % topical cream RxNorm: 573445 Apply 1/2 Gram(s) Topical BID Apply to affected areas of groin, periarea, and abdominal topically 2 times daily 11/10/19 023 Inactive Humulin R U-500 (Concentrated) Insulin 500 unit/mL subcutaneous soln RxNorm: 439582 Inject 100 Unit(s) Subcutaneous TID 10/07/19 024 Inactive Ozempic 0.25 mg or 0.5 mg (2 mg/3 mL) subcutaneous pen injector RxNorm: 5411587 Inject 1/2 Milligram(s) Subcutaneous QW once a week 10/07/19 23 024 Inactive Levemir FlexPen 100 unit/mL (3 mL) solution subcutaneous insulin pen RxNorm: 906925 Inject 30 Unit(s) Subcutaneous BID 10/07/19 023 Inactive aripiprazole 15 mg tablet RxNorm: 162780 05/18 TAB (7.5MG) ORALLY DAILY (DX:MAJOR DEPRESSIVE DISORDER) 09/23/19 023 Inactive Lancets,Thin 28 gauge RxNorm: Use 1 as directed QID 09/15/19 23 024 Inactive Accu-Chek Guide test strips RxNorm: Use 1 Test Strip QID 09/15/19 23 023 Inactive ok to substitute with any covered alternative test strip torsemide 20 mg tablet RxNorm: 354771 Take 1 Tablet(s) Oral BID 09/09/19 23 024 Inactive d/c once daily dosing carvedilol 25 mg tablet RxNorm: 248967 Take 1 Tablet(s) Oral QD 08/25/19 23 024 Inactive pregabalin 150 mg capsule RxNorm: 064894 1 Capsule(s) Oral HS at bed time 08/18/19 023 Inactive pregabalin 100 mg capsule RxNorm: 957778 1 Capsule(s) Oral QAM every morning 08/18/19 23 023 Inactive carvedilol 25 mg tablet RxNorm: 942346 1 Tablet(s) Oral QD 07/28/19 23 023 Inactive lisinopril 20 mg tablet RxNorm: 598059 Give 1 Tablet(s) Oral QD 07/28/19 23 023 Inactive Lyrica 150 mg capsule RxNorm: 825700 Take 1 Capsule(s) Oral QHS every night at bedtime 07/19/19 023 Inactive d/c 100mg dose Diflucan 150 mg tablet RxNorm: 879455 Take 1 Tablet(s) Oral QD repeat on day 3 and 6 07/19/19 23 023 Inactive pregabalin 100 mg capsule RxNorm: 048409 Take 1 Capsule(s) Oral QAM every morning 07/19/19 23 023 Inactive gatifloxacin 0.5 % eye drops RxNorm: 544065 Instill 1 Drop(s) as directed TID Instill 1 drop in to affected eye(s) starting 1 day prior to surgery and continue until gone (do not exceed 4 weeks). 07/13/19 23 023 Inactive carvedilol 25 mg tablet RxNorm: 189276 2 Tablet(s) Oral BID 07/13/19 23 023 Inactive Humulin R Regular U-100 Insulin 100 unit/mL injection solution RxNorm: 376922 85 Unit(s) Injection TID 07/13/19 23 023 Inactive ketorolac 0.5 % eye drops RxNorm: 096484 Instill 1 Drop(s) as directed QID Instill 1 drop into affected eye(s) 4 times daily starting 1 day prior to surgery and continue until gone (do not exceed 4 weeks). 07/13/19 23 023 Inactive Diflucan 150 mg tablet RxNorm: 828209 Take 1 Tablet(s) Oral QD repeat on day 3 and 6 06/30/19 023 Inactive Accu-Chek Guide test strips RxNorm: Use 1 Test Strip QID Use 1 test strip to monitor blood glucose 4 times daily and as needed. Dx:E11.42. 06/23/19 23 023 Inactive ok to substitute with any covered alternative test strip dextromethorphan-gu aifenesin 10 mg-100 mg/5 mL oral liquid RxNorm: 373990 Take 10 Milliliter(s) Oral every 4 hours as needed for cough 06/19/19 23 023 Inactive dextromethorphan-gu aifenesin 10 mg-100 mg/5 mL oral liquid RxNorm: 461714 Take 10 Milliliter(s) Oral every 4 hours as needed for cough 06/19/19 23 023 Inactive Lyrica 150 mg capsule RxNorm: 072633 Take 1 Capsule(s) Oral QHS every night at bedtime 06/18/19 23 023 Inactive d/c 100mg dose aripiprazole 15 mg tablet RxNorm: 136866 1/2 TAB (7.5MG) ORALLY DAILY (DX:MAJOR DEPRESSIVE DISORDER) 06/05/19 23 023 Inactive pregabalin 100 mg capsule RxNorm: 463926 1 Capsule(s) Oral QAM every morning 06/02/19 23 023 Inactive Banophen 50 mg capsule RxNorm: 1038657 Take 1 Capsule(s) Oral Q6H every 6 hours as needed 05/19/19 No Stop Date Active Novolog Flexpen U-100 Insulin aspart 100 unit/mL (3 mL) subcutaneous RxNorm: 6990831 Inject 10 Unit(s) Subcutaneous QHS every night at bedtime with nighttime snack 04/08/20 Inactive Novolog Flexpen U-100 Insulin aspart 100 unit/mL (3 mL) subcutaneous RxNorm: 4836742 Inject 42 Unit(s) Subcutaneous TID in addition to sliding scale 04/08/20 Inactive d/c 36u albuterol sulfate HFA 90 mcg/actuation aerosol inhaler RxNorm: 4427612 Take 2 Puff(s) Inhalation Q4H every four hours as needed as needed for SOB, cough, or wheezing 04/07/20 030 Active Banophen 50 mg capsule RxNorm: 0808290 Take 1 Capsule(s) Oral Q6H every 6 hours as needed 04/06/20 023 Inactive diphenhydramine 50 mg tablet RxNorm: 6590711 Take 1 Tablet(s) Oral Q6H every 6 hours as needed 04/06/20 022 Inactive diphenhydramine 50 mg tablet RxNorm: 9305459 1 Tablet(s) Oral Q6H every 6 hours as needed 04/06/20 Inactive Abilify 15 mg tablet RxNorm: 430797 1/2 Tablet(s) Oral QD 03/10/20 023 Inactive Shingrix (PF) 50 mcg/0.5 mL intramuscular suspension, kit RxNorm: 8375971 Administer 1/2 Milliliter(s) Intramuscular QD one time shingrix step 2 ( step 1 given 11/04/21) WITH needle - Nursing please administer upon arrival and once administered post a bridge message with date of administration, roll inspector, expiration date, and lot# so we can update [facility] 02/18/20 22 022 Inactive dispense with needle Shingrix (PF) 50 mcg/0.5 mL intramuscular suspension, kit RxNorm: 8570932 Administer 1/2 Milliliter(s) Intramuscular QD one time shingrix step 2 ( step 1 given 11/04/21) WITH needle - Nursing please administer upon arrival and once administered post a bridge message with date of administration, roll inspector, expiration date, and lot# so we can update [facility] 02/18/20 22 022 Inactive dispense with needle polyethylene glycol 3350 17 gram/dose oral powder RxNorm: 599569 Take 17=1 capful Gram(s) Oral QD mix with 4-8oz of liquid 01/08/20 22 023 Inactive take this in addition to BID prn order Lyrica 100 mg capsule RxNorm: 392028 Take 1 Capsule(s) Oral QAM every morning 01/08/20 22 022 Inactive d/c 50mg dose acetaminophen 500 mg tablet RxNorm: 112744 Take 1 Tablet(s) Oral TID 01/08/20 22 022 Inactive d/c PRN order Lyrica 150 mg capsule RxNorm: 473965 Take 1 Capsule(s) Oral QHS every night at bedtime 01/08/20 22 023 Inactive d/c 100mg dose Abilify 5 mg tablet RxNorm: 777368 Take 1 Tablet(s) Oral QD take 1 tab po QD #30 refill 5 dx: MDD 12/12/19 22 022 Inactive Abilify 5 mg tablet RxNorm: 733253 Take 1 Tablet(s) Oral QD take 1 tab po QD #30 refill 5 dx: MDD 12/12/19 22 022 Inactive Novolog Flexpen U-100 Insulin aspart 100 unit/mL (3 mL) subcutaneous RxNorm: 9216724 Inject 42 Unit(s) Subcutaneous TID in addition to sliding scale 12/10/19 22 022 Inactive d/c 36u chlorthalidone 25 mg tablet RxNorm: 375256 Take 1 Tablet(s) Oral QAM every morning 12/10/19 22 023 Inactive pregabalin 50 mg capsule RxNorm: 866514 Take 1 Capsule(s) Oral QAM every morning 11/12/19 22 022 Inactive tetanus-diphtheria toxoids-Td 2 Lf unit-2 Lf unit/0.5 mL IM suspension RxNorm: 139 Take 0.5 Miscellaneous Intramuscular 11/12/19 22 022 Inactive need tdap - nursing to administer upon arrival pregabalin 50 mg capsule RxNorm: 673391 Take 1 Capsule(s) Oral QAM every morning 10/16/19 22 022 Inactive pregabalin 50 mg capsule RxNorm: 132165 Take 1 Capsule(s) Oral QAM every morning 10/16/19 22 022 Inactive pregabalin 50 mg capsule RxNorm: 217863 1 Capsule(s) Oral QAM every morning 10/15/19 22 022 Inactive Shingrix (PF) 50 mcg/0.5 mL intramuscular suspension, kit RxNorm: 4423181 Administer 1/2 Milliliter(s) Intramuscular one time Nursing please administer upon arrival and once administered post a bridge message with date of administration, roll inspector, expiration date, and lot# so we can update [facility]. 10/09/19 22 022 Inactive shingrix step 1 Shingrix (PF) 50 mcg/0.5 mL intramuscular suspension, kit RxNorm: 8469846 Administer 1/2 Milliliter(s) Intramuscular one time Nursing please administer upon arrival and once administered post a bridge message with date of administration, roll inspector, expiration date, and lot# so we can update [facility]. 10/09/19 22 022 Inactive shingrix step 1 cholecalciferol (vitamin D3) 1,250 mcg (50,000 unit) capsule RxNorm: 654289 Take 1 Capsule(s) Oral QW once a [...] aspart 100 unit/mL (3 mL) subcutaneous RxNorm: 3437670 Inject 10 Unit(s) Subcutaneous QHS every night at bedtime with nighttime snack 10/08/19 22 Inactive Shingrix (PF) 50 mcg/0.5 mL intramuscular suspension, kit RxNorm: 7410271 ADMINISTER 2-DOSE SERIES PER CDC GUIDELINES 10/08/19 22 Active Shingrix (PF) 50 mcg/0.5 mL intramuscular suspension, kit RxNorm: 5790063 ADMINISTER 2-DOSE SERIES PER CDC GUIDELINES 10/08/19 22 Inactive Novolog Flexpen U-100 Insulin aspart 100 unit/mL (3 mL) subcutaneous RxNorm: 5441189 Inject 36 Unit(s) Subcutaneous TID in addition to sliding scale 10/08/19 22 Inactive Novofine Autocover 30 gauge x 1/3 needle RxNorm: Use 1 Miscellaneous UD as directed Use 1 needle as directed to administer insulin 5 times a day Dx:E11.42. 10/03/19 22 Inactive ok to substitute with any covered alternative pen needle benzoyl peroxide 10 % topical cleanser RxNorm: 736001 Apply 1 Application Topical QD apply to face, wash rinse and dry once daily (may change to QOD if drying) 08/19/19 22 022 Inactive (%covered by insurance) #60ml refill 11 dx: acne benzoyl peroxide 10 % topical cleanser RxNorm: 629607 Apply 1 Application Topical QD apply to face, wash rinse and dry once daily (may change to QOD if drying) 08/19/19 22 022 Inactive (%covered by insurance) #60ml refill 11 dx: acne benzoyl peroxide 10 % topical cleanser RxNorm: 010110 Apply 1 Application Topical QD apply to face, wash rinse and dry once daily (may change to QOD if drying) 08/19/19 22 022 Inactive (%covered by insurance) #60ml refill 11 dx: acne Lyrica 50 mg capsule RxNorm: 600881 Take 1 Capsule(s) Oral QAM every morning Take 1 capsule by mouth once daily 08/19/19 22 022 Inactive benzoyl peroxide 10 % topical cleanser RxNorm: 675193 Apply 1 Application Topical QD apply to face, wash rinse and dry once daily (may change to QOD if drying) 08/19/19 22 Inactive (%covered by insurance) #60ml refill 11 dx: acne Lyrica 100 mg capsule RxNorm: 600384 Take 1 Capsule(s) Oral QHS every night at bedtime Take 1 capsule by mouth once daily at bedtime 08/19/19 22 022 Inactive Lyrica 100 mg capsule RxNorm: 645102 Take 1 Capsule(s) Oral QHS every night at bedtime Take 1 capsule by mouth once daily at bedtime 08/16/19 22 Inactive Lyrica 50 mg capsule RxNorm: 078261 Take 1 Capsule(s) Oral QAM every morning Take 1 capsule by mouth once daily 08/16/19 22 Inactive Levemir FlexTouch U-100 Insulin 100 unit/mL (3 mL) subcutaneous pen RxNorm: 581978 Inject 86 Unit(s) Subcutaneous BID 08/05/19 22 022 Inactive d/c 83units BID Lyrica 100 mg capsule RxNorm: 402895 Take 1 Capsule(s) Oral QHS every night at bedtime Take 1 capsule by mouth once daily at bedtime 07/14/19 22 022 Inactive Lyrica 50 mg capsule RxNorm: 249659 Take 1 Capsule(s) Oral QAM every morning Take 1 capsule by mouth once daily 07/14/19 22 022 Inactive Levemir FlexTouch U-100 Insulin 100 unit/mL (3 mL) subcutaneous pen RxNorm: 758059 Inject 83 Unit(s) Subcutaneous BID 07/08/19 22 [...] 30 mg tablet,extended release 24 hr RxNorm: 620935 Take 1 Tablet(s) Oral QD 05/05/20 21 024 Inactive hydralazine 50 mg tablet RxNorm: 539149 Take 1 Tablet(s) Oral QID 05/05/20 21 022 Inactive venlafaxine ER 225 mg tablet,extended release 24 hr RxNorm: 823405 Take 1 Tablet(s) Oral QD 05/05/20 21 021 Inactive venlafaxine ER 225 mg tablet,extended release 24 hr RxNorm: 546853 Take 1 Tablet(s) Oral QD 05/05/20 21 022 Inactive hydralazine 50 mg tablet RxNorm: 325276 Take 1 Tablet(s) Oral QID 05/05/20 21 021 Inactive aspirin 81 mg tablet,delayed release RxNorm: 176096 Take 1 Tablet(s) Oral QD 03/31/20 022 Inactive Zetia 10 mg tablet RxNorm: 564057 Take 1 Tablet(s) Oral QD 03/31/20 024 Inactive Vitamin D2 1,250 mcg (50,000 unit) capsule RxNorm: 4909019 Take 1 Capsule(s) Oral QW once a week x 12 weeks 03/31/20 022 Inactive Vitamin D2 1,250 mcg (50,000 unit) capsule RxNorm: 9231120 Take 1 Capsule(s) Oral QW once a week 03/31/20 021 Inactive Zetia 10 mg tablet RxNorm: 562207 Take 1 Tablet(s) Oral QD 03/31/20 Inactive hydralazine 25 mg tablet RxNorm: 203524 Take 1 Tablet(s) Oral QID 03/31/20 021 Inactive hydralazine 25 mg tablet RxNorm: 397806 Take 1 Tablet(s) Oral QID 03/31/20 021 Inactive hydralazine 10 mg tablet RxNorm: 924954 Take 1 Tablet(s) Oral QID 03/03/20 021 Inactive cephalexin 500 mg tablet RxNorm: 028395 Take 1 Tablet(s) Oral QID 02/27/20 021 Inactive cephalexin 500 mg tablet RxNorm: 639222 Take 1 Tablet(s) Oral QID 02/27/20 021 Inactive lisinopril 40 mg tablet RxNorm: 024302 Take 1 Tablet(s) Oral QD 02/11/20 023 Inactive Eliquis 5 mg tablet RxNorm: 9973444 Take 1 Tablet(s) Oral BID 01/05/20 022 Inactive Eliquis 5 mg tablet RxNorm: 7707984 Take 2 Tablet(s) Oral QD 01/01/20 21 021 Inactive Lyrica 50 mg capsule RxNorm: 519481 Take 1 Capsule(s) Oral QAM every morning 12/24/19 21 021 Inactive Lyrica 100 mg capsule RxNorm: 544657 Take 1 Capsule(s) Oral QHS every night at bedtime 12/24/19 21 021 Inactive clotrimazole 1 % topical cream RxNorm: 328376 Apply to right foot and toes Topical BID 12/04/19 21 023 Inactive metoprolol succinate ER 200 mg tablet,extended release 24 hr RxNorm: 454261 Take 1 Tablet(s) Oral QD 12/04/19 21 023 Inactive ciprofloxacin 500 mg tablet RxNorm: 182253 Take 1 Tablet(s) Oral QD 11/30/19 21 021 Inactive DX ofloxacin otic drops Accu-Chek Guide test strips RxNorm: USE 1 TO CHECK GLUCOSE 4 TIMES DAILY AND NEEDED 11/15/19 21 023 Inactive Blood Glucose Test strips RxNorm: Use 1 Test Strip QID at PRN 11/05/19 21 023 Inactive E11.42 lisinopril 30 mg tablet RxNorm: 625819 Take 1 Tablet(s) Oral QD 10/30/19 021 Inactive lisinopril 20 mg tablet RxNorm: 259418 Take 1 Tablet(s) Oral QD 10/23/19 21 021 Inactive lisinopril 20 mg tablet RxNorm: 550620 Take 1 Tablet(s) Oral QD 10/23/19 21 021 Inactive lisinopril 10 mg tablet RxNorm: 747378 Take 1 Tablet(s) Oral QD 10/02/19 21 021 Inactive icosapent ethyl 1 gram capsule RxNorm: 4123715 Take 2 Capsule(s) (2 gm) Oral BID with meals 09/12/19 21 024 Inactive Okay to dispense one 2gm tab if you have that available. icosapent ethyl 1 gram capsule RxNorm: 1074890 Take 2 Capsule(s) Oral BID 09/12/19 21 021 Inactive Okay to dispense one 2gm tab if you have that available. amlodipine 10 mg tablet RxNorm: 852472 Take 1 Tablet(s) Oral QD 09/04/19 21 022 Inactive aspirin 81 mg tablet,delayed release RxNorm: 019333 Take 1 Tablet(s) Oral QD 09/04/19 21 Inactive Levemir FlexTouch U-100 Insulin 100 unit/mL (3 mL) subcutaneous pen RxNorm: 996974 Inject 150 Unit(s) Subcutaneous BID 09/04/19 21 022 Inactive venlafaxine ER 150 mg tablet,extended release 24 hr RxNorm: 672986 Take 1 Tablet(s) Oral QD 09/04/19 Inactive clotrimazole-betame thasone 1 %-0.05 % topical cream RxNorm: 926669 Apply to rash on red area on left abdomen/chest Topical BID 08/10/19 21 Inactive amlodipine 5 mg tablet RxNorm: 767771 Take 1 Tablet(s) Oral QD 07/31/19 Inactive cephalexin 500 mg tablet RxNorm: 948451 Take 1 Tablet(s) Oral BID BID - Twice Daily 07/31/19 021 Inactive Start 08/01/20 pantoprazole 40 mg tablet,delayed release RxNorm: 404602 Take 1 Tablet(s) Oral QAM every morning 07/08/19 022 Inactive senna 8.6 mg tablet RxNorm: 529859 Take 1 Tablet(s) Oral QD 07/08/19 022 Inactive carbamazepine 200 mg tablet RxNorm: 409390 Take 1 Tablet(s) Oral BID 07/08/19 022 Inactive clopidogrel 75 mg tablet RxNorm: 645099 Take 1 Tablet(s) Oral QD 07/08/19 021 Inactive Blood Glucose Test strips RxNorm: Use 1 Test Strip QID at PRN 07/08/19 21 021 Inactive E11.42 Novolog Flexpen U-100 Insulin aspart 100 unit/mL (3 mL) subcutaneous RxNorm: 5906345 Administer per sliding scale Milliliter(s) Subcutaneous TID 151-200: 10 u; 201-250: 20 u; 251-300: 30 u; 301-350: 40 u; 351-400: 50 u. 07/08/19 21 022 Inactive lisinopril 5 mg tablet RxNorm: 373063 Take 1 Tablet(s) Oral QD 07/08/19 021 Inactive Novolog Flexpen U-100 Insulin aspart 100 unit/mL (3 mL) subcutaneous RxNorm: 4061005 Inject 85 Unit(s) Subcutaneous TID 07/08/19 022 Inactive pravastatin 80 mg tablet RxNorm: 841534 Take 1 Tablet(s) Oral QHS every night at bedtime 07/08/19 023 Inactive clotrimazole 1 % topical cream RxNorm: 054498 Apply to bilateral groin areas Topical BID 07/08/19 022 Inactive metoprolol succinate ER 200 mg tablet,extended release 24 hr RxNorm: 383873 Take 1 Tablet(s) Oral QD 07/08/19 021 Inactive Vitamin D3 25 mcg (1,000 unit) tablet RxNorm: 865749 Take 1 Tablet(s) Oral QD 07/08/19 021 Inactive isosorbide dinitrate 30 mg tablet RxNorm: 184937 Take 1 Tablet(s) Oral QD 07/08/19 21 021 Inactive Levemir FlexTouch U-100 Insulin 100 unit/mL (3 mL) subcutaneous pen RxNorm: 608145 Inject 140 Unit(s) Subcutaneous BID 07/08/19 021 Inactive torsemide 20 mg tablet RxNorm: 557876 Take 1 Tablet(s) Oral QD 07/08/19 023 Inactive venlafaxine 75 mg tablet RxNorm: 371699 Take 1 Tablet(s) Oral QD 07/08/19 021 Inactive acetaminophen 500 mg tablet RxNorm: 589246 Take 1 Tablet(s) Oral TID as needed for headache 06/18/19 021 Inactive acetaminophen 500 mg tablet RxNorm: 885822 Take 1 Tablet(s) Oral TID as needed for headache 06/18/19 021 Inactive Lyrica 100 mg capsule RxNorm: 537518 Take 1 Capsule(s) Oral QHS every night at bedtime 06/11/19 021 Inactive Lyrica 50 mg capsule RxNorm: 383135 Take 1 Capsule(s) Oral QAM every morning 06/10/19 21 021 Inactive hydrocortisone 2.5 % topical cream RxNorm: 942590 Apply to bilateral groin creases Topical BID 05/15/20 20 021 Inactive clotrimazole 1 % topical cream RxNorm: 702624 Apply to bilateral groin areas Topical BID 05/15/20 20 Inactive Lyrica 50 mg capsule RxNorm: 623412 Take 1 Capsule(s) Oral QAM every morning 05/14/20 20 Inactive Lyrica 100 mg capsule RxNorm: 110123 Take 1 Capsule(s) Oral QHS every night [...] Inactive Nystop 100,000 unit/gram topical powder RxNorm: 073257 Apply to abd folds, under breasts and L side of groin Topical BID x 14 days, then BID PRN 04/08/20 20 020 Inactive dx: yeast dermatitis Lyrica 100 mg capsule RxNorm: 980524 Take 1 Capsule(s) Oral QHS every night at bedtime 03/13/20 20 020 Inactive Lyrica 50 mg capsule RxNorm: 878662 Take 1 Capsule(s) Oral QAM every morning 03/13/20 20 10/28/2 020 Inactive ketoconazole 2 % shampoo RxNorm: 974919 Apply Topical two times a week with showers 03/11/20 20 Inactive cholecalciferol (vitamin D3) 50 mcg (2,000 unit) tablet RxNorm: 890905 Take 1 Tablet(s) Oral QD 03/11/20 20 021 Inactive Zetia 10 mg tablet RxNorm: 374388 Take 1 Tablet(s) Oral QD 03/07/20 20 Inactive Zetia 10 mg tablet RxNorm: 328167 Take 1 Tablet(s) Oral QD 03/07/20 20 Inactive Lyrica 50 mg capsule RxNorm: 590979 Take 1 Capsule(s) Oral QAM every morning 02/15/20 20 Inactive Lyrica 100 mg capsule RxNorm: 692349 Take 1 Capsule(s) Oral QHS every night at bedtime 02/15/20 Inactive Lyrica 100 mg capsule RxNorm: 988020 Take 1 Capsule(s) Oral QHS every night at bedtime 02/15/20 20 Inactive Lyrica 50 mg capsule RxNorm: 798442 Take 1 Capsule(s) Oral QAM every morning 02/15/20 20 Inactive metoprolol succinate ER 200 mg tablet,extended release 24 hr RxNorm: 999869 Take 1 Tablet(s) Oral QD 08/12/19 23 Active loperamide 2 mg capsule RxNorm: 918976 Take 1 Capsule(s) Oral QID as needed 06/12/19 22 Active hydralazine 50 mg tablet RxNorm: 749003 Take 1 Tablet(s) Oral QID 08/12/19 23 Active venlafaxine ER 75 mg capsule,extended release 24 hr RxNorm: 528971 Take 3 Capsule(s) Oral QD 06/12/19 22 023 Inactive polyethylene glycol 3350 17 gram/dose oral powder RxNorm: 821109 Take 17=1 capful Gram(s) Oral BID as needed mix with 4-8oz of liquid 06/12/19 22 024 Inactive icosapent ethyl 1 gram capsule RxNorm: 0780006 Take 2 Capsule(s) (2 gm) Oral BID with meals 10/07/19 23 023 Inactive Okay to dispense one 2gm tab if you have that available. Levemir FlexTouch U-100 Insulin 100 unit/mL (3 mL) subcutaneous pen RxNorm: 582520 Inject 80 Unit(s) Subcutaneous BID 07/14/19 23 023 Inactive Novolog Flexpen U-100 Insulin aspart 100 unit/mL (3 mL) subcutaneous RxNorm: [id number] Insert 30 Unit(s) Subcutaneous TID with meals 10/08/19 22 022 Inactive Medication Administered No Medication Administered data Reason For Visit No Reason For Visit data Plan of Care Planned Activity Notes Codes Status Date Referral: [facility] [phone] [facility] [facility] [facility] [address] [id number] [place] Referral Records Received 09/21/2022 Referral: [facility] WPtel: [phone] [facility] [address] [id number] [place] Referral Completed 05/28/2021 Referral: General Cardiology [...] attention.??Sister Jyotsna involved in his care cell# [phone]??Guardian: Don (tapan met in person 09/01/21), now has Lexii (same group as don)Lab Schedule: Mar-/September*September (CBC with diff, CMP, A1c) (Novemebr: CBC, CMP, A1c, Lipids, VitD) 10/08/2023
--- OUTSIDE RECORDS SUMMARY | 2023-11-03 10:24 | XMS_ITS | CCD ---
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 Role Phone Arpitmichelle MCKINLEY-[facility] Primary Care Provider Leona vailable [facility] PRACT[facility] Chronic Care Management U navailable Summary Purpose DataExchange Insurance Providers Payer name Policy type / Coverage type Covered democrat ID Effective Begin Date Effective End Date [place] Part B [id number] Unknown Unknown [place] Medicare Part B [id number] Unknown Unknown Family history Sister Brittany Suggs [...] Halfway 09/03/[address]: 7257945 Non-Smoker / No History of Smoking 09/02/[address]: 119403841 No Alcohol Consum ption 09/02/2020 Allergies, Adverse Reactions, Alerts Substance Reaction Codes Entered Date Inactivated Date Status LISINOPRIL RxNorm: 54882 02/12/2020 No Inactive Da te Active Metformin [...] F33. 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 Radha Enrique U-100 Insulin 100 unit/mL (3 mL) subcutaneous RxNorm: 0867623 Inject 30U SubQ twice daily 07/07/19 24 025 Active Please dispense one month supply. pregabalin 150 mg capsule RxNorm: 293929 Take 1 Capsule(s) Oral QHS every night at bedtime 07/05/19 24 024 Active pregabalin 150 mg capsule RxNorm: 862557 Take 1 Capsule(s) Oral QHS every night at bedtime 07/05/19 24 024 Inactive polyethylene glycol 3350 17 gram/dose oral powder RxNorm: 514555 Take 1 Packet Oral QD as needed (1 packet = 17g) mix with 4-8oz of liquid 06/15/19 24 024 Inactive bisacodyl 10 mg rectal suppository RxNorm: 038157 Insert one suppository per rectum once daily as needed for constipation 06/15/19 24 024 Inactive bisacodyl 10 mg rectal suppository RxNorm: 109976 Insert one suppository per rectum once daily as needed for constipation 06/15/19 24 024 Inactive pregabalin 100 mg capsule RxNorm: 450404 Take 1 Capsule(s) Oral QAM every morning 04/27/20 23 024 Inactive Levemir FlexPen 100 unit/mL (3 mL) solution subcutaneous insulin pen RxNorm: 709066 Inject 30 Unit(s) Subcutaneous BID 04/27/20 23 024 Inactive rosuvastatin 40 mg tablet RxNorm: 363090 Take 1 Tablet(s) Oral QPM every evening 04/16/20 23 024 Inactive D/C rosuvastatin 20mg venlafaxine ER 75 mg capsule,extended release 24 hr RxNorm: 869154 Take 3 Capsule(s) Oral QD 04/14/20 23 023 Inactive pregabalin 100 mg capsule RxNorm: 461788 Take 1 Capsule(s) Oral QAM every morning [...] meter clotrimazole 1 % topical cream RxNorm: 709287 Take apply topically to abdominal folds twice daily for 14 days 03/12/20 024 Inactive Ozempic 1 mg/dose (4 mg/3 mL) subcutaneous pen injector RxNorm: 2945084 Inject 1 Milligram(s) Subcutaneous QW once a week 03/11/20 023 Inactive rosuvastatin 20 mg tablet RxNorm: 852474 Take 1 Tablet(s) Oral QD 02/26/20 023 Inactive d/c pravastatin 80mg Ozempic 1 mg/dose (4 mg/3 mL) subcutaneous pen injector RxNorm: 3099309 Inject 1 Milligram(s) Subcutaneous QW once a week 02/20/20 023 Inactive pregabalin 150 mg capsule RxNorm: 134680 Take 1 Capsule(s) Oral HS at bed time 02/19/20 23 023 Inactive pregabalin 100 mg capsule RxNorm: 165280 Take 1 Capsule(s) Oral QAM every morning 02/18/20 23 023 Inactive FreeStyle Chema 2 Sensor kit RxNorm: use as directed 02/04/20 23 024 Inactive venlafaxine ER 75 mg capsule,extended release 24 hr RxNorm: 785279 Take 3 Capsule(s) Oral QD 02/04/20 23 023 Inactive FreeStyle Chema 2 Sensor kit RxNorm: use as directed 02/04/20 23 023 Inactive fluconazole 150 mg tablet RxNorm: 637309 Take 1 Tablet(s) Oral on day 3 and on day 6 09/19 024 Active chlorthalidone 25 mg tablet RxNorm: 766437 Take 1 Tablet(s) Oral QAM every morning 02/03/20 No Stop Date Active venlafaxine ER 150 mg capsule,extended release 24 hr RxNorm: 297597 Take 1 Capsule(s) Oral QD 02/03/20 023 Inactive acetaminophen 500 mg tablet RxNorm: 886540 1 TABLET ORALLY 3 TIMES DAILY (MAX APAP:4GM/24HR) 12/15/19 023 Inactive potassium chloride ER 20 mEq tablet,extended release RxNorm: 520294 Take 1 Tablet(s) Oral BID 12/09/19 024 Inactive d/c 20mEq once daily (sent from hospital) clotrimazole 1 % topical cream RxNorm: 096977 apply 1g topically to top of feet and in between toes BID 12/09/19 23 023 Inactive nystatin 100,000 unit/gram topical powder RxNorm: 230110 APPLY TO AFFECTED AREAS TOPICALLY 2 TIMES DAILY 11/21/19 23 024 Inactive Nystop 100,000 unit/gram topical powder RxNorm: 232849 Apply to abd folds, under breasts and L side of groin Topical BID x 14 days, then BID PRN 11/20/19 023 Inactive dx: yeast dermatitis [place] Ultra Strength 4 %-30 %-10 % topical cream RxNorm: 238960 Apply 1 Gram(s) Topical QID PRN to feet and legs for neuropathic pain 11/11/19 024 Active hydrocortisone 2.5 % topical cream RxNorm: 281250 Apply 1/2 Gram(s) Topical BID as needed 11/10/19 23 024 Inactive clotrimazole 1 % topical cream RxNorm: 451006 Apply 1/2 Gram(s) Topical BID Apply to affected areas of groin, periarea, and abdominal topically 2 times daily 11/10/19 23 023 Inactive Humulin R U-500 (Concentrated) Insulin 500 unit/mL subcutaneous soln RxNorm: 889143 Inject 100 Unit(s) Subcutaneous TID 10/07/19 23 024 Inactive Ozempic 0.25 mg or 0.5 mg (2 mg/3 mL) subcutaneous pen injector RxNorm: 8695380 Inject 1/2 Milligram(s) Subcutaneous QW once a week 10/07/19 024 Inactive Levemir FlexPen 100 unit/mL (3 mL) solution subcutaneous insulin pen RxNorm: 989037 Inject 30 Unit(s) Subcutaneous BID 10/07/19 023 Inactive aripiprazole 15 mg tablet RxNorm: 106995 1/2 TAB (7.5MG) ORALLY DAILY (DX:MAJOR DEPRESSIVE DISORDER) 09/23/19 023 Inactive Lancets,Thin 28 gauge RxNorm: Use 1 as directed QID 09/15/19 024 Inactive Accu-Chek Guide test strips RxNorm: Use 1 Test Strip QID 09/15/19 023 Inactive ok to substitute with any covered alternative test strip torsemide 20 mg tablet RxNorm: 589303 Take 1 Tablet(s) Oral BID 09/09/19 024 Inactive d/c once daily dosing carvedilol 25 mg tablet RxNorm: 038940 Take 1 Tablet(s) Oral QD 08/25/19 024 Inactive pregabalin 150 mg capsule RxNorm: 595575 1 Capsule(s) Oral HS at bed time 08/18/19 023 Inactive pregabalin 100 mg capsule RxNorm: 093813 1 Capsule(s) Oral QAM every morning 08/18/19 023 Inactive carvedilol 25 mg tablet RxNorm: 066113 1 Tablet(s) Oral QD 07/28/19 023 Inactive lisinopril 20 mg tablet RxNorm: 717881 Give 1 Tablet(s) Oral QD 07/28/19 023 Inactive Lyrica 150 mg capsule RxNorm: 137299 Take 1 Capsule(s) Oral QHS every night at bedtime 07/19/19 023 Inactive d/c 100mg dose Diflucan 150 mg tablet RxNorm: 975375 Take 1 Tablet(s) Oral QD repeat on day 3 and 6 07/19/19 23 023 Inactive pregabalin 100 mg capsule RxNorm: 125809 Take 1 Capsule(s) Oral QAM every morning 07/19/19 23 023 Inactive gatifloxacin 0.5 % eye drops RxNorm: 277324 Instill 1 Drop(s) as directed TID Instill 1 drop in to affected eye(s) starting 1 day prior to surgery and continue until gone (do not exceed 4 weeks). 07/13/19 23 023 Inactive carvedilol 25 mg tablet RxNorm: 569387 2 Tablet(s) Oral BID 07/13/19 23 023 Inactive Humulin R Regular U-100 Insulin 100 unit/mL injection solution RxNorm: 279269 85 Unit(s) Injection TID 07/13/19 23 023 Inactive ketorolac 0.5 % eye drops RxNorm: 585423 Instill 1 Drop(s) as directed QID Instill 1 drop into affected eye(s) 4 times daily starting 1 day prior to surgery and continue until gone (do not exceed 4 weeks). 07/13/19 23 023 Inactive Diflucan 150 mg tablet RxNorm: 992596 Take 1 Tablet(s) Oral QD repeat on day 3 and 6 06/30/19 23 023 Inactive Accu-Chek Guide test strips RxNorm: Use 1 Test Strip QID Use 1 test strip to monitor blood glucose 4 times daily and as needed. Dx:E11.42. 06/23/19 23 023 Inactive ok to substitute with any covered alternative test strip dextromethorphan-gu aifenesin 10 mg-100 mg/5 mL oral liquid RxNorm: 644091 Take 10 Milliliter(s) Oral every 4 hours as needed for cough 06/19/19 23 023 Inactive dextromethorphan-gu aifenesin 10 mg-100 mg/5 mL oral liquid RxNorm: 006946 Take 10 Milliliter(s) Oral every 4 hours as needed for cough 06/19/19 23 023 Inactive Lyrica 150 mg capsule RxNorm: 348875 Take 1 Capsule(s) Oral QHS every night at bedtime 06/18/19 023 Inactive d/c 100mg dose aripiprazole 15 mg tablet RxNorm: 682018 1/2 TAB (7.5MG) ORALLY DAILY (DX:MAJOR DEPRESSIVE DISORDER) 06/05/19 023 Inactive pregabalin 100 mg capsule RxNorm: 678566 1 Capsule(s) Oral QAM every morning 06/02/19 023 Inactive Banophen 50 mg capsule RxNorm: 1790956 Take 1 Capsule(s) Oral Q6H every 6 hours as needed 05/19/19 No Stop Date Active Novolog Flexpen U-100 Insulin aspart 100 unit/mL (3 mL) subcutaneous RxNorm: 1834065 Inject 10 Unit(s) Subcutaneous QHS every night at bedtime with nighttime snack 04/08/20 022 Inactive Novolog Flexpen U-100 Insulin aspart 100 unit/mL (3 mL) subcutaneous RxNorm: 2705267 Inject 42 Unit(s) Subcutaneous TID in addition to sliding scale 04/08/20 022 Inactive d/c 36u albuterol sulfate HFA 90 mcg/actuation aerosol inhaler RxNorm: 0048660 Take 2 Puff(s) Inhalation Q4H every four hours as needed as needed for SOB, cough, or wheezing 04/07/20 030 Active Banophen 50 mg capsule RxNorm: 6210401 Take 1 Capsule(s) Oral Q6H every 6 hours as needed 04/06/20 023 Inactive diphenhydramine 50 mg tablet RxNorm: 2889828 Take 1 Tablet(s) Oral Q6H every 6 hours as needed 04/06/20 22 022 Inactive diphenhydramine 50 mg tablet RxNorm: 8384282 1 Tablet(s) Oral Q6H every 6 hours as needed 04/06/20 22 022 Inactive Abilify 15 mg tablet RxNorm: 672788 1/2 Tablet(s) Oral QD 03/10/20 22 023 Inactive Shingrix (PF) 50 mcg/0.5 mL intramuscular suspension, kit RxNorm: 4844155 Administer 1/2 Milliliter(s) Intramuscular QD one time shingrix step 2 ( step 1 given 11/04/21) WITH needle - Nursing please administer upon arrival and once administered post a bridge message with date of administration, pediatric orthodontist, expiration date, and lot# so we can update [facility] 02/18/20 22 022 Inactive dispense with needle Shingrix (PF) 50 mcg/0.5 mL intramuscular suspension, kit RxNorm: 8041776 Administer 1/2 Milliliter(s) Intramuscular QD one time shingrix step 2 ( step 1 given 11/04/21) WITH needle - Nursing please administer upon arrival and once administered post a bridge message with date of administration, pediatric orthodontist, expiration date, and lot# so we can update [facility] 02/18/20 22 022 Inactive dispense with needle polyethylene glycol 3350 17 gram/dose oral powder RxNorm: 308371 Take 17=1 capful Gram(s) Oral QD mix with 4-8oz of liquid 01/08/20 22 023 Inactive take this in addition to BID prn order Lyrica 100 mg capsule RxNorm: 807056 Take 1 Capsule(s) Oral QAM every morning 01/08/20 22 022 Inactive d/c 50mg dose acetaminophen 500 mg tablet RxNorm: 932459 Take 1 Tablet(s) Oral TID 01/08/20 22 022 Inactive d/c PRN order Lyrica 150 mg capsule RxNorm: 124586 Take 1 Capsule(s) Oral QHS every night at bedtime 01/08/20 22 023 Inactive d/c 100mg dose Abilify 5 mg tablet RxNorm: 887972 Take 1 Tablet(s) Oral QD take 1 tab po QD #30 refill 5 dx: MDD 12/12/19 22 022 Inactive Abilify 5 mg tablet RxNorm: 008009 Take 1 Tablet(s) Oral QD take 1 tab po QD #30 refill 5 dx: MDD 12/12/19 22 022 Inactive Novolog Flexpen U-100 Insulin aspart 100 unit/mL (3 mL) subcutaneous RxNorm: 9301397 Inject 42 Unit(s) Subcutaneous TID in addition to sliding scale 12/10/19 22 022 Inactive d/c 36u chlorthalidone 25 mg tablet RxNorm: 614511 Take 1 Tablet(s) Oral QAM every morning 12/10/19 22 023 Inactive pregabalin 50 mg capsule RxNorm: 174313 Take 1 Capsule(s) Oral QAM every morning 11/12/19 22 022 Inactive tetanus-diphtheria toxoids-Td 2 Lf unit-2 Lf unit/0.5 mL IM suspension RxNorm: 139 Take 0.5 Miscellaneous Intramuscular 11/12/19 22 022 Inactive need tdap - nursing to administer upon arrival pregabalin 50 mg capsule RxNorm: 078815 Take 1 Capsule(s) Oral QAM every morning 10/16/19 22 022 Inactive pregabalin 50 mg capsule RxNorm: 486325 Take 1 Capsule(s) Oral QAM every morning 10/16/19 22 022 Inactive pregabalin 50 mg capsule RxNorm: 610432 1 Capsule(s) Oral QAM every morning 10/15/19 22 022 Inactive Shingrix (PF) 50 mcg/0.5 mL intramuscular suspension, kit RxNorm: 2450800 Administer 1/2 Milliliter(s) Intramuscular one time Nursing please administer upon arrival and once administered post a bridge message with date of administration, pediatric orthodontist, expiration date, and lot# so we can update [facility]. 10/09/19 22 022 Inactive shingrix step 1 Shingrix (PF) 50 mcg/0.5 mL intramuscular suspension, kit RxNorm: 2634123 Administer 1/2 Milliliter(s) Intramuscular one time Nursing please administer upon arrival and once administered post a bridge message with date of administration, pediatric orthodontist, expiration date, and lot# so we can update [facility]. 10/09/19 22 022 Inactive shingrix step 1 cholecalciferol (vitamin D3) 1,250 mcg (50,000 unit) capsule RxNorm: 206550 Take 1 Capsule(s) Oral QW once a [...] aspart 100 unit/mL (3 mL) subcutaneous RxNorm: 6705560 Inject 10 Unit(s) Subcutaneous QHS every night at bedtime with nighttime snack 10/08/19 22 Inactive Shingrix (PF) 50 mcg/0.5 mL intramuscular suspension, kit RxNorm: 0788106 ADMINISTER 2-DOSE SERIES PER CDC GUIDELINES 10/08/19 22 Active Shingrix (PF) 50 mcg/0.5 mL intramuscular suspension, kit RxNorm: 1609984 ADMINISTER 2-DOSE SERIES PER CDC GUIDELINES 10/08/19 22 Inactive Novolog Flexpen U-100 Insulin aspart 100 unit/mL (3 mL) subcutaneous RxNorm: 2061497 Inject 36 Unit(s) Subcutaneous TID in addition to sliding scale 10/08/19 22 Inactive Novofine Autocover 30 gauge x 1/3 needle RxNorm: Use 1 Miscellaneous UD as directed Use 1 needle as directed to administer insulin 5 times a day Dx:E11.42. 10/03/19 Inactive ok to substitute with any covered alternative pen needle benzoyl peroxide 10 % topical cleanser RxNorm: 041642 Apply 1 Application Topical QD apply to face, wash rinse and dry once daily (may change to QOD if drying) 08/19/19 22 022 Inactive (%covered by insurance) #60ml refill 11 dx: acne benzoyl peroxide 10 % topical cleanser RxNorm: 408468 Apply 1 Application Topical QD apply to face, wash rinse and dry once daily (may change to QOD if drying) 08/19/19 22 022 Inactive (%covered by insurance) #60ml refill 11 dx: acne benzoyl peroxide 10 % topical cleanser RxNorm: 048452 Apply 1 Application Topical QD apply to face, wash rinse and dry once daily (may change to QOD if drying) 08/19/19 22 022 Inactive (%covered by insurance) #60ml refill 11 dx: acne Lyrica 50 mg capsule RxNorm: 022314 Take 1 Capsule(s) Oral QAM every morning Take 1 capsule by mouth once daily 08/19/19 22 022 Inactive benzoyl peroxide 10 % topical cleanser RxNorm: 319667 Apply 1 Application Topical QD apply to face, wash rinse and dry once daily (may change to QOD if drying) 08/19/19 22 022 Inactive (%covered by insurance) #60ml refill 11 dx: acne Lyrica 100 mg capsule RxNorm: 212154 Take 1 Capsule(s) Oral QHS every night at bedtime Take 1 capsule by mouth once daily at bedtime 08/19/19 22 022 Inactive Lyrica 100 mg capsule RxNorm: 275178 Take 1 Capsule(s) Oral QHS every night at bedtime Take 1 capsule by mouth once daily at bedtime 08/16/19 22 Inactive Lyrica 50 mg capsule RxNorm: 439664 Take 1 Capsule(s) Oral QAM every morning Take 1 capsule by mouth once daily 08/16/19 22 022 Inactive Levemir FlexTouch U-100 Insulin 100 unit/mL (3 mL) subcutaneous pen RxNorm: 092499 Inject 86 Unit(s) Subcutaneous BID 08/05/19 22 022 Inactive d/c 83units BID Lyrica 100 mg capsule RxNorm: 492602 Take 1 Capsule(s) Oral QHS every night at bedtime Take 1 capsule by mouth once daily at bedtime 07/14/19 22 022 Inactive Lyrica 50 mg capsule RxNorm: 057519 Take 1 Capsule(s) Oral QAM every morning Take 1 capsule by mouth once daily 07/14/19 22 022 Inactive Levemir FlexTouch U-100 Insulin 100 unit/mL (3 mL) subcutaneous pen RxNorm: 231574 Inject 83 Unit(s) Subcutaneous BID 07/08/19 22 [...] 30 mg tablet,extended release 24 hr RxNorm: 125564 Take 1 Tablet(s) Oral QD 05/05/20 21 024 Inactive hydralazine 50 mg tablet RxNorm: 355316 Take 1 Tablet(s) Oral QID 05/05/20 21 022 Inactive venlafaxine ER 225 mg tablet,extended release 24 hr RxNorm: 997602 Take 1 Tablet(s) Oral QD 05/05/20 21 021 Inactive venlafaxine ER 225 mg tablet,extended release 24 hr RxNorm: 243820 Take 1 Tablet(s) Oral QD 05/05/20 022 Inactive hydralazine 50 mg tablet RxNorm: 751076 Take 1 Tablet(s) Oral QID 05/05/20 21 021 Inactive aspirin 81 mg tablet,delayed release RxNorm: 652655 Take 1 Tablet(s) Oral QD 03/31/20 022 Inactive Zetia 10 mg tablet RxNorm: 619607 Take 1 Tablet(s) Oral QD 03/31/20 024 Inactive Vitamin D2 1,250 mcg (50,000 unit) capsule RxNorm: 3097384 Take 1 Capsule(s) Oral QW once a week x 12 weeks 03/31/20 022 Inactive Vitamin D2 1,250 mcg (50,000 unit) capsule RxNorm: 2710270 Take 1 Capsule(s) Oral QW once a week 03/31/20 021 Inactive Zetia 10 mg tablet RxNorm: 087628 Take 1 Tablet(s) Oral QD 03/31/20 021 Inactive hydralazine 25 mg tablet RxNorm: 972665 Take 1 Tablet(s) Oral QID 03/31/20 021 Inactive hydralazine 25 mg tablet RxNorm: 871284 Take 1 Tablet(s) Oral QID 03/31/20 021 Inactive hydralazine 10 mg tablet RxNorm: 900015 Take 1 Tablet(s) Oral QID 03/03/20 021 Inactive cephalexin 500 mg tablet RxNorm: 422266 Take 1 Tablet(s) Oral QID 02/27/20 021 Inactive cephalexin 500 mg tablet RxNorm: 944521 Take 1 Tablet(s) Oral QID 02/27/20 021 Inactive lisinopril 40 mg tablet RxNorm: 778935 Take 1 Tablet(s) Oral QD 02/11/20 21 023 Inactive Eliquis 5 mg tablet RxNorm: 3781234 Take 1 Tablet(s) Oral BID 01/05/20 21 022 Inactive Eliquis 5 mg tablet RxNorm: 8921853 Take 2 Tablet(s) Oral QD 01/01/20 21 021 Inactive Lyrica 50 mg capsule RxNorm: 376908 Take 1 Capsule(s) Oral QAM every morning 12/24/19 021 Inactive Lyrica 100 mg capsule RxNorm: 167146 Take 1 Capsule(s) Oral QHS every night at bedtime 12/24/19 021 Inactive clotrimazole 1 % topical cream RxNorm: 705895 Apply to right foot and toes Topical BID 12/04/19 21 023 Inactive metoprolol succinate ER 200 mg tablet,extended release 24 hr RxNorm: 650725 Take 1 Tablet(s) Oral QD 12/04/19 023 Inactive ciprofloxacin 500 mg tablet RxNorm: 796196 Take 1 Tablet(s) Oral QD 11/30/19 021 Inactive DX ofloxacin otic drops Accu-Chek Guide test strips RxNorm: USE 1 TO CHECK GLUCOSE 4 TIMES DAILY AND NEEDED 11/15/19 21 023 Inactive Blood Glucose Test strips RxNorm: Use 1 Test Strip QID at PRN 11/05/19 21 023 Inactive E11.42 lisinopril 30 mg tablet RxNorm: 589658 Take 1 Tablet(s) Oral QD 10/30/19 021 Inactive lisinopril 20 mg tablet RxNorm: 337440 Take 1 Tablet(s) Oral QD 10/23/19 021 Inactive lisinopril 20 mg tablet RxNorm: 684472 Take 1 Tablet(s) Oral QD 10/23/19 21 021 Inactive lisinopril 10 mg tablet RxNorm: 616197 Take 1 Tablet(s) Oral QD 10/02/19 21 021 Inactive icosapent ethyl 1 gram capsule RxNorm: 9660891 Take 2 Capsule(s) (2 gm) Oral BID with meals 04/28/ 024 Inactive Okay to dispense one 2gm tab if you have that available. icosapent ethyl 1 gram capsule RxNorm: 3009791 Take 2 Capsule(s) Oral BID 09/12/19 21 021 Inactive Okay to dispense one 2gm tab if you have that available. amlodipine 10 mg tablet RxNorm: 096748 Take 1 Tablet(s) Oral QD 09/04/19 022 Inactive aspirin 81 mg tablet,delayed release RxNorm: 982374 Take 1 Tablet(s) Oral QD 09/04/19 21 021 Inactive Levemir FlexTouch U-100 Insulin 100 unit/mL (3 mL) subcutaneous pen RxNorm: 096229 Inject 150 Unit(s) Subcutaneous BID 09/04/19 022 Inactive venlafaxine ER 150 mg tablet,extended release 24 hr RxNorm: 129139 Take 1 Tablet(s) Oral QD 09/04/19 021 Inactive clotrimazole-betame thasone 1 %-0.05 % topical cream RxNorm: 256770 Apply to rash on red area on left abdomen/chest Topical BID 08/10/19 21 Inactive amlodipine 5 mg tablet RxNorm: 704225 Take 1 Tablet(s) Oral QD 07/31/19 21 021 Inactive cephalexin 500 mg tablet RxNorm: 175426 Take 1 Tablet(s) Oral BID BID - Twice Daily 07/31/19 021 Inactive Start 08/01/20 pantoprazole 40 mg tablet,delayed release RxNorm: 601465 Take 1 Tablet(s) Oral QAM every morning 07/08/19 022 Inactive senna 8.6 mg tablet RxNorm: 248132 Take 1 Tablet(s) Oral QD 07/08/19 022 Inactive carbamazepine 200 mg tablet RxNorm: 115453 Take 1 Tablet(s) Oral BID 07/08/19 022 Inactive clopidogrel 75 mg tablet RxNorm: 380687 Take 1 Tablet(s) Oral QD 07/08/19 021 Inactive Blood Glucose Test strips RxNorm: Use 1 Test Strip QID at PRN 07/08/19 21 021 Inactive E11.42 Novolog Flexpen U-100 Insulin aspart 100 unit/mL (3 mL) subcutaneous RxNorm: 6225864 Administer per sliding scale Milliliter(s) Subcutaneous TID 151-200: 10 u; 201-250: 20 u; 251-300: 30 u; 301-350: 40 u; 351-400: 50 u. 07/08/19 21 022 Inactive lisinopril 5 mg tablet RxNorm: 694102 Take 1 Tablet(s) Oral QD 07/08/19 21 021 Inactive Novolog Flexpen U-100 Insulin aspart 100 unit/mL (3 mL) subcutaneous RxNorm: 3857877 Inject 85 Unit(s) Subcutaneous TID 07/08/19 022 Inactive pravastatin 80 mg tablet RxNorm: 884089 Take 1 Tablet(s) Oral QHS every night at bedtime 07/08/19 023 Inactive clotrimazole 1 % topical cream RxNorm: 027163 Apply to bilateral groin areas Topical BID 07/08/19 022 Inactive metoprolol succinate ER 200 mg tablet,extended release 24 hr RxNorm: 010244 Take 1 Tablet(s) Oral QD 07/08/19 21 021 Inactive Vitamin D3 25 mcg (1,000 unit) tablet RxNorm: 028849 Take 1 Tablet(s) Oral QD 07/08/19 021 Inactive isosorbide dinitrate 30 mg tablet RxNorm: 789019 Take 1 Tablet(s) Oral QD 07/08/19 021 Inactive Levemir FlexTouch U-100 Insulin 100 unit/mL (3 mL) subcutaneous pen RxNorm: 993844 Inject 140 Unit(s) Subcutaneous BID 07/08/19 21 021 Inactive torsemide 20 mg tablet RxNorm: 638562 Take 1 Tablet(s) Oral QD 07/08/19 21 023 Inactive venlafaxine 75 mg tablet RxNorm: 886494 Take 1 Tablet(s) Oral QD 07/08/19 21 021 Inactive acetaminophen 500 mg tablet RxNorm: 622300 Take 1 Tablet(s) Oral TID as needed for headache 06/18/19 21 021 Inactive acetaminophen 500 mg tablet RxNorm: 459517 Take 1 Tablet(s) Oral TID as needed for headache 06/18/19 21 021 Inactive Lyrica 100 mg capsule RxNorm: 786935 Take 1 Capsule(s) Oral QHS every night at bedtime 06/11/19 21 021 Inactive Lyrica 50 mg capsule RxNorm: 562038 Take 1 Capsule(s) Oral QAM every morning 06/10/19 21 021 Inactive hydrocortisone 2.5 % topical cream RxNorm: 727244 Apply to bilateral groin creases Topical BID 05/15/20 20 021 Inactive clotrimazole 1 % topical cream RxNorm: 817755 Apply to bilateral groin areas Topical BID 05/15/20 20 021 Inactive Lyrica 50 mg capsule RxNorm: 031036 Take 1 Capsule(s) Oral QAM every morning 05/14/20 20 020 Inactive Lyrica 100 mg capsule RxNorm: 483457 Take 1 Capsule(s) Oral QHS every night [...] Inactive Nystop 100,000 unit/gram topical powder RxNorm: 794431 Apply to abd folds, under breasts and L side of groin Topical BID x 14 days, then BID PRN 04/08/20 20 Inactive dx: yeast dermatitis Lyrica 100 mg capsule RxNorm: 631060 Take 1 Capsule(s) Oral QHS every night at bedtime 03/13/20 20 Inactive Lyrica 50 mg capsule RxNorm: 501152 Take 1 Capsule(s) Oral QAM every morning 03/13/20 20 Inactive ketoconazole 2 % shampoo RxNorm: 833696 Apply Topical two times a week with showers 03/11/20 20 Inactive cholecalciferol (vitamin D3) 50 mcg (2,000 unit) tablet RxNorm: 531292 Take 1 Tablet(s) Oral QD 03/11/20 20 Inactive Zetia 10 mg tablet RxNorm: 756904 Take 1 Tablet(s) Oral QD 03/07/20 20 Inactive Zetia 10 mg tablet RxNorm: 156888 Take 1 Tablet(s) Oral QD 03/07/20 20 Inactive Lyrica 50 mg capsule RxNorm: 809531 Take 1 Capsule(s) Oral QAM every morning 02/15/20 20 Inactive Lyrica 100 mg capsule RxNorm: 147388 Take 1 Capsule(s) Oral QHS every night at bedtime 02/15/20 20 Inactive Lyrica 100 mg capsule RxNorm: 977455 Take 1 Capsule(s) Oral QHS every night at bedtime 02/15/20 20 Inactive Lyrica 50 mg capsule RxNorm: 082488 Take 1 Capsule(s) Oral QAM every morning 02/15/20 20 Inactive metoprolol succinate ER 200 mg tablet,extended release 24 hr RxNorm: 721547 Take 1 Tablet(s) Oral QD 08/12/19 Active loperamide 2 mg capsule RxNorm: 107272 Take 1 Capsule(s) Oral QID as needed 06/12/19 Active hydralazine 50 mg tablet RxNorm: 750300 Take 1 Tablet(s) Oral QID 08/12/19 23 Active venlafaxine ER 75 mg capsule,extended release 24 hr RxNorm: 925790 Take 3 Capsule(s) Oral QD 06/12/19 22 023 Inactive polyethylene glycol 3350 17 gram/dose oral powder RxNorm: 172844 Take 17=1 capful Gram(s) Oral BID as needed mix with 4-8oz of liquid 06/12/19 22 024 Inactive icosapent ethyl 1 gram capsule RxNorm: 5677627 Take 2 Capsule(s) (2 gm) Oral BID with meals 10/07/19 23 023 Inactive Okay to dispense one 2gm tab if you have that available. Levemir FlexTouch U-100 Insulin 100 unit/mL (3 mL) subcutaneous pen RxNorm: 051353 Inject 80 Unit(s) Subcutaneous BID 07/14/19 23 023 Inactive Novolog Flexpen U-100 Insulin aspart 100 unit/mL (3 mL) subcutaneous RxNorm: 9666995 Insert 30 Unit(s) Subcutaneous TID with meals 10/08/19 22 022 Inactive Medication Administered No Medication Administered data Reason For Visit No Reason For Visit data Plan of Care Planned Activity Notes Codes Status Date Referral: [facility] WPtel: [phone] , [address] [id number] [place] Referral Records Received 09/21/2022 Referral: [facility] WPtel: [address] [id number] [place] Referral Completed 05/28/2021 Referral: General Cardiology [...] [facility] to have closer nursing attention.??Sister Jyotsna involved in his care cell# [phone]??Guardian: Giulia (tapan met in person 09/01/21), now has Lexii (same group as giulia)Lab Schedule: /September*September (CBC with diff, CMP, A1c) (Novemebr: CBC, CMP, A1c, Lipids, VitD) 10/08/2023
--- OUTSIDE RECORDS SUMMARY | 2023-11-03 10:25 | XMS_ITS | CCD ---
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 Care Management U navailable Summary Purpose DataExchange Insurance Providers Payer name Policy type / Coverage type Covered libertarian ID Effective Begin Date Effective End Date Medicare [place] Medicare Part B [id number] Unknown Unknown Medicaid [place] Medicare Part B [id number] Unknown Unknown Family history Sister Brittany Suggs [...] Home 09/03/[address]: 0127561 Non-Smoker / No History of Smoking 09/02/[address]: 346628698 No Alcohol Consum ption 09/02/2020 Allergies, Adverse Reactions, Alerts Substance Reaction Codes Entered Date Inactivated Date Status * NO KNOWN FOOD ALLERGIES Unknown 07/13/2023 No Inactive Date Active LISINOPRIL RxNorm: 39036 02/12/2020 No Inactive Da te Active Metformin HCl Unknown 02/12/2020 No Inactive Cristiano e Active * NO KNOWN ENVIRONMENTAL ALLERGIES Unknown 07/13/2023 No Inactive Date Active Problems Condition Codes Effective Dates Condition St atus Coronary artery disease invo lving samish coronary artery of samish heart, angina presence unspecified ICD-10: I25.10 ICD-9: [...] ICD-10: F81.9 ICD-9: 315.2 03/03/2023 Active 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 ICD-10: Z79.899 ICD-9: [...] Fill Instructions rosuvastatin 40 mg tablet RxNorm: 323552 Take 1 Tablet(s) Oral QPM every evening 07/13/19 24 No Stop Date Active ezetimibe 10 mg tablet RxNorm: 388699 Take 1 Tablet(s) Oral QD 07/13/19 24 No Stop Date Active bisacodyl 10 mg rectal suppository RxNorm: 645472 Insert 1 Suppository Rectal QD as needed 07/13/19 24 No Stop Date Active polyethylene glycol 3350 17 gram/dose oral powder RxNorm: 960236 Take 17 Gram(s) Oral BID as needed mix in 4-8ox water 07/13/19 24 No Stop Date Active ketoconazole 2 % shampoo RxNorm: 001478 Apply 1 Application Topical UD as directed 07/13/19 24 No Stop Date Active aripiprazole 15 mg tablet RxNorm: 674987 Take 1/2 Tablet(s) Oral QD 07/13/19 24 No Stop Date Active Ozempic 1 mg/dose (4 mg/3 mL) subcutaneous pen injector RxNorm: 9001245 Inject 1 Milligram(s) Subcutaneous QW once a week 07/13/19 24 No Stop Date Active Guaifenesin AC 10 mg-100 mg/5 mL oral liquid RxNorm: 923054 Take 10 Milliliter(s) Oral Q4H every four hours as needed 07/13/19 24 No Stop Date Active isosorbide mononitrate ER 60 mg tablet,extended release 24 hr RxNorm: 741043 Take 1 Tablet(s) Oral QD 07/13/19 24 No Stop Date Active ammonium lactate 12 % topical cream RxNorm: 424042 Apply 1 Application Topical BID 07/13/19 24 No Stop Date Active hydrocortisone 2.5 % topical cream RxNorm: 912348 Apply 1 Application Topical BID as needed 07/13/19 24 No Stop Date Active rosuvastatin 20 mg sprinkle capsule RxNorm: 8215349 Take 1 Capsule(s) Oral QD 07/13/19 24 No Stop Date Active Vascepa 1 gram capsule RxNorm: 4284101 Take 2 Capsule(s) Oral BID 07/13/19 24 No Stop Date Active venlafaxine ER 75 mg capsule,extended release 24 hr RxNorm: 547739 Take 3 Capsule(s) Oral QD 07/13/19 24 No Stop Date Active Basaglar KwikPen U-100 Insulin 100 unit/mL (3 mL) subcutaneous RxNorm: 6455320 Inject 30U SubQ twice daily 07/07/19 24 025 Active Please dispense one month supply. Basaglar KwikPen U-100 Insulin 100 unit/mL (3 mL) subcutaneous RxNorm: 5004609 Inject 30U SubQ twice daily 07/07/19 24 024 Inactive Please dispense one month supply. pregabalin 150 mg capsule RxNorm: 236370 Take 1 Capsule(s) Oral QHS every night at bedtime 07/05/19 24 024 Active pregabalin 150 mg capsule RxNorm: 804527 Take 1 Capsule(s) Oral QHS every night at bedtime 07/05/19 24 024 Inactive polyethylene glycol 3350 17 gram/dose oral powder RxNorm: 843800 Take 1 Packet Oral QD as needed (1 packet = 17g) mix with 4-8oz of liquid 06/15/19 24 024 Inactive bisacodyl 10 mg rectal suppository RxNorm: 729165 Insert one suppository per rectum once daily as needed for constipation 06/15/19 24 024 Inactive bisacodyl 10 mg rectal suppository RxNorm: 442292 Insert one suppository per rectum once daily as needed for constipation 06/15/19 24 024 Inactive pregabalin 100 mg capsule RxNorm: 245130 Take 1 Capsule(s) Oral QAM every morning 04/27/20 23 024 Inactive Levemir FlexPen 100 unit/mL (3 mL) solution subcutaneous insulin pen RxNorm: 991837 Inject 30 Unit(s) Subcutaneous BID 04/27/20 23 024 Inactive rosuvastatin 40 mg tablet RxNorm: 786500 Take 1 Tablet(s) Oral QPM every evening 12/01/20 23 02/26/2 024 Inactive D/C rosuvastatin 20mg venlafaxine ER 75 mg capsule,extended release 24 hr RxNorm: 027211 Take 3 Capsule(s) Oral QD 04/14/20 023 Inactive pregabalin 100 mg capsule RxNorm: 439632 Take 1 Capsule(s) Oral QAM every morning [...] meter clotrimazole 1 % topical cream RxNorm: 134407 Take apply topically to abdominal folds twice daily for 14 days 03/12/20 024 Inactive Ozempic 1 mg/dose (4 mg/3 mL) subcutaneous pen injector RxNorm: 5111574 Inject 1 Milligram(s) Subcutaneous QW once a week 03/11/20 023 Inactive rosuvastatin 20 mg tablet RxNorm: 705997 Take 1 Tablet(s) Oral QD 02/26/20 023 Inactive d/c pravastatin 80mg Ozempic 1 mg/dose (4 mg/3 mL) subcutaneous pen injector RxNorm: 0511197 Inject 1 Milligram(s) Subcutaneous QW once a week 02/20/20 23 023 Inactive pregabalin 150 mg capsule RxNorm: 799321 Take 1 Capsule(s) Oral HS at bed time 02/19/20 23 023 Inactive pregabalin 100 mg capsule RxNorm: 394415 Take 1 Capsule(s) Oral QAM every morning 02/18/20 023 Inactive venlafaxine ER 75 mg capsule,extended release 24 hr RxNorm: 084189 Take 3 Capsule(s) Oral QD 09/20/ 023 Inactive FreeStyle Chema 2 Sensor kit RxNorm: use as directed 02/04/20 23 023 Inactive FreeStyle Chema 2 Sensor kit RxNorm: use as directed 02/04/20 024 Inactive fluconazole 150 mg tablet RxNorm: 115402 Take 1 Tablet(s) Oral on day 3 and on day 6 02/03/20 024 Active chlorthalidone 25 mg tablet RxNorm: 433686 Take 1 Tablet(s) Oral QAM every morning 02/03/20 No Stop Date Active venlafaxine ER 150 mg capsule,extended release 24 hr RxNorm: 917516 Take 1 Capsule(s) Oral QD 02/03/20 023 Inactive acetaminophen 500 mg tablet RxNorm: 628577 1 TABLET ORALLY 3 TIMES DAILY (MAX APAP:4GM/24HR) 12/15/19 23 023 Inactive potassium chloride ER 20 mEq tablet,extended release RxNorm: 353799 Take 1 Tablet(s) Oral BID 12/09/19 024 Inactive d/c 20mEq once daily (sent from hospital) clotrimazole 1 % topical cream RxNorm: 186141 apply 1g topically to top of feet and in between toes BID 12/09/19 23 023 Inactive nystatin 100,000 unit/gram topical powder RxNorm: 834503 APPLY TO AFFECTED AREAS TOPICALLY 2 TIMES DAILY 11/21/19 23 024 Inactive Nystop 100,000 unit/gram topical powder RxNorm: 858922 Apply to abd folds, under breasts and L side of groin Topical BID x 14 days, then BID PRN 11/20/19 23 023 Inactive dx: yeast dermatitis Bengay Ultra Strength 4 %-30 %-10 % topical cream RxNorm: 804903 Apply 1 Gram(s) Topical QID PRN to feet and legs for neuropathic pain 11/11/19 23 024 Active hydrocortisone 2.5 % topical cream RxNorm: 388810 Apply 1/2 Gram(s) Topical BID as needed 11/10/19 23 024 Inactive clotrimazole 1 % topical cream RxNorm: 261665 Apply 1/2 Gram(s) Topical BID Apply to affected areas of groin, periarea, and abdominal topically 2 times daily 11/10/19 23 023 Inactive Humulin R U-500 (Concentrated) Insulin 500 unit/mL subcutaneous soln RxNorm: 464580 Inject 100 Unit(s) Subcutaneous TID 10/07/19 024 Inactive Levemir FlexPen 100 unit/mL (3 mL) solution subcutaneous insulin pen RxNorm: 603126 Inject 30 Unit(s) Subcutaneous BID 10/07/19 023 Inactive Ozempic 0.25 mg or 0.5 mg (2 mg/3 mL) subcutaneous pen injector RxNorm: 8945437 Inject 1/2 Milligram(s) Subcutaneous QW once a week 10/07/19 024 Inactive aripiprazole 15 mg tablet RxNorm: 702435 1/2 TAB (7.5MG) ORALLY DAILY (DX:MAJOR DEPRESSIVE DISORDER) 09/23/19 023 Inactive Lancets,Thin 28 gauge RxNorm: Use 1 as directed QID 09/15/19 23 024 Inactive Accu-Chek Guide test strips RxNorm: Use 1 Test Strip QID 09/15/19 23 023 Inactive ok to substitute with any covered alternative test strip torsemide 20 mg tablet RxNorm: 318143 Take 1 Tablet(s) Oral BID 09/09/19 024 Inactive d/c once daily dosing carvedilol 25 mg tablet RxNorm: 892654 Take 1 Tablet(s) Oral QD 08/25/19 23 024 Inactive pregabalin 150 mg capsule RxNorm: 934301 1 Capsule(s) Oral HS at bed time 08/18/19 023 Inactive pregabalin 100 mg capsule RxNorm: 429757 1 Capsule(s) Oral QAM every morning 08/18/19 023 Inactive carvedilol 25 mg tablet RxNorm: 235744 1 Tablet(s) Oral QD 07/28/19 23 023 Inactive lisinopril 20 mg tablet RxNorm: 519458 Give 1 Tablet(s) Oral QD 07/28/19 23 023 Inactive Lyrica 150 mg capsule RxNorm: 127329 Take 1 Capsule(s) Oral QHS every night at bedtime 07/19/19 23 023 Inactive d/c 100mg dose Diflucan 150 mg tablet RxNorm: 903624 Take 1 Tablet(s) Oral QD repeat on day 3 and 6 07/19/19 23 023 Inactive pregabalin 100 mg capsule RxNorm: 533155 Take 1 Capsule(s) Oral QAM every morning 07/19/19 23 023 Inactive gatifloxacin 0.5 % eye drops RxNorm: 324436 Instill 1 Drop(s) as directed TID Instill 1 drop in to affected eye(s) starting 1 day prior to surgery and continue until gone (do not exceed 4 weeks). 07/13/19 23 023 Inactive carvedilol 25 mg tablet RxNorm: 040990 2 Tablet(s) Oral BID 07/13/19 23 023 Inactive Humulin R Regular U-100 Insulin 100 unit/mL injection solution RxNorm: 217752 85 Unit(s) Injection TID 07/13/19 23 023 Inactive ketorolac 0.5 % eye drops RxNorm: 729737 Instill 1 Drop(s) as directed QID Instill 1 drop into affected eye(s) 4 times daily starting 1 day prior to surgery and continue until gone (do not exceed 4 weeks). 07/13/19 23 023 Inactive Diflucan 150 mg tablet RxNorm: 851049 Take 1 Tablet(s) Oral QD repeat on day 3 and 6 06/30/19 23 023 Inactive Accu-Chek Guide test strips RxNorm: Use 1 Test Strip QID Use 1 test strip to monitor blood glucose 4 times daily and as needed. Dx:E11.42. 06/23/19 23 023 Inactive ok to substitute with any covered alternative test strip dextromethorphan-gu aifenesin 10 mg-100 mg/5 mL oral liquid RxNorm: 530859 Take 10 Milliliter(s) Oral every 4 hours as needed for cough 06/19/19 023 Inactive dextromethorphan-gu aifenesin 10 mg-100 mg/5 mL oral liquid RxNorm: 756049 Take 10 Milliliter(s) Oral every 4 hours as needed for cough 06/19/19 023 Inactive Lyrica 150 mg capsule RxNorm: 549885 Take 1 Capsule(s) Oral QHS every night at bedtime 06/18/19 023 Inactive d/c 100mg dose aripiprazole 15 mg tablet RxNorm: 195378 / TAB (7.5MG) ORALLY DAILY (DX:MAJOR DEPRESSIVE DISORDER) 06/05/19 023 Inactive pregabalin 100 mg capsule RxNorm: 231501 1 Capsule(s) Oral QAM every morning 06/02/19 023 Inactive Banophen 50 mg capsule RxNorm: 5145064 Take 1 Capsule(s) Oral Q6H every 6 hours as needed 05/19/19 23 No Stop Date Active Novolog Flexpen U-100 Insulin aspart 100 unit/mL (3 mL) subcutaneous RxNorm: 7613339 Inject 10 Unit(s) Subcutaneous QHS every night at bedtime with nighttime snack 04/08/20 022 Inactive Novolog Flexpen U-100 Insulin aspart 100 unit/mL (3 mL) subcutaneous RxNorm: 9757359 Inject 42 Unit(s) Subcutaneous TID in addition to sliding scale 04/08/20 022 Inactive d/c 36u albuterol sulfate HFA 90 mcg/actuation aerosol inhaler RxNorm: 5067659 Take 2 Puff(s) Inhalation Q4H every four hours as needed as needed for SOB, cough, or wheezing 04/07/20 030 Active Banophen 50 mg capsule RxNorm: 6736404 Take 1 Capsule(s) Oral Q6H every 6 hours as needed 04/06/20 023 Inactive diphenhydramine 50 mg tablet RxNorm: 3935540 Take 1 Tablet(s) Oral Q6H every 6 hours as needed 04/06/20 22 022 Inactive diphenhydramine 50 mg tablet RxNorm: 9620888 1 Tablet(s) Oral Q6H every 6 hours as needed 04/06/20 22 022 Inactive Abilify 15 mg tablet RxNorm: 726122 1/2 Tablet(s) Oral QD 03/10/20 22 023 Inactive Shingrix (PF) 50 mcg/0.5 mL intramuscular suspension, kit RxNorm: 6881398 Administer 1/2 Milliliter(s) Intramuscular QD one time shingrix step 2 ( step 1 given 11/04/21) WITH needle - Nursing please administer upon arrival and once administered post a bridge message with date of administration, associate manager, expiration date, and lot# so we can update [facility] 02/18/20 22 022 Inactive dispense with needle Shingrix (PF) 50 mcg/0.5 mL intramuscular suspension, kit RxNorm: 9390072 Administer 1/2 Milliliter(s) Intramuscular QD one time shingrix step 2 ( step 1 given 11/04/21) WITH needle - Nursing please administer upon arrival and once administered post a bridge message with date of administration, associate manager, expiration date, and lot# so we can update [facility] 02/18/20 22 022 Inactive dispense with needle polyethylene glycol 3350 17 gram/dose oral powder RxNorm: 517250 Take 17=1 capful Gram(s) Oral QD mix with 4-8oz of liquid 01/08/20 22 023 Inactive take this in addition to BID prn order Lyrica 100 mg capsule RxNorm: 302031 Take 1 Capsule(s) Oral QAM every morning 01/08/20 22 022 Inactive d/c 50mg dose acetaminophen 500 mg tablet RxNorm: 576793 Take 1 Tablet(s) Oral TID 01/08/20 22 022 Inactive d/c PRN order Lyrica 150 mg capsule RxNorm: 211684 Take 1 Capsule(s) Oral QHS every night at bedtime 01/08/20 22 023 Inactive d/c 100mg dose Abilify 5 mg tablet RxNorm: 639017 Take 1 Tablet(s) Oral QD take 1 tab po QD #30 refill 5 dx: MDD 12/12/19 22 022 Inactive Abilify 5 mg tablet RxNorm: 640726 Take 1 Tablet(s) Oral QD take 1 tab po QD #30 refill 5 dx: MDD 12/12/19 22 022 Inactive Novolog Flexpen U-100 Insulin aspart 100 unit/mL (3 mL) subcutaneous RxNorm: 8962047 Inject 42 Unit(s) Subcutaneous TID in addition to sliding scale 12/10/19 22 Inactive d/c 36u chlorthalidone 25 mg tablet RxNorm: 015594 Take 1 Tablet(s) Oral QAM every morning 12/10/19 22 023 Inactive pregabalin 50 mg capsule RxNorm: 806430 Take 1 Capsule(s) Oral QAM every morning 11/12/19 22 022 Inactive tetanus-diphtheria toxoids-Td 2 Lf unit-2 Lf unit/0.5 mL IM suspension RxNorm: 139 Take 0.5 Miscellaneous Intramuscular 11/12/19 22 022 Inactive need tdap - nursing to administer upon arrival pregabalin 50 mg capsule RxNorm: 420468 Take 1 Capsule(s) Oral QAM every morning 10/16/19 22 022 Inactive pregabalin 50 mg capsule RxNorm: 717774 Take 1 Capsule(s) Oral QAM every morning 10/16/19 22 022 Inactive pregabalin 50 mg capsule RxNorm: 528027 1 Capsule(s) Oral QAM every morning 10/15/19 22 022 Inactive Shingrix (PF) 50 mcg/0.5 mL intramuscular suspension, kit RxNorm: 8630248 Administer 1/2 Milliliter(s) Intramuscular one time Nursing please administer upon arrival and once administered post a bridge message with date of administration, associate manager, expiration date, and lot# so we can update [facility]. 10/09/19 22 022 Inactive shingrix step 1 Shingrix (PF) 50 mcg/0.5 mL intramuscular suspension, kit RxNorm: 6661244 Administer 1/2 Milliliter(s) Intramuscular one time Nursing please administer upon arrival and once administered post a bridge message with date of administration, associate manager, expiration date, and lot# so we can update [facility]. 10/09/19 22 Inactive shingrix step 1 cholecalciferol (vitamin D3) 1,250 mcg (50,000 unit) capsule RxNorm: 773497 Take 1 Capsule(s) Oral QW once a [...] aspart 100 unit/mL (3 mL) subcutaneous RxNorm: 2342104 Inject 10 Unit(s) Subcutaneous QHS every night at bedtime with nighttime snack 10/08/19 22 Inactive Shingrix (PF) 50 mcg/0.5 mL intramuscular suspension, kit RxNorm: 3596271 ADMINISTER 2-DOSE SERIES PER CDC GUIDELINES 10/08/19 22 Active Shingrix (PF) 50 mcg/0.5 mL intramuscular suspension, kit RxNorm: 2603619 ADMINISTER 2-DOSE SERIES PER CDC GUIDELINES 10/08/19 22 Inactive Novolog Flexpen U-100 Insulin aspart 100 unit/mL (3 mL) subcutaneous RxNorm: 2125743 Inject 36 Unit(s) Subcutaneous TID in addition to sliding scale 10/08/19 22 Inactive Novofine Autocover 30 gauge x 1/3 needle RxNorm: Use 1 Miscellaneous UD as directed Use 1 needle as directed to administer insulin 5 times a day Dx:E11.42. 10/03/19 22 Inactive ok to substitute with any covered alternative pen needle benzoyl peroxide 10 % topical cleanser RxNorm: 824681 Apply 1 Application Topical QD apply to face, wash rinse and dry once daily (may change to QOD if drying) 08/19/19 22 022 Inactive (%covered by insurance) #60ml refill 11 dx: acne benzoyl peroxide 10 % topical cleanser RxNorm: 399558 Apply 1 Application Topical QD apply to face, wash rinse and dry once daily (may change to QOD if drying) 08/19/19 22 022 Inactive (%covered by insurance) #60ml refill 11 dx: acne benzoyl peroxide 10 % topical cleanser RxNorm: 754354 Apply 1 Application Topical QD apply to face, wash rinse and dry once daily (may change to QOD if drying) 08/19/19 22 022 Inactive (%covered by insurance) #60ml refill 11 dx: acne Lyrica 50 mg capsule RxNorm: 773990 Take 1 Capsule(s) Oral QAM every morning Take 1 capsule by mouth once daily 08/19/19 022 Inactive benzoyl peroxide 10 % topical cleanser RxNorm: 301874 Apply 1 Application Topical QD apply to face, wash rinse and dry once daily (may change to QOD if drying) 08/19/19 022 Inactive (%covered by insurance) #60ml refill 11 dx: acne Lyrica 100 mg capsule RxNorm: 990815 Take 1 Capsule(s) Oral QHS every night at bedtime Take 1 capsule by mouth once daily at bedtime 08/19/19 022 Inactive Lyrica 100 mg capsule RxNorm: 673110 Take 1 Capsule(s) Oral QHS every night at bedtime Take 1 capsule by mouth once daily at bedtime 08/16/19 022 Inactive Lyrica 50 mg capsule RxNorm: 916320 Take 1 Capsule(s) Oral QAM every morning Take 1 capsule by mouth once daily 08/16/19 Inactive Levemir FlexTouch U-100 Insulin 100 unit/mL (3 mL) subcutaneous pen RxNorm: 430322 Inject 86 Unit(s) Subcutaneous BID 08/05/19 22 022 Inactive d/c 83units BID Lyrica 100 mg capsule RxNorm: 178099 Take 1 Capsule(s) Oral QHS every night at bedtime Take 1 capsule by mouth once daily at bedtime 07/14/19 22 Inactive Lyrica 50 mg capsule RxNorm: 276449 Take 1 Capsule(s) Oral QAM every morning Take 1 capsule by mouth once daily 07/14/19 22 Inactive Levemir FlexTouch U-100 Insulin 100 unit/mL (3 mL) subcutaneous pen RxNorm: 298162 Inject 83 Unit(s) Subcutaneous BID 07/08/19 22 [...] test strip hydralazine 50 mg tablet RxNorm: 310661 Take 1 Tablet(s) Oral QID 05/05/20 21 022 Inactive venlafaxine ER 225 mg tablet,extended release 24 hr RxNorm: 848146 Take 1 Tablet(s) Oral QD 05/05/20 021 Inactive venlafaxine ER 225 mg tablet,extended release 24 hr RxNorm: 112074 Take 1 Tablet(s) Oral QD 05/05/20 022 Inactive isosorbide mononitrate ER 30 mg tablet,extended release 24 hr RxNorm: 465260 Take 1 Tablet(s) Oral QD 05/05/20 024 Inactive hydralazine 50 mg tablet RxNorm: 112261 Take 1 Tablet(s) Oral QID 05/05/20 Inactive aspirin 81 mg tablet,delayed release RxNorm: 210784 Take 1 Tablet(s) Oral QD 03/31/20 022 Inactive Vitamin D2 1,250 mcg (50,000 unit) capsule RxNorm: 7503815 Take 1 Capsule(s) Oral QW once a week x 12 weeks 03/31/20 022 Inactive Vitamin D2 1,250 mcg (50,000 unit) capsule RxNorm: 5102392 Take 1 Capsule(s) Oral QW once a week 03/31/20 021 Inactive Zetia 10 mg tablet RxNorm: 581853 Take 1 Tablet(s) Oral QD 03/31/20 024 Inactive Zetia 10 mg tablet RxNorm: 687900 Take 1 Tablet(s) Oral QD 03/31/20 021 Inactive hydralazine 25 mg tablet RxNorm: 359056 Take 1 Tablet(s) Oral QID 03/31/20 021 Inactive hydralazine 25 mg tablet RxNorm: 234568 Take 1 Tablet(s) Oral QID 03/31/20 021 Inactive hydralazine 10 mg tablet RxNorm: 450068 Take 1 Tablet(s) Oral QID 03/03/20 021 Inactive cephalexin 500 mg tablet RxNorm: 413547 Take 1 Tablet(s) Oral QID 02/27/20 21 021 Inactive cephalexin 500 mg tablet RxNorm: 829423 Take 1 Tablet(s) Oral QID 02/27/20 021 Inactive lisinopril 40 mg tablet RxNorm: 422572 Take 1 Tablet(s) Oral QD 02/11/20 023 Inactive Eliquis 5 mg tablet RxNorm: 0182301 Take 1 Tablet(s) Oral BID 01/05/20 21 022 Inactive Eliquis 5 mg tablet RxNorm: 6822353 Take 2 Tablet(s) Oral QD 01/01/20 21 021 Inactive Lyrica 50 mg capsule RxNorm: 620169 Take 1 Capsule(s) Oral QAM every morning 12/24/19 21 021 Inactive Lyrica 100 mg capsule RxNorm: 380048 Take 1 Capsule(s) Oral QHS every night at bedtime 12/24/19 021 Inactive clotrimazole 1 % topical cream RxNorm: 332494 Apply to right foot and toes Topical BID 12/04/19 21 023 Inactive metoprolol succinate ER 200 mg tablet,extended release 24 hr RxNorm: 614657 Take 1 Tablet(s) Oral QD 12/04/19 21 023 Inactive ciprofloxacin 500 mg tablet RxNorm: 352197 Take 1 Tablet(s) Oral QD 11/30/19 21 021 Inactive DX ofloxacin otic drops Accu-Chek Guide test strips RxNorm: USE 1 TO CHECK GLUCOSE 4 TIMES DAILY AND NEEDED 11/15/19 21 023 Inactive Blood Glucose Test strips RxNorm: Use 1 Test Strip QID at PRN 11/05/19 21 023 Inactive E11.42 lisinopril 30 mg tablet RxNorm: 151077 Take 1 Tablet(s) Oral QD 10/30/19 21 021 Inactive lisinopril 20 mg tablet RxNorm: 317215 Take 1 Tablet(s) Oral QD 10/23/19 21 021 Inactive lisinopril 20 mg tablet RxNorm: 624580 Take 1 Tablet(s) Oral QD 10/23/19 21 021 Inactive lisinopril 10 mg tablet RxNorm: 848994 Take 1 Tablet(s) Oral QD 10/02/19 21 021 Inactive icosapent ethyl 1 gram capsule RxNorm: 5029351 Take 2 Capsule(s) (2 gm) Oral BID with meals 09/12/19 024 Inactive Okay to dispense one 2gm tab if you have that available. icosapent ethyl 1 gram capsule RxNorm: 9125352 Take 2 Capsule(s) Oral BID 09/12/19 21 021 Inactive Okay to dispense one 2gm tab if you have that available. amlodipine 10 mg tablet RxNorm: 453033 Take 1 Tablet(s) Oral QD 09/04/19 21 022 Inactive aspirin 81 mg tablet,delayed release RxNorm: 486177 Take 1 Tablet(s) Oral QD 09/04/19 21 021 Inactive Levemir FlexTouch U-100 Insulin 100 unit/mL (3 mL) subcutaneous pen RxNorm: 249250 Inject 150 Unit(s) Subcutaneous BID 09/04/19 21 022 Inactive venlafaxine ER 150 mg tablet,extended release 24 hr RxNorm: 393626 Take 1 Tablet(s) Oral QD 09/04/19 21 021 Inactive clotrimazole-betame thasone 1 %-0.05 % topical cream RxNorm: 292083 Apply to rash on red area on left abdomen/chest Topical BID 08/10/19 21 021 Inactive amlodipine 5 mg tablet RxNorm: 920498 Take 1 Tablet(s) Oral QD 07/31/19 21 021 Inactive cephalexin 500 mg tablet RxNorm: 709447 Take 1 Tablet(s) Oral BID BID - Twice Daily 07/31/19 21 021 Inactive Start 08/01/20 pantoprazole 40 mg tablet,delayed release RxNorm: 354588 Take 1 Tablet(s) Oral QAM every morning 07/08/19 21 022 Inactive senna 8.6 mg tablet RxNorm: 858353 Take 1 Tablet(s) Oral QD 07/08/19 022 Inactive carbamazepine 200 mg tablet RxNorm: 216403 Take 1 Tablet(s) Oral BID 07/08/19 022 Inactive clopidogrel 75 mg tablet RxNorm: 264930 Take 1 Tablet(s) Oral QD 07/08/19 021 Inactive Blood Glucose Test strips RxNorm: Use 1 Test Strip QID at PRN 07/08/19 21 Inactive E11.42 Novolog Flexpen U-100 Insulin aspart 100 unit/mL (3 mL) subcutaneous RxNorm: 6301763 Administer per sliding scale Milliliter(s) Subcutaneous TID 151-200: 10 u; 201-250: 20 u; 251-300: 30 u; 301-350: 40 u; 351-400: 50 u. 07/08/19 022 Inactive lisinopril 5 mg tablet RxNorm: 295377 Take 1 Tablet(s) Oral QD 07/08/19 021 Inactive Novolog Flexpen U-100 Insulin aspart 100 unit/mL (3 mL) subcutaneous RxNorm: 7309007 Inject 85 Unit(s) Subcutaneous TID 07/08/19 022 Inactive pravastatin 80 mg tablet RxNorm: 123616 Take 1 Tablet(s) Oral QHS every night at bedtime 07/08/19 023 Inactive clotrimazole 1 % topical cream RxNorm: 233138 Apply to bilateral groin areas Topical BID 07/08/19 21 022 Inactive metoprolol succinate ER 200 mg tablet,extended release 24 hr RxNorm: 356897 Take 1 Tablet(s) Oral QD 07/08/19 021 Inactive Vitamin D3 25 mcg (1,000 unit) tablet RxNorm: 599643 Take 1 Tablet(s) Oral QD 07/08/19 21 021 Inactive isosorbide dinitrate 30 mg tablet RxNorm: 259943 Take 1 Tablet(s) Oral QD 07/08/19 21 021 Inactive Levemir FlexTouch U-100 Insulin 100 unit/mL (3 mL) subcutaneous pen RxNorm: 512604 Inject 140 Unit(s) Subcutaneous BID 07/08/19 21 021 Inactive torsemide 20 mg tablet RxNorm: 692016 Take 1 Tablet(s) Oral QD 07/08/19 21 023 Inactive venlafaxine 75 mg tablet RxNorm: 982092 Take 1 Tablet(s) Oral QD 07/08/19 21 021 Inactive acetaminophen 500 mg tablet RxNorm: 837042 Take 1 Tablet(s) Oral TID as needed for headache 06/18/19 21 021 Inactive acetaminophen 500 mg tablet RxNorm: Take 1 Tablet(s) Oral TID as needed for headache 06/18/19 21 021 Inactive Lyrica 100 mg capsule RxNorm: 200295 Take 1 Capsule(s) Oral QHS every night at bedtime 06/11/19 21 021 Inactive Lyrica 50 mg capsule RxNorm: 865740 Take 1 Capsule(s) Oral QAM every morning 06/10/19 21 021 Inactive hydrocortisone 2.5 % topical cream RxNorm: 729402 Apply to bilateral groin creases Topical BID 05/15/20 20 021 Inactive clotrimazole 1 % topical cream RxNorm: 574341 Apply to bilateral groin areas Topical BID 05/15/20 20 021 Inactive Lyrica 50 mg capsule RxNorm: 010496 Take 1 Capsule(s) Oral QAM every morning 05/14/20 20 020 Inactive Lyrica 100 mg capsule RxNorm: 713146 Take 1 Capsule(s) Oral QHS every night [...] Inactive Nystop 100,000 unit/gram topical powder RxNorm: 102869 Apply to abd folds, under breasts and L side of groin Topical BID x 14 days, then BID PRN 04/08/20 20 Inactive dx: yeast dermatitis Lyrica 100 mg capsule RxNorm: 986387 Take 1 Capsule(s) Oral QHS every night at bedtime 03/13/20 20 Inactive Lyrica 50 mg capsule RxNorm: 457559 Take 1 Capsule(s) Oral QAM every morning 03/13/20 20 Inactive ketoconazole 2 % shampoo RxNorm: 617456 Apply Topical two times a week with showers 03/11/20 20 Inactive cholecalciferol (vitamin D3) 50 mcg (2,000 unit) tablet RxNorm: 530405 Take 1 Tablet(s) Oral QD 03/11/20 20 021 Inactive Zetia 10 mg tablet RxNorm: 277318 Take 1 Tablet(s) Oral QD 03/07/20 20 021 Inactive Zetia 10 mg tablet RxNorm: 994997 Take 1 Tablet(s) Oral QD 03/07/20 20 Inactive Lyrica 50 mg capsule RxNorm: 192854 Take 1 Capsule(s) Oral QAM every morning 02/15/20 20 Inactive Lyrica 100 mg capsule RxNorm: 665649 Take 1 Capsule(s) Oral QHS every night at bedtime 02/15/20 20 Inactive Lyrica 100 mg capsule RxNorm: 241917 Take 1 Capsule(s) Oral QHS every night at bedtime 02/15/20 20 Inactive Lyrica 50 mg capsule RxNorm: 307801 Take 1 Capsule(s) Oral QAM every morning 02/15/20 20 10/01/2 020 Inactive metoprolol succinate ER 200 mg tablet,extended release 24 hr RxNorm: 283396 Take 1 Tablet(s) Oral QD 08/12/19 23 Active loperamide 2 mg capsule RxNorm: 185283 Take 1 Capsule(s) Oral QID as needed 06/12/19 22 Active hydralazine 50 mg tablet RxNorm: 867606 Take 1 Tablet(s) Oral QID 08/12/19 23 Active venlafaxine ER 75 mg capsule,extended release 24 hr RxNorm: 373460 Take 3 Capsule(s) Oral QD 06/12/19 22 023 Inactive polyethylene glycol 3350 17 gram/dose oral powder RxNorm: 495942 Take 17=1 capful Gram(s) Oral BID as needed mix with 4-8oz of liquid 06/12/19 22 024 Inactive icosapent ethyl 1 gram capsule RxNorm: 6323339 Take 2 Capsule(s) (2 gm) Oral BID with meals 10/07/19 23 023 Inactive Okay to dispense one 2gm tab if you have that available. Levemir FlexTouch U-100 Insulin 100 unit/mL (3 mL) subcutaneous pen RxNorm: 117172 Inject 80 Unit(s) Subcutaneous BID 07/14/19 23 023 Inactive Novolog Flexpen U-100 Insulin aspart 100 unit/mL (3 mL) subcutaneous RxNorm: 9104033 Insert 30 Unit(s) Subcutaneous TID with meals [...] Encounter Performer Location Location Address Codes Date ([address]) Home or Residence Visit Est Pt - Moderate Level, 40 mins Diagnosis: Coronary artery disease involving samish coronary artery of samish heart, angina presence unspecified[ICD1 0: I25.10] Diagnosis: Major depression, recurrent[ICD10: F33.9] Andressa ManleySarah [place] [address] [place] [id number] CPT-4: 98010 07/15/2023 Plan of Care Planned Activity Notes Codes Status Date Patient Education: Patient Medication Summary Completed 07/15/2023 Patient Education: Influenza Complet ed 07/15/2023 Appointment: Sandra Clark WPtel: [address] [facility] [address] [id number] Telehealth Psych Follow Up 12/09 Appointment: Tapan Shirley WPtel: [address] [facility] [address] [id number] [facility] 10/26/2022 Referral: [facility] WPtel: [phone] , [address] [id number] Referral Records Received 09/21/2022 Appointment: Tapan Shirley WPtel: [address] [facility] 300 [id number] [place] F/U 08/11/2022 Appointment: Tapan Shirley WPtel: [address] [facility] 300 [id number] [place] F/U 07/14/2022 Appointment: Tapan Shirley WPtel: [address] [facility] 300 [id number] [place] F/U 02/10/2022 Referral: [facility] WPtel: [phone] [id number] [place] Referral Completed 05/28/2021 Referral: General Cardiology Referral [facility] ed 01/03/2021 Referral: General Psychologist Referral Close d Referral: General Psychiatrist Referral Patient/Family Scheduling Appointment Instructions Comment Date Peter is a?? Male being seen living at [facility]. Initial BPS visit 01/2020. PMHx including DMII, CAD w/ 5 stents, Depression, Seizure Disorder and CKD stage 3. He moved into [facility] in 12/2019 but after a hospitalization 05/2021 he moved to the [facility] to have closer nursing attention.??Sister Jyotsna involved in his care cell# [phone]??Guardian: Giulia (tapan met in person 09/01/21), now has Lexii (same group as giulia)Lab Schedule: Mar-/September*September (CBC with diff, CMP, A1c) (Novemebr: CBC, CMP, A1c, Lipids, VitD) 10/08/2023 Major depression, recurrent consider BHI Coronary artery disease involving samish coronary artery of samish heart, angina presence unspecified some edema, awaiting TEDs. 07/15/2023
--- OUTSIDE RECORDS SUMMARY | 2023-11-03 10:26 | XMS_ITS | CCD ---
Author Name Cecilio Durham feliberto Address [address] [place] [address] Phone Organization [facility] Phone Care Team Providers Care Oracle Applications Analyst Name Role Phone Harrison Durham Primary Care Provider Leona vailable Harrison Durham Chronic Care Management U navailable Summary Purpose DataExchange Insurance Providers Payer name Policy type / Coverage type Covered green party ID Effective Begin Date Effective End Date Medicare [place] Medicare Part B [id number] Unknown Unknown Medicaid [place] Medicare Part B [id number] Unknown Unknown Family history Sister Brittany Suggs [...] Unknown Detention 09/03/[address]: 9079950 Non-Smoker / No History of Smoking 09/02/[address]: 797518468 No Alcohol Consum ption 09/02/2020 Allergies, Adverse Reactions, Alerts Substance Reaction Codes Entered Date Inactivated Date Status * NO KNOWN FOOD ALLERGIES Unknown 07/13/2023 No Inactive Date Active LISINOPRIL RxNorm: 37100 02/12/2020 No Inactive Da te Active Metformin HCl Unknown 02/12/2020 No Inactive Cristiano e Active * NO KNOWN ENVIRONMENTAL ALLERGIES Unknown 07/13/2023 No Inactive Date Active Problems Condition Codes Effective Dates Condition St atus Lower extremity edema ICD-10: R60.0 ICD-9: 782.3 08/10/2023 Active Major depression, recurrent ICD-10: F33. 9 ICD-9: 296.30 08/10/2023 Active Onychogryposis ICD-10: L60.2 ICD-9: 703.8 08/10/2023 Active PVD (peripheral vascular disease) ICD-10 : I73.9 ICD-9: 443.9 08/10/2023 Active Coronary artery disease invo lving [place] coronary artery of [place] heart, angina presence unspecified ICD-10: I25.10 ICD-9: 414.01 07/15/2023 Active 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 ICD-10: K59.01 ICD-9: 564.01 06/15/2023 Active Diabetic neuropathy associat ed with type 2 diabetes mellitus ICD-10: E11.40 ICD-9: 250.60 06/15/2023 Active Hx of deep venous thrombosis ICD-10: Z86 .718 ICD-9: V12.51 06/15/2023 Active Type 2 diabetes mellitus wit [...] ICD-10: F81.9 ICD-9: 315.2 03/03/2023 Active 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 ICD-10: Z79.899 ICD-9: V58.69 03/03/2023 [...] limbs ICD-10: G82.20 ICD-9: 344.1 11/10/2022 Active Pain of right heel ICD-10: M79.671 [...] state ICD-10: D68.59 ICD-9: 289.81 02/10/2022 Active Depression ICD-10: F32.9 ICD-9: 311 [...] Fill Instructions rosuvastatin 40 mg tablet RxNorm: 890542 Take 1 Tablet(s) Oral QPM every evening 07/13/19 24 No Stop Date Active ezetimibe 10 mg tablet RxNorm: 575365 Take 1 Tablet(s) Oral QD 07/13/19 24 No Stop Date Active bisacodyl 10 mg rectal suppository RxNorm: 015495 Insert 1 Suppository Rectal QD as needed 07/13/19 24 No Stop Date Active polyethylene glycol 3350 17 gram/dose oral powder RxNorm: 868975 Take 17 Gram(s) Oral BID as needed mix in 4-8ox water 07/13/19 24 No Stop Date Active ketoconazole 2 % shampoo RxNorm: 015483 Apply 1 Application Topical UD as directed 07/13/19 24 No Stop Date Active aripiprazole 15 mg tablet RxNorm: 917569 Take 1/2 Tablet(s) Oral QD 07/13/19 24 No Stop Date Active Ozempic 1 mg/dose (4 mg/3 mL) subcutaneous pen injector RxNorm: 7308420 Inject 1 Milligram(s) Subcutaneous QW once a week 07/13/19 24 No Stop Date Active Guaifenesin AC 10 mg-100 mg/5 mL oral liquid RxNorm: 957578 Take 10 Milliliter(s) Oral Q4H every four hours as needed 07/13/19 24 No Stop Date Active isosorbide mononitrate ER 60 mg tablet,extended release 24 hr RxNorm: 396428 Take 1 Tablet(s) Oral QD 07/13/19 24 No Stop Date Active ammonium lactate 12 % topical cream RxNorm: 329471 Apply 1 Application Topical BID 07/13/19 24 No Stop Date Active hydrocortisone 2.5 % topical cream RxNorm: 024692 Apply 1 Application Topical BID as needed 07/13/19 24 No Stop Date Active rosuvastatin 20 mg sprinkle capsule RxNorm: 3633650 Take 1 Capsule(s) Oral QD 07/13/19 24 No Stop Date Active Vascepa 1 gram capsule RxNorm: 4267636 Take 2 Capsule(s) Oral BID 07/13/19 24 No Stop Date Active venlafaxine ER 75 mg capsule,extended release 24 hr RxNorm: 409714 Take 3 Capsule(s) Oral QD 07/13/19 24 No Stop Date Active Basaglar KwikPen U-100 Insulin 100 unit/mL (3 mL) subcutaneous RxNorm: 7659192 Inject 30U SubQ twice daily 07/07/19 24 025 Active Please dispense one month supply. Basaglar KwikPen U-100 Insulin 100 unit/mL (3 mL) subcutaneous RxNorm: 2851929 Inject 30U SubQ twice daily 07/07/19 24 024 Inactive Please dispense one month supply. pregabalin 150 mg capsule RxNorm: 644656 Take 1 Capsule(s) Oral QHS every night at bedtime 07/05/19 24 024 Active pregabalin 150 mg capsule RxNorm: 778332 Take 1 Capsule(s) Oral QHS every night at bedtime 07/05/19 24 024 Inactive polyethylene glycol 3350 17 gram/dose oral powder RxNorm: 329452 Take 1 Packet Oral QD as needed (1 packet = 17g) mix with 4-8oz of liquid 06/15/19 24 024 Inactive bisacodyl 10 mg rectal suppository RxNorm: 912384 Insert one suppository per rectum once daily as needed for constipation 06/15/19 24 024 Inactive bisacodyl 10 mg rectal suppository RxNorm: 398389 Insert one suppository per rectum once daily as needed for constipation 06/15/19 24 024 Inactive pregabalin 100 mg capsule RxNorm: 993147 Take 1 Capsule(s) Oral QAM every morning 04/27/20 23 024 Inactive Levemir FlexPen 100 unit/mL (3 mL) solution subcutaneous insulin pen RxNorm: 262372 Inject 30 Unit(s) Subcutaneous BID 04/27/20 23 024 Inactive rosuvastatin 40 mg tablet RxNorm: 852283 Take 1 Tablet(s) Oral QPM every evening 04/16/20 024 Inactive D/C rosuvastatin 20mg venlafaxine ER 75 mg capsule,extended release 24 hr RxNorm: 878042 Take 3 Capsule(s) Oral QD 04/14/20 023 Inactive pregabalin 100 mg capsule RxNorm: 558473 Take 1 Capsule(s) Oral QAM every morning [...] meter clotrimazole 1 % topical cream RxNorm: 007787 Take apply topically to abdominal folds twice daily for 14 days 03/12/20 024 Inactive Ozempic 1 mg/dose (4 mg/3 mL) subcutaneous pen injector RxNorm: 6455701 Inject 1 Milligram(s) Subcutaneous QW once a week 03/11/20 023 Inactive rosuvastatin 20 mg tablet RxNorm: 359917 Take 1 Tablet(s) Oral QD 02/26/20 23 023 Inactive d/c pravastatin 80mg Ozempic 1 mg/dose (4 mg/3 mL) subcutaneous pen injector RxNorm: 9439823 Inject 1 Milligram(s) Subcutaneous QW once a week 02/20/20 23 023 Inactive pregabalin 150 mg capsule RxNorm: 240764 Take 1 Capsule(s) Oral HS at bed time 02/19/20 23 023 Inactive pregabalin 100 mg capsule RxNorm: 384055 Take 1 Capsule(s) Oral QAM every morning 02/18/20 23 023 Inactive venlafaxine ER 75 mg capsule,extended release 24 hr RxNorm: 877143 Take 3 Capsule(s) Oral QD 09/20 023 Inactive FreeStyle Chema 2 Sensor kit RxNorm: use as directed 02/04/20 23 023 Inactive FreeStyle Chema 2 Sensor kit RxNorm: use as directed 02/04/20 024 Inactive fluconazole 150 mg tablet RxNorm: 020719 Take 1 Tablet(s) Oral on day 3 and on day 6 02/03/20 024 Active chlorthalidone 25 mg tablet RxNorm: 599854 Take 1 Tablet(s) Oral QAM every morning 02/03/20 No Stop Date Active venlafaxine ER 150 mg capsule,extended release 24 hr RxNorm: 341743 Take 1 Capsule(s) Oral QD 02/03/20 023 Inactive acetaminophen 500 mg tablet RxNorm: 555066 1 TABLET ORALLY 3 TIMES DAILY (MAX APAP:4GM/24HR) 12/15/19 23 023 Inactive potassium chloride ER 20 mEq tablet,extended release RxNorm: 781331 Take 1 Tablet(s) Oral BID 12/09/19 024 Inactive d/c 20mEq once daily (sent from hospital) clotrimazole 1 % topical cream RxNorm: 426917 apply 1g topically to top of feet and in between toes BID 12/09/19 23 023 Inactive nystatin 100,000 unit/gram topical powder RxNorm: 017546 APPLY TO AFFECTED AREAS TOPICALLY 2 TIMES DAILY 11/21/19 23 024 Inactive Nystop 100,000 unit/gram topical powder RxNorm: 495194 Apply to abd folds, under breasts and L side of groin Topical BID x 14 days, then BID PRN 11/20/19 23 023 Inactive dx: yeast dermatitis Bengay Ultra Strength 4 %-30 %-10 % topical cream RxNorm: 169285 Apply 1 Gram(s) Topical QID PRN to feet and legs for neuropathic pain 11/11/19 23 024 Active hydrocortisone 2.5 % topical cream RxNorm: 244510 Apply 1/2 Gram(s) Topical BID as needed 11/10/19 23 024 Inactive clotrimazole 1 % topical cream RxNorm: 214377 Apply 1/2 Gram(s) Topical BID Apply to affected areas of groin, periarea, and abdominal topically 2 times daily 11/10/19 23 023 Inactive Humulin R U-500 (Concentrated) Insulin 500 unit/mL subcutaneous soln RxNorm: 597317 Inject 100 Unit(s) Subcutaneous TID 10/07/19 024 Inactive Levemir FlexPen 100 unit/mL (3 mL) solution subcutaneous insulin pen RxNorm: 076661 Inject 30 Unit(s) Subcutaneous BID 10/07/19 023 Inactive Ozempic 0.25 mg or 0.5 mg (2 mg/3 mL) subcutaneous pen injector RxNorm: 3828397 Inject 1/2 Milligram(s) Subcutaneous QW once a week 10/07/19 024 Inactive aripiprazole 15 mg tablet RxNorm: 682660 1/2 TAB (7.5MG) ORALLY DAILY (DX:MAJOR DEPRESSIVE DISORDER) 09/23/19 023 Inactive Lancets,Thin 28 gauge RxNorm: Use 1 as directed QID 09/15/19 23 024 Inactive Accu-Chek Guide test strips RxNorm: Use 1 Test Strip QID 09/15/19 23 023 Inactive ok to substitute with any covered alternative test strip torsemide 20 mg tablet RxNorm: 207502 Take 1 Tablet(s) Oral BID 09/09/19 024 Inactive d/c once daily dosing carvedilol 25 mg tablet RxNorm: 957059 Take 1 Tablet(s) Oral QD 08/25/19 23 024 Inactive pregabalin 150 mg capsule RxNorm: 292607 1 Capsule(s) Oral HS at bed time 08/18/19 023 Inactive pregabalin 100 mg capsule RxNorm: 473171 1 Capsule(s) Oral QAM every morning 08/18/19 023 Inactive carvedilol 25 mg tablet RxNorm: 604115 1 Tablet(s) Oral QD 07/28/19 23 023 Inactive lisinopril 20 mg tablet RxNorm: 124879 Give 1 Tablet(s) Oral QD 07/28/19 23 023 Inactive Lyrica 150 mg capsule RxNorm: 798573 Take 1 Capsule(s) Oral QHS every night at bedtime 07/19/19 23 023 Inactive d/c 100mg dose Diflucan 150 mg tablet RxNorm: 234544 Take 1 Tablet(s) Oral QD repeat on day 3 and 6 07/19/19 23 023 Inactive pregabalin 100 mg capsule RxNorm: 595351 Take 1 Capsule(s) Oral QAM every morning 07/19/19 23 023 Inactive gatifloxacin 0.5 % eye drops RxNorm: 701369 Instill 1 Drop(s) as directed TID Instill 1 drop in to affected eye(s) starting 1 day prior to surgery and continue until gone (do not exceed 4 weeks). 07/13/19 23 023 Inactive carvedilol 25 mg tablet RxNorm: 291872 2 Tablet(s) Oral BID 07/13/19 23 023 Inactive Humulin R Regular U-100 Insulin 100 unit/mL injection solution RxNorm: 802476 85 Unit(s) Injection TID 07/13/19 23 023 Inactive ketorolac 0.5 % eye drops RxNorm: 044921 Instill 1 Drop(s) as directed QID Instill 1 drop into affected eye(s) 4 times daily starting 1 day prior to surgery and continue until gone (do not exceed 4 weeks). 07/13/19 23 023 Inactive Diflucan 150 mg tablet RxNorm: 722090 Take 1 Tablet(s) Oral QD repeat on day 3 and 6 06/30/19 23 023 Inactive Accu-Chek Guide test strips RxNorm: Use 1 Test Strip QID Use 1 test strip to monitor blood glucose 4 times daily and as needed. Dx:E11.42. 06/23/19 23 023 Inactive ok to substitute with any covered alternative test strip dextromethorphan-gu aifenesin 10 mg-100 mg/5 mL oral liquid RxNorm: 682098 Take 10 Milliliter(s) Oral every 4 hours as needed for cough 06/19/19 023 Inactive dextromethorphan-gu aifenesin 10 mg-100 mg/5 mL oral liquid RxNorm: 899812 Take 10 Milliliter(s) Oral every 4 hours as needed for cough 06/19/19 023 Inactive Lyrica 150 mg capsule RxNorm: 665007 Take 1 Capsule(s) Oral QHS every night at bedtime 06/18/19 023 Inactive d/c 100mg dose aripiprazole 15 mg tablet RxNorm: 479360 /2 TAB (7.5MG) ORALLY DAILY (DX:MAJOR DEPRESSIVE DISORDER) 06/05/19 023 Inactive pregabalin 100 mg capsule RxNorm: 454913 1 Capsule(s) Oral QAM every morning 06/02/19 023 Inactive Banophen 50 mg capsule RxNorm: 2951198 Take 1 Capsule(s) Oral Q6H every 6 hours as needed 05/19/19 23 No Stop Date Active Novolog Flexpen U-100 Insulin aspart 100 unit/mL (3 mL) subcutaneous RxNorm: 5750350 Inject 10 Unit(s) Subcutaneous QHS every night at bedtime with nighttime snack 04/08/20 022 Inactive Novolog Flexpen U-100 Insulin aspart 100 unit/mL (3 mL) subcutaneous RxNorm: 2914066 Inject 42 Unit(s) Subcutaneous TID in addition to sliding scale 04/08/20 022 Inactive d/c 36u albuterol sulfate HFA 90 mcg/actuation aerosol inhaler RxNorm: 7729484 Take 2 Puff(s) Inhalation Q4H every four hours as needed as needed for SOB, cough, or wheezing 04/07/20 030 Active Banophen 50 mg capsule RxNorm: 5144214 Take 1 Capsule(s) Oral Q6H every 6 hours as needed 04/06/20 023 Inactive diphenhydramine 50 mg tablet RxNorm: 3236138 Take 1 Tablet(s) Oral Q6H every 6 hours as needed 04/06/20 22 022 Inactive diphenhydramine 50 mg tablet RxNorm: 5596951 1 Tablet(s) Oral Q6H every 6 hours as needed 04/06/20 22 022 Inactive Abilify 15 mg tablet RxNorm: 761078 1/2 Tablet(s) Oral QD 03/10/20 22 023 Inactive Shingrix (PF) 50 mcg/0.5 mL intramuscular suspension, kit RxNorm: 6787088 Administer 1/2 Milliliter(s) Intramuscular QD one time shingrix step 2 ( step 1 given 11/04/21) WITH needle - Nursing please administer upon arrival and once administered post a bridge message with date of administration, survey technician, expiration date, and lot# so we can update [facility] 02/18/20 22 022 Inactive dispense with needle Shingrix (PF) 50 mcg/0.5 mL intramuscular suspension, kit RxNorm: 8912338 Administer 1/2 Milliliter(s) Intramuscular QD one time shingrix step 2 ( step 1 given 11/04/21) WITH needle - Nursing please administer upon arrival and once administered post a bridge message with date of administration, survey technician, expiration date, and lot# so we can update [facility] 02/18/20 22 022 Inactive dispense with needle polyethylene glycol 3350 17 gram/dose oral powder RxNorm: 943376 Take 17=1 capful Gram(s) Oral QD mix with 4-8oz of liquid 01/08/20 22 023 Inactive take this in addition to BID prn order Lyrica 100 mg capsule RxNorm: 908079 Take 1 Capsule(s) Oral QAM every morning 01/08/20 22 022 Inactive d/c 50mg dose acetaminophen 500 mg tablet RxNorm: 185246 Take 1 Tablet(s) Oral TID 01/08/20 22 022 Inactive d/c PRN order Lyrica 150 mg capsule RxNorm: 656387 Take 1 Capsule(s) Oral QHS every night at bedtime 01/08/20 22 023 Inactive d/c 100mg dose Abilify 5 mg tablet RxNorm: 555297 Take 1 Tablet(s) Oral QD take 1 tab po QD #30 refill 5 dx: MDD 12/12/19 22 022 Inactive Abilify 5 mg tablet RxNorm: 719031 Take 1 Tablet(s) Oral QD take 1 tab po QD #30 refill 5 dx: MDD 12/12/19 22 022 Inactive Novolog Flexpen U-100 Insulin aspart 100 unit/mL (3 mL) subcutaneous RxNorm: 0560764 Inject 42 Unit(s) Subcutaneous TID in addition to sliding scale 12/10/19 22 022 Inactive d/c 36u chlorthalidone 25 mg tablet RxNorm: 925936 Take 1 Tablet(s) Oral QAM every morning 12/10/19 22 023 Inactive pregabalin 50 mg capsule RxNorm: 392573 Take 1 Capsule(s) Oral QAM every morning 11/12/19 22 022 Inactive tetanus-diphtheria toxoids-Td 2 Lf unit-2 Lf unit/0.5 mL IM suspension RxNorm: 139 Take 0.5 Miscellaneous Intramuscular 11/12/19 22 022 Inactive need tdap - nursing to administer upon arrival pregabalin 50 mg capsule RxNorm: 730998 Take 1 Capsule(s) Oral QAM every morning 10/16/19 22 022 Inactive pregabalin 50 mg capsule RxNorm: 869743 Take 1 Capsule(s) Oral QAM every morning 10/16/19 22 022 Inactive pregabalin 50 mg capsule RxNorm: 376876 1 Capsule(s) Oral QAM every morning 10/15/19 22 022 Inactive Shingrix (PF) 50 mcg/0.5 mL intramuscular suspension, kit RxNorm: 4185795 Administer 1/2 Milliliter(s) Intramuscular one time Nursing please administer upon arrival and once administered post a bridge message with date of administration, survey 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 10/09/19 22 022 Inactive shingrix step 1 Shingrix (PF) 50 mcg/0.5 mL intramuscular suspension, kit RxNorm: 2606233 Administer 1/2 Milliliter(s) Intramuscular one time Nursing please administer upon arrival and once administered post a bridge message with date of administration, survey 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 10/09/19 22 Inactive shingrix step 1 cholecalciferol (vitamin D3) 1,250 mcg (50,000 unit) capsule RxNorm: 143188 Take 1 Capsule(s) Oral QW once a [...] aspart 100 unit/mL (3 mL) subcutaneous RxNorm: 1101546 Inject 10 Unit(s) Subcutaneous QHS every night at bedtime with nighttime snack 10/08/19 22 Inactive Shingrix (PF) 50 mcg/0.5 mL intramuscular suspension, kit RxNorm: 1852409 ADMINISTER 2-DOSE SERIES PER CDC GUIDELINES 10/08/19 22 Active Shingrix (PF) 50 mcg/0.5 mL intramuscular suspension, kit RxNorm: 1450033 ADMINISTER 2-DOSE SERIES PER CDC GUIDELINES 10/08/19 22 Inactive Novolog Flexpen U-100 Insulin aspart 100 unit/mL (3 mL) subcutaneous RxNorm: 3724976 Inject 36 Unit(s) Subcutaneous TID in addition to sliding scale 10/08/19 22 Inactive Novofine Autocover 30 gauge x 1/3 needle RxNorm: Use 1 Miscellaneous UD as directed Use 1 needle as directed to administer insulin 5 times a day Dx:E11.42. 10/03/19 22 Inactive ok to substitute with any covered alternative pen needle benzoyl peroxide 10 % topical cleanser RxNorm: 732450 Apply 1 Application Topical QD apply to face, wash rinse and dry once daily (may change to QOD if drying) 08/19/19 22 022 Inactive (%covered by insurance) #60ml refill 11 dx: acne benzoyl peroxide 10 % topical cleanser RxNorm: 345259 Apply 1 Application Topical QD apply to face, wash rinse and dry once daily (may change to QOD if drying) 08/19/19 22 022 Inactive (%covered by insurance) #60ml refill 11 dx: acne benzoyl peroxide 10 % topical cleanser RxNorm: 448701 Apply 1 Application Topical QD apply to face, wash rinse and dry once daily (may change to QOD if drying) 08/19/19 22 022 Inactive (%covered by insurance) #60ml refill 11 dx: acne Lyrica 50 mg capsule RxNorm: 622468 Take 1 Capsule(s) Oral QAM every morning Take 1 capsule by mouth once daily 08/19/19 022 Inactive benzoyl peroxide 10 % topical cleanser RxNorm: 469408 Apply 1 Application Topical QD apply to face, wash rinse and dry once daily (may change to QOD if drying) 08/19/19 22 022 Inactive (%covered by insurance) #60ml refill 11 dx: acne Lyrica 100 mg capsule RxNorm: 724695 Take 1 Capsule(s) Oral QHS every night at bedtime Take 1 capsule by mouth once daily at bedtime 08/19/19 22 022 Inactive Lyrica 100 mg capsule RxNorm: 779544 Take 1 Capsule(s) Oral QHS every night at bedtime Take 1 capsule by mouth once daily at bedtime 08/16/19 022 Inactive Lyrica 50 mg capsule RxNorm: 808369 Take 1 Capsule(s) Oral QAM every morning Take 1 capsule by mouth once daily 08/16/19 Inactive Levemir FlexTouch U-100 Insulin 100 unit/mL (3 mL) subcutaneous pen RxNorm: 585714 Inject 86 Unit(s) Subcutaneous BID 08/05/19 22 022 Inactive d/c 83units BID Lyrica 100 mg capsule RxNorm: 570837 Take 1 Capsule(s) Oral QHS every night at bedtime Take 1 capsule by mouth once daily at bedtime 07/14/19 22 Inactive Lyrica 50 mg capsule RxNorm: 176425 Take 1 Capsule(s) Oral QAM every morning Take 1 capsule by mouth once daily 07/14/19 22 Inactive Levemir FlexTouch U-100 Insulin 100 unit/mL (3 mL) subcutaneous pen RxNorm: 273549 Inject 83 Unit(s) Subcutaneous BID 07/08/19 22 [...] test strip hydralazine 50 mg tablet RxNorm: 070604 Take 1 Tablet(s) Oral QID 05/05/20 022 Inactive venlafaxine ER 225 mg tablet,extended release 24 hr RxNorm: 616488 Take 1 Tablet(s) Oral QD 05/05/20 21 021 Inactive venlafaxine ER 225 mg tablet,extended release 24 hr RxNorm: 750650 Take 1 Tablet(s) Oral QD 05/05/20 022 Inactive isosorbide mononitrate ER 30 mg tablet,extended release 24 hr RxNorm: 436920 Take 1 Tablet(s) Oral QD 05/05/20 024 Inactive hydralazine 50 mg tablet RxNorm: 381471 Take 1 Tablet(s) Oral QID 05/05/20 Inactive aspirin 81 mg tablet,delayed release RxNorm: 507894 Take 1 Tablet(s) Oral QD 03/31/20 022 Inactive Vitamin D2 1,250 mcg (50,000 unit) capsule RxNorm: 2086196 Take 1 Capsule(s) Oral QW once a week x 12 weeks 03/31/20 022 Inactive Vitamin D2 1,250 mcg (50,000 unit) capsule RxNorm: 0735211 Take 1 Capsule(s) Oral QW once a week 03/31/20 021 Inactive Zetia 10 mg tablet RxNorm: 666680 Take 1 Tablet(s) Oral QD 03/31/20 024 Inactive Zetia 10 mg tablet RxNorm: 402592 Take 1 Tablet(s) Oral QD 03/31/20 021 Inactive hydralazine 25 mg tablet RxNorm: 160149 Take 1 Tablet(s) Oral QID 03/31/20 021 Inactive hydralazine 25 mg tablet RxNorm: 854586 Take 1 Tablet(s) Oral QID 03/31/20 021 Inactive hydralazine 10 mg tablet RxNorm: 626293 Take 1 Tablet(s) Oral QID 03/03/20 021 Inactive cephalexin 500 mg tablet RxNorm: 064826 Take 1 Tablet(s) Oral QID 02/27/20 021 Inactive cephalexin 500 mg tablet RxNorm: 208615 Take 1 Tablet(s) Oral QID 02/27/20 021 Inactive lisinopril 40 mg tablet RxNorm: 788758 Take 1 Tablet(s) Oral QD 02/11/20 023 Inactive Eliquis 5 mg tablet RxNorm: 9528271 Take 1 Tablet(s) Oral BID 01/05/20 21 022 Inactive Eliquis 5 mg tablet RxNorm: 3382985 Take 2 Tablet(s) Oral QD 01/01/20 21 021 Inactive Lyrica 50 mg capsule RxNorm: 894181 Take 1 Capsule(s) Oral QAM every morning 12/24/19 21 021 Inactive Lyrica 100 mg capsule RxNorm: 493656 Take 1 Capsule(s) Oral QHS every night at bedtime 12/24/19 021 Inactive clotrimazole 1 % topical cream RxNorm: 675139 Apply to right foot and toes Topical BID 12/04/19 21 023 Inactive metoprolol succinate ER 200 mg tablet,extended release 24 hr RxNorm: 637328 Take 1 Tablet(s) Oral QD 12/04/19 21 023 Inactive ciprofloxacin 500 mg tablet RxNorm: 600750 Take 1 Tablet(s) Oral QD 11/30/19 021 Inactive DX ofloxacin otic drops Accu-Chek Guide test strips RxNorm: USE 1 TO CHECK GLUCOSE 4 TIMES DAILY AND NEEDED 11/15/19 21 023 Inactive Blood Glucose Test strips RxNorm: Use 1 Test Strip QID at PRN 11/05/19 21 023 Inactive E11.42 lisinopril 30 mg tablet RxNorm: 680067 Take 1 Tablet(s) Oral QD 10/30/19 21 021 Inactive lisinopril 20 mg tablet RxNorm: 337138 Take 1 Tablet(s) Oral QD 10/23/19 21 021 Inactive lisinopril 20 mg tablet RxNorm: 771060 Take 1 Tablet(s) Oral QD 10/23/19 21 021 Inactive lisinopril 10 mg tablet RxNorm: 034981 Take 1 Tablet(s) Oral QD 10/02/19 21 021 Inactive icosapent ethyl 1 gram capsule RxNorm: 6951396 Take 2 Capsule(s) (2 gm) Oral BID with meals 09/12/19 024 Inactive Okay to dispense one 2gm tab if you have that available. icosapent ethyl 1 gram capsule RxNorm: 5564089 Take 2 Capsule(s) Oral BID 09/12/19 21 021 Inactive Okay to dispense one 2gm tab if you have that available. amlodipine 10 mg tablet RxNorm: 486380 Take 1 Tablet(s) Oral QD 09/04/19 21 022 Inactive aspirin 81 mg tablet,delayed release RxNorm: 839947 Take 1 Tablet(s) Oral QD 09/04/19 21 021 Inactive Levemir FlexTouch U-100 Insulin 100 unit/mL (3 mL) subcutaneous pen RxNorm: 307058 Inject 150 Unit(s) Subcutaneous BID 09/04/19 21 022 Inactive venlafaxine ER 150 mg tablet,extended release 24 hr RxNorm: 706554 Take 1 Tablet(s) Oral QD 09/04/19 21 021 Inactive clotrimazole-betame thasone 1 %-0.05 % topical cream RxNorm: 397689 Apply to rash on red area on left abdomen/chest Topical BID 08/10/19 21 021 Inactive amlodipine 5 mg tablet RxNorm: 178090 Take 1 Tablet(s) Oral QD 07/31/19 21 021 Inactive cephalexin 500 mg tablet RxNorm: 816898 Take 1 Tablet(s) Oral BID BID - Twice Daily 07/31/19 21 021 Inactive Start 08/01/20 pantoprazole 40 mg tablet,delayed release RxNorm: 173817 Take 1 Tablet(s) Oral QAM every morning 07/08/19 21 022 Inactive senna 8.6 mg tablet RxNorm: 500766 Take 1 Tablet(s) Oral QD 07/08/19 022 Inactive carbamazepine 200 mg tablet RxNorm: 458842 Take 1 Tablet(s) Oral BID 07/08/19 022 Inactive clopidogrel 75 mg tablet RxNorm: 804671 Take 1 Tablet(s) Oral QD 07/08/19 021 Inactive Blood Glucose Test strips RxNorm: Use 1 Test Strip QID at PRN 07/08/19 21 Inactive E11.42 Novolog Flexpen U-100 Insulin aspart 100 unit/mL (3 mL) subcutaneous RxNorm: 5184395 Administer per sliding scale Milliliter(s) Subcutaneous TID 151-200: 10 u; 201-250: 20 u; 251-300: 30 u; 301-350: 40 u; 351-400: 50 u. 07/08/19 022 Inactive lisinopril 5 mg tablet RxNorm: 854422 Take 1 Tablet(s) Oral QD 07/08/19 021 Inactive Novolog Flexpen U-100 Insulin aspart 100 unit/mL (3 mL) subcutaneous RxNorm: 3294347 Inject 85 Unit(s) Subcutaneous TID 07/08/19 022 Inactive pravastatin 80 mg tablet RxNorm: 373963 Take 1 Tablet(s) Oral QHS every night at bedtime 07/08/19 023 Inactive clotrimazole 1 % topical cream RxNorm: 436070 Apply to bilateral groin areas Topical BID 07/08/19 21 022 Inactive metoprolol succinate ER 200 mg tablet,extended release 24 hr RxNorm: 393471 Take 1 Tablet(s) Oral QD 07/08/19 21 021 Inactive Vitamin D3 25 mcg (1,000 unit) tablet RxNorm: 289371 Take 1 Tablet(s) Oral QD 07/08/19 21 021 Inactive isosorbide dinitrate 30 mg tablet RxNorm: 218462 Take 1 Tablet(s) Oral QD 07/08/19 21 021 Inactive Levemir FlexTouch U-100 Insulin 100 unit/mL (3 mL) subcutaneous pen RxNorm: 289522 Inject 140 Unit(s) Subcutaneous BID 07/08/19 21 021 Inactive torsemide 20 mg tablet RxNorm: 066420 Take 1 Tablet(s) Oral QD 07/08/19 21 023 Inactive venlafaxine 75 mg tablet RxNorm: 461207 Take 1 Tablet(s) Oral QD 07/08/19 21 021 Inactive acetaminophen 500 mg tablet RxNorm: 875456 Take 1 Tablet(s) Oral TID as needed for headache 06/18/19 21 021 Inactive acetaminophen 500 mg tablet RxNorm: 446633 Take 1 Tablet(s) Oral TID as needed for headache 06/18/19 21 021 Inactive Lyrica 100 mg capsule RxNorm: 786869 Take 1 Capsule(s) Oral QHS every night at bedtime 06/11/19 21 021 Inactive Lyrica 50 mg capsule RxNorm: 224978 Take 1 Capsule(s) Oral QAM every morning 06/10/19 21 021 Inactive hydrocortisone 2.5 % topical cream RxNorm: 795490 Apply to bilateral groin creases Topical BID 05/15/20 20 021 Inactive clotrimazole 1 % topical cream RxNorm: 030006 Apply to bilateral groin areas Topical BID 05/15/20 20 021 Inactive Lyrica 50 mg capsule RxNorm: 705434 Take 1 Capsule(s) Oral QAM every morning 05/14/20 20 020 Inactive Lyrica 100 mg capsule RxNorm: 637386 Take 1 Capsule(s) Oral QHS every night [...] Inactive Nystop 100,000 unit/gram topical powder RxNorm: 069896 Apply to abd folds, under breasts and L side of groin Topical BID x 14 days, then BID PRN 04/08/20 20 Inactive dx: yeast dermatitis Lyrica 100 mg capsule RxNorm: 300077 Take 1 Capsule(s) Oral QHS every night at bedtime 03/13/20 20 Inactive Lyrica 50 mg capsule RxNorm: 949590 Take 1 Capsule(s) Oral QAM every morning 03/13/20 20 Inactive ketoconazole 2 % shampoo RxNorm: 563903 Apply Topical two times a week with showers 03/11/20 20 Inactive cholecalciferol (vitamin D3) 50 mcg (2,000 unit) tablet RxNorm: 371991 Take 1 Tablet(s) Oral QD 03/11/20 20 021 Inactive Zetia 10 mg tablet RxNorm: 785087 Take 1 Tablet(s) Oral QD 03/07/20 20 021 Inactive Zetia 10 mg tablet RxNorm: 399496 Take 1 Tablet(s) Oral QD 03/07/20 20 Inactive Lyrica 50 mg capsule RxNorm: 907556 Take 1 Capsule(s) Oral QAM every morning 02/15/20 20 Inactive Lyrica 100 mg capsule RxNorm: 580524 Take 1 Capsule(s) Oral QHS every night at bedtime 02/15/20 20 Inactive Lyrica 100 mg capsule RxNorm: 054323 Take 1 Capsule(s) Oral QHS every night at bedtime 02/15/20 20 Inactive Lyrica 50 mg capsule RxNorm: 708433 Take 1 Capsule(s) Oral QAM every morning 02/15/20 20 10/01/2 020 Inactive metoprolol succinate ER 200 mg tablet,extended release 24 hr RxNorm: 662439 Take 1 Tablet(s) Oral QD 08/12/19 23 Active loperamide 2 mg capsule RxNorm: 962671 Take 1 Capsule(s) Oral QID as needed 06/12/19 22 Active hydralazine 50 mg tablet RxNorm: 658702 Take 1 Tablet(s) Oral QID 08/12/19 23 Active venlafaxine ER 75 mg capsule,extended release 24 hr RxNorm: 841696 Take 3 Capsule(s) Oral QD 06/12/19 22 023 Inactive polyethylene glycol 3350 17 gram/dose oral powder RxNorm: 779147 Take 17=1 capful Gram(s) Oral BID as needed mix with 4-8oz of liquid 06/12/19 22 024 Inactive icosapent ethyl 1 gram capsule RxNorm: 4767662 Take 2 Capsule(s) (2 gm) Oral BID with meals 10/07/19 23 023 Inactive Okay to dispense one 2gm tab if you have that available. Levemir FlexTouch U-100 Insulin 100 unit/mL (3 mL) subcutaneous pen RxNorm: 680398 Inject 80 Unit(s) Subcutaneous BID 07/14/19 23 023 Inactive Novolog Flexpen U-100 Insulin aspart 100 unit/mL (3 mL) subcutaneous RxNorm: 0874755 Insert 30 Unit(s) Subcutaneous TID with meals 10/08/19 22 022 Inactive Medication Administered No Medication Administered data Procedures Procedure Codes Date DEBRIDE NAIL 1-5 CPT-4: 06635 08/10/2023 Vital Signs Date Vital 08/10/2023 Heart Rate 1: 73 bpm Code: 8867-4 SpO2: 92% Temperature: 36.7 (C) / 98.0 (F) Reason For Visit No Reason For Visit data Encounters Encounter Performer Location Location Address Codes Date ([address]) Home or Residence Visit Est Pt - Moderate Level, 40 mins Diagnosis: Lower extremity edema[ICD10: R60.0] Diagnosis: Major depression, recurrent[ICD10: F33.9] Diagnosis: Onychogryposis[I CD10: L60.2] Diagnosis: PVD (peripheral vascular disease)[ICD10: I73.9] Harrison Munson [facility] [address] [place] [address] CPT-4: 56451 08/10/2023 Plan of Care Planned Activity Notes Codes Status Date Appointment: Sandra Clark WPtel: [address] [facility] 300 [id number] Telehealth Psych Follow Up 12/09 Appointment: Tapan Shirley WPtel: [address] [facility] 300 [id number] [place] [facility] 10/26/2022 Referral: [facility] WPtel: [address] , [address] [id number] [place] Referral Records Received 09/21/2022 Appointment: Tapan Shirley WPtel: [address] [facility] 300 [id number] [place] F/U 08/11/2022 Appointment: Tapan Shirley WPtel: [address] [facility] 300 [id number] [place] F/U 07/14/2022 Appointment: Tapan Shirley WPtel: [address] [facility] 300 [id number] [place] F/U 02/10/2022 Referral: [facility] WPtel: [address] [id number] [place] Referral Completed 05/28/2021 Referral: General Cardiology [...] a hospitalization 05/2021 he moved to the [facility] to have closer nursing attention.??Sister Jyotsna involved in his care cell# [phone]??Guardian: Giulia (tapan met in person 09/01/21), now has Lexii (same group as giulia)Lab Schedule: *September (CBC with diff, CMP, A1c) (Novemebr: CBC, CMP, A1c, Lipids, VitD) 10/08/2023 PVD (peripheral vascular dis ease) Peripheral vascular disease is stable with current medication regiment discussed in edema diagnosis tile. Will continue with current plan of care. TEDs to be worn daily and elevation of legs while in chair.?? Lower extremity edema Mild non-pitting edema present. [...] mg QD. Continue with current plan of care. Consider BHI.?? Onychogryposis Toenails debrided today.?? R) 2 L) 3?? Medical grade nail clipper used to reduce length and thickness. Will continue to monitor length at each visit and debride as needed.?? No signs of ingrown toenails or infection today.??. 08/10/2023
--- OUTSIDE RECORDS SUMMARY | 2023-11-03 10:27 | XMS_ITS | CCD ---
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 tablet,extended release 24 hr RxNorm: 446594 Take 1 Tablet(s) Oral QD 12/04/19 21 023 Inactive ciprofloxacin 500 mg tablet RxNorm: 147967 Take 1 Tablet(s) Oral QD 11/30/19 21 021 Inactive DX ofloxacin otic drops Accu-Chek Guide test strips RxNorm: USE 1 TO CHECK GLUCOSE 4 TIMES DAILY AND NEEDED 11/15/19 21 023 Inactive Blood Glucose Test strips RxNorm: Use 1 Test Strip QID at PRN 11/05/19 21 023 Inactive E11.42 lisinopril 30 mg tablet RxNorm: 042242 Take 1 Tablet(s) Oral QD 10/30/19 21 021 Inactive lisinopril 20 mg tablet RxNorm: 972695 Take 1 Tablet(s) Oral QD 10/23/19 21 021 Inactive lisinopril 20 mg tablet RxNorm: 572909 Take 1 Tablet(s) Oral QD 10/23/19 21 021 Inactive lisinopril 10 mg tablet RxNorm: 281989 Take 1 Tablet(s) Oral QD 10/02/19 21 021 Inactive icosapent ethyl 1 gram capsule RxNorm: 0506785 Take 2 Capsule(s) (2 gm) Oral BID with meals 09/12/19 024 Inactive Okay to dispense one 2gm tab if you have that available. icosapent ethyl 1 gram capsule RxNorm: 0910175 Take 2 Capsule(s) Oral BID 09/12/19 21 021 Inactive Okay to dispense one 2gm tab if you have that available. amlodipine 10 mg tablet RxNorm: 549697 Take 1 Tablet(s) Oral QD 09/04/19 21 022 Inactive aspirin 81 mg tablet,delayed release RxNorm: 801578 Take 1 Tablet(s) Oral QD 09/04/19 21 021 Inactive Levemir FlexTouch U-100 Insulin 100 unit/mL (3 mL) subcutaneous pen RxNorm: 991323 Inject 150 Unit(s) Subcutaneous BID 09/04/19 21 022 Inactive venlafaxine ER 150 mg tablet,extended release 24 hr RxNorm: 258243 Take 1 Tablet(s) Oral QD 09/04/19 21 021 Inactive clotrimazole-betame thasone 1 %-0.05 % topical cream RxNorm: 273512 Apply to rash on red area on left abdomen/chest Topical BID 08/10/19 21 021 Inactive amlodipine 5 mg tablet RxNorm: 226463 Take 1 Tablet(s) Oral QD 07/31/19 21 021 Inactive cephalexin 500 mg tablet RxNorm: 470179 Take 1 Tablet(s) Oral BID BID - Twice Daily 07/31/19 21 021 Inactive Start 08/01/20 pantoprazole 40 mg tablet,delayed release RxNorm: 037244 Take 1 Tablet(s) Oral QAM every morning 07/08/19 022 Inactive senna 8.6 mg tablet RxNorm: 448848 Take 1 Tablet(s) Oral QD 07/08/19 022 Inactive carbamazepine 200 mg tablet RxNorm: 942127 Take 1 Tablet(s) Oral BID 07/08/19 022 Inactive clopidogrel 75 mg tablet RxNorm: 709998 Take 1 Tablet(s) Oral QD 07/08/19 021 Inactive Blood Glucose Test strips RxNorm: Use 1 Test Strip QID at PRN 07/08/19 Inactive E11.42 Novolog Flexpen U-100 Insulin aspart 100 unit/mL (3 mL) subcutaneous RxNorm: 7723381 Administer per sliding scale Milliliter(s) Subcutaneous TID 151-200: 10 u; 201-250: 20 u; 251-300: 30 u; 301-350: 40 u; 351-400: 50 u. 07/08/19 022 Inactive lisinopril 5 mg tablet RxNorm: 460316 Take 1 Tablet(s) Oral QD 07/08/19 Inactive Novolog Flexpen U-100 Insulin aspart 100 unit/mL (3 mL) subcutaneous RxNorm: 8713504 Inject 85 Unit(s) Subcutaneous TID 07/08/19 022 Inactive pravastatin 80 mg tablet RxNorm: 734477 Take 1 Tablet(s) Oral QHS every night at bedtime 07/08/19 023 Inactive clotrimazole 1 % topical cream RxNorm: 769352 Apply to bilateral groin areas Topical BID 07/08/19 022 Inactive metoprolol succinate ER 200 mg tablet,extended release 24 hr RxNorm: 980433 Take 1 Tablet(s) Oral QD 07/08/19 021 Inactive Vitamin D3 25 mcg (1,000 unit) tablet RxNorm: 568187 Take 1 Tablet(s) Oral QD 07/08/19 021 Inactive isosorbide dinitrate 30 mg tablet RxNorm: 896406 Take 1 Tablet(s) Oral QD 07/08/19 21 021 Inactive Levemir FlexTouch U-100 Insulin 100 unit/mL (3 mL) subcutaneous pen RxNorm: 952242 Inject 140 Unit(s) Subcutaneous BID 07/08/19 21 021 Inactive torsemide 20 mg tablet RxNorm: 111013 Take 1 Tablet(s) Oral QD 07/08/19 21 023 Inactive venlafaxine 75 mg tablet RxNorm: 796039 Take 1 Tablet(s) Oral QD 07/08/19 021 Inactive acetaminophen 500 mg tablet RxNorm: 609824 Take 1 Tablet(s) Oral TID as needed for headache 06/18/19 Inactive acetaminophen 500 mg tablet RxNorm: 949856 Take 1 Tablet(s) Oral TID as needed for headache 06/18/19 021 Inactive Lyrica 100 mg capsule RxNorm: 679949 Take 1 Capsule(s) Oral QHS every night at bedtime 06/11/19 021 Inactive Lyrica 50 mg capsule RxNorm: 644250 Take 1 Capsule(s) Oral QAM every morning 06/10/19 21 Inactive hydrocortisone 2.5 % topical cream RxNorm: 871731 Apply to bilateral groin creases Topical BID 05/15/20 20 021 Inactive clotrimazole 1 % topical cream RxNorm: 952436 Apply to bilateral groin areas Topical BID 05/15/20 20 021 Inactive Lyrica 50 mg capsule RxNorm: 068912 Take 1 Capsule(s) Oral QAM every morning 05/14/20 20 Inactive Lyrica 100 mg capsule RxNorm: 282356 Take 1 Capsule(s) Oral QHS every night at bedtime 05/14/20 20 Inactive Lancets,Thin 28 gauge RxNorm: Use 1 as directed QID and PRN 04/24/20 20 Inactive Blood Glucose Monitoring kit RxNorm: Use as directed QID and PRN 04/24/20 024 Inactive Blood Glucose Test strips RxNorm: [...] Inactive Nystop 100,000 unit/gram topical powder RxNorm: 670048 Apply to abd folds, under breasts and L side of groin Topical BID x 14 days, then BID PRN 04/08/20 20 Inactive dx: yeast dermatitis Lyrica 100 mg capsule RxNorm: 346550 Take 1 Capsule(s) Oral QHS every night at bedtime 03/13/20 20 Inactive Lyrica 50 mg capsule RxNorm: 988606 Take 1 Capsule(s) Oral QAM every morning 03/13/20 20 Inactive ketoconazole 2 % shampoo RxNorm: 416941 Apply Topical two times a week with showers 03/11/20 20 024 Inactive cholecalciferol (vitamin D3) 50 mcg (2,000 unit) tablet RxNorm: 863229 Take 1 Tablet(s) Oral QD 03/11/20 20 021 Inactive Zetia 10 mg tablet RxNorm: 569356 Take 1 Tablet(s) Oral QD 03/07/20 20 021 Inactive Zetia 10 mg tablet RxNorm: 740589 Take 1 Tablet(s) Oral QD 03/07/20 20 Inactive Lyrica 50 mg capsule RxNorm: 607783 Take 1 Capsule(s) Oral QAM every morning 02/15/20 20 Inactive Lyrica 100 mg capsule RxNorm: 029601 Take 1 Capsule(s) Oral QHS every night at bedtime 02/15/20 20 Inactive Lyrica 100 mg capsule RxNorm: 734152 Take 1 Capsule(s) Oral QHS every night at bedtime 02/15/20 20 020 Inactive Lyrica 50 mg capsule RxNorm: 931124 Take 1 Capsule(s) Oral QAM every morning 02/15/20 20 020 Inactive metoprolol succinate ER 200 mg tablet,extended release 24 hr RxNorm: 850776 Take 1 Tablet(s) Oral QD 08/12/19 23 Active loperamide 2 mg capsule RxNorm: 835171 Take 1 Capsule(s) Oral QID as needed 06/12/19 22 Active hydralazine 50 mg tablet RxNorm: 393041 Take 1 Tablet(s) Oral QID 08/12/19 23 Active venlafaxine ER 75 mg capsule,extended release 24 hr RxNorm: 773466 Take 3 Capsule(s) Oral QD 06/12/19 22 023 Inactive polyethylene glycol 3350 17 gram/dose oral powder RxNorm: 641819 Take 17=1 capful Gram(s) Oral BID as needed mix with 4-8oz of liquid 06/12/19 22 024 Inactive icosapent ethyl 1 gram capsule RxNorm: 5994674 Take 2 Capsule(s) (2 gm) Oral BID with meals 10/07/19 23 023 Inactive Okay to dispense one 2gm tab if you have that available. Levemir FlexTouch U-100 Insulin 100 unit/mL (3 mL) subcutaneous pen RxNorm: 826235 Inject 80 Unit(s) Subcutaneous BID 07/14/19 23 023 Inactive Novolog Flexpen U-100 Insulin aspart 100 unit/mL (3 mL) subcutaneous RxNorm: 0813021 Insert 30 Unit(s) Subcutaneous TID with meals 10/08/19 22 022 Inactive Medication Administered No Medication Administered data Reason For Visit No Reason For Visit data Plan of Care Planned Activity Notes Codes Status Date Referral: [facility] [place]: [address], [address] [id number] [place] Referral Records Received 09/21/2022 Referral: [facility] [place]: [address] [facility] [address] [id number] [place] Referral Completed 05/28/2021 Referral: General Cardiology [...] attention.??Sister Jyotsna involved in his care cell# [phone]??Guardian: Don (tapan met in person 09/01/21), now has Lexii (same group as don)Lab Schedule: /September*September (CBC with diff, CMP, A1c) (Novemebr: CBC, CMP, A1c, Lipids, VitD) 10/08/2023
--- OUTSIDE RECORDS SUMMARY | 2023-11-03 10:27 | XMS_ITS | CCD ---
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 Role Phone Harrison Durham Primary Care Provider Leona vailable Harrison Durham Chronic Care Management U navailable Summary Purpose DataExchange Insurance Providers Payer name Policy type / Coverage type Covered democrat ID Effective Begin Date Effective End Date [place] Part B [id number] Unknown Unknown [place] Medicare Part B [id number] Unknown Unknown Family history Sister Brittany Suggs Diagnosis Age At Onset No Family Disease Entered N/A Runs in the family Diagnosis Age At Onset No Known Diseases N/A Sister Blanka Mcduffie Diagnosis Age At Onset No Family Disease Entered N/A Social History Social History Element Codes Description Effec tive Dates Marital status Unknown Single 10/07/2021 Living arrangements Unknown Fpc 09/03/[address]: 1893002 Non-Smoker / No History of Smoking 09/02/[address]: 427578337 No Alcohol Consum ption 09/02/2020 Allergies, Adverse Reactions, Alerts Substance Reaction Codes Entered Date Inactivated Date Status * NO KNOWN FOOD ALLERGIES Unknown 07/13/2023 No Inactive Date Active LISINOPRIL RxNorm: 05608 02/12/2020 No Inactive Da te Active Metformin [...] 08/10/2023 Active Coronary artery disease invo lving [place] coronary [...] ICD-10: F81.9 ICD-9: 315.2 03/03/2023 Active 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 ICD-10: Z79.899 ICD-9: [...] Z23 ICD-9: V03.89 02/10/2022 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 ICD-10: Z79.4 02/10 [...] Fill Instructions pregabalin 100 mg capsule RxNorm: 781252 Take 1 Capsule(s) Oral QAM every morning 09/07/19 24 024 Active rosuvastatin 40 mg tablet RxNorm: 037503 Take 1 Tablet(s) Oral QPM every evening 07/13/19 24 No Stop Date Active ezetimibe 10 mg tablet RxNorm: 143076 Take 1 Tablet(s) Oral QD 07/13/19 24 No Stop Date Active bisacodyl 10 mg rectal suppository RxNorm: 261471 Insert 1 Suppository Rectal QD as needed 07/13/19 24 No Stop Date Active polyethylene glycol 3350 17 gram/dose oral powder RxNorm: 667335 Take 17 Gram(s) Oral BID as needed mix in 4-8ox water 07/13/19 24 No Stop Date Active ketoconazole 2 % shampoo RxNorm: 979528 Apply 1 Application Topical UD as directed 07/13/19 24 No Stop Date Active aripiprazole 15 mg tablet RxNorm: 333692 Take 1/2 Tablet(s) Oral QD 07/13/19 24 No Stop Date Active Ozempic 1 mg/dose (4 mg/3 mL) subcutaneous pen injector RxNorm: 4120073 Inject 1 Milligram(s) Subcutaneous QW once a week 07/13/19 24 No Stop Date Active Guaifenesin AC 10 mg-100 mg/5 mL oral liquid RxNorm: 803766 Take 10 Milliliter(s) Oral Q4H every four hours as needed 07/13/19 24 No Stop Date Active isosorbide mononitrate ER 60 mg tablet,extended release 24 hr RxNorm: 363358 Take 1 Tablet(s) Oral QD 07/13/19 24 No Stop Date Active ammonium lactate 12 % topical cream RxNorm: 691822 Apply 1 Application Topical BID 07/13/19 24 No Stop Date Active hydrocortisone 2.5 % topical cream RxNorm: 472339 Apply 1 Application Topical BID as needed 07/13/19 24 No Stop Date Active rosuvastatin 20 mg sprinkle capsule RxNorm: 9595623 Take 1 Capsule(s) Oral QD 07/13/19 24 No Stop Date Active Vascepa 1 gram capsule RxNorm: 9627881 Take 2 Capsule(s) Oral BID 07/13/19 24 No Stop Date Active venlafaxine ER 75 mg capsule,extended release 24 hr RxNorm: 701509 Take 3 Capsule(s) Oral QD 07/13/19 24 No Stop Date Active Basaglar KwikPen U-100 Insulin 100 unit/mL (3 mL) subcutaneous RxNorm: 7271477 Inject 30U SubQ twice daily 07/07/19 24 025 Active Please dispense one month supply. Basaglar KwikPen U-100 Insulin 100 unit/mL (3 mL) subcutaneous RxNorm: 3246491 Inject 30U SubQ twice daily 07/07/19 24 024 Inactive Please dispense one month supply. pregabalin 150 mg capsule RxNorm: 840584 Take 1 Capsule(s) Oral QHS every night at bedtime 07/05/19 24 024 Active pregabalin 150 mg capsule RxNorm: 705221 Take 1 Capsule(s) Oral QHS every night at bedtime 07/05/19 24 024 Inactive polyethylene glycol 3350 17 gram/dose oral powder RxNorm: 432596 Take 1 Packet Oral QD as needed (1 packet = 17g) mix with 4-8oz of liquid 06/15/19 24 024 Inactive bisacodyl 10 mg rectal suppository RxNorm: 724152 Insert one suppository per rectum once daily as needed for constipation 06/15/19 24 024 Inactive bisacodyl 10 mg rectal suppository RxNorm: 611901 Insert one suppository per rectum once daily as needed for constipation 06/15/19 24 024 Inactive pregabalin 100 mg capsule RxNorm: 905122 Take 1 Capsule(s) Oral QAM every morning 04/27/20 23 024 Inactive Levemir FlexPen 100 unit/mL (3 mL) solution subcutaneous insulin pen RxNorm: 330908 Inject 30 Unit(s) Subcutaneous BID 04/27/20 024 Inactive rosuvastatin 40 mg tablet RxNorm: 571980 Take 1 Tablet(s) Oral QPM every evening 04/16/20 024 Inactive D/C rosuvastatin 20mg venlafaxine ER 75 mg capsule,extended release 24 hr RxNorm: 999214 Take 3 Capsule(s) Oral QD 04/14/20 023 Inactive pregabalin 100 mg capsule RxNorm: 594467 Take 1 Capsule(s) Oral QAM every morning [...] meter clotrimazole 1 % topical cream RxNorm: 665041 Take apply topically to abdominal folds twice daily for 14 days 03/12/20 024 Inactive Ozempic 1 mg/dose (4 mg/3 mL) subcutaneous pen injector RxNorm: 8714935 Inject 1 Milligram(s) Subcutaneous QW once a week 03/11/20 023 Inactive rosuvastatin 20 mg tablet RxNorm: 438718 Take 1 Tablet(s) Oral QD 02/26/20 023 Inactive d/c pravastatin 80mg Ozempic 1 mg/dose (4 mg/3 mL) subcutaneous pen injector RxNorm: 7473153 Inject 1 Milligram(s) Subcutaneous QW once a week 02/20/20 023 Inactive pregabalin 150 mg capsule RxNorm: 047140 Take 1 Capsule(s) Oral HS at bed time 02/19/20 23 023 Inactive pregabalin 100 mg capsule RxNorm: 387622 Take 1 Capsule(s) Oral QAM every morning 02/18/20 023 Inactive venlafaxine ER 75 mg capsule,extended release 24 hr RxNorm: 607316 Take 3 Capsule(s) Oral QD 02/04/20 23 023 Inactive FreeStyle Chema 2 Sensor kit RxNorm: use as directed 02/04/20 23 023 Inactive FreeStyle Chema 2 Sensor kit RxNorm: use as directed 02/04/20 23 024 Inactive fluconazole 150 mg tablet RxNorm: 412401 Take 1 Tablet(s) Oral on day 3 and on day 6 02/03/20 024 Active chlorthalidone 25 mg tablet RxNorm: 709672 Take 1 Tablet(s) Oral QAM every morning 02/03/20 No Stop Date Active venlafaxine ER 150 mg capsule,extended release 24 hr RxNorm: 861965 Take 1 Capsule(s) Oral QD 02/03/20 23 023 Inactive acetaminophen 500 mg tablet RxNorm: 025602 1 TABLET ORALLY 3 TIMES DAILY (MAX APAP:4GM/24HR) 12/15/19 23 023 Inactive potassium chloride ER 20 mEq tablet,extended release RxNorm: 784950 Take 1 Tablet(s) Oral BID 12/09/19 23 024 Inactive d/c 20mEq once daily (sent from hospital) clotrimazole 1 % topical cream RxNorm: 961376 apply 1g topically to top of feet and in between toes BID 12/09/19 23 023 Inactive nystatin 100,000 unit/gram topical powder RxNorm: 315857 APPLY TO AFFECTED AREAS TOPICALLY 2 TIMES DAILY 11/21/19 23 024 Inactive Nystop 100,000 unit/gram topical powder RxNorm: 880707 Apply to abd folds, under breasts and L side of groin Topical BID x 14 days, then BID PRN 11/20/19 23 023 Inactive dx: yeast dermatitis [place] Ultra Strength 4 %-30 %-10 % topical cream RxNorm: 606883 Apply 1 Gram(s) Topical QID PRN to feet and legs for neuropathic pain 11/11/19 23 024 Active hydrocortisone 2.5 % topical cream RxNorm: 448859 Apply 1/2 Gram(s) Topical BID as needed 11/10/19 024 Inactive clotrimazole 1 % topical cream RxNorm: 366499 Apply 1/2 Gram(s) Topical BID Apply to affected areas of groin, periarea, and abdominal topically 2 times daily 11/10/19 23 023 Inactive Humulin R U-500 (Concentrated) Insulin 500 unit/mL subcutaneous soln RxNorm: 300171 Inject 100 Unit(s) Subcutaneous TID 10/07/19 024 Inactive Levemir FlexPen 100 unit/mL (3 mL) solution subcutaneous insulin pen RxNorm: 169346 Inject 30 Unit(s) Subcutaneous BID 10/07/19 023 Inactive Ozempic 0.25 mg or 0.5 mg (2 mg/3 mL) subcutaneous pen injector RxNorm: 7070038 Inject 1/2 Milligram(s) Subcutaneous QW once a week 10/07/19 024 Inactive aripiprazole 15 mg tablet RxNorm: 104093 1/2 TAB (7.5MG) ORALLY DAILY (DX:MAJOR DEPRESSIVE DISORDER) 09/23/19 023 Inactive Lancets,Thin 28 gauge RxNorm: Use 1 as directed QID 09/15/19 23 024 Inactive Accu-Chek Guide test strips RxNorm: Use 1 Test Strip QID 09/15/19 23 023 Inactive ok to substitute with any covered alternative test strip torsemide 20 mg tablet RxNorm: 254283 Take 1 Tablet(s) Oral BID 09/09/19 23 024 Inactive d/c once daily dosing carvedilol 25 mg tablet RxNorm: 040801 Take 1 Tablet(s) Oral QD 08/25/19 23 024 Inactive pregabalin 150 mg capsule RxNorm: 950008 1 Capsule(s) Oral HS at bed time 08/18/19 023 Inactive pregabalin 100 mg capsule RxNorm: 505703 1 Capsule(s) Oral QAM every morning 08/18/19 23 023 Inactive carvedilol 25 mg tablet RxNorm: 735921 1 Tablet(s) Oral QD 07/28/19 23 023 Inactive lisinopril 20 mg tablet RxNorm: 753321 Give 1 Tablet(s) Oral QD 07/28/19 23 023 Inactive Lyrica 150 mg capsule RxNorm: 728010 Take 1 Capsule(s) Oral QHS every night at bedtime 07/19/19 23 023 Inactive d/c 100mg dose Diflucan 150 mg tablet RxNorm: 954489 Take 1 Tablet(s) Oral QD repeat on day 3 and 6 07/19/19 23 023 Inactive pregabalin 100 mg capsule RxNorm: 757331 Take 1 Capsule(s) Oral QAM every morning 07/19/19 023 Inactive gatifloxacin 0.5 % eye drops RxNorm: 295933 Instill 1 Drop(s) as directed TID Instill 1 drop in to affected eye(s) starting 1 day prior to surgery and continue until gone (do not exceed 4 weeks). 07/13/19 23 023 Inactive carvedilol 25 mg tablet RxNorm: 493649 2 Tablet(s) Oral BID 07/13/19 023 Inactive Humulin R Regular U-100 Insulin 100 unit/mL injection solution RxNorm: 456819 85 Unit(s) Injection TID 07/13/19 023 Inactive ketorolac 0.5 % eye drops RxNorm: 198979 Instill 1 Drop(s) as directed QID Instill 1 drop into affected eye(s) 4 times daily starting 1 day prior to surgery and continue until gone (do not exceed 4 weeks). 07/13/19 23 023 Inactive Diflucan 150 mg tablet RxNorm: 198640 Take 1 Tablet(s) Oral QD repeat on day 3 and 6 06/30/19 23 023 Inactive Accu-Chek Guide test strips RxNorm: Use 1 Test Strip QID Use 1 test strip to monitor blood glucose 4 times daily and as needed. Dx:E11.42. 06/23/19 23 023 Inactive ok to substitute with any covered alternative test strip dextromethorphan-gu aifenesin 10 mg-100 mg/5 mL oral liquid RxNorm: 408418 Take 10 Milliliter(s) Oral every 4 hours as needed for cough 06/19/19 023 Inactive dextromethorphan-gu aifenesin 10 mg-100 mg/5 mL oral liquid RxNorm: 501361 Take 10 Milliliter(s) Oral every 4 hours as needed for cough 06/19/19 023 Inactive Lyrica 150 mg capsule RxNorm: 509909 Take 1 Capsule(s) Oral QHS every night at bedtime 06/18/19 023 Inactive d/c 100mg dose aripiprazole 15 mg tablet RxNorm: 237557 1/2 TAB (7.5MG) ORALLY DAILY (DX:MAJOR DEPRESSIVE DISORDER) 06/05/19 023 Inactive pregabalin 100 mg capsule RxNorm: 285024 1 Capsule(s) Oral QAM every morning 06/02/19 023 Inactive Banophen 50 mg capsule RxNorm: 7083893 Take 1 Capsule(s) Oral Q6H every 6 hours as needed 05/19/19 23 No Stop Date Active Novolog Flexpen U-100 Insulin aspart 100 unit/mL (3 mL) subcutaneous RxNorm: 1454771 Inject 10 Unit(s) Subcutaneous QHS every night at bedtime with nighttime snack 04/08/20 022 Inactive Novolog Flexpen U-100 Insulin aspart 100 unit/mL (3 mL) subcutaneous RxNorm: 9448746 Inject 42 Unit(s) Subcutaneous TID in addition to sliding scale 04/08/20 22 022 Inactive d/c 36u albuterol sulfate HFA 90 mcg/actuation aerosol inhaler RxNorm: 2858798 Take 2 Puff(s) Inhalation Q4H every four hours as needed as needed for SOB, cough, or wheezing 04/07/20 22 030 Active Banophen 50 mg capsule RxNorm: 7496711 Take 1 Capsule(s) Oral Q6H every 6 hours as needed 04/06/20 023 Inactive diphenhydramine 50 mg tablet RxNorm: 3352416 Take 1 Tablet(s) Oral Q6H every 6 hours as needed 04/06/20 22 022 Inactive diphenhydramine 50 mg tablet RxNorm: 8720349 1 Tablet(s) Oral Q6H every 6 hours as needed 04/06/20 22 022 Inactive Abilify 15 mg tablet RxNorm: 805537 1/2 Tablet(s) Oral QD 03/10/20 22 023 Inactive Shingrix (PF) 50 mcg/0.5 mL intramuscular suspension, kit RxNorm: 8047301 Administer 1/2 Milliliter(s) Intramuscular QD one time shingrix step 2 ( step 1 given 11/04/21) WITH needle - Nursing please administer upon arrival and once administered 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, 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, 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, and lot# so we can update [facility] 02/18/20 22 022 Inactive dispense with needle Shingrix (PF) 50 mcg/0.5 mL intramuscular suspension, kit RxNorm: 8621301 Administer 1/2 Milliliter(s) Intramuscular QD one time shingrix step 2 ( step 1 given 11/04/21) WITH needle - Nursing please administer upon arrival and once administered post a 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 message 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, 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, 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, and lot# so we can update [facility]IC 02/18/20 22 022 Inactive dispense with needle polyethylene glycol 3350 17 gram/dose oral powder RxNorm: 606195 Take 17=1 capful Gram(s) Oral QD mix with 4-8oz of liquid 01/08/20 22 023 Inactive take this in addition to BID prn order Lyrica 100 mg capsule RxNorm: 206144 Take 1 Capsule(s) Oral QAM every morning 01/08/20 22 022 Inactive d/c 50mg dose acetaminophen 500 mg tablet RxNorm: 955041 Take 1 Tablet(s) Oral TID 01/08/20 22 022 Inactive d/c PRN order Lyrica 150 mg capsule RxNorm: 542279 Take 1 Capsule(s) Oral QHS every night at bedtime 01/08/20 22 023 Inactive d/c 100mg dose Abilify 5 mg tablet RxNorm: 049782 Take 1 Tablet(s) Oral QD take 1 tab po QD #30 refill 5 dx: MDD 12/12/19 22 022 Inactive Abilify 5 mg tablet RxNorm: 435896 Take 1 Tablet(s) Oral QD take 1 tab po QD #30 refill 5 dx: MDD 12/12/19 22 022 Inactive Novolog Flexpen U-100 Insulin aspart 100 unit/mL (3 mL) subcutaneous RxNorm: 5457037 Inject 42 Unit(s) Subcutaneous TID in addition to sliding scale 12/10/19 22 022 Inactive d/c 36u chlorthalidone 25 mg tablet RxNorm: 308371 Take 1 Tablet(s) Oral QAM every morning 12/10/19 22 023 Inactive pregabalin 50 mg capsule RxNorm: 621839 Take 1 Capsule(s) Oral QAM every morning 11/12/19 22 022 Inactive tetanus-diphtheria toxoids-Td 2 Lf unit-2 Lf unit/0.5 mL IM suspension RxNorm: 139 Take 0.5 Miscellaneous Intramuscular 11/12/19 22 022 Inactive need tdap - nursing to administer upon arrival pregabalin 50 mg capsule RxNorm: 280524 Take 1 Capsule(s) Oral QAM every morning 10/16/19 22 022 Inactive pregabalin 50 mg capsule RxNorm: 083536 Take 1 Capsule(s) Oral QAM every morning 10/16/19 22 022 Inactive pregabalin 50 mg capsule RxNorm: 280035 1 Capsule(s) Oral QAM every morning 10/15/19 22 022 Inactive Shingrix (PF) 50 mcg/0.5 mL intramuscular suspension, kit RxNorm: 3926452 Administer 1/2 Milliliter(s) Intramuscular one time Nursing please administer upon arrival and once administered post 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 10/09/19 22 Inactive shingrix step 1 cholecalciferol (vitamin D3) 1,250 mcg (50,000 unit) capsule RxNorm: 555950 Take 1 Capsule(s) Oral QW once a [...] aspart 100 unit/mL (3 mL) subcutaneous RxNorm: 0619321 Inject 10 Unit(s) Subcutaneous QHS every night at bedtime with nighttime snack 10/08/19 22 Inactive Shingrix (PF) 50 mcg/0.5 mL intramuscular suspension, kit RxNorm: 4795855 ADMINISTER 2-DOSE SERIES PER CDC GUIDELINES 10/08/19 22 Active Shingrix (PF) 50 mcg/0.5 mL intramuscular suspension, kit RxNorm: 3954202 ADMINISTER 2-DOSE SERIES PER CDC GUIDELINES 10/08/19 22 022 Inactive Novolog Flexpen U-100 Insulin aspart 100 unit/mL (3 mL) subcutaneous RxNorm: 8579379 Inject 36 Unit(s) Subcutaneous TID in addition to sliding scale 10/08/19 22 Inactive Novofine Autocover 30 gauge x 1/3 needle RxNorm: Use 1 Miscellaneous UD as directed Use 1 needle as directed to administer insulin 5 times a day Dx:E11.42. 10/03/19 22 Inactive ok to substitute with any covered alternative pen needle benzoyl peroxide 10 % topical cleanser RxNorm: 860351 Apply 1 Application Topical QD apply to face, wash rinse and dry once daily (may change to QOD if drying) 08/19/19 22 022 Inactive (%covered by insurance) #60ml refill 11 dx: acne benzoyl peroxide 10 % topical cleanser RxNorm: 336768 Apply 1 Application Topical QD apply to face, wash rinse and dry once daily (may change to QOD if drying) 08/19/19 22 022 Inactive (%covered by insurance) #60ml refill 11 dx: acne benzoyl peroxide 10 % topical cleanser RxNorm: 825866 Apply 1 Application Topical QD apply to face, wash rinse and dry once daily (may change to QOD if drying) 08/19/19 22 022 Inactive (%covered by insurance) #60ml refill 11 dx: acne Lyrica 50 mg capsule RxNorm: 565754 Take 1 Capsule(s) Oral QAM every morning Take 1 capsule by mouth once daily 08/19/19 22 022 Inactive benzoyl peroxide 10 % topical cleanser RxNorm: 684037 Apply 1 Application Topical QD apply to face, wash rinse and dry once daily (may change to QOD if drying) 08/19/19 022 Inactive (%covered by insurance) #60ml refill 11 dx: acne Lyrica 100 mg capsule RxNorm: 832952 Take 1 Capsule(s) Oral QHS every night at bedtime Take 1 capsule by mouth once daily at bedtime 08/19/19 22 022 Inactive Lyrica 100 mg capsule RxNorm: 392964 Take 1 Capsule(s) Oral QHS every night at bedtime Take 1 capsule by mouth once daily at bedtime 08/16/19 22 Inactive Lyrica 50 mg capsule RxNorm: 949181 Take 1 Capsule(s) Oral QAM every morning Take 1 capsule by mouth once daily 08/16/19 22 Inactive Levemir FlexTouch U-100 Insulin 100 unit/mL (3 mL) subcutaneous pen RxNorm: 821237 Inject 86 Unit(s) Subcutaneous BID 08/05/19 22 05/23/2 022 Inactive d/c 83units BID Lyrica 100 mg capsule RxNorm: 991377 Take 1 Capsule(s) Oral QHS every night at bedtime Take 1 capsule by mouth once daily at bedtime 07/14/19 22 022 Inactive Lyrica 50 mg capsule RxNorm: 970216 Take 1 Capsule(s) Oral QAM every morning Take 1 capsule by mouth once daily 07/14/19 Inactive Levemir FlexTouch U-100 Insulin 100 unit/mL (3 mL) subcutaneous pen RxNorm: 977660 Inject 83 Unit(s) Subcutaneous BID 07/08/19 22 [...] test strip hydralazine 50 mg tablet RxNorm: 202552 Take 1 Tablet(s) Oral QID 05/05/20 21 022 Inactive venlafaxine ER 225 mg tablet,extended release 24 hr RxNorm: 098613 Take 1 Tablet(s) Oral QD 05/05/20 021 Inactive venlafaxine ER 225 mg tablet,extended release 24 hr RxNorm: 186821 Take 1 Tablet(s) Oral QD 05/05/20 022 Inactive isosorbide mononitrate ER 30 mg tablet,extended release 24 hr RxNorm: 243695 Take 1 Tablet(s) Oral QD 05/05/20 21 024 Inactive hydralazine 50 mg tablet RxNorm: 581022 Take 1 Tablet(s) Oral QID 05/05/20 21 Inactive aspirin 81 mg tablet,delayed release RxNorm: 249650 Take 1 Tablet(s) Oral QD 03/31/20 022 Inactive Vitamin D2 1,250 mcg (50,000 unit) capsule RxNorm: 3135720 Take 1 Capsule(s) Oral QW once a week x 12 weeks 03/31/20 022 Inactive Vitamin D2 1,250 mcg (50,000 unit) capsule RxNorm: 1865087 Take 1 Capsule(s) Oral QW once a week 03/31/20 021 Inactive Zetia 10 mg tablet RxNorm: 335336 Take 1 Tablet(s) Oral QD 03/31/20 024 Inactive Zetia 10 mg tablet RxNorm: 616921 Take 1 Tablet(s) Oral QD 03/31/20 021 Inactive hydralazine 25 mg tablet RxNorm: 549682 Take 1 Tablet(s) Oral QID 03/31/20 21 021 Inactive hydralazine 25 mg tablet RxNorm: 164962 Take 1 Tablet(s) Oral QID 03/31/20 021 Inactive hydralazine 10 mg tablet RxNorm: 646153 Take 1 Tablet(s) Oral QID 03/03/20 021 Inactive cephalexin 500 mg tablet RxNorm: 437776 Take 1 Tablet(s) Oral QID 02/27/20 021 Inactive cephalexin 500 mg tablet RxNorm: 642596 Take 1 Tablet(s) Oral QID 02/27/20 021 Inactive lisinopril 40 mg tablet RxNorm: 996232 Take 1 Tablet(s) Oral QD 02/11/20 023 Inactive Eliquis 5 mg tablet RxNorm: 5031375 Take 1 Tablet(s) Oral BID 01/05/20 21 022 Inactive Eliquis 5 mg tablet RxNorm: 8777142 Take 2 Tablet(s) Oral QD 01/01/20 021 Inactive Lyrica 50 mg capsule RxNorm: 589937 Take 1 Capsule(s) Oral QAM every morning 12/24/19 021 Inactive Lyrica 100 mg capsule RxNorm: 004591 Take 1 Capsule(s) Oral QHS every night at bedtime 12/24/19 021 Inactive clotrimazole 1 % topical cream RxNorm: 479906 Apply to right foot and toes Topical BID 12/04/19 21 023 Inactive metoprolol succinate ER 200 mg tablet,extended release 24 hr RxNorm: 541487 Take 1 Tablet(s) Oral QD 12/04/19 023 Inactive ciprofloxacin 500 mg tablet RxNorm: 509236 Take 1 Tablet(s) Oral QD 11/30/19 021 Inactive DX ofloxacin otic drops Accu-Chek Guide test strips RxNorm: USE 1 TO CHECK GLUCOSE 4 TIMES DAILY AND NEEDED 11/15/19 21 023 Inactive Blood Glucose Test strips RxNorm: Use 1 Test Strip QID at PRN 11/05/19 21 023 Inactive E11.42 lisinopril 30 mg tablet RxNorm: 835844 Take 1 Tablet(s) Oral QD 10/30/19 021 Inactive lisinopril 20 mg tablet RxNorm: 052190 Take 1 Tablet(s) Oral QD 10/23/19 21 021 Inactive lisinopril 20 mg tablet RxNorm: 594863 Take 1 Tablet(s) Oral QD 10/23/19 21 021 Inactive lisinopril 10 mg tablet RxNorm: 239096 Take 1 Tablet(s) Oral QD 10/02/19 21 021 Inactive icosapent ethyl 1 gram capsule RxNorm: 9674267 Take 2 Capsule(s) (2 gm) Oral BID with meals 09/12/19 21 024 Inactive Okay to dispense one 2gm tab if you have that available. icosapent ethyl 1 gram capsule RxNorm: 3810027 Take 2 Capsule(s) Oral BID 09/12/19 21 021 Inactive Okay to dispense one 2gm tab if you have that available. amlodipine 10 mg tablet RxNorm: 550183 Take 1 Tablet(s) Oral QD 09/04/19 21 022 Inactive aspirin 81 mg tablet,delayed release RxNorm: 591309 Take 1 Tablet(s) Oral QD 09/04/19 21 021 Inactive Levemir FlexTouch U-100 Insulin 100 unit/mL (3 mL) subcutaneous pen RxNorm: 017577 Inject 150 Unit(s) Subcutaneous BID 09/04/19 21 022 Inactive venlafaxine ER 150 mg tablet,extended release 24 hr RxNorm: 982398 Take 1 Tablet(s) Oral QD 09/04/19 21 021 Inactive clotrimazole-betame thasone 1 %-0.05 % topical cream RxNorm: 807765 Apply to rash on red area on left abdomen/chest Topical BID 08/10/19 21 021 Inactive amlodipine 5 mg tablet RxNorm: 528758 Take 1 Tablet(s) Oral QD 07/31/19 21 021 Inactive cephalexin 500 mg tablet RxNorm: 833360 Take 1 Tablet(s) Oral BID BID - Twice Daily 07/31/19 21 021 Inactive Start 08/01/20 pantoprazole 40 mg tablet,delayed release RxNorm: 236307 Take 1 Tablet(s) Oral QAM every morning 07/08/19 022 Inactive senna 8.6 mg tablet RxNorm: 937315 Take 1 Tablet(s) Oral QD 07/08/19 022 Inactive carbamazepine 200 mg tablet RxNorm: 175100 Take 1 Tablet(s) Oral BID 07/08/19 022 Inactive clopidogrel 75 mg tablet RxNorm: 804170 Take 1 Tablet(s) Oral QD 07/08/19 021 Inactive Blood Glucose Test strips RxNorm: Use 1 Test Strip QID at PRN 07/08/19 Inactive E11.42 Novolog Flexpen U-100 Insulin aspart 100 unit/mL (3 mL) subcutaneous RxNorm: 7072570 Administer per sliding scale Milliliter(s) Subcutaneous TID 151-200: 10 u; 201-250: 20 u; 251-300: 30 u; 301-350: 40 u; 351-400: 50 u. 07/08/19 022 Inactive lisinopril 5 mg tablet RxNorm: 405228 Take 1 Tablet(s) Oral QD 07/08/19 021 Inactive Novolog Flexpen U-100 Insulin aspart 100 unit/mL (3 mL) subcutaneous RxNorm: 4874947 Inject 85 Unit(s) Subcutaneous TID 07/08/19 022 Inactive pravastatin 80 mg tablet RxNorm: 764380 Take 1 Tablet(s) Oral QHS every night at bedtime 07/08/19 023 Inactive clotrimazole 1 % topical cream RxNorm: 185744 Apply to bilateral groin areas Topical BID 07/08/19 21 022 Inactive metoprolol succinate ER 200 mg tablet,extended release 24 hr RxNorm: 215276 Take 1 Tablet(s) Oral QD 07/08/19 21 021 Inactive Vitamin D3 25 mcg (1,000 unit) tablet RxNorm: 782860 Take 1 Tablet(s) Oral QD 07/08/19 021 Inactive isosorbide dinitrate 30 mg tablet RxNorm: 031869 Take 1 Tablet(s) Oral QD 07/08/1906 05/20/2 021 Inactive Levemir FlexTouch U-100 Insulin 100 unit/mL (3 mL) subcutaneous pen RxNorm: 644640 Inject 140 Unit(s) Subcutaneous BID 07/08/19 21 021 Inactive torsemide 20 mg tablet RxNorm: 371518 Take 1 Tablet(s) Oral QD 07/08/19 21 023 Inactive venlafaxine 75 mg tablet RxNorm: 440436 Take 1 Tablet(s) Oral QD 07/08/19 21 021 Inactive acetaminophen 500 mg tablet RxNorm: 155284 Take 1 Tablet(s) Oral TID as needed for headache 06/18/19 21 021 Inactive acetaminophen 500 mg tablet RxNorm: 168168 Take 1 Tablet(s) Oral TID as needed for headache 06/18/19 21 021 Inactive Lyrica 100 mg capsule RxNorm: 456867 Take 1 Capsule(s) Oral QHS every night at bedtime 06/11/19 21 021 Inactive Lyrica 50 mg capsule RxNorm: 431295 Take 1 Capsule(s) Oral QAM every morning 06/10/19 21 021 Inactive hydrocortisone 2.5 % topical cream RxNorm: 439249 Apply to bilateral groin creases Topical BID 05/15/20 20 021 Inactive clotrimazole 1 % topical cream RxNorm: 277032 Apply to bilateral groin areas Topical BID 05/15/20 20 021 Inactive Lyrica 50 mg capsule RxNorm: 290147 Take 1 Capsule(s) Oral QAM every morning 05/14/20 20 020 Inactive Lyrica 100 mg capsule RxNorm: 756456 Take 1 Capsule(s) Oral QHS every night [...] Inactive Nystop 100,000 unit/gram topical powder RxNorm: 379429 Apply to abd folds, under breasts and L side of groin Topical BID x 14 days, then BID PRN 04/08/20 20 Inactive dx: yeast dermatitis Lyrica 100 mg capsule RxNorm: 741336 Take 1 Capsule(s) Oral QHS every night at bedtime 03/13/20 20 Inactive Lyrica 50 mg capsule RxNorm: 423837 Take 1 Capsule(s) Oral QAM every morning 03/13/20 20 Inactive ketoconazole 2 % shampoo RxNorm: 220023 Apply Topical two times a week with showers 03/11/20 20 Inactive cholecalciferol (vitamin D3) 50 mcg (2,000 unit) tablet RxNorm: 539187 Take 1 Tablet(s) Oral QD 03/11/20 20 021 Inactive Zetia 10 mg tablet RxNorm: 283829 Take 1 Tablet(s) Oral QD 03/07/20 20 021 Inactive Zetia 10 mg tablet RxNorm: 161346 Take 1 Tablet(s) Oral QD 03/07/20 20 Inactive Lyrica 50 mg capsule RxNorm: 990912 Take 1 Capsule(s) Oral QAM every morning 02/15/20 20 Inactive Lyrica 100 mg capsule RxNorm: 353755 Take 1 Capsule(s) Oral QHS every night at bedtime 02/15/20 20 Inactive Lyrica 100 mg capsule RxNorm: 105530 Take 1 Capsule(s) Oral QHS every night at bedtime 10/01/ 020 Inactive Lyrica 50 mg capsule RxNorm: 061107 Take 1 Capsule(s) Oral QAM every morning 02/15/20 20 020 Inactive metoprolol succinate ER 200 mg tablet,extended release 24 hr RxNorm: 053275 Take 1 Tablet(s) Oral QD 08/12/19 23 Active loperamide 2 mg capsule RxNorm: 683376 Take 1 Capsule(s) Oral QID as needed 06/12/19 22 Active hydralazine 50 mg tablet RxNorm: 555280 Take 1 Tablet(s) Oral QID 08/12/19 23 Active venlafaxine ER 75 mg capsule,extended release 24 hr RxNorm: 673535 Take 3 Capsule(s) Oral QD 06/12/19 22 023 Inactive polyethylene glycol 3350 17 gram/dose oral powder RxNorm: 535878 Take 17=1 capful Gram(s) Oral BID as needed mix with 4-8oz of liquid 06/12/19 22 024 Inactive icosapent ethyl 1 gram capsule RxNorm: 1963810 Take 2 Capsule(s) (2 gm) Oral BID with meals 10/07/19 23 023 Inactive Okay to dispense one 2gm tab if you have that available. Levemir FlexTouch U-100 Insulin 100 unit/mL (3 mL) subcutaneous pen RxNorm: 727804 Inject 80 Unit(s) Subcutaneous BID 07/14/19 23 023 Inactive Novolog Flexpen U-100 Insulin aspart 100 unit/mL (3 mL) subcutaneous RxNorm: 4104459 Insert 30 Unit(s) Subcutaneous TID with meals 10/08/19 22 022 Inactive Medication Administered No Medication Administered data Procedures Procedure Codes Date DEBRIDE NAIL 6 OR MORE CPT-4: 98495 4 SYS BP LESS 140 CPT-4: G8752 09/07/2023 CUI BP LESS 90 CPT-4: G8754 09/07/2023 Vital Signs Date Vital 09/07/2023 Blood Pressure 1: 124/76 Code: 8480-6 Heart Rate 1: 77 bpm Code: 8867-4 SpO2: 95% Temperature: 36.8 (C) / 98.3 (F) Reason For Visit No Reason For Visit data Encounters Encounter Performer Location Location Address Codes Date ([address]) Home or Residence Visit Est Pt - [...] Z86.718] Diagnosis: Hypercoagulable state[ICD10: D68.59] Diagnosis: Onychogryposis[ICD10: L60.2] Harrison Munson [facility] [place] [facility] [address] [address] [place] [address] CPT-4: 32368 09/07/2023 Plan of Care Planned Activity Notes Codes Status Date Appointment: Sandra Clark WPtel: [address] [place], [place] [phone] Telehealth Psych Follow Up 12/09 Appointment: Tapan Shirley WPtel: [address] [place], [place] [phone] [facility] 10/26/2022 Ref[facility] [address] [facility] [id number] Referral Records Received 09/21/2022 Appointment: Tapan Shirley WPtel: [address] [place], [place] [phone] F/U 08/11/2022 Appointment: Tapan Shirley WPtel: [address] [facility] [address] [id number] [place] F/U 07/14/2022 Appointment: Tapan Shirley WPtel: [address] [facility] [address] [id number] [place] F/U 02/10/2022 Referral: Endocrinology Clin ic [facility] WPtel: [address] [facility] [address] [id number] [place] Referral Completed 05/28/2021 Referral: General Cardiology Referral Complet ed 01/03/2021 Referral: General Psychologist Referral Close d Referral: General Psychiatrist Referral Patient/Family Scheduling Appointment Instructions Comment Date Leonid is a?? [facility] Initial [facility] visit 01/2020. PMHx including DMII, CAD w/ 5 stents, Depression, Seizure Disorder and CKD stage 3. He moved into [facility] in 12/2019 but after a hospitalization 05/2021 he moved to the [facility] to have closer nursing attention.??Sister Jyotsna involved in his care cell# [phone]??Guardian: Giulia (tapan met in person 09/01/21), now [...] QD.?? Hydralazine added February 2021. Follows with [facility] with [facility]. Blood pressure today: 124/76 [...]
--- OUTSIDE RECORDS SUMMARY | 2023-11-03 10:29 | XMS_ITS | CCD ---
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 PRN 11/05/19 21 023 Inactive E11.42 lisinopril 30 mg tablet RxNorm: 412497 Take 1 Tablet(s) Oral QD 10/30/19 021 Inactive lisinopril 20 mg tablet RxNorm: 637778 Take 1 Tablet(s) Oral QD 10/23/19 21 021 Inactive lisinopril 20 mg tablet RxNorm: 268277 Take 1 Tablet(s) Oral QD 10/23/19 21 021 Inactive lisinopril 10 mg tablet RxNorm: 610862 Take 1 Tablet(s) Oral QD 10/02/19 21 021 Inactive icosapent ethyl 1 gram capsule RxNorm: 3620622 Take 2 Capsule(s) (2 gm) Oral BID with meals 09/12/19 21 024 Inactive Okay to dispense one 2gm tab if you have that available. icosapent ethyl 1 gram capsule RxNorm: 4907147 Take 2 Capsule(s) Oral BID 09/12/19 21 021 Inactive Okay to dispense one 2gm tab if you have that available. amlodipine 10 mg tablet RxNorm: 297018 Take 1 Tablet(s) Oral QD 09/04/19 022 Inactive aspirin 81 mg tablet,delayed release RxNorm: 715293 Take 1 Tablet(s) Oral QD 09/04/19 21 021 Inactive Levemir FlexTouch U-100 Insulin 100 unit/mL (3 mL) subcutaneous pen RxNorm: 684361 Inject 150 Unit(s) Subcutaneous BID 09/04/19 022 Inactive venlafaxine ER 150 mg tablet,extended release 24 hr RxNorm: 919436 Take 1 Tablet(s) Oral QD 09/04/19 21 021 Inactive clotrimazole-betame thasone 1 %-0.05 % topical cream RxNorm: 187256 Apply to rash on red area on left abdomen/chest Topical BID 08/10/19 21 Inactive amlodipine 5 mg tablet RxNorm: 521799 Take 1 Tablet(s) Oral QD 07/31/19 21 021 Inactive cephalexin 500 mg tablet RxNorm: 522415 Take 1 Tablet(s) Oral BID BID - Twice Daily 07/31/19 21 021 Inactive Start 08/01/20 pantoprazole 40 mg tablet,delayed release RxNorm: 044043 Take 1 Tablet(s) Oral QAM every morning 07/08/19 022 Inactive senna 8.6 mg tablet RxNorm: 671657 Take 1 Tablet(s) Oral QD 07/08/19 21 022 Inactive carbamazepine 200 mg tablet RxNorm: 578910 Take 1 Tablet(s) Oral BID 07/08/19 022 Inactive clopidogrel 75 mg tablet RxNorm: 576779 Take 1 Tablet(s) Oral QD 07/08/19 021 Inactive Blood Glucose Test strips RxNorm: Use 1 Test Strip QID at PRN 07/08/19 21 Inactive E11.42 Novolog Flexpen U-100 Insulin aspart 100 unit/mL (3 mL) subcutaneous RxNorm: 8079495 Administer per sliding scale Milliliter(s) Subcutaneous TID 151-200: 10 u; 201-250: 20 u; 251-300: 30 u; 301-350: 40 u; 351-400: 50 u. 07/08/19 21 022 Inactive lisinopril 5 mg tablet RxNorm: 939112 Take 1 Tablet(s) Oral QD 07/08/19 021 Inactive Novolog Flexpen U-100 Insulin aspart 100 unit/mL (3 mL) subcutaneous RxNorm: 1061599 Inject 85 Unit(s) Subcutaneous TID 07/08/19 022 Inactive pravastatin 80 mg tablet RxNorm: 137940 Take 1 Tablet(s) Oral QHS every night at bedtime 07/08/19 023 Inactive clotrimazole 1 % topical cream RxNorm: 804388 Apply to bilateral groin areas Topical BID 07/08/19 022 Inactive metoprolol succinate ER 200 mg tablet,extended release 24 hr RxNorm: 879084 Take 1 Tablet(s) Oral QD 07/08/19 Inactive Vitamin D3 25 mcg (1,000 unit) tablet RxNorm: 584712 Take 1 Tablet(s) Oral QD 07/08/19 021 Inactive isosorbide dinitrate 30 mg tablet RxNorm: 455008 Take 1 Tablet(s) Oral QD 07/08/19 21 021 Inactive Levemir FlexTouch U-100 Insulin 100 unit/mL (3 mL) subcutaneous pen RxNorm: 081623 Inject 140 Unit(s) Subcutaneous BID 07/08/19 021 Inactive torsemide 20 mg tablet RxNorm: 861807 Take 1 Tablet(s) Oral QD 07/08/19 21 023 Inactive venlafaxine 75 mg tablet RxNorm: 729111 Take 1 Tablet(s) Oral QD 07/08/19 21 021 Inactive acetaminophen 500 mg tablet RxNorm: 084466 Take 1 Tablet(s) Oral TID as needed for headache 06/18/19 21 021 Inactive acetaminophen 500 mg tablet RxNorm: 470299 Take 1 Tablet(s) Oral TID as needed for headache 06/18/19 21 021 Inactive Lyrica 100 mg capsule RxNorm: 854639 Take 1 Capsule(s) Oral QHS every night at bedtime 06/11/19 21 021 Inactive Lyrica 50 mg capsule RxNorm: 883127 Take 1 Capsule(s) Oral QAM every morning 06/10/19 21 021 Inactive hydrocortisone 2.5 % topical cream RxNorm: 249696 Apply to bilateral groin creases Topical BID 05/15/20 20 021 Inactive clotrimazole 1 % topical cream RxNorm: 110741 Apply to bilateral groin areas Topical BID 05/15/20 20 021 Inactive Lyrica 50 mg capsule RxNorm: 205973 Take 1 Capsule(s) Oral QAM every morning 05/14/20 20 020 Inactive Lyrica 100 mg capsule RxNorm: 872909 Take 1 Capsule(s) Oral QHS every night [...] Inactive Nystop 100,000 unit/gram topical powder RxNorm: 575292 Apply to abd folds, under breasts and L side of groin Topical BID x 14 days, then BID PRN 04/08/20 20 Inactive dx: yeast dermatitis Lyrica 100 mg capsule RxNorm: 087594 Take 1 Capsule(s) Oral QHS every night at bedtime 03/13/20 20 Inactive Lyrica 50 mg capsule RxNorm: 544783 Take 1 Capsule(s) Oral QAM every morning 03/13/20 20 Inactive ketoconazole 2 % shampoo RxNorm: 501576 Apply Topical two times a week with showers 03/11/20 20 Inactive cholecalciferol (vitamin D3) 50 mcg (2,000 unit) tablet RxNorm: 268072 Take 1 Tablet(s) Oral QD 03/11/20 20 021 Inactive Zetia 10 mg tablet RxNorm: 631808 Take 1 Tablet(s) Oral QD 03/07/20 20 021 Inactive Zetia 10 mg tablet RxNorm: 506511 Take 1 Tablet(s) Oral QD 03/07/20 20 Inactive Lyrica 50 mg capsule RxNorm: 223851 Take 1 Capsule(s) Oral QAM every morning 02/15/20 20 Inactive Lyrica 100 mg capsule RxNorm: 623901 Take 1 Capsule(s) Oral QHS every night at bedtime 02/15/20 20 Inactive Lyrica 100 mg capsule RxNorm: 905428 Take 1 Capsule(s) Oral QHS every night at bedtime 02/15/20 20 Inactive Lyrica 50 mg capsule RxNorm: 928626 Take 1 Capsule(s) Oral QAM every morning 02/15/20 20 Inactive metoprolol succinate ER 200 mg tablet,extended release 24 hr RxNorm: 839977 Take 1 Tablet(s) Oral QD 03/28/20 23 Active loperamide 2 mg capsule RxNorm: 040485 Take 1 Capsule(s) Oral QID as needed 06/12/19 22 Active hydralazine 50 mg tablet RxNorm: 523897 Take 1 Tablet(s) Oral QID 08/12/19 23 Active venlafaxine ER 75 mg capsule,extended release 24 hr RxNorm: 547108 Take 3 Capsule(s) Oral QD 06/12/19 22 023 Inactive polyethylene glycol 3350 17 gram/dose oral powder RxNorm: 763781 Take 17=1 capful Gram(s) Oral BID as needed mix with 4-8oz of liquid 06/12/19 22 024 Inactive icosapent ethyl 1 gram capsule RxNorm: 5684378 Take 2 Capsule(s) (2 gm) Oral BID with meals 10/07/19 23 023 Inactive Okay to dispense one 2gm tab if you have that available. Levemir FlexTouch U-100 Insulin 100 unit/mL (3 mL) subcutaneous pen RxNorm: 833327 Inject 80 Unit(s) Subcutaneous BID 07/14/19 23 023 Inactive Novolog Flexpen U-100 Insulin aspart 100 unit/mL (3 mL) subcutaneous RxNorm: 3851566 Insert 30 Unit(s) Subcutaneous TID with meals 10/08/19 22 022 Inactive Medication Administered No Medication Administered data Reason For Visit No Reason For Visit data Plan of Care Planned Activity Notes Codes Status Date Patient Education: Patient Medication Summary Completed 10/26/2023 Care Plan: BMP (Basic Metabo lic Panel) (8) Ordered 10/26/2023 Appointment: Sandra Clark WPtel: [address] [facility] [address] [id number] Telehealth Psych Follow Up 12/09 Appointment: Tapan Shirley WPtel: [address] [phone] TCM 10/26/2022 Referral: [facility] WPtel: [address], [address] Referral Records Received 09/21/2022 Appointment: Tapan Shirley WPtel: [address] [facility] [address] [id number] [place] F/U 08/11/2022 Appointment: Tapan Shirley WPtel: [address] [facility] [address] [id number] [place] F/U 07/14/2022 Appointment: Tapan Shirley WPtel: [address] [facility] [address] [id number] [place] F/U 02/10/2022 Referral: [facility] WPtel: [address] [id number] Referral Completed 05/28/2021 Referral: General Cardiology Referral [...] [facility] to have closer nursing attention.??Sister Jyotsna involved in his care cell# [phone]??Guardian: Giulia (tapan met in person 09/01/21), now has Lexii (same group as giulia)Lab Schedule: /September*September (CBC with diff, CMP, A1c) (Novemebr: CBC, CMP, A1c, Lipids, VitD) 10/08/2023
--- OUTSIDE RECORDS SUMMARY | 2023-11-03 10:30 | XMS_ITS | Clinical Summary ---
Author Organization [facility] Address [address] [place] [address] Phone Care Team Providers Care Ergonomics Technician Name Role Phone Mellisa Shirley PA-C Primary Care Provider [phone] Allergies Active Allergy Reactions Criticality Noted Date Comments Lisinopril 01/29/2012 Other reaction(s): Hyperkalemia Metformin 12/23/2015 Other reaction(s): Chest Pain Back pain, arm pain Medications Medication Sig Dispensed Refills Start Date End Date Status polyethylene glycol (GLYCOLAX) 17 GM/SCOOP powder Take by mouth Active insulin aspart (NovoLOG) 100 UNIT/ML injection Inject 30 Units under the skin in the morning and 30 Units at noon and 30 Units in the evening. 05/29/2021 Active insulin detemir (LEVEMIR) 100 UNIT/ML injection Inject 80 Units under the skin in the morning and 80 Units in the evening. 05/26/2021 Active cholecalciferol (VITAMIN D-3) 1.25 MG (78629 UT) capsule Take 1,250 mcg by mouth Active acetaminophen (TYLENOL) 500 MG tablet Take 500 mg by mouth Active albuterol (PROVENTIL) 2 MG tablet Take 2 mg by mouth in the morning and 2 mg at noon and 2 mg in the evening. Active amLODIPine (NORVASC) 10 MG tablet Take 10 mg by mouth every morning Active apixaban (ELIQUIS) 5 MG tablet Take 5 mg by mouth in the morning and 5 mg in the evening. Active aspirin (ST LM) 81 MG EC tablet Take 81 mg by mouth every morning Active carvedilol (COREG) 25 MG tablet Take 50 mg by mouth in the morning and 50 mg in the evening. 05/26/2022 Active carBAMazepine (TEGretol) 200 MG tablet Take 200 mg by mouth in the morning and 200 mg in the evening. Active ezetimibe (ZETIA) 10 MG tablet Take 10 mg by mouth in the morning. Active hydrALAZINE 50 MG tablet Take 50 mg by mouth in the morning and 50 mg at noon and 50 mg in the evening and 50 mg before bedtime. Active Icosapent Ethyl 1 g capsule Take 2 capsules by mouth twice a day Active isosorbide mononitrate (IMDUR) 30 MG 24 hr tablet Take 30 mg by mouth in the morning. Active lisinopril 40 MG tablet Take 40 mg by mouth in the morning. Active pregabalin (LYRICA) 100 MG capsule Take 100 mg by mouth at bed time 06/03/2021 Active pregabalin (LYRICA) 50 MG capsule Take 50 mg by mouth every morning 06/03/2021 Active pravastatin (PRAVACHOL) 80 MG tablet Take 80 mg by mouth at bed time Active pantoprazole (PROTONIX) 40 MG EC tablet Take 40 mg by mouth every morning Active venlafaxine XR (EFFEXOR-XR) 75 MG 24 hr capsule Take 225 mg by mouth in the morning. Active torsemide (DEMADEX) 20 MG tablet Take 20 mg by mouth in the morning. Active senna (SENOKOT) 8.6 MG tablet Take 1 tablet by mouth in the morning. Active loperamide (IMODIUM) 2 MG capsule Take 2 mg by mouth Active Active Problems Problem Noted Date Diagnosed Date Chronic kidney disease, stage 2 (mild) 3 Proteinuria 09/21/2022 Essential (primary) hypertension 09/21/2022 Type 2 diabetes mellitus 05/26/2022 Morbid obesity 05/26/2022 Cellulitis of abdominal wall 05/17/2021 Sepsis 05/17/2021 Epilepsy 03/01/2013 Family History Medical History Relation Comments No Known Problems Brother No Known Problems Father No Known Problems Sister Relation Status Comments Brother Father Mother Alive Sister Social History Tobacco Use Types Packs/Day Years Used Date Smoking Tobacco: Never Smokeless Tobacco: Never Tobacco Cessation:Counseling Given: Not Answered Alcohol Use Standard Drinks/Week Comments Not Currently 0 (1 standard drink = 0.6 oz pur e alcohol) Sex and Gender Information Value Date Recorded Sex Assigned at Not on file Gender Identity Not on file Sexual Orientation Not on file Last Filed Vital Signs Vital Sign Reading Time Taken Comments Blood Pressure 136/74 09/21/2022 2:37 PM CDT Pulse - - Temperature - - Respiratory Rate - - Oxygen Saturation - - Inhaled Oxygen Concentration - - Weight 180 kg (396 lb) 09/21/2022 2:37 PM CDT un able to weigh Height - - Body Mass Index - - Plan of Treatment Health Maintenance Due Date Last Done Comments Pneumococcal Vaccine: Pediat rics (0 to 5 Years) and At-Risk Patients (6 to 64 Years) (1 of 2 - PCV) 09/13/1966 Colorectal Cancer Screening: Annual FOBT 09/13/2008 Colorectal Cancer Screening: Colonoscopy 09/13/2008 Colorectal Cancer Screening: Sigmoidoscopy 09/13/2008 Diabetes: Hemoglobin A1C 08/31/2022 Diabetes: Ophthalmology Exam 08/31/2022 Diabetes: Pedal Pulse Checked 08/31/2022 Diabetes: Sensory Foot Exam 08/31/2022 Diabetes: Visual Foot Exam 08/31/2022 Influenza Vaccine (Season Ended) 2024 05/29/19 22 Hepatitis B Vaccine Aged Out No longe r eligible based on patient's age to complete this topic Care Teams Ergonomics Technician Relationship Specialty Start Date End Date Mellisa Shirley PA-C PCP - General Physician Meat Counter Clerk 08/31/22
--- OUTSIDE RECORDS SUMMARY | 2023-11-03 10:30 | XMS_ITS | Clinical Summary ---
Author Organization [place] Address [address] [place] [address] Care Team Providers Care [employer] Worker Name Role Phone Services, [facility] Physician Primary Care Provi sadia Prince Tobar MD Unavailable Prince Tobar MD Unavailable Allergies Active Allergy Reactions Criticality Noted Date Comments Lisinopril 01/29/2012 Other reaction(s): Hyperkalemia Metformin 12/23/2015 Other reaction(s): Chest Pain Back pain, arm pain Medications Medication Sig Dispensed Refills Start Date End Date Status pantoprazole (PROTONIX) 40 MG EC tablet Take 40 mg by mouth every morning Active aspirin 81 MG EC tablet Take 81 mg by mouth every morning Active sennosides (SENOKOT) 8.6 MG tablet Take 1 tablet by mouth daily Active torsemide (DEMADEX) 20 MG tablet Take 20 mg by mouth 2 times daily Active pravastatin (PRAVACHOL) 80 MG tablet Take 80 mg by mouth At Bedtime Active carBAMazepine (TEGRETOL) 200 MG tablet Take 200 mg by mouth 2 times daily Active clotrimazole (LOTRIMIN) 1 % external cream Apply topically 2 times daily Apply topically to feet and in between toes, groin, periarea, and abdomen areas 2 times daily. Active amLODIPine (NORVASC) 10 MG tablet Take 10 mg by mouth every morning Active Icosapent Ethyl 1 g CAPS Take 2 capsules by mouth 2 times daily (with meals) Active apixaban ANTICOAGULANT (ELIQUIS) 5 MG tablet Take 5 mg by mouth 2 times daily Active ezetimibe (ZETIA) 10 MG tablet Take 10 mg by mouth daily Active cholecalciferol (VITAMIN D3) 1250 mcg (17579 units) capsule Take 1,250 mcg by mouth every 7 days on Wednesdays. Active venlafaxine (EFFEXOR-XR) 75 MG 24 hr capsule Take 225 mg by mouth daily Active hydrALAZINE (APRESOLINE) 50 MG tablet Take 50 mg by mouth 4 times daily Active polyethylene glycol (MIRALAX) 17 GM/Dose powder Take 17 g by mouth daily Active nystatin (MYCOSTATIN) 561616 UNIT/GM external powder Apply topically 2 times daily as needed to abdominal folds under breasts and left side of groin. Active acetaminophen (TYLENOL) 500 MG tablet Take 500 mg by mouth 3 times daily Active ketoconazole (NIZORAL) 2 % external shampoo Apply topically every 3 days Apply topically to affected areas topically with showers Active loperamide (IMODIUM) 2 MG capsule Take 2 mg by mouth 4 times daily as needed for diarrhea Active diphenhydrAMINE (BENADRYL) 50 MG capsule Take 50 mg by mouth every 6 hours as needed for itching or allergies Active ARIPiprazole (ABILIFY) 15 MG tablet Take 7.5 mg by mouth daily Active carvedilol (COREG) 25 MG tablet Take 25 mg by mouth daily Active chlorthalidone (HYGROTON) 25 MG tablet Take 25 mg by mouth daily Active fluconazole (DIFLUCAN) 150 MG tablet Take 150 mg by mouth twice a week on Tuesdays and Fridays Active insulin reg HIGH CONC (HUMULIN R U-500 HIGH CONC) 500 Units/mL injection Inject 100 Units Subcutaneous 3 times daily at AM, midday, PM Active insulin detemir (LEVEMIR PEN) 100 UNIT/ML pen Inject 30 Units Subcutaneous 2 times daily 9AM and 9PM Active semaglutide (OZEMPIC, 0.25 OR 0.5 MG/DOSE,) 2 MG/3ML pen Inject 0.5 mg Subcutaneous every 7 days on . Active pregabalin (LYRICA) 100 MG capsule Take 100 mg by mouth every morning Active pregabalin (LYRICA) 150 MG capsule Take 150 mg by mouth every evening Active potassium chloride ER (K-TAB) 20 MEQ CR tablet Take 20 mEq by mouth 2 times daily Active albuterol (PROAIR HFA/PROVENTIL HFA/VENTOLIN HFA) 108 (90 Base) MCG/ACT inhaler Inhale 2 puffs into the lungs every 4 hours as needed for shortness of breath, wheezing or cough Active metoprolol succinate ER (TOPROL XL) 200 MG 24 hr tablet Take 200 mg by mouth daily Active isosorbide mononitrate (IMDUR) 60 MG 24 hr tabletIndications:Ch est pain, unspecified type Take 1 tablet (60 mg) by mouth daily 30 tablet 1 12/18/2022 Active Active Problems Problem Noted Date Diagnosed Date Elevated troponin 12/16/2022 Chest pain, unspecified type 12/16/2022 Diabetes mellitus, type 2 05/26/2022 Morbid obesity 05/26/2022 Abdominal wall cellulitis 05/17/2021 Sepsis, due to unspecified o rganism, unspecified whether acute organ dysfunction present 05/17/2021 Persistent headaches 03/01/2013 Epilepsy 03/01/2013 Immunizations Name Administration Dates Next Due COVID-19 MONOVALENT 12+ (Pfizer) 06/25/2020,05/17 [id number] Novel Flu 05/07/2009 Hepatitis B, Adult 02/16/2014,10/12/2013, 013 Influenza (H1N1) 05/07/2009 Influenza (IIV3) PF 05/07/2020, 3,02/08/2012,2008,05/18/2007 Influenza Vaccine 18-64 (Flublok) 05/29/2021 Influenza Vaccine >6 months,quad, PF ,02/13/2019,02/21/2018,2016,03/02/2016,02/21/2015,02/16/2014 Influenza Vaccine, 6+MO IM (QUADRIVALENT W/PRESERVATIVES) 03/03/2016 Pneumococcal 23 valent 01/08/2005 TDAP (Adacel,Boostrix) 02/12/2022,05/07/2009 Zoster recombinant adjuvante d (SHINGRIX) 03/24/2022,11/04/2021 Social History Tobacco Use Types Packs/Day Years Used Date Smoking Tobacco: Never Smokeless Tobacco: Never Tobacco Cessation:Counseling Given: Not Answered Alcohol Use Standard Drinks/Week Comments Not Currently 0 (1 standard drink = 0.6 oz pur e alcohol) Adolescent Education Answer Date Record ed Getting School Help Needed Not on file 02/13 Sex and Gender Information Value Date Recorded Sex Assigned at Not on file Gender Identity Not on file Sexual Orientation Choose not to disclose 2021 8:14 AM [employer] WORKER Last Filed Vital Signs Vital Sign Reading Time Taken Comments Blood Pressure 140/65 02/22/2023 10:50 PM CDT Pulse 68 02/22/2023 10:55 PM CDT Temperature 37 ??C (98.6 ??F) 02/22/2023 3:34 PM CDT Respiratory Rate 18 02/22/2023 10:55 PM CDT Oxygen Saturation 94% 02/22/2023 10:55 PM CDT Inhaled Oxygen Concentration - - Weight 185 kg (407 lb 13.6 oz) 02/13/2023 10:14 PM CDT Height 167.6 cm (5' 6) 02/22/2023 3:34 PM CDT Body Mass Index 65.83 12/16/2022 4:59 PM CDT Plan of Treatment Health Maintenance Due Date Last Done Comments ANNUAL REVIEW OF HM ORDERS 1959 CT COLONOGRAPHY 1959 DIABETIC FOOT EXAM 1959 EYE EXAM 1959 FIT 1959 FLEX SIG 1959 LIPID 1959 MICROALBUMIN 1959 sDNA (Cologuard) 1959 COLONOSCOPY 09/13/1969 COLORECTAL CANCER SCREENING 09/13/1969 HIV SCREENING 09/13/1974 HEPATITIS C SCREENING 09/13/1977 Pneumococcal Vaccine: Pediatrics (0 to 5 Years) and At-Risk Patients (6 to 64 Years) (2 of 2 - PCV) 01/08/2006 01/08/2005 RSV VACCINE ( & 60+) (1 - 1-dose 60+ series) 2019 COVID-19 Vaccine ( - 2022- season) 2023 04/03/2022, 06/18/2021, 06/25/2020, Additional history exists PHQ-2 (once per calendar year) 2023 A1C 01/15/2024 10/15/2023, 08/0 06/2022, 05/17/2021 INFLUENZA VACCINE (Season Ended) 2024 04/03/2022, 05/29/2021, 05/07/2020, Additional history exists MEDICARE ANNUAL WELLNESS VISIT 02/03/2024 02/02/2023, 11/11/2021, 09/03/2020 BMP 10/14/2024 10/15/2023, 10/0 01/2023, 02/13/2023, Additional history exists ADVANCE CARE PLANNING 06/02/2026 06/02/2021 DTAP/TDAP/TD IMMUNIZATION (3 - Td or Tdap) 02/13/2032 02/12/2022, 05/07/2009 ZOSTER IMMUNIZATION Completed 03/24/2022, HPV IMMUNIZATION Aged Out No longer e ligible based on patient's age to complete this topic IPV IMMUNIZATION Aged Out No longer e ligible based on patient's age to complete this topic MENINGITIS IMMUNIZATION Aged Out No l onger eligible based on patient's age to complete this topic RSV MONOCLONAL ANTIBODY Aged Out No l onger eligible based on patient's age to complete this topic Procedures Procedure Name Priority Date/Time Associated Diagnosis Comments CBC WITH PLATELETS & DIFFERENTIAL Routine 10/15/2023 3:13 PM CDT Hypertensive heart disease without heart failure Atherosclerotic heart disease of [place] coronary artery without angina pectoris Body mass index (BMI) 60.0-69.9, adult (H) Chronic kidney disease, unspecified COMPREHENSIVE METABOLIC PANEL Routine 10/15/2023 3:13 PM CDT Hypertensive heart disease without heart failure Atherosclerotic heart disease of [place] coronary artery without angina pectoris Body mass index (BMI) 60.0-69.9, adult (H) Chronic kidney disease, unspecified CBC WITH PLATELETS AND DIFFERENTIAL Routine 10/15/2023 3:13 PM CDT Hypertensive heart disease without heart failure Atherosclerotic heart disease of [place] coronary artery without angina pectoris Body mass index (BMI) 60.0-69.9, adult (H) Chronic kidney disease, unspecified VITAMIN D DEFICIENCY SCREENING Routine 10/15/2023 3:13 PM CDT Hypertensive heart disease without heart failure Atherosclerotic heart disease of [place] coronary artery without angina pectoris Body mass index (BMI) 60.0-69.9, adult (H) Chronic kidney disease, unspecified HEMOGLOBIN A1C Routine 10/15/2023 3:13 PM CDT Hypertensive heart disease without heart failure Atherosclerotic heart disease of [place] coronary artery without angina pectoris Body mass index (BMI) 60.0-69.9, adult (H) Chronic kidney disease, unspecified from Last 3 Months Results * (ABNORMAL) CBC with platelets and differential (10/15/2023 3:13 PM CDT) [facility] [address] WBC Count 5.5 4.0 - 11.0 10e3/uL 10/15/2023 4:39 PM CDT [facility] RBC Count 4.40 4.40 - 5.90 10e6/uL 10/15/2023 4:39 PM CDT [facility] Hemoglobin 13.0(L) 13.3 - 17.7 g/dL 10/15/2023 4:39 PM CDT [facility] Hematocrit 36.8(L) 40.0 - 53.0 % 10/15/2023 4:39 PM CDT [facility] MCV 84 78 - 100 fL 10/15/2023 4:39 PM CDT [facility] MCH 29.5 26.5 - 33.0 pg 10/15/2023 4:39 PM CDT [facility] MCHC 35.3 31.5 - 36.5 g/dL 10/15/2023 4:39 PM CDT [facility] RDW 14.2 10.0 - 15.0 % 10/15/2023 4:39 PM CDT [facility] Platelet Count 154 150 - 450 10e3/uL 10/15/2023 4:39 PM CDT [facility] % Neutrophils 41 % 10/15/2023 4:39 PM CDT [facility] % Lymphocytes 47 % 10/15/2023 4:39 PM CDT [facility] % Monocytes 7 % 10/15/2023 4:39 PM CDT [facility] % Eosinophils 4 % 10/15/2023 4:39 PM CDT [facility] % Basophils 1 % 10/15/2023 4:39 PM CDT [facility] % Immature Granulocytes 0 % 10/15/2023 4:39 PM CDT [facility] NRBCs per 100 WBC 0 <1 /100 024 4:39 PM CDT [facility] Absolute Neutrophils 2.2 1.6 - 8.3 10e3/uL 10/15/2023 4:39 PM CDT [facility] Absolute Lymphocytes 2.6 0.8 - 5.3 10e3/uL 10/15/2023 4:39 PM CDT [facility] Absolute Monocytes 0.4 0.0 - 1.3 10e3/uL 10/15/2023 4:39 PM CDT [facility] Absolute Eosinophils 0.2 0.0 - 0.7 10e3/uL 10/15/2023 4:39 PM CDT [facility] Absolute Basophils 0.0 0.0 - 0.2 10e3/uL 10/15/2023 4:39 PM CDT [facility] Absolute Immature Granulocytes 0.0 <=0.4 10e3/uL 10/15/2023 4:39 PM CDT [facility] Absolute NRBCs 0.0 10e3/uL 10/15/2023 4:39 PM CDT [facility] Blood BLOOD SPECIMEN / Unknown Client Draw / Unknown 10/15/2023 3:13 PM CDT 10/15/2023 4:25 PM CDT [facility] - BLOOD ORDERABL [facility] [address] [facility] (1st floor, no room number) [place] [address], [facility] * Vitamin D Deficiency (10/15/2023 3:13 PM CDT) [facility] [address] Vitamin D, Total (25-Hydroxy) 32 20 - 50 ng/mL 10/17/2023 4:24 PM CDT [facility] Comment:optimum levels Blood BLOOD SPECIMEN / Unknown Client Draw / Unknown 10/15/2023 3:13 PM CDT 10/15/2023 4:25 PM CDT Narrative [facility] - 10/17/2023 4:24 PM CDT Season, race, dietary intake, and treatment affect the concentration of 57-gxmhmna-Zctpzau D. Values may decrease during winter months and increase during summer months. Vitamin D determination is routinely performed by an immunoassay specific for 25 hydroxyvitamin D3. ??If an individual is on vitamin D2(ergocalciferol) supplementation, please specify 25 OH vitamin D2 and D3 level determination by LCMSMS test VITD23. [facility] - BLOOD ORDERABL ES [facility] [address] [facility] [place] [address] * (ABNORMAL) Hemoglobin A1c (10/15/2023 3:13 PM CDT) Hemoglobin A1C 10.8(H) <5.7 % 10/15/2023 4:57 PM CDT [facility] Comment: Normal <5.7% Prediabetes 5.7-6.4% ?? Diabetes 6.5% or higher Note: Adopted from ADA consensus guidelines. Blood BLOOD SPECIMEN / Unknown Client Draw / Unknown 10/15/2023 3:13 PM CDT 10/15/2023 4:25 PM CDT [facility] - BLOOD ORDERABL ES [facility] [address] [facility] (1st floor, no room number) [place] [address] * (ABNORMAL) Comprehensive metabolic panel (10/15/2023 3:13 PM CDT) Sodium 139 135 - 145 mmol/L 10/15/2023 5:09 PM CDT [facility] Comment:Reference intervals for this test were updated on 02/09/2023 to more accurately reflect our healthy population. There may be differences in the flagging of prior results with similar values performed with this method. Interpretation of those prior results can be made in the context of the updated reference intervals. Potassium 2.6(LL) 3.4 - 5.3 mmol/L 10/15/2023 5:09 PM CDT [facility] Carbon Dioxide (CO2) 33(H) 22 - 29 mmol/L 10/15/2023 5:09 PM CDT [facility] Anion Gap 15 7 - 15 mmol/L 10/15/2023 5:09 PM CDT [facility] Urea Nitrogen 30.0(H) 8.0 - 23.0 mg/dL 10/15/2023 5:09 PM CDT [facility] Creatinine 1.45(H) 0.67 - 1.17 mg/dL 10/15/2023 5:09 PM CDT [facility] GFR Estimate 54(L) >60 mL/min/1. 73m2 10/15/2023 5:09 PM CDT [facility] Calcium 8.6(L) 8.8 - 10.2 mg/dL 10/15/2023 5:09 PM CDT [facility] Chloride 91(L) 98 - 107 mmol/L 10/15/2023 5:09 PM CDT [facility] Glucose 513(HH) 70 - 99 mg/dL 10/15/2023 5:09 PM CDT [facility] Alkaline Phosphatase 112 40 - 150 U/L 10/15/2023 5:09 PM CDT [facility] AST 28 0 - 45 U/L 10/15/2023 5:09 PM CDT [facility] Comment:Reference intervals for this test were updated on 10/26/2022 to more accurately reflect our healthy population. There may be differences in the flagging of prior results with similar values performed with this method. Interpretation of those prior results can be made in the context of the updated reference intervals. ALT 25 0 - 70 U/L 10/15/2023 5:09 PM CDT [facility] Comment:Reference intervals for this test were updated on 10/26/2022 to more accurately reflect our healthy population. There may be differences in the flagging of prior results with similar values performed with this method. Interpretation of those prior results can be made in the context of the updated reference intervals. Protein Total 6.1(L) 6.4 - 8.3 g/dL 10/15/2023 5:09 PM CDT [facility] Albumin 3.7 3.5 - 5.2 g/dL 10/15/2023 5:09 PM CDT [facility] Bilirubin Total 0.2 <=1.2 mg/dL 10/15/2023 5:09 PM CDT [facility] Blood BLOOD SPECIMEN / Unknown Client Draw / Unknown 10/15/2023 3:13 PM CDT 10/15/2023 4:25 PM CDT [facility] - BLOOD ORDERABL ES [facility] [address] Lab (1st floor, no room number) [place] [address], [facility] from Last 3 Months Advance Directives For more information, please contact: [phone] Documents on File Type Date 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 Advance Directives and Living Will 06/02/2021 [employer] (GUARDIAN) Legal Guardianship 10-18-2013 * Full Code (Latest Code Status on File) Date Activated Date Inactivated Comments 12/16/2022 2:40 PM 12/18/2022 7:20 PM All basic and advanced life-sustaining interventions are performed as appropriate Question Answer Comments Code status determined by: Discussion with yissel nt/ legal decision maker * Full Code Date Activated Date Inactivated Comments 05/18/2021 3:06 AM 06/03/2021 6:27 PM All basic and advanced life-sustaining interventions are performed as appropriate Question Answer Comments Code status determined by: Discussion with yissel nt/ legal decision maker Care Teams [employer] Worker Relationship Specialty Start Date End Date Services, [facility] Physician [address] [place] [address], [facility] [address] [place], [place] [id number] PCP - General 05/22/21 Prince Tobar MD [address] [place] [address] Cardiovascular Disease 03/26/22 Prince Tobar MD [address] [place] [address] Assigned Heart and Vascular Provider 05/30/22
--- OUTSIDE RECORDS SUMMARY | 2023-11-03 10:30 | XMS_ITS | Clinical Summary ---
Author Organization [employer] [facility] Address [place], [place] [address] Care Team Providers Care Multi Operation Forming Machine Setter Name Role Phone Alan Lopez MD Unavailable [phone] Nishant Watson MD Unavailable Pcp, No Primary Care Provider Unavailabl e Allergies Active Allergy Reactions Criticality Noted Date Comments Lisinopril Hyperkalemia 01/29/2012 Metformin Chest Pain 12/23/2015 Back pain, arm pain Medications Medication Sig Dispensed Refills Start Date End Date Status clotrimazole (LOTRIMIN) 1 % creamIndications:Ti carey pedis of both feet Apply to feet in am daily and in evening as able 113 Tube 1 12/13/2015 Active polyethylene glycol (MIRALAX) 17 g powder for solutionIndications :Constipation Take 17 g by mouth once daily. 30 Packet 4 10/07/2016 Active acetaminophen (ACETAMINOPHEN PAIN RELIEF) 500 mg tabletIndications:D LUIS (diffuse idiopathic skeletal hyperostosis) Take 1 tablet by mouth every 6 hours if needed. Takes 1 at noon, 2 in evening and 1 at bedtime. Max acetaminophen dose: 4000mg in 24 hrs. 360 tablet 2 03/18/2017 Active sennosides (SENNA) 8.6 mg tabletIndications:C hronic constipation 1-2 tablets daily to maintain daily BM 180 tablet 2 10/06/2017 Active aspirin (ECOTRIN) 81 mg enteric coated tabletIndications:H ypercholesterolemia ,HTN (hypertension) Take 1 tablet by mouth once daily with a meal. 90 tablet 2 11/03/2017 Active Garlic tablet Take 1 tablet by mouth. 0 11/05/2017 Active medication order composerIndications :TASHI (obstructive sleep apnea) CPAP- set pressure at 17 cm/H2O New CPAP supplies: Humidifier Chamber x1, mask with cushion x1, Tubing (heated if desired) x1, Headgear x1, Disposable filters (reusable and disposable) X1; 1 unit 6 02/10/2018 Active CPAPIndications:TASHI (obstructive sleep apnea) CPAP machine for home use at pressure: 15 cm/h2O , Heated humidifier x 1, Humidifier chamber x 1, 1 unit 11 05/19/2018 Active nitroglycerin (NITROSTAT) 0.4 mg sublingual tabletIndications:C hest pain in adult Place 1 tablet under the tongue every 5 minutes if needed for Chest Pain. 1 Bottle 08/02/2018 Active Insulin Syringes, Disposable, 1 mLIndications:Other diabetic neurological complication associated with type 2 diabetes mellitus (HC) For administering insulin at home. E11.22 . Please give U-500 insulin syringes 1 box 3 08/24/2018 Active cetirizine (ZYRTEC) 10 mg tabletIndications:E nvironmental allergies Take 1 tablet by mouth once daily. 90 tablet 3 10/05/2018 Active insulin syringe-needle u-100 (BD INSULIN SYRINGE ULTRA-FINE) 1 mL 31 gauge x 5/16Indications:Ins ulin dependent diabetes mellitus FOR ADMINISTERING INSULIN AT HOME. 300 Each 3 11/02/2018 Active medication order composerIndications :Chronic edema Compression stockings, size large, full calf, level 20/30 mmhg 2 Package 11/03/2018 Active compr.stocking,knee ,long,large (COMP STOCKING,KNEE,LONG, LARGE)Indications:I nsulin dependent diabetes mellitus,Diabetic polyneuropathy associated with type 2 diabetes mellitus (HC),Chronic edema JOBST #[id number] LRG FULL CALF KNEE BLACK 20-30 COMPRESSION 2 Package 11/26/2018 Active lancets (TRUEPLUS LANCETS) 30 gauge miscIndications:Typ e 2 diabetes mellitus with stage 3 chronic kidney disease, with long-term current use of insulin (HC),Insulin-requir ing or dependent type II diabetes mellitus (HC) As directed. Dispense lancets covered by insurance. E11.9 IDDM type II - Test 4-5 times/day 500 Each 3 12/13/2018 Active metoprolol succinate SR (TOPROL XL) 200 mg Sustained-Release tabletIndications:H ypertension, unspecified type TAKE 1 TABLET BY MOUTH ONCE DAILY. 90 tablet 3 12/27/2018 Active pravastatin (PRAVACHOL) 80 mg tabletIndications:H igh triglycerides Take 1 tablet by mouth at bedtime. 90 tablet 3 03/13/2019 Active amLODIPine (NORVASC) 5 mg tablet Take 1 tablet by mouth once daily. 0 02/08/2020 Active carBAMazepine (TEGRETOL) 200 mg tabletIndications:C onvulsions, unspecified convulsion type (HC) Take 1 tablet by mouth 2 times daily. 360 tablet 3 02/08/2020 Active clopidogreL (PLAVIX) 75 mg tablet Take 1 tablet by mouth every morning. 0 02/08/2020 Active isosorbide mononitrate (IMDUR) 30 mg extended release tablet 24 HourIndications:CAD in [place] artery Take 1 tablet by mouth once daily. 02/08/2020 Active lisinopriL (PRINIVIL; ZESTRIL) 5 mg tablet Take 1 tablet by mouth once daily. 0 02/08/2020 Active pantoprazole (PROTONIX) 40 mg delayed-release tablet Take 1 tablet by mouth once daily. 0 02/08/2020 Active torsemide (DEMADEX) 20 mg tabletIndications:E sergio, unspecified type Take 1 tablet by mouth once daily. 720 tablet 3 02/08/2020 Active venlafaxine (EFFEXOR XR) 75 mg cp24 Extended-Release capsuleIndications: Depression, unspecified depression type,Hereditary and idiopathic peripheral neuropathy Take 1 capsule by mouth once daily. 02/08/2020 Active blood-glucose meterIndications:Di abetes mellitus type 2, uncontrolled, with complications by Not Applicable route. Dispense meter, test strips, lancets covered by pt ins. E11.9 IDDM type II - Test 4 times/day. Reason: High A1C 1 Device 02/08/2020 Active pregabalin (LYRICA) 50 mg capsuleIndications: Neuropathy 1 cap in the morning and two caps at bedtime 270 capsule 3 02/15/2020 Active insulin aspart U-100 (NOVOLOG FLEXPEN U-100 INSULIN) 100 unit/mL (3 mL) solution for injectionIndication s:Diabetes 1.5, managed as type 1 (HC) If blood sugars are between 151-200 : 95 units 201-250: 105 units 251-300: 115 units 301-350:125 units 351-400: 135 units 400+ call MD 0 04/01/2020 Active Insulin Safety [place], Disp, (NOVOFINE AUTOCOVER) 30 gauge x /3Indications:Cecelia betes 1.5, managed as type 2 (HC) For administering insulin at home. Pt uses 10 x diakly 1 box 3 05/29/2020 Active insulin aspart, U-100, (NovoLOG Flexpen U-100 Insulin) 100 unit/mL (3 mL) penIndications:Othe r diabetic neurological complication associated with type 2 diabetes mellitus (HC) 90.90.90 three times daily with meals +10>50>150 0 08/15/2020 Active insulin detemir U-100 (Levemir U-100 Insulin) 100 unit/mL injectionIndication s:Other diabetic neurological complication associated with type 2 diabetes mellitus (HC),Diabetes mellitus type 2, uncontrolled, with complications 150 units 2 times daily. 270 mL 11/06/2020 Active blood sugar diagnostic (Blood Glucose Test) stripIndications:Ot her diabetic neurological complication associated with type 2 diabetes mellitus (HC),Diabetes 1.5, managed as type 1 (HC) Dispense brand covered by pt ins. DX DM:E13.9 pt tests 4 x daily. 400 Each 3 03/27/2021 Active albuterol (PROVENTIL) 2 mg tablet Take 2 mg by mouth. Active albuterol HFA (PRO-AIR; VENTOLIN; PROVENTIL) 90 mcg/actuation inhaler 04/08/2022 Active albuterol HFA (PRO-AIR; VENTOLIN; PROVENTIL) 90 mcg/actuation inhaler Every 4 Hours as needed Active allopurinoL (ZYLOPRIM) 300 mg tablet Daily Active allopurinoL (ZYLOPRIM) 100 mg tablet Daily Active amoxicillin-clavula quan 875-125 mg tablet (AUGMENTIN) Twice Daily For 7 Days 07/23/2020 Active apixaban (ELIQUIS) tablet in a dose pack .as Direc 12/26/2020 Active Eliquis 5 mg tablet 06/26/2022 Activ e ARIPiprazole (ABILIFY) 15 mg tablet 06/27/2022 Active benzoyl peroxide 10% (BENZAC-W WASH) 10 % external wash 08/18/2021 Active capsaicin (ZOSTRIX) 0.025 % cream Three Times A Day as needed Active carvediloL (COREG) 25 mg tablet Take 50 mg by mouth. 05/26/2022 Active carvediloL (COREG) 25 mg tablet 06/27/2022 Active cephalexin (KEFLEX) 500 mg capsule Four Times Daily 05/17/2021 Acti ve cholecalciferol (VITAMIN D3) 1,000 unit tablet Take 1,000 units by mouth. Active diphenhydrAMINE (BENADRYL) 50 mg capsule Take 50 mg by mouth. Active Banophen 50 mg capsule 05/20/2022 Active ergocalciferol (VITAMIN D2; DRISDOL) 50,000 unit capsule 3 Times Weekly Active insulin NPH human isophane (HUMULIN N PEN SUBQ) Inject 85 units subcutaneous. Pt.got it this morning. Active ezetimibe-atorvasta tin 10-10 mg tab Daily 03/07/2022 Active hydrALAZINE (APRESOLINE TABLET) 50 mg tablet four times daily 03/07/2022 Active spironolactone (ALDACTONE) 50 mg tablet Twice A Day Active Active Problems Problem Noted Date Diagnosed Date CKD (chronic kidney disease) stage 4, GFR 15-29 ml/min 09/01/2018 Anemia in stage 4 chronic kidney disease 019 Depression 12/27/2017 Anemia in stage 3 chronic kidney disease 018 TASHI 10/26/2017 AHI-99 with severe hypoxemia 11/08 Chronic idiopathic gout of multiple sites 2015 DISH (diffuse idiopathic skeletal hyperostosis) 01/17/2015 CKD (chronic kidney disease) stage 3, GFR 30-59 ml/min 04/05/2014 Diabetic neuropathy 08/01/2013 Type 2 diabetes mellitus wit h stage 3 chronic kidney disease, with long-term current use of insulin 06/27/2013 Headache 04/17/2013 Overview: Has had brain MRI and temporal artery biopsies per patient. Is on amitriptyline. Previous to try higher dose gabapentin but caused significant edema. Currently on Topamax. See neurology consult from November 2013: May increase Topamax to max of 2 mg b.i.d. if needed. Consider melatonin. Edema 02/29/2012 ACP (advance care planning) 07/06/2011 Overview: 05/24/2012 Patient has identified Health Care Agent(s): Yes Add Health Care Agents: Yes Health Care Agent(s): Primary Health Care Agent: Brittany Suggs Relationship: sister Secondary Health Care Agent: Relationship: Phone: Conservator: Relationship: Phone: Guardian: Relationship: Phone: Patient has Advance Care Plan Documents (Health Care Directive, POLST): Yes Advance Care Plan Documents: Health Care Directive Patient has identified Specific Treatment Preferences: Yes Specific Treatment Preferences: a.) Code Status: DNR/ Do Not Attempt Resuscitation - Allow a Natural b.) Goals of Treatment: Limited Interventions and treat reversible conditions. Provide interventions aimed at treatment of new or reversible illness/injury or non-life threatening chronic conditions. Duration of invasive or uncomfortable interventions should generally be limited.- Trial of intubation for up to 60 days, stop if no improvement or return to current state. c.) Interventions and Treatments: Desire all medical interventions for up to 2 months if able to improve and return to current state of health. 04/26/2012 Pt scheduled for ACP session at [facility] at 10 am and no showed. RN Rest Room Maid, Juanita Yoo, notified and she will attempt to reschedule at patient's next clinic visit. Pt has no phone. Patient has identified Health Care Agent(s): Yes Add Health Care Agents: Yes Health Care Agent(s): Primary Health Care Agent: Brittany Suggs Relationship: Sister Secondary Health Care Agent: Relationship: Phone: Conservator: Relationship: Phone: Guardian: Relationship: Phone: Patient has Advance Care Plan Documents (Health Care Directive, POLST): No, referral made to Advance Care Plan Mud Temperer. Patient has identified Specific Treatment Preferences: No Sophia Méndez RN .................... 07/06/2011 2:30 PM] Specific limits to treatment preferences NOT identified: ASSUME FULL TREATMENT. Last Assessment & Plan: Advance Care Planning: Disease-specific Session Leonid Leahy is a [facility] patient. His PCP is Leandra Limon at [facility]. Advance care planning discussions were completed with Leonid. He identified his sister, Brittany Suggs, as his healthcare agent. Brittany was not present for ACP session. Understanding of Illness and Disease [place]: Leonid identifies his medical condition as what ain't I treated for, Diabetes- insulin dependent, checks BS 5x/daily; slight heart attack in 2009; hypertension: sleep apnea on CPAP; Kidney failure-retaining fluid in legs, abdomen and lungs, seeing Dr. Lopez for management; Seizures managed with meds; Neuropathy-feet and hands; Depression-chronic, has good days and bad days; describes his overall medical condition as progressive. He identifies the following symptoms of his medical condition as being the most bothersome: lack of energy, shortness of breath with activity, overwhelmed with managing all home tests, medications and just don't feel well. Goals of Care: Leonid currently hopes to maintain independence, control pain and symptoms, delay progression of, but not cure, the illness, have comfort cares and with dignity. Leonid prefers to remain home with services and is open to Home Care and/or Hospice when/if appropriate. Quality of Life: The following present and future experiences are most important for Leonid to live well: Daily visit to local [place] for a pop and to visit and catch up in the news with locals. Leonid obed with serious challenges in his life: Support of his sister, only a phone call away. Helps manage [facility] services. Leonid identifies the following fears and worries about his medical care: having uncontrolled pain or symptoms, I know its not going to get better. Treatment and Care Preferences: Past experiences in dealing with family and/or friends that have or been seriously ill include his father who this past January. I am my dad all over, of kidney failure, with Hospice services in his home. As a result of these experiences, Leonid expresses these health care preferences: Summary Leonid's Treatment Preferences: LOW SURVIVAL; HIGH TREATMENT BURDEN: If Leonid suffered a serious complication, such that he was facing a prolonged hospital stay, required ongoing medical interventions, and the chance of living through the complication was low (for example, only 5 out of 100 would live), Leonid would choose: to focus treatment on comfort and quality of life (Quality of life is more important than length of life to Leonid.) Limited trial of 2 months of all medical treatments to determine possibility of returning to previous state. If not improving, discontinue all treatments. HIGH SURVIVAL; LOW FUNCTIONAL STATUS: If Leonid had a serious complication and had a good chance of living through the complication but it was expected that he would never be able to walk or talk again and would require 24 hour nursing care, he would choose: to focus treatment on comfort and quality of life (Quality of life is more important than length of life to Leonid.) Limited trial of oral antibiotics only. HIGH SURVIVAL; LOW COGNITIVE STATUS: If Leonid had a serious complication and had a good chance of living through the complication but it was expected that he would never know who he was or who he was with and would require 24 hour nursing care, he would choose: to focus treatment on comfort and quality of life (Quality of life is more important than length of life to Leonid.) Limited trial of oral antibiotics only. CARDIO-PULMONARY RESUSCITATION (CPR): The facts, risks and benefits of CPR were discussed with Leonid. If he had a sudden event that caused his heart and breathing to stop, he: WOULD NOT want CPR attempted and instead would prefer that a natural occur. MECHANICAL VENTILATION: If Leonid had an episode where he was unable to breathe on his own, he would choose the following: attempt to use any appropriate non-invasive method to assist breathing, and limited trial up to 2 months, use mechanical ventilation. If not able to return to previous state, discontinue mechanical ventilation. Leonid has chosen his healthcare agent to: do what she thinks is best at the time, considering Leonid's wishes. Follow Up Plan: Leonid was encouraged to continue advance care planning discussions with his Designated Health Care Agent: Brittany Suggs and primary care provider. [employer] for [place] People booklet was sent to Leonid and his health care agent for review. Leonid requested all information be mailed to his sister and principal technical writer to place call to sister to explain process. Leonid identified the following concerns during his advance care planning session: needing assistance at home to ensure he is managing his medications and treatments to keep going as is and stabilizing. Is followed by [facility] for needed services. Questions identified for his primary care provider: none Documents addressed during this advance care planning session: Health Care Directive completed and scanned into medical record. Statement of Treatment Preferences for advanced illness completed and scanned into the medical record. Recommendations/Plan: Leonid to review Advance Care Plan with Leonid's healthcare agent. Tablet Repair will be contacting Leonid's [facility] to explain services rendered, Leonid would benefit from: Home Care and/or Hospice when / if appropriate. [facility] services involved, sister supports coordination of medical asistance. Care Management- currenlty enrolled in Medical Home. Care Navigation Help Desk- other needed resources. Care Navigation, Hospice Care and Home Care brochure(s) were given to Leonid and/or his healthcare agent. Advance Care Planning recommendations and Leonid's concerns and questions were cc? ed to his primary provider. Interviewer: Khadijah Mcneal RN 05/24/2012 Anemia, unspecified 04/06/2011 Unspecified hereditary and idiopathic peripheral neuropathy 03/02/2011 Overview: Confirmed on upper extremity EMG Essential hypertriglyceridemia 08/28/2010 Vitamin D deficiency 08/28/2010 Learning disability 08/28/2010 Overview: Spelling, special education in school Metabolic syndrome 03/17/2009 Morbid obesity with BMI of 60.0-69.9, adult 0 05/2008 Dysthymia 03/17/2009 Subjective tinnitus 11/09/2008 Sensorineural hearing loss, bilateral 11/09/2008 Insomnia, unspecified 09/11/2008 Unspecified sleep apnea 09/11/2008 Overview: Has CPAP does not use macchine regularily HTN (hypertension) Overview: Updated by system to replace inactive record Seizures Hypercholesterolemia Resolved Problems Problem Noted Date Diagnosed Date Resolved Date Type 2 diabetes mellitus wit h neurologic complication 03/29/2015 11/01/2015 CKD (chronic kidney disease) 09/26/2013 04/05/2014 CKD (chronic kidney disease) stage 3, GFR 30-59 ml/min 02/12/2012 03/17/2013 Medical Home 07/06/2011 10/30/2011 Overview: Sophia Méndez RN .................... 07/06/2011 2:27 PM Sophia Méndez RN RN [facility] [phone] Vitamin D deficiency 01/06/2011 011 Neuropathy 09/25/2010 06/28/2015 Major depressive disorder, r ecurrent episode, unspecified 03/26/2009 06/28/2015 Dysthymic disorder 02/01/2009 6 Overview: Per chart review as of 09/2013: previously on Fluoxetine, tried to augment with wellbutrin but caused itching and concern for increased seizure risk with higher doses do wellbutrin stopped. Then Buspar added. Fluoxetine switched to Lexapro. Patient not feel like Lexapro helping as of 09/2013 so will switch to Effexor and monitor. DIABETES 04/07/2002 03/29/2015 Overview: Recommended (pre-meal 80-130, 2 hr after eatting < 160, bedtime 100-140) Encounters Date Type Department Care Team Description 11/01/2023 Lab Requisition [address] [address] Harrison Munson DNP from Last 3 Months Immunizations Name Administration Dates Next Due Hepatitis B (Adult) 02/16/2014,10/12/2013,2012 Influenza A (H1N1), Inactiva abbe (Age >=3 Years) 05/07/2009 Influenza, IIV3 (Age >=3 years) 03/14/20 13,02/08/2012,03/15/2009,2007 Influenza, IIV4 02/13/2019, 8,02/17/2017,2015,02/21/2015,02/16/2014 Influenza, IIV4 (=>6mos) MDV 03/03/2016 Pneumococcal Poly,23-Valent (Pneumovax) 01/08/2005 Tdap 05/07/2009 Family History Medical History Relation Name Comments Unknown Brother 1 Unknown Brother 2 Unknown Brother 3 Unknown Father Good Health Mother Unknown Sister 1 Unknown Sister 2 Unknown Sister 3 Relation Name Status Comments Brother 1 Brother 2 Brother 3 Father Mother Sister 1 Sister 2 Sister 3 Social History Tobacco Use Types Packs/Day Years Used Date Smoking Tobacco: Never Smokeless Tobacco: Never Tobacco Cessation:Counseling Given: Not Answered Alcohol Use Standard Drinks/Week Comments No 0 (1 standard drink = 0.6 oz pur e alcohol) PHQ-2 Answer Date Recorded PHQ-2 Score 4 12/27/2018 Social Connections Answer Date Recorded Frequency of Communication with Friends and Fami ly Not on file 05/17/2021 Financial Resource Strain Answer Date R ecorded Difficulty of Paying Living Expenses Not on file 05/17/2021 Difficulty of Paying Living Expenses Not on file 05/17/2021 Sex and Gender Information Value Date Recorded Sex Assigned at Not on file Gender Identity Not on file Sexual Orientation Not on file Obstetrics History Last Filed Vital Signs Vital Sign Reading Time Taken Comments Blood Pressure 127/60 08/19/2022 2:23 PM CDT Pulse 67 08/19/2022 2:23 PM CDT Temperature 36 ??C (96.8 ??F) 08/19/2022 1:41 PM CDT Respiratory Rate 16 08/19/2022 2:23 PM CDT Oxygen Saturation 94% 08/19/2022 2:23 PM CDT Inhaled Oxygen Concentration - - Weight 176.9 kg (390 lb) 07/14/2022 6:10 PM PRODUCTION TEAM ADVISOR Height 167.6 cm (5' 6) 07/14/2022 6:10 PM PRODUCTION TEAM ADVISOR Body Mass Index 62.95 07/14/2022 6:10 PM PRODUCTION TEAM ADVISOR Plan of Treatment Health Maintenance Due Date Last Done Comments HIV for age 15-65 09/13/1974 Hepatitis C screening for age 18-79 09/13/1977 Colonoscopy through age 75 09/13/2004 Zoster (shingles) series for age 50+ (1 of 2) 09/13/2009 Tetanus booster 05/07/2019 05/07/2009 Depression screening for age 12+ 12/28/2019 12/27/2018, 08/24/2017, 08/23/2017, Additional history exists BMI (ht and wt on same day) for age 18+ 01/11/2020 01/10/2019, 12/27/2018, 09/13/2018, Additional history exists COVID-19 vaccine series ( season) 2023 04/03/2022, 06/18/2021 Influenza for age 50-64 01/16/2024 02/14/20 19, 02/21/2018, 02/17/2017, Additional history exists Lipids for age 45-75 03/13/2024 03/13/2019, 04/25/2018, 04/25/2018, Additional history exists Pneumococcal series for age 6-64 Aged Out 01/08/2005 No longer eligible based on patient's age to complete this topic Tdap Completed 05/07/2009 Goals Goal Patient Goal Type Associated Problems Recent Progress Patient-Stated? Author DIABETES-PATIENT WILL have a A1c at or below 7. Plan: eat prescribed diet, do blood sugar checks as prescribed, Take insulin as prescribed. Follow up with appointments as needed. . Diet On track( 12:28 PM CDT) Kay Werner DIABETES-KEEPS DAILY LOG OF GLUCOSE CHECKS :Plan: to fax the readings to Dr Benjamin as directed Diet On track( 12:28 PM CDT) No Kay [employer] Implanted Type Area Ice Cream Dispenser Device Identifier Shelf Expiration Date Model / Serial / Lot Iol Rhea +20 Tecnis Zcb00 - [id number] Implanted:Qty: 1 on 07/15/2022 by Tanner Fuentes MD at [facility] Left: Eye [employer] 06/24/2025 ZCB00 20.0 / [id number] / Iol Rhea +20 Tecnis Zcb00 - [id number] Implanted:Qty: 1 on 08/19/2022 by Tanner Fuentes MD at [facility] Right: Eye [employer] 06/24/2025 ZCB00 20.0 / [id number] / Procedures Procedure Name Priority Date/Time Associated Diagnosis Comments BASIC METABOLIC PANEL Routine 11/01/2023 10:10 AM CDT Hypokalemia LIPID PANEL Routine 03/13/2019 2:31 PM CDT Essential hypertriglyceridemia from Last 3 Months or Most Recently Relevant to Health Maintenance Results * (ABNORMAL) BASIC METABOLIC PANEL (11/01/2023 10:10 AM CDT) SODIUM 140 136 - 145 mmol/L 11/01/2023 12:09 PM CDT [facility] POTASSIUM 3.7 3.5 - 5.1 mmol/L 11/01/2023 12:09 PM CDT [facility] CHLORIDE 97(L) 98 - 107 mmol/L 11/01/2023 12:09 PM CDT [facility] CO2,TOTAL 32(H) 22 - 29 mmol/L 11/01/2023 12:09 PM CDT [facility] ANION GAP 11 5 - 18 11/01/2023 12:09 PM CDT [facility] GLUCOSE 397(H) 70 - 99 mg/dL 11/01/2023 12:09 PM CDT [facility] CALCIUM 9.2 8.8 - 10.2 mg/dL 11/01/2023 12:09 PM CDT [facility] BUN 24(H) 8 - 23 mg/dL 11/01/2023 12:09 PM CDT [facility] CREATININE 1.09 0.70 - 1.20 mg/dL 11/01/2023 12:09 PM CDT [facility] BUN/CREAT RATIO 22(H) 10 - 20 12:09 PM CDT [facility] eGFR 76(L) >90 mL/min/1.7 3m2 11/01/2023 12:09 PM CDT [facility] Comment:As of 2021, eG FR is calculated by the CKD-EPI creatinine equation without race adjustment. ??eGFR can be influenced by muscle mass, exercise, and diet. ??The reported eGFR is an estimation only and is only applicable if the renal function is stable. Blood BLOOD SPECIMEN / Unknown Client Collect / Unknown 11/01/2023 10:10 AM CDT 11/01/2023 11:43 AM CDT Harrison Munson DNP CHEMISTRY [facility] [address] [place] [address], * (ABNORMAL) LIPID PANEL (03/13/2019 2:31 PM CDT) CHOLESTEROL,TOTAL 193 100 - 199 mg/dL 03/13/2019 9:25 PM CDT [facility] TRIGLYCERIDES 715(H) <150 mg/dL 03/13/2019 9:25 PM CDT [facility] HDL CHOLESTEROL 29(L) >40 mg/dL 9 9:25 PM CDT [facility] NON-HDL CHOLESTEROL 164(H) <145 mg/dl 03/13/2019 9:25 PM CDT [facility] CHOL/HDL RATIO 6.66(H) <4.50 03/13/2019 9:25 PM CDT [facility] LDL CHOLESTEROL 9 9:25 PM CDT [facility] Comment:Invalid LDL when Tri g >400. PROVIDER ORDERED STATUS RANDOM 03/13/2019 9:25 PM CDT [facility] Blood BLOOD SPECIMEN / Unknown Venipuncture / Unknown 03/13/2019 2:31 PM CDT 03/13/2019 2:31 PM CDT Suellen Sosa MD [facility]Y [facility] 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 POLST 09/26/2014 3:45 PM AH JUAN ERNANDEZ, 09/24/2014 Healthcare Directive 06/02/2012 3:51 PM AC P * Full Code (Latest Code Status on File) Date Activated Date Inactivated Comments 08/19/2022 11:34 AM 08/19/2022 7:38 PM Question Answer Comments Code Status Discussion: Unable to Assess Preferences, Provider to review later * Full Code Date Activated Date Inactivated Comments 07/15/2022 8:20 AM 07/15/2022 2:06 PM Question Answer Comments Code Status Discussion: Unable to Assess Preferences, Provider to review later * Full Code Date Activated Date Inactivated Comments 03/14/2009 9:30 PM 03/19/2009 6:17 PM 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 PCP - General 07/15/22 Alan Lopez MD Internal Medicine Internal Medicine 11/20/10 Nishant Watson MD [address] [place] [address] Endocrinology 08/15/13
--- OUTSIDE RECORDS SUMMARY | 2023-11-03 10:30 | XMS_ITS | Referral Summary ---
Author Organization [facility] Address [address] [place] [address] Care Team Providers Care Manager Payment Name Role Phone Services, [facility] Physician Primary Care Provi sadia Prince Tobar [...] daily Active cholecalciferol (VITAMIN D3) 1250 mcg (23081 units) capsule Take 1,250 mcg by mouth every 7 days on Wednesdays. 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 Vital Signs Vital Sign Reading [...] 12/16/2022 4:59 PM CDT Plan of Treatment Not on file Procedures Procedure Name Priority Date/Time Associated Diagnosis Comments CBC WITH PLATELETS & DIFFERENTIAL Routine 10/15/2023 3:13 PM CDT Hypertensive heart disease without heart failure Atherosclerotic heart disease of [place] coronary artery without angina pectoris Body mass index (BMI) 60.0-69.9, adult (H) Chronic kidney disease, unspecified COMPREHENSIVE METABOLIC PANEL Routine 10/15/2023 3:13 PM CDT Hypertensive heart disease without heart failure Atherosclerotic heart disease of [place] coronary artery without angina pectoris Body mass index (BMI) 60.0-69.9, adult (H) Chronic kidney disease, unspecified CBC WITH PLATELETS AND DIFFERENTIAL Routine 10/15/2023 3:13 PM CDT Hypertensive heart disease without heart failure Atherosclerotic heart disease of [place] coronary artery without angina pectoris Body mass index (BMI) 60.0-69.9, adult (H) Chronic kidney disease, unspecified VITAMIN D DEFICIENCY SCREENING Routine 10/15/2023 3:13 PM CDT Hypertensive heart disease without heart failure Atherosclerotic heart disease of [place] coronary artery without angina pectoris Body mass index (BMI) 60.0-69.9, adult (H) Chronic kidney disease, unspecified HEMOGLOBIN A1C Routine 10/15/2023 3:13 PM CDT Hypertensive heart disease without heart failure Atherosclerotic heart disease of [place] coronary artery without angina pectoris Body mass index (BMI) 60.0-69.9, adult (H) Chronic kidney disease, unspecified from Last 3 Months Results * (ABNORMAL) CBC with platelets and differential (10/15/2023 3:13 PM CDT) WBC Count 5.5 4.0 - 11.0 10e3/uL [...] Harrison Munson LAB - BLOOD ORDERABL ES [facility] [address] [facility] [facility] Lab (1st floor, no room number) [place] [address], [facility] * Vitamin D Deficiency (10/15/2023 3:13 PM CDT) [facility] Vitamin D, Total (25-Hydroxy) 32 20 - 50 ng/mL 10/17/2023 4:24 PM CDT [facility] Comment:optimum levels Blood BLOOD SPECIMEN / Unknown Client Draw / Unknown 10/15/2023 3:13 PM CDT 10/15/2023 4:25 PM CDT Narrative [facility] - 10/17/2023 4:24 PM CDT Season, race, dietary intake, and treatment affect the concentration of 38-fhtzrnu-Kkyktdk D. Values may decrease during winter months and increase during summer months. Vitamin D determination is routinely performed by an immunoassay specific for 25 hydroxyvitamin D3. ??If an individual is on vitamin D2(ergocalciferol) supplementation, please specify 25 [place] vitamin D2 and D3 level determination by LCMSMS test VITD23. Harrison Munson LAB - BLOOD ORDERABL ES [facility] [address] [facility], [address] [place] [address] * (ABNORMAL) Hemoglobin A1c (10/15/2023 3:13 PM CDT) Hemoglobin A1C 10.8(H) <5.7 % 10/15/2023 4:57 PM CDT [facility] Comment: Normal <5.7% Prediabetes 5.7-6.4% ?? Diabetes 6.5% or higher Note: Adopted from ADA consensus guidelines. Blood BLOOD SPECIMEN / Unknown Client Draw / Unknown 10/15/2023 3:13 PM CDT 10/15/2023 4:25 PM CDT Harrison Munson LAB - BLOOD ORDERABL [facility] [address] [facility] Lab (1st floor, no room number) [place] [address] * (ABNORMAL) Comprehensive metabolic panel (10/15/2023 [...] - 5.3 mmol/L 10/15/2023 5:09 PM CDT LABORATORY Carbon Dioxide (CO2) 33(H) 22 - [...] Harrison Munson LAB - BLOOD ORDERABL ES [facility] [address] Lab (1st floor, no room number) [place] [address], [facility] from Last 3 Months Advance Directives For more information, please contact: [phone] Documents on File Type Date Recorded Patient 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
--- OUTSIDE RECORDS SUMMARY | 2023-11-03 10:30 | XMS_ITS | CCD ---
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, Harrison Primary Care Provider Leona vailable [place] PRESS MAINTAINER-C, Harrison Chronic Care Management U navailable Summary Purpose DataExchange Insurance Providers Payer name Policy type / Coverage type Covered constitution party ID Effective Begin Date Effective End Date Medicare [place] Medicare Part B [id number] Unknown Unknown Medicaid [place] Medicare Part B [id number] Unknown Unknown Family history Sister Brittany Suggs [...] Retirement 09/03/[address]: 3191373 Non-Smoker / No History of Smoking 09/02/[address]: 680332782 No Alcohol Consum ption 09/02/2020 Allergies, Adverse Reactions, Alerts Substance Reaction Codes Entered Date Inactivated Date Status * NO KNOWN FOOD ALLERGIES Unknown 07/13/2023 No Inactive Date Active LISINOPRIL RxNorm: 41796 02/12/2020 No Inactive Da te Active Metformin [...] E78. 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5 %) eye ointment RxNorm: 347694 Apply 1 Application Both eyes QHS every night at bedtime Instill ~1 cm ribbon into affected eye 09/28/19 24 Inactive Artificial Tears (PF) 0.1 %-0.3 % drops in a dropperette RxNorm: 997126 Apply 1-2 Drop(s) Both eyes BID as needed 09/28/19 24 Inactive erythromycin 5 mg/gram (0.5 %) eye ointment RxNorm: 307988 Apply 1 Application Both eyes QHS every night at bedtime Instill ~1 cm ribbon into affected eye 09/28/19 24 Inactive acetaminophen 500 mg tablet RxNorm: 811302 (MAX APAP:4GM/24HR) Take 1 Tablet(s) Oral TID as needed for pain 09/24/19 24 Inactive carvedilol 25 mg tablet RxNorm: 861681 Take 1 Tablet(s) Oral QD 09/08/19 24 No Stop Date Active pregabalin 100 mg capsule RxNorm: 808309 Take 1 Capsule(s) Oral QAM every morning 09/07/19 24 024 Active rosuvastatin 40 mg tablet RxNorm: 337513 Take 1 Tablet(s) Oral QPM every evening 07/13/19 24 No Stop Date Active ezetimibe 10 mg tablet RxNorm: 714950 Take 1 Tablet(s) Oral QD 07/13/19 24 No Stop Date Active bisacodyl 10 mg rectal suppository RxNorm: 588983 Insert 1 Suppository Rectal QD as needed 07/13/19 24 No Stop Date Active polyethylene glycol 3350 17 gram/dose oral powder RxNorm: 169080 Take 17 Gram(s) Oral BID as needed mix in 4-8ox water 07/13/19 24 No Stop Date Active ketoconazole 2 % shampoo RxNorm: 070976 Apply 1 Application Topical UD as directed 07/13/19 24 No Stop Date Active aripiprazole 15 mg tablet RxNorm: 246715 Take 1/2 Tablet(s) Oral QD 07/13/19 24 No Stop Date Active Ozempic 1 mg/dose (4 mg/3 mL) subcutaneous pen injector RxNorm: 6198829 Inject 1 Milligram(s) Subcutaneous QW once a week 07/13/19 24 No Stop Date Active Guaifenesin AC 10 mg-100 mg/5 mL oral liquid RxNorm: 125624 Take 10 Milliliter(s) Oral Q4H every four hours as needed 07/13/19 24 No Stop Date Active isosorbide mononitrate ER 60 mg tablet,extended release 24 hr RxNorm: 723312 Take 1 Tablet(s) Oral QD 07/13/19 24 No Stop Date Active ammonium lactate 12 % topical cream RxNorm: 971180 Apply 1 Application Topical BID 07/13/19 24 No Stop Date Active hydrocortisone 2.5 % topical cream RxNorm: 122072 Apply 1 Application Topical BID as needed 07/13/19 24 No Stop Date Active rosuvastatin 20 mg sprinkle capsule RxNorm: 0011697 Take 1 Capsule(s) Oral QD 07/13/19 24 No Stop Date Active Vascepa 1 gram capsule RxNorm: 1680086 Take 2 Capsule(s) Oral BID 07/13/19 24 No Stop Date Active venlafaxine ER 75 mg capsule,extended release 24 hr RxNorm: 614073 Take 3 Capsule(s) Oral QD 07/13/19 24 No Stop Date Active Basaglar KwikPen U-100 Insulin 100 unit/mL (3 mL) subcutaneous RxNorm: 5090066 Inject 30U SubQ twice daily 07/07/19 24 025 Active Please dispense one month supply. Radha MendenhallPen U-100 Insulin 100 unit/mL (3 mL) subcutaneous RxNorm: 7295292 Inject 30U SubQ twice daily 07/07/19 24 024 Inactive Please dispense one month supply. pregabalin 150 mg capsule RxNorm: 143144 Take 1 Capsule(s) Oral QHS every night at bedtime 07/05/19 24 024 Active pregabalin 150 mg capsule RxNorm: 584364 Take 1 Capsule(s) Oral QHS every night at bedtime 07/05/19 24 024 Inactive polyethylene glycol 3350 17 gram/dose oral powder RxNorm: 802939 Take 1 Packet Oral QD as needed (1 packet = 17g) mix with 4-8oz of liquid 06/15/19 24 024 Inactive bisacodyl 10 mg rectal suppository RxNorm: 133686 Insert one suppository per rectum once daily as needed for constipation 06/15/19 24 024 Inactive bisacodyl 10 mg rectal suppository RxNorm: 837679 Insert one suppository per rectum once daily as needed for constipation 06/15/19 24 024 Inactive pregabalin 100 mg capsule RxNorm: 343350 Take 1 Capsule(s) Oral QAM every morning 04/27/20 23 024 Inactive Levemir FlexPen 100 unit/mL (3 mL) solution subcutaneous insulin pen RxNorm: 206469 Inject 30 Unit(s) Subcutaneous BID 04/27/20 23 024 Inactive rosuvastatin 40 mg tablet RxNorm: 582988 Take 1 Tablet(s) Oral QPM every evening 04/16/20 23 024 Inactive D/C rosuvastatin 20mg venlafaxine ER 75 mg capsule,extended release 24 hr RxNorm: 516048 Take 3 Capsule(s) Oral QD 04/14/20 23 023 Inactive pregabalin 100 mg capsule RxNorm: 131083 Take 1 Capsule(s) Oral QAM every morning [...] meter clotrimazole 1 % topical cream RxNorm: 724400 Take apply topically to abdominal folds twice daily for 14 days 03/12/20 024 Inactive Ozempic 1 mg/dose (4 mg/3 mL) subcutaneous pen injector RxNorm: 8098104 Inject 1 Milligram(s) Subcutaneous QW once a week 03/11/20 023 Inactive rosuvastatin 20 mg tablet RxNorm: 374385 Take 1 Tablet(s) Oral QD 02/26/20 023 Inactive d/c pravastatin 80mg Ozempic 1 mg/dose (4 mg/3 mL) subcutaneous pen injector RxNorm: 5087118 Inject 1 Milligram(s) Subcutaneous QW once a week 02/20/20 023 Inactive pregabalin 150 mg capsule RxNorm: 300153 Take 1 Capsule(s) Oral HS at bed time 02/19/20 023 Inactive pregabalin 100 mg capsule RxNorm: 812706 Take 1 Capsule(s) Oral QAM every morning 02/18/20 023 Inactive venlafaxine ER 75 mg capsule,extended release 24 hr RxNorm: 029071 Take 3 Capsule(s) Oral QD 02/04/20 23 023 Inactive FreeStyle Chema 2 Sensor kit RxNorm: use as directed 02/04/20 23 023 Inactive FreeStyle Chema 2 Sensor kit RxNorm: use as directed 02/04/20 23 024 Inactive fluconazole 150 mg tablet RxNorm: 724590 Take 1 Tablet(s) Oral on day 3 and on day 6 02/03/20 024 Active chlorthalidone 25 mg tablet RxNorm: 549125 Take 1 Tablet(s) Oral QAM every morning 02/03/20 No Stop Date Active venlafaxine ER 150 mg capsule,extended release 24 hr RxNorm: 672644 Take 1 Capsule(s) Oral QD 02/03/20 023 Inactive acetaminophen 500 mg tablet RxNorm: 302074 1 TABLET ORALLY 3 TIMES DAILY (MAX APAP:4GM/24HR) 12/15/19 023 Inactive clotrimazole 1 % topical cream RxNorm: 543462 apply 1g topically to top of feet and in between toes BID 12/09/19 023 Inactive potassium chloride ER 20 mEq tablet,extended release RxNorm: 645525 Take 1 Tablet(s) Oral BID 12/09/19 024 Inactive d/c 20mEq once daily (sent from hospital) nystatin 100,000 unit/gram topical powder RxNorm: 372104 APPLY TO AFFECTED AREAS TOPICALLY 2 TIMES DAILY 11/21/19 024 Inactive Nystop 100,000 unit/gram topical powder RxNorm: 567857 Apply to abd folds, under breasts and L side of groin Topical BID x 14 days, then BID PRN 11/20/19 023 Inactive dx: yeast dermatitis [place] Ultra Strength 4 %-30 %-10 % topical cream RxNorm: 274323 Apply 1 Gram(s) Topical QID PRN to feet and legs for neuropathic pain 11/11/19 024 Active clotrimazole 1 % topical cream RxNorm: 464052 Apply 1/2 Gram(s) Topical BID Apply to affected areas of groin, periarea, and abdominal topically 2 times daily 11/10/19 23 023 Inactive hydrocortisone 2.5 % topical cream RxNorm: 458411 Apply 1/2 Gram(s) Topical BID as needed 11/10/19 024 Inactive Humulin R U-500 (Concentrated) Insulin 500 unit/mL subcutaneous soln RxNorm: 412758 Inject 100 Unit(s) Subcutaneous TID 10/07/19 024 Inactive Levemir FlexPen 100 unit/mL (3 mL) solution subcutaneous insulin pen RxNorm: 473852 Inject 30 Unit(s) Subcutaneous BID 10/07/19 023 Inactive Ozempic 0.25 mg or 0.5 mg (2 mg/3 mL) subcutaneous pen injector RxNorm: 7375028 Inject 1/2 Milligram(s) Subcutaneous QW once a week 10/07/19 024 Inactive aripiprazole 15 mg tablet RxNorm: 534653 1/2 TAB (7.5MG) ORALLY DAILY (DX:MAJOR DEPRESSIVE DISORDER) 09/23/19 023 Inactive Lancets,Thin 28 gauge RxNorm: Use 1 as directed QID 09/15/19 23 024 Inactive Accu-Chek Guide test strips RxNorm: Use 1 Test Strip QID 09/15/19 23 023 Inactive ok to substitute with any covered alternative test strip torsemide 20 mg tablet RxNorm: 350448 Take 1 Tablet(s) Oral BID 09/09/19 024 Inactive d/c once daily dosing carvedilol 25 mg tablet RxNorm: 558889 Take 1 Tablet(s) Oral QD 08/25/19 024 Inactive pregabalin 150 mg capsule RxNorm: 121084 1 Capsule(s) Oral HS at bed time 08/18/19 023 Inactive pregabalin 100 mg capsule RxNorm: 161285 1 Capsule(s) Oral QAM every morning 08/18/19 023 Inactive carvedilol 25 mg tablet RxNorm: 797458 1 Tablet(s) Oral QD 07/28/19 23 023 Inactive lisinopril 20 mg tablet RxNorm: 818878 Give 1 Tablet(s) Oral QD 07/28/19 23 023 Inactive Lyrica 150 mg capsule RxNorm: 597251 Take 1 Capsule(s) Oral QHS every night at bedtime 07/19/19 023 Inactive d/c 100mg dose Diflucan 150 mg tablet RxNorm: 611637 Take 1 Tablet(s) Oral QD repeat on day 3 and 6 07/19/19 23 023 Inactive pregabalin 100 mg capsule RxNorm: 815369 Take 1 Capsule(s) Oral QAM every morning 07/19/19 23 023 Inactive gatifloxacin 0.5 % eye drops RxNorm: 744793 Instill 1 Drop(s) as directed TID Instill 1 drop in to affected eye(s) starting 1 day prior to surgery and continue until gone (do not exceed 4 weeks). 07/13/19 23 023 Inactive carvedilol 25 mg tablet RxNorm: 643749 2 Tablet(s) Oral BID 07/13/19 23 023 Inactive Humulin R Regular U-100 Insulin 100 unit/mL injection solution RxNorm: 425738 85 Unit(s) Injection TID 07/13/19 23 023 Inactive ketorolac 0.5 % eye drops RxNorm: 966337 Instill 1 Drop(s) as directed QID Instill 1 drop into affected eye(s) 4 times daily starting 1 day prior to surgery and continue until gone (do not exceed 4 weeks). 07/13/19 23 023 Inactive Diflucan 150 mg tablet RxNorm: 557597 Take 1 Tablet(s) Oral QD repeat on day 3 and 6 06/30/19 23 023 Inactive Accu-Chek Guide test strips RxNorm: Use 1 Test Strip QID Use 1 test strip to monitor blood glucose 4 times daily and as needed. Dx:E11.42. 06/23/19 23 023 Inactive ok to substitute with any covered alternative test strip dextromethorphan-gu aifenesin 10 mg-100 mg/5 mL oral liquid RxNorm: 675899 Take 10 Milliliter(s) Oral every 4 hours as needed for cough 06/19/19 23 023 Inactive dextromethorphan-gu aifenesin 10 mg-100 mg/5 mL oral liquid RxNorm: 553308 Take 10 Milliliter(s) Oral every 4 hours as needed for cough 06/19/19 23 023 Inactive Lyrica 150 mg capsule RxNorm: 231641 Take 1 Capsule(s) Oral QHS every night at bedtime 06/18/19 023 Inactive d/c 100mg dose aripiprazole 15 mg tablet RxNorm: 599847 /2 TAB (7.5MG) ORALLY DAILY (DX:MAJOR DEPRESSIVE DISORDER) 06/05/19 23 023 Inactive pregabalin 100 mg capsule RxNorm: 388078 1 Capsule(s) Oral QAM every morning 06/02/19 023 Inactive Banophen 50 mg capsule RxNorm: 1841409 Take 1 Capsule(s) Oral Q6H every 6 hours as needed 05/19/19 23 No Stop Date Active Novolog Flexpen U-100 Insulin aspart 100 unit/mL (3 mL) subcutaneous RxNorm: 1411384 Inject 10 Unit(s) Subcutaneous QHS every night at bedtime with nighttime snack 04/08/20 022 Inactive Novolog Flexpen U-100 Insulin aspart 100 unit/mL (3 mL) subcutaneous RxNorm: 3970412 Inject 42 Unit(s) Subcutaneous TID in addition to sliding scale 04/08/20 022 Inactive d/c 36u albuterol sulfate HFA 90 mcg/actuation aerosol inhaler RxNorm: 4331354 Take 2 Puff(s) Inhalation Q4H every four hours as needed as needed for SOB, cough, or wheezing 04/07/20 22 030 Active Banophen 50 mg capsule RxNorm: 9995678 Take 1 Capsule(s) Oral Q6H every 6 hours as needed 04/06/20 023 Inactive diphenhydramine 50 mg tablet RxNorm: 8751822 Take 1 Tablet(s) Oral Q6H every 6 hours as needed 04/06/20 22 022 Inactive diphenhydramine 50 mg tablet RxNorm: 5713150 1 Tablet(s) Oral Q6H every 6 hours as needed 04/06/20 22 022 Inactive Abilify 15 mg tablet RxNorm: 653913 /2 Tablet(s) Oral QD 03/10/20 22 023 Inactive Shingrix (PF) 50 mcg/0.5 mL intramuscular suspension, kit RxNorm: 5088092 Administer 1/2 Milliliter(s) Intramuscular QD one time shingrix step 2 ( step 1 given 11/04/21) WITH needle - Nursing please administer upon arrival and once administered post a bridge message with date of administration, ditcher, expiration date, and lot# so we can update [facility] 02/18/20 22 022 Inactive dispense with needle Shingrix (PF) 50 mcg/0.5 mL intramuscular suspension, kit RxNorm: 5603266 Administer 1/2 Milliliter(s) Intramuscular QD one time shingrix step 2 ( step 1 given 11/04/21) WITH needle - Nursing please administer upon arrival and once administered post a bridge message with date of administration, ditcher, expiration date, and lot# so we can update [facility] 02/18/20 22 022 Inactive dispense with needle polyethylene glycol 3350 17 gram/dose oral powder RxNorm: 059732 Take 17=1 capful Gram(s) Oral QD mix with 4-8oz of liquid 01/08/20 22 023 Inactive take this in addition to BID prn order Lyrica 100 mg capsule RxNorm: 619830 Take 1 Capsule(s) Oral QAM every morning 01/08/20 22 022 Inactive d/c 50mg dose acetaminophen 500 mg tablet RxNorm: 572916 Take 1 Tablet(s) Oral TID 01/08/20 22 022 Inactive d/c PRN order Lyrica 150 mg capsule RxNorm: 661869 Take 1 Capsule(s) Oral QHS every night at bedtime 01/08/20 22 023 Inactive d/c 100mg dose Abilify 5 mg tablet RxNorm: 629665 Take 1 Tablet(s) Oral QD take 1 tab po QD #30 refill 5 dx: MDD 12/12/19 22 022 Inactive Abilify 5 mg tablet RxNorm: 841731 Take 1 Tablet(s) Oral QD take 1 tab po QD #30 refill 5 dx: MDD 12/12/19 22 022 Inactive Novolog Flexpen U-100 Insulin aspart 100 unit/mL (3 mL) subcutaneous RxNorm: 6910674 Inject 42 Unit(s) Subcutaneous TID in addition to sliding scale 12/10/19 22 022 Inactive d/c 36u chlorthalidone 25 mg tablet RxNorm: 949523 Take 1 Tablet(s) Oral QAM every morning 12/10/19 22 023 Inactive pregabalin 50 mg capsule RxNorm: 778383 Take 1 Capsule(s) Oral QAM every morning 11/12/19 22 022 Inactive tetanus-diphtheria toxoids-Td 2 Lf unit-2 Lf unit/0.5 mL IM suspension RxNorm: 139 Take 0.5 Miscellaneous Intramuscular 11/12/19 22 022 Inactive need tdap - nursing to administer upon arrival pregabalin 50 mg capsule RxNorm: 434640 Take 1 Capsule(s) Oral QAM every morning 10/16/19 022 Inactive pregabalin 50 mg capsule RxNorm: 535404 Take 1 Capsule(s) Oral QAM every morning 10/16/19 22 022 Inactive pregabalin 50 mg capsule RxNorm: 700088 1 Capsule(s) Oral QAM every morning 10/15/19 22 022 Inactive Shingrix (PF) 50 mcg/0.5 mL intramuscular suspension, kit RxNorm: 1365743 Administer 1/2 Milliliter(s) Intramuscular one time Nursing please administer upon arrival and once administered post a bridge message with date of administration, ditcher, expiration date, and lot# so we can update [facility]. 10/09/19 22 022 Inactive shingrix step 1 Shingrix (PF) 50 mcg/0.5 mL intramuscular suspension, kit RxNorm: 5765762 Administer 1/2 Milliliter(s) Intramuscular one time Nursing please administer upon arrival and once administered post a bridge message with date of administration, ditcher, expiration date, and lot# so we can update [facility]. 10/09/19 22 022 Inactive shingrix step 1 cholecalciferol (vitamin D3) 1,250 mcg (50,000 unit) capsule RxNorm: 201286 Take 1 Capsule(s) Oral QW once a [...] aspart 100 unit/mL (3 mL) subcutaneous RxNorm: 3662858 Inject 10 Unit(s) Subcutaneous QHS every night at bedtime with nighttime snack 10/08/19 22 Inactive Shingrix (PF) 50 mcg/0.5 mL intramuscular suspension, kit RxNorm: 9578418 ADMINISTER 2-DOSE SERIES PER CDC GUIDELINES 10/08/19 22 Active Shingrix (PF) 50 mcg/0.5 mL intramuscular suspension, kit RxNorm: 5401205 ADMINISTER 2-DOSE SERIES PER CDC GUIDELINES 10/08/19 22 Inactive Novolog Flexpen U-100 Insulin aspart 100 unit/mL (3 mL) subcutaneous RxNorm: 6601288 Inject 36 Unit(s) Subcutaneous TID in addition to sliding scale 10/08/19 22 Inactive Novofine Autocover 30 gauge x 1/3 needle RxNorm: Use 1 Miscellaneous UD as directed Use 1 needle as directed to administer insulin 5 times a day Dx:E11.42. 10/03/19 Inactive ok to substitute with any covered alternative pen needle benzoyl peroxide 10 % topical cleanser RxNorm: 810883 Apply 1 Application Topical QD apply to face, wash rinse and dry once daily (may change to QOD if drying) 08/19/19 22 022 Inactive (%covered by insurance) #60ml refill 11 dx: acne benzoyl peroxide 10 % topical cleanser RxNorm: 096570 Apply 1 Application Topical QD apply to face, wash rinse and dry once daily (may change to QOD if drying) 08/19/19 22 022 Inactive (%covered by insurance) #60ml refill 11 dx: acne benzoyl peroxide 10 % topical cleanser RxNorm: 866819 Apply 1 Application Topical QD apply to face, wash rinse and dry once daily (may change to QOD if drying) 08/19/19 22 022 Inactive (%covered by insurance) #60ml refill 11 dx: acne Lyrica 50 mg capsule RxNorm: 008769 Take 1 Capsule(s) Oral QAM every morning Take 1 capsule by mouth once daily 08/19/19 22 022 Inactive benzoyl peroxide 10 % topical cleanser RxNorm: 917472 Apply 1 Application Topical QD apply to face, wash rinse and dry once daily (may change to QOD if drying) 08/19/19 22 022 Inactive (%covered by insurance) #60ml refill 11 dx: acne Lyrica 100 mg capsule RxNorm: 636710 Take 1 Capsule(s) Oral QHS every night at bedtime Take 1 capsule by mouth once daily at bedtime 08/19/19 22 022 Inactive Lyrica 100 mg capsule RxNorm: 652821 Take 1 Capsule(s) Oral QHS every night at bedtime Take 1 capsule by mouth once daily at bedtime 08/16/19 22 Inactive Lyrica 50 mg capsule RxNorm: 316095 Take 1 Capsule(s) Oral QAM every morning Take 1 capsule by mouth once daily 08/16/19 22 Inactive Levemir FlexTouch U-100 Insulin 100 unit/mL (3 mL) subcutaneous pen RxNorm: 521700 Inject 86 Unit(s) Subcutaneous BID 08/05/19 22 022 Inactive d/c 83units BID Lyrica 100 mg capsule RxNorm: 479918 Take 1 Capsule(s) Oral QHS every night at bedtime Take 1 capsule by mouth once daily at bedtime 07/14/19 22 022 Inactive Lyrica 50 mg capsule RxNorm: 034956 Take 1 Capsule(s) Oral QAM every morning Take 1 capsule by mouth once daily 07/14/19 22 022 Inactive Levemir FlexTouch U-100 Insulin 100 unit/mL (3 mL) subcutaneous pen RxNorm: 999627 Inject 83 Unit(s) Subcutaneous BID 07/08/19 22 [...] test strip hydralazine 50 mg tablet RxNorm: 233574 Take 1 Tablet(s) Oral QID 05/05/20 21 022 Inactive venlafaxine ER 225 mg tablet,extended release 24 hr RxNorm: 666374 Take 1 Tablet(s) Oral QD 05/05/20 21 021 Inactive venlafaxine ER 225 mg tablet,extended release 24 hr RxNorm: 434426 Take 1 Tablet(s) Oral QD 05/05/20 022 Inactive isosorbide mononitrate ER 30 mg tablet,extended release 24 hr RxNorm: 984747 Take 1 Tablet(s) Oral QD 05/05/20 024 Inactive hydralazine 50 mg tablet RxNorm: 712752 Take 1 Tablet(s) Oral QID 05/05/20 021 Inactive aspirin 81 mg tablet,delayed release RxNorm: 107712 Take 1 Tablet(s) Oral QD 03/31/20 022 Inactive Vitamin D2 1,250 mcg (50,000 unit) capsule RxNorm: 0739876 Take 1 Capsule(s) Oral QW once a week x 12 weeks 03/31/20 Inactive Vitamin D2 1,250 mcg (50,000 unit) capsule RxNorm: 7502582 Take 1 Capsule(s) Oral QW once a week 03/31/20 021 Inactive Zetia 10 mg tablet RxNorm: 169579 Take 1 Tablet(s) Oral QD 03/31/20 024 Inactive Zetia 10 mg tablet RxNorm: 286072 Take 1 Tablet(s) Oral QD 03/31/20 021 Inactive hydralazine 25 mg tablet RxNorm: 684190 Take 1 Tablet(s) Oral QID 03/31/20 021 Inactive hydralazine 25 mg tablet RxNorm: 691192 Take 1 Tablet(s) Oral QID 03/31/20 021 Inactive hydralazine 10 mg tablet RxNorm: 440140 Take 1 Tablet(s) Oral QID 03/03/20 021 Inactive cephalexin 500 mg tablet RxNorm: 211827 Take 1 Tablet(s) Oral QID 02/27/20 021 Inactive cephalexin 500 mg tablet RxNorm: 112896 Take 1 Tablet(s) Oral QID 02/27/20 021 Inactive lisinopril 40 mg tablet RxNorm: 131419 Take 1 Tablet(s) Oral QD 02/11/20 023 Inactive Eliquis 5 mg tablet RxNorm: 1421270 Take 1 Tablet(s) Oral BID 01/05/20 022 Inactive Eliquis 5 mg tablet RxNorm: 6838654 Take 2 Tablet(s) Oral QD 01/01/20 21 021 Inactive Lyrica 50 mg capsule RxNorm: 750789 Take 1 Capsule(s) Oral QAM every morning 12/24/19 021 Inactive Lyrica 100 mg capsule RxNorm: 217409 Take 1 Capsule(s) Oral QHS every night at bedtime 12/24/19 021 Inactive clotrimazole 1 % topical cream RxNorm: 762551 Apply to right foot and toes Topical BID 12/04/19 21 023 Inactive metoprolol succinate ER 200 mg tablet,extended release 24 hr RxNorm: 996073 Take 1 Tablet(s) Oral QD 12/04/19 023 Inactive ciprofloxacin 500 mg tablet RxNorm: 769110 Take 1 Tablet(s) Oral QD 11/30/19 021 Inactive DX ofloxacin otic drops Accu-Chek Guide test strips RxNorm: USE 1 TO CHECK GLUCOSE 4 TIMES DAILY AND NEEDED 11/15/19 023 Inactive Blood Glucose Test strips RxNorm: Use 1 Test Strip QID at PRN 11/05/19 21 023 Inactive E11.42 lisinopril 30 mg tablet RxNorm: 549080 Take 1 Tablet(s) Oral QD 10/30/19 021 Inactive lisinopril 20 mg tablet RxNorm: 467918 Take 1 Tablet(s) Oral QD 10/23/19 021 Inactive lisinopril 20 mg tablet RxNorm: 262920 Take 1 Tablet(s) Oral QD 10/23/19 21 021 Inactive lisinopril 10 mg tablet RxNorm: 532963 Take 1 Tablet(s) Oral QD 10/02/19 21 021 Inactive icosapent ethyl 1 gram capsule RxNorm: 3151512 Take 2 Capsule(s) (2 gm) Oral BID with meals 09/12/19 024 Inactive Okay to dispense one 2gm tab if you have that available. icosapent ethyl 1 gram capsule RxNorm: 7311236 Take 2 Capsule(s) Oral BID 09/12/19 21 021 Inactive Okay to dispense one 2gm tab if you have that available. amlodipine 10 mg tablet RxNorm: 570806 Take 1 Tablet(s) Oral QD 09/04/19 21 022 Inactive aspirin 81 mg tablet,delayed release RxNorm: 478984 Take 1 Tablet(s) Oral QD 09/04/19 021 Inactive Levemir FlexTouch U-100 Insulin 100 unit/mL (3 mL) subcutaneous pen RxNorm: 219723 Inject 150 Unit(s) Subcutaneous BID 09/04/19 21 022 Inactive venlafaxine ER 150 mg tablet,extended release 24 hr RxNorm: 582762 Take 1 Tablet(s) Oral QD 09/04/19 021 Inactive clotrimazole-betame thasone 1 %-0.05 % topical cream RxNorm: 536853 Apply to rash on red area on left abdomen/chest Topical BID 08/10/19 Inactive amlodipine 5 mg tablet RxNorm: 729305 Take 1 Tablet(s) Oral QD 07/31/19 21 021 Inactive cephalexin 500 mg tablet RxNorm: 080875 Take 1 Tablet(s) Oral BID BID - Twice Daily 07/31/19 021 Inactive Start 08/01/20 pantoprazole 40 mg tablet,delayed release RxNorm: 482669 Take 1 Tablet(s) Oral QAM every morning 07/08/19 022 Inactive senna 8.6 mg tablet RxNorm: 737309 Take 1 Tablet(s) Oral QD 07/08/19 022 Inactive carbamazepine 200 mg tablet RxNorm: 691562 Take 1 Tablet(s) Oral BID 07/08/19 21 022 Inactive clopidogrel 75 mg tablet RxNorm: 565779 Take 1 Tablet(s) Oral QD 07/08/19 21 021 Inactive Blood Glucose Test strips RxNorm: Use 1 Test Strip QID at PRN 07/08/19 21 Inactive E11.42 Novolog Flexpen U-100 Insulin aspart 100 unit/mL (3 mL) subcutaneous RxNorm: 5740760 Administer per sliding scale Milliliter(s) Subcutaneous TID 151-200: 10 u; 201-250: 20 u; 251-300: 30 u; 301-350: 40 u; 351-400: 50 u. 07/08/19 21 022 Inactive lisinopril 5 mg tablet RxNorm: 876184 Take 1 Tablet(s) Oral QD 07/08/19 21 021 Inactive Novolog Flexpen U-100 Insulin aspart 100 unit/mL (3 mL) subcutaneous RxNorm: 6743956 Inject 85 Unit(s) Subcutaneous TID 07/08/19 022 Inactive pravastatin 80 mg tablet RxNorm: 422447 Take 1 Tablet(s) Oral QHS every night at bedtime 07/08/19 023 Inactive clotrimazole 1 % topical cream RxNorm: 892702 Apply to bilateral groin areas Topical BID 07/08/19 21 022 Inactive metoprolol succinate ER 200 mg tablet,extended release 24 hr RxNorm: 718818 Take 1 Tablet(s) Oral QD 07/08/19 Inactive Vitamin D3 25 mcg (1,000 unit) tablet RxNorm: 601751 Take 1 Tablet(s) Oral QD 07/08/19 021 Inactive isosorbide dinitrate 30 mg tablet RxNorm: 812614 Take 1 Tablet(s) Oral QD 07/08/19 021 Inactive Levemir FlexTouch U-100 Insulin 100 unit/mL (3 mL) subcutaneous pen RxNorm: 546396 Inject 140 Unit(s) Subcutaneous BID 07/08/19 21 021 Inactive torsemide 20 mg tablet RxNorm: 328615 Take 1 Tablet(s) Oral QD 07/08/19 21 023 Inactive venlafaxine 75 mg tablet RxNorm: 525467 Take 1 Tablet(s) Oral QD 07/08/19 21 021 Inactive acetaminophen 500 mg tablet RxNorm: 650195 Take 1 Tablet(s) Oral TID as needed for headache 06/18/19 21 021 Inactive acetaminophen 500 mg tablet RxNorm: 212133 Take 1 Tablet(s) Oral TID as needed for headache 06/18/19 21 021 Inactive Lyrica 100 mg capsule RxNorm: 563395 Take 1 Capsule(s) Oral QHS every night at bedtime 06/11/19 21 021 Inactive Lyrica 50 mg capsule RxNorm: 406053 Take 1 Capsule(s) Oral QAM every morning 06/10/19 21 021 Inactive hydrocortisone 2.5 % topical cream RxNorm: 955987 Apply to bilateral groin creases Topical BID 05/15/20 20 021 Inactive clotrimazole 1 % topical cream RxNorm: 733620 Apply to bilateral groin areas Topical BID 05/15/20 20 021 Inactive Lyrica 50 mg capsule RxNorm: 282619 Take 1 Capsule(s) Oral QAM every morning 05/14/20 20 020 Inactive Lyrica 100 mg capsule RxNorm: 822899 Take 1 Capsule(s) Oral QHS every night [...] Inactive Nystop 100,000 unit/gram topical powder RxNorm: 953499 Apply to abd folds, under breasts and L side of groin Topical BID x 14 days, then BID PRN 04/08/20 20 Inactive dx: yeast dermatitis Lyrica 100 mg capsule RxNorm: 303243 Take 1 Capsule(s) Oral QHS every night at bedtime 03/13/20 20 Inactive Lyrica 50 mg capsule RxNorm: 877316 Take 1 Capsule(s) Oral QAM every morning 03/13/20 20 Inactive ketoconazole 2 % shampoo RxNorm: 626544 Apply Topical two times a week with showers 03/11/20 20 Inactive cholecalciferol (vitamin D3) 50 mcg (2,000 unit) tablet RxNorm: 505096 Take 1 Tablet(s) Oral QD 03/11/20 20 Inactive Zetia 10 mg tablet RxNorm: 562378 Take 1 Tablet(s) Oral QD 03/07/20 20 Inactive Zetia 10 mg tablet RxNorm: 862213 Take 1 Tablet(s) Oral QD 03/07/20 20 Inactive Lyrica 50 mg capsule RxNorm: 203409 Take 1 Capsule(s) Oral QAM every morning 02/15/20 20 Inactive Lyrica 100 mg capsule RxNorm: 693660 Take 1 Capsule(s) Oral QHS every night at bedtime 02/15/20 20 Inactive Lyrica 100 mg capsule RxNorm: 843404 Take 1 Capsule(s) Oral QHS every night at bedtime 02/15/20 20 Inactive Lyrica 50 mg capsule RxNorm: 569392 Take 1 Capsule(s) Oral QAM every morning 02/15/20 20 Inactive metoprolol succinate ER 200 mg tablet,extended release 24 hr RxNorm: 299703 Take 1 Tablet(s) Oral QD 08/12/19 Active loperamide 2 mg capsule RxNorm: 754025 Take 1 Capsule(s) Oral QID as needed 06/12/19 Active hydralazine 50 mg tablet RxNorm: 375816 Take 1 Tablet(s) Oral QID 08/12/19 23 Active venlafaxine ER 75 mg capsule,extended release 24 hr RxNorm: 741385 Take 3 Capsule(s) Oral QD 06/12/19 22 023 Inactive polyethylene glycol 3350 17 gram/dose oral powder RxNorm: 903260 Take 17=1 capful Gram(s) Oral BID as needed mix with 4-8oz of liquid 06/12/19 22 024 Inactive icosapent ethyl 1 gram capsule RxNorm: 2127897 Take 2 Capsule(s) (2 gm) Oral BID with meals 10/07/19 23 023 Inactive Okay to dispense one 2gm tab if you have that available. Levemir FlexTouch U-100 Insulin 100 unit/mL (3 mL) subcutaneous pen RxNorm: 918825 Inject 80 Unit(s) Subcutaneous BID 07/14/19 23 023 Inactive Novolog Flexpen U-100 Insulin aspart 100 unit/mL (3 mL) subcutaneous RxNorm: 5051992 Insert 30 Unit(s) Subcutaneous TID with meals 10/08/19 22 022 Inactive Medication Administered No Medication Administered data Reason For Visit No Reason For Visit data Plan of Care Planned Activity Notes Codes Status Date Referral: [facility] WPtel: [address] [facility], [address] [id number] Referral Records Received 09/21/2022 Referral: [facility] WPtel: [address] [facility] [address] [id number] [place] Referral Completed 05/28/2021 Referral: General Cardiology Referral Complet ed 01/03/2021 Referral: General Psychologist Referral Close d Referral: General Psychiatrist Referral Patient/Family Scheduling Appointment Instructions Comment Date Leonid is a?? Male being seen living at [facility]. Initial [facility] visit 01/2020. PMHx including DMII, CAD w/ 5 stents, Depression, Seizure Disorder and CKD stage 3. He moved into [facility] in 12/2019 but after a hospitalization 05/2021 he moved to the [facility] to have closer nursing attention.??Sister Jyotsna involved in his care cell# [phone]??Guardian: Don (tapan met in person 09/01/21), now has Lexii (same group as don)Lab Schedule: /September*September (CBC with diff, CMP, A1c) (Novemebr: CBC, CMP, A1c, Lipids, VitD) 10/08/2023
[2023-11-03 10:31] LABS: Basophils Percent Auto 0.2 % (0.0-3.0); Eosinophils Percent Auto 3.1 % (0.0-7.0); Hematocrit 38.7 % (37.0-53.0); Hemoglobin* 12.8 gm/dL (13.5-17.5); Lymphocytes Percent Auto 37.2 % (20-44); Mean Corpuscular HGB Conc 33 gm/dL (32-36); Mean Corpuscular Hemoglobin 29 pg (26-34); Mean Corpuscular Volume 87 fL (80-100); Monocytes Percent Auto 7.2 % (0.0-11.0); Neutrophils Percent Auto 52.3 % (42.0-72.0); Platelet Count* 145 K/uL (140-440); RDW Coefficient of Variation % 14.7 % (11.5-15.5); Red Blood Count 4.45 m/uL (4.30-5.90); White Blood Count* 4.17 K/uL (4.50-11.00)
[2023-11-03 10:36] LABS: Slide Review Reflex No
[2023-11-03 10:39] LABS: Appearance Urine Clear (Clear); Bilirubin Urine Negative (Negative); Blood Urine Negative (Negative); Color Urine Yellow (Yellow); Glucose Urine 3+ (Negative); Ketones Urine Negative (Negative); Leukocyte Esterase Urine Negative (Negative); Nitrite Urine Negative (Negative); Protein Urine Negative (Negative); Specific Gravity Urine 1.015 (1.000-1.030); Urobilinogen Urine 0.2 (0.2-1.0)
[2023-11-03 10:43] LABS: Bilirubin Direct* 0.4 mg/dL (0.0-0.5)
[2023-11-03 10:47] LABS: C Reactive Protein* 1.3 mg/dL (0.5-1.0)
[2023-11-03 10:47] LABS: RBC Urine 0-2 (0-2); WBC Urine 0-2 (0-5)
[2023-11-03 11:01] LABS: Albumin* 3.7 g/dL (3.3-5.0)
[2023-11-03 11:02] LABS: Chloride* 101 mmol/L (96-114); Potassium* 3.9 mmol/L (3.6-5.1); Sodium* 137 mmol/L (135-149)
[2023-11-03 11:04] LABS: Anion Gap 5 mEq/L (7-15); Aspartate Amino Transferase* 42 U/L (12-35); Bilirubin Total* 0.5 mg/dL (0.1-1.5); Carbon Dioxide* 31 mmol/L (20-32); Est. Creatinine Clearance* 67.34; Estimated Glomerular Filt Rate 84 ml/min; Total Protein* 6.5 g/dL (6.0-8.3)
[2023-11-03 11:05] LABS: Alanine Aminotransferase* 30 U/L (4-50); Alkaline Phosphatase* 98 U/L (40-150); Blood Urea Nitrogen* 23 mg/dL (7-30); Calcium* 8.2 mg/dL (8.4-10.6); Lipase* 58 U/L (23-300)
[2023-11-03 11:17] LABS: Troponin I* 0.02 ng/mL (0.01-0.04)
[2023-11-03 11:19] LABS: Glucose* 395 mg/dL (60-115); NT Pro B Type NatriureticPept* 134 pg/mL
--- NOTE | 2023-11-03 15:01 | PC.SOCIAL ---
Social work: Spoke with pt's guardian, Danielle Sierra, through [employer] [phone] who confirmed she is guardian for pt and should be first contact. [facility] and left multiple messages requesting calls back to ED for nurse to nurse. Was able to confirm direct number to RN at the [facility] as [phone].
== END 2023-11-03 14:39 | disposition home or self-care (01) ==
PROVIDERS: Emergency Provider Family Medicine
DX: R10.13 Epigastric pain (principal); E11.9 Type 2 diabetes mellitus without complications; Z79.4 Long term (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 insulin
CPT/HCPCS: 36415; 74177; 80053; 81001; 82248; 83605; 83690; 83880; 84484; 85025; 86140; 94761; 99284; Q9967

== ENCOUNTER 2023-11-03 14:27 | Outpatient (CLI) | payer MEDICARE, MEDICAID, SELFPAY | END 2023-11-03 14:28 | disposition home or self-care (01) | LOC: AMB 11-06 05:49 | PROVIDERS: Visit Provider Family Medicine | DX: K42.9 Umbilical hernia without obstruction or gangrene (principal); K76.0 Fatty (change of) liver, not elsewhere classified; R10.13 Epigastric pain | CPT/HCPCS: A0425; A0428 ==

== ENCOUNTER 2023-12-27 04:50 | Outpatient (CLI) | payer MEDICARE, MEDICAID, SELFPAY ==
--- OUTSIDE RECORDS SUMMARY | 2023-12-29 22:57 | XMS_ITS | Encounter Summary ---
Author Organization [facility] Address [address] [place] [address] Care Team Providers Care Software Design Manager Name Role Phone Services, [facility] Physician Primary Care Provi sadia Prince Tobar MD Unavailable [phone] Prince Tobar MD Unavailable [phone] Reason for Referral * Consultation (Priority: 1-2 Weeks) - Pending Review Specialty Diagnoses / Procedures Referred By Sher dalal Referred To Contact Colon and Rectal Surgery Diagnoses Anal fissure External hemorrhoids Reinaldo Beltran PA-C [facility] [address] [place] [address] Referral ID Status Reason Start Date Expiration Date V isits Requested Visits Authorized [id number] Pending Review 12/28/2023 12/27/2024 1 1 Question Answer Reason for Referral: Anal Fissure Special Concerns: Other My Clinical Question Is: Anal fissure, taking Apixaban Scheduling Instructions: [facility] will call you to coordinate care as prescribed your provider. If you don?t hear from a data entry representative within 2 business days, please call . Comments Please be aware that coverage of these services is subject to the terms and limitations of your health insurance plan. Call member services at your health plan with any benefit or coverage questions. [facility] will call you to coordinate care as prescribed your provider. If you don?t hear from a data entry representative within 2 business days, please call . Reason for Visit * Reason Comments Rectal Bleeding Encounter Details Date Type Department Care Team (Late st Contact Info) Description 12/28/2023 6:08 PM CDT - 12/29/2023 12:59 AM CDT Emergency [facility] Emergency Dept [address] [place] [address] Agustin Cesar MD [address] [place], [place] [id number] Anal fissure; External hemorrhoids Discharge Disposition: Jail Facility Social History Tobacco Use Types Packs/Day Years Used Date Smoking Tobacco: Never Smokeless Tobacco: Never Alcohol Use Standard Drinks/Week Comments Not Currently 0 (1 standard drink = 0.6 oz pur e alcohol) Adolescent Education Answer Date Record ed Getting School Help Needed Not on file 02/13 Sex and Gender Information Value Date Recorded Sex Assigned at Not on file Gender Identity Not on file Sexual Orientation Choose not to disclose 2021 8:14 AM 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 The bleeding you noted on your sheet is caused by an anal fissure and by an external hemorrhoid. I have placed a referral to colorectal surgery, they should be calling you within the next 1 to 2 weeks. While you are waiting for them to call you you may apply Anusol ointment and topical nitroglycerin ointment to your anus twice daily. Please return to the emergency department if you experience fever or chills, dizziness, increased bleeding, or any other concern. Discharge Instructions Gastrointestinal (GI) Bleeding You have been seen today because of gastrointestinal (GI) bleeding, bleeding somewhere along your digestive tract. Most common symptoms are blood in the stool or when you have a bowel movement. The most common causes of minor GI bleeding are ulcers and hemorrhoids. Other conditions that cause bleeding include abnormal blood vessels in your GI tract, diverticulosis, inflammatory bowel disease, andcancer. Fortunately, many cases of GI bleeding are not immediately life-threatening and it does notappear that your bleeding is serious enough to require admission to the hospital. Generally, every Emergency Department visit should have a follow-up clinic visit with either a primary or a specialty clinic/provider. Please follow-up as instructed by your emergency provider today. Return to the Emergency Department right away if you: Develop fever with a temperature above 100.4?F. Vomit (throw up) blood or something that looks like coffee grounds. Have a bowel movement that looks like tar or has a large amount of blood in it. Feel weak, light-headed, or faint. Have a racing heartbeat. Have abdominal (belly) pain that is new or increasing. Have new symptoms that worry you. At your follow up, your regular provider or GI specialist may order further testing such as: Blood and stool tests. Endoscopy and/or colonoscopy, where a tube with a camera is used to look at your digestive tract. Other very specialized tests depending on your symptoms. What can I do to help myself? Take any acid reducing medication prescribed by your provider. Avoid over the counter medications such as aspirin and Advil?, Motrin? (ibuprofen) that can thin your blood or irritate your stomach, making ulcers worse. If you were given a prescription for medicine here today, be sure to read all of the information (including the package insert) that comes with your prescription. This will include important information about the medicine, its side effects, and any warnings that you need to know about. The pharmacist who fills the prescription can provide more information and answer questions you may have about the medicine. If you have questions or concerns that the pharmacist cannot address, please call or return to the Emergency Department. Remember that you can always come back to the Emergency Department if you are not able to see your regular provider in the amount of time listed above, if you get any new symptoms, or if there is anything that worries you. documented in this encounter Medications at Time of Discharge Medication Sig Dispensed Refills Start Date End Date hydrocortisone, Perianal, (HYDROCORTISONE) 2.5 % cream Place rectally 2 times daily as needed for hemorrhoids 30 g 12/28/2023 01/04/2024 nitroGLYcerin 0.2% ointment Apply 1 click (0.25 g) topically 2 times daily for 7 days 4 g 12/28/2023 01/04/2024 acetaminophen (TYLENOL) 500 MG tablet Take 500 mg by mouth 3 times daily albuterol (PROAIR HFA/PROVENTIL HFA/VENTOLIN HFA) 108 (90 Base) MCG/ACT inhaler Inhale 2 puffs into the lungs every 4 hours as needed for shortness of breath, wheezing or cough amLODIPine (NORVASC) 10 MG tablet Take 10 mg by mouth every morning apixaban ANTICOAGULANT (ELIQUIS) 5 MG tablet Take 5 mg by mouth 2 times daily ARIPiprazole (ABILIFY) 15 MG tablet Take 7.5 mg by mouth daily aspirin 81 MG EC tablet Take 81 mg by mouth every morning carBAMazepine (TEGRETOL) 200 MG tablet Take 200 mg by mouth 2 times daily carvedilol (COREG) 25 MG tablet Take 25 mg by mouth daily chlorthalidone (HYGROTON) 25 MG tablet Take 25 mg by mouth daily cholecalciferol (VITAMIN D3) 1250 mcg (76717 units) capsule Take 1,250 mcg by mouth every 7 days on Wednesdays. clotrimazole (LOTRIMIN) 1 % external cream Apply topically 2 times daily Apply topically to feet and in between toes, groin, periarea, and abdomen areas 2 times daily. diphenhydrAMINE (BENADRYL) 50 MG capsule Take 50 mg by mouth every 6 hours as needed for itching or allergies ezetimibe (ZETIA) 10 MG tablet Take 10 mg by mouth daily fluconazole (DIFLUCAN) 150 MG tablet Take 150 mg by mouth twice a week on Tuesdays and Fridays hydrALAZINE (APRESOLINE) 50 MG tablet Take 50 mg by mouth 4 times daily Icosapent Ethyl 1 g CAPS Take 2 capsules by mouth 2 times daily (with meals) insulin detemir (LEVEMIR PEN) 100 UNIT/ML pen Inject 30 Units Subcutaneous 2 times daily 9AM and 9PM insulin reg HIGH CONC (HUMULIN R U-500 HIGH CONC) 500 Units/mL injection Inject 100 Units Subcutaneous 3 times daily at AM, midday, PM isosorbide mononitrate (IMDUR) 60 MG 24 hr tabletIndications:Ches t pain, unspecified type Take 1 tablet (60 mg) by mouth daily 30 tablet 1 12/18/2022 ketoconazole (NIZORAL) 2 % external shampoo Apply topically every 3 days Apply topically to affected areas topically with showers loperamide (IMODIUM) 2 MG capsule Take 2 mg by mouth 4 times daily as needed for diarrhea metoprolol succinate ER (TOPROL XL) 200 MG 24 hr tablet Take 200 mg by mouth daily nystatin (MYCOSTATIN) 036302 UNIT/GM external powder Apply topically 2 times daily as needed to abdominal folds under breasts and left side of groin. pantoprazole (PROTONIX) 40 MG EC tablet Take 40 mg by mouth every morning polyethylene glycol (MIRALAX) 17 GM/Dose powder Take 17 g by mouth daily potassium chloride ER (K-TAB) 20 MEQ CR tablet Take 20 mEq by mouth 2 times daily pravastatin (PRAVACHOL) 80 MG tablet Take 80 mg by mouth At Bedtime pregabalin (LYRICA) 100 MG capsule Take 100 mg by mouth every morning pregabalin (LYRICA) 150 MG capsule Take 150 mg by mouth every evening semaglutide (OZEMPIC, 0.25 OR 0.5 MG/DOSE,) 2 MG/3ML pen Inject 0.5 mg Subcutaneous every 7 days on . sennosides (SENOKOT) 8.6 MG tablet Take 1 tablet by mouth daily torsemide (DEMADEX) 20 MG tablet Take 20 mg by mouth 2 times daily venlafaxine (EFFEXOR-XR) 75 MG 24 hr capsule Take 225 mg by mouth daily documented as of this encounter ED Notes * Agustin Cesar MD - 12/28/2023 7:11 PM CDT History Chief Complaint: Rectal Bleeding HPI Leonid Leahy is a 63 year old male who presents with blood per rectum. He had an episode of blood in his bed sheets yesterday and then again on the toilet. He is not having abdominal pain or lightheadedness. He is anticoagulated. He denies note that he has had pain in the anus and with bowel movements recently. No hematemesis. No recent colonoscopy. Independent Historian: EMS who contribute to the above history. Medications: hydrocortisone, Perianal, (HYDROCORTISONE) 2.5 % cream nitroGLYcerin 0.2% ointment acetaminophen (TYLENOL) 500 MG tablet albuterol (PROAIR HFA/PROVENTIL HFA/VENTOLIN HFA) 108 (90 Base) MCG/ACT inhaler amLODIPine (NORVASC) 10 MG tablet apixaban ANTICOAGULANT (ELIQUIS) 5 MG tablet ARIPiprazole (ABILIFY) 15 MG tablet aspirin 81 MG EC tablet carBAMazepine (TEGRETOL) 200 MG tablet carvedilol (COREG) 25 MG tablet chlorthalidone (HYGROTON) 25 MG tablet cholecalciferol (VITAMIN D3) 1250 mcg (42785 units) capsule clotrimazole (LOTRIMIN) 1 % external cream diphenhydrAMINE (BENADRYL) 50 MG capsule ezetimibe (ZETIA) 10 MG tablet fluconazole (DIFLUCAN) 150 MG tablet hydrALAZINE (APRESOLINE) 50 MG tablet Icosapent Ethyl 1 g CAPS insulin detemir (LEVEMIR PEN) 100 UNIT/ML pen insulin reg HIGH CONC (HUMULIN R U-500 HIGH CONC) 500 Units/mL injection isosorbide mononitrate (IMDUR) 60 MG 24 hr tablet ketoconazole (NIZORAL) 2 % external shampoo loperamide (IMODIUM) 2 MG capsule metoprolol succinate ER (TOPROL XL) 200 MG 24 hr tablet nystatin (MYCOSTATIN) 461140 UNIT/GM external powder pantoprazole (PROTONIX) 40 MG EC tablet polyethylene glycol (MIRALAX) 17 GM/Dose powder potassium chloride ER (K-TAB) 20 MEQ CR tablet pravastatin (PRAVACHOL) 80 MG tablet pregabalin (LYRICA) 100 MG capsule pregabalin (LYRICA) 150 MG capsule semaglutide (OZEMPIC, 0.25 OR 0.5 MG/DOSE,) 2 MG/3ML pen sennosides (SENOKOT) 8.6 MG tablet torsemide (DEMADEX) 20 MG tablet venlafaxine (EFFEXOR-XR) 75 MG 24 hr capsule Past Medical History: Past Medical History: Diagnosis Date Anemia of chronic renal failure Chronic kidney disease Deep vein thrombosis Depressive disorder DISH (diffuse idiopathic skeletal hyperostosis) Epilepsy Essential hypertriglyceridemia Gout Hypertension Obesity TASHI (obstructive sleep apnea) Type 2 diabetes mellitus Past Surgical History: Past Surgical History: Procedure Laterality Date CHOLECYSTECTOMY Physical Exam Patient Vitals for the past 24 hrs: BP Temp Temp src Pulse Resp SpO2 12/28/23 1900 -- -- -- -- -- 98 % 12/28/23 1850 -- -- -- -- -- 96 % 12/28/23 1845 -- -- -- -- -- 96 % 12/28/23 1840 -- -- -- -- -- 95 % 12/28/23 1835 -- -- -- -- -- 96 % 12/28/23 1830 135/68 -- -- 74 -- 97 % 12/28/23 1825 -- -- -- -- -- 97 % 12/28/23 1820 -- -- -- -- -- 96 % 12/28/23 1815 129/59 -- -- 74 -- 96 % 12/28/23 1811 124/65 98.1 ?F (36.7 ?C) Oral 77 17 96 % Physical Exam Constitutional: General: He is not in acute distress. Appearance: Normal appearance. He is not toxic-appearing. HENT: Head: Atraumatic. Eyes: General: No scleral icterus. Conjunctiva/sclera: Conjunctivae normal. Cardiovascular: Rate and Rhythm: Normal rate and regular rhythm. Heart sounds: Normal heart sounds. Pulmonary: Effort: Pulmonary effort is normal. No respiratory distress. Breath sounds: Normal breath sounds. Abdominal: Palpations: Abdomen is soft. Tenderness: There is no abdominal tenderness. Genitourinary: Penis: Normal. Testes: Normal. Comments: There is hemorrhoid at the left anal verge externally. No thrombosis or active bleeding. There is an anal fissure at the right anal verge. There is a scant amount of oozing present. No internal hemorrhoid visualized on the anoscope exam. Musculoskeletal: General: No deformity. Cervical back: Neck supple. Skin: General: Skin is warm. Capillary Refill: Capillary refill takes less than 2 seconds. Neurological: General: No focal deficit present. Mental Status: He is alert and oriented to person, place, and time. Emergency Department Course Laboratory: Labs Ordered and Resulted from Time of ED Arrival to Time of ED Departure COMPREHENSIVE METABOLIC PANEL - Abnormal Result Value Sodium 136 Potassium 3.7 Carbon Dioxide (CO2) 28 Anion Gap 14 Urea Nitrogen 22.7 Creatinine 1.28 (*) GFR Estimate 62 Calcium 8.6 (*) Chloride 94 (*) Glucose 292 (*) Alkaline Phosphatase 110 AST 21 ALT 15 Protein Total 6.8 Albumin 3.6 Bilirubin Total 0.3 CBC WITH PLATELETS AND DIFFERENTIAL - Abnormal WBC Count 5.9 RBC Count 4.56 Hemoglobin 13.4 Hematocrit 38.6 (*) MCV 85 MCH 29.4 MCHC 34.7 RDW 14.3 Platelet Count 164 % Neutrophils 53 % Lymphocytes 35 % Monocytes 7 % Eosinophils 4 % Basophils 0 % Immature Granulocytes 0 NRBCs per 100 WBC 0 Absolute Neutrophils 3.1 Absolute Lymphocytes 2.1 Absolute Monocytes 0.4 Absolute Eosinophils 0.2 Absolute Basophils 0.0 Absolute Immature Granulocytes 0.0 Absolute NRBCs 0.0 INR - Normal INR 1.01 PARTIAL THROMBOPLASTIN TIME - Normal aPTT 28 TYPE AND SCREEN, ADULT ABO/RH(D) A POS Antibody Screen Negative SPECIMEN EXPIRATION DATE [id number] ABO/RH TYPE AND SCREEN Emergency Department Course & Assessments: ED Course as of 12/28/231953Dec 28, 20231838 I evaluated and examined the patient 1902 Rectal exam with RN at bedside This patient is a 63-year-old who is anticoagulated with apixaban comes in the ED with blood on hisbed sheets. He says he was at another clinic yesterday but not have rectal exam. Had another episode of blood per rectum today. Hemoglobin actually is very stable over the course of the last few months. He is not having active bleeding and is hemodynamically stable. On exam by digital rectal exam an d anoscope he appears to have an external hemorrhoid that is not bleeding as well as an anal fissure with minimal oozing. He is appropriate for ongoing outpatient follow-up and will be referred to colorectal surgery. He was prescribed hydrocortisone and nitroglycerin topically. Disposition: The patient was discharged. Impression & Plan Diagnosis: ICD-10-CM 1. Anal fissure K60.2 Adult Colorectal Surgery Birthing Nurse Referral 2. External hemorrhoids K64.4 Adult Colorectal Surgery Birthing Nurse Referral Discharge Medications: New Prescriptions HYDROCORTISONE, PERIANAL, (HYDROCORTISONE) 2.5 % CREAM Place rectally 2 times daily as needed for hemorrhoids NITROGLYCERIN 0.2% OINTMENT Apply 1 click (0.25 g) topically 2 times daily for 7 days Agustin Cesar MD 12/28/231953 * Reinaldo Beltran PA-C - 12/28/2023 6:32 PM CDT Emergency Department Note History of Present Illness Chief Complaint Rectal Bleeding HPI Leonid Leahy is a 63 year old male with history of epilepsy, DM2, CKD, hypertension, VTE takes apixaban who presents with complaint of rectal bleeding. Patient states he had perirectal pain yesterday, he went to a clinic in [place], he is unsure of what was done at the clinic, unsure of the di agnosis. This morning he awoke to find bright red blood on his sheets. He later found bright red blood on his underwear. Last bowel movement was 2 days ago, brown and well-formed, denies melena or bright red blood in the stool. He states rectal pain is gone today. He denies fever and chills, chest pain, abdominal pain, nausea and vomiting and diarrhea. Independent Historian None Review of External Notes 02/22/2023 ED visit for hyperglycemia Past Medical History Medical History and Problem List Past Medical History: Diagnosis Date Anemia of chronic renal failure Chronic kidney disease Deep vein thrombosis Depressive disorder DISH (diffuse idiopathic skeletal hyperostosis) Epilepsy Essential hypertriglyceridemia Gout Hypertension Obesity TASHI (obstructive sleep apnea) Type 2 diabetes mellitus Medications hydrocortisone, Perianal, (HYDROCORTISONE) 2.5 % cream nitroGLYcerin 0.2% ointment acetaminophen (TYLENOL) 500 MG tablet albuterol (PROAIR HFA/PROVENTIL HFA/VENTOLIN HFA) 108 (90 Base) MCG/ACT inhaler amLODIPine (NORVASC) 10 MG tablet apixaban ANTICOAGULANT (ELIQUIS) 5 MG tablet ARIPiprazole (ABILIFY) 15 MG tablet aspirin 81 MG EC tablet carBAMazepine (TEGRETOL) 200 MG tablet carvedilol (COREG) 25 MG tablet chlorthalidone (HYGROTON) 25 MG tablet cholecalciferol (VITAMIN D3) 1250 mcg (45028 units) capsule clotrimazole (LOTRIMIN) 1 % external cream diphenhydrAMINE (BENADRYL) 50 MG capsule ezetimibe (ZETIA) 10 MG tablet fluconazole (DIFLUCAN) 150 MG tablet hydrALAZINE (APRESOLINE) 50 MG tablet Icosapent Ethyl 1 g CAPS insulin detemir (LEVEMIR PEN) 100 UNIT/ML pen insulin reg HIGH CONC (HUMULIN R U-500 HIGH CONC) 500 Units/mL injection isosorbide mononitrate (IMDUR) 60 MG 24 hr tablet ketoconazole (NIZORAL) 2 % external shampoo loperamide (IMODIUM) 2 MG capsule metoprolol succinate ER (TOPROL XL) 200 MG 24 hr tablet nystatin (MYCOSTATIN) 861126 UNIT/GM external powder pantoprazole (PROTONIX) 40 MG EC tablet polyethylene glycol (MIRALAX) 17 GM/Dose powder potassium chloride ER (K-TAB) 20 MEQ CR tablet pravastatin (PRAVACHOL) 80 MG tablet pregabalin (LYRICA) 100 MG capsule pregabalin (LYRICA) 150 MG capsule semaglutide (OZEMPIC, 0.25 OR 0.5 MG/DOSE,) 2 MG/3ML pen sennosides (SENOKOT) 8.6 MG tablet torsemide (DEMADEX) 20 MG tablet venlafaxine (EFFEXOR-XR) 75 MG 24 hr capsule Surgical History Past Surgical History: Procedure Laterality Date CHOLECYSTECTOMY Physical Exam Patient Vitals for the past 24 hrs: BP Temp Temp src Pulse Resp SpO2 12/28/23 1900 -- -- -- -- -- 98 % 12/28/23 1850 -- -- -- -- -- 96 % 12/28/23 1845 -- -- -- -- -- 96 % 12/28/23 1840 -- -- -- -- -- 95 % 12/28/23 1835 -- -- -- -- -- 96 % 12/28/23 1830 135/68 -- -- 74 -- 97 % 12/28/23 1825 -- -- -- -- -- 97 % 12/28/23 1820 -- -- -- -- -- 96 % 12/28/23 1815 129/59 -- -- 74 -- 96 % 12/28/23 1811 124/65 98.1 ?F (36.7 ?C) Oral 77 17 96 % Physical Exam Physical Exam: GENERAL: Warm, dry, alert, no increased work of breathing HEENT: PERRLA, clear conjunctiva, oropharynx clear NECK: No JVD, supple without lymphadenopathy. No stiffness or restricted range of motion HEART: Regular rate and rhythm, no murmur or rubs LUNGS: CTAB, moving air well. No crackles or wheezes are heard. ABD: Soft, nontender, nondistended, no guarding, with good bowel sounds heard. BACK: No CVAT, no obvious deformities RECTAL: Right lateral side has anal fissure oozing bright red blood, external hemorrhoid at left anal verge does not appear thrombosed or bleeding, anoscope exam no internal bleeding hemorrhoids appreciated EXTREMITIES: Moves all extremities without difficulty, no calf tenderness or peripheral edema. SKIN: Warm and dry without rash or lesions. NEUROLOGICAL: No focal deficits. PSYCH: Appropriate mood and affect. Diagnostics Lab Results Labs Ordered and Resulted from Time of ED Arrival to Time of ED Departure COMPREHENSIVE METABOLIC PANEL - Abnormal Result Value Sodium 136 Potassium 3.7 Carbon Dioxide (CO2) 28 Anion Gap 14 Urea Nitrogen 22.7 Creatinine 1.28 (*) GFR Estimate 62 Calcium 8.6 (*) Chloride 94 (*) Glucose 292 (*) Alkaline Phosphatase 110 AST 21 ALT 15 Protein Total 6.8 Albumin 3.6 Bilirubin Total 0.3 CBC WITH PLATELETS AND DIFFERENTIAL - Abnormal WBC Count 5.9 RBC Count 4.56 Hemoglobin 13.4 Hematocrit 38.6 (*) MCV 85 MCH 29.4 MCHC 34.7 RDW 14.3 Platelet Count 164 % Neutrophils 53 % Lymphocytes 35 % Monocytes 7 % Eosinophils 4 % Basophils 0 % Immature Granulocytes 0 NRBCs per 100 WBC 0 Absolute Neutrophils 3.1 Absolute Lymphocytes 2.1 Absolute Monocytes 0.4 Absolute Eosinophils 0.2 Absolute Basophils 0.0 Absolute Immature Granulocytes 0.0 Absolute NRBCs 0.0 INR - Normal INR 1.01 PARTIAL THROMBOPLASTIN TIME - Normal aPTT 28 TYPE AND SCREEN, ADULT ABO/RH(D) A POS Antibody Screen Negative SPECIMEN EXPIRATION DATE [id number] ABO/RH TYPE AND SCREEN Imaging No orders to display Independent Interpretation None ED Course Medications Administered Medications - No data to display Procedures Procedures Discussion of Management Staffed with Dr. Cesar ED Course ED Course as of 12/28/231936Dec 28, 20231838 I evaluated and examined the patient 1902 Rectal exam with RN at bedside Additional Documentation None Medical Decision Making / Diagnosis [facility] Diagnoses: None MIPS None [facility] Leonid Leahy is a 63 year old male with history of epilepsy, DM2, CKD, hypertension, VTE takes apixaban who presents with complaint of rectal bleeding. Differential includes but is not limited to upper GI bleed, lower GI bleed, colitis, diverticulitis, internal hemorrhoid, external hemorrhoid, and anal fissure among many others. Vital signs reassuring at presentation without tachycardia, fever, hypoxia, and he was normotensive. On physical exam, he was generally well-appearing, rectal exam described above. Briefly, he has a nonthrombosed external hemorrhoid and an anal fissure oozing bright red blood. The nonthrombosed hemorrhoid was most likely the cause of the pain yesterday and the anal fissure is most likely the cause of the blood found on his sheets this morning. On laboratory workup, there was no leukocytosis nor anemia, coagulation studies were within normal limits. His hemoglobin remained stable from laboratory studies 2 months ago. Patient's creatinine was elevated howeverhe is at baseline given previous history of CKD. I discussed these findings with the patient and recommended a course of topical nitroglycerin and steroids as well as a follow-up appointment with colorectal surgery. He states he agrees, he requests instructions to be sent to his assisted living facility to assist him with applying ointment to his anus. A referral was also placed to colorectal surgery. The patient was subsequently discharged in stable condition. Disposition The patient was discharged. Diagnosis ICD-10-CM 1. Anal fissure K60.2 Adult Colorectal Surgery Birthing Nurse Referral 2. External hemorrhoids K64.4 Adult Colorectal Surgery Birthing Nurse Referral Discharge Medications New Prescriptions HYDROCORTISONE, PERIANAL, (HYDROCORTISONE) 2.5 % CREAM Place rectally 2 times daily as needed for hemorrhoids NITROGLYCERIN 0.2% OINTMENT Apply 1 click (0.25 g) topically 2 times daily for 7 days KRISTA Kuhn John, PA-C 12/28/231937 * Tessy Dixon RN - 12/28/2023 6:09 PM CDT Pt arrives via EMS for rectal bleeding. Pt noted blood in sheets and toilet. Per EMS pt has been bearing down more while having bowel movements. Pt comes from assisted living facility in [place]. * Tamiko Monzon RN - 12/28/2023 6:08 PM CDT Bed: ED01 Expected date: Expected time: Means of arrival: Comments: [id number] documented in this encounter Plan of Treatment Scheduled Referrals Name Type Priority Associated Diagnoses Orde r Schedule Adult Colorectal Surgery Birthing Nurse Referral Referral Priority: 1-2 Weeks Anal fissure External hemorrhoids Expected: 12/28/2023 (Approximate), Expires: 12/27/2024 documented as of this encounter Procedures Procedure Name Priority Date/Time Associated Diagnosis Comments CBC WITH PLATELETS AND DIFFERENTIAL STAT 12/28/2023 6:41 PM CDT TYPE AND SCREEN, ADULT STAT 6:41 PM CDT CBC WITH PLATELETS & DIFFERENTIAL STAT 12/28/2023 6:41 PM CDT INR STAT 12/28/2023 6:41 PM CDT PARTIAL THROMBOPLASTIN TIME STAT 12/28/2023 6:41 PM CDT COMPREHENSIVE METABOLIC PANEL STAT 12/28/2023 6:41 PM CDT ABO/RH TYPE AND SCREEN STAT 6:41 PM CDT documented in this encounter Results * Adult Type and Screen (12/28/2023 6:41 PM CDT) ABO/RH(D) A POS 12/28/2023 6:28 PM CDT RH BLOOD BANK Antibody Screen Negative Negative 12/28/2023 6:28 PM CDT RH BLOOD BANK SPECIMEN EXPIRATION DATE [id number] 12/28/2023 6:28 PM CDT RH BLOOD BANK Blood STRUCTURE OF RIGHT UPPER LIMB / Unknown Venipuncture / Unknown 12/28/2023 6:41 PM CDT 12/28/2023 6:46 PM CDT Agustin Cesar MD LAB - BLOOD BAN K TEST ORDER BLOOD BANK [address] [place] [address], [facility] * (ABNORMAL) CBC with platelets and differential (12/28/2023 6:41 PM CDT) WBC Count 5.9 4.0 - 11.0 10e3/uL 12/28/2023 6:48 PM CDT [facility] RBC Count 4.56 4.40 - 5.90 10e6/uL 12/28/2023 6:48 PM CDT [facility] Hemoglobin 13.4 13.3 - 17.7 g/dL 12/28/2023 6:48 PM CDT [facility] Hematocrit 38.6(L) 40.0 - 53.0 % 12/28/2023 6:48 PM CDT [facility] MCV 85 78 - 100 fL 12/28/2023 6:48 PM CDT [facility] MCH 29.4 26.5 - 33.0 pg 12/28/2023 6:48 PM CDT [facility] MCHC 34.7 31.5 - 36.5 g/dL 12/28/2023 6:48 PM CDT [facility] RDW 14.3 10.0 - 15.0 % 12/28/2023 6:48 PM CDT [facility] Platelet Count 164 150 - 450 10e3/uL 12/28/2023 6:48 PM CDT [facility] % Neutrophils 53 % 12/28/2023 6:48 PM CDT [facility] % Lymphocytes 35 % 12/28/2023 6:48 PM CDT [facility] % Monocytes 7 % 12/28/2023 6:48 PM CDT [facility] % Eosinophils 4 % 12/28/2023 6:48 PM CDT [facility] % Basophils 0 % 12/28/2023 6:48 PM CDT [facility] % Immature Granulocytes 0 % 12/28/2023 6:48 PM CDT [facility] NRBCs per 100 WBC 0 <1 /100 024 6:48 PM CDT [facility] Absolute Neutrophils 3.1 1.6 - 8.3 10e3/uL 12/28/2023 6:48 PM CDT [facility] Absolute Lymphocytes 2.1 0.8 - 5.3 10e3/uL 12/28/2023 6:48 PM CDT [facility] Absolute Monocytes 0.4 0.0 - 1.3 10e3/uL 12/28/2023 6:48 PM CDT [facility] Absolute Eosinophils 0.2 0.0 - 0.7 10e3/uL 12/28/2023 6:48 PM CDT [facility] LAB[facility] Absolute Basophils 0.0 0.0 - 0.2 10e3/uL 12/28/2023 6:48 PM CDT [facility] Absolute Immature Granulocytes 0.0 <=0.4 10e3/uL 12/28/2023 6:48 PM CDT [facility] Absolute NRBCs 0.0 10e3/uL 12/28/2023 6:48 PM CDT [facility] Blood STRUCTURE OF RIGHT UPPER LIMB / Unknown Venipuncture / Unknown 12/28/2023 6:41 PM CDT 12/28/2023 6:46 PM CDT Agustin Cesar MD LAB - BLOOD ORD ERABLES [facility] LABORATORY [facility] [address] [facility] Lab (1st floor, no room number) [place] [address], [facility] * (ABNORMAL) Comprehensive metabolic panel (12/28/2023 6:41 PM CDT) Sodium 136 135 - 145 mmol/L 12/28/2023 7:09 PM CDT [facility] Potassium 3.7 3.4 - 5.3 mmol/L 12/28/2023 7:09 PM CDT [facility] Carbon Dioxide (CO2) 28 22 - 29 mmol/L 12/28/2023 7:09 PM CDT [facility] Anion Gap 14 7 - 15 mmol/L 12/28/2023 7:09 PM CDT [facility] Urea Nitrogen 22.7 8.0 - 23.0 mg/dL 12/28/2023 7:09 PM CDT [facility] Creatinine 1.28(H) 0.67 - 1.17 mg/dL 12/28/2023 7:09 PM CDT [facility] GFR Estimate 62 >60 mL/min/1.7 3m2 12/28/2023 7:09 PM CDT [facility] Comment:eGFR calculated usin 2020 CKD-EPI equation. Calcium 8.6(L) 8.8 - 10.4 mg/dL 12/28/2023 7:09 PM CDT [facility] Comment:Reference intervals for this test were updated on 11/30/2023 to reflect our healthy population more accurately. There may be differences in the flagging of prior results with similar values performed with this method. Those prior results can be interpreted in the context of the updated reference intervals. Chloride 94(L) 98 - 107 mmol/L 12/28/2023 7:09 PM CDT [facility] Glucose 292(H) 70 - 99 mg/dL 12/28/2023 7:09 PM CDT [facility] Alkaline Phosphatase 110 40 - 150 U/L 12/28/2023 7:09 PM CDT [facility] AST 21 0 - 45 U/L 12/28/2023 7:09 PM CDT [facility] ALT 15 0 - 70 U/L 12/28/2023 7:09 PM CDT [facility] Protein Total 6.8 6.4 - 8.3 g/dL 12/28/2023 7:09 PM CDT [facility] Albumin 3.6 3.5 - 5.2 g/dL 12/28/2023 7:09 PM CDT [facility] Bilirubin Total 0.3 <=1.2 mg/dL 12/28/2023 7:09 PM CDT [facility] Blood STRUCTURE OF RIGHT UPPER LIMB / Unknown Venipuncture / Unknown 12/28/2023 6:41 PM CDT 12/28/2023 6:46 PM CDT Agustin Cesar MD LAB - BLOOD ORD ERABLES [facility] Lab [address] Lab (1st floor, no room number) [place] [phone] [place] [address] * Partial thromboplastin time (12/28/2023 6:41 PM CDT) aPTT 28 22 - 38 Seconds 12/28/2023 7:00 PM CDT [facility] LAB[facility]ATORY Blood STRUCTURE OF RIGHT UPPER LIMB / Unknown Venipuncture / Unknown 12/28/2023 6:41 PM CDT 12/28/2023 6:46 PM CDT Agustin Cesar MD LAB - BLOOD ORD ERABLES [facility] [address] Lab (1st floor, no room number) [place] [phone] [place] [address] * INR (12/28/2023 6:41 PM CDT) INR 1.01 0.85 - 1.15 12/28/2023 7:00 PM CDT [facility] LAB[facility]ATORY Blood STRUCTURE OF RIGHT UPPER LIMB / Unknown Venipuncture / Unknown 12/28/2023 6:41 PM CDT 12/28/2023 6:46 PM CDT Agustin Cesar MD LAB - BLOOD ORD ERABLES RH LABORATORY [facility] [address] Lab (1st floor, no room number) [place] [address], [facility] documented in this encounter Visit Diagnoses Diagnosis Anal fissure External hemorrhoids External hemorrhoids without mention of complication documented in this encounter Care Teams Software Design Manager Relationship Specialty Start Date End Date Services, [facility] Physician [address] [place] [phone] PCP - General 05/22/21 Prince Tobar MD [address] [place] [address] [phone] Cardiovascular Disease 03/26/22 Prince Tobar MD [address] [place] [address] [phone] Assigned Heart and Vascular Provider 05/30/22 documented as of this encounter
--- OUTSIDE RECORDS SUMMARY | 2023-12-29 23:14 | XMS_ITS | Clinical Summary ---
Author Organization [place] Address [address] [place] [address] Care Team Providers Care Development Educator Name Role Phone Services, [facility] Physician Primary Care Provi sadia Prince Tobar [...] daily Active cholecalciferol (VITAMIN D3) 1250 mcg (93231 units) capsule Take 1,250 mcg by mouth every 7 days on Wednesdays. Active venlafaxine (EFFEXOR-XR) 75 MG 24 hr capsule Take 225 mg by mouth daily Active hydrALAZINE (APRESOLINE) 50 MG tablet Take 50 mg by mouth 4 times daily Active polyethylene glycol (MIRALAX) 17 GM/Dose powder Take 17 g by mouth daily Active nystatin (MYCOSTATIN) 426069 UNIT/GM external powder Apply topically 2 times [...] isosorbide mononitrate (IMDUR) 60 MG 24 hr tabletIndications:C hest pain, unspecified type Take 1 tablet (60 mg) by mouth daily 30 tablet 1 12/18/2022 Active nitroGLYcerin 0.2% ointment Apply 1 click (0.25 g) topically 2 times daily for 7 days 4 g 12/28/2023 01/04/2024 Active hydrocortisone, Perianal, (HYDROCORTISONE) 2.5 % cream Place rectally 2 times daily as needed for hemorrhoids 30 g 12/28/2023 01/04/2024 Active Active Problems Problem Noted Date Diagnosed Date Elevated troponin 12/16/2022 Chest pain, unspecified type 12/16/2022 Diabetes mellitus, type 2 05/26/2022 Morbid obesity 05/26/2022 Abdominal wall cellulitis 05/17/2021 Sepsis, due to unspecified o rganism, unspecified whether acute organ dysfunction present 05/17/2021 Persistent headaches 03/01/2013 Epilepsy 03/01/2013 Encounters Date Type Department Care Team Description 12/28/2023 6:08 PM CDT - 12/29/2023 12:59 AM CDT Emergency [facility] Emergency Dept [address] [place] [phone] Agustin Cesar MD Anal fissure; External hemorrhoids Discharge Disposition: Shelter Facility 12/28/2023 Travel from Last 3 Months Immunizations Name Administration Dates Next Due COVID-19 MONOVALENT 12+ (Pfizer) 06/25/2020,05/17 [id number] Novel Flu 05/07/2009 Hepatitis B, Adult 02/16/2014,10/12/2013, [...] Choose not to disclose 2021 8:14 AM DIETITIAN CONSULTANT Last Filed Vital Signs Vital Sign Reading Time Taken Comments Blood Pressure 162/72 12/29/2023 12:58 AM CDT Pulse 70 12/29/2023 12:58 AM CDT Temperature 36.7 ??C (98.1 ??F) 12/28/2023 6:11 PM CD T Respiratory Rate 18 12/29/2023 12:58 AM CDT [...] HIV SCREENING 09/13/1974 HEPATITIS C SCREENING 09/13/1977 MEDICARE ANNUAL WELLNESS VISIT 09/13/1977 Pneumococcal Vaccine: Pediatrics (0 to 5 Years) and At-Risk Patients (6 to 64 Years) (2 of 2 - PCV) 01/08/2006 01/08/2005 RSV VACCINE ( & 60+) (1 - 1-dose 60+ series) 2019 COVID-19 Vaccine (4 - 2022- season) 2023 04/03/2022, 06/25/2020, 06/04/2020 PHQ-2 (once per calendar year) 2023 A1C 01/15/2024 10/15/2023, 0806/2022, 05/17/2021 INFLUENZA VACCINE (#1) 2024 , 05/29/2021, 05/07/2020, Additional history exists BMP 12/27/2024 12/28/2023, 0505/2023, 02/22/2023, Additional history exists ADVANCE CARE PLANNING 06/02/2026 [...] Procedure Name Priority Date/Time Associated Diagnosis Comments ABO/RH TYPE AND SCREEN STAT 6:41 PM CDT CBC WITH PLATELETS & DIFFERENTIAL STAT 12/28/2023 6:41 PM CDT TYPE AND SCREEN, ADULT STAT 4 6:41 PM CDT CBC WITH PLATELETS AND DIFFERENTIAL STAT 12/28/2023 6:41 PM CDT COMPREHENSIVE METABOLIC PANEL STAT 12/28/2023 6:41 PM CDT PARTIAL THROMBOPLASTIN TIME STAT 12/28/2023 6:41 PM CDT INR STAT 12/28/2023 6:41 PM CDT CBC WITH PLATELETS & DIFFERENTIAL Routine 10/15/2023 3:13 PM CDT Hypertensive heart disease without heart failure Atherosclerotic heart disease of [place] coronary artery without angina pectoris Body mass index (BMI) 60.0-69.9, adult (H) Chronic kidney disease, unspecified COMPREHENSIVE METABOLIC PANEL Routine 10/15/2023 3:13 PM CDT Hypertensive heart disease without heart failure Atherosclerotic heart disease of [place] coronary artery without angina pectoris Body mass index (BMI) 60.0-69.9, adult (H) Chronic kidney disease, unspecified CBC WITH PLATELETS AND DIFFERENTIAL Routine 10/15/2023 3:13 PM CDT Hypertensive heart disease without heart failure Atherosclerotic heart disease of [place] coronary artery without angina pectoris Body mass index (BMI) 60.0-69.9, adult (H) Chronic kidney disease, unspecified VITAMIN D DEFICIENCY SCREENING Routine 10/15/2023 3:13 PM CDT Hypertensive heart disease without heart failure Atherosclerotic heart disease of [place] coronary artery without angina pectoris Body mass index (BMI) 60.0-69.9, adult (H) Chronic kidney disease, unspecified HEMOGLOBIN A1C Routine 10/15/2023 3:13 PM CDT Hypertensive heart disease without heart failure Atherosclerotic heart disease of [place] coronary artery without angina pectoris Body mass index (BMI) 60.0-69.9, adult (H) Chronic kidney disease, unspecified from Last 3 Months Results * (ABNORMAL) CBC with platelets and differential (12/28/2023 6:41 PM CDT) Only the most recent of2 resultswithin the time period is included. WBC Count 5.9 4.0 - 11.0 10e3/uL [...] Cesar MD LAB - BLOOD ORD ERABLES LABORATORY [facility] Lab [address] Lab (1st floor, no room number) [place] [address] * Adult Type and Screen (12/28/2023 6:41 PM CDT) ABO/RH(D) A POS 12/28/2023 6:28 PM CDT RH BLOOD BANK Antibody Screen Negative Negative 12/28/2023 6:28 PM CDT RH BLOOD BANK SPECIMEN EXPIRATION DATE [id number] 12/28/2023 6:28 PM CDT RH BLOOD BANK Blood STRUCTURE OF RIGHT UPPER LIMB / Unknown Venipuncture / Unknown 12/28/2023 6:41 PM CDT 12/28/2023 6:46 PM CDT Agustin Cesar MD LAB - BLOOD BAN K TEST ORDER RH BLOOD BANK [address] [place] [place] [address] * INR (12/28/2023 6:41 PM CDT) INR 1.01 0.85 - 1.15 12/28/2023 7:00 PM CDT RH LABORATORY Blood STRUCTURE OF RIGHT UPPER LIMB / Unknown Venipuncture / Unknown 12/28/2023 6:41 PM CDT 12/28/2023 6:46 PM CDT Agustin Cesar MD LAB - BLOOD ORD ERABLES [facility] Lab [address] Lab (1st floor, no room number) [place] [address] * Partial thromboplastin time (12/28/2023 6:41 PM CDT) aPTT 28 22 - 38 Seconds 12/28/2023 7:00 PM CDT LABORATORY Blood STRUCTURE OF RIGHT UPPER LIMB / Unknown Venipuncture / Unknown 12/28/2023 6:41 PM CDT 12/28/2023 6:46 PM CDT Agustin Cesar MD LAB - BLOOD ORD ERABRITTANY Performing Organization Address City/[facility]/ZIP Co de Phone Number [facility] [address] Lab (1st floor, no room number) [place] [address] * (ABNORMAL) Comprehensive metabolic panel (12/28/2023 6:41 PM CDT) Only the most recent of2 resultswithin the time period is included. Sodium 136 135 - 145 mmol/L 12/28/2023 7:09 PM CDT LABORATORY Potassium 3.7 3.4 - 5.3 mmol/L 12/28/2023 7:09 PM CDT RH LABORATORY Carbon Dioxide (CO2) 28 22 - 29 mmol/L 12/28/2023 7:09 PM CDT RH LABORATORY Anion Gap 14 7 - 15 mmol/L 12/28/2023 7:09 PM CDT RH LABORATORY Urea Nitrogen 22.7 8.0 - 23.0 mg/dL 12/28/2023 7:09 PM CDT RH LABORATORY Creatinine 1.28(H) 0.67 - 1.17 mg/dL 12/28/2023 7:09 PM CDT LABORATORY GFR Estimate 62 >60 mL/min/1.7 3m2 [...] Cesar MD LAB - BLOOD ORD ERABLES LABORATORY [facility] Lab [address] [facility] Lab (1st floor, no room number) [place] [address], [facility] * Vitamin D Deficiency (10/15/2023 3:13 PM CDT) Vitamin D, Total (25-Hydroxy) 32 20 - 50 ng/mL 10/17/2023 4:24 PM CDT [facility] Comment:optimum levels Blood BLOOD SPECIMEN / Unknown Client Draw / Unknown 10/15/2023 3:13 PM CDT 10/15/2023 4:25 PM CDT Narrative [facility] - 10/17/2023 4:24 PM CDT Season, race, dietary intake, and treatment affect the concentration of 91-nkgmczn-Riotyqn D. Values may decrease during winter months and increase during summer months. Vitamin D determination is routinely performed by an immunoassay specific for 25 hydroxyvitamin D3. ??If an individual is on vitamin D2(ergocalciferol) supplementation, please specify 25 OH vitamin D2 and D3 level determination by LCMSMS test VITD23. [facility] Arpit LAB - BLOOD ORDERABL ES [facility] [place] [facility] [address] [facility], Room [address] [address] * (ABNORMAL) Hemoglobin A1c (10/15/2023 3:13 PM CDT) Hemoglobin A1C 10.8(H) <5.7 % 10/15/2023 4:57 PM CDT [facility] LAB[facility]ATORY Comment: Normal <5.7% Prediabetes 5.7-6.4% ?? Diabetes 6.5% or higher Note: Adopted from ADA consensus guidelines. Blood BLOOD SPECIMEN / Unknown Client Draw / Unknown 10/15/2023 3:13 PM CDT 10/15/2023 4:25 PM CDT [facility] Putnam LAB - BLOOD ORDERABL ES LABORATORY [facility] Lab [address] Lab (1st floor, no room number) [place] [address], [facility] from Last 3 Months Advance Directives For more information, please contact: [phone] Documents on File Type Date Recorded Patient Group Practice Pediatrician Expl anation Advance Directives and Living Will [...] yissel nt/ legal decision maker Care Teams Development Educator Relationship Specialty Start Date End Date Services, [facility] Physician [address] [place] [phone] PCP - General 05/22/21 Prince Tobar MD [address] [place] [phone] Cardiovascular Disease 03/26/22 Prince Tobar MD [address] [place] [phone] Assigned Heart and Vascular Provider 05/30/22
--- OUTSIDE RECORDS SUMMARY | 2023-12-29 23:14 | XMS_ITS | Clinical Summary ---
Author Organization [facility] Address [address] [place] [address] Phone Care Team Providers Care Hydroelectric Plant Electrician Name Role Phone Mellisa Shirley PA-C Primary Care Provider [phone] Allergies Active Allergy Reactions Criticality Noted Date [...] 05/26/2021 Active cholecalciferol (VITAMIN D-3) 1.25 MG (70834 UT) capsule Take 1,250 mcg by mouth [...] age to complete this topic Care Teams Hydroelectric Plant Electrician Relationship Specialty Start Date End Date Mellisa Shirley PA-C PCP - General Physician Chest Painting And Sealing Supervisor 08/31/22
--- OUTSIDE RECORDS SUMMARY | 2023-12-29 23:14 | XMS_ITS | CCD ---
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 Physical Therapy Assistant Instructor Name Role Phone [place] INFORMATION ENGINEER-CHarrison Primary Care Provider Leona vailable [facility]pit INFORMATION ENGINEER-C, [facility] Chronic [facility] Management U navailable Summary Purpose DataExchange Insurance Providers Payer name Policy type / Coverage type Covered constitution party ID Effective Begin Date Effective End Date [place] [id number] Unknown Unknown [place] Medicare Part B [id number] Unknown Unknown Family history Sister Brittany Suggs [...] Usp 09/03/[address]: 3801093 Non-Smoker / No History of Smoking 09/02/[address]: 414619474 No Alcohol Consum ption 09/02/2020 Allergies, Adverse Reactions, Alerts Substance Reaction Codes Entered Date Inactivated Date Status * NO KNOWN FOOD ALLERGIES Unknown 07/13/2023 No Inactive Date Active LISINOPRIL RxNorm: 99532 02/12/2020 No Inactive Da te Active Metformin [...] E78. 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 [place] heart, angina presence unspecified ICD-10: I25.10 ICD-9: [...] immunization ICD-10: Z23 ICD-9: V03.89 02/10/2022 Resolved alf (current) use of insulin ICD-10: Z79.4 02/10 [...] Fill Instructions cephalexin 500 mg capsule RxNorm: 790190 Take 1 Capsule(s) Oral QID 12/17/19 24 Inactive cephalexin 500 mg capsule RxNorm: 681708 Take 1 Capsule(s) Oral QID 12/17/19 24 Inactive acetaminophen 500 mg tablet RxNorm: 335150 (MAX APAP:4GM/24HR) Take 1 Tablet(s) Oral TID as needed for pain 12/10/19 24 Active torsemide 20 mg tablet RxNorm: 060339 Take 1 Tablet(s) Oral QD 10/26/19 24 Inactive potassium chloride ER 20 mEq tablet,extended release RxNorm: 914611 Take 2 Tablet(s) Oral BID 10/26/19 24 025 Active torsemide 20 mg tablet RxNorm: 555502 Take 1 Tablet(s) Oral QD 10/26/19 24 024 Inactive potassium chloride ER 20 mEq tablet,extended release RxNorm: 972787 Take 2 Tablet(s) Oral BID 10/26/19 24 024 Inactive Artificial Tears (PF) 0.1 %-0.3 % drops in a dropperette RxNorm: 595778 Apply 1-2 Drop(s) Both eyes BID as needed 09/28/19 24 025 Active erythromycin 5 mg/gram (0.5 %) eye ointment RxNorm: 832417 Apply 1 Application Both eyes QHS every night at bedtime Instill ~1 cm ribbon into affected eye 09/28/19 24 024 Inactive Artificial Tears (PF) 0.1 %-0.3 % drops in a dropperette RxNorm: 863947 Apply 1-2 Drop(s) Both eyes BID as needed 09/28/19 24 024 Inactive erythromycin 5 mg/gram (0.5 %) eye ointment RxNorm: 726796 Apply 1 Application Both eyes QHS every night at bedtime Instill ~1 cm ribbon into affected eye 09/28/19 24 024 Inactive acetaminophen 500 mg tablet RxNorm: 212019 (MAX APAP:4GM/24HR) Take 1 Tablet(s) Oral TID as needed for pain 09/24/19 24 024 Inactive carvedilol 25 mg tablet RxNorm: 366025 Take 1 Tablet(s) Oral QD 09/08/19 24 No Stop Date Active pregabalin 100 mg capsule RxNorm: 715489 Take 1 Capsule(s) Oral QAM every morning 09/07/19 24 024 Active rosuvastatin 40 mg tablet RxNorm: 972549 Take 1 Tablet(s) Oral QPM every evening 07/13/19 24 No Stop Date Active ezetimibe 10 mg tablet RxNorm: 901734 Take 1 Tablet(s) Oral QD 07/13/19 24 No Stop Date Active bisacodyl 10 mg rectal suppository RxNorm: 622166 Insert 1 Suppository Rectal QD as needed 07/13/19 24 No Stop Date Active polyethylene glycol 3350 17 gram/dose oral powder RxNorm: 022628 Take 17 Gram(s) Oral BID as needed mix in 4-8ox water 07/13/19 24 No Stop Date Active ketoconazole 2 % shampoo RxNorm: 087666 Apply 1 Application Topical UD as directed 07/13/19 24 No Stop Date Active aripiprazole 15 mg tablet RxNorm: 897279 Take 1/2 Tablet(s) Oral QD 07/13/19 24 No Stop Date Active Ozempic 1 mg/dose (4 mg/3 mL) subcutaneous pen injector RxNorm: 6400238 Inject 1 Milligram(s) Subcutaneous QW once a week 07/13/19 24 No Stop Date Active Guaifenesin AC 10 mg-100 mg/5 mL oral liquid RxNorm: 447114 Take 10 Milliliter(s) Oral Q4H every four hours as needed 07/13/19 24 No Stop Date Active isosorbide mononitrate ER 60 mg tablet,extended release 24 hr RxNorm: 393010 Take 1 Tablet(s) Oral QD 07/13/19 24 No Stop Date Active ammonium lactate 12 % topical cream RxNorm: 280273 Apply 1 Application Topical BID 07/13/19 24 No Stop Date Active hydrocortisone 2.5 % topical cream RxNorm: 937391 Apply 1 Application Topical BID as needed 07/13/19 24 No Stop Date Active rosuvastatin 20 mg sprinkle capsule RxNorm: 0223752 Take 1 Capsule(s) Oral QD 07/13/19 24 No Stop Date Active Vascepa 1 gram capsule RxNorm: 2074230 Take 2 Capsule(s) Oral BID 07/13/19 24 No Stop Date Active venlafaxine ER 75 mg capsule,extended release 24 hr RxNorm: 429209 Take 3 Capsule(s) Oral QD 07/13/19 24 No Stop Date Active Basaglar KwikPen U-100 Insulin 100 unit/mL (3 mL) subcutaneous RxNorm: 2535236 Inject 30U SubQ twice daily 07/07/19 24 025 Active Please dispense one month supply. Basaglar KwikPen U-100 Insulin 100 unit/mL (3 mL) subcutaneous RxNorm: 8109352 Inject 30U SubQ twice daily 07/07/19 24 024 Inactive Please dispense one month supply. pregabalin 150 mg capsule RxNorm: 784404 Take 1 Capsule(s) Oral QHS every night at bedtime 07/05/19 24 024 Active pregabalin 150 mg capsule RxNorm: 228495 Take 1 Capsule(s) Oral QHS every night at bedtime 07/05/19 24 024 Inactive polyethylene glycol 3350 17 gram/dose oral powder RxNorm: 757454 Take 1 Packet Oral QD as needed (1 packet = 17g) mix with 4-8oz of liquid 06/15/19 24 024 Inactive bisacodyl 10 mg rectal suppository RxNorm: 437374 Insert one suppository per rectum once daily as needed for constipation 06/15/19 24 024 Inactive bisacodyl 10 mg rectal suppository RxNorm: 301023 Insert one suppository per rectum once daily as needed for constipation 06/15/19 24 024 Inactive pregabalin 100 mg capsule RxNorm: 279667 Take 1 Capsule(s) Oral QAM every morning 04/27/20 23 024 Inactive Levemir FlexPen 100 unit/mL (3 mL) solution subcutaneous insulin pen RxNorm: 546114 Inject 30 Unit(s) Subcutaneous BID 04/27/20 23 024 Inactive rosuvastatin 40 mg tablet RxNorm: 108758 Take 1 Tablet(s) Oral QPM every evening 04/16/20 024 Inactive D/C rosuvastatin 20mg venlafaxine ER 75 mg capsule,extended release 24 hr RxNorm: 860086 Take 3 Capsule(s) Oral QD 04/14/20 023 Inactive pregabalin 100 mg capsule RxNorm: 438523 Take 1 Capsule(s) Oral QAM every morning [...] meter clotrimazole 1 % topical cream RxNorm: 545453 Take apply topically to abdominal folds twice daily for 14 days 03/12/20 024 Inactive Ozempic 1 mg/dose (4 mg/3 mL) subcutaneous pen injector RxNorm: 4651093 Inject 1 Milligram(s) Subcutaneous QW once a week 03/11/20 023 Inactive rosuvastatin 20 mg tablet RxNorm: 780838 Take 1 Tablet(s) Oral QD 02/26/20 23 023 Inactive d/c pravastatin 80mg Ozempic 1 mg/dose (4 mg/3 mL) subcutaneous pen injector RxNorm: 0668610 Inject 1 Milligram(s) Subcutaneous QW once a week 02/20/20 23 023 Inactive pregabalin 150 mg capsule RxNorm: 406249 Take 1 Capsule(s) Oral HS at bed time 02/19/20 23 023 Inactive pregabalin 100 mg capsule RxNorm: 909133 Take 1 Capsule(s) Oral QAM every morning 02/18/20 23 023 Inactive venlafaxine ER 75 mg capsule,extended release 24 hr RxNorm: 272265 Take 3 Capsule(s) Oral QD 02/04/20 23 023 Inactive FreeStyle Chema 2 Sensor kit RxNorm: use as directed 02/04/20 23 023 Inactive FreeStyle Chema 2 Sensor kit RxNorm: use as directed 02/04/20 23 024 Inactive fluconazole 150 mg tablet RxNorm: 764770 Take 1 Tablet(s) Oral on day 3 and on day 6 02/03/20 024 Active chlorthalidone 25 mg tablet RxNorm: 764905 Take 1 Tablet(s) Oral QAM every morning 02/03/20 No Stop Date Active venlafaxine ER 150 mg capsule,extended release 24 hr RxNorm: 425210 Take 1 Capsule(s) Oral QD 02/03/20 23 023 Inactive acetaminophen 500 mg tablet RxNorm: 927800 1 TABLET ORALLY 3 TIMES DAILY (MAX APAP:4GM/24HR) 12/15/19 23 023 Inactive clotrimazole 1 % topical cream RxNorm: 447248 apply 1g topically to top of feet and in between toes BID 12/09/19 23 023 Inactive potassium chloride ER 20 mEq tablet,extended release RxNorm: 538319 Take 1 Tablet(s) Oral BID 12/09/19 23 024 Inactive d/c 20mEq once daily (sent from hospital) nystatin 100,000 unit/gram topical powder RxNorm: 042233 APPLY TO AFFECTED AREAS TOPICALLY 2 TIMES DAILY 11/21/19 23 024 Inactive Nystop 100,000 unit/gram topical powder RxNorm: 946721 Apply to abd folds, under breasts and L side of groin Topical BID x 14 days, then BID PRN 11/20/19 23 023 Inactive dx: yeast dermatitis [place] Ultra Strength 4 %-30 %-10 % topical cream RxNorm: 087251 Apply 1 Gram(s) Topical QID PRN to feet and legs for neuropathic pain 11/11/19 23 024 Inactive clotrimazole 1 % topical cream RxNorm: 014064 Apply 1/2 Gram(s) Topical BID Apply to affected areas of groin, periarea, and abdominal topically 2 times daily 11/10/19 23 023 Inactive hydrocortisone 2.5 % topical cream RxNorm: 493007 Apply 1/2 Gram(s) Topical BID as needed 11/10/19 024 Inactive Humulin R U-500 (Concentrated) Insulin 500 unit/mL subcutaneous soln RxNorm: 893171 Inject 100 Unit(s) Subcutaneous TID 10/07/19 024 Inactive Levemir FlexPen 100 unit/mL (3 mL) solution subcutaneous insulin pen RxNorm: 251256 Inject 30 Unit(s) Subcutaneous BID 10/07/19 023 Inactive Ozempic 0.25 mg or 0.5 mg (2 mg/3 mL) subcutaneous pen injector RxNorm: 0083250 Inject 1/2 Milligram(s) Subcutaneous QW once a week 10/07/19 024 Inactive aripiprazole 15 mg tablet RxNorm: 343925 1/2 TAB (7.5MG) ORALLY DAILY (DX:MAJOR DEPRESSIVE DISORDER) 09/23/19 23 023 Inactive Lancets,Thin 28 gauge RxNorm: Use 1 as directed QID 09/15/19 23 024 Inactive Accu-Chek Guide test strips RxNorm: Use 1 Test Strip QID 09/15/19 23 023 Inactive ok to substitute with any covered alternative test strip torsemide 20 mg tablet RxNorm: 363935 Take 1 Tablet(s) Oral BID 09/09/19 23 024 Inactive d/c once daily dosing carvedilol 25 mg tablet RxNorm: 523389 Take 1 Tablet(s) Oral QD 08/25/19 024 Inactive pregabalin 150 mg capsule RxNorm: 847747 1 Capsule(s) Oral HS at bed time 08/18/19 023 Inactive pregabalin 100 mg capsule RxNorm: 889572 1 Capsule(s) Oral QAM every morning 08/18/19 023 Inactive carvedilol 25 mg tablet RxNorm: 803175 1 Tablet(s) Oral QD 07/28/19 23 023 Inactive lisinopril 20 mg tablet RxNorm: 483235 Give 1 Tablet(s) Oral QD 07/28/19 23 023 Inactive Lyrica 150 mg capsule RxNorm: 188785 Take 1 Capsule(s) Oral QHS every night at bedtime 07/19/19 23 023 Inactive d/c 100mg dose Diflucan 150 mg tablet RxNorm: 523947 Take 1 Tablet(s) Oral QD repeat on day 3 and 6 07/19/19 23 023 Inactive pregabalin 100 mg capsule RxNorm: 212666 Take 1 Capsule(s) Oral QAM every morning 07/19/19 023 Inactive gatifloxacin 0.5 % eye drops RxNorm: 288324 Instill 1 Drop(s) as directed TID Instill 1 drop in to affected eye(s) starting 1 day prior to surgery and continue until gone (do not exceed 4 weeks). 07/13/19 23 023 Inactive carvedilol 25 mg tablet RxNorm: 886203 2 Tablet(s) Oral BID 07/13/19 23 023 Inactive Humulin R Regular U-100 Insulin 100 unit/mL injection solution RxNorm: 977739 85 Unit(s) Injection TID 07/13/19 23 023 Inactive ketorolac 0.5 % eye drops RxNorm: 280754 Instill 1 Drop(s) as directed QID Instill 1 drop into affected eye(s) 4 times daily starting 1 day prior to surgery and continue until gone (do not exceed 4 weeks). 07/13/19 23 023 Inactive Diflucan 150 mg tablet RxNorm: 868318 Take 1 Tablet(s) Oral QD repeat on day 3 and 6 06/30/19 23 023 Inactive Accu-Chek Guide test strips RxNorm: Use 1 Test Strip QID Use 1 test strip to monitor blood glucose 4 times daily and as needed. Dx:E11.42. 06/23/19 23 023 Inactive ok to substitute with any covered alternative test strip dextromethorphan-gu aifenesin 10 mg-100 mg/5 mL oral liquid RxNorm: 840742 Take 10 Milliliter(s) Oral every 4 hours as needed for cough 06/19/19 023 Inactive dextromethorphan-gu aifenesin 10 mg-100 mg/5 mL oral liquid RxNorm: 685798 Take 10 Milliliter(s) Oral every 4 hours as needed for cough 06/19/19 023 Inactive Lyrica 150 mg capsule RxNorm: 794805 Take 1 Capsule(s) Oral QHS every night at bedtime 06/18/19 023 Inactive d/c 100mg dose aripiprazole 15 mg tablet RxNorm: 613871 1/2 TAB (7.5MG) ORALLY DAILY (DX:MAJOR DEPRESSIVE DISORDER) 06/05/19 023 Inactive pregabalin 100 mg capsule RxNorm: 429871 1 Capsule(s) Oral QAM every morning 06/02/19 023 Inactive Banophen 50 mg capsule RxNorm: 3599759 Take 1 Capsule(s) Oral Q6H every 6 hours as needed 05/19/19 23 No Stop Date Active Novolog Flexpen U-100 Insulin aspart 100 unit/mL (3 mL) subcutaneous RxNorm: 2100180 Inject 10 Unit(s) Subcutaneous QHS every night at bedtime with nighttime snack 04/08/20 022 Inactive Novolog Flexpen U-100 Insulin aspart 100 unit/mL (3 mL) subcutaneous RxNorm: 9799184 Inject 42 Unit(s) Subcutaneous TID in addition to sliding scale 04/08/20 022 Inactive d/c 36u albuterol sulfate HFA 90 mcg/actuation aerosol inhaler RxNorm: 6119588 Take 2 Puff(s) Inhalation Q4H every four hours as needed as needed for SOB, cough, or wheezing 04/07/20 030 Active Banophen 50 mg capsule RxNorm: 2347680 Take 1 Capsule(s) Oral Q6H every 6 hours as needed 04/06/20 023 Inactive diphenhydramine 50 mg tablet RxNorm: 4310101 Take 1 Tablet(s) Oral Q6H every 6 hours as needed 04/06/20 22 022 Inactive diphenhydramine 50 mg tablet RxNorm: 7834153 1 Tablet(s) Oral Q6H every 6 hours as needed 04/06/20 22 022 Inactive Abilify 15 mg tablet RxNorm: 183207 1/2 Tablet(s) Oral QD 03/10/20 22 023 Inactive Shingrix (PF) 50 mcg/0.5 mL intramuscular suspension, kit RxNorm: 5396446 Administer 1/2 Milliliter(s) Intramuscular QD one time shingrix step 2 ( step 1 given 11/04/21) WITH needle - Nursing please administer upon arrival and once administered post a bridge message with date of administration, graphic illustrator, expiration date, and lot# so we can update [facility] 02/18/20 22 022 Inactive dispense with needle Shingrix (PF) 50 mcg/0.5 mL intramuscular suspension, kit RxNorm: 2176200 Administer 1/2 Milliliter(s) Intramuscular QD one time shingrix step 2 ( step 1 given 11/04/21) WITH needle - Nursing please administer upon arrival and once administered post a bridge message with date of administration, graphic illustrator, expiration date, and lot# so we can update [facility] 02/18/20 22 022 Inactive dispense with needle polyethylene glycol 3350 17 gram/dose oral powder RxNorm: 044512 Take 17=1 capful Gram(s) Oral QD mix with 4-8oz of liquid 01/08/20 22 023 Inactive take this in addition to BID prn order Lyrica 100 mg capsule RxNorm: 474490 Take 1 Capsule(s) Oral QAM every morning 01/08/20 22 022 Inactive d/c 50mg dose acetaminophen 500 mg tablet RxNorm: 050565 Take 1 Tablet(s) Oral TID 01/08/20 22 022 Inactive d/c PRN order Lyrica 150 mg capsule RxNorm: 684978 Take 1 Capsule(s) Oral QHS every night at bedtime 01/08/20 22 023 Inactive d/c 100mg dose Abilify 5 mg tablet RxNorm: 240099 Take 1 Tablet(s) Oral QD take 1 tab po QD #30 refill 5 dx: MDD 12/12/19 22 022 Inactive Abilify 5 mg tablet RxNorm: 888747 Take 1 Tablet(s) Oral QD take 1 tab po QD #30 refill 5 dx: MDD 12/12/19 22 022 Inactive Novolog Flexpen U-100 Insulin aspart 100 unit/mL (3 mL) subcutaneous RxNorm: 0164025 Inject 42 Unit(s) Subcutaneous TID in addition to sliding scale 12/10/19 22 022 Inactive d/c 36u chlorthalidone 25 mg tablet RxNorm: 662366 Take 1 Tablet(s) Oral QAM every morning 12/10/19 22 023 Inactive pregabalin 50 mg capsule RxNorm: 003024 Take 1 Capsule(s) Oral QAM every morning 11/12/19 22 022 Inactive tetanus-diphtheria toxoids-Td 2 Lf unit-2 Lf unit/0.5 mL IM suspension RxNorm: 139 Take 0.5 Miscellaneous Intramuscular 11/12/19 22 022 Inactive need tdap - nursing to administer upon arrival pregabalin 50 mg capsule RxNorm: 893652 Take 1 Capsule(s) Oral QAM every morning 10/16/19 22 022 Inactive pregabalin 50 mg capsule RxNorm: 643055 Take 1 Capsule(s) Oral QAM every morning 10/16/19 22 022 Inactive pregabalin 50 mg capsule RxNorm: 476668 1 Capsule(s) Oral QAM every morning 10/15/19 22 022 Inactive Shingrix (PF) 50 mcg/0.5 mL intramuscular suspension, kit RxNorm: 1024907 Administer 1/2 Milliliter(s) Intramuscular one time Nursing please administer upon arrival and once administered post a bridge message with date of administration, graphic illustrator, expiration date, and lot# so we can update [facility]. 10/09/19 22 022 Inactive shingrix step 1 Shingrix (PF) 50 mcg/0.5 mL intramuscular suspension, kit RxNorm: 9106836 Administer 1/2 Milliliter(s) Intramuscular one time Nursing please administer upon arrival and once administered post a bridge message with date of administration, graphic illustrator, expiration date, and lot# so we can update [facility]. 10/09/19 22 Inactive shingrix step 1 cholecalciferol (vitamin D3) 1,250 mcg (50,000 unit) capsule RxNorm: 887322 Take 1 Capsule(s) Oral QW once a [...] aspart 100 unit/mL (3 mL) subcutaneous RxNorm: 4365346 Inject 10 Unit(s) Subcutaneous QHS every night at bedtime with nighttime snack 10/08/19 22 Inactive Shingrix (PF) 50 mcg/0.5 mL intramuscular suspension, kit RxNorm: 6005161 ADMINISTER 2-DOSE SERIES PER CDC GUIDELINES 10/08/19 22 022 Active Shingrix (PF) 50 mcg/0.5 mL intramuscular suspension, kit RxNorm: 5750654 ADMINISTER 2-DOSE SERIES PER CDC GUIDELINES 10/08/19 22 022 Inactive Novolog Flexpen U-100 Insulin aspart 100 unit/mL (3 mL) subcutaneous RxNorm: 3106722 Inject 36 Unit(s) Subcutaneous TID in addition to sliding scale 10/08/19 22 Inactive Novofine Autocover 30 gauge x 1/3 needle RxNorm: Use 1 Miscellaneous UD as directed Use 1 needle as directed to administer insulin 5 times a day Dx:E11.42. 10/03/19 22 Inactive ok to substitute with any covered alternative pen needle benzoyl peroxide 10 % topical cleanser RxNorm: 321568 Apply 1 Application Topical QD apply to face, wash rinse and dry once daily (may change to QOD if drying) 08/19/19 22 022 Inactive (%covered by insurance) #60ml refill 11 dx: acne benzoyl peroxide 10 % topical cleanser RxNorm: 513391 Apply 1 Application Topical QD apply to face, wash rinse and dry once daily (may change to QOD if drying) 08/19/19 22 022 Inactive (%covered by insurance) #60ml refill 11 dx: acne benzoyl peroxide 10 % topical cleanser RxNorm: 637658 Apply 1 Application Topical QD apply to face, wash rinse and dry once daily (may change to QOD if drying) 08/19/19 22 022 Inactive (%covered by insurance) #60ml refill 11 dx: acne Lyrica 50 mg capsule RxNorm: 358377 Take 1 Capsule(s) Oral QAM every morning Take 1 capsule by mouth once daily 08/19/19 022 Inactive benzoyl peroxide 10 % topical cleanser RxNorm: 739106 Apply 1 Application Topical QD apply to face, wash rinse and dry once daily (may change to QOD if drying) 08/19/19 022 Inactive (%covered by insurance) #60ml refill 11 dx: acne Lyrica 100 mg capsule RxNorm: 487123 Take 1 Capsule(s) Oral QHS every night at bedtime Take 1 capsule by mouth once daily at bedtime 08/19/19 22 022 Inactive Lyrica 100 mg capsule RxNorm: 374572 Take 1 Capsule(s) Oral QHS every night at bedtime Take 1 capsule by mouth once daily at bedtime 08/16/19 22 Inactive Lyrica 50 mg capsule RxNorm: 260632 Take 1 Capsule(s) Oral QAM every morning Take 1 capsule by mouth once daily 08/16/19 22 022 Inactive Levemir FlexTouch U-100 Insulin 100 unit/mL (3 mL) subcutaneous pen RxNorm: 465906 Inject 86 Unit(s) Subcutaneous BID 08/05/19 22 022 Inactive d/c 83units BID Lyrica 100 mg capsule RxNorm: 562743 Take 1 Capsule(s) Oral QHS every night at bedtime Take 1 capsule by mouth once daily at bedtime 07/14/19 22 Inactive Lyrica 50 mg capsule RxNorm: 002900 Take 1 Capsule(s) Oral QAM every morning Take 1 capsule by mouth once daily 07/14/19 22 Inactive Levemir FlexTouch U-100 Insulin 100 unit/mL (3 mL) subcutaneous pen RxNorm: 992100 Inject 83 Unit(s) Subcutaneous BID 07/08/19 22 [...] test strip hydralazine 50 mg tablet RxNorm: 098570 Take 1 Tablet(s) Oral QID 05/05/20 Inactive venlafaxine ER 225 mg tablet,extended release 24 hr RxNorm: 382070 Take 1 Tablet(s) Oral QD 05/05/20 Inactive venlafaxine ER 225 mg tablet,extended release 24 hr RxNorm: 142556 Take 1 Tablet(s) Oral QD 05/05/20 022 Inactive isosorbide mononitrate ER 30 mg tablet,extended release 24 hr RxNorm: 753452 Take 1 Tablet(s) Oral QD 05/05/20 024 Inactive hydralazine 50 mg tablet RxNorm: 604763 Take 1 Tablet(s) Oral QID 05/05/20 Inactive aspirin 81 mg tablet,delayed release RxNorm: 731718 Take 1 Tablet(s) Oral QD 03/31/20 022 Inactive Vitamin D2 1,250 mcg (50,000 unit) capsule RxNorm: 8540580 Take 1 Capsule(s) Oral QW once a week x 12 weeks 03/31/20 Inactive Vitamin D2 1,250 mcg (50,000 unit) capsule RxNorm: 4132554 Take 1 Capsule(s) Oral QW once a week 03/31/20 Inactive Zetia 10 mg tablet RxNorm: 747729 Take 1 Tablet(s) Oral QD 03/31/20 024 Inactive Zetia 10 mg tablet RxNorm: 270208 Take 1 Tablet(s) Oral QD 03/31/20 Inactive hydralazine 25 mg tablet RxNorm: 353616 Take 1 Tablet(s) Oral QID 03/31/20 021 Inactive hydralazine 25 mg tablet RxNorm: 401717 Take 1 Tablet(s) Oral QID 03/31/20 021 Inactive hydralazine 10 mg tablet RxNorm: 644778 Take 1 Tablet(s) Oral QID 03/03/20 021 Inactive cephalexin 500 mg tablet RxNorm: 800012 Take 1 Tablet(s) Oral QID 02/27/20 021 Inactive cephalexin 500 mg tablet RxNorm: 316933 Take 1 Tablet(s) Oral QID 02/27/20 021 Inactive lisinopril 40 mg tablet RxNorm: 447921 Take 1 Tablet(s) Oral QD 02/11/20 023 Inactive Eliquis 5 mg tablet RxNorm: 0734737 Take 1 Tablet(s) Oral BID 01/05/20 21 022 Inactive Eliquis 5 mg tablet RxNorm: 0278970 Take 2 Tablet(s) Oral QD 01/01/20 021 Inactive Lyrica 50 mg capsule RxNorm: 794852 Take 1 Capsule(s) Oral QAM every morning 12/24/19 021 Inactive Lyrica 100 mg capsule RxNorm: 665168 Take 1 Capsule(s) Oral QHS every night at bedtime 12/24/19 021 Inactive clotrimazole 1 % topical cream RxNorm: 594904 Apply to right foot and toes Topical BID 12/04/19 21 023 Inactive metoprolol succinate ER 200 mg tablet,extended release 24 hr RxNorm: 941690 Take 1 Tablet(s) Oral QD 12/04/19 023 Inactive ciprofloxacin 500 mg tablet RxNorm: 848713 Take 1 Tablet(s) Oral QD 11/30/19 021 Inactive DX ofloxacin otic drops Accu-Chek Guide test strips RxNorm: USE 1 TO CHECK GLUCOSE 4 TIMES DAILY AND NEEDED 11/15/19 21 023 Inactive Blood Glucose Test strips RxNorm: Use 1 Test Strip QID at PRN 11/05/19 21 023 Inactive E11.42 lisinopril 30 mg tablet RxNorm: 332836 Take 1 Tablet(s) Oral QD 10/30/19 021 Inactive lisinopril 20 mg tablet RxNorm: 130761 Take 1 Tablet(s) Oral QD 10/23/19 21 021 Inactive lisinopril 20 mg tablet RxNorm: 676029 Take 1 Tablet(s) Oral QD 10/23/19 21 021 Inactive lisinopril 10 mg tablet RxNorm: 977622 Take 1 Tablet(s) Oral QD 10/02/19 21 021 Inactive icosapent ethyl 1 gram capsule RxNorm: 6017865 Take 2 Capsule(s) (2 gm) Oral BID with meals 09/12/19 21 024 Inactive Okay to dispense one 2gm tab if you have that available. icosapent ethyl 1 gram capsule RxNorm: 4117391 Take 2 Capsule(s) Oral BID 09/12/19 21 021 Inactive Okay to dispense one 2gm tab if you have that available. amlodipine 10 mg tablet RxNorm: 838892 Take 1 Tablet(s) Oral QD 09/04/19 022 Inactive aspirin 81 mg tablet,delayed release RxNorm: 022604 Take 1 Tablet(s) Oral QD 09/04/19 21 021 Inactive Levemir FlexTouch U-100 Insulin 100 unit/mL (3 mL) subcutaneous pen RxNorm: 776515 Inject 150 Unit(s) Subcutaneous BID 09/04/19 21 022 Inactive venlafaxine ER 150 mg tablet,extended release 24 hr RxNorm: 343528 Take 1 Tablet(s) Oral QD 09/04/19 21 021 Inactive clotrimazole-betame thasone 1 %-0.05 % topical cream RxNorm: 537788 Apply to rash on red area on left abdomen/chest Topical BID 08/10/19 21 021 Inactive amlodipine 5 mg tablet RxNorm: 878376 Take 1 Tablet(s) Oral QD 07/31/19 21 021 Inactive cephalexin 500 mg tablet RxNorm: 944012 Take 1 Tablet(s) Oral BID BID - Twice Daily 07/31/19 21 021 Inactive Start 08/01/20 pantoprazole 40 mg tablet,delayed release RxNorm: 864961 Take 1 Tablet(s) Oral QAM every morning 07/08/19 022 Inactive senna 8.6 mg tablet RxNorm: 252674 Take 1 Tablet(s) Oral QD 07/08/19 022 Inactive carbamazepine 200 mg tablet RxNorm: 383570 Take 1 Tablet(s) Oral BID 07/08/19 022 Inactive clopidogrel 75 mg tablet RxNorm: 523598 Take 1 Tablet(s) Oral QD 07/08/19 021 Inactive Blood Glucose Test strips RxNorm: Use 1 Test Strip QID at PRN 07/08/19 Inactive E11.42 Novolog Flexpen U-100 Insulin aspart 100 unit/mL (3 mL) subcutaneous RxNorm: 8581529 Administer per sliding scale Milliliter(s) Subcutaneous TID 151-200: 10 u; 201-250: 20 u; 251-300: 30 u; 301-350: 40 u; 351-400: 50 u. 07/08/19 022 Inactive lisinopril 5 mg tablet RxNorm: 555529 Take 1 Tablet(s) Oral QD 07/08/19 021 Inactive Novolog Flexpen U-100 Insulin aspart 100 unit/mL (3 mL) subcutaneous RxNorm: 5999856 Inject 85 Unit(s) Subcutaneous TID 07/08/19 022 Inactive pravastatin 80 mg tablet RxNorm: 230803 Take 1 Tablet(s) Oral QHS every night at bedtime 07/08/19 023 Inactive clotrimazole 1 % topical cream RxNorm: 028524 Apply to bilateral groin areas Topical BID 07/08/19 022 Inactive metoprolol succinate ER 200 mg tablet,extended release 24 hr RxNorm: 981553 Take 1 Tablet(s) Oral QD 07/08/19 021 Inactive Vitamin D3 25 mcg (1,000 unit) tablet RxNorm: 110659 Take 1 Tablet(s) Oral QD 07/08/19 021 Inactive isosorbide dinitrate 30 mg tablet RxNorm: 123501 Take 1 Tablet(s) Oral QD 07/08/19 21 021 Inactive Levemir FlexTouch U-100 Insulin 100 unit/mL (3 mL) subcutaneous pen RxNorm: 195046 Inject 140 Unit(s) Subcutaneous BID 07/08/19 21 021 Inactive torsemide 20 mg tablet RxNorm: 069427 Take 1 Tablet(s) Oral QD 07/08/19 21 023 Inactive venlafaxine 75 mg tablet RxNorm: 032865 Take 1 Tablet(s) Oral QD 07/08/19 021 Inactive acetaminophen 500 mg tablet RxNorm: 307680 Take 1 Tablet(s) Oral TID as needed for headache 06/18/19 021 Inactive acetaminophen 500 mg tablet RxNorm: 535881 Take 1 Tablet(s) Oral TID as needed for headache 06/18/19 021 Inactive Lyrica 100 mg capsule RxNorm: 070958 Take 1 Capsule(s) Oral QHS every night at bedtime 06/11/19 021 Inactive Lyrica 50 mg capsule RxNorm: 830691 Take 1 Capsule(s) Oral QAM every morning 06/10/19 021 Inactive hydrocortisone 2.5 % topical cream RxNorm: 298363 Apply to bilateral groin creases Topical BID 05/15/20 20 021 Inactive clotrimazole 1 % topical cream RxNorm: 410736 Apply to bilateral groin areas Topical BID 05/15/20 20 021 Inactive Lyrica 50 mg capsule RxNorm: 666309 Take 1 Capsule(s) Oral QAM every morning 05/14/20 20 020 Inactive Lyrica 100 mg capsule RxNorm: 964570 Take 1 Capsule(s) Oral QHS every night [...] Inactive Nystop 100,000 unit/gram topical powder RxNorm: 790296 Apply to abd folds, under breasts and L side of groin Topical BID x 14 days, then BID PRN 04/08/20 20 Inactive dx: yeast dermatitis Lyrica 100 mg capsule RxNorm: 841689 Take 1 Capsule(s) Oral QHS every night at bedtime 03/13/20 20 Inactive Lyrica 50 mg capsule RxNorm: 352902 Take 1 Capsule(s) Oral QAM every morning 03/13/20 20 Inactive ketoconazole 2 % shampoo RxNorm: 526417 Apply Topical two times a week with showers 03/11/20 20 Inactive cholecalciferol (vitamin D3) 50 mcg (2,000 unit) tablet RxNorm: 173948 Take 1 Tablet(s) Oral QD 03/11/20 20 021 Inactive Zetia 10 mg tablet RxNorm: 041929 Take 1 Tablet(s) Oral QD 03/07/20 20 021 Inactive Zetia 10 mg tablet RxNorm: 974902 Take 1 Tablet(s) Oral QD 03/07/20 20 Inactive Lyrica 50 mg capsule RxNorm: 133197 Take 1 Capsule(s) Oral QAM every morning 02/15/20 20 Inactive Lyrica 100 mg capsule RxNorm: 903094 Take 1 Capsule(s) Oral QHS every night at bedtime 02/15/20 20 Inactive Lyrica 100 mg capsule RxNorm: 790689 Take 1 Capsule(s) Oral QHS every night at bedtime 02/15/20 20 Inactive Lyrica 50 mg capsule RxNorm: 808687 Take 1 Capsule(s) Oral QAM every morning 02/15/20 20 020 Inactive metoprolol succinate ER 200 mg tablet,extended release 24 hr RxNorm: 541610 Take 1 Tablet(s) Oral QD 08/12/19 23 Active loperamide 2 mg capsule RxNorm: 712975 Take 1 Capsule(s) Oral QID as needed 06/12/19 22 Active hydralazine 50 mg tablet RxNorm: 519807 Take 1 Tablet(s) Oral QID 08/12/19 23 Active venlafaxine ER 75 mg capsule,extended release 24 hr RxNorm: 751441 Take 3 Capsule(s) Oral QD 06/12/19 22 023 Inactive polyethylene glycol 3350 17 gram/dose oral powder RxNorm: 148613 Take 17=1 capful Gram(s) Oral BID as needed mix with 4-8oz of liquid 06/12/19 22 024 Inactive icosapent ethyl 1 gram capsule RxNorm: 1166960 Take 2 Capsule(s) (2 gm) Oral BID with meals 10/07/19 23 023 Inactive Okay to dispense one 2gm tab if you have that available. Levemir FlexTouch U-100 Insulin 100 unit/mL (3 mL) subcutaneous pen RxNorm: 527527 Inject 80 Unit(s) Subcutaneous BID 07/14/19 23 023 Inactive Novolog Flexpen U-100 Insulin aspart 100 unit/mL (3 mL) subcutaneous RxNorm: 7751227 Insert 30 Unit(s) Subcutaneous TID with meals 10/08/19 22 022 Inactive Medication Administered No Medication Administered data Reason For Visit No Reason For Visit data Plan of Care Planned Activity Notes Codes Status Date Referral: [facility] WPtel: [address], [address] [id number] [place] Referral Records Received 09/21/2022 Referral: [facility] WPtel: [address] [id number] [place] Referral Completed 05/28/2021 Referral: General Cardiology [...] attention.??Sister Jyotsna involved in his care cell# [phone]??Guardian: Giulia (tapan met in person 09/01/21), now [...] note from 11.08.2023 at [facility] (follow up 6 months) 12/14/2023
--- OUTSIDE RECORDS SUMMARY | 2023-12-29 23:14 | XMS_ITS | Referral Summary ---
Author Organization [place] Address [address] [place] [address] Care Team Providers Care Chiller Tender Name Role Phone Services, [facility] Physician Primary Care Provi sadia Prince Tobar MD Unavailable Prince Tobar MD Unavailable Encounters Date Type Department Care Team Description 12/28/2023 6:08 PM CDT - 12/29/2023 12:59 AM CDT Emergency [facility] Emergency Dept [address] [place] [address] Agustin Cesar MD Anal fissure; External hemorrhoids Discharge Disposition: Custodial Facility 12/28/2023 Travel from Last 3 Months Allergies Active Allergy Reactions Criticality Noted Date [...] daily Active cholecalciferol (VITAMIN D3) 1250 mcg (01646 units) capsule Take 1,250 mcg by mouth every 7 days on Wednesdays. 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 Last Filed Vital Signs Vital Sign Reading [...] STAT 6:41 PM CDT CBC WITH PLATELETS AND DIFFERENTIAL STAT 12/28/2023 6:41 PM CDT COMPREHENSIVE METABOLIC PANEL STAT 12/28/2023 6:41 PM CDT PARTIAL THROMBOPLASTIN TIME STAT 12/28/2023 6:41 PM CDT INR STAT 12/28/2023 6:41 PM CDT CBC WITH PLATELETS & DIFFERENTIAL Routine 10/15/2023 3:13 PM CDT Hypertensive heart disease without heart failure Atherosclerotic heart disease of [place] coronary artery without angina pectoris Body mass index (BMI) 60.0-69.9, adult (H) Chronic kidney disease, unspecified COMPREHENSIVE METABOLIC PANEL Routine 10/15/2023 3:13 PM CDT Hypertensive heart disease without heart failure Atherosclerotic heart disease of [place] coronary artery without angina pectoris Body mass index (BMI) 60.0-69.9, adult (H) Chronic kidney disease, unspecified CBC WITH PLATELETS AND DIFFERENTIAL Routine 10/15/2023 3:13 PM CDT Hypertensive heart disease without heart failure Atherosclerotic heart disease of [place] coronary artery without angina pectoris Body mass index (BMI) 60.0-69.9, adult (H) Chronic kidney disease, unspecified VITAMIN D DEFICIENCY SCREENING Routine 10/15/2023 3:13 PM CDT Hypertensive heart disease without heart failure Atherosclerotic heart disease of [place] coronary artery without angina pectoris Body mass index (BMI) 60.0-69.9, adult (H) Chronic kidney disease, unspecified HEMOGLOBIN A1C Routine 10/15/2023 3:13 PM CDT Hypertensive heart disease without heart failure Atherosclerotic heart disease of [place] coronary artery without angina pectoris Body mass [...] MD LAB - BLOOD ORD ERABLES LABORATORY [facility] Acute Care Lab [address] Lab (1st floor, no room number) [place] [address] * Adult Type and Screen (12/28/2023 6:41 PM CDT) ABO/RH(D) A POS 12/28/2023 6:28 PM CDT RH BLOOD BANK Antibody Screen Negative Negative 12/28/2023 6:28 PM CDT RH BLOOD BANK SPECIMEN EXPIRATION DATE [id number] 12/28/2023 6:28 PM CDT RH BLOOD BANK Blood STRUCTURE OF RIGHT UPPER LIMB / Unknown Venipuncture / Unknown 12/28/2023 6:41 PM CDT 12/28/2023 6:46 PM CDT Agustin Cesar MD LAB - BLOOD BAN K TEST ORDER RH BLOOD BANK [address] [place] [address] * INR (12/28/2023 6:41 PM CDT) INR 1.01 0.85 - 1.15 12/28/2023 7:00 PM CDT RH LABORATORY Blood STRUCTURE OF RIGHT UPPER LIMB / Unknown Venipuncture / Unknown 12/28/2023 6:41 PM CDT 12/28/2023 6:46 PM CDT Agustin Cesar MD LAB - BLOOD ORD ERABLES LABORATORY [facility] Acute Care Lab [address] Lab (1st floor, no room number) [address] * Partial thromboplastin time (12/28/2023 6:41 PM CDT) aPTT 28 22 - 38 Seconds 12/28/2023 7:00 PM CDT LABORATORY Blood STRUCTURE OF RIGHT UPPER LIMB / Unknown Venipuncture / Unknown 12/28/2023 6:41 PM CDT 12/28/2023 6:46 PM CDT Agustin Cesar MD LAB - BLOOD ORD ERABLES Performing Organization Address City/[facility]/ZIP Co de Phone Number [facility] Care Lab [address] Lab (1st floor, no room number) [address] * (ABNORMAL) Comprehensive metabolic panel (12/28/2023 6:41 [...] - 107 mmol/L 12/28/2023 7:09 PM CDT LABORATORY Glucose 292(H) 70 - 99 mg/dL 12/28/2023 7:09 PM CDT RH LABORATORY Alkaline Phosphatase 110 40 - 150 U/L 12/28/2023 7:09 PM CDT LABORATORY AST 21 0 - 45 U/L 12/28/2023 7:09 PM CDT LABORATORY ALT 15 0 - 70 U/L 12/28/2023 7:09 PM CDT LABORATORY Protein Total 6.8 6.4 - 8.3 g/dL 12/28/2023 7:09 PM CDT LABORATORY Albumin 3.6 3.5 - 5.2 g/dL 12/28/2023 7:09 PM CDT LABORATORY Bilirubin Total 0.3 <=1.2 mg/dL 12/28/2023 7:09 PM CDT LABORATORY Blood STRUCTURE OF RIGHT UPPER LIMB / Unknown Venipuncture / Unknown 12/28/2023 6:41 PM CDT 12/28/2023 6:46 PM CDT Agustin Cesar MD LAB - BLOOD ORD ERABLES LABORATORY [facility] Acute Care Lab [address] [facility] Lab (1st floor, no room number) [place] [address], [facility] * Vitamin D Deficiency (10/15/2023 3:13 PM CDT) Vitamin D, Total (25-Hydroxy) 32 20 - 50 ng/mL 10/17/2023 4:24 PM CDT [facility] LAB[facility] Comment:optimum levels Blood BLOOD SPECIMEN / Unknown Client Draw / Unknown 10/15/2023 3:13 PM CDT 10/15/2023 4:25 PM CDT [facility] - 10/17/2023 4:24 PM CDT Season, race, dietary intake, and treatment affect the concentration of 07-hcqzjtp-Vnlrima D. Values may decrease during winter months and increase during summer months. Vitamin D determination is routinely performed by an immunoassay specific for 25 hydroxyvitamin D3. ??If an individual is on vitamin D2(ergocalciferol) supplementation, please specify 25 [place] vitamin D2 and D3 level determination by LCMSMS test VITD23. Harrison Munson LAB - BLOOD ORDERABL ES LABORATORY [facility] [place] [facility] [address] [facility], [address] [place] [address] * (ABNORMAL) Hemoglobin A1c (10/15/2023 3:13 PM CDT) Hemoglobin A1C 10.8(H) <5.7 % 10/15/2023 4:57 PM CDT LABORATORY Comment: Normal <5.7% Prediabetes 5.7-6.4% ?? Diabetes 6.5% or higher Note: Adopted from ADA consensus guidelines. Blood BLOOD SPECIMEN / Unknown Client Draw / Unknown 10/15/2023 3:13 PM CDT 10/15/2023 4:25 PM CDT Harrison Putnam LAB - BLOOD ORDERABL ES LABORATORY [facility] Acute Care Lab [address] [facility] Lab (1st floor, no room number) [place] [address] from Last 3 Months Advance Directives For more information, please contact: [phone] Documents on File Type Date Recorded Patient Iron Melter Expl anation Advance Directives and Living Will [...] yissel nt/ legal decision maker Care Teams Chiller Tender Relationship Specialty Start Date End Date Services, [facility] Physician [address] [place] [address] [phone] PCP - General 05/22/21 Prince Tobar MD [address] [place] [phone] Cardiovascular Disease 03/26/22 Prince Tobar MD [address] [place] [address] Assigned Heart and Vascular Provider 05/30/22
--- OUTSIDE RECORDS SUMMARY | 2023-12-29 23:15 | XMS_ITS | Encounter Summary ---
Author Organization [place] Address [address] [place] [address] Care Team Providers Care Gas Pumping Station Operator Name Role Phone Services, [facility] Physician Primary Care Provi sadia Prince Tobar MD Unavailable [phone] Prince Tobar MD Unavailable [phone] Reason for Referral * Consultation (Priority: 1-2 Weeks) - Pending Review Specialty Diagnoses / Procedures Referred By Contjohnny dalal Referred To Contact Colon and Rectal Surgery Diagnoses Anal fissure External hemorrhoids Reinaldo Beltran PA-C [facility] [address] [place] [address] Referral ID Status Reason Start Date Expiration Date V isits Requested Visits Authorized [id number] Pending Review 12/28/2023 12/27/2024 1 1 Question Answer Reason for Referral: Anal Fissure Special Concerns: Other My Clinical Question Is: Anal fissure, taking Apixaban Scheduling Instructions: yuilop SL will call you to coordinate care as prescribed your provider. If you don? t hear from a financial service representative within 2 business days, please call . Comments Please be aware that coverage of these services is subject to the terms and limitations of your health insurance plan. Call member services at your health plan with any benefit or coverage questions. yuilop SL will call you to coordinate care as prescribed your provider. If you don? t hear from a financial service representative within 2 business days, please call . Reason for Visit * Reason Comments Rectal Bleeding Encounter Details Date Type Department Care Team (Late st Contact Info) Description 12/28/2023 6:08 PM CDT - 12/29/2023 12:59 AM CDT Emergency [facility] Emergency Dept [address] [place] [address] Agustin Cesar MD 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 Vomit (throw up) blood or something that [...] the counter medications such as aspirin and Advil??, Motrin?? (ibuprofen) that can thin your blood or [...] mouth daily cholecalciferol (VITAMIN D3) 1250 mcg (11978 units) capsule Take 1,250 mcg by mouth [...] 200 mg by mouth daily nystatin (MYCOSTATIN) 225068 UNIT/GM external powder Apply topically 2 times [...] MG tablet cholecalciferol (VITAMIN D3) 1250 mcg (56841 units) capsule clotrimazole (LOTRIMIN) 1 % external [...] 200 MG 24 hr tablet nystatin (MYCOSTATIN) 685120 UNIT/GM external powder pantoprazole (PROTONIX) 40 MG [...] -- 96 % 12/28/23 1811 124/65 98.1 ??F (36.7 ??C) Oral 77 17 96 % Physical Exam [...] POS Antibody Screen Negative SPECIMEN EXPIRATION DATE [id number] ABO/RH TYPE AND SCREEN Emergency Department Course [...] 1. Anal fissure K60.2 Adult Colorectal Surgery Veneer Jointer Helper Referral 2. External hemorrhoids K64.4 Adult Colorectal Surgery Veneer Jointer Helper Referral Discharge Medications: New Prescriptions HYDROCORTISONE, PERIANAL, [...] yesterday, he went to a clinic in [place], he is unsure of what was done [...] MG tablet cholecalciferol (VITAMIN D3) 1250 mcg (02115 units) capsule clotrimazole (LOTRIMIN) 1 % external [...] 200 MG 24 hr tablet nystatin (MYCOSTATIN) 601784 UNIT/GM external powder pantoprazole (PROTONIX) 40 MG [...] -- -- -- -- -- 96 % 08/13/24 1840 -- -- -- -- -- 95 % 12/28/235 -- -- -- -- -- 96 % 12/28/23 183 135/68 -- -- 74 -- 97 % 12/28/231824 -- -- -- -- -- 97 % 12/28/231819 -- -- -- -- -- 96 % 12/28/231814 129/59 -- -- 74 -- 96 % 12/28/231810 124/65 98.1 ??F (36.7 ??C) Oral 77 17 96 % Physical Exam [...] POS Antibody Screen Negative SPECIMEN EXPIRATION DATE [id number] ABO/RH TYPE AND SCREEN Imaging No orders to display Independent Interpretation None ED Course Medications Administered Medications - No data to display Procedures Procedures Discussion of Management Staffed with Dr. Cesar ED Course ED Course as of 12/28/231936Dec 28, 20231838 I evaluated and examined the patient 1902 Rectal exam with RN at bedside Additional Documentation None Medical Decision Making / Diagnosis [facility] Diagnoses: None MIPS None [facility] Leonid Leahy is a 63 year old [...] 1. Anal fissure K60.2 Adult Colorectal Surgery Veneer Jointer Helper Referral 2. External hemorrhoids K64.4 Adult Colorectal Surgery Veneer Jointer Helper Referral Discharge Medications New Prescriptions HYDROCORTISONE, PERIANAL, [...] Pt comes from assisted living facility in [place]. * Tamiko Monzon RN - 12/28/2023 6:08 PM CDT Bed: ED01 Expected date: Expected time: Means of arrival: Comments: [id number] 63Ym documented in this encounter Plan of Treatment Scheduled Referrals Name Type Priority Associated Diagnoses Orde r Schedule Adult Colorectal Surgery Veneer Jointer Helper Referral Referral Priority: 1-2 Weeks Anal fissure [...] CDT RH BLOOD BANK SPECIMEN EXPIRATION DATE [id number] 12/28/2023 6:28 PM CDT RH BLOOD BANK Blood STRUCTURE OF RIGHT UPPER LIMB / Unknown Venipuncture / Unknown 12/28/2023 6:41 PM CDT 12/28/2023 6:46 PM CDT Agustin Cesar MD LAB - BLOOD BAN K TEST ORDER BLOOD BANK [address] [place] [address], [facility] * (ABNORMAL) CBC with platelets and differential [...] LAB - BLOOD ORD ERABLES RH LABORATORY [facility] Acute Care Lab [address] [facility] Lab (1st floor, no room number) [place] [address], [facility] * (ABNORMAL) Comprehensive metabolic panel (12/28/2023 6:41 [...] PM CDT RH LABORATORY Comment:eGFR calculated usin g 2020 CKD-EPI equation. Calcium 8.6(L) 8.8 - [...] Cesar MD LAB - BLOOD ORD ERABLES [facility] Care Lab [address] Lab (1st floor, no room number) [address] * Partial thromboplastin time (12/28/2023 6:41 PM CDT) aPTT 28 22 - 38 Seconds 12/28/2023 7:00 PM CDT RH LABORATORY Blood STRUCTURE OF RIGHT UPPER LIMB / Unknown Venipuncture / Unknown 12/28/2023 6:41 PM CDT 12/28/2023 6:46 PM CDT Agustin Cesar MD LAB - BLOOD ORD ERABRITTANY Performing Organization Address [facility]/ZIP Co de Phone Number [facility] Care Lab [address] Lab (1st floor, no room number) [place] [address] [place] [address] * INR (12/28/2023 6:41 PM CDT) INR 1.01 0.85 - 1.15 12/28/2023 7:00 PM CDT RH LABORATORY Blood STRUCTURE OF RIGHT UPPER LIMB / Unknown Venipuncture / Unknown 12/28/2023 6:41 PM CDT 12/28/2023 6:46 PM CDT Agustin Cesar MD LAB - BLOOD ORD ERABLES [facility] Acute Care Lab [address] Lab (1st floor, no room number) [place] [address], [facility] documented in this encounter Visit Diagnoses Diagnosis Anal fissure External hemorrhoids External hemorrhoids without mention of complication documented in this encounter Care Teams Gas Pumping Station Operator Relationship Specialty Start Date End Date Services, [facility] Physician [address] [place] [address] PCP - General 05/22/21 Prince Tobar MD [address] [place] [address] Cardiovascular Disease 03/26/22 Prince Tobar MD [address] [place] [id number] Assigned Heart and Vascular Provider 05/30/22 documented as of this encounter
--- OUTSIDE RECORDS SUMMARY | 2023-12-29 23:15 | XMS_ITS | Encounter Summary ---
Author Organization [place] Address [address] [facility] 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 [address] [place], [place] [phone] PCP - General 05/22/21 Prince Tobar MD [address] [place] [address] Cardiovascular Disease 03/26/22 Prince Tobar MD [address] [place] [address] Assigned Heart and Vascular Provider 05/30/22 documented as of this encounter
--- OUTSIDE RECORDS SUMMARY | 2023-12-29 23:15 | XMS_ITS | Clinical Summary ---
Author Organization [employer] [facility] Address [place], [place] [address] Care Team Providers Care Negative Retoucher Name Role Phone Alan Lopez MD Unavailable [phone] Nishant Watson MD Unavailable Pcp, No Primary [...] type 2 diabetes mellitus (HC),Chronic edema JOBST #[id number] LRG FULL CALF KNEE BLACK 20-30 COMPRESSION [...] mg extended release tablet 24 HourIndications:CAD in [place] artery Take 1 tablet by mouth once [...] call MD 0 04/01/2020 Active Insulin Safety [place], Disp, (NOVOFINE AUTOCOVER) 30 gauge x /3Indications:Cecelia [...] at 10 am and no showed. RN Engraver Machine, Juanita Yoo, notified and she will attempt [...] No, referral made to Advance Care Plan Breastfeeding Educator. Patient has identified Specific Treatment Preferences: No Sophia Méndez RN .................... 07/06/2011 2:30 PM] Specific limits to treatment preferences NOT identified: ASSUME FULL TREATMENT. Last Assessment & Plan: Advance Care Planning: Disease-specific Session Leonid Leahy is a [facility] [place] patient. His PCP is Leandra Limon at [facility]. Advance care planning discussions were completed with Leonid. He identified his sister, Brittany Suggs, as his healthcare agent. Brittany was not present for ACP session. Understanding of Illness and Disease [place]: Leonid identifies his medical condition as what [...] to live well: Daily visit to local [facility] for a pop and to visit and catch up in the news with locals. Leonid obed with serious challenges in his life: Support of his sister, only a phone call away. Helps manage [facility] services. Leonid identifies the following fears [...] and primary care provider. Hard Choices for [place] People booklet was sent to Leonid and his health care agent for review. Leonid requested all information be mailed to his sister and entry writer to place call to sister to explain process. Leonid identified the following concerns during his advance care planning session: needing assistance at home to ensure he is managing his medications and treatments to keep going as is and stabilizing. Is followed by Clinic Resource Efficiency Manager for needed services. Questions identified for his primary care provider: none Documents addressed during this advance care planning session: Health Care Directive completed and scanned into medical record. Statement of Treatment Preferences for advanced illness completed and scanned into the medical record. Recommendations/Plan: Leonid to review Advance Care Plan with Leonid's healthcare agent. Import Manager will be contacting Leonid's [facility] to explain services rendered, Leonid would benefit from: Home Care and/or Hospice when / if appropriate. [facility] services involved, sister supports [...] 2:27 PM Sophia Méndez RN RN Clinic Resource Efficiency Manager - [facility] [phone] Vitamin D deficiency 01/06/2011 011 Neuropathy 09/25/2010 [...] Department Care Team Description 11/01/2023 Lab Requisition [address] [address] Harrison Munson DNP from Last 3 Months [...] 176.9 kg (390 lb) 07/14/2022 6:10 PM SERVICE TECHNICIAN COPIER Height 167.6 cm (5' 6) 07/14/2022 6:10 PM SERVICE TECHNICIAN COPIER Body Mass Index 62.95 07/14/2022 6:10 PM SERVICE TECHNICIAN COPIER Plan of Treatment Health Maintenance Due Date [...] Kay García Medical Devices Implanted Type Area Stack Yield Engineer Device Identifier Shelf Expiration Date Model / Serial / Lot Iol [place] +20 Tecnis Zcb00 - [id number] Implanted:Qty: 1 on 07/15/2022 by Tanner Fuentes MD at [facility] Left: Eye [employer] 06/24/2025 ZCB00 20.0 / [id number] / Iol [place] +20 Tecnis Zcb00 - [id number] Implanted:Qty: 1 on 08/19/2022 by Tanner Fuentes MD at [facility] Right: Eye [employer] 06/24/2025 ZCB00 20.0 / [id number] / Procedures Procedure Name Priority Date/Time Associated Diagnosis Comments BASIC METABOLIC PANEL Routine 11/01/2023 10:10 AM CDT Hypokalemia LIPID PANEL Routine 03/13/2019 2:31 PM CDT Essential hypertriglyceridemia from Last 3 Months or Most Recently Relevant to Health Maintenance Results * (ABNORMAL) BASIC METABOLIC PANEL (11/01/2023 10:10 AM CDT) SODIUM 140 136 - 145 mmol/L 11/01/2023 12:09 PM CDT [facility] POTASSIUM 3.7 3.5 - 5.1 mmol/L 11/01/2023 12:09 PM CDT [facility] CHLORIDE 97(L) 98 - 107 mmol/L 11/01/2023 12:09 PM CDT [facility] CO2,TOTAL 32(H) 22 - 29 mmol/L 11/01/2023 12:09 PM CDT [facility] ANION GAP 11 5 - 18 11/01/2023 12:09 PM CDT [facility] GLUCOSE 397(H) 70 - 99 mg/dL 11/01/2023 12:09 PM CDT [facility] CALCIUM 9.2 8.8 - 10.2 mg/dL 11/01/2023 12:09 PM CDT [facility] BUN 24(H) 8 - 23 mg/dL 11/01/2023 12:09 PM CDT [facility] CREATININE 1.09 0.70 - 1.20 mg/dL 11/01/2023 12:09 PM CDT [facility] BUN/CREAT RATIO 22(H) 10 - 20 12:09 PM CDT [facility] eGFR 76(L) >90 mL/min/1.7 3m2 11/01/2023 12:09 PM CDT [facility] Comment:As of 2021, eG FR [...] 11:43 AM CDT Harrison Munson DNP CHEMISTRY [facility] [address] [place] [address], * (ABNORMAL) LIPID PANEL (03/13/2019 2:31 PM CDT) CHOLESTEROL,TOTAL 193 100 - 199 mg/dL 03/13/2019 9:25 PM CDT [facility] TRIGLYCERIDES 715(H) <150 mg/dL 03/13/2019 9:25 PM CDT [facility] HDL CHOLESTEROL 29(L) >40 mg/dL 9 9:25 PM CDT [facility] NON-HDL CHOLESTEROL 164(H) <145 mg/dl 03/13/2019 9:25 PM CDT [facility] CHOL/HDL RATIO 6.66(H) <4.50 03/13/2019 9:25 PM CDT [facility] LDL CHOLESTEROL 9 9:25 PM CDT [facility] Comment:Invalid LDL when Tri g >400. PROVIDER ORDERED STATUS RANDOM 03/13/2019 9:25 PM CDT [facility] Blood BLOOD SPECIMEN / Unknown Venipuncture / Unknown 03/13/2019 2:31 PM CDT 03/13/2019 2:31 PM CDT Suellen Sosa MD CHEMISTRY [facility] [address] [place] [address], [place] from Last 3 Months or Most Recently Relevant to Health Maintenance Advance Directives Documents on File Type Date Recorded Patient German Teacher Expl anation POLST 09/26/2014 3:45 PM AH [...] 9:30 PM 03/19/2009 6:17 PM Care Teams Negative Retoucher Relationship Specialty Start Date End Date Pcp, No . PCP - General 07/15/22 Alan Lopez MD Internal Medicine Internal Medicine 11/20/10 Nishant Watson MD [address] [place] [address] Endocrinology 08/15/13
== END 2023-12-27 04:51 | disposition home or self-care (01) ==
LOC: AMB 12-29 22:55
PROVIDERS: Visit Provider Family Medicine
DX: R07.89 Other chest pain (principal)
CPT/HCPCS: A0425; A0427

== ENCOUNTER 2023-12-27 05:16 | Emergency (ER) | payer MEDICARE, MEDICAID, SELFPAY ==
[2023-12-27 05:21] VITALS: BP 127/61; PULSE 80; RESP 20; TEMP 36.6; O2SAT 95; BMI 64.6
--- NOTE | 2023-12-27 05:46 | CRLHL7_ITS ---
For Patients: As a result of the Cures Act, medical imaging exams and procedure reports are released immediately into your electronic medical record. You may view this report before your referring provider. If you have questions, please contact your health care provider. Indication: Low back pain Technique: Two views of the lumbosacral spine were acquired Comparison: There are no prior studies for comparison Findings: There are severe degenerative changes involving the entirety of the spine. This includes the visualized lower thoracic spine. The degenerative changes consist of disc disease and facet osteoarthritis. I see no fracture or destructive process. Impression: Severe diffuse degenerative changes. No visible acute fracture, dislocation or destructive process. Dictated by Wil Perez MD @ 12/27/2023 6:16:16 AM (Electronically Signed)
--- NOTE | 2023-12-27 05:49 | ED_ITS ---
HPI - General Adult General Chief complaint: Back Injury/Pain Stated complaint: Back pain Time Seen by Provider: 12/27/23 05:30 Source: patient and EMS Mode of arrival: EMS Limitations: other (Limited insight) History of Present Illness HPI narrative: 63-year-old male called EMS due to back pain. He is very nonspecific about where the pain is telling us shoulder region, mid back and low back area. Worse with movement. It has been present for 2-3 days but he is very vague on the details. Denies any trauma or injury no prior history of back surgery. He has chronic neuropathy in his feet but states that that is unchanged, he has no radiculopathy type symptoms. He did not try any interventions prior to calling EMS for his symptoms. He does have a history of chronic pain and uses Lyrica. He has severe obstructive sleep apnea and is a poor candidate for pain medications. He is also on heavy anticoagulants due to history of recurrent DVT and is not an ideal candidate for long-term NSAIDs. He has not tried Tylenol for this. He cannot really describe any exacerbating or relieving factors. He says that it hurts to lay down so he called 911. He has not been evaluated by primary care provider or other health professional for this recently. He denies any medical symptoms like dizziness, shortness of breath, chest pain, neurological changes. No additional information provided from EMS. No loss of bowel or bladder control, no weakness in the legs. Past medical history is notable for super morbid obesity, diabetes, hypertension, chronic mental health issues, hypercoagulability, chronic sriram ropathy. He is on many medications, our list does match that provided by his retirement facility. He is not his own guardian. Related Data Home Medications ?Medication ?Instructions ?Recorded ?Confirmed amlodipine 10 mg tablet 10 mg PO DAILY 03/07/22 12/27/23 apixaban 5 mg tablet (Eliquis) 5 mg PO BID 03/07/22 12/27/23 aripiprazole 15 mg tablet 7.5 mg PO DAILY 03/07/22 12/27/23 aspirin 81 mg tablet,delayed 81 mg PO DAILY 03/07/22 12/27/23 release carbamazepine 200 mg tablet 200 mg PO BID 03/07/22 12/27/23 chlorthalidone 25 mg tablet 25 mg PO DAILY 03/07/22 12/27/23 ezetimibe 10 mg tablet 10 mg PO DAILY 03/07/22 12/27/23 hydralazine 50 mg tablet 50 mg PO QID 03/07/22 12/27/23 isosorbide mononitrate 30 mg 30 mg PO DAILY 03/07/22 12/27/23 tablet,extended release 24 hr pantoprazole 40 mg tablet,delayed 40 mg PO DAILY 03/07/22 12/27/23 release polyethylene glycol 3350 17 17 g PO DAILY 03/07/22 12/27/23 gram/dose oral powder pregabalin 100 mg capsule 100 mg PO QAM 03/07/22 12/27/23 pregabalin 150 mg capsule 150 mg PO HS 03/07/22 12/27/23 torsemide 20 mg tablet 20 mg PO DAILY 03/07/22 12/27/23 venlafaxine 75 mg capsule,extended 225 mg PO DAILY 03/07/22 12/27/23 release 24 hr acetaminophen 500 mg tablet 500 mg PO Q6H 06/13/22 12/27/23 albuterol sulfate 90 mcg/actuation 1 inh inhalation Q4H PRN 06/13/22 12/27/23 aerosol inhaler bronchospasm diphenhydramine HCl 50 mg capsule 50 mg PO Q6H PRN itching 06/13/22 12/27/23 (Banophen) icosapent ethyl 1 gram capsule 2 g PO BID 06/13/22 12/27/23 (Vascepa) insulin regular hum U-500 conc 500 100 unit subcut TID 06/13/22 12/27/23 unit/mL(3 mL) subcut pen (Humulin R U-500 (Conc) Insulin Kwikpen) ketoconazole 2 % shampoo 1 applic topical Q3D 06/13/22 12/27/23 loperamide 2 mg capsule 2 mg PO Q6H PRN loose stool 06/13/22 12/27/23 nystatin 100,000 unit/gram topical 1 applic topical BID PRN 06/13/22 12/27/23 powder sennosides 8.6 mg tablet (senna) 8.6 mg PO DAILY 06/13/22 12/27/23 clotrimazole 1 % topical cream 1 applic topical BID 07/25/22 12/27/23 ergocalciferol (vitamin D2) 1,250 50,000 unit PO WE@09 07/25/22 07/25/22 mcg (50,000 unit) capsule fluconazole 150 mg tablet 150 mg PO TUFR@07/25/22 07/25/22 gatifloxacin 0.5 % eye drops 1 drp ophthalmic (eye) QID 07/25/22 07/25/22 ketorolac 0.5 % eye drops 1 drp ophthalmic (eye) QID 07/25/22 07/25/22 insulin glargine 100 unit/mL (3 30 unit subcut BID 12/27/23 12/27/23 mL) subcutaneous pen (Basaglar KwikPen U-100 Insulin) isosorbide mononitrate 60 mg 60 mg PO DAILY 12/27/23 12/27/23 tablet,extended release 24 hr metoprolol succinate 200 mg 200 mg PO DAILY 12/27/23 12/27/23 tablet,extended release 24 hr rosuvastatin 20 mg tablet 40 mg PO QPM 12/27/23 12/27/23 semaglutide 1 mg/dose (4 mg/3 mL) 4 mg subcut .weekly 12/27/23 12/27/23 subcutaneous pen injector (Ozempic) Previous Rx's ?Medication ?Instructions ?Recorded carvedilol 25 mg tablet 25 mg PO Q12H 30 days #60 tabs 07/26/22 cephalexin 500 mg capsule 500 mg PO TID 10 days #30 caps 09/14/22 hydrocortisone 2.5 % topical cream 1 applic topical BID PRN #30 grams 09/14/22 nystatin 100,000 unit/gram topical 1 applic topical BID #30 grams 09/14/22 powder potassium chloride 20 mEq 20 meq PO DAILY #10 tabs 12/08/22 tablet,extended release ammonium lactate 12 % lotion 1 applic topical BID #225 grams 04/01/23 acetaminophen 650 mg 1,300 mg (2 x 650 mg) PO Q8H 14 12/27/23 tablet,extended release (Tylenol days #84 tabs Arthritis Pain) cyclobenzaprine 10 mg tablet 10 mg PO HS PRN muscle spasm #20 12/27/23 tabs Allergies Allergy/AdvReac Type Severity Reaction Status Date / Time lisinopril Allergy Mild Cough Verified 12/27/23 05:23 metformin AdvReac Verified 12/27/23 05:23 PFSH PFSH Medical History Insulin dependent diabetes mellitus Recurrent deep vein thrombosis (DVT) ?I82.409 - Acute embolism and thrombosis of unspecified deep veins of unspecified lower extremity (ICD-10) Hypertension ?I10 - Essential (primary) hypertension (ICD-10) Coronary artery disease ?I25.10 - Atherosclerotic heart disease of [place] coronary artery without angina pectoris (ICD-10) Hypertriglyceridemia ?E78.1 - Pure hyperglyceridemia (ICD-10) Epilepsy ?G40.909 - Epilepsy, unspecified, not intractable, without status epilepticus (ICD-10) TASHI on CPAP ?G47.33 - Obstructive sleep apnea (adult) (pediatric) (ICD-10) ?Z99.89 - Dependence on other enabling machines and devices (ICD-10) Tachypnea ?R06.82 - Tachypnea, not elsewhere classified (ICD-10) Fever ?R50.9 - Fever, unspecified (ICD-10) CKD (chronic kidney disease) ?N18.9 - Chronic kidney disease, unspecified (ICD-10) Gout ?M10.9 - Gout, unspecified (ICD-10) Major depressive disorder ?F32.9 - Major depressive disorder, single episode, unspecified (ICD-10) Type 2 diabetes mellitus ?E11.9 - Type 2 diabetes mellitus without complications (ICD-10) Obesity ?E66.9 - Obesity, unspecified (ICD-10) Surgical History History of cholecystectomy ?Z90.49 - Acquired absence of other specified parts of digestive tract (ICD- 10) Social History Narrative: Lives in a retirement in [place], [place]. Sisters Brittany Suggs ([phone]) and Blanka Mcduffie ([phone]) listed as contacts and medical decision makers. Paperwork from retirement indicates Full Code status. Highest level of school completed/degree received: 12th grade, no diploma Smoking Status: Never smoker Do you use any of these nicotine containing products: None Second hand tobacco smoke exposure: No How often do you have a drink containing alcohol: never How often do you have six or more drinks on one occasion: Never AUDIT-C Alcohol total score: 0 Non-prescribed substance use: denies use Caffeine: No service: No Exam Const: Vital Signs, click to edit/add: Vital Signs - 24 hr 12/27/23 05:21 12/27/23 05:51 Temperature 97.9 F 97.9 F Pulse Rate [Right Pulse Oximeter] 80 Respiratory Rate 20 Blood Pressure [Ri ght Upper Arm] 127/61 Pulse Oximetry 95 Oxygen Delivery Me thod Room Air Documenting provider has reviewed patient's vital signs: yes Common normals: no apparent distress General appearance: cooperative Other: Limited insight, not a very descriptive historian. Seems to have some developmental delay. HENMT: Common normals: normocephalic Head and scalp: normocephalic Face and sinus: normal facial exam Mouth: oral and palatal mucosa normal Throat: posterior oropharynx normal Eye: Common normals: conjunctivae normal General eye: normal appearance of both eyes Conjunctiva: conjunctiva(e) normal Neck & C-Spine: Common normals: full ROM and no lymphadenopathy Chest: Common normals: inspection of chest normal and palpation of chest normal Resp: Common normals: normal respiratory effort, no use of accessory muscles and clear to auscultation bilaterally Effort & inspection: able to speak in complete sentences Auscultation: clear to auscultation bilaterally Cardio: Common normals: regular rate, regular rhythm, S1 normal heart sound, S2 normal heart sound and no murmurs Rate: regular rate Rhythm: regular rhythm Heart sounds: S1 normal and S2 normal GI: Common normals: Normal to inspection, nondistended, normoactive bowel sounds present Other: Obese with non incarcerated ventral hernia. Cannot palpate edges of organs well. Normoactive bowel sounds. Back & Pelvis: Other: Mild diffuse tenderness up and down the thoracolumbar spine. Does not seem to localize to anyone particular area. The paraspinal muscles are tender as well but there is certainly no guarding. No evidence of spasm. No step-offs or deformity. There is no bruising along the PAC that would indicate recent trauma. He is able to perform straight leg lifts with no difficulty. Rales in bed for me with no assistance using the bed rails with no difficulty. Extremity: Other: Some mild neurotic excoriation and some mild stasis changes to the legs but no open ulcerations , warmth or surrounding redness. Neuro: Common normals: moves all extremities and no focal motor deficits Motor exam: strength 5/5 throughout and muscle tone normal throughout Psych: Common normals: speech normal Appearance: grossly normal Attitude: calm Speech: normal speech Insight: limited Judgement: limited Skin: Narrative: No bruising. Mild stasis and some excoriation as stated above but no open ulcers or surrounding redness. Course Course ED Course: 63-year-old male with limited insight reporting vague back pain. Differential diagnosis includes potential medical source such as kidney stone, viral illness, rhabdomyolysis. Less likely rheumatological condition or infectious etiology. Most likely this is a mechanical or strain type of situation due to patient's very poor body habitus and overall general condition. Will obtain lumbar spine x-rays, COVID swab and urinalysis. Will give Tylenol, Flexeril and a single dose of Celebrex. He is not a good candidate for long-term NSAIDs due to his anticoagulation. Short-term can be considered as the benefit would seem to outweigh the risk. Await x-ray and lab findings. Reevaluation(s) Time of Reevaluation #1: 06:46 Reevaluation #1: Discussed x-ray findings with patient. As expected, significant degenerative lower spine disease. Patient reports that the Flexeril, Celebrex and Tylenol were helpful. Counseled patient on management. Recommend that he make a follow-up appointment with his primary care provider to discuss physical therapy and other further management. He is likely to continue to have frequent flares. Continued weight loss would be helpful, I did notice that he has been losing weight over the last couple of years, this is good news. He should continue to stay active, try heat as needed. I am not comfortable giving him NSAIDs without close monitoring as I am detecting some cognitive impairment. Therefore, I will prescribe Tylenol arthritis 2 pills 3 times daily for the next 2 weeks and Flexeril 10 mg at bedtime as needed if the pain is bothersome. NSAIDs could be considered under close supervision by his primary care provider if appropriate. If after a month of physical therapy and treatment, things are not improving. Additional primary care follow-up recommended to discuss further treatment options. Alarm symptoms that would warrant presentation to emergency department were reviewed, he verbalizes understanding and agreement. Vital Signs Vital signs: Initial Vital Signs Temperature 97.9 F 12/27/23 05:21 Temperature Source Temporal Artery Scan 12/27/23 05:21 Pulse Rate 80 12/27/23 05:21 Respiratory Rate 20 12/27/23 05:21 Blood Pressure 127/61 12/27/23 05:21 Blood Pressure Mean 83 12/27/23 05:21 Blood Pressure Position Sitting 12/27/23 05:21 Pulse Oximetry 95 12/27/23 05:21 Oxygen Delivery Method Room Air 12/27/23 05:21 Vital Signs Temperature 97.9 F 12/27/23 05:21 Pulse Rate 80 12/27/23 05:21 Respiratory Rate 20 12/27/23 05:21 Blood Pressure 127/61 12/27/23 05:21 Pulse Oximetry 95 12/27/23 05:21 Oxygen Delivery Method Room Air 12/27/23 05:21 Temperature 97.9 F 12/27/23 05:51 Pulse Rate 80 12/27/23 05:21 Respiratory Rate 20 12/27/23 05:21 Blood Pressure 127/61 12/27/23 05:21 Pulse Oximetry 95 12/27/23 05:21 Oxygen Delivery Method Room Air 12/27/23 05:21 Medications Administered Medications: Discontinued Medications Generic Name Dose Route Start Last Admin Trade Name Freq PRN Reason Stop Dose Admin Acetaminophen 1,000 mg 12/27/23 05:42 12/27/23 05:51 Acetaminophen 500 Mg Tablet PO 12/27/23 05:43 1,000 mg ONCE ONE Administration Celecoxib 200 mg 12/27/23 05:43 12/27/23 05:51 Celecoxib 200 Mg Capsule PO 12/27/23 05:44 200 mg ONCE ONE Administration Cyclobenzaprine HCl 5 mg 12/27/23 05:42 12/27/23 05:51 Cyclobenzaprine Hcl 10 Mg Tablet PO 12/27/23 05:43 5 mg ONCE ONE Administration Medical Decision Making Lab Data Lab results reviewed: Yes I reviewed the patient's lab results Lab results narrative: Viral testing negative, as expected Labs: Lab Results 12/27/23 Range/Units 05:47 SARS-CoV-2 (PCR) Negative SARS-CoV-2 (Negative) Influenza Type A (PCR) Negative PCR FLU A (Negative) Influenza Type B (PCR) Negative PCR FLU B (Negative) RSV (PCR) Negative PCR RSV (Negative) Imaging Data Lumbar spine x-ray: Attestation: I have reviewed the pertinent imaging results. My impression: Multilevel degenerative changes with no obvious signs of acute fracture Radiologist's impression: Impression: Severe diffuse degenerative changes. No visible acute fracture, dislocation or destructive process. Discharge Plan Discharge Clinical Impression: Localized osteoarthritis of lumbar spine Patient Disposition: Home w/ Parent or Adult Condition: Improved Instructions: Lumbar Spinal Stenosis (ED) Additional Instructions: As we discussed, there are no signs of significant neurological injury or damage today. Your x-rays do show pretty significant arthritis of your lower back, as expected. This is often the consequence of being overweight for many years and it worsens with age. This is going to flare up on you from time to time. For pain, I recommend a heating pad and frequent movement. For pain, I recommend Tylenol arthritis 2 tablets 3 times daily for the next 2 weeks. I would also recommend that you talk to your primary care provider about a physical therapy referral. This will help reduce the frequency of flare ups. Surgery is not recommended. Continuing to lose weight would also be helpful. I will also give a supply of Flexeril for you to use at bedtime. This is a muscle relaxant. It is not a good idea to use anti-inflammatories like Aleve or ibuprofen due to your blood thinners. If things are not improving in a month, make another follow-up appointment with your primary care provider to discuss different treatment options. This is not typically the type of thing that would be ev aluated in an emergency department unless there was a new severe injury. It may help to use a walker or cane when your pain is bothersome. Activity Level: Activity as Tolerated Discharge Diet: Regular Prescriptions: New cyclobenzaprine 10 mg tablet 10 mg PO HS PRN (Reason: muscle spasm) Qty: 20 0RF Rx Instructions: Muscle relaxant to use at bedtime if needed for back pain acetaminophen [Tylenol Arthritis Pain] 650 mg tablet extended release 1,300 mg PO Q8H 14 Days Qty: 84 0RF No Action amlodipine 10 mg tablet 10 mg PO DAILY aripiprazole 15 mg tablet 7.5 mg PO DAILY Eliquis 5 mg tablet 5 mg PO BID aspirin 81 mg tablet,delayed release (DR/EC) 81 mg PO DAILY venlafaxine 75 mg capsule,extended release 24hr 225 mg PO DAILY torsemide 20 mg tablet 20 mg PO DAILY isosorbide mononitrate 30 mg tablet extended release 24 hr 30 mg PO DAILY chlorthalidone 25 mg tablet 25 mg PO DAILY carbamazepine 200 mg tablet 200 mg PO BID pantoprazole 40 mg tablet,delayed release (DR/EC) 40 mg PO DAILY hydralazine 50 mg tablet 50 mg PO QID Patient Comments: 08,12,16,20 ezetimibe 10 mg tablet 10 mg PO DAILY pregabalin 100 mg capsule 100 mg PO QAM pregabalin 150 mg capsule 150 mg PO HS polyethylene glycol 3350 17 gram/dose powder 17 g PO DAILY Rx Instructions: AND TWICE DAILY NEEDED sennosides [senna] 8.6 mg tablet 8.6 mg PO DAILY ketoconazole 2 % shampoo 1 applic TOPICAL Q3D diphenhydramine HCl [Banophen] 50 mg capsule 50 mg PO Q6H PRN (Reason: itching) loperamide 2 mg capsule 2 mg PO Q6H PRN (Reason: loose stool) acetaminophen 500 mg tablet 500 mg PO Q6H nystatin 100,000 unit/gram powder 1 applic TOPICAL BID PRN albuterol sulfate 90 mcg/actuation HFA aerosol inhaler 1 inh INHALATION Q4H PRN (Reason: bronchospasm) icosapent ethyl [Vascepa] 1 gram capsule 2 g PO BID Humulin R U-500 (Conc) Kwikpen 500 unit/mL (3 mL) insulin pen 100 unit SUBCUT TID potassium chloride 20 mEq tablet extended release 20 meq PO DAILY Qty: 10 2RF clotrimazole 1 % cream 1 applic topical BID Rx Instructions: GROIN,PERIAREA AND ABDOMIN fluconazole 150 mg tablet 150 mg PO TUFR@09 gatifloxacin 0.5 % drops 1 drp ophthalmic (eye) QID ketorolac 0.5 % drops 1 drp ophthalmic (eye) QID Rx Instructions: STOP DATE 08/11/22 ergocalciferol (vitamin D2) 1,250 mcg (50,000 unit) capsule 50,000 unit PO WE@09 carvedilol 25 mg Tablet 25 mg PO Q12H 30 Days Qty: 60 0RF nystatin 100,000 unit/gram powder 1 applic topical BID Qty: 30 1RF hydrocortisone 2.5 % cream 1 applic topical BID PRNQty: 30 1RF cephalexin 500 mg capsule 500 mg PO TID 10 Days Qty: 30 0RF ammonium lactate 12 % lotion 1 applic topical BID Qty: 225 0RF metoprolol succinate 200 mg tablet extended release 24 hr 200 mg PO DAILY rosuvastatin 20 mg tablet 40 mg PO QPM isosorbide mononitrate 60 mg tablet extended release 24 hr 60 mg PO DAILY Ozempic 1 mg/dose (4 mg/3 mL) pen injector 4 mg subcut .weekly insulin glargine [Basaglar KwikPen U-100 Insulin] 100 unit/mL (3 mL) insulin pen 30 unit subcut BID Follow Up/Referrals: Provider,Not a Local [Primary Care Provider] - Stand Alone [facility] Inst[facility]
[2023-12-27 05:51] VITALS: TEMP 36.6
[2023-12-27] MEDS: CYCLOBENZAPRINE HCL 10 MG TABLET 5 MG PO (05:51)
[2023-12-27] MEDS: CELECOXIB 200 MG CAPSULE PO (05:51)
[2023-12-27] MEDS: ACETAMINOPHEN 500 MG TABLET 1000 MG PO (05:51)
--- OUTSIDE RECORDS SUMMARY | 2023-12-27 06:09 | XMS_ITS | CCD ---
Author Name Cecilio Durham feliberto Address [address] [facility] [address] [place] [address] Phone Organization [facility] Phone Care Team Providers Care Radiology Director Name Role Phone Harrison Durham Primary Care Provider Leona vailable Harrison Durham Chronic Care Management U navailable Summary Purpose DataExchange Insurance Providers Payer name Policy type / Coverage type Covered alliance party ID Effective Begin Date Effective End Date [place] Part B [id number] Unknown Unknown Medicaid ID Medicare Part B [id number] Unknown Unknown Family history Sister Brittany Suggs [...] Unknown Snf 09/03/[address]: 0792005 Non-Smoker / No History of Smoking 09/02/[address]: 200622577 No Alcohol Consum ption 09/02/2020 Allergies, Adverse Reactions, Alerts Substance Reaction Codes Entered Date Inactivated Date Status * NO KNOWN FOOD ALLERGIES Unknown 07/13/2023 No Inactive Date Active LISINOPRIL RxNorm: 68832 02/12/2020 No Inactive Da te Active Metformin HCl Unknown 02/12/2020 No Inactive Cristiano e Active * NO KNOWN ENVIRONMENTAL ALLERGIES Unknown 07/13/2023 No Inactive Date Active Problems Condition Codes Effective Dates Condition St atus Hypokalemia ICD-10: E87.6 ICD-9: 276.8 11/09/2023 Active Lower extremity edema ICD-10: R60.0 ICD-9: 782.3 11/09/2023 Active Major depression, recurrent ICD-10: F33. 9 ICD-9: 296.30 11/09/2023 Active Onychogryposis ICD-10: L60.2 ICD-9: 703.8 11/09/2023 Active PVD (peripheral vascular disease) ICD-10 [...] E78. 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 Other halfway (current) dr ug [...] failure ICD-10: I11.9 ICD-9: 402.90 09/07/2023 Active Recurrent major depressive disorder, in [...] 09/07/2023 Resolved Coronary artery disease invo lving [place] [...] Fill Instructions torsemide 20 mg tablet RxNorm: 757896 Take 1 Tablet(s) Oral QD 10/26/19 24 024 Inactive potassium chloride ER 20 mEq tablet,extended release RxNorm: 19800522 Take 2 Tablet(s) Oral BID 10/26/19 24 025 Active torsemide 20 mg tablet RxNorm: 905433 Take 1 Tablet(s) Oral QD 10/26/19 24 Inactive potassium chloride ER 20 mEq tablet,extended release RxNorm: 19800522 Take 2 Tablet(s) Oral BID 10/26/19 24 024 Inactive Artificial Tears (PF) 0.1 %-0.3 % drops in a dropperette RxNorm: 681275 Apply 1-2 Drop(s) Both eyes BID as needed 09/28/19 24 025 Active erythromycin 5 mg/gram (0.5 %) eye ointment RxNorm: 519267 Apply 1 Application Both eyes QHS every night at bedtime Instill ~1 cm ribbon into affected eye 09/28/19 24 024 Inactive Artificial Tears (PF) 0.1 %-0.3 % drops in a dropperette RxNorm: 343306 Apply 1-2 Drop(s) Both eyes BID as needed 09/28/19 24 Inactive erythromycin 5 mg/gram (0.5 %) eye ointment RxNorm: 800417 Apply 1 Application Both eyes QHS every night at bedtime Instill ~1 cm ribbon into affected eye 09/28/19 24 Inactive acetaminophen 500 mg tablet RxNorm: 603571 (MAX APAP:4GM/24HR) Take 1 Tablet(s) Oral TID as needed for pain 09/24/19 24 024 Inactive carvedilol 25 mg tablet RxNorm: 295710 Take 1 Tablet(s) Oral QD 09/08/19 24 No Stop Date Active pregabalin 100 mg capsule RxNorm: 474745 Take 1 Capsule(s) Oral QAM every morning 09/07/19 24 024 Active rosuvastatin 40 mg tablet RxNorm: 719734 Take 1 Tablet(s) Oral QPM every evening 07/13/19 24 No Stop Date Active ezetimibe 10 mg tablet RxNorm: 497255 Take 1 Tablet(s) Oral QD 07/13/19 24 No Stop Date Active bisacodyl 10 mg rectal suppository RxNorm: 990553 Insert 1 Suppository Rectal QD as needed 07/13/19 24 No Stop Date Active polyethylene glycol 3350 17 gram/dose oral powder RxNorm: 462610 Take 17 Gram(s) Oral BID as needed mix in 4-8ox water 07/13/19 24 No Stop Date Active ketoconazole 2 % shampoo RxNorm: 899775 Apply 1 Application Topical UD as directed 07/13/19 24 No Stop Date Active aripiprazole 15 mg tablet RxNorm: 641553 Take 1/2 Tablet(s) Oral QD 07/13/19 24 No Stop Date Active Ozempic 1 mg/dose (4 mg/3 mL) subcutaneous pen injector RxNorm: 3006491 Inject 1 Milligram(s) Subcutaneous QW once a week 07/13/19 24 No Stop Date Active Guaifenesin AC 10 mg-100 mg/5 mL oral liquid RxNorm: 646052 Take 10 Milliliter(s) Oral Q4H every four hours as needed 07/13/19 24 No Stop Date Active isosorbide mononitrate ER 60 mg tablet,extended release 24 hr RxNorm: 234069 Take 1 Tablet(s) Oral QD 07/13/19 24 No Stop Date Active ammonium lactate 12 % topical cream RxNorm: 370572 Apply 1 Application Topical BID 07/13/19 24 No Stop Date Active hydrocortisone 2.5 % topical cream RxNorm: 144374 Apply 1 Application Topical BID as needed 07/13/19 24 No Stop Date Active rosuvastatin 20 mg sprinkle capsule RxNorm: 2647767 Take 1 Capsule(s) Oral QD 07/13/19 24 No Stop Date Active Vascepa 1 gram capsule RxNorm: 6478248 Take 2 Capsule(s) Oral BID 07/13/19 24 No Stop Date Active venlafaxine ER 75 mg capsule,extended release 24 hr RxNorm: 824034 Take 3 Capsule(s) Oral QD 07/13/19 24 No Stop Date Active Basaglar KwikPen U-100 Insulin 100 unit/mL (3 mL) subcutaneous RxNorm: 0515856 Inject 30U SubQ twice daily 07/07/19 24 025 Active Please dispense one month supply. Basaglar KwikPen U-100 Insulin 100 unit/mL (3 mL) subcutaneous RxNorm: 0041655 Inject 30U SubQ twice daily 07/07/19 24 024 Inactive Please dispense one month supply. pregabalin 150 mg capsule RxNorm: 320861 Take 1 Capsule(s) Oral QHS every night at bedtime 07/05/19 24 024 Active pregabalin 150 mg capsule RxNorm: 664707 Take 1 Capsule(s) Oral QHS every night at bedtime 07/05/19 24 024 Inactive polyethylene glycol 3350 17 gram/dose oral powder RxNorm: 681894 Take 1 Packet Oral QD as needed (1 packet = 17g) mix with 4-8oz of liquid 06/15/19 24 024 Inactive bisacodyl 10 mg rectal suppository RxNorm: 201501 Insert one suppository per rectum once daily as needed for constipation 06/15/19 24 024 Inactive bisacodyl 10 mg rectal suppository RxNorm: 522914 Insert one suppository per rectum once daily as needed for constipation 06/15/19 24 024 Inactive pregabalin 100 mg capsule RxNorm: 963946 Take 1 Capsule(s) Oral QAM every morning 04/27/20 23 024 Inactive Levemir FlexPen 100 unit/mL (3 mL) solution subcutaneous insulin pen RxNorm: 376957 Inject 30 Unit(s) Subcutaneous BID 04/27/20 23 024 Inactive rosuvastatin 40 mg tablet RxNorm: 227230 Take 1 Tablet(s) Oral QPM every evening 04/16/20 23 024 Inactive D/C rosuvastatin 20mg venlafaxine ER 75 mg capsule,extended release 24 hr RxNorm: 596206 Take 3 Capsule(s) Oral QD 04/14/20 23 023 Inactive pregabalin 100 mg capsule RxNorm: 036956 Take 1 Capsule(s) Oral QAM every morning [...] meter clotrimazole 1 % topical cream RxNorm: 064141 Take apply topically to abdominal folds twice daily for 14 days 03/12/20 024 Inactive Ozempic 1 mg/dose (4 mg/3 mL) subcutaneous pen injector RxNorm: 1929795 Inject 1 Milligram(s) Subcutaneous QW once a week 03/11/20 23 023 Inactive rosuvastatin 20 mg tablet RxNorm: 392979 Take 1 Tablet(s) Oral QD 02/26/20 023 Inactive d/c pravastatin 80mg Ozempic 1 mg/dose (4 mg/3 mL) subcutaneous pen injector RxNorm: 7329505 Inject 1 Milligram(s) Subcutaneous QW once a week 02/20/20 23 023 Inactive pregabalin 150 mg capsule RxNorm: 537461 Take 1 Capsule(s) Oral HS at bed time 02/19/20 23 023 Inactive pregabalin 100 mg capsule RxNorm: 945005 Take 1 Capsule(s) Oral QAM every morning 02/18/20 23 023 Inactive venlafaxine ER 75 mg capsule,extended release 24 hr RxNorm: 597389 Take 3 Capsule(s) Oral QD 02/04/20 23 023 Inactive FreeStyle Chema 2 Sensor kit RxNorm: use as directed 02/04/20 23 023 Inactive FreeStyle Chema 2 Sensor kit RxNorm: use as directed 02/04/20 23 024 Inactive fluconazole 150 mg tablet RxNorm: 055878 Take 1 Tablet(s) Oral on day 3 and on day 6 02/03/20 23 024 Active chlorthalidone 25 mg tablet RxNorm: 243928 Take 1 Tablet(s) Oral QAM every morning 02/03/20 No Stop Date Active venlafaxine ER 150 mg capsule,extended release 24 hr RxNorm: 304757 Take 1 Capsule(s) Oral QD 02/03/20 23 023 Inactive acetaminophen 500 mg tablet RxNorm: 903660 1 TABLET ORALLY 3 TIMES DAILY (MAX APAP:4GM/24HR) 12/15/19 23 023 Inactive clotrimazole 1 % topical cream RxNorm: 479337 apply 1g topically to top of feet and in between toes BID 12/09/19 23 023 Inactive potassium chloride ER 20 mEq tablet,extended release RxNorm: 209144 Take 1 Tablet(s) Oral BID 12/09/19 23 024 Inactive d/c 20mEq once daily (sent from hospital) nystatin 100,000 unit/gram topical powder RxNorm: 300170 APPLY TO AFFECTED AREAS TOPICALLY 2 TIMES DAILY 11/21/19 23 024 Inactive Nystop 100,000 unit/gram topical powder RxNorm: 960879 Apply to abd folds, under breasts and L side of groin Topical BID x 14 days, then BID PRN 11/20/19 23 023 Inactive dx: yeast dermatitis Bengay Ultra Strength 4 %-30 %-10 % topical cream RxNorm: 701743 Apply 1 Gram(s) Topical QID PRN to feet and legs for neuropathic pain 11/11/19 23 024 Inactive clotrimazole 1 % topical cream RxNorm: 045238 Apply 1/2 Gram(s) Topical BID Apply to affected areas of groin, periarea, and abdominal topically 2 times daily 11/10/19 23 023 Inactive hydrocortisone 2.5 % topical cream RxNorm: 095350 Apply 1/2 Gram(s) Topical BID as needed 11/10/19 024 Inactive Humulin R U-500 (Concentrated) Insulin 500 unit/mL subcutaneous soln RxNorm: 511457 Inject 100 Unit(s) Subcutaneous TID 10/07/19 024 Inactive Levemir FlexPen 100 unit/mL (3 mL) solution subcutaneous insulin pen RxNorm: 020833 Inject 30 Unit(s) Subcutaneous BID 10/07/19 023 Inactive Ozempic 0.25 mg or 0.5 mg (2 mg/3 mL) subcutaneous pen injector RxNorm: 2353860 Inject 1/2 Milligram(s) Subcutaneous QW once a week 10/07/19 024 Inactive aripiprazole 15 mg tablet RxNorm: 861193 1/2 TAB (7.5MG) ORALLY DAILY (DX:MAJOR DEPRESSIVE DISORDER) 09/23/19 023 Inactive Lancets,Thin 28 gauge RxNorm: Use 1 as directed QID 09/15/19 23 024 Inactive Accu-Chek Guide test strips RxNorm: Use 1 Test Strip QID 09/15/19 023 Inactive ok to substitute with any covered alternative test strip torsemide 20 mg tablet RxNorm: 681607 Take 1 Tablet(s) Oral BID 09/09/19 024 Inactive d/c once daily dosing carvedilol 25 mg tablet RxNorm: 072988 Take 1 Tablet(s) Oral QD 08/25/19 024 Inactive pregabalin 150 mg capsule RxNorm: 727318 1 Capsule(s) Oral HS at bed time 08/18/19 023 Inactive pregabalin 100 mg capsule RxNorm: 913035 1 Capsule(s) Oral QAM every morning 08/18/19 023 Inactive carvedilol 25 mg tablet RxNorm: 964593 1 Tablet(s) Oral QD 07/28/19 023 Inactive lisinopril 20 mg tablet RxNorm: 716251 Give 1 Tablet(s) Oral QD 07/28/19 023 Inactive Lyrica 150 mg capsule RxNorm: 901723 Take 1 Capsule(s) Oral QHS every night at bedtime 07/19/19 23 023 Inactive d/c 100mg dose Diflucan 150 mg tablet RxNorm: 449894 Take 1 Tablet(s) Oral QD repeat on day 3 and 6 07/19/19 23 023 Inactive pregabalin 100 mg capsule RxNorm: 578089 Take 1 Capsule(s) Oral QAM every morning 07/19/19 23 023 Inactive gatifloxacin 0.5 % eye drops RxNorm: 653094 Instill 1 Drop(s) as directed TID Instill 1 drop in to affected eye(s) starting 1 day prior to surgery and continue until gone (do not exceed 4 weeks). 07/13/19 23 023 Inactive carvedilol 25 mg tablet RxNorm: 101040 2 Tablet(s) Oral BID 07/13/19 23 023 Inactive Humulin R Regular U-100 Insulin 100 unit/mL injection solution RxNorm: 023953 85 Unit(s) Injection TID 07/13/19 23 023 Inactive ketorolac 0.5 % eye drops RxNorm: 499674 Instill 1 Drop(s) as directed QID Instill 1 drop into affected eye(s) 4 times daily starting 1 day prior to surgery and continue until gone (do not exceed 4 weeks). 07/13/19 023 Inactive Diflucan 150 mg tablet RxNorm: 870392 Take 1 Tablet(s) Oral QD repeat on day 3 and 6 06/30/19 23 023 Inactive Accu-Chek Guide test strips RxNorm: Use 1 Test Strip QID Use 1 test strip to monitor blood glucose 4 times daily and as needed. Dx:E11.42. 06/23/19 23 023 Inactive ok to substitute with any covered alternative test strip dextromethorphan-gu aifenesin 10 mg-100 mg/5 mL oral liquid RxNorm: 157902 Take 10 Milliliter(s) Oral every 4 hours as needed for cough 06/19/19 23 023 Inactive dextromethorphan-gu aifenesin 10 mg-100 mg/5 mL oral liquid RxNorm: 650288 Take 10 Milliliter(s) Oral every 4 hours as needed for cough 06/19/19 023 Inactive Lyrica 150 mg capsule RxNorm: 095265 Take 1 Capsule(s) Oral QHS every night at bedtime 06/18/19 023 Inactive d/c 100mg dose aripiprazole 15 mg tablet RxNorm: 386936 1/2 TAB (7.5MG) ORALLY DAILY (DX:MAJOR DEPRESSIVE DISORDER) 06/05/19 023 Inactive pregabalin 100 mg capsule RxNorm: 343554 1 Capsule(s) Oral QAM every morning 06/02/19 023 Inactive Banophen 50 mg capsule RxNorm: 3149938 Take 1 Capsule(s) Oral Q6H every 6 hours as needed 05/19/19 No Stop Date Active Novolog Flexpen U-100 Insulin aspart 100 unit/mL (3 mL) subcutaneous RxNorm: 8348574 Inject 10 Unit(s) Subcutaneous QHS every night at bedtime with nighttime snack 04/08/20 022 Inactive Novolog Flexpen U-100 Insulin aspart 100 unit/mL (3 mL) subcutaneous RxNorm: 9133050 Inject 42 Unit(s) Subcutaneous TID in addition to sliding scale 04/08/20 022 Inactive d/c 36u albuterol sulfate HFA 90 mcg/actuation aerosol inhaler RxNorm: 7686596 Take 2 Puff(s) Inhalation Q4H every four hours as needed as needed for SOB, cough, or wheezing 04/07/20 030 Active Banophen 50 mg capsule RxNorm: 0427344 Take 1 Capsule(s) Oral Q6H every 6 hours as needed 04/06/20 023 Inactive diphenhydramine 50 mg tablet RxNorm: 8715986 Take 1 Tablet(s) Oral Q6H every 6 hours as needed 04/06/20 022 Inactive diphenhydramine 50 mg tablet RxNorm: 5592996 1 Tablet(s) Oral Q6H every 6 hours as needed 04/06/20 22 022 Inactive Abilify 15 mg tablet RxNorm: 573540 1/2 Tablet(s) Oral QD 03/10/20 22 023 Inactive Shingrix (PF) 50 mcg/0.5 mL intramuscular suspension, kit RxNorm: 8600777 Administer 1/2 Milliliter(s) Intramuscular QD one time shingrix step 2 ( step 1 given 11/04/21) WITH needle - Nursing please administer upon arrival and once administered post a bridge message with date of administration, patient financial services manager, expiration date, and lot# so we can update [facility] 02/18/20 22 022 Inactive dispense with needle Shingrix (PF) 50 mcg/0.5 mL intramuscular suspension, kit RxNorm: 4881432 Administer 1/2 Milliliter(s) Intramuscular QD one time shingrix step 2 ( step 1 given 11/04/21) WITH needle - Nursing please administer upon arrival and once administered post a bridge message with date of administration, patient financial services manager, expiration date, and lot# so we can update [facility] 02/18/20 22 022 Inactive dispense with needle polyethylene glycol 3350 17 gram/dose oral powder RxNorm: 460518 Take 17=1 capful Gram(s) Oral QD mix with 4-8oz of liquid 01/08/20 22 023 Inactive take this in addition to BID prn order Lyrica 100 mg capsule RxNorm: 734651 Take 1 Capsule(s) Oral QAM every morning 01/08/20 22 022 Inactive d/c 50mg dose acetaminophen 500 mg tablet RxNorm: 892216 Take 1 Tablet(s) Oral TID 01/08/20 22 022 Inactive d/c PRN order Lyrica 150 mg capsule RxNorm: 011310 Take 1 Capsule(s) Oral QHS every night at bedtime 01/08/20 22 023 Inactive d/c 100mg dose Abilify 5 mg tablet RxNorm: 909596 Take 1 Tablet(s) Oral QD take 1 tab po QD #30 refill 5 dx: MDD 12/12/19 22 022 Inactive Abilify 5 mg tablet RxNorm: 042998 Take 1 Tablet(s) Oral QD take 1 tab po QD #30 refill 5 dx: MDD 12/12/19 22 022 Inactive Novolog Flexpen U-100 Insulin aspart 100 unit/mL (3 mL) subcutaneous RxNorm: 3257185 Inject 42 Unit(s) Subcutaneous TID in addition to sliding scale 12/10/19 22 Inactive d/c 36u chlorthalidone 25 mg tablet RxNorm: 087554 Take 1 Tablet(s) Oral QAM every morning 12/10/19 22 023 Inactive pregabalin 50 mg capsule RxNorm: 469030 Take 1 Capsule(s) Oral QAM every morning 11/12/19 22 022 Inactive tetanus-diphtheria toxoids-Td 2 Lf unit-2 Lf unit/0.5 mL IM suspension RxNorm: 139 Take 0.5 Miscellaneous Intramuscular 11/12/19 022 Inactive need tdap - nursing to administer upon arrival pregabalin 50 mg capsule RxNorm: 702275 Take 1 Capsule(s) Oral QAM every morning 10/16/19 022 Inactive pregabalin 50 mg capsule RxNorm: 035543 Take 1 Capsule(s) Oral QAM every morning 10/16/19 22 022 Inactive pregabalin 50 mg capsule RxNorm: 997485 1 Capsule(s) Oral QAM every morning 10/15/19 22 022 Inactive Shingrix (PF) 50 mcg/0.5 mL intramuscular suspension, kit RxNorm: 4566528 Administer 1/2 Milliliter(s) Intramuscular one time Nursing please administer upon arrival and once administered post a bridge message with date of administration, patient financial services manager, expiration date, and lot# so we can update [facility]. 10/09/19 22 022 Inactive shingrix step 1 Shingrix (PF) 50 mcg/0.5 mL intramuscular suspension, kit RxNorm: 8179505 Administer 1/2 Milliliter(s) Intramuscular one time Nursing please administer upon arrival and once administered post a bridge message with date of administration, patient financial services manager, expiration date, and lot# so we can update [facility]. 10/09/19 22 022 Inactive shingrix step 1 cholecalciferol (vitamin D3) 1,250 mcg (50,000 unit) capsule RxNorm: 905340 Take 1 Capsule(s) Oral QW once a [...] aspart 100 unit/mL (3 mL) subcutaneous RxNorm: 0823193 Inject 10 Unit(s) Subcutaneous QHS every night at bedtime with nighttime snack 10/08/19 22 Inactive Shingrix (PF) 50 mcg/0.5 mL intramuscular suspension, kit RxNorm: 7381988 ADMINISTER 2-DOSE SERIES PER CDC GUIDELINES 10/08/19 22 Active Shingrix (PF) 50 mcg/0.5 mL intramuscular suspension, kit RxNorm: 9656755 ADMINISTER 2-DOSE SERIES PER CDC GUIDELINES 10/08/19 22 Inactive Novolog Flexpen U-100 Insulin aspart 100 unit/mL (3 mL) subcutaneous RxNorm: 0861983 Inject 36 Unit(s) Subcutaneous TID in addition to sliding scale 10/08/19 22 Inactive Novofine Autocover 30 gauge x 1/3 needle RxNorm: Use 1 Miscellaneous UD as directed Use 1 needle as directed to administer insulin 5 times a day Dx:E11.42. 10/03/19 22 Inactive ok to substitute with any covered alternative pen needle benzoyl peroxide 10 % topical cleanser RxNorm: 360341 Apply 1 Application Topical QD apply to face, wash rinse and dry once daily (may change to QOD if drying) 08/19/19 22 Inactive (%covered by insurance) #60ml refill 11 dx: acne benzoyl peroxide 10 % topical cleanser RxNorm: 822943 Apply 1 Application Topical QD apply to face, wash rinse and dry once daily (may change to QOD if drying) 08/19/19 22 022 Inactive (%covered by insurance) #60ml refill 11 dx: acne benzoyl peroxide 10 % topical cleanser RxNorm: 709890 Apply 1 Application Topical QD apply to face, wash rinse and dry once daily (may change to QOD if drying) 08/19/19 22 022 Inactive (%covered by insurance) #60ml refill 11 dx: acne Lyrica 50 mg capsule RxNorm: 033911 Take 1 Capsule(s) Oral QAM every morning Take 1 capsule by mouth once daily 08/19/19 022 Inactive benzoyl peroxide 10 % topical cleanser RxNorm: 878155 Apply 1 Application Topical QD apply to face, wash rinse and dry once daily (may change to QOD if drying) 08/19/19 22 022 Inactive (%covered by insurance) #60ml refill 11 dx: acne Lyrica 100 mg capsule RxNorm: 915936 Take 1 Capsule(s) Oral QHS every night at bedtime Take 1 capsule by mouth once daily at bedtime 08/19/19 022 Inactive Lyrica 100 mg capsule RxNorm: 893290 Take 1 Capsule(s) Oral QHS every night at bedtime Take 1 capsule by mouth once daily at bedtime 08/16/19 Inactive Lyrica 50 mg capsule RxNorm: 046593 Take 1 Capsule(s) Oral QAM every morning Take 1 capsule by mouth once daily 08/16/19 Inactive Levemir FlexTouch U-100 Insulin 100 unit/mL (3 mL) subcutaneous pen RxNorm: 561605 Inject 86 Unit(s) Subcutaneous BID 08/05/19 22 Inactive d/c 83units BID Lyrica 100 mg capsule RxNorm: 729618 Take 1 Capsule(s) Oral QHS every night at bedtime Take 1 capsule by mouth once daily at bedtime 07/14/19 22 022 Inactive Lyrica 50 mg capsule RxNorm: 788197 Take 1 Capsule(s) Oral QAM every morning Take 1 capsule by mouth once daily 07/14/19 Inactive Levemir FlexTouch U-100 Insulin 100 unit/mL (3 mL) subcutaneous pen RxNorm: 010869 Inject 83 Unit(s) Subcutaneous BID 07/08/19 22 [...] test strip hydralazine 50 mg tablet RxNorm: 141668 Take 1 Tablet(s) Oral QID 05/05/20 21 022 Inactive venlafaxine ER 225 mg tablet,extended release 24 hr RxNorm: 586443 Take 1 Tablet(s) Oral QD 05/05/20 21 021 Inactive venlafaxine ER 225 mg tablet,extended release 24 hr RxNorm: 331518 Take 1 Tablet(s) Oral QD 05/05/20 022 Inactive isosorbide mononitrate ER 30 mg tablet,extended release 24 hr RxNorm: 116461 Take 1 Tablet(s) Oral QD 05/05/20 024 Inactive hydralazine 50 mg tablet RxNorm: 345705 Take 1 Tablet(s) Oral QID 05/05/20 21 021 Inactive aspirin 81 mg tablet,delayed release RxNorm: 119380 Take 1 Tablet(s) Oral QD 03/31/20 022 Inactive Vitamin D2 1,250 mcg (50,000 unit) capsule RxNorm: 3841665 Take 1 Capsule(s) Oral QW once a week x 12 weeks 03/31/20 022 Inactive Vitamin D2 1,250 mcg (50,000 unit) capsule RxNorm: 9519575 Take 1 Capsule(s) Oral QW once a week 03/31/20 021 Inactive Zetia 10 mg tablet RxNorm: 283145 Take 1 Tablet(s) Oral QD 03/31/20 024 Inactive Zetia 10 mg tablet RxNorm: 486431 Take 1 Tablet(s) Oral QD 03/31/20 021 Inactive hydralazine 25 mg tablet RxNorm: 773879 Take 1 Tablet(s) Oral QID 03/31/20 021 Inactive hydralazine 25 mg tablet RxNorm: 042683 Take 1 Tablet(s) Oral QID 03/31/20 021 Inactive hydralazine 10 mg tablet RxNorm: 637860 Take 1 Tablet(s) Oral QID 03/03/20 21 021 Inactive cephalexin 500 mg tablet RxNorm: 202485 Take 1 Tablet(s) Oral QID 02/27/20 021 Inactive cephalexin 500 mg tablet RxNorm: 432318 Take 1 Tablet(s) Oral QID 02/27/20 021 Inactive lisinopril 40 mg tablet RxNorm: 272083 Take 1 Tablet(s) Oral QD 02/11/20 023 Inactive Eliquis 5 mg tablet RxNorm: 0976220 Take 1 Tablet(s) Oral BID 01/05/20 21 022 Inactive Eliquis 5 mg tablet RxNorm: 2114121 Take 2 Tablet(s) Oral QD 01/01/20 21 021 Inactive Lyrica 50 mg capsule RxNorm: 895697 Take 1 Capsule(s) Oral QAM every morning 12/24/19 021 Inactive Lyrica 100 mg capsule RxNorm: 800387 Take 1 Capsule(s) Oral QHS every night at bedtime 12/24/19 021 Inactive clotrimazole 1 % topical cream RxNorm: 026837 Apply to right foot and toes Topical BID 12/04/19 21 023 Inactive metoprolol succinate ER 200 mg tablet,extended release 24 hr RxNorm: 137534 Take 1 Tablet(s) Oral QD 12/04/19 023 Inactive ciprofloxacin 500 mg tablet RxNorm: 278637 Take 1 Tablet(s) Oral QD 11/30/19 021 Inactive DX ofloxacin otic drops Accu-Chek Guide test strips RxNorm: USE 1 TO CHECK GLUCOSE 4 TIMES DAILY AND NEEDED 11/15/19 023 Inactive Blood Glucose Test strips RxNorm: Use 1 Test Strip QID at PRN 11/05/19 21 023 Inactive E11.42 lisinopril 30 mg tablet RxNorm: 225444 Take 1 Tablet(s) Oral QD 10/30/19 021 Inactive lisinopril 20 mg tablet RxNorm: 968435 Take 1 Tablet(s) Oral QD 10/23/19 21 021 Inactive lisinopril 20 mg tablet RxNorm: 206729 Take 1 Tablet(s) Oral QD 10/23/19 21 021 Inactive lisinopril 10 mg tablet RxNorm: 872732 Take 1 Tablet(s) Oral QD 10/02/19 21 021 Inactive icosapent ethyl 1 gram capsule RxNorm: 7971128 Take 2 Capsule(s) (2 gm) Oral BID with meals 09/12/19 21 024 Inactive Okay to dispense one 2gm tab if you have that available. icosapent ethyl 1 gram capsule RxNorm: 0892328 Take 2 Capsule(s) Oral BID 09/12/19 21 021 Inactive Okay to dispense one 2gm tab if you have that available. amlodipine 10 mg tablet RxNorm: 969432 Take 1 Tablet(s) Oral QD 09/04/19 022 Inactive aspirin 81 mg tablet,delayed release RxNorm: 568316 Take 1 Tablet(s) Oral QD 09/04/19 21 021 Inactive Levemir FlexTouch U-100 Insulin 100 unit/mL (3 mL) subcutaneous pen RxNorm: 122276 Inject 150 Unit(s) Subcutaneous BID 09/04/19 022 Inactive venlafaxine ER 150 mg tablet,extended release 24 hr RxNorm: 786782 Take 1 Tablet(s) Oral QD 09/04/19 21 021 Inactive clotrimazole-betame thasone 1 %-0.05 % topical cream RxNorm: 379905 Apply to rash on red area on left abdomen/chest Topical BID 08/10/19 21 Inactive amlodipine 5 mg tablet RxNorm: 413925 Take 1 Tablet(s) Oral QD 07/31/19 21 021 Inactive cephalexin 500 mg tablet RxNorm: 187126 Take 1 Tablet(s) Oral BID BID - Twice Daily 07/31/19 21 021 Inactive Start 08/01/20 pantoprazole 40 mg tablet,delayed release RxNorm: 415459 Take 1 Tablet(s) Oral QAM every morning 07/08/19 022 Inactive senna 8.6 mg tablet RxNorm: 580836 Take 1 Tablet(s) Oral QD 07/08/19 21 022 Inactive carbamazepine 200 mg tablet RxNorm: 939033 Take 1 Tablet(s) Oral BID 07/08/19 022 Inactive clopidogrel 75 mg tablet RxNorm: 187093 Take 1 Tablet(s) Oral QD 07/08/19 021 Inactive Blood Glucose Test strips RxNorm: Use 1 Test Strip QID at PRN 07/08/19 21 Inactive E11.42 Novolog Flexpen U-100 Insulin aspart 100 unit/mL (3 mL) subcutaneous RxNorm: 2542193 Administer per sliding scale Milliliter(s) Subcutaneous TID 151-200: 10 u; 201-250: 20 u; 251-300: 30 u; 301-350: 40 u; 351-400: 50 u. 07/08/19 21 022 Inactive lisinopril 5 mg tablet RxNorm: 062698 Take 1 Tablet(s) Oral QD 07/08/19 021 Inactive Novolog Flexpen U-100 Insulin aspart 100 unit/mL (3 mL) subcutaneous RxNorm: 7851507 Inject 85 Unit(s) Subcutaneous TID 07/08/19 022 Inactive pravastatin 80 mg tablet RxNorm: 618237 Take 1 Tablet(s) Oral QHS every night at bedtime 07/08/19 023 Inactive clotrimazole 1 % topical cream RxNorm: 743018 Apply to bilateral groin areas Topical BID 07/08/19 022 Inactive metoprolol succinate ER 200 mg tablet,extended release 24 hr RxNorm: 637859 Take 1 Tablet(s) Oral QD 07/08/19 Inactive Vitamin D3 25 mcg (1,000 unit) tablet RxNorm: 118924 Take 1 Tablet(s) Oral QD 07/08/19 021 Inactive isosorbide dinitrate 30 mg tablet RxNorm: 006098 Take 1 Tablet(s) Oral QD 07/08/19 21 021 Inactive Levemir FlexTouch U-100 Insulin 100 unit/mL (3 mL) subcutaneous pen RxNorm: 553429 Inject 140 Unit(s) Subcutaneous BID 07/08/19 021 Inactive torsemide 20 mg tablet RxNorm: 374210 Take 1 Tablet(s) Oral QD 07/08/19 21 023 Inactive venlafaxine 75 mg tablet RxNorm: 204608 Take 1 Tablet(s) Oral QD 07/08/19 21 021 Inactive acetaminophen 500 mg tablet RxNorm: 393018 Take 1 Tablet(s) Oral TID as needed for headache 06/18/19 21 021 Inactive acetaminophen 500 mg tablet RxNorm: 527791 Take 1 Tablet(s) Oral TID as needed for headache 06/18/19 21 021 Inactive Lyrica 100 mg capsule RxNorm: 850102 Take 1 Capsule(s) Oral QHS every night at bedtime 06/11/19 21 021 Inactive Lyrica 50 mg capsule RxNorm: 048874 Take 1 Capsule(s) Oral QAM every morning 06/10/19 21 021 Inactive hydrocortisone 2.5 % topical cream RxNorm: 280774 Apply to bilateral groin creases Topical BID 05/15/20 20 021 Inactive clotrimazole 1 % topical cream RxNorm: 231654 Apply to bilateral groin areas Topical BID 05/15/20 20 021 Inactive Lyrica 50 mg capsule RxNorm: 609559 Take 1 Capsule(s) Oral QAM every morning 05/14/20 20 020 Inactive Lyrica 100 mg capsule RxNorm: 511741 Take 1 Capsule(s) Oral QHS every night [...] Inactive Nystop 100,000 unit/gram topical powder RxNorm: 890386 Apply to abd folds, under breasts and L side of groin Topical BID x 14 days, then BID PRN 04/08/20 20 Inactive dx: yeast dermatitis Lyrica 100 mg capsule RxNorm: 230846 Take 1 Capsule(s) Oral QHS every night at bedtime 03/13/20 20 Inactive Lyrica 50 mg capsule RxNorm: 547585 Take 1 Capsule(s) Oral QAM every morning 03/13/20 20 Inactive ketoconazole 2 % shampoo RxNorm: 415506 Apply Topical two times a week with showers 03/11/20 20 Inactive cholecalciferol (vitamin D3) 50 mcg (2,000 unit) tablet RxNorm: 933859 Take 1 Tablet(s) Oral QD 03/11/20 20 021 Inactive Zetia 10 mg tablet RxNorm: 096310 Take 1 Tablet(s) Oral QD 03/07/20 20 021 Inactive Zetia 10 mg tablet RxNorm: 725194 Take 1 Tablet(s) Oral QD 03/07/20 20 Inactive Lyrica 50 mg capsule RxNorm: 589603 Take 1 Capsule(s) Oral QAM every morning 02/15/20 20 Inactive Lyrica 100 mg capsule RxNorm: 730927 Take 1 Capsule(s) Oral QHS every night at bedtime 02/15/20 20 Inactive Lyrica 100 mg capsule RxNorm: 315651 Take 1 Capsule(s) Oral QHS every night at bedtime 02/15/20 20 Inactive Lyrica 50 mg capsule RxNorm: 176231 Take 1 Capsule(s) Oral QAM every morning 02/15/20 20 Inactive metoprolol succinate ER 200 mg tablet,extended release 24 hr RxNorm: 541163 Take 1 Tablet(s) Oral QD 03/28/20 23 Active loperamide 2 mg capsule RxNorm: 570033 Take 1 Capsule(s) Oral QID as needed 06/12/19 22 Active hydralazine 50 mg tablet RxNorm: 140702 Take 1 Tablet(s) Oral QID 08/12/19 23 Active venlafaxine ER 75 mg capsule,extended release 24 hr RxNorm: 736961 Take 3 Capsule(s) Oral QD 06/12/19 22 023 Inactive polyethylene glycol 3350 17 gram/dose oral powder RxNorm: 082353 Take 17=1 capful Gram(s) Oral BID as needed mix with 4-8oz of liquid 06/12/19 22 024 Inactive icosapent ethyl 1 gram capsule RxNorm: 6622265 Take 2 Capsule(s) (2 gm) Oral BID with meals 10/07/19 23 023 Inactive Okay to dispense one 2gm tab if you have that available. Levemir FlexTouch U-100 Insulin 100 unit/mL (3 mL) subcutaneous pen RxNorm: 807535 Inject 80 Unit(s) Subcutaneous BID 07/14/19 23 023 Inactive Novolog Flexpen U-100 Insulin aspart 100 unit/mL (3 mL) subcutaneous RxNorm: 4614181 Insert 30 Unit(s) Subcutaneous TID with meals 10/08/19 22 022 Inactive Medication Administered No Medication Administered data Reason For Visit No Reason For Visit data Plan of Care Planned Activity Notes Codes Status Date Patient Education: Patient Medication Summary Completed 11/29/2023 Appointment: Sandra Clark WPtel: [address] [place], [place] [id number] Telehealth Psych Follow Up 12/09 Appointment: Tapan Shirley WPtel: [phone] [facility] 10/26/2022 Referral: [facility] WPtel: [phone], [address] Referral Records Received 09/21/2022 Appointment: Tapan Shirley WPtel: [address] [facility] [address] [id number] [place] F/U 08/11/2022 Appointment: Tapan Shirley WPtel: [address] [facility] [address] [id number] [place] F/U 07/14/2022 Appointment: Tapan Shirley WPtel: [address] [facility] [address] [id number] [place] F/U 02/10/2022 Referral: [facility] WPtel: [phone] [facility] [address] [id number] [place] Referral Completed 05/28/2021 Referral: General Cardiology [...] attention.??Sister Jyotsna involved in his care cell# [phone]??Guardian: Giulia (tapan met in person 09/01/21), now has Lexii (same group as giulia)Lab Schedule: /September*September (CBC with diff, CMP, A1c)??March: (CBC, CMP, A1c, Lipids, VitD)10.15.2023: CBC, CMP Na 139, K2.6L, creat 1.45H, eGFR 54L, BG 513H, A1c, VitD 32.??11.01.2023: BMP Na 140, K3.7, BG 397 H. BUN 24H, Creat 1.09, eGFR 76L.??11.03.2023: ER labs CBC,??CMP K 3.9 Creat 1.0 eGFR 84 BG 395H6.: CT scan umbilical hernia and pulmonary nodule (solid 4 mm LLL and LLL calcified granuloma) will need CT scan w/o contrast in 1 year to monitor growth (due )ADEEL: Dr. Martines note from 11.08.2023 at [facility] (follow up 6 months) 12/14/2023
--- OUTSIDE RECORDS SUMMARY | 2023-12-27 06:10 | XMS_ITS | Referral Summary ---
Author Organization [facility] Address [address] [place] [address] Care Team Providers Care Electronics Lead Name Role Phone Services, [facility] Primary Care Provi sadia Prince Tobar [...] daily Active cholecalciferol (VITAMIN D3) 1250 mcg (10988 units) capsule Take 1,250 mcg by mouth every 7 days on Wednesdays. Active venlafaxine (EFFEXOR-XR) 75 MG 24 hr capsule Take 225 mg by mouth daily Active hydrALAZINE (APRESOLINE) 50 MG tablet Take 50 mg by mouth 4 times daily Active polyethylene glycol (MIRALAX) 17 GM/Dose powder Take 17 g by mouth daily Active nystatin (MYCOSTATIN) 218457 UNIT/GM external powder Apply topically 2 times [...] Next Due COVID-19 MONOVALENT 12+ (Pfizer) 06/25/2020,05/17 [id number] Novel Flu 05/07/2009 Hepatitis B, Adult 02/16/2014,10/12/2013, [...] Choose not to disclose 2021 8:14 AM INSPECTOR SALVAGE Last Filed Vital Signs Vital Sign Reading [...] without heart failure Atherosclerotic heart disease of [place] coronary artery without angina pectoris Body mass index (BMI) 60.0-69.9, adult (H) Chronic kidney disease, unspecified COMPREHENSIVE METABOLIC PANEL Routine 10/15/2023 3:13 PM CDT Hypertensive heart disease without heart failure Atherosclerotic heart disease of [place] coronary artery without angina pectoris Body mass index (BMI) 60.0-69.9, adult (H) Chronic kidney disease, unspecified CBC WITH PLATELETS AND DIFFERENTIAL Routine 10/15/2023 3:13 PM CDT Hypertensive heart disease without heart failure Atherosclerotic heart disease of [place] coronary artery without angina pectoris Body mass index (BMI) 60.0-69.9, adult (H) Chronic kidney disease, unspecified VITAMIN D DEFICIENCY SCREENING Routine 10/15/2023 3:13 PM CDT Hypertensive heart disease without heart failure Atherosclerotic heart disease of [place] coronary artery without angina pectoris Body mass index (BMI) 60.0-69.9, adult (H) Chronic kidney disease, unspecified HEMOGLOBIN A1C Routine 10/15/2023 3:13 PM CDT Hypertensive heart disease without heart failure Atherosclerotic heart disease of [place] coronary artery without angina pectoris Body mass [...] LAB - BLOOD ORDERABL ES RH LABORATORY [facility] [address] [facility] Lab (1st floor, no room number) [place] [address], [facility] * Vitamin D Deficiency (10/15/2023 3:13 PM CDT) [facility] Vitamin D, Total (25-Hydroxy) 32 20 - 50 ng/mL 10/17/2023 4:24 PM CDT [facility] Comment:optimum levels Blood BLOOD SPECIMEN / Unknown Client Draw / Unknown 10/15/2023 3:13 PM CDT 10/15/2023 4:25 PM CDT Narrative [facility] - 10/17/2023 4:24 PM CDT Season, race, dietary intake, and treatment affect the concentration of 37-rupauwe-Haisqnf D. Values may decrease during winter months and increase during summer months. Vitamin D determination is routinely performed by an immunoassay specific for 25 hydroxyvitamin D3. ??If an individual is on vitamin D2(ergocalciferol) supplementation, please specify 25 [place] vitamin D2 and D3 level determination by LCMSMS test VITD23. [facility] LAB - BLOOD ORDERABL ES U LABORATORY [facility] [place] [facility] [address] [facility], [address] [place] [address] * (ABNORMAL) Hemoglobin A1c (10/15/2023 3:13 PM CDT) Hemoglobin A1C 10.8(H) <5.7 % 10/15/2023 4:57 PM CDT [facility] Comment: Normal <5.7% Prediabetes 5.7-6.4% ?? Diabetes 6.5% or higher Note: Adopted from ADA consensus guidelines. Blood BLOOD SPECIMEN / Unknown Client Draw / Unknown 10/15/2023 3:13 PM CDT 10/15/2023 4:25 PM CDT [facility] LAB - BLOOD ORDERABL ES LABORATORY [facility] [address] [facility] Lab (1st floor, no room number) [place] [address] * (ABNORMAL) Comprehensive metabolic panel (10/15/2023 3:13 [...] [facility] LAB - BLOOD ORDERABL ES [facility] Acute Care Lab [address] Lab (1st floor, no room number) [place] [address], [facility] from Last 3 Months Advance Directives For more information, please contact: [phone] Documents on File Type Date Recorded Patient Human Resource Statistician Expl anation Advance Directives and Living Will [...] yissel musa/ legal decision maker Care Teams Electronics Lead Relationship Specialty Start Date End Date Services, [facility] [address] [place] [address], [address] [address] PCP - General 05/22/21 Prince Tobar MD [address] [place] [address] Cardiovascular Disease 03/26/22 Prince Tobar MD [address] [place] [address] Assigned Heart and Vascular Provider 05/30/22
--- OUTSIDE RECORDS SUMMARY | 2023-12-27 06:10 | XMS_ITS | Clinical Summary ---
Author Organization [facility] Address [address] [place] [address] Phone Care Team Providers Care Lead Oxide Mill Tender Name Role Phone Mellisa Shirley PA-C Primary Care Provider [phone] Allergies Active Allergy Reactions Criticality Noted Date [...] 05/26/2021 Active cholecalciferol (VITAMIN D-3) 1.25 MG (14257 UT) capsule Take 1,250 mcg by mouth [...] Diabetes: Visual Foot Exam 08/31/2022 Influenza Vaccine (#1) 2024 05/29/2021 Hepatitis B Vaccine Aged Out No longe r eligible based on patient's age to complete this topic Care Teams Lead Oxide Mill Tender Relationship Specialty Start Date End Date Mellisa Shirley PA-C PCP - General Physician Logistics Program Manager 08/31/22
--- OUTSIDE RECORDS SUMMARY | 2023-12-27 06:10 | XMS_ITS | Clinical Summary ---
Author Organization [facility] Address [address] [place] [address] Care Team Providers Care Stage Technician Name Role Phone Services, [facility] Physician Primary Care Provi sadia Prince Tobar [...] daily Active cholecalciferol (VITAMIN D3) 1250 mcg (64802 units) capsule Take 1,250 mcg by mouth every 7 days on Wednesdays. Active venlafaxine (EFFEXOR-XR) 75 MG 24 hr capsule Take 225 mg by mouth daily Active hydrALAZINE (APRESOLINE) 50 MG tablet Take 50 mg by mouth 4 times daily Active polyethylene glycol (MIRALAX) 17 GM/Dose powder Take 17 g by mouth daily Active nystatin (MYCOSTATIN) 023370 UNIT/GM external powder Apply topically 2 times [...] Next Due COVID-19 MONOVALENT 12+ (Pfizer) 06/25/2020,05/17 [id number] Novel Flu 05/07/2009 Hepatitis B, Adult 02/16/2014,10/12/2013, [...] Choose not to disclose 2021 8:14 AM SECURITY LEAD Last Filed Vital Signs Vital Sign Reading [...] 01/15/2024 10/15/2023, 08/0 06/2022, 05/17/2021 INFLUENZA VACCINE (#1) 2024 2, 05/29/2021, 05/07/2020, Additional history exists MEDICARE ANNUAL WELLNESS VISIT 02/03/2024 02/02/2023, 11/11/2021, 09/03/2020 BMP 10/14/2024 10/15/2023, 10/0 01/2023, 02/13/2023, Additional history exists ADVANCE CARE PLANNING 06/02/2026 06/02/2021 DTAP/TDAP/TD IMMUNIZATION (3 - Td or Tdap) 02/13/2032 02/12/2022, 05/07/2009 ZOSTER IMMUNIZATION Completed 03/24/2022, 2 HPV IMMUNIZATION Aged Out No longer e [...] without heart failure Atherosclerotic heart disease of [place] coronary artery without angina pectoris Body mass index (BMI) 60.0-69.9, adult (H) Chronic kidney disease, unspecified COMPREHENSIVE METABOLIC PANEL Routine 10/15/2023 3:13 PM CDT Hypertensive heart disease without heart failure Atherosclerotic heart disease of [place] coronary artery without angina pectoris Body mass index (BMI) 60.0-69.9, adult (H) Chronic kidney disease, unspecified CBC WITH PLATELETS AND DIFFERENTIAL Routine 10/15/2023 3:13 PM CDT Hypertensive heart disease without heart failure Atherosclerotic heart disease of [place] coronary artery without angina pectoris Body mass index (BMI) 60.0-69.9, adult (H) Chronic kidney disease, unspecified VITAMIN D DEFICIENCY SCREENING Routine 10/15/2023 3:13 PM CDT Hypertensive heart disease without heart failure Atherosclerotic heart disease of [place] coronary artery without angina pectoris Body mass index (BMI) 60.0-69.9, adult (H) Chronic kidney disease, unspecified HEMOGLOBIN A1C Routine 10/15/2023 3:13 PM CDT Hypertensive heart disease without heart failure Atherosclerotic heart disease of [place] coronary artery without angina pectoris Body mass index (BMI) 60.0-69.9, adult (H) Chronic kidney disease, unspecified from Last 3 Months Results * (ABNORMAL) CBC with platelets and differential (10/15/2023 3:13 PM CDT) [facility] WBC Count 5.5 4.0 - 11.0 10e3/uL [...] [facility] LAB - BLOOD ORDERABL ES LABORATORY [facility] Lab [address] [facility] Lab (1st floor, no room number) [place] [address], [facility] * Vitamin D Deficiency (10/15/2023 3:13 PM CDT) [facility] Vitamin D, Total (25-Hydroxy) 32 20 - 50 ng/mL 10/17/2023 4:24 PM CDT [facility] Comment:optimum levels Blood BLOOD SPECIMEN / Unknown Client Draw / Unknown 10/15/2023 3:13 PM CDT 10/15/2023 4:25 PM CDT Narrative [facility] - 10/17/2023 4:24 PM CDT Season, race, dietary intake, and treatment affect the concentration of 43-wlgfqqh-Lrnalgx D. Values may decrease during winter months and increase during summer months. Vitamin D determination is routinely performed by an immunoassay specific for 25 hydroxyvitamin D3. ??If an individual is on vitamin D2(ergocalciferol) supplementation, please specify 25 [place] vitamin D2 and D3 level determination by LCMSMS test [id number]. [facility] LAB - BLOOD ORDERABL ES [facility] [place] [facility] [address] [facility], [address] [place] [address] * (ABNORMAL) Hemoglobin A1c (10/15/2023 3:13 PM CDT) Hemoglobin A1C 10.8(H) <5.7 % 10/15/2023 4:57 PM CDT [facility] Comment: Normal <5.7% Prediabetes 5.7-6.4% ?? Diabetes 6.5% or higher Note: Adopted from ADA consensus guidelines. Blood BLOOD SPECIMEN / Unknown Client Draw / Unknown 10/15/2023 3:13 PM CDT 10/15/2023 4:25 PM CDT [facility] LAB - BLOOD ORDERABL ES LABORATORY [facility] Lab [address] [facility] Lab (1st floor, no room number) [place] [address] * (ABNORMAL) Comprehensive metabolic panel (10/15/2023 3:13 [...] [facility] LAB - BLOOD ORDERABL ES [facility] Lab [address] Lab (1st floor, no room number) [place] [address], [facility] from Last 3 Months Advance Directives For more information, please contact: [phone] Documents on File Type Date Recorded Patient Can Dragger Expl anation Advance Directives and Living Will [...] yissel nt/ legal decision maker Care Teams Stage Technician Relationship Specialty Start Date End Date Services, [facility] Physician [address] [place] [address], [facility] [address] [place], [place] [id number] PCP - General 05/22/21 Prince Tobar MD [address] [place] [address] Cardiovascular Disease 03/26/22 Prince Tobar MD [address] [place] [address] Assigned Heart and Vascular Provider 05/30/22
--- OUTSIDE RECORDS SUMMARY | 2023-12-27 06:10 | XMS_ITS | Clinical Summary ---
Author Organization [facility] Address [place], [place] [address] Care Team Providers Care Dedicated Owner Operator Name Role Phone Alan Lopez MD Unavailable Nishant Watson MD Unavailable Pcp, No Primary [...] type 2 diabetes mellitus (HC),Chronic edema JOBST #[id number] LRG FULL CALF KNEE BLACK 20-30 COMPRESSION [...] mg extended release tablet 24 HourIndications:CAD in paimiut artery Take 1 tablet by mouth once [...] call MD 0 04/01/2020 Active Insulin Safety [place], Disp, (NOVOFINE AUTOCOVER) 30 gauge x /3Indications:Cecelia [...] at 10 am and no showed. RN Engineering Geologist, Juanita Yoo, notified and she will attempt [...] No, referral made to Advance Care Plan Securities Analyst. Patient has identified Specific Treatment Preferences: No Sophia Méndez RN .................... 07/06/2011 2:30 PM] Specific limits to treatment preferences NOT identified: ASSUME FULL TREATMENT. Last Assessment & Plan: Advance Care Planning: Disease-specific Session Leonid Leahy is a [facility] patient. His PCP is Leandra Limon at [facility]. Advance care planning discussions were completed with Leonid. He identified his sister, Brittany Suggs, as his healthcare agent. Brittany was not present for ACP session. Understanding of Illness and Disease Star: Leonid identifies his medical condition as what [...] to live well: Daily visit to local [place] for a pop and to visit and catch up in the news with locals. Leonid obed with serious challenges in his life: Support of his sister, only a phone call away. Helps manage [facility] services. Leonid identifies the following fears [...] and primary care provider. [facility] Cho[facility] for [place] People booklet was sent to Leonid and his health care agent for review. Leonid requested all information be mailed to his sister and chief writer to place call to sister to explain process. Leonid identified the following concerns during his advance care planning session: needing assistance at home to ensure he is managing his medications and treatments to keep going as is and stabilizing. Is followed by Clinic Clinical Pharmacy Technician for needed services. Questions identified for his primary care provider: none Documents addressed during this advance care planning session: Health Care Directive completed and scanned into medical record. Statement of Treatment Preferences for advanced illness completed and scanned into the medical record. Recommendations/Plan: Leonid to review Advance Care Plan with Leonid's healthcare agent. Pictures Editor will be contacting Leonid's [facility] to explain services rendered, Leonid would benefit from: Home Care and/or Hospice when / if appropriate. 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 EQUIPMENT REPAIRER Body Mass Index 62.95 07/14/2022 6:10 PM WELDING EQUIPMENT REPAIRER Plan of Treatment Health Maintenance Due Date [...] Kay [employer] Medical Devices Implanted Type Area Prior Authorization Technician Device Identifier Shelf Expiration Date Model / Serial / Lot Iol Ravalli +20 Tecnis Zcb00 - [id number] Implanted:Qty: 1 on 07/15/2022 by Tanner Fuenets MD at [facility] Left: Eye [employer] 06/24/2025 ZCB00 20.0 / [id number] / Iol Ravalli +20 Tecnis Zcb00 - [id number] Implanted:Qty: 1 on 08/19/2022 by Tanner Fuentes MD at [facility] Right: Eye [employer] 06/24/2025 ZCB00 20.0 / [id number] / Procedures Procedure Name Priority Date/Time Associated Diagnosis Comments BASIC METABOLIC PANEL Routine 11/01/2023 10:10 AM CDT Hypokalemia LIPID PANEL Routine 03/13/2019 2:31 PM CDT Essential hypertriglyceridemia from Last 3 Months or Most Recently Relevant to Health Maintenance Results * (ABNORMAL) BASIC METABOLIC PANEL (11/01/2023 10:10 AM CDT) SODIUM 140 136 - 145 mmol/L 11/01/2023 12:09 PM CDT [facility] POTASSIUM 3.7 3.5 - 5.1 mmol/L 11/01/2023 12:09 PM CDT [facility] CHLORIDE 97(L) 98 - 107 mmol/L 11/01/2023 12:09 PM CDT [facility] CO2,TOTAL 32(H) 22 - 29 mmol/L 11/01/2023 12:09 PM CDT [facility] ANION GAP 11 5 - 18 11/01/2023 12:09 PM CDT [facility] GLUCOSE 397(H) 70 - 99 mg/dL 11/01/2023 12:09 PM CDT [facility] CALCIUM 9.2 8.8 - 10.2 mg/dL 11/01/2023 12:09 PM CDT [facility] BUN 24(H) 8 - 23 mg/dL 11/01/2023 12:09 PM CDT [facility] CREATININE 1.09 0.70 - 1.20 mg/dL 11/01/2023 12:09 PM CDT [facility] BUN/CREAT RATIO 22(H) 10 - 20 12:09 PM CDT [facility] eGFR 76(L) >90 mL/min/1.7 3m2 11/01/2023 12:09 PM CDT [facility] Comment:As of 2021, eG FR is [...] 11:43 AM CDT Harrison Munson DNP CHEMISTRY [facility] [address] [place] [address], * (ABNORMAL) LIPID PANEL (03/13/2019 2:31 PM CDT) CHOLESTEROL,TOTAL 193 100 - 199 mg/dL 03/13/2019 9:25 PM CDT [facility] TRIGLYCERIDES 715(H) <150 mg/dL 03/13/2019 9:25 PM CDT [facility] HDL CHOLESTEROL 29(L) >40 mg/dL 9 9:25 PM CDT [facility] NON-HDL CHOLESTEROL 164(H) <145 mg/dl 03/13/2019 9:25 PM CDT [facility] CHOL/HDL RATIO 6.66(H) <4.50 03/13/2019 9:25 PM CDT [facility] LDL CHOLESTEROL 9 9:25 PM CDT [facility] Comment:Invalid LDL when Tri g >400. PROVIDER ORDERED STATUS RANDOM 03/13/2019 9:25 PM CDT [facility] Blood BLOOD SPECIMEN / Unknown Venipuncture / Unknown 03/13/2019 2:31 PM CDT 03/13/2019 2:31 PM CDT Suellen Sosa MD CHEMISTRY [facility] [address] [place] [address], [place] from Last 3 Months or Most Recently Relevant to Health Maintenance Advance Directives Documents on File Type Date Recorded Patient Credit Collection Specialist Expl anation POLST 09/26/2014 3:45 PM AH [...] 9:30 PM 03/19/2009 6:17 PM Care Teams Dedicated Owner Operator Relationship Specialty Start Date End Date Pcp, No . PCP - General 07/15/22 Alan Lopez MD Internal Medicine Internal Medicine 11/20/10 Nishant Watson MD [address] [place] [address] Endocrinology 08/15/13
--- OUTSIDE RECORDS SUMMARY | 2023-12-27 06:10 | XMS_ITS | CCD ---
Author Name Cecilio Durham feliberto Address [address] [place] [address] Phone Organization [facility] Phone Care Team Providers Care Hospital Nursing Assistant Name Role Phone Harrison Durham Primary Care Provider Leona vailable Harrison Durham Chronic Care Management U navailable Summary Purpose DataExchange Insurance Providers Payer name Policy type / Coverage type Covered republican ID Effective Begin Date Effective End Date [place] Part B [id number] Unknown Unknown [place] Part B [id number] Unknown Unknown Family history Sister Brittany Suggs [...] Senior [facility] 09/03/[address]: 1654749 Non-Smoker / No History of Smoking 09/02/[address]: 561764080 No Alcohol Consum ption 09/02/2020 Allergies, Adverse Reactions, Alerts Substance Reaction Codes Entered Date Inactivated Date Status * NO KNOWN FOOD ALLERGIES Unknown 07/13/2023 No Inactive Date Active LISINOPRIL RxNorm: 28975 02/12/2020 No Inactive Da te Active Metformin HCl Unknown 02/12/2020 No Inactive Cristiano e Active * NO KNOWN ENVIRONMENTAL ALLERGIES Unknown 07/13/2023 No Inactive Date Active Problems Condition Codes Effective Dates Condition St atus 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 ICD-10: K59.01 ICD-9: 564.01 12/14/2023 Active Hx of deep venous thrombosis ICD-10: Z86 .718 ICD-9: V12.51 12/14/2023 Active Hypercoagulable state ICD-10: D68.59 ICD-9: 289.81 12/14/2023 Active Hypertensive heart disease w ithout heart failure ICD-10: I11.9 ICD-9: 402.90 12/14/2023 Active Stage 2 chronic kidney disea se due to type 2 diabetes mellitus ICD-10: E11.22 ICD-9: 250.40 12/14/2023 Active Type 2 diabetes mellitus wit h diabetic polyneuropathy, with long-term current use of insulin ICD-10: E11.42 ICD-9: 250.60 12/14/2023 Active Vitamin D deficiency ICD-10: E55.9 ICD-9: 268.9 12/14/2023 Active Hypokalemia ICD-10: E87.6 ICD-9: 276.8 11/09/2023 Active [...] E78. 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 131A ICD-9: 895.0 09/07/2023 Active Diabetic neuropathy associat ed with type 2 diabetes mellitus ICD-10: E11.40 ICD-9: 250.60 09/07/2023 Active Hyperlipidemia associated wi th type 2 diabetes mellitus ICD-10: E11.69 ICD-9: 250.80 09/07/2023 Active Recurrent major depressive disorder, in partial remission ICD-10: F33.41 ICD-9: 296.35 09/07/2023 Active Cellulitis ICD-10: L03.90 ICD-9: 682.9 [...] 09/07/2023 Resolved Coronary artery disease invo lving algaaciq coronary artery of algaaciq heart, angina presence unspecified ICD-10: I25.10 ICD-9: [...] ICD-10: Z23 ICD-9: V03.89 02/10/2022 Resolved 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 ICD-10: Z79.4 02/10 [...] Fill Instructions acetaminophen 500 mg tablet RxNorm: 394674 (MAX APAP:4GM/24HR) Take 1 Tablet(s) Oral TID as needed for pain 12/10/19 24 Active torsemide 20 mg tablet RxNorm: 324511 Take 1 Tablet(s) Oral QD 10/26/19 24 024 Inactive potassium chloride ER 20 mEq tablet,extended release RxNorm: 19800522 Take 2 Tablet(s) Oral BID 10/26/19 24 025 Active torsemide 20 mg tablet RxNorm: 402308 Take 1 Tablet(s) Oral QD 10/26/19 24 Inactive potassium chloride ER 20 mEq tablet,extended release RxNorm: 19800522 Take 2 Tablet(s) Oral BID 10/26/19 24 024 Inactive Artificial Tears (PF) 0.1 %-0.3 % drops in a dropperette RxNorm: 607785 Apply 1-2 Drop(s) Both eyes BID as needed 09/28/19 24 025 Active erythromycin 5 mg/gram (0.5 %) eye ointment RxNorm: 330963 Apply 1 Application Both eyes QHS every night at bedtime Instill ~1 cm ribbon into affected eye 09/28/19 24 024 Inactive Artificial Tears (PF) 0.1 %-0.3 % drops in a dropperette RxNorm: 870267 Apply 1-2 Drop(s) Both eyes BID as needed 09/28/19 24 024 Inactive erythromycin 5 mg/gram (0.5 %) eye ointment RxNorm: 189362 Apply 1 Application Both eyes QHS every night at bedtime Instill ~1 cm ribbon into affected eye 09/28/19 24 024 Inactive acetaminophen 500 mg tablet RxNorm: 896066 (MAX APAP:4GM/24HR) Take 1 Tablet(s) Oral TID as needed for pain 09/24/19 024 Inactive carvedilol 25 mg tablet RxNorm: 963073 Take 1 Tablet(s) Oral QD 09/08/19 24 No Stop Date Active pregabalin 100 mg capsule RxNorm: 712547 Take 1 Capsule(s) Oral QAM every morning 09/07/19 24 024 Active rosuvastatin 40 mg tablet RxNorm: 909013 Take 1 Tablet(s) Oral QPM every evening 07/13/19 24 No Stop Date Active ezetimibe 10 mg tablet RxNorm: 591513 Take 1 Tablet(s) Oral QD 07/13/19 24 No Stop Date Active bisacodyl 10 mg rectal suppository RxNorm: 952975 Insert 1 Suppository Rectal QD as needed 07/13/19 24 No Stop Date Active polyethylene glycol 3350 17 gram/dose oral powder RxNorm: 472517 Take 17 Gram(s) Oral BID as needed mix in 4-8ox water 07/13/19 24 No Stop Date Active ketoconazole 2 % shampoo RxNorm: 140760 Apply 1 Application Topical UD as directed 07/13/19 24 No Stop Date Active aripiprazole 15 mg tablet RxNorm: 734382 Take 1/2 Tablet(s) Oral QD 07/13/19 24 No Stop Date Active Ozempic 1 mg/dose (4 mg/3 mL) subcutaneous pen injector RxNorm: 0234750 Inject 1 Milligram(s) Subcutaneous QW once a week 07/13/19 24 No Stop Date Active Guaifenesin AC 10 mg-100 mg/5 mL oral liquid RxNorm: 517063 Take 10 Milliliter(s) Oral Q4H every four hours as needed 07/13/19 24 No Stop Date Active isosorbide mononitrate ER 60 mg tablet,extended release 24 hr RxNorm: 028982 Take 1 Tablet(s) Oral QD 07/13/19 24 No Stop Date Active ammonium lactate 12 % topical cream RxNorm: 856202 Apply 1 Application Topical BID 07/13/19 24 No Stop Date Active hydrocortisone 2.5 % topical cream RxNorm: 763460 Apply 1 Application Topical BID as needed 07/13/19 24 No Stop Date Active rosuvastatin 20 mg sprinkle capsule RxNorm: 0712372 Take 1 Capsule(s) Oral QD 07/13/19 24 No Stop Date Active Vascepa 1 gram capsule RxNorm: 5465020 Take 2 Capsule(s) Oral BID 07/13/19 24 No Stop Date Active venlafaxine ER 75 mg capsule,extended release 24 hr RxNorm: 124168 Take 3 Capsule(s) Oral QD 07/13/19 24 No Stop Date Active Basaglar KwikPen U-100 Insulin 100 unit/mL (3 mL) subcutaneous RxNorm: 9536044 Inject 30U SubQ twice daily 07/07/19 24 025 Active Please dispense one month supply. Basaglar KwikPen U-100 Insulin 100 unit/mL (3 mL) subcutaneous RxNorm: 6703042 Inject 30U SubQ twice daily 07/07/19 24 024 Inactive Please dispense one month supply. pregabalin 150 mg capsule RxNorm: 034026 Take 1 Capsule(s) Oral QHS every night at bedtime 07/05/19 24 024 Active pregabalin 150 mg capsule RxNorm: 055423 Take 1 Capsule(s) Oral QHS every night at bedtime 07/05/19 24 024 Inactive polyethylene glycol 3350 17 gram/dose oral powder RxNorm: 561275 Take 1 Packet Oral QD as needed (1 packet = 17g) mix with 4-8oz of liquid 06/15/19 24 024 Inactive bisacodyl 10 mg rectal suppository RxNorm: 395632 Insert one suppository per rectum once daily as needed for constipation 06/15/19 24 024 Inactive bisacodyl 10 mg rectal suppository RxNorm: 469124 Insert one suppository per rectum once daily as needed for constipation 06/15/19 24 024 Inactive pregabalin 100 mg capsule RxNorm: 836303 Take 1 Capsule(s) Oral QAM every morning 04/27/20 23 024 Inactive Levemir FlexPen 100 unit/mL (3 mL) solution subcutaneous insulin pen RxNorm: 529081 Inject 30 Unit(s) Subcutaneous BID 04/27/20 23 024 Inactive rosuvastatin 40 mg tablet RxNorm: 832391 Take 1 Tablet(s) Oral QPM every evening 04/16/20 23 024 Inactive D/C rosuvastatin 20mg venlafaxine ER 75 mg capsule,extended release 24 hr RxNorm: 426800 Take 3 Capsule(s) Oral QD 04/14/20 023 Inactive pregabalin 100 mg capsule RxNorm: 276526 Take 1 Capsule(s) Oral QAM every morning [...] meter clotrimazole 1 % topical cream RxNorm: 488532 Take apply topically to abdominal folds twice daily for 14 days 03/12/20 024 Inactive Ozempic 1 mg/dose (4 mg/3 mL) subcutaneous pen injector RxNorm: 3171902 Inject 1 Milligram(s) Subcutaneous QW once a week 03/11/20 023 Inactive rosuvastatin 20 mg tablet RxNorm: 297167 Take 1 Tablet(s) Oral QD 02/26/20 023 Inactive d/c pravastatin 80mg Ozempic 1 mg/dose (4 mg/3 mL) subcutaneous pen injector RxNorm: 6094952 Inject 1 Milligram(s) Subcutaneous QW once a week 02/20/20 23 023 Inactive pregabalin 150 mg capsule RxNorm: 440430 Take 1 Capsule(s) Oral HS at bed time 02/19/20 23 023 Inactive pregabalin 100 mg capsule RxNorm: 955178 Take 1 Capsule(s) Oral QAM every morning 02/18/20 23 023 Inactive venlafaxine ER 75 mg capsule,extended release 24 hr RxNorm: 523790 Take 3 Capsule(s) Oral QD 02/04/20 23 023 Inactive FreeStyle Chema 2 Sensor kit RxNorm: use as directed 02/04/20 23 023 Inactive FreeStyle Chema 2 Sensor kit RxNorm: use as directed 02/04/20 024 Inactive fluconazole 150 mg tablet RxNorm: 197122 Take 1 Tablet(s) Oral on day 3 and on day 6 02/03/20 024 Active chlorthalidone 25 mg tablet RxNorm: 844568 Take 1 Tablet(s) Oral QAM every morning 02/03/20 No Stop Date Active venlafaxine ER 150 mg capsule,extended release 24 hr RxNorm: 649272 Take 1 Capsule(s) Oral QD 02/03/20 023 Inactive acetaminophen 500 mg tablet RxNorm: 913618 1 TABLET ORALLY 3 TIMES DAILY (MAX APAP:4GM/24HR) 12/15/19 23 023 Inactive clotrimazole 1 % topical cream RxNorm: 973697 apply 1g topically to top of feet and in between toes BID 12/09/19 23 023 Inactive potassium chloride ER 20 mEq tablet,extended release RxNorm: 960940 Take 1 Tablet(s) Oral BID 12/09/19 23 024 Inactive d/c 20mEq once daily (sent from hospital) nystatin 100,000 unit/gram topical powder RxNorm: 608539 APPLY TO AFFECTED AREAS TOPICALLY 2 TIMES DAILY 11/21/19 23 024 Inactive Nystop 100,000 unit/gram topical powder RxNorm: 897243 Apply to abd folds, under breasts and L side of groin Topical BID x 14 days, then BID PRN 11/20/19 23 023 Inactive dx: yeast dermatitis Bengay Ultra Strength 4 %-30 %-10 % topical cream RxNorm: 702281 Apply 1 Gram(s) Topical QID PRN to feet and legs for neuropathic pain 11/11/19 23 024 Inactive clotrimazole 1 % topical cream RxNorm: 455830 Apply 1/2 Gram(s) Topical BID Apply to affected areas of groin, periarea, and abdominal topically 2 times daily 11/10/19 23 023 Inactive hydrocortisone 2.5 % topical cream RxNorm: 636614 Apply 1/2 Gram(s) Topical BID as needed 11/10/19 024 Inactive Humulin R U-500 (Concentrated) Insulin 500 unit/mL subcutaneous soln RxNorm: 954489 Inject 100 Unit(s) Subcutaneous TID 10/07/19 024 Inactive Levemir FlexPen 100 unit/mL (3 mL) solution subcutaneous insulin pen RxNorm: 681894 Inject 30 Unit(s) Subcutaneous BID 10/07/19 023 Inactive Ozempic 0.25 mg or 0.5 mg (2 mg/3 mL) subcutaneous pen injector RxNorm: 6102238 Inject 1/2 Milligram(s) Subcutaneous QW once a week 10/07/19 024 Inactive aripiprazole 15 mg tablet RxNorm: 891415 1/2 TAB (7.5MG) ORALLY DAILY (DX:MAJOR DEPRESSIVE DISORDER) 09/23/19 23 023 Inactive Lancets,Thin 28 gauge RxNorm: Use 1 as directed QID 09/15/19 23 024 Inactive Accu-Chek Guide test strips RxNorm: Use 1 Test Strip QID 09/15/19 23 023 Inactive ok to substitute with any covered alternative test strip torsemide 20 mg tablet RxNorm: 450025 Take 1 Tablet(s) Oral BID 09/09/19 024 Inactive d/c once daily dosing carvedilol 25 mg tablet RxNorm: 585466 Take 1 Tablet(s) Oral QD 08/25/19 024 Inactive pregabalin 150 mg capsule RxNorm: 503164 1 Capsule(s) Oral HS at bed time 08/18/19 023 Inactive pregabalin 100 mg capsule RxNorm: 156448 1 Capsule(s) Oral QAM every morning 08/18/19 23 023 Inactive carvedilol 25 mg tablet RxNorm: 906387 1 Tablet(s) Oral QD 07/28/19 23 023 Inactive lisinopril 20 mg tablet RxNorm: 088792 Give 1 Tablet(s) Oral QD 07/28/19 23 023 Inactive Lyrica 150 mg capsule RxNorm: 076594 Take 1 Capsule(s) Oral QHS every night at bedtime 07/19/19 23 023 Inactive d/c 100mg dose Diflucan 150 mg tablet RxNorm: 943402 Take 1 Tablet(s) Oral QD repeat on day 3 and 6 07/19/19 23 023 Inactive pregabalin 100 mg capsule RxNorm: 227145 Take 1 Capsule(s) Oral QAM every morning 07/19/19 023 Inactive gatifloxacin 0.5 % eye drops RxNorm: 651088 Instill 1 Drop(s) as directed TID Instill 1 drop in to affected eye(s) starting 1 day prior to surgery and continue until gone (do not exceed 4 weeks). 07/13/19 23 023 Inactive carvedilol 25 mg tablet RxNorm: 428850 2 Tablet(s) Oral BID 07/13/19 023 Inactive Humulin R Regular U-100 Insulin 100 unit/mL injection solution RxNorm: 423099 85 Unit(s) Injection TID 07/13/19 23 023 Inactive ketorolac 0.5 % eye drops RxNorm: 001975 Instill 1 Drop(s) as directed QID Instill 1 drop into affected eye(s) 4 times daily starting 1 day prior to surgery and continue until gone (do not exceed 4 weeks). 07/13/19 23 023 Inactive Diflucan 150 mg tablet RxNorm: 652615 Take 1 Tablet(s) Oral QD repeat on day 3 and 6 06/30/19 23 023 Inactive Accu-Chek Guide test strips RxNorm: Use 1 Test Strip QID Use 1 test strip to monitor blood glucose 4 times daily and as needed. Dx:E11.42. 06/23/19 23 023 Inactive ok to substitute with any covered alternative test strip dextromethorphan-gu aifenesin 10 mg-100 mg/5 mL oral liquid RxNorm: 375652 Take 10 Milliliter(s) Oral every 4 hours as needed for cough 06/19/19 023 Inactive dextromethorphan-gu aifenesin 10 mg-100 mg/5 mL oral liquid RxNorm: 964803 Take 10 Milliliter(s) Oral every 4 hours as needed for cough 06/19/19 023 Inactive Lyrica 150 mg capsule RxNorm: 404532 Take 1 Capsule(s) Oral QHS every night at bedtime 06/18/19 023 Inactive d/c 100mg dose aripiprazole 15 mg tablet RxNorm: 724171 / TAB (7.5MG) ORALLY DAILY (DX:MAJOR DEPRESSIVE DISORDER) 06/05/19 023 Inactive pregabalin 100 mg capsule RxNorm: 281128 1 Capsule(s) Oral QAM every morning 06/02/19 023 Inactive Banophen 50 mg capsule RxNorm: 2514385 Take 1 Capsule(s) Oral Q6H every 6 hours as needed 05/19/19 23 No Stop Date Active Novolog Flexpen U-100 Insulin aspart 100 unit/mL (3 mL) subcutaneous RxNorm: 4660146 Inject 10 Unit(s) Subcutaneous QHS every night at bedtime with nighttime snack 04/08/20 022 Inactive Novolog Flexpen U-100 Insulin aspart 100 unit/mL (3 mL) subcutaneous RxNorm: 4782201 Inject 42 Unit(s) Subcutaneous TID in addition to sliding scale 04/08/20 022 Inactive d/c 36u albuterol sulfate HFA 90 mcg/actuation aerosol inhaler RxNorm: 8531620 Take 2 Puff(s) Inhalation Q4H every four hours as needed as needed for SOB, cough, or wheezing 04/07/20 030 Active Banophen 50 mg capsule RxNorm: 4345066 Take 1 Capsule(s) Oral Q6H every 6 hours as needed 04/06/20 023 Inactive diphenhydramine 50 mg tablet RxNorm: 3189418 Take 1 Tablet(s) Oral Q6H every 6 hours as needed 04/06/20 22 022 Inactive diphenhydramine 50 mg tablet RxNorm: 0512780 1 Tablet(s) Oral Q6H every 6 hours as needed 04/06/20 22 022 Inactive Abilify 15 mg tablet RxNorm: 180336 1/2 Tablet(s) Oral QD 03/10/20 023 Inactive Shingrix (PF) 50 mcg/0.5 mL intramuscular suspension, kit RxNorm: 0772088 Administer 1/2 Milliliter(s) Intramuscular QD one time shingrix step 2 ( step 1 given 11/04/21) WITH needle - Nursing please administer upon arrival and once administered post a bridge message with date of administration, director prospect, expiration date, and lot# so we can update [facility] 02/18/20 22 022 Inactive dispense with needle Shingrix (PF) 50 mcg/0.5 mL intramuscular suspension, kit RxNorm: 7453701 Administer 1/2 Milliliter(s) Intramuscular QD one time shingrix step 2 ( step 1 given 11/04/21) WITH needle - Nursing please administer upon arrival and once administered post a bridge message with date of administration, director prospect, expiration date, and lot# so we can update [facility] 02/18/20 22 022 Inactive dispense with needle polyethylene glycol 3350 17 gram/dose oral powder RxNorm: 914662 Take 17=1 capful Gram(s) Oral QD mix with 4-8oz of liquid 01/08/20 22 023 Inactive take this in addition to BID prn order Lyrica 100 mg capsule RxNorm: 412605 Take 1 Capsule(s) Oral QAM every morning 01/08/20 22 022 Inactive d/c 50mg dose acetaminophen 500 mg tablet RxNorm: 441293 Take 1 Tablet(s) Oral TID 01/08/20 22 022 Inactive d/c PRN order Lyrica 150 mg capsule RxNorm: 310431 Take 1 Capsule(s) Oral QHS every night at bedtime 01/08/20 22 023 Inactive d/c 100mg dose Abilify 5 mg tablet RxNorm: 032784 Take 1 Tablet(s) Oral QD take 1 tab po QD #30 refill 5 dx: MDD 12/12/19 22 022 Inactive Abilify 5 mg tablet RxNorm: 294647 Take 1 Tablet(s) Oral QD take 1 tab po QD #30 refill 5 dx: MDD 12/12/19 22 022 Inactive Novolog Flexpen U-100 Insulin aspart 100 unit/mL (3 mL) subcutaneous RxNorm: 2147603 Inject 42 Unit(s) Subcutaneous TID in addition to sliding scale 12/10/19 22 022 Inactive d/c 36u chlorthalidone 25 mg tablet RxNorm: 597435 Take 1 Tablet(s) Oral QAM every morning 12/10/19 22 023 Inactive pregabalin 50 mg capsule RxNorm: 289761 Take 1 Capsule(s) Oral QAM every morning 11/12/19 22 022 Inactive tetanus-diphtheria toxoids-Td 2 Lf unit-2 Lf unit/0.5 mL IM suspension RxNorm: 139 Take 0.5 Miscellaneous Intramuscular 11/12/19 22 022 Inactive need tdap - nursing to administer upon arrival pregabalin 50 mg capsule RxNorm: 364553 Take 1 Capsule(s) Oral QAM every morning 10/16/19 22 022 Inactive pregabalin 50 mg capsule RxNorm: 609747 Take 1 Capsule(s) Oral QAM every morning 10/16/19 22 022 Inactive pregabalin 50 mg capsule RxNorm: 762355 1 Capsule(s) Oral QAM every morning 10/15/19 22 022 Inactive Shingrix (PF) 50 mcg/0.5 mL intramuscular suspension, kit RxNorm: 9160318 Administer 1/2 Milliliter(s) Intramuscular one time Nursing please administer upon arrival and once administered post a bridge message with date of administration, director prospect, expiration date, and lot# so we can update [facility]. 10/09/19 22 022 Inactive shingrix step 1 Shingrix (PF) 50 mcg/0.5 mL intramuscular suspension, kit RxNorm: 8035398 Administer 1/2 Milliliter(s) Intramuscular one time Nursing please administer upon arrival and once administered post a bridge message with date of administration, director prospect, expiration date, and lot# so we can update [facility]. 10/09/19 22 Inactive shingrix step 1 cholecalciferol (vitamin D3) 1,250 mcg (50,000 unit) capsule RxNorm: 677760 Take 1 Capsule(s) Oral QW once a [...] aspart 100 unit/mL (3 mL) subcutaneous RxNorm: 7580843 Inject 10 Unit(s) Subcutaneous QHS every night at bedtime with nighttime snack 10/08/19 22 Inactive Shingrix (PF) 50 mcg/0.5 mL intramuscular suspension, kit RxNorm: 5678898 ADMINISTER 2-DOSE SERIES PER CDC GUIDELINES 10/08/19 22 Active Shingrix (PF) 50 mcg/0.5 mL intramuscular suspension, kit RxNorm: 2258076 ADMINISTER 2-DOSE SERIES PER CDC GUIDELINES 10/08/19 22 Inactive Novolog Flexpen U-100 Insulin aspart 100 unit/mL (3 mL) subcutaneous RxNorm: 7907935 Inject 36 Unit(s) Subcutaneous TID in addition to sliding scale 10/08/19 22 Inactive Novofine Autocover 30 gauge x 1/3 needle RxNorm: Use 1 Miscellaneous UD as directed Use 1 needle as directed to administer insulin 5 times a day Dx:E11.42. 10/03/19 22 Inactive ok to substitute with any covered alternative pen needle benzoyl peroxide 10 % topical cleanser RxNorm: 820848 Apply 1 Application Topical QD apply to face, wash rinse and dry once daily (may change to QOD if drying) 08/19/19 22 022 Inactive (%covered by insurance) #60ml refill 11 dx: acne benzoyl peroxide 10 % topical cleanser RxNorm: 118731 Apply 1 Application Topical QD apply to face, wash rinse and dry once daily (may change to QOD if drying) 08/19/19 22 022 Inactive (%covered by insurance) #60ml refill 11 dx: acne benzoyl peroxide 10 % topical cleanser RxNorm: 529473 Apply 1 Application Topical QD apply to face, wash rinse and dry once daily (may change to QOD if drying) 08/19/19 22 022 Inactive (%covered by insurance) #60ml refill 11 dx: acne Lyrica 50 mg capsule RxNorm: 257638 Take 1 Capsule(s) Oral QAM every morning Take 1 capsule by mouth once daily 08/19/19 022 Inactive benzoyl peroxide 10 % topical cleanser RxNorm: 373430 Apply 1 Application Topical QD apply to face, wash rinse and dry once daily (may change to QOD if drying) 08/19/19 22 022 Inactive (%covered by insurance) #60ml refill 11 dx: acne Lyrica 100 mg capsule RxNorm: 643199 Take 1 Capsule(s) Oral QHS every night at bedtime Take 1 capsule by mouth once daily at bedtime 08/19/19 22 022 Inactive Lyrica 100 mg capsule RxNorm: 943484 Take 1 Capsule(s) Oral QHS every night at bedtime Take 1 capsule by mouth once daily at bedtime 08/16/19 022 Inactive Lyrica 50 mg capsule RxNorm: 881808 Take 1 Capsule(s) Oral QAM every morning Take 1 capsule by mouth once daily 08/16/19 022 Inactive Levemir FlexTouch U-100 Insulin 100 unit/mL (3 mL) subcutaneous pen RxNorm: 715777 Inject 86 Unit(s) Subcutaneous BID 08/05/19 22 022 Inactive d/c 83units BID Lyrica 100 mg capsule RxNorm: 777381 Take 1 Capsule(s) Oral QHS every night at bedtime Take 1 capsule by mouth once daily at bedtime 07/14/19 Inactive Lyrica 50 mg capsule RxNorm: 398674 Take 1 Capsule(s) Oral QAM every morning Take 1 capsule by mouth once daily 07/14/19 22 Inactive Levemir FlexTouch U-100 Insulin 100 unit/mL (3 mL) subcutaneous pen RxNorm: 822578 Inject 83 Unit(s) Subcutaneous BID 07/08/19 22 [...] test strip hydralazine 50 mg tablet RxNorm: 553830 Take 1 Tablet(s) Oral QID 05/05/20 022 Inactive venlafaxine ER 225 mg tablet,extended release 24 hr RxNorm: 376828 Take 1 Tablet(s) Oral QD 05/05/20 021 Inactive venlafaxine ER 225 mg tablet,extended release 24 hr RxNorm: 730220 Take 1 Tablet(s) Oral QD 05/05/20 022 Inactive isosorbide mononitrate ER 30 mg tablet,extended release 24 hr RxNorm: 136902 Take 1 Tablet(s) Oral QD 05/05/20 024 Inactive hydralazine 50 mg tablet RxNorm: 827568 Take 1 Tablet(s) Oral QID 05/05/20 021 Inactive aspirin 81 mg tablet,delayed release RxNorm: 436741 Take 1 Tablet(s) Oral QD 03/31/20 022 Inactive Vitamin D2 1,250 mcg (50,000 unit) capsule RxNorm: 4255155 Take 1 Capsule(s) Oral QW once a week x 12 weeks 03/31/20 022 Inactive Vitamin D2 1,250 mcg (50,000 unit) capsule RxNorm: 2614086 Take 1 Capsule(s) Oral QW once a week 03/31/20 021 Inactive Zetia 10 mg tablet RxNorm: 979153 Take 1 Tablet(s) Oral QD 03/31/20 024 Inactive Zetia 10 mg tablet RxNorm: 149142 Take 1 Tablet(s) Oral QD 03/31/20 021 Inactive hydralazine 25 mg tablet RxNorm: 701049 Take 1 Tablet(s) Oral QID 03/31/20 021 Inactive hydralazine 25 mg tablet RxNorm: 543201 Take 1 Tablet(s) Oral QID 03/31/20 021 Inactive hydralazine 10 mg tablet RxNorm: 821660 Take 1 Tablet(s) Oral QID 03/03/20 021 Inactive cephalexin 500 mg tablet RxNorm: 299346 Take 1 Tablet(s) Oral QID 02/27/20 021 Inactive cephalexin 500 mg tablet RxNorm: 804318 Take 1 Tablet(s) Oral QID 02/27/20 021 Inactive lisinopril 40 mg tablet RxNorm: 390274 Take 1 Tablet(s) Oral QD 02/11/20 023 Inactive Eliquis 5 mg tablet RxNorm: 8291810 Take 1 Tablet(s) Oral BID 01/05/20 21 022 Inactive Eliquis 5 mg tablet RxNorm: 0413591 Take 2 Tablet(s) Oral QD 01/01/20 21 021 Inactive Lyrica 50 mg capsule RxNorm: 287388 Take 1 Capsule(s) Oral QAM every morning 12/24/19 021 Inactive Lyrica 100 mg capsule RxNorm: 882164 Take 1 Capsule(s) Oral QHS every night at bedtime 12/24/19 021 Inactive clotrimazole 1 % topical cream RxNorm: 920304 Apply to right foot and toes Topical BID 12/04/19 21 023 Inactive metoprolol succinate ER 200 mg tablet,extended release 24 hr RxNorm: 359102 Take 1 Tablet(s) Oral QD 12/04/19 023 Inactive ciprofloxacin 500 mg tablet RxNorm: 322139 Take 1 Tablet(s) Oral QD 11/30/19 021 Inactive DX ofloxacin otic drops Accu-Chek Guide test strips RxNorm: USE 1 TO CHECK GLUCOSE 4 TIMES DAILY AND NEEDED 11/15/19 21 023 Inactive Blood Glucose Test strips RxNorm: Use 1 Test Strip QID at PRN 11/05/19 21 023 Inactive E11.42 lisinopril 30 mg tablet RxNorm: 234074 Take 1 Tablet(s) Oral QD 10/30/19 021 Inactive lisinopril 20 mg tablet RxNorm: 513777 Take 1 Tablet(s) Oral QD 10/23/19 21 021 Inactive lisinopril 20 mg tablet RxNorm: 907121 Take 1 Tablet(s) Oral QD 10/23/19 21 Inactive lisinopril 10 mg tablet RxNorm: 818804 Take 1 Tablet(s) Oral QD 10/02/19 21 021 Inactive icosapent ethyl 1 gram capsule RxNorm: 2757787 Take 2 Capsule(s) (2 gm) Oral BID with meals 09/12/19 21 024 Inactive Okay to dispense one 2gm tab if you have that available. icosapent ethyl 1 gram capsule RxNorm: 0737564 Take 2 Capsule(s) Oral BID 09/12/19 021 Inactive Okay to dispense one 2gm tab if you have that available. amlodipine 10 mg tablet RxNorm: 856284 Take 1 Tablet(s) Oral QD 09/04/19 022 Inactive aspirin 81 mg tablet,delayed release RxNorm: 974288 Take 1 Tablet(s) Oral QD 09/04/19 21 021 Inactive Levemir FlexTouch U-100 Insulin 100 unit/mL (3 mL) subcutaneous pen RxNorm: 600655 Inject 150 Unit(s) Subcutaneous BID 09/04/19 21 022 Inactive venlafaxine ER 150 mg tablet,extended release 24 hr RxNorm: 255036 Take 1 Tablet(s) Oral QD 09/04/19 021 Inactive clotrimazole-betame thasone 1 %-0.05 % topical cream RxNorm: 892234 Apply to rash on red area on left abdomen/chest Topical BID 08/10/19 21 021 Inactive amlodipine 5 mg tablet RxNorm: 973372 Take 1 Tablet(s) Oral QD 07/31/19 21 021 Inactive cephalexin 500 mg tablet RxNorm: 369547 Take 1 Tablet(s) Oral BID BID - Twice Daily 07/31/19 21 021 Inactive Start 08/01/20 pantoprazole 40 mg tablet,delayed release RxNorm: 811989 Take 1 Tablet(s) Oral QAM every morning 07/08/19 21 022 Inactive senna 8.6 mg tablet RxNorm: 718121 Take 1 Tablet(s) Oral QD 07/08/19 21 022 Inactive carbamazepine 200 mg tablet RxNorm: 171583 Take 1 Tablet(s) Oral BID 07/08/19 21 022 Inactive clopidogrel 75 mg tablet RxNorm: 872423 Take 1 Tablet(s) Oral QD 07/08/19 21 021 Inactive Blood Glucose Test strips RxNorm: Use 1 Test Strip QID at PRN 07/08/19 21 021 Inactive E11.42 Novolog Flexpen U-100 Insulin aspart 100 unit/mL (3 mL) subcutaneous RxNorm: 5710638 Administer per sliding scale Milliliter(s) Subcutaneous TID 151-200: 10 u; 201-250: 20 u; 251-300: 30 u; 301-350: 40 u; 351-400: 50 u. 07/08/19 21 022 Inactive lisinopril 5 mg tablet RxNorm: 893528 Take 1 Tablet(s) Oral QD 07/08/19 021 Inactive Novolog Flexpen U-100 Insulin aspart 100 unit/mL (3 mL) subcutaneous RxNorm: 2717987 Inject 85 Unit(s) Subcutaneous TID 07/08/19 022 Inactive pravastatin 80 mg tablet RxNorm: 254165 Take 1 Tablet(s) Oral QHS every night at bedtime 07/08/19 21 023 Inactive clotrimazole 1 % topical cream RxNorm: 132017 Apply to bilateral groin areas Topical BID 07/08/19 21 022 Inactive metoprolol succinate ER 200 mg tablet,extended release 24 hr RxNorm: 403456 Take 1 Tablet(s) Oral QD 07/08/19 21 021 Inactive Vitamin D3 25 mcg (1,000 unit) tablet RxNorm: 741221 Take 1 Tablet(s) Oral QD 07/08/19 21 021 Inactive isosorbide dinitrate 30 mg tablet RxNorm: 548255 Take 1 Tablet(s) Oral QD 07/08/19 21 021 Inactive Levemir FlexTouch U-100 Insulin 100 unit/mL (3 mL) subcutaneous pen RxNorm: 685028 Inject 140 Unit(s) Subcutaneous BID 07/08/19 21 021 Inactive torsemide 20 mg tablet RxNorm: 025566 Take 1 Tablet(s) Oral QD 07/08/19 21 023 Inactive venlafaxine 75 mg tablet RxNorm: 711874 Take 1 Tablet(s) Oral QD 07/08/19 021 Inactive acetaminophen 500 mg tablet RxNorm: 664111 Take 1 Tablet(s) Oral TID as needed for headache 06/18/19 21 021 Inactive acetaminophen 500 mg tablet RxNorm: 983206 Take 1 Tablet(s) Oral TID as needed for headache 06/18/19 021 Inactive Lyrica 100 mg capsule RxNorm: 551292 Take 1 Capsule(s) Oral QHS every night at bedtime 06/11/19 21 021 Inactive Lyrica 50 mg capsule RxNorm: 656546 Take 1 Capsule(s) Oral QAM every morning 06/10/19 21 021 Inactive hydrocortisone 2.5 % topical cream RxNorm: 621384 Apply to bilateral groin creases Topical BID 05/15/20 20 021 Inactive clotrimazole 1 % topical cream RxNorm: 698283 Apply to bilateral groin areas Topical BID 05/15/20 20 021 Inactive Lyrica 50 mg capsule RxNorm: 580189 Take 1 Capsule(s) Oral QAM every morning 05/14/20 20 020 Inactive Lyrica 100 mg capsule RxNorm: 250849 Take 1 Capsule(s) Oral QHS every night [...] Inactive Nystop 100,000 unit/gram topical powder RxNorm: 744570 Apply to abd folds, under breasts and L side of groin Topical BID x 14 days, then BID PRN 04/08/20 20 Inactive dx: yeast dermatitis Lyrica 100 mg capsule RxNorm: 049320 Take 1 Capsule(s) Oral QHS every night at bedtime 03/13/20 20 Inactive Lyrica 50 mg capsule RxNorm: 718584 Take 1 Capsule(s) Oral QAM every morning 03/13/20 20 Inactive ketoconazole 2 % shampoo RxNorm: 212327 Apply Topical two times a week with showers 03/11/20 20 024 Inactive cholecalciferol (vitamin D3) 50 mcg (2,000 unit) tablet RxNorm: 053161 Take 1 Tablet(s) Oral QD 03/11/20 20 021 Inactive Zetia 10 mg tablet RxNorm: 463734 Take 1 Tablet(s) Oral QD 03/07/20 20 021 Inactive Zetia 10 mg tablet RxNorm: 076543 Take 1 Tablet(s) Oral QD 03/07/20 20 Inactive Lyrica 50 mg capsule RxNorm: 717146 Take 1 Capsule(s) Oral QAM every morning 02/15/20 20 Inactive Lyrica 100 mg capsule RxNorm: 990773 Take 1 Capsule(s) Oral QHS every night at bedtime 02/15/20 20 Inactive Lyrica 100 mg capsule RxNorm: 111376 Take 1 Capsule(s) Oral QHS every night at bedtime 02/15/20 20 Inactive Lyrica 50 mg capsule RxNorm: 064376 Take 1 Capsule(s) Oral QAM every morning 02/15/20 20 020 Inactive metoprolol succinate ER 200 mg tablet,extended release 24 hr RxNorm: 663011 Take 1 Tablet(s) Oral QD 08/12/19 23 Active loperamide 2 mg capsule RxNorm: 327737 Take 1 Capsule(s) Oral QID as needed 06/12/19 22 Active hydralazine 50 mg tablet RxNorm: 593947 Take 1 Tablet(s) Oral QID 08/12/19 23 Active venlafaxine ER 75 mg capsule,extended release 24 hr RxNorm: 072850 Take 3 Capsule(s) Oral QD 06/12/19 22 023 Inactive polyethylene glycol 3350 17 gram/dose oral powder RxNorm: 462310 Take 17=1 capful Gram(s) Oral BID as needed mix with 4-8oz of liquid 06/12/19 22 024 Inactive icosapent ethyl 1 gram capsule RxNorm: 2002374 Take 2 Capsule(s) (2 gm) Oral BID with meals 10/07/19 23 023 Inactive Okay to dispense one 2gm tab if you have that available. Levemir FlexTouch U-100 Insulin 100 unit/mL (3 mL) subcutaneous pen RxNorm: 470229 Inject 80 Unit(s) Subcutaneous BID 07/14/19 23 023 Inactive Novolog Flexpen U-100 Insulin aspart 100 unit/mL (3 mL) subcutaneous RxNorm: 8572209 Insert 30 Unit(s) Subcutaneous TID with meals 10/08/19 22 022 Inactive Medication Administered No Medication Administered data Vital Signs Date Vital 12/14/2023 Blood Pressure 1: 136/76 Code: 8480-6 Heart Rate 1: 69 bpm Code: 8867-4 Respiratory Rate: 16 bpm Temperature: 36.7 (C) / 98.0 (F) Reason For Visit No Reason For Visit data Encounters Encounter Performer Location Location Address Codes Date ([address]) Home or Residence Visit Est Pt - [...] insulin[ICD10: E11.42] Diagnosis: Vitamin D deficiency[ICD10: E55.9] Harrison Munson [facility] [place] [address] [place] [address] CPT-4: 76936 12/14/2023 Plan of Care Planned Activity Notes Codes Status Date Appointment: Sandra Clark WPtel: [address] [facility] [address] [id number] Telehealth Psych Follow Up 12/09 Appointment: Tapan Shirley WPtel: [address] [facility] [address] [id number] [facility] 10/26/2022 Referral: [facility] WPtel: [address] , [address] [id number] [place] Referral Records Received 09/21/2022 Appointment: Tpaan Shirley WPtel: [address] [place] F/U 08/11/2022 Appointment: Tapan Shirley WPtel: [address] [place] F/U 07/14/2022 Appointment: Tapan Shirley WPtel: [address] [facility] [address] [id number] [place] F/U 02/10/2022 Referral: [facility] WPtel: [address] [id number] [place] Referral Completed 05/28/2021 Referral: General Cardiology Referral Complet ed 01/03/2021 Referral: General Psychologist Referral Close d Referral: General Psychiatrist Referral Patient/Family Scheduling Appointment Instructions Comment Date Peter is a?? Male being seen living at [facility]. Initial BPS visit 01/2020. PMHx including DMII, CAD w/ 5 stents, Depression, Seizure Disorder and CKD stage 3. He moved into [facility] in 12/2019 but after a hospitalization 05/2021 he moved to the [facility] to have closer nursing attention.??Sister Jyotsna involved in his care cell# [phone]??Guardian: Giulia (tapan met in person 09/01/21), now [...] Martines note from 11.08.2023 at [facility] (follow up 6 months) 12/14/2023 Hypercoagulable state [...] polyneuropathy, with long-term current use of insulin Digital Account Coordinator manages Leonid's diabetes. Last visit lengthy discussion had with Leonid and staff about making a follow up appointment KATALINA. Phone number provided to staff on [facility] [place] to assist with this.?? Currently taking: Basaglar 30 units BID. Humulin 100 units TID. Ozempic 1 mg weekly.?? Along with: Lyrica 100 mg Am and 150 mg PM.?? Hypertension and hyperlipidemia treatment in place.?? Leonid unaware of his blood glucose readings during the day. Encouragement has been provided on physical activity as tolerated, specifically after meals to help with blood glucose regulation. Facility prepares and serves meals; they do not follow a diabetic diet.?? Important to follow up with endocrinology regularly.?? Thankfully he had a follow up with his scout sniper on 11.08.2023 - Leonid shares they discontinued [...] amount of insulin daily.?? Does have an scout sniper that he should be following with regularly. This has been highly encouraged by PCP to both Leonid and staff to arrange follow up visit [...] diabetes and hyperlipidemia on board.?? Follows with [facility] Gastroenterology with [facility]. *Unsure of last follow up visit.?? Lab [...] lower extremities elevated in recliner. Continue new regimen.??. 12/14/2023
--- OUTSIDE RECORDS SUMMARY | 2023-12-27 06:10 | XMS_ITS | CCD ---
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 Family Resource Coordinator Name Role Phone [place] [facility], [place] Primary Care Provider Leona vailable [place] [facility], [facility] Chronic Care Management U navailable Summary Purpose DataExchange Insurance Providers Payer name Policy type / Coverage type Covered alliance party ID Effective Begin Date Effective End Date [place] Medicare Part B [id number] Unknown Unknown [place] B [id number] Unknown Unknown Family history Sister Brittany Suggs [...] Living 09/03/[address]: 5127249 Non-Smoker / No History of Smoking 09/02/[address]: 354684110 No Alcohol Consum ption 09/02/2020 Allergies, Adverse Reactions, Alerts Substance Reaction Codes Entered Date Inactivated Date Status * NO KNOWN FOOD ALLERGIES Unknown 07/13/2023 No Inactive Date Active LISINOPRIL RxNorm: 29889 02/12/2020 No Inactive Da te Active Metformin [...] E78. 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, angina presence unspecified ICD-10: I25.10 ICD-9: [...] Fill Instructions acetaminophen 500 mg tablet RxNorm: 049006 (MAX APAP:4GM/24HR) Take 1 Tablet(s) Oral TID as needed for pain 12/10/19 24 Active torsemide 20 mg tablet RxNorm: 473236 Take 1 Tablet(s) Oral QD 10/26/19 24 Inactive potassium chloride ER 20 mEq tablet,extended release RxNorm: 19800522 Take 2 Tablet(s) Oral BID 10/26/19 24 Active torsemide 20 mg tablet RxNorm: 351110 Take 1 Tablet(s) Oral QD 10/26/19 24 Inactive potassium chloride ER 20 mEq tablet,extended release RxNorm: 19800522 Take 2 Tablet(s) Oral BID 10/26/19 24 Inactive Artificial Tears (PF) 0.1 %-0.3 % drops in a dropperette RxNorm: 593091 Apply 1-2 Drop(s) Both eyes BID as needed 09/28/19 24 025 Active erythromycin 5 mg/gram (0.5 %) eye ointment RxNorm: 726685 Apply 1 Application Both eyes QHS every night at bedtime Instill ~1 cm ribbon into affected eye 09/28/19 24 024 Inactive Artificial Tears (PF) 0.1 %-0.3 % drops in a dropperette RxNorm: 445399 Apply 1-2 Drop(s) Both eyes BID as needed 09/28/19 24 024 Inactive erythromycin 5 mg/gram (0.5 %) eye ointment RxNorm: 040973 Apply 1 Application Both eyes QHS every night at bedtime Instill ~1 cm ribbon into affected eye 09/28/19 24 Inactive acetaminophen 500 mg tablet RxNorm: 822938 (MAX APAP:4GM/24HR) Take 1 Tablet(s) Oral TID as needed for pain 09/24/19 24 024 Inactive carvedilol 25 mg tablet RxNorm: 822801 Take 1 Tablet(s) Oral QD 09/08/19 24 No Stop Date Active pregabalin 100 mg capsule RxNorm: 635352 Take 1 Capsule(s) Oral QAM every morning 09/07/19 24 024 Active rosuvastatin 40 mg tablet RxNorm: 841550 Take 1 Tablet(s) Oral QPM every evening 07/13/19 24 No Stop Date Active ezetimibe 10 mg tablet RxNorm: 602819 Take 1 Tablet(s) Oral QD 07/13/19 24 No Stop Date Active bisacodyl 10 mg rectal suppository RxNorm: 465591 Insert 1 Suppository Rectal QD as needed 07/13/19 24 No Stop Date Active polyethylene glycol 3350 17 gram/dose oral powder RxNorm: 179627 Take 17 Gram(s) Oral BID as needed mix in 4-8ox water 07/13/19 24 No Stop Date Active ketoconazole 2 % shampoo RxNorm: 409845 Apply 1 Application Topical UD as directed 07/13/19 24 No Stop Date Active aripiprazole 15 mg tablet RxNorm: 098875 Take 1/2 Tablet(s) Oral QD 07/13/19 24 No Stop Date Active Ozempic 1 mg/dose (4 mg/3 mL) subcutaneous pen injector RxNorm: 2454011 Inject 1 Milligram(s) Subcutaneous QW once a week 07/13/19 24 No Stop Date Active Guaifenesin AC 10 mg-100 mg/5 mL oral liquid RxNorm: 213109 Take 10 Milliliter(s) Oral Q4H every four hours as needed 07/13/19 24 No Stop Date Active isosorbide mononitrate ER 60 mg tablet,extended release 24 hr RxNorm: 718561 Take 1 Tablet(s) Oral QD 07/13/19 24 No Stop Date Active ammonium lactate 12 % topical cream RxNorm: 271974 Apply 1 Application Topical BID 07/13/19 24 No Stop Date Active hydrocortisone 2.5 % topical cream RxNorm: 496176 Apply 1 Application Topical BID as needed 07/13/19 24 No Stop Date Active rosuvastatin 20 mg sprinkle capsule RxNorm: 6591718 Take 1 Capsule(s) Oral QD 07/13/19 24 No Stop Date Active Vascepa 1 gram capsule RxNorm: 5823411 Take 2 Capsule(s) Oral BID 07/13/19 24 No Stop Date Active venlafaxine ER 75 mg capsule,extended release 24 hr RxNorm: 845131 Take 3 Capsule(s) Oral QD 07/13/19 24 No Stop Date Active Basaglar KwikPen U-100 Insulin 100 unit/mL (3 mL) subcutaneous RxNorm: 6809635 Inject 30U SubQ twice daily 07/07/19 24 025 Active Please dispense one month supply. Basaglar KwikPen U-100 Insulin 100 unit/mL (3 mL) subcutaneous RxNorm: 3914120 Inject 30U SubQ twice daily 07/07/19 24 024 Inactive Please dispense one month supply. pregabalin 150 mg capsule RxNorm: 049458 Take 1 Capsule(s) Oral QHS every night at bedtime 07/05/19 24 024 Active pregabalin 150 mg capsule RxNorm: 011128 Take 1 Capsule(s) Oral QHS every night at bedtime 07/05/19 24 024 Inactive polyethylene glycol 3350 17 gram/dose oral powder RxNorm: 897243 Take 1 Packet Oral QD as needed (1 packet = 17g) mix with 4-8oz of liquid 06/15/19 24 024 Inactive bisacodyl 10 mg rectal suppository RxNorm: 714484 Insert one suppository per rectum once daily as needed for constipation 06/15/19 24 024 Inactive bisacodyl 10 mg rectal suppository RxNorm: 835629 Insert one suppository per rectum once daily as needed for constipation 06/15/19 24 024 Inactive pregabalin 100 mg capsule RxNorm: 825466 Take 1 Capsule(s) Oral QAM every morning 04/27/20 23 024 Inactive Levemir FlexPen 100 unit/mL (3 mL) solution subcutaneous insulin pen RxNorm: 726515 Inject 30 Unit(s) Subcutaneous BID 04/27/20 23 024 Inactive rosuvastatin 40 mg tablet RxNorm: 725856 Take 1 Tablet(s) Oral QPM every evening 04/16/20 23 024 Inactive D/C rosuvastatin 20mg venlafaxine ER 75 mg capsule,extended release 24 hr RxNorm: 461642 Take 3 Capsule(s) Oral QD 04/14/20 23 023 Inactive pregabalin 100 mg capsule RxNorm: 954006 Take 1 Capsule(s) Oral QAM every morning [...] meter clotrimazole 1 % topical cream RxNorm: 014750 Take apply topically to abdominal folds twice daily for 14 days 03/12/20 024 Inactive Ozempic 1 mg/dose (4 mg/3 mL) subcutaneous pen injector RxNorm: 5967221 Inject 1 Milligram(s) Subcutaneous QW once a week 03/11/20 23 023 Inactive rosuvastatin 20 mg tablet RxNorm: 105627 Take 1 Tablet(s) Oral QD 02/26/20 23 023 Inactive d/c pravastatin 80mg Ozempic 1 mg/dose (4 mg/3 mL) subcutaneous pen injector RxNorm: 7360906 Inject 1 Milligram(s) Subcutaneous QW once a week 02/20/20 23 023 Inactive pregabalin 150 mg capsule RxNorm: 107516 Take 1 Capsule(s) Oral HS at bed time 02/19/20 23 023 Inactive pregabalin 100 mg capsule RxNorm: 079830 Take 1 Capsule(s) Oral QAM every morning 02/18/20 23 023 Inactive venlafaxine ER 75 mg capsule,extended release 24 hr RxNorm: 090195 Take 3 Capsule(s) Oral QD 02/04/20 23 023 Inactive FreeStyle Chema 2 Sensor kit RxNorm: use as directed 02/04/20 23 023 Inactive FreeStyle Chema 2 Sensor kit RxNorm: use as directed 02/04/20 23 024 Inactive fluconazole 150 mg tablet RxNorm: 517273 Take 1 Tablet(s) Oral on day 3 and on day 6 02/03/20 024 Active chlorthalidone 25 mg tablet RxNorm: 744860 Take 1 Tablet(s) Oral QAM every morning 02/03/20 No Stop Date Active venlafaxine ER 150 mg capsule,extended release 24 hr RxNorm: 356774 Take 1 Capsule(s) Oral QD 02/03/20 23 023 Inactive acetaminophen 500 mg tablet RxNorm: 747920 1 TABLET ORALLY 3 TIMES DAILY (MAX APAP:4GM/24HR) 12/15/19 23 023 Inactive clotrimazole 1 % topical cream RxNorm: 985930 apply 1g topically to top of feet and in between toes BID 12/09/19 23 023 Inactive potassium chloride ER 20 mEq tablet,extended release RxNorm: 137300 Take 1 Tablet(s) Oral BID 12/09/19 23 024 Inactive d/c 20mEq once daily (sent from hospital) nystatin 100,000 unit/gram topical powder RxNorm: 817227 APPLY TO AFFECTED AREAS TOPICALLY 2 TIMES DAILY 11/21/19 23 024 Inactive Nystop 100,000 unit/gram topical powder RxNorm: 653773 Apply to abd folds, under breasts and L side of groin Topical BID x 14 days, then BID PRN 11/20/19 23 023 Inactive dx: yeast dermatitis [place] Ultra Strength 4 %-30 %-10 % topical cream RxNorm: 672890 Apply 1 Gram(s) Topical QID PRN to feet and legs for neuropathic pain 11/11/19 23 024 Inactive clotrimazole 1 % topical cream RxNorm: 351084 Apply 1/2 Gram(s) Topical BID Apply to affected areas of groin, periarea, and abdominal topically 2 times daily 11/10/19 23 023 Inactive hydrocortisone 2.5 % topical cream RxNorm: 771507 Apply 1/2 Gram(s) Topical BID as needed 11/10/19 024 Inactive Humulin R U-500 (Concentrated) Insulin 500 unit/mL subcutaneous soln RxNorm: 057432 Inject 100 Unit(s) Subcutaneous TID 10/07/19 024 Inactive Levemir FlexPen 100 unit/mL (3 mL) solution subcutaneous insulin pen RxNorm: 691088 Inject 30 Unit(s) Subcutaneous BID 10/07/19 023 Inactive Ozempic 0.25 mg or 0.5 mg (2 mg/3 mL) subcutaneous pen injector RxNorm: 3028190 Inject 1/2 Milligram(s) Subcutaneous QW once a week 10/07/19 024 Inactive aripiprazole 15 mg tablet RxNorm: 906635 1/2 TAB (7.5MG) ORALLY DAILY (DX:MAJOR DEPRESSIVE DISORDER) 09/23/19 023 Inactive Lancets,Thin 28 gauge RxNorm: Use 1 as directed QID 09/15/19 23 024 Inactive Accu-Chek Guide test strips RxNorm: Use 1 Test Strip QID 09/15/19 23 023 Inactive ok to substitute with any covered alternative test strip torsemide 20 mg tablet RxNorm: 693853 Take 1 Tablet(s) Oral BID 09/09/19 024 Inactive d/c once daily dosing carvedilol 25 mg tablet RxNorm: 002543 Take 1 Tablet(s) Oral QD 08/25/19 024 Inactive pregabalin 150 mg capsule RxNorm: 882839 1 Capsule(s) Oral HS at bed time 08/18/19 023 Inactive pregabalin 100 mg capsule RxNorm: 578153 1 Capsule(s) Oral QAM every morning 08/18/19 023 Inactive carvedilol 25 mg tablet RxNorm: 417450 1 Tablet(s) Oral QD 07/28/19 023 Inactive lisinopril 20 mg tablet RxNorm: 180532 Give 1 Tablet(s) Oral QD 07/28/19 23 023 Inactive Lyrica 150 mg capsule RxNorm: 618761 Take 1 Capsule(s) Oral QHS every night at bedtime 07/19/19 23 023 Inactive d/c 100mg dose Diflucan 150 mg tablet RxNorm: 581958 Take 1 Tablet(s) Oral QD repeat on day 3 and 6 07/19/19 23 023 Inactive pregabalin 100 mg capsule RxNorm: 608621 Take 1 Capsule(s) Oral QAM every morning 07/19/19 23 023 Inactive gatifloxacin 0.5 % eye drops RxNorm: 032709 Instill 1 Drop(s) as directed TID Instill 1 drop in to affected eye(s) starting 1 day prior to surgery and continue until gone (do not exceed 4 weeks). 07/13/19 23 023 Inactive carvedilol 25 mg tablet RxNorm: 499061 2 Tablet(s) Oral BID 07/13/19 23 023 Inactive Humulin R Regular U-100 Insulin 100 unit/mL injection solution RxNorm: 363477 85 Unit(s) Injection TID 07/13/19 23 023 Inactive ketorolac 0.5 % eye drops RxNorm: 865200 Instill 1 Drop(s) as directed QID Instill 1 drop into affected eye(s) 4 times daily starting 1 day prior to surgery and continue until gone (do not exceed 4 weeks). 07/13/19 023 Inactive Diflucan 150 mg tablet RxNorm: 280460 Take 1 Tablet(s) Oral QD repeat on day 3 and 6 06/30/19 23 023 Inactive Accu-Chek Guide test strips RxNorm: Use 1 Test Strip QID Use 1 test strip to monitor blood glucose 4 times daily and as needed. Dx:E11.42. 06/23/19 23 023 Inactive ok to substitute with any covered alternative test strip dextromethorphan-gu aifenesin 10 mg-100 mg/5 mL oral liquid RxNorm: 328610 Take 10 Milliliter(s) Oral every 4 hours as needed for cough 06/19/19 23 023 Inactive dextromethorphan-gu aifenesin 10 mg-100 mg/5 mL oral liquid RxNorm: 558184 Take 10 Milliliter(s) Oral every 4 hours as needed for cough 06/19/19 023 Inactive Lyrica 150 mg capsule RxNorm: 161602 Take 1 Capsule(s) Oral QHS every night at bedtime 06/18/19 023 Inactive d/c 100mg dose aripiprazole 15 mg tablet RxNorm: 705224 1/2 TAB (7.5MG) ORALLY DAILY (DX:MAJOR DEPRESSIVE DISORDER) 06/05/19 023 Inactive pregabalin 100 mg capsule RxNorm: 153190 1 Capsule(s) Oral QAM every morning 06/02/19 023 Inactive Banophen 50 mg capsule RxNorm: 4133809 Take 1 Capsule(s) Oral Q6H every 6 hours as needed 05/19/19 No Stop Date Active Novolog Flexpen U-100 Insulin aspart 100 unit/mL (3 mL) subcutaneous RxNorm: 7258801 Inject 10 Unit(s) Subcutaneous QHS every night at bedtime with nighttime snack 04/08/20 022 Inactive Novolog Flexpen U-100 Insulin aspart 100 unit/mL (3 mL) subcutaneous RxNorm: 4003364 Inject 42 Unit(s) Subcutaneous TID in addition to sliding scale 04/08/20 022 Inactive d/c 36u albuterol sulfate HFA 90 mcg/actuation aerosol inhaler RxNorm: 8127465 Take 2 Puff(s) Inhalation Q4H every four hours as needed as needed for SOB, cough, or wheezing 04/07/20 030 Active Banophen 50 mg capsule RxNorm: 3225894 Take 1 Capsule(s) Oral Q6H every 6 hours as needed 04/06/20 023 Inactive diphenhydramine 50 mg tablet RxNorm: 5313569 Take 1 Tablet(s) Oral Q6H every 6 hours as needed 04/06/20 022 Inactive diphenhydramine 50 mg tablet RxNorm: 0888093 1 Tablet(s) Oral Q6H every 6 hours as needed 04/06/20 22 022 Inactive Abilify 15 mg tablet RxNorm: 521692 1/2 Tablet(s) Oral QD 03/10/20 22 023 Inactive Shingrix (PF) 50 mcg/0.5 mL intramuscular suspension, kit RxNorm: 1652475 Administer 1/2 Milliliter(s) Intramuscular QD one time shingrix step 2 ( step 1 given 11/04/21) WITH needle - Nursing please administer upon arrival and once administered post a bridge message with date of administration, publication specialist, expiration date, and lot# so we can update [facility] 02/18/20 22 022 Inactive dispense with needle Shingrix (PF) 50 mcg/0.5 mL intramuscular suspension, kit RxNorm: 6288391 Administer 1/2 Milliliter(s) Intramuscular QD one time shingrix step 2 ( step 1 given 11/04/21) WITH needle - Nursing please administer upon arrival and once administered post a bridge message with date of administration, publication specialist, expiration date, and lot# so we can update [facility] 02/18/20 22 022 Inactive dispense with needle polyethylene glycol 3350 17 gram/dose oral powder RxNorm: 876453 Take 17=1 capful Gram(s) Oral QD mix with 4-8oz of liquid 01/08/20 22 023 Inactive take this in addition to BID prn order Lyrica 100 mg capsule RxNorm: 595321 Take 1 Capsule(s) Oral QAM every morning 01/08/20 22 022 Inactive d/c 50mg dose acetaminophen 500 mg tablet RxNorm: 413488 Take 1 Tablet(s) Oral TID 01/08/20 22 022 Inactive d/c PRN order Lyrica 150 mg capsule RxNorm: 193111 Take 1 Capsule(s) Oral QHS every night at bedtime 01/08/20 22 023 Inactive d/c 100mg dose Abilify 5 mg tablet RxNorm: 538830 Take 1 Tablet(s) Oral QD take 1 tab po QD #30 refill 5 dx: MDD 12/12/19 22 022 Inactive Abilify 5 mg tablet RxNorm: 159958 Take 1 Tablet(s) Oral QD take 1 tab po QD #30 refill 5 dx: MDD 12/12/19 22 022 Inactive Novolog Flexpen U-100 Insulin aspart 100 unit/mL (3 mL) subcutaneous RxNorm: 8173737 Inject 42 Unit(s) Subcutaneous TID in addition to sliding scale 12/10/19 22 Inactive d/c 36u chlorthalidone 25 mg tablet RxNorm: 067333 Take 1 Tablet(s) Oral QAM every morning 12/10/19 22 023 Inactive pregabalin 50 mg capsule RxNorm: 194480 Take 1 Capsule(s) Oral QAM every morning 11/12/19 22 022 Inactive tetanus-diphtheria toxoids-Td 2 Lf unit-2 Lf unit/0.5 mL IM suspension RxNorm: 139 Take 0.5 Miscellaneous Intramuscular 11/12/19 022 Inactive need tdap - nursing to administer upon arrival pregabalin 50 mg capsule RxNorm: 921251 Take 1 Capsule(s) Oral QAM every morning 10/16/19 022 Inactive pregabalin 50 mg capsule RxNorm: 417582 Take 1 Capsule(s) Oral QAM every morning 10/16/19 22 022 Inactive pregabalin 50 mg capsule RxNorm: 638777 1 Capsule(s) Oral QAM every morning 10/15/19 022 Inactive Shingrix (PF) 50 mcg/0.5 mL intramuscular suspension, kit RxNorm: 3660492 Administer 1/2 Milliliter(s) Intramuscular one time Nursing please administer upon arrival and once administered post a bridge message with date of administration, publication specialist, expiration date, and lot# so we can update [facility]. 10/09/19 22 022 Inactive shingrix step 1 Shingrix (PF) 50 mcg/0.5 mL intramuscular suspension, kit RxNorm: 8628273 Administer 1/2 Milliliter(s) Intramuscular one time Nursing please administer upon arrival and once administered post a bridge message with date of administration, publication specialist, expiration date, and lot# so we can update [facility]. 10/09/19 22 022 Inactive shingrix step 1 cholecalciferol (vitamin D3) 1,250 mcg (50,000 unit) capsule RxNorm: 990990 Take 1 Capsule(s) Oral QW once a [...] aspart 100 unit/mL (3 mL) subcutaneous RxNorm: 7608140 Inject 10 Unit(s) Subcutaneous QHS every night at bedtime with nighttime snack 10/08/19 22 Inactive Shingrix (PF) 50 mcg/0.5 mL intramuscular suspension, kit RxNorm: 0814940 ADMINISTER 2-DOSE SERIES PER CDC GUIDELINES 10/08/19 22 Active Shingrix (PF) 50 mcg/0.5 mL intramuscular suspension, kit RxNorm: 8620260 ADMINISTER 2-DOSE SERIES PER CDC GUIDELINES 10/08/19 22 Inactive Novolog Flexpen U-100 Insulin aspart 100 unit/mL (3 mL) subcutaneous RxNorm: 9237511 Inject 36 Unit(s) Subcutaneous TID in addition to sliding scale 10/08/19 22 Inactive Novofine Autocover 30 gauge x 1/3 needle RxNorm: Use 1 Miscellaneous UD as directed Use 1 needle as directed to administer insulin 5 times a day Dx:E11.42. 10/03/19 22 Inactive ok to substitute with any covered alternative pen needle benzoyl peroxide 10 % topical cleanser RxNorm: 605082 Apply 1 Application Topical QD apply to face, wash rinse and dry once daily (may change to QOD if drying) 08/19/19 22 Inactive (%covered by insurance) #60ml refill 11 dx: acne benzoyl peroxide 10 % topical cleanser RxNorm: 547984 Apply 1 Application Topical QD apply to face, wash rinse and dry once daily (may change to QOD if drying) 08/19/19 22 022 Inactive (%covered by insurance) #60ml refill 11 dx: acne benzoyl peroxide 10 % topical cleanser RxNorm: 227544 Apply 1 Application Topical QD apply to face, wash rinse and dry once daily (may change to QOD if drying) 08/19/19 22 022 Inactive (%covered by insurance) #60ml refill 11 dx: acne Lyrica 50 mg capsule RxNorm: 678081 Take 1 Capsule(s) Oral QAM every morning Take 1 capsule by mouth once daily 08/19/19 022 Inactive benzoyl peroxide 10 % topical cleanser RxNorm: 659238 Apply 1 Application Topical QD apply to face, wash rinse and dry once daily (may change to QOD if drying) 08/19/19 22 022 Inactive (%covered by insurance) #60ml refill 11 dx: acne Lyrica 100 mg capsule RxNorm: 688580 Take 1 Capsule(s) Oral QHS every night at bedtime Take 1 capsule by mouth once daily at bedtime 08/19/19 22 022 Inactive Lyrica 100 mg capsule RxNorm: 272508 Take 1 Capsule(s) Oral QHS every night at bedtime Take 1 capsule by mouth once daily at bedtime 08/16/19 22 Inactive Lyrica 50 mg capsule RxNorm: 149780 Take 1 Capsule(s) Oral QAM every morning Take 1 capsule by mouth once daily 08/16/19 22 Inactive Levemir FlexTouch U-100 Insulin 100 unit/mL (3 mL) subcutaneous pen RxNorm: 706549 Inject 86 Unit(s) Subcutaneous BID 08/05/19 22 Inactive d/c 83units BID Lyrica 100 mg capsule RxNorm: 494790 Take 1 Capsule(s) Oral QHS every night at bedtime Take 1 capsule by mouth once daily at bedtime 07/14/19 22 022 Inactive Lyrica 50 mg capsule RxNorm: 655535 Take 1 Capsule(s) Oral QAM every morning Take 1 capsule by mouth once daily 07/14/19 Inactive Levemir FlexTouch U-100 Insulin 100 unit/mL (3 mL) subcutaneous pen RxNorm: 667611 Inject 83 Unit(s) Subcutaneous BID 07/08/19 22 [...] test strip hydralazine 50 mg tablet RxNorm: 272812 Take 1 Tablet(s) Oral QID 05/05/20 21 022 Inactive venlafaxine ER 225 mg tablet,extended release 24 hr RxNorm: 138032 Take 1 Tablet(s) Oral QD 05/05/20 21 021 Inactive venlafaxine ER 225 mg tablet,extended release 24 hr RxNorm: 831005 Take 1 Tablet(s) Oral QD 05/05/20 21 022 Inactive isosorbide mononitrate ER 30 mg tablet,extended release 24 hr RxNorm: 189231 Take 1 Tablet(s) Oral QD 05/05/20 024 Inactive hydralazine 50 mg tablet RxNorm: 474174 Take 1 Tablet(s) Oral QID 05/05/20 21 Inactive aspirin 81 mg tablet,delayed release RxNorm: 905546 Take 1 Tablet(s) Oral QD 03/31/20 022 Inactive Vitamin D2 1,250 mcg (50,000 unit) capsule RxNorm: 4642717 Take 1 Capsule(s) Oral QW once a week x 12 weeks 03/31/20 022 Inactive Vitamin D2 1,250 mcg (50,000 unit) capsule RxNorm: 9587023 Take 1 Capsule(s) Oral QW once a week 03/31/20 021 Inactive Zetia 10 mg tablet RxNorm: 221307 Take 1 Tablet(s) Oral QD 03/31/20 024 Inactive Zetia 10 mg tablet RxNorm: 793356 Take 1 Tablet(s) Oral QD 03/31/20 021 Inactive hydralazine 25 mg tablet RxNorm: 648620 Take 1 Tablet(s) Oral QID 03/31/20 21 021 Inactive hydralazine 25 mg tablet RxNorm: 677703 Take 1 Tablet(s) Oral QID 03/31/20 21 021 Inactive hydralazine 10 mg tablet RxNorm: 501895 Take 1 Tablet(s) Oral QID 03/03/20 21 021 Inactive cephalexin 500 mg tablet RxNorm: 367460 Take 1 Tablet(s) Oral QID 02/27/20 021 Inactive cephalexin 500 mg tablet RxNorm: 930917 Take 1 Tablet(s) Oral QID 02/27/20 21 021 Inactive lisinopril 40 mg tablet RxNorm: 740697 Take 1 Tablet(s) Oral QD 02/11/20 023 Inactive Eliquis 5 mg tablet RxNorm: 9266232 Take 1 Tablet(s) Oral BID 01/05/20 21 022 Inactive Eliquis 5 mg tablet RxNorm: 6349853 Take 2 Tablet(s) Oral QD 01/01/20 21 021 Inactive Lyrica 50 mg capsule RxNorm: 460937 Take 1 Capsule(s) Oral QAM every morning 12/24/19 21 021 Inactive Lyrica 100 mg capsule RxNorm: 818314 Take 1 Capsule(s) Oral QHS every night at bedtime 12/24/19 021 Inactive clotrimazole 1 % topical cream RxNorm: 597224 Apply to right foot and toes Topical BID 12/04/19 21 023 Inactive metoprolol succinate ER 200 mg tablet,extended release 24 hr RxNorm: 136268 Take 1 Tablet(s) Oral QD 12/04/19 023 Inactive ciprofloxacin 500 mg tablet RxNorm: 644580 Take 1 Tablet(s) Oral QD 11/30/19 021 Inactive DX ofloxacin otic drops Accu-Chek Guide test strips RxNorm: USE 1 TO CHECK GLUCOSE 4 TIMES DAILY AND NEEDED 11/15/19 21 023 Inactive Blood Glucose Test strips RxNorm: Use 1 Test Strip QID at PRN 11/05/19 21 023 Inactive E11.42 lisinopril 30 mg tablet RxNorm: 086254 Take 1 Tablet(s) Oral QD 10/30/19 021 Inactive lisinopril 20 mg tablet RxNorm: 854700 Take 1 Tablet(s) Oral QD 10/23/19 21 021 Inactive lisinopril 20 mg tablet RxNorm: 899216 Take 1 Tablet(s) Oral QD 10/23/19 21 021 Inactive lisinopril 10 mg tablet RxNorm: 064453 Take 1 Tablet(s) Oral QD 10/02/19 21 021 Inactive icosapent ethyl 1 gram capsule RxNorm: 9408418 Take 2 Capsule(s) (2 gm) Oral BID with meals 09/12/19 024 Inactive Okay to dispense one 2gm tab if you have that available. icosapent ethyl 1 gram capsule RxNorm: 5731414 Take 2 Capsule(s) Oral BID 09/12/19 21 021 Inactive Okay to dispense one 2gm tab if you have that available. amlodipine 10 mg tablet RxNorm: 728924 Take 1 Tablet(s) Oral QD 09/04/19 21 022 Inactive aspirin 81 mg tablet,delayed release RxNorm: 940169 Take 1 Tablet(s) Oral QD 09/04/19 21 021 Inactive Levemir FlexTouch U-100 Insulin 100 unit/mL (3 mL) subcutaneous pen RxNorm: 406504 Inject 150 Unit(s) Subcutaneous BID 09/04/19 022 Inactive venlafaxine ER 150 mg tablet,extended release 24 hr RxNorm: 349204 Take 1 Tablet(s) Oral QD 09/04/19 21 021 Inactive clotrimazole-betame thasone 1 %-0.05 % topical cream RxNorm: 769141 Apply to rash on red area on left abdomen/chest Topical BID 08/10/19 21 Inactive amlodipine 5 mg tablet RxNorm: 597334 Take 1 Tablet(s) Oral QD 07/31/19 21 021 Inactive cephalexin 500 mg tablet RxNorm: 425288 Take 1 Tablet(s) Oral BID BID - Twice Daily 07/31/19 21 021 Inactive Start 08/01/20 pantoprazole 40 mg tablet,delayed release RxNorm: 274062 Take 1 Tablet(s) Oral QAM every morning 07/08/19 21 022 Inactive senna 8.6 mg tablet RxNorm: 813321 Take 1 Tablet(s) Oral QD 07/08/19 21 022 Inactive carbamazepine 200 mg tablet RxNorm: 469218 Take 1 Tablet(s) Oral BID 07/08/19 022 Inactive clopidogrel 75 mg tablet RxNorm: 743542 Take 1 Tablet(s) Oral QD 07/08/19 021 Inactive Blood Glucose Test strips RxNorm: Use 1 Test Strip QID at PRN 07/08/19 21 Inactive E11.42 Novolog Flexpen U-100 Insulin aspart 100 unit/mL (3 mL) subcutaneous RxNorm: 3702062 Administer per sliding scale Milliliter(s) Subcutaneous TID 151-200: 10 u; 201-250: 20 u; 251-300: 30 u; 301-350: 40 u; 351-400: 50 u. 07/08/19 022 Inactive lisinopril 5 mg tablet RxNorm: 570386 Take 1 Tablet(s) Oral QD 07/08/19 021 Inactive Novolog Flexpen U-100 Insulin aspart 100 unit/mL (3 mL) subcutaneous RxNorm: 8497765 Inject 85 Unit(s) Subcutaneous TID 07/08/19 022 Inactive pravastatin 80 mg tablet RxNorm: 185088 Take 1 Tablet(s) Oral QHS every night at bedtime 07/08/19 023 Inactive clotrimazole 1 % topical cream RxNorm: 856045 Apply to bilateral groin areas Topical BID 07/08/19 022 Inactive metoprolol succinate ER 200 mg tablet,extended release 24 hr RxNorm: 408140 Take 1 Tablet(s) Oral QD 07/08/19 021 Inactive Vitamin D3 25 mcg (1,000 unit) tablet RxNorm: 177982 Take 1 Tablet(s) Oral QD 07/08/19 021 Inactive isosorbide dinitrate 30 mg tablet RxNorm: 063130 Take 1 Tablet(s) Oral QD 07/08/19 021 Inactive Levemir FlexTouch U-100 Insulin 100 unit/mL (3 mL) subcutaneous pen RxNorm: 053141 Inject 140 Unit(s) Subcutaneous BID 07/08/19 021 Inactive torsemide 20 mg tablet RxNorm: 940323 Take 1 Tablet(s) Oral QD 07/08/19 21 023 Inactive venlafaxine 75 mg tablet RxNorm: 277678 Take 1 Tablet(s) Oral QD 07/08/19 21 021 Inactive acetaminophen 500 mg tablet RxNorm: 814771 Take 1 Tablet(s) Oral TID as needed for headache 06/18/19 21 021 Inactive acetaminophen 500 mg tablet RxNorm: 406179 Take 1 Tablet(s) Oral TID as needed for headache 06/18/19 21 021 Inactive Lyrica 100 mg capsule RxNorm: 168439 Take 1 Capsule(s) Oral QHS every night at bedtime 06/11/19 21 021 Inactive Lyrica 50 mg capsule RxNorm: 362674 Take 1 Capsule(s) Oral QAM every morning 06/10/19 21 021 Inactive hydrocortisone 2.5 % topical cream RxNorm: 050403 Apply to bilateral groin creases Topical BID 05/15/20 20 021 Inactive clotrimazole 1 % topical cream RxNorm: 720036 Apply to bilateral groin areas Topical BID 05/15/20 20 021 Inactive Lyrica 50 mg capsule RxNorm: 614422 Take 1 Capsule(s) Oral QAM every morning 05/14/20 20 020 Inactive Lyrica 100 mg capsule RxNorm: 845160 Take 1 Capsule(s) Oral QHS every night [...] Inactive Nystop 100,000 unit/gram topical powder RxNorm: 090892 Apply to abd folds, under breasts and L side of groin Topical BID x 14 days, then BID PRN 04/08/20 20 Inactive dx: yeast dermatitis Lyrica 100 mg capsule RxNorm: 787462 Take 1 Capsule(s) Oral QHS every night at bedtime 03/13/20 20 Inactive Lyrica 50 mg capsule RxNorm: 062725 Take 1 Capsule(s) Oral QAM every morning 03/13/20 20 Inactive ketoconazole 2 % shampoo RxNorm: 143528 Apply Topical two times a week with showers 03/11/20 20 Inactive cholecalciferol (vitamin D3) 50 mcg (2,000 unit) tablet RxNorm: 588051 Take 1 Tablet(s) Oral QD 03/11/20 20 021 Inactive Zetia 10 mg tablet RxNorm: 858276 Take 1 Tablet(s) Oral QD 03/07/20 20 021 Inactive Zetia 10 mg tablet RxNorm: 614740 Take 1 Tablet(s) Oral QD 03/07/20 20 Inactive Lyrica 50 mg capsule RxNorm: 828092 Take 1 Capsule(s) Oral QAM every morning 02/15/20 20 Inactive Lyrica 100 mg capsule RxNorm: 509078 Take 1 Capsule(s) Oral QHS every night at bedtime 02/15/20 20 Inactive Lyrica 100 mg capsule RxNorm: 913053 Take 1 Capsule(s) Oral QHS every night at bedtime 02/15/20 20 Inactive Lyrica 50 mg capsule RxNorm: 559951 Take 1 Capsule(s) Oral QAM every morning 02/15/20 20 Inactive metoprolol succinate ER 200 mg tablet,extended release 24 hr RxNorm: 818291 Take 1 Tablet(s) Oral QD 03/28/20 23 Active loperamide 2 mg capsule RxNorm: 714172 Take 1 Capsule(s) Oral QID as needed 06/12/19 22 Active hydralazine 50 mg tablet RxNorm: 638774 Take 1 Tablet(s) Oral QID 08/12/19 23 Active venlafaxine ER 75 mg capsule,extended release 24 hr RxNorm: 401215 Take 3 Capsule(s) Oral QD 06/12/19 22 023 Inactive polyethylene glycol 3350 17 gram/dose oral powder RxNorm: 401740 Take 17=1 capful Gram(s) Oral BID as needed mix with 4-8oz of liquid 06/12/19 22 024 Inactive icosapent ethyl 1 gram capsule RxNorm: 7410271 Take 2 Capsule(s) (2 gm) Oral BID with meals 10/07/19 23 023 Inactive Okay to dispense one 2gm tab if you have that available. Levemir FlexTouch U-100 Insulin 100 unit/mL (3 mL) subcutaneous pen RxNorm: 921128 Inject 80 Unit(s) Subcutaneous BID 07/14/19 23 023 Inactive Novolog Flexpen U-100 Insulin aspart 100 unit/mL (3 mL) subcutaneous RxNorm: 0594482 Insert 30 Unit(s) Subcutaneous TID with meals 10/08/19 22 022 Inactive Medication Administered No Medication Administered data Reason For Visit No Reason For Visit data Plan of Care Planned Activity Notes Codes Status Date Referral: [facility] WPtel: [phone], [address] [id number] [place] Referral Records Received 09/21/2022 Referral: [facility] WPtel: [phone] [id number] [place] Referral Completed 05/28/2021 Referral: General Cardiology Referral Complet ed 01/03/2021 Referral: General Psychologist Referral Close d Referral: General Psychiatrist Referral Patient/Family Scheduling Appointment Instructions Comment Date Leonid is a?? Male being seen living at [facility]. Initial [facility] visit 01/2020. PMHx including DMII, CAD w/ 5 stents, Depression, Seizure Disorder and CKD stage 3. He moved into [facility] in 12/2019 but after a hospitalization 05/2021 he moved to the [facility] to have closer nursing attention.??Sister Jyotsna involved in his care cell# [phone]??Guardian: Giulia (tapan met in person 09/01/21), now [...] note from 11.08.2023 at [facility] (follow up 6 months) 12/14/2023
[2023-12-27 06:29] LABS: PCR FLU A Negative PCR FLU A (Negative); PCR FLU B Negative PCR FLU B (Negative); PCR RSV Negative PCR RSV (Negative); SARS PCR* Negative SARS-CoV-2 (Negative)
--- NOTE | 2023-12-27 11:03 | ED.NURSE ---
Spoke with a caregiver at the [facility] regrading pt discharge disposition.
== END 2023-12-27 11:05 | disposition home or self-care (01) ==
PROVIDERS: Emergency Provider Family Medicine
DX: M47.816 Spondylosis without myelopathy or radiculopathy, lumbar region (principal)
CPT/HCPCS: 72100; 81003; 87631; 99284; A9270

== ENCOUNTER 2023-12-27 11:05 | Outpatient (CLI) | payer MEDICARE, MEDICAID, SELFPAY ==
--- OUTSIDE RECORDS SUMMARY | 2024-01-13 04:43 | XMS_ITS | Clinical Summary ---
Author Organization [facility] Address [address] [place] [address] Phone Care Team Providers Care Budget Controller Name Role Phone Mellisa Shirley PA-C Primary Care Provider [phone] Allergies Active Allergy Reactions Criticality Noted Date [...] 05/26/2021 Active cholecalciferol (VITAMIN D-3) 1.25 MG (29517 UT) capsule Take 1,250 mcg by mouth [...] age to complete this topic Care Teams Budget Controller Relationship Specialty Start Date End Date Mellisa Shirley PA-C PCP - General Physician Admitting Office Escort 08/31/22
--- OUTSIDE RECORDS SUMMARY | 2024-01-13 04:43 | XMS_ITS | Encounter Summary ---
Author Organization [facility] Address [address] [place] [address] Care Team Providers Care Compensation Specialist Name Role Phone Services, [facility] Physician Primary Care Provi sadia Prince Tobar MD Unavailable [phone] Prince Tobar MD Unavailable [phone] Encounter Details Date Type Department Care Team [...] Choose not to disclose 2021 8:14 AM [facility] documented as of this encounter Plan of Treatment Upcoming Encounters Date Type Department Care Team (Late st Contact Info) Description 03/08/2024 PRE VISIT [facility] [address] [address] Matilde Pérez PA-C [address] [place] [address] Previsit 03/08/2024 12:00 PM CDT Office Visit [facility] [address] [place] [id number] Reinaldo Beltran PA-C [facility] [address] [facility] [address] [place] [address] Matilde Pérez PA-C [address] [place], [place] [address] documented as of this encounter Visit Diagnoses Not on filedocumented in this encounter Care Teams Compensation Specialist Relationship Specialty Start Date End Date Services, [facility] Physician [address] [facility] [address] [place], [place] [id number] PCP - General 05/22/21 Prince Tobar MD [address] [place] [address] Cardiovascular Disease 03/26/22 Prince Tobar MD [address] [place] [address] Assigned Heart and Vascular Provider 05/30/22 documented as of this encounter
--- OUTSIDE RECORDS SUMMARY | 2024-01-13 04:43 | XMS_ITS | Clinical Summary ---
Author Organization [facility] Address [place], [place] [address] Care Team Providers Care Teenage Program Director Name Role Phone Alan Lopez MD Unavailable Nishant Watson MD Unavailable [phone] Pcp, No Primary Care Provider Unavailabl [...] type 2 diabetes mellitus (HC),Chronic edema JOBST #[id number] LRG FULL CALF KNEE BLACK 20-30 COMPRESSION [...] mg extended release tablet 24 HourIndications:CAD in [place] artery Take 1 tablet by mouth once [...] call MD 0 04/01/2020 Active Insulin Safety [place], Disp, (NOVOFINE AUTOCOVER) 30 gauge x /3Indications:Cecelia [...] at 10 am and no showed. RN Employment Services Director, Juanita Yoo, notified and she will attempt [...] No, referral made to Advance Care Plan Mangle Operator Garments. Patient has identified Specific Treatment Preferences: No Sophia Méndez RN .................... 07/06/2011 2:30 PM] Specific limits to treatment preferences NOT identified: ASSUME FULL TREATMENT. Last Assessment & Plan: Advance Care Planning: Disease-specific Session Leonid Leahy is [facility]. His PCP is Leandra Limon at [facility]. Advance care planning discussions were completed with Leonid. He identified his sister, Brittany Suggs, as his healthcare agent. Brittany was not present for ACP session. Understanding of Illness and Disease [place]: Leonid identifies his medical condition as what [...] to live well: Daily visit to local [place] for a pop and to visit and catch up in the news with locals. Leonid obed with serious challenges in his life: Support of his sister, only a phone call away. Helps manage [facility]. Leonid identifies the following fears [...] and primary care provider. [employer] Choices for [place] People booklet was sent to Leonid and his health care agent for review. Leonid requested all information be mailed to his sister and real estate underwriter to place call to sister to explain process. Leonid identified the following concerns during his advance care planning session: needing assistance at home to ensure he is managing his medications and treatments to keep going as is and stabilizing. Is followed by [facility] for needed services. Questions identified for his primary care provider: none Documents addressed during this advance care planning session: Health Care Directive completed and scanned into medical record. Statement of Treatment Preferences for advanced illness completed and scanned into the medical record. Recommendations/Plan: Leonid to review Advance Care Plan with Leonid's healthcare agent. Study Lead will be contacting Leonid's [facility] to explain services rendered, Leonid would benefit from: Home Care and/or Hospice when / if appropriate. 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 Height 167.6 cm (5' 6) 07/14/2022 6:10 PM BIAS CUTTER HELPER Body Mass Index 62.95 07/14/2022 6:10 PM BIAS CUTTER HELPER Plan of Treatment Health Maintenance Due Date [...] [employer] Implanted Type Area Endodontic Assistant Device Identifier Shelf Expiration Date Model / Serial / Lot Iol [place] +20 Tecnis Zcb00 - [id number] Implanted:Qty: 1 on 07/15/2022 by Tanner Fuentes MD at [facility] Left: Eye [employer] 06/24/2025 ZCB00 20.0 / [id number] / Iol [place] +20 Tecnis Zcb00 - [id number] Implanted:Qty: 1 on 08/19/2022 by Tanner Fuentes MD at [facility] Right: Eye [employer] 06/24/2025 ZCB00 20.0 / [id number] / Procedures Procedure Name Priority Date/Time Associated Diagnosis Comments BASIC METABOLIC PANEL Routine 11/01/2023 10:10 AM CDT Hypokalemia LIPID PANEL Routine 03/13/2019 2:31 PM CDT Essential hypertriglyceridemia from Last 3 Months or Most Recently Relevant to Health Maintenance Results * (ABNORMAL) BASIC METABOLIC PANEL (11/01/2023 10:10 AM CDT) SODIUM 140 136 - 145 mmol/L 11/01/2023 12:09 PM CDT [facility] POTASSIUM 3.7 3.5 - 5.1 mmol/L 11/01/2023 12:09 PM CDT [facility] CHLORIDE 97(L) 98 - 107 mmol/L 11/01/2023 12:09 PM CDT [facility] CO2,TOTAL 32(H) 22 - 29 mmol/L 11/01/2023 12:09 PM CDT [facility] ANION GAP 11 5 - 18 11/01/2023 12:09 PM CDT [facility] GLUCOSE 397(H) 70 - 99 mg/dL 11/01/2023 12:09 PM CDT [facility] CALCIUM 9.2 8.8 - 10.2 mg/dL 11/01/2023 12:09 PM CDT [facility] BUN 24(H) 8 - 23 mg/dL 11/01/2023 12:09 PM CDT [facility] CREATININE 1.09 0.70 - 1.20 mg/dL 11/01/2023 12:09 PM CDT [facility] BUN/CREAT RATIO 22(H) 10 - 20 12:09 PM CDT [facility] eGFR 76(L) >90 mL/min/1.7 3m2 11/01/2023 12:09 PM CDT [facility] Comment:As of 2021, eG FR is [...] AM CDT Harrison Munson DNP CHEMISTRY [facility] [address] [place] [address], * (ABNORMAL) LIPID PANEL (03/13/2019 2:31 PM CDT) CHOLESTEROL,TOTAL 193 100 - 199 mg/dL 03/13/2019 9:25 PM CDT [facility] TRIGLYCERIDES 715(H) <150 mg/dL 03/13/2019 9:25 PM CDT [facility] HDL CHOLESTEROL 29(L) >40 mg/dL 9 9:25 PM CDT [facility] NON-HDL CHOLESTEROL 164(H) <145 mg/dl 03/13/2019 9:25 PM CDT [facility] CHOL/HDL RATIO 6.66(H) <4.50 03/13/2019 9:25 PM CDT [facility] LDL CHOLESTEROL 9 9:25 PM CDT [facility] Comment:Invalid LDL when Tri g >400. PROVIDER ORDERED STATUS RANDOM 03/13/2019 9:25 PM CDT [facility] Blood BLOOD SPECIMEN / Unknown Venipuncture / Unknown 03/13/2019 2:31 PM CDT 03/13/2019 2:31 PM CDT Suellen Sosa MD [facility] [address] [place] [address], [place] from Last 3 Months or Most Recently Relevant to Health Maintenance Advance Directives Documents on File Type Date Recorded Patient Manager Film Expl anation POLST 09/26/2014 3:45 PM AH [...] 9:30 PM 03/19/2009 6:17 PM Care Teams Teenage Program Director Relationship Specialty Start Date End Date Pcp, No . PCP - General 07/15/22 Alan Lopez MD Internal Medicine Internal Medicine 11/20/10 Nishant Watson MD [address] [place] [address] Endocrinology 08/15/13
--- OUTSIDE RECORDS SUMMARY | 2024-01-13 04:43 | XMS_ITS | Referral Summary ---
Author Organization [place] Address [address] [place] [address] Care Team Providers Care Family Worker Name Role Phone Services, [facility] Physician Primary Care Provi sadia Prince Tobar MD Unavailable Prince Tobar MD Unavailable Matilde Pérez PA-C Unavailable [phone] Encounters Date Type Department Care Team Description 12/28/2023 6:08 PM CDT - 12/29/2023 12:59 AM T Emergency [facility] Emergency Dept [address] [place] [address] Agustin Cesar MD Anal fissure; External hemorrhoids Discharge Disposition: Home or Self Care 12/28/2023 Travel from Last 3 Months Allergies [...] daily Active cholecalciferol (VITAMIN D3) 1250 mcg (50452 units) capsule Take 1,250 mcg by mouth every 7 days on Wednesdays. Active venlafaxine (EFFEXOR-XR) 75 MG 24 hr capsule Take 225 mg by mouth daily Active hydrALAZINE (APRESOLINE) 50 MG tablet Take 50 mg by mouth 4 times daily Active polyethylene glycol (MIRALAX) 17 GM/Dose powder Take 17 g by mouth daily Active nystatin (MYCOSTATIN) 419029 UNIT/GM external powder Apply topically 2 times [...] daily for 7 days 4 g 12/28/2023 Active hydrocortisone, Perianal, (HYDROCORTISONE) 2.5 % cream Place rectally 2 times daily as needed for hemorrhoids 30 g 12/28/2023 Active Problems Problem Noted Date Diagnosed Date Elevated troponin 12/16/2022 Chest pain, unspecified type 12/16/2022 Diabetes mellitus, type 2 05/26/2022 Morbid obesity 05/26/2022 Abdominal wall cellulitis 05/17/2021 Sepsis, due to unspecified o rganism, unspecified whether acute organ dysfunction present 05/17/2021 Persistent headaches 03/01/2013 Epilepsy 03/01/2013 Immunizations Name Administration Dates Next Due COVID-19 MONOVALENT 12+ (Pfizer) 06/25/2020,05/17 [id number] Novel Flu 05/07/2009 Hepatitis B, Adult 02/16/2014,10/12/2013, [...] Choose not 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 Vital Signs Vital Sign Reading [...] 12/16/2022 4:59 PM CDT Plan of Treatment Upcoming Encounters Date Type Department Care Team (Late st Contact Info) Description 03/08/2024 PRE VISIT [facility] [address] [place] [address] Matilde Pérez PA-C [address] [place], [place] [phone] Previsit 03/08/2024 12:00 PM CDT Office Visit [facility] [address] 4th [place] [phone] Reinaldo Beltran PA-C [facility] [address] [place] [phone] Matilde Pérez PA-C [address] [place] [address] [phone] Procedures Procedure Name Priority Date/Time Associated Diagnosis [...] without heart failure Atherosclerotic heart disease of [place] coronary artery without angina pectoris Body mass index (BMI) 60.0-69.9, adult (H) Chronic kidney disease, unspecified COMPREHENSIVE METABOLIC PANEL Routine 10/15/2023 3:13 PM CDT Hypertensive heart disease without heart failure Atherosclerotic heart disease of [place] coronary artery without angina pectoris Body mass index (BMI) 60.0-69.9, adult (H) Chronic kidney disease, unspecified CBC WITH PLATELETS AND DIFFERENTIAL Routine 10/15/2023 3:13 PM CDT Hypertensive heart disease without heart failure Atherosclerotic heart disease of [place] coronary artery without angina pectoris Body mass index (BMI) 60.0-69.9, adult (H) Chronic kidney disease, unspecified VITAMIN D DEFICIENCY SCREENING Routine 10/15/2023 3:13 PM CDT Hypertensive heart disease without heart failure Atherosclerotic heart disease of [place] coronary artery without angina pectoris Body mass index (BMI) 60.0-69.9, adult (H) Chronic kidney disease, unspecified HEMOGLOBIN A1C Routine 10/15/2023 3:13 PM CDT Hypertensive heart disease without heart failure Atherosclerotic heart disease of [place] coronary artery without angina pectoris Body mass [...] LAB - BLOOD ORD ERABLES [facility] LABORATORY [facility] [address] [facility] ([facility], no room number) [place] [address] * Adult Type and Screen (12/28/2023 6:41 PM CDT) ABO/RH(D) A POS 12/28/2023 6:28 PM CDT RH BLOOD BANK Antibody Screen Negative Negative 12/28/2023 6:28 PM CDT RH BLOOD BANK SPECIMEN EXPIRATION DATE [id number] 12/28/2023 6:28 PM CDT RH BLOOD BANK Blood STRUCTURE OF RIGHT UPPER LIMB / Unknown Venipuncture / Unknown 12/28/2023 6:41 PM CDT 12/28/2023 6:46 PM CDT Agustin Cesar MD LAB - BLOOD BAN K TEST ORDER BLOOD BANK [address] [place] [address] * INR (12/28/2023 6:41 PM CDT) INR 1.01 0.85 - 1.15 12/28/2023 7:00 PM CDT RH LABORATORY Blood STRUCTURE OF RIGHT UPPER LIMB / Unknown Venipuncture / Unknown 12/28/2023 6:41 PM CDT 12/28/2023 6:46 PM CDT Agustin Cesar MD LAB - BLOOD ORD ERABLES LABORATORY [facility] Acute Care Lab [address] [facility] Lab (1st floor, no room number) [place] [address] * Partial thromboplastin time (12/28/2023 6:41 PM CDT) aPTT 28 22 - 38 Seconds 12/28/2023 7:00 PM CDT RH LABORATORY Blood STRUCTURE OF RIGHT UPPER LIMB / Unknown Venipuncture / Unknown 12/28/2023 6:41 PM CDT 12/28/2023 6:46 PM CDT Agustin Cesar MD LAB - BLOOD ORD ERABLES LABORATORY [facility] Acute Care Lab [address] [facility] Lab (1st floor, no room number) [place] [address], [facility] * (ABNORMAL) Comprehensive metabolic panel (12/28/2023 6:41 PM CDT) Only the most recent of2 resultswithin the time period is included. Sodium 136 135 - 145 mmol/L 12/28/2023 7:09 PM CDT LABORATORY Potassium 3.7 3.4 - 5.3 mmol/L 12/28/2023 7:09 PM CDT LABORATORY Carbon Dioxide (CO2) 28 22 - 29 mmol/L 12/28/2023 7:09 PM CDT LABORATORY Anion Gap 14 7 - 15 mmol/L 12/28/2023 7:09 PM CDT LABORATORY Urea Nitrogen 22.7 8.0 - 23.0 mg/dL 12/28/2023 7:09 PM CDT LABORATORY Creatinine 1.28(H) 0.67 - 1.17 mg/dL [...] - BLOOD ORD ERABLES LABORATORY [facility] Acute Care Lab [address] [facility] Lab (1st floor, no room number) [place] [address] * Vitamin D Deficiency (10/15/2023 3:13 PM CDT) [facility] Vitamin D, Total (25-Hydroxy) 32 20 - 50 ng/mL 10/17/2023 4:24 PM CDT [facility] Comment:optimum levels Blood BLOOD SPECIMEN / Unknown Client Draw / Unknown 10/15/2023 3:13 PM CDT 10/15/2023 4:25 PM CDT Narrative [facility] - 10/17/2023 4:24 PM CDT Season, race, dietary intake, and treatment affect the concentration of 09-nugtdfm-Tohbrkg D. Values may decrease during winter months and increase during summer months. Vitamin D determination is routinely performed by an immunoassay specific for 25 hydroxyvitamin D3. ??If an individual is on vitamin D2(ergocalciferol) supplementation, please specify 25 [place] vitamin D2 and D3 level determination by LCMSMS test VITD23. [facility] LAB - BLOOD ORDERABL ES [facility] [address] [facility], [address] [place] [address] * (ABNORMAL) Hemoglobin A1c (10/15/2023 3:13 PM CDT) Hemoglobin A1C 10.8(H) <5.7 % 10/15/2023 4:57 PM CDT LABORATORY Comment: Normal <5.7% Prediabetes 5.7-6.4% ?? Diabetes 6.5% or higher Note: Adopted from ADA consensus guidelines. Blood BLOOD SPECIMEN / Unknown Client Draw / Unknown 10/15/2023 3:13 PM CDT 10/15/2023 4:25 PM CDT [facility] LAB - BLOOD ORDERABL ES LABORATORY [facility] Acute [facility] Lab [address] Lab (1st floor, no room number) [place] [address], [facility] from Last 3 Months Advance Directives For more information, please contact: [phone] Documents on File Type Date Recorded Patient Operations Supervisor Expl anation Advance Directives and Living Will 06/02/2021 [employer] (GUARDIAN) Legal Guardianship 10-18-2013 * Full Code (Latest Code Status on File) Date Activated Date Inactivated Comments 12/16/2022 2:40 PM 12/18/2022 7:20 PM All basic and advanced life-sustaining interventions are performed as appropriate Question Answer Comments Code status determined by: Discussion with patie nt/ legal decision maker * Full Code Date Activated Date Inactivated Comments 05/18/2021 3:06 AM 06/03/2021 6:27 PM All basic and advanced life-sustaining interventions are performed as appropriate Question Answer Comments Code status determined by: Discussion with patie nt/ legal decision maker Care Teams Family Worker Relationship Specialty Start Date End Date Services, [facility] Physician [address] [place] [address] PCP - General 05/22/21 Prince Tobar MD [address] [place] [address] Cardiovascular Disease 03/26/22 Prince Tobar MD [address] [place] [address] Assigned Heart and Vascular Provider 05/30/22 Matilde Pérez PA-C [address] [place] [address] [phone] Physician Bioprocessing Manufacturing Technician Physician Bioprocessing Manufacturing Technician - Surgical 12/30/23
--- OUTSIDE RECORDS SUMMARY | 2024-01-13 04:43 | XMS_ITS | Encounter Summary ---
Author Organization [place] Address [address] [place] [address] Care Team Providers Care Consulting Group Analyst Name Role Phone Services, [facility] Physician Primary Care Provi sadia Prince Tobar MD Unavailable [phone] Prince Tobar MD Unavailable [phone] Reason for Referral * Consultation (Priority: 1-2 Weeks) - Pending Review Specialty Diagnoses / Procedures Referred By Contjohnny dalal Referred To Contact Colon and Rectal Surgery Diagnoses Anal fissure External hemorrhoids Reinaldo Beltran PA-C [facility] [address] [place] [address] Referral ID Status Reason Start Date Expiration Date V isits Requested Visits Authorized [id number] Pending Review 12/28/2023 12/27/2024 1 1 Question Answer Reason for Referral: Anal Fissure Special Concerns: Other My Clinical Question Is: Anal fissure, taking Apixaban Scheduling Instructions: [employer] will call you to coordinate care as prescribed your provider. If you don? t hear from a vendor representatives within 2 business days, please call . Comments Please be aware that coverage of these services is subject to the terms and limitations of your health insurance plan. Call member services at your health plan with any benefit or coverage questions. [employer] will call you to coordinate care as prescribed your provider. If you don? t hear from a vendor representatives within 2 business days, please call . 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 The bleeding you noted on [...] Sig Dispensed Refills Start Date End Date acetaminophen (TYLENOL) 500 MG tablet Take 500 [...] mouth daily cholecalciferol (VITAMIN D3) 1250 mcg (78152 units) capsule Take 1,250 mcg by mouth [...] tablet Take 200 mg by mouth daily nitroGLYcerin 0.2% ointment Apply 1 click (0.25 g) topically 2 times daily for 7 days 4 g 12/28/2023 nystatin (MYCOSTATIN) 991818 UNIT/GM external powder Apply topically 2 times [...] capsule Take 225 mg by mouth daily hydrocortisone, Perianal, (HYDROCORTISONE) 2.5 % cream Place rectally 2 times daily as needed for hemorrhoids 30 g 12/28/2023 01/04/2024 documented as of this encounter ED Notes [...] MG tablet cholecalciferol (VITAMIN D3) 1250 mcg (27268 units) capsule clotrimazole (LOTRIMIN) 1 % external [...] 200 MG 24 hr tablet nystatin (MYCOSTATIN) 727360 UNIT/GM external powder pantoprazole (PROTONIX) 40 MG [...] POS Antibody Screen Negative SPECIMEN EXPIRATION DATE [id number] ABO/RH TYPE AND SCREEN Emergency Department Course [...] 1. Anal fissure K60.2 Adult Colorectal Surgery Degreaser Operator Referral 2. External hemorrhoids K64.4 Adult Colorectal Surgery Degreaser Operator Referral Discharge Medications: New Prescriptions HYDROCORTISONE, PERIANAL, [...] yesterday, he went to a clinic in [place], he is unsure of what was done [...] MG tablet cholecalciferol (VITAMIN D3) 1250 mcg (71705 units) capsule clotrimazole (LOTRIMIN) 1 % external [...] 200 MG 24 hr tablet nystatin (MYCOSTATIN) 932202 UNIT/GM external powder pantoprazole (PROTONIX) 40 MG [...] -- -- -- -- -- 95 % 12/28/231834 -- -- -- -- -- 96 % 12/28/231829 135/68 -- -- 74 -- 97 % [...] POS Antibody Screen Negative SPECIMEN EXPIRATION DATE [id number] ABO/RH TYPE AND SCREEN Imaging No orders to display Independent Interpretation None ED Course Medications Administered Medications - No data to display Procedures Procedures Discussion of Management Staffed with Dr. Cesar ED Course ED Course as of 12/28/231936Dec 28, 20231838 I evaluated and examined the patient 1902 Rectal exam with RN at bedside Additional Documentation None Medical Decision Making / Diagnosis [facility] Diagnoses: None MIPS None [facility] Leonid Leahy is a 63 year old [...] 1. Anal fissure K60.2 Adult Colorectal Surgery Degreaser Operator Referral 2. External hemorrhoids K64.4 Adult Colorectal Surgery Degreaser Operator Referral Discharge Medications New Prescriptions HYDROCORTISONE, PERIANAL, [...] Pt comes from assisted living facility in [place]. * Tamiko Monzon RN - 12/28/2023 6:08 PM CDT Bed: ED01 Expected date: Expected time: Means of arrival: Comments: [id number] documented in this encounter Plan of Treatment Upcoming Encounters Date Type Department Care Team (Late st Contact Info) Description 03/08/2024 PRE VISIT [facility] Colon [facility] Rectal Surgery Clinic [address] [address] Matilde Pérez PA-C [address] [place] [address] Previsit 03/08/2024 12:00 PM CDT Office Visit [facility] Colon [facility] Rectal Surgery Clinic [address] [phone] Reinaldo Beltran PA-C [facility] [address] [place] [phone] Matilde Pérez PA-C [address] [place] [address] Scheduled Referrals Name Type Priority Associated Diagnoses Orde r Schedule Adult Colorectal Surgery Degreaser Operator Referral Referral Priority: 1-2 Weeks Anal fissure [...] CDT RH BLOOD BANK SPECIMEN EXPIRATION DATE [id number] 12/28/2023 6:28 PM CDT RH BLOOD BANK Blood STRUCTURE OF RIGHT UPPER LIMB / Unknown Venipuncture / Unknown 12/28/2023 6:41 PM CDT 12/28/2023 6:46 PM CDT Agustin Cesar MD LAB - BLOOD BAN K TEST ORDER BLOOD [place] [address], [facility] * (ABNORMAL) CBC with platelets and [...] MD LAB - BLOOD ORD ERABLES LABORATORY [facility] Acute Care Lab [address] [facility] Lab (1st floor, no room number) [place] [address], [facility] * (ABNORMAL) Comprehensive metabolic panel (12/28/2023 [...] >60 mL/min/1.7 3m2 12/28/2023 7:09 PM CDT LABORATORY Comment:eGFR calculated usin g 2020 CKD-EPI [...] MD LAB - BLOOD ORD ERABLES LABORATORY [facility] Acute Care Lab [address] [facility] Lab (1st floor, no room number) [place] [address], [facility] * Partial thromboplastin time (12/28/2023 6:41 PM CDT) aPTT 28 22 - 38 Seconds 12/28/2023 7:00 PM CDT RH LABORATORY Blood STRUCTURE OF RIGHT UPPER LIMB / Unknown Venipuncture / Unknown 12/28/2023 6:41 PM CDT 12/28/2023 6:46 PM CDT Agustin Cesar MD LAB - BLOOD ORD ERABLES [facility] Care Lab [address] Lab (1st floor, no room number) [place] [address] * INR (12/28/2023 6:41 PM CDT) INR 1.01 0.85 - 1.15 12/28/2023 7:00 PM CDT LABORATORY Blood STRUCTURE OF RIGHT UPPER LIMB / Unknown Venipuncture / Unknown 12/28/2023 6:41 PM CDT 12/28/2023 6:46 PM CDT Agustin Cesar MD LAB - BLOOD ORD ASHISH Performing Organization Address City/[facility]/ZIP Co de Phone Number [facility] Care Lab [address] Lab (1st floor, no room number) [place] [address] documented in this encounter Visit Diagnoses Diagnosis Anal fissure External hemorrhoids External hemorrhoids without mention of complication documented in this encounter Care Teams Consulting Group Analyst Relationship Specialty Start Date End Date Services, [facility] Physician [address] [place] [address] PCP - General 05/22/21 Prince Tobar MD [address] [place] [address] Cardiovascular Disease 03/26/22 Prince Tobar MD [address] [place] [address] Assigned Heart and Vascular Provider 05/30/22 documented as of this encounter
--- OUTSIDE RECORDS SUMMARY | 2024-01-13 04:43 | XMS_ITS | Clinical Summary ---
Author Organization [place] Address [address] [place] [address] Care Team Providers Care Power System Electrical Engineer Name Role Phone Services, [facility] Physician Primary Care Provi sadia Prince Tobar MD Unavailable Prince oTbar MD Unavailable Matilde Pérez PA-C Unavailable [phone] Allergies Active Allergy Reactions Criticality Noted Date [...] daily Active cholecalciferol (VITAMIN D3) 1250 mcg (52309 units) capsule Take 1,250 mcg by mouth every 7 days on Wednesdays. Active venlafaxine (EFFEXOR-XR) 75 MG 24 hr capsule Take 225 mg by mouth daily Active hydrALAZINE (APRESOLINE) 50 MG tablet Take 50 mg by mouth 4 times daily Active polyethylene glycol (MIRALAX) 17 GM/Dose powder Take 17 g by mouth daily Active nystatin (MYCOSTATIN) 120209 UNIT/GM external powder Apply topically 2 times [...] CDT - 12/29/2023 12:59 AM CDT Emergency [facility] Emergency Dept [address] [place] [phone] Agustin Cesar MD Anal fissure; External hemorrhoids Discharge Disposition: Home or Self Care 12/28/2023 Travel from Last 3 Months Immunizations Name Administration Dates Next Due COVID-19 MONOVALENT 12+ (Pfizer) 06/25/2020,05/17 [id number] Novel Flu 05/07/2009 Hepatitis B, Adult 02/16/2014,10/12/2013, [...] 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 to 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 Vital Signs Vital Sign Reading [...] st Contact Info) Description 03/08/2024 PRE VISIT [facility] [address] [place] [address] Matilde Pérez PA-C [address] [place] [phone] Previsit 03/08/2024 12:00 PM CDT Office Visit [facility] [place] [address] [place] [address] 4th [place] [phone] Reinaldo Beltran PA-C [facility] [address] [place] [phone] Matilde Pérez PA-C [address] [place] [phone] Health Maintenance Due Date Last Done Comments [...] 60+) (1 - 1-dose 60+ series) 2019 PHQ-2 (once per calendar year) 2023 A1C 01/15/2024 10/15/2023, 08/0 06/2022, 05/17/2021 INFLUENZA VACCINE (#1) 2024 , 04/03/2022, 05/29/2021, Additional history exists BMP 12/27/2024 12/28/2023, 05/3 05/2023, 02/22/2023, Additional history exists ADVANCE CARE PLANNING 06/02/2026 06/02/2021 DTAP/TDAP/TD IMMUNIZATION (3 - Td or Tdap) 02/13/2032 02/12/2022, 05/07/2009 ZOSTER IMMUNIZATION Completed 03/24/2022, 2 COVID-19 Vaccine Completed 06/02/2023, , 06/18/2021, Additional history exists HPV IMMUNIZATION Aged Out No longer e [...] without heart failure Atherosclerotic heart disease of 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 Body mass index (BMI) 60.0-69.9, adult (H) Chronic kidney disease, unspecified COMPREHENSIVE METABOLIC PANEL Routine 10/15/2023 3:13 PM CDT Hypertensive heart disease without heart failure Atherosclerotic heart disease of 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 Body mass index (BMI) 60.0-69.9, adult (H) Chronic kidney disease, unspecified CBC WITH PLATELETS AND DIFFERENTIAL Routine 10/15/2023 3:13 PM CDT Hypertensive heart disease without heart failure Atherosclerotic heart disease of 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 Body mass index (BMI) 60.0-69.9, adult (H) Chronic kidney disease, unspecified VITAMIN D DEFICIENCY SCREENING Routine 10/15/2023 3:13 PM CDT Hypertensive heart disease without heart failure Atherosclerotic heart disease of 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 Body mass index (BMI) 60.0-69.9, adult (H) Chronic kidney disease, unspecified HEMOGLOBIN A1C Routine 10/15/2023 3:13 PM CDT Hypertensive heart disease without heart failure Atherosclerotic heart disease of 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 Body mass [...] LAB - BLOOD ORD ERABLES [facility] [address], no room number) [place] [address], [facility] * Adult Type and Screen (12/28/2023 6:41 PM CDT) ABO/RH(D) A POS 12/28/2023 6:28 PM CDT [facility] Antibody Screen Negative Negative 12/28/2023 6:28 PM CDT [facility] SPECIMEN EXPIRATION DATE [id number] 12/28/2023 6:28 PM CDT [facility] Blood STRUCTURE OF RIGHT UPPER LIMB / Unknown Venipuncture / Unknown 12/28/2023 6:41 PM CDT 12/28/2023 6:46 PM CDT Agustin Cesar MD LAB - BLOOD BAN K TEST ORDER [facility] [address] [place] [address] * INR (12/28/2023 6:41 PM CDT) INR 1.01 0.85 - 1.15 12/28/2023 7:00 PM CDT [facility] Blood STRUCTURE OF RIGHT UPPER LIMB / Unknown Venipuncture / Unknown 12/28/2023 6:41 PM CDT 12/28/2023 6:46 PM CDT Agustin Cesar MD LAB - BLOOD ORD ERABLES Performing Organization Address City/[facility]/ZIP Co de Phone Number [facility] [address] Lab (1st floor, no room number) [place] [address] * Partial thromboplastin time (12/28/2023 6:41 PM CDT) aPTT 28 22 - 38 Seconds 12/28/2023 7:00 PM CDT [facility] Blood STRUCTURE OF RIGHT UPPER LIMB / Unknown Venipuncture / Unknown 12/28/2023 6:41 PM CDT 12/28/2023 6:46 PM CDT Agustin Cesar MD LAB - BLOOD ORD ERABRITTANY [facility] [address] Lab (1st floor, no room number) [place] [address], [facility] * (ABNORMAL) Comprehensive metabolic panel [...] 7:09 PM CDT [facility] Comment:eGFR calculated 2020 CKD-EPI equation. Calcium 8.6(L) 8.8 - [...] LAB - BLOOD ORD ERABLES [facility] [address] [facility] Lab (1st floor, no room number) [place] [address] * Vitamin D Deficiency (10/15/2023 3:13 PM CDT) Vitamin D, Total (25-Hydroxy) 32 20 - 50 ng/mL 10/17/2023 4:24 PM CDT [facility] Comment:optimum levels Blood BLOOD SPECIMEN / Unknown Client Draw / Unknown 10/15/2023 3:13 PM CDT 10/15/2023 4:25 PM CDT Narrative [facility] - 10/17/2023 4:24 PM CDT Season, race, dietary intake, and treatment affect the concentration of 13-cftjlsq-Lmyrdxv D. Values may decrease during winter months and increase during summer months. Vitamin D determination is routinely performed by an immunoassay specific for 25 hydroxyvitamin D3. ??If an individual is on vitamin D2(ergocalciferol) supplementation, please specify 25 OH vitamin D2 and D3 level determination by LCMSMS test VITD23. [facility] LAB - BLOOD ORDERABL ES [facility] [place] [facility] [address] [facility], [address] [place] [address] * (ABNORMAL) Hemoglobin A1c (10/15/2023 3:13 PM CDT) Hemoglobin A1C 10.8(H) <5.7 % 10/15/2023 4:57 PM CDT [facility] Comment: Normal <5.7% Prediabetes 5.7-6.4% ?? Diabetes 6.5% or higher Note: Adopted from ADA consensus guidelines. Blood BLOOD SPECIMEN / Unknown Client Draw / Unknown 10/15/2023 3:13 PM CDT 10/15/2023 4:25 PM CDT [facility] LAB - BLOOD ORDERABL ES [facility] [address] Lab (1st floor, no room number) [place] [address], [facility] from Last 3 Months Advance Directives For more information, please contact: [phone] Documents on File Type Date Recorded Patient Water Filtration Technician Expl anation Advance Directives and Living Will [...] patie nt/ legal decision maker Care Teams Power System Electrical Engineer Relationship Specialty Start Date End Date Services, [facility] Physician [address] [place] [address], [address] [address] PCP - General 05/22/21 Prince Tobar MD [address] [place] [id number] Cardiovascular Disease 03/26/22 Prince Tobar MD [address] [place] [phone] Assigned Heart and Vascular Provider 05/30/22 Matilde Pérez PA-C [address] [place] [address] Physician Certified Wellness Program Coordinator Physician Certified Wellness Program Coordinator - Surgical 12/30/23
== END 2023-12-27 11:06 | disposition home or self-care (01) ==
LOC: AMB 01-13 04:26
PROVIDERS: Visit Provider Emergency Medicine
DX: M54.9 Dorsalgia, unspecified (principal); E66.9 Obesity, unspecified
CPT/HCPCS: A0425; A0428

== ENCOUNTER 2023-12-28 17:38 | Outpatient (CLI) | payer MEDICARE, MEDICAID, SELFPAY ==
--- OUTSIDE RECORDS SUMMARY | 2023-12-30 01:13 | XMS_ITS | Encounter Summary ---
Author Organization [employer] Address [address] [place] [address] Care Team Providers Care Buzzsaw Operator Helper Name Role Phone Services, [facility] Physician Primary Care Provi sadia Prince Tobar MD Unavailable [phone] Prince Tobar MD Unavailable [phone] Reason for Referral * Consultation (Priority: 1-2 Weeks) - Pending Review Specialty Diagnoses / Procedures Referred By Contjohnny dalal Referred To Contact Colon and Rectal Surgery Diagnoses Anal fissure External hemorrhoids Reinaldo Beltran PA-C [facility] [address] [place] [place] [address] Referral ID Status Reason Start Date Expiration Date V isits Requested Visits Authorized [id number] Pending Review 12/28/2023 12/27/2024 1 1 Question Answer Reason for Referral: Anal Fissure Special Concerns: Other My Clinical Question Is: Anal fissure, taking Apixaban Scheduling Instructions: [employer] will call you to coordinate care as prescribed your provider. If you don? t hear from a sales representative meats within 2 business days, please call . Comments Please be aware that coverage of these services is subject to the terms and limitations of your health insurance plan. Call member services at your health plan with any benefit or coverage questions. [employer] will call you to coordinate care as prescribed your provider. If you don? t hear from a sales representative meats within 2 business days, please call . Reason for Visit * Reason Comments Rectal Bleeding Encounter Details Date Type Department Care Team (Late st Contact Info) Description 12/28/2023 6:08 PM CDT - 12/29/2023 12:59 AM CDT Emergency [facility] Emergency Dept [address] [place] [address] Agustin Cesar MD [address] [place] [address] Anal fissure; External hemorrhoids Discharge Disposition: Retirement Facility Social History Tobacco Use Types Packs/Day [...] Choose not to disclose 2021 8:14 AM CLINICAL RESEARCH ASSISTANT documented as of this encounter Last Filed [...] PM CDT Thank you for coming to [facility] emergency department. The bleeding you noted [...] mouth daily cholecalciferol (VITAMIN D3) 1250 mcg (35788 units) capsule Take 1,250 mcg by mouth [...] 200 mg by mouth daily nystatin (MYCOSTATIN) 482420 UNIT/GM external powder Apply topically 2 times [...] MG tablet cholecalciferol (VITAMIN D3) 1250 mcg (90298 units) capsule clotrimazole (LOTRIMIN) 1 % external [...] 200 MG 24 hr tablet nystatin (MYCOSTATIN) 155975 UNIT/GM external powder pantoprazole (PROTONIX) 40 MG [...] POS Antibody Screen Negative SPECIMEN EXPIRATION DATE [id number] ABO/RH TYPE AND SCREEN Emergency Department Course [...] 1. Anal fissure K60.2 Adult Colorectal Surgery Special Skills Officer Referral 2. External hemorrhoids K64.4 Adult Colorectal Surgery Special Skills Officer Referral Discharge Medications: New Prescriptions HYDROCORTISONE, PERIANAL, [...] yesterday, he went to a clinic in [place], he is unsure of what was done [...] MG tablet cholecalciferol (VITAMIN D3) 1250 mcg (30688 units) capsule clotrimazole (LOTRIMIN) 1 % external [...] 200 MG 24 hr tablet nystatin (MYCOSTATIN) 772272 UNIT/GM external powder pantoprazole (PROTONIX) 40 MG [...] POS Antibody Screen Negative SPECIMEN EXPIRATION DATE [id number] ABO/RH TYPE AND SCREEN Imaging No orders to display Independent Interpretation None ED Course Medications Administered Medications - No data to display Procedures Procedures Discussion of Management Staffed with Dr. Cesar ED Course ED Course as of 12/28/231936Dec 28, [id number] I evaluated and examined the patient 1902 Rectal exam with RN at bedside Additional Documentation None Medical Decision Making / Diagnosis [facility] Diagnoses: None MIPS None [facility] Leonid Leahy is a 63 year old [...] 1. Anal fissure K60.2 Adult Colorectal Surgery Special Skills Officer Referral 2. External hemorrhoids K64.4 Adult Colorectal Surgery Special Skills Officer Referral Discharge Medications New Prescriptions HYDROCORTISONE, PERIANAL, [...] Pt comes from assisted living facility in [place]. * Tamiko Monzon RN - 12/28/2023 6:08 PM CDT Bed: ED01 Expected date: Expected time: Means of arrival: Comments: [id number] 63Ym documented in this encounter Plan of Treatment Scheduled Referrals Name Type Priority Associated Diagnoses Orde r Schedule Adult Colorectal Surgery Special Skills Officer Referral Referral Priority: 1-2 Weeks Anal fissure [...] CDT RH BLOOD BANK SPECIMEN EXPIRATION DATE [id number] 12/28/2023 6:28 PM CDT RH BLOOD BANK Blood STRUCTURE OF RIGHT UPPER LIMB / Unknown Venipuncture / Unknown 12/28/2023 6:41 PM CDT 12/28/2023 6:46 PM CDT Agustin Cesar MD LAB - BLOOD BAN K TEST ORDER BLOOD BANK [address] [place] [address], [facility] * (ABNORMAL) CBC with platelets and [...] LAB - BLOOD ORD ERABLES [facility] LABORAT[facility] [address] [facility] Lab (1st floor, no room number) [place] [address], [facility] * (ABNORMAL) Comprehensive metabolic panel (12/28/2023 [...] Cesar MD LAB - BLOOD ORD ERABLES [facility] [address] Lab (1st floor, no room number) [address] * Partial thromboplastin time (12/28/2023 6:41 PM CDT) aPTT 28 22 - 38 Seconds 12/28/2023 7:00 PM CDT [facility] Blood STRUCTURE OF RIGHT UPPER LIMB / Unknown Venipuncture / Unknown 12/28/2023 6:41 PM CDT 12/28/2023 6:46 PM CDT Agustin Cesar MD LAB - BLOOD ORD ERABRITTANY Performing Organization Address [facility]/ZIP Co de Phone Number [facility] [address] Lab (1st floor, no room number) [place] [id number] [place] [address] * INR (12/28/2023 6:41 PM CDT) INR 1.01 0.85 - 1.15 12/28/2023 7:00 PM CDT [facility] Blood STRUCTURE OF RIGHT UPPER LIMB / Unknown Venipuncture / Unknown 12/28/2023 6:41 PM CDT 12/28/2023 6:46 PM CDT Agustin Cesar MD LAB - BLOOD ORD ERABLES [facility] Acute Care Lab [address] Lab (1st floor, no room number) [place] [address], [facility] documented in this encounter Visit Diagnoses Diagnosis Anal fissure External hemorrhoids External hemorrhoids without mention of complication documented in this encounter Care Teams Buzzsaw Operator Helper Relationship Specialty Start Date End Date Services, [facility] Physician [address] [place] [address] PCP - General 05/22/21 Prince Tobar MD [address] [place] [address] Cardiovascular Disease 03/26/22 Prince Tobar MD [address] [place] [address] Assigned Heart and Vascular Provider 05/30/22 documented as of this encounter
--- OUTSIDE RECORDS SUMMARY | 2023-12-30 01:13 | XMS_ITS | Clinical Summary ---
Author Organization [facility] Address [address] [place] [address] Phone Care Team Providers Care Parts Facilitator Name Role Phone Mellisa Shirley PA-C Primary Care Provider [phone] Allergies Active Allergy Reactions Criticality Noted Date [...] 05/26/2021 Active cholecalciferol (VITAMIN D-3) 1.25 MG (60374 UT) capsule Take 1,250 mcg by mouth [...] age to complete this topic Care Teams Parts Facilitator Relationship Specialty Start Date End Date Mellisa Shirley PA-C PCP - General Physician Conditioner Tender 08/31/22
--- OUTSIDE RECORDS SUMMARY | 2023-12-30 01:13 | XMS_ITS | Clinical Summary ---
Author Organization [employer] [facility] [employer] [facility] Address [place], [place] [address] Care Team Providers Care Career Counselor Name Role Phone Alan Lopez MD Unavailable [phone] Nishant Watson MD Unavailable Pcp, No Primary [...] type 2 diabetes mellitus (HC),Chronic edema JOBST #[id number] LRG FULL CALF KNEE BLACK 20-30 COMPRESSION [...] mg extended release tablet 24 HourIndications:CAD in [place] artery Take 1 tablet by mouth once [...] call MD 0 04/01/2020 Active Insulin Safety [place], Disp, (NOVOFINE AUTOCOVER) 30 gauge x /3Indications:Cecelia [...] at 10 am and no showed. RN Athletic Field Custodian, Juanita Yoo, notified and she will attempt to reschedule at patient's next clinic visit. Pt has no phone. Patient has identified Health Care Agent(s): Yes Add Health Care Agents: Yes Health Care Agent(s): Primary Health Care Agent: Brittany uSggs Relationship: Sister Secondary Health Care Agent: Relationship: Phone: Conservator: Relationship: Phone: Guardian: Relationship: Phone: Patient has Advance Care Plan Documents (Health Care Directive, POLST): No, referral made to Advance Care Plan Tannery Worker. Patient has identified Specific Treatment Preferences: No Sophia Méndez RN .................... 07/06/2011 2:30 PM] Specific limits to treatment preferences NOT identified: ASSUME FULL TREATMENT. Last Assessment & Plan: Advance Care Planning: Disease-specific Session Leonid Leahy is a [facility] [place] patient. His PCP is Leandra Limon at [facility]. Advance care planning discussions were completed with Leonid. He identified his sister, Brittany Suggs, as his healthcare agent. Brittany was not present for ACP session. Understanding of Illness and Disease [place]: Leonid identifies his medical condition as what ain't I treated for, Diabetes- insulin dependent, checks BS 5x/daily; slight heart attack in 2009; hypertension: sleep apnea on CPAP; Kidney failure-retaining fluid in legs, abdomen and lungs, seeing Dr. Loepz for management; Seizures managed with meds; Neuropathy-feet [...] to live well: Daily visit to local [email or web address] for a pop and to visit and catch up in the news with locals. Leonid obed with serious challenges in his life: Support of his sister, only a phone call away. Helps manage replaced by [facility] services. Leonid identifies the following fears and [...] return to previous state, discontinue mechanical ventilation. Lenoid has chosen his healthcare agent to: do what she thinks is best at the time, considering Leonid's wishes. Follow Up Plan: Leonid was encouraged to continue advance care planning discussions with his Designated Health Care Agent: Brittany Suggs and primary care provider. Hard Choices for [place] People booklet was sent to Leonid and his health care agent for review. Leonid requested all information be mailed to his sister and singer songwriter to place call to sister to explain process. Leonid identified the following concerns during his advance care planning session: needing assistance at home to ensure he is managing his medications and treatments to keep going as is and stabilizing. Is followed by Clinic Tutoring Assistant for needed services. Questions identified for his primary care provider: none Documents addressed during this advance care planning session: Health Care Directive completed and scanned into medical record. Statement of Treatment Preferences for advanced illness completed and scanned into the medical record. Recommendations/Plan: Leonid to review Advance Care Plan with Leonid's healthcare agent. Water Resource Engineer will be contacting Leonid's [facility] to explain services rendered, eLonid would benefit from: Home Care and/or Hospice when / if appropriate. [facility] services involved, sister supports coordination of [...] 2:27 PM Sophia Méndez RN RN Clinic Tutoring Assistant - [facility] [phone] Vitamin D deficiency 01/06/2011 011 Neuropathy 09/25/2010 [...] Department Care Team Description 11/01/2023 Lab Requisition [address] [address] Harrison Munson DNP from Last 3 Months [...] 176.9 kg (390 lb) 07/14/2022 6:10 PM SOFTWARE ARCHITECT Height 167.6 cm (5' 6) 07/14/2022 6:10 PM SOFTWARE ARCHITECT Body Mass Index 62.95 07/14/2022 6:10 PM SOFTWARE ARCHITECT Plan of Treatment Health Maintenance Due Date [...] Kay García Medical Devices Implanted Type Area Retail Sales Advisor Device Identifier Shelf Expiration Date Model / Serial / Lot Iol [place] +20 Tecnis Zcb00 - [id number] Implanted:Qty: 1 on 07/15/2022 by Tanner Fuentes MD at [facility] Left: Eye [employer] 06/24/2025 ZCB00 20.0 / [id number] / Iol [place] +20 Tecnis Zcb00 - [id number] Implanted:Qty: 1 on 08/19/2022 by Tanner Fuentes MD at [facility] Right: Eye [employer] 06/24/2025 ZCB00 20.0 / [id number] / Procedures Procedure Name Priority Date/Time Associated Diagnosis Comments BASIC METABOLIC PANEL Routine 11/01/2023 10:10 AM CDT Hypokalemia LIPID PANEL Routine 03/13/2019 2:31 PM CDT Essential hypertriglyceridemia from Last 3 Months or Most Recently Relevant to Health Maintenance Results * (ABNORMAL) BASIC METABOLIC PANEL (11/01/2023 10:10 AM CDT) SODIUM 140 136 - 145 mmol/L 11/01/2023 12:09 PM CDT [facility] POTASSIUM 3.7 3.5 - 5.1 mmol/L 11/01/2023 12:09 PM CDT [facility] CHLORIDE 97(L) 98 - 107 mmol/L 11/01/2023 12:09 PM CDT [facility] CO2,TOTAL 32(H) 22 - 29 mmol/L 11/01/2023 12:09 PM CDT [facility] ANION GAP 11 5 - 18 11/01/2023 12:09 PM CDT [facility] GLUCOSE 397(H) 70 - 99 mg/dL 11/01/2023 12:09 PM CDT [facility] CALCIUM 9.2 8.8 - 10.2 mg/dL 11/01/2023 12:09 PM CDT [facility] BUN 24(H) 8 - 23 mg/dL 11/01/2023 12:09 PM CDT [facility] CREATININE 1.09 0.70 - 1.20 mg/dL 11/01/2023 12:09 PM CDT [facility] BUN/CREAT RATIO 22(H) 10 - 20 12:09 PM CDT [facility] eGFR 76(L) >90 mL/min/1.7 3m2 11/01/2023 12:09 PM CDT [facility] Comment:As of 2021, eG FR is [...] DNP CHEMISTRY [facility] [address] [place] [address], * (ABNORMAL) LIPID PANEL (03/13/2019 2:31 PM [...] 2:31 PM CDT Suellen Sosa MD [facility] [address] [place] [address], [place] from Last 3 Months or Most Recently Relevant to Health Maintenance Advance Directives Documents on File Type Date Recorded Patient Environmental Health And Safety Intern Expl anation POLST 09/26/2014 3:45 PM AH [...] 9:30 PM 03/19/2009 6:17 PM Care Teams Career Counselor Relationship Specialty Start Date End Date Pcp, No . PCP - General 07/15/22 Alan Lopez MD Internal Medicine Internal Medicine 11/20/10 Nishant Watson MD [address] [place] [address] Endocrinology 08/15/13
--- OUTSIDE RECORDS SUMMARY | 2023-12-30 01:13 | XMS_ITS | Encounter Summary ---
Author Organization [place] Address [address] [facility] [place] [address] Care Team Providers Care Candle Making Supervisor Name Role Phone Services, [facility] Physician Primary Care Provi sadia Prince Tobar MD Unavailable [phone] Prince Tobar MD Unavailable [phone] Encounter Details Date Type Department Care Team [...] Choose not to disclose 2021 8:14 AM DIE MACHINE OPERATOR documented as of this encounter Plan of Treatment Not on file documented as of this encounter Visit Diagnoses Not on filedocumented in this encounter Care Teams Candle Making Supervisor Relationship Specialty Start Date End Date Services, [facility] Physician [address] [address] [place], [place] [id number] PCP - General 05/22/21 Prince Tobar MD [address] [place] [address] Cardiovascular Disease 03/26/22 Prnice Tobar MD [address] [place] [address] Assigned Heart and Vascular Provider 05/30/22 documented as of this encounter
--- OUTSIDE RECORDS SUMMARY | 2023-12-30 01:13 | XMS_ITS | Referral Summary ---
Author Organization [facility] Address [address] [place] [address] Care Team Providers Care Pearl Glue Drier Name Role Phone Services, [facility] Physician Primary Care Provi sadia Prince Tobar MD Unavailable Prince Tobar MD Unavailable Encounters Date Type Department Care Team Description 12/28/2023 6:08 PM CDT - 12/29/2023 12:59 AM CDT Emergency [facility] Emergency Dept [address] [place] [address] Agustin Cesar MD Anal fissure; External hemorrhoids Discharge Disposition: Long Term Facility 12/28/2023 Travel from Last 3 Months [...] daily Active cholecalciferol (VITAMIN D3) 1250 mcg (69788 units) capsule Take 1,250 mcg by mouth every 7 days on Wednesdays. 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 Last Filed Vital Signs Vital Sign Reading [...] without heart failure Atherosclerotic heart disease of [place] coronary artery without angina pectoris Body mass index (BMI) 60.0-69.9, adult (H) Chronic kidney disease, unspecified COMPREHENSIVE METABOLIC PANEL Routine 10/15/2023 3:13 PM CDT Hypertensive heart disease without heart failure Atherosclerotic heart disease of [place] coronary artery without angina pectoris Body mass index (BMI) 60.0-69.9, adult (H) Chronic kidney disease, unspecified CBC WITH PLATELETS AND DIFFERENTIAL Routine 10/15/2023 3:13 PM CDT Hypertensive heart disease without heart failure Atherosclerotic heart disease of [place] coronary artery without angina pectoris Body mass index (BMI) 60.0-69.9, adult (H) Chronic kidney disease, unspecified VITAMIN D DEFICIENCY SCREENING Routine 10/15/2023 3:13 PM CDT Hypertensive heart disease without heart failure Atherosclerotic heart disease of [place] mart[place] coronary artery without angina pectoris Body mass index (BMI) 60.0-69.9, adult (H) Chronic kidney disease, unspecified HEMOGLOBIN A1C Routine 10/15/2023 3:13 PM CDT Hypertensive heart disease without heart failure Atherosclerotic heart disease of [place] mart[place] coronary artery without angina pectoris Body mass [...] MD LAB - BLOOD ORD ERABLES LABORATORY [facility] Acute Care Lab [address] Lab (1st floor, no room number) [place] [address] * Adult Type and Screen (12/28/2023 6:41 PM CDT) ABO/RH(D) A POS 12/28/2023 6:28 PM CDT RH BLOOD BANK Antibody Screen Negative Negative 12/28/2023 6:28 PM CDT RH BLOOD BANK SPECIMEN EXPIRATION DATE [id number] 12/28/2023 6:28 PM CDT RH BLOOD BANK Blood STRUCTURE OF RIGHT UPPER LIMB / Unknown Venipuncture / Unknown 12/28/2023 6:41 PM CDT 12/28/2023 6:46 PM CDT Agustin Cesar MD LAB - BLOOD BAN K TEST ORDER RH BLOOD BANK [address] [place] [address] * INR (12/28/2023 6:41 PM CDT) INR 1.01 0.85 - 1.15 12/28/2023 7:00 PM CDT RH LABORATORY Blood STRUCTURE OF RIGHT UPPER LIMB / Unknown Venipuncture / Unknown 12/28/2023 6:41 PM CDT 12/28/2023 6:46 PM CDT Agustin Cesar MD LAB - BLOOD ORD ERABLES LABORATORY [facility] Acute Care Lab [address] Lab (1st floor, no room number) [address] * Partial thromboplastin time (12/28/2023 6:41 PM CDT) aPTT 28 22 - 38 Seconds 12/28/2023 7:00 PM CDT LABORATORY Blood STRUCTURE OF RIGHT UPPER LIMB / Unknown Venipuncture / Unknown 12/28/2023 6:41 PM CDT 12/28/2023 6:46 PM CDT Agustin Cesar MD LAB - BLOOD ORD ERABLES Performing Organization Address City/[facility]/ZIP Co de Phone Number [facility] Care Lab [address] Lab (1st floor, no room number) [address] * (ABNORMAL) Comprehensive metabolic panel (12/28/2023 [...] MD LAB - BLOOD ORD ERABLES LABORATORY [facility] Acute Care Lab [address] [facility] Lab (1st floor, no room number) [place] [address], [facility] * Vitamin D Deficiency (10/15/2023 3:13 PM CDT) Vitamin D, Total (25-Hydroxy) 32 20 - 50 ng/mL 10/17/2023 4:24 PM CDT [facility] LAB[facility]ATORY Comment:optimum levels Blood BLOOD SPECIMEN / Unknown Client Draw / Unknown 10/15/2023 3:13 PM CDT 10/15/2023 4:25 PM CDT [facility] LABORATORY - 10/17/2023 4:24 PM CDT Season, race, dietary intake, and treatment affect the concentration of 24-mcbmurr-Ixrydmm D. Values may decrease during winter months and increase during summer months. Vitamin D determination is routinely performed by an immunoassay specific for 25 hydroxyvitamin D3. ??If an individual is on vitamin D2(ergocalciferol) supplementation, please specify 25 OH vitamin D2 and D3 level determination by LCMSMS test VITD23. Harrison Munson LAB - BLOOD ORDERABL ES LABORATORY [facility] [place] [facility] [address] [facility], [address] [place] [address] * (ABNORMAL) Hemoglobin A1c (10/15/2023 3:13 PM CDT) Hemoglobin A1C 10.8(H) <5.7 % 10/15/2023 4:57 PM CDT LABORATORY Comment: Normal <5.7% Prediabetes 5.7-6.4% ?? Diabetes 6.5% or higher Note: Adopted from ADA consensus guidelines. Blood BLOOD SPECIMEN / Unknown Client Draw / Unknown 10/15/2023 3:13 PM CDT 10/15/2023 4:25 PM CDT Harrison Putnam LAB - BLOOD ORDERABL ES LABORATORY [facility] Acute Care Lab [address] [facility] Lab (1st floor, no room number) [place] [address] from Last 3 Months Advance Directives For more information, please contact: [phone] Documents on File Type Date Recorded Patient Senior Sales Operations Manager Expl anation Advance Directives and Living [...] yissel nt/ legal decision maker Care Teams Pearl Glue Drier Relationship Specialty Start Date End Date Services, [facility] Physician [address] [place] [address] [phone] PCP - General 05/22/21 Prince Tobar MD [address] [place] [address] Cardiovascular Disease 03/26/22 Prince Tobar MD [address] [place] [address] Assigned Heart and Vascular Provider 05/30/22
--- OUTSIDE RECORDS SUMMARY | 2023-12-30 01:13 | XMS_ITS | Clinical Summary ---
Author Organization [facility] Address [address] [place] [address] Care Team Providers Care Senior Systems Developer Name Role Phone Services, [facility] Physician Primary Care Provi sadia Prince Tobar [...] daily Active cholecalciferol (VITAMIN D3) 1250 mcg (72680 units) capsule Take 1,250 mcg by mouth every 7 days on Wednesdays. Active venlafaxine (EFFEXOR-XR) 75 MG 24 hr capsule Take 225 mg by mouth daily Active hydrALAZINE (APRESOLINE) 50 MG tablet Take 50 mg by mouth 4 times daily Active polyethylene glycol (MIRALAX) 17 GM/Dose powder Take 17 g by mouth daily Active nystatin (MYCOSTATIN) 310559 UNIT/GM external powder Apply topically 2 times [...] CDT - 12/29/2023 12:59 AM CDT Emergency [facility] Emergency Dept [address] [place] [id number] Agustin Cesar MD Anal fissure; External hemorrhoids Discharge Disposition: Nursing Home Facility 12/28/2023 Travel from Last 3 Months Immunizations Name Administration Dates Next Due COVID-19 MONOVALENT 12+ (Pfizer) 06/25/2020,05/17 C8c7-79 Novel Flu 05/07/2009 Hepatitis B, Adult 02/16/2014,10/12/2013, [...] Choose not to disclose 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 Last Filed Vital Signs Vital Sign [...] without heart failure Atherosclerotic heart disease of [place] coronary artery without angina pectoris Body mass index (BMI) 60.0-69.9, adult (H) Chronic kidney disease, unspecified COMPREHENSIVE METABOLIC PANEL Routine 10/15/2023 3:13 PM CDT Hypertensive heart disease without heart failure Atherosclerotic heart disease of [place] coronary artery without angina pectoris Body mass index (BMI) 60.0-69.9, adult (H) Chronic kidney disease, unspecified CBC WITH PLATELETS AND DIFFERENTIAL Routine 10/15/2023 3:13 PM CDT Hypertensive heart disease without heart failure Atherosclerotic heart disease of [place] coronary artery without angina pectoris Body mass index (BMI) 60.0-69.9, adult (H) Chronic kidney disease, unspecified VITAMIN D DEFICIENCY SCREENING Routine 10/15/2023 3:13 PM CDT Hypertensive heart disease without heart failure Atherosclerotic heart disease of [place] coronary artery without angina pectoris Body mass index (BMI) 60.0-69.9, adult (H) Chronic kidney disease, unspecified HEMOGLOBIN A1C Routine 10/15/2023 3:13 PM CDT Hypertensive heart disease without heart failure Atherosclerotic heart disease of [place] coronary artery without angina pectoris Body mass [...] MD LAB - BLOOD ORD ERABLES LABORATORY [facility] Acute Care Lab [address] Lab (1st floor, no room number) [place] [address] * Adult Type and Screen (12/28/2023 6:41 PM CDT) ABO/RH(D) A POS 12/28/2023 6:28 PM CDT RH BLOOD BANK Antibody Screen Negative Negative 12/28/2023 6:28 PM CDT RH BLOOD BANK SPECIMEN EXPIRATION DATE [id number] 12/28/2023 6:28 PM CDT RH BLOOD BANK Blood STRUCTURE OF RIGHT UPPER LIMB / Unknown Venipuncture / Unknown 12/28/2023 6:41 PM CDT 12/28/2023 6:46 PM CDT Agustin Cesar MD LAB - BLOOD BAN K TEST ORDER RH BLOOD BANK [address] [place] [address] * INR (12/28/2023 6:41 PM CDT) INR 1.01 0.85 - 1.15 12/28/2023 7:00 PM CDT RH LABORATORY Blood STRUCTURE OF RIGHT UPPER LIMB / Unknown Venipuncture / Unknown 12/28/2023 6:41 PM CDT 12/28/2023 6:46 PM CDT Agustin Cesar MD LAB - BLOOD ORD ERABLES [facility] Acute Care Lab [address] Lab (1st floor, no room number) [place] [address] * Partial thromboplastin time (12/28/2023 6:41 PM CDT) aPTT 28 22 - 38 Seconds 12/28/2023 7:00 PM CDT LABORATORY Blood STRUCTURE OF RIGHT UPPER LIMB / Unknown Venipuncture / Unknown 12/28/2023 6:41 PM CDT 12/28/2023 6:46 PM CDT Agustin Cesar MD LAB - BLOOD ORD ERABRITTANY Performing Organization Address City/[facility]/ZIP Co de Phone Number [facility] Acute Care Lab [address] Lab (1st floor, no room number) [place] [address] * (ABNORMAL) Comprehensive metabolic panel [...] MD LAB - BLOOD ORD ERABLES LABORATORY [facility] Acute Care Lab [address] [facility] Lab (1st floor, no room number) [place] [address], [place] * Vitamin D Deficiency (10/15/2023 3:13 PM CDT) Vitamin D, Total (25-Hydroxy) 32 20 - 50 ng/mL 10/17/2023 4:24 PM CDT [facility] LABORATORY Comment:optimum levels Blood BLOOD SPECIMEN / Unknown Client Draw / Unknown 10/15/2023 3:13 PM CDT 10/15/2023 4:25 PM CDT Narrative [facility] LABORATORY - 10/17/2023 4:24 PM CDT Season, race, dietary intake, and treatment affect the concentration of 19-ekmuonb-Iicpexa D. Values may decrease during winter months and increase during summer months. Vitamin D determination is routinely performed by an immunoassay specific for 25 hydroxyvitamin D3. ??If an individual is on vitamin D2(ergocalciferol) supplementation, please specify 25 OH vitamin D2 and D3 level determination by LCMSMS test VITD23. Harrison Arpit LAB - BLOOD ORDERABL ES UU LABORATORY [facility] [place] [facility] [address] [facility], [address] [address] * (ABNORMAL) Hemoglobin A1c (10/15/2023 3:13 PM CDT) Hemoglobin A1C 10.8(H) <5.7 % 10/15/2023 4:57 PM CDT RH LABORATORY Comment: Normal <5.7% Prediabetes 5.7-6.4% ?? Diabetes 6.5% or higher Note: Adopted from ADA consensus guidelines. Blood BLOOD SPECIMEN / Unknown Client Draw / Unknown 10/15/2023 3:13 PM CDT 10/15/2023 4:25 PM CDT Harrison Putnam LAB - BLOOD ORDERABL ES LABORATORY [facility] Acute Care Lab [address] Lab (1st floor, no room number) [place] [address], [place] from Last 3 Months Advance Directives For more information, please contact: [phone] Documents on File Type Date Recorded Patient Hr Operations Advisor Expl anation Advance Directives and Living Will [...] yissel nt/ legal decision maker Care Teams Senior Systems Developer Relationship Specialty Start Date End Date Services, [facility] Physician [address] [place] [address] PCP - General 05/22/21 Prince Tobar MD [address] [place] [address] Cardiovascular Disease 03/26/22 Prince Tobar MD [address] [place] [address] Assigned Heart and Vascular Provider 05/30/22
== END 2023-12-28 17:39 | disposition home or self-care (01) ==
LOC: AMB 12-30 00:44
PROVIDERS: Visit Provider Emergency Medicine
DX: K62.5 Hemorrhage of anus and rectum (principal)
CPT/HCPCS: A0425; A0427

== ENCOUNTER 2023-12-29 01:00 | Outpatient (CLI) | payer MEDICARE, MEDICAID, SELFPAY ==
--- OUTSIDE RECORDS SUMMARY | 2023-12-30 03:04 | XMS_ITS | Encounter Summary ---
Author Organization [facility] Address [address] [facility] [place] [address] Care Team Providers Care Rivet Catcher Name Role Phone Services, [facility] Physician Primary Care Provi sadia Prince Tobar MD Unavailable [phone] Prince Tobar MD Unavailable [phone] Encounter Details Date Type Department Care Team [...] Choose not to disclose 2021 8:14 AM ER MANAGER documented as of this encounter Plan of Treatment Not on file documented as of this encounter Visit Diagnoses Not on filedocumented in this encounter Care Teams Rivet Catcher Relationship Specialty Start Date End Date Services, [facility] Physician [address] [facility] [address] [place], [place] [phone] PCP - General 05/22/21 Prince Tobar MD [address] [place] [address] Cardiovascular Disease 03/26/22 Prince Tobar MD [address] [place] [address] Assigned Heart and Vascular Provider 05/30/22 documented as of this encounter
--- OUTSIDE RECORDS SUMMARY | 2023-12-30 03:04 | XMS_ITS | Clinical Summary ---
Author Organization [facility] Address [place], [place] [address] Care Team Providers Care Executive Director Of Marketing Name Role Phone Alan Lopez MD Unavailable [phone] Nishant Watson MD Unavailable [phone] Pcp, No Primary Care Provider Unavailabl [...] type 2 diabetes mellitus (HC),Chronic edema JOBST #[id number] LRG FULL CALF KNEE BLACK 20-30 COMPRESSION [...] mg extended release tablet 24 HourIndications:CAD in [place] artery Take 1 tablet by mouth once [...] call MD 0 04/01/2020 Active Insulin Safety [place], Disp, (NOVOFINE AUTOCOVER) 30 gauge x /3Indications:Cecelia [...] at 10 am and no showed. RN Jacquard Loom Fixer, Juanita Yoo, notified and she will attempt [...] No, referral made to Advance Care Plan Closing Supervisor. Patient has identified Specific Treatment Preferences: No Sophia Méndez RN .................... 07/06/2011 2:30 PM] Specific limits to treatment preferences NOT identified: ASSUME FULL TREATMENT. Last Assessment & Plan: Advance Care Planning: Disease-specific Session Leonid Leahy is a [facility] patient. His PCP is Leandra Limon at [facility]. Advance care planning discussions were completed with Leonid. He identified his sister, Brittany Suggs, as his healthcare agent. Brittany was not present for ACP session. Understanding of Illness and Disease Coats: Leonid identifies his medical condition as what [...] to live well: Daily visit to local [employer] for a pop and to visit and catch up in the news with locals. Leonid obed with serious challenges in his life: Support of his sister, only a phone call away. Helps manage [facility] services. Leonid identifies the following fears and [...] and primary care provider. Hard Cho[employer] for [place] People booklet was sent to Leonid and his health care agent for review. Leonid requested all information be mailed to his sister and senior copywriter to place call to sister to explain process. Leonid identified the following concerns during his advance care planning session: needing assistance at home to ensure he is managing his medications and treatments to keep going as is and stabilizing. Is followed by [facility] for needed services. Questions identified for his primary care provider: none Documents addressed during this advance care planning session: Health Care Directive completed and scanned into medical record. Statement of Treatment Preferences for advanced illness completed and scanned into the medical record. Recommendations/Plan: Leonid to review Advance Care Plan with Leonid's healthcare agent. [facility] Assistant will be contacting Leonid's [facility] to explain services rendered, Leonid would benefit from: Home Care and/or Hospice when / if appropriate. [facility] services involved, sister supports coordination of [...] 2:27 PM Sophia Méndez RN RN [facility] [phone] Vitamin D deficiency 01/06/2011 011 Neuropathy 09/25/2010 [...] Care Team Description 11/01/2023 Lab Requisition [address] [address] Harrison Munson DNP from Last 3 Months [...] 176.9 kg (390 lb) 07/14/2022 6:10 PM LOADING AND UNLOADING SUPERVISOR Height 167.6 cm (5' 6) 07/14/2022 6:10 PM LOADING AND UNLOADING SUPERVISOR Body Mass Index 62.95 07/14/2022 6:10 PM LOADING AND UNLOADING SUPERVISOR Plan of Treatment Health Maintenance Due Date [...] [employer] Implanted Type Area Director Biologics Device Identifier Shelf Expiration Date Model / Serial / Lot Iol Luce +20 Tecnis Zcb00 - [id number] Implanted:Qty: 1 on 07/15/2022 by Tanner Fuentes MD at [facility] Left: Eye [employer] 06/24/2025 ZCB00 20.0 / [id number] / Iol Luce +20 Tecnis Zcb00 - [id number] Implanted:Qty: 1 on 08/19/2022 by Tanner Fuentes MD at [facility] Right: Eye [employer] 06/24/2025 ZCB00 20.0 / [id number] / Procedures Procedure Name Priority Date/Time Associated [...] 11:43 AM CDT Harrison Munson DNP CHEMISTRY [facility] [address] [place] [address], * (ABNORMAL) LIPID PANEL (03/13/2019 2:31 PM CDT) CHOLESTEROL,TOTAL 193 100 - 199 mg/dL 03/13/2019 9:25 PM CDT [facility] LABORAT[facility] TRIGLYCERIDES 715(H) <150 mg/dL 03/13/2019 9:25 PM CDT [facility] HDL CHOLESTEROL 29(L) >40 mg/dL 9 9:25 PM CDT [facility] NON-HDL CHOLESTEROL 164(H) <145 mg/dl 03/13/2019 9:25 PM CDT [facility] CHOL/HDL RATIO 6.66(H) <4.50 03/13/2019 9:25 PM CDT [facility] LDL CHOLESTEROL 9 9:25 PM CDT [facility] Comment:Invalid LDL when Tri g >400. PROVIDER ORDERED STATUS RANDOM 03/13/2019 9:25 PM CDT [facility] Blood BLOOD SPECIMEN / Unknown Venipuncture / Unknown 03/13/2019 2:31 PM CDT 03/13/2019 2:31 PM CDT Suellen Sosa MD [facility] [address] [place] [address], [place] from Last 3 Months or Most Recently Relevant to Health Maintenance Advance Directives Documents on File Type Date Recorded Patient Wave Guide Assembler Expl anation POLST 09/26/2014 3:45 PM AH [...] 9:30 PM 03/19/2009 6:17 PM Care Teams Executive Director Of Marketing Relationship Specialty Start Date End Date Pcp, No . PCP - General 07/15/22 Alan Lopez MD Internal Medicine Internal Medicine 11/20/10 Nishant Watson MD [address] [place] [address] Endocrinology 08/15/13
--- OUTSIDE RECORDS SUMMARY | 2023-12-30 03:04 | XMS_ITS | Clinical Summary ---
Author Organization [facility] Address [address] [place] [address] Phone Care Team Providers Care Industrial Services Worker Name Role Phone Mellisa Shirley PA-C Primary Care Provider [phone] Allergies Active Allergy Reactions Criticality Noted Date [...] 05/26/2021 Active cholecalciferol (VITAMIN D-3) 1.25 MG (97240 UT) capsule Take 1,250 mcg by mouth [...] age to complete this topic Care Teams Industrial Services Worker Relationship Specialty Start Date End Date Mellisa Shirley PA-C PCP - General Physician Corporate Travel Coordinator 08/31/22
--- OUTSIDE RECORDS SUMMARY | 2023-12-30 03:04 | XMS_ITS | Clinical Summary ---
Author Organization [facility] Address [address] [place] [address] Care Team Providers Care Senior Qa Engineer Name Role Phone Services, [facility] Physician Primary Care Provi sadia Prince [...] daily Active cholecalciferol (VITAMIN D3) 1250 mcg (71914 units) capsule Take 1,250 mcg by mouth every 7 days on Wednesdays. Active venlafaxine (EFFEXOR-XR) 75 MG 24 hr capsule Take 225 mg by mouth daily Active hydrALAZINE (APRESOLINE) 50 MG tablet Take 50 mg by mouth 4 times daily Active polyethylene glycol (MIRALAX) 17 GM/Dose powder Take 17 g by mouth daily Active nystatin (MYCOSTATIN) 993555 UNIT/GM external powder Apply topically 2 times [...] CDT - 12/29/2023 12:59 AM CDT Emergency [facility] Emergency Dept [address] [place] [phone] Agustin Cesar MD Anal fissure; External hemorrhoids [facility] 12/28/2023 Travel from Last 3 Months Immunizations Name Administration Dates Next Due COVID-19 MONOVALENT 12+ (Pfizer) 06/25/2020,05/17 [id number] Novel Flu 05/07/2009 Hepatitis B, Adult 02/16/2014,10/12/2013, [...] Choose not to disclose 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 Last Filed Vital Signs Vital Sign Reading [...] without heart failure Atherosclerotic heart disease of [place] coronary artery without angina pectoris Body mass index (BMI) 60.0-69.9, adult (H) Chronic kidney disease, unspecified COMPREHENSIVE METABOLIC PANEL Routine 10/15/2023 3:13 PM CDT Hypertensive heart disease without heart failure Atherosclerotic heart disease of [place] coronary artery without angina pectoris Body mass index (BMI) 60.0-69.9, adult (H) Chronic kidney disease, unspecified CBC WITH PLATELETS AND DIFFERENTIAL Routine 10/15/2023 3:13 PM CDT Hypertensive heart disease without heart failure Atherosclerotic heart disease of [place] coronary artery without angina pectoris Body mass index (BMI) 60.0-69.9, adult (H) Chronic kidney disease, unspecified VITAMIN D DEFICIENCY SCREENING Routine 10/15/2023 3:13 PM CDT Hypertensive heart disease without heart failure Atherosclerotic heart disease of [place] coronary artery without angina pectoris Body mass index (BMI) 60.0-69.9, adult (H) Chronic kidney disease, unspecified HEMOGLOBIN A1C Routine 10/15/2023 3:13 PM CDT Hypertensive heart disease without heart failure Atherosclerotic heart disease of [place] coronary artery without angina pectoris Body mass [...] MD LAB - BLOOD ORD ERABLES LABORATORY [facility] Acute Care Lab [address] Lab (1st floor, no room number) [place] [address] * Adult Type and Screen (12/28/2023 6:41 PM CDT) ABO/RH(D) A POS 12/28/2023 6:28 PM CDT RH BLOOD BANK Antibody Screen Negative Negative 12/28/2023 6:28 PM CDT RH BLOOD BANK SPECIMEN EXPIRATION DATE [id number] 12/28/2023 6:28 PM CDT RH BLOOD BANK Blood STRUCTURE OF RIGHT UPPER LIMB / Unknown Venipuncture / Unknown 12/28/2023 6:41 PM CDT 12/28/2023 6:46 PM CDT Agustin Cesar MD LAB - BLOOD BAN K TEST ORDER RH BLOOD BANK [address] [place] [address] * INR (12/28/2023 6:41 PM CDT) INR 1.01 0.85 - 1.15 12/28/2023 7:00 PM CDT RH LABORATORY Blood STRUCTURE OF RIGHT UPPER LIMB / Unknown Venipuncture / Unknown 12/28/2023 6:41 PM CDT 12/28/2023 6:46 PM CDT Agustin Cesar MD LAB - BLOOD ORD ERABLES [facility] Acute Care Lab [address] Lab (1st floor, no room number) [place] [address] * Partial thromboplastin time (12/28/2023 6:41 PM CDT) aPTT 28 22 - 38 Seconds 12/28/2023 7:00 PM CDT LABORATORY Blood STRUCTURE OF RIGHT UPPER LIMB / Unknown Venipuncture / Unknown 12/28/2023 6:41 PM CDT 12/28/2023 6:46 PM CDT Agustin Cesar MD LAB - BLOOD ORD ERABRITTANY Performing Organization Address City/[facility]/ZIP Co de Phone Number [facility] Acute Care Lab [address] Lab (1st floor, no room number) [place] [address] * (ABNORMAL) Comprehensive metabolic panel (12/28/2023 [...] MD LAB - BLOOD ORD ERABLES LABORATORY [facility] Acute Care Lab [address] [facility] Lab (1st floor, no room number) [place] [address], [facility] * Vitamin D Deficiency (10/15/2023 3:13 PM CDT) Vitamin D, Total (25-Hydroxy) 32 20 - 50 ng/mL 10/17/2023 4:24 PM CDT [facility] Comment:optimum levels Blood BLOOD SPECIMEN / Unknown Client Draw / Unknown 10/15/2023 3:13 PM CDT 10/15/2023 4:25 PM CDT Narrative [facility] - 10/17/2023 4:24 PM CDT Season, race, dietary intake, and treatment affect the concentration of 05-huwmyzt-Mlsebgc D. Values may decrease during winter months and increase during summer months. Vitamin D determination is routinely performed by an immunoassay specific for 25 hydroxyvitamin D3. ??If an individual is on vitamin D2(ergocalciferol) supplementation, please specify 25 OH vitamin D2 and D3 level determination by LCMSMS test VITD23. Harrison Arpit LAB - BLOOD ORDERABL ES [facility] [employer] [place] Core Lab [address] [facility], Room [address] [address] * (ABNORMAL) Hemoglobin A1c (10/15/2023 3:13 PM CDT) Hemoglobin A1C 10.8(H) <5.7 % 10/15/2023 4:57 PM CDT RH LABORATORY Comment: Normal <5.7% Prediabetes 5.7-6.4% ?? Diabetes 6.5% or higher Note: Adopted from ADA consensus guidelines. Blood BLOOD SPECIMEN / Unknown Client Draw / Unknown 10/15/2023 3:13 PM CDT 10/15/2023 4:25 PM CDT Harrison Putnam LAB - BLOOD ORDERABL ES LABORATORY [facility] Acute Care Lab [address] Lab (1st floor, no room number) [place] [address], [facility] from Last 3 Months Advance Directives For more information, please contact: [phone] Documents on File Type Date Recorded Patient Operations Representative Expl anation Advance Directives and Living Will [...] nt/ legal decision maker Care Teams Senior Qa Engineer Relationship Specialty Start Date End Date Services, [facility] Physician [address] [place] [address] PCP - General 05/22/21 Prince Tobar MD [address] [place] [address] Cardiovascular Disease 03/26/22 Prince Tobar MD [address] [place] [address] Assigned Heart and Vascular Provider 05/30/22
--- OUTSIDE RECORDS SUMMARY | 2023-12-30 03:04 | XMS_ITS | Referral Summary ---
Author Organization [facility] Address [address] [place] [address] Care Team Providers Care Cad Operator Name Role Phone Services, [facility] Physician Primary Care Provi sadia Prince Tobar MD Unavailable Prince Tobar MD Unavailable Encounters Date Type Department Care Team Description 12/28/2023 6:08 PM CDT - 12/29/2023 12:59 AM CDT Emergency [facility] Emergency Dept [address] [place] [address] Agustin Cesar MD Anal fissure; External hemorrhoids Discharge Disposition: Assisted Facility 12/28/2023 Travel from Last 3 Months [...] daily Active cholecalciferol (VITAMIN D3) 1250 mcg (50779 units) capsule Take 1,250 mcg by mouth every 7 days on Wednesdays. 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 Last Filed Vital Signs Vital Sign Reading [...] without heart failure Atherosclerotic heart disease of [place] coronary artery without angina pectoris Body mass index (BMI) 60.0-69.9, adult (H) Chronic kidney disease, unspecified COMPREHENSIVE METABOLIC PANEL Routine 10/15/2023 3:13 PM CDT Hypertensive heart disease without heart failure Atherosclerotic heart disease of [place] coronary artery without angina pectoris Body mass index (BMI) 60.0-69.9, adult (H) Chronic kidney disease, unspecified CBC WITH PLATELETS AND DIFFERENTIAL Routine 10/15/2023 3:13 PM CDT Hypertensive heart disease without heart failure Atherosclerotic heart disease of [place] coronary artery without angina pectoris Body mass index (BMI) 60.0-69.9, adult (H) Chronic kidney disease, unspecified VITAMIN D DEFICIENCY SCREENING Routine 10/15/2023 3:13 PM CDT Hypertensive heart disease without heart failure Atherosclerotic heart disease of [place] coronary artery without angina pectoris Body mass index (BMI) 60.0-69.9, adult (H) Chronic kidney disease, unspecified HEMOGLOBIN A1C Routine 10/15/2023 3:13 PM CDT Hypertensive heart disease without heart failure Atherosclerotic heart disease of [place] coronary artery without angina pectoris Body mass [...] MD LAB - BLOOD ORD ERABLES LABORATORY [facility] Acute Care Lab [address] Lab (1st floor, no room number) [place] [address] * Adult Type and Screen (12/28/2023 6:41 PM CDT) ABO/RH(D) A POS 12/28/2023 6:28 PM CDT RH BLOOD BANK Antibody Screen Negative Negative 12/28/2023 6:28 PM CDT RH BLOOD BANK SPECIMEN EXPIRATION DATE [id number] 12/28/2023 6:28 PM CDT RH BLOOD BANK Blood STRUCTURE OF RIGHT UPPER LIMB / Unknown Venipuncture / Unknown 12/28/2023 6:41 PM CDT 12/28/2023 6:46 PM CDT Agustin Cesar MD LAB - BLOOD BAN K TEST ORDER RH BLOOD BANK [address] [facility] [place] [address] * INR (12/28/2023 6:41 PM CDT) INR 1.01 0.85 - 1.15 12/28/2023 7:00 PM CDT RH LABORATORY Blood STRUCTURE OF RIGHT UPPER LIMB / Unknown Venipuncture / Unknown 12/28/2023 6:41 PM CDT 12/28/2023 6:46 PM CDT Agustin Cesar MD LAB - BLOOD ORD ERABLES LABORATORY [facility] Acute Care Lab [address] Lab (1st floor, no room number) [address] * Partial thromboplastin time (12/28/2023 6:41 PM CDT) aPTT 28 22 - 38 Seconds 12/28/2023 7:00 PM CDT LABORATORY Blood STRUCTURE OF RIGHT UPPER LIMB / Unknown Venipuncture / Unknown 12/28/2023 6:41 PM CDT 12/28/2023 6:46 PM CDT Agustin Cesar MD LAB - BLOOD ORD ERABLES Performing Organization Address City/[facility]/ZIP Co de Phone Number [facility] Care Lab [address] Lab (1st floor, no room number) [address] * (ABNORMAL) Comprehensive metabolic panel (12/28/2023 [...] MD LAB - BLOOD ORD ERABLES LABORATORY [facility] Acute Care Lab [address] [facility] Lab (1st floor, no room number) [place] [address], [facility] * Vitamin D Deficiency (10/15/2023 3:13 PM CDT) Vitamin D, Total (25-Hydroxy) 32 20 - 50 ng/mL 10/17/2023 4:24 PM CDT [facility] Comment:optimum levels Blood BLOOD SPECIMEN / Unknown Client Draw / Unknown 10/15/2023 3:13 PM CDT 10/15/2023 4:25 PM CDT [facility] - 10/17/2023 4:24 PM CDT Season, race, dietary intake, and treatment affect the concentration of 51-aurhpls-Mrrvpeu D. Values may decrease during winter months and increase during summer months. Vitamin D determination is routinely performed by an immunoassay specific for 25 hydroxyvitamin D3. ??If an individual is on vitamin D2(ergocalciferol) supplementation, please specify 25 OH vitamin D2 and D3 level determination by LCMSMS test VITD23. Harrison Munson LAB - BLOOD ORDERABL ES LABORATORY [facility] [place] Core Lab [address] [facility], [address] [place] [address] * (ABNORMAL) Hemoglobin A1c (10/15/2023 3:13 PM CDT) Hemoglobin A1C 10.8(H) <5.7 % 10/15/2023 4:57 PM CDT LABORATORY Comment: Normal <5.7% Prediabetes 5.7-6.4% ?? Diabetes 6.5% or higher Note: Adopted from ADA consensus guidelines. Blood BLOOD SPECIMEN / Unknown Client Draw / Unknown 10/15/2023 3:13 PM CDT 10/15/2023 4:25 PM CDT Harrison Putnam LAB - BLOOD ORDERABL ES LABORATORY [facility] Acute Care Lab [address] [facility] Lab (1st floor, no room number) [place] [address] from Last 3 Months Advance Directives For more information, please contact: [phone] Documents on File Type Date Recorded Patient Sand Wheeler Expl anation Advance Directives and Living Will [...] yissel nt/ legal decision maker Care Teams Cad Operator Relationship Specialty Start Date End Date Services, [facility] Physician [address] [place] [address] [phone] PCP - General 05/22/21 Prince Tobar MD [address] [place] [address] Cardiovascular Disease 03/26/22 Prince Tobar MD [address] [place] [address] Assigned Heart and Vascular Provider 05/30/22
--- OUTSIDE RECORDS SUMMARY | 2023-12-30 03:04 | XMS_ITS | Encounter Summary ---
Author Organization [place] Address [address] [place] [address] Care Team Providers Care Med Spa Manager Name Role Phone Services, [facility] Physician Primary Care Provi sadia Prince Tobar MD Unavailable [phone] Prince Tobar MD Unavailable [phone] Reason for Referral * Consultation (Priority: 1-2 Weeks) - Pending Review Specialty Diagnoses / Procedures Referred By Contjohnny dalal Referred To Contact Colon and Rectal Surgery Diagnoses Anal fissure External hemorrhoids Reinaldo Beltran PA-C [facility] [address] [place] [address] Referral ID Status Reason Start Date Expiration Date V isits Requested Visits Authorized [id number] Pending Review 12/28/2023 12/27/2024 1 1 Question Answer Reason for Referral: Anal Fissure Special Concerns: Other My Clinical Question Is: Anal fissure, taking Apixaban Scheduling Instructions: [facility] will call you to coordinate care as prescribed your provider. If you don? t hear from a member services representative within 2 business days, please call . Comments Please be aware that coverage of these services is subject to the terms and limitations of your health insurance plan. Call member services at your health plan with any benefit or coverage questions. [facility] will call you to coordinate care as prescribed your provider. If you don? t hear from a member services representative within 2 business days, please call . 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 The bleeding you noted on [...] mouth daily cholecalciferol (VITAMIN D3) 1250 mcg (21752 units) capsule Take 1,250 mcg by mouth [...] 200 mg by mouth daily nystatin (MYCOSTATIN) 300335 UNIT/GM external powder Apply topically 2 times [...] MG tablet cholecalciferol (VITAMIN D3) 1250 mcg (65286 units) capsule clotrimazole (LOTRIMIN) 1 % external [...] 200 MG 24 hr tablet nystatin (MYCOSTATIN) 087812 UNIT/GM external powder pantoprazole (PROTONIX) 40 MG [...] POS Antibody Screen Negative SPECIMEN EXPIRATION DATE [id number] ABO/RH TYPE AND SCREEN Emergency Department Course [...] 1. Anal fissure K60.2 Adult Colorectal Surgery Copper Plater Referral 2. External hemorrhoids K64.4 Adult Colorectal Surgery Copper Plater Referral Discharge Medications: New Prescriptions HYDROCORTISONE, PERIANAL, [...] yesterday, he went to a clinic in [place], he is unsure of what was done [...] MG tablet cholecalciferol (VITAMIN D3) 1250 mcg (99269 units) capsule clotrimazole (LOTRIMIN) 1 % external [...] 200 MG 24 hr tablet nystatin (MYCOSTATIN) 366754 UNIT/GM external powder pantoprazole (PROTONIX) 40 MG [...] POS Antibody Screen Negative SPECIMEN EXPIRATION DATE [id number] ABO/RH TYPE AND SCREEN Imaging No orders to display Independent Interpretation None ED Course Medications Administered Medications - No data to display Procedures Procedures Discussion of Management Staffed with Dr. Cesar ED Course ED Course as of 12/28/231936Dec 28, 20231838 I evaluated and examined the patient 1902 Rectal exam with RN at bedside Additional Documentation None Medical Decision Making / Diagnosis [facility] Diagnoses: None MIPS None [facility] Leonid Leahy is a 63 year old [...] 1. Anal fissure K60.2 Adult Colorectal Surgery Copper Plater Referral 2. External hemorrhoids K64.4 Adult Colorectal Surgery Copper Plater Referral Discharge Medications New Prescriptions HYDROCORTISONE, PERIANAL, [...] Pt comes from assisted living facility in [place]. * Tamiko Monzon RN - 12/28/2023 6:08 PM CDT Bed: ED01 Expected date: Expected time: Means of arrival: Comments: [id number] documented in this encounter Plan of Treatment Scheduled Referrals Name Type Priority Associated Diagnoses Orde r Schedule Adult Colorectal Surgery Copper Plater Referral Referral Priority: 1-2 Weeks Anal fissure [...] CDT RH BLOOD BANK SPECIMEN EXPIRATION DATE [id number] 12/28/2023 6:28 PM CDT RH BLOOD BANK Blood STRUCTURE OF RIGHT UPPER LIMB / Unknown Venipuncture / Unknown 12/28/2023 6:41 PM CDT 12/28/2023 6:46 PM CDT Agustin Cesar MD LAB - BLOOD BAN K TEST ORDER BLOOD BANK [address] [place] [address], [facility] * (ABNORMAL) CBC with platelets and differential [...] LAB - BLOOD ORD ERABLES RH LABORATORY [facility] Acute Care Lab [address] [facility] Lab (1st floor, no room number) [place] [address], [facility] * (ABNORMAL) Comprehensive metabolic panel (12/28/2023 6:41 [...] Cesar MD LAB - BLOOD ORD ERABLES [facility] Care Lab [address] Lab (1st floor, no room number) [address] * Partial thromboplastin time (12/28/2023 6:41 PM CDT) aPTT 28 22 - 38 Seconds 12/28/2023 7:00 PM CDT RH LABORATORY Blood STRUCTURE OF RIGHT UPPER LIMB / Unknown Venipuncture / Unknown 12/28/2023 6:41 PM CDT 12/28/2023 6:46 PM CDT Agustin Cesar MD LAB - BLOOD ORD ERABRITTANY Performing Organization Address [facility]/ZIP Co de Phone Number [facility] Care Lab [address] Lab (1st floor, no room number) [place] [address] [place] [address] * INR (12/28/2023 6:41 PM CDT) INR 1.01 0.85 - 1.15 12/28/2023 7:00 PM CDT RH LABORATORY Blood STRUCTURE OF RIGHT UPPER LIMB / Unknown Venipuncture / Unknown 12/28/2023 6:41 PM CDT 12/28/2023 6:46 PM CDT Agustin Cesar MD LAB - BLOOD ORD ERABLES [facility] Acute Care Lab [address] Lab (1st floor, no room number) [place] [address], [facility] documented in this encounter Visit Diagnoses Diagnosis Anal fissure External hemorrhoids External hemorrhoids without mention of complication documented in this encounter Care Teams Med Spa Manager Relationship Specialty Start Date End Date Services, [facility] Physician [address] [place] [address] PCP - General 05/22/21 Prince Tobar MD [address] [place] [address] Cardiovascular Disease 03/26/22 Prince Tobar MD [address] [place] [address] Assigned Heart and Vascular Provider 05/30/22 documented as of this encounter
== END 2023-12-29 01:01 | disposition home or self-care (01) ==
LOC: AMB 12-30 02:45
PROVIDERS: Visit Provider Family Medicine
DX: E66.01 Morbid (severe) obesity due to excess calories (principal); K64.9 Unspecified hemorrhoids
CPT/HCPCS: A0425; A0428

== ENCOUNTER 2024-02-19 12:11 | Outpatient (CLI) | payer MEDICARE, MEDICAID, SELFPAY ==
--- OUTSIDE RECORDS SUMMARY | 2024-02-22 14:30 | XMS_ITS | CCD ---
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 STUD FRAMER-CHarrison Primary Care Provider Leona vailable Arpit ARLENParker [facility] Chronic [facility] Management U navailable Summary Purpose DataExchange Insurance Providers Payer name Policy type / Coverage type Covered green party ID Effective Begin Date Effective End Date [place] Part B [id number] Unknown Unknown Medicaid [place] Medicare Part B [id number] Unknown Unknown Family history Sister Brittany Suggs Diagnosis Age At Onset No Family Disease Entered N/A Runs in the family Diagnosis Age At Onset No Known Diseases N/A Sister Blanka Mcduffie Diagnosis Age At Onset No Family Disease Entered N/A Social History Social History Element Codes Description Effec tive Dates Tobacco history SNOMED CT: 253436786 Never smoker 01/16 Sexually Active? Unknown No [...] Single 10/07/2021 Living arrangements Unknown Intermediate 09/03/[address]: 728489124 No Alcohol Consum ption 09/02/2020 Allergies, Adverse Reactions, Alerts Substance Reaction Codes Entered Date Inactivated Date Status * NO KNOWN FOOD ALLERGIES Unknown 07/13/2023 No Inactive Date Active LISINOPRIL RxNorm: 37107 02/12/2020 No Inactive Da te Active Metformin [...] E78. 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 Other longterm (current) dr ug [...] 09/07/2023 Resolved Coronary artery disease invo lving quechan coronary [...] Fill Instructions pregabalin 100 mg capsule RxNorm: 332637 Take 1 Capsule(s) Oral QAM every morning 02/07/20 24 024 Active isosorbide mononitrate ER 60 mg tablet,extended release 24 hr RxNorm: 111455 Take 1 Tablet(s) Oral QD 02/01/20 24 025 Active aripiprazole 15 mg tablet RxNorm: 084548 Take 1/2 Tablet(s) Oral QD 02/01/20 24 025 Active torsemide 20 mg tablet RxNorm: 898042 1 TAB ORALLY DAILY (DX: EDEMA) 01/27/20 24 No Stop Date Active potassium chloride ER 20 mEq tablet,extended release(part/cryst) RxNorm: 1649647 2 TABS (40MEQ) ORALLY TWICE DAILY (DX: HYPOKALEMIA) 01/27/20 No Stop Date Active cephalexin 500 mg capsule RxNorm: 379936 Take 1 Capsule(s) Oral QID 12/17/19 24 Inactive cephalexin 500 mg capsule RxNorm: 613608 Take 1 Capsule(s) Oral QID 12/17/19 24 Inactive acetaminophen 500 mg tablet RxNorm: 232910 (MAX APAP:4GM/24HR) Take 1 Tablet(s) Oral TID as needed for pain 12/10/19 24 Active torsemide 20 mg tablet RxNorm: 188146 Take 1 Tablet(s) Oral QD 10/26/19 24 024 Inactive potassium chloride ER 20 mEq tablet,extended release RxNorm: 19800522 Take 2 Tablet(s) Oral BID 10/26/19 24 Active torsemide 20 mg tablet RxNorm: 777938 Take 1 Tablet(s) Oral QD 10/26/19 24 Inactive potassium chloride ER 20 mEq tablet,extended release RxNorm: 937262 Take 2 Tablet(s) Oral BID 10/26/19 24 Inactive Artificial Tears (PF) 0.1 %-0.3 % drops in a dropperette RxNorm: 234500 Apply 1-2 Drop(s) Both eyes BID as needed 09/28/19 24 025 Active erythromycin 5 mg/gram (0.5 %) eye ointment RxNorm: 078280 Apply 1 Application Both eyes QHS every night at bedtime Instill ~1 cm ribbon into affected eye 09/28/19 24 Inactive Artificial Tears (PF) 0.1 %-0.3 % drops in a dropperette RxNorm: 323998 Apply 1-2 Drop(s) Both eyes BID as needed 09/28/19 24 024 Inactive erythromycin 5 mg/gram (0.5 %) eye ointment RxNorm: 005983 Apply 1 Application Both eyes QHS every night at bedtime Instill ~1 cm ribbon into affected eye 09/28/19 24 Inactive acetaminophen 500 mg tablet RxNorm: 224666 (MAX APAP:4GM/24HR) Take 1 Tablet(s) Oral TID as needed for pain 09/24/19 24 024 Inactive carvedilol 25 mg tablet RxNorm: 020575 Take 1 Tablet(s) Oral QD 09/08/19 24 No Stop Date Active pregabalin 100 mg capsule RxNorm: 218907 Take 1 Capsule(s) Oral QAM every morning 09/07/19 24 024 Inactive rosuvastatin 40 mg tablet RxNorm: 996565 Take 1 Tablet(s) Oral QPM every evening 07/13/19 24 No Stop Date Active ezetimibe 10 mg tablet RxNorm: 981757 Take 1 Tablet(s) Oral QD 07/13/19 24 No Stop Date Active bisacodyl 10 mg rectal suppository RxNorm: 104662 Insert 1 Suppository Rectal QD as needed 07/13/19 24 No Stop Date Active polyethylene glycol 3350 17 gram/dose oral powder RxNorm: 113294 Take 17 Gram(s) Oral BID as needed mix in 4-8ox water 07/13/19 24 No Stop Date Active ketoconazole 2 % shampoo RxNorm: 714257 Apply 1 Application Topical UD as directed 07/13/19 24 No Stop Date Active Ozempic 1 mg/dose (4 mg/3 mL) subcutaneous pen injector RxNorm: 8964935 Inject 1 Milligram(s) Subcutaneous QW once a week 07/13/19 24 No Stop Date Active Guaifenesin AC 10 mg-100 mg/5 mL oral liquid RxNorm: 816856 Take 10 Milliliter(s) Oral Q4H every four hours as needed 07/13/19 24 No Stop Date Active ammonium lactate 12 % topical cream RxNorm: 513188 Apply 1 Application Topical BID 07/13/19 24 No Stop Date Active hydrocortisone 2.5 % topical cream RxNorm: 866618 Apply 1 Application Topical BID as needed 07/13/19 24 No Stop Date Active rosuvastatin 20 mg sprinkle capsule RxNorm: 8400248 Take 1 Capsule(s) Oral QD 07/13/19 24 No Stop Date Active Vascepa 1 gram capsule RxNorm: 4890357 Take 2 Capsule(s) Oral BID 07/13/19 24 No Stop Date Active venlafaxine ER 75 mg capsule,extended release 24 hr RxNorm: 382815 Take 3 Capsule(s) Oral QD 07/13/19 24 No Stop Date Active aripiprazole 15 mg tablet RxNorm: 055198 Take 1/2 Tablet(s) Oral QD 07/13/19 24 024 Inactive isosorbide mononitrate ER 60 mg tablet,extended release 24 hr RxNorm: 186071 Take 1 Tablet(s) Oral QD 07/13/19 24 024 Inactive Basaglar KwikPen U-100 Insulin 100 unit/mL (3 mL) subcutaneous RxNorm: 3227505 Inject 30U SubQ twice daily 07/07/19 24 024 Inactive Please dispense one month supply. Basaglar KwikPen U-100 Insulin 100 unit/mL (3 mL) subcutaneous RxNorm: 6331703 Inject 30U SubQ twice daily 07/07/19 24 024 Inactive Please dispense one month supply. pregabalin 150 mg capsule RxNorm: 180135 Take 1 Capsule(s) Oral QHS every night at bedtime 07/05/19 24 024 Inactive pregabalin 150 mg capsule RxNorm: 200642 Take 1 Capsule(s) Oral QHS every night at bedtime 07/05/19 24 024 Inactive polyethylene glycol 3350 17 gram/dose oral powder RxNorm: 841979 Take 1 Packet Oral QD as needed (1 packet = 17g) mix with 4-8oz of liquid 06/15/19 24 024 Inactive bisacodyl 10 mg rectal suppository RxNorm: 135138 Insert one suppository per rectum once daily as needed for constipation 06/15/19 24 024 Inactive bisacodyl 10 mg rectal suppository RxNorm: 538733 Insert one suppository per rectum once daily as needed for constipation 06/15/19 24 024 Inactive pregabalin 100 mg capsule RxNorm: 315721 Take 1 Capsule(s) Oral QAM every morning 04/27/20 23 024 Inactive Levemir FlexPen 100 unit/mL (3 mL) solution subcutaneous insulin pen RxNorm: 683492 Inject 30 Unit(s) Subcutaneous BID 04/27/20 23 024 Inactive rosuvastatin 40 mg tablet RxNorm: 016347 Take 1 Tablet(s) Oral QPM every evening 04/16/20 024 Inactive D/C rosuvastatin 20mg venlafaxine ER 75 mg capsule,extended release 24 hr RxNorm: 281975 Take 3 Capsule(s) Oral QD 04/14/20 023 Inactive pregabalin 100 mg capsule RxNorm: 854834 Take 1 Capsule(s) Oral QAM every morning [...] meter clotrimazole 1 % topical cream RxNorm: 572660 Take apply topically to abdominal folds twice daily for 14 days 03/12/20 024 Inactive Ozempic 1 mg/dose (4 mg/3 mL) subcutaneous pen injector RxNorm: 0544993 Inject 1 Milligram(s) Subcutaneous QW once a week 03/11/20 023 Inactive rosuvastatin 20 mg tablet RxNorm: 032427 Take 1 Tablet(s) Oral QD 02/26/20 23 023 Inactive d/c pravastatin 80mg Ozempic 1 mg/dose (4 mg/3 mL) subcutaneous pen injector RxNorm: 1745675 Inject 1 Milligram(s) Subcutaneous QW once a week 02/20/20 23 023 Inactive pregabalin 150 mg capsule RxNorm: 080507 Take 1 Capsule(s) Oral HS at bed time 02/19/20 23 023 Inactive pregabalin 100 mg capsule RxNorm: 399032 Take 1 Capsule(s) Oral QAM every morning 02/18/20 23 023 Inactive venlafaxine ER 75 mg capsule,extended release 24 hr RxNorm: 157963 Take 3 Capsule(s) Oral QD 02/04/20 23 023 Inactive FreeStyle Chema 2 Sensor kit RxNorm: use as directed 02/04/20 23 023 Inactive FreeStyle Chema 2 Sensor kit RxNorm: use as directed 02/04/20 23 024 Inactive fluconazole 150 mg tablet RxNorm: 678550 Take 1 Tablet(s) Oral on day 3 and on day 6 02/03/20 024 Inactive chlorthalidone 25 mg tablet RxNorm: 551621 Take 1 Tablet(s) Oral QAM every morning 02/03/20 No Stop Date Active venlafaxine ER 150 mg capsule,extended release 24 hr RxNorm: 375287 Take 1 Capsule(s) Oral QD 02/03/20 23 023 Inactive acetaminophen 500 mg tablet RxNorm: 857121 1 TABLET ORALLY 3 TIMES DAILY (MAX APAP:4GM/24HR) 12/15/19 23 023 Inactive clotrimazole 1 % topical cream RxNorm: 714846 apply 1g topically to top of feet and in between toes BID 12/09/19 23 023 Inactive potassium chloride ER 20 mEq tablet,extended release RxNorm: 639988 Take 1 Tablet(s) Oral BID 12/09/19 23 024 Inactive d/c 20mEq once daily (sent from hospital) nystatin 100,000 unit/gram topical powder RxNorm: 549308 APPLY TO AFFECTED AREAS TOPICALLY 2 TIMES DAILY 11/21/19 23 024 Inactive Nystop 100,000 unit/gram topical powder RxNorm: 457852 Apply to abd folds, under breasts and L side of groin Topical BID x 14 days, then BID PRN 11/20/19 23 023 Inactive dx: yeast dermatitis Bengay Ultra Strength 4 %-30 %-10 % topical cream RxNorm: 550261 Apply 1 Gram(s) Topical QID PRN to feet and legs for neuropathic pain 11/11/19 23 024 Inactive clotrimazole 1 % topical cream RxNorm: 047633 Apply 1/2 Gram(s) Topical BID Apply to affected areas of groin, periarea, and abdominal topically 2 times daily 11/10/19 023 Inactive hydrocortisone 2.5 % topical cream RxNorm: 857927 Apply 1/2 Gram(s) Topical BID as needed 11/10/19 024 Inactive Humulin R U-500 (Concentrated) Insulin 500 unit/mL subcutaneous soln RxNorm: 434002 Inject 100 Unit(s) Subcutaneous TID 10/07/19 024 Inactive Levemir FlexPen 100 unit/mL (3 mL) solution subcutaneous insulin pen RxNorm: 435725 Inject 30 Unit(s) Subcutaneous BID 10/07/19 023 Inactive Ozempic 0.25 mg or 0.5 mg (2 mg/3 mL) subcutaneous pen injector RxNorm: 0927816 Inject 1/2 Milligram(s) Subcutaneous QW once a week 10/07/19 024 Inactive aripiprazole 15 mg tablet RxNorm: 691148 1/2 TAB (7.5MG) ORALLY DAILY (DX:MAJOR DEPRESSIVE DISORDER) 09/23/19 023 Inactive Lancets,Thin 28 gauge RxNorm: Use 1 as directed QID 09/15/19 23 024 Inactive Accu-Chek Guide test strips RxNorm: Use 1 Test Strip QID 09/15/19 023 Inactive ok to substitute with any covered alternative test strip torsemide 20 mg tablet RxNorm: 201019 Take 1 Tablet(s) Oral BID 09/09/19 024 Inactive d/c once daily dosing carvedilol 25 mg tablet RxNorm: 712986 Take 1 Tablet(s) Oral QD 08/25/19 024 Inactive pregabalin 150 mg capsule RxNorm: 932354 1 Capsule(s) Oral HS at bed time 08/18/19 023 Inactive pregabalin 100 mg capsule RxNorm: 448853 1 Capsule(s) Oral QAM every morning 08/18/19 023 Inactive carvedilol 25 mg tablet RxNorm: 812857 1 Tablet(s) Oral QD 07/28/19 23 023 Inactive lisinopril 20 mg tablet RxNorm: 697104 Give 1 Tablet(s) Oral QD 07/28/19 23 023 Inactive Lyrica 150 mg capsule RxNorm: 265077 Take 1 Capsule(s) Oral QHS every night at bedtime 07/19/19 23 023 Inactive d/c 100mg dose Diflucan 150 mg tablet RxNorm: 888057 Take 1 Tablet(s) Oral QD repeat on day 3 and 6 07/19/19 23 023 Inactive pregabalin 100 mg capsule RxNorm: 156576 Take 1 Capsule(s) Oral QAM every morning 07/19/19 023 Inactive gatifloxacin 0.5 % eye drops RxNorm: 771212 Instill 1 Drop(s) as directed TID Instill 1 drop in to affected eye(s) starting 1 day prior to surgery and continue until gone (do not exceed 4 weeks). 07/13/19 23 023 Inactive carvedilol 25 mg tablet RxNorm: 491186 2 Tablet(s) Oral BID 07/13/19 23 023 Inactive Humulin R Regular U-100 Insulin 100 unit/mL injection solution RxNorm: 967715 85 Unit(s) Injection TID 07/13/19 23 023 Inactive ketorolac 0.5 % eye drops RxNorm: 828428 Instill 1 Drop(s) as directed QID Instill 1 drop into affected eye(s) 4 times daily starting 1 day prior to surgery and continue until gone (do not exceed 4 weeks). 07/13/19 23 023 Inactive Diflucan 150 mg tablet RxNorm: 431862 Take 1 Tablet(s) Oral QD repeat on day 3 and 6 06/30/19 23 023 Inactive Accu-Chek Guide test strips RxNorm: Use 1 Test Strip QID Use 1 test strip to monitor blood glucose 4 times daily and as needed. Dx:E11.42. 06/23/19 23 023 Inactive ok to substitute with any covered alternative test strip dextromethorphan-gu aifenesin 10 mg-100 mg/5 mL oral liquid RxNorm: 863725 Take 10 Milliliter(s) Oral every 4 hours as needed for cough 06/19/19 23 023 Inactive dextromethorphan-gu aifenesin 10 mg-100 mg/5 mL oral liquid RxNorm: 793232 Take 10 Milliliter(s) Oral every 4 hours as needed for cough 06/19/19 023 Inactive Lyrica 150 mg capsule RxNorm: 097339 Take 1 Capsule(s) Oral QHS every night at bedtime 06/18/19 023 Inactive d/c 100mg dose aripiprazole 15 mg tablet RxNorm: 702573 /2 TAB (7.5MG) ORALLY DAILY (DX:MAJOR DEPRESSIVE DISORDER) 06/05/19 023 Inactive pregabalin 100 mg capsule RxNorm: 836037 1 Capsule(s) Oral QAM every morning 06/02/19 023 Inactive Banophen 50 mg capsule RxNorm: 8293730 Take 1 Capsule(s) Oral Q6H every 6 hours as needed 05/19/19 23 No Stop Date Active Novolog Flexpen U-100 Insulin aspart 100 unit/mL (3 mL) subcutaneous RxNorm: 1453241 Inject 10 Unit(s) Subcutaneous QHS every night at bedtime with nighttime snack 04/08/20 22 022 Inactive Novolog Flexpen U-100 Insulin aspart 100 unit/mL (3 mL) subcutaneous RxNorm: 6494755 Inject 42 Unit(s) Subcutaneous TID in addition to sliding scale 04/08/20 022 Inactive d/c 36u albuterol sulfate HFA 90 mcg/actuation aerosol inhaler RxNorm: 4273302 Take 2 Puff(s) Inhalation Q4H every four hours as needed as needed for SOB, cough, or wheezing 04/07/20 030 Active Banophen 50 mg capsule RxNorm: 3974141 Take 1 Capsule(s) Oral Q6H every 6 hours as needed 04/06/20 023 Inactive diphenhydramine 50 mg tablet RxNorm: 0756288 Take 1 Tablet(s) Oral Q6H every 6 hours as needed 04/06/20 22 022 Inactive diphenhydramine 50 mg tablet RxNorm: 6535846 1 Tablet(s) Oral Q6H every 6 hours as needed 04/06/20 22 022 Inactive Abilify 15 mg tablet RxNorm: 130006 1/2 Tablet(s) Oral QD 03/10/20 22 023 Inactive Shingrix (PF) 50 mcg/0.5 mL intramuscular suspension, kit RxNorm: 4423602 Administer 1/2 Milliliter(s) Intramuscular QD one time shingrix step 2 ( step 1 given 11/04/21) WITH needle - Nursing please administer upon arrival and once administered post a bridge message with date of administration, machine lacer, expiration date, and lot# so we can update [facility] 02/18/20 22 022 Inactive dispense with needle Shingrix (PF) 50 mcg/0.5 mL intramuscular suspension, kit RxNorm: 9667864 Administer 1/2 Milliliter(s) Intramuscular QD one time shingrix step 2 ( step 1 given 11/04/21) WITH needle - Nursing please administer upon arrival and once administered post a bridge message with date of administration, machine lacer, expiration date, and lot# so we can update [facility] 02/18/20 22 022 Inactive dispense with needle polyethylene glycol 3350 17 gram/dose oral powder RxNorm: 577383 Take 17=1 capful Gram(s) Oral QD mix with 4-8oz of liquid 01/08/20 22 023 Inactive take this in addition to BID prn order Lyrica 100 mg capsule RxNorm: 007641 Take 1 Capsule(s) Oral QAM every morning 01/08/20 22 022 Inactive d/c 50mg dose acetaminophen 500 mg tablet RxNorm: 649964 Take 1 Tablet(s) Oral TID 01/08/20 22 022 Inactive d/c PRN order Lyrica 150 mg capsule RxNorm: 466024 Take 1 Capsule(s) Oral QHS every night at bedtime 01/08/20 22 023 Inactive d/c 100mg dose Abilify 5 mg tablet RxNorm: 126050 Take 1 Tablet(s) Oral QD take 1 tab po QD #30 refill 5 dx: MDD 12/12/19 22 022 Inactive Abilify 5 mg tablet RxNorm: 901385 Take 1 Tablet(s) Oral QD take 1 tab po QD #30 refill 5 dx: MDD 12/12/19 22 022 Inactive Novolog Flexpen U-100 Insulin aspart 100 unit/mL (3 mL) subcutaneous RxNorm: 3161591 Inject 42 Unit(s) Subcutaneous TID in addition to sliding scale 12/10/19 22 022 Inactive d/c 36u chlorthalidone 25 mg tablet RxNorm: 432948 Take 1 Tablet(s) Oral QAM every morning 12/10/19 22 023 Inactive pregabalin 50 mg capsule RxNorm: 923668 Take 1 Capsule(s) Oral QAM every morning 11/12/19 22 022 Inactive tetanus-diphtheria toxoids-Td 2 Lf unit-2 Lf unit/0.5 mL IM suspension RxNorm: 139 Take 0.5 Miscellaneous Intramuscular 11/12/19 22 022 Inactive need tdap - nursing to administer upon arrival pregabalin 50 mg capsule RxNorm: 455230 Take 1 Capsule(s) Oral QAM every morning 10/16/19 22 022 Inactive pregabalin 50 mg capsule RxNorm: 571334 Take 1 Capsule(s) Oral QAM every morning 10/16/19 22 022 Inactive pregabalin 50 mg capsule RxNorm: 150296 1 Capsule(s) Oral QAM every morning 10/15/19 22 022 Inactive Shingrix (PF) 50 mcg/0.5 mL intramuscular suspension, kit RxNorm: 0659753 Administer 1/2 Milliliter(s) Intramuscular one time Nursing please administer upon arrival and once administered post a bridge message with date of administration, machine lacer, expiration date, and lot# so we can update [facility]. 10/09/19 22 022 Inactive shingrix step 1 Shingrix (PF) 50 mcg/0.5 mL intramuscular suspension, kit RxNorm: 5409695 Administer 1/2 Milliliter(s) Intramuscular one time Nursing please administer upon arrival and once administered post a bridge message with date of administration, machine lacer, expiration date, and lot# so we can update [facility]. 10/09/19 22 Inactive shingrix step 1 cholecalciferol (vitamin D3) 1,250 mcg (50,000 unit) capsule RxNorm: 441396 Take 1 Capsule(s) Oral QW once a [...] aspart 100 unit/mL (3 mL) subcutaneous RxNorm: 2668367 Inject 10 Unit(s) Subcutaneous QHS every night at bedtime with nighttime snack 10/08/19 22 Inactive Shingrix (PF) 50 mcg/0.5 mL intramuscular suspension, kit RxNorm: 4570885 ADMINISTER 2-DOSE SERIES PER CDC GUIDELINES 10/08/19 22 022 Active Shingrix (PF) 50 mcg/0.5 mL intramuscular suspension, kit RxNorm: 6752759 ADMINISTER 2-DOSE SERIES PER CDC GUIDELINES 10/08/19 22 022 Inactive Novolog Flexpen U-100 Insulin aspart 100 unit/mL (3 mL) subcutaneous RxNorm: 9344425 Inject 36 Unit(s) Subcutaneous TID in addition to sliding scale 10/08/19 22 Inactive Novofine Autocover 30 gauge x 1/3 needle RxNorm: Use 1 Miscellaneous UD as directed Use 1 needle as directed to administer insulin 5 times a day Dx:E11.42. 10/03/19 22 Inactive ok to substitute with any covered alternative pen needle benzoyl peroxide 10 % topical cleanser RxNorm: 285333 Apply 1 Application Topical QD apply to face, wash rinse and dry once daily (may change to QOD if drying) 08/19/19 22 022 Inactive (%covered by insurance) #60ml refill 11 dx: acne benzoyl peroxide 10 % topical cleanser RxNorm: 084141 Apply 1 Application Topical QD apply to face, wash rinse and dry once daily (may change to QOD if drying) 08/19/19 22 022 Inactive (%covered by insurance) #60ml refill 11 dx: acne benzoyl peroxide 10 % topical cleanser RxNorm: 934961 Apply 1 Application Topical QD apply to face, wash rinse and dry once daily (may change to QOD if drying) 08/19/19 22 022 Inactive (%covered by insurance) #60ml refill 11 dx: acne Lyrica 50 mg capsule RxNorm: 279158 Take 1 Capsule(s) Oral QAM every morning Take 1 capsule by mouth once daily 08/19/19 22 022 Inactive benzoyl peroxide 10 % topical cleanser RxNorm: 041542 Apply 1 Application Topical QD apply to face, wash rinse and dry once daily (may change to QOD if drying) 08/19/19 22 022 Inactive (%covered by insurance) #60ml refill 11 dx: acne Lyrica 100 mg capsule RxNorm: 259381 Take 1 Capsule(s) Oral QHS every night at bedtime Take 1 capsule by mouth once daily at bedtime 08/19/19 22 022 Inactive Lyrica 100 mg capsule RxNorm: 601785 Take 1 Capsule(s) Oral QHS every night at bedtime Take 1 capsule by mouth once daily at bedtime 08/16/19 22 Inactive Lyrica 50 mg capsule RxNorm: 944647 Take 1 Capsule(s) Oral QAM every morning Take 1 capsule by mouth once daily 08/16/19 22 022 Inactive Levemir FlexTouch U-100 Insulin 100 unit/mL (3 mL) subcutaneous pen RxNorm: 457529 Inject 86 Unit(s) Subcutaneous BID 08/05/19 22 022 Inactive d/c 83units BID Lyrica 100 mg capsule RxNorm: 558667 Take 1 Capsule(s) Oral QHS every night at bedtime Take 1 capsule by mouth once daily at bedtime 07/14/19 22 022 Inactive Lyrica 50 mg capsule RxNorm: 416561 Take 1 Capsule(s) Oral QAM every morning Take 1 capsule by mouth once daily 07/14/19 22 Inactive Levemir FlexTouch U-100 Insulin 100 unit/mL (3 mL) subcutaneous pen RxNorm: 867389 Inject 83 Unit(s) Subcutaneous BID 07/08/19 22 [...] test strip hydralazine 50 mg tablet RxNorm: 906232 Take 1 Tablet(s) Oral QID 05/05/20 Inactive venlafaxine ER 225 mg tablet,extended release 24 hr RxNorm: 486004 Take 1 Tablet(s) Oral QD 05/05/20 Inactive venlafaxine ER 225 mg tablet,extended release 24 hr RxNorm: 561284 Take 1 Tablet(s) Oral QD 05/05/20 022 Inactive isosorbide mononitrate ER 30 mg tablet,extended release 24 hr RxNorm: 617083 Take 1 Tablet(s) Oral QD 05/05/20 024 Inactive hydralazine 50 mg tablet RxNorm: 674677 Take 1 Tablet(s) Oral QID 05/05/20 Inactive aspirin 81 mg tablet,delayed release RxNorm: 473498 Take 1 Tablet(s) Oral QD 03/31/20 022 Inactive Vitamin D2 1,250 mcg (50,000 unit) capsule RxNorm: 8726175 Take 1 Capsule(s) Oral QW once a week x 12 weeks 03/31/20 Inactive Vitamin D2 1,250 mcg (50,000 unit) capsule RxNorm: 6351310 Take 1 Capsule(s) Oral QW once a week 03/31/20 Inactive Zetia 10 mg tablet RxNorm: 824209 Take 1 Tablet(s) Oral QD 03/31/20 024 Inactive Zetia 10 mg tablet RxNorm: 576517 Take 1 Tablet(s) Oral QD 03/31/20 021 Inactive hydralazine 25 mg tablet RxNorm: 647180 Take 1 Tablet(s) Oral QID 03/31/20 021 Inactive hydralazine 25 mg tablet RxNorm: 386124 Take 1 Tablet(s) Oral QID 03/31/20 021 Inactive hydralazine 10 mg tablet RxNorm: 101388 Take 1 Tablet(s) Oral QID 03/03/20 021 Inactive cephalexin 500 mg tablet RxNorm: 402787 Take 1 Tablet(s) Oral QID 02/27/20 021 Inactive cephalexin 500 mg tablet RxNorm: 432511 Take 1 Tablet(s) Oral QID 02/27/20 021 Inactive lisinopril 40 mg tablet RxNorm: 077941 Take 1 Tablet(s) Oral QD 02/11/20 023 Inactive Eliquis 5 mg tablet RxNorm: 3465251 Take 1 Tablet(s) Oral BID 01/05/20 21 022 Inactive Eliquis 5 mg tablet RxNorm: 5151455 Take 2 Tablet(s) Oral QD 01/01/20 021 Inactive Lyrica 50 mg capsule RxNorm: 606036 Take 1 Capsule(s) Oral QAM every morning 12/24/19 021 Inactive Lyrica 100 mg capsule RxNorm: 591180 Take 1 Capsule(s) Oral QHS every night at bedtime 12/24/19 021 Inactive clotrimazole 1 % topical cream RxNorm: 995819 Apply to right foot and toes Topical BID 12/04/19 21 023 Inactive metoprolol succinate ER 200 mg tablet,extended release 24 hr RxNorm: 062453 Take 1 Tablet(s) Oral QD 12/04/19 023 Inactive ciprofloxacin 500 mg tablet RxNorm: 543261 Take 1 Tablet(s) Oral QD 11/30/19 021 Inactive DX ofloxacin otic drops Accu-Chek Guide test strips RxNorm: USE 1 TO CHECK GLUCOSE 4 TIMES DAILY AND NEEDED 11/15/19 21 023 Inactive Blood Glucose Test strips RxNorm: Use 1 Test Strip QID at PRN 11/05/19 21 023 Inactive E11.42 lisinopril 30 mg tablet RxNorm: 447358 Take 1 Tablet(s) Oral QD 10/30/19 21 021 Inactive lisinopril 20 mg tablet RxNorm: 125003 Take 1 Tablet(s) Oral QD 10/23/19 021 Inactive lisinopril 20 mg tablet RxNorm: 663593 Take 1 Tablet(s) Oral QD 10/23/19 21 021 Inactive lisinopril 10 mg tablet RxNorm: 585139 Take 1 Tablet(s) Oral QD 10/02/19 21 021 Inactive icosapent ethyl 1 gram capsule RxNorm: 6321225 Take 2 Capsule(s) (2 gm) Oral BID with meals 09/12/19 21 024 Inactive Okay to dispense one 2gm tab if you have that available. icosapent ethyl 1 gram capsule RxNorm: 3676739 Take 2 Capsule(s) Oral BID 09/12/19 21 021 Inactive Okay to dispense one 2gm tab if you have that available. amlodipine 10 mg tablet RxNorm: 355597 Take 1 Tablet(s) Oral QD 09/04/19 022 Inactive aspirin 81 mg tablet,delayed release RxNorm: 045194 Take 1 Tablet(s) Oral QD 09/04/19 21 021 Inactive Levemir FlexTouch U-100 Insulin 100 unit/mL (3 mL) subcutaneous pen RxNorm: 254220 Inject 150 Unit(s) Subcutaneous BID 09/04/19 21 022 Inactive venlafaxine ER 150 mg tablet,extended release 24 hr RxNorm: 635997 Take 1 Tablet(s) Oral QD 09/04/19 21 021 Inactive clotrimazole-betame thasone 1 %-0.05 % topical cream RxNorm: 927057 Apply to rash on red area on left abdomen/chest Topical BID 08/10/19 21 021 Inactive amlodipine 5 mg tablet RxNorm: 384881 Take 1 Tablet(s) Oral QD 07/31/19 21 021 Inactive cephalexin 500 mg tablet RxNorm: 889604 Take 1 Tablet(s) Oral BID BID - Twice Daily 07/31/19 21 021 Inactive Start 08/01/20 pantoprazole 40 mg tablet,delayed release RxNorm: 466612 Take 1 Tablet(s) Oral QAM every morning 07/08/19 022 Inactive senna 8.6 mg tablet RxNorm: 789966 Take 1 Tablet(s) Oral QD 07/08/19 21 022 Inactive carbamazepine 200 mg tablet RxNorm: 523884 Take 1 Tablet(s) Oral BID 07/08/19 21 022 Inactive clopidogrel 75 mg tablet RxNorm: 797317 Take 1 Tablet(s) Oral QD 07/08/19 21 021 Inactive Blood Glucose Test strips RxNorm: Use 1 Test Strip QID at PRN 07/08/19 Inactive E11.42 Novolog Flexpen U-100 Insulin aspart 100 unit/mL (3 mL) subcutaneous RxNorm: 1595622 Administer per sliding scale Milliliter(s) Subcutaneous TID 151-200: 10 u; 201-250: 20 u; 251-300: 30 u; 301-350: 40 u; 351-400: 50 u. 07/08/19 022 Inactive lisinopril 5 mg tablet RxNorm: 365520 Take 1 Tablet(s) Oral QD 07/08/19 021 Inactive Novolog Flexpen U-100 Insulin aspart 100 unit/mL (3 mL) subcutaneous RxNorm: 5325744 Inject 85 Unit(s) Subcutaneous TID 07/08/19 022 Inactive pravastatin 80 mg tablet RxNorm: 212573 Take 1 Tablet(s) Oral QHS every night at bedtime 07/08/19 023 Inactive clotrimazole 1 % topical cream RxNorm: 999032 Apply to bilateral groin areas Topical BID 07/08/19 21 022 Inactive metoprolol succinate ER 200 mg tablet,extended release 24 hr RxNorm: 816017 Take 1 Tablet(s) Oral QD 07/08/19 21 021 Inactive Vitamin D3 25 mcg (1,000 unit) tablet RxNorm: 146521 Take 1 Tablet(s) Oral QD 07/08/19 21 021 Inactive isosorbide dinitrate 30 mg tablet RxNorm: 344694 Take 1 Tablet(s) Oral QD 07/08/19 21 021 Inactive Levemir FlexTouch U-100 Insulin 100 unit/mL (3 mL) subcutaneous pen RxNorm: 704839 Inject 140 Unit(s) Subcutaneous BID 07/08/19 21 021 Inactive torsemide 20 mg tablet RxNorm: 326349 Take 1 Tablet(s) Oral QD 07/08/19 21 023 Inactive venlafaxine 75 mg tablet RxNorm: 775017 Take 1 Tablet(s) Oral QD 07/08/19 021 Inactive acetaminophen 500 mg tablet RxNorm: 321197 Take 1 Tablet(s) Oral TID as needed for headache 06/18/19 021 Inactive acetaminophen 500 mg tablet RxNorm: 229030 Take 1 Tablet(s) Oral TID as needed for headache 06/18/19 021 Inactive Lyrica 100 mg capsule RxNorm: 531332 Take 1 Capsule(s) Oral QHS every night at bedtime 06/11/19 21 021 Inactive Lyrica 50 mg capsule RxNorm: 457782 Take 1 Capsule(s) Oral QAM every morning 06/10/19 021 Inactive hydrocortisone 2.5 % topical cream RxNorm: 013667 Apply to bilateral groin creases Topical BID 05/15/20 20 021 Inactive clotrimazole 1 % topical cream RxNorm: 011311 Apply to bilateral groin areas Topical BID 05/15/20 20 021 Inactive Lyrica 50 mg capsule RxNorm: 525836 Take 1 Capsule(s) Oral QAM every morning 05/14/20 20 020 Inactive Lyrica 100 mg capsule RxNorm: 314841 Take 1 Capsule(s) Oral QHS every night [...] Inactive Nystop 100,000 unit/gram topical powder RxNorm: 762907 Apply to abd folds, under breasts and L side of groin Topical BID x 14 days, then BID PRN 04/08/20 20 Inactive dx: yeast dermatitis Lyrica 100 mg capsule RxNorm: 886921 Take 1 Capsule(s) Oral QHS every night at bedtime 03/13/20 20 Inactive Lyrica 50 mg capsule RxNorm: 469759 Take 1 Capsule(s) Oral QAM every morning 03/13/20 20 Inactive ketoconazole 2 % shampoo RxNorm: 507735 Apply Topical two times a week with showers 03/11/20 20 Inactive cholecalciferol (vitamin D3) 50 mcg (2,000 unit) tablet RxNorm: 939977 Take 1 Tablet(s) Oral QD 03/11/20 20 021 Inactive Zetia 10 mg tablet RxNorm: 999234 Take 1 Tablet(s) Oral QD 03/07/20 20 021 Inactive Zetia 10 mg tablet RxNorm: 448711 Take 1 Tablet(s) Oral QD 03/07/20 20 Inactive Lyrica 50 mg capsule RxNorm: 752762 Take 1 Capsule(s) Oral QAM every morning 02/15/20 20 Inactive Lyrica 100 mg capsule RxNorm: 805415 Take 1 Capsule(s) Oral QHS every night at bedtime 02/15/20 20 Inactive Lyrica 100 mg capsule RxNorm: 540748 Take 1 Capsule(s) Oral QHS every night at bedtime 02/15/20 20 Inactive Lyrica 50 mg capsule RxNorm: 911129 Take 1 Capsule(s) Oral QAM every morning 02/15/20 20 020 Inactive metoprolol succinate ER 200 mg tablet,extended release 24 hr RxNorm: 264168 Take 1 Tablet(s) Oral QD 08/12/19 23 Active loperamide 2 mg capsule RxNorm: 055139 Take 1 Capsule(s) Oral QID as needed 06/12/19 22 Active hydralazine 50 mg tablet RxNorm: 193393 Take 1 Tablet(s) Oral QID 08/12/19 23 Active venlafaxine ER 75 mg capsule,extended release 24 hr RxNorm: 404931 Take 3 Capsule(s) Oral QD 06/12/19 22 023 Inactive polyethylene glycol 3350 17 gram/dose oral powder RxNorm: 554619 Take 17=1 capful Gram(s) Oral BID as needed mix with 4-8oz of liquid 06/12/19 22 024 Inactive icosapent ethyl 1 gram capsule RxNorm: 9677923 Take 2 Capsule(s) (2 gm) Oral BID with meals 10/07/19 23 023 Inactive Okay to dispense one 2gm tab if you have that available. Levemir FlexTouch U-100 Insulin 100 unit/mL (3 mL) subcutaneous pen RxNorm: 762131 Inject 80 Unit(s) Subcutaneous BID 07/14/19 23 023 Inactive Novolog Flexpen U-100 Insulin aspart 100 unit/mL (3 mL) subcutaneous RxNorm: 2946024 Insert 30 Unit(s) Subcutaneous TID with meals [...] Item Code Result Date S ervice Location [facility] 10432-9 02/08/2024 Unknown PHQ9 PHQ9 51579-0 4 02/08/2024 Unknown Procedures Procedure Codes Date SYS BP LESS 140 CPT-4: G8752 02/08/2024 CUI BP LESS 90 CPT-4: G8754 02/08/2024 DEBRIDE NAIL 1-5 CPT-4: 57541 02/08/2024 PT INELIG NEG SCRN DEPRES SNOMED CT: 428 [id number] CPT-4: G8510 02/08/2024 Vital Signs Date Vital 02/08/2024 Blood Pressure 1: 124/78 Code: 8480-6 BMI: NaN Code: 30776-3 Heart Rate 1: 72 bpm Code: 8867-4 [...] Advance care planning[ICD10: Z71.89] Harrison Munson [facility] [place] [address] [address] [address] [address] CPT-4: G0439 02/08/2024 (34869) Home or Residence Visit Est Pt - [...] ] Diagnosis: [ICD9: ] Harrison Munson [facility] [place] [address] [place] [address] CPT-4: 14664 02/08/2024 Plan of Care Planned Activity Notes Codes Status Date Patient Education: Patient Medication Summary Completed 02/08/2024 Patient Education: Addiction and Substance Abuse Completed 02/08/2024 Patient Education: Influenza Complet ed 02/08/2024 Patient Education: Exercise and Fitness Completed 02/08/2024 Appointment: Brian Munson WPtel: [address] [place], [place] [id number] [place] F/U 01/11/2024 Appointment: Sandra Clark WPtel: [address] [place], [place] [id number] Telehealth Psych Follow Up 12/09 Appointment: Tapan Shirley WPtel: [address] [place], [place] [id number] [place] TCM 10/26/2022 Referral: [facility] WPtel: [address], [address] [id number] [place] Referral Records Received 09/21/2022 Appointment: Tapan Shirley WPtel: [address] [facility] [address] [id number] [place] F/U 08/11/2022 Appointment: Tapan Shirley WPtel: [address] [facility] [address] [id number] [place] F/U 07/14/2022 Appointment: Tapan Shirley WPtel: [address] [facility] [address] [id number] [place] F/U 02/10/2022 Referral: [facility] WPtel: [address] [facility] [address] [id number] [place] Referral Completed 05/28/2021 Referral: General Cardiology [...] [facility] to have closer nursing attention.??Sister Jyotsna involved in his care cell# [phone]??Guardian: Giulia (tapan met in person 09/01/21), now has Lexii (same group as giulia)AWV 9.??Lab Schedule: /September*September (CBC with diff, CMP, A1c)??March: (CBC, CMP, A1c, Lipids, VitD)10.15.2023: CBC, CMP Na 139, K2.6L, creat 1.45H, eGFR 54L, BG 513H, A1c, VitD 32.??6: BMP Na 140, K3.7, BG 397 H. BUN 24H, Creat 1.09, eGFR 76L.??6: ER labs CBC,??CMP K 3.9 Creat 1.0 eGFR 84 BG 395H6.: CT scan umbilical hernia and pulmonary nodule (solid 4 mm LLL and LLL calcified granuloma) will need CT scan w/o contrast in 1 year to monitor growth (due ).??Bobbi note from 11.08.2023 at [facility] (follow up 6 months)Colon & Rectal Surgery visit scheduled for 03/08/24 with Matilde Pérez PA-C.?? 02/08/2024 Candidal intertrigo Managed with Nystatin powder [...] Living in basement of . Can use [employer] door an ramp to get to driveway. PT order placed last visit although no services will come to his home unfortunately. Will follow up with nursing to see if he would have rides to outpatient PT.?? Hypercoagulable state Monitor for S&S of thrombus formation.?? NO S&S present today.?? Continue Aspirin and Eliquis as ordered.?? Seizure [...] 84.?? High amounts of insulin prescribed by head animal keeper. Follows with them every 6 months.?? Next [...] weight loss, diabetes management, overall health and well-being.?? Constipation by delayed colonic transit Denies recent concerns with bowel movements. Daily BMs reported.?? Colon & Rectal Surgery visit scheduled for 03/08/24 with Matilde Pérez PA-C. for hemorrhoids.?? Continue miralax and senna daily along with PRN suppositories when needed.?? Monitor for worsening constipation or loose stools and adjust treatment plan accordingly. Staff to notify [facility] if they see signs of an??ileus or bowel obstruction. [facility] AWV completed today 02.08.2024.?? Preventive health counseling reviewed including: regular physical exercise, healthy diet/nutrition, vision screening, hearing screening, preventive dental visits.?? Nonsmoker.?? [...] .?? High amounts of insulin prescribed by head animal keeper and continues to have high BG. High BG can be leading to high lipid panel results as well.?? [...] chloride.?? Did place referral for in home long-term for woulds on lower left calf although [...] open areas of skin.?? Could not get long-term to come to his home unfortunately.?? Continue [...] Nursing staff unable to get in home long-term to come to the facility. Support at [...] long-term current use of insulin [facility]: 11.26.2023. Torie Martines MD. Alex Bear. BG QID 240-320 Currently Basaglar 30 units BID and regular insulin 100 units TID and Ozempic 1 mg weekly. PLAN: A1c now and BMP/Lipid/TSH before next appt. Stop Ozempic. Diabets educator recommended to reach out to staff. Increase Basaglar to 40 units BID and continue Humulin R 100 units with each meal. F/U six moths (). Continue close follow up with head animal keeper.?? Last eye exam documented to be . Will recommend he see an eye doctor again for an exam. Looks like he has gone to [facility] in the past.?? Education is provided on healthy dietary intake, water intake, physical activity/movement after each meal/snack.?? Learning disability Unknown severity.?? Today reports finished highschool - 12th grade.?? Low SLUMS score could be affected by this.?? Able to answer questions about his health.?? Living in supportive environment.??. 02/08/2024
--- OUTSIDE RECORDS SUMMARY | 2024-02-22 14:30 | XMS_ITS | CCD ---
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 Artistic Director Name Role Phone Sebastian CIVIL ENGINEER[employer] INTERN-[facility] Primary Care Provider Leona vailable Arpit [employer] INTERN-C, [facility] Chronic Care Management U navailable Summary Purpose DataExchange Insurance Providers Payer name Policy type / Coverage type Covered green party ID Effective Begin Date Effective End Date [place] Part B [id number] Unknown Unknown [place] B [id number] Unknown Unknown Family history Sister Brittany Suggs [...] Fpc 09/03/[address]: 2848369 Non-Smoker / No History of Smoking 09/02/[address]: [id number] No Alcohol Consum ption 09/02/2020 Allergies, Adverse Reactions, Alerts Substance Reaction Codes Entered Date Inactivated Date Status * NO KNOWN FOOD ALLERGIES Unknown 07/13/2023 No Inactive Date Active LISINOPRIL RxNorm: 12279 02/12/2020 No Inactive Da te Active Metformin [...] E78. 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 [...] 09/07/2023 Resolved Coronary artery disease invo lving [place] coronary artery of [place] heart, angina presence unspecified ICD-10: I25.10 [...] 60 mg tablet,extended release 24 hr RxNorm: 055585 Take 1 Tablet(s) Oral QD 02/01/20 24 025 Active aripiprazole 15 mg tablet RxNorm: 858998 Take 1/2 Tablet(s) Oral QD 02/01/20 24 025 Active torsemide 20 mg tablet RxNorm: 004528 1 TAB ORALLY DAILY (DX: EDEMA) 01/27/20 24 No Stop Date Active potassium chloride ER 20 mEq tablet,extended release(part/cryst) RxNorm: 9363296 2 TABS (40MEQ) ORALLY TWICE DAILY (DX: HYPOKALEMIA) 01/27/20 24 No Stop Date Active cephalexin 500 mg capsule RxNorm: 154423 Take 1 Capsule(s) Oral QID 12/17/19 24 024 Inactive cephalexin 500 mg capsule RxNorm: 708396 Take 1 Capsule(s) Oral QID 12/17/19 24 024 Inactive acetaminophen 500 mg tablet RxNorm: 256440 (MAX APAP:4GM/24HR) Take 1 Tablet(s) Oral TID as needed for pain 12/10/19 24 024 Active torsemide 20 mg tablet RxNorm: 233561 Take 1 Tablet(s) Oral QD 10/26/19 24 024 Inactive potassium chloride ER 20 mEq tablet,extended release RxNorm: 532473 Take 2 Tablet(s) Oral BID 10/26/19 24 025 Active torsemide 20 mg tablet RxNorm: 494011 Take 1 Tablet(s) Oral QD 10/26/19 24 024 Inactive potassium chloride ER 20 mEq tablet,extended release RxNorm: 730372 Take 2 Tablet(s) Oral BID 10/26/19 24 024 Inactive Artificial Tears (PF) 0.1 %-0.3 % drops in a dropperette RxNorm: 736122 Apply 1-2 Drop(s) Both eyes BID as needed 09/28/19 24 025 Active erythromycin 5 mg/gram (0.5 %) eye ointment RxNorm: 330734 Apply 1 Application Both eyes QHS every night at bedtime Instill ~1 cm ribbon into affected eye 09/28/19 24 Inactive Artificial Tears (PF) 0.1 %-0.3 % drops in a dropperette RxNorm: 009671 Apply 1-2 Drop(s) Both eyes BID as needed 09/28/19 24 Inactive erythromycin 5 mg/gram (0.5 %) eye ointment RxNorm: 739660 Apply 1 Application Both eyes QHS every night at bedtime Instill ~1 cm ribbon into affected eye 09/28/19 24 024 Inactive acetaminophen 500 mg tablet RxNorm: 604196 (MAX APAP:4GM/24HR) Take 1 Tablet(s) Oral TID as needed for pain 09/24/19 24 Inactive carvedilol 25 mg tablet RxNorm: 682355 Take 1 Tablet(s) Oral QD 09/08/19 24 No Stop Date Active pregabalin 100 mg capsule RxNorm: 905235 Take 1 Capsule(s) Oral QAM every morning 09/07/19 24 024 Inactive rosuvastatin 40 mg tablet RxNorm: 317377 Take 1 Tablet(s) Oral QPM every evening 07/13/19 24 No Stop Date Active ezetimibe 10 mg tablet RxNorm: 802730 Take 1 Tablet(s) Oral QD 07/13/19 24 No Stop Date Active bisacodyl 10 mg rectal suppository RxNorm: 484809 Insert 1 Suppository Rectal QD as needed 07/13/19 24 No Stop Date Active polyethylene glycol 3350 17 gram/dose oral powder RxNorm: 797557 Take 17 Gram(s) Oral BID as needed mix in 4-8ox water 07/13/19 24 No Stop Date Active ketoconazole 2 % shampoo RxNorm: 294293 Apply 1 Application Topical UD as directed 07/13/19 24 No Stop Date Active aripiprazole 15 mg tablet RxNorm: 474990 Take 1/2 Tablet(s) Oral QD 07/13/19 24 024 Inactive Ozempic 1 mg/dose (4 mg/3 mL) subcutaneous pen injector RxNorm: 6976498 Inject 1 Milligram(s) Subcutaneous QW once a week 07/13/19 24 No Stop Date Active Guaifenesin AC 10 mg-100 mg/5 mL oral liquid RxNorm: 728010 Take 10 Milliliter(s) Oral Q4H every four hours as needed 07/13/19 24 No Stop Date Active isosorbide mononitrate ER 60 mg tablet,extended release 24 hr RxNorm: 516497 Take 1 Tablet(s) Oral QD 07/13/19 24 024 Inactive ammonium lactate 12 % topical cream RxNorm: 458016 Apply 1 Application Topical BID 07/13/19 24 No Stop Date Active hydrocortisone 2.5 % topical cream RxNorm: 045683 Apply 1 Application Topical BID as needed 07/13/19 24 No Stop Date Active rosuvastatin 20 mg sprinkle capsule RxNorm: 1838644 Take 1 Capsule(s) Oral QD 07/13/19 24 No Stop Date Active Vascepa 1 gram capsule RxNorm: 6652772 Take 2 Capsule(s) Oral BID 07/13/19 24 No Stop Date Active venlafaxine ER 75 mg capsule,extended release 24 hr RxNorm: 167356 Take 3 Capsule(s) Oral QD 07/13/19 24 No Stop Date Active Basaglar KwikPen U-100 Insulin 100 unit/mL (3 mL) subcutaneous RxNorm: 0529569 Inject 30U SubQ twice daily 07/07/19 24 024 Inactive Please dispense one month supply. Basaglar KwikPen U-100 Insulin 100 unit/mL (3 mL) subcutaneous RxNorm: 4675738 Inject 30U SubQ twice daily 07/07/19 24 024 Inactive Please dispense one month supply. pregabalin 150 mg capsule RxNorm: 933002 Take 1 Capsule(s) Oral QHS every night at bedtime 07/05/19 024 Inactive pregabalin 150 mg capsule RxNorm: 318234 Take 1 Capsule(s) Oral QHS every night at bedtime 07/05/19 024 Inactive polyethylene glycol 3350 17 gram/dose oral powder RxNorm: 288059 Take 1 Packet Oral QD as needed (1 packet = 17g) mix with 4-8oz of liquid 06/15/19 024 Inactive bisacodyl 10 mg rectal suppository RxNorm: 351496 Insert one suppository per rectum once daily as needed for constipation 06/15/19 024 Inactive bisacodyl 10 mg rectal suppository RxNorm: 014704 Insert one suppository per rectum once daily as needed for constipation 06/15/19 024 Inactive pregabalin 100 mg capsule RxNorm: 018261 Take 1 Capsule(s) Oral QAM every morning 04/27/20 024 Inactive Levemir FlexPen 100 unit/mL (3 mL) solution subcutaneous insulin pen RxNorm: 416063 Inject 30 Unit(s) Subcutaneous BID 04/27/20 024 Inactive rosuvastatin 40 mg tablet RxNorm: 894517 Take 1 Tablet(s) Oral QPM every evening 04/16/20 024 Inactive D/C rosuvastatin 20mg venlafaxine ER 75 mg capsule,extended release 24 hr RxNorm: 856398 Take 3 Capsule(s) Oral QD 04/14/20 23 023 Inactive pregabalin 100 mg capsule RxNorm: 994961 Take 1 Capsule(s) Oral QAM every morning [...] meter clotrimazole 1 % topical cream RxNorm: 130772 Take apply topically to abdominal folds twice daily for 14 days 03/12/20 024 Inactive Ozempic 1 mg/dose (4 mg/3 mL) subcutaneous pen injector RxNorm: 7498145 Inject 1 Milligram(s) Subcutaneous QW once a week 03/11/20 023 Inactive rosuvastatin 20 mg tablet RxNorm: 201636 Take 1 Tablet(s) Oral QD 02/26/20 023 Inactive d/c pravastatin 80mg Ozempic 1 mg/dose (4 mg/3 mL) subcutaneous pen injector RxNorm: 9499921 Inject 1 Milligram(s) Subcutaneous QW once a week 02/20/20 023 Inactive pregabalin 150 mg capsule RxNorm: 269002 Take 1 Capsule(s) Oral HS at bed time 02/19/20 023 Inactive pregabalin 100 mg capsule RxNorm: 554442 Take 1 Capsule(s) Oral QAM every morning 02/18/20 023 Inactive venlafaxine ER 75 mg capsule,extended release 24 hr RxNorm: 267254 Take 3 Capsule(s) Oral QD 02/04/20 023 Inactive FreeStyle Chema 2 Sensor kit RxNorm: use as directed 02/04/20 23 023 Inactive FreeStyle Chema 2 Sensor kit RxNorm: use as directed 02/04/20 23 024 Inactive fluconazole 150 mg tablet RxNorm: 153369 Take 1 Tablet(s) Oral on day 3 and on day 6 02/03/20 23 024 Inactive chlorthalidone 25 mg tablet RxNorm: 486987 Take 1 Tablet(s) Oral QAM every morning 02/03/20 23 No Stop Date Active venlafaxine ER 150 mg capsule,extended release 24 hr RxNorm: 932857 Take 1 Capsule(s) Oral QD 02/03/20 23 023 Inactive acetaminophen 500 mg tablet RxNorm: 945709 1 TABLET ORALLY 3 TIMES DAILY (MAX APAP:4GM/24HR) 12/15/19 23 023 Inactive clotrimazole 1 % topical cream RxNorm: 566781 apply 1g topically to top of feet and in between toes BID 12/09/19 023 Inactive potassium chloride ER 20 mEq tablet,extended release RxNorm: 553043 Take 1 Tablet(s) Oral BID 12/09/19 024 Inactive d/c 20mEq once daily (sent from hospital) nystatin 100,000 unit/gram topical powder RxNorm: 511838 APPLY TO AFFECTED AREAS TOPICALLY 2 TIMES DAILY 11/21/19 024 Inactive Nystop 100,000 unit/gram topical powder RxNorm: 789515 Apply to abd folds, under breasts and L side of groin Topical BID x 14 days, then BID PRN 11/20/19 023 Inactive dx: yeast dermatitis [place] Ultra Strength 4 %-30 %-10 % topical cream RxNorm: 331946 Apply 1 Gram(s) Topical QID PRN to feet and legs for neuropathic pain 11/11/19 024 Inactive clotrimazole 1 % topical cream RxNorm: 402612 Apply 1/2 Gram(s) Topical BID Apply to affected areas of groin, periarea, and abdominal topically 2 times daily 11/10/19 023 Inactive hydrocortisone 2.5 % topical cream RxNorm: 150242 Apply 1/2 Gram(s) Topical BID as needed 11/10/19 024 Inactive Humulin R U-500 (Concentrated) Insulin 500 unit/mL subcutaneous soln RxNorm: 974057 Inject 100 Unit(s) Subcutaneous TID 10/07/19 024 Inactive Levemir FlexPen 100 unit/mL (3 mL) solution subcutaneous insulin pen RxNorm: 366023 Inject 30 Unit(s) Subcutaneous BID 10/07/19 023 Inactive Ozempic 0.25 mg or 0.5 mg (2 mg/3 mL) subcutaneous pen injector RxNorm: 1030176 Inject 1/2 Milligram(s) Subcutaneous QW once a week 10/07/19 024 Inactive aripiprazole 15 mg tablet RxNorm: 133131 1/2 TAB (7.5MG) ORALLY DAILY (DX:MAJOR DEPRESSIVE DISORDER) 09/23/19 23 023 Inactive Lancets,Thin 28 gauge RxNorm: Use 1 as directed QID 09/15/19 23 024 Inactive Accu-Chek Guide test strips RxNorm: Use 1 Test Strip QID 09/15/19 23 023 Inactive ok to substitute with any covered alternative test strip torsemide 20 mg tablet RxNorm: 748050 Take 1 Tablet(s) Oral BID 09/09/19 23 024 Inactive d/c once daily dosing carvedilol 25 mg tablet RxNorm: 636454 Take 1 Tablet(s) Oral QD 08/25/19 23 024 Inactive pregabalin 150 mg capsule RxNorm: 715333 1 Capsule(s) Oral HS at bed time 08/18/19 23 023 Inactive pregabalin 100 mg capsule RxNorm: 690033 1 Capsule(s) Oral QAM every morning 08/18/19 23 023 Inactive carvedilol 25 mg tablet RxNorm: 097581 1 Tablet(s) Oral QD 07/28/19 23 023 Inactive lisinopril 20 mg tablet RxNorm: 246948 Give 1 Tablet(s) Oral QD 07/28/19 23 023 Inactive Lyrica 150 mg capsule RxNorm: 543370 Take 1 Capsule(s) Oral QHS every night at bedtime 07/19/19 023 Inactive d/c 100mg dose Diflucan 150 mg tablet RxNorm: 470278 Take 1 Tablet(s) Oral QD repeat on day 3 and 6 07/19/19 23 023 Inactive pregabalin 100 mg capsule RxNorm: 955384 Take 1 Capsule(s) Oral QAM every morning 07/19/19 23 023 Inactive gatifloxacin 0.5 % eye drops RxNorm: 379880 Instill 1 Drop(s) as directed TID Instill 1 drop in to affected eye(s) starting 1 day prior to surgery and continue until gone (do not exceed 4 weeks). 07/13/19 23 023 Inactive carvedilol 25 mg tablet RxNorm: 762129 2 Tablet(s) Oral BID 07/13/19 23 023 Inactive Humulin R Regular U-100 Insulin 100 unit/mL injection solution RxNorm: 471057 85 Unit(s) Injection TID 07/13/19 23 023 Inactive ketorolac 0.5 % eye drops RxNorm: 692563 Instill 1 Drop(s) as directed QID Instill 1 drop into affected eye(s) 4 times daily starting 1 day prior to surgery and continue until gone (do not exceed 4 weeks). 07/13/19 23 023 Inactive Diflucan 150 mg tablet RxNorm: 473479 Take 1 Tablet(s) Oral QD repeat on day 3 and 6 06/30/19 023 Inactive Accu-Chek Guide test strips RxNorm: Use 1 Test Strip QID Use 1 test strip to monitor blood glucose 4 times daily and as needed. Dx:E11.42. 06/23/19 23 023 Inactive ok to substitute with any covered alternative test strip dextromethorphan-gu aifenesin 10 mg-100 mg/5 mL oral liquid RxNorm: 387641 Take 10 Milliliter(s) Oral every 4 hours as needed for cough 06/19/19 023 Inactive dextromethorphan-gu aifenesin 10 mg-100 mg/5 mL oral liquid RxNorm: 743352 Take 10 Milliliter(s) Oral every 4 hours as needed for cough 06/19/19 23 023 Inactive Lyrica 150 mg capsule RxNorm: 245715 Take 1 Capsule(s) Oral QHS every night at bedtime 06/18/19 23 023 Inactive d/c 100mg dose aripiprazole 15 mg tablet RxNorm: 865465 1/2 TAB (7.5MG) ORALLY DAILY (DX:MAJOR DEPRESSIVE DISORDER) 06/05/19 23 023 Inactive pregabalin 100 mg capsule RxNorm: 741452 1 Capsule(s) Oral QAM every morning 06/02/19 23 023 Inactive Banophen 50 mg capsule RxNorm: 1274474 Take 1 Capsule(s) Oral Q6H every 6 hours as needed 05/19/19 No Stop Date Active Novolog Flexpen U-100 Insulin aspart 100 unit/mL (3 mL) subcutaneous RxNorm: 1353841 Inject 10 Unit(s) Subcutaneous QHS every night at bedtime with nighttime snack 04/08/20 Inactive Novolog Flexpen U-100 Insulin aspart 100 unit/mL (3 mL) subcutaneous RxNorm: 1429921 Inject 42 Unit(s) Subcutaneous TID in addition to sliding scale 04/08/20 Inactive d/c 36u albuterol sulfate HFA 90 mcg/actuation aerosol inhaler RxNorm: 3666935 Take 2 Puff(s) Inhalation Q4H every four hours as needed as needed for SOB, cough, or wheezing 04/07/20 030 Active Banophen 50 mg capsule RxNorm: 6165128 Take 1 Capsule(s) Oral Q6H every 6 hours as needed 04/06/20 023 Inactive diphenhydramine 50 mg tablet RxNorm: 1445406 Take 1 Tablet(s) Oral Q6H every 6 hours as needed 04/06/20 022 Inactive diphenhydramine 50 mg tablet RxNorm: 8227305 1 Tablet(s) Oral Q6H every 6 hours as needed 04/06/20 022 Inactive Abilify 15 mg tablet RxNorm: 319338 1/2 Tablet(s) Oral QD 03/10/20 023 Inactive Shingrix (PF) 50 mcg/0.5 mL intramuscular suspension, kit RxNorm: 2263893 Administer 1/2 Milliliter(s) Intramuscular QD one time shingrix step 2 ( step 1 given 11/04/21) WITH needle - Nursing please administer upon arrival and once administered post a bridge message with 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 administration, 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, expiration date, and lot# so we can update [facility] 02/18/20 22 022 Inactive dispense with needle Shingrix (PF) 50 mcg/0.5 mL intramuscular suspension, kit RxNorm: 1551981 Administer 1/2 Milliliter(s) Intramuscular QD one time shingrix step 2 ( step 1 given 11/04/21) WITH needle - Nursing please administer upon arrival and once administered post a bridge message with date of administration, 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, expiration date, and lot# so we can update [facility] 02/18/20 22 Inactive dispense with needle polyethylene glycol 3350 17 gram/dose oral powder RxNorm: 978074 Take 17=1 capful Gram(s) Oral QD mix with 4-8oz of liquid 01/08/20 22 023 Inactive take this in addition to BID prn order Lyrica 100 mg capsule RxNorm: 377977 Take 1 Capsule(s) Oral QAM every morning 01/08/20 22 022 Inactive d/c 50mg dose acetaminophen 500 mg tablet RxNorm: 948075 Take 1 Tablet(s) Oral TID 01/08/20 22 022 Inactive d/c PRN order Lyrica 150 mg capsule RxNorm: 277798 Take 1 Capsule(s) Oral QHS every night at bedtime 01/08/20 22 023 Inactive d/c 100mg dose Abilify 5 mg tablet RxNorm: 075837 Take 1 Tablet(s) Oral QD take 1 tab po QD #30 refill 5 dx: MDD 12/12/19 22 022 Inactive Abilify 5 mg tablet RxNorm: 801253 Take 1 Tablet(s) Oral QD take 1 tab po QD #30 refill 5 dx: MDD 12/12/19 22 022 Inactive Novolog Flexpen U-100 Insulin aspart 100 unit/mL (3 mL) subcutaneous RxNorm: 1511487 Inject 42 Unit(s) Subcutaneous TID in addition to sliding scale 12/10/19 22 022 Inactive d/c 36u chlorthalidone 25 mg tablet RxNorm: 418881 Take 1 Tablet(s) Oral QAM every morning 12/10/19 22 023 Inactive pregabalin 50 mg capsule RxNorm: 805732 Take 1 Capsule(s) Oral QAM every morning 11/12/19 22 022 Inactive tetanus-diphtheria toxoids-Td 2 Lf unit-2 Lf unit/0.5 mL IM suspension RxNorm: 139 Take 0.5 Miscellaneous Intramuscular 11/12/19 022 Inactive need tdap - nursing to administer upon arrival pregabalin 50 mg capsule RxNorm: 428115 Take 1 Capsule(s) Oral QAM every morning 10/16/19 22 022 Inactive pregabalin 50 mg capsule RxNorm: 187386 Take 1 Capsule(s) Oral QAM every morning 10/16/19 22 022 Inactive pregabalin 50 mg capsule RxNorm: 523338 1 Capsule(s) Oral QAM every morning 10/15/19 22 022 Inactive Shingrix (PF) 50 mcg/0.5 mL intramuscular suspension, kit RxNorm: 5123579 Administer 1/2 Milliliter(s) Intramuscular one time Nursing please administer upon arrival and once administered post a bridge message with date of administration, 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, expiration date, and lot# so we can update [facility]. 10/09/19 22 022 Inactive shingrix step 1 Shingrix (PF) 50 mcg/0.5 mL intramuscular suspension, kit RxNorm: 9387067 Administer 1/2 Milliliter(s) Intramuscular one time Nursing please administer upon arrival and once administered post a bridge message with date of administration, 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, expiration date, and lot# so we can update [facility]. 10/09/19 22 022 Inactive shingrix step 1 cholecalciferol (vitamin D3) 1,250 mcg (50,000 unit) capsule RxNorm: 842317 Take 1 Capsule(s) Oral QW once a [...] aspart 100 unit/mL (3 mL) subcutaneous RxNorm: 1967361 Inject 10 Unit(s) Subcutaneous QHS every night at bedtime with nighttime snack 10/08/19 22 Inactive Shingrix (PF) 50 mcg/0.5 mL intramuscular suspension, kit RxNorm: 3248529 ADMINISTER 2-DOSE SERIES PER CDC GUIDELINES 10/08/19 22 Active Shingrix (PF) 50 mcg/0.5 mL intramuscular suspension, kit RxNorm: 2283995 ADMINISTER 2-DOSE SERIES PER CDC GUIDELINES 10/08/19 22 Inactive Novolog Flexpen U-100 Insulin aspart 100 unit/mL (3 mL) subcutaneous RxNorm: 8231511 Inject 36 Unit(s) Subcutaneous TID in addition to sliding scale 10/08/19 Inactive Novofine Autocover 30 gauge x 1/3 needle RxNorm: Use 1 Miscellaneous UD as directed Use 1 needle as directed to administer insulin 5 times a day Dx:E11.42. 10/03/19 Inactive ok to substitute with any covered alternative pen needle benzoyl peroxide 10 % topical cleanser RxNorm: 988581 Apply 1 Application Topical QD apply to face, wash rinse and dry once daily (may change to QOD if drying) 08/19/19 022 Inactive (%covered by insurance) #60ml refill 11 dx: acne benzoyl peroxide 10 % topical cleanser RxNorm: 498092 Apply 1 Application Topical QD apply to face, wash rinse and dry once daily (may change to QOD if drying) 08/19/19 22 022 Inactive (%covered by insurance) #60ml refill 11 dx: acne benzoyl peroxide 10 % topical cleanser RxNorm: 694652 Apply 1 Application Topical QD apply to face, wash rinse and dry once daily (may change to QOD if drying) 08/19/19 22 022 Inactive (%covered by insurance) #60ml refill 11 dx: acne Lyrica 50 mg capsule RxNorm: 614358 Take 1 Capsule(s) Oral QAM every morning Take 1 capsule by mouth once daily 08/19/19 22 022 Inactive benzoyl peroxide 10 % topical cleanser RxNorm: 155673 Apply 1 Application Topical QD apply to face, wash rinse and dry once daily (may change to QOD if drying) 08/19/19 22 Inactive (%covered by insurance) #60ml refill 11 dx: acne Lyrica 100 mg capsule RxNorm: 274908 Take 1 Capsule(s) Oral QHS every night at bedtime Take 1 capsule by mouth once daily at bedtime 08/19/19 22 022 Inactive Lyrica 100 mg capsule RxNorm: 322788 Take 1 Capsule(s) Oral QHS every night at bedtime Take 1 capsule by mouth once daily at bedtime 08/16/19 22 022 Inactive Lyrica 50 mg capsule RxNorm: 162106 Take 1 Capsule(s) Oral QAM every morning Take 1 capsule by mouth once daily 08/16/19 22 022 Inactive Levemir FlexTouch U-100 Insulin 100 unit/mL (3 mL) subcutaneous pen RxNorm: 874879 Inject 86 Unit(s) Subcutaneous BID 08/05/19 22 022 Inactive d/c 83units BID Lyrica 100 mg capsule RxNorm: 671921 Take 1 Capsule(s) Oral QHS every night at bedtime Take 1 capsule by mouth once daily at bedtime 07/14/19 22 022 Inactive Lyrica 50 mg capsule RxNorm: 305823 Take 1 Capsule(s) Oral QAM every morning Take 1 capsule by mouth once daily 07/14/19 22 022 Inactive Levemir FlexTouch U-100 Insulin 100 unit/mL (3 mL) subcutaneous pen RxNorm: 349864 Inject 83 Unit(s) Subcutaneous BID 07/08/19 22 [...] test strip hydralazine 50 mg tablet RxNorm: 931531 Take 1 Tablet(s) Oral QID 05/05/20 21 022 Inactive venlafaxine ER 225 mg tablet,extended release 24 hr RxNorm: 347619 Take 1 Tablet(s) Oral QD 05/05/20 21 021 Inactive venlafaxine ER 225 mg tablet,extended release 24 hr RxNorm: 676468 Take 1 Tablet(s) Oral QD 05/05/20 21 022 Inactive isosorbide mononitrate ER 30 mg tablet,extended release 24 hr RxNorm: 142777 Take 1 Tablet(s) Oral QD 05/05/20 21 024 Inactive hydralazine 50 mg tablet RxNorm: 573121 Take 1 Tablet(s) Oral QID 05/05/20 21 021 Inactive aspirin 81 mg tablet,delayed release RxNorm: 879138 Take 1 Tablet(s) Oral QD 03/31/20 21 022 Inactive Vitamin D2 1,250 mcg (50,000 unit) capsule RxNorm: 7548598 Take 1 Capsule(s) Oral QW once a week x 12 weeks 03/31/20 022 Inactive Vitamin D2 1,250 mcg (50,000 unit) capsule RxNorm: 8950204 Take 1 Capsule(s) Oral QW once a week 03/31/20 021 Inactive Zetia 10 mg tablet RxNorm: 880315 Take 1 Tablet(s) Oral QD 03/31/20 024 Inactive Zetia 10 mg tablet RxNorm: 459136 Take 1 Tablet(s) Oral QD 03/31/20 Inactive hydralazine 25 mg tablet RxNorm: 128041 Take 1 Tablet(s) Oral QID 03/31/20 021 Inactive hydralazine 25 mg tablet RxNorm: 550417 Take 1 Tablet(s) Oral QID 03/31/20 021 Inactive hydralazine 10 mg tablet RxNorm: 360441 Take 1 Tablet(s) Oral QID 03/03/20 021 Inactive cephalexin 500 mg tablet RxNorm: 601426 Take 1 Tablet(s) Oral QID 02/27/20 021 Inactive cephalexin 500 mg tablet RxNorm: 188052 Take 1 Tablet(s) Oral QID 02/27/20 021 Inactive lisinopril 40 mg tablet RxNorm: 500839 Take 1 Tablet(s) Oral QD 02/11/20 023 Inactive Eliquis 5 mg tablet RxNorm: 6054030 Take 1 Tablet(s) Oral BID 01/05/20 022 Inactive Eliquis 5 mg tablet RxNorm: 2450639 Take 2 Tablet(s) Oral QD 01/01/20 021 Inactive Lyrica 50 mg capsule RxNorm: 469369 Take 1 Capsule(s) Oral QAM every morning 12/24/19 21 021 Inactive Lyrica 100 mg capsule RxNorm: 951934 Take 1 Capsule(s) Oral QHS every night at bedtime 12/24/19 21 021 Inactive clotrimazole 1 % topical cream RxNorm: 705466 Apply to right foot and toes Topical BID 12/04/19 21 023 Inactive metoprolol succinate ER 200 mg tablet,extended release 24 hr RxNorm: 370468 Take 1 Tablet(s) Oral QD 12/04/19 21 023 Inactive ciprofloxacin 500 mg tablet RxNorm: 503804 Take 1 Tablet(s) Oral QD 11/30/19 21 021 Inactive DX ofloxacin otic drops Accu-Chek Guide test strips RxNorm: USE 1 TO CHECK GLUCOSE 4 TIMES DAILY AND NEEDED 11/15/19 023 Inactive Blood Glucose Test strips RxNorm: Use 1 Test Strip QID at PRN 11/05/19 21 023 Inactive E11.42 lisinopril 30 mg tablet RxNorm: 812857 Take 1 Tablet(s) Oral QD 10/30/19 021 Inactive lisinopril 20 mg tablet RxNorm: 220812 Take 1 Tablet(s) Oral QD 10/23/19 021 Inactive lisinopril 20 mg tablet RxNorm: 135586 Take 1 Tablet(s) Oral QD 10/23/19 21 021 Inactive lisinopril 10 mg tablet RxNorm: 588263 Take 1 Tablet(s) Oral QD 10/02/19 21 021 Inactive icosapent ethyl 1 gram capsule RxNorm: 0607279 Take 2 Capsule(s) (2 gm) Oral BID with meals 09/12/19 21 024 Inactive Okay to dispense one 2gm tab if you have that available. icosapent ethyl 1 gram capsule RxNorm: 2554307 Take 2 Capsule(s) Oral BID 09/12/19 21 021 Inactive Okay to dispense one 2gm tab if you have that available. amlodipine 10 mg tablet RxNorm: 255431 Take 1 Tablet(s) Oral QD 09/04/19 21 022 Inactive aspirin 81 mg tablet,delayed release RxNorm: 006576 Take 1 Tablet(s) Oral QD 09/04/19 21 021 Inactive Levemir FlexTouch U-100 Insulin 100 unit/mL (3 mL) subcutaneous pen RxNorm: 275617 Inject 150 Unit(s) Subcutaneous BID 09/04/19 022 Inactive venlafaxine ER 150 mg tablet,extended release 24 hr RxNorm: 496284 Take 1 Tablet(s) Oral QD 09/04/19 Inactive clotrimazole-betame thasone 1 %-0.05 % topical cream RxNorm: 310096 Apply to rash on red area on left abdomen/chest Topical BID 08/10/19 21 Inactive amlodipine 5 mg tablet RxNorm: 555778 Take 1 Tablet(s) Oral QD 07/31/19 Inactive cephalexin 500 mg tablet RxNorm: 205474 Take 1 Tablet(s) Oral BID BID - Twice Daily 07/31/19 021 Inactive Start 08/01/20 pantoprazole 40 mg tablet,delayed release RxNorm: 309896 Take 1 Tablet(s) Oral QAM every morning 07/08/19 022 Inactive senna 8.6 mg tablet RxNorm: 183539 Take 1 Tablet(s) Oral QD 07/08/19 022 Inactive carbamazepine 200 mg tablet RxNorm: 704709 Take 1 Tablet(s) Oral BID 07/08/19 022 Inactive clopidogrel 75 mg tablet RxNorm: 541914 Take 1 Tablet(s) Oral QD 07/08/19 021 Inactive Blood Glucose Test strips RxNorm: Use 1 Test Strip QID at PRN 07/08/19 021 Inactive E11.42 Novolog Flexpen U-100 Insulin aspart 100 unit/mL (3 mL) subcutaneous RxNorm: 7350022 Administer per sliding scale Milliliter(s) Subcutaneous TID 151-200: 10 u; 201-250: 20 u; 251-300: 30 u; 301-350: 40 u; 351-400: 50 u. 07/08/19 022 Inactive lisinopril 5 mg tablet RxNorm: 411649 Take 1 Tablet(s) Oral QD 07/08/19 21 021 Inactive Novolog Flexpen U-100 Insulin aspart 100 unit/mL (3 mL) subcutaneous RxNorm: 1931435 Inject 85 Unit(s) Subcutaneous TID 07/08/19 21 022 Inactive pravastatin 80 mg tablet RxNorm: 683977 Take 1 Tablet(s) Oral QHS every night at bedtime 07/08/19 023 Inactive clotrimazole 1 % topical cream RxNorm: 959206 Apply to bilateral groin areas Topical BID 07/08/19 022 Inactive metoprolol succinate ER 200 mg tablet,extended release 24 hr RxNorm: 689742 Take 1 Tablet(s) Oral QD 07/08/19 21 021 Inactive Vitamin D3 25 mcg (1,000 unit) tablet RxNorm: 205808 Take 1 Tablet(s) Oral QD 07/08/19 021 Inactive isosorbide dinitrate 30 mg tablet RxNorm: 467521 Take 1 Tablet(s) Oral QD 07/08/19 021 Inactive Levemir FlexTouch U-100 Insulin 100 unit/mL (3 mL) subcutaneous pen RxNorm: 765864 Inject 140 Unit(s) Subcutaneous BID 07/08/19 021 Inactive torsemide 20 mg tablet RxNorm: 241740 Take 1 Tablet(s) Oral QD 07/08/19 21 023 Inactive venlafaxine 75 mg tablet RxNorm: 859888 Take 1 Tablet(s) Oral QD 07/08/19 021 Inactive acetaminophen 500 mg tablet RxNorm: 300693 Take 1 Tablet(s) Oral TID as needed for headache 06/18/19 021 Inactive acetaminophen 500 mg tablet RxNorm: 817679 Take 1 Tablet(s) Oral TID as needed for headache 06/18/19 021 Inactive Lyrica 100 mg capsule RxNorm: 104150 Take 1 Capsule(s) Oral QHS every night at bedtime 06/11/19 021 Inactive Lyrica 50 mg capsule RxNorm: 069852 Take 1 Capsule(s) Oral QAM every morning 06/10/19 21 021 Inactive hydrocortisone 2.5 % topical cream RxNorm: 975513 Apply to bilateral groin creases Topical BID 05/15/20 20 021 Inactive clotrimazole 1 % topical cream RxNorm: 269740 Apply to bilateral groin areas Topical BID 05/15/20 20 021 Inactive Lyrica 50 mg capsule RxNorm: 413466 Take 1 Capsule(s) Oral QAM every morning 05/14/20 20 020 Inactive Lyrica 100 mg capsule RxNorm: 681922 Take 1 Capsule(s) Oral QHS every night [...] Inactive Nystop 100,000 unit/gram topical powder RxNorm: 145598 Apply to abd folds, under breasts and L side of groin Topical BID x 14 days, then BID PRN 04/08/20 20 020 Inactive dx: yeast dermatitis Lyrica 100 mg capsule RxNorm: 523972 Take 1 Capsule(s) Oral QHS every night at bedtime 03/13/20 20 020 Inactive Lyrica 50 mg capsule RxNorm: 862423 Take 1 Capsule(s) Oral QAM every morning 03/13/20 20 020 Inactive ketoconazole 2 % shampoo RxNorm: 724667 Apply Topical two times a week with showers 03/11/20 20 Inactive cholecalciferol (vitamin D3) 50 mcg (2,000 unit) tablet RxNorm: 790716 Take 1 Tablet(s) Oral QD 03/11/20 20 021 Inactive Zetia 10 mg tablet RxNorm: 611492 Take 1 Tablet(s) Oral QD 03/07/20 021 Inactive Zetia 10 mg tablet RxNorm: 994230 Take 1 Tablet(s) Oral QD 03/07/20 20 Inactive Lyrica 50 mg capsule RxNorm: 765309 Take 1 Capsule(s) Oral QAM every morning 02/15/20 Inactive Lyrica 100 mg capsule RxNorm: 596948 Take 1 Capsule(s) Oral QHS every night at bedtime 02/15/20 Inactive Lyrica 100 mg capsule RxNorm: 076362 Take 1 Capsule(s) Oral QHS every night at bedtime 02/15/20 Inactive Lyrica 50 mg capsule RxNorm: 489334 Take 1 Capsule(s) Oral QAM every morning 02/15/20 20 Inactive metoprolol succinate ER 200 mg tablet,extended release 24 hr RxNorm: 973131 Take 1 Tablet(s) Oral QD 08/12/19 23 Active loperamide 2 mg capsule RxNorm: 132235 Take 1 Capsule(s) Oral QID as needed 06/12/19 22 Active hydralazine 50 mg tablet RxNorm: 008936 Take 1 Tablet(s) Oral QID 08/12/19 23 Active venlafaxine ER 75 mg capsule,extended release 24 hr RxNorm: 497310 Take 3 Capsule(s) Oral QD 06/12/19 22 023 Inactive polyethylene glycol 3350 17 gram/dose oral powder RxNorm: 966126 Take 17=1 capful Gram(s) Oral BID as needed mix with 4-8oz of liquid 06/12/19 22 024 Inactive icosapent ethyl 1 gram capsule RxNorm: 4749953 Take 2 Capsule(s) (2 gm) Oral BID with meals 10/07/19 23 023 Inactive Okay to dispense one 2gm tab if you have that available. Levemir FlexTouch U-100 Insulin 100 unit/mL (3 mL) subcutaneous pen RxNorm: 205902 Inject 80 Unit(s) Subcutaneous BID 07/14/19 23 023 Inactive Novolog Flexpen U-100 Insulin aspart 100 unit/mL (3 mL) subcutaneous RxNorm: 4954354 Insert 30 Unit(s) Subcutaneous TID with meals [...] Status Date Referral: [facility] WPtel: [address] [id number] [place] Referral Records Received 09/21/2022 Referral: [facility] WPtel: [address] [id number] [place] Referral Completed 05/28/2021 Referral: General Cardiology [...] attention.??Sister Jyotsna involved in his care cell# [phone]??Guardian: Giulia (tapan met in person 09/01/21), now [...] )??Bobbi note from 11.08.2023 at [facility] (follow up 6 months)Colon & Rectal Surgery visit scheduled for 03/08/24 with Matilde Pérez PA-C.?? 02/08/2024
--- OUTSIDE RECORDS SUMMARY | 2024-02-22 14:31 | XMS_ITS | Clinical Summary ---
Author Organization [facility] Address [address] [place] [address] Phone Care Team Providers Care Flare Breaker Name Role Phone Mellisa Shirley PA-C Primary Care Provider [phone] Allergies Active Allergy Reactions Criticality Noted Date [...] 05/26/2021 Active cholecalciferol (VITAMIN D-3) 1.25 MG (93883 UT) capsule Take 1,250 mcg by mouth [...] age to complete this topic Care Teams Flare Breaker Relationship Specialty Start Date End Date Mellisa Shirley PA-C PCP - General Physician Metal Bed Assembler 08/31/22
--- OUTSIDE RECORDS SUMMARY | 2024-02-22 14:31 | XMS_ITS | Clinical Summary ---
Author Organization [facility] Address [address] [place] [address] Care Team Providers Care Voting Machine Mechanic Name Role Phone Services, [facility] Physician Primary Care Provi sadia Prince Tobar MD Unavailable Prince Tobar MD Unavailable Matilde Pérez PA-C Unavailable [phone] Allergies Active Allergy Reactions Criticality Noted Date [...] daily Active cholecalciferol (VITAMIN D3) 1250 mcg (47150 units) capsule Take 1,250 mcg by mouth every 7 days on Wednesdays. Active venlafaxine (EFFEXOR-XR) 75 MG 24 hr capsule Take 225 mg by mouth daily Active hydrALAZINE (APRESOLINE) 50 MG tablet Take 50 mg by mouth 4 times daily Active polyethylene glycol (MIRALAX) 17 GM/Dose powder Take 17 g by mouth daily Active nystatin (MYCOSTATIN) 474984 UNIT/GM external powder Apply topically 2 times [...] CDT - 12/29/2023 12:59 AM CDT Emergency [facility] Emergency Dept [address] [place] [address] Agustin Cesar MD Anal fissure; External hemorrhoids Discharge Disposition: Home or Self Care 12/28/2023 Travel from Last 3 Months Immunizations Name Administration Dates Next Due COVID-19 MONOVALENT 12+ (Pfizer) 06/25/2020,05/17 C2d5-34 Novel Flu 05/07/2009 Hepatitis B, Adult 02/16/2014,10/12/2013, [...] Choose 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 [employer] Last Filed Vital Signs Vital Sign Reading [...] Care Team (Late st Contact Info) Description 02/25/2024 2:00 PM CDT Office Visit [facility] [address] [place] [address] Kathryn Soto, SLITTING MACHINE OPERATOR MANAGER CLUB [address] [place] [address] 03/08/2024 PRE VISIT [facility] [address] [phone] Matilde Pérez PA-C [address] [place] [address] Previsit 03/08/2024 12:00 PM CDT Office Visit [facility] [address] [phone] Reinaldo Beltran PA-C Emergency Physicians [facility] [place] [address] Matilde Pérez PA-C [address] [place] [phone] Health Maintenance Due Date Last Done Comments [...] without heart failure Atherosclerotic heart disease of [place] coronary artery without angina pectoris Body mass [...] [facility] [address] Lab (1st floor, no room number) [place] [address] * Adult Type and Screen (12/28/2023 6:41 PM CDT) ABO/RH(D) A POS 12/28/2023 6:28 PM CDT RH BLOOD BANK Antibody Screen Negative Negative 12/28/2023 6:28 PM CDT RH BLOOD BANK SPECIMEN EXPIRATION DATE [id number] 12/28/2023 6:28 PM CDT RH BLOOD BANK Blood STRUCTURE OF RIGHT UPPER LIMB / Unknown Venipuncture / Unknown 12/28/2023 6:41 PM CDT 12/28/2023 6:46 PM CDT Agustin Cesar MD LAB - BLOOD BAN K TEST ORDER RH BLOOD BANK [address] [place] [address] * INR (12/28/2023 6:41 PM CDT) INR 1.01 0.85 - 1.15 12/28/2023 7:00 PM CDT RH LABORATORY Blood STRUCTURE OF RIGHT UPPER LIMB / Unknown Venipuncture / Unknown 12/28/2023 6:41 PM CDT 12/28/2023 6:46 PM CDT Agustin Cesar MD LAB - BLOOD ORD ERABLES [facility] Acute Care Lab [address] Lab (1st floor, no room number) [place] [address] * Partial thromboplastin [...] Center & Hospital/ZIP Co de Phone Number [facility] Acute [facility] Lab [address] Lab (1st floor, no room number) [place] [address] * (ABNORMAL) Comprehensive [...] LAB - BLOOD ORD ERABLES RH LABORATORY [facility] Acute Care Lab [address] Lab (1st floor, no room number) [place] [address], [facility] * (ABNORMAL) Hemoglobin A1c (10/15/2023 3:13 PM CDT) Hemoglobin A1C 10.8(H) <5.7 % 10/15/2023 4:57 PM CDT RH LABORATORY Comment: Normal <5.7% Prediabetes 5.7-6.4% ?? Diabetes 6.5% or higher Note: Adopted from ADA consensus guidelines. Blood BLOOD SPECIMEN / Unknown Client Draw / Unknown 10/15/2023 3:13 PM CDT 10/15/2023 4:25 PM CDT Harrison Munson LAB - BLOOD ORDERABL ES [facility] Acute Care Lab [address] [facility] Lab (1st floor, no room number) [place] [address], [facility] from Last 3 Months or Most Recently Relevant to Health Maintenance Advance Directives For more information, please contact: [phone] Documents on File Type Date Recorded Patient Examining Chair Assembler Expl anation Advance Directives and Living Will [...] Comments Code status determined by: Discussion with angiee nt/ legal decision maker Care Teams Voting Machine Mechanic Relationship Specialty Start Date End Date Services, [facility] Physician [address] [facility], [facility] [address] [place] [address] PCP - General 05/22/21 Prince Tobar MD [address] [place] [address] Cardiovascular Disease 03/26/22 Prince Tobar MD [address] [place] [address] Assigned Heart and Vascular Provider 05/30/22 Matilde Pérez PA-C [address] [place] [address] Physician Triple Drum Operator Physician Triple Drum Operator - Surgical 12/30/23
--- OUTSIDE RECORDS SUMMARY | 2024-02-22 14:32 | XMS_ITS | Referral Summary ---
Author Organization [facility] Address [address] [place] [address] Care Team Providers Care Scrap Metal Collector Name Role Phone Services, [facility] Physician Primary Care Provi sadia Prince Tobar MD Unavailable Prince Tobar MD Unavailable Matilde Pérez PA-C Unavailable [phone] Encounters Date Type Department Care Team Description 12/28/2023 6:08 PM CDT - 12/29/2023 12:59 AM T Emergency [facility] Emergency Dept [address] [place] [address] Agustin Cesar MD Anal fissure; External hemorrhoids [...] daily Active cholecalciferol (VITAMIN D3) 1250 mcg (17298 units) capsule Take 1,250 mcg by mouth every 7 days on Wednesdays. 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 Last Filed Vital Signs Vital Sign Reading [...] Description 02/25/2024 2:00 PM CDT Office Visit [facility] [address] [place] [address] Kathryn Soto, PACKING LINE WORKER TERMITE CONTROL TECHNICIAN [address] [place] [address] 03/08/2024 PRE VISIT [facility] Rectal Surgery Clinic [address] [address] Matilde Pérez PA-C [address] [place] [phone] Previsit 03/08/2024 12:00 PM CDT Office Visit [facility]al [facility] Clinic [address] [address] Reinaldo Beltran PA-C Emergency Physicians [facility] [place] [address] [place] [address] Matilde Pérez PA-C [address] [place] [address] Procedures Procedure Name Priority Date/Time Associated Diagnosis [...] without heart failure Atherosclerotic heart disease of enterprise coronary artery without angina pectoris Body mass [...] MD LAB - BLOOD ORD ERABLES LABORATORY [facility] Acute Care Lab [address] Lab (1st floor, no room number) [place] [address], [facility] * Adult Type and Screen (12/28/2023 6:41 PM CDT) ABO/RH(D) A POS 12/28/2023 6:28 PM CDT RH BLOOD BANK Antibody Screen Negative Negative 12/28/2023 6:28 PM CDT RH BLOOD BANK SPECIMEN EXPIRATION DATE [id number] 12/28/2023 6:28 PM CDT RH BLOOD BANK Blood STRUCTURE OF RIGHT UPPER LIMB / Unknown Venipuncture / Unknown 12/28/2023 6:41 PM CDT 12/28/2023 6:46 PM CDT Agustin Cesar MD LAB - BLOOD BAN K TEST ORDER RH BLOOD BANK [address] [place] [address], [facility] * INR (12/28/2023 6:41 PM CDT) INR 1.01 0.85 - 1.15 12/28/2023 7:00 PM CDT RH LABORATORY Blood STRUCTURE OF RIGHT UPPER LIMB / Unknown Venipuncture / Unknown 12/28/2023 6:41 PM CDT 12/28/2023 6:46 PM CDT Agustin Cesar MD LAB - BLOOD ORD ERABLES Performing Organization Address City/[facility]/ZIP Co de Phone Number [facility] [address] Lab (1st floor, no room number) [place] [phone] [place] [address] * Partial thromboplastin time (12/28/2023 6:41 PM CDT) Pathologist [facility] aPTT 28 22 - 38 Seconds 12/28/2023 7:00 PM CDT LABORATORY Blood STRUCTURE OF RIGHT UPPER LIMB / Unknown Venipuncture / Unknown 12/28/2023 6:41 PM CDT 12/28/2023 6:46 PM CDT Agustin Cesar MD LAB - BLOOD ORD ERABLES Performing Organization Address City/[facility] Co de Phone Number [facility] [address] Lab (1st floor, no room number) [address] * (ABNORMAL) Comprehensive metabolic panel [...] - 99 mg/dL 12/28/2023 7:09 PM CDT LABORATORY Alkaline Phosphatase 110 40 - 150 [...] LAB - BLOOD ORD ERABLES RH LABORATORY [facility] Acute Care Lab [address] [facility] Lab (1st floor, no room number) [place] [address], [facility] * (ABNORMAL) Hemoglobin A1c (10/15/2023 3:13 PM CDT) Hemoglobin A1C 10.8(H) <5.7 % 10/15/2023 4:57 PM CDT RH LABORATORY Comment: Normal <5.7% Prediabetes 5.7-6.4% ?? Diabetes 6.5% or higher Note: Adopted from ADA consensus guidelines. 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 Advance Directives and Living [...] angiee nt/ legal decision maker Care Teams Scrap Metal Collector Relationship Specialty Start Date End Date Services, [facility] Physician [address] [place] [address], [address] [address] PCP - General 05/22/21 Prince Tobar MD [address] [place] [address] Cardiovascular Disease 03/26/22 Prince Tobar MD [address] [place] [address] Assigned Heart and Vascular Provider 05/30/22 Matilde Pérez PA-C [address] [place] [address] [phone] Physician Extrusion Die Corrector Physician Extrusion Die Corrector - Surgical 12/30/23
--- OUTSIDE RECORDS SUMMARY | 2024-02-22 14:32 | XMS_ITS | Encounter Summary ---
Author Organization [facility] Address [address] 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 TECHNICAL SERVICES MANAGER documented as of this encounter Plan of Treatment Upcoming Encounters Date Type Department Care Team (Late st Contact Info) Description 02/25/2024 2:00 PM CDT Office Visit [facility] [address] [place] [phone] Kathryn Soto APRN PAPER CLEANER [address] [facility] [address] 03/08/2024 PRE VISIT [facility] [place] [address] [phone] Matilde Pérez PA-C [address] [place] [address] Previsit 03/08/2024 12:00 PM CDT Office Visit [facility] [address] [phone] Reinaldo Beltran PA-C [facility] [address] [facility] [address] [facility] [address] [place] [address] Matilde Pérez PA-C [address] [place] [address] documented as of this encounter Visit Diagnoses Not on filedocumented in this encounter Care Teams Director Of Engineering Relationship Specialty Start Date End Date Services, [facility] Physician [address] [place] [address], [address] [address] PCP - General 05/22/21 Prince Tobar MD [address] [place] [address] Cardiovascular Disease 03/26/22 Prince Tobar MD [address] [place] [address] Assigned Heart and Vascular Provider 05/30/22 documented as of this encounter
--- OUTSIDE RECORDS SUMMARY | 2024-02-22 14:32 | XMS_ITS | Encounter Summary ---
Author Organization [facility] Address [address] [place] [address] Care Team Providers Care Commercial Real Estate Attorney Name Role Phone Services, [facility] Physician Primary Care Provi sadia Prince Tobar MD Unavailable [phone] Prince Tobar MD Unavailable [phone] Reason for Referral * Consultation (Priority: 1-2 Weeks) - Pending Review Specialty Diagnoses / Procedures Referred By Contjohnny dalal Referred To Contact Colon and Rectal Surgery Diagnoses Anal fissure External hemorrhoids Reinaldo Beltran PA-C [facility] [address] [place] [place] [address] Referral ID Status Reason Start Date Expiration Date V isits Requested Visits Authorized [id number] Pending Review 12/28/2023 12/27/2024 1 1 Question Answer Reason for Referral: Anal Fissure Special Concerns: Other My Clinical Question Is: Anal fissure, taking Apixaban Scheduling Instructions: [employer] will call you to coordinate care as prescribed your provider. If you don? t hear from a representative government relations within 2 business days, please call . Comments Please be aware that coverage of these services is subject to the terms and limitations of your health insurance plan. Call member services at your health plan with any benefit or coverage questions. [employer] will call you to coordinate care as prescribed your provider. If you don? t hear from a representative government relations within 2 business days, please call . 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 The bleeding you noted on [...] mouth daily cholecalciferol (VITAMIN D3) 1250 mcg (91420 units) capsule Take 1,250 mcg by mouth [...] 7 days 4 g 12/28/2023 nystatin (MYCOSTATIN) 448665 UNIT/GM external powder Apply topically 2 times [...] MG tablet cholecalciferol (VITAMIN D3) 1250 mcg (07870 units) capsule clotrimazole (LOTRIMIN) 1 % external [...] 200 MG 24 hr tablet nystatin (MYCOSTATIN) 429615 UNIT/GM external powder pantoprazole (PROTONIX) 40 MG [...] POS Antibody Screen Negative SPECIMEN EXPIRATION DATE [id number] ABO/RH TYPE AND SCREEN Emergency Department Course [...] 1. Anal fissure K60.2 Adult Colorectal Surgery Wet End Helper Referral 2. External hemorrhoids K64.4 Adult Colorectal Surgery Wet End Helper Referral Discharge Medications: New Prescriptions HYDROCORTISONE, [...] yesterday, he went to a clinic in [place], he is unsure of what was done [...] MG tablet cholecalciferol (VITAMIN D3) 1250 mcg (92960 units) capsule clotrimazole (LOTRIMIN) 1 % external [...] 200 MG 24 hr tablet nystatin (MYCOSTATIN) 199369 UNIT/GM external powder pantoprazole (PROTONIX) 40 MG [...] POS Antibody Screen Negative SPECIMEN EXPIRATION DATE [id number] ABO/RH TYPE AND SCREEN Imaging No orders to display Independent Interpretation None ED Course Medications Administered Medications - No data to display Procedures Procedures Discussion of Management Staffed with Dr. Cesar ED Course ED Course as of 12/28/231936Dec 28, 20231838 I evaluated and examined the patient 1902 Rectal exam with RN at bedside Additional Documentation None Medical Decision Making / Diagnosis [facility] Diagnoses: None MIPS None [facility] Leonid Leahy is a 63 year [...] 1. Anal fissure K60.2 Adult Colorectal Surgery Wet End Helper Referral 2. External hemorrhoids K64.4 Adult Colorectal Surgery Wet End Helper Referral Discharge Medications New Prescriptions HYDROCORTISONE, [...] Pt comes from assisted living facility in [place]. * Tamiko Monzon RN - 12/28/2023 6:08 PM CDT Bed: ED01 Expected date: Expected time: Means of arrival: Comments: [id number] documented in this encounter Plan of Treatment Upcoming Encounters Date Type Department Care Team (Late st Contact Info) Description 02/25/2024 2:00 PM CDT Office Visit M [address] [place] [phone] Kathryn Soto APRN JIGSAWYER [address] [place] [address] 03/08/2024 PRE VISIT M [facility] Colon and Rectal Surgery Clinic [address] 4th [place] [address] Matilde Pérez PA-C [address] [place] [address] [phone] Previsit 03/08/2024 12:00 PM CDT Office Visit [facility] Colon and Rectal Surgery [facility] [place] [address] [place] [address] 4th [place] [phone] Reinaldo Beltran PA-C [facility] [address] [place] [phone] Matilde Pérez PA-C [address] [place] [address] Scheduled Referrals Name Type Priority Associated Diagnoses Orde r Schedule Adult Colorectal Surgery Wet End Helper Referral Referral Priority: 1-2 Weeks Anal [...] CDT RH BLOOD BANK SPECIMEN EXPIRATION DATE [id number] 12/28/2023 6:28 PM CDT RH BLOOD BANK Blood STRUCTURE OF RIGHT UPPER LIMB / Unknown Venipuncture / Unknown 12/28/2023 6:41 PM CDT 12/28/2023 6:46 PM CDT Agustin Cesar MD LAB - BLOOD BAN K TEST ORDER RH BLOOD BANK [address] [place] [address] * (ABNORMAL) CBC with platelets and differential [...] MD LAB - BLOOD ORD ERABLES LABORATORY [facility] Acute Care Lab [address] [facility] Lab (1st floor, no room number) [place] [address], [facility] * (ABNORMAL) Comprehensive metabolic panel (12/28/2023 6:41 [...] MD LAB - BLOOD ORD ERABLES LABORATORY [facility] Acute Care Lab [address] Lab (1st floor, no room number) [address] * Partial thromboplastin time (12/28/2023 6:41 PM CDT) aPTT 28 22 - 38 Seconds 12/28/2023 7:00 PM CDT [facility] LABORATORY Blood STRUCTURE OF RIGHT UPPER LIMB / Unknown Venipuncture / Unknown 12/28/2023 6:41 PM CDT 12/28/2023 6:46 PM CDT Agustin Cesar MD LAB - BLOOD ORD ERABLES [facility] Care Lab [address] Lab (1st floor, no room number) [address] * INR (12/28/2023 6:41 PM CDT) INR 1.01 0.85 - 1.15 12/28/2023 7:00 PM CDT RH LABORATORY Blood STRUCTURE OF RIGHT UPPER LIMB / Unknown Venipuncture / Unknown 12/28/2023 6:41 PM CDT 12/28/2023 6:46 PM CDT Agustin Cesar MD LAB - BLOOD ORD ERABLES [facility] Care Lab [address] Lab (1st floor, no room number) [address] documented in this encounter Visit Diagnoses Diagnosis Anal fissure External hemorrhoids External hemorrhoids without mention of complication documented in this encounter Care Teams Commercial Real Estate Attorney Relationship Specialty Start Date End Date Services, [facility] Physician [address] [place] [address], [address] [address] PCP - General 05/22/21 Prince Tobar MD [address] [place] [address] Cardiovascular Disease 03/26/22 Prince Tobar MD [address] [place] [address] Assigned Heart and Vascular Provider 05/30/22 documented as of this encounter
--- OUTSIDE RECORDS SUMMARY | 2024-02-22 14:32 | XMS_ITS | Clinical Summary ---
Author Organization [facility] Address [place], [place] [address] Care Team Providers Care Molder Operator Name Role Phone Alan Lopez MD Unavailable Nishant Wtason MD Unavailable Pcp, No Primary Care Provider [...] type 2 diabetes mellitus (HC),Chronic edema JOBST #[id number] LRG FULL CALF KNEE BLACK 20-30 COMPRESSION [...] mg extended release tablet 24 HourIndications:CAD in ramona artery Take 1 tablet by mouth once [...] call MD 0 04/01/2020 Active Insulin Safety [place], Disp, (NOVOFINE AUTOCOVER) 30 gauge x /3Indications:Cecelia [...] at 10 am and no showed. RN News Reel Cameraman, Juanita Yoo, notified and she will attempt [...] No, referral made to Advance Care Plan Supervisor Sanding. Patient has identified Specific Treatment Preferences: No Sophia Méndez RN .................... 07/06/2011 2:30 PM] Specific limits to treatment preferences NOT identified: ASSUME FULL TREATMENT. Assessment & Plan (05/25/2012 12:51 PM DINKEY PRESS OPERATOR): Advance Care Planning: Disease-specific Session Leonid Leahy is a [facility] patient. His PCP is Leandra Limon at [facility] Advance care planning discussions were completed with Leonid. He identified his sister, Brittany Suggs, as his healthcare agent. Brittany was not present for ACP session. Understanding of Illness and Disease Dyer: Leonid identifies his medical condition as what [...] to live well: Daily visit to local [facility] for a pop and to visit and catch up in the news with locals. Leonid obed with serious challenges in his life: Support of his sister, only a phone call away. Helps manage critical access hospital services. Leonid identifies the following fears [...] and primary care provider. Hard Choices for [place] People booklet was sent to Leonid and his health care agent for review. Leonid requested all information be mailed to his sister and production underwriter to place call to sister to explain process. Leonid identified the following concerns during his advance care planning session: needing assistance at home to ensure he is managing his medications and treatments to keep going as is and stabilizing. Is followed by Clinic Math And Physics Instructor for needed services. Questions identified for his primary care provider: none Documents addressed during this advance care planning session: Health Care Directive completed and scanned into medical record. Statement of Treatment Preferences for advanced illness completed and scanned into the medical record. Recommendations/Plan: Loenid to review Advance Care Plan with Leonid's healthcare agent. Jail Keeper will be contacting Leonid's [facility] to explain services rendered, Leonid would benefit from: Home Care and/or Hospice when / if appropriate. [facility] services involved, [facility] supports coordination of medical asistance. [...] 2:27 PM Sophia Méndez RN RN Clinic [facility] In[facility] - [facility] [phone] Vitamin D deficiency 01/06/2011 011 Neuropathy 09/25/2010 [...] 176.9 kg (390 lb) 07/14/2022 6:10 PM DINKEY PRESS OPERATOR Height 167.6 cm (5' 6) 07/14/2022 6:10 PM DINKEY PRESS OPERATOR Body Mass Index 62.95 07/14/2022 6:10 PM DINKEY PRESS OPERATOR Plan of Treatment Health Maintenance Due Date [...] Kay García Medical Devices Implanted Type Area Overlock Operator Device Identifier Shelf Expiration Date Model / Serial / Lot Iol Posey +20 Tecnis Zcb00 - [id number] Implanted:Qty: 1 on 07/15/2022 by Tanner Fuentes MD at [facility] Left: Eye [employer] 06/24/2025 ZCB00 20.0 / [id number] / Iol Posey +20 Tecnis Zcb00 - [id number] Implanted:Qty: 1 on 08/19/2022 by Tanner Fuentes MD at [facility] Right: Eye [employer] 06/24/2025 ZCB00 20.0 / [id number] / Procedures Procedure Name Priority Date/Time Associated Diagnosis Comments LIPID PANEL Routine 03/13/2019 2:31 PM CDT Essential hypertriglyceridemia from Last 3 Months or Most Recently Relevant to Health Maintenance Results * (ABNORMAL) LIPID PANEL (03/13/2019 2:31 PM CDT) [facility] CHOLESTEROL,TOTAL 193 100 - 199 mg/dL 03/13/2019 9:25 PM CDT [facility] LABOR[facility] TRIGLYCERIDES 715(H) <150 mg/dL 03/13/2019 9:25 PM CDT [facility] HDL CHOLESTEROL 29(L) >40 mg/dL 9 9:25 PM CDT [facility] LAB[facility] NON-HDL CHOLESTEROL 164(H) <145 mg/dl 03/13/2019 9:25 PM CDT [facility] LAB[facility] CHOL/HDL RATIO 6.66(H) <4.50 03/13/2019 9:25 PM CDT [facility] LDL CHOLESTEROL 9 9:25 PM CDT [facility] Comment:Invalid LDL when Tri g >400. PROVIDER ORDERED STATUS RANDOM 03/13/2019 9:25 PM CDT [facility] Blood BLOOD SPECIMEN / Unknown Venipuncture / Unknown 03/13/2019 2:31 PM CDT 03/13/2019 2:31 PM CDT Suellen Sosa MD CHEMISTRY [facility] [employer] [facility] [address] [place] [address], from Last 3 Months or Most Recently Relevant to Health Maintenance Advance Directives Documents on File Type Date Recorded Patient Investigator Fraud Eduardo smiley POL 09/26/2014 3:45 PM AH [...] 9:30 PM 03/19/2009 6:17 PM Care Teams Molder Operator Relationship Specialty Start Date End Date Pcp, No . PCP - General 07/15/22 Alan Lopez MD Internal Medicine Internal Medicine 11/20/10 Nishant Watson MD [address] [place] [address] Endocrinology 08/15/13
== END 2024-02-19 12:12 | disposition home or self-care (01) ==
LOC: AMB 02-22 14:11
PROVIDERS: Visit Provider Emergency Medicine
DX: R51.9 Headache, unspecified (principal); R53.83 Other fatigue; R06.09 Other forms of dyspnea; R50.9 Fever, unspecified; M25.532 Pain in left wrist
CPT/HCPCS: A0425; A0427

== ENCOUNTER 2024-02-19 12:43 | Inpatient (IN) | payer MEDICARE, MEDICAID, SELFPAY ==
[2024-02-19] VITALS (38 sets, daily range): BP systolic 79–164; BP diastolic 43–89; PULSE 78–96; RESP 18–26; TEMP 36.6–39.8; O2SAT 89–96; BMI 74.9
--- NOTE | 2024-02-19 12:52 | CRLHL7_ITS ---
For Patients: As a result of the Cures Act, medical imaging exams and procedure reports are released immediately into your electronic medical record. You may view this report before your referring provider. If you have questions, please contact your health care provider. Indication: Fever and shortness of breath Comparison: Single-view chest April 06, 2023 Technique: Single AP view chest Findings: There is hyperinflation and chronic interstitial change. Mildly increased interstitial markings likely representing minimal pulmonary vascular congestion. There is no pneumothorax. No dense consolidation. Cardiac silhouette is mildly prominent. The bony thorax is grossly intact. Impression: Mildly increased interstitial markings consistent with pulmonary vascular congestion. Dictated by Ezekiel Saini MD @ 02/19/2024 2:18:01 PM (Electronically Signed)
--- NOTE | 2024-02-19 12:52 | CRLHL7_ITS ---
For Patients: As a result of the Cures Act, medical imaging exams and procedure reports are released immediately into your electronic medical record. You may view this report before your referring provider. If you have questions, please contact your health care provider. INDICATION: Fever, wrist pain, no trauma TECHNIQUE: Wrist radiograph 3 views left COMPARISON: None FINDINGS: Bone: No acute fractures or aggressive bone lesions are identified. Joint: The radiocarpal, carpal, and carpometacarpal joints are unremarkable in appearance. Soft tissue: Unremarkable. No radiopaque foreign bodies are seen. Severe vascular calcifications are noted. IMPRESSION: 1. No acute osseous injuries or abnormalities are noted. Dictated by: Gael Spann MD @ 02/19/2024 14:17:47 (Electronically Signed)
[2024-02-19 13:12] LABS: Lactate* 2.7 mmol/L (0.5-1.9)
--- NOTE | 2024-02-19 13:12 | ED_ITS ---
<Statement entered by Courtney Yu MD - 02/22/24 21:12> I did not participate in this document. No billing. 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 Patient seems mildly drowsy and is not a completely reliable historian. However history from the patient is that he has been healthy and well lately. He has no known ill contacts at his care center. He began to feel unwell late overnight last night into this morning. He felt achy. He felt weak. He was having an ache in his left wrist. He has no recent fall or left wrist trauma. It is not been red or swollen or bruised. Along with that he has also developed some shortness of breath, mild cough. He is not nauseous. No abdominal pain. No diarrhea. Urination has been normal. He has an continuous glucose monitor. Apparently glucoses were in the 200s this morning. Report from EMS is that he was complaining of left wrist pain. They put an ice pack in place but has not helped. He is also feeling mildly short of breath. Sats were in the low 90s on room air but that is apparently his baseline He is a resident of a care center in [place]. His Care Center was not able to print a copy his past medical history or med list. EMS believe it is up-to-date and the [facility] system. Related Data Home Medications ?Medication ?Instructions ?Recorded ?Confirmed amlodipine 10 mg tablet 10 mg PO DAILY 03/07/22 02/20/24 apixaban 5 mg tablet (Eliquis) 5 mg PO BID 03/07/22 02/20/24 aripiprazole 15 mg tablet 7.5 mg PO DAILY 03/07/22 02/20/24 aspirin 81 mg tablet,delayed 81 mg PO DAILY 03/07/22 02/21/24 release carbamazepine 200 mg tablet 200 mg PO BID 03/07/22 02/20/24 chlorthalidone 25 mg tablet 25 mg PO DAILY 03/07/22 02/20/24 ezetimibe 10 mg tablet 10 mg PO DAILY 03/07/22 02/20/24 hydralazine 50 mg tablet 50 mg PO QID 03/07/22 02/20/24 pantoprazole 40 mg tablet,delayed 40 mg PO DAILY 03/07/22 02/20/24 release polyethylene glycol 3350 17 17 g PO DAILY 03/07/22 02/21/24 gram/dose oral powder pregabalin 100 mg capsule 100 mg PO QAM 03/07/22 02/20/24 pregabalin 150 mg capsule 150 mg PO HS 03/07/22 02/20/24 torsemide 20 mg tablet 20 mg PO DAILY 03/07/22 02/20/24 venlafaxine 75 mg capsule,extended 225 mg PO DAILY 03/07/22 02/20/24 release 24 hr acetaminophen 500 mg tablet 500 mg PO Q6H 06/13/22 02/21/24 albuterol sulfate 90 mcg/actuation 1 inh inhalation Q4H PRN 06/13/22 02/21/24 aerosol inhaler bronchospasm diphenhydramine HCl 50 mg capsule 50 mg PO Q6H PRN itching 06/13/22 02/21/24 (Banophen) icosapent ethyl 1 gram capsule 2 g PO BID 06/13/22 02/21/24 (Vascepa) insulin regular hum U-500 conc 500 100 unit subcut TID 06/13/22 02/20/24 unit/mL(3 mL) subcut pen (Humulin R U-500 (Conc) Insulin Kwikpen) ketoconazole 2 % shampoo 1 applic topical Q3D 06/13/22 02/21/24 loperamide 2 mg capsule 2 mg PO Q6H PRN loose stool 06/13/22 02/21/24 nystatin 100,000 unit/gram topical 1 applic topical BID PRN 06/13/22 02/20/24 powder sennosides 8.6 mg tablet (senna) 8.6 mg PO DAILY 06/13/22 02/21/24 clotrimazole 1 % topical cream 1 applic topical BID 07/25/22 02/21/24 ergocalciferol (vitamin D2) 1,250 50,000 unit PO WE@07/25/22 02/21/24 mcg (50,000 unit) capsule insulin glargine 100 unit/mL (3 30 unit subcut BID 12/27/23 02/20/24 mL) subcutaneous pen (Basaglar KwikPen U-100 Insulin) isosorbide mononitrate 60 mg 60 mg PO DAILY 12/27/23 02/20/24 tablet,extended release 24 hr metoprolol succinate 200 mg 200 mg PO DAILY 12/27/23 02/20/24 tablet,extended release 24 hr semaglutide 1 mg/dose (4 mg/3 mL) 1 mg subcut .weekly 12/27/23 02/21/24 subcutaneous pen injector (Ozempic) carvedilol 25 mg tablet 25 mg PO DAILY 02/20/24 02/20/24 potassium chloride 20 mEq 40 meq PO BID 02/20/24 02/21/24 tablet,extended release(part/cryst) rosuvastatin 40 mg tablet 40 mg PO HS 02/20/24 02/20/24 Previous Rx's ?Medication ?Instructions ?Recorded hydrocortisone 2.5 % topical cream 1 applic topical BID PRN #30 grams 09/14/22 ammonium lactate 12 % lotion 1 applic topical BID #225 grams 04/01/23 cyclobenzaprine 10 mg tablet 10 mg PO HS PRN muscle spasm #20 12/27/23 tabs doxycycline hyclate 100 mg capsule 100 mg PO BID #10 caps 02/21/24 Allergies Allergy/AdvReac Type Severity Reaction Status Date / Time lisinopril Allergy Mild Cough Verified 02/19/24 12:49 metformin AdvReac Verified 02/19/24 12:49 [facility] Medical History (Updated 02/21/24 @ 11:07 by Eli Workman PA-C) Anemia in chronic kidney disease (CKD) ?N18.9 - Chronic kidney disease, unspecified (ICD-10) ?D63.1 - Anemia in chronic kidney disease (ICD-10) Chronic kidney disease (CKD), stage IV (severe) ?N18.4 - Chronic kidney disease, stage 4 (severe) (ICD-10) DISH (diffuse idiopathic skeletal hyperostosis) ?M48.10 - Ankylosing hyperostosis [[place]], site unspecified (ICD-10) Edema ?R60.9 - Edema, unspecified (ICD-10) Neuropathy ?G62.9 - Polyneuropathy, unspecified (ICD-10) Learning disability ?F81.9 - Developmental disorder of scholastic skills, unspecified (ICD-10) Insomnia ?G47.00 - Insomnia, unspecified (ICD-10) Metabolic syndrome ?E88.810 - Metabolic syndrome (ICD-10) Sensorineural hearing loss (SNHL) of both ears ?H90.3 - Sensorineural hearing loss, bilateral (ICD-10) Tinnitus ?H93.19 - Tinnitus, unspecified ear (ICD-10) Hypercholesterolemia ?E78.00 - Pure hypercholesterolemia, unspecified (ICD-10) Insulin dependent diabetes mellitus Recurrent deep vein thrombosis (DVT) ?I82.409 - Acute embolism and thrombosis of unspecified deep veins of unspecified lower extremity (ICD-10) Hypertension ?I10 - Essential (primary) hypertension (ICD-10) Coronary artery disease ?I25.10 - Atherosclerotic heart disease of [place] coronary artery without angina pectoris (ICD-10) Hypertriglyceridemia ?E78.1 - Pure hyperglyceridemia (ICD-10) Epilepsy ?G40.909 - Epilepsy, unspecified, not intractable, without status epilepticus (ICD-10) TASHI on CPAP ?G47.33 - Obstructive sleep apnea (adult) (pediatric) (ICD-10) ?Z99.89 - Dependence on other enabling machines and devices (ICD-10) Tachypnea ?R06.82 - Tachypnea, not elsewhere classified (ICD-10) Fever ?R50.9 - Fever, unspecified (ICD-10) CKD (chronic kidney disease) ?N18.9 - Chronic kidney disease, unspecified (ICD-10) Gout ?M10.9 - Gout, unspecified (ICD-10) Major depressive disorder ?F32.9 - Major depressive disorder, single episode, unspecified (ICD-10) Type 2 diabetes mellitus ?E11.9 - Type 2 diabetes mellitus without complications (ICD-10) Obesity ?E66.9 - Obesity, unspecified (ICD-10) Surgical History History of cholecystectomy ?Z90.49 - Acquired absence of other specified parts of digestive tract (ICD- 10) Social History Narrative: Lives in a assisted in [place], [place]. Sisters Brittany Suggs ([phone]) and Blanka Mcduffie ([phone]) listed as contacts and medical decision makers. Paperwork from assisted indicates Full Code status. What is your current living situation?: I presently have a place to live Problems where you live: no known problems Problems where you live details: none In the past 12 months, utilities in danger of being shut off: no In past 12 months, lack of transportation kept you from medical appts, meetings, work, or getting things needed for daily living: no In the past 12 mos, have been you worried that your food would run out before you had money to buy more?: never true In the past 12 mos, the food you bought just didn't last and you didn't have money to buy more?: never true Highest level of school completed/degree received: 12th grade, no diploma Smoking Status: Never smoker Do you use any of these nicotine containing products: None Second hand tobacco smoke exposure: No How often do you have a drink containing alcohol: never How often do you have six or more drinks on one occasion: Never AUDIT-C Alcohol total score: 0 Non-prescribed substance use: denies use Caffeine: No How often does anyone, including family, friends and others, physically hurt you : never How often does anyone, including family, friends and others, insult or talk down to you: never How often does anyone, including family, friends and others, threaten you with harm: never How often does anyone, including family, friends and others, scream or curse at you: never service: No Exam Narrative: Exam Narrative: Constitutional: Appears well-developed and well-nourished. Alert. Conversant but seems a little bit drowsy and passive. Vague historian unclear if this is baseline or likely reflects some degree of delirium. Feels warm to the touch. HENT: Head: Atraumatic. Nose: Nose normal. Mouth/Throat: Oral mucosa is clear and moist. no trismus. Pharynx normal. Tonsils symmetric. No tonsillar enlargement, erythema, or exudate. Mallampati grade 3 Eyes: Conjunctivae normal. EOM normal. Pupils equal, round, and reactive to light. No scleral icterus. Neck: Normal range of motion. Neck supple. No tracheal deviation present. No visible JVD Cardiovascular: Normal rate, regular rhythm. No gallop. No friction rub. No murmur heard. Symmetric radial artery pulses Pulmonary/Chest: Too heavy and weak to sit up for posterior lung exam. Effort normal. No stridor. No respiratory distress. No wheezes. No rales. No rhonchi . No tenderness. Abdominal: Soft. Bowel sounds normal. No distension. He has an upper midline bulge when he tries to sit up that probably indicates a chronic ventral hernia. No other mass. No tenderness. No rebound. No guarding. Musculoskeletal: RUE: Normal range of motion. No tenderness. No deformity LUE: Normal range of motion. No tenderness. No deformity. Complains of left wrist pain. However he has no tenderness to palpation. No erythema. His wrist does not feel any warmer than the rest of his body. No crepitus. He is able to flex and extend. He has normal pronation and supination of the forearm. No tenderness over the thumb, thenar eminence, body of the hand, or fingers. RLE: Normal range of motion. No edema. No tenderness. No deformity LLE: Normal range of motion. No edema. No tenderness. No deformity Lymph: No ascending lymphangitis in the left arm.. Neurological: Awake but seems perhaps slightly drowsy. oriented to person, place, and time. Normal strength. No focal strength deficits. Overall somewhat weak. Unable to sit himself up in bed. CN II-VII intact. No sensory deficit. GCS eye subscore is 4. GCS verbal subscore is 5. GCS motor subscore is 6. Normal coordination Skin: Skin is warm and dry. No rash noted. No pallor. Normal capillary refill. Psychiatric: Normal mood. Normal affect. Const: Vital Signs, click to edit/add: Vital Signs - 24 hr 02/20/24 15:27 02/20/24 15:27 02/20/24 17:26 Temperature 98.2 F Pulse Rate [Right Pulse Oximeter] 83 83 Respiratory Rate 26 H 26 H Blood Pressure [Le ft FA] 144/61 H Pulse Oximetry 94 94 Oxygen Delivery Me thod Room Air 02/20/24 20:03 02/20/24 21:30 02/20/24 23:26 Temperature 98.3 F 97.5 F L Pulse Rate [Right Pulse Oximeter] 76 79 88 Respiratory Rate 24 24 Blood Pressure [Le ft FA] 155/62 H 159/61 H Pulse Oximetry 96 100 Oxygen Delivery Me thod Room Air Room Air 02/21/24 02:15 02/21/24 07:00 02/21/24 07:00 Temperature 97.5 F L 98.8 F Pulse Rate [Right Pulse Oximeter] 88 82 82 Respiratory Rate 22 20 20 Blood Pressure [Le ft FA] 160/71 H 148/58 H Pulse Oximetry 94 94 Oxygen Delivery Me thod Room Air Room Air Course Vital Signs Vital signs: Initial Vital Signs Temperature 103.7 F H 02/19/24 12:46 Temperature Source Temporal Artery Scan 02/19/24 12:46 Pulse Rate 92 02/19/24 12:46 Pulse Rhythm Regular 02/19/24 12:46 Respiratory Rate 18 02/19/24 12:46 Blood Pressure 120/62 02/19/24 12:46 Blood Pressure Mean 81 02/19/24 12:46 Blood Pressure Position Supine 02/19/24 12:46 Pulse Oximetry 90 02/19/24 12:46 Oxygen Delivery Method Room Air 02/19/24 12:46 Vital Signs Temperature 103.7 F H 02/19/24 12:46 Pulse Rate 92 02/19/24 12:46 Respiratory Rate 18 02/19/24 12:46 Blood Pressure 120/62 02/19/24 12:46 Pulse Oximetry 90 02/19/24 12:46 Oxygen Delivery Method Room Air 02/19/24 12:46 Temperature 98.8 F 02/21/24 07:00 Pulse Rate 82 02/21/24 07:00 Respiratory Rate 20 02/21/24 07:00 Blood Pressure 148/58 H 02/21/24 07:00 Pulse Oximetry 94 02/21/24 07:00 Oxygen Delivery Method Room Air 02/21/24 07:00 Medications Administered Medications: Discontinued Medications Generic Name Dose Route Start Last Admin Trade Name Freq PRN Reason Stop Dose Admin Acetaminophen 1,000 mg 02/19/24 12:52 02/19/24 13:18 Acetaminophen 500 Mg Tablet PO 02/19/24 12:53 1,000 mg ONCE ONE Administration Amlodipine Besylate 10 mg 02/20/24 16:00 02/21/24 08:36 Amlodipine 10 Mg Tablet PO 10 mg DAILY SOILA Administration Apixaban 5 mg 02/19/24 21:00 02/21/24 08:36 Apixaban 5 Mg Tablet PO 5 mg BID SOILA Administration Aspirin 81 mg 02/20/24 09:00 02/21/24 08:36 Aspirin 81 Mg Tablet Ec PO 81 mg DAILY SOILA Administration Carbamazepine 200 mg 02/19/24 21:00 02/21/24 08:36 Carbamazepine 200 Mg Tablet PO 200 mg BID SOILA Administration Carvedilol 12.5 mg 02/19/24 18:00 02/19/24 18:38 Carvedilol 25 Mg Tablet PO 12.5 mg Q12H SOILA Administration Carvedilol 25 mg 02/20/24 09:00 02/21/24 08:36 Carvedilol 25 Mg Tablet PO 25 mg Q12H SOILA Administration Carvedilol 12.5 mg 02/19/24 22:50 02/20/24 00:19 Carvedilol 6.25 Mg Tablet PO 02/19/24 22:51 12.5 mg ONCE ONE Administration Sodium Chloride 1,000 mls @ 1,000 mls/hr 02/19/24 13:30 02/19/24 14:33 0.9 % Sodium Chloride 1000 Ml IV 02/19/24 14:29 Infused .Q1H SOILA Infusion Sodium Chloride 1,000 mls @ 125 mls/hr 02/19/24 17:17 02/20/24 07:25 0.9 % Sodium Chloride 1000 Ml IV 02/20/24 01:16 Infused .Q8H SOILA Infusion Ceftriaxone Sodium 2 gm/ 100 mls @ 200 mls/hr 02/19/24 18:00 02/20/24 18:31 Sodium Chloride IVPB Infused Q24H SOILA Infusion Vancomycin/PEG/NADA/Lysine/Water 2 gm in 400 mls @ 200 mls/hr 02/19/24 18:15 02/20/24 08:10 Vancomycin 2 Gm/400 Ml IVPB Not Given Q12H SOILA Vancomycin/PEG/NADA/Lysine/Water 2 gm in 400 mls @ 200 mls/hr 02/19/24 19:30 02/21/24 07:21 Vancomycin 2 Gm/400 Ml IVPB 200 mls/hr Q12H SOILA Administration Insulin Aspart 0 unit 02/19/24 18:00 02/20/24 17:15 Insulin Aspart 100 Unit/Ml SUBCUT 15 unit TIDWM SOILA Administration Protocol Insulin Aspart 10 unit 02/20/24 18:00 02/21/24 12:23 Insulin Aspart 100 Unit/Ml SUBCUT 10 unit TIDWM SOILA Administration Insulin Aspart 15 unit 02/20/24 21:44 02/20/24 22:25 Insulin Aspart 100 Unit/Ml SUBCUT 02/20/24 21:45 15 unit ONCE ONE Administration Insulin Aspart 0 unit 02/21/24 08:00 02/21/24 12:24 Insulin Aspart 100 Unit/Ml SUBCUT 12 unit TIDWM SOILA Administration Protocol Insulin Glargine 30 unit 02/19/24 21:00 02/19/24 22:33 Insulin Glargine,Hum.Rec.Anlog 100 Unit/Ml Insuln.Pen SUBCUT 30 unit HS SOILA Administration Insulin Glargine 45 unit 02/20/24 21:00 02/20/24 21:12 Insulin Glargine,Hum.Rec.Anlog 100 Unit/Ml Insuln.Pen SUBCUT 45 unit HS SOILA Administration Omeprazole 40 mg 02/20/24 09:00 02/21/24 08:36 Omeprazole [address] PO 40 mg DAILY SOILA Administration Rosuvastatin Calcium 40 mg 02/19/24 18:00 02/20/24 17:46 Rosuvastatin Calcium 10 Mg Tablet PO 40 mg QPM SOILA Administration Sodium Chloride 5 ml 02/19/24 17:17 02/20/24 17:47 Sodium Chloride 0.9 % (Flush) 10 Ml Syringe IVF 5 ml .FLUSH PRN Administration Sodium Chloride 5 ml 02/19/24 21:00 02/21/24 08:37 Sodium Chloride 0.9 % (Flush) 10 Ml Syringe IVF 5 ml BID SOILA Administration Sodium Chloride 250 ml 02/20/24 05:30 02/21/24 07:21 0.9 % Sodium Chloride 250 Ml IV 250 ml Q24H SOILA Administration Medical Decision Making MDM Narrative Medical decision making narrative: This is a 63-year-old gentleman brought to the ER by EMS from his care center for evaluation of fever, generalized weakness. Differential for his fever is broad. He is feeling mildly short of breath but does not have much cough. Symptoms only began this morning. COVID and influenza swab is negative. Chest x-ray negative for pneumonia. Chest x-ray does show possible findings of pulmonary vascular congestion but I think that may be related to his body habitus. CHF would not be could triggering a fever of 103.9. Is not have any abdominal pain or flank pain to suggest intra-abdominal infection. I ordered urinalysis to check for possible UTI but he has not yet provided urine sample at the time of this dictation. Blood cultures pending. He does complain of some atraumatic left wrist pain. On my exam there is no palpable localized warmth to the wrist, no redness, and no palpable joint effusion, although exam for infusion would be limited by his body habitus. X- rays of the wrist are negative for fracture. Inflammatory markers show normal white count, mildly elevated CRP, normal procalcitonin. I do not think there is a septic joint here and would not be able to tap this patient's wrist here in the ER given his body habitus. Discussed with Orthopedics, Dr. Mason 10. At this point he and I agree that at this point there is no clear evidence to say that ortho needs to come directly into the ER to see the patient or to perform a fluoro guided arthrocentesis. He is hemodynamically stable but was febrile when he arrived. Fever came down with Tylenol. Initial venous lactic elevated at 2.7 but after 1 L of IV fluids it is improved down to 1.9. Blood pressure remained stable and normal. Pulse rate improved from the 90s to 80s. At this point I do think the patient requires hospitalization for monitoring since we do not have a clear source for fever. At this point would be stable for admission to the medical floor. Discussed with our hospitalist, Dr. Yu. She accepts for admission. Lab Data Labs: Lab Results 02/19/24 02/19/24 02/19/24 Range/Units 13:05 13:06 15:07 WBC 7.79 (4.50-11.00) K/uL RBC 4.90 (4.30-5.90) m/uL Hgb 13.9 (13.5-17.5) gm/dL Hct 41.2 (37.0-53.0) % MCV 84 (80-100) fL MCH 28 (26-34) pg MCHC 34 (32-36) gm/dL RDW Coeff of Kaylen 14.0 (11.5-15.5) % Plt Count 130 L (140-440) K/uL Neut % (Auto) 80.3 H (42.0-72.0) % Lymph % (Auto) 13.1 L (20-44) % Bacon % (Auto) 4.5 (0.0-11.0) % Eos % (Auto) 1.5 (0.0-7.0) % Baso % (Auto) 0.3 (0.0-3.0) % Neut # (Auto) 6.30 (1.7-7.0) K/uL Lymph # (Auto) 1.00 (0.90-2.90) K/uL Bacon # (Auto) 0.40 (0.00-0.90) K/UL Eos # (Auto) 0.12 (0.00-0.50) K/uL Baso # (Auto) 0.02 (0.00-0.30) K/uL Abs Immat Gran (auto) 0.02 (0.00-0.30) K/uL Imm/Tot Granulo (auto) 0.3 % ESR (2-15) mm/hr Sodium 137 (135-149) mmol/L Potassium 3.6 (3.6-5.1) mmol/L Chloride 97 (96-114) mmol/L Carbon Dioxide 29 (20-32) mmol/L Anion Gap 11 (7-15) mEq/L BUN 27 (7-30) mg/dL Creatinine 1.1 (0.5-1.5) mg/dL Estimated Creat Clear 59.02 Estimated GFR 75 ml/min Glucose 253 H (60-115) mg/dL Lactate 2.7 H 1.9 (0.5-1.9) mmol/L Calcium 9.0 (8.4-10.6) mg/dL Magnesium (1.5-2.6) mg/dL Total Bilirubin (0.1-1.5) mg/dL AST (12-35) U/L ALT (4-50) U/L Alkaline Phosphatase (40-150) U/L Troponin I 0.01 (0.01-0.04) ng/mL C-Reactive Protein 1.7 H (0.5-1.0) mg/dL Total Protein (6.0-8.3) g/dL Albumin (3.3-5.0) g/dL Procalcitonin 0.22 (<0.50) ng/mL Urine Color (Yellow) Urine Appearance (Clear) Urine pH (5.0-8.5) Ur Specific [place] (1.000-1.030) Urine Protein (Negative) Urine Glucose (UA) (Negative) Urine Ketones (Negative) Urine Blood (Negative) Urine Nitrite (Negative) Urine Bilirubin (Negative) Urine Urobilinogen (0.2-1.0) Ur Leukocyte Esterase (Negative) Urine RBC (0-2) Urine WBC (0-5) Ur Squamous Epith Cells (None-Few) Urine Bacteria (None) SARS-CoV-2 (PCR) Negative SARS-CoV-2 (Negative) Influenza Type A (PCR) Negative PCR FLU A (Negative) Influenza Type B (PCR) Negative PCR FLU B (Negative) 02/19/24 02/20/24 02/20/24 Range/Units 18:20 05:42 16:01 WBC 7.28 (4.50-11.00) K/uL RBC 4.31 (4.30-5.90) m/uL Hgb 12.5 L (13.5-17.5) gm/dL Hct 36.6 L (37.0-53.0) % MCV 85 (80-100) fL MCH 29 (26-34) pg MCHC 34 (32-36) gm/dL RDW Coeff of Kaylen 14.4 (11.5-15.5) % Plt Count 124 L (140-440) K/uL Neut % (Auto) 71.5 (42.0-72.0) % Lymph % (Auto) 20.2 (20-44) % Bacon % (Auto) 6.5 (0.0-11.0) % Eos % (Auto) 1.0 (0.0-7.0) % Baso % (Auto) 0.3 (0.0-3.0) % Neut # (Auto) 5.21 (1.7-7.0) K/uL Lymph # (Auto) 1.47 (0.90-2.90) K/uL Bacon # (Auto) 0.50 (0.00-0.90) K/UL Eos # (Auto) 0.07 (0.00-0.50) K/uL Baso # (Auto) 0.02 (0.00-0.30) K/uL Abs Immat Gran (auto) 0.04 (0.00-0.30) K/uL Imm/Tot Granulo (auto) 0.5 % ESR 71 H (2-15) mm/hr Sodium 133 L (135-149) mmol/L Potassium 3.7 (3.6-5.1) mmol/L Chloride 98 (96-114) mmol/L Carbon Dioxide 28 (20-32) mmol/L Anion Gap 7 (7-15) mEq/L BUN 28 (7-30) mg/dL Creatinine 1.0 (0.5-1.5) mg/dL Estimated Creat Clear 64.92 Estimated GFR 84 ml/min Glucose 328 H (60-115) mg/dL Lactate 1.6 (0.5-1.9) mmol/L Calcium 7.8 L (8.4-10.6) mg/dL Magnesium 1.9 (1.5-2.6) mg/dL Total Bilirubin 0.7 (0.1-1.5) mg/dL AST 47 H (12-35) U/L ALT 45 (4-50) U/L Alkaline Phosphatase 111 (40-150) U/L Troponin I (0.01-0.04) ng/mL C-Reactive Protein 16.6 H (0.5-1.0) mg/dL Total Protein 6.3 (6.0-8.3) g/dL Albumin 3.5 (3.3-5.0) g/dL Procalcitonin (<0.50) ng/mL Urine Color Yellow (Yellow) Urine Appearance Clear (Clear) Urine pH 5.5 (5.0-8.5) Ur Specific [place] 1.020 (1.000-1.030) Urine Protein Negative (Negative) Urine Glucose (UA) Trace A (Negative) Urine Ketones Negative (Negative) Urine Blood Negative (Negative) Urine Nitrite Negative (Negative) Urine Bilirubin Negative (Negative) Urine Urobilinogen 1.0 (0.2-1.0) Ur Leukocyte Esterase Negative (Negative) Urine RBC 0-2 (0-2) Urine WBC 0-2 (0-5) Ur Squamous Epith Cells Few (None-Few) Urine Bacteria None (None) SARS-CoV-2 (PCR) (Negative) Influenza Type A (PCR) (Negative) Influenza Type B (PCR) (Negative) 02/21/24 Range/Units 05:52 WBC 5.71 (4.50-11.00) K/uL RBC 4.44 (4.30-5.90) m/uL Hgb 12.8 L (13.5-17.5) gm/dL Hct 37.6 (37.0-53.0) % MCV 85 (80-100) fL MCH 29 (26-34) pg MCHC 34 (32-36) gm/dL RDW Coeff of Kaylen (11.5-15.5) % Plt Count 122 L (140-440) K/uL Neut % (Auto) (42.0-72.0) % Lymph % (Auto) (20-44) % Bacon % (Auto) (0.0-11.0) % Eos % (Auto) (0.0-7.0) % Baso % (Auto) (0.0-3.0) % Neut # (Auto) (1.7-7.0) K/uL Lymph # (Auto) (0.90-2.90) K/uL Bacon # (Auto) (0.00-0.90) K/UL Eos # (Auto) (0.00-0.50) K/uL Baso # (Auto) (0.00-0.30) K/uL Abs Immat Gran (auto) (0.00-0.30) K/uL Imm/Tot Granulo (auto) % ESR (2-15) mm/hr Sodium 135 (135-149) mmol/L Potassium (3.6-5.1) mmol/L Chloride (96-114) mmol/L Carbon Dioxide (20-32) mmol/L Anion Gap (7-15) mEq/L BUN (7-30) mg/dL Creatinine (0.5-1.5) mg/dL Estimated Creat Clear Estimated GFR ml/min Glucose (60-115) mg/dL Lactate (0.5-1.9) mmol/L Calcium (8.4-10.6) mg/dL Magnesium (1.5-2.6) mg/dL Total Bilirubin (0.1-1.5) mg/dL AST (12-35) U/L ALT (4-50) U/L Alkaline Phosphatase (40-150) U/L Troponin I (0.01-0.04) ng/mL C-Reactive Protein 20.2 H (0.5-1.0) mg/dL Total Protein (6.0-8.3) g/dL Albumin (3.3-5.0) g/dL Procalcitonin (<0.50) ng/mL Urine Color (Yellow) Urine Appearance (Clear) Urine pH (5.0-8.5) Ur Specific [place] (1.000-1.030) Urine Protein (Negative) Urine Glucose (UA) (Negative) Urine Ketones (Negative) Urine Blood (Negative) Urine Nitrite (Negative) Urine Bilirubin (Negative) Urine Urobilinogen (0.2-1.0) Ur Leukocyte Esterase (Negative) Urine RBC (0-2) Urine WBC (0-5) Ur Squamous Epith Cells (None-Few) Urine Bacteria (None) SARS-CoV-2 (PCR) (Negative) Influenza Type A (PCR) (Negative) Influenza Type B (PCR) (Negative) Imaging Data Chest x-ray: Attestation: I have reviewed the pertinent imaging results. Radiologist's impression: Impression: Mildly increased interstitial markings consistent with pulmonary vascular congestion. XR left wrist: Attestation: I have reviewed the pertinent imaging results. Radiologist's impression: IMPRESSION: 1. No acute osseous injuries or abnormalities are noted. ECG Data Attestation: I personally reviewed and interpreted this ECG as follows: Interpretation: Normal sinus rhythm Rate: 92 KS: 198 QRS axis: Normal axis. No pathologic Q-waves. ST segment/T wave: No ST segment elevation or depression. Nonspecific T-wave flattening lead 1, aVL, V2, V1 QTc: 455 Discharge Plan Discharge Clinical Impression: Fever, Sepsis, Acute pain of left wrist Condition: Improved Activity Level: Activity as Tolerated Discharge Diet: Diabetic Admit to: Assisted Living Discharge Potential: Poor Length of Stay: >90 days Can use facility standing orders?: Yes Code Status: Full Code TEDs: Bilateral Knee Rehab Potential: Fair Oxygen: No Urinary Catheter: No Orders are good >30 days: No Signature: SHOSHANA Richardson, PA-[facility]
[2024-02-19 13:16] LABS: Basophils Absolute Auto 0.02 K/uL (0.00-0.30); Basophils Percent Auto 0.3 % (0.0-3.0); Eosinophils Absolute Auto 0.12 K/uL (0.00-0.50); Eosinophils Percent Auto 1.5 % (0.0-7.0); Hematocrit 41.2 % (37.0-53.0); Hemoglobin* 13.9 gm/dL (13.5-17.5); Immature Granulocytes Abs Auto 0.02 K/uL (0.00-0.30); Immature Granulocytes Pct Auto 0.3 %; Lymphocytes Percent Auto 13.1 % (20-44); Mean Corpuscular HGB Conc 34 gm/dL (32-36); Mean Corpuscular Hemoglobin 28 pg (26-34); Mean Corpuscular Volume 84 fL (80-100); Monocytes Percent Auto 4.5 % (0.0-11.0); Neutrophils Percent Auto 80.3 % (42.0-72.0); Platelet Count* 130 K/uL (140-440); White Blood Count* 7.79 K/uL (4.50-11.00)
[2024-02-19] MEDS: ACETAMINOPHEN 500 MG TABLET 1000 MG PO (13:18)
--- OUTSIDE RECORDS SUMMARY | 2024-02-19 13:20 | XMS_ITS | CCD ---
Author Name Cecilio Durham feliberto Address [address] [facility] [address] [place] [address] Phone Organization [facility] Phone Care Team Providers Care Adult Nurse Practitioner Name Role Phone Arpit VIDALKeeganHarrison Primary Care Provider Leona vailable Harrison [facility] U navailable Summary Purpose DataExchange Insurance Providers Payer name Policy type / Coverage type Covered democrat ID Effective Begin Date Effective End Date Medicare [place] Medicare Part B [id number] Unknown Unknown Medicaid [place] Medicare Part B [id number] Unknown Unknown Family history Sister Brittany Suggs [...] Unknown Custodial 09/03/[address]: 5631642 Non-Smoker / No History of Smoking 09/02/[address]: 074904598 No Alcohol Consum ption 09/02/2020 Allergies, Adverse Reactions, Alerts Substance Reaction Codes Entered Date Inactivated Date Status * NO KNOWN FOOD ALLERGIES Unknown 07/13/2023 No Inactive Date Active LISINOPRIL RxNorm: 09575 02/12/2020 No Inactive Da te Active Metformin [...] E78. 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, angina presence unspecified ICD-10: I25.10 ICD-9: [...] immunization ICD-10: Z23 ICD-9: V03.89 02/10/2022 Resolved [facility] (current) use of insulin ICD-10: Z79.4 02/10 [...] Fill Instructions cephalexin 500 mg capsule RxNorm: 795139 Take 1 Capsule(s) Oral QID 12/17/19 24 024 Inactive cephalexin 500 mg capsule RxNorm: 003551 Take 1 Capsule(s) Oral QID 12/17/19 24 024 Inactive acetaminophen 500 mg tablet RxNorm: 500026 (MAX APAP:4GM/24HR) Take 1 Tablet(s) Oral TID as needed for pain 12/10/19 24 024 Active torsemide 20 mg tablet RxNorm: 042407 Take 1 Tablet(s) Oral QD 10/26/19 24 024 Inactive potassium chloride ER 20 mEq tablet,extended release RxNorm: 395666 Take 2 Tablet(s) Oral BID 10/26/19 24 025 Active torsemide 20 mg tablet RxNorm: 679078 Take 1 Tablet(s) Oral QD 10/26/19 24 024 Inactive potassium chloride ER 20 mEq tablet,extended release RxNorm: 474952 Take 2 Tablet(s) Oral BID 10/26/19 24 024 Inactive Artificial Tears (PF) 0.1 %-0.3 % drops in a dropperette RxNorm: 950259 Apply 1-2 Drop(s) Both eyes BID as needed 09/28/19 24 025 Active erythromycin 5 mg/gram (0.5 %) eye ointment RxNorm: 445671 Apply 1 Application Both eyes QHS every night at bedtime Instill ~1 cm ribbon into affected eye 09/28/19 Inactive Artificial Tears (PF) 0.1 %-0.3 % drops in a dropperette RxNorm: 284573 Apply 1-2 Drop(s) Both eyes BID as needed 09/28/19 Inactive erythromycin 5 mg/gram (0.5 %) eye ointment RxNorm: 091614 Apply 1 Application Both eyes QHS every night at bedtime Instill ~1 cm ribbon into affected eye 09/28/19 Inactive acetaminophen 500 mg tablet RxNorm: 339708 (MAX APAP:4GM/24HR) Take 1 Tablet(s) Oral TID as needed for pain 09/24/19 Inactive carvedilol 25 mg tablet RxNorm: 448074 Take 1 Tablet(s) Oral QD 09/08/19 24 No Stop Date Active pregabalin 100 mg capsule RxNorm: 419257 Take 1 Capsule(s) Oral QAM every morning 09/07/19 24 Inactive rosuvastatin 40 mg tablet RxNorm: 573707 Take 1 Tablet(s) Oral QPM every evening 07/13/19 24 No Stop Date Active ezetimibe 10 mg tablet RxNorm: 999468 Take 1 Tablet(s) Oral QD 07/13/19 24 No Stop Date Active bisacodyl 10 mg rectal suppository RxNorm: 300799 Insert 1 Suppository Rectal QD as needed 07/13/19 24 No Stop Date Active polyethylene glycol 3350 17 gram/dose oral powder RxNorm: 898736 Take 17 Gram(s) Oral BID as needed mix in 4-8ox water 07/13/19 24 No Stop Date Active ketoconazole 2 % shampoo RxNorm: 718323 Apply 1 Application Topical UD as directed 07/13/19 24 No Stop Date Active aripiprazole 15 mg tablet RxNorm: 377883 Take 1/2 Tablet(s) Oral QD 07/13/19 24 No Stop Date Active Ozempic 1 mg/dose (4 mg/3 mL) subcutaneous pen injector RxNorm: 6598488 Inject 1 Milligram(s) Subcutaneous QW once a week 07/13/19 24 No Stop Date Active Guaifenesin AC 10 mg-100 mg/5 mL oral liquid RxNorm: 006735 Take 10 Milliliter(s) Oral Q4H every four hours as needed 07/13/19 24 No Stop Date Active isosorbide mononitrate ER 60 mg tablet,extended release 24 hr RxNorm: 741270 Take 1 Tablet(s) Oral QD 07/13/19 24 No Stop Date Active ammonium lactate 12 % topical cream RxNorm: 171027 Apply 1 Application Topical BID 07/13/19 24 No Stop Date Active hydrocortisone 2.5 % topical cream RxNorm: 814104 Apply 1 Application Topical BID as needed 07/13/19 24 No Stop Date Active rosuvastatin 20 mg sprinkle capsule RxNorm: 6249351 Take 1 Capsule(s) Oral QD 07/13/19 24 No Stop Date Active Vascepa 1 gram capsule RxNorm: 0467862 Take 2 Capsule(s) Oral BID 07/13/19 24 No Stop Date Active venlafaxine ER 75 mg capsule,extended release 24 hr RxNorm: 830259 Take 3 Capsule(s) Oral QD 07/13/19 24 No Stop Date Active Basaglar KwikPen U-100 Insulin 100 unit/mL (3 mL) subcutaneous RxNorm: 1727704 Inject 30U SubQ twice daily 07/07/19 24 025 Active Please dispense one month supply. Basaglar KwikPen U-100 Insulin 100 unit/mL (3 mL) subcutaneous RxNorm: 8497390 Inject 30U SubQ twice daily 07/07/19 24 024 Inactive Please dispense one month supply. pregabalin 150 mg capsule RxNorm: 210940 Take 1 Capsule(s) Oral QHS every night at bedtime 07/05/19 24 024 Inactive pregabalin 150 mg capsule RxNorm: 273950 Take 1 Capsule(s) Oral QHS every night at bedtime 07/05/19 24 024 Inactive polyethylene glycol 3350 17 gram/dose oral powder RxNorm: 703467 Take 1 Packet Oral QD as needed (1 packet = 17g) mix with 4-8oz of liquid 06/15/19 24 024 Inactive bisacodyl 10 mg rectal suppository RxNorm: 098514 Insert one suppository per rectum once daily as needed for constipation 06/15/19 24 024 Inactive bisacodyl 10 mg rectal suppository RxNorm: 800873 Insert one suppository per rectum once daily as needed for constipation 06/15/19 24 024 Inactive pregabalin 100 mg capsule RxNorm: 121094 Take 1 Capsule(s) Oral QAM every morning 04/27/20 23 024 Inactive Levemir FlexPen 100 unit/mL (3 mL) solution subcutaneous insulin pen RxNorm: 730189 Inject 30 Unit(s) Subcutaneous BID 04/27/20 23 024 Inactive rosuvastatin 40 mg tablet RxNorm: 356354 Take 1 Tablet(s) Oral QPM every evening 04/16/20 024 Inactive D/C rosuvastatin 20mg venlafaxine ER 75 mg capsule,extended release 24 hr RxNorm: 642609 Take 3 Capsule(s) Oral QD 04/14/20 23 023 Inactive pregabalin 100 mg capsule RxNorm: 884095 Take 1 Capsule(s) Oral QAM every morning [...] meter clotrimazole 1 % topical cream RxNorm: 832271 Take apply topically to abdominal folds twice daily for 14 days 03/12/20 024 Inactive Ozempic 1 mg/dose (4 mg/3 mL) subcutaneous pen injector RxNorm: 9608326 Inject 1 Milligram(s) Subcutaneous QW once a week 03/11/20 23 023 Inactive rosuvastatin 20 mg tablet RxNorm: 251836 Take 1 Tablet(s) Oral QD 02/26/20 23 023 Inactive d/c pravastatin 80mg Ozempic 1 mg/dose (4 mg/3 mL) subcutaneous pen injector RxNorm: 1366109 Inject 1 Milligram(s) Subcutaneous QW once a week 02/20/20 23 023 Inactive pregabalin 150 mg capsule RxNorm: 384063 Take 1 Capsule(s) Oral HS at bed time 02/19/20 23 023 Inactive pregabalin 100 mg capsule RxNorm: 236669 Take 1 Capsule(s) Oral QAM every morning 02/18/20 023 Inactive venlafaxine ER 75 mg capsule,extended release 24 hr RxNorm: 289230 Take 3 Capsule(s) Oral QD 02/04/20 023 Inactive FreeStyle Chema 2 Sensor kit RxNorm: use as directed 02/04/20 23 023 Inactive FreeStyle Chema 2 Sensor kit RxNorm: use as directed 02/04/20 23 024 Inactive fluconazole 150 mg tablet RxNorm: 967257 Take 1 Tablet(s) Oral on day 3 and on day 6 02/03/20 024 Active chlorthalidone 25 mg tablet RxNorm: 492272 Take 1 Tablet(s) Oral QAM every morning 02/03/20 23 No Stop Date Active venlafaxine ER 150 mg capsule,extended release 24 hr RxNorm: 645315 Take 1 Capsule(s) Oral QD 02/03/20 23 023 Inactive acetaminophen 500 mg tablet RxNorm: 559144 1 TABLET ORALLY 3 TIMES DAILY (MAX APAP:4GM/24HR) 12/15/19 23 023 Inactive clotrimazole 1 % topical cream RxNorm: 003020 apply 1g topically to top of feet and in between toes BID 12/09/19 23 023 Inactive potassium chloride ER 20 mEq tablet,extended release RxNorm: 376727 Take 1 Tablet(s) Oral BID 12/09/19 23 024 Inactive d/c 20mEq once daily (sent from hospital) nystatin 100,000 unit/gram topical powder RxNorm: 358713 APPLY TO AFFECTED AREAS TOPICALLY 2 TIMES DAILY 11/21/19 23 024 Inactive Nystop 100,000 unit/gram topical powder RxNorm: 039866 Apply to abd folds, under breasts and L side of groin Topical BID x 14 days, then BID PRN 11/20/19 023 Inactive dx: yeast dermatitis Bengay Ultra Strength 4 %-30 %-10 % topical cream RxNorm: 119136 Apply 1 Gram(s) Topical QID PRN to feet and legs for neuropathic pain 11/11/19 23 024 Inactive clotrimazole 1 % topical cream RxNorm: 167048 Apply 1/2 Gram(s) Topical BID Apply to affected areas of groin, periarea, and abdominal topically 2 times daily 11/10/19 23 023 Inactive hydrocortisone 2.5 % topical cream RxNorm: 131554 Apply 1/2 Gram(s) Topical BID as needed 11/10/19 024 Inactive Humulin R U-500 (Concentrated) Insulin 500 unit/mL subcutaneous soln RxNorm: 966848 Inject 100 Unit(s) Subcutaneous TID 10/07/19 024 Inactive Levemir FlexPen 100 unit/mL (3 mL) solution subcutaneous insulin pen RxNorm: 362194 Inject 30 Unit(s) Subcutaneous BID 10/07/19 023 Inactive Ozempic 0.25 mg or 0.5 mg (2 mg/3 mL) subcutaneous pen injector RxNorm: 4236333 Inject 1/2 Milligram(s) Subcutaneous QW once a week 10/07/19 024 Inactive aripiprazole 15 mg tablet RxNorm: 616842 1/2 TAB (7.5MG) ORALLY DAILY (DX:MAJOR DEPRESSIVE DISORDER) 09/23/19 23 023 Inactive Lancets,Thin 28 gauge RxNorm: Use 1 as directed QID 09/15/19 23 024 Inactive Accu-Chek Guide test strips RxNorm: Use 1 Test Strip QID 09/15/19 23 023 Inactive ok to substitute with any covered alternative test strip torsemide 20 mg tablet RxNorm: 193597 Take 1 Tablet(s) Oral BID 09/09/19 23 024 Inactive d/c once daily dosing carvedilol 25 mg tablet RxNorm: 409228 Take 1 Tablet(s) Oral QD 08/25/19 23 024 Inactive pregabalin 150 mg capsule RxNorm: 855541 1 Capsule(s) Oral HS at bed time 08/18/19 23 023 Inactive pregabalin 100 mg capsule RxNorm: 690620 1 Capsule(s) Oral QAM every morning 08/18/19 23 023 Inactive carvedilol 25 mg tablet RxNorm: 391372 1 Tablet(s) Oral QD 07/28/19 23 023 Inactive lisinopril 20 mg tablet RxNorm: 425152 Give 1 Tablet(s) Oral QD 07/28/19 23 023 Inactive Lyrica 150 mg capsule RxNorm: 653181 Take 1 Capsule(s) Oral QHS every night at bedtime 07/19/19 23 023 Inactive d/c 100mg dose Diflucan 150 mg tablet RxNorm: 741940 Take 1 Tablet(s) Oral QD repeat on day 3 and 6 07/19/19 23 023 Inactive pregabalin 100 mg capsule RxNorm: 145369 Take 1 Capsule(s) Oral QAM every morning 07/19/19 23 023 Inactive gatifloxacin 0.5 % eye drops RxNorm: 305652 Instill 1 Drop(s) as directed TID Instill 1 drop in to affected eye(s) starting 1 day prior to surgery and continue until gone (do not exceed 4 weeks). 07/13/19 23 023 Inactive carvedilol 25 mg tablet RxNorm: 651731 2 Tablet(s) Oral BID 07/13/19 23 023 Inactive Humulin R Regular U-100 Insulin 100 unit/mL injection solution RxNorm: 344876 85 Unit(s) Injection TID 07/13/19 23 023 Inactive ketorolac 0.5 % eye drops RxNorm: 982214 Instill 1 Drop(s) as directed QID Instill 1 drop into affected eye(s) 4 times daily starting 1 day prior to surgery and continue until gone (do not exceed 4 weeks). 07/13/19 23 023 Inactive Diflucan 150 mg tablet RxNorm: 352604 Take 1 Tablet(s) Oral QD repeat on day 3 and 6 06/30/19 23 023 Inactive Accu-Chek Guide test strips RxNorm: Use 1 Test Strip QID Use 1 test strip to monitor blood glucose 4 times daily and as needed. Dx:E11.42. 06/23/19 23 023 Inactive ok to substitute with any covered alternative test strip dextromethorphan-gu aifenesin 10 mg-100 mg/5 mL oral liquid RxNorm: 636946 Take 10 Milliliter(s) Oral every 4 hours as needed for cough 06/19/19 023 Inactive dextromethorphan-gu aifenesin 10 mg-100 mg/5 mL oral liquid RxNorm: 766356 Take 10 Milliliter(s) Oral every 4 hours as needed for cough 06/19/19 023 Inactive Lyrica 150 mg capsule RxNorm: 005631 Take 1 Capsule(s) Oral QHS every night at bedtime 06/18/19 23 023 Inactive d/c 100mg dose aripiprazole 15 mg tablet RxNorm: 844894 1/2 TAB (7.5MG) ORALLY DAILY (DX:MAJOR DEPRESSIVE DISORDER) 06/05/19 23 023 Inactive pregabalin 100 mg capsule RxNorm: 438076 1 Capsule(s) Oral QAM every morning 06/02/19 23 023 Inactive Banophen 50 mg capsule RxNorm: 2208663 Take 1 Capsule(s) Oral Q6H every 6 hours as needed 05/19/19 23 No Stop Date Active Novolog Flexpen U-100 Insulin aspart 100 unit/mL (3 mL) subcutaneous RxNorm: 0169751 Inject 10 Unit(s) Subcutaneous QHS every night at bedtime with nighttime snack 04/08/20 22 022 Inactive Novolog Flexpen U-100 Insulin aspart 100 unit/mL (3 mL) subcutaneous RxNorm: 5696107 Inject 42 Unit(s) Subcutaneous TID in addition to sliding scale 11 022 Inactive d/c 36u albuterol sulfate HFA 90 mcg/actuation aerosol inhaler RxNorm: 4508802 Take 2 Puff(s) Inhalation Q4H every four hours as needed as needed for SOB, cough, or wheezing 04/07/20 030 Active Banophen 50 mg capsule RxNorm: 0346070 Take 1 Capsule(s) Oral Q6H every 6 hours as needed 04/06/20 023 Inactive diphenhydramine 50 mg tablet RxNorm: 8604672 Take 1 Tablet(s) Oral Q6H every 6 hours as needed 04/06/20 022 Inactive diphenhydramine 50 mg tablet RxNorm: 6053785 1 Tablet(s) Oral Q6H every 6 hours as needed 04/06/20 022 Inactive Abilify 15 mg tablet RxNorm: 214699 1/2 Tablet(s) Oral QD 03/10/20 023 Inactive Shingrix (PF) 50 mcg/0.5 mL intramuscular suspension, kit RxNorm: 0071444 Administer 1/2 Milliliter(s) Intramuscular QD one time shingrix step 2 ( step 1 given 11/04/21) WITH needle - Nursing please administer upon arrival and once administered post a bridge message with date of administration, probate lawyer, expiration date, and lot# so we can update [facility] 02/18/20 22 022 Inactive dispense with needle Shingrix (PF) 50 mcg/0.5 mL intramuscular suspension, kit RxNorm: 8275392 Administer 1/2 Milliliter(s) Intramuscular QD one time shingrix step 2 ( step 1 given 11/04/21) WITH needle - Nursing please administer upon arrival and once administered post a bridge message with date of administration, probate lawyer, expiration date, and lot# so we can update [facility] 02/18/20 22 022 Inactive dispense with needle polyethylene glycol 3350 17 gram/dose oral powder RxNorm: 046741 Take 17=1 capful Gram(s) Oral QD mix with 4-8oz of liquid 01/08/20 22 023 Inactive take this in addition to BID prn order Lyrica 100 mg capsule RxNorm: 234847 Take 1 Capsule(s) Oral QAM every morning 01/08/20 22 022 Inactive d/c 50mg dose acetaminophen 500 mg tablet RxNorm: 268184 Take 1 Tablet(s) Oral TID 01/08/20 22 022 Inactive d/c PRN order Lyrica 150 mg capsule RxNorm: 642750 Take 1 Capsule(s) Oral QHS every night at bedtime 01/08/20 22 023 Inactive d/c 100mg dose Abilify 5 mg tablet RxNorm: 794730 Take 1 Tablet(s) Oral QD take 1 tab po QD #30 refill 5 dx: MDD 12/12/19 22 022 Inactive Abilify 5 mg tablet RxNorm: 730531 Take 1 Tablet(s) Oral QD take 1 tab po QD #30 refill 5 dx: MDD 12/12/19 22 022 Inactive Novolog Flexpen U-100 Insulin aspart 100 unit/mL (3 mL) subcutaneous RxNorm: 6187021 Inject 42 Unit(s) Subcutaneous TID in addition to sliding scale 12/10/19 22 Inactive d/c 36u chlorthalidone 25 mg tablet RxNorm: 140124 Take 1 Tablet(s) Oral QAM every morning 12/10/19 22 023 Inactive pregabalin 50 mg capsule RxNorm: 315286 Take 1 Capsule(s) Oral QAM every morning 11/12/19 22 022 Inactive tetanus-diphtheria toxoids-Td 2 Lf unit-2 Lf unit/0.5 mL IM suspension RxNorm: 139 Take 0.5 Miscellaneous Intramuscular 11/12/19 22 022 Inactive need tdap - nursing to administer upon arrival pregabalin 50 mg capsule RxNorm: 135825 Take 1 Capsule(s) Oral QAM every morning 10/16/19 22 022 Inactive pregabalin 50 mg capsule RxNorm: 825003 Take 1 Capsule(s) Oral QAM every morning 10/16/19 22 022 Inactive pregabalin 50 mg capsule RxNorm: 561894 1 Capsule(s) Oral QAM every morning 10/15/19 22 Inactive Shingrix (PF) 50 mcg/0.5 mL intramuscular suspension, kit RxNorm: 3770474 Administer 1/2 Milliliter(s) Intramuscular one time Nursing please administer upon arrival and once administered post a bridge message with date of administration, probate lawyer, expiration date, and lot# so we can update [facility]. 10/09/19 22 Inactive shingrix step 1 Shingrix (PF) 50 mcg/0.5 mL intramuscular suspension, kit RxNorm: 7935539 Administer 1/2 Milliliter(s) Intramuscular one time Nursing please administer upon arrival and once administered post a bridge message with date of administration, probate lawyer, expiration date, and lot# so we can update [facility]. 10/09/19 22 022 Inactive shingrix step 1 cholecalciferol (vitamin D3) 1,250 mcg (50,000 unit) capsule RxNorm: 919687 Take 1 Capsule(s) Oral QW once a [...] aspart 100 unit/mL (3 mL) subcutaneous RxNorm: 7510571 Inject 10 Unit(s) Subcutaneous QHS every night at bedtime with nighttime snack 10/08/19 22 Inactive Shingrix (PF) 50 mcg/0.5 mL intramuscular suspension, kit RxNorm: 9131535 ADMINISTER 2-DOSE SERIES PER CDC GUIDELINES 10/08/19 22 022 Active Shingrix (PF) 50 mcg/0.5 mL intramuscular suspension, kit RxNorm: 2476564 ADMINISTER 2-DOSE SERIES PER CDC GUIDELINES 10/08/19 22 Inactive Novolog Flexpen U-100 Insulin aspart 100 unit/mL (3 mL) subcutaneous RxNorm: 3729530 Inject 36 Unit(s) Subcutaneous TID in addition to sliding scale 10/08/19 Inactive Novofine Autocover 30 gauge x 1/3 needle RxNorm: Use 1 Miscellaneous UD as directed Use 1 needle as directed to administer insulin 5 times a day Dx:E11.42. 10/03/19 Inactive ok to substitute with any covered alternative pen needle benzoyl peroxide 10 % topical cleanser RxNorm: 531323 Apply 1 Application Topical QD apply to face, wash rinse and dry once daily (may change to QOD if drying) 08/19/19 Inactive (%covered by insurance) #60ml refill 11 dx: acne benzoyl peroxide 10 % topical cleanser RxNorm: 743945 Apply 1 Application Topical QD apply to face, wash rinse and dry once daily (may change to QOD if drying) 08/19/19 022 Inactive (%covered by insurance) #60ml refill 11 dx: acne benzoyl peroxide 10 % topical cleanser RxNorm: 275477 Apply 1 Application Topical QD apply to face, wash rinse and dry once daily (may change to QOD if drying) 08/19/19 22 022 Inactive (%covered by insurance) #60ml refill 11 dx: acne Lyrica 50 mg capsule RxNorm: 336387 Take 1 Capsule(s) Oral QAM every morning Take 1 capsule by mouth once daily 08/19/19 22 Inactive benzoyl peroxide 10 % topical cleanser RxNorm: 323519 Apply 1 Application Topical QD apply to face, wash rinse and dry once daily (may change to QOD if drying) 08/19/19 22 022 Inactive (%covered by insurance) #60ml refill 11 dx: acne Lyrica 100 mg capsule RxNorm: 580427 Take 1 Capsule(s) Oral QHS every night at bedtime Take 1 capsule by mouth once daily at bedtime 08/19/19 22 Inactive Lyrica 100 mg capsule RxNorm: 117320 Take 1 Capsule(s) Oral QHS every night at bedtime Take 1 capsule by mouth once daily at bedtime 08/16/19 22 022 Inactive Lyrica 50 mg capsule RxNorm: 050340 Take 1 Capsule(s) Oral QAM every morning Take 1 capsule by mouth once daily 08/16/19 22 022 Inactive Levemir FlexTouch U-100 Insulin 100 unit/mL (3 mL) subcutaneous pen RxNorm: 936205 Inject 86 Unit(s) Subcutaneous BID 08/05/19 22 022 Inactive d/c 83units BID Lyrica 100 mg capsule RxNorm: 229157 Take 1 Capsule(s) Oral QHS every night at bedtime Take 1 capsule by mouth once daily at bedtime 07/14/19 22 022 Inactive Lyrica 50 mg capsule RxNorm: 106930 Take 1 Capsule(s) Oral QAM every morning Take 1 capsule by mouth once daily 07/14/19 22 022 Inactive Levemir FlexTouch U-100 Insulin 100 unit/mL (3 mL) subcutaneous pen RxNorm: 635564 Inject 83 Unit(s) Subcutaneous BID 07/08/19 22 [...] test strip hydralazine 50 mg tablet RxNorm: 882505 Take 1 Tablet(s) Oral QID 05/05/20 21 022 Inactive venlafaxine ER 225 mg tablet,extended release 24 hr RxNorm: 298730 Take 1 Tablet(s) Oral QD 05/05/20 21 021 Inactive venlafaxine ER 225 mg tablet,extended release 24 hr RxNorm: 447277 Take 1 Tablet(s) Oral QD 05/05/20 022 Inactive isosorbide mononitrate ER 30 mg tablet,extended release 24 hr RxNorm: 422935 Take 1 Tablet(s) Oral QD 05/05/20 21 024 Inactive hydralazine 50 mg tablet RxNorm: 731843 Take 1 Tablet(s) Oral QID 05/05/20 21 021 Inactive aspirin 81 mg tablet,delayed release RxNorm: 523021 Take 1 Tablet(s) Oral QD 03/31/20 022 Inactive Vitamin D2 1,250 mcg (50,000 unit) capsule RxNorm: 1828749 Take 1 Capsule(s) Oral QW once a week x 12 weeks 03/31/20 022 Inactive Vitamin D2 1,250 mcg (50,000 unit) capsule RxNorm: 0646122 Take 1 Capsule(s) Oral QW once a week 03/31/20 021 Inactive Zetia 10 mg tablet RxNorm: 847663 Take 1 Tablet(s) Oral QD 03/31/20 024 Inactive Zetia 10 mg tablet RxNorm: 657284 Take 1 Tablet(s) Oral QD 03/31/20 021 Inactive hydralazine 25 mg tablet RxNorm: 790562 Take 1 Tablet(s) Oral QID 03/31/20 021 Inactive hydralazine 25 mg tablet RxNorm: 002706 Take 1 Tablet(s) Oral QID 03/31/20 021 Inactive hydralazine 10 mg tablet RxNorm: 795107 Take 1 Tablet(s) Oral QID 03/03/20 021 Inactive cephalexin 500 mg tablet RxNorm: 371966 Take 1 Tablet(s) Oral QID 02/27/20 021 Inactive cephalexin 500 mg tablet RxNorm: 046199 Take 1 Tablet(s) Oral QID 02/27/20 021 Inactive lisinopril 40 mg tablet RxNorm: 964485 Take 1 Tablet(s) Oral QD 02/11/20 023 Inactive Eliquis 5 mg tablet RxNorm: 1932179 Take 1 Tablet(s) Oral BID 01/05/20 022 Inactive Eliquis 5 mg tablet RxNorm: 6024668 Take 2 Tablet(s) Oral QD 01/01/20 21 021 Inactive Lyrica 50 mg capsule RxNorm: 640983 Take 1 Capsule(s) Oral QAM every morning 12/24/19 21 021 Inactive Lyrica 100 mg capsule RxNorm: 767676 Take 1 Capsule(s) Oral QHS every night at bedtime 12/24/19 021 Inactive clotrimazole 1 % topical cream RxNorm: 926972 Apply to right foot and toes Topical BID 12/04/19 21 023 Inactive metoprolol succinate ER 200 mg tablet,extended release 24 hr RxNorm: 693333 Take 1 Tablet(s) Oral QD 12/04/19 21 023 Inactive ciprofloxacin 500 mg tablet RxNorm: 310022 Take 1 Tablet(s) Oral QD 11/30/19 21 021 Inactive DX ofloxacin otic drops Accu-Chek Guide test strips RxNorm: USE 1 TO CHECK GLUCOSE 4 TIMES DAILY AND NEEDED 11/15/19 21 023 Inactive Blood Glucose Test strips RxNorm: Use 1 Test Strip QID at PRN 11/05/19 21 023 Inactive E11.42 lisinopril 30 mg tablet RxNorm: 278953 Take 1 Tablet(s) Oral QD 10/30/19 021 Inactive lisinopril 20 mg tablet RxNorm: 157654 Take 1 Tablet(s) Oral QD 10/23/19 21 021 Inactive lisinopril 20 mg tablet RxNorm: 844168 Take 1 Tablet(s) Oral QD 10/23/19 21 021 Inactive lisinopril 10 mg tablet RxNorm: 791498 Take 1 Tablet(s) Oral QD 10/02/19 021 Inactive icosapent ethyl 1 gram capsule RxNorm: 3087710 Take 2 Capsule(s) (2 gm) Oral BID with meals 09/12/19 024 Inactive Okay to dispense one 2gm tab if you have that available. icosapent ethyl 1 gram capsule RxNorm: 3324797 Take 2 Capsule(s) Oral BID 09/12/19 21 021 Inactive Okay to dispense one 2gm tab if you have that available. amlodipine 10 mg tablet RxNorm: 447853 Take 1 Tablet(s) Oral QD 09/04/19 21 022 Inactive aspirin 81 mg tablet,delayed release RxNorm: 078097 Take 1 Tablet(s) Oral QD 09/04/19 21 021 Inactive Levemir FlexTouch U-100 Insulin 100 unit/mL (3 mL) subcutaneous pen RxNorm: 994853 Inject 150 Unit(s) Subcutaneous BID 09/04/19 21 022 Inactive venlafaxine ER 150 mg tablet,extended release 24 hr RxNorm: 046812 Take 1 Tablet(s) Oral QD 09/04/19 21 021 Inactive clotrimazole-betame thasone 1 %-0.05 % topical cream RxNorm: 361036 Apply to rash on red area on left abdomen/chest Topical BID 08/10/19 21 Inactive amlodipine 5 mg tablet RxNorm: 027756 Take 1 Tablet(s) Oral QD 07/31/19 21 Inactive cephalexin 500 mg tablet RxNorm: 999233 Take 1 Tablet(s) Oral BID BID - Twice Daily 07/31/19 Inactive Start 08/01/20 pantoprazole 40 mg tablet,delayed release RxNorm: 773525 Take 1 Tablet(s) Oral QAM every morning 07/08/19 Inactive senna 8.6 mg tablet RxNorm: 630483 Take 1 Tablet(s) Oral QD 07/08/19 Inactive carbamazepine 200 mg tablet RxNorm: 198122 Take 1 Tablet(s) Oral BID 07/08/19 Inactive clopidogrel 75 mg tablet RxNorm: 649048 Take 1 Tablet(s) Oral QD 07/08/19 021 Inactive Blood Glucose Test strips RxNorm: Use 1 Test Strip QID at PRN 07/08/19 Inactive E11.42 Novolog Flexpen U-100 Insulin aspart 100 unit/mL (3 mL) subcutaneous RxNorm: 6437092 Administer per sliding scale Milliliter(s) Subcutaneous TID 151-200: 10 u; 201-250: 20 u; 251-300: 30 u; 301-350: 40 u; 351-400: 50 u. 07/08/19 022 Inactive lisinopril 5 mg tablet RxNorm: 505823 Take 1 Tablet(s) Oral QD 07/08/19 021 Inactive Novolog Flexpen U-100 Insulin aspart 100 unit/mL (3 mL) subcutaneous RxNorm: 6481977 Inject 85 Unit(s) Subcutaneous TID 07/08/19 022 Inactive pravastatin 80 mg tablet RxNorm: 040289 Take 1 Tablet(s) Oral QHS every night at bedtime 07/08/19 023 Inactive clotrimazole 1 % topical cream RxNorm: 702216 Apply to bilateral groin areas Topical BID 07/08/19 21 022 Inactive metoprolol succinate ER 200 mg tablet,extended release 24 hr RxNorm: 378353 Take 1 Tablet(s) Oral QD 07/08/19 021 Inactive Vitamin D3 25 mcg (1,000 unit) tablet RxNorm: 343317 Take 1 Tablet(s) Oral QD 07/08/19 021 Inactive isosorbide dinitrate 30 mg tablet RxNorm: 468917 Take 1 Tablet(s) Oral QD 07/08/19 021 Inactive Levemir FlexTouch U-100 Insulin 100 unit/mL (3 mL) subcutaneous pen RxNorm: 383452 Inject 140 Unit(s) Subcutaneous BID 07/08/19 021 Inactive torsemide 20 mg tablet RxNorm: 871405 Take 1 Tablet(s) Oral QD 07/08/19 023 Inactive venlafaxine 75 mg tablet RxNorm: 185806 Take 1 Tablet(s) Oral QD 07/08/19 021 Inactive acetaminophen 500 mg tablet RxNorm: 189522 Take 1 Tablet(s) Oral TID as needed for headache 06/18/19 021 Inactive acetaminophen 500 mg tablet RxNorm: 081207 Take 1 Tablet(s) Oral TID as needed for headache 06/18/19 021 Inactive Lyrica 100 mg capsule RxNorm: 041350 Take 1 Capsule(s) Oral QHS every night at bedtime 06/11/19 021 Inactive Lyrica 50 mg capsule RxNorm: 286680 Take 1 Capsule(s) Oral QAM every morning 06/10/19 21 021 Inactive hydrocortisone 2.5 % topical cream RxNorm: 816906 Apply to bilateral groin creases Topical BID 05/15/20 20 021 Inactive clotrimazole 1 % topical cream RxNorm: 319227 Apply to bilateral groin areas Topical BID 05/15/20 20 021 Inactive Lyrica 50 mg capsule RxNorm: 993140 Take 1 Capsule(s) Oral QAM every morning 05/14/20 20 Inactive Lyrica 100 mg capsule RxNorm: 871296 Take 1 Capsule(s) Oral QHS every night [...] Inactive Nystop 100,000 unit/gram topical powder RxNorm: 516367 Apply to abd folds, under breasts and L side of groin Topical BID x 14 days, then BID PRN 04/08/20 20 Inactive dx: yeast dermatitis Lyrica 100 mg capsule RxNorm: 722107 Take 1 Capsule(s) Oral QHS every night at bedtime 03/13/20 20 Inactive Lyrica 50 mg capsule RxNorm: 769027 Take 1 Capsule(s) Oral QAM every morning 03/13/20 20 Inactive ketoconazole 2 % shampoo RxNorm: 678115 Apply Topical two times a week with showers 03/11/20 20 024 Inactive cholecalciferol (vitamin D3) 50 mcg (2,000 unit) tablet RxNorm: 218225 Take 1 Tablet(s) Oral QD 03/11/20 20 021 Inactive Zetia 10 mg tablet RxNorm: 936262 Take 1 Tablet(s) Oral QD 03/07/20 20 021 Inactive Zetia 10 mg tablet RxNorm: 567222 Take 1 Tablet(s) Oral QD 03/07/20 20 Inactive Lyrica 50 mg capsule RxNorm: 376062 Take 1 Capsule(s) Oral QAM every morning 02/15/20 20 Inactive Lyrica 100 mg capsule RxNorm: 243063 Take 1 Capsule(s) Oral QHS every night at bedtime 02/15/20 20 Inactive Lyrica 100 mg capsule RxNorm: 466321 Take 1 Capsule(s) Oral QHS every night at bedtime 02/15/20 20 Inactive Lyrica 50 mg capsule RxNorm: 641388 Take 1 Capsule(s) Oral QAM every morning 02/15/20 20 Inactive metoprolol succinate ER 200 mg tablet,extended release 24 hr RxNorm: 395927 Take 1 Tablet(s) Oral QD 08/12/19 23 Active loperamide 2 mg capsule RxNorm: 785911 Take 1 Capsule(s) Oral QID as needed 06/12/19 22 Active hydralazine 50 mg tablet RxNorm: 291156 Take 1 Tablet(s) Oral QID 08/12/19 23 Active venlafaxine ER 75 mg capsule,extended release 24 hr RxNorm: 058739 Take 3 Capsule(s) Oral QD 06/12/19 22 023 Inactive polyethylene glycol 3350 17 gram/dose oral powder RxNorm: 705562 Take 17=1 capful Gram(s) Oral BID as needed mix with 4-8oz of liquid 06/12/19 22 024 Inactive icosapent ethyl 1 gram capsule RxNorm: 3536474 Take 2 Capsule(s) (2 gm) Oral BID with meals 10/07/19 23 023 Inactive Okay to dispense one 2gm tab if you have that available. Levemir FlexTouch U-100 Insulin 100 unit/mL (3 mL) subcutaneous pen RxNorm: 304956 Inject 80 Unit(s) Subcutaneous BID 07/14/19 23 023 Inactive Novolog Flexpen U-100 Insulin aspart 100 unit/mL (3 mL) subcutaneous RxNorm: 2642137 Insert 30 Unit(s) Subcutaneous TID with meals 10/08/19 022 Inactive Medication Administered No Medication Administered data Procedures Procedure Codes Date DEBRIDE NAIL 6 OR MORE CPT-4: 31368 4 SYS BP LESS 140 CPT-4: G8752 01/11/2024 CUI BP LESS 90 CPT-4: G8754 01/11/2024 Vital Signs Date Vital 01/11/2024 Blood Pressure 1: 11 Code: 8480-6 Heart Rate 1: 62 bpm Code: 8867-4 Temperature: 36.4 (C) / 97.6 (F) Reason For Visit No Reason For Visit data Encounters Encounter Performer Location Location Address Codes Date ([address]) Home or Residence Visit Est Pt - Moderate Level, 40 mins Diagnosis: BMI 60.0-69.9, adult[ICD10: Z68.44] Diagnosis: Lower extremity edema[ICD10: R60.0] Diagnosis: Onychogryposis[I CD10: L60.2] Diagnosis: PVD (peripheral vascular disease)[ICD10: I73.9] Diagnosis: Seizure disorder[ICD10: G40.909] Diagnosis: Pressure ulcer of left calf, unstageable[ICD1 0: L89.890] Diagnosis: Low back pain[ICD10: M54.50] Diagnosis: Physical deconditioning[I CD10: R53.81] Harrison Munson [facility] [place] [id number] [place] [address] [place] [address] CPT-4: 18332 01/11/2024 Plan of Care Planned Activity Notes Codes Status Date Appointment: Sandra Clark WPtel: [phone] Telehealth Psych Follow Up 12/09 Appointment: Tapan Shirley WPtel: [phone] TCM 10/26/2022 Referral: [facility] WPtel: [phone], [address] [id number] Referral Records Received 09/21/2022 Appointment: Tapan Shirley WPtel: [address] [facility] [address] [id number] [place] F/U 08/11/2022 Appointment: Tapan Shirley WPtel: [address] [facility] [address] [id number] [place] F/U 07/14/2022 Appointment: Tapan Shirley WPtel: [address] [facility] [address] [id number] [place] F/U 02/10/2022 Referral: [facility] WPtel: [address] [facility] [address] [id number] [place] Referral Completed 05/28/2021 Referral: General Cardiology [...] attention.??Sister Jyotsna involved in his care cell# [phone]??Guardian: Giulia (tapan met in person 09/01/21), now [...] in 1 year to monitor growth (due ).??Bobbi note from 11.08.2023 at [facility] (follow up 6 months)Colon & Rectal Surgery visit scheduled for 03/08/24 with Matilde Pérez PA-C.?? 01/05/2024 Pressure ulcer of left calf, unstageable [...] of infection. Would benefit from in home detention as per Leonid staff are not tending to his leg.?? BMI 60.0-69.9, adult Leonid didn't know his weight today.?? We discussed healthy diet options. Difficult as staff prepare and serve food. Encouraged him to ask for protein, veggies, fruits, water.?? PT referral will [...] any wound cares.?? Will place order for detention today. Leonid is high risk for impaired healing and infection due to his diabetes.?? Lower extremity edema Non pitting edema present.?? Compression stockings daily.?? Continue Torsemide 20 mg QD and Potassium Chloride 20 mEq BID.?? Does have wounds present on left lower extremity. Will be referring to detention for further support.?? Seizure disorder No recent [...]
--- OUTSIDE RECORDS SUMMARY | 2024-02-19 13:20 | XMS_ITS | CCD ---
Author Name Cecilio Durham feliberto Address [address] [place] [address] Phone Organization [facility] Phone Care Team Providers Care Sales Account Director Name Role Phone Harrison Durham Primary Care Provider Leona vailable Harrison Durham Chronic Care Management U navailable Summary Purpose DataExchange Insurance Providers Payer name Policy type / Coverage type Covered alliance party ID Effective Begin Date Effective End Date Medicare [place] Medicare Part B [id number] Unknown Unknown Medicaid [place] Medicare Part B [id number] Unknown Unknown Family history Sister Brittany Suggs [...] Unknown Custodial 09/03/[address]: 1871375 Non-Smoker / No History of Smoking 09/02/[address]: 851194574 No Alcohol Consum ption 09/02/2020 Allergies, Adverse Reactions, Alerts Substance Reaction Codes Entered Date Inactivated Date Status * NO KNOWN FOOD ALLERGIES Unknown 07/13/2023 No Inactive Date Active LISINOPRIL RxNorm: 49559 02/12/2020 No Inactive Da te Active Metformin [...] E78. 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 Other manager long term care (current) dr ug therapy [...] 09/07/2023 Resolved Coronary artery disease invo lving [place] coronary artery of [place] heart, angina presence unspecified ICD-10: I25.10 ICD-9: [...] immunization ICD-10: Z23 ICD-9: V03.89 02/10/2022 Resolved terminologist (current) use of insulin ICD-10: Z79.4 [...] Fill Instructions cephalexin 500 mg capsule RxNorm: 385279 Take 1 Capsule(s) Oral QID 12/17/19 24 024 Inactive cephalexin 500 mg capsule RxNorm: 068332 Take 1 Capsule(s) Oral QID 12/17/19 24 024 Inactive acetaminophen 500 mg tablet RxNorm: 673357 (MAX APAP:4GM/24HR) Take 1 Tablet(s) Oral TID as needed for pain 12/10/19 24 Active torsemide 20 mg tablet RxNorm: 398247 Take 1 Tablet(s) Oral QD 10/26/19 24 024 Inactive potassium chloride ER 20 mEq tablet,extended release RxNorm: 866490 Take 2 Tablet(s) Oral BID 10/26/19 24 025 Active torsemide 20 mg tablet RxNorm: 133507 Take 1 Tablet(s) Oral QD 10/26/19 24 024 Inactive potassium chloride ER 20 mEq tablet,extended release RxNorm: 699900 Take 2 Tablet(s) Oral BID 10/26/19 24 Inactive Artificial Tears (PF) 0.1 %-0.3 % drops in a dropperette RxNorm: 588545 Apply 1-2 Drop(s) Both eyes BID as needed 09/28/19 24 025 Active erythromycin 5 mg/gram (0.5 %) eye ointment RxNorm: 780790 Apply 1 Application Both eyes QHS every night at bedtime Instill ~1 cm ribbon into affected eye 09/28/19 24 Inactive Artificial Tears (PF) 0.1 %-0.3 % drops in a dropperette RxNorm: 117146 Apply 1-2 Drop(s) Both eyes BID as needed 09/28/19 24 024 Inactive erythromycin 5 mg/gram (0.5 %) eye ointment RxNorm: 745767 Apply 1 Application Both eyes QHS every night at bedtime Instill ~1 cm ribbon into affected eye 09/28/19 24 Inactive acetaminophen 500 mg tablet RxNorm: 165851 (MAX APAP:4GM/24HR) Take 1 Tablet(s) Oral TID as needed for pain 09/24/19 24 Inactive carvedilol 25 mg tablet RxNorm: 947376 Take 1 Tablet(s) Oral QD 09/08/19 24 No Stop Date Active pregabalin 100 mg capsule RxNorm: 662954 Take 1 Capsule(s) Oral QAM every morning 09/07/19 24 024 Inactive rosuvastatin 40 mg tablet RxNorm: 434292 Take 1 Tablet(s) Oral QPM every evening 07/13/19 24 No Stop Date Active ezetimibe 10 mg tablet RxNorm: 851265 Take 1 Tablet(s) Oral QD 07/13/19 24 No Stop Date Active bisacodyl 10 mg rectal suppository RxNorm: 871173 Insert 1 Suppository Rectal QD as needed 07/13/19 24 No Stop Date Active polyethylene glycol 3350 17 gram/dose oral powder RxNorm: 574722 Take 17 Gram(s) Oral BID as needed mix in 4-8ox water 07/13/19 24 No Stop Date Active ketoconazole 2 % shampoo RxNorm: 847720 Apply 1 Application Topical UD as directed 07/13/19 24 No Stop Date Active aripiprazole 15 mg tablet RxNorm: 986757 Take 1/2 Tablet(s) Oral QD 07/13/19 24 No Stop Date Active Ozempic 1 mg/dose (4 mg/3 mL) subcutaneous pen injector RxNorm: 0768413 Inject 1 Milligram(s) Subcutaneous QW once a week 07/13/19 24 No Stop Date Active Guaifenesin AC 10 mg-100 mg/5 mL oral liquid RxNorm: 240927 Take 10 Milliliter(s) Oral Q4H every four hours as needed 07/13/19 24 No Stop Date Active isosorbide mononitrate ER 60 mg tablet,extended release 24 hr RxNorm: 756388 Take 1 Tablet(s) Oral QD 07/13/19 24 No Stop Date Active ammonium lactate 12 % topical cream RxNorm: 599366 Apply 1 Application Topical BID 07/13/19 24 No Stop Date Active hydrocortisone 2.5 % topical cream RxNorm: 290016 Apply 1 Application Topical BID as needed 07/13/19 24 No Stop Date Active rosuvastatin 20 mg sprinkle capsule RxNorm: 5149262 Take 1 Capsule(s) Oral QD 07/13/19 24 No Stop Date Active Vascepa 1 gram capsule RxNorm: 3112951 Take 2 Capsule(s) Oral BID 07/13/19 24 No Stop Date Active venlafaxine ER 75 mg capsule,extended release 24 hr RxNorm: 752670 Take 3 Capsule(s) Oral QD 07/13/19 24 No Stop Date Active Basaglar KwikPen U-100 Insulin 100 unit/mL (3 mL) subcutaneous RxNorm: 8598836 Inject 30U SubQ twice daily 07/07/19 24 025 Active Please dispense one month supply. Basaglar KwikPen U-100 Insulin 100 unit/mL (3 mL) subcutaneous RxNorm: 9578843 Inject 30U SubQ twice daily 07/07/19 24 024 Inactive Please dispense one month supply. pregabalin 150 mg capsule RxNorm: 703617 Take 1 Capsule(s) Oral QHS every night at bedtime 07/05/19 24 024 Inactive pregabalin 150 mg capsule RxNorm: 964023 Take 1 Capsule(s) Oral QHS every night at bedtime 07/05/19 24 024 Inactive polyethylene glycol 3350 17 gram/dose oral powder RxNorm: 734696 Take 1 Packet Oral QD as needed (1 packet = 17g) mix with 4-8oz of liquid 06/15/19 24 024 Inactive bisacodyl 10 mg rectal suppository RxNorm: 867586 Insert one suppository per rectum once daily as needed for constipation 06/15/19 24 024 Inactive bisacodyl 10 mg rectal suppository RxNorm: 652704 Insert one suppository per rectum once daily as needed for constipation 06/15/19 24 024 Inactive pregabalin 100 mg capsule RxNorm: 332991 Take 1 Capsule(s) Oral QAM every morning 04/27/20 23 024 Inactive Levemir FlexPen 100 unit/mL (3 mL) solution subcutaneous insulin pen RxNorm: 276945 Inject 30 Unit(s) Subcutaneous BID 04/27/20 024 Inactive rosuvastatin 40 mg tablet RxNorm: 117178 Take 1 Tablet(s) Oral QPM every evening 04/16/20 024 Inactive D/C rosuvastatin 20mg venlafaxine ER 75 mg capsule,extended release 24 hr RxNorm: 290887 Take 3 Capsule(s) Oral QD 04/14/20 023 Inactive pregabalin 100 mg capsule RxNorm: 949253 Take 1 Capsule(s) Oral QAM every morning [...] meter clotrimazole 1 % topical cream RxNorm: 371523 Take apply topically to abdominal folds twice daily for 14 days 03/12/20 024 Inactive Ozempic 1 mg/dose (4 mg/3 mL) subcutaneous pen injector RxNorm: 4240081 Inject 1 Milligram(s) Subcutaneous QW once a week 03/11/20 23 023 Inactive rosuvastatin 20 mg tablet RxNorm: 819290 Take 1 Tablet(s) Oral QD 02/26/20 23 023 Inactive d/c pravastatin 80mg Ozempic 1 mg/dose (4 mg/3 mL) subcutaneous pen injector RxNorm: 6451887 Inject 1 Milligram(s) Subcutaneous QW once a week 02/20/20 23 023 Inactive pregabalin 150 mg capsule RxNorm: 614557 Take 1 Capsule(s) Oral HS at bed time 02/19/20 23 023 Inactive pregabalin 100 mg capsule RxNorm: 202818 Take 1 Capsule(s) Oral QAM every morning 02/18/20 23 023 Inactive venlafaxine ER 75 mg capsule,extended release 24 hr RxNorm: 024894 Take 3 Capsule(s) Oral QD 02/04/20 23 023 Inactive FreeStyle Chema 2 Sensor kit RxNorm: use as directed 02/04/20 23 023 Inactive FreeStyle Chema 2 Sensor kit RxNorm: use as directed 02/04/20 23 024 Inactive fluconazole 150 mg tablet RxNorm: 555588 Take 1 Tablet(s) Oral on day 3 and on day 6 02/03/20 024 Active chlorthalidone 25 mg tablet RxNorm: 651733 Take 1 Tablet(s) Oral QAM every morning 02/03/20 23 No Stop Date Active venlafaxine ER 150 mg capsule,extended release 24 hr RxNorm: 655360 Take 1 Capsule(s) Oral QD 02/03/20 23 023 Inactive acetaminophen 500 mg tablet RxNorm: 104314 1 TABLET ORALLY 3 TIMES DAILY (MAX APAP:4GM/24HR) 12/15/19 23 023 Inactive clotrimazole 1 % topical cream RxNorm: 167116 apply 1g topically to top of feet and in between toes BID 12/09/19 23 023 Inactive potassium chloride ER 20 mEq tablet,extended release RxNorm: 792228 Take 1 Tablet(s) Oral BID 12/09/19 23 024 Inactive d/c 20mEq once daily (sent from hospital) nystatin 100,000 unit/gram topical powder RxNorm: 421819 APPLY TO AFFECTED AREAS TOPICALLY 2 TIMES DAILY 11/21/19 23 024 Inactive Nystop 100,000 unit/gram topical powder RxNorm: 734407 Apply to abd folds, under breasts and L side of groin Topical BID x 14 days, then BID PRN 11/20/19 23 023 Inactive dx: yeast dermatitis Bengay Ultra Strength 4 %-30 %-10 % topical cream RxNorm: 460770 Apply 1 Gram(s) Topical QID PRN to feet and legs for neuropathic pain 11/11/19 024 Inactive clotrimazole 1 % topical cream RxNorm: 858059 Apply 1/2 Gram(s) Topical BID Apply to affected areas of groin, periarea, and abdominal topically 2 times daily 11/10/19 23 023 Inactive hydrocortisone 2.5 % topical cream RxNorm: 985809 Apply 1/2 Gram(s) Topical BID as needed 11/10/19 024 Inactive Humulin R U-500 (Concentrated) Insulin 500 unit/mL subcutaneous soln RxNorm: 165884 Inject 100 Unit(s) Subcutaneous TID 10/07/19 024 Inactive Levemir FlexPen 100 unit/mL (3 mL) solution subcutaneous insulin pen RxNorm: 749850 Inject 30 Unit(s) Subcutaneous BID 10/07/19 023 Inactive Ozempic 0.25 mg or 0.5 mg (2 mg/3 mL) subcutaneous pen injector RxNorm: 6020754 Inject 1/2 Milligram(s) Subcutaneous QW once a week 10/07/19 024 Inactive aripiprazole 15 mg tablet RxNorm: 557004 1/2 TAB (7.5MG) ORALLY DAILY (DX:MAJOR DEPRESSIVE DISORDER) 09/23/19 023 Inactive Lancets,Thin 28 gauge RxNorm: Use 1 as directed QID 09/15/19 23 024 Inactive Accu-Chek Guide test strips RxNorm: Use 1 Test Strip QID 09/15/19 23 023 Inactive ok to substitute with any covered alternative test strip torsemide 20 mg tablet RxNorm: 872109 Take 1 Tablet(s) Oral BID 09/09/19 23 024 Inactive d/c once daily dosing carvedilol 25 mg tablet RxNorm: 659244 Take 1 Tablet(s) Oral QD 08/25/19 23 024 Inactive pregabalin 150 mg capsule RxNorm: 874920 1 Capsule(s) Oral HS at bed time 08/18/19 023 Inactive pregabalin 100 mg capsule RxNorm: 207904 1 Capsule(s) Oral QAM every morning 08/18/19 23 023 Inactive carvedilol 25 mg tablet RxNorm: 242177 1 Tablet(s) Oral QD 07/28/19 23 023 Inactive lisinopril 20 mg tablet RxNorm: 467975 Give 1 Tablet(s) Oral QD 07/28/19 23 023 Inactive Lyrica 150 mg capsule RxNorm: 736859 Take 1 Capsule(s) Oral QHS every night at bedtime 07/19/19 023 Inactive d/c 100mg dose Diflucan 150 mg tablet RxNorm: 368662 Take 1 Tablet(s) Oral QD repeat on day 3 and 6 07/19/19 23 023 Inactive pregabalin 100 mg capsule RxNorm: 750061 Take 1 Capsule(s) Oral QAM every morning 07/19/19 023 Inactive gatifloxacin 0.5 % eye drops RxNorm: 997753 Instill 1 Drop(s) as directed TID Instill 1 drop in to affected eye(s) starting 1 day prior to surgery and continue until gone (do not exceed 4 weeks). 07/13/19 23 023 Inactive carvedilol 25 mg tablet RxNorm: 054611 2 Tablet(s) Oral BID 07/13/19 023 Inactive Humulin R Regular U-100 Insulin 100 unit/mL injection solution RxNorm: 635738 85 Unit(s) Injection TID 07/13/19 23 023 Inactive ketorolac 0.5 % eye drops RxNorm: 749469 Instill 1 Drop(s) as directed QID Instill 1 drop into affected eye(s) 4 times daily starting 1 day prior to surgery and continue until gone (do not exceed 4 weeks). 07/13/19 23 023 Inactive Diflucan 150 mg tablet RxNorm: 541170 Take 1 Tablet(s) Oral QD repeat on day 3 and 6 06/30/19 23 023 Inactive Accu-Chek Guide test strips RxNorm: Use 1 Test Strip QID Use 1 test strip to monitor blood glucose 4 times daily and as needed. Dx:E11.42. 06/23/19 23 023 Inactive ok to substitute with any covered alternative test strip dextromethorphan-gu aifenesin 10 mg-100 mg/5 mL oral liquid RxNorm: 486535 Take 10 Milliliter(s) Oral every 4 hours as needed for cough 06/19/19 23 023 Inactive dextromethorphan-gu aifenesin 10 mg-100 mg/5 mL oral liquid RxNorm: 582704 Take 10 Milliliter(s) Oral every 4 hours as needed for cough 06/19/19 023 Inactive Lyrica 150 mg capsule RxNorm: 390443 Take 1 Capsule(s) Oral QHS every night at bedtime 06/18/19 023 Inactive d/c 100mg dose aripiprazole 15 mg tablet RxNorm: 960132 1/2 TAB (7.5MG) ORALLY DAILY (DX:MAJOR DEPRESSIVE DISORDER) 06/05/19 23 023 Inactive pregabalin 100 mg capsule RxNorm: 944730 1 Capsule(s) Oral QAM every morning 06/02/19 23 023 Inactive Banophen 50 mg capsule RxNorm: 6806351 Take 1 Capsule(s) Oral Q6H every 6 hours as needed 05/19/19 23 No Stop Date Active Novolog Flexpen U-100 Insulin aspart 100 unit/mL (3 mL) subcutaneous RxNorm: 1429340 Inject 10 Unit(s) Subcutaneous QHS every night at bedtime with nighttime snack 04/08/20 22 022 Inactive Novolog Flexpen U-100 Insulin aspart 100 unit/mL (3 mL) subcutaneous RxNorm: 9268605 Inject 42 Unit(s) Subcutaneous TID in addition to sliding scale 04/08/20 22 022 Inactive d/c 36u albuterol sulfate HFA 90 mcg/actuation aerosol inhaler RxNorm: 4798314 Take 2 Puff(s) Inhalation Q4H every four hours as needed as needed for SOB, cough, or wheezing 04/07/20 22 030 Active Banophen 50 mg capsule RxNorm: 4516559 Take 1 Capsule(s) Oral Q6H every 6 hours as needed 04/06/20 023 Inactive diphenhydramine 50 mg tablet RxNorm: 1752892 Take 1 Tablet(s) Oral Q6H every 6 hours as needed 04/06/20 22 022 Inactive diphenhydramine 50 mg tablet RxNorm: 2418812 1 Tablet(s) Oral Q6H every 6 hours as needed 04/06/20 22 022 Inactive Abilify 15 mg tablet RxNorm: 028360 1/2 Tablet(s) Oral QD 03/10/20 023 Inactive Shingrix (PF) 50 mcg/0.5 mL intramuscular suspension, kit RxNorm: 9605646 Administer 1/2 Milliliter(s) Intramuscular QD one time shingrix step 2 ( step 1 given 11/04/21) WITH needle - Nursing please administer upon arrival and once administered post a bridge message with date of administration, nurse consultant, expiration date, and lot# so we can update MOIC 02/18/20 22 022 Inactive dispense with needle Shingrix (PF) 50 mcg/0.5 mL intramuscular suspension, kit RxNorm: 2216964 Administer 1/2 Milliliter(s) Intramuscular QD one time shingrix step 2 ( step 1 given 11/04/21) WITH needle - Nursing please administer upon arrival and once administered post a bridge message with date of administration, nurse consultant, expiration date, and lot# so we can update MOIC 02/18/20 22 022 Inactive dispense with needle polyethylene glycol 3350 17 gram/dose oral powder RxNorm: 712473 Take 17=1 capful Gram(s) Oral QD mix with 4-8oz of liquid 01/08/20 22 023 Inactive take this in addition to BID prn order Lyrica 100 mg capsule RxNorm: 408557 Take 1 Capsule(s) Oral QAM every morning 01/08/20 22 022 Inactive d/c 50mg dose acetaminophen 500 mg tablet RxNorm: 434872 Take 1 Tablet(s) Oral TID 01/08/20 22 022 Inactive d/c PRN order Lyrica 150 mg capsule RxNorm: 646201 Take 1 Capsule(s) Oral QHS every night at bedtime 01/08/20 22 023 Inactive d/c 100mg dose Abilify 5 mg tablet RxNorm: 506659 Take 1 Tablet(s) Oral QD take 1 tab po QD #30 refill 5 dx: MDD 12/12/19 22 022 Inactive Abilify 5 mg tablet RxNorm: 550597 Take 1 Tablet(s) Oral QD take 1 tab po QD #30 refill 5 dx: MDD 12/12/19 22 022 Inactive Novolog Flexpen U-100 Insulin aspart 100 unit/mL (3 mL) subcutaneous RxNorm: 0780457 Inject 42 Unit(s) Subcutaneous TID in addition to sliding scale 12/10/19 22 022 Inactive d/c 36u chlorthalidone 25 mg tablet RxNorm: 845859 Take 1 Tablet(s) Oral QAM every morning 12/10/19 22 023 Inactive pregabalin 50 mg capsule RxNorm: 370363 Take 1 Capsule(s) Oral QAM every morning 11/12/19 22 022 Inactive tetanus-diphtheria toxoids-Td 2 Lf unit-2 Lf unit/0.5 mL IM suspension RxNorm: 139 Take 0.5 Miscellaneous Intramuscular 11/12/19 22 022 Inactive need tdap - nursing to administer upon arrival pregabalin 50 mg capsule RxNorm: 656847 Take 1 Capsule(s) Oral QAM every morning 10/16/19 22 022 Inactive pregabalin 50 mg capsule RxNorm: 323477 Take 1 Capsule(s) Oral QAM every morning 10/16/19 22 022 Inactive pregabalin 50 mg capsule RxNorm: 232404 1 Capsule(s) Oral QAM every morning 10/15/19 22 022 Inactive Shingrix (PF) 50 mcg/0.5 mL intramuscular suspension, kit RxNorm: 3085631 Administer 1/2 Milliliter(s) Intramuscular one time Nursing please administer upon arrival and once administered post a bridge message with date of administration, nurse consultant, expiration date, and lot# so we can update [facility]IC. 10/09/19 22 022 Inactive shingrix step 1 Shingrix (PF) 50 mcg/0.5 mL intramuscular suspension, kit RxNorm: 7023151 Administer 1/2 Milliliter(s) Intramuscular one time Nursing please administer upon arrival and once administered post a bridge message with date of administration, nurse consultant, expiration date, and lot# so we can update [facility]IC. 10/09/19 22 022 Inactive shingrix step 1 cholecalciferol (vitamin D3) 1,250 mcg (50,000 unit) capsule RxNorm: 409916 Take 1 Capsule(s) Oral QW once a [...] aspart 100 unit/mL (3 mL) subcutaneous RxNorm: 8941812 Inject 10 Unit(s) Subcutaneous QHS every night at bedtime with nighttime snack 10/08/19 22 Inactive Shingrix (PF) 50 mcg/0.5 mL intramuscular suspension, kit RxNorm: 5475797 ADMINISTER 2-DOSE SERIES PER CDC GUIDELINES 10/08/19 22 Active Shingrix (PF) 50 mcg/0.5 mL intramuscular suspension, kit RxNorm: 8244897 ADMINISTER 2-DOSE SERIES PER CDC GUIDELINES 10/08/19 22 022 Inactive Novolog Flexpen U-100 Insulin aspart 100 unit/mL (3 mL) subcutaneous RxNorm: 1738626 Inject 36 Unit(s) Subcutaneous TID in addition to sliding scale 10/08/19 22 Inactive Novofine Autocover 30 gauge x 1/3 needle RxNorm: Use 1 Miscellaneous UD as directed Use 1 needle as directed to administer insulin 5 times a day Dx:E11.42. 10/03/19 22 Inactive ok to substitute with any covered alternative pen needle benzoyl peroxide 10 % topical cleanser RxNorm: 614533 Apply 1 Application Topical QD apply to face, wash rinse and dry once daily (may change to QOD if drying) 08/19/19 22 022 Inactive (%covered by insurance) #60ml refill 11 dx: acne benzoyl peroxide 10 % topical cleanser RxNorm: 332969 Apply 1 Application Topical QD apply to face, wash rinse and dry once daily (may change to QOD if drying) 08/19/19 22 022 Inactive (%covered by insurance) #60ml refill 11 dx: acne benzoyl peroxide 10 % topical cleanser RxNorm: 514692 Apply 1 Application Topical QD apply to face, wash rinse and dry once daily (may change to QOD if drying) 08/19/19 022 Inactive (%covered by insurance) #60ml refill 11 dx: acne Lyrica 50 mg capsule RxNorm: 419673 Take 1 Capsule(s) Oral QAM every morning Take 1 capsule by mouth once daily 08/19/19 022 Inactive benzoyl peroxide 10 % topical cleanser RxNorm: 189333 Apply 1 Application Topical QD apply to face, wash rinse and dry once daily (may change to QOD if drying) 08/19/19 22 022 Inactive (%covered by insurance) #60ml refill 11 dx: acne Lyrica 100 mg capsule RxNorm: 207536 Take 1 Capsule(s) Oral QHS every night at bedtime Take 1 capsule by mouth once daily at bedtime 08/19/19 22 022 Inactive Lyrica 100 mg capsule RxNorm: 297192 Take 1 Capsule(s) Oral QHS every night at bedtime Take 1 capsule by mouth once daily at bedtime 08/16/19 22 022 Inactive Lyrica 50 mg capsule RxNorm: 372515 Take 1 Capsule(s) Oral QAM every morning Take 1 capsule by mouth once daily 08/16/19 22 04/01/2 022 Inactive Levemir FlexTouch U-100 Insulin 100 unit/mL (3 mL) subcutaneous pen RxNorm: 493024 Inject 86 Unit(s) Subcutaneous BID 08/05/19 22 022 Inactive d/c 83units BID Lyrica 100 mg capsule RxNorm: 714610 Take 1 Capsule(s) Oral QHS every night at bedtime Take 1 capsule by mouth once daily at bedtime 07/14/19 22 022 Inactive Lyrica 50 mg capsule RxNorm: 217392 Take 1 Capsule(s) Oral QAM every morning Take 1 capsule by mouth once daily 07/14/19 22 022 Inactive Levemir FlexTouch U-100 Insulin 100 unit/mL (3 mL) subcutaneous pen RxNorm: 424583 Inject 83 Unit(s) Subcutaneous BID 07/08/19 22 [...] test strip hydralazine 50 mg tablet RxNorm: 884640 Take 1 Tablet(s) Oral QID 05/05/20 21 022 Inactive venlafaxine ER 225 mg tablet,extended release 24 hr RxNorm: 617893 Take 1 Tablet(s) Oral QD 05/05/20 021 Inactive venlafaxine ER 225 mg tablet,extended release 24 hr RxNorm: 193846 Take 1 Tablet(s) Oral QD 05/05/20 022 Inactive isosorbide mononitrate ER 30 mg tablet,extended release 24 hr RxNorm: 957052 Take 1 Tablet(s) Oral QD 05/05/20 024 Inactive hydralazine 50 mg tablet RxNorm: 255149 Take 1 Tablet(s) Oral QID 05/05/20 021 Inactive aspirin 81 mg tablet,delayed release RxNorm: 321600 Take 1 Tablet(s) Oral QD 03/31/20 022 Inactive Vitamin D2 1,250 mcg (50,000 unit) capsule RxNorm: 0311537 Take 1 Capsule(s) Oral QW once a week x 12 weeks 03/31/20 022 Inactive Vitamin D2 1,250 mcg (50,000 unit) capsule RxNorm: 9948997 Take 1 Capsule(s) Oral QW once a week 03/31/20 021 Inactive Zetia 10 mg tablet RxNorm: 631138 Take 1 Tablet(s) Oral QD 03/31/20 024 Inactive Zetia 10 mg tablet RxNorm: 051604 Take 1 Tablet(s) Oral QD 03/31/20 021 Inactive hydralazine 25 mg tablet RxNorm: 912690 Take 1 Tablet(s) Oral QID 03/31/20 21 021 Inactive hydralazine 25 mg tablet RxNorm: 241441 Take 1 Tablet(s) Oral QID 03/31/20 021 Inactive hydralazine 10 mg tablet RxNorm: 818685 Take 1 Tablet(s) Oral QID 03/03/20 021 Inactive cephalexin 500 mg tablet RxNorm: 256528 Take 1 Tablet(s) Oral QID 02/27/20 021 Inactive cephalexin 500 mg tablet RxNorm: 201292 Take 1 Tablet(s) Oral QID 02/27/20 021 Inactive lisinopril 40 mg tablet RxNorm: 730478 Take 1 Tablet(s) Oral QD 02/11/20 023 Inactive Eliquis 5 mg tablet RxNorm: 4534433 Take 1 Tablet(s) Oral BID 01/05/20 022 Inactive Eliquis 5 mg tablet RxNorm: 1054981 Take 2 Tablet(s) Oral QD 01/01/20 21 021 Inactive Lyrica 50 mg capsule RxNorm: 308987 Take 1 Capsule(s) Oral QAM every morning 12/24/19 21 021 Inactive Lyrica 100 mg capsule RxNorm: 591175 Take 1 Capsule(s) Oral QHS every night at bedtime 12/24/19 021 Inactive clotrimazole 1 % topical cream RxNorm: 101308 Apply to right foot and toes Topical BID 12/04/19 21 023 Inactive metoprolol succinate ER 200 mg tablet,extended release 24 hr RxNorm: 360769 Take 1 Tablet(s) Oral QD 12/04/19 023 Inactive ciprofloxacin 500 mg tablet RxNorm: 382783 Take 1 Tablet(s) Oral QD 11/30/19 21 021 Inactive DX ofloxacin otic drops Accu-Chek Guide test strips RxNorm: USE 1 TO CHECK GLUCOSE 4 TIMES DAILY AND NEEDED 11/15/19 21 023 Inactive Blood Glucose Test strips RxNorm: Use 1 Test Strip QID at PRN 11/05/19 21 023 Inactive E11.42 lisinopril 30 mg tablet RxNorm: 188300 Take 1 Tablet(s) Oral QD 10/30/19 21 021 Inactive lisinopril 20 mg tablet RxNorm: 045377 Take 1 Tablet(s) Oral QD 10/23/19 21 021 Inactive lisinopril 20 mg tablet RxNorm: 734046 Take 1 Tablet(s) Oral QD 10/23/19 21 021 Inactive lisinopril 10 mg tablet RxNorm: 121012 Take 1 Tablet(s) Oral QD 10/02/19 21 021 Inactive icosapent ethyl 1 gram capsule RxNorm: 9589042 Take 2 Capsule(s) (2 gm) Oral BID with meals 09/12/19 024 Inactive Okay to dispense one 2gm tab if you have that available. icosapent ethyl 1 gram capsule RxNorm: 0856057 Take 2 Capsule(s) Oral BID 09/12/19 21 021 Inactive Okay to dispense one 2gm tab if you have that available. amlodipine 10 mg tablet RxNorm: 169557 Take 1 Tablet(s) Oral QD 09/04/19 21 022 Inactive aspirin 81 mg tablet,delayed release RxNorm: 151694 Take 1 Tablet(s) Oral QD 09/04/19 21 021 Inactive Levemir FlexTouch U-100 Insulin 100 unit/mL (3 mL) subcutaneous pen RxNorm: 708515 Inject 150 Unit(s) Subcutaneous BID 09/04/19 21 022 Inactive venlafaxine ER 150 mg tablet,extended release 24 hr RxNorm: 724180 Take 1 Tablet(s) Oral QD 09/04/19 21 021 Inactive clotrimazole-betame thasone 1 %-0.05 % topical cream RxNorm: 341723 Apply to rash on red area on left abdomen/chest Topical BID 08/10/19 21 021 Inactive amlodipine 5 mg tablet RxNorm: 004873 Take 1 Tablet(s) Oral QD 07/31/19 21 021 Inactive cephalexin 500 mg tablet RxNorm: 636078 Take 1 Tablet(s) Oral BID BID - Twice Daily 07/31/19 21 021 Inactive Start 08/01/20 pantoprazole 40 mg tablet,delayed release RxNorm: 734873 Take 1 Tablet(s) Oral QAM every morning 07/08/19 21 022 Inactive senna 8.6 mg tablet RxNorm: 857905 Take 1 Tablet(s) Oral QD 07/08/19 022 Inactive carbamazepine 200 mg tablet RxNorm: 900391 Take 1 Tablet(s) Oral BID 07/08/19 022 Inactive clopidogrel 75 mg tablet RxNorm: 064948 Take 1 Tablet(s) Oral QD 07/08/19 021 Inactive Blood Glucose Test strips RxNorm: Use 1 Test Strip QID at PRN 07/08/19 21 Inactive E11.42 Novolog Flexpen U-100 Insulin aspart 100 unit/mL (3 mL) subcutaneous RxNorm: 1402393 Administer per sliding scale Milliliter(s) Subcutaneous TID 151-200: 10 u; 201-250: 20 u; 251-300: 30 u; 301-350: 40 u; 351-400: 50 u. 07/08/19 022 Inactive lisinopril 5 mg tablet RxNorm: 992388 Take 1 Tablet(s) Oral QD 07/08/19 021 Inactive Novolog Flexpen U-100 Insulin aspart 100 unit/mL (3 mL) subcutaneous RxNorm: 2965959 Inject 85 Unit(s) Subcutaneous TID 07/08/19 022 Inactive pravastatin 80 mg tablet RxNorm: 132137 Take 1 Tablet(s) Oral QHS every night at bedtime 07/08/19 023 Inactive clotrimazole 1 % topical cream RxNorm: 550944 Apply to bilateral groin areas Topical BID 07/08/19 022 Inactive metoprolol succinate ER 200 mg tablet,extended release 24 hr RxNorm: 009777 Take 1 Tablet(s) Oral QD 07/08/19 021 Inactive Vitamin D3 25 mcg (1,000 unit) tablet RxNorm: 444476 Take 1 Tablet(s) Oral QD 07/08/19 21 021 Inactive isosorbide dinitrate 30 mg tablet RxNorm: 986564 Take 1 Tablet(s) Oral QD 07/08/19 Inactive Levemir FlexTouch U-100 Insulin 100 unit/mL (3 mL) subcutaneous pen RxNorm: 527162 Inject 140 Unit(s) Subcutaneous BID 07/08/19 021 Inactive torsemide 20 mg tablet RxNorm: 535588 Take 1 Tablet(s) Oral QD 07/08/19 21 023 Inactive venlafaxine 75 mg tablet RxNorm: 140820 Take 1 Tablet(s) Oral QD 07/08/19 Inactive acetaminophen 500 mg tablet RxNorm: 663456 Take 1 Tablet(s) Oral TID as needed for headache 06/18/19 021 Inactive acetaminophen 500 mg tablet RxNorm: 552111 Take 1 Tablet(s) Oral TID as needed for headache 06/18/19 021 Inactive Lyrica 100 mg capsule RxNorm: 896005 Take 1 Capsule(s) Oral QHS every night at bedtime 06/11/19 21 021 Inactive Lyrica 50 mg capsule RxNorm: 697993 Take 1 Capsule(s) Oral QAM every morning 06/10/19 21 021 Inactive hydrocortisone 2.5 % topical cream RxNorm: 281317 Apply to bilateral groin creases Topical BID 05/15/20 20 021 Inactive clotrimazole 1 % topical cream RxNorm: 538186 Apply to bilateral groin areas Topical BID 05/15/20 20 021 Inactive Lyrica 50 mg capsule RxNorm: 355407 Take 1 Capsule(s) Oral QAM every morning 05/14/20 20 Inactive Lyrica 100 mg capsule RxNorm: 879135 Take 1 Capsule(s) Oral QHS every night [...] Inactive Nystop 100,000 unit/gram topical powder RxNorm: 974006 Apply to abd folds, under breasts and L side of groin Topical BID x 14 days, then BID PRN 04/08/20 20 Inactive dx: yeast dermatitis Lyrica 100 mg capsule RxNorm: 994016 Take 1 Capsule(s) Oral QHS every night at bedtime 03/13/20 20 Inactive Lyrica 50 mg capsule RxNorm: 400468 Take 1 Capsule(s) Oral QAM every morning 03/13/20 20 Inactive ketoconazole 2 % shampoo RxNorm: 784661 Apply Topical two times a week with showers 03/11/20 20 Inactive cholecalciferol (vitamin D3) 50 mcg (2,000 unit) tablet RxNorm: 589316 Take 1 Tablet(s) Oral QD 03/11/20 20 Inactive Zetia 10 mg tablet RxNorm: 689826 Take 1 Tablet(s) Oral QD 03/07/20 20 021 Inactive Zetia 10 mg tablet RxNorm: 876226 Take 1 Tablet(s) Oral QD 03/07/20 20 Inactive Lyrica 50 mg capsule RxNorm: 997985 Take 1 Capsule(s) Oral QAM every morning 02/15/20 20 Inactive Lyrica 100 mg capsule RxNorm: 142109 Take 1 Capsule(s) Oral QHS every night at bedtime 02/15/20 20 10/01/2 020 Inactive Lyrica 100 mg capsule RxNorm: 435543 Take 1 Capsule(s) Oral QHS every night at bedtime 02/15/20 20 Inactive Lyrica 50 mg capsule RxNorm: 485503 Take 1 Capsule(s) Oral QAM every morning 02/15/20 20 Inactive metoprolol succinate ER 200 mg tablet,extended release 24 hr RxNorm: 262592 Take 1 Tablet(s) Oral QD 08/12/19 23 Active loperamide 2 mg capsule RxNorm: 900542 Take 1 Capsule(s) Oral QID as needed 06/12/19 22 Active hydralazine 50 mg tablet RxNorm: 204155 Take 1 Tablet(s) Oral QID 08/12/19 23 Active venlafaxine ER 75 mg capsule,extended release 24 hr RxNorm: 897883 Take 3 Capsule(s) Oral QD 06/12/19 22 023 Inactive polyethylene glycol 3350 17 gram/dose oral powder RxNorm: 719828 Take 17=1 capful Gram(s) Oral BID as needed mix with 4-8oz of liquid 06/12/19 22 024 Inactive icosapent ethyl 1 gram capsule RxNorm: 2618919 Take 2 Capsule(s) (2 gm) Oral BID with meals 10/07/19 23 023 Inactive Okay to dispense one 2gm tab if you have that available. Levemir FlexTouch U-100 Insulin 100 unit/mL (3 mL) subcutaneous pen RxNorm: 612052 Inject 80 Unit(s) Subcutaneous BID 07/14/19 23 023 Inactive Novolog Flexpen U-100 Insulin aspart 100 unit/mL (3 mL) subcutaneous RxNorm: 5990300 Insert 30 Unit(s) Subcutaneous TID with meals 10/08/19 22 022 Inactive Medication Administered No Medication Administered data Reason For Visit No Reason For Visit data Plan of Care Planned Activity Notes Codes Status Date Patient Education: Patient Medication Summary Completed 01/05/2024 Appointment: Sandra Clark WPtel: [address] [place], [place] [id number] [place] Telehealth Psych Follow Up 12/09 Appointment: Tapan Shirley WPtel: [address] [facility] [address] [id number] [place] [facility] 10/26/2022 Referral: [facility] [address] [facility] [address] [id number] Referral Records Received 09/21/2022 Appointment: Tapan Shirley WPtel: [address] [facility] [address] [id number] [place] F/U 08/11/2022 Appointment: Tapan Shirley WPtel: [address] [facility] [address] [id number] [place] F/U 07/14/2022 Appointment: Tapan Shirley WPtel: [address] [facility] [address] [id number] [place] F/U 02/10/2022 Referral: [facility] WPtel: [address] [facility] [address] [id number] [place] Referral Completed 05/28/2021 Referral: General Cardiology Referral Complet ed 01/03/2021 Referral: General Psychologist Referral Close d Referral: General Psychiatrist Referral Patient/Family Scheduling Appointment Instructions Comment Date Leonid is a?? Male being seen living at [facility]. Initial [facility] visit 01/2020. PMHx including DMII, CAD w/ 5 stents, Depression, Seizure Disorder and CKD stage 3. He moved into [facility] in 12/2019 but after a hospitalization 05/2021 he moved to the [facility] to have closer nursing attention.??Sister Jyotsna involved in his care cell# [phone]??Guardian: Giulia (tapan met in person 09/01/21), now has Leixi (same group as giulia)Lab Schedule: /September*September (CBC [...] in 1 year to monitor growth (due )??Bobbi note from 11.08.2023 at [facility] (follow up 6 months)Colon & Rectal Surgery visit scheduled for 03/08/24 with Matilde Pérez PA-C.?? 01/05/2024
--- OUTSIDE RECORDS SUMMARY | 2024-02-19 13:20 | XMS_ITS | CCD ---
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 Name Role Phone Door DETECTIVE SUPERVISOR-CHarrison Primary Care Provider Leona vailable Arpit DETECTIVE SUPERVISOR-C, [facility] Chronic Care Management U navailable Summary Purpose DataExchange Insurance Providers Payer name Policy type / Coverage type Covered constitution party ID Effective Begin Date Effective End Date Medicare [place] Medicare Part B [id number] Unknown Unknown Medicaid [place] Medicare Part B [id number] Unknown Unknown Family history Sister Brittany Suggs [...] Prison 09/03/[address]: 7180830 Non-Smoker / No History of Smoking 09/02/[address]: 959193206 No Alcohol Consum ption 09/02/2020 Allergies, Adverse Reactions, Alerts Substance Reaction Codes Entered Date Inactivated Date Status * NO KNOWN FOOD ALLERGIES Unknown 07/13/2023 No Inactive Date Active LISINOPRIL RxNorm: 60480 02/12/2020 No Inactive Da te Active Metformin [...] E78. 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 Other intermediate frame tender (current) dr ug therapy ICD-10: Z79.899 ICD-9: [...] 09/07/2023 Resolved Coronary artery disease invo lving [place] coronary artery of [place] heart, angina presence unspecified ICD-10: I25.10 ICD-9: [...] Fill Instructions torsemide 20 mg tablet RxNorm: 950921 1 TAB ORALLY DAILY (DX: EDEMA) 01/27/20 No Stop Date Active potassium chloride ER 20 mEq tablet,extended release(part/cryst) RxNorm: 2945497 2 TABS (40MEQ) ORALLY TWICE DAILY (DX: HYPOKALEMIA) 01/27/20 No Stop Date Active cephalexin 500 mg capsule RxNorm: 594402 Take 1 Capsule(s) Oral QID 12/17/19 24 024 Inactive cephalexin 500 mg capsule RxNorm: 940479 Take 1 Capsule(s) Oral QID 12/17/19 24 024 Inactive acetaminophen 500 mg tablet RxNorm: 360617 (MAX APAP:4GM/24HR) Take 1 Tablet(s) Oral TID as needed for pain 12/10/19 24 024 Active torsemide 20 mg tablet RxNorm: 012748 Take 1 Tablet(s) Oral QD 10/26/19 24 024 Inactive potassium chloride ER 20 mEq tablet,extended release RxNorm: 569173 Take 2 Tablet(s) Oral BID 10/26/19 24 025 Active torsemide 20 mg tablet RxNorm: 926014 Take 1 Tablet(s) Oral QD 10/26/19 24 024 Inactive potassium chloride ER 20 mEq tablet,extended release RxNorm: 873474 Take 2 Tablet(s) Oral BID 10/26/19 24 024 Inactive Artificial Tears (PF) 0.1 %-0.3 % drops in a dropperette RxNorm: 593521 Apply 1-2 Drop(s) Both eyes BID as needed 09/28/19 24 025 Active erythromycin 5 mg/gram (0.5 %) eye ointment RxNorm: 446616 Apply 1 Application Both eyes QHS every night at bedtime Instill ~1 cm ribbon into affected eye 09/28/19 24 Inactive Artificial Tears (PF) 0.1 %-0.3 % drops in a dropperette RxNorm: 216824 Apply 1-2 Drop(s) Both eyes BID as needed 09/28/19 24 Inactive erythromycin 5 mg/gram (0.5 %) eye ointment RxNorm: 585084 Apply 1 Application Both eyes QHS every night at bedtime Instill ~1 cm ribbon into affected eye 09/28/19 24 Inactive acetaminophen 500 mg tablet RxNorm: 708977 (MAX APAP:4GM/24HR) Take 1 Tablet(s) Oral TID as needed for pain 09/24/19 24 Inactive carvedilol 25 mg tablet RxNorm: 226319 Take 1 Tablet(s) Oral QD 09/08/19 24 No Stop Date Active pregabalin 100 mg capsule RxNorm: 104020 Take 1 Capsule(s) Oral QAM every morning 09/07/19 24 024 Inactive rosuvastatin 40 mg tablet RxNorm: 875135 Take 1 Tablet(s) Oral QPM every evening 07/13/19 24 No Stop Date Active ezetimibe 10 mg tablet RxNorm: 486091 Take 1 Tablet(s) Oral QD 07/13/19 24 No Stop Date Active bisacodyl 10 mg rectal suppository RxNorm: 098252 Insert 1 Suppository Rectal QD as needed 07/13/19 24 No Stop Date Active polyethylene glycol 3350 17 gram/dose oral powder RxNorm: 218013 Take 17 Gram(s) Oral BID as needed mix in 4-8ox water 07/13/19 24 No Stop Date Active ketoconazole 2 % shampoo RxNorm: 733944 Apply 1 Application Topical UD as directed 07/13/19 24 No Stop Date Active aripiprazole 15 mg tablet RxNorm: 651024 Take 1/2 Tablet(s) Oral QD 07/13/19 24 024 Inactive Ozempic 1 mg/dose (4 mg/3 mL) subcutaneous pen injector RxNorm: 3777216 Inject 1 Milligram(s) Subcutaneous QW once a week 07/13/19 24 No Stop Date Active Guaifenesin AC 10 mg-100 mg/5 mL oral liquid RxNorm: 657069 Take 10 Milliliter(s) Oral Q4H every four hours as needed 07/13/19 24 No Stop Date Active isosorbide mononitrate ER 60 mg tablet,extended release 24 hr RxNorm: 970624 Take 1 Tablet(s) Oral QD 07/13/19 24 024 Inactive ammonium lactate 12 % topical cream RxNorm: 785157 Apply 1 Application Topical BID 07/13/19 24 No Stop Date Active hydrocortisone 2.5 % topical cream RxNorm: 870372 Apply 1 Application Topical BID as needed 07/13/19 24 No Stop Date Active rosuvastatin 20 mg sprinkle capsule RxNorm: 7912444 Take 1 Capsule(s) Oral QD 07/13/19 24 No Stop Date Active Vascepa 1 gram capsule RxNorm: 5833383 Take 2 Capsule(s) Oral BID 07/13/19 24 No Stop Date Active venlafaxine ER 75 mg capsule,extended release 24 hr RxNorm: 769989 Take 3 Capsule(s) Oral QD 07/13/19 24 No Stop Date Active Basaglar KwikPen U-100 Insulin 100 unit/mL (3 mL) subcutaneous RxNorm: 3773967 Inject 30U SubQ twice daily 07/07/19 24 024 Inactive Please dispense one month supply. Basaglar KwikPen U-100 Insulin 100 unit/mL (3 mL) subcutaneous RxNorm: 4445775 Inject 30U SubQ twice daily 07/07/19 24 024 Inactive Please dispense one month supply. pregabalin 150 mg capsule RxNorm: 201968 Take 1 Capsule(s) Oral QHS every night at bedtime 07/05/19 24 024 Inactive pregabalin 150 mg capsule RxNorm: 819678 Take 1 Capsule(s) Oral QHS every night at bedtime 07/05/19 24 024 Inactive polyethylene glycol 3350 17 gram/dose oral powder RxNorm: 676670 Take 1 Packet Oral QD as needed (1 packet = 17g) mix with 4-8oz of liquid 06/15/19 024 Inactive bisacodyl 10 mg rectal suppository RxNorm: 486986 Insert one suppository per rectum once daily as needed for constipation 06/15/19 024 Inactive bisacodyl 10 mg rectal suppository RxNorm: 387453 Insert one suppository per rectum once daily as needed for constipation 06/15/19 024 Inactive pregabalin 100 mg capsule RxNorm: 842905 Take 1 Capsule(s) Oral QAM every morning 04/27/20 024 Inactive Levemir FlexPen 100 unit/mL (3 mL) solution subcutaneous insulin pen RxNorm: 627623 Inject 30 Unit(s) Subcutaneous BID 04/27/20 024 Inactive rosuvastatin 40 mg tablet RxNorm: 742684 Take 1 Tablet(s) Oral QPM every evening 04/16/20 024 Inactive D/C rosuvastatin 20mg venlafaxine ER 75 mg capsule,extended release 24 hr RxNorm: 762513 Take 3 Capsule(s) Oral QD 04/14/20 23 023 Inactive pregabalin 100 mg capsule RxNorm: 053961 Take 1 Capsule(s) Oral QAM every morning [...] meter clotrimazole 1 % topical cream RxNorm: 453929 Take apply topically to abdominal folds twice daily for 14 days 03/12/20 024 Inactive Ozempic 1 mg/dose (4 mg/3 mL) subcutaneous pen injector RxNorm: 4281265 Inject 1 Milligram(s) Subcutaneous QW once a week 03/11/20 023 Inactive rosuvastatin 20 mg tablet RxNorm: 149837 Take 1 Tablet(s) Oral QD 02/26/20 23 023 Inactive d/c pravastatin 80mg Ozempic 1 mg/dose (4 mg/3 mL) subcutaneous pen injector RxNorm: 0682876 Inject 1 Milligram(s) Subcutaneous QW once a week 02/20/20 23 023 Inactive pregabalin 150 mg capsule RxNorm: 066849 Take 1 Capsule(s) Oral HS at bed time 02/19/20 23 023 Inactive pregabalin 100 mg capsule RxNorm: 121378 Take 1 Capsule(s) Oral QAM every morning 02/18/20 023 Inactive venlafaxine ER 75 mg capsule,extended release 24 hr RxNorm: 405051 Take 3 Capsule(s) Oral QD 02/04/20 23 023 Inactive FreeStyle Chema 2 Sensor kit RxNorm: use as directed 02/04/20 23 023 Inactive FreeStyle Chema 2 Sensor kit RxNorm: use as directed 02/04/20 23 024 Inactive fluconazole 150 mg tablet RxNorm: 638076 Take 1 Tablet(s) Oral on day 3 and on day 6 02/03/20 024 Inactive chlorthalidone 25 mg tablet RxNorm: 867132 Take 1 Tablet(s) Oral QAM every morning 02/03/20 23 No Stop Date Active venlafaxine ER 150 mg capsule,extended release 24 hr RxNorm: 043428 Take 1 Capsule(s) Oral QD 02/03/20 23 023 Inactive acetaminophen 500 mg tablet RxNorm: 545957 1 TABLET ORALLY 3 TIMES DAILY (MAX APAP:4GM/24HR) 12/15/19 23 023 Inactive clotrimazole 1 % topical cream RxNorm: 816320 apply 1g topically to top of feet and in between toes BID 12/09/19 23 023 Inactive potassium chloride ER 20 mEq tablet,extended release RxNorm: 497229 Take 1 Tablet(s) Oral BID 12/09/19 23 024 Inactive d/c 20mEq once daily (sent from hospital) nystatin 100,000 unit/gram topical powder RxNorm: 971553 APPLY TO AFFECTED AREAS TOPICALLY 2 TIMES DAILY 11/21/19 024 Inactive Nystop 100,000 unit/gram topical powder RxNorm: 140088 Apply to abd folds, under breasts and L side of groin Topical BID x 14 days, then BID PRN 11/20/19 023 Inactive dx: yeast dermatitis [place] Ultra Strength 4 %-30 %-10 % topical cream RxNorm: 071661 Apply 1 Gram(s) Topical QID PRN to feet and legs for neuropathic pain 11/11/19 024 Inactive clotrimazole 1 % topical cream RxNorm: 215012 Apply 1/2 Gram(s) Topical BID Apply to affected areas of groin, periarea, and abdominal topically 2 times daily 11/10/19 023 Inactive hydrocortisone 2.5 % topical cream RxNorm: 674117 Apply 1/2 Gram(s) Topical BID as needed 11/10/19 024 Inactive Humulin R U-500 (Concentrated) Insulin 500 unit/mL subcutaneous soln RxNorm: 039071 Inject 100 Unit(s) Subcutaneous TID 10/07/19 024 Inactive Levemir FlexPen 100 unit/mL (3 mL) solution subcutaneous insulin pen RxNorm: 542486 Inject 30 Unit(s) Subcutaneous BID 10/07/19 023 Inactive Ozempic 0.25 mg or 0.5 mg (2 mg/3 mL) subcutaneous pen injector RxNorm: 9540324 Inject 1/2 Milligram(s) Subcutaneous QW once a week 10/07/19 024 Inactive aripiprazole 15 mg tablet RxNorm: 222049 1/2 TAB (7.5MG) ORALLY DAILY (DX:MAJOR DEPRESSIVE DISORDER) 09/23/19 023 Inactive Lancets,Thin 28 gauge RxNorm: Use 1 as directed QID 09/15/19 23 024 Inactive Accu-Chek Guide test strips RxNorm: Use 1 Test Strip QID 09/15/19 23 023 Inactive ok to substitute with any covered alternative test strip torsemide 20 mg tablet RxNorm: 656409 Take 1 Tablet(s) Oral BID 09/09/19 23 024 Inactive d/c once daily dosing carvedilol 25 mg tablet RxNorm: 944555 Take 1 Tablet(s) Oral QD 08/25/19 23 024 Inactive pregabalin 150 mg capsule RxNorm: 143186 1 Capsule(s) Oral HS at bed time 08/18/19 23 023 Inactive pregabalin 100 mg capsule RxNorm: 112734 1 Capsule(s) Oral QAM every morning 08/18/19 23 023 Inactive carvedilol 25 mg tablet RxNorm: 736293 1 Tablet(s) Oral QD 07/28/19 23 023 Inactive lisinopril 20 mg tablet RxNorm: 372817 Give 1 Tablet(s) Oral QD 07/28/19 23 023 Inactive Lyrica 150 mg capsule RxNorm: 463747 Take 1 Capsule(s) Oral QHS every night at bedtime 07/19/19 023 Inactive d/c 100mg dose Diflucan 150 mg tablet RxNorm: 912083 Take 1 Tablet(s) Oral QD repeat on day 3 and 6 07/19/19 23 023 Inactive pregabalin 100 mg capsule RxNorm: 361039 Take 1 Capsule(s) Oral QAM every morning 07/19/19 23 023 Inactive gatifloxacin 0.5 % eye drops RxNorm: 809401 Instill 1 Drop(s) as directed TID Instill 1 drop in to affected eye(s) starting 1 day prior to surgery and continue until gone (do not exceed 4 weeks). 07/13/19 23 023 Inactive carvedilol 25 mg tablet RxNorm: 216663 2 Tablet(s) Oral BID 07/13/19 23 023 Inactive Humulin R Regular U-100 Insulin 100 unit/mL injection solution RxNorm: 439574 85 Unit(s) Injection TID 07/13/19 23 023 Inactive ketorolac 0.5 % eye drops RxNorm: 111315 Instill 1 Drop(s) as directed QID Instill 1 drop into affected eye(s) 4 times daily starting 1 day prior to surgery and continue until gone (do not exceed 4 weeks). 07/13/19 23 023 Inactive Diflucan 150 mg tablet RxNorm: 149230 Take 1 Tablet(s) Oral QD repeat on day 3 and 6 06/30/19 23 023 Inactive Accu-Chek Guide test strips RxNorm: Use 1 Test Strip QID Use 1 test strip to monitor blood glucose 4 times daily and as needed. Dx:E11.42. 06/23/19 23 023 Inactive ok to substitute with any covered alternative test strip dextromethorphan-gu aifenesin 10 mg-100 mg/5 mL oral liquid RxNorm: 417807 Take 10 Milliliter(s) Oral every 4 hours as needed for cough 06/19/19 23 023 Inactive dextromethorphan-gu aifenesin 10 mg-100 mg/5 mL oral liquid RxNorm: 236106 Take 10 Milliliter(s) Oral every 4 hours as needed for cough 06/19/19 23 023 Inactive Lyrica 150 mg capsule RxNorm: 589982 Take 1 Capsule(s) Oral QHS every night at bedtime 06/18/19 23 023 Inactive d/c 100mg dose aripiprazole 15 mg tablet RxNorm: 583845 1/2 TAB (7.5MG) ORALLY DAILY (DX:MAJOR DEPRESSIVE DISORDER) 06/05/19 23 023 Inactive pregabalin 100 mg capsule RxNorm: 321113 1 Capsule(s) Oral QAM every morning 06/02/19 23 023 Inactive Banophen 50 mg capsule RxNorm: 2261218 Take 1 Capsule(s) Oral Q6H every 6 hours as needed 05/19/19 23 No Stop Date Active Novolog Flexpen U-100 Insulin aspart 100 unit/mL (3 mL) subcutaneous RxNorm: 6470112 Inject 10 Unit(s) Subcutaneous QHS every night at bedtime with nighttime snack 04/08/20 22 022 Inactive Novolog Flexpen U-100 Insulin aspart 100 unit/mL (3 mL) subcutaneous RxNorm: 5012784 Inject 42 Unit(s) Subcutaneous TID in addition to sliding scale 04/08/20 022 Inactive d/c 36u albuterol sulfate HFA 90 mcg/actuation aerosol inhaler RxNorm: 3243697 Take 2 Puff(s) Inhalation Q4H every four hours as needed as needed for SOB, cough, or wheezing 04/07/20 030 Active Banophen 50 mg capsule RxNorm: 9649254 Take 1 Capsule(s) Oral Q6H every 6 hours as needed 04/06/20 023 Inactive diphenhydramine 50 mg tablet RxNorm: 3558739 Take 1 Tablet(s) Oral Q6H every 6 hours as needed 04/06/20 022 Inactive diphenhydramine 50 mg tablet RxNorm: 8281400 1 Tablet(s) Oral Q6H every 6 hours as needed 04/06/20 022 Inactive Abilify 15 mg tablet RxNorm: 961601 1/2 Tablet(s) Oral QD 03/10/20 023 Inactive Shingrix (PF) 50 mcg/0.5 mL intramuscular suspension, kit RxNorm: 2790762 Administer 1/2 Milliliter(s) Intramuscular QD one time shingrix step 2 ( step 1 given 11/04/21) WITH needle - Nursing please administer upon arrival and once administered post a bridge message with date of administration, account executive sales representative, expiration date, and lot# so we can update [facility] 02/18/20 22 022 Inactive dispense with needle Shingrix (PF) 50 mcg/0.5 mL intramuscular suspension, kit RxNorm: 6290361 Administer 1/2 Milliliter(s) Intramuscular QD one time shingrix step 2 ( step 1 given 11/04/21) WITH needle - Nursing please administer upon arrival and once administered post a bridge message with date of administration, account executive sales representative, expiration date, and lot# so we can update [facility] 02/18/20 22 022 Inactive dispense with needle polyethylene glycol 3350 17 gram/dose oral powder RxNorm: 410721 Take 17=1 capful Gram(s) Oral QD mix with 4-8oz of liquid 01/08/20 22 023 Inactive take this in addition to BID prn order Lyrica 100 mg capsule RxNorm: 857458 Take 1 Capsule(s) Oral QAM every morning 01/08/20 22 022 Inactive d/c 50mg dose acetaminophen 500 mg tablet RxNorm: 679228 Take 1 Tablet(s) Oral TID 01/08/20 22 022 Inactive d/c PRN order Lyrica 150 mg capsule RxNorm: 521733 Take 1 Capsule(s) Oral QHS every night at bedtime 01/08/20 22 023 Inactive d/c 100mg dose Abilify 5 mg tablet RxNorm: 144003 Take 1 Tablet(s) Oral QD take 1 tab po QD #30 refill 5 dx: MDD 12/12/19 22 022 Inactive Abilify 5 mg tablet RxNorm: 612241 Take 1 Tablet(s) Oral QD take 1 tab po QD #30 refill 5 dx: MDD 12/12/19 22 022 Inactive Novolog Flexpen U-100 Insulin aspart 100 unit/mL (3 mL) subcutaneous RxNorm: 7136094 Inject 42 Unit(s) Subcutaneous TID in addition to sliding scale 12/10/19 22 022 Inactive d/c 36u chlorthalidone 25 mg tablet RxNorm: 145596 Take 1 Tablet(s) Oral QAM every morning 12/10/19 22 023 Inactive pregabalin 50 mg capsule RxNorm: 507807 Take 1 Capsule(s) Oral QAM every morning 11/12/19 22 022 Inactive tetanus-diphtheria toxoids-Td 2 Lf unit-2 Lf unit/0.5 mL IM suspension RxNorm: 139 Take 0.5 Miscellaneous Intramuscular 11/12/19 22 022 Inactive need tdap - nursing to administer upon arrival pregabalin 50 mg capsule RxNorm: 212582 Take 1 Capsule(s) Oral QAM every morning 10/16/19 22 022 Inactive pregabalin 50 mg capsule RxNorm: 021510 Take 1 Capsule(s) Oral QAM every morning 10/16/19 22 022 Inactive pregabalin 50 mg capsule RxNorm: 444676 1 Capsule(s) Oral QAM every morning 10/15/19 22 022 Inactive Shingrix (PF) 50 mcg/0.5 mL intramuscular suspension, kit RxNorm: 2332034 Administer 1/2 Milliliter(s) Intramuscular one time Nursing please administer upon arrival and once administered post a bridge message with date of administration, account executive sales representative, expiration date, and lot# so we can update [facility]. 10/09/19 22 022 Inactive shingrix step 1 Shingrix (PF) 50 mcg/0.5 mL intramuscular suspension, kit RxNorm: 5436405 Administer 1/2 Milliliter(s) Intramuscular one time Nursing please administer upon arrival and once administered post a bridge message with date of administration, account executive sales representative, expiration date, and lot# so we can update [facility]. 10/09/19 22 022 Inactive shingrix step 1 cholecalciferol (vitamin D3) 1,250 mcg (50,000 unit) capsule RxNorm: 590936 Take 1 Capsule(s) Oral QW once a [...] aspart 100 unit/mL (3 mL) subcutaneous RxNorm: 8284956 Inject 10 Unit(s) Subcutaneous QHS every night at bedtime with nighttime snack 10/08/19 22 022 Inactive Shingrix (PF) 50 mcg/0.5 mL intramuscular suspension, kit RxNorm: 4417623 ADMINISTER 2-DOSE SERIES PER CDC GUIDELINES 10/08/19 22 05/23/2 022 Active Shingrix (PF) 50 mcg/0.5 mL intramuscular suspension, kit RxNorm: 2500718 ADMINISTER 2-DOSE SERIES PER CDC GUIDELINES 10/08/19 22 Inactive Novolog Flexpen U-100 Insulin aspart 100 unit/mL (3 mL) subcutaneous RxNorm: 2058347 Inject 36 Unit(s) Subcutaneous TID in addition to sliding scale 10/08/19 Inactive Novofine Autocover 30 gauge x 1/3 needle RxNorm: Use 1 Miscellaneous UD as directed Use 1 needle as directed to administer insulin 5 times a day Dx:E11.42. 10/03/19 Inactive ok to substitute with any covered alternative pen needle benzoyl peroxide 10 % topical cleanser RxNorm: 688044 Apply 1 Application Topical QD apply to face, wash rinse and dry once daily (may change to QOD if drying) 08/19/19 Inactive (%covered by insurance) #60ml refill 11 dx: acne benzoyl peroxide 10 % topical cleanser RxNorm: 028860 Apply 1 Application Topical QD apply to face, wash rinse and dry once daily (may change to QOD if drying) 08/19/19 022 Inactive (%covered by insurance) #60ml refill 11 dx: acne benzoyl peroxide 10 % topical cleanser RxNorm: 001320 Apply 1 Application Topical QD apply to face, wash rinse and dry once daily (may change to QOD if drying) 08/19/19 022 Inactive (%covered by insurance) #60ml refill 11 dx: acne Lyrica 50 mg capsule RxNorm: 327443 Take 1 Capsule(s) Oral QAM every morning Take 1 capsule by mouth once daily 08/19/19 22 022 Inactive benzoyl peroxide 10 % topical cleanser RxNorm: 757559 Apply 1 Application Topical QD apply to face, wash rinse and dry once daily (may change to QOD if drying) 08/19/19 22 022 Inactive (%covered by insurance) #60ml refill 11 dx: acne Lyrica 100 mg capsule RxNorm: 829113 Take 1 Capsule(s) Oral QHS every night at bedtime Take 1 capsule by mouth once daily at bedtime 08/19/19 22 022 Inactive Lyrica 100 mg capsule RxNorm: 194196 Take 1 Capsule(s) Oral QHS every night at bedtime Take 1 capsule by mouth once daily at bedtime 08/16/19 22 022 Inactive Lyrica 50 mg capsule RxNorm: 301130 Take 1 Capsule(s) Oral QAM every morning Take 1 capsule by mouth once daily 08/16/19 22 022 Inactive Levemir FlexTouch U-100 Insulin 100 unit/mL (3 mL) subcutaneous pen RxNorm: 081981 Inject 86 Unit(s) Subcutaneous BID 08/05/19 22 022 Inactive d/c 83units BID Lyrica 100 mg capsule RxNorm: 329916 Take 1 Capsule(s) Oral QHS every night at bedtime Take 1 capsule by mouth once daily at bedtime 07/14/19 22 022 Inactive Lyrica 50 mg capsule RxNorm: 859678 Take 1 Capsule(s) Oral QAM every morning Take 1 capsule by mouth once daily 07/14/19 22 022 Inactive Levemir FlexTouch U-100 Insulin 100 unit/mL (3 mL) subcutaneous pen RxNorm: 036017 Inject 83 Unit(s) Subcutaneous BID 07/08/19 22 [...] test strip hydralazine 50 mg tablet RxNorm: 789948 Take 1 Tablet(s) Oral QID 05/05/20 21 022 Inactive venlafaxine ER 225 mg tablet,extended release 24 hr RxNorm: 483514 Take 1 Tablet(s) Oral QD 05/05/20 21 021 Inactive venlafaxine ER 225 mg tablet,extended release 24 hr RxNorm: 408394 Take 1 Tablet(s) Oral QD 05/05/20 21 022 Inactive isosorbide mononitrate ER 30 mg tablet,extended release 24 hr RxNorm: 875758 Take 1 Tablet(s) Oral QD 05/05/20 21 024 Inactive hydralazine 50 mg tablet RxNorm: 558210 Take 1 Tablet(s) Oral QID 05/05/20 21 021 Inactive aspirin 81 mg tablet,delayed release RxNorm: 409612 Take 1 Tablet(s) Oral QD 03/31/20 21 022 Inactive Vitamin D2 1,250 mcg (50,000 unit) capsule RxNorm: 3828277 Take 1 Capsule(s) Oral QW once a week x 12 weeks 03/31/20 21 022 Inactive Vitamin D2 1,250 mcg (50,000 unit) capsule RxNorm: 0998160 Take 1 Capsule(s) Oral QW once a week 03/31/20 021 Inactive Zetia 10 mg tablet RxNorm: 777849 Take 1 Tablet(s) Oral QD 03/31/20 024 Inactive Zetia 10 mg tablet RxNorm: 900340 Take 1 Tablet(s) Oral QD 03/31/20 021 Inactive hydralazine 25 mg tablet RxNorm: 216860 Take 1 Tablet(s) Oral QID 03/31/20 021 Inactive hydralazine 25 mg tablet RxNorm: 953980 Take 1 Tablet(s) Oral QID 03/31/20 021 Inactive hydralazine 10 mg tablet RxNorm: 625989 Take 1 Tablet(s) Oral QID 03/03/20 021 Inactive cephalexin 500 mg tablet RxNorm: 147794 Take 1 Tablet(s) Oral QID 02/27/20 021 Inactive cephalexin 500 mg tablet RxNorm: 456177 Take 1 Tablet(s) Oral QID 02/27/20 021 Inactive lisinopril 40 mg tablet RxNorm: 781912 Take 1 Tablet(s) Oral QD 02/11/20 023 Inactive Eliquis 5 mg tablet RxNorm: 3218094 Take 1 Tablet(s) Oral BID 01/05/20 022 Inactive Eliquis 5 mg tablet RxNorm: 2571919 Take 2 Tablet(s) Oral QD 01/01/20 21 021 Inactive Lyrica 50 mg capsule RxNorm: 123726 Take 1 Capsule(s) Oral QAM every morning 12/24/19 021 Inactive Lyrica 100 mg capsule RxNorm: 176164 Take 1 Capsule(s) Oral QHS every night at bedtime 12/24/19 21 021 Inactive clotrimazole 1 % topical cream RxNorm: 531539 Apply to right foot and toes Topical BID 12/04/19 21 023 Inactive metoprolol succinate ER 200 mg tablet,extended release 24 hr RxNorm: 097550 Take 1 Tablet(s) Oral QD 12/04/19 21 023 Inactive ciprofloxacin 500 mg tablet RxNorm: 333535 Take 1 Tablet(s) Oral QD 11/30/19 21 021 Inactive DX ofloxacin otic drops Accu-Chek Guide test strips RxNorm: USE 1 TO CHECK GLUCOSE 4 TIMES DAILY AND NEEDED 11/15/19 21 023 Inactive Blood Glucose Test strips RxNorm: Use 1 Test Strip QID at PRN 11/05/19 21 023 Inactive E11.42 lisinopril 30 mg tablet RxNorm: 655438 Take 1 Tablet(s) Oral QD 10/30/19 021 Inactive lisinopril 20 mg tablet RxNorm: 396849 Take 1 Tablet(s) Oral QD 10/23/19 021 Inactive lisinopril 20 mg tablet RxNorm: 482859 Take 1 Tablet(s) Oral QD 10/23/19 021 Inactive lisinopril 10 mg tablet RxNorm: 564438 Take 1 Tablet(s) Oral QD 10/02/19 021 Inactive icosapent ethyl 1 gram capsule RxNorm: 5024139 Take 2 Capsule(s) (2 gm) Oral BID with meals 09/12/19 024 Inactive Okay to dispense one 2gm tab if you have that available. icosapent ethyl 1 gram capsule RxNorm: 5586832 Take 2 Capsule(s) Oral BID 09/12/19 21 021 Inactive Okay to dispense one 2gm tab if you have that available. amlodipine 10 mg tablet RxNorm: 350287 Take 1 Tablet(s) Oral QD 09/04/19 21 022 Inactive aspirin 81 mg tablet,delayed release RxNorm: 381441 Take 1 Tablet(s) Oral QD 09/04/19 21 021 Inactive Levemir FlexTouch U-100 Insulin 100 unit/mL (3 mL) subcutaneous pen RxNorm: 550750 Inject 150 Unit(s) Subcutaneous BID 09/04/19 21 022 Inactive venlafaxine ER 150 mg tablet,extended release 24 hr RxNorm: 923806 Take 1 Tablet(s) Oral QD 09/04/19 Inactive clotrimazole-betame thasone 1 %-0.05 % topical cream RxNorm: 091518 Apply to rash on red area on left abdomen/chest Topical BID 08/10/19 21 Inactive amlodipine 5 mg tablet RxNorm: 674806 Take 1 Tablet(s) Oral QD 07/31/19 Inactive cephalexin 500 mg tablet RxNorm: 873868 Take 1 Tablet(s) Oral BID BID - Twice Daily 07/31/19 Inactive Start 08/01/20 pantoprazole 40 mg tablet,delayed release RxNorm: 013224 Take 1 Tablet(s) Oral QAM every morning 07/08/19 Inactive senna 8.6 mg tablet RxNorm: 225962 Take 1 Tablet(s) Oral QD 07/08/19 Inactive carbamazepine 200 mg tablet RxNorm: 435605 Take 1 Tablet(s) Oral BID 07/08/19 Inactive clopidogrel 75 mg tablet RxNorm: 146634 Take 1 Tablet(s) Oral QD 07/08/19 Inactive Blood Glucose Test strips RxNorm: Use 1 Test Strip QID at PRN 07/08/19 21 Inactive E11.42 Novolog Flexpen U-100 Insulin aspart 100 unit/mL (3 mL) subcutaneous RxNorm: 7692269 Administer per sliding scale Milliliter(s) Subcutaneous TID 151-200: 10 u; 201-250: 20 u; 251-300: 30 u; 301-350: 40 u; 351-400: 50 u. 07/08/19 Inactive lisinopril 5 mg tablet RxNorm: 547869 Take 1 Tablet(s) Oral QD 07/08/19 Inactive Novolog Flexpen U-100 Insulin aspart 100 unit/mL (3 mL) subcutaneous RxNorm: 8829650 Inject 85 Unit(s) Subcutaneous TID 07/08/19 Inactive pravastatin 80 mg tablet RxNorm: 675505 Take 1 Tablet(s) Oral QHS every night at bedtime 07/08/19 023 Inactive clotrimazole 1 % topical cream RxNorm: 166679 Apply to bilateral groin areas Topical BID 07/08/19 022 Inactive metoprolol succinate ER 200 mg tablet,extended release 24 hr RxNorm: 190736 Take 1 Tablet(s) Oral QD 07/08/19 021 Inactive Vitamin D3 25 mcg (1,000 unit) tablet RxNorm: 323747 Take 1 Tablet(s) Oral QD 07/08/19 021 Inactive isosorbide dinitrate 30 mg tablet RxNorm: 139007 Take 1 Tablet(s) Oral QD 07/08/19 021 Inactive Levemir FlexTouch U-100 Insulin 100 unit/mL (3 mL) subcutaneous pen RxNorm: 642519 Inject 140 Unit(s) Subcutaneous BID 07/08/19 021 Inactive torsemide 20 mg tablet RxNorm: 905706 Take 1 Tablet(s) Oral QD 07/08/19 023 Inactive venlafaxine 75 mg tablet RxNorm: 725609 Take 1 Tablet(s) Oral QD 07/08/19 021 Inactive acetaminophen 500 mg tablet RxNorm: 469201 Take 1 Tablet(s) Oral TID as needed for headache 06/18/19 021 Inactive acetaminophen 500 mg tablet RxNorm: 161927 Take 1 Tablet(s) Oral TID as needed for headache 06/18/19 021 Inactive Lyrica 100 mg capsule RxNorm: 535139 Take 1 Capsule(s) Oral QHS every night at bedtime 06/11/19 021 Inactive Lyrica 50 mg capsule RxNorm: 904222 Take 1 Capsule(s) Oral QAM every morning 06/10/19 021 Inactive hydrocortisone 2.5 % topical cream RxNorm: 445411 Apply to bilateral groin creases Topical BID 05/15/20 20 021 Inactive clotrimazole 1 % topical cream RxNorm: 093544 Apply to bilateral groin areas Topical BID 05/15/20 20 Inactive Lyrica 50 mg capsule RxNorm: 415870 Take 1 Capsule(s) Oral QAM every morning 05/14/20 20 Inactive Lyrica 100 mg capsule RxNorm: 020027 Take 1 Capsule(s) Oral QHS every night [...] Inactive Nystop 100,000 unit/gram topical powder RxNorm: 823312 Apply to abd folds, under breasts and L side of groin Topical BID x 14 days, then BID PRN 04/08/20 20 Inactive dx: yeast dermatitis Lyrica 100 mg capsule RxNorm: 222410 Take 1 Capsule(s) Oral QHS every night at bedtime 03/13/20 20 Inactive Lyrica 50 mg capsule RxNorm: 066389 Take 1 Capsule(s) Oral QAM every morning 03/13/20 20 Inactive ketoconazole 2 % shampoo RxNorm: 193198 Apply Topical two times a week with showers 03/11/20 20 024 Inactive cholecalciferol (vitamin D3) 50 mcg (2,000 unit) tablet RxNorm: 288544 Take 1 Tablet(s) Oral QD 03/11/20 20 021 Inactive Zetia 10 mg tablet RxNorm: 359604 Take 1 Tablet(s) Oral QD 03/07/20 20 021 Inactive Zetia 10 mg tablet RxNorm: 254415 Take 1 Tablet(s) Oral QD 03/07/20 20 020 Inactive Lyrica 50 mg capsule RxNorm: 171580 Take 1 Capsule(s) Oral QAM every morning 02/15/20 20 Inactive Lyrica 100 mg capsule RxNorm: 686538 Take 1 Capsule(s) Oral QHS every night at bedtime 02/15/20 20 020 Inactive Lyrica 100 mg capsule RxNorm: 389512 Take 1 Capsule(s) Oral QHS every night at bedtime 02/15/20 Inactive Lyrica 50 mg capsule RxNorm: 154866 Take 1 Capsule(s) Oral QAM every morning 02/15/20 20 Inactive metoprolol succinate ER 200 mg tablet,extended release 24 hr RxNorm: 767795 Take 1 Tablet(s) Oral QD 08/12/19 23 Active loperamide 2 mg capsule RxNorm: 384914 Take 1 Capsule(s) Oral QID as needed 06/12/19 22 Active hydralazine 50 mg tablet RxNorm: 378596 Take 1 Tablet(s) Oral QID 08/12/19 23 Active venlafaxine ER 75 mg capsule,extended release 24 hr RxNorm: 626655 Take 3 Capsule(s) Oral QD 06/12/19 22 023 Inactive polyethylene glycol 3350 17 gram/dose oral powder RxNorm: 803136 Take 17=1 capful Gram(s) Oral BID as needed mix with 4-8oz of liquid 06/12/19 22 024 Inactive icosapent ethyl 1 gram capsule RxNorm: 1711061 Take 2 Capsule(s) (2 gm) Oral BID with meals 10/07/19 23 023 Inactive Okay to dispense one 2gm tab if you have that available. Levemir FlexTouch U-100 Insulin 100 unit/mL (3 mL) subcutaneous pen RxNorm: 746731 Inject 80 Unit(s) Subcutaneous BID 07/14/19 23 023 Inactive Novolog Flexpen U-100 Insulin aspart 100 unit/mL (3 mL) subcutaneous RxNorm: 3401818 Insert 30 Unit(s) Subcutaneous TID with meals [...] [facility]: [address], [address] [id number] [place] Referral Records Received 09/21/2022 Referral: [facility] [place]: [address] [id number] [place] Referral Completed 05/28/2021 Referral: General Cardiology Referral Complet ed 01/03/2021 Referral: General Psychologist Referral Close d Referral: General Psychiatrist Referral Patient/Family Scheduling Appointment Referral: General Outpatient Therapy Referral Initiated Instructions Comment Date Leonid is a?? Male being seen living at [facility]. Initial [facility] visit 01/2020. PMHx including DMII, CAD w/ 5 stents, Depression, Seizure Disorder and CKD stage 3. He moved into [facility] in 12/2019 but after a hospitalization 05/2021 he moved to the [facility] to have closer nursing attention.??Sister Jyotsna involved in his care cell# [phone]??Guardian: Don (tapan met in person 09/01/21), now has Lexii (same group as don)AWV ..??Lab Schedule: /September*September (CBC with diff, CMP, A1c)??March: [...] )??Bobbi note from 11.08.2023 at [facility] (follow up 6 months)Colon & Rectal Surgery visit scheduled for 03/08/24 with Matilde Pérez PA-C.?? 02/08/2024
[2024-02-19 13:21] LABS: Slide Review Reflex No
--- OUTSIDE RECORDS SUMMARY | 2024-02-19 13:21 | XMS_ITS | CCD ---
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 Name Role Phone Arpit MENDOZA Harrison Primary Care Provider Leona vailable Arpit ARLENParker Harrison Chronic Care Management U navailable Summary Purpose DataExchange Insurance Providers Payer name Policy type / Coverage type Covered democrat ID Effective Begin Date Effective End Date [place] Part B [id number] Unknown Unknown Medicaid ID Medicare Part B [id number] Unknown Unknown Family history Sister Brittany uSggs Diagnosis Age At Onset No Family Disease Entered N/A Runs in the family Diagnosis Age At Onset No Known Diseases N/A Sister Blanka Mcduffie Diagnosis Age At Onset No Family Disease Entered N/A Social History Social History Element Codes Description Effec tive Dates Tobacco history SNOMED CT: 379014552 Never smoker 01/16 Sexually Active? 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 ICD-10: Z79.4 [...] Fill Instructions pregabalin 100 mg capsule RxNorm: 766994 Take 1 Capsule(s) Oral QAM every morning 02/07/20 24 024 Active isosorbide mononitrate ER 60 mg tablet,extended release 24 hr RxNorm: 374905 Take 1 Tablet(s) Oral QD 02/01/20 24 025 Active aripiprazole 15 mg tablet RxNorm: 006543 Take 1/2 Tablet(s) Oral QD 02/01/20 24 025 Active torsemide 20 mg tablet RxNorm: 638413 1 TAB ORALLY DAILY (DX: EDEMA) 01/27/20 24 No Stop Date Active potassium chloride ER 20 mEq tablet,extended release(part/cryst) RxNorm: 0431103 2 TABS (40MEQ) ORALLY TWICE DAILY (DX: HYPOKALEMIA) 01/27/20 No Stop Date Active cephalexin 500 mg capsule RxNorm: 407603 Take 1 Capsule(s) Oral QID 12/17/19 24 Inactive cephalexin 500 mg capsule RxNorm: 511899 Take 1 Capsule(s) Oral QID 12/17/19 24 Inactive acetaminophen 500 mg tablet RxNorm: 114594 (MAX APAP:4GM/24HR) Take 1 Tablet(s) Oral TID as needed for pain 12/10/19 24 Active torsemide 20 mg tablet RxNorm: 502301 Take 1 Tablet(s) Oral QD 10/26/19 24 024 Inactive potassium chloride ER 20 mEq tablet,extended release RxNorm: 19800522 Take 2 Tablet(s) Oral BID 10/26/19 24 Active torsemide 20 mg tablet RxNorm: 041440 Take 1 Tablet(s) Oral QD 10/26/19 24 Inactive potassium chloride ER 20 mEq tablet,extended release RxNorm: 534453 Take 2 Tablet(s) Oral BID 10/26/19 24 Inactive Artificial Tears (PF) 0.1 %-0.3 % drops in a dropperette RxNorm: 791128 Apply 1-2 Drop(s) Both eyes BID as needed 09/28/19 24 025 Active erythromycin 5 mg/gram (0.5 %) eye ointment RxNorm: 298323 Apply 1 Application Both eyes QHS every night at bedtime Instill ~1 cm ribbon into affected eye 09/28/19 24 Inactive Artificial Tears (PF) 0.1 %-0.3 % drops in a dropperette RxNorm: 935790 Apply 1-2 Drop(s) Both eyes BID as needed 09/28/19 24 024 Inactive erythromycin 5 mg/gram (0.5 %) eye ointment RxNorm: 974304 Apply 1 Application Both eyes QHS every night at bedtime Instill ~1 cm ribbon into affected eye 09/28/19 24 Inactive acetaminophen 500 mg tablet RxNorm: 094546 (MAX APAP:4GM/24HR) Take 1 Tablet(s) Oral TID as needed for pain 09/24/19 24 024 Inactive carvedilol 25 mg tablet RxNorm: 469949 Take 1 Tablet(s) Oral QD 09/08/19 24 No Stop Date Active pregabalin 100 mg capsule RxNorm: 441123 Take 1 Capsule(s) Oral QAM every morning 09/07/19 24 024 Inactive rosuvastatin 40 mg tablet RxNorm: 546797 Take 1 Tablet(s) Oral QPM every evening 07/13/19 24 No Stop Date Active ezetimibe 10 mg tablet RxNorm: 026380 Take 1 Tablet(s) Oral QD 07/13/19 24 No Stop Date Active bisacodyl 10 mg rectal suppository RxNorm: 174883 Insert 1 Suppository Rectal QD as needed 07/13/19 24 No Stop Date Active polyethylene glycol 3350 17 gram/dose oral powder RxNorm: 768768 Take 17 Gram(s) Oral BID as needed mix in 4-8ox water 07/13/19 24 No Stop Date Active ketoconazole 2 % shampoo RxNorm: 596842 Apply 1 Application Topical UD as directed 07/13/19 24 No Stop Date Active Ozempic 1 mg/dose (4 mg/3 mL) subcutaneous pen injector RxNorm: 2399569 Inject 1 Milligram(s) Subcutaneous QW once a week 07/13/19 24 No Stop Date Active Guaifenesin AC 10 mg-100 mg/5 mL oral liquid RxNorm: 774852 Take 10 Milliliter(s) Oral Q4H every four hours as needed 07/13/19 24 No Stop Date Active ammonium lactate 12 % topical cream RxNorm: 975496 Apply 1 Application Topical BID 07/13/19 24 No Stop Date Active hydrocortisone 2.5 % topical cream RxNorm: 808034 Apply 1 Application Topical BID as needed 07/13/19 24 No Stop Date Active rosuvastatin 20 mg sprinkle capsule RxNorm: 5981413 Take 1 Capsule(s) Oral QD 07/13/19 24 No Stop Date Active Vascepa 1 gram capsule RxNorm: 2996570 Take 2 Capsule(s) Oral BID 07/13/19 24 No Stop Date Active venlafaxine ER 75 mg capsule,extended release 24 hr RxNorm: 540409 Take 3 Capsule(s) Oral QD 07/13/19 24 No Stop Date Active aripiprazole 15 mg tablet RxNorm: 423808 Take 1/2 Tablet(s) Oral QD 07/13/19 24 024 Inactive isosorbide mononitrate ER 60 mg tablet,extended release 24 hr RxNorm: 956621 Take 1 Tablet(s) Oral QD 07/13/19 24 024 Inactive Basaglar KwikPen U-100 Insulin 100 unit/mL (3 mL) subcutaneous RxNorm: 2808623 Inject 30U SubQ twice daily 07/07/19 24 024 Inactive Please dispense one month supply. Basaglar KwikPen U-100 Insulin 100 unit/mL (3 mL) subcutaneous RxNorm: 2638785 Inject 30U SubQ twice daily 07/07/19 24 024 Inactive Please dispense one month supply. pregabalin 150 mg capsule RxNorm: 703694 Take 1 Capsule(s) Oral QHS every night at bedtime 07/05/19 24 024 Inactive pregabalin 150 mg capsule RxNorm: 851926 Take 1 Capsule(s) Oral QHS every night at bedtime 07/05/19 24 024 Inactive polyethylene glycol 3350 17 gram/dose oral powder RxNorm: 231089 Take 1 Packet Oral QD as needed (1 packet = 17g) mix with 4-8oz of liquid 06/15/19 24 024 Inactive bisacodyl 10 mg rectal suppository RxNorm: 193015 Insert one suppository per rectum once daily as needed for constipation 06/15/19 24 024 Inactive bisacodyl 10 mg rectal suppository RxNorm: 315218 Insert one suppository per rectum once daily as needed for constipation 06/15/19 24 024 Inactive pregabalin 100 mg capsule RxNorm: 586431 Take 1 Capsule(s) Oral QAM every morning 04/27/20 23 024 Inactive Levemir FlexPen 100 unit/mL (3 mL) solution subcutaneous insulin pen RxNorm: 589483 Inject 30 Unit(s) Subcutaneous BID 04/27/20 23 024 Inactive rosuvastatin 40 mg tablet RxNorm: 157266 Take 1 Tablet(s) Oral QPM every evening 04/16/20 024 Inactive D/C rosuvastatin 20mg venlafaxine ER 75 mg capsule,extended release 24 hr RxNorm: 210999 Take 3 Capsule(s) Oral QD 04/14/20 023 Inactive pregabalin 100 mg capsule RxNorm: 629542 Take 1 Capsule(s) Oral QAM every morning [...] meter clotrimazole 1 % topical cream RxNorm: 885517 Take apply topically to abdominal folds twice daily for 14 days 03/12/20 024 Inactive Ozempic 1 mg/dose (4 mg/3 mL) subcutaneous pen injector RxNorm: 6997623 Inject 1 Milligram(s) Subcutaneous QW once a week 03/11/20 023 Inactive rosuvastatin 20 mg tablet RxNorm: 180806 Take 1 Tablet(s) Oral QD 02/26/20 23 023 Inactive d/c pravastatin 80mg Ozempic 1 mg/dose (4 mg/3 mL) subcutaneous pen injector RxNorm: 7697933 Inject 1 Milligram(s) Subcutaneous QW once a week 02/20/20 23 023 Inactive pregabalin 150 mg capsule RxNorm: 449299 Take 1 Capsule(s) Oral HS at bed time 02/19/20 23 023 Inactive pregabalin 100 mg capsule RxNorm: 800537 Take 1 Capsule(s) Oral QAM every morning 02/18/20 23 023 Inactive venlafaxine ER 75 mg capsule,extended release 24 hr RxNorm: 324081 Take 3 Capsule(s) Oral QD 02/04/20 23 023 Inactive FreeStyle Chema 2 Sensor kit RxNorm: use as directed 02/04/20 23 023 Inactive FreeStyle Chema 2 Sensor kit RxNorm: use as directed 02/04/20 23 024 Inactive fluconazole 150 mg tablet RxNorm: 426045 Take 1 Tablet(s) Oral on day 3 and on day 6 02/03/20 024 Inactive chlorthalidone 25 mg tablet RxNorm: 270493 Take 1 Tablet(s) Oral QAM every morning 02/03/20 No Stop Date Active venlafaxine ER 150 mg capsule,extended release 24 hr RxNorm: 120211 Take 1 Capsule(s) Oral QD 02/03/20 23 023 Inactive acetaminophen 500 mg tablet RxNorm: 766543 1 TABLET ORALLY 3 TIMES DAILY (MAX APAP:4GM/24HR) 12/15/19 23 023 Inactive clotrimazole 1 % topical cream RxNorm: 373070 apply 1g topically to top of feet and in between toes BID 12/09/19 23 023 Inactive potassium chloride ER 20 mEq tablet,extended release RxNorm: 845444 Take 1 Tablet(s) Oral BID 12/09/19 23 024 Inactive d/c 20mEq once daily (sent from hospital) nystatin 100,000 unit/gram topical powder RxNorm: 344804 APPLY TO AFFECTED AREAS TOPICALLY 2 TIMES DAILY 11/21/19 23 024 Inactive Nystop 100,000 unit/gram topical powder RxNorm: 704286 Apply to abd folds, under breasts and L side of groin Topical BID x 14 days, then BID PRN 11/20/19 23 023 Inactive dx: yeast dermatitis Bengay Ultra Strength 4 %-30 %-10 % topical cream RxNorm: 972242 Apply 1 Gram(s) Topical QID PRN to feet and legs for neuropathic pain 11/11/19 23 024 Inactive clotrimazole 1 % topical cream RxNorm: 622099 Apply 1/2 Gram(s) Topical BID Apply to affected areas of groin, periarea, and abdominal topically 2 times daily 11/10/19 023 Inactive hydrocortisone 2.5 % topical cream RxNorm: 539642 Apply 1/2 Gram(s) Topical BID as needed 11/10/19 024 Inactive Humulin R U-500 (Concentrated) Insulin 500 unit/mL subcutaneous soln RxNorm: 102050 Inject 100 Unit(s) Subcutaneous TID 10/07/19 024 Inactive Levemir FlexPen 100 unit/mL (3 mL) solution subcutaneous insulin pen RxNorm: 665361 Inject 30 Unit(s) Subcutaneous BID 10/07/19 023 Inactive Ozempic 0.25 mg or 0.5 mg (2 mg/3 mL) subcutaneous pen injector RxNorm: 3282432 Inject 1/2 Milligram(s) Subcutaneous QW once a week 10/07/19 024 Inactive aripiprazole 15 mg tablet RxNorm: 451939 1/2 TAB (7.5MG) ORALLY DAILY (DX:MAJOR DEPRESSIVE DISORDER) 09/23/19 023 Inactive Lancets,Thin 28 gauge RxNorm: Use 1 as directed QID 09/15/19 23 024 Inactive Accu-Chek Guide test strips RxNorm: Use 1 Test Strip QID 09/15/19 023 Inactive ok to substitute with any covered alternative test strip torsemide 20 mg tablet RxNorm: 279414 Take 1 Tablet(s) Oral BID 09/09/19 024 Inactive d/c once daily dosing carvedilol 25 mg tablet RxNorm: 909144 Take 1 Tablet(s) Oral QD 08/25/19 024 Inactive pregabalin 150 mg capsule RxNorm: 196985 1 Capsule(s) Oral HS at bed time 08/18/19 023 Inactive pregabalin 100 mg capsule RxNorm: 276779 1 Capsule(s) Oral QAM every morning 08/18/19 023 Inactive carvedilol 25 mg tablet RxNorm: 570879 1 Tablet(s) Oral QD 07/28/19 23 023 Inactive lisinopril 20 mg tablet RxNorm: 746331 Give 1 Tablet(s) Oral QD 07/28/19 23 023 Inactive Lyrica 150 mg capsule RxNorm: 775651 Take 1 Capsule(s) Oral QHS every night at bedtime 07/19/19 23 023 Inactive d/c 100mg dose Diflucan 150 mg tablet RxNorm: 975625 Take 1 Tablet(s) Oral QD repeat on day 3 and 6 07/19/19 23 023 Inactive pregabalin 100 mg capsule RxNorm: 481977 Take 1 Capsule(s) Oral QAM every morning 07/19/19 023 Inactive gatifloxacin 0.5 % eye drops RxNorm: 974263 Instill 1 Drop(s) as directed TID Instill 1 drop in to affected eye(s) starting 1 day prior to surgery and continue until gone (do not exceed 4 weeks). 07/13/19 23 023 Inactive carvedilol 25 mg tablet RxNorm: 118158 2 Tablet(s) Oral BID 07/13/19 23 023 Inactive Humulin R Regular U-100 Insulin 100 unit/mL injection solution RxNorm: 252825 85 Unit(s) Injection TID 07/13/19 23 023 Inactive ketorolac 0.5 % eye drops RxNorm: 205255 Instill 1 Drop(s) as directed QID Instill 1 drop into affected eye(s) 4 times daily starting 1 day prior to surgery and continue until gone (do not exceed 4 weeks). 07/13/19 23 023 Inactive Diflucan 150 mg tablet RxNorm: 264019 Take 1 Tablet(s) Oral QD repeat on day 3 and 6 06/30/19 23 023 Inactive Accu-Chek Guide test strips RxNorm: Use 1 Test Strip QID Use 1 test strip to monitor blood glucose 4 times daily and as needed. Dx:E11.42. 06/23/19 23 023 Inactive ok to substitute with any covered alternative test strip dextromethorphan-gu aifenesin 10 mg-100 mg/5 mL oral liquid RxNorm: 016948 Take 10 Milliliter(s) Oral every 4 hours as needed for cough 06/19/19 23 023 Inactive dextromethorphan-gu aifenesin 10 mg-100 mg/5 mL oral liquid RxNorm: 038277 Take 10 Milliliter(s) Oral every 4 hours as needed for cough 06/19/19 023 Inactive Lyrica 150 mg capsule RxNorm: 479711 Take 1 Capsule(s) Oral QHS every night at bedtime 06/18/19 023 Inactive d/c 100mg dose aripiprazole 15 mg tablet RxNorm: 607688 /2 TAB (7.5MG) ORALLY DAILY (DX:MAJOR DEPRESSIVE DISORDER) 06/05/19 023 Inactive pregabalin 100 mg capsule RxNorm: 211814 1 Capsule(s) Oral QAM every morning 06/02/19 023 Inactive Banophen 50 mg capsule RxNorm: 2875380 Take 1 Capsule(s) Oral Q6H every 6 hours as needed 05/19/19 23 No Stop Date Active Novolog Flexpen U-100 Insulin aspart 100 unit/mL (3 mL) subcutaneous RxNorm: 5138932 Inject 10 Unit(s) Subcutaneous QHS every night at bedtime with nighttime snack 04/08/20 22 022 Inactive Novolog Flexpen U-100 Insulin aspart 100 unit/mL (3 mL) subcutaneous RxNorm: 2915381 Inject 42 Unit(s) Subcutaneous TID in addition to sliding scale 04/08/20 022 Inactive d/c 36u albuterol sulfate HFA 90 mcg/actuation aerosol inhaler RxNorm: 1488738 Take 2 Puff(s) Inhalation Q4H every four hours as needed as needed for SOB, cough, or wheezing 04/07/20 030 Active Banophen 50 mg capsule RxNorm: 4103122 Take 1 Capsule(s) Oral Q6H every 6 hours as needed 04/06/20 023 Inactive diphenhydramine 50 mg tablet RxNorm: 3646260 Take 1 Tablet(s) Oral Q6H every 6 hours as needed 04/06/20 22 022 Inactive diphenhydramine 50 mg tablet RxNorm: 1462675 1 Tablet(s) Oral Q6H every 6 hours as needed 04/06/20 22 022 Inactive Abilify 15 mg tablet RxNorm: 164135 1/2 Tablet(s) Oral QD 03/10/20 22 023 Inactive Shingrix (PF) 50 mcg/0.5 mL intramuscular suspension, kit RxNorm: 5290488 Administer 1/2 Milliliter(s) Intramuscular QD one time shingrix step 2 ( step 1 given 11/04/21) WITH needle - Nursing please administer upon arrival and once administered post a bridge message 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, 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, expiration date, and lot# so we can update [facility] 02/18/20 22 022 Inactive dispense with needle Shingrix (PF) 50 mcg/0.5 mL intramuscular suspension, kit RxNorm: 8989292 Administer 1/2 Milliliter(s) Intramuscular QD one time shingrix step 2 ( step 1 given 11/04/21) WITH needle - Nursing please administer upon arrival and once administered post a bridge message with 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, 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, expiration date, and lot# so we can update [facility] 02/18/20 22 022 Inactive dispense with needle polyethylene glycol 3350 17 gram/dose oral powder RxNorm: 521441 Take 17=1 capful Gram(s) Oral QD mix with 4-8oz of liquid 01/08/20 22 023 Inactive take this in addition to BID prn order Lyrica 100 mg capsule RxNorm: 370548 Take 1 Capsule(s) Oral QAM every morning 01/08/20 22 022 Inactive d/c 50mg dose acetaminophen 500 mg tablet RxNorm: 326412 Take 1 Tablet(s) Oral TID 01/08/20 22 022 Inactive d/c PRN order Lyrica 150 mg capsule RxNorm: 517979 Take 1 Capsule(s) Oral QHS every night at bedtime 01/08/20 22 023 Inactive d/c 100mg dose Abilify 5 mg tablet RxNorm: 257756 Take 1 Tablet(s) Oral QD take 1 tab po QD #30 refill 5 dx: MDD 12/12/19 22 022 Inactive Abilify 5 mg tablet RxNorm: 815130 Take 1 Tablet(s) Oral QD take 1 tab po QD #30 refill 5 dx: MDD 12/12/19 22 022 Inactive Novolog Flexpen U-100 Insulin aspart 100 unit/mL (3 mL) subcutaneous RxNorm: 9435157 Inject 42 Unit(s) Subcutaneous TID in addition to sliding scale 12/10/19 22 022 Inactive d/c 36u chlorthalidone 25 mg tablet RxNorm: 560877 Take 1 Tablet(s) Oral QAM every morning 12/10/19 22 023 Inactive pregabalin 50 mg capsule RxNorm: 769378 Take 1 Capsule(s) Oral QAM every morning 11/12/19 22 022 Inactive tetanus-diphtheria toxoids-Td 2 Lf unit-2 Lf unit/0.5 mL IM suspension RxNorm: 139 Take 0.5 Miscellaneous Intramuscular 11/12/19 22 022 Inactive need tdap - nursing to administer upon arrival pregabalin 50 mg capsule RxNorm: 843579 Take 1 Capsule(s) Oral QAM every morning 10/16/19 22 022 Inactive pregabalin 50 mg capsule RxNorm: 751746 Take 1 Capsule(s) Oral QAM every morning 10/16/19 22 022 Inactive pregabalin 50 mg capsule RxNorm: 152044 1 Capsule(s) Oral QAM every morning 10/15/19 22 022 Inactive Shingrix (PF) 50 mcg/0.5 mL intramuscular suspension, kit RxNorm: 6655776 Administer 1/2 Milliliter(s) Intramuscular one time Nursing please administer upon arrival and once administered post a bridge message with 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 10/09/19 22 Inactive shingrix step 1 cholecalciferol (vitamin D3) 1,250 mcg (50,000 unit) capsule RxNorm: 295453 Take 1 Capsule(s) Oral QW once a [...] aspart 100 unit/mL (3 mL) subcutaneous RxNorm: 0135922 Inject 10 Unit(s) Subcutaneous QHS every night at bedtime with nighttime snack 10/08/19 22 Inactive Shingrix (PF) 50 mcg/0.5 mL intramuscular suspension, kit RxNorm: 4629574 ADMINISTER 2-DOSE SERIES PER CDC GUIDELINES 10/08/19 22 022 Active Shingrix (PF) 50 mcg/0.5 mL intramuscular suspension, kit RxNorm: 1909546 ADMINISTER 2-DOSE SERIES PER CDC GUIDELINES 10/08/19 22 022 Inactive Novolog Flexpen U-100 Insulin aspart 100 unit/mL (3 mL) subcutaneous RxNorm: 6945432 Inject 36 Unit(s) Subcutaneous TID in addition to sliding scale 10/08/19 22 Inactive Novofine Autocover 30 gauge x 1/3 needle RxNorm: Use 1 Miscellaneous UD as directed Use 1 needle as directed to administer insulin 5 times a day Dx:E11.42. 10/03/19 22 Inactive ok to substitute with any covered alternative pen needle benzoyl peroxide 10 % topical cleanser RxNorm: 806642 Apply 1 Application Topical QD apply to face, wash rinse and dry once daily (may change to QOD if drying) 08/19/19 22 022 Inactive (%covered by insurance) #60ml refill 11 dx: acne benzoyl peroxide 10 % topical cleanser RxNorm: 533484 Apply 1 Application Topical QD apply to face, wash rinse and dry once daily (may change to QOD if drying) 08/19/19 22 022 Inactive (%covered by insurance) #60ml refill 11 dx: acne benzoyl peroxide 10 % topical cleanser RxNorm: 390370 Apply 1 Application Topical QD apply to face, wash rinse and dry once daily (may change to QOD if drying) 08/19/19 22 022 Inactive (%covered by insurance) #60ml refill 11 dx: acne Lyrica 50 mg capsule RxNorm: 872232 Take 1 Capsule(s) Oral QAM every morning Take 1 capsule by mouth once daily 08/19/19 22 022 Inactive benzoyl peroxide 10 % topical cleanser RxNorm: 151359 Apply 1 Application Topical QD apply to face, wash rinse and dry once daily (may change to QOD if drying) 08/19/19 22 022 Inactive (%covered by insurance) #60ml refill 11 dx: acne Lyrica 100 mg capsule RxNorm: 863885 Take 1 Capsule(s) Oral QHS every night at bedtime Take 1 capsule by mouth once daily at bedtime 08/19/19 22 022 Inactive Lyrica 100 mg capsule RxNorm: 501214 Take 1 Capsule(s) Oral QHS every night at bedtime Take 1 capsule by mouth once daily at bedtime 08/16/19 22 Inactive Lyrica 50 mg capsule RxNorm: 455863 Take 1 Capsule(s) Oral QAM every morning Take 1 capsule by mouth once daily 08/16/19 22 022 Inactive Levemir FlexTouch U-100 Insulin 100 unit/mL (3 mL) subcutaneous pen RxNorm: 085319 Inject 86 Unit(s) Subcutaneous BID 08/05/19 22 022 Inactive d/c 83units BID Lyrica 100 mg capsule RxNorm: 663789 Take 1 Capsule(s) Oral QHS every night at bedtime Take 1 capsule by mouth once daily at bedtime 07/14/19 22 022 Inactive Lyrica 50 mg capsule RxNorm: 167943 Take 1 Capsule(s) Oral QAM every morning Take 1 capsule by mouth once daily 07/14/19 22 Inactive Levemir FlexTouch U-100 Insulin 100 unit/mL (3 mL) subcutaneous pen RxNorm: 345194 Inject 83 Unit(s) Subcutaneous BID 07/08/19 22 [...] test strip hydralazine 50 mg tablet RxNorm: 285904 Take 1 Tablet(s) Oral QID 05/05/20 Inactive venlafaxine ER 225 mg tablet,extended release 24 hr RxNorm: 110172 Take 1 Tablet(s) Oral QD 05/05/20 Inactive venlafaxine ER 225 mg tablet,extended release 24 hr RxNorm: 071384 Take 1 Tablet(s) Oral QD 05/05/20 022 Inactive isosorbide mononitrate ER 30 mg tablet,extended release 24 hr RxNorm: 087246 Take 1 Tablet(s) Oral QD 05/05/20 024 Inactive hydralazine 50 mg tablet RxNorm: 321888 Take 1 Tablet(s) Oral QID 05/05/20 Inactive aspirin 81 mg tablet,delayed release RxNorm: 262481 Take 1 Tablet(s) Oral QD 03/31/20 022 Inactive Vitamin D2 1,250 mcg (50,000 unit) capsule RxNorm: 4619220 Take 1 Capsule(s) Oral QW once a week x 12 weeks 03/31/20 Inactive Vitamin D2 1,250 mcg (50,000 unit) capsule RxNorm: 6372722 Take 1 Capsule(s) Oral QW once a week 03/31/20 Inactive Zetia 10 mg tablet RxNorm: 495679 Take 1 Tablet(s) Oral QD 03/31/20 024 Inactive Zetia 10 mg tablet RxNorm: 196020 Take 1 Tablet(s) Oral QD 03/31/20 021 Inactive hydralazine 25 mg tablet RxNorm: 580966 Take 1 Tablet(s) Oral QID 03/31/20 021 Inactive hydralazine 25 mg tablet RxNorm: 591689 Take 1 Tablet(s) Oral QID 03/31/20 021 Inactive hydralazine 10 mg tablet RxNorm: 750125 Take 1 Tablet(s) Oral QID 03/03/20 021 Inactive cephalexin 500 mg tablet RxNorm: 231969 Take 1 Tablet(s) Oral QID 02/27/20 021 Inactive cephalexin 500 mg tablet RxNorm: 469126 Take 1 Tablet(s) Oral QID 02/27/20 021 Inactive lisinopril 40 mg tablet RxNorm: 346966 Take 1 Tablet(s) Oral QD 02/11/20 023 Inactive Eliquis 5 mg tablet RxNorm: 3948446 Take 1 Tablet(s) Oral BID 01/05/20 21 022 Inactive Eliquis 5 mg tablet RxNorm: 2114906 Take 2 Tablet(s) Oral QD 01/01/20 021 Inactive Lyrica 50 mg capsule RxNorm: 471465 Take 1 Capsule(s) Oral QAM every morning 12/24/19 021 Inactive Lyrica 100 mg capsule RxNorm: 508980 Take 1 Capsule(s) Oral QHS every night at bedtime 12/24/19 021 Inactive clotrimazole 1 % topical cream RxNorm: 573183 Apply to right foot and toes Topical BID 12/04/19 21 023 Inactive metoprolol succinate ER 200 mg tablet,extended release 24 hr RxNorm: 837429 Take 1 Tablet(s) Oral QD 12/04/19 023 Inactive ciprofloxacin 500 mg tablet RxNorm: 828068 Take 1 Tablet(s) Oral QD 11/30/19 021 Inactive DX ofloxacin otic drops Accu-Chek Guide test strips RxNorm: USE 1 TO CHECK GLUCOSE 4 TIMES DAILY AND NEEDED 11/15/19 21 023 Inactive Blood Glucose Test strips RxNorm: Use 1 Test Strip QID at PRN 11/05/19 21 023 Inactive E11.42 lisinopril 30 mg tablet RxNorm: 589657 Take 1 Tablet(s) Oral QD 10/30/19 21 021 Inactive lisinopril 20 mg tablet RxNorm: 679114 Take 1 Tablet(s) Oral QD 10/23/19 021 Inactive lisinopril 20 mg tablet RxNorm: 045922 Take 1 Tablet(s) Oral QD 10/23/19 21 021 Inactive lisinopril 10 mg tablet RxNorm: 903851 Take 1 Tablet(s) Oral QD 10/02/19 21 021 Inactive icosapent ethyl 1 gram capsule RxNorm: 6520669 Take 2 Capsule(s) (2 gm) Oral BID with meals 09/12/19 21 024 Inactive Okay to dispense one 2gm tab if you have that available. icosapent ethyl 1 gram capsule RxNorm: 4600056 Take 2 Capsule(s) Oral BID 09/12/19 21 021 Inactive Okay to dispense one 2gm tab if you have that available. amlodipine 10 mg tablet RxNorm: 687776 Take 1 Tablet(s) Oral QD 09/04/19 022 Inactive aspirin 81 mg tablet,delayed release RxNorm: 920837 Take 1 Tablet(s) Oral QD 09/04/19 21 021 Inactive Levemir FlexTouch U-100 Insulin 100 unit/mL (3 mL) subcutaneous pen RxNorm: 059958 Inject 150 Unit(s) Subcutaneous BID 09/04/19 21 022 Inactive venlafaxine ER 150 mg tablet,extended release 24 hr RxNorm: 392354 Take 1 Tablet(s) Oral QD 09/04/19 21 021 Inactive clotrimazole-betame thasone 1 %-0.05 % topical cream RxNorm: 798863 Apply to rash on red area on left abdomen/chest Topical BID 08/10/19 21 021 Inactive amlodipine 5 mg tablet RxNorm: 364862 Take 1 Tablet(s) Oral QD 07/31/19 21 021 Inactive cephalexin 500 mg tablet RxNorm: 348307 Take 1 Tablet(s) Oral BID BID - Twice Daily 07/31/19 21 021 Inactive Start 08/01/20 pantoprazole 40 mg tablet,delayed release RxNorm: 693613 Take 1 Tablet(s) Oral QAM every morning 07/08/19 022 Inactive senna 8.6 mg tablet RxNorm: 224553 Take 1 Tablet(s) Oral QD 07/08/19 21 022 Inactive carbamazepine 200 mg tablet RxNorm: 974757 Take 1 Tablet(s) Oral BID 07/08/19 21 022 Inactive clopidogrel 75 mg tablet RxNorm: 937457 Take 1 Tablet(s) Oral QD 07/08/19 21 021 Inactive Blood Glucose Test strips RxNorm: Use 1 Test Strip QID at PRN 07/08/19 Inactive E11.42 Novolog Flexpen U-100 Insulin aspart 100 unit/mL (3 mL) subcutaneous RxNorm: 8513748 Administer per sliding scale Milliliter(s) Subcutaneous TID 151-200: 10 u; 201-250: 20 u; 251-300: 30 u; 301-350: 40 u; 351-400: 50 u. 07/08/19 022 Inactive lisinopril 5 mg tablet RxNorm: 600433 Take 1 Tablet(s) Oral QD 07/08/19 021 Inactive Novolog Flexpen U-100 Insulin aspart 100 unit/mL (3 mL) subcutaneous RxNorm: 1558099 Inject 85 Unit(s) Subcutaneous TID 07/08/19 022 Inactive pravastatin 80 mg tablet RxNorm: 204483 Take 1 Tablet(s) Oral QHS every night at bedtime 07/08/19 023 Inactive clotrimazole 1 % topical cream RxNorm: 051202 Apply to bilateral groin areas Topical BID 07/08/19 21 022 Inactive metoprolol succinate ER 200 mg tablet,extended release 24 hr RxNorm: 327527 Take 1 Tablet(s) Oral QD 07/08/19 21 021 Inactive Vitamin D3 25 mcg (1,000 unit) tablet RxNorm: 726987 Take 1 Tablet(s) Oral QD 07/08/19 21 021 Inactive isosorbide dinitrate 30 mg tablet RxNorm: 073494 Take 1 Tablet(s) Oral QD 07/08/19 21 021 Inactive Levemir FlexTouch U-100 Insulin 100 unit/mL (3 mL) subcutaneous pen RxNorm: 167523 Inject 140 Unit(s) Subcutaneous BID 07/08/19 21 021 Inactive torsemide 20 mg tablet RxNorm: 454515 Take 1 Tablet(s) Oral QD 07/08/19 21 023 Inactive venlafaxine 75 mg tablet RxNorm: 794848 Take 1 Tablet(s) Oral QD 07/08/19 021 Inactive acetaminophen 500 mg tablet RxNorm: 562695 Take 1 Tablet(s) Oral TID as needed for headache 06/18/19 021 Inactive acetaminophen 500 mg tablet RxNorm: 259420 Take 1 Tablet(s) Oral TID as needed for headache 06/18/19 021 Inactive Lyrica 100 mg capsule RxNorm: 362147 Take 1 Capsule(s) Oral QHS every night at bedtime 06/11/19 21 021 Inactive Lyrica 50 mg capsule RxNorm: 701406 Take 1 Capsule(s) Oral QAM every morning 06/10/19 021 Inactive hydrocortisone 2.5 % topical cream RxNorm: 178830 Apply to bilateral groin creases Topical BID 05/15/20 20 021 Inactive clotrimazole 1 % topical cream RxNorm: 262888 Apply to bilateral groin areas Topical BID 05/15/20 20 021 Inactive Lyrica 50 mg capsule RxNorm: 841836 Take 1 Capsule(s) Oral QAM every morning 05/14/20 20 020 Inactive Lyrica 100 mg capsule RxNorm: 075483 Take 1 Capsule(s) Oral QHS every night at bedtime 05/14/20 020 Inactive Lancets,Thin 28 gauge RxNorm: Use [...] Inactive Nystop 100,000 unit/gram topical powder RxNorm: 977566 Apply to abd folds, under breasts and L side of groin Topical BID x 14 days, then BID PRN 04/08/20 20 Inactive dx: yeast dermatitis Lyrica 100 mg capsule RxNorm: 257048 Take 1 Capsule(s) Oral QHS every night at bedtime 03/13/20 20 Inactive Lyrica 50 mg capsule RxNorm: 282762 Take 1 Capsule(s) Oral QAM every morning 03/13/20 20 Inactive ketoconazole 2 % shampoo RxNorm: 174181 Apply Topical two times a week with showers 03/11/20 20 Inactive cholecalciferol (vitamin D3) 50 mcg (2,000 unit) tablet RxNorm: 979025 Take 1 Tablet(s) Oral QD 03/11/20 20 021 Inactive Zetia 10 mg tablet RxNorm: 890643 Take 1 Tablet(s) Oral QD 03/07/20 20 021 Inactive Zetia 10 mg tablet RxNorm: 911598 Take 1 Tablet(s) Oral QD 03/07/20 20 Inactive Lyrica 50 mg capsule RxNorm: 000231 Take 1 Capsule(s) Oral QAM every morning 02/15/20 20 Inactive Lyrica 100 mg capsule RxNorm: 488668 Take 1 Capsule(s) Oral QHS every night at bedtime 02/15/20 20 Inactive Lyrica 100 mg capsule RxNorm: 114968 Take 1 Capsule(s) Oral QHS every night at bedtime 02/15/20 20 Inactive Lyrica 50 mg capsule RxNorm: 387113 Take 1 Capsule(s) Oral QAM every morning 02/15/20 20 020 Inactive metoprolol succinate ER 200 mg tablet,extended release 24 hr RxNorm: 353984 Take 1 Tablet(s) Oral QD 08/12/19 23 Active loperamide 2 mg capsule RxNorm: 449764 Take 1 Capsule(s) Oral QID as needed 06/12/19 22 Active hydralazine 50 mg tablet RxNorm: 009312 Take 1 Tablet(s) Oral QID 08/12/19 23 Active venlafaxine ER 75 mg capsule,extended release 24 hr RxNorm: 051881 Take 3 Capsule(s) Oral QD 06/12/19 22 023 Inactive polyethylene glycol 3350 17 gram/dose oral powder RxNorm: 763433 Take 17=1 capful Gram(s) Oral BID as needed mix with 4-8oz of liquid 06/12/19 22 024 Inactive icosapent ethyl 1 gram capsule RxNorm: 5747598 Take 2 Capsule(s) (2 gm) Oral BID with meals 10/07/19 23 023 Inactive Okay to dispense one 2gm tab if you have that available. Levemir FlexTouch U-100 Insulin 100 unit/mL (3 mL) subcutaneous pen RxNorm: 437846 Inject 80 Unit(s) Subcutaneous BID 07/14/19 23 023 Inactive Novolog Flexpen U-100 Insulin aspart 100 unit/mL (3 mL) subcutaneous RxNorm: 6852701 Insert 30 Unit(s) Subcutaneous TID with meals [...] Date Patient Education: Patient Medication Summary Completed 02/08/2024 Appointment: Brian Munson WPtel: [address] [place], [place] [id number] F/U 01/11/2024 Appointment: Sandra Clark WPtel: [address] [place], [place] [phone] Telehealth Psych Follow Up 12/09 Appointment: Tapan Shirley WPtel: [address] [place], [place] [phone] [facility] 10/26/2022 Referral: [facility] WPtel: [address], [address] [id number] Referral Records Received 09/21/2022 Appointment: Tapan Shirley WPtel: [address] [facility] [address] [id number] [place] F/U 08/11/2022 Appointment: Tapan Shirley WPtel: [address] [facility] [address] [id number] [place] F/U 07/14/2022 Appointment: Tapan Shirley WPtel: [address] [facility] [address] [id number] [place] F/U 02/10/2022 Referral: [facility] WPtel: [address] [facility] [address] [id number] [place] Referral Completed 05/28/2021 Referral: General Cardiology [...] attention.??Sister Jyotsna involved in his care cell# [phone]??Guardian: Giulia (tapan met in person 09/01/21), now has Lexii (same group as giulia)AWV 9..??Lab Schedule: /September*September (CBC with diff, CMP, A1c)??March: [...] ).??Bobbi note from 11.08.2023 at [facility] (follow up 6 months)Colon & Rectal Surgery visit scheduled for 03/08/24 with Matilde Pérez PA-C.?? 02/08/2024
--- OUTSIDE RECORDS SUMMARY | 2024-02-19 13:21 | XMS_ITS | CCD ---
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 Special Loan Officer Name Role Phone Cherry [employer] ADVISOR-CHarrison Primary Care Provider Leona vailable Arpit [employer] ADVISOR-C, [facility] Management U navailable Summary Purpose DataExchange Insurance Providers Payer name Policy type / Coverage type Covered democrat ID Effective Begin Date Effective End Date [place] B [id number] Unknown Unknown [place] Medicare Part B [id number] Unknown Unknown Family history Sister Brittany Suggs [...] Snf 09/03/[address]: 7290030 Non-Smoker / No History of Smoking 09/02/[address]: [id number] No Alcohol Consum ption 09/02/2020 Allergies, Adverse Reactions, Alerts Substance Reaction Codes Entered Date Inactivated Date Status * NO KNOWN FOOD ALLERGIES Unknown 07/13/2023 No Inactive Date Active LISINOPRIL RxNorm: 07197 02/12/2020 No Inactive Da te Active Metformin [...] 09/07/2023 Resolved Coronary artery disease invo lving nez perce [...] immunization ICD-10: Z23 ICD-9: V03.89 02/10/2022 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 [...] Fill Instructions pregabalin 100 mg capsule RxNorm: 623166 Take 1 Capsule(s) Oral QAM every morning 02/07/20 24 024 Active isosorbide mononitrate ER 60 mg tablet,extended release 24 hr RxNorm: 679515 Take 1 Tablet(s) Oral QD 02/01/20 24 025 Active aripiprazole 15 mg tablet RxNorm: 202907 Take 1/2 Tablet(s) Oral QD 02/01/20 24 025 Active torsemide 20 mg tablet RxNorm: 174342 1 TAB ORALLY DAILY (DX: EDEMA) 01/27/20 24 No Stop Date Active potassium chloride ER 20 mEq tablet,extended release(part/cryst) RxNorm: 0737366 2 TABS (40MEQ) ORALLY TWICE DAILY (DX: HYPOKALEMIA) 01/27/20 24 No Stop Date Active cephalexin 500 mg capsule RxNorm: 097322 Take 1 Capsule(s) Oral QID 12/17/19 24 024 Inactive cephalexin 500 mg capsule RxNorm: 389987 Take 1 Capsule(s) Oral QID 12/17/19 24 024 Inactive acetaminophen 500 mg tablet RxNorm: 760193 (MAX APAP:4GM/24HR) Take 1 Tablet(s) Oral TID as needed for pain 12/10/19 24 024 Active torsemide 20 mg tablet RxNorm: 540522 Take 1 Tablet(s) Oral QD 10/26/19 24 024 Inactive potassium chloride ER 20 mEq tablet,extended release RxNorm: 754783 Take 2 Tablet(s) Oral BID 10/26/19 24 025 Active torsemide 20 mg tablet RxNorm: 566979 Take 1 Tablet(s) Oral QD 10/26/19 24 024 Inactive potassium chloride ER 20 mEq tablet,extended release RxNorm: 172854 Take 2 Tablet(s) Oral BID 10/26/19 24 024 Inactive Artificial Tears (PF) 0.1 %-0.3 % drops in a dropperette RxNorm: 489274 Apply 1-2 Drop(s) Both eyes BID as needed 09/28/19 24 025 Active erythromycin 5 mg/gram (0.5 %) eye ointment RxNorm: 417561 Apply 1 Application Both eyes QHS every night at bedtime Instill ~1 cm ribbon into affected eye 09/28/19 24 Inactive Artificial Tears (PF) 0.1 %-0.3 % drops in a dropperette RxNorm: 890605 Apply 1-2 Drop(s) Both eyes BID as needed 09/28/19 24 024 Inactive erythromycin 5 mg/gram (0.5 %) eye ointment RxNorm: 289069 Apply 1 Application Both eyes QHS every night at bedtime Instill ~1 cm ribbon into affected eye 09/28/19 24 024 Inactive acetaminophen 500 mg tablet RxNorm: 032581 (MAX APAP:4GM/24HR) Take 1 Tablet(s) Oral TID as needed for pain 09/24/19 24 024 Inactive carvedilol 25 mg tablet RxNorm: 091181 Take 1 Tablet(s) Oral QD 09/08/19 24 No Stop Date Active pregabalin 100 mg capsule RxNorm: 880515 Take 1 Capsule(s) Oral QAM every morning 09/07/19 24 024 Inactive rosuvastatin 40 mg tablet RxNorm: 080615 Take 1 Tablet(s) Oral QPM every evening 07/13/19 24 No Stop Date Active ezetimibe 10 mg tablet RxNorm: 921964 Take 1 Tablet(s) Oral QD 07/13/19 24 No Stop Date Active bisacodyl 10 mg rectal suppository RxNorm: 644751 Insert 1 Suppository Rectal QD as needed 07/13/19 24 No Stop Date Active polyethylene glycol 3350 17 gram/dose oral powder RxNorm: 408249 Take 17 Gram(s) Oral BID as needed mix in 4-8ox water 07/13/19 24 No Stop Date Active ketoconazole 2 % shampoo RxNorm: 618234 Apply 1 Application Topical UD as directed 07/13/19 24 No Stop Date Active Ozempic 1 mg/dose (4 mg/3 mL) subcutaneous pen injector RxNorm: 8221645 Inject 1 Milligram(s) Subcutaneous QW once a week 07/13/19 24 No Stop Date Active Guaifenesin AC 10 mg-100 mg/5 mL oral liquid RxNorm: 012732 Take 10 Milliliter(s) Oral Q4H every four hours as needed 07/13/19 24 No Stop Date Active ammonium lactate 12 % topical cream RxNorm: 688666 Apply 1 Application Topical BID 07/13/19 24 No Stop Date Active hydrocortisone 2.5 % topical cream RxNorm: 837796 Apply 1 Application Topical BID as needed 07/13/19 24 No Stop Date Active rosuvastatin 20 mg sprinkle capsule RxNorm: 7384214 Take 1 Capsule(s) Oral QD 07/13/19 24 No Stop Date Active Vascepa 1 gram capsule RxNorm: 3493399 Take 2 Capsule(s) Oral BID 07/13/19 24 No Stop Date Active venlafaxine ER 75 mg capsule,extended release 24 hr RxNorm: 120989 Take 3 Capsule(s) Oral QD 07/13/19 24 No Stop Date Active aripiprazole 15 mg tablet RxNorm: 181834 Take 1/2 Tablet(s) Oral QD 07/13/19 24 024 Inactive isosorbide mononitrate ER 60 mg tablet,extended release 24 hr RxNorm: 281145 Take 1 Tablet(s) Oral QD 07/13/19 24 024 Inactive Basaglar KwikPen U-100 Insulin 100 unit/mL (3 mL) subcutaneous RxNorm: 4529098 Inject 30U SubQ twice daily 07/07/19 24 024 Inactive Please dispense one month supply. Basaglar KwikPen U-100 Insulin 100 unit/mL (3 mL) subcutaneous RxNorm: 8700555 Inject 30U SubQ twice daily 07/07/19 24 024 Inactive Please dispense one month supply. pregabalin 150 mg capsule RxNorm: 850763 Take 1 Capsule(s) Oral QHS every night at bedtime 07/05/19 24 024 Inactive pregabalin 150 mg capsule RxNorm: 524022 Take 1 Capsule(s) Oral QHS every night at bedtime 07/05/19 24 024 Inactive polyethylene glycol 3350 17 gram/dose oral powder RxNorm: 861480 Take 1 Packet Oral QD as needed (1 packet = 17g) mix with 4-8oz of liquid 06/15/19 24 024 Inactive bisacodyl 10 mg rectal suppository RxNorm: 423115 Insert one suppository per rectum once daily as needed for constipation 06/15/19 024 Inactive bisacodyl 10 mg rectal suppository RxNorm: 234973 Insert one suppository per rectum once daily as needed for constipation 06/15/19 024 Inactive pregabalin 100 mg capsule RxNorm: 787965 Take 1 Capsule(s) Oral QAM every morning 04/27/20 024 Inactive Levemir FlexPen 100 unit/mL (3 mL) solution subcutaneous insulin pen RxNorm: 526739 Inject 30 Unit(s) Subcutaneous BID 04/27/20 024 Inactive rosuvastatin 40 mg tablet RxNorm: 624455 Take 1 Tablet(s) Oral QPM every evening 04/16/20 024 Inactive D/C rosuvastatin 20mg venlafaxine ER 75 mg capsule,extended release 24 hr RxNorm: 286345 Take 3 Capsule(s) Oral QD 04/14/20 23 023 Inactive pregabalin 100 mg capsule RxNorm: 746549 Take 1 Capsule(s) Oral QAM every morning [...] meter clotrimazole 1 % topical cream RxNorm: 929336 Take apply topically to abdominal folds twice daily for 14 days 03/12/20 23 024 Inactive Ozempic 1 mg/dose (4 mg/3 mL) subcutaneous pen injector RxNorm: 2163130 Inject 1 Milligram(s) Subcutaneous QW once a week 03/11/20 23 023 Inactive rosuvastatin 20 mg tablet RxNorm: 803585 Take 1 Tablet(s) Oral QD 02/26/20 23 023 Inactive d/c pravastatin 80mg Ozempic 1 mg/dose (4 mg/3 mL) subcutaneous pen injector RxNorm: 2008459 Inject 1 Milligram(s) Subcutaneous QW once a week 02/20/20 23 023 Inactive pregabalin 150 mg capsule RxNorm: 651980 Take 1 Capsule(s) Oral HS at bed time 02/19/20 23 023 Inactive pregabalin 100 mg capsule RxNorm: 648374 Take 1 Capsule(s) Oral QAM every morning 02/18/20 23 023 Inactive venlafaxine ER 75 mg capsule,extended release 24 hr RxNorm: 235432 Take 3 Capsule(s) Oral QD 02/04/20 023 Inactive FreeStyle Chema 2 Sensor kit RxNorm: use as directed 02/04/20 23 023 Inactive FreeStyle Chema 2 Sensor kit RxNorm: use as directed 02/04/20 23 024 Inactive fluconazole 150 mg tablet RxNorm: 365907 Take 1 Tablet(s) Oral on day 3 and on day 6 02/03/20 23 024 Inactive chlorthalidone 25 mg tablet RxNorm: 532490 Take 1 Tablet(s) Oral QAM every morning 02/03/20 23 No Stop Date Active venlafaxine ER 150 mg capsule,extended release 24 hr RxNorm: 944341 Take 1 Capsule(s) Oral QD 02/03/20 23 023 Inactive acetaminophen 500 mg tablet RxNorm: 506820 1 TABLET ORALLY 3 TIMES DAILY (MAX APAP:4GM/24HR) 12/15/19 23 023 Inactive clotrimazole 1 % topical cream RxNorm: 155193 apply 1g topically to top of feet and in between toes BID 12/09/19 23 023 Inactive potassium chloride ER 20 mEq tablet,extended release RxNorm: 510414 Take 1 Tablet(s) Oral BID 12/09/19 024 Inactive d/c 20mEq once daily (sent from hospital) nystatin 100,000 unit/gram topical powder RxNorm: 082933 APPLY TO AFFECTED AREAS TOPICALLY 2 TIMES DAILY 11/21/19 23 024 Inactive Nystop 100,000 unit/gram topical powder RxNorm: 564099 Apply to abd folds, under breasts and L side of groin Topical BID x 14 days, then BID PRN 11/20/19 023 Inactive dx: yeast dermatitis [place] Ultra Strength 4 %-30 %-10 % topical cream RxNorm: 856217 Apply 1 Gram(s) Topical QID PRN to feet and legs for neuropathic pain 11/11/19 024 Inactive clotrimazole 1 % topical cream RxNorm: 227304 Apply 1/2 Gram(s) Topical BID Apply to affected areas of groin, periarea, and abdominal topically 2 times daily 11/10/19 23 023 Inactive hydrocortisone 2.5 % topical cream RxNorm: 551612 Apply 1/2 Gram(s) Topical BID as needed 11/10/19 024 Inactive Humulin R U-500 (Concentrated) Insulin 500 unit/mL subcutaneous soln RxNorm: 950051 Inject 100 Unit(s) Subcutaneous TID 10/07/19 23 024 Inactive Levemir FlexPen 100 unit/mL (3 mL) solution subcutaneous insulin pen RxNorm: 002376 Inject 30 Unit(s) Subcutaneous BID 10/07/19 23 023 Inactive Ozempic 0.25 mg or 0.5 mg (2 mg/3 mL) subcutaneous pen injector RxNorm: 6704999 Inject 1/2 Milligram(s) Subcutaneous QW once a week 10/07/19 024 Inactive aripiprazole 15 mg tablet RxNorm: 114272 /2 TAB (7.5MG) ORALLY DAILY (DX:MAJOR DEPRESSIVE DISORDER) 09/23/19 023 Inactive Lancets,Thin 28 gauge RxNorm: Use 1 as directed QID 09/15/19 23 024 Inactive Accu-Chek Guide test strips RxNorm: Use 1 Test Strip QID 09/15/19 23 023 Inactive ok to substitute with any covered alternative test strip torsemide 20 mg tablet RxNorm: 631741 Take 1 Tablet(s) Oral BID 09/09/19 23 024 Inactive d/c once daily dosing carvedilol 25 mg tablet RxNorm: 507400 Take 1 Tablet(s) Oral QD 08/25/19 024 Inactive pregabalin 150 mg capsule RxNorm: 925885 1 Capsule(s) Oral HS at bed time 08/18/19 023 Inactive pregabalin 100 mg capsule RxNorm: 374155 1 Capsule(s) Oral QAM every morning 08/18/19 23 023 Inactive carvedilol 25 mg tablet RxNorm: 849636 1 Tablet(s) Oral QD 07/28/19 23 023 Inactive lisinopril 20 mg tablet RxNorm: 437895 Give 1 Tablet(s) Oral QD 07/28/19 23 023 Inactive Lyrica 150 mg capsule RxNorm: 447481 Take 1 Capsule(s) Oral QHS every night at bedtime 07/19/19 23 023 Inactive d/c 100mg dose Diflucan 150 mg tablet RxNorm: 304662 Take 1 Tablet(s) Oral QD repeat on day 3 and 6 07/19/19 23 023 Inactive pregabalin 100 mg capsule RxNorm: 030932 Take 1 Capsule(s) Oral QAM every morning 07/19/19 23 023 Inactive gatifloxacin 0.5 % eye drops RxNorm: 704028 Instill 1 Drop(s) as directed TID Instill 1 drop in to affected eye(s) starting 1 day prior to surgery and continue until gone (do not exceed 4 weeks). 07/13/19 23 023 Inactive carvedilol 25 mg tablet RxNorm: 186301 2 Tablet(s) Oral BID 07/13/19 23 023 Inactive Humulin R Regular U-100 Insulin 100 unit/mL injection solution RxNorm: 349891 85 Unit(s) Injection TID 07/13/19 23 023 Inactive ketorolac 0.5 % eye drops RxNorm: 189643 Instill 1 Drop(s) as directed QID Instill 1 drop into affected eye(s) 4 times daily starting 1 day prior to surgery and continue until gone (do not exceed 4 weeks). 07/13/19 023 Inactive Diflucan 150 mg tablet RxNorm: 698658 Take 1 Tablet(s) Oral QD repeat on day 3 and 6 06/30/19 23 023 Inactive Accu-Chek Guide test strips RxNorm: Use 1 Test Strip QID Use 1 test strip to monitor blood glucose 4 times daily and as needed. Dx:E11.42. 06/23/19 23 023 Inactive ok to substitute with any covered alternative test strip dextromethorphan-gu aifenesin 10 mg-100 mg/5 mL oral liquid RxNorm: 791277 Take 10 Milliliter(s) Oral every 4 hours as needed for cough 06/19/19 23 023 Inactive dextromethorphan-gu aifenesin 10 mg-100 mg/5 mL oral liquid RxNorm: 365388 Take 10 Milliliter(s) Oral every 4 hours as needed for cough 06/19/19 023 Inactive Lyrica 150 mg capsule RxNorm: 837300 Take 1 Capsule(s) Oral QHS every night at bedtime 06/18/19 23 023 Inactive d/c 100mg dose aripiprazole 15 mg tablet RxNorm: 709621 1/2 TAB (7.5MG) ORALLY DAILY (DX:MAJOR DEPRESSIVE DISORDER) 06/05/19 23 023 Inactive pregabalin 100 mg capsule RxNorm: 759512 1 Capsule(s) Oral QAM every morning 06/02/19 023 Inactive Banophen 50 mg capsule RxNorm: 9992777 Take 1 Capsule(s) Oral Q6H every 6 hours as needed 05/19/19 No Stop Date Active Novolog Flexpen U-100 Insulin aspart 100 unit/mL (3 mL) subcutaneous RxNorm: 5267031 Inject 10 Unit(s) Subcutaneous QHS every night at bedtime with nighttime snack 04/08/20 022 Inactive Novolog Flexpen U-100 Insulin aspart 100 unit/mL (3 mL) subcutaneous RxNorm: 3932996 Inject 42 Unit(s) Subcutaneous TID in addition to sliding scale 04/08/20 Inactive d/c 36u albuterol sulfate HFA 90 mcg/actuation aerosol inhaler RxNorm: 4826328 Take 2 Puff(s) Inhalation Q4H every four hours as needed as needed for SOB, cough, or wheezing 04/07/20 030 Active Banophen 50 mg capsule RxNorm: 7639090 Take 1 Capsule(s) Oral Q6H every 6 hours as needed 04/06/20 023 Inactive diphenhydramine 50 mg tablet RxNorm: 0401326 Take 1 Tablet(s) Oral Q6H every 6 hours as needed 04/06/20 022 Inactive diphenhydramine 50 mg tablet RxNorm: 4260966 1 Tablet(s) Oral Q6H every 6 hours as needed 04/06/20 022 Inactive Abilify 15 mg tablet RxNorm: 795404 1/2 Tablet(s) Oral QD 03/10/20 22 023 Inactive Shingrix (PF) 50 mcg/0.5 mL intramuscular suspension, kit RxNorm: 6607039 Administer 1/2 Milliliter(s) Intramuscular QD one time shingrix step 2 ( step 1 given 11/04/21) WITH needle - Nursing please administer upon arrival and once administered post a 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, 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, 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, and lot# so we can update [facility] 02/18/20 22 022 Inactive dispense with needle Shingrix (PF) 50 mcg/0.5 mL intramuscular suspension, kit RxNorm: 5006203 Administer 1/2 Milliliter(s) Intramuscular QD one time shingrix step 2 ( step 1 given 11/04/21) WITH needle - Nursing please administer upon arrival and once administered post a bridge message 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, 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, 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 date, and lot# so we can update [facility] 02/18/20 22 022 Inactive dispense with needle polyethylene glycol 3350 17 gram/dose oral powder RxNorm: 811953 Take 17=1 capful Gram(s) Oral QD mix with 4-8oz of liquid 01/08/20 22 023 Inactive take this in addition to BID prn order Lyrica 100 mg capsule RxNorm: 889807 Take 1 Capsule(s) Oral QAM every morning 01/08/20 22 022 Inactive d/c 50mg dose acetaminophen 500 mg tablet RxNorm: 012320 Take 1 Tablet(s) Oral TID 01/08/20 22 022 Inactive d/c PRN order Lyrica 150 mg capsule RxNorm: 212675 Take 1 Capsule(s) Oral QHS every night at bedtime 01/08/20 22 023 Inactive d/c 100mg dose Abilify 5 mg tablet RxNorm: 012985 Take 1 Tablet(s) Oral QD take 1 tab po QD #30 refill 5 dx: MDD 12/12/19 22 022 Inactive Abilify 5 mg tablet RxNorm: 810415 Take 1 Tablet(s) Oral QD take 1 tab po QD #30 refill 5 dx: MDD 12/12/19 22 022 Inactive Novolog Flexpen U-100 Insulin aspart 100 unit/mL (3 mL) subcutaneous RxNorm: 7809448 Inject 42 Unit(s) Subcutaneous TID in addition to sliding scale 12/10/19 22 022 Inactive d/c 36u chlorthalidone 25 mg tablet RxNorm: 960338 Take 1 Tablet(s) Oral QAM every morning 12/10/19 22 023 Inactive pregabalin 50 mg capsule RxNorm: 121849 Take 1 Capsule(s) Oral QAM every morning 11/12/19 22 022 Inactive tetanus-diphtheria toxoids-Td 2 Lf unit-2 Lf unit/0.5 mL IM suspension RxNorm: 139 Take 0.5 Miscellaneous Intramuscular 11/12/19 22 Inactive need tdap - nursing to administer upon arrival pregabalin 50 mg capsule RxNorm: 847385 Take 1 Capsule(s) Oral QAM every morning 10/16/19 22 Inactive pregabalin 50 mg capsule RxNorm: 648345 Take 1 Capsule(s) Oral QAM every morning 10/16/19 22 022 Inactive pregabalin 50 mg capsule RxNorm: 803734 1 Capsule(s) Oral QAM every morning 10/15/19 22 Inactive Shingrix (PF) 50 mcg/0.5 mL intramuscular suspension, kit RxNorm: 6537572 Administer 1/2 Milliliter(s) Intramuscular one time Nursing please administer upon arrival and once administered post a bridge message 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 10/09/19 22 022 Inactive shingrix step 1 cholecalciferol (vitamin D3) 1,250 mcg (50,000 unit) capsule RxNorm: 147159 Take 1 Capsule(s) Oral QW once a [...] aspart 100 unit/mL (3 mL) subcutaneous RxNorm: 5533178 Inject 10 Unit(s) Subcutaneous QHS every night at bedtime with nighttime snack 10/08/19 22 Inactive Shingrix (PF) 50 mcg/0.5 mL intramuscular suspension, kit RxNorm: 3672364 ADMINISTER 2-DOSE SERIES PER CDC GUIDELINES 10/08/19 22 Active Shingrix (PF) 50 mcg/0.5 mL intramuscular suspension, kit RxNorm: 2867713 ADMINISTER 2-DOSE SERIES PER CDC GUIDELINES 10/08/19 22 Inactive Novolog Flexpen U-100 Insulin aspart 100 unit/mL (3 mL) subcutaneous RxNorm: 9348521 Inject 36 Unit(s) Subcutaneous TID in addition to sliding scale 10/08/19 22 Inactive Novofine Autocover 30 gauge x 1/3 needle RxNorm: Use 1 Miscellaneous UD as directed Use 1 needle as directed to administer insulin 5 times a day Dx:E11.42. 10/03/19 22 Inactive ok to substitute with any covered alternative pen needle benzoyl peroxide 10 % topical cleanser RxNorm: 629782 Apply 1 Application Topical QD apply to face, wash rinse and dry once daily (may change to QOD if drying) 08/19/19 22 022 Inactive (%covered by insurance) #60ml refill 11 dx: acne benzoyl peroxide 10 % topical cleanser RxNorm: 874878 Apply 1 Application Topical QD apply to face, wash rinse and dry once daily (may change to QOD if drying) 08/19/19 22 022 Inactive (%covered by insurance) #60ml refill 11 dx: acne benzoyl peroxide 10 % topical cleanser RxNorm: 478728 Apply 1 Application Topical QD apply to face, wash rinse and dry once daily (may change to QOD if drying) 08/19/19 22 022 Inactive (%covered by insurance) #60ml refill 11 dx: acne Lyrica 50 mg capsule RxNorm: 688736 Take 1 Capsule(s) Oral QAM every morning Take 1 capsule by mouth once daily 08/19/19 22 Inactive benzoyl peroxide 10 % topical cleanser RxNorm: 694000 Apply 1 Application Topical QD apply to face, wash rinse and dry once daily (may change to QOD if drying) 08/19/19 22 Inactive (%covered by insurance) #60ml refill 11 dx: acne Lyrica 100 mg capsule RxNorm: 299298 Take 1 Capsule(s) Oral QHS every night at bedtime Take 1 capsule by mouth once daily at bedtime 08/19/19 22 022 Inactive Lyrica 100 mg capsule RxNorm: 010643 Take 1 Capsule(s) Oral QHS every night at bedtime Take 1 capsule by mouth once daily at bedtime 08/16/19 22 Inactive Lyrica 50 mg capsule RxNorm: 122654 Take 1 Capsule(s) Oral QAM every morning Take 1 capsule by mouth once daily 08/16/19 22 Inactive Levemir FlexTouch U-100 Insulin 100 unit/mL (3 mL) subcutaneous pen RxNorm: 912399 Inject 86 Unit(s) Subcutaneous BID 08/05/19 22 022 Inactive d/c 83units BID Lyrica 100 mg capsule RxNorm: 150730 Take 1 Capsule(s) Oral QHS every night at bedtime Take 1 capsule by mouth once daily at bedtime 07/14/19 22 022 Inactive Lyrica 50 mg capsule RxNorm: 383131 Take 1 Capsule(s) Oral QAM every morning Take 1 capsule by mouth once daily 07/14/19 22 022 Inactive Levemir FlexTouch U-100 Insulin 100 unit/mL (3 mL) subcutaneous pen RxNorm: 163805 Inject 83 Unit(s) Subcutaneous BID 07/08/19 22 [...] test strip hydralazine 50 mg tablet RxNorm: 429549 Take 1 Tablet(s) Oral QID 05/05/20 21 022 Inactive venlafaxine ER 225 mg tablet,extended release 24 hr RxNorm: 169448 Take 1 Tablet(s) Oral QD 05/05/20 21 021 Inactive venlafaxine ER 225 mg tablet,extended release 24 hr RxNorm: 988054 Take 1 Tablet(s) Oral QD 05/05/20 21 022 Inactive isosorbide mononitrate ER 30 mg tablet,extended release 24 hr RxNorm: 851690 Take 1 Tablet(s) Oral QD 05/05/20 21 024 Inactive hydralazine 50 mg tablet RxNorm: 330854 Take 1 Tablet(s) Oral QID 05/05/20 021 Inactive aspirin 81 mg tablet,delayed release RxNorm: 312852 Take 1 Tablet(s) Oral QD 03/31/20 022 Inactive Vitamin D2 1,250 mcg (50,000 unit) capsule RxNorm: 4851576 Take 1 Capsule(s) Oral QW once a week x 12 weeks 03/31/20 022 Inactive Vitamin D2 1,250 mcg (50,000 unit) capsule RxNorm: 4477898 Take 1 Capsule(s) Oral QW once a week 03/31/20 021 Inactive Zetia 10 mg tablet RxNorm: 898652 Take 1 Tablet(s) Oral QD 03/31/20 024 Inactive Zetia 10 mg tablet RxNorm: 351391 Take 1 Tablet(s) Oral QD 03/31/20 Inactive hydralazine 25 mg tablet RxNorm: 005159 Take 1 Tablet(s) Oral QID 03/31/20 021 Inactive hydralazine 25 mg tablet RxNorm: 222937 Take 1 Tablet(s) Oral QID 03/31/20 021 Inactive hydralazine 10 mg tablet RxNorm: 509171 Take 1 Tablet(s) Oral QID 03/03/20 021 Inactive cephalexin 500 mg tablet RxNorm: 577831 Take 1 Tablet(s) Oral QID 02/27/20 021 Inactive cephalexin 500 mg tablet RxNorm: 517039 Take 1 Tablet(s) Oral QID 02/27/20 021 Inactive lisinopril 40 mg tablet RxNorm: 155606 Take 1 Tablet(s) Oral QD 02/11/20 21 023 Inactive Eliquis 5 mg tablet RxNorm: 8753504 Take 1 Tablet(s) Oral BID 01/05/20 21 022 Inactive Eliquis 5 mg tablet RxNorm: 4374829 Take 2 Tablet(s) Oral QD 01/01/20 21 021 Inactive Lyrica 50 mg capsule RxNorm: 264620 Take 1 Capsule(s) Oral QAM every morning 12/24/19 21 021 Inactive Lyrica 100 mg capsule RxNorm: 197664 Take 1 Capsule(s) Oral QHS every night at bedtime 12/24/19 21 021 Inactive clotrimazole 1 % topical cream RxNorm: 884680 Apply to right foot and toes Topical BID 12/04/19 21 023 Inactive metoprolol succinate ER 200 mg tablet,extended release 24 hr RxNorm: 529318 Take 1 Tablet(s) Oral QD 12/04/19 21 023 Inactive ciprofloxacin 500 mg tablet RxNorm: 451136 Take 1 Tablet(s) Oral QD 11/30/19 21 021 Inactive DX ofloxacin otic drops Accu-Chek Guide test strips RxNorm: USE 1 TO CHECK GLUCOSE 4 TIMES DAILY AND NEEDED 11/15/19 21 023 Inactive Blood Glucose Test strips RxNorm: Use 1 Test Strip QID at PRN 11/05/19 21 023 Inactive E11.42 lisinopril 30 mg tablet RxNorm: 833274 Take 1 Tablet(s) Oral QD 10/30/19 21 021 Inactive lisinopril 20 mg tablet RxNorm: 579702 Take 1 Tablet(s) Oral QD 10/23/19 21 021 Inactive lisinopril 20 mg tablet RxNorm: 596608 Take 1 Tablet(s) Oral QD 10/23/19 21 021 Inactive lisinopril 10 mg tablet RxNorm: 813311 Take 1 Tablet(s) Oral QD 10/02/19 21 021 Inactive icosapent ethyl 1 gram capsule RxNorm: 8578409 Take 2 Capsule(s) (2 gm) Oral BID with meals 09/12/19 21 024 Inactive Okay to dispense one 2gm tab if you have that available. icosapent ethyl 1 gram capsule RxNorm: 3543320 Take 2 Capsule(s) Oral BID 09/12/19 21 021 Inactive Okay to dispense one 2gm tab if you have that available. amlodipine 10 mg tablet RxNorm: 210970 Take 1 Tablet(s) Oral QD 09/04/19 21 022 Inactive aspirin 81 mg tablet,delayed release RxNorm: 436636 Take 1 Tablet(s) Oral QD 09/04/19 21 Inactive Levemir FlexTouch U-100 Insulin 100 unit/mL (3 mL) subcutaneous pen RxNorm: 294983 Inject 150 Unit(s) Subcutaneous BID 09/04/19 21 022 Inactive venlafaxine ER 150 mg tablet,extended release 24 hr RxNorm: 130115 Take 1 Tablet(s) Oral QD 09/04/19 Inactive clotrimazole-betame thasone 1 %-0.05 % topical cream RxNorm: 612103 Apply to rash on red area on left abdomen/chest Topical BID 08/10/19 21 Inactive amlodipine 5 mg tablet RxNorm: 768183 Take 1 Tablet(s) Oral QD 07/31/19 Inactive cephalexin 500 mg tablet RxNorm: 695375 Take 1 Tablet(s) Oral BID BID - Twice Daily 07/31/19 021 Inactive Start 08/01/20 pantoprazole 40 mg tablet,delayed release RxNorm: 999167 Take 1 Tablet(s) Oral QAM every morning 07/08/19 022 Inactive senna 8.6 mg tablet RxNorm: 078098 Take 1 Tablet(s) Oral QD 07/08/19 022 Inactive carbamazepine 200 mg tablet RxNorm: 241587 Take 1 Tablet(s) Oral BID 07/08/19 022 Inactive clopidogrel 75 mg tablet RxNorm: 172263 Take 1 Tablet(s) Oral QD 07/08/19 21 021 Inactive Blood Glucose Test strips RxNorm: Use 1 Test Strip QID at PRN 07/08/19 21 Inactive E11.42 Novolog Flexpen U-100 Insulin aspart 100 unit/mL (3 mL) subcutaneous RxNorm: 1621143 Administer per sliding scale Milliliter(s) Subcutaneous TID 151-200: 10 u; 201-250: 20 u; 251-300: 30 u; 301-350: 40 u; 351-400: 50 u. 07/08/19 21 022 Inactive lisinopril 5 mg tablet RxNorm: 571048 Take 1 Tablet(s) Oral QD 07/08/19 021 Inactive Novolog Flexpen U-100 Insulin aspart 100 unit/mL (3 mL) subcutaneous RxNorm: 2083004 Inject 85 Unit(s) Subcutaneous TID 07/08/19 022 Inactive pravastatin 80 mg tablet RxNorm: 138480 Take 1 Tablet(s) Oral QHS every night at bedtime 07/08/19 023 Inactive clotrimazole 1 % topical cream RxNorm: 305720 Apply to bilateral groin areas Topical BID 07/08/19 022 Inactive metoprolol succinate ER 200 mg tablet,extended release 24 hr RxNorm: 212588 Take 1 Tablet(s) Oral QD 07/08/19 021 Inactive Vitamin D3 25 mcg (1,000 unit) tablet RxNorm: 525859 Take 1 Tablet(s) Oral QD 07/08/19 021 Inactive isosorbide dinitrate 30 mg tablet RxNorm: 083786 Take 1 Tablet(s) Oral QD 07/08/19 021 Inactive Levemir FlexTouch U-100 Insulin 100 unit/mL (3 mL) subcutaneous pen RxNorm: 994861 Inject 140 Unit(s) Subcutaneous BID 07/08/19 021 Inactive torsemide 20 mg tablet RxNorm: 182931 Take 1 Tablet(s) Oral QD 07/08/19 023 Inactive venlafaxine 75 mg tablet RxNorm: 889508 Take 1 Tablet(s) Oral QD 07/08/19 021 Inactive acetaminophen 500 mg tablet RxNorm: 325338 Take 1 Tablet(s) Oral TID as needed for headache 06/18/19 021 Inactive acetaminophen 500 mg tablet RxNorm: 657466 Take 1 Tablet(s) Oral TID as needed for headache 06/18/19 021 Inactive Lyrica 100 mg capsule RxNorm: 563161 Take 1 Capsule(s) Oral QHS every night at bedtime 06/11/19 21 021 Inactive Lyrica 50 mg capsule RxNorm: 168651 Take 1 Capsule(s) Oral QAM every morning 06/10/19 21 021 Inactive hydrocortisone 2.5 % topical cream RxNorm: 525457 Apply to bilateral groin creases Topical BID 05/15/20 20 021 Inactive clotrimazole 1 % topical cream RxNorm: 421600 Apply to bilateral groin areas Topical BID 05/15/20 20 021 Inactive Lyrica 50 mg capsule RxNorm: 976298 Take 1 Capsule(s) Oral QAM every morning 05/14/20 20 020 Inactive Lyrica 100 mg capsule RxNorm: 809209 Take 1 Capsule(s) Oral QHS every night [...] Inactive Nystop 100,000 unit/gram topical powder RxNorm: 193719 Apply to abd folds, under breasts and L side of groin Topical BID x 14 days, then BID PRN 04/08/20 20 020 Inactive dx: yeast dermatitis Lyrica 100 mg capsule RxNorm: 026639 Take 1 Capsule(s) Oral QHS every night at bedtime 03/13/20 20 020 Inactive Lyrica 50 mg capsule RxNorm: 073268 Take 1 Capsule(s) Oral QAM every morning 03/13/20 20 Inactive ketoconazole 2 % shampoo RxNorm: 705582 Apply Topical two times a week with showers 03/11/20 20 Inactive cholecalciferol (vitamin D3) 50 mcg (2,000 unit) tablet RxNorm: 007267 Take 1 Tablet(s) Oral QD 03/11/20 021 Inactive Zetia 10 mg tablet RxNorm: 509481 Take 1 Tablet(s) Oral QD 03/07/20 20 Inactive Zetia 10 mg tablet RxNorm: 797061 Take 1 Tablet(s) Oral QD 03/07/20 Inactive Lyrica 50 mg capsule RxNorm: 018449 Take 1 Capsule(s) Oral QAM every morning 02/15/20 20 Inactive Lyrica 100 mg capsule RxNorm: 693795 Take 1 Capsule(s) Oral QHS every night at bedtime 02/15/20 Inactive Lyrica 100 mg capsule RxNorm: 025756 Take 1 Capsule(s) Oral QHS every night at bedtime 02/15/20 20 Inactive Lyrica 50 mg capsule RxNorm: 877804 Take 1 Capsule(s) Oral QAM every morning 02/15/20 20 Inactive metoprolol succinate ER 200 mg tablet,extended release 24 hr RxNorm: 947371 Take 1 Tablet(s) Oral QD 08/12/19 23 Active loperamide 2 mg capsule RxNorm: 670734 Take 1 Capsule(s) Oral QID as needed 06/12/19 22 Active hydralazine 50 mg tablet RxNorm: 357227 Take 1 Tablet(s) Oral QID 08/12/19 23 Active venlafaxine ER 75 mg capsule,extended release 24 hr RxNorm: 281116 Take 3 Capsule(s) Oral QD 06/12/19 023 Inactive polyethylene glycol 3350 17 gram/dose oral powder RxNorm: 345661 Take 17=1 capful Gram(s) Oral BID as needed mix with 4-8oz of liquid 06/12/19 22 024 Inactive icosapent ethyl 1 gram capsule RxNorm: 0313437 Take 2 Capsule(s) (2 gm) Oral BID with meals 10/07/19 23 023 Inactive Okay to dispense one 2gm tab if you have that available. Levemir FlexTouch U-100 Insulin 100 unit/mL (3 mL) subcutaneous pen RxNorm: 691764 Inject 80 Unit(s) Subcutaneous BID 07/14/19 23 023 Inactive Novolog Flexpen U-100 Insulin aspart 100 unit/mL (3 mL) subcutaneous RxNorm: 4784560 Insert 30 Unit(s) Subcutaneous TID with meals [...] Codes Status Date Referral: [facility] WPtel: [address], [address] [id number] Referral Records Received 09/21/2022 Referral: [facility] WPtel: [address] [id number] [place] Referral Completed 05/28/2021 Referral: General Cardiology [...] CKD stage 3. He moved into [facility] in 12/2019 but after a hospitalization 05/2021 he moved to the [facility] to have closer nursing attention.??Sister Jyotsna involved in his care cell# [phone]??Guardian: Giulia (tapan met in person 09/01/21), now has Lexii (same group as giulia)AWV 02.08.2024.??Lab Schedule: /September*September (CBC with diff, CMP, A1c)??March: [...] note from 11.08.2023 at [facility] (follow up 6 months)Colon & Rectal Surgery visit scheduled for 03/08/24 with Matilde Pérez PA-C.?? 02/08/2024
--- OUTSIDE RECORDS SUMMARY | 2024-02-19 13:21 | XMS_ITS | CCD ---
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 Tailer Off Name Role Phone Arpit MCKINLEY-C, [facility] Primary Care Provider Leona vailable Arpit DATA REDUCTION TECHNICIAN-C, [facility] Chronic Care Management U navailable Summary Purpose DataExchange Insurance Providers Payer name Policy type / Coverage type Covered libertarian ID Effective Begin Date Effective End Date [place] [id number] Unknown Unknown [place] [id number] Unknown Unknown Family history Sister Brittany Suggs Diagnosis Age At Onset No Family Disease Entered N/A Runs in the family Diagnosis Age At Onset No Known Diseases N/A Sister Blanka Mcduffie Diagnosis Age At Onset No Family Disease Entered N/A Social History Social History Element Codes Description Effec tive Dates Tobacco history SNOMED CT: 819385589 Never smoker 01/16 Sexually Active? Unknown No [...] 10/07/2021 Living arrangements Unknown Snf 09/03/[address]: 675121687 No Alcohol Consum ption 09/02/2020 Allergies, Adverse Reactions, Alerts Substance Reaction Codes Entered Date Inactivated Date Status * NO KNOWN FOOD ALLERGIES Unknown 07/13/2023 No Inactive Date Active LISINOPRIL RxNorm: 19677 02/12/2020 No Inactive Da te Active Metformin [...] E78. 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 pregabalin 100 mg capsule RxNorm: 311174 Take 1 Capsule(s) Oral QAM every morning 02/07/20 24 024 Active isosorbide mononitrate ER 60 mg tablet,extended release 24 hr RxNorm: 838930 Take 1 Tablet(s) Oral QD 02/01/20 24 025 Active aripiprazole 15 mg tablet RxNorm: 022986 Take 1/2 Tablet(s) Oral QD 02/01/20 24 025 Active torsemide 20 mg tablet RxNorm: 023222 1 TAB ORALLY DAILY (DX: EDEMA) 01/27/20 No Stop Date Active potassium chloride ER 20 mEq tablet,extended release(part/cryst) RxNorm: 1839027 2 TABS (40MEQ) ORALLY TWICE DAILY (DX: HYPOKALEMIA) 01/27/20 No Stop Date Active cephalexin 500 mg capsule RxNorm: 366188 Take 1 Capsule(s) Oral QID 12/17/19 24 Inactive cephalexin 500 mg capsule RxNorm: 062633 Take 1 Capsule(s) Oral QID 12/17/19 24 024 Inactive acetaminophen 500 mg tablet RxNorm: 286652 (MAX APAP:4GM/24HR) Take 1 Tablet(s) Oral TID as needed for pain 12/10/19 24 Active torsemide 20 mg tablet RxNorm: 240121 Take 1 Tablet(s) Oral QD 10/26/19 24 024 Inactive potassium chloride ER 20 mEq tablet,extended release RxNorm: 556630 Take 2 Tablet(s) Oral BID 10/26/19 24 Active torsemide 20 mg tablet RxNorm: 383746 Take 1 Tablet(s) Oral QD 10/26/19 24 024 Inactive potassium chloride ER 20 mEq tablet,extended release RxNorm: 090673 Take 2 Tablet(s) Oral BID 10/26/19 24 Inactive Artificial Tears (PF) 0.1 %-0.3 % drops in a dropperette RxNorm: 505534 Apply 1-2 Drop(s) Both eyes BID as needed 09/28/19 24 025 Active erythromycin 5 mg/gram (0.5 %) eye ointment RxNorm: 146933 Apply 1 Application Both eyes QHS every night at bedtime Instill ~1 cm ribbon into affected eye 09/28/19 24 Inactive Artificial Tears (PF) 0.1 %-0.3 % drops in a dropperette RxNorm: 709649 Apply 1-2 Drop(s) Both eyes BID as needed 09/28/19 24 024 Inactive erythromycin 5 mg/gram (0.5 %) eye ointment RxNorm: 909002 Apply 1 Application Both eyes QHS every night at bedtime Instill ~1 cm ribbon into affected eye 09/28/19 24 Inactive acetaminophen 500 mg tablet RxNorm: 479861 (MAX APAP:4GM/24HR) Take 1 Tablet(s) Oral TID as needed for pain 09/24/19 24 024 Inactive carvedilol 25 mg tablet RxNorm: 793511 Take 1 Tablet(s) Oral QD 09/08/19 24 No Stop Date Active pregabalin 100 mg capsule RxNorm: 490549 Take 1 Capsule(s) Oral QAM every morning 09/07/19 24 024 Inactive rosuvastatin 40 mg tablet RxNorm: 008315 Take 1 Tablet(s) Oral QPM every evening 07/13/19 24 No Stop Date Active ezetimibe 10 mg tablet RxNorm: 979677 Take 1 Tablet(s) Oral QD 07/13/19 24 No Stop Date Active bisacodyl 10 mg rectal suppository RxNorm: 628706 Insert 1 Suppository Rectal QD as needed 07/13/19 24 No Stop Date Active polyethylene glycol 3350 17 gram/dose oral powder RxNorm: 506454 Take 17 Gram(s) Oral BID as needed mix in 4-8ox water 07/13/19 24 No Stop Date Active ketoconazole 2 % shampoo RxNorm: 320407 Apply 1 Application Topical UD as directed 07/13/19 24 No Stop Date Active Ozempic 1 mg/dose (4 mg/3 mL) subcutaneous pen injector RxNorm: 3062184 Inject 1 Milligram(s) Subcutaneous QW once a week 07/13/19 24 No Stop Date Active Guaifenesin AC 10 mg-100 mg/5 mL oral liquid RxNorm: 729051 Take 10 Milliliter(s) Oral Q4H every four hours as needed 07/13/19 24 No Stop Date Active ammonium lactate 12 % topical cream RxNorm: 505039 Apply 1 Application Topical BID 07/13/19 24 No Stop Date Active hydrocortisone 2.5 % topical cream RxNorm: 038679 Apply 1 Application Topical BID as needed 07/13/19 24 No Stop Date Active rosuvastatin 20 mg sprinkle capsule RxNorm: 0851567 Take 1 Capsule(s) Oral QD 07/13/19 24 No Stop Date Active Vascepa 1 gram capsule RxNorm: 2287706 Take 2 Capsule(s) Oral BID 07/13/19 24 No Stop Date Active venlafaxine ER 75 mg capsule,extended release 24 hr RxNorm: 229217 Take 3 Capsule(s) Oral QD 07/13/19 24 No Stop Date Active aripiprazole 15 mg tablet RxNorm: 078788 Take 1/2 Tablet(s) Oral QD 07/13/19 24 024 Inactive isosorbide mononitrate ER 60 mg tablet,extended release 24 hr RxNorm: 477276 Take 1 Tablet(s) Oral QD 07/13/19 24 024 Inactive Basaglar KwikPen U-100 Insulin 100 unit/mL (3 mL) subcutaneous RxNorm: 4565809 Inject 30U SubQ twice daily 07/07/19 24 024 Inactive Please dispense one month supply. Basaglar KwikPen U-100 Insulin 100 unit/mL (3 mL) subcutaneous RxNorm: 0243900 Inject 30U SubQ twice daily 07/07/19 24 024 Inactive Please dispense one month supply. pregabalin 150 mg capsule RxNorm: 902379 Take 1 Capsule(s) Oral QHS every night at bedtime 07/05/19 24 024 Inactive pregabalin 150 mg capsule RxNorm: 416051 Take 1 Capsule(s) Oral QHS every night at bedtime 07/05/19 24 024 Inactive polyethylene glycol 3350 17 gram/dose oral powder RxNorm: 683256 Take 1 Packet Oral QD as needed (1 packet = 17g) mix with 4-8oz of liquid 06/15/19 24 024 Inactive bisacodyl 10 mg rectal suppository RxNorm: 051409 Insert one suppository per rectum once daily as needed for constipation 06/15/19 24 024 Inactive bisacodyl 10 mg rectal suppository RxNorm: 712139 Insert one suppository per rectum once daily as needed for constipation 06/15/19 24 024 Inactive pregabalin 100 mg capsule RxNorm: 448153 Take 1 Capsule(s) Oral QAM every morning 04/27/20 024 Inactive Levemir FlexPen 100 unit/mL (3 mL) solution subcutaneous insulin pen RxNorm: 594870 Inject 30 Unit(s) Subcutaneous BID 04/27/20 024 Inactive rosuvastatin 40 mg tablet RxNorm: 716413 Take 1 Tablet(s) Oral QPM every evening 04/16/20 024 Inactive D/C rosuvastatin 20mg venlafaxine ER 75 mg capsule,extended release 24 hr RxNorm: 115536 Take 3 Capsule(s) Oral QD 04/14/20 023 Inactive pregabalin 100 mg capsule RxNorm: 460635 Take 1 Capsule(s) Oral QAM every morning [...] meter clotrimazole 1 % topical cream RxNorm: 005083 Take apply topically to abdominal folds twice daily for 14 days 03/12/20 024 Inactive Ozempic 1 mg/dose (4 mg/3 mL) subcutaneous pen injector RxNorm: 4067201 Inject 1 Milligram(s) Subcutaneous QW once a week 03/11/20 023 Inactive rosuvastatin 20 mg tablet RxNorm: 257315 Take 1 Tablet(s) Oral QD 02/26/20 023 Inactive d/c pravastatin 80mg Ozempic 1 mg/dose (4 mg/3 mL) subcutaneous pen injector RxNorm: 9241931 Inject 1 Milligram(s) Subcutaneous QW once a week 02/20/20 23 023 Inactive pregabalin 150 mg capsule RxNorm: 436815 Take 1 Capsule(s) Oral HS at bed time 02/19/20 023 Inactive pregabalin 100 mg capsule RxNorm: 766000 Take 1 Capsule(s) Oral QAM every morning 02/18/20 23 023 Inactive venlafaxine ER 75 mg capsule,extended release 24 hr RxNorm: 532290 Take 3 Capsule(s) Oral QD 02/04/20 23 023 Inactive FreeStyle Chema 2 Sensor kit RxNorm: use as directed 02/04/20 23 023 Inactive FreeStyle Chema 2 Sensor kit RxNorm: use as directed 02/04/20 23 024 Inactive fluconazole 150 mg tablet RxNorm: 337561 Take 1 Tablet(s) Oral on day 3 and on day 6 02/03/20 23 024 Inactive chlorthalidone 25 mg tablet RxNorm: 824274 Take 1 Tablet(s) Oral QAM every morning 02/03/20 23 No Stop Date Active venlafaxine ER 150 mg capsule,extended release 24 hr RxNorm: 479249 Take 1 Capsule(s) Oral QD 02/03/20 023 Inactive acetaminophen 500 mg tablet RxNorm: 078131 1 TABLET ORALLY 3 TIMES DAILY (MAX APAP:4GM/24HR) 12/15/19 23 023 Inactive clotrimazole 1 % topical cream RxNorm: 834924 apply 1g topically to top of feet and in between toes BID 12/09/19 23 023 Inactive potassium chloride ER 20 mEq tablet,extended release RxNorm: 608482 Take 1 Tablet(s) Oral BID 12/09/19 23 024 Inactive d/c 20mEq once daily (sent from hospital) nystatin 100,000 unit/gram topical powder RxNorm: 950267 APPLY TO AFFECTED AREAS TOPICALLY 2 TIMES DAILY 11/21/19 23 024 Inactive Nystop 100,000 unit/gram topical powder RxNorm: 191165 Apply to abd folds, under breasts and L side of groin Topical BID x 14 days, then BID PRN 11/20/19 23 023 Inactive dx: yeast dermatitis [place] Ultra Strength 4 %-30 %-10 % topical cream RxNorm: 569622 Apply 1 Gram(s) Topical QID PRN to feet and legs for neuropathic pain 11/11/19 024 Inactive clotrimazole 1 % topical cream RxNorm: 110893 Apply 1/2 Gram(s) Topical BID Apply to affected areas of groin, periarea, and abdominal topically 2 times daily 11/10/19 23 023 Inactive hydrocortisone 2.5 % topical cream RxNorm: 738759 Apply 1/2 Gram(s) Topical BID as needed 11/10/19 024 Inactive Humulin R U-500 (Concentrated) Insulin 500 unit/mL subcutaneous soln RxNorm: 797290 Inject 100 Unit(s) Subcutaneous TID 10/07/19 024 Inactive Levemir FlexPen 100 unit/mL (3 mL) solution subcutaneous insulin pen RxNorm: 199575 Inject 30 Unit(s) Subcutaneous BID 10/07/19 023 Inactive Ozempic 0.25 mg or 0.5 mg (2 mg/3 mL) subcutaneous pen injector RxNorm: 8789721 Inject 1/2 Milligram(s) Subcutaneous QW once a week 10/07/19 024 Inactive aripiprazole 15 mg tablet RxNorm: 648013 1/2 TAB (7.5MG) ORALLY DAILY (DX:MAJOR DEPRESSIVE DISORDER) 09/23/19 23 023 Inactive Lancets,Thin 28 gauge RxNorm: Use 1 as directed QID 09/15/19 23 024 Inactive Accu-Chek Guide test strips RxNorm: Use 1 Test Strip QID 09/15/19 23 023 Inactive ok to substitute with any covered alternative test strip torsemide 20 mg tablet RxNorm: 391700 Take 1 Tablet(s) Oral BID 09/09/19 23 024 Inactive d/c once daily dosing carvedilol 25 mg tablet RxNorm: 095795 Take 1 Tablet(s) Oral QD 08/25/19 23 024 Inactive pregabalin 150 mg capsule RxNorm: 545189 1 Capsule(s) Oral HS at bed time 08/18/19 023 Inactive pregabalin 100 mg capsule RxNorm: 030533 1 Capsule(s) Oral QAM every morning 08/18/19 23 023 Inactive carvedilol 25 mg tablet RxNorm: 930760 1 Tablet(s) Oral QD 07/28/19 23 023 Inactive lisinopril 20 mg tablet RxNorm: 003247 Give 1 Tablet(s) Oral QD 07/28/19 23 023 Inactive Lyrica 150 mg capsule RxNorm: 676179 Take 1 Capsule(s) Oral QHS every night at bedtime 07/19/19 023 Inactive d/c 100mg dose Diflucan 150 mg tablet RxNorm: 668954 Take 1 Tablet(s) Oral QD repeat on day 3 and 6 07/19/19 023 Inactive pregabalin 100 mg capsule RxNorm: 249665 Take 1 Capsule(s) Oral QAM every morning 07/19/19 023 Inactive gatifloxacin 0.5 % eye drops RxNorm: 861071 Instill 1 Drop(s) as directed TID Instill 1 drop in to affected eye(s) starting 1 day prior to surgery and continue until gone (do not exceed 4 weeks). 07/13/19 023 Inactive carvedilol 25 mg tablet RxNorm: 113678 2 Tablet(s) Oral BID 07/13/19 023 Inactive Humulin R Regular U-100 Insulin 100 unit/mL injection solution RxNorm: 031140 85 Unit(s) Injection TID 07/13/19 23 023 Inactive ketorolac 0.5 % eye drops RxNorm: 073879 Instill 1 Drop(s) as directed QID Instill 1 drop into affected eye(s) 4 times daily starting 1 day prior to surgery and continue until gone (do not exceed 4 weeks). 07/13/19 23 023 Inactive Diflucan 150 mg tablet RxNorm: 012996 Take 1 Tablet(s) Oral QD repeat on day 3 and 6 06/30/19 23 023 Inactive Accu-Chek Guide test strips RxNorm: Use 1 Test Strip QID Use 1 test strip to monitor blood glucose 4 times daily and as needed. Dx:E11.42. 06/23/19 23 023 Inactive ok to substitute with any covered alternative test strip dextromethorphan-gu aifenesin 10 mg-100 mg/5 mL oral liquid RxNorm: 019187 Take 10 Milliliter(s) Oral every 4 hours as needed for cough 06/19/19 023 Inactive dextromethorphan-gu aifenesin 10 mg-100 mg/5 mL oral liquid RxNorm: 899786 Take 10 Milliliter(s) Oral every 4 hours as needed for cough 06/19/19 023 Inactive Lyrica 150 mg capsule RxNorm: 344927 Take 1 Capsule(s) Oral QHS every night at bedtime 06/18/19 023 Inactive d/c 100mg dose aripiprazole 15 mg tablet RxNorm: 118643 1/2 TAB (7.5MG) ORALLY DAILY (DX:MAJOR DEPRESSIVE DISORDER) 06/05/19 023 Inactive pregabalin 100 mg capsule RxNorm: 684096 1 Capsule(s) Oral QAM every morning 06/02/19 023 Inactive Banophen 50 mg capsule RxNorm: 6933078 Take 1 Capsule(s) Oral Q6H every 6 hours as needed 05/19/19 23 No Stop Date Active Novolog Flexpen U-100 Insulin aspart 100 unit/mL (3 mL) subcutaneous RxNorm: 4591189 Inject 10 Unit(s) Subcutaneous QHS every night at bedtime with nighttime snack 04/08/20 022 Inactive Novolog Flexpen U-100 Insulin aspart 100 unit/mL (3 mL) subcutaneous RxNorm: 5671950 Inject 42 Unit(s) Subcutaneous TID in addition to sliding scale 04/08/20 022 Inactive d/c 36u albuterol sulfate HFA 90 mcg/actuation aerosol inhaler RxNorm: 4256064 Take 2 Puff(s) Inhalation Q4H every four hours as needed as needed for SOB, cough, or wheezing 04/07/20 030 Active Banophen 50 mg capsule RxNorm: 5185907 Take 1 Capsule(s) Oral Q6H every 6 hours as needed 04/06/20 023 Inactive diphenhydramine 50 mg tablet RxNorm: 9574028 Take 1 Tablet(s) Oral Q6H every 6 hours as needed 04/06/20 22 022 Inactive diphenhydramine 50 mg tablet RxNorm: 9024613 1 Tablet(s) Oral Q6H every 6 hours as needed 04/06/20 22 022 Inactive Abilify 15 mg tablet RxNorm: 323669 1/2 Tablet(s) Oral QD 03/10/20 023 Inactive Shingrix (PF) 50 mcg/0.5 mL intramuscular suspension, kit RxNorm: 6517991 Administer 1/2 Milliliter(s) Intramuscular QD one time shingrix step 2 ( step 1 given 11/04/21) WITH needle - Nursing please administer upon arrival and once administered post a bridge message with date of administration, call center agent, expiration date, and lot# so we can update [facility] 02/18/20 22 022 Inactive dispense with needle Shingrix (PF) 50 mcg/0.5 mL intramuscular suspension, kit RxNorm: 9377602 Administer 1/2 Milliliter(s) Intramuscular QD one time shingrix step 2 ( step 1 given 11/04/21) WITH needle - Nursing please administer upon arrival and once administered post a bridge message with date of administration, call center agent, expiration date, and lot# so we can update [facility] 02/18/20 22 022 Inactive dispense with needle polyethylene glycol 3350 17 gram/dose oral powder RxNorm: 136792 Take 17=1 capful Gram(s) Oral QD mix with 4-8oz of liquid 01/08/20 22 023 Inactive take this in addition to BID prn order Lyrica 100 mg capsule RxNorm: 705915 Take 1 Capsule(s) Oral QAM every morning 01/08/20 22 022 Inactive d/c 50mg dose acetaminophen 500 mg tablet RxNorm: 707400 Take 1 Tablet(s) Oral TID 01/08/20 22 022 Inactive d/c PRN order Lyrica 150 mg capsule RxNorm: 871440 Take 1 Capsule(s) Oral QHS every night at bedtime 01/08/20 22 023 Inactive d/c 100mg dose Abilify 5 mg tablet RxNorm: 178890 Take 1 Tablet(s) Oral QD take 1 tab po QD #30 refill 5 dx: MDD 12/12/19 22 022 Inactive Abilify 5 mg tablet RxNorm: 896790 Take 1 Tablet(s) Oral QD take 1 tab po QD #30 refill 5 dx: MDD 12/12/19 22 022 Inactive Novolog Flexpen U-100 Insulin aspart 100 unit/mL (3 mL) subcutaneous RxNorm: 1841787 Inject 42 Unit(s) Subcutaneous TID in addition to sliding scale 12/10/19 22 022 Inactive d/c 36u chlorthalidone 25 mg tablet RxNorm: 231288 Take 1 Tablet(s) Oral QAM every morning 12/10/19 22 023 Inactive pregabalin 50 mg capsule RxNorm: 051546 Take 1 Capsule(s) Oral QAM every morning 11/12/19 22 022 Inactive tetanus-diphtheria toxoids-Td 2 Lf unit-2 Lf unit/0.5 mL IM suspension RxNorm: 139 Take 0.5 Miscellaneous Intramuscular 11/12/19 22 022 Inactive need tdap - nursing to administer upon arrival pregabalin 50 mg capsule RxNorm: 180485 Take 1 Capsule(s) Oral QAM every morning 10/16/19 22 022 Inactive pregabalin 50 mg capsule RxNorm: 877899 Take 1 Capsule(s) Oral QAM every morning 10/16/19 22 022 Inactive pregabalin 50 mg capsule RxNorm: 143884 1 Capsule(s) Oral QAM every morning 10/15/19 22 022 Inactive Shingrix (PF) 50 mcg/0.5 mL intramuscular suspension, kit RxNorm: 3955954 Administer 1/2 Milliliter(s) Intramuscular one time Nursing please administer upon arrival and once administered post a bridge message with date of administration, call center agent, expiration date, and lot# so we can update [facility]. 10/09/19 22 022 Inactive shingrix step 1 Shingrix (PF) 50 mcg/0.5 mL intramuscular suspension, kit RxNorm: 8001961 Administer 1/2 Milliliter(s) Intramuscular one time Nursing please administer upon arrival and once administered post a bridge message with date of administration, call center agent, expiration date, and lot# so we can update [facility]. 10/09/19 22 022 Inactive shingrix step 1 cholecalciferol (vitamin D3) 1,250 mcg (50,000 unit) capsule RxNorm: 768698 Take 1 Capsule(s) Oral QW once a [...] aspart 100 unit/mL (3 mL) subcutaneous RxNorm: 3356411 Inject 10 Unit(s) Subcutaneous QHS every night at bedtime with nighttime snack 10/08/19 22 Inactive Shingrix (PF) 50 mcg/0.5 mL intramuscular suspension, kit RxNorm: 9450977 ADMINISTER 2-DOSE SERIES PER CDC GUIDELINES 10/08/19 22 022 Active Shingrix (PF) 50 mcg/0.5 mL intramuscular suspension, kit RxNorm: 0689577 ADMINISTER 2-DOSE SERIES PER CDC GUIDELINES 10/08/19 22 022 Inactive Novolog Flexpen U-100 Insulin aspart 100 unit/mL (3 mL) subcutaneous RxNorm: 3522910 Inject 36 Unit(s) Subcutaneous TID in addition to sliding scale 10/08/19 22 Inactive Novofine Autocover 30 gauge x 1/3 needle RxNorm: Use 1 Miscellaneous UD as directed Use 1 needle as directed to administer insulin 5 times a day Dx:E11.42. 10/03/19 22 Inactive ok to substitute with any covered alternative pen needle benzoyl peroxide 10 % topical cleanser RxNorm: 044398 Apply 1 Application Topical QD apply to face, wash rinse and dry once daily (may change to QOD if drying) 08/19/19 22 022 Inactive (%covered by insurance) #60ml refill 11 dx: acne benzoyl peroxide 10 % topical cleanser RxNorm: 994753 Apply 1 Application Topical QD apply to face, wash rinse and dry once daily (may change to QOD if drying) 08/19/19 22 022 Inactive (%covered by insurance) #60ml refill 11 dx: acne benzoyl peroxide 10 % topical cleanser RxNorm: 498867 Apply 1 Application Topical QD apply to face, wash rinse and dry once daily (may change to QOD if drying) 08/19/19 022 Inactive (%covered by insurance) #60ml refill 11 dx: acne Lyrica 50 mg capsule RxNorm: 037433 Take 1 Capsule(s) Oral QAM every morning Take 1 capsule by mouth once daily 08/19/19 Inactive benzoyl peroxide 10 % topical cleanser RxNorm: 800044 Apply 1 Application Topical QD apply to face, wash rinse and dry once daily (may change to QOD if drying) 08/19/19 22 022 Inactive (%covered by insurance) #60ml refill 11 dx: acne Lyrica 100 mg capsule RxNorm: 553659 Take 1 Capsule(s) Oral QHS every night at bedtime Take 1 capsule by mouth once daily at bedtime 08/19/19 22 022 Inactive Lyrica 100 mg capsule RxNorm: 887122 Take 1 Capsule(s) Oral QHS every night at bedtime Take 1 capsule by mouth once daily at bedtime 08/16/19 22 022 Inactive Lyrica 50 mg capsule RxNorm: 999446 Take 1 Capsule(s) Oral QAM every morning Take 1 capsule by mouth once daily 08/16/19 22 022 Inactive Levemir FlexTouch U-100 Insulin 100 unit/mL (3 mL) subcutaneous pen RxNorm: 230593 Inject 86 Unit(s) Subcutaneous BID 08/05/19 22 022 Inactive d/c 83units BID Lyrica 100 mg capsule RxNorm: 952785 Take 1 Capsule(s) Oral QHS every night at bedtime Take 1 capsule by mouth once daily at bedtime 07/14/19 22 Inactive Lyrica 50 mg capsule RxNorm: 862557 Take 1 Capsule(s) Oral QAM every morning Take 1 capsule by mouth once daily 07/14/19 22 022 Inactive Levemir FlexTouch U-100 Insulin 100 unit/mL (3 mL) subcutaneous pen RxNorm: 138070 Inject 83 Unit(s) Subcutaneous BID 07/08/19 22 [...] test strip hydralazine 50 mg tablet RxNorm: 089234 Take 1 Tablet(s) Oral QID 05/05/20 21 Inactive venlafaxine ER 225 mg tablet,extended release 24 hr RxNorm: 736668 Take 1 Tablet(s) Oral QD 05/05/20 021 Inactive venlafaxine ER 225 mg tablet,extended release 24 hr RxNorm: 183051 Take 1 Tablet(s) Oral QD 05/05/20 022 Inactive isosorbide mononitrate ER 30 mg tablet,extended release 24 hr RxNorm: 747395 Take 1 Tablet(s) Oral QD 05/05/20 024 Inactive hydralazine 50 mg tablet RxNorm: 008173 Take 1 Tablet(s) Oral QID 05/05/20 Inactive aspirin 81 mg tablet,delayed release RxNorm: 858526 Take 1 Tablet(s) Oral QD 03/31/20 022 Inactive Vitamin D2 1,250 mcg (50,000 unit) capsule RxNorm: 6278160 Take 1 Capsule(s) Oral QW once a week x 12 weeks 03/31/20 022 Inactive Vitamin D2 1,250 mcg (50,000 unit) capsule RxNorm: 5677645 Take 1 Capsule(s) Oral QW once a week 03/31/20 Inactive Zetia 10 mg tablet RxNorm: 898179 Take 1 Tablet(s) Oral QD 03/31/20 024 Inactive Zetia 10 mg tablet RxNorm: 184427 Take 1 Tablet(s) Oral QD 03/31/20 021 Inactive hydralazine 25 mg tablet RxNorm: 583035 Take 1 Tablet(s) Oral QID 03/31/20 21 021 Inactive hydralazine 25 mg tablet RxNorm: 608304 Take 1 Tablet(s) Oral QID 03/31/20 021 Inactive hydralazine 10 mg tablet RxNorm: 336976 Take 1 Tablet(s) Oral QID 03/03/20 021 Inactive cephalexin 500 mg tablet RxNorm: 606595 Take 1 Tablet(s) Oral QID 02/27/20 021 Inactive cephalexin 500 mg tablet RxNorm: 243257 Take 1 Tablet(s) Oral QID 02/27/20 021 Inactive lisinopril 40 mg tablet RxNorm: 045909 Take 1 Tablet(s) Oral QD 02/11/20 023 Inactive Eliquis 5 mg tablet RxNorm: 2090736 Take 1 Tablet(s) Oral BID 01/05/20 022 Inactive Eliquis 5 mg tablet RxNorm: 2540908 Take 2 Tablet(s) Oral QD 01/01/20 021 Inactive Lyrica 50 mg capsule RxNorm: 439923 Take 1 Capsule(s) Oral QAM every morning 12/24/19 021 Inactive Lyrica 100 mg capsule RxNorm: 652957 Take 1 Capsule(s) Oral QHS every night at bedtime 12/24/19 021 Inactive clotrimazole 1 % topical cream RxNorm: 498082 Apply to right foot and toes Topical BID 12/04/19 21 023 Inactive metoprolol succinate ER 200 mg tablet,extended release 24 hr RxNorm: 437616 Take 1 Tablet(s) Oral QD 12/04/19 023 Inactive ciprofloxacin 500 mg tablet RxNorm: 973337 Take 1 Tablet(s) Oral QD 11/30/19 021 Inactive DX ofloxacin otic drops Accu-Chek Guide test strips RxNorm: USE 1 TO CHECK GLUCOSE 4 TIMES DAILY AND NEEDED 11/15/19 21 023 Inactive Blood Glucose Test strips RxNorm: Use 1 Test Strip QID at PRN 11/05/19 21 023 Inactive E11.42 lisinopril 30 mg tablet RxNorm: 826618 Take 1 Tablet(s) Oral QD 10/30/19 21 021 Inactive lisinopril 20 mg tablet RxNorm: 074403 Take 1 Tablet(s) Oral QD 10/23/19 21 021 Inactive lisinopril 20 mg tablet RxNorm: 162845 Take 1 Tablet(s) Oral QD 10/23/19 21 021 Inactive lisinopril 10 mg tablet RxNorm: 470157 Take 1 Tablet(s) Oral QD 10/02/19 21 021 Inactive icosapent ethyl 1 gram capsule RxNorm: 1023378 Take 2 Capsule(s) (2 gm) Oral BID with meals 09/12/19 024 Inactive Okay to dispense one 2gm tab if you have that available. icosapent ethyl 1 gram capsule RxNorm: 1088343 Take 2 Capsule(s) Oral BID 09/12/19 021 Inactive Okay to dispense one 2gm tab if you have that available. amlodipine 10 mg tablet RxNorm: 424341 Take 1 Tablet(s) Oral QD 09/04/19 21 022 Inactive aspirin 81 mg tablet,delayed release RxNorm: 021797 Take 1 Tablet(s) Oral QD 09/04/19 21 021 Inactive Levemir FlexTouch U-100 Insulin 100 unit/mL (3 mL) subcutaneous pen RxNorm: 012960 Inject 150 Unit(s) Subcutaneous BID 09/04/19 21 022 Inactive venlafaxine ER 150 mg tablet,extended release 24 hr RxNorm: 875262 Take 1 Tablet(s) Oral QD 09/04/19 21 021 Inactive clotrimazole-betame thasone 1 %-0.05 % topical cream RxNorm: 034350 Apply to rash on red area on left abdomen/chest Topical BID 08/10/19 21 021 Inactive amlodipine 5 mg tablet RxNorm: 385571 Take 1 Tablet(s) Oral QD 07/31/19 21 021 Inactive cephalexin 500 mg tablet RxNorm: 846527 Take 1 Tablet(s) Oral BID BID - Twice Daily 07/31/19 21 021 Inactive Start 08/01/20 pantoprazole 40 mg tablet,delayed release RxNorm: 369057 Take 1 Tablet(s) Oral QAM every morning 07/08/19 022 Inactive senna 8.6 mg tablet RxNorm: 497975 Take 1 Tablet(s) Oral QD 07/08/19 21 022 Inactive carbamazepine 200 mg tablet RxNorm: 457805 Take 1 Tablet(s) Oral BID 07/08/19 21 022 Inactive clopidogrel 75 mg tablet RxNorm: 442067 Take 1 Tablet(s) Oral QD 07/08/19 21 021 Inactive Blood Glucose Test strips RxNorm: Use 1 Test Strip QID at PRN 07/08/19 21 Inactive E11.42 Novolog Flexpen U-100 Insulin aspart 100 unit/mL (3 mL) subcutaneous RxNorm: 7552084 Administer per sliding scale Milliliter(s) Subcutaneous TID 151-200: 10 u; 201-250: 20 u; 251-300: 30 u; 301-350: 40 u; 351-400: 50 u. 07/08/19 21 022 Inactive lisinopril 5 mg tablet RxNorm: 653149 Take 1 Tablet(s) Oral QD 07/08/19 021 Inactive Novolog Flexpen U-100 Insulin aspart 100 unit/mL (3 mL) subcutaneous RxNorm: 2543498 Inject 85 Unit(s) Subcutaneous TID 07/08/19 022 Inactive pravastatin 80 mg tablet RxNorm: 875326 Take 1 Tablet(s) Oral QHS every night at bedtime 07/08/19 023 Inactive clotrimazole 1 % topical cream RxNorm: 546025 Apply to bilateral groin areas Topical BID 07/08/19 21 022 Inactive metoprolol succinate ER 200 mg tablet,extended release 24 hr RxNorm: 889626 Take 1 Tablet(s) Oral QD 07/08/19 21 021 Inactive Vitamin D3 25 mcg (1,000 unit) tablet RxNorm: 223609 Take 1 Tablet(s) Oral QD 07/08/19 021 Inactive isosorbide dinitrate 30 mg tablet RxNorm: 413167 Take 1 Tablet(s) Oral QD 07/08/19 Inactive Levemir FlexTouch U-100 Insulin 100 unit/mL (3 mL) subcutaneous pen RxNorm: 623080 Inject 140 Unit(s) Subcutaneous BID 07/08/19 021 Inactive torsemide 20 mg tablet RxNorm: 813085 Take 1 Tablet(s) Oral QD 07/08/19 023 Inactive venlafaxine 75 mg tablet RxNorm: 139144 Take 1 Tablet(s) Oral QD 07/08/19 Inactive acetaminophen 500 mg tablet RxNorm: 386866 Take 1 Tablet(s) Oral TID as needed for headache 06/18/19 Inactive acetaminophen 500 mg tablet RxNorm: 034637 Take 1 Tablet(s) Oral TID as needed for headache 06/18/19 021 Inactive Lyrica 100 mg capsule RxNorm: 243950 Take 1 Capsule(s) Oral QHS every night at bedtime 06/11/19 021 Inactive Lyrica 50 mg capsule RxNorm: 918950 Take 1 Capsule(s) Oral QAM every morning 06/10/19 21 021 Inactive hydrocortisone 2.5 % topical cream RxNorm: 739033 Apply to bilateral groin creases Topical BID 05/15/20 20 021 Inactive clotrimazole 1 % topical cream RxNorm: 037180 Apply to bilateral groin areas Topical BID 05/15/20 20 021 Inactive Lyrica 50 mg capsule RxNorm: 245773 Take 1 Capsule(s) Oral QAM every morning 05/14/20 20 Inactive Lyrica 100 mg capsule RxNorm: 316099 Take 1 Capsule(s) Oral QHS every night [...] Inactive Nystop 100,000 unit/gram topical powder RxNorm: 122550 Apply to abd folds, under breasts and L side of groin Topical BID x 14 days, then BID PRN 04/08/20 20 Inactive dx: yeast dermatitis Lyrica 100 mg capsule RxNorm: 961633 Take 1 Capsule(s) Oral QHS every night at bedtime 03/13/20 20 Inactive Lyrica 50 mg capsule RxNorm: 896918 Take 1 Capsule(s) Oral QAM every morning 03/13/20 20 Inactive ketoconazole 2 % shampoo RxNorm: 092053 Apply Topical two times a week with showers 03/11/20 20 024 Inactive cholecalciferol (vitamin D3) 50 mcg (2,000 unit) tablet RxNorm: 929845 Take 1 Tablet(s) Oral QD 03/11/20 20 021 Inactive Zetia 10 mg tablet RxNorm: 472296 Take 1 Tablet(s) Oral QD 03/07/20 20 021 Inactive Zetia 10 mg tablet RxNorm: 646331 Take 1 Tablet(s) Oral QD 03/07/20 20 020 Inactive Lyrica 50 mg capsule RxNorm: 461588 Take 1 Capsule(s) Oral QAM every morning 02/15/20 20 Inactive Lyrica 100 mg capsule RxNorm: 596339 Take 1 Capsule(s) Oral QHS every night at bedtime 02/15/20 20 Inactive Lyrica 100 mg capsule RxNorm: 951624 Take 1 Capsule(s) Oral QHS every night at bedtime 02/15/20 Inactive Lyrica 50 mg capsule RxNorm: 899613 Take 1 Capsule(s) Oral QAM every morning 02/15/20 20 Inactive metoprolol succinate ER 200 mg tablet,extended release 24 hr RxNorm: 212403 Take 1 Tablet(s) Oral QD 08/12/19 23 Active loperamide 2 mg capsule RxNorm: 741328 Take 1 Capsule(s) Oral QID as needed 06/12/19 22 Active hydralazine 50 mg tablet RxNorm: 816292 Take 1 Tablet(s) Oral QID 08/12/19 23 Active venlafaxine ER 75 mg capsule,extended release 24 hr RxNorm: 494920 Take 3 Capsule(s) Oral QD 06/12/19 22 023 Inactive polyethylene glycol 3350 17 gram/dose oral powder RxNorm: 648489 Take 17=1 capful Gram(s) Oral BID as needed mix with 4-8oz of liquid 06/12/19 22 024 Inactive icosapent ethyl 1 gram capsule RxNorm: 1655961 Take 2 Capsule(s) (2 gm) Oral BID with meals 10/07/19 23 023 Inactive Okay to dispense one 2gm tab if you have that available. Levemir FlexTouch U-100 Insulin 100 unit/mL (3 mL) subcutaneous pen RxNorm: 494639 Inject 80 Unit(s) Subcutaneous BID 07/14/19 23 023 Inactive Novolog Flexpen U-100 Insulin aspart 100 unit/mL (3 mL) subcutaneous RxNorm: 8578508 Insert 30 Unit(s) Subcutaneous TID with meals [...] [facility] [place]: [phone] [id number] [place] Referral Records Received 09/21/2022 Referral: [facility] [place]: [address] [id number] [place] Referral Completed 05/28/2021 Referral: General Cardiology [...] attention.??Sister Jyotsna involved in his care cell# [phone]??Guardian: Giulia (tapan met in person 09/01/21), now [...] note from 11.08.2023 at [facility] [place] (follow up 6 months)Colon & Rectal Surgery visit scheduled for 03/08/24 with Matilde Pérez PA-C.?? 02/08/2024
--- OUTSIDE RECORDS SUMMARY | 2024-02-19 13:21 | XMS_ITS | CCD ---
Author Name Cecilio Durham feliberto Address [address] [place] [address] Phone Organization [facility] Phone Care Team Providers Care Economic Research Assistant Name Role Phone Arpit VIDALKeeganHarrison Primary Care Provider Leona vailable Harrison [facility] U navailable Summary Purpose DataExchange Insurance Providers Payer name Policy type / Coverage type Covered libertarian ID Effective Begin Date Effective End Date Medicare [place] Medicare Part B [id number] Unknown Unknown Medicaid [place] Medicare Part B [id number] Unknown Unknown Family history Sister Brittany Suggs [...] Unknown Alf 09/03/[address]: 8704520 Non-Smoker / No History of Smoking 09/02/[address]: [id number] No Alcohol Consum ption 09/02/2020 Allergies, Adverse Reactions, Alerts Substance Reaction Codes Entered Date Inactivated Date Status * NO KNOWN FOOD ALLERGIES Unknown 07/13/2023 No Inactive Date Active LISINOPRIL RxNorm: 88595 02/12/2020 No Inactive Da te Active Metformin [...] 09/07/2023 Resolved Coronary artery disease invo lving round [...] 60 mg tablet,extended release 24 hr RxNorm: 979524 Take 1 Tablet(s) Oral QD 02/01/20 24 025 Active aripiprazole 15 mg tablet RxNorm: 127297 Take 1/2 Tablet(s) Oral QD 02/01/20 24 025 Active torsemide 20 mg tablet RxNorm: 484362 1 TAB ORALLY DAILY (DX: EDEMA) 01/27/20 No Stop Date Active potassium chloride ER 20 mEq tablet,extended release(part/cryst) RxNorm: 7408567 2 TABS (40MEQ) ORALLY TWICE DAILY (DX: HYPOKALEMIA) 01/27/20 No Stop Date Active cephalexin 500 mg capsule RxNorm: 272614 Take 1 Capsule(s) Oral QID 12/17/19 24 024 Inactive cephalexin 500 mg capsule RxNorm: 334837 Take 1 Capsule(s) Oral QID 12/17/19 24 024 Inactive acetaminophen 500 mg tablet RxNorm: 471687 (MAX APAP:4GM/24HR) Take 1 Tablet(s) Oral TID as needed for pain 12/10/19 24 024 Active torsemide 20 mg tablet RxNorm: 493840 Take 1 Tablet(s) Oral QD 10/26/19 24 024 Inactive potassium chloride ER 20 mEq tablet,extended release RxNorm: 507055 Take 2 Tablet(s) Oral BID 10/26/19 24 025 Active torsemide 20 mg tablet RxNorm: 941705 Take 1 Tablet(s) Oral QD 10/26/19 24 024 Inactive potassium chloride ER 20 mEq tablet,extended release RxNorm: 423570 Take 2 Tablet(s) Oral BID 10/26/19 24 024 Inactive Artificial Tears (PF) 0.1 %-0.3 % drops in a dropperette RxNorm: 658143 Apply 1-2 Drop(s) Both eyes BID as needed 09/28/19 24 025 Active erythromycin 5 mg/gram (0.5 %) eye ointment RxNorm: 088313 Apply 1 Application Both eyes QHS every night at bedtime Instill ~1 cm ribbon into affected eye 09/28/19 24 024 Inactive Artificial Tears (PF) 0.1 %-0.3 % drops in a dropperette RxNorm: 605500 Apply 1-2 Drop(s) Both eyes BID as needed 09/28/19 24 024 Inactive erythromycin 5 mg/gram (0.5 %) eye ointment RxNorm: 095660 Apply 1 Application Both eyes QHS every night at bedtime Instill ~1 cm ribbon into affected eye 09/28/19 24 024 Inactive acetaminophen 500 mg tablet RxNorm: 762217 (MAX APAP:4GM/24HR) Take 1 Tablet(s) Oral TID as needed for pain 09/24/19 24 024 Inactive carvedilol 25 mg tablet RxNorm: 315355 Take 1 Tablet(s) Oral QD 09/08/19 24 No Stop Date Active pregabalin 100 mg capsule RxNorm: 288909 Take 1 Capsule(s) Oral QAM every morning 09/07/19 24 024 Inactive rosuvastatin 40 mg tablet RxNorm: 971885 Take 1 Tablet(s) Oral QPM every evening 07/13/19 24 No Stop Date Active ezetimibe 10 mg tablet RxNorm: 027340 Take 1 Tablet(s) Oral QD 07/13/19 24 No Stop Date Active bisacodyl 10 mg rectal suppository RxNorm: 204908 Insert 1 Suppository Rectal QD as needed 07/13/19 24 No Stop Date Active polyethylene glycol 3350 17 gram/dose oral powder RxNorm: 612787 Take 17 Gram(s) Oral BID as needed mix in 4-8ox water 07/13/19 24 No Stop Date Active ketoconazole 2 % shampoo RxNorm: 879904 Apply 1 Application Topical UD as directed 07/13/19 24 No Stop Date Active Ozempic 1 mg/dose (4 mg/3 mL) subcutaneous pen injector RxNorm: 7500187 Inject 1 Milligram(s) Subcutaneous QW once a week 07/13/19 24 No Stop Date Active Guaifenesin AC 10 mg-100 mg/5 mL oral liquid RxNorm: 943426 Take 10 Milliliter(s) Oral Q4H every four hours as needed 07/13/19 24 No Stop Date Active ammonium lactate 12 % topical cream RxNorm: 631795 Apply 1 Application Topical BID 07/13/19 24 No Stop Date Active hydrocortisone 2.5 % topical cream RxNorm: 126764 Apply 1 Application Topical BID as needed 07/13/19 24 No Stop Date Active rosuvastatin 20 mg sprinkle capsule RxNorm: 0871496 Take 1 Capsule(s) Oral QD 07/13/19 24 No Stop Date Active Vascepa 1 gram capsule RxNorm: 5566778 Take 2 Capsule(s) Oral BID 07/13/19 24 No Stop Date Active venlafaxine ER 75 mg capsule,extended release 24 hr RxNorm: 694971 Take 3 Capsule(s) Oral QD 07/13/19 24 No Stop Date Active aripiprazole 15 mg tablet RxNorm: 552443 Take 1/2 Tablet(s) Oral QD 07/13/19 24 024 Inactive isosorbide mononitrate ER 60 mg tablet,extended release 24 hr RxNorm: 792806 Take 1 Tablet(s) Oral QD 07/13/19 24 024 Inactive Basaglar KwikPen U-100 Insulin 100 unit/mL (3 mL) subcutaneous RxNorm: 0320633 Inject 30U SubQ twice daily 07/07/19 24 024 Inactive Please dispense one month supply. Basaglar KwikPen U-100 Insulin 100 unit/mL (3 mL) subcutaneous RxNorm: 2596299 Inject 30U SubQ twice daily 02 024 Inactive Please dispense one month supply. pregabalin 150 mg capsule RxNorm: 716419 Take 1 Capsule(s) Oral QHS every night at bedtime 07/05/19 024 Inactive pregabalin 150 mg capsule RxNorm: 719852 Take 1 Capsule(s) Oral QHS every night at bedtime 07/05/19 24 024 Inactive polyethylene glycol 3350 17 gram/dose oral powder RxNorm: 822138 Take 1 Packet Oral QD as needed (1 packet = 17g) mix with 4-8oz of liquid 06/15/19 24 024 Inactive bisacodyl 10 mg rectal suppository RxNorm: 838240 Insert one suppository per rectum once daily as needed for constipation 06/15/19 24 024 Inactive bisacodyl 10 mg rectal suppository RxNorm: 281467 Insert one suppository per rectum once daily as needed for constipation 06/15/19 024 Inactive pregabalin 100 mg capsule RxNorm: 094117 Take 1 Capsule(s) Oral QAM every morning 04/27/20 024 Inactive Levemir FlexPen 100 unit/mL (3 mL) solution subcutaneous insulin pen RxNorm: 813574 Inject 30 Unit(s) Subcutaneous BID 04/27/20 23 024 Inactive rosuvastatin 40 mg tablet RxNorm: 717220 Take 1 Tablet(s) Oral QPM every evening 04/16/20 024 Inactive D/C rosuvastatin 20mg venlafaxine ER 75 mg capsule,extended release 24 hr RxNorm: 970755 Take 3 Capsule(s) Oral QD 04/14/20 23 023 Inactive pregabalin 100 mg capsule RxNorm: 152449 Take 1 Capsule(s) Oral QAM every morning [...] meter clotrimazole 1 % topical cream RxNorm: 743564 Take apply topically to abdominal folds twice daily for 14 days 03/12/20 024 Inactive Ozempic 1 mg/dose (4 mg/3 mL) subcutaneous pen injector RxNorm: 0407210 Inject 1 Milligram(s) Subcutaneous QW once a week 03/11/20 23 023 Inactive rosuvastatin 20 mg tablet RxNorm: 779255 Take 1 Tablet(s) Oral QD 02/26/20 23 023 Inactive d/c pravastatin 80mg Ozempic 1 mg/dose (4 mg/3 mL) subcutaneous pen injector RxNorm: 3080271 Inject 1 Milligram(s) Subcutaneous QW once a week 02/20/20 23 023 Inactive pregabalin 150 mg capsule RxNorm: 347369 Take 1 Capsule(s) Oral HS at bed time 02/19/20 23 023 Inactive pregabalin 100 mg capsule RxNorm: 512039 Take 1 Capsule(s) Oral QAM every morning 02/18/20 23 023 Inactive venlafaxine ER 75 mg capsule,extended release 24 hr RxNorm: 798904 Take 3 Capsule(s) Oral QD 02/04/20 23 023 Inactive FreeStyle Chema 2 Sensor kit RxNorm: use as directed 02/04/20 023 Inactive FreeStyle Chema 2 Sensor kit RxNorm: use as directed 02/04/20 23 024 Inactive fluconazole 150 mg tablet RxNorm: 355706 Take 1 Tablet(s) Oral on day 3 and on day 6 02/03/20 23 024 Inactive chlorthalidone 25 mg tablet RxNorm: 320718 Take 1 Tablet(s) Oral QAM every morning 02/03/20 23 No Stop Date Active venlafaxine ER 150 mg capsule,extended release 24 hr RxNorm: 083279 Take 1 Capsule(s) Oral QD 02/03/20 023 Inactive acetaminophen 500 mg tablet RxNorm: 379314 1 TABLET ORALLY 3 TIMES DAILY (MAX APAP:4GM/24HR) 12/15/19 023 Inactive clotrimazole 1 % topical cream RxNorm: 689507 apply 1g topically to top of feet and in between toes BID 12/09/19 23 023 Inactive potassium chloride ER 20 mEq tablet,extended release RxNorm: 073933 Take 1 Tablet(s) Oral BID 12/09/19 024 Inactive d/c 20mEq once daily (sent from hospital) nystatin 100,000 unit/gram topical powder RxNorm: 345136 APPLY TO AFFECTED AREAS TOPICALLY 2 TIMES DAILY 11/21/19 024 Inactive Nystop 100,000 unit/gram topical powder RxNorm: 399925 Apply to abd folds, under breasts and L side of groin Topical BID x 14 days, then BID PRN 11/20/19 023 Inactive dx: yeast dermatitis Bengay Ultra Strength 4 %-30 %-10 % topical cream RxNorm: 714378 Apply 1 Gram(s) Topical QID PRN to feet and legs for neuropathic pain 11/11/19 024 Inactive clotrimazole 1 % topical cream RxNorm: 597511 Apply 1/2 Gram(s) Topical BID Apply to affected areas of groin, periarea, and abdominal topically 2 times daily 11/10/19 023 Inactive hydrocortisone 2.5 % topical cream RxNorm: 594236 Apply 1/2 Gram(s) Topical BID as needed 11/10/19 024 Inactive Humulin R U-500 (Concentrated) Insulin 500 unit/mL subcutaneous soln RxNorm: 633085 Inject 100 Unit(s) Subcutaneous TID 10/07/19 024 Inactive Levemir FlexPen 100 unit/mL (3 mL) solution subcutaneous insulin pen RxNorm: 451609 Inject 30 Unit(s) Subcutaneous BID 10/07/19 023 Inactive Ozempic 0.25 mg or 0.5 mg (2 mg/3 mL) subcutaneous pen injector RxNorm: 0760347 Inject 1/2 Milligram(s) Subcutaneous QW once a week 10/07/19 024 Inactive aripiprazole 15 mg tablet RxNorm: 927767 1/2 TAB (7.5MG) ORALLY DAILY (DX:MAJOR DEPRESSIVE DISORDER) 09/23/19 23 023 Inactive Lancets,Thin 28 gauge RxNorm: Use 1 as directed QID 09/15/19 23 024 Inactive Accu-Chek Guide test strips RxNorm: Use 1 Test Strip QID 09/15/19 23 023 Inactive ok to substitute with any covered alternative test strip torsemide 20 mg tablet RxNorm: 537144 Take 1 Tablet(s) Oral BID 09/09/19 024 Inactive d/c once daily dosing carvedilol 25 mg tablet RxNorm: 322339 Take 1 Tablet(s) Oral QD 08/25/19 024 Inactive pregabalin 150 mg capsule RxNorm: 756978 1 Capsule(s) Oral HS at bed time 08/18/19 23 023 Inactive pregabalin 100 mg capsule RxNorm: 412778 1 Capsule(s) Oral QAM every morning 08/18/19 23 023 Inactive carvedilol 25 mg tablet RxNorm: 743786 1 Tablet(s) Oral QD 07/28/19 023 Inactive lisinopril 20 mg tablet RxNorm: 009726 Give 1 Tablet(s) Oral QD 07/28/19 23 023 Inactive Lyrica 150 mg capsule RxNorm: 767778 Take 1 Capsule(s) Oral QHS every night at bedtime 07/19/19 023 Inactive d/c 100mg dose Diflucan 150 mg tablet RxNorm: 188542 Take 1 Tablet(s) Oral QD repeat on day 3 and 6 07/19/19 23 023 Inactive pregabalin 100 mg capsule RxNorm: 831735 Take 1 Capsule(s) Oral QAM every morning 07/19/19 23 023 Inactive gatifloxacin 0.5 % eye drops RxNorm: 606229 Instill 1 Drop(s) as directed TID Instill 1 drop in to affected eye(s) starting 1 day prior to surgery and continue until gone (do not exceed 4 weeks). 07/13/19 23 023 Inactive carvedilol 25 mg tablet RxNorm: 921879 2 Tablet(s) Oral BID 07/13/19 023 Inactive Humulin R Regular U-100 Insulin 100 unit/mL injection solution RxNorm: 302196 85 Unit(s) Injection TID 07/13/19 023 Inactive ketorolac 0.5 % eye drops RxNorm: 253242 Instill 1 Drop(s) as directed QID Instill 1 drop into affected eye(s) 4 times daily starting 1 day prior to surgery and continue until gone (do not exceed 4 weeks). 07/13/19 023 Inactive Diflucan 150 mg tablet RxNorm: 365728 Take 1 Tablet(s) Oral QD repeat on day 3 and 6 06/30/19 23 023 Inactive Accu-Chek Guide test strips RxNorm: Use 1 Test Strip QID Use 1 test strip to monitor blood glucose 4 times daily and as needed. Dx:E11.42. 06/23/19 23 023 Inactive ok to substitute with any covered alternative test strip dextromethorphan-gu aifenesin 10 mg-100 mg/5 mL oral liquid RxNorm: 155693 Take 10 Milliliter(s) Oral every 4 hours as needed for cough 06/19/19 23 023 Inactive dextromethorphan-gu aifenesin 10 mg-100 mg/5 mL oral liquid RxNorm: 416786 Take 10 Milliliter(s) Oral every 4 hours as needed for cough 06/19/19 23 023 Inactive Lyrica 150 mg capsule RxNorm: 010415 Take 1 Capsule(s) Oral QHS every night at bedtime 06/18/19 23 023 Inactive d/c 100mg dose aripiprazole 15 mg tablet RxNorm: 243060 1/2 TAB (7.5MG) ORALLY DAILY (DX:MAJOR DEPRESSIVE DISORDER) 06/05/19 23 023 Inactive pregabalin 100 mg capsule RxNorm: 366335 1 Capsule(s) Oral QAM every morning 06/02/19 023 Inactive Banophen 50 mg capsule RxNorm: 5699145 Take 1 Capsule(s) Oral Q6H every 6 hours as needed 05/19/19 No Stop Date Active Novolog Flexpen U-100 Insulin aspart 100 unit/mL (3 mL) subcutaneous RxNorm: 6493386 Inject 10 Unit(s) Subcutaneous QHS every night at bedtime with nighttime snack 04/08/20 022 Inactive Novolog Flexpen U-100 Insulin aspart 100 unit/mL (3 mL) subcutaneous RxNorm: 4348611 Inject 42 Unit(s) Subcutaneous TID in addition to sliding scale 04/08/20 Inactive d/c 36u albuterol sulfate HFA 90 mcg/actuation aerosol inhaler RxNorm: 6709252 Take 2 Puff(s) Inhalation Q4H every four hours as needed as needed for SOB, cough, or wheezing 04/07/20 030 Active Banophen 50 mg capsule RxNorm: 9276566 Take 1 Capsule(s) Oral Q6H every 6 hours as needed 04/06/20 023 Inactive diphenhydramine 50 mg tablet RxNorm: 2217963 Take 1 Tablet(s) Oral Q6H every 6 hours as needed 04/06/20 022 Inactive diphenhydramine 50 mg tablet RxNorm: 5161552 1 Tablet(s) Oral Q6H every 6 hours as needed 04/06/20 022 Inactive Abilify 15 mg tablet RxNorm: 915557 1/2 Tablet(s) Oral QD 03/10/20 023 Inactive Shingrix (PF) 50 mcg/0.5 mL intramuscular suspension, kit RxNorm: 7824485 Administer 1/2 Milliliter(s) Intramuscular QD one time shingrix step 2 ( step 1 given 11/04/21) WITH needle - Nursing please administer upon arrival and once administered post a bridge message with date of administration, terminal makeup operator, expiration date, and lot# so we can update [facility] 02/18/20 22 022 Inactive dispense with needle Shingrix (PF) 50 mcg/0.5 mL intramuscular suspension, kit RxNorm: 7359296 Administer 1/2 Milliliter(s) Intramuscular QD one time shingrix step 2 ( step 1 given 11/04/21) WITH needle - Nursing please administer upon arrival and once administered post a bridge message with date of administration, terminal makeup operator, expiration date, and lot# so we can update [facility] 02/18/20 22 022 Inactive dispense with needle polyethylene glycol 3350 17 gram/dose oral powder RxNorm: 023652 Take 17=1 capful Gram(s) Oral QD mix with 4-8oz of liquid 01/08/20 22 023 Inactive take this in addition to BID prn order Lyrica 100 mg capsule RxNorm: 539123 Take 1 Capsule(s) Oral QAM every morning 01/08/20 22 022 Inactive d/c 50mg dose acetaminophen 500 mg tablet RxNorm: 952286 Take 1 Tablet(s) Oral TID 01/08/20 22 022 Inactive d/c PRN order Lyrica 150 mg capsule RxNorm: 185382 Take 1 Capsule(s) Oral QHS every night at bedtime 01/08/20 22 023 Inactive d/c 100mg dose Abilify 5 mg tablet RxNorm: 029533 Take 1 Tablet(s) Oral QD take 1 tab po QD #30 refill 5 dx: MDD 12/12/19 22 022 Inactive Abilify 5 mg tablet RxNorm: 900541 Take 1 Tablet(s) Oral QD take 1 tab po QD #30 refill 5 dx: MDD 12/12/19 22 022 Inactive Novolog Flexpen U-100 Insulin aspart 100 unit/mL (3 mL) subcutaneous RxNorm: 8438652 Inject 42 Unit(s) Subcutaneous TID in addition to sliding scale 12/10/19 22 022 Inactive d/c 36u chlorthalidone 25 mg tablet RxNorm: 274597 Take 1 Tablet(s) Oral QAM every morning 12/10/19 22 023 Inactive pregabalin 50 mg capsule RxNorm: 945305 Take 1 Capsule(s) Oral QAM every morning 11/12/19 22 022 Inactive tetanus-diphtheria toxoids-Td 2 Lf unit-2 Lf unit/0.5 mL IM suspension RxNorm: 139 Take 0.5 Miscellaneous Intramuscular 11/12/19 22 022 Inactive need tdap - nursing to administer upon arrival pregabalin 50 mg capsule RxNorm: 502764 Take 1 Capsule(s) Oral QAM every morning 10/16/19 22 022 Inactive pregabalin 50 mg capsule RxNorm: 732987 Take 1 Capsule(s) Oral QAM every morning 10/16/19 22 022 Inactive pregabalin 50 mg capsule RxNorm: 845607 1 Capsule(s) Oral QAM every morning 10/15/19 22 022 Inactive Shingrix (PF) 50 mcg/0.5 mL intramuscular suspension, kit RxNorm: 4238577 Administer 1/2 Milliliter(s) Intramuscular one time Nursing please administer upon arrival and once administered post a bridge message with date of administration, terminal makeup operator, expiration date, and lot# so we can update [facility]. 10/09/19 22 022 Inactive shingrix step 1 Shingrix (PF) 50 mcg/0.5 mL intramuscular suspension, kit RxNorm: 1973533 Administer 1/2 Milliliter(s) Intramuscular one time Nursing please administer upon arrival and once administered post a bridge message with date of administration, terminal makeup operator, expiration date, and lot# so we can update [facility]. 10/09/19 22 022 Inactive shingrix step 1 cholecalciferol (vitamin D3) 1,250 mcg (50,000 unit) capsule RxNorm: 234137 Take 1 Capsule(s) Oral QW once a [...] aspart 100 unit/mL (3 mL) subcutaneous RxNorm: 2643808 Inject 10 Unit(s) Subcutaneous QHS every night at bedtime with nighttime snack 10/08/19 22 Inactive Shingrix (PF) 50 mcg/0.5 mL intramuscular suspension, kit RxNorm: 6551377 ADMINISTER 2-DOSE SERIES PER CDC GUIDELINES 10/08/19 22 Active Shingrix (PF) 50 mcg/0.5 mL intramuscular suspension, kit RxNorm: 4837618 ADMINISTER 2-DOSE SERIES PER CDC GUIDELINES 10/08/19 Inactive Novolog Flexpen U-100 Insulin aspart 100 unit/mL (3 mL) subcutaneous RxNorm: 8640066 Inject 36 Unit(s) Subcutaneous TID in addition to sliding scale 10/08/19 Inactive Novofine Autocover 30 gauge x 1/3 needle RxNorm: Use 1 Miscellaneous UD as directed Use 1 needle as directed to administer insulin 5 times a day Dx:E11.42. 10/03/19 Inactive ok to substitute with any covered alternative pen needle benzoyl peroxide 10 % topical cleanser RxNorm: 796694 Apply 1 Application Topical QD apply to face, wash rinse and dry once daily (may change to QOD if drying) 08/19/19 022 Inactive (%covered by insurance) #60ml refill 11 dx: acne benzoyl peroxide 10 % topical cleanser RxNorm: 912842 Apply 1 Application Topical QD apply to face, wash rinse and dry once daily (may change to QOD if drying) 08/19/19 22 022 Inactive (%covered by insurance) #60ml refill 11 dx: acne benzoyl peroxide 10 % topical cleanser RxNorm: 739848 Apply 1 Application Topical QD apply to face, wash rinse and dry once daily (may change to QOD if drying) 08/19/19 22 022 Inactive (%covered by insurance) #60ml refill 11 dx: acne Lyrica 50 mg capsule RxNorm: 482399 Take 1 Capsule(s) Oral QAM every morning Take 1 capsule by mouth once daily 08/19/19 22 022 Inactive benzoyl peroxide 10 % topical cleanser RxNorm: 599959 Apply 1 Application Topical QD apply to face, wash rinse and dry once daily (may change to QOD if drying) 08/19/19 22 Inactive (%covered by insurance) #60ml refill 11 dx: acne Lyrica 100 mg capsule RxNorm: 397160 Take 1 Capsule(s) Oral QHS every night at bedtime Take 1 capsule by mouth once daily at bedtime 08/19/19 022 Inactive Lyrica 100 mg capsule RxNorm: 893277 Take 1 Capsule(s) Oral QHS every night at bedtime Take 1 capsule by mouth once daily at bedtime 08/16/19 22 Inactive Lyrica 50 mg capsule RxNorm: 821700 Take 1 Capsule(s) Oral QAM every morning Take 1 capsule by mouth once daily 08/16/19 22 Inactive Levemir FlexTouch U-100 Insulin 100 unit/mL (3 mL) subcutaneous pen RxNorm: 019386 Inject 86 Unit(s) Subcutaneous BID 08/05/19 22 022 Inactive d/c 83units BID Lyrica 100 mg capsule RxNorm: 968001 Take 1 Capsule(s) Oral QHS every night at bedtime Take 1 capsule by mouth once daily at bedtime 07/14/19 22 022 Inactive Lyrica 50 mg capsule RxNorm: 428482 Take 1 Capsule(s) Oral QAM every morning Take 1 capsule by mouth once daily 07/14/19 22 022 Inactive Levemir FlexTouch U-100 Insulin 100 unit/mL (3 mL) subcutaneous pen RxNorm: 833912 Inject 83 Unit(s) Subcutaneous BID 07/08/19 22 [...] test strip hydralazine 50 mg tablet RxNorm: 674363 Take 1 Tablet(s) Oral QID 05/05/20 21 022 Inactive venlafaxine ER 225 mg tablet,extended release 24 hr RxNorm: 762752 Take 1 Tablet(s) Oral QD 05/05/20 21 021 Inactive venlafaxine ER 225 mg tablet,extended release 24 hr RxNorm: 947233 Take 1 Tablet(s) Oral QD 05/05/20 21 022 Inactive isosorbide mononitrate ER 30 mg tablet,extended release 24 hr RxNorm: 935953 Take 1 Tablet(s) Oral QD 05/05/20 21 024 Inactive hydralazine 50 mg tablet RxNorm: 558853 Take 1 Tablet(s) Oral QID 05/05/20 21 021 Inactive aspirin 81 mg tablet,delayed release RxNorm: 738099 Take 1 Tablet(s) Oral QD 03/31/20 022 Inactive Vitamin D2 1,250 mcg (50,000 unit) capsule RxNorm: 5138698 Take 1 Capsule(s) Oral QW once a week x 12 weeks 03/31/20 022 Inactive Vitamin D2 1,250 mcg (50,000 unit) capsule RxNorm: 3111834 Take 1 Capsule(s) Oral QW once a week 03/31/20 021 Inactive Zetia 10 mg tablet RxNorm: 839090 Take 1 Tablet(s) Oral QD 03/31/20 024 Inactive Zetia 10 mg tablet RxNorm: 453077 Take 1 Tablet(s) Oral QD 03/31/20 021 Inactive hydralazine 25 mg tablet RxNorm: 625089 Take 1 Tablet(s) Oral QID 03/31/20 21 021 Inactive hydralazine 25 mg tablet RxNorm: 217599 Take 1 Tablet(s) Oral QID 03/31/20 021 Inactive hydralazine 10 mg tablet RxNorm: 117309 Take 1 Tablet(s) Oral QID 03/03/20 021 Inactive cephalexin 500 mg tablet RxNorm: 922442 Take 1 Tablet(s) Oral QID 02/27/20 021 Inactive cephalexin 500 mg tablet RxNorm: 591615 Take 1 Tablet(s) Oral QID 02/27/20 021 Inactive lisinopril 40 mg tablet RxNorm: 739293 Take 1 Tablet(s) Oral QD 02/11/20 21 023 Inactive Eliquis 5 mg tablet RxNorm: 6888979 Take 1 Tablet(s) Oral BID 01/05/20 21 022 Inactive Eliquis 5 mg tablet RxNorm: 5628165 Take 2 Tablet(s) Oral QD 01/01/20 21 021 Inactive Lyrica 50 mg capsule RxNorm: 508650 Take 1 Capsule(s) Oral QAM every morning 12/24/19 21 021 Inactive Lyrica 100 mg capsule RxNorm: 970718 Take 1 Capsule(s) Oral QHS every night at bedtime 12/24/19 21 021 Inactive clotrimazole 1 % topical cream RxNorm: 725226 Apply to right foot and toes Topical BID 12/04/19 21 023 Inactive metoprolol succinate ER 200 mg tablet,extended release 24 hr RxNorm: 403280 Take 1 Tablet(s) Oral QD 12/04/19 21 023 Inactive ciprofloxacin 500 mg tablet RxNorm: 615922 Take 1 Tablet(s) Oral QD 11/30/19 21 021 Inactive DX ofloxacin otic drops Accu-Chek Guide test strips RxNorm: USE 1 TO CHECK GLUCOSE 4 TIMES DAILY AND NEEDED 11/15/19 21 023 Inactive Blood Glucose Test strips RxNorm: Use 1 Test Strip QID at PRN 11/05/19 21 023 Inactive E11.42 lisinopril 30 mg tablet RxNorm: 209784 Take 1 Tablet(s) Oral QD 10/30/19 021 Inactive lisinopril 20 mg tablet RxNorm: 217221 Take 1 Tablet(s) Oral QD 10/23/19 21 021 Inactive lisinopril 20 mg tablet RxNorm: 371525 Take 1 Tablet(s) Oral QD 10/23/19 21 021 Inactive lisinopril 10 mg tablet RxNorm: 495298 Take 1 Tablet(s) Oral QD 10/02/19 21 021 Inactive icosapent ethyl 1 gram capsule RxNorm: 8511490 Take 2 Capsule(s) (2 gm) Oral BID with meals 09/12/19 21 024 Inactive Okay to dispense one 2gm tab if you have that available. icosapent ethyl 1 gram capsule RxNorm: 0837342 Take 2 Capsule(s) Oral BID 09/12/19 21 021 Inactive Okay to dispense one 2gm tab if you have that available. amlodipine 10 mg tablet RxNorm: 786042 Take 1 Tablet(s) Oral QD 09/04/19 022 Inactive aspirin 81 mg tablet,delayed release RxNorm: 481364 Take 1 Tablet(s) Oral QD 09/04/19 Inactive Levemir FlexTouch U-100 Insulin 100 unit/mL (3 mL) subcutaneous pen RxNorm: 840498 Inject 150 Unit(s) Subcutaneous BID 09/04/19 022 Inactive venlafaxine ER 150 mg tablet,extended release 24 hr RxNorm: 432611 Take 1 Tablet(s) Oral QD 09/04/19 21 Inactive clotrimazole-betame thasone 1 %-0.05 % topical cream RxNorm: 653716 Apply to rash on red area on left abdomen/chest Topical BID 08/10/19 Inactive amlodipine 5 mg tablet RxNorm: 657759 Take 1 Tablet(s) Oral QD 07/31/19 Inactive cephalexin 500 mg tablet RxNorm: 341313 Take 1 Tablet(s) Oral BID BID - Twice Daily 07/31/19 Inactive Start 08/01/20 pantoprazole 40 mg tablet,delayed release RxNorm: 844831 Take 1 Tablet(s) Oral QAM every morning 07/08/19 022 Inactive senna 8.6 mg tablet RxNorm: 947037 Take 1 Tablet(s) Oral QD 07/08/19 022 Inactive carbamazepine 200 mg tablet RxNorm: 650790 Take 1 Tablet(s) Oral BID 07/08/19 022 Inactive clopidogrel 75 mg tablet RxNorm: 569881 Take 1 Tablet(s) Oral QD 07/08/19 021 Inactive Blood Glucose Test strips RxNorm: Use 1 Test Strip QID at PRN 07/08/19 21 021 Inactive E11.42 Novolog Flexpen U-100 Insulin aspart 100 unit/mL (3 mL) subcutaneous RxNorm: 0489195 Administer per sliding scale Milliliter(s) Subcutaneous TID 151-200: 10 u; 201-250: 20 u; 251-300: 30 u; 301-350: 40 u; 351-400: 50 u. 07/08/19 022 Inactive lisinopril 5 mg tablet RxNorm: 916166 Take 1 Tablet(s) Oral QD 07/08/19 021 Inactive Novolog Flexpen U-100 Insulin aspart 100 unit/mL (3 mL) subcutaneous RxNorm: 2712403 Inject 85 Unit(s) Subcutaneous TID 07/08/19 022 Inactive pravastatin 80 mg tablet RxNorm: 350649 Take 1 Tablet(s) Oral QHS every night at bedtime 07/08/19 023 Inactive clotrimazole 1 % topical cream RxNorm: 234853 Apply to bilateral groin areas Topical BID 07/08/19 022 Inactive metoprolol succinate ER 200 mg tablet,extended release 24 hr RxNorm: 253879 Take 1 Tablet(s) Oral QD 07/08/19 021 Inactive Vitamin D3 25 mcg (1,000 unit) tablet RxNorm: 168812 Take 1 Tablet(s) Oral QD 07/08/19 021 Inactive isosorbide dinitrate 30 mg tablet RxNorm: 540336 Take 1 Tablet(s) Oral QD 07/08/19 021 Inactive Levemir FlexTouch U-100 Insulin 100 unit/mL (3 mL) subcutaneous pen RxNorm: 659668 Inject 140 Unit(s) Subcutaneous BID 07/08/19 021 Inactive torsemide 20 mg tablet RxNorm: 480779 Take 1 Tablet(s) Oral QD 07/08/19 023 Inactive venlafaxine 75 mg tablet RxNorm: 622749 Take 1 Tablet(s) Oral QD 07/08/19 021 Inactive acetaminophen 500 mg tablet RxNorm: 452060 Take 1 Tablet(s) Oral TID as needed for headache 06/18/19 021 Inactive acetaminophen 500 mg tablet RxNorm: Take 1 Tablet(s) Oral TID as needed for headache 06/18/19 21 021 Inactive Lyrica 100 mg capsule RxNorm: 582423 Take 1 Capsule(s) Oral QHS every night at bedtime 06/11/19 21 021 Inactive Lyrica 50 mg capsule RxNorm: 472936 Take 1 Capsule(s) Oral QAM every morning 06/10/19 21 021 Inactive hydrocortisone 2.5 % topical cream RxNorm: 763397 Apply to bilateral groin creases Topical BID 05/15/20 20 021 Inactive clotrimazole 1 % topical cream RxNorm: 966775 Apply to bilateral groin areas Topical BID 05/15/20 20 021 Inactive Lyrica 50 mg capsule RxNorm: 552960 Take 1 Capsule(s) Oral QAM every morning 05/14/20 20 020 Inactive Lyrica 100 mg capsule RxNorm: 750933 Take 1 Capsule(s) Oral QHS every night [...] Inactive Nystop 100,000 unit/gram topical powder RxNorm: 568195 Apply to abd folds, under breasts and L side of groin Topical BID x 14 days, then BID PRN 04/08/20 20 020 Inactive dx: yeast dermatitis Lyrica 100 mg capsule RxNorm: 473047 Take 1 Capsule(s) Oral QHS every night at bedtime 03/13/20 20 020 Inactive Lyrica 50 mg capsule RxNorm: 672928 Take 1 Capsule(s) Oral QAM every morning 03/13/20 20 Inactive ketoconazole 2 % shampoo RxNorm: 660056 Apply Topical two times a week with showers 03/11/20 20 Inactive cholecalciferol (vitamin D3) 50 mcg (2,000 unit) tablet RxNorm: 717701 Take 1 Tablet(s) Oral QD 03/11/20 20 021 Inactive Zetia 10 mg tablet RxNorm: 050545 Take 1 Tablet(s) Oral QD 03/07/20 20 021 Inactive Zetia 10 mg tablet RxNorm: 524605 Take 1 Tablet(s) Oral QD 03/07/20 20 Inactive Lyrica 50 mg capsule RxNorm: 794556 Take 1 Capsule(s) Oral QAM every morning 02/15/20 20 Inactive Lyrica 100 mg capsule RxNorm: 943913 Take 1 Capsule(s) Oral QHS every night at bedtime 02/15/20 20 Inactive Lyrica 100 mg capsule RxNorm: 298790 Take 1 Capsule(s) Oral QHS every night at bedtime 02/15/20 20 Inactive Lyrica 50 mg capsule RxNorm: 109585 Take 1 Capsule(s) Oral QAM every morning 02/15/20 20 Inactive metoprolol succinate ER 200 mg tablet,extended release 24 hr RxNorm: 453555 Take 1 Tablet(s) Oral QD 08/12/19 23 Active loperamide 2 mg capsule RxNorm: 195650 Take 1 Capsule(s) Oral QID as needed 06/12/19 22 Active hydralazine 50 mg tablet RxNorm: 884774 Take 1 Tablet(s) Oral QID 08/12/19 23 Active venlafaxine ER 75 mg capsule,extended release 24 hr RxNorm: 200674 Take 3 Capsule(s) Oral QD 06/12/19 22 023 Inactive polyethylene glycol 3350 17 gram/dose oral powder RxNorm: 768295 Take 17=1 capful Gram(s) Oral BID as needed mix with 4-8oz of liquid 06/12/19 22 024 Inactive icosapent ethyl 1 gram capsule RxNorm: 4881494 Take 2 Capsule(s) (2 gm) Oral BID with meals 10/07/19 23 023 Inactive Okay to dispense one 2gm tab if you have that available. Levemir FlexTouch U-100 Insulin 100 unit/mL (3 mL) subcutaneous pen RxNorm: 349585 Inject 80 Unit(s) Subcutaneous BID 07/14/19 23 023 Inactive Novolog Flexpen U-100 Insulin aspart 100 unit/mL (3 mL) subcutaneous RxNorm: 4809735 Insert 30 Unit(s) Subcutaneous TID with meals [...] Date Patient Education: Patient Medication Summary Completed 02/02/2024 Appointment: Brian Munson WPtel: [address] [place], [place] [phone] F/U 01/11/2024 Appointment: Sandra Clarktel: [address] [facility] [address] [id number] Telehealth Psych Follow Up 12/09 Appointment: Tapan Shirley WPtel: [address] [facility] 300 [id number] [place] TCM 10/26/2022 Referral: [facility] WPtel: [address], [address] [id number] [place] Referral Records Received 09/21/2022 Appointment: Tapan Shirley WPtel: [address] [facility] 300 [id number] [place] F/U 08/11/2022 Appointment: Tapan Shirley WPtel: [address] [facility] 300 [id number] [place] F/U 07/14/2022 Appointment: Tapan Shirley WPtel: [address] [facility] 300 [id number] [place] F/U 02/10/2022 Referral: [facility] WPtel: [address] [id number] [place] Referral Completed 05/28/2021 Referral: General Cardiology [...] [facility].??Sister Jyotsna involved in his care cell# [phone]??Guardian: Giulia (tapan met in person 09/01/21), now has Lexii (same group as giulia)AWV 02.08.2024.??Lab Schedule: Mar-/September*September (CBC with diff, CMP, A1c)??March: (CBC, CMP, [...] note from 11.08.2023 at [facility] (follow up 6 months)Colon & Rectal Surgery visit scheduled for 03/08/24 with Matilde Pérez PA-C.?? 02/08/2024
--- OUTSIDE RECORDS SUMMARY | 2024-02-19 13:22 | XMS_ITS | Clinical Summary ---
Author Organization [place] Address [address] [place] [address] Care Team Providers Care Zoo Caretaker Name Role Phone Services, [facility] Physician Primary Care Provi sadia Prince Tobar MD Unavailable Prince Tobar MD Unavailable Matilde Pérez PA-C Unavailable [phone] Allergies Active Allergy Reactions Criticality Noted Date [...] daily Active cholecalciferol (VITAMIN D3) 1250 mcg (12620 units) capsule Take 1,250 mcg by mouth every 7 days on Wednesdays. Active venlafaxine (EFFEXOR-XR) 75 MG 24 hr capsule Take 225 mg by mouth daily Active hydrALAZINE (APRESOLINE) 50 MG tablet Take 50 mg by mouth 4 times daily Active polyethylene glycol (MIRALAX) 17 GM/Dose powder Take 17 g by mouth daily Active nystatin (MYCOSTATIN) 809281 UNIT/GM external powder Apply topically 2 times [...] for 7 days 4 g 12/28/2023 Active Active Problems Problem Noted Date Diagnosed Date Elevated troponin 12/16/2022 Chest pain, unspecified type 12/16/2022 Diabetes mellitus, type 2 05/26/2022 Morbid obesity 05/26/2022 Abdominal wall cellulitis 05/17/2021 Sepsis, due to unspecified o rganism, unspecified whether acute organ dysfunction present 05/17/2021 Persistent headaches 03/01/2013 Epilepsy 03/01/2013 Encounters Date Type Department Care Team Description 12/28/2023 6:08 PM CDT - 12/29/2023 12:59 AM CDT Emergency [facility] Emergency Dept [address] [place] [address] Agustin Cesar MD Anal fissure; External hemorrhoids Discharge Disposition: Home or Self Care 12/28/2023 Travel from Last 3 Months Immunizations Name Administration Dates Next Due COVID-19 MONOVALENT 12+ (Pfizer) 06/25/2020,05/17 [id number] Novel Flu 05/07/2009 Hepatitis B, Adult 02/16/2014,10/12/2013, [...] 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 Vital Signs Vital Sign Reading [...] st Contact Info) Description 03/08/2024 PRE VISIT [facility] [address] [place] [address] Matilde Pérez PA-C [address] [place] [address] Previsit 03/08/2024 12:00 PM CDT Office Visit [facility] [address] [place] [address] Reinaldo Beltran PA-C [facility] [address] [place] [phone] Matilde Pérez PA-C [address] [place] [address] Health Maintenance Due Date Last Done Comments [...] 2 - PCV) 01/08/2006 01/08/2005 RSV VACCINE (1 - Risk 60-74 years 1-dose series) 2019 PHQ-2 (once per calendar year) 2023 A1C 01/15/2024 10/15/2023, 08/0 06/2022, 05/17/2021 COVID-19 Vaccine ( season) 2024 06/02/2023, 04/03/2022, 06/18/2021, Additional history exists INFLUENZA VACCINE (#1) 2024 , 04/03/2022, 05/29/2021, [...] CDT INR STAT 12/28/2023 6:41 PM CDT HEMOGLOBIN A1C Routine 10/15/2023 3:13 PM CDT Hypertensive heart disease without heart failure Atherosclerotic heart disease of [place] coronary artery without angina pectoris Body mass index (BMI) 60.0-69.9, adult (H) Chronic kidney disease, unspecified from Last 3 Months or Most Recently Relevant to Health Maintenance Results * (ABNORMAL) CBC with platelets and differential (12/28/2023 6:41 PM CDT) Pathologist [facility] WBC Count 5.9 4.0 - 11.0 10e3/uL [...] MD LAB - BLOOD ORD ERABLES LABORATORY [facility] Acute Care Lab [address] Lab (1st floor, no room number) [place] [address] * Adult Type and Screen (12/28/2023 6:41 PM CDT) ABO/RH(D) A POS 12/28/2023 6:28 PM CDT RH BLOOD BANK Antibody Screen Negative Negative 12/28/2023 6:28 PM CDT RH BLOOD BANK SPECIMEN EXPIRATION DATE [id number] 12/28/2023 6:28 PM CDT RH BLOOD BANK Blood STRUCTURE OF RIGHT UPPER LIMB / Unknown Venipuncture / Unknown 12/28/2023 6:41 PM CDT 12/28/2023 6:46 PM CDT Agustin Cesar MD LAB - BLOOD BAN K TEST ORDER Performing Organization Address [facility]/ZIP Co de Phone Number BLOOD BANK [address] [place] [address] * INR (12/28/2023 6:41 PM CDT) INR 1.01 0.85 - 1.15 12/28/2023 7:00 PM CDT RH LABORATORY Blood STRUCTURE OF RIGHT UPPER LIMB / Unknown Venipuncture / Unknown 12/28/2023 6:41 PM CDT 12/28/2023 6:46 PM CDT Agustin Cesar MD LAB - BLOOD ORD ERABLES RH LABORATORY [facility] Acute Care Lab [address] Lab (1st floor, no room number) [place] [phone] * Partial thromboplastin time (12/28/2023 6:41 PM CDT) aPTT 28 22 - 38 Seconds 12/28/2023 7:00 PM CDT LABORATORY Blood STRUCTURE OF RIGHT UPPER LIMB / Unknown Venipuncture / Unknown 12/28/2023 6:41 PM CDT 12/28/2023 6:46 PM CDT Agustin Cesar MD LAB - BLOOD ORD ERABLES LABORATORY [facility] Acute Care Lab [address] Lab (1st floor, no room number) [place] [phone] * (ABNORMAL) Comprehensive metabolic panel [...] MD LAB - BLOOD ORD ERABLES LABORATORY [facility] Acute Care Lab [address] [facility] Lab (1st floor, no room number) [place] [address], [facility] * (ABNORMAL) Hemoglobin A1c (10/15/2023 3:13 PM CDT) Hemoglobin A1C 10.8(H) <5.7 % 10/15/2023 4:57 PM CDT RH LABORATORY Comment: Normal <5.7% Prediabetes 5.7-6.4% ?? Diabetes 6.5% or higher Note: Adopted from ADA consensus guidelines. 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 Advance Directives and Living Will [...] yissel nt/ legal decision maker Care Teams Zoo Caretaker Relationship Specialty Start Date End Date Services, [place] Physician [address] [place] [address], [address] [address] PCP - General 05/22/21 Prince Tobar MD [address] [place] [phone] Cardiovascular Disease 03/26/22 Prince Tobar MD [address] [place] [address] [phone] Assigned Heart and Vascular Provider 05/30/22 Matilde Pérez PA-C [address] [place] [phone] Physician Certified Alcohol And Drug Counselor Physician Certified Alcohol And Drug Counselor - Surgical 12/30/23
--- OUTSIDE RECORDS SUMMARY | 2024-02-19 13:22 | XMS_ITS | Encounter Summary ---
Author Organization [place] Address [address] [place] [address] Care Team Providers Care [employer] Name Role Phone Services, [facility] Physician Primary Care Provi sadia Prince Tobar MD Unavailable [phone] Prince Tobar MD Unavailable [phone] Reason for Referral * Consultation (Priority: 1-2 Weeks) - Pending Review Specialty Diagnoses / Procedures Referred By Contjohnny dalal Referred To Contact Colon and Rectal Surgery Diagnoses Anal fissure External hemorrhoids Reinaldo Beltran PA-C [facility] [address] [place] [place] [address] Referral ID Status Reason Start Date Expiration Date V isits Requested Visits Authorized [id number] Pending Review 12/28/2023 12/27/2024 1 1 Question Answer Reason for Referral: Anal Fissure Special Concerns: Other My Clinical Question Is: Anal fissure, taking Apixaban Scheduling Instructions: [facility] will call you to coordinate care as prescribed your provider. If you don? t hear from a office services representative within 2 business days, please call . Comments Please be aware that coverage of these services is subject to the terms and limitations of your health insurance plan. Call member services at your health plan with any benefit or coverage questions. [facility] will call you to coordinate care as prescribed your provider. If you don? t hear from a office services representative within 2 business days, please call . 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 The bleeding you noted [...] mouth daily cholecalciferol (VITAMIN D3) 1250 mcg (07461 units) capsule Take 1,250 mcg by mouth [...] 7 days 4 g 12/28/2023 nystatin (MYCOSTATIN) 094151 UNIT/GM external powder Apply topically 2 times [...] MG tablet cholecalciferol (VITAMIN D3) 1250 mcg (47524 units) capsule clotrimazole (LOTRIMIN) 1 % external [...] 200 MG 24 hr tablet nystatin (MYCOSTATIN) 481169 UNIT/GM external powder pantoprazole (PROTONIX) 40 MG [...] POS Antibody Screen Negative SPECIMEN EXPIRATION DATE [id number] ABO/RH TYPE AND SCREEN Emergency Department Course [...] 1. Anal fissure K60.2 Adult Colorectal Surgery Casket Coverer Referral 2. External hemorrhoids K64.4 Adult Colorectal Surgery Casket Coverer Referral Discharge Medications: New Prescriptions HYDROCORTISONE, PERIANAL, [...] yesterday, he went to a clinic in [place], he is unsure of what was done [...] MG tablet cholecalciferol (VITAMIN D3) 1250 mcg (66355 units) capsule clotrimazole (LOTRIMIN) 1 % external [...] 200 MG 24 hr tablet nystatin (MYCOSTATIN) 109451 UNIT/GM external powder pantoprazole (PROTONIX) 40 MG [...] POS Antibody Screen Negative SPECIMEN EXPIRATION DATE [id number] ABO/RH TYPE AND SCREEN Imaging No orders to display Independent Interpretation None ED Course Medications Administered Medications - No data to display Procedures Procedures Discussion of Management Staffed with Dr. Cesar ED Course ED Course as of 12/28/231936Dec 28, 20231838 I evaluated and examined the patient 1902 Rectal exam with RN at bedside Additional Documentation None Medical Decision Making / Diagnosis [facility] Diagnoses: None MIPS None [facility] Leonid Leahy is a 63 year [...] 1. Anal fissure K60.2 Adult Colorectal Surgery Casket Coverer Referral 2. External hemorrhoids K64.4 Adult Colorectal Surgery Casket Coverer Referral Discharge Medications New Prescriptions HYDROCORTISONE, PERIANAL, [...] Pt comes from assisted living facility in [place]. * Tamiko Monzon RN - 12/28/2023 6:08 PM CDT Bed: ED01 Expected date: Expected time: Means of arrival: Comments: [id number] 63Ym documented in this encounter Plan of Treatment Upcoming Encounters Date Type Department Care Team (Late st Contact Info) Description 03/08/2024 PRE VISIT [facility] [address] [address] Matilde Pérez PA-C [address] [place] [address] Previsit 03/08/2024 12:00 PM CDT Office Visit [facility] [address] [phone] Reinaldo Beltran PA-C [facility] [address] [place] [place] [phone] Matilde Pérez PA-C [address] [place] [address] Scheduled Referrals Name Type Priority Associated Diagnoses Orde r Schedule Adult Colorectal Surgery Casket Coverer Referral Referral Priority: 1-2 Weeks Anal fissure [...] CDT RH BLOOD BANK SPECIMEN EXPIRATION DATE [id number] 12/28/2023 6:28 PM CDT RH BLOOD BANK Blood STRUCTURE OF RIGHT UPPER LIMB / Unknown Venipuncture / Unknown 12/28/2023 6:41 PM CDT 12/28/2023 6:46 PM CDT Agustin Cesar MD LAB - BLOOD BAN K TEST ORDER BLOOD [place] [address], [facility] * (ABNORMAL) CBC with platelets and [...] PM CDT 12/28/2023 6:46 PM CDT Agustin eCsar MD LAB - BLOOD ORD ERABLES LABORATORY [facility] Acute Care Lab [address] [facility] Lab (1st floor, no room number) [place] [address], [facility] * (ABNORMAL) Comprehensive metabolic panel [...] MD LAB - BLOOD ORD ERABLES LABORATORY [facility] Acute Care Lab [address] [facility] Lab (1st floor, no room number) [place] [address], [facility] * Partial thromboplastin time (12/28/2023 6:41 PM CDT) aPTT 28 22 - 38 Seconds 12/28/2023 7:00 PM CDT RH LABORATORY Blood STRUCTURE OF RIGHT UPPER LIMB / Unknown Venipuncture / Unknown 12/28/2023 6:41 PM CDT 12/28/2023 6:46 PM CDT Agustin Cesar MD LAB - BLOOD ORD ERABLES [facility] [address] Lab (1st floor, no room number) [place] [address] * INR (12/28/2023 6:41 PM CDT) INR 1.01 0.85 - 1.15 12/28/2023 7:00 PM CDT LABORATORY Blood STRUCTURE OF RIGHT UPPER LIMB / Unknown Venipuncture / Unknown 12/28/2023 6:41 PM CDT 12/28/2023 6:46 PM CDT Agustin Cesar MD LAB - BLOOD ORD ASHISH Performing Organization Address City/[facility]/ZIP Co de Phone Number [facility] [address] Lab (1st floor, no room number) [place] [address] documented in this encounter Visit Diagnoses Diagnosis Anal fissure External hemorrhoids External hemorrhoids without mention of complication documented in this encounter Care Teams [employer] Compliance Internship Relationship Specialty Start Date End Date Services, [facility] Physician [address] [place] [address] PCP - General 05/22/21 Prince Tboar MD [address] [place] [address] Cardiovascular Disease 03/26/22 Prince Tobar MD [address] [place] [address] Assigned Heart and Vascular Provider 05/30/22 documented as of this encounter
--- OUTSIDE RECORDS SUMMARY | 2024-02-19 13:22 | XMS_ITS | Clinical Summary ---
Author Organization [facility] Address [place], [place] [address] Care Team Providers Care Astrobiologist Name Role Phone Alan Lopez MD Unavailable [...] type 2 diabetes mellitus (HC),Chronic edema JOBST #[id number] LRG FULL CALF KNEE BLACK 20-30 COMPRESSION [...] mg extended release tablet 24 HourIndications:CAD in [place] artery Take 1 tablet by mouth once [...] call MD 0 04/01/2020 Active Insulin Safety [place], Disp, (NOVOFINE AUTOCOVER) 30 gauge x /3Indications:Cecelia [...] current use of insulin 06/27/2013 Headache 04/17/2013 Overview (12/15/2013): Has had brain MRI and temporal artery biopsies per patient. Is on amitriptyline. Previous to try higher dose gabapentin but caused significant edema. Currently on Topamax. See neurology consult from November 2013: May increase Topamax to max of 2 mg b.i.d. if needed. Consider melatonin. Edema 02/29/2012 ACP (advance care planning) 07/06/2011 Overview (05/25/2012): 05/24/2012 Patient has identified Health Care Agent(s): [...] at 10 am and no showed. RN Medical Device Sales Consultant, Juanita Yoo, notified and she will attempt [...] No, referral made to Advance Care Plan Document Control Associate. Patient has identified Specific Treatment Preferences: No Sophia Méndez RN .................... 07/06/2011 2:30 PM] Specific limits to treatment preferences NOT identified: ASSUME FULL TREATMENT. Assessment & Plan (05/25/2012 12:51 PM TIN FLOPPER): Advance Care Planning: Disease-specific Session Leonid Leahy is a [facility] patient. His PCP is Leandra Limon at [facility]. Advance care planning discussions were completed with Leonid. He identified his sister, Brittany Suggs, as his healthcare agent. Brittany was not present for ACP session. Understanding of Illness and Disease [place]: Leonid identifies his medical condition as what [...] to live well: Daily visit to local [place] for a pop and to visit and catch up in the news with locals. Leonid obed with serious challenges in his life: Support of his sister, only a phone call away. Helps manage [facility] services. Leonid identifies the following fears [...] and primary care provider. Hard Choices for [place] [employer] booklet was sent to Leonid and his health care agent for review. Leonid requested all information be mailed to his sister and publications writer to place call to sister to explain process. Leonid identified the following concerns during his advance care planning session: needing assistance at home to ensure he is managing his medications and treatments to keep going as is and stabilizing. Is followed by Clinic General Worker for needed services. Questions identified for his primary care provider: none Documents addressed during this advance care planning session: Health Care Directive completed and scanned into medical record. Statement of Treatment Preferences for advanced illness completed and scanned into the medical record. Recommendations/Plan: Leonid to review Advance Care Plan with Leonid's healthcare agent. Coal Yard Supervisor will be contacting Leonid's [facility] to explain services rendered, Leonid would benefit from: Home Care and/or Hospice when / if appropriate. [facility] services involved, [facility] supports coordination of medical asistance. Care Management- kateenlty enrolled in Medical Home. Care Navigation Help Desk- other needed resources. Care Navigation, Hospice Care and Home Care brochure(s) were given to Leonid and/or his healthcare agent. Advance Care Planning recommendations and Leonid's concerns and questions were cc? ed to his primary provider. Interviewer: Khadijah Mcneal RN 05/24/2012 Anemia, unspecified 04/06/2011 Unspecified hereditary and idiopathic peripheral neuropathy 03/02/2011 Overview (03/02/2011): Confirmed on upper extremity EMG Essential hypertriglyceridemia 08/28/2010 Vitamin D deficiency 08/28/2010 Learning disability 08/28/2010 Overview (08/28/2010): Spelling, special education in school Metabolic syndrome 03/17/2009 Morbid obesity with BMI of 60.0-69.9, adult 05/2008 Dysthymia 03/17/2009 Subjective tinnitus 11/09/2008 Sensorineural hearing loss, bilateral 11/09/2008 Insomnia, unspecified 09/11/2008 Unspecified sleep apnea 09/11/2008 Overview (09/11/2008): Has CPAP does not use macchine regularily HTN (hypertension) Overview (07/30/2009): Updated by system to replace inactive record Seizures Hypercholesterolemia Resolved Problems Problem Noted Date Diagnosed Date Resolved Date Type 2 diabetes mellitus wit h neurologic complication 03/29/2015 11/01/2015 CKD (chronic kidney disease) 09/26/2013 04/05/2014 CKD (chronic kidney disease) stage 3, GFR 30-59 ml/min 02/12/2012 03/17/2013 Medical Home 07/06/2011 10/30/2011 Overview (07/06/2011): Sophia Méndez RN .................... 07/06/2011 2:27 PM Sophia Méndez RN RN Clinic General Worker - [facility] [phone] Vitamin D deficiency 01/06/2011 011 Neuropathy 09/25/2010 06/28/2015 Major depressive disorder, r ecurrent episode, unspecified 03/26/2009 06/28/2015 Dysthymic disorder 02/01/2009 6 Overview (2013): Per chart review as of 09/2013: previously on Fluoxetine, tried to augment with wellbutrin but caused itching and concern for increased seizure risk with higher doses do wellbutrin stopped. Then Buspar added. Fluoxetine switched to Lexapro. Patient not feel like Lexapro helping as of 09/2013 so will switch to Effexor and monitor. DIABETES 04/07/2002 03/29/2015 Overview (11/01/2008): Recommended (pre-meal 80-130, 2 hr after eatting < 160, bedtime 100-140) Immunizations Name Administration Dates Next Due Hepatitis [...] 176.9 kg (390 lb) 07/14/2022 6:10 PM TIN FLOPPER Height 167.6 cm (5' 6) 07/14/2022 6:10 PM TIN FLOPPER Body Mass Index 62.95 07/14/2022 6:10 PM TIN FLOPPER Plan of Treatment Health Maintenance Due Date [...] history exists COVID-19 vaccine series ( season) 2024 04/03/2022, 06/18/2021 Influenza for age 50-64 01/16/2024 [...] Kay [employer] Implanted Type Area Industrial Truck Mechanic Device Identifier Shelf Expiration Date Model / Serial / Lot Iol [place] +20 Tecnis Zcb00 - [id number] Implanted:Qty: 1 on 07/15/2022 by Tanner Fuentes MD at [facility] Left: Eye [employer] 06/24/2025 ZCB00 20.0 / [id number] / Iol [place] +20 Tecnis Zcb00 - [id number] Implanted:Qty: 1 on 08/19/2022 by Tanner Fuentes MD at [facility] Right: Eye [employer] 06/24/2025 ZCB00 20.0 / [id number] / Procedures Procedure Name Priority Date/Time Associated Diagnosis Comments LIPID PANEL Routine 03/13/2019 2:31 PM CDT Essential hypertriglyceridemia from Last 3 Months or Most Recently Relevant to Health Maintenance Results * (ABNORMAL) LIPID PANEL (03/13/2019 2:31 PM CDT) [facility] CHOLESTEROL,TOTAL 193 100 - 199 mg/dL 03/13/2019 9:25 PM CDT [facility] TRAL LABORATORY TRIGLYCERIDES 715(H) <150 mg/dL 03/13/2019 9:25 PM CDT [facility] HDL CHOLESTEROL 29(L) >40 mg/dL 9 9:25 PM CDT [facility] TRAL LAB[facility] NON-HDL CHOLESTEROL 164(H) <145 mg/dl 03/13/2019 9:25 PM CDT [facility] TRAL LABOR[facility]ORY CHOL/HDL RATIO 6.66(H) <4.50 03/13/2019 9:25 PM CDT [facility] LDL CHOLESTEROL 9 9:25 PM CDT [facility] TR[facility] Comment:Invalid LDL when Tri g >400. PROVIDER ORDERED STATUS RANDOM 03/13/2019 9:25 PM CDT [facility] TR[facility] Blood BLOOD SPECIMEN / Unknown Venipuncture / Unknown 03/13/2019 2:31 PM CDT 03/13/2019 2:31 PM CDT Suellen Sosa MD CHEMISTRY [facility] [address] [place] [address], from Last 3 Months or Most Recently Relevant to Health Maintenance Advance Directives Documents on File Type Date Recorded Patient Mapping Pilot Eduardo smiley POL 09/26/2014 3:45 PM AH JUAN ERNANDEZ, 09/24/2014 [...] 9:30 PM 03/19/2009 6:17 PM Care Teams Astrobiologist Relationship Specialty Start Date End Date Pcp, No . PCP - General 07/15/22 Alan Lopez MD Internal Medicine Internal Medicine 11/20/10 Nishant Watson MD [address] [place] [address] Endocrinology 08/15/13
--- OUTSIDE RECORDS SUMMARY | 2024-02-19 13:22 | XMS_ITS | Referral Summary ---
Author Organization [facility] Address [address] [place] [address] Care Team Providers Care Deputy General Counsel Name Role Phone Services, [facility] Physician Primary Care Provi sadia Prince Tobar MD Unavailable Prince Tobar MD Unavailable Matilde Pérez PA-C Unavailable [phone] Encounters Date Type Department Care Team Description 12/28/2023 6:08 PM CDT - 12/29/2023 12:[address] [facility] Emergency Dept [address] [place] [address] Agustin Cesar MD Anal fissure; External hemorrhoids [...] daily Active cholecalciferol (VITAMIN D3) 1250 mcg (23044 units) capsule Take 1,250 mcg by mouth every 7 days on Wednesdays. Active venlafaxine (EFFEXOR-XR) 75 MG 24 hr capsule Take 225 mg by mouth daily Active hydrALAZINE (APRESOLINE) 50 MG tablet Take 50 mg by mouth 4 times daily Active polyethylene glycol (MIRALAX) 17 GM/Dose powder Take 17 g by mouth daily Active nystatin (MYCOSTATIN) 072028 UNIT/GM external powder Apply topically 2 times [...] Next Due COVID-19 MONOVALENT 12+ (Pfizer) 06/25/2020,05/17 D1m1-62 Novel Flu 05/07/2009 Hepatitis B, Adult 02/16/2014,10/12/2013, [...] Choose not to disclose 2021 8:14 AM HEAD LINEMAN Last Filed Vital Signs Vital Sign Reading [...] st Contact Info) Description 03/08/2024 PRE VISIT [facility] [address] [place] [address] Matilde Pérez PA-C [address] [place] [address] Previsit 03/08/2024 12:00 PM CDT Office Visit [facility] [address] [place] [address] Reinaldo Beltran PA-C [facility] [address] [place] [phone] Matilde Pérez PA-C [address] [place] [id number] Procedures Procedure Name Priority Date/Time Associated Diagnosis [...] without heart failure Atherosclerotic heart disease of [place] coronary artery without angina pectoris Body mass index (BMI) 60.0-69.9, adult (H) Chronic kidney disease, unspecified from Last 3 Months or Most Recently Relevant to Health Maintenance Results * (ABNORMAL) CBC with platelets and differential (12/28/2023 6:41 PM CDT) [facility] WBC Count 5.9 4.0 - 11.0 10e3/uL [...] LAB - BLOOD ORD ERABLES [facility] LABORATORY [facility] Acute Care Lab [address] Lab (1st floor, no room number) [place] [address] * Adult Type and Screen (12/28/2023 6:41 PM CDT) ABO/RH(D) A POS 12/28/2023 6:28 PM CDT [facility] BLOOD BANK Antibody Screen Negative Negative 12/28/2023 6:28 PM CDT RH BLOOD BANK SPECIMEN EXPIRATION DATE [id number] 12/28/2023 6:28 PM CDT [facility] BLOOD BANK Blood STRUCTURE OF RIGHT UPPER LIMB / Unknown Venipuncture / Unknown 12/28/2023 6:41 PM CDT 12/28/2023 6:46 PM CDT Agustin Cesar MD LAB - BLOOD BAN K TEST ORDER Performing Organization Address City/[facility]/ZIP Co de Phone Number [facility] BLOOD BANK [address] [place] [address] * INR (12/28/2023 6:41 PM CDT) INR 1.01 0.85 - 1.15 12/28/2023 7:00 PM CDT [facility] LABORATORY Blood STRUCTURE OF RIGHT UPPER LIMB / Unknown Venipuncture / Unknown 12/28/2023 6:41 PM CDT 12/28/2023 6:46 PM CDT Agustin Cesar MD LAB - BLOOD ORD ERABLES LABORATORY [facility] Acute Care Lab [address] Lab (1st floor, no room number) [place] [phone] [place] [address] * Partial thromboplastin time (12/28/2023 6:41 PM CDT) aPTT 28 22 - 38 Seconds 12/28/2023 7:00 PM CDT LABORATORY Blood STRUCTURE OF RIGHT UPPER LIMB / Unknown Venipuncture / Unknown 12/28/2023 6:41 PM CDT 12/28/2023 6:46 PM CDT Agustin Cesar MD LAB - BLOOD ORD ERABLES Performing Organization Address [facility]/ZIP Co de Phone Number LABORATORY [facility] Acute Care Lab [address] Lab (1st floor, no room number) [address] * (ABNORMAL) Comprehensive metabolic panel (12/28/2023 [...] MD LAB - BLOOD ORD ERABLES LABORATORY [facility] Acute Care Lab [address] [facility] Lab (1st floor, no room number) [place] [address], [facility] * (ABNORMAL) Hemoglobin A1c (10/15/2023 3:13 PM CDT) Hemoglobin A1C 10.8(H) <5.7 % 10/15/2023 4:57 PM CDT [facility] LABORATORY Comment: Normal <5.7% Prediabetes 5.7-6.4% ?? Diabetes 6.5% or higher Note: Adopted from ADA consensus guidelines. Blood BLOOD SPECIMEN / Unknown Client Draw / Unknown 10/15/2023 3:13 PM CDT 10/15/2023 4:25 PM CDT [facility] LAB - BLOOD ORDERABL ES [facility] Acute Care Lab [address] Lab (1st floor, no room number) [place] [address], [facility] from Last 3 Months or Most Recently Relevant to Health Maintenance Advance Directives For more information, please contact: [phone] Documents on File Type Date Recorded Patient Candle Molder Expl anation Advance Directives and Living Will 06/02/2021 Alternative Resolutions (GUARDIAN) Legal Guardianship 10-18-2013 * Full Code (Latest Code Status on File) Date Activated Date Inactivated Comments 12/16/2022 2:40 PM 12/18/2022 7:20 PM All basic and advanced life-sustaining interventions are performed as appropriate Question Answer Comments Code status determined by: Discussion with yissel musa/ legal decision maker * Full Code Date Activated Date Inactivated Comments 05/18/2021 3:06 AM 06/03/2021 6:27 PM All basic and advanced life-sustaining interventions are performed as appropriate Question Answer Comments Code status determined by: Discussion with patie nt/ legal decision maker Care Teams Deputy General Counsel Relationship Specialty Start Date End Date Services, [facility] Physician [address] [facility], [address] [address] PCP - General 05/22/21 Prince Tobar MD [address] [place] [phone] Cardiovascular Disease 03/26/22 Prince Tobar MD [address] [place] [address] [phone] Assigned Heart and Vascular Provider 05/30/22 Matilde Pérez PA-C [address] [place] [address] Physician Correspondence Renew Clerk Physician Correspondence Renew Clerk - Surgical 12/30/23
--- OUTSIDE RECORDS SUMMARY | 2024-02-19 13:22 | XMS_ITS | Clinical Summary ---
Author Organization [facility] Address [address] [place] [address] Phone Care Team Providers Care Environmental Professional Name Role Phone Mellisa Shirley PA-C Primary Care Provider [phone] Allergies Active Allergy Reactions Criticality Noted Date [...] 05/26/2021 Active cholecalciferol (VITAMIN D-3) 1.25 MG (24741 UT) capsule Take 1,250 mcg by mouth [...] age to complete this topic Care Teams Environmental Professional Relationship Specialty Start Date End Date Mellisa Shirley PA-C PCP - General Physician Laminating Machine Offbearer 08/31/22
--- OUTSIDE RECORDS SUMMARY | 2024-02-19 13:22 | XMS_ITS | CCD ---
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 Hedge Fund Manager Name Role Phone Arpit MCKINLEY-C, [place] Primary Care Provider Leona vailable Arpit BACON SKIN LIFTER-C, [place] Chronic Care Management U navailable Summary Purpose DataExchange Insurance Providers Payer name Policy type / Coverage type Covered green party ID Effective Begin Date Effective End Date [place] [id number] Unknown Unknown Medicaid [place] [id number] Unknown Unknown Family history Sister Brittany Suggs Diagnosis Age At Onset No Family Disease Entered N/A Runs in the family Diagnosis Age At Onset No Known Diseases N/A Sister Blanka Mcduffie Diagnosis Age At Onset No Family Disease Entered N/A Social History Social History Element Codes Description Effec tive Dates Tobacco history SNOMED CT: 652924805 Never smoker 01/16 Sexually Active? Unknown No [...] 10/07/2021 Living arrangements Unknown Shelter 09/03/[address]: 389796507 No Alcohol Consum ption 09/02/2020 Allergies, Adverse Reactions, Alerts Substance Reaction Codes Entered Date Inactivated Date Status * NO KNOWN FOOD ALLERGIES Unknown 07/13/2023 No Inactive Date Active LISINOPRIL RxNorm: 75703 02/12/2020 No Inactive Da te Active Metformin [...] E78. 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 Humulin R U-500 (Concentrated) Insulin 500 unit/mL subcutaneous soln RxNorm: 145773 Inject 100 Unit(s) Subcutaneous TID 02/10/20 24 024 Inactive pregabalin 100 mg capsule RxNorm: 554936 Take 1 Capsule(s) Oral QAM every morning 02/07/20 24 024 Active isosorbide mononitrate ER 60 mg tablet,extended release 24 hr RxNorm: 207054 Take 1 Tablet(s) Oral QD 02/01/20 24 025 Active aripiprazole 15 mg tablet RxNorm: 178163 Take 1/2 Tablet(s) Oral QD 02/01/20 24 025 Active torsemide 20 mg tablet RxNorm: 443056 1 TAB ORALLY DAILY (DX: EDEMA) 01/27/20 No Stop Date Active potassium chloride ER 20 mEq tablet,extended release(part/cryst) RxNorm: 3903231 2 TABS (40MEQ) ORALLY TWICE DAILY (DX: HYPOKALEMIA) 01/27/20 No Stop Date Active cephalexin 500 mg capsule RxNorm: 583239 Take 1 Capsule(s) Oral QID 12/17/19 24 024 Inactive cephalexin 500 mg capsule RxNorm: 109736 Take 1 Capsule(s) Oral QID 12/17/19 24 024 Inactive acetaminophen 500 mg tablet RxNorm: 835741 (MAX APAP:4GM/24HR) Take 1 Tablet(s) Oral TID as needed for pain 12/10/19 24 Active torsemide 20 mg tablet RxNorm: 854263 Take 1 Tablet(s) Oral QD 10/26/19 24 024 Inactive potassium chloride ER 20 mEq tablet,extended release RxNorm: 852041 Take 2 Tablet(s) Oral BID 10/26/19 24 Active torsemide 20 mg tablet RxNorm: 156403 Take 1 Tablet(s) Oral QD 10/26/19 24 024 Inactive potassium chloride ER 20 mEq tablet,extended release RxNorm: 527312 Take 2 Tablet(s) Oral BID 10/26/19 24 024 Inactive Artificial Tears (PF) 0.1 %-0.3 % drops in a dropperette RxNorm: 440673 Apply 1-2 Drop(s) Both eyes BID as needed 09/28/19 24 025 Active erythromycin 5 mg/gram (0.5 %) eye ointment RxNorm: 352824 Apply 1 Application Both eyes QHS every night at bedtime Instill ~1 cm ribbon into affected eye 09/28/19 24 024 Inactive Artificial Tears (PF) 0.1 %-0.3 % drops in a dropperette RxNorm: 462777 Apply 1-2 Drop(s) Both eyes BID as needed 09/28/19 24 Inactive erythromycin 5 mg/gram (0.5 %) eye ointment RxNorm: 480354 Apply 1 Application Both eyes QHS every night at bedtime Instill ~1 cm ribbon into affected eye 09/28/19 24 Inactive acetaminophen 500 mg tablet RxNorm: 360666 (MAX APAP:4GM/24HR) Take 1 Tablet(s) Oral TID as needed for pain 09/24/19 24 Inactive carvedilol 25 mg tablet RxNorm: 162226 Take 1 Tablet(s) Oral QD 09/08/19 24 No Stop Date Active pregabalin 100 mg capsule RxNorm: 122340 Take 1 Capsule(s) Oral QAM every morning 09/07/19 24 Inactive rosuvastatin 40 mg tablet RxNorm: 258624 Take 1 Tablet(s) Oral QPM every evening 07/13/19 24 No Stop Date Active ezetimibe 10 mg tablet RxNorm: 092015 Take 1 Tablet(s) Oral QD 07/13/19 24 No Stop Date Active bisacodyl 10 mg rectal suppository RxNorm: 918393 Insert 1 Suppository Rectal QD as needed 07/13/19 24 No Stop Date Active polyethylene glycol 3350 17 gram/dose oral powder RxNorm: 463328 Take 17 Gram(s) Oral BID as needed mix in 4-8ox water 07/13/19 24 No Stop Date Active ketoconazole 2 % shampoo RxNorm: 216603 Apply 1 Application Topical UD as directed 07/13/19 24 No Stop Date Active Ozempic 1 mg/dose (4 mg/3 mL) subcutaneous pen injector RxNorm: 6134700 Inject 1 Milligram(s) Subcutaneous QW once a week 07/13/19 24 No Stop Date Active Guaifenesin AC 10 mg-100 mg/5 mL oral liquid RxNorm: 266911 Take 10 Milliliter(s) Oral Q4H every four hours as needed 07/13/19 24 No Stop Date Active ammonium lactate 12 % topical cream RxNorm: 499015 Apply 1 Application Topical BID 07/13/19 24 No Stop Date Active hydrocortisone 2.5 % topical cream RxNorm: 888391 Apply 1 Application Topical BID as needed 07/13/19 24 No Stop Date Active rosuvastatin 20 mg sprinkle capsule RxNorm: 9313160 Take 1 Capsule(s) Oral QD 07/13/19 24 No Stop Date Active Vascepa 1 gram capsule RxNorm: 0627232 Take 2 Capsule(s) Oral BID 07/13/19 24 No Stop Date Active venlafaxine ER 75 mg capsule,extended release 24 hr RxNorm: 778553 Take 3 Capsule(s) Oral QD 07/13/19 24 No Stop Date Active aripiprazole 15 mg tablet RxNorm: 529734 Take 1/2 Tablet(s) Oral QD 07/13/19 24 024 Inactive isosorbide mononitrate ER 60 mg tablet,extended release 24 hr RxNorm: 944506 Take 1 Tablet(s) Oral QD 07/13/19 24 024 Inactive Basaglar KwikPen U-100 Insulin 100 unit/mL (3 mL) subcutaneous RxNorm: 1109336 Inject 30U SubQ twice daily 07/07/19 24 024 Inactive Please dispense one month supply. Basaglar KwikPen U-100 Insulin 100 unit/mL (3 mL) subcutaneous RxNorm: 1600280 Inject 30U SubQ twice daily 07/07/19 24 024 Inactive Please dispense one month supply. pregabalin 150 mg capsule RxNorm: 141795 Take 1 Capsule(s) Oral QHS every night at bedtime 07/05/19 24 024 Inactive pregabalin 150 mg capsule RxNorm: 848430 Take 1 Capsule(s) Oral QHS every night at bedtime 07/05/19 24 024 Inactive polyethylene glycol 3350 17 gram/dose oral powder RxNorm: 918175 Take 1 Packet Oral QD as needed (1 packet = 17g) mix with 4-8oz of liquid 06/15/19 24 024 Inactive bisacodyl 10 mg rectal suppository RxNorm: 748195 Insert one suppository per rectum once daily as needed for constipation 06/15/19 24 024 Inactive bisacodyl 10 mg rectal suppository RxNorm: 370898 Insert one suppository per rectum once daily as needed for constipation 06/15/19 24 024 Inactive pregabalin 100 mg capsule RxNorm: 432143 Take 1 Capsule(s) Oral QAM every morning 04/27/20 024 Inactive Levemir FlexPen 100 unit/mL (3 mL) solution subcutaneous insulin pen RxNorm: 263672 Inject 30 Unit(s) Subcutaneous BID 04/27/20 024 Inactive rosuvastatin 40 mg tablet RxNorm: 517394 Take 1 Tablet(s) Oral QPM every evening 04/16/20 024 Inactive D/C rosuvastatin 20mg venlafaxine ER 75 mg capsule,extended release 24 hr RxNorm: 729528 Take 3 Capsule(s) Oral QD 04/14/20 023 Inactive pregabalin 100 mg capsule RxNorm: 624978 Take 1 Capsule(s) Oral QAM every morning [...] meter clotrimazole 1 % topical cream RxNorm: 644991 Take apply topically to abdominal folds twice daily for 14 days 03/12/20 024 Inactive Ozempic 1 mg/dose (4 mg/3 mL) subcutaneous pen injector RxNorm: 2458549 Inject 1 Milligram(s) Subcutaneous QW once a week 03/11/20 023 Inactive rosuvastatin 20 mg tablet RxNorm: 922080 Take 1 Tablet(s) Oral QD 02/26/20 023 Inactive d/c pravastatin 80mg Ozempic 1 mg/dose (4 mg/3 mL) subcutaneous pen injector RxNorm: 5876697 Inject 1 Milligram(s) Subcutaneous QW once a week 02/20/20 23 023 Inactive pregabalin 150 mg capsule RxNorm: 997970 Take 1 Capsule(s) Oral HS at bed time 02/19/20 23 023 Inactive pregabalin 100 mg capsule RxNorm: 288542 Take 1 Capsule(s) Oral QAM every morning 02/18/20 23 023 Inactive venlafaxine ER 75 mg capsule,extended release 24 hr RxNorm: 196611 Take 3 Capsule(s) Oral QD 02/04/20 23 023 Inactive FreeStyle Chema 2 Sensor kit RxNorm: use as directed 02/04/20 23 023 Inactive FreeStyle Chema 2 Sensor kit RxNorm: use as directed 02/04/20 024 Inactive fluconazole 150 mg tablet RxNorm: 169483 Take 1 Tablet(s) Oral on day 3 and on day 6 02/03/20 024 Inactive chlorthalidone 25 mg tablet RxNorm: 970202 Take 1 Tablet(s) Oral QAM every morning 02/03/20 23 No Stop Date Active venlafaxine ER 150 mg capsule,extended release 24 hr RxNorm: 891851 Take 1 Capsule(s) Oral QD 02/03/20 23 023 Inactive acetaminophen 500 mg tablet RxNorm: 306951 1 TABLET ORALLY 3 TIMES DAILY (MAX APAP:4GM/24HR) 12/15/19 23 023 Inactive clotrimazole 1 % topical cream RxNorm: 143827 apply 1g topically to top of feet and in between toes BID 12/09/19 23 023 Inactive potassium chloride ER 20 mEq tablet,extended release RxNorm: 474561 Take 1 Tablet(s) Oral BID 12/09/19 23 024 Inactive d/c 20mEq once daily (sent from hospital) nystatin 100,000 unit/gram topical powder RxNorm: 533763 APPLY TO AFFECTED AREAS TOPICALLY 2 TIMES DAILY 11/21/19 23 024 Inactive Nystop 100,000 unit/gram topical powder RxNorm: 802064 Apply to abd folds, under breasts and L side of groin Topical BID x 14 days, then BID PRN 11/20/19 23 023 Inactive dx: yeast dermatitis [place] Ultra Strength 4 %-30 %-10 % topical cream RxNorm: 531842 Apply 1 Gram(s) Topical QID PRN to feet and legs for neuropathic pain 11/11/19 024 Inactive clotrimazole 1 % topical cream RxNorm: 020068 Apply 1/2 Gram(s) Topical BID Apply to affected areas of groin, periarea, and abdominal topically 2 times daily 11/10/19 23 023 Inactive hydrocortisone 2.5 % topical cream RxNorm: 716107 Apply 1/2 Gram(s) Topical BID as needed 11/10/19 024 Inactive Levemir FlexPen 100 unit/mL (3 mL) solution subcutaneous insulin pen RxNorm: 225963 Inject 30 Unit(s) Subcutaneous BID 10/07/19 023 Inactive Humulin R U-500 (Concentrated) Insulin 500 unit/mL subcutaneous soln RxNorm: 162616 Inject 100 Unit(s) Subcutaneous TID 10/07/19 024 Inactive Ozempic 0.25 mg or 0.5 mg (2 mg/3 mL) subcutaneous pen injector RxNorm: 5202453 Inject 1/2 Milligram(s) Subcutaneous QW once a week 10/07/19 024 Inactive aripiprazole 15 mg tablet RxNorm: 047745 1/2 TAB (7.5MG) ORALLY DAILY (DX:MAJOR DEPRESSIVE DISORDER) 09/23/19 023 Inactive Lancets,Thin 28 gauge RxNorm: Use 1 as directed QID 09/15/19 23 024 Inactive Accu-Chek Guide test strips RxNorm: Use 1 Test Strip QID 09/15/19 23 023 Inactive ok to substitute with any covered alternative test strip torsemide 20 mg tablet RxNorm: 584367 Take 1 Tablet(s) Oral BID 09/09/19 23 024 Inactive d/c once daily dosing carvedilol 25 mg tablet RxNorm: 862911 Take 1 Tablet(s) Oral QD 08/25/19 23 024 Inactive pregabalin 150 mg capsule RxNorm: 376194 1 Capsule(s) Oral HS at bed time 08/18/19 23 023 Inactive pregabalin 100 mg capsule RxNorm: 131606 1 Capsule(s) Oral QAM every morning 08/18/19 23 023 Inactive carvedilol 25 mg tablet RxNorm: 472177 1 Tablet(s) Oral QD 07/28/19 23 023 Inactive lisinopril 20 mg tablet RxNorm: 920250 Give 1 Tablet(s) Oral QD 07/28/19 23 023 Inactive Lyrica 150 mg capsule RxNorm: 688617 Take 1 Capsule(s) Oral QHS every night at bedtime 07/19/19 023 Inactive d/c 100mg dose Diflucan 150 mg tablet RxNorm: 998931 Take 1 Tablet(s) Oral QD repeat on day 3 and 6 07/19/19 23 023 Inactive pregabalin 100 mg capsule RxNorm: 211876 Take 1 Capsule(s) Oral QAM every morning 07/19/19 23 023 Inactive gatifloxacin 0.5 % eye drops RxNorm: 728255 Instill 1 Drop(s) as directed TID Instill 1 drop in to affected eye(s) starting 1 day prior to surgery and continue until gone (do not exceed 4 weeks). 07/13/19 23 023 Inactive carvedilol 25 mg tablet RxNorm: 942912 2 Tablet(s) Oral BID 07/13/19 23 023 Inactive Humulin R Regular U-100 Insulin 100 unit/mL injection solution RxNorm: 487011 85 Unit(s) Injection TID 07/13/19 23 023 Inactive ketorolac 0.5 % eye drops RxNorm: 662811 Instill 1 Drop(s) as directed QID Instill 1 drop into affected eye(s) 4 times daily starting 1 day prior to surgery and continue until gone (do not exceed 4 weeks). 07/13/19 23 023 Inactive Diflucan 150 mg tablet RxNorm: 131274 Take 1 Tablet(s) Oral QD repeat on day 3 and 6 06/30/19 23 023 Inactive Accu-Chek Guide test strips RxNorm: Use 1 Test Strip QID Use 1 test strip to monitor blood glucose 4 times daily and as needed. Dx:E11.42. 06/23/19 023 Inactive ok to substitute with any covered alternative test strip dextromethorphan-gu aifenesin 10 mg-100 mg/5 mL oral liquid RxNorm: 436103 Take 10 Milliliter(s) Oral every 4 hours as needed for cough 06/19/19 023 Inactive dextromethorphan-gu aifenesin 10 mg-100 mg/5 mL oral liquid RxNorm: 712827 Take 10 Milliliter(s) Oral every 4 hours as needed for cough 06/19/19 023 Inactive Lyrica 150 mg capsule RxNorm: 847142 Take 1 Capsule(s) Oral QHS every night at bedtime 06/18/19 023 Inactive d/c 100mg dose aripiprazole 15 mg tablet RxNorm: 077452 1/2 TAB (7.5MG) ORALLY DAILY (DX:MAJOR DEPRESSIVE DISORDER) 06/05/19 023 Inactive pregabalin 100 mg capsule RxNorm: 496349 1 Capsule(s) Oral QAM every morning 06/02/19 023 Inactive Banophen 50 mg capsule RxNorm: 4749379 Take 1 Capsule(s) Oral Q6H every 6 hours as needed 05/19/19 23 No Stop Date Active Novolog Flexpen U-100 Insulin aspart 100 unit/mL (3 mL) subcutaneous RxNorm: 0131298 Inject 10 Unit(s) Subcutaneous QHS every night at bedtime with nighttime snack 04/08/20 22 022 Inactive Novolog Flexpen U-100 Insulin aspart 100 unit/mL (3 mL) subcutaneous RxNorm: 8315045 Inject 42 Unit(s) Subcutaneous TID in addition to sliding scale 04/08/20 22 022 Inactive d/c 36u albuterol sulfate HFA 90 mcg/actuation aerosol inhaler RxNorm: 9638465 Take 2 Puff(s) Inhalation Q4H every four hours as needed as needed for SOB, cough, or wheezing 04/07/20 030 Active Banophen 50 mg capsule RxNorm: 6470532 Take 1 Capsule(s) Oral Q6H every 6 hours as needed 04/06/20 023 Inactive diphenhydramine 50 mg tablet RxNorm: 6625675 Take 1 Tablet(s) Oral Q6H every 6 hours as needed 04/06/20 022 Inactive diphenhydramine 50 mg tablet RxNorm: 3565818 1 Tablet(s) Oral Q6H every 6 hours as needed 04/06/20 022 Inactive Abilify 15 mg tablet RxNorm: 394475 1/2 Tablet(s) Oral QD 03/10/20 023 Inactive Shingrix (PF) 50 mcg/0.5 mL intramuscular suspension, kit RxNorm: 5477383 Administer 1/2 Milliliter(s) Intramuscular QD one time shingrix step 2 ( step 1 given 11/04/21) WITH needle - Nursing please administer upon arrival and once administered post a bridge message with date of administration, shift stacker, expiration date, and lot# so we can update [facility] 02/18/20 22 022 Inactive dispense with needle Shingrix (PF) 50 mcg/0.5 mL intramuscular suspension, kit RxNorm: 7831371 Administer 1/2 Milliliter(s) Intramuscular QD one time shingrix step 2 ( step 1 given 11/04/21) WITH needle - Nursing please administer upon arrival and once administered post a bridge message with date of administration, shift stacker, expiration date, and lot# so we can update [facility] 02/18/20 22 022 Inactive dispense with needle polyethylene glycol 3350 17 gram/dose oral powder RxNorm: 276102 Take 17=1 capful Gram(s) Oral QD mix with 4-8oz of liquid 01/08/20 22 023 Inactive take this in addition to BID prn order Lyrica 100 mg capsule RxNorm: 557064 Take 1 Capsule(s) Oral QAM every morning 01/08/20 22 022 Inactive d/c 50mg dose acetaminophen 500 mg tablet RxNorm: 614393 Take 1 Tablet(s) Oral TID 01/08/20 22 022 Inactive d/c PRN order Lyrica 150 mg capsule RxNorm: 414792 Take 1 Capsule(s) Oral QHS every night at bedtime 01/08/20 22 023 Inactive d/c 100mg dose Abilify 5 mg tablet RxNorm: 159524 Take 1 Tablet(s) Oral QD take 1 tab po QD #30 refill 5 dx: MDD 12/12/19 22 022 Inactive Abilify 5 mg tablet RxNorm: 378253 Take 1 Tablet(s) Oral QD take 1 tab po QD #30 refill 5 dx: MDD 12/12/19 22 022 Inactive Novolog Flexpen U-100 Insulin aspart 100 unit/mL (3 mL) subcutaneous RxNorm: 1998582 Inject 42 Unit(s) Subcutaneous TID in addition to sliding scale 12/10/19 22 022 Inactive d/c 36u chlorthalidone 25 mg tablet RxNorm: 951903 Take 1 Tablet(s) Oral QAM every morning 12/10/19 22 023 Inactive pregabalin 50 mg capsule RxNorm: 183147 Take 1 Capsule(s) Oral QAM every morning 11/12/19 22 022 Inactive tetanus-diphtheria toxoids-Td 2 Lf unit-2 Lf unit/0.5 mL IM suspension RxNorm: 139 Take 0.5 Miscellaneous Intramuscular 11/12/19 22 022 Inactive need tdap - nursing to administer upon arrival pregabalin 50 mg capsule RxNorm: 794427 Take 1 Capsule(s) Oral QAM every morning 10/16/19 22 022 Inactive pregabalin 50 mg capsule RxNorm: 431336 Take 1 Capsule(s) Oral QAM every morning 10/16/19 22 022 Inactive pregabalin 50 mg capsule RxNorm: 993363 1 Capsule(s) Oral QAM every morning 10/15/19 22 022 Inactive Shingrix (PF) 50 mcg/0.5 mL intramuscular suspension, kit RxNorm: 3505405 Administer 1/2 Milliliter(s) Intramuscular one time Nursing please administer upon arrival and once administered post a bridge message with date of administration, shift stacker, expiration date, and lot# so we can update [facility]. 10/09/19 22 022 Inactive shingrix step 1 Shingrix (PF) 50 mcg/0.5 mL intramuscular suspension, kit RxNorm: 9198280 Administer 1/2 Milliliter(s) Intramuscular one time Nursing please administer upon arrival and once administered post a bridge message with date of administration, shift stacker, expiration date, and lot# so we can update [facility]. 10/09/19 22 022 Inactive shingrix step 1 cholecalciferol (vitamin D3) 1,250 mcg (50,000 unit) capsule RxNorm: 809877 Take 1 Capsule(s) Oral QW once a [...] aspart 100 unit/mL (3 mL) subcutaneous RxNorm: 7376624 Inject 10 Unit(s) Subcutaneous QHS every night at bedtime with nighttime snack 10/08/19 22 Inactive Shingrix (PF) 50 mcg/0.5 mL intramuscular suspension, kit RxNorm: 4248146 ADMINISTER 2-DOSE SERIES PER CDC GUIDELINES 10/08/19 22 022 Active Shingrix (PF) 50 mcg/0.5 mL intramuscular suspension, kit RxNorm: 1502271 ADMINISTER 2-DOSE SERIES PER CDC GUIDELINES 10/08/19 22 Inactive Novolog Flexpen U-100 Insulin aspart 100 unit/mL (3 mL) subcutaneous RxNorm: 1575057 Inject 36 Unit(s) Subcutaneous TID in addition to sliding scale 10/08/19 022 Inactive Novofine Autocover 30 gauge x 1/3 needle RxNorm: Use 1 Miscellaneous UD as directed Use 1 needle as directed to administer insulin 5 times a day Dx:E11.42. 10/03/19 Inactive ok to substitute with any covered alternative pen needle benzoyl peroxide 10 % topical cleanser RxNorm: 985089 Apply 1 Application Topical QD apply to face, wash rinse and dry once daily (may change to QOD if drying) 08/19/19 022 Inactive (%covered by insurance) #60ml refill 11 dx: acne benzoyl peroxide 10 % topical cleanser RxNorm: 530788 Apply 1 Application Topical QD apply to face, wash rinse and dry once daily (may change to QOD if drying) 08/19/19 022 Inactive (%covered by insurance) #60ml refill 11 dx: acne benzoyl peroxide 10 % topical cleanser RxNorm: 720514 Apply 1 Application Topical QD apply to face, wash rinse and dry once daily (may change to QOD if drying) 08/19/19 022 Inactive (%covered by insurance) #60ml refill 11 dx: acne Lyrica 50 mg capsule RxNorm: 634702 Take 1 Capsule(s) Oral QAM every morning Take 1 capsule by mouth once daily 08/19/19 022 Inactive benzoyl peroxide 10 % topical cleanser RxNorm: 709112 Apply 1 Application Topical QD apply to face, wash rinse and dry once daily (may change to QOD if drying) 08/19/19 022 Inactive (%covered by insurance) #60ml refill 11 dx: acne Lyrica 100 mg capsule RxNorm: 439390 Take 1 Capsule(s) Oral QHS every night at bedtime Take 1 capsule by mouth once daily at bedtime 08/19/19 22 022 Inactive Lyrica 100 mg capsule RxNorm: 845213 Take 1 Capsule(s) Oral QHS every night at bedtime Take 1 capsule by mouth once daily at bedtime 08/16/19 22 022 Inactive Lyrica 50 mg capsule RxNorm: 981835 Take 1 Capsule(s) Oral QAM every morning Take 1 capsule by mouth once daily 08/16/19 22 022 Inactive Levemir FlexTouch U-100 Insulin 100 unit/mL (3 mL) subcutaneous pen RxNorm: 640749 Inject 86 Unit(s) Subcutaneous BID 08/05/19 22 022 Inactive d/c 83units BID Lyrica 100 mg capsule RxNorm: 367027 Take 1 Capsule(s) Oral QHS every night at bedtime Take 1 capsule by mouth once daily at bedtime 07/14/19 22 022 Inactive Lyrica 50 mg capsule RxNorm: 419432 Take 1 Capsule(s) Oral QAM every morning Take 1 capsule by mouth once daily 07/14/19 22 022 Inactive Levemir FlexTouch U-100 Insulin 100 unit/mL (3 mL) subcutaneous pen RxNorm: 179928 Inject 83 Unit(s) Subcutaneous BID 07/08/19 22 [...] test strip hydralazine 50 mg tablet RxNorm: 628008 Take 1 Tablet(s) Oral QID 05/05/20 21 022 Inactive venlafaxine ER 225 mg tablet,extended release 24 hr RxNorm: 153353 Take 1 Tablet(s) Oral QD 05/05/20 21 021 Inactive venlafaxine ER 225 mg tablet,extended release 24 hr RxNorm: 035342 Take 1 Tablet(s) Oral QD 05/05/20 022 Inactive isosorbide mononitrate ER 30 mg tablet,extended release 24 hr RxNorm: 209251 Take 1 Tablet(s) Oral QD 05/05/20 024 Inactive hydralazine 50 mg tablet RxNorm: 909266 Take 1 Tablet(s) Oral QID 05/05/20 21 Inactive aspirin 81 mg tablet,delayed release RxNorm: 860297 Take 1 Tablet(s) Oral QD 03/31/20 022 Inactive Vitamin D2 1,250 mcg (50,000 unit) capsule RxNorm: 2305764 Take 1 Capsule(s) Oral QW once a week x 12 weeks 03/31/20 022 Inactive Vitamin D2 1,250 mcg (50,000 unit) capsule RxNorm: 9316570 Take 1 Capsule(s) Oral QW once a week 03/31/20 021 Inactive Zetia 10 mg tablet RxNorm: 944651 Take 1 Tablet(s) Oral QD 03/31/20 21 024 Inactive Zetia 10 mg tablet RxNorm: 620198 Take 1 Tablet(s) Oral QD 03/31/20 21 021 Inactive hydralazine 25 mg tablet RxNorm: 659445 Take 1 Tablet(s) Oral QID 03/31/20 021 Inactive hydralazine 25 mg tablet RxNorm: 393005 Take 1 Tablet(s) Oral QID 03/31/20 021 Inactive hydralazine 10 mg tablet RxNorm: 909944 Take 1 Tablet(s) Oral QID 03/03/20 021 Inactive cephalexin 500 mg tablet RxNorm: 847586 Take 1 Tablet(s) Oral QID 02/27/20 021 Inactive cephalexin 500 mg tablet RxNorm: 628068 Take 1 Tablet(s) Oral QID 02/27/20 021 Inactive lisinopril 40 mg tablet RxNorm: 607611 Take 1 Tablet(s) Oral QD 02/11/20 023 Inactive Eliquis 5 mg tablet RxNorm: 8613852 Take 1 Tablet(s) Oral BID 01/05/20 022 Inactive Eliquis 5 mg tablet RxNorm: 4430205 Take 2 Tablet(s) Oral QD 01/01/20 21 021 Inactive Lyrica 50 mg capsule RxNorm: 462214 Take 1 Capsule(s) Oral QAM every morning 12/24/19 21 021 Inactive Lyrica 100 mg capsule RxNorm: 201642 Take 1 Capsule(s) Oral QHS every night at bedtime 12/24/19 021 Inactive clotrimazole 1 % topical cream RxNorm: 712651 Apply to right foot and toes Topical BID 12/04/19 21 023 Inactive metoprolol succinate ER 200 mg tablet,extended release 24 hr RxNorm: 585132 Take 1 Tablet(s) Oral QD 12/04/19 21 023 Inactive ciprofloxacin 500 mg tablet RxNorm: 435608 Take 1 Tablet(s) Oral QD 11/30/19 21 021 Inactive DX ofloxacin otic drops Accu-Chek Guide test strips RxNorm: USE 1 TO CHECK GLUCOSE 4 TIMES DAILY AND NEEDED 11/15/19 21 023 Inactive Blood Glucose Test strips RxNorm: Use 1 Test Strip QID at PRN 11/05/19 21 023 Inactive E11.42 lisinopril 30 mg tablet RxNorm: 040076 Take 1 Tablet(s) Oral QD 10/30/19 21 021 Inactive lisinopril 20 mg tablet RxNorm: 007553 Take 1 Tablet(s) Oral QD 10/23/19 21 021 Inactive lisinopril 20 mg tablet RxNorm: 393420 Take 1 Tablet(s) Oral QD 10/23/19 21 021 Inactive lisinopril 10 mg tablet RxNorm: 526611 Take 1 Tablet(s) Oral QD 10/02/19 021 Inactive icosapent ethyl 1 gram capsule RxNorm: 0520845 Take 2 Capsule(s) (2 gm) Oral BID with meals 09/12/19 21 024 Inactive Okay to dispense one 2gm tab if you have that available. icosapent ethyl 1 gram capsule RxNorm: 5589329 Take 2 Capsule(s) Oral BID 09/12/19 21 021 Inactive Okay to dispense one 2gm tab if you have that available. amlodipine 10 mg tablet RxNorm: 171758 Take 1 Tablet(s) Oral QD 09/04/19 21 022 Inactive aspirin 81 mg tablet,delayed release RxNorm: 260926 Take 1 Tablet(s) Oral QD 09/04/19 21 021 Inactive Levemir FlexTouch U-100 Insulin 100 unit/mL (3 mL) subcutaneous pen RxNorm: 572017 Inject 150 Unit(s) Subcutaneous BID 09/04/19 21 022 Inactive venlafaxine ER 150 mg tablet,extended release 24 hr RxNorm: 414693 Take 1 Tablet(s) Oral QD 09/04/19 21 021 Inactive clotrimazole-betame thasone 1 %-0.05 % topical cream RxNorm: 651962 Apply to rash on red area on left abdomen/chest Topical BID 08/10/19 21 021 Inactive amlodipine 5 mg tablet RxNorm: 180325 Take 1 Tablet(s) Oral QD 07/31/19 21 021 Inactive cephalexin 500 mg tablet RxNorm: 094888 Take 1 Tablet(s) Oral BID BID - Twice Daily 07/31/19 21 021 Inactive Start 08/01/20 pantoprazole 40 mg tablet,delayed release RxNorm: 115858 Take 1 Tablet(s) Oral QAM every morning 07/08/19 022 Inactive senna 8.6 mg tablet RxNorm: 355526 Take 1 Tablet(s) Oral QD 07/08/19 022 Inactive carbamazepine 200 mg tablet RxNorm: 445870 Take 1 Tablet(s) Oral BID 07/08/19 Inactive clopidogrel 75 mg tablet RxNorm: 638372 Take 1 Tablet(s) Oral QD 07/08/19 021 Inactive Blood Glucose Test strips RxNorm: Use 1 Test Strip QID at PRN 07/08/19 Inactive E11.42 Novolog Flexpen U-100 Insulin aspart 100 unit/mL (3 mL) subcutaneous RxNorm: 3816868 Administer per sliding scale Milliliter(s) Subcutaneous TID 151-200: 10 u; 201-250: 20 u; 251-300: 30 u; 301-350: 40 u; 351-400: 50 u. 07/08/19 Inactive lisinopril 5 mg tablet RxNorm: 078557 Take 1 Tablet(s) Oral QD 07/08/19 021 Inactive Novolog Flexpen U-100 Insulin aspart 100 unit/mL (3 mL) subcutaneous RxNorm: 3415268 Inject 85 Unit(s) Subcutaneous TID 07/08/19 022 Inactive pravastatin 80 mg tablet RxNorm: 133118 Take 1 Tablet(s) Oral QHS every night at bedtime 07/08/19 023 Inactive clotrimazole 1 % topical cream RxNorm: 492913 Apply to bilateral groin areas Topical BID 07/08/19 022 Inactive metoprolol succinate ER 200 mg tablet,extended release 24 hr RxNorm: 814339 Take 1 Tablet(s) Oral QD 07/08/19 21 021 Inactive Vitamin D3 25 mcg (1,000 unit) tablet RxNorm: 602885 Take 1 Tablet(s) Oral QD 07/08/19 021 Inactive isosorbide dinitrate 30 mg tablet RxNorm: 607269 Take 1 Tablet(s) Oral QD 07/08/19 021 Inactive Levemir FlexTouch U-100 Insulin 100 unit/mL (3 mL) subcutaneous pen RxNorm: 884331 Inject 140 Unit(s) Subcutaneous BID 07/08/19 021 Inactive torsemide 20 mg tablet RxNorm: 804453 Take 1 Tablet(s) Oral QD 07/08/19 023 Inactive venlafaxine 75 mg tablet RxNorm: 456165 Take 1 Tablet(s) Oral QD 07/08/19 021 Inactive acetaminophen 500 mg tablet RxNorm: 659772 Take 1 Tablet(s) Oral TID as needed for headache 06/18/19 21 021 Inactive acetaminophen 500 mg tablet RxNorm: 939270 Take 1 Tablet(s) Oral TID as needed for headache 06/18/19 21 021 Inactive Lyrica 100 mg capsule RxNorm: 428586 Take 1 Capsule(s) Oral QHS every night at bedtime 06/11/19 021 Inactive Lyrica 50 mg capsule RxNorm: 745017 Take 1 Capsule(s) Oral QAM every morning 06/10/19 21 021 Inactive hydrocortisone 2.5 % topical cream RxNorm: 988696 Apply to bilateral groin creases Topical BID 05/15/20 20 021 Inactive clotrimazole 1 % topical cream RxNorm: 917564 Apply to bilateral groin areas Topical BID 05/15/20 20 021 Inactive Lyrica 50 mg capsule RxNorm: 041507 Take 1 Capsule(s) Oral QAM every morning 05/14/20 20 020 Inactive Lyrica 100 mg capsule RxNorm: 370106 Take 1 Capsule(s) Oral QHS every night [...] Inactive Nystop 100,000 unit/gram topical powder RxNorm: 022559 Apply to abd folds, under breasts and L side of groin Topical BID x 14 days, then BID PRN 04/08/20 20 020 Inactive dx: yeast dermatitis Lyrica 100 mg capsule RxNorm: 914522 Take 1 Capsule(s) Oral QHS every night at bedtime 03/13/20 20 Inactive Lyrica 50 mg capsule RxNorm: 933880 Take 1 Capsule(s) Oral QAM every morning 03/13/20 20 Inactive ketoconazole 2 % shampoo RxNorm: 066426 Apply Topical two times a week with showers 03/11/20 20 024 Inactive cholecalciferol (vitamin D3) 50 mcg (2,000 unit) tablet RxNorm: 585448 Take 1 Tablet(s) Oral QD 03/11/20 20 021 Inactive Zetia 10 mg tablet RxNorm: 697698 Take 1 Tablet(s) Oral QD 03/07/20 20 021 Inactive Zetia 10 mg tablet RxNorm: 406905 Take 1 Tablet(s) Oral QD 03/07/20 20 020 Inactive Lyrica 50 mg capsule RxNorm: 531808 Take 1 Capsule(s) Oral QAM every morning 02/15/20 20 Inactive Lyrica 100 mg capsule RxNorm: 105737 Take 1 Capsule(s) Oral QHS every night at bedtime 02/15/20 20 Inactive Lyrica 100 mg capsule RxNorm: 212277 Take 1 Capsule(s) Oral QHS every night at bedtime 02/15/20 20 Inactive Lyrica 50 mg capsule RxNorm: 954930 Take 1 Capsule(s) Oral QAM every morning 02/15/20 20 Inactive metoprolol succinate ER 200 mg tablet,extended release 24 hr RxNorm: 032093 Take 1 Tablet(s) Oral QD 08/12/19 23 Active loperamide 2 mg capsule RxNorm: 073695 Take 1 Capsule(s) Oral QID as needed 06/12/19 22 Active hydralazine 50 mg tablet RxNorm: 983268 Take 1 Tablet(s) Oral QID 08/12/19 23 Active venlafaxine ER 75 mg capsule,extended release 24 hr RxNorm: 897959 Take 3 Capsule(s) Oral QD 06/12/19 22 023 Inactive polyethylene glycol 3350 17 gram/dose oral powder RxNorm: 061120 Take 17=1 capful Gram(s) Oral BID as needed mix with 4-8oz of liquid 06/12/19 22 024 Inactive icosapent ethyl 1 gram capsule RxNorm: 0440885 Take 2 Capsule(s) (2 gm) Oral BID with meals 10/07/19 23 023 Inactive Okay to dispense one 2gm tab if you have that available. Levemir FlexTouch U-100 Insulin 100 unit/mL (3 mL) subcutaneous pen RxNorm: 607976 Inject 80 Unit(s) Subcutaneous BID 07/14/19 23 023 Inactive Novolog Flexpen U-100 Insulin aspart 100 unit/mL (3 mL) subcutaneous RxNorm: 7824227 Insert 30 Unit(s) Subcutaneous TID with meals [...] [facility] WPtel: [address] [id number] [place] Referral Records Received 09/21/2022 Referral: [facility] [address]el: [address] [id number] [place] Referral Completed 05/28/2021 Referral: General Cardiology [...] attention.??Sister Jyotsna involved in his care cell# [phone]??Guardian: Giulia (tapan met in person 09/01/21), now [...] )??Bobbi note from 11.08.2023 at [facility]in[facility] (follow up 6 months)Colon & Rectal Surgery visit scheduled for 03/08/24 with Matilde Pérez PA-C.?? 02/08/2024
--- OUTSIDE RECORDS SUMMARY | 2024-02-19 13:22 | XMS_ITS | Encounter Summary ---
Author Organization [facility] Address [address] [place] [address] Care Team Providers Care Scrap Drop Operator Name Role Phone Services, [facility] Physician Primary Care Provi sadia Prince [...] Choose not to disclose 2021 8:[address] [place] documented as of this encounter Plan of Treatment Upcoming Encounters Date Type Department Care Team (Late st Contact Info) Description 03/08/[address] [facility] [address] [phone] Matilde Pérez PA-C [address] [place] [id number] Previsit 03/08/2024 12:00 PM CDT Office Visit [facility] [address] [place] [phone] Reinaldo Beltran PA-C [facility] [address] [facility] [address] [place] [address] Matilde Pérez PA-C [address] [place], [place] [id number] documented as of this encounter Visit Diagnoses Not on filedocumented in this encounter Care Teams Scrap Drop Operator Relationship Specialty Start Date End Date Services, [facility] Physician [address] [facility] [address] [place], [place] [id number] PCP - General 05/22/21 Prince Tobar MD [address] [place] [id number] Cardiovascular Disease 03/26/22 Prince Tobar MD [address] [place] [id number] Assigned Heart and Vascular Provider 05/30/22 documented as of this encounter
[2024-02-19] MEDS: 0.9 % SODIUM CHLORIDE 1000 ml 1,000 ML IV (13:30)
[2024-02-19 13:31] LABS: Chloride* 97 mmol/L (96-114)
[2024-02-19 13:32] LABS: Potassium* 3.6 mmol/L (3.6-5.1); Sodium* 137 mmol/L (135-149)
[2024-02-19 13:34] LABS: Creatinine* 1.1 mg/dL (0.5-1.5); Est. Creatinine Clearance* 59.02; Estimated Glomerular Filt Rate 75 ml/min
[2024-02-19 13:35] LABS: Anion Gap 11 mEq/L (7-15); Blood Urea Nitrogen* 27 mg/dL (7-30); Carbon Dioxide* 29 mmol/L (20-32); Glucose* 253 mg/dL (60-115)
[2024-02-19 14:02] LABS: PCR FLU A Negative PCR FLU A (Negative); PCR FLU B Negative PCR FLU B (Negative); SARS PCR* Negative SARS-CoV-2 (Negative)
[2024-02-19 14:04] LABS: C Reactive Protein* 1.7 mg/dL (0.5-1.0)
[2024-02-19 14:13] LABS: Troponin I* 0.01 ng/mL (0.01-0.04)
[2024-02-19 14:18] LABS: Procalcitonin* 0.22 ng/mL (<0.50)
[2024-02-19 15:11] LABS: Lactate* 1.9 mmol/L (0.5-1.9)
[2024-02-19] MEDS: 0.9 % SODIUM CHLORIDE 1000 ml 1,000 ML 125 ML IV (18:03)
--- NOTE | 2024-02-19 18:03 | P.IMHP_ITS ---
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 Patient noticed pain in his left wrist no redness or swelling. He states that this is the 1st time that he has left wrist pain. Patient denies wrist trauma, headache, chest pain, dyspnea, cough, abdominal pain, urinary or bowel movement symptoms. He [facility] [place], he uses a walker to move around. Patient is alert awake oriented by 3 but he does not provide much history about his chronic conditions and he does not know any of his medications. At the ED patient's heart rate was in the 90s, temperature was 103.7, O2SAT was in the low 90s on room air. WBCs were within normal but neutrophils were elevated , CRP was high at 1.7 and lactic acid was elevated at 2.7. Left wrist x-ray was unremarkable. EKG was normal sinus rhythm troponins were negative. Chest x-ray mild congestion. Blood cultures were sent from the ED. Orthopedic Service has been contacted by ED doctor and they accepted the consult to see the patient and evaluate. Review of Systems Status of ROS: Reports: 10 or more systems reviewed and unremarkable except as noted in History and below [facility] Medical History (Updated 02/19/24 @ 19:26 by Courtney Yu MD) Insulin dependent diabetes mellitus Recurrent deep vein thrombosis (DVT) ?I82.409 - Acute embolism and thrombosis of unspecified deep veins of unspecified lower extremity (ICD-10) Hypertension ?I10 - Essential (primary) hypertension (ICD-10) Coronary artery disease ?I25.10 - Atherosclerotic heart disease of jackson coronary artery without angina pectoris (ICD-10) Hypertriglyceridemia ?E78.1 - Pure hyperglyceridemia (ICD-10) Epilepsy ?G40.909 - Epilepsy, unspecified, not intractable, without status epilepticus (ICD-10) TASHI on CPAP ?G47.33 - Obstructive sleep apnea (adult) (pediatric) (ICD-10) ?Z99.89 - Dependence on other enabling machines and devices (ICD-10) Tachypnea ?R06.82 - Tachypnea, not elsewhere classified (ICD-10) Fever ?R50.9 - Fever, unspecified (ICD-10) CKD (chronic kidney disease) ?N18.9 - Chronic kidney disease, unspecified (ICD-10) Gout ?M10.9 - Gout, unspecified (ICD-10) Major depressive disorder ?F32.9 - Major depressive disorder, single episode, unspecified (ICD-10) Type 2 diabetes mellitus ?E11.9 - Type 2 diabetes mellitus without complications (ICD-10) Obesity ?E66.9 - Obesity, unspecified (ICD-10) Surgical History History of cholecystectomy ?Z90.49 - Acquired absence of other specified parts of digestive tract (ICD- 10) Social History Narrative: Lives in a [place] in [place], [place]. Sisters Brittany Suggs ([phone]) and Blanka Mcduffie ([phone]) listed as contacts and medical decision makers. Paperwork from penitentiary indicates Full Code status. What is your current living situation?: I presently have a place to live Problems where you live: no known problems Problems where you live details: none In the past 12 months, utilities in danger of being shut off: no In past 12 months, lack of transportation kept you from medical appts, meetings, work, or getting things needed for daily living: no In the past 12 mos, have been you worried that your food would run out before you had money to buy more?: never true In the past 12 mos, the food you bought just didn't last and you didn't have money to buy more?: never true Highest level of school completed/degree received: 12th grade, no diploma Smoking Status: Never smoker Do you use any of these nicotine containing products: None Second hand tobacco smoke exposure: No How often do you have a drink containing alcohol: never How often do you have six or more drinks on one occasion: Never AUDIT-C Alcohol total score: 0 Non-prescribed substance use: denies use Caffeine: No How often does anyone, including family, friends and others, physically hurt you : never How often does anyone, including family, friends and others, insult or talk down to you: never How often does anyone, including family, friends and others, threaten you with harm: never How often does anyone, including family, friends and others, scream or curse at you: never service: No Meds Home Medications and Allergies Home Medications ?Medication ?Instructions ?Recorded ?Confirmed ?Type amlodipine 10 mg tablet 10 mg PO DAILY 03/07/22 12/27/23 History apixaban 5 mg tablet (Eliquis) 5 mg PO BID 03/07/22 12/27/23 History aripiprazole 15 mg tablet 7.5 mg PO DAILY 03/07/22 12/27/23 History aspirin 81 mg tablet,delayed 81 mg PO DAILY 03/07/22 12/27/23 History release carbamazepine 200 mg tablet 200 mg PO BID 03/07/22 12/27/23 History chlorthalidone 25 mg tablet 25 mg PO DAILY 03/07/22 12/27/23 History ezetimibe 10 mg tablet 10 mg PO DAILY 03/07/22 12/27/23 History hydralazine 50 mg tablet 50 mg PO QID 03/07/22 12/27/23 History isosorbide mononitrate 30 mg 30 mg PO DAILY 03/07/22 12/27/23 History tablet,extended release 24 hr pantoprazole 40 mg tablet,delayed 40 mg PO DAILY 03/07/22 12/27/23 History release polyethylene glycol 3350 17 17 g PO DAILY 03/07/22 12/27/23 History gram/dose oral powder pregabalin 100 mg capsule 100 mg PO QAM 03/07/22 12/27/23 History pregabalin 150 mg capsule 150 mg PO HS 03/07/22 12/27/23 History torsemide 20 mg tablet 20 mg PO DAILY 03/07/22 12/27/23 History venlafaxine 75 mg capsule,extended 225 mg PO DAILY 03/07/22 12/27/23 History release 24 hr acetaminophen 500 mg tablet 500 mg PO Q6H 06/13/22 12/27/23 History albuterol sulfate 90 mcg/actuation 1 inh inhalation Q4H PRN 06/13/22 12/27/23 History aerosol inhaler bronchospasm diphenhydramine HCl 50 mg capsule 50 mg PO Q6H PRN itching 06/13/22 12/27/23 History (Banophen) icosapent ethyl 1 gram capsule 2 g PO BID 06/13/22 12/27/23 History (Vascepa) insulin regular hum U-500 conc 500 100 unit subcut TID 06/13/22 12/27/23 History unit/mL(3 mL) subcut pen (Humulin R U-500 (Conc) Insulin Kwikpen) ketoconazole 2 % shampoo 1 applic topical Q3D 06/13/22 12/27/23 History loperamide 2 mg capsule 2 mg PO Q6H PRN loose stool 06/13/22 12/27/23 History nystatin 100,000 unit/gram topical 1 applic topical BID PRN 06/13/22 12/27/23 History powder sennosides 8.6 mg tablet (senna) 8.6 mg PO DAILY 06/13/22 12/27/23 History clotrimazole 1 % topical cream 1 applic topical BID 07/25/22 12/27/23 History ergocalciferol (vitamin D2) 1,250 50,000 unit PO WE@07/25/22 07/25/22 History mcg (50,000 unit) capsule fluconazole 150 mg tablet 150 mg PO TUFR@07/25/22 07/25/22 History gatifloxacin 0.5 % eye drops 1 drp ophthalmic (eye) QID 07/25/22 07/25/22 History ketorolac 0.5 % eye drops 1 drp ophthalmic (eye) QID 07/25/22 07/25/22 History insulin glargine 100 unit/mL (3 30 unit subcut BID 12/27/23 12/27/23 History mL) subcutaneous pen (Basaglar KwikPen U-100 Insulin) isosorbide mononitrate 60 mg 60 mg PO DAILY 12/27/23 12/27/23 History tablet,extended release 24 hr metoprolol succinate 200 mg 200 mg PO DAILY 12/27/23 12/27/23 History tablet,extended release 24 hr rosuvastatin 20 mg tablet 40 mg PO QPM 12/27/23 12/27/23 History semaglutide 1 mg/dose (4 mg/3 mL) 4 mg subcut .weekly 12/27/23 12/27/23 History subcutaneous pen injector (Ozempic) Allergies Allergy/AdvReac Type Severity Reaction Status Date / Time lisinopril Allergy Mild Cough Verified 02/19/24 12:49 metformin AdvReac Verified 02/19/24 12:49 Exam Narrative: Exam Narrative: Physical exam GENERAL: Obese, no acute distress. HEAD AND NECK: Atraumatic, normocephalic CARDIOVASCULAR: RRR. Normal S1, S2. No murmurs. RESPIRATORY: Clear to auscultation B/L. Good air entry B/L. No wheezes or rhonchi. GASTROINTESTINAL: Obese, not tender to palpation. NEUROLOGY: Alert, awake, oriented X 3. Normal speech. MSK: Left wrist joint tender on palpation, no redness or swelling. PSYCH: Normal mood, normal affect. Const: Vital Signs, click to edit/add: Vital Signs - 24 hr 02/19/24 12:46 02/19/24 12:55 02/19/24 13:08 Temperature 103.7 F H Pulse Rate Pulse Rate [Right Pulse Oximeter] 92 Respiratory Rate 18 Blood Pressure Blood Pressure [Le ft FA] Blood Pressure [Ri ght Forearm] Blood Pressure [Ri ght Upper Arm] 120/62 Pulse Oximetry 90 92 90 Oxygen Delivery Me thod Room Air 02/19/24 13:10 02/19/24 13:18 02/19/24 13:20 Temperature 100.1 F H Pulse Rate Pulse Rate [Right Pulse Oximeter] Respiratory Rate Blood Pressure Blood Pressure [Le ft FA] Blood Pressure [Ri ght Forearm] Blood Pressure [Ri ght Upper Arm] Pulse Oximetry 91 96 Oxygen Delivery Me thod 02/19/24 13:30 02/19/24 13:31 02/19/24 13:40 Temperature Pulse Rate Pulse Rate [Right Pulse Oximeter] Respiratory Rate Blood Pressure Blood Pressure [Le ft FA] Blood Pressure [Ri ght Forearm] Blood Pressure [Ri ght Upper Arm] Pulse Oximetry 93 91 93 Oxygen Delivery Me thod 02/19/24 13:46 02/19/24 13:50 02/19/24 14:00 Temperature Pulse Rate Pulse Rate [Right Pulse Oximeter] Respiratory Rate Blood Pressure Blood Pressure [Le ft FA] Blood Pressure [Ri ght Forearm] Blood Pressure [Ri ght Upper Arm] Pulse Oximetry 93 92 94 Oxygen Delivery Me thod 02/19/24 14:00 02/19/24 14:01 02/19/24 14:04 Temperature Pulse Rate Pulse Rate [Right Pulse Oximeter] Respiratory Rate Blood Pressure Blood Pressure [Le ft FA] Blood Pressure [Ri ght Forearm] 79/47 L Blood Pressure [Ri ght Upper Arm] Pulse Oximetry 92 93 Oxygen Delivery Me thod 02/19/24 14:10 02/19/24 14:15 02/19/24 14:16 Temperature Pulse Rate Pulse Rate [Right Pulse Oximeter] Respiratory Rate Blood Pressure Blood Pressure [Le ft FA] Blood Pressure [Ri ght Forearm] 111/43 L Blood Pressure [Ri ght Upper Arm] Pulse Oximetry 93 96 Oxygen Delivery Me thod 02/19/24 14:20 02/19/24 14:21 02/19/24 14:30 Temperature 97.9 F Pulse Rate Pulse Rate [Right Pulse Oximeter] Respiratory Rate Blood Pressure Blood Pressure [Le ft FA] Blood Pressure [Ri ght Forearm] Blood Pressure [Ri ght Upper Arm] Pulse Oximetry 93 93 Oxygen Delivery Me thod 02/19/24 14:30 02/19/24 14:31 02/19/24 14:40 Temperature Pulse Rate Pulse Rate [Right Pulse Oximeter] Respiratory Rate Blood Pressure Blood Pressure [Le ft FA] Blood Pressure [Ri ght Forearm] 96/59 L 110/51 L Blood Pressure [Ri ght Upper Arm] Pulse Oximetry 92 93 Oxygen Delivery Me thod 02/19/24 14:46 02/19/24 14:47 02/19/24 14:55 Temperature Pulse Rate 84 83 Pulse Rate [Right Pulse Oximeter] Respiratory Rate Blood Pressure 116/49 L Blood Pressure [Le ft FA] Blood Pressure [Ri ght Forearm] 116/49 L Blood Pressure [Ri ght Upper Arm] Pulse Oximetry 90 93 Oxygen Delivery Me thod 02/19/24 15:02 02/19/24 15:13 02/19/24 15:15 Temperature Pulse Rate 80 81 Pulse Rate [Right Pulse Oximeter] Respiratory Rate Blood Pressure 114/49 L Blood Pressure [Le ft FA] Blood Pressure [Ri ght Forearm] Blood Pressure [Ri ght Upper Arm] Pulse Oximetry 93 92 Oxygen Delivery Me thod 02/19/24 15:16 02/19/24 15:30 02/19/24 15:31 Temperature Pulse Rate 81 78 79 Pulse Rate [Right Pulse Oximeter] Respiratory Rate Blood Pressure 117/52 L 124/52 L Blood Pressure [Le ft FA] Blood Pressure [Ri ght Forearm] Blood Pressure [Ri ght Upper Arm] Pulse Oximetry 91 92 89 Oxygen Delivery Me thod 02/19/24 15:45 02/19/24 15:46 02/19/24 17:20 Temperature 97.9 F Pulse Rate 79 82 Pulse Rate [Right Pulse Oximeter] 78 Respiratory Rate 26 H Blood Pressure 139/89 Blood Pressure [Le ft FA] 121/66 Blood Pressure [Ri ght Forearm] Blood Pressure [Ri ght Upper Arm] Pulse Oximetry 92 93 93 Oxygen Delivery Me thod Room Air 02/19/24 17:20 02/19/24 17:42 Temperature Pulse Rate Pulse Rate [Right Pulse Oximeter] Respiratory Rate 26 H Blood Pressure Blood Pressure [Le ft FA] Blood Pressure [Ri ght Forearm] Blood Pressure [Ri ght Upper Arm] Pulse Oximetry 93 93 Oxygen Delivery Me thod Room Air Hospitalist - H&P: Result Labs Labs: Short CBC 02/19/24 Range/Units 13:05 WBC 7.79 (4.50-11.00) K/uL Hgb 13.9 (13.5-17.5) gm/dL Hct 41.2 (37.0-53.0) % Plt Count 130 L (140-440) K/uL BMP 02/19/24 13:05 Sodium 137 Potassium 3.6 Chloride 97 Carbon Dioxide 29 BUN 27 Creatinine 1.1 Glucose 253 H Calcium 9.0 Cardiac Enzymes 02/19/24 Range/Units 13:05 Troponin I 0.01 (0.01-0.04) ng/mL ECG Attestation: I personally reviewed and interpreted this ECG as follows: ECG interpretation date: 02/19/24 Interpretation: EKG normal sinus rhythm, nonspecific T-wave/ST changes Imaging Chest x-ray: Attestation: I have reviewed the pertinent imaging results. Radiologist's impression: Technique: Single AP view chest Findings: There is hyperinflation and chronic interstitial change. Mildly increased interstitial markings likely representing minimal pulmonary vascular congestion. There is no pneumothorax. No dense consolidation. Cardiac silhouette is mildly prominent. The bony thorax is grossly intact. Impression: Mildly increased interstitial markings consistent with pulmonary vascular congestion. Lt wrist x ray: Radiologist's impression: TECHNIQUE: Wrist radiograph 3 views left COMPARISON: None FINDINGS: Bone: No acute fractures or aggressive bone lesions are identified. Joint: The radiocarpal, carpal, and carpometacarpal joints are unremarkable in appearance. Soft tissue: Unremarkable. No radiopaque foreign bodies are seen. Severe vascular calcifications are noted. IMPRESSION: 1. No acute osseous injuries or abnormalities are noted. Dictated by: Gael Spann MD @ 02/19/2024 14:17:47 (Electronically Signed) Assessment and Plan Assessment and plan (1) Fever: Problem comment: -started yesterday, , temperature: 103.7 -sepsis along with: lactic acid was elevated at 2.7. -source of infection is still unknown, differential diagnosis is UTI, Left wrist septic joint, less likely pneumonia -Rule out septic arthritis. Orthopedics consult. -start empiric IV antibiotics, deescalate according to blood culture and/or arthrocentesis if orthopedics are doing it. -IV fluids -MRSA screen -Follow-up blood cultures. Status: Acute (2) Sepsis: Problem comment: -fever, elevated lactic acid, heart rate in the 90s -source of infection is still unknown, differential diagnosis is UTI, Left wrist septic joint, less likely pneumonia -Rule out septic arthritis. Orthopedics consult. -start empiric IV antibiotics, deescalate according to blood culture and/or arthrocentesis if orthopedics are doing it. -IV fluids -MRSA screen -Follow-up blood cultures. Status: Acute (3) Lactic acidosis: Problem comment: -lactic acid 2.7, improved to 1.9 status post 1 L IV fluids given in the ED Status: Acute (4) Acute pain of left wrist: Problem comment: -Rule out septic arthritis. -Orthopedics consult. Status: Acute (5) Insulin dependent diabetes mellitus: Problem comment: -patient does not know his home medications -ordered Lantus 30 units q.h.s. and high insulin SSI and accuchecks Status: Acute (6) CKD (chronic kidney disease): Status: Acute (7) Obesity: Problem comment: BMI 69 Status: Acute (8) Recurrent deep vein thrombosis (DVT): Problem comment: - anticoagulated on Eliquis Status: Acute (9) Coronary artery disease: Problem comment: - STEMI in December 2019, treated at [facility] with stenting of RCA, followed next day by stenting of distal LAD and diagonal branch - patient does not know his home medications: I put him on Coreg, statin, ASA. - will need complete and accurate list of his medications Status: Acute (10) TASHI on CPAP: Status: Acute (11) Epilepsy: Problem comment: - on carbamazepine Status: Acute Plan As above Total Time Spent Total Time Spent: Time spent: Today I spent 75 minutes seeing the patient, discussing the patient with ER staff, reviewing Expanse and EPIC notes/diagnostics, discussing the care plan with our care time that includes social work, PT/OT, pharmacy, RT, half-way and documenting my impressions and plan in the medical record.
[2024-02-19] MEDS: cefTRIAXone 2 GM in 0.9 % SODIUM CHLORIDE Mini-bag 100 ML IVPB (18:37)
[2024-02-19] MEDS: INSULIN ASPART 100 UNIT/ML SUBCUT (18:37)
[2024-02-19] MEDS: carvediloL 25 MG TABLET 12.5 MG PO (18:38)
[2024-02-19] MEDS: ROSUVASTATIN CALCIUM 10 MG TABLET 40 MG PO (18:38)
[2024-02-19 18:40] LABS: Appearance Urine Clear (Clear); Bilirubin Urine Negative (Negative); Blood Urine Negative (Negative); Color Urine Yellow (Yellow); Glucose Urine Trace (Negative); Ketones Urine Negative (Negative); Leukocyte Esterase Urine Negative (Negative); Nitrite Urine Negative (Negative); Protein Urine Negative (Negative); pH Urine 5.5 (5.0-8.5)
[2024-02-19 18:48] LABS: RBC Urine 0-2 (0-2); Squamous Epithelial Cell Urine Few (None-Few); WBC Urine 0-2 (0-5)
--- NOTE | 2024-02-19 19:10 | PC.NURSE ---
Admission: The patient was admitted to the floor close to 1700. VSS upon arrival. He reports being incontinent, male purewick is in place and collecting. UA was collected and sent. Call light within reach, although has not called yet, tele in place. R AC IV infusing ABX and fluids. Ate 100% of dinner. Appears fatigued and reports L wrist pain. Donna CHA BSN
[2024-02-19] MEDS: VANCOMYCIN 2 GM/400 ML 2 GM/400 ML PIGGYBACK IVPB (20:34)
[2024-02-19] MEDS: carBAMazepine 200 MG TABLET PO (22:10)
[2024-02-19] MEDS: APIXABAN 5 MG TABLET PO (22:10)
[2024-02-19] MEDS: INSULIN GLARGINE,HUM.REC.ANLOG 100 UNIT/ML INSULN.PEN 30 UNIT SUBCUT (22:33)
[2024-02-20] VITALS (9 sets, daily range): BP systolic 133–174; BP diastolic 50–67; PULSE 76–102; RESP 18–26; TEMP 36.4–37.8; O2SAT 92–100
[2024-02-20] MEDS: carvediloL 6.25 MG TABLET 12.5 MG PO (00:19)
[2024-02-20] MEDS: 0.9 % SODIUM CHLORIDE 250 ml IV (05:23)
--- NOTE | 2024-02-20 06:17 | PC.NURSE ---
Shift note (4630-2300): Patient cooperative with cares.?Ambulated from bed to recliner and back multiple times during night. Ambulates with walker and assist of 1-2.?Denied pain. Male purewick was removed as was not intact and leaking. Attempted to applied new purewick x2 however they continued to come off. Incontinent brief applied at this time. Temp of 100.0 at 0200. Recheck temp 99.4.?
[2024-02-20 06:29] LABS: Basophils Absolute Auto 0.02 K/uL (0.00-0.30); Basophils Percent Auto 0.3 % (0.0-3.0); Eosinophils Absolute Auto 0.07 K/uL (0.00-0.50); Hematocrit 36.6 % (37.0-53.0); Hemoglobin* 12.5 gm/dL (13.5-17.5); Immature Granulocytes Abs Auto 0.04 K/uL (0.00-0.30); Immature Granulocytes Pct Auto 0.5 %; Lymphocytes Absolute Auto 1.47 K/uL (0.90-2.90); Lymphocytes Percent Auto 20.2 % (20-44); Mean Corpuscular HGB Conc 34 gm/dL (32-36); Mean Corpuscular Hemoglobin 29 pg (26-34); Mean Corpuscular Volume 85 fL (80-100); Monocytes Percent Auto 6.5 % (0.0-11.0); Neutrophils Absolute Auto 5.21 K/uL (1.7-7.0); Neutrophils Percent Auto 71.5 % (42.0-72.0); Platelet Count* 124 K/uL (140-440); RDW Coefficient of Variation % 14.4 % (11.5-15.5); Red Blood Count 4.31 m/uL (4.30-5.90); White Blood Count* 7.28 K/uL (4.50-11.00)
[2024-02-20 06:30] LABS: Slide Review Reflex No
[2024-02-20 06:44] LABS: Lactate* 1.6 mmol/L (0.5-1.9)
[2024-02-20 07:03] LABS: Albumin* 3.5 g/dL (3.3-5.0); Chloride* 98 mmol/L (96-114); Sodium* 133 mmol/L (135-149)
[2024-02-20 07:04] LABS: Potassium* 3.7 mmol/L (3.6-5.1)
[2024-02-20 07:06] LABS: Alanine Aminotransferase* 45 U/L (4-50); Alkaline Phosphatase* 111 U/L (40-150); Anion Gap 7 mEq/L (7-15); Aspartate Amino Transferase* 47 U/L (12-35); Bilirubin Total* 0.7 mg/dL (0.1-1.5); Blood Urea Nitrogen* 28 mg/dL (7-30); Carbon Dioxide* 28 mmol/L (20-32); Est. Creatinine Clearance* 64.92; Estimated Glomerular Filt Rate 84 ml/min; Glucose* 328 mg/dL (60-115); Total Protein* 6.3 g/dL (6.0-8.3)
[2024-02-20 07:07] LABS: Calcium* 7.8 mg/dL (8.4-10.6); Magnesium* 1.9 mg/dL (1.5-2.6)
[2024-02-20] MEDS: VANCOMYCIN 2 GM/400 ML 2 GM/400 ML PIGGYBACK IVPB ×2 (07:37→19:00)
[2024-02-20] MEDS: APIXABAN 5 MG TABLET PO ×2 (08:37→21:12)
[2024-02-20] MEDS: ASPIRIN 81 MG TABLET EC PO (08:37)
[2024-02-20] MEDS: INSULIN ASPART 100 UNIT/ML SUBCUT ×3 (08:37→17:15)
[2024-02-20] MEDS: SODIUM CHLORIDE 0.9 % (FLUSH) 10 ML SYRINGE 5 ML IVF ×3 (08:38→21:16)
[2024-02-20] MEDS: OMEPRAZOLE 20 MG CAPSULE DR 40 MG PO (08:38)
[2024-02-20] MEDS: carvediloL 25 MG TABLET PO ×2 (08:38→21:12)
[2024-02-20] MEDS: carBAMazepine 200 MG TABLET PO ×2 (08:42→21:12)
--- NOTE | 2024-02-20 09:11 | PM.IMPN1 ---
Progress Note: A&P Assessment and plan (1) Fever: Problem details: -started 02/18/24, , temperature: 103.7 -sepsis along with: lactic acid was elevated at 2.7. -source of infection is still unknown, differential diagnosis is UTI, Left wrist septic joint, less likely pneumonia -Rule out septic arthritis. Orthopedics consult. -start empiric IV antibiotics, deescalate according to blood culture and/or arthrocentesis if orthopedics are doing it. -IV fluids -MRSA screen -Follow-up blood cultures. -02/20/2024: Subjectively improving. Await orthopedic surgery consultation. Status: Acute (2) Sepsis: Problem details: -fever, elevated lactic acid, heart rate in the 90s -source of infection is still unknown, differential diagnosis is UTI, Left wrist septic joint, less likely pneumonia -Rule out septic arthritis. Orthopedics consult. -start empiric IV antibiotics, deescalate according to blood culture and/or arthrocentesis if orthopedics are doing it. -IV fluids -MRSA screen -Follow-up blood cultures. 02/20/2024: Remarkably improving. Status: Acute (3) Acute pain of left wrist: Problem details: -Rule out septic arthritis with known history of gout -Orthopedics consult. Status: Acute (4) Lactic acidosis: Problem details: -lactic acid 2.7, improved to 1.9 status post 1 L IV fluids given in the ED Status: Acute (5) CKD (chronic kidney disease): Status: Acute (6) Epilepsy: Problem details: - on carbamazepine Status: Acute (7) Insulin dependent diabetes mellitus: Problem details: -patient does not know his home medications -ordered Lantus 30 units q.h.s. and high insulin SSI and accuchecks Status: Acute Plan 1. Reviewed impression with patient 2. Reviewed recommendations with patient 3. Answered patient's questions to satisfaction 4. 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 Patient noticed pain in his left wrist no redness or swelling. He states that this is the 1st time that he has left wrist pain. Patient denies wrist trauma, headache, chest pain, dyspnea, cough, abdominal pain, urinary or bowel movement symptoms. He [facility] [place], he uses a walker to move around. Patient is alert awake oriented by 3 but he does not provide much history about his chronic conditions and he does not know any of his medications. At the ED patient's heart rate was in the 90s, temperature was 103.7, O2SAT was in the low 90s on room air. WBCs were within normal but neutrophils were elevated , CRP was high at 1.7 and lactic acid was elevated at 2.7. Left wrist x-ray was unremarkable. EKG was normal sinus rhythm troponins were negative. Chest x-ray mild congestion. Blood cultures were sent from the ED. Orthopedic Service has been contacted by ED doctor and they accepted the consult to see the patient and evaluate. Hospital day 2. Admitted to observation on 02/19/2024. T-max yesterday was 103.7? F and current temperature 99.4? F. He indicates he feels better now. He thinks the wrist is less uncomfortable. Able to move the affected wrist on the left , albeit less than the 1 on the right due to pain. Denies any other localizing symptoms. Denies upper or lower gastrointestinal tract symptoms. Denies upper or lower respiratory tract symptoms. Denies genitourinary tract symptoms. Denies any skin wounds, lesions, rashes. Asked me several times when he can go home. He tells me he did not sleep well in the Small hospital bed, that he ordinarily sleeps in a [place] size bed. Tolerating oral intake. Exam Narrative: Exam Narrative: I examine him in his hospital room. Appears comfortable. No acute distress. Alert and oriented to self, place, and somewhat to time and situation. Anxious to return to his home. Slow to process conversation and respond. As I review old medical records this is not new. Morbidly obese. Apple shape body habitus. Decreased range of motion of left wrist compared to the right, minimally. No real subjective discomfort to palpation of left wrist or right. Lungs are clear to auscultation with distant breath sounds. No CVA tenderness to thumping. Heart tones with regular rhythm, normal S1-S2, without murmur, gallop, or rub. PMI is not laterally displaced. Abdomen with active bowel sounds, soft, nontender. No rebound or guarding. Bilateral lower extremity edema. Independent in transfer, station, gait. No focal motor neurologic deficits. Const: Vital Signs, click to edit/add: Vital Signs - 24 hr 02/19/24 12:46 02/19/24 12:55 02/19/24 13:08 Temperature 103.7 F H Pulse Rate Pulse Rate [Right Pulse Oximeter] 92 Respiratory Rate 18 Blood Pressure Blood Pressure [Le ft FA] Blood Pressure [Ri ght Forearm] Blood Pressure [Ri ght Upper Arm] 120/62 Pulse Oximetry 90 92 90 Oxygen Delivery Me thod Room Air 02/19/24 13:10 02/19/24 13:18 02/19/24 13:20 Temperature 100.1 F H Pulse Rate Pulse Rate [Right Pulse Oximeter] Respiratory Rate Blood Pressure Blood Pressure [Le ft FA] Blood Pressure [Ri ght Forearm] Blood Pressure [Ri ght Upper Arm] Pulse Oximetry 91 96 Oxygen Delivery Me thod 02/19/24 13:30 02/19/24 13:31 02/19/24 13:40 Temperature Pulse Rate Pulse Rate [Right Pulse Oximeter] Respiratory Rate Blood Pressure Blood Pressure [Le ft FA] Blood Pressure [Ri ght Forearm] Blood Pressure [Ri ght Upper Arm] Pulse Oximetry 93 91 93 Oxygen Delivery Me thod 02/19/24 13:46 02/19/24 13:50 02/19/24 14:00 Temperature Pulse Rate Pulse Rate [Right Pulse Oximeter] Respiratory Rate Blood Pressure Blood Pressure [Le ft FA] Blood Pressure [Ri ght Forearm] Blood Pressure [Ri ght Upper Arm] Pulse Oximetry 93 92 94 Oxygen Delivery Me thod 02/19/24 14:00 02/19/24 14:01 02/19/24 14:04 Temperature Pulse Rate Pulse Rate [Right Pulse Oximeter] Respiratory Rate Blood Pressure Blood Pressure [Le ft FA] Blood Pressure [Ri ght Forearm] 79/47 L Blood Pressure [Ri ght Upper Arm] Pulse Oximetry 92 93 Oxygen Delivery Me thod 02/19/24 14:10 02/19/24 14:15 02/19/24 14:16 Temperature Pulse Rate Pulse Rate [Right Pulse Oximeter] Respiratory Rate Blood Pressure Blood Pressure [Le ft FA] Blood Pressure [Ri ght Forearm] 111/43 L Blood Pressure [Ri ght Upper Arm] Pulse Oximetry 93 96 Oxygen Delivery Me thod 02/19/24 14:20 02/19/24 14:21 02/19/24 14:30 Temperature 97.9 F Pulse Rate Pulse Rate [Right Pulse Oximeter] Respiratory Rate Blood Pressure Blood Pressure [Le ft FA] Blood Pressure [Ri ght Forearm] Blood Pressure [Ri ght Upper Arm] Pulse Oximetry 93 93 Oxygen Delivery Me thod 02/19/24 14:30 02/19/24 14:31 02/19/24 14:40 Temperature Pulse Rate Pulse Rate [Right Pulse Oximeter] Respiratory Rate Blood Pressure Blood Pressure [Le ft FA] Blood Pressure [Ri ght Forearm] 96/59 L 110/51 L Blood Pressure [Ri ght Upper Arm] Pulse Oximetry 92 93 Oxygen Delivery Me thod 02/19/24 14:46 02/19/24 14:47 02/19/24 14:55 Temperature Pulse Rate 84 83 Pulse Rate [Right Pulse Oximeter] Respiratory Rate Blood Pressure 116/49 L Blood Pressure [Le ft FA] Blood Pressure [Ri ght Forearm] 116/49 L Blood Pressure [Ri ght Upper Arm] Pulse Oximetry 90 93 Oxygen Delivery Me thod 02/19/24 15:02 02/19/24 15:13 02/19/24 15:15 Temperature Pulse Rate 80 81 Pulse Rate [Right Pulse Oximeter] Respiratory Rate Blood Pressure 114/49 L Blood Pressure [Le ft FA] Blood Pressure [Ri ght Forearm] Blood Pressure [Ri ght Upper Arm] Pulse Oximetry 93 92 Oxygen Delivery Me thod 02/19/24 15:16 02/19/24 15:30 02/19/24 15:31 Temperature Pulse Rate 81 78 79 Pulse Rate [Right Pulse Oximeter] Respiratory Rate Blood Pressure 117/52 L 124/52 L Blood Pressure [Le ft FA] Blood Pressure [Ri ght Forearm] Blood Pressure [Ri ght Upper Arm] Pulse Oximetry 91 92 89 Oxygen Delivery Me thod 02/19/24 15:45 02/19/24 15:46 02/19/24 17:20 Temperature 97.9 F Pulse Rate 79 82 Pulse Rate [Right Pulse Oximeter] 78 Respiratory Rate 26 H Blood Pressure 139/89 Blood Pressure [Le ft FA] 121/66 Blood Pressure [Ri ght Forearm] Blood Pressure [Ri ght Upper Arm] Pulse Oximetry 92 93 93 Oxygen Delivery Me thod Room Air 02/19/24 17:20 02/19/24 17:42 02/19/24 19:00 Temperature 98.1 F Pulse Rate Pulse Rate [Right Pulse Oximeter] 91 Respiratory Rate 26 H 20 Blood Pressure Blood Pressure [Le ft FA] 155/71 H Blood Pressure [Ri ght Forearm] Blood Pressure [Ri ght Upper Arm] Pulse Oximetry 93 93 94 Oxygen Delivery Me thod Room Air Room Air 02/19/24 19:35 02/19/24 22:37 02/20/24 01:58 Temperature 98.1 F 100.0 F H Pulse Rate 83 Pulse Rate [Right Pulse Oximeter] 96 102 H Respiratory Rate 20 18 Blood Pressure Blood Pressure [Le ft FA] 164/75 H 133/56 L Blood Pressure [Ri ght Forearm] Blood Pressure [Ri ght Upper Arm] Pulse Oximetry 92 95 Oxygen Delivery Mi thod Room Air Room Air 02/20/24 03:05 02/20/24 08:22 Temperature 99.4 F 97.7 F Pulse Rate Pulse Rate [Right Pulse Oximeter] 91 Respiratory Rate 26 H Blood Pressure Blood Pressure [Le ft FA] 174/67 H Blood Pressure [Ri ght Forearm] Blood Pressure [Ri ght Upper Arm] Pulse Oximetry 92 Oxygen Delivery Mi thod Room Air Labs Labs: Laboratory Results - last 24 hr 02/19/24 02/19/24 02/19/24 13:05 13:06 15:07 WBC 7.79 RBC 4.90 Hgb 13.9 Hct 41.2 MCV 84 MCH 28 MCHC 34 RDW Coeff of Kaylen 14.0 Plt Count 130 L Neut % (Auto) 80.3 H Lymph % (Auto) 13.1 L [place] % (Auto) 4.5 Eos % (Auto) 1.5 Baso % (Auto) 0.3 Neut # (Auto) 6.30 Lymph # (Auto) 1.00 [place] # (Auto) 0.40 Eos # (Auto) 0.12 Baso # (Auto) 0.02 Abs Immat Gran (auto) 0.02 Imm/Tot Granulo (auto) 0.3 Sodium 137 Potassium 3.6 Chloride 97 Carbon Dioxide 29 Anion Gap 11 BUN 27 Creatinine 1.1 Estimated Creat Clear 59.02 Estimated GFR 75 Glucose 253 H Lactate 2.7 H 1.9 Calcium 9.0 Magnesium Total Bilirubin AST ALT Alkaline Phosphatase Troponin I 0.01 C-Reactive Protein 1.7 H Total Protein Albumin Procalcitonin 0.22 Urine Color Urine Appearance Urine pH Ur Specific [place] Urine Protein Urine Glucose (UA) Urine Ketones Urine Blood Urine Nitrite Urine Bilirubin Urine Urobilinogen Ur Leukocyte Esterase Urine RBC Urine WBC Ur Squamous Epith Cells Urine Bacteria SARS-CoV-2 (PCR) Negative SARS-CoV-2 Influenza Type A (PCR) Negative PCR FLU A Influenza Type B (PCR) Negative PCR FLU B 02/19/24 02/20/24 18:20 05:42 WBC 7.28 RBC 4.31 Hgb 12.5 L Hct 36.6 L MCV 85 MCH 29 MCHC 34 RDW Coeff of Kaylen 14.4 Plt Count 124 L Neut % (Auto) 71.5 Lymph % (Auto) 20.2 [place] % (Auto) 6.5 Eos % (Auto) 1.0 Baso % (Auto) 0.3 Neut # (Auto) 5.21 Lymph # (Auto) 1.47 [place] # (Auto) 0.50 Eos # (Auto) 0.07 Baso # (Auto) 0.02 Abs Immat Gran (auto) 0.04 Imm/Tot Granulo (auto) 0.5 Sodium 133 L Potassium 3.7 Chloride 98 Carbon Dioxide 28 Anion Gap 7 BUN 28 Creatinine 1.0 Estimated Creat Clear 64.92 Estimated GFR 84 Glucose 328 H Lactate 1.6 Calcium 7.8 L Magnesium 1.9 Total Bilirubin 0.7 AST 47 H ALT 45 Alkaline Phosphatase 111 Troponin I C-Reactive Protein Total Protein 6.3 Albumin 3.5 Procalcitonin Urine Color Yellow Urine Appearance Clear Urine pH 5.5 Ur Specific [place] 1.020 Urine Protein Negative Urine Glucose (UA) Trace A Urine Ketones Negative Urine Blood Negative Urine Nitrite Negative Urine Bilirubin Negative Urine Urobilinogen 1.0 Ur Leukocyte Esterase Negative Urine RBC 0-2 Urine WBC 0-2 Ur Squamous Epith Cells Few Urine Bacteria None SARS-CoV-2 (PCR) Influenza Type A (PCR) Influenza Type B (PCR) Imaging Chest x-ray: Attestation: I have reviewed the pertinent imaging results. Radiologist's impression: Mildly increased interstitial markings consistent with pulmonary vascular congestion. Left wrist x-ray: Attestation: I have reviewed the pertinent imaging results. Radiologist's impression: No acute osseous injuries or abnormalities are noted.
[2024-02-20] MEDS: AMLODIPINE 10 MG TABLET PO (15:32)
[2024-02-20 16:41] LABS: Erythrocyte SedimentationRate* 71 mm/hr (2-15)
[2024-02-20 16:55] LABS: C Reactive Protein* 16.6 mg/dL (0.5-1.0)
[2024-02-20] MEDS: INSULIN ASPART 100 UNIT/ML 10 UNIT SUBCUT (17:15)
[2024-02-20] MEDS: ROSUVASTATIN CALCIUM 10 MG TABLET 40 MG PO (17:46)
[2024-02-20] MEDS: cefTRIAXone 2 GM in 0.9 % SODIUM CHLORIDE Mini-bag 100 ML IVPB (17:47)
--- NOTE | 2024-02-20 18:13 | PC.NURSE ---
End of Shift: Patient pleasant and cooperative. Patient vitally stable, lungs clear, BS WNL, IV SL and intact. Patient denies pain, assist of 1/walker up to chair today. Patient currently with male external catheter, patient previously with female catheter and still incontinent on pads, no BM this shift. Blood sugars 309, 367, 396. Patient tolerating regular diet.
[2024-02-20] MEDS: INSULIN GLARGINE,HUM.REC.ANLOG 100 UNIT/ML INSULN.PEN 45 UNIT SUBCUT (21:12)
[2024-02-20] MEDS: INSULIN ASPART 100 UNIT/ML 15 UNIT SUBCUT (22:25)
[2024-02-21 02:15] VITALS: BP 160/71; PULSE 88; RESP 22; TEMP 36.4; O2SAT 94
[2024-02-21 06:24] LABS: Hematocrit 37.6 % (37.0-53.0); Hemoglobin* 12.8 gm/dL (13.5-17.5); Mean Corpuscular HGB Conc 34 gm/dL (32-36); Mean Corpuscular Hemoglobin 29 pg (26-34); Mean Corpuscular Volume 85 fL (80-100); Platelet Count* 122 K/uL (140-440); Red Blood Count 4.44 m/uL (4.30-5.90); White Blood Count* 5.71 K/uL (4.50-11.00)
[2024-02-21 06:25] LABS: Slide Review Reflex No
--- NOTE | 2024-02-21 06:33 | PC.NURSE ---
Pt alert and oriented x3. Afebrile. Pt denies pain, chest pain, and N/V. SOB is noted with exertion. Pt is up A1 with walker and gait belt and voiding. Pt had x4 soaked pads. External catheter only able to collect minimal amounts of urine and kept falling off pt due to pt turning and readjusting in bed. Pt slept throughout most of night. ???
[2024-02-21 06:34] LABS: Sodium* 135 mmol/L (135-149)
[2024-02-21 06:54] LABS: C Reactive Protein* 20.2 mg/dL (0.5-1.0)
[2024-02-21 07:00] VITALS: BP 148/58; PULSE 82; RESP 20; TEMP 37.1; O2SAT 94
[2024-02-21] MEDS: VANCOMYCIN 2 GM/400 ML 2 GM/400 ML PIGGYBACK IVPB (07:21)
[2024-02-21] MEDS: 0.9 % SODIUM CHLORIDE 250 ml IV (07:21)
[2024-02-21] MEDS: INSULIN ASPART 100 UNIT/ML 10 UNIT SUBCUT ×2 (08:14→12:23)
--- NOTE | 2024-02-21 08:14 | P.ORCN_ITS ---
History of Present Illness HPI Date Seen: 02/20/24 Consult date: 02/20/24 Chief complaint: fever Narrative: Orthopedics consulted on hospital patient who presented with fever and left wrist pain. Patient comments that he began to notice left wrist pain 02/19/2024 without known injury. No history of left wrist discomfort. No history of trauma or fall. He denies any redness, swelling, or wounds around the left wrist. Since at the hospital, has received IV antibiotics. Reports that his wrist does not hurt him today. Reports full wrist motion. He is wondering if he can now go home. Also notes a wound on his anterior abdomen. He also reports chronic numbness/tingling involving the ring and long digit, occasionally the index. His medical history is vast, including hypertension, obesity, history of [place], insulin-dependent type 2 diabetes, chronic kidney disease, gout, TASHI, and history of DVTs now on Eliquis. This list does not include his complete medical history. He lives in a [facility] and [place] primarily using a walker for ambulation. Due to elevated heart rate as well as temperature of 103.7? F, he was admitted to the hospital for workup. Review of Systems Narrative: No recent injury; no recent known infection or illness. Denies breathing difficulty or chest pain. [facility] Medical History (Updated 02/21/24 @ 08:13 by Jass Segura PA-C) Anemia in chronic kidney disease (CKD) ?N18.9 - Chronic kidney disease, unspecified (ICD-10) ?D63.1 - Anemia in chronic kidney disease (ICD-10) Chronic kidney disease (CKD), stage IV (severe) ?N18.4 - Chronic kidney disease, stage 4 (severe) (ICD-10) DISH (diffuse idiopathic skeletal hyperostosis) ?M48.10 - Ankylosing hyperostosis [[place]], site unspecified (ICD-10) Edema ?R60.9 - Edema, unspecified (ICD-10) Neuropathy ?G62.9 - Polyneuropathy, unspecified (ICD-10) Learning disability ?F81.9 - Developmental disorder of scholastic skills, unspecified (ICD-10) Insomnia ?G47.00 - Insomnia, unspecified (ICD-10) Metabolic syndrome ?E88.810 - Metabolic syndrome (ICD-10) Sensorineural hearing loss (SNHL) of both ears ?H90.3 - Sensorineural hearing loss, bilateral (ICD-10) Tinnitus ?H93.19 - Tinnitus, unspecified ear (ICD-10) Hypercholesterolemia ?E78.00 - Pure hypercholesterolemia, unspecified (ICD-10) Insulin dependent diabetes mellitus Recurrent deep vein thrombosis (DVT) ?I82.409 - Acute embolism and thrombosis of unspecified deep veins of unspecified lower extremity (ICD-10) Hypertension ?I10 - Essential (primary) hypertension (ICD-10) Coronary artery disease ?I25.10 - Atherosclerotic heart disease of [place] coronary artery without angina pectoris (ICD-10) Hypertriglyceridemia ?E78.1 - Pure hyperglyceridemia (ICD-10) Epilepsy ?G40.909 - Epilepsy, unspecified, not intractable, without status epilepticus (ICD-10) TASHI on CPAP ?G47.33 - Obstructive sleep apnea (adult) (pediatric) (ICD-10) ?Z99.89 - Dependence on other enabling machines and devices (ICD-10) Tachypnea ?R06.82 - Tachypnea, not elsewhere classified (ICD-10) Fever ?R50.9 - Fever, unspecified (ICD-10) CKD (chronic kidney disease) ?N18.9 - Chronic kidney disease, unspecified (ICD-10) Gout ?M10.9 - Gout, unspecified (ICD-10) Major depressive disorder ?F32.9 - Major depressive disorder, single episode, unspecified (ICD-10) Type 2 diabetes mellitus ?E11.9 - Type 2 diabetes mellitus without complications (ICD-10) Obesity ?E66.9 - Obesity, unspecified (ICD-10) Surgical History History of cholecystectomy ?Z90.49 - Acquired absence of other specified parts of digestive tract (ICD- 10) Social History Narrative: Lives in a [facility]pc in [place], [place]. Sisters Brittany Suggs ([phone]) and Blanka Mcduffie ([phone]) listed as contacts and medical decision makers. Paperwork from fpc indicates Full Code status. What is your current living situation?: I presently have a place to live Problems where you live: no known problems Problems where you live details: none In the past 12 months, utilities in danger of being shut off: no In past 12 months, lack of transportation kept you from medical appts, meetings, work, or getting things needed for daily living: no In the past 12 mos, have been you worried that your food would run out before you had money to buy more?: never true In the past 12 mos, the food you bought just didn't last and you didn't have money to buy more?: never true Highest level of school completed/degree received: 12th grade, no diploma Smoking Status: Never smoker Do you use any of these nicotine containing products: None Second hand tobacco smoke exposure: No How often do you have a drink containing alcohol: never How often do you have six or more drinks on one occasion: Never AUDIT-C Alcohol total score: 0 Non-prescribed substance use: denies use Caffeine: No How often does anyone, including family, friends and others, physically hurt you : never How often does anyone, including family, friends and others, insult or talk down to you: never How often does anyone, including family, friends and others, threaten you with harm: never How often does anyone, including family, friends and others, scream or curse at you: never service: No Meds Home Medications and Allergies Home Medications ?Medication ?Instructions ?Recorded ?Confirmed ?Type amlodipine 10 mg tablet 10 mg PO DAILY 03/07/22 02/20/24 History apixaban 5 mg tablet (Eliquis) 5 mg PO BID 03/07/22 02/20/24 History aripiprazole 15 mg tablet 7.5 mg PO DAILY 03/07/22 02/20/24 History aspirin 81 mg tablet,delayed 81 mg PO DAILY 03/07/22 12/27/23 History release carbamazepine 200 mg tablet 200 mg PO BID 03/07/22 02/20/24 History chlorthalidone 25 mg tablet 25 mg PO DAILY 03/07/22 02/20/24 History ezetimibe 10 mg tablet 10 mg PO DAILY 03/07/22 02/20/24 History hydralazine 50 mg tablet 50 mg PO QID 03/07/22 02/20/24 History pantoprazole 40 mg tablet,delayed 40 mg PO DAILY 03/07/22 02/20/24 History release polyethylene glycol 3350 17 17 g PO DAILY 03/07/22 12/27/23 History gram/dose oral powder pregabalin 100 mg capsule 100 mg PO QAM 03/07/22 02/20/24 History pregabalin 150 mg capsule 150 mg PO HS 03/07/22 02/20/24 History torsemide 20 mg tablet 20 mg PO DAILY 03/07/22 02/20/24 History venlafaxine 75 mg capsule,extended 225 mg PO DAILY 03/07/22 02/20/24 History release 24 hr acetaminophen 500 mg tablet 500 mg PO Q6H 06/13/22 12/27/23 History albuterol sulfate 90 mcg/actuation 1 inh inhalation Q4H PRN 06/13/22 12/27/23 History aerosol inhaler bronchospasm diphenhydramine HCl 50 mg capsule 50 mg PO Q6H PRN itching 06/13/22 12/27/23 History (Banophen) icosapent ethyl 1 gram capsule 2 g PO BID 06/13/22 12/27/23 History (Vascepa) insulin regular hum U-500 conc 500 100 unit subcut TID 06/13/22 02/20/24 History unit/mL(3 mL) subcut pen (Humulin R U-500 (Conc) Insulin Kwikpen) ketoconazole 2 % shampoo 1 applic topical Q3D 06/13/22 12/27/23 History loperamide 2 mg capsule 2 mg PO Q6H PRN loose stool 06/13/22 12/27/23 History nystatin 100,000 unit/gram topical 1 applic topical BID PRN 06/13/22 02/20/24 History powder sennosides 8.6 mg tablet (senna) 8.6 mg PO DAILY 06/13/22 12/27/23 History clotrimazole 1 % topical cream 1 applic topical BID 07/25/22 12/27/23 History ergocalciferol (vitamin D2) 1,250 50,000 unit PO WE@07/25/22 07/25/22 History mcg (50,000 unit) capsule fluconazole 150 mg tablet 150 mg PO TUFR@07/25/22 07/25/22 History gatifloxacin 0.5 % eye drops 1 drp ophthalmic (eye) QID 07/25/22 07/25/22 History ketorolac 0.5 % eye drops 1 drp ophthalmic (eye) QID 07/25/22 07/25/22 History insulin glargine 100 unit/mL (3 30 unit subcut BID 12/27/23 02/20/24 History mL) subcutaneous pen (Basaglar KwikPen U-100 Insulin) isosorbide mononitrate 60 mg 60 mg PO DAILY 12/27/23 02/20/24 History tablet,extended release 24 hr metoprolol succinate 200 mg 200 mg PO DAILY 12/27/23 02/20/24 History tablet,extended release 24 hr semaglutide 1 mg/dose (4 mg/3 mL) 4 mg subcut .weekly 12/27/23 12/27/23 History subcutaneous pen injector (Ozempic) carvedilol 25 mg tablet 25 mg PO DAILY 02/20/24 02/20/24 History potassium chloride 20 mEq 20 meq PO QID 02/20/24 02/20/24 History tablet,extended release(part/cryst) rosuvastatin 40 mg tablet 40 mg PO HS 02/20/24 02/20/24 History Allergies Allergy/AdvReac Type Severity Reaction Status Date / Time lisinopril Allergy Mild Cough Verified 02/19/24 12:49 metformin AdvReac Verified 02/19/24 12:49 Ortho Exam Narrative Exam Narrative: General: Morbidly obese individual. Well-nourished, A&Ox 3, no apparent acute distress. Lies left recumbent Pulmonary: Breathing pattern regular, even, without apparent distress or audible wheeze present. Left Wrist: No swelling, ecchymosis, or erythema. No warmth. No gross deformity No obvious wounds, or skin concerns Very mild discomfort to palpation over the radial aspect of the distal radius, which is comparable to contralateral wrist PROM: Flexion 60?, extension 50? all without pain, or crepitus AROM: Flexion 50?, extension 40?, radial deviation 20?, ulnar deviation 30?; 90? pronation and supination respectively (all measurements comparable to contralateral) Negative Durkan's Negative Tinel's wrist flexor retinaculum No pain with passive extension of the digits past extension; digits do not rest in a flexed position nor is there swelling through the digits. 5/5 strength with full composite fist. 2+ radial pulse, pink, warm, appropriate capillary refill digits; intact dermatomes and myotomes distally (radial, ulnar, and median nerve distributions) Const Vital Signs, click to edit/add: Vital Signs - 24 hr 02/20/24 08:22 02/20/24 08:22 02/20/24 11:07 Temperature 97.7 F 98.3 F Pulse Rate [Right Pulse Oximeter] 91 91 85 Respiratory Rate 26 H 26 H 24 Blood Pressure [Left FA] 174/67 H 139/50 L Pulse Oximetry 92 92 Oxygen Delivery Method Room Air Room Air 02/20/24 15:27 02/20/24 15:27 02/20/24 17:26 Temperature 98.2 F Pulse Rate [Right Pulse Oximeter] 83 83 Respiratory Rate 26 H 26 H Blood Pressure [Left FA] 144/61 H Pulse Oximetry 94 94 Oxygen Delivery Method Room Air 02/20/24 20:03 02/20/24 21:30 02/20/24 23:26 Temperature 98.3 F 97.5 F L Pulse Rate [Right Pulse Oximeter] 76 79 88 Respiratory Rate 24 24 Blood Pressure [Left FA] 155/62 H 159/61 H Pulse Oximetry 96 100 Oxygen Delivery Method Room Air Room Air 02/21/24 02:15 02/21/24 07:00 02/21/24 07:00 Temperature 97.5 F L 98.8 F Pulse Rate [Right Pulse Oximeter] 88 82 82 Respiratory Rate 22 20 20 Blood Pressure [Left FA] 160/71 H 148/58 H Pulse Oximetry 94 94 Oxygen Delivery Method Room Air Room Air Results Labs Labs: Laboratory Results - last 48 hr 02/19/24 02/19/24 02/19/24 13:05 13:06 15:07 WBC 7.79 RBC 4.90 Hgb 13.9 Hct 41.2 MCV 84 MCH 28 MCHC 34 RDW Coeff of Kaylen 14.0 Plt Count 130 L Neut % (Auto) 80.3 H Lymph % (Auto) 13.1 L [place] % (Auto) 4.5 Eos % (Auto) 1.5 Baso % (Auto) 0.3 Neut # (Auto) 6.30 Lymph # (Auto) 1.00 [place] # (Auto) 0.40 Eos # (Auto) 0.12 Baso # (Auto) 0.02 Abs Immat Gran (auto) 0.02 Imm/Tot Granulo (auto) 0.3 ESR Sodium 137 Potassium 3.6 Chloride 97 Carbon Dioxide 29 Anion Gap 11 BUN 27 Creatinine 1.1 Estimated Creat Clear 59.02 Estimated GFR 75 Glucose 253 H Lactate 2.7 H 1.9 Calcium 9.0 Magnesium Total Bilirubin AST ALT Alkaline Phosphatase Troponin I 0.01 C-Reactive Protein 1.7 H Total Protein Albumin Procalcitonin 0.22 Urine Color Urine Appearance Urine pH Ur Specific [place] Urine Protein Urine Glucose (UA) Urine Ketones Urine Blood Urine Nitrite Urine Bilirubin Urine Urobilinogen Ur Leukocyte Esterase Urine RBC Urine WBC Ur Squamous Epith Cells Urine Bacteria SARS-CoV-2 (PCR) Negative SARS-CoV-2 Influenza Type A (PCR) Negative PCR FLU A Influenza Type B (PCR) Negative PCR FLU B 02/19/24 02/20/24 02/20/24 18:20 05:42 16:01 WBC 7.28 RBC 4.31 Hgb 12.5 L Hct 36.6 L MCV 85 MCH 29 MCHC 34 RDW Coeff of Kaylen 14.4 Plt Count 124 L Neut % (Auto) 71.5 Lymph % (Auto) 20.2 [place] % (Auto) 6.5 Eos % (Auto) 1.0 Baso % (Auto) 0.3 Neut # (Auto) 5.21 Lymph # (Auto) 1.47 [place] # (Auto) 0.50 Eos # (Auto) 0.07 Baso # (Auto) 0.02 Abs Immat Gran (auto) 0.04 Imm/Tot Granulo (auto) 0.5 ESR 71 H Sodium 133 L Potassium 3.7 Chloride 98 Carbon Dioxide 28 Anion Gap 7 BUN 28 Creatinine 1.0 Estimated Creat Clear 64.92 Estimated GFR 84 Glucose 328 H Lactate 1.6 Calcium 7.8 L Magnesium 1.9 Total Bilirubin 0.7 AST 47 H ALT 45 Alkaline Phosphatase 111 Troponin I C-Reactive Protein 16.6 H Total Protein 6.3 Albumin 3.5 Procalcitonin Urine Color Yellow Urine Appearance Clear Urine pH 5.5 Ur Specific [place] 1.020 Urine Protein Negative Urine Glucose (UA) Trace A Urine Ketones Negative Urine Blood Negative Urine Nitrite Negative Urine Bilirubin Negative Urine Urobilinogen 1.0 Ur Leukocyte Esterase Negative Urine RBC 0-2 Urine WBC 0-2 Ur Squamous Epith Cells Few Urine Bacteria None SARS-CoV-2 (PCR) Influenza Type A (PCR) Influenza Type B (PCR) 02/21/24 05:52 WBC 5.71 RBC 4.44 Hgb 12.8 L Hct 37.6 MCV 85 MCH 29 MCHC 34 RDW Coeff of Kaylen Plt Count 122 L Neut % (Auto) Lymph % (Auto) [place] % (Auto) Eos % (Auto) Baso % (Auto) Neut # (Auto) Lymph # (Auto) [place] # (Auto) Eos # (Auto) Baso # (Auto) Abs Immat Gran (auto) Imm/Tot Granulo (auto) ESR Sodium 135 Potassium Chloride Carbon Dioxide Anion Gap BUN Creatinine Estimated Creat Clear Estimated GFR Glucose Lactate Calcium Magnesium Total Bilirubin AST ALT Alkaline Phosphatase Troponin I C-Reactive Protein 20.2 H Total Protein Albumin Procalcitonin Urine Color Urine Appearance Urine pH Ur Specific [place] Urine Protein Urine Glucose (UA) Urine Ketones Urine Blood Urine Nitrite Urine Bilirubin Urine Urobilinogen Ur Leukocyte Esterase Urine RBC Urine WBC Ur Squamous Epith Cells Urine Bacteria SARS-CoV-2 (PCR) Influenza Type A (PCR) Influenza Type B (PCR) Diagnostic results Wrist/Hand x-ray: report reviewed and image reviewed Additional Comments: Three views left wrist ordered by different provider [facility] dated 02/19/2024. These images were reviewed and corroborated with the radiology report showing no acute radiographic evidence of fracture, dislocation, foreign body, or interosseous pathology. No obvious wrist effusion. Calcific changes noted to the ulnar and radial arteries. Mild joint space narrowing radial aspect between the distal radius and scaphoid. Assessment and Plan Assessment and plan (1) Fever: Problem comment: -started 02/18/24, , temperature: 103.7 -sepsis along with: lactic acid was elevated at 2.7. -source of infection is still unknown, differential diagnosis is UTI, Left wrist septic joint, less likely pneumonia -Rule out septic arthritis. Orthopedics consult. -start empiric IV antibiotics, deescalate according to blood culture and/or arthrocentesis if orthopedics are doing it. -IV fluids -MRSA screen -Follow-up blood cultures. -02/20/2024: Subjectively improving. Await orthopedic surgery consultation. Status: Acute Total time spent: Total time spent is greater than 50% in coordination of care (as documented) at patient's floor/unit and/or counseling patient: (2) Sepsis: Problem comment: -fever, elevated lactic acid, heart rate in the 90s -source of infection is still unknown, differential diagnosis is UTI, Left wrist septic joint, less likely pneumonia -Rule out septic arthritis. Orthopedics consult. -start empiric IV antibiotics, deescalate according to blood culture and/or arthrocentesis if orthopedics are doing it. -IV fluids -MRSA screen -Follow-up blood cultures. 02/20/2024: Remarkably improving. Status: Acute Total time spent: Total time spent is greater than 50% in coordination of care (as documented) at patient's floor/unit and/or counseling patient: (3) Acute pain of left wrist: Problem comment: -wrist is nontender without erythema, swelling, or obvious wound. Demonstrates unimpaired, pain-free passive and active wrist range of motion Status: Acute Total time spent: Total time spent is greater than 50% in coordination of care (as documented) at patient's floor/unit and/or counseling patient: (4) Lactic acidosis: Problem comment: -lactic acid 2.7, improved to 1.9 status post 1 L IV fluids given in the ED Status: Acute Total time spent: Total time spent is greater than 50% in coordination of care (as documented) at patient's floor/unit and/or counseling patient: (5) CKD (chronic kidney disease): Status: Acute Total time spent: Total time spent is greater than 50% in coordination of care (as documented) at patient's floor/unit and/or counseling patient: (6) Epilepsy: Problem comment: - on carbamazepine Status: Acute Total time spent: Total time spent is greater than 50% in coordination of care (as documented) at patient's floor/unit and/or counseling patient: (7) Insulin dependent diabetes mellitus: Problem comment: -patient does not know his home medications -ordered Lantus 30 units q.h.s. and high insulin SSI and accuchecks Status: Acute Total time spent: Total time spent is greater than 50% in coordination of care (as documented) at patient's floor/unit and/or counseling patient: Plan We had a thorough discussion regarding potential wrist pathology. At this time, his left wrist does not appear to be septic. Again, he has pain-free, u nimpaired passive and active wrist range of motion. There are no lesions involving the wrist or upper arm; no wounds. While I appreciate the elevated ESR and CRP, it does not appear the left wrist is a contributor at this time. Thus, I do not recommend arthrocentesis at this time. Of course, if symptoms change, and patient begins to complain of more left wrist pain or there is evidence of erythema, heat, swelling at the left wrist, orthopedics is happy to visit patient and at that point consider if arthrocentesis is appropriate. Thank you for allowing me to participate in the patient's care.
[2024-02-21] MEDS: INSULIN ASPART 100 UNIT/ML SUBCUT ×2 (08:15→12:24)
[2024-02-21] MEDS: AMLODIPINE 10 MG TABLET PO (08:36)
[2024-02-21] MEDS: carvediloL 25 MG TABLET PO (08:36)
[2024-02-21] MEDS: APIXABAN 5 MG TABLET PO (08:36)
[2024-02-21] MEDS: ASPIRIN 81 MG TABLET EC PO (08:36)
[2024-02-21] MEDS: carBAMazepine 200 MG TABLET PO (08:36)
[2024-02-21] MEDS: OMEPRAZOLE 20 MG CAPSULE DR 40 MG PO (08:36)
[2024-02-21] MEDS: SODIUM CHLORIDE 0.9 % (FLUSH) 10 ML SYRINGE 5 ML IVF (08:37)
--- NOTE | 2024-02-21 10:55 | P.DS_ITS ---
DS: Providers Provider Date Seen: 02/21/24 Date of admission: 02/21/24 08:55 Primary care physician: Not a Local Provider Admitting Clinician: Courtney Yu MD Consults: 02/19/24 17:38 Consult to Occupational Therapy [CONS] Routine Comment: Reason(s) for OT Consult:: Difficulty Managing ADLs Any Restrictions?:: No Restrictions Consult to Physical Therapy [CONS] Routine Comment: Reason(s) for PT Consult:: Weakness Any Restrictions?:: No Restrictions 02/19/24 17:54 Consult to Physician [CONS] Routine Comment: Consulting Provider: Osiel Negro Has provider been notified: Yes Attending Physician on discharge: SHOSHANA Richardson, [facility] Date of Discharge: 02/21/24 DS: Diagnosis Discharge Diagnosis (1) Fever: Status: Acute Problem details: -started 02/18/24, , temperature: 103.7 -sepsis along with: lactic acid was elevated at 2.7. -source of infection is still unknown, differential diagnosis is UTI, Left wrist septic joint, less likely pneumonia - unfounded. No other specific symptomatology reported outside of achiness, weakness, left wrist pain. Report of mild shortness of breath with cough without hypoxia. No recent abdominal pain, nausea, diarrhea. -Rule out septic arthritis. Orthopedics consulted - no further workup recommend ed Empirically started on IV ceftriaxone and vancomycin. BC NGTD. UA unremarkable. CXR showing mildly increased interstitial markings consistent with pulmonary vascular congestion without consolidations. Left wrist x-ray without acute osseous injuries or abnormalities. Fevers resolved without recurrence > 24 hours prior to discharge. Discharge with 5 day course doxycycline and close follow-up with PCP. (2) Sepsis: Status: Resolved Problem details: -fever, elevated lactic acid, heart rate in the 90s -source of infection is still unknown, differential diagnosis is UTI, Left wrist septic joint, less likely pneumonia - unfounded prior to discharge 02/20/2024: Remarkably improving Sepsis resolved. Discharged with 5 day course doxycycline and close follow-up with PCP. (3) Acute pain of left wrist: Status: Acute Problem details: -wrist is nontender without erythema, swelling, or obvious wound. Demonstrates unimpaired, pain-free passive and active wrist range of motion Patient reporting pain has completely resolved. Consulted by Orthopedic surgery. Note reviewed. Arthrocentesis was not recommended given resolution of pain, full range of motion, no appearance of septic joint. Outpatient follow- up with PCP if recurs. (4) Lactic acidosis: Status: Resolved Problem details: -lactic acid 2.7, improved to 1.6 following IVF (5) CKD (chronic kidney disease): Status: Acute Problem details: Stage II, GFR 75-84, previously in the 60s Creatinine 1.0, baseline (6) Epilepsy: Status: Acute Problem details: - on carbamazepine (7) Insulin dependent diabetes mellitus: Status: Acute Problem details: -patient does not know his home medications -ordered Lantus 30 units q.h.s. and high insulin SSI and accuchecks. To resume home medications on discharge. DS: Summary Hospital Course Hospital Course: [age] year old male was admitted to the medical floor for sepsis with fever of unknown origin. Course of care and details as noted above. Sepsis resolved. No further fevers greater than 24 hours prior to discharge. Left wrist pain resolved. No obvious source of infection thus far. Patient anxious to return home, adamant to be discharged prior to dinner on day of discharge. Is discharged with 5 day course of doxycycline. Close outpatient follow-up with PCP this week for resolution, recurrence of symptoms. Remainder of chronic medical comorbidities were monitored and managed with home medications. Status at Discharge Functional status at discharge: uses cane/walker Overall status at discharge: patient is back to baseline Time Spent with Patient Time attestation: Total time spent providing and/or coordinating discharge services: Time spent: Greater than 30 minutes Exam Narrative: Exam Narrative: PHYSICAL EXAM General: Pleasant, conversant, NAD Cardiovascular: RRR Pulmonary: No dyspnea Neurological: Alert, answering questions appropriately Skin: Warm, dry. Const: Vital Signs, click to edit/add: Vital Signs - 24 hr 02/20/24 11:07 02/20/24 15:27 02/20/24 15:27 Temperature 98.3 F 98.2 F Pulse Rate [Right Pulse Oximeter] 85 83 83 Respiratory Rate 24 26 H 26 H Blood Pressure [Le ft FA] 139/50 L 144/61 H Pulse Oximetry 92 94 Oxygen Delivery Me thod Room Air Room Air 02/20/24 17:26 02/20/24 20:03 02/20/24 21:30 Temperature 98.3 F 97.5 F L Pulse Rate [Right Pulse Oximeter] 76 79 Respiratory Rate 24 24 Blood Pressure [Le ft FA] 155/62 H 159/61 H Pulse Oximetry 94 96 100 Oxygen Delivery Me thod Room Air Room Air 02/20/24 23:26 02/21/24 02:15 02/21/24 07:00 Temperature 97.5 F L Pulse Rate [Right Pulse Oximeter] 88 88 82 Respiratory Rate 22 20 Blood Pressure [Le ft FA] 160/71 H Pulse Oximetry 94 Oxygen Delivery Me thod Room Air 02/21/24 07:00 Temperature 98.8 F Pulse Rate [Right Pulse Oximeter] 82 Respiratory Rate 20 Blood Pressure [Le ft FA] 148/58 H Pulse Oximetry 94 Oxygen Delivery Me thod Room Air DS: Data Data Completed and Pending Completed studies during hospitalization: Procedures Labs on day of discharge: Labs from last 24 hours 02/21/24 02/20/24 05:52 16:01 WBC 5.71 RBC 4.44 Hgb 12.8 L Hct 37.6 MCV 85 MCH 29 MCHC 34 Plt Count 122 L ESR 71 H Sodium 135 C-Reactive Protein 20.2 H 16.6 H Preliminary micro results at discharge 02/19/24 13:05 Blood Culture - Preliminary Blood NO GROWTH AFTER 24 HOURS Imaging Left wrist x-ray: Attestation: I have reviewed the pertinent imaging results. Radiologist's impression: Bone: No acute fractures or aggressive bone lesions are identified. Joint: The radiocarpal, carpal, and carpometacarpal joints are unremarkable in appearance. Soft tissue: Unremarkable. No radiopaque foreign bodies are seen. Severe vascular calcifications are noted. IMPRESSION: 1. No acute osseous injuries or abnormalities are noted. Chest x-ray: Attestation: I have reviewed the pertinent imaging results. Radiologist's impression: There is hyperinflation and chronic interstitial change. Mildly increased interstitial markings likely representing minimal pulmonary vascular congestion. There is no pneumothorax. No dense consolidation. Cardiac silhouette is mildly prominent. The bony thorax is grossly intact. Impression: Mildly increased interstitial markings consistent with pulmonary vascular congestion. Discharge Plan Discharge Disposition: [facility] Date of Admission: 02/21/24 08:55 Attending Provider on Discharge: Eli Workman Consulting Providers: Osiel Negro Primary Care Provider: Provider,Not a Local Condition: Improved Anticipated Discharge Date/Time: 02/21/24 10:44 Discharge Medications: New doxycycline hyclate 100 mg capsule 100 mg PO BID Qty: 10 0RF Continued amlodipine 10 mg tablet 10 mg PO DAILY aripiprazole 15 mg tablet 7.5 mg PO DAILY Eliquis 5 mg tablet 5 mg PO BID aspirin 81 mg tablet,delayed release (DR/EC) 81 mg PO DAILY venlafaxine 75 mg capsule,extended release 24hr 225 mg PO DAILY torsemide 20 mg tablet 20 mg PO DAILY chlorthalidone 25 mg tablet 25 mg PO DAILY carbamazepine 200 mg tablet 200 mg PO BID pantoprazole 40 mg tablet,delayed release (DR/EC) 40 mg PO DAILY hydralazine 50 mg tablet 50 mg PO QID Patient Comments: 08,12,16,20 ezetimibe 10 mg tablet 10 mg PO DAILY pregabalin 100 mg capsule 100 mg PO QAM pregabalin 150 mg capsule 150 mg PO HS polyethylene glycol 3350 17 gram/dose powder 17 g PO DAILY Rx Instructions: AND TWICE DAILY NEEDED sennosides [senna] 8.6 mg tablet 8.6 mg PO DAILY ketoconazole 2 % shampoo 1 applic TOPICAL Q3D diphenhydramine HCl [Banophen] 50 mg capsule 50 mg PO Q6H PRN (Reason: itching) loperamide 2 mg capsule 2 mg PO Q6H PRN (Reason: loose stool) acetaminophen 500 mg tablet 500 mg PO Q6H nystatin 100,000 unit/gram powder 1 applic TOPICAL BID PRN albuterol sulfate 90 mcg/actuation HFA aerosol inhaler 1 inh INHALATION Q4H PRN (Reason: bronchospasm) icosapent ethyl [Vascepa] 1 gram capsule 2 g PO BID Humulin R U-500 (Conc) Kwikpen 500 unit/mL (3 mL) insulin pen 100 unit SUBCUT TID clotrimazole 1 % cream 1 applic topical BID Rx Instructions: GROIN,PERIAREA AND ABDOMIN fluconazole 150 mg tablet 150 mg PO TUFR@09 gatifloxacin 0.5 % drops 1 drp ophthalmic (eye) QID ketorolac 0.5 % drops 1 drp ophthalmic (eye) QID Rx Instructions: STOP DATE 08/11/22 ergocalciferol (vitamin D2) 1,250 mcg (50,000 unit) capsule 50,000 unit PO WE@09 hydrocortisone 2.5 % cream 1 applic topical BID PRNQty: 30 1RF ammonium lactate 12 % lotion 1 applic topical BID Qty: 225 0RF metoprolol succinate 200 mg tablet extended release 24 hr 200 mg PO DAILY isosorbide mononitrate 60 mg tablet extended release 24 hr 60 mg PO DAILY Ozempic 1 mg/dose (4 mg/3 mL) pen injector 4 mg subcut .weekly insulin glargine [Basaglar KwikPen U-100 Insulin] 100 unit/mL (3 mL) insulin p en 30 unit subcut BID cyclobenzaprine 10 mg tablet 10 mg PO HS PRN (Reason: muscle spasm) Qty: 20 0RF Rx Instructions: Muscle relaxant to use at bedtime if needed for back pain potassium chloride 20 mEq tablet,ER particles/crystals 20 meq PO QID rosuvastatin 40 mg tablet 40 mg PO HS carvedilol 25 mg Tablet 25 mg PO DAILY Discontinued acetaminophen [Tylenol Arthritis Pain] 650 mg tablet extended release 1,300 mg PO Q8H 14 Days Qty: 84 0RF Discharge Orders: Discharge Order (Routine); Ordered 02/21/24 Ordered By: Eli Workman Additional Instructions: Return to assisted living Resume usual cares, home medications Complete doxycycline 5 day course Outpatient follow up with PCP Activity Level: Activity as Tolerated Discharge Diet: Diabetic Follow Up Appointments: Provider,Not a Local [Primary Care Provider] - (Per records, followed in [facility]. Needs close follow up this week, 3-5 days, in clinic setting) Forms: [employer] Info Instructions Admit to: Assisted Living Discharge Potential: Poor Length of Stay: >90 days Can use facility standing orders?: Yes Code Status: Full Code TEDs: Bilateral Knee Rehab Potential: Fair Oxygen: No Urinary Catheter: No Orders are good >30 days: No Signature: Eli Workman, MMS, PA-[facility] Hospitalist
--- NOTE | 2024-02-21 11:33 | NUTR.NU ---
RDN with diet education related to diabetic and heart healthy diet order. RDN attempted to visit with patient x3, however patient was not available. Patient discharged.
--- NOTE | 2024-02-21 12:33 | PC.SOCIAL ---
Discharge planning: Attempted to reach a nurse at the [facility], where pt resides regarding plans to discharge him back today. Left multiple messages at numbers for staff, nursing, DON, and admitting at [phone]. Called pt's guardian, Lluvia Sierra who confirmed we have the same phone numbers for the facility that she has. Jayson provided an email address for the nurse: [email or web address] emailed discharge orders and requested she call back to confirm receipt and schedule a discharge time. Awaiting call back from facility at this time. Per nurse, pt has requested to discharge back to the facility because there is someone there all the time and they don;t answer the phone. clerical warehouse worker called guardian and left message asking if she agrees for pt to return by non-emergency ambulance without confirmation from the staff at [facility] that they are aware he is returning. Awaiting call back from guardian. clerical warehouse worker to follow up as needed.
--- NOTE | 2024-02-21 14:48 | PC.NURSE ---
Discharge: Patient alert and oriented x4, SBA to BR. Up to chair for meals. Patient's VSS, afebrile this shift. Patient's IV removed intact. Belongings sheet and discharge instructions signed. Patient verbalized understanding of discharge. Patient discharged at 1351 via non emergent transport. Guardian notified, and [facility] notified.
== END 2024-02-21 13:51 | DRG 872 ==
LOC: ED 13:02 → MEDSURG 16:26
PROVIDERS: Internal Medicine; Admitting Provider Student in an Organized Health Care Education/Training Program; Emergency Provider Emergency Medicine; Visit Provider Student in an Organized Health Care Education/Training Program
DX: A41.9 Sepsis, unspecified organism (principal); E87.21 Acute metabolic acidosis; Z68.44 Body mass index [BMI] 60.0-69.9, adult; I82.4Z3 Acute embolism and thrombosis of unspecified deep veins of distal lower extremity, bilateral; M25.532 Pain in left wrist; N18.2 Chronic kidney disease, stage 2 (mild); E11.22 Type 2 diabetes mellitus with diabetic chronic kidney disease; E11.65 Type 2 diabetes mellitus with hyperglycemia; I12.9 Hypertensive chronic kidney disease with stage 1 through stage 4 chronic kidney disease, or unspecified chronic kidney disease; Z79.85 Long-term (current) use of injectable non-insulin antidiabetic drugs; G40.909 Epilepsy, unspecified, not intractable, without status epilepticus; Z79.4 Long term (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 insulin; I25.10 Atherosclerotic heart disease of native coronary artery without angina pectoris; Z86.718 Personal history of other venous thrombosis and embolism; Z79.01 Long term (current) use of anticoagulants; E66.01 Morbid (severe) obesity due to excess calories; E78.1 Pure hyperglyceridemia; G47.33 Obstructive sleep apnea (adult) (pediatric); Z99.89 Dependence on other enabling machines and devices; E88.810 Metabolic syndrome; D63.1 Anemia in chronic kidney disease; M48.10 Ankylosing hyperostosis [Forestier], site unspecified; G62.9 Polyneuropathy, unspecified; F81.9 Developmental disorder of scholastic skills, unspecified; G47.00 Insomnia, unspecified; M10.9 Gout, unspecified; F32.A Depression, unspecified; E78.00 Pure hypercholesterolemia, unspecified
CPT/HCPCS: 36415; 51701; 71045; 73110; 80048; 80053; 81001; 82962; 83605; 83735; 84145; 84295; 84484; 85025; 85027; 85651; 86140; 87040; 87081; 87631; 93005; 97110; 97161; 97165; 97535; 99284; 99285; G0378; A9270; J0696; J1815; J3372; J7030; J7050

== ENCOUNTER 2024-02-21 13:46 | Outpatient (CLI) | payer MEDICARE, MEDICAID, SELFPAY ==
--- OUTSIDE RECORDS SUMMARY | 2024-02-24 23:21 | XMS_ITS | Encounter Summary ---
Author Organization [facility] Address [address] [place] [address] Care Team Providers Care Proof Plate Maker Name Role Phone Services, [facility] Physician Primary Care Provi sadia [...] Choose not to disclose 2021 8:14 AM PESTICIDE CONTROL INSPECTOR documented as of this encounter Plan of Treatment Upcoming Encounters Date Type Department Care Team (Late st Contact Info) Description 02/25/2024 2:00 PM CDT Office Visit [facility] [address] [place] [phone] Kathryn Soto APRN SOCIOLOGY RESEARCH ASSISTANT [address] [place] [address] 03/08/2024 PRE VISIT [facility] Colon and Rectal Surgery Clinic [place] [address] [phone] Mtailde Pérez PA-C [address] [place] [address] Previsit 03/08/2024 12:00 PM CDT Office Visit [facility] Colon and Rectal Surgery Clinic [address] [phone] Reinaldo Beltran PA-C [facility] [address] [facility] [address] [facility] [address] [place] [address] Matilde Pérez PA-C [address] [place] [address] documented as of this encounter Visit Diagnoses Not on filedocumented in this encounter Care Teams Proof Plate Maker Relationship Specialty Start Date End Date Services, [facility] Physician [address] [place] [address], [address] [address] PCP - General 05/22/21 Prince Tobar MD [address] [place] [address] Cardiovascular Disease 03/26/22 Prince Tobar MD [address] [place] [address] Assigned Heart and Vascular Provider 05/30/22 documented as of this encounter
--- OUTSIDE RECORDS SUMMARY | 2024-02-24 23:21 | XMS_ITS | Clinical Summary ---
Author Organization [facility] Address [address] [place] [address] Care Team Providers Care President Trust Company Name Role Phone Services, [facility] Physician Primary Care Provi sadia Prince Tobar MD Unavailable Prince Tobar MD Unavailable Matilde Pérez PA-C Unavailable Allergies Active Allergy Reactions Criticality Noted [...] daily Active cholecalciferol (VITAMIN D3) 1250 mcg (53104 units) capsule Take 1,250 mcg by mouth every 7 days on Wednesdays. Active venlafaxine (EFFEXOR-XR) 75 MG 24 hr capsule Take 225 mg by mouth daily Active hydrALAZINE (APRESOLINE) 50 MG tablet Take 50 mg by mouth 4 times daily Active polyethylene glycol (MIRALAX) 17 GM/Dose powder Take 17 g by mouth daily Active nystatin (MYCOSTATIN) 128662 UNIT/GM external powder Apply topically 2 times [...] [facility] Emergency Dept [address] [place] [address] Agustin Cesar MD Anal fissure; External hemorrhoids Discharge Disposition: Home or Self Care 12/28/2023 Travel from Last 3 Months Immunizations Name Administration Dates Next Due COVID-19 MONOVALENT 12+ (Pfizer) 06/25/2020,05/17 B2e1-82 Novel Flu 05/07/2009 Hepatitis B, Adult 02/16/2014,10/12/2013, [...] Choose not to disclose 2021 8:14 AM DIRECTOR SOCIAL SERVICE Last Filed Vital Signs Vital Sign Reading [...] Description 02/25/2024 2:00 PM CDT Office Visit [facility] [address] [place] [phone] Kathryn Soto, CHEMICAL WORKER TONGUE AND GROOVE MACHINE SETTER [address] [place] [address] 03/08/2024 PRE VISIT [facility] Colon and Rectal Surgery Clinic [address] [phone] Matilde Pérez PA-C [address] [place] [phone] Previsit 03/08/2024 12:00 PM CDT Office Visit [facility] Colon and Rectal Surgery Clinic [address] [phone] Reinaldo Beltran PA-C [facility] [place] [address] Matilde Pérez PA-C [address] [place] [phone] Health Maintenance Due Date Last Done Comments [...] without heart failure Atherosclerotic heart disease of [place] coronary artery without angina pectoris Body mass [...] MD LAB - BLOOD ORD ERABLES LABORATORY [facility] Acute Care Lab [address] Lab (1st floor, no room number) [place] [address] * Adult Type and Screen (12/28/2023 6:41 PM CDT) ABO/RH(D) A POS 12/28/2023 6:28 PM CDT RH BLOOD BANK Antibody Screen Negative Negative 12/28/2023 6:28 PM CDT RH BLOOD BANK SPECIMEN EXPIRATION DATE [id number] 12/28/2023 6:28 PM CDT RH BLOOD BANK Blood STRUCTURE OF RIGHT UPPER LIMB / Unknown Venipuncture / Unknown 12/28/2023 6:41 PM CDT 12/28/2023 6:46 PM CDT Agustin Cesar MD LAB - BLOOD BAN K TEST ORDER RH BLOOD BANK [address] [place] [address] * INR (12/28/2023 6:41 PM CDT) INR 1.01 0.85 - 1.15 12/28/2023 7:00 PM CDT RH LABORATORY Blood STRUCTURE OF RIGHT UPPER LIMB / Unknown Venipuncture / Unknown 12/28/2023 6:41 PM CDT 12/28/2023 6:46 PM CDT Agustin Cesar MD LAB - BLOOD ORD ERABLES [facility] Acute Care Lab [address] Lab (1st floor, no room number) [place] [address] * Partial thromboplastin time (12/28/2023 6:41 PM CDT) aPTT 28 22 - 38 Seconds 12/28/2023 7:00 PM CDT RH LABORATORY Blood STRUCTURE OF RIGHT UPPER LIMB / Unknown Venipuncture / Unknown 12/28/2023 6:41 PM CDT 12/28/2023 6:46 PM CDT Agustin Cesar MD LAB - BLOOD ORD ASHISH Performing Organization Address City/[facility]/ZIP Co de Phone Number [facility] Acute Care Lab [address] Lab (1st floor, no room number) [place] [address] * (ABNORMAL) Comprehensive metabolic panel (12/28/2023 [...] LAB - BLOOD ORD ERABLES RH LABORATORY [facility] Acute Care Lab [address] Lab (1st floor, no room number) [place] [address], [facility] * (ABNORMAL) Hemoglobin A1c (10/15/2023 3:13 PM CDT) Hemoglobin A1C 10.8(H) <5.7 % 10/15/2023 4:57 PM CDT RH LABORATORY Comment: Normal <5.7% Prediabetes 5.7-6.4% ?? Diabetes 6.5% or higher Note: Adopted from ADA consensus guidelines. Blood BLOOD SPECIMEN / Unknown Client Draw / Unknown 10/15/2023 3:13 PM CDT 10/15/2023 4:25 PM CDT [facility] LAB - BLOOD ORDERABL ES [facility] Acute Care Lab [address] [facility] Lab (1st floor, no room number) [place] [address], [facility] from Last 3 Months or Most Recently Relevant to Health Maintenance Advance Directives For more information, please contact: [phone] Documents on File Type Date Recorded Patient Hair Spinning Machine Operator Expl anation Advance Directives and Living Will [...] angiee nt/ legal decision maker Care Teams President Trust Company Relationship Specialty Start Date End Date Services, [facility] Physician [address] [facility] [address] [place] [address] PCP - General 05/22/21 Prince Tobar MD [address] [place] [address] Cardiovascular Disease 03/26/22 Prince Tobar MD [address] [place] [address] Assigned Heart and Vascular Provider 05/30/22 Matilde Pérez PA-C [address] [place] [address] Physician Braiding Machine Tender Physician Braiding Machine Tender - Surgical 12/30/23
--- OUTSIDE RECORDS SUMMARY | 2024-02-24 23:21 | XMS_ITS | Clinical Summary ---
Author Organization [facility] Address [place], [place] [address] Care Team Providers Care Telegraph Repeater Mechanic Name Role Phone Alan Lopez MD Unavailable [phone] Nishant Watson MD Unavailable Pcp, No Primary [...] type 2 diabetes mellitus (HC),Chronic edema JOBST #[id number] LRG FULL CALF KNEE BLACK 20-30 COMPRESSION [...] mg extended release tablet 24 HourIndications:CAD in [place] artery Take 1 tablet by mouth once [...] call MD 0 04/01/2020 Active Insulin Safety [place], Disp, (NOVOFINE AUTOCOVER) 30 gauge x /3Indications:Cecelia [...] at 10 am and no showed. RN Epic [facility], Juanita Yoo, notified and she will attempt [...] No, referral made to Advance Care Plan Land Surveyor Manager. Patient has identified Specific Treatment Preferences: No Sophia Méndez RN .................... 07/06/2011 2:30 PM] Specific limits to treatment preferences NOT identified: ASSUME FULL TREATMENT. Assessment & Plan (05/25/2012 12:51 PM COOLING TOWER OPERATOR): Advance Care Planning: Disease-specific Session Leonid Leahy is a [facility] patient. His PCP is Leandra Limon at [facility]. Advance care planning discussions were completed with Leonid. He identified his sister, Brittany Suggs, as his healthcare agent. Brittany was not present for ACP session. Understanding of Illness and Disease [place]: Leonid identifies his medical condition as what [...] to live well: Daily visit to local [employer] for a pop and to visit and catch up in the news with locals. Leonid obed with serious challenges in his life: Support of his sister, only a phone call away. Helps manage [facility] services. Leonid identifies the following [...] and primary care provider. Hard Choices for [place] [employer] booklet was sent to Leonid and his health care agent for review. Leonid requested all information be mailed to his sister and automobile and property underwriter to place call to sister to explain process. Leonid identified the following concerns during his advance care planning session: needing assistance at home to ensure he is managing his medications and treatments to keep going as is and stabilizing. Is followed by Clinic Russian Language Professor for needed services. Questions identified for his primary care provider: none Documents addressed during this advance care planning session: Health Care Directive completed and scanned into medical record. Statement of Treatment Preferences for advanced illness completed and scanned into the medical record. Recommendations/Plan: Leonid to review Advance Care Plan with Leonid's healthcare agent. Sign Language Translator will be contacting Leonid's [facility] to explain services rendered, Leonid would benefit from: Home Care and/or Hospice when / if appropriate. [facility] services involved, [facility] of medical asistance. Care Management- [...] 2:27 PM Sophia Méndez RN RN Clinic Russian Language Professor - [facility] [phone] Vitamin D deficiency 01/06/2011 011 Neuropathy 09/25/2010 [...] 176.9 kg (390 lb) 07/14/2022 6:10 PM COOLING TOWER OPERATOR Height 167.6 cm (5' 6) 07/14/2022 6:10 PM COOLING TOWER OPERATOR Body Mass Index 62.95 07/14/2022 6:10 PM COOLING TOWER OPERATOR Plan of Treatment Health Maintenance Due [...] Kay García Medical Devices Implanted Type Area Section Weaver Device Identifier Shelf Expiration Date Model / Serial / Lot Iol Concho +20 Tecnis Zcb00 - [id number] Implanted:Qty: 1 on 07/15/2022 by Tanner Fuentes MD at [facility] Left: Eye [employer] 06/24/2025 ZCB00 20.0 / [id number] / Iol Concho +20 Tecnis Zcb00 - [id number] Implanted:Qty: 1 on 08/19/2022 by Tanner Fuentes MD at [facility] Right: Eye [employer] 06/24/2025 ZCB00 20.0 / [id number] / Procedures Procedure Name Priority Date/Time Associated Diagnosis Comments LIPID PANEL Routine 03/13/2019 2:31 PM CDT Essential hypertriglyceridemia from Last 3 Months or Most Recently Relevant to Health Maintenance Results * (ABNORMAL) LIPID PANEL (03/13/2019 2:31 PM CDT) [facility] CHOLESTEROL,TOTAL 193 100 - 199 mg/dL 03/13/2019 9:25 PM CDT [facility] TR[facility] LABORATORY TRIGLYCERIDES 715(H) <150 mg/dL 03/13/2019 9:25 PM CDT [facility] HDL CHOLESTEROL 29(L) >40 mg/dL 9 9:25 PM CDT [facility] TRAL LAB[facility] NON-HDL CHOLESTEROL 164(H) <145 mg/dl 03/13/2019 9:25 PM CDT [facility] CHOL/HDL RATIO 6.66(H) <4.50 03/13/2019 9:25 PM CDT [facility]OR[facility] LDL CHOLESTEROL 9 9:25 PM CDT [facility] TR[facility] Comment:Invalid LDL when Tri g >400. PROVIDER ORDERED STATUS RANDOM 03/13/2019 9:25 PM CDT [facility] TR[facility] Blood BLOOD SPECIMEN / Unknown Venipuncture / Unknown 03/13/2019 2:31 PM CDT 03/13/2019 2:31 PM CDT Suellen Sosa MD [facility] [address] [place] [address], from Last 3 Months or Most Recently Relevant to Health Maintenance Advance Directives Documents on File Type Date Recorded Patient Property Management Assistant Eduardo smiley POL 09/26/2014 3:45 PM AH [...] 9:30 PM 03/19/2009 6:17 PM Care Teams Telegraph Repeater Mechanic Relationship Specialty Start Date End Date Pcp, No . PCP - General 07/15/22 Alan Lopez MD Internal Medicine Internal Medicine 11/20/10 Nishant Watson MD [address] [place] [address] Endocrinology 08/15/13
--- OUTSIDE RECORDS SUMMARY | 2024-02-24 23:21 | XMS_ITS | Referral Summary ---
Author Organization [facility] Address [address] [place] [address] Care Team Providers Care Msws Name Role Phone Services, [facility] Physician Primary Care Provi sadia Prince Tobar MD Unavailable Prince Tobar MD Unavailable Matilde Pérez PA-C Unavailable [phone] Encounters Date Type Department Care Team Description 12/28/2023 6:08 PM CDT - 12/29/2023 12:59 AM T Emergency [facility] Emergency Dept [address] [place] [address] Agustin Cesar MD Anal fissure; External hemorrhoids [...] daily Active cholecalciferol (VITAMIN D3) 1250 mcg (95229 units) capsule Take 1,250 mcg by mouth every 7 days on Wednesdays. Active venlafaxine (EFFEXOR-XR) 75 MG 24 hr capsule Take 225 mg by mouth daily Active hydrALAZINE (APRESOLINE) 50 MG tablet Take 50 mg by mouth 4 times daily Active polyethylene glycol (MIRALAX) 17 GM/Dose powder Take 17 g by mouth daily Active nystatin (MYCOSTATIN) 207623 UNIT/GM external powder Apply topically 2 times [...] Next Due COVID-19 MONOVALENT 12+ (Pfizer) 06/25/2020,05/17 [id number] Novel Flu 05/07/2009 Hepatitis B, Adult 02/16/2014,10/12/2013, [...] Choose not to disclose 2021 8:14 AM PHYSICS TECHNICAL OFFICER Last Filed Vital Signs Vital Sign Reading [...] Description 02/25/2024 2:00 PM CDT Office Visit [facility] [address] [place] [address] Kathryn Soto, AVIATION SAFETY EQUIPMENT TECHNICIAN CLEAN ROOM ASSEMBLER [address] [place] [address] 03/08/[address] [facility] [address] [address] Matilde Pérez PA-C [address] [place] [phone] Previsit 03/08/2024 12:00 PM CDT Office Visit [facility] [address] [address] Reinaldo Beltran PA-C Emergency Phys[facility] [facility] [place] [address] Matilde Pérez PA-C [address] [place] [address] Procedures Procedure Name Priority Date/Time Associated [...] without heart failure Atherosclerotic heart disease of [place] coronary artery without angina pectoris Body mass [...] MD LAB - BLOOD ORD ERABLES LABORATORY [facility] Acute Care Lab [address] Lab (1st floor, no room number) [place] [address], [facility] * Adult Type and Screen (12/28/2023 6:41 PM CDT) ABO/RH(D) A POS 12/28/2023 6:28 PM CDT RH BLOOD BANK Antibody Screen Negative Negative 12/28/2023 6:28 PM CDT RH BLOOD BANK SPECIMEN EXPIRATION DATE [id number] 12/28/2023 6:28 PM CDT RH BLOOD BANK Blood STRUCTURE OF RIGHT UPPER LIMB / Unknown Venipuncture / Unknown 12/28/2023 6:41 PM CDT 12/28/2023 6:46 PM CDT Agustin Cesar MD LAB - BLOOD BAN K TEST ORDER RH BLOOD BANK [address] [place] [address], [facility] * INR (12/28/2023 6:41 PM CDT) INR 1.01 0.85 - 1.15 12/28/2023 7:00 PM CDT [facility] LABORATORY Blood STRUCTURE OF RIGHT UPPER LIMB / Unknown Venipuncture / Unknown 12/28/2023 6:41 PM CDT 12/28/2023 6:46 PM CDT Agustin Cesar MD LAB - BLOOD ORD ERABLES Performing Organization Address City[facility]/ZIP Co de Phone Number [facility] [address] Lab (1st floor, no room number) [place] [phone] [place] [address] * Partial thromboplastin time (12/28/2023 6:41 PM CDT) Pathologist [facility] aPTT 28 22 - 38 Seconds 12/28/2023 7:00 PM CDT LABORATORY Blood STRUCTURE OF RIGHT UPPER LIMB / Unknown Venipuncture / Unknown 12/28/2023 6:41 PM CDT 12/28/2023 6:46 PM CDT Agustin Cesar MD LAB - BLOOD ORD ERABLES Performing Organization Address City[facility] Co de Phone Number [facility] [address] Lab (1st floor, no room number) [address] * (ABNORMAL) Comprehensive metabolic panel (12/28/2023 [...] LAB - BLOOD ORD ERABLES [facility] LABORATORY [facility] Acute Care Lab [address] [facility] Lab (1st floor, no room number) [place] [address], [facility] * (ABNORMAL) Hemoglobin A1c (10/15/2023 3:13 PM CDT) Hemoglobin A1C 10.8(H) <5.7 % 10/15/2023 4:57 PM CDT [facility] LABORATORY Comment: Normal <5.7% Prediabetes 5.7-6.4% ?? Diabetes 6.5% or higher Note: Adopted from ADA consensus guidelines. Blood BLOOD SPECIMEN / Unknown Client Draw / Unknown 10/15/2023 3:13 PM CDT 10/15/2023 4:25 PM CDT [facility] LAB - BLOOD ORDERABL ES LABORATORY [facility] [address] [facility] (1st floor, no room number) [place] [address], [facility] from Last 3 Months or Most Recently Relevant to Health Maintenance Advance Directives For more information, please contact: [phone] Documents on File Type Date Recorded Patient Federal Air Marshal Expl anation Advance Directives and Living Will [...] angiee nt/ legal decision maker Care Teams Msws Relationship Specialty Start Date End Date Services, [facility] Physician [address] [place] [address], [address] [address] PCP - General 05/22/21 Prince Tobar MD [address] [place] [address] Cardiovascular Disease 03/26/22 Prince Tobar MD [address] [place] [address] Assigned Heart and Vascular Provider 05/30/22 Matilde Pérez PA-C [address] [place] [address] [phone] Physician School Curriculum Developer Physician School Curriculum Developer - Surgical 12/30/23
--- OUTSIDE RECORDS SUMMARY | 2024-02-24 23:21 | XMS_ITS | Clinical Summary ---
Author Organization [facility] Address [address] [place] [address] Phone Care Team Providers Care Ham Passer Name Role Phone Mellisa Shirley PA-C Primary Care Provider [phone] Allergies Active Allergy Reactions Criticality Noted Date [...] 05/26/2021 Active cholecalciferol (VITAMIN D-3) 1.25 MG (17280 UT) capsule Take 1,250 mcg by mouth [...] age to complete this topic Care Teams Ham Passer Relationship Specialty Start Date End Date Mellisa Shirley PA-C PCP - General Physician Medical Housekeeper 08/31/22
--- OUTSIDE RECORDS SUMMARY | 2024-02-24 23:21 | XMS_ITS | Encounter Summary ---
Author Organization [facility] Address [address] [place] [address] Care Team Providers Care Senior Policy Associate Name Role Phone Services, [facility] Physician Primary Care Provi sadia Prince Tobar MD Unavailable [phone] Prince Tobar MD Unavailable [phone] Reason for Referral * Consultation (Priority: 1-2 Weeks) - Pending Review Specialty Diagnoses / Procedures Referred By Contjohnny dalal Referred To Contact Colon and Rectal Surgery Diagnoses Anal fissure External hemorrhoids Rienaldo Beltran PA-C Emergency [facility] [address] [place] [address] Referral ID Status Reason Start Date Expiration Date V isits Requested Visits Authorized [id number] Pending Review 12/28/2023 12/27/2024 1 1 Question Answer Reason for Referral: Anal Fissure Special Concerns: Other My Clinical Question Is: Anal fissure, taking Apixaban Scheduling Instructions: [facility] will call you to coordinate care as prescribed your provider. If you don? t hear from a labor union business representative within 2 business days, please call . Comments Please be aware that coverage of these services is subject to the terms and limitations of your health insurance plan. Call member services at your health plan with any benefit or coverage questions. [facility] will call you to coordinate care as prescribed your provider. If you don? t hear from a labor union business representative within 2 business days, please call . 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 The bleeding you noted on [...] mouth daily cholecalciferol (VITAMIN D3) 1250 mcg (72165 units) capsule Take 1,250 mcg by mouth [...] 7 days 4 g 12/28/2023 nystatin (MYCOSTATIN) 937484 UNIT/GM external powder Apply topically 2 times [...] MG tablet cholecalciferol (VITAMIN D3) 1250 mcg (23252 units) capsule clotrimazole (LOTRIMIN) 1 % external [...] 200 MG 24 hr tablet nystatin (MYCOSTATIN) 940969 UNIT/GM external powder pantoprazole (PROTONIX) 40 MG [...] POS Antibody Screen Negative SPECIMEN EXPIRATION DATE [id number] ABO/RH TYPE AND SCREEN Emergency Department Course [...] 1. Anal fissure K60.2 Adult Colorectal Surgery Position Clerk Referral 2. External hemorrhoids K64.4 Adult Colorectal Surgery Position Clerk Referral Discharge Medications: New Prescriptions HYDROCORTISONE, PERIANAL, [...] yesterday, he went to a clinic in [place], he is unsure of what was done [...] MG tablet cholecalciferol (VITAMIN D3) 1250 mcg (75457 units) capsule clotrimazole (LOTRIMIN) 1 % external [...] 200 MG 24 hr tablet nystatin (MYCOSTATIN) 391552 UNIT/GM external powder pantoprazole (PROTONIX) 40 MG [...] POS Antibody Screen Negative SPECIMEN EXPIRATION DATE [id number] ABO/RH TYPE AND SCREEN Imaging No orders to display Independent Interpretation None ED Course Medications Administered Medications - No data to display Procedures Procedures Discussion of Management Staffed with Dr. Cesar ED Course ED Course as of 12/28/231936Dec 28, 20231838 I evaluated and examined the patient 1902 Rectal exam with RN at bedside Additional Documentation None Medical Decision Making / Diagnosis [facility] Diagnoses: None MIPS None [facility] Leonid Leahy is a 63 year [...] 1. Anal fissure K60.2 Adult Colorectal Surgery Position Clerk Referral 2. External hemorrhoids K64.4 Adult Colorectal Surgery Position Clerk Referral Discharge Medications New Prescriptions HYDROCORTISONE, PERIANAL, [...] Pt comes from assisted living facility in [place]. * Tamiko Monzon RN - 12/28/2023 6:08 PM CDT Bed: ED01 Expected date: Expected time: Means of arrival: Comments: [id number] documented in this encounter Plan of Treatment Upcoming Encounters Date Type Department Care Team (Late st Contact Info) Description 02/25/2024 2:00 PM CDT Office Visit M [address] [place] [phone] Kathryn Soto APRN [employer]TON CHOPPER [address] [place] [address] 03/08/2024 PRE VISIT M [facility] Colon and Rectal Surgery Clinic [address] 4th [place] [address] Matilde Pérez PA-C [address] [place] [phone] Previsit 03/08/2024 12:00 PM CDT Office Visit [facility] Colon and Rectal Surgery [facility] [address] [place] [address] 4th [place] [phone] Reinaldo Beltran PA-C Emergency [facility] [address] [place] [phone] Matilde Pérez PA-C [address] [place] [address] Scheduled Referrals Name Type Priority Associated Diagnoses Orde r Schedule Adult Colorectal Surgery Position Clerk Referral Referral Priority: 1-2 Weeks Anal fissure [...] CDT RH BLOOD BANK SPECIMEN EXPIRATION DATE [id number] 12/28/2023 6:28 PM CDT RH BLOOD BANK Blood STRUCTURE OF RIGHT UPPER LIMB / Unknown Venipuncture / Unknown 12/28/2023 6:41 PM CDT 12/28/2023 6:46 PM CDT Agustin eCsar MD LAB - BLOOD BAN K TEST ORDER RH BLOOD BANK [address] [place] [address] * (ABNORMAL) CBC with platelets [...] MD LAB - BLOOD ORD ERABLES LABORATORY [facility] Acute Care Lab [address] [facility] Lab (1st floor, no room number) [place] [address], [facility] * (ABNORMAL) Comprehensive metabolic panel [...] MD LAB - BLOOD ORD ERABLES LABORATORY [facility] Lab [address] Lab (1st floor, no room number) [address] * Partial thromboplastin time (12/28/2023 6:41 PM CDT) aPTT 28 22 - 38 Seconds 12/28/2023 7:00 PM CDT RH LABORATORY Blood STRUCTURE OF RIGHT UPPER LIMB / Unknown Venipuncture / Unknown 12/28/2023 6:41 PM CDT 12/28/2023 6:46 PM CDT Agustin Cesar MD LAB - BLOOD ORD ERABLES [facility] Care Lab [address] Lab (1st floor, no room number) [address] * INR (12/28/2023 6:41 PM CDT) INR 1.01 0.85 - 1.15 12/28/2023 7:00 PM CDT RH LABORATORY Blood STRUCTURE OF RIGHT UPPER LIMB / Unknown Venipuncture / Unknown 12/28/2023 6:41 PM CDT 12/28/2023 6:46 PM CDT Agustin Cesar MD LAB - BLOOD ORD ERABLES [facility] Care Lab [address] Lab (1st floor, no room number) [address] documented in this encounter Visit Diagnoses Diagnosis Anal fissure External hemorrhoids External hemorrhoids without mention of complication documented in this encounter Care Teams Senior Policy Associate Relationship Specialty Start Date End Date Services, [facility] Physician [address] [place] [address], [address] [address] PCP - General 05/22/21 Prince Tobar MD [address] [place] [address] Cardiovascular Disease 03/26/22 Prince Tobar MD [address] [place] [address] Assigned Heart and Vascular Provider 05/30/22 documented as of this encounter
== END 2024-02-21 13:47 | disposition home or self-care (01) ==
LOC: AMB 02-24 23:01
PROVIDERS: Visit Provider Emergency Medicine
DX: R50.9 Fever, unspecified (principal); R53.1 Weakness
CPT/HCPCS: A0425; A0428

== ENCOUNTER 2024-03-03 10:02 | Outpatient (CLI) | payer MEDICARE, MEDICAID, SELFPAY ==
--- OUTSIDE RECORDS SUMMARY | 2024-03-09 00:42 | XMS_ITS | CCD ---
Author Name Cecilio Durham ie Address [address] [place] [address] Phone Organization [facility] Phone Care Team Providers Care Tax Credit Leasing Consultant Name Role Phone Arpit WATER CONSERVATION SPECIALIST-CHarrison Primary Care Provider Leona vailable Arpit ARLENParker Harrison Chronic Care Management U navailable Summary Purpose DataExchange Insurance Providers Payer name Policy type / Coverage type Covered republican ID Effective Begin Date Effective End Date [place] Part B [id number] Unknown Unknown [place] Part B [id number] Unknown Unknown Family history Sister Brittany Suggs Diagnosis Age At Onset No Family Disease Entered N/A Runs in the family Diagnosis Age At Onset No Known Diseases N/A Sister Blanka Mcduffie Diagnosis Age At Onset No Family Disease Entered N/A Social History Social History Element Codes Description Effec tive Dates Tobacco history SNOMED CT: 631889628 Never smoker 01/16 Sexually Active? Unknown No [...] Unknown Residential 09/03/[address]: 716184821 No Alcohol Consum ption 09/02/2020 Allergies, Adverse Reactions, Alerts Substance Reaction Codes Entered Date Inactivated Date Status * NO KNOWN FOOD ALLERGIES Unknown 07/13/2023 No Inactive Date Active LISINOPRIL RxNorm: 40908 02/12/2020 No Inactive Da te Active Metformin [...] ICD-10: Z6 8.44 ICD-9: V85.44 03/07/2024 Active Diabetic neuropathy associat ed with type 2 diabetes mellitus ICD-10: E11.40 ICD-9: 250.60 03/07/2024 Active Low back pain ICD-10: M54.50 ICD-9: 724.2 03/07/2024 Active PVD (peripheral vascular disease) ICD-10 : I73.9 ICD-9: 443.9 03/07/2024 Active Type 2 diabetes mellitus wit h diabetic polyneuropathy, with long-term current use of insulin ICD-10: E11.42 ICD-9: 250.60 03/07/2024 Active Advanced care planning - to [...] transit ICD-10: K59.01 ICD-9: 564.01 02/08/2024 Active History of anemia due to [...] disability ICD-10: F81.9 ICD-9: 315.2 02/08/2024 Active Lower extremity edema ICD-10: R60.0 ICD-9: 782.3 02/08/2024 Active Major depression, recurrent ICD-10: F33. 9 ICD-9: 296.30 02/08/2024 Active Onychogryposis ICD-10: L60.2 ICD-9: 703.8 02/08/2024 Active Pressure ulcer of left calf, unstageable ICD-10: L89.890 ICD-9: 707.09 02/08/2024 Active Reducible umbilical hernia ICD-10: K42.9 ICD-9: 553.1 02/08/2024 Active Seizure disorder ICD-10: G40.909 ICD-9: 345.90 02/08/2024 Active Stage 2 chronic kidney disea se due to type 2 diabetes mellitus ICD-10: E11.22 ICD-9: 250.40 02/08/2024 Active Vitamin D deficiency ICD-10: E55.9 [...] 09/07/2023 Resolved Coronary artery disease invo lving [place] coronary artery of [place] heart, angina presence unspecified ICD-10: I25.10 ICD-9: [...] ICD-10: Z23 ICD-9: V03.89 02/10/2022 Resolved terminal carman (current) use of insulin ICD-10: Z79.4 02/10 [...] Use 1 needle as directed TID 03/08/20 025 Active Accu-Chek Guide Glucose Meter RxNorm: Use 1 Miscellaneous UD as directed Use glucose meter to monitor blood glucose 3 times daily. Dx:E11.42 03/08/20 024 Inactive Accu-Chek Guide test strips RxNorm: Use 1 Test Strip TID to test Blood glucose 03/08/20 Active ok to substitute with any covered alternative test strip Accu-Chek Guide test strips RxNorm: Use 1 Test Strip TID to test BS 03/08/20 Inactive ok to substitute with any covered alternative test strip Basaglar KwikPen U-100 Insulin 100 unit/mL (3 mL) subcutaneous RxNorm: 7738238 Inject 40 Unit(s) Subcutaneous BID 03/07/20 Active Please dispense one month supply. Humulin R U-500 (Concentrated) Insulin 500 unit/mL subcutaneous soln RxNorm: 112066 Inject 100 Unit(s) Subcutaneous AC before meals [...] PRN) to be use with new Accu [place] meter 03/04/20 Inactive ok to substitute with any covered alternative test strip nystatin 100,000 unit/gram topical powder RxNorm: 370314 Apply 1 Application Topical BID as needed abdominal/breast /groin folds 03/02/20 Active FreeStyle Chema 2 Sensor kit RxNorm: Use UD as directed 03/02/20 Active FreeStyle Chema 2 Sensor kit RxNorm: Use UD as directed 03/02/20 Inactive Pen Needle 30 gauge x 5/16 RxNorm: Pen(s) Use 1 needle as directed TID 03/02/20 Inactive Accu-Chek Guide test strips RxNorm: Use 1 Test Strip QID 03/02/20 024 Inactive ok to substitute with any covered alternative test strip Lancets,Thin 28 gauge RxNorm: Use 1 as directed QID lancet 03/02/20 024 Inactive Pen Needle 30 gauge x 5/16 RxNorm: Pen(s) Use 1 needle as directed TID 03/02/20 24 Inactive Humulin R U-500 (Concentrated) Insulin 500 unit/mL subcutaneous soln RxNorm: 383100 Inject 100 Unit(s) Subcutaneous TID 02/17/20 24 024 Inactive Humulin R U-500 (Concentrated) Insulin 500 unit/mL subcutaneous soln RxNorm: 279382 Inject 100 Unit(s) Subcutaneous TID 02/10/20 24 024 Inactive Basaglar KwikPen U-100 Insulin 100 unit/mL (3 mL) subcutaneous RxNorm: 8935247 Inject 30 Unit(s) Subcutaneous BID 02/10/20 024 Inactive Please dispense one month supply. pregabalin 100 mg capsule RxNorm: 076131 Take 1 Capsule(s) Oral QAM every morning 02/07/20 24 024 Active isosorbide mononitrate ER 60 mg tablet,extended release 24 hr RxNorm: 629047 Take 1 Tablet(s) Oral QD 02/01/20 24 025 Active aripiprazole 15 mg tablet RxNorm: 503448 Take 1/2 Tablet(s) Oral QD 02/01/20 24 025 Active torsemide 20 mg tablet RxNorm: 800363 1 TAB ORALLY DAILY (DX: EDEMA) 01/27/20 No Stop Date Active potassium chloride ER 20 mEq tablet,extended release(part/cryst) RxNorm: 5254653 2 TABS (40MEQ) ORALLY TWICE DAILY (DX: HYPOKALEMIA) 01/27/20 No Stop Date Active cephalexin 500 mg capsule RxNorm: 821384 Take 1 Capsule(s) Oral QID 12/17/19 24 024 Inactive cephalexin 500 mg capsule RxNorm: 613299 Take 1 Capsule(s) Oral QID 12/17/19 24 024 Inactive acetaminophen 500 mg tablet RxNorm: 074664 (MAX APAP:4GM/24HR) Take 1 Tablet(s) Oral TID as needed for pain 12/10/19 24 024 Active torsemide 20 mg tablet RxNorm: 214335 Take 1 Tablet(s) Oral QD 10/26/19 24 [...] %-0.3 % drops in a dropperette RxNorm: 691636 Apply 1-2 Drop(s) Both eyes BID as needed 09/28/19 24 Active erythromycin 5 mg/gram (0.5 %) eye ointment RxNorm: 095043 Apply 1 Application Both eyes QHS every night at bedtime Instill ~1 cm ribbon into affected eye 09/28/19 24 Inactive Artificial Tears (PF) 0.1 %-0.3 % drops in a dropperette RxNorm: 294546 Apply 1-2 Drop(s) Both eyes BID as needed 09/28/19 24 Inactive erythromycin 5 mg/gram (0.5 %) eye ointment RxNorm: 176579 Apply 1 Application Both eyes QHS every night at bedtime Instill ~1 cm ribbon into affected eye 09/28/19 24 Inactive acetaminophen 500 mg tablet RxNorm: 438055 (MAX APAP:4GM/24HR) Take 1 Tablet(s) Oral TID as needed for pain 09/24/19 Inactive carvedilol 25 mg tablet RxNorm: 588055 Take 1 Tablet(s) Oral QD 09/08/19 24 No Stop Date Active pregabalin 100 mg capsule RxNorm: 296247 Take 1 Capsule(s) Oral QAM every morning 09/07/19 24 024 Inactive rosuvastatin 40 mg tablet RxNorm: 134893 Take 1 Tablet(s) Oral QPM every evening 07/13/19 24 No Stop Date Active ezetimibe 10 mg tablet RxNorm: 884742 Take 1 Tablet(s) Oral QD 07/13/19 24 No Stop Date Active bisacodyl 10 mg rectal suppository RxNorm: 703181 Insert 1 Suppository Rectal QD as needed 07/13/19 24 No Stop Date Active polyethylene glycol 3350 17 gram/dose oral powder RxNorm: 508538 Take 17 Gram(s) Oral BID as needed mix in 4-8ox water 07/13/19 24 No Stop Date Active ketoconazole 2 % shampoo RxNorm: 158785 Apply 1 Application Topical UD as directed 07/13/19 24 No Stop Date Active Ozempic 1 mg/dose (4 mg/3 mL) subcutaneous pen injector RxNorm: 8390479 Inject 1 Milligram(s) Subcutaneous QW once a week 07/13/19 24 No Stop Date Active Guaifenesin AC 10 mg-100 mg/5 mL oral liquid RxNorm: 352660 Take 10 Milliliter(s) Oral Q4H every four hours as needed 07/13/19 24 No Stop Date Active ammonium lactate 12 % topical cream RxNorm: 188497 Apply 1 Application Topical BID 07/13/19 24 No Stop Date Active hydrocortisone 2.5 % topical cream RxNorm: 802807 Apply 1 Application Topical BID as needed 07/13/19 24 No Stop Date Active rosuvastatin 20 mg sprinkle capsule RxNorm: 4607826 Take 1 Capsule(s) Oral QD 07/13/19 24 No Stop Date Active Vascepa 1 gram capsule RxNorm: 4498921 Take 2 Capsule(s) Oral BID 07/13/19 24 No Stop Date Active venlafaxine ER 75 mg capsule,extended release 24 hr RxNorm: 732691 Take 3 Capsule(s) Oral QD 07/13/19 24 No Stop Date Active aripiprazole 15 mg tablet RxNorm: 051557 Take 1/2 Tablet(s) Oral QD 07/13/19 24 024 Inactive isosorbide mononitrate ER 60 mg tablet,extended release 24 hr RxNorm: 917076 Take 1 Tablet(s) Oral QD 07/13/19 24 024 Inactive Basaglar KwikPen U-100 Insulin 100 unit/mL (3 mL) subcutaneous RxNorm: 8519786 Inject 30U SubQ twice daily 07/07/19 24 024 Inactive Please dispense one month supply. Tusharagldestin MendenhallPen U-100 Insulin 100 unit/mL (3 mL) subcutaneous RxNorm: 2615644 Inject 30U SubQ twice daily 07/07/19 24 024 Inactive Please dispense one month supply. pregabalin 150 mg capsule RxNorm: 420128 Take 1 Capsule(s) Oral QHS every night at bedtime 07/05/19 24 024 Inactive pregabalin 150 mg capsule RxNorm: 902839 Take 1 Capsule(s) Oral QHS every night at bedtime 07/05/19 24 024 Inactive polyethylene glycol 3350 17 gram/dose oral powder RxNorm: 922135 Take 1 Packet Oral QD as needed (1 packet = 17g) mix with 4-8oz of liquid 06/15/19 24 024 Inactive bisacodyl 10 mg rectal suppository RxNorm: 603336 Insert one suppository per rectum once daily as needed for constipation 06/15/19 24 024 Inactive bisacodyl 10 mg rectal suppository RxNorm: 309077 Insert one suppository per rectum once daily as needed for constipation 06/15/19 24 024 Inactive pregabalin 100 mg capsule RxNorm: 043299 Take 1 Capsule(s) Oral QAM every morning 04/27/20 23 024 Inactive Levemir FlexPen 100 unit/mL (3 mL) solution subcutaneous insulin pen RxNorm: 376600 Inject 30 Unit(s) Subcutaneous BID 04/27/20 23 024 Inactive rosuvastatin 40 mg tablet RxNorm: 284700 Take 1 Tablet(s) Oral QPM every evening 04/16/20 23 024 Inactive D/C rosuvastatin 20mg venlafaxine ER 75 mg capsule,extended release 24 hr RxNorm: 668933 Take 3 Capsule(s) Oral QD 04/14/20 23 023 Inactive pregabalin 100 mg capsule RxNorm: 604668 Take 1 Capsule(s) Oral QAM every morning [...] strip clotrimazole 1 % topical cream RxNorm: 418847 Take apply topically to abdominal folds twice daily for 14 days 03/12/20 024 Inactive Ozempic 1 mg/dose (4 mg/3 mL) subcutaneous pen injector RxNorm: 8621535 Inject 1 Milligram(s) Subcutaneous QW once a week 03/11/20 23 023 Inactive rosuvastatin 20 mg tablet RxNorm: 641343 Take 1 Tablet(s) Oral QD 02/26/20 023 Inactive d/c pravastatin 80mg Ozempic 1 mg/dose (4 mg/3 mL) subcutaneous pen injector RxNorm: 3603217 Inject 1 Milligram(s) Subcutaneous QW once a week 02/20/20 23 023 Inactive pregabalin 150 mg capsule RxNorm: 511168 Take 1 Capsule(s) Oral HS at bed time 02/19/20 23 023 Inactive pregabalin 100 mg capsule RxNorm: 054684 Take 1 Capsule(s) Oral QAM every morning 02/18/20 23 023 Inactive venlafaxine ER 75 mg capsule,extended release 24 hr RxNorm: 915750 Take 3 Capsule(s) Oral QD 02/04/20 23 023 Inactive FreeStyle Chema 2 Sensor kit RxNorm: use as directed 02/04/20 23 023 Inactive FreeStyle Chema 2 Sensor kit RxNorm: use as directed 02/04/20 23 024 Inactive fluconazole 150 mg tablet RxNorm: 676734 Take 1 Tablet(s) Oral on day 3 and on day 6 02/03/20 23 024 Inactive chlorthalidone 25 mg tablet RxNorm: 513992 Take 1 Tablet(s) Oral QAM every morning 02/03/20 23 No Stop Date Active venlafaxine ER 150 mg capsule,extended release 24 hr RxNorm: 656472 Take 1 Capsule(s) Oral QD 02/03/20 23 023 Inactive acetaminophen 500 mg tablet RxNorm: 451659 1 TABLET ORALLY 3 TIMES DAILY (MAX APAP:4GM/24HR) 12/15/19 23 023 Inactive clotrimazole 1 % topical cream RxNorm: 887532 apply 1g topically to top of feet and in between toes BID 12/09/19 23 023 Inactive potassium chloride ER 20 mEq tablet,extended release RxNorm: 052047 Take 1 Tablet(s) Oral BID 12/09/19 23 024 Inactive d/c 20mEq once daily (sent from hospital) nystatin 100,000 unit/gram topical powder RxNorm: 774888 APPLY TO AFFECTED AREAS TOPICALLY 2 TIMES DAILY 11/21/19 23 023 Inactive Nystop 100,000 unit/gram topical powder RxNorm: 215700 Apply to abd folds, under breasts and L side of groin Topical BID x 14 days, then BID PRN 11/20/19 23 023 Inactive dx: yeast dermatitis [place] Ultra Strength 4 %-30 %-10 % topical cream RxNorm: 881357 Apply 1 Gram(s) Topical QID PRN to feet and legs for neuropathic pain 11/11/19 23 024 Inactive clotrimazole 1 % topical cream RxNorm: 915122 Apply 1/2 Gram(s) Topical BID Apply to affected areas of groin, periarea, and abdominal topically 2 times daily 11/10/19 23 023 Inactive hydrocortisone 2.5 % topical cream RxNorm: 011881 Apply 1/2 Gram(s) Topical BID as needed 11/10/19 23 024 Inactive Levemir FlexPen 100 unit/mL (3 mL) solution subcutaneous insulin pen RxNorm: 488060 Inject 30 Unit(s) Subcutaneous BID 10/07/19 23 023 Inactive Humulin R U-500 (Concentrated) Insulin 500 unit/mL subcutaneous soln RxNorm: 128076 Inject 100 Unit(s) Subcutaneous TID 10/07/19 23 024 Inactive Ozempic 0.25 mg or 0.5 mg (2 mg/3 mL) subcutaneous pen injector RxNorm: 6824748 Inject 1/2 Milligram(s) Subcutaneous QW once a week 10/07/19 23 024 Inactive aripiprazole 15 mg tablet RxNorm: 006215 1/2 TAB (7.5MG) ORALLY DAILY (DX:MAJOR DEPRESSIVE DISORDER) 09/23/19 23 023 Inactive Accu-Chek Guide test strips RxNorm: Use 1 Test Strip QID 09/15/19 23 023 Inactive ok to substitute with any covered alternative test strip Lancets,Thin 28 gauge RxNorm: Use 1 as directed QID 09/15/19 23 023 Inactive torsemide 20 mg tablet RxNorm: 362158 Take 1 Tablet(s) Oral BID 09/09/19 23 024 Inactive d/c once daily dosing carvedilol 25 mg tablet RxNorm: 720052 Take 1 Tablet(s) Oral QD 08/25/19 23 024 Inactive pregabalin 150 mg capsule RxNorm: 819748 1 Capsule(s) Oral HS at bed time 08/18/19 23 023 Inactive pregabalin 100 mg capsule RxNorm: 371633 1 Capsule(s) Oral QAM every morning 08/18/19 23 023 Inactive carvedilol 25 mg tablet RxNorm: 614607 1 Tablet(s) Oral QD 07/28/19 23 023 Inactive lisinopril 20 mg tablet RxNorm: 552916 Give 1 Tablet(s) Oral QD 07/28/19 23 023 Inactive Lyrica 150 mg capsule RxNorm: 046198 Take 1 Capsule(s) Oral QHS every night at bedtime 07/19/19 23 023 Inactive d/c 100mg dose Diflucan 150 mg tablet RxNorm: 011847 Take 1 Tablet(s) Oral QD repeat on day 3 and 6 07/19/19 23 023 Inactive pregabalin 100 mg capsule RxNorm: 837075 Take 1 Capsule(s) Oral QAM every morning 07/19/19 23 023 Inactive gatifloxacin 0.5 % eye drops RxNorm: 025015 Instill 1 Drop(s) as directed TID Instill 1 drop in to affected eye(s) starting 1 day prior to surgery and continue until gone (do not exceed 4 weeks). 07/13/19 23 023 Inactive carvedilol 25 mg tablet RxNorm: 654763 2 Tablet(s) Oral BID 07/13/19 023 Inactive Humulin R Regular U-100 Insulin 100 unit/mL injection solution RxNorm: 997520 85 Unit(s) Injection TID 07/13/19 23 023 Inactive ketorolac 0.5 % eye drops RxNorm: 741162 Instill 1 Drop(s) as directed QID Instill 1 drop into affected eye(s) 4 times daily starting 1 day prior to surgery and continue until gone (do not exceed 4 weeks). 07/13/19 023 Inactive Diflucan 150 mg tablet RxNorm: 719357 Take 1 Tablet(s) Oral QD repeat on day 3 and 6 06/30/19 23 023 Inactive Accu-Chek Guide test strips RxNorm: Use 1 Test Strip QID Use 1 test strip to monitor blood glucose 4 times daily and as needed. Dx:E11.42. 06/23/19 23 023 Inactive ok to substitute with any covered alternative test strip dextromethorphan-gu aifenesin 10 mg-100 mg/5 mL oral liquid RxNorm: 176137 Take 10 Milliliter(s) Oral every 4 hours as needed for cough 06/19/19 23 023 Inactive dextromethorphan-gu aifenesin 10 mg-100 mg/5 mL oral liquid RxNorm: 347777 Take 10 Milliliter(s) Oral every 4 hours as needed for cough 06/19/19 23 023 Inactive Lyrica 150 mg capsule RxNorm: 909290 Take 1 Capsule(s) Oral QHS every night at bedtime 06/18/19 023 Inactive d/c 100mg dose aripiprazole 15 mg tablet RxNorm: 920520 1/2 TAB (7.5MG) ORALLY DAILY (DX:MAJOR DEPRESSIVE DISORDER) 06/05/19 023 Inactive pregabalin 100 mg capsule RxNorm: 607392 1 Capsule(s) Oral QAM every morning 06/02/19 023 Inactive Banophen 50 mg capsule RxNorm: 3326098 Take 1 Capsule(s) Oral Q6H every 6 hours as needed 05/19/19 23 No Stop Date Active Novolog Flexpen U-100 Insulin aspart 100 unit/mL (3 mL) subcutaneous RxNorm: 5898537 Inject 10 Unit(s) Subcutaneous QHS every night at bedtime with nighttime snack 04/08/20 022 Inactive Novolog Flexpen U-100 Insulin aspart 100 unit/mL (3 mL) subcutaneous RxNorm: 6542556 Inject 42 Unit(s) Subcutaneous TID in addition to sliding scale 04/08/20 022 Inactive d/c 36u albuterol sulfate HFA 90 mcg/actuation aerosol inhaler RxNorm: 2125433 Take 2 Puff(s) Inhalation Q4H every four hours as needed as needed for SOB, cough, or wheezing 04/07/20 030 Active Banophen 50 mg capsule RxNorm: 7814590 Take 1 Capsule(s) Oral Q6H every 6 hours as needed 04/06/20 023 Inactive diphenhydramine 50 mg tablet RxNorm: 0302504 Take 1 Tablet(s) Oral Q6H every 6 hours as needed 04/06/20 22 022 Inactive diphenhydramine 50 mg tablet RxNorm: 2745016 1 Tablet(s) Oral Q6H every 6 hours as needed 04/06/20 22 022 Inactive Abilify 15 mg tablet RxNorm: 736467 1/2 Tablet(s) Oral QD 03/10/20 22 023 Inactive Shingrix (PF) 50 mcg/0.5 mL intramuscular suspension, kit RxNorm: 3479995 Administer 1/2 Milliliter(s) Intramuscular QD one time shingrix step 2 ( step 1 given 11/04/21) WITH needle - Nursing please administer upon arrival and once administered post a bridge message with date of administration, office services specialist, expiration date, and lot# so we can update PAIC 02/18/20 22 022 Inactive dispense with needle Shingrix (PF) 50 mcg/0.5 mL intramuscular suspension, kit RxNorm: 3241918 Administer 1/2 Milliliter(s) Intramuscular QD one time shingrix step 2 ( step 1 given 11/04/21) WITH needle - Nursing please administer upon arrival and once administered post a bridge message with date of administration, office services specialist, expiration date, and lot# so we can update PAIC 02/18/20 22 022 Inactive dispense with needle polyethylene glycol 3350 17 gram/dose oral powder RxNorm: 250183 Take 17=1 capful Gram(s) Oral QD mix with 4-8oz of liquid 01/08/20 22 023 Inactive take this in addition to BID prn order Lyrica 100 mg capsule RxNorm: 371194 Take 1 Capsule(s) Oral QAM every morning 01/08/20 22 022 Inactive d/c 50mg dose acetaminophen 500 mg tablet RxNorm: 908940 Take 1 Tablet(s) Oral TID 01/08/20 22 022 Inactive d/c PRN order Lyrica 150 mg capsule RxNorm: 172379 Take 1 Capsule(s) Oral QHS every night at bedtime 01/08/20 22 023 Inactive d/c 100mg dose Abilify 5 mg tablet RxNorm: 322285 Take 1 Tablet(s) Oral QD take 1 tab po QD #30 refill 5 dx: MDD 12/12/19 22 022 Inactive Abilify 5 mg tablet RxNorm: 729342 Take 1 Tablet(s) Oral QD take 1 tab po QD #30 refill 5 dx: MDD 12/12/19 22 022 Inactive Novolog Flexpen U-100 Insulin aspart 100 unit/mL (3 mL) subcutaneous RxNorm: 2531356 Inject 42 Unit(s) Subcutaneous TID in addition to sliding scale 12/10/19 22 022 Inactive d/c 36u chlorthalidone 25 mg tablet RxNorm: 777955 Take 1 Tablet(s) Oral QAM every morning 12/10/19 22 023 Inactive pregabalin 50 mg capsule RxNorm: 676897 Take 1 Capsule(s) Oral QAM every morning 11/12/19 22 022 Inactive tetanus-diphtheria toxoids-Td 2 Lf unit-2 Lf unit/0.5 mL IM suspension RxNorm: 139 Take 0.5 Miscellaneous Intramuscular 11/12/19 22 022 Inactive need tdap - nursing to administer upon arrival pregabalin 50 mg capsule RxNorm: 125155 Take 1 Capsule(s) Oral QAM every morning 10/16/19 Inactive pregabalin 50 mg capsule RxNorm: 497762 Take 1 Capsule(s) Oral QAM every morning 10/16/19 22 022 Inactive pregabalin 50 mg capsule RxNorm: 415312 1 Capsule(s) Oral QAM every morning 10/15/19 22 022 Inactive Shingrix (PF) 50 mcg/0.5 mL intramuscular suspension, kit RxNorm: 1234097 Administer 1/2 Milliliter(s) Intramuscular one time Nursing please administer upon arrival and once administered post a bridge message with date of administration, office services specialist, expiration date, and lot# so we can update [facility]. 10/09/19 22 022 Inactive shingrix step 1 Shingrix (PF) 50 mcg/0.5 mL intramuscular suspension, kit RxNorm: 3417283 Administer 1/2 Milliliter(s) Intramuscular one time Nursing please administer upon arrival and once administered post a bridge message with date of administration, office services specialist, expiration date, and lot# so we can update [facility]. 10/09/19 22 022 Inactive shingrix step 1 cholecalciferol (vitamin D3) 1,250 mcg (50,000 unit) capsule RxNorm: 181800 Take 1 Capsule(s) Oral QW once a [...] aspart 100 unit/mL (3 mL) subcutaneous RxNorm: 8403911 Inject 10 Unit(s) Subcutaneous QHS every night at bedtime with nighttime snack 10/08/19 22 Inactive Shingrix (PF) 50 mcg/0.5 mL intramuscular suspension, kit RxNorm: 4921428 ADMINISTER 2-DOSE SERIES PER CDC GUIDELINES 10/08/19 22 Active Shingrix (PF) 50 mcg/0.5 mL intramuscular suspension, kit RxNorm: 2572195 ADMINISTER 2-DOSE SERIES PER CDC GUIDELINES 10/08/19 22 Inactive Novolog Flexpen U-100 Insulin aspart 100 unit/mL (3 mL) subcutaneous RxNorm: 8803369 Inject 36 Unit(s) Subcutaneous TID in addition to sliding scale 10/08/19 22 Inactive Novofine Autocover 30 gauge x 1/3 needle RxNorm: Use 1 Miscellaneous UD as directed Use 1 needle as directed to administer insulin 5 times a day Dx:E11.42. 10/03/19 Inactive ok to substitute with any covered alternative pen needle benzoyl peroxide 10 % topical cleanser RxNorm: 599845 Apply 1 Application Topical QD apply to face, wash rinse and dry once daily (may change to QOD if drying) 08/19/19 22 022 Inactive (%covered by insurance) #60ml refill 11 dx: acne benzoyl peroxide 10 % topical cleanser RxNorm: 435548 Apply 1 Application Topical QD apply to face, wash rinse and dry once daily (may change to QOD if drying) 08/19/19 22 022 Inactive (%covered by insurance) #60ml refill 11 dx: acne benzoyl peroxide 10 % topical cleanser RxNorm: 475515 Apply 1 Application Topical QD apply to face, wash rinse and dry once daily (may change to QOD if drying) 08/19/19 22 022 Inactive (%covered by insurance) #60ml refill 11 dx: acne Lyrica 50 mg capsule RxNorm: 220171 Take 1 Capsule(s) Oral QAM every morning Take 1 capsule by mouth once daily 08/19/19 22 022 Inactive benzoyl peroxide 10 % topical cleanser RxNorm: 120472 Apply 1 Application Topical QD apply to face, wash rinse and dry once daily (may change to QOD if drying) 08/19/19 22 022 Inactive (%covered by insurance) #60ml refill 11 dx: acne Lyrica 100 mg capsule RxNorm: 807129 Take 1 Capsule(s) Oral QHS every night at bedtime Take 1 capsule by mouth once daily at bedtime 08/19/19 22 022 Inactive Lyrica 100 mg capsule RxNorm: 706592 Take 1 Capsule(s) Oral QHS every night at bedtime Take 1 capsule by mouth once daily at bedtime 08/16/19 22 022 Inactive Lyrica 50 mg capsule RxNorm: 054292 Take 1 Capsule(s) Oral QAM every morning Take 1 capsule by mouth once daily 08/16/19 22 022 Inactive Levemir FlexTouch U-100 Insulin 100 unit/mL (3 mL) subcutaneous pen RxNorm: 220163 Inject 86 Unit(s) Subcutaneous BID 08/05/19 22 022 Inactive d/c 83units BID Lyrica 100 mg capsule RxNorm: 491307 Take 1 Capsule(s) Oral QHS every night at bedtime Take 1 capsule by mouth once daily at bedtime 07/14/19 22 022 Inactive Lyrica 50 mg capsule RxNorm: 539433 Take 1 Capsule(s) Oral QAM every morning Take 1 capsule by mouth once daily 07/14/19 22 022 Inactive Levemir FlexTouch U-100 Insulin 100 unit/mL (3 mL) subcutaneous pen RxNorm: 610677 Inject 83 Unit(s) Subcutaneous BID 07/08/19 22 [...] test strip hydralazine 50 mg tablet RxNorm: 797393 Take 1 Tablet(s) Oral QID 05/05/20 21 022 Inactive venlafaxine ER 225 mg tablet,extended release 24 hr RxNorm: 838035 Take 1 Tablet(s) Oral QD 05/05/20 21 021 Inactive venlafaxine ER 225 mg tablet,extended release 24 hr RxNorm: 730189 Take 1 Tablet(s) Oral QD 12/20 022 Inactive isosorbide mononitrate ER 30 mg tablet,extended release 24 hr RxNorm: 553423 Take 1 Tablet(s) Oral QD 05/05/20 21 024 Inactive hydralazine 50 mg tablet RxNorm: 473213 Take 1 Tablet(s) Oral QID 05/05/20 21 021 Inactive aspirin 81 mg tablet,delayed release RxNorm: 541453 Take 1 Tablet(s) Oral QD 03/31/20 022 Inactive Vitamin D2 1,250 mcg (50,000 unit) capsule RxNorm: 1930603 Take 1 Capsule(s) Oral QW once a week x 12 weeks 03/31/20 Inactive Vitamin D2 1,250 mcg (50,000 unit) capsule RxNorm: 4694020 Take 1 Capsule(s) Oral QW once a week 03/31/20 021 Inactive Zetia 10 mg tablet RxNorm: 338305 Take 1 Tablet(s) Oral QD 03/31/20 024 Inactive Zetia 10 mg tablet RxNorm: 597877 Take 1 Tablet(s) Oral QD 03/31/20 021 Inactive hydralazine 25 mg tablet RxNorm: 610534 Take 1 Tablet(s) Oral QID 03/31/20 21 021 Inactive hydralazine 25 mg tablet RxNorm: 468647 Take 1 Tablet(s) Oral QID 03/31/20 021 Inactive hydralazine 10 mg tablet RxNorm: 763569 Take 1 Tablet(s) Oral QID 03/03/20 021 Inactive cephalexin 500 mg tablet RxNorm: 003452 Take 1 Tablet(s) Oral QID 02/27/20 021 Inactive cephalexin 500 mg tablet RxNorm: 525521 Take 1 Tablet(s) Oral QID 02/27/20 021 Inactive lisinopril 40 mg tablet RxNorm: 052840 Take 1 Tablet(s) Oral QD 02/11/20 21 023 Inactive Eliquis 5 mg tablet RxNorm: 0126517 Take 1 Tablet(s) Oral BID 01/05/20 022 Inactive Eliquis 5 mg tablet RxNorm: 2408150 Take 2 Tablet(s) Oral QD 01/01/20 021 Inactive Lyrica 50 mg capsule RxNorm: 818770 Take 1 Capsule(s) Oral QAM every morning 12/24/19 21 021 Inactive Lyrica 100 mg capsule RxNorm: 903263 Take 1 Capsule(s) Oral QHS every night at bedtime 12/24/19 021 Inactive clotrimazole 1 % topical cream RxNorm: 882765 Apply to right foot and toes Topical BID 12/04/19 21 023 Inactive metoprolol succinate ER 200 mg tablet,extended release 24 hr RxNorm: 299365 Take 1 Tablet(s) Oral QD 12/04/19 023 Inactive ciprofloxacin 500 mg tablet RxNorm: 698267 Take 1 Tablet(s) Oral QD 11/30/19 021 Inactive DX ofloxacin otic drops Accu-Chek Guide test strips RxNorm: USE 1 TO CHECK GLUCOSE 4 TIMES DAILY AND NEEDED 11/15/19 21 023 Inactive Blood Glucose Test strips RxNorm: Use 1 Test Strip QID at PRN 11/05/19 21 023 Inactive E11.42 lisinopril 30 mg tablet RxNorm: 372117 Take 1 Tablet(s) Oral QD 10/30/19 021 Inactive lisinopril 20 mg tablet RxNorm: 888271 Take 1 Tablet(s) Oral QD 10/23/19 021 Inactive lisinopril 20 mg tablet RxNorm: 735711 Take 1 Tablet(s) Oral QD 10/23/19 21 021 Inactive lisinopril 10 mg tablet RxNorm: 575797 Take 1 Tablet(s) Oral QD 10/02/19 21 021 Inactive icosapent ethyl 1 gram capsule RxNorm: 9405499 Take 2 Capsule(s) (2 gm) Oral BID with meals 09/12/19 21 024 Inactive Okay to dispense one 2gm tab if you have that available. icosapent ethyl 1 gram capsule RxNorm: 6785008 Take 2 Capsule(s) Oral BID 09/12/19 21 021 Inactive Okay to dispense one 2gm tab if you have that available. amlodipine 10 mg tablet RxNorm: 047479 Take 1 Tablet(s) Oral QD 09/04/19 022 Inactive aspirin 81 mg tablet,delayed release RxNorm: 478663 Take 1 Tablet(s) Oral QD 09/04/19 021 Inactive Levemir FlexTouch U-100 Insulin 100 unit/mL (3 mL) subcutaneous pen RxNorm: 792256 Inject 150 Unit(s) Subcutaneous BID 09/04/19 022 Inactive venlafaxine ER 150 mg tablet,extended release 24 hr RxNorm: 181001 Take 1 Tablet(s) Oral QD 09/04/19 Inactive clotrimazole-betame thasone 1 %-0.05 % topical cream RxNorm: 885850 Apply to rash on red area on left abdomen/chest Topical BID 08/10/19 21 021 Inactive amlodipine 5 mg tablet RxNorm: 702788 Take 1 Tablet(s) Oral QD 07/31/19 Inactive cephalexin 500 mg tablet RxNorm: 859525 Take 1 Tablet(s) Oral BID BID - Twice Daily 07/31/19 021 Inactive Start 08/01/20 pantoprazole 40 mg tablet,delayed release RxNorm: 134440 Take 1 Tablet(s) Oral QAM every morning 07/08/19 022 Inactive senna 8.6 mg tablet RxNorm: 306909 Take 1 Tablet(s) Oral QD 07/08/19 022 Inactive carbamazepine 200 mg tablet RxNorm: 745978 Take 1 Tablet(s) Oral BID 07/08/19 21 022 Inactive clopidogrel 75 mg tablet RxNorm: 230268 Take 1 Tablet(s) Oral QD 07/08/19 021 Inactive Blood Glucose Test strips RxNorm: Use 1 Test Strip QID at PRN 07/08/1907 07/22/2 021 Inactive E11.42 Novolog Flexpen U-100 Insulin aspart 100 unit/mL (3 mL) subcutaneous RxNorm: 3634118 Administer per sliding scale Milliliter(s) Subcutaneous TID 151-200: 10 u; 201-250: 20 u; 251-300: 30 u; 301-350: 40 u; 351-400: 50 u. 07/08/19 022 Inactive lisinopril 5 mg tablet RxNorm: 780988 Take 1 Tablet(s) Oral QD 07/08/19 21 021 Inactive Novolog Flexpen U-100 Insulin aspart 100 unit/mL (3 mL) subcutaneous RxNorm: 0116604 Inject 85 Unit(s) Subcutaneous TID 07/08/19 022 Inactive pravastatin 80 mg tablet RxNorm: 682256 Take 1 Tablet(s) Oral QHS every night at bedtime 07/08/19 023 Inactive clotrimazole 1 % topical cream RxNorm: 019242 Apply to bilateral groin areas Topical BID 07/08/19 022 Inactive metoprolol succinate ER 200 mg tablet,extended release 24 hr RxNorm: 232491 Take 1 Tablet(s) Oral QD 07/08/19 021 Inactive Vitamin D3 25 mcg (1,000 unit) tablet RxNorm: 075492 Take 1 Tablet(s) Oral QD 07/08/19 021 Inactive isosorbide dinitrate 30 mg tablet RxNorm: 175777 Take 1 Tablet(s) Oral QD 07/08/19 021 Inactive Levemir FlexTouch U-100 Insulin 100 unit/mL (3 mL) subcutaneous pen RxNorm: 579245 Inject 140 Unit(s) Subcutaneous BID 07/08/19 021 Inactive torsemide 20 mg tablet RxNorm: 805015 Take 1 Tablet(s) Oral QD 07/08/19 21 023 Inactive venlafaxine 75 mg tablet RxNorm: 006800 Take 1 Tablet(s) Oral QD 07/08/19 021 Inactive acetaminophen 500 mg tablet RxNorm: Take 1 Tablet(s) Oral TID as needed for headache 06/18/19 21 021 Inactive acetaminophen 500 mg tablet RxNorm: 644021 Take 1 Tablet(s) Oral TID as needed for headache 06/18/19 21 021 Inactive Lyrica 100 mg capsule RxNorm: 601085 Take 1 Capsule(s) Oral QHS every night at bedtime 06/11/19 21 021 Inactive Lyrica 50 mg capsule RxNorm: 446767 Take 1 Capsule(s) Oral QAM every morning 06/10/19 21 021 Inactive hydrocortisone 2.5 % topical cream RxNorm: 294428 Apply to bilateral groin creases Topical BID 05/15/20 20 021 Inactive clotrimazole 1 % topical cream RxNorm: 267814 Apply to bilateral groin areas Topical BID 05/15/20 20 021 Inactive Lyrica 50 mg capsule RxNorm: 002613 Take 1 Capsule(s) Oral QAM every morning 05/14/20 20 020 Inactive Lyrica 100 mg capsule RxNorm: 557455 Take 1 Capsule(s) Oral QHS every night [...] Inactive Nystop 100,000 unit/gram topical powder RxNorm: 954716 Apply to abd folds, under breasts and L side of groin Topical BID x 14 days, then BID PRN 04/08/20 20 Inactive dx: yeast dermatitis Lyrica 100 mg capsule RxNorm: 979321 Take 1 Capsule(s) Oral QHS every night at bedtime 03/13/20 20 Inactive Lyrica 50 mg capsule RxNorm: 511792 Take 1 Capsule(s) Oral QAM every morning 03/13/20 20 Inactive ketoconazole 2 % shampoo RxNorm: 187940 Apply Topical two times a week with showers 03/11/20 20 Inactive cholecalciferol (vitamin D3) 50 mcg (2,000 unit) tablet RxNorm: 525012 Take 1 Tablet(s) Oral QD 03/11/20 20 Inactive Zetia 10 mg tablet RxNorm: 726733 Take 1 Tablet(s) Oral QD 03/07/20 20 Inactive Zetia 10 mg tablet RxNorm: 593614 Take 1 Tablet(s) Oral QD 03/07/20 20 Inactive Lyrica 50 mg capsule RxNorm: 738345 Take 1 Capsule(s) Oral QAM every morning 02/15/20 20 Inactive Lyrica 100 mg capsule RxNorm: 481930 Take 1 Capsule(s) Oral QHS every night at bedtime 02/15/20 20 Inactive Lyrica 100 mg capsule RxNorm: 711988 Take 1 Capsule(s) Oral QHS every night at bedtime 02/15/20 20 Inactive Lyrica 50 mg capsule RxNorm: 691193 Take 1 Capsule(s) Oral QAM every morning 02/15/20 20 Inactive metoprolol succinate ER 200 mg tablet,extended release 24 hr RxNorm: 796037 Take 1 Tablet(s) Oral QD 08/12/19 23 Active loperamide 2 mg capsule RxNorm: 046043 Take 1 Capsule(s) Oral QID as needed 06/12/19 Active hydralazine 50 mg tablet RxNorm: 509390 Take 1 Tablet(s) Oral QID 08/12/19 23 Active Soft Touch Lancets RxNorm: miscellaneous 03/04/20 24 Active venlafaxine ER 75 mg capsule,extended release 24 hr RxNorm: 695824 Take 3 Capsule(s) Oral QD 06/12/19 22 023 Inactive polyethylene glycol 3350 17 gram/dose oral powder RxNorm: 250007 Take 17=1 capful Gram(s) Oral BID as needed mix with 4-8oz of liquid 06/12/19 22 024 Inactive icosapent ethyl 1 gram capsule RxNorm: 7880741 Take 2 Capsule(s) (2 gm) Oral BID with meals 10/07/19 23 023 Inactive Okay to dispense one 2gm tab if you have that available. Levemir FlexTouch U-100 Insulin 100 unit/mL (3 mL) subcutaneous pen RxNorm: 303557 Inject 80 Unit(s) Subcutaneous BID 07/14/19 23 023 Inactive Novolog Flexpen U-100 Insulin aspart 100 unit/mL (3 mL) subcutaneous RxNorm: 3477755 Insert 30 Unit(s) Subcutaneous TID with meals [...] Codes Status Date Appointment: Brian Munson WPtel: [address] [place], [place] [phone] AWV 02/08/2024 Appointment: Brian Munson WPtel: [address] [place], [place] [phone] [place] F/U 01/11/2024 Appointment: Sandra Clark WPtel: [address] [place], [place] [phone] Telehealth Psych Follow Up 12/09 Appointment: Tapan Shirley WPtel: [address] [place], [place] [phone] TCM 10/26/2022 Referral: [facility] WPtel: [address], [address] [id number] Referral Records Received 09/21/2022 Appointment: Tapan Shirley WPtel: [address] [place], [place] [phone] [place] F/U 08/11/2022 Appointment: Tapan Shirley WPtel: [address] [place], [place] [phone] [place] F/U 07/14/2022 Appointment: Tapan Shirley WPtel: [address] [facility] [address] [id number] [place] F/U 02/10/2022 Referral: [facility] CARLO WPtel: [address] [facility] [address] [id number] [place] Referral Completed 05/28/2021 Referral: General Cardiology [...] attention.??Sister Jyotsna involved in his care cell# [phone]??Guardian: Giulia (tapan met in person 09/01/21), now [...] note from 11.08.2023 at [facility] (follow up 6 months)Colon & Rectal Surgery visit scheduled for 03/08/24 with Matilde Pérez PA-C.?? 02/08/2024
--- OUTSIDE RECORDS SUMMARY | 2024-03-09 00:43 | XMS_ITS | CCD ---
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 Name Role Phone Arpit MCKINLEY-C, [place] Primary Care Provider Leona vailable [place] HYDRAULIC REPAIRER-C, [facility] Chronic Care Management U navailable Summary Purpose DataExchange Insurance Providers Payer name Policy type / Coverage type Covered libertarian ID Effective Begin Date Effective End Date [place] Part B [id number] Unknown Unknown Medicaid [place] Medicare Part B [id number] Unknown Unknown Family history Sister Brittany Suggs Diagnosis Age At Onset No Family Disease Entered N/A Runs in the family Diagnosis Age At Onset No Known Diseases N/A Sister Blanka Mcduffie Diagnosis Age At Onset No Family Disease Entered N/A Social History Social History Element Codes Description Effec tive Dates Tobacco history SNOMED CT: 747920037 Never smoker 01/16 Sexually Active? Unknown No [...] 10/07/2021 Living arrangements Unknown [facility] 09/03/[address]: 391860059 No Alcohol Consum ption 09/02/2020 Allergies, Adverse Reactions, Alerts Substance Reaction Codes Entered Date Inactivated Date Status * NO KNOWN FOOD ALLERGIES Unknown 07/13/2023 No Inactive Date Active LISINOPRIL RxNorm: 08962 02/12/2020 No Inactive Da te Active Metformin [...] E78. 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 Other nursing home (current) dr ug therapy ICD-10: Z79.899 [...] 09/07/2023 Resolved Coronary artery disease invo lving hoopa coronary [...] Strip TID to test Blood glucose 03/08/20 025 Active ok to substitute with any covered alternative test strip Accu-Chek Guide test strips RxNorm: Use 1 Test Strip TID to test BS 03/08/20 024 Inactive ok to substitute with any covered alternative test strip Radha MendenhallPen U-100 Insulin 100 unit/mL (3 mL) subcutaneous RxNorm: 8187901 Inject 40 Unit(s) Subcutaneous BID 03/07/20 025 Active Please dispense one month supply. Humulin R U-500 (Concentrated) Insulin 500 unit/mL subcutaneous soln RxNorm: 244554 Inject 100 Unit(s) Subcutaneous AC before meals [...] PRN) to be use with new Accu Camas meter 03/04/20 Inactive ok to substitute with any covered alternative test strip nystatin 100,000 unit/gram topical powder RxNorm: 148136 Apply 1 Application Topical BID as needed [...] 024 Inactive Pen Needle 30 gauge x 5 RxNorm: Pen(s) Use 1 needle as directed TID 03/02/20 24 024 Inactive Humulin R U-500 (Concentrated) Insulin 500 unit/mL subcutaneous soln RxNorm: 467614 Inject 100 Unit(s) Subcutaneous TID 02/17/20 24 024 Inactive Humulin R U-500 (Concentrated) Insulin 500 unit/mL subcutaneous soln RxNorm: 129814 Inject 100 Unit(s) Subcutaneous TID 02/10/20 24 024 Inactive Basaglar ValorieikPen U-100 Insulin 100 unit/mL (3 mL) subcutaneous RxNorm: 1737971 Inject 30 Unit(s) Subcutaneous BID 02/10/20 24 024 Inactive Please dispense one month supply. pregabalin 100 mg capsule RxNorm: 128435 Take 1 Capsule(s) Oral QAM every morning 02/07/20 24 024 Active isosorbide mononitrate ER 60 mg tablet,extended release 24 hr RxNorm: 743679 Take 1 Tablet(s) Oral QD 02/01/20 24 025 Active aripiprazole 15 mg tablet RxNorm: 322607 Take 1/2 Tablet(s) Oral QD 02/01/20 24 025 Active torsemide 20 mg tablet RxNorm: 584458 1 TAB ORALLY DAILY (DX: EDEMA) 01/27/20 No Stop Date Active potassium chloride ER 20 mEq tablet,extended release(part/cryst) RxNorm: 8735468 2 TABS (40MEQ) ORALLY TWICE DAILY (DX: HYPOKALEMIA) 01/27/20 24 No Stop Date Active cephalexin 500 mg capsule RxNorm: 990456 Take 1 Capsule(s) Oral QID 12/17/19 24 024 Inactive cephalexin 500 mg capsule RxNorm: 715473 Take 1 Capsule(s) Oral QID 12/17/19 24 024 Inactive acetaminophen 500 mg tablet RxNorm: 538620 (MAX APAP:4GM/24HR) Take 1 Tablet(s) Oral TID as needed for pain 12/10/19 24 024 Active torsemide 20 mg tablet RxNorm: 393438 Take 1 Tablet(s) Oral QD 10/26/19 24 024 Inactive potassium chloride ER 20 mEq tablet,extended release RxNorm: 583961 Take 2 Tablet(s) Oral BID 10/26/19 24 Active torsemide 20 mg tablet RxNorm: 547948 Take 1 Tablet(s) Oral QD 10/26/19 24 Inactive potassium chloride ER 20 mEq tablet,extended release RxNorm: 321086 Take 2 Tablet(s) Oral BID 10/26/19 24 Inactive Artificial Tears (PF) 0.1 %-0.3 % drops in a dropperette RxNorm: 050066 Apply 1-2 Drop(s) Both eyes BID as needed 09/28/19 24 Active erythromycin 5 mg/gram (0.5 %) eye ointment RxNorm: 476282 Apply 1 Application Both eyes QHS every night at bedtime Instill ~1 cm ribbon into affected eye 09/28/19 24 024 Inactive Artificial Tears (PF) 0.1 %-0.3 % drops in a dropperette RxNorm: 546080 Apply 1-2 Drop(s) Both eyes BID as needed 09/28/19 24 Inactive erythromycin 5 mg/gram (0.5 %) eye ointment RxNorm: 235502 Apply 1 Application Both eyes QHS every night at bedtime Instill ~1 cm ribbon into affected eye 09/28/19 24 024 Inactive acetaminophen 500 mg tablet RxNorm: 893176 (MAX APAP:4GM/24HR) Take 1 Tablet(s) Oral TID as needed for pain 09/24/19 24 024 Inactive carvedilol 25 mg tablet RxNorm: 529827 Take 1 Tablet(s) Oral QD 09/08/19 24 No Stop Date Active pregabalin 100 mg capsule RxNorm: 118342 Take 1 Capsule(s) Oral QAM every morning 09/07/19 24 024 Inactive rosuvastatin 40 mg tablet RxNorm: 558156 Take 1 Tablet(s) Oral QPM every evening 07/13/19 24 No Stop Date Active ezetimibe 10 mg tablet RxNorm: 286610 Take 1 Tablet(s) Oral QD 07/13/19 24 No Stop Date Active bisacodyl 10 mg rectal suppository RxNorm: 932157 Insert 1 Suppository Rectal QD as needed 07/13/19 24 No Stop Date Active polyethylene glycol 3350 17 gram/dose oral powder RxNorm: 488249 Take 17 Gram(s) Oral BID as needed mix in 4-8ox water 07/13/19 24 No Stop Date Active ketoconazole 2 % shampoo RxNorm: 231931 Apply 1 Application Topical UD as directed 07/13/19 24 No Stop Date Active Ozempic 1 mg/dose (4 mg/3 mL) subcutaneous pen injector RxNorm: 7534823 Inject 1 Milligram(s) Subcutaneous QW once a week 07/13/19 24 No Stop Date Active Guaifenesin AC 10 mg-100 mg/5 mL oral liquid RxNorm: 419898 Take 10 Milliliter(s) Oral Q4H every four hours as needed 07/13/19 24 No Stop Date Active ammonium lactate 12 % topical cream RxNorm: 265555 Apply 1 Application Topical BID 07/13/19 24 No Stop Date Active hydrocortisone 2.5 % topical cream RxNorm: 675790 Apply 1 Application Topical BID as needed 07/13/19 24 No Stop Date Active rosuvastatin 20 mg sprinkle capsule RxNorm: 7324203 Take 1 Capsule(s) Oral QD 07/13/19 24 No Stop Date Active Vascepa 1 gram capsule RxNorm: 3522444 Take 2 Capsule(s) Oral BID 07/13/19 24 No Stop Date Active venlafaxine ER 75 mg capsule,extended release 24 hr RxNorm: 535386 Take 3 Capsule(s) Oral QD 07/13/19 24 No Stop Date Active aripiprazole 15 mg tablet RxNorm: 624591 Take 1/2 Tablet(s) Oral QD 07/13/19 24 024 Inactive isosorbide mononitrate ER 60 mg tablet,extended release 24 hr RxNorm: 730845 Take 1 Tablet(s) Oral QD 07/13/19 24 024 Inactive Basaglar KwikPen U-100 Insulin 100 unit/mL (3 mL) subcutaneous RxNorm: 9262872 Inject 30U SubQ twice daily 07/07/19 24 024 Inactive Please dispense one month supply. Basaglar KwikPen U-100 Insulin 100 unit/mL (3 mL) subcutaneous RxNorm: 8689288 Inject 30U SubQ twice daily 07/07/19 24 024 Inactive Please dispense one month supply. pregabalin 150 mg capsule RxNorm: 407896 Take 1 Capsule(s) Oral QHS every night at bedtime 07/05/19 24 024 Inactive pregabalin 150 mg capsule RxNorm: 643643 Take 1 Capsule(s) Oral QHS every night at bedtime 07/05/19 24 024 Inactive polyethylene glycol 3350 17 gram/dose oral powder RxNorm: 346657 Take 1 Packet Oral QD as needed (1 packet = 17g) mix with 4-8oz of liquid 06/15/19 24 024 Inactive bisacodyl 10 mg rectal suppository RxNorm: 999919 Insert one suppository per rectum once daily as needed for constipation 06/15/19 24 024 Inactive bisacodyl 10 mg rectal suppository RxNorm: 400168 Insert one suppository per rectum once daily as needed for constipation 06/15/19 24 024 Inactive pregabalin 100 mg capsule RxNorm: 935596 Take 1 Capsule(s) Oral QAM every morning 04/27/20 23 024 Inactive Levemir FlexPen 100 unit/mL (3 mL) solution subcutaneous insulin pen RxNorm: 680309 Inject 30 Unit(s) Subcutaneous BID 04/27/20 23 024 Inactive rosuvastatin 40 mg tablet RxNorm: 035126 Take 1 Tablet(s) Oral QPM every evening 04/16/20 024 Inactive D/C rosuvastatin 20mg venlafaxine ER 75 mg capsule,extended release 24 hr RxNorm: 511891 Take 3 Capsule(s) Oral QD 04/14/20 23 023 Inactive pregabalin 100 mg capsule RxNorm: 239115 Take 1 Capsule(s) Oral QAM every morning [...] strip clotrimazole 1 % topical cream RxNorm: 837047 Take apply topically to abdominal folds twice daily for 14 days 03/12/20 23 024 Inactive Ozempic 1 mg/dose (4 mg/3 mL) subcutaneous pen injector RxNorm: 2445614 Inject 1 Milligram(s) Subcutaneous QW once a week 03/11/20 023 Inactive rosuvastatin 20 mg tablet RxNorm: 104113 Take 1 Tablet(s) Oral QD 02/26/20 023 Inactive d/c pravastatin 80mg Ozempic 1 mg/dose (4 mg/3 mL) subcutaneous pen injector RxNorm: 3513405 Inject 1 Milligram(s) Subcutaneous QW once a week 02/20/20 23 023 Inactive pregabalin 150 mg capsule RxNorm: 793200 Take 1 Capsule(s) Oral HS at bed time 02/19/20 23 023 Inactive pregabalin 100 mg capsule RxNorm: 142863 Take 1 Capsule(s) Oral QAM every morning 02/18/20 23 023 Inactive venlafaxine ER 75 mg capsule,extended release 24 hr RxNorm: 969051 Take 3 Capsule(s) Oral QD 02/04/20 023 Inactive FreeStyle Chema 2 Sensor kit RxNorm: use as directed 02/04/20 23 023 Inactive FreeStyle Chema 2 Sensor kit RxNorm: use as directed 02/04/20 23 024 Inactive fluconazole 150 mg tablet RxNorm: 367687 Take 1 Tablet(s) Oral on day 3 and on day 6 02/03/20 23 024 Inactive chlorthalidone 25 mg tablet RxNorm: 568268 Take 1 Tablet(s) Oral QAM every morning 02/03/20 23 No Stop Date Active venlafaxine ER 150 mg capsule,extended release 24 hr RxNorm: 942644 Take 1 Capsule(s) Oral QD 02/03/20 023 Inactive acetaminophen 500 mg tablet RxNorm: 561001 1 TABLET ORALLY 3 TIMES DAILY (MAX APAP:4GM/24HR) 12/15/19 023 Inactive clotrimazole 1 % topical cream RxNorm: 790800 apply 1g topically to top of feet and in between toes BID 12/09/19 23 023 Inactive potassium chloride ER 20 mEq tablet,extended release RxNorm: 156015 Take 1 Tablet(s) Oral BID 12/09/19 024 Inactive d/c 20mEq once daily (sent from hospital) nystatin 100,000 unit/gram topical powder RxNorm: 806756 APPLY TO AFFECTED AREAS TOPICALLY 2 TIMES DAILY 11/21/19 023 Inactive Nystop 100,000 unit/gram topical powder RxNorm: 700530 Apply to abd folds, under breasts and L side of groin Topical BID x 14 days, then BID PRN 11/20/19 023 Inactive dx: yeast dermatitis [place] Ultra Strength 4 %-30 %-10 % topical cream RxNorm: 401203 Apply 1 Gram(s) Topical QID PRN to feet and legs for neuropathic pain 11/11/19 024 Inactive clotrimazole 1 % topical cream RxNorm: 979714 Apply 1/2 Gram(s) Topical BID Apply to affected areas of groin, periarea, and abdominal topically 2 times daily 11/10/19 023 Inactive hydrocortisone 2.5 % topical cream RxNorm: 904154 Apply 1/2 Gram(s) Topical BID as needed 11/10/19 024 Inactive Levemir FlexPen 100 unit/mL (3 mL) solution subcutaneous insulin pen RxNorm: 913904 Inject 30 Unit(s) Subcutaneous BID 10/07/19 23 023 Inactive Humulin R U-500 (Concentrated) Insulin 500 unit/mL subcutaneous soln RxNorm: 888404 Inject 100 Unit(s) Subcutaneous TID 10/07/19 23 024 Inactive Ozempic 0.25 mg or 0.5 mg (2 mg/3 mL) subcutaneous pen injector RxNorm: 0144169 Inject 1/2 Milligram(s) Subcutaneous QW once a week 10/07/19 024 Inactive aripiprazole 15 mg tablet RxNorm: 467934 1/2 TAB (7.5MG) ORALLY DAILY (DX:MAJOR DEPRESSIVE DISORDER) 09/23/19 23 023 Inactive Accu-Chek Guide test strips RxNorm: Use 1 Test Strip QID 09/15/19 023 Inactive ok to substitute with any covered alternative test strip Lancets,Thin 28 gauge RxNorm: Use 1 as directed QID 09/15/19 23 023 Inactive torsemide 20 mg tablet RxNorm: 170079 Take 1 Tablet(s) Oral BID 09/09/19 23 024 Inactive d/c once daily dosing carvedilol 25 mg tablet RxNorm: 324479 Take 1 Tablet(s) Oral QD 08/25/19 23 024 Inactive pregabalin 150 mg capsule RxNorm: 201591 1 Capsule(s) Oral HS at bed time 08/18/19 23 023 Inactive pregabalin 100 mg capsule RxNorm: 121377 1 Capsule(s) Oral QAM every morning 08/18/19 23 023 Inactive carvedilol 25 mg tablet RxNorm: 497910 1 Tablet(s) Oral QD 07/28/19 23 023 Inactive lisinopril 20 mg tablet RxNorm: 435329 Give 1 Tablet(s) Oral QD 07/28/19 23 023 Inactive Lyrica 150 mg capsule RxNorm: 847719 Take 1 Capsule(s) Oral QHS every night at bedtime 07/19/19 23 023 Inactive d/c 100mg dose Diflucan 150 mg tablet RxNorm: 929814 Take 1 Tablet(s) Oral QD repeat on day 3 and 6 07/19/19 23 023 Inactive pregabalin 100 mg capsule RxNorm: 511015 Take 1 Capsule(s) Oral QAM every morning 07/19/19 23 023 Inactive gatifloxacin 0.5 % eye drops RxNorm: 477945 Instill 1 Drop(s) as directed TID Instill 1 drop in to affected eye(s) starting 1 day prior to surgery and continue until gone (do not exceed 4 weeks). 07/13/19 23 023 Inactive carvedilol 25 mg tablet RxNorm: 224539 2 Tablet(s) Oral BID 07/13/19 023 Inactive Humulin R Regular U-100 Insulin 100 unit/mL injection solution RxNorm: 764592 85 Unit(s) Injection TID 07/13/19 023 Inactive ketorolac 0.5 % eye drops RxNorm: 459570 Instill 1 Drop(s) as directed QID Instill 1 drop into affected eye(s) 4 times daily starting 1 day prior to surgery and continue until gone (do not exceed 4 weeks). 07/13/19 023 Inactive Diflucan 150 mg tablet RxNorm: 754371 Take 1 Tablet(s) Oral QD repeat on day 3 and 6 06/30/19 023 Inactive Accu-Chek Guide test strips RxNorm: Use 1 Test Strip QID Use 1 test strip to monitor blood glucose 4 times daily and as needed. Dx:E11.42. 06/23/19 023 Inactive ok to substitute with any covered alternative test strip dextromethorphan-gu aifenesin 10 mg-100 mg/5 mL oral liquid RxNorm: 124712 Take 10 Milliliter(s) Oral every 4 hours as needed for cough 06/19/19 023 Inactive dextromethorphan-gu aifenesin 10 mg-100 mg/5 mL oral liquid RxNorm: 398150 Take 10 Milliliter(s) Oral every 4 hours as needed for cough 06/19/19 23 023 Inactive Lyrica 150 mg capsule RxNorm: 239774 Take 1 Capsule(s) Oral QHS every night at bedtime 06/18/19 23 023 Inactive d/c 100mg dose aripiprazole 15 mg tablet RxNorm: 633124 1/2 TAB (7.5MG) ORALLY DAILY (DX:MAJOR DEPRESSIVE DISORDER) 06/05/19 23 023 Inactive pregabalin 100 mg capsule RxNorm: 069923 1 Capsule(s) Oral QAM every morning 06/02/19 023 Inactive Banophen 50 mg capsule RxNorm: 2235898 Take 1 Capsule(s) Oral Q6H every 6 hours as needed 05/19/19 No Stop Date Active Novolog Flexpen U-100 Insulin aspart 100 unit/mL (3 mL) subcutaneous RxNorm: 4484791 Inject 10 Unit(s) Subcutaneous QHS every night at bedtime with nighttime snack 04/08/20 022 Inactive Novolog Flexpen U-100 Insulin aspart 100 unit/mL (3 mL) subcutaneous RxNorm: 3687046 Inject 42 Unit(s) Subcutaneous TID in addition to sliding scale 04/08/20 022 Inactive d/c 36u albuterol sulfate HFA 90 mcg/actuation aerosol inhaler RxNorm: 3980221 Take 2 Puff(s) Inhalation Q4H every four hours as needed as needed for SOB, cough, or wheezing 04/07/20 030 Active Banophen 50 mg capsule RxNorm: 2153668 Take 1 Capsule(s) Oral Q6H every 6 hours as needed 04/06/20 023 Inactive diphenhydramine 50 mg tablet RxNorm: 1000026 Take 1 Tablet(s) Oral Q6H every 6 hours as needed 04/06/20 022 Inactive diphenhydramine 50 mg tablet RxNorm: 2839802 1 Tablet(s) Oral Q6H every 6 hours as needed 04/06/20 022 Inactive Abilify 15 mg tablet RxNorm: 317614 1/2 Tablet(s) Oral QD 03/10/20 22 023 Inactive Shingrix (PF) 50 mcg/0.5 mL intramuscular suspension, kit RxNorm: 4033957 Administer 1/2 Milliliter(s) Intramuscular QD one time shingrix step 2 ( step 1 given 11/04/21) WITH needle - Nursing please administer upon arrival and once administered post a bridge 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, 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, 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, and lot# so we can update [facility] 02/18/20 22 Inactive dispense with needle Shingrix (PF) 50 mcg/0.5 mL intramuscular suspension, kit RxNorm: 2082589 Administer 1/2 Milliliter(s) Intramuscular QD one time shingrix step 2 ( step 1 given 11/04/21) WITH needle - Nursing please administer upon arrival and once administered post a bridge message 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, 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, 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, and lot# so we can update [facility] 02/18/20 22 022 Inactive dispense with needle polyethylene glycol 3350 17 gram/dose oral powder RxNorm: 250872 Take 17=1 capful Gram(s) Oral QD mix with 4-8oz of liquid 01/08/20 22 023 Inactive take this in addition to BID prn order Lyrica 100 mg capsule RxNorm: 172434 Take 1 Capsule(s) Oral QAM every morning 01/08/20 22 022 Inactive d/c 50mg dose acetaminophen 500 mg tablet RxNorm: 164871 Take 1 Tablet(s) Oral TID 01/08/20 22 022 Inactive d/c PRN order Lyrica 150 mg capsule RxNorm: 524860 Take 1 Capsule(s) Oral QHS every night at bedtime 01/08/20 22 023 Inactive d/c 100mg dose Abilify 5 mg tablet RxNorm: 601592 Take 1 Tablet(s) Oral QD take 1 tab po QD #30 refill 5 dx: MDD 12/12/19 22 022 Inactive Abilify 5 mg tablet RxNorm: 012264 Take 1 Tablet(s) Oral QD take 1 tab po QD #30 refill 5 dx: MDD 12/12/19 22 022 Inactive Novolog Flexpen U-100 Insulin aspart 100 unit/mL (3 mL) subcutaneous RxNorm: 4726400 Inject 42 Unit(s) Subcutaneous TID in addition to sliding scale 12/10/19 22 022 Inactive d/c 36u chlorthalidone 25 mg tablet RxNorm: 424088 Take 1 Tablet(s) Oral QAM every morning 12/10/19 22 023 Inactive pregabalin 50 mg capsule RxNorm: 704667 Take 1 Capsule(s) Oral QAM every morning 11/12/19 22 022 Inactive tetanus-diphtheria toxoids-Td 2 Lf unit-2 Lf unit/0.5 mL IM suspension RxNorm: 139 Take 0.5 Miscellaneous Intramuscular 11/12/19 22 022 Inactive need tdap - nursing to administer upon arrival pregabalin 50 mg capsule RxNorm: 767893 Take 1 Capsule(s) Oral QAM every morning 10/16/19 22 022 Inactive pregabalin 50 mg capsule RxNorm: 408533 Take 1 Capsule(s) Oral QAM every morning 10/16/19 22 022 Inactive pregabalin 50 mg capsule RxNorm: 792788 1 Capsule(s) Oral QAM every morning 10/15/19 22 022 Inactive Shingrix (PF) 50 mcg/0.5 mL intramuscular suspension, kit RxNorm: 6224971 Administer 1/2 Milliliter(s) Intramuscular one time Nursing please administer upon arrival and once administered post a bridge message 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 10/09/19 22 022 Inactive shingrix step 1 cholecalciferol (vitamin D3) 1,250 mcg (50,000 unit) capsule RxNorm: 916353 Take 1 Capsule(s) Oral QW once a [...] aspart 100 unit/mL (3 mL) subcutaneous RxNorm: 4595841 Inject 10 Unit(s) Subcutaneous QHS every night at bedtime with nighttime snack 10/08/19 22 Inactive Shingrix (PF) 50 mcg/0.5 mL intramuscular suspension, kit RxNorm: 9604935 ADMINISTER 2-DOSE SERIES PER CDC GUIDELINES 10/08/19 22 Active Shingrix (PF) 50 mcg/0.5 mL intramuscular suspension, kit RxNorm: 8749928 ADMINISTER 2-DOSE SERIES PER CDC GUIDELINES 10/08/19 22 Inactive Novolog Flexpen U-100 Insulin aspart 100 unit/mL (3 mL) subcutaneous RxNorm: 1818226 Inject 36 Unit(s) Subcutaneous TID in addition to sliding scale 10/08/19 22 Inactive Novofine Autocover 30 gauge x 1/3 needle RxNorm: Use 1 Miscellaneous UD as directed Use 1 needle as directed to administer insulin 5 times a day Dx:E11.42. 10/03/19 Inactive ok to substitute with any covered alternative pen needle benzoyl peroxide 10 % topical cleanser RxNorm: 580227 Apply 1 Application Topical QD apply to face, wash rinse and dry once daily (may change to QOD if drying) 08/19/19 22 022 Inactive (%covered by insurance) #60ml refill 11 dx: acne benzoyl peroxide 10 % topical cleanser RxNorm: 014343 Apply 1 Application Topical QD apply to face, wash rinse and dry once daily (may change to QOD if drying) 08/19/19 22 022 Inactive (%covered by insurance) #60ml refill 11 dx: acne benzoyl peroxide 10 % topical cleanser RxNorm: 511455 Apply 1 Application Topical QD apply to face, wash rinse and dry once daily (may change to QOD if drying) 08/19/19 22 022 Inactive (%covered by insurance) #60ml refill 11 dx: acne Lyrica 50 mg capsule RxNorm: 349380 Take 1 Capsule(s) Oral QAM every morning Take 1 capsule by mouth once daily 08/19/19 22 022 Inactive benzoyl peroxide 10 % topical cleanser RxNorm: 149935 Apply 1 Application Topical QD apply to face, wash rinse and dry once daily (may change to QOD if drying) 08/19/19 22 022 Inactive (%covered by insurance) #60ml refill 11 dx: acne Lyrica 100 mg capsule RxNorm: 036223 Take 1 Capsule(s) Oral QHS every night at bedtime Take 1 capsule by mouth once daily at bedtime 08/19/19 022 Inactive Lyrica 100 mg capsule RxNorm: 631325 Take 1 Capsule(s) Oral QHS every night at bedtime Take 1 capsule by mouth once daily at bedtime 08/16/19 22 022 Inactive Lyrica 50 mg capsule RxNorm: 348485 Take 1 Capsule(s) Oral QAM every morning Take 1 capsule by mouth once daily 08/16/19 22 022 Inactive Levemir FlexTouch U-100 Insulin 100 unit/mL (3 mL) subcutaneous pen RxNorm: 907023 Inject 86 Unit(s) Subcutaneous BID 08/05/19 22 022 Inactive d/c 83units BID Lyrica 100 mg capsule RxNorm: 894190 Take 1 Capsule(s) Oral QHS every night at bedtime Take 1 capsule by mouth once daily at bedtime 07/14/19 22 022 Inactive Lyrica 50 mg capsule RxNorm: 782324 Take 1 Capsule(s) Oral QAM every morning Take 1 capsule by mouth once daily 07/14/19 22 022 Inactive Levemir FlexTouch U-100 Insulin 100 unit/mL (3 mL) subcutaneous pen RxNorm: 142425 Inject 83 Unit(s) Subcutaneous BID 07/08/19 22 [...] test strip hydralazine 50 mg tablet RxNorm: 181668 Take 1 Tablet(s) Oral QID 05/05/20 21 022 Inactive venlafaxine ER 225 mg tablet,extended release 24 hr RxNorm: 939191 Take 1 Tablet(s) Oral QD 05/05/20 21 021 Inactive venlafaxine ER 225 mg tablet,extended release 24 hr RxNorm: 192650 Take 1 Tablet(s) Oral QD 05/05/20 21 022 Inactive isosorbide mononitrate ER 30 mg tablet,extended release 24 hr RxNorm: 767492 Take 1 Tablet(s) Oral QD 05/05/20 21 024 Inactive hydralazine 50 mg tablet RxNorm: 273937 Take 1 Tablet(s) Oral QID 05/05/20 21 021 Inactive aspirin 81 mg tablet,delayed release RxNorm: 217393 Take 1 Tablet(s) Oral QD 03/31/20 022 Inactive Vitamin D2 1,250 mcg (50,000 unit) capsule RxNorm: 6814575 Take 1 Capsule(s) Oral QW once a week x 12 weeks 03/31/20 022 Inactive Vitamin D2 1,250 mcg (50,000 unit) capsule RxNorm: 4936397 Take 1 Capsule(s) Oral QW once a week 03/31/20 021 Inactive Zetia 10 mg tablet RxNorm: 433535 Take 1 Tablet(s) Oral QD 03/31/20 024 Inactive Zetia 10 mg tablet RxNorm: 865905 Take 1 Tablet(s) Oral QD 03/31/20 021 Inactive hydralazine 25 mg tablet RxNorm: 865704 Take 1 Tablet(s) Oral QID 03/31/20 21 021 Inactive hydralazine 25 mg tablet RxNorm: 643300 Take 1 Tablet(s) Oral QID 03/31/20 021 Inactive hydralazine 10 mg tablet RxNorm: 367935 Take 1 Tablet(s) Oral QID 03/03/20 021 Inactive cephalexin 500 mg tablet RxNorm: 120074 Take 1 Tablet(s) Oral QID 02/27/20 021 Inactive cephalexin 500 mg tablet RxNorm: 077444 Take 1 Tablet(s) Oral QID 02/27/20 21 021 Inactive lisinopril 40 mg tablet RxNorm: 651818 Take 1 Tablet(s) Oral QD 02/11/20 21 023 Inactive Eliquis 5 mg tablet RxNorm: 5335959 Take 1 Tablet(s) Oral BID 01/05/20 21 022 Inactive Eliquis 5 mg tablet RxNorm: 1486001 Take 2 Tablet(s) Oral QD 01/01/20 21 021 Inactive Lyrica 50 mg capsule RxNorm: 220749 Take 1 Capsule(s) Oral QAM every morning 12/24/19 21 021 Inactive Lyrica 100 mg capsule RxNorm: 130870 Take 1 Capsule(s) Oral QHS every night at bedtime 12/24/19 21 021 Inactive clotrimazole 1 % topical cream RxNorm: 895607 Apply to right foot and toes Topical BID 12/04/19 21 023 Inactive metoprolol succinate ER 200 mg tablet,extended release 24 hr RxNorm: 603276 Take 1 Tablet(s) Oral QD 12/04/19 21 023 Inactive ciprofloxacin 500 mg tablet RxNorm: 725124 Take 1 Tablet(s) Oral QD 11/30/19 21 021 Inactive DX ofloxacin otic drops Accu-Chek Guide test strips RxNorm: USE 1 TO CHECK GLUCOSE 4 TIMES DAILY AND NEEDED 11/15/19 21 023 Inactive Blood Glucose Test strips RxNorm: Use 1 Test Strip QID at PRN 11/05/19 21 023 Inactive E11.42 lisinopril 30 mg tablet RxNorm: 076719 Take 1 Tablet(s) Oral QD 10/30/19 021 Inactive lisinopril 20 mg tablet RxNorm: 596370 Take 1 Tablet(s) Oral QD 10/23/19 21 021 Inactive lisinopril 20 mg tablet RxNorm: 017700 Take 1 Tablet(s) Oral QD 10/23/19 21 021 Inactive lisinopril 10 mg tablet RxNorm: 452156 Take 1 Tablet(s) Oral QD 10/02/19 21 021 Inactive icosapent ethyl 1 gram capsule RxNorm: 4982059 Take 2 Capsule(s) (2 gm) Oral BID with meals 09/12/19 21 024 Inactive Okay to dispense one 2gm tab if you have that available. icosapent ethyl 1 gram capsule RxNorm: 8368661 Take 2 Capsule(s) Oral BID 09/12/19 21 021 Inactive Okay to dispense one 2gm tab if you have that available. amlodipine 10 mg tablet RxNorm: 072885 Take 1 Tablet(s) Oral QD 09/04/19 Inactive aspirin 81 mg tablet,delayed release RxNorm: 173261 Take 1 Tablet(s) Oral QD 09/04/19 21 021 Inactive Levemir FlexTouch U-100 Insulin 100 unit/mL (3 mL) subcutaneous pen RxNorm: 833728 Inject 150 Unit(s) Subcutaneous BID 09/04/19 21 022 Inactive venlafaxine ER 150 mg tablet,extended release 24 hr RxNorm: 038383 Take 1 Tablet(s) Oral QD 09/04/19 21 Inactive clotrimazole-betame thasone 1 %-0.05 % topical cream RxNorm: 997487 Apply to rash on red area on left abdomen/chest Topical BID 08/10/19 21 Inactive amlodipine 5 mg tablet RxNorm: 042908 Take 1 Tablet(s) Oral QD 07/31/19 Inactive cephalexin 500 mg tablet RxNorm: 382190 Take 1 Tablet(s) Oral BID BID - Twice Daily 07/31/19 Inactive Start 08/01/20 pantoprazole 40 mg tablet,delayed release RxNorm: 848205 Take 1 Tablet(s) Oral QAM every morning 07/08/19 022 Inactive senna 8.6 mg tablet RxNorm: 516782 Take 1 Tablet(s) Oral QD 07/08/19 022 Inactive carbamazepine 200 mg tablet RxNorm: 422139 Take 1 Tablet(s) Oral BID 07/08/19 022 Inactive clopidogrel 75 mg tablet RxNorm: 232296 Take 1 Tablet(s) Oral QD 07/08/19 021 Inactive Blood Glucose Test strips RxNorm: Use 1 Test Strip QID at PRN 07/08/19 21 Inactive E11.42 Novolog Flexpen U-100 Insulin aspart 100 unit/mL (3 mL) subcutaneous RxNorm: 8923105 Administer per sliding scale Milliliter(s) Subcutaneous TID 151-200: 10 u; 201-250: 20 u; 251-300: 30 u; 301-350: 40 u; 351-400: 50 u. 07/08/19 21 022 Inactive lisinopril 5 mg tablet RxNorm: 689921 Take 1 Tablet(s) Oral QD 07/08/19 021 Inactive Novolog Flexpen U-100 Insulin aspart 100 unit/mL (3 mL) subcutaneous RxNorm: 6545848 Inject 85 Unit(s) Subcutaneous TID 07/08/19 022 Inactive pravastatin 80 mg tablet RxNorm: 557702 Take 1 Tablet(s) Oral QHS every night at bedtime 07/08/19 023 Inactive clotrimazole 1 % topical cream RxNorm: 206444 Apply to bilateral groin areas Topical BID 07/08/19 022 Inactive metoprolol succinate ER 200 mg tablet,extended release 24 hr RxNorm: 475693 Take 1 Tablet(s) Oral QD 07/08/19 021 Inactive Vitamin D3 25 mcg (1,000 unit) tablet RxNorm: 329961 Take 1 Tablet(s) Oral QD 07/08/19 021 Inactive isosorbide dinitrate 30 mg tablet RxNorm: 682267 Take 1 Tablet(s) Oral QD 07/08/19 021 Inactive Levemir FlexTouch U-100 Insulin 100 unit/mL (3 mL) subcutaneous pen RxNorm: 014370 Inject 140 Unit(s) Subcutaneous BID 07/08/19 021 Inactive torsemide 20 mg tablet RxNorm: 421645 Take 1 Tablet(s) Oral QD 07/08/19 023 Inactive venlafaxine 75 mg tablet RxNorm: 933730 Take 1 Tablet(s) Oral QD 07/08/19 021 Inactive acetaminophen 500 mg tablet RxNorm: 858140 Take 1 Tablet(s) Oral TID as needed for headache 06/18/19 21 021 Inactive acetaminophen 500 mg tablet RxNorm: 151813 Take 1 Tablet(s) Oral TID as needed for headache 06/18/19 21 021 Inactive Lyrica 100 mg capsule RxNorm: 710065 Take 1 Capsule(s) Oral QHS every night at bedtime 06/11/19 21 021 Inactive Lyrica 50 mg capsule RxNorm: 156132 Take 1 Capsule(s) Oral QAM every morning 06/10/19 21 021 Inactive hydrocortisone 2.5 % topical cream RxNorm: 342325 Apply to bilateral groin creases Topical BID 05/15/20 20 021 Inactive clotrimazole 1 % topical cream RxNorm: 447618 Apply to bilateral groin areas Topical BID 05/15/20 20 021 Inactive Lyrica 50 mg capsule RxNorm: 203408 Take 1 Capsule(s) Oral QAM every morning 05/14/20 20 020 Inactive Lyrica 100 mg capsule RxNorm: 977216 Take 1 Capsule(s) Oral QHS every night [...] Inactive Nystop 100,000 unit/gram topical powder RxNorm: 326122 Apply to abd folds, under breasts and L side of groin Topical BID x 14 days, then BID PRN 04/08/20 20 020 Inactive dx: yeast dermatitis Lyrica 100 mg capsule RxNorm: 658191 Take 1 Capsule(s) Oral QHS every night at bedtime 03/13/20 20 Inactive Lyrica 50 mg capsule RxNorm: 746341 Take 1 Capsule(s) Oral QAM every morning 03/13/20 20 Inactive ketoconazole 2 % shampoo RxNorm: 796459 Apply Topical two times a week with showers 03/11/20 20 Inactive cholecalciferol (vitamin D3) 50 mcg (2,000 unit) tablet RxNorm: 768258 Take 1 Tablet(s) Oral QD 03/11/20 20 Inactive Zetia 10 mg tablet RxNorm: 880732 Take 1 Tablet(s) Oral QD 03/07/20 20 021 Inactive Zetia 10 mg tablet RxNorm: 624961 Take 1 Tablet(s) Oral QD 03/07/20 20 Inactive Lyrica 50 mg capsule RxNorm: 134006 Take 1 Capsule(s) Oral QAM every morning 02/15/20 20 Inactive Lyrica 100 mg capsule RxNorm: 992300 Take 1 Capsule(s) Oral QHS every night at bedtime 02/15/20 20 Inactive Lyrica 100 mg capsule RxNorm: 317165 Take 1 Capsule(s) Oral QHS every night at bedtime 02/15/20 20 Inactive Lyrica 50 mg capsule RxNorm: 790408 Take 1 Capsule(s) Oral QAM every morning 02/15/20 20 Inactive metoprolol succinate ER 200 mg tablet,extended release 24 hr RxNorm: 670943 Take 1 Tablet(s) Oral QD 08/12/19 23 Active loperamide 2 mg capsule RxNorm: 371791 Take 1 Capsule(s) Oral QID as needed 06/12/19 22 Active hydralazine 50 mg tablet RxNorm: 924239 Take 1 Tablet(s) Oral QID 08/12/19 23 Active Soft Touch Lancets RxNorm: miscellaneous 03/04/20 24 Active venlafaxine ER 75 mg capsule,extended release 24 hr RxNorm: 311020 Take 3 Capsule(s) Oral QD 06/12/19 22 023 Inactive polyethylene glycol 3350 17 gram/dose oral powder RxNorm: 883641 Take 17=1 capful Gram(s) Oral BID as needed mix with 4-8oz of liquid 06/12/19 22 024 Inactive icosapent ethyl 1 gram capsule RxNorm: 1473766 Take 2 Capsule(s) (2 gm) Oral BID with meals 10/07/19 23 023 Inactive Okay to dispense one 2gm tab if you have that available. Levemir FlexTouch U-100 Insulin 100 unit/mL (3 mL) subcutaneous pen RxNorm: 954739 Inject 80 Unit(s) Subcutaneous BID 07/14/19 23 023 Inactive Novolog Flexpen U-100 Insulin aspart 100 unit/mL (3 mL) subcutaneous RxNorm: 0736299 Insert 30 Unit(s) Subcutaneous TID with meals [...] [facility] WPtel: [id number] [id number] [place] Referral Records Received 09/21/2022 Referral: [facility] WPtel: [id number] [id number] [place] Referral Completed 05/28/2021 Referral: General Cardiology [...] [facility] medical [facility] to have closer nursing attention.??Sister Jyotsna involved in his care cell# [phone]??Guardian: Giulia (tapan met in person 09/01/21), now [...] ).??Bobbi note from 11.08.2023 at [facility] (follow up 6 months)Colon & Rectal Surgery visit scheduled for 03/08/24 with Matilde Pérez PA-C.?? 02/08/2024
--- OUTSIDE RECORDS SUMMARY | 2024-03-09 00:44 | XMS_ITS | Clinical Summary ---
Author Organization [facility] Address [address] [place] [address] Phone Care Team Providers Care Offset Second Press Operator Name Role Phone Mellisa Shirley PA-C Primary Care Provider [phone] Allergies Active Allergy Reactions Criticality Noted Date [...] 2 Active cholecalciferol (VITAMIN D-3) 1.25 MG (93443 UT) capsule Take 1,250 mcg by mouth [...] to complete this topic [place] [address] MEDICARE Care Teams Offset Second Press Operator Relationship Specialty Start Date End Date Mellisa Shirley PA-C PCP - General Physician Processing Specialist 08/31/22
--- OUTSIDE RECORDS SUMMARY | 2024-03-09 00:44 | XMS_ITS | CCD ---
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 RxNorm: 760788 Take 1 Tablet(s) Oral QD 12/04/19 21 023 Inactive ciprofloxacin 500 mg tablet RxNorm: 597209 Take 1 Tablet(s) Oral QD 11/30/19 21 021 Inactive DX ofloxacin otic drops Accu-Chek Guide test strips RxNorm: USE 1 TO CHECK GLUCOSE 4 TIMES DAILY AND NEEDED 11/15/19 21 023 Inactive Blood Glucose Test strips RxNorm: Use 1 Test Strip QID at PRN 11/05/19 21 023 Inactive E11.42 lisinopril 30 mg tablet RxNorm: 966567 Take 1 Tablet(s) Oral QD 10/30/19 021 Inactive lisinopril 20 mg tablet RxNorm: 805126 Take 1 Tablet(s) Oral QD 10/23/19 21 021 Inactive lisinopril 20 mg tablet RxNorm: 359918 Take 1 Tablet(s) Oral QD 10/23/19 21 021 Inactive lisinopril 10 mg tablet RxNorm: 915883 Take 1 Tablet(s) Oral QD 10/02/19 21 021 Inactive icosapent ethyl 1 gram capsule RxNorm: 6900933 Take 2 Capsule(s) (2 gm) Oral BID with meals 09/12/19 21 024 Inactive Okay to dispense one 2gm tab if you have that available. icosapent ethyl 1 gram capsule RxNorm: 5177002 Take 2 Capsule(s) Oral BID 09/12/19 21 021 Inactive Okay to dispense one 2gm tab if you have that available. amlodipine 10 mg tablet RxNorm: 698318 Take 1 Tablet(s) Oral QD 09/04/19 Inactive aspirin 81 mg tablet,delayed release RxNorm: 546591 Take 1 Tablet(s) Oral QD 09/04/19 21 021 Inactive Levemir FlexTouch U-100 Insulin 100 unit/mL (3 mL) subcutaneous pen RxNorm: 434507 Inject 150 Unit(s) Subcutaneous BID 09/04/19 21 022 Inactive venlafaxine ER 150 mg tablet,extended release 24 hr RxNorm: 897423 Take 1 Tablet(s) Oral QD 09/04/19 21 Inactive clotrimazole-betame thasone 1 %-0.05 % topical cream RxNorm: 355522 Apply to rash on red area on left abdomen/chest Topical BID 08/10/19 21 Inactive amlodipine 5 mg tablet RxNorm: 727210 Take 1 Tablet(s) Oral QD 07/31/19 Inactive cephalexin 500 mg tablet RxNorm: 467945 Take 1 Tablet(s) Oral BID BID - Twice Daily 07/31/19 Inactive Start 08/01/20 pantoprazole 40 mg tablet,delayed release RxNorm: 141328 Take 1 Tablet(s) Oral QAM every morning 07/08/19 022 Inactive senna 8.6 mg tablet RxNorm: 396580 Take 1 Tablet(s) Oral QD 07/08/19 022 Inactive carbamazepine 200 mg tablet RxNorm: 195911 Take 1 Tablet(s) Oral BID 07/08/19 022 Inactive clopidogrel 75 mg tablet RxNorm: 964346 Take 1 Tablet(s) Oral QD 07/08/19 021 Inactive Blood Glucose Test strips RxNorm: Use 1 Test Strip QID at PRN 07/08/19 21 Inactive E11.42 Novolog Flexpen U-100 Insulin aspart 100 unit/mL (3 mL) subcutaneous RxNorm: 1299583 Administer per sliding scale Milliliter(s) Subcutaneous TID 151-200: 10 u; 201-250: 20 u; 251-300: 30 u; 301-350: 40 u; 351-400: 50 u. 07/08/19 21 022 Inactive lisinopril 5 mg tablet RxNorm: 373266 Take 1 Tablet(s) Oral QD 07/08/19 021 Inactive Novolog Flexpen U-100 Insulin aspart 100 unit/mL (3 mL) subcutaneous RxNorm: 7934227 Inject 85 Unit(s) Subcutaneous TID 07/08/19 022 Inactive pravastatin 80 mg tablet RxNorm: 892388 Take 1 Tablet(s) Oral QHS every night at bedtime 07/08/19 023 Inactive clotrimazole 1 % topical cream RxNorm: 126937 Apply to bilateral groin areas Topical BID 07/08/19 022 Inactive metoprolol succinate ER 200 mg tablet,extended release 24 hr RxNorm: 061028 Take 1 Tablet(s) Oral QD 07/08/19 021 Inactive Vitamin D3 25 mcg (1,000 unit) tablet RxNorm: 727315 Take 1 Tablet(s) Oral QD 07/08/19 021 Inactive isosorbide dinitrate 30 mg tablet RxNorm: 768420 Take 1 Tablet(s) Oral QD 07/08/19 021 Inactive Levemir FlexTouch U-100 Insulin 100 unit/mL (3 mL) subcutaneous pen RxNorm: 527915 Inject 140 Unit(s) Subcutaneous BID 07/08/19 021 Inactive torsemide 20 mg tablet RxNorm: 151091 Take 1 Tablet(s) Oral QD 07/08/19 023 Inactive venlafaxine 75 mg tablet RxNorm: 501383 Take 1 Tablet(s) Oral QD 07/08/19 021 Inactive acetaminophen 500 mg tablet RxNorm: 223833 Take 1 Tablet(s) Oral TID as needed for headache 06/18/19 21 021 Inactive acetaminophen 500 mg tablet RxNorm: 282122 Take 1 Tablet(s) Oral TID as needed for headache 06/18/19 21 021 Inactive Lyrica 100 mg capsule RxNorm: 283611 Take 1 Capsule(s) Oral QHS every night at bedtime 06/11/19 21 021 Inactive Lyrica 50 mg capsule RxNorm: 490650 Take 1 Capsule(s) Oral QAM every morning 06/10/19 21 021 Inactive hydrocortisone 2.5 % topical cream RxNorm: 610789 Apply to bilateral groin creases Topical BID 05/15/20 20 021 Inactive clotrimazole 1 % topical cream RxNorm: 409773 Apply to bilateral groin areas Topical BID 05/15/20 20 021 Inactive Lyrica 50 mg capsule RxNorm: 622054 Take 1 Capsule(s) Oral QAM every morning 05/14/20 20 020 Inactive Lyrica 100 mg capsule RxNorm: 520997 Take 1 Capsule(s) Oral QHS every night [...] Inactive Nystop 100,000 unit/gram topical powder RxNorm: 581236 Apply to abd folds, under breasts and L side of groin Topical BID x 14 days, then BID PRN 04/08/20 20 020 Inactive dx: yeast dermatitis Lyrica 100 mg capsule RxNorm: 138115 Take 1 Capsule(s) Oral QHS every night at bedtime 03/13/20 20 Inactive Lyrica 50 mg capsule RxNorm: 555549 Take 1 Capsule(s) Oral QAM every morning 03/13/20 20 Inactive ketoconazole 2 % shampoo RxNorm: 312222 Apply Topical two times a week with showers 03/11/20 20 Inactive cholecalciferol (vitamin D3) 50 mcg (2,000 unit) tablet RxNorm: 437936 Take 1 Tablet(s) Oral QD 03/11/20 20 Inactive Zetia 10 mg tablet RxNorm: 989270 Take 1 Tablet(s) Oral QD 03/07/20 20 021 Inactive Zetia 10 mg tablet RxNorm: 282437 Take 1 Tablet(s) Oral QD 03/07/20 20 Inactive Lyrica 50 mg capsule RxNorm: 195330 Take 1 Capsule(s) Oral QAM every morning 02/15/20 20 Inactive Lyrica 100 mg capsule RxNorm: 675122 Take 1 Capsule(s) Oral QHS every night at bedtime 02/15/20 20 Inactive Lyrica 100 mg capsule RxNorm: 099602 Take 1 Capsule(s) Oral QHS every night at bedtime 02/15/20 20 Inactive Lyrica 50 mg capsule RxNorm: 492841 Take 1 Capsule(s) Oral QAM every morning 02/15/20 20 Inactive metoprolol succinate ER 200 mg tablet,extended release 24 hr RxNorm: 709563 Take 1 Tablet(s) Oral QD 08/12/19 23 Active loperamide 2 mg capsule RxNorm: 012420 Take 1 Capsule(s) Oral QID as needed 06/12/19 22 Active hydralazine 50 mg tablet RxNorm: 384086 Take 1 Tablet(s) Oral QID 08/12/19 23 Active Soft Touch Lancets RxNorm: miscellaneous 03/04/20 24 Active venlafaxine ER 75 mg capsule,extended release 24 hr RxNorm: 595623 Take 3 Capsule(s) Oral QD 06/12/19 22 023 Inactive polyethylene glycol 3350 17 gram/dose oral powder RxNorm: 343385 Take 17=1 capful Gram(s) Oral BID as needed mix with 4-8oz of liquid 06/12/19 22 024 Inactive icosapent ethyl 1 gram capsule RxNorm: 7680565 Take 2 Capsule(s) (2 gm) Oral BID with meals 10/07/19 23 023 Inactive Okay to dispense one 2gm tab if you have that available. Levemir FlexTouch U-100 Insulin 100 unit/mL (3 mL) subcutaneous pen RxNorm: 649666 Inject 80 Unit(s) Subcutaneous BID 07/14/19 23 023 Inactive Novolog Flexpen U-100 Insulin aspart 100 unit/mL (3 mL) subcutaneous RxNorm: 5235112 Insert 30 Unit(s) Subcutaneous TID with meals [...] Status Date Referral: [facility] WPtel: [address], [address] [id number] [place] Referral Records Received 09/21/2022 Referral: [facility] WPtel: [address] [id number] [place] Referral Completed 05/28/2021 Referral: General Cardiology Referral Complet ed 01/03/2021 Referral: General Psychologist Referral Close d Referral: General Psychiatrist Referral Patient/Family Scheduling Appointment Referral: General Physical Medicine Referral Facility Scheduling Appointment Instructions Comment Date Leonid is a?? Male being seen living at [facility]. Initial BPS visit 01/2020. PMHx including DMII, CAD w/ 5 stents, Depression, Seizure Disorder and CKD stage 3. He moved into [facility] in 12/2019 but after a hospitalization 05/2021 he moved to [facility] to have closer nursing attention.??Sister Jyotsna involved in his care cell# [phone]??Guardian: Giulia (tapan met in person 09/01/21), now [...] ).??Bobbi note from 11.08.2023 at [facility] (follow up 6 months)Colon & Rectal Surgery visit scheduled for 03/08/24 with Matilde Pérez PA-C.?? 02/08/2024
--- OUTSIDE RECORDS SUMMARY | 2024-03-09 00:45 | XMS_ITS | Encounter Summary ---
Author Organization [facility] Address [address] 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 Name Role Phone Services, [facility] Physician Primary Care Provi sadia Prince Tobar MD Unavailable Prince Tobar MD Unavailable Matilde Pérez PA-C Unavailable [phone] Reason for Visit * Reason Onset Date Comments Previsit 03/08/2024 Encounter Details Date Type Department Care Team (Late st Contact Info) Description 03/08/2024 PRE VISIT [facility] [address] [place] [address] Matilde Pérez PA-C [address] [place] [address] Previsit Social History Tobacco Use Types Packs/Day Years Used Date Smoking Tobacco: Never Smokeless Tobacco: Never Alcohol Use Standard Drinks/Week Comments Not Currently 0 (1 standard drink = 0.6 oz pur e alcohol) Adolescent Education Answer Date Record ed Getting School Help Needed Not on file 02/13 Sex and Gender Information Value Date Recorded Sex Assigned at Not on file Legal Sex Male 3:35 AM [employer] Gender Identity Not on file Sexual Orientation Choose not to disclose 2021 8:14 AM [employer] documented as of this encounter Miscellaneous Notes * Telephone Encounter - Duyen Mahmood - 12/31/2023 7:45 AM CDT Diagnosis, Referred by & from: Anal Fissure, External Hemorrhoids Appt date: 03/08/2024 NOTES STATUS DETAILS OFFICE NOTE from referring provider N/A OFFICE NOTE from other specialist N/A DISCHARGE SUMMARY from hospital N/A DISCHARGE REPORT from the ER Internal [facility]: 12/28/23 - ED OV with Dr. Cesar 09/23/22 - ED OV with Dr. Ram OPERATIVE REPORT N/A MEDICATION LIST Internal LABS ANAL PAP/CEA N/A BIOPSIES/PATHOLOGY RELATED TO DIAGNOSIS N/A DIAGNOSTIC PROCEDURES PFC TESTING (from the Pelvic floor center includes Manometry, PDNL, EMG, etc.) N/A COLONOSCOPY (most recent all time after 5 years) N/A FLEX SIGMOIDOSCOPY N/A UPPER ENDOSCOPY (EGD) N/A ERCP N/A IMAGING (DISC & REPORT) CT N/A MRI N/A XRAY N/A ULTRASOUND (ENDOANAL/ENDORECTAL) N/A documented in this encounter Plan of Treatment Not on file documented as of this encounter Visit Diagnoses Not on filedocumented in this encounter Care Teams Gyroscopic Instrument Mechanic Relationship Specialty Start Date End Date Services, [facility] Physician [address] [place] [address] PCP - General 05/22/21 Prince Tobar MD [address] [place] [address] Cardiovascular Disease 03/26/22 Prince Tobar MD [address] [place] [address] Assigned Heart and Vascular Provider 05/30/22 Matilde Pérez PA-C [address] [place] [address] [id number] Physician Kiln Firer Physician Kiln Firer - Surgical 12/30/23 documented as of this encounter
--- OUTSIDE RECORDS SUMMARY | 2024-03-09 00:45 | XMS_ITS | Referral Summary ---
Author Organization [place] Address [address] [place] [address] Care Team Providers Care Senior Paralegal Name Role Phone Services, [facility] Physician Primary Care Provi sadia Prince Tobar MD Unavailable Prince Tobar MD Unavailable Matilde Pérez PA-C Unavailable [phone] Encounters Date Type Department Care Team Description 03/08/2024 PRE VISIT [facility] [address] 4th [place] [address] Matilde Pérez PA-C Previsit 03/07/2024 5:35 PM CDT - 03/08/2024 8:21 PM CDT Emergency [facility] Emergency Dept [address] [place] [address] Sandra Monroy MD [place], Samuel, MD McDonald, Lindsey E, DO Hyperglycemia (Primary Dx); Urinary tract infection with hematuria, site unspecified Discharge Disposition: Home or Self Care 03/07/2024 Travel 12/28/2023 6:08 PM CDT - 12/29/2023 12:59 AM CDT Emergency [facility] Emergency Dept [address] [place] [address] Agustin Cesar MD Anal fissure; External hemorrhoids Discharge Disposition: Home or Self Care 12/28/2023 Travel from Last 3 Months Allergies Active Allergy Reactions Criticality Noted Date Comments Lisinopril 01/29/2012 Other reaction(s): Hyperkalemia Metformin 12/23/2015 Other reaction(s): Chest Pain Back pain, arm pain Medications pantoprazole (PROTONIX) 40 MG EC tablet Take [...] daily Active cholecalciferol (VITAMIN D3) 1250 mcg (99160 units) capsule Take 1,250 mcg by mouth every 7 days on Wednesdays. Active venlafaxine (EFFEXOR-XR) 75 MG 24 hr capsule Take 225 mg by mouth daily Active hydrALAZINE (APRESOLINE) 50 MG tablet Take 50 mg by mouth 4 times daily Active polyethylene glycol (MIRALAX) 17 GM/Dose powder Take 17 g by mouth daily Active nystatin (MYCOSTATIN) 597240 UNIT/GM external powder Apply topically 2 times [...] isosorbide mononitrate (IMDUR) 60 MG 24 hr tabletIndications :Chest pain, unspecified type Take 1 tablet (60 mg) by mouth daily 30 tablet 1 12/19/19 23 Active nitroGLYcerin 0.2% ointment Apply 1 click (0.25 g) topically 2 times daily for 7 days 4 g 12/28/19 24 Active cephALEXin (KEFLEX) 500 MG capsule Take 1 capsule (500 mg) by mouth 2 times daily for 7 days. 14 capsule 03/08/20 24 024 Active insulin glargine (LANTUS PEN) 100 UNIT/ML pen Inject 30 Units subcutaneously 2 times daily. 18 mL 03/08/20 24 024 Active insulin reg HIGH CONC (HUMULIN R U-500 KWIKPEN) 500 UNIT/ML PEN soln Inject 100 Units subcutaneously 3 times daily (before meals). 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 Gender Identity Not on file Sexual Orientation Choose not to disclose 2021 8:14 AM INTERNET ASSESSOR Last Filed Vital Signs Vital Sign Reading Time Taken Comments Blood Pressure 131/66 03/08/2024 7:50 PM CDT Pulse 76 03/08/2024 7:50 PM CDT Temperature 36.6 ??C (97.8 ??F) 03/08/2024 7:44 AM CD T Respiratory Rate 16 03/07/2024 5:07 PM CDT Oxygen Saturation 96% 03/08/2024 7:52 PM CDT Inhaled Oxygen Concentration - - Weight 172.4 kg (380 lb) 03/07/2024 5:07 PM CDT Height 170.2 cm (5' 7) 03/07/2024 5:07 PM CDT Body Mass Index 59.52 03/07/2024 5:07 PM CDT Plan of Treatment Not on file Procedures Procedure Name Priority Date/Time Associated Diagnosis Comments GLUCOSE BY METER STAT 03/08/2024 6:50 PM CDT GLUCOSE BY METER STAT 03/08/2024 4:21 PM CDT GLUCOSE BY METER STAT 03/08/2024 12:2 0 PM CDT ROUTINE UA WITH MICROSCOPIC STAT 03/08/2024 8:29 AM CDT GLUCOSE BY METER STAT 03/08/2024 8:07 AM CDT GLUCOSE BY METER STAT 03/08/2024 5:58 AM CDT GLUCOSE BY METER STAT 03/08/2024 4:10 AM CDT GLUCOSE BY METER STAT 03/08/2024 2:54 AM CDT GLUCOSE BY METER STAT 03/08/2024 1:48 AM CDT BASIC METABOLIC PANEL STAT 03/07/2024 9:50 PM CDT BLOOD GAS VENOUS STAT 03/07/2024 8:06 PM CDT KETONE BETA-HYDROXYBUTYRATE QUANTITATIVE, RAPID STAT 03/07/2024 7:02 PM CDT GLUCOSE BY METER STAT 03/07/2024 7:02 PM CDT EXTRA PURPLE TOP TUBE STAT 03/07/2024 7:02 PM CDT EXTRA RED TOP TUBE STAT 03/07/2024 7: 02 PM CDT EXTRA BLUE TOP TUBE STAT 03/07/2024 7 :02 PM CDT EXTRA TUBE STAT 03/07/2024 7:02 PM CDT BASIC METABOLIC PANEL STAT 03/07/2024 7:02 PM CDT ABO/RH TYPE AND SCREEN STAT [...] without heart failure Atherosclerotic heart disease of [place] coronary artery without angina pectoris Body mass index (BMI) 60.0-69.9, adult (H) Chronic kidney disease, unspecified from Last 3 Months or Most Recently Relevant to Health Maintenance Results * (ABNORMAL) Glucose by meter (03/08/2024 6:50 PM CDT) Only the most recent of9 resultswithin the time period is included. GLUCOSE BY METER POCT 131(H) 70 - 99 mg/dL 03/08/2024 6:57 PM CDT [facility] LABORATORY POC Blood, Capillary BLOOD SPECIMEN / Unknown 03/08/2024 6:50 PM CDT 03/08/2024 6:57 PM CDT us Vera Lopez DO LAB - BEAKER POCT Final Re sult LABORATORY [facility] Acute Care Lab [address] [facility] Lab (1st floor, no room number) [place] [address] * (ABNORMAL) UA with Microscopic (03/08/2024 8:29 AM CDT) Color Urine Dark Brown(A) Colorless, Straw, Light Yellow, Yellow 03/08/2024 8:53 AM CDT LABORATORY Appearance Urine Cloudy(A) Clear 03/08/20 8:53 AM CDT LABORATORY Glucose Urine >=1000(A) Negative mg/dL 03/08/2024 8:53 AM CDT LABORATORY Bilirubin Urine Negative Negative 8:53 AM CDT LABORATORY Ketones Urine Negative Negative mg/dL 03/08/2024 8:53 AM CDT LABORATORY Specific [place] Urine 1.023 1.003 - 1.035 03/08/2024 8:53 AM CDT LABORATORY Blood Urine Large(A) Negative 03/08/2024 8:53 AM CDT LABORATORY pH Urine 7.5(H) 5.0 - 7.0 03/08/2024 8:53 AM CDT LABORATORY Protein Albumin Urine 600(A) Negative mg/dL 03/08/2024 8:53 AM CDT LABORATORY Urobilinogen Urine 2.0 Normal, 2.0 mg/dL 03/08/2024 8:53 AM CDT LABORATORY Nitrite Urine Negative Negative 03/08/2024 8:53 AM CDT LABORATORY Leukocyte Esterase Urine Large(A) Negative 03/08/2024 8:53 AM CDT LABORATORY RBC Urine >182(H) <=2 /HPF 03/08/2024 8:53 AM CDT LABORATORY WBC Urine >182(H) <=5 /HPF 03/08/2024 8:53 AM CDT LABORATORY Transitional Epithelials Urine 2(H) <=1 /HPF 03/08/2024 8:53 AM CDT LABORATORY Urine URINE SPECIMEN FROM URINARY CONDUIT / Unknown Non-blood Collection / Unknown 03/08/2024 8:29 AM CDT 03/08/2024 8:35 AM CDT us Vera Lopez DO LAB - URINE ORDERABLES Fin al Result LABORATORY [facility] Acute Care Lab [address] Lab (1st floor, no room number) [place] [address] * (ABNORMAL) Basic metabolic panel (BMP) (03/07/2024 9:50 PM CDT) Only the most recent of2 resultswithin the time period is included. Sodium 133(L) 135 - 145 mmol/L 03/07/2024 10:25 PM CDT LABORATORY Potassium 4.4 3.4 - 5.3 mmol/L 03/07/2024 10:25 PM CDT LABORATORY Comment:Specimen slightly he molyzed. The reported potassium value may be falsely elevated. Analysis of a non-hemolyzed specimen (i.e. re-draw) may result in a lower potassium value. Chloride 90(L) 98 - 107 mmol/L 03/07/2024 10:25 PM CDT LABORATORY Carbon Dioxide (CO2) 28 22 - 29 mmol/L 03/07/2024 10:25 PM CDT LABORATORY Anion Gap 15 7 - 15 mmol/L 03/07/2024 10:25 PM CDT LABORATORY Urea Nitrogen 25.3(H) 8.0 - 23.0 mg/dL 03/07/2024 10:25 PM CDT [facility] Creatinine 1.18(H) 0.67 - 1.17 mg/dL 03/07/2024 10:25 PM CDT [facility] LAB[facility] GFR Estimate 69 >60 mL/min/1.7 3m2 03/07/2024 10:25 PM CDT [facility] LAB[facility] Comment:eGFR calculated usin 2020 CKD-EPI equation. Calcium 8.7(L) 8.8 - 10.4 mg/dL 03/07/2024 10:25 PM CDT [facility] Comment:Reference intervals for this test were updated on 11/30/2023 to reflect our healthy population more accurately. There may be differences in the flagging of prior results with similar values performed with this method. Those prior results can be interpreted in the context of the updated reference intervals. Glucose 397(H) 70 - 99 mg/dL 03/07/2024 10:25 PM CDT [facility] Blood BLOOD SPECIMEN / Unknown Venipuncture / Unknown 03/07/2024 9:50 PM CDT 03/07/2024 9:54 PM CDT us Sandra Monroy MD LAB - BLOOD ORDERABLES Fin al Result [facility] LABORATORY [facility] Acute Care Lab [address] [facility] Lab (1st floor, no room number) [place] [address], [facility] * (ABNORMAL) Blood gas venous (03/07/2024 8:06 PM CDT) pH Venous 7.42 7.32 - 7.43 03/07/2024 8:15 PM CDT [facility] LAB[facility] pCO2 Venous 52(H) 40 - 50 mm Hg 03/07/2024 8:15 PM CDT [facility] pO2 Venous 32 25 - 47 mm Hg 03/07/2024 8:15 PM CDT [facility] Bicarbonate Venous 34(H) 21 - 28 mmol/L 03/07/2024 8:15 PM CDT [facility] Base Excess/Deficit Venous 7.8(H) -3.0 - 3.0 mmol/L 03/07/2024 8:15 PM CDT [facility] LAB[facility] FIO2 0 RITA 03/07/2024 8:15 PM CDT [facility] Oxyhemoglobin Venous 61(L) 70 - 75 % 03/07/2024 8:15 PM CDT [facility] O2 Sat, Venous 62.0(L) 70.0 - 75.0 % 03/07/2024 8:15 PM CDT [facility] Blood, venous STRUCTURE OF RIGHT UPPER LIMB / Unknown Venipuncture / Unknown 03/07/2024 8:06 PM CDT 03/07/2024 8:11 PM CDT Narrative [facility] - 03/07/2024 8:15 PM CDT In healthy individuals, oxyhemoglobin (O2Hb) and oxygen saturation (SO2) are approximately equal. In the presence of dyshemoglobins, oxyhemoglobin can be considerably lower than oxygen saturation. us Sandra Monroy MD LAB - BLOOD ORDERABLES Fin al Result Performing Organization Address City/[facility]/ZIP Co de Phone Number [facility] [address] [employer] Lab (1st floor, no room number) [place] [address], [place] * Extra Purple Top Tube (03/07/2024 7:02 PM CDT) Hold Specimen [facility] 03/07/2024 8:07 PM CDT [facility] LAB[facility] Blood STRUCTURE OF RIGHT UPPER LIMB / Unknown Venipuncture / Unknown 03/07/2024 7:02 PM CDT 03/07/2024 7:07 PM CDT us Sandra Monroy MD LAB - BLOOD ORDERABLES Fin al Result [facility] [address] Lab (1st floor, no room number) [place] [address] * Extra Red Top Tube (03/07/2024 7:02 PM CDT) Hold Specimen [facility] 03/07/2024 8:07 PM CDT [facility] LABORAT[facility] Blood STRUCTURE OF RIGHT UPPER LIMB / Unknown Venipuncture / Unknown 03/07/2024 7:02 PM CDT 03/07/2024 7:07 PM CDT Sandra Monroy MD LAB - BLOOD ORDERABLES Fin al Result [facility] [address] Lab (1st floor, no room number) [place] [address] * Extra Blue Top Tube (03/07/2024 7:02 PM CDT) Hold Specimen [facility] 03/07/2024 8:07 PM CDT LABORATORY Blood STRUCTURE OF RIGHT UPPER LIMB / Unknown Venipuncture / Unknown 03/07/2024 7:02 PM CDT 03/07/2024 7:07 PM CDT Sandra Monroy MD LAB - BLOOD ORDERABLES Fin al Result Performing Organization Address [facility] Co de Phone Number [facility] [address] Lab (1st floor, no room number) [place] [address], [facility] * (ABNORMAL) Ketone Beta-Hydroxybutyrate Quantitative (03/07/2024 7:02 PM CDT) [facility] Ketone (Beta-Hydroxybuty rate) Quantitative 0.44(H) <=0.30 mmol/L 03/07/2024 8:09 PM CDT LABORATORY Blood STRUCTURE OF RIGHT UPPER LIMB / Unknown Venipuncture / Unknown 03/07/2024 7:02 PM CDT 03/07/2024 7:07 PM CDT Sandra Monroy MD LAB - BLOOD ORDERABLES Fin al Result [facility] [address] Lab (1st floor, no room number) [place] [address], [facility] * (ABNORMAL) CBC with platelets and differential (12/28/2023 6:41 PM CDT) [facility] WBC Count 5.9 4.0 - 11.0 10e3/uL [...] CDT Agustin Cesar MD LAB - BLOOD ORDERABLES Final Result [facility] LABORATORY [facility] Care Lab [address] Lab (1st floor, no room number) [place] [address] * Adult Type and Screen (12/28/2023 6:41 PM CDT) ABO/RH(D) A POS 12/28/2023 6:28 PM CDT RH BLOOD BANK Antibody Screen Negative Negative 12/28/2023 6:28 PM CDT RH BLOOD BANK SPECIMEN EXPIRATION DATE [id number] 12/28/2023 6:28 PM CDT RH BLOOD BANK Blood STRUCTURE OF RIGHT UPPER LIMB / Unknown Venipuncture / Unknown 12/28/2023 6:41 PM CDT 12/28/2023 6:46 PM CDT Agustin Cesar MD LAB - BLOOD BANK TEST O RDER Final Result RH BLOOD BANK [address] [place] [address] * INR (12/28/2023 6:41 PM CDT) INR 1.01 0.85 - 1.15 12/28/2023 7:00 PM CDT [facility] LABORATORY Blood STRUCTURE OF RIGHT UPPER LIMB / Unknown Venipuncture / Unknown 12/28/2023 6:41 PM CDT 12/28/2023 6:46 PM CDT Agustin Cesar MD LAB - BLOOD ORDERABLES Final Result LABORATORY [facility] Lab [address] Lab (1st floor, no room number) [place] [address] * Partial thromboplastin time (12/28/2023 6:41 PM CDT) aPTT 28 22 - 38 Seconds 12/28/2023 7:00 PM CDT LABORATORY Blood STRUCTURE OF RIGHT UPPER LIMB / Unknown Venipuncture / Unknown 12/28/2023 6:41 PM CDT 12/28/2023 6:46 PM CDT Agustin Cesar MD LAB - BLOOD ORDERABLES Final Result Performing Organization Address City/[facility]/ZIP Co de Phone Number LABORATORY [facility] Care Lab [address] Lab (1st floor, no room number) [place] [address], [facility] * (ABNORMAL) Comprehensive metabolic panel (12/28/2023 6:41 [...] 6:41 PM CDT 12/28/2023 6:46 PM CDT us Agustin Cesar MD LAB - BLOOD ORDERABLES Final Result RH LABORATORY [facility] Lab [address] Lab (1st floor, no room number) [place] [address], [facility] * (ABNORMAL) Hemoglobin A1c (10/15/2023 3:13 PM CDT) Hemoglobin A1C 10.8(H) <5.7 % 10/15/2023 4:57 PM CDT [facility] LABORATORY Comment: Normal <5.7% Prediabetes 5.7-6.4% ?? Diabetes 6.5% or higher Note: Adopted from ADA consensus guidelines. Blood BLOOD SPECIMEN / Unknown Client Draw / Unknown 10/15/2023 3:13 PM CDT 10/15/2023 4:25 PM CDT Harrison Munson KIMBERLY LAB - BLOOD ORDERABLES Final Result [facility] Acute Care Lab [address] Lab (1st floor, no room number) [place] [address], [facility] from Last 3 Months or Most Recently Relevant to Health Maintenance Insurance [place] Advance Directives For more information, please contact: [phone] Documents on File Type Date Recorded Patient Network Pricing Consultant Expl anation Advance Directives and Living Will [...] patie nt/ legal decision maker Care Teams Senior Paralegal Relationship Specialty Start Date End Date Services, [facility] Physician [address] [place] [address] PCP - General 05/22/21 Prince Tobar MD [address] [place] [address] Cardiovascular Disease 03/26/22 Prince Tobar MD [address] [place], [place] [address] Assigned Heart and Vascular Provider 05/30/22 Matilde Pérez PA-C [address] [place] [phone] Physician Terminal Manager Physician Terminal Manager - Surgical 12/30/23
--- OUTSIDE RECORDS SUMMARY | 2024-03-09 00:45 | XMS_ITS | Encounter Summary ---
Author Organization [place] Address [address] [facility] 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 Gender Identity Not on file Sexual Orientation Choose not to disclose 2021 8:14 AM HEEL SPRAYER documented as of this encounter Plan of Treatment Not on file documented as of this encounter Visit Diagnoses Not on filedocumented in this encounter Care Teams Soakers Supervisor Relationship Specialty Start Date End Date Services, [facility] Physician [address] [place] [address] PCP - General 05/22/21 Prince Tobar MD [address] [place], [place] [address] Cardiovascular Disease 03/26/22 Prince Tobar MD [address] [place] [address] Assigned Heart and Vascular Provider 05/30/22 documented as of this encounter
--- OUTSIDE RECORDS SUMMARY | 2024-03-09 00:45 | XMS_ITS | Encounter Summary ---
Author Organization [facility] Address [address] [facility] [place] [address] Care Team Providers Care Compensation Consulting Manager Name Role Phone Services, [facility] Physician Primary Care Provi sadia Prince Tobar MD Unavailable Prince Tobar MD Unavailable Matilde Pérez PA-C Unavailable Reason for Visit * Reason Comments Hyperglycemia Social Work Services Encounter Details Date Type Department Care Team (Late st Contact Info) Description 03/07/2024 5:35 PM CDT - 03/08/2024 8:21 PM CDT Emergency [facility] Emergency Dept [address] [place] [address] Sandra Monroy MD [facility] [address] [place], [place] [id number] Tex David MD [facility] [address] [place] [address] Vera Lopez DO [facility] [address] [place] [address] Hyperglycemia (Primary Dx); Urinary tract infection with hematuria, site unspecified Discharge Disposition: Home or Self Care Social [...] on file Legal 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 * UTI (Urinary Tract Infection): Male (Cymraes) * Hyperglycemia: General Info (Cymraes) documented in this encounter Medications at Time of Discharge cephALEXin (KEFLEX) 500 MG capsule Take 1 capsule (500 mg) by mouth 2 times daily for 7 days. 14 capsule 4 03/15/20 24 insulin glargine (LANTUS PEN) 100 UNIT/ML pen Inject 30 Units subcutaneously 2 times daily. 18 mL 4 04/07/20 24 insulin reg HIGH CONC (HUMULIN R U-500 KWIKPEN) 500 UNIT/ML PEN soln Inject 100 Units subcutaneously 3 times daily (before meals). 18 mL 4 04/07/20 24 acetaminophen (TYLENOL) 500 MG tablet Take 500 [...] mouth daily cholecalciferol (VITAMIN D3) 1250 mcg (38093 units) capsule Take 1,250 mcg by mouth [...] isosorbide mononitrate (IMDUR) 60 MG 24 hr tabletIndications: Chest pain, unspecified type Take 1 tablet (60 mg) by mouth daily 30 tablet 1 3 ketoconazole (NIZORAL) 2 % external shampoo Apply topically every 3 days Apply topically to affected areas topically with showers loperamide (IMODIUM) 2 MG capsule Take 2 mg by mouth 4 times daily as needed for diarrhea metoprolol succinate ER (TOPROL XL) 200 MG 24 hr tablet Take 200 mg by mouth daily nystatin (MYCOSTATIN) 297960 UNIT/GM external powder Apply topically 2 times [...] mouth daily documented as of this encounter Consult Notes * Teresa Alexander, [facility] - 03/08/2024 5:47 PM CDTAssociated Order(s): CARE MANAGEMENT / SOCIAL WORK IP CONSULT; CARE MANAGEMENT / SOCIAL WORK IP CONSULT Summary: Discharge Planning Care Management Medical Half-Way Outpatient Consult Care management consulted by provider for long-term assessment. CM spoke with provider to discuss long-term case. Provider has confirmed patient is medically stable for discharge. Background information: Patient was brought into the ED via EMS because of blood sugars and the residential didn't have any insulin or pens for insulin to give them. Care team recommended discharge disposition: Return to his residential Resources needed for discharge: needs medications, insulin and pens Discharge plan secured to meet patient's needs? Yes Estimated timeline for discharge: less than 24 hours Barriers to discharge: Getting patient insulin Discussed above with provider & auditor in charge. Next steps: Anticipate patient will discharge within the next 24 hours to residential with medication support/resources for follow-up. Patient has an established discharge plan that can meet their needs as identified above. AGATA met with patient, all he wants to do is return to the residential. AGATA spoke with patient guardian, Joycelyn reported that the residential is having difficulty getting patient's insulin. She reports it is due to the residential changing pharmacies. AGATA verified patient's MA number which is active. Several calls placed to residential's pharmacy, [facility]. They wee not able to verified medications. Spoke with the RN at the residential,Fany [phone]. She reports that she has been calling pharmacy for the insulin but has not received it. [facility] is a mail in pharmacy so residential isn't sure when they will get the insulin. AGATA discussed with MD and charge nurse, plan was to see if the medications can be filled here. Once patient's insulin and pen can be verified. Patient will return to residential via wheelchair. ACE Palacio Fellmongering Machine Operator Inpatient Care Coordination Director Independent Public Relations Representative [facility] [phone] ACE Haque documented in this encounter ED Notes * Lena Mathis RN - 03/08/2024 5:18 PM CDT Spoke with Fany, nurse field account manager several times. She accepted report and is aware of how much insulinpatient will be sent home with. EMS will be arranged for transport home. * Vera Lopez DO - 03/08/2024 2:24 PM CDT I received patient in signout from Dr. David. Please refer to their complete H&P for further information. Briefly, patient is a 63 yo male with history of DM presenting from residential. He reports facility ran out of insulin and is unable to fill prescriptions from pharmacy for more insulin. Patient boarded overnight. At time of signout, AGATA eval pending. Patient UA appears infected, will plan for keflex initiation as well. Boarding orders written. 2:25 PM Patient signed out to Dr. Rajan. SW assessed patient within the past hour and is reportedly making phone calls to patient's preferred pharmacies about why they are not filling prescriptions today. Patient without acute complaints at bedside. Vera Lopez DO 03/08/24 1427 * Felicita Mclain RN - 03/08/2024 1:16 AM CDT Bed: ED17 Expected date: Expected time: Means of arrival: Comments: 37, clean * Rubia Zhao RN - 03/07/2024 8:40 PM CDT Attempted to call guardian with no response, no on-call number given. Charge updated * Tamiko Monzon RN - 03/07/2024 7:53 PM CDT Fany Nurse Treadle Cut Off Saw Operator at the [facility] phone: [phone]. Dianne Building Maintenance Superintendent: [phone] Fany states pt receives Humulin 100u TID and Basaglar 30u BID. She also states the only way she can take the pt back is if they come home with insulin as they have no ETA when they will be able to obtain his insulin due to insurance issues. * Evie Bai - 03/07/2024 7:50 PM CDT Bed: ED37 Expected date: Expected time: Means of arrival: Comments: Triage * Sandra Monroy MD - 03/07/2024 6:03 PM CDT Emergency Department Note History of Present Illness Chief Complaint Hyperglycemia and Social Work Services HPI Leonid Leahy is a 63 year old male who presents for hyperglycemia and social work issue. Patientreports his residential staff checked his blood sugar to be high. He states he does not feel sick. No fever, headache, chest pain, or diarrhea. Per EMS, residential facility informed them that insulin ran out and patient needs to present to ER for more insulin. The facility complains of neglect due to administration not refilling prescriptions. Patient notes he did have a morning dose, but no afternoon dose. He reports that he has hemorrhoids and notes an appointment with colon doctor tomorrow. Independent Historian EMS as detailed above. Review of External Notes Reviewed discharge summary from 12/18/2022 regarding chest pain, CAD, diabetes. Past Medical History Medical History and Problem List Past Medical History: Diagnosis Date Anemia of chronic renal failure Chronic kidney disease Deep vein thrombosis Depressive disorder DISH (diffuse idiopathic skeletal hyperostosis) Epilepsy Essential hypertriglyceridemia Gout Hypertension Obesity TASHI (obstructive sleep apnea) Type 2 diabetes mellitus Medications acetaminophen (TYLENOL) 500 MG tablet albuterol (PROAIR HFA/PROVENTIL HFA/VENTOLIN HFA) 108 (90 Base) MCG/ACT inhaler amLODIPine (NORVASC) 10 MG tablet apixaban ANTICOAGULANT (ELIQUIS) 5 MG tablet ARIPiprazole (ABILIFY) 15 MG tablet aspirin 81 MG EC tablet carBAMazepine (TEGRETOL) 200 MG tablet carvedilol (COREG) 25 MG tablet chlorthalidone (HYGROTON) 25 MG tablet cholecalciferol (VITAMIN D3) 1250 mcg (52545 units) capsule clotrimazole (LOTRIMIN) 1 % external [...] (TOPROL XL) 200 MG 24 hr tablet nitroGLYcerin 0.2% ointment nystatin (MYCOSTATIN) 618599 UNIT/GM external powder pantoprazole (PROTONIX) 40 MG [...] for the past 24 hrs: BP Temp Pulse Resp SpO2 Height Weight 03/07/24 1707 (!) 151/66 97.4 ??F (36.3 ??C) 80 16 94 % 1.702 m (5' 7) (!) 172.4 kg (380 lb) Physical Exam General: Resting on the bed. Head: No obvious trauma to head. Ears, Nose, Throat: External ears normal. Nose normal. Eyes: Conjunctivae clear. Pupils are equal, round, and reactive. Neck: Normal range of motion. Neck supple. CV: Regular rate and rhythm. No murmurs. Respiratory: Effort normal and breath sounds normal. No wheezing or crackles. Gastrointestinal: Soft. No distension. There is no tenderness. There is no rigidity, no rebound andno guarding. Neuro: Alert. Moving all extremities appropriately. Normal speech. Skin: Skin is warm and dry. No rash noted. Diagnostics Lab Results Labs Ordered and Resulted from Time of ED Arrival to Time of ED Departure BASIC METABOLIC PANEL - Abnormal Result Value Sodium 132 (*) Potassium 3.5 Chloride 89 (*) Carbon Dioxide (CO2) 27 Anion Gap 16 (*) Urea Nitrogen 26.2 (*) Creatinine 1.28 (*) GFR Estimate 62 Calcium 8.6 (*) Glucose 442 (*) GLUCOSE BY METER - Abnormal GLUCOSE BY METER POCT 388 (*) BLOOD GAS VENOUS - Abnormal pH Venous 7.42 pCO2 Venous 52 (*) pO2 Venous 32 Bicarbonate Venous 34 (*) Base Excess/Deficit Venous 7.8 (*) FIO2 0 Oxyhemoglobin Venous 61 (*) O2 Sat, Venous 62.0 (*) KETONE BETA-HYDROXYBUTYRATE QUANTITATIVE, RAPID - Abnormal Ketone (Beta-Hydroxybutyrate) Quantitative 0.44 (*) BASIC METABOLIC PANEL - Abnormal Sodium 133 (*) Potassium 4.4 Chloride 90 (*) Carbon Dioxide (CO2) 28 Anion Gap 15 Urea Nitrogen 25.3 (*) Creatinine 1.18 (*) GFR Estimate 69 Calcium 8.7 (*) Glucose 397 (*) GLUCOSE MONITOR NURSING POCT GLUCOSE MONITOR NURSING POCT GLUCOSE MONITOR NURSING POCT GLUCOSE MONITOR NURSING POCT GLUCOSE MONITOR NURSING POCT GLUCOSE MONITOR NURSING POCT Imaging No orders to display Independent Interpretation None ED Course Medications Administered Medications apixaban ANTICOAGULANT (ELIQUIS) tablet 5 mg (has no administration in time range) amLODIPine (NORVASC) tablet 10 mg (has no administration in time range) ARIPiprazole (ABILIFY) half-tab 7.5 mg (has no administration in time range) carBAMazepine (TEGretol) tablet 200 mg (has no administration in time range) carvedilol (COREG) tablet 25 mg (has no administration in time range) chlorthalidone (HYGROTON) tablet 25 mg (has no administration in time range) ezetimibe (ZETIA) tablet 10 mg (has no administration in time range) hydrALAZINE (APRESOLINE) tablet 50 mg (has no administration in time range) insulin reg HIGH CONC (HumuLIN R U-500 KwikPen) PEN 500 Units/mL (has no administration in time range) isosorbide mononitrate (IMDUR) 24 hr tablet 60 mg (has no administration in time range) metoprolol succinate ER (TOPROL XL) 24 hr tablet 200 mg (has no administration in time range) pantoprazole (PROTONIX) EC tablet 40 mg (has no administration in time range) torsemide (DEMADEX) tablet 20 mg (has no administration in time range) pregabalin (LYRICA) capsule 150 mg (has no administration in time range) pregabalin (LYRICA) capsule 100 mg (has no administration in time range) venlafaxine (EFFEXOR XR) 24 hr capsule 225 mg (has no administration in time range) insulin glargine (LANTUS PEN) injection 30 Units (has no administration in time range) sodium chloride 0.9% BOLUS 1,000 mL (1,000 mLs Intravenous $New Bag 03/07/242046) Procedures Procedures Discussion of Management None ED Course ED Course as of 03/08/24226e Mar 07, [id number] I obtained history and examined the patient as noted above. 1813 I left voicemail for patient's guardian. 1945 Nurse got report from , gets Humulin 100 units TID and Basaglar 30 units BID. Sandra [phone] 1948 I spoke with Andressa, pharmacist, regarding the patient. Wed Mar 08, 20246 Tried to talk to about dispo planning 124 I reassessed the patient and discussed plan. He agrees. Additional Documentation None Medical Decision Making / Diagnosis [facility] Diagnoses: None MIPS None MDM Leonid Leahy is a 63 year old male who presents emergency department with hyperglycemia and medication issues. Vital signs are reassuring. Broad differential was considered including not limited to electrolyte, metabolic, renal dysfunction, DKA, infection, medication noncompliance, social concerns, etc. Initial sugar is elevated at 388. Patient reports that he has been out of his insulin today. He denies any other associated symptoms. Initial BMP does show mild anion gap and persistent hyperglycemia. pH is neutral, no suggestion of acidosis. Ketones are mildly elevated at 0.44 likely related to patient's not receiving his medication and not having eaten this evening. 1 L fluids showed resolution of anion gap. Without evidence of acidosis I do not see the signs of DKA. Rather I think that patient needs to be resumed on his subcutaneous medications. Orders for these were placed. Unfortunately there is significant social concerns at his care facility. They do not have access ability to get his insulin. Thus patient is not deemed safe to go back to his residential. It is also quite difficult to get a hold of the residential staff. Therefore we will watch the patient overnight for case management and social work consultation to see if we can help facilitate medications for home and ensure the patient has a safe discharge plan. Of note voicemail left for the patient's guardian as they did not answer the phone either. Disposition Care of the patient was transferred to my colleague Dr. David pending SW/CM consult. Diagnosis ICD-10-CM 1. Hyperglycemia R73.9 Discharge Medications New Prescriptions No medications on file Scribe Disclosure: I, Lisa Chungei, am serving as a scribe at 6:03 PM on 03/07/2024 to document services personally performed by Sandra Monroy MD based on my observations and the provider's statements to me. Sandra Monroy MD 03/08/24 0229 * Felicita Mclain RN - 03/07/2024 5:01 PM CDT Patient THAD from residential for concerns of hyperglycemia. Upon EMS arrival to , staff told EMS that patient's insulin ran out and wanted patient to come to ER to be monitored to be monitored until tomorrow when he can get more insulin. Shaheed Oleary arrived on site and reported to EMS that this facility complaints of neglect due to administration not refilling prescriptions. Per EMS, patient's floor suffered severe in October and has still not been repaired. documented in this encounter Miscellaneous Notes * Pharmacy - Andressa Buitrago RPH - 03/08/2024 5:28 PM CDT Brief Emergency Department Pharmacist Note: Prescriptions sent to [facility] pharmacy for Lantus and Humulin U-500 pens. [facility] pharmacy called and is unable to fill the Lantus as refill too soon. Attempted to call pt's [facility] but they are closed. So called Nurse Treadle Cut Off Saw Operator, Fany, for the residential #[phone]. She stated that [facility] was able to fill both the Basaglar and Humulin U-500 pens yesterday and today and both are being delivered tonight. She was told that the Humulin U-500 would be delivered between 7693-0014 and the Basaglar would be delivered after midnight. Discussed with Fany, that we are unable to fill and dispense the Basalgar as insurance rejected stating refill too soon but are able to fill the Humulin U- 500. Fany is okay with pt just discharging wit the Humulin, as he has some leftover Basaglar at home and more Basaglar and Humulin U-500 is being delivered tonight. Spoke with [facility] Pharmacy, they only have one U-500 pen in stock and so will dispense the one pen. This will be enough to get patient by until the [facility] delivery is delivered to his residential this evening after 1999. No further action required. Andressa Buitrago, PharmD, [facility] Emergency Medicine Pharmacist [phone] or Deven March 08, 2024 Electronically signed by Andressa Buitrago [facility] at 03/08/2024 5:37 PM CDT documented in this encounter Plan of Treatment Not on file documented as of this encounter Procedures Procedure [...] GAS VENOUS STAT 03/07/2024 8:06 PM CDT EXTRA TUBE STAT 03/07/2024 7:02 PM CDT EXTRA PURPLE TOP TUBE STAT 03/07/2024 7:02 PM CDT EXTRA RED TOP TUBE STAT 03/07/2024 7: 02 PM CDT EXTRA BLUE TOP TUBE STAT 03/07/2024 7 :02 PM CDT GLUCOSE BY METER STAT 03/07/2024 7:02 PM CDT KETONE BETA-HYDROXYBUTYRATE QUANTITATIVE, RAPID STAT 03/07/2024 7:02 PM CDT BASIC METABOLIC PANEL STAT 03/07/2024 7:02 PM CDT documented in this encounter Results * (ABNORMAL) Glucose by meter (03/08/2024 6:50 PM CDT) GLUCOSE BY METER POCT 131(H) 70 - 99 mg/dL 03/08/2024 6:57 PM CDT [facility] LABORATORY POC Blood, Capillary BLOOD SPECIMEN / Unknown 03/08/2024 6:50 PM CDT 03/08/2024 6:57 PM CDT us Vera Lopez DO LAB - BEAKER POCT Final Re sult RH LABORATORY [facility] Acute Care Lab [address] [facility] Lab (1st floor, no room number) [place] [address], [facility] * (ABNORMAL) Glucose by meter (03/08/2024 4:21 PM CDT) GLUCOSE BY METER POCT 192(H) 70 - 99 mg/dL 03/08/2024 4:34 PM CDT [facility] LABORATORY POC Blood, Capillary BLOOD SPECIMEN / Unknown 03/08/2024 4:21 PM CDT 03/08/2024 4:34 PM CDT Vera Lopez DO LAB - BEAKER POCT Final Re sult RH LABORATORY [facility] Acute Care Lab [address] Lab (1st floor, no room number) [place] [address], [facility] * (ABNORMAL) Glucose by meter (03/08/2024 12:20 PM CDT) GLUCOSE BY METER POCT 202(H) 70 - 99 mg/dL 03/08/2024 12:26 PM CDT LABORATORY POC Blood, Capillary BLOOD SPECIMEN / Unknown 03/08/2024 12:20 PM CDT 03/08/2024 12:26 PM CDT Vera Vergarauziel OSUNA LAB - BEAKER POCT Final Re sult LABORATORY [facility] Care Lab [address] Lab (1st floor, no room number) [place] [address], [facility] * (ABNORMAL) UA with Microscopic (03/08/2024 8:29 AM CDT) Color Urine Dark Brown(A) Colorless, Straw, Light Yellow, Yellow 03/08/2024 8:53 AM CDT LABORATORY Appearance Urine Cloudy(A) Clear 03/08/20 8:53 AM CDT LABORATORY Glucose Urine >=1000(A) Negative mg/dL 03/08/2024 8:53 AM CDT LABORATORY Bilirubin Urine Negative Negative 8:53 AM CDT LABORATORY Ketones Urine Negative Negative mg/dL 03/08/2024 8:53 AM CDT LABORATORY Specific Patriot Urine 1.023 1.003 - 1.035 03/08/2024 8:53 [...] 8:29 AM CDT 03/08/2024 8:35 AM CDT Vera Lopez DO LAB - URINE ORDERABLES Fin al Result [facility] Lab [address] Lab (1st floor, no room number) [place] [address] * (ABNORMAL) Glucose by meter (03/08/2024 8:07 AM CDT) GLUCOSE BY METER POCT 294(H) 70 - 99 mg/dL 03/08/2024 8:20 AM CDT LABORATORY POC Blood, venous BLOOD SPECIMEN / Unknown 03/08/2024 8:07 AM CDT 03/08/2024 8:20 AM CDT Tex RIVERO - BEAKER POCT Final Resu lt [facility] Lab [address] Lab (1st floor, no room number) [place] [address], [facility] * (ABNORMAL) Glucose by meter (03/08/2024 5:58 AM CDT) GLUCOSE BY METER POCT 346(H) 70 - 99 mg/dL 03/08/2024 6:05 AM CDT LABORATORY POC Blood, Capillary BLOOD SPECIMEN / Unknown 03/08/2024 5:58 AM CDT 03/08/2024 6:05 AM CDT Tex David MD LAB - BEAKER POCT Final Resu lt LABORATORY [facility] Lab [address] Lab (1st floor, no room number) [place] [address], [facility] * (ABNORMAL) Glucose by meter (03/08/2024 4:10 AM CDT) GLUCOSE BY METER POCT 413(H) 70 - 99 mg/dL 03/08/2024 4:17 AM CDT LABORATORY POC Blood, Capillary BLOOD SPECIMEN / Unknown 03/08/2024 4:10 AM CDT 03/08/2024 4:17 AM CDT Tex David MD LAB - BEAKER POCT Final Resu lt LABORATORY [facility] Lab [address] Lab (1st floor, no room number) [place] [address], [facility] * (ABNORMAL) Glucose by meter (03/08/2024 2:54 AM CDT) GLUCOSE BY METER POCT 347(H) 70 - 99 mg/dL 03/08/2024 3:01 AM CDT LABORATORY POC Blood, Capillary BLOOD SPECIMEN / Unknown 03/08/2024 2:54 AM CDT 03/08/2024 3:01 AM CDT Tex David MD LAB - BEAKER POCT Final Resu lt LABORATORY [facility] Lab [address] Lab (1st floor, no room number) [place] [id number] * (ABNORMAL) Glucose by meter (03/08/2024 1:48 AM CDT) GLUCOSE BY METER POCT 401(H) 70 - 99 mg/dL 03/08/2024 2:31 AM CDT LABORATORY POC Blood, Capillary BLOOD SPECIMEN / Unknown 03/08/2024 1:48 AM CDT 03/08/2024 2:31 AM CDT Sandra Monroy MD LAB - BEAKER POCT Final Re sult Performing Organization Address [facility]/ZIP Co de Phone Number LABORATORY [facility] Lab [address] Lab (1st floor, no room number) [place] [phone] [place] [address] * (ABNORMAL) Basic metabolic panel (BMP) (03/07/2024 9:50 PM CDT) [facility] Sodium 133(L) 135 - 145 mmol/L 03/07/2024 [...] BLOOD ORDERABLES Fin al Result RH LABORATORY [facility] Acute Care Lab [address] [facility] Lab (1st floor, no room number) [place] [address], [facility] * (ABNORMAL) Blood gas venous (03/07/2024 8:06 [...] can be considerably lower than oxygen saturation. Sandra Monroy MD LAB - BLOOD ORDERABLES Fin al Result Performing Organization Address [facility] Co de Phone Number [facility] Lab [address] Lab (1st floor, no room number) [address] * (ABNORMAL) Ketone Beta-Hydroxybutyrate Quantitative (03/07/2024 7:02 PM CDT) Ketone (Beta-Hydroxybuty rate) Quantitative 0.44(H) <=0.30 mmol/L 03/07/2024 8:09 PM CDT RH LABORATORY Blood STRUCTURE OF RIGHT UPPER LIMB / Unknown Venipuncture / Unknown 03/07/2024 7:02 PM CDT 03/07/2024 7:07 PM CDT us Sandra Monroy MD LAB - BLOOD ORDERABLES Fin al Result [facility] Lab [address] Lab (1st floor, no room number) [address] * (ABNORMAL) Glucose by meter (03/07/2024 7:02 PM CDT) GLUCOSE BY METER POCT 388(H) 70 - 99 mg/dL 03/07/2024 7:09 PM CDT RH LABORATORY POC Blood, venous BLOOD SPECIMEN / Unknown 03/07/2024 7:02 PM CDT 03/07/2024 7:09 PM CDT us Sandra Monroy MD LAB - BEAKER POCT Final Re sult LABORATORY POC [facility] Care Lab [address] Lab (1st floor, no room number) [place] [address], [place] * Extra Purple Top Tube (03/07/2024 7:02 PM CDT) Hold Specimen [facility] 03/07/2024 8:07 PM CDT RH LABORATORY Blood STRUCTURE OF RIGHT UPPER LIMB / Unknown Venipuncture / Unknown 03/07/2024 7:02 PM CDT 03/07/2024 7:07 PM CDT us Sandra Monroy MD LAB - BLOOD ORDERABLES Fin al Result [facility] Lab [address] Lab (1st floor, no room number) [place] [phone] [place] [address] * Extra Red Top Tube (03/07/2024 7:02 PM CDT) Hold Specimen [facility] 03/07/2024 8:07 PM CDT RH LABORATORY Blood STRUCTURE OF RIGHT UPPER LIMB / Unknown Venipuncture / Unknown 03/07/2024 7:02 PM CDT 03/07/2024 7:07 PM CDT us Sandra Monroy MD LAB - BLOOD ORDERABLES Fin al Result [facility] Care Lab [address] Lab (1st floor, no room number) [place] [id number] * Extra Blue Top Tube (03/07/2024 7:02 PM CDT) Hold Specimen JIC 03/07/2024 8:07 PM CDT [facility] LABORATORY Blood STRUCTURE OF RIGHT UPPER LIMB / Unknown Venipuncture / Unknown 03/07/2024 7:02 PM CDT 03/07/2024 7:07 PM CDT us Sandra Monroy MD LAB - BLOOD ORDERABLES Fin al Result LABORATORY [facility] [address] [facility] Lab (1st floor, no room number) [place] [address], [facility] * (ABNORMAL) Basic metabolic panel (03/07/2024 7:02 PM CDT) Sodium 132(L) 135 - 145 mmol/L 03/07/2024 7:34 PM CDT LABORATORY Potassium 3.5 3.4 - 5.3 mmol/L 03/07/2024 7:34 PM CDT LABORATORY Chloride 89(L) 98 - 107 mmol/L 03/07/2024 7:34 PM CDT LABORATORY Carbon Dioxide (CO2) 27 22 - 29 mmol/L 03/07/2024 7:34 PM CDT RH LABORATORY Anion Gap 16(H) 7 - 15 mmol/L 03/07/2024 7:34 PM CDT RH LABORATORY Urea Nitrogen 26.2(H) 8.0 - 23.0 mg/dL 03/07/2024 7:34 PM CDT LABORATORY Creatinine 1.28(H) 0.67 - 1.17 mg/dL 03/07/2024 7:34 PM CDT RH LABORATORY GFR Estimate 62 >60 mL/min/1.7 3m2 03/07/2024 7:34 PM CDT RH LABORATORY Comment:eGFR calculated usin 2020 CKD-EPI equation. Calcium 8.6(L) 8.8 - 10.4 mg/dL 03/07/2024 7:34 PM CDT [facility] LABORATORY Comment:Reference intervals for this test were updated on 11/30/2023 to reflect our healthy population more accurately. There may be differences in the flagging of prior results with similar values performed with this method. Those prior results can be interpreted in the context of the updated reference intervals. Glucose 442(H) 70 - 99 mg/dL 03/07/2024 7:34 PM CDT LABORATORY Blood STRUCTURE OF RIGHT UPPER LIMB / Unknown Venipuncture / Unknown 03/07/2024 7:02 PM CDT 03/07/2024 7:07 PM CDT us Sandra Monroy MD LAB - BLOOD ORDERABLES Fin al Result LABORATORY [facility] [address] Lab (1st floor, no room number) [place] [address], [facility] documented in this encounter Visit Diagnoses Diagnosis Hyperglycemia- Primary Other abnormal glucose Urinary tract infection with hematuria, site unspecified documented in this encounter Administered Medications Inactive Administered Medications - up to 3 most recent administrations Medication Order MAR Action Action Date Dose Rate Site amLODIPine (NORVASC) tablet 10 mg 10 mg, Oral, EVERY MORNING, First dose on Wed03/08/24 at 1220 $Given 03/08/2024 12:43 PM CDT 10 mg apixaban ANTICOAGULANT (ELIQUIS) tablet 5 mg 5 mg, Oral, 2 TIMES DAILY, First dose on Wed03/08/24 at 1220, Indications: DVT-PE TreatmentIndications:DVT-PE Treatment $Given 03/08/2024 7:48 PM CDT 5 mg $Given 03/08/2024 12:46 PM CDT 5 mg ARIPiprazole (ABILIFY) half-tab 7.5 mg 7.5 mg, Oral, DAILY, First dose on Wed03/08/24 at 1220 $Given 03/08/2024 12:48 PM CDT 7.5 mg carBAMazepine (TEGretol) tablet 200 mg 200 mg, Oral, 2 TIMES DAILY, First dose on Wed03/08/24 at 1220 $Given 03/08/2024 12:47 PM CDT 200 mg carvedilol (COREG) tablet 25 mg 25 mg, Oral, DAILY, First dose on Wed03/08/24 at 1220, Tablets can be crushed and given via enteral route. $Given 03/08/2024 12:46 PM CDT 25 mg cephALEXin (KEFLEX) capsule 500 mg STAT, 500 mg, Oral, ONCE, On Wed03/08/24 at 1050, For 1 dose, Indications: Urinary Tract InfectionIndications:Urinary Tract Infection $Given 03/08/2024 12:45 PM CDT 500 mg chlorthalidone (HYGROTON) tablet 25 mg 25 mg, Oral, DAILY, First dose on Wed03/08/24 at 1220 $Given 03/08/2024 12:48 PM CDT 25 mg ezetimibe (ZETIA) tablet 10 mg 10 mg, Oral, DAILY, First dose on Wed03/08/24 at 1220 $Given 03/08/2024 12:49 PM CDT 10 mg hydrALAZINE (APRESOLINE) tablet 50 mg 50 mg, Oral, 4 TIMES DAILY, First dose on Wed03/08/24 at 1220 $Given 03/08/2024 7:48 PM CDT 50 mg $Given 03/08/2024 12:46 PM CDT 50 mg insulin glargine (LANTUS PEN) injection 30 Units 30 Units, Subcutaneous, 2 TIMES DAILY, First dose on Wed03/08/24 at 0115 $Given 03/08/2024 8:10 AM CDT 30 Units $Given 03/08/2024 3:00 AM CDT 30 Units insulin reg HIGH CONC (HumuLIN R U-500 KwikPen) PEN 500 Units/mL 100 Units, Subcutaneous, 3 TIMES DAILY BEFORE MEALS, First dose on Wed03/08/24 at 0115, Peter Keisha Malecha is a 63 year old male who has been using U-500 Insulin prior to admission. The insulin was supplied in a U-500 Pen. There is no dose conversion required with the pen. . $Given 03/08/2024 4:25 PM CDT 100 Units Left Upper Abdomen $Given 03/08/2024 9:36 AM CDT 100 Units $Given 03/08/2024 3:01 AM CDT 100 Units isosorbide mononitrate (IMDUR) 24 hr tablet 60 mg 60 mg, Oral, DAILY, First dose on Wed03/08/24 at 1225, DO NOT CRUSH. Can split tablet in half along score regi. $Given 03/08/2024 12:49 PM CDT 60 mg metoprolol succinate ER (TOPROL XL) 24 hr tablet 200 mg 200 mg, Oral, DAILY, First dose on Wed03/08/24 at 1225, DO NOT CRUSH. Tablet may be split in half along score line. $Given 03/08/2024 12:50 PM CDT 200 mg pantoprazole (PROTONIX) EC tablet 40 mg 40 mg, Oral, EVERY MORNING, First dose on Wed03/08/24 at 1225, DO NOT CRUSH. $Given 03/08/2024 12:43 PM CDT 40 mg pregabalin (LYRICA) capsule 100 mg 100 mg, Oral, EVERY MORNING, First dose on Wed03/08/24 at 1225 $Given 03/08/2024 12:51 PM CDT 100 mg sodium chloride 0.9% BOLUS 1,000 mL Intravenous, 1,000 mL, ONCE, at 1,000 mL/hr, Administer over 1 Hours, On Wed03/07/24 at 1945, For 1 dose $New Bag 03/07/2024 8:47 PM CDT 1,000 mLs 1000 mL/hr torsemide (DEMADEX) tablet 20 mg 20 mg, Oral, DAILY, First dose on Wed03/08/24 at 1225 $Given 03/08/2024 12:50 PM CDT 20 mg venlafaxine (EFFEXOR XR) 24 hr capsule 225 mg 225 mg, Oral, DAILY, First dose on Wed03/08/24 at 1225, DO NOT CRUSH. $Given 03/08/2024 12:50 PM CDT 225 mg documented in this encounter Active and Recently Administered Medications Times are shown in CDT. Scheduled Medication Order 03/06/2024 03/07/2024 03/08/2024 amLODIPine (NORVASC) tablet 10 mg 10 mg, Oral, EVERY MORNING, First dose on Wed03/08/24 at 1220 1243 ($Given - Provi sadia: Rae Irene RN) apixaban ANTICOAGULANT (ELIQUIS) tablet 5 mg 5 mg, Oral, 2 TIMES DAILY, First dose on Wed03/08/24 at 1220, Indications: DVT-PE Treatment 1246 ($Given - Provi sadia: Rae Irene RN)1948 ($Given - Provider: Lena Mathis RN) ARIPiprazole (ABILIFY) half-tab 7.5 mg 7.5 mg, Oral, DAILY, First dose on Wed03/08/24 at 1220 1248 ($Given - Provi sadia: Rae Irene RN) carBAMazepine (TEGretol) tablet 200 mg 200 mg, Oral, 2 TIMES DAILY, First dose on Wed03/08/24 at 1220 1247 ($Given - Provi sadia: Rae Irene RN)1999 (Canceled Entry - Provider: Orders Generic Provider - Comment: Automatically canceled at discontinue of medication order) carvedilol (COREG) tablet 25 mg 25 mg, Oral, DAILY, First dose on Wed03/08/24 at 1220, Tablets can be crushed and given via enteral route. 1246 ($Given - Provi sadia: Rae Irene RN) cephALEXin (KEFLEX) capsule 500 mg (COMPLETED) STAT, 500 mg, Oral, ONCE, On Wed03/08/24 at 1050, For 1 dose, Indications: Urinary Tract Infection 1245 ($Given - Provi sadia: Rae Irene RN - Comment: meds not verified) chlorthalidone (HYGROTON) tablet 25 mg 25 mg, Oral, DAILY, First dose on Wed03/08/24 at 1220 1248 ($Given - Provi sadia: Rae Irene RN) ezetimibe (ZETIA) tablet 10 mg 10 mg, Oral, DAILY, First dose on Wed03/08/24 at 1220 1249 ($Given - Provi sadia: Rae Irene RN) hydrALAZINE (APRESOLINE) tablet 50 mg 50 mg, Oral, 4 TIMES DAILY, First dose on Wed03/08/24 at 1220 1246 ($Given - Provi sadia: Rae Irene RN)1615 (Not Given - Provider: Lena Mathis RN - Reason: Other - Comment: Dose rescheduled to 6 hours after last dose)1948 ($Given - Provider: Lena Mathis RN)1999 (Canceled Entry - Provider: Orders Generic Provider - Comment: Automatically canceled at discontinue of medication order) insulin glargine (LANTUS PEN) injection 30 Units 30 Units, Subcutaneous, 2 TIMES DAILY, First dose on Wed03/08/24 at 0115 0300 ($Given - Provi sadia: Anel Willett RN)0810 ($Given - Provider: Rae Irene RN - Comment: BS 294)1999 (Canceled Entry - Provider: Orders Generic Provider - Comment: Automatically canceled at discontinue of medication order) insulin reg HIGH CONC (HumuLIN R U-500 KwikPen) PEN 500 Units/mL 100 Units, Subcutaneous, 3 TIMES DAILY BEFORE MEALS, First dose on Wed03/08/24 at 0115, Leonid Leahy is a 63 year old male who has been using U-500 Insulin prior to admission. The insulin was supplied in a U-500 Pen. There is no dose conversion required with the pen. . 0301 ($Given - Provi sadia: Anel Willett RN)0936 ($Given - Provider: Rae Irene RN - Comment: spoke to pharmacy- dose moved back)1329 (Not Given - Provider: Lena Ordonez RN - Reason: Order parameters not met - Comment: was given within the last 6 hours at 0936)1625 ($Given - Provider: Lena Mathis RN)2130 (Canceled Entry - Provider: Orders Generic Provider - Comment: Automatically canceled at discontinue of medication order) isosorbide mononitrate (IMDUR) 24 hr tablet 60 mg 60 mg, Oral, DAILY, First dose on Wed03/08/24 at 1225, DO NOT CRUSH. Can split tablet in half along score regi. 1249 ($Given - Provi sadia: Rae Irene RN) metoprolol succinate ER (TOPROL XL) 24 hr tablet 200 mg 200 mg, Oral, DAILY, First dose on Wed03/08/24 at 1225, DO NOT CRUSH. Tablet may be split in half along score line. 1250 ($Given - Provi sadia: Rae Irene RN) pantoprazole (PROTONIX) EC tablet 40 mg 40 mg, Oral, EVERY MORNING, First dose on Wed03/08/24 at 1225, DO NOT CRUSH. 1243 ($Given - Provi sadia: Rae Irene RN) pregabalin (LYRICA) capsule 100 mg 100 mg, Oral, EVERY MORNING, First dose on Wed03/08/24 at 1225 1251 ($Given - Provi sadia: Rae Irene RN) pregabalin (LYRICA) capsule 150 mg 150 mg, Oral, EVERY EVENING, First dose on Wed03/08/24 at 1999 1999 (Canceled Entry - Provider: Orders Generic Provider - Comment: Automatically canceled at discontinue of medication order) sodium chloride 0.9% BOLUS 1,000 mL (COMPLETED) Intravenous, 1,000 mL, ONCE, at 1,000 mL/hr, Administer over 1 Hours, On Wed03/07/24 at 1945, For 1 dose 7 ($New Bag - Provider: Rubia Zhao, STARLA) 0400 (Stopped - Provider: Anel Willett RN) torsemide (DEMADEX) tablet 20 mg 20 mg, Oral, DAILY, First dose on Wed03/08/24 at 1225 1250 ($Given - Provi sadia: Rae Irene, STARLA) venlafaxine (EFFEXOR XR) 24 hr capsule 225 mg 225 mg, Oral, DAILY, First dose on Wed03/08/24 at 1225, DO NOT CRUSH. 1250 ($Given - Provi sadia: Rae Irene, STARLA) documented in this encounter Care Teams Compensation Consulting Manager Relationship Specialty Start Date End Date Services, [facility] Physician [address] [place] [id number] PCP - General 05/22/21 Prince Tobar MD [address] [place] [address] [phone] Cardiovascular Disease 03/26/22 Prince Tobar MD [address] [place] [address] [phone] Assigned Heart and Vascular Provider 05/30/22 Matilde Pérez PA-C [address] [place], [place] [phone] Physician Shell Assembler Physician Shell Assembler - Surgical 12/30/23 documented as of this encounter
--- OUTSIDE RECORDS SUMMARY | 2024-03-09 00:45 | XMS_ITS | Encounter Summary ---
Author Organization [place] Address [address] [facility] 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 documented as of this encounter Plan of Treatment Not on file documented as of this encounter Visit Diagnoses Not on filedocumented in this encounter Care Teams Technical Sales Advisor Relationship Specialty Start Date End Date Services, [place] Physician [address] [place] [address], [facility] [address] [place] [address] PCP - General 05/22/21 Prince Tobar MD [address] [place] [address] Cardiovascular Disease 03/26/22 Prince Tobar MD [address] [place] [address] Assigned Heart and Vascular Provider 05/30/22 Matilde Pérez PA-C [address] [place] [address] [phone] Physician Police Pilot Physician Police Pilot - Surgical 12/30/23 documented as of this encounter
--- OUTSIDE RECORDS SUMMARY | 2024-03-09 00:45 | XMS_ITS | Clinical Summary ---
Author Organization [place] Address [address] [facility] [place] [address] Care Team Providers Care Sales Representative Education Courses Name Role Phone Services, [facility] Physician Primary Care Provi sadia Prince Tobar MD Unavailable Prince Tobar MD Unavailable Matilde Pérez PA-C Unavailable [phone] Allergies Active Allergy Reactions Criticality Noted Date [...] daily Active cholecalciferol (VITAMIN D3) 1250 mcg (35640 units) capsule Take 1,250 mcg by mouth every 7 days on Wednesdays. Active venlafaxine (EFFEXOR-XR) 75 MG 24 hr capsule Take 225 mg by mouth daily Active hydrALAZINE (APRESOLINE) 50 MG tablet Take 50 mg by mouth 4 times daily Active polyethylene glycol (MIRALAX) 17 GM/Dose powder Take 17 g by mouth daily Active nystatin (MYCOSTATIN) 035833 UNIT/GM external powder Apply topically 2 times [...] by mouth daily 30 tablet 1 12/19/19 Active nitroGLYcerin 0.2% ointment Apply 1 click (0.25 g) topically 2 times daily for 7 days 4 g 12/28/19 24 Active cephALEXin (KEFLEX) 500 MG capsule Take 1 capsule (500 mg) by mouth 2 times daily for 7 days. 14 capsule 03/08/20 24 Active insulin glargine (LANTUS PEN) 100 UNIT/ML [...] Department Care Team Description 03/08/[address] [facility] [address] [address] Matilde Pérez PA-C Previsit 03/07/2024 5:35 PM CDT - 03/08/2024 8:21 PM CDT Emergency [facility] Emergency Dept [address] [place] [address] Sandra Monroy MD [place], Samuel, MD McDonald, Lindsey E, Hyperglycemia (Primary Dx); Urinary tract infection with hematuria, site unspecified Discharge Disposition: Home or Self Care 03/07/2024 Travel 12/28/2023 6:08 PM CDT - 12/29/2023 12:59 AM CDT Emergency [facility] Emergency Dept [address] [place] [address] Agustin Csear MD Anal fissure; External hemorrhoids Discharge Disposition: Home or Self Care 12/28/2023 Travel from Last 3 Months Immunizations Name Administration Dates Next Due COVID-19 MONOVALENT 12+ (Pfizer) 06/25/2020,05/17 [id number] Novel Flu 05/07/2009 Hepatitis B, Adult 02/16/2014,10/12/2013, [...] on file 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 Gender Identity Not on file Sexual Orientation Choose not to disclose 2021 8: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 COLOR CHECKER 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.] BEAKER POCT Final Re sult RH LABORATORY POC [facility] [address] [facility], no room number[facility] [place] [address] * (ABNORMAL) UA with Microscopic (03/08/2024 8:29 AM CDT) Color Urine Dark Brown(A) Colorless, Straw, Light Yellow, Yellow 03/08/2024 8:53 AM CDT LABORATORY Appearance Urine Cloudy(A) Clear 03/08/20 8:53 AM CDT LABORATORY Glucose Urine >=1000(A) Negative mg/dL 03/08/2024 8:53 AM CDT LABORATORY Bilirubin Urine Negative Negative 8:53 AM CDT LABORATORY Ketones Urine Negative Negative mg/dL 03/08/2024 8:53 AM CDT LABORATORY Specific Mckenna Urine 1.023 1.003 - 1.035 03/08/2024 8:53 [...] - URINE ORDERABLES Fin al Result LABORATORY [facility] [address] Lab (1st floor, no room number) [place] [address], [facility] * (ABNORMAL) Basic metabolic panel (BMP) (03/07/2024 [...] - 23.0 mg/dL 03/07/2024 10:25 PM CDT LABORATORY Creatinine 1.18(H) 0.67 - 1.17 mg/dL 03/07/2024 10:25 PM CDT LABORATORY GFR Estimate 69 >60 mL/min/1.7 3m2 [...] BLOOD ORDERABLES Fin al Result RH LABORATORY [facility] [address] [facility] Lab (1st floor, no room number) [place] [address], [facility] * (ABNORMAL) Blood gas venous (03/07/2024 [...] ORDERABLES Fin al Result Performing Organization Address City/[facility]/ZIP Co de Phone Number [facility] [address] Lab (1st floor, no room number) [address] * Extra Purple Top Tube (03/07/2024 7:02 PM CDT) Hold Specimen [facility] 03/07/2024 8:07 PM CDT RH LABORATORY Blood STRUCTURE OF RIGHT UPPER LIMB / Unknown Venipuncture / Unknown 03/07/2024 7:02 PM CDT 03/07/2024 7:07 PM CDT Sandra Monroy MD LAB - BLOOD ORDERABLES Fin al Result Performing Organization Address [facility] Co de Phone Number [facility] Lab [address] Lab (1st floor, no room number) [address] * Extra Red Top Tube (03/07/2024 7:02 PM CDT) Hold Specimen JI 03/07/2024 8:07 PM CDT RH LABORATORY Blood STRUCTURE OF RIGHT UPPER LIMB / Unknown Venipuncture / Unknown 03/07/2024 7:02 PM CDT 03/07/2024 7:07 PM CDT Sandra Monroy MD LAB - BLOOD ORDERABLES Fin al Result Performing Organization Address City/[facility] Co de Phone Number LABORATORY [facility] [address] Lab (1st floor, no room number) [place] [phone] [place] [address] * Extra Blue Top Tube (03/07/2024 7:02 PM CDT) Hold Specimen JIC 03/07/2024 8:07 PM CDT LABORATORY Blood STRUCTURE OF RIGHT UPPER LIMB / Unknown Venipuncture / Unknown 03/07/2024 7:02 PM CDT 03/07/2024 7:07 PM CDT us Sandra Monroy MD LAB - BLOOD ORDERABLES Hemant al Result Performing Organization Address [facility]/ZIP Co de Phone Number [facility] [address] Lab (1st floor, no room number) [place] [phone] * (ABNORMAL) Ketone Beta-Hydroxybutyrate Quantitative (03/07/2024 7:02 PM CDT) Pathologist [facility] Ketone (Beta-Hydroxybuty rate) Quantitative 0.44(H) <=0.30 mmol/L 03/07/2024 8:09 PM CDT LABORATORY Blood STRUCTURE OF RIGHT UPPER LIMB / Unknown Venipuncture / Unknown 03/07/2024 7:02 PM CDT 03/07/2024 7:07 PM CDT us Sandra Monroy MD LAB - BLOOD ORDERABLES Fin al Result Performing Organization Address City/[facility]/ZIP Co de Phone Number LABORATORY [facility] [address] Lab (1st floor, no room number) [place] [phone], [facility] * (ABNORMAL) CBC with platelets and differential (12/28/2023 6:41 PM CDT) WBC Count 5.9 4.0 - 11.0 10e3/uL 12/28/2023 6:48 PM CDT LABORATORY RBC Count 4.56 4.40 - 5.90 [...] - BLOOD ORDERABLES Final Result RH LABORATORY [facility] [address] Lab (1st floor, no room number) [place] [address] * Adult Type and Screen (12/28/2023 6:41 PM CDT) ABO/RH(D) A POS 12/28/2023 6:28 PM CDT RH BLOOD BANK Antibody Screen Negative Negative 12/28/2023 6:28 PM CDT RH BLOOD BANK SPECIMEN EXPIRATION DATE [id number] 12/28/2023 6:28 PM CDT RH BLOOD BANK Blood STRUCTURE OF RIGHT UPPER LIMB / Unknown Venipuncture / Unknown 12/28/2023 6:41 PM CDT 12/28/2023 6:46 PM CDT Agustin Cesar MD LAB - BLOOD BANK TEST O RDER Final Result RH BLOOD BANK [address] [address] * INR (12/28/2023 6:41 PM CDT) INR 1.01 0.85 - 1.15 12/28/2023 7:00 PM CDT RH LABORATORY Blood STRUCTURE OF RIGHT UPPER LIMB / Unknown Venipuncture / Unknown 12/28/2023 6:41 PM CDT 12/28/2023 6:46 PM CDT Agustin Cesar MD LAB - BLOOD ORDERABLES Final Result Performing Organization Address City/[facility]/ZIP Co de Phone Number LABORATORY [facility] [address] Lab (1st floor, no room number) [place] [address] * Partial thromboplastin time (12/28/2023 6:41 PM CDT) aPTT 28 22 - 38 Seconds 12/28/2023 7:00 PM CDT LABORATORY Blood STRUCTURE OF RIGHT UPPER LIMB / Unknown Venipuncture / Unknown 12/28/2023 6:41 PM CDT 12/28/2023 6:46 PM CDT Agustin Cesar MD LAB - BLOOD ORDERABLES Final Result Performing Organization Address [facility]/ZIP Co de Phone Number LABORATORY [facility] [address] Lab (1st floor, no room number) [place] [address] * (ABNORMAL) Comprehensive metabolic panel [...] 7:09 PM CDT LABORATORY Comment:eGFR calculated usin 2020 CKD-EPI equation. Calcium 8.6(L) 8.8 - 10.4 mg/dL 12/28/2023 7:09 PM CDT LABORATORY Comment:Reference intervals for this test were [...] LAB - BLOOD ORDERABLES Final Result LABORATORY [facility] [address] [facility] Lab (1st floor, no room number) [place] [address] * (ABNORMAL) Hemoglobin A1c (10/15/2023 3:13 PM CDT) Hemoglobin A1C 10.8(H) <5.7 % 10/15/2023 4:57 PM CDT RH LABORATORY Comment: Normal <5.7% Prediabetes 5.7-6.4% ?? Diabetes 6.5% or higher Note: Adopted from ADA consensus guidelines. Blood BLOOD SPECIMEN / Unknown Client Draw / Unknown 10/15/2023 3:13 PM CDT 10/15/2023 4:25 PM CDT Harrison Munson NP LAB - BLOOD ORDERABLES Final Result [facility] [address] Lab (1st floor, no room number) [place] [address], [facility] from Last 3 Months or Most Recently Relevant to Health Maintenance Insurance [place] Advance Directives For more information, please contact: [phone] Documents on File Type Date Recorded Patient Plan Examiner Expl anation Advance Directives and Living Will [...] yissel nt/ legal decision maker Care Teams Sales Representative Education Courses Relationship Specialty Start Date End Date Services, [facility] Physician [address] [place] [phone] PCP - General 05/22/21 Prince Tobar MD [address] [place] [address] [id number] Cardiovascular Disease 03/26/22 Prince Tobar MD [address] [place] [address] [phone] Assigned Heart and Vascular Provider 05/30/22 Matilde Pérez PA-C [address] [place] [address] Physician Back Roll Lathe Operator Physician Back Roll Lathe Operator - Surgical 12/30/23
--- OUTSIDE RECORDS SUMMARY | 2024-03-09 00:45 | XMS_ITS | Encounter Summary ---
Author Organization [facility] Address [address] [facility] [place] [address] Care Team Providers Care Corporate Associate Attorney Name Role Phone Services, [facility] Physician Primary Care Provi sadia Prince Tobar MD Unavailable [phone] Prince Tobar MD Unavailable [phone] Reason for Referral * Consultation (Priority: 1-2 Weeks) - Pending Review Specialty Diagnoses / Procedures Referred By Contjohnny t Referred To Contact Colon and Rectal Surgery Diagnoses Anal fissure External hemorrhoids Reinaldo Beltran PA-C [facility] [address]IMM [address] [place] [phone] Phone: tel: fax: Referral ID Status Reason Start Date Expiration Date V isits Requested Visits Authorized [id number] Pending Review 12/28/2023 12/27/2024 1 1 Question Answer Reason for Referral: Anal Fissure Special Concerns: Other My Clinical Question Is: Anal fissure, taking Apixaban Scheduling Instructions: [employer] will call you to coordinate care as prescribed your provider. If you don? t hear from a [employer] sales representative within 2 business days, please call . Comments Please be aware that coverage of these services is subject to the terms and limitations of your health insurance plan. Call member services at your health plan with any benefit or coverage questions. [employer] will call you to coordinate care as prescribed your provider. If you don? t hear from a [employer] sales representative within 2 business days, please call . Reason for Visit * Reason Comments Rectal Bleeding Encounter Details Date Type Department Care Team (Late st Contact Info) Description 12/28/2023 6:08 PM CDT - 12/29/2023 12:59 AM CDT Emergency [facility] Emergency Dept [address] [place] [address] Agustin Cesar MD [address] [place], [place] [address] Anal fissure; External hemorrhoids Discharge Disposition: Home [...] on file Legal Sex Male 3:35 AM HEAD LIBRARIAN Gender Identity Not on file Sexual Orientation Choose not to disclose 2021 8:14 AM HEAD LIBRARIAN documented as of this encounter Last Filed [...] this encounter Medications at Time of Discharge acetaminophen (TYLENOL) 500 MG tablet Take 500 [...] mouth daily cholecalciferol (VITAMIN D3) 1250 mcg (11849 units) capsule Take 1,250 mcg by mouth [...] 7 days 4 g 12/28/2023 nystatin (MYCOSTATIN) 870807 UNIT/GM external powder Apply topically 2 times [...] as needed for hemorrhoids 30 g 12/28/2023 01/04/20 24 documented as of this encounter ED Notes [...] MG tablet cholecalciferol (VITAMIN D3) 1250 mcg (18359 units) capsule clotrimazole (LOTRIMIN) 1 % external [...] 200 MG 24 hr tablet nystatin (MYCOSTATIN) 469959 UNIT/GM external powder pantoprazole (PROTONIX) 40 MG [...] POS Antibody Screen Negative SPECIMEN EXPIRATION DATE [id number] ABO/RH TYPE AND SCREEN Emergency Department Course [...] 1. Anal fissure K60.2 Adult Colorectal Surgery Used Car Make Ready Mechanic Referral 2. External hemorrhoids K64.4 Adult Colorectal Surgery Used Car Make Ready Mechanic Referral Discharge Medications: New Prescriptions HYDROCORTISONE, PERIANAL, [...] yesterday, he went to a clinic in [place], he is unsure of what was done [...] MG tablet cholecalciferol (VITAMIN D3) 1250 mcg (09933 units) capsule clotrimazole (LOTRIMIN) 1 % external [...] 200 MG 24 hr tablet nystatin (MYCOSTATIN) 540879 UNIT/GM external powder pantoprazole (PROTONIX) 40 MG [...] -- -- -- -- -- 98 % 12/28/231849 -- -- -- -- -- 96 % 12/28/231844 -- -- -- -- -- 96 % 12/28/23 184 -- -- -- -- -- 95 % 12/28/23 183 -- -- -- -- -- 96 % 12/28/23 183 135/68 -- -- 74 -- 97 % 12/28/23 182 -- -- -- -- -- 97 % 12/28/231819 -- -- -- -- -- 96 % 12/28/231814 129/59 -- -- 74 -- 96 % 12/28/23 181 124/65 98.1 ??F (36.7 ??C) Oral 77 [...] POS Antibody Screen Negative SPECIMEN EXPIRATION DATE [id number] ABO/RH TYPE AND SCREEN Imaging No orders [...] Diagnosis [facility] Diagnoses: None MIPS None [facility] Leonid Leahy is a 63 year [...] 1. Anal fissure K60.2 Adult Colorectal Surgery Used Car Make Ready Mechanic Referral 2. External hemorrhoids K64.4 Adult Colorectal Surgery Used Car Make Ready Mechanic Referral Discharge Medications New Prescriptions HYDROCORTISONE, PERIANAL, [...] Pt comes from assisted living facility in [place]. * Tamiko Monzon RN - 12/28/2023 6:08 PM CDT Bed: ED01 Expected date: Expected time: Means of arrival: Comments: [id number] documented in this encounter Plan of Treatment Scheduled Referrals Name Type Priority Associated Diagnoses Orde r Schedule Adult Colorectal Surgery Used Car Make Ready Mechanic Referral Referral Priority: 1-2 Weeks Anal fissure [...] CDT RH BLOOD BANK SPECIMEN EXPIRATION DATE [id number] 12/28/2023 6:28 PM CDT RH BLOOD BANK Blood STRUCTURE OF RIGHT UPPER LIMB / Unknown Venipuncture / Unknown 12/28/2023 6:41 PM CDT 12/28/2023 6:46 PM CDT Agustin Cesar MD LAB - BLOOD BANK TEST O RDER Final Result BLOOD BANK [facility] [place] [address], [facility] * (ABNORMAL) CBC with platelets and differential [...] LAB - BLOOD ORDERABLES Final Result LABORATORY [facility] Acute Care Lab [address] Lab (1st floor, no room number) [place] [address], [facility] * (ABNORMAL) Comprehensive metabolic panel (12/28/2023 6:41 [...] MD LAB - BLOOD ORDERABLES Final Result [facility] Lab [address] Lab (1st floor, no room number) [place] [address] * Partial thromboplastin time (12/28/2023 6:41 PM CDT) aPTT 28 22 - 38 Seconds 12/28/2023 7:00 PM CDT RH LABORATORY Blood STRUCTURE OF RIGHT UPPER LIMB / Unknown Venipuncture / Unknown 12/28/2023 6:41 PM CDT 12/28/2023 6:46 PM CDT Agustin Cesar MD LAB - BLOOD ORDERABLES Final Result [facility] Acute Care Lab [address] Lab (1st floor, no room number) [place] [address] * INR (12/28/2023 6:41 PM CDT) INR 1.01 0.85 - 1.15 12/28/2023 7:00 PM CDT RH LABORATORY Blood STRUCTURE OF RIGHT UPPER LIMB / Unknown Venipuncture / Unknown 12/28/2023 6:41 PM CDT 12/28/2023 6:46 PM CDT us Agustin Cesar MD LAB - BLOOD ORDERABLES Final Result [facility] Acute Care Lab [address] Lab (1st floor, no room number) [place] [address], [facility] documented in this encounter Visit Diagnoses Diagnosis Anal fissure External hemorrhoids External hemorrhoids without mention of complication documented in this encounter Care Teams Corporate Associate Attorney Relationship Specialty Start Date End Date Services, [facility] Physician [address] [place] [id number] PCP - General 05/22/21 Prince Tobar MD [address] [place] [address] Cardiovascular Disease 03/26/22 Prince Tobar MD [address] [place] [address] Assigned Heart and Vascular Provider 05/30/22 documented as of this encounter
--- OUTSIDE RECORDS SUMMARY | 2024-03-09 00:45 | XMS_ITS | Clinical Summary ---
Author Organization [employer] [facility] Address [place], [place] [address] Care Team Providers Care Vice President Of Recruiting Name Role Phone Alan Lopez MD Unavailable [...] type 2 diabetes mellitus (HC),Chronic edema JOBST #[id number] LRG FULL CALF KNEE BLACK 20-30 COMPRESSION [...] mg extended release tablet 24 HourIndications:CAD in [place] artery Take 1 tablet by mouth once [...] call MD 0 04/01/2020 Active Insulin Safety [place], Disp, (NOVOFINE AUTOCOVER) 30 gauge x /3Indications:Cecelia [...] at 10 am and no showed. RN Dictaphone Transcriber, Juanita Yoo, notified and she will attempt [...] No, referral made to Advance Care Plan Historian [employer]amatic [employer]. Patient has identified Specific Treatment Preferences: No Sophia Méndez RN .................... 07/06/2011 2:30 PM] Specific limits to treatment preferences NOT identified: ASSUME FULL TREATMENT. Assessment & Plan (05/25/2012 12:51 PM LARRY OPERATOR): Advance Care Planning: Disease-specific Session Leonid Leahy is a [facility] patient. His PCP is Leandra Limon at [facility]. Advance care planning discussions were completed with Leonid. He identified his sister, Brittany Suggs, as his healthcare agent. Brittany was not present for ACP session. Understanding of Illness and Disease [place]: Leonid identifies his medical condition as what [...] to live well: Daily visit to local [facility] for a pop and to visit [...] and primary care provider. Hard Choices for [employer] booklet was sent to Leonid and his health care agent for review. Leonid requested all information be mailed to his sister and literary writer to place call to sister to explain process. Leonid identified the following concerns during his advance care planning session: needing assistance at home to ensure he is managing his medications and treatments to keep going as is and stabilizing. Is followed by [facility] for needed services. Questions identified for his primary care provider: none Documents addressed during this advance care planning session: Health Care Directive completed and scanned into medical record. Statement of Treatment Preferences for advanced illness completed and scanned into the medical record. Recommendations/Plan: Leonid to review Advance Care Plan with Leonid's healthcare agent. Campus Security Officer will be contacting Leonid's [facility] to explain services rendered, Leonid would benefit from: Home Care and/or Hospice when / if appropriate. [facility] services involved, [facility] supports coordination of medical asistance. Care [...] 2:27 PM Sophia Méndez RN RN [facility] - [facility] [phone] Vitamin D deficiency 01/06/2011 011 Neuropathy 09/25/2010 [...] 176.9 kg (390 lb) 07/14/2022 6:10 PM LARRY OPERATOR Height 167.6 cm (5' 6) 07/14/2022 6:10 PM LARRY OPERATOR Body Mass Index 62.95 07/14/2022 6:10 PM LARRY OPERATOR Plan of Treatment Health Maintenance Due [...] Kay [employer] Devices Implanted Type Area Hull Builder Device Identifier Shelf Expiration Date Model / Serial / Lot Iol [place] +20 Tecnis Zcb00 - [id number] Implanted:Qty: 1 on 07/15/2022 by Tanner Fuentes MD at [facility] Left: Eye [employer] 06/24/2025 ZCB00 20.0 / [id number] / Iol [place] +20 [employer]ecnis Zcb00 - [id number] Implanted:Qty: 1 on 08/19/2022 by Tanner Fuetnes MD at [facility] Right: Eye [employer] 06/24/2025 ZCB00 20.0 / [id number] / Procedures Procedure Name Priority Date/Time Associated Diagnosis Comments LIPID PANEL Routine 03/13/2019 2:31 PM CDT Essential hypertriglyceridemia from Last 3 Months or Most Recently Relevant to Health Maintenance Results * (ABNORMAL) LIPID PANEL (03/13/2019 2:31 PM CDT) [facility] CHOLESTEROL,TOTAL 193 100 - 199 mg/dL 03/13/2019 9:[address] [facility] LABORATORY TRIGLYCERIDES 715(H) <150 mg/dL 03/13/2019 9:[address] [facility] HDL CHOLESTEROL 29(L) >40 mg/dL 9 9:25 PM CDT [facility] TRAL LABORATORY NON-HDL CHOLESTEROL 164(H) <145 mg/dl 03/13/2019 9:25 PM CDT [facility] LAB[facility] CHOL/HDL RATIO 6.66(H) <4.50 03/13/2019 9:25 PM CDT [facility] LDL CHOLESTEROL 9 9:25 PM CDT [facility] LABOR[facility]ORY Comment:Invalid LDL when Tri g >400. PROVIDER ORDERED STATUS RANDOM 03/13/2019 9:[address] [facility] LABOR[facility] Blood BLOOD SPECIMEN / Unknown Venipuncture / Unknown 03/13/2019 2:31 PM CDT 03/13/2019 2:31 PM CDT Suellen Sosa MD CHEMISTRY [facility] [employer] LAB[facility]AT[facility] 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 PCP - General 07/15/22 Alan Lopez MD Internal Medicine Internal Medicine 11/20/10 Nishant Watson MD [address] [place] [address] Endocrinology 08/15/13
== END 2024-03-03 10:03 | disposition home or self-care (01) ==
LOC: AMB 03-09 00:21
PROVIDERS: Visit Provider Family Medicine
DX: E11.65 Type 2 diabetes mellitus with hyperglycemia (principal); R53.83 Other fatigue
CPT/HCPCS: A0425; A0429

== ENCOUNTER 2024-03-03 10:39 | Emergency (ER) | payer MEDICARE, MEDICAID, SELFPAY ==
[2024-03-03] VITALS (7 sets, daily range): BP systolic 118–130; BP diastolic 49–65; PULSE 80–87; RESP 18–20; TEMP 36.6; O2SAT 90–96; BMI 61.3
--- NOTE | 2024-03-03 11:08 | ED_ITS ---
HPI - General Adult General Time Seen by Provider: 11:08 Date Seen: 03/03/24 Chief complaint: Diabetic Related Problem Stated complaint: Diabetic Concerns Hyperglycemia Time Seen by Provider: 03/03/24 10:59 Source: patient, RN notes reviewed and old records reviewed Mode of arrival: ambulatory Limitations: no limitations History of Present Illness HPI narrative: Leonid is a 63-year-old gentleman with a history of chronic kidney disease epilepsy, coronary artery disease who comes to the emergency room today with complaints of headache stomach ache and backache. Leonid states that he has not received insulin in over a week at his long term because they do not have any needles. He has continued to received medications orally. He notes that he felt fine yesterday and this is all new today. He denies a runny nose or fever. He does note that he has a dry throat. He also notes that he has urinary frequency and that is been going on for quite some time. Denies chest pain, nausea vomiting, diarrhea. No recent falls or trauma. Related Data Home Medications ?Medication ?Instructions ?Recorded ?Confirmed amlodipine 10 mg tablet 10 mg PO DAILY 03/07/22 02/20/24 apixaban 5 mg tablet (Eliquis) 5 mg PO BID 03/07/22 02/20/24 aripiprazole 15 mg tablet 7.5 mg PO DAILY 03/07/22 02/20/24 aspirin 81 mg tablet,delayed 81 mg PO DAILY 03/07/22 02/21/24 release carbamazepine 200 mg tablet 200 mg PO BID 03/07/22 02/20/24 chlorthalidone 25 mg tablet 25 mg PO DAILY 03/07/22 02/20/24 ezetimibe 10 mg tablet 10 mg PO DAILY 03/07/22 02/20/24 hydralazine 50 mg tablet 50 mg PO QID 03/07/22 02/20/24 pantoprazole 40 mg tablet,delayed 40 mg PO DAILY 03/07/22 02/20/24 release polyethylene glycol 3350 17 17 g PO DAILY 03/07/22 02/21/24 gram/dose oral powder pregabalin 100 mg capsule 100 mg PO QAM 03/07/22 02/20/24 pregabalin 150 mg capsule 150 mg PO HS 03/07/22 02/20/24 torsemide 20 mg tablet 20 mg PO DAILY 03/07/22 02/20/24 venlafaxine 75 mg capsule,extended 225 mg PO DAILY 03/07/22 02/20/24 release 24 hr acetaminophen 500 mg tablet 500 mg PO Q6H 06/13/22 02/21/24 albuterol sulfate 90 mcg/actuation 1 inh inhalation Q4H PRN 06/13/22 02/21/24 aerosol inhaler bronchospasm diphenhydramine HCl 50 mg capsule 50 mg PO Q6H PRN itching 06/13/22 02/21/24 (Banophen) icosapent ethyl 1 gram capsule 2 g PO BID 06/13/22 02/21/24 (Vascepa) insulin regular hum U-500 conc 500 100 unit subcut TID 06/13/22 02/20/24 unit/mL(3 mL) subcut pen (Humulin R U-500 (Conc) Insulin Kwikpen) ketoconazole 2 % shampoo 1 applic topical Q3D 06/13/22 02/21/24 loperamide 2 mg capsule 2 mg PO Q6H PRN loose stool 06/13/22 02/21/24 nystatin 100,000 unit/gram topical 1 applic topical BID PRN 06/13/22 02/20/24 powder sennosides 8.6 mg tablet (senna) 8.6 mg PO DAILY 06/13/22 02/21/24 clotrimazole 1 % topical cream 1 applic topical BID 07/25/22 02/21/24 ergocalciferol (vitamin D2) 1,250 50,000 unit PO WE@09 07/25/22 02/21/24 mcg (50,000 unit) capsule insulin glargine 100 unit/mL (3 30 unit subcut BID 12/27/23 02/20/24 mL) subcutaneous pen (Basaglar KwikPen U-100 Insulin) isosorbide mononitrate 60 mg 60 mg PO DAILY 12/27/23 02/20/24 tablet,extended release 24 hr metoprolol succinate 200 mg 200 mg PO DAILY 12/27/23 02/20/24 tablet,extended release 24 hr semaglutide 1 mg/dose (4 mg/3 mL) 1 mg subcut .weekly 12/27/23 02/21/24 subcutaneous pen injector (Ozempic) carvedilol 25 mg tablet 25 mg PO DAILY 02/20/24 02/20/24 potassium chloride 20 mEq 40 meq PO BID 02/20/24 02/21/24 tablet,extended release(part/cryst) rosuvastatin 40 mg tablet 40 mg PO HS 02/20/24 02/20/24 Previous Rx's ?Medication ?Instructions ?Recorded hydrocortisone 2.5 % topical cream 1 applic topical BID PRN #30 grams 09/14/22 ammonium lactate 12 % lotion 1 applic topical BID #225 grams 04/01/23 cyclobenzaprine 10 mg tablet 10 mg PO HS PRN muscle spasm #20 12/27/23 tabs doxycycline hyclate 100 mg capsule 100 mg PO BID #10 caps 02/21/24 Allergies Allergy/AdvReac Type Severity Reaction Status Date / Time lisinopril Allergy Mild Cough Verified 02/19/24 12:49 metformin AdvReac Verified 02/19/24 12:49 Review of Systems Status of ROS: Reports: 10 or more systems reviewed and unremarkable except as noted in History and below [facility] Medical History Anemia in chronic kidney disease (CKD) ?N18.9 - Chronic kidney disease, unspecified (ICD-10) ?D63.1 - Anemia in chronic kidney disease (ICD-10) Chronic kidney disease (CKD), stage IV (severe) ?N18.4 - Chronic kidney disease, stage 4 (severe) (ICD-10) DISH (diffuse idiopathic skeletal hyperostosis) ?M48.10 - Ankylosing hyperostosis [[place]], site unspecified (ICD-10) Edema ?R60.9 - Edema, unspecified (ICD-10) Neuropathy ?G62.9 - Polyneuropathy, unspecified (ICD-10) Learning disability ?F81.9 - Developmental disorder of scholastic skills, unspecified (ICD-10) Insomnia ?G47.00 - Insomnia, unspecified (ICD-10) Metabolic syndrome ?E88.810 - Metabolic syndrome (ICD-10) Sensorineural hearing loss (SNHL) of both ears ?H90.3 - Sensorineural hearing loss, bilateral (ICD-10) Tinnitus ?H93.19 - Tinnitus, unspecified ear (ICD-10) Hypercholesterolemia ?E78.00 - Pure hypercholesterolemia, unspecified (ICD-10) Insulin dependent diabetes mellitus Recurrent deep vein thrombosis (DVT) ?I82.409 - Acute embolism and thrombosis of unspecified deep veins of unspecified lower extremity (ICD-10) Hypertension ?I10 - Essential (primary) hypertension (ICD-10) Coronary artery disease ?I25.10 - Atherosclerotic heart disease of [place] coronary artery without a ngina pectoris (ICD-10) Hypertriglyceridemia ?E78.1 - Pure hyperglyceridemia (ICD-10) Epilepsy ?G40.909 - Epilepsy, unspecified, not intractable, without status epilepticus (ICD-10) TASHI on CPAP ?G47.33 - Obstructive sleep apnea (adult) (pediatric) (ICD-10) ?Z99.89 - Dependence on other enabling machines and devices (ICD-10) Tachypnea ?R06.82 - Tachypnea, not elsewhere classified (ICD-10) Fever ?R50.9 - Fever, unspecified (ICD-10) CKD (chronic kidney disease) ?N18.9 - Chronic kidney disease, unspecified (ICD-10) Gout ?M10.9 - Gout, unspecified (ICD-10) Major depressive disorder ?F32.9 - Major depressive disorder, single episode, unspecified (ICD-10) Type 2 diabetes mellitus ?E11.9 - Type 2 diabetes mellitus without complications (ICD-10) Obesity ?E66.9 - Obesity, unspecified (ICD-10) Surgical History History of cholecystectomy ?Z90.49 - Acquired absence of other specified parts of digestive tract (ICD- 10) Social History Narrative: Lives in a long term in [place], [place]. Sisters Brittany Suggs ([phone]) and Blanka Mcduffie ([phone]) listed as contacts and medical decision makers. Paperwork from long term indicates Full Code status. What is your current living situation?: I presently have a place to live Problems where you live: no known problems Problems where you live details: none In the past 12 months, utilities in danger of being shut off: no In past 12 months, lack of transportation kept you from medical appts, meetings, work, or getting things needed for daily living: no In the past 12 mos, have been you worried that your food would run out before you had money to buy more?: never true In the past 12 mos, the food you bought just didn't last and you didn't have money to buy more?: never true Highest level of school completed/degree received: 12th grade, no diploma Smoking Status: Never smoker Do you use any of these nicotine containing products: None Second hand tobacco smoke exposure: No How often do you have a drink containing alcohol: never How often do you have six or more drinks on one occasion: Never AUDIT-C Alcohol total score: 0 Non-prescribed substance use: denies use Caffeine: No How often does anyone, including family, friends and others, physically hurt you : never How often does anyone, including family, friends and others, insult or talk down to you: never How often does anyone, including family, friends and others, threaten you with harm: never How often does anyone, including family, friends and others, scream or curse at you: never service: No Exam Narrative: Exam Narrative: Leonid is alert and oriented. He is somewhat short with me but I have met Leonid in the past and this is baseline behavior in the emergency room. He is co operative. He is asking for water and I do state that we will bring him water after my exam and he is okay with that. EOM is full. He head is atraumatic normocephalic. Moist mucous membranes. Fa ce symmetrical. Neck is supple. No lymphadenopathy. Heart with a regular rate and rhythm. Lungs are with distant breath sounds but they are clear bilaterally. Palpation down the spine yields no tenderness. Soreness noted in the lumbar and sacral area but no significant tenderness. Lower extremities with compression stockings in place. 1+ edema. Able to move lower extremities without dif ficulty. Sensation is intact. Abdomen is obese soft nontender. Const: Vital Signs, click to edit/add: Vital Signs - 24 hr 03/03/24 10:49 03/03/24 10:54 03/03/24 11:00 Temperature 98 F Pulse Rate 86 86 Pulse Rate [Right Pulse Oximeter] 86 Respiratory Rate 20 Blood Pressure Blood Pressure [Le ft Forearm] 130/65 Pulse Oximetry 96 90 Oxygen Delivery Me thod Room Air 03/03/24 11:42 03/03/24 11:45 03/03/24 13:43 Temperature Pulse Rate 86 87 Pulse Rate [Right Pulse Oximeter] Respiratory Rate Blood Pressure 119/49 L Blood Pressure [Le ft Forearm] Pulse Oximetry 92 91 Oxygen Delivery Me thod 03/03/24 15:54 Temperature Pulse Rate Pulse Rate [Right Pulse Oximeter] 80 Respiratory Rate 18 Blood Pressure Blood Pressure [Le ft Forearm] 118/50 L Pulse Oximetry 92 Oxygen Delivery Me thod Room Air Documenting provider has reviewed patient's vital signs: yes Course Course ED Course: Leonid is presenting with hyperglycemia according to his long term but he states that he has not received insulin and a week because they have no needles. I have also have concerns as he has a headache back ache and stomach ache as well as a dry throat and therefore will also need to swab for COVID. Given his inability to articulate all of his needs as I would will also do labs to include CBC, comprehensive, troponin, lactate, CRP as well as urinalysis. Reevaluation(s) Reevaluation #1: Blood sugar has returned at 548. Lactate at 2.3. Potassium were all within normal limits as is bicarb. Patient is given 10 units of IV regular insulin. Will do q.1 hour checks. At this time he is not hungry but is requesting diet Coke which we will give him. Nursing reports behavioral issues and they are working with that. Nursing also reports attempted calling Leonid's long term and there is no answer at this time. Reevaluation #2: Repeat glucose is 509. Will start IV insulin drip at this time. Discussed with patient ultrasound to check for urinary retention. Unfortunately due to body habitus this was quite challenging. Then discuss with patient possibility of a catheter to ensure that he is not retaining urine. He adamantly declines at this time. He does have a guardian but I do not feel that we should go against his wishes. Still no answer from the long term. Nursing staff was finally able to speak to nurse from the long term. Today she has been able to obtain the insulin pens. Indeed, it was accurate that Leonid has not been getting insulin all week. Nursing staff will report this as a vulnerable adult. This is very concerning that Leonid has gone the whole week without insulin. He wants to go back home. They are reassuring us that they have medication for this evening. Blood sugar continues to decrease. No evidence of pneumonia, urinary tract infection COVID or influenza. Troponin is negative. Reevaluation #3: Blood sugar has now declined to 381. A recheck of electrolytes shows stable potassium and increase in sodium from 128-130. Leonid is wanting to go home and I feel it is safe for him to do so as his sugars have continued to trend down. Vital Signs Vital signs: Initial Vital Signs Temperature 98 F 03/03/24 10:49 Temperature Source Temporal Artery Scan 03/03/24 10:49 Pulse Rate 86 03/03/24 10:49 Pulse Rhythm Regular 03/03/24 10:49 Pulse Strength 3+ Normal 03/03/24 10:49 Respiratory Rate 20 03/03/24 10:49 Blood Pressure 130/65 03/03/24 10:49 Blood Pressure Mean 86 03/03/24 10:49 Blood Pressure Position Left Lateral 03/03/24 10:49 Pulse Oximetry 96 03/03/24 10:49 Oxygen Delivery Method Room Air 03/03/24 10:49 Vital Signs Temperature 98 F 03/03/24 10:49 Pulse Rate 86 03/03/24 10:49 Respiratory Rate 20 03/03/24 10:49 Blood Pressure 130/65 03/03/24 10:49 Pulse Oximetry 96 03/03/24 10:49 Oxygen Delivery Method Room Air 03/03/24 10:49 Temperature 98 F 03/03/24 10:49 Pulse Rate 80 03/03/24 15:54 Respiratory Rate 18 03/03/24 15:54 Blood Pressure 118/50 L 03/03/24 15:54 Pulse Oximetry 92 03/03/24 15:54 Oxygen Delivery Method Room Air 03/03/24 15:54 Medications Administered Medications: Discontinued Medications Generic Name Dose Route Start Last Admin Trade Name Freq PRN Reason Stop Dose Admin Sodium Chloride 1,000 mls @ 1,000 mls/hr 03/03/24 12:16 03/03/24 14:17 0.9 % Sodium Chloride 1000 Ml IV 03/03/24 13:15 Infused .Q1H SOILA Infusion Insulin Human (Reg)/Sodium Chloride 100 unit in 100 mls @ 5 mls/hr 03/03/24 14:15 03/03/24 19:06 Insulin Inf 100 Unit/100 Ml IVPB 0 unit/hr .Q20H SOILA 0 mls/hr Infusion Protocol 5 UNIT/HR Sodium Chloride 1,000 mls @ 1,000 mls/hr 03/03/24 16:01 03/03/24 19:14 0.9 % Sodium Chloride 1000 Ml IV 03/03/24 17:00 Infused .Q1H SOILA Infusion Insulin Human Regular 10 unit 03/03/24 12:14 03/03/24 12:42 Insulin Regular, Human 100 Unit/Ml Vial IVP 03/03/24 12:15 10 unit ONCE ONE Administration Medical Decision Making MDM Narrative Medical decision making narrative: 1. Hyperglycemia -improved. Blood sugar has gone from 545-381 and will likely continue to trend downward. No evidence of infection found today. Troponin is negative and urinalysis without UTI although culture is pending. Will have him resume his normal dosing of insulin at his long term. A message was left with his guardian in regards to the concerns surrounding lack of insulin over the past week. 2. Abdominal and back pain -resolved. Feeling much better since he has received fluids and his blood sugar is coming down. After initially exhibiting some Behavioral challenges I 2nd nurse with him was a positive experience and he had been cooperative without any complaints during the latter part of his stay. 3. Urinary frequency-patient declined a catheter to determine if he has urinary retention. We were unsuccessful at 80 bladder scan/ultrasound secondary to body habitus. Will need to follow-up if he has continued symptoms. 3. Disposition -discharge back to the long term. Will transfer via BLS ambulance as he has no other means to return. Would not feel safe using a taxi with this gentleman. I would ask that he seek medical attention or return if blood sugar starts rising, he is experiencing symptoms of fever chills or pain. Medical Records Medical records reviewed: Yes I reviewed the patient's medical records Lab Data Lab results reviewed: Yes I reviewed the patient's lab results Labs: Lab Results 03/03/24 03/03/24 03/03/24 Range/Units 11:10 11:33 11:42 WBC 11.69 H (4.50-11.00) K/uL RBC 5.00 (4.30-5.90) m/uL Hgb 14.2 (13.5-17.5) gm/dL Hct 41.2 (37.0-53.0) % MCV 82 (80-100) fL MCH 28 (26-34) pg MCHC 35 (32-36) gm/dL RDW Coeff of Kaylen 13.4 (11.5-15.5) % Plt Count 173 (140-440) K/uL Neut % (Auto) 88.6 H (42.0-72.0) % Lymph % (Auto) 7.7 L (20-44) % [place] % (Auto) 2.6 (0.0-11.0) % Eos % (Auto) 0.7 (0.0-7.0) % Baso % (Auto) 0.3 (0.0-3.0) % Neut # (Auto) 10.40 H (1.7-7.0) K/uL Lymph # (Auto) 0.90 (0.90-2.90) K/uL Mill[place] # (Auto) 0.30 (0.00-0.90) K/UL Eos # (Auto) 0.10 (0.00-0.50) K/uL Baso # (Auto) 0.00 (0.00-0.30) K/uL Abs Immat Gran (auto) 0.00 (0.00-0.30) K/uL Imm/Tot Granulo (auto) 0.1 % Sodium 128 L (135-149) mmol/L Potassium 4.8 (3.6-5.1) mmol/L Chloride 89 L (96-114) mmol/L Carbon Dioxide 26 (20-32) mmol/L Anion Gap 13 (7-15) mEq/L BUN 32 H (7-30) mg/dL Creatinine 1.3 (0.5-1.5) mg/dL Estimated Creat Clear 51.80 Estimated GFR 61 ml/min Glucose 548 H* (60-115) mg/dL Lactate 2.3 H (0.5-1.9) mmol/L Calcium 9.2 (8.4-10.6) mg/dL Total Bilirubin 1.1 (0.1-1.5) mg/dL AST 39 H (12-35) U/L ALT 37 (4-50) U/L Alkaline Phosphatase 151 H (40-150) U/L C-Reactive Protein 2.0 H (0.5-1.0) mg/dL Total Protein 8.0 (6.0-8.3) g/dL Albumin 4.6 (3.3-5.0) g/dL Urine Color (Yellow) Urine Appearance (Clear) Urine pH (5.0-8.5) Ur Specific [place] (1.000-1.030) Urine Protein (Negative) Urine Glucose (UA) (Negative) Urine Ketones (Negative) Urine Blood (Negative) Urine Nitrite (Negative) Urine Bilirubin (Negative) Urine Urobilinogen (0.2-1.0) Ur Leukocyte Esterase (Negative) SARS-CoV-2 (PCR) Negative SARS-CoV-2 (Negative) Influenza Type A (PCR) Negative PCR FLU A (Negative) Influenza Type B (PCR) Negative PCR FLU B (Negative) RSV (PCR) Negative PCR RSV (Negative) Group A Strep DNA NOT DETECTED (Not Detectd) POC Troponin I 0.01 (0.01-0.04) ng/ml 03/03/24 03/03/24 Range/Units 18:18 19:02 WBC (4.50-11.00) K/uL RBC (4.30-5.90) m/uL Hgb (13.5-17.5) gm/dL Hct (37.0-53.0) % MCV (80-100) fL MCH (26-34) pg MCHC (32-36) gm/dL RDW Coeff of Kaylen (11.5-15.5) % Plt Count (140-440) K/uL Neut % (Auto) (42.0-72.0) % Lymph % (Auto) (20-44) % [place] % (Auto) (0.0-11.0) % Eos % (Auto) (0.0-7.0) % Baso % (Auto) (0.0-3.0) % Neut # (Auto) (1.7-7.0) K/uL Lymph # (Auto) (0.90-2.90) K/uL [place] # (Auto) (0.00-0.90) K/UL Eos # (Auto) (0.00-0.50) K/uL Baso # (Auto) (0.00-0.30) K/uL Abs Immat Gran (auto) (0.00-0.30) K/uL Imm/Tot Granulo (auto) % Sodium 130 L (135-149) mmol/L Potassium 3.8 (3.6-5.1) mmol/L Chloride 91 L (96-114) mmol/L Carbon Dioxide 29 (20-32) mmol/L Anion Gap 10 (7-15) mEq/L BUN 32 H (7-30) mg/dL Creatinine 1.4 (0.5-1.5) mg/dL Estimated Creat Clear 48.10 Estimated GFR 56 ml/min Glucose 395 H* (60-115) mg/dL Lactate (0.5-1.9) mmol/L Calcium 8.5 (8.4-10.6) mg/dL Total Bilirubin (0.1-1.5) mg/dL AST (12-35) U/L ALT (4-50) U/L Alkaline Phosphatase (40-150) U/L C-Reactive Protein (0.5-1.0) mg/dL Total Protein (6.0-8.3) g/dL Albumin (3.3-5.0) g/dL Urine Color Yellow (Yellow) Urine Appearance Clear (Clear) Urine pH 5.0 (5.0-8.5) Ur Specific [place] 1.010 (1.000-1.030) Urine Protein Negative (Negative) Urine Glucose (UA) 3+ A (Negative) Urine Ketones Trace A (Negative) Urine Blood Negative (Negative) Urine Nitrite Negative (Negative) Urine Bilirubin 1+ A (Negative) Urine Urobilinogen 0.2 (0.2-1.0) Ur Leukocyte Esterase Negative (Negative) SARS-CoV-2 (PCR) (Negative) Influenza Type A (PCR) (Negative) Influenza Type B (PCR) (Negative) RSV (PCR) (Negative) Group A Strep DNA (Not Detectd) POC Troponin I (0.01-0.04) ng/ml Imaging Data Chest x-ray: Attestation: I have reviewed the pertinent imaging results. Radiologist's impression: No substantial pleural effusion. Mild diffuse prominence of the pulmonary interstitial markings. No definite focal pulmonary consolidation. Similar cardiomediastinal contours. No acute osseous findings. IMPRESSION: Mild diffuse prominence of the pulmonary interstitial markings. Initial considerations are edema, infection, and artifact. ECG Data Attestation: I personally reviewed and interpreted this ECG as follows: Interpretation: EKG by my read shows sinus rhythm at a rate of 87. Prolonged AL interval at 264 milliseconds. I do not note any acute ST or T-wave changes. Discharge Plan Discharge Clinical Impression: Hyperglycemia Patient Disposition: Xfer Other Condition: Improved Additional Instructions: Resume normal dosing of insulin tonight. We have been told by your staff that they now have the appropriate medication this evening. Return to the emergency room for worsening symptoms and as needed. Prescriptions: No Action amlodipine 10 mg tablet 10 mg PO DAILY aripiprazole 15 mg tablet 7.5 mg PO DAILY Eliquis 5 mg tablet 5 mg PO BID aspirin 81 mg tablet,delayed release (DR/EC) 81 mg PO DAILY venlafaxine 75 mg capsule,extended release 24hr 225 mg PO DAILY torsemide 20 mg tablet 20 mg PO DAILY chlorthalidone 25 mg tablet 25 mg PO DAILY carbamazepine 200 mg tablet 200 mg PO BID pantoprazole 40 mg tablet,delayed release (DR/EC) 40 mg PO DAILY hydralazine 50 mg tablet 50 mg PO QID Patient Comments: 08,12,16,20 ezetimibe 10 mg tablet 10 mg PO DAILY pregabalin 100 mg capsule 100 mg PO QAM pregabalin 150 mg capsule 150 mg PO HS polyethylene glycol 3350 17 gram/dose powder 17 g PO DAILY Rx Instructions: AND TWICE DAILY NEEDED sennosides [senna] 8.6 mg tablet 8.6 mg PO DAILY ketoconazole 2 % shampoo 1 applic TOPICAL Q3D diphenhydramine HCl [Banophen] 50 mg capsule 50 mg PO Q6H PRN (Reason: itching) loperamide 2 mg capsule 2 mg PO Q6H PRN (Reason: loose stool) acetaminophen 500 mg tablet 500 mg PO Q6H nystatin 100,000 unit/gram powder 1 applic TOPICAL BID PRN albuterol sulfate 90 mcg/actuation HFA aerosol inhaler 1 inh INHALATION Q4H PRN (Reason: bronchospasm) icosapent ethyl [Vascepa] 1 gram capsule 2 g PO BID Humulin R U-500 (Conc) Kwikpen 500 unit/mL (3 mL) insulin pen 100 unit SUBCUT TID clotrimazole 1 % cream 1 applic topical BID Rx Instructions: GROIN,PERIAREA AND ABDOMIN ergocalciferol (vitamin D2) 1,250 mcg (50,000 unit) capsule 50,000 unit PO WE@09 hydrocortisone 2.5 % cream 1 applic topical BID PRNQty: 30 1RF ammonium lactate 12 % lotion 1 applic topical BID Qty: 225 0RF metoprolol succinate 200 mg tablet extended release 24 hr 200 mg PO DAILY isosorbide mononitrate 60 mg tablet extended release 24 hr 60 mg PO DAILY Ozempic 1 mg/dose (4 mg/3 mL) pen injector 1 mg subcut .weekly insulin glargine [Basaglar KwikPen U-100 Insulin] 100 unit/mL (3 mL) insulin pen 30 unit subcut BID cyclobenzaprine 10 mg tablet 10 mg PO HS PRN (Reason: muscle spasm) Qty: 20 0RF Rx Instructions: Muscle relaxant to use at bedtime if needed for back pain potassium chloride 20 mEq tablet,ER particles/crystals 40 meq PO BID rosuvastatin 40 mg tablet 40 mg PO HS carvedilol 25 mg Tablet 25 mg PO DAILY doxycycline hyclate 100 mg capsule 100 mg PO BID Qty: 10 0RF Stand Alone Forms: [facility] Info Instructions
--- NOTE | 2024-03-03 11:10 | CRLHL7_ITS ---
For Patients: As a result of the Century Cures Act, medical imaging exams and procedure reports are released immediately into your electronic medical record. You may view this report before your referring provider. If you have questions, please contact your health care provider. INDICATION: Abdominal pain COMPARISON: 02/19/2024 chest radiograph TECHNIQUE: Single frontal radiographic view(s) of the chest. FINDINGS: No substantial pleural effusion. Mild diffuse prominence of the pulmonary interstitial markings. No definite focal pulmonary consolidation. Similar cardiomediastinal contours. No acute osseous findings. IMPRESSION: Mild diffuse prominence of the pulmonary interstitial markings. Initial considerations are edema, infection, and artifact. Dictated by Ghanshyam Hammonds MD @ 03/03/2024 11:56:25 AM (Electronically Signed)
[2024-03-03 11:41] LABS: Lactate* 2.3 mmol/L (0.5-1.9)
[2024-03-03 11:42] LABS: Basophils Percent Auto 0.3 % (0.0-3.0); Eosinophils Percent Auto 0.7 % (0.0-7.0); Hematocrit 41.2 % (37.0-53.0); Hemoglobin* 14.2 gm/dL (13.5-17.5); Immature Granulocytes Pct Auto 0.1 %; Lymphocytes Percent Auto 7.7 % (20-44); Mean Corpuscular HGB Conc 35 gm/dL (32-36); Mean Corpuscular Hemoglobin 28 pg (26-34); Mean Corpuscular Volume 82 fL (80-100); Monocytes Percent Auto 2.6 % (0.0-11.0); Neutrophils Percent Auto 88.6 % (42.0-72.0); Platelet Count* 173 K/uL (140-440); RDW Coefficient of Variation % 13.4 % (11.5-15.5); White Blood Count* 11.69 K/uL (4.50-11.00)
[2024-03-03 11:43] LABS: Slide Review Reflex No
[2024-03-03 11:51] LABS: Troponin, Point-of-Care* 0.01 ng/ml (0.01-0.04)
[2024-03-03 12:00] LABS: Chloride* 89 mmol/L (96-114)
[2024-03-03 12:01] LABS: Albumin* 4.6 g/dL (3.3-5.0); Potassium* 4.8 mmol/L (3.6-5.1); Sodium* 128 mmol/L (135-149)
[2024-03-03 12:03] LABS: Creatinine* 1.3 mg/dL (0.5-1.5); Estimated Glomerular Filt Rate 61 ml/min
[2024-03-03 12:04] LABS: Alanine Aminotransferase* 37 U/L (4-50); Alkaline Phosphatase* 151 U/L (40-150); Anion Gap 13 mEq/L (7-15); Aspartate Amino Transferase* 39 U/L (12-35); Bilirubin Total* 1.1 mg/dL (0.1-1.5); Blood Urea Nitrogen* 32 mg/dL (7-30); Calcium* 9.2 mg/dL (8.4-10.6); Carbon Dioxide* 26 mmol/L (20-32)
[2024-03-03 12:12] LABS: Strep A DNA Probe* NOT DETECTED (Not Detectd)
[2024-03-03 12:13] LABS: Glucose* 548 mg/dL (60-115)
[2024-03-03 12:24] LABS: PCR FLU A Negative PCR FLU A (Negative); PCR FLU B Negative PCR FLU B (Negative); PCR RSV Negative PCR RSV (Negative); SARS PCR* Negative SARS-CoV-2 (Negative)
[2024-03-03] MEDS: INSULIN REGULAR, HUMAN 100 UNIT/ML VIAL 10 UNIT IVP (12:42)
[2024-03-03] MEDS: 0.9 % SODIUM CHLORIDE 1000 ml 1,000 ML IV ×2 (12:42→16:03)
--- NOTE | 2024-03-03 14:00 | ED.NURSE ---
Patient given sandwich and diet coke.
--- OUTSIDE RECORDS SUMMARY | 2024-03-03 14:25 | XMS_ITS | CCD ---
Author Name Cecilio Durham ie Address [address] [place] [address] Phone Organization [facility] Phone Care Team Providers Care Crop Insurance Claims Adjuster Name Role Phone Arpit AIX ARCHITECT-CHarrison Primary Care Provider Leona vailable Arpit ARLENParker Harrison Chronic Care Management U navailable Summary Purpose DataExchange Insurance Providers Payer name Policy type / Coverage type Covered green party ID Effective Begin Date Effective End Date [place] Part B [id number] Unknown Unknown Medicaid [place] Medicare Part [place] [id number] Unknown Unknown Family history Sister Brittany Suggs Diagnosis Age At Onset No Family Disease Entered N/A Runs in the family Diagnosis Age At Onset No Known Diseases N/A Sister Blanka Mcduffie Diagnosis Age At Onset No Family Disease Entered N/A Social History Social History Element Codes Description Effec tive Dates Tobacco history SNOMED CT: 426008045 Never smoker 01/16 Sexually Active? Unknown No [...] Unknown Jail 09/03/[address]: 057595981 No Alcohol Consum ption 09/02/2020 Allergies, Adverse Reactions, Alerts Substance Reaction Codes Entered Date Inactivated Date Status * NO KNOWN FOOD ALLERGIES Unknown 07/13/2023 No Inactive Date Active LISINOPRIL RxNorm: 92622 02/12/2020 No Inactive Da te Active Metformin [...] E78. 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 Other alf (current) dr ug therapy ICD-10: Z79.899 ICD-9: [...] 09/07/2023 Resolved Coronary artery disease invo lving [place] coronary artery of [place] heart, angina presence unspecified ICD-10: I25.10 ICD-9: [...] (Concentrated) Insulin 500 unit/mL subcutaneous soln RxNorm: 239108 Inject 100 Unit(s) Subcutaneous TID 02/17/20 24 025 Active Basaglar KwikPen U-100 Insulin 100 unit/mL (3 mL) subcutaneous RxNorm: 8268170 Inject 30 Unit(s) Subcutaneous BID 02/10/20 24 024 Active Please dispense one month supply. Humulin R U-500 (Concentrated) Insulin 500 unit/mL subcutaneous soln RxNorm: 794709 Inject 100 Unit(s) Subcutaneous TID 02/10/20 24 024 Inactive pregabalin 100 mg capsule RxNorm: 071618 Take 1 Capsule(s) Oral QAM every morning 02/07/20 24 024 Active isosorbide mononitrate ER 60 mg tablet,extended release 24 hr RxNorm: 492239 Take 1 Tablet(s) Oral QD 02/01/20 24 025 Active aripiprazole 15 mg tablet RxNorm: 625479 Take 1/2 Tablet(s) Oral QD 02/01/20 24 025 Active torsemide 20 mg tablet RxNorm: 983991 1 TAB ORALLY DAILY (DX: EDEMA) 01/27/20 No Stop Date Active potassium chloride ER 20 mEq tablet,extended release(part/cryst) RxNorm: 3210393 2 TABS (40MEQ) ORALLY TWICE DAILY (DX: HYPOKALEMIA) 01/27/20 No Stop Date Active cephalexin 500 mg capsule RxNorm: 246041 Take 1 Capsule(s) Oral QID 12/17/19 24 024 Inactive cephalexin 500 mg capsule RxNorm: 357602 Take 1 Capsule(s) Oral QID 12/17/19 24 024 Inactive acetaminophen 500 mg tablet RxNorm: 238730 (MAX APAP:4GM/24HR) Take 1 Tablet(s) Oral TID as needed for pain 12/10/19 24 024 Active torsemide 20 mg tablet RxNorm: 881490 Take 1 Tablet(s) Oral QD 10/26/19 24 024 Inactive potassium chloride ER 20 mEq tablet,extended release RxNorm: 856078 Take 2 Tablet(s) Oral BID 10/26/19 24 025 Active torsemide 20 mg tablet RxNorm: 660828 Take 1 Tablet(s) Oral QD 10/26/19 24 024 Inactive potassium chloride ER 20 mEq tablet,extended release RxNorm: 690847 Take 2 Tablet(s) Oral BID 10/26/19 24 024 Inactive Artificial Tears (PF) 0.1 %-0.3 % drops in a dropperette RxNorm: 806779 Apply 1-2 Drop(s) Both eyes BID as needed 09/28/19 24 025 Active erythromycin 5 mg/gram (0.5 %) eye ointment RxNorm: 811630 Apply 1 Application Both eyes QHS every night at bedtime Instill ~1 cm ribbon into affected eye 09/28/19 Inactive Artificial Tears (PF) 0.1 %-0.3 % drops in a dropperette RxNorm: 578108 Apply 1-2 Drop(s) Both eyes BID as needed 09/28/19 Inactive erythromycin 5 mg/gram (0.5 %) eye ointment RxNorm: 911790 Apply 1 Application Both eyes QHS every night at bedtime Instill ~1 cm ribbon into affected eye 09/28/19 Inactive acetaminophen 500 mg tablet RxNorm: 731195 (MAX APAP:4GM/24HR) Take 1 Tablet(s) Oral TID as needed for pain 09/24/19 Inactive carvedilol 25 mg tablet RxNorm: 580266 Take 1 Tablet(s) Oral QD 09/08/19 24 No Stop Date Active pregabalin 100 mg capsule RxNorm: 674932 Take 1 Capsule(s) Oral QAM every morning 09/07/19 24 Inactive rosuvastatin 40 mg tablet RxNorm: 284264 Take 1 Tablet(s) Oral QPM every evening 07/13/19 24 No Stop Date Active ezetimibe 10 mg tablet RxNorm: 253877 Take 1 Tablet(s) Oral QD 07/13/19 24 No Stop Date Active bisacodyl 10 mg rectal suppository RxNorm: 394366 Insert 1 Suppository Rectal QD as needed 07/13/19 24 No Stop Date Active polyethylene glycol 3350 17 gram/dose oral powder RxNorm: 441417 Take 17 Gram(s) Oral BID as needed mix in 4-8ox water 07/13/19 24 No Stop Date Active ketoconazole 2 % shampoo RxNorm: 613857 Apply 1 Application Topical UD as directed 07/13/19 24 No Stop Date Active Ozempic 1 mg/dose (4 mg/3 mL) subcutaneous pen injector RxNorm: 2183853 Inject 1 Milligram(s) Subcutaneous QW once a week 07/13/19 24 No Stop Date Active Guaifenesin AC 10 mg-100 mg/5 mL oral liquid RxNorm: 296923 Take 10 Milliliter(s) Oral Q4H every four hours as needed 07/13/19 24 No Stop Date Active ammonium lactate 12 % topical cream RxNorm: 833378 Apply 1 Application Topical BID 07/13/19 24 No Stop Date Active hydrocortisone 2.5 % topical cream RxNorm: 062575 Apply 1 Application Topical BID as needed 07/13/19 24 No Stop Date Active rosuvastatin 20 mg sprinkle capsule RxNorm: 2874246 Take 1 Capsule(s) Oral QD 07/13/19 24 No Stop Date Active Vascepa 1 gram capsule RxNorm: 7386852 Take 2 Capsule(s) Oral BID 07/13/19 24 No Stop Date Active venlafaxine ER 75 mg capsule,extended release 24 hr RxNorm: 574854 Take 3 Capsule(s) Oral QD 07/13/19 24 No Stop Date Active aripiprazole 15 mg tablet RxNorm: 814904 Take 1/2 Tablet(s) Oral QD 07/13/19 24 024 Inactive isosorbide mononitrate ER 60 mg tablet,extended release 24 hr RxNorm: 618362 Take 1 Tablet(s) Oral QD 07/13/19 24 024 Inactive Basaglar KwikPen U-100 Insulin 100 unit/mL (3 mL) subcutaneous RxNorm: 2150034 Inject 30U SubQ twice daily 07/07/19 24 024 Inactive Please dispense one month supply. Basaglar KwikPen U-100 Insulin 100 unit/mL (3 mL) subcutaneous RxNorm: 1265462 Inject 30U SubQ twice daily 07/07/19 24 024 Inactive Please dispense one month supply. pregabalin 150 mg capsule RxNorm: 257097 Take 1 Capsule(s) Oral QHS every night at bedtime 07/05/19 24 024 Inactive pregabalin 150 mg capsule RxNorm: 382409 Take 1 Capsule(s) Oral QHS every night at bedtime 07/05/19 24 024 Inactive polyethylene glycol 3350 17 gram/dose oral powder RxNorm: 330985 Take 1 Packet Oral QD as needed (1 packet = 17g) mix with 4-8oz of liquid 06/15/19 24 024 Inactive bisacodyl 10 mg rectal suppository RxNorm: 241305 Insert one suppository per rectum once daily as needed for constipation 06/15/19 24 024 Inactive bisacodyl 10 mg rectal suppository RxNorm: 281610 Insert one suppository per rectum once daily as needed for constipation 06/15/19 24 024 Inactive pregabalin 100 mg capsule RxNorm: 237946 Take 1 Capsule(s) Oral QAM every morning 04/27/20 024 Inactive Levemir FlexPen 100 unit/mL (3 mL) solution subcutaneous insulin pen RxNorm: 290024 Inject 30 Unit(s) Subcutaneous BID 04/27/20 024 Inactive rosuvastatin 40 mg tablet RxNorm: 892307 Take 1 Tablet(s) Oral QPM every evening 04/16/20 024 Inactive D/C rosuvastatin 20mg venlafaxine ER 75 mg capsule,extended release 24 hr RxNorm: 410221 Take 3 Capsule(s) Oral QD 04/14/20 023 Inactive pregabalin 100 mg capsule RxNorm: 468308 Take 1 Capsule(s) Oral QAM every morning [...] strip clotrimazole 1 % topical cream RxNorm: 332970 Take apply topically to abdominal folds twice daily for 14 days 03/12/20 024 Inactive Ozempic 1 mg/dose (4 mg/3 mL) subcutaneous pen injector RxNorm: 7758192 Inject 1 Milligram(s) Subcutaneous QW once a week 03/11/20 23 023 Inactive rosuvastatin 20 mg tablet RxNorm: 834192 Take 1 Tablet(s) Oral QD 02/26/20 023 Inactive d/c pravastatin 80mg Ozempic 1 mg/dose (4 mg/3 mL) subcutaneous pen injector RxNorm: 5742010 Inject 1 Milligram(s) Subcutaneous QW once a week 02/20/20 023 Inactive pregabalin 150 mg capsule RxNorm: 091277 Take 1 Capsule(s) Oral HS at bed time 02/19/20 023 Inactive pregabalin 100 mg capsule RxNorm: 893571 Take 1 Capsule(s) Oral QAM every morning 02/18/20 023 Inactive venlafaxine ER 75 mg capsule,extended release 24 hr RxNorm: 756831 Take 3 Capsule(s) Oral QD 02/04/20 023 Inactive FreeStyle Chema 2 Sensor kit RxNorm: use as directed 02/04/20 023 Inactive FreeStyle Chema 2 Sensor kit RxNorm: use as directed 02/04/20 024 Inactive fluconazole 150 mg tablet RxNorm: 916933 Take 1 Tablet(s) Oral on day 3 and on day 6 02/03/20 024 Inactive chlorthalidone 25 mg tablet RxNorm: 666112 Take 1 Tablet(s) Oral QAM every morning 02/03/20 23 No Stop Date Active venlafaxine ER 150 mg capsule,extended release 24 hr RxNorm: 746626 Take 1 Capsule(s) Oral QD 02/03/20 023 Inactive acetaminophen 500 mg tablet RxNorm: 868403 1 TABLET ORALLY 3 TIMES DAILY (MAX APAP:4GM/24HR) 12/15/19 023 Inactive clotrimazole 1 % topical cream RxNorm: 650918 apply 1g topically to top of feet and in between toes BID 12/09/19 23 023 Inactive potassium chloride ER 20 mEq tablet,extended release RxNorm: 174798 Take 1 Tablet(s) Oral BID 12/09/19 23 024 Inactive d/c 20mEq once daily (sent from hospital) nystatin 100,000 unit/gram topical powder RxNorm: 201270 APPLY TO AFFECTED AREAS TOPICALLY 2 TIMES DAILY 11/21/19 23 023 Inactive Nystop 100,000 unit/gram topical powder RxNorm: 512759 Apply to abd folds, under breasts and L side of groin Topical BID x 14 days, then BID PRN 11/20/19 023 Inactive dx: yeast dermatitis [place] Ultra Strength 4 %-30 %-10 % topical cream RxNorm: 237752 Apply 1 Gram(s) Topical QID PRN to feet and legs for neuropathic pain 11/11/19 024 Inactive clotrimazole 1 % topical cream RxNorm: 531243 Apply 1/2 Gram(s) Topical BID Apply to affected areas of groin, periarea, and abdominal topically 2 times daily 11/10/19 023 Inactive hydrocortisone 2.5 % topical cream RxNorm: 579407 Apply 1/2 Gram(s) Topical BID as needed 11/10/19 024 Inactive Levemir FlexPen 100 unit/mL (3 mL) solution subcutaneous insulin pen RxNorm: 313758 Inject 30 Unit(s) Subcutaneous BID 10/07/19 023 Inactive Humulin R U-500 (Concentrated) Insulin 500 unit/mL subcutaneous soln RxNorm: 651053 Inject 100 Unit(s) Subcutaneous TID 10/07/19 024 Inactive Ozempic 0.25 mg or 0.5 mg (2 mg/3 mL) subcutaneous pen injector RxNorm: 9398137 Inject 1/2 Milligram(s) Subcutaneous QW once a week 10/07/19 024 Inactive aripiprazole 15 mg tablet RxNorm: 267227 1/2 TAB (7.5MG) ORALLY DAILY (DX:MAJOR DEPRESSIVE DISORDER) 09/23/19 023 Inactive Accu-Chek Guide test strips RxNorm: Use 1 Test Strip QID 09/15/19 23 023 Inactive ok to substitute with any covered alternative test strip Lancets,Thin 28 gauge RxNorm: Use 1 as directed QID 09/15/19 23 023 Inactive torsemide 20 mg tablet RxNorm: 182118 Take 1 Tablet(s) Oral BID 09/09/19 23 024 Inactive d/c once daily dosing carvedilol 25 mg tablet RxNorm: 674558 Take 1 Tablet(s) Oral QD 08/25/19 23 024 Inactive pregabalin 150 mg capsule RxNorm: 547129 1 Capsule(s) Oral HS at bed time 08/18/19 23 023 Inactive pregabalin 100 mg capsule RxNorm: 898988 1 Capsule(s) Oral QAM every morning 08/18/19 23 023 Inactive carvedilol 25 mg tablet RxNorm: 912387 1 Tablet(s) Oral QD 07/28/19 23 023 Inactive lisinopril 20 mg tablet RxNorm: 508495 Give 1 Tablet(s) Oral QD 07/28/19 23 023 Inactive Lyrica 150 mg capsule RxNorm: 372584 Take 1 Capsule(s) Oral QHS every night at bedtime 07/19/19 23 023 Inactive d/c 100mg dose Diflucan 150 mg tablet RxNorm: 228210 Take 1 Tablet(s) Oral QD repeat on day 3 and 6 07/19/19 23 023 Inactive pregabalin 100 mg capsule RxNorm: 646498 Take 1 Capsule(s) Oral QAM every morning 07/19/19 23 023 Inactive gatifloxacin 0.5 % eye drops RxNorm: 187238 Instill 1 Drop(s) as directed TID Instill 1 drop in to affected eye(s) starting 1 day prior to surgery and continue until gone (do not exceed 4 weeks). 07/13/19 23 023 Inactive carvedilol 25 mg tablet RxNorm: 347921 2 Tablet(s) Oral BID 07/13/19 23 023 Inactive Humulin R Regular U-100 Insulin 100 unit/mL injection solution RxNorm: 602981 85 Unit(s) Injection TID 07/13/19 23 023 Inactive ketorolac 0.5 % eye drops RxNorm: 809492 Instill 1 Drop(s) as directed QID Instill 1 drop into affected eye(s) 4 times daily starting 1 day prior to surgery and continue until gone (do not exceed 4 weeks). 07/13/19 23 023 Inactive Diflucan 150 mg tablet RxNorm: 393654 Take 1 Tablet(s) Oral QD repeat on day 3 and 6 06/30/19 23 023 Inactive Accu-Chek Guide test strips RxNorm: Use 1 Test Strip QID Use 1 test strip to monitor blood glucose 4 times daily and as needed. Dx:E11.42. 06/23/19 23 023 Inactive ok to substitute with any covered alternative test strip dextromethorphan-gu aifenesin 10 mg-100 mg/5 mL oral liquid RxNorm: 065926 Take 10 Milliliter(s) Oral every 4 hours as needed for cough 06/19/19 23 023 Inactive dextromethorphan-gu aifenesin 10 mg-100 mg/5 mL oral liquid RxNorm: 326755 Take 10 Milliliter(s) Oral every 4 hours as needed for cough 06/19/19 023 Inactive Lyrica 150 mg capsule RxNorm: 407648 Take 1 Capsule(s) Oral QHS every night at bedtime 06/18/19 23 023 Inactive d/c 100mg dose aripiprazole 15 mg tablet RxNorm: 812045 1/2 TAB (7.5MG) ORALLY DAILY (DX:MAJOR DEPRESSIVE DISORDER) 06/05/19 23 023 Inactive pregabalin 100 mg capsule RxNorm: 548214 1 Capsule(s) Oral QAM every morning 06/02/19 23 023 Inactive Banophen 50 mg capsule RxNorm: 9343233 Take 1 Capsule(s) Oral Q6H every 6 hours as needed 05/19/19 23 No Stop Date Active Novolog Flexpen U-100 Insulin aspart 100 unit/mL (3 mL) subcutaneous RxNorm: 6744539 Inject 10 Unit(s) Subcutaneous QHS every night at bedtime with nighttime snack 04/08/20 22 022 Inactive Novolog Flexpen U-100 Insulin aspart 100 unit/mL (3 mL) subcutaneous RxNorm: 8898413 Inject 42 Unit(s) Subcutaneous TID in addition to sliding scale 04/08/20 022 Inactive d/c 36u albuterol sulfate HFA 90 mcg/actuation aerosol inhaler RxNorm: 7697135 Take 2 Puff(s) Inhalation Q4H every four hours as needed as needed for SOB, cough, or wheezing 04/07/20 030 Active Banophen 50 mg capsule RxNorm: 2532854 Take 1 Capsule(s) Oral Q6H every 6 hours as needed 04/06/20 023 Inactive diphenhydramine 50 mg tablet RxNorm: 2794259 Take 1 Tablet(s) Oral Q6H every 6 hours as needed 04/06/20 022 Inactive diphenhydramine 50 mg tablet RxNorm: 0097867 1 Tablet(s) Oral Q6H every 6 hours as needed 04/06/20 022 Inactive Abilify 15 mg tablet RxNorm: 119333 1/2 Tablet(s) Oral QD 03/10/20 023 Inactive Shingrix (PF) 50 mcg/0.5 mL intramuscular suspension, kit RxNorm: 3497012 Administer 1/2 Milliliter(s) Intramuscular QD one time shingrix step 2 ( step 1 given 11/04/21) WITH needle - Nursing please administer upon arrival and once administered post a bridge message with date of administration, facility rehab director, expiration date, and lot# so we can update [facility] 02/18/20 22 022 Inactive dispense with needle Shingrix (PF) 50 mcg/0.5 mL intramuscular suspension, kit RxNorm: 4290113 Administer 1/2 Milliliter(s) Intramuscular QD one time shingrix step 2 ( step 1 given 11/04/21) WITH needle - Nursing please administer upon arrival and once administered post a bridge message with date of administration, facility rehab director, expiration date, and lot# so we can update [facility] 02/18/20 22 022 Inactive dispense with needle polyethylene glycol 3350 17 gram/dose oral powder RxNorm: 577622 Take 17=1 capful Gram(s) Oral QD mix with 4-8oz of liquid 01/08/20 22 023 Inactive take this in addition to BID prn order Lyrica 100 mg capsule RxNorm: 546014 Take 1 Capsule(s) Oral QAM every morning 01/08/20 22 022 Inactive d/c 50mg dose acetaminophen 500 mg tablet RxNorm: 898715 Take 1 Tablet(s) Oral TID 01/08/20 22 022 Inactive d/c PRN order Lyrica 150 mg capsule RxNorm: 516505 Take 1 Capsule(s) Oral QHS every night at bedtime 01/08/20 22 023 Inactive d/c 100mg dose Abilify 5 mg tablet RxNorm: 554883 Take 1 Tablet(s) Oral QD take 1 tab po QD #30 refill 5 dx: MDD 12/12/19 22 022 Inactive Abilify 5 mg tablet RxNorm: 826660 Take 1 Tablet(s) Oral QD take 1 tab po QD #30 refill 5 dx: MDD 12/12/19 22 022 Inactive Novolog Flexpen U-100 Insulin aspart 100 unit/mL (3 mL) subcutaneous RxNorm: 5428347 Inject 42 Unit(s) Subcutaneous TID in addition to sliding scale 12/10/19 22 022 Inactive d/c 36u chlorthalidone 25 mg tablet RxNorm: 020772 Take 1 Tablet(s) Oral QAM every morning 12/10/19 22 023 Inactive pregabalin 50 mg capsule RxNorm: 191026 Take 1 Capsule(s) Oral QAM every morning 11/12/19 22 022 Inactive tetanus-diphtheria toxoids-Td 2 Lf unit-2 Lf unit/0.5 mL IM suspension RxNorm: 139 Take 0.5 Miscellaneous Intramuscular 11/12/19 22 022 Inactive need tdap - nursing to administer upon arrival pregabalin 50 mg capsule RxNorm: 078872 Take 1 Capsule(s) Oral QAM every morning 10/16/19 22 022 Inactive pregabalin 50 mg capsule RxNorm: 962634 Take 1 Capsule(s) Oral QAM every morning 10/16/19 22 022 Inactive pregabalin 50 mg capsule RxNorm: 132013 1 Capsule(s) Oral QAM every morning 10/15/19 22 Inactive Shingrix (PF) 50 mcg/0.5 mL intramuscular suspension, kit RxNorm: 6374460 Administer 1/2 Milliliter(s) Intramuscular one time Nursing please administer upon arrival and once administered post a bridge message with date of administration, facility rehab director, expiration date, and lot# so we can update [facility]. 10/09/19 22 022 Inactive shingrix step 1 Shingrix (PF) 50 mcg/0.5 mL intramuscular suspension, kit RxNorm: 6625975 Administer 1/2 Milliliter(s) Intramuscular one time Nursing please administer upon arrival and once administered post a bridge message with date of administration, facility rehab director, expiration date, and lot# so we can update [facility]. 10/09/19 22 Inactive shingrix step 1 cholecalciferol (vitamin D3) 1,250 mcg (50,000 unit) capsule RxNorm: 923833 Take 1 Capsule(s) Oral QW once a [...] aspart 100 unit/mL (3 mL) subcutaneous RxNorm: 6047216 Inject 10 Unit(s) Subcutaneous QHS every night at bedtime with nighttime snack 10/08/19 22 Inactive Shingrix (PF) 50 mcg/0.5 mL intramuscular suspension, kit RxNorm: 4925371 ADMINISTER 2-DOSE SERIES PER CDC GUIDELINES 10/08/19 22 Active Shingrix (PF) 50 mcg/0.5 mL intramuscular suspension, kit RxNorm: 5209187 ADMINISTER 2-DOSE SERIES PER CDC GUIDELINES 10/08/19 Inactive Novolog Flexpen U-100 Insulin aspart 100 unit/mL (3 mL) subcutaneous RxNorm: 3507916 Inject 36 Unit(s) Subcutaneous TID in addition to sliding scale 10/08/19 22 Inactive Novofine Autocover 30 gauge x 1/3 needle RxNorm: Use 1 Miscellaneous UD as directed Use 1 needle as directed to administer insulin 5 times a day Dx:E11.42. 10/03/19 Inactive ok to substitute with any covered alternative pen needle benzoyl peroxide 10 % topical cleanser RxNorm: 560065 Apply 1 Application Topical QD apply to face, wash rinse and dry once daily (may change to QOD if drying) 08/19/19 022 Inactive (%covered by insurance) #60ml refill 11 dx: acne benzoyl peroxide 10 % topical cleanser RxNorm: 459591 Apply 1 Application Topical QD apply to face, wash rinse and dry once daily (may change to QOD if drying) 08/19/19 022 Inactive (%covered by insurance) #60ml refill 11 dx: acne benzoyl peroxide 10 % topical cleanser RxNorm: 656035 Apply 1 Application Topical QD apply to face, wash rinse and dry once daily (may change to QOD if drying) 08/19/19 022 Inactive (%covered by insurance) #60ml refill 11 dx: acne Lyrica 50 mg capsule RxNorm: 592985 Take 1 Capsule(s) Oral QAM every morning Take 1 capsule by mouth once daily 08/19/19 22 022 Inactive benzoyl peroxide 10 % topical cleanser RxNorm: 889067 Apply 1 Application Topical QD apply to face, wash rinse and dry once daily (may change to QOD if drying) 08/19/19 022 Inactive (%covered by insurance) #60ml refill 11 dx: acne Lyrica 100 mg capsule RxNorm: 568850 Take 1 Capsule(s) Oral QHS every night at bedtime Take 1 capsule by mouth once daily at bedtime 08/19/19 22 Inactive Lyrica 100 mg capsule RxNorm: 336184 Take 1 Capsule(s) Oral QHS every night at bedtime Take 1 capsule by mouth once daily at bedtime 08/16/19 22 022 Inactive Lyrica 50 mg capsule RxNorm: 086220 Take 1 Capsule(s) Oral QAM every morning Take 1 capsule by mouth once daily 08/16/19 22 022 Inactive Levemir FlexTouch U-100 Insulin 100 unit/mL (3 mL) subcutaneous pen RxNorm: 399667 Inject 86 Unit(s) Subcutaneous BID 08/05/19 22 022 Inactive d/c 83units BID Lyrica 100 mg capsule RxNorm: 571925 Take 1 Capsule(s) Oral QHS every night at bedtime Take 1 capsule by mouth once daily at bedtime 07/14/19 22 022 Inactive Lyrica 50 mg capsule RxNorm: 870193 Take 1 Capsule(s) Oral QAM every morning Take 1 capsule by mouth once daily 07/14/19 22 022 Inactive Levemir FlexTouch U-100 Insulin 100 unit/mL (3 mL) subcutaneous pen RxNorm: 313789 Inject 83 Unit(s) Subcutaneous BID 07/08/19 22 [...] test strip hydralazine 50 mg tablet RxNorm: 137014 Take 1 Tablet(s) Oral QID 05/05/20 21 022 Inactive venlafaxine ER 225 mg tablet,extended release 24 hr RxNorm: 332801 Take 1 Tablet(s) Oral QD 05/05/20 21 021 Inactive venlafaxine ER 225 mg tablet,extended release 24 hr RxNorm: 484383 Take 1 Tablet(s) Oral QD 05/05/20 21 022 Inactive isosorbide mononitrate ER 30 mg tablet,extended release 24 hr RxNorm: 119102 Take 1 Tablet(s) Oral QD 05/05/20 024 Inactive hydralazine 50 mg tablet RxNorm: 493023 Take 1 Tablet(s) Oral QID 05/05/20 21 021 Inactive aspirin 81 mg tablet,delayed release RxNorm: 427870 Take 1 Tablet(s) Oral QD 03/31/20 21 022 Inactive Vitamin D2 1,250 mcg (50,000 unit) capsule RxNorm: 2418899 Take 1 Capsule(s) Oral QW once a week x 12 weeks 03/31/20 022 Inactive Vitamin D2 1,250 mcg (50,000 unit) capsule RxNorm: 4356670 Take 1 Capsule(s) Oral QW once a week 03/31/20 21 021 Inactive Zetia 10 mg tablet RxNorm: 248542 Take 1 Tablet(s) Oral QD 03/31/20 024 Inactive Zetia 10 mg tablet RxNorm: 862419 Take 1 Tablet(s) Oral QD 03/31/20 021 Inactive hydralazine 25 mg tablet RxNorm: 651338 Take 1 Tablet(s) Oral QID 03/31/20 021 Inactive hydralazine 25 mg tablet RxNorm: 487879 Take 1 Tablet(s) Oral QID 03/31/20 021 Inactive hydralazine 10 mg tablet RxNorm: 463969 Take 1 Tablet(s) Oral QID 03/03/20 021 Inactive cephalexin 500 mg tablet RxNorm: 484950 Take 1 Tablet(s) Oral QID 02/27/20 021 Inactive cephalexin 500 mg tablet RxNorm: 188569 Take 1 Tablet(s) Oral QID 02/27/20 021 Inactive lisinopril 40 mg tablet RxNorm: 200597 Take 1 Tablet(s) Oral QD 02/11/20 023 Inactive Eliquis 5 mg tablet RxNorm: 3195816 Take 1 Tablet(s) Oral BID 01/05/20 022 Inactive Eliquis 5 mg tablet RxNorm: 0379537 Take 2 Tablet(s) Oral QD 01/01/20 21 021 Inactive Lyrica 50 mg capsule RxNorm: 527059 Take 1 Capsule(s) Oral QAM every morning 12/24/19 21 021 Inactive Lyrica 100 mg capsule RxNorm: 139244 Take 1 Capsule(s) Oral QHS every night at bedtime 12/24/19 21 021 Inactive clotrimazole 1 % topical cream RxNorm: 453820 Apply to right foot and toes Topical BID 12/04/19 21 023 Inactive metoprolol succinate ER 200 mg tablet,extended release 24 hr RxNorm: 866236 Take 1 Tablet(s) Oral QD 12/04/19 21 023 Inactive ciprofloxacin 500 mg tablet RxNorm: 189728 Take 1 Tablet(s) Oral QD 11/30/19 21 021 Inactive DX ofloxacin otic drops Accu-Chek Guide test strips RxNorm: USE 1 TO CHECK GLUCOSE 4 TIMES DAILY AND NEEDED 11/15/19 21 023 Inactive Blood Glucose Test strips RxNorm: Use 1 Test Strip QID at PRN 11/05/19 21 023 Inactive E11.42 lisinopril 30 mg tablet RxNorm: 519017 Take 1 Tablet(s) Oral QD 10/30/19 21 021 Inactive lisinopril 20 mg tablet RxNorm: 696112 Take 1 Tablet(s) Oral QD 10/23/19 21 021 Inactive lisinopril 20 mg tablet RxNorm: 971816 Take 1 Tablet(s) Oral QD 10/23/19 21 021 Inactive lisinopril 10 mg tablet RxNorm: 785715 Take 1 Tablet(s) Oral QD 10/02/19 021 Inactive icosapent ethyl 1 gram capsule RxNorm: 5119688 Take 2 Capsule(s) (2 gm) Oral BID with meals 09/12/19 21 024 Inactive Okay to dispense one 2gm tab if you have that available. icosapent ethyl 1 gram capsule RxNorm: 9977730 Take 2 Capsule(s) Oral BID 09/12/19 21 021 Inactive Okay to dispense one 2gm tab if you have that available. amlodipine 10 mg tablet RxNorm: 159346 Take 1 Tablet(s) Oral QD 09/04/19 022 Inactive aspirin 81 mg tablet,delayed release RxNorm: 503400 Take 1 Tablet(s) Oral QD 09/04/19 21 021 Inactive Levemir FlexTouch U-100 Insulin 100 unit/mL (3 mL) subcutaneous pen RxNorm: 391146 Inject 150 Unit(s) Subcutaneous BID 09/04/19 21 022 Inactive venlafaxine ER 150 mg tablet,extended release 24 hr RxNorm: 567398 Take 1 Tablet(s) Oral QD 09/04/19 21 021 Inactive clotrimazole-betame thasone 1 %-0.05 % topical cream RxNorm: 218128 Apply to rash on red area on left abdomen/chest Topical BID 08/10/19 21 Inactive amlodipine 5 mg tablet RxNorm: 151105 Take 1 Tablet(s) Oral QD 07/31/19 21 Inactive cephalexin 500 mg tablet RxNorm: 025823 Take 1 Tablet(s) Oral BID BID - Twice Daily 07/31/19 Inactive Start 08/01/20 pantoprazole 40 mg tablet,delayed release RxNorm: 412874 Take 1 Tablet(s) Oral QAM every morning 07/08/19 Inactive senna 8.6 mg tablet RxNorm: 443791 Take 1 Tablet(s) Oral QD 07/08/19 022 Inactive carbamazepine 200 mg tablet RxNorm: 529907 Take 1 Tablet(s) Oral BID 07/08/19 Inactive clopidogrel 75 mg tablet RxNorm: 808781 Take 1 Tablet(s) Oral QD 07/08/19 021 Inactive Blood Glucose Test strips RxNorm: Use 1 Test Strip QID at PRN 07/08/19 Inactive E11.42 Novolog Flexpen U-100 Insulin aspart 100 unit/mL (3 mL) subcutaneous RxNorm: 5367159 Administer per sliding scale Milliliter(s) Subcutaneous TID 151-200: 10 u; 201-250: 20 u; 251-300: 30 u; 301-350: 40 u; 351-400: 50 u. 07/08/19 022 Inactive lisinopril 5 mg tablet RxNorm: 874314 Take 1 Tablet(s) Oral QD 07/08/19 021 Inactive Novolog Flexpen U-100 Insulin aspart 100 unit/mL (3 mL) subcutaneous RxNorm: 8974766 Inject 85 Unit(s) Subcutaneous TID 07/08/19 022 Inactive pravastatin 80 mg tablet RxNorm: 286731 Take 1 Tablet(s) Oral QHS every night at bedtime 07/08/19 023 Inactive clotrimazole 1 % topical cream RxNorm: 538755 Apply to bilateral groin areas Topical BID 07/08/19 022 Inactive metoprolol succinate ER 200 mg tablet,extended release 24 hr RxNorm: 630318 Take 1 Tablet(s) Oral QD 07/08/19 21 021 Inactive Vitamin D3 25 mcg (1,000 unit) tablet RxNorm: 218150 Take 1 Tablet(s) Oral QD 07/08/19 021 Inactive isosorbide dinitrate 30 mg tablet RxNorm: 260520 Take 1 Tablet(s) Oral QD 07/08/19 021 Inactive Levemir FlexTouch U-100 Insulin 100 unit/mL (3 mL) subcutaneous pen RxNorm: 607704 Inject 140 Unit(s) Subcutaneous BID 07/08/19 021 Inactive torsemide 20 mg tablet RxNorm: 493714 Take 1 Tablet(s) Oral QD 07/08/19 023 Inactive venlafaxine 75 mg tablet RxNorm: 819587 Take 1 Tablet(s) Oral QD 07/08/19 021 Inactive acetaminophen 500 mg tablet RxNorm: 583116 Take 1 Tablet(s) Oral TID as needed for headache 06/18/19 021 Inactive acetaminophen 500 mg tablet RxNorm: 427936 Take 1 Tablet(s) Oral TID as needed for headache 06/18/19 021 Inactive Lyrica 100 mg capsule RxNorm: 654444 Take 1 Capsule(s) Oral QHS every night at bedtime 06/11/19 021 Inactive Lyrica 50 mg capsule RxNorm: 920602 Take 1 Capsule(s) Oral QAM every morning 06/10/19 21 021 Inactive hydrocortisone 2.5 % topical cream RxNorm: 929440 Apply to bilateral groin creases Topical BID 05/15/20 20 021 Inactive clotrimazole 1 % topical cream RxNorm: 613194 Apply to bilateral groin areas Topical BID 05/15/20 20 021 Inactive Lyrica 50 mg capsule RxNorm: 130867 Take 1 Capsule(s) Oral QAM every morning 05/14/20 20 Inactive Lyrica 100 mg capsule RxNorm: 588536 Take 1 Capsule(s) Oral QHS every night [...] Inactive Nystop 100,000 unit/gram topical powder RxNorm: 347523 Apply to abd folds, under breasts and L side of groin Topical BID x 14 days, then BID PRN 04/08/20 20 Inactive dx: yeast dermatitis Lyrica 100 mg capsule RxNorm: 643338 Take 1 Capsule(s) Oral QHS every night at bedtime 03/13/20 20 Inactive Lyrica 50 mg capsule RxNorm: 708500 Take 1 Capsule(s) Oral QAM every morning 03/13/20 20 Inactive ketoconazole 2 % shampoo RxNorm: 152771 Apply Topical two times a week with showers 03/11/20 20 024 Inactive cholecalciferol (vitamin D3) 50 mcg (2,000 unit) tablet RxNorm: 567188 Take 1 Tablet(s) Oral QD 03/11/20 20 021 Inactive Zetia 10 mg tablet RxNorm: 265800 Take 1 Tablet(s) Oral QD 03/07/20 20 021 Inactive Zetia 10 mg tablet RxNorm: 967974 Take 1 Tablet(s) Oral QD 03/07/20 20 Inactive Lyrica 50 mg capsule RxNorm: 499995 Take 1 Capsule(s) Oral QAM every morning 02/15/20 20 Inactive Lyrica 100 mg capsule RxNorm: 630987 Take 1 Capsule(s) Oral QHS every night at bedtime 02/15/20 20 Inactive Lyrica 100 mg capsule RxNorm: 252534 Take 1 Capsule(s) Oral QHS every night at bedtime 02/15/20 20 Inactive Lyrica 50 mg capsule RxNorm: 192897 Take 1 Capsule(s) Oral QAM every morning 02/15/20 20 Inactive metoprolol succinate ER 200 mg tablet,extended release 24 hr RxNorm: 000346 Take 1 Tablet(s) Oral QD 08/12/19 23 Active loperamide 2 mg capsule RxNorm: 219285 Take 1 Capsule(s) Oral QID as needed 06/12/19 22 Active hydralazine 50 mg tablet RxNorm: 686888 Take 1 Tablet(s) Oral QID 08/12/19 23 Active venlafaxine ER 75 mg capsule,extended release 24 hr RxNorm: 453194 Take 3 Capsule(s) Oral QD 06/12/19 22 023 Inactive polyethylene glycol 3350 17 gram/dose oral powder RxNorm: 572170 Take 17=1 capful Gram(s) Oral BID as needed mix with 4-8oz of liquid 06/12/19 22 024 Inactive icosapent ethyl 1 gram capsule RxNorm: 4601133 Take 2 Capsule(s) (2 gm) Oral BID with meals 10/07/19 23 023 Inactive Okay to dispense one 2gm tab if you have that available. Levemir FlexTouch U-100 Insulin 100 unit/mL (3 mL) subcutaneous pen RxNorm: 171776 Inject 80 Unit(s) Subcutaneous BID 07/14/19 23 023 Inactive Novolog Flexpen U-100 Insulin aspart 100 unit/mL (3 mL) subcutaneous RxNorm: 1313302 Insert 30 Unit(s) Subcutaneous TID with meals [...] Date Patient Education: Patient Medication Summary Completed 03/01/2024 Appointment: Brian Munson WPtel: [address] [place], [place] [id number] [facility] 02/08/2024 Appointment: Brian Munsontel: [address] [facility] 300 [id number] [place] F/U 01/11/2024 Appointment: Amber Sandra WPtel: [address] [facility] 300 [id number] Telehealth Psych Follow Up 12/09 Appointment: Tapan Shirley WPtel: [address] [facility] 300 [id number] [place] [facility] 10/26/2022 Referral: [facility] WPtel: [address], [address] [id number] Referral Records Received 09/21/2022 Appointment: Tapan Shirley WPtel: [address] [facility] 300 [id number] [place] F/U 08/11/2022 Appointment: Tapan Shirley WPtel: [address] [facility] 300 [id number] [place] F/U 07/14/2022 Appointment: Tapan Shirley WPtel: [address] [facility] 300 [id number] [place] F/U 02/10/2022 Referral: [facility] WPtel: [address] [id number] [place] Referral Completed 05/28/2021 Referral: General Cardiology Referral Complet ed 01/03/2021 Referral: General Psychologist Referral Close d Referral: General Psychiatrist Referral Patient/Family Scheduling Appointment Referral: General Physical Medicine Referral Facility Scheduling Appointment Instructions Comment Date Leonid is a?? Male being seen living at [facility]. Initial [facility] visit 01/2020. PMHx including DMII, CAD w/ 5 stents, Depression, Seizure Disorder and CKD stage 3. He moved into [facility] in 12/2019 but after a hospitalization 05/2021 he moved to the [facility] to have closer nursing attention.??Sister Jyotsna involved in his care cell# [phone]??Guardian: Giulia (tapan met in person 09/01/21), now [...] )??Bobbi note from 11.08.2023 at [facility] (follow up 6 months)Colon & Rectal Surgery visit scheduled for 03/08/24 with Matilde Pérez PA-C.?? 02/08/2024
--- OUTSIDE RECORDS SUMMARY | 2024-03-03 14:25 | XMS_ITS | CCD ---
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 Corporate Financial Analyst Name Role Phone Arpit MCKINLEY-C, [place] Primary Care Provider Leona vailable [place] PRODUCTION EDITOR-C, [facility] Chronic Care Management U navailable Summary Purpose DataExchange Insurance Providers Payer name Policy type / Coverage type Covered libertarian ID Effective Begin Date Effective End Date [place] Part [place] [id number] Unknown Unknown [place] [id number] Unknown Unknown Family history Sister Brittany Suggs Diagnosis Age At Onset No Family Disease Entered N/A Runs in the family Diagnosis Age At Onset No Known Diseases N/A Sister Blanka Mcduffie Diagnosis Age At Onset No Family Disease Entered N/A Social History Social History Element Codes Description Effec tive Dates Tobacco history SNOMED CT: 253562885 Never smoker 01/16 Sexually Active? Unknown No [...] Living arrangements Unknown Senior Living 09/03/[address]: 391370133 No Alcohol Consum ption 09/02/2020 Allergies, Adverse Reactions, Alerts Substance Reaction Codes Entered Date Inactivated Date Status * NO KNOWN FOOD ALLERGIES Unknown 07/13/2023 No Inactive Date Active LISINOPRIL RxNorm: 60843 02/12/2020 No Inactive Da te Active Metformin [...] Coronary artery disease invo [place]ving [place] coronary artery of [place] heart, angina presence unspecified ICD-10: I25.10 ICD-9: [...] 03/02/20 Inactive Pen Needle 30 gauge x 09/29 RxNorm: Pen(s) Use 1 needle as directed TID 03/02/20 024 Inactive nystatin 100,000 unit/gram topical powder RxNorm: 759979 Apply 1 Application Topical BID as needed abdominal/breast /groin folds 03/02/20 024 Active FreeStyle Chema 2 Sensor kit RxNorm: Use UD as directed 03/02/20 025 Active Accu-Chek Guide test strips RxNorm: Use 1 Test Strip QID 03/02/20 025 Active ok to substitute with any covered alternative test strip Lancets,Thin 28 gauge RxNorm: Use 1 as directed QID lancet 03/02/20 24 025 Active Pen Needle 30 gauge x 516 RxNorm: Pen(s) Use 1 needle as directed TID 03/02/20 025 Active Humulin R U-500 (Concentrated) Insulin 500 unit/mL subcutaneous soln RxNorm: 341915 Inject 100 Unit(s) Subcutaneous TID 02/17/20 24 025 Active Tusharagldestin MendenhallPen U-100 Insulin 100 unit/mL (3 mL) subcutaneous RxNorm: 9426291 Inject 30 Unit(s) Subcutaneous BID 02/10/20 24 024 Active Please dispense one month supply. Humulin R U-500 (Concentrated) Insulin 500 unit/mL subcutaneous soln RxNorm: 364003 Inject 100 Unit(s) Subcutaneous TID 02/10/20 24 024 Inactive pregabalin 100 mg capsule RxNorm: 507455 Take 1 Capsule(s) Oral QAM every morning 02/07/20 24 024 Active isosorbide mononitrate ER 60 mg tablet,extended release 24 hr RxNorm: 092530 Take 1 Tablet(s) Oral QD 02/01/20 24 025 Active aripiprazole 15 mg tablet RxNorm: 470762 Take 1/2 Tablet(s) Oral QD 02/01/20 24 025 Active torsemide 20 mg tablet RxNorm: 390986 1 TAB ORALLY DAILY (DX: EDEMA) 01/27/20 No Stop Date Active potassium chloride ER 20 mEq tablet,extended release(part/cryst) RxNorm: 7542449 2 TABS (40MEQ) ORALLY TWICE DAILY (DX: HYPOKALEMIA) 01/27/20 No Stop Date Active cephalexin 500 mg capsule RxNorm: 800111 Take 1 Capsule(s) Oral QID 12/17/19 24 024 Inactive cephalexin 500 mg capsule RxNorm: 829912 Take 1 Capsule(s) Oral QID 12/17/19 24 024 Inactive acetaminophen 500 mg tablet RxNorm: 764093 (MAX APAP:4GM/24HR) Take 1 Tablet(s) Oral TID as needed for pain 12/10/19 24 024 Active torsemide 20 mg tablet RxNorm: 789720 Take 1 Tablet(s) Oral QD 10/26/19 24 024 Inactive potassium chloride ER 20 mEq tablet,extended release RxNorm: 089102 Take 2 Tablet(s) Oral BID 10/26/19 24 Active torsemide 20 mg tablet RxNorm: 036533 Take 1 Tablet(s) Oral QD 10/26/19 24 024 Inactive potassium chloride ER 20 mEq tablet,extended release RxNorm: 634010 Take 2 Tablet(s) Oral BID 10/26/19 24 Inactive Artificial Tears (PF) 0.1 %-0.3 % drops in a dropperette RxNorm: 903607 Apply 1-2 Drop(s) Both eyes BID as needed 09/28/19 24 Active erythromycin 5 mg/gram (0.5 %) eye ointment RxNorm: 884377 Apply 1 Application Both eyes QHS every night at bedtime Instill ~1 cm ribbon into affected eye 09/28/19 24 024 Inactive Artificial Tears (PF) 0.1 %-0.3 % drops in a dropperette RxNorm: 859211 Apply 1-2 Drop(s) Both eyes BID as needed 09/28/19 24 024 Inactive erythromycin 5 mg/gram (0.5 %) eye ointment RxNorm: 124446 Apply 1 Application Both eyes QHS every night at bedtime Instill ~1 cm ribbon into affected eye 09/28/19 24 024 Inactive acetaminophen 500 mg tablet RxNorm: 759828 (MAX APAP:4GM/24HR) Take 1 Tablet(s) Oral TID as needed for pain 09/24/19 24 024 Inactive carvedilol 25 mg tablet RxNorm: 629459 Take 1 Tablet(s) Oral QD 09/08/19 24 No Stop Date Active pregabalin 100 mg capsule RxNorm: 745408 Take 1 Capsule(s) Oral QAM every morning 09/07/19 24 024 Inactive rosuvastatin 40 mg tablet RxNorm: 045910 Take 1 Tablet(s) Oral QPM every evening 07/13/19 24 No Stop Date Active ezetimibe 10 mg tablet RxNorm: 512518 Take 1 Tablet(s) Oral QD 07/13/19 24 No Stop Date Active bisacodyl 10 mg rectal suppository RxNorm: 903322 Insert 1 Suppository Rectal QD as needed 07/13/19 24 No Stop Date Active polyethylene glycol 3350 17 gram/dose oral powder RxNorm: 572286 Take 17 Gram(s) Oral BID as needed mix in 4-8ox water 07/13/19 24 No Stop Date Active ketoconazole 2 % shampoo RxNorm: 282710 Apply 1 Application Topical UD as directed 07/13/19 24 No Stop Date Active Ozempic 1 mg/dose (4 mg/3 mL) subcutaneous pen injector RxNorm: 0126086 Inject 1 Milligram(s) Subcutaneous QW once a week 07/13/19 24 No Stop Date Active Guaifenesin AC 10 mg-100 mg/5 mL oral liquid RxNorm: 431078 Take 10 Milliliter(s) Oral Q4H every four hours as needed 07/13/19 24 No Stop Date Active ammonium lactate 12 % topical cream RxNorm: 503081 Apply 1 Application Topical BID 07/13/19 24 No Stop Date Active hydrocortisone 2.5 % topical cream RxNorm: 108402 Apply 1 Application Topical BID as needed 07/13/19 24 No Stop Date Active rosuvastatin 20 mg sprinkle capsule RxNorm: 2390473 Take 1 Capsule(s) Oral QD 07/13/19 24 No Stop Date Active Vascepa 1 gram capsule RxNorm: 7047813 Take 2 Capsule(s) Oral BID 07/13/19 24 No Stop Date Active venlafaxine ER 75 mg capsule,extended release 24 hr RxNorm: 719586 Take 3 Capsule(s) Oral QD 07/13/19 24 No Stop Date Active aripiprazole 15 mg tablet RxNorm: 307714 Take 1/2 Tablet(s) Oral QD 07/13/19 24 024 Inactive isosorbide mononitrate ER 60 mg tablet,extended release 24 hr RxNorm: 563094 Take 1 Tablet(s) Oral QD 07/13/19 24 024 Inactive Basaglar KwikPen U-100 Insulin 100 unit/mL (3 mL) subcutaneous RxNorm: 2543712 Inject 30U SubQ twice daily 07/07/19 24 024 Inactive Please dispense one month supply. Basaglar KwikPen U-100 Insulin 100 unit/mL (3 mL) subcutaneous RxNorm: 4618215 Inject 30U SubQ twice daily 07/07/19 24 024 Inactive Please dispense one month supply. pregabalin 150 mg capsule RxNorm: 709149 Take 1 Capsule(s) Oral QHS every night at bedtime 07/05/19 24 024 Inactive pregabalin 150 mg capsule RxNorm: 122584 Take 1 Capsule(s) Oral QHS every night at bedtime 07/05/19 24 024 Inactive polyethylene glycol 3350 17 gram/dose oral powder RxNorm: 559151 Take 1 Packet Oral QD as needed (1 packet = 17g) mix with 4-8oz of liquid 06/15/19 24 024 Inactive bisacodyl 10 mg rectal suppository RxNorm: 397214 Insert one suppository per rectum once daily as needed for constipation 06/15/19 24 024 Inactive bisacodyl 10 mg rectal suppository RxNorm: 698650 Insert one suppository per rectum once daily as needed for constipation 06/15/19 24 024 Inactive pregabalin 100 mg capsule RxNorm: 399113 Take 1 Capsule(s) Oral QAM every morning 04/27/20 23 024 Inactive Levemir FlexPen 100 unit/mL (3 mL) solution subcutaneous insulin pen RxNorm: 055267 Inject 30 Unit(s) Subcutaneous BID 04/27/20 23 024 Inactive rosuvastatin 40 mg tablet RxNorm: 622606 Take 1 Tablet(s) Oral QPM every evening 04/16/20 024 Inactive D/C rosuvastatin 20mg venlafaxine ER 75 mg capsule,extended release 24 hr RxNorm: 557844 Take 3 Capsule(s) Oral QD 04/14/20 23 023 Inactive pregabalin 100 mg capsule RxNorm: 643104 Take 1 Capsule(s) Oral QAM every morning [...] strip clotrimazole 1 % topical cream RxNorm: 770295 Take apply topically to abdominal folds twice daily for 14 days 03/12/20 024 Inactive Ozempic 1 mg/dose (4 mg/3 mL) subcutaneous pen injector RxNorm: 6388299 Inject 1 Milligram(s) Subcutaneous QW once a week 03/11/20 023 Inactive rosuvastatin 20 mg tablet RxNorm: 332496 Take 1 Tablet(s) Oral QD 02/26/20 23 023 Inactive d/c pravastatin 80mg Ozempic 1 mg/dose (4 mg/3 mL) subcutaneous pen injector RxNorm: 6034902 Inject 1 Milligram(s) Subcutaneous QW once a week 02/20/20 23 023 Inactive pregabalin 150 mg capsule RxNorm: 630984 Take 1 Capsule(s) Oral HS at bed time 02/19/20 23 023 Inactive pregabalin 100 mg capsule RxNorm: 721415 Take 1 Capsule(s) Oral QAM every morning 02/18/20 023 Inactive venlafaxine ER 75 mg capsule,extended release 24 hr RxNorm: 034812 Take 3 Capsule(s) Oral QD 02/04/20 23 023 Inactive FreeStyle Chema 2 Sensor kit RxNorm: use as directed 02/04/20 23 023 Inactive FreeStyle Chema 2 Sensor kit RxNorm: use as directed 02/04/20 23 024 Inactive fluconazole 150 mg tablet RxNorm: 372939 Take 1 Tablet(s) Oral on day 3 and on day 6 02/03/20 23 024 Inactive chlorthalidone 25 mg tablet RxNorm: 426769 Take 1 Tablet(s) Oral QAM every morning 02/03/20 23 No Stop Date Active venlafaxine ER 150 mg capsule,extended release 24 hr RxNorm: 924148 Take 1 Capsule(s) Oral QD 02/03/20 23 023 Inactive acetaminophen 500 mg tablet RxNorm: 734844 1 TABLET ORALLY 3 TIMES DAILY (MAX APAP:4GM/24HR) 12/15/19 23 023 Inactive clotrimazole 1 % topical cream RxNorm: 411945 apply 1g topically to top of feet and in between toes BID 12/09/19 23 023 Inactive potassium chloride ER 20 mEq tablet,extended release RxNorm: 276854 Take 1 Tablet(s) Oral BID 12/09/19 23 024 Inactive d/c 20mEq once daily (sent from hospital) nystatin 100,000 unit/gram topical powder RxNorm: 505101 APPLY TO AFFECTED AREAS TOPICALLY 2 TIMES DAILY 11/21/19 23 023 Inactive Nystop 100,000 unit/gram topical powder RxNorm: 800790 Apply to abd folds, under breasts and L side of groin Topical BID x 14 days, then BID PRN 11/20/19 023 Inactive dx: yeast dermatitis [place] Ultra Strength 4 %-30 %-10 % topical cream RxNorm: 742675 Apply 1 Gram(s) Topical QID PRN to feet and legs for neuropathic pain 11/11/19 23 024 Inactive clotrimazole 1 % topical cream RxNorm: 185080 Apply 1/2 Gram(s) Topical BID Apply to affected areas of groin, periarea, and abdominal topically 2 times daily 11/10/19 23 023 Inactive hydrocortisone 2.5 % topical cream RxNorm: 982397 Apply 1/2 Gram(s) Topical BID as needed 11/10/19 024 Inactive Levemir FlexPen 100 unit/mL (3 mL) solution subcutaneous insulin pen RxNorm: 991056 Inject 30 Unit(s) Subcutaneous BID 10/07/19 23 023 Inactive Humulin R U-500 (Concentrated) Insulin 500 unit/mL subcutaneous soln RxNorm: 957280 Inject 100 Unit(s) Subcutaneous TID 05/23 024 Inactive Ozempic 0.25 mg or 0.5 mg (2 mg/3 mL) subcutaneous pen injector RxNorm: 2242050 Inject 1/2 Milligram(s) Subcutaneous QW once a week 10/07/19 024 Inactive aripiprazole 15 mg tablet RxNorm: 633449 1/2 TAB (7.5MG) ORALLY DAILY (DX:MAJOR DEPRESSIVE DISORDER) 09/23/19 023 Inactive Accu-Chek Guide test strips RxNorm: Use 1 Test Strip QID 09/15/19 023 Inactive ok to substitute with any covered alternative test strip Lancets,Thin 28 gauge RxNorm: Use 1 as directed QID 09/15/19 023 Inactive torsemide 20 mg tablet RxNorm: 040104 Take 1 Tablet(s) Oral BID 09/09/19 024 Inactive d/c once daily dosing carvedilol 25 mg tablet RxNorm: 367058 Take 1 Tablet(s) Oral QD 08/25/19 23 024 Inactive pregabalin 150 mg capsule RxNorm: 442545 1 Capsule(s) Oral HS at bed time 08/18/19 023 Inactive pregabalin 100 mg capsule RxNorm: 927244 1 Capsule(s) Oral QAM every morning 08/18/19 023 Inactive carvedilol 25 mg tablet RxNorm: 963306 1 Tablet(s) Oral QD 07/28/19 023 Inactive lisinopril 20 mg tablet RxNorm: 884599 Give 1 Tablet(s) Oral QD 07/28/19 23 023 Inactive Lyrica 150 mg capsule RxNorm: 808737 Take 1 Capsule(s) Oral QHS every night at bedtime 07/19/19 023 Inactive d/c 100mg dose Diflucan 150 mg tablet RxNorm: 434227 Take 1 Tablet(s) Oral QD repeat on day 3 and 6 07/19/19 23 023 Inactive pregabalin 100 mg capsule RxNorm: 339265 Take 1 Capsule(s) Oral QAM every morning 07/19/19 23 023 Inactive gatifloxacin 0.5 % eye drops RxNorm: 331512 Instill 1 Drop(s) as directed TID Instill 1 drop in to affected eye(s) starting 1 day prior to surgery and continue until gone (do not exceed 4 weeks). 07/13/19 23 023 Inactive carvedilol 25 mg tablet RxNorm: 269151 2 Tablet(s) Oral BID 07/13/19 023 Inactive Humulin R Regular U-100 Insulin 100 unit/mL injection solution RxNorm: 696607 85 Unit(s) Injection TID 07/13/19 23 023 Inactive ketorolac 0.5 % eye drops RxNorm: 522300 Instill 1 Drop(s) as directed QID Instill 1 drop into affected eye(s) 4 times daily starting 1 day prior to surgery and continue until gone (do not exceed 4 weeks). 07/13/19 023 Inactive Diflucan 150 mg tablet RxNorm: 573218 Take 1 Tablet(s) Oral QD repeat on day 3 and 6 06/30/19 23 023 Inactive Accu-Chek Guide test strips RxNorm: Use 1 Test Strip QID Use 1 test strip to monitor blood glucose 4 times daily and as needed. Dx:E11.42. 06/23/19 23 023 Inactive ok to substitute with any covered alternative test strip dextromethorphan-gu aifenesin 10 mg-100 mg/5 mL oral liquid RxNorm: 856207 Take 10 Milliliter(s) Oral every 4 hours as needed for cough 06/19/19 23 023 Inactive dextromethorphan-gu aifenesin 10 mg-100 mg/5 mL oral liquid RxNorm: 697283 Take 10 Milliliter(s) Oral every 4 hours as needed for cough 06/19/19 23 023 Inactive Lyrica 150 mg capsule RxNorm: 368480 Take 1 Capsule(s) Oral QHS every night at bedtime 06/18/19 23 023 Inactive d/c 100mg dose aripiprazole 15 mg tablet RxNorm: 814355 1/2 TAB (7.5MG) ORALLY DAILY (DX:MAJOR DEPRESSIVE DISORDER) 06/05/19 023 Inactive pregabalin 100 mg capsule RxNorm: 922755 1 Capsule(s) Oral QAM every morning 06/02/19 023 Inactive Banophen 50 mg capsule RxNorm: 1665231 Take 1 Capsule(s) Oral Q6H every 6 hours as needed 05/19/19 No Stop Date Active Novolog Flexpen U-100 Insulin aspart 100 unit/mL (3 mL) subcutaneous RxNorm: 5466061 Inject 10 Unit(s) Subcutaneous QHS every night at bedtime with nighttime snack 04/08/20 022 Inactive Novolog Flexpen U-100 Insulin aspart 100 unit/mL (3 mL) subcutaneous RxNorm: 9434767 Inject 42 Unit(s) Subcutaneous TID in addition to sliding scale 04/08/20 022 Inactive d/c 36u albuterol sulfate HFA 90 mcg/actuation aerosol inhaler RxNorm: 7129703 Take 2 Puff(s) Inhalation Q4H every four hours as needed as needed for SOB, cough, or wheezing 04/07/20 030 Active Banophen 50 mg capsule RxNorm: 2306148 Take 1 Capsule(s) Oral Q6H every 6 hours as needed 04/06/20 023 Inactive diphenhydramine 50 mg tablet RxNorm: 6643276 Take 1 Tablet(s) Oral Q6H every 6 hours as needed 04/06/20 22 022 Inactive diphenhydramine 50 mg tablet RxNorm: 5794228 1 Tablet(s) Oral Q6H every 6 hours as needed 04/06/20 022 Inactive Abilify 15 mg tablet RxNorm: 317148 1/2 Tablet(s) Oral QD 03/10/20 023 Inactive Shingrix (PF) 50 mcg/0.5 mL intramuscular suspension, kit RxNorm: 7412957 Administer 1/2 Milliliter(s) Intramuscular QD one time shingrix step 2 ( step 1 given 11/04/21) WITH needle - Nursing please administer upon arrival and once administered post a bridge message with date of administration, rod straightener, expiration date, and lot# so we can update [facility] 02/18/20 22 022 Inactive dispense with needle Shingrix (PF) 50 mcg/0.5 mL intramuscular suspension, kit RxNorm: 3116608 Administer 1/2 Milliliter(s) Intramuscular QD one time shingrix step 2 ( step 1 given 11/04/21) WITH needle - Nursing please administer upon arrival and once administered post a bridge message with date of administration, rod straightener, expiration date, and lot# so we can update [facility] 02/18/20 22 022 Inactive dispense with needle polyethylene glycol 3350 17 gram/dose oral powder RxNorm: 713198 Take 17=1 capful Gram(s) Oral QD mix with 4-8oz of liquid 01/08/20 22 023 Inactive take this in addition to BID prn order Lyrica 100 mg capsule RxNorm: 735368 Take 1 Capsule(s) Oral QAM every morning 01/08/20 22 022 Inactive d/c 50mg dose acetaminophen 500 mg tablet RxNorm: 723251 Take 1 Tablet(s) Oral TID 01/08/20 22 022 Inactive d/c PRN order Lyrica 150 mg capsule RxNorm: 646645 Take 1 Capsule(s) Oral QHS every night at bedtime 01/08/20 22 023 Inactive d/c 100mg dose Abilify 5 mg tablet RxNorm: 024189 Take 1 Tablet(s) Oral QD take 1 tab po QD #30 refill 5 dx: MDD 12/12/19 22 022 Inactive Abilify 5 mg tablet RxNorm: 103162 Take 1 Tablet(s) Oral QD take 1 tab po QD #30 refill 5 dx: MDD 12/12/19 22 022 Inactive Novolog Flexpen U-100 Insulin aspart 100 unit/mL (3 mL) subcutaneous RxNorm: 8428673 Inject 42 Unit(s) Subcutaneous TID in addition to sliding scale 12/10/19 22 022 Inactive d/c 36u chlorthalidone 25 mg tablet RxNorm: 311420 Take 1 Tablet(s) Oral QAM every morning 12/10/19 22 023 Inactive pregabalin 50 mg capsule RxNorm: 057876 Take 1 Capsule(s) Oral QAM every morning 11/12/19 22 022 Inactive tetanus-diphtheria toxoids-Td 2 Lf unit-2 Lf unit/0.5 mL IM suspension RxNorm: 139 Take 0.5 Miscellaneous Intramuscular 11/12/19 22 022 Inactive need tdap - nursing to administer upon arrival pregabalin 50 mg capsule RxNorm: 413572 Take 1 Capsule(s) Oral QAM every morning 10/16/19 22 022 Inactive pregabalin 50 mg capsule RxNorm: 990266 Take 1 Capsule(s) Oral QAM every morning 10/16/19 22 022 Inactive pregabalin 50 mg capsule RxNorm: 184886 1 Capsule(s) Oral QAM every morning 10/15/19 22 022 Inactive Shingrix (PF) 50 mcg/0.5 mL intramuscular suspension, kit RxNorm: 9694391 Administer 1/2 Milliliter(s) Intramuscular one time Nursing please administer upon arrival and once administered post a bridge message with date of administration, rod straightener, expiration date, and lot# so we can update [facility]. 10/09/19 22 022 Inactive shingrix step 1 Shingrix (PF) 50 mcg/0.5 mL intramuscular suspension, kit RxNorm: 4885899 Administer 1/2 Milliliter(s) Intramuscular one time Nursing please administer upon arrival and once administered post a bridge message with date of administration, rod straightener, expiration date, and lot# so we can update [facility]. 10/09/19 22 022 Inactive shingrix step 1 cholecalciferol (vitamin D3) 1,250 mcg (50,000 unit) capsule RxNorm: 609989 Take 1 Capsule(s) Oral QW once a [...] aspart 100 unit/mL (3 mL) subcutaneous RxNorm: 1213638 Inject 10 Unit(s) Subcutaneous QHS every night at bedtime with nighttime snack 10/08/19 22 Inactive Shingrix (PF) 50 mcg/0.5 mL intramuscular suspension, kit RxNorm: 8832534 ADMINISTER 2-DOSE SERIES PER CDC GUIDELINES 10/08/19 22 Active Shingrix (PF) 50 mcg/0.5 mL intramuscular suspension, kit RxNorm: 8992106 ADMINISTER 2-DOSE SERIES PER CDC GUIDELINES 10/08/19 22 Inactive Novolog Flexpen U-100 Insulin aspart 100 unit/mL (3 mL) subcutaneous RxNorm: 6742462 Inject 36 Unit(s) Subcutaneous TID in addition to sliding scale 10/08/19 22 Inactive Novofine Autocover 30 gauge x 1/3 needle RxNorm: Use 1 Miscellaneous UD as directed Use 1 needle as directed to administer insulin 5 times a day Dx:E11.42. 10/03/19 Inactive ok to substitute with any covered alternative pen needle benzoyl peroxide 10 % topical cleanser RxNorm: 882740 Apply 1 Application Topical QD apply to face, wash rinse and dry once daily (may change to QOD if drying) 08/19/19 22 022 Inactive (%covered by insurance) #60ml refill 11 dx: acne benzoyl peroxide 10 % topical cleanser RxNorm: 157944 Apply 1 Application Topical QD apply to face, wash rinse and dry once daily (may change to QOD if drying) 08/19/19 22 022 Inactive (%covered by insurance) #60ml refill 11 dx: acne benzoyl peroxide 10 % topical cleanser RxNorm: 899179 Apply 1 Application Topical QD apply to face, wash rinse and dry once daily (may change to QOD if drying) 08/19/19 22 022 Inactive (%covered by insurance) #60ml refill 11 dx: acne Lyrica 50 mg capsule RxNorm: 174719 Take 1 Capsule(s) Oral QAM every morning Take 1 capsule by mouth once daily 08/19/19 22 022 Inactive benzoyl peroxide 10 % topical cleanser RxNorm: 213673 Apply 1 Application Topical QD apply to face, wash rinse and dry once daily (may change to QOD if drying) 08/19/19 22 022 Inactive (%covered by insurance) #60ml refill 11 dx: acne Lyrica 100 mg capsule RxNorm: 952296 Take 1 Capsule(s) Oral QHS every night at bedtime Take 1 capsule by mouth once daily at bedtime 08/19/19 22 022 Inactive Lyrica 100 mg capsule RxNorm: 070342 Take 1 Capsule(s) Oral QHS every night at bedtime Take 1 capsule by mouth once daily at bedtime 08/16/19 22 022 Inactive Lyrica 50 mg capsule RxNorm: 079168 Take 1 Capsule(s) Oral QAM every morning Take 1 capsule by mouth once daily 08/16/19 22 Inactive Levemir FlexTouch U-100 Insulin 100 unit/mL (3 mL) subcutaneous pen RxNorm: 691483 Inject 86 Unit(s) Subcutaneous BID 08/05/19 22 022 Inactive d/c 83units BID Lyrica 100 mg capsule RxNorm: 287927 Take 1 Capsule(s) Oral QHS every night at bedtime Take 1 capsule by mouth once daily at bedtime 07/14/19 022 Inactive Lyrica 50 mg capsule RxNorm: 880502 Take 1 Capsule(s) Oral QAM every morning Take 1 capsule by mouth once daily 07/14/19 22 022 Inactive Levemir FlexTouch U-100 Insulin 100 unit/mL (3 mL) subcutaneous pen RxNorm: 430564 Inject 83 Unit(s) Subcutaneous BID 07/08/19 22 [...] test strip hydralazine 50 mg tablet RxNorm: 521305 Take 1 Tablet(s) Oral QID 05/05/20 21 022 Inactive venlafaxine ER 225 mg tablet,extended release 24 hr RxNorm: 056386 Take 1 Tablet(s) Oral QD 05/05/20 21 021 Inactive venlafaxine ER 225 mg tablet,extended release 24 hr RxNorm: 414872 Take 1 Tablet(s) Oral QD 05/05/20 21 022 Inactive isosorbide mononitrate ER 30 mg tablet,extended release 24 hr RxNorm: 896302 Take 1 Tablet(s) Oral QD 05/05/20 024 Inactive hydralazine 50 mg tablet RxNorm: 861071 Take 1 Tablet(s) Oral QID 05/05/20 21 021 Inactive aspirin 81 mg tablet,delayed release RxNorm: 783690 Take 1 Tablet(s) Oral QD 03/31/20 022 Inactive Vitamin D2 1,250 mcg (50,000 unit) capsule RxNorm: 3796628 Take 1 Capsule(s) Oral QW once a week x 12 weeks 03/31/20 022 Inactive Vitamin D2 1,250 mcg (50,000 unit) capsule RxNorm: 9026598 Take 1 Capsule(s) Oral QW once a week 03/31/20 021 Inactive Zetia 10 mg tablet RxNorm: 976319 Take 1 Tablet(s) Oral QD 03/31/20 024 Inactive Zetia 10 mg tablet RxNorm: 826288 Take 1 Tablet(s) Oral QD 03/31/20 021 Inactive hydralazine 25 mg tablet RxNorm: 804583 Take 1 Tablet(s) Oral QID 03/31/20 21 021 Inactive hydralazine 25 mg tablet RxNorm: 497398 Take 1 Tablet(s) Oral QID 03/31/20 021 Inactive hydralazine 10 mg tablet RxNorm: 655827 Take 1 Tablet(s) Oral QID 03/03/20 021 Inactive cephalexin 500 mg tablet RxNorm: 236449 Take 1 Tablet(s) Oral QID 02/27/20 21 021 Inactive cephalexin 500 mg tablet RxNorm: 071449 Take 1 Tablet(s) Oral QID 02/27/20 021 Inactive lisinopril 40 mg tablet RxNorm: 194940 Take 1 Tablet(s) Oral QD 02/11/20 21 023 Inactive Eliquis 5 mg tablet RxNorm: 6976301 Take 1 Tablet(s) Oral BID 01/05/20 21 022 Inactive Eliquis 5 mg tablet RxNorm: 9763898 Take 2 Tablet(s) Oral QD 01/01/20 21 021 Inactive Lyrica 50 mg capsule RxNorm: 874384 Take 1 Capsule(s) Oral QAM every morning 12/24/19 21 021 Inactive Lyrica 100 mg capsule RxNorm: 510583 Take 1 Capsule(s) Oral QHS every night at bedtime 12/24/19 21 021 Inactive clotrimazole 1 % topical cream RxNorm: 804652 Apply to right foot and toes Topical BID 12/04/19 21 023 Inactive metoprolol succinate ER 200 mg tablet,extended release 24 hr RxNorm: 030784 Take 1 Tablet(s) Oral QD 12/04/19 21 023 Inactive ciprofloxacin 500 mg tablet RxNorm: 635841 Take 1 Tablet(s) Oral QD 11/30/19 21 021 Inactive DX ofloxacin otic drops Accu-Chek Guide test strips RxNorm: USE 1 TO CHECK GLUCOSE 4 TIMES DAILY AND NEEDED 11/15/19 21 023 Inactive Blood Glucose Test strips RxNorm: Use 1 Test Strip QID at PRN 11/05/19 21 023 Inactive E11.42 lisinopril 30 mg tablet RxNorm: 903912 Take 1 Tablet(s) Oral QD 10/30/19 021 Inactive lisinopril 20 mg tablet RxNorm: 142386 Take 1 Tablet(s) Oral QD 10/23/19 021 Inactive lisinopril 20 mg tablet RxNorm: 956987 Take 1 Tablet(s) Oral QD 10/23/19 21 021 Inactive lisinopril 10 mg tablet RxNorm: 614087 Take 1 Tablet(s) Oral QD 10/02/19 21 021 Inactive icosapent ethyl 1 gram capsule RxNorm: 1215323 Take 2 Capsule(s) (2 gm) Oral BID with meals 09/12/19 21 024 Inactive Okay to dispense one 2gm tab if you have that available. icosapent ethyl 1 gram capsule RxNorm: 8399057 Take 2 Capsule(s) Oral BID 09/12/19 021 Inactive Okay to dispense one 2gm tab if you have that available. amlodipine 10 mg tablet RxNorm: 612395 Take 1 Tablet(s) Oral QD 09/04/19 022 Inactive aspirin 81 mg tablet,delayed release RxNorm: 130728 Take 1 Tablet(s) Oral QD 09/04/19 Inactive Levemir FlexTouch U-100 Insulin 100 unit/mL (3 mL) subcutaneous pen RxNorm: 334892 Inject 150 Unit(s) Subcutaneous BID 09/04/19 21 022 Inactive venlafaxine ER 150 mg tablet,extended release 24 hr RxNorm: 873726 Take 1 Tablet(s) Oral QD 09/04/19 021 Inactive clotrimazole-betame thasone 1 %-0.05 % topical cream RxNorm: 308663 Apply to rash on red area on left abdomen/chest Topical BID 08/10/19 Inactive amlodipine 5 mg tablet RxNorm: 518483 Take 1 Tablet(s) Oral QD 07/31/19 021 Inactive cephalexin 500 mg tablet RxNorm: 795624 Take 1 Tablet(s) Oral BID BID - Twice Daily 07/31/19 21 021 Inactive Start 08/01/20 pantoprazole 40 mg tablet,delayed release RxNorm: 595288 Take 1 Tablet(s) Oral QAM every morning 07/08/19 022 Inactive senna 8.6 mg tablet RxNorm: 307584 Take 1 Tablet(s) Oral QD 07/08/19 022 Inactive carbamazepine 200 mg tablet RxNorm: 100849 Take 1 Tablet(s) Oral BID 07/08/19 022 Inactive clopidogrel 75 mg tablet RxNorm: 294443 Take 1 Tablet(s) Oral QD 07/08/19 21 021 Inactive Blood Glucose Test strips RxNorm: Use 1 Test Strip QID at PRN 07/08/19 21 021 Inactive E11.42 Novolog Flexpen U-100 Insulin aspart 100 unit/mL (3 mL) subcutaneous RxNorm: 1687664 Administer per sliding scale Milliliter(s) Subcutaneous TID 151-200: 10 u; 201-250: 20 u; 251-300: 30 u; 301-350: 40 u; 351-400: 50 u. 07/08/19 21 022 Inactive lisinopril 5 mg tablet RxNorm: 345977 Take 1 Tablet(s) Oral QD 07/08/19 021 Inactive Novolog Flexpen U-100 Insulin aspart 100 unit/mL (3 mL) subcutaneous RxNorm: 1528433 Inject 85 Unit(s) Subcutaneous TID 07/08/19 022 Inactive pravastatin 80 mg tablet RxNorm: 552021 Take 1 Tablet(s) Oral QHS every night at bedtime 07/08/19 023 Inactive clotrimazole 1 % topical cream RxNorm: 278170 Apply to bilateral groin areas Topical BID 07/08/19 022 Inactive metoprolol succinate ER 200 mg tablet,extended release 24 hr RxNorm: 685130 Take 1 Tablet(s) Oral QD 07/08/19 021 Inactive Vitamin D3 25 mcg (1,000 unit) tablet RxNorm: 324143 Take 1 Tablet(s) Oral QD 07/08/19 021 Inactive isosorbide dinitrate 30 mg tablet RxNorm: 440849 Take 1 Tablet(s) Oral QD 07/08/19 021 Inactive Levemir FlexTouch U-100 Insulin 100 unit/mL (3 mL) subcutaneous pen RxNorm: 635772 Inject 140 Unit(s) Subcutaneous BID 07/08/19 021 Inactive torsemide 20 mg tablet RxNorm: 693433 Take 1 Tablet(s) Oral QD 07/08/19 21 023 Inactive venlafaxine 75 mg tablet RxNorm: 218484 Take 1 Tablet(s) Oral QD 07/08/19 21 021 Inactive acetaminophen 500 mg tablet RxNorm: 267896 Take 1 Tablet(s) Oral TID as needed for headache 06/18/19 21 021 Inactive acetaminophen 500 mg tablet RxNorm: 543142 Take 1 Tablet(s) Oral TID as needed for headache 06/18/19 21 021 Inactive Lyrica 100 mg capsule RxNorm: 081920 Take 1 Capsule(s) Oral QHS every night at bedtime 06/11/19 21 021 Inactive Lyrica 50 mg capsule RxNorm: 602048 Take 1 Capsule(s) Oral QAM every morning 06/10/19 21 021 Inactive hydrocortisone 2.5 % topical cream RxNorm: 974396 Apply to bilateral groin creases Topical BID 05/15/20 20 021 Inactive clotrimazole 1 % topical cream RxNorm: 990531 Apply to bilateral groin areas Topical BID 05/15/20 20 021 Inactive Lyrica 50 mg capsule RxNorm: 538291 Take 1 Capsule(s) Oral QAM every morning 05/14/20 20 020 Inactive Lyrica 100 mg capsule RxNorm: 448549 Take 1 Capsule(s) Oral QHS every night [...] Inactive Nystop 100,000 unit/gram topical powder RxNorm: 228557 Apply to abd folds, under breasts and L side of groin Topical BID x 14 days, then BID PRN 04/08/20 20 020 Inactive dx: yeast dermatitis Lyrica 100 mg capsule RxNorm: 329637 Take 1 Capsule(s) Oral QHS every night at bedtime 03/13/20 20 Inactive Lyrica 50 mg capsule RxNorm: 743919 Take 1 Capsule(s) Oral QAM every morning 03/13/20 20 Inactive ketoconazole 2 % shampoo RxNorm: 395065 Apply Topical two times a week with showers 03/11/20 20 Inactive cholecalciferol (vitamin D3) 50 mcg (2,000 unit) tablet RxNorm: 352664 Take 1 Tablet(s) Oral QD 03/11/20 20 Inactive Zetia 10 mg tablet RxNorm: 914052 Take 1 Tablet(s) Oral QD 03/07/20 20 021 Inactive Zetia 10 mg tablet RxNorm: 970883 Take 1 Tablet(s) Oral QD 03/07/20 20 Inactive Lyrica 50 mg capsule RxNorm: 722782 Take 1 Capsule(s) Oral QAM every morning 02/15/20 20 Inactive Lyrica 100 mg capsule RxNorm: 943195 Take 1 Capsule(s) Oral QHS every night at bedtime 02/15/20 20 Inactive Lyrica 100 mg capsule RxNorm: 147138 Take 1 Capsule(s) Oral QHS every night at bedtime 02/15/20 20 Inactive Lyrica 50 mg capsule RxNorm: 204851 Take 1 Capsule(s) Oral QAM every morning 02/15/20 20 Inactive metoprolol succinate ER 200 mg tablet,extended release 24 hr RxNorm: 296896 Take 1 Tablet(s) Oral QD 08/12/19 23 Active loperamide 2 mg capsule RxNorm: 710621 Take 1 Capsule(s) Oral QID as needed 06/12/19 22 Active hydralazine 50 mg tablet RxNorm: 174087 Take 1 Tablet(s) Oral QID 08/12/19 23 Active venlafaxine ER 75 mg capsule,extended release 24 hr RxNorm: 209257 Take 3 Capsule(s) Oral QD 06/12/19 22 023 Inactive polyethylene glycol 3350 17 gram/dose oral powder RxNorm: 670906 Take 17=1 capful Gram(s) Oral BID as needed mix with 4-8oz of liquid 06/12/19 22 024 Inactive icosapent ethyl 1 gram capsule RxNorm: 4153618 Take 2 Capsule(s) (2 gm) Oral BID with meals 10/07/19 23 023 Inactive Okay to dispense one 2gm tab if you have that available. Levemir FlexTouch U-100 Insulin 100 unit/mL (3 mL) subcutaneous pen RxNorm: 159252 Inject 80 Unit(s) Subcutaneous BID 07/14/19 23 023 Inactive Novolog Flexpen U-100 Insulin aspart 100 unit/mL (3 mL) subcutaneous RxNorm: 1619044 Insert 30 Unit(s) Subcutaneous TID with meals [...] [facility] WPtel: [address] [id number] [place] Referral Records Received 09/21/2022 Referral: [facility] WPtel: [address] [facility] [address] [id number] [place] Referral Completed 05/28/2021 Referral: General Cardiology [...] attention.??Sister Jyotsna involved in his care cell# [phone]??Guardian: Giulia (tapan met in person 09/01/21), now [...] in 1 year to monitor growth (due )Dr.??Bobbi note from 11.08.2023 at [facility] (follow up 6 months)Colon & Rectal Surgery visit scheduled for 03/08/24 with Matilde Pérez PA-C.?? 02/08/2024
--- OUTSIDE RECORDS SUMMARY | 2024-03-03 14:26 | XMS_ITS | Encounter Summary ---
Author Organization [facility] Address [address] 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 documented as of this encounter Plan of Treatment Upcoming Encounters Date Type Department Care Team (Late st Contact Info) Description 03/08/2024 PRE VISIT [facility] [address] [address] Matilde Pérez PA-C [address] [place] [address] Previsit 03/08/2024 12:00 PM CDT Office Visit [facility] [address] [place] [phone] Reinaldo Beltran PA-C Emergency Physicians [facility] [address] [facility] [address] [place] [address] Matilde Pérez PA-C [address] [place], [place] [address] documented as of this encounter Visit Diagnoses Not on filedocumented in this encounter Care Teams Tool Salvage Worker Relationship Specialty Start Date End Date Services, [facility] Physician [address] [facility] [address] [place], [place] [id number] PCP - General 05/22/21 Prince Tobar MD [address] [place] [address] Cardiovascular Disease 03/26/22 Prince Tobar MD [address] [place] [address] Assigned Heart and Vascular Provider 05/30/22 documented as of this encounter
--- OUTSIDE RECORDS SUMMARY | 2024-03-03 14:26 | XMS_ITS | Clinical Summary ---
Author Organization [facility] Address [address] [place] [address] Phone Care Team Providers Care Biomedical Field Service Engineer Name Role Phone Mellisa Shirley PA-C Primary Care Provider [phone] Allergies Active Allergy Reactions Criticality Noted Date Comments Lisinopril 01/29/2012 Other reaction(s): Hyperkalemia Metformin 12/23/2015 Other reaction(s): Chest Pain Back pain, arm pain Medications polyethylene glycol (GLYCOLAX) 17 GM/SCOOP powder Take by mouth Active insulin aspart (NovoLOG) 100 UNIT/ML injection Inject 30 Units under the skin in the morning and 30 Units at noon and 30 Units in the evening. 2 Active insulin detemir (LEVEMIR) 100 UNIT/ML injection Inject 80 Units under the skin in the morning and 80 Units in the evening. 2 Active cholecalciferol (VITAMIN D-3) 1.25 MG (00338 UT) capsule Take 1,250 mcg by mouth [...] morning and 50 mg in the evening. 3 Active carBAMazepine (TEGretol) 200 MG tablet Take [...] 100 mg by mouth at bed time 2 Active pregabalin (LYRICA) 50 MG capsule Take 50 mg by mouth every morning 2 Active pravastatin (PRAVACHOL) 80 MG tablet Take [...] Recorded Sex Assigned at Not on file Legal Sex Male 4:09 PM EDT Gender Identity Not on file Sexual Orientation [...] on patient's age to complete this topic Insurance MEDICAID [place] MEDICARE Care Teams Biomedical Field Service Engineer Relationship Specialty Start Date End Date Mellisa Shirley PA-C PCP - General Physician Immunology Specialist 08/31/22
--- OUTSIDE RECORDS SUMMARY | 2024-03-03 14:26 | XMS_ITS | Clinical Summary ---
Author Organization [facility] Address [place], [place] [address] Care Team Providers Care Adult Basic Education Teacher Name Role Phone Alan Lopez MD Unavailable [...] type 2 diabetes mellitus (HC),Chronic edema JOBST #[id number] LRG FULL CALF KNEE BLACK 20-30 COMPRESSION [...] MD 0 04/01/2020 Active Insulin Safety [place], Disp, (NOVOFINE AUTOCOVER) 30 gauge x /3Indications:Cecelia [...] at 10 am and no showed. RN Commission Auditor, Juanita Yoo, notified and she will attempt [...] No, referral made to Advance Care Plan Transcript Evaluator. Patient has identified Specific Treatment Preferences: No Sophia Méndez RN .................... 07/06/2011 2:30 PM] Specific limits to treatment preferences NOT identified: ASSUME FULL TREATMENT. Assessment & Plan (05/25/2012 12:51 PM [place] ANALYST): Advance Care Planning: Disease-specific Session Leonid Leahy is a [facility] patient. His PCP is Leandra Limon at [facility]. Advance care planning discussions were completed with Leonid. He identified his sister, Brittany Suggs, as his healthcare agent. Brittany was not present for ACP session. Understanding of Illness and Disease [place]: Leonid identifies his medical condition as what [...] to live well: Daily visit to local [place] for a pop and to visit and catch up in the news with locals. Leonid obed with serious challenges in his life: Support of his sister, only a phone call away. Helps manage [facility] services. Leonid identifies the following [...] and primary care provider. Hard Choices for [place] People booklet was sent to Leonid and his health care agent for review. Leonid requested all information be mailed to his sister and news writer to place call to sister to explain process. Leonid identified the following concerns during his advance care planning session: needing assistance at home to ensure he is managing his medications and treatments to keep going as is and stabilizing. Is followed by Clinic Con[facility]or Mechanic for needed services. Questions identified for his primary care provider: none Documents addressed during this advance care planning session: Health Care Directive completed and scanned into medical record. Statement of Treatment Preferences for advanced illness completed and scanned into the medical record. Recommendations/Plan: Leonid to review Advance Care Plan with Leonid's healthcare agent. Community Support Associate will be contacting Leonid's [facility] to explain services rendered, Leonid would benefit from: Home Care and/or Hospice when / if appropriate. [facility] services involved, [facility] supports coordination of medical asistance. Care [...] 2:27 PM Sophia Méndez RN RN [facility] [phone] Vitamin D deficiency 01/06/2011 011 Neuropathy 09/25/2010 [...] 176.9 kg (390 lb) 07/14/2022 6:10 PM [place] ANALYST Height 167.6 cm (5' 6) 07/14/2022 6:10 PM [place] ANALYST Body Mass Index 62.95 07/14/2022 6:10 PM [place] ANALYST Plan of Treatment Health Maintenance Due Date [...] Kay García Medical Devices Implanted Type Area Scrap Iron Cutter Device Identifier Shelf Expiration Date Model / Serial / Lot Iol [place] +20 Tecnis Zcb00 - [id number] Implanted:Qty: 1 on 07/15/2022 by Tanner Fuentes MD at [facility] Left: Eye [employer] 06/24/2025 ZCB00 20.0 / [id number] / Iol [place] +20 Tecnis Zcb00 - [id number] Implanted:Qty: 1 on 08/19/2022 by Tanner Fuentes MD at [facility] Right: Eye [employer] 06/24/2025 ZCB00 20.0 / [id number] / Procedures Procedure Name Priority Date/Time Associated Diagnosis Comments LIPID PANEL Routine 03/13/2019 2:31 PM CDT Essential hypertriglyceridemia from Last 3 Months or Most Recently Relevant to Health Maintenance Results * (ABNORMAL) LIPID PANEL (03/13/2019 2:31 PM CDT) [facility] CHOLESTEROL,TOTAL 193 100 - 199 mg/dL 03/13/2019 9:[address] [facility] LABOR[facility] TRIGLYCERIDES 715(H) <150 mg/dL 03/13/2019 9:[address] [facility] HDL CHOLESTEROL 29(L) >40 mg/dL 9 9:25 PM CDT [facility] NON-HDL CHOLESTEROL 164(H) <145 mg/dl 03/13/2019 9:25 PM CDT [facility] CHOL/HDL RATIO 6.66(H) <4.50 03/13/2019 9:25 PM CDT [facility] LDL CHOLESTEROL 9 9:25 PM CDT [facility] Comment:Invalid LDL when Tri g >400. PROVIDER ORDERED STATUS RANDOM 03/13/2019 9:[address] [facility] Blood BLOOD SPECIMEN / Unknown Venipuncture / Unknown 03/13/2019 2:31 PM CDT 03/13/2019 2:31 PM CDT Suellen Sosa MD [facility] [address] [place] [address], from Last 3 Months or Most Recently Relevant to Health Maintenance Advance Directives Documents on File Type Date Recorded Patient Health Program Manager Eduardo smiley POL 09/26/2014 3:45 PM AH [...] 9:30 PM 03/19/2009 6:17 PM Care Teams Adult Basic Education Teacher Relationship Specialty Start Date End Date Pcp, No . PCP - General 07/15/22 Alan Lopez MD Internal Medicine Internal Medicine 11/20/10 Nishant Watson MD [address] [place] [address] Endocrinology 08/15/13
--- OUTSIDE RECORDS SUMMARY | 2024-03-03 14:26 | XMS_ITS | Referral Summary ---
Author Organization [facility] Address [address] [place] [address] Care Team Providers Care Corporate Sales Representative Name Role Phone Services, [facility] [address] Physician Primary Care Provi sadia Prince Tobar MD Unavailable Prince Tobar MD Unavailable Matilde Pérez PA-C Unavailable [phone] Encounters Date Type Department Care Team Description 12/28/2023 6:08 PM CDT - 12/29/2023 12:59 AM T Emergency [facility] Emergency Dept [address] [place] [address] Agustin Cesar MD Anal fissure; External hemorrhoids [...] daily Active cholecalciferol (VITAMIN D3) 1250 mcg (28330 units) capsule Take 1,250 mcg by mouth every 7 days on Wednesdays. 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 Last Filed Vital Signs Vital Sign Reading [...] st Contact Info) Description 03/08/2024 PRE VISIT [facility] [address] [place] [address] Matilde Pérez PA-C [address] [place] [address] Previsit 03/08/2024 12:00 PM CDT Office Visit [facility] [address] [place] [address] Reinaldo Beltran PA-C Emergency Physicians [facility] [address] [place] [phone] Matilde Pérez PA-C [address] [place] [address] Procedures Procedure Name Priority Date/Time Associated Diagnosis [...] without heart failure Atherosclerotic heart disease of tribal coronary artery without angina pectoris Body mass index (BMI) 60.0-69.9, adult (H) Chronic kidney disease, unspecified from Last 3 Months or Most Recently Relevant to Health Maintenance Results * (ABNORMAL) CBC with platelets and differential (12/28/2023 6:41 PM CDT) [facility] WBC Count 5.9 4.0 - 11.0 [...] [facility] Acute Care Lab [address] Lab (1st floor, no room number) [place] [address] [place] * Adult Type and Screen (12/28/2023 6:41 PM CDT) ABO/RH(D) A POS 12/28/2023 6:28 PM CDT [facility] BLOOD BANK Antibody Screen Negative Negative 12/28/2023 6:28 PM CDT RH BLOOD BANK SPECIMEN EXPIRATION DATE [id number] 12/28/2023 6:28 PM CDT RH BLOOD BANK Blood STRUCTURE OF RIGHT UPPER LIMB / Unknown Venipuncture / Unknown 12/28/2023 6:41 PM CDT 12/28/2023 6:46 PM CDT Agustin Cesar MD LAB - BLOOD BAN K TEST ORDER Performing Organization Address City/[facility]/ZIP Co de Phone Number RH BLOOD BANK [address] [place] [address] * INR (12/28/2023 6:41 PM CDT) INR 1.01 0.85 - 1.15 12/28/2023 7:00 PM CDT [facility] LABORATORY Blood STRUCTURE OF RIGHT UPPER LIMB / Unknown Venipuncture / Unknown 12/28/2023 6:41 PM CDT 12/28/2023 6:46 PM CDT Agustin Cesar MD LAB - BLOOD ORD ERABLES LABORATORY [facility] Acute Care Lab [address] Lab (1st floor, no room number) [place] [phone] [place] [address] * Partial thromboplastin time (12/28/2023 6:41 PM CDT) aPTT 28 22 - 38 Seconds 12/28/2023 7:00 PM CDT LABORATORY Blood STRUCTURE OF RIGHT UPPER LIMB / Unknown Venipuncture / Unknown 12/28/2023 6:41 PM CDT 12/28/2023 6:46 PM CDT Agustin Cesar MD LAB - BLOOD ORD ERABLES Performing Organization Address [facility]/ZIP Co de Phone Number LABORATORY [facility] Acute Care Lab [address] Lab (1st floor, no room number) [address] * (ABNORMAL) Comprehensive metabolic panel (12/28/2023 [...] Health Center Acute Care Lab [address] [facility] Lab (1st floor, no room number) [place] [address], [facility] * (ABNORMAL) Hemoglobin A1c [...] [address] Lab (1st floor, no room number) [place] [address], [facility] from Last 3 Months or Most Recently Relevant to Health Maintenance Advance Directives For more information, please contact: [phone] Documents on File Type Date Recorded Patient Associate Professor Of Law Expl anation Advance Directives and Living Will [...] patie nt/ legal decision maker Care Teams Corporate Sales Representative Relationship Specialty Start Date End Date Services, [facility] [address] Physician [address] [facility], [address] [address] PCP - General 05/22/21 Prince Tobar MD [address] [place] [address] Cardiovascular Disease 03/26/22 Prince Tobar MD [address] [place] [id number] Assigned Heart and Vascular Provider 05/30/22 Matilde Pérez PA-C [address] [place] [address] Physician Regional Sales Engineer Physician Regional Sales Engineer - Surgical 12/30/23
--- OUTSIDE RECORDS SUMMARY | 2024-03-03 14:26 | XMS_ITS | Clinical Summary ---
Author Organization [facility] Address [address] [place] [address] Care Team Providers Care Strain Technician Name Role Phone Services, [facility] Physician Primary Care Provi sadia Prince Tobar [...] daily Active cholecalciferol (VITAMIN D3) 1250 mcg (67206 units) capsule Take 1,250 mcg by mouth every 7 days on Wednesdays. Active venlafaxine (EFFEXOR-XR) 75 MG 24 hr capsule Take 225 mg by mouth daily Active hydrALAZINE (APRESOLINE) 50 MG tablet Take 50 mg by mouth 4 times daily Active polyethylene glycol (MIRALAX) 17 GM/Dose powder Take 17 g by mouth daily Active nystatin (MYCOSTATIN) 610957 UNIT/GM external powder Apply topically 2 times [...] CDT - 12/29/2023 12:[address] 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 Last Filed Vital Signs Vital Sign [...] st Contact Info) Description 03/08/2024 PRE VISIT [facility] [address] [place] [address] Matilde Pérez PA-C [address] [place] [address] Previsit 03/08/2024 12:00 PM CDT Office Visit [facility] [address] 4th [place] [address] Reinaldo Beltran PA-C [facility] [address] [place] [phone] Matilde Pérez PA-C [address] [place] [address] Health Maintenance Due Date Last Done Comments [...] without heart failure Atherosclerotic heart disease of [place] coronary artery without angina pectoris Body mass index (BMI) 60.0-69.9, adult (H) Chronic kidney disease, unspecified from Last 3 Months or Most Recently Relevant to Health Maintenance Results * (ABNORMAL) CBC with platelets and differential (12/28/2023 6:41 PM CDT) Pathologist [facility] WBC Count 5.9 4.0 - 11.0 10e3/uL [...] [facility] Acute Care Lab [address] Lab (1st floor, no room number) [place] [address] * Adult Type and Screen (12/28/2023 6:41 PM CDT) ABO/RH(D) A POS 12/28/2023 6:28 PM CDT RH BLOOD BANK Antibody Screen Negative Negative 12/28/2023 6:28 PM CDT RH BLOOD BANK SPECIMEN EXPIRATION DATE [id number] 12/28/2023 6:28 PM CDT RH BLOOD BANK Blood STRUCTURE OF RIGHT UPPER LIMB / Unknown Venipuncture / Unknown 12/28/2023 6:41 PM CDT 12/28/2023 6:46 PM CDT Agustin Cesar MD LAB - BLOOD BAN K TEST ORDER Performing Organization Address [facility]/ZIP Co de Phone Number BLOOD BANK [address] [place] [address] * INR (12/28/2023 6:41 PM CDT) INR 1.01 0.85 - 1.15 12/28/2023 7:00 PM CDT [facility] LABORATORY Blood STRUCTURE OF RIGHT UPPER LIMB / Unknown Venipuncture / Unknown 12/28/2023 6:41 PM CDT 12/28/2023 6:46 PM CDT Agustin Cesar MD LAB - BLOOD ORD ERABLES RH LABORATORY [facility] Acute Care Lab [address] Lab (1st floor, no room number) [place] [phone] * Partial thromboplastin time (12/28/2023 6:41 PM CDT) aPTT 28 22 - 38 Seconds 12/28/2023 7:00 PM CDT LABORATORY Blood STRUCTURE OF RIGHT UPPER LIMB / Unknown Venipuncture / Unknown 12/28/2023 6:41 PM CDT 12/28/2023 6:46 PM CDT Agustin Cesar MD LAB - BLOOD ORD ERABLES LABORATORY [facility] Acute Care Lab [address] Lab (1st floor, no room number) [place] [phone] * (ABNORMAL) Comprehensive metabolic panel (12/28/2023 [...] Medical Center Acute Care Lab [address] [facility] Lab (1st floor, no room number) [place] [address], [facility] * (ABNORMAL) Hemoglobin A1c (10/15/2023 3:13 PM CDT) Hemoglobin A1C 10.8(H) <5.7 % 10/15/2023 4:57 PM CDT [facility] LABORATORY Comment: Normal <5.7% Prediabetes 5.7-6.4% ?? Diabetes 6.5% or higher Note: Adopted from ADA consensus guidelines. Blood BLOOD SPECIMEN / Unknown Client Draw / Unknown 10/15/2023 3:13 PM CDT 10/15/2023 4:25 PM CDT Harrison Munson LAB - BLOOD ORDERABL ES LABORATORY [facility] Acute Care Lab [address] Lab (1st floor, no room number) [place] [address], [facility] from Last 3 Months or Most Recently Relevant to Health Maintenance Advance Directives For more information, please contact: [phone] Documents on File Type Date Recorded Patient Recreation Therapist Expl anation Advance Directives and Living Will [...] yissel nt/ legal decision maker Care Teams Strain Technician Relationship Specialty Start Date End Date Services, [facility] Physician [address] [place] [address], [address] [address] PCP - General 05/22/21 Prince Tobar MD [address] [place] [address] [id number] Cardiovascular Disease 03/26/22 Prince Tobar MD [address] [place] [address] [phone] Assigned Heart and Vascular Provider 05/30/22 Matilde Pérez PA-C [address] [place] [phone] Physician Button Tufting Machine Operator Physician Button Tufting Machine Operator - Surgical 12/30/23
--- OUTSIDE RECORDS SUMMARY | 2024-03-03 14:26 | XMS_ITS | Encounter Summary ---
Author Organization [facility] Address [address] [place] [address] Care Team Providers Care Automatic Spooler Operator Name Role Phone Services, [facility] Physician Primary Care Provi sadia Prince Tobar MD Unavailable [phone] Prince Tobar MD Unavailable [phone] Reason for Referral * Consultation (Priority: 1-2 Weeks) - Pending Review Specialty Diagnoses / Procedures Referred By Contjohnny dalal Referred To Contact Colon and Rectal Surgery Diagnoses Anal fissure External hemorrhoids Reinaldo Beltran PA-C [facility] [address] [place] [address] Referral ID Status Reason Start Date Expiration Date V isits Requested Visits Authorized [id number] Pending Review 12/28/2023 12/27/2024 1 1 Question Answer Reason for Referral: Anal Fissure Special Concerns: Other My Clinical Question Is: Anal fissure, taking Apixaban Scheduling Instructions: [employer] will call you to coordinate care as prescribed your provider. If you don? t hear from a sales representative printing within 2 business days, please call . Comments Please be aware that coverage of these services is subject to the terms and limitations of your health insurance plan. Call member services at your health plan with any benefit or coverage questions. [employer] will call you to coordinate care as prescribed your provider. If you don? t hear from a sales representative printing within 2 business days, please call . Reason for Visit * Reason Comments Rectal Bleeding Encounter Details Date Type Department Care Team (Late st Contact Info) Description 12/28/2023 6:08 PM CDT - 12/29/2023 12:[address] 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 The bleeding you noted on [...] mouth daily cholecalciferol (VITAMIN D3) 1250 mcg (58412 units) capsule Take 1,250 mcg by mouth [...] 7 days 4 g 12/28/2023 nystatin (MYCOSTATIN) 661174 UNIT/GM external powder Apply topically 2 times [...] MG tablet cholecalciferol (VITAMIN D3) 1250 mcg (36566 units) capsule clotrimazole (LOTRIMIN) 1 % external [...] 200 MG 24 hr tablet nystatin (MYCOSTATIN) 832308 UNIT/GM external powder pantoprazole (PROTONIX) 40 MG [...] POS Antibody Screen Negative SPECIMEN EXPIRATION DATE [id number] ABO/RH TYPE AND SCREEN Emergency Department Course [...] 1. Anal fissure K60.2 Adult Colorectal Surgery Sea Foam Kiss Maker Referral 2. External hemorrhoids K64.4 Adult Colorectal Surgery Sea Fo[employer] Kiss Maker Referral Discharge Medications: New Prescriptions HYDROCORTISONE, PERIANAL, [...] yesterday, he went to a clinic in [place], he is unsure of what was done [...] MG tablet cholecalciferol (VITAMIN D3) 1250 mcg (28002 units) capsule clotrimazole (LOTRIMIN) 1 % external [...] 200 MG 24 hr tablet nystatin (MYCOSTATIN) 193564 UNIT/GM external powder pantoprazole (PROTONIX) 40 MG [...] POS Antibody Screen Negative SPECIMEN EXPIRATION DATE [id number] ABO/RH TYPE AND SCREEN Imaging No orders to display Independent Interpretation None ED Course Medications Administered Medications - No data to display Procedures Procedures Discussion of Management Staffed with Dr. Cesar ED Course ED Course as of 12/28/231936Dec 28, [id number] I evaluated and examined the patient 1902 Rectal exam with RN at bedside Additional Documentation None Medical Decision Making / Diagnosis [facility] Diagnoses: None MIPS None [facility] Leonid Leahy is a 63 year [...] 1. Anal fissure K60.2 Adult Colorectal Surgery Sea Fo[employer] Kiss Maker Referral 2. External hemorrhoids K64.4 Adult Colorectal Surgery Sea Foam Kiss Maker Referral Discharge Medications New Prescriptions HYDROCORTISONE, PERIANAL, [...] Pt comes from assisted living facility in [place]. * Tamiko Monzon RN - 12/28/2023 6:08 PM CDT Bed: ED01 Expected date: Expected time: Means of arrival: Comments: [id number] documented in this encounter Plan of Treatment Upcoming Encounters Date Type Department Care Team (Late st Contact Info) Description 03/08/2024 PRE VISIT [facility] [address] [address] Matilde Pérez PA-C [address] [place] [address] Previsit 03/08/2024 12:00 PM CDT Office Visit [facility] [address] [phone] Reinaldo Beltran PA-C [facility] [address] [place] [phone] Matilde Pérez PA-C [address] [place] [address] Scheduled Referrals Name Type Priority Associated Diagnoses Orde r Schedule Adult Colorectal Surgery Sea Foam Kiss Maker Referral Referral Priority: 1-2 Weeks Anal fissure [...] CDT RH BLOOD BANK SPECIMEN EXPIRATION DATE [id number] 12/28/2023 6:28 PM CDT RH BLOOD BANK Blood STRUCTURE OF RIGHT UPPER LIMB / Unknown Venipuncture / Unknown 12/28/2023 6:41 PM CDT 12/28/2023 6:46 PM CDT Agustin Cesar MD LAB - BLOOD BAN K TEST ORDER BLOOD BANK [address] [address], [facility] * (ABNORMAL) CBC with [...] MD LAB - BLOOD ORD ERABLES LABORATORY [facility] Acute Care Lab [address] [facility] Lab (1st floor, no room number) [place] [address], [facility] * (ABNORMAL) Comprehensive metabolic [...] MD LAB - BLOOD ORD ERABLES LABORATORY [facility] Acute Care Lab [address] [facility] Lab (1st floor, no room number) [place] [address], [facility] * Partial thromboplastin time (12/28/2023 6:41 PM CDT) aPTT 28 22 - 38 Seconds 12/28/2023 7:00 PM CDT [facility] LABORATORY Blood STRUCTURE OF RIGHT UPPER LIMB / Unknown Venipuncture / Unknown 12/28/2023 6:41 PM CDT 12/28/2023 6:46 PM CDT Agustin Cesar MD LAB - BLOOD ORD ERABLES [facility] [address] Lab (1st floor, no room number) [place] [address] * INR (12/28/2023 6:41 PM CDT) INR 1.01 0.85 - 1.15 12/28/2023 7:00 PM CDT LABORATORY Blood STRUCTURE OF RIGHT UPPER LIMB / Unknown Venipuncture / Unknown 12/28/2023 6:41 PM CDT 12/28/2023 6:46 PM CDT Agustin Cesar MD LAB - BLOOD ORD ASHISH Performing Organization Address City/[facility]/ZIP Co de Phone Number [facility] [address] Lab (1st floor, no room number) [place] [address] documented in this encounter Visit Diagnoses Diagnosis Anal fissure External hemorrhoids External hemorrhoids without mention of complication documented in this encounter Care Teams Automatic Spooler Operator Relationship Specialty Start Date End Date Services, [facility] Physician [address] [place] [address] PCP - General 05/22/21 Prince Tobar MD [address] [place] [address] Cardiovascular Disease 03/26/22 Prince Tobar MD [address] [place] [address] Assigned Heart and Vascular Provider 05/30/22 documented as of this encounter
[2024-03-03] MEDS: INSULIN INF 100 UNIT/100 ML 100 UNIT/100 ML BAG 6.5 UNIT IVPB (14:30)
--- NOTE | 2024-03-03 15:01 | ED.NURSE ---
Attempted to collect urine with specimen cup between legs however when patient alerted me that he had void, no urine had been collected in cup but brief was saturated.
--- NOTE | 2024-03-03 18:01 | ED.NURSE ---
MD report made for vulnerable adult as patient reports no access to insulin for one week; report [id number]. Voice mail left for guardian with information as well.
[2024-03-03 18:33] LABS: Chloride* 91 mmol/L (96-114); Potassium* 3.8 mmol/L (3.6-5.1); Sodium* 130 mmol/L (135-149)
[2024-03-03 18:36] LABS: Anion Gap 10 mEq/L (7-15); Carbon Dioxide* 29 mmol/L (20-32); Creatinine* 1.4 mg/dL (0.5-1.5); Estimated Glomerular Filt Rate 56 ml/min
[2024-03-03 18:37] LABS: Blood Urea Nitrogen* 32 mg/dL (7-30); Calcium* 8.5 mg/dL (8.4-10.6)
[2024-03-03 18:43] LABS: Glucose* 395 mg/dL (60-115)
[2024-03-03 19:14] LABS: Appearance Urine Clear (Clear); Bilirubin Urine 1+ (Negative); Blood Urine Negative (Negative); Color Urine Yellow (Yellow); Glucose Urine 3+ (Negative); Ketones Urine Trace (Negative); Leukocyte Esterase Urine Negative (Negative); Nitrite Urine Negative (Negative); Protein Urine Negative (Negative); Urobilinogen Urine 0.2 (0.2-1.0)
--- NOTE | 2024-03-03 19:15 | ED.NURSE ---
Report called to RN of [facility] and told of discharge and instructions.
[2024-03-03 19:44] LABS: RBC Urine 0-2 (0-2); WBC Urine 0-2 (0-5)
== END 2024-03-03 19:21 | disposition other institution (70) ==
PROVIDERS: Emergency Provider Family Medicine
DX: E11.65 Type 2 diabetes mellitus with hyperglycemia (principal); Z79.4 Long term (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 insulin
CPT/HCPCS: 36415; 71045; 80048; 80053; 81001; 82947; 82962; 83605; 84484; 85025; 86140; 87631; 87651; 93005; 96361; 96374; 99284; 99285; J1815; J3590; J7030

== ENCOUNTER 2024-03-03 19:10 | Outpatient (CLI) | payer MEDICARE, MEDICAID, SELFPAY ==
--- OUTSIDE RECORDS SUMMARY | 2024-03-17 23:55 | XMS_ITS | Clinical Summary ---
Author Organization [facility] Address [address] [facility] [place] [address] Care Team Providers Care Behavior Specialist Name Role Phone Services, [facility] Physician Primary Care Provi sadia Prince Tobar MD Unavailable Prince Tobar MD Unavailable Matilde Pérez PA-C Unavailable Torie Jimenez APRN PICK UP WORKER Unavaila ble Reinaldo Beltran PA-C Unavailable Allergies Active Allergy Reactions Criticality [...] daily Active cholecalciferol (VITAMIN D3) 1250 mcg (89304 units) capsule Take 1,250 mcg by mouth every 7 days on Wednesdays. Active venlafaxine (EFFEXOR-XR) 75 MG 24 hr capsule Take 225 mg by mouth daily Active hydrALAZINE (APRESOLINE) 50 MG tablet Take 50 mg by mouth 4 times daily Active polyethylene glycol (MIRALAX) 17 GM/Dose powder Take 17 g by mouth daily Active nystatin (MYCOSTATIN) 165553 UNIT/GM external powder Apply topically 2 times [...] 7 days 4 g 12/28/19 24 Active insulin glargine (LANTUS PEN) 100 UNIT/ML pen Inject 30 Units subcutaneously 2 times daily. 18 mL 03/08/20 24 024 Active insulin reg HIGH CONC (HUMULIN R U-500 KWIKPEN) 500 UNIT/ML PEN soln Inject 100 Units subcutaneously 3 times daily (before meals). 18 mL 03/08/20 24 024 Active cephALEXin (KEFLEX) 500 MG capsule Take 1 capsule (500 mg) by mouth 2 times daily for 7 days. 14 capsule 03/08/20 24 Active Problems Problem Noted Date Diagnosed Date Elevated troponin 12/16/2022 Chest pain, unspecified type 12/16/2022 Diabetes mellitus, type 2 05/26/2022 Morbid obesity 05/26/2022 Abdominal wall cellulitis 05/17/2021 Sepsis, due to unspecified o rganism, unspecified whether acute organ dysfunction present 05/17/2021 Persistent headaches 03/01/2013 Epilepsy 03/01/2013 Encounters Date Type Department Care Team Description 03/08/2024 PRE VISIT [facility] [address] [address] Matilde Pérez PA-C Previsit 03/07/2024 5:35 PM CDT - 03/08/2024 8:21 PM CDT Emergency [facility] Emergency Dept [address] [place] [address] Sandra Monroy MD [place], Samuel, MD McDonald, Lindsey E, Hyperglycemia (Primary Dx); Urinary tract infection with hematuria, site unspecified Discharge Disposition: Home or Self Care 03/07/2024 Travel 12/28/2023 6:08 PM CDT - 12/29/2023 12:59 AM CDT Emergency [facility] Emergency Dept [address] [place] [address] Agustin Cesar MD Anal fissure; External hemorrhoids Discharge Disposition: Home or Self Care 12/28/2023 Travel from Last 3 Months Immunizations Name Administration Dates Next Due COVID-19 MONOVALENT 12+ (Pfizer) 06/25/2020,05/17 [id number] Novel Flu 05/07/2009 Hepatitis B, Adult 02/16/2014,10/12/2013, [...] on file Legal Sex 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 Gender Identity Not on file Sexual Orientation Choose not to disclose 2021 8:14 AM RESEARCH AND DEVELOPMENT TECHNICIAN Last Filed Vital Signs Vital Sign Reading [...] 10/15/2023, 08/0 06/2022, 05/17/2021 COVID-19 Vaccine ( - 2024-25 season) 2024 06/02/2023, 04/03/2022, 06/18/2021, Additional history exists INFLUENZA VACCINE (#1) 2024 , 04/03/2022, 05/29/2021, Additional history exists BMP 03/07/2025 [...] BEAKER POCT Final Re sult RH LABORATORY [facility] Acute Care Lab [address] [facility] Lab (1st floor, no room number) [place] [address], [facility] * (ABNORMAL) UA with [...] mg/dL 03/08/2024 8:53 AM CDT LABORATORY Specific [place] Urine 1.023 1.003 - 1.035 03/08/2024 8:53 [...] [facility] [address] [facility] Lab (1st floor, no room number) [place] [address] * (ABNORMAL) Basic metabolic [...] - BLOOD ORDERABLES Fin al Result LABORATORY [facility] Acute Care Lab [address] [facility] Lab (1st floor, no room number) [place] [address], [facility] * (ABNORMAL) Blood gas [...] Fin al Result Performing Organization Address City/[facility]/ZIP Co de Phone Number [facility] Care Lab [address] Lab (1st floor, no room number) [place] [address] * Extra Purple Top Tube (03/07/2024 7:02 PM CDT) Hold Specimen [facility] 03/07/2024 8:07 PM CDT [facility] LABORATORY Blood STRUCTURE OF RIGHT UPPER LIMB / Unknown Venipuncture / Unknown 03/07/2024 7:02 PM CDT 03/07/2024 7:07 PM CDT us Sandra Monroy MD LAB - BLOOD ORDERABLES Fin al Result [facility] Acute Care Lab [address] Lab (1st floor, no room number) [place] [address] * Extra Red Top Tube (03/07/2024 7:02 PM CDT) Hold Specimen [facility] 03/07/2024 8:07 PM CDT RH LABORATORY Blood STRUCTURE OF RIGHT UPPER LIMB / Unknown Venipuncture / Unknown 03/07/2024 7:02 PM CDT 03/07/2024 7:07 PM CDT Sandra Monroy MD LAB - BLOOD ORDERABLES Fin al Result [facility] [address] Lab (1st floor, no room number) [place] [address] * Extra Blue Top Tube (03/07/2024 7:02 PM CDT) [facility] Hold Specimen [facility] 03/07/2024 8:07 PM CDT LABORATORY Blood STRUCTURE OF RIGHT UPPER LIMB / Unknown Venipuncture / Unknown 03/07/2024 7:02 PM CDT 03/07/2024 7:07 PM CDT Sandra Monroy MD LAB - BLOOD ORDERABLES Fin al Result Performing Organization Address [facility] Co de Phone Number [facility] Lab [address] Lab (1st floor, no room number) [place] [phone], [facility] * (ABNORMAL) Ketone Beta-Hydroxybutyrate Quantitative (03/07/2024 7:02 PM CDT) [facility] Ketone (Beta-Hydroxybuty rate) Quantitative 0.44(H) <=0.30 mmol/L 03/07/2024 8:09 PM CDT LABORATORY Blood STRUCTURE OF RIGHT UPPER LIMB / Unknown Venipuncture / Unknown 03/07/2024 7:02 PM CDT 03/07/2024 7:07 PM CDT Sandra Monroy MD LAB - BLOOD ORDERABLES Fin al Result [facility] Care Lab [address] Lab (1st floor, no room number) [place] [phone], [facility] * (ABNORMAL) CBC with platelets and differential (12/28/2023 6:41 PM CDT) [facility] WBC Count 5.9 4.0 - 11.0 10e3/uL [...] [facility] Lab [address] [facility] Lab (1st floor, no room number) [place] [address] * Adult Type and Screen (12/28/2023 6:41 PM CDT) ABO/RH(D) A POS 12/28/2023 6:28 PM CDT RH BLOOD BANK Antibody Screen Negative Negative 12/28/2023 6:28 PM CDT RH BLOOD BANK SPECIMEN EXPIRATION DATE [id number] 12/28/2023 6:28 PM CDT RH BLOOD BANK Blood STRUCTURE OF RIGHT UPPER LIMB / Unknown Venipuncture / Unknown 12/28/2023 6:41 PM CDT 12/28/2023 6:46 PM CDT Agustin Cesar MD LAB - BLOOD BANK TEST O RDER Final Result [facility] BLOOD BANK [address] [facility] [place] [address] * INR (12/28/2023 6:41 PM CDT) INR 1.01 0.85 - 1.15 12/28/2023 7:00 PM CDT RH LABORATORY Blood STRUCTURE OF RIGHT UPPER LIMB / Unknown Venipuncture / Unknown 12/28/2023 6:41 PM CDT 12/28/2023 6:46 PM CDT Agustin Cesar MD LAB - BLOOD ORDERABLES Final Result LABORATORY [facility] Care Lab [address] Lab (1st floor, no room number) [place] [address] * Partial thromboplastin time (12/28/2023 6:41 PM CDT) aPTT 28 22 - 38 Seconds 12/28/2023 7:00 PM CDT LABORATORY Blood STRUCTURE OF RIGHT UPPER LIMB / Unknown Venipuncture / Unknown 12/28/2023 6:41 PM CDT 12/28/2023 6:46 PM CDT Agustin Cesar MD LAB - BLOOD ORDERABLES Final Result Performing Organization Address City/[facility]/ZIP Co de Phone Number LABORATORY [facility] Care Lab [address] Lab (1st floor, no room number) [place] [address], [facility] * (ABNORMAL) Comprehensive metabolic [...] [facility] [address] [facility] Lab (1st floor, no room number) [place] [address], [facility] * (ABNORMAL) Hemoglobin [...] KIMBERLY LAB - BLOOD ORDERABLES Final Result [facility] Acute Care Lab [address] Lab (1st floor, no room number) [place] [address], [facility] from Last 3 Months or Most Recently Relevant to Health Maintenance Insurance [place] Advance Directives For more information, please contact: [phone] Documents on File Type Date Recorded Patient Bilingual Office Assistant Expl anation Advance Directives and Living [...] patie nt/ legal decision maker Care Teams Behavior Specialist Relationship Specialty Start Date End Date Services, [facility] Physician [address] [place] [id number] PCP - General 05/22/21 Prince Tobar MD [address] [place] [id number] Cardiovascular Disease 03/26/22 Prince Tobar MD [address] [place] [address] Assigned Heart and Vascular Provider 05/30/22 Matilde Pérez PA-C [address] [place], [place] [phone] Physician Switchboard Installer Physician Switchboard Installer - Surgical 12/30/23 Torie Jimenez APRN PICK UP WORKER [address] [facility] [address] [place], [place] [phone] Nurse Practitioner Colon & Rectal 03/17/24 Reinaldo Beltran PA-C [facility] [address] [place] [phone] Physician Switchboard Installer Emergency Medicine 03/17/24
--- OUTSIDE RECORDS SUMMARY | 2024-03-17 23:55 | XMS_ITS | Clinical Summary ---
Author Organization [facility] Address [address] [place] [address] Phone Care Team Providers Care Hot Kettle Tender Name Role Phone Mellisa Shirley PA-C Primary Care Provider [phone] Allergies Active Allergy Reactions Criticality Noted Date [...] 2 Active cholecalciferol (VITAMIN D-3) 1.25 MG (92964 UT) capsule Take 1,250 mcg by mouth [...] topic Insurance [place]ICAID [place] MEDICARE Care Teams Hot Kettle Tender Relationship Specialty Start Date End Date Mellisa Shirley PA-C PCP - General Physician Media Sales Executive 08/31/22
--- OUTSIDE RECORDS SUMMARY | 2024-03-17 23:55 | XMS_ITS | Referral Summary ---
Author Organization [place] Address [address] [place] [address] Care Team Providers Care Bank Messenger Name Role Phone Services, [facility] Physician Primary Care Provi sadia Prince Toabr MD Unavailable Prince Tobar MD Unavailable Matilde Pérez PA-C Unavailable [phone] Torie Jimenez APRN PILLOWCASE CUTTER Unavaila ble Reinaldo Beltran PA-C Unavailable Encounters Date Type Department Care Team Description 03/08/[address] [facility] [address] [place] [phone] Matilde Pérez PA-C Previsit 03/07/2024 5:35 PM CDT - 03/08/2024 8:21 PM CDT Emergency [facility] [address] [place] [phone] Sandra Monroy MD [place], Samuel, MD McDonald, Lindsey E, DO Hyperglycemia (Primary Dx); Urinary tract infection with hematuria, site unspecified Discharge Disposition: Home or Self Care 03/07/2024 Travel 12/28/2023 6:08 PM CDT - 12/29/2023 12:59 AM CDT Emergency [facility] [address] [place] [address] Agustin Cesar MD Anal fissure; External hemorrhoids [...] daily Active cholecalciferol (VITAMIN D3) 1250 mcg (90887 units) capsule Take 1,250 mcg by mouth every 7 days on Wednesdays. Active venlafaxine (EFFEXOR-XR) 75 MG 24 hr capsule Take 225 mg by mouth daily Active hydrALAZINE (APRESOLINE) 50 MG tablet Take 50 mg by mouth 4 times daily Active polyethylene glycol (MIRALAX) 17 GM/Dose powder Take 17 g by mouth daily Active nystatin (MYCOSTATIN) 105267 UNIT/GM external powder Apply topically 2 times [...] daily for 7 days 4 g 12/28/19 Active insulin glargine (LANTUS PEN) 100 UNIT/ML [...] days. 14 capsule 03/08/20 24 024 Active Problems Problem Noted Date Diagnosed Date Elevated troponin 12/16/2022 Chest pain, unspecified type 12/16/2022 Diabetes mellitus, type 2 05/26/2022 Morbid obesity 05/26/2022 Abdominal wall cellulitis 05/17/2021 Sepsis, due to unspecified o rganism, unspecified whether acute organ dysfunction present 05/17/2021 Persistent headaches 03/01/2013 Epilepsy 03/01/2013 Immunizations Name Administration Dates Next Due COVID-19 MONOVALENT 12+ (Pfizer) 06/25/2020,05/17 [id number] Novel Flu 05/07/2009 Hepatitis B, Adult 02/16/2014,10/12/2013, [...] file Legal Sex Male 3:35 AM SALES EXECUTIVE Gender Identity Not on file Sexual Orientation Choose not to disclose 2021 8:14 AM SALES EXECUTIVE Last Filed Vital Signs Vital Sign Reading [...] without heart failure Atherosclerotic heart disease of [place] coronary artery without angina pectoris Body mass [...] POCT Final Re sult RH LABORATORY POC [facility] [address] [facility] Lab (1st floor, no room number) [place] [address], [facility] * (ABNORMAL) UA with Microscopic (03/08/2024 8:29 AM CDT) Color Urine Dark Brown(A) Colorless, Straw, Light Yellow, Yellow 03/08/2024 8:53 AM CDT LABORATORY Appearance Urine Cloudy(A) Clear 03/08/20 8:53 AM CDT LABORATORY Glucose Urine >=1000(A) Negative mg/dL 03/08/2024 8:53 AM CDT LABORATORY Bilirubin Urine Negative Negative 8:53 AM CDT LABORATORY Ketones Urine Negative Negative mg/dL 03/08/2024 8:53 AM CDT LABORATORY Specific [place] Urine 1.023 1.003 - 1.035 03/08/2024 8:53 AM CDT LABORATORY Blood Urine Large(A) Negative 03/08/2024 8:53 AM CDT LABORATORY pH Urine 7.5(H) 5.0 - 7.0 03/08/2024 8:53 AM CDT RH LABORATORY Protein Albumin Urine 600(A) Negative mg/dL [...] - URINE ORDERABLES Fin al Result LABORATORY [facility] [address] [facility] Lab (1st floor, no room number) [place] [address] * (ABNORMAL) Basic metabolic panel (BMP) [...] BLOOD ORDERABLES Fin al Result RH LABORATORY [facility] [address] Lab (1st floor, no room number) [place] [address], [facility] * (ABNORMAL) Blood gas venous (03/07/2024 [...] LAB - BLOOD ORDERABLES Hemant al Result [facility] [address] Lab (1st floor, no room number) [place] [phone] [place] [address] * Extra Purple Top Tube (03/07/2024 7:02 PM CDT) [facility] Signature Hold Specimen [facility] 03/07/2024 8:07 PM CDT RH LABORATORY Blood STRUCTURE OF RIGHT UPPER LIMB / Unknown Venipuncture / Unknown 03/07/2024 7:02 PM CDT 03/07/2024 7:07 PM CDT us Sandra Monroy MD LAB - BLOOD ORDERABLES Fin al Result [facility] [address] Lab (1st floor, no room number) [place] [address] * Extra Red Top Tube (03/07/2024 7:02 PM CDT) [facility] Signature Hold Specimen [facility] 03/07/2024 8:07 PM CDT LABORATORY Blood STRUCTURE OF RIGHT UPPER LIMB / Unknown Venipuncture / Unknown 03/07/2024 7:02 PM CDT 03/07/2024 7:07 PM CDT us Sandra Monroy MD LAB - BLOOD ORDERABLES Fin al Result [facility] [address] Lab (1st floor, no room number) [address] * Extra Blue Top Tube (03/07/2024 7:02 PM CDT) Hold Specimen [facility] 03/07/2024 8:07 PM CDT LABORATORY Blood STRUCTURE OF RIGHT UPPER LIMB / Unknown Venipuncture / Unknown 03/07/2024 7:02 PM CDT 03/07/2024 7:07 PM CDT us Sandra Monroy MD LAB - BLOOD ORDERABLES Fin al Result [facility] [address] Lab (1st floor, no room number) [address] * (ABNORMAL) Ketone Beta-Hydroxybutyrate Quantitative (03/07/2024 7:02 PM CDT) [facility] Ketone (Beta-Hydroxybuty rate) Quantitative 0.44(H) <=0.30 mmol/L 03/07/2024 8:09 PM CDT LABORATORY Blood STRUCTURE OF RIGHT UPPER LIMB / Unknown Venipuncture / Unknown 03/07/2024 7:02 PM CDT 03/07/2024 7:07 PM CDT us Sandra Monroy MD LAB - BLOOD ORDERABLES Fin al Result [facility] [address] Lab (1st floor, no room number) [place] [address], [facility] * (ABNORMAL) CBC with platelets and differential (12/28/2023 6:41 PM CDT) [facility] Signature WBC Count 5.9 4.0 - 11.0 10e3/uL [...] LAB - BLOOD ORDERABLES Final Result LABORATORY [facility] [address] [facility] Lab (1[facility] floor, no room number) [place] [address] * Adult Type and Screen (12/28/2023 6:41 PM CDT) ABO/RH(D) A POS 12/28/2023 6:28 PM CDT RH BLOOD BANK Antibody Screen Negative Negative 12/28/2023 6:28 PM CDT RH BLOOD BANK SPECIMEN EXPIRATION DATE [id number] 12/28/2023 6:28 PM CDT RH BLOOD BANK Blood STRUCTURE OF RIGHT UPPER LIMB / Unknown Venipuncture / Unknown 12/28/2023 6:41 PM CDT 12/28/2023 6:46 PM CDT Agustin Cesar MD LAB - BLOOD BANK TEST O RDER Final Result BLOOD BANK [address] [place] [address] * INR (12/28/2023 6:41 PM CDT) INR 1.01 0.85 - 1.15 12/28/2023 7:00 PM CDT RH LABORATORY Blood STRUCTURE OF RIGHT UPPER LIMB / Unknown Venipuncture / Unknown 12/28/2023 6:41 PM CDT 12/28/2023 6:46 PM CDT Agustin Cesar MD LAB - BLOOD ORDERABLES Final Result [facility] [address] Lab (1st floor, no room number) [place] [phone] * Partial thromboplastin time (12/28/2023 6:41 PM CDT) Pathologist [facility] aPTT 28 22 - 38 Seconds 12/28/2023 7:00 PM CDT LABORATORY Blood STRUCTURE OF RIGHT UPPER LIMB / Unknown Venipuncture / Unknown 12/28/2023 6:41 PM CDT 12/28/2023 6:46 PM CDT Agustin Cesar MD LAB - BLOOD ORDERABLES Final Result Performing Organization Address City/[facility]/ZIP Co de Phone Number [facility] [address] Lab (1st floor, no room number) [place] [phone] * (ABNORMAL) Comprehensive metabolic panel (12/28/2023 6:41 PM CDT) Pathologist [facility] Sodium 136 135 - 145 mmol/L 12/28/2023 [...] 7:09 PM CDT RH LABORATORY Comment:eGFR calculated us2020 CKD-EPI equation. Calcium 8.6(L) 8.8 - 10.4 [...] - BLOOD ORDERABLES Final Result RH LABORATORY [facility] [address] [facility] Lab (1st floor, no room number) [place] [address], [facility] * (ABNORMAL) Hemoglobin A1c (10/15/2023 3:13 PM CDT) Hemoglobin A1C 10.8(H) <5.7 % 10/15/2023 4:57 PM CDT RH LABORATORY Comment: Normal <5.7% Prediabetes 5.7-6.4% ?? Diabetes 6.5% or higher Note: Adopted from ADA consensus guidelines. Blood BLOOD SPECIMEN / Unknown Client Draw / Unknown 10/15/2023 3:13 PM CDT 10/15/2023 4:25 PM CDT Harrison Munson NP LAB - BLOOD ORDERABLES Final Result LABORATORY [facility] [address] [facility] Lab (1st floor, no room number) [place] [address], [facility] from Last 3 Months or Most Recently Relevant to Health Maintenance Insurance [place]ICARE [place] Advance Directives For more information, please contact: [phone] Documents on File Type Date Recorded Patient Color Adviser Expl anation Advance Directives and Living Will [...] angiee nt/ legal decision maker Care Teams Bank Messenger Relationship Specialty Start Date End Date Services, [facility] Physician [address] [place] [address] PCP - General 05/22/21 Prince Tobar MD [address] [place] [address] Cardiovascular Disease 03/26/22 Prince Tobar MD [address] [place] [address] Assigned Heart and Vascular Provider 05/30/22 Matilde Pérez PA-C [address] [place] [address] Physician Delivery Analyst Physician Delivery Analyst - Surgical 12/30/23 Torie Jimenez APRN PILLOWCASE CUTTER [address] [facility] [address] [place], [place] [address] Nurse Practitioner Colon & Rectal 03/17/24 Reinaldo Beltran PA-C [facility] [address] [address] [place] [address] Physician Delivery Analyst Emergency Medicine 03/17/24
--- OUTSIDE RECORDS SUMMARY | 2024-03-17 23:56 | XMS_ITS | Encounter Summary ---
Author Organization [place] Address [address] [facility] [place] [address] Care Team Providers Care Methods Analyst Data Processing Name Role Phone Services, [facility] Physician Primary Care Provi sadia Prince Tobar MD Unavailable Prince Tobar MD Unavailable Matilde Pérez PA-C Unavailable [phone] Reason for Visit * Reason Onset Date Comments Previsit 03/08/2024 Encounter Details Date Type Department Care Team (Late st Contact Info) Description 03/08/[address] 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 Cesar [...] on filedocumented in this encounter Care Teams Methods Analyst Data Processing Relationship Specialty Start Date End Date Services, [facility] Physician [address] [place] [address] PCP - General 05/22/21 Prince Tobar MD [address] [place] [address] Cardiovascular Disease 03/26/22 Prince Tboar MD [address] [place] [address] Assigned Heart and Vascular Provider 05/30/22 Matilde Pérez PA-C [address] [place] [address] [phone] Physician [employer] Pe Teacher Physician [employer] Pe Teacher - Surgical 12/30/23 documented as of this encounter
--- OUTSIDE RECORDS SUMMARY | 2024-03-17 23:56 | XMS_ITS | Encounter Summary ---
Author Organization [place] Address [address] [facility] [place] [address] Care Team Providers Care Trial Judge Name Role Phone Services, [facility] Physician Primary Care Provi sadia Prince Tobar MD Unavailable [phone] Prince Tobar MD Unavailable [phone] Reason for Referral * Consultation (Priority: 1-2 Weeks) - Pending Review Specialty Diagnoses / Procedures Referred By Contjohnny t Referred To Contact Colon and Rectal Surgery Diagnoses Anal fissure External hemorrhoids Reinaldo Beltran PA-C [facility] [address]IMM [address] [place] [phone] Phone: tel: fax: Referral ID Status Reason Start Date Expiration Date V isits Requested Visits Authorized [id number] Pending Review 12/28/2023 12/27/2024 1 1 Question Answer Reason for Referral: Anal Fissure Special Concerns: Other My Clinical Question Is: Anal fissure, taking Apixaban Scheduling Instructions: [employer] will call you to coordinate care as prescribed your provider. If you don? t hear from a support representative within 2 business days, please call . Comments Please be aware that coverage of these services is subject to the terms and limitations of your health insurance plan. Call member services at your health plan with any benefit or coverage questions. [employer] will call you to coordinate care as prescribed your provider. If you don? t hear from a support representative within 2 business days, please call . Reason for Visit * Reason Comments Rectal Bleeding Encounter Details Date Type Department Care Team (Late st Contact Info) Description 12/28/2023 6:08 PM CDT - 12/29/2023 12:59 AM CDT Emergency [facility] Emergency Dept [address] [place] [address] Agustin Cesar MD [address] [place], [place] [id number] Anal fissure; External hemorrhoids Discharge Disposition: Home [...] on file Legal Sex Male 3:35 AM HIM MANAGER Gender Identity Not on file Sexual Orientation Choose not to disclose 2021 8:14 AM HIM MANAGER documented as of this encounter Last Filed [...] PM CDT Thank you for coming to [facility] emergency department. The bleeding you noted on [...] mouth daily cholecalciferol (VITAMIN D3) 1250 mcg (45729 units) capsule Take 1,250 mcg by mouth [...] 7 days 4 g 12/28/2023 nystatin (MYCOSTATIN) 649899 UNIT/GM external powder Apply topically 2 times [...] MG tablet cholecalciferol (VITAMIN D3) 1250 mcg (70717 units) capsule clotrimazole (LOTRIMIN) 1 % external [...] 200 MG 24 hr tablet nystatin (MYCOSTATIN) 993287 UNIT/GM external powder pantoprazole (PROTONIX) 40 MG [...] POS Antibody Screen Negative SPECIMEN EXPIRATION DATE [id number] ABO/RH TYPE AND SCREEN Emergency Department Course [...] 1. Anal fissure K60.2 Adult Colorectal Surgery Dump Motor Operator Referral 2. External hemorrhoids K64.4 Adult Colorectal Surgery Dump Motor Operator Referral Discharge Medications: New Prescriptions HYDROCORTISONE, [...] yesterday, he went to a clinic in [place], he is unsure of what was done [...] MG tablet cholecalciferol (VITAMIN D3) 1250 mcg (21964 units) capsule clotrimazole (LOTRIMIN) 1 % external [...] 200 MG 24 hr tablet nystatin (MYCOSTATIN) 480749 UNIT/GM external powder pantoprazole (PROTONIX) 40 MG [...] POS Antibody Screen Negative SPECIMEN EXPIRATION DATE [id number] ABO/RH TYPE AND SCREEN Imaging No orders [...] Diagnosis [facility] Diagnoses: None MIPS None [facility] Leonid Leahy is a 63 year [...] 1. Anal fissure K60.2 Adult Colorectal Surgery Dump Motor Operator Referral 2. External hemorrhoids K64.4 Adult Colorectal Surgery Dump Motor Operator Referral Discharge Medications New Prescriptions HYDROCORTISONE, [...] Pt comes from assisted living facility in [place]. * Tamiko Monzon RN - 12/28/2023 6:08 PM CDT Bed: ED01 Expected date: Expected time: Means of arrival: Comments: [id number] 63Ym documented in this encounter Plan of Treatment Scheduled Referrals Name Type Priority Associated Diagnoses Orde r Schedule Adult Colorectal Surgery Dump Motor Operator Referral Referral Priority: 1-2 Weeks Anal [...] CDT RH BLOOD BANK SPECIMEN EXPIRATION DATE [id number] 12/28/2023 6:28 PM CDT RH BLOOD BANK Blood STRUCTURE OF RIGHT UPPER LIMB / Unknown Venipuncture / Unknown 12/28/2023 6:41 PM CDT 12/28/2023 6:46 PM CDT Agustin Cesar MD LAB - BLOOD BANK TEST O RDER Final Result BLOOD BANK [facility] [place] [place] [address], [facility] * (ABNORMAL) [...] LAB - BLOOD ORDERABLES Final Result LABORATORY [facility] Acute Care Lab [address] Lab (1st floor, no room number) [place] [address], [facility] * (ABNORMAL) [...] MD LAB - BLOOD ORDERABLES Final Result [facility] Lab [email or web address] Lab (1st floor, no room number) [place] [address] * Partial thromboplastin time (12/28/2023 6:41 PM CDT) aPTT 28 22 - 38 Seconds 12/28/2023 7:00 PM CDT RH LABORATORY Blood STRUCTURE OF RIGHT UPPER LIMB / Unknown Venipuncture / Unknown 12/28/2023 6:41 PM CDT 12/28/2023 6:46 PM CDT Agustin Cesar MD LAB - BLOOD ORDERABLES Final Result [facility] Acute Care Lab [address] Lab (1st floor, no room number) [place] [address] * INR (12/28/2023 6:41 PM CDT) INR 1.01 0.85 - 1.15 12/28/2023 7:00 PM CDT RH LABORATORY Blood STRUCTURE OF RIGHT UPPER LIMB / Unknown Venipuncture / Unknown 12/28/2023 6:41 PM CDT 12/28/2023 6:46 PM CDT us Agustin Cesar MD LAB - BLOOD ORDERABLES Final Result [facility] Acute Care Lab [address] Lab (1st floor, no room number) [place] [address], [facility] documented in this encounter Visit Diagnoses Diagnosis Anal fissure External hemorrhoids External hemorrhoids without mention of complication documented in this encounter Care Teams Trial Judge Relationship Specialty Start Date End Date Services, [facility] Physician [address] [place] [id number] PCP - General 05/22/21 Prince Tobar MD [address] [place] [address] Cardiovascular Disease 03/26/22 Prince Tobar MD [address] [place] [address] Assigned Heart and Vascular Provider 05/30/22 documented as of this encounter
--- OUTSIDE RECORDS SUMMARY | 2024-03-17 23:56 | XMS_ITS | Clinical Summary ---
Author Organization [facility] Address [place], [place] [address] Care Team Providers Care Clinical Social Work Aide Name Role Phone Alan Lopez MD Unavailable [phone] Nishant Watson MD Unavailable Pcp, No Primary [...] type 2 diabetes mellitus (HC),Chronic edema JOBST #[id number] LRG FULL CALF KNEE BLACK 20-30 COMPRESSION [...] mg extended release tablet 24 HourIndications:CAD in [place] artery Take 1 tablet by mouth once [...] call MD 0 04/01/2020 Active Insulin Safety [place], Disp, (NOVOFINE AUTOCOVER) 30 gauge x /3Indications:Cecelia [...] at 10 am and no showed. RN Elementary Educator, Juanita Yoo, notified and she will attempt [...] No, referral made to Advance Care Plan Mold Forms Builder. Patient has identified Specific Treatment Preferences: No Sophia Méndez RN .................... 07/06/2011 2:30 PM] Specific limits to treatment preferences NOT identified: ASSUME FULL TREATMENT. Assessment & Plan (05/25/2012 12:51 PM INDUSTRIAL SWEEPER CLEANER): Advance Care Planning: Disease-specific Session Leonid Leahy is a [facility] patient. His PCP is Leandra Limon at [facility]. Advance care planning discussions were completed with Leonid. He identified his sister, Brittany Suggs, as his healthcare agent. Brittany was not present for ACP session. Understanding of Illness and Disease [place]: Leonid identifies his medical condition as what [...] to live well: Daily visit to local [place] for a pop and to visit and catch up in the news with locals. Leonid obed with serious challenges in his life: Support of his sister, only a phone call away. Helps manage [facility] services. Leonid identifies the following fears and [...] and primary care provider. Hard Choices for [place] People booklet was sent to Leonid and his health care agent for review. Leonid requested all information be mailed to his sister and journalists and other writers to place call to sister to explain process. Leonid identified the following concerns during his advance care planning session: needing assistance at home to ensure he is managing his medications and treatments to keep going as is and stabilizing. Is followed by Clinic Airworthiness Inspector for needed services. Questions identified for his primary care provider: none Documents addressed during this advance care planning session: Health Care Directive completed and scanned into medical record. Statement of Treatment Preferences for advanced illness completed and scanned into the medical record. Recommendations/Plan: Leonid to review Advance Care Plan with Leonid's healthcare agent. Wire Bender will be contacting Leonid's [facility] to explain services rendered, Leonid would benefit from: Home Care and/or Hospice when / if appropriate. [facility] services involved, [facility] supports coordination of medical asistance. [...] 2:27 PM Sophia Méndez RN RN Clinic Airworthiness Inspector - [facility] [phone] Vitamin D deficiency 01/06/2011 011 Neuropathy 09/25/2010 [...] 176.9 kg (390 lb) 07/14/2022 6:10 PM INDUSTRIAL SWEEPER CLEANER Height 167.6 cm (5' 6) 07/14/2022 6:10 PM INDUSTRIAL SWEEPER CLEANER Body Mass Index 62.95 07/14/2022 6:10 PM INDUSTRIAL SWEEPER CLEANER Plan of Treatment Health Maintenance Due Date [...] Kay [employer] Medical Devices Implanted Type Area Penology Teacher Device Identifier Shelf Expiration Date Model / Serial / Lot Iol Floyd +20 Tecnis Zcb00 - [id number] Implanted:Qty: 1 on 07/15/2022 by Tanner Fuentes MD at [facility] Left: Eye [employer] 06/24/2025 ZCB00 20.0 / [id number] / Iol Floyd +20 Tecnis Zcb00 - [id number] Implanted:Qty: 1 on 08/19/2022 by Tanner Fuentes MD at [facility] Right: Eye [employer] 06/24/2025 ZCB00 20.0 / [id number] / Procedures Procedure Name Priority Date/Time Associated Diagnosis Comments LIPID PANEL Routine 03/13/2019 2:31 PM CDT Essential hypertriglyceridemia from Last 3 Months or Most Recently Relevant to Health Maintenance Results * (ABNORMAL) LIPID PANEL (03/13/2019 2:31 PM CDT) [facility] CHOLESTEROL,TOTAL 193 100 - 199 mg/dL 03/13/2019 9:25 PM CDT [facility] TRIGLYCERIDES 715(H) <150 mg/dL 03/13/2019 9:25 PM CDT [facility] HDL CHOLESTEROL 29(L) >40 mg/dL 9 9:25 PM CDT [facility] NON-HDL CHOLESTEROL 164(H) <145 mg/dl 03/13/2019 9:25 PM CDT [facility] CHOL/HDL RATIO 6.66(H) <4.50 03/13/2019 9:25 PM CDT [facility] LDL CHOLESTEROL 9 9:25 PM CDT [facility] Comment:Invalid LDL when Tri g >400. PROVIDER ORDERED STATUS RANDOM 03/13/2019 9:25 PM CDT [facility] Blood BLOOD SPECIMEN / Unknown Venipuncture / Unknown 03/13/2019 2:31 PM CDT 03/13/2019 2:31 PM CDT Suellen Sosa MD CHEMISTRY [facility] 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 PCP - General 07/15/22 Alan Lopez MD Internal Medicine Internal Medicine 11/20/10 Nishant Watson MD [address] [place] [address] Endocrinology 08/15/13
--- OUTSIDE RECORDS SUMMARY | 2024-03-17 23:56 | XMS_ITS | Encounter Summary ---
Author Organization [place] Address [address] [facility] [place] [address] Care Team Providers Care Print Production Coordinator Name Role Phone Services, [facility] Physician Primary Care Provi sadia Prince Tobar MD Unavailable Prince Tobar MD Unavailable Matilde Pérez PA-C Unavailable Reason for Visit * Reason Comments Hyperglycemia Social Work Services Encounter Details Date Type Department Care Team (Late st Contact Info) Description 03/07/2024 5:35 PM CDT - 03/08/2024 8:21 PM CDT Emergency [facility] Emergency Dept [address] [place] [address] Sandra Monroy MD [facility] [address] [place], [place] [id number] Tex David MD [facility] [address] [place] [address] Vera Lopez DO [facility] [address] [place] [id number] Hyperglycemia (Primary Dx); Urinary tract infection with [...] on file 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 * UTI (Urinary Tract Infection): Male (Norwegian) * Hyperglycemia: General Info (Norwegian) documented in this encounter Medications at Time [...] mouth daily cholecalciferol (VITAMIN D3) 1250 mcg (92096 units) capsule Take 1,250 mcg by mouth [...] 2 times daily 9AM and 9PM insulin glargine (LANTUS PEN) 100 UNIT/ML pen Inject 30 Units subcutaneously 2 times daily. 18 mL 4 04/07/20 24 insulin reg HIGH CONC (HUMULIN R U-500 HIGH CONC) 500 Units/mL injection Inject 100 Units Subcutaneous 3 times daily at AM, midday, PM insulin reg HIGH CONC (HUMULIN R U-500 KWIKPEN) 500 UNIT/ML PEN soln Inject 100 Units subcutaneously 3 times daily (before meals). 18 mL 4 04/07/20 24 isosorbide mononitrate (IMDUR) 60 MG 24 hr [...] 200 mg by mouth daily nystatin (MYCOSTATIN) 085845 UNIT/GM external powder Apply topically 2 times [...] capsule Take 225 mg by mouth daily cephALEXin (KEFLEX) 500 MG capsule Take 1 capsule (500 mg) by mouth 2 times daily for 7 days. 14 capsule 4 03/15/20 24 documented as of this encounter Consult Notes * Teresa Alexander, [facility] - 03/08/2024 5:47 PM CDTAssociated Order(s): CARE MANAGEMENT / SOCIAL WORK IP CONSULT; CARE MANAGEMENT / SOCIAL WORK IP CONSULT Summary: Discharge Planning Care Management Medical [facility]dc Outpatient Consult Care management consulted by provider for mcc assessment. CM spoke with provider to discuss mcc case. Provider has confirmed patient is medically stable for discharge. Background information: Patient was brought into the ED via EMS because of blood sugars and the assisted didn't have any insulin or pens for insulin to give them. Care team recommended discharge disposition: Return to his assisted Resources needed for discharge: needs medications, insulin and pens Discharge plan secured to meet patient's needs? Yes Estimated timeline for discharge: less than 24 hours Barriers to discharge: Getting patient insulin Discussed above with provider & saw filer. Next steps: Anticipate patient will discharge within the next 24 hours to assisted with medication support/resources for follow-up. Patient has an established discharge plan that can meet their needs as identified above. SW met with patient, all he wants to do is return to the assisted. AGATA spoke with patient guardian, Joycelyn reported that the assisted is having difficulty getting patient's insulin. She reports it is due to the assisted changing pharmacies. SW verified patient's MA number which is active. Several calls placed to assisted's pharmacy, [facility]. They wee not able to verified medications. Spoke with the RN at the assisted,Fany [phone]. She reports that she has been calling pharmacy for the insulin but has not received it. [facility] is a mail in pharmacy so assisted isn't sure when they will get the insulin. AGATA discussed with MD and charge nurse, plan was to see if the medications can be filled here. Once patient's insulin and pen can be verified. Patient will return to assisted via wheelchair. ACE Palacio Software Manager Inpatient Care Coordination Criminal Investigator Customs Collection Specialist [facility] [phone] ACE Haque documented in this encounter ED Notes * Chiki Rajan MD - 03/08/2024 8:21 PM CDT SW arranged home. Insulin per med rec filled here and Rx for home. Chiki Rajan MD 03/11/24 0023 * Lena Mathis RN - 03/08/2024 5:18 PM CDT Spoke with Fany, nurse marketing sales manager several times. She accepted report [...] male with history of DM presenting from assisted. He reports facility ran out of insulin [...] - 03/07/2024 7:53 PM CDT Fany Nurse Chamber Walker at the [facility] phone: [phone]. Dianne Lip Reading Teacher: [phone] Fany states pt receives Humulin 100u TID [...] hyperglycemia and social work issue. Patientreports his assisted staff checked his blood sugar to be high. He states he does not feel sick. No fever, headache, chest pain, or diarrhea. Per EMS, assisted facility informed them that insulin ran out [...] MG tablet cholecalciferol (VITAMIN D3) 1250 mcg (59107 units) capsule clotrimazole (LOTRIMIN) 1 % external [...] hr tablet nitroGLYcerin 0.2% ointment nystatin (MYCOSTATIN) 437021 UNIT/GM external powder pantoprazole (PROTONIX) 40 MG [...] TID and Basaglar 30 units BID. Sandra [phone] I spoke with Andressa, pharmacist, regarding the patient. Wed Mar 08, 2024 0116 Tried to talk to about dispo planning 0125 I reassessed the patient and discussed plan. He agrees. Additional Documentation None Medical Decision Making / Diagnosis [facility] Diagnoses: None MIPS None MDM Leonid [...] deemed safe to go back to his assisted. It is also quite difficult to get a hold of the assisted staff. Therefore we will watch the patient [...] Prescriptions No medications on file Scribe Disclosure: ILisa, am serving as a scribe at 6:03 PM on 03/07/2024 to document services personally performed by Sandra Monroy MD based on my observations and the provider's statements to me. Sandra Monroy MD 03/08/24 0229 * Felicita Mclain RN - 03/07/2024 5:01 PM CDT Patient THAD from assisted for concerns of hyperglycemia. Upon EMS arrival [...] Miscellaneous Notes * Pharmacy - Andressa Buitrago RP - 03/08/2024 5:28 PM CDT Brief Emergency Department Pharmacist Note: Prescriptions sent to [facility] pharmacy for Lantus and Humulin U-500 pens. [facility] pharmacy called and is unable to fill the Lantus as refill too soon. Attempted to call pt's [facility] but they are closed. So called Nurse Chamber Walker, Fany, for the assisted #[phone]. She stated that [facility] was able to fill both the Basaglar and Humulin U-500 pens yesterday and today and both are being delivered tonight. She was told that the Humulin U-500 would be delivered between [id number] and the Basaglar would be delivered after [...] U-500 is being delivered tonight. Spoke with [facility] Pharmacy, they only have one U-500 pen in stock and so will dispense the one pen. This will be enough to get patient by until the [facility] delivery is delivered to his assisted this evening after 1999. No further action required. Andressa Buitrago, PharmD, [facility] Emergency Medicine Pharmacist [phone] or Deven March 08, 2024 documented in [...] Glucose by meter (03/08/2024 6:50 PM CDT) [facility] GLUCOSE BY METER POCT 131(H) 70 - 99 mg/dL 03/08/2024 6:57 PM CDT LABORATORY POC Blood, Capillary BLOOD SPECIMEN / Unknown 03/08/2024 6:50 PM CDT 03/08/2024 6:57 PM CDT us Vera Lopez DO LAB - BEAKER POCT Final Re sult LABORATORY [facility] Acute Care Lab [address] Lab (1st floor, no room number) [place] [phone] [place] [address] * (ABNORMAL) Glucose by meter (03/08/2024 4:21 PM CDT) GLUCOSE BY METER POCT 192(H) 70 - 99 mg/dL 03/08/2024 4:34 PM CDT LABORATORY POC Blood, Capillary BLOOD SPECIMEN / Unknown 03/08/2024 4:21 PM CDT 03/08/2024 4:34 PM CDT Vera Lpoez DO LAB - BEAKER POCT Final Re sult Performing Organization Address [facility]/ZIP Co de Phone Number LABORATORY [facility] Care Lab [address] Lab (1st floor, no room number) [address] [place] [address] * (ABNORMAL) Glucose by meter (03/08/2024 12:20 PM CDT) GLUCOSE BY METER POCT 202(H) 70 - 99 mg/dL 03/08/2024 12:26 PM CDT LABORATORY POC Blood, Capillary BLOOD SPECIMEN / Unknown 03/08/2024 12:20 PM CDT 03/08/2024 12:26 PM CDT Vera Lopez DO LAB - BEAKER POCT Final Re sult LABORATORY [facility] Care Lab [address] Lab (1st floor, no room number) [place] [phone] [place] [address] * (ABNORMAL) UA with Microscopic (03/08/2024 8:29 AM CDT) Color Urine Dark Brown(A) Colorless, Straw, Light Yellow, Yellow 03/08/2024 8:53 AM CDT LABORATORY Appearance Urine Cloudy(A) Clear 03/08/20 8:53 AM CDT LABORATORY Glucose Urine >=1000(A) Negative mg/dL 03/08/2024 8:53 AM CDT LABORATORY Bilirubin Urine Negative Negative 8:53 AM CDT LABORATORY Ketones Urine Negative Negative mg/dL 03/08/2024 8:53 AM CDT LABORATORY Specific Tyler Urine 1.023 1.003 - 1.035 03/08/2024 8:53 [...] - URINE ORDERABLES Fin al Result LABORATORY [facility] Acute Care Lab [address] Lab (1st floor, no room number) [place] [address], [facility] * (ABNORMAL) Glucose by meter (03/08/2024 8:07 AM CDT) GLUCOSE BY METER POCT 294(H) 70 - 99 mg/dL 03/08/2024 8:20 AM CDT RH LABORATORY POC Blood, venous BLOOD SPECIMEN / Unknown 03/08/2024 8:07 AM CDT 03/08/2024 8:20 AM CDT us Tex David MD LAB - BEAKER POCT Final Resu lt LABORATORY [facility] Care Lab [address] Lab (1st floor, no room number) [place] [address] * (ABNORMAL) Glucose by meter (03/08/2024 5:58 AM CDT) GLUCOSE BY METER POCT 346(H) 70 - 99 mg/dL 03/08/2024 6:05 AM CDT LABORATORY POC Blood, Capillary BLOOD SPECIMEN / Unknown 03/08/2024 5:58 AM CDT 03/08/2024 6:05 AM CDT us Tex David MD LAB - BEAKER POCT Final Resu lt Performing Organization Address [facility]/ZIP Co de Phone Number LABORATORY [facility] Lab [address] Lab (1st floor, no room number) [place] [address] * (ABNORMAL) Glucose by meter (03/08/2024 4:10 AM CDT) GLUCOSE BY METER POCT 413(H) 70 - 99 mg/dL 03/08/2024 4:17 AM CDT LABORATORY POC Blood, Capillary BLOOD SPECIMEN / Unknown 03/08/2024 4:10 AM CDT 03/08/2024 4:17 AM CDT us Tex David MD LAB - BEAKER POCT Final Resu lt LABORATORY [facility] Care Lab [address] Lab (1st floor, no room number) [place] [address], [facility] * (ABNORMAL) Glucose by meter (03/08/2024 2:54 AM CDT) GLUCOSE BY METER POCT 347(H) 70 - 99 mg/dL 03/08/2024 3:01 AM CDT LABORATORY POC Blood, Capillary BLOOD SPECIMEN / Unknown 03/08/2024 2:54 AM CDT 03/08/2024 3:01 AM CDT Tex David MD LAB - BEAKER POCT Final Resu lt LABORATORY [facility] Care Lab [address] Lab (1st floor, no room number) [place] [address] * (ABNORMAL) Glucose by meter (03/08/2024 1:48 AM CDT) GLUCOSE BY METER POCT 401(H) 70 - 99 mg/dL 03/08/2024 2:31 AM CDT LABORATORY POC Blood, Capillary BLOOD SPECIMEN / Unknown 03/08/2024 1:48 AM CDT 03/08/2024 2:31 AM CDT Sandra Monroy MD LAB - BEAKER POCT Final Re sult LABORATORY [facility] Care Lab [address] Lab (1st floor, no room number) [place] [address] * (ABNORMAL) Basic metabolic panel (BMP) [...] BLOOD ORDERABLES Fin al Result RH LABORATORY [facility] Acute Care Lab [address] Lab (1st floor, no room number) [place] [address], [facility] * (ABNORMAL) Blood [...] LAB - BLOOD ORDERABLES Hemant franz Result [facility] Lab [address] [facility] Lab (1st floor, no room number) [place] [address], [facility] * (ABNORMAL) Ketone Beta-Hydroxybutyrate Quantitative (03/07/2024 7:02 PM CDT) Ketone (Beta-Hydroxybuty rate) Quantitative 0.44(H) <=0.30 mmol/L 03/07/2024 8:09 PM CDT RH LABORATORY Blood STRUCTURE OF RIGHT UPPER LIMB / Unknown Venipuncture / Unknown 03/07/2024 7:02 PM CDT 03/07/2024 7:07 PM CDT us Sandra Monroy MD LAB - BLOOD ORDERABLES Hemant franz Result RH LABORATORY [facility] Acute Care Lab [address] Lab (1st floor, no room number) [place] [address], [facility] * (ABNORMAL) Glucose by meter (03/07/2024 7:02 PM CDT) GLUCOSE BY METER POCT 388(H) 70 - 99 mg/dL 03/07/2024 7:09 PM CDT LABORATORY POC Blood, venous BLOOD SPECIMEN / Unknown 03/07/2024 7:02 PM CDT 03/07/2024 7:09 PM CDT us Sandra Monroy MD LAB - BEAKER POCT Final Re sult LABORATORY [facility] Lab [address] Lab (1st floor, no room number) [place] [address], [facility] * Extra Purple Top Tube (03/07/2024 7:02 PM CDT) Hold Specimen [facility] 03/07/2024 8:07 PM CDT LABORATORY Blood STRUCTURE OF RIGHT UPPER LIMB / Unknown Venipuncture / Unknown 03/07/2024 7:02 PM CDT 03/07/2024 7:07 PM CDT us Sandra Monroy MD LAB - BLOOD ORDERABLES Fin al Result [facility] Care Lab [address] Lab (1st floor, no room number) [place] [address], [facility] * Extra Red Top Tube (03/07/2024 7:02 PM CDT) Hold Specimen [facility] 03/07/2024 8:07 PM CDT LABORATORY Blood STRUCTURE OF RIGHT UPPER LIMB / Unknown Venipuncture / Unknown 03/07/2024 7:02 PM CDT 03/07/2024 7:07 PM CDT us Sandra Monroy MD LAB - BLOOD ORDERABLES Fin al Result LABORATORY [facility] Acute Care Lab [address] Lab (1st floor, no room number) [place] [phone] * Extra Blue Top Tube (03/07/2024 7:02 PM CDT) Hold Specimen [facility] 03/07/2024 8:07 PM CDT LABORATORY Blood STRUCTURE OF RIGHT UPPER LIMB / Unknown Venipuncture / Unknown 03/07/2024 7:02 PM CDT 03/07/2024 7:07 PM CDT Sandra Monroy MD LAB - BLOOD ORDERABLES Fin al Result Performing Organization Address [facility]/ZIP Co de Phone Number LABORATORY [facility] Lab [address] [employer] Lab (1st floor, no room number) [address] * (ABNORMAL) Basic metabolic panel (03/07/2024 7:02 PM CDT) Sodium 132(L) 135 - 145 mmol/L 03/07/2024 7:34 PM CDT LABORATORY Potassium 3.5 3.4 - 5.3 mmol/L 03/07/2024 7:34 PM CDT LABORATORY Chloride 89(L) 98 - 107 mmol/L 03/07/2024 7:34 PM CDT LABORATORY Carbon Dioxide (CO2) 27 22 - 29 mmol/L 03/07/2024 7:34 PM CDT LABORATORY Anion Gap 16(H) 7 - 15 [...] - BLOOD ORDERABLES Fin al Result LABORATORY [facility] Acute Care Lab [address] [facility] Lab (1st floor, no room number) [place] [address] documented in this encounter Visit Diagnoses [...] Wed03/08/24 at 1220 1247 ($Given - Provi sdaia: Rae Irene RN)1999 (Canceled Entry - Provider: [...] RN) documented in this encounter Care Teams Print Production Coordinator Relationship Specialty Start Date End Date Services, [facility] Physician [address] [place] [address] PCP - General 05/22/21 Prince Tobar MD [address] [place] [address] [phone] Cardiovascular Disease 03/26/22 Prince Tobar MD [address] [place] [address] [phone] Assigned Heart and Vascular Provider 05/30/22 Matilde Pérez PA-C [address] [place] [address] [id number] Physician Pc Network Technician Physician Pc Network Technician - Surgical 12/30/23 documented as of this encounter
--- OUTSIDE RECORDS SUMMARY | 2024-03-17 23:56 | XMS_ITS | Encounter Summary ---
Author Organization [place] Address [address] [facility] 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
--- OUTSIDE RECORDS SUMMARY | 2024-03-17 23:56 | XMS_ITS | Encounter Summary ---
Author Organization [place] Address [address] [facility] 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 Gender Identity Not on file Sexual Orientation Choose not to disclose 2021 8:14 AM CLAIM ADJUSTER documented as of this encounter Plan of Treatment Not on file documented as of this encounter Visit Diagnoses Not on filedocumented in this encounter Care Teams Stitcher Special Machine Relationship Specialty Start Date End Date Services, [place] Physician [address] [place] [address], [facility] [address] [place], [place] [phone] PCP - General 05/22/21 Prince Tobar MD [address] [place] [address] Cardiovascular Disease 03/26/22 Prince Tobar MD [address] [place] [address] Assigned Heart and Vascular Provider 05/30/22 Matilde Pérez PA-C [address] [place] [phone] Physician Desk Interviewer Physician Desk Interviewer - Surgical 12/30/23 documented as of this encounter
== END 2024-03-03 19:11 | disposition home or self-care (01) ==
LOC: AMB 03-17 23:38
PROVIDERS: Visit Provider Family Medicine
DX: E11.65 Type 2 diabetes mellitus with hyperglycemia (principal)
CPT/HCPCS: A0425; A0428

== ENCOUNTER 2024-03-05 10:37 | Outpatient (CLI) | payer MEDICARE, MEDICAID, SELFPAY ==
--- OUTSIDE RECORDS SUMMARY | 2024-03-09 03:24 | XMS_ITS | CCD ---
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 Mineral Mixer Name Role Phone Arpit MCKINLEY-C, [place] Primary Care Provider Leona vailable [place] [employer]WORKS DRAFTER-C, [facility] Chronic Care Management U navailable Summary Purpose DataExchange Insurance Providers Payer name Policy type / Coverage type Covered green party ID Effective Begin Date Effective End Date [place] [id number] Unknown Unknown [place] [id number] Unknown Unknown Family history Sister Brittany Suggs Diagnosis Age At Onset No Family Disease Entered N/A Runs in the family Diagnosis Age At Onset No Known Diseases N/A Sister Blanka Mcduffie Diagnosis Age At Onset No Family Disease Entered N/A Social History Social History Element Codes Description Effec tive Dates Tobacco history SNOMED CT: 461899356 Never smoker 01/16 Sexually Active? Unknown No [...] Longterm 09/03/[address]: 936264205 No Alcohol Consum ption 09/02/2020 Allergies, Adverse Reactions, Alerts Substance Reaction Codes Entered Date Inactivated Date Status * NO KNOWN FOOD ALLERGIES Unknown 07/13/2023 No Inactive Date Active LISINOPRIL RxNorm: 00513 02/12/2020 No Inactive Da te Active Metformin [...] 09/07/2023 Resolved Coronary artery disease invo lving [place] coronary artery of [place] heart, angina presence unspecified ICD-10: I25.10 ICD-9: [...] Insulin 100 unit/mL (3 mL) subcutaneous RxNorm: 5712433 Inject 40 Unit(s) Subcutaneous BID 03/07/20 24 025 Active Please dispense one month supply. Humulin R U-500 (Concentrated) Insulin 500 unit/mL subcutaneous soln RxNorm: 574636 Inject 100 Unit(s) Subcutaneous AC before meals Three times daily before meals. 03/07/20 025 Active Accu-Chek Guide test strips RxNorm: Use 1 Test Strip QID And PRN-- also dispense Soft Touch Lancets (QID and PRN) to be use with new Accu [place] meter 03/04/20 024 Inactive ok to substitute with any covered alternative test strip Accu-Chek Guide Glucose Meter RxNorm: Use 1 Miscellaneous UD as directed Use glucose meter to monitor blood glucose 4 times daily and as needed. Dx:E11.42 03/04/202 024 Inactive nystatin 100,000 unit/gram topical powder RxNorm: 085926 Apply 1 Application Topical BID as needed [...] (Concentrated) Insulin 500 unit/mL subcutaneous soln RxNorm: 173629 Inject 100 Unit(s) Subcutaneous TID 02/17/20 24 024 Inactive Humulin R U-500 (Concentrated) Insulin 500 unit/mL subcutaneous soln RxNorm: 770376 Inject 100 Unit(s) Subcutaneous TID 02/10/20 24 024 Inactive Basaglar KwikPen U-100 Insulin 100 unit/mL (3 mL) subcutaneous RxNorm: 1019942 Inject 30 Unit(s) Subcutaneous BID 02/10/20 24 024 Inactive Please dispense one month supply. pregabalin 100 mg capsule RxNorm: 276375 Take 1 Capsule(s) Oral QAM every morning 02/07/20 24 024 Active isosorbide mononitrate ER 60 mg tablet,extended release 24 hr RxNorm: 913647 Take 1 Tablet(s) Oral QD 02/01/20 24 025 Active aripiprazole 15 mg tablet RxNorm: 290049 Take 1/2 Tablet(s) Oral QD 02/01/20 24 025 Active torsemide 20 mg tablet RxNorm: 926268 1 TAB ORALLY DAILY (DX: EDEMA) 01/27/20 No Stop Date Active potassium chloride ER 20 mEq tablet,extended release(part/cryst) RxNorm: 8483943 2 TABS (40MEQ) ORALLY TWICE DAILY (DX: HYPOKALEMIA) 01/27/20 No Stop Date Active cephalexin 500 mg capsule RxNorm: 453296 Take 1 Capsule(s) Oral QID 12/17/19 24 Inactive cephalexin 500 mg capsule RxNorm: 693603 Take 1 Capsule(s) Oral QID 12/17/19 24 Inactive acetaminophen 500 mg tablet RxNorm: 535752 (MAX APAP:4GM/24HR) Take 1 Tablet(s) Oral TID as needed for pain 12/10/19 24 Active torsemide 20 mg tablet RxNorm: 591401 Take 1 Tablet(s) Oral QD 10/26/19 24 Inactive potassium chloride ER 20 mEq tablet,extended release RxNorm: 613670 Take 2 Tablet(s) Oral BID 10/26/19 24 Active torsemide 20 mg tablet RxNorm: 119387 Take 1 Tablet(s) Oral QD 10/26/19 24 024 Inactive potassium chloride ER 20 mEq tablet,extended release RxNorm: 129608 Take 2 Tablet(s) Oral BID 10/26/19 24 Inactive Artificial Tears (PF) 0.1 %-0.3 % drops in a dropperette RxNorm: 101642 Apply 1-2 Drop(s) Both eyes BID as needed 09/28/19 24 025 Active erythromycin 5 mg/gram (0.5 %) eye ointment RxNorm: 090756 Apply 1 Application Both eyes QHS every night at bedtime Instill ~1 cm ribbon into affected eye 09/28/19 24 Inactive Artificial Tears (PF) 0.1 %-0.3 % drops in a dropperette RxNorm: 541441 Apply 1-2 Drop(s) Both eyes BID as needed 09/28/19 24 Inactive erythromycin 5 mg/gram (0.5 %) eye ointment RxNorm: 459969 Apply 1 Application Both eyes QHS every night at bedtime Instill ~1 cm ribbon into affected eye 09/28/19 24 Inactive acetaminophen 500 mg tablet RxNorm: 304328 (MAX APAP:4GM/24HR) Take 1 Tablet(s) Oral TID as needed for pain 09/24/19 24 Inactive carvedilol 25 mg tablet RxNorm: 804358 Take 1 Tablet(s) Oral QD 09/08/19 24 No Stop Date Active pregabalin 100 mg capsule RxNorm: 087531 Take 1 Capsule(s) Oral QAM every morning 09/07/19 24 Inactive rosuvastatin 40 mg tablet RxNorm: 340994 Take 1 Tablet(s) Oral QPM every evening 07/13/19 24 No Stop Date Active ezetimibe 10 mg tablet RxNorm: 900091 Take 1 Tablet(s) Oral QD 07/13/19 24 No Stop Date Active bisacodyl 10 mg rectal suppository RxNorm: 090879 Insert 1 Suppository Rectal QD as needed 07/13/19 24 No Stop Date Active polyethylene glycol 3350 17 gram/dose oral powder RxNorm: 291721 Take 17 Gram(s) Oral BID as needed mix in 4-8ox water 07/13/19 24 No Stop Date Active ketoconazole 2 % shampoo RxNorm: 420413 Apply 1 Application Topical UD as directed 07/13/19 24 No Stop Date Active Ozempic 1 mg/dose (4 mg/3 mL) subcutaneous pen injector RxNorm: 3265173 Inject 1 Milligram(s) Subcutaneous QW once a week 07/13/19 24 No Stop Date Active Guaifenesin AC 10 mg-100 mg/5 mL oral liquid RxNorm: 955884 Take 10 Milliliter(s) Oral Q4H every four hours as needed 07/13/19 24 No Stop Date Active ammonium lactate 12 % topical cream RxNorm: 765259 Apply 1 Application Topical BID 07/13/19 24 No Stop Date Active hydrocortisone 2.5 % topical cream RxNorm: 893931 Apply 1 Application Topical BID as needed 07/13/19 No Stop Date Active rosuvastatin 20 mg sprinkle capsule RxNorm: 6801758 Take 1 Capsule(s) Oral QD 07/13/19 24 No Stop Date Active Vascepa 1 gram capsule RxNorm: 8882432 Take 2 Capsule(s) Oral BID 07/13/19 24 No Stop Date Active venlafaxine ER 75 mg capsule,extended release 24 hr RxNorm: 884660 Take 3 Capsule(s) Oral QD 07/13/19 24 No Stop Date Active aripiprazole 15 mg tablet RxNorm: 075168 Take 1/2 Tablet(s) Oral QD 07/13/19 24 024 Inactive isosorbide mononitrate ER 60 mg tablet,extended release 24 hr RxNorm: 940601 Take 1 Tablet(s) Oral QD 07/13/19 24 024 Inactive Basaglar KwikPen U-100 Insulin 100 unit/mL (3 mL) subcutaneous RxNorm: 9632652 Inject 30U SubQ twice daily 07/07/19 24 024 Inactive Please dispense one month supply. Basaglar KwikPen U-100 Insulin 100 unit/mL (3 mL) subcutaneous RxNorm: 7247003 Inject 30U SubQ twice daily 07/07/19 24 024 Inactive Please dispense one month supply. pregabalin 150 mg capsule RxNorm: 503783 Take 1 Capsule(s) Oral QHS every night at bedtime 07/05/19 24 024 Inactive pregabalin 150 mg capsule RxNorm: 609542 Take 1 Capsule(s) Oral QHS every night at bedtime 07/05/19 24 024 Inactive polyethylene glycol 3350 17 gram/dose oral powder RxNorm: 509115 Take 1 Packet Oral QD as needed (1 packet = 17g) mix with 4-8oz of liquid 06/15/19 24 024 Inactive bisacodyl 10 mg rectal suppository RxNorm: 130063 Insert one suppository per rectum once daily as needed for constipation 06/15/19 24 024 Inactive bisacodyl 10 mg rectal suppository RxNorm: 516983 Insert one suppository per rectum once daily as needed for constipation 06/15/19 024 Inactive pregabalin 100 mg capsule RxNorm: 214611 Take 1 Capsule(s) Oral QAM every morning 04/27/20 024 Inactive Levemir FlexPen 100 unit/mL (3 mL) solution subcutaneous insulin pen RxNorm: 895655 Inject 30 Unit(s) Subcutaneous BID 04/27/20 024 Inactive rosuvastatin 40 mg tablet RxNorm: 514969 Take 1 Tablet(s) Oral QPM every evening 04/16/20 024 Inactive D/C rosuvastatin 20mg venlafaxine ER 75 mg capsule,extended release 24 hr RxNorm: 171662 Take 3 Capsule(s) Oral QD 04/14/20 023 Inactive pregabalin 100 mg capsule RxNorm: 212894 Take 1 Capsule(s) Oral QAM every morning [...] strip clotrimazole 1 % topical cream RxNorm: 768102 Take apply topically to abdominal folds twice daily for 14 days 03/12/20 024 Inactive Ozempic 1 mg/dose (4 mg/3 mL) subcutaneous pen injector RxNorm: 0496550 Inject 1 Milligram(s) Subcutaneous QW once a week 03/11/20 23 023 Inactive rosuvastatin 20 mg tablet RxNorm: 829387 Take 1 Tablet(s) Oral QD 02/26/20 23 023 Inactive d/c pravastatin 80mg Ozempic 1 mg/dose (4 mg/3 mL) subcutaneous pen injector RxNorm: 5517419 Inject 1 Milligram(s) Subcutaneous QW once a week 02/20/20 23 023 Inactive pregabalin 150 mg capsule RxNorm: 987427 Take 1 Capsule(s) Oral HS at bed time 02/19/20 23 023 Inactive pregabalin 100 mg capsule RxNorm: 674832 Take 1 Capsule(s) Oral QAM every morning 02/18/20 23 023 Inactive venlafaxine ER 75 mg capsule,extended release 24 hr RxNorm: 137283 Take 3 Capsule(s) Oral QD 02/04/20 23 023 Inactive FreeStyle Chema 2 Sensor kit RxNorm: use as directed 02/04/20 23 023 Inactive FreeStyle Chema 2 Sensor kit RxNorm: use as directed 02/04/20 23 024 Inactive fluconazole 150 mg tablet RxNorm: 520395 Take 1 Tablet(s) Oral on day 3 and on day 6 02/03/20 23 024 Inactive chlorthalidone 25 mg tablet RxNorm: 941862 Take 1 Tablet(s) Oral QAM every morning 02/03/20 23 No Stop Date Active venlafaxine ER 150 mg capsule,extended release 24 hr RxNorm: 045420 Take 1 Capsule(s) Oral QD 02/03/20 23 023 Inactive acetaminophen 500 mg tablet RxNorm: 488424 1 TABLET ORALLY 3 TIMES DAILY (MAX APAP:4GM/24HR) 12/15/19 23 023 Inactive clotrimazole 1 % topical cream RxNorm: 291167 apply 1g topically to top of feet and in between toes BID 12/09/19 23 023 Inactive potassium chloride ER 20 mEq tablet,extended release RxNorm: 378081 Take 1 Tablet(s) Oral BID 12/09/19 23 024 Inactive d/c 20mEq once daily (sent from hospital) nystatin 100,000 unit/gram topical powder RxNorm: 663070 APPLY TO AFFECTED AREAS TOPICALLY 2 TIMES DAILY 11/21/19 23 023 Inactive Nystop 100,000 unit/gram topical powder RxNorm: 424380 Apply to abd folds, under breasts and L side of groin Topical BID x 14 days, then BID PRN 11/20/19 023 Inactive dx: yeast dermatitis [place] Ultra Strength 4 %-30 %-10 % topical cream RxNorm: 691097 Apply 1 Gram(s) Topical QID PRN to feet and legs for neuropathic pain 11/11/19 024 Inactive clotrimazole 1 % topical cream RxNorm: 423952 Apply 1/2 Gram(s) Topical BID Apply to affected areas of groin, periarea, and abdominal topically 2 times daily 11/10/19 023 Inactive hydrocortisone 2.5 % topical cream RxNorm: 845389 Apply 1/2 Gram(s) Topical BID as needed 11/10/19 024 Inactive Levemir FlexPen 100 unit/mL (3 mL) solution subcutaneous insulin pen RxNorm: 038080 Inject 30 Unit(s) Subcutaneous BID 10/07/19 023 Inactive Humulin R U-500 (Concentrated) Insulin 500 unit/mL subcutaneous soln RxNorm: 477849 Inject 100 Unit(s) Subcutaneous TID 10/07/19 024 Inactive Ozempic 0.25 mg or 0.5 mg (2 mg/3 mL) subcutaneous pen injector RxNorm: 5646646 Inject 1/2 Milligram(s) Subcutaneous QW once a week 10/07/19 024 Inactive aripiprazole 15 mg tablet RxNorm: 911489 1/2 TAB (7.5MG) ORALLY DAILY (DX:MAJOR DEPRESSIVE DISORDER) 09/23/19 023 Inactive Accu-Chek Guide test strips RxNorm: Use 1 Test Strip QID 09/15/19 023 Inactive ok to substitute with any covered alternative test strip Lancets,Thin 28 gauge RxNorm: Use 1 as directed QID 09/15/19 23 023 Inactive torsemide 20 mg tablet RxNorm: 859264 Take 1 Tablet(s) Oral BID 09/09/19 024 Inactive d/c once daily dosing carvedilol 25 mg tablet RxNorm: 792410 Take 1 Tablet(s) Oral QD 08/25/19 024 Inactive pregabalin 150 mg capsule RxNorm: 382681 1 Capsule(s) Oral HS at bed time 08/18/19 23 023 Inactive pregabalin 100 mg capsule RxNorm: 343728 1 Capsule(s) Oral QAM every morning 08/18/19 23 023 Inactive carvedilol 25 mg tablet RxNorm: 004830 1 Tablet(s) Oral QD 07/28/19 23 023 Inactive lisinopril 20 mg tablet RxNorm: 088944 Give 1 Tablet(s) Oral QD 07/28/19 23 023 Inactive Lyrica 150 mg capsule RxNorm: 512807 Take 1 Capsule(s) Oral QHS every night at bedtime 07/19/19 023 Inactive d/c 100mg dose Diflucan 150 mg tablet RxNorm: 927992 Take 1 Tablet(s) Oral QD repeat on day 3 and 6 07/19/19 023 Inactive pregabalin 100 mg capsule RxNorm: 512432 Take 1 Capsule(s) Oral QAM every morning 07/19/19 23 023 Inactive gatifloxacin 0.5 % eye drops RxNorm: 873278 Instill 1 Drop(s) as directed TID Instill 1 drop in to affected eye(s) starting 1 day prior to surgery and continue until gone (do not exceed 4 weeks). 07/13/19 23 023 Inactive carvedilol 25 mg tablet RxNorm: 307495 2 Tablet(s) Oral BID 07/13/19 23 023 Inactive Humulin R Regular U-100 Insulin 100 unit/mL injection solution RxNorm: 393776 85 Unit(s) Injection TID 07/13/19 23 023 Inactive ketorolac 0.5 % eye drops RxNorm: 426783 Instill 1 Drop(s) as directed QID Instill 1 drop into affected eye(s) 4 times daily starting 1 day prior to surgery and continue until gone (do not exceed 4 weeks). 07/13/19 23 023 Inactive Diflucan 150 mg tablet RxNorm: 770248 Take 1 Tablet(s) Oral QD repeat on day 3 and 6 06/30/19 023 Inactive Accu-Chek Guide test strips RxNorm: Use 1 Test Strip QID Use 1 test strip to monitor blood glucose 4 times daily and as needed. Dx:E11.42. 06/23/19 023 Inactive ok to substitute with any covered alternative test strip dextromethorphan-gu aifenesin 10 mg-100 mg/5 mL oral liquid RxNorm: 164983 Take 10 Milliliter(s) Oral every 4 hours as needed for cough 06/19/19 023 Inactive dextromethorphan-gu aifenesin 10 mg-100 mg/5 mL oral liquid RxNorm: 354870 Take 10 Milliliter(s) Oral every 4 hours as needed for cough 06/19/19 023 Inactive Lyrica 150 mg capsule RxNorm: 455601 Take 1 Capsule(s) Oral QHS every night at bedtime 06/18/19 023 Inactive d/c 100mg dose aripiprazole 15 mg tablet RxNorm: 434577 1/2 TAB (7.5MG) ORALLY DAILY (DX:MAJOR DEPRESSIVE DISORDER) 06/05/19 023 Inactive pregabalin 100 mg capsule RxNorm: 833443 1 Capsule(s) Oral QAM every morning 06/02/19 023 Inactive Banophen 50 mg capsule RxNorm: 6845046 Take 1 Capsule(s) Oral Q6H every 6 hours as needed 05/19/19 23 No Stop Date Active Novolog Flexpen U-100 Insulin aspart 100 unit/mL (3 mL) subcutaneous RxNorm: 9476149 Inject 10 Unit(s) Subcutaneous QHS every night at bedtime with nighttime snack 04/08/20 22 022 Inactive Novolog Flexpen U-100 Insulin aspart 100 unit/mL (3 mL) subcutaneous RxNorm: 7945570 Inject 42 Unit(s) Subcutaneous TID in addition to sliding scale 04/08/20 022 Inactive d/c 36u albuterol sulfate HFA 90 mcg/actuation aerosol inhaler RxNorm: 6039027 Take 2 Puff(s) Inhalation Q4H every four hours as needed as needed for SOB, cough, or wheezing 04/07/20 030 Active Banophen 50 mg capsule RxNorm: 9632369 Take 1 Capsule(s) Oral Q6H every 6 hours as needed 04/06/20 023 Inactive diphenhydramine 50 mg tablet RxNorm: 4028543 Take 1 Tablet(s) Oral Q6H every 6 hours as needed 04/06/20 022 Inactive diphenhydramine 50 mg tablet RxNorm: 6274686 1 Tablet(s) Oral Q6H every 6 hours as needed 04/06/20 022 Inactive Abilify 15 mg tablet RxNorm: 891121 1/2 Tablet(s) Oral QD 03/10/20 023 Inactive Shingrix (PF) 50 mcg/0.5 mL intramuscular suspension, kit RxNorm: 5504053 Administer 1/2 Milliliter(s) Intramuscular QD one time shingrix step 2 ( step 1 given 11/04/21) WITH needle - Nursing please administer upon arrival and once administered post a bridge message with date of administration, safety consultant, expiration date, and lot# so we can update [facility] 02/18/20 22 022 Inactive dispense with needle Shingrix (PF) 50 mcg/0.5 mL intramuscular suspension, kit RxNorm: 4729239 Administer 1/2 Milliliter(s) Intramuscular QD one time shingrix step 2 ( step 1 given 11/04/21) WITH needle - Nursing please administer upon arrival and once administered post a bridge message with date of administration, safety consultant, expiration date, and lot# so we can update [facility] 02/18/20 22 022 Inactive dispense with needle polyethylene glycol 3350 17 gram/dose oral powder RxNorm: 903305 Take 17=1 capful Gram(s) Oral QD mix with 4-8oz of liquid 01/08/20 22 023 Inactive take this in addition to BID prn order Lyrica 100 mg capsule RxNorm: 036208 Take 1 Capsule(s) Oral QAM every morning 01/08/20 22 022 Inactive d/c 50mg dose acetaminophen 500 mg tablet RxNorm: 418367 Take 1 Tablet(s) Oral TID 01/08/20 22 022 Inactive d/c PRN order Lyrica 150 mg capsule RxNorm: 246778 Take 1 Capsule(s) Oral QHS every night at bedtime 01/08/20 22 023 Inactive d/c 100mg dose Abilify 5 mg tablet RxNorm: 739867 Take 1 Tablet(s) Oral QD take 1 tab po QD #30 refill 5 dx: MDD 12/12/19 22 022 Inactive Abilify 5 mg tablet RxNorm: 912451 Take 1 Tablet(s) Oral QD take 1 tab po QD #30 refill 5 dx: MDD 12/12/19 22 022 Inactive Novolog Flexpen U-100 Insulin aspart 100 unit/mL (3 mL) subcutaneous RxNorm: 2536782 Inject 42 Unit(s) Subcutaneous TID in addition to sliding scale 12/10/19 22 022 Inactive d/c 36u chlorthalidone 25 mg tablet RxNorm: 982862 Take 1 Tablet(s) Oral QAM every morning 12/10/19 22 023 Inactive pregabalin 50 mg capsule RxNorm: 093299 Take 1 Capsule(s) Oral QAM every morning 11/12/19 22 022 Inactive tetanus-diphtheria toxoids-Td 2 Lf unit-2 Lf unit/0.5 mL IM suspension RxNorm: 139 Take 0.5 Miscellaneous Intramuscular 11/12/19 22 022 Inactive need tdap - nursing to administer upon arrival pregabalin 50 mg capsule RxNorm: 878334 Take 1 Capsule(s) Oral QAM every morning 10/16/19 22 022 Inactive pregabalin 50 mg capsule RxNorm: 778918 Take 1 Capsule(s) Oral QAM every morning 10/16/19 22 022 Inactive pregabalin 50 mg capsule RxNorm: 158314 1 Capsule(s) Oral QAM every morning 10/15/19 22 022 Inactive Shingrix (PF) 50 mcg/0.5 mL intramuscular suspension, kit RxNorm: 4218650 Administer 1/2 Milliliter(s) Intramuscular one time Nursing please administer upon arrival and once administered post a bridge message with date of administration, safety consultant, expiration date, and lot# so we can update [facility]. 10/09/19 22 022 Inactive shingrix step 1 Shingrix (PF) 50 mcg/0.5 mL intramuscular suspension, kit RxNorm: 9337036 Administer 1/2 Milliliter(s) Intramuscular one time Nursing please administer upon arrival and once administered post a bridge message with date of administration, safety consultant, expiration date, and lot# so we can update [facility]. 10/09/19 22 022 Inactive shingrix step 1 cholecalciferol (vitamin D3) 1,250 mcg (50,000 unit) capsule RxNorm: 716776 Take 1 Capsule(s) Oral QW once a [...] aspart 100 unit/mL (3 mL) subcutaneous RxNorm: 3732875 Inject 10 Unit(s) Subcutaneous QHS every night at bedtime with nighttime snack 10/08/19 22 022 Inactive Shingrix (PF) 50 mcg/0.5 mL intramuscular suspension, kit RxNorm: 8907543 ADMINISTER 2-DOSE SERIES PER CDC GUIDELINES 10/08/19 22 022 Active Shingrix (PF) 50 mcg/0.5 mL intramuscular suspension, kit RxNorm: 8325451 ADMINISTER 2-DOSE SERIES PER CDC GUIDELINES 10/08/19 22 022 Inactive Novolog Flexpen U-100 Insulin aspart 100 unit/mL (3 mL) subcutaneous RxNorm: 7946023 Inject 36 Unit(s) Subcutaneous TID in addition to sliding scale 10/08/19 Inactive Novofine Autocover 30 gauge x 1/3 needle RxNorm: Use 1 Miscellaneous UD as directed Use 1 needle as directed to administer insulin 5 times a day Dx:E11.42. 10/03/19 22 Inactive ok to substitute with any covered alternative pen needle benzoyl peroxide 10 % topical cleanser RxNorm: 575963 Apply 1 Application Topical QD apply to face, wash rinse and dry once daily (may change to QOD if drying) 08/19/19 022 Inactive (%covered by insurance) #60ml refill 11 dx: acne benzoyl peroxide 10 % topical cleanser RxNorm: 740972 Apply 1 Application Topical QD apply to face, wash rinse and dry once daily (may change to QOD if drying) 08/19/19 022 Inactive (%covered by insurance) #60ml refill 11 dx: acne benzoyl peroxide 10 % topical cleanser RxNorm: 862986 Apply 1 Application Topical QD apply to face, wash rinse and dry once daily (may change to QOD if drying) 08/19/19 022 Inactive (%covered by insurance) #60ml refill 11 dx: acne Lyrica 50 mg capsule RxNorm: 325946 Take 1 Capsule(s) Oral QAM every morning Take 1 capsule by mouth once daily 08/19/19 22 022 Inactive benzoyl peroxide 10 % topical cleanser RxNorm: 911598 Apply 1 Application Topical QD apply to face, wash rinse and dry once daily (may change to QOD if drying) 08/19/19 022 Inactive (%covered by insurance) #60ml refill 11 dx: acne Lyrica 100 mg capsule RxNorm: 897168 Take 1 Capsule(s) Oral QHS every night at bedtime Take 1 capsule by mouth once daily at bedtime 08/19/19 22 022 Inactive Lyrica 100 mg capsule RxNorm: 754888 Take 1 Capsule(s) Oral QHS every night at bedtime Take 1 capsule by mouth once daily at bedtime 08/16/19 22 022 Inactive Lyrica 50 mg capsule RxNorm: 875702 Take 1 Capsule(s) Oral QAM every morning Take 1 capsule by mouth once daily 08/16/19 22 022 Inactive Levemir FlexTouch U-100 Insulin 100 unit/mL (3 mL) subcutaneous pen RxNorm: 698621 Inject 86 Unit(s) Subcutaneous BID 08/05/19 22 022 Inactive d/c 83units BID Lyrica 100 mg capsule RxNorm: 415767 Take 1 Capsule(s) Oral QHS every night at bedtime Take 1 capsule by mouth once daily at bedtime 07/14/19 22 022 Inactive Lyrica 50 mg capsule RxNorm: 657120 Take 1 Capsule(s) Oral QAM every morning Take 1 capsule by mouth once daily 07/14/19 22 022 Inactive Levemir FlexTouch U-100 Insulin 100 unit/mL (3 mL) subcutaneous pen RxNorm: 070288 Inject 83 Unit(s) Subcutaneous BID 07/08/19 22 [...] test strip hydralazine 50 mg tablet RxNorm: 031207 Take 1 Tablet(s) Oral QID 05/05/20 21 022 Inactive venlafaxine ER 225 mg tablet,extended release 24 hr RxNorm: 084149 Take 1 Tablet(s) Oral QD 05/05/20 21 021 Inactive venlafaxine ER 225 mg tablet,extended release 24 hr RxNorm: 375683 Take 1 Tablet(s) Oral QD 05/05/20 022 Inactive isosorbide mononitrate ER 30 mg tablet,extended release 24 hr RxNorm: 621317 Take 1 Tablet(s) Oral QD 05/05/20 024 Inactive hydralazine 50 mg tablet RxNorm: 928744 Take 1 Tablet(s) Oral QID 05/05/20 21 Inactive aspirin 81 mg tablet,delayed release RxNorm: 985449 Take 1 Tablet(s) Oral QD 03/31/20 022 Inactive Vitamin D2 1,250 mcg (50,000 unit) capsule RxNorm: 8273488 Take 1 Capsule(s) Oral QW once a week x 12 weeks 03/31/20 022 Inactive Vitamin D2 1,250 mcg (50,000 unit) capsule RxNorm: 1089030 Take 1 Capsule(s) Oral QW once a week 03/31/20 021 Inactive Zetia 10 mg tablet RxNorm: 248233 Take 1 Tablet(s) Oral QD 03/31/20 024 Inactive Zetia 10 mg tablet RxNorm: 741322 Take 1 Tablet(s) Oral QD 03/31/20 21 021 Inactive hydralazine 25 mg tablet RxNorm: 663770 Take 1 Tablet(s) Oral QID 03/31/20 21 021 Inactive hydralazine 25 mg tablet RxNorm: 035443 Take 1 Tablet(s) Oral QID 03/31/20 021 Inactive hydralazine 10 mg tablet RxNorm: 231730 Take 1 Tablet(s) Oral QID 03/03/20 021 Inactive cephalexin 500 mg tablet RxNorm: 056090 Take 1 Tablet(s) Oral QID 02/27/20 021 Inactive cephalexin 500 mg tablet RxNorm: 438050 Take 1 Tablet(s) Oral QID 02/27/20 021 Inactive lisinopril 40 mg tablet RxNorm: 749743 Take 1 Tablet(s) Oral QD 02/11/20 023 Inactive Eliquis 5 mg tablet RxNorm: 7162732 Take 1 Tablet(s) Oral BID 01/05/20 21 022 Inactive Eliquis 5 mg tablet RxNorm: 5479736 Take 2 Tablet(s) Oral QD 01/01/20 21 021 Inactive Lyrica 50 mg capsule RxNorm: 579845 Take 1 Capsule(s) Oral QAM every morning 12/24/19 21 021 Inactive Lyrica 100 mg capsule RxNorm: 053572 Take 1 Capsule(s) Oral QHS every night at bedtime 12/24/19 021 Inactive clotrimazole 1 % topical cream RxNorm: 555035 Apply to right foot and toes Topical BID 12/04/19 21 023 Inactive metoprolol succinate ER 200 mg tablet,extended release 24 hr RxNorm: 795280 Take 1 Tablet(s) Oral QD 12/04/19 21 023 Inactive ciprofloxacin 500 mg tablet RxNorm: 777635 Take 1 Tablet(s) Oral QD 11/30/19 21 021 Inactive DX ofloxacin otic drops Accu-Chek Guide test strips RxNorm: USE 1 TO CHECK GLUCOSE 4 TIMES DAILY AND NEEDED 11/15/19 21 023 Inactive Blood Glucose Test strips RxNorm: Use 1 Test Strip QID at PRN 11/05/19 21 023 Inactive E11.42 lisinopril 30 mg tablet RxNorm: 322829 Take 1 Tablet(s) Oral QD 10/30/19 21 021 Inactive lisinopril 20 mg tablet RxNorm: 369138 Take 1 Tablet(s) Oral QD 10/23/19 21 021 Inactive lisinopril 20 mg tablet RxNorm: 897120 Take 1 Tablet(s) Oral QD 10/23/19 21 021 Inactive lisinopril 10 mg tablet RxNorm: 386916 Take 1 Tablet(s) Oral QD 10/02/19 021 Inactive icosapent ethyl 1 gram capsule RxNorm: 9627930 Take 2 Capsule(s) (2 gm) Oral BID with meals 09/12/19 21 024 Inactive Okay to dispense one 2gm tab if you have that available. icosapent ethyl 1 gram capsule RxNorm: 3407889 Take 2 Capsule(s) Oral BID 09/12/19 21 021 Inactive Okay to dispense one 2gm tab if you have that available. amlodipine 10 mg tablet RxNorm: 519468 Take 1 Tablet(s) Oral QD 09/04/19 022 Inactive aspirin 81 mg tablet,delayed release RxNorm: 754507 Take 1 Tablet(s) Oral QD 09/04/19 21 021 Inactive Levemir FlexTouch U-100 Insulin 100 unit/mL (3 mL) subcutaneous pen RxNorm: 449562 Inject 150 Unit(s) Subcutaneous BID 09/04/19 21 022 Inactive venlafaxine ER 150 mg tablet,extended release 24 hr RxNorm: 614299 Take 1 Tablet(s) Oral QD 09/04/19 21 021 Inactive clotrimazole-betame thasone 1 %-0.05 % topical cream RxNorm: 052099 Apply to rash on red area on left abdomen/chest Topical BID 08/10/19 21 021 Inactive amlodipine 5 mg tablet RxNorm: 558846 Take 1 Tablet(s) Oral QD 07/31/19 Inactive cephalexin 500 mg tablet RxNorm: 592508 Take 1 Tablet(s) Oral BID BID - Twice Daily 07/31/19 Inactive Start 08/01/20 pantoprazole 40 mg tablet,delayed release RxNorm: 846498 Take 1 Tablet(s) Oral QAM every morning 07/08/19 Inactive senna 8.6 mg tablet RxNorm: 753442 Take 1 Tablet(s) Oral QD 07/08/19 022 Inactive carbamazepine 200 mg tablet RxNorm: 398356 Take 1 Tablet(s) Oral BID 07/08/19 Inactive clopidogrel 75 mg tablet RxNorm: 755157 Take 1 Tablet(s) Oral QD 07/08/19 021 Inactive Blood Glucose Test strips RxNorm: Use 1 Test Strip QID at PRN 07/08/19 Inactive E11.42 Novolog Flexpen U-100 Insulin aspart 100 unit/mL (3 mL) subcutaneous RxNorm: 2474132 Administer per sliding scale Milliliter(s) Subcutaneous TID 151-200: 10 u; 201-250: 20 u; 251-300: 30 u; 301-350: 40 u; 351-400: 50 u. 07/08/19 Inactive lisinopril 5 mg tablet RxNorm: 975068 Take 1 Tablet(s) Oral QD 07/08/19 Inactive Novolog Flexpen U-100 Insulin aspart 100 unit/mL (3 mL) subcutaneous RxNorm: 0718825 Inject 85 Unit(s) Subcutaneous TID 07/08/19 022 Inactive pravastatin 80 mg tablet RxNorm: 765333 Take 1 Tablet(s) Oral QHS every night at bedtime 07/08/19 023 Inactive clotrimazole 1 % topical cream RxNorm: 475769 Apply to bilateral groin areas Topical BID 07/08/19 21 022 Inactive metoprolol succinate ER 200 mg tablet,extended release 24 hr RxNorm: 972873 Take 1 Tablet(s) Oral QD 07/08/19 21 021 Inactive Vitamin D3 25 mcg (1,000 unit) tablet RxNorm: 691310 Take 1 Tablet(s) Oral QD 07/08/19 Inactive isosorbide dinitrate 30 mg tablet RxNorm: 737527 Take 1 Tablet(s) Oral QD 07/08/19 021 Inactive Levemir FlexTouch U-100 Insulin 100 unit/mL (3 mL) subcutaneous pen RxNorm: 628850 Inject 140 Unit(s) Subcutaneous BID 07/08/19 021 Inactive torsemide 20 mg tablet RxNorm: 124476 Take 1 Tablet(s) Oral QD 07/08/19 023 Inactive venlafaxine 75 mg tablet RxNorm: 580042 Take 1 Tablet(s) Oral QD 07/08/19 021 Inactive acetaminophen 500 mg tablet RxNorm: 596199 Take 1 Tablet(s) Oral TID as needed for headache 06/18/19 021 Inactive acetaminophen 500 mg tablet RxNorm: 369658 Take 1 Tablet(s) Oral TID as needed for headache 06/18/19 021 Inactive Lyrica 100 mg capsule RxNorm: 621266 Take 1 Capsule(s) Oral QHS every night at bedtime 06/11/19 021 Inactive Lyrica 50 mg capsule RxNorm: 975546 Take 1 Capsule(s) Oral QAM every morning 06/10/19 021 Inactive hydrocortisone 2.5 % topical cream RxNorm: 510901 Apply to bilateral groin creases Topical BID 05/15/20 20 021 Inactive clotrimazole 1 % topical cream RxNorm: 124928 Apply to bilateral groin areas Topical BID 05/15/20 20 021 Inactive Lyrica 50 mg capsule RxNorm: 486189 Take 1 Capsule(s) Oral QAM every morning 05/14/20 20 020 Inactive Lyrica 100 mg capsule RxNorm: 367009 Take 1 Capsule(s) Oral QHS every night [...] Inactive Nystop 100,000 unit/gram topical powder RxNorm: 310432 Apply to abd folds, under breasts and L side of groin Topical BID x 14 days, then BID PRN 04/08/20 20 Inactive dx: yeast dermatitis Lyrica 100 mg capsule RxNorm: 839793 Take 1 Capsule(s) Oral QHS every night at bedtime 03/13/20 20 Inactive Lyrica 50 mg capsule RxNorm: 297598 Take 1 Capsule(s) Oral QAM every morning 03/13/20 20 Inactive ketoconazole 2 % shampoo RxNorm: 326614 Apply Topical two times a week with showers 03/11/20 20 Inactive cholecalciferol (vitamin D3) 50 mcg (2,000 unit) tablet RxNorm: 992732 Take 1 Tablet(s) Oral QD 03/11/20 20 021 Inactive Zetia 10 mg tablet RxNorm: 288189 Take 1 Tablet(s) Oral QD 03/07/20 20 021 Inactive Zetia 10 mg tablet RxNorm: 555624 Take 1 Tablet(s) Oral QD 03/07/20 20 020 Inactive Lyrica 50 mg capsule RxNorm: 081355 Take 1 Capsule(s) Oral QAM every morning 02/15/20 20 Inactive Lyrica 100 mg capsule RxNorm: 086465 Take 1 Capsule(s) Oral QHS every night at bedtime 02/15/20 20 Inactive Lyrica 100 mg capsule RxNorm: 091110 Take 1 Capsule(s) Oral QHS every night at bedtime 02/15/20 20 020 Inactive Lyrica 50 mg capsule RxNorm: 788049 Take 1 Capsule(s) Oral QAM every morning 02/15/20 Inactive metoprolol succinate ER 200 mg tablet,extended release 24 hr RxNorm: 751564 Take 1 Tablet(s) Oral QD 08/12/19 23 Active loperamide 2 mg capsule RxNorm: 328908 Take 1 Capsule(s) Oral QID as needed 06/12/19 22 Active hydralazine 50 mg tablet RxNorm: 054719 Take 1 Tablet(s) Oral QID 08/12/19 23 Active Soft Touch Lancets RxNorm: miscellaneous 03/04/20 24 Active venlafaxine ER 75 mg capsule,extended release 24 hr RxNorm: 739613 Take 3 Capsule(s) Oral QD 06/12/19 22 023 Inactive polyethylene glycol 3350 17 gram/dose oral powder RxNorm: 881951 Take 17=1 capful Gram(s) Oral BID as needed mix with 4-8oz of liquid 06/12/19 22 024 Inactive icosapent ethyl 1 gram capsule RxNorm: 5645462 Take 2 Capsule(s) (2 gm) Oral BID with meals 10/07/19 23 023 Inactive Okay to dispense one 2gm tab if you have that available. Levemir FlexTouch U-100 Insulin 100 unit/mL (3 mL) subcutaneous pen RxNorm: 135944 Inject 80 Unit(s) Subcutaneous BID 07/14/19 23 023 Inactive Novolog Flexpen U-100 Insulin aspart 100 unit/mL (3 mL) subcutaneous RxNorm: 7417944 Insert 30 Unit(s) Subcutaneous TID with meals [...] Date Referral: [facility] WPtel: [address] [id number] [place] Referral Records Received 09/21/2022 Referral: [facility]el: [address] [id number] [place] Referral Completed 05/28/2021 Referral: General Cardiology [...] [facility] to have closer nursing attention.??Sister Jyotsna involved in his care cell# [phone]??Guardian: Giulia (tapan met in person 09/01/21), now [...]
--- OUTSIDE RECORDS SUMMARY | 2024-03-09 03:24 | XMS_ITS | Clinical Summary ---
Author Organization [facility] Address [address] [place] [address] Phone Care Team Providers Care Quality Control Supervisor Name Role Phone Mellisa Shirley PA-C Primary Care Provider [phone] Allergies Active Allergy Reactions Criticality Noted Date [...] 2 Active cholecalciferol (VITAMIN D-3) 1.25 MG (73480 UT) capsule Take 1,250 mcg by mouth [...] topic Insurance MEDICAID [place] MEDICARE Care Teams Quality Control Supervisor Relationship Specialty Start Date End Date Mellisa Shirley PA-C PCP - General Physician E Learning Manager 08/31/22
--- OUTSIDE RECORDS SUMMARY | 2024-03-09 03:24 | XMS_ITS | CCD ---
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 Primary Care Provider Leona vailable Arpit ARLENParker [facility] U navailable Summary Purpose DataExchange Insurance Providers Payer name Policy type / Coverage type Covered green party ID Effective Begin Date Effective End Date [place] Part B [id number] Unknown Unknown [place] Part B [id number] Unknown Unknown Family history Sister Brittany Suggs Diagnosis Age At Onset No Family Disease Entered N/A Runs in the family Diagnosis Age At Onset No Known Diseases N/A Sister Blanka Mcduffie Diagnosis Age At Onset No Family Disease Entered N/A Social History Social History Element Codes Description Effec tive Dates Tobacco history SNOMED CT: 490883275 Never smoker 01/16 Sexually Active? Unknown No [...] Single 10/07/2021 Living arrangements Unknown Shelter 09/03/[address]: 300023631 No Alcohol Consum ption 09/02/2020 Allergies, Adverse Reactions, Alerts Substance Reaction Codes Entered Date Inactivated Date Status * NO KNOWN FOOD ALLERGIES Unknown 07/13/2023 No Inactive Date Active LISINOPRIL RxNorm: 64889 02/12/2020 No Inactive Da te Active Metformin [...] E78. 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 Other half-way (current) dr ug therapy ICD-10: Z79.899 ICD-9: [...] 09/07/2023 Resolved Coronary artery disease invo lving [place] [...] Insulin 100 unit/mL (3 mL) subcutaneous RxNorm: 4594516 Inject 40 Unit(s) Subcutaneous BID 03/07/20 Active Please dispense one month supply. Humulin R U-500 (Concentrated) Insulin 500 unit/mL subcutaneous soln RxNorm: 797377 Inject 100 Unit(s) Subcutaneous AC before meals [...] PRN) to be use with new Accu [place] meter 03/04/20 Inactive ok to substitute with any covered alternative test strip nystatin 100,000 unit/gram topical powder RxNorm: 577077 Apply 1 Application Topical BID as needed [...] (Concentrated) Insulin 500 unit/mL subcutaneous soln RxNorm: 576912 Inject 100 Unit(s) Subcutaneous TID 02/17/20 24 024 Inactive Humulin R U-500 (Concentrated) Insulin 500 unit/mL subcutaneous soln RxNorm: 192391 Inject 100 Unit(s) Subcutaneous TID 02/10/20 24 024 Inactive Basaglar KwikPen U-100 Insulin 100 unit/mL (3 mL) subcutaneous RxNorm: 6983276 Inject 30 Unit(s) Subcutaneous BID 02/10/20 024 Inactive Please dispense one month supply. pregabalin 100 mg capsule RxNorm: 532970 Take 1 Capsule(s) Oral QAM every morning 02/07/20 24 024 Active isosorbide mononitrate ER 60 mg tablet,extended release 24 hr RxNorm: 606475 Take 1 Tablet(s) Oral QD 02/01/20 24 025 Active aripiprazole 15 mg tablet RxNorm: 513059 Take 1/2 Tablet(s) Oral QD 02/01/20 24 025 Active torsemide 20 mg tablet RxNorm: 957245 1 TAB ORALLY DAILY (DX: EDEMA) 01/27/20 No Stop Date Active potassium chloride ER 20 mEq tablet,extended release(part/cryst) RxNorm: 6028111 2 TABS (40MEQ) ORALLY TWICE DAILY (DX: HYPOKALEMIA) 01/27/20 No Stop Date Active cephalexin 500 mg capsule RxNorm: 410088 Take 1 Capsule(s) Oral QID 12/17/19 24 024 Inactive cephalexin 500 mg capsule RxNorm: 951357 Take 1 Capsule(s) Oral QID 12/17/19 24 024 Inactive acetaminophen 500 mg tablet RxNorm: 267232 (MAX APAP:4GM/24HR) Take 1 Tablet(s) Oral TID as needed for pain 12/10/19 24 024 Active torsemide 20 mg tablet RxNorm: 261350 Take 1 Tablet(s) Oral QD 10/26/19 24 [...] %-0.3 % drops in a dropperette RxNorm: 137990 Apply 1-2 Drop(s) Both eyes BID as needed 09/28/19 24 Active erythromycin 5 mg/gram (0.5 %) eye ointment RxNorm: 268665 Apply 1 Application Both eyes QHS every night at bedtime Instill ~1 cm ribbon into affected eye 09/28/19 24 Inactive Artificial Tears (PF) 0.1 %-0.3 % drops in a dropperette RxNorm: 673240 Apply 1-2 Drop(s) Both eyes BID as needed 09/28/19 24 Inactive erythromycin 5 mg/gram (0.5 %) eye ointment RxNorm: 656846 Apply 1 Application Both eyes QHS every night at bedtime Instill ~1 cm ribbon into affected eye 09/28/19 24 Inactive acetaminophen 500 mg tablet RxNorm: 401712 (MAX APAP:4GM/24HR) Take 1 Tablet(s) Oral TID as needed for pain 09/24/19 Inactive carvedilol 25 mg tablet RxNorm: 383414 Take 1 Tablet(s) Oral QD 09/08/19 24 No Stop Date Active pregabalin 100 mg capsule RxNorm: 564301 Take 1 Capsule(s) Oral QAM every morning 09/07/19 24 024 Inactive rosuvastatin 40 mg tablet RxNorm: 635823 Take 1 Tablet(s) Oral QPM every evening 07/13/19 24 No Stop Date Active ezetimibe 10 mg tablet RxNorm: 530588 Take 1 Tablet(s) Oral QD 07/13/19 24 No Stop Date Active bisacodyl 10 mg rectal suppository RxNorm: 623267 Insert 1 Suppository Rectal QD as needed 07/13/19 24 No Stop Date Active polyethylene glycol 3350 17 gram/dose oral powder RxNorm: 956966 Take 17 Gram(s) Oral BID as needed mix in 4-8ox water 07/13/19 24 No Stop Date Active ketoconazole 2 % shampoo RxNorm: 434433 Apply 1 Application Topical UD as directed 07/13/19 24 No Stop Date Active Ozempic 1 mg/dose (4 mg/3 mL) subcutaneous pen injector RxNorm: 3020855 Inject 1 Milligram(s) Subcutaneous QW once a week 07/13/19 24 No Stop Date Active Guaifenesin AC 10 mg-100 mg/5 mL oral liquid RxNorm: 643147 Take 10 Milliliter(s) Oral Q4H every four hours as needed 07/13/19 24 No Stop Date Active ammonium lactate 12 % topical cream RxNorm: 904356 Apply 1 Application Topical BID 07/13/19 24 No Stop Date Active hydrocortisone 2.5 % topical cream RxNorm: 943548 Apply 1 Application Topical BID as needed 07/13/19 24 No Stop Date Active rosuvastatin 20 mg sprinkle capsule RxNorm: 7926360 Take 1 Capsule(s) Oral QD 07/13/19 24 No Stop Date Active Vascepa 1 gram capsule RxNorm: 3118439 Take 2 Capsule(s) Oral BID 07/13/19 24 No Stop Date Active venlafaxine ER 75 mg capsule,extended release 24 hr RxNorm: 054775 Take 3 Capsule(s) Oral QD 07/13/19 24 No Stop Date Active aripiprazole 15 mg tablet RxNorm: 120637 Take 1/2 Tablet(s) Oral QD 07/13/19 24 024 Inactive isosorbide mononitrate ER 60 mg tablet,extended release 24 hr RxNorm: 186483 Take 1 Tablet(s) Oral QD 07/13/19 24 024 Inactive Basaglar KwikPen U-100 Insulin 100 unit/mL (3 mL) subcutaneous RxNorm: 1989602 Inject 30U SubQ twice daily 07/07/19 24 024 Inactive Please dispense one month supply. Tusharagldestin MendenhallPen U-100 Insulin 100 unit/mL (3 mL) subcutaneous RxNorm: 4452567 Inject 30U SubQ twice daily 07/07/19 24 024 Inactive Please dispense one month supply. pregabalin 150 mg capsule RxNorm: 430864 Take 1 Capsule(s) Oral QHS every night at bedtime 07/05/19 24 024 Inactive pregabalin 150 mg capsule RxNorm: 116233 Take 1 Capsule(s) Oral QHS every night at bedtime 07/05/19 24 024 Inactive polyethylene glycol 3350 17 gram/dose oral powder RxNorm: 099056 Take 1 Packet Oral QD as needed (1 packet = 17g) mix with 4-8oz of liquid 06/15/19 24 024 Inactive bisacodyl 10 mg rectal suppository RxNorm: 155868 Insert one suppository per rectum once daily as needed for constipation 06/15/19 24 024 Inactive bisacodyl 10 mg rectal suppository RxNorm: 303541 Insert one suppository per rectum once daily as needed for constipation 06/15/19 24 024 Inactive pregabalin 100 mg capsule RxNorm: 747861 Take 1 Capsule(s) Oral QAM every morning 04/27/20 23 024 Inactive Levemir FlexPen 100 unit/mL (3 mL) solution subcutaneous insulin pen RxNorm: 737569 Inject 30 Unit(s) Subcutaneous BID 04/27/20 23 024 Inactive rosuvastatin 40 mg tablet RxNorm: 057347 Take 1 Tablet(s) Oral QPM every evening 04/16/20 23 024 Inactive D/C rosuvastatin 20mg venlafaxine ER 75 mg capsule,extended release 24 hr RxNorm: 867501 Take 3 Capsule(s) Oral QD 04/14/20 23 023 Inactive pregabalin 100 mg capsule RxNorm: 150632 Take 1 Capsule(s) Oral QAM every morning [...] strip clotrimazole 1 % topical cream RxNorm: 531747 Take apply topically to abdominal folds twice daily for 14 days 03/12/20 024 Inactive Ozempic 1 mg/dose (4 mg/3 mL) subcutaneous pen injector RxNorm: 7512758 Inject 1 Milligram(s) Subcutaneous QW once a week 03/11/20 23 023 Inactive rosuvastatin 20 mg tablet RxNorm: 685837 Take 1 Tablet(s) Oral QD 02/26/20 023 Inactive d/c pravastatin 80mg Ozempic 1 mg/dose (4 mg/3 mL) subcutaneous pen injector RxNorm: 7065591 Inject 1 Milligram(s) Subcutaneous QW once a week 02/20/20 23 023 Inactive pregabalin 150 mg capsule RxNorm: 608656 Take 1 Capsule(s) Oral HS at bed time 02/19/20 23 023 Inactive pregabalin 100 mg capsule RxNorm: 185179 Take 1 Capsule(s) Oral QAM every morning 02/18/20 23 023 Inactive venlafaxine ER 75 mg capsule,extended release 24 hr RxNorm: 863448 Take 3 Capsule(s) Oral QD 02/04/20 23 023 Inactive FreeStyle Chema 2 Sensor kit RxNorm: use as directed 02/04/20 23 023 Inactive FreeStyle Chema 2 Sensor kit RxNorm: use as directed 02/04/20 23 024 Inactive fluconazole 150 mg tablet RxNorm: 822468 Take 1 Tablet(s) Oral on day 3 and on day 6 02/03/20 23 024 Inactive chlorthalidone 25 mg tablet RxNorm: 262249 Take 1 Tablet(s) Oral QAM every morning 02/03/20 23 No Stop Date Active venlafaxine ER 150 mg capsule,extended release 24 hr RxNorm: 418594 Take 1 Capsule(s) Oral QD 02/03/20 23 023 Inactive acetaminophen 500 mg tablet RxNorm: 241424 1 TABLET ORALLY 3 TIMES DAILY (MAX APAP:4GM/24HR) 12/15/19 23 023 Inactive clotrimazole 1 % topical cream RxNorm: 490899 apply 1g topically to top of feet and in between toes BID 12/09/19 23 023 Inactive potassium chloride ER 20 mEq tablet,extended release RxNorm: 315265 Take 1 Tablet(s) Oral BID 12/09/19 23 024 Inactive d/c 20mEq once daily (sent from hospital) nystatin 100,000 unit/gram topical powder RxNorm: 361356 APPLY TO AFFECTED AREAS TOPICALLY 2 TIMES DAILY 11/21/19 23 023 Inactive Nystop 100,000 unit/gram topical powder RxNorm: 833887 Apply to abd folds, under breasts and L side of groin Topical BID x 14 days, then BID PRN 11/20/19 23 023 Inactive dx: yeast dermatitis [place] Ultra Strength 4 %-30 %-10 % topical cream RxNorm: 091724 Apply 1 Gram(s) Topical QID PRN to feet and legs for neuropathic pain 11/11/19 23 024 Inactive clotrimazole 1 % topical cream RxNorm: 565082 Apply 1/2 Gram(s) Topical BID Apply to affected areas of groin, periarea, and abdominal topically 2 times daily 11/10/19 23 023 Inactive hydrocortisone 2.5 % topical cream RxNorm: 817494 Apply 1/2 Gram(s) Topical BID as needed 11/10/19 23 024 Inactive Levemir FlexPen 100 unit/mL (3 mL) solution subcutaneous insulin pen RxNorm: 042688 Inject 30 Unit(s) Subcutaneous BID 10/07/19 23 023 Inactive Humulin R U-500 (Concentrated) Insulin 500 unit/mL subcutaneous soln RxNorm: 139944 Inject 100 Unit(s) Subcutaneous TID 10/07/19 23 024 Inactive Ozempic 0.25 mg or 0.5 mg (2 mg/3 mL) subcutaneous pen injector RxNorm: 7706867 Inject 1/2 Milligram(s) Subcutaneous QW once a week 10/07/19 23 024 Inactive aripiprazole 15 mg tablet RxNorm: 382346 1/2 TAB (7.5MG) ORALLY DAILY (DX:MAJOR DEPRESSIVE DISORDER) 09/23/19 23 023 Inactive Accu-Chek Guide test strips RxNorm: Use 1 Test Strip QID 09/15/19 23 023 Inactive ok to substitute with any covered alternative test strip Lancets,Thin 28 gauge RxNorm: Use 1 as directed QID 09/15/19 23 023 Inactive torsemide 20 mg tablet RxNorm: 351295 Take 1 Tablet(s) Oral BID 09/09/19 23 024 Inactive d/c once daily dosing carvedilol 25 mg tablet RxNorm: 400881 Take 1 Tablet(s) Oral QD 08/25/19 23 024 Inactive pregabalin 150 mg capsule RxNorm: 964738 1 Capsule(s) Oral HS at bed time 08/18/19 23 023 Inactive pregabalin 100 mg capsule RxNorm: 415641 1 Capsule(s) Oral QAM every morning 08/18/19 23 023 Inactive carvedilol 25 mg tablet RxNorm: 654267 1 Tablet(s) Oral QD 07/28/19 23 023 Inactive lisinopril 20 mg tablet RxNorm: 643501 Give 1 Tablet(s) Oral QD 07/28/19 23 023 Inactive Lyrica 150 mg capsule RxNorm: 696233 Take 1 Capsule(s) Oral QHS every night at bedtime 07/19/19 23 023 Inactive d/c 100mg dose Diflucan 150 mg tablet RxNorm: 721373 Take 1 Tablet(s) Oral QD repeat on day 3 and 6 07/19/19 23 023 Inactive pregabalin 100 mg capsule RxNorm: 059817 Take 1 Capsule(s) Oral QAM every morning 07/19/19 23 023 Inactive gatifloxacin 0.5 % eye drops RxNorm: 496726 Instill 1 Drop(s) as directed TID Instill 1 drop in to affected eye(s) starting 1 day prior to surgery and continue until gone (do not exceed 4 weeks). 07/13/19 23 023 Inactive carvedilol 25 mg tablet RxNorm: 000496 2 Tablet(s) Oral BID 07/13/19 023 Inactive Humulin R Regular U-100 Insulin 100 unit/mL injection solution RxNorm: 668261 85 Unit(s) Injection TID 07/13/19 23 023 Inactive ketorolac 0.5 % eye drops RxNorm: 870759 Instill 1 Drop(s) as directed QID Instill 1 drop into affected eye(s) 4 times daily starting 1 day prior to surgery and continue until gone (do not exceed 4 weeks). 07/13/19 023 Inactive Diflucan 150 mg tablet RxNorm: 640673 Take 1 Tablet(s) Oral QD repeat on day 3 and 6 06/30/19 23 023 Inactive Accu-Chek Guide test strips RxNorm: Use 1 Test Strip QID Use 1 test strip to monitor blood glucose 4 times daily and as needed. Dx:E11.42. 06/23/19 23 023 Inactive ok to substitute with any covered alternative test strip dextromethorphan-gu aifenesin 10 mg-100 mg/5 mL oral liquid RxNorm: 134253 Take 10 Milliliter(s) Oral every 4 hours as needed for cough 06/19/19 23 023 Inactive dextromethorphan-gu aifenesin 10 mg-100 mg/5 mL oral liquid RxNorm: 279413 Take 10 Milliliter(s) Oral every 4 hours as needed for cough 06/19/19 23 023 Inactive Lyrica 150 mg capsule RxNorm: 481520 Take 1 Capsule(s) Oral QHS every night at bedtime 06/18/19 023 Inactive d/c 100mg dose aripiprazole 15 mg tablet RxNorm: 112089 1/2 TAB (7.5MG) ORALLY DAILY (DX:MAJOR DEPRESSIVE DISORDER) 06/05/19 023 Inactive pregabalin 100 mg capsule RxNorm: 344337 1 Capsule(s) Oral QAM every morning 06/02/19 023 Inactive Banophen 50 mg capsule RxNorm: 4811308 Take 1 Capsule(s) Oral Q6H every 6 hours as needed 05/19/19 23 No Stop Date Active Novolog Flexpen U-100 Insulin aspart 100 unit/mL (3 mL) subcutaneous RxNorm: 2305694 Inject 10 Unit(s) Subcutaneous QHS every night at bedtime with nighttime snack 04/08/20 022 Inactive Novolog Flexpen U-100 Insulin aspart 100 unit/mL (3 mL) subcutaneous RxNorm: 3401366 Inject 42 Unit(s) Subcutaneous TID in addition to sliding scale 04/08/20 022 Inactive d/c 36u albuterol sulfate HFA 90 mcg/actuation aerosol inhaler RxNorm: 7851095 Take 2 Puff(s) Inhalation Q4H every four hours as needed as needed for SOB, cough, or wheezing 04/07/20 030 Active Banophen 50 mg capsule RxNorm: 6646563 Take 1 Capsule(s) Oral Q6H every 6 hours as needed 04/06/20 023 Inactive diphenhydramine 50 mg tablet RxNorm: 4685366 Take 1 Tablet(s) Oral Q6H every 6 hours as needed 04/06/20 22 022 Inactive diphenhydramine 50 mg tablet RxNorm: 2604131 1 Tablet(s) Oral Q6H every 6 hours as needed 04/06/20 22 022 Inactive Abilify 15 mg tablet RxNorm: 270918 1/2 Tablet(s) Oral QD 03/10/20 22 023 Inactive Shingrix (PF) 50 mcg/0.5 mL intramuscular suspension, kit RxNorm: 6379931 Administer 1/2 Milliliter(s) Intramuscular QD one time shingrix step 2 ( step 1 given 11/04/21) WITH needle - Nursing please administer upon arrival and once administered post a bridge message with date of administration, labor representative, expiration date, and lot# so we can update [facility] 02/18/20 22 022 Inactive dispense with needle Shingrix (PF) 50 mcg/0.5 mL intramuscular suspension, kit RxNorm: 6706440 Administer 1/2 Milliliter(s) Intramuscular QD one time shingrix step 2 ( step 1 given 11/04/21) WITH needle - Nursing please administer upon arrival and once administered post a bridge message with date of administration, labor representative, expiration date, and lot# so we can update [facility] 02/18/20 22 022 Inactive dispense with needle polyethylene glycol 3350 17 gram/dose oral powder RxNorm: 557577 Take 17=1 capful Gram(s) Oral QD mix with 4-8oz of liquid 01/08/20 22 023 Inactive take this in addition to BID prn order Lyrica 100 mg capsule RxNorm: 858273 Take 1 Capsule(s) Oral QAM every morning 01/08/20 22 022 Inactive d/c 50mg dose acetaminophen 500 mg tablet RxNorm: 821622 Take 1 Tablet(s) Oral TID 01/08/20 22 022 Inactive d/c PRN order Lyrica 150 mg capsule RxNorm: 596720 Take 1 Capsule(s) Oral QHS every night at bedtime 01/08/20 22 023 Inactive d/c 100mg dose Abilify 5 mg tablet RxNorm: 791600 Take 1 Tablet(s) Oral QD take 1 tab po QD #30 refill 5 dx: MDD 12/12/19 22 022 Inactive Abilify 5 mg tablet RxNorm: 353820 Take 1 Tablet(s) Oral QD take 1 tab po QD #30 refill 5 dx: MDD 12/12/19 22 022 Inactive Novolog Flexpen U-100 Insulin aspart 100 unit/mL (3 mL) subcutaneous RxNorm: 0264610 Inject 42 Unit(s) Subcutaneous TID in addition to sliding scale 12/10/19 22 022 Inactive d/c 36u chlorthalidone 25 mg tablet RxNorm: 388009 Take 1 Tablet(s) Oral QAM every morning 12/10/19 22 023 Inactive pregabalin 50 mg capsule RxNorm: 429643 Take 1 Capsule(s) Oral QAM every morning 11/12/19 22 022 Inactive tetanus-diphtheria toxoids-Td 2 Lf unit-2 Lf unit/0.5 mL IM suspension RxNorm: 139 Take 0.5 Miscellaneous Intramuscular 11/12/19 22 022 Inactive need tdap - nursing to administer upon arrival pregabalin 50 mg capsule RxNorm: 263024 Take 1 Capsule(s) Oral QAM every morning 10/16/19 Inactive pregabalin 50 mg capsule RxNorm: 031820 Take 1 Capsule(s) Oral QAM every morning 10/16/19 22 022 Inactive pregabalin 50 mg capsule RxNorm: 614632 1 Capsule(s) Oral QAM every morning 10/15/19 22 022 Inactive Shingrix (PF) 50 mcg/0.5 mL intramuscular suspension, kit RxNorm: 3359677 Administer 1/2 Milliliter(s) Intramuscular one time Nursing please administer upon arrival and once administered post a bridge message with date of administration, labor representative, expiration date, and lot# so we can update [facility]. 10/09/19 22 022 Inactive shingrix step 1 Shingrix (PF) 50 mcg/0.5 mL intramuscular suspension, kit RxNorm: 1488655 Administer 1/2 Milliliter(s) Intramuscular one time Nursing please administer upon arrival and once administered post a bridge message with date of administration, labor representative, expiration date, and lot# so we can update [facility]. 10/09/19 22 022 Inactive shingrix step 1 cholecalciferol (vitamin D3) 1,250 mcg (50,000 unit) capsule RxNorm: 041671 Take 1 Capsule(s) Oral QW once a [...] aspart 100 unit/mL (3 mL) subcutaneous RxNorm: 5517730 Inject 10 Unit(s) Subcutaneous QHS every night at bedtime with nighttime snack 10/08/19 22 Inactive Shingrix (PF) 50 mcg/0.5 mL intramuscular suspension, kit RxNorm: 2882215 ADMINISTER 2-DOSE SERIES PER CDC GUIDELINES 10/08/19 22 Active Shingrix (PF) 50 mcg/0.5 mL intramuscular suspension, kit RxNorm: 9829161 ADMINISTER 2-DOSE SERIES PER CDC GUIDELINES 10/08/19 22 Inactive Novolog Flexpen U-100 Insulin aspart 100 unit/mL (3 mL) subcutaneous RxNorm: 4960692 Inject 36 Unit(s) Subcutaneous TID in addition to sliding scale 10/08/19 22 Inactive Novofine Autocover 30 gauge x 1/3 needle RxNorm: Use 1 Miscellaneous UD as directed Use 1 needle as directed to administer insulin 5 times a day Dx:E11.42. 10/03/19 Inactive ok to substitute with any covered alternative pen needle benzoyl peroxide 10 % topical cleanser RxNorm: 510120 Apply 1 Application Topical QD apply to face, wash rinse and dry once daily (may change to QOD if drying) 08/19/19 22 022 Inactive (%covered by insurance) #60ml refill 11 dx: acne benzoyl peroxide 10 % topical cleanser RxNorm: 017541 Apply 1 Application Topical QD apply to face, wash rinse and dry once daily (may change to QOD if drying) 08/19/19 22 022 Inactive (%covered by insurance) #60ml refill 11 dx: acne benzoyl peroxide 10 % topical cleanser RxNorm: 102480 Apply 1 Application Topical QD apply to face, wash rinse and dry once daily (may change to QOD if drying) 08/19/19 22 022 Inactive (%covered by insurance) #60ml refill 11 dx: acne Lyrica 50 mg capsule RxNorm: 567517 Take 1 Capsule(s) Oral QAM every morning Take 1 capsule by mouth once daily 08/19/19 22 022 Inactive benzoyl peroxide 10 % topical cleanser RxNorm: 692095 Apply 1 Application Topical QD apply to face, wash rinse and dry once daily (may change to QOD if drying) 08/19/19 22 022 Inactive (%covered by insurance) #60ml refill 11 dx: acne Lyrica 100 mg capsule RxNorm: 153687 Take 1 Capsule(s) Oral QHS every night at bedtime Take 1 capsule by mouth once daily at bedtime 08/19/19 22 022 Inactive Lyrica 100 mg capsule RxNorm: 363347 Take 1 Capsule(s) Oral QHS every night at bedtime Take 1 capsule by mouth once daily at bedtime 08/16/19 22 022 Inactive Lyrica 50 mg capsule RxNorm: 445303 Take 1 Capsule(s) Oral QAM every morning Take 1 capsule by mouth once daily 08/16/19 22 022 Inactive Levemir FlexTouch U-100 Insulin 100 unit/mL (3 mL) subcutaneous pen RxNorm: 541619 Inject 86 Unit(s) Subcutaneous BID 08/05/19 22 022 Inactive d/c 83units BID Lyrica 100 mg capsule RxNorm: 957020 Take 1 Capsule(s) Oral QHS every night at bedtime Take 1 capsule by mouth once daily at bedtime 07/14/19 22 022 Inactive Lyrica 50 mg capsule RxNorm: 730371 Take 1 Capsule(s) Oral QAM every morning Take 1 capsule by mouth once daily 07/14/19 22 022 Inactive Levemir FlexTouch U-100 Insulin 100 unit/mL (3 mL) subcutaneous pen RxNorm: 311857 Inject 83 Unit(s) Subcutaneous BID 07/08/19 22 [...] test strip hydralazine 50 mg tablet RxNorm: 234438 Take 1 Tablet(s) Oral QID 05/05/20 21 022 Inactive venlafaxine ER 225 mg tablet,extended release 24 hr RxNorm: 259838 Take 1 Tablet(s) Oral QD 05/05/20 21 021 Inactive venlafaxine ER 225 mg tablet,extended release 24 hr RxNorm: 913432 Take 1 Tablet(s) Oral QD 12/20 022 Inactive isosorbide mononitrate ER 30 mg tablet,extended release 24 hr RxNorm: 194713 Take 1 Tablet(s) Oral QD 05/05/20 21 024 Inactive hydralazine 50 mg tablet RxNorm: 194366 Take 1 Tablet(s) Oral QID 05/05/20 21 021 Inactive aspirin 81 mg tablet,delayed release RxNorm: 747656 Take 1 Tablet(s) Oral QD 03/31/20 022 Inactive Vitamin D2 1,250 mcg (50,000 unit) capsule RxNorm: 7056698 Take 1 Capsule(s) Oral QW once a week x 12 weeks 03/31/20 Inactive Vitamin D2 1,250 mcg (50,000 unit) capsule RxNorm: 3053532 Take 1 Capsule(s) Oral QW once a week 03/31/20 021 Inactive Zetia 10 mg tablet RxNorm: 934391 Take 1 Tablet(s) Oral QD 03/31/20 024 Inactive Zetia 10 mg tablet RxNorm: 695591 Take 1 Tablet(s) Oral QD 03/31/20 021 Inactive hydralazine 25 mg tablet RxNorm: 352385 Take 1 Tablet(s) Oral QID 03/31/20 21 021 Inactive hydralazine 25 mg tablet RxNorm: 566864 Take 1 Tablet(s) Oral QID 03/31/20 021 Inactive hydralazine 10 mg tablet RxNorm: 764888 Take 1 Tablet(s) Oral QID 03/03/20 021 Inactive cephalexin 500 mg tablet RxNorm: 794620 Take 1 Tablet(s) Oral QID 02/27/20 021 Inactive cephalexin 500 mg tablet RxNorm: 571211 Take 1 Tablet(s) Oral QID 02/27/20 021 Inactive lisinopril 40 mg tablet RxNorm: 450295 Take 1 Tablet(s) Oral QD 02/11/20 21 023 Inactive Eliquis 5 mg tablet RxNorm: 2473820 Take 1 Tablet(s) Oral BID 01/05/20 022 Inactive Eliquis 5 mg tablet RxNorm: 5768607 Take 2 Tablet(s) Oral QD 01/01/20 021 Inactive Lyrica 50 mg capsule RxNorm: 510338 Take 1 Capsule(s) Oral QAM every morning 12/24/19 21 021 Inactive Lyrica 100 mg capsule RxNorm: 408656 Take 1 Capsule(s) Oral QHS every night at bedtime 12/24/19 021 Inactive clotrimazole 1 % topical cream RxNorm: 354594 Apply to right foot and toes Topical BID 12/04/19 21 023 Inactive metoprolol succinate ER 200 mg tablet,extended release 24 hr RxNorm: 636629 Take 1 Tablet(s) Oral QD 12/04/19 023 Inactive ciprofloxacin 500 mg tablet RxNorm: 613828 Take 1 Tablet(s) Oral QD 11/30/19 021 Inactive DX ofloxacin otic drops Accu-Chek Guide test strips RxNorm: USE 1 TO CHECK GLUCOSE 4 TIMES DAILY AND NEEDED 11/15/19 21 023 Inactive Blood Glucose Test strips RxNorm: Use 1 Test Strip QID at PRN 11/05/19 21 023 Inactive E11.42 lisinopril 30 mg tablet RxNorm: 323254 Take 1 Tablet(s) Oral QD 10/30/19 021 Inactive lisinopril 20 mg tablet RxNorm: 600886 Take 1 Tablet(s) Oral QD 10/23/19 021 Inactive lisinopril 20 mg tablet RxNorm: 154903 Take 1 Tablet(s) Oral QD 10/23/19 21 021 Inactive lisinopril 10 mg tablet RxNorm: 429904 Take 1 Tablet(s) Oral QD 10/02/19 21 021 Inactive icosapent ethyl 1 gram capsule RxNorm: 0586979 Take 2 Capsule(s) (2 gm) Oral BID with meals 09/12/19 21 024 Inactive Okay to dispense one 2gm tab if you have that available. icosapent ethyl 1 gram capsule RxNorm: 2885827 Take 2 Capsule(s) Oral BID 09/12/19 21 021 Inactive Okay to dispense one 2gm tab if you have that available. amlodipine 10 mg tablet RxNorm: 053483 Take 1 Tablet(s) Oral QD 09/04/19 022 Inactive aspirin 81 mg tablet,delayed release RxNorm: 321819 Take 1 Tablet(s) Oral QD 09/04/19 021 Inactive Levemir FlexTouch U-100 Insulin 100 unit/mL (3 mL) subcutaneous pen RxNorm: 368071 Inject 150 Unit(s) Subcutaneous BID 09/04/19 022 Inactive venlafaxine ER 150 mg tablet,extended release 24 hr RxNorm: 269751 Take 1 Tablet(s) Oral QD 09/04/19 Inactive clotrimazole-betame thasone 1 %-0.05 % topical cream RxNorm: 179684 Apply to rash on red area on left abdomen/chest Topical BID 08/10/19 21 021 Inactive amlodipine 5 mg tablet RxNorm: 272242 Take 1 Tablet(s) Oral QD 07/31/19 Inactive cephalexin 500 mg tablet RxNorm: 061520 Take 1 Tablet(s) Oral BID BID - Twice Daily 07/31/19 021 Inactive Start 08/01/20 pantoprazole 40 mg tablet,delayed release RxNorm: 645701 Take 1 Tablet(s) Oral QAM every morning 07/08/19 022 Inactive senna 8.6 mg tablet RxNorm: 582953 Take 1 Tablet(s) Oral QD 07/08/19 022 Inactive carbamazepine 200 mg tablet RxNorm: 544902 Take 1 Tablet(s) Oral BID 07/08/19 21 022 Inactive clopidogrel 75 mg tablet RxNorm: 788741 Take 1 Tablet(s) Oral QD 07/08/19 021 Inactive Blood Glucose Test strips RxNorm: Use 1 Test Strip QID at PRN 07/08/1907 07/22/2 021 Inactive E11.42 Novolog Flexpen U-100 Insulin aspart 100 unit/mL (3 mL) subcutaneous RxNorm: 9728732 Administer per sliding scale Milliliter(s) Subcutaneous TID 151-200: 10 u; 201-250: 20 u; 251-300: 30 u; 301-350: 40 u; 351-400: 50 u. 07/08/19 022 Inactive lisinopril 5 mg tablet RxNorm: 519278 Take 1 Tablet(s) Oral QD 07/08/19 21 021 Inactive Novolog Flexpen U-100 Insulin aspart 100 unit/mL (3 mL) subcutaneous RxNorm: 2797703 Inject 85 Unit(s) Subcutaneous TID 07/08/19 022 Inactive pravastatin 80 mg tablet RxNorm: 622694 Take 1 Tablet(s) Oral QHS every night at bedtime 07/08/19 023 Inactive clotrimazole 1 % topical cream RxNorm: 369124 Apply to bilateral groin areas Topical BID 07/08/19 022 Inactive metoprolol succinate ER 200 mg tablet,extended release 24 hr RxNorm: 467213 Take 1 Tablet(s) Oral QD 07/08/19 021 Inactive Vitamin D3 25 mcg (1,000 unit) tablet RxNorm: 398805 Take 1 Tablet(s) Oral QD 07/08/19 021 Inactive isosorbide dinitrate 30 mg tablet RxNorm: 840842 Take 1 Tablet(s) Oral QD 07/08/19 021 Inactive Levemir FlexTouch U-100 Insulin 100 unit/mL (3 mL) subcutaneous pen RxNorm: 593608 Inject 140 Unit(s) Subcutaneous BID 07/08/19 021 Inactive torsemide 20 mg tablet RxNorm: 963831 Take 1 Tablet(s) Oral QD 07/08/19 21 023 Inactive venlafaxine 75 mg tablet RxNorm: 104041 Take 1 Tablet(s) Oral QD 07/08/19 021 Inactive acetaminophen 500 mg tablet RxNorm: Take 1 Tablet(s) Oral TID as needed for headache 06/18/19 21 021 Inactive acetaminophen 500 mg tablet RxNorm: 978228 Take 1 Tablet(s) Oral TID as needed for headache 06/18/19 21 021 Inactive Lyrica 100 mg capsule RxNorm: 497462 Take 1 Capsule(s) Oral QHS every night at bedtime 06/11/19 21 021 Inactive Lyrica 50 mg capsule RxNorm: 483197 Take 1 Capsule(s) Oral QAM every morning 06/10/19 21 021 Inactive hydrocortisone 2.5 % topical cream RxNorm: 633561 Apply to bilateral groin creases Topical BID 05/15/20 20 021 Inactive clotrimazole 1 % topical cream RxNorm: 705327 Apply to bilateral groin areas Topical BID 05/15/20 20 021 Inactive Lyrica 50 mg capsule RxNorm: 749622 Take 1 Capsule(s) Oral QAM every morning 05/14/20 20 020 Inactive Lyrica 100 mg capsule RxNorm: 314184 Take 1 Capsule(s) Oral QHS every night [...] Inactive Nystop 100,000 unit/gram topical powder RxNorm: 955332 Apply to abd folds, under breasts and L side of groin Topical BID x 14 days, then BID PRN 04/08/20 20 Inactive dx: yeast dermatitis Lyrica 100 mg capsule RxNorm: 833092 Take 1 Capsule(s) Oral QHS every night at bedtime 03/13/20 20 Inactive Lyrica 50 mg capsule RxNorm: 476546 Take 1 Capsule(s) Oral QAM every morning 03/13/20 20 Inactive ketoconazole 2 % shampoo RxNorm: 557976 Apply Topical two times a week with showers 03/11/20 20 Inactive cholecalciferol (vitamin D3) 50 mcg (2,000 unit) tablet RxNorm: 256624 Take 1 Tablet(s) Oral QD 03/11/20 20 Inactive Zetia 10 mg tablet RxNorm: 489306 Take 1 Tablet(s) Oral QD 03/07/20 20 Inactive Zetia 10 mg tablet RxNorm: 895840 Take 1 Tablet(s) Oral QD 03/07/20 20 Inactive Lyrica 50 mg capsule RxNorm: 226625 Take 1 Capsule(s) Oral QAM every morning 02/15/20 20 Inactive Lyrica 100 mg capsule RxNorm: 017735 Take 1 Capsule(s) Oral QHS every night at bedtime 02/15/20 20 Inactive Lyrica 100 mg capsule RxNorm: 757438 Take 1 Capsule(s) Oral QHS every night at bedtime 02/15/20 20 Inactive Lyrica 50 mg capsule RxNorm: 441281 Take 1 Capsule(s) Oral QAM every morning 02/15/20 20 Inactive metoprolol succinate ER 200 mg tablet,extended release 24 hr RxNorm: 318325 Take 1 Tablet(s) Oral QD 08/12/19 23 Active loperamide 2 mg capsule RxNorm: 418398 Take 1 Capsule(s) Oral QID as needed 06/12/19 Active hydralazine 50 mg tablet RxNorm: 345681 Take 1 Tablet(s) Oral QID 08/12/19 23 Active Soft Touch Lancets RxNorm: miscellaneous 03/04/20 24 Active venlafaxine ER 75 mg capsule,extended release 24 hr RxNorm: 863322 Take 3 Capsule(s) Oral QD 06/12/19 22 023 Inactive polyethylene glycol 3350 17 gram/dose oral powder RxNorm: 277019 Take 17=1 capful Gram(s) Oral BID as needed mix with 4-8oz of liquid 06/12/19 22 024 Inactive icosapent ethyl 1 gram capsule RxNorm: 0156355 Take 2 Capsule(s) (2 gm) Oral BID with meals 10/07/19 23 023 Inactive Okay to dispense one 2gm tab if you have that available. Levemir FlexTouch U-100 Insulin 100 unit/mL (3 mL) subcutaneous pen RxNorm: 797515 Inject 80 Unit(s) Subcutaneous BID 07/14/19 23 023 Inactive Novolog Flexpen U-100 Insulin aspart 100 unit/mL (3 mL) subcutaneous RxNorm: 6042514 Insert 30 Unit(s) Subcutaneous TID with meals [...] Codes Status Date Appointment: Brian Munson WPtel: [address] [place], [place] [phone] AWV 02/08/2024 Appointment: Brian Munson WPtel: [address] [place], [place] [phone] [place] F/U 01/11/2024 Appointment: Sandra Clark WPtel: [address] [place], [place] [phone] Telehealth Psych Follow Up 12/09 Appointment: Tapan Shirley WPtel: [address] [place], [place] [phone] TCM 10/26/2022 Referral: [facility] WPtel: [address], [address] [id number] Referral Records Received 09/21/2022 Appointment: Tapan Shirley WPtel: [address] [place], [place] [phone] [place] F/U 08/11/2022 Appointment: Tapan Shirley WPtel: [address] [place], [place] [phone] [place] F/U 07/14/2022 Appointment: Tapan Shirley WPtel: [address] [facility] [address] [id number] [place] F/U 02/10/2022 Referral: [facility] [place] CARLO WPtel: [address] [facility] [address] [id number] [place] Referral Completed 05/28/2021 Referral: General Cardiology [...] attention.??Sister Jyotsna involved in his care cell# [phone]??Guardian: Giulia (tapan met in person 09/01/21), now [...] note from 11.08.2023 at [facility] (follow up 6 months)Colon & Rectal Surgery visit scheduled for 03/08/24 with Matilde Pérez PA-C.?? 02/08/2024
--- OUTSIDE RECORDS SUMMARY | 2024-03-09 03:24 | XMS_ITS | CCD ---
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 Inactive E11.42 lisinopril 30 mg tablet RxNorm: 285448 Take 1 Tablet(s) Oral QD 10/30/19 21 021 Inactive lisinopril 20 mg tablet RxNorm: 437611 Take 1 Tablet(s) Oral QD 10/23/19 21 021 Inactive lisinopril 20 mg tablet RxNorm: 983296 Take 1 Tablet(s) Oral QD 10/23/19 21 021 Inactive lisinopril 10 mg tablet RxNorm: 827260 Take 1 Tablet(s) Oral QD 10/02/19 021 Inactive icosapent ethyl 1 gram capsule RxNorm: 7234347 Take 2 Capsule(s) (2 gm) Oral BID with meals 09/12/19 21 024 Inactive Okay to dispense one 2gm tab if you have that available. icosapent ethyl 1 gram capsule RxNorm: 2756858 Take 2 Capsule(s) Oral BID 09/12/19 21 021 Inactive Okay to dispense one 2gm tab if you have that available. amlodipine 10 mg tablet RxNorm: 173329 Take 1 Tablet(s) Oral QD 09/04/19 022 Inactive aspirin 81 mg tablet,delayed release RxNorm: 625076 Take 1 Tablet(s) Oral QD 09/04/19 21 021 Inactive Levemir FlexTouch U-100 Insulin 100 unit/mL (3 mL) subcutaneous pen RxNorm: 074850 Inject 150 Unit(s) Subcutaneous BID 09/04/19 21 022 Inactive venlafaxine ER 150 mg tablet,extended release 24 hr RxNorm: 953470 Take 1 Tablet(s) Oral QD 09/04/19 21 021 Inactive clotrimazole-betame thasone 1 %-0.05 % topical cream RxNorm: 372699 Apply to rash on red area on left abdomen/chest Topical BID 08/10/19 21 021 Inactive amlodipine 5 mg tablet RxNorm: 465540 Take 1 Tablet(s) Oral QD 07/31/19 Inactive cephalexin 500 mg tablet RxNorm: 993315 Take 1 Tablet(s) Oral BID BID - Twice Daily 07/31/19 Inactive Start 08/01/20 pantoprazole 40 mg tablet,delayed release RxNorm: 180749 Take 1 Tablet(s) Oral QAM every morning 07/08/19 Inactive senna 8.6 mg tablet RxNorm: 485437 Take 1 Tablet(s) Oral QD 07/08/19 022 Inactive carbamazepine 200 mg tablet RxNorm: 146040 Take 1 Tablet(s) Oral BID 07/08/19 Inactive clopidogrel 75 mg tablet RxNorm: 965265 Take 1 Tablet(s) Oral QD 07/08/19 021 Inactive Blood Glucose Test strips RxNorm: Use 1 Test Strip QID at PRN 07/08/19 Inactive E11.42 Novolog Flexpen U-100 Insulin aspart 100 unit/mL (3 mL) subcutaneous RxNorm: 8812108 Administer per sliding scale Milliliter(s) Subcutaneous TID 151-200: 10 u; 201-250: 20 u; 251-300: 30 u; 301-350: 40 u; 351-400: 50 u. 07/08/19 Inactive lisinopril 5 mg tablet RxNorm: 876995 Take 1 Tablet(s) Oral QD 07/08/19 Inactive Novolog Flexpen U-100 Insulin aspart 100 unit/mL (3 mL) subcutaneous RxNorm: 9766816 Inject 85 Unit(s) Subcutaneous TID 07/08/19 022 Inactive pravastatin 80 mg tablet RxNorm: 452564 Take 1 Tablet(s) Oral QHS every night at bedtime 07/08/19 023 Inactive clotrimazole 1 % topical cream RxNorm: 438305 Apply to bilateral groin areas Topical BID 07/08/19 21 022 Inactive metoprolol succinate ER 200 mg tablet,extended release 24 hr RxNorm: 484919 Take 1 Tablet(s) Oral QD 07/08/19 21 021 Inactive Vitamin D3 25 mcg (1,000 unit) tablet RxNorm: 139794 Take 1 Tablet(s) Oral QD 07/08/19 Inactive isosorbide dinitrate 30 mg tablet RxNorm: 030455 Take 1 Tablet(s) Oral QD 07/08/19 021 Inactive Levemir FlexTouch U-100 Insulin 100 unit/mL (3 mL) subcutaneous pen RxNorm: 486211 Inject 140 Unit(s) Subcutaneous BID 07/08/19 021 Inactive torsemide 20 mg tablet RxNorm: 135801 Take 1 Tablet(s) Oral QD 07/08/19 023 Inactive venlafaxine 75 mg tablet RxNorm: 833193 Take 1 Tablet(s) Oral QD 07/08/19 021 Inactive acetaminophen 500 mg tablet RxNorm: 567708 Take 1 Tablet(s) Oral TID as needed for headache 06/18/19 021 Inactive acetaminophen 500 mg tablet RxNorm: 387011 Take 1 Tablet(s) Oral TID as needed for headache 06/18/19 021 Inactive Lyrica 100 mg capsule RxNorm: 826290 Take 1 Capsule(s) Oral QHS every night at bedtime 06/11/19 021 Inactive Lyrica 50 mg capsule RxNorm: 319335 Take 1 Capsule(s) Oral QAM every morning 06/10/19 021 Inactive hydrocortisone 2.5 % topical cream RxNorm: 879248 Apply to bilateral groin creases Topical BID 05/15/20 20 021 Inactive clotrimazole 1 % topical cream RxNorm: 512604 Apply to bilateral groin areas Topical BID 05/15/20 20 021 Inactive Lyrica 50 mg capsule RxNorm: 213331 Take 1 Capsule(s) Oral QAM every morning 05/14/20 20 020 Inactive Lyrica 100 mg capsule RxNorm: 724995 Take 1 Capsule(s) Oral QHS every night [...] Inactive Nystop 100,000 unit/gram topical powder RxNorm: 765555 Apply to abd folds, under breasts and L side of groin Topical BID x 14 days, then BID PRN 04/08/20 20 Inactive dx: yeast dermatitis Lyrica 100 mg capsule RxNorm: 767683 Take 1 Capsule(s) Oral QHS every night at bedtime 03/13/20 20 Inactive Lyrica 50 mg capsule RxNorm: 715875 Take 1 Capsule(s) Oral QAM every morning 03/13/20 20 Inactive ketoconazole 2 % shampoo RxNorm: 505588 Apply Topical two times a week with showers 03/11/20 20 Inactive cholecalciferol (vitamin D3) 50 mcg (2,000 unit) tablet RxNorm: 256697 Take 1 Tablet(s) Oral QD 03/11/20 20 021 Inactive Zetia 10 mg tablet RxNorm: 762216 Take 1 Tablet(s) Oral QD 03/07/20 20 021 Inactive Zetia 10 mg tablet RxNorm: 837553 Take 1 Tablet(s) Oral QD 03/07/20 20 020 Inactive Lyrica 50 mg capsule RxNorm: 688463 Take 1 Capsule(s) Oral QAM every morning 02/15/20 20 Inactive Lyrica 100 mg capsule RxNorm: 701461 Take 1 Capsule(s) Oral QHS every night at bedtime 02/15/20 20 Inactive Lyrica 100 mg capsule RxNorm: 999367 Take 1 Capsule(s) Oral QHS every night at bedtime 02/15/20 20 020 Inactive Lyrica 50 mg capsule RxNorm: 771631 Take 1 Capsule(s) Oral QAM every morning 02/15/20 Inactive metoprolol succinate ER 200 mg tablet,extended release 24 hr RxNorm: 482255 Take 1 Tablet(s) Oral QD 08/12/19 23 Active loperamide 2 mg capsule RxNorm: 471216 Take 1 Capsule(s) Oral QID as needed 06/12/19 22 Active hydralazine 50 mg tablet RxNorm: 431720 Take 1 Tablet(s) Oral QID 08/12/19 23 Active Soft Touch Lancets RxNorm: miscellaneous 03/04/20 24 Active venlafaxine ER 75 mg capsule,extended release 24 hr RxNorm: 876537 Take 3 Capsule(s) Oral QD 06/12/19 22 023 Inactive polyethylene glycol 3350 17 gram/dose oral powder RxNorm: 539513 Take 17=1 capful Gram(s) Oral BID as needed mix with 4-8oz of liquid 06/12/19 22 024 Inactive icosapent ethyl 1 gram capsule RxNorm: 0472298 Take 2 Capsule(s) (2 gm) Oral BID with meals 10/07/19 23 023 Inactive Okay to dispense one 2gm tab if you have that available. Levemir FlexTouch U-100 Insulin 100 unit/mL (3 mL) subcutaneous pen RxNorm: 943308 Inject 80 Unit(s) Subcutaneous BID 07/14/19 23 023 Inactive Novolog Flexpen U-100 Insulin aspart 100 unit/mL (3 mL) subcutaneous RxNorm: 8449243 Insert 30 Unit(s) Subcutaneous TID with meals [...] [facility] WPtel: [address] [id number] [place] Referral Records Received 09/21/2022 Referral: [facility] WPtel: [address] [id number] [place] Referral Completed 05/28/2021 Referral: General Cardiology [...] attention.??Sister Jyotsna involved in his care cell# [phone]??Guardian: Giulia (tapan met in person 09/01/21), now [...] )??Bobbi note from 11.08.2023 at [facility] (follow up 6 months)Colon & Rectal Surgery visit scheduled for 03/08/24 with Matilde Pérez PA-C.?? 02/08/2024
--- OUTSIDE RECORDS SUMMARY | 2024-03-09 03:25 | XMS_ITS | Clinical Summary ---
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 RN Software Test Automation Engineer, Juanita Yoo, notified and she will attempt [...] No, referral made to Advance Care Plan Tile Layer. Patient has identified Specific Treatment Preferences: No Sophia Méndez RN .................... 07/06/2011 2:30 PM] Specific limits to treatment preferences NOT identified: ASSUME FULL TREATMENT. Assessment & Plan (05/25/2012 12:51 PM PRODUCTION RECOVERY OPERATOR): Advance Care Planning: Disease-specific Session Leonid Leahy is a [facility] patient. His PCP is Leandra Limon at [facility]. Advance care planning discussions were completed with Leonid. He identified his sister, Brittany Suggs, as his healthcare agent. Brittany was not present for ACP session. Understanding of Illness and Disease [place]: Leonid identifies his medical condition as what [...] to live well: Daily visit to local [employer] for a pop and to visit and catch up in the news with locals. Leonid obed with serious challenges in his life: Support of his sister, only a phone call away. Helps manage [facility] services. Leonid identifies the following fears [...] Leonid expresses these health care preferences: Summary eLonid's Treatment Preferences: LOW SURVIVAL; HIGH TREATMENT BURDEN: [...] and primary care provider. Hard Choices for [place] [employer] booklet was sent to Leonid and his health care agent for review. Leonid requested all information be mailed to his sister and technical writer to place call to sister to explain process. Leonid identified the following concerns during his advance care planning session: needing assistance at home to ensure he is managing his medications and treatments to keep going as is and stabilizing. Is followed by [facility] Administrator for needed services. Questions identified for his primary care provider: none Documents addressed during this advance care planning session: Health Care Directive completed and scanned into medical record. Statement of Treatment Preferences for advanced illness completed and scanned into the medical record. Recommendations/Plan: Leonid to review Advance Care Plan with Leonid's healthcare agent. Cost And Sales Record Supervisor will be contacting Leonid's [facility] to explain services rendered, Leonid would benefit from: Home Care and/or Hospice when / if appropriate. [facility] services involved, [facility] supports coordination of medical asistance. [...] 2:27 PM Sophia Méndez RN RN [facility] [phone] Vitamin D deficiency 01/06/2011 011 Neuropathy 09/25/2010 [...] kg (390 lb) 07/14/2022 6:10 PM PRODUCTION RECOVERY OPERATOR Height 167.6 cm (5' 6) 07/14/2022 6:10 PM PRODUCTION RECOVERY OPERATOR Body Mass Index 62.95 07/14/2022 6:10 PM PRODUCTION RECOVERY OPERATOR Plan of Treatment Health Maintenance Due [...] Kay García Medical Devices Implanted Type Area Tube Handler Device Identifier Shelf Expiration Date Model / Serial / Lot Iol Cedar +20 Tecnis Zcb00 - [id number] Implanted:Qty: 1 on 07/15/2022 by Tanner Fuentes MD at [facility] Left: Eye [employer] 06/24/2025 ZCB00 20.0 / [id number] / Iol Cedar +20 Tecnis Zcb00 - [id number] Implanted:Qty: 1 on 08/19/2022 by Tanner Fuentes MD at [facility] Right: Eye [employer] 06/24/2025 ZCB00 20.0 / [id number] / Procedures Procedure Name Priority Date/Time Associated Diagnosis Comments LIPID PANEL Routine 03/13/2019 2:31 PM CDT Essential hypertriglyceridemia from Last 3 Months or Most Recently Relevant to Health Maintenance Results * (ABNORMAL) LIPID PANEL (03/13/2019 2:31 PM CDT) [facility] CHOLESTEROL,TOTAL 193 100 - 199 mg/dL 03/13/2019 9:25 PM CDT [facility] TRIGLYCERIDES 715(H) <150 mg/dL 03/13/2019 9:25 PM CDT [facility] HDL CHOLESTEROL 29(L) >40 mg/dL 9 9:25 PM CDT [facility] NON-HDL CHOLESTEROL 164(H) <145 mg/dl 03/13/2019 9:25 PM CDT [facility] CHOL/HDL RATIO 6.66(H) <4.50 03/13/2019 9:25 PM CDT [facility] LDL CHOLESTEROL 9 9:25 PM CDT [facility] Comment:Invalid LDL when Tri g >400. PROVIDER ORDERED STATUS RANDOM 03/13/2019 9:25 PM CDT [facility] Blood BLOOD SPECIMEN / Unknown Venipuncture / Unknown 03/13/2019 2:31 PM CDT 03/13/2019 2:31 PM CDT Suellen Sosa MD [facility]MI[facility] [address] [place] [address], from Last 3 Months or Most Recently Relevant to Health Maintenance Advance Directives Documents on File Type Date Recorded Patient Tester Regulator Eduardo smiley POL 09/26/2014 3:45 PM AH [...] 9:30 PM 03/19/2009 6:17 PM Care Teams Saxophone Assembler Relationship Specialty Start Date End Date Pcp, No . PCP - General 07/15/22 Alan Lopez MD Internal Medicine Internal Medicine 11/20/10 Nishant Watson MD [address] [place] [address] Endocrinology 08/15/13
--- OUTSIDE RECORDS SUMMARY | 2024-03-09 03:25 | XMS_ITS | Encounter Summary ---
Author Organization [facility] Address [address] [place] [address] Care Team Providers Care Rn Residential Name Role Phone Services, [facility] Physician Primary Care Provi sadia Prince Tobar MD Unavailable [phone] Prince Tobar MD Unavailable [phone] Reason for Referral * Consultation (Priority: 1-2 Weeks) - Pending Review Specialty Diagnoses / Procedures Referred By Contjohnny t Referred To Contact Colon and Rectal Surgery Diagnoses Anal fissure External hemorrhoids Reinaldo Beltran PA-C [facility] [address] [place] [phone] Phone: tel: fax: Referral ID Status Reason Start Date Expiration Date V isits Requested Visits Authorized [id number] Pending Review 12/28/2023 12/27/2024 1 1 Question Answer Reason for Referral: Anal Fissure Special Concerns: Other My Clinical Question Is: Anal fissure, taking Apixaban Scheduling Instructions: [facility] will call you to coordinate care as prescribed your provider. If you don? t hear from a home office representative within 2 business days, please call . Comments Please be aware that coverage of these services is subject to the terms and limitations of your health insurance plan. Call member services at your health plan with any benefit or coverage questions. [facility] will call you to coordinate care as prescribed your provider. If you don? t hear from a home office representative within 2 business days, please call . Reason for Visit * Reason Comments Rectal Bleeding Encounter Details Date Type Department Care Team (Late st Contact Info) Description 12/28/2023 6:08 PM CDT - 12/29/2023 12:59 AM CDT Emergency [facility] Emergency Dept [address] [place] [address] Agustin Cesar MD [address] [place], [place] [address] Anal fissure; External hemorrhoids Discharge Disposition: Home [...] on file Legal Sex Male 3:35 AM INSULATION POWER UNIT TENDER Gender Identity Not on file Sexual Orientation Choose not to disclose 2021 8:14 AM INSULATION POWER UNIT TENDER documented as of this encounter Last Filed [...] PM CDT Thank you for coming to [facility] emergency department. The bleeding you [...] mouth daily cholecalciferol (VITAMIN D3) 1250 mcg (68529 units) capsule Take 1,250 mcg by mouth [...] 7 days 4 g 12/28/2023 nystatin (MYCOSTATIN) 127792 UNIT/GM external powder Apply topically 2 times [...] MG tablet cholecalciferol (VITAMIN D3) 1250 mcg (53739 units) capsule clotrimazole (LOTRIMIN) 1 % external [...] 200 MG 24 hr tablet nystatin (MYCOSTATIN) 546365 UNIT/GM external powder pantoprazole (PROTONIX) 40 MG [...] POS Antibody Screen Negative SPECIMEN EXPIRATION DATE [id number] ABO/RH TYPE AND SCREEN Emergency Department Course [...] 1. Anal fissure K60.2 Adult Colorectal Surgery Pulmonologist Intensivist Referral 2. External hemorrhoids K64.4 Adult Colorectal Surgery Pulmonologist Intensivist Referral Discharge Medications: New Prescriptions HYDROCORTISONE, PERIANAL, [...] yesterday, he went to a clinic in [place], he is unsure of what was done [...] MG tablet cholecalciferol (VITAMIN D3) 1250 mcg (78962 units) capsule clotrimazole (LOTRIMIN) 1 % external [...] 200 MG 24 hr tablet nystatin (MYCOSTATIN) 440182 UNIT/GM external powder pantoprazole (PROTONIX) 40 MG [...] POS Antibody Screen Negative SPECIMEN EXPIRATION DATE [id number] ABO/RH TYPE AND SCREEN Imaging No orders to display Independent Interpretation None ED Course Medications Administered Medications - No data to display Procedures Procedures Discussion of Management Staffed with Dr. Cesar ED Course ED Course as of 12/28/231936Dec 28, 20231838 I evaluated and examined the patient 1902 Rectal exam with RN at bedside Additional Documentation None Medical Decision Making / Diagnosis [facility] Diagnoses: None MIPS None [facility] Leonid Leahy is a 63 [...] 1. Anal fissure K60.2 Adult Colorectal Surgery Pulmonologist Intensivist Referral 2. External hemorrhoids K64.4 Adult Colorectal Surgery Pulmonologist Intensivist Referral Discharge Medications New Prescriptions HYDROCORTISONE, PERIANAL, [...] Pt comes from assisted living facility in [place]. * Tamiko Monzon RN - 12/28/2023 6:08 PM CDT Bed: ED01 Expected date: Expected time: Means of arrival: Comments: [id number] 63Ym documented in this encounter Plan of Treatment Scheduled Referrals Name Type Priority Associated Diagnoses Orde r Schedule Adult Colorectal Surgery Pulmonologist Intensivist Referral Referral Priority: 1-2 Weeks Anal fissure [...] CDT RH BLOOD BANK SPECIMEN EXPIRATION DATE [id number] 12/28/2023 6:28 PM CDT RH BLOOD BANK Blood STRUCTURE OF RIGHT UPPER LIMB / Unknown Venipuncture / Unknown 12/28/2023 6:41 PM CDT 12/28/2023 6:46 PM CDT gAustin Cesar MD LAB - BLOOD BANK TEST O RDER Final Result BLOOD BANK [facility] [place] [address], [facility] * (ABNORMAL) CBC with platelets [...] LAB - BLOOD ORDERABLES Final Result LABORATORY [facility] Acute Care Lab [address] Lab (1st floor, no room number) [place] [address], [facility] * (ABNORMAL) Comprehensive metabolic panel [...] MD LAB - BLOOD ORDERABLES Final Result [facility] Lab [address] Lab (1st floor, no room number) [place] [address] * Partial thromboplastin time (12/28/2023 6:41 PM CDT) aPTT 28 22 - 38 Seconds 12/28/2023 7:00 PM CDT RH LABORATORY Blood STRUCTURE OF RIGHT UPPER LIMB / Unknown Venipuncture / Unknown 12/28/2023 6:41 PM CDT 12/28/2023 6:46 PM CDT Agustin Cesar MD LAB - BLOOD ORDERABLES Final Result [facility] Acute Care Lab [address] Lab (1st floor, no room number) [place] [address] * INR (12/28/2023 6:41 PM CDT) INR 1.01 0.85 - 1.15 12/28/2023 7:00 PM CDT RH LABORATORY Blood STRUCTURE OF RIGHT UPPER LIMB / Unknown Venipuncture / Unknown 12/28/2023 6:41 PM CDT 12/28/2023 6:46 PM CDT us Agustin Cesar MD LAB - BLOOD ORDERABLES Final Result [facility] Acute Care Lab [address] Lab (1st floor, no room number) [place] [address], [facility] documented in this encounter Visit Diagnoses Diagnosis Anal fissure External hemorrhoids External hemorrhoids without mention of complication documented in this encounter Care Teams Rn Residential Relationship Specialty Start Date End Date Services, [facility] Physician [address] [place] [address] PCP - General 05/22/21 Prince Tobar MD [address] [place] [address] Cardiovascular Disease 03/26/22 Prince Tobar MD [address] [place] [address] Assigned Heart and Vascular Provider 05/30/22 documented as of this encounter
--- OUTSIDE RECORDS SUMMARY | 2024-03-09 03:25 | XMS_ITS | Encounter Summary ---
Author Organization [facility] Address [address] [facility] 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 Gender Identity Not on file Sexual Orientation Choose not to disclose 2021 8:14 AM FILM TESTS CHECKER documented as of this encounter Plan of Treatment Not on file documented as of this encounter Visit Diagnoses Not on filedocumented in this encounter Care Teams Last Model Department Supervisor Relationship Specialty Start Date End Date Services, [place] Physician [address] [place] [address], [facility] [address] [place] [address] PCP - General 05/22/21 Prince Tobar MD [address] [place] [address] Cardiovascular Disease 03/26/22 Prince Tobar MD [address] [place] [address] Assigned Heart and Vascular Provider 05/30/22 Matilde Pérez PA-C [address] [place] [id number] Physician Assembly Line Inspector Physician Assembly Line Inspector - Surgical 12/30/23 documented as of this encounter
--- OUTSIDE RECORDS SUMMARY | 2024-03-09 03:25 | XMS_ITS | Encounter Summary ---
Author Organization [facility] Address [address] [facility] [place] [address] Care Team Providers Care Electric Stove Installer Name Role Phone Services, [facility] Physician Primary Care Provi sadia Prince Tobar MD Unavailable Prince Tobar MD Unavailable Matilde Pérez PA-C Unavailable [phone] Reason for Visit * Reason Comments Hyperglycemia Social Work Services Encounter Details Date Type Department Care Team (Late st Contact Info) Description 03/07/2024 5:35 PM CDT - 03/08/2024 8:21 PM CDT Emergency [facility] Emergency Dept [address] [place] [address] Sandra Monroy MD [facility] [address] [place] [id number] Tex David MD [facility] [address] [place] [address] Vera Lopez DO [facility] [address] [place] [address] Hyperglycemia (Primary Dx); Urinary tract infection [...] on file Legal Sex Male 3:35 AM TAG CLERK Gender Identity Not on file Sexual Orientation Choose not to disclose 2021 8:14 AM TAG CLERK documented as of this encounter Last Filed [...] Everywhere. * UTI (Urinary Tract Infection): Male (Tongan) * Hyperglycemia: General Info (Tongan) documented in this encounter Medications at Time [...] mouth daily cholecalciferol (VITAMIN D3) 1250 mcg (54523 units) capsule Take 1,250 mcg by mouth [...] 200 mg by mouth daily nystatin (MYCOSTATIN) 189666 UNIT/GM external powder Apply topically 2 times [...] this encounter Consult Notes * Teresa Alexander, [facility] - 03/08/2024 5:47 PM CDTAssociated Order(s): CARE MANAGEMENT / SOCIAL WORK IP CONSULT; CARE MANAGEMENT / SOCIAL WORK IP CONSULT Summary: Discharge Planning Care Management Medical Shelter Outpatient Consult Care management consulted by provider for mcfp assessment. CM spoke with provider to discuss mcfp case. Provider has confirmed patient is medically stable for discharge. Background information: Patient was brought into the ED via EMS because of blood sugars and the [facility] didn't have any insulin or pens for insulin to give them. Care team recommended discharge disposition: Return to his pen[facility] Resources needed for discharge: needs medications, insulin and pens Discharge plan secured to meet patient's needs? Yes Estimated timeline for discharge: less than 24 hours Barriers to discharge: Getting patient insulin Discussed above with provider & account director. Next steps: Anticipate patient will discharge within the next 24 hours to penitentiary with medication support/resources for follow-up. Patient has an established discharge plan that can meet their needs as identified above. AGATA met with patient, all he wants to do is return to the penitentiary. AGATA spoke with patient guardian, Joycelyn reported that the penitentiary is having difficulty getting patient's insulin. She reports it is due to the penitentiary changing pharmacies. AGATA verified patient's MA number which is active. Several calls placed to penitentiary's pharmacy, [facility]. They wee not able to verified medications. Spoke with the RN at the penitentiary,Fany [phone]. She reports that she has been calling pharmacy for the insulin but has not received it. [facility] is a mail in pharmacy so penitentiary isn't sure when they will get the insulin. AGATA discussed with MD and charge nurse, plan was to see if the medications can be filled here. Once patient's insulin and pen can be verified. Patient will return to penitentiary via wheelchair. ACE Palacio Manufacturing Assistant Inpatient Care Coordination Seismograph Observer Senior Ui Developer [facility] [phone] ACE Haque documented in this encounter ED Notes * Lena Mathis RN - 03/08/2024 5:18 PM CDT Spoke with Fany, nurse regional environmental manager several times. She accepted report and [...] male with history of DM presenting from penitentiary. He reports facility ran out of insulin [...] - 03/07/2024 7:53 PM CDT Fany Nurse Cabin Agent at the [facility] phone: [phone]. Dianne Pre Sales Technical Consultant: [phone] Fany states pt receives Humulin 100u TID [...] hyperglycemia and social work issue. Patientreports his penitentiary staff checked his blood sugar to be high. He states he does not feel sick. No fever, headache, chest pain, or diarrhea. Per EMS, penitentiary facility informed them that insulin ran out [...] MG tablet cholecalciferol (VITAMIN D3) 1250 mcg (20866 units) capsule clotrimazole (LOTRIMIN) 1 % external [...] hr tablet nitroGLYcerin 0.2% ointment nystatin (MYCOSTATIN) 168390 UNIT/GM external powder pantoprazole (PROTONIX) 40 MG [...] TID and Basaglar 30 units BID. Sandra [phone] I spoke with Andressa, pharmacist, regarding the patient. Wed Mar 08, 20246 Tried to talk to about dispo planning 124 I reassessed the patient and discussed plan. He agrees. Additional Documentation None Medical Decision Making / Diagnosis [facility] Diagnoses: None MIPS None MDM Leonid Leahy [...] deemed safe to go back to his penitentiary. It is also quite difficult to get a hold of the penitentiary staff. Therefore we will watch the patient [...] 03/07/2024 5:01 PM CDT Patient THAD from penitentiary for concerns of hyperglycemia. Upon EMS arrival [...] Emergency Department Pharmacist Note: Prescriptions sent to [facility] pharmacy for Lantus and Humulin U-500 pens. [facility] pharmacy called and is unable to fill the Lantus as refill too soon. Attempted to call pt's [facility] but they are closed. So called Nurse Cabin Agent, Fany, for the penitentiary #[phone]. She stated that [facility] was able to fill both the Basaglar and Humulin U-500 pens yesterday and today and both are being delivered tonight. She was told that the Humulin U-500 would be delivered between 3144-1992 and the Basaglar would be delivered after [...] U-500 is being delivered tonight. Spoke with [facility], they only have one U-500 pen in stock and so will dispense the one pen. This will be enough to get patient by until the [facility] delivery is delivered to his penitentiary this evening after 1999. No further action required. Andressa Buitrago, PharmD, [facility] Emergency Medicine Pharmacist [phone] or Deven March 08, 2024 documented in this encounter Plan of Treatment [...] BEAKER POCT Final Re sult RH LABORATORY [facility] Acute Care Lab [address] [facility] Lab (1st floor, no room number) [place] [address], [facility] * (ABNORMAL) Glucose by meter (03/08/2024 4:21 PM CDT) GLUCOSE BY METER POCT 192(H) 70 - 99 mg/dL 03/08/2024 4:34 PM CDT RH LABORATORY POC Blood, Capillary BLOOD SPECIMEN / Unknown 03/08/2024 4:21 PM CDT 03/08/2024 4:34 PM CDT Vera Lopez DO LAB - BEAKER POCT Final Re sult RH LABORATORY [facility] Acute Care Lab [address] Lab (1st floor, no room number) [place] [address], [facility] * (ABNORMAL) Glucose by meter (03/08/2024 12:20 PM CDT) GLUCOSE BY METER POCT 202(H) 70 - 99 mg/dL 03/08/2024 12:26 PM CDT LABORATORY POC Blood, Capillary BLOOD SPECIMEN / Unknown 03/08/2024 12:20 PM CDT 03/08/2024 12:26 PM CDT Vera Vergarauziel OSUNA LAB - BEAKER POCT Final Re sult LABORATORY [facility] Care Lab [address] Lab (1st floor, no room number) [place] [address], [facility] * (ABNORMAL) UA with Microscopic (03/08/2024 8:29 AM CDT) Color Urine Dark Brown(A) Colorless, Straw, Light Yellow, Yellow 03/08/2024 8:53 AM CDT LABORATORY Appearance Urine Cloudy(A) Clear 03/08/20 8:53 AM CDT LABORATORY Glucose Urine >=1000(A) Negative mg/dL 03/08/2024 8:53 AM CDT LABORATORY Bilirubin Urine Negative Negative 8:53 AM CDT LABORATORY Ketones Urine Negative Negative mg/dL 03/08/2024 8:53 AM CDT LABORATORY Specific [place] Urine 1.023 1.003 - 1.035 03/08/2024 8:53 [...] LAB - URINE ORDERABLES Fin al Result [facility] Lab [address] Lab (1st floor, no room number) [place] [address] * (ABNORMAL) Glucose by meter (03/08/2024 8:07 AM CDT) GLUCOSE BY METER POCT 294(H) 70 - 99 mg/dL 03/08/2024 8:20 AM CDT LABORATORY POC Blood, venous BLOOD SPECIMEN / Unknown 03/08/2024 8:07 AM CDT 03/08/2024 8:20 AM CDT Tex RIVERO - BEAKER POCT Final Resu lt [facility] Lab [address] Lab (1st floor, no room number) [place] [address], [facility] * (ABNORMAL) Glucose by meter (03/08/2024 5:58 AM CDT) GLUCOSE BY METER POCT 346(H) 70 - 99 mg/dL 03/08/2024 6:05 AM CDT LABORATORY POC Blood, Capillary BLOOD SPECIMEN / Unknown 03/08/2024 5:58 AM CDT 03/08/2024 6:05 AM CDT Tex David MD LAB - BEAKER POCT Final Resu lt LABORATORY [facility] Lab [address] Lab (1st floor, no room number) [place] [address], [facility] * (ABNORMAL) Glucose by meter (03/08/2024 4:10 AM CDT) GLUCOSE BY METER POCT 413(H) 70 - 99 mg/dL 03/08/2024 4:17 AM CDT LABORATORY POC Blood, Capillary BLOOD SPECIMEN / Unknown 03/08/2024 4:10 AM CDT 03/08/2024 4:17 AM CDT Tex David MD LAB - BEAKER POCT Final Resu lt LABORATORY [facility] Lab [address] Lab (1st floor, no room number) [place] [address], [facility] * (ABNORMAL) Glucose by meter (03/08/2024 2:54 AM CDT) GLUCOSE BY METER POCT 347(H) 70 - 99 mg/dL 03/08/2024 3:01 AM CDT LABORATORY POC Blood, Capillary BLOOD SPECIMEN / Unknown 03/08/2024 2:54 AM CDT 03/08/2024 3:01 AM CDT Tex David MD LAB - BEAKER POCT Final Resu lt LABORATORY [facility] Lab [address] Lab (1st floor, no room number) [place] [id number] * (ABNORMAL) Glucose by meter (03/08/2024 1:48 AM CDT) GLUCOSE BY METER POCT 401(H) 70 - 99 mg/dL 03/08/2024 2:31 AM CDT LABORATORY POC Blood, Capillary BLOOD SPECIMEN / Unknown 03/08/2024 1:48 AM CDT 03/08/2024 2:31 AM CDT Sandra Monroy MD LAB - BEAKER POCT Final Re sult Performing Organization Address [facility]/ZIP Co de Phone Number LABORATORY [facility] Lab [address] Lab (1st floor, no room number) [place] [phone] [place] [address] * (ABNORMAL) Basic metabolic panel (BMP) (03/07/2024 9:50 PM CDT) [facility] Sodium 133(L) 135 - 145 mmol/L 03/07/2024 [...] BLOOD ORDERABLES Fin al Result RH LABORATORY [facility] Acute Care Lab [address] [facility] Lab (1st floor, no room number) [place] [address], [facility] * (ABNORMAL) Blood gas venous (03/07/2024 8:06 [...] ORDERABLES Fin al Result Performing Organization Address [facility] Co de Phone Number [facility] Lab [address] Lab (1st floor, no room number) [address] * (ABNORMAL) Ketone Beta-Hydroxybutyrate Quantitative (03/07/2024 7:02 PM CDT) Ketone (Beta-Hydroxybuty rate) Quantitative 0.44(H) <=0.30 mmol/L 03/07/2024 8:09 PM CDT RH LABORATORY Blood STRUCTURE OF RIGHT UPPER LIMB / Unknown Venipuncture / Unknown 03/07/2024 7:02 PM CDT 03/07/2024 7:07 PM CDT us Sandra Monroy MD LAB - BLOOD ORDERABLES Fin al Result [facility] Lab [address] Lab (1st floor, no room number) [address] * (ABNORMAL) Glucose by meter (03/07/2024 7:02 PM CDT) GLUCOSE BY METER POCT 388(H) 70 - 99 mg/dL 03/07/2024 7:09 PM CDT RH LABORATORY POC Blood, venous BLOOD SPECIMEN / Unknown 03/07/2024 7:02 PM CDT 03/07/2024 7:09 PM CDT us Sandra Monroy MD LAB - BEAKER POCT Final Re sult LABORATORY POC [facility] Care Lab [address] Lab (1st floor, no room number) [place] [address], [place] * Extra Purple Top Tube (03/07/2024 7:02 PM CDT) Hold Specimen [facility] 03/07/2024 8:07 PM CDT RH LABORATORY Blood STRUCTURE OF RIGHT UPPER LIMB / Unknown Venipuncture / Unknown 03/07/2024 7:02 PM CDT 03/07/2024 7:07 PM CDT us Sandra Monroy MD LAB - BLOOD ORDERABLES Fin al Result [facility] Lab [address] Lab (1st floor, no room number) [place] [phone] [place] [address] * Extra Red Top Tube (03/07/2024 7:02 PM CDT) Hold Specimen [facility] 03/07/2024 8:07 PM CDT RH LABORATORY Blood STRUCTURE OF RIGHT UPPER LIMB / Unknown Venipuncture / Unknown 03/07/2024 7:02 PM CDT 03/07/2024 7:07 PM CDT us Sandra Monroy MD LAB - BLOOD ORDERABLES Fin al Result [facility] Care Lab [address] Lab (1st floor, no room number) [place] [address] * Extra Blue Top Tube (03/07/2024 7:02 PM CDT) Hold Specimen [facility] 03/07/2024 8:07 PM CDT RH LABORATORY Blood STRUCTURE OF RIGHT UPPER LIMB / Unknown Venipuncture / Unknown 03/07/2024 7:02 PM CDT 03/07/2024 7:07 PM CDT us Sandra Monroy MD LAB - BLOOD ORDERABLES Fin al Result LABORATORY [facility] Acute Care Lab [address] [facility] Lab (1st floor, no room number) [place] [address], [facility] * (ABNORMAL) Basic metabolic panel (03/07/2024 7:02 [...] - BLOOD ORDERABLES Fin al Result LABORATORY [facility] Acute Care Lab [address] Lab (1st floor, no room number) [place] [address], [facility] documented in this encounter Visit [...] sadia: Anel Willett RN)[phone] ($Given - Provider: aRe Irene RN - Comment: spoke to pharmacy- [...] STARLA) documented in this encounter Care Teams Electric Stove Installer Relationship Specialty Start Date End Date Services, [facility] Physician [address] [place] [address] PCP - General 05/22/21 Prince Tobar MD [address] [place] [id number] Cardiovascular Disease 03/26/22 Prince Tobar MD [address] [place] [address] [phone] Assigned Heart and Vascular Provider 05/30/22 Matilde Pérez PA-C [address] [place], [place] [phone] Physician Starch Treating Assistant Physician Starch Treating Assistant - Surgical 12/30/23 documented as of this encounter
--- OUTSIDE RECORDS SUMMARY | 2024-03-09 03:25 | XMS_ITS | Referral Summary ---
Author Organization [facility] Address [address] [facility] [place] [address] Care Team Providers Care Account Manager B2B Name Role Phone Services, [facility] Physician Primary Care Provi sadia Prince Tobar MD Unavailable Prince Tobar MD Unavailable Matilde Pérez PA-C Unavailable Encounters Date Type Department Care Team Description 03/08/2024 PRE VISIT [facility] [address] 4th [place] [address] Matilde Pérez PA-C Previsit 03/07/2024 5:35 PM CDT - 03/08/2024 8:21 PM CDT Emergency [facility] Emergency Dept [address] [place] [address] Sandra Monroy MD [place], Samuel, MD McDonald, Lindsey E, DO Hyperglycemia (Primary Dx); Urinary tract infection with hematuria, site unspecified Discharge Disposition: Home or Self Care 03/07/2024 Travel 12/28/2023 6:08 PM CDT - 12/29/2023 12:59 AM CDT Emergency [facility] Emergency Dept [address] [place] [address] Agustin Cesar MD Anal fissure; External hemorrhoids [...] daily Active cholecalciferol (VITAMIN D3) 1250 mcg (16594 units) capsule Take 1,250 mcg by mouth every 7 days on Wednesdays. 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 Gender Identity Not on file Sexual Orientation Choose not to disclose 2021 8:14 AM FULL STACK SOFTWARE ENGINEER Last Filed Vital Signs Vital Sign Reading [...] without heart failure Atherosclerotic heart disease of [place] coronary artery without angina pectoris Body mass [...] - BEAKER POCT Final Re sult LABORATORY [facility] Acute Care Lab [address] [facility] Lab (1st floor, no room number) [place] [address] * (ABNORMAL) UA with [...] mg/dL 03/08/2024 8:53 AM CDT LABORATORY Specific [place] Urine 1.023 1.003 - 1.035 03/08/2024 8:53 [...] - URINE ORDERABLES Fin al Result LABORATORY [facility] Acute Care Lab [address] Lab (1st floor, no room number) [place] [address] * (ABNORMAL) Basic metabolic [...] BLOOD ORDERABLES Fin al Result RH LABORATORY [facility] Acute Care Lab [address] [facility] Lab (1st floor, no room number) [place] [address], [facility] * (ABNORMAL) Blood gas venous (03/07/2024 [...] ORDERABLES Fin al Result Performing Organization Address City/[facility]/ZIP Co de Phone Number [facility] Lab [address] Lab (1st floor, no room number) [place] [address], [place] * Extra Purple Top Tube (03/07/2024 7:02 PM CDT) Hold Specimen [facility] 03/07/2024 8:07 PM CDT RH LABORATORY Blood STRUCTURE OF RIGHT UPPER LIMB / Unknown Venipuncture / Unknown 03/07/2024 7:02 PM CDT 03/07/2024 7:07 PM CDT us Sandra Monroy MD LAB - BLOOD ORDERABLES Fin al Result [facility] Care Lab [address] Lab (1st floor, no room number) [place] [address] * Extra Red Top Tube (03/07/2024 7:02 PM CDT) Hold Specimen [facility] 03/07/2024 8:07 PM CDT RH LABORATORY Blood STRUCTURE OF RIGHT UPPER LIMB / Unknown Venipuncture / Unknown 03/07/2024 7:02 PM CDT 03/07/2024 7:07 PM CDT Sandra Monroy MD LAB - BLOOD ORDERABLES Fin al Result [facility] Care Lab [address] Lab (1st floor, no room number) [place] [address] * Extra Blue Top Tube (03/07/2024 7:02 PM CDT) Hold Specimen [facility] 03/07/2024 8:07 PM CDT LABORATORY Blood STRUCTURE OF RIGHT UPPER LIMB / Unknown Venipuncture / Unknown 03/07/2024 7:02 PM CDT 03/07/2024 7:07 PM CDT Sandra Monroy MD LAB - BLOOD ORDERABLES Fin al Result Performing Organization Address [facility] Co de Phone Number [facility] Lab [address] Lab (1st floor, no room number) [place] [address], [facility] * (ABNORMAL) Ketone Beta-Hydroxybutyrate Quantitative (03/07/2024 7:02 PM CDT) [facility] Ketone (Beta-Hydroxybuty rate) Quantitative 0.44(H) <=0.30 mmol/L 03/07/2024 8:09 PM CDT LABORATORY Blood STRUCTURE OF RIGHT UPPER LIMB / Unknown Venipuncture / Unknown 03/07/2024 7:02 PM CDT 03/07/2024 7:07 PM CDT Sandra Monroy MD LAB - BLOOD ORDERABLES Fin al Result [facility] Care Lab [address] Lab (1st floor, no room number) [place] [address], [facility] * (ABNORMAL) CBC with platelets and differential (12/28/2023 6:41 PM CDT) [facility] WBC Count 5.9 4.0 - [...] - BLOOD ORDERABLES Final Result RH LABORATORY [facility] Acute Care Lab [address] Lab (1st floor, no room number) [place] [address] * Adult Type and Screen (12/28/2023 6:41 PM CDT) ABO/RH(D) A POS 12/28/2023 6:28 PM CDT RH BLOOD BANK Antibody Screen Negative Negative 12/28/2023 6:28 PM CDT RH BLOOD BANK SPECIMEN EXPIRATION DATE [id number] 12/28/2023 6:28 PM CDT RH BLOOD BANK Blood STRUCTURE OF RIGHT UPPER LIMB / Unknown Venipuncture / Unknown 12/28/2023 6:41 PM CDT 12/28/2023 6:46 PM CDT Agustin Cesar MD LAB - BLOOD BANK TEST O RDER Final Result RH BLOOD BANK [address] [place] [address] * INR (12/28/2023 6:41 PM CDT) INR 1.01 0.85 - 1.15 12/28/2023 7:00 PM CDT RH LABORATORY Blood STRUCTURE OF RIGHT UPPER LIMB / Unknown Venipuncture / Unknown 12/28/2023 6:41 PM CDT 12/28/2023 6:46 PM CDT Agustin Cesar MD LAB - BLOOD ORDERABLES Final Result LABORATORY [facility] Care Lab [address] Lab (1st floor, no room number) [place] [address] * Partial thromboplastin time (12/28/2023 6:41 PM CDT) aPTT 28 22 - 38 Seconds 12/28/2023 7:00 PM CDT LABORATORY Blood STRUCTURE OF RIGHT UPPER LIMB / Unknown Venipuncture / Unknown 12/28/2023 6:41 PM CDT 12/28/2023 6:46 PM CDT Agustin Cesar MD LAB - BLOOD ORDERABLES Final Result Performing Organization Address City/[facility]/ZIP Co de Phone Number LABORATORY [facility] Acute Care Lab [address] Lab (1st floor, no room number) [place] [address], [facility] * (ABNORMAL) Comprehensive metabolic [...] - BLOOD ORDERABLES Final Result RH LABORATORY [facility] Acute Care Lab [address] Lab (1st floor, no room number) [place] [address], [facility] * (ABNORMAL) Hemoglobin A1c (10/15/2023 3:13 PM CDT) Hemoglobin A1C 10.8(H) <5.7 % 10/15/2023 4:57 PM CDT RH LABORATORY Comment: Normal <5.7% Prediabetes 5.7-6.4% ?? Diabetes 6.5% or higher Note: Adopted from ADA consensus guidelines. Blood BLOOD SPECIMEN / Unknown Client Draw / Unknown 10/15/2023 3:13 PM CDT 10/15/2023 4:25 PM CDT Harrison Munson KIMBERLY LAB - BLOOD ORDERABLES Final Result [facility] Acute Care Lab [address] Lab (1st floor, no room number) [place] [address], [facility] from Last 3 Months or Most Recently Relevant to Health Maintenance Insurance [place] Advance Directives For more information, please contact: [phone] Documents on File Type Date Recorded Patient Biology Internship Expl anation Advance Directives and Living Will [...] patie nt/ legal decision maker Care Teams Account Manager B2B Relationship Specialty Start Date End Date Services, [facility] Physician [address] [place] [address] PCP - General 05/22/21 Prince Tobar MD [address] [place] [address] Cardiovascular Disease 03/26/22 Prince Tobar MD [address] [place], [place] [address] Assigned Heart and Vascular Provider 05/30/22 Matilde Pérez PA-C [address] [place] [phone] Physician Certified Medical Coding Specialist Physician Certified Medical Coding Specialist - Surgical 12/30/23
--- OUTSIDE RECORDS SUMMARY | 2024-03-09 03:25 | XMS_ITS | Clinical Summary ---
Author Organization [place] Address [address] [facility] [place] [address] Care Team Providers Care Health/Safety Job Titles Name Role Phone Services, [facility] Physician Primary Care Provi sadia Prince Tobar MD Unavailable Prince Tobar MD Unavailable Matilde Pérez PA-C Unavailable [phone] Allergies Active Allergy Reactions Criticality Noted Date [...] daily Active cholecalciferol (VITAMIN D3) 1250 mcg (01329 units) capsule Take 1,250 mcg by mouth every 7 days on Wednesdays. Active venlafaxine (EFFEXOR-XR) 75 MG 24 hr capsule Take 225 mg by mouth daily Active hydrALAZINE (APRESOLINE) 50 MG tablet Take 50 mg by mouth 4 times daily Active polyethylene glycol (MIRALAX) 17 GM/Dose powder Take 17 g by mouth daily Active nystatin (MYCOSTATIN) 752387 UNIT/GM external powder Apply topically 2 times [...] Department Care Team Description 03/08/2024 PRE VISIT [facility] [address] [address] Matilde Pérez PA-C Previsit 03/07/2024 5:35 PM CDT - 03/08/2024 8:21 PM CDT Emergency [facility] Emergency Dept [address] [place] [address] Sandra Monroy MD [place], Samuel, MD McDonald, Lindsey E, Hyperglycemia (Primary Dx); Urinary tract infection with hematuria, site unspecified Discharge Disposition: Home or Self Care 03/07/2024 Travel 12/28/2023 6:08 PM CDT - 12/29/2023 12:59 AM CDT Emergency [facility] Emergency Dept [address] [place] [address] Agustin Cesar MD Anal fissure; External hemorrhoids Discharge Disposition: Home or Self Care 12/28/2023 Travel from Last 3 Months Immunizations Name Administration Dates Next Due COVID-19 MONOVALENT 12+ (Pfizer) 06/25/2020,05/17 [id number] Novel Flu 05/07/2009 Hepatitis B, Adult 02/16/2014,10/12/2013, [...] on file 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 Gender Identity Not on file Sexual Orientation Choose not to disclose 2021 8:14 AM BLOCK HACKER Last Filed Vital Signs Vital Sign Reading [...] without heart failure Atherosclerotic heart disease of [place] coronary artery without angina pectoris Body mass [...] POCT Final Re sult [facility] LABORATORY POC [facility] [address] [facility], no room number) [place] [address] * (ABNORMAL) UA with Microscopic (03/08/2024 8:29 AM CDT) Color Urine Dark Brown(A) Colorless, Straw, Light Yellow, Yellow 03/08/2024 8:53 AM CDT LABORATORY Appearance Urine Cloudy(A) Clear 03/08/20 8:53 AM CDT LABORATORY Glucose Urine >=1000(A) Negative mg/dL 03/08/2024 8:53 AM CDT LABORATORY Bilirubin Urine Negative Negative 8:53 AM CDT LABORATORY Ketones Urine Negative Negative mg/dL 03/08/2024 8:53 AM CDT LABORATORY Specific [place] Urine 1.023 1.003 - 1.035 03/08/2024 8:53 [...] - URINE ORDERABLES Fin al Result LABORATORY [facility] [address] Lab (1st floor, no room number) [place] [address], [facility] * (ABNORMAL) Basic metabolic panel (BMP) [...] BLOOD ORDERABLES Fin al Result RH LABORATORY [facility] [address] [facility] Lab (1st floor, no room number) [place] [address], [facility] * (ABNORMAL) Blood gas venous (03/07/2024 [...] ORDERABLES Fin al Result Performing Organization Address City/[facility]/ZIP Co de Phone Number [facility] [address] [employer] Lab (1st floor, no room number) [address] * Extra Purple Top Tube (03/07/2024 7:02 PM CDT) Hold Specimen [facility] 03/07/2024 8:07 PM CDT RH LABORATORY Blood STRUCTURE OF RIGHT UPPER LIMB / Unknown Venipuncture / Unknown 03/07/2024 7:02 PM CDT 03/07/2024 7:07 PM CDT Sandra Monroy MD LAB - BLOOD ORDERABLES Fin al Result Performing Organization Address [facility] Co de Phone Number [facility] Acute Care Lab [address] Lab (1st floor, no room number) [address] * Extra Red Top Tube (03/07/2024 7:02 PM CDT) Hold Specimen JI 03/07/2024 8:07 PM CDT RH LABORATORY Blood STRUCTURE OF RIGHT UPPER LIMB / Unknown Venipuncture / Unknown 03/07/2024 7:02 PM CDT 03/07/2024 7:07 PM CDT Sandra Monroy MD LAB - BLOOD ORDERABLES Fin al Result Performing Organization Address City/[facility] Co de Phone Number LABORATORY [facility] [address] Lab (1st floor, no room number) [place] [phone] [place] [address] * Extra Blue Top Tube (03/07/2024 7:02 PM CDT) Hold Specimen JIC 03/07/2024 8:07 PM CDT LABORATORY Blood STRUCTURE OF RIGHT UPPER LIMB / Unknown Venipuncture / Unknown 03/07/2024 7:02 PM CDT 03/07/2024 7:07 PM CDT us Sandra Monroy MD LAB - BLOOD ORDERABLES Hemant al Result Performing Organization Address [facility]/ZIP Co de Phone Number [facility] Lab [address] Lab (1st floor, no room number) [place] [phone] * (ABNORMAL) Ketone Beta-Hydroxybutyrate Quantitative (03/07/2024 7:02 PM CDT) Pathologist [facility] Ketone (Beta-Hydroxybuty rate) Quantitative 0.44(H) <=0.30 mmol/L 03/07/2024 8:09 PM CDT LABORATORY Blood STRUCTURE OF RIGHT UPPER LIMB / Unknown Venipuncture / Unknown 03/07/2024 7:02 PM CDT 03/07/2024 7:07 PM CDT us Sandra Monroy MD LAB - BLOOD ORDERABLES Fin al Result Performing Organization Address City/[facility]/ZIP Co de Phone Number LABORATORY [facility] [address] Lab (1st floor, no room number) [place] [phone], [facility] * (ABNORMAL) [...] - BLOOD ORDERABLES Final Result RH LABORATORY [facility] [address] [employer] Lab (1st floor, no room number) [place] [address] * Adult Type and Screen (12/28/2023 6:41 PM CDT) ABO/RH(D) A POS 12/28/2023 6:28 PM CDT RH BLOOD BANK Antibody Screen Negative Negative 12/28/2023 6:28 PM CDT RH BLOOD BANK SPECIMEN EXPIRATION DATE [id number] 12/28/2023 6:28 PM CDT RH BLOOD BANK Blood STRUCTURE OF RIGHT UPPER LIMB / Unknown Venipuncture / Unknown 12/28/2023 6:41 PM CDT 12/28/2023 6:46 PM CDT Agustin Cesar MD LAB - BLOOD BANK TEST O RDER Final Result RH BLOOD BANK [address] [place] [address] * INR (12/28/2023 6:41 PM CDT) INR 1.01 0.85 - 1.15 12/28/2023 7:00 PM CDT RH LABORATORY Blood STRUCTURE OF RIGHT UPPER LIMB / Unknown Venipuncture / Unknown 12/28/2023 6:41 PM CDT 12/28/2023 6:46 PM CDT Agustin Cesar MD LAB - BLOOD ORDERABLES Final Result Performing Organization Address City/[facility]/ZIP Co de Phone Number LABORATORY [facility] [address] Lab (1st floor, no room number) [place] [address] * Partial thromboplastin time (12/28/2023 6:41 PM CDT) aPTT 28 22 - 38 Seconds 12/28/2023 7:00 PM CDT LABORATORY Blood STRUCTURE OF RIGHT UPPER LIMB / Unknown Venipuncture / Unknown 12/28/2023 6:41 PM CDT 12/28/2023 6:46 PM CDT Agustin Cesar MD LAB - BLOOD ORDERABLES Final Result Performing Organization Address [facility]/ZIP Co de Phone Number LABORATORY [facility] [address] Lab (1st floor, no room number) [place] [address] * (ABNORMAL) Comprehensive [...] LAB - BLOOD ORDERABLES Final Result LABORATORY [facility] [address] [facility] Lab (1st floor, no room number) [place] [address] * (ABNORMAL) Hemoglobin A1c [...] NP LAB - BLOOD ORDERABLES Final Result [facility] Acute [facility] Lab [address] Lab (1st floor, no room number) [place] [address], [facility] from Last 3 Months or Most Recently Relevant to Health Maintenance Insurance [place] Advance Directives For more information, please contact: [phone] Documents on File Type Date Recorded Patient Logistics Planner Expl anation Advance Directives and Living Will [...] yissel nt/ legal decision maker Care Teams Health/Safety Job Titles Relationship Specialty Start Date End Date Services, [facility] Physician [address] [place] [address] PCP - General 05/22/21 Prince Tobar MD [address] [place] [address] [phone] Cardiovascular Disease 03/26/22 Prince Tobar MD [address] [place] [address] [phone] Assigned Heart and Vascular Provider 05/30/22 Matilde Pérez PA-C [address] [place] [address] Physician Fbi Field Agent Physician Fbi Field Agent - Surgical 12/30/23
--- OUTSIDE RECORDS SUMMARY | 2024-03-09 03:25 | XMS_ITS | Encounter Summary ---
Author Organization [place] Address [address] [facility] [place] [address] Care Team Providers Care Vending Route Servicer Name Role Phone Services, [facility] Physician Primary Care Provi sadia Prince Tobar MD Unavailable Prince Tobar MD Unavailable Matilde Pérez PA-C Unavailable [phone] Reason for Visit * Reason Onset Date Comments Previsit 03/08/2024 Encounter Details Date Type Department Care Team (Late st Contact Info) Description 03/08/2024 PRE VISIT [facility] [address] [place] [address] Matilde Pérez PA-C [address] [place] [address] Previsit Social History Tobacco Use Types [...] on file 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 Cesar [...] on filedocumented in this encounter Care Teams Vending Route Servicer Relationship Specialty Start Date End Date Services, [facility] Physician [address] [place] [address] PCP - General 05/22/21 Prince Tobar MD [address] [place] [address] Cardiovascular Disease 03/26/22 Prince Tobar MD [address] [place] [address] Assigned Heart and Vascular Provider 05/30/22 Matilde Pérez PA-C [address] [place] [address] [phone] Physician Cylinder Block Hole Reliner Physician Cylinder Block Hole Reliner - Surgical 12/30/23 documented as of this encounter
--- OUTSIDE RECORDS SUMMARY | 2024-03-09 03:25 | XMS_ITS | Encounter Summary ---
Author Organization [place] Address [address] [facility] 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 Gender Identity Not on file Sexual Orientation Choose not to disclose 2021 8:14 AM VIDEO GAME TECHNICIAN documented as of this encounter Plan of Treatment Not on file documented as of this encounter Visit Diagnoses Not on filedocumented in this encounter Care Teams Credit Manager Relationship Specialty Start Date End Date Services, [facility] Physician [address] [place] [address] PCP - General 05/22/21 Prince Tobar MD [address] [place], [place] [phone] Cardiovascular Disease 03/26/22 Prince Tobar MD [address] [place] [address] Assigned Heart and Vascular Provider 05/30/22 documented as of this encounter
== END 2024-03-05 10:38 | disposition home or self-care (01) ==
PROVIDERS: Visit Provider Family Medicine
DX: E11.65 Type 2 diabetes mellitus with hyperglycemia (principal)
CPT/HCPCS: A0425; A0429

== ENCOUNTER 2024-03-05 11:08 | Emergency (ER) | payer MEDICARE, MEDICAID, SELFPAY ==
[2024-03-05] VITALS (18 sets, daily range): BP systolic 137–142; BP diastolic 52–59; PULSE 79–85; RESP 16–24; TEMP 36.9; O2SAT 91–97; BMI 61.3
--- NOTE | 2024-03-05 11:31 | ED_ITS ---
HPI - General Adult General Date Seen: 03/05/24 Chief complaint: Diabetic Related Problem Stated complaint: Diabetic complications Time Seen by Provider: 03/05/24 11:14 Source: patient Mode of arrival: EMS Limitations: no limitations History of Present Illness HPI narrative: Patient is a 63-year-old male with a history of chronic kidney disease, type 2 diabetes, coronary artery disease, obesity presenting to the emergency department for hyperglycemia. He states his blood sugars usually in the 200s in today when he checked it was 470. He states his blood sugar is checked twice a day. He lives at the [facility]. States he has been taking his diabetes medication but does not know what they are. Does states he is post be on insulin but he is not being provided the needles to get the insulin. He states the workers at the [employer] provide his medication. He also states he is having abdominal pain that started this morning throughout his abdomen, headache and right-sided chest pain that started a couple days ago. Denies fevers, chills, shortness of breath, diarrhea, constipation, dysuria, vision changes, weakness, numbness, hematochezia, melena. Related Data Home Medications ?Medication ?Instructions ?Recorded ?Confirmed amlodipine 10 mg tablet 10 mg PO DAILY 03/07/22 02/20/24 apixaban 5 mg tablet (Eliquis) 5 mg PO BID 03/07/22 02/20/24 aripiprazole 15 mg tablet 7.5 mg PO DAILY 03/07/22 02/20/24 aspirin 81 mg tablet,delayed 81 mg PO DAILY 03/07/22 02/21/24 release carbamazepine 200 mg tablet 200 mg PO BID 03/07/22 02/20/24 chlorthalidone 25 mg tablet 25 mg PO DAILY 03/07/22 02/20/24 ezetimibe 10 mg tablet 10 mg PO DAILY 03/07/22 02/20/24 hydralazine 50 mg tablet 50 mg PO QID 03/07/22 02/20/24 pantoprazole 40 mg tablet,delayed 40 mg PO DAILY 03/07/22 02/20/24 release polyethylene glycol 3350 17 17 g PO DAILY 03/07/22 02/21/24 gram/dose oral powder pregabalin 100 mg capsule 100 mg PO QAM 03/07/22 02/20/24 pregabalin 150 mg capsule 150 mg PO HS 03/07/22 02/20/24 torsemide 20 mg tablet 20 mg PO DAILY 03/07/22 02/20/24 venlafaxine 75 mg capsule,extended 225 mg PO DAILY 03/07/22 02/20/24 release 24 hr acetaminophen 500 mg tablet 500 mg PO Q6H 06/13/22 02/21/24 albuterol sulfate 90 mcg/actuation 1 inh inhalation Q4H PRN 06/13/22 02/21/24 aerosol inhaler bronchospasm diphenhydramine HCl 50 mg capsule 50 mg PO Q6H PRN itching 06/13/22 02/21/24 (Banophen) icosapent ethyl 1 gram capsule 2 g PO BID 06/13/22 02/21/24 (Vascepa) insulin regular hum U-500 conc 500 100 unit subcut TID 06/13/22 02/20/24 unit/mL(3 mL) subcut pen (Humulin R U-500 (Conc) Insulin Kwikpen) ketoconazole 2 % shampoo 1 applic topical Q3D 06/13/22 02/21/24 loperamide 2 mg capsule 2 mg PO Q6H PRN loose stool 06/13/22 02/21/24 nystatin 100,000 unit/gram topical 1 applic topical BID PRN 06/13/22 02/20/24 powder sennosides 8.6 mg tablet (senna) 8.6 mg PO DAILY 06/13/22 02/21/24 clotrimazole 1 % topical cream 1 applic topical BID 07/25/22 02/21/24 ergocalciferol (vitamin D2) 1,250 50,000 unit PO WE@07/25/22 02/21/24 mcg (50,000 unit) capsule insulin glargine 100 unit/mL (3 30 unit subcut BID 12/27/23 02/20/24 mL) subcutaneous pen (Basaglar KwikPen U-100 Insulin) isosorbide mononitrate 60 mg 60 mg PO DAILY 12/27/23 02/20/24 tablet,extended release 24 hr metoprolol succinate 200 mg 200 mg PO DAILY 12/27/23 02/20/24 tablet,extended release 24 hr semaglutide 1 mg/dose (4 mg/3 mL) 1 mg subcut .weekly 12/27/23 02/21/24 subcutaneous pen injector (Ozempic) carvedilol 25 mg tablet 25 mg PO DAILY 02/20/24 02/20/24 potassium chloride 20 mEq 40 meq PO BID 02/20/24 02/21/24 tablet,extended release(part/cryst) rosuvastatin 40 mg tablet 40 mg PO HS 02/20/24 02/20/24 Previous Rx's ?Medication ?Instructions ?Recorded hydrocortisone 2.5 % topical cream 1 applic topical BID PRN #30 grams 09/14/22 ammonium lactate 12 % lotion 1 applic topical BID #225 grams 04/01/23 cyclobenzaprine 10 mg tablet 10 mg PO HS PRN muscle spasm #20 12/27/23 tabs doxycycline hyclate 100 mg capsule 100 mg PO BID #10 caps 02/21/24 Allergies Allergy/AdvReac Type Severity Reaction Status Date / Time lisinopril Allergy Mild Cough Verified 03/05/24 12:34 metformin AdvReac Verified 03/05/24 [facility] Anemia in chronic kidney disease (CKD) ?N18.9 - Chronic kidney disease, unspecified (ICD-10) ?D63.1 - Anemia in chronic kidney disease (ICD-10) Chronic kidney disease (CKD), stage IV (severe) ?N18.4 - Chronic kidney disease, stage 4 (severe) (ICD-10) DISH (diffuse idiopathic skeletal hyperostosis) ?M48.10 - Ankylosing hyperostosis [[place]], site unspecified (ICD-10) Edema ?R60.9 - Edema, unspecified (ICD-10) Neuropathy ?G62.9 - Polyneuropathy, unspecified (ICD-10) Learning disability ?F81.9 - Developmental disorder of scholastic skills, unspecified (ICD-10) Insomnia ?G47.00 - Insomnia, unspecified (ICD-10) Metabolic syndrome ?E88.810 - Metabolic syndrome (ICD-10) Sensorineural hearing loss (SNHL) of both ears ?H90.3 - Sensorineural hearing loss, bilateral (ICD-10) Tinnitus ?H93.19 - Tinnitus, unspecified ear (ICD-10) Hypercholesterolemia ?E78.00 - Pure hypercholesterolemia, unspecified (ICD-10) Insulin dependent diabetes mellitus Recurrent deep vein thrombosis (DVT) ?I82.409 - Acute embolism and thrombosis of unspecified deep veins of unspecified lower extremity (ICD-10) Hypertension ?I10 - Essential (primary) hypertension (ICD-10) Coronary artery disease ?I25.10 - Atherosclerotic heart disease of [place] coronary artery without angina pectoris (ICD-10) Hypertriglyceridemia ?E78.1 - Pure hyperglyceridemia (ICD-10) Epilepsy ?G40.909 - Epilepsy, unspecified, not intractable, without status epilepticus (ICD-10) TASHI on CPAP ?G47.33 - Obstructive sleep apnea (adult) (pediatric) (ICD-10) ?Z99.89 - Dependence on other enabling machines and devices (ICD-10) Tachypnea ?R06.82 - Tachypnea, not elsewhere classified (ICD-10) Fever ?R50.9 - Fever, unspecified (ICD-10) CKD (chronic kidney disease) ?N18.9 - Chronic kidney disease, unspecified (ICD-10) Gout ?M10.9 - Gout, unspecified (ICD-10) Major depressive disorder ?F32.9 - Major depressive disorder, single episode, unspecified (ICD-10) Type 2 diabetes mellitus ?E11.9 - Type 2 diabetes mellitus without complications (ICD-10) Obesity ?E66.9 - Obesity, unspecified (ICD-10) Surgical History History of cholecystectomy ?Z90.49 - Acquired absence of other specified parts of digestive tract (ICD- 10) Social History Narrative: Lives in a [facility] in [place], [place]. Sisters Brittany Suggs ([phone]) and Blanka Mcduffie ([phone]) listed as contacts and medical decision makers. Paperwork from [facility] indicates Full Code status. What is your current living situation?: I presently have a place to live Problems where you live: no known problems Problems where you live details: none In the past 12 months, utilities in danger of being shut off: no In past 12 months, lack of transportation kept you from medical appts, meetings, work, or getting things needed for daily living: no In the past 12 mos, have been you worried that your food would run out before you had money to buy more?: never true In the past 12 mos, the food you bought just didn't last and you didn't have money to buy more?: never true Highest level of school completed/degree received: 12th grade, no diploma Smoking Status: Never smoker Do you use any of these nicotine containing products: None Second hand tobacco smoke exposure: No How often do you have a drink containing alcohol: never How often do you have six or more drinks on one occasion: Never AUDIT-C Alcohol total score: 0 Non-prescribed substance use: denies use Caffeine: No How often does anyone, including family, friends and others, physically hurt you : never How often does anyone, including family, friends and others, insult or talk down to you: never How often does anyone, including family, friends and others, threaten you with harm: never How often does anyone, including family, friends and others, scream or curse at you: never service: No Exam Const: Vital Signs, click to edit/add: Vital Signs - 24 hr 03/05/24 11:13 03/05/24 11:22 03/05/24 11:30 Temperature 98.4 F Pulse Rate 82 80 Pulse Rate [Right Radial] 81 Respiratory Rate 24 Blood Pressure Blood Pressure [Le ft Forearm] 140/54 H Pulse Oximetry 94 94 97 Oxygen Delivery Me od Room Air 03/05/24 11:45 03/05/24 12:16 03/05/24 12:18 Temperature Pulse Rate 80 83 84 Pulse Rate [Right Radial] Respiratory Rate 16 Blood Pressure 142/58 H Blood Pressure [Le ft Forearm] Pulse Oximetry 95 95 94 Oxygen Delivery Me thod Room Air 03/05/24 12:30 03/05/24 12:31 03/05/24 12:45 Temperature Pulse Rate 85 84 84 Pulse Rate [Right Radial] Respiratory Rate Blood Pressure 139/59 L Blood Pressure [Le ft Forearm] Pulse Oximetry 95 93 95 Oxygen Delivery Me thod 03/05/24 13:00 03/05/24 13:02 03/05/24 13:15 Temperature Pulse Rate 82 81 79 Pulse Rate [Right Radial] Respiratory Rate Blood Pressure 139/52 L Blood Pressure [Le ft Forearm] Pulse Oximetry 97 97 96 Oxygen Delivery Me thod 03/05/24 13:30 03/05/24 13:31 03/05/24 13:45 Temperature Pulse Rate 81 80 84 Pulse Rate [Right Radial] Respiratory Rate 16 Blood Pressure 137/53 L Blood Pressure [Le ft Forearm] Pulse Oximetry 93 93 95 Oxygen Delivery Me thod Room Air 03/05/24 14:00 03/05/24 14:15 03/05/24 14:30 Temperature Pulse Rate 80 80 82 Pulse Rate [Right Radial] Respiratory Rate Blood Pressure Blood Pressure [Le ft Forearm] Pulse Oximetry 93 91 92 Oxygen Delivery Me thod Course Vital Signs Vital signs: Initial Vital Signs Temperature 98.4 F 03/05/24 11:13 Temperature Source Oral 03/05/24 11:13 Pulse Rate 81 03/05/24 11:13 Pulse Rhythm Regular 03/05/24 11:13 Respiratory Rate 24 03/05/24 11:13 Blood Pressure 140/54 H 03/05/24 11:13 Blood Pressure Mean 82 03/05/24 11:13 Pulse Oximetry 94 03/05/24 11:13 Oxygen Delivery Method Room Air 03/05/24 11:13 Vital Signs Temperature 98.4 F 03/05/24 11:13 Pulse Rate 81 03/05/24 11:13 Respiratory Rate 24 03/05/24 11:13 Blood Pressure 140/54 H 03/05/24 11:13 Pulse Oximetry 94 03/05/24 11:13 Oxygen Delivery Method Room Air 03/05/24 11:13 Temperature 98.4 F 03/05/24 11:13 Pulse Rate 82 03/05/24 14:30 Respiratory Rate 16 03/05/24 13:31 Blood Pressure 137/53 L 03/05/24 13:31 Pulse Oximetry 92 03/05/24 14:30 Oxygen Delivery Method Room Air 03/05/24 13:31 Medications Administered Medications: Discontinued Medications Generic Name Dose Route Start Last Admin Trade Name Freq PRN Reason Stop Dose Admin Sodium Chloride 500 mls @ 1,000 mls/hr 03/05/24 11:27 03/05/24 14:15 0.9 % Sodium Chloride 500 Ml IV 03/05/24 11:56 Infused .Q30M ONE Infusion Sodium Chloride 500 mls @ 1,000 mls/hr 03/05/24 11:27 03/05/24 14:16 0.9 % Sodium Chloride 500 Ml IV 03/05/24 11:56 1,000 mls/hr .Q30M ONE Administration Insulin Human Regular 10 unit 03/05/24 12:35 03/05/24 12:59 Insulin Regular, Human 100 Unit/Ml Vial IVP 03/05/24 12:36 10 unit ONCE ONE Administration Medical Decision Making MDM Narrative Medical decision making narrative: Patient is a 63-year-old male presenting to emergency department for hyperglyce татьяна. Is also having some abdominal pain. Abdominal pain could be related to the recent and or hyperglycemia but differential also includes SBO, pancreatitis gallbladder disease, gastritis. He is also having a mild headache but states that just started recently. Do not believe head imaging is necessary at this time. Will do CT scan of his abdomen pelvis. Will also order CBC, CMP, lipase, troponin, EKG. His chest pain is mostly likely musculoskeletal as it is tender to palpation to the right chest he states that reproduces his pain exactly. Lab work returns with a glucose of 438 in a very some mild anion gap. Did do a VBG which does not show any signs of DKA. Does not appear to be in HHS. Overall is mentating well. Will give him a L of fluid and 10 units of IV insulin. CT scan reviewed by myself and the radiologist shows no acute abnormalities. Patient is feeling much better at this time. Repeat troponin shows no concerning abnormalities. EKG is normal. Due that I a.m. not concerned about any ACS causing of his symptoms. Repeat point of care glucose was down to the upper 300. As he is doing well at this time it is not necessary to bring his blood sugar down any further. This can be done back at his assisted living. Repeat troponin within normal limits. We had difficult time getting gladysold of his assisted living to figure out what is going on with his insulin. Were finally able to get through to staff there he states due to his insurance and not been able to get the needles required to give him is insulin. They still do not have the insulin needles available but states if we can send some with they can take him back and given his insulin. 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 Patient will be discharged. He is agreeable to this plan and feeling much better at this time. Lab Data Labs: Lab Results 10/20/24 10/20/24 10/20/24 Range/Units 11:45 12:00 12:35 WBC 7.86 (4.50-11.00) K/uL RBC 4.53 (4.30-5.90) m/uL Hgb 12.7 L (13.5-17.5) gm/dL Hct 38.0 (37.0-53.0) % MCV 84 (80-100) fL MCH 28 (26-34) pg MCHC 33 (32-36) gm/dL RDW Coeff of Kaylen 14.2 (11.5-15.5) % Plt Count 170 (140-440) K/uL Neut % (Auto) 75.6 H (42.0-72.0) % Lymph % (Auto) 17.4 L (20-44) % [place] % (Auto) 5.0 (0.0-11.0) % Eos % (Auto) 1.4 (0.0-7.0) % Baso % (Auto) 0.3 (0.0-3.0) % Neut # (Auto) 5.90 (1.7-7.0) K/uL Lymph # (Auto) 1.40 (0.90-2.90) K/uL [place] # (Auto) 0.40 (0.00-0.90) K/UL Eos # (Auto) 0.11 (0.00-0.50) K/uL Baso # (Auto) 0.02 (0.00-0.30) K/uL Abs Immat Gran (auto) 0.02 (0.00-0.30) K/uL Imm/Tot Granulo (auto) 0.3 % VBG pH (7.32-7.43) VBG pCO2 (40-50) mmHG VBG pO2 (25-47) mmHG VBG HCO3 (21-28) mmol/L Sodium 130 L (135-149) mmol/L Potassium 4.0 (3.6-5.1) mmol/L Chloride 89 L (96-114) mmol/L Carbon Dioxide 23 (20-32) mmol/L Anion Gap 18 H (7-15) mEq/L BUN 31 H (7-30) mg/dL Creatinine 1.3 (0.5-1.5) mg/dL Estimated Creat Clear 51.80 Estimated GFR 61 ml/min Glucose 438 H* (60-115) mg/dL Calcium 8.8 (8.4-10.6) mg/dL Magnesium 2.3 (1.5-2.6) mg/dL Total Bilirubin 0.7 (0.1-1.5) mg/dL AST 24 (12-35) U/L ALT 26 (4-50) U/L Alkaline Phosphatase 130 (40-150) U/L Total Protein 7.4 (6.0-8.3) g/dL Albumin 4.3 (3.3-5.0) g/dL Lipase 35 (23-300) U/L Urine Color Yellow (Yellow) Urine Appearance Clear (Clear) Urine pH 5.0 (5.0-8.5) Ur Specific [place] 1.010 (1.000-1.030) Urine Protein Negative (Negative) Urine Glucose (UA) 2+ A (Negative) Urine Ketones 2+ A (Negative) Urine Blood Negative (Negative) Urine Nitrite Negative (Negative) Urine Bilirubin Negative (Negative) Urine Urobilinogen 0.2 (0.2-1.0) Ur Leukocyte Esterase Negative (Negative) Urine RBC 0-2 (0-2) Urine WBC 0-2 (0-5) Ur Squamous Epith Cells None (None-Few) Urine Bacteria None (None) Lab Acknowledgement New Spec Needed POC Glucose 421 H* (60-115) mg/dl POC Troponin I 0.01 (0.01-0.04) ng/ml 03/05/24 03/05/24 03/05/24 Range/Units 12:42 14:35 14:42 WBC (4.50-11.00) K/uL RBC (4.30-5.90) m/uL Hgb (13.5-17.5) gm/dL Hct (37.0-53.0) % MCV (80-100) fL MCH (26-34) pg MCHC (32-36) gm/dL RDW Coeff of Kaylen (11.5-15.5) % Plt Count (140-440) K/uL Neut % (Auto) (42.0-72.0) % Lymph % (Auto) (20-44) % [place] % (Auto) (0.0-11.0) % Eos % (Auto) (0.0-7.0) % Baso % (Auto) (0.0-3.0) % Neut # (Auto) (1.7-7.0) K/uL Lymph # (Auto) (0.90-2.90) K/uL [place] # (Auto) (0.00-0.90) K/UL Eos # (Auto) (0.00-0.50) K/uL Baso # (Auto) (0.00-0.30) K/uL Abs Immat Gran (auto) (0.00-0.30) K/uL Imm/Tot Granulo (auto) % VBG pH 7.436 H (7.32-7.43) VBG pCO2 34 L (40-50) mmHG VBG pO2 37.0 (25-47) mmHG VBG HCO3 23 (21-28) mmol/L Sodium (135-149) mmol/L Potassium (3.6-5.1) mmol/L Chloride (96-114) mmol/L Carbon Dioxide (20-32) mmol/L Anion Gap (7-15) mEq/L BUN (7-30) mg/dL Creatinine (0.5-1.5) mg/dL Estimated Creat Clear Estimated GFR ml/min Glucose (60-115) mg/dL Calcium (8.4-10.6) mg/dL Magnesium (1.5-2.6) mg/dL Total Bilirubin (0.1-1.5) mg/dL AST (12-35) U/L ALT (4-50) U/L Alkaline Phosphatase (40-150) U/L Total Protein (6.0-8.3) g/dL Albumin (3.3-5.0) g/dL Lipase (23-300) U/L Urine Color (Yellow) Urine Appearance (Clear) Urine pH (5.0-8.5) Ur Specific [place] (1.000-1.030) Urine Protein (Negative) Urine Glucose (UA) (Negative) Urine Ketones (Negative) Urine Blood (Negative) Urine Nitrite (Negative) Urine Bilirubin (Negative) Urine Urobilinogen (0.2-1.0) Ur Leukocyte Esterase (Negative) Urine RBC (0-2) Urine WBC (0-5) Ur Squamous Epith Cells (None-Few) Urine Bacteria (None) Lab Acknowledgement POC Glucose 372 H* (60-115) mg/dl POC Troponin I 0.01 (0.01-0.04) ng/ml Discharge Plan Discharge Clinical Impression: Hyperglycemia, Chest wall pain Patient Disposition: Home, Self-Care Condition: Improved Instructions: Diabetic Hyperglycemia (ED) Additional Instructions: Make sure you start receiving your insulin. Return to the emergency department for new or worsening symptoms. Prescriptions: No Action amlodipine 10 mg tablet 10 mg PO DAILY aripiprazole 15 mg tablet 7.5 mg PO DAILY Eliquis 5 mg tablet 5 mg PO BID aspirin 81 mg tablet,delayed release (DR/EC) 81 mg PO DAILY venlafaxine 75 mg capsule,extended release 24hr 225 mg PO DAILY torsemide 20 mg tablet 20 mg PO DAILY chlorthalidone 25 mg tablet 25 mg PO DAILY carbamazepine 200 mg tablet 200 mg PO BID pantoprazole 40 mg tablet,delayed release (DR/EC) 40 mg PO DAILY hydralazine 50 mg tablet 50 mg PO QID Patient Comments: 08,12,16,20 ezetimibe 10 mg tablet 10 mg PO DAILY pregabalin 100 mg capsule 100 mg PO QAM pregabalin 150 mg capsule 150 mg PO HS polyethylene glycol 3350 17 gram/dose powder 17 g PO DAILY Rx Instructions: AND TWICE DAILY NEEDED sennosides [senna] 8.6 mg tablet 8.6 mg PO DAILY ketoconazole 2 % shampoo 1 applic TOPICAL Q3D diphenhydramine HCl [Banophen] 50 mg capsule 50 mg PO Q6H PRN (Reason: itching) loperamide 2 mg capsule 2 mg PO Q6H PRN (Reason: loose stool) acetaminophen 500 mg tablet 500 mg PO Q6H nystatin 100,000 unit/gram powder 1 applic TOPICAL BID PRN albuterol sulfate 90 mcg/actuation HFA aerosol inhaler 1 inh INHALATION Q4H PRN (Reason: bronchospasm) icosapent ethyl [Vascepa] 1 gram capsule 2 g PO BID Humulin R U-500 (Conc) Kwikpen 500 unit/mL (3 mL) insulin pen 100 unit SUBCUT TID clotrimazole 1 % cream 1 applic topical BID Rx Instructions: GROIN,PERIAREA AND ABDOMIN ergocalciferol (vitamin D2) 1,250 mcg (50,000 unit) capsule 50,000 unit PO WE@09 hydrocortisone 2.5 % cream 1 applic topical BID PRNQty: 30 1RF ammonium lactate 12 % lotion 1 applic topical BID Qty: 225 0RF metoprolol succinate 200 mg tablet extended release 24 hr 200 mg PO DAILY isosorbide mononitrate 60 mg tablet extended release 24 hr 60 mg PO DAILY Ozempic 1 mg/dose (4 mg/3 mL) pen injector 1 mg subcut .weekly insulin glargine [Basaglar KwikPen U-100 Insulin] 100 unit/mL (3 mL) insulin pen 30 unit subcut BID cyclobenzaprine 10 mg tablet 10 mg PO HS PRN (Reason: muscle spasm) Qty: 20 0RF Rx Instructions: Muscle relaxant to use at bedtime if needed for back pain potassium chloride 20 mEq tablet,ER particles/crystals 40 meq PO BID rosuvastatin 40 mg tablet 40 mg PO HS carvedilol 25 mg Tablet 25 mg PO DAILY doxycycline hyclate 100 mg capsule 100 mg PO BID Qty: 10 0RF Follow Up/Referrals: Provider,Not a Local [Primary Care Provider] - Stand Alone Forms: [facility] Info Instructions
--- NOTE | 2024-03-05 11:33 | CRLHL7_ITS ---
For Patients: As a result of the Century Cures Act, medical imaging exams and procedure reports are released immediately into your electronic medical record. You may view this report before your referring provider. If you have questions, please contact your health care provider. INDICATION: Abdominal pain. TECHNIQUE: CT scan of the abdomen and pelvis with 150 cc of Isovue-370 given intravenously. FINDINGS: The lung bases are unremarkable. No focal abnormalities identified in the visualized portions of the liver, spleen, pancreas, and adrenal glands. 9.1 cm cyst extending off the superior pole of the right kidney. The kidneys are otherwise unremarkable. No hydronephrosis. No obstructing uroliths. The GI tract is incompletely distended but shows no gross abnormalities. No retroperitoneal, pelvic sidewall, or mesenteric adenopathy. Atherosclerotic vascular calcifications. Degenerative changes of the spine. Impression : 1. No acute abnormalities of the abdomen or pelvis identified. Dictated by Luis Daniel Dougherty MD @ 03/05/2024 12:25:40 PM Please note that all CT scans at this facility use dose modulation, iterative reconstruction, and/or weight-based dosing when appropriate to reduce radiation dose to as low as reasonably achievable. Dictated by: Luis Daniel Dougherty MD @ 03/05/2024 12:25:48 (Electronically Signed)
--- OUTSIDE RECORDS SUMMARY | 2024-03-05 11:51 | XMS_ITS | CCD ---
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 Manager Government Name Role Phone Arpit MCKINLEY-C, [place] Primary Care Provider Leona vailable [place] RESEARCH NURSE-C, [facility] Chronic Care Management U navailable Summary Purpose DataExchange Insurance Providers Payer name Policy type / Coverage type Covered alliance party ID Effective Begin Date Effective End Date [place] [id number] Unknown Unknown [place] B [id number] Unknown Unknown Family history Sister Brittany Suggs Diagnosis Age At Onset No Family Disease Entered N/A Runs in the family Diagnosis Age At Onset No Known Diseases N/A Sister Blanka Mcduffie Diagnosis Age At Onset No Family Disease Entered N/A Social History Social History Element Codes Description Effec tive Dates Tobacco history SNOMED CT: 295410572 Never smoker 01/16 Sexually Active? Unknown No [...] 10/07/2021 Living arrangements Unknown Assisted 09/03/[address]: 207564261 No Alcohol Consum ption 09/02/2020 Allergies, Adverse Reactions, Alerts Substance Reaction Codes Entered Date Inactivated Date Status * NO KNOWN FOOD ALLERGIES Unknown 07/13/2023 No Inactive Date Active LISINOPRIL RxNorm: 07859 02/12/2020 No Inactive Da te Active Metformin [...] 09/07/2023 Resolved Coronary artery disease invo lving [place] coronary [...] Inactive nystatin 100,000 unit/gram topical powder RxNorm: 750149 Apply 1 Application Topical BID as needed [...] (Concentrated) Insulin 500 unit/mL subcutaneous soln RxNorm: 541938 Inject 100 Unit(s) Subcutaneous TID 02/17/20 24 025 Active Tusharagldestin MendenhallPen U-100 Insulin 100 unit/mL (3 mL) subcutaneous RxNorm: 5359678 Inject 30 Unit(s) Subcutaneous BID 02/10/20 24 024 Active Please dispense one month supply. Humulin R U-500 (Concentrated) Insulin 500 unit/mL subcutaneous soln RxNorm: 799656 Inject 100 Unit(s) Subcutaneous TID 02/10/20 24 024 Inactive pregabalin 100 mg capsule RxNorm: 362147 Take 1 Capsule(s) Oral QAM every morning 02/07/20 24 024 Active isosorbide mononitrate ER 60 mg tablet,extended release 24 hr RxNorm: 386868 Take 1 Tablet(s) Oral QD 02/01/20 24 025 Active aripiprazole 15 mg tablet RxNorm: 647703 Take 1/2 Tablet(s) Oral QD 02/01/20 24 025 Active torsemide 20 mg tablet RxNorm: 710457 1 TAB ORALLY DAILY (DX: EDEMA) 01/27/20 No Stop Date Active potassium chloride ER 20 mEq tablet,extended release(part/cryst) RxNorm: 7990404 2 TABS (40MEQ) ORALLY TWICE DAILY (DX: HYPOKALEMIA) 01/27/20 No Stop Date Active cephalexin 500 mg capsule RxNorm: 453021 Take 1 Capsule(s) Oral QID 12/17/19 24 024 Inactive cephalexin 500 mg capsule RxNorm: 781427 Take 1 Capsule(s) Oral QID 12/17/19 24 024 Inactive acetaminophen 500 mg tablet RxNorm: 616937 (MAX APAP:4GM/24HR) Take 1 Tablet(s) Oral TID as needed for pain 12/10/19 24 024 Active torsemide 20 mg tablet RxNorm: 989797 Take 1 Tablet(s) Oral QD 10/26/19 24 024 Inactive potassium chloride ER 20 mEq tablet,extended release RxNorm: 338065 Take 2 Tablet(s) Oral BID 10/26/19 24 Active torsemide 20 mg tablet RxNorm: 959895 Take 1 Tablet(s) Oral QD 10/26/19 24 024 Inactive potassium chloride ER 20 mEq tablet,extended release RxNorm: 511490 Take 2 Tablet(s) Oral BID 10/26/19 24 Inactive Artificial Tears (PF) 0.1 %-0.3 % drops in a dropperette RxNorm: 620361 Apply 1-2 Drop(s) Both eyes BID as needed 09/28/19 24 Active erythromycin 5 mg/gram (0.5 %) eye ointment RxNorm: 369425 Apply 1 Application Both eyes QHS every night at bedtime Instill ~1 cm ribbon into affected eye 09/28/19 24 024 Inactive Artificial Tears (PF) 0.1 %-0.3 % drops in a dropperette RxNorm: 254393 Apply 1-2 Drop(s) Both eyes BID as needed 09/28/19 24 024 Inactive erythromycin 5 mg/gram (0.5 %) eye ointment RxNorm: 068514 Apply 1 Application Both eyes QHS every night at bedtime Instill ~1 cm ribbon into affected eye 09/28/19 24 024 Inactive acetaminophen 500 mg tablet RxNorm: 490058 (MAX APAP:4GM/24HR) Take 1 Tablet(s) Oral TID as needed for pain 09/24/19 24 024 Inactive carvedilol 25 mg tablet RxNorm: 967892 Take 1 Tablet(s) Oral QD 09/08/19 24 No Stop Date Active pregabalin 100 mg capsule RxNorm: 380140 Take 1 Capsule(s) Oral QAM every morning 09/07/19 24 024 Inactive rosuvastatin 40 mg tablet RxNorm: 557227 Take 1 Tablet(s) Oral QPM every evening 07/13/19 24 No Stop Date Active ezetimibe 10 mg tablet RxNorm: 817957 Take 1 Tablet(s) Oral QD 07/13/19 24 No Stop Date Active bisacodyl 10 mg rectal suppository RxNorm: 692389 Insert 1 Suppository Rectal QD as needed 07/13/19 24 No Stop Date Active polyethylene glycol 3350 17 gram/dose oral powder RxNorm: 379226 Take 17 Gram(s) Oral BID as needed mix in 4-8ox water 07/13/19 24 No Stop Date Active ketoconazole 2 % shampoo RxNorm: 638969 Apply 1 Application Topical UD as directed 07/13/19 24 No Stop Date Active Ozempic 1 mg/dose (4 mg/3 mL) subcutaneous pen injector RxNorm: 0621725 Inject 1 Milligram(s) Subcutaneous QW once a week 07/13/19 24 No Stop Date Active Guaifenesin AC 10 mg-100 mg/5 mL oral liquid RxNorm: 036796 Take 10 Milliliter(s) Oral Q4H every four hours as needed 07/13/19 24 No Stop Date Active ammonium lactate 12 % topical cream RxNorm: 942280 Apply 1 Application Topical BID 07/13/19 24 No Stop Date Active hydrocortisone 2.5 % topical cream RxNorm: 399981 Apply 1 Application Topical BID as needed 07/13/19 24 No Stop Date Active rosuvastatin 20 mg sprinkle capsule RxNorm: 1980564 Take 1 Capsule(s) Oral QD 07/13/19 24 No Stop Date Active Vascepa 1 gram capsule RxNorm: 7666720 Take 2 Capsule(s) Oral BID 07/13/19 24 No Stop Date Active venlafaxine ER 75 mg capsule,extended release 24 hr RxNorm: 141003 Take 3 Capsule(s) Oral QD 07/13/19 24 No Stop Date Active aripiprazole 15 mg tablet RxNorm: 056656 Take 1/2 Tablet(s) Oral QD 07/13/19 24 024 Inactive isosorbide mononitrate ER 60 mg tablet,extended release 24 hr RxNorm: 054813 Take 1 Tablet(s) Oral QD 07/13/19 24 024 Inactive Basaglar KwikPen U-100 Insulin 100 unit/mL (3 mL) subcutaneous RxNorm: 7256678 Inject 30U SubQ twice daily 07/07/19 24 024 Inactive Please dispense one month supply. Basaglar KwikPen U-100 Insulin 100 unit/mL (3 mL) subcutaneous RxNorm: 5119053 Inject 30U SubQ twice daily 07/07/19 24 024 Inactive Please dispense one month supply. pregabalin 150 mg capsule RxNorm: 981219 Take 1 Capsule(s) Oral QHS every night at bedtime 07/05/19 24 024 Inactive pregabalin 150 mg capsule RxNorm: 430883 Take 1 Capsule(s) Oral QHS every night at bedtime 07/05/19 24 024 Inactive polyethylene glycol 3350 17 gram/dose oral powder RxNorm: 772763 Take 1 Packet Oral QD as needed (1 packet = 17g) mix with 4-8oz of liquid 06/15/19 24 024 Inactive bisacodyl 10 mg rectal suppository RxNorm: 955715 Insert one suppository per rectum once daily as needed for constipation 06/15/19 24 024 Inactive bisacodyl 10 mg rectal suppository RxNorm: 712448 Insert one suppository per rectum once daily as needed for constipation 06/15/19 24 024 Inactive pregabalin 100 mg capsule RxNorm: 583727 Take 1 Capsule(s) Oral QAM every morning 04/27/20 23 024 Inactive Levemir FlexPen 100 unit/mL (3 mL) solution subcutaneous insulin pen RxNorm: 698738 Inject 30 Unit(s) Subcutaneous BID 04/27/20 23 024 Inactive rosuvastatin 40 mg tablet RxNorm: 683613 Take 1 Tablet(s) Oral QPM every evening 04/16/20 024 Inactive D/C rosuvastatin 20mg venlafaxine ER 75 mg capsule,extended release 24 hr RxNorm: 177084 Take 3 Capsule(s) Oral QD 04/14/20 23 023 Inactive pregabalin 100 mg capsule RxNorm: 437358 Take 1 Capsule(s) Oral QAM every morning [...] strip clotrimazole 1 % topical cream RxNorm: 219433 Take apply topically to abdominal folds twice daily for 14 days 03/12/20 024 Inactive Ozempic 1 mg/dose (4 mg/3 mL) subcutaneous pen injector RxNorm: 5250758 Inject 1 Milligram(s) Subcutaneous QW once a week 03/11/20 023 Inactive rosuvastatin 20 mg tablet RxNorm: 161457 Take 1 Tablet(s) Oral QD 02/26/20 23 023 Inactive d/c pravastatin 80mg Ozempic 1 mg/dose (4 mg/3 mL) subcutaneous pen injector RxNorm: 8703182 Inject 1 Milligram(s) Subcutaneous QW once a week 02/20/20 23 023 Inactive pregabalin 150 mg capsule RxNorm: 094073 Take 1 Capsule(s) Oral HS at bed time 02/19/20 23 023 Inactive pregabalin 100 mg capsule RxNorm: 853940 Take 1 Capsule(s) Oral QAM every morning 02/18/20 023 Inactive venlafaxine ER 75 mg capsule,extended release 24 hr RxNorm: 249696 Take 3 Capsule(s) Oral QD 02/04/20 23 023 Inactive FreeStyle Chema 2 Sensor kit RxNorm: use as directed 02/04/20 23 023 Inactive FreeStyle Chema 2 Sensor kit RxNorm: use as directed 02/04/20 23 024 Inactive fluconazole 150 mg tablet RxNorm: 270896 Take 1 Tablet(s) Oral on day 3 and on day 6 02/03/20 23 024 Inactive chlorthalidone 25 mg tablet RxNorm: 233656 Take 1 Tablet(s) Oral QAM every morning 02/03/20 23 No Stop Date Active venlafaxine ER 150 mg capsule,extended release 24 hr RxNorm: 047096 Take 1 Capsule(s) Oral QD 02/03/20 23 023 Inactive acetaminophen 500 mg tablet RxNorm: 435479 1 TABLET ORALLY 3 TIMES DAILY (MAX APAP:4GM/24HR) 12/15/19 23 023 Inactive clotrimazole 1 % topical cream RxNorm: 117854 apply 1g topically to top of feet and in between toes BID 12/09/19 23 023 Inactive potassium chloride ER 20 mEq tablet,extended release RxNorm: 796867 Take 1 Tablet(s) Oral BID 12/09/19 23 024 Inactive d/c 20mEq once daily (sent from hospital) nystatin 100,000 unit/gram topical powder RxNorm: 747371 APPLY TO AFFECTED AREAS TOPICALLY 2 TIMES DAILY 11/21/19 23 023 Inactive Nystop 100,000 unit/gram topical powder RxNorm: 120610 Apply to abd folds, under breasts and L side of groin Topical BID x 14 days, then BID PRN 11/20/19 023 Inactive dx: yeast dermatitis [place] Ultra Strength 4 %-30 %-10 % topical cream RxNorm: 053926 Apply 1 Gram(s) Topical QID PRN to feet and legs for neuropathic pain 11/11/19 23 024 Inactive clotrimazole 1 % topical cream RxNorm: 453215 Apply 1/2 Gram(s) Topical BID Apply to affected areas of groin, periarea, and abdominal topically 2 times daily 11/10/19 23 023 Inactive hydrocortisone 2.5 % topical cream RxNorm: 954824 Apply 1/2 Gram(s) Topical BID as needed 11/10/19 024 Inactive Levemir FlexPen 100 unit/mL (3 mL) solution subcutaneous insulin pen RxNorm: 517464 Inject 30 Unit(s) Subcutaneous BID 10/07/19 23 023 Inactive Humulin R U-500 (Concentrated) Insulin 500 unit/mL subcutaneous soln RxNorm: 708407 Inject 100 Unit(s) Subcutaneous TID 05/23 024 Inactive Ozempic 0.25 mg or 0.5 mg (2 mg/3 mL) subcutaneous pen injector RxNorm: 9550236 Inject 1/2 Milligram(s) Subcutaneous QW once a week 10/07/19 024 Inactive aripiprazole 15 mg tablet RxNorm: 705029 1/2 TAB (7.5MG) ORALLY DAILY (DX:MAJOR DEPRESSIVE DISORDER) 09/23/19 023 Inactive Accu-Chek Guide test strips RxNorm: Use 1 Test Strip QID 09/15/19 023 Inactive ok to substitute with any covered alternative test strip Lancets,Thin 28 gauge RxNorm: Use 1 as directed QID 09/15/19 023 Inactive torsemide 20 mg tablet RxNorm: 069363 Take 1 Tablet(s) Oral BID 09/09/19 024 Inactive d/c once daily dosing carvedilol 25 mg tablet RxNorm: 854559 Take 1 Tablet(s) Oral QD 08/25/19 23 024 Inactive pregabalin 150 mg capsule RxNorm: 516990 1 Capsule(s) Oral HS at bed time 08/18/19 023 Inactive pregabalin 100 mg capsule RxNorm: 341313 1 Capsule(s) Oral QAM every morning 08/18/19 023 Inactive carvedilol 25 mg tablet RxNorm: 319643 1 Tablet(s) Oral QD 07/28/19 023 Inactive lisinopril 20 mg tablet RxNorm: 647381 Give 1 Tablet(s) Oral QD 07/28/19 23 023 Inactive Lyrica 150 mg capsule RxNorm: 656469 Take 1 Capsule(s) Oral QHS every night at bedtime 07/19/19 023 Inactive d/c 100mg dose Diflucan 150 mg tablet RxNorm: 983070 Take 1 Tablet(s) Oral QD repeat on day 3 and 6 07/19/19 23 023 Inactive pregabalin 100 mg capsule RxNorm: 016123 Take 1 Capsule(s) Oral QAM every morning 07/19/19 23 023 Inactive gatifloxacin 0.5 % eye drops RxNorm: 252293 Instill 1 Drop(s) as directed TID Instill 1 drop in to affected eye(s) starting 1 day prior to surgery and continue until gone (do not exceed 4 weeks). 07/13/19 23 023 Inactive carvedilol 25 mg tablet RxNorm: 687086 2 Tablet(s) Oral BID 07/13/19 023 Inactive Humulin R Regular U-100 Insulin 100 unit/mL injection solution RxNorm: 018279 85 Unit(s) Injection TID 07/13/19 23 023 Inactive ketorolac 0.5 % eye drops RxNorm: 578616 Instill 1 Drop(s) as directed QID Instill 1 drop into affected eye(s) 4 times daily starting 1 day prior to surgery and continue until gone (do not exceed 4 weeks). 07/13/19 023 Inactive Diflucan 150 mg tablet RxNorm: 708910 Take 1 Tablet(s) Oral QD repeat on day 3 and 6 06/30/19 23 023 Inactive Accu-Chek Guide test strips RxNorm: Use 1 Test Strip QID Use 1 test strip to monitor blood glucose 4 times daily and as needed. Dx:E11.42. 06/23/19 23 023 Inactive ok to substitute with any covered alternative test strip dextromethorphan-gu aifenesin 10 mg-100 mg/5 mL oral liquid RxNorm: 587771 Take 10 Milliliter(s) Oral every 4 hours as needed for cough 06/19/19 23 023 Inactive dextromethorphan-gu aifenesin 10 mg-100 mg/5 mL oral liquid RxNorm: 668344 Take 10 Milliliter(s) Oral every 4 hours as needed for cough 06/19/19 23 023 Inactive Lyrica 150 mg capsule RxNorm: 443895 Take 1 Capsule(s) Oral QHS every night at bedtime 06/18/19 23 023 Inactive d/c 100mg dose aripiprazole 15 mg tablet RxNorm: 125738 1/2 TAB (7.5MG) ORALLY DAILY (DX:MAJOR DEPRESSIVE DISORDER) 06/05/19 023 Inactive pregabalin 100 mg capsule RxNorm: 923496 1 Capsule(s) Oral QAM every morning 06/02/19 023 Inactive Banophen 50 mg capsule RxNorm: 5464213 Take 1 Capsule(s) Oral Q6H every 6 hours as needed 05/19/19 No Stop Date Active Novolog Flexpen U-100 Insulin aspart 100 unit/mL (3 mL) subcutaneous RxNorm: 6228116 Inject 10 Unit(s) Subcutaneous QHS every night at bedtime with nighttime snack 04/08/20 022 Inactive Novolog Flexpen U-100 Insulin aspart 100 unit/mL (3 mL) subcutaneous RxNorm: 9296934 Inject 42 Unit(s) Subcutaneous TID in addition to sliding scale 04/08/20 022 Inactive d/c 36u albuterol sulfate HFA 90 mcg/actuation aerosol inhaler RxNorm: 7624647 Take 2 Puff(s) Inhalation Q4H every four hours as needed as needed for SOB, cough, or wheezing 04/07/20 030 Active Banophen 50 mg capsule RxNorm: 8091870 Take 1 Capsule(s) Oral Q6H every 6 hours as needed 04/06/20 023 Inactive diphenhydramine 50 mg tablet RxNorm: 9042560 Take 1 Tablet(s) Oral Q6H every 6 hours as needed 04/06/20 22 022 Inactive diphenhydramine 50 mg tablet RxNorm: 1562633 1 Tablet(s) Oral Q6H every 6 hours as needed 04/06/20 022 Inactive Abilify 15 mg tablet RxNorm: 881175 1/2 Tablet(s) Oral QD 03/10/20 023 Inactive Shingrix (PF) 50 mcg/0.5 mL intramuscular suspension, kit RxNorm: 7993566 Administer 1/2 Milliliter(s) Intramuscular QD one time shingrix step 2 ( step 1 given 11/04/21) WITH needle - Nursing please administer upon arrival and once administered post a bridge message with date of administration, cardiovascular rn, expiration date, and lot# so we can update [facility] 02/18/20 22 022 Inactive dispense with needle Shingrix (PF) 50 mcg/0.5 mL intramuscular suspension, kit RxNorm: 4087036 Administer 1/2 Milliliter(s) Intramuscular QD one time shingrix step 2 ( step 1 given 11/04/21) WITH needle - Nursing please administer upon arrival and once administered post a bridge message with date of administration, cardiovascular rn, expiration date, and lot# so we can update [facility] 02/18/20 22 022 Inactive dispense with needle polyethylene glycol 3350 17 gram/dose oral powder RxNorm: 367872 Take 17=1 capful Gram(s) Oral QD mix with 4-8oz of liquid 01/08/20 22 023 Inactive take this in addition to BID prn order Lyrica 100 mg capsule RxNorm: 127342 Take 1 Capsule(s) Oral QAM every morning 01/08/20 22 022 Inactive d/c 50mg dose acetaminophen 500 mg tablet RxNorm: 970116 Take 1 Tablet(s) Oral TID 01/08/20 22 022 Inactive d/c PRN order Lyrica 150 mg capsule RxNorm: 970050 Take 1 Capsule(s) Oral QHS every night at bedtime 01/08/20 22 023 Inactive d/c 100mg dose Abilify 5 mg tablet RxNorm: 205960 Take 1 Tablet(s) Oral QD take 1 tab po QD #30 refill 5 dx: MDD 12/12/19 22 022 Inactive Abilify 5 mg tablet RxNorm: 390934 Take 1 Tablet(s) Oral QD take 1 tab po QD #30 refill 5 dx: MDD 12/12/19 22 022 Inactive Novolog Flexpen U-100 Insulin aspart 100 unit/mL (3 mL) subcutaneous RxNorm: 1759256 Inject 42 Unit(s) Subcutaneous TID in addition to sliding scale 12/10/19 22 022 Inactive d/c 36u chlorthalidone 25 mg tablet RxNorm: 596522 Take 1 Tablet(s) Oral QAM every morning 12/10/19 22 023 Inactive pregabalin 50 mg capsule RxNorm: 812962 Take 1 Capsule(s) Oral QAM every morning 11/12/19 22 022 Inactive tetanus-diphtheria toxoids-Td 2 Lf unit-2 Lf unit/0.5 mL IM suspension RxNorm: 139 Take 0.5 Miscellaneous Intramuscular 11/12/19 22 022 Inactive need tdap - nursing to administer upon arrival pregabalin 50 mg capsule RxNorm: 611690 Take 1 Capsule(s) Oral QAM every morning 10/16/19 22 022 Inactive pregabalin 50 mg capsule RxNorm: 222164 Take 1 Capsule(s) Oral QAM every morning 10/16/19 22 022 Inactive pregabalin 50 mg capsule RxNorm: 135569 1 Capsule(s) Oral QAM every morning 10/15/19 22 022 Inactive Shingrix (PF) 50 mcg/0.5 mL intramuscular suspension, kit RxNorm: 6855326 Administer 1/2 Milliliter(s) Intramuscular one time Nursing please administer upon arrival and once administered post a bridge message with date of administration, cardiovascular rn, expiration date, and lot# so we can update [facility]. 10/09/19 22 022 Inactive shingrix step 1 Shingrix (PF) 50 mcg/0.5 mL intramuscular suspension, kit RxNorm: 0232629 Administer 1/2 Milliliter(s) Intramuscular one time Nursing please administer upon arrival and once administered post a bridge message with date of administration, cardiovascular rn, expiration date, and lot# so we can update [facility]. 10/09/19 22 022 Inactive shingrix step 1 cholecalciferol (vitamin D3) 1,250 mcg (50,000 unit) capsule RxNorm: 961150 Take 1 Capsule(s) Oral QW once a [...] aspart 100 unit/mL (3 mL) subcutaneous RxNorm: 6160758 Inject 10 Unit(s) Subcutaneous QHS every night at bedtime with nighttime snack 10/08/19 22 Inactive Shingrix (PF) 50 mcg/0.5 mL intramuscular suspension, kit RxNorm: 6880476 ADMINISTER 2-DOSE SERIES PER CDC GUIDELINES 10/08/19 22 Active Shingrix (PF) 50 mcg/0.5 mL intramuscular suspension, kit RxNorm: 0530121 ADMINISTER 2-DOSE SERIES PER CDC GUIDELINES 10/08/19 22 Inactive Novolog Flexpen U-100 Insulin aspart 100 unit/mL (3 mL) subcutaneous RxNorm: 5302359 Inject 36 Unit(s) Subcutaneous TID in addition to sliding scale 10/08/19 22 Inactive Novofine Autocover 30 gauge x 1/3 needle RxNorm: Use 1 Miscellaneous UD as directed Use 1 needle as directed to administer insulin 5 times a day Dx:E11.42. 10/03/19 Inactive ok to substitute with any covered alternative pen needle benzoyl peroxide 10 % topical cleanser RxNorm: 862119 Apply 1 Application Topical QD apply to face, wash rinse and dry once daily (may change to QOD if drying) 08/19/19 22 022 Inactive (%covered by insurance) #60ml refill 11 dx: acne benzoyl peroxide 10 % topical cleanser RxNorm: 139984 Apply 1 Application Topical QD apply to face, wash rinse and dry once daily (may change to QOD if drying) 08/19/19 22 022 Inactive (%covered by insurance) #60ml refill 11 dx: acne benzoyl peroxide 10 % topical cleanser RxNorm: 603740 Apply 1 Application Topical QD apply to face, wash rinse and dry once daily (may change to QOD if drying) 08/19/19 22 022 Inactive (%covered by insurance) #60ml refill 11 dx: acne Lyrica 50 mg capsule RxNorm: 405686 Take 1 Capsule(s) Oral QAM every morning Take 1 capsule by mouth once daily 08/19/19 22 022 Inactive benzoyl peroxide 10 % topical cleanser RxNorm: 733141 Apply 1 Application Topical QD apply to face, wash rinse and dry once daily (may change to QOD if drying) 08/19/19 22 022 Inactive (%covered by insurance) #60ml refill 11 dx: acne Lyrica 100 mg capsule RxNorm: 245192 Take 1 Capsule(s) Oral QHS every night at bedtime Take 1 capsule by mouth once daily at bedtime 08/19/19 22 022 Inactive Lyrica 100 mg capsule RxNorm: 129826 Take 1 Capsule(s) Oral QHS every night at bedtime Take 1 capsule by mouth once daily at bedtime 08/16/19 22 022 Inactive Lyrica 50 mg capsule RxNorm: 612662 Take 1 Capsule(s) Oral QAM every morning Take 1 capsule by mouth once daily 08/16/19 22 Inactive Levemir FlexTouch U-100 Insulin 100 unit/mL (3 mL) subcutaneous pen RxNorm: 538725 Inject 86 Unit(s) Subcutaneous BID 08/05/19 22 022 Inactive d/c 83units BID Lyrica 100 mg capsule RxNorm: 209521 Take 1 Capsule(s) Oral QHS every night at bedtime Take 1 capsule by mouth once daily at bedtime 07/14/19 022 Inactive Lyrica 50 mg capsule RxNorm: 987274 Take 1 Capsule(s) Oral QAM every morning Take 1 capsule by mouth once daily 07/14/19 22 022 Inactive Levemir FlexTouch U-100 Insulin 100 unit/mL (3 mL) subcutaneous pen RxNorm: 041957 Inject 83 Unit(s) Subcutaneous BID 07/08/19 22 [...] test strip hydralazine 50 mg tablet RxNorm: 794138 Take 1 Tablet(s) Oral QID 05/05/20 21 022 Inactive venlafaxine ER 225 mg tablet,extended release 24 hr RxNorm: 920649 Take 1 Tablet(s) Oral QD 05/05/20 21 021 Inactive venlafaxine ER 225 mg tablet,extended release 24 hr RxNorm: 132536 Take 1 Tablet(s) Oral QD 05/05/20 21 022 Inactive isosorbide mononitrate ER 30 mg tablet,extended release 24 hr RxNorm: 032327 Take 1 Tablet(s) Oral QD 05/05/20 024 Inactive hydralazine 50 mg tablet RxNorm: 056865 Take 1 Tablet(s) Oral QID 05/05/20 21 021 Inactive aspirin 81 mg tablet,delayed release RxNorm: 503261 Take 1 Tablet(s) Oral QD 03/31/20 022 Inactive Vitamin D2 1,250 mcg (50,000 unit) capsule RxNorm: 3968781 Take 1 Capsule(s) Oral QW once a week x 12 weeks 03/31/20 022 Inactive Vitamin D2 1,250 mcg (50,000 unit) capsule RxNorm: 1039063 Take 1 Capsule(s) Oral QW once a week 03/31/20 021 Inactive Zetia 10 mg tablet RxNorm: 131255 Take 1 Tablet(s) Oral QD 03/31/20 024 Inactive Zetia 10 mg tablet RxNorm: 556917 Take 1 Tablet(s) Oral QD 03/31/20 021 Inactive hydralazine 25 mg tablet RxNorm: 845811 Take 1 Tablet(s) Oral QID 03/31/20 21 021 Inactive hydralazine 25 mg tablet RxNorm: 055063 Take 1 Tablet(s) Oral QID 03/31/20 021 Inactive hydralazine 10 mg tablet RxNorm: 339491 Take 1 Tablet(s) Oral QID 03/03/20 021 Inactive cephalexin 500 mg tablet RxNorm: 151664 Take 1 Tablet(s) Oral QID 02/27/20 21 021 Inactive cephalexin 500 mg tablet RxNorm: 284396 Take 1 Tablet(s) Oral QID 02/27/20 021 Inactive lisinopril 40 mg tablet RxNorm: 380621 Take 1 Tablet(s) Oral QD 02/11/20 21 023 Inactive Eliquis 5 mg tablet RxNorm: 1883941 Take 1 Tablet(s) Oral BID 01/05/20 21 022 Inactive Eliquis 5 mg tablet RxNorm: 3002166 Take 2 Tablet(s) Oral QD 01/01/20 21 021 Inactive Lyrica 50 mg capsule RxNorm: 303353 Take 1 Capsule(s) Oral QAM every morning 12/24/19 21 021 Inactive Lyrica 100 mg capsule RxNorm: 167033 Take 1 Capsule(s) Oral QHS every night at bedtime 12/24/19 21 021 Inactive clotrimazole 1 % topical cream RxNorm: 344227 Apply to right foot and toes Topical BID 12/04/19 21 023 Inactive metoprolol succinate ER 200 mg tablet,extended release 24 hr RxNorm: 653508 Take 1 Tablet(s) Oral QD 12/04/19 21 023 Inactive ciprofloxacin 500 mg tablet RxNorm: 135803 Take 1 Tablet(s) Oral QD 11/30/19 21 021 Inactive DX ofloxacin otic drops Accu-Chek Guide test strips RxNorm: USE 1 TO CHECK GLUCOSE 4 TIMES DAILY AND NEEDED 11/15/19 21 023 Inactive Blood Glucose Test strips RxNorm: Use 1 Test Strip QID at PRN 11/05/19 21 023 Inactive E11.42 lisinopril 30 mg tablet RxNorm: 530834 Take 1 Tablet(s) Oral QD 10/30/19 021 Inactive lisinopril 20 mg tablet RxNorm: 201280 Take 1 Tablet(s) Oral QD 10/23/19 021 Inactive lisinopril 20 mg tablet RxNorm: 944257 Take 1 Tablet(s) Oral QD 10/23/19 21 021 Inactive lisinopril 10 mg tablet RxNorm: 542800 Take 1 Tablet(s) Oral QD 10/02/19 21 021 Inactive icosapent ethyl 1 gram capsule RxNorm: 2170960 Take 2 Capsule(s) (2 gm) Oral BID with meals 09/12/19 21 024 Inactive Okay to dispense one 2gm tab if you have that available. icosapent ethyl 1 gram capsule RxNorm: 9656246 Take 2 Capsule(s) Oral BID 09/12/19 021 Inactive Okay to dispense one 2gm tab if you have that available. amlodipine 10 mg tablet RxNorm: 281960 Take 1 Tablet(s) Oral QD 09/04/19 022 Inactive aspirin 81 mg tablet,delayed release RxNorm: 171803 Take 1 Tablet(s) Oral QD 09/04/19 Inactive Levemir FlexTouch U-100 Insulin 100 unit/mL (3 mL) subcutaneous pen RxNorm: 737852 Inject 150 Unit(s) Subcutaneous BID 09/04/19 21 022 Inactive venlafaxine ER 150 mg tablet,extended release 24 hr RxNorm: 336204 Take 1 Tablet(s) Oral QD 09/04/19 021 Inactive clotrimazole-betame thasone 1 %-0.05 % topical cream RxNorm: 761960 Apply to rash on red area on left abdomen/chest Topical BID 08/10/19 Inactive amlodipine 5 mg tablet RxNorm: 688922 Take 1 Tablet(s) Oral QD 07/31/19 021 Inactive cephalexin 500 mg tablet RxNorm: 600015 Take 1 Tablet(s) Oral BID BID - Twice Daily 07/31/19 21 021 Inactive Start 08/01/20 pantoprazole 40 mg tablet,delayed release RxNorm: 368904 Take 1 Tablet(s) Oral QAM every morning 07/08/19 022 Inactive senna 8.6 mg tablet RxNorm: 861806 Take 1 Tablet(s) Oral QD 07/08/19 022 Inactive carbamazepine 200 mg tablet RxNorm: 397210 Take 1 Tablet(s) Oral BID 07/08/19 022 Inactive clopidogrel 75 mg tablet RxNorm: 612574 Take 1 Tablet(s) Oral QD 07/08/19 21 021 Inactive Blood Glucose Test strips RxNorm: Use 1 Test Strip QID at PRN 07/08/19 21 021 Inactive E11.42 Novolog Flexpen U-100 Insulin aspart 100 unit/mL (3 mL) subcutaneous RxNorm: 2377366 Administer per sliding scale Milliliter(s) Subcutaneous TID 151-200: 10 u; 201-250: 20 u; 251-300: 30 u; 301-350: 40 u; 351-400: 50 u. 07/08/19 21 022 Inactive lisinopril 5 mg tablet RxNorm: 708662 Take 1 Tablet(s) Oral QD 07/08/19 021 Inactive Novolog Flexpen U-100 Insulin aspart 100 unit/mL (3 mL) subcutaneous RxNorm: 0471287 Inject 85 Unit(s) Subcutaneous TID 07/08/19 022 Inactive pravastatin 80 mg tablet RxNorm: 493081 Take 1 Tablet(s) Oral QHS every night at bedtime 07/08/19 023 Inactive clotrimazole 1 % topical cream RxNorm: 313908 Apply to bilateral groin areas Topical BID 07/08/19 022 Inactive metoprolol succinate ER 200 mg tablet,extended release 24 hr RxNorm: 000037 Take 1 Tablet(s) Oral QD 07/08/19 021 Inactive Vitamin D3 25 mcg (1,000 unit) tablet RxNorm: 195392 Take 1 Tablet(s) Oral QD 07/08/19 021 Inactive isosorbide dinitrate 30 mg tablet RxNorm: 810520 Take 1 Tablet(s) Oral QD 07/08/19 021 Inactive Levemir FlexTouch U-100 Insulin 100 unit/mL (3 mL) subcutaneous pen RxNorm: 173205 Inject 140 Unit(s) Subcutaneous BID 07/08/19 021 Inactive torsemide 20 mg tablet RxNorm: 350748 Take 1 Tablet(s) Oral QD 07/08/19 21 023 Inactive venlafaxine 75 mg tablet RxNorm: 288300 Take 1 Tablet(s) Oral QD 07/08/19 21 021 Inactive acetaminophen 500 mg tablet RxNorm: 151829 Take 1 Tablet(s) Oral TID as needed for headache 06/18/19 21 021 Inactive acetaminophen 500 mg tablet RxNorm: 506078 Take 1 Tablet(s) Oral TID as needed for headache 06/18/19 21 021 Inactive Lyrica 100 mg capsule RxNorm: 222101 Take 1 Capsule(s) Oral QHS every night at bedtime 06/11/19 21 021 Inactive Lyrica 50 mg capsule RxNorm: 392893 Take 1 Capsule(s) Oral QAM every morning 06/10/19 21 021 Inactive hydrocortisone 2.5 % topical cream RxNorm: 900130 Apply to bilateral groin creases Topical BID 05/15/20 20 021 Inactive clotrimazole 1 % topical cream RxNorm: 832503 Apply to bilateral groin areas Topical BID 05/15/20 20 021 Inactive Lyrica 50 mg capsule RxNorm: 904153 Take 1 Capsule(s) Oral QAM every morning 05/14/20 20 020 Inactive Lyrica 100 mg capsule RxNorm: 871369 Take 1 Capsule(s) Oral QHS every night [...] Inactive Nystop 100,000 unit/gram topical powder RxNorm: 579281 Apply to abd folds, under breasts and L side of groin Topical BID x 14 days, then BID PRN 04/08/20 20 020 Inactive dx: yeast dermatitis Lyrica 100 mg capsule RxNorm: 320122 Take 1 Capsule(s) Oral QHS every night at bedtime 03/13/20 20 Inactive Lyrica 50 mg capsule RxNorm: 241704 Take 1 Capsule(s) Oral QAM every morning 03/13/20 20 Inactive ketoconazole 2 % shampoo RxNorm: 277695 Apply Topical two times a week with showers 03/11/20 20 Inactive cholecalciferol (vitamin D3) 50 mcg (2,000 unit) tablet RxNorm: 304752 Take 1 Tablet(s) Oral QD 03/11/20 20 Inactive Zetia 10 mg tablet RxNorm: 013688 Take 1 Tablet(s) Oral QD 03/07/20 20 021 Inactive Zetia 10 mg tablet RxNorm: 067973 Take 1 Tablet(s) Oral QD 03/07/20 20 Inactive Lyrica 50 mg capsule RxNorm: 168768 Take 1 Capsule(s) Oral QAM every morning 02/15/20 20 Inactive Lyrica 100 mg capsule RxNorm: 550726 Take 1 Capsule(s) Oral QHS every night at bedtime 02/15/20 20 Inactive Lyrica 100 mg capsule RxNorm: 054785 Take 1 Capsule(s) Oral QHS every night at bedtime 02/15/20 20 Inactive Lyrica 50 mg capsule RxNorm: 237858 Take 1 Capsule(s) Oral QAM every morning 02/15/20 20 Inactive metoprolol succinate ER 200 mg tablet,extended release 24 hr RxNorm: 819694 Take 1 Tablet(s) Oral QD 08/12/19 23 Active loperamide 2 mg capsule RxNorm: 451263 Take 1 Capsule(s) Oral QID as needed 06/12/19 22 Active hydralazine 50 mg tablet RxNorm: 375550 Take 1 Tablet(s) Oral QID 08/12/19 23 Active venlafaxine ER 75 mg capsule,extended release 24 hr RxNorm: 663717 Take 3 Capsule(s) Oral QD 06/12/19 22 023 Inactive polyethylene glycol 3350 17 gram/dose oral powder RxNorm: 418167 Take 17=1 capful Gram(s) Oral BID as needed mix with 4-8oz of liquid 06/12/19 22 024 Inactive icosapent ethyl 1 gram capsule RxNorm: 9176076 Take 2 Capsule(s) (2 gm) Oral BID with meals 10/07/19 23 023 Inactive Okay to dispense one 2gm tab if you have that available. Levemir FlexTouch U-100 Insulin 100 unit/mL (3 mL) subcutaneous pen RxNorm: 846409 Inject 80 Unit(s) Subcutaneous BID 07/14/19 23 023 Inactive Novolog Flexpen U-100 Insulin aspart 100 unit/mL (3 mL) subcutaneous RxNorm: 1755389 Insert 30 Unit(s) Subcutaneous TID with meals [...] Codes Status Date Referral: [facility] WPtel: [address] [id number] [place] Referral Records Received 09/21/2022 Referral: [facility] WPtel: [phone] [id number] [place] Referral Completed 05/28/2021 Referral: General Cardiology [...] [facility] attention.??Sister Jyotsna involved in his care cell# [phone]??Guardian: Giulia (tapan met in person 09/01/21), now [...] )Dr.??Bobbi note from 11.08.2023 at [facility] (follow up 6 months)Colon & Rectal Surgery visit scheduled for 03/08/24 with Matilde Pérez PA-C.?? 02/08/2024
--- OUTSIDE RECORDS SUMMARY | 2024-03-05 11:51 | XMS_ITS | CCD ---
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 Spider Assembler Name Role Phone Arpit MCKINLEY-C, [facility] Primary Care Provider Leona vailable [employer], [facility] Chronic Care Management U navailable Summary Purpose DataExchange Insurance Providers Payer name Policy type / Coverage type Covered republican ID Effective Begin Date Effective End Date Medicare [place] Medicare Part B [id number] Unknown Unknown Medicaid [place] Medicare Part B [id number] Unknown Unknown Family history Sister Brittany Suggs Diagnosis Age At Onset No Family Disease Entered N/A Runs in the family Diagnosis Age At Onset No Known Diseases N/A Sister Blanka Mcduffie Diagnosis Age At Onset No Family Disease Entered N/A Social History Social History Element Codes Description Effec tive Dates Tobacco history SNOMED CT: 703285729 Never smoker 01/16 Sexually Active? Unknown No [...] Residential 09/03/[address]: 030738949 No Alcohol Consum ption 09/02/2020 Allergies, Adverse Reactions, Alerts Substance Reaction Codes Entered Date Inactivated Date Status * NO KNOWN FOOD ALLERGIES Unknown 07/13/2023 No Inactive Date Active LISINOPRIL RxNorm: 87677 02/12/2020 No Inactive Da te Active Metformin [...] E78. 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 Humulin R U-500 (Concentrated) Insulin 500 unit/mL subcutaneous soln RxNorm: 784467 Inject 100 Unit(s) Subcutaneous TID 02/10/20 24 024 Inactive pregabalin 100 mg capsule RxNorm: 349798 Take 1 Capsule(s) Oral QAM every morning 02/07/20 24 024 Active isosorbide mononitrate ER 60 mg tablet,extended release 24 hr RxNorm: 147618 Take 1 Tablet(s) Oral QD 02/01/20 24 025 Active aripiprazole 15 mg tablet RxNorm: 442166 Take 1/2 Tablet(s) Oral QD 02/01/20 24 025 Active torsemide 20 mg tablet RxNorm: 383673 1 TAB ORALLY DAILY (DX: EDEMA) 01/27/20 No Stop Date Active potassium chloride ER 20 mEq tablet,extended release(part/cryst) RxNorm: 7213150 2 TABS (40MEQ) ORALLY TWICE DAILY (DX: HYPOKALEMIA) 01/27/20 24 No Stop Date Active cephalexin 500 mg capsule RxNorm: 967629 Take 1 Capsule(s) Oral QID 12/17/19 24 08/08/2 024 Inactive cephalexin 500 mg capsule RxNorm: 760826 Take 1 Capsule(s) Oral QID 12/17/19 24 Inactive acetaminophen 500 mg tablet RxNorm: 477873 (MAX APAP:4GM/24HR) Take 1 Tablet(s) Oral TID as needed for pain 12/10/19 24 Active torsemide 20 mg tablet RxNorm: 143001 Take 1 Tablet(s) Oral QD 10/26/19 24 [...] %-0.3 % drops in a dropperette RxNorm: 485047 Apply 1-2 Drop(s) Both eyes BID as needed 09/28/19 24 Active erythromycin 5 mg/gram (0.5 %) eye ointment RxNorm: 020244 Apply 1 Application Both eyes QHS every night at bedtime Instill ~1 cm ribbon into affected eye 09/28/19 24 Inactive Artificial Tears (PF) 0.1 %-0.3 % drops in a dropperette RxNorm: 946658 Apply 1-2 Drop(s) Both eyes BID as needed 09/28/19 24 024 Inactive erythromycin 5 mg/gram (0.5 %) eye ointment RxNorm: 799488 Apply 1 Application Both eyes QHS every night at bedtime Instill ~1 cm ribbon into affected eye 09/28/19 24 Inactive acetaminophen 500 mg tablet RxNorm: 229548 (MAX APAP:4GM/24HR) Take 1 Tablet(s) Oral TID as needed for pain 09/24/19 24 Inactive carvedilol 25 mg tablet RxNorm: 073160 Take 1 Tablet(s) Oral QD 09/08/19 24 No Stop Date Active pregabalin 100 mg capsule RxNorm: 494908 Take 1 Capsule(s) Oral QAM every morning 09/07/19 24 024 Inactive rosuvastatin 40 mg tablet RxNorm: 805070 Take 1 Tablet(s) Oral QPM every evening 07/13/19 24 No Stop Date Active ezetimibe 10 mg tablet RxNorm: 704261 Take 1 Tablet(s) Oral QD 07/13/19 24 No Stop Date Active bisacodyl 10 mg rectal suppository RxNorm: 309659 Insert 1 Suppository Rectal QD as needed 07/13/19 24 No Stop Date Active polyethylene glycol 3350 17 gram/dose oral powder RxNorm: 486539 Take 17 Gram(s) Oral BID as needed mix in 4-8ox water 07/13/19 24 No Stop Date Active ketoconazole 2 % shampoo RxNorm: 519330 Apply 1 Application Topical UD as directed 07/13/19 24 No Stop Date Active Ozempic 1 mg/dose (4 mg/3 mL) subcutaneous pen injector RxNorm: 6981105 Inject 1 Milligram(s) Subcutaneous QW once a week 07/13/19 24 No Stop Date Active Guaifenesin AC 10 mg-100 mg/5 mL oral liquid RxNorm: 038654 Take 10 Milliliter(s) Oral Q4H every four hours as needed 07/13/19 24 No Stop Date Active ammonium lactate 12 % topical cream RxNorm: 161640 Apply 1 Application Topical BID 07/13/19 24 No Stop Date Active hydrocortisone 2.5 % topical cream RxNorm: 602768 Apply 1 Application Topical BID as needed 07/13/19 24 No Stop Date Active rosuvastatin 20 mg sprinkle capsule RxNorm: 9375095 Take 1 Capsule(s) Oral QD 07/13/19 24 No Stop Date Active Vascepa 1 gram capsule RxNorm: 1925752 Take 2 Capsule(s) Oral BID 07/13/19 24 No Stop Date Active venlafaxine ER 75 mg capsule,extended release 24 hr RxNorm: 311506 Take 3 Capsule(s) Oral QD 07/13/19 24 No Stop Date Active aripiprazole 15 mg tablet RxNorm: 600039 Take 1/2 Tablet(s) Oral QD 07/13/19 24 024 Inactive isosorbide mononitrate ER 60 mg tablet,extended release 24 hr RxNorm: 901709 Take 1 Tablet(s) Oral QD 07/13/19 24 024 Inactive Basaglar KwikPen U-100 Insulin 100 unit/mL (3 mL) subcutaneous RxNorm: 3478553 Inject 30U SubQ twice daily 07/07/19 24 024 Inactive Please dispense one month supply. Basaglar KwikPen U-100 Insulin 100 unit/mL (3 mL) subcutaneous RxNorm: 1555663 Inject 30U SubQ twice daily 07/07/19 24 024 Inactive Please dispense one month supply. pregabalin 150 mg capsule RxNorm: 451954 Take 1 Capsule(s) Oral QHS every night at bedtime 07/05/19 24 024 Inactive pregabalin 150 mg capsule RxNorm: 852904 Take 1 Capsule(s) Oral QHS every night at bedtime 07/05/19 24 024 Inactive polyethylene glycol 3350 17 gram/dose oral powder RxNorm: 805214 Take 1 Packet Oral QD as needed (1 packet = 17g) mix with 4-8oz of liquid 06/15/19 24 024 Inactive bisacodyl 10 mg rectal suppository RxNorm: 659948 Insert one suppository per rectum once daily as needed for constipation 06/15/19 24 024 Inactive bisacodyl 10 mg rectal suppository RxNorm: 170533 Insert one suppository per rectum once daily as needed for constipation 06/15/19 24 024 Inactive pregabalin 100 mg capsule RxNorm: 922161 Take 1 Capsule(s) Oral QAM every morning 04/27/20 23 024 Inactive Levemir FlexPen 100 unit/mL (3 mL) solution subcutaneous insulin pen RxNorm: 421973 Inject 30 Unit(s) Subcutaneous BID 04/27/20 23 024 Inactive rosuvastatin 40 mg tablet RxNorm: 989194 Take 1 Tablet(s) Oral QPM every evening 04/16/20 23 024 Inactive D/C rosuvastatin 20mg venlafaxine ER 75 mg capsule,extended release 24 hr RxNorm: 842459 Take 3 Capsule(s) Oral QD 04/14/20 023 Inactive pregabalin 100 mg capsule RxNorm: 957480 Take 1 Capsule(s) Oral QAM every morning [...] strip clotrimazole 1 % topical cream RxNorm: 828574 Take apply topically to abdominal folds twice daily for 14 days 03/12/20 024 Inactive Ozempic 1 mg/dose (4 mg/3 mL) subcutaneous pen injector RxNorm: 4959556 Inject 1 Milligram(s) Subcutaneous QW once a week 03/11/20 23 023 Inactive rosuvastatin 20 mg tablet RxNorm: 644017 Take 1 Tablet(s) Oral QD 02/26/20 23 023 Inactive d/c pravastatin 80mg Ozempic 1 mg/dose (4 mg/3 mL) subcutaneous pen injector RxNorm: 9624385 Inject 1 Milligram(s) Subcutaneous QW once a week 02/20/20 23 023 Inactive pregabalin 150 mg capsule RxNorm: 261058 Take 1 Capsule(s) Oral HS at bed time 02/19/20 23 023 Inactive pregabalin 100 mg capsule RxNorm: 598835 Take 1 Capsule(s) Oral QAM every morning 02/18/20 23 023 Inactive venlafaxine ER 75 mg capsule,extended release 24 hr RxNorm: 666559 Take 3 Capsule(s) Oral QD 02/04/20 23 [...] 150 mg capsule,extended release 24 hr RxNorm: 236013 Take 1 Capsule(s) Oral QD 02/03/20 23 023 Inactive acetaminophen 500 mg tablet RxNorm: 201038 1 TABLET ORALLY 3 TIMES DAILY (MAX APAP:4GM/24HR) 12/15/19 23 023 Inactive clotrimazole 1 % topical cream RxNorm: 817551 apply 1g topically to top of feet and in between toes BID 12/09/19 23 023 Inactive potassium chloride ER 20 mEq tablet,extended release RxNorm: 058926 Take 1 Tablet(s) Oral BID 12/09/19 23 024 Inactive d/c 20mEq once daily (sent from hospital) nystatin 100,000 unit/gram topical powder RxNorm: 101420 APPLY TO AFFECTED AREAS TOPICALLY 2 TIMES DAILY 11/21/19 23 023 Inactive Nystop 100,000 unit/gram topical powder RxNorm: 994511 Apply to abd folds, under breasts and L side of groin Topical BID x 14 days, then BID PRN 11/20/19 23 023 Inactive dx: yeast dermatitis [place] Ultra Strength 4 %-30 %-10 % topical cream RxNorm: 351476 Apply 1 Gram(s) Topical QID PRN to feet and legs for neuropathic pain 11/11/19 23 024 Inactive clotrimazole 1 % topical cream RxNorm: 902187 Apply 1/2 Gram(s) Topical BID Apply to affected areas of groin, periarea, and abdominal topically 2 times daily 11/10/19 23 023 Inactive hydrocortisone 2.5 % topical cream RxNorm: 880651 Apply 1/2 Gram(s) Topical BID as needed 11/10/19 024 Inactive Levemir FlexPen 100 unit/mL (3 mL) solution subcutaneous insulin pen RxNorm: 726061 Inject 30 Unit(s) Subcutaneous BID 10/07/19 023 Inactive Humulin R U-500 (Concentrated) Insulin 500 unit/mL subcutaneous soln RxNorm: 008797 Inject 100 Unit(s) Subcutaneous TID 10/07/19 024 Inactive Ozempic 0.25 mg or 0.5 mg (2 mg/3 mL) subcutaneous pen injector RxNorm: 5953007 Inject 1/2 Milligram(s) Subcutaneous QW once a week 10/07/19 024 Inactive aripiprazole 15 mg tablet RxNorm: 436342 1/2 TAB (7.5MG) ORALLY DAILY (DX:MAJOR DEPRESSIVE DISORDER) 09/23/19 023 Inactive Accu-Chek Guide test strips RxNorm: Use 1 Test Strip QID 09/15/19 23 023 Inactive ok to substitute with any covered alternative test strip Lancets,Thin 28 gauge RxNorm: Use 1 as directed QID 09/15/19 23 023 Inactive torsemide 20 mg tablet RxNorm: 421637 Take 1 Tablet(s) Oral BID 09/09/19 024 Inactive d/c once daily dosing carvedilol 25 mg tablet RxNorm: 007460 Take 1 Tablet(s) Oral QD 08/25/19 23 024 Inactive pregabalin 150 mg capsule RxNorm: 681628 1 Capsule(s) Oral HS at bed time 08/18/19 023 Inactive pregabalin 100 mg capsule RxNorm: 575303 1 Capsule(s) Oral QAM every morning 08/18/19 23 023 Inactive carvedilol 25 mg tablet RxNorm: 792702 1 Tablet(s) Oral QD 07/28/19 23 023 Inactive lisinopril 20 mg tablet RxNorm: 727616 Give 1 Tablet(s) Oral QD 07/28/19 23 023 Inactive Lyrica 150 mg capsule RxNorm: 563735 Take 1 Capsule(s) Oral QHS every night at bedtime 07/19/19 23 023 Inactive d/c 100mg dose Diflucan 150 mg tablet RxNorm: 039720 Take 1 Tablet(s) Oral QD repeat on day 3 and 6 07/19/19 23 023 Inactive pregabalin 100 mg capsule RxNorm: 485422 Take 1 Capsule(s) Oral QAM every morning 07/19/19 23 023 Inactive gatifloxacin 0.5 % eye drops RxNorm: 395519 Instill 1 Drop(s) as directed TID Instill 1 drop in to affected eye(s) starting 1 day prior to surgery and continue until gone (do not exceed 4 weeks). 07/13/19 23 023 Inactive carvedilol 25 mg tablet RxNorm: 137974 2 Tablet(s) Oral BID 07/13/19 023 Inactive Humulin R Regular U-100 Insulin 100 unit/mL injection solution RxNorm: 207565 85 Unit(s) Injection TID 07/13/19 23 023 Inactive ketorolac 0.5 % eye drops RxNorm: 461044 Instill 1 Drop(s) as directed QID Instill 1 drop into affected eye(s) 4 times daily starting 1 day prior to surgery and continue until gone (do not exceed 4 weeks). 07/13/19 023 Inactive Diflucan 150 mg tablet RxNorm: 939384 Take 1 Tablet(s) Oral QD repeat on day 3 and 6 06/30/19 23 023 Inactive Accu-Chek Guide test strips RxNorm: Use 1 Test Strip QID Use 1 test strip to monitor blood glucose 4 times daily and as needed. Dx:E11.42. 06/23/19 23 023 Inactive ok to substitute with any covered alternative test strip dextromethorphan-gu aifenesin 10 mg-100 mg/5 mL oral liquid RxNorm: 655379 Take 10 Milliliter(s) Oral every 4 hours as needed for cough 06/19/19 023 Inactive dextromethorphan-gu aifenesin 10 mg-100 mg/5 mL oral liquid RxNorm: 912013 Take 10 Milliliter(s) Oral every 4 hours as needed for cough 06/19/19 023 Inactive Lyrica 150 mg capsule RxNorm: 471116 Take 1 Capsule(s) Oral QHS every night at bedtime 06/18/19 023 Inactive d/c 100mg dose aripiprazole 15 mg tablet RxNorm: 943555 /2 TAB (7.5MG) ORALLY DAILY (DX:MAJOR DEPRESSIVE DISORDER) 06/05/19 023 Inactive pregabalin 100 mg capsule RxNorm: 030371 1 Capsule(s) Oral QAM every morning 06/02/19 023 Inactive Banophen 50 mg capsule RxNorm: 8846607 Take 1 Capsule(s) Oral Q6H every 6 hours as needed 05/19/19 23 No Stop Date Active Novolog Flexpen U-100 Insulin aspart 100 unit/mL (3 mL) subcutaneous RxNorm: 1178662 Inject 10 Unit(s) Subcutaneous QHS every night at bedtime with nighttime snack 04/08/20 022 Inactive Novolog Flexpen U-100 Insulin aspart 100 unit/mL (3 mL) subcutaneous RxNorm: 0109189 Inject 42 Unit(s) Subcutaneous TID in addition to sliding scale 04/08/20 022 Inactive d/c 36u albuterol sulfate HFA 90 mcg/actuation aerosol inhaler RxNorm: 9381769 Take 2 Puff(s) Inhalation Q4H every four hours as needed as needed for SOB, cough, or wheezing 04/07/20 030 Active Banophen 50 mg capsule RxNorm: 2073277 Take 1 Capsule(s) Oral Q6H every 6 hours as needed 04/06/20 023 Inactive diphenhydramine 50 mg tablet RxNorm: 7951179 Take 1 Tablet(s) Oral Q6H every 6 hours as needed 04/06/20 22 022 Inactive diphenhydramine 50 mg tablet RxNorm: 1752192 1 Tablet(s) Oral Q6H every 6 hours as needed 04/06/20 22 022 Inactive Abilify 15 mg tablet RxNorm: 828697 1/2 Tablet(s) Oral QD 03/10/20 22 023 Inactive Shingrix (PF) 50 mcg/0.5 mL intramuscular suspension, kit RxNorm: 9642842 Administer 1/2 Milliliter(s) Intramuscular QD one time shingrix step 2 ( step 1 given 11/04/21) WITH needle - Nursing please administer upon arrival and once administered post a bridge message with date of administration, finance mgr, expiration date, and lot# so we can update [facility] 02/18/20 22 022 Inactive dispense with needle Shingrix (PF) 50 mcg/0.5 mL intramuscular suspension, kit RxNorm: 6627229 Administer 1/2 Milliliter(s) Intramuscular QD one time shingrix step 2 ( step 1 given 11/04/21) WITH needle - Nursing please administer upon arrival and once administered post a bridge message with date of administration, finance mgr, expiration date, and lot# so we can update [facility] 02/18/20 22 022 Inactive dispense with needle polyethylene glycol 3350 17 gram/dose oral powder RxNorm: 987524 Take 17=1 capful Gram(s) Oral QD mix with 4-8oz of liquid 01/08/20 22 023 Inactive take this in addition to BID prn order Lyrica 100 mg capsule RxNorm: 947105 Take 1 Capsule(s) Oral QAM every morning 01/08/20 22 022 Inactive d/c 50mg dose acetaminophen 500 mg tablet RxNorm: 841172 Take 1 Tablet(s) Oral TID 01/08/20 22 022 Inactive d/c PRN order Lyrica 150 mg capsule RxNorm: 916230 Take 1 Capsule(s) Oral QHS every night at bedtime 01/08/20 22 023 Inactive d/c 100mg dose Abilify 5 mg tablet RxNorm: 378290 Take 1 Tablet(s) Oral QD take 1 tab po QD #30 refill 5 dx: MDD 12/12/19 22 022 Inactive Abilify 5 mg tablet RxNorm: 576648 Take 1 Tablet(s) Oral QD take 1 tab po QD #30 refill 5 dx: MDD 12/12/19 22 022 Inactive Novolog Flexpen U-100 Insulin aspart 100 unit/mL (3 mL) subcutaneous RxNorm: 8238697 Inject 42 Unit(s) Subcutaneous TID in addition to sliding scale 12/10/19 22 022 Inactive d/c 36u chlorthalidone 25 mg tablet RxNorm: 086932 Take 1 Tablet(s) Oral QAM every morning 12/10/19 22 023 Inactive pregabalin 50 mg capsule RxNorm: 418030 Take 1 Capsule(s) Oral QAM every morning 11/12/19 22 022 Inactive tetanus-diphtheria toxoids-Td 2 Lf unit-2 Lf unit/0.5 mL IM suspension RxNorm: 139 Take 0.5 Miscellaneous Intramuscular 11/12/19 22 022 Inactive need tdap - nursing to administer upon arrival pregabalin 50 mg capsule RxNorm: 616275 Take 1 Capsule(s) Oral QAM every morning 10/16/19 22 022 Inactive pregabalin 50 mg capsule RxNorm: 991435 Take 1 Capsule(s) Oral QAM every morning 10/16/19 22 022 Inactive pregabalin 50 mg capsule RxNorm: 737671 1 Capsule(s) Oral QAM every morning 10/15/19 22 022 Inactive Shingrix (PF) 50 mcg/0.5 mL intramuscular suspension, kit RxNorm: 4102848 Administer 1/2 Milliliter(s) Intramuscular one time Nursing please administer upon arrival and once administered post a bridge message with date of administration, finance mgr, expiration date, and lot# so we can update [facility]. 10/09/19 22 022 Inactive shingrix step 1 Shingrix (PF) 50 mcg/0.5 mL intramuscular suspension, kit RxNorm: 3554495 Administer 1/2 Milliliter(s) Intramuscular one time Nursing please administer upon arrival and once administered post a bridge message with date of administration, finance mgr, expiration date, and lot# so we can update [facility]. 10/09/19 22 022 Inactive shingrix step 1 cholecalciferol (vitamin D3) 1,250 mcg (50,000 unit) capsule RxNorm: 500049 Take 1 Capsule(s) Oral QW once a [...] aspart 100 unit/mL (3 mL) subcutaneous RxNorm: 4972146 Inject 10 Unit(s) Subcutaneous QHS every night at bedtime with nighttime snack 10/08/19 22 Inactive Shingrix (PF) 50 mcg/0.5 mL intramuscular suspension, kit RxNorm: 0064401 ADMINISTER 2-DOSE SERIES PER CDC GUIDELINES 10/08/19 22 Active Shingrix (PF) 50 mcg/0.5 mL intramuscular suspension, kit RxNorm: 1685586 ADMINISTER 2-DOSE SERIES PER CDC GUIDELINES 10/08/19 22 Inactive Novolog Flexpen U-100 Insulin aspart 100 unit/mL (3 mL) subcutaneous RxNorm: 5599924 Inject 36 Unit(s) Subcutaneous TID in addition to sliding scale 10/08/19 22 Inactive Novofine Autocover 30 gauge x 1/3 needle RxNorm: Use 1 Miscellaneous UD as directed Use 1 needle as directed to administer insulin 5 times a day Dx:E11.42. 10/03/19 22 Inactive ok to substitute with any covered alternative pen needle benzoyl peroxide 10 % topical cleanser RxNorm: 310320 Apply 1 Application Topical QD apply to face, wash rinse and dry once daily (may change to QOD if drying) 08/19/19 22 05/03/2 022 Inactive (%covered by insurance) #60ml refill 11 dx: acne benzoyl peroxide 10 % topical cleanser RxNorm: 018646 Apply 1 Application Topical QD apply to face, wash rinse and dry once daily (may change to QOD if drying) 08/19/19 22 022 Inactive (%covered by insurance) #60ml refill 11 dx: acne benzoyl peroxide 10 % topical cleanser RxNorm: 783515 Apply 1 Application Topical QD apply to face, wash rinse and dry once daily (may change to QOD if drying) 08/19/19 22 022 Inactive (%covered by insurance) #60ml refill 11 dx: acne Lyrica 50 mg capsule RxNorm: 721248 Take 1 Capsule(s) Oral QAM every morning Take 1 capsule by mouth once daily 08/19/19 Inactive benzoyl peroxide 10 % topical cleanser RxNorm: 812099 Apply 1 Application Topical QD apply to face, wash rinse and dry once daily (may change to QOD if drying) 08/19/19 022 Inactive (%covered by insurance) #60ml refill 11 dx: acne Lyrica 100 mg capsule RxNorm: 648296 Take 1 Capsule(s) Oral QHS every night at bedtime Take 1 capsule by mouth once daily at bedtime 08/19/19 022 Inactive Lyrica 100 mg capsule RxNorm: 192693 Take 1 Capsule(s) Oral QHS every night at bedtime Take 1 capsule by mouth once daily at bedtime 08/16/19 Inactive Lyrica 50 mg capsule RxNorm: 110410 Take 1 Capsule(s) Oral QAM every morning Take 1 capsule by mouth once daily 08/16/19 Inactive Levemir FlexTouch U-100 Insulin 100 unit/mL (3 mL) subcutaneous pen RxNorm: 744055 Inject 86 Unit(s) Subcutaneous BID 08/05/19 22 Inactive d/c 83units BID Lyrica 100 mg capsule RxNorm: 746904 Take 1 Capsule(s) Oral QHS every night at bedtime Take 1 capsule by mouth once daily at bedtime 07/14/19 22 Inactive Lyrica 50 mg capsule RxNorm: 717977 Take 1 Capsule(s) Oral QAM every morning Take 1 capsule by mouth once daily 07/14/19 22 Inactive Levemir FlexTouch U-100 Insulin 100 unit/mL (3 mL) subcutaneous pen RxNorm: 499717 Inject 83 Unit(s) Subcutaneous BID 07/08/19 22 [...] test strip hydralazine 50 mg tablet RxNorm: 213402 Take 1 Tablet(s) Oral QID 05/05/20 022 Inactive venlafaxine ER 225 mg tablet,extended release 24 hr RxNorm: 829736 Take 1 Tablet(s) Oral QD 05/05/20 Inactive venlafaxine ER 225 mg tablet,extended release 24 hr RxNorm: 115495 Take 1 Tablet(s) Oral QD 05/05/20 022 Inactive isosorbide mononitrate ER 30 mg tablet,extended release 24 hr RxNorm: 802268 Take 1 Tablet(s) Oral QD 05/05/20 024 Inactive hydralazine 50 mg tablet RxNorm: 246801 Take 1 Tablet(s) Oral QID 05/05/20 Inactive aspirin 81 mg tablet,delayed release RxNorm: 994360 Take 1 Tablet(s) Oral QD 03/31/20 022 Inactive Vitamin D2 1,250 mcg (50,000 unit) capsule RxNorm: 0437521 Take 1 Capsule(s) Oral QW once a week x 12 weeks 03/31/20 022 Inactive Vitamin D2 1,250 mcg (50,000 unit) capsule RxNorm: 0944930 Take 1 Capsule(s) Oral QW once a week 03/31/20 Inactive Zetia 10 mg tablet RxNorm: 709817 Take 1 Tablet(s) Oral QD 03/31/20 024 Inactive Zetia 10 mg tablet RxNorm: 866807 Take 1 Tablet(s) Oral QD 03/31/20 Inactive hydralazine 25 mg tablet RxNorm: 495639 Take 1 Tablet(s) Oral QID 03/31/20 021 Inactive hydralazine 25 mg tablet RxNorm: 242394 Take 1 Tablet(s) Oral QID 03/31/20 021 Inactive hydralazine 10 mg tablet RxNorm: 040300 Take 1 Tablet(s) Oral QID 03/03/20 021 Inactive cephalexin 500 mg tablet RxNorm: 529936 Take 1 Tablet(s) Oral QID 02/27/20 021 Inactive cephalexin 500 mg tablet RxNorm: 744380 Take 1 Tablet(s) Oral QID 02/27/20 21 021 Inactive lisinopril 40 mg tablet RxNorm: 928746 Take 1 Tablet(s) Oral QD 02/11/20 21 023 Inactive Eliquis 5 mg tablet RxNorm: 9577393 Take 1 Tablet(s) Oral BID 01/05/20 21 022 Inactive Eliquis 5 mg tablet RxNorm: 5301447 Take 2 Tablet(s) Oral QD 01/01/20 21 021 Inactive Lyrica 50 mg capsule RxNorm: 425170 Take 1 Capsule(s) Oral QAM every morning 12/24/19 021 Inactive Lyrica 100 mg capsule RxNorm: 580235 Take 1 Capsule(s) Oral QHS every night at bedtime 12/24/19 021 Inactive clotrimazole 1 % topical cream RxNorm: 477810 Apply to right foot and toes Topical BID 12/04/19 21 023 Inactive metoprolol succinate ER 200 mg tablet,extended release 24 hr RxNorm: 296016 Take 1 Tablet(s) Oral QD 12/04/19 023 Inactive ciprofloxacin 500 mg tablet RxNorm: 586540 Take 1 Tablet(s) Oral QD 11/30/19 21 021 Inactive DX ofloxacin otic drops Accu-Chek Guide test strips RxNorm: USE 1 TO CHECK GLUCOSE 4 TIMES DAILY AND NEEDED 11/15/19 21 023 Inactive Blood Glucose Test strips RxNorm: Use 1 Test Strip QID at PRN 11/05/19 21 023 Inactive E11.42 lisinopril 30 mg tablet RxNorm: 914000 Take 1 Tablet(s) Oral QD 10/30/19 021 Inactive lisinopril 20 mg tablet RxNorm: 168335 Take 1 Tablet(s) Oral QD 10/23/19 21 021 Inactive lisinopril 20 mg tablet RxNorm: 009232 Take 1 Tablet(s) Oral QD 10/23/19 21 021 Inactive lisinopril 10 mg tablet RxNorm: 190758 Take 1 Tablet(s) Oral QD 10/02/19 21 021 Inactive icosapent ethyl 1 gram capsule RxNorm: 1945698 Take 2 Capsule(s) (2 gm) Oral BID with meals 09/12/19 024 Inactive Okay to dispense one 2gm tab if you have that available. icosapent ethyl 1 gram capsule RxNorm: 1578425 Take 2 Capsule(s) Oral BID 09/12/19 21 021 Inactive Okay to dispense one 2gm tab if you have that available. amlodipine 10 mg tablet RxNorm: 045058 Take 1 Tablet(s) Oral QD 09/04/19 21 022 Inactive aspirin 81 mg tablet,delayed release RxNorm: 075192 Take 1 Tablet(s) Oral QD 09/04/19 021 Inactive Levemir FlexTouch U-100 Insulin 100 unit/mL (3 mL) subcutaneous pen RxNorm: 097253 Inject 150 Unit(s) Subcutaneous BID 09/04/19 21 022 Inactive venlafaxine ER 150 mg tablet,extended release 24 hr RxNorm: 965559 Take 1 Tablet(s) Oral QD 09/04/19 021 Inactive clotrimazole-betame thasone 1 %-0.05 % topical cream RxNorm: 733868 Apply to rash on red area on left abdomen/chest Topical BID 08/10/19 21 021 Inactive amlodipine 5 mg tablet RxNorm: 345145 Take 1 Tablet(s) Oral QD 07/31/19 21 021 Inactive cephalexin 500 mg tablet RxNorm: 170181 Take 1 Tablet(s) Oral BID BID - Twice Daily 07/31/19 21 021 Inactive Start 08/01/20 pantoprazole 40 mg tablet,delayed release RxNorm: 661079 Take 1 Tablet(s) Oral QAM every morning 07/08/19 21 022 Inactive senna 8.6 mg tablet RxNorm: 100434 Take 1 Tablet(s) Oral QD 07/08/19 21 022 Inactive carbamazepine 200 mg tablet RxNorm: 768025 Take 1 Tablet(s) Oral BID 07/08/19 21 022 Inactive clopidogrel 75 mg tablet RxNorm: 281764 Take 1 Tablet(s) Oral QD 07/08/19 21 021 Inactive Blood Glucose Test strips RxNorm: Use 1 Test Strip QID at PRN 07/08/19 21 Inactive E11.42 Novolog Flexpen U-100 Insulin aspart 100 unit/mL (3 mL) subcutaneous RxNorm: 3419111 Administer per sliding scale Milliliter(s) Subcutaneous TID 151-200: 10 u; 201-250: 20 u; 251-300: 30 u; 301-350: 40 u; 351-400: 50 u. 07/08/19 21 022 Inactive lisinopril 5 mg tablet RxNorm: 737356 Take 1 Tablet(s) Oral QD 07/08/19 Inactive Novolog Flexpen U-100 Insulin aspart 100 unit/mL (3 mL) subcutaneous RxNorm: 7959871 Inject 85 Unit(s) Subcutaneous TID 07/08/19 022 Inactive pravastatin 80 mg tablet RxNorm: 419465 Take 1 Tablet(s) Oral QHS every night at bedtime 07/08/19 023 Inactive clotrimazole 1 % topical cream RxNorm: 854044 Apply to bilateral groin areas Topical BID 07/08/19 022 Inactive metoprolol succinate ER 200 mg tablet,extended release 24 hr RxNorm: 461818 Take 1 Tablet(s) Oral QD 07/08/19 21 021 Inactive Vitamin D3 25 mcg (1,000 unit) tablet RxNorm: 594341 Take 1 Tablet(s) Oral QD 07/08/19 21 021 Inactive isosorbide dinitrate 30 mg tablet RxNorm: 492049 Take 1 Tablet(s) Oral QD 07/08/19 21 021 Inactive Levemir FlexTouch U-100 Insulin 100 unit/mL (3 mL) subcutaneous pen RxNorm: 918342 Inject 140 Unit(s) Subcutaneous BID 07/08/19 21 021 Inactive torsemide 20 mg tablet RxNorm: 007845 Take 1 Tablet(s) Oral QD 07/08/19 21 023 Inactive venlafaxine 75 mg tablet RxNorm: 462878 Take 1 Tablet(s) Oral QD 07/08/19 21 021 Inactive acetaminophen 500 mg tablet RxNorm: 935335 Take 1 Tablet(s) Oral TID as needed for headache 06/18/19 21 021 Inactive acetaminophen 500 mg tablet RxNorm: 337166 Take 1 Tablet(s) Oral TID as needed for headache 06/18/19 21 021 Inactive Lyrica 100 mg capsule RxNorm: 957391 Take 1 Capsule(s) Oral QHS every night at bedtime 06/11/19 21 021 Inactive Lyrica 50 mg capsule RxNorm: 868707 Take 1 Capsule(s) Oral QAM every morning 06/10/19 21 021 Inactive hydrocortisone 2.5 % topical cream RxNorm: 531477 Apply to bilateral groin creases Topical BID 05/15/20 20 021 Inactive clotrimazole 1 % topical cream RxNorm: 983414 Apply to bilateral groin areas Topical BID 05/15/20 20 021 Inactive Lyrica 50 mg capsule RxNorm: 444640 Take 1 Capsule(s) Oral QAM every morning 05/14/20 20 020 Inactive Lyrica 100 mg capsule RxNorm: 478691 Take 1 Capsule(s) Oral QHS every night [...] Inactive Nystop 100,000 unit/gram topical powder RxNorm: 476767 Apply to abd folds, under breasts and L side of groin Topical BID x 14 days, then BID PRN 04/08/20 20 Inactive dx: yeast dermatitis Lyrica 100 mg capsule RxNorm: 042445 Take 1 Capsule(s) Oral QHS every night at bedtime 03/13/20 20 Inactive Lyrica 50 mg capsule RxNorm: 898727 Take 1 Capsule(s) Oral QAM every morning 03/13/20 20 Inactive ketoconazole 2 % shampoo RxNorm: 957433 Apply Topical two times a week with showers 03/11/20 20 Inactive cholecalciferol (vitamin D3) 50 mcg (2,000 unit) tablet RxNorm: 027235 Take 1 Tablet(s) Oral QD 03/11/20 20 021 Inactive Zetia 10 mg tablet RxNorm: 054265 Take 1 Tablet(s) Oral QD 03/07/20 20 021 Inactive Zetia 10 mg tablet RxNorm: 229262 Take 1 Tablet(s) Oral QD 03/07/20 20 Inactive Lyrica 50 mg capsule RxNorm: 467745 Take 1 Capsule(s) Oral QAM every morning 02/15/20 20 Inactive Lyrica 100 mg capsule RxNorm: 416976 Take 1 Capsule(s) Oral QHS every night at bedtime 02/15/20 20 Inactive Lyrica 100 mg capsule RxNorm: 495382 Take 1 Capsule(s) Oral QHS every night at bedtime 02/15/20 20 Inactive Lyrica 50 mg capsule RxNorm: 151707 Take 1 Capsule(s) Oral QAM every morning 02/15/20 20 Inactive metoprolol succinate ER 200 mg tablet,extended release 24 hr RxNorm: 949257 Take 1 Tablet(s) Oral QD 08/12/19 23 Active loperamide 2 mg capsule RxNorm: 120253 Take 1 Capsule(s) Oral QID as needed 06/12/19 22 Active hydralazine 50 mg tablet RxNorm: 828207 Take 1 Tablet(s) Oral QID 08/12/19 23 Active Soft Touch Lancets RxNorm: miscellaneous 03/04/20 24 Active venlafaxine ER 75 mg capsule,extended release 24 hr RxNorm: 439205 Take 3 Capsule(s) Oral QD 06/12/19 22 023 Inactive polyethylene glycol 3350 17 gram/dose oral powder RxNorm: 468902 Take 17=1 capful Gram(s) Oral BID as needed mix with 4-8oz of liquid 06/12/19 22 024 Inactive icosapent ethyl 1 gram capsule RxNorm: 5501009 Take 2 Capsule(s) (2 gm) Oral BID with meals 10/07/19 23 023 Inactive Okay to dispense one 2gm tab if you have that available. Levemir FlexTouch U-100 Insulin 100 unit/mL (3 mL) subcutaneous pen RxNorm: 831988 Inject 80 Unit(s) Subcutaneous BID 07/14/19 23 023 Inactive Novolog Flexpen U-100 Insulin aspart 100 unit/mL (3 mL) subcutaneous RxNorm: 9516600 Insert 30 Unit(s) Subcutaneous TID with meals [...] Referral: [facility] WPtel: [address] , [address] [id number] Referral Records Received 09/21/2022 Referral: [facility] WPtel: [address] [id number] [place] Referral Completed 05/28/2021 Referral: General Cardiology [...] attention.??Sister Jyotsna involved in his care cell# [phone]??Guardian: Giulia (tapan met in person 09/01/21), now [...] )??Bobbi note from 11.08.2023 at [facility] (follow up 6 months)Colon & Rectal Surgery visit scheduled for 03/08/24 with Matilde Pérez PA-C.?? 02/08/2024
[2024-03-05 11:52] LABS: Basophils Absolute Auto 0.02 K/uL (0.00-0.30); Basophils Percent Auto 0.3 % (0.0-3.0); Eosinophils Absolute Auto 0.11 K/uL (0.00-0.50); Eosinophils Percent Auto 1.4 % (0.0-7.0); Hemoglobin* 12.7 gm/dL (13.5-17.5); Immature Granulocytes Abs Auto 0.02 K/uL (0.00-0.30); Immature Granulocytes Pct Auto 0.3 %; Lymphocytes Percent Auto 17.4 % (20-44); Mean Corpuscular HGB Conc 33 gm/dL (32-36); Mean Corpuscular Hemoglobin 28 pg (26-34); Mean Corpuscular Volume 84 fL (80-100); Neutrophils Percent Auto 75.6 % (42.0-72.0); Platelet Count* 170 K/uL (140-440); RDW Coefficient of Variation % 14.2 % (11.5-15.5); Red Blood Count 4.53 m/uL (4.30-5.90); White Blood Count* 7.86 K/uL (4.50-11.00)
--- OUTSIDE RECORDS SUMMARY | 2024-03-05 11:52 | XMS_ITS | Encounter Summary ---
Author Organization [facility] Address [address] [place] [address] Care Team Providers Care Hot Mill Observer Name Role Phone Services, [facility] Physician Primary Care Provi sadia Prince Tobar MD Unavailable [phone] Prince Tobar MD Unavailable [phone] Reason for Referral * Consultation (Priority: 1-2 Weeks) - Pending Review Specialty Diagnoses / Procedures Referred By Contjohnny dalal Referred To Contact Colon and Rectal Surgery Diagnoses Anal fissure External hemorrhoids Reinaldo Beltran PA-C [facility] [address] [place] [address] Referral ID Status Reason Start Date Expiration Date V isits Requested Visits Authorized [id number] Pending Review 12/28/2023 12/27/2024 1 1 Question Answer Reason for Referral: Anal Fissure Special Concerns: Other My Clinical Question Is: Anal fissure, taking Apixaban Scheduling Instructions: [employer] will call you to coordinate care as prescribed your provider. If you don? t hear from a apprenticeship representative within 2 business days, please call . Comments Please be aware that coverage of these services is subject to the terms and limitations of your health insurance plan. Call member services at your health plan with any benefit or coverage questions. [employer] will call you to coordinate care as prescribed your provider. If you don? t hear from a apprenticeship representative within 2 business days, please call . Reason for Visit * Reason Comments Rectal Bleeding Encounter Details Date Type Department Care Team (Late st Contact Info) Description 12/28/2023 6:08 PM CDT - 12/29/2023 12:59 AM CDT Emergency [facility] Emergency Dept [address] [place] [address] Agustin Cesar MD [address] [place] [address] Anal fissure; External hemorrhoids Discharge Disposition: Home [...] Choose not to disclose 2021 8:14 AM CAT BREEDER documented as of this encounter Last Filed [...] PM CDT Thank you for coming to [facility] emergency department. The bleeding you noted [...] mouth daily cholecalciferol (VITAMIN D3) 1250 mcg (10789 units) capsule Take 1,250 mcg by mouth [...] 7 days 4 g 12/28/2023 nystatin (MYCOSTATIN) 615750 UNIT/GM external powder Apply topically 2 times [...] History Chief Complaint: Rectal Bleeding HPI Leonid Laehy is a 63 year old male who [...] MG tablet cholecalciferol (VITAMIN D3) 1250 mcg (02756 units) capsule clotrimazole (LOTRIMIN) 1 % external [...] 200 MG 24 hr tablet nystatin (MYCOSTATIN) 415165 UNIT/GM external powder pantoprazole (PROTONIX) 40 MG [...] POS Antibody Screen Negative SPECIMEN EXPIRATION DATE [id number] ABO/RH TYPE AND SCREEN Emergency Department Course [...] 1. Anal fissure K60.2 Adult Colorectal Surgery Experimental Worker Referral 2. External hemorrhoids K64.4 Adult Colorectal Surgery Experimental Worker Referral Discharge Medications: New Prescriptions HYDROCORTISONE, PERIANAL, [...] yesterday, he went to a clinic in [place], he is unsure of what was done [...] MG tablet cholecalciferol (VITAMIN D3) 1250 mcg (03794 units) capsule clotrimazole (LOTRIMIN) 1 % external [...] 200 MG 24 hr tablet nystatin (MYCOSTATIN) 099865 UNIT/GM external powder pantoprazole (PROTONIX) 40 MG [...] POS Antibody Screen Negative SPECIMEN EXPIRATION DATE [id number] ABO/RH TYPE AND SCREEN Imaging No orders to display Independent Interpretation None ED Course Medications Administered Medications - No data to display Procedures Procedures Discussion of Management Staffed with Dr. Cesar ED Course ED Course as of 12/28/231936Dec 28, 20231838 I evaluated and examined the patient 1902 Rectal exam with RN at bedside Additional Documentation None Medical Decision Making / Diagnosis [facility] Diagnoses: None MIPS None [facility] Leonid Leahy is a 63 [...] 1. Anal fissure K60.2 Adult Colorectal Surgery Experimental Worker Referral 2. External hemorrhoids K64.4 Adult Colorectal Surgery Experimental Worker Referral Discharge Medications New Prescriptions HYDROCORTISONE, PERIANAL, [...] Pt comes from assisted living facility in [place]. * Tamiko Monzon RN - 12/28/2023 6:08 PM CDT Bed: ED01 Expected date: Expected time: Means of arrival: Comments: [id number] documented in this encounter Plan of Treatment Upcoming Encounters Date Type Department Care Team (Late st Contact Info) Description 03/08/2024 PRE VISIT [facility] [address] [address] Matilde Pérez PA-C [address] [place] [address] Previsit 03/08/2024 12:00 PM CDT Office Visit [facility] [address] [phone] Reinaldo Beltran PA-C [facility] [address] [place] [phone] Matilde Pérez PA-C [address] [place] [address] Scheduled Referrals Name Type Priority Associated Diagnoses Orde r Schedule Adult Colorectal Surgery Experimental Worker Referral Referral Priority: 1-2 Weeks Anal fissure [...] CDT RH BLOOD BANK SPECIMEN EXPIRATION DATE [id number] 12/28/2023 6:28 PM CDT RH BLOOD BANK Blood STRUCTURE OF RIGHT UPPER LIMB / Unknown Venipuncture / Unknown 12/28/2023 6:41 PM CDT 12/28/2023 6:46 PM CDT Agustin Cesar MD LAB - BLOOD BAN K TEST ORDER [place] [address], [facility] * (ABNORMAL) CBC with platelets and differential [...] - BLOOD ORD ERABLES LABORATORY [facility] Acute Care Lab [address] Lab (1st floor, no room number) [place] [address], [facility] * (ABNORMAL) Comprehensive metabolic panel (12/28/2023 6:41 [...] - BLOOD ORD ERABLES LABORATORY [facility] Acute Care Lab [address] [facility] Lab (1st floor, no room number) [place] [address], [facility] * Partial thromboplastin time (12/28/2023 6:41 PM CDT) aPTT 28 22 - 38 Seconds 12/28/2023 7:00 PM CDT RH LABORATORY Blood STRUCTURE OF RIGHT UPPER LIMB / Unknown Venipuncture / Unknown 12/28/2023 6:41 PM CDT 12/28/2023 6:46 PM CDT Agustin Cesar MD LAB - BLOOD ORD ERABLES [facility] Care Lab [address] Lab (1st floor, no room number) [place] [address] * INR (12/28/2023 6:41 PM CDT) INR 1.01 0.85 - 1.15 12/28/2023 7:00 PM CDT LABORATORY Blood STRUCTURE OF RIGHT UPPER LIMB / Unknown Venipuncture / Unknown 12/28/2023 6:41 PM CDT 12/28/2023 6:46 PM CDT Agustin Cesar MD LAB - BLOOD ORD ASHISH Performing Organization Address City/[facility]/ZIP Co de Phone Number [facility] Care Lab [address] Lab (1st floor, no room number) [place] [address] documented in this encounter Visit Diagnoses Diagnosis Anal fissure External hemorrhoids External hemorrhoids without mention of complication documented in this encounter Care Teams Hot Mill Observer Relationship Specialty Start Date End Date Services, [facility] Physician [address] [place] [address] PCP - General 05/22/21 Prince Tobar MD [address] [place] [address] Cardiovascular Disease 03/26/22 Prince Tobar MD [address] [place] [address] Assigned Heart and Vascular Provider 05/30/22 documented as of this encounter
--- OUTSIDE RECORDS SUMMARY | 2024-03-05 11:52 | XMS_ITS | Referral Summary ---
Author Organization [facility] Address [address] [place] [address] Care Team Providers Care Basin Finish Operator Tig Welder Name Role Phone Services, [facility] Physician Primary Care Provi sadia Prince Tobar MD Unavailable Prince Tobar MD Unavailable Matilde Pérez PA-C Unavailable [phone] Encounters Date Type Department Care Team Description 12/28/2023 6:08 PM CDT - 12/29/2023 12:59 AM T Emergency [facility] Emergency Dept [address] [place] [address] Agustin Cesar MD Anal fissure; External hemorrhoids [...] daily Active cholecalciferol (VITAMIN D3) 1250 mcg (77555 units) capsule Take 1,250 mcg by mouth every 7 days on Wednesdays. Active venlafaxine (EFFEXOR-XR) 75 MG 24 hr capsule Take 225 mg by mouth daily Active hydrALAZINE (APRESOLINE) 50 MG tablet Take 50 mg by mouth 4 times daily Active polyethylene glycol (MIRALAX) 17 GM/Dose powder Take 17 g by mouth daily Active nystatin (MYCOSTATIN) 516265 UNIT/GM external powder Apply topically 2 times [...] Next Due COVID-19 MONOVALENT 12+ (Pfizer) 06/25/2020,05/17 [id number] Novel Flu 05/07/2009 Hepatitis B, Adult 02/16/2014,10/12/2013, [...] Choose not to disclose 2021 8:14 AM SHANK STAPLER Last Filed Vital Signs Vital Sign Reading [...] [facility] [address] [place] [address] Matilde Pérez PA-C [address] [place] [address] Previsit 03/08/2024 12:00 PM CDT Office Visit [facility] [address] [place] [address] Reinaldo Beltran PA-C [facility] [address] [place] [phone] Matilde Pérez PA-C [address] [place] [address] Procedures Procedure Name Priority Date/Time Associated Diagnosis [...] without heart failure Atherosclerotic heart disease of [place] coronary artery without angina pectoris Body mass index (BMI) 60.0-69.9, adult (H) Chronic kidney disease, unspecified from Last 3 Months or Most Recently Relevant to Health Maintenance Results * (ABNORMAL) CBC with platelets and differential (12/28/2023 6:41 PM CDT) [facility] WBC Count 5.9 4.0 - 11.0 [...] LAB - BLOOD ORD ERABLES RH LABORATORY [facility] Acute Care Lab [address] Lab (1st floor, no room number) [place] [address] * Adult Type and Screen (12/28/2023 6:41 PM CDT) ABO/RH(D) A POS 12/28/2023 6:28 PM CDT RH BLOOD BANK Antibody Screen Negative Negative 12/28/2023 6:28 PM CDT RH BLOOD BANK SPECIMEN EXPIRATION DATE [id number] 12/28/2023 6:28 PM CDT RH BLOOD BANK Blood STRUCTURE OF RIGHT UPPER LIMB / Unknown Venipuncture / Unknown 12/28/2023 6:41 PM CDT 12/28/2023 6:46 PM CDT Agustin Cesar MD LAB - BLOOD BAN K TEST ORDER Performing Organization Address City/[facility]/ZIP Co de Phone Number RH BLOOD BANK [address] [place] [address] [place] [address] * INR (12/28/2023 6:41 PM CDT) INR 1.01 0.85 - 1.15 12/28/2023 7:00 PM CDT RH LABORATORY Blood STRUCTURE OF RIGHT UPPER LIMB / Unknown Venipuncture / Unknown 12/28/2023 6:41 PM CDT 12/28/2023 6:46 PM CDT Agustin Cesar MD LAB - BLOOD ORD ERABLES LABORATORY [facility] Acute Care Lab [address] Lab (1st floor, no room number) [place] [phone] [place] [address] * Partial thromboplastin time (12/28/2023 6:41 PM CDT) aPTT 28 22 - 38 Seconds 12/28/2023 7:00 PM CDT LABORATORY Blood STRUCTURE OF RIGHT UPPER LIMB / Unknown Venipuncture / Unknown 12/28/2023 6:41 PM CDT 12/28/2023 6:46 PM CDT Agustin Cesar MD LAB - BLOOD ORD ERABLES Performing Organization Address [facility]/ZIP Co de Phone Number LABORATORY [facility] Acute Care Lab [address] Lab (1st floor, no room number) [address] * (ABNORMAL) Comprehensive metabolic panel (12/28/2023 [...] MD LAB - BLOOD ORD ERABLES LABORATORY [facility] Acute Care Lab [address] [facility] Lab (1st floor, no room number) [place] [address], [facility] * (ABNORMAL) Hemoglobin A1c (10/15/2023 3:13 PM CDT) Hemoglobin A1C 10.8(H) <5.7 % 10/15/2023 4:57 PM CDT RH LABORATORY Comment: Normal <5.7% Prediabetes 5.7-6.4% ?? Diabetes 6.5% or higher Note: Adopted from ADA consensus guidelines. Blood BLOOD SPECIMEN / Unknown Client Draw / Unknown 10/15/2023 3:13 PM CDT 10/15/2023 4:25 PM CDT Harrison Munson LAB - BLOOD ORDERABL ES [facility] Acute Care Lab [address] Lab (1st floor, no room number) [place] [address], [facility] from Last 3 Months or Most Recently Relevant to Health Maintenance Advance Directives For more information, please contact: [phone] Documents on File Type Date Recorded Patient Investment Strategist Expl anation Advance Directives and Living Will [...] patie nt/ legal decision maker Care Teams Basin Finish Operator Tig Welder Relationship Specialty Start Date End Date Services, [facility] Physician [address] [facility], [address] [address] PCP - General 05/22/21 Prince Tobar MD [address] [place] [address]84[address] Cardiovascular Disease 03/26/22 Prince Tobar MD [address] [place] [address] 070735 Assigned Heart and Vascular Provider 05/30/22 Matilde Pérez PA-C [address] [place] [address] Physician Cube Machine Tender Physician Cube Machine Tender - Surgical 12/30/23
--- OUTSIDE RECORDS SUMMARY | 2024-03-05 11:52 | XMS_ITS | Encounter Summary ---
Author Organization [facility] Address [address] [place] [address] Care Team Providers Care Can Filling Room Sweeper Name Role Phone Services, [facility] Physician Primary Care Provi sadia [...] Choose not to disclose 2021 8:14 AM INSTALLER SOFT TOP documented as of this encounter Plan of Treatment Upcoming Encounters Date Type Department Care Team (Late st Contact Info) Description 03/08/2024 PRE VISIT [facility] and Rectal Surgery Clinic [address] [address] Matilde Pérez PA-C [address] [place] [address] Previsit 03/08/2024 12:00 PM CDT Office Visit [facility] [address] [place] [phone] Reinaldo Beltran PA-C [facility] [address] [facility] [address] [place] [address] Matilde Pérez PA-C [address] [place], [place] [address] documented as of this encounter Visit Diagnoses Not on filedocumented in this encounter Care Teams Can Filling Room Sweeper Relationship Specialty Start Date End Date Services, [facility] Physician [address] [facility] [address] [place], [place] [phone] PCP - General 05/22/21 Prince Tobar MD [address] [place] [address] Cardiovascular Disease 03/26/22 Prince Tobar MD [address] [place] [address] Assigned Heart and Vascular Provider 05/30/22 documented as of this encounter
--- OUTSIDE RECORDS SUMMARY | 2024-03-05 11:52 | XMS_ITS | Clinical Summary ---
Author Organization [email or web address] [facility] Address [place], [place] [address] Care Team Providers Care [facility] [facility] Caretaker Name Role Phone Alan Lopez MD Unavailable [phone] Nishant Watson MD Unavailable Pcp, No Primary [...] type 2 diabetes mellitus (HC),Chronic edema JOBST #[id number] LRG FULL CALF KNEE BLACK 20-30 COMPRESSION [...] mg extended release tablet 24 HourIndications:CAD in kake artery Take 1 tablet by mouth once [...] call MD 0 04/01/2020 Active Insulin Safety Shafer, Disp, (NOVOFINE AUTOCOVER) 30 gauge x /3Indications:Cecelia [...] at 10 am and no showed. RN Claim Agent, Juanita Yoo, notified and she will attempt [...] No, referral made to Advance Care Plan Microsoft Net Developer. Patient has identified Specific Treatment Preferences: No Sophia Méndez RN .................... 07/06/2011 2:30 PM] Specific limits to treatment preferences NOT identified: ASSUME FULL TREATMENT. Assessment & Plan (05/25/2012 12:51 PM CASING SOAKER): Advance Care Planning: Disease-specific Session Leonid Leahy is a [facility] patient. His PCP is Leandra Limon at [facility]. Advance care planning discussions were completed with Leonid. He identified his sister, Brittany Suggs, as his healthcare agent. Brittany was not present for ACP session. Understanding of Illness and Disease Panther: Leonid identifies his medical condition as what [...] to live well: Daily visit to local [place] for a pop and to visit and catch up in the news with locals. Leonid obed with serious challenges in his life: Support of his sister, only a phone call away. Helps manage [facility]. Leonid identifies the following fears and [...] and primary care provider. Hard Choices for [place] People booklet was sent to Leonid and his health care agent for review. Leonid requested all information be mailed to his sister and process description writer to place call to sister to explain process. Leonid identified the following concerns during his advance care planning session: needing assistance at home to ensure he is managing his medications and treatments to keep going as is and stabilizing. Is followed by [facility] for needed services. Questions identified for his primary care provider: none Documents addressed during this advance care planning session: Health Care Directive completed and scanned into medical record. Statement of Treatment Preferences for advanced illness completed and scanned into the medical record. Recommendations/Plan: Leonid to review Advance Care Plan with Leonid's healthcare agent. Ent Nurse will be contacting Leonid's [facility] to explain services rendered, Leonid would benefit from: Home Care and/or Hospice when / if appropriate. [facility] services involved, [facility] supports coordination of medical asistance. [...] 2:27 PM Sophia Méndez RN RN [facility] - [facility] [phone] Vitamin D deficiency 01/06/2011 011 Neuropathy 09/25/2010 [...] 176.9 kg (390 lb) 07/14/2022 6:10 PM CASING SOAKER Height 167.6 cm (5' 6) 07/14/2022 6:10 PM CASING SOAKER Body Mass Index 62.95 07/14/2022 6:10 PM CASING SOAKER Plan of Treatment Health Maintenance Due Date [...] Kay García Medical Devices Implanted Type Area Wire Fence Erector Device Identifier Shelf Expiration Date Model / Serial / Lot Iol Pondera +20 Tecnis Zcb00 - [id number] Implanted:Qty: 1 on 07/15/2022 by Tanner Fuentes MD at [facility] Left: Eye [employer] 06/24/2025 ZCB00 20.0 / [id number] / Iol Pondera +20 Tecnis Zcb00 - [id number] Implanted:Qty: 1 on 08/19/2022 by Tanner Fuentes MD at [facility] Right: Eye [employer] 06/24/2025 ZCB00 20.0 / [id number] / Procedures Procedure Name Priority Date/Time Associated Diagnosis Comments LIPID PANEL Routine 03/13/2019 2:31 PM CDT Essential hypertriglyceridemia from Last 3 Months or Most Recently Relevant to Health Maintenance Results * (ABNORMAL) LIPID PANEL (03/13/2019 2:31 PM CDT) [facility] CHOLESTEROL,TOTAL 193 100 - 199 mg/dL 03/13/2019 9:25 PM CDT [facility] TRIGLYCERIDES 715(H) <150 mg/dL 03/13/2019 9:25 PM CDT [facility] HDL CHOLESTEROL 29(L) >40 mg/dL 9 9:25 PM CDT [facility] NON-HDL CHOLESTEROL 164(H) <145 mg/dl 03/13/2019 9:25 PM CDT [facility] CHOL/HDL RATIO 6.66(H) <4.50 03/13/2019 9:25 PM CDT [facility] LDL CHOLESTEROL 9 9:25 PM CDT [facility] Comment:Invalid LDL when Tri g >400. PROVIDER ORDERED STATUS RANDOM 03/13/2019 9:25 PM CDT [facility] Blood BLOOD SPECIMEN / Unknown Venipuncture / Unknown 03/13/2019 2:31 PM CDT 03/13/2019 2:31 PM CDT Suellen Sosa MD CHEMISTRY [facility] [address] [place] [address], from Last 3 Months or Most Recently Relevant to Health Maintenance Advance Directives Documents on File Type Date Recorded Patient Packaging Materials Inspector Eduardo smiley POL 09/26/2014 3:45 PM AH [...] 9:30 PM 03/19/2009 6:17 PM Care Teams [employer] Caretaker Relationship Specialty Start Date End Date Pcp, No . PCP - General 07/15/22 Alan Lopez MD Internal Medicine Internal Medicine 11/20/10 Nishant Watson MD [address] [place] [address] Endocrinology 08/15/13
--- OUTSIDE RECORDS SUMMARY | 2024-03-05 11:52 | XMS_ITS | Clinical Summary ---
Author Organization [facility] Address [address] [place] [address] Care Team Providers Care Director Of Flight Operations Name Role Phone Services, [facility] Physician Primary Care Provi sadia Prince Tobar MD Unavailable Prince Tobar MD Unavailable Matilde Pérez PA-C Unavailable [phone] Allergies Active Allergy Reactions Criticality Noted Date [...] daily Active cholecalciferol (VITAMIN D3) 1250 mcg (85014 units) capsule Take 1,250 mcg by mouth every 7 days on Wednesdays. Active venlafaxine (EFFEXOR-XR) 75 MG 24 hr capsule Take 225 mg by mouth daily Active hydrALAZINE (APRESOLINE) 50 MG tablet Take 50 mg by mouth 4 times daily Active polyethylene glycol (MIRALAX) 17 GM/Dose powder Take 17 g by mouth daily Active nystatin (MYCOSTATIN) 835357 UNIT/GM external powder Apply topically 2 times [...] CDT - 12/29/2023 12:59 AM CDT Emergency [facility] Emergency Dept [address] [place] [address] Agustin Cesar MD Anal fissure; External hemorrhoids Discharge Disposition: Home or Self Care 12/28/2023 Travel from Last 3 Months Immunizations Name Administration Dates Next Due COVID-19 MONOVALENT 12+ (Pfizer) 06/25/2020,05/17 [id number] Novel Flu 05/07/2009 Hepatitis B, Adult 02/16/2014,10/12/2013, [...] Choose 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 to 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 Vital Signs Vital Sign Reading [...] st Contact Info) Description 03/08/2024 PRE VISIT [facility] [address] [place] [address] Matilde Pérez PA-C [address] [place] [address] Previsit 03/08/2024 12:00 PM CDT Office Visit [facility] [address] [place] [address] Reinaldo Beltran PA-C [facility] [address] [place] [phone] Matilde Pérez PA-C [address] [place] [address] Health Maintenance Due Date Last Done Comments [...] without heart failure Atherosclerotic heart disease of [place] coronary artery without angina pectoris Body mass index (BMI) 60.0-69.9, adult (H) Chronic kidney disease, unspecified from Last 3 Months or Most Recently Relevant to Health Maintenance Results * (ABNORMAL) CBC with platelets and differential (12/28/2023 6:41 PM CDT) Pathologist [facility] WBC Count 5.9 4.0 - 11.0 10e3/uL [...] MD LAB - BLOOD ORD ERABLES LABORATORY [facility] Lab [address] Lab (1st floor, no room number) [place] [address] * Adult Type and Screen (12/28/2023 6:41 PM CDT) ABO/RH(D) A POS 12/28/2023 6:28 PM CDT [facility]LOOD B[facility] Antibody Screen Negative Negative 12/28/2023 6:28 PM CDT [facility] BLOOD B[facility] SPECIMEN EXPIRATION DATE [id number] 12/28/2023 6:28 PM CDT [facility] B[facility] Blood STRUCTURE OF RIGHT UPPER LIMB / Unknown Venipuncture / Unknown 12/28/2023 6:41 PM CDT 12/28/2023 6:46 PM CDT Agustin Cesar MD LAB - BLOOD BAN K TEST ORDER Performing Organization Address [facility]/ZIP Co de Phone Number BLOOD BANK [address] [place] [address] * INR (12/28/2023 6:41 PM CDT) INR 1.01 0.85 - 1.15 12/28/2023 7:00 PM CDT [facility] Blood STRUCTURE OF RIGHT UPPER LIMB / Unknown Venipuncture / Unknown 12/28/2023 6:41 PM CDT 12/28/2023 6:46 PM CDT Agustin Cesar MD LAB - BLOOD ORD ERABLES [facility]AT[facility] [address] Lab (1st floor, no room number) [place] [phone] * Partial thromboplastin time (12/28/2023 6:41 PM CDT) aPTT 28 22 - 38 Seconds 12/28/2023 7:00 PM CDT LABORATORY Blood STRUCTURE OF RIGHT UPPER LIMB / Unknown Venipuncture / Unknown 12/28/2023 6:41 PM CDT 12/28/2023 6:46 PM CDT Agustin Cesar MD LAB - BLOOD ORD ERABLES LABORATORY [facility] [address] Lab (1st floor, no room number) [place] [phone] * (ABNORMAL) [...] MD LAB - BLOOD ORD ERABLES LABORATORY [facility] [address] [facility] Lab (1st floor, no room number) [place] [address], [facility] * (ABNORMAL) Hemoglobin A1c (10/15/2023 3:13 PM CDT) Hemoglobin A1C 10.8(H) <5.7 % 10/15/2023 4:57 PM CDT [facility] Comment: Normal <5.7% Prediabetes 5.7-6.4% ?? Diabetes 6.5% or higher Note: Adopted from ADA consensus guidelines. Blood BLOOD SPECIMEN / Unknown Client Draw / Unknown 10/15/2023 3:13 PM CDT 10/15/2023 4:25 PM CDT [facility] LAB - BLOOD ORDERABL ES LABORATORY [facility] [address] Lab (1st floor, no room number) [place] [address], [facility] from Last 3 Months or Most Recently Relevant to Health Maintenance Advance Directives For more information, please contact: [phone] Documents on File Type Date Recorded Patient Printed Circuit Layout Taper Expl anation Advance Directives and Living Will [...] yissel nt/ legal decision maker Care Teams Director Of Flight Operations Relationship Specialty Start Date End Date Services, [employer] Physician [address] [place] [address], [address] [address] PCP - General 05/22/21 Prince Tobar MD [address] [place] [address] [id number] Cardiovascular Disease 03/26/22 Prince Tobar MD [address] [place] [address] [phone] Assigned Heart and Vascular Provider 05/30/22 Matilde Pérez PA-C [address] [place] [id number] Physician Wash Tub Machine Operator Physician Wash Tub Machine Operator - Surgical 12/30/23
--- OUTSIDE RECORDS SUMMARY | 2024-03-05 11:52 | XMS_ITS | Clinical Summary ---
Author Organization [facility] Address [address] [place] [address] Phone Care Team Providers Care Operator Automated Process Name Role Phone Mellisa Shirley PA-C Primary Care Provider [phone] Allergies Active Allergy Reactions Criticality Noted Date [...] 2 Active cholecalciferol (VITAMIN D-3) 1.25 MG (22347 UT) capsule Take 1,250 mcg by mouth [...] topic Insurance MEDICAID [place] MEDICARE Care Teams Operator Automated Process Relationship Specialty Start Date End Date Mellisa Shirley PA-C PCP - General Physician Corporate General Manager 08/31/22
[2024-03-05 11:56] LABS: Troponin, Point-of-Care* 0.01 ng/ml (0.01-0.04)
[2024-03-05 12:05] LABS: Slide Review Reflex No
[2024-03-05 12:10] LABS: Albumin* 4.3 g/dL (3.3-5.0); Chloride* 89 mmol/L (96-114); Sodium* 130 mmol/L (135-149)
[2024-03-05 12:11] LABS: Appearance Urine Clear (Clear); Bilirubin Urine Negative (Negative); Blood Urine Negative (Negative); Color Urine Yellow (Yellow); Glucose Urine 2+ (Negative); Ketones Urine 2+ (Negative); Leukocyte Esterase Urine Negative (Negative); Nitrite Urine Negative (Negative); Protein Urine Negative (Negative); Urobilinogen Urine 0.2 (0.2-1.0)
[2024-03-05 12:12] LABS: Creatinine* 1.3 mg/dL (0.5-1.5); Estimated Glomerular Filt Rate 61 ml/min
[2024-03-05 12:13] LABS: Alanine Aminotransferase* 26 U/L (4-50); Alkaline Phosphatase* 130 U/L (40-150); Anion Gap 18 mEq/L (7-15); Aspartate Amino Transferase* 24 U/L (12-35); Bilirubin Total* 0.7 mg/dL (0.1-1.5); Blood Urea Nitrogen* 31 mg/dL (7-30); Calcium* 8.8 mg/dL (8.4-10.6); Carbon Dioxide* 23 mmol/L (20-32); Lipase* 35 U/L (23-300); Total Protein* 7.4 g/dL (6.0-8.3)
[2024-03-05 12:14] LABS: Magnesium* 2.3 mg/dL (1.5-2.6)
[2024-03-05 12:16] LABS: Glucose* 438 mg/dL (60-115)
[2024-03-05 12:20] LABS: RBC Urine 0-2 (0-2); WBC Urine 0-2 (0-5)
[2024-03-05 12:23] LABS: Glucose, Point-of-Care* 421 mg/dl (60-115)
[2024-03-05 12:44] LABS: Lab Add On Test New Spec Needed
[2024-03-05 12:47] LABS: HCO3 VBG 23 mmol/L (21-28); PCO2 VBG 34 mmHG (40-50); pH VBG 7.436 (7.32-7.43)
[2024-03-05] MEDS: INSULIN REGULAR, HUMAN 100 UNIT/ML VIAL 10 UNIT IVP (12:59)
[2024-03-05] MEDS: 0.9 % SODIUM CHLORIDE 500 ML 500 ML 1000 ML IV ×2 (13:02→14:16)
[2024-03-05 14:45] LABS: Glucose, Point-of-Care* 372 mg/dl (60-115)
[2024-03-05 15:01] LABS: Troponin, Point-of-Care* 0.01 ng/ml (0.01-0.04)
== END 2024-03-05 17:10 | disposition home or self-care (01) ==
PROVIDERS: Emergency Provider Student in an Organized Health Care Education/Training Program
DX: E11.65 Type 2 diabetes mellitus with hyperglycemia (principal); R07.89 Other chest pain
CPT/HCPCS: 36415; 74177; 80053; 81001; 82803; 82947; 82962; 83690; 83735; 84484; 85025; 93005; 96360; 99284; 99285; J1815; J7030; Q9967

== ENCOUNTER 2024-03-05 16:44 | Outpatient (CLI) | payer MEDICARE, MEDICAID, SELFPAY ==
--- OUTSIDE RECORDS SUMMARY | 2024-03-11 13:44 | XMS_ITS | Clinical Summary ---
Author Organization [place] Address [address] [facility] [place] [address] Care Team Providers Care Preschool Lead Teacher Name Role Phone Services, [facility] Physician Primary Care Provi sadia Prince Tobar MD Unavailable Prince Tobar MD Unavailable Matilde Pérez PA-C Unavailable [phone] Allergies Active Allergy Reactions Criticality Noted Date [...] daily Active cholecalciferol (VITAMIN D3) 1250 mcg (82054 units) capsule Take 1,250 mcg by mouth every 7 days on Wednesdays. Active venlafaxine (EFFEXOR-XR) 75 MG 24 hr capsule Take 225 mg by mouth daily Active hydrALAZINE (APRESOLINE) 50 MG tablet Take 50 mg by mouth 4 times daily Active polyethylene glycol (MIRALAX) 17 GM/Dose powder Take 17 g by mouth daily Active nystatin (MYCOSTATIN) 290778 UNIT/GM external powder Apply topically 2 times [...] Department Care Team Description 03/08/2024 PRE VISIT [facility] [address] [address] Matilde Pérez PA-C Previsit 03/07/2024 5:35 PM CDT - 03/08/2024 8:21 PM CDT Emergency [facility] Emergency Dept [address] [place] [address] Sandra Monroy MD [place], Samuel, MD McDonald, Lindsey E, Hyperglycemia (Primary Dx); Urinary tract infection with hematuria, site unspecified Discharge Disposition: Home or Self Care 03/07/2024 Travel 12/28/2023 6:08 PM CDT - 12/29/2023 12:59 AM CDT Emergency [facility] Emergency Dept [address] [place] [address] Agustin Cesar MD Anal fissure; External hemorrhoids Discharge Disposition: Home or Self Care 12/28/2023 Travel from Last 3 Months Immunizations Name Administration Dates Next Due COVID-19 MONOVALENT 12+ (Pfizer) 06/25/2020,05/17 [id number] Novel Flu 05/07/2009 Hepatitis B, Adult 02/16/2014,10/12/2013, [...] on file 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 Gender Identity Not on file Sexual Orientation Choose not to disclose 2021 8:14 AM ASSEMBLER WET WASH Last Filed Vital Signs Vital Sign Reading [...] without heart failure Atherosclerotic heart disease of [place] coronary artery without angina pectoris Body mass [...] POCT Final Re sult RH LABORATORY POC [facility] [address] [facility], no room number) [place] [address] * (ABNORMAL) UA with Microscopic (03/08/2024 8:29 AM CDT) Color Urine Dark Brown(A) Colorless, Straw, Light Yellow, Yellow 03/08/2024 8:53 AM CDT LABORATORY Appearance Urine Cloudy(A) Clear 03/08/20 8:53 AM CDT LABORATORY Glucose Urine >=1000(A) Negative mg/dL 03/08/2024 8:53 AM CDT LABORATORY Bilirubin Urine Negative Negative 8:53 AM CDT LABORATORY Ketones Urine Negative Negative mg/dL 03/08/2024 8:53 AM CDT LABORATORY Specific [place] Urine 1.023 1.003 - 1.035 03/08/2024 8:53 [...] - URINE ORDERABLES Fin al Result LABORATORY [facility] [address] Lab (1st floor, no room number) [place] [address], [facility] * (ABNORMAL) Basic metabolic panel [...] BLOOD ORDERABLES Fin al Result RH LABORATORY [facility] [address] [facility] Lab (1st floor, no room number) [place] [address], [facility] * (ABNORMAL) Blood gas venous [...] ORDERABLES Fin al Result Performing Organization Address City/[facility]/ZIP Co de Phone Number [facility] [address] [employer] Lab (1st floor, no room number) [address] * Extra Purple Top Tube (03/07/2024 7:02 PM CDT) Hold Specimen [facility] 03/07/2024 8:07 PM CDT RH LABORATORY Blood STRUCTURE OF RIGHT UPPER LIMB / Unknown Venipuncture / Unknown 03/07/2024 7:02 PM CDT 03/07/2024 7:07 PM CDT Sandra Monroy MD LAB - BLOOD ORDERABLES Fin al Result Performing Organization Address [facility] Co de Phone Number [facility] Acute Care Lab [address] Lab (1st floor, no room number) [address] * Extra Red Top Tube (03/07/2024 7:02 PM CDT) Hold Specimen JI 03/07/2024 8:07 PM CDT RH LABORATORY Blood STRUCTURE OF RIGHT UPPER LIMB / Unknown Venipuncture / Unknown 03/07/2024 7:02 PM CDT 03/07/2024 7:07 PM CDT Sandra Monroy MD LAB - BLOOD ORDERABLES Fin al Result Performing Organization Address City/[facility] Co de Phone Number LABORATORY [facility] Lab [address] Lab (1st floor, no room number) [place] [phone] [place] [address] * Extra Blue Top Tube (03/07/2024 7:02 PM CDT) Hold Specimen JIC 03/07/2024 8:07 PM CDT LABORATORY Blood STRUCTURE OF RIGHT UPPER LIMB / Unknown Venipuncture / Unknown 03/07/2024 7:02 PM CDT 03/07/2024 7:07 PM CDT us Sandra Monroy MD LAB - BLOOD ORDERABLES Hemant al Result Performing Organization Address [facility]/ZIP Co de Phone Number [facility] Lab [address] Lab (1st floor, no room number) [place] [phone] * (ABNORMAL) Ketone Beta-Hydroxybutyrate Quantitative (03/07/2024 7:02 PM CDT) Pathologist [facility] Ketone (Beta-Hydroxybuty rate) Quantitative 0.44(H) <=0.30 mmol/L 03/07/2024 8:09 PM CDT LABORATORY Blood STRUCTURE OF RIGHT UPPER LIMB / Unknown Venipuncture / Unknown 03/07/2024 7:02 PM CDT 03/07/2024 7:07 PM CDT us Sandra Monroy MD LAB - BLOOD ORDERABLES Fin al Result Performing Organization Address City/[facility]/ZIP Co de Phone Number LABORATORY [facility] Lab [address] Lab (1st floor, no room number) [place] [phone], [facility] * (ABNORMAL) CBC with [...] - BLOOD ORDERABLES Final Result RH LABORATORY [facility] [address] Lab (1st floor, no room number) [place] [address] * Adult Type and Screen (12/28/2023 6:41 PM CDT) ABO/RH(D) A POS 12/28/2023 6:28 PM CDT RH BLOOD BANK Antibody Screen Negative Negative 12/28/2023 6:28 PM CDT RH BLOOD BANK SPECIMEN EXPIRATION DATE [id number] 12/28/2023 6:28 PM CDT RH BLOOD BANK Blood STRUCTURE OF RIGHT UPPER LIMB / Unknown Venipuncture / Unknown 12/28/2023 6:41 PM CDT 12/28/2023 6:46 PM CDT Agustin Cesar MD LAB - BLOOD BANK TEST O RDER Final Result RH BLOOD BANK [address] [place] [address] * INR (12/28/2023 6:41 PM CDT) INR 1.01 0.85 - 1.15 12/28/2023 7:00 PM CDT RH LABORATORY Blood STRUCTURE OF RIGHT UPPER LIMB / Unknown Venipuncture / Unknown 12/28/2023 6:41 PM CDT 12/28/2023 6:46 PM CDT Agustin Cesar MD LAB - BLOOD ORDERABLES Final Result Performing Organization Address City/[facility]/ZIP Co de Phone Number LABORATORY [facility] Lab [address] Lab (1st floor, no room number) [place] [address] * Partial thromboplastin time (12/28/2023 6:41 PM CDT) aPTT 28 22 - 38 Seconds 12/28/2023 7:00 PM CDT LABORATORY Blood STRUCTURE OF RIGHT UPPER LIMB / Unknown Venipuncture / Unknown 12/28/2023 6:41 PM CDT 12/28/2023 6:46 PM CDT Agustin Cesar MD LAB - BLOOD ORDERABLES Final Result Performing Organization Address [facility]/ZIP Co de Phone Number LABORATORY [facility] [address] Lab (1st floor, no room number) [place] [address] * (ABNORMAL) Comprehensive metabolic panel [...] LAB - BLOOD ORDERABLES Final Result LABORATORY [facility] Lab [address] [facility] Lab (1st floor, no room number) [place] [address] * (ABNORMAL) Hemoglobin A1c (10/15/2023 3:13 PM CDT) Hemoglobin A1C 10.8(H) <5.7 % 10/15/2023 4:57 PM CDT RH LABORATORY Comment: Normal <5.7% Prediabetes 5.7-6.4% ?? Diabetes 6.5% or higher Note: Adopted from ADA consensus guidelines. Blood BLOOD SPECIMEN / Unknown Client Draw / Unknown 10/15/2023 3:13 PM CDT 10/15/2023 4:25 PM CDT Harrison Munson NP LAB - BLOOD ORDERABLES Final Result [facility] Acute Care Lab [address] Lab (1st floor, no room number) [place] [address], [facility] from Last 3 Months or Most Recently Relevant to Health Maintenance Insurance [place]ICARE [place]ID [place] Advance Directives For more information, please contact: [phone] Documents on File Type Date Recorded Patient Architectural Examiner Expl anation Advance Directives and Living [...] yissel nt/ legal decision maker Care Teams Preschool Lead Teacher Relationship Specialty Start Date End Date Services, [facility] Physician [address] [place] [address] PCP - General 05/22/21 Prince Tobar MD [address] [place] [address] [phone] Cardiovascular Disease 03/26/22 Prince Tobar MD [address] [place] [address] [phone] Assigned Heart and Vascular Provider 05/30/22 Matilde Pérez PA-C [address] [place] [address] Physician Spinning Frame Fixer Physician Spinning Frame Fixer - Surgical 12/30/23
--- OUTSIDE RECORDS SUMMARY | 2024-03-11 13:44 | XMS_ITS | Referral Summary ---
Author Organization [facility] Address [address] [facility] [place] [address] Care Team Providers Care Assistant In Nursing Name Role Phone Services, [facility] Physician Primary Care Provi sadia Prince Tobar MD Unavailable Prince Tobar MD Unavailable Matilde Pérez PA-C Unavailable Encounters Date Type Department Care Team Description 03/08/2024 PRE VISIT [facility] [address] 4th [place] [address] Matilde Pérez PA-C Previsit 03/07/2024 5:35 PM CDT - 03/08/2024 8:21 PM CDT [facility] Emergency Dept [address] [place] [address] Sandra Monroy MD [place], Samuel, MD McDonald, Lindsey E, DO Hyperglycemia (Primary Dx); Urinary tract infection with hematuria, site unspecified Discharge Disposition: Home or Self Care 03/07/2024 Travel 12/28/2023 6:08 PM CDT - 12/29/2023 12:59 AM CDT [facility] Emergency Dept [address] [place] [address] Agustin Cesar MD Anal fissure; External hemorrhoids [...] daily Active cholecalciferol (VITAMIN D3) 1250 mcg (00101 units) capsule Take 1,250 mcg by mouth every 7 days on Wednesdays. 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 Gender Identity Not on file Sexual Orientation Choose not to disclose 2021 8:14 AM WINDERMAN Last Filed Vital Signs Vital Sign Reading [...] without heart failure Atherosclerotic heart disease of [place] coronary artery without angina pectoris Body mass [...] - BEAKER POCT Final Re sult LABORATORY [facility] Care Lab [address] [facility] Lab (1st floor, no room number) [place] [address] * (ABNORMAL) UA with Microscopic (03/08/2024 8:29 AM CDT) Color Urine Dark Brown(A) Colorless, Straw, Light Yellow, Yellow 03/08/2024 8:53 AM CDT LABORATORY Appearance Urine Cloudy(A) Clear 03/08/20 8:53 AM CDT LABORATORY Glucose Urine >=1000(A) Negative mg/dL 03/08/2024 8:53 AM CDT LABORATORY Bilirubin Urine Negative Negative 8:53 AM CDT LABORATORY Ketones Urine Negative Negative mg/dL 03/08/2024 8:53 AM CDT LABORATORY Specific [place] Urine 1.023 1.003 - 1.035 03/08/2024 8:53 [...] - URINE ORDERABLES Fin al Result LABORATORY [facility] Acute Care Lab [address] Lab (1st floor, no room number) [place] [address] * (ABNORMAL) Basic metabolic panel (BMP) [...] BLOOD ORDERABLES Fin al Result RH LABORATORY [facility] Acute Care Lab [address] [facility] Lab (1st floor, no room number) [place] [address], [facility] * (ABNORMAL) Blood gas [...] ORDERABLES Fin al Result Performing Organization Address City/[facility]/ZIP Co de Phone Number [facility] [address] [employer] Lab (1st floor, no room number) [place] [address], [place] * Extra Purple Top Tube (03/07/2024 7:02 PM CDT) Hold Specimen [facility] 03/07/2024 8:07 PM CDT RH LABORATORY Blood STRUCTURE OF RIGHT UPPER LIMB / Unknown Venipuncture / Unknown 03/07/2024 7:02 PM CDT 03/07/2024 7:07 PM CDT us Sandra Monroy MD LAB - BLOOD ORDERABLES Fin al Result [facility] [address] Lab (1st floor, no room number) [place] [address] * Extra Red Top Tube (03/07/2024 7:02 PM CDT) Hold Specimen [facility] 03/07/2024 8:07 PM CDT RH LABORATORY Blood STRUCTURE OF RIGHT UPPER LIMB / Unknown Venipuncture / Unknown 03/07/2024 7:02 PM CDT 03/07/2024 7:07 PM CDT Sandra Monroy MD LAB - BLOOD ORDERABLES Fin al Result [facility] [address] Lab (1st floor, no room number) [place] [address] * Extra Blue Top Tube (03/07/2024 7:02 PM CDT) Hold Specimen [facility] 03/07/2024 8:07 PM CDT LABORATORY Blood STRUCTURE OF RIGHT UPPER LIMB / Unknown Venipuncture / Unknown 03/07/2024 7:02 PM CDT 03/07/2024 7:07 PM CDT Sandra Monroy MD LAB - BLOOD ORDERABLES Fin al Result Performing Organization Address [facility] Co de Phone Number [facility] [address] Lab (1st floor, no room number) [place] [address], [facility] * (ABNORMAL) Ketone Beta-Hydroxybutyrate Quantitative (03/07/2024 7:02 PM CDT) [facility] Ketone (Beta-Hydroxybuty rate) Quantitative 0.44(H) <=0.30 mmol/L 03/07/2024 8:09 PM CDT LABORATORY Blood STRUCTURE OF RIGHT UPPER LIMB / Unknown Venipuncture / Unknown 03/07/2024 7:02 PM CDT 03/07/2024 7:07 PM CDT Sandra Monroy MD LAB - BLOOD ORDERABLES Fin al Result [facility] [address] Lab (1st floor, no room number) [place] [address], [facility] * (ABNORMAL) CBC with platelets and differential (12/28/2023 6:41 PM CDT) [facility] WBC Count 5.9 4.0 - 11.0 10e3/uL [...] - BLOOD ORDERABLES Final Result RH LABORATORY [facility] Acute Care Lab [address] Lab (1st floor, no room number) [place] [address] * Adult Type and Screen (12/28/2023 6:41 PM CDT) ABO/RH(D) A POS 12/28/2023 6:28 PM CDT RH BLOOD BANK Antibody Screen Negative Negative 12/28/2023 6:28 PM CDT RH BLOOD BANK SPECIMEN EXPIRATION DATE [id number] 12/28/2023 6:28 PM CDT RH BLOOD BANK Blood STRUCTURE OF RIGHT UPPER LIMB / Unknown Venipuncture / Unknown 12/28/2023 6:41 PM CDT 12/28/2023 6:46 PM CDT Agustin Cesar MD LAB - BLOOD BANK TEST O RDER Final Result RH BLOOD BANK [address] [place] [address] * INR (12/28/2023 6:41 PM CDT) INR 1.01 0.85 - 1.15 12/28/2023 7:00 PM CDT RH LABORATORY Blood STRUCTURE OF RIGHT UPPER LIMB / Unknown Venipuncture / Unknown 12/28/2023 6:41 PM CDT 12/28/2023 6:46 PM CDT Agustin Cesar MD LAB - BLOOD ORDERABLES Final Result LABORATORY [facility] Care Lab [address] Lab (1st floor, no room number) [place] [address] * Partial thromboplastin time (12/28/2023 6:41 PM CDT) aPTT 28 22 - 38 Seconds 12/28/2023 7:00 PM CDT LABORATORY Blood STRUCTURE OF RIGHT UPPER LIMB / Unknown Venipuncture / Unknown 12/28/2023 6:41 PM CDT 12/28/2023 6:46 PM CDT Agustin Cesar MD LAB - BLOOD ORDERABLES Final Result Performing Organization Address City/[facility]/ZIP Co de Phone Number LABORATORY [facility] Acute Care Lab [address] Lab (1st floor, no room number) [place] [address], [facility] * (ABNORMAL) Comprehensive metabolic [...] - BLOOD ORDERABLES Final Result RH LABORATORY [facility] Acute Care Lab [address] Lab (1st floor, no room number) [place] [address], [facility] * (ABNORMAL) [...] KIMBERLY LAB - BLOOD ORDERABLES Final Result [facility] Acute Care Lab [address] Lab (1st floor, no room number) [place] [address], [facility] from Last 3 Months or Most Recently Relevant to Health Maintenance Insurance MEDICARE [place] Advance Directives For more information, please contact: [phone] Documents on File Type Date Recorded Patient Boat Wrapper Expl anation Advance Directives and Living Will [...] patie nt/ legal decision maker Care Teams Assistant In Nursing Relationship Specialty Start Date End Date Services, [facility] Physician [address] [place] [address] PCP - General 05/22/21 Prince Tobar MD [address] [place] [address] Cardiovascular Disease 03/26/22 Prince Tobar MD [address] [place], [place] [address] Assigned Heart and Vascular Provider 05/30/22 Matilde Pérze PA-C [address] [place] [phone] Physician Stick Roller Physician Stick Roller - Surgical 12/30/23
--- OUTSIDE RECORDS SUMMARY | 2024-03-11 13:44 | XMS_ITS | Clinical Summary ---
Author Organization [facility] Address [address] [place] [address] Phone Care Team Providers Care Scuba Diving Instructor Name Role Phone Mellisa Shirley PA-C Primary Care Provider [phone] Allergies Active Allergy Reactions Criticality Noted Date [...] 2 Active cholecalciferol (VITAMIN D-3) 1.25 MG (97095 UT) capsule Take 1,250 mcg by mouth [...] topic Insurance MEDICAID [place] MEDICARE Care Teams Scuba Diving Instructor Relationship Specialty Start Date End Date Mellisa Shirley PA-C PCP - General Physician Boat Loader 08/31/22
--- OUTSIDE RECORDS SUMMARY | 2024-03-11 13:44 | XMS_ITS | Encounter Summary ---
Author Organization [facility] Address [address] [facility] [place] [address] Care Team Providers Care Steward/Stewardess Bath Name Role Phone Services, [facility] Physician Primary Care Provi sadia Prince Tobar MD Unavailable Prince Tobar MD Unavailable Matilde Pérez PA-C Unavailable [phone] Reason for Visit * Reason Onset Date Comments Previsit 03/08/2024 Encounter Details Date Type Department Care Team (Late st Contact Info) Description 03/08/2024 PRE VISIT [facility] [address] [place] [address] Matilde Pérez PA-C [address] [place] [address] Previsit Social History Tobacco Use Types [...] on file 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 Cesar [...] on filedocumented in this encounter Care Teams Steward/Stewardess Bath Relationship Specialty Start Date End Date Services, [facility] Physician [address] [place] [address] PCP - General 05/22/21 Prince Tobar MD [address] [place] [address] Cardiovascular Disease 03/26/22 Prince Tobar MD [address] [place] [address] Assigned Heart and Vascular Provider 05/30/22 Matilde Pérez PA-C [address] [place] [address] [phone] Physician Hide Trimmer Physician Hide Trimmer - Surgical 12/30/23 documented as of this encounter
--- OUTSIDE RECORDS SUMMARY | 2024-03-11 13:44 | XMS_ITS | Encounter Summary ---
Author Organization [place] Address [address] [facility] [address] Care Team Providers Care Dairy Associate Name Role Phone Services, [facility] Physician Primary Care Provi sadia Prince Tobar MD Unavailable Prince Tobar MD Unavailable Matilde Pérez PA-C Unavailable Reason for Visit * Reason Comments Hyperglycemia Social Work Services Encounter Details Date Type Department Care Team (Late st Contact Info) Description 03/07/2024 5:35 PM CDT - 03/08/2024 8:[address] 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 * UTI (Urinary Tract Infection): Male (Jamaican) * Hyperglycemia: General Info (Jamaican) documented in this encounter Medications at Time [...] mouth daily cholecalciferol (VITAMIN D3) 1250 mcg (78442 units) capsule Take 1,250 mcg by mouth [...] 200 mg by mouth daily nystatin (MYCOSTATIN) 650729 UNIT/GM external powder Apply topically 2 times [...] this encounter Consult Notes * Teresa Alexander, [facility] - 03/08/2024 5:47 PM CDTAssociated Order(s): CARE MANAGEMENT / SOCIAL WORK IP CONSULT; CARE MANAGEMENT / SOCIAL WORK IP CONSULT Summary: Discharge Planning Care Management Medical Nursing Home Outpatient Consult Care management consulted by provider for nursing home assessment. CM spoke with provider to discuss nursing home case. Provider has confirmed patient is medically stable for discharge. Background information: Patient was brought into the ED via EMS because of blood sugars and the senior care didn't have any insulin or pens for insulin to give them. Care team recommended discharge disposition: Return to his senior care Resources needed for discharge: needs medications, insulin and pens Discharge plan secured to meet patient's needs? Yes Estimated timeline for discharge: less than 24 hours Barriers to discharge: Getting patient insulin Discussed above with provider & admission discharge rn. Next steps: Anticipate patient will discharge within the next 24 hours to senior care with medication support/resources for follow-up. Patient has an established discharge plan that can meet their needs as identified above. SW met with patient, all he wants to do is return to the senior care. AGATA spoke with patient guardian, Joycelyn reported that the senior care is having difficulty getting patient's insulin. She reports it is due to the senior care changing pharmacies. SW verified patient's MA number which is active. Several calls placed to senior care's pharmacy, [facility]. They wee not able to verified medications. Spoke with the RN at the senior care,Fany [phone]. She reports that she has been calling pharmacy for the insulin but has not received it. [facility] is a mail in pharmacy so senior care isn't sure when they will get the insulin. AGATA discussed with MD and charge nurse, plan was to see if the medications can be filled here. Once patient's insulin and pen can be verified. Patient will return to senior care via wheelchair. ACE Palacio Horseradish Maker Inpatient Care Coordination Supervisor Dumping Entry Level Financial Analyst [facility] [phone] ACE Haque documented in this encounter ED Notes * Chiki Rajan MD - 03/08/2024 8:21 PM CDT SW arranged home. Insulin per med rec filled here and Rx for home. Chiki Rajan MD 03/11/24 0023 * Lena Mathis RN - 03/08/2024 5:18 PM CDT Spoke with Fany, nurse distributor sales manager several times. She accepted report and [...] male with history of DM presenting from senior care. He reports facility ran out of insulin and is unable to fill prescriptions from pharmacy for more insulin. Patient boarded overnight. At time of signout, AGATA eval pending. Patient UA appears infected, will plan for keflex initiation as well. Boarding orders written. 2:25 PM Patient signed out to Dr. Rajan. AGATA assessed patient within the past hour and [...] - 03/07/2024 7:53 PM CDT Fany Nurse College Professor at the [facility] phone: [phone]. Dianne Electrician Station Assistant: [phone] Fany states pt receives Humulin 100u TID [...] hyperglycemia and social work issue. Patientreports his senior care staff checked his blood sugar to be high. He states he does not feel sick. No fever, headache, chest pain, or diarrhea. Per EMS, senior care facility informed them that insulin ran out [...] MG tablet cholecalciferol (VITAMIN D3) 1250 mcg (91932 units) capsule clotrimazole (LOTRIMIN) 1 % external [...] hr tablet nitroGLYcerin 0.2% ointment nystatin (MYCOSTATIN) 441379 UNIT/GM external powder pantoprazole (PROTONIX) 40 MG [...] None ED Course ED Course as of 03/08/24226Mar 07, 20241809 I obtained history and examined the patient as noted above. 1813 I left voicemail for patient's guardian. 1945 Nurse got report from , gets Humulin 100 units TID and Basaglar 30 units BID. Sandra [phone] 1948 I spoke with Andressa, pharmacist, regarding the patient. Wed Mar 08, 2024 0116 Tried to talk to about dispo planning 0125 I reassessed the patient and discussed plan. He agrees. Additional Documentation None Medical Decision Making / Diagnosis [facility] Diagnoses: None MIPS None MDM Leonid [...] deemed safe to go back to his senior care. It is also quite difficult to get a hold of the senior care staff. Therefore we will watch the patient overnight for case management and social work consultation to see if we can help facilitate medications for home andensure the patient has a safe discharge plan. Of note voicemail left for the patient's guardian as they did not answer the phone either. Disposition Care of the patient was transferred to my colleague Dr. David pending SW/CM consult. Diagnosis ICD-10-CM 1. Hyperglycemia R73.9 Discharge Medications New Prescriptions No medications on file Scribe Disclosure: Lisa Conte, am serving as a scribe at 6:03 PM on 03/07/2024 to document services personally performed by Sandra Monroy MD based on my observations and the provider's statements to me. Sandra Monroy MD 03/08/24 0229 * Felicita Mclain RN - 03/07/2024 5:01 PM CDT Patient THAD from senior care for concerns of hyperglycemia. Upon EMS arrival [...] Emergency Department Pharmacist Note: Prescriptions sent to [facility] pharmacy for Lantus and Humulin U-500 pens. [facility] pharmacy called and is unable to fill the Lantus as refill too soon. Attempted to call pt's [facility] but they are closed. So called Nurse College Professor, Fany, for the senior care #[phone]. She stated that [facility] was able to fill both the Basaglar and Humulin U-500 pens yesterday and today and both are being delivered tonight. She was told that the Humulin U-500 would be delivered between 5844-2605 and the Basaglar would be delivered after [...] U-500 is being delivered tonight. Spoke with [facility] Pharmacy, they only have one U-500 pen in stock and so will dispense the one pen. This will be enough to get patient by until the [facility] delivery is delivered to his senior care this evening after 1999. No further action required. Andressa Buitrago, PharmD, [facility] Emergency Medicine Pharmacist [phone] or Deven March 08, 2024 documented in [...] Glucose by meter (03/08/2024 6:50 PM CDT) [facility] GLUCOSE BY METER POCT 131(H) 70 - 99 mg/dL 03/08/2024 6:57 PM CDT LABORATORY POC Blood, Capillary BLOOD SPECIMEN / Unknown 03/08/2024 6:50 PM CDT 03/08/2024 6:57 PM CDT us Vera Lopez DO LAB - BEAKER POCT Final Re sult LABORATORY [facility] Care Lab [address] Lab (1st floor, no room number) [place] [phone] [place] [address] * (ABNORMAL) Glucose by meter (03/08/2024 4:21 PM CDT) GLUCOSE BY METER POCT 192(H) 70 - 99 mg/dL 03/08/2024 4:34 PM CDT LABORATORY POC Blood, Capillary BLOOD SPECIMEN / Unknown 03/08/2024 4:21 PM CDT 03/08/2024 4:34 PM CDT Vera Lopez DO LAB - BEAKER POCT Final Re sult Performing Organization Address [place]/[facility]/ZIP Co de Phone Number LABORATORY [facility] Care Lab [address] Lab (1st floor, no room number) [place] [phone] [place] [address] * (ABNORMAL) Glucose by meter (03/08/2024 12:20 PM CDT) GLUCOSE BY METER POCT 202(H) 70 - 99 mg/dL 03/08/2024 12:26 PM CDT LABORATORY POC Blood, Capillary BLOOD SPECIMEN / Unknown 03/08/2024 12:20 PM CDT 03/08/2024 12:26 PM CDT Vera Lopez DO LAB - BEAKER POCT Final Re sult LABORATORY [facility] Care Lab [address] Lab (1st floor, no room number) [place] [phone] * (ABNORMAL) UA with Microscopic (03/08/2024 8:29 AM CDT) Color Urine Dark Brown(A) Colorless, Straw, Light Yellow, Yellow 03/08/2024 8:53 AM CDT LABORATORY Appearance Urine Cloudy(A) Clear 03/08/20 8:53 AM CDT LABORATORY Glucose Urine >=1000(A) Negative mg/dL 03/08/2024 8:53 AM CDT LABORATORY Bilirubin Urine Negative Negative 8:53 AM CDT LABORATORY Ketones Urine Negative Negative mg/dL 03/08/2024 8:53 AM CDT LABORATORY Specific [place] Urine 1.023 1.003 - 1.035 03/08/2024 8:53 [...] - URINE ORDERABLES Fin al Result LABORATORY [facility] Acute Care Lab [address] Lab (1st floor, no room number) [place] [address], [facility] * (ABNORMAL) Glucose by meter (03/08/2024 8:07 AM CDT) GLUCOSE BY METER POCT 294(H) 70 - 99 mg/dL 03/08/2024 8:20 AM CDT RH LABORATORY POC Blood, venous BLOOD SPECIMEN / Unknown 03/08/2024 8:07 AM CDT 03/08/2024 8:20 AM CDT us Tex David MD LAB - BEAKER POCT Final Resu lt LABORATORY [facility] Care Lab [address] Lab (1st floor, no room number) [place] [address] * (ABNORMAL) Glucose by meter (03/08/2024 5:58 AM CDT) GLUCOSE BY METER POCT 346(H) 70 - 99 mg/dL 03/08/2024 6:05 AM CDT LABORATORY POC Blood, Capillary BLOOD SPECIMEN / Unknown 03/08/2024 5:58 AM CDT 03/08/2024 6:05 AM CDT us Tex David MD LAB - BEAKER POCT Final Resu lt Performing Organization Address [place]/[facility]/ZIP Co de Phone Number LABORATORY [facility] Lab [address] Lab (1st floor, no room number) [place] [address] * (ABNORMAL) Glucose by meter (03/08/2024 4:10 AM CDT) GLUCOSE BY METER POCT 413(H) 70 - 99 mg/dL 03/08/2024 4:17 AM CDT LABORATORY POC Blood, Capillary BLOOD SPECIMEN / Unknown 03/08/2024 4:10 AM CDT 03/08/2024 4:17 AM CDT us Tex David MD LAB - BEAKER POCT Final Resu lt LABORATORY [facility] Care Lab [address] Lab (1st floor, no room number) [place] [address], [facility] * (ABNORMAL) Glucose by meter (03/08/2024 2:54 AM CDT) GLUCOSE BY METER POCT 347(H) 70 - 99 mg/dL 03/08/2024 3:01 AM CDT LABORATORY POC Blood, Capillary BLOOD SPECIMEN / Unknown 03/08/2024 2:54 AM CDT 03/08/2024 3:01 AM CDT Tex David MD LAB - BEAKER POCT Final Resu lt LABORATORY [facility] Acute Care Lab [address] Lab (1st floor, no room number) [place] [address] * (ABNORMAL) Glucose by meter (03/08/2024 1:48 AM CDT) GLUCOSE BY METER POCT 401(H) 70 - 99 mg/dL 03/08/2024 2:31 AM CDT LABORATORY POC Blood, Capillary BLOOD SPECIMEN / Unknown 03/08/2024 1:48 AM CDT 03/08/2024 2:31 AM CDT Sandra Monroy MD LAB - BEAKER POCT Final Re sult LABORATORY [facility] Care Lab [address] Lab (1st floor, no room number) [place] [address] * (ABNORMAL) Basic metabolic panel (BMP) (03/07/2024 9:50 PM CDT) Sodium 133(L) 135 - 145 mmol/L 03/07/2024 10:25 PM CDT LABORATORY Potassium 4.4 3.4 - 5.3 mmol/L 03/07/2024 10:25 PM CDT LABORATORY Comment:Specimen slightly he molyzed. The reported potassium value may be falsely elevated. Analysis of a non-hemolyzed specimen (i.e. re-draw) may result in a lower potassium value. Chloride 90(L) 98 - 107 mmol/L 03/07/2024 10:25 PM CDT RH LABORATORY Carbon Dioxide (CO2) 28 22 - 29 mmol/L 03/07/2024 10:25 PM CDT RH LABORATORY Anion Gap 15 7 - 15 mmol/L 03/07/2024 10:25 PM CDT RH LABORATORY Urea Nitrogen 25.3(H) 8.0 - 23.0 [...] - 99 mg/dL 03/07/2024 10:25 PM CDT LABORATORY Blood BLOOD SPECIMEN / Unknown Venipuncture / Unknown 03/07/2024 9:50 PM CDT 03/07/2024 9:54 PM CDT us Sandra Monroy MD LAB - BLOOD ORDERABLES Fin al Result RH LABORATORY [facility] Acute Care Lab [address] Lab (1st floor, no room number) [place] [address], [facility] * (ABNORMAL) Blood gas venous (03/07/2024 8:06 PM CDT) pH Venous 7.42 7.32 - 7.43 03/07/2024 8:15 PM CDT LABORATORY pCO2 Venous 52(H) 40 - 50 mm Hg 03/07/2024 8:15 PM CDT LABORATORY pO2 Venous 32 25 - 47 [...] Monroy MD LAB - BLOOD ORDERABLES Hemant franz Result [facility] Acute Care Lab [address] Lab (1st floor, no room number) [place] [address], [facility] * (ABNORMAL) Ketone Beta-Hydroxybutyrate Quantitative (03/07/2024 7:02 PM CDT) Ketone (Beta-Hydroxybuty rate) Quantitative 0.44(H) <=0.30 mmol/L 03/07/2024 8:09 PM CDT RH LABORATORY Blood STRUCTURE OF RIGHT UPPER LIMB / Unknown Venipuncture / Unknown 03/07/2024 7:02 PM CDT 03/07/2024 7:07 PM CDT us Sandra Monroy MD LAB - BLOOD ORDERABLES Hemant franz Result [facility] Acute Care Lab [address] Lab (1st floor, no room number) [place] [address], [facility] * (ABNORMAL) Glucose by meter (03/07/2024 7:02 PM CDT) GLUCOSE BY METER POCT 388(H) 70 - 99 mg/dL 03/07/2024 7:09 PM CDT LABORATORY POC Blood, venous BLOOD SPECIMEN / Unknown 03/07/2024 7:02 PM CDT 03/07/2024 7:09 PM CDT us Sandra Monroy MD LAB - BEAKER POCT Final Re sult Performing Organization Address City/[facility]/ZIP Co de Phone Number LABORATORY [facility] Lab [address] Lab (1st floor, no room number) [place] [address], [facility] * Extra Purple Top Tube (03/07/2024 7:02 PM CDT) Hold Specimen [facility] 03/07/2024 8:07 PM CDT LABORATORY Blood STRUCTURE OF RIGHT UPPER LIMB / Unknown Venipuncture / Unknown 03/07/2024 7:02 PM CDT 03/07/2024 7:07 PM CDT us Sandra Monroy MD LAB - BLOOD ORDERABLES Fin al Result [facility] Acute Care Lab [address] Lab (1st floor, no room number) [place] [address], [facility] * Extra Red Top Tube (03/07/2024 7:02 PM CDT) Hold Specimen JI 03/07/2024 8:07 PM CDT LABORATORY Blood STRUCTURE OF RIGHT UPPER LIMB / Unknown Venipuncture / Unknown 03/07/2024 7:02 PM CDT 03/07/2024 7:07 PM CDT us Sanrda Monroy MD LAB - BLOOD ORDERABLES Fin al Result LABORATORY [facility] Acute Care Lab [address] Lab (1st floor, no room number) [place] [phone] [place] [address] * Extra Blue Top Tube (03/07/2024 7:02 PM CDT) Hold Specimen JIC 03/07/2024 8:07 PM CDT LABORATORY Blood STRUCTURE OF RIGHT UPPER LIMB / Unknown Venipuncture / Unknown 03/07/2024 7:02 PM CDT 03/07/2024 7:07 PM CDT Sandra Monroy MD LAB - BLOOD ORDERABLES Fin al Result Performing Organization Address [place]/[facility]/ZIP Co de Phone Number LABORATORY [facility] Lab [address] [employer] Lab (1st floor, no room number) [address] * (ABNORMAL) Basic metabolic panel (03/07/2024 7:02 [...] CDT RH LABORATORY Comment:eGFR calculated usin g 1 CKD-EPI equation. Calcium 8.6(L) 8.8 - 10.4 [...] - BLOOD ORDERABLES Fin al Result LABORATORY [facility] Acute Care Lab [address] [facility] Lab (1st floor, no room number) [place] [address] documented in this encounter Visit [...] First dose on Wed03/08/24 at 0115, Leonid Valdes Malecha is a 63 year old male [...] Dose rescheduled to 6 hours after last dose)194 ($Given - Provider: Lena Mathis RN)1999 (Canceled Entry - Provider: Orders Generic Provider - Comment: Automatically canceled at discontinue of medication order) insulin glargine (LANTUS PEN) injection 30 Units 30 Units, Subcutaneous, 2 TIMES DAILY, First dose on Wed03/08/24 at 0115 0300 ($Given - Provi sadia: Anel Willett RN)0810 ($Given - Provider: Rae Irene RN - Comment: BS 294)2000 (Canceled Entry - Provider: Orders Generic Provider - Comment: Automatically canceled at discontinue of medication order) insulin reg HIGH CONC (HumuLIN R U-500 KwikPen) PEN 500 Units/mL 100 Units, Subcutaneous, 3 TIMES DAILY BEFORE MEALS, First dose on Wed03/08/24 at 0115, Leonid Valdes Malecha is a 63 year old male [...] line. 1250 ($Given - Provi sadia: Rae Irene, RN) pantoprazole (PROTONIX) EC tablet 40 mg [...] EVERY EVENING, First dose on Wed03/08/24 at 2000 2000 (Canceled Entry - Provider: Orders Generic Provider - Comment: Automatically canceled at discontinue of medication order) sodium chloride 0.9% BOLUS 1,000 mL (COMPLETED) Intravenous, 1,000 mL, ONCE, at 1,000 mL/hr, Administer over 1 Hours, On Wed03/07/24 at 1945, For 1 dose 2047 ($New Bag - Provider: Rubia Zhao RN) 0400 (Stopped - Provider: Anel Willett RN) torsemide (DEMADEX) tablet 20 mg 20 mg, Oral, DAILY, First dose on Wed03/08/24 at 1225 1250 ($Given - Provi sadia: Rae Irene RN) venlafaxine (EFFEXOR XR) 24 hr capsule 225 mg 225 mg, Oral, DAILY, First dose on Wed03/08/24 at 1225, DO NOT CRUSH. 1250 ($Given - Provi sadia: Rae Irene RN) documented in this encounter Care Teams Dairy Associate Relationship Specialty Start Date End Date Services, [facility] Physician [address] [place] [address] PCP - General 05/22/21 Prince Tobar MD [address] [place] [address] [phone] Cardiovascular Disease 03/26/22 Prince Tobar MD [address] [place] [address] [id number] Assigned Heart and Vascular Provider 05/30/22 Matilde Pérez PA-C [address] [place] [address] [phone] Physician Bioinformatics Research Technician Physician Bioinformatics Research Technician - Surgical 12/30/23 documented as of this encounter
--- OUTSIDE RECORDS SUMMARY | 2024-03-11 13:44 | XMS_ITS | Encounter Summary ---
Author Organization [place] Address [address] [facility] 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 Gender Identity Not on file Sexual Orientation Choose not to disclose 2021 8:14 AM USER INTERFACE ARTIST documented as of this encounter Plan of Treatment Not on file documented as of this encounter Visit Diagnoses Not on filedocumented in this encounter Care Teams Terrazzo Layer Helper Relationship Specialty Start Date End Date Services, [place] Physician [address] [place] [address], [facility] [address] [place] [address] PCP - General 05/22/21 Prince Tobar MD [address] [place] [address] Cardiovascular Disease 03/26/22 Prince Tobar MD [address] [place] [address] Assigned Heart and Vascular Provider 05/30/22 Matilde Pérez PA-C [address] [place] [address] [phone] Physician Bessemer Converter Operator Physician Bessemer Converter Operator - Surgical 12/30/23 documented as of this encounter
--- OUTSIDE RECORDS SUMMARY | 2024-03-11 13:45 | XMS_ITS | Clinical Summary ---
Author Organization [facility] Address [place], [place] [address] Care Team Providers Care Stratigrapher Name Role Phone Alan Lopez MD Unavailable [...] type 2 diabetes mellitus (HC),Chronic edema JOBST #[id number] LRG FULL CALF KNEE BLACK 20-30 COMPRESSION [...] mg extended release tablet 24 HourIndications:CAD in [place] artery Take 1 tablet by mouth once [...] call MD 0 04/01/2020 Active Insulin Safety [place], Disp, (NOVOFINE AUTOCOVER) 30 gauge x /3Indications:Cecelia [...] at 10 am and no showed. RN [place], Juanita Yoo, notified and she will attempt [...] No, referral made to Advance Care Plan Casting House Worker. Patient has identified Specific Treatment Preferences: No Sophia Méndez RN .................... 07/06/2011 2:30 PM] Specific limits to treatment preferences NOT identified: ASSUME FULL TREATMENT. Assessment & Plan (05/25/2012 12:51 PM SPIRAL SPRING WINDER): Advance Care Planning: Disease-specific Session Leonid Leahy is a [facility] patient. His PCP is Leandra Limon at [facility]. Advance care planning discussions were completed with Leonid. He identified his sister, Brittany Suggs, as his healthcare agent. Brittany was not present for ACP session. Understanding of Illness and Disease [place]: Leonid identifies his medical condition as what [...] to live well: Daily visit to local [place] for a pop and to visit and catch up in the news with locals. Leonid obed with serious challenges in his life: Support of his sister, only a phone call away. 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 Leonid identifies the following fears [...] and primary care provider. Hard Choices for [place] People booklet was sent to Leonid and his health care agent for review. Leonid requested all information be mailed to his sister and personal lines underwriter to place call to sister to explain process. Leonid identified the following concerns during his advance care planning session: needing assistance at home to ensure he is managing his medications and treatments to keep going as is and stabilizing. Is followed by Clinic Capacity Planning Engineer for needed services. Questions identified for his primary care provider: none Documents addressed during this advance care planning session: Health Care Directive completed and scanned into medical record. Statement of Treatment Preferences for advanced illness completed and scanned into the medical record. Recommendations/Plan: Leonid to review Advance Care Plan with Leonid's healthcare agent. Weed Controller will be contacting Leonid's [facility] to explain services rendered, Leonid would benefit from: Home Care and/or Hospice when / if appropriate. [facility] services involved, [facility] of medical asistance. Care [...] 2:27 PM Sophia Méndez RN RN Clinic Capacity Planning Engineer - [facility] [phone] Vitamin D deficiency 01/06/2011 011 Neuropathy 09/25/2010 [...] 176.9 kg (390 lb) 07/14/2022 6:10 PM SPIRAL SPRING WINDER Height 167.6 cm (5' 6) 07/14/2022 6:10 PM SPIRAL SPRING WINDER Body Mass Index 62.95 07/14/2022 6:10 PM SPIRAL SPRING WINDER Plan of Treatment Health Maintenance Due Date [...] Kay García Medical Devices Implanted Type Area Laundry Assistant Device Identifier Shelf Expiration Date Model / Serial / Lot Iol Hudson +20 Tecnis Zcb00 - [id number] Implanted:Qty: 1 on 07/15/2022 by Tanner Fuentes MD at [facility] Left: Eye [employer] 06/24/2025 ZCB00 20.0 / [id number] / Iol Hudson +20 Tecnis Zcb00 - [id number] Implanted:Qty: 1 on 08/19/2022 by Tanner Fuentes MD at [facility] Right: Eye [employer] 06/24/2025 ZCB00 20.0 / [id number] / Procedures Procedure Name Priority Date/Time Associated Diagnosis Comments LIPID PANEL Routine 03/13/2019 2:31 PM CDT Essential hypertriglyceridemia from Last 3 Months or Most Recently Relevant to Health Maintenance Results * (ABNORMAL) LIPID PANEL (03/13/2019 2:31 PM CDT) [facility] CHOLESTEROL,TOTAL 193 100 - 199 mg/dL 03/13/2019 9:25 PM CDT [facility] TRAL LABORATORY TRIGLYCERIDES 715(H) <150 mg/dL 03/13/2019 9:25 PM CDT [facility] TRAL LABORAT[facility] HDL CHOLESTEROL 29(L) >40 mg/dL 9 9:25 PM CDT [facility] TRAL LABORATORY NON-HDL CHOLESTEROL 164(H) <145 mg/dl 03/13/2019 9:25 PM CDT [facility] TRAL LABORATORY CHOL/HDL RATIO 6.66(H) <4.50 03/13/2019 9:25 PM CDT [facility] TRAL LABORATORY LDL CHOLESTEROL 9 9:25 PM CDT [facility] TRAL LABORATORY Comment:Invalid LDL when Tri g >400. PROVIDER ORDERED STATUS RANDOM 03/13/2019 9:25 PM CDT [facility] TRAL LABORATORY Blood BLOOD SPECIMEN / Unknown Venipuncture / Unknown 03/13/2019 2:31 PM CDT 03/13/2019 2:31 PM CDT Suellen Sosa MD CHEMISTRY [facility] LABORATORY-[facility] LABORATORY [address] [place] [address], from Last 3 Months or Most Recently Relevant to Health Maintenance Advance Directives Documents on File Type Date Recorded Patient Drier And Grinder Tender Eduardo smiley POL 09/26/2014 3:45 PM [...] 9:30 PM 03/19/2009 6:17 PM Care Teams Stratigrapher Relationship Specialty Start Date End Date Pcp, No . PCP - General 07/15/22 Alan Lopez MD Internal Medicine Internal Medicine 11/20/10 Nishant Watson MD [address] [place] [address] Endocrinology 08/15/13
--- OUTSIDE RECORDS SUMMARY | 2024-03-11 13:45 | XMS_ITS | Encounter Summary ---
Author Organization [facility] Address [address] [facility] 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 Gender Identity Not on file Sexual Orientation Choose not to disclose 2021 8:14 AM PATROL SERGEANT SHERIFF'S OFFICE documented as of this encounter Plan of Treatment Not on file documented as of this encounter Visit Diagnoses Not on filedocumented in this encounter Care Teams Nurse Transitional Relationship Specialty Start Date End Date Services, [facility] Physician [address] [place] [address] PCP - General 05/22/21 Prince Tobar MD [address] [place], [place] [address] Cardiovascular Disease 03/26/22 Prince Tobar MD [address] [place] [address] Assigned Heart and Vascular Provider 05/30/22 documented as of this encounter
--- OUTSIDE RECORDS SUMMARY | 2024-03-11 13:45 | XMS_ITS | Encounter Summary ---
Author Organization [place] Address [address] [place] [address] Care Team Providers Care Roof Designer Name Role Phone Services, [facility] Physician Primary Care Provi sadia Prince Tobar MD Unavailable [phone] Prince Tobar MD Unavailable [phone] Reason for Referral * Consultation (Priority: 1-2 Weeks) - Pending Review Specialty Diagnoses / Procedures Referred By Contjohnny t Referred To Contact Colon and Rectal Surgery Diagnoses Anal fissure External hemorrhoids Reinaldo Beltran PA-C [facility] [address] [place] [address] Phone: tel: fax: Referral ID Status Reason Start Date Expiration Date V isits Requested Visits Authorized [id number] Pending Review 12/28/2023 12/27/2024 1 1 Question Answer Reason for Referral: Anal Fissure Special Concerns: Other My Clinical Question Is: Anal fissure, taking Apixaban Scheduling Instructions: [facility] will call you to coordinate care as prescribed your provider. If you don? t hear from a credit and collections representative within 2 business days, please call . Comments Please be aware that coverage of these services is subject to the terms and limitations of your health insurance plan. Call member services at your health plan with any benefit or coverage questions. [facility] will call you to coordinate care as prescribed your provider. If you don? t hear from a credit and collections representative within 2 business days, please call . 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 The bleeding [...] mouth daily cholecalciferol (VITAMIN D3) 1250 mcg (67371 units) capsule Take 1,250 mcg by mouth [...] 7 days 4 g 12/28/2023 nystatin (MYCOSTATIN) 302347 UNIT/GM external powder Apply topically 2 times [...] MG tablet cholecalciferol (VITAMIN D3) 1250 mcg (85702 units) capsule clotrimazole (LOTRIMIN) 1 % external [...] 200 MG 24 hr tablet nystatin (MYCOSTATIN) 578603 UNIT/GM external powder pantoprazole (PROTONIX) 40 MG [...] POS Antibody Screen Negative SPECIMEN EXPIRATION DATE [id number] ABO/RH TYPE AND SCREEN Emergency Department Course [...] 1. Anal fissure K60.2 Adult Colorectal Surgery Liner Machine Operator Referral 2. External hemorrhoids K64.4 Adult Colorectal Surgery Liner Machine Operator Referral Discharge Medications: New Prescriptions HYDROCORTISONE, [...] yesterday, he went to a clinic in [place], he is unsure of what was done [...] MG tablet cholecalciferol (VITAMIN D3) 1250 mcg (31055 units) capsule clotrimazole (LOTRIMIN) 1 % external [...] 200 MG 24 hr tablet nystatin (MYCOSTATIN) 558172 UNIT/GM external powder pantoprazole (PROTONIX) 40 MG [...] POS Antibody Screen Negative SPECIMEN EXPIRATION DATE [id number] ABO/RH TYPE AND SCREEN Imaging No orders to display Independent Interpretation None ED Course Medications Administered Medications - No data to display Procedures Procedures Discussion of Management Staffed with Dr. Cesar ED Course ED Course as of 12/28/231936Dec 28, 20231838 I evaluated and examined the patient 1902 Rectal exam with RN at bedside Additional Documentation None Medical Decision Making / Diagnosis [facility] Diagnoses: None MIPS None [facility] Leonid Leahy is a 63 year [...] 1. Anal fissure K60.2 Adult Colorectal Surgery Liner Machine Operator Referral 2. External hemorrhoids K64.4 Adult Colorectal Surgery Liner Machine Operator Referral Discharge Medications New Prescriptions HYDROCORTISONE, [...] Pt comes from assisted living facility in [place]. * Tamiko Monzon RN - 12/28/2023 6:08 PM CDT Bed: ED01 Expected date: Expected time: Means of arrival: Comments: [id number] 63Ym documented in this encounter Plan of Treatment Scheduled Referrals Name Type Priority Associated Diagnoses Orde r Schedule Adult Colorectal Surgery Liner Machine Operator Referral Referral Priority: 1-2 Weeks Anal [...] CDT RH BLOOD BANK SPECIMEN EXPIRATION DATE [id number] 12/28/2023 6:28 PM CDT RH BLOOD BANK Blood STRUCTURE OF RIGHT UPPER LIMB / Unknown Venipuncture / Unknown 12/28/2023 6:41 PM CDT 12/28/2023 6:46 PM CDT Agustin Cesar MD LAB - BLOOD BANK TEST O RDER Final Result BLOOD BANK [facility] [place] [address], [facility] * (ABNORMAL) CBC [...] LAB - BLOOD ORDERABLES Final Result LABORATORY [facility] Acute Care Lab [address] Lab (1st floor, no room number) [place] [address], [facility] * (ABNORMAL) Comprehensive [...] MD LAB - BLOOD ORDERABLES Final Result [facility] Lab [address] Lab (1st floor, no room number) [place] [address] * Partial thromboplastin time (12/28/2023 6:41 PM CDT) aPTT 28 22 - 38 Seconds 12/28/2023 7:00 PM CDT RH LABORATORY Blood STRUCTURE OF RIGHT UPPER LIMB / Unknown Venipuncture / Unknown 12/28/2023 6:41 PM CDT 12/28/2023 6:46 PM CDT Agustin Cesar MD LAB - BLOOD ORDERABLES Final Result [facility] Acute Care Lab [address] Lab (1st floor, no room number) [place] [address] * INR (12/28/2023 6:41 PM CDT) INR 1.01 0.85 - 1.15 12/28/2023 7:00 PM CDT RH LABORATORY Blood STRUCTURE OF RIGHT UPPER LIMB / Unknown Venipuncture / Unknown 12/28/2023 6:41 PM CDT 12/28/2023 6:46 PM CDT us Agustin Cesar MD LAB - BLOOD ORDERABLES Final Result [facility] Acute Care Lab [address] Lab (1st floor, no room number) [place] [address], [facility] documented in this encounter Visit Diagnoses Diagnosis Anal fissure External hemorrhoids External hemorrhoids without mention of complication documented in this encounter Care Teams Roof Designer Relationship Specialty Start Date End Date Services, [facility] Physician [address] [place] [address] PCP - General 05/22/21 Prince Tobar MD [address] [place] [address] Cardiovascular Disease 03/26/22 Prince Tobar MD [address] [place] [address] Assigned Heart and Vascular Provider 05/30/22 documented as of this encounter
== END 2024-03-05 16:45 | disposition home or self-care (01) ==
LOC: AMB 03-11 13:26
PROVIDERS: Visit Provider Family Medicine
DX: E11.65 Type 2 diabetes mellitus with hyperglycemia (principal)
CPT/HCPCS: A0425; A0428

== ENCOUNTER 2024-03-06 05:01 | Outpatient (CLI) | payer MEDICARE, MEDICAID, SELFPAY ==
--- OUTSIDE RECORDS SUMMARY | 2024-03-07 03:55 | XMS_ITS | Referral Summary ---
Author Organization [facility] Address [address] [place] [address] Care Team Providers Care Electronic Die Maker Name Role Phone Services, [facility] Physician Primary Care Provi sadia Prince Tobar MD Unavailable Prince Tobar MD Unavailable Matilde Pérez PA-C Unavailable [phone] Encounters Date Type Department Care Team Description 12/28/2023 6:08 PM CDT - 12/29/2023 12:59 AM T Emergency [facility] Emergency Dept [address] [place] [address] Agustin Cesar MD Anal fissure; External hemorrhoids [...] daily Active cholecalciferol (VITAMIN D3) 1250 mcg (19375 units) capsule Take 1,250 mcg by mouth every 7 days on Wednesdays. 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 Last Filed Vital Signs Vital Sign [...] st Contact Info) Description 03/08/2024 PRE VISIT [facility] Colon and Rectal Surgery Clinic [address] [place] [address] Matilde Pérez PA-C [address] [place] [address] Previsit 03/08/2024 12:00 PM CDT Office Visit [facility]al Surgery [facility] [address] [place] [address] Reinaldo Beltran PA-C [facility] [address] [place] [phone] Matilde Pérez PA-C [address] [place] [address] Procedures Procedure Name Priority Date/Time Associated Diagnosis [...] without heart failure Atherosclerotic heart disease of [place] coronary artery without angina pectoris Body mass index (BMI) 60.0-69.9, adult (H) Chronic kidney disease, unspecified from Last 3 Months or Most Recently Relevant to Health Maintenance Results * (ABNORMAL) CBC with platelets and differential (12/28/2023 6:41 PM CDT) [facility] WBC Count 5.9 4.0 - [...] LAB - BLOOD ORD ERABLES RH LABORATORY [facility] Lab [address] Lab (1st floor, no room number) [place] [address] * Adult Type and Screen (12/28/2023 6:41 PM CDT) ABO/RH(D) A POS 12/28/2023 6:28 PM CDT RH BLOOD BANK Antibody Screen Negative Negative 12/28/2023 6:28 PM CDT RH BLOOD BANK SPECIMEN EXPIRATION DATE [id number] 12/28/2023 6:28 PM CDT RH BLOOD BANK Blood STRUCTURE OF RIGHT UPPER LIMB / Unknown Venipuncture / Unknown 12/28/2023 6:41 PM CDT 12/28/2023 6:46 PM CDT Agustin Cesar MD LAB - BLOOD BAN K TEST ORDER Performing Organization Address City/[facility]/ZIP Co de Phone Number RH BLOOD BANK [address] [place] [address] * INR (12/28/2023 6:41 PM CDT) INR 1.01 0.85 - 1.15 12/28/2023 7:00 PM CDT [facility] LABORATORY Blood STRUCTURE OF RIGHT UPPER LIMB / Unknown Venipuncture / Unknown 12/28/2023 6:41 PM CDT 12/28/2023 6:46 PM CDT Agustin Cesar MD LAB - BLOOD ORD ERABLES LABORATORY [facility] [address] Lab (1st floor, no room number) [place] [phone] [place] [address] * Partial thromboplastin time (12/28/2023 6:41 PM CDT) aPTT 28 22 - 38 Seconds 12/28/2023 7:00 PM CDT LABORATORY Blood STRUCTURE OF RIGHT UPPER LIMB / Unknown Venipuncture / Unknown 12/28/2023 6:41 PM CDT 12/28/2023 6:46 PM CDT Agustin Cesar MD LAB - BLOOD ORD ERABLES Performing Organization Address [facility]/ZIP Co de Phone Number LABORATORY [facility] [address] Lab (1st floor, no room number) [address] * (ABNORMAL) Comprehensive metabolic panel (12/28/2023 [...] MD LAB - BLOOD ORD ERABLES LABORATORY [facility] Lab [address] [facility] Lab (1st floor, no room number) [place] [address], [facility] * (ABNORMAL) Hemoglobin A1c (10/15/2023 3:13 PM CDT) Hemoglobin A1C 10.8(H) <5.7 % 10/15/2023 4:57 PM CDT RH LABORATORY Comment: Normal <5.7% Prediabetes 5.7-6.4% ?? Diabetes 6.5% or higher Note: Adopted from ADA consensus guidelines. Blood BLOOD SPECIMEN / Unknown Client Draw / Unknown 10/15/2023 3:13 PM CDT 10/15/2023 4:25 PM CDT Harrison Munson NP LAB - BLOOD ORDERABL ES [facility] Acute Care Lab [address] Lab (1st floor, no room number) [place] [address], [facility] from Last 3 Months or Most Recently Relevant to Health Maintenance Advance Directives For more information, please contact: [phone] Documents on File Type Date Recorded Patient Manager Servicing Expl anation Advance Directives and Living Will [...] yissel nt/ legal decision maker Care Teams Electronic Die Maker Relationship Specialty Start Date End Date Services, [facility] Physician [address] [facility], [address] [address] PCP - General 05/22/21 Prince Tobar MD [address] [place] [phone] Cardiovascular Disease 03/26/22 Prince Tobar MD [address] [place] [address] 695215 Assigned Heart and Vascular Provider 05/30/22 Matilde Pérez PA-C [address] [place] [address] Physician Superintendent Menagerie Physician Superintendent Menagerie - Surgical 12/30/23
--- OUTSIDE RECORDS SUMMARY | 2024-03-07 03:55 | XMS_ITS | Encounter Summary ---
Author Organization [facility] Address [address] [place] [address] Care Team Providers Care Crystal Mounter Name Role Phone Services, [facility] Physician Primary Care Provi sadia Prince Tobar MD Unavailable [phone] Prince Tobar MD Unavailable [phone] Reason for Referral * Consultation (Priority: 1-2 Weeks) - Pending Review Specialty Diagnoses / Procedures Referred By Contjohnny dalal Referred To Contact Colon and Rectal Surgery Diagnoses Anal fissure External hemorrhoids Reinaldo Beltran PA-C [facility] [address] [place] [address] Referral ID Status Reason Start Date Expiration Date V isits Requested Visits Authorized [id number] Pending Review 12/28/2023 12/27/2024 1 1 Question Answer Reason for Referral: Anal Fissure Special Concerns: Other My Clinical Question Is: Anal fissure, taking Apixaban Scheduling Instructions: [employer] will call you to coordinate care as prescribed your provider. If you don? t hear from a auto service representative within 2 business days, please call . Comments Please be aware that coverage of these services is subject to the terms and limitations of your health insurance plan. Call member services at your health plan with any benefit or coverage questions. [employer] will call you to coordinate care as prescribed your provider. If you don? t hear from a auto service representative within 2 business days, please call . Reason for Visit * Reason Comments Rectal Bleeding Encounter Details Date Type Department Care Team (Late st Contact Info) Description 12/28/2023 6:08 PM CDT - 12/29/2023 12:59 AM CDT Emergency [facility] Emergency Dept [address] [place] [address] Agustin Cesar MD [address] [address] Anal fissure; External hemorrhoids Discharge Disposition: Home [...] Choose not to disclose 2021 8:14 AM [employer] documented as of this encounter Last Filed [...] CDT Thank you for coming to [facility] emergency department. The bleeding you noted [...] mouth daily cholecalciferol (VITAMIN D3) 1250 mcg (96771 units) capsule Take 1,250 mcg by mouth [...] 7 days 4 g 12/28/2023 nystatin (MYCOSTATIN) 826230 UNIT/GM external powder Apply topically 2 times [...] MG tablet cholecalciferol (VITAMIN D3) 1250 mcg (75565 units) capsule clotrimazole (LOTRIMIN) 1 % external [...] 200 MG 24 hr tablet nystatin (MYCOSTATIN) 247482 UNIT/GM external powder pantoprazole (PROTONIX) 40 MG [...] POS Antibody Screen Negative SPECIMEN EXPIRATION DATE [id number] ABO/RH TYPE AND SCREEN Emergency Department Course [...] 1. Anal fissure K60.2 Adult Colorectal Surgery Imaging Services Director Referral 2. External hemorrhoids K64.4 Adult Colorectal Surgery Imaging Services Director Referral Discharge Medications: New Prescriptions HYDROCORTISONE, PERIANAL, [...] yesterday, he went to a clinic in [place], he is unsure of what was done [...] MG tablet cholecalciferol (VITAMIN D3) 1250 mcg (51201 units) capsule clotrimazole (LOTRIMIN) 1 % external [...] 200 MG 24 hr tablet nystatin (MYCOSTATIN) 974820 UNIT/GM external powder pantoprazole (PROTONIX) 40 MG [...] POS Antibody Screen Negative SPECIMEN EXPIRATION DATE [id number] ABO/RH TYPE AND SCREEN Imaging No orders to display Independent Interpretation None ED Course Medications Administered Medications - No data to display Procedures Procedures Discussion of Management Staffed with Dr. Cesar ED Course ED Course as of 12/28/231936Dec 28, [id number] I evaluated and examined the patient 1902 Rectal exam with RN at bedside Additional Documentation None Medical Decision Making / Diagnosis [facility] Diagnoses: None MIPS None [facility] Leonid Leahy is a 63 [...] 1. Anal fissure K60.2 Adult Colorectal Surgery Imaging Services Director Referral 2. External hemorrhoids K64.4 Adult Colorectal Surgery Imaging Services Director Referral Discharge Medications New Prescriptions HYDROCORTISONE, PERIANAL, [...] Pt comes from assisted living facility in [place]. * Tamiko Monzon RN - 12/28/2023 6:08 PM CDT Bed: ED01 Expected date: Expected time: Means of arrival: Comments: [id number] documented in this encounter Plan of Treatment Upcoming Encounters Date Type Department Care Team (Late st Contact Info) Description 03/08/2024 PRE VISIT [facility] Colon and Rectal Surgery Clinic [address] [address] Matilde Pérez PA-C [address] [place] [address] Previsit 03/08/2024 12:00 PM CDT Office Visit [facility] Colon and Rectal Surgery Clinic [address] [phone] Reinaldo Beltran PA-C [facility] [address] [place] [phone] Matilde Pérez PA-C [address] [place] [address] Scheduled Referrals Name Type Priority Associated Diagnoses Orde r Schedule Adult Colorectal Surgery Imaging Services Director Referral Referral Priority: 1-2 Weeks Anal fissure [...] CDT RH BLOOD BANK SPECIMEN EXPIRATION DATE [id number] 12/28/2023 6:28 PM CDT RH BLOOD BANK Blood STRUCTURE OF RIGHT UPPER LIMB / Unknown Venipuncture / Unknown 12/28/2023 6:41 PM CDT 12/28/2023 6:46 PM CDT Agustin Cesar MD LAB - BLOOD BAN K TEST ORDER [place]LOOD [place] [address], [facility] * (ABNORMAL) CBC with platelets and [...] MD LAB - BLOOD ORD ERABLES LABORATORY [facility] Acute Care Lab [address] [facility] Lab (1st floor, no room number) [place] [address], [facility] * (ABNORMAL) Comprehensive metabolic panel (12/28/2023 [...] MD LAB - BLOOD ORD ERABLES LABORATORY [facility] Acute Care Lab [address] [facility] Lab (1st floor, no room number) [place] [address], [facility] * Partial thromboplastin time (12/28/2023 6:41 PM CDT) aPTT 28 22 - 38 Seconds 12/28/2023 7:00 PM CDT RH LABORATORY Blood STRUCTURE OF RIGHT UPPER LIMB / Unknown Venipuncture / Unknown 12/28/2023 6:41 PM CDT 12/28/2023 6:46 PM CDT Agustin Cesar MD LAB - BLOOD ORD ERABLES [facility] [address] Lab (1st floor, no room number) [place] [address] * INR (12/28/2023 6:41 PM CDT) INR 1.01 0.85 - 1.15 12/28/2023 7:00 PM CDT LABORATORY Blood STRUCTURE OF RIGHT UPPER LIMB / Unknown Venipuncture / Unknown 12/28/2023 6:41 PM CDT 12/28/2023 6:46 PM CDT Agustin Cesar MD LAB - BLOOD ORD ASHISH Performing Organization Address City/[facility]/ZIP Co de Phone Number [facility] [address] Lab (1st floor, no room number) [place] [address] documented in this encounter Visit Diagnoses Diagnosis Anal fissure External hemorrhoids External hemorrhoids without mention of complication documented in this encounter Care Teams Crystal Mounter Relationship Specialty Start Date End Date Services, [facility] Physician [address] [place] [address] PCP - General 05/22/21 Prince Tobar MD [address] [place] [address] Cardiovascular Disease 03/26/22 Prince Tobar MD [address] [place] [address] Assigned Heart and Vascular Provider 05/30/22 documented as of this encounter
--- OUTSIDE RECORDS SUMMARY | 2024-03-07 03:55 | XMS_ITS | Clinical Summary ---
Author Organization [place] Address [address] [place] [address] Care Team Providers Care Design Coordinator Name Role Phone Services, [facility] Physician Primary Care Provi sadia Prince Tobar [...] daily Active cholecalciferol (VITAMIN D3) 1250 mcg (84689 units) capsule Take 1,250 mcg by mouth every 7 days on Wednesdays. Active venlafaxine (EFFEXOR-XR) 75 MG 24 hr capsule Take 225 mg by mouth daily Active hydrALAZINE (APRESOLINE) 50 MG tablet Take 50 mg by mouth 4 times daily Active polyethylene glycol (MIRALAX) 17 GM/Dose powder Take 17 g by mouth daily Active nystatin (MYCOSTATIN) 437061 UNIT/GM external powder Apply topically 2 times [...] CDT - 12/29/2023 12:59 AM CDT Emergency [facility] Emergency Dept [address] [place] [address] Agustin Cesar MD Anal fissure; External hemorrhoids Discharge Disposition: Home or Self Care 12/28/2023 Travel from Last 3 Months Immunizations Name Administration Dates Next Due COVID-19 MONOVALENT 12+ (Pfizer) 06/25/2020,05/17 Y2s0-25 Novel Flu 05/07/2009 Hepatitis B, Adult 02/16/2014,10/12/2013, [...] 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 to 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 Last Filed Vital Signs Vital Sign Reading [...] [facility] [address] [place] [address] Matilde Pérez PA-C [address] [place] [address] Previsit 03/08/2024 12:00 PM CDT Office Visit [facility] [address] 4th [place] [address] Reinaldo Beltran PA-C Emergency Physicians [facility] [address] [place] [phone] Matilde Pérez PA-C [address] [place] [address] Health Maintenance Due Date Last Done Comments [...] without heart failure Atherosclerotic heart disease of [place] coronary artery without angina pectoris Body mass index (BMI) 60.0-69.9, adult (H) Chronic kidney disease, unspecified from Last 3 Months or Most Recently Relevant to Health Maintenance Results * (ABNORMAL) CBC with platelets and differential (12/28/2023 6:41 PM CDT) Pathologist [facility] WBC Count 5.9 4.0 - 11.0 [...] MD LAB - BLOOD ORD ERABLES LABORATORY [facility] Acute Care Lab [address] Lab (1st floor, no room number) [place] [address] * Adult Type and Screen (12/28/2023 6:41 PM CDT) ABO/RH(D) A POS 12/28/2023 6:28 PM CDT RH BLOOD BANK Antibody Screen Negative Negative 12/28/2023 6:28 PM CDT RH BLOOD BANK SPECIMEN EXPIRATION DATE [id number] 12/28/2023 6:28 PM CDT RH BLOOD BANK Blood STRUCTURE OF RIGHT UPPER LIMB / Unknown Venipuncture / Unknown 12/28/2023 6:41 PM CDT 12/28/2023 6:46 PM CDT Agustin Cesar MD LAB - BLOOD BAN K TEST ORDER Performing Organization Address [facility]/ZIP Co de Phone Number BLOOD BANK [address] [place] [address] * INR (12/28/2023 6:41 PM CDT) INR 1.01 0.85 - 1.15 12/28/2023 7:00 PM CDT [facility] LABORATORY Blood STRUCTURE OF RIGHT UPPER LIMB / Unknown Venipuncture / Unknown 12/28/2023 6:41 PM CDT 12/28/2023 6:46 PM CDT Agustin Cesar MD LAB - BLOOD ORD ERABLES [facility] LABORATORY [facility] Lab [address] Lab (1st floor, no room number) [place] [phone] * Partial thromboplastin time (12/28/2023 6:41 PM CDT) aPTT 28 22 - 38 Seconds 12/28/2023 7:00 PM CDT LABORATORY Blood STRUCTURE OF RIGHT UPPER LIMB / Unknown Venipuncture / Unknown 12/28/2023 6:41 PM CDT 12/28/2023 6:46 PM CDT Agustin Cesar MD LAB - BLOOD ORD ERABLES LABORATORY [facility] Lab [address] Lab (1st floor, no room number) [place] [phone] * (ABNORMAL) Comprehensive metabolic panel [...] MD LAB - BLOOD ORD ERABLES LABORATORY [facility] Acute Care Lab [address] [facility] Lab (1st floor, no room number) [place] [address], [facility] * (ABNORMAL) Hemoglobin A1c (10/15/2023 3:13 PM CDT) Hemoglobin A1C 10.8(H) <5.7 % 10/15/2023 4:57 PM CDT [facility] LABORATORY Comment: Normal <5.7% Prediabetes 5.7-6.4% ?? Diabetes 6.5% or higher Note: Adopted from ADA consensus guidelines. Blood BLOOD SPECIMEN / Unknown Client Draw / Unknown 10/15/2023 3:13 PM CDT 10/15/2023 4:25 PM CDT Harrison Kern GOLF CLUB MANAGER LAB - BLOOD ORDERABL ES [facility] Acute Care Lab [address] Lab (1st floor, no room number) [place] [address], [facility] from Last 3 Months or Most Recently Relevant to Health Maintenance Advance Directives For more information, please contact: [phone] Documents on File Type Date Recorded Patient Manager Of Software Development Expl anation Advance Directives and Living Will [...] yissel nt/ legal decision maker Care Teams Design Coordinator Relationship Specialty Start Date End Date Services, [facility] Physician [address] [place] [address], [facility] [address] [place] [address] PCP - General 05/22/21 Prince Tobar MD [address] [place], [place] [phone] Cardiovascular Disease 03/26/22 Prince Tobar MD [address] [place], [place] [phone] Assigned Heart and Vascular Provider 05/30/22 Matilde Pérez PA-C [address] [place] [phone] Physician Success Coach Physician Success Coach - Surgical 12/30/23
--- OUTSIDE RECORDS SUMMARY | 2024-03-07 03:55 | XMS_ITS | Clinical Summary ---
Author Organization [facility] Address [address] [place] [address] Phone Care Team Providers Care Barrel Drum Cutter Name Role Phone Mellisa Shirley PA-C Primary Care Provider [phone] Allergies Active Allergy Reactions Criticality Noted Date [...] 2 Active cholecalciferol (VITAMIN D-3) 1.25 MG (45787 UT) capsule Take 1,250 mcg by mouth [...] topic Insurance MEDICAID [place] MEDICARE Care Teams Barrel Drum Cutter Relationship Specialty Start Date End Date Mellisa Shirley PA-C PCP - General Physician Physical Fitness Trainer 08/31/22
--- OUTSIDE RECORDS SUMMARY | 2024-03-07 03:56 | XMS_ITS | Clinical Summary ---
Author Organization [email or web address] Address [place], [place] [address] Care Team Providers Care Line Assembler Aircraft Name Role Phone Alan Lopez MD Unavailable [...] type 2 diabetes mellitus (HC),Chronic edema JOBST #[id number] LRG FULL CALF KNEE BLACK 20-30 COMPRESSION [...] mg extended release tablet 24 HourIndications:CAD in [place] artery Take 1 tablet by mouth once [...] call MD 0 04/01/2020 Active Insulin Safety [place], Disp, (NOVOFINE AUTOCOVER) 30 gauge x /3Indications:Cecelia [...] at 10 am and no showed. RN Study Specialist, Juanita Yoo, notified and she will attempt [...] No, referral made to Advance Care Plan Lawn Technician. Patient has identified Specific Treatment Preferences: No Sophia Méndez RN .................... 07/06/2011 2:30 PM] Specific limits to treatment preferences NOT identified: ASSUME FULL TREATMENT. Assessment & Plan (05/25/2012 12:51 PM SYSTEMS DESIGN ENGINEER): Advance Care Planning: Disease-specific Session Leonid Leahy is a [facility] patient. His PCP is Leandra Limon at [facility]. Advance care planning discussions were completed with Leonid. He identified his sister, Brittany Suggs, as his healthcare agent. Brittany was not present for ACP session. Understanding of Illness and Disease [place]: Leonid identifies his medical condition as what [...] to live well: Daily visit to local [employer] for a pop and to visit and catch up in the news with locals. Leonid obed with serious challenges in his life: Support of his sister, only a phone call away. Helps manage [facility] services. Leonid identifies the following [...] and primary care provider. Hard Choices for [employer] booklet was sent to Leonid and his health care agent for review. Leonid requested all information be mailed to his sister and commercial insurance underwriter to place call to sister to explain process. Leonid identified the following concerns during his advance care planning session: needing assistance at home to ensure he is managing his medications and treatments to keep going as is and stabilizing. Is followed by Clinic Outreach Assistant for needed services. Questions identified for his primary care provider: none Documents addressed during this advance care planning session: Health Care Directive completed and scanned into medical record. Statement of Treatment Preferences for advanced illness completed and scanned into the medical record. Recommendations/Plan: Leonid to review Advance Care Plan with Leonid's healthcare agent. Baler Operator will be contacting Leonid's [facility] to explain services rendered, Leonid would benefit from: Home Care and/or Hospice when / if appropriate. [facility] services involved, [facility] supports coordination of medical asistance. Care Management- [...] 2:27 PM Sophia Méndez RN RN Clinic Outreach Assistant - [facility] [phone] Vitamin D deficiency 01/06/2011 011 Neuropathy 09/25/2010 [...] 176.9 kg (390 lb) 07/14/2022 6:10 PM SYSTEMS DESIGN ENGINEER Height 167.6 cm (5' 6) 07/14/2022 6:10 PM SYSTEMS DESIGN ENGINEER Body Mass Index 62.95 07/14/2022 6:10 PM SYSTEMS DESIGN ENGINEER Plan of Treatment Health Maintenance Due Date [...] Kay García Medical Devices Implanted Type Area Economics Lecturer Device Identifier Shelf Expiration Date Model / Serial / Lot Iol [place] +20 Tecnis Zcb00 - [id number] Implanted:Qty: 1 on 07/15/2022 by Tanner Fuentes MD at [facility] Left: Eye [employer] 06/24/2025 ZCB00 20.0 / [id number] / Iol [place]burn +20 Tecnis Zcb00 - [id number] Implanted:Qty: 1 on 08/19/2022 by Tanner Fuentes MD at [facility] Right: Eye [employer] 06/24/2025 ZCB00 20.0 / [id number] / Procedures Procedure Name Priority Date/Time Associated Diagnosis Comments LIPID PANEL Routine 03/13/2019 2:31 PM CDT Essential hypertriglyceridemia from Last 3 Months or Most Recently Relevant to Health Maintenance Results * (ABNORMAL) LIPID PANEL (03/13/2019 2:31 PM CDT) [facility] [address] CHOLESTEROL,TOTAL 193 100 - 199 mg/dL 03/13/2019 9:25 PM CDT [facility] TRIGLYCERIDES 715(H) <150 mg/dL 03/13/2019 9:25 PM CDT [facility] HDL CHOLESTEROL 29(L) >40 mg/dL 9 9:25 PM CDT [facility] TRAL LABORATORY NON-HDL CHOLESTEROL 164(H) <145 mg/dl 03/13/2019 9:25 PM CDT [facility] TRAL LABORATORY CHOL/HDL RATIO 6.66(H) <4.50 03/13/2019 9:25 PM CDT [facility] LABORAT[facility] LDL CHOLESTEROL 9 9:25 PM CDT [facility] TR[facility] LAB[facility] Comment:Invalid LDL when Tri g >400. PROVIDER ORDERED STATUS RANDOM 03/13/2019 9:25 PM CDT [facility] TR[facility] LAB[facility]ORY Blood BLOOD SPECIMEN / Unknown Venipuncture / Unknown 03/13/2019 2:31 PM CDT 03/13/2019 2:31 PM CDT Suellen Sosa MD [email or web address] LABORATORY-[facility] LAB[facility]AT[facility] [address] [place] [address], from Last 3 Months or Most Recently Relevant to Health Maintenance Advance Directives Documents on File Type Date Recorded Patient Customer Complaint Clerk Eduardo smiley POL 09/26/2014 3:45 PM AH [...] 9:30 PM 03/19/2009 6:17 PM Care Teams Line Assembler Aircraft Relationship Specialty Start Date End Date Pcp, No . PCP - General 07/15/22 Alan Lopez MD Internal Medicine Internal Medicine 11/20/10 Nishant Watson MD [address] [place] [address] Endocrinology 08/15/13
--- OUTSIDE RECORDS SUMMARY | 2024-03-07 03:56 | XMS_ITS | Encounter Summary ---
Author Organization [place] Address [address] [place] [address] Care Team Providers Care Naprapath Name Role Phone Services, [facility] Physician Primary Care Provi sadia [...] Choose not to disclose 2021 8:[address] documented as of this encounter Plan of Treatment Upcoming Encounters Date Type Department Care Team (Late st Contact Info) Description 03/08/[address] [facility] [address] [address] Matilde Pérez PA-C [address] [place] [address] Previsit 03/08/2024 12:00 PM CDT Office Visit [facility] [address] [place] [phone] Reinaldo Beltran PA-C Emergency Physicians [facility] [address] [facility] [address] [place] [address] Matilde Pérez PA-C [address] [place], [place] [address] documented as of this encounter Visit Diagnoses Not on filedocumented in this encounter Care Teams Naprapath Relationship Specialty Start Date End Date Services, [facility] Physician [address] [facility], [facility] [address] [place], [place] [phone] PCP - General 05/22/21 Prince Tobar MD [address] [place] [address] Cardiovascular Disease 03/26/22 Prince Tobar MD [address] [place] [address] Assigned Heart and Vascular Provider 05/30/22 documented as of this encounter
== END 2024-03-06 05:02 | disposition home or self-care (01) ==
LOC: AMB 03-07 03:34
PROVIDERS: Visit Provider Family Medicine
DX: M53.3 Sacrococcygeal disorders, not elsewhere classified (principal)
CPT/HCPCS: A0425; A0429

== ENCOUNTER 2024-03-06 05:42 | Emergency (ER) | payer MEDICARE, MEDICAID, SELFPAY ==
[2024-03-06 05:43] VITALS: BP 105/36; PULSE 80; RESP 18; TEMP 37; O2SAT 93; BMI 62.1
--- NOTE | 2024-03-06 05:50 | ED.BACK ---
HPI - Back Pain/Injury General Time Seen by Provider: 05:50 Date Seen: 03/06/24 Chief Complaint: Back Injury/Pain Stated Complaint: Pain Time Seen by Provider: 03/06/24 05:50 Source: patient, RN notes reviewed and old records reviewed Mode of arrival: EMS Limitations: no limitations History of Present Illness HPI Narrative: 63-year-old male well-known to the emergency department, this is patient's 3rd visit in four days. Patient presents today with buttock and tailbone pain that he says started last night. Denies falls or injury, pain with sitting. Denies pain with bowel movements. No leg pain, no bowel or bladder incontinence. Took Tylenol for this a couple hours ago. Related Data Home Medications ?Medication ?Instructions ?Recorded ?Confirmed amlodipine 10 mg tablet 10 mg PO DAILY 03/07/22 02/20/24 apixaban 5 mg tablet (Eliquis) 5 mg PO BID 03/07/22 02/20/24 aripiprazole 15 mg tablet 7.5 mg PO DAILY 03/07/22 02/20/24 aspirin 81 mg tablet,delayed 81 mg PO DAILY 03/07/22 02/21/24 release carbamazepine 200 mg tablet 200 mg PO BID 03/07/22 02/20/24 chlorthalidone 25 mg tablet 25 mg PO DAILY 03/07/22 02/20/24 ezetimibe 10 mg tablet 10 mg PO DAILY 03/07/22 02/20/24 hydralazine 50 mg tablet 50 mg PO QID 03/07/22 02/20/24 pantoprazole 40 mg tablet,delayed 40 mg PO DAILY 03/07/22 02/20/24 release polyethylene glycol 3350 17 17 g PO DAILY 03/07/22 02/21/24 gram/dose oral powder pregabalin 100 mg capsule 100 mg PO QAM 03/07/22 02/20/24 pregabalin 150 mg capsule 150 mg PO HS 03/07/22 02/20/24 torsemide 20 mg tablet 20 mg PO DAILY 03/07/22 02/20/24 venlafaxine 75 mg capsule,extended 225 mg PO DAILY 03/07/22 02/20/24 release 24 hr acetaminophen 500 mg tablet 500 mg PO Q6H 06/13/22 02/21/24 albuterol sulfate 90 mcg/actuation 1 inh inhalation Q4H PRN 06/13/22 02/21/24 aerosol inhaler bronchospasm diphenhydramine HCl 50 mg capsule 50 mg PO Q6H PRN itching 06/13/22 02/21/24 (Banophen) icosapent ethyl 1 gram capsule 2 g PO BID 06/13/22 02/21/24 (Vascepa) insulin regular hum U-500 conc 500 100 unit subcut TID 06/13/22 02/20/24 unit/mL(3 mL) subcut pen (Humulin R U-500 (Conc) Insulin Kwikpen) ketoconazole 2 % shampoo 1 applic topical Q3D 06/13/22 02/21/24 loperamide 2 mg capsule 2 mg PO Q6H PRN loose stool 06/13/22 02/21/24 nystatin 100,000 unit/gram topical 1 applic topical BID PRN 06/13/22 02/20/24 powder sennosides 8.6 mg tablet (senna) 8.6 mg PO DAILY 06/13/22 02/21/24 clotrimazole 1 % topical cream 1 applic topical BID 07/25/22 02/21/24 ergocalciferol (vitamin D2) 1,250 50,000 unit PO WE@09 07/25/22 02/21/24 mcg (50,000 unit) capsule insulin glargine 100 unit/mL (3 30 unit subcut BID 12/27/23 02/20/24 mL) subcutaneous pen (Basaglar KwikPen U-100 Insulin) isosorbide mononitrate 60 mg 60 mg PO DAILY 12/27/23 02/20/24 tablet,extended release 24 hr metoprolol succinate 200 mg 200 mg PO DAILY 12/27/23 02/20/24 tablet,extended release 24 hr semaglutide 1 mg/dose (4 mg/3 mL) 1 mg subcut .weekly 12/27/23 02/21/24 subcutaneous pen injector (Ozempic) carvedilol 25 mg tablet 25 mg PO DAILY 02/20/24 02/20/24 potassium chloride 20 mEq 40 meq PO BID 02/20/24 02/21/24 tablet,extended release(part/cryst) rosuvastatin 40 mg tablet 40 mg PO HS 02/20/24 02/20/24 Previous Rx's ?Medication ?Instructions ?Recorded hydrocortisone 2.5 % topical cream 1 applic topical BID PRN #30 grams 09/14/22 ammonium lactate 12 % lotion 1 applic topical BID #225 grams 04/01/23 cyclobenzaprine 10 mg tablet 10 mg PO HS PRN muscle spasm #20 12/27/23 tabs doxycycline hyclate 100 mg capsule 100 mg PO BID #10 caps 02/21/24 Allergies Allergy/AdvReac Type Severity Reaction Status Date / Time lisinopril Allergy Mild Cough Verified 03/05/24 12:34 metformin AdvReac Verified 03/05/24 12:34 [facility] Medical History Anemia in chronic kidney disease (CKD) ?N18.9 - Chronic kidney disease, unspecified (ICD-10) ?D63.1 - Anemia in chronic kidney disease (ICD-10) Chronic kidney disease (CKD), stage IV (severe) ?N18.4 - Chronic kidney disease, stage 4 (severe) (ICD-10) DISH (diffuse idiopathic skeletal hyperostosis) ?M48.10 - Ankylosing hyperostosis [[place]], site unspecified (ICD-10) Edema ?R60.9 - Edema, unspecified (ICD-10) Neuropathy ?G62.9 - Polyneuropathy, unspecified (ICD-10) Learning disability ?F81.9 - Developmental disorder of scholastic skills, unspecified (ICD-10) Insomnia ?G47.00 - Insomnia, unspecified (ICD-10) Metabolic syndrome ?E88.810 - Metabolic syndrome (ICD-10) Sensorineural hearing loss (SNHL) of both ears ?H90.3 - Sensorineural hearing loss, bilateral (ICD-10) Tinnitus ?H93.19 - Tinnitus, unspecified ear (ICD-10) Hypercholesterolemia ?E78.00 - Pure hypercholesterolemia, unspecified (ICD-10) Insulin dependent diabetes mellitus Recurrent deep vein thrombosis (DVT) ?I82.409 - Acute embolism and thrombosis of unspecified deep veins of unspecified lower extremity (ICD-10) Hypertension ?I10 - Essential (primary) hypertension (ICD-10) Coronary artery disease ?I25.10 - Atherosclerotic heart disease of [place] coronary artery without angina pectoris (ICD-10) Hypertriglyceridemia ?E78.1 - Pure hyperglyceridemia (ICD-10) Epilepsy ?G40.909 - Epilepsy, unspecified, not intractable, without status epilepticus (ICD-10) TASHI on CPAP ?G47.33 - Obstructive sleep apnea (adult) (pediatric) (ICD-10) ?Z99.89 - Dependence on other enabling machines and devices (ICD-10) Tachypnea ?R06.82 - Tachypnea, not elsewhere classified (ICD-10) Fever ?R50.9 - Fever, unspecified (ICD-10) CKD (chronic kidney disease) ?N18.9 - Chronic kidney disease, unspecified (ICD-10) Gout ?M10.9 - Gout, unspecified (ICD-10) Major depressive disorder ?F32.9 - Major depressive disorder, single episode, unspecified (ICD-10) Type 2 diabetes mellitus ?E11.9 - Type 2 diabetes mellitus without complications (ICD-10) Obesity ?E66.9 - Obesity, unspecified (ICD-10) Surgical History History of cholecystectomy ?Z90.49 - Acquired absence of other specified parts of digestive tract (ICD-10) Social History Narrative: Lives in a retirement in [place], [place]. Sisters Brittany Suggs ([phone]) and Blanka Mcduffie ([phone]) listed as contacts and medical decision makers. Paperwork from retirement indicates Full Code status. What is your current living situation?: I presently have a place to live Problems where you live: no known problems Problems where you live details: none In the past 12 months, utilities in danger of being shut off: no In past 12 months, lack of transportation kept you from medical appts, meetings, work, or getting things needed for daily living: no In the past 12 mos, have been you worried that your food would run out before you had money to buy more?: never true In the past 12 mos, the food you bought just didn't last and you didn't have money to buy more?: never true Highest level of school completed/degree received: 12th grade, no diploma Smoking Status: Never smoker Do you use any of these nicotine containing products: None Second hand tobacco smoke exposure: No How often do you have a drink containing alcohol: never How often do you have six or more drinks on one occasion: Never AUDIT-C Alcohol total score: 0 Non-prescribed substance use: denies use Caffeine: No How often does anyone, including family, friends and others, physically hurt you: never How often does anyone, including family, friends and others, insult or talk down to you: never How often does anyone, including family, friends and others, threaten you with harm: never How often does anyone, including family, friends and others, scream or curse at you: never service: No Exam Narrative: Exam Narrative: General: Morbidly obese, no acute distress Head: Atraumatic and normocephalic Eyes: Pupils are equal reactive, extraocular motions intact, conjunctiva clear ENT: External nose and ears are normal, posterior pharynx without erythema or exudate Neck: No midline cervical tenderness, full spontaneous range of motion the neck, trachea midline, no adenopathy Heart: Regular rate and rhythm no murmurs or thrills Lungs: Clear to auscultation bilaterally without wheezes or crackles Abdomen: Soft, nontender, nondistended with active bowel sounds Musculoskeletal: No tenderness, deformity, or edema. Patient with mild bilateral SI tenderness and some tenderness of the tip of the coccyx. Examination of the skin does not demonstrate any ulcerations, erythema, or induration. No tenderness to soft tissue palpation, mild tenderness to deep palpation at the tip of the coccyx. Neurologic: Awake, alert, and oriented x3, no gross focal neurologic deficits, cranial nerves intact as tested Psych: Mood and affect are appropriate Skin: No rashes. Const: Vital Signs, click to edit/add: Vital Signs - 24 hr 03/06/24 05:43 Temperature 98.6 F Pulse Rate [Right Pulse Oximeter] 80 Respiratory Rate 18 Blood Pressure [Ri ght Upper Arm] 105/36 L Pulse Oximetry 93 Oxygen Delivery Me thod Room Air Course Course ED Course: Patient seen and examined, complains of pain in the low back and buttock. Reviewed most recent emergency department visit from yesterday when patient was seen with chest pain and hyperglycemia. Also notes that patient has he physical therapy appointment on March 09 for back pain. Patient presents today with tailbone pain that is worse with sitting starting last night. On exam here, mild tenderness to palpation along the SI joints bilaterally and mild tenderness at the tip of the coccyx with deep palpation. No tenderness with palpation of the soft tissues and No overlying skin changes, induration, erythema, ulcerations to suggest decubitus ulcer, pilonidal cyst or abscess, or perirectal abscess or cellulitis. No fall to suggest need for x-ray or CT to evaluate for fracture. Patient will be given oxycodone in the emergency department and anticipate discharge. Reevaluation(s) Time of Reevaluation #1: 06:11 Reevaluation #1: Reviewed records from patient's most recent visits, has had hyperglycemia along with leukocytosis, dropped his hemoglobin from 14.2 on March 03-12.7 yesterday although it appears patient's baseline is closer to 12 to 13. CRP also was slightly elevated at prior visit. Labs are ordered and anticipate discharge. Time of Reevaluation #2: 06:52 Reevaluation #2: Labs ordered and independently interpreted by me with normal CBC, normal basic panel other than mild hyponatremia and hyperglycemia which may be contributing to hyponatremia. Patient stable for discharge with continued outpatient follow-up. Time of Reevaluation #3: 06:59 Reevaluation #3: Labs independently interpreted by me with up trending CRP of undetermined significance. Again, no soft tissue tenderness, induration, masses, or skin changes in the area of pain to suggest infectious process. Clinical the patient is stable for discharge with outpatient follow-up. Vital Signs Vital signs: Initial Vital Signs Temperature 98.6 F 03/06/24 05:43 Temperature Source Temporal Artery Scan 03/06/24 05:43 Pulse Rate 80 03/06/24 05:43 Pulse Rhythm Regular 03/06/24 05:43 Respiratory Rate 18 03/06/24 05:43 Blood Pressure 105/36 L 03/06/24 05:43 Blood Pressure Mean 59 L 03/06/24 05:43 Blood Pressure Position Right Lateral 03/06/24 05:43 Pulse Oximetry 93 03/06/24 05:43 Oxygen Delivery Method Room Air 03/06/24 05:43 Vital Signs Temperature 98.6 F 03/06/24 05:43 Pulse Rate 80 03/06/24 05:43 Respiratory Rate 18 03/06/24 05:43 Blood Pressure 105/36 L 03/06/24 05:43 Pulse Oximetry 93 03/06/24 05:43 Oxygen Delivery Method Room Air 03/06/24 05:43 Temperature 98.6 F 03/06/24 05:43 Pulse Rate 80 03/06/24 05:43 Respiratory Rate 18 03/06/24 05:43 Blood Pressure 105/36 L 03/06/24 05:43 Pulse Oximetry 93 03/06/24 05:43 Oxygen Delivery Method Room Air 03/06/24 05:43 Medications Administered Medications: Discontinued Medications Generic Name Dose Route Start Last Admin Trade Name Freq PRN Reason Stop Dose Admin Oxycodone HCl 5 mg 03/06/24 06:07 03/06/24 06:25 Oxycodone 5 Mg Tablet PO 03/06/24 06:08 5 mg ONCE ONE Administration MDM - Back Pain/Injury Lab Data Labs: Lab Results 03/06/24 Range/Units 06:15 WBC 6.69 (4.50-11.00) K/uL RBC 4.34 (4.30-5.90) m/uL Hgb 12.4 L (13.5-17.5) gm/dL Hct 36.5 L (37.0-53.0) % MCV 84 (80-100) fL MCH 29 (26-34) pg MCHC 34 (32-36) gm/dL RDW Coeff of Kaylen 14.2 (11.5-15.5) % Plt Count 172 (140-440) K/uL Neut % (Auto) 78.8 H (42.0-72.0) % Lymph % (Auto) 10.3 L (20-44) % Rooks % (Auto) 6.3 (0.0-11.0) % Eos % (Auto) 4.2 (0.0-7.0) % Baso % (Auto) 0.3 (0.0-3.0) % Neut # (Auto) 5.30 (1.7-7.0) K/uL Lymph # (Auto) 0.70 L (0.90-2.90) K/uL Rooks # (Auto) 0.40 (0.00-0.90) K/UL Eos # (Auto) 0.28 (0.00-0.50) K/uL Baso # (Auto) 0.02 (0.00-0.30) K/uL Abs Immat Gran (auto) 0.01 (0.00-0.30) K/uL Imm/Tot Granulo (auto) 0.1 % Sodium 131 L (135-149) mmol/L Potassium 3.6 (3.6-5.1) mmol/L Chloride 89 L (96-114) mmol/L Carbon Dioxide 30 (20-32) mmol/L Anion Gap 12 (7-15) mEq/L BUN 31 H (7-30) mg/dL Creatinine 1.2 (0.5-1.5) mg/dL Estimated Creat Clear 56.12 Estimated GFR 68 ml/min Glucose 295 H (60-115) mg/dL Calcium 8.6 (8.4-10.6) mg/dL C-Reactive Protein 18.7 H (0.5-1.0) mg/dL Discharge Plan Discharge Clinical Impression: Acute coccygeal pain Patient Disposition: Home, Self-Care Condition: Stable Instructions: Back Pain (ED) Additional Instructions: Take Tylenol as needed for pain Ice or heat as needed for comfort Activity Level: Activity as Tolerated Discharge Diet: Regular Prescriptions: No Action amlodipine 10 mg tablet 10 mg PO DAILY aripiprazole 15 mg tablet 7.5 mg PO DAILY Eliquis 5 mg tablet 5 mg PO BID aspirin 81 mg tablet,delayed release (DR/EC) 81 mg PO DAILY venlafaxine 75 mg capsule,extended release 24hr 225 mg PO DAILY torsemide 20 mg tablet 20 mg PO DAILY chlorthalidone 25 mg tablet 25 mg PO DAILY carbamazepine 200 mg tablet 200 mg PO BID pantoprazole 40 mg tablet,delayed release (DR/EC) 40 mg PO DAILY hydralazine 50 mg tablet 50 mg PO QID Patient Comments: 08,12,16,20 ezetimibe 10 mg tablet 10 mg PO DAILY pregabalin 100 mg capsule 100 mg PO QAM pregabalin 150 mg capsule 150 mg PO HS polyethylene glycol 3350 17 gram/dose powder 17 g PO DAILY Rx Instructions: AND TWICE DAILY NEEDED sennosides [senna] 8.6 mg tablet 8.6 mg PO DAILY ketoconazole 2 % shampoo 1 applic TOPICAL Q3D diphenhydramine HCl [Banophen] 50 mg capsule 50 mg PO Q6H PRN (Reason: itching) loperamide 2 mg capsule 2 mg PO Q6H PRN (Reason: loose stool) acetaminophen 500 mg tablet 500 mg PO Q6H nystatin 100,000 unit/gram powder 1 applic TOPICAL BID PRN albuterol sulfate 90 mcg/actuation HFA aerosol inhaler 1 inh INHALATION Q4H PRN (Reason: bronchospasm) icosapent ethyl [Vascepa] 1 gram capsule 2 g PO BID Humulin R U-500 (Conc) Kwikpen 500 unit/mL (3 mL) insulin pen 100 unit SUBCUT TID clotrimazole 1 % cream 1 applic topical BID Rx Instructions: GROIN,PERIAREA AND ABDOMIN ergocalciferol (vitamin D2) 1,250 mcg (50,000 unit) capsule 50,000 unit PO WE@09 hydrocortisone 2.5 % cream 1 applic topical BID PRNQty: 30 1RF ammonium lactate 12 % lotion 1 applic topical BID Qty: 225 0RF metoprolol succinate 200 mg tablet extended release 24 hr 200 mg PO DAILY isosorbide mononitrate 60 mg tablet extended release 24 hr 60 mg PO DAILY Ozempic 1 mg/dose (4 mg/3 mL) pen injector 1 mg subcut .weekly insulin glargine [Basaglar KwikPen U-100 Insulin] 100 unit/mL (3 mL) insulin pen 30 unit subcut BID cyclobenzaprine 10 mg tablet 10 mg PO HS PRN (Reason: muscle spasm) Qty: 20 0RF Rx Instructions: Muscle relaxant to use at bedtime if needed for back pain potassium chloride 20 mEq tablet,ER particles/crystals 40 meq PO BID rosuvastatin 40 mg tablet 40 mg PO HS carvedilol 25 mg Tablet 25 mg PO DAILY doxycycline hyclate 100 mg capsule 100 mg PO BID Qty: 10 0RF Follow Up/Referrals: Provider,Not a Local [Primary Care Provider] - Stand Alone Forms: [facility] Info Instructions
[2024-03-06] MEDS: OXYCODONE 5 MG TABLET PO (06:25)
[2024-03-06 06:26] LABS: Basophils Absolute Auto 0.02 K/uL (0.00-0.30); Basophils Percent Auto 0.3 % (0.0-3.0); Eosinophils Absolute Auto 0.28 K/uL (0.00-0.50); Eosinophils Percent Auto 4.2 % (0.0-7.0); Hematocrit 36.5 % (37.0-53.0); Hemoglobin* 12.4 gm/dL (13.5-17.5); Immature Granulocytes Abs Auto 0.01 K/uL (0.00-0.30); Immature Granulocytes Pct Auto 0.1 %; Lymphocytes Percent Auto 10.3 % (20-44); Mean Corpuscular HGB Conc 34 gm/dL (32-36); Mean Corpuscular Hemoglobin 29 pg (26-34); Mean Corpuscular Volume 84 fL (80-100); Monocytes Percent Auto 6.3 % (0.0-11.0); Neutrophils Percent Auto 78.8 % (42.0-72.0); Platelet Count* 172 K/uL (140-440); RDW Coefficient of Variation % 14.2 % (11.5-15.5); Red Blood Count 4.34 m/uL (4.30-5.90); White Blood Count* 6.69 K/uL (4.50-11.00)
[2024-03-06 06:33] LABS: Slide Review Reflex No
[2024-03-06 06:38] LABS: Chloride* 89 mmol/L (96-114); Potassium* 3.6 mmol/L (3.6-5.1); Sodium* 131 mmol/L (135-149)
--- OUTSIDE RECORDS SUMMARY | 2024-03-06 06:38 | XMS_ITS | CCD ---
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 U-100 Insulin 100 unit/mL (3 mL) subcutaneous pen RxNorm: 472795 Inject 150 Unit(s) Subcutaneous BID 09/04/19 21 022 Inactive venlafaxine ER 150 mg tablet,extended release 24 hr RxNorm: 074735 Take 1 Tablet(s) Oral QD 09/04/19 021 Inactive clotrimazole-betame thasone 1 %-0.05 % topical cream RxNorm: 722891 Apply to rash on red area on left abdomen/chest Topical BID 08/10/19 21 021 Inactive amlodipine 5 mg tablet RxNorm: 934881 Take 1 Tablet(s) Oral QD 07/31/19 21 021 Inactive cephalexin 500 mg tablet RxNorm: 627803 Take 1 Tablet(s) Oral BID BID - Twice Daily 07/31/19 21 021 Inactive Start 08/01/20 pantoprazole 40 mg tablet,delayed release RxNorm: 423034 Take 1 Tablet(s) Oral QAM every morning 07/08/19 21 022 Inactive senna 8.6 mg tablet RxNorm: 288582 Take 1 Tablet(s) Oral QD 07/08/19 21 022 Inactive carbamazepine 200 mg tablet RxNorm: 504053 Take 1 Tablet(s) Oral BID 07/08/19 21 022 Inactive clopidogrel 75 mg tablet RxNorm: 088171 Take 1 Tablet(s) Oral QD 07/08/19 21 021 Inactive Blood Glucose Test strips RxNorm: Use 1 Test Strip QID at PRN 07/08/19 21 Inactive E11.42 Novolog Flexpen U-100 Insulin aspart 100 unit/mL (3 mL) subcutaneous RxNorm: 8540573 Administer per sliding scale Milliliter(s) Subcutaneous TID 151-200: 10 u; 201-250: 20 u; 251-300: 30 u; 301-350: 40 u; 351-400: 50 u. 07/08/19 21 022 Inactive lisinopril 5 mg tablet RxNorm: 618262 Take 1 Tablet(s) Oral QD 07/08/19 Inactive Novolog Flexpen U-100 Insulin aspart 100 unit/mL (3 mL) subcutaneous RxNorm: 8314550 Inject 85 Unit(s) Subcutaneous TID 07/08/19 022 Inactive pravastatin 80 mg tablet RxNorm: 135816 Take 1 Tablet(s) Oral QHS every night at bedtime 07/08/19 023 Inactive clotrimazole 1 % topical cream RxNorm: 787340 Apply to bilateral groin areas Topical BID 07/08/19 022 Inactive metoprolol succinate ER 200 mg tablet,extended release 24 hr RxNorm: 737799 Take 1 Tablet(s) Oral QD 07/08/19 21 021 Inactive Vitamin D3 25 mcg (1,000 unit) tablet RxNorm: 818703 Take 1 Tablet(s) Oral QD 07/08/19 21 021 Inactive isosorbide dinitrate 30 mg tablet RxNorm: 935383 Take 1 Tablet(s) Oral QD 07/08/19 21 021 Inactive Levemir FlexTouch U-100 Insulin 100 unit/mL (3 mL) subcutaneous pen RxNorm: 541111 Inject 140 Unit(s) Subcutaneous BID 07/08/19 21 021 Inactive torsemide 20 mg tablet RxNorm: 068566 Take 1 Tablet(s) Oral QD 07/08/19 21 023 Inactive venlafaxine 75 mg tablet RxNorm: 615059 Take 1 Tablet(s) Oral QD 07/08/19 21 021 Inactive acetaminophen 500 mg tablet RxNorm: 153852 Take 1 Tablet(s) Oral TID as needed for headache 06/18/19 21 021 Inactive acetaminophen 500 mg tablet RxNorm: 045045 Take 1 Tablet(s) Oral TID as needed for headache 06/18/19 21 021 Inactive Lyrica 100 mg capsule RxNorm: 096228 Take 1 Capsule(s) Oral QHS every night at bedtime 06/11/19 21 021 Inactive Lyrica 50 mg capsule RxNorm: 090342 Take 1 Capsule(s) Oral QAM every morning 06/10/19 21 021 Inactive hydrocortisone 2.5 % topical cream RxNorm: 134662 Apply to bilateral groin creases Topical BID 05/15/20 20 021 Inactive clotrimazole 1 % topical cream RxNorm: 791066 Apply to bilateral groin areas Topical BID 05/15/20 20 021 Inactive Lyrica 50 mg capsule RxNorm: 290016 Take 1 Capsule(s) Oral QAM every morning 05/14/20 20 020 Inactive Lyrica 100 mg capsule RxNorm: 633310 Take 1 Capsule(s) Oral QHS every night [...] Inactive Nystop 100,000 unit/gram topical powder RxNorm: 359057 Apply to abd folds, under breasts and L side of groin Topical BID x 14 days, then BID PRN 04/08/20 20 Inactive dx: yeast dermatitis Lyrica 100 mg capsule RxNorm: 971008 Take 1 Capsule(s) Oral QHS every night at bedtime 03/13/20 20 Inactive Lyrica 50 mg capsule RxNorm: 974472 Take 1 Capsule(s) Oral QAM every morning 03/13/20 20 Inactive ketoconazole 2 % shampoo RxNorm: 875970 Apply Topical two times a week with showers 03/11/20 20 Inactive cholecalciferol (vitamin D3) 50 mcg (2,000 unit) tablet RxNorm: 172091 Take 1 Tablet(s) Oral QD 03/11/20 20 021 Inactive Zetia 10 mg tablet RxNorm: 924324 Take 1 Tablet(s) Oral QD 03/07/20 20 021 Inactive Zetia 10 mg tablet RxNorm: 929069 Take 1 Tablet(s) Oral QD 03/07/20 20 Inactive Lyrica 50 mg capsule RxNorm: 253709 Take 1 Capsule(s) Oral QAM every morning 02/15/20 20 Inactive Lyrica 100 mg capsule RxNorm: 924199 Take 1 Capsule(s) Oral QHS every night at bedtime 02/15/20 20 Inactive Lyrica 100 mg capsule RxNorm: 878434 Take 1 Capsule(s) Oral QHS every night at bedtime 02/15/20 20 Inactive Lyrica 50 mg capsule RxNorm: 754314 Take 1 Capsule(s) Oral QAM every morning 02/15/20 20 Inactive metoprolol succinate ER 200 mg tablet,extended release 24 hr RxNorm: 869375 Take 1 Tablet(s) Oral QD 08/12/19 23 Active loperamide 2 mg capsule RxNorm: 151020 Take 1 Capsule(s) Oral QID as needed 06/12/19 22 Active hydralazine 50 mg tablet RxNorm: 400352 Take 1 Tablet(s) Oral QID 08/12/19 23 Active Soft Touch Lancets RxNorm: miscellaneous 03/04/20 24 Active venlafaxine ER 75 mg capsule,extended release 24 hr RxNorm: 617585 Take 3 Capsule(s) Oral QD 06/12/19 22 023 Inactive polyethylene glycol 3350 17 gram/dose oral powder RxNorm: 625840 Take 17=1 capful Gram(s) Oral BID as needed mix with 4-8oz of liquid 06/12/19 22 024 Inactive icosapent ethyl 1 gram capsule RxNorm: 5887341 Take 2 Capsule(s) (2 gm) Oral BID with meals 10/07/19 23 023 Inactive Okay to dispense one 2gm tab if you have that available. Levemir FlexTouch U-100 Insulin 100 unit/mL (3 mL) subcutaneous pen RxNorm: 156638 Inject 80 Unit(s) Subcutaneous BID 07/14/19 23 023 Inactive Novolog Flexpen U-100 Insulin aspart 100 unit/mL (3 mL) subcutaneous RxNorm: 2280138 Insert 30 Unit(s) Subcutaneous TID with meals [...] Codes Status Date Referral: [facility] WPtel: [address] , [address] [id number] Referral Records Received 09/21/2022 Referral: [facility] WPtel: [address] [id number] [place] Referral Completed 05/28/2021 Referral: General Cardiology Referral Complet ed 01/03/2021 Referral: General Psychologist Referral Close d Referral: General Psychiatrist Referral Patient/Family Scheduling Appointment Referral: General Physical Medicine Referral Facility Scheduling Appointment Instructions Comment Date Leonid is a?? Male being seen living at [facility]. Initial [facility] visit 01/2020. PMHx including DMII, CAD w/ 5 stents, Depression, Seizure Disorder and CKD stage 3. He moved into [facility] in 12/2019 but after a hospitalization 05/2021 he moved to the [facility] to have closer nursing attention.??Sister Jyotsna involved in his care cell# [phone]??Guardian: Giulia (tapan met in person 09/01/21), now [...] )??Bobbi note from 11.08.2023 at [facility] (follow up 6 months)Colon & Rectal Surgery visit scheduled for 03/08/24 with Matilde Pérez PA-C.?? 02/08/2024
--- OUTSIDE RECORDS SUMMARY | 2024-03-06 06:38 | XMS_ITS | CCD ---
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 Official Court Interpreter Name Role Phone Arpit MCKINLEY-C, [place] Primary Care Provider Leona vailable Russell DOG HANDLER OR TRAINER-C, [facility] Chronic Care Management U navailable Summary Purpose DataExchange Insurance Providers Payer name Policy type / Coverage type Covered republican ID Effective Begin Date Effective End Date [place] Part B [id number] Unknown Unknown Medicaid [place] Medicare Part B [id number] Unknown Unknown Family history Sister Brittany Suggs Diagnosis Age At Onset No Family Disease Entered N/A Runs in the family Diagnosis Age At Onset No Known Diseases N/A Sister Blanka Mcduffie Diagnosis Age At Onset No Family Disease Entered N/A Social History Social History Element Codes Description Effec tive Dates Tobacco history SNOMED CT: 772496569 Never smoker 01/16 Sexually Active? Unknown No [...] Single 10/07/2021 Living arrangements Unknown [facility] 09/03/[address]: 678929553 No Alcohol Consum ption 09/02/2020 Allergies, Adverse Reactions, Alerts Substance Reaction Codes Entered Date Inactivated Date Status * NO KNOWN FOOD ALLERGIES Unknown 07/13/2023 No Inactive Date Active LISINOPRIL RxNorm: 21047 02/12/2020 No Inactive Da te Active Metformin HCl Unknown 02/12/2020 No Inactive Cristiano e Active * NO KNOWN ENVIRONMENTAL ALLERGIES Unknown 07/13/2023 No Inactive Date Active Problems Condition Codes Effective Dates Condition St atus (G82.20) Paraparesis of both lower limbs ICD-10: G82.20 ICD-9: 344.1 03/07/2024 Active (R53.81) Physical deconditioning ICD-10: R53.81 ICD-9: 799.3 03/07/2024 Active (Z68.44) BMI 60.0-69.9, adult ICD-10: Z6 8.44 ICD-9: V85.44 03/07/2024 Active Advanced care planning - to document end of life discussions Unknown 02/08/2024 Active Advance care planning ICD-10: Z71.89 ICD-9: V65.49 02/08/2024 Active Amputated toe of right foot ICD-10: S98. 131A ICD-9: 895.0 02/08/2024 Active Annual physical exam ICD-10: Z00.00 ICD-9: V70.0 02/08/2024 Active Candidal intertrigo ICD-10: B37.2 ICD-9: [...] Onychogryposis ICD-10: L60.2 ICD-9: 703.8 02/08/2024 Active Pressure ulcer of left calf, [...] 09/07/2023 Resolved Coronary artery disease invo lving [place] coronary artery of [place] heart, angina presence unspecified ICD-10: I25.10 ICD-9: [...] PRN) to be use with new Accu [place] meter 03/04/20 Active ok to substitute with any covered alternative test strip Accu-Chek Guide Glucose Meter RxNorm: Use 1 Miscellaneous UD as directed Use glucose meter to monitor blood glucose 4 times daily and as needed. Dx:E11.42 03/04/20 Inactive nystatin 100,000 unit/gram topical powder RxNorm: 467984 Apply 1 Application Topical BID as needed [...] 024 Inactive Pen Needle 30 gauge x 516 RxNorm: Pen(s) Use 1 needle as directed TID 03/02/20 24 024 Inactive Accu-Chek Guide test strips RxNorm: Use 1 Test Strip QID 03/02/20 24 024 Inactive ok to substitute with any covered alternative test strip Humulin R U-500 (Concentrated) Insulin 500 unit/mL subcutaneous soln RxNorm: 809058 Inject 100 Unit(s) Subcutaneous TID 02/17/20 24 025 Active Basaglar KwikPen U-100 Insulin 100 unit/mL (3 mL) subcutaneous RxNorm: 5550796 Inject 30 Unit(s) Subcutaneous BID 02/10/20 24 024 Active Please dispense one month supply. Humulin R U-500 (Concentrated) Insulin 500 unit/mL subcutaneous soln RxNorm: 529256 Inject 100 Unit(s) Subcutaneous TID 02/10/20 24 024 Inactive pregabalin 100 mg capsule RxNorm: 579522 Take 1 Capsule(s) Oral QAM every morning 02/07/20 24 024 Active isosorbide mononitrate ER 60 mg tablet,extended release 24 hr RxNorm: 920644 Take 1 Tablet(s) Oral QD 02/01/20 24 025 Active aripiprazole 15 mg tablet RxNorm: 218120 Take 1/2 Tablet(s) Oral QD 02/01/20 24 025 Active torsemide 20 mg tablet RxNorm: 778217 1 TAB ORALLY DAILY (DX: EDEMA) 01/27/20 No Stop Date Active potassium chloride ER 20 mEq tablet,extended release(part/cryst) RxNorm: 4674914 2 TABS (40MEQ) ORALLY TWICE DAILY (DX: HYPOKALEMIA) 01/27/20 No Stop Date Active cephalexin 500 mg capsule RxNorm: 690592 Take 1 Capsule(s) Oral QID 12/17/19 24 Inactive cephalexin 500 mg capsule RxNorm: 200613 Take 1 Capsule(s) Oral QID 12/17/19 24 Inactive acetaminophen 500 mg tablet RxNorm: 902647 (MAX APAP:4GM/24HR) Take 1 Tablet(s) Oral TID as needed for pain 12/10/19 24 Active torsemide 20 mg tablet RxNorm: 363414 Take 1 Tablet(s) Oral QD 10/26/19 24 024 Inactive potassium chloride ER 20 mEq tablet,extended release RxNorm: 19800522 Take 2 Tablet(s) Oral BID 10/26/19 24 Active torsemide 20 mg tablet RxNorm: 284426 Take 1 Tablet(s) Oral QD 10/26/19 24 Inactive potassium chloride ER 20 mEq tablet,extended release RxNorm: 19800522 Take 2 Tablet(s) Oral BID 10/26/19 24 Inactive Artificial Tears (PF) 0.1 %-0.3 % drops in a dropperette RxNorm: 498450 Apply 1-2 Drop(s) Both eyes BID as needed 09/28/19 24 Active erythromycin 5 mg/gram (0.5 %) eye ointment RxNorm: 716593 Apply 1 Application Both eyes QHS every night at bedtime Instill ~1 cm ribbon into affected eye 09/28/19 24 Inactive Artificial Tears (PF) 0.1 %-0.3 % drops in a dropperette RxNorm: 443379 Apply 1-2 Drop(s) Both eyes BID as needed 09/28/19 24 Inactive erythromycin 5 mg/gram (0.5 %) eye ointment RxNorm: 479909 Apply 1 Application Both eyes QHS every night at bedtime Instill ~1 cm ribbon into affected eye 09/28/19 24 Inactive acetaminophen 500 mg tablet RxNorm: 352417 (MAX APAP:4GM/24HR) Take 1 Tablet(s) Oral TID as needed for pain 09/24/19 24 05/10/2 024 Inactive carvedilol 25 mg tablet RxNorm: 174604 Take 1 Tablet(s) Oral QD 09/08/19 24 No Stop Date Active pregabalin 100 mg capsule RxNorm: 216739 Take 1 Capsule(s) Oral QAM every morning 09/07/19 24 024 Inactive rosuvastatin 40 mg tablet RxNorm: 307638 Take 1 Tablet(s) Oral QPM every evening 07/13/19 24 No Stop Date Active ezetimibe 10 mg tablet RxNorm: 436922 Take 1 Tablet(s) Oral QD 07/13/19 24 No Stop Date Active bisacodyl 10 mg rectal suppository RxNorm: 570889 Insert 1 Suppository Rectal QD as needed 07/13/19 24 No Stop Date Active polyethylene glycol 3350 17 gram/dose oral powder RxNorm: 530644 Take 17 Gram(s) Oral BID as needed mix in 4-8ox water 07/13/19 24 No Stop Date Active ketoconazole 2 % shampoo RxNorm: 865204 Apply 1 Application Topical UD as directed 07/13/19 24 No Stop Date Active Ozempic 1 mg/dose (4 mg/3 mL) subcutaneous pen injector RxNorm: 8394366 Inject 1 Milligram(s) Subcutaneous QW once a week 07/13/19 24 No Stop Date Active Guaifenesin AC 10 mg-100 mg/5 mL oral liquid RxNorm: 959505 Take 10 Milliliter(s) Oral Q4H every four hours as needed 07/13/19 24 No Stop Date Active ammonium lactate 12 % topical cream RxNorm: 120420 Apply 1 Application Topical BID 07/13/19 24 No Stop Date Active hydrocortisone 2.5 % topical cream RxNorm: 272236 Apply 1 Application Topical BID as needed 07/13/19 24 No Stop Date Active rosuvastatin 20 mg sprinkle capsule RxNorm: 3808643 Take 1 Capsule(s) Oral QD 07/13/19 24 No Stop Date Active Vascepa 1 gram capsule RxNorm: 9763173 Take 2 Capsule(s) Oral BID 07/13/19 24 No Stop Date Active venlafaxine ER 75 mg capsule,extended release 24 hr RxNorm: 375399 Take 3 Capsule(s) Oral QD 07/13/19 24 No Stop Date Active aripiprazole 15 mg tablet RxNorm: 645238 Take 1/2 Tablet(s) Oral QD 07/13/19 24 024 Inactive isosorbide mononitrate ER 60 mg tablet,extended release 24 hr RxNorm: 658341 Take 1 Tablet(s) Oral QD 07/13/19 24 024 Inactive Basaglar KwikPen U-100 Insulin 100 unit/mL (3 mL) subcutaneous RxNorm: 1570763 Inject 30U SubQ twice daily 07/07/19 24 024 Inactive Please dispense one month supply. Basaglar KwikPen U-100 Insulin 100 unit/mL (3 mL) subcutaneous RxNorm: 9282796 Inject 30U SubQ twice daily 07/07/19 24 024 Inactive Please dispense one month supply. pregabalin 150 mg capsule RxNorm: 970978 Take 1 Capsule(s) Oral QHS every night at bedtime 07/05/19 24 024 Inactive pregabalin 150 mg capsule RxNorm: 297577 Take 1 Capsule(s) Oral QHS every night at bedtime 07/05/19 24 024 Inactive polyethylene glycol 3350 17 gram/dose oral powder RxNorm: 238473 Take 1 Packet Oral QD as needed (1 packet = 17g) mix with 4-8oz of liquid 06/15/19 24 024 Inactive bisacodyl 10 mg rectal suppository RxNorm: 030873 Insert one suppository per rectum once daily as needed for constipation 06/15/19 24 024 Inactive bisacodyl 10 mg rectal suppository RxNorm: 407017 Insert one suppository per rectum once daily as needed for constipation 06/15/19 24 024 Inactive pregabalin 100 mg capsule RxNorm: 472923 Take 1 Capsule(s) Oral QAM every morning 04/27/20 23 024 Inactive Levemir FlexPen 100 unit/mL (3 mL) solution subcutaneous insulin pen RxNorm: 253445 Inject 30 Unit(s) Subcutaneous BID 04/27/20 23 024 Inactive rosuvastatin 40 mg tablet RxNorm: 641535 Take 1 Tablet(s) Oral QPM every evening 04/16/20 23 024 Inactive D/C rosuvastatin 20mg venlafaxine ER 75 mg capsule,extended release 24 hr RxNorm: 702626 Take 3 Capsule(s) Oral QD 04/14/20 023 Inactive pregabalin 100 mg capsule RxNorm: 033183 Take 1 Capsule(s) Oral QAM every morning [...] strip clotrimazole 1 % topical cream RxNorm: 418542 Take apply topically to abdominal folds twice daily for 14 days 03/12/20 024 Inactive Ozempic 1 mg/dose (4 mg/3 mL) subcutaneous pen injector RxNorm: 8559285 Inject 1 Milligram(s) Subcutaneous QW once a week 03/11/20 023 Inactive rosuvastatin 20 mg tablet RxNorm: 561985 Take 1 Tablet(s) Oral QD 02/26/20 23 023 Inactive d/c pravastatin 80mg Ozempic 1 mg/dose (4 mg/3 mL) subcutaneous pen injector RxNorm: 9594642 Inject 1 Milligram(s) Subcutaneous QW once a week 02/20/20 23 023 Inactive pregabalin 150 mg capsule RxNorm: 358241 Take 1 Capsule(s) Oral HS at bed time 02/19/20 23 023 Inactive pregabalin 100 mg capsule RxNorm: 619455 Take 1 Capsule(s) Oral QAM every morning 02/18/20 23 023 Inactive venlafaxine ER 75 mg capsule,extended release 24 hr RxNorm: 030760 Take 3 Capsule(s) Oral QD 02/04/20 23 023 Inactive FreeStyle Chema 2 Sensor kit RxNorm: use as directed 02/04/20 23 023 Inactive FreeStyle Chema 2 Sensor kit RxNorm: use as directed 02/04/20 23 024 Inactive fluconazole 150 mg tablet RxNorm: 180877 Take 1 Tablet(s) Oral on day 3 and on day 6 02/03/20 024 Inactive chlorthalidone 25 mg tablet RxNorm: 841253 Take 1 Tablet(s) Oral QAM every morning 02/03/20 No Stop Date Active venlafaxine ER 150 mg capsule,extended release 24 hr RxNorm: 042573 Take 1 Capsule(s) Oral QD 02/03/20 023 Inactive acetaminophen 500 mg tablet RxNorm: 821357 1 TABLET ORALLY 3 TIMES DAILY (MAX APAP:4GM/24HR) 12/15/19 23 023 Inactive clotrimazole 1 % topical cream RxNorm: 208441 apply 1g topically to top of feet and in between toes BID 12/09/19 23 023 Inactive potassium chloride ER 20 mEq tablet,extended release RxNorm: 733118 Take 1 Tablet(s) Oral BID 12/09/19 23 024 Inactive d/c 20mEq once daily (sent from hospital) nystatin 100,000 unit/gram topical powder RxNorm: 249181 APPLY TO AFFECTED AREAS TOPICALLY 2 TIMES DAILY 11/21/19 23 023 Inactive Nystop 100,000 unit/gram topical powder RxNorm: 164822 Apply to abd folds, under breasts and L side of groin Topical BID x 14 days, then BID PRN 11/20/19 23 023 Inactive dx: yeast dermatitis [place] Ultra Strength 4 %-30 %-10 % topical cream RxNorm: 454103 Apply 1 Gram(s) Topical QID PRN to feet and legs for neuropathic pain 11/11/19 23 024 Inactive clotrimazole 1 % topical cream RxNorm: 856965 Apply 1/2 Gram(s) Topical BID Apply to affected areas of groin, periarea, and abdominal topically 2 times daily 11/10/19 23 023 Inactive hydrocortisone 2.5 % topical cream RxNorm: 992275 Apply 1/2 Gram(s) Topical BID as needed 11/10/19 024 Inactive Levemir FlexPen 100 unit/mL (3 mL) solution subcutaneous insulin pen RxNorm: 616219 Inject 30 Unit(s) Subcutaneous BID 10/07/19 023 Inactive Humulin R U-500 (Concentrated) Insulin 500 unit/mL subcutaneous soln RxNorm: 008805 Inject 100 Unit(s) Subcutaneous TID 10/07/19 024 Inactive Ozempic 0.25 mg or 0.5 mg (2 mg/3 mL) subcutaneous pen injector RxNorm: 3604427 Inject 1/2 Milligram(s) Subcutaneous QW once a week 10/07/19 024 Inactive aripiprazole 15 mg tablet RxNorm: 219558 1/2 TAB (7.5MG) ORALLY DAILY (DX:MAJOR DEPRESSIVE DISORDER) 09/23/19 23 023 Inactive Accu-Chek Guide test strips RxNorm: Use 1 Test Strip QID 09/15/19 23 023 Inactive ok to substitute with any covered alternative test strip Lancets,Thin 28 gauge RxNorm: Use 1 as directed QID 09/15/19 23 023 Inactive torsemide 20 mg tablet RxNorm: 482689 Take 1 Tablet(s) Oral BID 09/09/19 024 Inactive d/c once daily dosing carvedilol 25 mg tablet RxNorm: 879159 Take 1 Tablet(s) Oral QD 08/25/19 024 Inactive pregabalin 150 mg capsule RxNorm: 724283 1 Capsule(s) Oral HS at bed time 08/18/19 023 Inactive pregabalin 100 mg capsule RxNorm: 994439 1 Capsule(s) Oral QAM every morning 08/18/19 023 Inactive carvedilol 25 mg tablet RxNorm: 373137 1 Tablet(s) Oral QD 07/28/19 23 023 Inactive lisinopril 20 mg tablet RxNorm: 560876 Give 1 Tablet(s) Oral QD 07/28/19 23 023 Inactive Lyrica 150 mg capsule RxNorm: 661171 Take 1 Capsule(s) Oral QHS every night at bedtime 07/19/19 23 023 Inactive d/c 100mg dose Diflucan 150 mg tablet RxNorm: 280466 Take 1 Tablet(s) Oral QD repeat on day 3 and 6 07/19/19 23 023 Inactive pregabalin 100 mg capsule RxNorm: 228657 Take 1 Capsule(s) Oral QAM every morning 07/19/19 23 023 Inactive gatifloxacin 0.5 % eye drops RxNorm: 320937 Instill 1 Drop(s) as directed TID Instill 1 drop in to affected eye(s) starting 1 day prior to surgery and continue until gone (do not exceed 4 weeks). 07/13/19 23 023 Inactive carvedilol 25 mg tablet RxNorm: 735455 2 Tablet(s) Oral BID 07/13/19 23 023 Inactive Humulin R Regular U-100 Insulin 100 unit/mL injection solution RxNorm: 805975 85 Unit(s) Injection TID 07/13/19 23 023 Inactive ketorolac 0.5 % eye drops RxNorm: 547140 Instill 1 Drop(s) as directed QID Instill 1 drop into affected eye(s) 4 times daily starting 1 day prior to surgery and continue until gone (do not exceed 4 weeks). 07/13/19 23 023 Inactive Diflucan 150 mg tablet RxNorm: 122576 Take 1 Tablet(s) Oral QD repeat on day 3 and 6 06/30/19 23 023 Inactive Accu-Chek Guide test strips RxNorm: Use 1 Test Strip QID Use 1 test strip to monitor blood glucose 4 times daily and as needed. Dx:E11.42. 06/23/19 23 023 Inactive ok to substitute with any covered alternative test strip dextromethorphan-gu aifenesin 10 mg-100 mg/5 mL oral liquid RxNorm: 695515 Take 10 Milliliter(s) Oral every 4 hours as needed for cough 06/19/19 023 Inactive dextromethorphan-gu aifenesin 10 mg-100 mg/5 mL oral liquid RxNorm: 657118 Take 10 Milliliter(s) Oral every 4 hours as needed for cough 06/19/19 023 Inactive Lyrica 150 mg capsule RxNorm: 336645 Take 1 Capsule(s) Oral QHS every night at bedtime 06/18/19 023 Inactive d/c 100mg dose aripiprazole 15 mg tablet RxNorm: 168481 05/18 TAB (7.5MG) ORALLY DAILY (DX:MAJOR DEPRESSIVE DISORDER) 06/05/19 023 Inactive pregabalin 100 mg capsule RxNorm: 218297 1 Capsule(s) Oral QAM every morning 06/02/19 023 Inactive Banophen 50 mg capsule RxNorm: 6259057 Take 1 Capsule(s) Oral Q6H every 6 hours as needed 05/19/19 23 No Stop Date Active Novolog Flexpen U-100 Insulin aspart 100 unit/mL (3 mL) subcutaneous RxNorm: 5061794 Inject 10 Unit(s) Subcutaneous QHS every night at bedtime with nighttime snack 04/08/20 022 Inactive Novolog Flexpen U-100 Insulin aspart 100 unit/mL (3 mL) subcutaneous RxNorm: 6918685 Inject 42 Unit(s) Subcutaneous TID in addition to sliding scale 04/08/20 022 Inactive d/c 36u albuterol sulfate HFA 90 mcg/actuation aerosol inhaler RxNorm: 9339331 Take 2 Puff(s) Inhalation Q4H every four hours as needed as needed for SOB, cough, or wheezing 04/07/20 030 Active Banophen 50 mg capsule RxNorm: 7292902 Take 1 Capsule(s) Oral Q6H every 6 hours as needed 04/06/20 023 Inactive diphenhydramine 50 mg tablet RxNorm: 4454750 Take 1 Tablet(s) Oral Q6H every 6 hours as needed 04/06/20 22 022 Inactive diphenhydramine 50 mg tablet RxNorm: 7771356 1 Tablet(s) Oral Q6H every 6 hours as needed 04/06/20 22 022 Inactive Abilify 15 mg tablet RxNorm: 980197 1/2 Tablet(s) Oral QD 03/10/20 22 023 Inactive Shingrix (PF) 50 mcg/0.5 mL intramuscular suspension, kit RxNorm: 9298890 Administer 1/2 Milliliter(s) Intramuscular QD one time shingrix step 2 ( step 1 given 11/04/21) WITH needle - Nursing please administer upon arrival and once administered post a bridge message with date of administration, log cut off sawyer, expiration date, and lot# so we can update [facility] 02/18/20 22 022 Inactive dispense with needle Shingrix (PF) 50 mcg/0.5 mL intramuscular suspension, kit RxNorm: 1993589 Administer 1/2 Milliliter(s) Intramuscular QD one time shingrix step 2 ( step 1 given 11/04/21) WITH needle - Nursing please administer upon arrival and once administered post a bridge message with date of administration, log cut off sawyer, expiration date, and lot# so we can update [facility] 02/18/20 22 022 Inactive dispense with needle polyethylene glycol 3350 17 gram/dose oral powder RxNorm: 839986 Take 17=1 capful Gram(s) Oral QD mix with 4-8oz of liquid 01/08/20 22 023 Inactive take this in addition to BID prn order Lyrica 100 mg capsule RxNorm: 293692 Take 1 Capsule(s) Oral QAM every morning 01/08/20 22 022 Inactive d/c 50mg dose acetaminophen 500 mg tablet RxNorm: 975376 Take 1 Tablet(s) Oral TID 01/08/20 22 022 Inactive d/c PRN order Lyrica 150 mg capsule RxNorm: 840729 Take 1 Capsule(s) Oral QHS every night at bedtime 01/08/20 22 023 Inactive d/c 100mg dose Abilify 5 mg tablet RxNorm: 857792 Take 1 Tablet(s) Oral QD take 1 tab po QD #30 refill 5 dx: MDD 12/12/19 22 022 Inactive Abilify 5 mg tablet RxNorm: 246563 Take 1 Tablet(s) Oral QD take 1 tab po QD #30 refill 5 dx: MDD 12/12/19 22 022 Inactive Novolog Flexpen U-100 Insulin aspart 100 unit/mL (3 mL) subcutaneous RxNorm: 4290362 Inject 42 Unit(s) Subcutaneous TID in addition to sliding scale 12/10/19 22 Inactive d/c 36u chlorthalidone 25 mg tablet RxNorm: 849763 Take 1 Tablet(s) Oral QAM every morning 12/10/19 22 023 Inactive pregabalin 50 mg capsule RxNorm: 149569 Take 1 Capsule(s) Oral QAM every morning 11/12/19 22 022 Inactive tetanus-diphtheria toxoids-Td 2 Lf unit-2 Lf unit/0.5 mL IM suspension RxNorm: 139 Take 0.5 Miscellaneous Intramuscular 11/12/19 22 022 Inactive need tdap - nursing to administer upon arrival pregabalin 50 mg capsule RxNorm: 150605 Take 1 Capsule(s) Oral QAM every morning 10/16/19 22 022 Inactive pregabalin 50 mg capsule RxNorm: 168744 Take 1 Capsule(s) Oral QAM every morning 10/16/19 22 022 Inactive pregabalin 50 mg capsule RxNorm: 156630 1 Capsule(s) Oral QAM every morning 10/15/19 22 022 Inactive Shingrix (PF) 50 mcg/0.5 mL intramuscular suspension, kit RxNorm: 6099195 Administer 1/2 Milliliter(s) Intramuscular one time Nursing please administer upon arrival and once administered post a bridge message with date of administration, log cut off sawyer, expiration date, and lot# so we can update [facility]. 10/09/19 22 022 Inactive shingrix step 1 Shingrix (PF) 50 mcg/0.5 mL intramuscular suspension, kit RxNorm: 4218318 Administer 1/2 Milliliter(s) Intramuscular one time Nursing please administer upon arrival and once administered post a bridge message with date of administration, log cut off sawyer, expiration date, and lot# so we can update [facility]. 10/09/19 22 Inactive shingrix step 1 cholecalciferol (vitamin D3) 1,250 mcg (50,000 unit) capsule RxNorm: 884035 Take 1 Capsule(s) Oral QW once a [...] aspart 100 unit/mL (3 mL) subcutaneous RxNorm: 3253287 Inject 10 Unit(s) Subcutaneous QHS every night at bedtime with nighttime snack 10/08/19 22 Inactive Shingrix (PF) 50 mcg/0.5 mL intramuscular suspension, kit RxNorm: 0519410 ADMINISTER 2-DOSE SERIES PER CDC GUIDELINES 10/08/19 22 Active Shingrix (PF) 50 mcg/0.5 mL intramuscular suspension, kit RxNorm: 6109862 ADMINISTER 2-DOSE SERIES PER CDC GUIDELINES 10/08/19 22 Inactive Novolog Flexpen U-100 Insulin aspart 100 unit/mL (3 mL) subcutaneous RxNorm: 3558763 Inject 36 Unit(s) Subcutaneous TID in addition to sliding scale 10/08/19 22 Inactive Novofine Autocover 30 gauge x 1/3 needle RxNorm: Use 1 Miscellaneous UD as directed Use 1 needle as directed to administer insulin 5 times a day Dx:E11.42. 10/03/19 22 Inactive ok to substitute with any covered alternative pen needle benzoyl peroxide 10 % topical cleanser RxNorm: 270482 Apply 1 Application Topical QD apply to face, wash rinse and dry once daily (may change to QOD if drying) 08/19/19 22 022 Inactive (%covered by insurance) #60ml refill 11 dx: acne benzoyl peroxide 10 % topical cleanser RxNorm: 645952 Apply 1 Application Topical QD apply to face, wash rinse and dry once daily (may change to QOD if drying) 08/19/19 22 022 Inactive (%covered by insurance) #60ml refill 11 dx: acne benzoyl peroxide 10 % topical cleanser RxNorm: 349081 Apply 1 Application Topical QD apply to face, wash rinse and dry once daily (may change to QOD if drying) 08/19/19 22 022 Inactive (%covered by insurance) #60ml refill 11 dx: acne Lyrica 50 mg capsule RxNorm: 452904 Take 1 Capsule(s) Oral QAM every morning Take 1 capsule by mouth once daily 08/19/19 22 022 Inactive benzoyl peroxide 10 % topical cleanser RxNorm: 212373 Apply 1 Application Topical QD apply to face, wash rinse and dry once daily (may change to QOD if drying) 08/19/19 022 Inactive (%covered by insurance) #60ml refill 11 dx: acne Lyrica 100 mg capsule RxNorm: 691720 Take 1 Capsule(s) Oral QHS every night at bedtime Take 1 capsule by mouth once daily at bedtime 08/19/19 22 022 Inactive Lyrica 100 mg capsule RxNorm: 785579 Take 1 Capsule(s) Oral QHS every night at bedtime Take 1 capsule by mouth once daily at bedtime 08/16/19 022 Inactive Lyrica 50 mg capsule RxNorm: 340352 Take 1 Capsule(s) Oral QAM every morning Take 1 capsule by mouth once daily 08/16/19 022 Inactive Levemir FlexTouch U-100 Insulin 100 unit/mL (3 mL) subcutaneous pen RxNorm: 303009 Inject 86 Unit(s) Subcutaneous BID 08/05/19 22 022 Inactive d/c 83units BID Lyrica 100 mg capsule RxNorm: 068616 Take 1 Capsule(s) Oral QHS every night at bedtime Take 1 capsule by mouth once daily at bedtime 07/14/19 22 Inactive Lyrica 50 mg capsule RxNorm: 352347 Take 1 Capsule(s) Oral QAM every morning Take 1 capsule by mouth once daily 07/14/19 22 Inactive Levemir FlexTouch U-100 Insulin 100 unit/mL (3 mL) subcutaneous pen RxNorm: 868755 Inject 83 Unit(s) Subcutaneous BID 07/08/19 22 [...] test strip hydralazine 50 mg tablet RxNorm: 083792 Take 1 Tablet(s) Oral QID 05/05/20 21 022 Inactive venlafaxine ER 225 mg tablet,extended release 24 hr RxNorm: 785589 Take 1 Tablet(s) Oral QD 05/05/20 21 021 Inactive venlafaxine ER 225 mg tablet,extended release 24 hr RxNorm: 516304 Take 1 Tablet(s) Oral QD 05/05/20 022 Inactive isosorbide mononitrate ER 30 mg tablet,extended release 24 hr RxNorm: 339997 Take 1 Tablet(s) Oral QD 05/05/20 024 Inactive hydralazine 50 mg tablet RxNorm: 999555 Take 1 Tablet(s) Oral QID 05/05/20 Inactive aspirin 81 mg tablet,delayed release RxNorm: 864094 Take 1 Tablet(s) Oral QD 03/31/20 022 Inactive Vitamin D2 1,250 mcg (50,000 unit) capsule RxNorm: 3653895 Take 1 Capsule(s) Oral QW once a week x 12 weeks 03/31/20 022 Inactive Vitamin D2 1,250 mcg (50,000 unit) capsule RxNorm: 1102874 Take 1 Capsule(s) Oral QW once a week 03/31/20 021 Inactive Zetia 10 mg tablet RxNorm: 721545 Take 1 Tablet(s) Oral QD 03/31/20 024 Inactive Zetia 10 mg tablet RxNorm: 349307 Take 1 Tablet(s) Oral QD 03/31/20 021 Inactive hydralazine 25 mg tablet RxNorm: 277294 Take 1 Tablet(s) Oral QID 03/31/20 021 Inactive hydralazine 25 mg tablet RxNorm: 275515 Take 1 Tablet(s) Oral QID 03/31/20 021 Inactive hydralazine 10 mg tablet RxNorm: 435668 Take 1 Tablet(s) Oral QID 03/03/20 021 Inactive cephalexin 500 mg tablet RxNorm: 887235 Take 1 Tablet(s) Oral QID 02/27/20 21 021 Inactive cephalexin 500 mg tablet RxNorm: 720273 Take 1 Tablet(s) Oral QID 02/27/20 021 Inactive lisinopril 40 mg tablet RxNorm: 477450 Take 1 Tablet(s) Oral QD 02/11/20 023 Inactive Eliquis 5 mg tablet RxNorm: 7494187 Take 1 Tablet(s) Oral BID 01/05/20 21 022 Inactive Eliquis 5 mg tablet RxNorm: 4893993 Take 2 Tablet(s) Oral QD 01/01/20 21 021 Inactive Lyrica 50 mg capsule RxNorm: 144354 Take 1 Capsule(s) Oral QAM every morning 12/24/19 021 Inactive Lyrica 100 mg capsule RxNorm: 693586 Take 1 Capsule(s) Oral QHS every night at bedtime 12/24/19 021 Inactive clotrimazole 1 % topical cream RxNorm: 005430 Apply to right foot and toes Topical BID 12/04/19 21 023 Inactive metoprolol succinate ER 200 mg tablet,extended release 24 hr RxNorm: 682183 Take 1 Tablet(s) Oral QD 12/04/19 21 023 Inactive ciprofloxacin 500 mg tablet RxNorm: 465161 Take 1 Tablet(s) Oral QD 11/30/19 021 Inactive DX ofloxacin otic drops Accu-Chek Guide test strips RxNorm: USE 1 TO CHECK GLUCOSE 4 TIMES DAILY AND NEEDED 11/15/19 21 023 Inactive Blood Glucose Test strips RxNorm: Use 1 Test Strip QID at PRN 11/05/19 21 023 Inactive E11.42 lisinopril 30 mg tablet RxNorm: 879899 Take 1 Tablet(s) Oral QD 10/30/19 21 021 Inactive lisinopril 20 mg tablet RxNorm: 876620 Take 1 Tablet(s) Oral QD 10/23/19 21 021 Inactive lisinopril 20 mg tablet RxNorm: 424374 Take 1 Tablet(s) Oral QD 10/23/19 21 021 Inactive lisinopril 10 mg tablet RxNorm: 634009 Take 1 Tablet(s) Oral QD 10/02/19 21 021 Inactive icosapent ethyl 1 gram capsule RxNorm: 7585833 Take 2 Capsule(s) (2 gm) Oral BID with meals 09/12/19 024 Inactive Okay to dispense one 2gm tab if you have that available. icosapent ethyl 1 gram capsule RxNorm: 4662620 Take 2 Capsule(s) Oral BID 09/12/19 21 021 Inactive Okay to dispense one 2gm tab if you have that available. amlodipine 10 mg tablet RxNorm: 343148 Take 1 Tablet(s) Oral QD 09/04/19 022 Inactive aspirin 81 mg tablet,delayed release RxNorm: 618936 Take 1 Tablet(s) Oral QD 09/04/19 21 021 Inactive Levemir FlexTouch U-100 Insulin 100 unit/mL (3 mL) subcutaneous pen RxNorm: 954987 Inject 150 Unit(s) Subcutaneous BID 09/04/19 21 022 Inactive venlafaxine ER 150 mg tablet,extended release 24 hr RxNorm: 301016 Take 1 Tablet(s) Oral QD 09/04/19 021 Inactive clotrimazole-betame thasone 1 %-0.05 % topical cream RxNorm: 617629 Apply to rash on red area on left abdomen/chest Topical BID 08/10/19 21 021 Inactive amlodipine 5 mg tablet RxNorm: 882146 Take 1 Tablet(s) Oral QD 07/31/19 21 Inactive cephalexin 500 mg tablet RxNorm: 505613 Take 1 Tablet(s) Oral BID BID - Twice Daily 07/31/19 21 021 Inactive Start 08/01/20 pantoprazole 40 mg tablet,delayed release RxNorm: 929335 Take 1 Tablet(s) Oral QAM every morning 07/08/19 21 022 Inactive senna 8.6 mg tablet RxNorm: 341927 Take 1 Tablet(s) Oral QD 07/08/19 21 022 Inactive carbamazepine 200 mg tablet RxNorm: 722577 Take 1 Tablet(s) Oral BID 07/08/19 022 Inactive clopidogrel 75 mg tablet RxNorm: 593402 Take 1 Tablet(s) Oral QD 07/08/19 021 Inactive Blood Glucose Test strips RxNorm: Use 1 Test Strip QID at PRN 07/08/19 21 Inactive E11.42 Novolog Flexpen U-100 Insulin aspart 100 unit/mL (3 mL) subcutaneous RxNorm: 4744639 Administer per sliding scale Milliliter(s) Subcutaneous TID 151-200: 10 u; 201-250: 20 u; 251-300: 30 u; 301-350: 40 u; 351-400: 50 u. 07/08/19 022 Inactive lisinopril 5 mg tablet RxNorm: 136575 Take 1 Tablet(s) Oral QD 07/08/19 021 Inactive Novolog Flexpen U-100 Insulin aspart 100 unit/mL (3 mL) subcutaneous RxNorm: 5229971 Inject 85 Unit(s) Subcutaneous TID 07/08/19 022 Inactive pravastatin 80 mg tablet RxNorm: 126688 Take 1 Tablet(s) Oral QHS every night at bedtime 07/08/19 023 Inactive clotrimazole 1 % topical cream RxNorm: 053497 Apply to bilateral groin areas Topical BID 07/08/19 022 Inactive metoprolol succinate ER 200 mg tablet,extended release 24 hr RxNorm: 568841 Take 1 Tablet(s) Oral QD 07/08/19 021 Inactive Vitamin D3 25 mcg (1,000 unit) tablet RxNorm: 318704 Take 1 Tablet(s) Oral QD 07/08/19 21 021 Inactive isosorbide dinitrate 30 mg tablet RxNorm: 251201 Take 1 Tablet(s) Oral QD 07/08/19 21 021 Inactive Levemir FlexTouch U-100 Insulin 100 unit/mL (3 mL) subcutaneous pen RxNorm: 432846 Inject 140 Unit(s) Subcutaneous BID 07/08/19 21 021 Inactive torsemide 20 mg tablet RxNorm: 905640 Take 1 Tablet(s) Oral QD 07/08/19 21 023 Inactive venlafaxine 75 mg tablet RxNorm: 828545 Take 1 Tablet(s) Oral QD 07/08/19 021 Inactive acetaminophen 500 mg tablet RxNorm: 980166 Take 1 Tablet(s) Oral TID as needed for headache 06/18/19 021 Inactive acetaminophen 500 mg tablet RxNorm: 297470 Take 1 Tablet(s) Oral TID as needed for headache 06/18/19 021 Inactive Lyrica 100 mg capsule RxNorm: 324208 Take 1 Capsule(s) Oral QHS every night at bedtime 06/11/19 021 Inactive Lyrica 50 mg capsule RxNorm: 218242 Take 1 Capsule(s) Oral QAM every morning 06/10/19 21 021 Inactive hydrocortisone 2.5 % topical cream RxNorm: 358092 Apply to bilateral groin creases Topical BID 05/15/20 20 021 Inactive clotrimazole 1 % topical cream RxNorm: 857291 Apply to bilateral groin areas Topical BID 05/15/20 20 021 Inactive Lyrica 50 mg capsule RxNorm: 109121 Take 1 Capsule(s) Oral QAM every morning 05/14/20 20 020 Inactive Lyrica 100 mg capsule RxNorm: 200798 Take 1 Capsule(s) Oral QHS every night [...] Inactive Nystop 100,000 unit/gram topical powder RxNorm: 526230 Apply to abd folds, under breasts and L side of groin Topical BID x 14 days, then BID PRN 04/08/20 20 Inactive dx: yeast dermatitis Lyrica 100 mg capsule RxNorm: 673886 Take 1 Capsule(s) Oral QHS every night at bedtime 03/13/20 20 Inactive Lyrica 50 mg capsule RxNorm: 926327 Take 1 Capsule(s) Oral QAM every morning 03/13/20 20 Inactive ketoconazole 2 % shampoo RxNorm: 129958 Apply Topical two times a week with showers 03/11/20 20 Inactive cholecalciferol (vitamin D3) 50 mcg (2,000 unit) tablet RxNorm: 283341 Take 1 Tablet(s) Oral QD 03/11/20 20 021 Inactive Zetia 10 mg tablet RxNorm: 680266 Take 1 Tablet(s) Oral QD 03/07/20 20 021 Inactive Zetia 10 mg tablet RxNorm: 559401 Take 1 Tablet(s) Oral QD 03/07/20 20 Inactive Lyrica 50 mg capsule RxNorm: 609048 Take 1 Capsule(s) Oral QAM every morning 02/15/20 20 Inactive Lyrica 100 mg capsule RxNorm: 181540 Take 1 Capsule(s) Oral QHS every night at bedtime 02/15/20 20 Inactive Lyrica 100 mg capsule RxNorm: 714597 Take 1 Capsule(s) Oral QHS every night at bedtime 02/15/20 20 Inactive Lyrica 50 mg capsule RxNorm: 726384 Take 1 Capsule(s) Oral QAM every morning 02/15/20 20 020 Inactive metoprolol succinate ER 200 mg tablet,extended release 24 hr RxNorm: 958540 Take 1 Tablet(s) Oral QD 08/12/19 23 Active loperamide 2 mg capsule RxNorm: 481644 Take 1 Capsule(s) Oral QID as needed 06/12/19 22 Active hydralazine 50 mg tablet RxNorm: 009577 Take 1 Tablet(s) Oral QID 08/12/19 23 Active Soft Touch Lancets RxNorm: miscellaneous 03/04/20 24 Active venlafaxine ER 75 mg capsule,extended release 24 hr RxNorm: 418104 Take 3 Capsule(s) Oral QD 06/12/19 22 023 Inactive polyethylene glycol 3350 17 gram/dose oral powder RxNorm: 928501 Take 17=1 capful Gram(s) Oral BID as needed mix with 4-8oz of liquid 06/12/19 22 024 Inactive icosapent ethyl 1 gram capsule RxNorm: 6300968 Take 2 Capsule(s) (2 gm) Oral BID with meals 10/07/19 23 023 Inactive Okay to dispense one 2gm tab if you have that available. Levemir FlexTouch U-100 Insulin 100 unit/mL (3 mL) subcutaneous pen RxNorm: 026034 Inject 80 Unit(s) Subcutaneous BID 07/14/19 23 023 Inactive Novolog Flexpen U-100 Insulin aspart 100 unit/mL (3 mL) subcutaneous RxNorm: 8409274 Insert 30 Unit(s) Subcutaneous TID with meals [...] [facility] WPtel: [address], [address] [id number] Referral Records Received 09/21/2022 Referral: [facility] WPtel: [address] [id number] [place] Referral Completed 05/28/2021 Referral: General Cardiology [...] attention.??Sister Jyotsna involved in his care cell# [phone]??Guardian: Giulia (tapan met in person 09/01/21), now [...] )??Bobbi note from 11.08.2023 at Endocrinology Clinic [facility] (follow up 6 months)Colon & Rectal Surgery visit scheduled for 03/08/24 with Matilde Pérez PA-C.?? 02/08/2024
--- OUTSIDE RECORDS SUMMARY | 2024-03-06 06:38 | XMS_ITS | Clinical Summary ---
Author Organization [facility] Address [address] [place] [address] Care Team Providers Care Work Order Clerk Name Role Phone Services, [facility] Physician Primary Care Provi sadia Prince Tobar MD Unavailable Prince Tobar MD Unavailable Matilde Pérez PA-C Unavailable [phone] Allergies Active Allergy Reactions Criticality Noted Date [...] daily Active cholecalciferol (VITAMIN D3) 1250 mcg (76425 units) capsule Take 1,250 mcg by mouth every 7 days on Wednesdays. Active venlafaxine (EFFEXOR-XR) 75 MG 24 hr capsule Take 225 mg by mouth daily Active hydrALAZINE (APRESOLINE) 50 MG tablet Take 50 mg by mouth 4 times daily Active polyethylene glycol (MIRALAX) 17 GM/Dose powder Take 17 g by mouth daily Active nystatin (MYCOSTATIN) 429746 UNIT/GM external powder Apply topically 2 times [...] CDT - 12/29/2023 12:59 AM CDT Emergency [facility] Emergency Dept [address] [place] [address] Agustin Cesar MD Anal fissure; External hemorrhoids Discharge Disposition: Home or Self Care 12/28/2023 Travel from Last 3 Months Immunizations Name Administration Dates Next Due COVID-19 MONOVALENT 12+ (Pfizer) 06/25/2020,05/17 [id number] Novel Flu 05/07/2009 Hepatitis B, Adult 02/16/2014,10/12/2013, [...] Choose not to disclose 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 Last Filed Vital Signs Vital Sign Reading [...] st Contact Info) Description 03/08/2024 PRE VISIT [facility]al [facility] Clinic [address] [place] [address] Matilde Pérez PA-C [address] [place] [address] Previsit 03/08/2024 12:00 PM CDT Office Visit [facility]al [facility] Clinic [address] 4th [place] [address] Reinaldo Beltran PA-C Emergency Phys[facility] [address] [place] [phone] Matilde Pérez PA-C [address] [place] [address] Health Maintenance Due Date Last Done Comments [...] without heart failure Atherosclerotic heart disease of [place] coronary artery without angina pectoris Body mass index (BMI) 60.0-69.9, adult (H) Chronic kidney disease, unspecified from Last 3 Months or Most Recently Relevant to Health Maintenance Results * (ABNORMAL) CBC with platelets and differential (12/28/2023 6:41 PM CDT) Pathologist [facility] WBC Count 5.9 4.0 - 11.0 10e3/uL [...] MD LAB - BLOOD ORD ERABLES LABORATORY [facility] Acute Care Lab [address] Lab (1st floor, no room number) [place] [address] * Adult Type and Screen (12/28/2023 6:41 PM CDT) ABO/RH(D) A POS 12/28/2023 6:28 PM CDT RH BLOOD BANK Antibody Screen Negative Negative 12/28/2023 6:28 PM CDT RH BLOOD BANK SPECIMEN EXPIRATION DATE [id number] 12/28/2023 6:28 PM CDT RH BLOOD BANK Blood STRUCTURE OF RIGHT UPPER LIMB / Unknown Venipuncture / Unknown 12/28/2023 6:41 PM CDT 12/28/2023 6:46 PM CDT Agustin Cesar MD LAB - BLOOD BAN K TEST ORDER Performing Organization Address [facility]/ZIP Co de Phone Number BLOOD BANK [address] [place] [address] * INR (12/28/2023 6:41 PM CDT) INR 1.01 0.85 - 1.15 12/28/2023 7:00 PM CDT [facility] LABORATORY Blood STRUCTURE OF RIGHT UPPER LIMB / Unknown Venipuncture / Unknown 12/28/2023 6:41 PM CDT 12/28/2023 6:46 PM CDT Agustin Cesar MD LAB - BLOOD ORD ERABLES RH LABORATORY [facility] Lab [address] Lab (1st floor, no room number) [place] [phone] * Partial thromboplastin time (12/28/2023 6:41 PM CDT) aPTT 28 22 - 38 Seconds 12/28/2023 7:00 PM CDT LABORATORY Blood STRUCTURE OF RIGHT UPPER LIMB / Unknown Venipuncture / Unknown 12/28/2023 6:41 PM CDT 12/28/2023 6:46 PM CDT Agustin Cesar MD LAB - BLOOD ORD ERABLES LABORATORY [facility] Lab [address] Lab (1st floor, no room number) [place] [phone] * (ABNORMAL) Comprehensive metabolic panel (12/28/2023 6:41 [...] MD LAB - BLOOD ORD ERABLES LABORATORY [facility] Acute [facility] Lab [address] [facility] Lab (1st floor, no room number) [place] [address], [facility] * (ABNORMAL) Hemoglobin A1c (10/15/2023 3:13 PM CDT) Hemoglobin A1C 10.8(H) <5.7 % 10/15/2023 4:57 PM CDT RH LABORATORY Comment: Normal <5.7% Prediabetes 5.7-6.4% ?? Diabetes 6.5% or higher Note: Adopted from ADA consensus guidelines. Blood BLOOD SPECIMEN / Unknown Client Draw / Unknown 10/15/2023 3:13 PM CDT 10/15/2023 4:25 PM CDT Harrison Munson LAB - BLOOD ORDERABL ES LABORATORY [facility] Lab [address] Lab (1st floor, no room number) [place] [address], [facility] from Last 3 Months or Most Recently Relevant to Health Maintenance Advance Directives For more information, please contact: [phone] Documents on File Type Date Recorded Patient Gathering Machine Feeder Expl anation Advance Directives and Living Will [...] yissel nt/ legal decision maker Care Teams Work Order Clerk Relationship Specialty Start Date End Date Services, [facility] Physician [address] [place] [address], [address] [address] PCP - General 05/22/21 Prince Tobar MD [address] [place] [address] [id number] Cardiovascular Disease 03/26/22 Prince Tobar MD [address] [place] [address] [phone] Assigned Heart and Vascular Provider 05/30/22 Matilde Pérez PA-C [address] [place] [address] 257195 Physician Endoscopy Technican Physician Endoscopy Technican - Surgical 12/30/23
--- OUTSIDE RECORDS SUMMARY | 2024-03-06 06:38 | XMS_ITS | Clinical Summary ---
Author Organization [facility] Address [address] [place] [address] Phone Care Team Providers Care Bioengineer Name Role Phone Mellisa Shirley PA-C Primary Care Provider [phone] Allergies Active Allergy Reactions Criticality Noted Date [...] 2 Active cholecalciferol (VITAMIN D-3) 1.25 MG (69798 UT) capsule Take 1,250 mcg by mouth [...] to complete this topic [place] [address] MEDICARE Care Teams Bioengineer Relationship Specialty Start Date End Date Mellisa Shirley PA-C PCP - General Physician Auto Garage Attendant 08/31/22
--- OUTSIDE RECORDS SUMMARY | 2024-03-06 06:39 | XMS_ITS | Encounter Summary ---
Author Organization [facility] Address [address] [place] [address] Care Team Providers Care Occupational Therapy Instructor Name Role Phone Services, [facility] Physician Primary Care Provi sadia Prince Tobar MD Unavailable [phone] Prince Tobar MD Unavailable [phone] Reason for Referral * Consultation (Priority: 1-2 Weeks) - Pending Review Specialty Diagnoses / Procedures Referred By Contjonhny dalal Referred To Contact Colon and Rectal Surgery Diagnoses Anal fissure External hemorrhoids Reinaldo Beltran PA-C Emergency Physicians [address] [place] [address] Referral ID Status Reason Start Date Expiration Date V isits Requested Visits Authorized [id number] Pending Review 12/28/2023 12/27/2024 1 1 Question Answer Reason for Referral: Anal Fissure Special Concerns: Other My Clinical Question Is: Anal fissure, taking Apixaban Scheduling Instructions: [facility] will call you to coordinate care as prescribed your provider. If you don? t hear from a community engagement representative within 2 business days, please call . Comments Please be aware that coverage of these services is subject to the terms and limitations of your health insurance plan. Call member services at your health plan with any benefit or coverage questions. [facility] will call you to coordinate care as prescribed your provider. If you don? t hear from a community engagement representative within 2 business days, please call . Reason for Visit * Reason Comments Rectal Bleeding Encounter Details Date Type Department Care Team (Late st Contact Info) Description 12/28/2023 6:08 PM CDT - 12/29/2023 12:59 AM CDT Emergency [facility] Emergency Dept [address] [place] [address] Agustin Cesar MD [address] [place] [address] Anal fissure; External hemorrhoids Discharge Disposition: Home [...] Choose not to disclose 2021 8:14 AM SUBACUTE NURSE documented as of this encounter Last Filed [...] PM CDT Thank you for coming to [facility] emergency department. The bleeding you noted [...] mouth daily cholecalciferol (VITAMIN D3) 1250 mcg (73340 units) capsule Take 1,250 mcg by mouth [...] 7 days 4 g 12/28/2023 nystatin (MYCOSTATIN) 079843 UNIT/GM external powder Apply topically 2 times [...] MG tablet cholecalciferol (VITAMIN D3) 1250 mcg (64683 units) capsule clotrimazole (LOTRIMIN) 1 % external [...] 200 MG 24 hr tablet nystatin (MYCOSTATIN) 532115 UNIT/GM external powder pantoprazole (PROTONIX) 40 MG [...] POS Antibody Screen Negative SPECIMEN EXPIRATION DATE [id number] ABO/RH TYPE AND SCREEN Emergency Department Course [...] 1. Anal fissure K60.2 Adult Colorectal Surgery Second Language Tutor Referral 2. External hemorrhoids K64.4 Adult Colorectal Surgery Second Language Tutor Referral Discharge Medications: New Prescriptions HYDROCORTISONE, PERIANAL, [...] he went to a clinic in [place], he is unsure of what was done [...] MG tablet cholecalciferol (VITAMIN D3) 1250 mcg (91597 units) capsule clotrimazole (LOTRIMIN) 1 % external [...] 200 MG 24 hr tablet nystatin (MYCOSTATIN) 793844 UNIT/GM external powder pantoprazole (PROTONIX) 40 MG [...] POS Antibody Screen Negative SPECIMEN EXPIRATION DATE [id number] ABO/RH TYPE AND SCREEN Imaging No orders to display Independent Interpretation None ED Course Medications Administered Medications - No data to display Procedures Procedures Discussion of Management Staffed with Dr. Cesar ED Course ED Course as of 12/28/231936Dec 28, 20231838 I evaluated and examined the patient 1902 Rectal exam with RN at bedside Additional Documentation None Medical Decision Making / Diagnosis [facility] Diagnoses: None MIPS None [facility] Leonid Leahy is a 63 year old [...] 1. Anal fissure K60.2 Adult Colorectal Surgery Second Language Tutor Referral 2. External hemorrhoids K64.4 Adult Colorectal Surgery Second Language Tutor Referral Discharge Medications New Prescriptions HYDROCORTISONE, PERIANAL, [...] Pt comes from assisted living facility in [place]. * Tamiko Monzon RN - 12/28/2023 6:08 PM CDT Bed: ED01 Expected date: Expected time: Means of arrival: Comments: [id number] documented in this encounter Plan of Treatment Upcoming Encounters Date Type Department Care Team (Late st Contact Info) Description 03/08/2024 PRE VISIT [facility] Colon and Rectal Surgery Clinic [address] [address] Matilde Pérez PA-C [address] [place] [address] Previsit 03/08/2024 12:00 PM CDT Office Visit [facility] Colon and Rectal Surgery Clinic [address] [phone] Reinaldo Beltran PA-C Emergency Physicians [address] [place] [phone] Matilde Pérez PA-C [address] [place] [address] Scheduled Referrals Name Type Priority Associated Diagnoses Orde r Schedule Adult Colorectal Surgery Second Language Tutor Referral Referral Priority: 1-2 Weeks Anal fissure [...] CDT RH BLOOD BANK SPECIMEN EXPIRATION DATE [id number] 12/28/2023 6:28 PM CDT RH BLOOD BANK Blood STRUCTURE OF RIGHT UPPER LIMB / Unknown Venipuncture / Unknown 12/28/2023 6:41 PM CDT 12/28/2023 6:46 PM CDT Agustin Cesar MD LAB - BLOOD BAN K TEST ORDER BLOOD [place] [address], [facility] * (ABNORMAL) CBC with platelets and differential [...] MD LAB - BLOOD ORD ERABLES LABORATORY [facility] Acute Care Lab [address] [facility] Lab (1st floor, no room number) [place] [address], [facility] * (ABNORMAL) Comprehensive metabolic panel (12/28/2023 6:41 [...] MD LAB - BLOOD ORD ERABLES LABORATORY [facility] Acute Care Lab [address] [facility] Lab (1st floor, no room number) [place] [address], [facility] * Partial thromboplastin time (12/28/2023 6:41 PM CDT) aPTT 28 22 - 38 Seconds 12/28/2023 7:00 PM CDT RH LABORATORY Blood STRUCTURE OF RIGHT UPPER LIMB / Unknown Venipuncture / Unknown 12/28/2023 6:41 PM CDT 12/28/2023 6:46 PM CDT Agustin Cesar MD LAB - BLOOD ORD ERABLES [facility] Care Lab [address] Lab (1st floor, no room number) [place] [address] * INR (12/28/2023 6:41 PM CDT) INR 1.01 0.85 - 1.15 12/28/2023 7:00 PM CDT LABORATORY Blood STRUCTURE OF RIGHT UPPER LIMB / Unknown Venipuncture / Unknown 12/28/2023 6:41 PM CDT 12/28/2023 6:46 PM CDT Agustin Cesar MD LAB - BLOOD ORD ASHISH Performing Organization Address City/[facility]/ZIP Co de Phone Number [facility] Care [facility] [address] Lab (1st floor, no room number) [place] [address] documented in this encounter Visit Diagnoses Diagnosis Anal fissure External hemorrhoids External hemorrhoids without mention of complication documented in this encounter Care Teams Occupational Therapy Instructor Relationship Specialty Start Date End Date Services, [facility] Physician [address] [place] [address] PCP - General 05/22/21 Prince Tobar MD [address] [place] [address] Cardiovascular Disease 03/26/22 Prince Tobar MD [address] [place] [address] Assigned Heart and Vascular Provider 05/30/22 documented as of this encounter
--- OUTSIDE RECORDS SUMMARY | 2024-03-06 06:39 | XMS_ITS | Encounter Summary ---
Author Organization [facility] Address [address] 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 documented as of this encounter Plan of Treatment Upcoming Encounters Date Type Department Care Team (Late st Contact Info) Description 03/08/2024 PRE VISIT [facility] Colon and Rectal Surgery Clinic [address] [address] Matilde Pérez PA-C [address] [place] [address] Previsit 03/08/2024 12:00 PM CDT Office Visit [facility] Colon and Rectal Surgery Clinic [address] [place] [phone] Reinaldo Beltran PA-C Emergency Physicians [facility] [address] [place] [address] Matilde Pérez PA-C [address] [place], [place] [address] documented as of this encounter Visit Diagnoses Not on filedocumented in this encounter Care Teams Well Puller Relationship Specialty Start Date End Date Services, [facility] Physician [address] [facility] [address] [place], [place] [phone] PCP - General 05/22/21 Prince Tobar MD [address] [place] [address] Cardiovascular Disease 03/26/22 Prince Tobar MD [address] [place] [address] Assigned Heart and Vascular Provider 05/30/22 documented as of this encounter
--- OUTSIDE RECORDS SUMMARY | 2024-03-06 06:39 | XMS_ITS | Referral Summary ---
Author Organization [place] Address [address] [place] [address] Care Team Providers Care Field Technical Support Consultant Name Role Phone Services, [facility] Physician Primary Care Provi sadia Prince Tobar MD Unavailable Prince Tobar MD Unavailable Matilde Pérez PA-C Unavailable [phone] Encounters Date Type Department Care Team Description 12/28/2023 6:08 PM CDT - 12/29/2023 12:59 AM T Emergency [facility] Emergency Dept [address] [place] [address] Agustin Cesar MD Anal fissure; External hemorrhoids [...] daily Active cholecalciferol (VITAMIN D3) 1250 mcg (43717 units) capsule Take 1,250 mcg by mouth every 7 days on Wednesdays. Active venlafaxine (EFFEXOR-XR) 75 MG 24 hr capsule Take 225 mg by mouth daily Active hydrALAZINE (APRESOLINE) 50 MG tablet Take 50 mg by mouth 4 times daily Active polyethylene glycol (MIRALAX) 17 GM/Dose powder Take 17 g by mouth daily Active nystatin (MYCOSTATIN) 742650 UNIT/GM external powder Apply topically 2 times [...] Next Due COVID-19 MONOVALENT 12+ (Pfizer) 06/25/2020,05/17 L9l5-14 Novel Flu 05/07/2009 Hepatitis B, Adult 02/16/2014,10/12/2013, [...] Choose not to disclose 2021 8:14 AM ANIME ARTIST Last Filed Vital Signs Vital Sign Reading [...] st Contact Info) Description 03/08/2024 PRE VISIT [facility] [address] [place] [address] Matilde Pérez PA-C [address] [place] [address] Previsit 03/08/2024 12:00 PM CDT Office Visit [facility] [address] [place] [address] Reinaldo Beltran PA-C [facility] [address] [place] [phone] Matilde Pérez PA-C [address] [place] [address] Procedures Procedure Name Priority Date/Time Associated Diagnosis [...] without heart failure Atherosclerotic heart disease of [place] coronary artery without angina pectoris Body mass index (BMI) 60.0-69.9, adult (H) Chronic kidney disease, unspecified from Last 3 Months or Most Recently Relevant to Health Maintenance Results * (ABNORMAL) CBC with platelets and differential (12/28/2023 6:41 PM CDT) [facility] WBC Count 5.9 4.0 - 11.0 [...] LAB - BLOOD ORD ERABLES [facility] LABORATORY [facility] [address] Lab (1st floor, no room number) [place] [address] * Adult Type and Screen (12/28/2023 6:41 PM CDT) ABO/RH(D) A POS 12/28/2023 6:28 PM CDT [facility] BLOOD BANK Antibody Screen Negative Negative 12/28/2023 6:28 PM CDT RH BLOOD BANK SPECIMEN EXPIRATION DATE [id number] 12/28/2023 6:28 PM CDT [facility] BLOOD BANK Blood STRUCTURE OF RIGHT UPPER LIMB / Unknown Venipuncture / Unknown 12/28/2023 6:41 PM CDT 12/28/2023 6:46 PM CDT Agustin Cesar MD LAB - BLOOD BAN K TEST ORDER Performing Organization Address City/[facility]/ZIP Co de Phone Number RH BLOOD BANK [address] [place] [address] * INR (12/28/2023 6:41 PM CDT) INR 1.01 0.85 - 1.15 12/28/2023 7:00 PM CDT [facility] LABORATORY Blood STRUCTURE OF RIGHT UPPER LIMB / Unknown Venipuncture / Unknown 12/28/2023 6:41 PM CDT 12/28/2023 6:46 PM CDT Agustin Cesar MD LAB - BLOOD ORD ERABLES LABORATORY [facility] [address] Lab (1st floor, no room number) [place] [phone] [place] [address] * Partial thromboplastin time (12/28/2023 6:41 PM CDT) aPTT 28 22 - 38 Seconds 12/28/2023 7:00 PM CDT LABORATORY Blood STRUCTURE OF RIGHT UPPER LIMB / Unknown Venipuncture / Unknown 12/28/2023 6:41 PM CDT 12/28/2023 6:46 PM CDT Agustin Cesar MD LAB - BLOOD ORD ERABLES Performing Organization Address [facility]/ZIP Co de Phone Number LABORATORY [facility] [address] Lab (1st floor, no room number) [address] * (ABNORMAL) Comprehensive metabolic panel (12/28/2023 [...] MD LAB - BLOOD ORD ERABLES LABORATORY [facility] [address] [facility] Lab (1st floor, no room number) [place] [address], [facility] * (ABNORMAL) Hemoglobin A1c (10/15/2023 3:13 PM CDT) Hemoglobin A1C 10.8(H) <5.7 % 10/15/2023 4:57 PM CDT [facility] LABORATORY Comment: Normal <5.7% Prediabetes 5.7-6.4% ?? Diabetes 6.5% or higher Note: Adopted from ADA consensus guidelines. Blood BLOOD SPECIMEN / Unknown Client Draw / Unknown 10/15/2023 3:13 PM CDT 10/15/2023 4:25 PM CDT [facility] LAB - BLOOD ORDERABL ES [facility] [address] Lab (1st floor, no room number) [place] [address], [facility] from Last 3 Months or Most Recently Relevant to Health Maintenance Advance Directives For more information, please contact: [phone] Documents on File Type Date Recorded Patient Director Data Expl anation Advance Directives and Living Will [...] patie nt/ legal decision maker Care Teams Field Technical Support Consultant Relationship Specialty Start Date End Date Services, [facility] Physician [address] [facility], [address] [address] PCP - General 05/22/21 Prince Tobar MD [address] [place] [address] [phone] Cardiovascular Disease 03/26/22 Prince Tobar MD [address] [place] [address] [phone] Assigned Heart and Vascular Provider 05/30/22 Matilde Pérez PA-C [address] [place] [address] Physician Service Observer Chief Physician Service Observer Chief - Surgical 12/30/23
--- OUTSIDE RECORDS SUMMARY | 2024-03-06 06:39 | XMS_ITS | Clinical Summary ---
Author Organization [facility] Address [place], [place] [address] Care Team Providers Care Manhole Stripper Name Role Phone Alan Lopez MD Unavailable [...] type 2 diabetes mellitus (HC),Chronic edema JOBST #[id number] LRG FULL CALF KNEE BLACK 20-30 COMPRESSION [...] mg extended release tablet 24 HourIndications:CAD in [place] artery Take 1 tablet by mouth once [...] call MD 0 04/01/2020 Active Insulin Safety [place], Disp, (NOVOFINE AUTOCOVER) 30 gauge x /3Indications:Cecelia [...] at 10 am and no showed. RN Admin Prog Coord, Juanita Yoo, notified and she will attempt [...] No, referral made to Advance Care Plan Director [employer]. Patient has identified Specific Treatment Preferences: No Sophai Méndez RN .................... 07/06/2011 2:30 PM] Specific limits to treatment preferences NOT identified: ASSUME FULL TREATMENT. Assessment & Plan (05/25/2012 12:51 PM FRONT END ARCHITECT): Advance Care Planning: Disease-specific Session Leonid Leahy is a [facility] patient. His PCP is Leandra Limon at [facility]. Advance care planning discussions were completed with Leonid. He identified his sister, Brittany Suggs, as his healthcare agent. Brittany was not present for ACP session. Understanding of Illness and Disease [place]: Leonid identifies his medical condition as what [...] to live well: Daily visit to local [employer] for a pop and to visit and catch up in the news with locals. Leonid obed with serious challenges in his life: Support of his sister, only a phone call away. Helps manage [facility]. Leonid identifies the following fears [...] and primary care provider. Hard Choices for [place] [employer] booklet was sent to Leonid and his health care agent for review. Leonid requested all information be mailed to his sister and life underwriter to place call to sister to explain process. Leonid identified the following concerns during his advance care planning session: needing assistance at home to ensure he is managing his medications and treatments to keep going as is and stabilizing. Is followed by [facility] for needed services. Questions identified for his primary care provider: none Documents addressed during this advance care planning session: Health Care Directive completed and scanned into medical record. Statement of Treatment Preferences for advanced illness completed and scanned into the medical record. Recommendations/Plan: Leonid to review Advance Care Plan with Leonid's healthcare agent. Children'S Literature Professor will be contacting Leonid's [facility] to explain services rendered, Leonid would benefit from: Home Care and/or Hospice when / if appropriate. [facility] services involved, [facility] supports coordination of medical asistance. Care Management- [...] 2:27 PM Sophia Méndez RN RN [facility] - [facility] [phone] Vitamin D deficiency 01/06/2011 011 Neuropathy 09/25/2010 [...] 176.9 kg (390 lb) 07/14/2022 6:10 PM FRONT END ARCHITECT Height 167.6 cm (5' 6) 07/14/2022 6:10 PM FRONT END ARCHITECT Body Mass Index 62.95 07/14/2022 6:10 PM FRONT END ARCHITECT Plan of Treatment Health Maintenance Due [...] [employer] Implanted Type Area Customer Sales Advisor Device Identifier Shelf Expiration Date Model / Serial / Lot Iol Live Oak +20 [employer]ecnis Zcb00 - [id number] Implanted:Qty: 1 on 07/15/2022 by Tanner Fuentes MD at [facility] Left: Eye [employer] 06/24/2025 ZCB00 20.0 / [id number] / Iol [employer] Oak +20 [employer]nis Zcb00 - [id number] Implanted:Qty: 1 on 08/19/2022 by Tanner Fuentes MD at [facility] Right: Eye [employer] 06/24/2025 ZCB00 20.0 / [id number] / Procedures Procedure Name Priority Date/Time Associated Diagnosis Comments LIPID PANEL Routine 03/13/2019 2:31 PM CDT Essential hypertriglyceridemia from Last 3 Months or Most Recently Relevant to Health Maintenance Results * (ABNORMAL) LIPID PANEL (03/13/2019 2:31 PM CDT) [facility] CHOLESTEROL,TOTAL 193 100 - 199 mg/dL 03/13/2019 9:25 PM CDT [facility] TRIGLYCERIDES 715(H) <150 mg/dL 03/13/2019 9:25 PM CDT [facility] HDL CHOLESTEROL 29(L) >40 mg/dL 9 9:25 PM CDT [facility] NON-HDL CHOLESTEROL 164(H) <145 mg/dl 03/13/2019 9:25 PM CDT [facility] CHOL/HDL RATIO 6.66(H) <4.50 03/13/2019 9:25 PM CDT [facility] LDL CHOLESTEROL 9 9:25 PM CDT [facility] Comment:Invalid LDL when Tri g >400. PROVIDER ORDERED STATUS RANDOM 03/13/2019 9:25 PM CDT [facility] Blood BLOOD SPECIMEN / Unknown Venipuncture / Unknown 03/13/2019 2:31 PM CDT 03/13/2019 2:31 PM CDT Suellen Sosa MD CHEMISTRY [facility] [employer] [facility] [address] [place] [address], from Last 3 Months or Most Recently Relevant to Health Maintenance Advance Directives Documents on File Type Date Recorded Patient Compliance Auditor Eduardo smiley POL 09/26/2014 3:45 PM AH [...] 9:30 PM 03/19/2009 6:17 PM Care Teams Manhole Stripper Relationship Specialty Start Date End Date Pcp, No . PCP - General 07/15/22 Alan Lopez MD Internal Medicine Internal Medicine 11/20/10 Nishant Watson MD [address] [place] [address] Endocrinology 08/15/13
[2024-03-06 06:41] LABS: Creatinine* 1.2 mg/dL (0.5-1.5); Est. Creatinine Clearance* 56.12; Estimated Glomerular Filt Rate 68 ml/min
[2024-03-06 06:42] LABS: Anion Gap 12 mEq/L (7-15); Blood Urea Nitrogen* 31 mg/dL (7-30); Calcium* 8.6 mg/dL (8.4-10.6); Carbon Dioxide* 30 mmol/L (20-32); Glucose* 295 mg/dL (60-115)
[2024-03-06 06:56] LABS: C Reactive Protein* 18.7 mg/dL (0.5-1.0)
--- NOTE | 2024-03-06 08:41 | ED.NURSE ---
awake to void, continue to wait for EMS for transfer back to [facility]
[2024-03-06 10:35] VITALS: BP 110/78; PULSE 88; RESP 20; O2SAT 93
== END 2024-03-06 10:36 | disposition home or self-care (01) ==
PROVIDERS: Emergency Provider Family Medicine
DX: M53.3 Sacrococcygeal disorders, not elsewhere classified (principal)
CPT/HCPCS: 36415; 80048; 85025; 86140; 99283; 99284; A9270

== ENCOUNTER 2024-03-06 10:34 | Outpatient (CLI) | payer MEDICARE, MEDICAID, SELFPAY ==
--- OUTSIDE RECORDS SUMMARY | 2024-03-11 15:32 | XMS_ITS | Referral Summary ---
Author Organization [place] Address [address] [facility] [place] [address] Care Team Providers Care Electric Tool Repairer Name Role Phone Services, [facility] Physician Primary Care Provi sadia Prince Tobar MD Unavailable Prince Tobar MD Unavailable Matilde Pérez PA-C Unavailable Encounters Date Type Department Care Team Description 03/08/2024 PRE VISIT [facility]al Surgery [facility] [address] 4th [place] [address] Matilde Pérez PA-C Previsit 03/07/2024 5:35 PM CDT - 03/08/2024 8:[address] [facility] Emergency Dept [address] [place] [address] Sandra Monroy MD [place], Samuel, MD McDonald, Lindsey E, DO Hyperglycemia (Primary Dx); Urinary tract infection with hematuria, site unspecified Discharge Disposition: Home or Self Care 03/07/2024 Travel 12/28/2023 6:08 PM CDT - 12/29/2023 12:[address] [facility] Emergency Dept [address] [place] [address] Agustin Cesar MD Anal fissure; External hemorrhoids [...] daily Active cholecalciferol (VITAMIN D3) 1250 mcg (62618 units) capsule Take 1,250 mcg by mouth every 7 days on Wednesdays. 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 Gender Identity Not on file Sexual Orientation Choose not to disclose 2021 8:14 AM POWER BARKER OPERATOR Last Filed Vital Signs Vital Sign [...] without heart failure Atherosclerotic heart disease of [place] coronary artery without angina pectoris Body mass [...] - BEAKER POCT Final Re sult LABORATORY [facility] Acute Care Lab [address] [facility] Lab (1st floor, no room number) [place] [address] * (ABNORMAL) UA with Microscopic (03/08/2024 8:29 AM CDT) Color Urine Dark Brown(A) Colorless, Straw, Light Yellow, Yellow 03/08/2024 8:53 AM CDT LABORATORY Appearance Urine Cloudy(A) Clear 03/08/20 8:53 AM CDT LABORATORY Glucose Urine >=1000(A) Negative mg/dL 03/08/2024 8:53 AM CDT LABORATORY Bilirubin Urine Negative Negative 8:53 AM CDT LABORATORY Ketones Urine Negative Negative mg/dL 03/08/2024 8:53 AM CDT LABORATORY Specific [place] Urine 1.023 1.003 - 1.035 03/08/2024 8:53 [...] - URINE ORDERABLES Fin al Result LABORATORY [facility] Acute Care Lab [address] Lab (1st floor, no room number) [place] [address] * (ABNORMAL) Basic metabolic panel [...] BLOOD ORDERABLES Fin al Result RH LABORATORY [facility] Acute Care Lab [address] [facility] Lab (1st floor, no room number) [place] [address], [facility] * (ABNORMAL) Blood gas venous (03/07/2024 [...] ORDERABLES Fin al Result Performing Organization Address City/[facility]/ZIP Co de Phone Number [facility] Lab [address] Lab (1st floor, no room number) [place] [address], [place] * Extra Purple Top Tube (03/07/2024 7:02 PM CDT) Hold Specimen [facility] 03/07/2024 8:07 PM CDT RH LABORATORY Blood STRUCTURE OF RIGHT UPPER LIMB / Unknown Venipuncture / Unknown 03/07/2024 7:02 PM CDT 03/07/2024 7:07 PM CDT us Sandra Monroy MD LAB - BLOOD ORDERABLES Fin al Result [facility] Care Lab [address] Lab (1st floor, no room number) [place] [address] * Extra Red Top Tube (03/07/2024 7:02 PM CDT) Hold Specimen [facility] 03/07/2024 8:07 PM CDT RH LABORATORY Blood STRUCTURE OF RIGHT UPPER LIMB / Unknown Venipuncture / Unknown 03/07/2024 7:02 PM CDT 03/07/2024 7:07 PM CDT Sandra Monroy MD LAB - BLOOD ORDERABLES Fin al Result [facility] Care Lab [address] Lab (1st floor, no room number) [place] [address] * Extra Blue Top Tube (03/07/2024 7:02 PM CDT) Hold Specimen [facility] 03/07/2024 8:07 PM CDT LABORATORY Blood STRUCTURE OF RIGHT UPPER LIMB / Unknown Venipuncture / Unknown 03/07/2024 7:02 PM CDT 03/07/2024 7:07 PM CDT Sandra Monroy MD LAB - BLOOD ORDERABLES Fin al Result Performing Organization Address [facility] Co de Phone Number [facility] Lab [address] Lab (1st floor, no room number) [place] [address], [facility] * (ABNORMAL) Ketone Beta-Hydroxybutyrate Quantitative (03/07/2024 7:02 PM CDT) [facility] Ketone (Beta-Hydroxybuty rate) Quantitative 0.44(H) <=0.30 mmol/L 03/07/2024 8:09 PM CDT LABORATORY Blood STRUCTURE OF RIGHT UPPER LIMB / Unknown Venipuncture / Unknown 03/07/2024 7:02 PM CDT 03/07/2024 7:07 PM CDT Sandra Monroy MD LAB - BLOOD ORDERABLES Fin al Result [facility] Care Lab [address] Lab (1st floor, no room number) [place] [address], [facility] * (ABNORMAL) CBC with platelets and differential (12/28/2023 6:41 PM CDT) [facility] WBC Count 5.9 4.0 - 11.0 10e3/uL [...] - BLOOD ORDERABLES Final Result RH LABORATORY [facility] Acute Care Lab [address] Lab (1st floor, no room number) [place] [address] * Adult Type and Screen (12/28/2023 6:41 PM CDT) ABO/RH(D) A POS 12/28/2023 6:28 PM CDT RH BLOOD BANK Antibody Screen Negative Negative 12/28/2023 6:28 PM CDT RH BLOOD BANK SPECIMEN EXPIRATION DATE [id number] 12/28/2023 6:28 PM CDT RH BLOOD BANK Blood STRUCTURE OF RIGHT UPPER LIMB / Unknown Venipuncture / Unknown 12/28/2023 6:41 PM CDT 12/28/2023 6:46 PM CDT Agustin Cesar MD LAB - BLOOD BANK TEST O RDER Final Result RH BLOOD BANK [address] [place] [address] * INR (12/28/2023 6:41 PM CDT) INR 1.01 0.85 - 1.15 12/28/2023 7:00 PM CDT RH LABORATORY Blood STRUCTURE OF RIGHT UPPER LIMB / Unknown Venipuncture / Unknown 12/28/2023 6:41 PM CDT 12/28/2023 6:46 PM CDT Agustin Cesar MD LAB - BLOOD ORDERABLES Final Result LABORATORY [facility] Care Lab [address] Lab (1st floor, no room number) [place] [address] * Partial thromboplastin time (12/28/2023 6:41 PM CDT) aPTT 28 22 - 38 Seconds 12/28/2023 7:00 PM CDT LABORATORY Blood STRUCTURE OF RIGHT UPPER LIMB / Unknown Venipuncture / Unknown 12/28/2023 6:41 PM CDT 12/28/2023 6:46 PM CDT Agustin Cesar MD LAB - BLOOD ORDERABLES Final Result Performing Organization Address City/[facility]/ZIP Co de Phone Number LABORATORY [facility] Care Lab [address] Lab (1st floor, no room number) [place] [address], [facility] * (ABNORMAL) Comprehensive metabolic panel (12/28/2023 [...] - BLOOD ORDERABLES Final Result RH LABORATORY [facility] Acute Care Lab [address] Lab (1st floor, no room number) [place] [address], [facility] * (ABNORMAL) Hemoglobin A1c (10/15/2023 3:13 PM CDT) Hemoglobin A1C 10.8(H) <5.7 % 10/15/2023 4:57 PM CDT RH LABORATORY Comment: Normal <5.7% Prediabetes 5.7-6.4% ?? Diabetes 6.5% or higher Note: Adopted from ADA consensus guidelines. Blood BLOOD SPECIMEN / Unknown Client Draw / Unknown 10/15/2023 3:13 PM CDT 10/15/2023 4:25 PM CDT Harrison Munson KIMBERLY LAB - BLOOD ORDERABLES Final Result [facility] Acute Care Lab [address] Lab (1st floor, no room number) [place] [address], [facility] from Last 3 Months or Most Recently Relevant to Health Maintenance Insurance [place] Advance Directives For more information, please contact: [phone] Documents on File Type Date Recorded Patient Glass Bead Maker Expl anation Advance Directives and Living Will [...] patie nt/ legal decision maker Care Teams Electric Tool Repairer Relationship Specialty Start Date End Date Services, [facility] Physician [address] [place] [address] PCP - General 05/22/21 Prince Tobar MD [address] [place] [address] Cardiovascular Disease 03/26/22 Prince Tobar MD [address] [place], [place] [address] Assigned Heart and Vascular Provider 05/30/22 Matilde Pérez PA-C [address] [place] [address] Physician Diesel Trailer Mechanic Physician Diesel Trailer Mechanic - Surgical 12/30/23
--- OUTSIDE RECORDS SUMMARY | 2024-03-11 15:32 | XMS_ITS | Clinical Summary ---
Author Organization [facility] Address [address] [place] [address] Phone Care Team Providers Care Condominium Association Manager Name Role Phone Mellisa Shirley PA-C Primary Care Provider [phone] Allergies Active Allergy Reactions Criticality Noted Date [...] 2 Active cholecalciferol (VITAMIN D-3) 1.25 MG (76531 UT) capsule Take 1,250 mcg by mouth [...] to complete this topic [place] [address] MEDICARE Care Teams Condominium Association Manager Relationship Specialty Start Date End Date Mellisa Shirley PA-C PCP - General Physician Cement Cutter 08/31/22
--- OUTSIDE RECORDS SUMMARY | 2024-03-11 15:32 | XMS_ITS | Encounter Summary ---
Author Organization [place] Address [address] [facility] [place] [address] Care Team Providers Care Rand Butter Name Role Phone Services, [facility] Physician Primary Care Provi sadia Prince Tobar MD Unavailable Prince Tobar MD Unavailable Matilde Pérez PA-C Unavailable [phone] Reason for Visit * Reason Onset Date Comments Previsit 03/08/2024 Encounter Details Date Type Department Care Team (Late st Contact Info) Description 03/08/[address] 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: 12/28/23 - ED OV with [...] on filedocumented in this encounter Care Teams Rand Butter Relationship Specialty Start Date End Date Services, [facility] Physician [address] [place] [address] PCP - General 05/22/21 Prince Tobar MD [address] [place] [address] Cardiovascular Disease 03/26/22 Prince Tobar MD [address] [place] [address] Assigned Heart and Vascular Provider 05/30/22 Matilde Pérez PA-C [address] [place] [address] [phone] Physician Veterinary Technology Instructor Physician Veterinary Technology Instructor - Surgical 12/30/23 documented as of this encounter
--- OUTSIDE RECORDS SUMMARY | 2024-03-11 15:32 | XMS_ITS | Clinical Summary ---
Author Organization [place] Address [address] [facility] [place] [address] Care Team Providers Care Junior Database Administrator Name Role Phone Services, [facility] [...] daily Active cholecalciferol (VITAMIN D3) 1250 mcg (73755 units) capsule Take 1,250 mcg by mouth every 7 days on Wednesdays. Active venlafaxine (EFFEXOR-XR) 75 MG 24 hr capsule Take 225 mg by mouth daily Active hydrALAZINE (APRESOLINE) 50 MG tablet Take 50 mg by mouth 4 times daily Active polyethylene glycol (MIRALAX) 17 GM/Dose powder Take 17 g by mouth daily Active nystatin (MYCOSTATIN) 015296 UNIT/GM external powder Apply topically 2 times [...] Department Care Team Description 03/08/2024 PRE VISIT [facility] [address] [address] Matilde Pérez PA-C Previsit 03/07/2024 5:35 PM CDT - 03/08/2024 8:21 PM CDT Emergency [facility] Emergency Dept [address] [place] [address] Sandra Monroy MD [place], Samuel, MD McDonald, Lindsey E, Hyperglycemia (Primary Dx); Urinary tract infection with hematuria, site unspecified Discharge Disposition: Home or Self Care 03/07/2024 Travel 12/28/2023 6:08 PM CDT - 12/29/2023 12:59 AM CDT Emergency [facility] Emergency Dept [address] [place] [address] Agustin Cesar MD Anal fissure; External hemorrhoids Discharge Disposition: Home or Self Care 12/28/2023 Travel from Last 3 Months Immunizations Name Administration Dates Next Due COVID-19 MONOVALENT 12+ (Pfizer) 06/25/2020,05/17 [id number] Novel Flu 05/07/2009 Hepatitis B, Adult 02/16/2014,10/12/2013, [...] on file Legal Sex Male 3:35 AM STAMP ANALYST Gender Identity Not on file Sexual Orientation Choose not to disclose 2021 8:14 AM STAMP ANALYST Last Filed Vital Signs Vital Sign Reading [...] without heart failure Atherosclerotic heart disease of [place] coronary artery without angina pectoris Body [...] POCT Final Re sult RH LABORATORY POC [facility] [address] [facility] (1st floor, no room number) [place] [address] * (ABNORMAL) UA with Microscopic (03/08/2024 8:29 AM CDT) Color Urine Dark Brown(A) Colorless, Straw, Light Yellow, Yellow 03/08/2024 8:53 AM CDT LABORATORY Appearance Urine Cloudy(A) Clear 03/08/20 8:53 AM CDT LABORATORY Glucose Urine >=1000(A) Negative mg/dL 03/08/2024 8:53 AM CDT LABORATORY Bilirubin Urine Negative Negative 8:53 AM CDT LABORATORY Ketones Urine Negative Negative mg/dL 03/08/2024 8:53 AM CDT LABORATORY Specific Geff Urine 1.023 1.003 - 1.035 03/08/2024 8:53 [...] - URINE ORDERABLES Fin al Result LABORATORY [facility] [address] Lab (1st floor, no room number) [place] [address], [facility] * (ABNORMAL) Basic metabolic panel [...] BLOOD ORDERABLES Fin al Result RH LABORATORY [facility] [address] [facility] Lab (1st floor, no room number) [place] [address], [facility] * (ABNORMAL) Blood gas venous [...] ORDERABLES Fin al Result Performing Organization Address City/[facility]/ZIP Co de Phone Number [facility] [address] [facility] Lab (1st floor, no room number) [address] * Extra Purple Top Tube (03/07/2024 7:02 PM CDT) Hold Specimen [facility] 03/07/2024 8:07 PM CDT RH LABORATORY Blood STRUCTURE OF RIGHT UPPER LIMB / Unknown Venipuncture / Unknown 03/07/2024 7:02 PM CDT 03/07/2024 7:07 PM CDT Sandra Monroy MD LAB - BLOOD ORDERABLES Fin al Result Performing Organization Address [facility] Co de Phone Number [facility] Acute Care Lab [address] Lab (1st floor, no room number) [address] * Extra Red Top Tube (03/07/2024 7:02 PM CDT) Hold Specimen JI 03/07/2024 8:07 PM CDT RH LABORATORY Blood STRUCTURE OF RIGHT UPPER LIMB / Unknown Venipuncture / Unknown 03/07/2024 7:02 PM CDT 03/07/2024 7:07 PM CDT Sandra Monroy MD LAB - BLOOD ORDERABLES Fin al Result Performing Organization Address City/[facility] Co de Phone Number LABORATORY [facility] [address] Lab (1st floor, no room number) [place] [phone] [place] [address] * Extra Blue Top Tube (03/07/2024 7:02 PM CDT) Hold Specimen JIC 03/07/2024 8:07 PM CDT LABORATORY Blood STRUCTURE OF RIGHT UPPER LIMB / Unknown Venipuncture / Unknown 03/07/2024 7:02 PM CDT 03/07/2024 7:07 PM CDT us Sandra Monroy MD LAB - BLOOD ORDERABLES Hemant al Result Performing Organization Address [facility]/ZIP Co de Phone Number [facility] Lab [address] Lab (1st floor, no room number) [place] [phone] * (ABNORMAL) Ketone Beta-Hydroxybutyrate Quantitative (03/07/2024 7:02 PM CDT) Pathologist [facility] Ketone (Beta-Hydroxybuty rate) Quantitative 0.44(H) <=0.30 mmol/L 03/07/2024 8:09 PM CDT LABORATORY Blood STRUCTURE OF RIGHT UPPER LIMB / Unknown Venipuncture / Unknown 03/07/2024 7:02 PM CDT 03/07/2024 7:07 PM CDT us Sandra Monroy MD LAB - BLOOD ORDERABLES Fin al Result Performing Organization Address City/[facility]/ZIP Co de Phone Number LABORATORY [facility] [address] Lab (1st floor, no room number) [place] [phone], [facility] * (ABNORMAL) CBC with platelets [...] - BLOOD ORDERABLES Final Result RH LABORATORY [facility] [address] [facility] Lab (1st floor, no room number) [place] [address] * Adult Type and Screen (12/28/2023 6:41 PM CDT) ABO/RH(D) A POS 12/28/2023 6:28 PM CDT RH BLOOD BANK Antibody Screen Negative Negative 12/28/2023 6:28 PM CDT RH BLOOD BANK SPECIMEN EXPIRATION DATE [id number] 12/28/2023 6:28 PM CDT RH BLOOD BANK Blood STRUCTURE OF RIGHT UPPER LIMB / Unknown Venipuncture / Unknown 12/28/2023 6:41 PM CDT 12/28/2023 6:46 PM CDT Agustin Cesar MD LAB - BLOOD BANK TEST O RDER Final Result RH BLOOD BANK [address] [place] [address] * INR (12/28/2023 6:41 PM CDT) INR 1.01 0.85 - 1.15 12/28/2023 7:00 PM CDT RH LABORATORY Blood STRUCTURE OF RIGHT UPPER LIMB / Unknown Venipuncture / Unknown 12/28/2023 6:41 PM CDT 12/28/2023 6:46 PM CDT Agustin Cesar MD LAB - BLOOD ORDERABLES Final Result Performing Organization Address City/[facility]/ZIP Co de Phone Number LABORATORY [facility] [address] Lab (1st floor, no room number) [place] [address] * Partial thromboplastin time (12/28/2023 6:41 PM CDT) aPTT 28 22 - 38 Seconds 12/28/2023 7:00 PM CDT LABORATORY Blood STRUCTURE OF RIGHT UPPER LIMB / Unknown Venipuncture / Unknown 12/28/2023 6:41 PM CDT 12/28/2023 6:46 PM CDT Agustin Cesar MD LAB - BLOOD ORDERABLES Final Result Performing Organization Address [facility]/ZIP Co de Phone Number LABORATORY [facility] [address] Lab (1st floor, no room number) [place] [address] * (ABNORMAL) Comprehensive metabolic panel (12/28/2023 [...] LAB - BLOOD ORDERABLES Final Result LABORATORY [facility] [address] [facility] Lab (1st floor, no room number) [place] [address] * (ABNORMAL) Hemoglobin A1c (10/15/2023 3:13 PM CDT) Hemoglobin A1C 10.8(H) <5.7 % 10/15/2023 4:57 PM CDT RH LABORATORY Comment: Normal <5.7% Prediabetes 5.7-6.4% ?? Diabetes 6.5% or higher Note: Adopted from ADA consensus guidelines. 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 Expl anation Advance Directives and Living [...] yissel nt/ legal decision maker Care Teams Junior Database Administrator Relationship Specialty Start Date End Date Services, [facility] Physician [address] [place] [address] PCP - General 05/22/21 Prince Tobar MD [address] [place] [address] [phone] Cardiovascular Disease 03/26/22 Prince Tobar MD [address] [place] [address] 710145 Assigned Heart and Vascular Provider 05/30/22 Matilde Pérez PA-C [address] [place] [address] Physician Manager People Physician Manager People - Surgical 12/30/23
--- OUTSIDE RECORDS SUMMARY | 2024-03-11 15:33 | XMS_ITS | Encounter Summary ---
Author Organization [place] Address [address] [facility] [place] [address] Care Team Providers Care Prepress Stripper Name Role Phone Services, [facility] Physician Primary Care Provi sadia Prince Tobar MD Unavailable Prince Tobar MD Unavailable Matilde Pérez PA-C Unavailable Reason for Visit * Reason Comments Hyperglycemia Social Work Services Encounter Details Date Type Department Care Team (Late st Contact Info) Description 03/07/2024 5:35 PM CDT - 03/08/2024 8:21 PM CDT Emergency [facility] Emergency Dept [address] [place] [address] Sandra Monroy MD [facility] [address] [place], [place] [id number] Tex David MD [facility] [address] [place] [address] Vera Lopez DO [facility] [place] [address] [place] [address] Hyperglycemia (Primary Dx); Urinary tract infection [...] on file Legal Sex Male 3:35 AM STATION COOK Gender Identity Not on file Sexual Orientation Choose not to disclose 2021 8:14 AM STATION COOK documented as of this encounter Last Filed [...] Everywhere. * UTI (Urinary Tract Infection): Male (Palestinian) * Hyperglycemia: General Info (Palestinian) documented in this encounter Medications at Time [...] mouth daily cholecalciferol (VITAMIN D3) 1250 mcg (27579 units) capsule Take 1,250 mcg by mouth [...] 200 mg by mouth daily nystatin (MYCOSTATIN) 904314 UNIT/GM external powder Apply topically 2 times [...] this encounter Consult Notes * Teresa Alexander, [facility] - 03/08/2024 5:47 PM CDTAssociated Order(s): CARE MANAGEMENT / SOCIAL WORK IP CONSULT; CARE MANAGEMENT / SOCIAL WORK IP CONSULT Summary: Discharge Planning Care Management Medical Senior Living Outpatient Consult Care management consulted by provider for retirement assessment. CM spoke with provider to discuss retirement case. Provider has confirmed patient is medically stable for discharge. Background information: Patient was brought into the ED via EMS because of blood sugars and the fpc didn't have any insulin or pens for insulin to give them. Care team recommended discharge disposition: Return to his fpc Resources needed for discharge: needs medications, insulin and pens Discharge plan secured to meet patient's needs? Yes Estimated timeline for discharge: less than 24 hours Barriers to discharge: Getting patient insulin Discussed above with provider & auditor in charge. Next steps: Anticipate patient will discharge within the next 24 hours to fpc with medication support/resources for follow-up. Patient has an established discharge plan that can meet their needs as identified above. SW met with patient, all he wants to do is return to the fpc. AGATA spoke with patient guardian, Joycelyn reported that the fpc is having difficulty getting patient's insulin. She reports it is due to the fpc changing pharmacies. SW verified patient's MA number which is active. Several calls placed to fpc's pharmacy, [facility]. They wee not able to verified medications. Spoke with the RN at the fpc,Fany [phone]. She reports that she has been calling pharmacy for the insulin but has not received it. [facility] is a mail in pharmacy so fpc isn't sure when they will get the insulin. AGATA discussed with MD and charge nurse, plan was to see if the medications can be filled here. Once patient's insulin and pen can be verified. Patient will return to fpc via wheelchair. ACE Palacio Equipment Operator/Laborer Inpatient Care Coordination Pump Service Supervisor Assistant Corporate Secretary [facility] [phone] ACE Haque documented in this encounter ED Notes * Chiki Rajan MD - 03/08/2024 8:21 PM CDT SW arranged home. Insulin per med rec filled here and Rx for home. Chiki Rajan MD 03/11/24 0023 * Lena Mathis RN - 03/08/2024 5:18 PM CDT Spoke with Fany, nurse assistant inventory manager several times. She accepted report and [...] male with history of DM presenting from fpc. He reports facility ran out of insulin [...] - 03/07/2024 7:53 PM CDT Fany Nurse Manager Of Medical at the [facility] phone: [phone]. Dianne Duct Layer: [phone] Fayn states pt receives Humulin 100u TID and [...] hyperglycemia and social work issue. Patientreports his fpc staff checked his blood sugar to be high. He states he does not feel sick. No fever, headache, chest pain, or diarrhea. Per EMS, fpc facility informed them that insulin ran out [...] MG tablet cholecalciferol (VITAMIN D3) 1250 mcg (74685 units) capsule clotrimazole (LOTRIMIN) 1 % external [...] hr tablet nitroGLYcerin 0.2% ointment nystatin (MYCOSTATIN) 432809 UNIT/GM external powder pantoprazole (PROTONIX) 40 MG [...] TID and Basaglar 30 units BID. Sandra [phone] I spoke with Andressa, pharmacist, regarding the patient. Wed Mar 08, 2024 0116 Tried to talk to about dispo planning 0125 I reassessed the patient and discussed plan. He agrees. Additional Documentation None Medical Decision Making / Diagnosis [facility] Diagnoses: None MIPS None MDM Leonid Leahy [...] deemed safe to go back to his fpc. It is also quite difficult to get a hold of the fpc staff. Therefore we will watch the patient [...] 03/07/2024 5:01 PM CDT Patient THAD from fpc for concerns of hyperglycemia. Upon EMS arrival [...] Emergency Department Pharmacist Note: Prescriptions sent to [facility] pharmacy for Lantus and Humulin U-500 pens. [facility] pharmacy called and is unable to fill the Lantus as refill too soon. Attempted to call pt's [facility] but they are closed. So called Nurse Manager Of Medical, Fany, for the fpc #[phone]. She stated that [facility] was able to fill both the Basaglar and Humulin U-500 pens yesterday and today and both are being delivered tonight. She was told that the Humulin U-500 would be delivered between [phone] and the Basaglar would be delivered after [...] U-500 is being delivered tonight. Spoke with [facility] Pharmacy, they only have one U-500 pen in stock and so will dispense the one pen. This will be enough to get patient by until the [facility] delivery is delivered to his fpc this evening after 1999. No further action required. Andressa Buitrago, PharmD, [facility] Emergency Medicine Pharmacist [phone] or Deven March 08, 2024 documented in [...] Glucose by meter (03/08/2024 6:50 PM CDT) [facility] GLUCOSE BY METER POCT 131(H) 70 - 99 mg/dL 03/08/2024 6:57 PM CDT LABORATORY POC Blood, Capillary BLOOD SPECIMEN / Unknown 03/08/2024 6:50 PM CDT 03/08/2024 6:57 PM CDT us Vera Lopez DO LAB - BEAKER POCT Final Re sult LABORATORY [facility] [address] Lab (1st floor, no room number) [place] [phone] [place] [address] * (ABNORMAL) Glucose by meter (03/08/2024 4:21 PM CDT) GLUCOSE BY METER POCT 192(H) 70 - 99 mg/dL 03/08/2024 4:34 PM CDT LABORATORY POC Blood, Capillary BLOOD SPECIMEN / Unknown 03/08/2024 4:21 PM CDT 03/08/2024 4:34 PM CDT Vera Lopez DO LAB - BEAKER POCT Final Re sult Performing Organization Address [facility]/ZIP Co de Phone Number LABORATORY [facility] [address] Lab (1st floor, no room number) [place] [phone] [place] [address] * (ABNORMAL) Glucose by meter (03/08/2024 12:20 PM CDT) GLUCOSE BY METER POCT 202(H) 70 - 99 mg/dL 03/08/2024 12:26 PM CDT LABORATORY POC Blood, Capillary BLOOD SPECIMEN / Unknown 03/08/2024 12:20 PM CDT 03/08/2024 12:26 PM CDT Vera Lopez DO LAB - BEAKER POCT Final Re sult LABORATORY [facility] [address] Lab (1st floor, no room number) [place] [phone] * (ABNORMAL) UA with Microscopic (03/08/2024 8:29 AM CDT) Color Urine Dark Brown(A) Colorless, Straw, Light Yellow, Yellow 03/08/2024 8:53 AM CDT LABORATORY Appearance Urine Cloudy(A) Clear 03/08/20 8:53 AM CDT LABORATORY Glucose Urine >=1000(A) Negative mg/dL 03/08/2024 8:53 AM CDT LABORATORY Bilirubin Urine Negative Negative 8:53 AM CDT LABORATORY Ketones Urine Negative Negative mg/dL 03/08/2024 8:53 AM CDT LABORATORY [place] Urine 1.023 1.003 - 1.035 03/08/2024 8:53 [...] - URINE ORDERABLES Fin al Result LABORATORY [facility] Acute Care Lab [address] Lab (1st floor, no room number) [place] [address], [facility] * (ABNORMAL) Glucose by meter (03/08/2024 8:07 AM CDT) GLUCOSE BY METER POCT 294(H) 70 - 99 mg/dL 03/08/2024 8:20 AM CDT RH LABORATORY POC Blood, venous BLOOD SPECIMEN / Unknown 03/08/2024 8:07 AM CDT 03/08/2024 8:20 AM CDT us Tex David MD LAB - BEAKER POCT Final Resu lt LABORATORY [facility] [address] Lab (1st floor, no room number) [place] [address] * (ABNORMAL) Glucose by meter (03/08/2024 5:58 AM CDT) GLUCOSE BY METER POCT 346(H) 70 - 99 mg/dL 03/08/2024 6:05 AM CDT LABORATORY POC Blood, Capillary BLOOD SPECIMEN / Unknown 03/08/2024 5:58 AM CDT 03/08/2024 6:05 AM CDT us Tex David MD LAB - BEAKER POCT Final Resu lt Performing Organization Address [facility]/ZIP Co de Phone Number LABORATORY [facility] Lab [address] Lab (1st floor, no room number) [place] [address] * (ABNORMAL) Glucose by meter (03/08/2024 4:10 AM CDT) GLUCOSE BY METER POCT 413(H) 70 - 99 mg/dL 03/08/2024 4:17 AM CDT LABORATORY POC Blood, Capillary BLOOD SPECIMEN / Unknown 03/08/2024 4:10 AM CDT 03/08/2024 4:17 AM CDT us Tex David MD LAB - BEAKER POCT Final Resu lt LABORATORY [facility] [address] Lab (1st floor, no room number) [place] [address], [facility] * (ABNORMAL) Glucose by meter (03/08/2024 2:54 AM CDT) GLUCOSE BY METER POCT 347(H) 70 - 99 mg/dL 03/08/2024 3:01 AM CDT LABORATORY POC Blood, Capillary BLOOD SPECIMEN / Unknown 03/08/2024 2:54 AM CDT 03/08/2024 3:01 AM CDT Tex David MD LAB - BEAKER POCT Final Resu lt LABORATORY [facility] Acute Care Lab [address] Lab (1st floor, no room number) [place] [address] * (ABNORMAL) Glucose by meter (03/08/2024 1:48 AM CDT) GLUCOSE BY METER POCT 401(H) 70 - 99 mg/dL 03/08/2024 2:31 AM CDT LABORATORY POC Blood, Capillary BLOOD SPECIMEN / Unknown 03/08/2024 1:48 AM CDT 03/08/2024 2:31 AM CDT Sandra Monroy MD LAB - BEAKER POCT Final Re sult LABORATORY [facility] [address] Lab (1st floor, no room number) [place] [address] * (ABNORMAL) Basic metabolic panel (BMP) [...] BLOOD ORDERABLES Fin al Result RH LABORATORY [facility] Acute Care Lab [address] Lab (1st floor, no room number) [place] [address], [facility] * (ABNORMAL) [...] LAB - BLOOD ORDERABLES Hemant franz Result [facility] Acute Care Lab [address] Lab (1st floor, no room number) [place] [address], [facility] * (ABNORMAL) Ketone Beta-Hydroxybutyrate Quantitative (03/07/2024 7:02 PM CDT) Ketone (Beta-Hydroxybuty rate) Quantitative 0.44(H) <=0.30 mmol/L 03/07/2024 8:09 PM CDT RH LABORATORY Blood STRUCTURE OF RIGHT UPPER LIMB / Unknown Venipuncture / Unknown 03/07/2024 7:02 PM CDT 03/07/2024 7:07 PM CDT us Sandra Monroy MD LAB - BLOOD ORDERABLES Hemant franz Result [facility] Acute Care Lab [address] Lab (1st floor, no room number) [place] [address], [facility] * (ABNORMAL) Glucose by meter (03/07/2024 7:02 PM CDT) GLUCOSE BY METER POCT 388(H) 70 - 99 mg/dL 03/07/2024 7:09 PM CDT LABORATORY POC Blood, venous BLOOD SPECIMEN / Unknown 03/07/2024 7:02 PM CDT 03/07/2024 7:09 PM CDT us Sandra Monroy MD LAB - BEAKER POCT Final Re sult Performing Organization Address City/[facility]/ZIP Co de Phone Number LABORATORY [facility] Lab [address] Lab (1st floor, no room number) [place] [address], [facility] * Extra Purple Top Tube (03/07/2024 7:02 PM CDT) Hold Specimen [facility] 03/07/2024 8:07 PM CDT LABORATORY Blood STRUCTURE OF RIGHT UPPER LIMB / Unknown Venipuncture / Unknown 03/07/2024 7:02 PM CDT 03/07/2024 7:07 PM CDT us Sandra Monroy MD LAB - BLOOD ORDERABLES Fin al Result [facility] Acute Care Lab [address] Lab (1st floor, no room number) [place] [address], [facility] * Extra Red Top Tube (03/07/2024 7:02 PM CDT) Hold Specimen JI 03/07/2024 8:07 PM CDT LABORATORY Blood STRUCTURE OF RIGHT UPPER LIMB / Unknown Venipuncture / Unknown 03/07/2024 7:02 PM CDT 03/07/2024 7:07 PM CDT us Sandra Monroy MD LAB - BLOOD ORDERABLES Fin al Result LABORATORY [facility] Acute Care Lab [address] Lab (1st floor, no room number) [place] [phone] [place] [address] * Extra Blue Top Tube (03/07/2024 7:02 PM CDT) Hold Specimen JIC 03/07/2024 8:07 PM CDT LABORATORY Blood STRUCTURE OF RIGHT UPPER LIMB / Unknown Venipuncture / Unknown 03/07/2024 7:02 PM CDT 03/07/2024 7:07 PM CDT Sandra Monroy MD LAB - BLOOD ORDERABLES Fin al Result Performing Organization Address [facility]/ZIP Co de Phone Number LABORATORY [facility] Lab [address] Lab (1st floor, no room number) [address] * (ABNORMAL) Basic metabolic panel (03/07/2024 [...] - BLOOD ORDERABLES Fin al Result LABORATORY [facility] Acute Care Lab [address] [facility] Lab (1st floor, no room number) [place] [address] documented in this encounter Visit Diagnoses [...] Urinary Tract Infection 1245 ($Given - Provi sdaia: Rae Irene RN - Comment: meds not [...] RN) documented in this encounter Care Teams Prepress Stripper Relationship Specialty Start Date End Date Services, [facility] Physician [address] [place] [address] PCP - General 05/22/21 Prince Tobar MD [address] [place] [address] [phone] Cardiovascular Disease 03/26/22 Prince Tobar MD [address] [place] [address] [phone] Assigned Heart and Vascular Provider 05/30/22 Matilde Pérez PA-C [address] [place] [address] [phone] Physician Air Traffic Instructor Physician Air Traffic Instructor - Surgical 12/30/23 documented as of this encounter
--- OUTSIDE RECORDS SUMMARY | 2024-03-11 15:33 | XMS_ITS | Encounter Summary ---
Author Organization [place] Address [address] [facility] [place] [address] Care Team Providers Care Hand Baseball Sewer Name Role Phone Services, [facility] Physician Primary Care Provi sadia Prince Tobar MD Unavailable [phone] Prince Tobar MD Unavailable [phone] Reason for Referral * Consultation (Priority: 1-2 Weeks) - Pending Review Specialty Diagnoses / Procedures Referred By Contjohnny t Referred To Contact Colon and Rectal Surgery Diagnoses Anal fissure External hemorrhoids Reinaldo Beltran PA-C [facility] [address] [address] [place] [phone] Phone: tel: fax: Referral ID Status Reason Start Date Expiration Date V isits Requested Visits Authorized [id number] Pending Review 12/28/2023 12/27/2024 1 1 Question Answer Reason for Referral: Anal Fissure Special Concerns: Other My Clinical Question Is: Anal fissure, taking Apixaban Scheduling Instructions: [facility] will call you to coordinate care as prescribed your provider. If you don? t hear from a financial services representative within 2 business days, please call . Comments Please be aware that coverage of these services is subject to the terms and limitations of your health insurance plan. Call member services at your health plan with any benefit or coverage questions. [facility] will call you to coordinate care as prescribed your provider. If you don? t hear from a financial services representative within 2 business days, please call . 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 The bleeding you noted [...] mouth daily cholecalciferol (VITAMIN D3) 1250 mcg (05127 units) capsule Take 1,250 mcg by mouth [...] 7 days 4 g 12/28/2023 nystatin (MYCOSTATIN) 076826 UNIT/GM external powder Apply topically 2 times [...] MG tablet cholecalciferol (VITAMIN D3) 1250 mcg (64070 units) capsule clotrimazole (LOTRIMIN) 1 % external [...] 200 MG 24 hr tablet nystatin (MYCOSTATIN) 709197 UNIT/GM external powder pantoprazole (PROTONIX) 40 MG [...] POS Antibody Screen Negative SPECIMEN EXPIRATION DATE [id number] ABO/RH TYPE AND SCREEN Emergency Department Course [...] 1. Anal fissure K60.2 Adult Colorectal Surgery Head Grinder Referral 2. External hemorrhoids K64.4 Adult Colorectal Surgery Head Grinder Referral Discharge Medications: New Prescriptions HYDROCORTISONE, PERIANAL, [...] yesterday, he went to a clinic in [place], he is unsure of what was done [...] MG tablet cholecalciferol (VITAMIN D3) 1250 mcg (46735 units) capsule clotrimazole (LOTRIMIN) 1 % external [...] 200 MG 24 hr tablet nystatin (MYCOSTATIN) 074437 UNIT/GM external powder pantoprazole (PROTONIX) 40 MG [...] POS Antibody Screen Negative SPECIMEN EXPIRATION DATE [id number] ABO/RH TYPE AND SCREEN Imaging No orders to display Independent Interpretation None ED Course Medications Administered Medications - No data to display Procedures Procedures Discussion of Management Staffed with Dr. Cesar ED Course ED Course as of 12/28/231936Dec 28, 20231838 I evaluated and examined the patient 1902 Rectal exam with RN at bedside Additional Documentation None Medical Decision Making / Diagnosis [facility] Diagnoses: None MIPS None [facility] Leonid Leahy is a 63 year [...] 1. Anal fissure K60.2 Adult Colorectal Surgery Head Grinder Referral 2. External hemorrhoids K64.4 Adult Colorectal Surgery Head Grinder Referral Discharge Medications New Prescriptions HYDROCORTISONE, PERIANAL, [...] Pt comes from assisted living facility in [place]. * Tamiko Monzon RN - 12/28/2023 6:08 PM CDT Bed: ED01 Expected date: Expected time: Means of arrival: Comments: [id number] documented in this encounter Plan of Treatment Scheduled Referrals Name Type Priority Associated Diagnoses Orde r Schedule Adult Colorectal Surgery Head Grinder Referral Referral Priority: 1-2 Weeks Anal fissure [...] CDT RH BLOOD BANK SPECIMEN EXPIRATION DATE [id number] 12/28/2023 6:28 PM CDT RH BLOOD BANK Blood STRUCTURE OF RIGHT UPPER LIMB / Unknown Venipuncture / Unknown 12/28/2023 6:41 PM CDT 12/28/2023 6:46 PM CDT Agustin Cesar MD LAB - BLOOD BANK TEST O RDER Final Result BLOOD BANK [facility] [place] [address], [facility] * (ABNORMAL) CBC with [...] LAB - BLOOD ORDERABLES Final Result LABORATORY [facility] Acute Care Lab [address] Lab (1st floor, no room number) [place] [address], [facility] * (ABNORMAL) Comprehensive metabolic [...] MD LAB - BLOOD ORDERABLES Final Result [facility] Lab [address] Lab (1st floor, no room number) [place] [address] [[email or web address]] * Partial thromboplastin time (12/28/2023 6:41 PM CDT) aPTT 28 22 - 38 Seconds 12/28/2023 7:00 PM CDT RH LABORATORY Blood STRUCTURE OF RIGHT UPPER LIMB / Unknown Venipuncture / Unknown 12/28/2023 6:41 PM CDT 12/28/2023 6:46 PM CDT Agustin Cesar MD LAB - BLOOD ORDERABLES Final Result [facility] Acute Care Lab [address] Lab (1st floor, no room number) [place] [address] [[email or web address]] * INR (12/28/2023 6:41 PM CDT) INR 1.01 0.85 - 1.15 12/28/2023 7:00 PM CDT RH LABORATORY Blood STRUCTURE OF RIGHT UPPER LIMB / Unknown Venipuncture / Unknown 12/28/2023 6:41 PM CDT 12/28/2023 6:46 PM CDT us Agustin Cesar MD LAB - BLOOD ORDERABLES Final Result [facility] Acute Care Lab [address] Lab (1st floor, no room number) [place] [address], [facility] documented in this encounter Visit Diagnoses Diagnosis Anal fissure External hemorrhoids External hemorrhoids without mention of complication documented in this encounter Care Teams Hand Baseball Sewer Relationship Specialty Start Date End Date Services, [facility] Physician [address] [place] [address] PCP - General 05/22/21 Prince Tobar MD [address] [place] [address] Cardiovascular Disease 03/26/22 Prince Tobar MD [address] [place] [address] Assigned Heart and Vascular Provider 05/30/22 documented as of this encounter
--- OUTSIDE RECORDS SUMMARY | 2024-03-11 15:33 | XMS_ITS | Encounter Summary ---
Author Organization [place] Address [address] 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 Gender Identity Not on file Sexual Orientation Choose not to disclose 2021 8:14 AM CHIEF GROWTH OFFICER documented as of this encounter Plan of Treatment Not on file documented as of this encounter Visit Diagnoses Not on filedocumented in this encounter Care Teams Diesel Engineer Relationship Specialty Start Date End Date Services, [place] Physician [address] [place] [address], [facility] [address] [place] [address] PCP - General 05/22/21 Prince Tobar MD [address] [place] [address] Cardiovascular Disease 03/26/22 Prince Tobar MD [address] [place] [address] Assigned Heart and Vascular Provider 05/30/22 Matilde Pérez PA-C [address] [place] [address] [phone] Physician Racehorse Trainer Physician Racehorse Trainer - Surgical 12/30/23 documented as of this encounter
--- OUTSIDE RECORDS SUMMARY | 2024-03-11 15:33 | XMS_ITS | Encounter Summary ---
Author Organization [place] Address [address] [facility] 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 Gender Identity Not on file Sexual Orientation Choose not to disclose 2021 8:14 AM VB DEVELOPER documented as of this encounter Plan of Treatment Not on file documented as of this encounter Visit Diagnoses Not on filedocumented in this encounter Care Teams Marketing Support Coordinator Relationship Specialty Start Date End Date Services, [facility] Physician [address] [place] [address] PCP - General 05/22/21 Prince Tobar MD [address] [place], [place] [address] Cardiovascular Disease 03/26/22 Prince Tobar MD [address] [place] [address] Assigned Heart and Vascular Provider 05/30/22 documented as of this encounter
--- OUTSIDE RECORDS SUMMARY | 2024-03-11 15:33 | XMS_ITS | Clinical Summary ---
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 RN Drum Printer, Juanita Yoo, notified and she will attempt [...] No, referral made to Advance Care Plan Care Technician. Patient has identified Specific Treatment Preferences: No Sophia Méndez RN .................... 07/06/2011 2:30 PM] Specific limits to treatment preferences NOT identified: ASSUME FULL TREATMENT. Assessment & Plan (05/25/2012 12:51 PM TIP PRINTER): Advance Care Planning: Disease-specific Session Leonid Leahy is a [facility] patient. His PCP is Leandra Limon at [facility]. Advance care planning discussions were completed with Leonid. He identified his sister, Brittany Suggs, as his healthcare agent. Brittany was not present for ACP session. Understanding of Illness and Disease [place]: Leonid identifies his medical condition as what [...] to live well: Daily visit to local [employer] for a pop and to visit and catch up in the news with locals. Leonid obed with serious challenges in his life: Support of his sister, only a phone call away. Helps manage [facility] services. Leonid identifies the following fears and [...] and primary care provider. Hard Choices for [place] People booklet was sent to Leonid and his health care agent for review. Leonid requested all information be mailed to his sister and sign writer hand to place call to sister to explain process. Leonid identified the following concerns during his advance care planning session: needing assistance at home to ensure he is managing his medications and treatments to keep going as is and stabilizing. Is followed by [facility] for needed services. Questions identified for his primary care provider: none Documents addressed during this advance care planning session: Health Care Directive completed and scanned into medical record. Statement of Treatment Preferences for advanced illness completed and scanned into the medical record. Recommendations/Plan: Leonid to review Advance Care Plan with Leonid's healthcare agent. Computer Programming Professor will be contacting Leonid's [facility] to explain services rendered, Leonid would benefit from: Home Care and/or Hospice when / if appropriate. [facility] services involved, [facility] supports coordination of medical asistance. Care [...] 2:27 PM Sophia Méndez RN RN [facility] - [facility] [phone] Vitamin D deficiency 01/06/2011 011 Neuropathy 09/25/2010 [...] 176.9 kg (390 lb) 07/14/2022 6:10 PM TIP PRINTER Height 167.6 cm (5' 6) 07/14/2022 6:10 PM TIP PRINTER Body Mass Index 62.95 07/14/2022 6:10 PM TIP PRINTER Plan of Treatment Health Maintenance Due Date [...] Kay García Medical Devices Implanted Type Area Hat Presser Device Identifier Shelf Expiration Date Model / Serial / Lot Iol Gates +20 Tecnis Zcb00 - [id number] Implanted:Qty: 1 on 07/15/2022 by Tanner Fuentes MD at [facility] Left: Eye [employer] 06/24/2025 ZCB00 20.0 / [id number] / Iol Gates +20 Tecnis Zcb00 - [id number] Implanted:Qty: 1 on 08/19/2022 by Tanner Fuentes MD at [facility] Right: Eye [employer] 06/24/2025 ZCB00 20.0 / [id number] / Procedures Procedure Name Priority Date/Time Associated Diagnosis Comments LIPID PANEL Routine 03/13/2019 2:31 PM CDT Essential hypertriglyceridemia from Last 3 Months or Most Recently Relevant to Health Maintenance Results * (ABNORMAL) LIPID PANEL (03/13/2019 2:31 PM CDT) [facility] CHOLESTEROL,TOTAL 193 100 - 199 mg/dL 03/13/2019 9:25 PM CDT [facility] TRAL LABORATORY TRIGLYCERIDES 715(H) <150 mg/dL 03/13/2019 9:25 PM CDT [facility] LAB[facility] HDL CHOLESTEROL 29(L) >40 mg/dL 9 9:25 PM CDT [facility] TRAL LABORATORY NON-HDL CHOLESTEROL 164(H) <145 mg/dl 03/13/2019 9:25 PM CDT [facility] TRAL LABORATORY CHOL/HDL RATIO 6.66(H) <4.50 03/13/2019 9:25 PM CDT [facility] TRAL LABORATORY LDL CHOLESTEROL 9 9:25 PM CDT [facility] TRAL LABORATORY Comment:Invalid LDL when Tri g >400. PROVIDER ORDERED STATUS RANDOM 03/13/2019 9:25 PM CDT [facility] TRAL LABORATORY Blood BLOOD SPECIMEN / Unknown Venipuncture / Unknown 03/13/2019 2:31 PM CDT 03/13/2019 2:31 PM CDT Suellen Sosa MD CHEMISTRY [facility] LABORATORY-CENTRAL LABORATORY 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 PCP - General 07/15/22 Alan Lopez MD Internal Medicine Internal Medicine 11/20/10 Nishant Watson MD [address] [place] [address] Endocrinology 08/15/13
== END 2024-03-06 10:35 | disposition home or self-care (01) ==
LOC: AMB 03-11 15:14
PROVIDERS: Visit Provider Emergency Medicine
DX: M53.3 Sacrococcygeal disorders, not elsewhere classified (principal)
CPT/HCPCS: A0425; A0428

== ENCOUNTER 2024-03-07 16:14 | Outpatient (CLI) | payer MEDICARE, MEDICAID, SELFPAY ==
--- OUTSIDE RECORDS SUMMARY | 2024-03-13 23:11 | XMS_ITS | Clinical Summary ---
Author Organization [facility] Address [address] [place] [address] Phone Care Team Providers Care Reel Assembler Name Role Phone Mellisa Shirley PA-C Primary Care Provider [phone] Allergies Active Allergy Reactions Criticality Noted Date [...] 2 Active cholecalciferol (VITAMIN D-3) 1.25 MG (61821 UT) capsule Take 1,250 mcg by mouth [...] topic Insurance [place]ICAID [place] MEDICARE Care Teams Reel Assembler Relationship Specialty Start Date End Date Mellisa Shirley PA-C PCP - General Physician Molder Fitting 08/31/22
--- OUTSIDE RECORDS SUMMARY | 2024-03-13 23:11 | XMS_ITS | Clinical Summary ---
Author Organization [place] Address [address] [facility] [place] [address] Care Team Providers Care Courtesy Booth Cashier Name Role Phone Services, [facility] [...] daily Active cholecalciferol (VITAMIN D3) 1250 mcg (60993 units) capsule Take 1,250 mcg by mouth every 7 days on Wednesdays. Active venlafaxine (EFFEXOR-XR) 75 MG 24 hr capsule Take 225 mg by mouth daily Active hydrALAZINE (APRESOLINE) 50 MG tablet Take 50 mg by mouth 4 times daily Active polyethylene glycol (MIRALAX) 17 GM/Dose powder Take 17 g by mouth daily Active nystatin (MYCOSTATIN) 701653 UNIT/GM external powder Apply topically 2 times [...] [facility] [address] [address] Matilde Pérez PA-C Previsit 03/07/2024 5:35 PM CDT - 03/08/2024 8:[address] [facility] Emergency Dept [address] [place] [address] Sandra Monroy MD [place], Samuel, MD McDonald, Lindsey E, Hyperglycemia (Primary Dx); Urinary tract infection with hematuria, site unspecified Discharge Disposition: Home or Self Care 03/07/2024 Travel 12/28/2023 6:08 PM CDT - 12/29/2023 12:[address] 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..] - URINE ORDERABLES Fin al Result LABORATORY [facility] [address] Lab (1st floor, no room number) [place] [address], [place] * (ABNORMAL) Basic metabolic panel (BMP) (03/07/2024 [...] BLOOD ORDERABLES Fin al Result RH LABORATORY [facility] [address] [facility] Lab (1st floor, no room number) [place] [address], [place] * (ABNORMAL) Blood gas venous (03/07/2024 8:06 [...] ORDERABLES Fin al Result Performing Organization Address City/[facility]/ZIP Co de Phone Number [facility] Care Lab [address] Lab (1st floor, no room number) [address] * Extra Purple Top Tube (03/07/2024 7:02 PM CDT) Hold Specimen [facility] 03/07/2024 8:07 PM CDT RH LABORATORY Blood STRUCTURE OF RIGHT UPPER LIMB / Unknown Venipuncture / Unknown 03/07/2024 7:02 PM CDT 03/07/2024 7:07 PM CDT Sandra Monroy MD LAB - BLOOD ORDERABLES Fin al Result Performing Organization Address [facility] Co de Phone Number [facility] Care Lab [address] Lab (1st floor, no room number) [address] * Extra Red Top Tube (03/07/2024 7:02 PM CDT) Hold Specimen JI 03/07/2024 8:07 PM CDT RH LABORATORY Blood STRUCTURE OF RIGHT UPPER LIMB / Unknown Venipuncture / Unknown 03/07/2024 7:02 PM CDT 03/07/2024 7:07 PM CDT Sandra Monroy MD LAB - BLOOD ORDERABLES Fin al Result Performing Organization Address City/[facility] Co de Phone Number LABORATORY [facility] [address] Lab (1st floor, no room number) [place] [phone] [place] [address] * Extra Blue Top Tube (03/07/2024 7:02 PM CDT) Hold Specimen JIC 03/07/2024 8:07 PM CDT LABORATORY Blood STRUCTURE OF RIGHT UPPER LIMB / Unknown Venipuncture / Unknown 03/07/2024 7:02 PM CDT 03/07/2024 7:07 PM CDT us Sandra Monroy MD LAB - BLOOD ORDERABLES Hemant al Result Performing Organization Address [facility]/ZIP Co de Phone Number [facility] Lab [address] Lab (1st floor, no room number) [place] [phone] * (ABNORMAL) Ketone Beta-Hydroxybutyrate Quantitative (03/07/2024 7:02 PM CDT) Pathologist [facility] Ketone (Beta-Hydroxybuty rate) Quantitative 0.44(H) <=0.30 mmol/L 03/07/2024 8:09 PM CDT LABORATORY Blood STRUCTURE OF RIGHT UPPER LIMB / Unknown Venipuncture / Unknown 03/07/2024 7:02 PM CDT 03/07/2024 7:07 PM CDT us Sandra Monroy MD LAB - BLOOD ORDERABLES Fin al Result Performing Organization Address City/[facility]/ZIP Co de Phone Number LABORATORY [facility] [address] Lab (1st floor, no room number) [place] [phone], [place] * (ABNORMAL) CBC with platelets and differential [...] - BLOOD ORDERABLES Final Result RH LABORATORY [facility] [address] Lab (1st floor, no room number) [place] [address] * Adult Type and Screen (12/28/2023 6:41 PM CDT) ABO/RH(D) A POS 12/28/2023 6:28 PM CDT RH BLOOD BANK Antibody Screen Negative Negative 12/28/2023 6:28 PM CDT RH BLOOD BANK SPECIMEN EXPIRATION DATE [id number] 12/28/2023 6:28 PM CDT RH BLOOD BANK Blood STRUCTURE OF RIGHT UPPER LIMB / Unknown Venipuncture / Unknown 12/28/2023 6:41 PM CDT 12/28/2023 6:46 PM CDT Agustin Cesar MD LAB - BLOOD BANK TEST O RDER Final Result RH BLOOD BANK [address] [place] [address] * INR (12/28/2023 6:41 PM CDT) INR 1.01 0.85 - 1.15 12/28/2023 7:00 PM CDT RH LABORATORY Blood STRUCTURE OF RIGHT UPPER LIMB / Unknown Venipuncture / Unknown 12/28/2023 6:41 PM CDT 12/28/2023 6:46 PM CDT Agustin Cesar MD LAB - BLOOD ORDERABLES Final Result Performing Organization Address City/[facility]/ZIP Co de Phone Number LABORATORY [facility] [address] Lab (1st floor, no room number) [place] [address] * Partial thromboplastin time (12/28/2023 6:41 PM CDT) aPTT 28 22 - 38 Seconds 12/28/2023 7:00 PM CDT LABORATORY Blood STRUCTURE OF RIGHT UPPER LIMB / Unknown Venipuncture / Unknown 12/28/2023 6:41 PM CDT 12/28/2023 6:46 PM CDT Agustin Cesar MD LAB - BLOOD ORDERABLES Final Result Performing Organization Address [facility]/ZIP Co de Phone Number LABORATORY [facility] [address] Lab (1st floor, no room number) [place] [address] * (ABNORMAL) Comprehensive metabolic panel [...] LAB - BLOOD ORDERABLES Final Result LABORATORY [facility] [address] [facility] Lab (1st floor, no room number) [place] [address] * (ABNORMAL) Hemoglobin A1c (10/15/2023 3:13 PM CDT) Hemoglobin A1C 10.8(H) <5.7 % 10/15/2023 4:57 PM CDT RH LABORATORY Comment: Normal <5.7% Prediabetes 5.7-6.4% ?? Diabetes 6.5% or higher Note: Adopted from ADA consensus guidelines. Blood BLOOD SPECIMEN / Unknown Client Draw / Unknown 10/15/2023 3:13 PM CDT 10/15/2023 4:25 PM CDT Harrison Munson NP LAB - BLOOD ORDERABLES Final Result [facility] Lab [address] Lab (1st floor, no room number) [place] [address], [place] from Last 3 Months or Most Recently Relevant to Health Maintenance Insurance MEDICARE [place] Advance Directives For more information, please contact: [phone] Documents on File Type Date Recorded Patient Atmospheric Scientist Expl anation Advance Directives and Living Will [...] yissel nt/ legal decision maker Care Teams Courtesy Booth Cashier Relationship Specialty Start Date End Date Services, [facility] Physician [address] [place] [address] PCP - General 05/22/21 Prince Tobar MD [address] [place] [id number] Cardiovascular Disease 03/26/22 Prince Tobar MD [address] [place] [address] [phone] Assigned Heart and Vascular Provider 05/30/22 Matilde Pérez PA-C [address] [place] [address] Physician Special Tester Physician Special Tester - Surgical 12/30/23
--- OUTSIDE RECORDS SUMMARY | 2024-03-13 23:12 | XMS_ITS | Encounter Summary ---
Author Organization [place] Address [address] [facility] 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 Gender Identity Not on file Sexual Orientation Choose not to disclose 2021 8:14 AM SHIPPING CLERK documented as of this encounter Plan of Treatment Not on file documented as of this encounter Visit Diagnoses Not on filedocumented in this encounter Care Teams Bilingual Speech Language Pathologist Relationship Specialty Start Date End Date Services, [facility] Physician [address] [place] [address] PCP - General 05/22/21 Prince Tobar MD [address] [place], [place] [address] Cardiovascular Disease 03/26/22 Prince Tobar MD [address] [place] [address] Assigned Heart and Vascular Provider 05/30/22 documented as of this encounter
--- OUTSIDE RECORDS SUMMARY | 2024-03-13 23:12 | XMS_ITS | Referral Summary ---
Author Organization [place] Address [address] [facility] [place] [address] Care Team Providers Care Corporate Tutor Name Role Phone Services, [facility] Physician Primary Care Provi sadia Prince Tobar MD Unavailable Prince Tobar MD Unavailable Matilde Pérez PA-C Unavailable Encounters Date Type Department Care Team Description 03/08/2024 PRE VISIT [facility] [address] 4th [place] [address] Matilde Pérez PA-C Previsit 03/07/2024 5:35 PM CDT - 03/08/2024 8:21 PM CDT Emergency [facility] Emergency Dept [address] [place] [address] Sandra Monroy MD [place], Samuel, MD McDonald, Lindsey E, DO Hyperglycemia (Primary Dx); Urinary tract infection with hematuria, site unspecified Discharge Disposition: Home or Self Care 03/07/2024 Travel 12/28/2023 6:08 PM CDT - 12/29/2023 12:59 AM CDT Emergency [facility] Emergency Dept [address] [place] [address] Agustin Cesar MD Anal fissure; External hemorrhoids [...] daily Active cholecalciferol (VITAMIN D3) 1250 mcg (00541 units) capsule Take 1,250 mcg by mouth every 7 days on Wednesdays. 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 Gender Identity Not on file Sexual Orientation Choose not to disclose 2021 8:14 AM HEALTH PSYCHOLOGIST Last Filed Vital Signs Vital Sign Reading [...] without heart failure 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 Body mass [...] - BEAKER POCT Final Re sult LABORATORY [facility] Acute Care Lab [address] [facility] Lab (1st floor, no room number) [place] [address] * (ABNORMAL) UA with Microscopic (03/08/2024 8:29 AM CDT) Color Urine Dark Brown(A) Colorless, Straw, Light Yellow, Yellow 03/08/2024 8:53 AM CDT LABORATORY Appearance Urine Cloudy(A) Clear 03/08/20 8:53 AM CDT LABORATORY Glucose Urine >=1000(A) Negative mg/dL 03/08/2024 8:53 AM CDT LABORATORY Bilirubin Urine Negative Negative 8:53 AM CDT LABORATORY Ketones Urine Negative Negative mg/dL 03/08/2024 8:53 AM CDT LABORATORY Specific [place] Urine 1.023 1.003 - 1.035 03/08/2024 8:53 [...] - URINE ORDERABLES Fin al Result LABORATORY [facility] Acute Care Lab [address] Lab (1st floor, no room number) [place] [address] * (ABNORMAL) Basic metabolic panel (BMP) [...] BLOOD ORDERABLES Fin al Result RH LABORATORY [facility] Acute [facility] Lab [address] [facility] Lab (1st floor, no room number) [place] [address], [facility] * (ABNORMAL) Blood gas [...] [facility]/ZIP Co de Phone Number [facility] Lab [address] Lab (1st floor, no room number) [place] [address], [place] * Extra Purple Top Tube (03/07/2024 7:02 PM CDT) Hold Specimen [facility] 03/07/2024 8:07 PM CDT RH LABORATORY Blood STRUCTURE OF RIGHT UPPER LIMB / Unknown Venipuncture / Unknown 03/07/2024 7:02 PM CDT 03/07/2024 7:07 PM CDT us Sandra Monroy MD LAB - BLOOD ORDERABLES Fin al Result [facility] Care Lab [address] Lab (1st floor, no room number) [place] [address] * Extra Red Top Tube (03/07/2024 7:02 PM CDT) Hold Specimen [facility] 03/07/2024 8:07 PM CDT RH LABORATORY Blood STRUCTURE OF RIGHT UPPER LIMB / Unknown Venipuncture / Unknown 03/07/2024 7:02 PM CDT 03/07/2024 7:07 PM CDT Sanrda Monroy MD LAB - BLOOD ORDERABLES Fin al Result [facility] Care Lab [address] Lab (1st floor, no room number) [place] [address] * Extra Blue Top Tube (03/07/2024 7:02 PM CDT) Hold Specimen [facility] 03/07/2024 8:07 PM CDT LABORATORY Blood STRUCTURE OF RIGHT UPPER LIMB / Unknown Venipuncture / Unknown 03/07/2024 7:02 PM CDT 03/07/2024 7:07 PM CDT Sandra Monroy MD LAB - BLOOD ORDERABLES Fin al Result Performing Organization Address [facility] Co de Phone Number [facility] Lab [address] Lab (1st floor, no room number) [place] [address], [facility] * (ABNORMAL) Ketone Beta-Hydroxybutyrate Quantitative (03/07/2024 7:02 PM CDT) [facility] Ketone (Beta-Hydroxybuty rate) Quantitative 0.44(H) <=0.30 mmol/L 03/07/2024 8:09 PM CDT LABORATORY Blood STRUCTURE OF RIGHT UPPER LIMB / Unknown Venipuncture / Unknown 03/07/2024 7:02 PM CDT 03/07/2024 7:07 PM CDT Sandra Monroy MD LAB - BLOOD ORDERABLES Fin al Result [facility] Care Lab [address] Lab (1st floor, no room number) [place] [address], [facility] * (ABNORMAL) CBC with platelets and differential (12/28/2023 6:41 PM CDT) [facility] WBC Count 5.9 4.0 - 11.0 10e3/uL [...] - BLOOD ORDERABLES Final Result RH LABORATORY [facility] Acute Care Lab [address] Lab (1st floor, no room number) [place] [address] * Adult Type and Screen (12/28/2023 6:41 PM CDT) ABO/RH(D) A POS 12/28/2023 6:28 PM CDT RH BLOOD BANK Antibody Screen Negative Negative 12/28/2023 6:28 PM CDT RH BLOOD BANK SPECIMEN EXPIRATION DATE [id number] 12/28/2023 6:28 PM CDT RH BLOOD BANK Blood STRUCTURE OF RIGHT UPPER LIMB / Unknown Venipuncture / Unknown 12/28/2023 6:41 PM CDT 12/28/2023 6:46 PM CDT Agustin Cesar MD LAB - BLOOD BANK TEST O RDER Final Result RH BLOOD BANK [address] [place] [address] * INR (12/28/2023 6:41 PM CDT) INR 1.01 0.85 - 1.15 12/28/2023 7:00 PM CDT RH LABORATORY Blood STRUCTURE OF RIGHT UPPER LIMB / Unknown Venipuncture / Unknown 12/28/2023 6:41 PM CDT 12/28/2023 6:46 PM CDT Agustin Cesar MD LAB - BLOOD ORDERABLES Final Result LABORATORY [facility] Care Lab [address] Lab (1st floor, no room number) [place] [address] * Partial thromboplastin time (12/28/2023 6:41 PM CDT) aPTT 28 22 - 38 Seconds 12/28/2023 7:00 PM CDT LABORATORY Blood STRUCTURE OF RIGHT UPPER LIMB / Unknown Venipuncture / Unknown 12/28/2023 6:41 PM CDT 12/28/2023 6:46 PM CDT Agustin Cesar MD LAB - BLOOD ORDERABLES Final Result Performing Organization Address City/[facility]/ZIP Co de Phone Number LABORATORY [facility] Acute Care Lab [address] Lab (1st floor, no room number) [place] [address], [facility] * (ABNORMAL) Comprehensive metabolic panel (12/28/2023 [...] - BLOOD ORDERABLES Final Result RH LABORATORY [facility] Acute [facility] Lab [address] Lab (1st floor, no room number) [place] [address], [facility] * (ABNORMAL) Hemoglobin A1c [...] KIMBERLY LAB - BLOOD ORDERABLES Final Result [facility] Lab [address] Lab (1st floor, no room number) [place] [address], [facility] from Last 3 Months or Most Recently Relevant to Health Maintenance Insurance [place] Advance Directives For more information, please contact: [phone] Documents on File Type Date Recorded Patient Aoc Director Combat Operations Officer Expl anation Advance Directives and Living Will [...] nt/ legal decision maker Care Teams Corporate Tutor Relationship Specialty Start Date End Date Services, [facility] Physician [address] [place] [address] PCP - General 05/22/21 Prince Tobar MD [address] [place] [address] Cardiovascular Disease 03/26/22 Prince Tobar MD [address] [place], [place] [address] Assigned Heart and Vascular Provider 05/30/22 Matilde Pérez PA-C [address] [place] [id number] Physician Cork Insulator Helper Physician Cork Insulator Helper - Surgical 12/30/23
--- OUTSIDE RECORDS SUMMARY | 2024-03-13 23:12 | XMS_ITS | Encounter Summary ---
Author Organization [place] Address [address] [facility] [place] [address] Care Team Providers Care Tufting Creeler Name Role Phone Services, [facility] Physician Primary Care Provi sadia Prince Tobar MD Unavailable Prince Tobar MD Unavailable Matilde Pérez PA-C Unavailable [phone] Reason for Visit * Reason Comments Hyperglycemia Social Work Services Encounter Details Date Type Department Care Team (Late st Contact Info) Description 03/07/2024 5:35 PM CDT - 03/08/2024 8:21 PM CDT Emergency [facility] Emergency Dept [address] [place] [address] Sandra Monroy MD [facility] [address] [place], [place] [phone] Tex David MD [facility] [address] [place] [address] Vera Lopez DO [facility] [place] [address] [place] [address] Hyperglycemia (Primary Dx); Urinary tract infection [...] on file Legal 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 * UTI (Urinary Tract Infection): Male (Ukrainian) * Hyperglycemia: General Info (Ukrainian) documented in this encounter Medications at Time [...] mouth daily cholecalciferol (VITAMIN D3) 1250 mcg (62803 units) capsule Take 1,250 mcg by mouth [...] 200 mg by mouth daily nystatin (MYCOSTATIN) 291781 UNIT/GM external powder Apply topically 2 times [...] this encounter Consult Notes * Teresa Alexander, [facility] - 03/08/2024 5:47 PM CDTAssociated Order(s): CARE MANAGEMENT / SOCIAL WORK IP CONSULT; CARE MANAGEMENT / SOCIAL WORK IP CONSULT Summary: Discharge Planning Care Management Medical [facility] Outpatient Consult Care management consulted by provider for long term assessment. CM spoke with provider to discuss long term case. Provider has confirmed patient is medically stable for discharge. Background information: Patient was brought into the ED via EMS because of blood sugars and the halfway didn't have any insulin or pens for insulin to give them. Care team recommended discharge disposition: Return to his halfway Resources needed for discharge: needs medications, insulin and pens Discharge plan secured to meet patient's needs? Yes Estimated timeline for discharge: less than 24 hours Barriers to discharge: Getting patient insulin Discussed above with provider & insulation cupola charger. Next steps: Anticipate patient will discharge within the next 24 hours to halfway with medication support/resources for follow-up. Patient has an established discharge plan that can meet their needs as identified above. SW met with patient, all he wants to do is return to the halfway. AGATA spoke with patient guardian, Joycelyn reported that the halfway is having difficulty getting patient's insulin. She reports it is due to the halfway changing pharmacies. SW verified patient's [place] number which is active. Several calls placed to halfway's pharmacy, [facility]. They wee not able to verified medications. Spoke with the RN at the halfway,Fany [phone]. She reports that she has been calling pharmacy for the insulin but has not received it. [facility] is a mail in pharmacy so halfway isn't sure when they will get the insulin. AGATA discussed with MD and charge nurse, plan was to see if the medications can be filled here. Once patient's insulin and pen can be verified. Patient will return to halfway via wheelchair. ACE Palacio Marketing Technology Coordinator Inpatient Care Coordination Check Examiner Custom Seamstress [facility] [phone] ACE Haque documented in this encounter ED Notes * Chiki Rajan MD - 03/08/2024 8:21 PM CDT SW arranged home. Insulin per med rec filled here and Rx for home. Chiki Rajan MD 03/11/24 0023 * Lena Mathis RN - 03/08/2024 5:18 PM CDT Spoke with Fany, nurse patient accounts manager several times. She accepted report and [...] male with history of DM presenting from halfway. He reports facility ran out of insulin [...] - 03/07/2024 7:53 PM CDT Fany Nurse Tree Faller at the [facility] [place] phone: [phone]. Dianne Poultry Hatchery Laborer: [phone] Fany states pt receives Humulin 100u TID [...] hyperglycemia and social work issue. Patientreports his halfway staff checked his blood sugar to be high. He states he does not feel sick. No fever, headache, chest pain, or diarrhea. Per EMS, halfway facility informed them that insulin ran out [...] MG tablet cholecalciferol (VITAMIN D3) 1250 mcg (36564 units) capsule clotrimazole (LOTRIMIN) 1 % external [...] hr tablet nitroGLYcerin 0.2% ointment nystatin (MYCOSTATIN) 879913 UNIT/GM external powder pantoprazole (PROTONIX) 40 MG [...] TID and Basaglar 30 units BID. Sandra [phone] I spoke with Andressa, pharmacist, regarding the patient. Wed Mar 08, 2024 0116 Tried to talk to about dispo planning 0125 I reassessed the patient and discussed plan. He agrees. Additional Documentation None Medical Decision Making / Diagnosis [facility] Diagnoses: None MIPS None MDM [...] deemed safe to go back to his halfway. It is also quite difficult to get a hold of the halfway staff. Therefore we will watch the patient [...] 03/07/2024 5:01 PM CDT Patient THAD from halfway for concerns of hyperglycemia. Upon EMS arrival [...] Emergency Department Pharmacist Note: Prescriptions sent to [facility] pharmacy for Lantus and Humulin U-500 pens. [facility] pharmacy called and is unable to fill the Lantus as refill too soon. Attempted to call pt's [facility] but they are closed. So called Nurse Tree Faller, Fany, for the halfway #[phone]. She stated that [facility] was able to fill both the Basaglar and Humulin U-500 pens yesterday and today and both are being delivered tonight. She was told that the Humulin U-500 would be delivered between [id number] and the Basaglar would be delivered after [...] U-500 is being delivered tonight. Spoke with [facility]acy, they only have one U-500 pen in stock and so will dispense the one pen. This will be enough to get patient by until the [facility] delivery is delivered to his halfway this evening after 1999. No further action required. Andressa Buitrago, PharmD, [facility] Emergency Medicine Pharmacist [phone] or Deven March 08, 2024 Electronically signed by Andressa Buitrago [facility] at 03/08/2024 5:37 PM CDT documented in [...] Glucose by meter (03/08/2024 6:50 PM CDT) [facility] GLUCOSE BY METER POCT 131(H) 70 - 99 mg/dL 03/08/2024 6:57 PM CDT LABORATORY POC Blood, Capillary BLOOD SPECIMEN / Unknown 03/08/2024 6:50 PM CDT 03/08/2024 6:57 PM CDT us Vera Lopez DO LAB - BEAKER POCT Final Re sult LABORATORY [facility] Care Lab [address] Lab (1st floor, no room number) [place] [phone] [place] [address] * (ABNORMAL) Glucose by meter (03/08/2024 4:21 PM CDT) GLUCOSE BY METER POCT 192(H) 70 - 99 mg/dL 03/08/2024 4:34 PM CDT LABORATORY POC Blood, Capillary BLOOD SPECIMEN / Unknown 03/08/2024 4:21 PM CDT 03/08/2024 4:34 PM CDT Vera Lopez DO LAB - BEAKER POCT Final Re sult Performing Organization Address [facility]/ZIP Co de Phone Number LABORATORY [facility] Care Lab [address] Lab (1st floor, no room number) [place] [phone] [place] [address] * (ABNORMAL) Glucose by meter (03/08/2024 12:20 PM CDT) GLUCOSE BY METER POCT 202(H) 70 - 99 mg/dL 03/08/2024 12:26 PM CDT LABORATORY POC Blood, Capillary BLOOD SPECIMEN / Unknown 03/08/2024 12:20 PM CDT 03/08/2024 12:26 PM CDT Vera Lopez DO LAB - BEAKER POCT Final Re sult LABORATORY [facility] Care Lab [address] Lab (1st floor, no room number) [place] [phone] * (ABNORMAL) UA with Microscopic (03/08/2024 8:29 AM CDT) Color Urine Dark Brown(A) Colorless, Straw, Light Yellow, Yellow 03/08/2024 8:53 AM CDT LABORATORY Appearance Urine Cloudy(A) Clear 03/08/20 8:53 AM CDT LABORATORY Glucose Urine >=1000(A) Negative mg/dL 03/08/2024 8:53 AM CDT LABORATORY Bilirubin Urine Negative Negative 8:53 AM CDT LABORATORY Ketones Urine Negative Negative mg/dL 03/08/2024 8:53 AM CDT LABORATORY Specific [place] Urine 1.023 1.003 - 1.035 03/08/2024 8:53 [...] - URINE ORDERABLES Fin al Result LABORATORY [facility] Acute Care Lab [address] Lab (1st floor, no room number) [place] [address], [facility] * (ABNORMAL) Glucose by meter (03/08/2024 8:07 AM CDT) GLUCOSE BY METER POCT 294(H) 70 - 99 mg/dL 03/08/2024 8:20 AM CDT RH LABORATORY POC Blood, venous BLOOD SPECIMEN / Unknown 03/08/2024 8:07 AM CDT 03/08/2024 8:20 AM CDT us Tex David MD LAB - BEAKER POCT Final Resu lt LABORATORY [facility] Care Lab [address] Lab (1st floor, no room number) [place] [address] * (ABNORMAL) Glucose by meter (03/08/2024 5:58 AM CDT) GLUCOSE BY METER POCT 346(H) 70 - 99 mg/dL 03/08/2024 6:05 AM CDT LABORATORY POC Blood, Capillary BLOOD SPECIMEN / Unknown 03/08/2024 5:58 AM CDT 03/08/2024 6:05 AM CDT us Tex David MD LAB - BEAKER POCT Final Resu lt Performing Organization Address [facility]/ZIP Co de Phone Number LABORATORY [facility] Lab [address] Lab (1st floor, no room number) [place] [address] * (ABNORMAL) Glucose by meter (03/08/2024 4:10 AM CDT) GLUCOSE BY METER POCT 413(H) 70 - 99 mg/dL 03/08/2024 4:17 AM CDT LABORATORY POC Blood, Capillary BLOOD SPECIMEN / Unknown 03/08/2024 4:10 AM CDT 03/08/2024 4:17 AM CDT us Tex David MD LAB - BEAKER POCT Final Resu lt LABORATORY [facility] Care Lab [address] Lab (1st floor, no room number) [place] [address], [facility] * (ABNORMAL) Glucose by meter (03/08/2024 2:54 AM CDT) GLUCOSE BY METER POCT 347(H) 70 - 99 mg/dL 03/08/2024 3:01 AM CDT LABORATORY POC Blood, Capillary BLOOD SPECIMEN / Unknown 03/08/2024 2:54 AM CDT 03/08/2024 3:01 AM CDT Tex David MD LAB - BEAKER POCT Final Resu lt LABORATORY [facility] Acute Care Lab [address] Lab (1st floor, no room number) [place] [address] * (ABNORMAL) Glucose by meter (03/08/2024 1:48 AM CDT) GLUCOSE BY METER POCT 401(H) 70 - 99 mg/dL 03/08/2024 2:31 AM CDT LABORATORY POC Blood, Capillary BLOOD SPECIMEN / Unknown 03/08/2024 1:48 AM CDT 03/08/2024 2:31 AM CDT Sandra Monroy MD LAB - BEAKER POCT Final Re sult LABORATORY [facility] Care Lab [address] Lab (1st floor, no room number) [place] [address] * (ABNORMAL) Basic metabolic panel [...] BLOOD ORDERABLES Fin al Result RH LABORATORY [facility] Acute Care Lab [address] Lab (1st floor, no room number) [place] [address], [facility] * (ABNORMAL) Blood gas venous (03/07/2024 [...] LAB - BLOOD ORDERABLES Hemant franz Result [facility] Acute Care Lab [address] Lab (1st floor, no room number) [place] [address], [facility] * (ABNORMAL) Ketone Beta-Hydroxybutyrate Quantitative (03/07/2024 7:02 PM CDT) Ketone (Beta-Hydroxybuty rate) Quantitative 0.44(H) <=0.30 mmol/L 03/07/2024 8:09 PM CDT RH LABORATORY Blood STRUCTURE OF RIGHT UPPER LIMB / Unknown Venipuncture / Unknown 03/07/2024 7:02 PM CDT 03/07/2024 7:07 PM CDT us Sandra Monroy MD LAB - BLOOD ORDERABLES Hemant franz Result [facility] Acute Care Lab [address] Lab (1st floor, no room number) [place] [address], [facility] * (ABNORMAL) Glucose by meter (03/07/2024 7:02 PM CDT) GLUCOSE BY METER POCT 388(H) 70 - 99 mg/dL 03/07/2024 7:09 PM CDT LABORATORY POC Blood, venous BLOOD SPECIMEN / Unknown 03/07/2024 7:02 PM CDT 03/07/2024 7:09 PM CDT us Sandra Monroy MD LAB - BEAKER POCT Final Re sult Performing Organization Address City/[facility]/ZIP Co de Phone Number LABORATORY [facility] Lab [address] Lab (1st floor, no room number) [place] [address], [facility] * Extra Purple Top Tube (03/07/2024 7:02 PM CDT) Hold Specimen [facility] 03/07/2024 8:07 PM CDT LABORATORY Blood STRUCTURE OF RIGHT UPPER LIMB / Unknown Venipuncture / Unknown 03/07/2024 7:02 PM CDT 03/07/2024 7:07 PM CDT us Sandra Monroy MD LAB - BLOOD ORDERABLES Fin al Result [facility] Acute Care Lab [address] Lab (1st floor, no room number) [place] [address], [facility] * Extra Red Top Tube (03/07/2024 7:02 PM CDT) Hold Specimen [facility] 03/07/2024 8:07 PM CDT LABORATORY Blood STRUCTURE OF RIGHT UPPER LIMB / Unknown Venipuncture / Unknown 03/07/2024 7:02 PM CDT 03/07/2024 7:07 PM CDT us Sandra Monroy MD LAB - BLOOD ORDERABLES Fin al Result LABORATORY [facility] Acute Care Lab [address] Lab (1st floor, no room number) [place] [phone] [place] [address] * Extra Blue Top Tube (03/07/2024 7:02 PM CDT) Hold Specimen [facility] 03/07/2024 8:07 PM CDT LABORATORY Blood STRUCTURE OF RIGHT UPPER LIMB / Unknown Venipuncture / Unknown 03/07/2024 7:02 PM CDT 03/07/2024 7:07 PM CDT Sandra Monroy MD LAB - BLOOD ORDERABLES Fin al Result Performing Organization Address [facility]/ZIP Co de Phone Number LABORATORY [facility] Lab [address] [employer] Lab (1st floor, no room number) [address] * (ABNORMAL) Basic metabolic panel (03/07/2024 [...] - BLOOD ORDERABLES Fin al Result LABORATORY [facility] Acute Care Lab [address] Lab (1st floor, no room number) [place] [address] documented in this encounter Visit [...] RN) documented in this encounter Care Teams Tufting Creeler Relationship Specialty Start Date End Date Services, [facility] Physician [address] [place] [address] PCP - General 05/22/21 Prince Tobar MD [address] [place] [address] [id number] Cardiovascular Disease 03/26/22 Prince Tobar MD [address] [place] [address] [phone] Assigned Heart and Vascular Provider 05/30/22 Matilde Pérez PA-C [address] [place] [address] [phone] Physician Environmental Restoration Planner Physician Environmental Restoration Planner - Surgical 12/30/23 documented as of this encounter
--- OUTSIDE RECORDS SUMMARY | 2024-03-13 23:12 | XMS_ITS | Encounter Summary ---
Author Organization [place] Address [address] [facility] [place] [address] Care Team Providers Care Long Term Care Pharmacist Name Role Phone Services, [facility] Physician Primary Care Provi sadia Prince Tobar MD Unavailable [phone] Prince Tobar MD Unavailable [phone] Reason for Referral * Consultation (Priority: 1-2 Weeks) - Pending Review Specialty Diagnoses / Procedures Referred By Contjohnny t Referred To Contact Colon and Rectal Surgery Diagnoses Anal fissure External hemorrhoids Reinaldo Beltran PA-C [facility] [address]IMM [address] [place] [phone] Phone: tel: fax: Referral ID Status Reason Start Date Expiration Date V isits Requested Visits Authorized [id number] Pending Review 12/28/2023 12/27/2024 1 1 Question Answer Reason for Referral: Anal Fissure Special Concerns: Other My Clinical Question Is: Anal fissure, taking Apixaban Scheduling Instructions: [facility] [employer] [facility] will call you to coordinate care as prescribed your provider. If you don? t hear from a claim service representative within 2 business days, please call . Comments Please be aware that coverage of these services is subject to the terms and limitations of your health insurance plan. Call member services at your health plan with any benefit or coverage questions. [facility] [employer] [facility] will call you to coordinate care as prescribed your provider. If you don? t hear from a claim service representative within 2 business days, please call . 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 The bleeding you [...] mouth daily cholecalciferol (VITAMIN D3) 1250 mcg (49982 units) capsule Take 1,250 mcg by mouth [...] 7 days 4 g 12/28/2023 nystatin (MYCOSTATIN) 710871 UNIT/GM external powder Apply topically 2 times [...] MG tablet cholecalciferol (VITAMIN D3) 1250 mcg (66271 units) capsule clotrimazole (LOTRIMIN) 1 % external [...] 200 MG 24 hr tablet nystatin (MYCOSTATIN) 236803 UNIT/GM external powder pantoprazole (PROTONIX) 40 MG [...] POS Antibody Screen Negative SPECIMEN EXPIRATION DATE [id number] ABO/RH TYPE AND SCREEN Emergency Department Course [...] 1. Anal fissure K60.2 Adult Colorectal Surgery Shop Mechanic Helper Referral 2. External hemorrhoids K64.4 Adult Colorectal Surgery Shop Mechanic Helper Referral Discharge Medications: New Prescriptions HYDROCORTISONE, [...] yesterday, he went to a clinic in [place], he is unsure of what was done [...] MG tablet cholecalciferol (VITAMIN D3) 1250 mcg (26983 units) capsule clotrimazole (LOTRIMIN) 1 % external [...] 200 MG 24 hr tablet nystatin (MYCOSTATIN) 871552 UNIT/GM external powder pantoprazole (PROTONIX) 40 MG [...] POS Antibody Screen Negative SPECIMEN EXPIRATION DATE [id number] ABO/RH TYPE AND SCREEN Imaging No orders to display Independent Interpretation None ED Course Medications Administered Medications - No data to display Procedures Procedures Discussion of Management Staffed with Dr. Cesar ED Course ED Course as of 12/28/231936Dec 28, [id number] I evaluated and examined the patient 1902 Rectal exam with RN at bedside Additional Documentation None Medical Decision Making / Diagnosis [facility] Diagnoses: None MIPS None [facility] Leonid Leahy is a 63 [...] 1. Anal fissure K60.2 Adult Colorectal Surgery Shop Mechanic Helper Referral 2. External hemorrhoids K64.4 Adult Colorectal Surgery Shop Mechanic Helper Referral Discharge Medications New Prescriptions HYDROCORTISONE, [...] Pt comes from assisted living facility in [place]. * Tamiko Monzon RN - 12/28/2023 6:08 PM CDT Bed: ED01 Expected date: Expected time: Means of arrival: Comments: [id number] 63Ym documented in this encounter Plan of Treatment Scheduled Referrals Name Type Priority Associated Diagnoses Orde r Schedule Adult Colorectal Surgery Shop Mechanic Helper Referral Referral Priority: 1-2 Weeks Anal [...] CDT RH BLOOD BANK SPECIMEN EXPIRATION DATE [id number] 12/28/2023 6:28 PM CDT RH BLOOD BANK Blood STRUCTURE OF RIGHT UPPER LIMB / Unknown Venipuncture / Unknown 12/28/2023 6:41 PM CDT 12/28/2023 6:46 PM CDT Agustin Cesar MD LAB - BLOOD BANK TEST O RDER Final Result BLOOD BANK [facility] [place] [address], [facility] * (ABNORMAL) CBC with platelets and [...] LAB - BLOOD ORDERABLES Final Result LABORATORY [facility] Acute Care Lab [address] Lab (1st floor, no room number) [place] [address], [facility] * (ABNORMAL) Comprehensive metabolic panel (12/28/2023 [...] MD LAB - BLOOD ORDERABLES Final Result [facility] [address] Lab (1st floor, no room number) [place] [address] * Partial thromboplastin time (12/28/2023 6:41 PM CDT) aPTT 28 22 - 38 Seconds 12/28/2023 7:00 PM CDT RH LABORATORY Blood STRUCTURE OF RIGHT UPPER LIMB / Unknown Venipuncture / Unknown 12/28/2023 6:41 PM CDT 12/28/2023 6:46 PM CDT Agustin Cesar MD LAB - BLOOD ORDERABLES Final Result [facility] Acute Care Lab [address] Lab (1st floor, no room number) [place] [address] * INR (12/28/2023 6:41 PM CDT) INR 1.01 0.85 - 1.15 12/28/2023 7:00 PM CDT RH LABORATORY Blood STRUCTURE OF RIGHT UPPER LIMB / Unknown Venipuncture / Unknown 12/28/2023 6:41 PM CDT 12/28/2023 6:46 PM CDT us Agustin Cesar MD LAB - BLOOD ORDERABLES Final Result [facility] Acute Care Lab [address] Lab (1st floor, no room number) [place] [address], [facility] documented in this encounter Visit Diagnoses Diagnosis Anal fissure External hemorrhoids External hemorrhoids without mention of complication documented in this encounter Care Teams Long Term Care Pharmacist Relationship Specialty Start Date End Date Services, [facility] Physician [address] [place] [address] PCP - General 05/22/21 Prince Tobar MD [address] [place] [address] Cardiovascular Disease 03/26/22 Prince Tobar MD [address] [place] [address] Assigned Heart and Vascular Provider 05/30/22 documented as of this encounter
--- OUTSIDE RECORDS SUMMARY | 2024-03-13 23:12 | XMS_ITS | Clinical Summary ---
Author Organization [facility] Address [place], [place] [address] Care Team Providers Care Frozen Meat Cutter Name Role Phone Alan Lopez MD Unavailable [phone] Nishant Watson MD Unavailable Pcp, No Primary [...] type 2 diabetes mellitus (HC),Chronic edema JOBST #[id number] LRG FULL CALF KNEE BLACK 20-30 COMPRESSION [...] mg extended release tablet 24 HourIndications:CAD in [place] artery Take 1 tablet by mouth once [...] call MD 0 04/01/2020 Active Insulin Safety [place], Disp, (NOVOFINE AUTOCOVER) 30 gauge x /3Indications:Cecelia [...] at 10 am and no showed. RN Company Doctor, Juanita Yoo, notified and she will attempt [...] No, referral made to Advance Care Plan Switch Repairer. Patient has identified Specific Treatment Preferences: No Sophia Méndez RN .................... 07/06/2011 2:30 PM] Specific limits to treatment preferences NOT identified: ASSUME FULL TREATMENT. Assessment & Plan (05/25/2012 12:51 PM YARN WASHER): Advance Care Planning: Disease-specific Session Leonid Leahy is a [facility] patient. His PCP is Leandra Limon at [facility]. Advance care planning discussions were completed with Leonid. He identified his sister, Brittany Suggs, as his healthcare agent. Brittany was not present for ACP session. Understanding of Illness and Disease Ninole: Leonid identifies his medical condition as what [...] to live well: Daily visit to local [facility] for a pop and to visit and catch up in the news with locals. Leonid obed with serious challenges in his life: Support of his sister, only a phone call away. Helps manage [facility]. Leonid identifies the following fears and [...] and primary care provider. Hard Choices for [place] [employer] booklet was sent to Leonid and his health care agent for review. Leonid requested all information be mailed to his sister and video games storywriter to place call to sister to explain process. Leonid identified the following concerns during his advance care planning session: needing assistance at home to ensure he is managing his medications and treatments to keep going as is and stabilizing. Is followed by Clinic Continuous Drier Helper for needed services. Questions identified for his primary care provider: none Documents addressed during this advance care planning session: Health Care Directive completed and scanned into medical record. Statement of Treatment Preferences for advanced illness completed and scanned into the medical record. Recommendations/Plan: Leonid to review Advance Care Plan with Leonid's healthcare agent. Stretcher Helper will be contacting Leonid's [facility] to explain services rendered, Leonid would benefit from: Home Care and/or Hospice when / if appropriate. [facility] services involved, [facility] supports coordination of medical asistance. Care [...] 2:27 PM Sophia Méndez RN RN Clinic Continuous Drier Helper - [facility] [phone] Vitamin D deficiency 01/06/2011 011 Neuropathy 09/25/2010 [...] 176.9 kg (390 lb) 07/14/2022 6:10 PM YARN WASHER Height 167.6 cm (5' 6) 07/14/2022 6:10 PM YARN WASHER Body Mass Index 62.95 07/14/2022 6:10 PM YARN WASHER Plan of Treatment Health Maintenance Due Date [...] Kay García Medical Devices Implanted Type Area Corporate Travel Agent Device Identifier Shelf Expiration Date Model / Serial / Lot Iol Dickson +20 Tecnis Zcb00 - [id number] Implanted:Qty: 1 on 07/15/2022 by Tanner Fuentes MD at [facility] Left: Eye [employer] 06/24/2025 ZCB00 20.0 / [id number] / Iol Dickson +20 Tecnis Zcb00 - [id number] Implanted:Qty: 1 on 08/19/2022 by Tanner Fuentes MD at [facility] Right: Eye [employer] 06/24/2025 ZCB00 20.0 / [id number] / Procedures Procedure Name Priority Date/Time Associated Diagnosis Comments LIPID PANEL Routine 03/13/2019 2:31 PM CDT Essential hypertriglyceridemia from Last 3 Months or Most Recently Relevant to Health Maintenance Results * (ABNORMAL) LIPID PANEL (03/13/2019 2:31 PM CDT) [facility] CHOLESTEROL,TOTAL 193 100 - 199 mg/dL 03/13/2019 9:25 PM CDT [facility] TRIGLYCERIDES 715(H) <150 mg/dL 03/13/2019 9:25 PM CDT [facility] HDL CHOLESTEROL 29(L) >40 mg/dL 9 9:25 PM CDT [facility] NON-HDL CHOLESTEROL 164(H) <145 mg/dl 03/13/2019 9:25 PM CDT [facility] CHOL/HDL RATIO 6.66(H) <4.50 03/13/2019 9:25 PM CDT [facility] LDL CHOLESTEROL 9 9:25 PM CDT [facility] Comment:Invalid LDL when Tri g >400. PROVIDER ORDERED STATUS RANDOM 03/13/2019 9:25 PM CDT [facility] Blood BLOOD SPECIMEN / Unknown Venipuncture / Unknown 03/13/2019 2:31 PM CDT 03/13/2019 2:31 PM CDT Suellen Sosa MD CHEMISTRY [facility] [address] [place] [address], from Last 3 Months or Most Recently Relevant to Health Maintenance Advance Directives Documents on File Type Date Recorded Patient Animal Nutrition Consultant Eduardo smiley POL 09/26/2014 3:45 PM AH [...] 9:30 PM 03/19/2009 6:17 PM Care Teams Frozen Meat Cutter Relationship Specialty Start Date End Date Pcp, No . PCP - General 07/15/22 Alan Lopez MD Internal Medicine Internal Medicine 11/20/10 Nishant Watson MD [address] [place] [address] Endocrinology 08/15/13
--- OUTSIDE RECORDS SUMMARY | 2024-03-13 23:12 | XMS_ITS | Encounter Summary ---
Author Organization [place] Address [address] [facility] 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 Gender Identity Not on file Sexual Orientation Choose not to disclose 2021 8:14 AM TRANSPORTER DRIVER documented as of this encounter Plan of Treatment Not on file documented as of this encounter Visit Diagnoses Not on filedocumented in this encounter Care Teams Product Marketing Intern Relationship Specialty Start Date End Date Services, [place] Physician [address] [place] [address], [facility] [address] [place] [address] PCP - General 05/22/21 Prince Tobar MD [address] [place] [address] Cardiovascular Disease 03/26/22 Prince Tobar MD [address] [place] [address] Assigned Heart and Vascular Provider 05/30/22 Matilde Pérez PA-C [address] [place] [phone] Physician Residential Treatment Counselor Physician Residential Treatment Counselor - Surgical 12/30/23 documented as of this encounter
--- OUTSIDE RECORDS SUMMARY | 2024-03-13 23:12 | XMS_ITS | Encounter Summary ---
Author Organization [place] Address [address] [facility] [place] [address] Care Team Providers Care Stump Blower Name Role Phone Services, [facility] Physician Primary Care Provi sadia Prince Tobar MD Unavailable Prince Tobar MD Unavailable Matilde Pérez PA-C Unavailable [phone] Reason for Visit * Reason Onset Date Comments Previsit 03/08/2024 Encounter Details Date Type Department Care Team (Late st Contact Info) Description 03/08/2024 PRE VISIT [facility]al [facility] [address] [place] [address] Matilde Pérez PA-C [address] [place] [address] Previsit Social History Tobacco Use Types [...] on file Legal Sex Male 3:35 AM SUPPLY AND DISTRIBUTION MANAGER Gender Identity Not on file Sexual Orientation Choose not to disclose 2021 8:14 AM SUPPLY AND DISTRIBUTION MANAGER documented as of this encounter Miscellaneous Notes * Telephone Encounter - Duyen Mahmood - 12/31/2023 7:45 AM CDT Diagnosis, Referred by & from: Anal Fissure, External Hemorrhoids Appt date: 03/08/2024 NOTES STATUS DETAILS OFFICE NOTE from referring provider N/A OFFICE NOTE from other specialist N/A DISCHARGE SUMMARY from hospital N/A DISCHARGE REPORT from the ER Internal [facility]: 12/28/23 - ED OV with Dr. Cesar [...] on filedocumented in this encounter Care Teams Stump Blower Relationship Specialty Start Date End Date Services, [facility] Physician [address] [place] [address] PCP - General 05/22/21 Prince Tobar MD [address] [place] [address] Cardiovascular Disease 03/26/22 Prince Tobar MD [address] [place] [address] Assigned Heart and Vascular Provider 05/30/22 Matilde Pérez PA-C [address] [place] [address] [phone] Physician Visually Impaired Teacher Physician Visually Impaired Teacher - Surgical 12/30/23 documented as of this encounter
== END 2024-03-07 16:15 | disposition home or self-care (01) ==
LOC: AMB 03-13 22:53
PROVIDERS: Visit Provider Emergency Medicine
DX: E11.65 Type 2 diabetes mellitus with hyperglycemia (principal)
CPT/HCPCS: A0425; A0427

== ENCOUNTER 2024-04-27 01:06 | Outpatient (CLI) | payer MEDICARE, MEDICAID, SELFPAY | END 2024-04-27 01:07 | disposition home or self-care (01) | LOC: AMB 04-28 03:42 | PROVIDERS: Visit Provider Family Medicine | DX: M54.50 Low back pain, unspecified (principal); R11.10 Vomiting, unspecified | CPT/HCPCS: A0425; A0427 ==

== ENCOUNTER 2024-04-27 01:49 | Emergency (ER) | payer MEDICARE, MEDICAID, SELFPAY ==
[2024-04-27 01:57] VITALS: BP 158/124; PULSE 108; RESP 20; TEMP 36.4; O2SAT 95; BMI 64.6
[2024-04-27 02:13] LABS: HCO3 VBG 31 mmol/L (21-28); Lactate* 2.9 mmol/L (0.5-1.9); PCO2 VBG 48 mmHG (40-50); PO2 VBG < 30.1 mmHG (25-47); pH VBG 7.419 (7.32-7.43)
[2024-04-27] MEDS: 0.9 % SODIUM CHLORIDE 500 ML 500 ML 1000 ML IV ×2 (02:15→04:58)
[2024-04-27] MEDS: ONDANSETRON 2 MG/ML inj 4 MG IVP ×2 (02:15→05:00)
[2024-04-27 02:18] LABS: Basophils Percent Auto 0.3 % (0.0-3.0); Eosinophils Percent Auto 3.6 % (0.0-7.0); Hematocrit 41.9 % (37.0-53.0); Hemoglobin* 14.2 gm/dL (13.5-17.5); Immature Granulocytes Pct Auto 0.3 %; Lymphocytes Percent Auto 11.6 % (20-44); Mean Corpuscular HGB Conc 34 gm/dL (32-36); Mean Corpuscular Hemoglobin 29 pg (26-34); Mean Corpuscular Volume 85 fL (80-100); Monocytes Percent Auto 4.7 % (0.0-11.0); Neutrophils Percent Auto 79.5 % (42.0-72.0); Platelet Count* 155 K/uL (140-440); RDW Coefficient of Variation % 14.2 % (11.5-15.5); Red Blood Count 4.91 m/uL (4.30-5.90); White Blood Count* 3.62 K/uL (4.50-11.00)
[2024-04-27 02:22] LABS: Slide Review Reflex No
[2024-04-27 02:30] LABS: Chloride* 99 mmol/L (96-114)
[2024-04-27 02:31] LABS: Albumin* 4.3 g/dL (3.3-5.0); Sodium* 136 mmol/L (135-149)
[2024-04-27 02:34] LABS: Alanine Aminotransferase* 33 U/L (4-50); Alkaline Phosphatase* 96 U/L (40-150); Anion Gap 8 mEq/L (7-15); Aspartate Amino Transferase* 72 U/L (12-35); Bilirubin Total* 1.6 mg/dL (0.1-1.5); Blood Urea Nitrogen* 26 mg/dL (7-30); Carbon Dioxide* 29 mmol/L (20-32); Creatinine* 0.9 mg/dL (0.5-1.5); Est. Creatinine Clearance* 67.34; Estimated Glomerular Filt Rate 95 ml/min; Lipase* 78 U/L (23-300); Total Protein* 7.8 g/dL (6.0-8.3)
[2024-04-27 02:35] LABS: Calcium* 8.6 mg/dL (8.4-10.6)
--- NOTE | 2024-04-27 02:39 | PC.NURSE ---
nursing=pt requesting to urinate. Pt stated at home he walks but not able to gwet up and walk now. Pt held urinal but still unable to void.
--- NOTE | 2024-04-27 02:44 | ED_ITS ---
HPI - General Adult General Chief complaint: Back Injury/Pain Stated complaint: Chest and Back Pain Time Seen by Provider: 04/27/24 02:00 Source: patient and EMS Mode of arrival: EMS History of Present Illness HPI narrative: Morbidly obese man who I have cared for multiple times the past presents to the emergency department by EMS. He reports left-sided lower back pain but is very vague about it. Cannot tell me that radiates. Initially denies abdominal pain but then states that he had some yesterday. Last bowel movement was a couple days ago per him, does not recall that he has stool currently on his backside. He vomited upon arrival and did have a possibly fecal smell to it. When I ask if he has been vomiting at home, he says once but cannot elaborate on what time. He has no fever per his report. Limited additional history from EMS as well. He says he is currently living in assisted living in [place]. He has an extensive prior mental health and metabolic history. He denies recent trauma or injury. It does not seem as though he has been able to get up for quite some time. He says that he has had no difficulty eating. He is very hesitant answer my questions keeps making demands about wanting to be repositioned and other comfort measures. This is similar to previous encounters. Past medical history is really extensive. Severe mental health issues, super morbid obesity, depression, insulin-dependent diabetes, coronary artery disease, multiple prior blood clots. He does look like he has gained weight since our last encounter. He denies ROS times 12 systems, I believe none of that. Triage reviewed. Related Data Home Medications ?Medication ?Instructions ?Recorded ?Confirmed amlodipine 10 mg tablet 10 mg PO DAILY 03/07/22 02/20/24 apixaban 5 mg tablet (Eliquis) 5 mg PO BID 03/07/22 02/20/24 aripiprazole 15 mg tablet 7.5 mg PO DAILY 03/07/22 02/20/24 aspirin 81 mg tablet,delayed 81 mg PO DAILY 03/07/22 02/21/24 release carbamazepine 200 mg tablet 200 mg PO BID 03/07/22 02/20/24 chlorthalidone 25 mg tablet 25 mg PO DAILY 03/07/22 02/20/24 ezetimibe 10 mg tablet 10 mg PO DAILY 03/07/22 02/20/24 hydralazine 50 mg tablet 50 mg PO QID 03/07/22 02/20/24 pantoprazole 40 mg tablet,delayed 40 mg PO DAILY 03/07/22 02/20/24 release polyethylene glycol 3350 17 17 g PO DAILY 03/07/22 02/21/24 gram/dose oral powder pregabalin 100 mg capsule 100 mg PO QAM 03/07/22 02/20/24 pregabalin 150 mg capsule 150 mg PO HS 03/07/22 02/20/24 torsemide 20 mg tablet 20 mg PO DAILY 03/07/22 02/20/24 venlafaxine 75 mg capsule,extended 225 mg PO DAILY 03/07/22 02/20/24 release 24 hr acetaminophen 500 mg tablet 500 mg PO Q6H 06/13/22 02/21/24 albuterol sulfate 90 mcg/actuation 1 inh inhalation Q4H PRN 06/13/22 02/21/24 aerosol inhaler bronchospasm diphenhydramine HCl 50 mg capsule 50 mg PO Q6H PRN itching 06/13/22 02/21/24 (Banophen) icosapent ethyl 1 gram capsule 2 g PO BID 06/13/22 02/21/24 (Vascepa) insulin regular hum U-500 conc 500 100 unit subcut TID 06/13/22 02/20/24 unit/mL(3 mL) subcut pen (Humulin R U-500 (Conc) Insulin Kwikpen) ketoconazole 2 % shampoo 1 applic topical Q3D 06/13/22 02/21/24 loperamide 2 mg capsule 2 mg PO Q6H PRN loose stool 06/13/22 02/21/24 nystatin 100,000 unit/gram topical 1 applic topical BID PRN 06/13/22 02/20/24 powder sennosides 8.6 mg tablet (senna) 8.6 mg PO DAILY 06/13/22 02/21/24 clotrimazole 1 % topical cream 1 applic topical BID 07/25/22 02/21/24 ergocalciferol (vitamin D2) 1,250 50,000 unit PO WE@09 07/25/22 02/21/24 mcg (50,000 unit) capsule insulin glargine 100 unit/mL (3 30 unit subcut BID 12/27/23 02/20/24 mL) subcutaneous pen (Basaglar KwikPen U-100 Insulin) isosorbide mononitrate 60 mg 60 mg PO DAILY 12/27/23 02/20/24 tablet,extended release 24 hr metoprolol succinate 200 mg 200 mg PO DAILY 12/27/23 02/20/24 tablet,extended release 24 hr semaglutide 1 mg/dose (4 mg/3 mL) 1 mg subcut .weekly 12/27/23 02/21/24 subcutaneous pen injector (Ozempic) carvedilol 25 mg tablet 25 mg PO DAILY 02/20/24 02/20/24 potassium chloride 20 mEq 40 meq PO BID 02/20/24 02/21/24 tablet,extended release(part/cryst) rosuvastatin 40 mg tablet 40 mg PO HS 02/20/24 02/20/24 Previous Rx's ?Medication ?Instructions ?Recorded hydrocortisone 2.5 % topical cream 1 applic topical BID PRN #30 grams 09/14/22 ammonium lactate 12 % lotion 1 applic topical BID #225 grams 04/01/23 cyclobenzaprine 10 mg tablet 10 mg PO HS PRN muscle spasm #20 12/27/23 tabs doxycycline hyclate 100 mg capsule 100 mg PO BID #10 caps 02/21/24 ondansetron 4 mg disintegrating 4 mg PO Q6H PRN nausea and 04/27/24 tablet vomiting #10 tabs Allergies Allergy/AdvReac Type Severity Reaction Status Date / Time lisinopril Allergy Mild Cough Verified 03/05/24 12:34 metformin AdvReac Verified 03/05/24 12:34 PFSH PFSH Medical History Anemia in chronic kidney disease (CKD) ?N18.9 - Chronic kidney disease, unspecified (ICD-10) ?D63.1 - Anemia in chronic kidney disease (ICD-10) Chronic kidney disease (CKD), stage IV (severe) ?N18.4 - Chronic kidney disease, stage 4 (severe) (ICD-10) DISH (diffuse idiopathic skeletal hyperostosis) ?M48.10 - Ankylosing hyperostosis [[place]], site unspecified (ICD-10) Edema ?R60.9 - Edema, unspecified (ICD-10) Neuropathy ?G62.9 - Polyneuropathy, unspecified (ICD-10) Learning disability ?F81.9 - Developmental disorder of scholastic skills, unspecified (ICD-10) Insomnia ?G47.00 - Insomnia, unspecified (ICD-10) Metabolic syndrome ?E88.810 - Metabolic syndrome (ICD-10) Sensorineural hearing loss (SNHL) of both ears ?H90.3 - Sensorineural hearing loss, bilateral (ICD-10) Tinnitus ?H93.19 - Tinnitus, unspecified ear (ICD-10) Hypercholesterolemia ?E78.00 - Pure hypercholesterolemia, unspecified (ICD-10) Insulin dependent diabetes mellitus Recurrent deep vein thrombosis (DVT) ?I82.409 - Acute embolism and thrombosis of unspecified deep veins of unspecified lower extremity (ICD-10) Hypertension ?I10 - Essential (primary) hypertension (ICD-10) Coronary artery disease ?I25.10 - Atherosclerotic heart disease of [place] coronary artery without angina pectoris (ICD-10) Hypertriglyceridemia ?E78.1 - Pure hyperglyceridemia (ICD-10) Epilepsy ?G40.909 - Epilepsy, unspecified, not intractable, without status epilepticus (ICD-10) TASHI on CPAP ?G47.33 - Obstructive sleep apnea (adult) (pediatric) (ICD-10) ?Z99.89 - Dependence on other enabling machines and devices (ICD-10) Tachypnea ?R06.82 - Tachypnea, not elsewhere classified (ICD-10) Fever ?R50.9 - Fever, unspecified (ICD-10) CKD (chronic kidney disease) ?N18.9 - Chronic kidney disease, unspecified (ICD-10) Gout ?M10.9 - Gout, unspecified (ICD-10) Major depressive disorder ?F32.9 - Major depressive disorder, single episode, unspecified (ICD-10) Type 2 diabetes mellitus ?E11.9 - Type 2 diabetes mellitus without complications (ICD-10) Obesity ?E66.9 - Obesity, unspecified (ICD-10) Surgical History History of cholecystectomy ?Z90.49 - Acquired absence of other specified parts of digestive tract (ICD- 10) Social History Narrative: Lives in a nursing home in [place], [place]. Sisters Brittany Suggs ([phone]) and Blanka Mcduffie ([phone]) listed as contacts and medical decision makers. Paperwork from nursing home indicates Full Code status. What is your current living situation?: I presently have a place to live Problems where you live: no known problems Problems where you live details: none In the past 12 months, utilities in danger of being shut off: no In the past 12 mos, have been you worried that your food would run out before you had money to buy more?: never true In the past 12 mos, the food you bought just didn't last and you didn't have money to buy more?: never true Highest level of school completed/degree received: 12th grade, no diploma Smoking Status: Never smoker Do you use any of these nicotine containing products: None Second hand tobacco smoke exposure: No How often do you have a drink containing alcohol: never How often do you have six or more drinks on one occasion: Never AUDIT-C Alcohol total score: 0 Non-prescribed substance use: denies use Caffeine: No How often does anyone, including family, friends and others, physically hurt you : never How often does anyone, including family, friends and others, insult or talk down to you: never How often does anyone, including family, friends and others, threaten you with harm: never How often does anyone, including family, friends and others, scream or curse at you: never service: No Exam Const: Vital Signs, click to edit/add: Vital Signs - 24 hr 04/27/24 01:57 Temperature 97.6 F Pulse Rate [Left P ulse Oximeter] 108 H Respiratory Rate 20 Blood Pressure [Le ft Forearm] 158/124 H Pulse Oximetry 95 Oxygen Delivery Me thod Room Air Documenting provider has reviewed patient's vital signs: yes Other: Patient has stool adhered to his backside, generally unkempt. Grumpy, typical for patient. Poor historian, also typical for patient. HENMT: Common normals: normocephalic Head and scalp: normocephalic Face and sinus: normal facial exam Mouth: oral and palatal mucosa normal Eye: Common normals: EOMs intact bilaterally, conjunctivae normal and no scleral icterus Conjunctiva: conjunctiva(e) normal Neck & C-Spine: Common normals: no lymphadenopathy Chest: Common normals: inspection of chest normal Resp: Other: Very decreased breath sounds, difficult to auscultate due to body habitus. He declines rolling or sitting up for me. Cardio: Other: Heart sounds very distant but they do sound regular. I cannot even hope to auscultate murmurs. GI: Other: Morbidly obese with dependent edema and stasis changes in the pannus. No obvious open sores or cellulitis today. Reducible umbilical hernia. Bowel sounds are distant, very difficult to hear. He initially responded to tenderness in the left lower quadrant area but repeat exam was not reproducible. Very difficult exam. No obvious guarding. Extremity: Other: 3+ chronic edema with stasis. No obviou s new lacerations, areas of bleeding or weeping. Neuro: Other: Can move extremities slightly on exam and is symmetric. Does not attempt to adjust himself in bed or move himself up with his arms. Psych: Appearance: disheveled Insight: limited Judgement: limited Skin: Narrative: Adherent stool, stasis changes of lower extremities and abdominal pannus. Stasis changes on backside, have not been able to do a thorough gluteal exam. Course Course ED Course: 63-year-old male presenting with left back pain apparently vomits upon arrival with possible fecal odor. Differential diagnosis including gastroenteritis, intra-abdominal infection, bowel obstruction, dehydration, metabolic derangement, possible kidney stone, sepsis, cardiac process, multiple others. Unfortunately his history is not very guiding. Will place IV, give 1 L of normal saline, intra-abdominal and sepsis labs. Venous blood gas. Will give Zo joshua. If his kidney function allows, anticipate CT of chest abdomen and pelvis. Reevaluation(s) Time of Reevaluation #1: 04:32 Reevaluation #1: Labs and CT reviewed. Lactate was mildly elevated but no other signs of elevated BUN. No significant leukocytosis, elevation of CRP, other electrolyte abnormalities. No acidosis. CT is actually reassuring. I suspect this is a gastroenteritis. He can have significant difficulty managing but I really do not have any indications to keep him here in the hospital. I minute bolus another 500 mL of IV fluid. We will plan to send him home on some Zofran. There are no bloody stools, signs of severe infection. He is mentating at baseline. The nurses have let me know that he just had a very loose stool, nonbloody. I do suspect that this will probably worsen. Will give 4 mg of loperamide and another 4 mg of Zofran. Instructions on returning to the ED if he is not able to hold down fluids. Watch closely for low blood sugars. Advanced diet as tolerated. He will be very difficult to care for in his assisted living but does not meet any criteria for hospitalization at this time. Vital Signs Vital signs: Initial Vital Signs Temperature 97.6 F 04/27/24 01:57 Temperature Source Temporal Artery Scan 04/27/24 01:57 Pulse Rate 108 H 04/27/24 01:57 Pulse Rhythm Regular 04/27/24 01:57 Respiratory Rate 20 04/27/24 01:57 Blood Pressure 158/124 H 04/27/24 01:57 Blood Pressure Mean 135 H 04/27/24 01:57 Blood Pressure Position Supine 04/27/24 01:57 Pulse Oximetry 95 04/27/24 01:57 Oxygen Delivery Method Room Air 04/27/24 01:57 Vital Signs Temperature 97.6 F 04/27/24 01:57 Pulse Rate 108 H 04/27/24 01:57 Respiratory Rate 20 04/27/24 01:57 Blood Pressure 158/124 H 04/27/24 01:57 Pulse Oximetry 95 04/27/24 01:57 Oxygen Delivery Method Room Air 04/27/24 01:57 Temperature 97.6 F 04/27/24 01:57 Pulse Rate 108 H 04/27/24 01:57 Respiratory Rate 20 04/27/24 01:57 Blood Pressure 158/124 H 04/27/24 01:57 Pulse Oximetry 95 04/27/24 01:57 Oxygen Delivery Method Room Air 04/27/24 01:57 Medications Administered Medications: Generic Name Dose Route Start Last Admin Trade Name Freq PRN Reason Stop Dose Admin Sodium Chloride 500 mls @ 1,000 mls/hr 04/27/24 02:02 04/27/24 02:56 0.9 % Sodium Chloride 500 Ml IV 04/27/24 02:31 Infused .Q30M ONE Infusion Ondansetron HCl 4 mg 04/27/24 02:02 04/27/24 02:15 Ondansetron 2 Mg/Ml Inj IVP 04/27/24 02:03 4 mg ONCE ONE Administration Medical Decision Making Lab Data Lab results reviewed: Yes I reviewed the patient's lab results Lab results narrative: No significant leukocytosis, electrolyte abnormality, dehydration, acidosis or elevated lipase. His lactate is mildly elevated, IV fluids given. Blood sugar elevated, not atypical for patient but no signs of acidosis. We elect not to treat this because his gastroenteritis symptoms could potentially lead to low blood sugar if over treated. Labs: Lab Results 04/27/24 Range/Units 02:10 WBC 3.62 L (4.50-11.00) K/uL RBC 4.91 (4.30-5.90) m/uL Hgb 14.2 (13.5-17.5) gm/dL Hct 41.9 (37.0-53.0) % MCV 85 (80-100) fL MCH 29 (26-34) pg MCHC 34 (32-36) gm/dL RDW Coeff of [place] 14.2 (11.5-15.5) % Plt Count 155 (140-440) K/uL Neut % (Auto) 79.5 H (42.0-72.0) % Lymph % (Auto) 11.6 L (20-44) % [place] % (Auto) 4.7 (0.0-11.0) % Eos % (Auto) 3.6 (0.0-7.0) % Baso % (Auto) 0.3 (0.0-3.0) % Neut # (Auto) 2.90 (1.7-7.0) K/uL Lymph # (Auto) 0.40 L (0.90-2.90) K/uL [place] # (Auto) 0.20 (0.00-0.90) K/UL Eos # (Auto) 0.10 (0.00-0.50) K/uL Baso # (Auto) 0.00 (0.00-0.30) K/uL Abs Immat Gran (auto) 0.00 (0.00-0.30) K/uL Imm/Tot Granulo (auto) 0.3 % VBG pH 7.419 (7.32-7.43) VBG pCO2 48 (40-50) mmHG VBG pO2 < 30.1 (25-47) mmHG VBG HCO3 31 H (21-28) mmol/L Sodium 136 (135-149) mmol/L Potassium (3.6-5.1) mmol/L Chloride 99 (96-114) mmol/L Carbon Dioxide 29 (20-32) mmol/L Anion Gap 8 (7-15) mEq/L BUN 26 (7-30) mg/dL Creatinine 0.9 (0.5-1.5) mg/dL Estimated Creat Clear 67.34 Estimated GFR 95 ml/min Glucose 405 H* (60-115) mg/dL Lactate 2.9 H (0.5-1.9) mmol/L Calcium 8.6 (8.4-10.6) mg/dL Total Bilirubin 1.6 H (0.1-1.5) mg/dL AST 72 H (12-35) U/L ALT 33 (4-50) U/L Alkaline Phosphatase 96 (40-150) U/L Total Protein 7.8 (6.0-8.3) g/dL Albumin 4.3 (3.3-5.0) g/dL Lipase 78 (23-300) U/L Imaging Data CT Chest/Ab/Pelvis: Attestation: I have reviewed the pertinent imaging results. My impression: No bowel obstruction, no pleural effusion, gallbladder is already absent. Fluid in the stomach suspicious for gastroenteritis. No signs of abscesses, bladder wall thickening, kidney stones, obstruction or other abnormality. Radiologist's impression: IMPRESSION: 1. CHEST: Mildly enlarged heart. Low lung volumes. Minimal basilar atelectasis. Patchy multifocal ground-glass which could be congestive or inflammatory. No focal consolidation, infiltrate, mass, pleural effusion or pneumothorax. Not timed for pulmonary artery distribution but no large central pulmonary emboli 2. ABDOMEN AND PELVIS: Enlarged fatty infiltrated liver. Surgically absent gallbladder. Right renal cyst. Fat containing ventral hernia. No specific visible cause for vomiting. 3. OSSEOUS STRUCTURES AND BODY WALL: Degenerative changes. Redemonstration of a fat containing ventral hernia. Please note that all CT scans at this facility use dose modulation, iterative reconstruction, and/or weight-based dosing when appropriate to reduce radiation dose to as low as reasonably achievable. Dictated by Wil Perez MD @ 04/27/2024 4:23:55 AM Discharge Plan Discharge Clinical Impression: Gastroenteritis Patient Disposition: Home w/ Parent or Adult Condition: Stable Instructions: Acute Nausea and Vomiting (DC) Additional Instructions: Your lab testing shows mildly high blood sugar but nothing critical. There are no signs of significant infection, electrolyte abnormality, dehydration or other abnormality. We are seeing a lot of patients with stomach flu right now. I do suspect that this is what is going on. Her CT does not show any obstruction, infection, strangulated hernia or other abnormality. This is great news. Unfortunately, your nausea and vomiting symptoms will likely last for a few days. Drink plenty of fluids and slowly advance your diet as tolerated. Your given some IV fluid to help offset this. I have given her prescription for some ondansetron, also known as Zofran. I would recommend that you take another dose today at around 10:00 a.m. and continue using up to every 6 hours as needed to help with nausea and vomiting. Return to the emergency department if her symptoms are not starting to improve in 2-3 days. Keep a close eye on your blood sugars. If you are not eating well, your blood sugars can unexpectedly drop. They are not low at this time but I have chosen not to aggressively treat the slightly high blood sugar out of concern that your blood sugar may drop if you are not eating well. Your given some Imodium to help with diarrhea. You may repeat this to mg up to every 2 hours as needed if you continue to have diarrhea. Activity Level: Activity as Tolerated Discharge Diet: Diabetic Prescriptions: New ondansetron 4 mg tablet,disintegrating 4 mg PO Q6H PRN (Reason: nausea and vomiting) Qty: 10 0RF No Action amlodipine 10 mg tablet 10 mg PO DAILY aripiprazole 15 mg tablet 7.5 mg PO DAILY Eliquis 5 mg tablet 5 mg PO BID aspirin 81 mg tablet,delayed release (DR/EC) 81 mg PO DAILY venlafaxine 75 mg capsule,extended release 24hr 225 mg PO DAILY torsemide 20 mg tablet 20 mg PO DAILY chlorthalidone 25 mg tablet 25 mg PO DAILY carbamazepine 200 mg tablet 200 mg PO BID pantoprazole 40 mg tablet,delayed release (DR/EC) 40 mg PO DAILY hydralazine 50 mg tablet 50 mg PO QID Patient Comments: 08,12,16,20 ezetimibe 10 mg tablet 10 mg PO DAILY pregabalin 100 mg capsule 100 mg PO QAM pregabalin 150 mg capsule 150 mg PO HS polyethylene glycol 3350 17 gram/dose powder 17 g PO DAILY Rx Instructions: AND TWICE DAILY NEEDED sennosides [senna] 8.6 mg tablet 8.6 mg PO DAILY ketoconazole 2 % shampoo 1 applic TOPICAL Q3D diphenhydramine HCl [Banophen] 50 mg capsule 50 mg PO Q6H PRN (Reason: itching) loperamide 2 mg capsule 2 mg PO Q6H PRN (Reason: loose stool) acetaminophen 500 mg tablet 500 mg PO Q6H nystatin 100,000 unit/gram powder 1 applic TOPICAL BID PRN albuterol sulfate 90 mcg/actuation HFA aerosol inhaler 1 inh INHALATION Q4H PRN (Reason: bronchospasm) icosapent ethyl [Vascepa] 1 gram capsule 2 g PO BID Humulin R U-500 (Conc) Kwikpen 500 unit/mL (3 mL) insulin pen 100 unit SUBCUT TID clotrimazole 1 % cream 1 applic topical BID Rx Instructions: GROIN,PERIAREA AND ABDOMIN ergocalciferol (vitamin D2) 1,250 mcg (50,000 unit) capsule 50,000 unit PO WE@09 hydrocortisone 2.5 % cream 1 applic topical BID PRNQty: 30 1RF ammonium lactate 12 % lotion 1 applic topical BID Qty: 225 0RF metoprolol succinate 200 mg tablet extended release 24 hr 200 mg PO DAILY isosorbide mononitrate 60 mg tablet extended release 24 hr 60 mg PO DAILY Ozempic 1 mg/dose (4 mg/3 mL) pen injector 1 mg subcut .weekly insulin glargine [Basaglar KwikPen U-100 Insulin] 100 unit/mL (3 mL) insulin pen 30 unit subcut BID cyclobenzaprine 10 mg tablet 10 mg PO HS PRN (Reason: muscle spasm) Qty: 20 0RF Rx Instructions: Muscle relaxant to use at bedtime if needed for back pain potassium chloride 20 mEq tablet,ER particles/crystals 40 meq PO BID rosuvastatin 40 mg tablet 40 mg PO HS carvedilol 25 mg Tablet 25 mg PO DAILY doxycycline hyclate 100 mg capsule 100 mg PO BID Qty: 10 0RF Follow Up/Referrals: Provider,Not a Local [Primary Care Provider] - Stand Alone Forms: [facility] Info Instructions
[2024-04-27 02:57] LABS: Glucose* 405 mg/dL (60-115)
--- NOTE | 2024-04-27 03:02 | CRLHL7_ITS ---
For Patients: As a result of the Century Cures Act, medical imaging exams and procedure reports are released immediately into your electronic medical record. You may view this report before your referring provider. If you have questions, please contact your health care provider. INDICATION: Vomiting. Delirium. COMPARISON: An abdomen and pelvis CT dated March 05, 2024. No prior chest CTs available for comparison TECHNIQUE: CT examination of the chest, abdomen and pelvis was performed following the uneventful intravenous administration of 127 cc of Isovue 370. Thin section axial images were obtained from the thoracic inlet through the pubic symphysis. Oral contrast was not administered. Sagittal and coronal reformatted imaging was performed. Please note that all CT scans at this facility use dose modulation, iterative reconstruction, and/or weight-based dosing when appropriate to reduce radiation dose to as low as reasonably achievable. FINDINGS: CHEST: The heart is mildly enlarged. There is no mediastinal or hilar adenopathy or mass. Atherosclerotic vascular calcifications are noted. Low lung volumes. Patchy multifocal ground-glass could be congestive or inflammatory. No focal consolidation, infiltrate or mass. No pleural effusion or pneumothorax. There is also minimal atelectasis at the bases. The bolus is not timed to evaluate the pulmonary artery distribution though there are no large central pulmonary emboli identified. ABDOMEN AND PELVIS: LIVER/BILIARY SYSTEM:Enlarged fatty infiltrated liver. No focal mass or biliary ductal dilation. Gallbladder is surgically absent. ADRENALS: Normal KIDNEYS, URETERS and BLADDER:No solid renal mass. Right renal cyst measuring about 9.5 centimeters. No obstructive uropathy of the ureters. Mild bladder wall thickening which may be related to chronic bladder outlet obstruction, less likely cystitis. Correlate with urinalysis. SPLEEN:Normal appearance. PANCREAS: Appears normal. RETROPERITONEUM and MESENTERY: There is no mass, adenopathy or aortic aneurysm. Atherosclerotic vascular calcification GASTROINTESTINAL SYSTEM: There is no evidence of diverticulitis, colitis, mechanical obstruction, or appendicitis. The small bowel as visualized appears normal. PELVIS: No mass, adenopathy or free fluid. OSSEOUS STRUCTURES and ABDOMINAL WALL: Degenerative changes. Fat containing ventral hernia. OTHER: No free fluid or free air. IMPRESSION: 1. CHEST: Mildly enlarged heart. Low lung volumes. Minimal basilar atelectasis. Patchy multifocal ground-glass which could be congestive or inflammatory. No focal consolidation, infiltrate, mass, pleural effusion or pneumothorax. Not timed for pulmonary artery distribution but no large central pulmonary emboli 2. ABDOMEN AND PELVIS: Enlarged fatty infiltrated liver. Surgically absent gallbladder. Right renal cyst. Fat containing ventral hernia. No specific visible cause for vomiting. 3. OSSEOUS STRUCTURES AND BODY WALL: Degenerative changes. Redemonstration of a fat containing ventral hernia. Please note that all CT scans at this facility use dose modulation, iterative reconstruction, and/or weight-based dosing when appropriate to reduce radiation dose to as low as reasonably achievable. Dictated by Wil Perez MD @ 04/27/2024 4:23:55 AM (Electronically Signed)
[2024-04-27] MEDS: ACETAMINOPHEN 500 MG TABLET 1000 MG PO (04:57)
[2024-04-27] MEDS: LOPERAMIDE HCL 2 MG CAPSULE 4 MG PO (05:00)
[2024-04-27] MEDS: LACTATED RINGERS 500 ML 500 ML 2000 ML IV (05:00)
== END 2024-04-27 05:37 | disposition home or self-care (01) ==
PROVIDERS: Emergency Provider Family Medicine
DX: K52.9 Noninfective gastroenteritis and colitis, unspecified (principal)
CPT/HCPCS: 36415; 71260; 74177; 80053; 81003; 82803; 83605; 83690; 84484; 85025; 93005; 96374; 96376; 99284; 99285; A9270; J2405; J7030; J7120; Q9967

== ENCOUNTER 2024-04-27 05:35 | Outpatient (CLI) | payer MEDICARE, MEDICAID, SELFPAY | END 2024-04-27 05:36 | disposition home or self-care (01) | LOC: AMB 05-05 14:21 | PROVIDERS: Visit Provider Emergency Medicine | DX: K52.9 Noninfective gastroenteritis and colitis, unspecified (principal); E66.01 Morbid (severe) obesity due to excess calories; Z74.01 Bed confinement status | CPT/HCPCS: A0425; A0428 ==

== ENCOUNTER 2024-04-28 07:29 | Outpatient (CLI) | payer MEDICARE, MEDICAID, SELFPAY | END 2024-04-28 07:30 | disposition home or self-care (01) | LOC: AMB 04-30 05:16 | PROVIDERS: Visit Provider Internal Medicine | DX: R19.7 Diarrhea, unspecified (principal) | CPT/HCPCS: A0425; A0429 ==

== ENCOUNTER 2024-04-28 08:06 | Emergency (ER) | payer MEDICARE, MEDICAID, SELFPAY ==
[2024-04-28 08:12] VITALS: BP 123/63; PULSE 87; RESP 18; TEMP 36.8; O2SAT 98; BMI 62.9
[2024-04-28 08:13] VITALS: PULSE 81; O2SAT 95
[2024-04-28 08:15] VITALS: PULSE 80; O2SAT 96
--- NOTE | 2024-04-28 08:24 | ED.GENADULT ---
HPI - General Adult General Date Seen: 04/28/24 Chief complaint: Diarrhea Stated complaint: Diarrhea Time Seen by Provider: 04/28/24 08:15 Source: patient Mode of arrival: EMS History of Present Illness HPI narrative: Patient is a 63-year-old gentleman from assisted living. He was seen here a little over 24 hours ago with a diagnosis of gastroenteritis. He reports that the vomiting has stopped but he still has copious liquid diarrhea. He denies bloody stools. He has diffuse abdominal pain. He has not had fevers. He walks with a walker and says he has been able to get around, but the diarrhea is not any better. Denies recent antibiotics. Medical history reviewed. He is anticoagulated on Eliquis, insulin dependent. He is on Ozempic, has Senna listed as a medication, he does not know his medications at all and says that someone else manages those. Unclear whether he has continued to receive that despite the diarrhea. Related Data Home Medications ?Medication ?Instructions ?Recorded ?Confirmed amlodipine 10 mg tablet 10 mg PO DAILY 03/07/22 04/28/24 apixaban 5 mg tablet (Eliquis) 5 mg PO BID 03/07/22 04/28/24 aripiprazole 15 mg tablet 7.5 mg PO DAILY 03/07/22 04/28/24 aspirin 81 mg tablet,delayed 81 mg PO DAILY 03/07/22 04/28/24 release carbamazepine 200 mg tablet 200 mg PO BID 03/07/22 04/28/24 chlorthalidone 25 mg tablet 25 mg PO DAILY 03/07/22 04/28/24 ezetimibe 10 mg tablet 10 mg PO DAILY 03/07/22 04/28/24 hydralazine 50 mg tablet 50 mg PO QID 03/07/22 04/28/24 pantoprazole 40 mg tablet,delayed 40 mg PO DAILY 03/07/22 04/28/24 release polyethylene glycol 3350 17 17 g PO DAILY 03/07/22 04/28/24 gram/dose oral powder pregabalin 100 mg capsule 100 mg PO QAM 03/07/22 04/28/24 pregabalin 150 mg capsule 150 mg PO HS 03/07/22 04/28/24 torsemide 20 mg tablet 20 mg PO DAILY 03/07/22 04/28/24 venlafaxine 75 mg capsule,extended 225 mg PO DAILY 03/07/22 04/28/24 release 24 hr acetaminophen 500 mg tablet 500 mg PO Q6H 06/13/22 04/28/24 albuterol sulfate 90 mcg/actuation 1 inh inhalation Q4H PRN 06/13/22 04/28/24 aerosol inhaler bronchospasm diphenhydramine HCl 50 mg capsule 50 mg PO Q6H PRN itching 06/13/22 04/28/24 (Banophen) icosapent ethyl 1 gram capsule 2 g PO BID 06/13/22 04/28/24 (Vascepa) insulin regular hum U-500 conc 500 100 unit subcut TID 06/13/22 02/20/24 unit/mL(3 mL) subcut pen (Humulin R U-500 (Conc) Insulin Kwikpen) ketoconazole 2 % shampoo 1 applic topical Q3D 06/13/22 04/28/24 loperamide 2 mg capsule 2 mg PO Q6H PRN loose stool 06/13/22 02/21/24 nystatin 100,000 unit/gram topical 1 applic topical BID PRN 06/13/22 02/20/24 powder sennosides 8.6 mg tablet (senna) 8.6 mg PO DAILY 06/13/22 04/28/24 clotrimazole 1 % topical cream 1 applic topical BID 07/25/22 04/28/24 insulin glargine 100 unit/mL (3 30 unit subcut BID 12/27/23 04/28/24 mL) subcutaneous pen (Basaglar KwikPen U-100 Insulin) isosorbide mononitrate 60 mg 60 mg PO DAILY 12/27/23 04/28/24 tablet,extended release 24 hr metoprolol succinate 200 mg 200 mg PO DAILY 12/27/23 04/28/24 tablet,extended release 24 hr semaglutide 1 mg/dose (4 mg/3 mL) 1 mg subcut .weekly 12/27/23 04/28/24 subcutaneous pen injector (Ozempic) carvedilol 25 mg tablet 25 mg PO DAILY 02/20/24 04/28/24 potassium chloride 20 mEq 40 meq PO BID 02/20/24 04/28/24 tablet,extended release(part/cryst) rosuvastatin 40 mg tablet 40 mg PO HS 02/20/24 04/28/24 Previous Rx's ?Medication ?Instructions ?Recorded hydrocortisone 2.5 % topical cream 1 applic topical BID PRN #30 grams 09/14/22 ammonium lactate 12 % lotion 1 applic topical BID #225 grams 04/01/23 ondansetron 4 mg disintegrating 4 mg PO Q6H PRN nausea and 04/27/24 tablet vomiting #10 tabs diphenoxylate-atropine 2.5 1 tab PO DAILY PRN diarrhea 2 days 04/28/24 mg-0.025 mg tablet (Lomotil) #2 tabs Allergies Allergy/AdvReac Type Severity Reaction Status Date / Time lisinopril Allergy Mild Cough Verified 03/05/24 12:34 metformin AdvReac Verified 03/05/24 12:34 Review of Systems Status of ROS: Reports: 10 or more systems reviewed and unremarkable except as noted in History and below [facility] Medical History Anemia in chronic kidney disease (CKD) ?N18.9 - Chronic kidney disease, unspecified (ICD-10) ?D63.1 - Anemia in chronic kidney disease (ICD-10) Chronic kidney disease (CKD), stage IV (severe) ?N18.4 - Chronic kidney disease, stage 4 (severe) (ICD-10) DISH (diffuse idiopathic skeletal hyperostosis) ?M48.10 - Ankylosing hyperostosis [[place]], site unspecified (ICD-10) Edema ?R60.9 - Edema, unspecified (ICD-10) Neuropathy ?G62.9 - Polyneuropathy, unspecified (ICD-10) Learning disability ?F81.9 - Developmental disorder of scholastic skills, unspecified (ICD-10) Insomnia ?G47.00 - Insomnia, unspecified (ICD-10) Metabolic syndrome ?E88.810 - Metabolic syndrome (ICD-10) Sensorineural hearing loss (SNHL) of both ears ?H90.3 - Sensorineural hearing loss, bilateral (ICD-10) Tinnitus ?H93.19 - Tinnitus, unspecified ear (ICD-10) Hypercholesterolemia ?E78.00 - Pure hypercholesterolemia, unspecified (ICD-10) Insulin dependent diabetes mellitus Recurrent deep vein thrombosis (DVT) ?I82.409 - Acute embolism and thrombosis of unspecified deep veins of unspecified lower extremity (ICD-10) Hypertension ?I10 - Essential (primary) hypertension (ICD-10) Coronary artery disease ?I25.10 - Atherosclerotic heart disease of [place] coronary artery without angina pectoris (ICD-10) Hypertriglyceridemia ?E78.1 - Pure hyperglyceridemia (ICD-10) Epilepsy ?G40.909 - Epilepsy, unspecified, not intractable, without status epilepticus (ICD-10) TASHI on CPAP ?G47.33 - Obstructive sleep apnea (adult) (pediatric) (ICD-10) ?Z99.89 - Dependence on other enabling machines and devices (ICD-10) Tachypnea ?R06.82 - Tachypnea, not elsewhere classified (ICD-10) Fever ?R50.9 - Fever, unspecified (ICD-10) CKD (chronic kidney disease) ?N18.9 - Chronic kidney disease, unspecified (ICD-10) Gout ?M10.9 - Gout, unspecified (ICD-10) Major depressive disorder ?F32.9 - Major depressive disorder, single episode, unspecified (ICD-10) Type 2 diabetes mellitus ?E11.9 - Type 2 diabetes mellitus without complications (ICD-10) Obesity ?E66.9 - Obesity, unspecified (ICD-10) Surgical History History of cholecystectomy ?Z90.49 - Acquired absence of other specified parts of digestive tract (ICD-10) Social History Narrative: Lives in a nursing home in [place], [place]. Sisters Brittany Suggs ([phone]) and Blanka Mcduffie ([phone]) listed as contacts and medical decision makers. Paperwork from nursing home indicates Full Code status. What is your current living situation?: I presently have a place to live Problems where you live: no known problems Problems where you live details: none In the past 12 months, utilities in danger of being shut off: no In the past 12 mos, have been you worried that your food would run out before you had money to buy more?: never true In the past 12 mos, the food you bought just didn't last and you didn't have money to buy more?: never true Highest level of school completed/degree received: 12th grade, no diploma Smoking Status: Never smoker Do you use any of these nicotine containing products: None Second hand tobacco smoke exposure: No How often do you have a drink containing alcohol: never How often do you have six or more drinks on one occasion: Never AUDIT-C Alcohol total score: 0 Non-prescribed substance use: denies use Caffeine: No How often does anyone, including family, friends and others, physically hurt you: never How often does anyone, including family, friends and others, insult or talk down to you: never How often does anyone, including family, friends and others, threaten you with harm: never How often does anyone, including family, friends and others, scream or curse at you: never service: No Exam Narrative: Exam Narrative: Vital signs reviewed In general, alert, nontoxic Male. He is significantly overweight. Head: Normocephalic, atraumatic. Eyes: Sclera clear. Pupils equal and reactive. ENT: Mucous membranes Are a little dry. Neck: Supple without adenopathy. Heart: Regular rate and rhythm without murmur. Lungs: Clear. No increased work of breathing, crackles or wheezes. Abdomen: Soft, nontender to palpation. Exam limited by body habitus. Extremities: Well perfused. Mild edema and venous stasis changes noted bilaterally. No calf tenderness or erythema. Neurologic: Alert, conversant. Speech fluent, face symmetric. Moves all extremities equally. Skin: Warm, dry well perfused. Affect: Normal. Const: Vital Signs, click to edit/add: Vital Signs - 24 hr 04/28/24 08:12 04/28/24 08:13 04/28/24 08:15 Temperature 98.3 F Pulse Rate 81 80 Pulse Rate [Pulse Oximeter] 87 Respiratory Rate 18 Blood Pressure Blood Pressure [Le ft Forearm] 123/63 Pulse Oximetry 98 95 96 Oxygen Delivery Me thod Room Air 04/28/24 09:01 Temperature Pulse Rate 80 Pulse Rate [Pulse Oximeter] Respiratory Rate Blood Pressure 127/60 Blood Pressure [Le ft Forearm] Pulse Oximetry 96 Oxygen Delivery Me thod Documenting provider has reviewed patient's vital signs: yes Course Course ED Course: We will place an IV and give some normal saline here, check some labs and see how those look. I think it will give him a dose of Lomotil. If labs are all normal, it sounds as if he is actually managing at home reasonably well, but will rule out metabolic derangement, abdominal exam is benign at this time, he had a CT scan which I reviewed when he was just here a day ago that was unremarkable. I do not think he needs repeat imaging unless labs are concerning. Labs here pretty reassuring. Potassium is 3.3, calcium was 7.6. He has at other points in the past had an intermittently low calcium, reviewing prior records. His CRP is elevated at 14, but as an isolated finding with a normal lactate of 1.6 and an essentially normal white blood cell count of 4.5, I do not think this indicates a need for repeat imaging. Again his abdominal exam is benign. He was ambulatory around the emergency department without difficulty. He did not have any diarrhea here. I did order a C diff here but he did not have any stool production. In talking with the facility, their primary concern was that they had difficulty ambulating him today, he is not having difficulty at this time and is getting around with his walker. I think it is reasonable to let him go home. I have written orders for assisted living to hold his MiraLax and senna and till as diarrhea is resolved, I have given 2 additional days of Lomotil, have recommended recheck potassium and calcium levels next week and recommended C diff testing as well. Return any time for worsening or new symptoms such as bloody stools, high fevers, recurrent vomiting, worsening weakness. Vital Signs Vital signs: Initial Vital Signs Temperature 98.3 F 04/28/24 08:12 Temperature Source Temporal Artery Scan 04/28/24 08:12 Pulse Rate 87 04/28/24 08:12 Respiratory Rate 18 04/28/24 08:12 Blood Pressure 123/63 04/28/24 08:12 Blood Pressure Mean 83 04/28/24 08:12 Pulse Oximetry 98 04/28/24 08:12 Oxygen Delivery Method Room Air 04/28/24 08:12 Vital Signs Temperature 98.3 F 04/28/24 08:12 Pulse Rate 87 04/28/24 08:12 Respiratory Rate 18 04/28/24 08:12 Blood Pressure 123/63 04/28/24 08:12 Pulse Oximetry 98 04/28/24 08:12 Oxygen Delivery Method Room Air 04/28/24 08:12 Temperature 98.3 F 04/28/24 08:12 Pulse Rate 80 04/28/24 09:01 Respiratory Rate 18 04/28/24 08:12 Blood Pressure 127/60 04/28/24 09:01 Pulse Oximetry 96 04/28/24 09:01 Oxygen Delivery Method Room Air 04/28/24 08:12 Medications Administered Medications: Discontinued Medications Generic Name Dose Route Start Last Admin Trade Name Rosio PRN Reason Stop Dose Admin Diphenoxylate HCl/Atropine 1 tab 04/28/24 08:29 04/28/24 08:58 Diphenoxylate-Atrop 2.5-0.025 Tablet PO 04/28/24 08:30 1 tab ONCE ONE Administration Sodium Chloride 500 mls @ 500 mls/hr 04/28/24 08:17 04/28/24 10:00 0.9 % Sodium Chloride 500 Ml IV 04/28/24 09:16 Infused .Q1H ONE Infusion Medical Decision Making Lab Data Labs: Lab Results 04/28/24 04/28/24 04/28/24 Range/Units 08:25 08:25 08:25 WBC 4.48 L (4.50-11.00) K/uL RBC 4.20 L (4.30-5.90) m/uL Hgb 12.1 L (13.5-17.5) gm/dL Hct 35.6 L (37.0-53.0) % MCV 85 (80-100) fL MCH 29 (26-34) pg MCHC 34 (32-36) gm/dL RDW Coeff of Kaylen 14.5 (11.5-15.5) % Plt Count 134 L (140-440) K/uL Neut % (Auto) 57.8 (42.0-72.0) % Lymph % (Auto) 31.5 (20-44) % [place] % (Auto) 8.5 (0.0-11.0) % Eos % (Auto) 1.3 (0.0-7.0) % Baso % (Auto) 0.2 (0.0-3.0) % Neut # (Auto) 2.60 (1.7-7.0) K/uL Lymph # (Auto) 1.40 (0.90-2.90) K/uL [place] # (Auto) 0.40 (0.00-0.90) K/UL Eos # (Auto) 0.10 (0.00-0.50) K/uL Baso # (Auto) 0.00 (0.00-0.30) K/uL Abs Immat Gran (auto) 0.00 (0.00-0.30) K/uL Imm/Tot Granulo (auto) 0.7 % Sodium Cancelled 134 L Potassium Cancelled 3.3 L Chloride Cancelled Carbon Dioxide Anion Gap BUN Creatinine Estimated Creat Clear Estimated GFR Glucose Lactate (0.5-1.9) mmol/L Calcium Magnesium (1.5-2.6) mg/dL Total Bilirubin (0.1-1.5) mg/dL Direct Bilirubin (0.0-0.5) mg/dL AST (12-35) U/L ALT (4-50) U/L Alkaline Phosphatase (40-150) U/L C-Reactive Protein (0.5-1.0) mg/dL Total Protein (6.0-8.3) g/dL Albumin (3.3-5.0) g/dL 04/28/24 04/28/24 04/28/24 Range/Units 08:25 08:25 08:25 WBC (4.50-11.00) K/uL RBC (4.30-5.90) m/uL Hgb (13.5-17.5) gm/dL Hct (37.0-53.0) % MCV (80-100) fL MCH (26-34) pg MCHC (32-36) gm/dL RDW Coeff of Kaylen (11.5-15.5) % Plt Count (140-440) K/uL Neut % (Auto) (42.0-72.0) % Lymph % (Auto) (20-44) % [place] % (Auto) (0.0-11.0) % Eos % (Auto) (0.0-7.0) % Baso % (Auto) (0.0-3.0) % Neut # (Auto) (1.7-7.0) K/uL Lymph # (Auto) (0.90-2.90) K/uL [place] # (Auto) (0.00-0.90) K/UL Eos # (Auto) (0.00-0.50) K/uL Baso # (Auto) (0.00-0.30) K/uL Abs Immat Gran (auto) (0.00-0.30) K/uL Imm/Tot Granulo (auto) % Sodium Potassium Chloride 98 Carbon Dioxide Cancelled 28 Anion Gap Cancelled 8 BUN Cancelled Creatinine Estimated Creat Clear Estimated GFR Glucose Lactate (0.5-1.9) mmol/L Calcium Magnesium (1.5-2.6) mg/dL Total Bilirubin (0.1-1.5) mg/dL Direct Bilirubin (0.0-0.5) mg/dL AST (12-35) U/L ALT (4-50) U/L Alkaline Phosphatase (40-150) U/L C-Reactive Protein (0.5-1.0) mg/dL Total Protein (6.0-8.3) g/dL Albumin (3.3-5.0) g/dL 04/28/24 04/28/24 04/28/24 Range/Units 08:25 08:25 08:25 WBC (4.50-11.00) K/uL RBC (4.30-5.90) m/uL Hgb (13.5-17.5) gm/dL Hct (37.0-53.0) % MCV (80-100) fL MCH (26-34) pg MCHC (32-36) gm/dL RDW Coeff of Kaylen (11.5-15.5) % Plt Count (140-440) K/uL Neut % (Auto) (42.0-72.0) % Lymph % (Auto) (20-44) % [place] % (Auto) (0.0-11.0) % Eos % (Auto) (0.0-7.0) % Baso % (Auto) (0.0-3.0) % Neut # (Auto) (1.7-7.0) K/uL Lymph # (Auto) (0.90-2.90) K/uL [place] # (Auto) (0.00-0.90) K/UL Eos # (Auto) (0.00-0.50) K/uL Baso # (Auto) (0.00-0.30) K/uL Abs Immat Gran (auto) (0.00-0.30) K/uL Imm/Tot Granulo (auto) % Sodium Potassium Chloride Carbon Dioxide Anion Gap BUN 43 H Creatinine Cancelled 1.3 Estimated Creat Clear Cancelled 51.80 Estimated GFR Cancelled Glucose Lactate (0.5-1.9) mmol/L Calcium Magnesium (1.5-2.6) mg/dL Total Bilirubin (0.1-1.5) mg/dL Direct Bilirubin (0.0-0.5) mg/dL AST (12-35) U/L ALT (4-50) U/L Alkaline Phosphatase (40-150) U/L C-Reactive Protein (0.5-1.0) mg/dL Total Protein (6.0-8.3) g/dL Albumin (3.3-5.0) g/dL 04/28/24 04/28/24 04/28/24 Range/Units 08:25 08:25 08:25 WBC (4.50-11.00) K/uL RBC (4.30-5.90) m/uL Hgb (13.5-17.5) gm/dL Hct (37.0-53.0) % MCV (80-100) fL MCH (26-34) pg MCHC (32-36) gm/dL RDW Coeff of Kaylen (11.5-15.5) % Plt Count (140-440) K/uL Neut % (Auto) (42.0-72.0) % Lymph % (Auto) (20-44) % [place] % (Auto) (0.0-11.0) % Eos % (Auto) (0.0-7.0) % Baso % (Auto) (0.0-3.0) % Neut # (Auto) (1.7-7.0) K/uL Lymph # (Auto) (0.90-2.90) K/uL [place] # (Auto) (0.00-0.90) K/UL Eos # (Auto) (0.00-0.50) K/uL Baso # (Auto) (0.00-0.30) K/uL Abs Immat Gran (auto) (0.00-0.30) K/uL Imm/Tot Granulo (auto) % Sodium Potassium Chloride Carbon Dioxide Anion Gap BUN Creatinine Estimated Creat Clear Estimated GFR 61 Glucose Cancelled 194 H Lactate 1.6 (0.5-1.9) mmol/L Calcium Cancelled 7.6 L Magnesium 1.9 (1.5-2.6) mg/dL Total Bilirubin 0.7 (0.1-1.5) mg/dL Direct Bilirubin 0.0 (0.0-0.5) mg/dL AST 34 (12-35) U/L ALT 23 (4-50) U/L Alkaline Phosphatase 77 (40-150) U/L C-Reactive Protein 14.0 H (0.5-1.0) mg/dL Total Protein 6.2 (6.0-8.3) g/dL Albumin 3.4 (3.3-5.0) g/dL Discharge Plan Discharge Clinical Impression: Diarrhea Patient Disposition: Home, Self-Care Condition: Stable Instructions: Acute Diarrhea (ED) Additional Instructions: Lomotil as prescribed to help with diarrhea. Your labs today otherwise look good. Your potassium and calcium are a little bit low and these should be rechecked next week to make sure they have normalized. Prescriptions: New diphenoxylate-atropine [Lomotil] 2.5-0.025 mg tablet 1 tab PO DAILY PRN (Reason: diarrhea) 2 Days Qty: 2 0RF Rx Instructions: Start 12-14 No Action amlodipine 10 mg tablet 10 mg PO DAILY aripiprazole 15 mg tablet 7.5 mg PO DAILY Eliquis 5 mg tablet 5 mg PO BID aspirin 81 mg tablet,delayed release (DR/EC) 81 mg PO DAILY venlafaxine 75 mg capsule,extended release 24hr 225 mg PO DAILY torsemide 20 mg tablet 20 mg PO DAILY chlorthalidone 25 mg tablet 25 mg PO DAILY carbamazepine 200 mg tablet 200 mg PO BID pantoprazole 40 mg tablet,delayed release (DR/EC) 40 mg PO DAILY hydralazine 50 mg tablet 50 mg PO QID Patient Comments: 08,12,16,20 ezetimibe 10 mg tablet 10 mg PO DAILY pregabalin 100 mg capsule 100 mg PO QAM pregabalin 150 mg capsule 150 mg PO HS polyethylene glycol 3350 17 gram/dose powder 17 g PO DAILY Rx Instructions: AND TWICE DAILY NEEDED sennosides [senna] 8.6 mg tablet 8.6 mg PO DAILY ketoconazole 2 % shampoo 1 applic TOPICAL Q3D diphenhydramine HCl [Banophen] 50 mg capsule 50 mg PO Q6H PRN (Reason: itching) loperamide 2 mg capsule 2 mg PO Q6H PRN (Reason: loose stool) acetaminophen 500 mg tablet 500 mg PO Q6H nystatin 100,000 unit/gram powder 1 applic TOPICAL BID PRN albuterol sulfate 90 mcg/actuation HFA aerosol inhaler 1 inh INHALATION Q4H PRN (Reason: bronchospasm) icosapent ethyl [Vascepa] 1 gram capsule 2 g PO BID Humulin R U-500 (Conc) Kwikpen 500 unit/mL (3 mL) insulin pen 100 unit SUBCUT TID clotrimazole 1 % cream 1 applic topical BID Rx Instructions: GROIN,PERIAREA AND ABDOMIN hydrocortisone 2.5 % cream 1 applic topical BID PRNQty: 30 1RF ammonium lactate 12 % lotion 1 applic topical BID Qty: 225 0RF metoprolol succinate 200 mg tablet extended release 24 hr 200 mg PO DAILY isosorbide mononitrate 60 mg tablet extended release 24 hr 60 mg PO DAILY Ozempic 1 mg/dose (4 mg/3 mL) pen injector 1 mg subcut .weekly insulin glargine [Basaglar KwikPen U-100 Insulin] 100 unit/mL (3 mL) insulin pen 30 unit subcut BID potassium chloride 20 mEq tablet,ER particles/crystals 40 meq PO BID rosuvastatin 40 mg tablet 40 mg PO HS carvedilol 25 mg Tablet 25 mg PO DAILY ondansetron 4 mg tablet,disintegrating 4 mg PO Q6H PRN (Reason: nausea and vomiting) Qty: 10 0RF Follow Up/Referrals: Provider,Not a Local [Primary Care Provider] - Stand Alone [facility] Inst[facility]
[2024-04-28 08:35] LABS: Lactate Sepsis w/Reflex* 1.6 mmol/L (0.5-1.9)
[2024-04-28] MEDS: 0.9 % SODIUM CHLORIDE 500 ML 500 ML IV (08:38)
[2024-04-28 08:44] LABS: Basophils Percent Auto 0.2 % (0.0-3.0); Eosinophils Percent Auto 1.3 % (0.0-7.0); Hematocrit 35.6 % (37.0-53.0); Hemoglobin* 12.1 gm/dL (13.5-17.5); Immature Granulocytes Pct Auto 0.7 %; Lymphocytes Percent Auto 31.5 % (20-44); Mean Corpuscular HGB Conc 34 gm/dL (32-36); Mean Corpuscular Hemoglobin 29 pg (26-34); Mean Corpuscular Volume 85 fL (80-100); Monocytes Percent Auto 8.5 % (0.0-11.0); Neutrophils Percent Auto 57.8 % (42.0-72.0); Platelet Count* 134 K/uL (140-440); RDW Coefficient of Variation % 14.5 % (11.5-15.5); White Blood Count* 4.48 K/uL (4.50-11.00)
[2024-04-28 08:50] LABS: Albumin* 3.4 g/dL (3.3-5.0); Chloride* 98 mmol/L (96-114)
[2024-04-28 08:51] LABS: Potassium* 3.3 mmol/L (3.6-5.1); Sodium* 134 mmol/L (135-149)
[2024-04-28 08:53] LABS: Alkaline Phosphatase* 77 U/L (40-150); Anion Gap 8 mEq/L (7-15); Aspartate Amino Transferase* 34 U/L (12-35); Bilirubin Total* 0.7 mg/dL (0.1-1.5); Blood Urea Nitrogen* 43 mg/dL (7-30); Carbon Dioxide* 28 mmol/L (20-32); Creatinine* 1.3 mg/dL (0.5-1.5); Estimated Glomerular Filt Rate 61 ml/min; Total Protein* 6.2 g/dL (6.0-8.3)
[2024-04-28 08:54] LABS: Alanine Aminotransferase* 23 U/L (4-50); Calcium* 7.6 mg/dL (8.4-10.6); Glucose* 194 mg/dL (60-115); Magnesium* 1.9 mg/dL (1.5-2.6)
[2024-04-28] MEDS: DIPHENOXYLATE-ATROP 2.5-0.025 TABLET 1 TAB PO (08:58)
[2024-04-28 09:01] VITALS: BP 127/60; PULSE 80; O2SAT 96
[2024-04-28 09:06] LABS: Slide Review Reflex No
== END 2024-04-28 10:45 | disposition home or self-care (01) ==
PROVIDERS: Emergency Provider Emergency Medicine
DX: R19.7 Diarrhea, unspecified (principal)
CPT/HCPCS: 36415; 80048; 80076; 83605; 83735; 85025; 86140; 87493; 99283; 99284; A9270; J7030

== ENCOUNTER 2024-04-28 10:39 | Outpatient (CLI) | payer MEDICARE, MEDICAID, SELFPAY | END 2024-04-28 10:40 | disposition home or self-care (01) | LOC: AMB 05-05 14:55 | PROVIDERS: Visit Provider Emergency Medicine | DX: R10.9 Unspecified abdominal pain (principal); Z99.3 Dependence on wheelchair | CPT/HCPCS: A0425; A0428 ==

== ENCOUNTER 2024-10-19 16:07 | Outpatient (CLI) | payer MEDICARE, MEDICAID, SELFPAY | END 2024-10-19 16:08 | disposition home or self-care (01) | LOC: AMB 10-20 09:40 | PROVIDERS: Visit Provider Family Medicine | DX: R68.84 Jaw pain (principal); H92.02 Otalgia, left ear | CPT/HCPCS: A0425; A0427 ==

== ENCOUNTER 2024-10-19 16:51 | Emergency (ER) | payer MEDICARE, MEDICAID, SELFPAY ==
--- OUTSIDE RECORDS SUMMARY | 2020-02-11 19:00 | XMS_ITS | CCD ---
Author Name Akhil Guerrero MD Address [address] [place] [address] Phone Organization [facility] Phone Care Team Providers Care Data Operations Leader Name Role Phone Rosalina Shirley PA-C Primary Care Provider Unavailabl e Rosalina Shirley PA-C Chronic Care Management Unavaila ble Summary Purpose DataExchange Insurance Providers Payer name Policy type / Coverage type Covered democrat ID Effective Begin Date Effective End Date Medicare [place] Medicare Part B [id number] Unknown Unknown Medicaid [place] Medicare Part B [id number] Unknown Unknown Family History Family History data not found Problems Condition Codes Effective Dates Condition St atus Contact with and (suspected) exposure to other viral communicable diseases ICD-10: Z20.828 ICD-9: V01.79 02/05/2020 Active Medication Administered No Medication Administered data Immunizations Vaccine Codes Dose Date Status Influenza CVX: 141 02/13/2019 Hepatitis B CVX: 43 02/16/2014 Hepatitis B CVX: 43 10/12/2013 Hepatitis B CVX: 43 03/14/2013 Tdap CVX: 115 05/07/2009 Tetanus, Diptheria, Pertussis CVX: 115 2008 Reason For Visit No Reason For Visit data Encounters Encounter Performer Location Location Address Codes Date EST. PATIENT, LEVEL I w/ CS modifier Diagnosis: Contact with and (suspected) exposure to other viral communicable diseases[ICD10: Z20.828] Akhil Guerrero [facility] [address] [place] [address] CPT-4: 13020 02/05/2020 Plan of Care Planned Activity Notes Codes Status Date Referral: [facility] [place] WPtel: [address], [address] [id number] [place] Referral Records Received 09/21/2022 Referral: [facility] WPtel: [address] [id number] [place] Referral Completed 05/28/2021 Referral: General Cardiology Referral Complet ed 01/03/2021 Referral: General Psychologist Referral Close d Instructions Comment Date Leonid is a Male being seen living at The [facility]. Initial BPS visit 01/2020. PMHx including DMII, CAD w/ 5 stents, Depression, Seizure Disorder and CKD stage 3. He moved into The [facility] in 12/2019 but after a hospitalization 05/2021 he moved to the [facility] to have closer nursing attention. Sister Jyotsna involved in his care cell# [phone] Guardian: Don (rosalina met in person 09/01/21), now has Lexii (same group as don)Lab Schedule: * 10/06/2022
--- OUTSIDE RECORDS SUMMARY | 2020-02-14 19:00 | XMS_ITS | CCD ---
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 Clin Nurse Spec Name Role Phone Tapan Shirley PA-C Primary Care Provider Unavailabl e Tapan Shirley PA-C Chronic Care Management Unavaila ble Summary Purpose DataExchange Insurance Providers Payer name Policy type / Coverage type Covered libertarian ID Effective Begin Date Effective End Date Medicare [place] Medicare Part B [id number] Unknown Unknown Medicaid [place] Medicare Part B [id number] Unknown Unknown Family History Family History data not found Problems Condition Codes Effective Dates Condition St atus Diabetes Unknown 02/12/2020 Active Diabetes mellitus Type 2 Unknown 02/12/2020 Act annie Anemia due to stage 3b chron ic kidney disease ICD-10: N18.32 ICD-9: 285.21 02/12/2020 Active Chronic kidney disease, stag e 3 unspecified ICD-10: N18.30 02/12/2020 Active CKD stage 3 due to type 2 di abetes mellitus ICD-10: E11.22 ICD-9: 250.40 02/12/2020 Active Contact with and (suspected) exposure to other viral communicable diseases ICD-10: Z20.828 ICD-9: V01.79 02/12/2020 Active Coronary artery disease invo lving [place] coronary artery of [place] heart, angina presence unspecified ICD-10: I25.10 ICD-9: 414.01 02/12/2020 Active Depression ICD-10: F32.9 ICD-9: 311 02/12/2020 Active Gout due to renal impairment ICD-10: M10 .30 ICD-9: 274.10 02/12/2020 Active Hyperlipidemia associated wi th type 2 diabetes mellitus ICD-10: E11.69 ICD-9: 250.80 02/12/2020 Active Learning disability ICD-10: F81.9 ICD-9: 315.2 02/12/2020 Active retirement (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 insulin ICD-10: Z79.4 02/11 Active Lower extremity edema ICD-10: R60.0 ICD-9: 782.3 02/12/2020 Active Secondary hypertension ICD-10: I15.9 ICD-9: 405.99 02/12/2020 Active Seizure disorder ICD-10: G40.909 ICD-9: 345.90 02/12/2020 Active Type 2 diabetes mellitus wit h diabetic polyneuropathy, with long-term current use of insulin ICD-10: E11.42 ICD-9: 250.60 02/12/2020 Active Vitamin D deficiency ICD-10: E55.9 ICD-9: 268.9 02/12/2020 Active Anemia in chronic kidney disease ICD-10: D63.1 020 Resolved Hyperlipidemia, unspecified ICD-10: E78.5 02/12/2020 Resolved Medications Medication Codes Instructions Start Date Stop Date Status Fill Instructions Lyrica 50 mg capsule RxNorm: 072421 Take 1 Capsule(s) Oral QAM every morning 0 02/15/20 20 Inactive Lyrica 100 mg capsule RxNorm: 153658 Take 1 Capsule(s) Oral QHS every night at bedtime 0 02/15/20 20 Inactive Lyrica 100 mg capsule RxNorm: 119092 Take 1 Capsule(s) Oral QHS every night at bedtime 0 02/15/20 20 Inactive Lyrica 50 mg capsule RxNorm: 489502 Take 1 Capsule(s) Oral QAM every morning [...] Codes Status Date Referral: [facility] [place] WPtel: [address], [address] [id number] Referral Records Received 09/21/2022 Referral: [facility] WPtel: [address] [id number] [place] Referral Completed 05/28/2021 Referral: General Cardiology Referral Complet ed 01/03/2021 Referral: General Psychologist Referral Close d Instructions Comment Date Leonid is a Male being seen living at The [facility]. Initial BPS visit 01/2020. PMHx including DMII, CAD w/ 5 stents, Depression, Seizure Disorder and CKD stage 3. He moved into The [facility] in 12/2019 but after a hospitalization 05/2021 he moved to the [facility] to have closer nursing attention. Sister Jyotsna involved in his care cell# [phone] Guardian: Don (tapan met in person 09/01/21), now has Lexii (same group as don)Lab Schedule: * 10/06/2022
--- OUTSIDE RECORDS SUMMARY | 2020-02-19 19:00 | XMS_ITS | CCD ---
Author Name Sandra Mandujano CNP Address [address] [place] [address] Phone Organization [facility] Phone Care Team Providers Care Peel Oven Tender Name Role Phone Tapan Shirley PA-C Primary Care Provider Unavailabl e Tapan Shirley PA-C Chronic Care Management Unavaila ble Summary Purpose DataExchange Insurance Providers Payer name Policy type / Coverage type Covered green party ID Effective Begin Date Effective End Date Medicare [place] Medicare Part B [id number] Unknown Unknown Medicaid [place] Medicare Part B [id number] Unknown Unknown Family History Family History data [...] 02/12/2020 Active Coronary artery disease invo lving [place] coronary artery of [place] heart, angina presence unspecified ICD-10: I25.10 ICD-9: 414.01 02/12/2020 Active Depression ICD-10: F32.9 ICD-9: 311 02/12/2020 Active Gout due to renal impairment ICD-10: M10 .30 ICD-9: 274.10 02/12/2020 Active Hyperlipidemia associated wi th type 2 diabetes mellitus ICD-10: E11.69 ICD-9: 250.80 02/12/2020 Active Learning disability ICD-10: F81.9 ICD-9: 315.2 02/12/2020 Active emt intermediate (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 insulin ICD-10: Z79.4 02/11 [...] Resolved Hyperlipidemia, unspecified ICD-10: E78.5 02/12/2020 Resolved Medication Administered No Medication Administered data Immunizations Vaccine Codes Dose Date Status Influenza CVX: 141 02/13/2019 Hepatitis B CVX: 43 02/16/2014 Hepatitis B CVX: 43 10/12/2013 Hepatitis B CVX: 43 03/14/2013 Tdap CVX: 115 05/07/2009 Tetanus, Diptheria, Pertussis CVX: 115 2008 Reason For Visit No Reason For Visit data Encounters Encounter Performer Location Location Address Codes Date ([phone]) DOMICIL/R-HOME VISIT NEW PAT Diagnosis: Contact with [...] Depression[ICD10: F32.9] Diagnosis: Coronary artery disease involving [place] coronary artery of [place] heart, angina presence unspecified[ICD10: I25.10] Diagnosis: Lower extremity edema[ICD10: R60.0] Diagnosis: Gout due to renal impairment[ICD10: M10.30] Diagnosis: Vitamin D deficiency[ICD10: E55.9] Sandra Mandujano [address] [place] [address] CPT-4: 05484 02/12/2020 Plan of Care Planned Activity Notes Codes Status Date Referral: [facility] WPtel: [address] [id number] [place] Referral Records Received 09/21/2022 Referral: [facility] WPtel: [address] [id number] [place] Referral Completed 05/28/2021 Referral: General Cardiology Referral Complet ed 01/03/2021 Patient Education: Patient M edication Summary Completed 02/12/2020 Patient Education: Alzheimer''s Disease Completed 02/12/2020 Patient Education: Influenza Vaccine Completed 02/12/2020 Patient Education: Dementia Complete d 02/12/2020 Referral: General Psychologist Referral Close d Instructions Comment Date Leonid is a Male being seen living at The [facility]. Initial BPS visit 01/2020. PMHx including DMII, CAD w/ 5 stents, Depression, Seizure Disorder and CKD stage 3. He moved into [facility] in 12/2019 but after a hospitalization 05/2021 he moved to the [facility] to have closer nursing attention. Sister Jyotsna involved in his care cell# [phone] Guardian: Don (tapan met in person 09/01/21), now has Lexii (same group as don)Lab Schedule: * 10/06/2022 Epilepsy Monitor. Diabetes Nursing to send over BG log. Checking A1C Learning disability Continue to live in congregate setting with supports. jail (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 insulin See E11.42 Chronic Kidney Disease Checking CBC Gout due to renal impairment Monitor for acute flare Depression No concerns voiced today. Continue current treatment regimen and monitor. Edema Recently improved. Monitor. Vitamin D Deficiency Checking Vit D level. Contact with and (suspected) exposure to other viral communicable diseases Results: Negative Ischemic Heart Disease Continue to follow with cardiology. Hypertension Take BP daily . 02/12/2020
--- OUTSIDE RECORDS SUMMARY | 2020-03-06 19:00 | XMS_ITS | CCD ---
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 Content Manager Name Role Phone Tapan Shirley PA-C Primary Care Provider Unavailabl e Tapan Shirley PA-C Chronic Care Management Unavaila ble Summary Purpose DataExchange Insurance Providers Payer name Policy type / Coverage type Covered constitution party ID Effective Begin Date Effective End Date Medicare [place] Medicare Part B [id number] Unknown Unknown Medicaid [place] Medicare Part B [id number] Unknown Unknown Family History Family History data not found Allergies, Adverse Reactions, Alerts Substance Reaction Codes Entered Date Inactivated Date Status LISINOPRIL RxNorm: 05460 02/12/2020 No Inactive Da te Active Metformin HCl Unknown 02/12/2020 No Inactive Cristiano e Active Problems Condition Codes Effective Dates Condition St [...] 02/12/2020 Active Coronary artery disease invo lving [place] coronary artery of [place] heart, angina presence unspecified ICD-10: I25.10 ICD-9: 414.01 02/12/2020 Active Depression ICD-10: F32.9 ICD-9: 311 02/12/2020 Active Gout due to renal impairment ICD-10: M10 .30 ICD-9: 274.10 02/12/2020 Active Hyperlipidemia associated wi th type 2 diabetes mellitus ICD-10: E11.69 ICD-9: 250.80 02/12/2020 Active Learning disability ICD-10: F81.9 ICD-9: 315.2 02/12/2020 Active senior care (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 insulin ICD-10: Z79.4 02/11 [...] Fill Instructions Zetia 10 mg tablet RxNorm: 976332 Take 1 Tablet(s) Oral QD 0 09/11/19 21 Inactive Zetia 10 mg tablet RxNorm: 540832 Take 1 Tablet(s) Oral QD 0 03/07/20 20 Inactive Lyrica 50 mg capsule RxNorm: 849044 Take 1 Capsule(s) Oral QAM every morning 0 02/15/20 20 Inactive Lyrica 100 mg capsule RxNorm: 583067 Take 1 Capsule(s) Oral QHS every night at bedtime 0 02/15/20 20 Inactive Lyrica 100 mg capsule RxNorm: 966660 Take 1 Capsule(s) Oral QHS every night at bedtime 0 02/15/20 20 Inactive Lyrica 50 mg capsule RxNorm: 180110 Take 1 Capsule(s) Oral QAM every morning [...] Codes Status Date Referral: [facility] [place] WPtel: [address] [id number] [place] Referral Records Received 09/21/2022 Referral: [facility] WPtel: [address] [id number] [place] Referral Completed 05/28/2021 Referral: General Cardiology Referral Complet ed 01/03/2021 Referral: General Psychologist Referral Close d Instructions Comment Date Leonid is a Male being seen living at The [facility]. Initial BPS visit 01/2020. PMHx including DMII, CAD w/ 5 stents, Depression, Seizure Disorder and CKD stage 3. He moved into [facility] in 12/2019 but after a hospitalization 05/2021 he moved to the [facility] to have closer nursing attention. Sister Jyotsna involved in his care cell# [phone] Guardian: Don (tapan met in person 09/01/21), now has Lexii (same group as don)Lab Schedule: * 10/06/2022
--- OUTSIDE RECORDS SUMMARY | 2020-03-12 19:00 | XMS_ITS | CCD ---
Author Name Sandra Mandujano CNP Address [address] [place] [address] Phone Organization [facility] Phone Care Team Providers Care Centrifuge Separator Tender Name Role Phone Tapan Shirley PA-C Primary Care Provider Unavailabl e Tapan Shirley PA-C Chronic Care Management Unavaila ble Summary Purpose DataExchange Insurance Providers Payer name Policy type / Coverage type Covered constitution party ID Effective Begin Date Effective End Date Medicare [place] Medicare Part B [id number] Unknown Unknown Medicaid [place] Medicare Part B [id number] Unknown Unknown Family History Family History data not found Allergies, Adverse Reactions, Alerts Substance Reaction Codes Entered Date Inactivated Date Status LISINOPRIL RxNorm: 50605 02/12/2020 No Inactive Da te Active Metformin HCl Unknown 02/12/2020 No Inactive Cristiano e Active Problems Condition Codes Effective Dates Condition St atus CKD stage 3 due to type 2 di abetes mellitus ICD-10: E11.22 ICD-9: 250.40 03/11/2020 Active Dandruff in adult ICD-10: L21.0 ICD-9: 690.18 03/11/2020 Active Diabetes Unknown 02/12/2020 Active Diabetes mellitus Type 2 Unknown 02/12/2020 Act annie Anemia due to stage 3b chron ic kidney disease ICD-10: N18.32 ICD-9: 285.21 02/12/2020 Active Chronic kidney disease, stag e 3 unspecified ICD-10: N18.30 02/12/2020 Active Contact with and (suspected) exposure to other viral communicable diseases ICD-10: Z20.828 ICD-9: V01.79 02/12/2020 Active Coronary artery disease invo lving [place] coronary artery of [place] heart, angina presence unspecified ICD-10: I25.10 ICD-9: 414.01 02/12/2020 Active Depression ICD-10: F32.9 ICD-9: 311 02/12/2020 Active Gout due to renal impairment ICD-10: M10 .30 ICD-9: 274.10 02/12/2020 Active Hyperlipidemia associated wi th type 2 diabetes mellitus ICD-10: E11.69 ICD-9: 250.80 02/12/2020 Active Learning disability ICD-10: F81.9 ICD-9: 315.2 02/12/2020 Active residential (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 insulin ICD-10: Z79.4 02/11 [...] Fill Instructions ketoconazole 2 % shampoo RxNorm: 245750 Apply Topical two times a week with showers 0 021 Inactive cholecalciferol (vitamin D3) 50 mcg (2,000 unit) tablet RxNorm: 898589 Take 1 Tablet(s) Oral QD 0 021 Inactive Zetia 10 mg tablet RxNorm: 497644 Take 1 Tablet(s) Oral QD 0 021 Inactive Zetia 10 mg tablet RxNorm: 071380 Take 1 Tablet(s) Oral QD 0 020 Inactive Lyrica 50 mg capsule RxNorm: 777317 Take 1 Capsule(s) Oral QAM every morning 0 020 Inactive Lyrica 100 mg capsule RxNorm: 454217 Take 1 Capsule(s) Oral QHS every night at bedtime 0 Inactive Lyrica 100 mg capsule RxNorm: 812175 Take 1 Capsule(s) Oral QHS every night at bedtime 0 Inactive Lyrica 50 mg capsule RxNorm: 506595 Take 1 Capsule(s) Oral QAM every morning [...] Encounter Performer Location Location Address Codes Date ([address]) DOMICIL/R-HOME VISIT EST PAT Diagnosis: Anemia due [...] Seizure disorder[ICD10: G40.909] Diagnosis: Dandruff in adult[ICD10: L21.0] Sandra Mandujano [facility] [place] [facility] [place] [address] [address] CPT-4: 97566 03/11/2020 Plan of Care Planned Activity Notes Codes Status Date Referral: [facility] WPtel: [address] [id number] [place] Referral Records Received 09/21/2022 Referral: [facility] WPtel: [address] [id number] [place] Referral Completed 05/28/2021 Referral: General Cardiology Referral Complet ed 01/03/2021 Patient Education: Patient M edication Summary Completed 03/11/2020 Patient Education: Influenza Vaccine Completed 03/11/2020 Referral: General Psychologist Referral Close d Instructions Comment Date Leonid is a Male being seen living at The [facility]. Initial BPS visit 01/2020. PMHx including DMII, CAD w/ 5 stents, Depression, Seizure Disorder and CKD stage 3. He moved into The [facility] in 12/2019 but after a hospitalization 05/2021 he moved to the [facility] to have closer nursing attention. Sister Jyotsna involved in his care cell# [phone] Guardian: Don (tapan met in person 09/01/21), now has Lexii (same group as don)Lab Schedule: * 10/06/2022 Epilepsy No seizure activity reported this month. No concerns voiced today. Continue current treatment regimen and monitor. Diabetes GFR improved per records. Continue to monitor Q6m. Continue Iron supplement Continue insulin changes per Windows Server Architect. Continue Zetia along with Pravastatin. Chronic Kidney Disease Continue Ferrous Sulfate Dermatitis Starting Ketoconazole Shampoo Vitamin D Deficiency Increasing Vit D level. . 03/11/2020
--- OUTSIDE RECORDS SUMMARY | 2020-03-12 19:00 | XMS_ITS | CCD ---
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 Methods Engineer Name Role Phone Tapan Shirley PA-C Primary Care Provider Unavailabl e Tapan Shirley PA-C Chronic Care Management Unavaila ble Summary Purpose DataExchange Insurance Providers Payer name Policy type / Coverage type Covered green party ID Effective Begin Date Effective End Date Medicare [place] Medicare Part B [id number] Unknown Unknown Medicaid [place] Medicare Part B [id number] Unknown Unknown Family History Family History data not found Allergies, Adverse Reactions, Alerts Substance Reaction Codes Entered Date Inactivated Date Status LISINOPRIL RxNorm: 84440 02/12/2020 No Inactive Da te Active Metformin [...] 02/12/2020 Active Coronary artery disease invo lving [place] coronary artery of [place] heart, angina presence unspecified ICD-10: I25.10 ICD-9: 414.01 02/12/2020 Active Depression ICD-10: F32.9 ICD-9: 311 02/12/2020 Active Gout due to renal impairment ICD-10: M10 .30 ICD-9: 274.10 02/12/2020 Active Hyperlipidemia associated wi th type 2 diabetes mellitus ICD-10: E11.69 ICD-9: 250.80 02/12/2020 Active Learning disability ICD-10: F81.9 ICD-9: 315.2 02/12/2020 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 insulin ICD-10: Z79.4 02/11 [...] Anemia in chronic kidney disease ICD-10: D63.1 Resolved Hyperlipidemia, unspecified ICD-10: E78.5 02/12/2020 Resolved Medications Medication Codes Instructions Start Date Stop Date Status Fill Instructions Lyrica 100 mg capsule RxNorm: 750661 Take 1 Capsule(s) Oral QHS every night at bedtime 0 Inactive Lyrica 50 mg capsule RxNorm: 441983 Take 1 Capsule(s) Oral QAM every morning 0 Inactive ketoconazole 2 % shampoo RxNorm: 777981 Apply Topical two times a week with showers 0 Inactive cholecalciferol (vitamin D3) 50 mcg (2,000 unit) tablet RxNorm: 449136 Take 1 Tablet(s) Oral QD 0 021 Inactive Zetia 10 mg tablet RxNorm: 214389 Take 1 Tablet(s) Oral QD 0 021 Inactive Zetia 10 mg tablet RxNorm: 975211 Take 1 Tablet(s) Oral QD 0 020 Inactive Lyrica 50 mg capsule RxNorm: 058989 Take 1 Capsule(s) Oral QAM every morning 0 Inactive Lyrica 100 mg capsule RxNorm: 702918 Take 1 Capsule(s) Oral QHS every night at bedtime 0 Inactive Lyrica 100 mg capsule RxNorm: 505823 Take 1 Capsule(s) Oral QHS every night at bedtime 0 Inactive Lyrica 50 mg capsule RxNorm: 375975 Take 1 Capsule(s) Oral QAM every morning [...] Codes Status Date Referral: [facility] WPtel: [address], [address] [id number] [place] Referral Records Received 09/21/2022 Referral: [facility] WPtel: [address] [id number] [place] Referral Completed 05/28/2021 Referral: General Cardiology Referral Complet ed 01/03/2021 Referral: General Psychologist Referral Close d Instructions Comment Date Leonid is a Male being seen living at [facility]. Initial BPS visit 01/2020. PMHx including DMII, CAD w/ 5 stents, Depression, Seizure Disorder and CKD stage 3. He moved into [facility] in 12/2019 but after a hospitalization 05/2021 he moved to the [facility] to have closer nursing attention. Sister Jyotsna involved in his care cell# [phone] Guardian: Don (tapan met in person 09/01/21), now has Lexii (same group as don)Lab Schedule: * 10/06/2022
--- OUTSIDE RECORDS SUMMARY | 2020-04-08 19:00 | XMS_ITS | CCD ---
Author Name Sandra Mandujano CNP Address [address] [place] [address] Phone Organization [facility] Phone Care Team Providers Care Sld Inclusion Teacher Name Role Phone Tapan Shirley PA-C Primary Care Provider Unavailabl e Tapan Shirley PA-C Chronic Care Management Unavaila ble Summary Purpose DataExchange Insurance Providers Payer name Policy type / Coverage type Covered alliance party ID Effective Begin Date Effective End Date Medicare [place] Medicare Part B [id number] Unknown Unknown Medicaid [place] Medicare Part B [id number] Unknown Unknown Family History Family History data not found Allergies, Adverse Reactions, Alerts Substance Reaction Codes Entered Date Inactivated Date Status LISINOPRIL RxNorm: 37980 02/12/2020 No Inactive Da te Active Metformin HCl Unknown 02/12/2020 No Inactive Cristiano e Active Problems Condition Codes Effective Dates Condition St atus Candidiasis, intertrigo ICD-10: B37.2 ICD-9: 112.3 04/08/2020 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 ICD-9: 705.21 04/08/2020 Active CKD stage 3 due to type [...] 02/12/2020 Active Coronary artery disease invo lving [place] coronary artery of [place] heart, angina presence unspecified ICD-10: I25.10 ICD-9: 414.01 02/12/2020 Active Depression ICD-10: F32.9 ICD-9: 311 02/12/2020 Active Gout due to renal impairment ICD-10: M10 .30 ICD-9: 274.10 02/12/2020 Active Hyperlipidemia associated wi th type 2 diabetes mellitus ICD-10: E11.69 ICD-9: 250.80 02/12/2020 Active Learning disability ICD-10: F81.9 ICD-9: 315.2 02/12/2020 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 ICD-10: Z79.4 02/11 [...] Instructions Nystop 100,000 unit/gram topical powder RxNorm: 858036 Apply to abd folds, under breasts and L side of groin Topical BID x 14 days, then BID PRN 0 021 Inactive dx: yeast dermatitis Lyrica 100 mg capsule RxNorm: 722374 Take 1 Capsule(s) Oral QHS every night at bedtime 0 020 Inactive Lyrica 50 mg capsule RxNorm: 264820 Take 1 Capsule(s) Oral QAM every morning 0 020 Inactive ketoconazole 2 % shampoo RxNorm: 151933 Apply Topical two times a week with showers 0 Inactive cholecalciferol (vitamin D3) 50 mcg (2,000 unit) tablet RxNorm: 477617 Take 1 Tablet(s) Oral QD 0 Inactive Zetia 10 mg tablet RxNorm: 191197 Take 1 Tablet(s) Oral QD 0 021 Inactive Zetia 10 mg tablet RxNorm: 204227 Take 1 Tablet(s) Oral QD 0 Inactive Lyrica 50 mg capsule RxNorm: 732135 Take 1 Capsule(s) Oral QAM every morning 0 Inactive Lyrica 100 mg capsule RxNorm: 149760 Take 1 Capsule(s) Oral QHS every night at bedtime 0 Inactive Lyrica 100 mg capsule RxNorm: 118849 Take 1 Capsule(s) Oral QHS every night at bedtime 0 Inactive Lyrica 50 mg capsule RxNorm: 813767 Take 1 Capsule(s) Oral QAM every morning [...] Encounter Performer Location Location Address Codes Date (16089) DOMICIL/R-HOME VISIT EST PAT Diagnosis: Type 2 diabetes mellitus with diabetic polyneuropathy, with long-term current use of insulin[ICD10: E11.42] Diagnosis: 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] Diagnosis: Candidiasis, intertrigo[ICD10: B37.2] Diagnosis: Seizure disorder[ICD10: G40.909] [facility] [address] [place] [address] CPT-4: 01533 04/08/2020 Plan of Care Planned Activity Notes Codes Status Date Referral: [facility] WPtel: [address], [address] [id number] [place] Referral Records Received 09/21/2022 Referral: [facility] WPtel: [address] [id number] [place] Referral Completed 05/28/2021 Referral: General Cardiology Referral Complet ed 01/03/2021 Patient Education: Patient M edication Summary Completed 04/08/2020 Patient Education: Influenza Vaccine Completed 04/08/2020 Referral: General Psychologist Referral Close d Instructions Comment Date Leonid is a Male being seen living at The [facility]. Initial BPS visit 01/2020. PMHx including DMII, CAD w/ 5 stents, Depression, Seizure Disorder and CKD stage 3. He moved into [facility] in 12/2019 but after a hospitalization 05/2021 he moved to the [facility] to have closer nursing attention. Sister Jyotsna involved in his care cell# [phone] Guardian: Don (tapan met in person 09/01/21), now has Lexii (same group as don)Lab Schedule: * 10/06/2022 Hyperhidrosis of palms Ordering Carpe. Otherwise patient to purchase out of pocket. Can try general antiperspirant. Candidiasis, intertrigo Starting Nystatin. Epilepsy No seizure activity reported this month. No concerns voiced today. Continue current treatment regimen and monitor. Diabetes Continue insulin orders from Endo-sugars have been better. . 04/08/2020
--- OUTSIDE RECORDS SUMMARY | 2020-04-23 19:00 | XMS_ITS | CCD ---
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 Child Nutrition Assistant Name Role Phone Tapan Shirley PA-C Primary Care Provider Unavailabl e Tapan Shirley PA-C Chronic Care Management Unavaila ble Summary Purpose DataExchange Insurance Providers Payer name Policy type / Coverage type Covered libertarian ID Effective Begin Date Effective End Date Medicare [place] Medicare Part B [id number] Unknown Unknown Medicaid [place] Medicare Part B [id number] Unknown Unknown Family History Family History data not found Allergies, Adverse Reactions, Alerts Substance Reaction Codes Entered Date Inactivated Date Status LISINOPRIL RxNorm: 71905 02/12/2020 No Inactive Da te Active Metformin [...] 02/12/2020 Active Coronary artery disease invo lving [place] coronary artery of [place] heart, angina presence unspecified ICD-10: I25.10 ICD-9: 414.01 02/12/2020 Active Depression ICD-10: F32.9 ICD-9: 311 02/12/2020 Active Gout due to renal impairment ICD-10: M10 .30 ICD-9: 274.10 02/12/2020 Active Hyperlipidemia associated wi th type 2 diabetes mellitus ICD-10: E11.69 ICD-9: 250.80 02/12/2020 Active Learning disability ICD-10: F81.9 ICD-9: 315.2 02/12/2020 Active 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 ICD-10: Z79.4 02/11 [...] Inactive Nystop 100,000 unit/gram topical powder RxNorm: 668870 Apply to abd folds, under breasts and L side of groin Topical BID x 14 days, then BID PRN 0 021 Inactive dx: yeast dermatitis Lyrica 100 mg capsule RxNorm: 060785 Take 1 Capsule(s) Oral QHS every night at bedtime 0 020 Inactive Lyrica 50 mg capsule RxNorm: 247364 Take 1 Capsule(s) Oral QAM every morning 0 020 Inactive ketoconazole 2 % shampoo RxNorm: 657656 Apply Topical two times a week with showers 0 021 Inactive cholecalciferol (vitamin D3) 50 mcg (2,000 unit) tablet RxNorm: 876276 Take 1 Tablet(s) Oral QD 0 021 Inactive Zetia 10 mg tablet RxNorm: 535985 Take 1 Tablet(s) Oral QD 0 021 Inactive Zetia 10 mg tablet RxNorm: 305347 Take 1 Tablet(s) Oral QD 0 020 Inactive Lyrica 50 mg capsule RxNorm: 659192 Take 1 Capsule(s) Oral QAM every morning 0 020 Inactive Lyrica 100 mg capsule RxNorm: 678829 Take 1 Capsule(s) Oral QHS every night at bedtime 0 020 Inactive Lyrica 100 mg capsule RxNorm: 776358 Take 1 Capsule(s) Oral QHS every night at bedtime 0 020 Inactive Lyrica 50 mg capsule RxNorm: 292254 Take 1 Capsule(s) Oral QAM every morning 0 020 Inactive Medication Administered No Medication Administered data Immunizations Vaccine Codes Dose Date Status Influenza CVX: 141 02/13/2019 Hepatitis B CVX: 43 02/16/2014 Hepatitis B CVX: 43 10/12/2013 Hepatitis B CVX: 43 03/14/2013 Tdap CVX: 115 05/07/2009 Tetanus, Diptheria, Pertussis CVX: 115 2008 Reason For Visit No Reason For Visit data Plan of Care Planned Activity Notes Codes Status Date Referral: [facility] WPtel: [address], [address] [id number] [place] Referral Records Received 09/21/2022 Referral: [facility] WPtel: [address] [id number] [place] Referral Completed 05/28/2021 Referral: General Cardiology Referral Complet ed 01/03/2021 Referral: General Psychologist Referral Close d Instructions Comment Date Leonid is a Male being seen living at The [facility]. Initial BPS visit 01/2020. PMHx including DMII, CAD w/ 5 stents, Depression, Seizure Disorder and CKD stage 3. He moved into The [facility] in 12/2019 but after a hospitalization 05/2021 he moved to the [facility] to have closer nursing attention. Sister Jyotsna involved in his care cell# [phone] Guardian: Don (tapan met in person 09/01/21), now has Lexii (same group as don)Lab Schedule: * 10/06/2022
--- OUTSIDE RECORDS SUMMARY | 2020-05-13 19:00 | XMS_ITS | CCD ---
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 Linen Attendant Name Role Phone Tapan Shirley PA-C Primary Care Provider Unavailabl e Tapan Shirley PA-C Chronic Care Management Unavaila ble Summary Purpose DataExchange Insurance Providers Payer name Policy type / Coverage type Covered republican ID Effective Begin Date Effective End Date Medicare [place] Medicare Part B [id number] Unknown Unknown Medicaid [place] Medicare Part B [id number] Unknown Unknown Family History Family History data not found Allergies, Adverse Reactions, Alerts Substance Reaction Codes Entered Date Inactivated Date Status LISINOPRIL RxNorm: 15100 02/12/2020 No Inactive Da te Active Metformin [...] 02/12/2020 Active Coronary artery disease invo lving [place] coronary artery of [place] heart, angina presence unspecified ICD-10: I25.10 ICD-9: 414.01 02/12/2020 Active Depression ICD-10: F32.9 ICD-9: 311 02/12/2020 Active Gout due to renal impairment ICD-10: M10 .30 ICD-9: 274.10 02/12/2020 Active Hyperlipidemia associated wi th type 2 diabetes mellitus ICD-10: E11.69 ICD-9: 250.80 02/12/2020 Active Learning disability ICD-10: F81.9 ICD-9: 315.2 02/12/2020 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 02/11 [...] Fill Instructions Lyrica 50 mg capsule RxNorm: 848317 Take 1 Capsule(s) Oral QAM every morning 0 Inactive Lyrica 100 mg capsule RxNorm: 810971 Take 1 Capsule(s) Oral QHS every night [...] Inactive Nystop 100,000 unit/gram topical powder RxNorm: 086365 Apply to abd folds, under breasts and L side of groin Topical BID x 14 days, then BID PRN 0 Inactive dx: yeast dermatitis Lyrica 100 mg capsule RxNorm: 206347 Take 1 Capsule(s) Oral QHS every night at bedtime 0 Inactive Lyrica 50 mg capsule RxNorm: 306395 Take 1 Capsule(s) Oral QAM every morning 0 Inactive ketoconazole 2 % shampoo RxNorm: 945186 Apply Topical two times a week with showers 0 Inactive cholecalciferol (vitamin D3) 50 mcg (2,000 unit) tablet RxNorm: 355766 Take 1 Tablet(s) Oral QD 0 Inactive Zetia 10 mg tablet RxNorm: 461131 Take 1 Tablet(s) Oral QD 0 021 Inactive Zetia 10 mg tablet RxNorm: 301147 Take 1 Tablet(s) Oral QD 0 Inactive Lyrica 50 mg capsule RxNorm: 686487 Take 1 Capsule(s) Oral QAM every morning 0 Inactive Lyrica 100 mg capsule RxNorm: 674578 Take 1 Capsule(s) Oral QHS every night at bedtime 0 Inactive Lyrica 100 mg capsule RxNorm: 223769 Take 1 Capsule(s) Oral QHS every night at bedtime 0 Inactive Lyrica 50 mg capsule RxNorm: 732627 Take 1 Capsule(s) Oral QAM every morning [...] Codes Status Date Referral: [facility] WPtel: [address], [address] [id number] [place] Referral Records Received 09/21/2022 Referral: [facility] WPtel: [address] [id number] [place] Referral Completed 05/28/2021 Referral: General Cardiology Referral Complet ed 01/03/2021 Referral: General Psychologist Referral Close d Instructions Comment Date Leonid is a Male being seen living at The [facility]. Initial BPS visit 01/2020. PMHx including DMII, CAD w/ 5 stents, Depression, Seizure Disorder and CKD stage 3. He moved into [facility] in 12/2019 but after a hospitalization 05/2021 he moved to the [facility] to have closer nursing attention. Sister Jyotsna involved in his care cell# [phone] Guardian: Don (tapan met in person 09/01/21), now has Lexii (same group as don)Lab Schedule: * 10/06/2022
--- OUTSIDE RECORDS SUMMARY | 2020-05-19 19:00 | XMS_ITS | CCD ---
Author Name Sandra Mandujano CNP Address [address] [place] [address] Phone Organization [facility] Phone Care Team Providers Care Brake Repairer Hydraulic Name Role Phone Tapan Shirley PA-C Primary Care Provider Unavailabl e Tapan Shirley PA-C Chronic Care Management Unavaila ble Summary Purpose DataExchange Insurance Providers Payer name Policy type / Coverage type Covered alliance party ID Effective Begin Date Effective End Date Medicare [place] Medicare Part B [id number] Unknown Unknown Medicaid [place] Medicare Part B [id number] Unknown Unknown Family History Family History data not found Allergies, Adverse Reactions, Alerts Substance Reaction Codes Entered Date Inactivated Date Status LISINOPRIL RxNorm: 68553 02/12/2020 No Inactive Da te Active Metformin HCl Unknown 02/12/2020 No Inactive Cristiano e Active Problems Condition Codes Effective Dates Condition St atus Candidiasis, intertrigo ICD-10: B37.2 ICD-9: 112.3 05/15/2020 Active CKD stage 3 due to type 2 di abetes mellitus ICD-10: E11.22 ICD-9: 250.40 05/15/2020 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 ICD-9: 705.21 05/15/2020 Active Hyperlipidemia associated wi th type 2 diabetes mellitus ICD-10: E11.69 ICD-9: 250.80 05/15/2020 Active assisted (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 insulin ICD-10: Z79.4 05/15 Active Lower extremity edema ICD-10: R60.0 ICD-9: 782.3 05/15/2020 Active Type 2 diabetes mellitus wit h diabetic polyneuropathy, with long-term current use of insulin ICD-10: E11.42 ICD-9: 250.60 05/15/2020 Active Dandruff in adult ICD-10: L21.0 ICD-9: [...] 02/12/2020 Active Coronary artery disease invo lving [place] coronary artery of [place] heart, angina presence unspecified ICD-10: I25.10 ICD-9: 414.01 02/12/2020 Active Depression ICD-10: F32.9 ICD-9: 311 02/12/2020 Active Gout due to renal impairment ICD-10: M10 .30 ICD-9: 274.10 02/12/2020 Active Learning disability ICD-10: F81.9 ICD-9: 315.2 02/12/2020 Active Secondary hypertension ICD-10: I15.9 ICD-9: 405.99 02/12/2020 Active Seizure disorder ICD-10: G40.909 ICD-9: 345.90 02/12/2020 Active Vitamin D deficiency ICD-10: E55.9 ICD-9: 268.9 02/12/2020 Active Anemia in chronic kidney disease ICD-10: D63.1 Resolved Hyperlipidemia, unspecified ICD-10: E78.5 02/12/2020 Resolved Medications Medication Codes Instructions Start Date Stop Date Status Fill Instructions hydrocortisone 2.5 % topical cream RxNorm: 070207 Apply to bilateral groin creases Topical BID 0 Inactive clotrimazole 1 % topical cream RxNorm: 329256 Apply to bilateral groin areas Topical BID 0 Inactive Lyrica 50 mg capsule RxNorm: 320075 Take 1 Capsule(s) Oral QAM every morning 0 Inactive Lyrica 100 mg capsule RxNorm: 955796 Take 1 Capsule(s) Oral QHS every night [...] Inactive Nystop 100,000 unit/gram topical powder RxNorm: 730153 Apply to abd folds, under breasts and L side of groin Topical BID x 14 days, then BID PRN 0 021 Inactive dx: yeast dermatitis Lyrica 100 mg capsule RxNorm: 626675 Take 1 Capsule(s) Oral QHS every night at bedtime 0 Inactive Lyrica 50 mg capsule RxNorm: 580137 Take 1 Capsule(s) Oral QAM every morning 0 Inactive ketoconazole 2 % shampoo RxNorm: 355215 Apply Topical two times a week with showers 0 Inactive cholecalciferol (vitamin D3) 50 mcg (2,000 unit) tablet RxNorm: 888121 Take 1 Tablet(s) Oral QD 0 021 Inactive Zetia 10 mg tablet RxNorm: 404429 Take 1 Tablet(s) Oral QD 0 021 Inactive Zetia 10 mg tablet RxNorm: 477265 Take 1 Tablet(s) Oral QD 0 020 Inactive Lyrica 50 mg capsule RxNorm: 644427 Take 1 Capsule(s) Oral QAM every morning 0 020 Inactive Lyrica 100 mg capsule RxNorm: 161878 Take 1 Capsule(s) Oral QHS every night at bedtime 0 Inactive Lyrica 100 mg capsule RxNorm: 049492 Take 1 Capsule(s) Oral QHS every night at bedtime 0 020 Inactive Lyrica 50 mg capsule RxNorm: 538755 Take 1 Capsule(s) Oral QAM every morning [...] Encounter Performer Location Location Address Codes Date ([id number]) DOMICIL/R-HOME VISIT EST PAT Diagnosis: Candidiasis, intertrigo[ICD10: B37.2] Diagnosis: Type 2 diabetes mellitus with diabetic polyneuropathy, with long-term current use of insulin[ICD10: E11.42] Diagnosis: CKD stage 3 due to type 2 diabetes mellitus[ICD10: E11.22] Diagnosis: Hyperlipidemia associated with type 2 diabetes mellitus[ICD10: E11.69] Diagnosis: 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] Diagnosis: [facility] [employer] [facility] (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 insulin[ICD10: Z79.4] Diagnosis: Lower extremity edema[ICD10: R60.0] [facility] [address] [place] [address] CPT-4: 91719 05/15/2020 Plan of Care Planned Activity Notes Codes Status Date Referral: [facility] WPtel: [address] [id number] [place] Referral Records Received 09/21/2022 Referral: [facility] WPtel: [address] [id number] [place] Referral Completed 05/28/2021 Referral: General Cardiology Referral Complet ed 01/03/2021 Patient Education: Patient M edication Summary Completed 05/15/2020 Patient Education: Influenza Vaccine Completed 05/15/2020 Referral: General Psychologist Referral Close d Instructions Comment Date Leonid is a Male being seen living at [facility]. Initial BPS visit 01/2020. PMHx including DMII, CAD w/ 5 stents, Depression, Seizure Disorder and CKD stage 3. He moved into The [facility] in 12/2019 but after a hospitalization 05/2021 he moved to the [facility] to have closer nursing attention. Sister Jyotsna involved in his care cell# [phone] Guardian: Don (tapan met in person 09/01/21), now has Lexii (same group as don)Lab Schedule: * 10/06/2022 Candidiasis, intertrigo Current treatment working well. Edema Elevated feet, have good water intake. Diabetes Checking Cholesterol level to follow up after addition of Zetia. Hyperhidrosis of palms Recommend use of Carpe; needs to purchase OOP. [facility] (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 insulin Continue to follow Dr. Hurd' orders. . 05/15/2020
--- OUTSIDE RECORDS SUMMARY | 2020-06-10 19:00 | XMS_ITS | CCD ---
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 Water Pollution Specialist Name Role Phone Tapan Shirley PA-C Primary Care Provider Unavailabl e Tapan Shirley PA-C Chronic Care Management Unavaila ble Summary Purpose DataExchange Insurance Providers Payer name Policy type / Coverage type Covered green party ID Effective Begin Date Effective End Date Medicare [place] Medicare Part B [id number] Unknown Unknown Medicaid [place] Medicare Part B [id number] Unknown Unknown Family History Family History data not found Allergies, Adverse Reactions, Alerts Substance Reaction Codes Entered Date Inactivated Date Status LISINOPRIL RxNorm: 05577 02/12/2020 No Inactive Da te Active Metformin HCl Unknown 02/12/2020 No Inactive Cristiano e Active Problems Condition Codes Effective Dates Condition St atus Candidiasis, intertrigo ICD-10: B37.2 ICD-9: 112.3 06/10/2020 Active CKD stage 3 due to type 2 di abetes mellitus ICD-10: E11.22 ICD-9: 250.40 06/10/2020 Active Gout due to renal impairment ICD-10: M10 .30 ICD-9: 274.10 06/10/2020 Active Hyperlipidemia associated wi th type 2 diabetes mellitus ICD-10: E11.69 ICD-9: 250.80 06/10/2020 Active Learning disability ICD-10: F81.9 ICD-9: 315.2 06/10/2020 Active Type 2 diabetes mellitus wit h diabetic polyneuropathy, with long-term current use of insulin ICD-10: E11.42 ICD-9: 250.60 06/10/2020 Active Contact with and (suspected) exposure to other viral communicable diseases ICD-10: Z20.828 ICD-9: V01.79 05/23/2020 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 ICD-9: 705.21 05/15/2020 Active skilled nursing (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 insulin ICD-10: Z79.4 05/15 Active Lower extremity edema ICD-10: R60.0 ICD-9: 782.3 05/15/2020 Active Dandruff in adult ICD-10: L21.0 ICD-9: 690.18 03/11/2020 Active Diabetes Unknown 02/12/2020 Active Diabetes mellitus Type 2 Unknown 02/12/2020 Act annie Anemia due to stage 3b chron ic kidney disease ICD-10: N18.32 ICD-9: 285.21 02/12/2020 Active Chronic kidney disease, stag e 3 unspecified ICD-10: N18.30 02/12/2020 Active Coronary artery disease invo lving three affiliated coronary artery of three affiliated heart, angina presence unspecified ICD-10: I25.10 ICD-9: 414.01 02/12/2020 Active Depression ICD-10: F32.9 ICD-9: 311 02/12/2020 Active Secondary hypertension ICD-10: I15.9 ICD-9: 405.99 02/12/2020 Active Seizure disorder ICD-10: G40.909 ICD-9: 345.90 02/12/2020 Active Vitamin D deficiency ICD-10: E55.9 ICD-9: 268.9 02/12/2020 Active Anemia in chronic kidney disease ICD-10: D63.1 020 Resolved Hyperlipidemia, unspecified ICD-10: E78.5 02/12/2020 Resolved Medications Medication Codes Instructions Start Date Stop Date Status Fill Instructions Lyrica 100 mg capsule RxNorm: 655507 Take 1 Capsule(s) Oral QHS every night at bedtime 1 021 Inactive Lyrica 50 mg capsule RxNorm: 589583 Take 1 Capsule(s) Oral QAM every morning 1 021 Inactive hydrocortisone 2.5 % topical cream RxNorm: 369983 Apply to bilateral groin creases Topical BID 0 021 Inactive clotrimazole 1 % topical cream RxNorm: 136743 Apply to bilateral groin areas Topical BID 0 021 Inactive Lyrica 50 mg capsule RxNorm: 533492 Take 1 Capsule(s) Oral QAM every morning 0 020 Inactive Lyrica 100 mg capsule RxNorm: 881854 Take 1 Capsule(s) Oral QHS every night at bedtime 0 Inactive Blood Glucose Monitoring kit RxNorm: Use as directed QID and PRN 0 021 Inactive Lancets,Thin 28 gauge [...] Inactive Nystop 100,000 unit/gram topical powder RxNorm: 873397 Apply to abd folds, under breasts and L side of groin Topical BID x 14 days, then BID PRN 0 021 Inactive dx: yeast dermatitis Lyrica 100 mg capsule RxNorm: 946202 Take 1 Capsule(s) Oral QHS every night at bedtime 0 Inactive Lyrica 50 mg capsule RxNorm: 437319 Take 1 Capsule(s) Oral QAM every morning 0 Inactive ketoconazole 2 % shampoo RxNorm: 324786 Apply Topical two times a week with showers 0 021 Inactive cholecalciferol (vitamin D3) 50 mcg (2,000 unit) tablet RxNorm: 187571 Take 1 Tablet(s) Oral QD 0 021 Inactive Zetia 10 mg tablet RxNorm: 398530 Take 1 Tablet(s) Oral QD 0 021 Inactive Zetia 10 mg tablet RxNorm: 238734 Take 1 Tablet(s) Oral QD 0 020 Inactive Lyrica 50 mg capsule RxNorm: 459139 Take 1 Capsule(s) Oral QAM every morning 0 Inactive Lyrica 100 mg capsule RxNorm: 809129 Take 1 Capsule(s) Oral QHS every night at bedtime 0 Inactive Lyrica 100 mg capsule RxNorm: 002059 Take 1 Capsule(s) Oral QHS every night at bedtime 0 Inactive Lyrica 50 mg capsule RxNorm: 707838 Take 1 Capsule(s) Oral QAM every morning [...] Codes Status Date Referral: [facility] [address] [address] [id number] [place] Referral Records Received 09/21/2022 Referral: [facility] WPtel: [address] [id number] [place] Referral Completed 05/28/2021 Referral: General Cardiology Referral Complet ed 01/03/2021 Referral: General Psychologist Referral Close d Instructions Comment Date Leoind is a Male being seen living at [facility]. Initial BPS visit 01/2020. PMHx including DMII, CAD w/ 5 stents, Depression, Seizure Disorder and CKD stage 3. He moved into [facility] in 12/2019 but after a hospitalization 05/2021 he moved to the [facility] to have closer nursing attention. Sister Jyotsna involved in his care cell# [phone] Guardian: Don (tapan met in person 09/01/21), now has Lexii (same group as don)Lab Schedule: * 10/06/2022
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
--- OUTSIDE RECORDS SUMMARY | 2020-06-18 19:00 | XMS_ITS | CCD ---
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 Juvenile Justice Officer Name Role Phone Tapan Shirley PA-C Primary Care Provider Unavailabl e Tapan Shirley PA-C Chronic Care Management Unavaila ble Summary Purpose DataExchange Insurance Providers Payer name Policy type / Coverage type Covered green party ID Effective Begin Date Effective End Date Medicare [place] Medicare Part B [id number] Unknown Unknown Medicaid [place] Medicare Part B [id number] Unknown Unknown Family History Family History data not found Allergies, Adverse Reactions, Alerts Substance Reaction Codes Entered Date Inactivated Date Status LISINOPRIL RxNorm: 70666 02/12/2020 No Inactive Da te Active Metformin [...] palms ICD-10: L74.512 ICD-9: 705.21 05/15/2020 Active retirement (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 insulin ICD-10: Z79.4 05/15 [...] 02/12/2020 Active Coronary artery disease invo lving [place] coronary artery of [place] heart, angina presence unspecified ICD-10: I25.10 ICD-9: [...] Fill Instructions acetaminophen 500 mg tablet RxNorm: 672865 Take 1 Tablet(s) Oral TID as needed for headache 1 021 Inactive acetaminophen 500 mg tablet RxNorm: 540309 Take 1 Tablet(s) Oral TID as needed for headache 1 021 Inactive Lyrica 100 mg capsule RxNorm: 607823 Take 1 Capsule(s) Oral QHS every night at bedtime 1 021 Inactive Lyrica 50 mg capsule RxNorm: 608294 Take 1 Capsule(s) Oral QAM every morning 1 021 Inactive hydrocortisone 2.5 % topical cream RxNorm: 760296 Apply to bilateral groin creases Topical BID 0 021 Inactive clotrimazole 1 % topical cream RxNorm: 102206 Apply to bilateral groin areas Topical BID 0 021 Inactive Lyrica 50 mg capsule RxNorm: 380007 Take 1 Capsule(s) Oral QAM every morning 0 020 Inactive Lyrica 100 mg capsule RxNorm: 242670 Take 1 Capsule(s) Oral QHS every night [...] Inactive Nystop 100,000 unit/gram topical powder RxNorm: 669129 Apply to abd folds, under breasts and L side of groin Topical BID x 14 days, then BID PRN 0 021 Inactive dx: yeast dermatitis Lyrica 100 mg capsule RxNorm: 093106 Take 1 Capsule(s) Oral QHS every night at bedtime 0 020 Inactive Lyrica 50 mg capsule RxNorm: 662638 Take 1 Capsule(s) Oral QAM every morning 0 020 Inactive ketoconazole 2 % shampoo RxNorm: 354864 Apply Topical two times a week with showers 0 021 Inactive cholecalciferol (vitamin D3) 50 mcg (2,000 unit) tablet RxNorm: 455553 Take 1 Tablet(s) Oral QD 0 021 Inactive Zetia 10 mg tablet RxNorm: 728284 Take 1 Tablet(s) Oral QD 0 Inactive Zetia 10 mg tablet RxNorm: 039705 Take 1 Tablet(s) Oral QD 0 Inactive Lyrica 50 mg capsule RxNorm: 717948 Take 1 Capsule(s) Oral QAM every morning 0 Inactive Lyrica 100 mg capsule RxNorm: 502539 Take 1 Capsule(s) Oral QHS every night at bedtime 0 Inactive Lyrica 100 mg capsule RxNorm: 421651 Take 1 Capsule(s) Oral QHS every night at bedtime 0 Inactive Lyrica 50 mg capsule RxNorm: 255193 Take 1 Capsule(s) Oral QAM every morning [...] Codes Status Date Referral: [facility] WPtel: [address], [address] [id number] [place] Referral Records Received 09/21/2022 Referral: [facility] WPtel: [address] [id number] [place] Referral Completed 05/28/2021 Referral: General Cardiology Referral Complet ed 01/03/2021 Referral: General Psychologist Referral Close d Instructions Comment Date Leonid is a Male being seen living at [facility]. Initial BPS visit 01/2020. PMHx including DMII, CAD w/ 5 stents, Depression, Seizure Disorder and CKD stage 3. He moved into [facility] in 12/2019 but after a hospitalization 05/2021 he moved to the [facility] to have closer nursing attention. Sister Jyotsna involved in his care cell# [phone] Guardian: Don (tapan met in person 09/01/21), now has Lexii (same group as don)Lab Schedule: * 10/06/2022
--- OUTSIDE RECORDS SUMMARY | 2020-06-20 19:00 | XMS_ITS | CCD ---
Author Name Sandra Mandujano CNP Address [address] [place] [address] Phone Organization [facility] Phone Care Team Providers Care Debarker Operator Name Role Phone Tapan Shirley PA-C Primary Care Provider Unavailabl e Tapan Shirley PA-C Chronic Care Management Unavaila ble Summary Purpose DataExchange Insurance Providers Payer name Policy type / Coverage type Covered democrat ID Effective Begin Date Effective End Date Medicare [place] Medicare Part B [id number] Unknown Unknown Medicaid [place] Medicare Part B [id number] Unknown Unknown Family History Family History data not found Allergies, Adverse Reactions, Alerts Substance Reaction Codes Entered Date Inactivated Date Status LISINOPRIL RxNorm: 85235 02/12/2020 No Inactive Da te Active Metformin [...] palms ICD-10: L74.512 ICD-9: 705.21 05/15/2020 Active terminal makeup operator (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 insulin ICD-10: Z79.4 05/15 [...] 02/12/2020 Active Coronary artery disease invo lving [place] coronary artery of [place] heart, angina presence unspecified ICD-10: I25.10 ICD-9: [...] Fill Instructions acetaminophen 500 mg tablet RxNorm: 292754 Take 1 Tablet(s) Oral TID as needed for headache 1 021 Inactive Lyrica 100 mg capsule RxNorm: 409296 Take 1 Capsule(s) Oral QHS every night at bedtime 1 021 Inactive Lyrica 50 mg capsule RxNorm: 914610 Take 1 Capsule(s) Oral QAM every morning 1 021 Inactive hydrocortisone 2.5 % topical cream RxNorm: 292487 Apply to bilateral groin creases Topical BID 0 021 Inactive clotrimazole 1 % topical cream RxNorm: 296115 Apply to bilateral groin areas Topical BID 0 021 Inactive Lyrica 50 mg capsule RxNorm: 912392 Take 1 Capsule(s) Oral QAM every morning 0 020 Inactive Lyrica 100 mg capsule RxNorm: 995898 Take 1 Capsule(s) Oral QHS every night [...] Inactive Nystop 100,000 unit/gram topical powder RxNorm: 856607 Apply to abd folds, under breasts and L side of groin Topical BID x 14 days, then BID PRN 0 021 Inactive dx: yeast dermatitis Lyrica 100 mg capsule RxNorm: 393700 Take 1 Capsule(s) Oral QHS every night at bedtime 0 020 Inactive Lyrica 50 mg capsule RxNorm: 415922 Take 1 Capsule(s) Oral QAM every morning 0 020 Inactive ketoconazole 2 % shampoo RxNorm: 229347 Apply Topical two times a week with showers 0 021 Inactive cholecalciferol (vitamin D3) 50 mcg (2,000 unit) tablet RxNorm: 303982 Take 1 Tablet(s) Oral QD 0 Inactive Zetia 10 mg tablet RxNorm: 754798 Take 1 Tablet(s) Oral QD 0 Inactive Zetia 10 mg tablet RxNorm: 111440 Take 1 Tablet(s) Oral QD 0 Inactive Lyrica 50 mg capsule RxNorm: 983334 Take 1 Capsule(s) Oral QAM every morning 0 Inactive Lyrica 100 mg capsule RxNorm: 563072 Take 1 Capsule(s) Oral QHS every night at bedtime 0 Inactive Lyrica 100 mg capsule RxNorm: 920764 Take 1 Capsule(s) Oral QHS every night at bedtime 0 Inactive Lyrica 50 mg capsule RxNorm: 018506 Take 1 Capsule(s) Oral QAM every morning [...] [facility] WPtel: [address], [address] [id number] [place] Referral Records Received 09/21/2022 Referral: [facility] WPtel: [address] [id number] [place] Referral Completed 05/28/2021 Referral: General Cardiology Referral Completed 01/03/2021 Patient Education: Patient Medication Summary Completed 06/18/2020 Care Plan: BPS Referral Order SNOMED-CT : [id number] Pending 06/18/2020 Referral: General Psychologist Referral Closed Instructions Comment Date Leonid is a Male being seen living at The [facility]. Initial BPS visit 01/2020. PMHx including DMII, CAD w/ 5 stents, Depression, Seizure Disorder and CKD stage 3. He moved into The [facility] in 12/2019 but after a hospitalization 05/2021 he moved to [facility] to have closer nursing attention. Sister Jyotsna involved in his care cell# [phone] Guardian: Don (tapan met in person 09/01/21), now has Lexii (same group as don)Lab Schedule: * 10/06/2022
--- OUTSIDE RECORDS SUMMARY | 2020-07-08 19:00 | XMS_ITS | CCD ---
Author Name Akhil Guerrero MD Address [address] [facility] [address] [place] [address] Phone Organization [facility] Phone Care Team Providers Care Airset Caster Name Role Phone Rosalina Shirley PA-C Primary Care Provider Unavailabl e Rosalina Shirley PA-C Chronic Care Management Unavaila ble Summary Purpose DataExchange Insurance Providers Payer name Policy type / Coverage type Covered libertarian ID Effective Begin Date Effective End Date Medicare [place] Medicare Part B [id number] Unknown Unknown Medicaid [place] Medicare Part B [id number] Unknown Unknown Family History Family History data not found Allergies, Adverse Reactions, Alerts Substance Reaction Codes Entered Date Inactivated Date Status LISINOPRIL RxNorm: 38120 02/12/2020 No Inactive Da te Active Metformin HCl Unknown 02/12/2020 No Inactive Cristiano e Active Problems Condition Codes Effective Dates Condition St atus Contact with and (suspected) exposure to other viral communicable diseases ICD-10: Z20.828 ICD-9: V01.79 05/23/2020 Active Candidiasis, intertrigo ICD-10: B37.2 ICD-9: 112.3 05/15/2020 Active CKD stage 3 due to type 2 di abetes mellitus ICD-10: E11.22 ICD-9: 250.40 05/15/2020 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 ICD-9: 705.21 05/15/2020 Active Hyperlipidemia associated wi th type 2 diabetes mellitus ICD-10: E11.69 ICD-9: 250.80 05/15/2020 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: 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 05/15 [...] 02/12/2020 Active Coronary artery disease invo lving [place] coronary artery of [place] heart, angina presence unspecified ICD-10: I25.10 ICD-9: [...] Instructions clotrimazole 1 % topical cream RxNorm: 949161 Apply to bilateral groin areas Topical BID 0 Inactive hydrocortisone 2.5 % topical cream RxNorm: 539909 Apply to bilateral groin creases Topical BID 0 021 Inactive Lyrica 50 mg capsule RxNorm: 006524 Take 1 Capsule(s) Oral QAM every morning 0 Inactive Lyrica 100 mg capsule RxNorm: 073037 Take 1 Capsule(s) Oral QHS every night [...] Inactive Nystop 100,000 unit/gram topical powder RxNorm: 187851 Apply to abd folds, under breasts and L side of groin Topical BID x 14 days, then BID PRN 0 021 Inactive dx: yeast dermatitis Lyrica 100 mg capsule RxNorm: 550564 Take 1 Capsule(s) Oral QHS every night at bedtime 0 Inactive Lyrica 50 mg capsule RxNorm: 396955 Take 1 Capsule(s) Oral QAM every morning 0 Inactive ketoconazole 2 % shampoo RxNorm: 003742 Apply Topical two times a week with showers 0 021 Inactive cholecalciferol (vitamin D3) 50 mcg (2,000 unit) tablet RxNorm: 252840 Take 1 Tablet(s) Oral QD 0 021 Inactive Zetia 10 mg tablet RxNorm: 396464 Take 1 Tablet(s) Oral QD 0 021 Inactive Zetia 10 mg tablet RxNorm: 729988 Take 1 Tablet(s) Oral QD 0 020 Inactive Lyrica 50 mg capsule RxNorm: 881645 Take 1 Capsule(s) Oral QAM every morning 0 020 Inactive Lyrica 100 mg capsule RxNorm: 690928 Take 1 Capsule(s) Oral QHS every night at bedtime 0 Inactive Lyrica 100 mg capsule RxNorm: 650967 Take 1 Capsule(s) Oral QHS every night at bedtime 0 Inactive Lyrica 50 mg capsule RxNorm: 328339 Take 1 Capsule(s) Oral QAM every morning [...] to other viral communicable diseases[ICD10: Z20.828] Akhil GarciaAurora Medical [facility] in [facility] [address] [place] [address] CPT-4: 01741 05/23/2020 Plan of Care Planned Activity Notes Codes Status Date Referral: [facility] WPtel: [address] , [address] [id number] [place] Referral Records Received 09/21/2022 Referral: [facility] WPtel: [address] [id number] [place] Referral Completed 05/28/2021 Referral: General Cardiology Referral Complet ed 01/03/2021 Referral: General Psychologist Referral Close d Instructions Comment Date Leonid is a Male being seen living at [facility]. Initial BPS visit 01/2020. PMHx including DMII, CAD w/ 5 stents, Depression, Seizure Disorder and CKD stage 3. He moved into [facility] in 12/2019 but after a hospitalization 05/2021 he moved to the [facility] to have closer nursing attention. Sister Jyotsna involved in his care cell# [phone] Guardian: Don (rosalina met in person 09/01/21), now has Lexii (same group as don)Lab Schedule: * 10/06/2022
--- OUTSIDE RECORDS SUMMARY | 2020-07-08 19:00 | XMS_ITS | CCD ---
Author Name Sandra Mandujano CNP Address [address] [facility] [address] [place] [address] Phone Organization [facility] Phone Care Team Providers Care Child Welfare Manager Name Role Phone Tapan Shirley PA-C Primary Care Provider Unavailabl e Tapan Shirley PA-C Chronic Care Management Unavaila ble Summary Purpose DataExchange Insurance Providers Payer name Policy type / Coverage type Covered libertarian ID Effective Begin Date Effective End Date Medicare [place] Medicare Part B [id number] Unknown Unknown Medicaid [place] Medicare Part B [id number] Unknown Unknown Family History Family History data not found Allergies, Adverse Reactions, Alerts Substance Reaction Codes Entered Date Inactivated Date Status LISINOPRIL RxNorm: 31315 02/12/2020 No Inactive Da te Active Metformin HCl Unknown 02/12/2020 No Inactive Cristiano e Active Problems Condition Codes Effective Dates Condition St atus Anemia due to stage 3b chron ic kidney disease ICD-10: N18.32 ICD-9: 285.21 07/08/2020 Active Chronic kidney disease, stag e 3 unspecified ICD-10: N18.30 07/08/2020 Active CKD stage 3 due to type 2 di abetes mellitus ICD-10: E11.22 ICD-9: 250.40 07/08/2020 Active Dandruff in adult ICD-10: L21.0 ICD-9: 690.18 07/08/2020 Active Depression ICD-10: F32.9 ICD-9: 311 07/08/2020 Active Hyperlipidemia associated wi th type 2 diabetes mellitus ICD-10: E11.69 ICD-9: 250.80 07/08/2020 Active Skin tag ICD-10: L91.8 ICD-9: 701.9 07/08/2020 Active Stage 2 chronic kidney disease ICD-10: N 18.2 ICD-9: 585.2 07/08/2020 Active Type 2 diabetes mellitus wit h diabetic polyneuropathy, with long-term current use of insulin ICD-10: E11.42 ICD-9: 250.60 07/08/2020 Active Contact with and (suspected) exposure to other viral communicable diseases ICD-10: Z20.828 ICD-9: V01.79 07/08/2020 Resolved Contact with and (suspected) exposure to covid-19 ICD-10: Z20.822 ICD-9: V01.79 06/20/2020 Active Candidiasis, intertrigo ICD-10: B37.2 ICD-9: 112.3 06/10/2020 Active Gout due to renal impairment ICD-10: M10 .30 ICD-9: 274.10 06/10/2020 Active Learning disability ICD-10: F81.9 ICD-9: 315.2 06/10/2020 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 ICD-9: 705.21 05/15/2020 Active 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 ICD-10: Z79.4 05/15 Active Lower extremity edema ICD-10: R60.0 ICD-9: 782.3 05/15/2020 Active Diabetes Unknown 02/12/2020 Active Diabetes mellitus Type 2 Unknown 02/12/2020 Act annie Coronary artery disease invo lving blackfeet coronary artery of blackfeet heart, angina presence unspecified ICD-10: I25.10 ICD-9: 414.01 02/12/2020 Active Secondary hypertension ICD-10: I15.9 ICD-9: 405.99 02/12/2020 Active Seizure disorder ICD-10: G40.909 ICD-9: 345.90 02/12/2020 Active Vitamin D deficiency ICD-10: E55.9 ICD-9: 268.9 02/12/2020 Active Anemia in chronic kidney disease ICD-10: D63.1 020 Resolved Hyperlipidemia, unspecified ICD-10: E78.5 02/12/2020 Resolved Medications Medication Codes Instructions Start Date Stop Date Status Fill Instructions pantoprazole 40 mg tablet,delayed release RxNorm: 911860 Take 1 Tablet(s) Oral QAM every morning 07/08/19 21 022 Inactive clopidogrel 75 mg tablet RxNorm: 779059 Take 1 Tablet(s) Oral QD 07/08/19 021 Inactive Blood Glucose Test strips RxNorm: Use 1 Test Strip QID at PRN 07/08/19 21 Inactive E11.42 senna 8.6 mg tablet RxNorm: 486613 Take 1 Tablet(s) Oral QD 07/08/19 21 022 Inactive Novolog Flexpen U-100 Insulin aspart 100 unit/mL (3 mL) subcutaneous RxNorm: 2190957 Administer per sliding scale Milliliter(s) Subcutaneous TID 151-200: 10 u; 201-250: 20 u; 251-300: 30 u; 301-350: 40 u; 351-400: 50 u. 07/08/19 022 Inactive lisinopril 5 mg tablet RxNorm: 938849 Take 1 Tablet(s) Oral QD 07/08/19 021 Inactive Novolog Flexpen U-100 Insulin aspart 100 unit/mL (3 mL) subcutaneous RxNorm: 5034273 Inject 85 Unit(s) Subcutaneous TID 07/08/19 022 Inactive pravastatin 80 mg tablet RxNorm: 803753 Take 1 Tablet(s) Oral QHS every night at bedtime 07/08/19 022 Inactive clotrimazole 1 % topical cream RxNorm: 413280 Apply to bilateral groin areas Topical BID 07/08/19 Inactive metoprolol succinate ER 200 mg tablet,extended release 24 hr RxNorm: 407246 Take 1 Tablet(s) Oral QD 07/08/19 Inactive Vitamin D3 25 mcg (1,000 unit) tablet RxNorm: 059678 Take 1 Tablet(s) Oral QD 07/08/19 021 Inactive carbamazepine 200 mg tablet RxNorm: 324873 Take 1 Tablet(s) Oral BID 07/08/19 022 Inactive Levemir FlexTouch U-100 Insulin 100 unit/mL (3 mL) subcutaneous pen RxNorm: 152902 Inject 140 Unit(s) Subcutaneous BID 07/08/19 21 021 Inactive torsemide 20 mg tablet RxNorm: 804798 Take 1 Tablet(s) Oral QD 07/08/19 023 Inactive venlafaxine 75 mg tablet RxNorm: 643918 Take 1 Tablet(s) Oral QD 07/08/19 21 021 Inactive isosorbide dinitrate 30 mg tablet RxNorm: 334560 Take 1 Tablet(s) Oral QD 07/08/19 21 021 Inactive acetaminophen 500 mg tablet RxNorm: 209157 Take 1 Tablet(s) Oral TID as needed for headache 06/18/19 21 021 Inactive acetaminophen 500 mg tablet RxNorm: 022641 Take 1 Tablet(s) Oral TID as needed for headache 06/18/19 21 021 Inactive Lyrica 100 mg capsule RxNorm: 009490 Take 1 Capsule(s) Oral QHS every night at bedtime 06/11/19 21 021 Inactive Lyrica 50 mg capsule RxNorm: 408158 Take 1 Capsule(s) Oral QAM every morning 06/10/19 21 021 Inactive hydrocortisone 2.5 % topical cream RxNorm: 889881 Apply to bilateral groin creases Topical BID 05/15/20 20 021 Inactive clotrimazole 1 % topical cream RxNorm: 760879 Apply to bilateral groin areas Topical BID 05/15/20 20 021 Inactive Lyrica 50 mg capsule RxNorm: 171238 Take 1 Capsule(s) Oral QAM every morning 05/14/20 20 020 Inactive Lyrica 100 mg capsule RxNorm: 112675 Take 1 Capsule(s) Oral QHS every night at bedtime 05/14/20 20 020 Inactive Blood Glucose Monitoring kit RxNorm: Use as directed QID and PRN 04/24/20 20 021 Inactive Lancets,Thin 28 gauge RxNorm: Use 1 as directed QID and PRN 04/24/20 20 020 Inactive Blood Glucose Test strips RxNorm: Use 1 Test Strip QID at PRN 04/24/20 20 021 Inactive Blood Glucose Test strips RxNorm: Use 1 Test Strip QID at PRN 04/23/20 20 12/09/2 020 Inactive Lancets,Thin 28 gauge RxNorm: Use 1 as directed QID and PRN 04/23/20 20 Inactive Blood Glucose Monitoring kit RxNorm: Use as directed QID and PRN 04/23/20 20 Inactive Nystop 100,000 unit/gram topical powder RxNorm: 386524 Apply to abd folds, under breasts and L side of groin Topical BID x 14 days, then BID PRN 04/08/20 20 Inactive dx: yeast dermatitis Lyrica 100 mg capsule RxNorm: 540858 Take 1 Capsule(s) Oral QHS every night at bedtime 03/13/20 Inactive Lyrica 50 mg capsule RxNorm: 290323 Take 1 Capsule(s) Oral QAM every morning 03/13/20 Inactive ketoconazole 2 % shampoo RxNorm: 028293 Apply Topical two times a week with showers 03/11/20 20 Inactive cholecalciferol (vitamin D3) 50 mcg (2,000 unit) tablet RxNorm: 321307 Take 1 Tablet(s) Oral QD 03/11/20 20 Inactive Zetia 10 mg tablet RxNorm: 070039 Take 1 Tablet(s) Oral QD 03/07/20 20 021 Inactive Zetia 10 mg tablet RxNorm: 654313 Take 1 Tablet(s) Oral QD 03/07/20 20 Inactive Lyrica 50 mg capsule RxNorm: 541404 Take 1 Capsule(s) Oral QAM every morning 02/15/20 20 Inactive Lyrica 100 mg capsule RxNorm: 798406 Take 1 Capsule(s) Oral QHS every night at bedtime 02/15/20 Inactive Lyrica 100 mg capsule RxNorm: 225787 Take 1 Capsule(s) Oral QHS every night at bedtime 02/15/20 20 Inactive Lyrica 50 mg capsule RxNorm: 107641 Take 1 Capsule(s) Oral QAM every morning 02/15/20 20 10/01/2 020 Inactive Medication Administered No Medication Administered [...] Encounter Performer Location Location Address Codes Date (54562) DOMICIL VISIT EST PAT Diagnosis: Chronic kidney disease, stage 3 unspecified[ICD10: [...] Dandruff in adult[ICD10: L21.0] Diagnosis: Skin tag[ICD10: L91.8] Sandra Mandujano [facility] [address] [place] [address] CPT-4: 86717 07/08/2020 Plan of Care Planned Activity Notes Codes Status Date Referral: [facility] WPtel: [address], [address] [id number] Referral Records Received 09/21/2022 Referral: [facility] WPtel: [address] [id number] [place] Referral Completed 05/28/2021 Referral: General Cardiology Referral Complet ed 01/03/2021 Patient Education: Patient M edication Summary Completed 07/08/2020 Patient Education: Alzheimer''s Disease Completed 07/08/2020 Patient Education: Influenza Vaccine Completed 07/08/2020 Patient Education: Dementia Complete d 07/08/2020 Referral: General Psychologist Referral Close d Instructions Comment Date Leonid is a Male being seen living at [facility]. Initial BPS visit 01/2020. PMHx including DMII, CAD w/ 5 stents, Depression, Seizure Disorder and CKD stage 3. He moved into [facility] in 12/2019 but after a hospitalization 05/2021 he moved to the [facility] to have closer nursing attention. Sister Jyotsna involved in his care cell# [phone] Guardian: Don (tapan met in person 09/01/21), now has Lexii (same group as don)Lab Schedule: * 10/06/2022 Diabetes Sugars a bit high with many readings in 200s and some in the 300s. Recommend he follow up with Dr. Watson. Chronic Kidney Disease Continue to monitor. Dermatitis No concerns voiced today. Continue current treatment regimen and monitor. Depression Mood stable. Skin tag I didn't have Lidocaine with me today, so will remove when I see him next month. . 07/08/2020
--- OUTSIDE RECORDS SUMMARY | 2020-08-01 19:00 | XMS_ITS | CCD ---
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 Name Role Phone Tapan Shirley PA-C Primary Care Provider Unavailabl e Tapan Shirley PA-C Chronic Care Management Unavaila ble Summary Purpose DataExchange Insurance Providers Payer name Policy type / Coverage type Covered alliance party ID Effective Begin Date Effective End Date Medicare [place] Medicare Part B [id number] Unknown Unknown Medicaid [place] Medicare Part B [id number] Unknown Unknown Family History Family History data not found Allergies, Adverse Reactions, Alerts Substance Reaction Codes Entered Date Inactivated Date Status LISINOPRIL RxNorm: 29035 02/12/2020 No Inactive Da te Active Metformin HCl Unknown 02/12/2020 No Inactive Cristiano e Active Problems Condition Codes Effective Dates Condition St atus Candidiasis, intertrigo ICD-10: B37.2 ICD-9: 112.3 07/30/2020 Active Cellulitis ICD-10: L03.90 ICD-9: 682.9 07/30/2020 Active Coronary artery disease invo lving jamul coronary artery of jamul heart, angina presence unspecified ICD-10: I25.10 ICD-9: 414.01 07/30/2020 Active Secondary hypertension ICD-10: I15.9 ICD-9: 405.99 07/30/2020 Active Skin tag ICD-10: L91.8 ICD-9: 701.9 07/30/2020 Active Anemia due to stage 3b chron ic [...] mellitus ICD-10: E11.69 ICD-9: 250.80 07/08/2020 Active Stage 2 chronic kidney disease ICD-10: N 18.2 ICD-9: 585.2 07/08/2020 Active Type 2 diabetes mellitus wit h diabetic polyneuropathy, with long-term current use of insulin ICD-10: E11.42 ICD-9: 250.60 07/08/2020 Active Contact with and (suspected) exposure to other viral communicable diseases ICD-10: Z20.828 ICD-9: V01.79 07/08/2020 Resolved Contact with and (suspected) exposure to covid-19 ICD-10: Z20.822 ICD-9: V01.79 06/20/2020 Active Gout due to renal impairment ICD-10: M10 .30 ICD-9: 274.10 06/10/2020 Active Learning disability ICD-10: F81.9 ICD-9: 315.2 06/10/2020 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 ICD-9: 705.21 05/15/2020 Active director long term care (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 insulin ICD-10: Z79.4 05/15 Active Lower extremity edema ICD-10: R60.0 ICD-9: 782.3 05/15/2020 Active Diabetes Unknown 02/12/2020 Active Diabetes mellitus Type 2 Unknown 02/12/2020 Act annie Seizure disorder ICD-10: G40.909 ICD-9: 345.90 02/12/2020 Active Vitamin D deficiency ICD-10: E55.9 ICD-9: 268.9 02/12/2020 Active Anemia in chronic kidney disease ICD-10: D63.1 020 Resolved Hyperlipidemia, unspecified ICD-10: E78.5 02/12/2020 Resolved Medications Medication Codes Instructions Start Date Stop Date Status Fill Instructions amlodipine 5 mg tablet RxNorm: 020996 Take 1 Tablet(s) Oral QD 07/31/19 21 021 Inactive cephalexin 500 mg tablet RxNorm: 364261 Take 1 Tablet(s) Oral BID BID - Twice Daily 07/31/19 21 Inactive Start 08/01/20 pantoprazole 40 mg tablet,delayed release RxNorm: 702209 Take 1 Tablet(s) Oral QAM every morning 07/08/19 022 Inactive clopidogrel 75 mg tablet RxNorm: 941507 Take 1 Tablet(s) Oral QD 07/08/19 021 Inactive senna 8.6 mg tablet RxNorm: 530380 Take 1 Tablet(s) Oral QD 07/08/19 022 Inactive Novolog Flexpen U-100 Insulin aspart 100 unit/mL (3 mL) subcutaneous RxNorm: 1342597 Administer per sliding scale Milliliter(s) Subcutaneous TID 151-200: 10 u; 201-250: 20 u; 251-300: 30 u; 301-350: 40 u; 351-400: 50 u. 07/08/19 022 Inactive lisinopril 5 mg tablet RxNorm: 999889 Take 1 Tablet(s) Oral QD 07/08/19 021 Inactive Novolog Flexpen U-100 Insulin aspart 100 unit/mL (3 mL) subcutaneous RxNorm: 6526787 Inject 85 Unit(s) Subcutaneous TID 07/08/19 022 Inactive pravastatin 80 mg tablet RxNorm: 249702 Take 1 Tablet(s) Oral QHS every night at bedtime 07/08/19 022 Inactive clotrimazole 1 % topical cream RxNorm: 227853 Apply to bilateral groin areas Topical BID 07/08/19 022 Inactive metoprolol succinate ER 200 mg tablet,extended release 24 hr RxNorm: 461789 Take 1 Tablet(s) Oral QD 07/08/19 Inactive Vitamin D3 25 mcg (1,000 unit) tablet RxNorm: 085010 Take 1 Tablet(s) Oral QD 07/08/19 21 021 Inactive carbamazepine 200 mg tablet RxNorm: 310841 Take 1 Tablet(s) Oral BID 07/08/19 21 02/16/2 022 Inactive Levemir FlexTouch U-100 Insulin 100 unit/mL (3 mL) subcutaneous pen RxNorm: 712929 Inject 140 Unit(s) Subcutaneous BID 07/08/19 21 021 Inactive torsemide 20 mg tablet RxNorm: 594344 Take 1 Tablet(s) Oral QD 07/08/19 21 023 Inactive venlafaxine 75 mg tablet RxNorm: 433045 Take 1 Tablet(s) Oral QD 07/08/19 021 Inactive Blood Glucose Test strips RxNorm: Use 1 Test Strip QID at PRN 07/08/19 Inactive E11.42 isosorbide dinitrate 30 mg tablet RxNorm: 517760 Take 1 Tablet(s) Oral QD 07/08/19 021 Inactive acetaminophen 500 mg tablet RxNorm: 793996 Take 1 Tablet(s) Oral TID as needed for headache 06/18/19 Inactive acetaminophen 500 mg tablet RxNorm: 332237 Take 1 Tablet(s) Oral TID as needed for headache 06/18/19 021 Inactive Lyrica 100 mg capsule RxNorm: 842182 Take 1 Capsule(s) Oral QHS every night at bedtime 06/11/19 021 Inactive Lyrica 50 mg capsule RxNorm: 488289 Take 1 Capsule(s) Oral QAM every morning 06/10/19 021 Inactive hydrocortisone 2.5 % topical cream RxNorm: 658491 Apply to bilateral groin creases Topical BID 05/15/20 20 021 Inactive clotrimazole 1 % topical cream RxNorm: 480135 Apply to bilateral groin areas Topical BID 05/15/20 20 021 Inactive Lyrica 50 mg capsule RxNorm: 216716 Take 1 Capsule(s) Oral QAM every morning 05/14/20 20 Inactive Lyrica 100 mg capsule RxNorm: 030665 Take 1 Capsule(s) Oral QHS every night at bedtime 05/14/20 20 Inactive Blood Glucose Monitoring kit RxNorm: Use as directed QID and PRN 04/24/20 021 Inactive Lancets,Thin 28 gauge RxNorm: Use [...] Inactive Nystop 100,000 unit/gram topical powder RxNorm: 983199 Apply to abd folds, under breasts and L side of groin Topical BID x 14 days, then BID PRN 04/08/20 20 021 Inactive dx: yeast dermatitis Lyrica 100 mg capsule RxNorm: 994065 Take 1 Capsule(s) Oral QHS every night at bedtime 03/13/20 20 Inactive Lyrica 50 mg capsule RxNorm: 131190 Take 1 Capsule(s) Oral QAM every morning 03/13/20 20 Inactive ketoconazole 2 % shampoo RxNorm: 136671 Apply Topical two times a week with showers 03/11/20 20 Inactive cholecalciferol (vitamin D3) 50 mcg (2,000 unit) tablet RxNorm: 007750 Take 1 Tablet(s) Oral QD 03/11/20 20 021 Inactive Zetia 10 mg tablet RxNorm: 632553 Take 1 Tablet(s) Oral QD 03/07/20 20 021 Inactive Zetia 10 mg tablet RxNorm: 252615 Take 1 Tablet(s) Oral QD 03/07/20 20 Inactive Lyrica 50 mg capsule RxNorm: 467253 Take 1 Capsule(s) Oral QAM every morning 02/15/20 20 Inactive Lyrica 100 mg capsule RxNorm: 346727 Take 1 Capsule(s) Oral QHS every night at bedtime 02/15/20 20 Inactive Lyrica 100 mg capsule RxNorm: 259803 Take 1 Capsule(s) Oral QHS every night at bedtime 02/15/20 Inactive Lyrica 50 mg capsule RxNorm: 339414 Take 1 Capsule(s) Oral QAM every morning [...] Encounter Performer Location Location Address Codes Date (34633) DOMICIL VISIT EST PAT Diagnosis: Coronary artery disease involving jamul coronary artery of jamul heart, angina presence unspecified[ICD10: I25.10] Diagnosis: Cutaneous abscess of unspecified foot[ICD10: L02.619] Diagnosis: Cellulitis and abscess of foot[ICD10: L03.119] Diagnosis: Cellulitis[ICD10: L03.90] Diagnosis: Candidiasis, intertrigo[ICD10: B37.2] Diagnosis: Skin tag[ICD10: L91.8] Diagnosis: Secondary hypertension[ICD10 : I15.9] Sandra Go [facility] [address] [place] [address] CPT-4: 55173 07/30/2020 Plan of Care Planned Activity Notes Codes Status Date Referral: [facility] [place] [facility] WPtel: [address], [address] [id number] [place] Referral Records Received 09/21/2022 Referral: [facility] WPtel: [address] [id number] [place] Referral Completed 05/28/2021 Referral: General Cardiology Referral Complet ed 01/03/2021 Patient Education: Patient M edication Summary Completed 07/30/2020 Patient Education: Influenza Vaccine Completed 07/30/2020 Referral: General Psychologist Referral Close d Instructions Comment Date Leonid is a Male being seen living at [facility]. Initial BPS visit 01/2020. PMHx including DMII, CAD w/ 5 stents, Depression, Seizure Disorder and CKD stage 3. He moved into [facility] in 12/2019 but after a hospitalization 05/2021 he moved to the [facility] to have closer nursing attention. Sister Jyotsna involved in his care cell# [phone] Guardian: Don (tapan met in person 09/01/21), now has Lexii (same group as don)Lab Schedule: * 10/06/2022 Candidiasis, intertrigo Currently no infection, but encouraged him to shower more often (currently showers 2d/w). Cellulitis Treating with Keflex. Nursing to monitor. 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 Ischemic Heart Disease Monitor. Recent ER visits w/u for chest pain negative for cardiac etiology. Hypertension Has been stable - will monitor and if we see consistent increases we will adjust tx. Skin tag Patient prepped and lidocaine administered, then found the incorrect scissor in packaging so procedure DC'd. Will perform next month as I do not have more supplies with me. . 07/30/2020
--- OUTSIDE RECORDS SUMMARY | 2020-09-04 19:00 | XMS_ITS | CCD ---
Author Name Sandra Mandujano CNP Address [address] [place] [address] Phone Organization [facility] Phone Care Team Providers Care Envelope Machine Operator Name Role Phone Tapan Shirley PA-C Primary Care Provider Unavailabl e Tapan Shirley PA-C Chronic Care Management Unavaila ble Summary Purpose DataExchange Insurance Providers Payer name Policy type / Coverage type Covered republican ID Effective Begin Date Effective End Date Medicare [place] Medicare Part B [id number] Unknown Unknown Medicaid [place] Medicare Part B [id number] Unknown Unknown Family history Runs in the family Diagnosis Age At Onset No Known Diseases N/A Social History Social History Element Codes Description Effec tive Dates Living arrangements Unknown Intermediate 09/03/[address]: 6938399 Non-Smoker / No History of Smoking 09/02/[address]: 729559124 No Alcohol Consum ption 09/02/2020 Allergies, Adverse Reactions, Alerts Substance Reaction Codes Entered Date Inactivated Date Status LISINOPRIL RxNorm: 22719 02/12/2020 No Inactive Da te Active Metformin HCl Unknown 02/12/2020 No Inactive Cristiano e Active Problems Condition Codes Effective Dates Condition St atus Anemia due to stage 3b chron ic kidney disease ICD-10: N18.32 ICD-9: 285.21 09/03/2020 Active Coronary artery disease invo lving [place] coronary artery of [place] heart, angina presence unspecified ICD-10: I25.10 ICD-9: 414.01 09/03/2020 Active Depression ICD-10: F32.9 ICD-9: 311 09/03/2020 Active Gout due to renal impairment ICD-10: M10 .30 ICD-9: 274.10 09/03/2020 Active Hyperlipidemia associated wi th type 2 diabetes mellitus ICD-10: E11.69 ICD-9: 250.80 09/03/2020 Active Learning disability ICD-10: F81.9 ICD-9: 315.2 09/03/2020 Active nursing home (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 insulin ICD-10: Z79.4 09/03 Active Lower extremity edema ICD-10: R60.0 ICD-9: 782.3 09/03/2020 Active Seizure disorder ICD-10: G40.909 ICD-9: 345.90 09/03/2020 Active Skin tag ICD-10: L91.8 ICD-9: 701.9 09/03/2020 Active Stage 2 chronic kidney disea se due to type 2 diabetes mellitus ICD-10: E11.22 ICD-9: 250.40 09/03/2020 Active Stage 2 chronic kidney disease ICD-10: N 18.2 ICD-9: 585.2 09/03/2020 Active Type 2 diabetes mellitus wit h diabetic polyneuropathy, with long-term current use of insulin ICD-10: E11.42 ICD-9: 250.60 09/03/2020 Active Visit for preventive health examination ICD-10: Z00.00 ICD-9: V70.0 09/03/2020 Active Vitamin D deficiency ICD-10: E55.9 ICD-9: 268.9 09/03/2020 Active Chronic kidney disease, stag e 3 unspecified ICD-10: N18.30 09/03/2020 Resolved Candidiasis, intertrigo ICD-10: B37.2 ICD-9: 112.3 07/30/2020 Active Cellulitis ICD-10: L03.90 ICD-9: 682.9 07/30/2020 Active Secondary hypertension ICD-10: I15.9 ICD-9: 405.99 07/30/2020 Active Dandruff in adult ICD-10: L21.0 ICD-9: 690.18 07/08/2020 Active Contact with and (suspected) exposure to other viral communicable diseases ICD-10: Z20.828 ICD-9: V01.79 07/08/2020 Resolved Contact with and (suspected) exposure to covid-19 ICD-10: Z20.822 ICD-9: V01.79 06/20/2020 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 ICD-9: 705.21 05/15/2020 Active Diabetes Unknown 02/12/2020 Active Diabetes mellitus Type 2 Unknown 02/12/2020 Act annie Anemia in chronic kidney disease ICD-10: D63.1 Resolved Hyperlipidemia, unspecified ICD-10: E78.5 02/12/2020 Resolved Medications Medication Codes Instructions Start Date Stop Date Status Fill Instructions amlodipine 10 mg tablet RxNorm: 257694 Take 1 Tablet(s) Oral QD 09/04/19 21 022 Inactive aspirin 81 mg tablet,delayed release RxNorm: 971729 Take 1 Tablet(s) Oral QD 09/04/19 21 021 Inactive Levemir FlexTouch U-100 Insulin 100 unit/mL (3 mL) subcutaneous pen RxNorm: 934411 Inject 150 Unit(s) Subcutaneous BID 09/04/19 21 022 Inactive venlafaxine ER 150 mg tablet,extended release 24 hr RxNorm: 209620 Take 1 Tablet(s) Oral QD 09/04/19 21 021 Inactive clotrimazole-betame thasone 1 %-0.05 % topical cream RxNorm: 702435 Apply to rash on red area on left abdomen/chest Topical BID 08/10/19 21 Inactive amlodipine 5 mg tablet RxNorm: 027001 Take 1 Tablet(s) Oral QD 07/31/19 21 021 Inactive cephalexin 500 mg tablet RxNorm: 663644 Take 1 Tablet(s) Oral BID BID - Twice Daily 07/31/19 21 021 Inactive Start 08/01/20 pantoprazole 40 mg tablet,delayed release RxNorm: 575020 Take 1 Tablet(s) Oral QAM every morning 07/08/19 21 022 Inactive clopidogrel 75 mg tablet RxNorm: 604397 Take 1 Tablet(s) Oral QD 07/08/19 21 021 Inactive senna 8.6 mg tablet RxNorm: 257075 Take 1 Tablet(s) Oral QD 07/08/19 21 022 Inactive Novolog Flexpen U-100 Insulin aspart 100 unit/mL (3 mL) subcutaneous RxNorm: 5677258 Administer per sliding scale Milliliter(s) Subcutaneous TID 151-200: 10 u; 201-250: 20 u; 251-300: 30 u; 301-350: 40 u; 351-400: 50 u. 07/08/19 21 022 Inactive lisinopril 5 mg tablet RxNorm: 986933 Take 1 Tablet(s) Oral QD 07/08/19 21 021 Inactive Novolog Flexpen U-100 Insulin aspart 100 unit/mL (3 mL) subcutaneous RxNorm: 6770370 Inject 85 Unit(s) Subcutaneous TID 07/08/19 21 022 Inactive pravastatin 80 mg tablet RxNorm: 806330 Take 1 Tablet(s) Oral QHS every night at bedtime 07/08/19 Inactive clotrimazole 1 % topical cream RxNorm: 903099 Apply to bilateral groin areas Topical BID 07/08/19 022 Inactive metoprolol succinate ER 200 mg tablet,extended release 24 hr RxNorm: 409539 Take 1 Tablet(s) Oral QD 07/08/19 21 021 Inactive carbamazepine 200 mg tablet RxNorm: 992426 Take 1 Tablet(s) Oral BID 07/08/19 022 Inactive torsemide 20 mg tablet RxNorm: 689265 Take 1 Tablet(s) Oral QD 07/08/19 023 Inactive Blood Glucose Test strips RxNorm: Use 1 Test Strip QID at PRN 07/08/19 21 Inactive E11.42 Vitamin D3 25 mcg (1,000 unit) tablet RxNorm: 876061 Take 1 Tablet(s) Oral QD 07/08/19 021 Inactive isosorbide dinitrate 30 mg tablet RxNorm: 085487 Take 1 Tablet(s) Oral QD 07/08/19 21 021 Inactive Levemir FlexTouch U-100 Insulin 100 unit/mL (3 mL) subcutaneous pen RxNorm: 992928 Inject 140 Unit(s) Subcutaneous BID 07/08/19 21 021 Inactive venlafaxine 75 mg tablet RxNorm: 855939 Take 1 Tablet(s) Oral QD 07/08/19 21 04/19/2 021 Inactive acetaminophen 500 mg tablet RxNorm: 026540 Take 1 Tablet(s) Oral TID as needed for headache 06/18/19 21 021 Inactive acetaminophen 500 mg tablet RxNorm: 132568 Take 1 Tablet(s) Oral TID as needed for headache 06/18/19 21 021 Inactive Lyrica 100 mg capsule RxNorm: 334116 Take 1 Capsule(s) Oral QHS every night at bedtime 06/11/19 21 021 Inactive Lyrica 50 mg capsule RxNorm: 487407 Take 1 Capsule(s) Oral QAM every morning 06/10/19 21 021 Inactive hydrocortisone 2.5 % topical cream RxNorm: 481590 Apply to bilateral groin creases Topical BID 05/15/20 20 021 Inactive clotrimazole 1 % topical cream RxNorm: 033487 Apply to bilateral groin areas Topical BID 05/15/20 20 021 Inactive Lyrica 50 mg capsule RxNorm: 710068 Take 1 Capsule(s) Oral QAM every morning 05/14/20 20 020 Inactive Lyrica 100 mg capsule RxNorm: 993960 Take 1 Capsule(s) Oral QHS every night [...] Inactive Nystop 100,000 unit/gram topical powder RxNorm: 857424 Apply to abd folds, under breasts and L side of groin Topical BID x 14 days, then BID PRN 04/08/20 20 Inactive dx: yeast dermatitis Lyrica 100 mg capsule RxNorm: 674935 Take 1 Capsule(s) Oral QHS every night at bedtime 03/13/20 20 Inactive Lyrica 50 mg capsule RxNorm: 941393 Take 1 Capsule(s) Oral QAM every morning 03/13/20 Inactive ketoconazole 2 % shampoo RxNorm: 244862 Apply Topical two times a week with showers 03/11/20 20 Inactive cholecalciferol (vitamin D3) 50 mcg (2,000 unit) tablet RxNorm: 163017 Take 1 Tablet(s) Oral QD 03/11/20 Inactive Zetia 10 mg tablet RxNorm: 133341 Take 1 Tablet(s) Oral QD 03/07/20 20 Inactive Zetia 10 mg tablet RxNorm: 866717 Take 1 Tablet(s) Oral QD 03/07/20 20 Inactive Lyrica 50 mg capsule RxNorm: 201927 Take 1 Capsule(s) Oral QAM every morning 02/15/20 20 Inactive Lyrica 100 mg capsule RxNorm: 511533 Take 1 Capsule(s) Oral QHS every night at bedtime 02/15/20 20 Inactive Lyrica 100 mg capsule RxNorm: 693549 Take 1 Capsule(s) Oral QHS every night at bedtime 02/15/20 20 Inactive Lyrica 50 mg capsule RxNorm: 044744 Take 1 Capsule(s) Oral QAM every morning [...] Item Code Result Date S ervice Location [facility] [id number] 09/03/2020 Unknown PHQ9 PHQ9 [id number] 09/03/2020 Unknown Procedures Procedure Codes Date PPPS, SUBSEQ VISIT SNOMED CT: 161930240 779716 CPT-4: G0439 09/03/2020 SYS BP > OR = 140 CPT-4: G8753 09/03/2020 CUI BP LESS 90 CPT-4: G8754 09/03/2020 POS CLIN DEPRES SCRN F/U DOC SNOMED CT: 83369327 CPT-4: G8431 09/03/2020 FXNL STATUS ASSESSED CPT-4: 1170F 09/03/2020 AMNT PAIN NOTED NONE PRSNT CPT-4: 1126F 09/03 FALL RISK ASSESSMENT DOCD CPT-4: 3288F 2020 Vital Signs Date Vital 09/03/2020 Blood Pressure 1: 161/74 Code: 8480-6 Heart Rate 1: 69 bpm Code: 8867-4 Respiratory Rate: 18 bpm Temperature: 36.5 (C) / 97.7 (F) Weight: 401 lbs 2 oz Code: 3141-9 Reason For Visit No Reason For Visit data Encounters Encounter Performer Location Location Address Codes Date (99175) DOMICIL VISIT EST PAT Diagnosis: Anemia due to [...] M10.30] Diagnosis: Lower extremity edema[ICD10: R60.0] Diagnosis: terminal carman (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 insulin[ICD10: Z79.4] Diagnosis: Visit for preventive health examination[ICD10: Z00.00] Diagnosis: Coronary artery disease involving [place] coronary artery of [place] heart, angina presence unspecified[ICD10: I25.10] [facility] [address] [place] [address] CPT-4: 78730 09/03/2020 Plan of Care Planned Activity Notes Codes Status Date Referral: [facility] WPtel: [address] [id number] [place] Referral Records Received 09/21/2022 Referral: [facility] WPtel: [address] [id number] [place] Referral Completed 05/28/2021 Referral: General Cardiology Referral Complet ed 01/03/2021 Patient Education: Patient M edication Summary Completed 09/03/2020 Patient Education: Influenza Vaccine Completed 09/03/2020 Patient Education: Alzheimer''s Disease Completed 09/03/2020 Patient Education: Dementia Complete d 09/03/2020 Referral: General Psychologist Referral Close d Instructions Comment Date Leonid is a Male being seen living at [facility]. Initial BPS visit 01/2020. PMHx including DMII, CAD w/ 5 stents, Depression, Seizure Disorder and CKD stage 3. He moved into The [facility] in 12/2019 but after a hospitalization 05/2021 he moved to the [facility] to have closer nursing attention. Sister Jyotsna involved in his care cell# [phone] Guardian: Don (tapan met in person 09/01/21), now has Lexii (same group as don)Lab Schedule: * 10/06/2022 nursing home (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 i nsulin Continue treatment plan per Dr. Watson. Gout due to renal impairment Continue Allopurinol and monitor. Skin tag Declined skin tag removal. Chronic Kidney Disease Checking CMP Diabetes Checking A1C. 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 Ischemic Heart Disease I do not believe he followed up with cardiology in (per instructions in hospital [place] paperwork). Discussed providing a referral. Epilepsy No recent seizure activity. Edema Checking CMP Depression Increasing Venlafaxine. Monitor Visit for preventive health examination Due for colonoscopy or cologuard but patient refused. Due for PSA - including with lab order today. Okay with vision screen and dental cleaning - staff to schedule. Vitamin D Deficiency Checking Vitamin D level Learning disability Patient lives in an appropriate setting for their needs. Patient receives help from 24/hr end user support specialist. . 09/03/2020
--- OUTSIDE RECORDS SUMMARY | 2020-09-11 19:00 | XMS_ITS | CCD ---
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 Extractor Machine Operator Name Role Phone Tapan Shirley PA-C Primary Care Provider Unavailabl e Tapan Shirley PA-C Chronic Care Management Unavaila ble Summary Purpose DataExchange Insurance Providers Payer name Policy type / Coverage type Covered green party ID Effective Begin Date Effective End Date Medicare [place] Medicare Part B [id number] Unknown Unknown Medicaid [place] Medicare Part B [id number] Unknown Unknown Family history Runs in the family Diagnosis Age At Onset No Known Diseases N/A Social History Social History Element Codes Description Effec tive Dates Living arrangements Unknown Long Term 09/03/[address]: 4168670 Non-Smoker / No History of Smoking 09/02/[address]: 558342076 No Alcohol Consum ption 09/02/2020 Allergies, Adverse Reactions, Alerts Substance Reaction Codes Entered Date Inactivated Date Status LISINOPRIL RxNorm: 40329 02/12/2020 No Inactive Da te Active Metformin HCl Unknown 02/12/2020 No Inactive Cristiano e Active Problems Condition Codes Effective Dates Condition St atus Anemia due to stage 3b chron ic kidney disease ICD-10: N18.32 ICD-9: 285.21 09/03/2020 Active Coronary artery disease invo lving [place] coronary artery of [place] heart, angina presence unspecified ICD-10: I25.10 ICD-9: 414.01 09/03/2020 Active Depression ICD-10: F32.9 ICD-9: 311 09/03/2020 Active Gout due to renal impairment ICD-10: M10 .30 ICD-9: 274.10 09/03/2020 Active Hyperlipidemia associated wi th type 2 diabetes mellitus ICD-10: E11.69 ICD-9: 250.80 09/03/2020 Active Learning disability ICD-10: F81.9 ICD-9: 315.2 09/03/2020 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 icosapent ethyl 1 gram capsule RxNorm: 4115775 Take 2 Capsule(s) Oral BID 09/12/19 021 Inactive Okay to dispense one 2gm tab if you have that available. amlodipine 10 mg tablet RxNorm: 634479 Take 1 Tablet(s) Oral QD 09/04/19 Inactive aspirin 81 mg tablet,delayed release RxNorm: 975088 Take 1 Tablet(s) Oral QD 09/04/19 021 Inactive Levemir FlexTouch U-100 Insulin 100 unit/mL (3 mL) subcutaneous pen RxNorm: 556627 Inject 150 Unit(s) Subcutaneous BID 09/04/19 022 Inactive venlafaxine ER 150 mg tablet,extended release 24 hr RxNorm: 844067 Take 1 Tablet(s) Oral QD 09/04/19 Inactive clotrimazole-betame thasone 1 %-0.05 % topical cream RxNorm: 187839 Apply to rash on red area on left abdomen/chest Topical BID 08/10/19 Inactive amlodipine 5 mg tablet RxNorm: 727793 Take 1 Tablet(s) Oral QD 07/31/19 Inactive cephalexin 500 mg tablet RxNorm: 952094 Take 1 Tablet(s) Oral BID BID - Twice Daily 07/31/19 021 Inactive Start 08/01/20 pantoprazole 40 mg tablet,delayed release RxNorm: 881532 Take 1 Tablet(s) Oral QAM every morning 07/08/19 022 Inactive clopidogrel 75 mg tablet RxNorm: 841469 Take 1 Tablet(s) Oral QD 07/08/19 021 Inactive senna 8.6 mg tablet RxNorm: 512686 Take 1 Tablet(s) Oral QD 07/08/19 21 022 Inactive Novolog Flexpen U-100 Insulin aspart 100 unit/mL (3 mL) subcutaneous RxNorm: 5857968 Administer per sliding scale Milliliter(s) Subcutaneous TID 151-200: 10 u; 201-250: 20 u; 251-300: 30 u; 301-350: 40 u; 351-400: 50 u. 07/08/19 21 022 Inactive lisinopril 5 mg tablet RxNorm: 400517 Take 1 Tablet(s) Oral QD 07/08/19 21 021 Inactive Novolog Flexpen U-100 Insulin aspart 100 unit/mL (3 mL) subcutaneous RxNorm: 8384919 Inject 85 Unit(s) Subcutaneous TID 07/08/19 022 Inactive pravastatin 80 mg tablet RxNorm: 296765 Take 1 Tablet(s) Oral QHS every night at bedtime 07/08/19 022 Inactive clotrimazole 1 % topical cream RxNorm: 850837 Apply to bilateral groin areas Topical BID 07/08/19 21 022 Inactive metoprolol succinate ER 200 mg tablet,extended release 24 hr RxNorm: 893611 Take 1 Tablet(s) Oral QD 07/08/19 21 021 Inactive carbamazepine 200 mg tablet RxNorm: 079451 Take 1 Tablet(s) Oral BID 07/08/19 21 022 Inactive torsemide 20 mg tablet RxNorm: 561556 Take 1 Tablet(s) Oral QD 07/08/19 21 023 Inactive Blood Glucose Test strips RxNorm: Use 1 Test Strip QID at PRN 07/08/19 21 021 Inactive E11.42 Vitamin D3 25 mcg (1,000 unit) tablet RxNorm: 284630 Take 1 Tablet(s) Oral QD 07/08/19 21 021 Inactive isosorbide dinitrate 30 mg tablet RxNorm: 128254 Take 1 Tablet(s) Oral QD 07/08/19 21 021 Inactive Levemir FlexTouch U-100 Insulin 100 unit/mL (3 mL) subcutaneous pen RxNorm: 194304 Inject 140 Unit(s) Subcutaneous BID 07/08/19 21 Inactive venlafaxine 75 mg tablet RxNorm: 243067 Take 1 Tablet(s) Oral QD 07/08/19 21 Inactive acetaminophen 500 mg tablet RxNorm: 782832 Take 1 Tablet(s) Oral TID as needed for headache 06/18/19 21 Inactive acetaminophen 500 mg tablet RxNorm: 157212 Take 1 Tablet(s) Oral TID as needed for headache 06/18/19 21 Inactive Lyrica 100 mg capsule RxNorm: 639114 Take 1 Capsule(s) Oral QHS every night at bedtime 06/11/19 21 Inactive Lyrica 50 mg capsule RxNorm: 877913 Take 1 Capsule(s) Oral QAM every morning 06/10/19 21 Inactive hydrocortisone 2.5 % topical cream RxNorm: 601534 Apply to bilateral groin creases Topical BID 05/15/20 20 021 Inactive clotrimazole 1 % topical cream RxNorm: 816657 Apply to bilateral groin areas Topical BID 05/15/20 20 021 Inactive Lyrica 50 mg capsule RxNorm: 029698 Take 1 Capsule(s) Oral QAM every morning 05/14/20 20 020 Inactive Lyrica 100 mg capsule RxNorm: 754193 Take 1 Capsule(s) Oral QHS every night [...] Inactive Nystop 100,000 unit/gram topical powder RxNorm: 185129 Apply to abd folds, under breasts and L side of groin Topical BID x 14 days, then BID PRN 04/08/20 20 Inactive dx: yeast dermatitis Lyrica 100 mg capsule RxNorm: 161906 Take 1 Capsule(s) Oral QHS every night at bedtime 03/13/20 20 Inactive Lyrica 50 mg capsule RxNorm: 659541 Take 1 Capsule(s) Oral QAM every morning 03/13/20 20 Inactive ketoconazole 2 % shampoo RxNorm: 434710 Apply Topical two times a week with showers 03/11/20 20 Inactive cholecalciferol (vitamin D3) 50 mcg (2,000 unit) tablet RxNorm: 079258 Take 1 Tablet(s) Oral QD 03/11/20 20 Inactive Zetia 10 mg tablet RxNorm: 032518 Take 1 Tablet(s) Oral QD 03/07/20 20 021 Inactive Zetia 10 mg tablet RxNorm: 521559 Take 1 Tablet(s) Oral QD 03/07/20 20 Inactive Lyrica 50 mg capsule RxNorm: 008236 Take 1 Capsule(s) Oral QAM every morning 02/15/20 20 Inactive Lyrica 100 mg capsule RxNorm: 313216 Take 1 Capsule(s) Oral QHS every night at bedtime 02/15/20 20 Inactive Lyrica 100 mg capsule RxNorm: 285538 Take 1 Capsule(s) Oral QHS every night at bedtime 02/15/20 20 Inactive Lyrica 50 mg capsule RxNorm: 954775 Take 1 Capsule(s) Oral QAM every morning [...] Codes Status Date Referral: [facility] WPtel: [address], [address] [id number] [place] Referral Records Received 09/21/2022 Referral: [facility] WPtel: [address] [id number] [place] Referral Completed 05/28/2021 Referral: General Cardiology Referral Complet ed 01/03/2021 Referral: General Psychologist Referral Close d Instructions Comment Date Leonid is a Male being seen living at [facility]. Initial BPS visit 01/2020. PMHx including DMII, CAD w/ 5 stents, Depression, Seizure Disorder and CKD stage 3. He moved into [facility] in 12/2019 but after a hospitalization 05/2021 he moved to the [facility] to have closer nursing attention. Sister yJotsna involved in his care cell# [phone] Guardian: Don (tapan met in person 09/01/21), now has Lexii (same group as don)Lab Schedule: * 10/06/2022
--- OUTSIDE RECORDS SUMMARY | 2020-10-02 19:00 | XMS_ITS | CCD ---
Author Name Sandra Mandujano CNP Address [address] [place] [address] Phone Organization [facility] Phone Care Team Providers Care Tax Compliance Officer Name Role Phone Tapan Shirley PA-C Primary Care Provider Unavailabl e Tapan Shirley PA-C Chronic Care Management Unavaila ble Summary Purpose DataExchange Insurance Providers Payer name Policy type / Coverage type Covered democrat ID Effective Begin Date Effective End Date Medicare [place] Medicare Part B [id number] Unknown Unknown Medicaid [place] Medicare Part B [id number] Unknown Unknown Family history Runs in the family Diagnosis Age At Onset No Known Diseases N/A Social History Social History Element Codes Description Effec tive Dates Living arrangements Unknown [facility] 09/03/[address]: 5667628 Non-Smoker / No History of Smoking 09/02/[address]: 318996136 No Alcohol Consum ption 09/02/2020 Allergies, Adverse Reactions, Alerts Substance Reaction Codes Entered Date Inactivated Date Status LISINOPRIL RxNorm: 33813 02/12/2020 No Inactive Da te Active Metformin HCl Unknown 02/12/2020 No Inactive Cristiano e Active Problems Condition Codes Effective Dates Condition St atus Candidiasis, intertrigo ICD-10: B37.2 ICD-9: 112.3 10/01/2020 Active History of anemia due to CKD ICD-10: N18 .9 ICD-9: 585.9 10/01/2020 Active Hyperlipidemia associated wi th type 2 diabetes mellitus ICD-10: E11.69 ICD-9: 250.80 10/01/2020 Active Scrotal skin lesion ICD-10: N50.9 ICD-9: 608.9 10/01/2020 Active Secondary hypertension ICD-10: I15.9 ICD-9: 405.99 10/01/2020 Active Stage 2 chronic kidney disease ICD-10: N 18.2 ICD-9: 585.2 10/01/2020 Active Stage 2 chronic kidney disea se due to type 2 diabetes mellitus ICD-10: E11.22 ICD-9: 250.40 10/01/2020 Active Type 2 diabetes mellitus wit h diabetic polyneuropathy, with long-term current use of insulin ICD-10: E11.42 ICD-9: 250.60 10/01/2020 Active Anemia due to stage 3b chron ic kidney disease ICD-10: N18.32 ICD-9: 285.21 10/01/2020 Resolved Coronary artery disease invo [place]ving [place] coronary artery of [place] heart, angina presence unspecified ICD-10: I25.10 ICD-9: 414.01 09/03/2020 Active Depression ICD-10: F32.9 ICD-9: 311 09/03/2020 Active Gout due to renal impairment ICD-10: M10 .30 ICD-9: 274.10 09/03/2020 Active Learning disability ICD-10: F81.9 ICD-9: 315.2 09/03/2020 Active alf (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 insulin ICD-10: Z79.4 09/03 Active Lower extremity edema ICD-10: R60.0 ICD-9: 782.3 09/03/2020 Active Seizure disorder ICD-10: G40.909 ICD-9: 345.90 09/03/2020 Active Skin tag ICD-10: L91.8 ICD-9: 701.9 09/03/2020 Active Visit for preventive health examination ICD-10: Z00.00 ICD-9: V70.0 09/03/2020 Active Vitamin D deficiency ICD-10: E55.9 ICD-9: 268.9 09/03/2020 Active Chronic kidney disease, stag e 3 unspecified ICD-10: N18.30 09/03/2020 Resolved Cellulitis ICD-10: L03.90 ICD-9: 682.9 07/30/2020 Active Dandruff in adult ICD-10: L21.0 [...] Fill Instructions lisinopril 10 mg tablet RxNorm: 000128 Take 1 Tablet(s) Oral QD 10/02/19 21 021 Inactive icosapent ethyl 1 gram capsule RxNorm: 1519246 Take 2 Capsule(s) (2 gm) Oral BID with meals 09/12/19 022 Inactive Okay to dispense one 2gm tab if you have that available. icosapent ethyl 1 gram capsule RxNorm: 7777281 Take 2 Capsule(s) Oral BID 09/12/19 21 021 Inactive Okay to dispense one 2gm tab if you have that available. amlodipine 10 mg tablet RxNorm: 884330 Take 1 Tablet(s) Oral QD 09/04/19 022 Inactive aspirin 81 mg tablet,delayed release RxNorm: 741909 Take 1 Tablet(s) Oral QD 09/04/19 21 021 Inactive Levemir FlexTouch U-100 Insulin 100 unit/mL (3 mL) subcutaneous pen RxNorm: 152472 Inject 150 Unit(s) Subcutaneous BID 09/04/19 21 022 Inactive venlafaxine ER 150 mg tablet,extended release 24 hr RxNorm: 842435 Take 1 Tablet(s) Oral QD 09/04/19 21 021 Inactive clotrimazole-betame thasone 1 %-0.05 % topical cream RxNorm: 031731 Apply to rash on red area on left abdomen/chest Topical BID 08/10/19 21 021 Inactive amlodipine 5 mg tablet RxNorm: 744092 Take 1 Tablet(s) Oral QD 07/31/19 21 021 Inactive cephalexin 500 mg tablet RxNorm: 956039 Take 1 Tablet(s) Oral BID BID - Twice Daily 07/31/19 021 Inactive Start 08/01/20 pantoprazole 40 mg tablet,delayed release RxNorm: 046119 Take 1 Tablet(s) Oral QAM every morning 07/08/19 022 Inactive clopidogrel 75 mg tablet RxNorm: 625020 Take 1 Tablet(s) Oral QD 07/08/19 021 Inactive senna 8.6 mg tablet RxNorm: 543867 Take 1 Tablet(s) Oral QD 07/08/19 022 Inactive Novolog Flexpen U-100 Insulin aspart 100 unit/mL (3 mL) subcutaneous RxNorm: 6557544 Administer per sliding scale Milliliter(s) Subcutaneous TID 151-200: 10 u; 201-250: 20 u; 251-300: 30 u; 301-350: 40 u; 351-400: 50 u. 07/08/19 022 Inactive Novolog Flexpen U-100 Insulin aspart 100 unit/mL (3 mL) subcutaneous RxNorm: 6339510 Inject 85 Unit(s) Subcutaneous TID 07/08/19 022 Inactive pravastatin 80 mg tablet RxNorm: 902714 Take 1 Tablet(s) Oral QHS every night at bedtime 07/08/19 022 Inactive clotrimazole 1 % topical cream RxNorm: 165887 Apply to bilateral groin areas Topical BID 07/08/19 022 Inactive metoprolol succinate ER 200 mg tablet,extended release 24 hr RxNorm: 720347 Take 1 Tablet(s) Oral QD 07/08/19 021 Inactive carbamazepine 200 mg tablet RxNorm: 798382 Take 1 Tablet(s) Oral BID 07/08/19 21 022 Inactive torsemide 20 mg tablet RxNorm: 837458 Take 1 Tablet(s) Oral QD 07/08/19 21 023 Inactive Blood Glucose Test strips RxNorm: Use 1 Test Strip QID at PRN 02/22 Inactive E11.42 lisinopril 5 mg tablet RxNorm: 618272 Take 1 Tablet(s) Oral QD 07/08/19 Inactive Vitamin D3 25 mcg (1,000 unit) tablet RxNorm: 130302 Take 1 Tablet(s) Oral QD 07/08/19 Inactive isosorbide dinitrate 30 mg tablet RxNorm: 635704 Take 1 Tablet(s) Oral QD 07/08/19 Inactive Levemir FlexTouch U-100 Insulin 100 unit/mL (3 mL) subcutaneous pen RxNorm: 684531 Inject 140 Unit(s) Subcutaneous BID 07/08/19 Inactive venlafaxine 75 mg tablet RxNorm: 718143 Take 1 Tablet(s) Oral QD 07/08/19 Inactive acetaminophen 500 mg tablet RxNorm: 656402 Take 1 Tablet(s) Oral TID as needed for headache 06/18/19 Inactive acetaminophen 500 mg tablet RxNorm: 784681 Take 1 Tablet(s) Oral TID as needed for headache 06/18/19 Inactive Lyrica 100 mg capsule RxNorm: 081669 Take 1 Capsule(s) Oral QHS every night at bedtime 06/11/19 Inactive Lyrica 50 mg capsule RxNorm: 276453 Take 1 Capsule(s) Oral QAM every morning 06/10/19 021 Inactive hydrocortisone 2.5 % topical cream RxNorm: 175447 Apply to bilateral groin creases Topical BID 05/15/20 20 Inactive clotrimazole 1 % topical cream RxNorm: 020842 Apply to bilateral groin areas Topical BID 05/15/20 20 Inactive Lyrica 50 mg capsule RxNorm: 587817 Take 1 Capsule(s) Oral QAM every morning 05/14/20 20 Inactive Lyrica 100 mg capsule RxNorm: 690558 Take 1 Capsule(s) Oral QHS every night at bedtime 05/14/20 20 12/29/2 020 Inactive Blood Glucose Monitoring kit RxNorm: [...] Inactive Nystop 100,000 unit/gram topical powder RxNorm: 213768 Apply to abd folds, under breasts and L side of groin Topical BID x 14 days, then BID PRN 04/08/20 20 021 Inactive dx: yeast dermatitis Lyrica 100 mg capsule RxNorm: 125363 Take 1 Capsule(s) Oral QHS every night at bedtime 03/13/20 20 Inactive Lyrica 50 mg capsule RxNorm: 777786 Take 1 Capsule(s) Oral QAM every morning 03/13/20 20 Inactive ketoconazole 2 % shampoo RxNorm: 399430 Apply Topical two times a week with showers 03/11/20 20 Inactive cholecalciferol (vitamin D3) 50 mcg (2,000 unit) tablet RxNorm: 610409 Take 1 Tablet(s) Oral QD 03/11/20 20 021 Inactive Zetia 10 mg tablet RxNorm: 618933 Take 1 Tablet(s) Oral QD 03/07/20 20 021 Inactive Zetia 10 mg tablet RxNorm: 151469 Take 1 Tablet(s) Oral QD 03/07/20 20 Inactive Lyrica 50 mg capsule RxNorm: 397533 Take 1 Capsule(s) Oral QAM every morning 02/15/20 20 10/01/2 020 Inactive Lyrica 100 mg capsule RxNorm: 287683 Take 1 Capsule(s) Oral QHS every night at bedtime 02/15/20 20 020 Inactive Lyrica 100 mg capsule RxNorm: 198424 Take 1 Capsule(s) Oral QHS every night at bedtime 02/15/20 20 020 Inactive Lyrica 50 mg capsule RxNorm: 984976 Take 1 Capsule(s) Oral QAM every morning 02/15/20 020 Inactive Medication Administered No Medication Administered [...] Encounter Performer Location Location Address Codes Date (10046) DOMICIL VISIT EST PAT Diagnosis: Hyperlipidemia associated with type 2 diabetes mellitus[ICD10: E11.69] Diagnosis: Stage 2 chronic 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[ICD10: E11.22] Diagnosis: Type 2 diabetes mellitus with diabetic polyneuropathy, with long-term current use of insulin[ICD10: E11.42] Diagnosis: Candidiasis, intertrigo[ICD10: B37.2] Diagnosis: Personal history of diseases of the blood and blood-forming organs and certain disorders involving the immune mechanism[ICD10: Z86.2] Diagnosis: History of anemia due to CKD[ICD10: N18.9] Diagnosis: Anemia due to stage 3b chronic kidney disease[ICD10: N18.32] Diagnosis: Stage 2 chronic kidney disease[ICD10: N18.2] Diagnosis: Scrotal skin lesion[ICD10: N50.9] Diagnosis: Secondary hypertension[ICD10: I15.9] Sandra Mandujano [facility] [address] [place] [address] CPT-4: 31653 10/01/2020 Plan of Care Planned Activity Notes Codes Status Date Referral: [facility] WPtel: [address], [address] [id number] [place] Referral Records Received 09/21/2022 Referral: [facility] WPtel: [address] [id number] [place] Referral Completed 05/28/2021 Referral: General Cardiology Referral Complet ed 01/03/2021 Patient Education: Patient M edication Summary Completed 10/01/2020 Patient Education: Influenza Vaccine Completed 10/01/2020 Referral: General Psychologist Referral Close d Instructions Comment Date Leonid is a Male being seen living at [facility]. Initial BPS visit 01/2020. PMHx including DMII, CAD w/ 5 stents, Depression, Seizure Disorder and CKD stage 3. He moved into The [facility] in 12/2019 but after a hospitalization 05/2021 he moved to the [facility] to have closer nursing attention. Sister Jyotsna involved in his care cell# [phone] Guardian: Don (tapan met in person 09/01/21), now has Lexii (same group as don)Lab Schedule: * 10/06/2022 Chronic Kidney Disease Anemia 2/2 CKD resolved. Scrotal skin lesion Referring to a wound RN. Recommend staff member be present during wound RN visits or wound RN be male. Diabetes Continue Vascepa. Encourage healthy lifestyle choices. Hypertension Increasing Lisinopril. Will optimize current agents vs adding additional medications. Candidiasis, intertrigo Referring to a wound RN. Would recommend a staff member be present for the [facility] RN treatment sessions. . 10/01/2020
--- OUTSIDE RECORDS SUMMARY | 2020-10-22 19:00 | XMS_ITS | CCD ---
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 District Engineer Name Role Phone Tapan Shirley PA-C Primary Care Provider Unavailabl e Tapan Shirley PA-C Chronic Care Management Unavaila ble Summary Purpose DataExchange Insurance Providers Payer name Policy type / Coverage type Covered green party ID Effective Begin Date Effective End Date Medicare [place] Part B [id number] Unknown Unknown Medicaid [place] Medicare Part B [id number] Unknown Unknown Family history Runs in the family Diagnosis Age At Onset No Known Diseases N/A Social History Social History Element Codes Description Effec tive Dates Living arrangements Unknown Alf 09/03/[address]: 9961795 Non-Smoker / No History of Smoking 09/02/[address]: 661061145 No Alcohol Consum ption 09/02/2020 Allergies, Adverse Reactions, Alerts Substance Reaction Codes Entered Date Inactivated Date Status LISINOPRIL RxNorm: 83049 02/12/2020 No Inactive Da te Active Metformin [...] 10/01/2020 Resolved Coronary artery disease invo lving [place] coronary artery of [place] heart, angina presence unspecified ICD-10: I25.10 ICD-9: 414.01 09/03/2020 Active Depression ICD-10: F32.9 ICD-9: 311 09/03/2020 Active Gout due to renal impairment ICD-10: M10 .30 ICD-9: 274.10 09/03/2020 Active Learning disability ICD-10: F81.9 ICD-9: 315.2 09/03/2020 Active MCC (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 insulin ICD-10: Z79.4 09/03 [...] Fill Instructions lisinopril 20 mg tablet RxNorm: 445202 Take 1 Tablet(s) Oral QD 10/23/19 21 021 Inactive lisinopril 20 mg tablet RxNorm: 708188 Take 1 Tablet(s) Oral QD 10/23/19 21 Inactive lisinopril 10 mg tablet RxNorm: 985471 Take 1 Tablet(s) Oral QD 10/02/19 021 Inactive icosapent ethyl 1 gram capsule RxNorm: 7315851 Take 2 Capsule(s) (2 gm) Oral BID with meals 09/12/19 022 Inactive Okay to dispense one 2gm tab if you have that available. icosapent ethyl 1 gram capsule RxNorm: 0111999 Take 2 Capsule(s) Oral BID 09/12/19 21 021 Inactive Okay to dispense one 2gm tab if you have that available. amlodipine 10 mg tablet RxNorm: 294136 Take 1 Tablet(s) Oral QD 09/04/19 022 Inactive aspirin 81 mg tablet,delayed release RxNorm: 398533 Take 1 Tablet(s) Oral QD 09/04/19 21 Inactive Levemir FlexTouch U-100 Insulin 100 unit/mL (3 mL) subcutaneous pen RxNorm: 132165 Inject 150 Unit(s) Subcutaneous BID 09/04/19 21 022 Inactive venlafaxine ER 150 mg tablet,extended release 24 hr RxNorm: 317863 Take 1 Tablet(s) Oral QD 09/04/19 21 021 Inactive clotrimazole-betame thasone 1 %-0.05 % topical cream RxNorm: 099779 Apply to rash on red area on left abdomen/chest Topical BID 08/10/19 21 Inactive amlodipine 5 mg tablet RxNorm: 258034 Take 1 Tablet(s) Oral QD 07/31/19 Inactive cephalexin 500 mg tablet RxNorm: 451319 Take 1 Tablet(s) Oral BID BID - Twice Daily 07/31/19 Inactive Start 08/01/20 pantoprazole 40 mg tablet,delayed release RxNorm: 753790 Take 1 Tablet(s) Oral QAM every morning 07/08/19 022 Inactive clopidogrel 75 mg tablet RxNorm: 387463 Take 1 Tablet(s) Oral QD 07/08/19 021 Inactive senna 8.6 mg tablet RxNorm: 586276 Take 1 Tablet(s) Oral QD 07/08/19 022 Inactive Novolog Flexpen U-100 Insulin aspart 100 unit/mL (3 mL) subcutaneous RxNorm: 2326081 Administer per sliding scale Milliliter(s) Subcutaneous TID 151-200: 10 u; 201-250: 20 u; 251-300: 30 u; 301-350: 40 u; 351-400: 50 u. 07/08/19 Inactive Novolog Flexpen U-100 Insulin aspart 100 unit/mL (3 mL) subcutaneous RxNorm: 2139625 Inject 85 Unit(s) Subcutaneous TID 07/08/19 022 Inactive pravastatin 80 mg tablet RxNorm: 535431 Take 1 Tablet(s) Oral QHS every night at bedtime 07/08/19 022 Inactive clotrimazole 1 % topical cream RxNorm: 956771 Apply to bilateral groin areas Topical BID 07/08/19 022 Inactive metoprolol succinate ER 200 mg tablet,extended release 24 hr RxNorm: 030322 Take 1 Tablet(s) Oral QD 07/08/19 21 Inactive carbamazepine 200 mg tablet RxNorm: 082570 Take 1 Tablet(s) Oral BID 07/08/19 21 022 Inactive torsemide 20 mg tablet RxNorm: 630331 Take 1 Tablet(s) Oral QD 07/08/19 21 023 Inactive Blood Glucose Test strips RxNorm: Use 1 Test Strip QID at PRN 07/08/19 21 Inactive E11.42 lisinopril 5 mg tablet RxNorm: 066054 Take 1 Tablet(s) Oral QD 07/08/19 Inactive Vitamin D3 25 mcg (1,000 unit) tablet RxNorm: 963800 Take 1 Tablet(s) Oral QD 07/08/19 021 Inactive isosorbide dinitrate 30 mg tablet RxNorm: 441108 Take 1 Tablet(s) Oral QD 07/08/19 021 Inactive Levemir FlexTouch U-100 Insulin 100 unit/mL (3 mL) subcutaneous pen RxNorm: 024773 Inject 140 Unit(s) Subcutaneous BID 07/08/19 Inactive venlafaxine 75 mg tablet RxNorm: 600516 Take 1 Tablet(s) Oral QD 07/08/19 Inactive acetaminophen 500 mg tablet RxNorm: 659000 Take 1 Tablet(s) Oral TID as needed for headache 06/18/19 021 Inactive acetaminophen 500 mg tablet RxNorm: 951282 Take 1 Tablet(s) Oral TID as needed for headache 06/18/19 021 Inactive Lyrica 100 mg capsule RxNorm: 733027 Take 1 Capsule(s) Oral QHS every night at bedtime 06/11/19 021 Inactive Lyrica 50 mg capsule RxNorm: 766793 Take 1 Capsule(s) Oral QAM every morning 06/10/19 021 Inactive hydrocortisone 2.5 % topical cream RxNorm: 541060 Apply to bilateral groin creases Topical BID 05/15/20 20 021 Inactive clotrimazole 1 % topical cream RxNorm: 230655 Apply to bilateral groin areas Topical BID 05/15/20 20 021 Inactive Lyrica 50 mg capsule RxNorm: 980853 Take 1 Capsule(s) Oral QAM every morning 05/14/20 20 020 Inactive Lyrica 100 mg capsule RxNorm: 272733 Take 1 Capsule(s) Oral QHS every night [...] Inactive Nystop 100,000 unit/gram topical powder RxNorm: 936053 Apply to abd folds, under breasts and L side of groin Topical BID x 14 days, then BID PRN 04/08/20 20 021 Inactive dx: yeast dermatitis Lyrica 100 mg capsule RxNorm: 917063 Take 1 Capsule(s) Oral QHS every night at bedtime 03/13/20 20 Inactive Lyrica 50 mg capsule RxNorm: 676850 Take 1 Capsule(s) Oral QAM every morning 03/13/20 20 Inactive ketoconazole 2 % shampoo RxNorm: 491696 Apply Topical two times a week with showers 03/11/20 20 Inactive cholecalciferol (vitamin D3) 50 mcg (2,000 unit) tablet RxNorm: 664715 Take 1 Tablet(s) Oral QD 03/11/20 20 Inactive Zetia 10 mg tablet RxNorm: 804184 Take 1 Tablet(s) Oral QD 03/07/20 20 021 Inactive Zetia 10 mg tablet RxNorm: 572249 Take 1 Tablet(s) Oral QD 03/07/20 20 Inactive Lyrica 50 mg capsule RxNorm: 931150 Take 1 Capsule(s) Oral QAM every morning 02/15/20 20 Inactive Lyrica 100 mg capsule RxNorm: 427710 Take 1 Capsule(s) Oral QHS every night at bedtime 02/15/20 20 Inactive Lyrica 100 mg capsule RxNorm: 694640 Take 1 Capsule(s) Oral QHS every night at bedtime 02/15/20 20 Inactive Lyrica 50 mg capsule RxNorm: 249722 Take 1 Capsule(s) Oral QAM every morning [...] Codes Status Date Referral: [facility] WPtel: [address] , [address] [id number] [place] Referral Records Received 09/21/2022 Referral: [facility] WPtel: [address] [id number] [place] Referral Completed 05/28/2021 Referral: General Cardiology [...] Sister Jyotsna involved in his care cell# [phone] Guardian: Don (tapan met in person 09/01/21), now has Lexii (same group as don)Lab Schedule: * 10/06/2022
--- OUTSIDE RECORDS SUMMARY | 2020-10-31 19:00 | XMS_ITS | CCD ---
Author Name Sandra Mandujano CNP Address [address] [facility] [address] [facility] [address] [place] [address] Phone Organization [facility] Phone Care Team Providers Care Field Services Manager Name Role Phone Tapan Shirley PA-C Primary Care Provider Unavailabl e Tapan Shirley PA-C Chronic Care Management Unavaila ble Summary Purpose DataExchange Insurance Providers Payer name Policy type / Coverage type Covered constitution party ID Effective Begin Date Effective End Date Medicare [place] Medicare Part B [id number] Unknown Unknown Medicaid [place] Medicare Part B [id number] Unknown Unknown Family history Runs in the family Diagnosis Age At Onset No Known Diseases N/A Social History Social History Element Codes Description Effec tive Dates Living arrangements Unknown Longterm 09/03/[address]: 0790429 Non-Smoker / No History of Smoking 09/02/[address]: 016727531 No Alcohol Consum ption 09/02/2020 Allergies, Adverse Reactions, Alerts Substance Reaction Codes Entered Date Inactivated Date Status LISINOPRIL RxNorm: 93527 02/12/2020 No Inactive Da te Active Metformin HCl Unknown 02/12/2020 No Inactive Cristiano e Active Problems Condition Codes Effective Dates Condition St atus Candidiasis, intertrigo ICD-10: B37.2 ICD-9: 112.3 10/29/2020 Active Inappropriate sexual behavior ICD-10: Z7 2.89 ICD-9: 312.89 10/29/2020 Active Scrotal skin lesion ICD-10: N50.9 ICD-9: 608.9 10/29/2020 Active Secondary hypertension ICD-10: I15.9 ICD-9: 405.99 10/29/2020 Active Cellulitis ICD-10: L03.90 ICD-9: 682.9 10/29/2020 Resolved History of anemia due to CKD ICD-10: N18 .9 ICD-9: 585.9 10/01/2020 Active Hyperlipidemia associated wi th type 2 diabetes mellitus ICD-10: E11.69 ICD-9: 250.80 10/01/2020 Active Stage 2 chronic kidney disease [...] 10/01/2020 Resolved Coronary artery disease invo lving [place] coronary artery of [place] heart, angina presence unspecified ICD-10: I25.10 ICD-9: 414.01 09/03/2020 Active Depression ICD-10: F32.9 ICD-9: 311 09/03/2020 Active Gout due to renal impairment ICD-10: M10 .30 ICD-9: 274.10 09/03/2020 Active Learning disability ICD-10: F81.9 ICD-9: 315.2 09/03/2020 Active retirement (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 insulin ICD-10: Z79.4 09/03 [...] e 3 unspecified ICD-10: N18.30 09/03/2020 Resolved Dandruff in adult ICD-10: L21.0 ICD-9: 690.18 [...] Fill Instructions lisinopril 30 mg tablet RxNorm: 467481 Take 1 Tablet(s) Oral QD 10/30/19 021 Inactive lisinopril 20 mg tablet RxNorm: 924765 Take 1 Tablet(s) Oral QD 10/23/19 021 Inactive lisinopril 20 mg tablet RxNorm: 688749 Take 1 Tablet(s) Oral QD 10/23/19 21 021 Inactive lisinopril 10 mg tablet RxNorm: 547736 Take 1 Tablet(s) Oral QD 10/02/19 021 Inactive icosapent ethyl 1 gram capsule RxNorm: 0606415 Take 2 Capsule(s) (2 gm) Oral BID with meals 09/12/19 022 Inactive Okay to dispense one 2gm tab if you have that available. icosapent ethyl 1 gram capsule RxNorm: 9491283 Take 2 Capsule(s) Oral BID 09/12/19 21 021 Inactive Okay to dispense one 2gm tab if you have that available. amlodipine 10 mg tablet RxNorm: 752907 Take 1 Tablet(s) Oral QD 09/04/19 022 Inactive aspirin 81 mg tablet,delayed release RxNorm: 192612 Take 1 Tablet(s) Oral QD 09/04/19 21 021 Inactive Levemir FlexTouch U-100 Insulin 100 unit/mL (3 mL) subcutaneous pen RxNorm: 444370 Inject 150 Unit(s) Subcutaneous BID 09/04/19 Inactive venlafaxine ER 150 mg tablet,extended release 24 hr RxNorm: 313295 Take 1 Tablet(s) Oral QD 09/04/19 Inactive clotrimazole-betame thasone 1 %-0.05 % topical cream RxNorm: 465285 Apply to rash on red area on left abdomen/chest Topical BID 08/10/19 Inactive amlodipine 5 mg tablet RxNorm: 061235 Take 1 Tablet(s) Oral QD 07/31/19 Inactive cephalexin 500 mg tablet RxNorm: 860785 Take 1 Tablet(s) Oral BID BID - Twice Daily 07/31/19 Inactive Start 08/01/20 pantoprazole 40 mg tablet,delayed release RxNorm: 582872 Take 1 Tablet(s) Oral QAM every morning 07/08/19 Inactive clopidogrel 75 mg tablet RxNorm: 432949 Take 1 Tablet(s) Oral QD 07/08/19 Inactive senna 8.6 mg tablet RxNorm: 678162 Take 1 Tablet(s) Oral QD 07/08/19 Inactive Novolog Flexpen U-100 Insulin aspart 100 unit/mL (3 mL) subcutaneous RxNorm: 4027430 Administer per sliding scale Milliliter(s) Subcutaneous TID 151-200: 10 u; 201-250: 20 u; 251-300: 30 u; 301-350: 40 u; 351-400: 50 u. 07/08/19 21 Inactive Novolog Flexpen U-100 Insulin aspart 100 unit/mL (3 mL) subcutaneous RxNorm: 6075539 Inject 85 Unit(s) Subcutaneous TID 07/08/19 Inactive pravastatin 80 mg tablet RxNorm: 143401 Take 1 Tablet(s) Oral QHS every night at bedtime 07/08/19 Inactive clotrimazole 1 % topical cream RxNorm: 218829 Apply to bilateral groin areas Topical BID 07/08/19 21 10/04/2 022 Inactive carbamazepine 200 mg tablet RxNorm: 996247 Take 1 Tablet(s) Oral BID 07/08/19 022 Inactive torsemide 20 mg tablet RxNorm: 317606 Take 1 Tablet(s) Oral QD 07/08/19 023 Inactive Blood Glucose Test strips RxNorm: Use 1 Test Strip QID at PRN 07/08/19 21 021 Inactive E11.42 lisinopril 5 mg tablet RxNorm: 892495 Take 1 Tablet(s) Oral QD 07/08/19 021 Inactive metoprolol succinate ER 200 mg tablet,extended release 24 hr RxNorm: 231573 Take 1 Tablet(s) Oral QD 07/08/19 Inactive Vitamin D3 25 mcg (1,000 unit) tablet RxNorm: 146356 Take 1 Tablet(s) Oral QD 07/08/19 021 Inactive isosorbide dinitrate 30 mg tablet RxNorm: 752012 Take 1 Tablet(s) Oral QD 07/08/19 021 Inactive Levemir FlexTouch U-100 Insulin 100 unit/mL (3 mL) subcutaneous pen RxNorm: 306412 Inject 140 Unit(s) Subcutaneous BID 07/08/19 Inactive venlafaxine 75 mg tablet RxNorm: 887378 Take 1 Tablet(s) Oral QD 07/08/19 021 Inactive acetaminophen 500 mg tablet RxNorm: 110906 Take 1 Tablet(s) Oral TID as needed for headache 06/18/19 021 Inactive acetaminophen 500 mg tablet RxNorm: 485030 Take 1 Tablet(s) Oral TID as needed for headache 06/18/19 021 Inactive Lyrica 100 mg capsule RxNorm: 666504 Take 1 Capsule(s) Oral QHS every night at bedtime 06/11/19 021 Inactive Lyrica 50 mg capsule RxNorm: 046543 Take 1 Capsule(s) Oral QAM every morning 06/10/19 021 Inactive hydrocortisone 2.5 % topical cream RxNorm: 922256 Apply to bilateral groin creases Topical BID 05/15/20 20 021 Inactive clotrimazole 1 % topical cream RxNorm: 284618 Apply to bilateral groin areas Topical BID 05/15/20 20 Inactive Lyrica 50 mg capsule RxNorm: 272978 Take 1 Capsule(s) Oral QAM every morning 05/14/20 20 Inactive Lyrica 100 mg capsule RxNorm: 474105 Take 1 Capsule(s) Oral QHS every night [...] Inactive Nystop 100,000 unit/gram topical powder RxNorm: 595934 Apply to abd folds, under breasts and L side of groin Topical BID x 14 days, then BID PRN 04/08/20 20 021 Inactive dx: yeast dermatitis Lyrica 100 mg capsule RxNorm: 032668 Take 1 Capsule(s) Oral QHS every night at bedtime 03/13/20 20 Inactive Lyrica 50 mg capsule RxNorm: 837457 Take 1 Capsule(s) Oral QAM every morning 03/13/20 20 Inactive ketoconazole 2 % shampoo RxNorm: 095514 Apply Topical two times a week with showers 03/11/20 20 Inactive cholecalciferol (vitamin D3) 50 mcg (2,000 unit) tablet RxNorm: 192332 Take 1 Tablet(s) Oral QD 03/11/20 Inactive Zetia 10 mg tablet RxNorm: 870119 Take 1 Tablet(s) Oral QD 03/07/20 021 Inactive Zetia 10 mg tablet RxNorm: 886947 Take 1 Tablet(s) Oral QD 03/07/20 Inactive Lyrica 50 mg capsule RxNorm: 084151 Take 1 Capsule(s) Oral QAM every morning 02/15/20 Inactive Lyrica 100 mg capsule RxNorm: 506494 Take 1 Capsule(s) Oral QHS every night at bedtime 02/15/20 Inactive Lyrica 100 mg capsule RxNorm: 011032 Take 1 Capsule(s) Oral QHS every night at bedtime 02/15/20 Inactive Lyrica 50 mg capsule RxNorm: 452928 Take 1 Capsule(s) Oral QAM every morning [...] Encounter Performer Location Location Address Codes Date (57553) DOMICIL VISIT EST PAT Diagnosis: Candidiasis, intertrigo[ICD10: B37.2] Diagnosis: Scrotal skin lesion[ICD10: N50.9] Diagnosis: Secondary hypertension[ICD10: I15.9] Diagnosis: Inappropriate sexual behavior[ICD10: Z72.89] Sandra Mandujano [facility] [address] [place] [address] CPT-4: 01978 10/29/2020 Plan of Care Planned Activity Notes Codes Status Date Referral: [facility] WPtel: [address] [id number] [place] Referral Records Received 09/21/2022 Referral: [facility] WPtel: [address] [id number] [place] Referral Completed 05/28/2021 Referral: General Cardiology Referral Complet ed 01/03/2021 Patient Education: Patient M edication Summary Completed 10/29/2020 Patient Education: Influenza Vaccine Completed 10/29/2020 Referral: General Psychologist Referral Close d Instructions Comment Date Leonid is a Male being seen living at [facility]. Initial BPS visit 01/2020. PMHx including DMII, CAD w/ 5 stents, Depression, Seizure Disorder and CKD stage 3. He moved into [facility] in 12/2019 but after a hospitalization 05/2021 he [facility] to have closer nursing attention. Sister Jyotsna involved in his care cell# [phone] Guardian: Don (tapan met in person 09/01/21), now has Lexii (same group as don)Lab Schedule: * 10/06/2022 Inappropriate sexual behavio r Recommend conference - I am happy to attend. Recommend he and Tammy (facility nurse) speak with his case folder regarding more appropriate accommodations with male staff. Candidiasis, intertrigo Improved. Monitor. Patient needs assistance with cares. His obesity and large pannus prevents him from doing good hygiene cares on his own. Recommend home sends over male staff and/or have two staff members present. Hypertension Increasing Lisinopril again Scrotal skin lesion Resolved. . 10/29/2020
--- OUTSIDE RECORDS SUMMARY | 2020-11-03 19:00 | XMS_ITS | CCD ---
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 Protective Signal Installer Helper Name Role Phone Tapan Shirley PA-C Primary Care Provider Unavailabl e Tapan Shirley PA-C Chronic Care Management Unavaila ble Summary Purpose DataExchange Insurance Providers Payer name Policy type / Coverage type Covered libertarian ID Effective Begin Date Effective End Date Medicare [place] Part [place] [id number] Unknown Unknown Medicaid [place] Medicare Part [place] [id number] Unknown Unknown Family history Runs in the family Diagnosis Age At Onset No Known Diseases N/A Social History Social History Element Codes Description Effec tive Dates Living arrangements Unknown Long-Term 09/03/[address]: 9935525 Non-Smoker / No History of Smoking 09/02/[address]: 573683706 No Alcohol Consum ption 09/02/2020 Allergies, Adverse Reactions, Alerts Substance Reaction Codes Entered Date Inactivated Date Status LISINOPRIL RxNorm: 35073 02/12/2020 No Inactive Da te Active Metformin [...] 10/01/2020 Resolved Coronary artery disease invo lving [place] coronary artery of [place] heart, angina presence unspecified ICD-10: I25.10 ICD-9: 414.01 09/03/2020 Active Depression ICD-10: F32.9 ICD-9: 311 09/03/2020 Active Gout due to renal impairment ICD-10: M10 .30 ICD-9: 274.10 09/03/2020 Active Learning disability ICD-10: F81.9 ICD-9: 315.2 09/03/2020 Active medical terminologist (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 insulin ICD-10: Z79.4 09/03 [...] Inactive E11.42 lisinopril 30 mg tablet RxNorm: 170313 Take 1 Tablet(s) Oral QD 10/30/19 21 021 Inactive lisinopril 20 mg tablet RxNorm: 797266 Take 1 Tablet(s) Oral QD 10/23/19 21 021 Inactive lisinopril 20 mg tablet RxNorm: 816036 Take 1 Tablet(s) Oral QD 10/23/19 21 021 Inactive lisinopril 10 mg tablet RxNorm: 181961 Take 1 Tablet(s) Oral QD 10/02/19 21 021 Inactive icosapent ethyl 1 gram capsule RxNorm: 5685307 Take 2 Capsule(s) (2 gm) Oral BID with meals 09/12/19 21 022 Inactive Okay to dispense one 2gm tab if you have that available. icosapent ethyl 1 gram capsule RxNorm: 1715118 Take 2 Capsule(s) Oral BID 09/12/19 21 021 Inactive Okay to dispense one 2gm tab if you have that available. amlodipine 10 mg tablet RxNorm: 997162 Take 1 Tablet(s) Oral QD 09/04/19 21 022 Inactive aspirin 81 mg tablet,delayed release RxNorm: 230949 Take 1 Tablet(s) Oral QD 09/04/19 21 021 Inactive Levemir FlexTouch U-100 Insulin 100 unit/mL (3 mL) subcutaneous pen RxNorm: 278732 Inject 150 Unit(s) Subcutaneous BID 04 Inactive venlafaxine ER 150 mg tablet,extended release 24 hr RxNorm: 551235 Take 1 Tablet(s) Oral QD 09/04/19 Inactive clotrimazole-betame thasone 1 %-0.05 % topical cream RxNorm: 732162 Apply to rash on red area on left abdomen/chest Topical BID 08/10/19 21 Inactive amlodipine 5 mg tablet RxNorm: 526430 Take 1 Tablet(s) Oral QD 07/31/19 Inactive cephalexin 500 mg tablet RxNorm: 855281 Take 1 Tablet(s) Oral BID BID - Twice Daily 07/31/19 Inactive Start 08/01/20 pantoprazole 40 mg tablet,delayed release RxNorm: 401811 Take 1 Tablet(s) Oral QAM every morning 07/08/19 Inactive clopidogrel 75 mg tablet RxNorm: 798286 Take 1 Tablet(s) Oral QD 07/08/19 Inactive senna 8.6 mg tablet RxNorm: 396722 Take 1 Tablet(s) Oral QD 07/08/19 Inactive Novolog Flexpen U-100 Insulin aspart 100 unit/mL (3 mL) subcutaneous RxNorm: 5740066 Administer per sliding scale Milliliter(s) Subcutaneous TID 151-200: 10 u; 201-250: 20 u; 251-300: 30 u; 301-350: 40 u; 351-400: 50 u. 07/08/19 Inactive Novolog Flexpen U-100 Insulin aspart 100 unit/mL (3 mL) subcutaneous RxNorm: 1056584 Inject 85 Unit(s) Subcutaneous TID 07/08/19 Inactive pravastatin 80 mg tablet RxNorm: 550448 Take 1 Tablet(s) Oral QHS every night at bedtime 07/08/19 Inactive clotrimazole 1 % topical cream RxNorm: 113585 Apply to bilateral groin areas Topical BID 07/08/19 21 Inactive carbamazepine 200 mg tablet RxNorm: 852122 Take 1 Tablet(s) Oral BID 07/08/19 022 Inactive torsemide 20 mg tablet RxNorm: 572992 Take 1 Tablet(s) Oral QD 07/08/19 023 Inactive Blood Glucose Test strips RxNorm: Use 1 Test Strip QID at PRN 07/08/19 21 021 Inactive E11.42 lisinopril 5 mg tablet RxNorm: 515206 Take 1 Tablet(s) Oral QD 07/08/19 021 Inactive metoprolol succinate ER 200 mg tablet,extended release 24 hr RxNorm: 515621 Take 1 Tablet(s) Oral QD 07/08/19 021 Inactive Vitamin D3 25 mcg (1,000 unit) tablet RxNorm: 963796 Take 1 Tablet(s) Oral QD 07/08/19 021 Inactive isosorbide dinitrate 30 mg tablet RxNorm: 372871 Take 1 Tablet(s) Oral QD 07/08/19 021 Inactive Levemir FlexTouch U-100 Insulin 100 unit/mL (3 mL) subcutaneous pen RxNorm: 565707 Inject 140 Unit(s) Subcutaneous BID 07/08/19 021 Inactive venlafaxine 75 mg tablet RxNorm: 884142 Take 1 Tablet(s) Oral QD 07/08/19 021 Inactive acetaminophen 500 mg tablet RxNorm: 563928 Take 1 Tablet(s) Oral TID as needed for headache 06/18/19 021 Inactive acetaminophen 500 mg tablet RxNorm: 792518 Take 1 Tablet(s) Oral TID as needed for headache 06/18/19 021 Inactive Lyrica 100 mg capsule RxNorm: 945737 Take 1 Capsule(s) Oral QHS every night at bedtime 06/11/19 021 Inactive Lyrica 50 mg capsule RxNorm: 211188 Take 1 Capsule(s) Oral QAM every morning 06/10/19 21 021 Inactive hydrocortisone 2.5 % topical cream RxNorm: 201106 Apply to bilateral groin creases Topical BID 05/15/20 20 01/05/2 021 Inactive clotrimazole 1 % topical cream RxNorm: 794351 Apply to bilateral groin areas Topical BID 05/15/20 20 Inactive Lyrica 50 mg capsule RxNorm: 598610 Take 1 Capsule(s) Oral QAM every morning 05/14/20 20 Inactive Lyrica 100 mg capsule RxNorm: 127455 Take 1 Capsule(s) Oral QHS every night [...] Inactive Nystop 100,000 unit/gram topical powder RxNorm: 982561 Apply to abd folds, under breasts and L side of groin Topical BID x 14 days, then BID PRN 04/08/20 20 021 Inactive dx: yeast dermatitis Lyrica 100 mg capsule RxNorm: 556377 Take 1 Capsule(s) Oral QHS every night at bedtime 03/13/20 20 Inactive Lyrica 50 mg capsule RxNorm: 222598 Take 1 Capsule(s) Oral QAM every morning 03/13/20 20 Inactive ketoconazole 2 % shampoo RxNorm: 532818 Apply Topical two times a week with showers 03/11/20 20 Inactive cholecalciferol (vitamin D3) 50 mcg (2,000 unit) tablet RxNorm: 027043 Take 1 Tablet(s) Oral QD 03/11/20 20 Inactive Zetia 10 mg tablet RxNorm: 846932 Take 1 Tablet(s) Oral QD 03/07/20 20 021 Inactive Zetia 10 mg tablet RxNorm: 142274 Take 1 Tablet(s) Oral QD 03/07/20 Inactive Lyrica 50 mg capsule RxNorm: 873506 Take 1 Capsule(s) Oral QAM every morning 02/15/20 Inactive Lyrica 100 mg capsule RxNorm: 762175 Take 1 Capsule(s) Oral QHS every night at bedtime 02/15/20 Inactive Lyrica 100 mg capsule RxNorm: 445662 Take 1 Capsule(s) Oral QHS every night at bedtime 02/15/20 Inactive Lyrica 50 mg capsule RxNorm: 269863 Take 1 Capsule(s) Oral QAM every morning [...] Codes Status Date Referral: [facility] WPtel: [address], [address] [id number] [place] Referral Records Received 09/21/2022 Referral: [facility] WPtel: [address] [id number] [place] Referral Completed 05/28/2021 Referral: General Cardiology [...] a hospitalization 05/2021 he moved to the [facility] to have closer nursing attention. Sister Jyotsna involved in his care cell# [phone] Guardian: Don (tapan met in person 09/01/21), now has Lexii (same group as don)Lab Schedule: * 10/06/2022
--- OUTSIDE RECORDS SUMMARY | 2020-11-13 19:00 | XMS_ITS | CCD ---
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 Financial Operations Consultant Name Role Phone Tapan Shirley PA-C Primary Care Provider Unavailabl e Tapan Shirley PA-C Chronic Care Management Unavaila ble Summary Purpose DataExchange Insurance Providers Payer name Policy type / Coverage type Covered republican ID Effective Begin Date Effective End Date Medicare [place] Medicare Part B [id number] Unknown Unknown Medicaid [place] Medicare Part B [id number] Unknown Unknown Family history Runs in the family Diagnosis Age At Onset No Known Diseases N/A Social History Social History Element Codes Description Effec tive Dates Living arrangements Unknown [facility] 09/03/[address]: 8804548 Non-Smoker / No History of Smoking 09/02/[address]: 855761481 No Alcohol Consum ption 09/02/2020 Allergies, Adverse Reactions, Alerts Substance Reaction Codes Entered Date Inactivated Date Status LISINOPRIL RxNorm: 84443 02/12/2020 No Inactive Da te Active Metformin [...] 10/01/2020 Resolved Coronary artery disease invo lving [place] coronary artery of [place] heart, angina presence unspecified ICD-10: I25.10 ICD-9: 414.01 09/03/2020 Active Depression ICD-10: F32.9 ICD-9: 311 09/03/2020 Active Gout due to renal impairment ICD-10: M10 .30 ICD-9: 274.10 09/03/2020 Active Learning disability ICD-10: F81.9 ICD-9: 315.2 09/03/2020 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 icosapent ethyl 1 gram capsule RxNorm: 9341159 Take 2 Capsule(s) Oral BID 09/12/19 21 021 Inactive Okay to dispense one 2gm tab if you have that available. amlodipine 10 mg tablet RxNorm: 077682 Take 1 Tablet(s) Oral QD 09/04/19 21 022 Inactive aspirin 81 mg tablet,delayed release RxNorm: 195598 Take 1 Tablet(s) Oral QD 09/04/19 21 021 Inactive Levemir FlexTouch U-100 Insulin 100 unit/mL (3 mL) subcutaneous pen RxNorm: 906479 Inject 150 Unit(s) Subcutaneous BID 09/04/19 Inactive venlafaxine ER 150 mg tablet,extended release 24 hr RxNorm: 635135 Take 1 Tablet(s) Oral QD 09/04/19 Inactive clotrimazole-betame thasone 1 %-0.05 % topical cream RxNorm: 988061 Apply to rash on red area on left abdomen/chest Topical BID 08/10/19 Inactive amlodipine 5 mg tablet RxNorm: 476940 Take 1 Tablet(s) Oral QD 07/31/19 Inactive cephalexin 500 mg tablet RxNorm: 879106 Take 1 Tablet(s) Oral BID BID - Twice Daily 07/31/19 Inactive Start 08/01/20 pantoprazole 40 mg tablet,delayed release RxNorm: 369879 Take 1 Tablet(s) Oral QAM every morning 07/08/19 Inactive clopidogrel 75 mg tablet RxNorm: 057903 Take 1 Tablet(s) Oral QD 07/08/19 Inactive senna 8.6 mg tablet RxNorm: 162852 Take 1 Tablet(s) Oral QD 07/08/19 Inactive Novolog Flexpen U-100 Insulin aspart 100 unit/mL (3 mL) subcutaneous RxNorm: 6823660 Administer per sliding scale Milliliter(s) Subcutaneous TID 151-200: 10 u; 201-250: 20 u; 251-300: 30 u; 301-350: 40 u; 351-400: 50 u. 07/08/19 Inactive Novolog Flexpen U-100 Insulin aspart 100 unit/mL (3 mL) subcutaneous RxNorm: 3987602 Inject 85 Unit(s) Subcutaneous TID 07/08/19 Inactive pravastatin 80 mg tablet RxNorm: 058971 Take 1 Tablet(s) Oral QHS every night at bedtime 07/08/19 Inactive clotrimazole 1 % topical cream RxNorm: 434305 Apply to bilateral groin areas Topical BID 07/08/19 21 022 Inactive carbamazepine 200 mg tablet RxNorm: 535544 Take 1 Tablet(s) Oral BID 07/08/19 21 022 Inactive torsemide 20 mg tablet RxNorm: 868068 Take 1 Tablet(s) Oral QD 07/08/19 21 023 Inactive Blood Glucose Test strips RxNorm: Use 1 Test Strip QID at PRN 07/08/19 21 021 Inactive E11.42 lisinopril 5 mg tablet RxNorm: 626988 Take 1 Tablet(s) Oral QD 07/08/19 021 Inactive metoprolol succinate ER 200 mg tablet,extended release 24 hr RxNorm: 563097 Take 1 Tablet(s) Oral QD 07/08/19 021 Inactive Vitamin D3 25 mcg (1,000 unit) tablet RxNorm: 193791 Take 1 Tablet(s) Oral QD 07/08/19 021 Inactive isosorbide dinitrate 30 mg tablet RxNorm: 326537 Take 1 Tablet(s) Oral QD 07/08/19 021 Inactive Levemir FlexTouch U-100 Insulin 100 unit/mL (3 mL) subcutaneous pen RxNorm: 835358 Inject 140 Unit(s) Subcutaneous BID 07/08/19 021 Inactive venlafaxine 75 mg tablet RxNorm: 646519 Take 1 Tablet(s) Oral QD 07/08/19 021 Inactive acetaminophen 500 mg tablet RxNorm: 253763 Take 1 Tablet(s) Oral TID as needed for headache 06/18/19 021 Inactive acetaminophen 500 mg tablet RxNorm: 349405 Take 1 Tablet(s) Oral TID as needed for headache 06/18/19 021 Inactive Lyrica 100 mg capsule RxNorm: 062000 Take 1 Capsule(s) Oral QHS every night at bedtime 06/11/19 021 Inactive Lyrica 50 mg capsule RxNorm: 301409 Take 1 Capsule(s) Oral QAM every morning 06/10/19 21 01/26/2 021 Inactive hydrocortisone 2.5 % topical cream RxNorm: 981147 Apply to bilateral groin creases Topical BID 05/15/20 20 021 Inactive clotrimazole 1 % topical cream RxNorm: 753764 Apply to bilateral groin areas Topical BID 05/15/20 20 Inactive Lyrica 50 mg capsule RxNorm: 754491 Take 1 Capsule(s) Oral QAM every morning 05/14/20 20 Inactive Lyrica 100 mg capsule RxNorm: 496249 Take 1 Capsule(s) Oral QHS every night [...] Inactive Nystop 100,000 unit/gram topical powder RxNorm: 612885 Apply to abd folds, under breasts and L side of groin Topical BID x 14 days, then BID PRN 04/08/20 20 021 Inactive dx: yeast dermatitis Lyrica 100 mg capsule RxNorm: 058070 Take 1 Capsule(s) Oral QHS every night at bedtime 03/13/20 20 Inactive Lyrica 50 mg capsule RxNorm: 094966 Take 1 Capsule(s) Oral QAM every morning 03/13/20 20 Inactive ketoconazole 2 % shampoo RxNorm: 923460 Apply Topical two times a week with showers 03/11/20 20 Inactive cholecalciferol (vitamin D3) 50 mcg (2,000 unit) tablet RxNorm: 609646 Take 1 Tablet(s) Oral QD 03/11/20 Inactive Zetia 10 mg tablet RxNorm: 385752 Take 1 Tablet(s) Oral QD 03/07/20 20 021 Inactive Zetia 10 mg tablet RxNorm: 621970 Take 1 Tablet(s) Oral QD 03/07/20 Inactive Lyrica 50 mg capsule RxNorm: 077165 Take 1 Capsule(s) Oral QAM every morning 02/15/20 Inactive Lyrica 100 mg capsule RxNorm: 617445 Take 1 Capsule(s) Oral QHS every night at bedtime 02/15/20 Inactive Lyrica 100 mg capsule RxNorm: 302661 Take 1 Capsule(s) Oral QHS every night at bedtime 02/15/20 Inactive Lyrica 50 mg capsule RxNorm: 298399 Take 1 Capsule(s) Oral QAM every morning [...] Codes Status Date Referral: [facility] WPtel: [address], [address] [id number] Referral Records Received 09/21/2022 Referral: [facility] WPtel: [address] [id number] [place] Referral Completed 05/28/2021 Referral: General Cardiology Referral Complet ed 01/03/2021 Referral: General Psychologist Referral Close d Instructions Comment Date Leonid is a Male being seen living at [facility]. Initial BPS visit 01/2020. PMHx including DMII, CAD w/ 5 stents, Depression, Seizure Disorder and CKD stage 3. He moved into [facility] in 12/2019 but after a hospitalization 05/2021 he moved to the [facility] to have closer nursing attention. Sister Jyotsna involved in his care cell# [phone] Guardian: Don (tapan met in person 09/01/21), now has Lexii (same group as don)Lab Schedule: * 10/06/2022
--- OUTSIDE RECORDS SUMMARY | 2020-12-02 19:00 | XMS_ITS | CCD ---
Author Name Sandra Mandujano CNP Address [address] [place] [address] Phone Organization [facility] Phone Care Team Providers Care Vat Overhauler Name Role Phone Tapan Shirley PA-C Primary Care Provider Unavailabl e Tapan Shirley PA-C Chronic Care Management Unavaila ble Summary Purpose DataExchange Insurance Providers Payer name Policy type / Coverage type Covered constitution party ID Effective Begin Date Effective End Date Medicare [place] Medicare Part B [id number] Unknown Unknown [place] Medicare Part B [id number] Unknown Unknown Family history Runs in the family Diagnosis Age At Onset No Known Diseases N/A Social History Social History Element Codes Description Effec tive Dates Living arrangements Unknown Care Home 09/03/[address]: 8972035 Non-Smoker / No History of Smoking 09/02/[address]: 255588582 No Alcohol Consum ption 09/02/2020 Allergies, Adverse Reactions, Alerts Substance Reaction Codes Entered Date Inactivated Date Status LISINOPRIL RxNorm: 69637 02/12/2020 No Inactive Da te Active Metformin HCl Unknown 02/12/2020 No Inactive Cristiano e Active Problems Condition Codes Effective Dates Condition St atus Callus of heel ICD-10: L84 ICD-9: 700 12/03/2020 Active Coronary artery disease invo lving [place] coronary artery of [place] heart, angina presence unspecified ICD-10: I25.10 ICD-9: 414.01 12/03/2020 Active Other infective acute otitis externa of left ear ICD-10: H60.392 ICD-9: 380.10 12/03/2020 Active Tinea pedis ICD-10: B35.3 ICD-9: 110.4 12/03/2020 Active Candidiasis, intertrigo ICD-10: B37.2 ICD-9: 112.3 10/29/2020 [...] disease ICD-10: N18.32 ICD-9: 285.21 10/01/2020 Resolved Depression ICD-10: F32.9 ICD-9: 311 09/03/2020 Active [...] Instructions clotrimazole 1 % topical cream RxNorm: 177056 Apply to right foot and toes Topical BID 12/04/19 21 023 Inactive metoprolol succinate ER 200 mg tablet,extended release 24 hr RxNorm: 774572 Take 1 Tablet(s) Oral QD 12/04/19 21 023 Inactive ciprofloxacin 500 mg tablet RxNorm: 263221 Take 1 Tablet(s) Oral QD 11/30/19 21 021 Inactive DX ofloxacin otic drops Accu-Chek Guide test strips RxNorm: USE 1 TO CHECK GLUCOSE 4 TIMES DAILY AND NEEDED 11/15/19 21 023 Inactive Blood Glucose Test strips RxNorm: Use 1 Test Strip QID at PRN 11/05/19 21 023 Inactive E11.42 lisinopril 30 mg tablet RxNorm: 027816 Take 1 Tablet(s) Oral QD 10/30/19 21 021 Inactive lisinopril 20 mg tablet RxNorm: 661475 Take 1 Tablet(s) Oral QD 10/23/19 21 021 Inactive lisinopril 20 mg tablet RxNorm: 252094 Take 1 Tablet(s) Oral QD 10/23/19 21 021 Inactive lisinopril 10 mg tablet RxNorm: 361679 Take 1 Tablet(s) Oral QD 10/02/19 21 021 Inactive icosapent ethyl 1 gram capsule RxNorm: 1652337 Take 2 Capsule(s) (2 gm) Oral BID with meals 09/12/19 022 Inactive Okay to dispense one 2gm tab if you have that available. icosapent ethyl 1 gram capsule RxNorm: 3201461 Take 2 Capsule(s) Oral BID 09/12/19 021 Inactive Okay to dispense one 2gm tab if you have that available. amlodipine 10 mg tablet RxNorm: 660201 Take 1 Tablet(s) Oral QD 09/04/19 Inactive aspirin 81 mg tablet,delayed release RxNorm: 433428 Take 1 Tablet(s) Oral QD 09/04/19 21 Inactive Levemir FlexTouch U-100 Insulin 100 unit/mL (3 mL) subcutaneous pen RxNorm: 986085 Inject 150 Unit(s) Subcutaneous BID 09/04/19 Inactive venlafaxine ER 150 mg tablet,extended release 24 hr RxNorm: 618498 Take 1 Tablet(s) Oral QD 09/04/19 Inactive clotrimazole-betame thasone 1 %-0.05 % topical cream RxNorm: 424281 Apply to rash on red area on left abdomen/chest Topical BID 08/10/19 21 021 Inactive amlodipine 5 mg tablet RxNorm: 338507 Take 1 Tablet(s) Oral QD 07/31/19 21 Inactive cephalexin 500 mg tablet RxNorm: 731884 Take 1 Tablet(s) Oral BID BID - Twice Daily 07/31/19 21 021 Inactive Start 08/01/20 pantoprazole 40 mg tablet,delayed release RxNorm: 552902 Take 1 Tablet(s) Oral QAM every morning 07/08/19 21 022 Inactive clopidogrel 75 mg tablet RxNorm: 922104 Take 1 Tablet(s) Oral QD 07/08/19 21 021 Inactive senna 8.6 mg tablet RxNorm: 441482 Take 1 Tablet(s) Oral QD 07/08/19 21 022 Inactive Novolog Flexpen U-100 Insulin aspart 100 unit/mL (3 mL) subcutaneous RxNorm: 4802716 Administer per sliding scale Milliliter(s) Subcutaneous TID 151-200: 10 u; 201-250: 20 u; 251-300: 30 u; 301-350: 40 u; 351-400: 50 u. 07/08/19 21 022 Inactive Novolog Flexpen U-100 Insulin aspart 100 unit/mL (3 mL) subcutaneous RxNorm: 7079289 Inject 85 Unit(s) Subcutaneous TID 07/08/19 21 022 Inactive pravastatin 80 mg tablet RxNorm: 450276 Take 1 Tablet(s) Oral QHS every night at bedtime 07/08/19 022 Inactive clotrimazole 1 % topical cream RxNorm: 177035 Apply to bilateral groin areas Topical BID 07/08/19 21 022 Inactive carbamazepine 200 mg tablet RxNorm: 012732 Take 1 Tablet(s) Oral BID 07/08/19 21 022 Inactive torsemide 20 mg tablet RxNorm: 633547 Take 1 Tablet(s) Oral QD 07/08/19 21 023 Inactive Blood Glucose Test strips RxNorm: Use 1 Test Strip QID at PRN 07/08/19 21 021 Inactive E11.42 lisinopril 5 mg tablet RxNorm: 645166 Take 1 Tablet(s) Oral QD 07/08/19 21 021 Inactive metoprolol succinate ER 200 mg tablet,extended release 24 hr RxNorm: 336876 Take 1 Tablet(s) Oral QD 07/08/19 21 021 Inactive Vitamin D3 25 mcg (1,000 unit) tablet RxNorm: 884234 Take 1 Tablet(s) Oral QD 07/08/19 21 021 Inactive isosorbide dinitrate 30 mg tablet RxNorm: 580462 Take 1 Tablet(s) Oral QD 07/08/19 21 021 Inactive Levemir FlexTouch U-100 Insulin 100 unit/mL (3 mL) subcutaneous pen RxNorm: 179355 Inject 140 Unit(s) Subcutaneous BID 07/08/19 Inactive venlafaxine 75 mg tablet RxNorm: 216056 Take 1 Tablet(s) Oral QD 07/08/19 21 Inactive acetaminophen 500 mg tablet RxNorm: 608955 Take 1 Tablet(s) Oral TID as needed for headache 06/18/19 Inactive acetaminophen 500 mg tablet RxNorm: 153379 Take 1 Tablet(s) Oral TID as needed for headache 06/18/19 21 Inactive Lyrica 100 mg capsule RxNorm: 888627 Take 1 Capsule(s) Oral QHS every night at bedtime 06/11/19 21 021 Inactive Lyrica 50 mg capsule RxNorm: 170249 Take 1 Capsule(s) Oral QAM every morning 06/10/19 21 021 Inactive hydrocortisone 2.5 % topical cream RxNorm: 837053 Apply to bilateral groin creases Topical BID 05/15/20 20 021 Inactive clotrimazole 1 % topical cream RxNorm: 391889 Apply to bilateral groin areas Topical BID 05/15/20 20 021 Inactive Lyrica 50 mg capsule RxNorm: 831766 Take 1 Capsule(s) Oral QAM every morning 05/14/20 20 020 Inactive Lyrica 100 mg capsule RxNorm: 002733 Take 1 Capsule(s) Oral QHS every night [...] Inactive Nystop 100,000 unit/gram topical powder RxNorm: 500865 Apply to abd folds, under breasts and L side of groin Topical BID x 14 days, then BID PRN 04/08/20 20 Inactive dx: yeast dermatitis Lyrica 100 mg capsule RxNorm: 963926 Take 1 Capsule(s) Oral QHS every night at bedtime 03/13/20 20 Inactive Lyrica 50 mg capsule RxNorm: 391106 Take 1 Capsule(s) Oral QAM every morning 03/13/20 20 Inactive ketoconazole 2 % shampoo RxNorm: 807743 Apply Topical two times a week with showers 03/11/20 20 Inactive cholecalciferol (vitamin D3) 50 mcg (2,000 unit) tablet RxNorm: 534200 Take 1 Tablet(s) Oral QD 03/11/20 20 Inactive Zetia 10 mg tablet RxNorm: 481593 Take 1 Tablet(s) Oral QD 03/07/20 20 021 Inactive Zetia 10 mg tablet RxNorm: 058339 Take 1 Tablet(s) Oral QD 03/07/20 20 Inactive Lyrica 50 mg capsule RxNorm: 908477 Take 1 Capsule(s) Oral QAM every morning 02/15/20 20 Inactive Lyrica 100 mg capsule RxNorm: 294915 Take 1 Capsule(s) Oral QHS every night at bedtime 02/15/20 20 Inactive Lyrica 100 mg capsule RxNorm: 647250 Take 1 Capsule(s) Oral QHS every night at bedtime 02/15/20 20 Inactive Lyrica 50 mg capsule RxNorm: 013998 Take 1 Capsule(s) Oral QAM every morning [...] Date Referral: [facility] WPtel: [address] [facility], [address] [id number] [place] Referral Records Received 09/21/2022 Referral: [facility] WPtel: [address] [id number] [place] Referral Completed 05/28/2021 Referral: General Cardiology Referral Complet ed 01/03/2021 Patient Education: Patient M edication Summary Completed 12/03/2020 Referral: General Psychologist Referral Close d Instructions Comment Date Leonid is a Male being seen living [facility]. Initial BPS visit 01/2020. PMHx including DMII, CAD w/ 5 stents, Depression, Seizure Disorder and CKD stage 3. He moved into [facility] in 12/2019 but after a hospitalization 05/2021 he moved to the [facility] to have closer nursing attention. Sister Jyotsna involved in his care cell# [phone] Guardian: Don (tapan met in person 09/01/21), now has Lexii (same group as don)Lab Schedule: * 10/06/2022
--- OUTSIDE RECORDS SUMMARY | 2020-12-04 19:00 | XMS_ITS | CCD ---
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 Exceptional Children Teacher Name Role Phone Tapan Shirley PA-C Primary Care Provider Unavailabl e Tapan Shirley PA-C Chronic Care Management Unavaila ble Summary Purpose DataExchange Insurance Providers Payer name Policy type / Coverage type Covered green party ID Effective Begin Date Effective End Date Medicare [place] Medicare Part B [id number] Unknown Unknown Medicaid [place] Medicare Part B [id number] Unknown Unknown Family history Runs in the family Diagnosis Age At Onset No Known Diseases N/A Social History Social History Element Codes Description Effec tive Dates Living arrangements Unknown Longterm 09/03/[address]: 5325127 Non-Smoker / No History of Smoking 09/02/[address]: 958508447 No Alcohol Consum ption 09/02/2020 Allergies, Adverse Reactions, Alerts Substance Reaction Codes Entered Date Inactivated Date Status LISINOPRIL RxNorm: 09404 02/12/2020 No Inactive Da te Active Metformin HCl Unknown 02/12/2020 No Inactive Cristiano e Active Problems Condition Codes Effective Dates Condition St atus Callus of heel ICD-10: L84 ICD-9: 700 12/03/2020 Active Coronary artery disease invo lving [place] coronary artery of [place] heart, angina presence unspecified ICD-10: I25.10 ICD-9: [...] disability ICD-10: F81.9 ICD-9: 315.2 09/03/2020 Active detention (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 insulin ICD-10: Z79.4 09/03 [...] Instructions clotrimazole 1 % topical cream RxNorm: 360116 Apply to right foot and toes Topical BID 12/04/19 21 023 Inactive metoprolol succinate ER 200 mg tablet,extended release 24 hr RxNorm: 571897 Take 1 Tablet(s) Oral QD 12/04/19 21 023 Inactive ciprofloxacin 500 mg tablet RxNorm: 685022 Take 1 Tablet(s) Oral QD 11/30/19 21 021 Inactive DX ofloxacin otic drops Accu-Chek Guide test strips RxNorm: USE 1 TO CHECK GLUCOSE 4 TIMES DAILY AND NEEDED 11/15/19 21 023 Inactive Blood Glucose Test strips RxNorm: Use 1 Test Strip QID at PRN 11/05/19 21 023 Inactive E11.42 lisinopril 30 mg tablet RxNorm: 839194 Take 1 Tablet(s) Oral QD 10/30/19 21 021 Inactive lisinopril 20 mg tablet RxNorm: 466679 Take 1 Tablet(s) Oral QD 10/23/19 21 021 Inactive lisinopril 20 mg tablet RxNorm: 712443 Take 1 Tablet(s) Oral QD 10/23/19 21 021 Inactive lisinopril 10 mg tablet RxNorm: 535878 Take 1 Tablet(s) Oral QD 10/02/19 21 021 Inactive icosapent ethyl 1 gram capsule RxNorm: 6604521 Take 2 Capsule(s) (2 gm) Oral BID with meals 09/12/19 022 Inactive Okay to dispense one 2gm tab if you have that available. icosapent ethyl 1 gram capsule RxNorm: 1934722 Take 2 Capsule(s) Oral BID 09/12/19 021 Inactive Okay to dispense one 2gm tab if you have that available. amlodipine 10 mg tablet RxNorm: 784812 Take 1 Tablet(s) Oral QD 09/04/19 Inactive aspirin 81 mg tablet,delayed release RxNorm: 318840 Take 1 Tablet(s) Oral QD 09/04/19 21 Inactive Levemir FlexTouch U-100 Insulin 100 unit/mL (3 mL) subcutaneous pen RxNorm: 699845 Inject 150 Unit(s) Subcutaneous BID 09/04/19 Inactive venlafaxine ER 150 mg tablet,extended release 24 hr RxNorm: 371330 Take 1 Tablet(s) Oral QD 09/04/19 Inactive clotrimazole-betame thasone 1 %-0.05 % topical cream RxNorm: 587486 Apply to rash on red area on left abdomen/chest Topical BID 08/10/19 21 021 Inactive amlodipine 5 mg tablet RxNorm: 773084 Take 1 Tablet(s) Oral QD 07/31/19 21 Inactive cephalexin 500 mg tablet RxNorm: 275427 Take 1 Tablet(s) Oral BID BID - Twice Daily 07/31/19 21 021 Inactive Start 08/01/20 pantoprazole 40 mg tablet,delayed release RxNorm: 277157 Take 1 Tablet(s) Oral QAM every morning 07/08/19 21 022 Inactive clopidogrel 75 mg tablet RxNorm: 912112 Take 1 Tablet(s) Oral QD 07/08/19 21 021 Inactive senna 8.6 mg tablet RxNorm: 428047 Take 1 Tablet(s) Oral QD 07/08/19 21 022 Inactive Novolog Flexpen U-100 Insulin aspart 100 unit/mL (3 mL) subcutaneous RxNorm: 3233822 Administer per sliding scale Milliliter(s) Subcutaneous TID 151-200: 10 u; 201-250: 20 u; 251-300: 30 u; 301-350: 40 u; 351-400: 50 u. 07/08/19 21 022 Inactive Novolog Flexpen U-100 Insulin aspart 100 unit/mL (3 mL) subcutaneous RxNorm: 0601239 Inject 85 Unit(s) Subcutaneous TID 07/08/19 21 022 Inactive pravastatin 80 mg tablet RxNorm: 035005 Take 1 Tablet(s) Oral QHS every night at bedtime 07/08/19 022 Inactive clotrimazole 1 % topical cream RxNorm: 119828 Apply to bilateral groin areas Topical BID 07/08/19 21 022 Inactive carbamazepine 200 mg tablet RxNorm: 984641 Take 1 Tablet(s) Oral BID 07/08/19 21 022 Inactive torsemide 20 mg tablet RxNorm: 199514 Take 1 Tablet(s) Oral QD 07/08/19 21 023 Inactive Blood Glucose Test strips RxNorm: Use 1 Test Strip QID at PRN 07/08/19 21 021 Inactive E11.42 lisinopril 5 mg tablet RxNorm: 528666 Take 1 Tablet(s) Oral QD 07/08/19 21 021 Inactive metoprolol succinate ER 200 mg tablet,extended release 24 hr RxNorm: 822470 Take 1 Tablet(s) Oral QD 07/08/19 21 021 Inactive Vitamin D3 25 mcg (1,000 unit) tablet RxNorm: 025523 Take 1 Tablet(s) Oral QD 07/08/19 21 021 Inactive isosorbide dinitrate 30 mg tablet RxNorm: 561200 Take 1 Tablet(s) Oral QD 07/08/19 21 021 Inactive Levemir FlexTouch U-100 Insulin 100 unit/mL (3 mL) subcutaneous pen RxNorm: 401428 Inject 140 Unit(s) Subcutaneous BID 07/08/19 Inactive venlafaxine 75 mg tablet RxNorm: 639540 Take 1 Tablet(s) Oral QD 07/08/19 21 Inactive acetaminophen 500 mg tablet RxNorm: 746332 Take 1 Tablet(s) Oral TID as needed for headache 06/18/19 Inactive acetaminophen 500 mg tablet RxNorm: 756311 Take 1 Tablet(s) Oral TID as needed for headache 06/18/19 21 Inactive Lyrica 100 mg capsule RxNorm: 189001 Take 1 Capsule(s) Oral QHS every night at bedtime 06/11/19 21 021 Inactive Lyrica 50 mg capsule RxNorm: 706828 Take 1 Capsule(s) Oral QAM every morning 06/10/19 21 021 Inactive hydrocortisone 2.5 % topical cream RxNorm: 716131 Apply to bilateral groin creases Topical BID 05/15/20 20 021 Inactive clotrimazole 1 % topical cream RxNorm: 551198 Apply to bilateral groin areas Topical BID 05/15/20 20 021 Inactive Lyrica 50 mg capsule RxNorm: 842799 Take 1 Capsule(s) Oral QAM every morning 05/14/20 20 020 Inactive Lyrica 100 mg capsule RxNorm: 258583 Take 1 Capsule(s) Oral QHS every night [...] Inactive Nystop 100,000 unit/gram topical powder RxNorm: 212050 Apply to abd folds, under breasts and L side of groin Topical BID x 14 days, then BID PRN 04/08/20 20 Inactive dx: yeast dermatitis Lyrica 100 mg capsule RxNorm: 552746 Take 1 Capsule(s) Oral QHS every night at bedtime 03/13/20 20 Inactive Lyrica 50 mg capsule RxNorm: 215655 Take 1 Capsule(s) Oral QAM every morning 03/13/20 20 Inactive ketoconazole 2 % shampoo RxNorm: 537984 Apply Topical two times a week with showers 03/11/20 20 Inactive cholecalciferol (vitamin D3) 50 mcg (2,000 unit) tablet RxNorm: 660455 Take 1 Tablet(s) Oral QD 03/11/20 20 Inactive Zetia 10 mg tablet RxNorm: 769913 Take 1 Tablet(s) Oral QD 03/07/20 20 021 Inactive Zetia 10 mg tablet RxNorm: 789768 Take 1 Tablet(s) Oral QD 03/07/20 20 Inactive Lyrica 50 mg capsule RxNorm: 132826 Take 1 Capsule(s) Oral QAM every morning 02/15/20 20 Inactive Lyrica 100 mg capsule RxNorm: 941277 Take 1 Capsule(s) Oral QHS every night at bedtime 02/15/20 20 Inactive Lyrica 100 mg capsule RxNorm: 328683 Take 1 Capsule(s) Oral QHS every night at bedtime 02/15/20 20 Inactive Lyrica 50 mg capsule RxNorm: 332561 Take 1 Capsule(s) Oral QAM every morning [...] Encounter Performer Location Location Address Codes Date () DOMICIL VISIT EST PAT Diagnosis: Other infective acute otitis externa of left ear[ICD10: H60.392] Diagnosis: Coronary artery disease involving [place] coronary artery of [place] heart, angina presence unspecified[ICD1 0: I25.10] Diagnosis: Tinea pedis[ICD10: B35.3] Diagnosis: Callus of heel[ICD10: L84] Sandra Mandujano [facility] [address] [place] [address] CPT-4: 33881 12/03/2020 Plan of Care Planned Activity Notes Codes Status Date Referral: [facility] WPtel: [address], [address] [id number] [place] Referral Records Received 09/21/2022 Referral: [facility] WPtel: [address] [id number] [place] Referral Completed 05/28/2021 Referral: General Cardiology Referral Complet ed 01/03/2021 Patient Education: Patient M edication Summary Completed 12/03/2020 Patient Education: Influenza Vaccine Completed 12/03/2020 Referral: General Psychologist Referral Close d Instructions Comment Date Leonid is a Male being seen living at [facility]. Initial BPS visit 01/2020. PMHx including DMII, CAD w/ 5 stents, Depression, Seizure Disorder and CKD stage 3. He moved into [facility] in 12/2019 but after a hospitalization 05/2021 he moved to the [facility] to have closer nursing attention. Sister Jyotsna involved in his care cell# [phone] Guardian: Don (tapan met in person 09/01/21), now has Lexii (same group as don)Lab Schedule: * 10/06/2022 Callus of heel Once treatment for tinea pedis is done, soak the foot three days per week and then file the heel. Ischemic Heart Disease Requesting recent ER visit note Recommend cardiac stress test. Refer: Cardiology Tinea pedis Clotrimazole cream to right foot BID then do foot soak for callus. Other infective acute otitis externa of left ear Continue current treatments. . 12/03/2020
--- OUTSIDE RECORDS SUMMARY | 2020-12-22 19:00 | XMS_ITS | CCD ---
Author Name Akhil Guerrero MD Address [address] [place] [address] Phone Organization [facility] Phone Care Team Providers Care Cell Room Supervisor Name Role Phone Rosalina Shirley PA-C Primary Care Provider Unavailabl e Rosalina Shirley PA-C Chronic Care Management Unavaila ble Summary Purpose DataExchange Insurance Providers Payer name Policy type / Coverage type Covered green party ID Effective Begin Date Effective End Date Medicare [place] Medicare Part B [id number] Unknown Unknown Medicaid [place] Medicare Part B [id number] Unknown Unknown Family History Family History data not found Allergies, Adverse Reactions, Alerts Substance Reaction Codes Entered Date Inactivated Date Status LISINOPRIL RxNorm: 83743 02/12/2020 No Inactive Da te Active Metformin [...] palms ICD-10: L74.512 ICD-9: 705.21 05/15/2020 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-10: Z79.4 [...] 02/12/2020 Active Coronary artery disease invo lving eagle coronary artery of eagle heart, angina presence unspecified ICD-10: I25.10 ICD-9: [...] Fill Instructions acetaminophen 500 mg tablet RxNorm: 131120 Take 1 Tablet(s) Oral TID as needed for headache 1 021 Inactive acetaminophen 500 mg tablet RxNorm: 139894 Take 1 Tablet(s) Oral TID as needed for headache 1 021 Inactive Lyrica 100 mg capsule RxNorm: 566170 Take 1 Capsule(s) Oral QHS every night at bedtime 1 021 Inactive Lyrica 50 mg capsule RxNorm: 476269 Take 1 Capsule(s) Oral QAM every morning 1 021 Inactive hydrocortisone 2.5 % topical cream RxNorm: 589569 Apply to bilateral groin creases Topical BID 0 021 Inactive clotrimazole 1 % topical cream RxNorm: 426558 Apply to bilateral groin areas Topical BID 0 021 Inactive Lyrica 50 mg capsule RxNorm: 434499 Take 1 Capsule(s) Oral QAM every morning 0 020 Inactive Lyrica 100 mg capsule RxNorm: 943229 Take 1 Capsule(s) Oral QHS every night [...] Inactive Nystop 100,000 unit/gram topical powder RxNorm: 239432 Apply to abd folds, under breasts and L side of groin Topical BID x 14 days, then BID PRN 0 021 Inactive dx: yeast dermatitis Lyrica 100 mg capsule RxNorm: 410178 Take 1 Capsule(s) Oral QHS every night at bedtime 0 020 Inactive Lyrica 50 mg capsule RxNorm: 106324 Take 1 Capsule(s) Oral QAM every morning 0 020 Inactive ketoconazole 2 % shampoo RxNorm: 703018 Apply Topical two times a week with showers 0 Inactive cholecalciferol (vitamin D3) 50 mcg (2,000 unit) tablet RxNorm: 495953 Take 1 Tablet(s) Oral QD 0 Inactive Zetia 10 mg tablet RxNorm: 298168 Take 1 Tablet(s) Oral QD 0 Inactive Zetia 10 mg tablet RxNorm: 594762 Take 1 Tablet(s) Oral QD 0 Inactive Lyrica 50 mg capsule RxNorm: 091598 Take 1 Capsule(s) Oral QAM every morning 0 Inactive Lyrica 100 mg capsule RxNorm: 707409 Take 1 Capsule(s) Oral QHS every night at bedtime 0 Inactive Lyrica 100 mg capsule RxNorm: 718133 Take 1 Capsule(s) Oral QHS every night at bedtime 0 Inactive Lyrica 50 mg capsule RxNorm: 981028 Take 1 Capsule(s) Oral QAM every morning [...] Performer Location Location Address Codes Date () EST. PATIENT, LEVEL I w/ CS modifier Diagnosis: Contact with and (suspected) exposure to covid-19[ICD10: Z20.822] Akhil Guerrero [facility] [address] [place] [address] CPT-4: 45349 06/20/2020 Plan of Care Planned Activity Notes Codes Status Date Referral: [facility] WPtel: [address], [address] [id number] [place] Referral Records Received 09/21/2022 Referral: [facility] WPtel: [address] [id number] [place] Referral Completed 05/28/2021 Referral: General Cardiology Referral Complet ed 01/03/2021 Referral: General Psychologist Referral Close d Instructions Comment Date Leonid is a Male being seen living at [facility]. Initial BPS visit 01/2020. PMHx including DMII, CAD w/ 5 stents, Depression, Seizure Disorder and CKD stage 3. He moved into [facility] in 12/2019 but after a hospitalization 05/2021 he moved to the [facility] to have closer nursing attention. Sister Jyotsna involved in his care cell# [phone] Guardian: Don (rosalina met in person 09/01/21), now has Lexii (same group as don)Lab Schedule: * 10/06/2022
--- OUTSIDE RECORDS SUMMARY | 2020-12-23 19:00 | XMS_ITS | CCD ---
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 Lumber Cutter Name Role Phone Tapan Shirley PA-C Primary Care Provider Unavailabl e Tapan Shirley PA-C Chronic Care Management Unavaila ble Summary Purpose DataExchange Insurance Providers Payer name Policy type / Coverage type Covered libertarian ID Effective Begin Date Effective End Date Medicare [place] Medicare Part B [id number] Unknown Unknown Medicaid [place] Medicare Part B [id number] Unknown Unknown Family history Runs in the family Diagnosis Age At Onset No Known Diseases N/A Social History Social History Element Codes Description Effec tive Dates Living arrangements Unknown Long Term 09/03/[address]: 3485416 Non-Smoker / No History of Smoking 09/02/[address]: 757189695 No Alcohol Consum ption 09/02/2020 Allergies, Adverse Reactions, Alerts Substance Reaction Codes Entered Date Inactivated Date Status LISINOPRIL RxNorm: 36909 02/12/2020 No Inactive Da te Active Metformin HCl Unknown 02/12/2020 No Inactive Cristiano e Active Problems Condition Codes Effective Dates Condition St atus Callus of heel ICD-10: L84 ICD-9: 700 12/03/2020 Active Coronary artery disease invo lving red devil coronary artery of red devil heart, angina presence unspecified ICD-10: I25.10 ICD-9: [...] disability ICD-10: F81.9 ICD-9: 315.2 09/03/2020 Active FPC (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 insulin ICD-10: Z79.4 09/03 [...] Fill Instructions Lyrica 50 mg capsule RxNorm: 804705 Take 1 Capsule(s) Oral QAM every morning 12/24/19 21 021 Inactive Lyrica 100 mg capsule RxNorm: 515108 Take 1 Capsule(s) Oral QHS every night at bedtime 12/24/19 21 021 Inactive clotrimazole 1 % topical cream RxNorm: 374922 Apply to right foot and toes Topical BID 12/04/19 21 023 Inactive metoprolol succinate ER 200 mg tablet,extended release 24 hr RxNorm: 815684 Take 1 Tablet(s) Oral QD 12/04/19 21 023 Inactive ciprofloxacin 500 mg tablet RxNorm: 700870 Take 1 Tablet(s) Oral QD 11/30/19 21 021 Inactive DX ofloxacin otic drops Accu-Chek Guide test strips RxNorm: USE 1 TO CHECK GLUCOSE 4 TIMES DAILY AND NEEDED 11/15/19 21 023 Inactive Blood Glucose Test strips RxNorm: Use 1 Test Strip QID at PRN 11/05/19 21 023 Inactive E11.42 lisinopril 30 mg tablet RxNorm: 854908 Take 1 Tablet(s) Oral QD 10/30/19 21 021 Inactive lisinopril 20 mg tablet RxNorm: 610171 Take 1 Tablet(s) Oral QD 10/23/19 21 021 Inactive lisinopril 20 mg tablet RxNorm: 056119 Take 1 Tablet(s) Oral QD 10/23/19 21 021 Inactive lisinopril 10 mg tablet RxNorm: 186330 Take 1 Tablet(s) Oral QD 10/02/19 21 021 Inactive icosapent ethyl 1 gram capsule RxNorm: 7458876 Take 2 Capsule(s) (2 gm) Oral BID with meals 09/12/19 022 Inactive Okay to dispense one 2gm tab if you have that available. icosapent ethyl 1 gram capsule RxNorm: 8609777 Take 2 Capsule(s) Oral BID 09/12/19 021 Inactive Okay to dispense one 2gm tab if you have that available. amlodipine 10 mg tablet RxNorm: 520928 Take 1 Tablet(s) Oral QD 09/04/19 022 Inactive aspirin 81 mg tablet,delayed release RxNorm: 669975 Take 1 Tablet(s) Oral QD 09/04/19 21 021 Inactive Levemir FlexTouch U-100 Insulin 100 unit/mL (3 mL) subcutaneous pen RxNorm: 830212 Inject 150 Unit(s) Subcutaneous BID 09/04/19 21 022 Inactive venlafaxine ER 150 mg tablet,extended release 24 hr RxNorm: 815025 Take 1 Tablet(s) Oral QD 09/04/19 21 021 Inactive clotrimazole-betame thasone 1 %-0.05 % topical cream RxNorm: 709987 Apply to rash on red area on left abdomen/chest Topical BID 08/10/19 21 021 Inactive amlodipine 5 mg tablet RxNorm: 390223 Take 1 Tablet(s) Oral QD 07/31/19 21 021 Inactive cephalexin 500 mg tablet RxNorm: 898977 Take 1 Tablet(s) Oral BID BID - Twice Daily 07/31/19 21 021 Inactive Start 08/01/20 pantoprazole 40 mg tablet,delayed release RxNorm: 127593 Take 1 Tablet(s) Oral QAM every morning 07/08/19 022 Inactive clopidogrel 75 mg tablet RxNorm: 043659 Take 1 Tablet(s) Oral QD 07/08/19 021 Inactive senna 8.6 mg tablet RxNorm: 415531 Take 1 Tablet(s) Oral QD 07/08/19 022 Inactive Novolog Flexpen U-100 Insulin aspart 100 unit/mL (3 mL) subcutaneous RxNorm: 3484230 Administer per sliding scale Milliliter(s) Subcutaneous TID 151-200: 10 u; 201-250: 20 u; 251-300: 30 u; 301-350: 40 u; 351-400: 50 u. 07/08/19 022 Inactive Novolog Flexpen U-100 Insulin aspart 100 unit/mL (3 mL) subcutaneous RxNorm: 1035936 Inject 85 Unit(s) Subcutaneous TID 07/08/19 022 Inactive pravastatin 80 mg tablet RxNorm: 074791 Take 1 Tablet(s) Oral QHS every night at bedtime 07/08/19 022 Inactive clotrimazole 1 % topical cream RxNorm: 353297 Apply to bilateral groin areas Topical BID 07/08/19 022 Inactive carbamazepine 200 mg tablet RxNorm: 296457 Take 1 Tablet(s) Oral BID 07/08/19 022 Inactive torsemide 20 mg tablet RxNorm: 284303 Take 1 Tablet(s) Oral QD 07/08/19 21 023 Inactive Blood Glucose Test strips RxNorm: Use 1 Test Strip QID at PRN 07/08/19 21 021 Inactive E11.42 lisinopril 5 mg tablet RxNorm: 969548 Take 1 Tablet(s) Oral QD 07/08/19 021 Inactive metoprolol succinate ER 200 mg tablet,extended release 24 hr RxNorm: 001754 Take 1 Tablet(s) Oral QD 07/08/19 21 021 Inactive Vitamin D3 25 mcg (1,000 unit) tablet RxNorm: 897395 Take 1 Tablet(s) Oral QD 02 Inactive isosorbide dinitrate 30 mg tablet RxNorm: 167137 Take 1 Tablet(s) Oral QD 07/08/19 Inactive Levemir FlexTouch U-100 Insulin 100 unit/mL (3 mL) subcutaneous pen RxNorm: 865679 Inject 140 Unit(s) Subcutaneous BID 07/08/19 Inactive venlafaxine 75 mg tablet RxNorm: 982457 Take 1 Tablet(s) Oral QD 07/08/19 Inactive acetaminophen 500 mg tablet RxNorm: 046566 Take 1 Tablet(s) Oral TID as needed for headache 06/18/19 Inactive acetaminophen 500 mg tablet RxNorm: 526862 Take 1 Tablet(s) Oral TID as needed for headache 06/18/19 Inactive Lyrica 100 mg capsule RxNorm: 178018 Take 1 Capsule(s) Oral QHS every night at bedtime 06/11/19 021 Inactive Lyrica 50 mg capsule RxNorm: 466415 Take 1 Capsule(s) Oral QAM every morning 06/10/19 21 021 Inactive hydrocortisone 2.5 % topical cream RxNorm: 943187 Apply to bilateral groin creases Topical BID 05/15/20 20 021 Inactive clotrimazole 1 % topical cream RxNorm: 689770 Apply to bilateral groin areas Topical BID 05/15/20 20 021 Inactive Lyrica 50 mg capsule RxNorm: 496899 Take 1 Capsule(s) Oral QAM every morning 05/14/20 20 Inactive Lyrica 100 mg capsule RxNorm: 027975 Take 1 Capsule(s) Oral QHS every night [...] Inactive Nystop 100,000 unit/gram topical powder RxNorm: 281314 Apply to abd folds, under breasts and L side of groin Topical BID x 14 days, then BID PRN 04/08/20 20 Inactive dx: yeast dermatitis Lyrica 100 mg capsule RxNorm: 905575 Take 1 Capsule(s) Oral QHS every night at bedtime 03/13/20 20 Inactive Lyrica 50 mg capsule RxNorm: 527748 Take 1 Capsule(s) Oral QAM every morning 03/13/20 20 Inactive ketoconazole 2 % shampoo RxNorm: 969610 Apply Topical two times a week with showers 03/11/20 20 Inactive cholecalciferol (vitamin D3) 50 mcg (2,000 unit) tablet RxNorm: 445588 Take 1 Tablet(s) Oral QD 03/11/20 20 Inactive Zetia 10 mg tablet RxNorm: 621679 Take 1 Tablet(s) Oral QD 03/07/20 20 021 Inactive Zetia 10 mg tablet RxNorm: 320276 Take 1 Tablet(s) Oral QD 03/07/20 20 Inactive Lyrica 50 mg capsule RxNorm: 700660 Take 1 Capsule(s) Oral QAM every morning 02/15/20 20 Inactive Lyrica 100 mg capsule RxNorm: 642983 Take 1 Capsule(s) Oral QHS every night at bedtime 02/15/20 20 Inactive Lyrica 100 mg capsule RxNorm: 919759 Take 1 Capsule(s) Oral QHS every night at bedtime 10/01/ Inactive Lyrica 50 mg capsule RxNorm: 295367 Take 1 Capsule(s) Oral QAM every morning [...] Codes Status Date Referral: [facility] WPtel: [address], [address] [id number] [place] Referral Records Received 09/21/2022 Referral: [facility] WPtel: [address] [id number] [place] Referral Completed 05/28/2021 Referral: General Cardiology Referral Complet ed 01/03/2021 Referral: General Psychologist Referral Close d Instructions Comment Date Leonid is a Male being seen living at [facility]. Initial BPS visit 01/2020. PMHx including DMII, CAD w/ 5 stents, Depression, Seizure Disorder and CKD stage 3. He moved into [facility] in 12/2019 but after a hospitalization 05/2021 he moved to the [facility] to have closer nursing attention. Sister Jyotsna involved in his care cell# [phone] Guardian: Don (tapan met in person 09/01/21), now has Lexii (same group as don)Lab Schedule: * 10/06/2022
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
--- OUTSIDE RECORDS SUMMARY | 2021-02-25 19:00 | XMS_ITS | CCD ---
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 First Mate Name Role Phone Rosalina Shirley PA-C Primary Care Provider Unavailabl e Rosalina Shirley PA-C Chronic Care Management Unavaila ble Summary Purpose DataExchange Insurance Providers Payer name Policy type / Coverage type Covered democrat ID Effective Begin Date Effective End Date Medicare [place] Medicare Part B [id number] Unknown Unknown [place] Medicare Part B [id number] Unknown Unknown Family history Runs in the family Diagnosis Age At Onset No Known Diseases N/A Social History Social History Element Codes Description Effec tive Dates Living arrangements Unknown Intermediate 09/03/[address]: 8814960 Non-Smoker / No History of Smoking 09/02/[address]: 033358803 No Alcohol Consum ption 09/02/2020 Allergies, Adverse Reactions, Alerts Substance Reaction Codes Entered Date Inactivated Date Status LISINOPRIL RxNorm: 37759 02/12/2020 No Inactive Da te Active Metformin HCl Unknown 02/12/2020 No Inactive Cristiano e Active Problems Condition Codes Effective Dates Condition St atus Callus of heel ICD-10: L84 ICD-9: 700 02/10/2021 Active Coronary artery disease invo lving [place] coronary artery of [place] heart, angina presence unspecified ICD-10: I25.10 ICD-9: [...] ICD-10: M10 .30 ICD-9: 274.10 09/03/2020 Active 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 ICD-10: Z79.4 09/03 [...] Fill Instructions cephalexin 500 mg tablet RxNorm: 701286 Take 1 Tablet(s) Oral QID 02/27/20 21 021 Inactive cephalexin 500 mg tablet RxNorm: 244613 Take 1 Tablet(s) Oral QID 02/27/20 21 021 Inactive lisinopril 40 mg tablet RxNorm: 067572 Take 1 Tablet(s) Oral QD 02/11/20 21 023 Inactive Eliquis 5 mg tablet RxNorm: 8626320 Take 1 Tablet(s) Oral BID 01/05/20 21 022 Inactive Eliquis 5 mg tablet RxNorm: 8532668 Take 2 Tablet(s) Oral QD 01/01/20 21 021 Inactive Lyrica 50 mg capsule RxNorm: 326260 Take 1 Capsule(s) Oral QAM every morning 12/24/19 21 021 Inactive Lyrica 100 mg capsule RxNorm: 620157 Take 1 Capsule(s) Oral QHS every night at bedtime 12/24/19 21 021 Inactive clotrimazole 1 % topical cream RxNorm: 445291 Apply to right foot and toes Topical BID 12/04/19 21 023 Inactive metoprolol succinate ER 200 mg tablet,extended release 24 hr RxNorm: 068382 Take 1 Tablet(s) Oral QD 12/04/19 023 Inactive ciprofloxacin 500 mg tablet RxNorm: 015798 Take 1 Tablet(s) Oral QD 11/30/19 21 021 Inactive DX ofloxacin otic drops Accu-Chek Guide test strips RxNorm: USE 1 TO CHECK GLUCOSE 4 TIMES DAILY AND NEEDED 11/15/19 21 023 Inactive Blood Glucose Test strips RxNorm: Use 1 Test Strip QID at PRN 11/05/19 023 Inactive E11.42 lisinopril 30 mg tablet RxNorm: 375417 Take 1 Tablet(s) Oral QD 10/30/19 021 Inactive lisinopril 20 mg tablet RxNorm: 164290 Take 1 Tablet(s) Oral QD 10/23/19 21 021 Inactive lisinopril 20 mg tablet RxNorm: 740592 Take 1 Tablet(s) Oral QD 10/23/19 21 021 Inactive lisinopril 10 mg tablet RxNorm: 994115 Take 1 Tablet(s) Oral QD 10/02/19 021 Inactive icosapent ethyl 1 gram capsule RxNorm: 3355409 Take 2 Capsule(s) (2 gm) Oral BID with meals 09/12/19 022 Inactive Okay to dispense one 2gm tab if you have that available. icosapent ethyl 1 gram capsule RxNorm: 8675198 Take 2 Capsule(s) Oral BID 09/12/19 021 Inactive Okay to dispense one 2gm tab if you have that available. amlodipine 10 mg tablet RxNorm: 066778 Take 1 Tablet(s) Oral QD 09/04/19 21 022 Inactive Levemir FlexTouch U-100 Insulin 100 unit/mL (3 mL) subcutaneous pen RxNorm: 090416 Inject 150 Unit(s) Subcutaneous BID 09/04/19 21 Inactive venlafaxine ER 150 mg tablet,extended release 24 hr RxNorm: 562096 Take 1 Tablet(s) Oral QD 09/04/19 21 Inactive aspirin 81 mg tablet,delayed release RxNorm: 109408 Take 1 Tablet(s) Oral QD 09/04/19 Inactive clotrimazole-betame thasone 1 %-0.05 % topical cream RxNorm: 861167 Apply to rash on red area on left abdomen/chest Topical BID 08/10/19 21 Inactive amlodipine 5 mg tablet RxNorm: 280096 Take 1 Tablet(s) Oral QD 07/31/19 Inactive cephalexin 500 mg tablet RxNorm: 964239 Take 1 Tablet(s) Oral BID BID - Twice Daily 07/31/19 Inactive Start 08/01/20 pantoprazole 40 mg tablet,delayed release RxNorm: 173931 Take 1 Tablet(s) Oral QAM every morning 07/08/19 Inactive senna 8.6 mg tablet RxNorm: 382280 Take 1 Tablet(s) Oral QD 07/08/19 Inactive Novolog Flexpen U-100 Insulin aspart 100 unit/mL (3 mL) subcutaneous RxNorm: 7529766 Administer per sliding scale Milliliter(s) Subcutaneous TID 151-200: 10 u; 201-250: 20 u; 251-300: 30 u; 301-350: 40 u; 351-400: 50 u. 07/08/19 21 022 Inactive Novolog Flexpen U-100 Insulin aspart 100 unit/mL (3 mL) subcutaneous RxNorm: 7095893 Inject 85 Unit(s) Subcutaneous TID 07/08/19 022 Inactive pravastatin 80 mg tablet RxNorm: 287603 Take 1 Tablet(s) Oral QHS every night at bedtime 07/08/19 022 Inactive clotrimazole 1 % topical cream RxNorm: 358949 Apply to bilateral groin areas Topical BID 07/08/19 21 022 Inactive carbamazepine 200 mg tablet RxNorm: 776913 Take 1 Tablet(s) Oral BID 07/08/19 022 Inactive torsemide 20 mg tablet RxNorm: 655504 Take 1 Tablet(s) Oral QD 07/08/19 21 023 Inactive clopidogrel 75 mg tablet RxNorm: 081791 Take 1 Tablet(s) Oral QD 07/08/19 021 Inactive Blood Glucose Test strips RxNorm: Use 1 Test Strip QID at PRN 07/08/19 21 021 Inactive E11.42 lisinopril 5 mg tablet RxNorm: 279592 Take 1 Tablet(s) Oral QD 07/08/19 Inactive metoprolol succinate ER 200 mg tablet,extended release 24 hr RxNorm: 810658 Take 1 Tablet(s) Oral QD 07/08/19 021 Inactive Vitamin D3 25 mcg (1,000 unit) tablet RxNorm: 103738 Take 1 Tablet(s) Oral QD 07/08/19 021 Inactive isosorbide dinitrate 30 mg tablet RxNorm: 310473 Take 1 Tablet(s) Oral QD 07/08/19 021 Inactive Levemir FlexTouch U-100 Insulin 100 unit/mL (3 mL) subcutaneous pen RxNorm: 603292 Inject 140 Unit(s) Subcutaneous BID 07/08/19 021 Inactive venlafaxine 75 mg tablet RxNorm: 580877 Take 1 Tablet(s) Oral QD 07/08/19 021 Inactive acetaminophen 500 mg tablet RxNorm: 562876 Take 1 Tablet(s) Oral TID as needed for headache 06/18/19 021 Inactive acetaminophen 500 mg tablet RxNorm: 658300 Take 1 Tablet(s) Oral TID as needed for headache 06/18/19 021 Inactive Lyrica 100 mg capsule RxNorm: 384726 Take 1 Capsule(s) Oral QHS every night at bedtime 06/11/19 21 021 Inactive Lyrica 50 mg capsule RxNorm: 584582 Take 1 Capsule(s) Oral QAM every morning 06/10/19 21 021 Inactive hydrocortisone 2.5 % topical cream RxNorm: 094740 Apply to bilateral groin creases Topical BID 05/15/20 20 021 Inactive clotrimazole 1 % topical cream RxNorm: 322080 Apply to bilateral groin areas Topical BID 05/15/20 20 Inactive Lyrica 50 mg capsule RxNorm: 682039 Take 1 Capsule(s) Oral QAM every morning 05/14/20 20 020 Inactive Lyrica 100 mg capsule RxNorm: 939906 Take 1 Capsule(s) Oral QHS every night [...] Inactive Nystop 100,000 unit/gram topical powder RxNorm: 307990 Apply to abd folds, under breasts and L side of groin Topical BID x 14 days, then BID PRN 04/08/20 20 021 Inactive dx: yeast dermatitis Lyrica 100 mg capsule RxNorm: 684420 Take 1 Capsule(s) Oral QHS every night at bedtime 03/13/20 20 020 Inactive Lyrica 50 mg capsule RxNorm: 293070 Take 1 Capsule(s) Oral QAM every morning 03/13/20 20 Inactive ketoconazole 2 % shampoo RxNorm: 231977 Apply Topical two times a week with showers 03/11/20 20 Inactive cholecalciferol (vitamin D3) 50 mcg (2,000 unit) tablet RxNorm: 685003 Take 1 Tablet(s) Oral QD 03/11/20 Inactive Zetia 10 mg tablet RxNorm: 254307 Take 1 Tablet(s) Oral QD 03/07/20 Inactive Zetia 10 mg tablet RxNorm: 339146 Take 1 Tablet(s) Oral QD 03/07/20 Inactive Lyrica 50 mg capsule RxNorm: 174072 Take 1 Capsule(s) Oral QAM every morning 02/15/20 Inactive Lyrica 100 mg capsule RxNorm: 511407 Take 1 Capsule(s) Oral QHS every night at bedtime 02/15/20 Inactive Lyrica 100 mg capsule RxNorm: 598519 Take 1 Capsule(s) Oral QHS every night at bedtime 02/15/20 Inactive Lyrica 50 mg capsule RxNorm: 513501 Take 1 Capsule(s) Oral QAM every morning [...] Codes Status Date Referral: [facility] [place] [facility] WPtel: [address] [place], [address] [id number] [place] Referral Records Received 09/21/2022 Referral: [facility] WPtel: [address] [id number] [place] Referral Completed 05/28/2021 Referral: General Cardiology [...] Sister Jyotsna involved in his care cell# [phone] Guardian: Don (rosalina met in person 09/01/21), now has Lexii (same group as don)Lab Schedule: * 10/06/2022
--- OUTSIDE RECORDS SUMMARY | 2021-03-06 19:00 | XMS_ITS | CCD ---
Author Name Sandra Mandujano CNP Address [address] [place] [address] Phone Organization [facility] Phone Care Team Providers Care Automobile Upholsterer Apprentice Name Role Phone Tapan Shirley PA-C Primary Care Provider Unavailabl e Tapan Shirley PA-C Chronic Care Management Unavaila ble Summary Purpose DataExchange Insurance Providers Payer name Policy type / Coverage type Covered constitution party ID Effective Begin Date Effective End Date Medicare [place] Medicare Part B [id number] Unknown Unknown Medicaid [place] Medicare Part B [id number] Unknown Unknown Family history Runs in the family Diagnosis Age At Onset No Known Diseases N/A Social History Social History Element Codes Description Effec tive Dates Living arrangements Unknown Longterm 09/03/[address]: 8660716 Non-Smoker / No History of Smoking 09/02/[address]: 625068079 No Alcohol Consum ption 09/02/2020 Allergies, Adverse Reactions, Alerts Substance Reaction Codes Entered Date Inactivated Date Status LISINOPRIL RxNorm: 30256 02/12/2020 No Inactive Da te Active Metformin HCl Unknown 02/12/2020 No Inactive Cristiano e Active Problems Condition Codes Effective Dates Condition St atus Cellulitis ICD-10: L03.90 ICD-9: 682.9 03/03/2021 Active History of anemia due to CKD ICD-10: N18 .9 ICD-9: 585.9 03/03/2021 Active Hyperlipidemia associated wi th type 2 diabetes mellitus ICD-10: E11.69 ICD-9: 250.80 03/03/2021 Active Hypertension associated with diabetes ICD-10: E11.59 ICD-9: 250.80 03/03/2021 Active Seizure disorder ICD-10: G40.909 ICD-9: 345.90 03/03/2021 Active Skin tag ICD-10: L91.8 ICD-9: 701.9 03/03/2021 Active Stage 2 chronic kidney disea se due to type 2 diabetes mellitus ICD-10: E11.22 ICD-9: 250.40 03/03/2021 Active Stage 2 chronic kidney disease ICD-10: N 18.2 ICD-9: 585.2 03/03/2021 Active Type 2 diabetes mellitus wit h diabetic polyneuropathy, with long-term current use of insulin ICD-10: E11.42 ICD-9: 250.60 03/03/2021 Active Vitamin D deficiency ICD-10: E55.9 ICD-9: 268.9 03/03/2021 Active Callus of heel ICD-10: L84 ICD-9: 700 02/10/2021 Active Coronary artery disease invo lving [place] coronary artery of [place] heart, angina presence unspecified ICD-10: I25.10 ICD-9: 414.01 02/10/2021 Active DVT (deep venous thrombosis) ICD-10: I82 .409 ICD-9: 453.40 02/10/2021 Active Impacted cerumen, left ear ICD-10: [...] hypertension ICD-10: I15.9 ICD-9: 405.99 10/29/2020 Active Anemia due to stage 3b chron ic kidney disease ICD-10: N18.32 ICD-9: 285.21 10/01/2020 Resolved Depression ICD-10: F32.9 ICD-9: 311 09/03/2020 Active Gout due to renal impairment ICD-10: M10 .30 ICD-9: 274.10 09/03/2020 Active correction (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 insulin ICD-10: Z79.4 09/03 Active Lower extremity edema ICD-10: R60.0 ICD-9: 782.3 09/03/2020 Active Chronic kidney disease, stag e [...] Fill Instructions hydralazine 10 mg tablet RxNorm: 297865 Take 1 Tablet(s) Oral QID 03/03/20 21 021 Inactive cephalexin 500 mg tablet RxNorm: 420892 Take 1 Tablet(s) Oral QID 02/27/20 21 021 Inactive cephalexin 500 mg tablet RxNorm: 875562 Take 1 Tablet(s) Oral QID 02/27/20 21 021 Inactive lisinopril 40 mg tablet RxNorm: 557110 Take 1 Tablet(s) Oral QD 02/11/20 21 023 Inactive Eliquis 5 mg tablet RxNorm: 7410977 Take 1 Tablet(s) Oral BID 01/05/20 21 022 Inactive Eliquis 5 mg tablet RxNorm: 7437631 Take 2 Tablet(s) Oral QD 01/01/20 21 021 Inactive Lyrica 50 mg capsule RxNorm: 840334 Take 1 Capsule(s) Oral QAM every morning 12/24/19 21 021 Inactive Lyrica 100 mg capsule RxNorm: 881734 Take 1 Capsule(s) Oral QHS every night at bedtime 12/24/19 21 021 Inactive clotrimazole 1 % topical cream RxNorm: 030345 Apply to right foot and toes Topical BID 12/04/19 21 023 Inactive metoprolol succinate ER 200 mg tablet,extended release 24 hr RxNorm: 674556 Take 1 Tablet(s) Oral QD 12/04/19 21 023 Inactive ciprofloxacin 500 mg tablet RxNorm: 980244 Take 1 Tablet(s) Oral QD 11/30/19 21 021 Inactive DX ofloxacin otic drops Accu-Chek Guide test strips RxNorm: USE 1 TO CHECK GLUCOSE 4 TIMES DAILY AND NEEDED 11/15/19 21 023 Inactive Blood Glucose Test strips RxNorm: Use 1 Test Strip QID at PRN 11/05/19 21 023 Inactive E11.42 lisinopril 30 mg tablet RxNorm: 801366 Take 1 Tablet(s) Oral QD 10/30/19 021 Inactive lisinopril 20 mg tablet RxNorm: 165340 Take 1 Tablet(s) Oral QD 10/23/19 21 021 Inactive lisinopril 20 mg tablet RxNorm: 892640 Take 1 Tablet(s) Oral QD 10/23/19 21 021 Inactive lisinopril 10 mg tablet RxNorm: 697833 Take 1 Tablet(s) Oral QD 10/02/19 21 021 Inactive icosapent ethyl 1 gram capsule RxNorm: 5300131 Take 2 Capsule(s) (2 gm) Oral BID with meals 09/12/19 21 022 Inactive Okay to dispense one 2gm tab if you have that available. icosapent ethyl 1 gram capsule RxNorm: 4309152 Take 2 Capsule(s) Oral BID 09/12/19 21 Inactive Okay to dispense one 2gm tab if you have that available. amlodipine 10 mg tablet RxNorm: 216753 Take 1 Tablet(s) Oral QD 09/04/19 21 Inactive Levemir FlexTouch U-100 Insulin 100 unit/mL (3 mL) subcutaneous pen RxNorm: 046021 Inject 150 Unit(s) Subcutaneous BID 09/04/19 21 Inactive venlafaxine ER 150 mg tablet,extended release 24 hr RxNorm: 676328 Take 1 Tablet(s) Oral QD 09/04/19 21 Inactive aspirin 81 mg tablet,delayed release RxNorm: 479719 Take 1 Tablet(s) Oral QD 09/04/19 Inactive clotrimazole-betame thasone 1 %-0.05 % topical cream RxNorm: 530389 Apply to rash on red area on left abdomen/chest Topical BID 08/10/19 Inactive amlodipine 5 mg tablet RxNorm: 820651 Take 1 Tablet(s) Oral QD 07/31/19 Inactive cephalexin 500 mg tablet RxNorm: 032701 Take 1 Tablet(s) Oral BID BID - Twice Daily 07/31/19 21 021 Inactive Start 08/01/20 pantoprazole 40 mg tablet,delayed release RxNorm: 827024 Take 1 Tablet(s) Oral QAM every morning 07/08/19 022 Inactive senna 8.6 mg tablet RxNorm: 953722 Take 1 Tablet(s) Oral QD 07/08/19 022 Inactive Novolog Flexpen U-100 Insulin aspart 100 unit/mL (3 mL) subcutaneous RxNorm: 3834966 Administer per sliding scale Milliliter(s) Subcutaneous TID 151-200: 10 u; 201-250: 20 u; 251-300: 30 u; 301-350: 40 u; 351-400: 50 u. 07/08/19 21 022 Inactive Novolog Flexpen U-100 Insulin aspart 100 unit/mL (3 mL) subcutaneous RxNorm: 5801978 Inject 85 Unit(s) Subcutaneous TID 07/08/19 21 022 Inactive pravastatin 80 mg tablet RxNorm: 332042 Take 1 Tablet(s) Oral QHS every night at bedtime 07/08/19 022 Inactive clotrimazole 1 % topical cream RxNorm: 321494 Apply to bilateral groin areas Topical BID 07/08/19 21 022 Inactive carbamazepine 200 mg tablet RxNorm: 053703 Take 1 Tablet(s) Oral BID 07/08/19 022 Inactive torsemide 20 mg tablet RxNorm: 108251 Take 1 Tablet(s) Oral QD 07/08/19 21 023 Inactive clopidogrel 75 mg tablet RxNorm: 634786 Take 1 Tablet(s) Oral QD 07/08/19 021 Inactive Blood Glucose Test strips RxNorm: Use 1 Test Strip QID at PRN 07/08/19 21 021 Inactive E11.42 lisinopril 5 mg tablet RxNorm: 947843 Take 1 Tablet(s) Oral QD 07/08/19 021 Inactive metoprolol succinate ER 200 mg tablet,extended release 24 hr RxNorm: 437445 Take 1 Tablet(s) Oral QD 07/08/19 021 Inactive Vitamin D3 25 mcg (1,000 unit) tablet RxNorm: 599871 Take 1 Tablet(s) Oral QD 07/08/19 021 Inactive isosorbide dinitrate 30 mg tablet RxNorm: 373666 Take 1 Tablet(s) Oral QD 07/08/19 021 Inactive Levemir FlexTouch U-100 Insulin 100 unit/mL (3 mL) subcutaneous pen RxNorm: 152012 Inject 140 Unit(s) Subcutaneous BID 07/08/19 021 Inactive venlafaxine 75 mg tablet RxNorm: 107229 Take 1 Tablet(s) Oral QD 07/08/19 021 Inactive acetaminophen 500 mg tablet RxNorm: 367914 Take 1 Tablet(s) Oral TID as needed for headache 06/18/19 021 Inactive acetaminophen 500 mg tablet RxNorm: 800162 Take 1 Tablet(s) Oral TID as needed for headache 06/18/19 21 021 Inactive Lyrica 100 mg capsule RxNorm: 843471 Take 1 Capsule(s) Oral QHS every night at bedtime 06/11/19 21 021 Inactive Lyrica 50 mg capsule RxNorm: 384396 Take 1 Capsule(s) Oral QAM every morning 06/10/19 21 021 Inactive hydrocortisone 2.5 % topical cream RxNorm: 389703 Apply to bilateral groin creases Topical BID 05/15/20 20 021 Inactive clotrimazole 1 % topical cream RxNorm: 499770 Apply to bilateral groin areas Topical BID 05/15/20 20 021 Inactive Lyrica 50 mg capsule RxNorm: 482694 Take 1 Capsule(s) Oral QAM every morning 05/14/20 20 020 Inactive Lyrica 100 mg capsule RxNorm: 264026 Take 1 Capsule(s) Oral QHS every night [...] Inactive Nystop 100,000 unit/gram topical powder RxNorm: 050292 Apply to abd folds, under breasts and L side of groin Topical BID x 14 days, then BID PRN 04/08/20 20 021 Inactive dx: yeast dermatitis Lyrica 100 mg capsule RxNorm: 273549 Take 1 Capsule(s) Oral QHS every night at bedtime 03/13/20 20 Inactive Lyrica 50 mg capsule RxNorm: 729106 Take 1 Capsule(s) Oral QAM every morning 03/13/20 20 Inactive ketoconazole 2 % shampoo RxNorm: 907505 Apply Topical two times a week with showers 03/11/20 Inactive cholecalciferol (vitamin D3) 50 mcg (2,000 unit) tablet RxNorm: 299233 Take 1 Tablet(s) Oral QD 03/11/20 20 Inactive Zetia 10 mg tablet RxNorm: 231647 Take 1 Tablet(s) Oral QD 03/07/20 20 Inactive Zetia 10 mg tablet RxNorm: 996291 Take 1 Tablet(s) Oral QD 03/07/20 20 Inactive Lyrica 50 mg capsule RxNorm: 801379 Take 1 Capsule(s) Oral QAM every morning 02/15/20 20 Inactive Lyrica 100 mg capsule RxNorm: 931211 Take 1 Capsule(s) Oral QHS every night at bedtime 02/15/20 Inactive Lyrica 100 mg capsule RxNorm: 102479 Take 1 Capsule(s) Oral QHS every night at bedtime 02/15/20 20 Inactive Lyrica 50 mg capsule RxNorm: 213631 Take 1 Capsule(s) Oral QAM every morning [...] Codes Date REMOVE SKIN TAGS ADD-ON CPT-4: 44585 03/03/20 21 Reason For Visit No Reason For Visit data Encounters Encounter Performer Location Location Address Codes Date ([address]) DOMICIL VISIT EST PAT Diagnosis: History of anemia due to CKD[ICD10: [...] Diagnosis: Vitamin D deficiency[ICD10: E55.9] Diagnosis: Cellulitis[ICD10: L03.90] Sandra Mandujano [facility] [address] [place] [address] CPT-4: 48824 03/03/2021 Plan of Care Planned Activity Notes Codes Status Date Referral: [facility] WPtel: [address], [address] [id number] Referral Records Received 09/21/2022 Referral: [facility] WPtel: [address] [id number] [place] Referral Completed 05/28/2021 Patient Education: Patient M edication Summary Completed 03/03/2021 Patient Education: Influenza Vaccine Completed 03/03/2021 Referral: General Cardiology Referral Complet ed 01/03/2021 Referral: General Psychologist Referral Close d Instructions Comment Date Leonid is a Male being seen living at [facility]. Initial BPS visit 01/2020. PMHx including DMII, CAD w/ 5 stents, Depression, Seizure Disorder and CKD stage 3. He moved into [facility] in 12/2019 but after a hospitalization 05/2021 he moved to the [facility] to have closer nursing attention. Sister Jyotsna involved in his care cell# [phone] Guardian: Don (tapan met in person 09/01/21), now has Lexii (same group as don)Lab Schedule: * 10/06/2022 Diabetes Checking lipid panel and CMP. Checking A1C Adding hydralazine for treatment of resistant HTN. Would also recommend cardiology follow up if this does not improve BP readings. Cellulitis Finish course of Keflex. Chronic Kidney Disease Checking CBC Epilepsy Serum Carbamazepine Vitamin D Deficiency Checking vit D level Skin tag 3 skin tags on right upper arm/axilla treated with liquid nitrogen without complication. . 03/03/2021
--- OUTSIDE RECORDS SUMMARY | 2021-03-30 19:00 | XMS_ITS | CCD ---
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 Semiconductor Wafer Inspector Name Role Phone Tapan Shirley PA-C Primary Care Provider Unavailabl e Tapan Shirley PA-C Chronic Care Management Unavaila ble Summary Purpose DataExchange Insurance Providers Payer name Policy type / Coverage type Covered republican ID Effective Begin Date Effective End Date Medicare [place] Medicare Part B [id number] Unknown Unknown Medicaid [place] Medicare Part B [id number] Unknown Unknown Family history Runs in the family Diagnosis Age At Onset No Known Diseases N/A Social History Social History Element Codes Description Effec tive Dates Living arrangements Unknown Longterm 09/03/[address]: 4885664 Non-Smoker / No History of Smoking 09/02/[address]: 569663356 No Alcohol Consum ption 09/02/2020 Allergies, Adverse Reactions, Alerts Substance Reaction Codes Entered Date Inactivated Date Status LISINOPRIL RxNorm: 69453 02/12/2020 No Inactive Da te Active Metformin HCl Unknown 02/12/2020 No Inactive Cristiano e Active Problems Condition Codes Effective Dates Condition St atus DVT (deep venous thrombosis) ICD-10: I82 .409 ICD-9: 453.40 03/31/2021 Active Hyperlipidemia associated wi th type 2 diabetes mellitus ICD-10: E11.69 ICD-9: 250.80 03/31/2021 Active Hypertension associated with diabetes ICD-10: E11.59 ICD-9: 250.80 03/31/2021 Active Seizure disorder ICD-10: G40.909 ICD-9: 345.90 03/31/2021 Active Skin tag ICD-10: L91.8 ICD-9: 701.9 03/31/2021 Active Stage 2 chronic kidney disea se due to type 2 diabetes mellitus ICD-10: E11.22 ICD-9: 250.40 03/31/2021 Active Type 2 diabetes mellitus wit h diabetic polyneuropathy, with long-term current use of insulin ICD-10: E11.42 ICD-9: 250.60 03/31/2021 Active Vitamin D deficiency ICD-10: E55.9 ICD-9: 268.9 03/31/2021 Active Cellulitis ICD-10: L03.90 ICD-9: 682.9 03/03/2021 Active History of anemia due to CKD ICD-10: N18 .9 ICD-9: 585.9 03/03/2021 Active Stage 2 chronic kidney disease ICD-10: N 18.2 ICD-9: 585.2 03/03/2021 Active Callus of heel ICD-10: L84 ICD-9: 700 02/10/2021 Active Coronary artery disease invo [place]ving [place] coronary artery of [place] heart, angina presence unspecified ICD-10: I25.10 ICD-9: 414.01 02/10/2021 Active Impacted cerumen, left ear ICD-10: [...] ICD-10: M10 .30 ICD-9: 274.10 09/03/2020 Active longterm (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 insulin ICD-10: Z79.4 09/03 [...] Instructions aspirin 81 mg tablet,delayed release RxNorm: 207385 Take 1 Tablet(s) Oral QD 03/31/20 022 Inactive Vitamin D2 1,250 mcg (50,000 unit) capsule RxNorm: 6821150 Take 1 Capsule(s) Oral QW once a week x 12 weeks 03/31/20 022 Inactive Vitamin D2 1,250 mcg (50,000 unit) capsule RxNorm: 1860575 Take 1 Capsule(s) Oral QW once a week 03/31/20 021 Inactive Zetia 10 mg tablet RxNorm: 185772 Take 1 Tablet(s) Oral QD 03/31/20 022 Inactive Zetia 10 mg tablet RxNorm: 856327 Take 1 Tablet(s) Oral QD 03/31/20 021 Inactive hydralazine 25 mg tablet RxNorm: 681994 Take 1 Tablet(s) Oral QID 03/31/20 21 021 Inactive hydralazine 25 mg tablet RxNorm: 830805 Take 1 Tablet(s) Oral QID 03/31/20 021 Inactive hydralazine 10 mg tablet RxNorm: 979527 Take 1 Tablet(s) Oral QID 03/03/20 021 Inactive cephalexin 500 mg tablet RxNorm: 452970 Take 1 Tablet(s) Oral QID 02/27/20 021 Inactive cephalexin 500 mg tablet RxNorm: 333500 Take 1 Tablet(s) Oral QID 02/27/20 021 Inactive lisinopril 40 mg tablet RxNorm: 558983 Take 1 Tablet(s) Oral QD 02/11/20 023 Inactive Eliquis 5 mg tablet RxNorm: 1995586 Take 1 Tablet(s) Oral BID 01/05/20 022 Inactive Eliquis 5 mg tablet RxNorm: 9988205 Take 2 Tablet(s) Oral QD 01/01/20 21 021 Inactive Lyrica 50 mg capsule RxNorm: 660991 Take 1 Capsule(s) Oral QAM every morning 12/24/19 021 Inactive Lyrica 100 mg capsule RxNorm: 025151 Take 1 Capsule(s) Oral QHS every night at bedtime 12/24/19 021 Inactive clotrimazole 1 % topical cream RxNorm: 636024 Apply to right foot and toes Topical BID 12/04/19 21 023 Inactive metoprolol succinate ER 200 mg tablet,extended release 24 hr RxNorm: 251182 Take 1 Tablet(s) Oral QD 12/04/19 023 Inactive ciprofloxacin 500 mg tablet RxNorm: 271626 Take 1 Tablet(s) Oral QD 11/30/19 21 021 Inactive DX ofloxacin otic drops Accu-Chek Guide test strips RxNorm: USE 1 TO CHECK GLUCOSE 4 TIMES DAILY AND NEEDED 11/15/19 21 023 Inactive Blood Glucose Test strips RxNorm: Use 1 Test Strip QID at PRN 11/05/19 21 023 Inactive E11.42 lisinopril 30 mg tablet RxNorm: 193662 Take 1 Tablet(s) Oral QD 10/30/19 Inactive lisinopril 20 mg tablet RxNorm: 375024 Take 1 Tablet(s) Oral QD 10/23/19 21 021 Inactive lisinopril 20 mg tablet RxNorm: 223811 Take 1 Tablet(s) Oral QD 10/23/19 21 021 Inactive lisinopril 10 mg tablet RxNorm: 096417 Take 1 Tablet(s) Oral QD 10/02/19 021 Inactive icosapent ethyl 1 gram capsule RxNorm: 1359132 Take 2 Capsule(s) (2 gm) Oral BID with meals 09/12/19 022 Inactive Okay to dispense one 2gm tab if you have that available. icosapent ethyl 1 gram capsule RxNorm: 4773065 Take 2 Capsule(s) Oral BID 09/12/19 021 Inactive Okay to dispense one 2gm tab if you have that available. amlodipine 10 mg tablet RxNorm: 171452 Take 1 Tablet(s) Oral QD 09/04/19 022 Inactive Levemir FlexTouch U-100 Insulin 100 unit/mL (3 mL) subcutaneous pen RxNorm: 806618 Inject 150 Unit(s) Subcutaneous BID 09/04/19 022 Inactive venlafaxine ER 150 mg tablet,extended release 24 hr RxNorm: 775193 Take 1 Tablet(s) Oral QD 09/04/19 21 021 Inactive aspirin 81 mg tablet,delayed release RxNorm: 377257 Take 1 Tablet(s) Oral QD 09/04/19 Inactive clotrimazole-betame thasone 1 %-0.05 % topical cream RxNorm: 008332 Apply to rash on red area on left abdomen/chest Topical BID 08/10/19 21 Inactive amlodipine 5 mg tablet RxNorm: 017025 Take 1 Tablet(s) Oral QD 07/31/19 21 021 Inactive cephalexin 500 mg tablet RxNorm: 137067 Take 1 Tablet(s) Oral BID BID - Twice Daily 07/31/19 21 021 Inactive Start 08/01/20 pantoprazole 40 mg tablet,delayed release RxNorm: 808654 Take 1 Tablet(s) Oral QAM every morning 07/08/19 022 Inactive senna 8.6 mg tablet RxNorm: 156062 Take 1 Tablet(s) Oral QD 07/08/19 022 Inactive Novolog Flexpen U-100 Insulin aspart 100 unit/mL (3 mL) subcutaneous RxNorm: 7257598 Administer per sliding scale Milliliter(s) Subcutaneous TID 151-200: 10 u; 201-250: 20 u; 251-300: 30 u; 301-350: 40 u; 351-400: 50 u. 07/08/19 022 Inactive Novolog Flexpen U-100 Insulin aspart 100 unit/mL (3 mL) subcutaneous RxNorm: 0693647 Inject 85 Unit(s) Subcutaneous TID 07/08/19 022 Inactive pravastatin 80 mg tablet RxNorm: 122964 Take 1 Tablet(s) Oral QHS every night at bedtime 07/08/19 022 Inactive clotrimazole 1 % topical cream RxNorm: 815618 Apply to bilateral groin areas Topical BID 07/08/19 022 Inactive carbamazepine 200 mg tablet RxNorm: 014669 Take 1 Tablet(s) Oral BID 07/08/19 022 Inactive torsemide 20 mg tablet RxNorm: 009250 Take 1 Tablet(s) Oral QD 07/08/19 21 023 Inactive clopidogrel 75 mg tablet RxNorm: 312491 Take 1 Tablet(s) Oral QD 07/08/19 021 Inactive Blood Glucose Test strips RxNorm: Use 1 Test Strip QID at PRN 07/08/19 21 021 Inactive E11.42 lisinopril 5 mg tablet RxNorm: 629095 Take 1 Tablet(s) Oral QD 07/08/19 021 Inactive metoprolol succinate ER 200 mg tablet,extended release 24 hr RxNorm: 259503 Take 1 Tablet(s) Oral QD 07/08/19 Inactive Vitamin D3 25 mcg (1,000 unit) tablet RxNorm: 335485 Take 1 Tablet(s) Oral QD 07/08/19 Inactive isosorbide dinitrate 30 mg tablet RxNorm: 464781 Take 1 Tablet(s) Oral QD 07/08/19 Inactive Levemir FlexTouch U-100 Insulin 100 unit/mL (3 mL) subcutaneous pen RxNorm: 336610 Inject 140 Unit(s) Subcutaneous BID 07/08/19 Inactive venlafaxine 75 mg tablet RxNorm: 627197 Take 1 Tablet(s) Oral QD 07/08/19 Inactive acetaminophen 500 mg tablet RxNorm: 865112 Take 1 Tablet(s) Oral TID as needed for headache 06/18/19 Inactive acetaminophen 500 mg tablet RxNorm: 215903 Take 1 Tablet(s) Oral TID as needed for headache 06/18/19 Inactive Lyrica 100 mg capsule RxNorm: 773690 Take 1 Capsule(s) Oral QHS every night at bedtime 06/11/19 Inactive Lyrica 50 mg capsule RxNorm: 112748 Take 1 Capsule(s) Oral QAM every morning 06/10/19 021 Inactive hydrocortisone 2.5 % topical cream RxNorm: 653668 Apply to bilateral groin creases Topical BID 05/15/20 20 021 Inactive clotrimazole 1 % topical cream RxNorm: 225237 Apply to bilateral groin areas Topical BID 05/15/20 20 021 Inactive Lyrica 50 mg capsule RxNorm: 698432 Take 1 Capsule(s) Oral QAM every morning 05/14/20 20 Inactive Lyrica 100 mg capsule RxNorm: 055455 Take 1 Capsule(s) Oral QHS every night at bedtime 05/14/20 20 Inactive Blood Glucose Monitoring kit RxNorm: Use as directed QID and PRN 04/24/20 20 01/07/2 021 Inactive Lancets,Thin 28 gauge RxNorm: Use [...] Inactive Nystop 100,000 unit/gram topical powder RxNorm: 783120 Apply to abd folds, under breasts and L side of groin Topical BID x 14 days, then BID PRN 04/08/20 20 021 Inactive dx: yeast dermatitis Lyrica 100 mg capsule RxNorm: 359265 Take 1 Capsule(s) Oral QHS every night at bedtime 03/13/20 20 Inactive Lyrica 50 mg capsule RxNorm: 125723 Take 1 Capsule(s) Oral QAM every morning 03/13/20 20 Inactive ketoconazole 2 % shampoo RxNorm: 601569 Apply Topical two times a week with showers 03/11/20 20 Inactive cholecalciferol (vitamin D3) 50 mcg (2,000 unit) tablet RxNorm: 486254 Take 1 Tablet(s) Oral QD 03/11/20 20 021 Inactive Zetia 10 mg tablet RxNorm: 933252 Take 1 Tablet(s) Oral QD 03/07/20 20 021 Inactive Zetia 10 mg tablet RxNorm: 292284 Take 1 Tablet(s) Oral QD 03/07/20 20 Inactive Lyrica 50 mg capsule RxNorm: 280750 Take 1 Capsule(s) Oral QAM every morning 02/15/20 20 Inactive Lyrica 100 mg capsule RxNorm: 365748 Take 1 Capsule(s) Oral QHS every night at bedtime 02/15/20 20 Inactive Lyrica 100 mg capsule RxNorm: 686334 Take 1 Capsule(s) Oral QHS every night at bedtime 02/15/20 20 Inactive Lyrica 50 mg capsule RxNorm: 582180 Take 1 Capsule(s) Oral QAM every morning [...] Referral: [facility] WPtel: [address], [address] [id number] [place] Referral Records Received 09/21/2022 Referral: [facility] WPtel: [address] [id number] [place] Referral Completed 05/28/2021 Referral: General Cardiology Referral Complet ed 01/03/2021 Referral: General Psychologist Referral Close d Instructions Comment Date Leonid is a Male being seen living at [facility]. Initial BPS visit 01/2020. PMHx including DMII, CAD w/ 5 stents, Depression, Seizure Disorder and CKD stage 3. He moved into [facility] in 12/2019 but after a hospitalization 05/2021 he moved to the [facility] to have closer nursing attention. Sister Jyotsna involved in his care cell# [phone] Guardian: Don (tapan met in person 09/01/21), now has Lexii (same group as don)Lab Schedule: * 10/06/2022
--- OUTSIDE RECORDS SUMMARY | 2021-03-30 19:00 | XMS_ITS | CCD ---
Author Name Sandra Mandujano CNP Address [address] [facility] [address] [place] [address] Phone Organization [facility] Phone Care Team Providers Care Senior Linux Engineer Name Role Phone Tapan Shirley PA-C Primary Care Provider Unavailabl e Tapan Shirley PA-C Chronic Care Management Unavaila ble Summary Purpose DataExchange Insurance Providers Payer name Policy type / Coverage type Covered republican ID Effective Begin Date Effective End Date Medicare [place] Medicare Part B [id number] Unknown Unknown Medicaid [place] Medicare Part B [id number] Unknown Unknown Family history Runs in the family Diagnosis Age At Onset No Known Diseases N/A Social History Social History Element Codes Description Effec tive Dates Living arrangements Unknown [facility] 09/03/[address]: 5760993 Non-Smoker / No History of Smoking 09/02/[address]: 017976867 No Alcohol Consum ption 09/02/2020 Allergies, Adverse Reactions, Alerts Substance Reaction Codes Entered Date Inactivated Date Status LISINOPRIL RxNorm: 96136 02/12/2020 No Inactive Da te Active Metformin [...] 02/10/2021 Active Coronary artery disease invo lving [place] coronary artery of [place] heart, angina presence unspecified ICD-10: I25.10 ICD-9: [...] ICD-10: M10 .30 ICD-9: 274.10 09/03/2020 Active prison (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 insulin ICD-10: Z79.4 09/03 [...] Instructions aspirin 81 mg tablet,delayed release RxNorm: 445611 Take 1 Tablet(s) Oral QD 03/31/20 022 Inactive Vitamin D2 1,250 mcg (50,000 unit) capsule RxNorm: 5558949 Take 1 Capsule(s) Oral QW once a week x 12 weeks 03/31/20 022 Inactive Vitamin D2 1,250 mcg (50,000 unit) capsule RxNorm: 5007511 Take 1 Capsule(s) Oral QW once a week 03/31/20 021 Inactive Zetia 10 mg tablet RxNorm: 341510 Take 1 Tablet(s) Oral QD 03/31/20 022 Inactive Zetia 10 mg tablet RxNorm: 187990 Take 1 Tablet(s) Oral QD 03/31/20 021 Inactive hydralazine 25 mg tablet RxNorm: 467433 Take 1 Tablet(s) Oral QID 03/31/20 021 Inactive hydralazine 25 mg tablet RxNorm: 619914 Take 1 Tablet(s) Oral QID 03/31/20 021 Inactive hydralazine 10 mg tablet RxNorm: 141837 Take 1 Tablet(s) Oral QID 03/03/20 021 Inactive cephalexin 500 mg tablet RxNorm: 044460 Take 1 Tablet(s) Oral QID 02/27/20 021 Inactive cephalexin 500 mg tablet RxNorm: 250087 Take 1 Tablet(s) Oral QID 02/27/20 021 Inactive lisinopril 40 mg tablet RxNorm: 949312 Take 1 Tablet(s) Oral QD 02/11/20 023 Inactive Eliquis 5 mg tablet RxNorm: 1231623 Take 1 Tablet(s) Oral BID 01/05/20 022 Inactive Eliquis 5 mg tablet RxNorm: 7636406 Take 2 Tablet(s) Oral QD 01/01/20 21 021 Inactive Lyrica 50 mg capsule RxNorm: 984455 Take 1 Capsule(s) Oral QAM every morning 12/24/19 021 Inactive Lyrica 100 mg capsule RxNorm: 935108 Take 1 Capsule(s) Oral QHS every night at bedtime 12/24/19 021 Inactive clotrimazole 1 % topical cream RxNorm: 171475 Apply to right foot and toes Topical BID 12/04/19 21 023 Inactive metoprolol succinate ER 200 mg tablet,extended release 24 hr RxNorm: 928406 Take 1 Tablet(s) Oral QD 12/04/19 21 023 Inactive ciprofloxacin 500 mg tablet RxNorm: 074238 Take 1 Tablet(s) Oral QD 11/30/19 21 021 Inactive DX ofloxacin otic drops Accu-Chek Guide test strips RxNorm: USE 1 TO CHECK GLUCOSE 4 TIMES DAILY AND NEEDED 11/15/19 21 023 Inactive Blood Glucose Test strips RxNorm: Use 1 Test Strip QID at PRN 11/05/19 21 023 Inactive E11.42 lisinopril 30 mg tablet RxNorm: 794609 Take 1 Tablet(s) Oral QD 10/30/19 021 Inactive lisinopril 20 mg tablet RxNorm: 184140 Take 1 Tablet(s) Oral QD 10/23/19 021 Inactive lisinopril 20 mg tablet RxNorm: 431608 Take 1 Tablet(s) Oral QD 10/23/19 21 021 Inactive lisinopril 10 mg tablet RxNorm: 744166 Take 1 Tablet(s) Oral QD 10/02/19 21 021 Inactive icosapent ethyl 1 gram capsule RxNorm: 6878718 Take 2 Capsule(s) (2 gm) Oral BID with meals 09/12/19 022 Inactive Okay to dispense one 2gm tab if you have that available. icosapent ethyl 1 gram capsule RxNorm: 1513778 Take 2 Capsule(s) Oral BID 09/12/19 021 Inactive Okay to dispense one 2gm tab if you have that available. amlodipine 10 mg tablet RxNorm: 765858 Take 1 Tablet(s) Oral QD 09/04/19 022 Inactive Levemir FlexTouch U-100 Insulin 100 unit/mL (3 mL) subcutaneous pen RxNorm: 318482 Inject 150 Unit(s) Subcutaneous BID 09/04/19 21 022 Inactive venlafaxine ER 150 mg tablet,extended release 24 hr RxNorm: 077448 Take 1 Tablet(s) Oral QD 09/04/19 21 021 Inactive aspirin 81 mg tablet,delayed release RxNorm: 004563 Take 1 Tablet(s) Oral QD 09/04/19 21 021 Inactive clotrimazole-betame thasone 1 %-0.05 % topical cream RxNorm: 535712 Apply to rash on red area on left abdomen/chest Topical BID 03/26/ 021 Inactive amlodipine 5 mg tablet RxNorm: 097787 Take 1 Tablet(s) Oral QD 07/31/19 Inactive cephalexin 500 mg tablet RxNorm: 092712 Take 1 Tablet(s) Oral BID BID - Twice Daily 07/31/19 21 021 Inactive Start 08/01/20 pantoprazole 40 mg tablet,delayed release RxNorm: 589331 Take 1 Tablet(s) Oral QAM every morning 07/08/19 022 Inactive senna 8.6 mg tablet RxNorm: 544680 Take 1 Tablet(s) Oral QD 07/08/19 022 Inactive Novolog Flexpen U-100 Insulin aspart 100 unit/mL (3 mL) subcutaneous RxNorm: 5435753 Administer per sliding scale Milliliter(s) Subcutaneous TID 151-200: 10 u; 201-250: 20 u; 251-300: 30 u; 301-350: 40 u; 351-400: 50 u. 07/08/19 022 Inactive Novolog Flexpen U-100 Insulin aspart 100 unit/mL (3 mL) subcutaneous RxNorm: 6795226 Inject 85 Unit(s) Subcutaneous TID 07/08/19 022 Inactive pravastatin 80 mg tablet RxNorm: 009925 Take 1 Tablet(s) Oral QHS every night at bedtime 07/08/19 022 Inactive clotrimazole 1 % topical cream RxNorm: 967742 Apply to bilateral groin areas Topical BID 07/08/19 022 Inactive carbamazepine 200 mg tablet RxNorm: 469688 Take 1 Tablet(s) Oral BID 07/08/19 022 Inactive torsemide 20 mg tablet RxNorm: 681863 Take 1 Tablet(s) Oral QD 07/08/19 023 Inactive clopidogrel 75 mg tablet RxNorm: 437692 Take 1 Tablet(s) Oral QD 07/08/19 021 Inactive Blood Glucose Test strips RxNorm: Use 1 Test Strip QID at PRN 07/08/19 21 021 Inactive E11.42 lisinopril 5 mg tablet RxNorm: 567036 Take 1 Tablet(s) Oral QD 07/08/19 021 Inactive metoprolol succinate ER 200 mg tablet,extended release 24 hr RxNorm: 064935 Take 1 Tablet(s) Oral QD 07/08/19 021 Inactive Vitamin D3 25 mcg (1,000 unit) tablet RxNorm: 569639 Take 1 Tablet(s) Oral QD 07/08/19 021 Inactive isosorbide dinitrate 30 mg tablet RxNorm: 273829 Take 1 Tablet(s) Oral QD 07/08/19 021 Inactive Levemir FlexTouch U-100 Insulin 100 unit/mL (3 mL) subcutaneous pen RxNorm: 537297 Inject 140 Unit(s) Subcutaneous BID 07/08/19 Inactive venlafaxine 75 mg tablet RxNorm: 922634 Take 1 Tablet(s) Oral QD 07/08/19 Inactive acetaminophen 500 mg tablet RxNorm: 672200 Take 1 Tablet(s) Oral TID as needed for headache 06/18/19 Inactive acetaminophen 500 mg tablet RxNorm: 851447 Take 1 Tablet(s) Oral TID as needed for headache 06/18/19 021 Inactive Lyrica 100 mg capsule RxNorm: 484987 Take 1 Capsule(s) Oral QHS every night at bedtime 06/11/19 021 Inactive Lyrica 50 mg capsule RxNorm: 153512 Take 1 Capsule(s) Oral QAM every morning 06/10/19 21 021 Inactive hydrocortisone 2.5 % topical cream RxNorm: 090728 Apply to bilateral groin creases Topical BID 05/15/20 20 021 Inactive clotrimazole 1 % topical cream RxNorm: 289800 Apply to bilateral groin areas Topical BID 05/15/20 20 021 Inactive Lyrica 50 mg capsule RxNorm: 118050 Take 1 Capsule(s) Oral QAM every morning 05/14/20 20 020 Inactive Lyrica 100 mg capsule RxNorm: 925652 Take 1 Capsule(s) Oral QHS every night [...] Inactive Nystop 100,000 unit/gram topical powder RxNorm: 888156 Apply to abd folds, under breasts and L side of groin Topical BID x 14 days, then BID PRN 04/08/20 20 021 Inactive dx: yeast dermatitis Lyrica 100 mg capsule RxNorm: 149118 Take 1 Capsule(s) Oral QHS every night at bedtime 03/13/20 20 Inactive Lyrica 50 mg capsule RxNorm: 433703 Take 1 Capsule(s) Oral QAM every morning 03/13/20 20 Inactive ketoconazole 2 % shampoo RxNorm: 530604 Apply Topical two times a week with showers 03/11/20 20 Inactive cholecalciferol (vitamin D3) 50 mcg (2,000 unit) tablet RxNorm: 889940 Take 1 Tablet(s) Oral QD 03/11/20 20 Inactive Zetia 10 mg tablet RxNorm: 321775 Take 1 Tablet(s) Oral QD 03/07/20 20 021 Inactive Zetia 10 mg tablet RxNorm: 063012 Take 1 Tablet(s) Oral QD 03/07/20 20 020 Inactive Lyrica 50 mg capsule RxNorm: 492353 Take 1 Capsule(s) Oral QAM every morning 02/15/20 20 Inactive Lyrica 100 mg capsule RxNorm: 281170 Take 1 Capsule(s) Oral QHS every night at bedtime 02/15/20 Inactive Lyrica 100 mg capsule RxNorm: 893757 Take 1 Capsule(s) Oral QHS every night at bedtime 02/15/20 Inactive Lyrica 50 mg capsule RxNorm: 098458 Take 1 Capsule(s) Oral QAM every morning [...] Referral: [facility] WPtel: [address] [facility], [address] [id number] Referral Records Received 09/21/2022 Referral: [facility] WPtel: [address] [facility] [address] [id number] [place] Referral Completed 05/28/2021 Patient Education: Patient M edication Summary Completed 03/31/2021 Referral: General Cardiology Referral Complet ed 01/03/2021 [...] Sister Jyotsna involved in his care cell# [phone] Guardian: Don (tapan met in person 09/01/21), now has Lexii (same group as don)Lab Schedule: * 10/06/2022
--- OUTSIDE RECORDS SUMMARY | 2021-04-03 19:00 | XMS_ITS | CCD ---
Author Name Sandra Mandujano CNP Address [address] [place] [address] Phone Organization [facility] Phone Care Team Providers Care Fiction And Nonfiction Writer Prose Name Role Phone Rosalina Shirley PA-C Primary Care Provider Unavailabl e Rosalina Shirley PA-C Chronic Care Management Unavaila ble Summary Purpose DataExchange Insurance Providers Payer name Policy type / Coverage type Covered constitution party ID Effective Begin Date Effective End Date Medicare [place] Medicare Part B [id number] Unknown Unknown Medicaid [place] Medicare Part B [id number] Unknown Unknown Family history Runs in the family Diagnosis Age At Onset No Known Diseases N/A Social History Social History Element Codes Description Effec tive Dates Living arrangements Unknown Longterm 09/03/[address]: 6766979 Non-Smoker / No History of Smoking 09/02/[address]: 441779750 No Alcohol Consum ption 09/02/2020 Allergies, Adverse Reactions, Alerts Substance Reaction Codes Entered Date Inactivated Date Status LISINOPRIL Unknown 02/12/2020 No Inactive Date A ctive Metformin HCl Unknown 02/12/2020 No Inactive Cristiano [...] 02/10/2021 Active Coronary artery disease invo lving [place] coronary artery of [place] heart, angina presence unspecified ICD-10: I25.10 ICD-9: [...] ICD-10: M10 .30 ICD-9: 274.10 09/03/2020 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 ICD-10: Z79.4 09/03 [...] Instructions aspirin 81 mg tablet,delayed release RxNorm: 099777 Take 1 Tablet(s) Oral QD 03/31/20 022 Active Vitamin D2 1,250 mcg (50,000 unit) capsule RxNorm: 8989051 Take 1 Capsule(s) Oral QW once a week x 12 weeks 03/31/20 022 Inactive Vitamin D2 1,250 mcg (50,000 unit) capsule RxNorm: 5860048 Take 1 Capsule(s) Oral QW once a week 03/31/20 021 Inactive Zetia 10 mg tablet RxNorm: 531669 Take 1 Tablet(s) Oral QD 03/31/20 022 Active Zetia 10 mg tablet RxNorm: 606604 Take 1 Tablet(s) Oral QD 11 Inactive hydralazine 25 mg tablet RxNorm: 660529 Take 1 Tablet(s) Oral QID 03/31/20 Inactive hydralazine 25 mg tablet RxNorm: 744237 Take 1 Tablet(s) Oral QID 03/31/20 Inactive hydralazine 10 mg tablet RxNorm: 339195 Take 1 Tablet(s) Oral QID 03/03/20 Inactive cephalexin 500 mg tablet RxNorm: 783059 Take 1 Tablet(s) Oral QID 02/27/20 Inactive cephalexin 500 mg tablet RxNorm: 866089 Take 1 Tablet(s) Oral QID 02/27/20 Inactive lisinopril 40 mg tablet RxNorm: 104349 Take 1 Tablet(s) Oral QD 02/11/20 022 Active Eliquis 5 mg tablet RxNorm: 7366241 Take 1 Tablet(s) Oral BID 01/05/20 022 Active Eliquis 5 mg tablet RxNorm: 0793898 Take 2 Tablet(s) Oral QD 01/01/20 Inactive Lyrica 50 mg capsule RxNorm: 104638 Take 1 Capsule(s) Oral QAM every morning 12/24/19 021 Inactive Lyrica 100 mg capsule RxNorm: 478795 Take 1 Capsule(s) Oral QHS every night at bedtime 12/24/19 021 Inactive clotrimazole 1 % topical cream RxNorm: 995355 Apply to right foot and toes Topical BID 12/04/19 21 021 Inactive metoprolol succinate ER 200 mg tablet,extended release 24 hr RxNorm: 070088 Take 1 Tablet(s) Oral QD 12/04/19 022 Inactive ciprofloxacin 500 mg tablet RxNorm: 859168 Take 1 Tablet(s) Oral QD 11/30/19 21 021 Inactive DX ofloxacin otic drops Accu-Chek Guide test strips RxNorm: USE 1 TO CHECK GLUCOSE 4 TIMES DAILY AND NEEDED 11/15/19 Inactive Blood Glucose Test strips RxNorm: Use 1 Test Strip QID at PRN 11/05/19 Inactive E11.42 lisinopril 30 mg tablet RxNorm: 390690 Take 1 Tablet(s) Oral QD 10/30/19 021 Inactive lisinopril 20 mg tablet RxNorm: 597518 Take 1 Tablet(s) Oral QD 10/23/19 021 Inactive lisinopril 20 mg tablet RxNorm: 880331 Take 1 Tablet(s) Oral QD 10/23/19 021 Inactive lisinopril 10 mg tablet RxNorm: 169828 Take 1 Tablet(s) Oral QD 10/02/19 Inactive icosapent ethyl 1 gram capsule RxNorm: 5157749 Take 2 Capsule(s) (2 gm) Oral BID with meals 09/12/19 022 Inactive Okay to dispense one 2gm tab if you have that available. icosapent ethyl 1 gram capsule RxNorm: 1479754 Take 2 Capsule(s) Oral BID 09/12/19 021 Inactive Okay to dispense one 2gm tab if you have that available. amlodipine 10 mg tablet RxNorm: 481394 Take 1 Tablet(s) Oral QD 09/04/19 022 Inactive Levemir FlexTouch U-100 Insulin 100 unit/mL (3 mL) subcutaneous pen RxNorm: 164900 Inject 150 Unit(s) Subcutaneous BID 09/04/19 022 Inactive venlafaxine ER 150 mg tablet,extended release 24 hr RxNorm: 569675 Take 1 Tablet(s) Oral QD 09/04/19 21 021 Inactive aspirin 81 mg tablet,delayed release RxNorm: 727336 Take 1 Tablet(s) Oral QD 09/04/19 21 021 Inactive clotrimazole-betame thasone 1 %-0.05 % topical cream RxNorm: 769753 Apply to rash on red area on left abdomen/chest Topical BID 08/10/19 21 04/19/2 021 Inactive amlodipine 5 mg tablet RxNorm: 840268 Take 1 Tablet(s) Oral QD 07/31/19 21 Inactive cephalexin 500 mg tablet RxNorm: 791569 Take 1 Tablet(s) Oral BID BID - Twice Daily 07/31/19 21 Inactive Start 08/01/20 pantoprazole 40 mg tablet,delayed release RxNorm: 683996 Take 1 Tablet(s) Oral QAM every morning 07/08/19 Inactive senna 8.6 mg tablet RxNorm: 983272 Take 1 Tablet(s) Oral QD 07/08/19 022 Inactive Novolog Flexpen U-100 Insulin aspart 100 unit/mL (3 mL) subcutaneous RxNorm: 6654029 Administer per sliding scale Milliliter(s) Subcutaneous TID 151-200: 10 u; 201-250: 20 u; 251-300: 30 u; 301-350: 40 u; 351-400: 50 u. 07/08/19 022 Inactive Novolog Flexpen U-100 Insulin aspart 100 unit/mL (3 mL) subcutaneous RxNorm: 4882543 Inject 85 Unit(s) Subcutaneous TID 07/08/19 Inactive pravastatin 80 mg tablet RxNorm: 809545 Take 1 Tablet(s) Oral QHS every night at bedtime 07/08/19 Inactive clotrimazole 1 % topical cream RxNorm: 043122 Apply to bilateral groin areas Topical BID 07/08/19 022 Inactive carbamazepine 200 mg tablet RxNorm: 370070 Take 1 Tablet(s) Oral BID 07/08/19 022 Inactive torsemide 20 mg tablet RxNorm: 255726 Take 1 Tablet(s) Oral QD 07/08/19 022 Inactive clopidogrel 75 mg tablet RxNorm: 277787 Take 1 Tablet(s) Oral QD 07/08/19 021 Inactive Blood Glucose Test strips RxNorm: Use 1 Test Strip QID at PRN 07/08/19 Inactive E11.42 lisinopril 5 mg tablet RxNorm: 559049 Take 1 Tablet(s) Oral QD 07/08/19 021 Inactive metoprolol succinate ER 200 mg tablet,extended release 24 hr RxNorm: 051889 Take 1 Tablet(s) Oral QD 07/08/19 021 Inactive Vitamin D3 25 mcg (1,000 unit) tablet RxNorm: 243329 Take 1 Tablet(s) Oral QD 07/08/19 021 Inactive isosorbide dinitrate 30 mg tablet RxNorm: 334087 Take 1 Tablet(s) Oral QD 07/08/19 021 Inactive Levemir FlexTouch U-100 Insulin 100 unit/mL (3 mL) subcutaneous pen RxNorm: 322193 Inject 140 Unit(s) Subcutaneous BID 07/08/19 Inactive venlafaxine 75 mg tablet RxNorm: 236187 Take 1 Tablet(s) Oral QD 07/08/19 Inactive acetaminophen 500 mg tablet RxNorm: 498898 Take 1 Tablet(s) Oral TID as needed for headache 06/18/19 Inactive acetaminophen 500 mg tablet RxNorm: 808066 Take 1 Tablet(s) Oral TID as needed for headache 06/18/19 Inactive Lyrica 100 mg capsule RxNorm: 525110 Take 1 Capsule(s) Oral QHS every night at bedtime 06/11/19 021 Inactive Lyrica 50 mg capsule RxNorm: 709095 Take 1 Capsule(s) Oral QAM every morning 06/10/19 021 Inactive hydrocortisone 2.5 % topical cream RxNorm: 264374 Apply to bilateral groin creases Topical BID 05/15/20 20 021 Inactive clotrimazole 1 % topical cream RxNorm: 105095 Apply to bilateral groin areas Topical BID 05/15/20 20 021 Inactive Lyrica 50 mg capsule RxNorm: 697150 Take 1 Capsule(s) Oral QAM every morning 05/14/20 20 020 Inactive Lyrica 100 mg capsule RxNorm: 314850 Take 1 Capsule(s) Oral QHS every night at bedtime 05/14/20 20 Inactive Lancets,Thin 28 gauge RxNorm: Use 1 as directed QID and PRN 04/24/20 20 021 Inactive Blood Glucose Monitoring kit RxNorm: Use as directed QID and PRN 04/24/20 20 021 Inactive Blood Glucose [...] Inactive Nystop 100,000 unit/gram topical powder RxNorm: 414800 Apply to abd folds, under breasts and L side of groin Topical BID x 14 days, then BID PRN 04/08/20 20 021 Inactive dx: yeast dermatitis Lyrica 100 mg capsule RxNorm: 953711 Take 1 Capsule(s) Oral QHS every night at bedtime 03/13/20 20 Inactive Lyrica 50 mg capsule RxNorm: 684793 Take 1 Capsule(s) Oral QAM every morning 03/13/20 20 Inactive ketoconazole 2 % shampoo RxNorm: 336765 Apply Topical two times a week with showers 03/11/20 20 Inactive cholecalciferol (vitamin D3) 50 mcg (2,000 unit) tablet RxNorm: 828922 Take 1 Tablet(s) Oral QD 03/11/20 20 021 Inactive Zetia 10 mg tablet RxNorm: 770862 Take 1 Tablet(s) Oral QD 03/07/20 20 021 Inactive Zetia 10 mg tablet RxNorm: 436983 Take 1 Tablet(s) Oral QD 03/07/20 20 020 Inactive Lyrica 50 mg capsule RxNorm: 257374 Take 1 Capsule(s) Oral QAM every morning 02/15/20 Inactive Lyrica 100 mg capsule RxNorm: 515658 Take 1 Capsule(s) Oral QHS every night at bedtime 02/15/20 Inactive Lyrica 100 mg capsule RxNorm: 263731 Take 1 Capsule(s) Oral QHS every night at bedtime 02/15/20 Inactive Lyrica 50 mg capsule RxNorm: 480036 Take 1 Capsule(s) Oral QAM every morning [...] data Encounters Encounter Performer Location Codes Date (50286) DOMICIL VISIT EST PAT Diagnosis: Seizure disorder[ICD10: G40.909] Diagnosis: Type 2 diabetes mellitus with diabetic polyneuropathy, with long-term current use of insulin[ICD10: E11.42] Diagnosis: Hyperlipidemia associated with type 2 diabetes mellitus[ICD10: E11.69] Diagnosis: Hypertension associated with diabetes[ICD10: E11.59] Diagnosis: Stage 2 chronic 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[ICD10: E11.22] Diagnosis: DVT (deep venous thrombosis)[ICD10: I82.409] Diagnosis: Vitamin D deficiency[ICD10: E55.9] Diagnosis: Skin tag[ICD10: L91.8] Sandra Boston CPT-4: 70067 03/31/2021 Plan of Care Planned Activity Notes Codes Status Date Referral: Endocrinology Clin ic [facility] WPtel: [address] [id number] [place] Referral Completed 05/28/2021 Patient Education: Patient Medication Summary Completed 03/31/2021 Patient Education: Influenza Vaccine Completed 03/31/2021 Referral: General Cardiology Referral Complet ed 01/03/2021 Referral: General Nephrology Referral No Upda te From Field Team Instructions Comment Date Epilepsy Serum Carbamazepine WNL. No need for changes today. Vitamin D Deficiency Recommend we increase supp to 50,000unit cap daily x 12w Skin tag 3 skin tags on right upper arm/axilla treated with liquid nitrogen without complication. 3 skin tags on right upper chest treated with liquid nitrogen without complication. DVT (deep venous thrombosis) Continue Eliquis Diabetes DMII: Nursing staff sent A1C over to his endocrinologists office. 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 HLD: Start Zetia 10mg . 03/31/2021
--- OUTSIDE RECORDS SUMMARY | 2021-05-04 19:00 | XMS_ITS | CCD ---
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 Tyre Builder Name Role Phone Tapan Shirley PA-C Primary Care Provider Unavailabl e Tapan Shirley PA-C Chronic Care Management Unavaila ble Summary Purpose DataExchange Insurance Providers Payer name Policy type / Coverage type Covered green party ID Effective Begin Date Effective End Date [place] [id number] Unknown Unknown [place] [id number] Unknown Unknown Family history Runs in the family Diagnosis Age At Onset No Known Diseases N/A Social History Social History Element Codes Description Effec tive Dates Living arrangements Unknown [facility] 09/03/[address]: 0740615 Non-Smoker / No History of Smoking 09/02/[address]: 296312322 No Alcohol Consum ption 09/02/2020 Allergies, Adverse Reactions, Alerts Substance Reaction Codes Entered Date Inactivated Date Status LISINOPRIL RxNorm: 12223 02/12/2020 No Inactive Da te Active Metformin HCl Unknown 02/12/2020 No Inactive Cristiano e Active Problems Condition Codes Effective Dates Condition St atus Depression ICD-10: F32.9 ICD-9: 311 05/05/2021 Active Hyperlipidemia associated wi th type 2 diabetes mellitus ICD-10: E11.69 ICD-9: 250.80 05/05/2021 Active Hypertension associated with diabetes ICD-10: E11.59 ICD-9: 250.80 05/05/2021 Active Learning disability ICD-10: F81.9 ICD-9: 315.2 05/05/2021 Active Seizure disorder ICD-10: G40.909 ICD-9: 345.90 05/05/2021 Active Stage 2 chronic kidney disea se due to type 2 diabetes mellitus ICD-10: E11.22 ICD-9: 250.40 05/05/2021 Active Type 2 diabetes mellitus wit h diabetic polyneuropathy, with long-term current use of insulin ICD-10: E11.42 ICD-9: 250.60 05/05/2021 Active DVT (deep venous thrombosis) ICD-10: I82 .409 ICD-9: 453.40 03/31/2021 Active Skin tag ICD-10: L91.8 ICD-9: 701.9 03/31/2021 Active Vitamin D deficiency ICD-10: E55.9 ICD-9: 268.9 03/31/2021 Active Cellulitis ICD-10: L03.90 ICD-9: 682.9 03/03/2021 Active History of anemia due to CKD ICD-10: N18 .9 ICD-9: 585.9 03/03/2021 Active Stage 2 chronic kidney disease ICD-10: N 18.2 ICD-9: 585.2 03/03/2021 Active Callus of heel ICD-10: L84 ICD-9: 700 02/10/2021 Active Coronary artery disease invo lving [place] coronary artery of [place] heart, angina presence unspecified ICD-10: I25.10 ICD-9: 414.01 02/10/2021 Active Impacted cerumen, left ear ICD-10: H61.2 2 ICD-9: 380.4 12/31/2020 Active Inappropriate sexual behavior ICD-10: Z7 2.89 ICD-9: 312.89 12/31/2020 Active Contact with and (suspected) exposure [...] disease ICD-10: N18.32 ICD-9: 285.21 10/01/2020 Resolved Gout due to renal impairment ICD-10: M10 .30 ICD-9: 274.10 09/03/2020 Active long-term (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 insulin ICD-10: Z79.4 09/03 [...] Fill Instructions hydralazine 50 mg tablet RxNorm: 011946 Take 1 Tablet(s) Oral QID 05/05/20 21 022 Inactive venlafaxine ER 225 mg tablet,extended release 24 hr RxNorm: 056140 Take 1 Tablet(s) Oral QD 05/05/20 21 021 Inactive venlafaxine ER 225 mg tablet,extended release 24 hr RxNorm: 746892 Take 1 Tablet(s) Oral QD 05/05/20 21 022 Inactive isosorbide mononitrate ER 30 mg tablet,extended release 24 hr RxNorm: 267954 Take 1 Tablet(s) Oral QD 05/05/20 21 No Stop Date Active hydralazine 50 mg tablet RxNorm: 691613 Take 1 Tablet(s) Oral QID 05/05/20 21 021 Inactive aspirin 81 mg tablet,delayed release RxNorm: 938142 Take 1 Tablet(s) Oral QD 03/31/20 022 Inactive Vitamin D2 1,250 mcg (50,000 unit) capsule RxNorm: 2454104 Take 1 Capsule(s) Oral QW once a week x 12 weeks 03/31/20 Inactive Zetia 10 mg tablet RxNorm: 375526 Take 1 Tablet(s) Oral QD 03/31/20 Inactive Vitamin D2 1,250 mcg (50,000 unit) capsule RxNorm: 7837421 Take 1 Capsule(s) Oral QW once a week 03/31/20 Inactive Zetia 10 mg tablet RxNorm: 451197 Take 1 Tablet(s) Oral QD 03/31/20 Inactive hydralazine 25 mg tablet RxNorm: 858715 Take 1 Tablet(s) Oral QID 03/31/20 021 Inactive hydralazine 25 mg tablet RxNorm: 215973 Take 1 Tablet(s) Oral QID 03/31/20 021 Inactive hydralazine 10 mg tablet RxNorm: 188179 Take 1 Tablet(s) Oral QID 03/03/20 021 Inactive cephalexin 500 mg tablet RxNorm: 366004 Take 1 Tablet(s) Oral QID 02/27/20 021 Inactive cephalexin 500 mg tablet RxNorm: 861843 Take 1 Tablet(s) Oral QID 02/27/20 021 Inactive lisinopril 40 mg tablet RxNorm: 075820 Take 1 Tablet(s) Oral QD 02/11/20 023 Inactive Eliquis 5 mg tablet RxNorm: 4852234 Take 1 Tablet(s) Oral BID 01/05/20 022 Inactive Eliquis 5 mg tablet RxNorm: 9087787 Take 2 Tablet(s) Oral QD 01/01/20 021 Inactive Lyrica 50 mg capsule RxNorm: 468621 Take 1 Capsule(s) Oral QAM every morning 12/24/19 21 021 Inactive Lyrica 100 mg capsule RxNorm: 940283 Take 1 Capsule(s) Oral QHS every night at bedtime 12/24/19 21 021 Inactive clotrimazole 1 % topical cream RxNorm: 348822 Apply to right foot and toes Topical BID 12/04/19 21 023 Inactive metoprolol succinate ER 200 mg tablet,extended release 24 hr RxNorm: 096458 Take 1 Tablet(s) Oral QD 12/04/19 21 023 Inactive ciprofloxacin 500 mg tablet RxNorm: 805511 Take 1 Tablet(s) Oral QD 11/30/19 21 021 Inactive DX ofloxacin otic drops Accu-Chek Guide test strips RxNorm: USE 1 TO CHECK GLUCOSE 4 TIMES DAILY AND NEEDED 11/15/19 023 Inactive Blood Glucose Test strips RxNorm: Use 1 Test Strip QID at PRN 11/05/19 21 023 Inactive E11.42 lisinopril 30 mg tablet RxNorm: 555009 Take 1 Tablet(s) Oral QD 10/30/19 021 Inactive lisinopril 20 mg tablet RxNorm: 006730 Take 1 Tablet(s) Oral QD 10/23/19 21 021 Inactive lisinopril 20 mg tablet RxNorm: 955174 Take 1 Tablet(s) Oral QD 10/23/19 21 021 Inactive lisinopril 10 mg tablet RxNorm: 470367 Take 1 Tablet(s) Oral QD 10/02/19 21 021 Inactive icosapent ethyl 1 gram capsule RxNorm: 4048344 Take 2 Capsule(s) (2 gm) Oral BID with meals 09/12/19 21 022 Inactive Okay to dispense one 2gm tab if you have that available. icosapent ethyl 1 gram capsule RxNorm: 5307003 Take 2 Capsule(s) Oral BID 09/12/19 21 021 Inactive Okay to dispense one 2gm tab if you have that available. amlodipine 10 mg tablet RxNorm: 754069 Take 1 Tablet(s) Oral QD 09/04/19 21 022 Inactive Levemir FlexTouch U-100 Insulin 100 unit/mL (3 mL) subcutaneous pen RxNorm: 852675 Inject 150 Unit(s) Subcutaneous BID 09/04/19 21 022 Inactive aspirin 81 mg tablet,delayed release RxNorm: 696955 Take 1 Tablet(s) Oral QD 09/04/19 Inactive venlafaxine ER 150 mg tablet,extended release 24 hr RxNorm: 765819 Take 1 Tablet(s) Oral QD 09/04/19 Inactive clotrimazole-betame thasone 1 %-0.05 % topical cream RxNorm: 630124 Apply to rash on red area on left abdomen/chest Topical BID 08/10/19 21 Inactive amlodipine 5 mg tablet RxNorm: 123827 Take 1 Tablet(s) Oral QD 07/31/19 Inactive cephalexin 500 mg tablet RxNorm: 649927 Take 1 Tablet(s) Oral BID BID - Twice Daily 07/31/19 Inactive Start 08/01/20 pantoprazole 40 mg tablet,delayed release RxNorm: 679674 Take 1 Tablet(s) Oral QAM every morning 07/08/19 022 Inactive senna 8.6 mg tablet RxNorm: 574733 Take 1 Tablet(s) Oral QD 07/08/19 Inactive Novolog Flexpen U-100 Insulin aspart 100 unit/mL (3 mL) subcutaneous RxNorm: 5837750 Administer per sliding scale Milliliter(s) Subcutaneous TID 151-200: 10 u; 201-250: 20 u; 251-300: 30 u; 301-350: 40 u; 351-400: 50 u. 07/08/19 21 022 Inactive Novolog Flexpen U-100 Insulin aspart 100 unit/mL (3 mL) subcutaneous RxNorm: 1296998 Inject 85 Unit(s) Subcutaneous TID 07/08/19 022 Inactive pravastatin 80 mg tablet RxNorm: 557175 Take 1 Tablet(s) Oral QHS every night at bedtime 07/08/19 022 Inactive clotrimazole 1 % topical cream RxNorm: 903005 Apply to bilateral groin areas Topical BID 07/08/19 022 Inactive carbamazepine 200 mg tablet RxNorm: 920234 Take 1 Tablet(s) Oral BID 07/08/19 022 Inactive torsemide 20 mg tablet RxNorm: 650219 Take 1 Tablet(s) Oral QD 07/08/19 023 Inactive clopidogrel 75 mg tablet RxNorm: 838204 Take 1 Tablet(s) Oral QD 07/08/19 021 Inactive Blood Glucose Test strips RxNorm: Use 1 Test Strip QID at PRN 07/08/19 21 021 Inactive E11.42 lisinopril 5 mg tablet RxNorm: 115576 Take 1 Tablet(s) Oral QD 07/08/19 Inactive metoprolol succinate ER 200 mg tablet,extended release 24 hr RxNorm: 848271 Take 1 Tablet(s) Oral QD 07/08/19 021 Inactive Vitamin D3 25 mcg (1,000 unit) tablet RxNorm: 444726 Take 1 Tablet(s) Oral QD 07/08/19 021 Inactive isosorbide dinitrate 30 mg tablet RxNorm: 882582 Take 1 Tablet(s) Oral QD 07/08/19 021 Inactive Levemir FlexTouch U-100 Insulin 100 unit/mL (3 mL) subcutaneous pen RxNorm: 611008 Inject 140 Unit(s) Subcutaneous BID 07/08/19 021 Inactive venlafaxine 75 mg tablet RxNorm: 870872 Take 1 Tablet(s) Oral QD 07/08/19 021 Inactive acetaminophen 500 mg tablet RxNorm: 895047 Take 1 Tablet(s) Oral TID as needed for headache 06/18/19 021 Inactive acetaminophen 500 mg tablet RxNorm: 304064 Take 1 Tablet(s) Oral TID as needed for headache 06/18/19 021 Inactive Lyrica 100 mg capsule RxNorm: 696392 Take 1 Capsule(s) Oral QHS every night at bedtime 06/11/19 021 Inactive Lyrica 50 mg capsule RxNorm: 948317 Take 1 Capsule(s) Oral QAM every morning 06/10/19 21 021 Inactive hydrocortisone 2.5 % topical cream RxNorm: 175548 Apply to bilateral groin creases Topical BID 05/15/20 20 021 Inactive clotrimazole 1 % topical cream RxNorm: 685056 Apply to bilateral groin areas Topical BID 05/15/20 20 Inactive Lyrica 50 mg capsule RxNorm: 224773 Take 1 Capsule(s) Oral QAM every morning 05/14/20 20 020 Inactive Lyrica 100 mg capsule RxNorm: 341706 Take 1 Capsule(s) Oral QHS every night [...] Inactive Nystop 100,000 unit/gram topical powder RxNorm: 143553 Apply to abd folds, under breasts and L side of groin Topical BID x 14 days, then BID PRN 04/08/20 20 021 Inactive dx: yeast dermatitis Lyrica 100 mg capsule RxNorm: 716173 Take 1 Capsule(s) Oral QHS every night at bedtime 03/13/20 20 020 Inactive Lyrica 50 mg capsule RxNorm: 666327 Take 1 Capsule(s) Oral QAM every morning 03/13/20 20 020 Inactive ketoconazole 2 % shampoo RxNorm: 421976 Apply Topical two times a week with showers 03/11/20 20 Inactive cholecalciferol (vitamin D3) 50 mcg (2,000 unit) tablet RxNorm: 397907 Take 1 Tablet(s) Oral QD 03/11/20 20 Inactive Zetia 10 mg tablet RxNorm: 018041 Take 1 Tablet(s) Oral QD 03/07/20 Inactive Zetia 10 mg tablet RxNorm: 698711 Take 1 Tablet(s) Oral QD 03/07/20 Inactive Lyrica 50 mg capsule RxNorm: 241665 Take 1 Capsule(s) Oral QAM every morning 02/15/20 Inactive Lyrica 100 mg capsule RxNorm: 713514 Take 1 Capsule(s) Oral QHS every night at bedtime 02/15/20 Inactive Lyrica 100 mg capsule RxNorm: 051344 Take 1 Capsule(s) Oral QHS every night at bedtime 02/15/20 Inactive Lyrica 50 mg capsule RxNorm: 877997 Take 1 Capsule(s) Oral QAM every morning [...] Date Referral: [facility] WPtel: [address], [address] [id number] [place] Referral Records Received 09/21/2022 Referral: [facility] WPt[place]: [address] [id number] [place] Referral Completed 05/28/2021 Referral: General Cardiology Referral Complet ed 01/03/2021 Referral: General Psychologist Referral Close d Instructions Comment Date Leonid is a Male being seen living at [facility]. Initial BPS visit 01/2020. PMHx including DMII, CAD w/ 5 stents, Depression, Seizure Disorder and CKD stage 3. He moved into [facility] in 12/2019 but after a hospitalization 05/2021 he moved to the [facility] to have closer nursing attention. Sister Jyotsna involved in his care cell# [phone] Guardian: Don (tapan met in person 09/01/21), now has Lexii (same group as don)Lab Schedule: * 10/06/2022
--- OUTSIDE RECORDS SUMMARY | 2021-05-08 19:00 | XMS_ITS | CCD ---
Author Name Sandra Mandujano CNP Address [address] [facility] [address] [place] [address] Phone Organization [facility] Phone Care Team Providers Care Dog License Officer Supervisor Name Role Phone Tapan Shirley PA-C Primary Care Provider Unavailabl e Tapan Shirley PA-C Chronic Care Management Unavaila ble Summary Purpose DataExchange Insurance Providers Payer name Policy type / Coverage type Covered green party ID Effective Begin Date Effective End Date Medicare [place] Medicare Part B [id number] Unknown Unknown Medicaid [place] Medicare Part B [id number] Unknown Unknown Family history Runs in the family Diagnosis Age At Onset No Known Diseases N/A Social History Social History Element Codes Description Effec tive Dates Living arrangements Unknown Care Home 09/03/[address]: 6032950 Non-Smoker / No History of Smoking 09/02/[address]: 141844960 No Alcohol Consum ption 09/02/2020 Allergies, Adverse Reactions, Alerts Substance Reaction Codes Entered Date Inactivated Date Status LISINOPRIL RxNorm: 85824 02/12/2020 No Inactive Da te Active Metformin [...] 02/10/2021 Active Coronary artery disease invo lving [place] coronary artery of [place] heart, angina presence unspecified ICD-10: I25.10 ICD-9: [...] ICD-10: M10 .30 ICD-9: 274.10 09/03/2020 Active retirement (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 insulin [...] Fill Instructions hydralazine 50 mg tablet RxNorm: 404176 Take 1 Tablet(s) Oral QID 05/05/20 21 022 Inactive venlafaxine ER 225 mg tablet,extended release 24 hr RxNorm: 779989 Take 1 Tablet(s) Oral QD 05/05/20 21 021 Inactive venlafaxine ER 225 mg tablet,extended release 24 hr RxNorm: 269569 Take 1 Tablet(s) Oral QD 05/05/20 21 022 Inactive isosorbide mononitrate ER 30 mg tablet,extended release 24 hr RxNorm: 266140 Take 1 Tablet(s) Oral QD 05/05/20 21 No Stop Date Active hydralazine 50 mg tablet RxNorm: 352194 Take 1 Tablet(s) Oral QID 05/05/20 21 Inactive aspirin 81 mg tablet,delayed release RxNorm: 027306 Take 1 Tablet(s) Oral QD 03/31/20 Inactive Vitamin D2 1,250 mcg (50,000 unit) capsule RxNorm: 0133654 Take 1 Capsule(s) Oral QW once a week x 12 weeks 03/31/20 Inactive Zetia 10 mg tablet RxNorm: 557878 Take 1 Tablet(s) Oral QD 03/31/20 Inactive Vitamin D2 1,250 mcg (50,000 unit) capsule RxNorm: 6560035 Take 1 Capsule(s) Oral QW once a week 03/31/20 Inactive Zetia 10 mg tablet RxNorm: 713313 Take 1 Tablet(s) Oral QD 03/31/20 Inactive hydralazine 25 mg tablet RxNorm: 112346 Take 1 Tablet(s) Oral QID 03/31/20 021 Inactive hydralazine 25 mg tablet RxNorm: 416857 Take 1 Tablet(s) Oral QID 03/31/20 021 Inactive hydralazine 10 mg tablet RxNorm: 810095 Take 1 Tablet(s) Oral QID 03/03/20 021 Inactive cephalexin 500 mg tablet RxNorm: 263001 Take 1 Tablet(s) Oral QID 02/27/20 021 Inactive cephalexin 500 mg tablet RxNorm: 062998 Take 1 Tablet(s) Oral QID 02/27/20 021 Inactive lisinopril 40 mg tablet RxNorm: 768261 Take 1 Tablet(s) Oral QD 02/11/20 21 023 Inactive Eliquis 5 mg tablet RxNorm: 4350527 Take 1 Tablet(s) Oral BID 01/05/20 21 022 Inactive Eliquis 5 mg tablet RxNorm: 2283555 Take 2 Tablet(s) Oral QD 01/01/20 21 021 Inactive Lyrica 50 mg capsule RxNorm: 635198 Take 1 Capsule(s) Oral QAM every morning 12/24/19 21 021 Inactive Lyrica 100 mg capsule RxNorm: 183011 Take 1 Capsule(s) Oral QHS every night at bedtime 12/24/19 021 Inactive clotrimazole 1 % topical cream RxNorm: 241943 Apply to right foot and toes Topical BID 12/04/19 21 023 Inactive metoprolol succinate ER 200 mg tablet,extended release 24 hr RxNorm: 470889 Take 1 Tablet(s) Oral QD 12/04/19 21 023 Inactive ciprofloxacin 500 mg tablet RxNorm: 817414 Take 1 Tablet(s) Oral QD 11/30/19 21 021 Inactive DX ofloxacin otic drops Accu-Chek Guide test strips RxNorm: USE 1 TO CHECK GLUCOSE 4 TIMES DAILY AND NEEDED 11/15/19 21 023 Inactive Blood Glucose Test strips RxNorm: Use 1 Test Strip QID at PRN 11/05/19 21 023 Inactive E11.42 lisinopril 30 mg tablet RxNorm: 309146 Take 1 Tablet(s) Oral QD 10/30/19 021 Inactive lisinopril 20 mg tablet RxNorm: 616703 Take 1 Tablet(s) Oral QD 10/23/19 21 021 Inactive lisinopril 20 mg tablet RxNorm: 932497 Take 1 Tablet(s) Oral QD 10/23/19 021 Inactive lisinopril 10 mg tablet RxNorm: 994890 Take 1 Tablet(s) Oral QD 10/02/19 021 Inactive icosapent ethyl 1 gram capsule RxNorm: 0490019 Take 2 Capsule(s) (2 gm) Oral BID with meals 09/12/19 21 022 Inactive Okay to dispense one 2gm tab if you have that available. icosapent ethyl 1 gram capsule RxNorm: 9479173 Take 2 Capsule(s) Oral BID 09/12/19 21 021 Inactive Okay to dispense one 2gm tab if you have that available. amlodipine 10 mg tablet RxNorm: 346326 Take 1 Tablet(s) Oral QD 09/04/19 022 Inactive Levemir FlexTouch U-100 Insulin 100 unit/mL (3 mL) subcutaneous pen RxNorm: 859196 Inject 150 Unit(s) Subcutaneous BID 09/04/19 21 Inactive aspirin 81 mg tablet,delayed release RxNorm: 543823 Take 1 Tablet(s) Oral QD 09/04/19 Inactive venlafaxine ER 150 mg tablet,extended release 24 hr RxNorm: 139208 Take 1 Tablet(s) Oral QD 09/04/19 Inactive clotrimazole-betame thasone 1 %-0.05 % topical cream RxNorm: 900640 Apply to rash on red area on left abdomen/chest Topical BID 08/10/19 Inactive amlodipine 5 mg tablet RxNorm: 109895 Take 1 Tablet(s) Oral QD 07/31/19 Inactive cephalexin 500 mg tablet RxNorm: 238950 Take 1 Tablet(s) Oral BID BID - Twice Daily 07/31/19 Inactive Start 08/01/20 pantoprazole 40 mg tablet,delayed release RxNorm: 369707 Take 1 Tablet(s) Oral QAM every morning 07/08/19 Inactive senna 8.6 mg tablet RxNorm: 491797 Take 1 Tablet(s) Oral QD 07/08/19 Inactive Novolog Flexpen U-100 Insulin aspart 100 unit/mL (3 mL) subcutaneous RxNorm: 0584363 Administer per sliding scale Milliliter(s) Subcutaneous TID 151-200: 10 u; 201-250: 20 u; 251-300: 30 u; 301-350: 40 u; 351-400: 50 u. 07/08/19 Inactive Novolog Flexpen U-100 Insulin aspart 100 unit/mL (3 mL) subcutaneous RxNorm: 1525952 Inject 85 Unit(s) Subcutaneous TID 07/08/19 022 Inactive pravastatin 80 mg tablet RxNorm: 958547 Take 1 Tablet(s) Oral QHS every night at bedtime 07/08/19 022 Inactive clotrimazole 1 % topical cream RxNorm: 811328 Apply to bilateral groin areas Topical BID 07/08/19 21 Inactive carbamazepine 200 mg tablet RxNorm: 916651 Take 1 Tablet(s) Oral BID 07/08/19 21 022 Inactive torsemide 20 mg tablet RxNorm: 514301 Take 1 Tablet(s) Oral QD 07/08/19 21 023 Inactive clopidogrel 75 mg tablet RxNorm: 661209 Take 1 Tablet(s) Oral QD 07/08/19 021 Inactive Blood Glucose Test strips RxNorm: Use 1 Test Strip QID at PRN 07/08/19 21 Inactive E11.42 lisinopril 5 mg tablet RxNorm: 971014 Take 1 Tablet(s) Oral QD 07/08/19 021 Inactive metoprolol succinate ER 200 mg tablet,extended release 24 hr RxNorm: 471007 Take 1 Tablet(s) Oral QD 07/08/19 021 Inactive Vitamin D3 25 mcg (1,000 unit) tablet RxNorm: 294392 Take 1 Tablet(s) Oral QD 07/08/19 021 Inactive isosorbide dinitrate 30 mg tablet RxNorm: 904375 Take 1 Tablet(s) Oral QD 07/08/19 021 Inactive Levemir FlexTouch U-100 Insulin 100 unit/mL (3 mL) subcutaneous pen RxNorm: 025315 Inject 140 Unit(s) Subcutaneous BID 07/08/19 021 Inactive venlafaxine 75 mg tablet RxNorm: 370352 Take 1 Tablet(s) Oral QD 07/08/19 021 Inactive acetaminophen 500 mg tablet RxNorm: 872582 Take 1 Tablet(s) Oral TID as needed for headache 06/18/19 021 Inactive acetaminophen 500 mg tablet RxNorm: 339977 Take 1 Tablet(s) Oral TID as needed for headache 06/18/19 21 021 Inactive Lyrica 100 mg capsule RxNorm: 396248 Take 1 Capsule(s) Oral QHS every night at bedtime 06/11/19 21 021 Inactive Lyrica 50 mg capsule RxNorm: 215446 Take 1 Capsule(s) Oral QAM every morning 06/10/19 21 021 Inactive hydrocortisone 2.5 % topical cream RxNorm: 362916 Apply to bilateral groin creases Topical BID 05/15/20 20 021 Inactive clotrimazole 1 % topical cream RxNorm: 768599 Apply to bilateral groin areas Topical BID 05/15/20 20 021 Inactive Lyrica 50 mg capsule RxNorm: 741379 Take 1 Capsule(s) Oral QAM every morning 05/14/20 20 020 Inactive Lyrica 100 mg capsule RxNorm: 865279 Take 1 Capsule(s) Oral QHS every night [...] Inactive Nystop 100,000 unit/gram topical powder RxNorm: 341573 Apply to abd folds, under breasts and L side of groin Topical BID x 14 days, then BID PRN 04/08/20 20 021 Inactive dx: yeast dermatitis Lyrica 100 mg capsule RxNorm: 144531 Take 1 Capsule(s) Oral QHS every night at bedtime 03/13/20 20 020 Inactive Lyrica 50 mg capsule RxNorm: 954752 Take 1 Capsule(s) Oral QAM every morning 03/13/20 20 Inactive ketoconazole 2 % shampoo RxNorm: 839269 Apply Topical two times a week with showers 03/11/20 Inactive cholecalciferol (vitamin D3) 50 mcg (2,000 unit) tablet RxNorm: 355849 Take 1 Tablet(s) Oral QD 03/11/20 Inactive Zetia 10 mg tablet RxNorm: 806687 Take 1 Tablet(s) Oral QD 03/07/20 Inactive Zetia 10 mg tablet RxNorm: 853287 Take 1 Tablet(s) Oral QD 03/07/20 Inactive Lyrica 50 mg capsule RxNorm: 212946 Take 1 Capsule(s) Oral QAM every morning 02/15/20 Inactive Lyrica 100 mg capsule RxNorm: 098707 Take 1 Capsule(s) Oral QHS every night at bedtime 02/15/20 Inactive Lyrica 100 mg capsule RxNorm: 675303 Take 1 Capsule(s) Oral QHS every night at bedtime 02/15/20 Inactive Lyrica 50 mg capsule RxNorm: 067753 Take 1 Capsule(s) Oral QAM every morning [...] Result Date S ervice Location PHQ-9 PHQ9 90108-3 19 05/05/2021 Unknown Procedures Procedure Codes Date SYS BP > OR = 140 CPT-4: G8753 05/05/2021 CUI BP LESS 90 CPT-4: G8754 05/05/2021 POS CLIN DEPRES SCRN F/U DOC SNOMED CT: 67036356 CPT-4: G8431 05/05/2021 Vital Signs Date Vital 05/05/2021 Blood Pressure 1: 147/81 Code: 8480-6 Heart Rate 1: 74 bpm Code: 8867-4 Respiratory Rate: 16 bpm Temperature: 36.7 (C) / 98.0 (F) Weight: 417 lbs 10 oz Code: 3141-9 Reason For Visit No Reason For Visit data Encounters Encounter Performer Location Location Address Codes Date (71369) DOMICIL VISIT EST PAT Diagnosis: Seizure disorder[ICD10: G40.909] Diagnosis: Depression[ICD10: F32.9] Diagnosis: Hypertension associated with diabetes[ICD10: E11.59] Diagnosis: Hyperlipidemia associated with type 2 diabetes mellitus[ICD10: E11.69] Diagnosis: Stage 2 chronic 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[ICD10: E11.22] Diagnosis: Type 2 diabetes mellitus with diabetic polyneuropathy, with long-term current use of insulin[ICD10: E11.42] Diagnosis: Learning disability[ICD10: F81.9] [facility] [address] [place] [address] CPT-4: 01202 05/05/2021 Plan of Care Planned Activity Notes Codes Status Date Referral: [facility] WPtel: [phone], [address] [id number] [place] Referral Records Received 09/21/2022 Referral: [facility] WPtel: [address] [id number] [place] Referral Completed 05/28/2021 Patient Education: Patient M edication Summary Completed 05/05/2021 Patient Education: Alzheimer''s Disease Completed 05/05/2021 Patient Education: Influenza Vaccine Completed 05/05/2021 Patient Education: Dementia Complete d 05/05/2021 Referral: General Cardiology Referral Complet ed 01/03/2021 [...] 05/2021 he moved to the [facility] to have closer nursing attention. Sister Jyotsna involved in his care cell# [phone] Guardian: Don (tapan met in person 09/01/21), now has Lexii (same group as don)Lab Schedule: * 10/06/2022 Diabetes HTN: Increasing Hydralazine to 50mg Epilepsy No recent changes in seizure activity. Stable, continue current treatment plan. Learning disability Patient lives in an appropriate setting for their needs. Patient receives help from 24/hr computer support analyst. Depression Increasing Venlafaxine . 05/05/2021
--- OUTSIDE RECORDS SUMMARY | 2021-06-01 19:00 | XMS_ITS | CCD ---
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 Gray Tender Name Role Phone Tapan Shirley PA-C Primary Care Provider Unavailabl e Tapan Shirley PA-C Chronic Care Management Unavaila ble Summary Purpose DataExchange Insurance Providers Payer name Policy type / Coverage type Covered republican ID Effective Begin Date Effective End Date Medicare [place] Part B [id number] Unknown Unknown [place] [id number] Unknown Unknown Family history Runs in the family Diagnosis Age At Onset No Known Diseases N/A Social History Social History Element Codes Description Effec tive Dates Living arrangements Unknown Long Term 09/03/[address]: 2159795 Non-Smoker / No History of Smoking 09/02/[address]: 862479916 No Alcohol Consum ption 09/02/2020 Allergies, Adverse Reactions, Alerts Substance Reaction Codes Entered Date Inactivated Date Status LISINOPRIL RxNorm: 40264 02/12/2020 No Inactive Da te Active Metformin [...] 02/10/2021 Active Coronary artery disease invo lving [place] coronary artery of [place] heart, angina presence unspecified ICD-10: I25.10 ICD-9: [...] Fill Instructions hydralazine 50 mg tablet RxNorm: 232871 Take 1 Tablet(s) Oral QID 05/05/20 21 022 Inactive venlafaxine ER 225 mg tablet,extended release 24 hr RxNorm: 874080 Take 1 Tablet(s) Oral QD 05/05/20 21 022 Inactive isosorbide mononitrate ER 30 mg tablet,extended release 24 hr RxNorm: 262196 Take 1 Tablet(s) Oral QD 05/05/20 21 No Stop Date Active venlafaxine ER 225 mg tablet,extended release 24 hr RxNorm: 287127 Take 1 Tablet(s) Oral QD 05/05/20 21 021 Inactive hydralazine 50 mg tablet RxNorm: 708203 Take 1 Tablet(s) Oral QID 05/05/20 21 021 Inactive aspirin 81 mg tablet,delayed release RxNorm: 064130 Take 1 Tablet(s) Oral QD 03/31/20 022 Inactive Vitamin D2 1,250 mcg (50,000 unit) capsule RxNorm: 1057648 Take 1 Capsule(s) Oral QW once a week x 12 weeks 03/31/20 Inactive Zetia 10 mg tablet RxNorm: 472470 Take 1 Tablet(s) Oral QD 03/31/20 Inactive Vitamin D2 1,250 mcg (50,000 unit) capsule RxNorm: 6186300 Take 1 Capsule(s) Oral QW once a week 03/31/20 Inactive Zetia 10 mg tablet RxNorm: 791735 Take 1 Tablet(s) Oral QD 03/31/20 Inactive hydralazine 25 mg tablet RxNorm: 536460 Take 1 Tablet(s) Oral QID 03/31/20 021 Inactive hydralazine 25 mg tablet RxNorm: 639107 Take 1 Tablet(s) Oral QID 03/31/20 021 Inactive hydralazine 10 mg tablet RxNorm: 749325 Take 1 Tablet(s) Oral QID 03/03/20 021 Inactive cephalexin 500 mg tablet RxNorm: 649657 Take 1 Tablet(s) Oral QID 02/27/20 021 Inactive cephalexin 500 mg tablet RxNorm: 156559 Take 1 Tablet(s) Oral QID 02/27/20 021 Inactive lisinopril 40 mg tablet RxNorm: 384023 Take 1 Tablet(s) Oral QD 02/11/20 023 Inactive Eliquis 5 mg tablet RxNorm: 8940203 Take 1 Tablet(s) Oral BID 01/05/20 022 Inactive Eliquis 5 mg tablet RxNorm: 7287872 Take 2 Tablet(s) Oral QD 01/01/20 021 Inactive Lyrica 50 mg capsule RxNorm: 187169 Take 1 Capsule(s) Oral QAM every morning 12/24/19 21 021 Inactive Lyrica 100 mg capsule RxNorm: 721545 Take 1 Capsule(s) Oral QHS every night at bedtime 12/24/19 21 021 Inactive clotrimazole 1 % topical cream RxNorm: 202938 Apply to right foot and toes Topical BID 12/04/19 21 023 Inactive metoprolol succinate ER 200 mg tablet,extended release 24 hr RxNorm: 107719 Take 1 Tablet(s) Oral QD 12/04/19 21 023 Inactive ciprofloxacin 500 mg tablet RxNorm: 859735 Take 1 Tablet(s) Oral QD 11/30/19 21 021 Inactive DX ofloxacin otic drops Accu-Chek Guide test strips RxNorm: USE 1 TO CHECK GLUCOSE 4 TIMES DAILY AND NEEDED 11/15/19 023 Inactive Blood Glucose Test strips RxNorm: Use 1 Test Strip QID at PRN 11/05/19 21 023 Inactive E11.42 lisinopril 30 mg tablet RxNorm: 440107 Take 1 Tablet(s) Oral QD 10/30/19 021 Inactive lisinopril 20 mg tablet RxNorm: 357399 Take 1 Tablet(s) Oral QD 10/23/19 21 021 Inactive lisinopril 20 mg tablet RxNorm: 325929 Take 1 Tablet(s) Oral QD 10/23/19 21 021 Inactive lisinopril 10 mg tablet RxNorm: 910859 Take 1 Tablet(s) Oral QD 10/02/19 21 021 Inactive icosapent ethyl 1 gram capsule RxNorm: 7853697 Take 2 Capsule(s) (2 gm) Oral BID with meals 09/12/19 21 022 Inactive Okay to dispense one 2gm tab if you have that available. icosapent ethyl 1 gram capsule RxNorm: 1131239 Take 2 Capsule(s) Oral BID 09/12/19 21 021 Inactive Okay to dispense one 2gm tab if you have that available. amlodipine 10 mg tablet RxNorm: 052658 Take 1 Tablet(s) Oral QD 09/04/19 21 022 Inactive Levemir FlexTouch U-100 Insulin 100 unit/mL (3 mL) subcutaneous pen RxNorm: 592066 Inject 150 Unit(s) Subcutaneous BID 09/04/19 21 022 Inactive aspirin 81 mg tablet,delayed release RxNorm: 318540 Take 1 Tablet(s) Oral QD 09/04/19 Inactive venlafaxine ER 150 mg tablet,extended release 24 hr RxNorm: 323772 Take 1 Tablet(s) Oral QD 09/04/19 Inactive clotrimazole-betame thasone 1 %-0.05 % topical cream RxNorm: 988556 Apply to rash on red area on left abdomen/chest Topical BID 08/10/19 21 Inactive amlodipine 5 mg tablet RxNorm: 338754 Take 1 Tablet(s) Oral QD 07/31/19 Inactive cephalexin 500 mg tablet RxNorm: 673885 Take 1 Tablet(s) Oral BID BID - Twice Daily 07/31/19 Inactive Start 08/01/20 pantoprazole 40 mg tablet,delayed release RxNorm: 911296 Take 1 Tablet(s) Oral QAM every morning 07/08/19 022 Inactive senna 8.6 mg tablet RxNorm: 035047 Take 1 Tablet(s) Oral QD 07/08/19 Inactive Novolog Flexpen U-100 Insulin aspart 100 unit/mL (3 mL) subcutaneous RxNorm: 9539992 Administer per sliding scale Milliliter(s) Subcutaneous TID 151-200: 10 u; 201-250: 20 u; 251-300: 30 u; 301-350: 40 u; 351-400: 50 u. 07/08/19 21 022 Inactive Novolog Flexpen U-100 Insulin aspart 100 unit/mL (3 mL) subcutaneous RxNorm: 8400110 Inject 85 Unit(s) Subcutaneous TID 07/08/19 022 Inactive pravastatin 80 mg tablet RxNorm: 205498 Take 1 Tablet(s) Oral QHS every night at bedtime 07/08/19 022 Inactive clotrimazole 1 % topical cream RxNorm: 807306 Apply to bilateral groin areas Topical BID 07/08/19 022 Inactive carbamazepine 200 mg tablet RxNorm: 453992 Take 1 Tablet(s) Oral BID 07/08/19 022 Inactive torsemide 20 mg tablet RxNorm: 884360 Take 1 Tablet(s) Oral QD 07/08/19 023 Inactive clopidogrel 75 mg tablet RxNorm: 965852 Take 1 Tablet(s) Oral QD 07/08/19 021 Inactive Blood Glucose Test strips RxNorm: Use 1 Test Strip QID at PRN 07/08/19 21 021 Inactive E11.42 lisinopril 5 mg tablet RxNorm: 188670 Take 1 Tablet(s) Oral QD 07/08/19 Inactive metoprolol succinate ER 200 mg tablet,extended release 24 hr RxNorm: 110904 Take 1 Tablet(s) Oral QD 07/08/19 021 Inactive Vitamin D3 25 mcg (1,000 unit) tablet RxNorm: 866565 Take 1 Tablet(s) Oral QD 07/08/19 021 Inactive isosorbide dinitrate 30 mg tablet RxNorm: 411200 Take 1 Tablet(s) Oral QD 07/08/19 021 Inactive Levemir FlexTouch U-100 Insulin 100 unit/mL (3 mL) subcutaneous pen RxNorm: 859068 Inject 140 Unit(s) Subcutaneous BID 07/08/19 021 Inactive venlafaxine 75 mg tablet RxNorm: 762029 Take 1 Tablet(s) Oral QD 07/08/19 021 Inactive acetaminophen 500 mg tablet RxNorm: 691376 Take 1 Tablet(s) Oral TID as needed for headache 06/18/19 021 Inactive acetaminophen 500 mg tablet RxNorm: 290053 Take 1 Tablet(s) Oral TID as needed for headache 06/18/19 021 Inactive Lyrica 100 mg capsule RxNorm: 243352 Take 1 Capsule(s) Oral QHS every night at bedtime 06/11/19 021 Inactive Lyrica 50 mg capsule RxNorm: 689331 Take 1 Capsule(s) Oral QAM every morning 06/10/19 21 021 Inactive hydrocortisone 2.5 % topical cream RxNorm: 779980 Apply to bilateral groin creases Topical BID 05/15/20 20 021 Inactive clotrimazole 1 % topical cream RxNorm: 460000 Apply to bilateral groin areas Topical BID 05/15/20 20 Inactive Lyrica 50 mg capsule RxNorm: 975788 Take 1 Capsule(s) Oral QAM every morning 05/14/20 20 020 Inactive Lyrica 100 mg capsule RxNorm: 784427 Take 1 Capsule(s) Oral QHS every night [...] Inactive Nystop 100,000 unit/gram topical powder RxNorm: 085571 Apply to abd folds, under breasts and L side of groin Topical BID x 14 days, then BID PRN 04/08/20 20 021 Inactive dx: yeast dermatitis Lyrica 100 mg capsule RxNorm: 950114 Take 1 Capsule(s) Oral QHS every night at bedtime 03/13/20 20 020 Inactive Lyrica 50 mg capsule RxNorm: 319191 Take 1 Capsule(s) Oral QAM every morning 03/13/20 20 020 Inactive ketoconazole 2 % shampoo RxNorm: 667759 Apply Topical two times a week with showers 03/11/20 20 Inactive cholecalciferol (vitamin D3) 50 mcg (2,000 unit) tablet RxNorm: 610749 Take 1 Tablet(s) Oral QD 03/11/20 Inactive Zetia 10 mg tablet RxNorm: 419969 Take 1 Tablet(s) Oral QD 03/07/20 Inactive Zetia 10 mg tablet RxNorm: 298163 Take 1 Tablet(s) Oral QD 03/07/20 Inactive Lyrica 50 mg capsule RxNorm: 843868 Take 1 Capsule(s) Oral QAM every morning 02/15/20 Inactive Lyrica 100 mg capsule RxNorm: 011530 Take 1 Capsule(s) Oral QHS every night at bedtime 02/15/20 Inactive Lyrica 100 mg capsule RxNorm: 446162 Take 1 Capsule(s) Oral QHS every night at bedtime 02/15/20 Inactive Lyrica 50 mg capsule RxNorm: 400549 Take 1 Capsule(s) Oral QAM every morning [...] Codes Status Date Referral: [facility] WPtel: [id number] [id number] [place] Referral Records Received 09/21/2022 Referral: [facility] WPtel: [id number] [id number] [place] Referral Completed 05/28/2021 Referral: General Cardiology Referral Complet ed 01/03/2021 Referral: General Psychologist Referral Close d Instructions Comment Date Leonid is a Male being seen living at [facility]. Initial [facility] visit 01/2020. PMHx including DMII, CAD w/ 5 stents, Depression, Seizure Disorder and CKD stage 3. He moved into [facility] in 12/2019 but after a hospitalization 05/2021 he moved to the [facility] to have closer nursing attention. Sister Jyotsna involved in his care cell# [phone] Guardian: Don (tapan met in person 09/01/21), now has Lexii (same group as don)Lab Schedule: * 10/06/2022
--- OUTSIDE RECORDS SUMMARY | 2021-08-14 19:00 | XMS_ITS | CCD ---
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 [employer] Name Role Phone Tapan Shirley PA-C Primary Care Provider Unavailabl e Tapan Shirley PA-C Chronic Care Management Unavaila ble Summary Purpose DataExchange Insurance Providers Payer name Policy type / Coverage type Covered alliance party ID Effective Begin Date Effective End Date Medicare [place] Part B [id number] Unknown Unknown Medicaid [place] Part B [id number] Unknown Unknown Family history Runs in the family Diagnosis Age At Onset No Known Diseases N/A Social History Social History Element Codes Description Effec tive Dates Living arrangements Unknown Shelter 09/03/[address]: 4151664 Non-Smoker / No History of Smoking 09/02/[address]: 010834785 No Alcohol Consum ption 09/02/2020 Allergies, Adverse Reactions, Alerts Substance Reaction Codes Entered Date Inactivated Date Status LISINOPRIL RxNorm: 61189 02/12/2020 No Inactive Da te Active Metformin HCl Unknown 02/12/2020 No Inactive Cristiano e Active Problems Condition Codes Effective Dates Condition St atus Hyperlipidemia associated wi th type 2 diabetes mellitus ICD-10: E11.69 ICD-9: 250.80 08/04/2021 Active Hypertension associated with diabetes ICD-10: E11.59 ICD-9: 250.80 08/04/2021 Active Muscular pain ICD-10: M79.10 ICD-9: 729.1 08/04/2021 Active Pain of right heel ICD-10: M79.671 ICD-9: 729.5 08/04/2021 Active Stage 2 chronic kidney disea se due to type 2 diabetes mellitus ICD-10: E11.22 ICD-9: 250.40 08/04/2021 Active Type 2 diabetes mellitus wit h diabetic polyneuropathy, with long-term current use of insulin ICD-10: E11.42 ICD-9: 250.60 08/04/2021 Active Coronary artery disease invo lving [place] coronary artery of [place] heart, angina presence unspecified ICD-10: I25.10 ICD-9: 414.01 07/08/2021 Active DVT (deep venous thrombosis) ICD-10: I82 .409 ICD-9: 453.40 07/08/2021 Active Seizure disorder ICD-10: G40.909 ICD-9: 345.90 07/08/2021 Active Encounter for immunization ICD-10: Z23 ICD-9: V03.89 06/18/2021 Active Candidiasis, intertrigo ICD-10: B37.2 ICD-9: 112.3 06/10/2021 Active History of anemia due to CKD ICD-10: N18 .9 ICD-9: 585.9 06/10/2021 Active Stage 2 chronic kidney disease ICD-10: N 18.2 ICD-9: 585.2 06/10/2021 Active Depression ICD-10: F32.9 ICD-9: 311 05/05/2021 Active Learning disability ICD-10: F81.9 ICD-9: 315.2 05/05/2021 Active Skin tag ICD-10: L91.8 ICD-9: 701.9 03/31/2021 Active Vitamin D deficiency ICD-10: E55.9 ICD-9: 268.9 03/31/2021 Active Cellulitis ICD-10: L03.90 ICD-9: 682.9 03/03/2021 Active Callus of heel ICD-10: L84 ICD-9: 700 02/10/2021 Active Impacted cerumen, left ear ICD-10: [...] examination ICD-10: Z00.00 ICD-9: V70.0 12/31/2020 Resolved Secondary hypertension ICD-10: I15.9 ICD-9: 405.99 10/29/2020 Active Anemia due to stage 3b chron ic kidney disease ICD-10: N18.32 ICD-9: 285.21 10/01/2020 Resolved Gout due to renal impairment ICD-10: M10 .30 ICD-9: 274.10 09/03/2020 Active intermediate (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 insulin ICD-10: Z79.4 09/03 [...] Fill Instructions Lyrica 100 mg capsule RxNorm: 062297 Take 1 Capsule(s) Oral QHS every night at bedtime Take 1 capsule by mouth once daily at bedtime 08/16/19 22 022 Inactive Lyrica 50 mg capsule RxNorm: 033177 Take 1 Capsule(s) Oral QAM every morning Take 1 capsule by mouth once daily 08/16/19 22 022 Inactive Levemir FlexTouch U-100 Insulin 100 unit/mL (3 mL) subcutaneous pen RxNorm: 881032 Inject 86 Unit(s) Subcutaneous BID 08/05/19 22 022 Inactive d/c 83units BID Lyrica 100 mg capsule RxNorm: 527838 Take 1 Capsule(s) Oral QHS every night at bedtime Take 1 capsule by mouth once daily at bedtime 07/14/19 22 Inactive Lyrica 50 mg capsule RxNorm: 467812 Take 1 Capsule(s) Oral QAM every morning Take 1 capsule by mouth once daily 07/14/19 22 Inactive Levemir FlexTouch U-100 Insulin 100 unit/mL (3 mL) subcutaneous pen RxNorm: 212066 Inject 83 Unit(s) Subcutaneous BID 07/08/19 22 022 Inactive d/c 80units BID Accu-Chek Guide Glucose Meter RxNorm: Use 1 Miscellaneous UD as directed Use glucose meter to monitor blood glucose 4 times daily and as needed. Dx:06/05/19 No Stop Date Active ok to substitute with any covered alternative meter Accu-Chek Guide Glucose Meter RxNorm: Use 1 Miscellaneous UD as directed Use glucose meter to monitor blood glucose 4 times daily and as needed. Dx:06/05/19 022 Inactive ok to substitute with any covered alternative meter Novofine Autocover 30 gauge x 1/3 needle RxNorm: Use 1 Miscellaneous UD as directed Use 1 needle as directed to administer insulin. Dx:. 06/05/19 022 Inactive ok to substitute with any covered alternative pen needle Novofine Autocover 30 gauge x 1/3 needle RxNorm: Use 1 Miscellaneous UD as directed Use 1 needle as directed to administer insulin 5 times a day Dx:. 06/05/19 022 Inactive ok to substitute with any covered alternative pen needle Accu-Chek Guide test strips RxNorm: Use 1 Test Strip QID Use 1 test strip to monitor blood glucose 4 times daily and as needed. Dx:06/05/19 022 Inactive ok to substitute with any covered alternative test strip Accu-Chek Guide test strips RxNorm: Use 1 Test Strip QID Use 1 test strip to monitor blood glucose 4 times daily and as needed. Dx:06/05/19 022 Inactive ok to substitute with any covered alternative test strip hydralazine 50 mg tablet RxNorm: 233829 Take 1 Tablet(s) Oral QID 05/05/20 Inactive isosorbide mononitrate ER 30 mg tablet,extended release 24 hr RxNorm: 317705 Take 1 Tablet(s) Oral QD 05/05/20 No Stop Date Active venlafaxine ER 225 mg tablet,extended release 24 hr RxNorm: 314912 Take 1 Tablet(s) Oral QD 05/05/20 Inactive venlafaxine ER 225 mg tablet,extended release 24 hr RxNorm: 653030 Take 1 Tablet(s) Oral QD 05/05/20 Inactive hydralazine 50 mg tablet RxNorm: 288364 Take 1 Tablet(s) Oral QID 05/05/20 Inactive aspirin 81 mg tablet,delayed release RxNorm: 301873 Take 1 Tablet(s) Oral QD 03/31/20 Inactive Vitamin D2 1,250 mcg (50,000 unit) capsule RxNorm: 7222207 Take 1 Capsule(s) Oral QW once a week x 12 weeks 03/31/20 Inactive Zetia 10 mg tablet RxNorm: 728635 Take 1 Tablet(s) Oral QD 03/31/20 Inactive Vitamin D2 1,250 mcg (50,000 unit) capsule RxNorm: 9720708 Take 1 Capsule(s) Oral QW once a week 03/31/20 Inactive Zetia 10 mg tablet RxNorm: 133027 Take 1 Tablet(s) Oral QD 03/31/20 Inactive hydralazine 25 mg tablet RxNorm: 341485 Take 1 Tablet(s) Oral QID 03/31/20 Inactive hydralazine 25 mg tablet RxNorm: 161874 Take 1 Tablet(s) Oral QID 03/31/20 021 Inactive hydralazine 10 mg tablet RxNorm: 345154 Take 1 Tablet(s) Oral QID 03/03/20 021 Inactive cephalexin 500 mg tablet RxNorm: 578507 Take 1 Tablet(s) Oral QID 02/27/20 021 Inactive cephalexin 500 mg tablet RxNorm: 502536 Take 1 Tablet(s) Oral QID 02/27/20 021 Inactive lisinopril 40 mg tablet RxNorm: 799033 Take 1 Tablet(s) Oral QD 02/11/20 023 Inactive Eliquis 5 mg tablet RxNorm: 5142154 Take 1 Tablet(s) Oral BID 01/05/20 21 022 Inactive Eliquis 5 mg tablet RxNorm: 5985965 Take 2 Tablet(s) Oral QD 01/01/20 021 Inactive Lyrica 50 mg capsule RxNorm: 986038 Take 1 Capsule(s) Oral QAM every morning 12/24/19 021 Inactive Lyrica 100 mg capsule RxNorm: 824230 Take 1 Capsule(s) Oral QHS every night at bedtime 12/24/19 021 Inactive clotrimazole 1 % topical cream RxNorm: 390881 Apply to right foot and toes Topical BID 12/04/19 21 023 Inactive metoprolol succinate ER 200 mg tablet,extended release 24 hr RxNorm: 327729 Take 1 Tablet(s) Oral QD 12/04/19 023 Inactive ciprofloxacin 500 mg tablet RxNorm: 676695 Take 1 Tablet(s) Oral QD 11/30/19 21 021 Inactive DX ofloxacin otic drops Accu-Chek Guide test strips RxNorm: USE 1 TO CHECK GLUCOSE 4 TIMES DAILY AND NEEDED 11/15/19 21 023 Inactive Blood Glucose Test strips RxNorm: Use 1 Test Strip QID at PRN 11/05/19 21 023 Inactive E11.42 lisinopril 30 mg tablet RxNorm: 910430 Take 1 Tablet(s) Oral QD 10/30/19 21 021 Inactive lisinopril 20 mg tablet RxNorm: 496641 Take 1 Tablet(s) Oral QD 10/23/19 21 Inactive lisinopril 20 mg tablet RxNorm: 299217 Take 1 Tablet(s) Oral QD 10/23/19 21 Inactive lisinopril 10 mg tablet RxNorm: 953244 Take 1 Tablet(s) Oral QD 10/02/19 21 Inactive icosapent ethyl 1 gram capsule RxNorm: 2086083 Take 2 Capsule(s) (2 gm) Oral BID with meals 09/12/19 022 Inactive Okay to dispense one 2gm tab if you have that available. icosapent ethyl 1 gram capsule RxNorm: 5015096 Take 2 Capsule(s) Oral BID 09/12/19 021 Inactive Okay to dispense one 2gm tab if you have that available. amlodipine 10 mg tablet RxNorm: 140175 Take 1 Tablet(s) Oral QD 09/04/19 Inactive aspirin 81 mg tablet,delayed release RxNorm: 283522 Take 1 Tablet(s) Oral QD 09/04/19 21 021 Inactive Levemir FlexTouch U-100 Insulin 100 unit/mL (3 mL) subcutaneous pen RxNorm: 693521 Inject 150 Unit(s) Subcutaneous BID 09/04/19 Inactive venlafaxine ER 150 mg tablet,extended release 24 hr RxNorm: 196717 Take 1 Tablet(s) Oral QD 09/04/19 Inactive clotrimazole-betame thasone 1 %-0.05 % topical cream RxNorm: 726047 Apply to rash on red area on left abdomen/chest Topical BID 08/10/19 21 Inactive amlodipine 5 mg tablet RxNorm: 563686 Take 1 Tablet(s) Oral QD 07/31/19 21 Inactive cephalexin 500 mg tablet RxNorm: 939861 Take 1 Tablet(s) Oral BID BID - Twice Daily 07/31/19 21 021 Inactive Start 08/01/20 pantoprazole 40 mg tablet,delayed release RxNorm: 272972 Take 1 Tablet(s) Oral QAM every morning 02/22 022 Inactive senna 8.6 mg tablet RxNorm: 488574 Take 1 Tablet(s) Oral QD 07/08/19 21 022 Inactive pravastatin 80 mg tablet RxNorm: 355930 Take 1 Tablet(s) Oral QHS every night at bedtime 07/08/19 022 Inactive clotrimazole 1 % topical cream RxNorm: 720391 Apply to bilateral groin areas Topical BID 07/08/19 21 Inactive carbamazepine 200 mg tablet RxNorm: 323565 Take 1 Tablet(s) Oral BID 07/08/19 21 022 Inactive torsemide 20 mg tablet RxNorm: 299883 Take 1 Tablet(s) Oral QD 07/08/19 21 023 Inactive clopidogrel 75 mg tablet RxNorm: 366988 Take 1 Tablet(s) Oral QD 07/08/19 021 Inactive Blood Glucose Test strips RxNorm: Use 1 Test Strip QID at PRN 07/08/19 Inactive E11.42 Novolog Flexpen U-100 Insulin aspart 100 unit/mL (3 mL) subcutaneous RxNorm: 6760833 Administer per sliding scale Milliliter(s) Subcutaneous TID 151-200: 10 u; 201-250: 20 u; 251-300: 30 u; 301-350: 40 u; 351-400: 50 u. 07/08/19 21 Inactive lisinopril 5 mg tablet RxNorm: 286686 Take 1 Tablet(s) Oral QD 07/08/19 Inactive Novolog Flexpen U-100 Insulin aspart 100 unit/mL (3 mL) subcutaneous RxNorm: 1889687 Inject 85 Unit(s) Subcutaneous TID 07/08/19 022 Inactive metoprolol succinate ER 200 mg tablet,extended release 24 hr RxNorm: 122859 Take 1 Tablet(s) Oral QD 07/08/19 21 021 Inactive Vitamin D3 25 mcg (1,000 unit) tablet RxNorm: 201968 Take 1 Tablet(s) Oral QD 07/08/19 21 021 Inactive isosorbide dinitrate 30 mg tablet RxNorm: 266724 Take 1 Tablet(s) Oral QD 07/08/19 21 021 Inactive Levemir FlexTouch U-100 Insulin 100 unit/mL (3 mL) subcutaneous pen RxNorm: 942508 Inject 140 Unit(s) Subcutaneous BID 07/08/19 021 Inactive venlafaxine 75 mg tablet RxNorm: 593579 Take 1 Tablet(s) Oral QD 07/08/19 021 Inactive acetaminophen 500 mg tablet RxNorm: 955474 Take 1 Tablet(s) Oral TID as needed for headache 06/18/19 Inactive acetaminophen 500 mg tablet RxNorm: 710132 Take 1 Tablet(s) Oral TID as needed for headache 06/18/19 021 Inactive Lyrica 100 mg capsule RxNorm: 604279 Take 1 Capsule(s) Oral QHS every night at bedtime 06/11/19 21 021 Inactive Lyrica 50 mg capsule RxNorm: 730265 Take 1 Capsule(s) Oral QAM every morning 06/10/19 021 Inactive hydrocortisone 2.5 % topical cream RxNorm: 147656 Apply to bilateral groin creases Topical BID 05/15/20 20 021 Inactive clotrimazole 1 % topical cream RxNorm: 850828 Apply to bilateral groin areas Topical BID 05/15/20 20 021 Inactive Lyrica 50 mg capsule RxNorm: 385507 Take 1 Capsule(s) Oral QAM every morning 05/14/20 20 020 Inactive Lyrica 100 mg capsule RxNorm: 850133 Take 1 Capsule(s) Oral QHS every night [...] Inactive Nystop 100,000 unit/gram topical powder RxNorm: 842119 Apply to abd folds, under breasts and L side of groin Topical BID x 14 days, then BID PRN 04/08/20 20 Inactive dx: yeast dermatitis Lyrica 100 mg capsule RxNorm: 846074 Take 1 Capsule(s) Oral QHS every night at bedtime 03/13/20 20 Inactive Lyrica 50 mg capsule RxNorm: 778613 Take 1 Capsule(s) Oral QAM every morning 03/13/20 20 Inactive ketoconazole 2 % shampoo RxNorm: 735886 Apply Topical two times a week with showers 03/11/20 20 Inactive cholecalciferol (vitamin D3) 50 mcg (2,000 unit) tablet RxNorm: 709321 Take 1 Tablet(s) Oral QD 03/11/20 20 Inactive Zetia 10 mg tablet RxNorm: 174598 Take 1 Tablet(s) Oral QD 03/07/20 20 Inactive Zetia 10 mg tablet RxNorm: 504534 Take 1 Tablet(s) Oral QD 03/07/20 20 Inactive Lyrica 50 mg capsule RxNorm: 266206 Take 1 Capsule(s) Oral QAM every morning 02/15/20 20 Inactive Lyrica 100 mg capsule RxNorm: 668779 Take 1 Capsule(s) Oral QHS every night at bedtime 02/15/20 20 Inactive Lyrica 100 mg capsule RxNorm: 709284 Take 1 Capsule(s) Oral QHS every night at bedtime 02/15/20 20 Inactive Lyrica 50 mg capsule RxNorm: 939673 Take 1 Capsule(s) Oral QAM every morning 02/15/20 20 020 Inactive venlafaxine ER 75 mg capsule,extended release 24 hr RxNorm: 076459 Take 3 Capsule(s) Oral QD 06/12/19 22 Active polyethylene glycol 3350 17 gram/dose oral powder RxNorm: 585620 Take 17=1 capful Gram(s) Oral BID as needed mix with 4-8oz of liquid 06/12/19 22 Active Levemir FlexTouch U-100 Insulin 100 unit/mL (3 mL) subcutaneous pen RxNorm: 442668 Inject 80 Unit(s) Subcutaneous BID 07/14/19 23 023 Inactive loperamide 2 mg capsule RxNorm: 909677 Take 1 Capsule(s) Oral QID as needed 06/12/19 22 Active Novolog Flexpen U-100 Insulin aspart 100 unit/mL (3 mL) subcutaneous RxNorm: 8608410 Insert 30 Unit(s) Subcutaneous TID with meals 10/08/19 22 022 Inactive Medication Administered No Medication Administered data [...] [facility]: [address], [address] [id number] [place] Referral Records Received 09/21/2022 Referral: [facility]: [address] [id number] [place] Referral Completed 05/28/2021 Referral: General Cardiology Referral Complet ed 01/03/2021 Referral: General Psychologist Referral Close d Instructions Comment Date Leonid is a Male being seen living at [facility]. Initial BPS visit 01/2020. PMHx including DMII, CAD w/ 5 stents, Depression, Seizure Disorder and CKD stage 3. He moved into [facility] in 12/2019 but after a hospitalization 05/2021 he moved to the [facility] to have closer nursing attention. Sister Jyotsna involved in his care cell# [phone] Guardian: Don (tapan met in person 09/01/21), now has Lexii (same group as don)Lab Schedule: * 10/06/2022
--- OUTSIDE RECORDS SUMMARY | 2021-08-14 19:00 | XMS_ITS | CCD ---
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 Name Role Phone Tapan Shirley PA-C Primary Care Provider Unavailabl e Tapan Shirley PA-C Chronic Care Management Unavaila ble Summary Purpose DataExchange Insurance Providers Payer name Policy type / Coverage type Covered green party ID Effective Begin Date Effective End Date [place] [id number] Unknown [place] [id number] Unknown Unknown Family history Runs in the family Diagnosis Age At Onset No Known Diseases N/A Social History Social History Element Codes Description Effec tive Dates Living arrangements Unknown Custodial 09/03/[address]: 8068621 Non-Smoker / No History of Smoking 09/02/[address]: 499326708 No Alcohol Consum ption 09/02/2020 Allergies, Adverse Reactions, Alerts Substance Reaction Codes Entered Date Inactivated Date Status LISINOPRIL RxNorm: 65843 02/12/2020 No Inactive Da te Active Metformin [...] 08/04/2021 Active Coronary artery disease invo lving [place] coronary artery of [place] heart, angina presence unspecified ICD-10: I25.10 ICD-9: [...] Fill Instructions Lyrica 100 mg capsule RxNorm: 994924 Take 1 Capsule(s) Oral QHS every night at bedtime Take 1 capsule by mouth once daily at bedtime 08/16/19 22 022 Inactive Lyrica 50 mg capsule RxNorm: 040982 Take 1 Capsule(s) Oral QAM every morning Take 1 capsule by mouth once daily 08/16/19 22 022 Inactive Levemir FlexTouch U-100 Insulin 100 unit/mL (3 mL) subcutaneous pen RxNorm: 030893 Inject 86 Unit(s) Subcutaneous BID 08/05/19 22 022 Inactive d/c 83units BID Lyrica 100 mg capsule RxNorm: 700277 Take 1 Capsule(s) Oral QHS every night at bedtime Take 1 capsule by mouth once daily at bedtime 07/14/19 22 Inactive Lyrica 50 mg capsule RxNorm: 157931 Take 1 Capsule(s) Oral QAM every morning Take 1 capsule by mouth once daily 07/14/19 22 Inactive Levemir FlexTouch U-100 Insulin 100 unit/mL (3 mL) subcutaneous pen RxNorm: 146012 Inject 83 Unit(s) Subcutaneous BID 07/08/19 22 [...] test strip hydralazine 50 mg tablet RxNorm: 579658 Take 1 Tablet(s) Oral QID 05/05/20 Inactive isosorbide mononitrate ER 30 mg tablet,extended release 24 hr RxNorm: 102160 Take 1 Tablet(s) Oral QD 05/05/20 No Stop Date Active venlafaxine ER 225 mg tablet,extended release 24 hr RxNorm: 995837 Take 1 Tablet(s) Oral QD 05/05/20 Inactive venlafaxine ER 225 mg tablet,extended release 24 hr RxNorm: 428622 Take 1 Tablet(s) Oral QD 05/05/20 Inactive hydralazine 50 mg tablet RxNorm: 597932 Take 1 Tablet(s) Oral QID 05/05/20 Inactive aspirin 81 mg tablet,delayed release RxNorm: 747125 Take 1 Tablet(s) Oral QD 03/31/20 Inactive Vitamin D2 1,250 mcg (50,000 unit) capsule RxNorm: 1594099 Take 1 Capsule(s) Oral QW once a week x 12 weeks 03/31/20 Inactive Zetia 10 mg tablet RxNorm: 000471 Take 1 Tablet(s) Oral QD 03/31/20 Inactive Vitamin D2 1,250 mcg (50,000 unit) capsule RxNorm: 7021017 Take 1 Capsule(s) Oral QW once a week 03/31/20 Inactive Zetia 10 mg tablet RxNorm: 915619 Take 1 Tablet(s) Oral QD 03/31/20 Inactive hydralazine 25 mg tablet RxNorm: 064137 Take 1 Tablet(s) Oral QID 03/31/20 Inactive hydralazine 25 mg tablet RxNorm: 473170 Take 1 Tablet(s) Oral QID 03/31/20 021 Inactive hydralazine 10 mg tablet RxNorm: 469076 Take 1 Tablet(s) Oral QID 03/03/20 021 Inactive cephalexin 500 mg tablet RxNorm: 517974 Take 1 Tablet(s) Oral QID 02/27/20 021 Inactive cephalexin 500 mg tablet RxNorm: 975233 Take 1 Tablet(s) Oral QID 02/27/20 021 Inactive lisinopril 40 mg tablet RxNorm: 074433 Take 1 Tablet(s) Oral QD 02/11/20 023 Inactive Eliquis 5 mg tablet RxNorm: 5875562 Take 1 Tablet(s) Oral BID 01/05/20 21 022 Inactive Eliquis 5 mg tablet RxNorm: 8029763 Take 2 Tablet(s) Oral QD 01/01/20 021 Inactive Lyrica 50 mg capsule RxNorm: 820264 Take 1 Capsule(s) Oral QAM every morning 12/24/19 021 Inactive Lyrica 100 mg capsule RxNorm: 066919 Take 1 Capsule(s) Oral QHS every night at bedtime 12/24/19 021 Inactive clotrimazole 1 % topical cream RxNorm: 745286 Apply to right foot and toes Topical BID 12/04/19 21 023 Inactive metoprolol succinate ER 200 mg tablet,extended release 24 hr RxNorm: 714271 Take 1 Tablet(s) Oral QD 12/04/19 023 Inactive ciprofloxacin 500 mg tablet RxNorm: 783809 Take 1 Tablet(s) Oral QD 11/30/19 21 021 Inactive DX ofloxacin otic drops Accu-Chek Guide test strips RxNorm: USE 1 TO CHECK GLUCOSE 4 TIMES DAILY AND NEEDED 11/15/19 21 023 Inactive Blood Glucose Test strips RxNorm: Use 1 Test Strip QID at PRN 11/05/19 21 023 Inactive E11.42 lisinopril 30 mg tablet RxNorm: 294399 Take 1 Tablet(s) Oral QD 10/30/19 21 021 Inactive lisinopril 20 mg tablet RxNorm: 600720 Take 1 Tablet(s) Oral QD 10/23/19 21 Inactive lisinopril 20 mg tablet RxNorm: 038382 Take 1 Tablet(s) Oral QD 10/23/19 21 Inactive lisinopril 10 mg tablet RxNorm: 427251 Take 1 Tablet(s) Oral QD 10/02/19 21 Inactive icosapent ethyl 1 gram capsule RxNorm: 3963023 Take 2 Capsule(s) (2 gm) Oral BID with meals 09/12/19 022 Inactive Okay to dispense one 2gm tab if you have that available. icosapent ethyl 1 gram capsule RxNorm: 2836672 Take 2 Capsule(s) Oral BID 09/12/19 021 Inactive Okay to dispense one 2gm tab if you have that available. amlodipine 10 mg tablet RxNorm: 626100 Take 1 Tablet(s) Oral QD 09/04/19 Inactive aspirin 81 mg tablet,delayed release RxNorm: 865478 Take 1 Tablet(s) Oral QD 09/04/19 21 021 Inactive Levemir FlexTouch U-100 Insulin 100 unit/mL (3 mL) subcutaneous pen RxNorm: 275527 Inject 150 Unit(s) Subcutaneous BID 09/04/19 Inactive venlafaxine ER 150 mg tablet,extended release 24 hr RxNorm: 805367 Take 1 Tablet(s) Oral QD 09/04/19 Inactive clotrimazole-betame thasone 1 %-0.05 % topical cream RxNorm: 715236 Apply to rash on red area on left abdomen/chest Topical BID 08/10/19 21 Inactive amlodipine 5 mg tablet RxNorm: 883708 Take 1 Tablet(s) Oral QD 07/31/19 21 Inactive cephalexin 500 mg tablet RxNorm: 591370 Take 1 Tablet(s) Oral BID BID - Twice Daily 07/31/19 21 021 Inactive Start 08/01/20 pantoprazole 40 mg tablet,delayed release RxNorm: 031869 Take 1 Tablet(s) Oral QAM every morning 02/22 022 Inactive senna 8.6 mg tablet RxNorm: 823279 Take 1 Tablet(s) Oral QD 07/08/19 21 022 Inactive pravastatin 80 mg tablet RxNorm: 272667 Take 1 Tablet(s) Oral QHS every night at bedtime 07/08/19 022 Inactive clotrimazole 1 % topical cream RxNorm: 538887 Apply to bilateral groin areas Topical BID 07/08/19 21 Inactive carbamazepine 200 mg tablet RxNorm: 603056 Take 1 Tablet(s) Oral BID 07/08/19 21 022 Inactive torsemide 20 mg tablet RxNorm: 227970 Take 1 Tablet(s) Oral QD 07/08/19 21 023 Inactive clopidogrel 75 mg tablet RxNorm: 066916 Take 1 Tablet(s) Oral QD 07/08/19 021 Inactive Blood Glucose Test strips RxNorm: Use 1 Test Strip QID at PRN 07/08/19 Inactive E11.42 Novolog Flexpen U-100 Insulin aspart 100 unit/mL (3 mL) subcutaneous RxNorm: 7939206 Administer per sliding scale Milliliter(s) Subcutaneous TID 151-200: 10 u; 201-250: 20 u; 251-300: 30 u; 301-350: 40 u; 351-400: 50 u. 07/08/19 21 Inactive lisinopril 5 mg tablet RxNorm: 138104 Take 1 Tablet(s) Oral QD 07/08/19 Inactive Novolog Flexpen U-100 Insulin aspart 100 unit/mL (3 mL) subcutaneous RxNorm: 1028200 Inject 85 Unit(s) Subcutaneous TID 07/08/19 022 Inactive metoprolol succinate ER 200 mg tablet,extended release 24 hr RxNorm: 097312 Take 1 Tablet(s) Oral QD 07/08/19 21 021 Inactive Vitamin D3 25 mcg (1,000 unit) tablet RxNorm: 346241 Take 1 Tablet(s) Oral QD 07/08/19 21 021 Inactive isosorbide dinitrate 30 mg tablet RxNorm: 669304 Take 1 Tablet(s) Oral QD 07/08/19 21 021 Inactive Levemir FlexTouch U-100 Insulin 100 unit/mL (3 mL) subcutaneous pen RxNorm: 641530 Inject 140 Unit(s) Subcutaneous BID 07/08/19 021 Inactive venlafaxine 75 mg tablet RxNorm: 690800 Take 1 Tablet(s) Oral QD 07/08/19 021 Inactive acetaminophen 500 mg tablet RxNorm: 976339 Take 1 Tablet(s) Oral TID as needed for headache 06/18/19 Inactive acetaminophen 500 mg tablet RxNorm: 067613 Take 1 Tablet(s) Oral TID as needed for headache 06/18/19 021 Inactive Lyrica 100 mg capsule RxNorm: 376121 Take 1 Capsule(s) Oral QHS every night at bedtime 06/11/19 21 021 Inactive Lyrica 50 mg capsule RxNorm: 344606 Take 1 Capsule(s) Oral QAM every morning 06/10/19 021 Inactive hydrocortisone 2.5 % topical cream RxNorm: 429766 Apply to bilateral groin creases Topical BID 05/15/20 20 021 Inactive clotrimazole 1 % topical cream RxNorm: 735354 Apply to bilateral groin areas Topical BID 05/15/20 20 021 Inactive Lyrica 50 mg capsule RxNorm: 058602 Take 1 Capsule(s) Oral QAM every morning 05/14/20 20 020 Inactive Lyrica 100 mg capsule RxNorm: 511720 Take 1 Capsule(s) Oral QHS every night [...] Inactive Nystop 100,000 unit/gram topical powder RxNorm: 587824 Apply to abd folds, under breasts and L side of groin Topical BID x 14 days, then BID PRN 04/08/20 20 Inactive dx: yeast dermatitis Lyrica 100 mg capsule RxNorm: 172694 Take 1 Capsule(s) Oral QHS every night at bedtime 03/13/20 20 Inactive Lyrica 50 mg capsule RxNorm: 535395 Take 1 Capsule(s) Oral QAM every morning 03/13/20 20 Inactive ketoconazole 2 % shampoo RxNorm: 937271 Apply Topical two times a week with showers 03/11/20 20 Inactive cholecalciferol (vitamin D3) 50 mcg (2,000 unit) tablet RxNorm: 520711 Take 1 Tablet(s) Oral QD 03/11/20 20 Inactive Zetia 10 mg tablet RxNorm: 427244 Take 1 Tablet(s) Oral QD 03/07/20 20 Inactive Zetia 10 mg tablet RxNorm: 373011 Take 1 Tablet(s) Oral QD 03/07/20 20 Inactive Lyrica 50 mg capsule RxNorm: 591028 Take 1 Capsule(s) Oral QAM every morning 02/15/20 20 Inactive Lyrica 100 mg capsule RxNorm: 233985 Take 1 Capsule(s) Oral QHS every night at bedtime 02/15/20 20 Inactive Lyrica 100 mg capsule RxNorm: 301136 Take 1 Capsule(s) Oral QHS every night at bedtime 02/15/20 20 Inactive Lyrica 50 mg capsule RxNorm: 443203 Take 1 Capsule(s) Oral QAM every morning 02/15/20 20 020 Inactive venlafaxine ER 75 mg capsule,extended release 24 hr RxNorm: 392641 Take 3 Capsule(s) Oral QD 06/12/19 22 Active polyethylene glycol 3350 17 gram/dose oral powder RxNorm: 881002 Take 17=1 capful Gram(s) Oral BID as needed mix with 4-8oz of liquid 06/12/19 22 Active Levemir FlexTouch U-100 Insulin 100 unit/mL (3 mL) subcutaneous pen RxNorm: 229551 Inject 80 Unit(s) Subcutaneous BID 07/14/19 23 023 Inactive loperamide 2 mg capsule RxNorm: 518210 Take 1 Capsule(s) Oral QID as needed 06/12/19 22 Active Novolog Flexpen U-100 Insulin aspart 100 unit/mL (3 mL) subcutaneous RxNorm: 5847437 Insert 30 Unit(s) Subcutaneous TID with meals [...] [facility] WPtel: [address], [address] [id number] [place] Referral Records Received 09/21/2022 Referral: [facility] [address]: [address] [id number] [place] Referral Completed 05/28/2021 Referral: General Cardiology Referral Complet ed 01/03/2021 Referral: General Psychologist Referral Close d Instructions Comment Date Leonid is a Male being seen living at [facility]. Initial [facility] visit 01/2020. PMHx including DMII, CAD w/ 5 stents, Depression, Seizure Disorder and CKD stage 3. He moved into [facility] in 12/2019 but after a hospitalization 05/2021 he moved to the [facility] to have closer nursing attention. Sister Jyotsna involved in his care cell# [phone] Guardian: Don (tapan met in person 09/01/21), now has Lexii (same group as don)Lab Schedule: * 10/06/2022
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
--- OUTSIDE RECORDS SUMMARY | 2022-05-04 19:00 | XMS_ITS | CCD ---
Author Name Alissa Zheng MD her Address [address] [place] [address] Phone Organization [facility] Phone Care Team Providers Care Entry Level Receptionist Name Role Phone Rosalina Shirley PA-C Primary Care Provider Unavailabl e Rosalina Shirley PA-C Chronic Care Management Unavaila ble Summary Purpose DataExchange Insurance Providers Payer name Policy type / Coverage type Covered green party ID Effective Begin Date Effective End Date [place] Part B [id number] Unknown Unknown Medicaid [place] Medicare Part B [id number] Unknown Unknown Family history Sister Brittany Suggs Diagnosis Age At Onset No Family Disease Entered N/A Runs in the family Diagnosis Age At Onset No Known Diseases N/A Sister Blanka Mcduffie Diagnosis Age At Onset No Family Disease Entered N/A Social History Social History Element Codes Description Effec tive Dates Marital status Unknown Single 10/07/2021 Living arrangements Unknown Residential 09/03/[address]: 6988415 Non-Smoker / No History of Smoking 09/02/[address]: 356744984 No Alcohol Consum ption 09/02/2020 Allergies, Adverse Reactions, Alerts Substance Reaction Codes Entered Date Inactivated Date Status LISINOPRIL RxNorm: 82205 02/12/2020 No Inactive Da te Active Metformin HCl Unknown 02/12/2020 No Inactive Cristiano e Active Problems Condition Codes Effective Dates Condition St atus Hyperlipidemia associated wi th type 2 diabetes mellitus ICD-10: E11.69 ICD-9: 250.80 05/05/2022 Active Hypertensive heart disease w ithout heart failure ICD-10: I11.9 ICD-9: 402.90 05/05/2022 Active Stage 2 chronic kidney disea se due to type 2 diabetes mellitus ICD-10: E11.22 ICD-9: 250.40 05/05/2022 Active Type 2 diabetes mellitus wit h diabetic polyneuropathy, with long-term current use of insulin ICD-10: E11.42 ICD-9: 250.60 05/05/2022 Active High risk medication use ICD-10: Z79.899 ICD-9: V58.69 05/01/2022 Active Major depression, recurrent ICD-10: F33. 9 ICD-9: 296.30 05/01/2022 Active Vitamin D deficiency ICD-10: E55.9 ICD-9: 268.9 05/01/2022 Active Coronary artery disease invo lving [place] coronary artery of [place] heart, angina presence unspecified ICD-10: I25.10 ICD-9: 414.01 04/07/2022 Active Shortness of breath ICD-10: R06.02 ICD-9: 786.05 04/07/2022 Active Seizure disorder ICD-10: G40.909 ICD-9: [...] immunization ICD-10: Z23 ICD-9: V03.89 02/10/2022 Resolved shelter (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 insulin ICD-10: Z79.4 02/10 [...] aspart 100 unit/mL (3 mL) subcutaneous RxNorm: 6255585 Inject 10 Unit(s) Subcutaneous QHS every night at bedtime with nighttime snack 04/08/20 022 Inactive Novolog Flexpen U-100 Insulin aspart 100 unit/mL (3 mL) subcutaneous RxNorm: 5269329 Inject 42 Unit(s) Subcutaneous TID in addition to sliding scale 04/08/20 022 Inactive d/c 36u albuterol sulfate HFA 90 mcg/actuation aerosol inhaler RxNorm: 9929497 Take 2 Puff(s) Inhalation Q4H every four hours as needed as needed for SOB, cough, or wheezing 04/07/20 22 030 Active diphenhydramine 50 mg tablet RxNorm: 3461674 Take 1 Tablet(s) Oral Q6H every 6 hours as needed 04/06/20 22 022 Inactive diphenhydramine 50 mg tablet RxNorm: 9092175 1 Tablet(s) Oral Q6H every 6 hours as needed 04/06/20 22 022 Inactive Abilify 15 mg tablet RxNorm: 429427 1/2 Tablet(s) Oral QD 03/10/20 22 023 Inactive Shingrix (PF) 50 mcg/0.5 mL intramuscular suspension, kit RxNorm: 2280148 Administer 1/2 Milliliter(s) Intramuscular QD one time shingrix step 2 ( step 1 given 11/04/21) WITH needle - Nursing please administer upon arrival and once administered 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, suction worker, 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, and lot# so we can update [facility]IC 02/18/20 22 022 Inactive dispense with needle Shingrix (PF) 50 mcg/0.5 mL intramuscular suspension, kit RxNorm: 4294834 Administer 1/2 Milliliter(s) Intramuscular QD one time shingrix step 2 ( step 1 given 11/04/21) WITH needle - Nursing please administer upon arrival and once administered 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, suction worker, 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, and lot# so we can update MIIC 02/18/20 22 022 Inactive dispense with needle acetaminophen 500 mg tablet RxNorm: 044444 Take 1 Tablet(s) Oral TID 01/08/20 023 Active d/c PRN order Lyrica 150 mg capsule RxNorm: 554212 Take 1 Capsule(s) Oral QHS every night at bedtime 01/08/20 22 023 Inactive d/c 100mg dose polyethylene glycol 3350 17 gram/dose oral powder RxNorm: 906048 Take 17=1 capful Gram(s) Oral QD mix with 4-8oz of liquid 01/08/20 22 023 Active take this in addition to BID prn order Lyrica 100 mg capsule RxNorm: 271459 Take 1 Capsule(s) Oral QAM every morning 01/08/20 22 022 Inactive d/c 50mg dose Abilify 5 mg tablet RxNorm: 121267 Take 1 Tablet(s) Oral QD take 1 tab po QD #30 refill 5 dx: MDD 12/12/19 22 022 Inactive Abilify 5 mg tablet RxNorm: 348160 Take 1 Tablet(s) Oral QD take 1 tab po QD #30 refill 5 dx: MDD 12/12/19 22 022 Inactive chlorthalidone 25 mg tablet RxNorm: 772400 Take 1 Tablet(s) Oral QAM every morning 12/10/19 22 023 Active Novolog Flexpen U-100 Insulin aspart 100 unit/mL (3 mL) subcutaneous RxNorm: 5315559 Inject 42 Unit(s) Subcutaneous TID in addition to sliding scale 12/10/19 22 022 Inactive d/c 36u pregabalin 50 mg capsule RxNorm: 148528 Take 1 Capsule(s) Oral QAM every morning 11/12/19 22 022 Inactive tetanus-diphtheria toxoids-Td 2 Lf unit-2 Lf unit/0.5 mL IM suspension RxNorm: 139 Take 0.5 Miscellaneous Intramuscular 11/12/19 22 022 Inactive need tdap - nursing to administer upon arrival pregabalin 50 mg capsule RxNorm: 603228 Take 1 Capsule(s) Oral QAM every morning 10/16/19 22 022 Inactive pregabalin 50 mg capsule RxNorm: 609004 Take 1 Capsule(s) Oral QAM every morning 10/16/19 22 022 Inactive pregabalin 50 mg capsule RxNorm: 910941 1 Capsule(s) Oral QAM every morning 10/15/19 22 022 Inactive Shingrix (PF) 50 mcg/0.5 mL intramuscular suspension, kit RxNorm: 8926113 Administer 1/2 Milliliter(s) Intramuscular one time Nursing please administer upon arrival and once administered 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, suction worker, 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 10/09/19 22 022 Inactive shingrix step 1 Shingrix (PF) 50 mcg/0.5 mL intramuscular suspension, kit RxNorm: 3400595 Administer 1/2 Milliliter(s) Intramuscular one time Nursing please administer upon arrival and once administered 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, suction worker, 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 10/09/19 22 Inactive shingrix step 1 cholecalciferol (vitamin D3) 1,250 mcg (50,000 unit) capsule RxNorm: 914594 Take 1 Capsule(s) Oral QW once a [...] aspart 100 unit/mL (3 mL) subcutaneous RxNorm: 3641180 Inject 10 Unit(s) Subcutaneous QHS every night at bedtime with nighttime snack 10/08/19 22 Inactive Shingrix (PF) 50 mcg/0.5 mL intramuscular suspension, kit RxNorm: 3631902 ADMINISTER 2-DOSE SERIES PER CDC GUIDELINES 10/08/19 22 Active Shingrix (PF) 50 mcg/0.5 mL intramuscular suspension, kit RxNorm: 6370363 ADMINISTER 2-DOSE SERIES PER CDC GUIDELINES 10/08/19 22 022 Inactive Novolog Flexpen U-100 Insulin aspart 100 unit/mL (3 mL) subcutaneous RxNorm: 1131522 Inject 36 Unit(s) Subcutaneous TID in addition to sliding scale 10/08/19 22 Inactive Novofine Autocover 30 gauge x 1/3 needle RxNorm: Use 1 Miscellaneous UD as directed Use 1 needle as directed to administer insulin 5 times a day Dx:E11.42. 10/03/19 22 Inactive ok to substitute with any covered alternative pen needle benzoyl peroxide 10 % topical cleanser RxNorm: 301323 Apply 1 Application Topical QD apply to face, wash rinse and dry once daily (may change to QOD if drying) 08/19/19 22 022 Inactive (%covered by insurance) #60ml refill 11 dx: acne benzoyl peroxide 10 % topical cleanser RxNorm: 130750 Apply 1 Application Topical QD apply to face, wash rinse and dry once daily (may change to QOD if drying) 08/19/19 22 022 Inactive (%covered by insurance) #60ml refill 11 dx: acne benzoyl peroxide 10 % topical cleanser RxNorm: 851144 Apply 1 Application Topical QD apply to face, wash rinse and dry once daily (may change to QOD if drying) 08/19/19 22 022 Inactive (%covered by insurance) #60ml refill 11 dx: acne Lyrica 50 mg capsule RxNorm: 586759 Take 1 Capsule(s) Oral QAM every morning Take 1 capsule by mouth once daily 08/19/19 22 022 Inactive benzoyl peroxide 10 % topical cleanser RxNorm: 262849 Apply 1 Application Topical QD apply to face, wash rinse and dry once daily (may change to QOD if drying) 08/19/19 022 Inactive (%covered by insurance) #60ml refill 11 dx: acne Lyrica 100 mg capsule RxNorm: 971080 Take 1 Capsule(s) Oral QHS every night at bedtime Take 1 capsule by mouth once daily at bedtime 08/19/19 22 Inactive Lyrica 100 mg capsule RxNorm: 279670 Take 1 Capsule(s) Oral QHS every night at bedtime Take 1 capsule by mouth once daily at bedtime 08/16/19 22 Inactive Lyrica 50 mg capsule RxNorm: 820665 Take 1 Capsule(s) Oral QAM every morning Take 1 capsule by mouth once daily 08/16/19 22 Inactive Levemir FlexTouch U-100 Insulin 100 unit/mL (3 mL) subcutaneous pen RxNorm: 611790 Inject 86 Unit(s) Subcutaneous BID 08/05/19 22 05/23/2 022 Inactive d/c 83units BID Lyrica 100 mg capsule RxNorm: 715568 Take 1 Capsule(s) Oral QHS every night at bedtime Take 1 capsule by mouth once daily at bedtime 07/14/19 22 Inactive Lyrica 50 mg capsule RxNorm: 088894 Take 1 Capsule(s) Oral QAM every morning Take 1 capsule by mouth once daily 07/14/19 22 Inactive Levemir FlexTouch U-100 Insulin 100 unit/mL (3 mL) subcutaneous pen RxNorm: 913296 Inject 83 Unit(s) Subcutaneous BID 07/08/19 22 Inactive d/c 80units BID Accu-Chek Guide Glucose [...] 4 times daily and as needed. Dx:E1106/05/19 22 022 Inactive ok to substitute with any covered alternative meter Novofine Autocover 30 gauge x 1/3 needle RxNorm: Use 1 Miscellaneous UD as directed Use 1 needle as directed to administer insulin. Dx:E1142. 06/05/19 22 022 Inactive ok to substitute [...] glucose 4 times daily and as needed. Dx:E1142. 06/05/19 22 022 Inactive ok to substitute with any covered alternative test strip Accu-Chek Guide test strips RxNorm: Use 1 Test Strip QID Use 1 test strip to monitor blood glucose 4 times daily and as needed. Dx:E1142. 06/05/19 Inactive ok to substitute with any covered alternative test strip isosorbide mononitrate ER 30 mg tablet,extended release 24 hr RxNorm: 884109 Take 1 Tablet(s) Oral QD 05/05/20 No Stop Date Active hydralazine 50 mg tablet RxNorm: 319747 Take 1 Tablet(s) Oral QID 05/05/20 Inactive venlafaxine ER 225 mg tablet,extended release 24 hr RxNorm: 576356 Take 1 Tablet(s) Oral QD 05/05/20 021 Inactive venlafaxine ER 225 mg tablet,extended release 24 hr RxNorm: 312484 Take 1 Tablet(s) Oral QD 05/05/20 022 Inactive hydralazine 50 mg tablet RxNorm: 798823 Take 1 Tablet(s) Oral QID 05/05/20 Inactive aspirin 81 mg tablet,delayed release RxNorm: 742431 Take 1 Tablet(s) Oral QD 03/31/20 022 Inactive Zetia 10 mg tablet RxNorm: 137214 Take 1 Tablet(s) Oral QD 03/31/20 Inactive Vitamin D2 1,250 mcg (50,000 unit) capsule RxNorm: 8472668 Take 1 Capsule(s) Oral QW once a week x 12 weeks 03/31/20 Inactive Vitamin D2 1,250 mcg (50,000 unit) capsule RxNorm: 2126886 Take 1 Capsule(s) Oral QW once a week 03/31/20 Inactive Zetia 10 mg tablet RxNorm: 581771 Take 1 Tablet(s) Oral QD 03/31/20 Inactive hydralazine 25 mg tablet RxNorm: 667637 Take 1 Tablet(s) Oral QID 03/31/20 21 Inactive hydralazine 25 mg tablet RxNorm: 535245 Take 1 Tablet(s) Oral QID 03/31/20 Inactive hydralazine 10 mg tablet RxNorm: 817004 Take 1 Tablet(s) Oral QID 03/03/20 021 Inactive cephalexin 500 mg tablet RxNorm: 270082 Take 1 Tablet(s) Oral QID 02/27/20 021 Inactive cephalexin 500 mg tablet RxNorm: 815661 Take 1 Tablet(s) Oral QID 02/27/20 021 Inactive lisinopril 40 mg tablet RxNorm: 609595 Take 1 Tablet(s) Oral QD 02/11/20 023 Inactive Eliquis 5 mg tablet RxNorm: 6119509 Take 1 Tablet(s) Oral BID 01/05/20 21 022 Inactive Eliquis 5 mg tablet RxNorm: 6505665 Take 2 Tablet(s) Oral QD 01/01/20 021 Inactive Lyrica 50 mg capsule RxNorm: 977174 Take 1 Capsule(s) Oral QAM every morning 12/24/19 021 Inactive Lyrica 100 mg capsule RxNorm: 654674 Take 1 Capsule(s) Oral QHS every night at bedtime 12/24/19 021 Inactive clotrimazole 1 % topical cream RxNorm: 752096 Apply to right foot and toes Topical BID 12/04/19 21 023 Inactive metoprolol succinate ER 200 mg tablet,extended release 24 hr RxNorm: 822794 Take 1 Tablet(s) Oral QD 12/04/19 023 Inactive ciprofloxacin 500 mg tablet RxNorm: 529660 Take 1 Tablet(s) Oral QD 11/30/19 021 Inactive DX ofloxacin otic drops Accu-Chek Guide test strips RxNorm: USE 1 TO CHECK GLUCOSE 4 TIMES DAILY AND NEEDED 11/15/19 21 023 Inactive Blood Glucose Test strips RxNorm: Use 1 Test Strip QID at PRN 11/05/19 21 023 Inactive E11.42 lisinopril 30 mg tablet RxNorm: 664039 Take 1 Tablet(s) Oral QD 10/30/19 21 021 Inactive lisinopril 20 mg tablet RxNorm: 671846 Take 1 Tablet(s) Oral QD 10/23/19 021 Inactive lisinopril 20 mg tablet RxNorm: 945708 Take 1 Tablet(s) Oral QD 10/23/19 21 Inactive lisinopril 10 mg tablet RxNorm: 908197 Take 1 Tablet(s) Oral QD 10/02/19 021 Inactive icosapent ethyl 1 gram capsule RxNorm: 6304161 Take 2 Capsule(s) (2 gm) Oral BID with meals 09/12/19 022 Inactive Okay to dispense one 2gm tab if you have that available. icosapent ethyl 1 gram capsule RxNorm: 3156527 Take 2 Capsule(s) Oral BID 09/12/19 021 Inactive Okay to dispense one 2gm tab if you have that available. amlodipine 10 mg tablet RxNorm: 704512 Take 1 Tablet(s) Oral QD 09/04/19 Inactive aspirin 81 mg tablet,delayed release RxNorm: 404918 Take 1 Tablet(s) Oral QD 09/04/19 021 Inactive Levemir FlexTouch U-100 Insulin 100 unit/mL (3 mL) subcutaneous pen RxNorm: 404419 Inject 150 Unit(s) Subcutaneous BID 09/04/19 022 Inactive venlafaxine ER 150 mg tablet,extended release 24 hr RxNorm: 417194 Take 1 Tablet(s) Oral QD 09/04/19 021 Inactive clotrimazole-betame thasone 1 %-0.05 % topical cream RxNorm: 340336 Apply to rash on red area on left abdomen/chest Topical BID 08/10/19 21 Inactive amlodipine 5 mg tablet RxNorm: 026855 Take 1 Tablet(s) Oral QD 07/31/19 21 Inactive cephalexin 500 mg tablet RxNorm: 496899 Take 1 Tablet(s) Oral BID BID - Twice Daily 07/31/19 21 021 Inactive Start 08/01/20 pantoprazole 40 mg tablet,delayed release RxNorm: 160763 Take 1 Tablet(s) Oral QAM every morning 07/08/19 022 Inactive senna 8.6 mg tablet RxNorm: 666184 Take 1 Tablet(s) Oral QD 07/08/19 022 Inactive pravastatin 80 mg tablet RxNorm: 138808 Take 1 Tablet(s) Oral QHS every night at bedtime 07/08/19 Inactive carbamazepine 200 mg tablet RxNorm: 690248 Take 1 Tablet(s) Oral BID 07/08/19 022 Inactive torsemide 20 mg tablet RxNorm: 041195 Take 1 Tablet(s) Oral QD 07/08/19 21 023 Inactive clopidogrel 75 mg tablet RxNorm: 153310 Take 1 Tablet(s) Oral QD 07/08/19 021 Inactive Blood Glucose Test strips RxNorm: Use 1 Test Strip QID at PRN 07/08/19 Inactive E11.42 Novolog Flexpen U-100 Insulin aspart 100 unit/mL (3 mL) subcutaneous RxNorm: 3467976 Administer per sliding scale Milliliter(s) Subcutaneous TID 151-200: 10 u; 201-250: 20 u; 251-300: 30 u; 301-350: 40 u; 351-400: 50 u. 07/08/19 022 Inactive lisinopril 5 mg tablet RxNorm: 301304 Take 1 Tablet(s) Oral QD 07/08/19 Inactive Novolog Flexpen U-100 Insulin aspart 100 unit/mL (3 mL) subcutaneous RxNorm: 6559327 Inject 85 Unit(s) Subcutaneous TID 07/08/19 022 Inactive clotrimazole 1 % topical cream RxNorm: 359723 Apply to bilateral groin areas Topical BID 07/08/19 Inactive metoprolol succinate ER 200 mg tablet,extended release 24 hr RxNorm: 440255 Take 1 Tablet(s) Oral QD 07/08/19 021 Inactive Vitamin D3 25 mcg (1,000 unit) tablet RxNorm: 115584 Take 1 Tablet(s) Oral QD 07/08/19 021 Inactive isosorbide dinitrate 30 mg tablet RxNorm: 906499 Take 1 Tablet(s) Oral QD 07/08/19 21 Inactive Levemir FlexTouch U-100 Insulin 100 unit/mL (3 mL) subcutaneous pen RxNorm: 102276 Inject 140 Unit(s) Subcutaneous BID 07/08/19 Inactive venlafaxine 75 mg tablet RxNorm: 365505 Take 1 Tablet(s) Oral QD 07/08/19 Inactive acetaminophen 500 mg tablet RxNorm: 374804 Take 1 Tablet(s) Oral TID as needed for headache 06/18/19 21 Inactive acetaminophen 500 mg tablet RxNorm: 230177 Take 1 Tablet(s) Oral TID as needed for headache 06/18/19 21 Inactive Lyrica 100 mg capsule RxNorm: 603969 Take 1 Capsule(s) Oral QHS every night at bedtime 06/11/19 21 021 Inactive Lyrica 50 mg capsule RxNorm: 835153 Take 1 Capsule(s) Oral QAM every morning 06/10/19 21 021 Inactive hydrocortisone 2.5 % topical cream RxNorm: 828499 Apply to bilateral groin creases Topical BID 05/15/20 20 021 Inactive clotrimazole 1 % topical cream RxNorm: 976225 Apply to bilateral groin areas Topical BID 05/15/20 20 021 Inactive Lyrica 50 mg capsule RxNorm: 770502 Take 1 Capsule(s) Oral QAM every morning 05/14/20 20 Inactive Lyrica 100 mg capsule RxNorm: 035410 Take 1 Capsule(s) Oral QHS every night [...] Inactive Nystop 100,000 unit/gram topical powder RxNorm: 337858 Apply to abd folds, under breasts and L side of groin Topical BID x 14 days, then BID PRN 04/08/20 20 Inactive dx: yeast dermatitis Lyrica 100 mg capsule RxNorm: 356623 Take 1 Capsule(s) Oral QHS every night at bedtime 03/13/20 20 Inactive Lyrica 50 mg capsule RxNorm: 866824 Take 1 Capsule(s) Oral QAM every morning 03/13/20 20 Inactive ketoconazole 2 % shampoo RxNorm: 270284 Apply Topical two times a week with showers 03/11/20 20 Inactive cholecalciferol (vitamin D3) 50 mcg (2,000 unit) tablet RxNorm: 681769 Take 1 Tablet(s) Oral QD 03/11/20 20 021 Inactive Zetia 10 mg tablet RxNorm: 026661 Take 1 Tablet(s) Oral QD 03/07/20 20 021 Inactive Zetia 10 mg tablet RxNorm: 358120 Take 1 Tablet(s) Oral QD 03/07/20 20 Inactive Lyrica 50 mg capsule RxNorm: 891583 Take 1 Capsule(s) Oral QAM every morning 02/15/20 20 Inactive Lyrica 100 mg capsule RxNorm: 960131 Take 1 Capsule(s) Oral QHS every night at bedtime 02/15/20 20 Inactive Lyrica 100 mg capsule RxNorm: 304106 Take 1 Capsule(s) Oral QHS every night at bedtime 02/15/20 20 10/01/2 020 Inactive Lyrica 50 mg capsule RxNorm: 264130 Take 1 Capsule(s) Oral QAM every morning 02/15/20 20 020 Inactive venlafaxine ER 75 mg capsule,extended release 24 hr RxNorm: 700130 Take 3 Capsule(s) Oral QD 06/12/19 22 Active polyethylene glycol 3350 17 gram/dose oral powder RxNorm: 079896 Take 17=1 capful Gram(s) Oral BID as needed mix with 4-8oz of liquid 06/12/19 22 Active Levemir FlexTouch U-100 Insulin 100 unit/mL (3 mL) subcutaneous pen RxNorm: 695392 Inject 80 Unit(s) Subcutaneous BID 07/14/19 23 023 Inactive loperamide 2 mg capsule RxNorm: 481022 Take 1 Capsule(s) Oral QID as needed 06/12/19 22 Active Novolog Flexpen U-100 Insulin aspart 100 unit/mL (3 mL) subcutaneous RxNorm: 5080918 Insert 30 Unit(s) Subcutaneous TID with meals [...] Address Codes Date () DOMICIL VISIT EST ANALI w/ modifier Diagnosis: Type 2 diabetes mellitus with diabetic polyneuropathy, with long-term current use of insulin[ICD10: E11.42] Diagnosis: Hyperlipidemia associated with type 2 diabetes mellitus[ICD10: E11.69] Diagnosis: Stage 2 chronic 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[ICD10: E11.22] Diagnosis: Hypertensive heart disease without heart failure[ICD10: I11.9] Andressa Marce [address] [id number] [place] [address] CPT-4: 87209 05/05/2022 Plan of Care Planned Activity Notes Codes Status Date Referral: [facility] WPtel: [phone], [address] [id number] [place] Referral Records Received 09/21/2022 Patient Education: Patient M edication Summary Completed 05/05/2022 Patient Education: Influenza Vaccine Completed 05/05/2022 Appointment: Rosalina Shirley WPtel: [phone] [id number] F/U 02/10/2022 Referral: [facility] WPtel: [phone] [id number] [place] Referral Completed 05/28/2021 Referral: General Cardiology Referral Complet ed 01/03/2021 Referral: General Psychologist Referral Close d Instructions Comment Date Leonid is a Male being seen living at [facility]. Initial BPS visit 01/2020. PMHx including DMII, CAD w/ 5 stents, Depression, Seizure Disorder and CKD stage 3. He moved into [facility] in 12/2019 but after a hospitalization 05/2021 he moved to the [facility] to have closer nursing attention. Sister Jyotsna involved in his care cell# [phone] Guardian: Don (rosalina met in person 09/01/21), now has Lexii (same group as don)Lab Schedule: Mar-/September* 10/06/2022 Diabetes blood sugars are elevated. Will increase night long acting and snack dosing Hypertension continuye to monitor BP and labs, encouraged follow up as scheduled . 05/05/2022
--- OUTSIDE RECORDS SUMMARY | 2022-05-19 19:00 | XMS_ITS | CCD ---
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 Name Role Phone Tapan Shirley PA-C Primary Care Provider Unavailabl e Tapan Shirley PA-C Chronic Care Management Unavaila ble Summary Purpose DataExchange Insurance Providers Payer name Policy type / Coverage type Covered libertarian ID Effective Begin Date Effective End Date Medicare [place] Medicare Part B [id number] Unknown Unknown Medicaid [place] Medicare Part B [id number] Unknown Unknown Family history Sister Brittany Suggs Diagnosis Age At Onset No Family Disease Entered N/A Runs in the family Diagnosis Age At Onset No Known Diseases N/A Sister Blanka Mcduffie Diagnosis Age At Onset No Family Disease Entered N/A Social History Social History Element Codes Description Effec tive Dates Marital status Unknown Single 10/07/2021 Living arrangements Unknown Senior Living 09/03/[address]: 8670901 Non-Smoker / No History of Smoking 09/02/[address]: 686223173 No Alcohol Consum ption 09/02/2020 Allergies, Adverse Reactions, Alerts Substance Reaction Codes Entered Date Inactivated Date Status LISINOPRIL RxNorm: 76805 02/12/2020 No Inactive Da te Active Metformin [...] 05/01/2022 Active Coronary artery disease invo lving [place] coronary artery of [place] heart, angina presence unspecified ICD-10: I25.10 ICD-9: [...] immunization ICD-10: Z23 ICD-9: V03.89 02/10/2022 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 ICD-10: Z79.4 02/10 [...] Fill Instructions Banophen 50 mg capsule RxNorm: 8635085 Take 1 Capsule(s) Oral Q6H every 6 hours as needed 05/19/19 No Stop Date Active Novolog Flexpen U-100 Insulin aspart 100 unit/mL (3 mL) subcutaneous RxNorm: 1066962 Inject 10 Unit(s) Subcutaneous QHS every night at bedtime with nighttime snack 04/08/20 022 Inactive Novolog Flexpen U-100 Insulin aspart 100 unit/mL (3 mL) subcutaneous RxNorm: 0840377 Inject 42 Unit(s) Subcutaneous TID in addition to sliding scale 04/08/20 022 Inactive d/c 36u albuterol sulfate HFA 90 mcg/actuation aerosol inhaler RxNorm: 4027130 Take 2 Puff(s) Inhalation Q4H every four hours as needed as needed for SOB, cough, or wheezing 04/07/20 030 Active Banophen 50 mg capsule RxNorm: 8572682 Take 1 Capsule(s) Oral Q6H every 6 hours as needed 04/06/20 023 Inactive diphenhydramine 50 mg tablet RxNorm: 3306400 Take 1 Tablet(s) Oral Q6H every 6 hours as needed 04/06/20 22 022 Inactive diphenhydramine 50 mg tablet RxNorm: 5510243 1 Tablet(s) Oral Q6H every 6 hours as needed 04/06/20 22 022 Inactive Abilify 15 mg tablet RxNorm: 576653 1/2 Tablet(s) Oral QD 03/10/20 023 Inactive Shingrix (PF) 50 mcg/0.5 mL intramuscular suspension, kit RxNorm: 5331342 Administer 1/2 Milliliter(s) Intramuscular QD one time shingrix step 2 ( step 1 given 11/04/21) WITH needle - Nursing please administer upon arrival and once administered 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, 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, 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, and lot# so we can update [facility] 02/18/20 22 022 Inactive dispense with needle Shingrix (PF) 50 mcg/0.5 mL intramuscular suspension, kit RxNorm: 8729099 Administer 1/2 Milliliter(s) Intramuscular QD one time shingrix step 2 ( step 1 given 11/04/21) WITH needle - Nursing please administer upon arrival and once administered 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, 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, 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, and lot# so we can update [facility] 02/18/20 22 022 Inactive dispense with needle acetaminophen 500 mg tablet RxNorm: 561091 Take 1 Tablet(s) Oral TID 01/08/20 22 023 Active d/c PRN order Lyrica 150 mg capsule RxNorm: 239645 Take 1 Capsule(s) Oral QHS every night at bedtime 01/08/20 22 023 Inactive d/c 100mg dose polyethylene glycol 3350 17 gram/dose oral powder RxNorm: 059069 Take 17=1 capful Gram(s) Oral QD mix with 4-8oz of liquid 01/08/20 22 023 Active take this in addition to BID prn order Lyrica 100 mg capsule RxNorm: 830456 Take 1 Capsule(s) Oral QAM every morning 01/08/20 22 022 Inactive d/c 50mg dose Abilify 5 mg tablet RxNorm: 067781 Take 1 Tablet(s) Oral QD take 1 tab po QD #30 refill 5 dx: MDD 12/12/19 22 022 Inactive Abilify 5 mg tablet RxNorm: 974631 Take 1 Tablet(s) Oral QD take 1 tab po QD #30 refill 5 dx: MDD 12/12/19 22 022 Inactive chlorthalidone 25 mg tablet RxNorm: 086465 Take 1 Tablet(s) Oral QAM every morning 12/10/19 22 023 Active Novolog Flexpen U-100 Insulin aspart 100 unit/mL (3 mL) subcutaneous RxNorm: 6887560 Inject 42 Unit(s) Subcutaneous TID in addition to sliding scale 12/10/19 22 022 Inactive d/c 36u pregabalin 50 mg capsule RxNorm: 114326 Take 1 Capsule(s) Oral QAM every morning 11/12/19 22 022 Inactive tetanus-diphtheria toxoids-Td 2 Lf unit-2 Lf unit/0.5 mL IM suspension RxNorm: 139 Take 0.5 Miscellaneous Intramuscular 11/12/19 22 022 Inactive need tdap - nursing to administer upon arrival pregabalin 50 mg capsule RxNorm: 388599 Take 1 Capsule(s) Oral QAM every morning 10/16/19 22 022 Inactive pregabalin 50 mg capsule RxNorm: 365426 Take 1 Capsule(s) Oral QAM every morning 10/16/19 22 022 Inactive pregabalin 50 mg capsule RxNorm: 693493 1 Capsule(s) Oral QAM every morning 10/15/19 22 022 Inactive Shingrix (PF) 50 mcg/0.5 mL intramuscular suspension, kit RxNorm: 5930097 Administer 1/2 Milliliter(s) Intramuscular one time Nursing please administer upon arrival and once administered 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 10/09/19 22 022 Inactive shingrix step 1 cholecalciferol (vitamin D3) 1,250 mcg (50,000 unit) capsule RxNorm: 509762 Take 1 Capsule(s) Oral QW once a [...] aspart 100 unit/mL (3 mL) subcutaneous RxNorm: 9928008 Inject 10 Unit(s) Subcutaneous QHS every night at bedtime with nighttime snack 10/08/19 22 Inactive Shingrix (PF) 50 mcg/0.5 mL intramuscular suspension, kit RxNorm: 3562156 ADMINISTER 2-DOSE SERIES PER CDC GUIDELINES 10/08/19 22 Active Shingrix (PF) 50 mcg/0.5 mL intramuscular suspension, kit RxNorm: 9427734 ADMINISTER 2-DOSE SERIES PER CDC GUIDELINES 10/08/19 22 022 Inactive Novolog Flexpen U-100 Insulin aspart 100 unit/mL (3 mL) subcutaneous RxNorm: 3590414 Inject 36 Unit(s) Subcutaneous TID in addition to sliding scale 10/08/19 22 Inactive Novofine Autocover 30 gauge x 1/3 needle RxNorm: Use 1 Miscellaneous UD as directed Use 1 needle as directed to administer insulin 5 times a day Dx:E11.42. 10/03/19 22 022 Inactive ok to substitute with any covered alternative pen needle benzoyl peroxide 10 % topical cleanser RxNorm: 258066 Apply 1 Application Topical QD apply to face, wash rinse and dry once daily (may change to QOD if drying) 08/19/19 22 022 Inactive (%covered by insurance) #60ml refill 11 dx: acne benzoyl peroxide 10 % topical cleanser RxNorm: 730824 Apply 1 Application Topical QD apply to face, wash rinse and dry once daily (may change to QOD if drying) 08/19/19 22 022 Inactive (%covered by insurance) #60ml refill 11 dx: acne benzoyl peroxide 10 % topical cleanser RxNorm: 743105 Apply 1 Application Topical QD apply to face, wash rinse and dry once daily (may change to QOD if drying) 08/19/19 22 022 Inactive (%covered by insurance) #60ml refill 11 dx: acne Lyrica 50 mg capsule RxNorm: 827912 Take 1 Capsule(s) Oral QAM every morning Take 1 capsule by mouth once daily 08/19/19 22 022 Inactive benzoyl peroxide 10 % topical cleanser RxNorm: 595468 Apply 1 Application Topical QD apply to face, wash rinse and dry once daily (may change to QOD if drying) 08/19/19 22 022 Inactive (%covered by insurance) #60ml refill 11 dx: acne Lyrica 100 mg capsule RxNorm: 184203 Take 1 Capsule(s) Oral QHS every night at bedtime Take 1 capsule by mouth once daily at bedtime 08/19/19 22 022 Inactive Lyrica 100 mg capsule RxNorm: 787008 Take 1 Capsule(s) Oral QHS every night at bedtime Take 1 capsule by mouth once daily at bedtime 08/16/19 22 022 Inactive Lyrica 50 mg capsule RxNorm: 323828 Take 1 Capsule(s) Oral QAM every morning Take 1 capsule by mouth once daily 08/16/19 22 022 Inactive Levemir FlexTouch U-100 Insulin 100 unit/mL (3 mL) subcutaneous pen RxNorm: 760333 Inject 86 Unit(s) Subcutaneous BID 08/05/19 22 022 Inactive d/c 83units BID Lyrica 100 mg capsule RxNorm: 021416 Take 1 Capsule(s) Oral QHS every night at bedtime Take 1 capsule by mouth once daily at bedtime 07/14/19 22 022 Inactive Lyrica 50 mg capsule RxNorm: 346678 Take 1 Capsule(s) Oral QAM every morning Take 1 capsule by mouth once daily 07/14/19 22 022 Inactive Levemir FlexTouch U-100 Insulin 100 unit/mL (3 mL) subcutaneous pen RxNorm: 921427 Inject 83 Unit(s) Subcutaneous BID 07/08/19 22 [...] as directed to administer insulin. Dx:E11. 06/05/19 22 022 Inactive ok to [...] times daily and as needed. Dx:E11. 06/05/19 22 022 Inactive ok to substitute with any covered alternative test strip Accu-Chek Guide test strips RxNorm: Use 1 Test Strip QID Use 1 test strip to monitor blood glucose 4 times daily and as needed. Dx:E11.42. 06/05/19 Inactive ok to substitute with any covered alternative test strip isosorbide mononitrate ER 30 mg tablet,extended release 24 hr RxNorm: 997836 Take 1 Tablet(s) Oral QD 05/05/20 No Stop Date Active hydralazine 50 mg tablet RxNorm: 996336 Take 1 Tablet(s) Oral QID 05/05/20 Inactive venlafaxine ER 225 mg tablet,extended release 24 hr RxNorm: 906370 Take 1 Tablet(s) Oral QD 05/05/20 Inactive venlafaxine ER 225 mg tablet,extended release 24 hr RxNorm: 729988 Take 1 Tablet(s) Oral QD 05/05/20 022 Inactive hydralazine 50 mg tablet RxNorm: 650096 Take 1 Tablet(s) Oral QID 05/05/20 Inactive aspirin 81 mg tablet,delayed release RxNorm: 272542 Take 1 Tablet(s) Oral QD 03/31/20 Inactive Zetia 10 mg tablet RxNorm: 841361 Take 1 Tablet(s) Oral QD 03/31/20 Inactive Vitamin D2 1,250 mcg (50,000 unit) capsule RxNorm: 9550608 Take 1 Capsule(s) Oral QW once a week x 12 weeks 03/31/20 Inactive Vitamin D2 1,250 mcg (50,000 unit) capsule RxNorm: 7721700 Take 1 Capsule(s) Oral QW once a week 03/31/20 Inactive Zetia 10 mg tablet RxNorm: 988023 Take 1 Tablet(s) Oral QD 03/31/20 Inactive hydralazine 25 mg tablet RxNorm: 509716 Take 1 Tablet(s) Oral QID 03/31/20 Inactive hydralazine 25 mg tablet RxNorm: 461085 Take 1 Tablet(s) Oral QID 03/31/20 021 Inactive hydralazine 10 mg tablet RxNorm: 966846 Take 1 Tablet(s) Oral QID 03/03/20 021 Inactive cephalexin 500 mg tablet RxNorm: 544322 Take 1 Tablet(s) Oral QID 02/27/20 021 Inactive cephalexin 500 mg tablet RxNorm: 756714 Take 1 Tablet(s) Oral QID 02/27/20 021 Inactive lisinopril 40 mg tablet RxNorm: 319930 Take 1 Tablet(s) Oral QD 02/11/20 023 Inactive Eliquis 5 mg tablet RxNorm: 9242859 Take 1 Tablet(s) Oral BID 01/05/20 022 Inactive Eliquis 5 mg tablet RxNorm: 5635637 Take 2 Tablet(s) Oral QD 01/01/20 21 021 Inactive Lyrica 50 mg capsule RxNorm: 905934 Take 1 Capsule(s) Oral QAM every morning 12/24/19 021 Inactive Lyrica 100 mg capsule RxNorm: 645528 Take 1 Capsule(s) Oral QHS every night at bedtime 12/24/19 021 Inactive clotrimazole 1 % topical cream RxNorm: 492071 Apply to right foot and toes Topical BID 12/04/19 21 023 Inactive metoprolol succinate ER 200 mg tablet,extended release 24 hr RxNorm: 353672 Take 1 Tablet(s) Oral QD 12/04/19 21 023 Inactive ciprofloxacin 500 mg tablet RxNorm: 967193 Take 1 Tablet(s) Oral QD 11/30/19 21 021 Inactive DX ofloxacin otic drops Accu-Chek Guide test strips RxNorm: USE 1 TO CHECK GLUCOSE 4 TIMES DAILY AND NEEDED 11/15/19 21 023 Inactive Blood Glucose Test strips RxNorm: Use 1 Test Strip QID at PRN 11/05/19 21 023 Inactive E11.42 lisinopril 30 mg tablet RxNorm: 736097 Take 1 Tablet(s) Oral QD 10/30/19 021 Inactive lisinopril 20 mg tablet RxNorm: 705825 Take 1 Tablet(s) Oral QD 10/23/19 21 Inactive lisinopril 20 mg tablet RxNorm: 641103 Take 1 Tablet(s) Oral QD 10/23/19 21 021 Inactive lisinopril 10 mg tablet RxNorm: 830847 Take 1 Tablet(s) Oral QD 10/02/19 21 021 Inactive icosapent ethyl 1 gram capsule RxNorm: 2947462 Take 2 Capsule(s) (2 gm) Oral BID with meals 09/12/19 022 Inactive Okay to dispense one 2gm tab if you have that available. icosapent ethyl 1 gram capsule RxNorm: 0902843 Take 2 Capsule(s) Oral BID 09/12/19 021 Inactive Okay to dispense one 2gm tab if you have that available. amlodipine 10 mg tablet RxNorm: 093510 Take 1 Tablet(s) Oral QD 09/04/19 022 Inactive aspirin 81 mg tablet,delayed release RxNorm: 571485 Take 1 Tablet(s) Oral QD 09/04/19 021 Inactive Levemir FlexTouch U-100 Insulin 100 unit/mL (3 mL) subcutaneous pen RxNorm: 926723 Inject 150 Unit(s) Subcutaneous BID 09/04/19 022 Inactive venlafaxine ER 150 mg tablet,extended release 24 hr RxNorm: 677360 Take 1 Tablet(s) Oral QD 09/04/19 21 021 Inactive clotrimazole-betame thasone 1 %-0.05 % topical cream RxNorm: 003093 Apply to rash on red area on left abdomen/chest Topical BID 08/10/19 21 Inactive amlodipine 5 mg tablet RxNorm: 724297 Take 1 Tablet(s) Oral QD 07/31/19 21 021 Inactive cephalexin 500 mg tablet RxNorm: 453659 Take 1 Tablet(s) Oral BID BID - Twice Daily 07/31/19 21 021 Inactive Start 08/01/20 pantoprazole 40 mg tablet,delayed release RxNorm: 066176 Take 1 Tablet(s) Oral QAM every morning 07/08/19 Inactive senna 8.6 mg tablet RxNorm: 969681 Take 1 Tablet(s) Oral QD 07/08/19 022 Inactive pravastatin 80 mg tablet RxNorm: 276202 Take 1 Tablet(s) Oral QHS every night at bedtime 07/08/19 Inactive carbamazepine 200 mg tablet RxNorm: 650703 Take 1 Tablet(s) Oral BID 07/08/19 022 Inactive torsemide 20 mg tablet RxNorm: 203244 Take 1 Tablet(s) Oral QD 07/08/19 023 Inactive clopidogrel 75 mg tablet RxNorm: 163735 Take 1 Tablet(s) Oral QD 07/08/19 021 Inactive Blood Glucose Test strips RxNorm: Use 1 Test Strip QID at PRN 07/08/19 Inactive E11.42 Novolog Flexpen U-100 Insulin aspart 100 unit/mL (3 mL) subcutaneous RxNorm: 6614073 Administer per sliding scale Milliliter(s) Subcutaneous TID 151-200: 10 u; 201-250: 20 u; 251-300: 30 u; 301-350: 40 u; 351-400: 50 u. 07/08/19 022 Inactive lisinopril 5 mg tablet RxNorm: 463017 Take 1 Tablet(s) Oral QD 07/08/19 021 Inactive Novolog Flexpen U-100 Insulin aspart 100 unit/mL (3 mL) subcutaneous RxNorm: 8226959 Inject 85 Unit(s) Subcutaneous TID 07/08/19 022 Inactive clotrimazole 1 % topical cream RxNorm: 215390 Apply to bilateral groin areas Topical BID 07/08/19 022 Inactive metoprolol succinate ER 200 mg tablet,extended release 24 hr RxNorm: 170213 Take 1 Tablet(s) Oral QD 07/08/19 021 Inactive Vitamin D3 25 mcg (1,000 unit) tablet RxNorm: 596336 Take 1 Tablet(s) Oral QD 07/08/19 Inactive isosorbide dinitrate 30 mg tablet RxNorm: 196570 Take 1 Tablet(s) Oral QD 07/08/19 Inactive Levemir FlexTouch U-100 Insulin 100 unit/mL (3 mL) subcutaneous pen RxNorm: 405001 Inject 140 Unit(s) Subcutaneous BID 07/08/19 Inactive venlafaxine 75 mg tablet RxNorm: 767529 Take 1 Tablet(s) Oral QD 07/08/19 Inactive acetaminophen 500 mg tablet RxNorm: 785332 Take 1 Tablet(s) Oral TID as needed for headache 06/18/19 Inactive acetaminophen 500 mg tablet RxNorm: 849528 Take 1 Tablet(s) Oral TID as needed for headache 06/18/19 Inactive Lyrica 100 mg capsule RxNorm: 281119 Take 1 Capsule(s) Oral QHS every night at bedtime 06/11/19 021 Inactive Lyrica 50 mg capsule RxNorm: 584056 Take 1 Capsule(s) Oral QAM every morning 06/10/19 Inactive hydrocortisone 2.5 % topical cream RxNorm: 719572 Apply to bilateral groin creases Topical BID 05/15/20 20 021 Inactive clotrimazole 1 % topical cream RxNorm: 692643 Apply to bilateral groin areas Topical BID 05/15/20 20 021 Inactive Lyrica 50 mg capsule RxNorm: 695855 Take 1 Capsule(s) Oral QAM every morning 05/14/20 20 Inactive Lyrica 100 mg capsule RxNorm: 055086 Take 1 Capsule(s) Oral QHS every night [...] Inactive Nystop 100,000 unit/gram topical powder RxNorm: 124683 Apply to abd folds, under breasts and L side of groin Topical BID x 14 days, then BID PRN 04/08/20 20 021 Inactive dx: yeast dermatitis Lyrica 100 mg capsule RxNorm: 035686 Take 1 Capsule(s) Oral QHS every night at bedtime 03/13/20 20 Inactive Lyrica 50 mg capsule RxNorm: 684347 Take 1 Capsule(s) Oral QAM every morning 03/13/20 20 Inactive ketoconazole 2 % shampoo RxNorm: 094401 Apply Topical two times a week with showers 03/11/20 20 Inactive cholecalciferol (vitamin D3) 50 mcg (2,000 unit) tablet RxNorm: 642554 Take 1 Tablet(s) Oral QD 03/11/20 20 021 Inactive Zetia 10 mg tablet RxNorm: 096898 Take 1 Tablet(s) Oral QD 03/07/20 20 021 Inactive Zetia 10 mg tablet RxNorm: 303316 Take 1 Tablet(s) Oral QD 03/07/20 20 Inactive Lyrica 50 mg capsule RxNorm: 001045 Take 1 Capsule(s) Oral QAM every morning 02/15/20 20 Inactive Lyrica 100 mg capsule RxNorm: 371764 Take 1 Capsule(s) Oral QHS every night at bedtime 02/15/20 20 Inactive Lyrica 100 mg capsule RxNorm: 206428 Take 1 Capsule(s) Oral QHS every night at bedtime 02/15/20 20 Inactive Lyrica 50 mg capsule RxNorm: 492033 Take 1 Capsule(s) Oral QAM every morning 02/15/20 20 020 Inactive venlafaxine ER 75 mg capsule,extended release 24 hr RxNorm: 626428 Take 3 Capsule(s) Oral QD 06/12/19 Active polyethylene glycol 3350 17 gram/dose oral powder RxNorm: 787028 Take 17=1 capful Gram(s) Oral BID as needed mix with 4-8oz of liquid 06/12/19 Active Levemir FlexTouch U-100 Insulin 100 unit/mL (3 mL) subcutaneous pen RxNorm: 581079 Inject 80 Unit(s) Subcutaneous BID 07/14/19 23 023 Inactive loperamide 2 mg capsule RxNorm: 368911 Take 1 Capsule(s) Oral QID as needed 06/12/19 Active Novolog Flexpen U-100 Insulin aspart 100 unit/mL (3 mL) subcutaneous RxNorm: 0076652 Insert 30 Unit(s) Subcutaneous TID with meals [...] Status Date Referral: [facility] WPtel: [phone], [address] [id number] [place] Referral Records Received 09/21/2022 Referral: [facility] WPtel: [id number] [id number] [place] Referral Completed 05/28/2021 Referral: General Cardiology Referral Complet ed 01/03/2021 Referral: General Psychologist Referral Close d Instructions Comment Date Leonid is a Male being seen living at [facility]. Initial [facility] visit 01/2020. PMHx including DMII, CAD w/ 5 stents, Depression, Seizure Disorder and CKD stage 3. He moved into [facility] in 12/2019 but after a hospitalization 05/2021 he moved to the [facility] to have closer nursing attention. Sister Jyotsna involved in his care cell# [phone] Guardian: Don (tapan met in person 09/01/21), now has Lexii (same group as don)Lab Schedule: * 10/06/2022
--- OUTSIDE RECORDS SUMMARY | 2022-06-02 19:00 | XMS_ITS | CCD ---
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 [place] Worker Name Role Phone Tapan Shirley PA-C Primary Care Provider Unavailabl e Tapan Shirley PA-C Chronic Care Management Unavaila ble Summary Purpose DataExchange Insurance Providers Payer name Policy type / Coverage type Covered green party ID Effective Begin Date Effective End Date [place] Medicare Part B [id number] Unknown Unknown [place] Medicare Part B [id number] Unknown Unknown Family history Sister Brittany Suggs Diagnosis Age At Onset No Family Disease Entered N/A Runs in the family Diagnosis Age At Onset No Known Diseases N/A Sister Blanka Mcduffie Diagnosis Age At Onset No Family Disease Entered N/A Social History Social History Element Codes Description Effec tive Dates Marital status Unknown Single 10/07/2021 Living arrangements Unknown [facility] 09/03/[address]: 0677363 Non-Smoker / No History of Smoking 09/02/[address]: 822605984 No Alcohol Consum ption 09/02/2020 Allergies, Adverse Reactions, Alerts Substance Reaction Codes Entered Date Inactivated Date Status LISINOPRIL RxNorm: 97553 02/12/2020 No Inactive Da te Active Metformin [...] 05/01/2022 Active Coronary artery disease invo lving ione coronary artery of ione heart, angina presence unspecified ICD-10: I25.10 ICD-9: [...] immunization ICD-10: Z23 ICD-9: V03.89 02/10/2022 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 ICD-10: Z79.4 02/10 [...] Fill Instructions pregabalin 100 mg capsule RxNorm: 188216 1 Capsule(s) Oral QAM every morning 06/02/19 23 023 Inactive Banophen 50 mg capsule RxNorm: 7348034 Take 1 Capsule(s) Oral Q6H every 6 hours as needed 05/19/19 No Stop Date Active Novolog Flexpen U-100 Insulin aspart 100 unit/mL (3 mL) subcutaneous RxNorm: 5515370 Inject 10 Unit(s) Subcutaneous QHS every night at bedtime with nighttime snack 04/08/20 22 022 Inactive Novolog Flexpen U-100 Insulin aspart 100 unit/mL (3 mL) subcutaneous RxNorm: 6814403 Inject 42 Unit(s) Subcutaneous TID in addition to sliding scale 04/08/20 22 022 Inactive d/c 36u albuterol sulfate HFA 90 mcg/actuation aerosol inhaler RxNorm: 4487974 Take 2 Puff(s) Inhalation Q4H every four hours as needed as needed for SOB, cough, or wheezing 04/07/20 22 030 Active Banophen 50 mg capsule RxNorm: 5823298 Take 1 Capsule(s) Oral Q6H every 6 hours as needed 04/06/20 023 Inactive diphenhydramine 50 mg tablet RxNorm: 6036905 Take 1 Tablet(s) Oral Q6H every 6 hours as needed 04/06/20 22 022 Inactive diphenhydramine 50 mg tablet RxNorm: 9345506 1 Tablet(s) Oral Q6H every 6 hours as needed 04/06/20 022 Inactive Abilify 15 mg tablet RxNorm: 746800 1/2 Tablet(s) Oral QD 03/10/20 023 Inactive Shingrix (PF) 50 mcg/0.5 mL intramuscular suspension, kit RxNorm: 1423607 Administer 1/2 Milliliter(s) Intramuscular QD one time shingrix step 2 ( step 1 given 11/04/21) WITH needle - Nursing please administer upon arrival and once administered 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, vegetable inspector, 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, and lot# so we can update [facility] 02/18/20 22 022 Inactive dispense with needle Shingrix (PF) 50 mcg/0.5 mL intramuscular suspension, kit RxNorm: 4068133 Administer 1/2 Milliliter(s) Intramuscular QD one time shingrix step 2 ( step 1 given 11/04/21) WITH needle - Nursing please administer upon arrival and once administered 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, vegetable inspector, 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, and lot# so we can update [facility] 02/18/20 22 022 Inactive dispense with needle acetaminophen 500 mg tablet RxNorm: 389817 Take 1 Tablet(s) Oral TID 01/08/20 22 023 Active d/c PRN order Lyrica 150 mg capsule RxNorm: 880483 Take 1 Capsule(s) Oral QHS every night at bedtime 01/08/20 22 023 Inactive d/c 100mg dose polyethylene glycol 3350 17 gram/dose oral powder RxNorm: 116226 Take 17=1 capful Gram(s) Oral QD mix with 4-8oz of liquid 01/08/20 22 023 Active take this in addition to BID prn order Lyrica 100 mg capsule RxNorm: 879989 Take 1 Capsule(s) Oral QAM every morning 01/08/20 22 022 Inactive d/c 50mg dose Abilify 5 mg tablet RxNorm: 272398 Take 1 Tablet(s) Oral QD take 1 tab po QD #30 refill 5 dx: MDD 12/12/19 22 022 Inactive Abilify 5 mg tablet RxNorm: 904353 Take 1 Tablet(s) Oral QD take 1 tab po QD #30 refill 5 dx: MDD 12/12/19 22 022 Inactive chlorthalidone 25 mg tablet RxNorm: 567057 Take 1 Tablet(s) Oral QAM every morning 12/10/19 22 023 Active Novolog Flexpen U-100 Insulin aspart 100 unit/mL (3 mL) subcutaneous RxNorm: 5904715 Inject 42 Unit(s) Subcutaneous TID in addition to sliding scale 12/10/19 22 022 Inactive d/c 36u pregabalin 50 mg capsule RxNorm: 157477 Take 1 Capsule(s) Oral QAM every morning 11/12/19 22 022 Inactive tetanus-diphtheria toxoids-Td 2 Lf unit-2 Lf unit/0.5 mL IM suspension RxNorm: 139 Take 0.5 Miscellaneous Intramuscular 11/12/19 22 022 Inactive need tdap - nursing to administer upon arrival pregabalin 50 mg capsule RxNorm: 825565 Take 1 Capsule(s) Oral QAM every morning 10/16/19 022 Inactive pregabalin 50 mg capsule RxNorm: 360190 Take 1 Capsule(s) Oral QAM every morning 10/16/19 22 022 Inactive pregabalin 50 mg capsule RxNorm: 150088 1 Capsule(s) Oral QAM every morning 10/15/19 22 022 Inactive Shingrix (PF) 50 mcg/0.5 mL intramuscular suspension, kit RxNorm: 8898213 Administer 1/2 Milliliter(s) Intramuscular one time Nursing please administer upon arrival and once administered 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, vegetable inspector, 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 10/09/19 22 022 Inactive shingrix step 1 Shingrix (PF) 50 mcg/0.5 mL intramuscular suspension, kit RxNorm: 9836255 Administer 1/2 Milliliter(s) Intramuscular one time Nursing please administer upon arrival and once administered 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, vegetable inspector, 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 10/09/19 22 022 Inactive shingrix step 1 cholecalciferol (vitamin D3) 1,250 mcg (50,000 unit) capsule RxNorm: 152835 Take 1 Capsule(s) Oral QW once a [...] aspart 100 unit/mL (3 mL) subcutaneous RxNorm: 2023535 Inject 10 Unit(s) Subcutaneous QHS every night at bedtime with nighttime snack 10/08/19 22 Inactive Shingrix (PF) 50 mcg/0.5 mL intramuscular suspension, kit RxNorm: 3800902 ADMINISTER 2-DOSE SERIES PER CDC GUIDELINES 10/08/19 22 Active Shingrix (PF) 50 mcg/0.5 mL intramuscular suspension, kit RxNorm: 7152798 ADMINISTER 2-DOSE SERIES PER CDC GUIDELINES 10/08/19 22 Inactive Novolog Flexpen U-100 Insulin aspart 100 unit/mL (3 mL) subcutaneous RxNorm: 6048453 Inject 36 Unit(s) Subcutaneous TID in addition to sliding scale 10/08/19 22 07/25/2 022 Inactive Novofine Autocover 30 gauge x 1/3 needle RxNorm: Use 1 Miscellaneous UD as directed Use 1 needle as directed to administer insulin 5 times a day Dx:E11.42. 10/03/19 Inactive ok to substitute with any covered alternative pen needle benzoyl peroxide 10 % topical cleanser RxNorm: 986269 Apply 1 Application Topical QD apply to face, wash rinse and dry once daily (may change to QOD if drying) 08/19/19 022 Inactive (%covered by insurance) #60ml refill 11 dx: acne benzoyl peroxide 10 % topical cleanser RxNorm: 823599 Apply 1 Application Topical QD apply to face, wash rinse and dry once daily (may change to QOD if drying) 08/19/19 022 Inactive (%covered by insurance) #60ml refill 11 dx: acne benzoyl peroxide 10 % topical cleanser RxNorm: 992847 Apply 1 Application Topical QD apply to face, wash rinse and dry once daily (may change to QOD if drying) 08/19/19 022 Inactive (%covered by insurance) #60ml refill 11 dx: acne Lyrica 50 mg capsule RxNorm: 819433 Take 1 Capsule(s) Oral QAM every morning Take 1 capsule by mouth once daily 08/19/19 022 Inactive benzoyl peroxide 10 % topical cleanser RxNorm: 488464 Apply 1 Application Topical QD apply to face, wash rinse and dry once daily (may change to QOD if drying) 08/19/19 022 Inactive (%covered by insurance) #60ml refill 11 dx: acne Lyrica 100 mg capsule RxNorm: 685947 Take 1 Capsule(s) Oral QHS every night at bedtime Take 1 capsule by mouth once daily at bedtime 08/19/19 Inactive Lyrica 100 mg capsule RxNorm: 307218 Take 1 Capsule(s) Oral QHS every night at bedtime Take 1 capsule by mouth once daily at bedtime 08/16/19 22 Inactive Lyrica 50 mg capsule RxNorm: 304938 Take 1 Capsule(s) Oral QAM every morning Take 1 capsule by mouth once daily 08/16/19 22 022 Inactive Levemir FlexTouch U-100 Insulin 100 unit/mL (3 mL) subcutaneous pen RxNorm: 330819 Inject 86 Unit(s) Subcutaneous BID 08/05/19 22 022 Inactive d/c 83units BID Lyrica 100 mg capsule RxNorm: 732010 Take 1 Capsule(s) Oral QHS every night at bedtime Take 1 capsule by mouth once daily at bedtime 07/14/19 22 022 Inactive Lyrica 50 mg capsule RxNorm: 769956 Take 1 Capsule(s) Oral QAM every morning Take 1 capsule by mouth once daily 07/14/19 22 022 Inactive Levemir FlexTouch U-100 Insulin 100 unit/mL (3 mL) subcutaneous pen RxNorm: 664256 Inject 83 Unit(s) Subcutaneous BID 07/08/19 22 022 Inactive d/c 80units BID Accu-Chek Guide Glucose Meter RxNorm: Use 1 Miscellaneous UD as directed Use glucose meter to monitor blood glucose 4 times daily and as needed. Dx:E1142 06/05/19 No Stop Date Active ok to [...] to administer insulin 5 times a day Dx:E1142. 06/05/19 22 022 Inactive ok to [...] 30 mg tablet,extended release 24 hr RxNorm: 322129 Take 1 Tablet(s) Oral QD 05/05/20 21 No Stop Date Active hydralazine 50 mg tablet RxNorm: 231404 Take 1 Tablet(s) Oral QID 05/05/20 21 Inactive venlafaxine ER 225 mg tablet,extended release 24 hr RxNorm: 997467 Take 1 Tablet(s) Oral QD 05/05/20 Inactive venlafaxine ER 225 mg tablet,extended release 24 hr RxNorm: 242187 Take 1 Tablet(s) Oral QD 05/05/20 21 022 Inactive hydralazine 50 mg tablet RxNorm: 011681 Take 1 Tablet(s) Oral QID 05/05/20 21 Inactive aspirin 81 mg tablet,delayed release RxNorm: 012740 Take 1 Tablet(s) Oral QD 03/31/20 Inactive Zetia 10 mg tablet RxNorm: 692794 Take 1 Tablet(s) Oral QD 03/31/20 Inactive Vitamin D2 1,250 mcg (50,000 unit) capsule RxNorm: 3611347 Take 1 Capsule(s) Oral QW once a week x 12 weeks 03/31/20 Inactive Vitamin D2 1,250 mcg (50,000 unit) capsule RxNorm: 9852526 Take 1 Capsule(s) Oral QW once a week 03/31/20 Inactive Zetia 10 mg tablet RxNorm: 922291 Take 1 Tablet(s) Oral QD 03/31/20 Inactive hydralazine 25 mg tablet RxNorm: 455620 Take 1 Tablet(s) Oral QID 03/31/20 021 Inactive hydralazine 25 mg tablet RxNorm: 786082 Take 1 Tablet(s) Oral QID 03/31/20 021 Inactive hydralazine 10 mg tablet RxNorm: 147238 Take 1 Tablet(s) Oral QID 03/03/20 021 Inactive cephalexin 500 mg tablet RxNorm: 781905 Take 1 Tablet(s) Oral QID 02/27/20 021 Inactive cephalexin 500 mg tablet RxNorm: 537239 Take 1 Tablet(s) Oral QID 02/27/20 021 Inactive lisinopril 40 mg tablet RxNorm: 257760 Take 1 Tablet(s) Oral QD 02/11/20 023 Inactive Eliquis 5 mg tablet RxNorm: 6712147 Take 1 Tablet(s) Oral BID 01/05/20 022 Inactive Eliquis 5 mg tablet RxNorm: 0827545 Take 2 Tablet(s) Oral QD 01/01/20 021 Inactive Lyrica 50 mg capsule RxNorm: 735377 Take 1 Capsule(s) Oral QAM every morning 12/24/19 021 Inactive Lyrica 100 mg capsule RxNorm: 863890 Take 1 Capsule(s) Oral QHS every night at bedtime 12/24/19 021 Inactive clotrimazole 1 % topical cream RxNorm: 507812 Apply to right foot and toes Topical BID 12/04/19 21 023 Inactive metoprolol succinate ER 200 mg tablet,extended release 24 hr RxNorm: 853075 Take 1 Tablet(s) Oral QD 12/04/19 023 Inactive ciprofloxacin 500 mg tablet RxNorm: 098859 Take 1 Tablet(s) Oral QD 11/30/19 21 021 Inactive DX ofloxacin otic drops Accu-Chek Guide test strips RxNorm: USE 1 TO CHECK GLUCOSE 4 TIMES DAILY AND NEEDED 11/15/19 21 023 Inactive Blood Glucose Test strips RxNorm: Use 1 Test Strip QID at PRN 11/05/19 21 023 Inactive E11.42 lisinopril 30 mg tablet RxNorm: 926525 Take 1 Tablet(s) Oral QD 10/30/19 021 Inactive lisinopril 20 mg tablet RxNorm: 505485 Take 1 Tablet(s) Oral QD 10/23/19 021 Inactive lisinopril 20 mg tablet RxNorm: 889998 Take 1 Tablet(s) Oral QD 10/23/19 21 021 Inactive lisinopril 10 mg tablet RxNorm: 992929 Take 1 Tablet(s) Oral QD 10/02/19 021 Inactive icosapent ethyl 1 gram capsule RxNorm: 3855014 Take 2 Capsule(s) (2 gm) Oral BID with meals 09/12/19 022 Inactive Okay to dispense one 2gm tab if you have that available. icosapent ethyl 1 gram capsule RxNorm: 8411534 Take 2 Capsule(s) Oral BID 09/12/19 021 Inactive Okay to dispense one 2gm tab if you have that available. amlodipine 10 mg tablet RxNorm: 187937 Take 1 Tablet(s) Oral QD 09/04/19 022 Inactive aspirin 81 mg tablet,delayed release RxNorm: 520940 Take 1 Tablet(s) Oral QD 09/04/19 021 Inactive Levemir FlexTouch U-100 Insulin 100 unit/mL (3 mL) subcutaneous pen RxNorm: 110058 Inject 150 Unit(s) Subcutaneous BID 09/04/19 21 022 Inactive venlafaxine ER 150 mg tablet,extended release 24 hr RxNorm: 560838 Take 1 Tablet(s) Oral QD 09/04/19 21 021 Inactive clotrimazole-betame thasone 1 %-0.05 % topical cream RxNorm: 261518 Apply to rash on red area on left abdomen/chest Topical BID 08/10/19 21 021 Inactive amlodipine 5 mg tablet RxNorm: 252317 Take 1 Tablet(s) Oral QD 07/31/19 21 04/19/2 021 Inactive cephalexin 500 mg tablet RxNorm: 092240 Take 1 Tablet(s) Oral BID BID - Twice Daily 07/31/19 21 Inactive Start 08/01/20 pantoprazole 40 mg tablet,delayed release RxNorm: 563401 Take 1 Tablet(s) Oral QAM every morning 07/08/19 022 Inactive senna 8.6 mg tablet RxNorm: 867057 Take 1 Tablet(s) Oral QD 07/08/19 022 Inactive pravastatin 80 mg tablet RxNorm: 787858 Take 1 Tablet(s) Oral QHS every night at bedtime 07/08/19 Inactive carbamazepine 200 mg tablet RxNorm: 736545 Take 1 Tablet(s) Oral BID 07/08/19 Inactive torsemide 20 mg tablet RxNorm: 616481 Take 1 Tablet(s) Oral QD 07/08/19 023 Inactive clopidogrel 75 mg tablet RxNorm: 806633 Take 1 Tablet(s) Oral QD 07/08/19 021 Inactive Blood Glucose Test strips RxNorm: Use 1 Test Strip QID at PRN 07/08/19 Inactive E11.42 Novolog Flexpen U-100 Insulin aspart 100 unit/mL (3 mL) subcutaneous RxNorm: 3450759 Administer per sliding scale Milliliter(s) Subcutaneous TID 151-200: 10 u; 201-250: 20 u; 251-300: 30 u; 301-350: 40 u; 351-400: 50 u. 07/08/19 022 Inactive lisinopril 5 mg tablet RxNorm: 202310 Take 1 Tablet(s) Oral QD 07/08/19 021 Inactive Novolog Flexpen U-100 Insulin aspart 100 unit/mL (3 mL) subcutaneous RxNorm: 5423879 Inject 85 Unit(s) Subcutaneous TID 07/08/19 Inactive clotrimazole 1 % topical cream RxNorm: 551886 Apply to bilateral groin areas Topical BID 07/08/19 21 022 Inactive metoprolol succinate ER 200 mg tablet,extended release 24 hr RxNorm: 207554 Take 1 Tablet(s) Oral QD 07/08/19 Inactive Vitamin D3 25 mcg (1,000 unit) tablet RxNorm: 915922 Take 1 Tablet(s) Oral QD 07/08/19 Inactive isosorbide dinitrate 30 mg tablet RxNorm: 523980 Take 1 Tablet(s) Oral QD 07/08/19 Inactive Levemir FlexTouch U-100 Insulin 100 unit/mL (3 mL) subcutaneous pen RxNorm: 630853 Inject 140 Unit(s) Subcutaneous BID 07/08/19 021 Inactive venlafaxine 75 mg tablet RxNorm: 947882 Take 1 Tablet(s) Oral QD 07/08/19 Inactive acetaminophen 500 mg tablet RxNorm: 966220 Take 1 Tablet(s) Oral TID as needed for headache 06/18/19 Inactive acetaminophen 500 mg tablet RxNorm: 994780 Take 1 Tablet(s) Oral TID as needed for headache 06/18/19 Inactive Lyrica 100 mg capsule RxNorm: 506697 Take 1 Capsule(s) Oral QHS every night at bedtime 06/11/19 Inactive Lyrica 50 mg capsule RxNorm: 685949 Take 1 Capsule(s) Oral QAM every morning 06/10/19 21 021 Inactive hydrocortisone 2.5 % topical cream RxNorm: 592274 Apply to bilateral groin creases Topical BID 05/15/20 20 021 Inactive clotrimazole 1 % topical cream RxNorm: 235280 Apply to bilateral groin areas Topical BID 05/15/20 20 021 Inactive Lyrica 50 mg capsule RxNorm: 258973 Take 1 Capsule(s) Oral QAM every morning 05/14/20 20 Inactive Lyrica 100 mg capsule RxNorm: 169997 Take 1 Capsule(s) Oral QHS every night [...] Inactive Nystop 100,000 unit/gram topical powder RxNorm: 296136 Apply to abd folds, under breasts and L side of groin Topical BID x 14 days, then BID PRN 04/08/20 20 021 Inactive dx: yeast dermatitis Lyrica 100 mg capsule RxNorm: 407952 Take 1 Capsule(s) Oral QHS every night at bedtime 03/13/20 20 Inactive Lyrica 50 mg capsule RxNorm: 884218 Take 1 Capsule(s) Oral QAM every morning 03/13/20 20 Inactive ketoconazole 2 % shampoo RxNorm: 693585 Apply Topical two times a week with showers 03/11/20 20 Inactive cholecalciferol (vitamin D3) 50 mcg (2,000 unit) tablet RxNorm: 996463 Take 1 Tablet(s) Oral QD 03/11/20 20 021 Inactive Zetia 10 mg tablet RxNorm: 103902 Take 1 Tablet(s) Oral QD 03/07/20 20 021 Inactive Zetia 10 mg tablet RxNorm: 110347 Take 1 Tablet(s) Oral QD 03/07/20 20 Inactive Lyrica 50 mg capsule RxNorm: 488149 Take 1 Capsule(s) Oral QAM every morning 02/15/20 20 Inactive Lyrica 100 mg capsule RxNorm: 307757 Take 1 Capsule(s) Oral QHS every night at bedtime 02/15/20 20 Inactive Lyrica 100 mg capsule RxNorm: 659977 Take 1 Capsule(s) Oral QHS every night at bedtime 02/15/20 20 Inactive Lyrica 50 mg capsule RxNorm: 908872 Take 1 Capsule(s) Oral QAM every morning 02/15/20 20 Inactive venlafaxine ER 75 mg capsule,extended release 24 hr RxNorm: 969164 Take 3 Capsule(s) Oral QD 06/12/19 22 Active polyethylene glycol 3350 17 gram/dose oral powder RxNorm: 124792 Take 17=1 capful Gram(s) Oral BID as needed mix with 4-8oz of liquid 06/12/19 22 Active Levemir FlexTouch U-100 Insulin 100 unit/mL (3 mL) subcutaneous pen RxNorm: 065816 Inject 80 Unit(s) Subcutaneous BID 07/14/19 23 023 Inactive loperamide 2 mg capsule RxNorm: 595775 Take 1 Capsule(s) Oral QID as needed 06/12/19 22 Active Novolog Flexpen U-100 Insulin aspart 100 unit/mL (3 mL) subcutaneous RxNorm: 1872481 Insert 30 Unit(s) Subcutaneous TID with meals [...] Codes Status Date Referral: [facility] WPtel: [phone], [address] [id number] [place] Referral Records Received 09/21/2022 Referral: [facility] WPtel: [phone] [id number] [place] Referral Completed 05/28/2021 Referral: General Cardiology Referral Complet ed 01/03/2021 Referral: General Psychologist Referral Close d Instructions Comment Date Leonid is a Male being seen living at [facility]. Initial [facility] visit 01/2020. PMHx including DMII, CAD w/ 5 stents, Depression, Seizure Disorder and CKD stage 3. He moved into [facility] ([place], [place]) in 12/2019 but after a hospitalization 05/2021 he moved to the [facility] to have closer nursing attention. Sister Jyotsna involved in his care cell# [phone] Guardian: Don (tapan met in person 09/01/21), now has Lexii (same group as don)Lab Schedule: * 10/06/2022
--- OUTSIDE RECORDS SUMMARY | 2022-06-17 19:00 | XMS_ITS | CCD ---
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 Watch Assembly Instructor Name Role Phone Tapan Shirley PA-C Primary Care Provider Unavailabl e Tapan Shirley PA-C Chronic Care Management Unavaila ble Summary Purpose DataExchange Insurance Providers Payer name Policy type / Coverage type Covered libertarian ID Effective Begin Date Effective End Date Medicare [place] Medicare Part B [id number] Unknown Unknown Medicaid [place] Medicare Part B [id number] Unknown Unknown Family history Sister Brittany Suggs [...] Correction 09/03/[address]: 4859321 Non-Smoker / No History of Smoking 09/02/[address]: 526582811 No Alcohol Consum ption 09/02/2020 Allergies, Adverse Reactions, Alerts Substance Reaction Codes Entered Date Inactivated Date Status LISINOPRIL RxNorm: 95525 02/12/2020 No Inactive Da te Active Metformin HCl Unknown 02/12/2020 No Inactive Cristiano e Active Problems Condition Codes Effective Dates Condition St atus Candidiasis, intertrigo ICD-10: B37.2 ICD-9: 112.3 06/09/2022 Active Hyperlipidemia associated wi th type 2 diabetes mellitus ICD-10: E11.69 ICD-9: 250.80 06/09/2022 Active Onychogryposis ICD-10: L60.2 ICD-9: 703.8 06/09/2022 Active Stage 2 chronic kidney disea se due to type 2 diabetes mellitus ICD-10: E11.22 ICD-9: 250.40 06/09/2022 Active Type 2 diabetes mellitus wit h diabetic polyneuropathy, with long-term current use of insulin ICD-10: E11.42 ICD-9: 250.60 06/09/2022 Active Hypertensive heart disease w ithout heart failure ICD-10: I11.9 ICD-9: 402.90 05/05/2022 Active High risk medication use ICD-10: Z79.899 ICD-9: V58.69 05/01/2022 Active Major depression, recurrent ICD-10: F33. 9 ICD-9: 296.30 05/01/2022 Active Vitamin D deficiency ICD-10: E55.9 ICD-9: 268.9 05/01/2022 Active Coronary artery disease invo [place]ving [place] coronary artery of [place] heart, angina presence unspecified ICD-10: I25.10 ICD-9: [...] state ICD-10: D68.59 ICD-9: 289.81 02/10/2022 Active Paraparesis of both lower limbs ICD-10: G82.20 ICD-9: 344.1 02/10/2022 Active PVD (peripheral vascular disease) ICD-10 : I73.9 ICD-9: 443.9 02/10/2022 Active Depression ICD-10: F32.9 ICD-9: 311 02/10/2022 Resolved DVT (deep venous thrombosis) ICD-10: I82 .409 ICD-9: 453.40 02/10/2022 Resolved Encounter for immunization ICD-10: Z23 ICD-9: V03.89 02/10/2022 Resolved prison (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 insulin ICD-10: Z79.4 02/10 [...] ICD-10: N 18.2 ICD-9: 585.2 12/09/2021 Active Gout due to renal impairment ICD-10: [...] Fill Instructions Diflucan 150 mg tablet RxNorm: 751455 Take 1 Tablet(s) Oral QD repeat on day 3 and 6 06/30/19 23 023 Inactive Lyrica 150 mg capsule RxNorm: 188856 Take 1 Capsule(s) Oral QHS every night at bedtime 06/18/19 23 023 Inactive d/c 100mg dose aripiprazole 15 mg tablet RxNorm: 357679 05/18 TAB (7.5MG) ORALLY DAILY (DX:MAJOR DEPRESSIVE DISORDER) 06/05/19 23 023 Inactive pregabalin 100 mg capsule RxNorm: 387390 1 Capsule(s) Oral QAM every morning 06/02/19 23 023 Inactive Banophen 50 mg capsule RxNorm: 9890598 Take 1 Capsule(s) Oral Q6H every 6 hours as needed 05/19/19 23 No Stop Date Active Novolog Flexpen U-100 Insulin aspart 100 unit/mL (3 mL) subcutaneous RxNorm: 6313819 Inject 10 Unit(s) Subcutaneous QHS every night at bedtime with nighttime snack 04/08/20 Inactive Novolog Flexpen U-100 Insulin aspart 100 unit/mL (3 mL) subcutaneous RxNorm: 6776751 Inject 42 Unit(s) Subcutaneous TID in addition to sliding scale 04/08/20 Inactive d/c 36u albuterol sulfate HFA 90 mcg/actuation aerosol inhaler RxNorm: 6361356 Take 2 Puff(s) Inhalation Q4H every four hours as needed as needed for SOB, cough, or wheezing 04/07/20 030 Active Banophen 50 mg capsule RxNorm: 4654689 Take 1 Capsule(s) Oral Q6H every 6 hours as needed 04/06/20 023 Inactive diphenhydramine 50 mg tablet RxNorm: 1305781 Take 1 Tablet(s) Oral Q6H every 6 hours as needed 04/06/20 022 Inactive diphenhydramine 50 mg tablet RxNorm: 8293568 1 Tablet(s) Oral Q6H every 6 hours as needed 04/06/20 022 Inactive Abilify 15 mg tablet RxNorm: 173205 1/2 Tablet(s) Oral QD 03/10/20 023 Inactive Shingrix (PF) 50 mcg/0.5 mL intramuscular suspension, kit RxNorm: 1416691 Administer 1/2 Milliliter(s) Intramuscular QD one time shingrix step 2 ( step 1 given 11/04/21) WITH needle - Nursing please administer upon arrival and once administered 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, building specialist, 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, and lot# so we can update [facility] 02/18/20 22 022 Inactive dispense with needle Shingrix (PF) 50 mcg/0.5 mL intramuscular suspension, kit RxNorm: 5915024 Administer 1/2 Milliliter(s) Intramuscular QD one time shingrix step 2 ( step 1 given 11/04/21) WITH needle - Nursing please administer upon arrival and once administered 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, building specialist, 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, and lot# so we can update [facility] 02/18/20 022 Inactive dispense with needle acetaminophen 500 mg tablet RxNorm: 245743 Take 1 Tablet(s) Oral TID 01/08/20 22 023 Active d/c PRN order polyethylene glycol 3350 17 gram/dose oral powder RxNorm: 902997 Take 17=1 capful Gram(s) Oral QD mix with 4-8oz of liquid 01/08/20 22 023 Active take this in addition to BID prn order Lyrica 100 mg capsule RxNorm: 856808 Take 1 Capsule(s) Oral QAM every morning 01/08/20 22 022 Inactive d/c 50mg dose Lyrica 150 mg capsule RxNorm: 231486 Take 1 Capsule(s) Oral QHS every night at bedtime 01/08/20 22 023 Inactive d/c 100mg dose Abilify 5 mg tablet RxNorm: 789201 Take 1 Tablet(s) Oral QD take 1 tab po QD #30 refill 5 dx: MDD 12/12/19 22 022 Inactive Abilify 5 mg tablet RxNorm: 913459 Take 1 Tablet(s) Oral QD take 1 tab po QD #30 refill 5 dx: MDD 12/12/19 22 022 Inactive chlorthalidone 25 mg tablet RxNorm: 653092 Take 1 Tablet(s) Oral QAM every morning 12/10/19 22 023 Active Novolog Flexpen U-100 Insulin aspart 100 unit/mL (3 mL) subcutaneous RxNorm: 3179766 Inject 42 Unit(s) Subcutaneous TID in addition to sliding scale 12/10/19 22 022 Inactive d/c 36u pregabalin 50 mg capsule RxNorm: 320239 Take 1 Capsule(s) Oral QAM every morning 11/12/19 22 022 Inactive tetanus-diphtheria toxoids-Td 2 Lf unit-2 Lf unit/0.5 mL IM suspension RxNorm: 139 Take 0.5 Miscellaneous Intramuscular 11/12/19 22 022 Inactive need tdap - nursing to administer upon arrival pregabalin 50 mg capsule RxNorm: 957125 Take 1 Capsule(s) Oral QAM every morning 10/16/19 22 022 Inactive pregabalin 50 mg capsule RxNorm: 172356 Take 1 Capsule(s) Oral QAM every morning 10/16/19 22 022 Inactive pregabalin 50 mg capsule RxNorm: 571567 1 Capsule(s) Oral QAM every morning 10/15/19 22 022 Inactive Shingrix (PF) 50 mcg/0.5 mL intramuscular suspension, kit RxNorm: 7680864 Administer 1/2 Milliliter(s) Intramuscular one time Nursing please administer upon arrival and once administered 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, building specialist, 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 10/09/19 22 022 Inactive shingrix step 1 Shingrix (PF) 50 mcg/0.5 mL intramuscular suspension, kit RxNorm: 8194901 Administer 1/2 Milliliter(s) Intramuscular one time Nursing please administer upon arrival and once administered 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, building specialist, 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 10/09/19 22 022 Inactive shingrix step 1 cholecalciferol (vitamin D3) 1,250 mcg (50,000 unit) capsule RxNorm: 599413 Take 1 Capsule(s) Oral QW once a [...] aspart 100 unit/mL (3 mL) subcutaneous RxNorm: 5193384 Inject 10 Unit(s) Subcutaneous QHS every night at bedtime with nighttime snack 10/08/19 22 022 Inactive Shingrix (PF) 50 mcg/0.5 mL intramuscular suspension, kit RxNorm: 7783891 ADMINISTER 2-DOSE SERIES PER CDC GUIDELINES 10/08/19 22 Active Shingrix (PF) 50 mcg/0.5 mL intramuscular suspension, kit RxNorm: 5365245 ADMINISTER 2-DOSE SERIES PER CDC GUIDELINES 10/08/19 22 Inactive Novolog Flexpen U-100 Insulin aspart 100 unit/mL (3 mL) subcutaneous RxNorm: 7395322 Inject 36 Unit(s) Subcutaneous TID in addition to sliding scale 10/08/19 Inactive Novofine Autocover 30 gauge x 1/3 needle RxNorm: Use 1 Miscellaneous UD as directed Use 1 needle as directed to administer insulin 5 times a day Dx:E11.42. 10/03/19 Inactive ok to substitute with any covered alternative pen needle benzoyl peroxide 10 % topical cleanser RxNorm: 824404 Apply 1 Application Topical QD apply to face, wash rinse and dry once daily (may change to QOD if drying) 08/19/19 022 Inactive (%covered by insurance) #60ml refill 11 dx: acne benzoyl peroxide 10 % topical cleanser RxNorm: 756003 Apply 1 Application Topical QD apply to face, wash rinse and dry once daily (may change to QOD if drying) 08/19/19 Inactive (%covered by insurance) #60ml refill 11 dx: acne benzoyl peroxide 10 % topical cleanser RxNorm: 390559 Apply 1 Application Topical QD apply to face, wash rinse and dry once daily (may change to QOD if drying) 08/19/19 22 022 Inactive (%covered by insurance) #60ml refill 11 dx: acne Lyrica 50 mg capsule RxNorm: 994804 Take 1 Capsule(s) Oral QAM every morning Take 1 capsule by mouth once daily 08/19/19 22 022 Inactive benzoyl peroxide 10 % topical cleanser RxNorm: 961762 Apply 1 Application Topical QD apply to face, wash rinse and dry once daily (may change to QOD if drying) 08/19/19 22 022 Inactive (%covered by insurance) #60ml refill 11 dx: acne Lyrica 100 mg capsule RxNorm: 158025 Take 1 Capsule(s) Oral QHS every night at bedtime Take 1 capsule by mouth once daily at bedtime 08/19/19 22 022 Inactive Lyrica 100 mg capsule RxNorm: 184405 Take 1 Capsule(s) Oral QHS every night at bedtime Take 1 capsule by mouth once daily at bedtime 08/16/19 22 022 Inactive Lyrica 50 mg capsule RxNorm: 948023 Take 1 Capsule(s) Oral QAM every morning Take 1 capsule by mouth once daily 08/16/19 22 022 Inactive Levemir FlexTouch U-100 Insulin 100 unit/mL (3 mL) subcutaneous pen RxNorm: 304910 Inject 86 Unit(s) Subcutaneous BID 08/05/19 22 022 Inactive d/c 83units BID Lyrica 100 mg capsule RxNorm: 533524 Take 1 Capsule(s) Oral QHS every night at bedtime Take 1 capsule by mouth once daily at bedtime 07/14/19 22 022 Inactive Lyrica 50 mg capsule RxNorm: 808225 Take 1 Capsule(s) Oral QAM every morning Take 1 capsule by mouth once daily 07/14/19 22 022 Inactive Levemir FlexTouch U-100 Insulin 100 unit/mL (3 mL) subcutaneous pen RxNorm: 991104 Inject 83 Unit(s) Subcutaneous BID 07/08/19 22 [...] 30 mg tablet,extended release 24 hr RxNorm: 858196 Take 1 Tablet(s) Oral QD 05/05/20 No Stop Date Active hydralazine 50 mg tablet RxNorm: 613404 Take 1 Tablet(s) Oral QID 05/05/20 21 022 Inactive venlafaxine ER 225 mg tablet,extended release 24 hr RxNorm: 623967 Take 1 Tablet(s) Oral QD 05/05/20 21 Inactive venlafaxine ER 225 mg tablet,extended release 24 hr RxNorm: 302984 Take 1 Tablet(s) Oral QD 05/05/20 21 022 Inactive hydralazine 50 mg tablet RxNorm: 320270 Take 1 Tablet(s) Oral QID 05/05/20 21 Inactive aspirin 81 mg tablet,delayed release RxNorm: 271919 Take 1 Tablet(s) Oral QD 03/31/20 21 022 Inactive Zetia 10 mg tablet RxNorm: 840990 Take 1 Tablet(s) Oral QD 03/31/20 21 022 Inactive Vitamin D2 1,250 mcg (50,000 unit) capsule RxNorm: 8414172 Take 1 Capsule(s) Oral QW once a week x 12 weeks 03/31/20 022 Inactive Vitamin D2 1,250 mcg (50,000 unit) capsule RxNorm: 8679938 Take 1 Capsule(s) Oral QW once a week 03/31/20 Inactive Zetia 10 mg tablet RxNorm: 573257 Take 1 Tablet(s) Oral QD 03/31/20 021 Inactive hydralazine 25 mg tablet RxNorm: 994449 Take 1 Tablet(s) Oral QID 03/31/20 021 Inactive hydralazine 25 mg tablet RxNorm: 494236 Take 1 Tablet(s) Oral QID 03/31/20 Inactive hydralazine 10 mg tablet RxNorm: 313205 Take 1 Tablet(s) Oral QID 03/03/20 021 Inactive cephalexin 500 mg tablet RxNorm: 433253 Take 1 Tablet(s) Oral QID 02/27/20 021 Inactive cephalexin 500 mg tablet RxNorm: 838435 Take 1 Tablet(s) Oral QID 02/27/20 021 Inactive lisinopril 40 mg tablet RxNorm: 028553 Take 1 Tablet(s) Oral QD 02/11/20 023 Inactive Eliquis 5 mg tablet RxNorm: 0737417 Take 1 Tablet(s) Oral BID 01/05/20 022 Inactive Eliquis 5 mg tablet RxNorm: 0818272 Take 2 Tablet(s) Oral QD 01/01/20 21 021 Inactive Lyrica 50 mg capsule RxNorm: 040970 Take 1 Capsule(s) Oral QAM every morning 12/24/19 21 021 Inactive Lyrica 100 mg capsule RxNorm: 446141 Take 1 Capsule(s) Oral QHS every night at bedtime 12/24/19 21 021 Inactive clotrimazole 1 % topical cream RxNorm: 157113 Apply to right foot and toes Topical BID 12/04/19 21 023 Inactive metoprolol succinate ER 200 mg tablet,extended release 24 hr RxNorm: 751781 Take 1 Tablet(s) Oral QD 12/04/19 023 Inactive ciprofloxacin 500 mg tablet RxNorm: 864977 Take 1 Tablet(s) Oral QD 11/30/19 21 021 Inactive DX ofloxacin otic drops Accu-Chek Guide test strips RxNorm: USE 1 TO CHECK GLUCOSE 4 TIMES DAILY AND NEEDED 11/15/19 21 023 Inactive Blood Glucose Test strips RxNorm: Use 1 Test Strip QID at PRN 11/05/19 21 023 Inactive E11.42 lisinopril 30 mg tablet RxNorm: 780378 Take 1 Tablet(s) Oral QD 10/30/19 021 Inactive lisinopril 20 mg tablet RxNorm: 938046 Take 1 Tablet(s) Oral QD 10/23/19 021 Inactive lisinopril 20 mg tablet RxNorm: 225708 Take 1 Tablet(s) Oral QD 10/23/19 21 021 Inactive lisinopril 10 mg tablet RxNorm: 211451 Take 1 Tablet(s) Oral QD 10/02/19 021 Inactive icosapent ethyl 1 gram capsule RxNorm: 4608268 Take 2 Capsule(s) (2 gm) Oral BID with meals 09/12/19 022 Inactive Okay to dispense one 2gm tab if you have that available. icosapent ethyl 1 gram capsule RxNorm: 0526482 Take 2 Capsule(s) Oral BID 09/12/19 21 021 Inactive Okay to dispense one 2gm tab if you have that available. amlodipine 10 mg tablet RxNorm: 368350 Take 1 Tablet(s) Oral QD 09/04/19 022 Inactive aspirin 81 mg tablet,delayed release RxNorm: 032699 Take 1 Tablet(s) Oral QD 09/04/19 21 021 Inactive Levemir FlexTouch U-100 Insulin 100 unit/mL (3 mL) subcutaneous pen RxNorm: 319212 Inject 150 Unit(s) Subcutaneous BID 04/20/ 022 Inactive venlafaxine ER 150 mg tablet,extended release 24 hr RxNorm: 433627 Take 1 Tablet(s) Oral QD 09/04/19 Inactive clotrimazole-betame thasone 1 %-0.05 % topical cream RxNorm: 623700 Apply to rash on red area on left abdomen/chest Topical BID 08/10/19 Inactive amlodipine 5 mg tablet RxNorm: 931930 Take 1 Tablet(s) Oral QD 07/31/19 Inactive cephalexin 500 mg tablet RxNorm: 639829 Take 1 Tablet(s) Oral BID BID - Twice Daily 07/31/19 Inactive Start 08/01/20 pantoprazole 40 mg tablet,delayed release RxNorm: 356164 Take 1 Tablet(s) Oral QAM every morning 07/08/19 022 Inactive senna 8.6 mg tablet RxNorm: 611745 Take 1 Tablet(s) Oral QD 07/08/19 022 Inactive pravastatin 80 mg tablet RxNorm: 290850 Take 1 Tablet(s) Oral QHS every night at bedtime 07/08/19 022 Inactive carbamazepine 200 mg tablet RxNorm: 365871 Take 1 Tablet(s) Oral BID 07/08/19 022 Inactive torsemide 20 mg tablet RxNorm: 069951 Take 1 Tablet(s) Oral QD 07/08/19 21 023 Inactive clopidogrel 75 mg tablet RxNorm: 173760 Take 1 Tablet(s) Oral QD 07/08/19 021 Inactive Blood Glucose Test strips RxNorm: Use 1 Test Strip QID at PRN 07/08/19 Inactive E11.42 Novolog Flexpen U-100 Insulin aspart 100 unit/mL (3 mL) subcutaneous RxNorm: 0527548 Administer per sliding scale Milliliter(s) Subcutaneous TID 151-200: 10 u; 201-250: 20 u; 251-300: 30 u; 301-350: 40 u; 351-400: 50 u. 07/08/19 022 Inactive lisinopril 5 mg tablet RxNorm: 506151 Take 1 Tablet(s) Oral QD 07/08/19 021 Inactive Novolog Flexpen U-100 Insulin aspart 100 unit/mL (3 mL) subcutaneous RxNorm: 8695860 Inject 85 Unit(s) Subcutaneous TID 07/08/19 022 Inactive clotrimazole 1 % topical cream RxNorm: 319461 Apply to bilateral groin areas Topical BID 07/08/19 022 Inactive metoprolol succinate ER 200 mg tablet,extended release 24 hr RxNorm: 665657 Take 1 Tablet(s) Oral QD 07/08/19 021 Inactive Vitamin D3 25 mcg (1,000 unit) tablet RxNorm: 218394 Take 1 Tablet(s) Oral QD 07/08/19 021 Inactive isosorbide dinitrate 30 mg tablet RxNorm: 243008 Take 1 Tablet(s) Oral QD 07/08/19 021 Inactive Levemir FlexTouch U-100 Insulin 100 unit/mL (3 mL) subcutaneous pen RxNorm: 164779 Inject 140 Unit(s) Subcutaneous BID 07/08/19 021 Inactive venlafaxine 75 mg tablet RxNorm: 076918 Take 1 Tablet(s) Oral QD 07/08/19 021 Inactive acetaminophen 500 mg tablet RxNorm: 953334 Take 1 Tablet(s) Oral TID as needed for headache 06/18/19 021 Inactive acetaminophen 500 mg tablet RxNorm: 441050 Take 1 Tablet(s) Oral TID as needed for headache 06/18/19 021 Inactive Lyrica 100 mg capsule RxNorm: 036774 Take 1 Capsule(s) Oral QHS every night at bedtime 06/11/19 021 Inactive Lyrica 50 mg capsule RxNorm: 464279 Take 1 Capsule(s) Oral QAM every morning 06/10/19 21 021 Inactive hydrocortisone 2.5 % topical cream RxNorm: 748088 Apply to bilateral groin creases Topical BID 05/15/20 20 01/05/2 021 Inactive clotrimazole 1 % topical cream RxNorm: 578881 Apply to bilateral groin areas Topical BID 05/15/20 20 Inactive Lyrica 50 mg capsule RxNorm: 356873 Take 1 Capsule(s) Oral QAM every morning 05/14/20 20 Inactive Lyrica 100 mg capsule RxNorm: 594767 Take 1 Capsule(s) Oral QHS every night [...] Inactive Nystop 100,000 unit/gram topical powder RxNorm: 544142 Apply to abd folds, under breasts and L side of groin Topical BID x 14 days, then BID PRN 04/08/20 20 021 Inactive dx: yeast dermatitis Lyrica 100 mg capsule RxNorm: 298933 Take 1 Capsule(s) Oral QHS every night at bedtime 03/13/20 20 Inactive Lyrica 50 mg capsule RxNorm: 645663 Take 1 Capsule(s) Oral QAM every morning 03/13/20 20 Inactive ketoconazole 2 % shampoo RxNorm: 375936 Apply Topical two times a week with showers 03/11/20 20 Inactive cholecalciferol (vitamin D3) 50 mcg (2,000 unit) tablet RxNorm: 225151 Take 1 Tablet(s) Oral QD 03/11/20 Inactive Zetia 10 mg tablet RxNorm: 015600 Take 1 Tablet(s) Oral QD 03/07/20 Inactive Zetia 10 mg tablet RxNorm: 903068 Take 1 Tablet(s) Oral QD 03/07/20 20 Inactive Lyrica 50 mg capsule RxNorm: 860234 Take 1 Capsule(s) Oral QAM every morning 02/15/20 Inactive Lyrica 100 mg capsule RxNorm: 650458 Take 1 Capsule(s) Oral QHS every night at bedtime 02/15/20 Inactive Lyrica 100 mg capsule RxNorm: 989938 Take 1 Capsule(s) Oral QHS every night at bedtime 02/15/20 Inactive Lyrica 50 mg capsule RxNorm: 338033 Take 1 Capsule(s) Oral QAM every morning 02/15/20 Inactive venlafaxine ER 75 mg capsule,extended release 24 hr RxNorm: 653183 Take 3 Capsule(s) Oral QD 06/12/19 Active polyethylene glycol 3350 17 gram/dose oral powder RxNorm: 332349 Take 17=1 capful Gram(s) Oral BID as needed mix with 4-8oz of liquid 06/12/19 Active Levemir FlexTouch U-100 Insulin 100 unit/mL (3 mL) subcutaneous pen RxNorm: 890142 Inject 80 Unit(s) Subcutaneous BID 07/14/19 23 023 Inactive loperamide 2 mg capsule RxNorm: 271094 Take 1 Capsule(s) Oral QID as needed 06/12/19 Active Novolog Flexpen U-100 Insulin aspart 100 unit/mL (3 mL) subcutaneous RxNorm: 5135837 Insert 30 Unit(s) Subcutaneous TID with meals [...] Codes Status Date Referral: [facility] WPtel: [phone], [address] [id number] [place] Referral Records Received 09/21/2022 Referral: [facility] WPtel: [address] [id number] [place] Referral Completed 05/28/2021 Referral: General Cardiology [...] a hospitalization 05/2021 he moved to the [facility] to have closer nursing attention. Sister Jyotsna involved in his care cell# [phone] Guardian: Don (tapan met in person 09/01/21), now has Lexii (same group as don)Lab Schedule: * 10/06/2022
--- OUTSIDE RECORDS SUMMARY | 2022-06-18 19:00 | XMS_ITS | CCD ---
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 Mid Level Project Manager Name Role Phone Tapan Shirley PA-C Primary Care Provider Unavailabl e Tapan Shirley PA-C Chronic Care Management Unavaila ble Summary Purpose DataExchange Insurance Providers Payer name Policy type / Coverage type Covered republican ID Effective Begin Date Effective End Date Medicare [place] Medicare Part B [id number] Unknown Unknown Medicaid [place] Medicare Part B [id number] Unknown Unknown Family history Sister Brittany Suggs [...] Snf 09/03/[address]: 3816013 Non-Smoker / No History of Smoking 09/02/[address]: 408510524 No Alcohol Consum ption 09/02/2020 Allergies, Adverse Reactions, Alerts Substance Reaction Codes Entered Date Inactivated Date Status LISINOPRIL RxNorm: 33699 02/12/2020 No Inactive Da te Active Metformin [...] 05/01/2022 Active Coronary artery disease invo lving [place] coronary artery of [place] heart, angina presence unspecified ICD-10: I25.10 [...] immunization ICD-10: Z23 ICD-9: V03.89 02/10/2022 Resolved group home (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 insulin ICD-10: Z79.4 02/10 [...] Fill Instructions Diflucan 150 mg tablet RxNorm: 428948 Take 1 Tablet(s) Oral QD repeat on day 3 and 6 06/30/19 23 023 Inactive dextromethorphan-gu aifenesin 10 mg-100 mg/5 mL oral liquid RxNorm: 587657 Take 10 Milliliter(s) Oral every 4 hours as needed for cough 06/19/19 23 023 Inactive dextromethorphan-gu aifenesin 10 mg-100 mg/5 mL oral liquid RxNorm: 465153 Take 10 Milliliter(s) Oral every 4 hours as needed for cough 06/19/19 23 023 Inactive Lyrica 150 mg capsule RxNorm: 857032 Take 1 Capsule(s) Oral QHS every night at bedtime 06/18/19 23 023 Inactive d/c 100mg dose aripiprazole 15 mg tablet RxNorm: 810813 05/18 TAB (7.5MG) ORALLY DAILY (DX:MAJOR DEPRESSIVE DISORDER) 01/20 023 Inactive pregabalin 100 mg capsule RxNorm: 489963 1 Capsule(s) Oral QAM every morning 06/02/19 023 Inactive Banophen 50 mg capsule RxNorm: 3922302 Take 1 Capsule(s) Oral Q6H every 6 hours as needed 05/19/19 No Stop Date Active Novolog Flexpen U-100 Insulin aspart 100 unit/mL (3 mL) subcutaneous RxNorm: 9193393 Inject 10 Unit(s) Subcutaneous QHS every night at bedtime with nighttime snack 04/08/20 022 Inactive Novolog Flexpen U-100 Insulin aspart 100 unit/mL (3 mL) subcutaneous RxNorm: 7113195 Inject 42 Unit(s) Subcutaneous TID in addition to sliding scale 04/08/20 Inactive d/c 36u albuterol sulfate HFA 90 mcg/actuation aerosol inhaler RxNorm: 1793738 Take 2 Puff(s) Inhalation Q4H every four hours as needed as needed for SOB, cough, or wheezing 04/07/20 030 Active Banophen 50 mg capsule RxNorm: 6759364 Take 1 Capsule(s) Oral Q6H every 6 hours as needed 04/06/20 023 Inactive diphenhydramine 50 mg tablet RxNorm: 5320388 Take 1 Tablet(s) Oral Q6H every 6 hours as needed 04/06/20 022 Inactive diphenhydramine 50 mg tablet RxNorm: 0180352 1 Tablet(s) Oral Q6H every 6 hours as needed 04/06/20 022 Inactive Abilify 15 mg tablet RxNorm: 298614 1/2 Tablet(s) Oral QD 03/10/20 22 023 Inactive Shingrix (PF) 50 mcg/0.5 mL intramuscular suspension, kit RxNorm: 1739300 Administer 1/2 Milliliter(s) Intramuscular QD one time shingrix step 2 ( step 1 given 11/04/21) WITH needle - Nursing please administer upon arrival and once administered 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, police surgeon, 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, and lot# so we can update [facility] 02/18/20 22 022 Inactive dispense with needle Shingrix (PF) 50 mcg/0.5 mL intramuscular suspension, kit RxNorm: 8380346 Administer 1/2 Milliliter(s) Intramuscular QD one time shingrix step 2 ( step 1 given 11/04/21) WITH needle - Nursing please administer upon arrival and once administered 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, police surgeon, 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, and lot# so we can update [facility] 02/18/20 22 022 Inactive dispense with needle acetaminophen 500 mg tablet RxNorm: 303279 Take 1 Tablet(s) Oral TID 01/08/20 22 023 Active d/c PRN order polyethylene glycol 3350 17 gram/dose oral powder RxNorm: 057686 Take 17=1 capful Gram(s) Oral QD mix with 4-8oz of liquid 01/08/20 22 023 Active take this in addition to BID prn order Lyrica 100 mg capsule RxNorm: 221577 Take 1 Capsule(s) Oral QAM every morning 01/08/20 22 022 Inactive d/c 50mg dose Lyrica 150 mg capsule RxNorm: 194577 Take 1 Capsule(s) Oral QHS every night at bedtime 01/08/20 22 023 Inactive d/c 100mg dose Abilify 5 mg tablet RxNorm: 676888 Take 1 Tablet(s) Oral QD take 1 tab po QD #30 refill 5 dx: MDD 12/12/19 22 022 Inactive Abilify 5 mg tablet RxNorm: 880310 Take 1 Tablet(s) Oral QD take 1 tab po QD #30 refill 5 dx: MDD 12/12/19 22 022 Inactive chlorthalidone 25 mg tablet RxNorm: 859781 Take 1 Tablet(s) Oral QAM every morning 12/10/19 22 023 Active Novolog Flexpen U-100 Insulin aspart 100 unit/mL (3 mL) subcutaneous RxNorm: 2670876 Inject 42 Unit(s) Subcutaneous TID in addition to sliding scale 12/10/19 22 022 Inactive d/c 36u pregabalin 50 mg capsule RxNorm: 321172 Take 1 Capsule(s) Oral QAM every morning 11/12/19 22 022 Inactive tetanus-diphtheria toxoids-Td 2 Lf unit-2 Lf unit/0.5 mL IM suspension RxNorm: 139 Take 0.5 Miscellaneous Intramuscular 11/12/19 22 022 Inactive need tdap - nursing to administer upon arrival pregabalin 50 mg capsule RxNorm: 960961 Take 1 Capsule(s) Oral QAM every morning 10/16/19 22 022 Inactive pregabalin 50 mg capsule RxNorm: 063185 Take 1 Capsule(s) Oral QAM every morning 10/16/19 22 022 Inactive pregabalin 50 mg capsule RxNorm: 004182 1 Capsule(s) Oral QAM every morning 10/15/19 22 022 Inactive Shingrix (PF) 50 mcg/0.5 mL intramuscular suspension, kit RxNorm: 8329565 Administer 1/2 Milliliter(s) Intramuscular one time Nursing please administer upon arrival and once administered 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, police surgeon, 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 10/09/19 22 022 Inactive shingrix step 1 Shingrix (PF) 50 mcg/0.5 mL intramuscular suspension, kit RxNorm: 1188821 Administer 1/2 Milliliter(s) Intramuscular one time Nursing please administer upon arrival and once administered 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, police surgeon, 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 10/09/19 22 022 Inactive shingrix step 1 cholecalciferol (vitamin D3) 1,250 mcg (50,000 unit) capsule RxNorm: 075711 Take 1 Capsule(s) Oral QW once a [...] aspart 100 unit/mL (3 mL) subcutaneous RxNorm: 8494822 Inject 10 Unit(s) Subcutaneous QHS every night at bedtime with nighttime snack 10/08/19 22 Inactive Shingrix (PF) 50 mcg/0.5 mL intramuscular suspension, kit RxNorm: 5477914 ADMINISTER 2-DOSE SERIES PER CDC GUIDELINES 10/08/19 22 Active Shingrix (PF) 50 mcg/0.5 mL intramuscular suspension, kit RxNorm: 4796232 ADMINISTER 2-DOSE SERIES PER CDC GUIDELINES 10/08/19 22 Inactive Novolog Flexpen U-100 Insulin aspart 100 unit/mL (3 mL) subcutaneous RxNorm: 9661019 Inject 36 Unit(s) Subcutaneous TID in addition to sliding scale 10/08/19 22 Inactive Novofine Autocover 30 gauge x 1/3 needle RxNorm: Use 1 Miscellaneous UD as directed Use 1 needle as directed to administer insulin 5 times a day Dx:E11.42. 10/03/19 Inactive ok to substitute with any covered alternative pen needle benzoyl peroxide 10 % topical cleanser RxNorm: 109181 Apply 1 Application Topical QD apply to face, wash rinse and dry once daily (may change to QOD if drying) 08/19/19 22 022 Inactive (%covered by insurance) #60ml refill 11 dx: acne benzoyl peroxide 10 % topical cleanser RxNorm: 379175 Apply 1 Application Topical QD apply to face, wash rinse and dry once daily (may change to QOD if drying) 08/19/19 22 022 Inactive (%covered by insurance) #60ml refill 11 dx: acne benzoyl peroxide 10 % topical cleanser RxNorm: 495927 Apply 1 Application Topical QD apply to face, wash rinse and dry once daily (may change to QOD if drying) 08/19/19 22 022 Inactive (%covered by insurance) #60ml refill 11 dx: acne Lyrica 50 mg capsule RxNorm: 829310 Take 1 Capsule(s) Oral QAM every morning Take 1 capsule by mouth once daily 08/19/19 22 022 Inactive benzoyl peroxide 10 % topical cleanser RxNorm: 349218 Apply 1 Application Topical QD apply to face, wash rinse and dry once daily (may change to QOD if drying) 08/19/19 22 022 Inactive (%covered by insurance) #60ml refill 11 dx: acne Lyrica 100 mg capsule RxNorm: 933254 Take 1 Capsule(s) Oral QHS every night at bedtime Take 1 capsule by mouth once daily at bedtime 08/19/19 022 Inactive Lyrica 100 mg capsule RxNorm: 936010 Take 1 Capsule(s) Oral QHS every night at bedtime Take 1 capsule by mouth once daily at bedtime 08/16/19 22 022 Inactive Lyrica 50 mg capsule RxNorm: 860744 Take 1 Capsule(s) Oral QAM every morning Take 1 capsule by mouth once daily 08/16/19 22 022 Inactive Levemir FlexTouch U-100 Insulin 100 unit/mL (3 mL) subcutaneous pen RxNorm: 126787 Inject 86 Unit(s) Subcutaneous BID 08/05/19 22 022 Inactive d/c 83units BID Lyrica 100 mg capsule RxNorm: 754737 Take 1 Capsule(s) Oral QHS every night at bedtime Take 1 capsule by mouth once daily at bedtime 07/14/19 022 Inactive Lyrica 50 mg capsule RxNorm: 807934 Take 1 Capsule(s) Oral QAM every morning Take 1 capsule by mouth once daily 07/14/19 22 022 Inactive Levemir FlexTouch U-100 Insulin 100 unit/mL (3 mL) subcutaneous pen RxNorm: 933506 Inject 83 Unit(s) Subcutaneous BID 07/08/19 22 022 Inactive d/c 80units BID Accu-Chek Guide Glucose Meter RxNorm: Use 1 Miscellaneous UD as directed Use glucose meter to monitor blood glucose 4 times daily and as needed. Dx:E11.06/05/19 No Stop Date Active ok to substitute [...] 30 mg tablet,extended release 24 hr RxNorm: 128363 Take 1 Tablet(s) Oral QD 05/05/20 No Stop Date Active hydralazine 50 mg tablet RxNorm: 377271 Take 1 Tablet(s) Oral QID 05/05/20 21 022 Inactive venlafaxine ER 225 mg tablet,extended release 24 hr RxNorm: 399769 Take 1 Tablet(s) Oral QD 05/05/20 21 021 Inactive venlafaxine ER 225 mg tablet,extended release 24 hr RxNorm: 911912 Take 1 Tablet(s) Oral QD 05/05/20 21 022 Inactive hydralazine 50 mg tablet RxNorm: 067079 Take 1 Tablet(s) Oral QID 05/05/20 Inactive aspirin 81 mg tablet,delayed release RxNorm: 729392 Take 1 Tablet(s) Oral QD 03/31/20 Inactive Zetia 10 mg tablet RxNorm: 917939 Take 1 Tablet(s) Oral QD 03/31/20 Inactive Vitamin D2 1,250 mcg (50,000 unit) capsule RxNorm: 8976216 Take 1 Capsule(s) Oral QW once a week x 12 weeks 03/31/20 Inactive Vitamin D2 1,250 mcg (50,000 unit) capsule RxNorm: 9051356 Take 1 Capsule(s) Oral QW once a week 03/31/20 Inactive Zetia 10 mg tablet RxNorm: 678722 Take 1 Tablet(s) Oral QD 03/31/20 Inactive hydralazine 25 mg tablet RxNorm: 999321 Take 1 Tablet(s) Oral QID 03/31/20 021 Inactive hydralazine 25 mg tablet RxNorm: 597484 Take 1 Tablet(s) Oral QID 03/31/20 021 Inactive hydralazine 10 mg tablet RxNorm: 921407 Take 1 Tablet(s) Oral QID 03/03/20 021 Inactive cephalexin 500 mg tablet RxNorm: 291384 Take 1 Tablet(s) Oral QID 02/27/20 021 Inactive cephalexin 500 mg tablet RxNorm: 523890 Take 1 Tablet(s) Oral QID 02/27/20 021 Inactive lisinopril 40 mg tablet RxNorm: 150974 Take 1 Tablet(s) Oral QD 02/11/20 023 Inactive Eliquis 5 mg tablet RxNorm: 6448790 Take 1 Tablet(s) Oral BID 01/05/20 022 Inactive Eliquis 5 mg tablet RxNorm: 9410058 Take 2 Tablet(s) Oral QD 01/01/20 21 021 Inactive Lyrica 50 mg capsule RxNorm: 731766 Take 1 Capsule(s) Oral QAM every morning 12/24/19 21 021 Inactive Lyrica 100 mg capsule RxNorm: 328923 Take 1 Capsule(s) Oral QHS every night at bedtime 12/24/19 21 021 Inactive clotrimazole 1 % topical cream RxNorm: 038030 Apply to right foot and toes Topical BID 12/04/19 21 023 Inactive metoprolol succinate ER 200 mg tablet,extended release 24 hr RxNorm: 764487 Take 1 Tablet(s) Oral QD 12/04/19 21 023 Inactive ciprofloxacin 500 mg tablet RxNorm: 478927 Take 1 Tablet(s) Oral QD 11/30/19 21 021 Inactive DX ofloxacin otic drops Accu-Chek Guide test strips RxNorm: USE 1 TO CHECK GLUCOSE 4 TIMES DAILY AND NEEDED 11/15/19 21 023 Inactive Blood Glucose Test strips RxNorm: Use 1 Test Strip QID at PRN 11/05/19 21 023 Inactive E11.42 lisinopril 30 mg tablet RxNorm: 838705 Take 1 Tablet(s) Oral QD 10/30/19 021 Inactive lisinopril 20 mg tablet RxNorm: 136642 Take 1 Tablet(s) Oral QD 10/23/19 21 021 Inactive lisinopril 20 mg tablet RxNorm: 037862 Take 1 Tablet(s) Oral QD 10/23/19 021 Inactive lisinopril 10 mg tablet RxNorm: 603764 Take 1 Tablet(s) Oral QD 10/02/19 21 021 Inactive icosapent ethyl 1 gram capsule RxNorm: 3998792 Take 2 Capsule(s) (2 gm) Oral BID with meals 09/12/19 21 022 Inactive Okay to dispense one 2gm tab if you have that available. icosapent ethyl 1 gram capsule RxNorm: 4222103 Take 2 Capsule(s) Oral BID 09/12/19 21 021 Inactive Okay to dispense one 2gm tab if you have that available. amlodipine 10 mg tablet RxNorm: 678634 Take 1 Tablet(s) Oral QD 09/04/19 022 Inactive aspirin 81 mg tablet,delayed release RxNorm: 011296 Take 1 Tablet(s) Oral QD 09/04/19 021 Inactive Levemir FlexTouch U-100 Insulin 100 unit/mL (3 mL) subcutaneous pen RxNorm: 945219 Inject 150 Unit(s) Subcutaneous BID 09/04/19 022 Inactive venlafaxine ER 150 mg tablet,extended release 24 hr RxNorm: 716766 Take 1 Tablet(s) Oral QD 09/04/19 Inactive clotrimazole-betame thasone 1 %-0.05 % topical cream RxNorm: 993278 Apply to rash on red area on left abdomen/chest Topical BID 08/10/19 021 Inactive amlodipine 5 mg tablet RxNorm: 244395 Take 1 Tablet(s) Oral QD 07/31/19 021 Inactive cephalexin 500 mg tablet RxNorm: 571475 Take 1 Tablet(s) Oral BID BID - Twice Daily 07/31/19 021 Inactive Start 08/01/20 pantoprazole 40 mg tablet,delayed release RxNorm: 786146 Take 1 Tablet(s) Oral QAM every morning 07/08/19 022 Inactive senna 8.6 mg tablet RxNorm: 341008 Take 1 Tablet(s) Oral QD 07/08/19 022 Inactive pravastatin 80 mg tablet RxNorm: 111687 Take 1 Tablet(s) Oral QHS every night at bedtime 07/08/19 022 Inactive carbamazepine 200 mg tablet RxNorm: 788026 Take 1 Tablet(s) Oral BID 07/08/19 022 Inactive torsemide 20 mg tablet RxNorm: 504838 Take 1 Tablet(s) Oral QD 07/08/19 21 023 Inactive clopidogrel 75 mg tablet RxNorm: 561249 Take 1 Tablet(s) Oral QD 07/08/19 021 Inactive Blood Glucose Test strips RxNorm: Use 1 Test Strip QID at PRN 07/08/19 21 021 Inactive E11.42 Novolog Flexpen U-100 Insulin aspart 100 unit/mL (3 mL) subcutaneous RxNorm: 8827335 Administer per sliding scale Milliliter(s) Subcutaneous TID 151-200: 10 u; 201-250: 20 u; 251-300: 30 u; 301-350: 40 u; 351-400: 50 u. 07/08/19 21 022 Inactive lisinopril 5 mg tablet RxNorm: 939297 Take 1 Tablet(s) Oral QD 07/08/19 21 021 Inactive Novolog Flexpen U-100 Insulin aspart 100 unit/mL (3 mL) subcutaneous RxNorm: 2715657 Inject 85 Unit(s) Subcutaneous TID 07/08/19 21 022 Inactive clotrimazole 1 % topical cream RxNorm: 023078 Apply to bilateral groin areas Topical BID 07/08/19 022 Inactive metoprolol succinate ER 200 mg tablet,extended release 24 hr RxNorm: 587244 Take 1 Tablet(s) Oral QD 07/08/19 21 021 Inactive Vitamin D3 25 mcg (1,000 unit) tablet RxNorm: 052226 Take 1 Tablet(s) Oral QD 07/08/19 21 021 Inactive isosorbide dinitrate 30 mg tablet RxNorm: 058627 Take 1 Tablet(s) Oral QD 07/08/19 021 Inactive Levemir FlexTouch U-100 Insulin 100 unit/mL (3 mL) subcutaneous pen RxNorm: 050197 Inject 140 Unit(s) Subcutaneous BID 07/08/19 021 Inactive venlafaxine 75 mg tablet RxNorm: 274505 Take 1 Tablet(s) Oral QD 07/08/19 021 Inactive acetaminophen 500 mg tablet RxNorm: 698919 Take 1 Tablet(s) Oral TID as needed for headache 06/18/19 21 021 Inactive acetaminophen 500 mg tablet RxNorm: 352486 Take 1 Tablet(s) Oral TID as needed for headache 06/18/19 21 021 Inactive Lyrica 100 mg capsule RxNorm: 287072 Take 1 Capsule(s) Oral QHS every night at bedtime 06/11/19 21 021 Inactive Lyrica 50 mg capsule RxNorm: 805264 Take 1 Capsule(s) Oral QAM every morning 06/10/19 21 021 Inactive hydrocortisone 2.5 % topical cream RxNorm: 226718 Apply to bilateral groin creases Topical BID 05/15/20 20 021 Inactive clotrimazole 1 % topical cream RxNorm: 224414 Apply to bilateral groin areas Topical BID 05/15/20 20 021 Inactive Lyrica 50 mg capsule RxNorm: 644411 Take 1 Capsule(s) Oral QAM every morning 05/14/20 20 020 Inactive Lyrica 100 mg capsule RxNorm: 527896 Take 1 Capsule(s) Oral QHS every night [...] Inactive Nystop 100,000 unit/gram topical powder RxNorm: 879312 Apply to abd folds, under breasts and L side of groin Topical BID x 14 days, then BID PRN 04/08/20 20 021 Inactive dx: yeast dermatitis Lyrica 100 mg capsule RxNorm: 286750 Take 1 Capsule(s) Oral QHS every night at bedtime 10/28/ Inactive Lyrica 50 mg capsule RxNorm: 884263 Take 1 Capsule(s) Oral QAM every morning 03/13/20 Inactive ketoconazole 2 % shampoo RxNorm: 742245 Apply Topical two times a week with showers 03/11/20 Inactive cholecalciferol (vitamin D3) 50 mcg (2,000 unit) tablet RxNorm: 432273 Take 1 Tablet(s) Oral QD 03/11/20 20 Inactive Zetia 10 mg tablet RxNorm: 010828 Take 1 Tablet(s) Oral QD 03/07/20 20 Inactive Zetia 10 mg tablet RxNorm: 673856 Take 1 Tablet(s) Oral QD 03/07/20 20 Inactive Lyrica 50 mg capsule RxNorm: 492608 Take 1 Capsule(s) Oral QAM every morning 02/15/20 Inactive Lyrica 100 mg capsule RxNorm: 341308 Take 1 Capsule(s) Oral QHS every night at bedtime 02/15/20 Inactive Lyrica 100 mg capsule RxNorm: 768385 Take 1 Capsule(s) Oral QHS every night at bedtime 02/15/20 Inactive Lyrica 50 mg capsule RxNorm: 330100 Take 1 Capsule(s) Oral QAM every morning 02/15/20 20 Inactive venlafaxine ER 75 mg capsule,extended release 24 hr RxNorm: 419209 Take 3 Capsule(s) Oral QD 06/12/19 Active polyethylene glycol 3350 17 gram/dose oral powder RxNorm: 451896 Take 17=1 capful Gram(s) Oral BID as needed mix with 4-8oz of liquid 06/12/19 Active Levemir FlexTouch U-100 Insulin 100 unit/mL (3 mL) subcutaneous pen RxNorm: 110244 Inject 80 Unit(s) Subcutaneous BID 07/14/19 23 023 Inactive loperamide 2 mg capsule RxNorm: 265396 Take 1 Capsule(s) Oral QID as needed 01/27/20 22 Active Novolog Flexpen U-100 Insulin aspart 100 unit/mL (3 mL) subcutaneous RxNorm: 5661806 Insert 30 Unit(s) Subcutaneous TID with meals [...] Referral: [facility] WPtel: [phone], [address] [id number] Referral Records Received 09/21/2022 Referral: [facility] WPtel: [address] [id number] [place] Referral Completed 05/28/2021 Referral: General Cardiology [...] Sister Jyotsna involved in his care cell# [phone] Guardian: Don (tapan met in person 09/01/21), now has Lexii (same group as don)Lab Schedule: * 10/06/2022
--- OUTSIDE RECORDS SUMMARY | 2022-06-27 19:00 | XMS_ITS | CCD ---
Author Name Sandra Clark CNP Address [address] [facility] [address] [place] [address] Phone Organization [facility] Phone Care Team Providers Care Editor Department Name Role Phone Tapan Shirley PA-C Primary Care Provider Unavailabl e Tapan Shirley PA-C Chronic Care Management Unavaila ble Summary Purpose DataExchange Insurance Providers Payer name Policy type / Coverage type Covered alliance party ID Effective Begin Date Effective End Date [place] B [id number] Unknown Unknown Medicaid [place] Part B [id number] Unknown Unknown Family history Sister Brittany Suggs Diagnosis Age At Onset No Family Disease Entered N/A Runs in the family Diagnosis Age At Onset No Known Diseases N/A Sister Blanka Mcduffie Diagnosis Age At Onset No Family Disease Entered N/A Social History Social History Element Codes Description Effec tive Dates Marital status Unknown Single 10/07/2021 Living arrangements Unknown Nursing Home 09/03/[address]: 6832472 Non-Smoker / No History of Smoking 09/02/[address]: 408772061 No Alcohol Consum ption 09/02/2020 Allergies, Adverse Reactions, Alerts Substance Reaction Codes Entered Date Inactivated Date Status LISINOPRIL RxNorm: 60987 02/12/2020 No Inactive Da te Active Metformin HCl Unknown 02/12/2020 No Inactive Cristiano e Active Problems Condition Codes Effective Dates Condition St atus High risk medication use ICD-10: Z79.899 ICD-9: V58.69 06/23/2022 Active Major depression, recurrent ICD-10: F33. 9 ICD-9: 296.30 06/23/2022 Active Candidiasis, intertrigo ICD-10: B37.2 ICD-9: 112.3 06/09/2022 [...] failure ICD-10: I11.9 ICD-9: 402.90 05/05/2022 Active Vitamin D deficiency ICD-10: E55.9 ICD-9: 268.9 05/01/2022 Active Coronary artery disease invo lving kake coronary artery of kake heart, angina presence unspecified ICD-10: I25.10 ICD-9: [...] immunization ICD-10: Z23 ICD-9: V03.89 02/10/2022 Resolved [facility]FP (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 insulin ICD-10: Z79.4 02/10 [...] Fill Instructions Diflucan 150 mg tablet RxNorm: 885639 Take 1 Tablet(s) Oral QD repeat on day 3 and 6 06/30/19 23 023 Inactive Accu-Chek Guide test strips RxNorm: Use 1 Test Strip QID Use 1 test strip to monitor blood glucose 4 times daily and as needed. Dx:E11.42. 06/23/19 23 023 Inactive ok to substitute with any covered alternative test strip dextromethorphan-gu aifenesin 10 mg-100 mg/5 mL oral liquid RxNorm: 155539 Take 10 Milliliter(s) Oral every 4 hours as needed for cough 06/19/19 23 023 Inactive dextromethorphan-gu aifenesin 10 mg-100 mg/5 mL oral liquid RxNorm: 584686 Take 10 Milliliter(s) Oral every 4 hours as needed for cough 06/19/19 023 Inactive Lyrica 150 mg capsule RxNorm: 515722 Take 1 Capsule(s) Oral QHS every night at bedtime 06/18/19 023 Inactive d/c 100mg dose aripiprazole 15 mg tablet RxNorm: 732166 /2 TAB (7.5MG) ORALLY DAILY (DX:MAJOR DEPRESSIVE DISORDER) 06/05/19 023 Inactive pregabalin 100 mg capsule RxNorm: 587982 1 Capsule(s) Oral QAM every morning 06/02/19 023 Inactive Banophen 50 mg capsule RxNorm: 5877483 Take 1 Capsule(s) Oral Q6H every 6 hours as needed 05/19/19 No Stop Date Active Novolog Flexpen U-100 Insulin aspart 100 unit/mL (3 mL) subcutaneous RxNorm: 8530405 Inject 10 Unit(s) Subcutaneous QHS every night at bedtime with nighttime snack 04/08/20 022 Inactive Novolog Flexpen U-100 Insulin aspart 100 unit/mL (3 mL) subcutaneous RxNorm: 8002371 Inject 42 Unit(s) Subcutaneous TID in addition to sliding scale 04/08/20 022 Inactive d/c 36u albuterol sulfate HFA 90 mcg/actuation aerosol inhaler RxNorm: 5693084 Take 2 Puff(s) Inhalation Q4H every four hours as needed as needed for SOB, cough, or wheezing 04/07/20 030 Active Banophen 50 mg capsule RxNorm: 7663532 Take 1 Capsule(s) Oral Q6H every 6 hours as needed 04/06/20 023 Inactive diphenhydramine 50 mg tablet RxNorm: 9132820 Take 1 Tablet(s) Oral Q6H every 6 hours as needed 04/06/20 022 Inactive diphenhydramine 50 mg tablet RxNorm: 7792328 1 Tablet(s) Oral Q6H every 6 hours as needed 04/06/20 022 Inactive Abilify 15 mg tablet RxNorm: 899931 1/2 Tablet(s) Oral QD 03/10/20 22 023 Inactive Shingrix (PF) 50 mcg/0.5 mL intramuscular suspension, kit RxNorm: 6420655 Administer 1/2 Milliliter(s) Intramuscular QD one time shingrix step 2 ( step 1 given 11/04/21) WITH needle - Nursing please administer upon arrival and once administered 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, 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, 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, and lot# so we can update [facility]IC 02/18/20 22 022 Inactive dispense with needle Shingrix (PF) 50 mcg/0.5 mL intramuscular suspension, kit RxNorm: 6043850 Administer 1/2 Milliliter(s) Intramuscular QD one time shingrix step 2 ( step 1 given 11/04/21) WITH needle - Nursing please administer upon arrival and once administered 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, 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, 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, and lot# so we can update [facility] 02/18/20 22 022 Inactive dispense with needle acetaminophen 500 mg tablet RxNorm: 040734 Take 1 Tablet(s) Oral TID 01/08/20 22 023 Active d/c PRN order polyethylene glycol 3350 17 gram/dose oral powder RxNorm: 662937 Take 17=1 capful Gram(s) Oral QD mix with 4-8oz of liquid 01/08/20 22 023 Active take this in addition to BID prn order Lyrica 100 mg capsule RxNorm: 272308 Take 1 Capsule(s) Oral QAM every morning 01/08/20 22 022 Inactive d/c 50mg dose Lyrica 150 mg capsule RxNorm: 172224 Take 1 Capsule(s) Oral QHS every night at bedtime 01/08/20 22 023 Inactive d/c 100mg dose Abilify 5 mg tablet RxNorm: 079386 Take 1 Tablet(s) Oral QD take 1 tab po QD #30 refill 5 dx: MDD 12/12/19 22 022 Inactive Abilify 5 mg tablet RxNorm: 177145 Take 1 Tablet(s) Oral QD take 1 tab po QD #30 refill 5 dx: MDD 12/12/19 22 022 Inactive chlorthalidone 25 mg tablet RxNorm: 218872 Take 1 Tablet(s) Oral QAM every morning 12/10/19 22 023 Active Novolog Flexpen U-100 Insulin aspart 100 unit/mL (3 mL) subcutaneous RxNorm: 0083381 Inject 42 Unit(s) Subcutaneous TID in addition to sliding scale 12/10/19 22 Inactive d/c 36u pregabalin 50 mg capsule RxNorm: 533156 Take 1 Capsule(s) Oral QAM every morning 11/12/19 22 022 Inactive tetanus-diphtheria toxoids-Td 2 Lf unit-2 Lf unit/0.5 mL IM suspension RxNorm: 139 Take 0.5 Miscellaneous Intramuscular 11/12/19 022 Inactive need tdap - nursing to administer upon arrival pregabalin 50 mg capsule RxNorm: 677874 Take 1 Capsule(s) Oral QAM every morning 10/16/19 022 Inactive pregabalin 50 mg capsule RxNorm: 436836 Take 1 Capsule(s) Oral QAM every morning 10/16/19 22 022 Inactive pregabalin 50 mg capsule RxNorm: 598014 1 Capsule(s) Oral QAM every morning 10/15/19 22 022 Inactive Shingrix (PF) 50 mcg/0.5 mL intramuscular suspension, kit RxNorm: 4402618 Administer 1/2 Milliliter(s) Intramuscular one time Nursing please administer upon arrival and once administered 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, 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, 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 10/09/19 22 022 Inactive shingrix step 1 Shingrix (PF) 50 mcg/0.5 mL intramuscular suspension, kit RxNorm: 2709087 Administer 1/2 Milliliter(s) Intramuscular one time Nursing please administer upon arrival and once administered 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, 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, 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 10/09/19 22 022 Inactive shingrix step 1 cholecalciferol (vitamin D3) 1,250 mcg (50,000 unit) capsule RxNorm: 634158 Take 1 Capsule(s) Oral QW once a [...] aspart 100 unit/mL (3 mL) subcutaneous RxNorm: 8280222 Inject 10 Unit(s) Subcutaneous QHS every night at bedtime with nighttime snack 10/08/19 22 Inactive Shingrix (PF) 50 mcg/0.5 mL intramuscular suspension, kit RxNorm: 6243996 ADMINISTER 2-DOSE SERIES PER CDC GUIDELINES 10/08/19 22 Active Shingrix (PF) 50 mcg/0.5 mL intramuscular suspension, kit RxNorm: 8441611 ADMINISTER 2-DOSE SERIES PER CDC GUIDELINES 10/08/19 22 Inactive Novolog Flexpen U-100 Insulin aspart 100 unit/mL (3 mL) subcutaneous RxNorm: 9886815 Inject 36 Unit(s) Subcutaneous TID in addition to sliding scale 10/08/19 22 Inactive Novofine Autocover 30 gauge x 1/3 needle RxNorm: Use 1 Miscellaneous UD as directed Use 1 needle as directed to administer insulin 5 times a day Dx:E11.42. 10/03/19 22 Inactive ok to substitute with any covered alternative pen needle benzoyl peroxide 10 % topical cleanser RxNorm: 764214 Apply 1 Application Topical QD apply to face, wash rinse and dry once daily (may change to QOD if drying) 08/19/19 22 Inactive (%covered by insurance) #60ml refill 11 dx: acne benzoyl peroxide 10 % topical cleanser RxNorm: 514841 Apply 1 Application Topical QD apply to face, wash rinse and dry once daily (may change to QOD if drying) 08/19/19 22 022 Inactive (%covered by insurance) #60ml refill 11 dx: acne benzoyl peroxide 10 % topical cleanser RxNorm: 842244 Apply 1 Application Topical QD apply to face, wash rinse and dry once daily (may change to QOD if drying) 08/19/19 22 022 Inactive (%covered by insurance) #60ml refill 11 dx: acne Lyrica 50 mg capsule RxNorm: 710120 Take 1 Capsule(s) Oral QAM every morning Take 1 capsule by mouth once daily 08/19/19 22 022 Inactive benzoyl peroxide 10 % topical cleanser RxNorm: 701875 Apply 1 Application Topical QD apply to face, wash rinse and dry once daily (may change to QOD if drying) 08/19/19 22 022 Inactive (%covered by insurance) #60ml refill 11 dx: acne Lyrica 100 mg capsule RxNorm: 669162 Take 1 Capsule(s) Oral QHS every night at bedtime Take 1 capsule by mouth once daily at bedtime 08/19/19 22 022 Inactive Lyrica 100 mg capsule RxNorm: 180186 Take 1 Capsule(s) Oral QHS every night at bedtime Take 1 capsule by mouth once daily at bedtime 08/16/19 22 022 Inactive Lyrica 50 mg capsule RxNorm: 501267 Take 1 Capsule(s) Oral QAM every morning Take 1 capsule by mouth once daily 08/16/19 022 Inactive Levemir FlexTouch U-100 Insulin 100 unit/mL (3 mL) subcutaneous pen RxNorm: 988506 Inject 86 Unit(s) Subcutaneous BID 08/05/19 22 022 Inactive d/c 83units BID Lyrica 100 mg capsule RxNorm: 800256 Take 1 Capsule(s) Oral QHS every night at bedtime Take 1 capsule by mouth once daily at bedtime 07/14/19 22 022 Inactive Lyrica 50 mg capsule RxNorm: 843655 Take 1 Capsule(s) Oral QAM every morning Take 1 capsule by mouth once daily 07/14/19 Inactive Levemir FlexTouch U-100 Insulin 100 unit/mL (3 mL) subcutaneous pen RxNorm: 152626 Inject 83 Unit(s) Subcutaneous BID 07/08/19 22 [...] 4 times daily and as needed. Dx:E1106/05/19 Inactive ok to substitute with any covered alternative meter Novofine Autocover 30 gauge x 1/3 needle RxNorm: Use 1 Miscellaneous UD as directed Use 1 needle as directed to administer insulin. Dx:. 06/05/19 Inactive ok to substitute with any covered alternative pen needle Novofine Autocover 30 gauge x 1/3 needle RxNorm: Use 1 Miscellaneous UD as directed Use 1 needle as directed to administer insulin 5 times a day Dx:. 06/05/19 Inactive ok to substitute with any covered alternative pen needle Accu-Chek Guide test strips RxNorm: Use 1 Test Strip QID Use 1 test strip to monitor blood glucose 4 times daily and as needed. Dx:. 06/05/19 Inactive ok to substitute with any covered alternative test strip Accu-Chek Guide test strips RxNorm: Use 1 Test Strip QID Use 1 test strip to monitor blood glucose 4 times daily and as needed. Dx:. 06/05/19 Inactive ok to substitute with any covered alternative test strip isosorbide mononitrate ER 30 mg tablet,extended release 24 hr RxNorm: 845231 Take 1 Tablet(s) Oral QD 05/05/20 No Stop Date Active hydralazine 50 mg tablet RxNorm: 543741 Take 1 Tablet(s) Oral QID 05/05/20 Inactive venlafaxine ER 225 mg tablet,extended release 24 hr RxNorm: 394005 Take 1 Tablet(s) Oral QD 05/05/20 Inactive venlafaxine ER 225 mg tablet,extended release 24 hr RxNorm: 241091 Take 1 Tablet(s) Oral QD 05/05/20 022 Inactive hydralazine 50 mg tablet RxNorm: 948157 Take 1 Tablet(s) Oral QID 05/05/20 Inactive aspirin 81 mg tablet,delayed release RxNorm: 322644 Take 1 Tablet(s) Oral QD 03/31/20 Inactive Zetia 10 mg tablet RxNorm: 433716 Take 1 Tablet(s) Oral QD 03/31/20 Inactive Vitamin D2 1,250 mcg (50,000 unit) capsule RxNorm: 8680845 Take 1 Capsule(s) Oral QW once a week x 12 weeks 03/31/20 Inactive Vitamin D2 1,250 mcg (50,000 unit) capsule RxNorm: 1149431 Take 1 Capsule(s) Oral QW once a week 03/31/20 Inactive Zetia 10 mg tablet RxNorm: 999931 Take 1 Tablet(s) Oral QD 03/31/20 Inactive hydralazine 25 mg tablet RxNorm: 721321 Take 1 Tablet(s) Oral QID 03/31/20 021 Inactive hydralazine 25 mg tablet RxNorm: 585287 Take 1 Tablet(s) Oral QID 03/31/20 021 Inactive hydralazine 10 mg tablet RxNorm: 726994 Take 1 Tablet(s) Oral QID 03/03/20 Inactive cephalexin 500 mg tablet RxNorm: 385853 Take 1 Tablet(s) Oral QID 02/27/20 021 Inactive cephalexin 500 mg tablet RxNorm: 084194 Take 1 Tablet(s) Oral QID 10/13/20 21 10/13/2 021 Inactive lisinopril 40 mg tablet RxNorm: 645503 Take 1 Tablet(s) Oral QD 02/11/20 21 023 Inactive Eliquis 5 mg tablet RxNorm: 4378568 Take 1 Tablet(s) Oral BID 01/05/20 21 022 Inactive Eliquis 5 mg tablet RxNorm: 1653557 Take 2 Tablet(s) Oral QD 01/01/20 21 021 Inactive Lyrica 50 mg capsule RxNorm: 398009 Take 1 Capsule(s) Oral QAM every morning 12/24/19 21 021 Inactive Lyrica 100 mg capsule RxNorm: 737957 Take 1 Capsule(s) Oral QHS every night at bedtime 12/24/19 021 Inactive clotrimazole 1 % topical cream RxNorm: 081276 Apply to right foot and toes Topical BID 12/04/19 21 023 Inactive metoprolol succinate ER 200 mg tablet,extended release 24 hr RxNorm: 792428 Take 1 Tablet(s) Oral QD 12/04/19 023 Inactive ciprofloxacin 500 mg tablet RxNorm: 134593 Take 1 Tablet(s) Oral QD 11/30/19 21 021 Inactive DX ofloxacin otic drops Accu-Chek Guide test strips RxNorm: USE 1 TO CHECK GLUCOSE 4 TIMES DAILY AND NEEDED 11/15/19 21 023 Inactive Blood Glucose Test strips RxNorm: Use 1 Test Strip QID at PRN 11/05/19 21 023 Inactive E11.42 lisinopril 30 mg tablet RxNorm: 614531 Take 1 Tablet(s) Oral QD 10/30/19 021 Inactive lisinopril 20 mg tablet RxNorm: 443916 Take 1 Tablet(s) Oral QD 10/23/19 21 021 Inactive lisinopril 20 mg tablet RxNorm: 400319 Take 1 Tablet(s) Oral QD 10/23/19 21 021 Inactive lisinopril 10 mg tablet RxNorm: 326936 Take 1 Tablet(s) Oral QD 10/02/19 21 06/07/2 021 Inactive icosapent ethyl 1 gram capsule RxNorm: 5233918 Take 2 Capsule(s) (2 gm) Oral BID with meals 09/12/19 Inactive Okay to dispense one 2gm tab if you have that available. icosapent ethyl 1 gram capsule RxNorm: 3768051 Take 2 Capsule(s) Oral BID 09/12/19 Inactive Okay to dispense one 2gm tab if you have that available. amlodipine 10 mg tablet RxNorm: 730226 Take 1 Tablet(s) Oral QD 09/04/19 Inactive aspirin 81 mg tablet,delayed release RxNorm: 038279 Take 1 Tablet(s) Oral QD 09/04/19 Inactive Levemir FlexTouch U-100 Insulin 100 unit/mL (3 mL) subcutaneous pen RxNorm: 561530 Inject 150 Unit(s) Subcutaneous BID 09/04/19 Inactive venlafaxine ER 150 mg tablet,extended release 24 hr RxNorm: 321733 Take 1 Tablet(s) Oral QD 09/04/19 Inactive clotrimazole-betame thasone 1 %-0.05 % topical cream RxNorm: 737164 Apply to rash on red area on left abdomen/chest Topical BID 08/10/19 Inactive amlodipine 5 mg tablet RxNorm: 667412 Take 1 Tablet(s) Oral QD 07/31/19 Inactive cephalexin 500 mg tablet RxNorm: 198109 Take 1 Tablet(s) Oral BID BID - Twice Daily 07/31/19 021 Inactive Start 08/01/20 pantoprazole 40 mg tablet,delayed release RxNorm: 573113 Take 1 Tablet(s) Oral QAM every morning 07/08/19 Inactive senna 8.6 mg tablet RxNorm: 689204 Take 1 Tablet(s) Oral QD 07/08/19 022 Inactive pravastatin 80 mg tablet RxNorm: 098584 Take 1 Tablet(s) Oral QHS every night at bedtime 07/08/19 022 Inactive carbamazepine 200 mg tablet RxNorm: 815169 Take 1 Tablet(s) Oral BID 07/08/19 Inactive torsemide 20 mg tablet RxNorm: 717827 Take 1 Tablet(s) Oral QD 07/08/19 023 Inactive clopidogrel 75 mg tablet RxNorm: 438482 Take 1 Tablet(s) Oral QD 07/08/19 021 Inactive Blood Glucose Test strips RxNorm: Use 1 Test Strip QID at PRN 07/08/19 Inactive E11.42 Novolog Flexpen U-100 Insulin aspart 100 unit/mL (3 mL) subcutaneous RxNorm: 6695067 Administer per sliding scale Milliliter(s) Subcutaneous TID 151-200: 10 u; 201-250: 20 u; 251-300: 30 u; 301-350: 40 u; 351-400: 50 u. 07/08/19 Inactive lisinopril 5 mg tablet RxNorm: 894667 Take 1 Tablet(s) Oral QD 07/08/19 Inactive Novolog Flexpen U-100 Insulin aspart 100 unit/mL (3 mL) subcutaneous RxNorm: 6099584 Inject 85 Unit(s) Subcutaneous TID 07/08/19 Inactive clotrimazole 1 % topical cream RxNorm: 974125 Apply to bilateral groin areas Topical BID 07/08/19 Inactive metoprolol succinate ER 200 mg tablet,extended release 24 hr RxNorm: 964729 Take 1 Tablet(s) Oral QD 07/08/19 021 Inactive Vitamin D3 25 mcg (1,000 unit) tablet RxNorm: 451126 Take 1 Tablet(s) Oral QD 07/08/19 021 Inactive isosorbide dinitrate 30 mg tablet RxNorm: 974221 Take 1 Tablet(s) Oral QD 07/08/19 21 Inactive Levemir FlexTouch U-100 Insulin 100 unit/mL (3 mL) subcutaneous pen RxNorm: 591043 Inject 140 Unit(s) Subcutaneous BID 07/08/19 021 Inactive venlafaxine 75 mg tablet RxNorm: 152174 Take 1 Tablet(s) Oral QD 07/08/19 21 Inactive acetaminophen 500 mg tablet RxNorm: 948599 Take 1 Tablet(s) Oral TID as needed for headache 06/18/19 21 021 Inactive acetaminophen 500 mg tablet RxNorm: 331689 Take 1 Tablet(s) Oral TID as needed for headache 06/18/19 21 021 Inactive Lyrica 100 mg capsule RxNorm: 231335 Take 1 Capsule(s) Oral QHS every night at bedtime 06/11/19 21 021 Inactive Lyrica 50 mg capsule RxNorm: 047712 Take 1 Capsule(s) Oral QAM every morning 06/10/19 21 021 Inactive hydrocortisone 2.5 % topical cream RxNorm: 491013 Apply to bilateral groin creases Topical BID 05/15/20 20 021 Inactive clotrimazole 1 % topical cream RxNorm: 719553 Apply to bilateral groin areas Topical BID 05/15/20 20 021 Inactive Lyrica 50 mg capsule RxNorm: 125999 Take 1 Capsule(s) Oral QAM every morning 05/14/20 20 020 Inactive Lyrica 100 mg capsule RxNorm: 815911 Take 1 Capsule(s) Oral QHS every night [...] Inactive Nystop 100,000 unit/gram topical powder RxNorm: 050826 Apply to abd folds, under breasts and L side of groin Topical BID x 14 days, then BID PRN 04/08/20 20 Inactive dx: yeast dermatitis Lyrica 100 mg capsule RxNorm: 286964 Take 1 Capsule(s) Oral QHS every night at bedtime 03/13/20 20 Inactive Lyrica 50 mg capsule RxNorm: 264620 Take 1 Capsule(s) Oral QAM every morning 03/13/20 20 Inactive ketoconazole 2 % shampoo RxNorm: 867876 Apply Topical two times a week with showers 03/11/20 20 Inactive cholecalciferol (vitamin D3) 50 mcg (2,000 unit) tablet RxNorm: 477111 Take 1 Tablet(s) Oral QD 03/11/20 20 Inactive Zetia 10 mg tablet RxNorm: 660895 Take 1 Tablet(s) Oral QD 03/07/20 20 Inactive Zetia 10 mg tablet RxNorm: 441513 Take 1 Tablet(s) Oral QD 03/07/20 20 Inactive Lyrica 50 mg capsule RxNorm: 782654 Take 1 Capsule(s) Oral QAM every morning 02/15/20 20 Inactive Lyrica 100 mg capsule RxNorm: 826755 Take 1 Capsule(s) Oral QHS every night at bedtime 02/15/20 20 Inactive Lyrica 100 mg capsule RxNorm: 066668 Take 1 Capsule(s) Oral QHS every night at bedtime 02/15/20 20 Inactive Lyrica 50 mg capsule RxNorm: 682245 Take 1 Capsule(s) Oral QAM every morning 02/15/20 20 Inactive venlafaxine ER 75 mg capsule,extended release 24 hr RxNorm: 780336 Take 3 Capsule(s) Oral QD 06/12/19 Active polyethylene glycol 3350 17 gram/dose oral powder RxNorm: 458384 Take 17=1 capful Gram(s) Oral BID as needed mix with 4-8oz of liquid 06/12/19 Active Levemir FlexTouch U-100 Insulin 100 unit/mL (3 mL) subcutaneous pen RxNorm: 503576 Inject 80 Unit(s) Subcutaneous BID 07/14/19 23 023 Inactive loperamide 2 mg capsule RxNorm: 592069 Take 1 Capsule(s) Oral QID as needed 06/12/19 22 Active Novolog Flexpen U-100 Insulin aspart 100 unit/mL (3 mL) subcutaneous RxNorm: 4236566 Insert 30 Unit(s) Subcutaneous TID with meals [...] Encounter Performer Location Location Address Codes Date ([address]31) Home or Residence Visit Est Pt - Low Level, 30 mins Diagnosis: Major depression, recurrent[ICD10: F33.9] Diagnosis: High risk medication use[ICD10: Z79.899] Sandra Clark [address] [id number] [place] [address] CPT-4: 97792 06/23/2022 Plan of Care Planned Activity Notes Codes Status Date Referral: [facility] WPtel: [phone] , [address] [id number] [place] Referral Records Received 09/21/2022 Patient Education: Patient M edication Summary Completed 06/23/2022 Patient Education: Influenza Vaccine Completed 06/23/2022 Appointment: Tapan Shirley WPtel: [address] [facility] [id number] F/U 02/10/2022 Referral: [facility] WPtel: [address] [id number] [place] Referral Completed 05/28/2021 Referral: General Cardiology Referral Complet ed 01/03/2021 Referral: General Psychologist Referral Close d Instructions Comment Date Leonid is a Male being seen living at [facility]. Initial BPS visit 01/2020. PMHx including DMII, CAD w/ 5 stents, Depression, Seizure Disorder and CKD stage 3. He moved into [facility] in 12/2019 but after a hospitalization 05/2021 he moved to the [facility] to have closer nursing attention. Sister Jyotsna involved in his care cell# [phone] Guardian: Don (tapan met in person 09/01/21), now has Lexii (same group as don)Lab Schedule: Mar-* 10/06/2022 High risk medication use Currently taking antipsychotic medications for depression. Monitor for sedation and falls. Screening for movement issues/concerns every visit. No adverse effects noted unless noted above. Will review medications at every visit and attempt to reduce medications upon future assessment. Benefits currently outweigh the risks. Depression No longer interested in psychotherapy. Does not feel needed. Continue Abilify 7.5mg daily, Venlafaxine 225mg daily. . 06/23/2022
--- OUTSIDE RECORDS SUMMARY | 2022-07-01 19:00 | XMS_ITS | CCD ---
Author Name Alissa Zheng MD her Address [address] [place] [address] [address] [place] [address] Phone Organization [facility] Phone Care Team Providers Care Compliance Reviewer Name Role Phone Rosalina Shirley PA-C Primary Care Provider Unavailabl e Rosalina Shirley PA-C Chronic Care Management Unavaila ble Summary Purpose DataExchange Insurance Providers Payer name Policy type / Coverage type Covered democrat ID Effective Begin Date Effective End Date [place] Part B [id number] Unknown Unknown Medicaid ID Medicare Part B [id number] Unknown Unknown Family history Sister Brittany Suggs [...] Jail 09/03/[address]: 5505124 Non-Smoker / No History of Smoking 09/02/[address]: 889785385 No Alcohol Consum ption 09/02/2020 Allergies, Adverse Reactions, Alerts Substance Reaction Codes Entered Date Inactivated Date Status LISINOPRIL RxNorm: 58948 02/12/2020 No Inactive Da te Active Metformin [...] 05/01/2022 Active Coronary artery disease invo lving [place] coronary artery of [place] heart, angina presence unspecified ICD-10: I25.10 ICD-9: [...] Fill Instructions Diflucan 150 mg tablet RxNorm: 572602 Take 1 Tablet(s) Oral QD repeat on day 3 and 6 06/30/19 23 023 Inactive aripiprazole 15 mg tablet RxNorm: 448858 05/18 TAB (7.5MG) ORALLY DAILY (DX:MAJOR DEPRESSIVE DISORDER) 06/05/19 23 023 Inactive pregabalin 100 mg capsule RxNorm: 824337 1 Capsule(s) Oral QAM every morning 06/02/19 23 023 Inactive Banophen 50 mg capsule RxNorm: 6314538 Take 1 Capsule(s) Oral Q6H every 6 hours as needed 05/19/19 No Stop Date Active Novolog Flexpen U-100 Insulin aspart 100 unit/mL (3 mL) subcutaneous RxNorm: 8022244 Inject 10 Unit(s) Subcutaneous QHS every night at bedtime with nighttime snack 04/08/20 Inactive Novolog Flexpen U-100 Insulin aspart 100 unit/mL (3 mL) subcutaneous RxNorm: 9653440 Inject 42 Unit(s) Subcutaneous TID in addition to sliding scale 04/08/20 Inactive d/c 36u albuterol sulfate HFA 90 mcg/actuation aerosol inhaler RxNorm: 9820017 Take 2 Puff(s) Inhalation Q4H every four hours as needed as needed for SOB, cough, or wheezing 04/07/20 030 Active Banophen 50 mg capsule RxNorm: 7939920 Take 1 Capsule(s) Oral Q6H every 6 hours as needed 04/06/20 023 Inactive diphenhydramine 50 mg tablet RxNorm: 8819180 Take 1 Tablet(s) Oral Q6H every 6 hours as needed 04/06/20 022 Inactive diphenhydramine 50 mg tablet RxNorm: 2111444 1 Tablet(s) Oral Q6H every 6 hours as needed 04/06/20 022 Inactive Abilify 15 mg tablet RxNorm: 645937 1/2 Tablet(s) Oral QD 03/10/20 023 Inactive Shingrix (PF) 50 mcg/0.5 mL intramuscular suspension, kit RxNorm: 9202124 Administer 1/2 Milliliter(s) Intramuscular QD one time shingrix step 2 ( step 1 given 11/04/21) WITH needle - Nursing please administer upon arrival and once administered 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, project hire, 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, and lot# so we can update [facility] 02/18/20 22 022 Inactive dispense with needle Shingrix (PF) 50 mcg/0.5 mL intramuscular suspension, kit RxNorm: 2834129 Administer 1/2 Milliliter(s) Intramuscular QD one time shingrix step 2 ( step 1 given 11/04/21) WITH needle - Nursing please administer upon arrival and once administered 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, project hire, 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, and lot# so we can update [facility] 02/18/20 22 022 Inactive dispense with needle acetaminophen 500 mg tablet RxNorm: 457673 Take 1 Tablet(s) Oral TID 01/08/20 22 023 Active d/c PRN order polyethylene glycol 3350 17 gram/dose oral powder RxNorm: 898612 Take 17=1 capful Gram(s) Oral QD mix with 4-8oz of liquid 01/08/20 023 Active take this in addition to BID prn order Lyrica 100 mg capsule RxNorm: 391088 Take 1 Capsule(s) Oral QAM every morning 01/08/20 22 022 Inactive d/c 50mg dose Lyrica 150 mg capsule RxNorm: 598095 Take 1 Capsule(s) Oral QHS every night at bedtime 01/08/20 22 023 Inactive d/c 100mg dose Abilify 5 mg tablet RxNorm: 524586 Take 1 Tablet(s) Oral QD take 1 tab po QD #30 refill 5 dx: MDD 12/12/19 22 022 Inactive Abilify 5 mg tablet RxNorm: 168555 Take 1 Tablet(s) Oral QD take 1 tab po QD #30 refill 5 dx: MDD 12/12/19 22 022 Inactive chlorthalidone 25 mg tablet RxNorm: 829244 Take 1 Tablet(s) Oral QAM every morning 12/10/19 22 023 Active Novolog Flexpen U-100 Insulin aspart 100 unit/mL (3 mL) subcutaneous RxNorm: 9062986 Inject 42 Unit(s) Subcutaneous TID in addition to sliding scale 12/10/19 22 022 Inactive d/c 36u pregabalin 50 mg capsule RxNorm: 754421 Take 1 Capsule(s) Oral QAM every morning 11/12/19 22 022 Inactive tetanus-diphtheria toxoids-Td 2 Lf unit-2 Lf unit/0.5 mL IM suspension RxNorm: 139 Take 0.5 Miscellaneous Intramuscular 11/12/19 22 022 Inactive need tdap - nursing to administer upon arrival pregabalin 50 mg capsule RxNorm: 315572 Take 1 Capsule(s) Oral QAM every morning 10/16/19 22 022 Inactive pregabalin 50 mg capsule RxNorm: 289803 Take 1 Capsule(s) Oral QAM every morning 10/16/19 22 022 Inactive pregabalin 50 mg capsule RxNorm: 155588 1 Capsule(s) Oral QAM every morning 10/15/19 22 022 Inactive Shingrix (PF) 50 mcg/0.5 mL intramuscular suspension, kit RxNorm: 3400568 Administer 1/2 Milliliter(s) Intramuscular one time Nursing please administer upon arrival and once administered 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, project hire, 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 10/09/19 22 022 Inactive shingrix step 1 Shingrix (PF) 50 mcg/0.5 mL intramuscular suspension, kit RxNorm: 8784573 Administer 1/2 Milliliter(s) Intramuscular one time Nursing please administer upon arrival and once administered 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, project hire, 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 10/09/19 22 022 Inactive shingrix step 1 cholecalciferol (vitamin D3) 1,250 mcg (50,000 unit) capsule RxNorm: 642309 Take 1 Capsule(s) Oral QW once a [...] aspart 100 unit/mL (3 mL) subcutaneous RxNorm: 5363854 Inject 10 Unit(s) Subcutaneous QHS every night at bedtime with nighttime snack 10/08/19 22 022 Inactive Shingrix (PF) 50 mcg/0.5 mL intramuscular suspension, kit RxNorm: 8242970 ADMINISTER 2-DOSE SERIES PER CDC GUIDELINES 10/08/19 22 Active Shingrix (PF) 50 mcg/0.5 mL intramuscular suspension, kit RxNorm: 9775930 ADMINISTER 2-DOSE SERIES PER CDC GUIDELINES 10/08/19 22 Inactive Novolog Flexpen U-100 Insulin aspart 100 unit/mL (3 mL) subcutaneous RxNorm: 0880446 Inject 36 Unit(s) Subcutaneous TID in addition to sliding scale 10/08/19 Inactive Novofine Autocover 30 gauge x 1/3 needle RxNorm: Use 1 Miscellaneous UD as directed Use 1 needle as directed to administer insulin 5 times a day Dx:E11.42. 10/03/19 Inactive ok to substitute with any covered alternative pen needle benzoyl peroxide 10 % topical cleanser RxNorm: 331185 Apply 1 Application Topical QD apply to face, wash rinse and dry once daily (may change to QOD if drying) 08/19/19 022 Inactive (%covered by insurance) #60ml refill 11 dx: acne benzoyl peroxide 10 % topical cleanser RxNorm: 870132 Apply 1 Application Topical QD apply to face, wash rinse and dry once daily (may change to QOD if drying) 08/19/19 022 Inactive (%covered by insurance) #60ml refill 11 dx: acne benzoyl peroxide 10 % topical cleanser RxNorm: 424859 Apply 1 Application Topical QD apply to face, wash rinse and dry once daily (may change to QOD if drying) 08/19/19 022 Inactive (%covered by insurance) #60ml refill 11 dx: acne Lyrica 50 mg capsule RxNorm: 389930 Take 1 Capsule(s) Oral QAM every morning Take 1 capsule by mouth once daily 08/19/19 22 Inactive benzoyl peroxide 10 % topical cleanser RxNorm: 172902 Apply 1 Application Topical QD apply to face, wash rinse and dry once daily (may change to QOD if drying) 08/19/19 22 022 Inactive (%covered by insurance) #60ml refill 11 dx: acne Lyrica 100 mg capsule RxNorm: 176789 Take 1 Capsule(s) Oral QHS every night at bedtime Take 1 capsule by mouth once daily at bedtime 08/19/19 22 022 Inactive Lyrica 100 mg capsule RxNorm: 402927 Take 1 Capsule(s) Oral QHS every night at bedtime Take 1 capsule by mouth once daily at bedtime 08/16/19 22 022 Inactive Lyrica 50 mg capsule RxNorm: 677731 Take 1 Capsule(s) Oral QAM every morning Take 1 capsule by mouth once daily 08/16/19 22 022 Inactive Levemir FlexTouch U-100 Insulin 100 unit/mL (3 mL) subcutaneous pen RxNorm: 458353 Inject 86 Unit(s) Subcutaneous BID 08/05/19 22 022 Inactive d/c 83units BID Lyrica 100 mg capsule RxNorm: 634831 Take 1 Capsule(s) Oral QHS every night at bedtime Take 1 capsule by mouth once daily at bedtime 07/14/19 22 022 Inactive Lyrica 50 mg capsule RxNorm: 718434 Take 1 Capsule(s) Oral QAM every morning Take 1 capsule by mouth once daily 07/14/19 22 022 Inactive Levemir FlexTouch U-100 Insulin 100 unit/mL (3 mL) subcutaneous pen RxNorm: 964941 Inject 83 Unit(s) Subcutaneous BID 07/08/19 22 [...] 30 mg tablet,extended release 24 hr RxNorm: 926859 Take 1 Tablet(s) Oral QD 05/05/20 21 No Stop Date Active hydralazine 50 mg tablet RxNorm: 218140 Take 1 Tablet(s) Oral QID 05/05/20 21 022 Inactive venlafaxine ER 225 mg tablet,extended release 24 hr RxNorm: 112218 Take 1 Tablet(s) Oral QD 05/05/20 21 Inactive venlafaxine ER 225 mg tablet,extended release 24 hr RxNorm: 073537 Take 1 Tablet(s) Oral QD 05/05/20 21 022 Inactive hydralazine 50 mg tablet RxNorm: 958681 Take 1 Tablet(s) Oral QID 05/05/20 21 Inactive aspirin 81 mg tablet,delayed release RxNorm: 452313 Take 1 Tablet(s) Oral QD 03/31/20 21 022 Inactive Zetia 10 mg tablet RxNorm: 906734 Take 1 Tablet(s) Oral QD 03/31/20 21 Inactive Vitamin D2 1,250 mcg (50,000 unit) capsule RxNorm: 0513468 Take 1 Capsule(s) Oral QW once a week x 12 weeks 03/31/20 022 Inactive Vitamin D2 1,250 mcg (50,000 unit) capsule RxNorm: 8267322 Take 1 Capsule(s) Oral QW once a week 03/31/20 Inactive Zetia 10 mg tablet RxNorm: 421212 Take 1 Tablet(s) Oral QD 03/31/20 021 Inactive hydralazine 25 mg tablet RxNorm: 340392 Take 1 Tablet(s) Oral QID 03/31/20 021 Inactive hydralazine 25 mg tablet RxNorm: 675763 Take 1 Tablet(s) Oral QID 03/31/20 021 Inactive hydralazine 10 mg tablet RxNorm: 324543 Take 1 Tablet(s) Oral QID 03/03/20 021 Inactive cephalexin 500 mg tablet RxNorm: 883138 Take 1 Tablet(s) Oral QID 02/27/20 021 Inactive cephalexin 500 mg tablet RxNorm: 835007 Take 1 Tablet(s) Oral QID 02/27/20 021 Inactive lisinopril 40 mg tablet RxNorm: 116712 Take 1 Tablet(s) Oral QD 02/11/20 21 023 Inactive Eliquis 5 mg tablet RxNorm: 1316682 Take 1 Tablet(s) Oral BID 01/05/20 21 022 Inactive Eliquis 5 mg tablet RxNorm: 2444296 Take 2 Tablet(s) Oral QD 01/01/20 21 021 Inactive Lyrica 50 mg capsule RxNorm: 279467 Take 1 Capsule(s) Oral QAM every morning 12/24/19 21 021 Inactive Lyrica 100 mg capsule RxNorm: 349180 Take 1 Capsule(s) Oral QHS every night at bedtime 12/24/19 21 021 Inactive clotrimazole 1 % topical cream RxNorm: 843004 Apply to right foot and toes Topical BID 12/04/19 21 023 Inactive metoprolol succinate ER 200 mg tablet,extended release 24 hr RxNorm: 908939 Take 1 Tablet(s) Oral QD 12/04/19 21 023 Inactive ciprofloxacin 500 mg tablet RxNorm: 666816 Take 1 Tablet(s) Oral QD 11/30/19 21 021 Inactive DX ofloxacin otic drops Accu-Chek Guide test strips RxNorm: USE 1 TO CHECK GLUCOSE 4 TIMES DAILY AND NEEDED 11/15/19 21 023 Inactive Blood Glucose Test strips RxNorm: Use 1 Test Strip QID at PRN 11/05/19 21 023 Inactive E11.42 lisinopril 30 mg tablet RxNorm: 783336 Take 1 Tablet(s) Oral QD 10/30/19 021 Inactive lisinopril 20 mg tablet RxNorm: 470457 Take 1 Tablet(s) Oral QD 10/23/19 021 Inactive lisinopril 20 mg tablet RxNorm: 643587 Take 1 Tablet(s) Oral QD 10/23/19 021 Inactive lisinopril 10 mg tablet RxNorm: 591610 Take 1 Tablet(s) Oral QD 10/02/19 021 Inactive icosapent ethyl 1 gram capsule RxNorm: 3504510 Take 2 Capsule(s) (2 gm) Oral BID with meals 09/12/19 022 Inactive Okay to dispense one 2gm tab if you have that available. icosapent ethyl 1 gram capsule RxNorm: 4973663 Take 2 Capsule(s) Oral BID 09/12/19 21 021 Inactive Okay to dispense one 2gm tab if you have that available. amlodipine 10 mg tablet RxNorm: 714868 Take 1 Tablet(s) Oral QD 09/04/19 022 Inactive aspirin 81 mg tablet,delayed release RxNorm: 821885 Take 1 Tablet(s) Oral QD 09/04/19 21 021 Inactive Levemir FlexTouch U-100 Insulin 100 unit/mL (3 mL) subcutaneous pen RxNorm: 544013 Inject 150 Unit(s) Subcutaneous BID 09/04/19 022 Inactive venlafaxine ER 150 mg tablet,extended release 24 hr RxNorm: 213161 Take 1 Tablet(s) Oral QD 09/04/19 Inactive clotrimazole-betame thasone 1 %-0.05 % topical cream RxNorm: 173740 Apply to rash on red area on left abdomen/chest Topical BID 08/10/19 Inactive amlodipine 5 mg tablet RxNorm: 813185 Take 1 Tablet(s) Oral QD 07/31/19 Inactive cephalexin 500 mg tablet RxNorm: 520046 Take 1 Tablet(s) Oral BID BID - Twice Daily 07/31/19 Inactive Start 08/01/20 pantoprazole 40 mg tablet,delayed release RxNorm: 114083 Take 1 Tablet(s) Oral QAM every morning 07/08/19 022 Inactive senna 8.6 mg tablet RxNorm: 660726 Take 1 Tablet(s) Oral QD 07/08/19 022 Inactive pravastatin 80 mg tablet RxNorm: 567191 Take 1 Tablet(s) Oral QHS every night at bedtime 07/08/19 022 Inactive carbamazepine 200 mg tablet RxNorm: 086580 Take 1 Tablet(s) Oral BID 07/08/19 022 Inactive torsemide 20 mg tablet RxNorm: 496160 Take 1 Tablet(s) Oral QD 07/08/19 023 Inactive clopidogrel 75 mg tablet RxNorm: 988733 Take 1 Tablet(s) Oral QD 07/08/19 021 Inactive Blood Glucose Test strips RxNorm: Use 1 Test Strip QID at PRN 07/08/19 021 Inactive E11.42 Novolog Flexpen U-100 Insulin aspart 100 unit/mL (3 mL) subcutaneous RxNorm: 8462560 Administer per sliding scale Milliliter(s) Subcutaneous TID 151-200: 10 u; 201-250: 20 u; 251-300: 30 u; 301-350: 40 u; 351-400: 50 u. 07/08/19 21 01/26/2 022 Inactive lisinopril 5 mg tablet RxNorm: 256871 Take 1 Tablet(s) Oral QD 07/08/19 021 Inactive Novolog Flexpen U-100 Insulin aspart 100 unit/mL (3 mL) subcutaneous RxNorm: 5715158 Inject 85 Unit(s) Subcutaneous TID 07/08/19 022 Inactive clotrimazole 1 % topical cream RxNorm: 195553 Apply to bilateral groin areas Topical BID 07/08/19 022 Inactive metoprolol succinate ER 200 mg tablet,extended release 24 hr RxNorm: 448075 Take 1 Tablet(s) Oral QD 07/08/19 021 Inactive Vitamin D3 25 mcg (1,000 unit) tablet RxNorm: 950573 Take 1 Tablet(s) Oral QD 07/08/19 021 Inactive isosorbide dinitrate 30 mg tablet RxNorm: 719445 Take 1 Tablet(s) Oral QD 07/08/19 021 Inactive Levemir FlexTouch U-100 Insulin 100 unit/mL (3 mL) subcutaneous pen RxNorm: 763595 Inject 140 Unit(s) Subcutaneous BID 07/08/19 021 Inactive venlafaxine 75 mg tablet RxNorm: 563269 Take 1 Tablet(s) Oral QD 07/08/19 021 Inactive acetaminophen 500 mg tablet RxNorm: 453191 Take 1 Tablet(s) Oral TID as needed for headache 06/18/19 021 Inactive acetaminophen 500 mg tablet RxNorm: 472848 Take 1 Tablet(s) Oral TID as needed for headache 06/18/19 021 Inactive Lyrica 100 mg capsule RxNorm: 673689 Take 1 Capsule(s) Oral QHS every night at bedtime 06/11/19 Inactive Lyrica 50 mg capsule RxNorm: 975788 Take 1 Capsule(s) Oral QAM every morning 06/10/19 21 021 Inactive hydrocortisone 2.5 % topical cream RxNorm: 304636 Apply to bilateral groin creases Topical BID 05/15/20 20 021 Inactive clotrimazole 1 % topical cream RxNorm: 592159 Apply to bilateral groin areas Topical BID 05/15/20 20 Inactive Lyrica 50 mg capsule RxNorm: 928919 Take 1 Capsule(s) Oral QAM every morning 05/14/20 20 Inactive Lyrica 100 mg capsule RxNorm: 296668 Take 1 Capsule(s) Oral QHS every night [...] Inactive Nystop 100,000 unit/gram topical powder RxNorm: 449406 Apply to abd folds, under breasts and L side of groin Topical BID x 14 days, then BID PRN 04/08/20 20 021 Inactive dx: yeast dermatitis Lyrica 100 mg capsule RxNorm: 079022 Take 1 Capsule(s) Oral QHS every night at bedtime 03/13/20 20 Inactive Lyrica 50 mg capsule RxNorm: 144269 Take 1 Capsule(s) Oral QAM every morning 03/13/20 20 Inactive ketoconazole 2 % shampoo RxNorm: 580526 Apply Topical two times a week with showers 03/11/20 20 Inactive cholecalciferol (vitamin D3) 50 mcg (2,000 unit) tablet RxNorm: 125203 Take 1 Tablet(s) Oral QD 10/26/20 20 11/14/2 021 Inactive Zetia 10 mg tablet RxNorm: 811598 Take 1 Tablet(s) Oral QD 03/07/20 021 Inactive Zetia 10 mg tablet RxNorm: 584289 Take 1 Tablet(s) Oral QD 03/07/20 Inactive Lyrica 50 mg capsule RxNorm: 579353 Take 1 Capsule(s) Oral QAM every morning 02/15/20 Inactive Lyrica 100 mg capsule RxNorm: 069027 Take 1 Capsule(s) Oral QHS every night at bedtime 02/15/20 Inactive Lyrica 100 mg capsule RxNorm: 487758 Take 1 Capsule(s) Oral QHS every night at bedtime 02/15/20 Inactive Lyrica 50 mg capsule RxNorm: 533229 Take 1 Capsule(s) Oral QAM every morning 02/15/20 Inactive venlafaxine ER 75 mg capsule,extended release 24 hr RxNorm: 721863 Take 3 Capsule(s) Oral QD 06/12/19 Active polyethylene glycol 3350 17 gram/dose oral powder RxNorm: 745726 Take 17=1 capful Gram(s) Oral BID as needed mix with 4-8oz of liquid 06/12/19 Active Levemir FlexTouch U-100 Insulin 100 unit/mL (3 mL) subcutaneous pen RxNorm: 711511 Inject 80 Unit(s) Subcutaneous BID 07/14/19 23 023 Inactive loperamide 2 mg capsule RxNorm: 998132 Take 1 Capsule(s) Oral QID as needed 06/12/19 22 Active Novolog Flexpen U-100 Insulin aspart 100 unit/mL (3 mL) subcutaneous RxNorm: 1656293 Insert 30 Unit(s) Subcutaneous TID with meals [...] Encounter Performer Location Location Address Codes Date ([address]58) Home or Residence Visit Est Pt - Moderate Level, 40 mins Diagnosis: Candidiasis, intertrigo[ICD10: B37.2] Diagnosis: Type 2 diabetes mellitus with diabetic polyneuropathy, with long-term current use of insulin[ICD10: E11.42] Diagnosis: Hyperlipidemia associated with type 2 diabetes mellitus[ICD10: E11.69] Diagnosis: Stage 2 chronic 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[ICD10: E11.22] Diagnosis: Onychogryposis[ICD10: L60.2] Andressa Zheng [facility] [place] [facility] [address] [address] [place] [address] CPT-4: 29010 06/09/2022 Plan of Care Planned Activity Notes Codes Status Date Referral: [facility] WPtel: [address] , [address] [id number] [place] Referral Records Received 09/21/2022 Patient Education: Patient M edication Summary Completed 06/09/2022 Patient Education: Influenza Vaccine Completed 06/09/2022 Appointment: Rosalina Shirley WPtel: [address] [place], [place] [id number] F/U 02/10/2022 Referral: [facility] WPtel: [address] [facility] [address] [id number] [place] Referral Completed 05/28/2021 Referral: General Cardiology [...] a hospitalization 05/2021 he moved to the [facility] to have closer nursing attention. Sister Jyotsna involved in his care cell# [phone] Guardian: Don (rosalina met in person 09/01/21), now has Lexii (same group as don)Lab Schedule: * 10/06/2022 Candidiasis, intertrigo will add diflucan in pulse dosing x 3 Onychogryposis toenails trimmed today Diabetes BS irratic, not as high with change in PM dosing . 06/09/2022
--- OUTSIDE RECORDS SUMMARY | 2022-07-17 19:00 | XMS_ITS | CCD ---
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 Medicaid Specialist Name Role Phone Tapan Shilrey PA-C Primary Care Provider Unavailabl e Tapan Shirley PA-C Chronic Care Management Unavaila ble Summary Purpose DataExchange Insurance Providers Payer name Policy type / Coverage type Covered alliance party ID Effective Begin Date Effective End Date [place] [id number] Unknown Unknown [place] [id number] Unknown Unknown Family history Sister Brittany Suggs [...] [facility] 09/03/[address]: 9021105 Non-Smoker / No History of Smoking 09/02/[address]: 505132594 No Alcohol Consum ption 09/02/2020 Allergies, Adverse Reactions, Alerts Substance Reaction Codes Entered Date Inactivated Date Status LISINOPRIL RxNorm: 87060 02/12/2020 No Inactive Da te Active Metformin HCl Unknown 02/12/2020 No Inactive Cristiano e Active Problems Condition Codes Effective Dates Condition St atus Candidiasis, intertrigo ICD-10: B37.2 ICD-9: 112.3 07/14/2022 Active Hyperlipidemia associated wi th type 2 diabetes mellitus ICD-10: E11.69 ICD-9: 250.80 07/14/2022 Active Hypertensive heart disease w ithout heart failure ICD-10: I11.9 ICD-9: 402.90 07/14/2022 Active Pre-op evaluation ICD-10: Z01.818 ICD-9: V72.84 07/14/2022 Active Stage 2 chronic kidney disea se due to type 2 diabetes mellitus ICD-10: E11.22 ICD-9: 250.40 07/14/2022 Active Type 2 diabetes mellitus wit h diabetic polyneuropathy, with long-term current use of insulin ICD-10: E11.42 ICD-9: 250.60 07/14/2022 Active High risk medication use ICD-10: Z79.899 ICD-9: V58.69 06/23/2022 Active Major depression, recurrent ICD-10: F33. 9 ICD-9: 296.30 06/23/2022 Active Onychogryposis ICD-10: L60.2 ICD-9: 703.8 06/09/2022 Active Vitamin D deficiency ICD-10: E55.9 ICD-9: 268.9 05/01/2022 Active Coronary artery disease invo [place]ving [place] coronary artery of [place] heart, angina presence unspecified ICD-10: I25.10 ICD-9: [...] immunization ICD-10: Z23 ICD-9: V03.89 02/10/2022 Resolved [facility]DC (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 insulin ICD-10: Z79.4 02/10 [...] Fill Instructions Lyrica 150 mg capsule RxNorm: 281365 Take 1 Capsule(s) Oral QHS every night at bedtime 07/19/19 23 023 Inactive d/c 100mg dose Diflucan 150 mg tablet RxNorm: 294838 Take 1 Tablet(s) Oral QD repeat on day 3 and 6 07/19/19 23 023 Inactive pregabalin 100 mg capsule RxNorm: 712353 Take 1 Capsule(s) Oral QAM every morning 07/19/19 23 023 Inactive gatifloxacin 0.5 % eye drops RxNorm: 491788 Instill 1 Drop(s) as directed TID Instill 1 drop in to affected eye(s) starting 1 day prior to surgery and continue until gone (do not exceed 4 weeks). 07/13/19 23 023 Inactive carvedilol 25 mg tablet RxNorm: 405792 2 Tablet(s) Oral BID 07/13/19 23 023 Inactive Humulin R Regular U-100 Insulin 100 unit/mL injection solution RxNorm: 381819 85 Unit(s) Injection TID 07/13/19 23 023 Inactive ketorolac 0.5 % eye drops RxNorm: 204816 Instill 1 Drop(s) as directed QID Instill 1 drop into affected eye(s) 4 times daily starting 1 day prior to surgery and continue until gone (do not exceed 4 weeks). 07/13/19 23 023 Inactive Diflucan 150 mg tablet RxNorm: 815382 Take 1 Tablet(s) Oral QD repeat on day 3 and 6 06/30/19 23 023 Inactive Accu-Chek Guide test strips RxNorm: Use 1 Test Strip QID Use 1 test strip to monitor blood glucose 4 times daily and as needed. Dx:E11.42. 06/23/19 23 023 Inactive ok to substitute with any covered alternative test strip dextromethorphan-gu aifenesin 10 mg-100 mg/5 mL oral liquid RxNorm: 978491 Take 10 Milliliter(s) Oral every 4 hours as needed for cough 06/19/19 23 023 Inactive dextromethorphan-gu aifenesin 10 mg-100 mg/5 mL oral liquid RxNorm: 475190 Take 10 Milliliter(s) Oral every 4 hours as needed for cough 06/19/19 23 023 Inactive Lyrica 150 mg capsule RxNorm: 838835 Take 1 Capsule(s) Oral QHS every night at bedtime 06/18/19 23 023 Inactive d/c 100mg dose aripiprazole 15 mg tablet RxNorm: 271889 1/2 TAB (7.5MG) ORALLY DAILY (DX:MAJOR DEPRESSIVE DISORDER) 06/05/19 23 023 Inactive pregabalin 100 mg capsule RxNorm: 359670 1 Capsule(s) Oral QAM every morning 06/02/19 23 023 Inactive Banophen 50 mg capsule RxNorm: 7198623 Take 1 Capsule(s) Oral Q6H every 6 hours as needed 01/03/20 23 No Stop Date Active Novolog Flexpen U-100 Insulin aspart 100 unit/mL (3 mL) subcutaneous RxNorm: 8365716 Inject 10 Unit(s) Subcutaneous QHS every night at bedtime with nighttime snack 04/08/20 Inactive Novolog Flexpen U-100 Insulin aspart 100 unit/mL (3 mL) subcutaneous RxNorm: 4102741 Inject 42 Unit(s) Subcutaneous TID in addition to sliding scale 04/08/20 Inactive d/c 36u albuterol sulfate HFA 90 mcg/actuation aerosol inhaler RxNorm: 4968585 Take 2 Puff(s) Inhalation Q4H every four hours as needed as needed for SOB, cough, or wheezing 04/07/20 030 Active Banophen 50 mg capsule RxNorm: 2310175 Take 1 Capsule(s) Oral Q6H every 6 hours as needed 04/06/20 023 Inactive diphenhydramine 50 mg tablet RxNorm: 7871251 Take 1 Tablet(s) Oral Q6H every 6 hours as needed 04/06/20 022 Inactive diphenhydramine 50 mg tablet RxNorm: 4999067 1 Tablet(s) Oral Q6H every 6 hours as needed 04/06/20 022 Inactive Abilify 15 mg tablet RxNorm: 441391 1/2 Tablet(s) Oral QD 03/10/20 023 Inactive Shingrix (PF) 50 mcg/0.5 mL intramuscular suspension, kit RxNorm: 4258055 Administer 1/2 Milliliter(s) Intramuscular QD one time shingrix step 2 ( step 1 given 11/04/21) WITH needle - Nursing please administer upon arrival and once administered 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, typing checker, 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, and lot# so we can update [facility] 02/18/20 022 Inactive dispense with needle Shingrix (PF) 50 mcg/0.5 mL intramuscular suspension, kit RxNorm: 2624584 Administer 1/2 Milliliter(s) Intramuscular QD one time shingrix step 2 ( step 1 given 11/04/21) WITH needle - Nursing please administer upon arrival and once administered 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, typing checker, 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, and lot# so we can update [facility] 02/18/20 22 Inactive dispense with needle acetaminophen 500 mg tablet RxNorm: 355193 Take 1 Tablet(s) Oral TID 01/08/20 22 023 Active d/c PRN order polyethylene glycol 3350 17 gram/dose oral powder RxNorm: 159453 Take 17=1 capful Gram(s) Oral QD mix with 4-8oz of liquid 01/08/20 22 023 Active take this in addition to BID prn order Lyrica 100 mg capsule RxNorm: 511256 Take 1 Capsule(s) Oral QAM every morning 01/08/20 22 022 Inactive d/c 50mg dose Lyrica 150 mg capsule RxNorm: 576321 Take 1 Capsule(s) Oral QHS every night at bedtime 01/08/20 22 023 Inactive d/c 100mg dose Abilify 5 mg tablet RxNorm: 304655 Take 1 Tablet(s) Oral QD take 1 tab po QD #30 refill 5 dx: MDD 12/12/19 22 022 Inactive Abilify 5 mg tablet RxNorm: 760177 Take 1 Tablet(s) Oral QD take 1 tab po QD #30 refill 5 dx: MDD 12/12/19 22 022 Inactive chlorthalidone 25 mg tablet RxNorm: 687811 Take 1 Tablet(s) Oral QAM every morning 12/10/19 22 023 Active Novolog Flexpen U-100 Insulin aspart 100 unit/mL (3 mL) subcutaneous RxNorm: 3655357 Inject 42 Unit(s) Subcutaneous TID in addition to sliding scale 12/10/19 22 022 Inactive d/c 36u pregabalin 50 mg capsule RxNorm: 548139 Take 1 Capsule(s) Oral QAM every morning 11/12/19 22 022 Inactive tetanus-diphtheria toxoids-Td 2 Lf unit-2 Lf unit/0.5 mL IM suspension RxNorm: 139 Take 0.5 Miscellaneous Intramuscular 11/12/19 22 022 Inactive need tdap - nursing to administer upon arrival pregabalin 50 mg capsule RxNorm: 643491 Take 1 Capsule(s) Oral QAM every morning 10/16/19 22 022 Inactive pregabalin 50 mg capsule RxNorm: 305829 Take 1 Capsule(s) Oral QAM every morning 10/16/19 22 022 Inactive pregabalin 50 mg capsule RxNorm: 530110 1 Capsule(s) Oral QAM every morning 10/15/19 22 022 Inactive Shingrix (PF) 50 mcg/0.5 mL intramuscular suspension, kit RxNorm: 6528200 Administer 1/2 Milliliter(s) Intramuscular one time Nursing please administer upon arrival and once administered 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, typing checker, 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 10/09/19 22 022 Inactive shingrix step 1 Shingrix (PF) 50 mcg/0.5 mL intramuscular suspension, kit RxNorm: 9415591 Administer 1/2 Milliliter(s) Intramuscular one time Nursing please administer upon arrival and once administered 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, typing checker, 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 10/09/19 22 022 Inactive shingrix step 1 cholecalciferol (vitamin D3) 1,250 mcg (50,000 unit) capsule RxNorm: 945065 Take 1 Capsule(s) Oral QW once a [...] aspart 100 unit/mL (3 mL) subcutaneous RxNorm: 3052184 Inject 10 Unit(s) Subcutaneous QHS every night at bedtime with nighttime snack 10/08/19 22 Inactive Shingrix (PF) 50 mcg/0.5 mL intramuscular suspension, kit RxNorm: 7187117 ADMINISTER 2-DOSE SERIES PER CDC GUIDELINES 10/08/19 22 Active Shingrix (PF) 50 mcg/0.5 mL intramuscular suspension, kit RxNorm: 4565937 ADMINISTER 2-DOSE SERIES PER CDC GUIDELINES 10/08/19 22 Inactive Novolog Flexpen U-100 Insulin aspart 100 unit/mL (3 mL) subcutaneous RxNorm: 2243361 Inject 36 Unit(s) Subcutaneous TID in addition to sliding scale 10/08/19 Inactive Novofine Autocover 30 gauge x 1/3 needle RxNorm: Use 1 Miscellaneous UD as directed Use 1 needle as directed to administer insulin 5 times a day Dx:E11.42. 10/03/19 Inactive ok to substitute with any covered alternative pen needle benzoyl peroxide 10 % topical cleanser RxNorm: 945641 Apply 1 Application Topical QD apply to face, wash rinse and dry once daily (may change to QOD if drying) 08/19/19 Inactive (%covered by insurance) #60ml refill 11 dx: acne benzoyl peroxide 10 % topical cleanser RxNorm: 158287 Apply 1 Application Topical QD apply to face, wash rinse and dry once daily (may change to QOD if drying) 08/19/19 22 022 Inactive (%covered by insurance) #60ml refill 11 dx: acne benzoyl peroxide 10 % topical cleanser RxNorm: 350268 Apply 1 Application Topical QD apply to face, wash rinse and dry once daily (may change to QOD if drying) 08/19/19 22 022 Inactive (%covered by insurance) #60ml refill 11 dx: acne Lyrica 50 mg capsule RxNorm: 898184 Take 1 Capsule(s) Oral QAM every morning Take 1 capsule by mouth once daily 08/19/19 22 Inactive benzoyl peroxide 10 % topical cleanser RxNorm: 015926 Apply 1 Application Topical QD apply to face, wash rinse and dry once daily (may change to QOD if drying) 08/19/19 22 Inactive (%covered by insurance) #60ml refill 11 dx: acne Lyrica 100 mg capsule RxNorm: 836555 Take 1 Capsule(s) Oral QHS every night at bedtime Take 1 capsule by mouth once daily at bedtime 08/19/19 22 022 Inactive Lyrica 100 mg capsule RxNorm: 574037 Take 1 Capsule(s) Oral QHS every night at bedtime Take 1 capsule by mouth once daily at bedtime 08/16/19 22 022 Inactive Lyrica 50 mg capsule RxNorm: 117466 Take 1 Capsule(s) Oral QAM every morning Take 1 capsule by mouth once daily 08/16/19 22 022 Inactive Levemir FlexTouch U-100 Insulin 100 unit/mL (3 mL) subcutaneous pen RxNorm: 298992 Inject 86 Unit(s) Subcutaneous BID 08/05/19 22 022 Inactive d/c 83units BID Lyrica 100 mg capsule RxNorm: 581630 Take 1 Capsule(s) Oral QHS every night at bedtime Take 1 capsule by mouth once daily at bedtime 07/14/19 22 022 Inactive Lyrica 50 mg capsule RxNorm: 526901 Take 1 Capsule(s) Oral QAM every morning Take 1 capsule by mouth once daily 07/14/19 22 022 Inactive Levemir FlexTouch U-100 Insulin 100 unit/mL (3 mL) subcutaneous pen RxNorm: 781731 Inject 83 Unit(s) Subcutaneous BID 07/08/19 22 [...] daily and as needed. Dx:E11.42 06/05/19 22 01/20/2 022 Inactive ok to substitute with any covered alternative meter Novofine Autocover 30 gauge x 1/3 needle RxNorm: Use 1 Miscellaneous UD as directed Use 1 needle as directed to administer insulin. Dx:E11.42. 06/05/19 Inactive ok to substitute with any covered alternative pen needle Novofine Autocover 30 gauge x 1/3 needle RxNorm: Use 1 Miscellaneous UD as directed Use 1 needle as directed to administer insulin 5 times a day Dx:E11.42. 06/05/19 Inactive ok to substitute with [...] 30 mg tablet,extended release 24 hr RxNorm: 165054 Take 1 Tablet(s) Oral QD 05/05/20 No Stop Date Active hydralazine 50 mg tablet RxNorm: 419613 Take 1 Tablet(s) Oral QID 05/05/20 21 022 Inactive venlafaxine ER 225 mg tablet,extended release 24 hr RxNorm: 551832 Take 1 Tablet(s) Oral QD 05/05/20 21 021 Inactive venlafaxine ER 225 mg tablet,extended release 24 hr RxNorm: 366504 Take 1 Tablet(s) Oral QD 05/05/20 21 022 Inactive hydralazine 50 mg tablet RxNorm: 123224 Take 1 Tablet(s) Oral QID 05/05/20 21 Inactive aspirin 81 mg tablet,delayed release RxNorm: 682137 Take 1 Tablet(s) Oral QD 03/31/20 21 022 Inactive Zetia 10 mg tablet RxNorm: 579695 Take 1 Tablet(s) Oral QD 03/31/20 022 Inactive Vitamin D2 1,250 mcg (50,000 unit) capsule RxNorm: 8250481 Take 1 Capsule(s) Oral QW once a week x 12 weeks 03/31/20 022 Inactive Vitamin D2 1,250 mcg (50,000 unit) capsule RxNorm: 8780134 Take 1 Capsule(s) Oral QW once a week 03/31/20 Inactive Zetia 10 mg tablet RxNorm: 896695 Take 1 Tablet(s) Oral QD 03/31/20 Inactive hydralazine 25 mg tablet RxNorm: 617566 Take 1 Tablet(s) Oral QID 03/31/20 Inactive hydralazine 25 mg tablet RxNorm: 010466 Take 1 Tablet(s) Oral QID 03/31/20 Inactive hydralazine 10 mg tablet RxNorm: 875119 Take 1 Tablet(s) Oral QID 03/03/20 021 Inactive cephalexin 500 mg tablet RxNorm: 822243 Take 1 Tablet(s) Oral QID 02/27/20 021 Inactive cephalexin 500 mg tablet RxNorm: 336707 Take 1 Tablet(s) Oral QID 02/27/20 Inactive lisinopril 40 mg tablet RxNorm: 762851 Take 1 Tablet(s) Oral QD 02/11/20 023 Inactive Eliquis 5 mg tablet RxNorm: 4304652 Take 1 Tablet(s) Oral BID 01/05/20 022 Inactive Eliquis 5 mg tablet RxNorm: 3581032 Take 2 Tablet(s) Oral QD 01/01/20 021 Inactive Lyrica 50 mg capsule RxNorm: 620475 Take 1 Capsule(s) Oral QAM every morning 12/24/19 021 Inactive Lyrica 100 mg capsule RxNorm: 785951 Take 1 Capsule(s) Oral QHS every night at bedtime 12/24/19 021 Inactive clotrimazole 1 % topical cream RxNorm: 814331 Apply to right foot and toes Topical BID 12/04/19 21 023 Inactive metoprolol succinate ER 200 mg tablet,extended release 24 hr RxNorm: 487010 Take 1 Tablet(s) Oral QD 12/04/19 21 023 Inactive ciprofloxacin 500 mg tablet RxNorm: 689447 Take 1 Tablet(s) Oral QD 11/30/19 21 021 Inactive DX ofloxacin otic drops Accu-Chek Guide test strips RxNorm: USE 1 TO CHECK GLUCOSE 4 TIMES DAILY AND NEEDED 11/15/19 21 023 Inactive Blood Glucose Test strips RxNorm: Use 1 Test Strip QID at PRN 11/05/19 21 023 Inactive E11.42 lisinopril 30 mg tablet RxNorm: 718076 Take 1 Tablet(s) Oral QD 10/30/19 021 Inactive lisinopril 20 mg tablet RxNorm: 793569 Take 1 Tablet(s) Oral QD 10/23/19 021 Inactive lisinopril 20 mg tablet RxNorm: 655584 Take 1 Tablet(s) Oral QD 10/23/19 21 021 Inactive lisinopril 10 mg tablet RxNorm: 036627 Take 1 Tablet(s) Oral QD 10/02/19 021 Inactive icosapent ethyl 1 gram capsule RxNorm: 8776787 Take 2 Capsule(s) (2 gm) Oral BID with meals 09/12/19 022 Inactive Okay to dispense one 2gm tab if you have that available. icosapent ethyl 1 gram capsule RxNorm: 5748308 Take 2 Capsule(s) Oral BID 09/12/19 21 021 Inactive Okay to dispense one 2gm tab if you have that available. amlodipine 10 mg tablet RxNorm: 437216 Take 1 Tablet(s) Oral QD 09/04/19 21 022 Inactive aspirin 81 mg tablet,delayed release RxNorm: 468022 Take 1 Tablet(s) Oral QD 09/04/19 21 021 Inactive Levemir FlexTouch U-100 Insulin 100 unit/mL (3 mL) subcutaneous pen RxNorm: 909797 Inject 150 Unit(s) Subcutaneous BID 09/04/19 21 022 Inactive venlafaxine ER 150 mg tablet,extended release 24 hr RxNorm: 866538 Take 1 Tablet(s) Oral QD 09/04/19 021 Inactive clotrimazole-betame thasone 1 %-0.05 % topical cream RxNorm: 729098 Apply to rash on red area on left abdomen/chest Topical BID 08/10/19 21 Inactive amlodipine 5 mg tablet RxNorm: 020393 Take 1 Tablet(s) Oral QD 07/31/19 Inactive cephalexin 500 mg tablet RxNorm: 074152 Take 1 Tablet(s) Oral BID BID - Twice Daily 07/31/19 021 Inactive Start 08/01/20 pantoprazole 40 mg tablet,delayed release RxNorm: 078485 Take 1 Tablet(s) Oral QAM every morning 07/08/19 022 Inactive senna 8.6 mg tablet RxNorm: 267809 Take 1 Tablet(s) Oral QD 07/08/19 022 Inactive pravastatin 80 mg tablet RxNorm: 297052 Take 1 Tablet(s) Oral QHS every night at bedtime 07/08/19 022 Inactive carbamazepine 200 mg tablet RxNorm: 534481 Take 1 Tablet(s) Oral BID 07/08/19 022 Inactive torsemide 20 mg tablet RxNorm: 706297 Take 1 Tablet(s) Oral QD 07/08/19 21 023 Inactive clopidogrel 75 mg tablet RxNorm: 952668 Take 1 Tablet(s) Oral QD 07/08/19 021 Inactive Blood Glucose Test strips RxNorm: Use 1 Test Strip QID at PRN 07/08/19 21 021 Inactive E11.42 Novolog Flexpen U-100 Insulin aspart 100 unit/mL (3 mL) subcutaneous RxNorm: 6775257 Administer per sliding scale Milliliter(s) Subcutaneous TID 151-200: 10 u; 201-250: 20 u; 251-300: 30 u; 301-350: 40 u; 351-400: 50 u. 07/08/19 Inactive lisinopril 5 mg tablet RxNorm: 278418 Take 1 Tablet(s) Oral QD 07/08/19 21 Inactive Novolog Flexpen U-100 Insulin aspart 100 unit/mL (3 mL) subcutaneous RxNorm: 4632087 Inject 85 Unit(s) Subcutaneous TID 07/08/19 21 Inactive clotrimazole 1 % topical cream RxNorm: 428446 Apply to bilateral groin areas Topical BID 07/08/19 21 Inactive metoprolol succinate ER 200 mg tablet,extended release 24 hr RxNorm: 893700 Take 1 Tablet(s) Oral QD 07/08/19 21 Inactive Vitamin D3 25 mcg (1,000 unit) tablet RxNorm: 041244 Take 1 Tablet(s) Oral QD 07/08/19 Inactive isosorbide dinitrate 30 mg tablet RxNorm: 870049 Take 1 Tablet(s) Oral QD 07/08/19 Inactive Levemir FlexTouch U-100 Insulin 100 unit/mL (3 mL) subcutaneous pen RxNorm: 721485 Inject 140 Unit(s) Subcutaneous BID 07/08/19 Inactive venlafaxine 75 mg tablet RxNorm: 734619 Take 1 Tablet(s) Oral QD 07/08/19 Inactive acetaminophen 500 mg tablet RxNorm: 090829 Take 1 Tablet(s) Oral TID as needed for headache 06/18/19 Inactive acetaminophen 500 mg tablet RxNorm: 715824 Take 1 Tablet(s) Oral TID as needed for headache 06/18/19 Inactive Lyrica 100 mg capsule RxNorm: 932729 Take 1 Capsule(s) Oral QHS every night at bedtime 06/11/19 021 Inactive Lyrica 50 mg capsule RxNorm: 798784 Take 1 Capsule(s) Oral QAM every morning 06/10/19 021 Inactive hydrocortisone 2.5 % topical cream RxNorm: 453570 Apply to bilateral groin creases Topical BID 05/15/20 20 Inactive clotrimazole 1 % topical cream RxNorm: 445124 Apply to bilateral groin areas Topical BID 05/15/20 20 Inactive Lyrica 50 mg capsule RxNorm: 794137 Take 1 Capsule(s) Oral QAM every morning 05/14/20 20 Inactive Lyrica 100 mg capsule RxNorm: 334213 Take 1 Capsule(s) Oral QHS every night [...] Inactive Nystop 100,000 unit/gram topical powder RxNorm: 642229 Apply to abd folds, under breasts and L side of groin Topical BID x 14 days, then BID PRN 04/08/20 20 021 Inactive dx: yeast dermatitis Lyrica 100 mg capsule RxNorm: 807012 Take 1 Capsule(s) Oral QHS every night at bedtime 03/13/20 20 Inactive Lyrica 50 mg capsule RxNorm: 465557 Take 1 Capsule(s) Oral QAM every morning 03/13/20 20 Inactive ketoconazole 2 % shampoo RxNorm: 814319 Apply Topical two times a week with showers 10/26/ Inactive cholecalciferol (vitamin D3) 50 mcg (2,000 unit) tablet RxNorm: 014835 Take 1 Tablet(s) Oral QD 03/11/20 Inactive Zetia 10 mg tablet RxNorm: 230326 Take 1 Tablet(s) Oral QD 03/07/20 021 Inactive Zetia 10 mg tablet RxNorm: 198864 Take 1 Tablet(s) Oral QD 03/07/20 Inactive Lyrica 50 mg capsule RxNorm: 655816 Take 1 Capsule(s) Oral QAM every morning 02/15/20 Inactive Lyrica 100 mg capsule RxNorm: 340712 Take 1 Capsule(s) Oral QHS every night at bedtime 02/15/20 Inactive Lyrica 100 mg capsule RxNorm: 000759 Take 1 Capsule(s) Oral QHS every night at bedtime 02/15/20 Inactive Lyrica 50 mg capsule RxNorm: 170680 Take 1 Capsule(s) Oral QAM every morning 02/15/20 Inactive venlafaxine ER 75 mg capsule,extended release 24 hr RxNorm: 401005 Take 3 Capsule(s) Oral QD 06/12/19 Active polyethylene glycol 3350 17 gram/dose oral powder RxNorm: 291600 Take 17=1 capful Gram(s) Oral BID as needed mix with 4-8oz of liquid 06/12/19 Active loperamide 2 mg capsule RxNorm: 166267 Take 1 Capsule(s) Oral QID as needed 06/12/19 22 Active Levemir FlexTouch U-100 Insulin 100 unit/mL (3 mL) subcutaneous pen RxNorm: 742647 Inject 80 Unit(s) Subcutaneous BID 07/14/19 23 023 Inactive Novolog Flexpen U-100 Insulin aspart 100 unit/mL (3 mL) subcutaneous RxNorm: 1790740 Insert 30 Unit(s) Subcutaneous TID with meals [...] Codes Status Date Referral: [facility] WPtel: [phone], [address] [id number] [place] Referral Records Received 09/21/2022 Referral: [facility] WPtel: [address] [id number] [place] Referral Completed 05/28/2021 Referral: General Cardiology Referral Complet ed 01/03/2021 Referral: General Psychologist Referral Close d Instructions Comment Date Leonid is a Male being seen living at [facility]. Initial [facility]PS visit 01/2020. PMHx including DMII, CAD w/ 5 stents, Depression, Seizure Disorder and CKD stage 3. He moved into [facility] in 12/2019 but after a hospitalization 05/2021 he moved to the [facility] to have closer nursing attention. Sister Jyotnsa involved in his care cell# [phone] Guardian: Don (tapan met in person 09/01/21), now has Lexii (same group as don)Lab Schedule: * 10/06/2022
--- OUTSIDE RECORDS SUMMARY | 2022-08-04 19:00 | XMS_ITS | CCD ---
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 Name Role Phone Rosalina Shirley PA-C Primary Care Provider Unavailabl e Rosalina Shirley PA-C Chronic Care Management Unavaila ble Summary Purpose DataExchange Insurance Providers Payer name Policy type / Coverage type Covered alliance party ID Effective Begin Date Effective End Date Medicare [place] Medicare Part B [id number] Unknown Unknown Medicaid [place] Medicare Part B [id number] Unknown Unknown Family history Sister Brittany Suggs Diagnosis Age At Onset No Family Disease Entered N/A Runs in the family Diagnosis Age At Onset No Known Diseases N/A Sister Blanka Mcduffie Diagnosis Age At Onset No Family Disease Entered N/A Social History Social History Element Codes Description Effec tive Dates Marital status Unknown Single 10/07/2021 Living arrangements Unknown Halfway 09/03/[address]: 2646741 Non-Smoker / No History of Smoking 09/02/[address]: 953385396 No Alcohol Consum ption 09/02/2020 Allergies, Adverse Reactions, Alerts Substance Reaction Codes Entered Date Inactivated Date Status LISINOPRIL RxNorm: 13439 02/12/2020 No Inactive Da te Active Metformin [...] 05/01/2022 Active Coronary artery disease invo lving [place] coronary artery of [place] heart, angina presence unspecified ICD-10: I25.10 ICD-9: [...] immunization ICD-10: Z23 ICD-9: V03.89 02/10/2022 Resolved half-way (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 insulin ICD-10: Z79.4 02/10 [...] Fill Instructions carvedilol 25 mg tablet RxNorm: 481818 1 Tablet(s) Oral QD 07/28/19 23 023 Inactive lisinopril 20 mg tablet RxNorm: 270303 Give 1 Tablet(s) Oral QD 07/28/19 23 023 Inactive Lyrica 150 mg capsule RxNorm: 077110 Take 1 Capsule(s) Oral QHS every night at bedtime 07/19/19 23 023 Inactive d/c 100mg dose Diflucan 150 mg tablet RxNorm: 069431 Take 1 Tablet(s) Oral QD repeat on day 3 and 6 07/19/19 23 023 Inactive pregabalin 100 mg capsule RxNorm: 987137 Take 1 Capsule(s) Oral QAM every morning 07/19/19 23 023 Inactive gatifloxacin 0.5 % eye drops RxNorm: 916120 Instill 1 Drop(s) as directed TID Instill 1 drop in to affected eye(s) starting 1 day prior to surgery and continue until gone (do not exceed 4 weeks). 07/13/19 23 023 Inactive Humulin R Regular U-100 Insulin 100 unit/mL injection solution RxNorm: 595555 85 Unit(s) Injection TID 07/13/19 23 023 Inactive ketorolac 0.5 % eye drops RxNorm: 172242 Instill 1 Drop(s) as directed QID Instill 1 drop into affected eye(s) 4 times daily starting 1 day prior to surgery and continue until gone (do not exceed 4 weeks). 07/13/19 023 Inactive carvedilol 25 mg tablet RxNorm: 528538 2 Tablet(s) Oral BID 07/13/19 023 Inactive Diflucan 150 mg tablet RxNorm: 749175 Take 1 Tablet(s) Oral QD repeat on day 3 and 6 06/30/19 023 Inactive Accu-Chek Guide test strips RxNorm: Use 1 Test Strip QID Use 1 test strip to monitor blood glucose 4 times daily and as needed. Dx:E11.42. 06/23/19 23 023 Inactive ok to substitute with any covered alternative test strip dextromethorphan-gu aifenesin 10 mg-100 mg/5 mL oral liquid RxNorm: 987541 Take 10 Milliliter(s) Oral every 4 hours as needed for cough 06/19/19 23 023 Inactive dextromethorphan-gu aifenesin 10 mg-100 mg/5 mL oral liquid RxNorm: 914666 Take 10 Milliliter(s) Oral every 4 hours as needed for cough 06/19/19 23 023 Inactive Lyrica 150 mg capsule RxNorm: 541912 Take 1 Capsule(s) Oral QHS every night at bedtime 06/18/19 23 023 Inactive d/c 100mg dose aripiprazole 15 mg tablet RxNorm: 278009 1/2 TAB (7.5MG) ORALLY DAILY (DX:MAJOR DEPRESSIVE DISORDER) 06/05/19 23 023 Inactive pregabalin 100 mg capsule RxNorm: 007091 1 Capsule(s) Oral QAM every morning 06/02/19 023 Inactive Banophen 50 mg capsule RxNorm: 2916151 Take 1 Capsule(s) Oral Q6H every 6 hours as needed 05/19/19 No Stop Date Active Novolog Flexpen U-100 Insulin aspart 100 unit/mL (3 mL) subcutaneous RxNorm: 5120882 Inject 10 Unit(s) Subcutaneous QHS every night at bedtime with nighttime snack 04/08/20 022 Inactive Novolog Flexpen U-100 Insulin aspart 100 unit/mL (3 mL) subcutaneous RxNorm: 9792575 Inject 42 Unit(s) Subcutaneous TID in addition to sliding scale 04/08/20 Inactive d/c 36u albuterol sulfate HFA 90 mcg/actuation aerosol inhaler RxNorm: 5642162 Take 2 Puff(s) Inhalation Q4H every four hours as needed as needed for SOB, cough, or wheezing 04/07/20 030 Active Banophen 50 mg capsule RxNorm: 1658933 Take 1 Capsule(s) Oral Q6H every 6 hours as needed 04/06/20 023 Inactive diphenhydramine 50 mg tablet RxNorm: 4242913 Take 1 Tablet(s) Oral Q6H every 6 hours as needed 04/06/20 022 Inactive diphenhydramine 50 mg tablet RxNorm: 8152871 1 Tablet(s) Oral Q6H every 6 hours as needed 04/06/20 022 Inactive Abilify 15 mg tablet RxNorm: 437685 1/2 Tablet(s) Oral QD 03/10/20 22 023 Inactive Shingrix (PF) 50 mcg/0.5 mL intramuscular suspension, kit RxNorm: 3719814 Administer 1/2 Milliliter(s) Intramuscular QD one time shingrix step 2 ( step 1 given 11/04/21) WITH needle - Nursing please administer upon arrival and once administered 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, rubbish collector, 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, and lot# so we can update [facility] 02/18/20 22 022 Inactive dispense with needle Shingrix (PF) 50 mcg/0.5 mL intramuscular suspension, kit RxNorm: 0371843 Administer 1/2 Milliliter(s) Intramuscular QD one time shingrix step 2 ( step 1 given 11/04/21) WITH needle - Nursing please administer upon arrival and once administered 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, rubbish collector, 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, and lot# so we can update [facility] 02/18/20 22 Inactive dispense with needle acetaminophen 500 mg tablet RxNorm: 900904 Take 1 Tablet(s) Oral TID 01/08/20 22 023 Active d/c PRN order polyethylene glycol 3350 17 gram/dose oral powder RxNorm: 399704 Take 17=1 capful Gram(s) Oral QD mix with 4-8oz of liquid 01/08/20 023 Active take this in addition to BID prn order Lyrica 100 mg capsule RxNorm: 060145 Take 1 Capsule(s) Oral QAM every morning 01/08/20 22 022 Inactive d/c 50mg dose Lyrica 150 mg capsule RxNorm: 387386 Take 1 Capsule(s) Oral QHS every night at bedtime 01/08/20 22 023 Inactive d/c 100mg dose Abilify 5 mg tablet RxNorm: 288209 Take 1 Tablet(s) Oral QD take 1 tab po QD #30 refill 5 dx: MDD 12/12/19 22 022 Inactive Abilify 5 mg tablet RxNorm: 347788 Take 1 Tablet(s) Oral QD take 1 tab po QD #30 refill 5 dx: MDD 12/12/19 22 022 Inactive chlorthalidone 25 mg tablet RxNorm: 226474 Take 1 Tablet(s) Oral QAM every morning 12/10/19 22 023 Active Novolog Flexpen U-100 Insulin aspart 100 unit/mL (3 mL) subcutaneous RxNorm: 3816800 Inject 42 Unit(s) Subcutaneous TID in addition to sliding scale 12/10/19 22 022 Inactive d/c 36u pregabalin 50 mg capsule RxNorm: 415900 Take 1 Capsule(s) Oral QAM every morning 11/12/19 22 022 Inactive tetanus-diphtheria toxoids-Td 2 Lf unit-2 Lf unit/0.5 mL IM suspension RxNorm: 139 Take 0.5 Miscellaneous Intramuscular 11/12/19 22 022 Inactive need tdap - nursing to administer upon arrival pregabalin 50 mg capsule RxNorm: 552881 Take 1 Capsule(s) Oral QAM every morning 10/16/19 22 022 Inactive pregabalin 50 mg capsule RxNorm: 065822 Take 1 Capsule(s) Oral QAM every morning 10/16/19 22 022 Inactive pregabalin 50 mg capsule RxNorm: 768273 1 Capsule(s) Oral QAM every morning 10/15/19 22 022 Inactive Shingrix (PF) 50 mcg/0.5 mL intramuscular suspension, kit RxNorm: 1617836 Administer 1/2 Milliliter(s) Intramuscular one time Nursing please administer upon arrival and once administered 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, rubbish collector, 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 10/09/19 22 022 Inactive shingrix step 1 Shingrix (PF) 50 mcg/0.5 mL intramuscular suspension, kit RxNorm: 8927989 Administer 1/2 Milliliter(s) Intramuscular one time Nursing please administer upon arrival and once administered 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, rubbish collector, 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 10/09/19 22 022 Inactive shingrix step 1 cholecalciferol (vitamin D3) 1,250 mcg (50,000 unit) capsule RxNorm: 414190 Take 1 Capsule(s) Oral QW once a [...] aspart 100 unit/mL (3 mL) subcutaneous RxNorm: 3725627 Inject 10 Unit(s) Subcutaneous QHS every night at bedtime with nighttime snack 10/08/19 22 Inactive Shingrix (PF) 50 mcg/0.5 mL intramuscular suspension, kit RxNorm: 9991417 ADMINISTER 2-DOSE SERIES PER CDC GUIDELINES 10/08/19 22 Active Shingrix (PF) 50 mcg/0.5 mL intramuscular suspension, kit RxNorm: 6448721 ADMINISTER 2-DOSE SERIES PER CDC GUIDELINES 10/08/19 22 Inactive Novolog Flexpen U-100 Insulin aspart 100 unit/mL (3 mL) subcutaneous RxNorm: 9678713 Inject 36 Unit(s) Subcutaneous TID in addition to sliding scale 10/08/19 22 Inactive Novofine Autocover 30 gauge x 1/3 needle RxNorm: Use 1 Miscellaneous UD as directed Use 1 needle as directed to administer insulin 5 times a day Dx:E11.42. 10/03/19 Inactive ok to substitute with any covered alternative pen needle benzoyl peroxide 10 % topical cleanser RxNorm: 563632 Apply 1 Application Topical QD apply to face, wash rinse and dry once daily (may change to QOD if drying) 08/19/19 22 022 Inactive (%covered by insurance) #60ml refill 11 dx: acne benzoyl peroxide 10 % topical cleanser RxNorm: 484562 Apply 1 Application Topical QD apply to face, wash rinse and dry once daily (may change to QOD if drying) 08/19/19 22 022 Inactive (%covered by insurance) #60ml refill 11 dx: acne benzoyl peroxide 10 % topical cleanser RxNorm: 525309 Apply 1 Application Topical QD apply to face, wash rinse and dry once daily (may change to QOD if drying) 08/19/19 22 022 Inactive (%covered by insurance) #60ml refill 11 dx: acne Lyrica 50 mg capsule RxNorm: 238911 Take 1 Capsule(s) Oral QAM every morning Take 1 capsule by mouth once daily 08/19/19 22 022 Inactive benzoyl peroxide 10 % topical cleanser RxNorm: 928598 Apply 1 Application Topical QD apply to face, wash rinse and dry once daily (may change to QOD if drying) 08/19/19 22 Inactive (%covered by insurance) #60ml refill 11 dx: acne Lyrica 100 mg capsule RxNorm: 395522 Take 1 Capsule(s) Oral QHS every night at bedtime Take 1 capsule by mouth once daily at bedtime 08/19/19 022 Inactive Lyrica 100 mg capsule RxNorm: 988363 Take 1 Capsule(s) Oral QHS every night at bedtime Take 1 capsule by mouth once daily at bedtime 08/16/19 22 022 Inactive Lyrica 50 mg capsule RxNorm: 070020 Take 1 Capsule(s) Oral QAM every morning Take 1 capsule by mouth once daily 08/16/19 22 022 Inactive Levemir FlexTouch U-100 Insulin 100 unit/mL (3 mL) subcutaneous pen RxNorm: 556988 Inject 86 Unit(s) Subcutaneous BID 08/05/19 22 022 Inactive d/c 83units BID Lyrica 100 mg capsule RxNorm: 261763 Take 1 Capsule(s) Oral QHS every night at bedtime Take 1 capsule by mouth once daily at bedtime 07/14/19 22 022 Inactive Lyrica 50 mg capsule RxNorm: 587158 Take 1 Capsule(s) Oral QAM every morning Take 1 capsule by mouth once daily 07/14/19 22 022 Inactive Levemir FlexTouch U-100 Insulin 100 unit/mL (3 mL) subcutaneous pen RxNorm: 575383 Inject 83 Unit(s) Subcutaneous BID 07/08/19 22 [...] 30 mg tablet,extended release 24 hr RxNorm: 483669 Take 1 Tablet(s) Oral QD 05/05/20 No Stop Date Active hydralazine 50 mg tablet RxNorm: 808101 Take 1 Tablet(s) Oral QID 05/05/20 022 Inactive venlafaxine ER 225 mg tablet,extended release 24 hr RxNorm: 505084 Take 1 Tablet(s) Oral QD 05/05/20 021 Inactive venlafaxine ER 225 mg tablet,extended release 24 hr RxNorm: 273009 Take 1 Tablet(s) Oral QD 05/05/20 022 Inactive hydralazine 50 mg tablet RxNorm: 955092 Take 1 Tablet(s) Oral QID 05/05/20 21 Inactive aspirin 81 mg tablet,delayed release RxNorm: 872090 Take 1 Tablet(s) Oral QD 03/31/20 Inactive Zetia 10 mg tablet RxNorm: 869580 Take 1 Tablet(s) Oral QD 03/31/20 Inactive Vitamin D2 1,250 mcg (50,000 unit) capsule RxNorm: 7872799 Take 1 Capsule(s) Oral QW once a week x 12 weeks 03/31/20 Inactive Vitamin D2 1,250 mcg (50,000 unit) capsule RxNorm: 8018865 Take 1 Capsule(s) Oral QW once a week 03/31/20 Inactive Zetia 10 mg tablet RxNorm: 704083 Take 1 Tablet(s) Oral QD 03/31/20 Inactive hydralazine 25 mg tablet RxNorm: 992503 Take 1 Tablet(s) Oral QID 03/31/20 21 021 Inactive hydralazine 25 mg tablet RxNorm: 589977 Take 1 Tablet(s) Oral QID 03/31/20 Inactive hydralazine 10 mg tablet RxNorm: 642790 Take 1 Tablet(s) Oral QID 03/03/20 021 Inactive cephalexin 500 mg tablet RxNorm: 165611 Take 1 Tablet(s) Oral QID 02/27/20 021 Inactive cephalexin 500 mg tablet RxNorm: 379331 Take 1 Tablet(s) Oral QID 02/27/20 021 Inactive lisinopril 40 mg tablet RxNorm: 407855 Take 1 Tablet(s) Oral QD 02/11/20 023 Inactive Eliquis 5 mg tablet RxNorm: 8911018 Take 1 Tablet(s) Oral BID 01/05/20 21 022 Inactive Eliquis 5 mg tablet RxNorm: 7292142 Take 2 Tablet(s) Oral QD 01/01/20 21 021 Inactive Lyrica 50 mg capsule RxNorm: 677233 Take 1 Capsule(s) Oral QAM every morning 12/24/19 21 021 Inactive Lyrica 100 mg capsule RxNorm: 863160 Take 1 Capsule(s) Oral QHS every night at bedtime 12/24/19 21 021 Inactive clotrimazole 1 % topical cream RxNorm: 706305 Apply to right foot and toes Topical BID 12/04/19 21 023 Inactive metoprolol succinate ER 200 mg tablet,extended release 24 hr RxNorm: 177239 Take 1 Tablet(s) Oral QD 12/04/19 21 023 Inactive ciprofloxacin 500 mg tablet RxNorm: 253691 Take 1 Tablet(s) Oral QD 11/30/19 21 021 Inactive DX ofloxacin otic drops Accu-Chek Guide test strips RxNorm: USE 1 TO CHECK GLUCOSE 4 TIMES DAILY AND NEEDED 11/15/19 21 023 Inactive Blood Glucose Test strips RxNorm: Use 1 Test Strip QID at PRN 11/05/19 21 023 Inactive E11.42 lisinopril 30 mg tablet RxNorm: 646122 Take 1 Tablet(s) Oral QD 10/30/19 021 Inactive lisinopril 20 mg tablet RxNorm: 823556 Take 1 Tablet(s) Oral QD 10/23/19 21 021 Inactive lisinopril 20 mg tablet RxNorm: 661314 Take 1 Tablet(s) Oral QD 10/23/19 21 021 Inactive lisinopril 10 mg tablet RxNorm: 495241 Take 1 Tablet(s) Oral QD 10/02/19 021 Inactive icosapent ethyl 1 gram capsule RxNorm: 6511801 Take 2 Capsule(s) (2 gm) Oral BID with meals 09/12/19 21 022 Inactive Okay to dispense one 2gm tab if you have that available. icosapent ethyl 1 gram capsule RxNorm: 1339983 Take 2 Capsule(s) Oral BID 09/12/19 21 021 Inactive Okay to dispense one 2gm tab if you have that available. amlodipine 10 mg tablet RxNorm: 550418 Take 1 Tablet(s) Oral QD 09/04/19 022 Inactive aspirin 81 mg tablet,delayed release RxNorm: 435943 Take 1 Tablet(s) Oral QD 09/04/19 021 Inactive Levemir FlexTouch U-100 Insulin 100 unit/mL (3 mL) subcutaneous pen RxNorm: 275490 Inject 150 Unit(s) Subcutaneous BID 09/04/19 022 Inactive venlafaxine ER 150 mg tablet,extended release 24 hr RxNorm: 063417 Take 1 Tablet(s) Oral QD 09/04/19 Inactive clotrimazole-betame thasone 1 %-0.05 % topical cream RxNorm: 369487 Apply to rash on red area on left abdomen/chest Topical BID 08/10/19 Inactive amlodipine 5 mg tablet RxNorm: 768740 Take 1 Tablet(s) Oral QD 07/31/19 Inactive cephalexin 500 mg tablet RxNorm: 785226 Take 1 Tablet(s) Oral BID BID - Twice Daily 07/31/19 021 Inactive Start 08/01/20 pantoprazole 40 mg tablet,delayed release RxNorm: 270042 Take 1 Tablet(s) Oral QAM every morning 07/08/19 022 Inactive senna 8.6 mg tablet RxNorm: 118562 Take 1 Tablet(s) Oral QD 07/08/19 022 Inactive pravastatin 80 mg tablet RxNorm: 146325 Take 1 Tablet(s) Oral QHS every night at bedtime 07/08/19 022 Inactive carbamazepine 200 mg tablet RxNorm: 681228 Take 1 Tablet(s) Oral BID 07/08/19 022 Inactive torsemide 20 mg tablet RxNorm: 024508 Take 1 Tablet(s) Oral QD 07/08/19 21 023 Inactive clopidogrel 75 mg tablet RxNorm: 439767 Take 1 Tablet(s) Oral QD 07/08/19 021 Inactive Blood Glucose Test strips RxNorm: Use 1 Test Strip QID at PRN 07/08/19 21 Inactive E11.42 Novolog Flexpen U-100 Insulin aspart 100 unit/mL (3 mL) subcutaneous RxNorm: 5120017 Administer per sliding scale Milliliter(s) Subcutaneous TID 151-200: 10 u; 201-250: 20 u; 251-300: 30 u; 301-350: 40 u; 351-400: 50 u. 07/08/19 022 Inactive lisinopril 5 mg tablet RxNorm: 883725 Take 1 Tablet(s) Oral QD 07/08/19 021 Inactive Novolog Flexpen U-100 Insulin aspart 100 unit/mL (3 mL) subcutaneous RxNorm: 5357805 Inject 85 Unit(s) Subcutaneous TID 07/08/19 Inactive clotrimazole 1 % topical cream RxNorm: 892739 Apply to bilateral groin areas Topical BID 07/08/19 Inactive metoprolol succinate ER 200 mg tablet,extended release 24 hr RxNorm: 489648 Take 1 Tablet(s) Oral QD 07/08/19 021 Inactive Vitamin D3 25 mcg (1,000 unit) tablet RxNorm: 060081 Take 1 Tablet(s) Oral QD 07/08/19 021 Inactive isosorbide dinitrate 30 mg tablet RxNorm: 061061 Take 1 Tablet(s) Oral QD 07/08/19 021 Inactive Levemir FlexTouch U-100 Insulin 100 unit/mL (3 mL) subcutaneous pen RxNorm: 308681 Inject 140 Unit(s) Subcutaneous BID 07/08/19 Inactive venlafaxine 75 mg tablet RxNorm: 791117 Take 1 Tablet(s) Oral QD 07/08/19 Inactive acetaminophen 500 mg tablet RxNorm: 985218 Take 1 Tablet(s) Oral TID as needed for headache 06/18/19 Inactive acetaminophen 500 mg tablet RxNorm: 858438 Take 1 Tablet(s) Oral TID as needed for headache 06/18/19 21 021 Inactive Lyrica 100 mg capsule RxNorm: 241522 Take 1 Capsule(s) Oral QHS every night at bedtime 06/11/19 21 021 Inactive Lyrica 50 mg capsule RxNorm: 577283 Take 1 Capsule(s) Oral QAM every morning 06/10/19 21 021 Inactive hydrocortisone 2.5 % topical cream RxNorm: 149553 Apply to bilateral groin creases Topical BID 05/15/20 20 021 Inactive clotrimazole 1 % topical cream RxNorm: 213640 Apply to bilateral groin areas Topical BID 05/15/20 20 021 Inactive Lyrica 50 mg capsule RxNorm: 371678 Take 1 Capsule(s) Oral QAM every morning 05/14/20 20 020 Inactive Lyrica 100 mg capsule RxNorm: 782377 Take 1 Capsule(s) Oral QHS every night [...] Inactive Nystop 100,000 unit/gram topical powder RxNorm: 021811 Apply to abd folds, under breasts and L side of groin Topical BID x 14 days, then BID PRN 04/08/20 20 021 Inactive dx: yeast dermatitis Lyrica 100 mg capsule RxNorm: 959034 Take 1 Capsule(s) Oral QHS every night at bedtime 03/13/20 20 020 Inactive Lyrica 50 mg capsule RxNorm: 734114 Take 1 Capsule(s) Oral QAM every morning 03/13/20 20 Inactive ketoconazole 2 % shampoo RxNorm: 240115 Apply Topical two times a week with showers 03/11/20 20 Inactive cholecalciferol (vitamin D3) 50 mcg (2,000 unit) tablet RxNorm: 567165 Take 1 Tablet(s) Oral QD 03/11/20 20 Inactive Zetia 10 mg tablet RxNorm: 709245 Take 1 Tablet(s) Oral QD 03/07/20 20 Inactive Zetia 10 mg tablet RxNorm: 794090 Take 1 Tablet(s) Oral QD 03/07/20 20 Inactive Lyrica 50 mg capsule RxNorm: 645163 Take 1 Capsule(s) Oral QAM every morning 02/15/20 20 Inactive Lyrica 100 mg capsule RxNorm: 061441 Take 1 Capsule(s) Oral QHS every night at bedtime 02/15/20 20 Inactive Lyrica 100 mg capsule RxNorm: 869746 Take 1 Capsule(s) Oral QHS every night at bedtime 02/15/20 20 Inactive Lyrica 50 mg capsule RxNorm: 755881 Take 1 Capsule(s) Oral QAM every morning 02/15/20 20 Inactive venlafaxine ER 75 mg capsule,extended release 24 hr RxNorm: 491894 Take 3 Capsule(s) Oral QD 06/12/19 Active polyethylene glycol 3350 17 gram/dose oral powder RxNorm: 264338 Take 17=1 capful Gram(s) Oral BID as needed mix with 4-8oz of liquid 06/12/19 Active loperamide 2 mg capsule RxNorm: 812595 Take 1 Capsule(s) Oral QID as needed 06/12/19 Active Levemir FlexTouch U-100 Insulin 100 unit/mL (3 mL) subcutaneous pen RxNorm: 738068 Inject 80 Unit(s) Subcutaneous BID 07/14/19 23 023 Inactive Novolog Flexpen U-100 Insulin aspart 100 unit/mL (3 mL) subcutaneous RxNorm: 2131160 Insert 30 Unit(s) Subcutaneous TID with meals [...] Referral: [facility] WPtel: [id number], [address] [id number] [place] Referral Records Received 09/21/2022 Referral: [facility] WPtel: [address] [id number] [place] Referral Completed 05/28/2021 Referral: General Cardiology Referral Complet ed 01/03/2021 Referral: General Psychologist Referral Close d Instructions Comment Date Leonid is a Male being seen living at [facility]. Initial BPS visit 01/2020. PMHx including DMII, CAD w/ 5 stents, Depression, Seizure Disorder and CKD stage 3. He moved into [facility] in 12/2019 but after a hospitalization 05/2021 he moved to the [facility] to have closer nursing attention. Sister Jyotsna involved in his care cell# [phone] Guardian: Don middleton met in person 09/01/21), now has Lexii (same group as don)Lab Schedule: * 10/06/2022
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
--- OUTSIDE RECORDS SUMMARY | 2022-09-14 19:00 | XMS_ITS | CCD ---
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 Name Role Phone Tapan Shirley PA-C Primary Care Provider Unavailabl e Tapan Shirley PA-C Chronic Care Management Unavaila ble Summary Purpose DataExchange Insurance Providers Payer name Policy type / Coverage type Covered democrat ID Effective Begin Date Effective End Date [place] Part B [id number] Unknown Unknown [place] B [id number] Unknown Unknown Family history Sister Brittany Suggs Diagnosis Age At Onset No Family Disease Entered N/A Runs in the family Diagnosis Age At Onset No Known Diseases N/A Sister Blanka Mcduffie Diagnosis Age At Onset No Family Disease Entered N/A Social History Social History Element Codes Description Effec tive Dates Marital status Unknown Single 10/07/2021 Living arrangements Unknown Alf 09/03/[address]: 7494283 Non-Smoker / No History of Smoking 09/02/[address]: 484846596 No Alcohol Consum ption 09/02/2020 Allergies, Adverse Reactions, Alerts Substance Reaction Codes Entered Date Inactivated Date Status LISINOPRIL RxNorm: 66291 02/12/2020 No Inactive Da te Active Metformin HCl Unknown 02/12/2020 No Inactive Cristiano e Active Problems Condition Codes Effective Dates Condition St atus High risk medication use ICD-10: Z79.899 ICD-9: V58.69 09/15/2022 Active Recurrent major depressive disorder, in partial remission ICD-10: F33.41 ICD-9: 296.35 09/15/2022 Active Hyperlipidemia associated wi th type 2 diabetes mellitus ICD-10: E11.69 ICD-9: 250.80 09/08/2022 Active Lower extremity edema ICD-10: R60.0 ICD-9: 782.3 09/08/2022 Active Stage 2 chronic kidney disea se due to type 2 diabetes mellitus ICD-10: E11.22 ICD-9: 250.40 09/08/2022 Active Type 2 diabetes mellitus wit h diabetic polyneuropathy, with long-term current use of insulin ICD-10: E11.42 ICD-9: 250.60 09/08/2022 Active Amputated toe of right foot ICD-10: S98. 131A ICD-9: 895.0 08/11/2022 Active Coronary artery disease invo lving [place] coronary artery of [place] heart, angina presence unspecified ICD-10: I25.10 ICD-9: 414.01 08/11/2022 Active Onychogryposis ICD-10: L60.2 ICD-9: 703.8 08/11/2022 Active Pre-op evaluation ICD-10: Z01.818 ICD-9: V72.84 08/11/2022 Active Secondary hypertension ICD-10: I15.9 ICD-9: 405.99 08/11/2022 Active Candidiasis, intertrigo ICD-10: B37.2 ICD-9: 112.3 07/14/2022 Active Hypertensive heart disease w ithout heart failure ICD-10: I11.9 ICD-9: 402.90 07/14/2022 Active Major depression, recurrent ICD-10: F33. 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 ICD-10: Z79.4 02/10 Resolved Muscular pain ICD-10: M79.10 ICD-9: 729.1 02/10/2022 Resolved Pain of right heel ICD-10: M79.671 ICD-9: 729.5 02/10/2022 Resolved Dandruff in adult ICD-10: L21.0 ICD-9: 690.18 01/06/2022 Active Hypertension associated with diabetes ICD-10: E11.59 ICD-9: 250.80 01/06/2022 Resolved History of anemia due to CKD ICD-10: N18 .9 ICD-9: 585.9 12/09/2021 Active Stage 2 chronic kidney disease ICD-10: N 18.2 ICD-9: 585.2 12/09/2021 Active Gout due to renal impairment ICD-10: M10 .30 ICD-9: 274.10 11/11/2021 Active Preventative health care ICD-10: Z00.00 ICD-9: V70.0 11/11/2021 Active Learning disability ICD-10: F81.9 ICD-9: 315.2 [...] Use 1 Test Strip QID 09/15/19 23 024 Active ok to substitute with any covered alternative test strip Lancets,Thin 28 gauge RxNorm: Use 1 as directed QID 09/15/19 23 024 Active torsemide 20 mg tablet RxNorm: 875839 Take 1 Tablet(s) Oral BID 09/09/19 23 024 Active d/c once daily dosing carvedilol 25 mg tablet RxNorm: 037771 Take 1 Tablet(s) Oral QD 08/25/19 23 024 Active pregabalin 150 mg capsule RxNorm: 421956 1 Capsule(s) Oral HS at bed time 08/18/19 23 023 Active pregabalin 100 mg capsule RxNorm: 688530 1 Capsule(s) Oral QAM every morning 08/18/19 23 023 Active lisinopril 20 mg tablet RxNorm: 213567 Give 1 Tablet(s) Oral QD 07/28/19 23 023 Inactive carvedilol 25 mg tablet RxNorm: 065091 1 Tablet(s) Oral QD 07/28/19 23 023 Inactive Lyrica 150 mg capsule RxNorm: 391510 Take 1 Capsule(s) Oral QHS every night at bedtime 07/19/19 023 Inactive d/c 100mg dose Diflucan 150 mg tablet RxNorm: 644673 Take 1 Tablet(s) Oral QD repeat on day 3 and 6 07/19/19 23 023 Inactive pregabalin 100 mg capsule RxNorm: 414863 Take 1 Capsule(s) Oral QAM every morning 07/19/19 023 Inactive Humulin R Regular U-100 Insulin 100 unit/mL injection solution RxNorm: 580026 85 Unit(s) Injection TID 07/13/19 023 Inactive gatifloxacin 0.5 % eye drops RxNorm: 684989 Instill 1 Drop(s) as directed TID Instill 1 drop in to affected eye(s) starting 1 day prior to surgery and continue until gone (do not exceed 4 weeks). 07/13/19 23 023 Inactive carvedilol 25 mg tablet RxNorm: 237919 2 Tablet(s) Oral BID 07/13/19 23 023 Inactive ketorolac 0.5 % eye drops RxNorm: 260142 Instill 1 Drop(s) as directed QID Instill 1 drop into affected eye(s) 4 times daily starting 1 day prior to surgery and continue until gone (do not exceed 4 weeks). 07/13/19 23 023 Inactive Diflucan 150 mg tablet RxNorm: 079584 Take 1 Tablet(s) Oral QD repeat on day 3 and 6 06/30/19 23 023 Inactive Accu-Chek Guide test strips RxNorm: Use 1 Test Strip QID Use 1 test strip to monitor blood glucose 4 times daily and as needed. Dx:E11.42. 06/23/19 23 023 Inactive ok to substitute with any covered alternative test strip dextromethorphan-gu aifenesin 10 mg-100 mg/5 mL oral liquid RxNorm: 764241 Take 10 Milliliter(s) Oral every 4 hours as needed for cough 06/19/19 023 Inactive dextromethorphan-gu aifenesin 10 mg-100 mg/5 mL oral liquid RxNorm: 355921 Take 10 Milliliter(s) Oral every 4 hours as needed for cough 06/19/19 023 Inactive Lyrica 150 mg capsule RxNorm: 546469 Take 1 Capsule(s) Oral QHS every night at bedtime 06/18/19 023 Inactive d/c 100mg dose aripiprazole 15 mg tablet RxNorm: 223028 1/2 TAB (7.5MG) ORALLY DAILY (DX:MAJOR DEPRESSIVE DISORDER) 06/05/19 023 Inactive pregabalin 100 mg capsule RxNorm: 871359 1 Capsule(s) Oral QAM every morning 06/02/19 023 Inactive Banophen 50 mg capsule RxNorm: 7347404 Take 1 Capsule(s) Oral Q6H every 6 hours as needed 05/19/19 23 No Stop Date Active Novolog Flexpen U-100 Insulin aspart 100 unit/mL (3 mL) subcutaneous RxNorm: 7246534 Inject 10 Unit(s) Subcutaneous QHS every night at bedtime with nighttime snack 04/08/20 022 Inactive Novolog Flexpen U-100 Insulin aspart 100 unit/mL (3 mL) subcutaneous RxNorm: 9558143 Inject 42 Unit(s) Subcutaneous TID in addition to sliding scale 04/08/20 022 Inactive d/c 36u albuterol sulfate HFA 90 mcg/actuation aerosol inhaler RxNorm: 5316960 Take 2 Puff(s) Inhalation Q4H every four hours as needed as needed for SOB, cough, or wheezing 04/07/20 22 030 Active Banophen 50 mg capsule RxNorm: 6022893 Take 1 Capsule(s) Oral Q6H every 6 hours as needed 04/06/20 023 Inactive diphenhydramine 50 mg tablet RxNorm: 2464574 Take 1 Tablet(s) Oral Q6H every 6 hours as needed 04/06/20 22 022 Inactive diphenhydramine 50 mg tablet RxNorm: 6241440 1 Tablet(s) Oral Q6H every 6 hours as needed 04/06/20 22 022 Inactive Abilify 15 mg tablet RxNorm: 432565 1/2 Tablet(s) Oral QD 03/10/20 023 Inactive Shingrix (PF) 50 mcg/0.5 mL intramuscular suspension, kit RxNorm: 9630905 Administer 1/2 Milliliter(s) Intramuscular QD one time shingrix step 2 ( step 1 given 11/04/21) WITH needle - Nursing please administer upon arrival and once administered 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, mine expert, 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, and lot# so we can update [facility] 02/18/20 22 022 Inactive dispense with needle Shingrix (PF) 50 mcg/0.5 mL intramuscular suspension, kit RxNorm: 9345675 Administer 1/2 Milliliter(s) Intramuscular QD one time shingrix step 2 ( step 1 given 11/04/21) WITH needle - Nursing please administer upon arrival and once administered 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, mine expert, 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, and lot# so we can update [facility] 02/18/20 22 022 Inactive dispense with needle acetaminophen 500 mg tablet RxNorm: 576767 Take 1 Tablet(s) Oral TID 01/08/20 22 023 Active d/c PRN order polyethylene glycol 3350 17 gram/dose oral powder RxNorm: 847570 Take 17=1 capful Gram(s) Oral QD mix with 4-8oz of liquid 01/08/20 22 023 Active take this in addition to BID prn order Lyrica 100 mg capsule RxNorm: 402348 Take 1 Capsule(s) Oral QAM every morning 01/08/20 22 022 Inactive d/c 50mg dose Lyrica 150 mg capsule RxNorm: 712478 Take 1 Capsule(s) Oral QHS every night at bedtime 01/08/20 22 023 Inactive d/c 100mg dose Abilify 5 mg tablet RxNorm: 968424 Take 1 Tablet(s) Oral QD take 1 tab po QD #30 refill 5 dx: MDD 12/12/19 22 022 Inactive Abilify 5 mg tablet RxNorm: 880766 Take 1 Tablet(s) Oral QD take 1 tab po QD #30 refill 5 dx: MDD 12/12/19 22 022 Inactive chlorthalidone 25 mg tablet RxNorm: 726088 Take 1 Tablet(s) Oral QAM every morning 12/10/19 22 023 Active Novolog Flexpen U-100 Insulin aspart 100 unit/mL (3 mL) subcutaneous RxNorm: 0042591 Inject 42 Unit(s) Subcutaneous TID in addition to sliding scale 12/10/19 22 022 Inactive d/c 36u pregabalin 50 mg capsule RxNorm: 985560 Take 1 Capsule(s) Oral QAM every morning 11/12/19 22 022 Inactive tetanus-diphtheria toxoids-Td 2 Lf unit-2 Lf unit/0.5 mL IM suspension RxNorm: 139 Take 0.5 Miscellaneous Intramuscular 11/12/19 22 022 Inactive need tdap - nursing to administer upon arrival pregabalin 50 mg capsule RxNorm: 596711 Take 1 Capsule(s) Oral QAM every morning 10/16/19 22 022 Inactive pregabalin 50 mg capsule RxNorm: 657284 Take 1 Capsule(s) Oral QAM every morning 10/16/19 22 022 Inactive pregabalin 50 mg capsule RxNorm: 829350 1 Capsule(s) Oral QAM every morning 10/15/19 22 022 Inactive Shingrix (PF) 50 mcg/0.5 mL intramuscular suspension, kit RxNorm: 3490860 Administer 1/2 Milliliter(s) Intramuscular one time Nursing please administer upon arrival and once administered 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, mine expert, 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 10/09/19 22 022 Inactive shingrix step 1 Shingrix (PF) 50 mcg/0.5 mL intramuscular suspension, kit RxNorm: 4109764 Administer 1/2 Milliliter(s) Intramuscular one time Nursing please administer upon arrival and once administered 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, mine expert, 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 10/09/19 22 022 Inactive shingrix step 1 cholecalciferol (vitamin D3) 1,250 mcg (50,000 unit) capsule RxNorm: 497504 Take 1 Capsule(s) Oral QW once a [...] aspart 100 unit/mL (3 mL) subcutaneous RxNorm: 6778036 Inject 10 Unit(s) Subcutaneous QHS every night at bedtime with nighttime snack 10/08/19 22 Inactive Shingrix (PF) 50 mcg/0.5 mL intramuscular suspension, kit RxNorm: 3887664 ADMINISTER 2-DOSE SERIES PER CDC GUIDELINES 10/08/19 22 022 Active Shingrix (PF) 50 mcg/0.5 mL intramuscular suspension, kit RxNorm: 8400042 ADMINISTER 2-DOSE SERIES PER CDC GUIDELINES 10/08/19 22 022 Inactive Novolog Flexpen U-100 Insulin aspart 100 unit/mL (3 mL) subcutaneous RxNorm: 0375945 Inject 36 Unit(s) Subcutaneous TID in addition to sliding scale 10/08/19 22 Inactive Novofine Autocover 30 gauge x 1/3 needle RxNorm: Use 1 Miscellaneous UD as directed Use 1 needle as directed to administer insulin 5 times a day Dx:E11.42. 10/03/19 22 Inactive ok to substitute with any covered alternative pen needle benzoyl peroxide 10 % topical cleanser RxNorm: 131565 Apply 1 Application Topical QD apply to face, wash rinse and dry once daily (may change to QOD if drying) 08/19/19 22 022 Inactive (%covered by insurance) #60ml refill 11 dx: acne benzoyl peroxide 10 % topical cleanser RxNorm: 651581 Apply 1 Application Topical QD apply to face, wash rinse and dry once daily (may change to QOD if drying) 08/19/19 22 022 Inactive (%covered by insurance) #60ml refill 11 dx: acne benzoyl peroxide 10 % topical cleanser RxNorm: 635139 Apply 1 Application Topical QD apply to face, wash rinse and dry once daily (may change to QOD if drying) 08/19/19 22 022 Inactive (%covered by insurance) #60ml refill 11 dx: acne Lyrica 50 mg capsule RxNorm: 539377 Take 1 Capsule(s) Oral QAM every morning Take 1 capsule by mouth once daily 08/19/19 22 022 Inactive benzoyl peroxide 10 % topical cleanser RxNorm: 580582 Apply 1 Application Topical QD apply to face, wash rinse and dry once daily (may change to QOD if drying) 08/19/19 22 022 Inactive (%covered by insurance) #60ml refill 11 dx: acne Lyrica 100 mg capsule RxNorm: 144070 Take 1 Capsule(s) Oral QHS every night at bedtime Take 1 capsule by mouth once daily at bedtime 08/19/19 22 022 Inactive Lyrica 100 mg capsule RxNorm: 885741 Take 1 Capsule(s) Oral QHS every night at bedtime Take 1 capsule by mouth once daily at bedtime 08/16/19 22 022 Inactive Lyrica 50 mg capsule RxNorm: 663322 Take 1 Capsule(s) Oral QAM every morning Take 1 capsule by mouth once daily 08/16/19 22 022 Inactive Levemir FlexTouch U-100 Insulin 100 unit/mL (3 mL) subcutaneous pen RxNorm: 467679 Inject 86 Unit(s) Subcutaneous BID 08/05/19 22 022 Inactive d/c 83units BID Lyrica 100 mg capsule RxNorm: 527334 Take 1 Capsule(s) Oral QHS every night at bedtime Take 1 capsule by mouth once daily at bedtime 07/14/19 22 022 Inactive Lyrica 50 mg capsule RxNorm: 217879 Take 1 Capsule(s) Oral QAM every morning Take 1 capsule by mouth once daily 07/14/19 22 022 Inactive Levemir FlexTouch U-100 Insulin 100 unit/mL (3 mL) subcutaneous pen RxNorm: 902053 Inject 83 Unit(s) Subcutaneous BID 07/08/19 22 [...] as directed to administer insulin. Dx:. 06/05/19 22 022 Inactive ok to substitute with any covered alternative pen needle Novofine Autocover 30 gauge x 1/3 needle RxNorm: Use 1 Miscellaneous UD as directed Use 1 needle as directed to administer insulin 5 times a day Dx:. 06/05/19 22 022 Inactive ok to substitute [...] 30 mg tablet,extended release 24 hr RxNorm: 893274 Take 1 Tablet(s) Oral QD 05/05/20 No Stop Date Active hydralazine 50 mg tablet RxNorm: 878925 Take 1 Tablet(s) Oral QID 05/05/20 21 Inactive venlafaxine ER 225 mg tablet,extended release 24 hr RxNorm: 149848 Take 1 Tablet(s) Oral QD 05/05/20 Inactive venlafaxine ER 225 mg tablet,extended release 24 hr RxNorm: 708274 Take 1 Tablet(s) Oral QD 05/05/20 022 Inactive hydralazine 50 mg tablet RxNorm: 962823 Take 1 Tablet(s) Oral QID 05/05/20 21 Inactive aspirin 81 mg tablet,delayed release RxNorm: 378359 Take 1 Tablet(s) Oral QD 03/31/20 022 Inactive Zetia 10 mg tablet RxNorm: 691445 Take 1 Tablet(s) Oral QD 03/31/20 022 Inactive Vitamin D2 1,250 mcg (50,000 unit) capsule RxNorm: 3247889 Take 1 Capsule(s) Oral QW once a week x 12 weeks 03/31/20 022 Inactive Vitamin D2 1,250 mcg (50,000 unit) capsule RxNorm: 2457837 Take 1 Capsule(s) Oral QW once a week 03/31/20 Inactive Zetia 10 mg tablet RxNorm: 721883 Take 1 Tablet(s) Oral QD 03/31/20 Inactive hydralazine 25 mg tablet RxNorm: 708345 Take 1 Tablet(s) Oral QID 11/ 021 Inactive hydralazine 25 mg tablet RxNorm: 070709 Take 1 Tablet(s) Oral QID 03/31/20 021 Inactive hydralazine 10 mg tablet RxNorm: 070815 Take 1 Tablet(s) Oral QID 03/03/20 021 Inactive cephalexin 500 mg tablet RxNorm: 326254 Take 1 Tablet(s) Oral QID 02/27/20 021 Inactive cephalexin 500 mg tablet RxNorm: 448713 Take 1 Tablet(s) Oral QID 02/27/20 021 Inactive lisinopril 40 mg tablet RxNorm: 795063 Take 1 Tablet(s) Oral QD 02/11/20 023 Inactive Eliquis 5 mg tablet RxNorm: 4332689 Take 1 Tablet(s) Oral BID 01/05/20 022 Inactive Eliquis 5 mg tablet RxNorm: 3490954 Take 2 Tablet(s) Oral QD 01/01/20 21 021 Inactive Lyrica 50 mg capsule RxNorm: 671400 Take 1 Capsule(s) Oral QAM every morning 12/24/19 021 Inactive Lyrica 100 mg capsule RxNorm: 835809 Take 1 Capsule(s) Oral QHS every night at bedtime 12/24/19 021 Inactive clotrimazole 1 % topical cream RxNorm: 133661 Apply to right foot and toes Topical BID 12/04/19 21 023 Inactive metoprolol succinate ER 200 mg tablet,extended release 24 hr RxNorm: 878283 Take 1 Tablet(s) Oral QD 12/04/19 023 Inactive ciprofloxacin 500 mg tablet RxNorm: 175110 Take 1 Tablet(s) Oral QD 11/30/19 021 Inactive DX ofloxacin otic drops Accu-Chek Guide test strips RxNorm: USE 1 TO CHECK GLUCOSE 4 TIMES DAILY AND NEEDED 11/15/19 21 023 Inactive Blood Glucose Test strips RxNorm: Use 1 Test Strip QID at PRN 06/21 023 Inactive E11.42 lisinopril 30 mg tablet RxNorm: 411034 Take 1 Tablet(s) Oral QD 10/30/19 021 Inactive lisinopril 20 mg tablet RxNorm: 524489 Take 1 Tablet(s) Oral QD 10/23/19 21 021 Inactive lisinopril 20 mg tablet RxNorm: 875409 Take 1 Tablet(s) Oral QD 10/23/19 21 Inactive lisinopril 10 mg tablet RxNorm: 546065 Take 1 Tablet(s) Oral QD 10/02/19 21 021 Inactive icosapent ethyl 1 gram capsule RxNorm: 4299018 Take 2 Capsule(s) (2 gm) Oral BID with meals 09/12/19 21 022 Inactive Okay to dispense one 2gm tab if you have that available. icosapent ethyl 1 gram capsule RxNorm: 8846190 Take 2 Capsule(s) Oral BID 09/12/19 021 Inactive Okay to dispense one 2gm tab if you have that available. amlodipine 10 mg tablet RxNorm: 548131 Take 1 Tablet(s) Oral QD 09/04/19 022 Inactive aspirin 81 mg tablet,delayed release RxNorm: 690420 Take 1 Tablet(s) Oral QD 09/04/19 Inactive Levemir FlexTouch U-100 Insulin 100 unit/mL (3 mL) subcutaneous pen RxNorm: 974310 Inject 150 Unit(s) Subcutaneous BID 09/04/19 21 022 Inactive venlafaxine ER 150 mg tablet,extended release 24 hr RxNorm: 440833 Take 1 Tablet(s) Oral QD 09/04/19 21 021 Inactive clotrimazole-betame thasone 1 %-0.05 % topical cream RxNorm: 169198 Apply to rash on red area on left abdomen/chest Topical BID 08/10/19 21 021 Inactive amlodipine 5 mg tablet RxNorm: 002641 Take 1 Tablet(s) Oral QD 07/31/19 21 021 Inactive cephalexin 500 mg tablet RxNorm: 706597 Take 1 Tablet(s) Oral BID BID - Twice Daily 07/31/19 021 Inactive Start 08/01/20 pantoprazole 40 mg tablet,delayed release RxNorm: 932758 Take 1 Tablet(s) Oral QAM every morning 07/08/19 022 Inactive senna 8.6 mg tablet RxNorm: 910525 Take 1 Tablet(s) Oral QD 07/08/19 022 Inactive pravastatin 80 mg tablet RxNorm: 506523 Take 1 Tablet(s) Oral QHS every night at bedtime 07/08/19 Inactive carbamazepine 200 mg tablet RxNorm: 935796 Take 1 Tablet(s) Oral BID 07/08/19 022 Inactive torsemide 20 mg tablet RxNorm: 469667 Take 1 Tablet(s) Oral QD 07/08/19 023 Inactive clopidogrel 75 mg tablet RxNorm: 155918 Take 1 Tablet(s) Oral QD 07/08/19 021 Inactive Blood Glucose Test strips RxNorm: Use 1 Test Strip QID at PRN 07/08/19 Inactive E11.42 Novolog Flexpen U-100 Insulin aspart 100 unit/mL (3 mL) subcutaneous RxNorm: 9035272 Administer per sliding scale Milliliter(s) Subcutaneous TID 151-200: 10 u; 201-250: 20 u; 251-300: 30 u; 301-350: 40 u; 351-400: 50 u. 07/08/19 022 Inactive lisinopril 5 mg tablet RxNorm: 731627 Take 1 Tablet(s) Oral QD 07/08/19 021 Inactive Novolog Flexpen U-100 Insulin aspart 100 unit/mL (3 mL) subcutaneous RxNorm: 2550782 Inject 85 Unit(s) Subcutaneous TID 07/08/19 21 022 Inactive clotrimazole 1 % topical cream RxNorm: 794731 Apply to bilateral groin areas Topical BID 07/08/19 022 Inactive metoprolol succinate ER 200 mg tablet,extended release 24 hr RxNorm: 753790 Take 1 Tablet(s) Oral QD 07/08/19 21 021 Inactive Vitamin D3 25 mcg (1,000 unit) tablet RxNorm: 807629 Take 1 Tablet(s) Oral QD 07/08/19 21 Inactive isosorbide dinitrate 30 mg tablet RxNorm: 726467 Take 1 Tablet(s) Oral QD 07/08/19 Inactive Levemir FlexTouch U-100 Insulin 100 unit/mL (3 mL) subcutaneous pen RxNorm: 573991 Inject 140 Unit(s) Subcutaneous BID 07/08/19 021 Inactive venlafaxine 75 mg tablet RxNorm: 508488 Take 1 Tablet(s) Oral QD 07/08/19 Inactive acetaminophen 500 mg tablet RxNorm: 136696 Take 1 Tablet(s) Oral TID as needed for headache 06/18/19 Inactive acetaminophen 500 mg tablet RxNorm: 615487 Take 1 Tablet(s) Oral TID as needed for headache 06/18/19 Inactive Lyrica 100 mg capsule RxNorm: 655393 Take 1 Capsule(s) Oral QHS every night at bedtime 06/11/19 021 Inactive Lyrica 50 mg capsule RxNorm: 361058 Take 1 Capsule(s) Oral QAM every morning 06/10/19 021 Inactive hydrocortisone 2.5 % topical cream RxNorm: 039449 Apply to bilateral groin creases Topical BID 05/15/20 20 021 Inactive clotrimazole 1 % topical cream RxNorm: 166982 Apply to bilateral groin areas Topical BID 05/15/20 20 021 Inactive Lyrica 50 mg capsule RxNorm: 720421 Take 1 Capsule(s) Oral QAM every morning 05/14/20 20 Inactive Lyrica 100 mg capsule RxNorm: 300552 Take 1 Capsule(s) Oral QHS every night [...] Inactive Nystop 100,000 unit/gram topical powder RxNorm: 386485 Apply to abd folds, under breasts and L side of groin Topical BID x 14 days, then BID PRN 04/08/20 20 021 Inactive dx: yeast dermatitis Lyrica 100 mg capsule RxNorm: 813244 Take 1 Capsule(s) Oral QHS every night at bedtime 03/13/20 20 Inactive Lyrica 50 mg capsule RxNorm: 614424 Take 1 Capsule(s) Oral QAM every morning 03/13/20 20 Inactive ketoconazole 2 % shampoo RxNorm: 421596 Apply Topical two times a week with showers 03/11/20 20 Inactive cholecalciferol (vitamin D3) 50 mcg (2,000 unit) tablet RxNorm: 757489 Take 1 Tablet(s) Oral QD 03/11/20 20 021 Inactive Zetia 10 mg tablet RxNorm: 300718 Take 1 Tablet(s) Oral QD 03/07/20 20 021 Inactive Zetia 10 mg tablet RxNorm: 131189 Take 1 Tablet(s) Oral QD 03/07/20 20 Inactive Lyrica 50 mg capsule RxNorm: 280963 Take 1 Capsule(s) Oral QAM every morning 02/15/20 20 Inactive Lyrica 100 mg capsule RxNorm: 039768 Take 1 Capsule(s) Oral QHS every night at bedtime 02/15/20 20 Inactive Lyrica 100 mg capsule RxNorm: 645435 Take 1 Capsule(s) Oral QHS every night at bedtime 02/15/20 Inactive Lyrica 50 mg capsule RxNorm: 469240 Take 1 Capsule(s) Oral QAM every morning 02/15/20 20 Inactive venlafaxine ER 75 mg capsule,extended release 24 hr RxNorm: 614128 Take 3 Capsule(s) Oral QD 06/12/19 Active polyethylene glycol 3350 17 gram/dose oral powder RxNorm: 165317 Take 17=1 capful Gram(s) Oral BID as needed mix with 4-8oz of liquid 06/12/19 Active icosapent ethyl 1 gram capsule RxNorm: 6025402 Take 2 Capsule(s) (2 gm) Oral BID with meals 10/07/19 023 Inactive Okay to dispense one 2gm tab if you have that available. metoprolol succinate ER 200 mg tablet,extended release 24 hr RxNorm: 431788 Take 1 Tablet(s) Oral QD 08/12/19 Active loperamide 2 mg capsule RxNorm: 517262 Take 1 Capsule(s) Oral QID as needed 06/12/19 Active hydralazine 50 mg tablet RxNorm: 865373 Take 1 Tablet(s) Oral QID 08/12/19 23 Active Levemir FlexTouch U-100 Insulin 100 unit/mL (3 mL) subcutaneous pen RxNorm: 598382 Inject 80 Unit(s) Subcutaneous BID 07/14/19 23 023 Inactive Novolog Flexpen U-100 Insulin aspart 100 unit/mL (3 mL) subcutaneous RxNorm: 3519694 Insert 30 Unit(s) Subcutaneous TID with meals [...] Encounter Performer Location Location Address Codes Date (12682) Home or Residence Visit Est Pt - Moderate Level, 40 mins Diagnosis: Recurrent major depressive disorder, in partial remission[ICD10: F33.41] Diagnosis: High risk medication use[ICD10: Z79.899] Sandra Clark [place] [address] [address] [address] CPT-4: 59986 09/15/2022 Plan of Care Planned Activity Notes Codes Status Date Referral: [facility] WPtel: [address], [address] [id number] Referral Records Received 09/21/2022 Patient Education: Patient M edication Summary Completed 09/15/2022 Patient Education: Influenza Vaccine Completed 09/15/2022 Appointment: Tapan Shirley WPtel: [address] [id number] [place] F/U 08/11/2022 Appointment: Tapan Shirley WPtel: [address] [id number] [place] F/U 07/14/2022 Appointment: Tapan Shirley WPtel: [address] [id number] [place] F/U 02/10/2022 Referral: [facility] WPtel: [address] [id number] [place] Referral Completed 05/28/2021 Referral: General Cardiology [...] Sister Jyotsna involved in his care cell# [phone] Guardian: Don (tapan met in person 09/01/21), now has Lexii (same group as don)Lab Schedule: * 10/06/2022 High risk medication use Tolerating current dosing of Abilify. Encouraged patient to be more active in management of mood due to potential side effects of medications related to potential metabolic side effects. Depression Denied referral offered for psychotherapy today. Encouraged patient to do activities that he is able to do instead of being dependent upon staff. This will also help him to become more active and engage in self care. Continue current medication regimen. . 09/15/2022
--- OUTSIDE RECORDS SUMMARY | 2022-11-10 00:18 | XMS_ITS | CCD ---
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 Biztalk Administrator Name Role Phone Tapan Shirley PA-C Primary Care Provider Unavailabl e Tapan Shirley PA-C Chronic Care Management Unavaila ble Summary Purpose DataExchange Insurance Providers Payer name Policy type / Coverage type Covered constitution party ID Effective Begin Date Effective End Date Medicare [place] Medicare Part B [id number] Unknown Unknown Medicaid [place] Medicare Part B [id number] Unknown Unknown Family history Runs in the family Diagnosis Age At Onset No Known Diseases N/A Social History Social History Element Codes Description Effec tive Dates Living arrangements Unknown [facility] 09/03/[address]: 1146963 Non-Smoker / No History of Smoking 09/02/[address]: 649217661 No Alcohol Consum ption 09/02/2020 Allergies, Adverse Reactions, Alerts Substance Reaction Codes Entered Date Inactivated Date Status LISINOPRIL RxNorm: 57208 02/12/2020 No Inactive Da te Active Metformin [...] 02/10/2021 Active Coronary artery disease invo lving [place] coronary artery of [place] heart, angina presence unspecified ICD-10: I25.10 ICD-9: [...] ICD-10: M10 .30 ICD-9: 274.10 09/03/2020 Active [facility] (current) use of insulin [...] test strip hydralazine 50 mg tablet RxNorm: 949092 Take 1 Tablet(s) Oral QID 05/05/20 21 Inactive venlafaxine ER 225 mg tablet,extended release 24 hr RxNorm: 972293 Take 1 Tablet(s) Oral QD 05/05/20 Inactive isosorbide mononitrate ER 30 mg tablet,extended release 24 hr RxNorm: 314863 Take 1 Tablet(s) Oral QD 05/05/20 No Stop Date Active venlafaxine ER 225 mg tablet,extended release 24 hr RxNorm: 522142 Take 1 Tablet(s) Oral QD 05/05/20 Inactive hydralazine 50 mg tablet RxNorm: 340726 Take 1 Tablet(s) Oral QID 05/05/20 21 Inactive aspirin 81 mg tablet,delayed release RxNorm: 877529 Take 1 Tablet(s) Oral QD 03/31/20 Inactive Vitamin D2 1,250 mcg (50,000 unit) capsule RxNorm: 9496996 Take 1 Capsule(s) Oral QW once a week x 12 weeks 03/31/20 Inactive Zetia 10 mg tablet RxNorm: 600111 Take 1 Tablet(s) Oral QD 03/31/20 21 Inactive Vitamin D2 1,250 mcg (50,000 unit) capsule RxNorm: 3173044 Take 1 Capsule(s) Oral QW once a week 03/31/20 021 Inactive Zetia 10 mg tablet RxNorm: 924445 Take 1 Tablet(s) Oral QD 03/31/20 021 Inactive hydralazine 25 mg tablet RxNorm: 930430 Take 1 Tablet(s) Oral QID 03/31/20 021 Inactive hydralazine 25 mg tablet RxNorm: 983395 Take 1 Tablet(s) Oral QID 03/31/20 021 Inactive hydralazine 10 mg tablet RxNorm: 928700 Take 1 Tablet(s) Oral QID 03/03/20 021 Inactive cephalexin 500 mg tablet RxNorm: 841565 Take 1 Tablet(s) Oral QID 02/27/20 021 Inactive cephalexin 500 mg tablet RxNorm: 088171 Take 1 Tablet(s) Oral QID 02/27/20 021 Inactive lisinopril 40 mg tablet RxNorm: 341201 Take 1 Tablet(s) Oral QD 02/11/20 023 Inactive Eliquis 5 mg tablet RxNorm: 6222572 Take 1 Tablet(s) Oral BID 01/05/20 022 Inactive Eliquis 5 mg tablet RxNorm: 0736617 Take 2 Tablet(s) Oral QD 01/01/20 21 021 Inactive Lyrica 50 mg capsule RxNorm: 657861 Take 1 Capsule(s) Oral QAM every morning 12/24/19 21 021 Inactive Lyrica 100 mg capsule RxNorm: 871341 Take 1 Capsule(s) Oral QHS every night at bedtime 12/24/19 21 021 Inactive clotrimazole 1 % topical cream RxNorm: 456374 Apply to right foot and toes Topical BID 12/04/19 21 023 Inactive metoprolol succinate ER 200 mg tablet,extended release 24 hr RxNorm: 363230 Take 1 Tablet(s) Oral QD 12/04/19 21 023 Inactive ciprofloxacin 500 mg tablet RxNorm: 006318 Take 1 Tablet(s) Oral QD 11/30/19 21 021 Inactive DX ofloxacin otic drops Accu-Chek Guide test strips RxNorm: USE 1 TO CHECK GLUCOSE 4 TIMES DAILY AND NEEDED 11/15/19 21 023 Inactive Blood Glucose Test strips RxNorm: Use 1 Test Strip QID at PRN 11/05/19 21 023 Inactive E11.42 lisinopril 30 mg tablet RxNorm: 057467 Take 1 Tablet(s) Oral QD 10/30/19 021 Inactive lisinopril 20 mg tablet RxNorm: 705495 Take 1 Tablet(s) Oral QD 10/23/19 021 Inactive lisinopril 20 mg tablet RxNorm: 757795 Take 1 Tablet(s) Oral QD 10/23/19 021 Inactive lisinopril 10 mg tablet RxNorm: 901858 Take 1 Tablet(s) Oral QD 10/02/19 021 Inactive icosapent ethyl 1 gram capsule RxNorm: 8607193 Take 2 Capsule(s) (2 gm) Oral BID with meals 09/12/19 022 Inactive Okay to dispense one 2gm tab if you have that available. icosapent ethyl 1 gram capsule RxNorm: 2066157 Take 2 Capsule(s) Oral BID 09/12/19 021 Inactive Okay to dispense one 2gm tab if you have that available. amlodipine 10 mg tablet RxNorm: 307147 Take 1 Tablet(s) Oral QD 09/04/19 022 Inactive Levemir FlexTouch U-100 Insulin 100 unit/mL (3 mL) subcutaneous pen RxNorm: 500762 Inject 150 Unit(s) Subcutaneous BID 09/04/19 022 Inactive aspirin 81 mg tablet,delayed release RxNorm: 971620 Take 1 Tablet(s) Oral QD 09/04/19 21 021 Inactive venlafaxine ER 150 mg tablet,extended release 24 hr RxNorm: 641856 Take 1 Tablet(s) Oral QD 09/04/19 21 021 Inactive clotrimazole-betame thasone 1 %-0.05 % topical cream RxNorm: 706695 Apply to rash on red area on left abdomen/chest Topical BID 08/10/19 21 Inactive amlodipine 5 mg tablet RxNorm: 841554 Take 1 Tablet(s) Oral QD 07/31/19 21 Inactive cephalexin 500 mg tablet RxNorm: 386772 Take 1 Tablet(s) Oral BID BID - Twice Daily 07/31/19 21 021 Inactive Start 08/01/20 pantoprazole 40 mg tablet,delayed release RxNorm: 167312 Take 1 Tablet(s) Oral QAM every morning 07/08/19 21 022 Inactive senna 8.6 mg tablet RxNorm: 491922 Take 1 Tablet(s) Oral QD 07/08/19 Inactive Novolog Flexpen U-100 Insulin aspart 100 unit/mL (3 mL) subcutaneous RxNorm: 8085703 Administer per sliding scale Milliliter(s) Subcutaneous TID 151-200: 10 u; 201-250: 20 u; 251-300: 30 u; 301-350: 40 u; 351-400: 50 u. 07/08/19 21 022 Inactive Novolog Flexpen U-100 Insulin aspart 100 unit/mL (3 mL) subcutaneous RxNorm: 7167512 Inject 85 Unit(s) Subcutaneous TID 07/08/19 Inactive pravastatin 80 mg tablet RxNorm: 503833 Take 1 Tablet(s) Oral QHS every night at bedtime 07/08/19 022 Inactive clotrimazole 1 % topical cream RxNorm: 894296 Apply to bilateral groin areas Topical BID 07/08/19 21 022 Inactive carbamazepine 200 mg tablet RxNorm: 711845 Take 1 Tablet(s) Oral BID 07/08/19 21 022 Inactive torsemide 20 mg tablet RxNorm: 701024 Take 1 Tablet(s) Oral QD 07/08/19 21 023 Inactive clopidogrel 75 mg tablet RxNorm: 639630 Take 1 Tablet(s) Oral QD 07/08/19 21 021 Inactive Blood Glucose Test strips RxNorm: Use 1 Test Strip QID at PRN 07/08/19 21 Inactive E11.42 lisinopril 5 mg tablet RxNorm: 063372 Take 1 Tablet(s) Oral QD 07/08/19 Inactive metoprolol succinate ER 200 mg tablet,extended release 24 hr RxNorm: 150220 Take 1 Tablet(s) Oral QD 07/08/19 Inactive Vitamin D3 25 mcg (1,000 unit) tablet RxNorm: 557856 Take 1 Tablet(s) Oral QD 07/08/19 Inactive isosorbide dinitrate 30 mg tablet RxNorm: 718344 Take 1 Tablet(s) Oral QD 07/08/19 021 Inactive Levemir FlexTouch U-100 Insulin 100 unit/mL (3 mL) subcutaneous pen RxNorm: 717113 Inject 140 Unit(s) Subcutaneous BID 07/08/19 Inactive venlafaxine 75 mg tablet RxNorm: 806506 Take 1 Tablet(s) Oral QD 07/08/19 Inactive acetaminophen 500 mg tablet RxNorm: 173224 Take 1 Tablet(s) Oral TID as needed for headache 06/18/19 Inactive acetaminophen 500 mg tablet RxNorm: 912101 Take 1 Tablet(s) Oral TID as needed for headache 06/18/19 021 Inactive Lyrica 100 mg capsule RxNorm: 296192 Take 1 Capsule(s) Oral QHS every night at bedtime 06/11/19 021 Inactive Lyrica 50 mg capsule RxNorm: 331585 Take 1 Capsule(s) Oral QAM every morning 06/10/19 021 Inactive hydrocortisone 2.5 % topical cream RxNorm: 857389 Apply to bilateral groin creases Topical BID 05/15/20 021 Inactive clotrimazole 1 % topical cream RxNorm: 278703 Apply to bilateral groin areas Topical BID 05/15/20 20 021 Inactive Lyrica 50 mg capsule RxNorm: 903215 Take 1 Capsule(s) Oral QAM every morning 05/14/20 020 Inactive Lyrica 100 mg capsule RxNorm: 721495 Take 1 Capsule(s) Oral QHS every night [...] Inactive Nystop 100,000 unit/gram topical powder RxNorm: 410985 Apply to abd folds, under breasts and L side of groin Topical BID x 14 days, then BID PRN 04/08/20 20 021 Inactive dx: yeast dermatitis Lyrica 100 mg capsule RxNorm: 558637 Take 1 Capsule(s) Oral QHS every night at bedtime 03/13/20 20 Inactive Lyrica 50 mg capsule RxNorm: 195615 Take 1 Capsule(s) Oral QAM every morning 03/13/20 20 Inactive ketoconazole 2 % shampoo RxNorm: 581762 Apply Topical two times a week with showers 03/11/20 20 Inactive cholecalciferol (vitamin D3) 50 mcg (2,000 unit) tablet RxNorm: 675232 Take 1 Tablet(s) Oral QD 03/11/20 20 Inactive Zetia 10 mg tablet RxNorm: 232186 Take 1 Tablet(s) Oral QD 03/07/20 20 021 Inactive Zetia 10 mg tablet RxNorm: 038122 Take 1 Tablet(s) Oral QD 03/07/20 20 Inactive Lyrica 50 mg capsule RxNorm: 084767 Take 1 Capsule(s) Oral QAM every morning 02/15/20 20 Inactive Lyrica 100 mg capsule RxNorm: 247072 Take 1 Capsule(s) Oral QHS every night at bedtime 02/15/20 20 Inactive Lyrica 100 mg capsule RxNorm: 179484 Take 1 Capsule(s) Oral QHS every night at bedtime 02/15/20 Inactive Lyrica 50 mg capsule RxNorm: 525566 Take 1 Capsule(s) Oral QAM every morning [...] Referral: [facility] WPtel: [address] , [address] [id number] [place] Referral Records Received 09/21/2022 Referral: [facility] WPtel: [address] [id number] [place] Referral Completed 05/28/2021 Referral: General Cardiology Referral Complet ed 01/03/2021 Referral: General Psychologist Referral Close d Instructions Comment Date Leonid is a Male being seen living at [facility]. Initial BPS visit 01/2020. PMHx including DMII, CAD w/ 5 stents, Depression, Seizure Disorder and CKD stage 3. He moved into [facility] in 12/2019 but after a hospitalization 05/2021 he moved to the [facility] to have closer nursing attention. Sister Jyotsna involved in his care cell# [phone] Guardian: Don (tapan met in person 09/01/21), now has Lexii (same group as don)Lab Schedule: * 10/06/2022
--- OUTSIDE RECORDS SUMMARY | 2022-11-10 00:19 | XMS_ITS | CCD ---
Author Name Tapan Shirley PA-C Address [address] [place] [address] Phone Organization [facility] Phone Care Team Providers Care Fish Bait Processing Supervisor Name Role Phone Tapan Shirley PA-C Primary Care Provider Unavailabl e Tapan Shirley PA-C Chronic Care Management Unavaila ble Summary Purpose DataExchange Insurance Providers Payer name Policy type / Coverage type Covered alliance party ID Effective Begin Date Effective End Date Medicare [place] Medicare Part B [id number] Unknown Unknown Medicaid [place] Medicare Part B [id number] Unknown Unknown Family history Runs in the family Diagnosis Age At Onset No Known Diseases N/A Social History Social History Element Codes Description Effec tive Dates Living arrangements Unknown [facility] 09/03/[address]: 7751970 Non-Smoker / No History of Smoking 09/02/[address]: 519524972 No Alcohol Consum ption 09/02/2020 Allergies, Adverse Reactions, Alerts Substance Reaction Codes Entered Date Inactivated Date Status LISINOPRIL RxNorm: 35346 02/12/2020 No Inactive Da te Active Metformin [...] 02/10/2021 Active Coronary artery disease invo lving [place] coronary artery of [place] heart, angina presence unspecified ICD-10: I25.10 ICD-9: [...] test strip hydralazine 50 mg tablet RxNorm: 054775 Take 1 Tablet(s) Oral QID 05/05/20 21 022 Inactive isosorbide mononitrate ER 30 mg tablet,extended release 24 hr RxNorm: 634118 Take 1 Tablet(s) Oral QD 05/05/20 No Stop Date Active venlafaxine ER 225 mg tablet,extended release 24 hr RxNorm: 610078 Take 1 Tablet(s) Oral QD 05/05/20 21 021 Inactive venlafaxine ER 225 mg tablet,extended release 24 hr RxNorm: 613662 Take 1 Tablet(s) Oral QD 05/05/20 21 022 Inactive hydralazine 50 mg tablet RxNorm: 667237 Take 1 Tablet(s) Oral QID 05/05/20 21 021 Inactive aspirin 81 mg tablet,delayed release RxNorm: 747405 Take 1 Tablet(s) Oral QD 03/31/20 21 022 Inactive Vitamin D2 1,250 mcg (50,000 unit) capsule RxNorm: 8740571 Take 1 Capsule(s) Oral QW once a week x 12 weeks 03/31/20 21 022 Inactive Zetia 10 mg tablet RxNorm: 606037 Take 1 Tablet(s) Oral QD 03/31/20 022 Inactive Vitamin D2 1,250 mcg (50,000 unit) capsule RxNorm: 2648898 Take 1 Capsule(s) Oral QW once a week 03/31/20 Inactive Zetia 10 mg tablet RxNorm: 870887 Take 1 Tablet(s) Oral QD 03/31/20 Inactive hydralazine 25 mg tablet RxNorm: 738130 Take 1 Tablet(s) Oral QID 03/31/20 021 Inactive hydralazine 25 mg tablet RxNorm: 562455 Take 1 Tablet(s) Oral QID 03/31/20 Inactive hydralazine 10 mg tablet RxNorm: 287126 Take 1 Tablet(s) Oral QID 03/03/20 021 Inactive cephalexin 500 mg tablet RxNorm: 453542 Take 1 Tablet(s) Oral QID 02/27/20 021 Inactive cephalexin 500 mg tablet RxNorm: 981404 Take 1 Tablet(s) Oral QID 02/27/20 021 Inactive lisinopril 40 mg tablet RxNorm: 517319 Take 1 Tablet(s) Oral QD 02/11/20 023 Inactive Eliquis 5 mg tablet RxNorm: 0858157 Take 1 Tablet(s) Oral BID 01/05/20 022 Inactive Eliquis 5 mg tablet RxNorm: 4576037 Take 2 Tablet(s) Oral QD 01/01/20 21 021 Inactive Lyrica 50 mg capsule RxNorm: 750169 Take 1 Capsule(s) Oral QAM every morning 12/24/19 021 Inactive Lyrica 100 mg capsule RxNorm: 177165 Take 1 Capsule(s) Oral QHS every night at bedtime 12/24/19 21 021 Inactive clotrimazole 1 % topical cream RxNorm: 352541 Apply to right foot and toes Topical BID 12/04/19 21 023 Inactive metoprolol succinate ER 200 mg tablet,extended release 24 hr RxNorm: 761986 Take 1 Tablet(s) Oral QD 12/04/19 023 Inactive ciprofloxacin 500 mg tablet RxNorm: 445639 Take 1 Tablet(s) Oral QD 11/30/19 021 Inactive DX ofloxacin otic drops Accu-Chek Guide test strips RxNorm: USE 1 TO CHECK GLUCOSE 4 TIMES DAILY AND NEEDED 11/15/19 21 023 Inactive Blood Glucose Test strips RxNorm: Use 1 Test Strip QID at PRN 11/05/19 21 023 Inactive E11.42 lisinopril 30 mg tablet RxNorm: 410911 Take 1 Tablet(s) Oral QD 10/30/19 021 Inactive lisinopril 20 mg tablet RxNorm: 107450 Take 1 Tablet(s) Oral QD 10/23/19 021 Inactive lisinopril 20 mg tablet RxNorm: 991128 Take 1 Tablet(s) Oral QD 10/23/19 021 Inactive lisinopril 10 mg tablet RxNorm: 494173 Take 1 Tablet(s) Oral QD 10/02/19 021 Inactive icosapent ethyl 1 gram capsule RxNorm: 4848183 Take 2 Capsule(s) (2 gm) Oral BID with meals 09/12/19 022 Inactive Okay to dispense one 2gm tab if you have that available. icosapent ethyl 1 gram capsule RxNorm: 5803920 Take 2 Capsule(s) Oral BID 09/12/19 021 Inactive Okay to dispense one 2gm tab if you have that available. amlodipine 10 mg tablet RxNorm: 275242 Take 1 Tablet(s) Oral QD 09/04/19 022 Inactive aspirin 81 mg tablet,delayed release RxNorm: 301453 Take 1 Tablet(s) Oral QD 09/04/19 21 021 Inactive Levemir FlexTouch U-100 Insulin 100 unit/mL (3 mL) subcutaneous pen RxNorm: 742758 Inject 150 Unit(s) Subcutaneous BID 09/04/19 21 022 Inactive venlafaxine ER 150 mg tablet,extended release 24 hr RxNorm: 152095 Take 1 Tablet(s) Oral QD 09/04/19 21 021 Inactive clotrimazole-betame thasone 1 %-0.05 % topical cream RxNorm: 152461 Apply to rash on red area on left abdomen/chest Topical BID 08/10/19 21 021 Inactive amlodipine 5 mg tablet RxNorm: 857558 Take 1 Tablet(s) Oral QD 07/31/19 21 021 Inactive cephalexin 500 mg tablet RxNorm: 780446 Take 1 Tablet(s) Oral BID BID - Twice Daily 07/31/19 21 021 Inactive Start 08/01/20 pantoprazole 40 mg tablet,delayed release RxNorm: 108233 Take 1 Tablet(s) Oral QAM every morning 07/08/19 022 Inactive senna 8.6 mg tablet RxNorm: 765029 Take 1 Tablet(s) Oral QD 07/08/19 21 022 Inactive pravastatin 80 mg tablet RxNorm: 720877 Take 1 Tablet(s) Oral QHS every night at bedtime 07/08/19 022 Inactive clotrimazole 1 % topical cream RxNorm: 299309 Apply to bilateral groin areas Topical BID 07/08/19 21 022 Inactive carbamazepine 200 mg tablet RxNorm: 999528 Take 1 Tablet(s) Oral BID 07/08/19 21 022 Inactive torsemide 20 mg tablet RxNorm: 247153 Take 1 Tablet(s) Oral QD 07/08/19 21 023 Inactive clopidogrel 75 mg tablet RxNorm: 123450 Take 1 Tablet(s) Oral QD 07/08/19 21 021 Inactive Blood Glucose Test strips RxNorm: Use 1 Test Strip QID at PRN 07/08/19 21 021 Inactive E11.42 Novolog Flexpen U-100 Insulin aspart 100 unit/mL (3 mL) subcutaneous RxNorm: 0330518 Administer per sliding scale Milliliter(s) Subcutaneous TID 151-200: 10 u; 201-250: 20 u; 251-300: 30 u; 301-350: 40 u; 351-400: 50 u. 07/08/19 21 022 Inactive lisinopril 5 mg tablet RxNorm: 976235 Take 1 Tablet(s) Oral QD 07/08/19 21 021 Inactive Novolog Flexpen U-100 Insulin aspart 100 unit/mL (3 mL) subcutaneous RxNorm: 6635436 Inject 85 Unit(s) Subcutaneous TID 07/08/19 Inactive metoprolol succinate ER 200 mg tablet,extended release 24 hr RxNorm: 907926 Take 1 Tablet(s) Oral QD 07/08/19 21 Inactive Vitamin D3 25 mcg (1,000 unit) tablet RxNorm: 529126 Take 1 Tablet(s) Oral QD 07/08/19 Inactive isosorbide dinitrate 30 mg tablet RxNorm: 016109 Take 1 Tablet(s) Oral QD 07/08/19 Inactive Levemir FlexTouch U-100 Insulin 100 unit/mL (3 mL) subcutaneous pen RxNorm: 218596 Inject 140 Unit(s) Subcutaneous BID 07/08/19 Inactive venlafaxine 75 mg tablet RxNorm: 570102 Take 1 Tablet(s) Oral QD 07/08/19 Inactive acetaminophen 500 mg tablet RxNorm: 696796 Take 1 Tablet(s) Oral TID as needed for headache 06/18/19 Inactive acetaminophen 500 mg tablet RxNorm: 079430 Take 1 Tablet(s) Oral TID as needed for headache 06/18/19 021 Inactive Lyrica 100 mg capsule RxNorm: 784278 Take 1 Capsule(s) Oral QHS every night at bedtime 06/11/19 Inactive Lyrica 50 mg capsule RxNorm: 862595 Take 1 Capsule(s) Oral QAM every morning 06/10/19 Inactive hydrocortisone 2.5 % topical cream RxNorm: 289229 Apply to bilateral groin creases Topical BID 05/15/20 20 021 Inactive clotrimazole 1 % topical cream RxNorm: 686593 Apply to bilateral groin areas Topical BID 05/15/20 20 Inactive Lyrica 50 mg capsule RxNorm: 486410 Take 1 Capsule(s) Oral QAM every morning 05/14/20 20 Inactive Lyrica 100 mg capsule RxNorm: 406282 Take 1 Capsule(s) Oral QHS every night [...] Inactive Nystop 100,000 unit/gram topical powder RxNorm: 644202 Apply to abd folds, under breasts and L side of groin Topical BID x 14 days, then BID PRN 04/08/20 20 021 Inactive dx: yeast dermatitis Lyrica 100 mg capsule RxNorm: 237166 Take 1 Capsule(s) Oral QHS every night at bedtime 03/13/20 20 Inactive Lyrica 50 mg capsule RxNorm: 801803 Take 1 Capsule(s) Oral QAM every morning 03/13/20 20 020 Inactive ketoconazole 2 % shampoo RxNorm: 034144 Apply Topical two times a week with showers 03/11/20 20 Inactive cholecalciferol (vitamin D3) 50 mcg (2,000 unit) tablet RxNorm: 509602 Take 1 Tablet(s) Oral QD 10/26/ Inactive Zetia 10 mg tablet RxNorm: 921237 Take 1 Tablet(s) Oral QD 03/07/20 Inactive Zetia 10 mg tablet RxNorm: 623271 Take 1 Tablet(s) Oral QD 03/07/20 Inactive Lyrica 50 mg capsule RxNorm: 556088 Take 1 Capsule(s) Oral QAM every morning 02/15/20 Inactive Lyrica 100 mg capsule RxNorm: 279052 Take 1 Capsule(s) Oral QHS every night at bedtime 02/15/20 Inactive Lyrica 100 mg capsule RxNorm: 191856 Take 1 Capsule(s) Oral QHS every night at bedtime 02/15/20 Inactive Lyrica 50 mg capsule RxNorm: 115171 Take 1 Capsule(s) Oral QAM every morning 02/15/20 Inactive venlafaxine ER 75 mg capsule,extended release 24 hr RxNorm: 128745 Take 3 Capsule(s) Oral QD 06/12/19 Active polyethylene glycol 3350 17 gram/dose oral powder RxNorm: 291497 Take 17=1 capful Gram(s) Oral BID as needed mix with 4-8oz of liquid 06/12/19 Active Levemir FlexTouch U-100 Insulin 100 unit/mL (3 mL) subcutaneous pen RxNorm: 078917 Inject 80 Unit(s) Subcutaneous BID 07/14/19 23 023 Inactive loperamide 2 mg capsule RxNorm: 105321 Take 1 Capsule(s) Oral QID as needed 06/12/19 22 Active Novolog Flexpen U-100 Insulin aspart 100 unit/mL (3 mL) subcutaneous RxNorm: 7450694 Insert 30 Unit(s) Subcutaneous TID with meals [...] IM Moderna Covid-19 Vaccine (Low Dose) CPT-4: 12517 06/18/2021 ADMIN SARSCOV2 50MCG/0.25ML Moderna Booster CPT- 4: 0064A 06/18/2021 COVID-19 VACCINE HOME ADMIN CPT-4: M0201 06/2021 Reason For Visit No Reason For Visit data Plan of Care Planned Activity Notes Codes Status Date Referral: [facility] WPtel: [address] , [address] [id number] [place] Referral Records Received 09/21/2022 Patient Education: Patient M edication Summary Completed 06/18/2021 Patient Education: Influenza Vaccine Completed 06/18/2021 Referral: [facility] WPtel: [address] [id number] [place] Referral Completed 05/28/2021 Referral: General Cardiology [...] Sister Jyotsna involved in his care cell# [phone] Guardian: Don (tapan met in person 09/01/21), now has Lexii (same group as don)Lab Schedule: * 10/06/2022
--- OUTSIDE RECORDS SUMMARY | 2022-11-10 00:19 | XMS_ITS | CCD ---
Author Name Tapan Shirley PA-C Address [address] [facility] [address] [place] [address] Phone Organization [facility] Phone Care Team Providers Care Carpet Renovator Name Role Phone Tapan Shirley PA-C Primary Care Provider Unavailabl e Tapan Shirley PA-C Chronic Care Management Unavaila ble Summary Purpose DataExchange Insurance Providers Payer name Policy type / Coverage type Covered alliance party ID Effective Begin Date Effective End Date Medicare [place] Medicare Part B [id number] Unknown Unknown Medicaid [place] Medicare Part B [id number] Unknown Unknown Family history Runs in the family Diagnosis Age At Onset No Known Diseases N/A Social History Social History Element Codes Description Effec tive Dates Living arrangements Unknown Fdc 09/03/[address]: 2949382 Non-Smoker / No History of Smoking 09/02/[address]: 406572774 No Alcohol Consum ption 09/02/2020 Allergies, Adverse Reactions, Alerts Substance Reaction Codes Entered Date Inactivated Date Status LISINOPRIL RxNorm: 72692 02/12/2020 No Inactive Da te Active Metformin [...] 02/10/2021 Active Coronary artery disease invo lving jackson coronary artery of jackson heart, angina presence unspecified ICD-10: I25.10 ICD-9: [...] ICD-10: M10 .30 ICD-9: 274.10 09/03/2020 Active shelter (current) use of insulin [...] test strip hydralazine 50 mg tablet RxNorm: 952197 Take 1 Tablet(s) Oral QID 05/05/20 21 022 Inactive venlafaxine ER 225 mg tablet,extended release 24 hr RxNorm: 926675 Take 1 Tablet(s) Oral QD 05/05/20 022 Inactive isosorbide mononitrate ER 30 mg tablet,extended release 24 hr RxNorm: 657743 Take 1 Tablet(s) Oral QD 05/05/20 No Stop Date Active venlafaxine ER 225 mg tablet,extended release 24 hr RxNorm: 112091 Take 1 Tablet(s) Oral QD 05/05/20 21 021 Inactive hydralazine 50 mg tablet RxNorm: 524808 Take 1 Tablet(s) Oral QID 05/05/20 21 Inactive aspirin 81 mg tablet,delayed release RxNorm: 404185 Take 1 Tablet(s) Oral QD 03/31/20 022 Inactive Vitamin D2 1,250 mcg (50,000 unit) capsule RxNorm: 9236069 Take 1 Capsule(s) Oral QW once a week x 12 weeks 03/31/20 022 Inactive Zetia 10 mg tablet RxNorm: 739288 Take 1 Tablet(s) Oral QD 03/31/20 21 022 Inactive Vitamin D2 1,250 mcg (50,000 unit) capsule RxNorm: 6968362 Take 1 Capsule(s) Oral QW once a week 03/31/20 Inactive Zetia 10 mg tablet RxNorm: 625488 Take 1 Tablet(s) Oral QD 03/31/20 Inactive hydralazine 25 mg tablet RxNorm: 199342 Take 1 Tablet(s) Oral QID 03/31/20 021 Inactive hydralazine 25 mg tablet RxNorm: 102875 Take 1 Tablet(s) Oral QID 03/31/20 021 Inactive hydralazine 10 mg tablet RxNorm: 048679 Take 1 Tablet(s) Oral QID 03/03/20 021 Inactive cephalexin 500 mg tablet RxNorm: 806976 Take 1 Tablet(s) Oral QID 02/27/20 021 Inactive cephalexin 500 mg tablet RxNorm: 198928 Take 1 Tablet(s) Oral QID 02/27/20 021 Inactive lisinopril 40 mg tablet RxNorm: 338341 Take 1 Tablet(s) Oral QD 02/11/20 023 Inactive Eliquis 5 mg tablet RxNorm: 6026437 Take 1 Tablet(s) Oral BID 01/05/20 022 Inactive Eliquis 5 mg tablet RxNorm: 1531939 Take 2 Tablet(s) Oral QD 01/01/20 021 Inactive Lyrica 50 mg capsule RxNorm: 619437 Take 1 Capsule(s) Oral QAM every morning 12/24/19 021 Inactive Lyrica 100 mg capsule RxNorm: 018726 Take 1 Capsule(s) Oral QHS every night at bedtime 12/24/19 21 021 Inactive clotrimazole 1 % topical cream RxNorm: 106303 Apply to right foot and toes Topical BID 12/04/19 21 023 Inactive metoprolol succinate ER 200 mg tablet,extended release 24 hr RxNorm: 781288 Take 1 Tablet(s) Oral QD 07/20/ 023 Inactive ciprofloxacin 500 mg tablet RxNorm: 750563 Take 1 Tablet(s) Oral QD 11/30/19 021 Inactive DX ofloxacin otic drops Accu-Chek Guide test strips RxNorm: USE 1 TO CHECK GLUCOSE 4 TIMES DAILY AND NEEDED 11/15/19 21 023 Inactive Blood Glucose Test strips RxNorm: Use 1 Test Strip QID at PRN 11/05/19 21 023 Inactive E11.42 lisinopril 30 mg tablet RxNorm: 815658 Take 1 Tablet(s) Oral QD 10/30/19 021 Inactive lisinopril 20 mg tablet RxNorm: 856415 Take 1 Tablet(s) Oral QD 10/23/19 021 Inactive lisinopril 20 mg tablet RxNorm: 461818 Take 1 Tablet(s) Oral QD 10/23/19 021 Inactive lisinopril 10 mg tablet RxNorm: 967626 Take 1 Tablet(s) Oral QD 10/02/19 021 Inactive icosapent ethyl 1 gram capsule RxNorm: 8386901 Take 2 Capsule(s) (2 gm) Oral BID with meals 09/12/19 022 Inactive Okay to dispense one 2gm tab if you have that available. icosapent ethyl 1 gram capsule RxNorm: 0530039 Take 2 Capsule(s) Oral BID 09/12/19 021 Inactive Okay to dispense one 2gm tab if you have that available. amlodipine 10 mg tablet RxNorm: 699980 Take 1 Tablet(s) Oral QD 09/04/19 022 Inactive Levemir FlexTouch U-100 Insulin 100 unit/mL (3 mL) subcutaneous pen RxNorm: 150055 Inject 150 Unit(s) Subcutaneous BID 09/04/19 022 Inactive aspirin 81 mg tablet,delayed release RxNorm: 302443 Take 1 Tablet(s) Oral QD 09/04/19 21 021 Inactive venlafaxine ER 150 mg tablet,extended release 24 hr RxNorm: 740561 Take 1 Tablet(s) Oral QD 09/04/19 Inactive clotrimazole-betame thasone 1 %-0.05 % topical cream RxNorm: 345801 Apply to rash on red area on left abdomen/chest Topical BID 08/10/19 21 Inactive amlodipine 5 mg tablet RxNorm: 577260 Take 1 Tablet(s) Oral QD 07/31/19 Inactive cephalexin 500 mg tablet RxNorm: 495240 Take 1 Tablet(s) Oral BID BID - Twice Daily 07/31/19 21 021 Inactive Start 08/01/20 pantoprazole 40 mg tablet,delayed release RxNorm: 478139 Take 1 Tablet(s) Oral QAM every morning 07/08/19 Inactive senna 8.6 mg tablet RxNorm: 910283 Take 1 Tablet(s) Oral QD 07/08/19 022 Inactive Novolog Flexpen U-100 Insulin aspart 100 unit/mL (3 mL) subcutaneous RxNorm: 9951677 Administer per sliding scale Milliliter(s) Subcutaneous TID 151-200: 10 u; 201-250: 20 u; 251-300: 30 u; 301-350: 40 u; 351-400: 50 u. 07/08/19 Inactive Novolog Flexpen U-100 Insulin aspart 100 unit/mL (3 mL) subcutaneous RxNorm: 1390744 Inject 85 Unit(s) Subcutaneous TID 07/08/19 022 Inactive pravastatin 80 mg tablet RxNorm: 710765 Take 1 Tablet(s) Oral QHS every night at bedtime 07/08/19 022 Inactive clotrimazole 1 % topical cream RxNorm: 972335 Apply to bilateral groin areas Topical BID 07/08/19 Inactive carbamazepine 200 mg tablet RxNorm: 249700 Take 1 Tablet(s) Oral BID 07/08/19 21 022 Inactive torsemide 20 mg tablet RxNorm: 745407 Take 1 Tablet(s) Oral QD 07/08/19 023 Inactive clopidogrel 75 mg tablet RxNorm: 381972 Take 1 Tablet(s) Oral QD 07/08/19 021 Inactive Blood Glucose Test strips RxNorm: Use 1 Test Strip QID at PRN 07/08/19 21 Inactive E11.42 lisinopril 5 mg tablet RxNorm: 088950 Take 1 Tablet(s) Oral QD 07/08/19 021 Inactive metoprolol succinate ER 200 mg tablet,extended release 24 hr RxNorm: 616667 Take 1 Tablet(s) Oral QD 07/08/19 21 Inactive Vitamin D3 25 mcg (1,000 unit) tablet RxNorm: 284206 Take 1 Tablet(s) Oral QD 07/08/19 Inactive isosorbide dinitrate 30 mg tablet RxNorm: 088647 Take 1 Tablet(s) Oral QD 07/08/19 Inactive Levemir FlexTouch U-100 Insulin 100 unit/mL (3 mL) subcutaneous pen RxNorm: 202666 Inject 140 Unit(s) Subcutaneous BID 07/08/19 Inactive venlafaxine 75 mg tablet RxNorm: 256993 Take 1 Tablet(s) Oral QD 07/08/19 Inactive acetaminophen 500 mg tablet RxNorm: 249738 Take 1 Tablet(s) Oral TID as needed for headache 06/18/19 Inactive acetaminophen 500 mg tablet RxNorm: 747850 Take 1 Tablet(s) Oral TID as needed for headache 06/18/19 021 Inactive Lyrica 100 mg capsule RxNorm: 091255 Take 1 Capsule(s) Oral QHS every night at bedtime 06/11/19 021 Inactive Lyrica 50 mg capsule RxNorm: 528362 Take 1 Capsule(s) Oral QAM every morning 06/10/19 Inactive hydrocortisone 2.5 % topical cream RxNorm: 021416 Apply to bilateral groin creases Topical BID 05/15/20 20 021 Inactive clotrimazole 1 % topical cream RxNorm: 575009 Apply to bilateral groin areas Topical BID 05/15/20 20 01/12/2 021 Inactive Lyrica 50 mg capsule RxNorm: 074920 Take 1 Capsule(s) Oral QAM every morning 05/14/20 20 Inactive Lyrica 100 mg capsule RxNorm: 672146 Take 1 Capsule(s) Oral QHS every night [...] Inactive Nystop 100,000 unit/gram topical powder RxNorm: 377393 Apply to abd folds, under breasts and L side of groin Topical BID x 14 days, then BID PRN 04/08/20 20 Inactive dx: yeast dermatitis Lyrica 100 mg capsule RxNorm: 303743 Take 1 Capsule(s) Oral QHS every night at bedtime 03/13/20 20 Inactive Lyrica 50 mg capsule RxNorm: 641733 Take 1 Capsule(s) Oral QAM every morning 03/13/20 20 Inactive ketoconazole 2 % shampoo RxNorm: 866433 Apply Topical two times a week with showers 03/11/20 20 Inactive cholecalciferol (vitamin D3) 50 mcg (2,000 unit) tablet RxNorm: 479631 Take 1 Tablet(s) Oral QD 03/11/20 20 Inactive Zetia 10 mg tablet RxNorm: 059363 Take 1 Tablet(s) Oral QD 03/07/20 021 Inactive Zetia 10 mg tablet RxNorm: 396223 Take 1 Tablet(s) Oral QD 03/07/20 Inactive Lyrica 50 mg capsule RxNorm: 316313 Take 1 Capsule(s) Oral QAM every morning 02/15/20 Inactive Lyrica 100 mg capsule RxNorm: 209526 Take 1 Capsule(s) Oral QHS every night at bedtime 02/15/20 Inactive Lyrica 100 mg capsule RxNorm: 369378 Take 1 Capsule(s) Oral QHS every night at bedtime 02/15/20 Inactive Lyrica 50 mg capsule RxNorm: 313437 Take 1 Capsule(s) Oral QAM every morning 02/15/20 Inactive venlafaxine ER 75 mg capsule,extended release 24 hr RxNorm: 742884 Take 3 Capsule(s) Oral QD 06/12/19 Active polyethylene glycol 3350 17 gram/dose oral powder RxNorm: 056576 Take 17=1 capful Gram(s) Oral BID as needed mix with 4-8oz of liquid 06/12/19 Active Levemir FlexTouch U-100 Insulin 100 unit/mL (3 mL) subcutaneous pen RxNorm: 663794 Inject 80 Unit(s) Subcutaneous BID 07/14/19 23 023 Inactive loperamide 2 mg capsule RxNorm: 665296 Take 1 Capsule(s) Oral QID as needed 06/12/19 22 Active Novolog Flexpen U-100 Insulin aspart 100 unit/mL (3 mL) subcutaneous RxNorm: 2549211 Insert 30 Unit(s) Subcutaneous TID with meals [...] Encounter Performer Location Location Address Codes Date (03632) [facility] 14 DAY DISCH Diagnosis: Candidiasis, intertrigo[ICD10: B37.2] [...] use of insulin[ICD10: E11.42] Tapan Shirley [facility] on [address] [address] CPT-4: 01582 06/10/2021 Plan of Care Planned Activity Notes Codes Status Date Referral: [facility] WPtel: [address], [address] [id number] Referral Records Received 09/21/2022 Patient Education: Patient M edication Summary Completed 06/10/2021 Patient Education: Influenza Vaccine Completed 06/10/2021 Referral: [facility] WPtel: [address] [facility] [address] [id number] [place] Referral Completed 05/28/2021 Referral: General Cardiology [...] Sister Jyotsna involved in his care cell# [phone] Guardian: Don (tapan met in person 09/01/21), now has Lexii (same group as don)Lab Schedule: Mar-* 10/06/2022 Chronic Kidney Disease 02/2021 labs GFR stable, no changes indicated. DVT (deep venous thrombosis) Patient to remain on eliquis at least 6months since DVT (Jun 2021), then will reassess need. Suspect he'll need indefinite anticoagulation due limited mobility, DM2, obesity, hyperlipidemia, HTN. Diabetes Reviewed BP today, no changes needed. Nursing to notify provider if patient is having many readings outside of this range so their treatment can be adjusted. BGs running high, AL to schedule endo appt and or at least have BGs sent to him. Due for an a1c today as last done in Feb but suspect it was checked in hospital so will await discharge paperwork. Candidiasis, intertrigo No skin concerns today. Cellulitis 05/17/21 when in her, treated with keflex [id number]. . 06/10/2021
--- OUTSIDE RECORDS SUMMARY | 2022-11-10 00:20 | XMS_ITS | CCD ---
Author Name Tapan Shirley PA-C Address [address] [facility] [address] [place] [address] Phone Organization [facility] Phone Care Team Providers Care Thermometer Tester Name Role Phone Tapan Shirley PA-C Primary Care Provider Unavailabl e Tapan Shirley PA-C Chronic Care Management Unavaila ble Summary Purpose DataExchange Insurance Providers Payer name Policy type / Coverage type Covered constitution party ID Effective Begin Date Effective End Date Medicare [place] Medicare Part B [id number] Unknown Unknown Medicaid [place] Medicare Part B [id number] Unknown Unknown Family history Runs in the family Diagnosis Age At Onset No Known Diseases N/A Social History Social History Element Codes Description Effec tive Dates Living arrangements Unknown Long-Term 09/03/[address]: 5005060 Non-Smoker / No History of Smoking 09/02/[address]: 992106199 No Alcohol Consum ption 09/02/2020 Allergies, Adverse Reactions, Alerts Substance Reaction Codes Entered Date Inactivated Date Status LISINOPRIL RxNorm: 15097 02/12/2020 No Inactive Da te Active Metformin HCl Unknown 02/12/2020 No Inactive Cristiano e Active Problems Condition Codes Effective Dates Condition St atus Coronary artery disease invo lving tulalip coronary [...] 100 unit/mL (3 mL) subcutaneous pen RxNorm: 780601 Inject 83 Unit(s) Subcutaneous BID 07/08/19 22 [...] test strip hydralazine 50 mg tablet RxNorm: 002641 Take 1 Tablet(s) Oral QID 05/05/20 21 022 Inactive isosorbide mononitrate ER 30 mg tablet,extended release 24 hr RxNorm: 672632 Take 1 Tablet(s) Oral QD 05/05/20 No Stop Date Active venlafaxine ER 225 mg tablet,extended release 24 hr RxNorm: 863469 Take 1 Tablet(s) Oral QD 05/05/20 21 021 Inactive venlafaxine ER 225 mg tablet,extended release 24 hr RxNorm: 167802 Take 1 Tablet(s) Oral QD 05/05/20 21 022 Inactive hydralazine 50 mg tablet RxNorm: 226356 Take 1 Tablet(s) Oral QID 05/05/20 21 021 Inactive aspirin 81 mg tablet,delayed release RxNorm: 766817 Take 1 Tablet(s) Oral QD 03/31/20 21 022 Inactive Vitamin D2 1,250 mcg (50,000 unit) capsule RxNorm: 5389280 Take 1 Capsule(s) Oral QW once a week x 12 weeks 03/31/20 Inactive Zetia 10 mg tablet RxNorm: 870785 Take 1 Tablet(s) Oral QD 03/31/20 Inactive Vitamin D2 1,250 mcg (50,000 unit) capsule RxNorm: 2510838 Take 1 Capsule(s) Oral QW once a week 03/31/20 Inactive Zetia 10 mg tablet RxNorm: 039154 Take 1 Tablet(s) Oral QD 03/31/20 Inactive hydralazine 25 mg tablet RxNorm: 601003 Take 1 Tablet(s) Oral QID 03/31/20 Inactive hydralazine 25 mg tablet RxNorm: 271248 Take 1 Tablet(s) Oral QID 03/31/20 021 Inactive hydralazine 10 mg tablet RxNorm: 804856 Take 1 Tablet(s) Oral QID 03/03/20 021 Inactive cephalexin 500 mg tablet RxNorm: 014071 Take 1 Tablet(s) Oral QID 02/27/20 021 Inactive cephalexin 500 mg tablet RxNorm: 420601 Take 1 Tablet(s) Oral QID 02/27/20 021 Inactive lisinopril 40 mg tablet RxNorm: 607444 Take 1 Tablet(s) Oral QD 02/11/20 023 Inactive Eliquis 5 mg tablet RxNorm: 8594093 Take 1 Tablet(s) Oral BID 01/05/20 022 Inactive Eliquis 5 mg tablet RxNorm: 3195131 Take 2 Tablet(s) Oral QD 01/01/20 021 Inactive Lyrica 50 mg capsule RxNorm: 522219 Take 1 Capsule(s) Oral QAM every morning 12/24/19 021 Inactive Lyrica 100 mg capsule RxNorm: 113202 Take 1 Capsule(s) Oral QHS every night at bedtime 12/24/19 021 Inactive clotrimazole 1 % topical cream RxNorm: 409802 Apply to right foot and toes Topical BID 12/04/19 21 023 Inactive metoprolol succinate ER 200 mg tablet,extended release 24 hr RxNorm: 468514 Take 1 Tablet(s) Oral QD 12/04/19 023 Inactive ciprofloxacin 500 mg tablet RxNorm: 407998 Take 1 Tablet(s) Oral QD 11/30/19 021 Inactive DX ofloxacin otic drops Accu-Chek Guide test strips RxNorm: USE 1 TO CHECK GLUCOSE 4 TIMES DAILY AND NEEDED 11/15/19 21 023 Inactive Blood Glucose Test strips RxNorm: Use 1 Test Strip QID at PRN 11/05/19 21 023 Inactive E11.42 lisinopril 30 mg tablet RxNorm: 768408 Take 1 Tablet(s) Oral QD 10/30/19 021 Inactive lisinopril 20 mg tablet RxNorm: 711425 Take 1 Tablet(s) Oral QD 10/23/19 021 Inactive lisinopril 20 mg tablet RxNorm: 040348 Take 1 Tablet(s) Oral QD 10/23/19 021 Inactive lisinopril 10 mg tablet RxNorm: 607739 Take 1 Tablet(s) Oral QD 10/02/19 021 Inactive icosapent ethyl 1 gram capsule RxNorm: 8275982 Take 2 Capsule(s) (2 gm) Oral BID with meals 09/12/19 022 Inactive Okay to dispense one 2gm tab if you have that available. icosapent ethyl 1 gram capsule RxNorm: 8069180 Take 2 Capsule(s) Oral BID 09/12/19 21 021 Inactive Okay to dispense one 2gm tab if you have that available. amlodipine 10 mg tablet RxNorm: 605432 Take 1 Tablet(s) Oral QD 09/04/19 21 022 Inactive aspirin 81 mg tablet,delayed release RxNorm: 150681 Take 1 Tablet(s) Oral QD 09/04/19 21 021 Inactive Levemir FlexTouch U-100 Insulin 100 unit/mL (3 mL) subcutaneous pen RxNorm: 630997 Inject 150 Unit(s) Subcutaneous BID 09/04/19 21 022 Inactive venlafaxine ER 150 mg tablet,extended release 24 hr RxNorm: 792637 Take 1 Tablet(s) Oral QD 09/04/19 21 021 Inactive clotrimazole-betame thasone 1 %-0.05 % topical cream RxNorm: 730165 Apply to rash on red area on left abdomen/chest Topical BID 08/10/19 21 021 Inactive amlodipine 5 mg tablet RxNorm: 664485 Take 1 Tablet(s) Oral QD 07/31/19 Inactive cephalexin 500 mg tablet RxNorm: 367400 Take 1 Tablet(s) Oral BID BID - Twice Daily 07/31/19 021 Inactive Start 08/01/20 pantoprazole 40 mg tablet,delayed release RxNorm: 699673 Take 1 Tablet(s) Oral QAM every morning 07/08/19 022 Inactive senna 8.6 mg tablet RxNorm: 361319 Take 1 Tablet(s) Oral QD 07/08/19 022 Inactive pravastatin 80 mg tablet RxNorm: 761914 Take 1 Tablet(s) Oral QHS every night at bedtime 07/08/19 022 Inactive clotrimazole 1 % topical cream RxNorm: 332831 Apply to bilateral groin areas Topical BID 07/08/19 21 022 Inactive carbamazepine 200 mg tablet RxNorm: 517942 Take 1 Tablet(s) Oral BID 07/08/19 21 022 Inactive torsemide 20 mg tablet RxNorm: 678793 Take 1 Tablet(s) Oral QD 07/08/19 21 023 Inactive clopidogrel 75 mg tablet RxNorm: 775726 Take 1 Tablet(s) Oral QD 07/08/19 21 021 Inactive Blood Glucose Test strips RxNorm: Use 1 Test Strip QID at PRN 07/08/19 21 021 Inactive E11.42 Novolog Flexpen U-100 Insulin aspart 100 unit/mL (3 mL) subcutaneous RxNorm: 8079077 Administer per sliding scale Milliliter(s) Subcutaneous TID 151-200: 10 u; 201-250: 20 u; 251-300: 30 u; 301-350: 40 u; 351-400: 50 u. 07/08/19 022 Inactive lisinopril 5 mg tablet RxNorm: 488711 Take 1 Tablet(s) Oral QD 07/08/19 21 021 Inactive Novolog Flexpen U-100 Insulin aspart 100 unit/mL (3 mL) subcutaneous RxNorm: 3867542 Inject 85 Unit(s) Subcutaneous TID 07/08/19 Inactive metoprolol succinate ER 200 mg tablet,extended release 24 hr RxNorm: 842779 Take 1 Tablet(s) Oral QD 07/08/19 021 Inactive Vitamin D3 25 mcg (1,000 unit) tablet RxNorm: 098245 Take 1 Tablet(s) Oral QD 07/08/19 021 Inactive isosorbide dinitrate 30 mg tablet RxNorm: 119028 Take 1 Tablet(s) Oral QD 07/08/19 021 Inactive Levemir FlexTouch U-100 Insulin 100 unit/mL (3 mL) subcutaneous pen RxNorm: 645575 Inject 140 Unit(s) Subcutaneous BID 07/08/19 021 Inactive venlafaxine 75 mg tablet RxNorm: 736280 Take 1 Tablet(s) Oral QD 07/08/19 Inactive acetaminophen 500 mg tablet RxNorm: 968633 Take 1 Tablet(s) Oral TID as needed for headache 06/18/19 021 Inactive acetaminophen 500 mg tablet RxNorm: 511288 Take 1 Tablet(s) Oral TID as needed for headache 06/18/19 Inactive Lyrica 100 mg capsule RxNorm: 031432 Take 1 Capsule(s) Oral QHS every night at bedtime 06/11/19 021 Inactive Lyrica 50 mg capsule RxNorm: 550115 Take 1 Capsule(s) Oral QAM every morning 06/10/1906 06/26/2 021 Inactive hydrocortisone 2.5 % topical cream RxNorm: 309676 Apply to bilateral groin creases Topical BID 05/15/20 20 021 Inactive clotrimazole 1 % topical cream RxNorm: 050275 Apply to bilateral groin areas Topical BID 05/15/20 20 021 Inactive Lyrica 50 mg capsule RxNorm: 150819 Take 1 Capsule(s) Oral QAM every morning 05/14/20 20 020 Inactive Lyrica 100 mg capsule RxNorm: 906383 Take 1 Capsule(s) Oral QHS every night [...] Inactive Nystop 100,000 unit/gram topical powder RxNorm: 490778 Apply to abd folds, under breasts and L side of groin Topical BID x 14 days, then BID PRN 04/08/20 20 021 Inactive dx: yeast dermatitis Lyrica 100 mg capsule RxNorm: 174598 Take 1 Capsule(s) Oral QHS every night at bedtime 03/13/20 20 020 Inactive Lyrica 50 mg capsule RxNorm: 719349 Take 1 Capsule(s) Oral QAM every morning 03/13/20 20 020 Inactive ketoconazole 2 % shampoo RxNorm: 436552 Apply Topical two times a week with showers 03/11/20 Inactive cholecalciferol (vitamin D3) 50 mcg (2,000 unit) tablet RxNorm: 426425 Take 1 Tablet(s) Oral QD 03/11/20 Inactive Zetia 10 mg tablet RxNorm: 367248 Take 1 Tablet(s) Oral QD 03/07/20 Inactive Zetia 10 mg tablet RxNorm: 738088 Take 1 Tablet(s) Oral QD 03/07/20 Inactive Lyrica 50 mg capsule RxNorm: 014317 Take 1 Capsule(s) Oral QAM every morning 02/15/20 Inactive Lyrica 100 mg capsule RxNorm: 797638 Take 1 Capsule(s) Oral QHS every night at bedtime 02/15/20 Inactive Lyrica 100 mg capsule RxNorm: 164700 Take 1 Capsule(s) Oral QHS every night at bedtime 02/15/20 Inactive Lyrica 50 mg capsule RxNorm: 871671 Take 1 Capsule(s) Oral QAM every morning 02/15/20 Inactive venlafaxine ER 75 mg capsule,extended release 24 hr RxNorm: 737015 Take 3 Capsule(s) Oral QD 06/12/19 Active polyethylene glycol 3350 17 gram/dose oral powder RxNorm: 487934 Take 17=1 capful Gram(s) Oral BID as needed mix with 4-8oz of liquid 06/12/19 Active Levemir FlexTouch U-100 Insulin 100 unit/mL (3 mL) subcutaneous pen RxNorm: 126006 Inject 80 Unit(s) Subcutaneous BID 07/14/19 23 023 Inactive loperamide 2 mg capsule RxNorm: 297473 Take 1 Capsule(s) Oral QID as needed 06/12/19 Active Novolog Flexpen U-100 Insulin aspart 100 unit/mL (3 mL) subcutaneous RxNorm: 9710062 Insert 30 Unit(s) Subcutaneous TID with meals [...] Encounter Performer Location Location Address Codes Date (24943) DOMICIL VISIT EST PAT Diagnosis: Type 2 diabetes mellitus with diabetic polyneuropathy, with long-term current use of insulin[ICD10: E11.42] Diagnosis: Hyperlipidemia associated with type 2 diabetes mellitus[ICD10: E11.69] Diagnosis: Hypertension associated with diabetes[ICD10: E11.59] Diagnosis: Stage 2 chronic 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[ICD10: E11.22] Diagnosis: Coronary artery 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 WPtel: [address], [address] [id number] [place] Referral Records Received 09/21/2022 Patient Education: Patient M edication Summary Completed 07/08/2021 Patient Education: Influenza Vaccine Completed 07/08/2021 Referral: [facility] [address]: [address] [id number] [place] Referral Completed 05/28/2021 Referral: General Cardiology [...] a hospitalization 05/2021 he moved to [facility] to have closer nursing attention. Sister Jyotsna involved in his care cell# [phone] Guardian: Don (tapan met in person 09/01/21), now has Lexii (same group as don)Lab Schedule: * 10/06/2022 Ischemic Heart Disease Should be following closely with but refusing to see any specialist while living at this home. Diabetes refuses to see endo until he gets back into his home in [place] but metromobility won't pu there so advising nursing set up a telehealth appt. Since BGs are in the 300s, will increase levemir from 80units BID to 83units BID. Continue sliding scale. DVT (deep venous thrombosis) For now, continue anticoagulation due limited mobility, DM2, obesity, hyperlipidemia, HTN. Epilepsy Will monitor carbamazepine levels with routine labs. . 07/08/2021
--- OUTSIDE RECORDS SUMMARY | 2022-11-10 00:20 | XMS_ITS | CCD ---
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 Bead Flipper Name Role Phone Tapan Shirley PA-C Primary Care Provider Unavailabl e Tapan Shirley PA-C Chronic Care Management Unavaila ble Summary Purpose DataExchange Insurance Providers Payer name Policy type / Coverage type Covered democrat ID Effective Begin Date Effective End Date Medicare [place] Medicare Part B [id number] Unknown Unknown Medicaid [place] Medicare Part [place] [id number] Unknown Unknown Family history Runs in the family Diagnosis Age At Onset No Known Diseases N/A Social History Social History Element Codes Description Effec tive Dates Living arrangements Unknown Jail 09/03/[address]: 5298738 Non-Smoker / No History of Smoking 09/02/[address]: 876742397 No Alcohol Consum ption 09/02/2020 Allergies, Adverse Reactions, Alerts Substance Reaction Codes Entered Date Inactivated Date Status LISINOPRIL RxNorm: 11765 02/12/2020 No Inactive Da te Active Metformin HCl Unknown 02/12/2020 No Inactive Cristiano e Active Problems Condition Codes Effective Dates Condition St atus Coronary artery disease invo lving [place] coronary artery of [place] heart, angina presence unspecified ICD-10: I25.10 ICD-9: [...] ICD-10: M10 .30 ICD-9: 274.10 09/03/2020 Active assisted (current) use of insulin ICD-10: Z79.4 09/03 [...] Fill Instructions Lyrica 100 mg capsule RxNorm: 585022 Take 1 Capsule(s) Oral QHS every night at bedtime Take 1 capsule by mouth once daily at bedtime 07/14/19 22 022 Inactive Lyrica 50 mg capsule RxNorm: 887509 Take 1 Capsule(s) Oral QAM every morning Take 1 capsule by mouth once daily 07/14/19 22 022 Inactive Levemir FlexTouch U-100 Insulin 100 unit/mL (3 mL) subcutaneous pen RxNorm: 009018 Inject 83 Unit(s) Subcutaneous BID 07/08/19 22 [...] test strip hydralazine 50 mg tablet RxNorm: 950704 Take 1 Tablet(s) Oral QID 05/05/20 21 Inactive isosorbide mononitrate ER 30 mg tablet,extended release 24 hr RxNorm: 220624 Take 1 Tablet(s) Oral QD 05/05/20 No Stop Date Active venlafaxine ER 225 mg tablet,extended release 24 hr RxNorm: 416386 Take 1 Tablet(s) Oral QD 05/05/20 21 021 Inactive venlafaxine ER 225 mg tablet,extended release 24 hr RxNorm: 449919 Take 1 Tablet(s) Oral QD 05/05/20 21 022 Inactive hydralazine 50 mg tablet RxNorm: 362435 Take 1 Tablet(s) Oral QID 12/20 021 Inactive aspirin 81 mg tablet,delayed release RxNorm: 487241 Take 1 Tablet(s) Oral QD 03/31/20 Inactive Vitamin D2 1,250 mcg (50,000 unit) capsule RxNorm: 9985828 Take 1 Capsule(s) Oral QW once a week x 12 weeks 03/31/20 022 Inactive Zetia 10 mg tablet RxNorm: 754643 Take 1 Tablet(s) Oral QD 03/31/20 022 Inactive Vitamin D2 1,250 mcg (50,000 unit) capsule RxNorm: 3658534 Take 1 Capsule(s) Oral QW once a week 03/31/20 Inactive Zetia 10 mg tablet RxNorm: 393705 Take 1 Tablet(s) Oral QD 03/31/20 Inactive hydralazine 25 mg tablet RxNorm: 018337 Take 1 Tablet(s) Oral QID 03/31/20 021 Inactive hydralazine 25 mg tablet RxNorm: 265306 Take 1 Tablet(s) Oral QID 03/31/20 021 Inactive hydralazine 10 mg tablet RxNorm: 848283 Take 1 Tablet(s) Oral QID 03/03/20 021 Inactive cephalexin 500 mg tablet RxNorm: 129643 Take 1 Tablet(s) Oral QID 02/27/20 021 Inactive cephalexin 500 mg tablet RxNorm: 284421 Take 1 Tablet(s) Oral QID 02/27/20 021 Inactive lisinopril 40 mg tablet RxNorm: 811365 Take 1 Tablet(s) Oral QD 02/11/20 21 023 Inactive Eliquis 5 mg tablet RxNorm: 2110019 Take 1 Tablet(s) Oral BID 01/05/20 21 022 Inactive Eliquis 5 mg tablet RxNorm: 2113518 Take 2 Tablet(s) Oral QD 01/01/20 21 021 Inactive Lyrica 50 mg capsule RxNorm: 049830 Take 1 Capsule(s) Oral QAM every morning 12/24/1910/2 021 Inactive Lyrica 100 mg capsule RxNorm: 382835 Take 1 Capsule(s) Oral QHS every night at bedtime 12/24/19 21 021 Inactive clotrimazole 1 % topical cream RxNorm: 830156 Apply to right foot and toes Topical BID 12/04/19 21 023 Inactive metoprolol succinate ER 200 mg tablet,extended release 24 hr RxNorm: 591308 Take 1 Tablet(s) Oral QD 12/04/19 21 023 Inactive ciprofloxacin 500 mg tablet RxNorm: 807132 Take 1 Tablet(s) Oral QD 11/30/19 21 021 Inactive DX ofloxacin otic drops Accu-Chek Guide test strips RxNorm: USE 1 TO CHECK GLUCOSE 4 TIMES DAILY AND NEEDED 11/15/19 023 Inactive Blood Glucose Test strips RxNorm: Use 1 Test Strip QID at PRN 11/05/19 21 023 Inactive E11.42 lisinopril 30 mg tablet RxNorm: 878194 Take 1 Tablet(s) Oral QD 10/30/19 021 Inactive lisinopril 20 mg tablet RxNorm: 416614 Take 1 Tablet(s) Oral QD 10/23/19 21 021 Inactive lisinopril 20 mg tablet RxNorm: 740388 Take 1 Tablet(s) Oral QD 10/23/19 21 021 Inactive lisinopril 10 mg tablet RxNorm: 199182 Take 1 Tablet(s) Oral QD 10/02/19 21 021 Inactive icosapent ethyl 1 gram capsule RxNorm: 9070650 Take 2 Capsule(s) (2 gm) Oral BID with meals 09/12/19 022 Inactive Okay to dispense one 2gm tab if you have that available. icosapent ethyl 1 gram capsule RxNorm: 1950653 Take 2 Capsule(s) Oral BID 09/12/19 21 021 Inactive Okay to dispense one 2gm tab if you have that available. amlodipine 10 mg tablet RxNorm: 273687 Take 1 Tablet(s) Oral QD 09/04/19 022 Inactive aspirin 81 mg tablet,delayed release RxNorm: 930184 Take 1 Tablet(s) Oral QD 09/04/19 21 021 Inactive Levemir FlexTouch U-100 Insulin 100 unit/mL (3 mL) subcutaneous pen RxNorm: 040547 Inject 150 Unit(s) Subcutaneous BID 09/04/19 21 022 Inactive venlafaxine ER 150 mg tablet,extended release 24 hr RxNorm: 875159 Take 1 Tablet(s) Oral QD 09/04/19 021 Inactive clotrimazole-betame thasone 1 %-0.05 % topical cream RxNorm: 720956 Apply to rash on red area on left abdomen/chest Topical BID 08/10/19 21 021 Inactive amlodipine 5 mg tablet RxNorm: 801961 Take 1 Tablet(s) Oral QD 07/31/19 Inactive cephalexin 500 mg tablet RxNorm: 378013 Take 1 Tablet(s) Oral BID BID - Twice Daily 07/31/19 021 Inactive Start 08/01/20 pantoprazole 40 mg tablet,delayed release RxNorm: 876141 Take 1 Tablet(s) Oral QAM every morning 07/08/19 022 Inactive senna 8.6 mg tablet RxNorm: 710887 Take 1 Tablet(s) Oral QD 07/08/19 022 Inactive pravastatin 80 mg tablet RxNorm: 244435 Take 1 Tablet(s) Oral QHS every night at bedtime 07/08/19 022 Inactive clotrimazole 1 % topical cream RxNorm: 508001 Apply to bilateral groin areas Topical BID 07/08/19 21 022 Inactive carbamazepine 200 mg tablet RxNorm: 589487 Take 1 Tablet(s) Oral BID 07/08/19 21 022 Inactive torsemide 20 mg tablet RxNorm: 677342 Take 1 Tablet(s) Oral QD 07/08/19 21 023 Inactive clopidogrel 75 mg tablet RxNorm: 219523 Take 1 Tablet(s) Oral QD 07/08/19 21 021 Inactive Blood Glucose Test strips RxNorm: Use 1 Test Strip QID at PRN 07/08/19 21 Inactive E11.42 Novolog Flexpen U-100 Insulin aspart 100 unit/mL (3 mL) subcutaneous RxNorm: 0745411 Administer per sliding scale Milliliter(s) Subcutaneous TID 151-200: 10 u; 201-250: 20 u; 251-300: 30 u; 301-350: 40 u; 351-400: 50 u. 07/08/19 21 022 Inactive lisinopril 5 mg tablet RxNorm: 610913 Take 1 Tablet(s) Oral QD 07/08/19 21 Inactive Novolog Flexpen U-100 Insulin aspart 100 unit/mL (3 mL) subcutaneous RxNorm: 2685557 Inject 85 Unit(s) Subcutaneous TID 07/08/19 Inactive metoprolol succinate ER 200 mg tablet,extended release 24 hr RxNorm: 289479 Take 1 Tablet(s) Oral QD 07/08/19 21 021 Inactive Vitamin D3 25 mcg (1,000 unit) tablet RxNorm: 490293 Take 1 Tablet(s) Oral QD 07/08/19 021 Inactive isosorbide dinitrate 30 mg tablet RxNorm: 200505 Take 1 Tablet(s) Oral QD 07/08/19 021 Inactive Levemir FlexTouch U-100 Insulin 100 unit/mL (3 mL) subcutaneous pen RxNorm: 799066 Inject 140 Unit(s) Subcutaneous BID 07/08/19 021 Inactive venlafaxine 75 mg tablet RxNorm: 089710 Take 1 Tablet(s) Oral QD 07/08/19 Inactive acetaminophen 500 mg tablet RxNorm: 401581 Take 1 Tablet(s) Oral TID as needed for headache 06/18/19 21 Inactive acetaminophen 500 mg tablet RxNorm: 548896 Take 1 Tablet(s) Oral TID as needed for headache 06/18/19 21 021 Inactive Lyrica 100 mg capsule RxNorm: 786200 Take 1 Capsule(s) Oral QHS every night at bedtime 06/11/19 21 021 Inactive Lyrica 50 mg capsule RxNorm: 613713 Take 1 Capsule(s) Oral QAM every morning 06/10/19 21 021 Inactive hydrocortisone 2.5 % topical cream RxNorm: 924291 Apply to bilateral groin creases Topical BID 05/15/20 20 021 Inactive clotrimazole 1 % topical cream RxNorm: 244821 Apply to bilateral groin areas Topical BID 05/15/20 20 021 Inactive Lyrica 50 mg capsule RxNorm: 050251 Take 1 Capsule(s) Oral QAM every morning 05/14/20 20 020 Inactive Lyrica 100 mg capsule RxNorm: 885959 Take 1 Capsule(s) Oral QHS every night [...] Inactive Nystop 100,000 unit/gram topical powder RxNorm: 792300 Apply to abd folds, under breasts and L side of groin Topical BID x 14 days, then BID PRN 04/08/20 20 021 Inactive dx: yeast dermatitis Lyrica 100 mg capsule RxNorm: 390134 Take 1 Capsule(s) Oral QHS every night at bedtime 03/13/20 20 020 Inactive Lyrica 50 mg capsule RxNorm: 128674 Take 1 Capsule(s) Oral QAM every morning 03/13/20 20 Inactive ketoconazole 2 % shampoo RxNorm: 702559 Apply Topical two times a week with showers 03/11/20 Inactive cholecalciferol (vitamin D3) 50 mcg (2,000 unit) tablet RxNorm: 930379 Take 1 Tablet(s) Oral QD 03/11/20 Inactive Zetia 10 mg tablet RxNorm: 827160 Take 1 Tablet(s) Oral QD 03/07/20 Inactive Zetia 10 mg tablet RxNorm: 586182 Take 1 Tablet(s) Oral QD 03/07/20 Inactive Lyrica 50 mg capsule RxNorm: 065579 Take 1 Capsule(s) Oral QAM every morning 02/15/20 Inactive Lyrica 100 mg capsule RxNorm: 181950 Take 1 Capsule(s) Oral QHS every night at bedtime 02/15/20 Inactive Lyrica 100 mg capsule RxNorm: 375400 Take 1 Capsule(s) Oral QHS every night at bedtime 02/15/20 Inactive Lyrica 50 mg capsule RxNorm: 839993 Take 1 Capsule(s) Oral QAM every morning 02/15/20 Inactive venlafaxine ER 75 mg capsule,extended release 24 hr RxNorm: 817819 Take 3 Capsule(s) Oral QD 06/12/19 Active polyethylene glycol 3350 17 gram/dose oral powder RxNorm: 749778 Take 17=1 capful Gram(s) Oral BID as needed mix with 4-8oz of liquid 06/12/19 Active Levemir FlexTouch U-100 Insulin 100 unit/mL (3 mL) subcutaneous pen RxNorm: 252366 Inject 80 Unit(s) Subcutaneous BID 07/14/19 23 023 Inactive loperamide 2 mg capsule RxNorm: 486090 Take 1 Capsule(s) Oral QID as needed 06/12/19 22 Active Novolog Flexpen U-100 Insulin aspart 100 unit/mL (3 mL) subcutaneous RxNorm: 6230159 Insert 30 Unit(s) Subcutaneous TID with meals [...] Referral: [facility] WPtel: [address], [address] [id number] [place] Referral Records Received 09/21/2022 Referral: [facility] WPtel: [address] [id number] [place] Referral Completed 05/28/2021 Referral: General Cardiology [...] Sister Jyotsna involved in his care cell# [phone] Guardian: Don (tapan met in person 09/01/21), now has Leixi (same group as don)Lab Schedule: * 10/06/2022
--- OUTSIDE RECORDS SUMMARY | 2022-11-10 00:20 | XMS_ITS | CCD ---
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 Name Role Phone Tapan Shirley PA-C Primary Care Provider Unavailabl e Tapan Shirley PA-C Chronic Care Management Unavaila ble Summary Purpose DataExchange Insurance Providers Payer name Policy type / Coverage type Covered alliance party ID Effective Begin Date Effective End Date Medicare [place] Medicare Part B [id number] Unknown Unknown Medicaid [place] Medicare [place] B [id number] Unknown Unknown Family history Runs in the family Diagnosis Age At Onset No Known Diseases N/A Social History Social History Element Codes Description Effec tive Dates Living arrangements Unknown Senior Care 09/03/[address]: 8634018 Non-Smoker / No History of Smoking 09/02/[address]: 233517973 No Alcohol Consum ption 09/02/2020 Allergies, Adverse Reactions, Alerts Substance Reaction Codes Entered Date Inactivated Date Status LISINOPRIL RxNorm: 94314 02/12/2020 No Inactive Da te Active Metformin [...] 08/04/2021 Active Coronary artery disease invo lving hoh coronary artery of [place] heart, angina presence unspecified ICD-10: I25.10 ICD-9: [...] ICD-10: M10 .30 ICD-9: 274.10 09/03/2020 Active half-way (current) use of insulin ICD-10: Z79.4 09/03 [...] 100 unit/mL (3 mL) subcutaneous pen RxNorm: 018238 Inject 86 Unit(s) Subcutaneous BID 08/05/19 22 022 Inactive d/c 83units BID Lyrica 100 mg capsule RxNorm: 021948 Take 1 Capsule(s) Oral QHS every night at bedtime Take 1 capsule by mouth once daily at bedtime 02/28/ 022 Inactive Lyrica 50 mg capsule RxNorm: 216277 Take 1 Capsule(s) Oral QAM every morning Take 1 capsule by mouth once daily 07/14/19 Inactive Levemir FlexTouch U-100 Insulin 100 unit/mL (3 mL) subcutaneous pen RxNorm: 968066 Inject 83 Unit(s) Subcutaneous BID 07/08/19 22 [...] test strip hydralazine 50 mg tablet RxNorm: 565793 Take 1 Tablet(s) Oral QID 05/05/20 022 Inactive isosorbide mononitrate ER 30 mg tablet,extended release 24 hr RxNorm: 867636 Take 1 Tablet(s) Oral QD 05/05/20 No Stop Date Active venlafaxine ER 225 mg tablet,extended release 24 hr RxNorm: 969834 Take 1 Tablet(s) Oral QD 05/05/20 Inactive venlafaxine ER 225 mg tablet,extended release 24 hr RxNorm: 234452 Take 1 Tablet(s) Oral QD 05/05/20 022 Inactive hydralazine 50 mg tablet RxNorm: 045269 Take 1 Tablet(s) Oral QID 05/05/20 Inactive aspirin 81 mg tablet,delayed release RxNorm: 002756 Take 1 Tablet(s) Oral QD 03/31/20 Inactive Vitamin D2 1,250 mcg (50,000 unit) capsule RxNorm: 5906993 Take 1 Capsule(s) Oral QW once a week x 12 weeks 03/31/20 Inactive Zetia 10 mg tablet RxNorm: 245959 Take 1 Tablet(s) Oral QD 03/31/20 Inactive Vitamin D2 1,250 mcg (50,000 unit) capsule RxNorm: 9577690 Take 1 Capsule(s) Oral QW once a week 03/31/20 Inactive Zetia 10 mg tablet RxNorm: 741208 Take 1 Tablet(s) Oral QD 03/31/20 Inactive hydralazine 25 mg tablet RxNorm: 919585 Take 1 Tablet(s) Oral QID 03/31/20 Inactive hydralazine 25 mg tablet RxNorm: 615931 Take 1 Tablet(s) Oral QID 03/31/20 Inactive hydralazine 10 mg tablet RxNorm: 529200 Take 1 Tablet(s) Oral QID 03/03/20 021 Inactive cephalexin 500 mg tablet RxNorm: 898115 Take 1 Tablet(s) Oral QID 02/27/20 021 Inactive cephalexin 500 mg tablet RxNorm: 187086 Take 1 Tablet(s) Oral QID 02/27/20 021 Inactive lisinopril 40 mg tablet RxNorm: 931362 Take 1 Tablet(s) Oral QD 02/11/20 023 Inactive Eliquis 5 mg tablet RxNorm: 5995626 Take 1 Tablet(s) Oral BID 01/05/20 21 022 Inactive Eliquis 5 mg tablet RxNorm: 7971483 Take 2 Tablet(s) Oral QD 01/01/20 21 021 Inactive Lyrica 50 mg capsule RxNorm: 825954 Take 1 Capsule(s) Oral QAM every morning 12/24/19 021 Inactive Lyrica 100 mg capsule RxNorm: 446992 Take 1 Capsule(s) Oral QHS every night at bedtime 12/24/19 021 Inactive clotrimazole 1 % topical cream RxNorm: 126735 Apply to right foot and toes Topical BID 12/04/19 21 023 Inactive metoprolol succinate ER 200 mg tablet,extended release 24 hr RxNorm: 848580 Take 1 Tablet(s) Oral QD 12/04/19 023 Inactive ciprofloxacin 500 mg tablet RxNorm: 063331 Take 1 Tablet(s) Oral QD 11/30/19 021 Inactive DX ofloxacin otic drops Accu-Chek Guide test strips RxNorm: USE 1 TO CHECK GLUCOSE 4 TIMES DAILY AND NEEDED 11/15/19 21 023 Inactive Blood Glucose Test strips RxNorm: Use 1 Test Strip QID at PRN 11/05/19 023 Inactive E11.42 lisinopril 30 mg tablet RxNorm: 934153 Take 1 Tablet(s) Oral QD 10/30/19 021 Inactive lisinopril 20 mg tablet RxNorm: 638845 Take 1 Tablet(s) Oral QD 10/23/19 021 Inactive lisinopril 20 mg tablet RxNorm: 880742 Take 1 Tablet(s) Oral QD 10/23/19 21 021 Inactive lisinopril 10 mg tablet RxNorm: 907173 Take 1 Tablet(s) Oral QD 10/02/19 21 Inactive icosapent ethyl 1 gram capsule RxNorm: 3060417 Take 2 Capsule(s) (2 gm) Oral BID with meals 09/12/19 Inactive Okay to dispense one 2gm tab if you have that available. icosapent ethyl 1 gram capsule RxNorm: 2751521 Take 2 Capsule(s) Oral BID 09/12/19 Inactive Okay to dispense one 2gm tab if you have that available. amlodipine 10 mg tablet RxNorm: 835854 Take 1 Tablet(s) Oral QD 09/04/19 Inactive aspirin 81 mg tablet,delayed release RxNorm: 619682 Take 1 Tablet(s) Oral QD 09/04/19 021 Inactive Levemir FlexTouch U-100 Insulin 100 unit/mL (3 mL) subcutaneous pen RxNorm: 227879 Inject 150 Unit(s) Subcutaneous BID 09/04/19 022 Inactive venlafaxine ER 150 mg tablet,extended release 24 hr RxNorm: 760423 Take 1 Tablet(s) Oral QD 09/04/19 Inactive clotrimazole-betame thasone 1 %-0.05 % topical cream RxNorm: 348882 Apply to rash on red area on left abdomen/chest Topical BID 08/10/19 Inactive amlodipine 5 mg tablet RxNorm: 592272 Take 1 Tablet(s) Oral QD 07/31/19 Inactive cephalexin 500 mg tablet RxNorm: 352662 Take 1 Tablet(s) Oral BID BID - Twice Daily 07/31/19 021 Inactive Start 08/01/20 pantoprazole 40 mg tablet,delayed release RxNorm: 901339 Take 1 Tablet(s) Oral QAM every morning 07/08/19 022 Inactive senna 8.6 mg tablet RxNorm: 952153 Take 1 Tablet(s) Oral QD 07/08/19 022 Inactive pravastatin 80 mg tablet RxNorm: 637540 Take 1 Tablet(s) Oral QHS every night at bedtime 07/08/19 21 022 Inactive clotrimazole 1 % topical cream RxNorm: 526241 Apply to bilateral groin areas Topical BID 07/08/19 21 022 Inactive carbamazepine 200 mg tablet RxNorm: 165002 Take 1 Tablet(s) Oral BID 07/08/19 21 022 Inactive torsemide 20 mg tablet RxNorm: 859659 Take 1 Tablet(s) Oral QD 07/08/19 21 023 Inactive clopidogrel 75 mg tablet RxNorm: 129332 Take 1 Tablet(s) Oral QD 07/08/19 021 Inactive Blood Glucose Test strips RxNorm: Use 1 Test Strip QID at PRN 07/08/19 21 Inactive E11.42 Novolog Flexpen U-100 Insulin aspart 100 unit/mL (3 mL) subcutaneous RxNorm: 4742818 Administer per sliding scale Milliliter(s) Subcutaneous TID 151-200: 10 u; 201-250: 20 u; 251-300: 30 u; 301-350: 40 u; 351-400: 50 u. 07/08/19 022 Inactive lisinopril 5 mg tablet RxNorm: 841661 Take 1 Tablet(s) Oral QD 07/08/19 021 Inactive Novolog Flexpen U-100 Insulin aspart 100 unit/mL (3 mL) subcutaneous RxNorm: 2742296 Inject 85 Unit(s) Subcutaneous TID 07/08/19 022 Inactive metoprolol succinate ER 200 mg tablet,extended release 24 hr RxNorm: 015091 Take 1 Tablet(s) Oral QD 07/08/19 21 021 Inactive Vitamin D3 25 mcg (1,000 unit) tablet RxNorm: 393105 Take 1 Tablet(s) Oral QD 07/08/19 21 021 Inactive isosorbide dinitrate 30 mg tablet RxNorm: 620753 Take 1 Tablet(s) Oral QD 07/08/19 21 021 Inactive Levemir FlexTouch U-100 Insulin 100 unit/mL (3 mL) subcutaneous pen RxNorm: 406176 Inject 140 Unit(s) Subcutaneous BID 07/08/19 21 Inactive venlafaxine 75 mg tablet RxNorm: 367660 Take 1 Tablet(s) Oral QD 07/08/19 21 Inactive acetaminophen 500 mg tablet RxNorm: 228005 Take 1 Tablet(s) Oral TID as needed for headache 06/18/19 21 Inactive acetaminophen 500 mg tablet RxNorm: 167718 Take 1 Tablet(s) Oral TID as needed for headache 06/18/19 21 Inactive Lyrica 100 mg capsule RxNorm: 897253 Take 1 Capsule(s) Oral QHS every night at bedtime 06/11/19 21 Inactive Lyrica 50 mg capsule RxNorm: 148475 Take 1 Capsule(s) Oral QAM every morning 06/10/19 21 Inactive hydrocortisone 2.5 % topical cream RxNorm: 605335 Apply to bilateral groin creases Topical BID 05/15/20 20 021 Inactive clotrimazole 1 % topical cream RxNorm: 152786 Apply to bilateral groin areas Topical BID 05/15/20 20 021 Inactive Lyrica 50 mg capsule RxNorm: 767097 Take 1 Capsule(s) Oral QAM every morning 05/14/20 20 020 Inactive Lyrica 100 mg capsule RxNorm: 103987 Take 1 Capsule(s) Oral QHS every night [...] Inactive Nystop 100,000 unit/gram topical powder RxNorm: 104374 Apply to abd folds, under breasts and L side of groin Topical BID x 14 days, then BID PRN 04/08/20 20 Inactive dx: yeast dermatitis Lyrica 100 mg capsule RxNorm: 821404 Take 1 Capsule(s) Oral QHS every night at bedtime 03/13/20 20 Inactive Lyrica 50 mg capsule RxNorm: 432938 Take 1 Capsule(s) Oral QAM every morning 03/13/20 20 Inactive ketoconazole 2 % shampoo RxNorm: 515711 Apply Topical two times a week with showers 03/11/20 20 Inactive cholecalciferol (vitamin D3) 50 mcg (2,000 unit) tablet RxNorm: 348848 Take 1 Tablet(s) Oral QD 03/11/20 20 Inactive Zetia 10 mg tablet RxNorm: 327671 Take 1 Tablet(s) Oral QD 03/07/20 20 Inactive Zetia 10 mg tablet RxNorm: 500760 Take 1 Tablet(s) Oral QD 03/07/20 20 Inactive Lyrica 50 mg capsule RxNorm: 137879 Take 1 Capsule(s) Oral QAM every morning 02/15/20 20 Inactive Lyrica 100 mg capsule RxNorm: 746494 Take 1 Capsule(s) Oral QHS every night at bedtime 02/15/20 20 Inactive Lyrica 100 mg capsule RxNorm: 322461 Take 1 Capsule(s) Oral QHS every night at bedtime 02/15/20 20 Inactive Lyrica 50 mg capsule RxNorm: 611711 Take 1 Capsule(s) Oral QAM every morning 02/15/20 20 Inactive venlafaxine ER 75 mg capsule,extended release 24 hr RxNorm: 345793 Take 3 Capsule(s) Oral QD 06/12/19 Active polyethylene glycol 3350 17 gram/dose oral powder RxNorm: 550565 Take 17=1 capful Gram(s) Oral BID as needed mix with 4-8oz of liquid 06/12/19 Active Levemir FlexTouch U-100 Insulin 100 unit/mL (3 mL) subcutaneous pen RxNorm: 525183 Inject 80 Unit(s) Subcutaneous BID 07/14/19 23 023 Inactive loperamide 2 mg capsule RxNorm: 028198 Take 1 Capsule(s) Oral QID as needed 06/12/19 22 Active Novolog Flexpen U-100 Insulin aspart 100 unit/mL (3 mL) subcutaneous RxNorm: 7959744 Insert 30 Unit(s) Subcutaneous TID with meals [...] Encounter Performer Location Location Address Codes Date (86253) DOMICIL VISIT EST PAT Diagnosis: Stage 2 chronic 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[ICD10: E11.22] Diagnosis: Hyperlipidemia associated with type 2 diabetes mellitus[ICD10: E11.69] Diagnosis: Hypertension associated with diabetes[ICD10: E11.59] Diagnosis: Type 2 diabetes mellitus with diabetic polyneuropathy, with long-term current use of insulin[ICD10: E11.42] Diagnosis: Pain of right heel[ICD10: M79.671] Diagnosis: Muscular pain[ICD10: M79.10] Tapan Shirley [facility] [address] [place] [address] CPT-4: 00325 08/04/2021 Plan of Care Planned Activity Notes Codes Status Date Referral: [facility] WPtel: [address], [address] [id number] [place] Referral Records Received 09/21/2022 Patient Education: Patient M edication Summary Completed 08/04/2021 Patient Education: Influenza Vaccine Completed 08/04/2021 Referral: [facility] WPtel: [address] [id number] [place] Referral Completed 05/28/2021 Referral: General Cardiology [...] Sister Jyotsna involved in his care cell# [phone] Guardian: Don (tapan met in person 09/01/21), now has Lexii (same group as don)Lab Schedule: * 10/06/2022 Muscular pain Suspect left sided pain is a result of moving recliner and pulling muscles. Encouraged ice, heat, and stretching. Update if symptoms worsen or new symptoms develop. Diabetes GH to set up endo appointment. BGs continue to be elevated especially in the mornings. Will start with increasing lantus to 86units BID but will need to consider increasing morning novolog, awaiting response from nursing regarding sliding scale. Pain of right heel suspect plantar fascititis complicated by peripheral neurapathy. Encourage supportive shoe and massaging foot as tolerated. . 08/04/2021
--- OUTSIDE RECORDS SUMMARY | 2022-11-10 00:21 | XMS_ITS | CCD ---
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 Door To Door Lead Generation Name Role Phone Rosalina Shirley PA-C Primary Care Provider Unavailabl e Rosalina Shirley PA-C Chronic Care Management Unavaila ble Summary Purpose DataExchange Insurance Providers Payer name Policy type / Coverage type Covered constitution party ID Effective Begin Date Effective End Date [place] Part B [id number] Unknown Unknown [place] B [id number] Unknown Unknown Family history Runs in the family Diagnosis Age At Onset No Known Diseases N/A Social History Social History Element Codes Description Effec tive Dates Living arrangements Unknown [facility] 09/03/[address]: 6214195 Non-Smoker / No History of Smoking 09/02/[address]: 454721828 No Alcohol Consum ption 09/02/2020 Allergies, Adverse Reactions, Alerts Substance Reaction Codes Entered Date Inactivated Date Status LISINOPRIL RxNorm: 16602 02/12/2020 No Inactive Da te Active Metformin [...] 08/04/2021 Active Coronary artery disease invo [place] coronary artery of [place] heart, angina presence unspecified ICD-10: I25.10 [...] ICD-10: M10 .30 ICD-9: 274.10 09/03/2020 Active [facility] (current) use of insulin [...] benzoyl peroxide 10 % topical cleanser RxNorm: 270478 Apply 1 Application Topical QD apply to face, wash rinse and dry once daily (may change to QOD if drying) 08/19/19 22 022 Inactive (%covered by insurance) #60ml refill 11 dx: acne benzoyl peroxide 10 % topical cleanser RxNorm: 894296 Apply 1 Application Topical QD apply to face, wash rinse and dry once daily (may change to QOD if drying) 08/19/19 22 022 Inactive (%covered by insurance) #60ml refill 11 dx: acne benzoyl peroxide 10 % topical cleanser RxNorm: 799840 Apply 1 Application Topical QD apply to face, wash rinse and dry once daily (may change to QOD if drying) 08/19/19 22 022 Inactive (%covered by insurance) #60ml refill 11 dx: acne Lyrica 50 mg capsule RxNorm: 563585 Take 1 Capsule(s) Oral QAM every morning Take 1 capsule by mouth once daily 08/19/19 22 022 Inactive benzoyl peroxide 10 % topical cleanser RxNorm: 332527 Apply 1 Application Topical QD apply to face, wash rinse and dry once daily (may change to QOD if drying) 08/19/19 22 022 Inactive (%covered by insurance) #60ml refill 11 dx: acne Lyrica 100 mg capsule RxNorm: 685767 Take 1 Capsule(s) Oral QHS every night at bedtime Take 1 capsule by mouth once daily at bedtime 08/19/19 22 022 Inactive Lyrica 100 mg capsule RxNorm: 536560 Take 1 Capsule(s) Oral QHS every night at bedtime Take 1 capsule by mouth once daily at bedtime 08/16/19 22 022 Inactive Lyrica 50 mg capsule RxNorm: 989125 Take 1 Capsule(s) Oral QAM every morning Take 1 capsule by mouth once daily 08/16/19 22 022 Inactive Levemir FlexTouch U-100 Insulin 100 unit/mL (3 mL) subcutaneous pen RxNorm: 421876 Inject 86 Unit(s) Subcutaneous BID 08/05/19 22 022 Inactive d/c 83units BID Lyrica 100 mg capsule RxNorm: 942407 Take 1 Capsule(s) Oral QHS every night at bedtime Take 1 capsule by mouth once daily at bedtime 07/14/19 22 022 Inactive Lyrica 50 mg capsule RxNorm: 960151 Take 1 Capsule(s) Oral QAM every morning Take 1 capsule by mouth once daily 07/14/19 22 022 Inactive Levemir FlexTouch U-100 Insulin 100 unit/mL (3 mL) subcutaneous pen RxNorm: 695606 Inject 83 Unit(s) Subcutaneous BID 02/22/ 022 Inactive d/c 80units BID Accu-Chek Guide [...] test strip hydralazine 50 mg tablet RxNorm: 602454 Take 1 Tablet(s) Oral QID 05/05/20 21 022 Inactive isosorbide mononitrate ER 30 mg tablet,extended release 24 hr RxNorm: 305256 Take 1 Tablet(s) Oral QD 05/05/20 No Stop Date Active venlafaxine ER 225 mg tablet,extended release 24 hr RxNorm: 949962 Take 1 Tablet(s) Oral QD 05/05/20 21 021 Inactive venlafaxine ER 225 mg tablet,extended release 24 hr RxNorm: 208299 Take 1 Tablet(s) Oral QD 05/05/20 022 Inactive hydralazine 50 mg tablet RxNorm: 566762 Take 1 Tablet(s) Oral QID 05/05/20 21 021 Inactive aspirin 81 mg tablet,delayed release RxNorm: 993270 Take 1 Tablet(s) Oral QD 03/31/20 022 Inactive Vitamin D2 1,250 mcg (50,000 unit) capsule RxNorm: 4920256 Take 1 Capsule(s) Oral QW once a week x 12 weeks 03/31/20 022 Inactive Zetia 10 mg tablet RxNorm: 650157 Take 1 Tablet(s) Oral QD 03/31/20 Inactive Vitamin D2 1,250 mcg (50,000 unit) capsule RxNorm: 9405157 Take 1 Capsule(s) Oral QW once a week 03/31/20 021 Inactive Zetia 10 mg tablet RxNorm: 679336 Take 1 Tablet(s) Oral QD 03/31/20 021 Inactive hydralazine 25 mg tablet RxNorm: 012661 Take 1 Tablet(s) Oral QID 03/31/20 021 Inactive hydralazine 25 mg tablet RxNorm: 707394 Take 1 Tablet(s) Oral QID 03/31/20 021 Inactive hydralazine 10 mg tablet RxNorm: 752291 Take 1 Tablet(s) Oral QID 03/03/20 021 Inactive cephalexin 500 mg tablet RxNorm: 451458 Take 1 Tablet(s) Oral QID 02/27/20 021 Inactive cephalexin 500 mg tablet RxNorm: 912241 Take 1 Tablet(s) Oral QID 02/27/20 021 Inactive lisinopril 40 mg tablet RxNorm: 581508 Take 1 Tablet(s) Oral QD 02/11/20 21 023 Inactive Eliquis 5 mg tablet RxNorm: 9766011 Take 1 Tablet(s) Oral BID 01/05/20 21 022 Inactive Eliquis 5 mg tablet RxNorm: 2137039 Take 2 Tablet(s) Oral QD 01/01/20 21 021 Inactive Lyrica 50 mg capsule RxNorm: 613502 Take 1 Capsule(s) Oral QAM every morning 12/24/19 21 021 Inactive Lyrica 100 mg capsule RxNorm: 008766 Take 1 Capsule(s) Oral QHS every night at bedtime 12/24/19 021 Inactive clotrimazole 1 % topical cream RxNorm: 089232 Apply to right foot and toes Topical BID 12/04/19 21 023 Inactive metoprolol succinate ER 200 mg tablet,extended release 24 hr RxNorm: 054624 Take 1 Tablet(s) Oral QD 12/04/19 21 023 Inactive ciprofloxacin 500 mg tablet RxNorm: 803162 Take 1 Tablet(s) Oral QD 11/30/19 021 Inactive DX ofloxacin otic drops Accu-Chek Guide test strips RxNorm: USE 1 TO CHECK GLUCOSE 4 TIMES DAILY AND NEEDED 11/15/19 21 023 Inactive Blood Glucose Test strips RxNorm: Use 1 Test Strip QID at PRN 11/05/19 21 023 Inactive E11.42 lisinopril 30 mg tablet RxNorm: 023067 Take 1 Tablet(s) Oral QD 10/30/19 021 Inactive lisinopril 20 mg tablet RxNorm: 938564 Take 1 Tablet(s) Oral QD 10/23/19 21 021 Inactive lisinopril 20 mg tablet RxNorm: 036522 Take 1 Tablet(s) Oral QD 10/23/19 21 021 Inactive lisinopril 10 mg tablet RxNorm: 903183 Take 1 Tablet(s) Oral QD 10/02/19 21 021 Inactive icosapent ethyl 1 gram capsule RxNorm: 6813345 Take 2 Capsule(s) (2 gm) Oral BID with meals 09/12/19 21 022 Inactive Okay to dispense one 2gm tab if you have that available. icosapent ethyl 1 gram capsule RxNorm: 5447094 Take 2 Capsule(s) Oral BID 09/12/19 21 021 Inactive Okay to dispense one 2gm tab if you have that available. amlodipine 10 mg tablet RxNorm: 484365 Take 1 Tablet(s) Oral QD 09/04/19 022 Inactive aspirin 81 mg tablet,delayed release RxNorm: 535978 Take 1 Tablet(s) Oral QD 09/04/19 021 Inactive Levemir FlexTouch U-100 Insulin 100 unit/mL (3 mL) subcutaneous pen RxNorm: 459510 Inject 150 Unit(s) Subcutaneous BID 09/04/19 022 Inactive venlafaxine ER 150 mg tablet,extended release 24 hr RxNorm: 989195 Take 1 Tablet(s) Oral QD 09/04/19 021 Inactive clotrimazole-betame thasone 1 %-0.05 % topical cream RxNorm: 066309 Apply to rash on red area on left abdomen/chest Topical BID 08/10/19 21 021 Inactive amlodipine 5 mg tablet RxNorm: 088198 Take 1 Tablet(s) Oral QD 07/31/19 Inactive cephalexin 500 mg tablet RxNorm: 631396 Take 1 Tablet(s) Oral BID BID - Twice Daily 07/31/19 021 Inactive Start 08/01/20 pantoprazole 40 mg tablet,delayed release RxNorm: 553732 Take 1 Tablet(s) Oral QAM every morning 07/08/19 022 Inactive senna 8.6 mg tablet RxNorm: 260956 Take 1 Tablet(s) Oral QD 07/08/19 022 Inactive pravastatin 80 mg tablet RxNorm: 066046 Take 1 Tablet(s) Oral QHS every night at bedtime 07/08/19 022 Inactive clotrimazole 1 % topical cream RxNorm: 037479 Apply to bilateral groin areas Topical BID 07/08/19 21 022 Inactive carbamazepine 200 mg tablet RxNorm: 204109 Take 1 Tablet(s) Oral BID 07/08/19 022 Inactive torsemide 20 mg tablet RxNorm: 412378 Take 1 Tablet(s) Oral QD 07/08/19 21 023 Inactive clopidogrel 75 mg tablet RxNorm: 465176 Take 1 Tablet(s) Oral QD 07/08/19 021 Inactive Blood Glucose Test strips RxNorm: Use 1 Test Strip QID at PRN 07/08/19 Inactive E11.42 Novolog Flexpen U-100 Insulin aspart 100 unit/mL (3 mL) subcutaneous RxNorm: 6129889 Administer per sliding scale Milliliter(s) Subcutaneous TID 151-200: 10 u; 201-250: 20 u; 251-300: 30 u; 301-350: 40 u; 351-400: 50 u. 07/08/19 022 Inactive lisinopril 5 mg tablet RxNorm: 285813 Take 1 Tablet(s) Oral QD 07/08/19 021 Inactive Novolog Flexpen U-100 Insulin aspart 100 unit/mL (3 mL) subcutaneous RxNorm: 8622110 Inject 85 Unit(s) Subcutaneous TID 07/08/19 Inactive metoprolol succinate ER 200 mg tablet,extended release 24 hr RxNorm: 131689 Take 1 Tablet(s) Oral QD 07/08/19 Inactive Vitamin D3 25 mcg (1,000 unit) tablet RxNorm: 061809 Take 1 Tablet(s) Oral QD 07/08/19 021 Inactive isosorbide dinitrate 30 mg tablet RxNorm: 489418 Take 1 Tablet(s) Oral QD 07/08/19 021 Inactive Levemir FlexTouch U-100 Insulin 100 unit/mL (3 mL) subcutaneous pen RxNorm: 032648 Inject 140 Unit(s) Subcutaneous BID 07/08/19 021 Inactive venlafaxine 75 mg tablet RxNorm: 792391 Take 1 Tablet(s) Oral QD 07/08/19 021 Inactive acetaminophen 500 mg tablet RxNorm: 477004 Take 1 Tablet(s) Oral TID as needed for headache 06/18/19 21 021 Inactive acetaminophen 500 mg tablet RxNorm: 655683 Take 1 Tablet(s) Oral TID as needed for headache 06/18/19 21 021 Inactive Lyrica 100 mg capsule RxNorm: 896059 Take 1 Capsule(s) Oral QHS every night at bedtime 06/11/19 21 021 Inactive Lyrica 50 mg capsule RxNorm: 598182 Take 1 Capsule(s) Oral QAM every morning 06/10/19 21 021 Inactive hydrocortisone 2.5 % topical cream RxNorm: 133008 Apply to bilateral groin creases Topical BID 05/15/20 20 021 Inactive clotrimazole 1 % topical cream RxNorm: 441270 Apply to bilateral groin areas Topical BID 05/15/20 20 021 Inactive Lyrica 50 mg capsule RxNorm: 941237 Take 1 Capsule(s) Oral QAM every morning 05/14/20 20 020 Inactive Lyrica 100 mg capsule RxNorm: 991601 Take 1 Capsule(s) Oral QHS every night [...] Inactive Nystop 100,000 unit/gram topical powder RxNorm: 989770 Apply to abd folds, under breasts and L side of groin Topical BID x 14 days, then BID PRN 11/ Inactive dx: yeast dermatitis Lyrica 100 mg capsule RxNorm: 770994 Take 1 Capsule(s) Oral QHS every night at bedtime 03/13/20 Inactive Lyrica 50 mg capsule RxNorm: 472995 Take 1 Capsule(s) Oral QAM every morning 03/13/20 20 Inactive ketoconazole 2 % shampoo RxNorm: 387651 Apply Topical two times a week with showers 03/11/20 Inactive cholecalciferol (vitamin D3) 50 mcg (2,000 unit) tablet RxNorm: 502015 Take 1 Tablet(s) Oral QD 03/11/20 Inactive Zetia 10 mg tablet RxNorm: 662006 Take 1 Tablet(s) Oral QD 03/07/20 Inactive Zetia 10 mg tablet RxNorm: 881989 Take 1 Tablet(s) Oral QD 03/07/20 20 Inactive Lyrica 50 mg capsule RxNorm: 476594 Take 1 Capsule(s) Oral QAM every morning 02/15/20 20 Inactive Lyrica 100 mg capsule RxNorm: 979781 Take 1 Capsule(s) Oral QHS every night at bedtime 02/15/20 Inactive Lyrica 100 mg capsule RxNorm: 311370 Take 1 Capsule(s) Oral QHS every night at bedtime 02/15/20 Inactive Lyrica 50 mg capsule RxNorm: 106301 Take 1 Capsule(s) Oral QAM every morning 02/15/20 Inactive venlafaxine ER 75 mg capsule,extended release 24 hr RxNorm: 129251 Take 3 Capsule(s) Oral QD 06/12/19 Active polyethylene glycol 3350 17 gram/dose oral powder RxNorm: 787219 Take 17=1 capful Gram(s) Oral BID as needed mix with 4-8oz of liquid 06/12/19 Active Levemir FlexTouch U-100 Insulin 100 unit/mL (3 mL) subcutaneous pen RxNorm: 749099 Inject 80 Unit(s) Subcutaneous BID 07/14/19 23 023 Inactive loperamide 2 mg capsule RxNorm: 034771 Take 1 Capsule(s) Oral QID as needed 06/12/19 Active Novolog Flexpen U-100 Insulin aspart 100 unit/mL (3 mL) subcutaneous RxNorm: 4054603 Insert 30 Unit(s) Subcutaneous TID with meals [...] Codes Status Date Referral: [facility] [id number] [facility] [address] [id number] [place] Referral Records Received 09/21/2022 Referral: [facility] WPtel: [address] [facility] [address] [id number] [place] Referral Completed 05/28/2021 Referral: General Cardiology [...] he moved to the [facility] to have closer nursing attention. Sister Jyotsna involved in his care cell# [phone] Guardian: Don middleton met in person 09/01/21), now has Lexii (same group as don)Lab Schedule: * 10/06/2022
--- OUTSIDE RECORDS SUMMARY | 2022-11-10 00:22 | XMS_ITS | CCD ---
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 Portfolio Analyst Name Role Phone Rosalina Shirley PA-C Primary Care Provider Unavailabl e Rosalina Shirley PA-C Chronic Care Management Unavaila ble Summary Purpose DataExchange Insurance Providers Payer name Policy type / Coverage type Covered constitution party ID Effective Begin Date Effective End Date Medicare MD Medicare Part B [id number] Unknown Unknown Medicaid MD Medicare Part B [id number] Unknown Unknown Family history Runs in the family Diagnosis Age At Onset No Known Diseases N/A Social History Social History Element Codes Description Effec tive Dates Living arrangements Unknown Fpc 09/03/[address]: 0326200 Non-Smoker / No History of Smoking 09/02/[address]: 606253940 No Alcohol Consum ption 09/02/2020 Allergies, Adverse Reactions, Alerts Substance Reaction Codes Entered Date Inactivated Date Status LISINOPRIL RxNorm: 92946 02/12/2020 No Inactive Da te Active Metformin [...] 08/04/2021 Active Coronary artery disease invo lving [place] coronary artery of [place] heart, angina presence unspecified ICD-10: I25.10 [...] ICD-10: M10 .30 ICD-9: 274.10 09/03/2020 Active [facility] (current) use of insulin ICD-10: Z79.4 09/03 [...] benzoyl peroxide 10 % topical cleanser RxNorm: 599290 Apply 1 Application Topical QD apply to face, wash rinse and dry once daily (may change to QOD if drying) 08/19/19 22 022 Inactive (%covered by insurance) #60ml refill 11 dx: acne benzoyl peroxide 10 % topical cleanser RxNorm: 719687 Apply 1 Application Topical QD apply to face, wash rinse and dry once daily (may change to QOD if drying) 08/19/19 22 022 Inactive (%covered by insurance) #60ml refill 11 dx: acne benzoyl peroxide 10 % topical cleanser RxNorm: 849481 Apply 1 Application Topical QD apply to face, wash rinse and dry once daily (may change to QOD if drying) 08/19/19 22 022 Inactive (%covered by insurance) #60ml refill 11 dx: acne Lyrica 50 mg capsule RxNorm: 000798 Take 1 Capsule(s) Oral QAM every morning Take 1 capsule by mouth once daily 08/19/19 22 022 Inactive benzoyl peroxide 10 % topical cleanser RxNorm: 475963 Apply 1 Application Topical QD apply to face, wash rinse and dry once daily (may change to QOD if drying) 08/19/19 22 022 Inactive (%covered by insurance) #60ml refill 11 dx: acne Lyrica 100 mg capsule RxNorm: 605220 Take 1 Capsule(s) Oral QHS every night at bedtime Take 1 capsule by mouth once daily at bedtime 08/19/19 22 022 Inactive Lyrica 100 mg capsule RxNorm: 632629 Take 1 Capsule(s) Oral QHS every night at bedtime Take 1 capsule by mouth once daily at bedtime 08/16/19 22 022 Inactive Lyrica 50 mg capsule RxNorm: 469129 Take 1 Capsule(s) Oral QAM every morning Take 1 capsule by mouth once daily 08/16/19 22 022 Inactive Levemir FlexTouch U-100 Insulin 100 unit/mL (3 mL) subcutaneous pen RxNorm: 359521 Inject 86 Unit(s) Subcutaneous BID 08/05/19 22 022 Inactive d/c 83units BID Lyrica 100 mg capsule RxNorm: 396862 Take 1 Capsule(s) Oral QHS every night at bedtime Take 1 capsule by mouth once daily at bedtime 07/14/19 22 022 Inactive Lyrica 50 mg capsule RxNorm: 021046 Take 1 Capsule(s) Oral QAM every morning Take 1 capsule by mouth once daily 07/14/19 22 022 Inactive Levemir FlexTouch U-100 Insulin 100 unit/mL (3 mL) subcutaneous pen RxNorm: 584112 Inject 83 Unit(s) Subcutaneous BID 02/22/ 022 [...] test strip hydralazine 50 mg tablet RxNorm: 969564 Take 1 Tablet(s) Oral QID 05/05/20 21 022 Inactive isosorbide mononitrate ER 30 mg tablet,extended release 24 hr RxNorm: 173256 Take 1 Tablet(s) Oral QD 05/05/20 No Stop Date Active venlafaxine ER 225 mg tablet,extended release 24 hr RxNorm: 949271 Take 1 Tablet(s) Oral QD 05/05/20 21 021 Inactive venlafaxine ER 225 mg tablet,extended release 24 hr RxNorm: 501529 Take 1 Tablet(s) Oral QD 05/05/20 022 Inactive hydralazine 50 mg tablet RxNorm: 805379 Take 1 Tablet(s) Oral QID 05/05/20 21 021 Inactive aspirin 81 mg tablet,delayed release RxNorm: 915715 Take 1 Tablet(s) Oral QD 03/31/20 022 Inactive Vitamin D2 1,250 mcg (50,000 unit) capsule RxNorm: 9955982 Take 1 Capsule(s) Oral QW once a week x 12 weeks 03/31/20 022 Inactive Zetia 10 mg tablet RxNorm: 891033 Take 1 Tablet(s) Oral QD 03/31/20 Inactive Vitamin D2 1,250 mcg (50,000 unit) capsule RxNorm: 2211618 Take 1 Capsule(s) Oral QW once a week 03/31/20 021 Inactive Zetia 10 mg tablet RxNorm: 915640 Take 1 Tablet(s) Oral QD 03/31/20 021 Inactive hydralazine 25 mg tablet RxNorm: 525984 Take 1 Tablet(s) Oral QID 03/31/20 021 Inactive hydralazine 25 mg tablet RxNorm: 414539 Take 1 Tablet(s) Oral QID 03/31/20 021 Inactive hydralazine 10 mg tablet RxNorm: 922750 Take 1 Tablet(s) Oral QID 03/03/20 021 Inactive cephalexin 500 mg tablet RxNorm: 175241 Take 1 Tablet(s) Oral QID 02/27/20 021 Inactive cephalexin 500 mg tablet RxNorm: 578003 Take 1 Tablet(s) Oral QID 02/27/20 021 Inactive lisinopril 40 mg tablet RxNorm: 134881 Take 1 Tablet(s) Oral QD 02/11/20 21 023 Inactive Eliquis 5 mg tablet RxNorm: 6639547 Take 1 Tablet(s) Oral BID 01/05/20 21 022 Inactive Eliquis 5 mg tablet RxNorm: 2506045 Take 2 Tablet(s) Oral QD 01/01/20 21 021 Inactive Lyrica 50 mg capsule RxNorm: 185507 Take 1 Capsule(s) Oral QAM every morning 12/24/19 21 021 Inactive Lyrica 100 mg capsule RxNorm: 659827 Take 1 Capsule(s) Oral QHS every night at bedtime 12/24/19 021 Inactive clotrimazole 1 % topical cream RxNorm: 794402 Apply to right foot and toes Topical BID 12/04/19 21 023 Inactive metoprolol succinate ER 200 mg tablet,extended release 24 hr RxNorm: 287320 Take 1 Tablet(s) Oral QD 12/04/19 21 023 Inactive ciprofloxacin 500 mg tablet RxNorm: 639472 Take 1 Tablet(s) Oral QD 11/30/19 021 Inactive DX ofloxacin otic drops Accu-Chek Guide test strips RxNorm: USE 1 TO CHECK GLUCOSE 4 TIMES DAILY AND NEEDED 11/15/19 21 023 Inactive Blood Glucose Test strips RxNorm: Use 1 Test Strip QID at PRN 11/05/19 21 023 Inactive E11.42 lisinopril 30 mg tablet RxNorm: 526328 Take 1 Tablet(s) Oral QD 10/30/19 021 Inactive lisinopril 20 mg tablet RxNorm: 095549 Take 1 Tablet(s) Oral QD 10/23/19 21 021 Inactive lisinopril 20 mg tablet RxNorm: 112586 Take 1 Tablet(s) Oral QD 10/23/19 21 021 Inactive lisinopril 10 mg tablet RxNorm: 493514 Take 1 Tablet(s) Oral QD 10/02/19 21 021 Inactive icosapent ethyl 1 gram capsule RxNorm: 3298476 Take 2 Capsule(s) (2 gm) Oral BID with meals 09/12/19 21 022 Inactive Okay to dispense one 2gm tab if you have that available. icosapent ethyl 1 gram capsule RxNorm: 2129218 Take 2 Capsule(s) Oral BID 09/12/19 21 021 Inactive Okay to dispense one 2gm tab if you have that available. amlodipine 10 mg tablet RxNorm: 680155 Take 1 Tablet(s) Oral QD 09/04/19 022 Inactive aspirin 81 mg tablet,delayed release RxNorm: 309729 Take 1 Tablet(s) Oral QD 09/04/19 021 Inactive Levemir FlexTouch U-100 Insulin 100 unit/mL (3 mL) subcutaneous pen RxNorm: 731291 Inject 150 Unit(s) Subcutaneous BID 09/04/19 022 Inactive venlafaxine ER 150 mg tablet,extended release 24 hr RxNorm: 885408 Take 1 Tablet(s) Oral QD 09/04/19 021 Inactive clotrimazole-betame thasone 1 %-0.05 % topical cream RxNorm: 971801 Apply to rash on red area on left abdomen/chest Topical BID 08/10/19 21 021 Inactive amlodipine 5 mg tablet RxNorm: 234733 Take 1 Tablet(s) Oral QD 07/31/19 Inactive cephalexin 500 mg tablet RxNorm: 477623 Take 1 Tablet(s) Oral BID BID - Twice Daily 07/31/19 021 Inactive Start 08/01/20 pantoprazole 40 mg tablet,delayed release RxNorm: 167508 Take 1 Tablet(s) Oral QAM every morning 07/08/19 022 Inactive senna 8.6 mg tablet RxNorm: 078137 Take 1 Tablet(s) Oral QD 07/08/19 022 Inactive pravastatin 80 mg tablet RxNorm: 168950 Take 1 Tablet(s) Oral QHS every night at bedtime 07/08/19 022 Inactive clotrimazole 1 % topical cream RxNorm: 232599 Apply to bilateral groin areas Topical BID 07/08/19 21 022 Inactive carbamazepine 200 mg tablet RxNorm: 612905 Take 1 Tablet(s) Oral BID 07/08/19 022 Inactive torsemide 20 mg tablet RxNorm: 022286 Take 1 Tablet(s) Oral QD 07/08/19 21 023 Inactive clopidogrel 75 mg tablet RxNorm: 997995 Take 1 Tablet(s) Oral QD 07/08/19 021 Inactive Blood Glucose Test strips RxNorm: Use 1 Test Strip QID at PRN 07/08/19 Inactive E11.42 Novolog Flexpen U-100 Insulin aspart 100 unit/mL (3 mL) subcutaneous RxNorm: 6106807 Administer per sliding scale Milliliter(s) Subcutaneous TID 151-200: 10 u; 201-250: 20 u; 251-300: 30 u; 301-350: 40 u; 351-400: 50 u. 07/08/19 022 Inactive lisinopril 5 mg tablet RxNorm: 238200 Take 1 Tablet(s) Oral QD 07/08/19 021 Inactive Novolog Flexpen U-100 Insulin aspart 100 unit/mL (3 mL) subcutaneous RxNorm: 0778117 Inject 85 Unit(s) Subcutaneous TID 07/08/19 Inactive metoprolol succinate ER 200 mg tablet,extended release 24 hr RxNorm: 243325 Take 1 Tablet(s) Oral QD 07/08/19 Inactive Vitamin D3 25 mcg (1,000 unit) tablet RxNorm: 136230 Take 1 Tablet(s) Oral QD 07/08/19 021 Inactive isosorbide dinitrate 30 mg tablet RxNorm: 033785 Take 1 Tablet(s) Oral QD 07/08/19 021 Inactive Levemir FlexTouch U-100 Insulin 100 unit/mL (3 mL) subcutaneous pen RxNorm: 363568 Inject 140 Unit(s) Subcutaneous BID 07/08/19 021 Inactive venlafaxine 75 mg tablet RxNorm: 280099 Take 1 Tablet(s) Oral QD 07/08/19 021 Inactive acetaminophen 500 mg tablet RxNorm: 779274 Take 1 Tablet(s) Oral TID as needed for headache 06/18/19 21 021 Inactive acetaminophen 500 mg tablet RxNorm: 182201 Take 1 Tablet(s) Oral TID as needed for headache 06/18/19 21 021 Inactive Lyrica 100 mg capsule RxNorm: 512911 Take 1 Capsule(s) Oral QHS every night at bedtime 06/11/19 21 021 Inactive Lyrica 50 mg capsule RxNorm: 447985 Take 1 Capsule(s) Oral QAM every morning 06/10/19 21 021 Inactive hydrocortisone 2.5 % topical cream RxNorm: 314517 Apply to bilateral groin creases Topical BID 05/15/20 20 021 Inactive clotrimazole 1 % topical cream RxNorm: 427943 Apply to bilateral groin areas Topical BID 05/15/20 20 021 Inactive Lyrica 50 mg capsule RxNorm: 100908 Take 1 Capsule(s) Oral QAM every morning 05/14/20 20 020 Inactive Lyrica 100 mg capsule RxNorm: 174236 Take 1 Capsule(s) Oral QHS every night [...] Inactive Nystop 100,000 unit/gram topical powder RxNorm: 619164 Apply to abd folds, under breasts and L side of groin Topical BID x 14 days, then BID PRN 11/ Inactive dx: yeast dermatitis Lyrica 100 mg capsule RxNorm: 432482 Take 1 Capsule(s) Oral QHS every night at bedtime 03/13/20 Inactive Lyrica 50 mg capsule RxNorm: 440612 Take 1 Capsule(s) Oral QAM every morning 03/13/20 20 Inactive ketoconazole 2 % shampoo RxNorm: 424905 Apply Topical two times a week with showers 03/11/20 Inactive cholecalciferol (vitamin D3) 50 mcg (2,000 unit) tablet RxNorm: 816295 Take 1 Tablet(s) Oral QD 03/11/20 Inactive Zetia 10 mg tablet RxNorm: 958091 Take 1 Tablet(s) Oral QD 03/07/20 Inactive Zetia 10 mg tablet RxNorm: 639076 Take 1 Tablet(s) Oral QD 03/07/20 20 Inactive Lyrica 50 mg capsule RxNorm: 360868 Take 1 Capsule(s) Oral QAM every morning 02/15/20 20 Inactive Lyrica 100 mg capsule RxNorm: 651486 Take 1 Capsule(s) Oral QHS every night at bedtime 02/15/20 Inactive Lyrica 100 mg capsule RxNorm: 455076 Take 1 Capsule(s) Oral QHS every night at bedtime 02/15/20 Inactive Lyrica 50 mg capsule RxNorm: 988012 Take 1 Capsule(s) Oral QAM every morning 02/15/20 Inactive venlafaxine ER 75 mg capsule,extended release 24 hr RxNorm: 400118 Take 3 Capsule(s) Oral QD 06/12/19 Active polyethylene glycol 3350 17 gram/dose oral powder RxNorm: 644452 Take 17=1 capful Gram(s) Oral BID as needed mix with 4-8oz of liquid 06/12/19 Active Levemir FlexTouch U-100 Insulin 100 unit/mL (3 mL) subcutaneous pen RxNorm: 009747 Inject 80 Unit(s) Subcutaneous BID 07/14/19 23 023 Inactive loperamide 2 mg capsule RxNorm: 508108 Take 1 Capsule(s) Oral QID as needed 06/12/19 Active Novolog Flexpen U-100 Insulin aspart 100 unit/mL (3 mL) subcutaneous RxNorm: 5832563 Insert 30 Unit(s) Subcutaneous TID with meals [...] Codes Status Date Referral: [facility]: [phone] [facility] [address] [id number] [place] Referral Records Received 09/21/2022 Referral: [facility] WPtel: [address] [id number] [place] Referral Completed 05/28/2021 Referral: General Cardiology [...] Sister Jyotsna involved in his care cell# [phone] Guardian: Don middleton met in person 09/01/21), now has Lexii (same group as don)Lab Schedule: * 10/06/2022
--- OUTSIDE RECORDS SUMMARY | 2022-11-10 00:22 | XMS_ITS | CCD ---
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 Destination Specialist Name Role Phone Rosalina Shirley PA-C Primary Care Provider Unavailabl e Rosalina Shirley PA-C Chronic Care Management Unavaila ble Summary Purpose DataExchange Insurance Providers Payer name Policy type / Coverage type Covered constitution party ID Effective Begin Date Effective End Date [place] [id number] [place] Unknown [place] B [id number] Unknown Unknown Family history Runs in the family Diagnosis Age At Onset No Known Diseases N/A Social History Social History Element Codes Description Effec tive Dates Living arrangements Unknown Shelter 09/03/[address]: 4950273 Non-Smoker / No History of Smoking 09/02/[address]: 030739072 No Alcohol Consum ption 09/02/2020 Allergies, Adverse Reactions, Alerts Substance Reaction Codes Entered Date Inactivated Date Status LISINOPRIL RxNorm: 11226 02/12/2020 No Inactive Da te Active Metformin [...] 08/04/2021 Active Coronary artery disease invo lving [place] coronary artery of [place] heart, angina presence unspecified ICD-10: I25.10 ICD-9: [...] ICD-10: M10 .30 ICD-9: 274.10 09/03/2020 Active USP (current) use of insulin ICD-10: Z79.4 09/03 [...] benzoyl peroxide 10 % topical cleanser RxNorm: 450879 Apply 1 Application Topical QD apply to face, wash rinse and dry once daily (may change to QOD if drying) 08/19/19 22 022 Inactive (%covered by insurance) #60ml refill 11 dx: acne benzoyl peroxide 10 % topical cleanser RxNorm: 945596 Apply 1 Application Topical QD apply to face, wash rinse and dry once daily (may change to QOD if drying) 08/19/19 22 022 Inactive (%covered by insurance) #60ml refill 11 dx: acne benzoyl peroxide 10 % topical cleanser RxNorm: 937580 Apply 1 Application Topical QD apply to face, wash rinse and dry once daily (may change to QOD if drying) 08/19/19 22 022 Inactive (%covered by insurance) #60ml refill 11 dx: acne Lyrica 50 mg capsule RxNorm: 431155 Take 1 Capsule(s) Oral QAM every morning Take 1 capsule by mouth once daily 08/19/19 22 022 Inactive benzoyl peroxide 10 % topical cleanser RxNorm: 668318 Apply 1 Application Topical QD apply to face, wash rinse and dry once daily (may change to QOD if drying) 08/19/19 22 022 Inactive (%covered by insurance) #60ml refill 11 dx: acne Lyrica 100 mg capsule RxNorm: 925840 Take 1 Capsule(s) Oral QHS every night at bedtime Take 1 capsule by mouth once daily at bedtime 08/19/19 22 022 Inactive Lyrica 100 mg capsule RxNorm: 728622 Take 1 Capsule(s) Oral QHS every night at bedtime Take 1 capsule by mouth once daily at bedtime 08/16/19 22 022 Inactive Lyrica 50 mg capsule RxNorm: 897876 Take 1 Capsule(s) Oral QAM every morning Take 1 capsule by mouth once daily 08/16/19 22 022 Inactive Levemir FlexTouch U-100 Insulin 100 unit/mL (3 mL) subcutaneous pen RxNorm: 811567 Inject 86 Unit(s) Subcutaneous BID 08/05/19 22 022 Inactive d/c 83units BID Lyrica 100 mg capsule RxNorm: 370758 Take 1 Capsule(s) Oral QHS every night at bedtime Take 1 capsule by mouth once daily at bedtime 07/14/19 22 022 Inactive Lyrica 50 mg capsule RxNorm: 415033 Take 1 Capsule(s) Oral QAM every morning Take 1 capsule by mouth once daily 07/14/19 22 022 Inactive Levemir FlexTouch U-100 Insulin 100 unit/mL (3 mL) subcutaneous pen RxNorm: 215946 Inject 83 Unit(s) Subcutaneous BID 02/22/ 022 [...] test strip hydralazine 50 mg tablet RxNorm: 841499 Take 1 Tablet(s) Oral QID 05/05/20 21 022 Inactive isosorbide mononitrate ER 30 mg tablet,extended release 24 hr RxNorm: 592137 Take 1 Tablet(s) Oral QD 05/05/20 No Stop Date Active venlafaxine ER 225 mg tablet,extended release 24 hr RxNorm: 110751 Take 1 Tablet(s) Oral QD 05/05/20 21 021 Inactive venlafaxine ER 225 mg tablet,extended release 24 hr RxNorm: 920974 Take 1 Tablet(s) Oral QD 05/05/20 022 Inactive hydralazine 50 mg tablet RxNorm: 088715 Take 1 Tablet(s) Oral QID 05/05/20 21 021 Inactive aspirin 81 mg tablet,delayed release RxNorm: 647828 Take 1 Tablet(s) Oral QD 03/31/20 022 Inactive Vitamin D2 1,250 mcg (50,000 unit) capsule RxNorm: 7355996 Take 1 Capsule(s) Oral QW once a week x 12 weeks 03/31/20 022 Inactive Zetia 10 mg tablet RxNorm: 480172 Take 1 Tablet(s) Oral QD 03/31/20 Inactive Vitamin D2 1,250 mcg (50,000 unit) capsule RxNorm: 3084831 Take 1 Capsule(s) Oral QW once a week 03/31/20 021 Inactive Zetia 10 mg tablet RxNorm: 811586 Take 1 Tablet(s) Oral QD 03/31/20 021 Inactive hydralazine 25 mg tablet RxNorm: 220515 Take 1 Tablet(s) Oral QID 03/31/20 021 Inactive hydralazine 25 mg tablet RxNorm: 529644 Take 1 Tablet(s) Oral QID 03/31/20 021 Inactive hydralazine 10 mg tablet RxNorm: 606360 Take 1 Tablet(s) Oral QID 03/03/20 021 Inactive cephalexin 500 mg tablet RxNorm: 881650 Take 1 Tablet(s) Oral QID 02/27/20 021 Inactive cephalexin 500 mg tablet RxNorm: 167280 Take 1 Tablet(s) Oral QID 02/27/20 021 Inactive lisinopril 40 mg tablet RxNorm: 263228 Take 1 Tablet(s) Oral QD 02/11/20 21 023 Inactive Eliquis 5 mg tablet RxNorm: 7587423 Take 1 Tablet(s) Oral BID 01/05/20 21 022 Inactive Eliquis 5 mg tablet RxNorm: 9667214 Take 2 Tablet(s) Oral QD 01/01/20 21 021 Inactive Lyrica 50 mg capsule RxNorm: 205551 Take 1 Capsule(s) Oral QAM every morning 12/24/19 21 021 Inactive Lyrica 100 mg capsule RxNorm: 473067 Take 1 Capsule(s) Oral QHS every night at bedtime 12/24/19 021 Inactive clotrimazole 1 % topical cream RxNorm: 456059 Apply to right foot and toes Topical BID 12/04/19 21 023 Inactive metoprolol succinate ER 200 mg tablet,extended release 24 hr RxNorm: 998142 Take 1 Tablet(s) Oral QD 12/04/19 21 023 Inactive ciprofloxacin 500 mg tablet RxNorm: 578760 Take 1 Tablet(s) Oral QD 11/30/19 021 Inactive DX ofloxacin otic drops Accu-Chek Guide test strips RxNorm: USE 1 TO CHECK GLUCOSE 4 TIMES DAILY AND NEEDED 11/15/19 21 023 Inactive Blood Glucose Test strips RxNorm: Use 1 Test Strip QID at PRN 11/05/19 21 023 Inactive E11.42 lisinopril 30 mg tablet RxNorm: 116208 Take 1 Tablet(s) Oral QD 10/30/19 021 Inactive lisinopril 20 mg tablet RxNorm: 905630 Take 1 Tablet(s) Oral QD 10/23/19 21 021 Inactive lisinopril 20 mg tablet RxNorm: 749350 Take 1 Tablet(s) Oral QD 10/23/19 21 021 Inactive lisinopril 10 mg tablet RxNorm: 760470 Take 1 Tablet(s) Oral QD 10/02/19 21 021 Inactive icosapent ethyl 1 gram capsule RxNorm: 6410943 Take 2 Capsule(s) (2 gm) Oral BID with meals 09/12/19 21 022 Inactive Okay to dispense one 2gm tab if you have that available. icosapent ethyl 1 gram capsule RxNorm: 9264854 Take 2 Capsule(s) Oral BID 09/12/19 21 021 Inactive Okay to dispense one 2gm tab if you have that available. amlodipine 10 mg tablet RxNorm: 210344 Take 1 Tablet(s) Oral QD 09/04/19 022 Inactive aspirin 81 mg tablet,delayed release RxNorm: 211328 Take 1 Tablet(s) Oral QD 09/04/19 021 Inactive Levemir FlexTouch U-100 Insulin 100 unit/mL (3 mL) subcutaneous pen RxNorm: 870008 Inject 150 Unit(s) Subcutaneous BID 09/04/19 022 Inactive venlafaxine ER 150 mg tablet,extended release 24 hr RxNorm: 752145 Take 1 Tablet(s) Oral QD 09/04/19 021 Inactive clotrimazole-betame thasone 1 %-0.05 % topical cream RxNorm: 534202 Apply to rash on red area on left abdomen/chest Topical BID 08/10/19 21 021 Inactive amlodipine 5 mg tablet RxNorm: 158103 Take 1 Tablet(s) Oral QD 07/31/19 Inactive cephalexin 500 mg tablet RxNorm: 228999 Take 1 Tablet(s) Oral BID BID - Twice Daily 07/31/19 021 Inactive Start 08/01/20 pantoprazole 40 mg tablet,delayed release RxNorm: 199796 Take 1 Tablet(s) Oral QAM every morning 07/08/19 022 Inactive senna 8.6 mg tablet RxNorm: 014345 Take 1 Tablet(s) Oral QD 07/08/19 022 Inactive pravastatin 80 mg tablet RxNorm: 550908 Take 1 Tablet(s) Oral QHS every night at bedtime 07/08/19 022 Inactive clotrimazole 1 % topical cream RxNorm: 385997 Apply to bilateral groin areas Topical BID 07/08/19 21 022 Inactive carbamazepine 200 mg tablet RxNorm: 763488 Take 1 Tablet(s) Oral BID 07/08/19 022 Inactive torsemide 20 mg tablet RxNorm: 232854 Take 1 Tablet(s) Oral QD 07/08/19 21 023 Inactive clopidogrel 75 mg tablet RxNorm: 797510 Take 1 Tablet(s) Oral QD 07/08/19 021 Inactive Blood Glucose Test strips RxNorm: Use 1 Test Strip QID at PRN 07/08/19 Inactive E11.42 Novolog Flexpen U-100 Insulin aspart 100 unit/mL (3 mL) subcutaneous RxNorm: 7519000 Administer per sliding scale Milliliter(s) Subcutaneous TID 151-200: 10 u; 201-250: 20 u; 251-300: 30 u; 301-350: 40 u; 351-400: 50 u. 07/08/19 022 Inactive lisinopril 5 mg tablet RxNorm: 594405 Take 1 Tablet(s) Oral QD 07/08/19 021 Inactive Novolog Flexpen U-100 Insulin aspart 100 unit/mL (3 mL) subcutaneous RxNorm: 1442399 Inject 85 Unit(s) Subcutaneous TID 07/08/19 Inactive metoprolol succinate ER 200 mg tablet,extended release 24 hr RxNorm: 220726 Take 1 Tablet(s) Oral QD 07/08/19 Inactive Vitamin D3 25 mcg (1,000 unit) tablet RxNorm: 703015 Take 1 Tablet(s) Oral QD 07/08/19 021 Inactive isosorbide dinitrate 30 mg tablet RxNorm: 631479 Take 1 Tablet(s) Oral QD 07/08/19 021 Inactive Levemir FlexTouch U-100 Insulin 100 unit/mL (3 mL) subcutaneous pen RxNorm: 179068 Inject 140 Unit(s) Subcutaneous BID 07/08/19 021 Inactive venlafaxine 75 mg tablet RxNorm: 549856 Take 1 Tablet(s) Oral QD 07/08/19 021 Inactive acetaminophen 500 mg tablet RxNorm: 136423 Take 1 Tablet(s) Oral TID as needed for headache 06/18/19 21 021 Inactive acetaminophen 500 mg tablet RxNorm: 498885 Take 1 Tablet(s) Oral TID as needed for headache 06/18/19 21 021 Inactive Lyrica 100 mg capsule RxNorm: 292510 Take 1 Capsule(s) Oral QHS every night at bedtime 06/11/19 21 021 Inactive Lyrica 50 mg capsule RxNorm: 274411 Take 1 Capsule(s) Oral QAM every morning 06/10/19 21 021 Inactive hydrocortisone 2.5 % topical cream RxNorm: 799804 Apply to bilateral groin creases Topical BID 05/15/20 20 021 Inactive clotrimazole 1 % topical cream RxNorm: 297893 Apply to bilateral groin areas Topical BID 05/15/20 20 021 Inactive Lyrica 50 mg capsule RxNorm: 604732 Take 1 Capsule(s) Oral QAM every morning 05/14/20 20 020 Inactive Lyrica 100 mg capsule RxNorm: 621326 Take 1 Capsule(s) Oral QHS every night [...] Inactive Nystop 100,000 unit/gram topical powder RxNorm: 600050 Apply to abd folds, under breasts and L side of groin Topical BID x 14 days, then BID PRN 11/ Inactive dx: yeast dermatitis Lyrica 100 mg capsule RxNorm: 160259 Take 1 Capsule(s) Oral QHS every night at bedtime 03/13/20 Inactive Lyrica 50 mg capsule RxNorm: 427636 Take 1 Capsule(s) Oral QAM every morning 03/13/20 20 Inactive ketoconazole 2 % shampoo RxNorm: 723604 Apply Topical two times a week with showers 03/11/20 Inactive cholecalciferol (vitamin D3) 50 mcg (2,000 unit) tablet RxNorm: 255839 Take 1 Tablet(s) Oral QD 03/11/20 Inactive Zetia 10 mg tablet RxNorm: 093662 Take 1 Tablet(s) Oral QD 03/07/20 Inactive Zetia 10 mg tablet RxNorm: 084925 Take 1 Tablet(s) Oral QD 03/07/20 20 Inactive Lyrica 50 mg capsule RxNorm: 748782 Take 1 Capsule(s) Oral QAM every morning 02/15/20 20 Inactive Lyrica 100 mg capsule RxNorm: 353745 Take 1 Capsule(s) Oral QHS every night at bedtime 02/15/20 Inactive Lyrica 100 mg capsule RxNorm: 267248 Take 1 Capsule(s) Oral QHS every night at bedtime 02/15/20 Inactive Lyrica 50 mg capsule RxNorm: 946548 Take 1 Capsule(s) Oral QAM every morning 02/15/20 Inactive venlafaxine ER 75 mg capsule,extended release 24 hr RxNorm: 691848 Take 3 Capsule(s) Oral QD 06/12/19 Active polyethylene glycol 3350 17 gram/dose oral powder RxNorm: 531597 Take 17=1 capful Gram(s) Oral BID as needed mix with 4-8oz of liquid 06/12/19 Active Levemir FlexTouch U-100 Insulin 100 unit/mL (3 mL) subcutaneous pen RxNorm: 632603 Inject 80 Unit(s) Subcutaneous BID 07/14/19 23 023 Inactive loperamide 2 mg capsule RxNorm: 631762 Take 1 Capsule(s) Oral QID as needed 06/12/19 Active Novolog Flexpen U-100 Insulin aspart 100 unit/mL (3 mL) subcutaneous RxNorm: 7959654 Insert 30 Unit(s) Subcutaneous TID with meals [...] [facility] [address] [facility] [address] [id number] [place] Referral Records Received 09/21/2022 Referral: [facility] [place]: [address] [id number] [place] Referral Completed 05/28/2021 Referral: General Cardiology Referral Complet ed 01/03/2021 Referral: General Psychologist Referral Close d Instructions Comment Date Leonid is a Male being seen living at [facility]. Initial [facility] visit 01/2020. PMHx including DMII, CAD w/ 5 stents, Depression, Seizure Disorder and CKD stage 3. He moved into [facility] in 12/2019 but after a hospitalization 05/2021 he moved to the [facility] to have closer nursing attention. Sister Jyotsna involved in his care cell# [phone] Guardian: Don middleton met in person 09/01/21), now has Lexii (same group as don)Lab Schedule: * 10/06/2022
--- OUTSIDE RECORDS SUMMARY | 2022-11-10 00:23 | XMS_ITS | CCD ---
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 Senior Payroll Specialist Name Role Phone Rosalina Shirley PA-C Primary Care Provider Unavailabl e Rosalina Shirley PA-C Chronic Care Management Unavaila ble Summary Purpose DataExchange Insurance Providers Payer name Policy type / Coverage type Covered green party ID Effective Begin Date Effective End Date [place] [id number] Unknown Unknown [place] [id number] Unknown Unknown Family history Runs in the family Diagnosis Age At Onset No Known Diseases N/A Social History Social History Element Codes Description Effec tive Dates Living arrangements Unknown Residential 09/03/[address]: 2910262 Non-Smoker / No History of Smoking 09/02/[address]: 427457011 No Alcohol Consum ption 09/02/2020 Allergies, Adverse Reactions, Alerts Substance Reaction Codes Entered Date Inactivated Date Status LISINOPRIL RxNorm: 48197 02/12/2020 No Inactive Da te Active Metformin [...] 08/04/2021 Active Coronary artery disease invo [place]ving [place] coronary artery of [place] heart, angina presence unspecified ICD-10: I25.10 ICD-9: [...] benzoyl peroxide 10 % topical cleanser RxNorm: 000909 Apply 1 Application Topical QD apply to face, wash rinse and dry once daily (may change to QOD if drying) 08/19/19 22 022 Inactive (%covered by insurance) #60ml refill 11 dx: acne benzoyl peroxide 10 % topical cleanser RxNorm: 021532 Apply 1 Application Topical QD apply to face, wash rinse and dry once daily (may change to QOD if drying) 08/19/19 22 022 Inactive (%covered by insurance) #60ml refill 11 dx: acne benzoyl peroxide 10 % topical cleanser RxNorm: 515253 Apply 1 Application Topical QD apply to face, wash rinse and dry once daily (may change to QOD if drying) 08/19/19 22 022 Inactive (%covered by insurance) #60ml refill 11 dx: acne Lyrica 50 mg capsule RxNorm: 623249 Take 1 Capsule(s) Oral QAM every morning Take 1 capsule by mouth once daily 08/19/19 22 022 Inactive benzoyl peroxide 10 % topical cleanser RxNorm: 691387 Apply 1 Application Topical QD apply to face, wash rinse and dry once daily (may change to QOD if drying) 08/19/19 22 022 Inactive (%covered by insurance) #60ml refill 11 dx: acne Lyrica 100 mg capsule RxNorm: 947824 Take 1 Capsule(s) Oral QHS every night at bedtime Take 1 capsule by mouth once daily at bedtime 08/19/19 22 022 Inactive Lyrica 100 mg capsule RxNorm: 933796 Take 1 Capsule(s) Oral QHS every night at bedtime Take 1 capsule by mouth once daily at bedtime 08/16/19 22 022 Inactive Lyrica 50 mg capsule RxNorm: 484117 Take 1 Capsule(s) Oral QAM every morning Take 1 capsule by mouth once daily 08/16/19 22 022 Inactive Levemir FlexTouch U-100 Insulin 100 unit/mL (3 mL) subcutaneous pen RxNorm: 799983 Inject 86 Unit(s) Subcutaneous BID 08/05/19 22 022 Inactive d/c 83units BID Lyrica 100 mg capsule RxNorm: 100471 Take 1 Capsule(s) Oral QHS every night at bedtime Take 1 capsule by mouth once daily at bedtime 07/14/19 22 022 Inactive Lyrica 50 mg capsule RxNorm: 839749 Take 1 Capsule(s) Oral QAM every morning Take 1 capsule by mouth once daily 07/14/19 22 022 Inactive Levemir FlexTouch U-100 Insulin 100 unit/mL (3 mL) subcutaneous pen RxNorm: 894013 Inject 83 Unit(s) Subcutaneous BID 02/22/ 022 [...] test strip hydralazine 50 mg tablet RxNorm: 088893 Take 1 Tablet(s) Oral QID 05/05/20 21 022 Inactive isosorbide mononitrate ER 30 mg tablet,extended release 24 hr RxNorm: 610892 Take 1 Tablet(s) Oral QD 05/05/20 No Stop Date Active venlafaxine ER 225 mg tablet,extended release 24 hr RxNorm: 198559 Take 1 Tablet(s) Oral QD 05/05/20 21 021 Inactive venlafaxine ER 225 mg tablet,extended release 24 hr RxNorm: 906573 Take 1 Tablet(s) Oral QD 05/05/20 022 Inactive hydralazine 50 mg tablet RxNorm: 570652 Take 1 Tablet(s) Oral QID 05/05/20 21 021 Inactive aspirin 81 mg tablet,delayed release RxNorm: 047523 Take 1 Tablet(s) Oral QD 03/31/20 022 Inactive Vitamin D2 1,250 mcg (50,000 unit) capsule RxNorm: 3237990 Take 1 Capsule(s) Oral QW once a week x 12 weeks 03/31/20 022 Inactive Zetia 10 mg tablet RxNorm: 025807 Take 1 Tablet(s) Oral QD 03/31/20 Inactive Vitamin D2 1,250 mcg (50,000 unit) capsule RxNorm: 1799427 Take 1 Capsule(s) Oral QW once a week 03/31/20 021 Inactive Zetia 10 mg tablet RxNorm: 498041 Take 1 Tablet(s) Oral QD 03/31/20 021 Inactive hydralazine 25 mg tablet RxNorm: 327108 Take 1 Tablet(s) Oral QID 03/31/20 021 Inactive hydralazine 25 mg tablet RxNorm: 130733 Take 1 Tablet(s) Oral QID 03/31/20 021 Inactive hydralazine 10 mg tablet RxNorm: 077335 Take 1 Tablet(s) Oral QID 03/03/20 021 Inactive cephalexin 500 mg tablet RxNorm: 397117 Take 1 Tablet(s) Oral QID 02/27/20 021 Inactive cephalexin 500 mg tablet RxNorm: 584784 Take 1 Tablet(s) Oral QID 02/27/20 021 Inactive lisinopril 40 mg tablet RxNorm: 572270 Take 1 Tablet(s) Oral QD 02/11/20 21 023 Inactive Eliquis 5 mg tablet RxNorm: 9810166 Take 1 Tablet(s) Oral BID 01/05/20 21 022 Inactive Eliquis 5 mg tablet RxNorm: 4839927 Take 2 Tablet(s) Oral QD 01/01/20 21 021 Inactive Lyrica 50 mg capsule RxNorm: 420191 Take 1 Capsule(s) Oral QAM every morning 12/24/19 21 021 Inactive Lyrica 100 mg capsule RxNorm: 190201 Take 1 Capsule(s) Oral QHS every night at bedtime 12/24/19 021 Inactive clotrimazole 1 % topical cream RxNorm: 935080 Apply to right foot and toes Topical BID 12/04/19 21 023 Inactive metoprolol succinate ER 200 mg tablet,extended release 24 hr RxNorm: 042746 Take 1 Tablet(s) Oral QD 12/04/19 21 023 Inactive ciprofloxacin 500 mg tablet RxNorm: 676726 Take 1 Tablet(s) Oral QD 11/30/19 021 Inactive DX ofloxacin otic drops Accu-Chek Guide test strips RxNorm: USE 1 TO CHECK GLUCOSE 4 TIMES DAILY AND NEEDED 11/15/19 21 023 Inactive Blood Glucose Test strips RxNorm: Use 1 Test Strip QID at PRN 11/05/19 21 023 Inactive E11.42 lisinopril 30 mg tablet RxNorm: 457560 Take 1 Tablet(s) Oral QD 10/30/19 021 Inactive lisinopril 20 mg tablet RxNorm: 699403 Take 1 Tablet(s) Oral QD 10/23/19 21 021 Inactive lisinopril 20 mg tablet RxNorm: 821533 Take 1 Tablet(s) Oral QD 10/23/19 21 021 Inactive lisinopril 10 mg tablet RxNorm: 130364 Take 1 Tablet(s) Oral QD 10/02/19 21 021 Inactive icosapent ethyl 1 gram capsule RxNorm: 4941519 Take 2 Capsule(s) (2 gm) Oral BID with meals 09/12/19 21 022 Inactive Okay to dispense one 2gm tab if you have that available. icosapent ethyl 1 gram capsule RxNorm: 5451969 Take 2 Capsule(s) Oral BID 09/12/19 21 021 Inactive Okay to dispense one 2gm tab if you have that available. amlodipine 10 mg tablet RxNorm: 006270 Take 1 Tablet(s) Oral QD 09/04/19 022 Inactive aspirin 81 mg tablet,delayed release RxNorm: 965140 Take 1 Tablet(s) Oral QD 09/04/19 021 Inactive Levemir FlexTouch U-100 Insulin 100 unit/mL (3 mL) subcutaneous pen RxNorm: 116518 Inject 150 Unit(s) Subcutaneous BID 09/04/19 022 Inactive venlafaxine ER 150 mg tablet,extended release 24 hr RxNorm: 135834 Take 1 Tablet(s) Oral QD 09/04/19 021 Inactive clotrimazole-betame thasone 1 %-0.05 % topical cream RxNorm: 397872 Apply to rash on red area on left abdomen/chest Topical BID 08/10/19 21 021 Inactive amlodipine 5 mg tablet RxNorm: 290237 Take 1 Tablet(s) Oral QD 07/31/19 Inactive cephalexin 500 mg tablet RxNorm: 185576 Take 1 Tablet(s) Oral BID BID - Twice Daily 07/31/19 021 Inactive Start 08/01/20 pantoprazole 40 mg tablet,delayed release RxNorm: 827639 Take 1 Tablet(s) Oral QAM every morning 07/08/19 022 Inactive senna 8.6 mg tablet RxNorm: 203284 Take 1 Tablet(s) Oral QD 07/08/19 022 Inactive pravastatin 80 mg tablet RxNorm: 017828 Take 1 Tablet(s) Oral QHS every night at bedtime 07/08/19 022 Inactive clotrimazole 1 % topical cream RxNorm: 374156 Apply to bilateral groin areas Topical BID 07/08/19 21 022 Inactive carbamazepine 200 mg tablet RxNorm: 846506 Take 1 Tablet(s) Oral BID 07/08/19 022 Inactive torsemide 20 mg tablet RxNorm: 156895 Take 1 Tablet(s) Oral QD 07/08/19 21 023 Inactive clopidogrel 75 mg tablet RxNorm: 981641 Take 1 Tablet(s) Oral QD 07/08/19 021 Inactive Blood Glucose Test strips RxNorm: Use 1 Test Strip QID at PRN 07/08/19 Inactive E11.42 Novolog Flexpen U-100 Insulin aspart 100 unit/mL (3 mL) subcutaneous RxNorm: 0066638 Administer per sliding scale Milliliter(s) Subcutaneous TID 151-200: 10 u; 201-250: 20 u; 251-300: 30 u; 301-350: 40 u; 351-400: 50 u. 07/08/19 022 Inactive lisinopril 5 mg tablet RxNorm: 080614 Take 1 Tablet(s) Oral QD 07/08/19 021 Inactive Novolog Flexpen U-100 Insulin aspart 100 unit/mL (3 mL) subcutaneous RxNorm: 4809761 Inject 85 Unit(s) Subcutaneous TID 07/08/19 Inactive metoprolol succinate ER 200 mg tablet,extended release 24 hr RxNorm: 386196 Take 1 Tablet(s) Oral QD 07/08/19 Inactive Vitamin D3 25 mcg (1,000 unit) tablet RxNorm: 809656 Take 1 Tablet(s) Oral QD 07/08/19 021 Inactive isosorbide dinitrate 30 mg tablet RxNorm: 637179 Take 1 Tablet(s) Oral QD 07/08/19 021 Inactive Levemir FlexTouch U-100 Insulin 100 unit/mL (3 mL) subcutaneous pen RxNorm: 891894 Inject 140 Unit(s) Subcutaneous BID 07/08/19 021 Inactive venlafaxine 75 mg tablet RxNorm: 459423 Take 1 Tablet(s) Oral QD 07/08/19 021 Inactive acetaminophen 500 mg tablet RxNorm: 198151 Take 1 Tablet(s) Oral TID as needed for headache 06/18/19 21 021 Inactive acetaminophen 500 mg tablet RxNorm: 358242 Take 1 Tablet(s) Oral TID as needed for headache 06/18/19 21 021 Inactive Lyrica 100 mg capsule RxNorm: 522168 Take 1 Capsule(s) Oral QHS every night at bedtime 06/11/19 21 021 Inactive Lyrica 50 mg capsule RxNorm: 832067 Take 1 Capsule(s) Oral QAM every morning 06/10/19 21 021 Inactive hydrocortisone 2.5 % topical cream RxNorm: 986818 Apply to bilateral groin creases Topical BID 05/15/20 20 021 Inactive clotrimazole 1 % topical cream RxNorm: 204878 Apply to bilateral groin areas Topical BID 05/15/20 20 021 Inactive Lyrica 50 mg capsule RxNorm: 530087 Take 1 Capsule(s) Oral QAM every morning 05/14/20 20 020 Inactive Lyrica 100 mg capsule RxNorm: 789325 Take 1 Capsule(s) Oral QHS every night [...] Inactive Nystop 100,000 unit/gram topical powder RxNorm: 506534 Apply to abd folds, under breasts and L side of groin Topical BID x 14 days, then BID PRN 11/ Inactive dx: yeast dermatitis Lyrica 100 mg capsule RxNorm: 612381 Take 1 Capsule(s) Oral QHS every night at bedtime 03/13/20 Inactive Lyrica 50 mg capsule RxNorm: 430944 Take 1 Capsule(s) Oral QAM every morning 03/13/20 20 Inactive ketoconazole 2 % shampoo RxNorm: 444181 Apply Topical two times a week with showers 03/11/20 Inactive cholecalciferol (vitamin D3) 50 mcg (2,000 unit) tablet RxNorm: 137125 Take 1 Tablet(s) Oral QD 03/11/20 Inactive Zetia 10 mg tablet RxNorm: 603329 Take 1 Tablet(s) Oral QD 03/07/20 Inactive Zetia 10 mg tablet RxNorm: 553695 Take 1 Tablet(s) Oral QD 03/07/20 20 Inactive Lyrica 50 mg capsule RxNorm: 095742 Take 1 Capsule(s) Oral QAM every morning 02/15/20 20 Inactive Lyrica 100 mg capsule RxNorm: 779719 Take 1 Capsule(s) Oral QHS every night at bedtime 02/15/20 Inactive Lyrica 100 mg capsule RxNorm: 808141 Take 1 Capsule(s) Oral QHS every night at bedtime 02/15/20 Inactive Lyrica 50 mg capsule RxNorm: 062622 Take 1 Capsule(s) Oral QAM every morning 02/15/20 Inactive venlafaxine ER 75 mg capsule,extended release 24 hr RxNorm: 477149 Take 3 Capsule(s) Oral QD 06/12/19 Active polyethylene glycol 3350 17 gram/dose oral powder RxNorm: 442371 Take 17=1 capful Gram(s) Oral BID as needed mix with 4-8oz of liquid 06/12/19 Active Levemir FlexTouch U-100 Insulin 100 unit/mL (3 mL) subcutaneous pen RxNorm: 717957 Inject 80 Unit(s) Subcutaneous BID 07/14/19 23 023 Inactive loperamide 2 mg capsule RxNorm: 014404 Take 1 Capsule(s) Oral QID as needed 06/12/19 Active Novolog Flexpen U-100 Insulin aspart 100 unit/mL (3 mL) subcutaneous RxNorm: 0617277 Insert 30 Unit(s) Subcutaneous TID with meals [...] Codes Status Date Referral: [facility] [id number] [facility] [address] [id number] [place] Referral Records Received 09/21/2022 Referral: [facility] WPtel: [id number] [id number] [place] Referral Completed 05/28/2021 Referral: General Cardiology Referral Complet ed 01/03/2021 Referral: General Psychologist Referral Close d Instructions Comment Date Leonid is a Male being seen living at [facility]. Initial BPS visit 01/2020. PMHx including DMII, CAD w/ 5 stents, Depression, Seizure Disorder and CKD stage 3. He moved into [facility] in 12/2019 but after a hospitalization 05/2021 he moved to the [facility] to have closer nursing attention. Sister Jyotsna involved in his care cell# [phone] Guardian: Don middleton met in person 09/01/21), now has Lexii (same group as don)Lab Schedule: * 10/06/2022
--- OUTSIDE RECORDS SUMMARY | 2022-11-10 00:23 | XMS_ITS | CCD ---
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 Name Role Phone Tapan Shirley PA-C Primary Care Provider Unavailabl e Tapan Shirley PA-C Chronic Care Management Unavaila ble Summary Purpose DataExchange Insurance Providers Payer name Policy type / Coverage type Covered republican ID Effective Begin Date Effective End Date [place] Part B [id number] Unknown Unknown [place] Part B [id number] Unknown Unknown Family history Runs in the family Diagnosis Age At Onset No Known Diseases N/A Social History Social History Element Codes Description Effec tive Dates Living arrangements Unknown [facility] 09/03/[address]: 0414645 Non-Smoker / No History of Smoking 09/02/[address]: 713524485 No Alcohol Consum ption 09/02/2020 Allergies, Adverse Reactions, Alerts Substance Reaction Codes Entered Date Inactivated Date Status LISINOPRIL RxNorm: 62336 02/12/2020 No Inactive Da te Active Metformin [...] 08/04/2021 Active Coronary artery disease invo lving [place] coronary artery of [place] heart, angina presence unspecified ICD-10: I25.10 ICD-9: [...] benzoyl peroxide 10 % topical cleanser RxNorm: 181175 Apply 1 Application Topical QD apply to face, wash rinse and dry once daily (may change to QOD if drying) 08/19/1903/2 022 Inactive (%covered by insurance) #60ml refill 11 dx: acne benzoyl peroxide 10 % topical cleanser RxNorm: 740917 Apply 1 Application Topical QD apply to face, wash rinse and dry once daily (may change to QOD if drying) 08/19/19 22 022 Inactive (%covered by insurance) #60ml refill 11 dx: acne benzoyl peroxide 10 % topical cleanser RxNorm: 757549 Apply 1 Application Topical QD apply to face, wash rinse and dry once daily (may change to QOD if drying) 08/19/19 22 022 Inactive (%covered by insurance) #60ml refill 11 dx: acne Lyrica 100 mg capsule RxNorm: 234588 Take 1 Capsule(s) Oral QHS every night at bedtime Take 1 capsule by mouth once daily at bedtime 08/19/19 22 022 Inactive Lyrica 50 mg capsule RxNorm: 747547 Take 1 Capsule(s) Oral QAM every morning Take 1 capsule by mouth once daily 08/19/19 22 022 Inactive benzoyl peroxide 10 % topical cleanser RxNorm: 126306 Apply 1 Application Topical QD apply to face, wash rinse and dry once daily (may change to QOD if drying) 08/19/19 22 022 Inactive (%covered by insurance) #60ml refill 11 dx: acne Lyrica 100 mg capsule RxNorm: 654662 Take 1 Capsule(s) Oral QHS every night at bedtime Take 1 capsule by mouth once daily at bedtime 08/16/19 022 Inactive Lyrica 50 mg capsule RxNorm: 879923 Take 1 Capsule(s) Oral QAM every morning Take 1 capsule by mouth once daily 08/16/19 22 022 Inactive Levemir FlexTouch U-100 Insulin 100 unit/mL (3 mL) subcutaneous pen RxNorm: 776345 Inject 86 Unit(s) Subcutaneous BID 08/05/19 22 022 Inactive d/c 83units BID Lyrica 100 mg capsule RxNorm: 989111 Take 1 Capsule(s) Oral QHS every night at bedtime Take 1 capsule by mouth once daily at bedtime 07/14/19 22 Inactive Lyrica 50 mg capsule RxNorm: 315510 Take 1 Capsule(s) Oral QAM every morning Take 1 capsule by mouth once daily 07/14/19 22 Inactive Levemir FlexTouch U-100 Insulin 100 unit/mL (3 mL) subcutaneous pen RxNorm: 619696 Inject 83 Unit(s) Subcutaneous BID 07/08/19 22 [...] test strip hydralazine 50 mg tablet RxNorm: 283743 Take 1 Tablet(s) Oral QID 05/05/20 022 Inactive isosorbide mononitrate ER 30 mg tablet,extended release 24 hr RxNorm: 652690 Take 1 Tablet(s) Oral QD 05/05/20 No Stop Date Active venlafaxine ER 225 mg tablet,extended release 24 hr RxNorm: 877751 Take 1 Tablet(s) Oral QD 05/05/20 Inactive venlafaxine ER 225 mg tablet,extended release 24 hr RxNorm: 402661 Take 1 Tablet(s) Oral QD 05/05/20 022 Inactive hydralazine 50 mg tablet RxNorm: 843107 Take 1 Tablet(s) Oral QID 05/05/20 Inactive aspirin 81 mg tablet,delayed release RxNorm: 760228 Take 1 Tablet(s) Oral QD 03/31/20 022 Inactive Vitamin D2 1,250 mcg (50,000 unit) capsule RxNorm: 8931377 Take 1 Capsule(s) Oral QW once a week x 12 weeks 03/31/20 022 Inactive Zetia 10 mg tablet RxNorm: 764521 Take 1 Tablet(s) Oral QD 03/31/20 Inactive Vitamin D2 1,250 mcg (50,000 unit) capsule RxNorm: 9618321 Take 1 Capsule(s) Oral QW once a week 03/31/20 Inactive Zetia 10 mg tablet RxNorm: 116558 Take 1 Tablet(s) Oral QD 03/31/20 Inactive hydralazine 25 mg tablet RxNorm: 838329 Take 1 Tablet(s) Oral QID 03/31/20 021 Inactive hydralazine 25 mg tablet RxNorm: 787595 Take 1 Tablet(s) Oral QID 03/31/20 021 Inactive hydralazine 10 mg tablet RxNorm: 601247 Take 1 Tablet(s) Oral QID 03/03/20 021 Inactive cephalexin 500 mg tablet RxNorm: 911511 Take 1 Tablet(s) Oral QID 02/27/20 021 Inactive cephalexin 500 mg tablet RxNorm: 194853 Take 1 Tablet(s) Oral QID 02/27/20 021 Inactive lisinopril 40 mg tablet RxNorm: 840478 Take 1 Tablet(s) Oral QD 02/11/20 023 Inactive Eliquis 5 mg tablet RxNorm: 7453797 Take 1 Tablet(s) Oral BID 01/05/20 21 022 Inactive Eliquis 5 mg tablet RxNorm: 5897563 Take 2 Tablet(s) Oral QD 01/01/20 21 021 Inactive Lyrica 50 mg capsule RxNorm: 893075 Take 1 Capsule(s) Oral QAM every morning 12/24/19 021 Inactive Lyrica 100 mg capsule RxNorm: 034285 Take 1 Capsule(s) Oral QHS every night at bedtime 12/24/19 021 Inactive clotrimazole 1 % topical cream RxNorm: 122081 Apply to right foot and toes Topical BID 12/04/19 21 023 Inactive metoprolol succinate ER 200 mg tablet,extended release 24 hr RxNorm: 516385 Take 1 Tablet(s) Oral QD 12/04/19 023 Inactive ciprofloxacin 500 mg tablet RxNorm: 637342 Take 1 Tablet(s) Oral QD 11/30/19 021 Inactive DX ofloxacin otic drops Accu-Chek Guide test strips RxNorm: USE 1 TO CHECK GLUCOSE 4 TIMES DAILY AND NEEDED 11/15/19 21 023 Inactive Blood Glucose Test strips RxNorm: Use 1 Test Strip QID at PRN 11/05/19 21 023 Inactive E11.42 lisinopril 30 mg tablet RxNorm: 366452 Take 1 Tablet(s) Oral QD 10/30/19 21 021 Inactive lisinopril 20 mg tablet RxNorm: 004176 Take 1 Tablet(s) Oral QD 10/23/19 21 021 Inactive lisinopril 20 mg tablet RxNorm: 637842 Take 1 Tablet(s) Oral QD 10/23/19 21 021 Inactive lisinopril 10 mg tablet RxNorm: 166329 Take 1 Tablet(s) Oral QD 10/02/19 21 021 Inactive icosapent ethyl 1 gram capsule RxNorm: 1513619 Take 2 Capsule(s) (2 gm) Oral BID with meals 09/12/19 022 Inactive Okay to dispense one 2gm tab if you have that available. icosapent ethyl 1 gram capsule RxNorm: 1510797 Take 2 Capsule(s) Oral BID 09/12/19 021 Inactive Okay to dispense one 2gm tab if you have that available. amlodipine 10 mg tablet RxNorm: 683974 Take 1 Tablet(s) Oral QD 09/04/19 Inactive aspirin 81 mg tablet,delayed release RxNorm: 632165 Take 1 Tablet(s) Oral QD 09/04/19 Inactive Levemir FlexTouch U-100 Insulin 100 unit/mL (3 mL) subcutaneous pen RxNorm: 296242 Inject 150 Unit(s) Subcutaneous BID 09/04/19 21 022 Inactive venlafaxine ER 150 mg tablet,extended release 24 hr RxNorm: 789104 Take 1 Tablet(s) Oral QD 09/04/19 021 Inactive clotrimazole-betame thasone 1 %-0.05 % topical cream RxNorm: 428186 Apply to rash on red area on left abdomen/chest Topical BID 08/10/19 21 Inactive amlodipine 5 mg tablet RxNorm: 657717 Take 1 Tablet(s) Oral QD 07/31/19 21 021 Inactive cephalexin 500 mg tablet RxNorm: 954734 Take 1 Tablet(s) Oral BID BID - Twice Daily 07/31/19 21 021 Inactive Start 08/01/20 pantoprazole 40 mg tablet,delayed release RxNorm: 656394 Take 1 Tablet(s) Oral QAM every morning 07/08/19 21 022 Inactive senna 8.6 mg tablet RxNorm: 066345 Take 1 Tablet(s) Oral QD 07/08/19 21 022 Inactive pravastatin 80 mg tablet RxNorm: 132628 Take 1 Tablet(s) Oral QHS every night at bedtime 07/08/19 022 Inactive clotrimazole 1 % topical cream RxNorm: 777620 Apply to bilateral groin areas Topical BID 07/08/19 21 022 Inactive carbamazepine 200 mg tablet RxNorm: 851640 Take 1 Tablet(s) Oral BID 07/08/19 21 022 Inactive torsemide 20 mg tablet RxNorm: 193856 Take 1 Tablet(s) Oral QD 07/08/19 21 023 Inactive clopidogrel 75 mg tablet RxNorm: 694625 Take 1 Tablet(s) Oral QD 07/08/19 021 Inactive Blood Glucose Test strips RxNorm: Use 1 Test Strip QID at PRN 07/08/19 Inactive E11.42 Novolog Flexpen U-100 Insulin aspart 100 unit/mL (3 mL) subcutaneous RxNorm: 8213849 Administer per sliding scale Milliliter(s) Subcutaneous TID 151-200: 10 u; 201-250: 20 u; 251-300: 30 u; 301-350: 40 u; 351-400: 50 u. 07/08/19 022 Inactive lisinopril 5 mg tablet RxNorm: 547949 Take 1 Tablet(s) Oral QD 07/08/19 021 Inactive Novolog Flexpen U-100 Insulin aspart 100 unit/mL (3 mL) subcutaneous RxNorm: 3815977 Inject 85 Unit(s) Subcutaneous TID 07/08/19 21 022 Inactive metoprolol succinate ER 200 mg tablet,extended release 24 hr RxNorm: 365706 Take 1 Tablet(s) Oral QD 07/08/19 021 Inactive Vitamin D3 25 mcg (1,000 unit) tablet RxNorm: 356448 Take 1 Tablet(s) Oral QD 07/08/19 021 Inactive isosorbide dinitrate 30 mg tablet RxNorm: 740873 Take 1 Tablet(s) Oral QD 07/08/19 021 Inactive Levemir FlexTouch U-100 Insulin 100 unit/mL (3 mL) subcutaneous pen RxNorm: 131883 Inject 140 Unit(s) Subcutaneous BID 07/08/19 21 021 Inactive venlafaxine 75 mg tablet RxNorm: 939788 Take 1 Tablet(s) Oral QD 07/08/19 21 021 Inactive acetaminophen 500 mg tablet RxNorm: 175667 Take 1 Tablet(s) Oral TID as needed for headache 06/18/19 Inactive acetaminophen 500 mg tablet RxNorm: 107372 Take 1 Tablet(s) Oral TID as needed for headache 06/18/19 21 021 Inactive Lyrica 100 mg capsule RxNorm: 426203 Take 1 Capsule(s) Oral QHS every night at bedtime 06/11/19 21 021 Inactive Lyrica 50 mg capsule RxNorm: 910349 Take 1 Capsule(s) Oral QAM every morning 06/10/19 21 021 Inactive hydrocortisone 2.5 % topical cream RxNorm: 453970 Apply to bilateral groin creases Topical BID 05/15/20 20 021 Inactive clotrimazole 1 % topical cream RxNorm: 741955 Apply to bilateral groin areas Topical BID 05/15/20 20 021 Inactive Lyrica 50 mg capsule RxNorm: 507480 Take 1 Capsule(s) Oral QAM every morning 05/14/20 20 020 Inactive Lyrica 100 mg capsule RxNorm: 546615 Take 1 Capsule(s) Oral QHS every night [...] Inactive Nystop 100,000 unit/gram topical powder RxNorm: 802928 Apply to abd folds, under breasts and L side of groin Topical BID x 14 days, then BID PRN 04/08/20 20 Inactive dx: yeast dermatitis Lyrica 100 mg capsule RxNorm: 852727 Take 1 Capsule(s) Oral QHS every night at bedtime 03/13/20 20 Inactive Lyrica 50 mg capsule RxNorm: 441964 Take 1 Capsule(s) Oral QAM every morning 03/13/20 20 Inactive ketoconazole 2 % shampoo RxNorm: 991755 Apply Topical two times a week with showers 03/11/20 20 Inactive cholecalciferol (vitamin D3) 50 mcg (2,000 unit) tablet RxNorm: 772059 Take 1 Tablet(s) Oral QD 03/11/20 20 Inactive Zetia 10 mg tablet RxNorm: 146841 Take 1 Tablet(s) Oral QD 03/07/20 20 021 Inactive Zetia 10 mg tablet RxNorm: 386033 Take 1 Tablet(s) Oral QD 03/07/20 20 Inactive Lyrica 50 mg capsule RxNorm: 687481 Take 1 Capsule(s) Oral QAM every morning 02/15/20 20 Inactive Lyrica 100 mg capsule RxNorm: 262732 Take 1 Capsule(s) Oral QHS every night at bedtime 02/15/20 20 Inactive Lyrica 100 mg capsule RxNorm: 311047 Take 1 Capsule(s) Oral QHS every night at bedtime 02/15/20 20 Inactive Lyrica 50 mg capsule RxNorm: 884055 Take 1 Capsule(s) Oral QAM every morning 02/15/20 20 Inactive venlafaxine ER 75 mg capsule,extended release 24 hr RxNorm: 665361 Take 3 Capsule(s) Oral QD 06/12/19 22 Active polyethylene glycol 3350 17 gram/dose oral powder RxNorm: 035031 Take 17=1 capful Gram(s) Oral BID as needed mix with 4-8oz of liquid 06/12/19 22 Active Levemir FlexTouch U-100 Insulin 100 unit/mL (3 mL) subcutaneous pen RxNorm: 201671 Inject 80 Unit(s) Subcutaneous BID 07/14/19 23 023 Inactive loperamide 2 mg capsule RxNorm: 536981 Take 1 Capsule(s) Oral QID as needed 06/12/19 22 Active Novolog Flexpen U-100 Insulin aspart 100 unit/mL (3 mL) subcutaneous RxNorm: 4487675 Insert 30 Unit(s) Subcutaneous TID with meals [...] Basic Metabolic Panel (BMP) BMP Calcium (Ca) 00577-6 8.6 mg/dL 09/20/19 22 Unknown Basic Metabolic Panel (BMP) BMP Carbon Dioxide (ECO2) 26 mEq/L 09/20/19 22 Unknown Basic Metabolic Panel (BMP) BMP Chloride (Cl) 2075-0 106 mmol/L 09/20/19 22 Unknown Basic Metabolic Panel (BMP) BMP Creatinine 2160-0 1.02 mg/dL 09/20/19 22 Unknown Basic Metabolic Panel (BMP) BMP eGFR 79.00 mL/min/1.7 3m2 09/20/19 22 Unknown Basic Metabolic Panel (BMP) BMP eGFR 03881-2 95.00 mL/min/1.7 3m2 09/20/19 22 Unknown Basic Metabolic Panel (BMP) BMP Glucose 193 mg/dL 09/20/19 22 Unknown Basic Metabolic Panel (BMP) BMP Potassium (K) 2823-3 4.4 mmol/L 09/20/19 22 Unknown Basic Metabolic Panel (BMP) BMP Sodium (Na) 2951-2 143 mmol/L 09/20/19 22 Unknown Hemoglobin A1c HEMOGLOBA Hemoglobin A1c 15902-2 9.1 %A1c 09/20/19 22 Unknown Lipid Panel (LP) LIPIDPAN CHOLESTEROL, TOTAL 31568-8 112 mg/dL 09/20/19 22 Unknown Lipid Panel (LP) LIPIDPAN HDL CHOLESTEROL 2085-9 26.8 mg /dL 09/20/19 22 Unknown Lipid Panel (LP) LIPIDPAN LDL CHOLESTEROL CALCULATED 16279-6 35 ppm 09/20/19 22 Unknown Lipid Panel [...] CBC with Differential / Platelets CBCDIFF MPV 70677-7 9.9 fL 09/20/19 22 Unknown CBC with [...] 09/01/2021 DEBRIDE NAIL 6 OR MORE CPT-4: 20300 2 Vital Signs Date Vital 09/01/2021 Blood Pressure 1: 144/70 Code: 8 480-6 Temperature: 37.0 (C) / 98.6 (F) Reason For Visit No Reason For Visit data Encounters Encounter Performer Location Location Address Codes Date (23284) DOMICIL VISIT EST PAT Diagnosis: Hyperlipidemia associated with type 2 diabetes mellitus[ICD10: E11.69] Diagnosis: Hypertension associated with diabetes[ICD10: E11.59] Diagnosis: Stage 2 chronic 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[ICD10: E11.22] Diagnosis: Type 2 diabetes mellitus with diabetic polyneuropathy, with long-term current use of insulin[ICD10: E11.42] Diagnosis: correction (current) use of insulin[ICD10: Z79.4] Diagnosis: Lower extremity edema[ICD10: R60.0] Diagnosis: Seizure disorder[ICD10: G40.909] Diagnosis: Amputated toe of right foot[ICD10: S98.131A] Diagnosis: Onychogryposis[ICD10: L60.2] Tapan Shirley [address] [place] [address] [place] [address] [place] [address] CPT-4: 12686 09/01/2021 Plan of Care Planned Activity Notes Codes Status Date Referral: [facility] WPtel: [address] , [address] [id number] [place] Referral Records Received 09/21/2022 Care Plan: CARBAMAZEPINE, FREE (TEGRETOL) Pending 09/02/2021 Patient Education: Patient M edication Summary Completed 09/01/2021 Patient Education: Influenza Vaccine Completed 09/01/2021 Referral: [facility] WPtel: [address] [facility] [address] [id number] [place] Referral Completed 05/28/2021 Referral: General Cardiology Referral Complet ed 01/03/2021 Referral: General Psychologist Referral Close d Instructions Comment Date Leonid is a Male being seen living at [facility]. Initial BPS visit 01/2020. PMHx including DMII, CAD w/ 5 stents, Depression, Seizure Disorder and CKD stage 3. He moved into [facility] in 12/2019 but after a hospitalization 05/2021 he moved to the [facility] to have closer nursing attention. 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 Msg sent to nursing inquiring what changes were made and to make sure patient did in fact attend appt. Ordering a1c today. Edema Encourage daily use (on in the morning, off at night) of compression stockings. elevation of feet, increase activity as tolerated, and avoid added sodium. Monitor for open skin sores. Checking BMP today to monitor electrolytes and kidney function. Onychogryposis (*8*) toenails debrided today, (*4*) on left foot, (*4*) on right foot. Medical grade nail clippers and electric dremel used to significantly reduce length & thickness. Anti-fungal treatment options reviewed, discussion deferred as treatment not appropriate or beneficial to patient. Patient tolerated procedure well. . 09/01/2021
--- OUTSIDE RECORDS SUMMARY | 2022-11-10 00:24 | XMS_ITS | CCD ---
Author Name Tapan Shirley PA-C Address [address] [place] [address] Phone Organization [facility] Phone Care Team Providers Care Patient Educator Name Role Phone Tapan Shirley PA-C Primary Care Provider Unavailabl e Tapan Shirley PA-C Chronic Care Management Unavaila ble Summary Purpose DataExchange Insurance Providers Payer name Policy type / Coverage type Covered republican ID Effective Begin Date Effective End Date [place] Part B [id number] Unknown Unknown Medicaid ID Medicare Part B [id number] Unknown Unknown Family history Sister Brittany Suggs [...] Jail 09/03/19 [address]: 7427104 Non-Smoker / No History of Smoking 09/02/[address]: 375083670 No Alcohol Consum ption 09/02/2020 Allergies, Adverse Reactions, Alerts Substance Reaction Codes Entered Date Inactivated Date Status LISINOPRIL RxNorm: 68172 02/12/2020 No Inactive Da te Active Metformin [...] ICD-10: S98. 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 ICD-10: Z79.4 09/01 Active Onychogryposis ICD-10: L60.2 ICD-9: 703.8 09/01/2021 Active Seizure disorder ICD-10: G40.909 ICD-9: 345.90 09/01/2021 Active Muscular pain ICD-10: M79.10 ICD-9: 729.1 08/04/2021 Active Pain of right heel ICD-10: M79.671 ICD-9: 729.5 08/04/2021 Active Coronary artery disease invo lving [place] coronary artery of [place] heart, angina presence unspecified ICD-10: I25.10 ICD-9: [...] 50 mcg/0.5 mL intramuscular suspension, kit RxNorm: 0278288 Administer 1/2 Milliliter(s) Intramuscular one time Nursing please administer upon arrival and once administered post a bridge message with date of administration, weed thinner, 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 10/09/19 22 022 Inactive shingrix step 1 Shingrix (PF) 50 mcg/0.5 mL intramuscular suspension, kit RxNorm: 2999660 Administer 1/2 Milliliter(s) Intramuscular one time Nursing please administer upon arrival and once administered post a bridge message with date of administration, weed thinner, 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 10/09/19 22 022 Inactive shingrix step 1 tetanus,diphtheria toxoid ped (PF) 5 Lf unit-25 Lf unit/0.5 mL IM susp RxNorm: 28 Inject 1 Intramuscular once ADMINISTER PER CDC GUIDELINES 10/08/19 22 022 Inactive Tdap dx: tetanus prophylaxis, please dispense syringe and needle Novolog Flexpen U-100 Insulin aspart 100 unit/mL (3 mL) subcutaneous RxNorm: 9287950 Inject 10 Unit(s) Subcutaneous QHS every night at bedtime with nighttime snack 10/08/19 22 022 Inactive Shingrix (PF) 50 mcg/0.5 mL intramuscular suspension, kit RxNorm: 2155441 ADMINISTER 2-DOSE SERIES PER CDC GUIDELINES 10/08/19 22 022 Inactive Novolog Flexpen U-100 Insulin aspart 100 unit/mL (3 mL) subcutaneous RxNorm: 6159796 Inject 36 Unit(s) Subcutaneous TID in addition to sliding scale 10/08/19 22 022 Inactive cholecalciferol (vitamin D3) 1,250 mcg (50,000 unit) capsule RxNorm: 670061 Take 1 Capsule(s) Oral QW once a week 10/08/19 22 No Stop Date Active tetanus,diphtheria toxoid ped (PF) 5 Lf unit-25 Lf unit/0.5 mL IM susp RxNorm: 28 Inject 1 Intramuscular once ADMINISTER PER CDC GUIDELINES 10/08/19 22 022 Active Tdap dx: tetanus prophylaxis, please dispense syringe and needle Shingrix (PF) 50 mcg/0.5 mL intramuscular suspension, kit RxNorm: 6041752 ADMINISTER 2-DOSE SERIES PER CDC GUIDELINES 10/08/19 22 Active Novofine Autocover 30 gauge x 1/3 needle RxNorm: Use 1 Miscellaneous UD as directed Use 1 needle as directed to administer insulin 5 times a day Dx:E11.42. 10/03/19 Inactive ok to substitute with any covered alternative pen needle benzoyl peroxide 10 % topical cleanser RxNorm: 880208 Apply 1 Application Topical QD apply to face, wash rinse and dry once daily (may change to QOD if drying) 08/19/19 022 Inactive (%covered by insurance) #60ml refill 11 dx: acne Lyrica 100 mg capsule RxNorm: 432110 Take 1 Capsule(s) Oral QHS every night at bedtime Take 1 capsule by mouth once daily at bedtime 08/19/19 022 Inactive benzoyl peroxide 10 % topical cleanser RxNorm: 263705 Apply 1 Application Topical QD apply to face, wash rinse and dry once daily (may change to QOD if drying) 08/19/19 22 022 Inactive (%covered by insurance) #60ml refill 11 dx: acne benzoyl peroxide 10 % topical cleanser RxNorm: 550233 Apply 1 Application Topical QD apply to face, wash rinse and dry once daily (may change to QOD if drying) 08/19/19 22 022 Inactive (%covered by insurance) #60ml refill 11 dx: acne Lyrica 50 mg capsule RxNorm: 799648 Take 1 Capsule(s) Oral QAM every morning Take 1 capsule by mouth once daily 08/19/19 22 022 Inactive benzoyl peroxide 10 % topical cleanser RxNorm: 532239 Apply 1 Application Topical QD apply to face, wash rinse and dry once daily (may change to QOD if drying) 08/19/19 22 022 Inactive (%covered by insurance) #60ml refill 11 dx: acne Lyrica 100 mg capsule RxNorm: 976232 Take 1 Capsule(s) Oral QHS every night at bedtime Take 1 capsule by mouth once daily at bedtime 08/16/19 22 022 Inactive Lyrica 50 mg capsule RxNorm: 314419 Take 1 Capsule(s) Oral QAM every morning Take 1 capsule by mouth once daily 08/16/19 22 022 Inactive Levemir FlexTouch U-100 Insulin 100 unit/mL (3 mL) subcutaneous pen RxNorm: 327372 Inject 86 Unit(s) Subcutaneous BID 08/05/19 22 022 Inactive d/c 83units BID Lyrica 100 mg capsule RxNorm: 614462 Take 1 Capsule(s) Oral QHS every night at bedtime Take 1 capsule by mouth once daily at bedtime 07/14/19 22 022 Inactive Lyrica 50 mg capsule RxNorm: 865941 Take 1 Capsule(s) Oral QAM every morning Take 1 capsule by mouth once daily 07/14/19 22 022 Inactive Levemir FlexTouch U-100 Insulin 100 unit/mL (3 mL) subcutaneous pen RxNorm: 980444 Inject 83 Unit(s) Subcutaneous BID 07/08/19 22 [...] test strip hydralazine 50 mg tablet RxNorm: 907111 Take 1 Tablet(s) Oral QID 05/05/20 21 Inactive isosorbide mononitrate ER 30 mg tablet,extended release 24 hr RxNorm: 725603 Take 1 Tablet(s) Oral QD 05/05/20 No Stop Date Active venlafaxine ER 225 mg tablet,extended release 24 hr RxNorm: 001646 Take 1 Tablet(s) Oral QD 05/05/20 Inactive venlafaxine ER 225 mg tablet,extended release 24 hr RxNorm: 715947 Take 1 Tablet(s) Oral QD 05/05/20 Inactive hydralazine 50 mg tablet RxNorm: 693075 Take 1 Tablet(s) Oral QID 05/05/20 Inactive aspirin 81 mg tablet,delayed release RxNorm: 618006 Take 1 Tablet(s) Oral QD 03/31/20 Inactive Zetia 10 mg tablet RxNorm: 055663 Take 1 Tablet(s) Oral QD 03/31/20 Inactive Vitamin D2 1,250 mcg (50,000 unit) capsule RxNorm: 7784195 Take 1 Capsule(s) Oral QW once a week x 12 weeks 03/31/20 Inactive Vitamin D2 1,250 mcg (50,000 unit) capsule RxNorm: 4508527 Take 1 Capsule(s) Oral QW once a week 03/31/20 Inactive Zetia 10 mg tablet RxNorm: 204096 Take 1 Tablet(s) Oral QD 03/31/20 021 Inactive hydralazine 25 mg tablet RxNorm: 358235 Take 1 Tablet(s) Oral QID 03/31/20 021 Inactive hydralazine 25 mg tablet RxNorm: 040084 Take 1 Tablet(s) Oral QID 03/31/20 021 Inactive hydralazine 10 mg tablet RxNorm: 583915 Take 1 Tablet(s) Oral QID 03/03/20 021 Inactive cephalexin 500 mg tablet RxNorm: 020059 Take 1 Tablet(s) Oral QID 02/27/20 021 Inactive cephalexin 500 mg tablet RxNorm: 286496 Take 1 Tablet(s) Oral QID 02/27/20 021 Inactive lisinopril 40 mg tablet RxNorm: 214188 Take 1 Tablet(s) Oral QD 02/11/20 023 Inactive Eliquis 5 mg tablet RxNorm: 9023275 Take 1 Tablet(s) Oral BID 01/05/20 022 Inactive Eliquis 5 mg tablet RxNorm: 5317721 Take 2 Tablet(s) Oral QD 01/01/20 21 021 Inactive Lyrica 50 mg capsule RxNorm: 779471 Take 1 Capsule(s) Oral QAM every morning 12/24/19 021 Inactive Lyrica 100 mg capsule RxNorm: 179817 Take 1 Capsule(s) Oral QHS every night at bedtime 12/24/19 021 Inactive clotrimazole 1 % topical cream RxNorm: 389067 Apply to right foot and toes Topical BID 12/04/19 21 023 Inactive metoprolol succinate ER 200 mg tablet,extended release 24 hr RxNorm: 582196 Take 1 Tablet(s) Oral QD 12/04/19 21 023 Inactive ciprofloxacin 500 mg tablet RxNorm: 850976 Take 1 Tablet(s) Oral QD 11/30/19 21 021 Inactive DX ofloxacin otic drops Accu-Chek Guide test strips RxNorm: USE 1 TO CHECK GLUCOSE 4 TIMES DAILY AND NEEDED 11/15/19 21 023 Inactive Blood Glucose Test strips RxNorm: Use 1 Test Strip QID at PRN 11/05/19 21 023 Inactive E11.42 lisinopril 30 mg tablet RxNorm: 728542 Take 1 Tablet(s) Oral QD 10/30/19 021 Inactive lisinopril 20 mg tablet RxNorm: 974420 Take 1 Tablet(s) Oral QD 10/23/19 21 021 Inactive lisinopril 20 mg tablet RxNorm: 496999 Take 1 Tablet(s) Oral QD 10/23/19 021 Inactive lisinopril 10 mg tablet RxNorm: 612474 Take 1 Tablet(s) Oral QD 10/02/19 021 Inactive icosapent ethyl 1 gram capsule RxNorm: 7264694 Take 2 Capsule(s) (2 gm) Oral BID with meals 09/12/19 022 Inactive Okay to dispense one 2gm tab if you have that available. icosapent ethyl 1 gram capsule RxNorm: 9600427 Take 2 Capsule(s) Oral BID 09/12/19 021 Inactive Okay to dispense one 2gm tab if you have that available. amlodipine 10 mg tablet RxNorm: 589838 Take 1 Tablet(s) Oral QD 09/04/19 022 Inactive aspirin 81 mg tablet,delayed release RxNorm: 929115 Take 1 Tablet(s) Oral QD 09/04/19 21 021 Inactive Levemir FlexTouch U-100 Insulin 100 unit/mL (3 mL) subcutaneous pen RxNorm: 551187 Inject 150 Unit(s) Subcutaneous BID 09/04/19 21 022 Inactive venlafaxine ER 150 mg tablet,extended release 24 hr RxNorm: 253123 Take 1 Tablet(s) Oral QD 09/04/19 21 021 Inactive clotrimazole-betame thasone 1 %-0.05 % topical cream RxNorm: 944401 Apply to rash on red area on left abdomen/chest Topical BID 08/10/19 21 Inactive amlodipine 5 mg tablet RxNorm: 677637 Take 1 Tablet(s) Oral QD 07/31/19 Inactive cephalexin 500 mg tablet RxNorm: 741839 Take 1 Tablet(s) Oral BID BID - Twice Daily 07/31/19 021 Inactive Start 08/01/20 pantoprazole 40 mg tablet,delayed release RxNorm: 728266 Take 1 Tablet(s) Oral QAM every morning 07/08/19 022 Inactive senna 8.6 mg tablet RxNorm: 688382 Take 1 Tablet(s) Oral QD 07/08/19 022 Inactive pravastatin 80 mg tablet RxNorm: 493223 Take 1 Tablet(s) Oral QHS every night at bedtime 07/08/19 022 Inactive clotrimazole 1 % topical cream RxNorm: 435874 Apply to bilateral groin areas Topical BID 07/08/19 022 Inactive carbamazepine 200 mg tablet RxNorm: 492388 Take 1 Tablet(s) Oral BID 07/08/19 022 Inactive torsemide 20 mg tablet RxNorm: 142025 Take 1 Tablet(s) Oral QD 07/08/19 023 Inactive clopidogrel 75 mg tablet RxNorm: 762617 Take 1 Tablet(s) Oral QD 07/08/19 021 Inactive Blood Glucose Test strips RxNorm: Use 1 Test Strip QID at PRN 07/08/19 021 Inactive E11.42 Novolog Flexpen U-100 Insulin aspart 100 unit/mL (3 mL) subcutaneous RxNorm: 5045350 Administer per sliding scale Milliliter(s) Subcutaneous TID 151-200: 10 u; 201-250: 20 u; 251-300: 30 u; 301-350: 40 u; 351-400: 50 u. 07/08/19 21 022 Inactive lisinopril 5 mg tablet RxNorm: 095163 Take 1 Tablet(s) Oral QD 07/08/19 021 Inactive Novolog Flexpen U-100 Insulin aspart 100 unit/mL (3 mL) subcutaneous RxNorm: 1972808 Inject 85 Unit(s) Subcutaneous TID 07/08/19 022 Inactive metoprolol succinate ER 200 mg tablet,extended release 24 hr RxNorm: 262613 Take 1 Tablet(s) Oral QD 07/08/19 21 Inactive Vitamin D3 25 mcg (1,000 unit) tablet RxNorm: 011854 Take 1 Tablet(s) Oral QD 07/08/19 021 Inactive isosorbide dinitrate 30 mg tablet RxNorm: 885785 Take 1 Tablet(s) Oral QD 07/08/19 021 Inactive Levemir FlexTouch U-100 Insulin 100 unit/mL (3 mL) subcutaneous pen RxNorm: 404452 Inject 140 Unit(s) Subcutaneous BID 07/08/19 Inactive venlafaxine 75 mg tablet RxNorm: 228494 Take 1 Tablet(s) Oral QD 07/08/19 Inactive acetaminophen 500 mg tablet RxNorm: 682002 Take 1 Tablet(s) Oral TID as needed for headache 06/18/19 Inactive acetaminophen 500 mg tablet RxNorm: 615434 Take 1 Tablet(s) Oral TID as needed for headache 06/18/19 Inactive Lyrica 100 mg capsule RxNorm: 935683 Take 1 Capsule(s) Oral QHS every night at bedtime 06/11/19 Inactive Lyrica 50 mg capsule RxNorm: 138159 Take 1 Capsule(s) Oral QAM every morning 06/10/19 021 Inactive hydrocortisone 2.5 % topical cream RxNorm: 196381 Apply to bilateral groin creases Topical BID 05/15/20 20 021 Inactive clotrimazole 1 % topical cream RxNorm: 626169 Apply to bilateral groin areas Topical BID 05/15/20 20 021 Inactive Lyrica 50 mg capsule RxNorm: 568145 Take 1 Capsule(s) Oral QAM every morning 05/14/20 20 020 Inactive Lyrica 100 mg capsule RxNorm: 048368 Take 1 Capsule(s) Oral QHS every night [...] Inactive Nystop 100,000 unit/gram topical powder RxNorm: 439111 Apply to abd folds, under breasts and L side of groin Topical BID x 14 days, then BID PRN 04/08/20 20 021 Inactive dx: yeast dermatitis Lyrica 100 mg capsule RxNorm: 605015 Take 1 Capsule(s) Oral QHS every night at bedtime 03/13/20 20 Inactive Lyrica 50 mg capsule RxNorm: 712203 Take 1 Capsule(s) Oral QAM every morning 03/13/20 20 Inactive ketoconazole 2 % shampoo RxNorm: 267185 Apply Topical two times a week with showers 03/11/20 20 Inactive cholecalciferol (vitamin D3) 50 mcg (2,000 unit) tablet RxNorm: 242682 Take 1 Tablet(s) Oral QD 03/11/20 20 Inactive Zetia 10 mg tablet RxNorm: 786351 Take 1 Tablet(s) Oral QD 03/07/20 20 021 Inactive Zetia 10 mg tablet RxNorm: 610573 Take 1 Tablet(s) Oral QD 03/07/20 20 020 Inactive Lyrica 50 mg capsule RxNorm: 166628 Take 1 Capsule(s) Oral QAM every morning 02/15/20 20 Inactive Lyrica 100 mg capsule RxNorm: 545994 Take 1 Capsule(s) Oral QHS every night at bedtime 02/15/20 20 Inactive Lyrica 100 mg capsule RxNorm: 593008 Take 1 Capsule(s) Oral QHS every night at bedtime 02/15/20 20 Inactive Lyrica 50 mg capsule RxNorm: 723170 Take 1 Capsule(s) Oral QAM every morning 02/15/20 20 Inactive venlafaxine ER 75 mg capsule,extended release 24 hr RxNorm: 240976 Take 3 Capsule(s) Oral QD 06/12/19 22 Active polyethylene glycol 3350 17 gram/dose oral powder RxNorm: 033067 Take 17=1 capful Gram(s) Oral BID as needed mix with 4-8oz of liquid 06/12/19 22 Active Levemir FlexTouch U-100 Insulin 100 unit/mL (3 mL) subcutaneous pen RxNorm: 739771 Inject 80 Unit(s) Subcutaneous BID 07/14/19 23 023 Inactive loperamide 2 mg capsule RxNorm: 512074 Take 1 Capsule(s) Oral QID as needed 06/12/19 22 Active Novolog Flexpen U-100 Insulin aspart 100 unit/mL (3 mL) subcutaneous RxNorm: 1780666 Insert 30 Unit(s) Subcutaneous TID with meals [...] Result Date S ervice Location PHQ-9 PHQ9 48623-4 4 10/07/2021 Unknown PHQ-9 PHQ9 24670-1 4 10/07/2021 Unknown Procedures Procedure Codes Date SYS BP > OR = 140 CPT-4: G8753 10/07/2021 CUI BP > OR = 90 CPT-4: G8755 10/07/2021 ADVNC CARE PLAN IN RCRD CPT-4: 1157F 10/08/19 AMNT PAIN NOTED NONE PRSNT CPT-4: 1126F 10/07 FALL RISK ASSESSMENT DOCD CPT-4: 3288F 2021 PT INELIG NEG SCRN DEPRES SNOMED CT: [id number] CPT-4: G8510 10/07/2021 [employer]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 [id number] [place] Referral Records Received 09/21/2022 Patient Education: Patient Ivan edication Summary Completed 10/07/2021 Patient Education: Influenza Vaccine Completed 10/07/2021 Referral: [facility] WPtel: [phone] [id number] [place] Referral Completed 05/28/2021 Referral: General Cardiology [...] Sister Jyotsna involved in his care cell# [phone] Guardian: Don (tapan met in person 09/01/21), now has Lexii (same group as don)Lab Schedule: Mar-* 10/06/2022 Diabetes A1c 9.1H. Now established with endo, defer further treatment to them for DM management. SBPs continue to be elevated even though on multiple medication to control BP. refer to test driller for further eval. Chronic Kidney Disease Reviewed labs completed 09/18/21, GFR >60nl, Cr 1.02nl, Hgb 12.2. Continue to monitor cbc and BMP/CMP [id number]. Edema Continue to encourage daily wearing of compression stockings. Nursing reminded to educate staff on proper application of socks so as not to leave indents. BMP reviewed and w/o concerns. Electrolytes wnl.=. Preventative health care BPS AWV completed today. Vaccines due, ordered for nursing to administer. . 10/07/2021
--- OUTSIDE RECORDS SUMMARY | 2022-11-10 00:24 | XMS_ITS | CCD ---
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 Claims Examiner Name Role Phone Tapan Shirley PA-C Primary Care Provider Unavailabl e aTpan Shirley PA-C Chronic Care Management Unavaila ble Summary Purpose DataExchange Insurance Providers Payer name Policy type / Coverage type Covered republican ID Effective Begin Date Effective End Date [place] [id number] Unknown Unknown [place] [id number] Unknown Unknown Family history Runs in the family Diagnosis Age At Onset No Known Diseases N/A Social History Social History Element Codes Description Effec tive Dates Living arrangements Unknown Shelter 09/03/[address]: 5790254 Non-Smoker / No History of Smoking 09/02/[address]: 498703768 No Alcohol Consum ption 09/02/2020 Allergies, Adverse Reactions, Alerts Substance Reaction Codes Entered Date Inactivated Date Status LISINOPRIL RxNorm: 58616 02/12/2020 No Inactive Da te Active Metformin HCl Unknown 02/12/2020 No Inactive Cristiano e Active Problems Condition Codes Effective Dates Condition St atus Amputated toe of right foot ICD-10: S98. 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 ICD-10: Z79.4 09/01 [...] 08/04/2021 Active Coronary artery disease invo lving [place] coronary artery of [place] heart, angina presence unspecified ICD-10: I25.10 ICD-9: [...] benzoyl peroxide 10 % topical cleanser RxNorm: 586955 Apply 1 Application Topical QD apply to face, wash rinse and dry once daily (may change to QOD if drying) 08/19/19 22 022 Inactive (%covered by insurance) #60ml refill 11 dx: acne Lyrica 100 mg capsule RxNorm: 413956 Take 1 Capsule(s) Oral QHS every night at bedtime Take 1 capsule by mouth once daily at bedtime 08/19/19 022 Inactive benzoyl peroxide 10 % topical cleanser RxNorm: 211218 Apply 1 Application Topical QD apply to face, wash rinse and dry once daily (may change to QOD if drying) 08/19/19 22 022 Inactive (%covered by insurance) #60ml refill 11 dx: acne benzoyl peroxide 10 % topical cleanser RxNorm: 852362 Apply 1 Application Topical QD apply to face, wash rinse and dry once daily (may change to QOD if drying) 08/19/19 22 022 Inactive (%covered by insurance) #60ml refill 11 dx: acne Lyrica 50 mg capsule RxNorm: 453435 Take 1 Capsule(s) Oral QAM every morning Take 1 capsule by mouth once daily 08/19/19 022 Inactive benzoyl peroxide 10 % topical cleanser RxNorm: 073888 Apply 1 Application Topical QD apply to face, wash rinse and dry once daily (may change to QOD if drying) 08/19/19 022 Inactive (%covered by insurance) #60ml refill 11 dx: acne Lyrica 100 mg capsule RxNorm: 323511 Take 1 Capsule(s) Oral QHS every night at bedtime Take 1 capsule by mouth once daily at bedtime 08/16/19 022 Inactive Lyrica 50 mg capsule RxNorm: 989378 Take 1 Capsule(s) Oral QAM every morning Take 1 capsule by mouth once daily 08/16/19 022 Inactive Levemir FlexTouch U-100 Insulin 100 unit/mL (3 mL) subcutaneous pen RxNorm: 598350 Inject 86 Unit(s) Subcutaneous BID 08/05/19 22 022 Inactive d/c 83units BID Lyrica 100 mg capsule RxNorm: 175345 Take 1 Capsule(s) Oral QHS every night at bedtime Take 1 capsule by mouth once daily at bedtime 07/14/19 22 Inactive Lyrica 50 mg capsule RxNorm: 508736 Take 1 Capsule(s) Oral QAM every morning Take 1 capsule by mouth once daily 07/14/19 22 Inactive Levemir FlexTouch U-100 Insulin 100 unit/mL (3 mL) subcutaneous pen RxNorm: 621105 Inject 83 Unit(s) Subcutaneous BID 07/08/19 22 [...] test strip hydralazine 50 mg tablet RxNorm: 207349 Take 1 Tablet(s) Oral QID 05/05/20 Inactive isosorbide mononitrate ER 30 mg tablet,extended release 24 hr RxNorm: 144693 Take 1 Tablet(s) Oral QD 05/05/20 No Stop Date Active venlafaxine ER 225 mg tablet,extended release 24 hr RxNorm: 805318 Take 1 Tablet(s) Oral QD 05/05/20 Inactive venlafaxine ER 225 mg tablet,extended release 24 hr RxNorm: 973391 Take 1 Tablet(s) Oral QD 05/05/20 022 Inactive hydralazine 50 mg tablet RxNorm: 902545 Take 1 Tablet(s) Oral QID 05/05/20 Inactive aspirin 81 mg tablet,delayed release RxNorm: 786159 Take 1 Tablet(s) Oral QD 03/31/20 Inactive Vitamin D2 1,250 mcg (50,000 unit) capsule RxNorm: 8095825 Take 1 Capsule(s) Oral QW once a week x 12 weeks 03/31/20 Inactive Zetia 10 mg tablet RxNorm: 406760 Take 1 Tablet(s) Oral QD 03/31/20 Inactive Vitamin D2 1,250 mcg (50,000 unit) capsule RxNorm: 3125519 Take 1 Capsule(s) Oral QW once a week 03/31/20 Inactive Zetia 10 mg tablet RxNorm: 930495 Take 1 Tablet(s) Oral QD 03/31/20 Inactive hydralazine 25 mg tablet RxNorm: 565101 Take 1 Tablet(s) Oral QID 03/31/20 Inactive hydralazine 25 mg tablet RxNorm: 554621 Take 1 Tablet(s) Oral QID 03/31/20 Inactive hydralazine 10 mg tablet RxNorm: 515882 Take 1 Tablet(s) Oral QID 03/03/20 Inactive cephalexin 500 mg tablet RxNorm: 333219 Take 1 Tablet(s) Oral QID 02/27/20 21 021 Inactive cephalexin 500 mg tablet RxNorm: 367063 Take 1 Tablet(s) Oral QID 02/27/20 021 Inactive lisinopril 40 mg tablet RxNorm: 334503 Take 1 Tablet(s) Oral QD 02/11/20 023 Inactive Eliquis 5 mg tablet RxNorm: 8516766 Take 1 Tablet(s) Oral BID 01/05/20 21 022 Inactive Eliquis 5 mg tablet RxNorm: 5733363 Take 2 Tablet(s) Oral QD 01/01/20 21 021 Inactive Lyrica 50 mg capsule RxNorm: 847827 Take 1 Capsule(s) Oral QAM every morning 12/24/19 021 Inactive Lyrica 100 mg capsule RxNorm: 939694 Take 1 Capsule(s) Oral QHS every night at bedtime 12/24/19 021 Inactive clotrimazole 1 % topical cream RxNorm: 396980 Apply to right foot and toes Topical BID 12/04/19 21 023 Inactive metoprolol succinate ER 200 mg tablet,extended release 24 hr RxNorm: 829344 Take 1 Tablet(s) Oral QD 12/04/19 21 023 Inactive ciprofloxacin 500 mg tablet RxNorm: 094337 Take 1 Tablet(s) Oral QD 11/30/19 021 Inactive DX ofloxacin otic drops Accu-Chek Guide test strips RxNorm: USE 1 TO CHECK GLUCOSE 4 TIMES DAILY AND NEEDED 11/15/19 21 023 Inactive Blood Glucose Test strips RxNorm: Use 1 Test Strip QID at PRN 11/05/19 21 023 Inactive E11.42 lisinopril 30 mg tablet RxNorm: 525884 Take 1 Tablet(s) Oral QD 10/30/19 21 021 Inactive lisinopril 20 mg tablet RxNorm: 975445 Take 1 Tablet(s) Oral QD 10/23/19 21 021 Inactive lisinopril 20 mg tablet RxNorm: 969215 Take 1 Tablet(s) Oral QD 10/23/19 21 021 Inactive lisinopril 10 mg tablet RxNorm: 831187 Take 1 Tablet(s) Oral QD 10/02/19 21 021 Inactive icosapent ethyl 1 gram capsule RxNorm: 4704646 Take 2 Capsule(s) (2 gm) Oral BID with meals 09/12/19 022 Inactive Okay to dispense one 2gm tab if you have that available. icosapent ethyl 1 gram capsule RxNorm: 5471683 Take 2 Capsule(s) Oral BID 09/12/19 021 Inactive Okay to dispense one 2gm tab if you have that available. amlodipine 10 mg tablet RxNorm: 133689 Take 1 Tablet(s) Oral QD 09/04/19 Inactive aspirin 81 mg tablet,delayed release RxNorm: 062046 Take 1 Tablet(s) Oral QD 09/04/19 Inactive Levemir FlexTouch U-100 Insulin 100 unit/mL (3 mL) subcutaneous pen RxNorm: 885575 Inject 150 Unit(s) Subcutaneous BID 09/04/19 Inactive venlafaxine ER 150 mg tablet,extended release 24 hr RxNorm: 751589 Take 1 Tablet(s) Oral QD 09/04/19 Inactive clotrimazole-betame thasone 1 %-0.05 % topical cream RxNorm: 898851 Apply to rash on red area on left abdomen/chest Topical BID 08/10/19 21 021 Inactive amlodipine 5 mg tablet RxNorm: 572446 Take 1 Tablet(s) Oral QD 07/31/19 21 Inactive cephalexin 500 mg tablet RxNorm: 487518 Take 1 Tablet(s) Oral BID BID - Twice Daily 07/31/19 21 021 Inactive Start 08/01/20 pantoprazole 40 mg tablet,delayed release RxNorm: 721991 Take 1 Tablet(s) Oral QAM every morning 07/08/19 21 022 Inactive senna 8.6 mg tablet RxNorm: 385591 Take 1 Tablet(s) Oral QD 07/08/19 21 022 Inactive pravastatin 80 mg tablet RxNorm: 895343 Take 1 Tablet(s) Oral QHS every night at bedtime 07/08/19 022 Inactive clotrimazole 1 % topical cream RxNorm: 086121 Apply to bilateral groin areas Topical BID 07/08/19 21 Inactive carbamazepine 200 mg tablet RxNorm: 158152 Take 1 Tablet(s) Oral BID 07/08/19 21 022 Inactive torsemide 20 mg tablet RxNorm: 594350 Take 1 Tablet(s) Oral QD 07/08/19 21 023 Inactive clopidogrel 75 mg tablet RxNorm: 605337 Take 1 Tablet(s) Oral QD 07/08/19 021 Inactive Blood Glucose Test strips RxNorm: Use 1 Test Strip QID at PRN 07/08/19 Inactive E11.42 Novolog Flexpen U-100 Insulin aspart 100 unit/mL (3 mL) subcutaneous RxNorm: 9456829 Administer per sliding scale Milliliter(s) Subcutaneous TID 151-200: 10 u; 201-250: 20 u; 251-300: 30 u; 301-350: 40 u; 351-400: 50 u. 07/08/19 21 022 Inactive lisinopril 5 mg tablet RxNorm: 492758 Take 1 Tablet(s) Oral QD 07/08/19 Inactive Novolog Flexpen U-100 Insulin aspart 100 unit/mL (3 mL) subcutaneous RxNorm: 7127817 Inject 85 Unit(s) Subcutaneous TID 07/08/19 21 022 Inactive metoprolol succinate ER 200 mg tablet,extended release 24 hr RxNorm: 955878 Take 1 Tablet(s) Oral QD 07/08/19 21 Inactive Vitamin D3 25 mcg (1,000 unit) tablet RxNorm: 880501 Take 1 Tablet(s) Oral QD 07/08/19 021 Inactive isosorbide dinitrate 30 mg tablet RxNorm: 507938 Take 1 Tablet(s) Oral QD 07/08/19 021 Inactive Levemir FlexTouch U-100 Insulin 100 unit/mL (3 mL) subcutaneous pen RxNorm: 792462 Inject 140 Unit(s) Subcutaneous BID 07/08/19 021 Inactive venlafaxine 75 mg tablet RxNorm: 747938 Take 1 Tablet(s) Oral QD 07/08/19 Inactive acetaminophen 500 mg tablet RxNorm: 501768 Take 1 Tablet(s) Oral TID as needed for headache 06/18/19 Inactive acetaminophen 500 mg tablet RxNorm: 450893 Take 1 Tablet(s) Oral TID as needed for headache 06/18/19 Inactive Lyrica 100 mg capsule RxNorm: 422411 Take 1 Capsule(s) Oral QHS every night at bedtime 06/11/19 021 Inactive Lyrica 50 mg capsule RxNorm: 555442 Take 1 Capsule(s) Oral QAM every morning 06/10/19 21 021 Inactive hydrocortisone 2.5 % topical cream RxNorm: 086624 Apply to bilateral groin creases Topical BID 05/15/20 20 021 Inactive clotrimazole 1 % topical cream RxNorm: 494557 Apply to bilateral groin areas Topical BID 05/15/20 20 021 Inactive Lyrica 50 mg capsule RxNorm: 602744 Take 1 Capsule(s) Oral QAM every morning 05/14/20 20 020 Inactive Lyrica 100 mg capsule RxNorm: 051511 Take 1 Capsule(s) Oral QHS every night [...] Inactive Nystop 100,000 unit/gram topical powder RxNorm: 073276 Apply to abd folds, under breasts and L side of groin Topical BID x 14 days, then BID PRN 04/08/20 20 Inactive dx: yeast dermatitis Lyrica 100 mg capsule RxNorm: 985909 Take 1 Capsule(s) Oral QHS every night at bedtime 03/13/20 20 Inactive Lyrica 50 mg capsule RxNorm: 510596 Take 1 Capsule(s) Oral QAM every morning 03/13/20 20 Inactive ketoconazole 2 % shampoo RxNorm: 789270 Apply Topical two times a week with showers 03/11/20 20 Inactive cholecalciferol (vitamin D3) 50 mcg (2,000 unit) tablet RxNorm: 492164 Take 1 Tablet(s) Oral QD 03/11/20 20 Inactive Zetia 10 mg tablet RxNorm: 104192 Take 1 Tablet(s) Oral QD 03/07/20 20 021 Inactive Zetia 10 mg tablet RxNorm: 677233 Take 1 Tablet(s) Oral QD 03/07/20 20 Inactive Lyrica 50 mg capsule RxNorm: 184370 Take 1 Capsule(s) Oral QAM every morning 02/15/20 20 Inactive Lyrica 100 mg capsule RxNorm: 622739 Take 1 Capsule(s) Oral QHS every night at bedtime 02/15/20 20 Inactive Lyrica 100 mg capsule RxNorm: 616214 Take 1 Capsule(s) Oral QHS every night at bedtime 02/15/20 20 Inactive Lyrica 50 mg capsule RxNorm: 477256 Take 1 Capsule(s) Oral QAM every morning 02/15/20 20 020 Inactive venlafaxine ER 75 mg capsule,extended release 24 hr RxNorm: 342168 Take 3 Capsule(s) Oral QD 06/12/19 22 Active polyethylene glycol 3350 17 gram/dose oral powder RxNorm: 203284 Take 17=1 capful Gram(s) Oral BID as needed mix with 4-8oz of liquid 06/12/19 22 Active Levemir FlexTouch U-100 Insulin 100 unit/mL (3 mL) subcutaneous pen RxNorm: 353936 Inject 80 Unit(s) Subcutaneous BID 07/14/19 23 023 Inactive loperamide 2 mg capsule RxNorm: 075935 Take 1 Capsule(s) Oral QID as needed 06/12/19 22 Active Novolog Flexpen U-100 Insulin aspart 100 unit/mL (3 mL) subcutaneous RxNorm: 8277144 Insert 30 Unit(s) Subcutaneous TID with meals [...] Status Date Referral: [facility] WPtel: [address], [address] [id number] [place] Referral Records Received 09/21/2022 Referral: [facility] WPtel: [address] [id number] [place] Referral Completed 05/28/2021 Referral: General Cardiology Referral Complet ed 01/03/2021 Referral: General Psychologist Referral Close d Instructions Comment Date Leonid is a Male being seen living at [facility]. Initial [facility] visit 01/2020. PMHx including DMII, CAD w/ 5 stents, Depression, Seizure Disorder and CKD stage 3. He moved into [facility] in 12/2019 but after a hospitalization 05/2021 he moved to the [facility] to have closer nursing attention. Sister Jyotsna involved in his care cell# [phone] Guardian: Don (tapan met in person 09/01/21), now has Lexii (same group as don)Lab Schedule: * 10/06/2022
--- OUTSIDE RECORDS SUMMARY | 2022-11-10 00:24 | XMS_ITS | CCD ---
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 Medical Receptionist Assistant Name Role Phone Tapan Shirley PA-C Primary Care Provider Unavailabl e Tapan Shirley PA-C Chronic Care Management Unavaila ble Summary Purpose DataExchange Insurance Providers Payer name Policy type / Coverage type Covered green party ID Effective Begin Date Effective End Date [place] [id number] Unknown Unknown [place] [id number] Unknown Unknown Family history Sister Brittany Suggs [...] Jail 09/03/[address]: 3714014 Non-Smoker / No History of Smoking 09/02/[address]: 441662466 No Alcohol Consum ption 09/02/2020 Allergies, Adverse Reactions, Alerts Substance Reaction Codes Entered Date Inactivated Date Status LISINOPRIL RxNorm: 71887 02/12/2020 No Inactive Da te Active Metformin [...] 08/04/2021 Active Coronary artery disease invo lving [place] coronary [...] Fill Instructions pregabalin 50 mg capsule RxNorm: 827975 1 Capsule(s) Oral QAM every morning 10/15/19 22 022 Inactive Shingrix (PF) 50 mcg/0.5 mL intramuscular suspension, kit RxNorm: 7199394 Administer 1/2 Milliliter(s) Intramuscular one time Nursing please administer upon arrival and once administered post a bridge message with date of administration, foam dispenser, 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 10/09/19 22 022 Inactive shingrix step 1 Shingrix (PF) 50 mcg/0.5 mL intramuscular suspension, kit RxNorm: 9311238 Administer 1/2 Milliliter(s) Intramuscular one time Nursing please administer upon arrival and once administered post a bridge message with date of administration, foam dispenser, 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 10/09/19 22 022 Inactive shingrix step 1 Novolog Flexpen U-100 Insulin aspart 100 unit/mL (3 mL) subcutaneous RxNorm: 8419563 Inject 10 Unit(s) Subcutaneous QHS every night at bedtime with nighttime snack 10/08/19 22 Inactive Novolog Flexpen U-100 Insulin aspart 100 unit/mL (3 mL) subcutaneous RxNorm: 2325272 Inject 36 Unit(s) Subcutaneous TID in addition to sliding scale 10/08/19 22 Inactive cholecalciferol (vitamin D3) 1,250 mcg (50,000 unit) capsule RxNorm: 215337 Take 1 Capsule(s) Oral QW once a [...] 50 mcg/0.5 mL intramuscular suspension, kit RxNorm: 8134352 ADMINISTER 2-DOSE SERIES PER CDC GUIDELINES 10/08/19 22 022 Active Shingrix (PF) 50 mcg/0.5 mL intramuscular suspension, kit RxNorm: 2774160 ADMINISTER 2-DOSE SERIES PER CDC GUIDELINES 10/08/19 22 Inactive Novofine Autocover 30 gauge x 1/3 needle RxNorm: Use 1 Miscellaneous UD as directed Use 1 needle as directed to administer insulin 5 times a day Dx:E11.42. 10/03/19 22 Inactive ok to substitute with any covered alternative pen needle benzoyl peroxide 10 % topical cleanser RxNorm: 788576 Apply 1 Application Topical QD apply to face, wash rinse and dry once daily (may change to QOD if drying) 08/19/19 22 022 Inactive (%covered by insurance) #60ml refill 11 dx: acne Lyrica 100 mg capsule RxNorm: 067501 Take 1 Capsule(s) Oral QHS every night at bedtime Take 1 capsule by mouth once daily at bedtime 08/19/19 22 022 Inactive benzoyl peroxide 10 % topical cleanser RxNorm: 208018 Apply 1 Application Topical QD apply to face, wash rinse and dry once daily (may change to QOD if drying) 08/19/19 22 022 Inactive (%covered by insurance) #60ml refill 11 dx: acne benzoyl peroxide 10 % topical cleanser RxNorm: 840031 Apply 1 Application Topical QD apply to face, wash rinse and dry once daily (may change to QOD if drying) 08/19/19 22 022 Inactive (%covered by insurance) #60ml refill 11 dx: acne Lyrica 50 mg capsule RxNorm: 217835 Take 1 Capsule(s) Oral QAM every morning Take 1 capsule by mouth once daily 08/19/19 22 022 Inactive benzoyl peroxide 10 % topical cleanser RxNorm: 242223 Apply 1 Application Topical QD apply to face, wash rinse and dry once daily (may change to QOD if drying) 08/19/19 22 022 Inactive (%covered by insurance) #60ml refill 11 dx: acne Lyrica 100 mg capsule RxNorm: 836647 Take 1 Capsule(s) Oral QHS every night at bedtime Take 1 capsule by mouth once daily at bedtime 08/16/19 22 022 Inactive Lyrica 50 mg capsule RxNorm: 911846 Take 1 Capsule(s) Oral QAM every morning Take 1 capsule by mouth once daily 08/16/19 22 022 Inactive Levemir FlexTouch U-100 Insulin 100 unit/mL (3 mL) subcutaneous pen RxNorm: 135023 Inject 86 Unit(s) Subcutaneous BID 08/05/19 22 022 Inactive d/c 83units BID Lyrica 100 mg capsule RxNorm: 212981 Take 1 Capsule(s) Oral QHS every night at bedtime Take 1 capsule by mouth once daily at bedtime 07/14/19 22 022 Inactive Lyrica 50 mg capsule RxNorm: 857278 Take 1 Capsule(s) Oral QAM every morning Take 1 capsule by mouth once daily 07/14/19 22 022 Inactive Levemir FlexTouch U-100 Insulin 100 unit/mL (3 mL) subcutaneous pen RxNorm: 015240 Inject 83 Unit(s) Subcutaneous BID 07/08/19 22 [...] test strip hydralazine 50 mg tablet RxNorm: 153576 Take 1 Tablet(s) Oral QID 05/05/20 21 Inactive isosorbide mononitrate ER 30 mg tablet,extended release 24 hr RxNorm: 631860 Take 1 Tablet(s) Oral QD 05/05/20 No Stop Date Active venlafaxine ER 225 mg tablet,extended release 24 hr RxNorm: 781364 Take 1 Tablet(s) Oral QD 05/05/20 Inactive venlafaxine ER 225 mg tablet,extended release 24 hr RxNorm: 648671 Take 1 Tablet(s) Oral QD 05/05/20 022 Inactive hydralazine 50 mg tablet RxNorm: 710602 Take 1 Tablet(s) Oral QID 05/05/20 Inactive aspirin 81 mg tablet,delayed release RxNorm: 194644 Take 1 Tablet(s) Oral QD 03/31/20 Inactive Zetia 10 mg tablet RxNorm: 532306 Take 1 Tablet(s) Oral QD 03/31/20 Inactive Vitamin D2 1,250 mcg (50,000 unit) capsule RxNorm: 1316034 Take 1 Capsule(s) Oral QW once a week x 12 weeks 03/31/20 Inactive Vitamin D2 1,250 mcg (50,000 unit) capsule RxNorm: 8033101 Take 1 Capsule(s) Oral QW once a week 03/31/20 Inactive Zetia 10 mg tablet RxNorm: 109673 Take 1 Tablet(s) Oral QD 03/31/20 021 Inactive hydralazine 25 mg tablet RxNorm: 084316 Take 1 Tablet(s) Oral QID 03/31/20 021 Inactive hydralazine 25 mg tablet RxNorm: 094118 Take 1 Tablet(s) Oral QID 03/31/20 021 Inactive hydralazine 10 mg tablet RxNorm: 441974 Take 1 Tablet(s) Oral QID 03/03/20 021 Inactive cephalexin 500 mg tablet RxNorm: 192536 Take 1 Tablet(s) Oral QID 02/27/20 021 Inactive cephalexin 500 mg tablet RxNorm: 370012 Take 1 Tablet(s) Oral QID 02/27/20 021 Inactive lisinopril 40 mg tablet RxNorm: 098205 Take 1 Tablet(s) Oral QD 02/11/20 023 Inactive Eliquis 5 mg tablet RxNorm: 2522895 Take 1 Tablet(s) Oral BID 01/05/20 022 Inactive Eliquis 5 mg tablet RxNorm: 4523705 Take 2 Tablet(s) Oral QD 01/01/20 21 021 Inactive Lyrica 50 mg capsule RxNorm: 798708 Take 1 Capsule(s) Oral QAM every morning 12/24/19 21 021 Inactive Lyrica 100 mg capsule RxNorm: 022649 Take 1 Capsule(s) Oral QHS every night at bedtime 12/24/19 21 021 Inactive clotrimazole 1 % topical cream RxNorm: 210141 Apply to right foot and toes Topical BID 12/04/19 21 023 Inactive metoprolol succinate ER 200 mg tablet,extended release 24 hr RxNorm: 580899 Take 1 Tablet(s) Oral QD 12/04/19 21 023 Inactive ciprofloxacin 500 mg tablet RxNorm: 465805 Take 1 Tablet(s) Oral QD 11/30/19 21 021 Inactive DX ofloxacin otic drops Accu-Chek Guide test strips RxNorm: USE 1 TO CHECK GLUCOSE 4 TIMES DAILY AND NEEDED 11/15/19 21 023 Inactive Blood Glucose Test strips RxNorm: Use 1 Test Strip QID at PRN 11/05/19 21 023 Inactive E11.42 lisinopril 30 mg tablet RxNorm: 561973 Take 1 Tablet(s) Oral QD 10/30/19 21 021 Inactive lisinopril 20 mg tablet RxNorm: 348259 Take 1 Tablet(s) Oral QD 10/23/19 021 Inactive lisinopril 20 mg tablet RxNorm: 084761 Take 1 Tablet(s) Oral QD 10/23/19 21 021 Inactive lisinopril 10 mg tablet RxNorm: 783346 Take 1 Tablet(s) Oral QD 10/02/19 021 Inactive icosapent ethyl 1 gram capsule RxNorm: 3511859 Take 2 Capsule(s) (2 gm) Oral BID with meals 09/12/19 022 Inactive Okay to dispense one 2gm tab if you have that available. icosapent ethyl 1 gram capsule RxNorm: 2627102 Take 2 Capsule(s) Oral BID 09/12/19 21 021 Inactive Okay to dispense one 2gm tab if you have that available. amlodipine 10 mg tablet RxNorm: 492151 Take 1 Tablet(s) Oral QD 09/04/19 022 Inactive aspirin 81 mg tablet,delayed release RxNorm: 291637 Take 1 Tablet(s) Oral QD 09/04/19 21 021 Inactive Levemir FlexTouch U-100 Insulin 100 unit/mL (3 mL) subcutaneous pen RxNorm: 855363 Inject 150 Unit(s) Subcutaneous BID 09/04/19 21 022 Inactive venlafaxine ER 150 mg tablet,extended release 24 hr RxNorm: 094682 Take 1 Tablet(s) Oral QD 09/04/19 21 021 Inactive clotrimazole-betame thasone 1 %-0.05 % topical cream RxNorm: 781729 Apply to rash on red area on left abdomen/chest Topical BID 08/10/19 21 021 Inactive amlodipine 5 mg tablet RxNorm: 871007 Take 1 Tablet(s) Oral QD 07/31/19 21 Inactive cephalexin 500 mg tablet RxNorm: 811531 Take 1 Tablet(s) Oral BID BID - Twice Daily 07/31/19 21 021 Inactive Start 08/01/20 pantoprazole 40 mg tablet,delayed release RxNorm: 629145 Take 1 Tablet(s) Oral QAM every morning 07/08/19 022 Inactive senna 8.6 mg tablet RxNorm: 048207 Take 1 Tablet(s) Oral QD 07/08/19 022 Inactive pravastatin 80 mg tablet RxNorm: 980034 Take 1 Tablet(s) Oral QHS every night at bedtime 07/08/19 022 Inactive clotrimazole 1 % topical cream RxNorm: 417340 Apply to bilateral groin areas Topical BID 07/08/19 022 Inactive carbamazepine 200 mg tablet RxNorm: 617462 Take 1 Tablet(s) Oral BID 07/08/19 022 Inactive torsemide 20 mg tablet RxNorm: 820723 Take 1 Tablet(s) Oral QD 07/08/19 023 Inactive clopidogrel 75 mg tablet RxNorm: 464266 Take 1 Tablet(s) Oral QD 07/08/19 021 Inactive Blood Glucose Test strips RxNorm: Use 1 Test Strip QID at PRN 07/08/19 Inactive E11.42 Novolog Flexpen U-100 Insulin aspart 100 unit/mL (3 mL) subcutaneous RxNorm: 2423570 Administer per sliding scale Milliliter(s) Subcutaneous TID 151-200: 10 u; 201-250: 20 u; 251-300: 30 u; 301-350: 40 u; 351-400: 50 u. 07/08/19 022 Inactive lisinopril 5 mg tablet RxNorm: 174096 Take 1 Tablet(s) Oral QD 07/08/19 021 Inactive Novolog Flexpen U-100 Insulin aspart 100 unit/mL (3 mL) subcutaneous RxNorm: 7753953 Inject 85 Unit(s) Subcutaneous TID 07/08/19 022 Inactive metoprolol succinate ER 200 mg tablet,extended release 24 hr RxNorm: 307209 Take 1 Tablet(s) Oral QD 07/08/19 Inactive Vitamin D3 25 mcg (1,000 unit) tablet RxNorm: 078522 Take 1 Tablet(s) Oral QD 07/08/19 Inactive isosorbide dinitrate 30 mg tablet RxNorm: 513665 Take 1 Tablet(s) Oral QD 07/08/19 021 Inactive Levemir FlexTouch U-100 Insulin 100 unit/mL (3 mL) subcutaneous pen RxNorm: 301298 Inject 140 Unit(s) Subcutaneous BID 07/08/19 Inactive venlafaxine 75 mg tablet RxNorm: 167063 Take 1 Tablet(s) Oral QD 07/08/19 Inactive acetaminophen 500 mg tablet RxNorm: 421484 Take 1 Tablet(s) Oral TID as needed for headache 06/18/19 Inactive acetaminophen 500 mg tablet RxNorm: 436011 Take 1 Tablet(s) Oral TID as needed for headache 06/18/19 Inactive Lyrica 100 mg capsule RxNorm: 551255 Take 1 Capsule(s) Oral QHS every night at bedtime 06/11/19 021 Inactive Lyrica 50 mg capsule RxNorm: 117947 Take 1 Capsule(s) Oral QAM every morning 06/10/19 021 Inactive hydrocortisone 2.5 % topical cream RxNorm: 937724 Apply to bilateral groin creases Topical BID 05/15/20 20 021 Inactive clotrimazole 1 % topical cream RxNorm: 183629 Apply to bilateral groin areas Topical BID 05/15/20 20 021 Inactive Lyrica 50 mg capsule RxNorm: 066735 Take 1 Capsule(s) Oral QAM every morning 05/14/20 20 020 Inactive Lyrica 100 mg capsule RxNorm: 665877 Take 1 Capsule(s) Oral QHS every night [...] Inactive Nystop 100,000 unit/gram topical powder RxNorm: 716411 Apply to abd folds, under breasts and L side of groin Topical BID x 14 days, then BID PRN 04/08/20 20 021 Inactive dx: yeast dermatitis Lyrica 100 mg capsule RxNorm: 066788 Take 1 Capsule(s) Oral QHS every night at bedtime 03/13/20 20 Inactive Lyrica 50 mg capsule RxNorm: 151860 Take 1 Capsule(s) Oral QAM every morning 03/13/20 20 Inactive ketoconazole 2 % shampoo RxNorm: 310687 Apply Topical two times a week with showers 03/11/20 20 Inactive cholecalciferol (vitamin D3) 50 mcg (2,000 unit) tablet RxNorm: 543973 Take 1 Tablet(s) Oral QD 03/11/20 20 021 Inactive Zetia 10 mg tablet RxNorm: 209740 Take 1 Tablet(s) Oral QD 03/07/20 20 021 Inactive Zetia 10 mg tablet RxNorm: 261996 Take 1 Tablet(s) Oral QD 03/07/20 20 Inactive Lyrica 50 mg capsule RxNorm: 251942 Take 1 Capsule(s) Oral QAM every morning 02/15/20 20 Inactive Lyrica 100 mg capsule RxNorm: 368466 Take 1 Capsule(s) Oral QHS every night at bedtime 02/15/20 20 Inactive Lyrica 100 mg capsule RxNorm: 944295 Take 1 Capsule(s) Oral QHS every night at bedtime 02/15/20 20 Inactive Lyrica 50 mg capsule RxNorm: 947639 Take 1 Capsule(s) Oral QAM every morning 02/15/20 20 Inactive venlafaxine ER 75 mg capsule,extended release 24 hr RxNorm: 470076 Take 3 Capsule(s) Oral QD 06/12/19 22 Active polyethylene glycol 3350 17 gram/dose oral powder RxNorm: 999689 Take 17=1 capful Gram(s) Oral BID as needed mix with 4-8oz of liquid 06/12/19 22 Active Levemir FlexTouch U-100 Insulin 100 unit/mL (3 mL) subcutaneous pen RxNorm: 930332 Inject 80 Unit(s) Subcutaneous BID 07/14/19 23 023 Inactive loperamide 2 mg capsule RxNorm: 919197 Take 1 Capsule(s) Oral QID as needed 06/12/19 22 Active Novolog Flexpen U-100 Insulin aspart 100 unit/mL (3 mL) subcutaneous RxNorm: 3298259 Insert 30 Unit(s) Subcutaneous TID with meals [...] of [facility]: [id number] [id number] [place] Referral Records Received 09/21/2022 Referral: [facility]: [address] [id number] [place] Referral Completed 05/28/2021 Referral: General Cardiology Referral Complet ed 01/03/2021 Referral: General Psychologist Referral Close d Instructions Comment Date Leonid is a Male being seen living at [facility]. Initial BPS visit 01/2020. PMHx including DMII, CAD w/ 5 stents, Depression, Seizure Disorder and CKD stage 3. He moved into [facility] in 12/2019 but after a hospitalization 05/2021 he moved to the [facility] to have closer nursing attention. Sister Jyotsna involved in his care cell# [phone] Guardian: Don (tapan met in person 09/01/21), now has Lexii (same group as don)Lab Schedule: * 10/06/2022
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
--- OUTSIDE RECORDS SUMMARY | 2022-11-10 00:25 | XMS_ITS | CCD ---
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 Form Raiser Name Role Phone Tapan Shirley PA-C Primary Care Provider Unavailabl e Tapan Shirley PA-C Chronic Care Management Unavaila ble Summary Purpose DataExchange Insurance Providers Payer name Policy type / Coverage type Covered constitution party ID Effective Begin Date Effective End Date Medicare [place] Medicare Part B [id number] Unknown Unknown Medicaid [place] Medicare Part B [id number] Unknown Unknown Family history Sister Brittany Suggs Diagnosis Age At Onset No Family Disease Entered N/A Runs in the family Diagnosis Age At Onset No Known Diseases N/A Sister Blanka Mcduffie Diagnosis Age At Onset No Family Disease Entered N/A Social History Social History Element Codes Description Effec tive Dates Marital status Unknown Single 10/07/2021 Living arrangements Unknown Detention 09/03/[address]: 7613032 Non-Smoker / No History of Smoking 09/02/[address]: 753723329 No Alcohol Consum ption 09/02/2020 Allergies, Adverse Reactions, Alerts Substance Reaction Codes Entered Date Inactivated Date Status LISINOPRIL RxNorm: 11598 02/12/2020 No Inactive Da te Active Metformin [...] ICD-10: S98. 131A ICD-9: 895.0 09/01/2021 Active alf (current) use of insulin ICD-10: Z79.4 09/01 Active Onychogryposis ICD-10: L60.2 ICD-9: 703.8 09/01/2021 Active Seizure disorder ICD-10: G40.909 ICD-9: 345.90 09/01/2021 Active Muscular pain ICD-10: M79.10 ICD-9: 729.1 08/04/2021 Active Pain of right heel ICD-10: M79.671 ICD-9: 729.5 08/04/2021 Active Coronary artery disease invo [place]ving [place] coronary artery of [place] heart, angina presence unspecified ICD-10: I25.10 ICD-9: [...] Fill Instructions pregabalin 50 mg capsule RxNorm: 562332 Take 1 Capsule(s) Oral QAM every morning 10/16/19 22 022 Inactive pregabalin 50 mg capsule RxNorm: 245951 Take 1 Capsule(s) Oral QAM every morning 10/16/19 22 022 Inactive pregabalin 50 mg capsule RxNorm: 766938 1 Capsule(s) Oral QAM every morning 10/15/19 22 022 Inactive Shingrix (PF) 50 mcg/0.5 mL intramuscular suspension, kit RxNorm: 9987832 Administer 1/2 Milliliter(s) Intramuscular one time Nursing please administer upon arrival and once administered post a bridge message with date of administration, independent beauty consultant, 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 10/09/19 22 022 Inactive shingrix step 1 Shingrix (PF) 50 mcg/0.5 mL intramuscular suspension, kit RxNorm: 8345028 Administer 1/2 Milliliter(s) Intramuscular one time Nursing please administer upon arrival and once administered post a bridge message with date of administration, independent beauty consultant, 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 10/09/19 22 022 Inactive shingrix step 1 Novolog Flexpen U-100 Insulin aspart 100 unit/mL (3 mL) subcutaneous RxNorm: 6608455 Inject 10 Unit(s) Subcutaneous QHS every night at bedtime with nighttime snack 10/08/19 22 022 Inactive Novolog Flexpen U-100 Insulin aspart 100 unit/mL (3 mL) subcutaneous RxNorm: 2994310 Inject 36 Unit(s) Subcutaneous TID in addition to sliding scale 10/08/19 22 Inactive cholecalciferol (vitamin D3) 1,250 mcg (50,000 unit) capsule RxNorm: 635631 Take 1 Capsule(s) Oral QW once a [...] 50 mcg/0.5 mL intramuscular suspension, kit RxNorm: 0787274 ADMINISTER 2-DOSE SERIES PER CDC GUIDELINES 10/08/19 22 Active Shingrix (PF) 50 mcg/0.5 mL intramuscular suspension, kit RxNorm: 7663032 ADMINISTER 2-DOSE SERIES PER CDC GUIDELINES 10/08/19 Inactive Novofine Autocover 30 gauge x 1/3 needle RxNorm: Use 1 Miscellaneous UD as directed Use 1 needle as directed to administer insulin 5 times a day Dx:E11.42. 10/03/19 22 Inactive ok to substitute with any covered alternative pen needle benzoyl peroxide 10 % topical cleanser RxNorm: 604175 Apply 1 Application Topical QD apply to face, wash rinse and dry once daily (may change to QOD if drying) 08/19/19 022 Inactive (%covered by insurance) #60ml refill 11 dx: acne Lyrica 100 mg capsule RxNorm: 706797 Take 1 Capsule(s) Oral QHS every night at bedtime Take 1 capsule by mouth once daily at bedtime 08/19/19 022 Inactive benzoyl peroxide 10 % topical cleanser RxNorm: 071422 Apply 1 Application Topical QD apply to face, wash rinse and dry once daily (may change to QOD if drying) 08/19/19 22 022 Inactive (%covered by insurance) #60ml refill 11 dx: acne benzoyl peroxide 10 % topical cleanser RxNorm: 472425 Apply 1 Application Topical QD apply to face, wash rinse and dry once daily (may change to QOD if drying) 08/19/19 22 022 Inactive (%covered by insurance) #60ml refill 11 dx: acne Lyrica 50 mg capsule RxNorm: 736113 Take 1 Capsule(s) Oral QAM every morning Take 1 capsule by mouth once daily 08/19/19 22 022 Inactive benzoyl peroxide 10 % topical cleanser RxNorm: 934495 Apply 1 Application Topical QD apply to face, wash rinse and dry once daily (may change to QOD if drying) 08/19/19 22 Inactive (%covered by insurance) #60ml refill 11 dx: acne Lyrica 100 mg capsule RxNorm: 170114 Take 1 Capsule(s) Oral QHS every night at bedtime Take 1 capsule by mouth once daily at bedtime 08/16/19 22 022 Inactive Lyrica 50 mg capsule RxNorm: 437850 Take 1 Capsule(s) Oral QAM every morning Take 1 capsule by mouth once daily 08/16/19 22 022 Inactive Levemir FlexTouch U-100 Insulin 100 unit/mL (3 mL) subcutaneous pen RxNorm: 225413 Inject 86 Unit(s) Subcutaneous BID 08/05/19 22 022 Inactive d/c 83units BID Lyrica 100 mg capsule RxNorm: 406281 Take 1 Capsule(s) Oral QHS every night at bedtime Take 1 capsule by mouth once daily at bedtime 07/14/19 22 022 Inactive Lyrica 50 mg capsule RxNorm: 075862 Take 1 Capsule(s) Oral QAM every morning Take 1 capsule by mouth once daily 07/14/19 22 022 Inactive Levemir FlexTouch U-100 Insulin 100 unit/mL (3 mL) subcutaneous pen RxNorm: 134652 Inject 83 Unit(s) Subcutaneous BID 07/08/19 22 [...] test strip hydralazine 50 mg tablet RxNorm: 587902 Take 1 Tablet(s) Oral QID 05/05/20 21 Inactive isosorbide mononitrate ER 30 mg tablet,extended release 24 hr RxNorm: 353046 Take 1 Tablet(s) Oral QD 05/05/20 No Stop Date Active venlafaxine ER 225 mg tablet,extended release 24 hr RxNorm: 469230 Take 1 Tablet(s) Oral QD 05/05/20 21 Inactive venlafaxine ER 225 mg tablet,extended release 24 hr RxNorm: 064372 Take 1 Tablet(s) Oral QD 05/05/20 022 Inactive hydralazine 50 mg tablet RxNorm: 586608 Take 1 Tablet(s) Oral QID 05/05/20 21 Inactive aspirin 81 mg tablet,delayed release RxNorm: 724062 Take 1 Tablet(s) Oral QD 03/31/20 Inactive Zetia 10 mg tablet RxNorm: 496405 Take 1 Tablet(s) Oral QD 03/31/20 Inactive Vitamin D2 1,250 mcg (50,000 unit) capsule RxNorm: 6082374 Take 1 Capsule(s) Oral QW once a week x 12 weeks 03/31/20 022 Inactive Vitamin D2 1,250 mcg (50,000 unit) capsule RxNorm: 4641548 Take 1 Capsule(s) Oral QW once a week 03/31/20 Inactive Zetia 10 mg tablet RxNorm: 695538 Take 1 Tablet(s) Oral QD 03/31/20 021 Inactive hydralazine 25 mg tablet RxNorm: 436880 Take 1 Tablet(s) Oral QID 03/31/20 021 Inactive hydralazine 25 mg tablet RxNorm: 150183 Take 1 Tablet(s) Oral QID 03/31/20 021 Inactive hydralazine 10 mg tablet RxNorm: 541786 Take 1 Tablet(s) Oral QID 03/03/20 021 Inactive cephalexin 500 mg tablet RxNorm: 579152 Take 1 Tablet(s) Oral QID 02/27/20 021 Inactive cephalexin 500 mg tablet RxNorm: 470376 Take 1 Tablet(s) Oral QID 02/27/20 021 Inactive lisinopril 40 mg tablet RxNorm: 929953 Take 1 Tablet(s) Oral QD 02/11/20 023 Inactive Eliquis 5 mg tablet RxNorm: 0830160 Take 1 Tablet(s) Oral BID 01/05/20 022 Inactive Eliquis 5 mg tablet RxNorm: 3013844 Take 2 Tablet(s) Oral QD 01/01/20 021 Inactive Lyrica 50 mg capsule RxNorm: 909388 Take 1 Capsule(s) Oral QAM every morning 12/24/19 021 Inactive Lyrica 100 mg capsule RxNorm: 280050 Take 1 Capsule(s) Oral QHS every night at bedtime 12/24/19 021 Inactive clotrimazole 1 % topical cream RxNorm: 187451 Apply to right foot and toes Topical BID 12/04/19 21 023 Inactive metoprolol succinate ER 200 mg tablet,extended release 24 hr RxNorm: 121486 Take 1 Tablet(s) Oral QD 12/04/19 21 023 Inactive ciprofloxacin 500 mg tablet RxNorm: 933884 Take 1 Tablet(s) Oral QD 11/30/19 21 021 Inactive DX ofloxacin otic drops Accu-Chek Guide test strips RxNorm: USE 1 TO CHECK GLUCOSE 4 TIMES DAILY AND NEEDED 11/15/19 21 023 Inactive Blood Glucose Test strips RxNorm: Use 1 Test Strip QID at PRN 11/05/19 21 023 Inactive E11.42 lisinopril 30 mg tablet RxNorm: 057752 Take 1 Tablet(s) Oral QD 10/30/19 021 Inactive lisinopril 20 mg tablet RxNorm: 760826 Take 1 Tablet(s) Oral QD 10/23/19 021 Inactive lisinopril 20 mg tablet RxNorm: 808118 Take 1 Tablet(s) Oral QD 10/23/19 021 Inactive lisinopril 10 mg tablet RxNorm: 165671 Take 1 Tablet(s) Oral QD 10/02/19 021 Inactive icosapent ethyl 1 gram capsule RxNorm: 9498749 Take 2 Capsule(s) (2 gm) Oral BID with meals 09/12/19 022 Inactive Okay to dispense one 2gm tab if you have that available. icosapent ethyl 1 gram capsule RxNorm: 0420837 Take 2 Capsule(s) Oral BID 09/12/19 021 Inactive Okay to dispense one 2gm tab if you have that available. amlodipine 10 mg tablet RxNorm: 959723 Take 1 Tablet(s) Oral QD 09/04/19 022 Inactive aspirin 81 mg tablet,delayed release RxNorm: 190042 Take 1 Tablet(s) Oral QD 09/04/19 021 Inactive Levemir FlexTouch U-100 Insulin 100 unit/mL (3 mL) subcutaneous pen RxNorm: 440156 Inject 150 Unit(s) Subcutaneous BID 09/04/19 21 022 Inactive venlafaxine ER 150 mg tablet,extended release 24 hr RxNorm: 140584 Take 1 Tablet(s) Oral QD 09/04/19 21 021 Inactive clotrimazole-betame thasone 1 %-0.05 % topical cream RxNorm: 054923 Apply to rash on red area on left abdomen/chest Topical BID 08/10/19 21 021 Inactive amlodipine 5 mg tablet RxNorm: 204464 Take 1 Tablet(s) Oral QD 07/31/19 21 Inactive cephalexin 500 mg tablet RxNorm: 851141 Take 1 Tablet(s) Oral BID BID - Twice Daily 07/31/19 21 021 Inactive Start 08/01/20 pantoprazole 40 mg tablet,delayed release RxNorm: 234260 Take 1 Tablet(s) Oral QAM every morning 07/08/19 022 Inactive senna 8.6 mg tablet RxNorm: 683499 Take 1 Tablet(s) Oral QD 07/08/19 022 Inactive pravastatin 80 mg tablet RxNorm: 191863 Take 1 Tablet(s) Oral QHS every night at bedtime 07/08/19 022 Inactive clotrimazole 1 % topical cream RxNorm: 932264 Apply to bilateral groin areas Topical BID 07/08/19 21 022 Inactive carbamazepine 200 mg tablet RxNorm: 697678 Take 1 Tablet(s) Oral BID 07/08/19 21 022 Inactive torsemide 20 mg tablet RxNorm: 792716 Take 1 Tablet(s) Oral QD 07/08/19 21 023 Inactive clopidogrel 75 mg tablet RxNorm: 040469 Take 1 Tablet(s) Oral QD 07/08/19 021 Inactive Blood Glucose Test strips RxNorm: Use 1 Test Strip QID at PRN 07/08/19 21 021 Inactive E11.42 Novolog Flexpen U-100 Insulin aspart 100 unit/mL (3 mL) subcutaneous RxNorm: 8040922 Administer per sliding scale Milliliter(s) Subcutaneous TID 151-200: 10 u; 201-250: 20 u; 251-300: 30 u; 301-350: 40 u; 351-400: 50 u. 07/08/19 022 Inactive lisinopril 5 mg tablet RxNorm: 968801 Take 1 Tablet(s) Oral QD 07/08/19 021 Inactive Novolog Flexpen U-100 Insulin aspart 100 unit/mL (3 mL) subcutaneous RxNorm: 1137015 Inject 85 Unit(s) Subcutaneous TID 07/08/19 022 Inactive metoprolol succinate ER 200 mg tablet,extended release 24 hr RxNorm: 743327 Take 1 Tablet(s) Oral QD 07/08/19 021 Inactive Vitamin D3 25 mcg (1,000 unit) tablet RxNorm: 694262 Take 1 Tablet(s) Oral QD 07/08/19 Inactive isosorbide dinitrate 30 mg tablet RxNorm: 060703 Take 1 Tablet(s) Oral QD 07/08/19 021 Inactive Levemir FlexTouch U-100 Insulin 100 unit/mL (3 mL) subcutaneous pen RxNorm: 092655 Inject 140 Unit(s) Subcutaneous BID 07/08/19 021 Inactive venlafaxine 75 mg tablet RxNorm: 161219 Take 1 Tablet(s) Oral QD 07/08/19 021 Inactive acetaminophen 500 mg tablet RxNorm: 950453 Take 1 Tablet(s) Oral TID as needed for headache 06/18/19 021 Inactive acetaminophen 500 mg tablet RxNorm: 297159 Take 1 Tablet(s) Oral TID as needed for headache 06/18/19 021 Inactive Lyrica 100 mg capsule RxNorm: 634818 Take 1 Capsule(s) Oral QHS every night at bedtime 06/11/19 021 Inactive Lyrica 50 mg capsule RxNorm: 748800 Take 1 Capsule(s) Oral QAM every morning 06/10/19 021 Inactive hydrocortisone 2.5 % topical cream RxNorm: 487599 Apply to bilateral groin creases Topical BID 05/15/20 20 021 Inactive clotrimazole 1 % topical cream RxNorm: 294392 Apply to bilateral groin areas Topical BID 05/15/20 Inactive Lyrica 50 mg capsule RxNorm: 002426 Take 1 Capsule(s) Oral QAM every morning 05/14/20 20 Inactive Lyrica 100 mg capsule RxNorm: 270063 Take 1 Capsule(s) Oral QHS every night [...] Inactive Nystop 100,000 unit/gram topical powder RxNorm: 115065 Apply to abd folds, under breasts and L side of groin Topical BID x 14 days, then BID PRN 04/08/20 20 021 Inactive dx: yeast dermatitis Lyrica 100 mg capsule RxNorm: 419786 Take 1 Capsule(s) Oral QHS every night at bedtime 03/13/20 20 Inactive Lyrica 50 mg capsule RxNorm: 372826 Take 1 Capsule(s) Oral QAM every morning 03/13/20 20 Inactive ketoconazole 2 % shampoo RxNorm: 114945 Apply Topical two times a week with showers 03/11/20 20 Inactive cholecalciferol (vitamin D3) 50 mcg (2,000 unit) tablet RxNorm: 370218 Take 1 Tablet(s) Oral QD 03/11/20 20 021 Inactive Zetia 10 mg tablet RxNorm: 147274 Take 1 Tablet(s) Oral QD 03/07/20 021 Inactive Zetia 10 mg tablet RxNorm: 530668 Take 1 Tablet(s) Oral QD 03/07/20 Inactive Lyrica 50 mg capsule RxNorm: 941848 Take 1 Capsule(s) Oral QAM every morning 02/15/20 20 Inactive Lyrica 100 mg capsule RxNorm: 956942 Take 1 Capsule(s) Oral QHS every night at bedtime 02/15/20 Inactive Lyrica 100 mg capsule RxNorm: 497088 Take 1 Capsule(s) Oral QHS every night at bedtime 02/15/20 Inactive Lyrica 50 mg capsule RxNorm: 877607 Take 1 Capsule(s) Oral QAM every morning 02/15/20 Inactive venlafaxine ER 75 mg capsule,extended release 24 hr RxNorm: 410034 Take 3 Capsule(s) Oral QD 06/12/19 22 Active polyethylene glycol 3350 17 gram/dose oral powder RxNorm: 557060 Take 17=1 capful Gram(s) Oral BID as needed mix with 4-8oz of liquid 06/12/19 22 Active Levemir FlexTouch U-100 Insulin 100 unit/mL (3 mL) subcutaneous pen RxNorm: 748775 Inject 80 Unit(s) Subcutaneous BID 07/14/19 23 023 Inactive loperamide 2 mg capsule RxNorm: 583858 Take 1 Capsule(s) Oral QID as needed 06/12/19 22 Active Novolog Flexpen U-100 Insulin aspart 100 unit/mL (3 mL) subcutaneous RxNorm: 2640049 Insert 30 Unit(s) Subcutaneous TID with meals [...] [facility] WPtel: [phone] [id number] [place] Referral Records Received 09/21/2022 Referral: [facility]Ptel: [id number] [id number] [place] Referral Completed 05/28/2021 Referral: General Cardiology Referral Complet ed 01/03/2021 Referral: General Psychologist Referral Close d Instructions Comment Date Leonid is a Male being seen living at [facility]. Initial BPS visit 01/2020. PMHx including DMII, CAD w/ 5 stents, Depression, Seizure Disorder and CKD stage 3. He moved into [facility] in 12/2019 but after a hospitalization 05/2021 he moved to the [facility] to have closer nursing attention. Sister Jyotsna involved in his care cell# [phone] Guardian: Don (tapan met in person 09/01/21), now has Lexii (same group as don)Lab Schedule: * 10/06/2022
--- OUTSIDE RECORDS SUMMARY | 2022-11-10 00:26 | XMS_ITS | CCD ---
Author Name Tapan Shirley PA-C Address [address] [place] [address] Phone Organization [facility] Phone Care Team Providers Care Switchboard Mechanic Name Role Phone Tapan Shirley PA-C Primary Care Provider Unavailabl e Tapan Shirley PA-C Chronic Care Management Unavaila ble Summary Purpose DataExchange Insurance Providers Payer name Policy type / Coverage type Covered republican ID Effective Begin Date Effective End Date Medicare [place] Medicare Part B [id number] Unknown Unknown [place] Medicare Part B [id number] Unknown Unknown Family history Sister Brittany Suggs [...] Mcc 09/03/[address]: 5310133 Non-Smoker / No History of Smoking 09/02/[address]: 337757163 No Alcohol Consum ption 09/02/2020 Allergies, Adverse Reactions, Alerts Substance Reaction Codes Entered Date Inactivated Date Status LISINOPRIL RxNorm: 65209 02/12/2020 No Inactive Da te Active Metformin [...] 08/04/2021 Active Coronary artery disease invo lving [place] coronary artery of [place] heart, angina presence unspecified ICD-10: I25.10 ICD-9: [...] aspart 100 unit/mL (3 mL) subcutaneous RxNorm: 0370501 Inject 42 Unit(s) Subcutaneous TID in addition to sliding scale 12/10/19 22 022 Inactive d/c 36u chlorthalidone 25 mg tablet RxNorm: 771701 Take 1 Tablet(s) Oral QAM every morning 12/10/19 22 023 Active pregabalin 50 mg capsule RxNorm: 722916 Take 1 Capsule(s) Oral QAM every morning 11/12/19 22 022 Inactive tetanus-diphtheria toxoids-Td 2 Lf unit-2 Lf unit/0.5 mL IM suspension RxNorm: 139 Take 0.5 Miscellaneous Intramuscular 11/12/19 022 Inactive need tdap - nursing to administer upon arrival pregabalin 50 mg capsule RxNorm: 718298 Take 1 Capsule(s) Oral QAM every morning 10/16/19 022 Inactive pregabalin 50 mg capsule RxNorm: 665853 Take 1 Capsule(s) Oral QAM every morning 10/16/19 22 022 Inactive pregabalin 50 mg capsule RxNorm: 541990 1 Capsule(s) Oral QAM every morning 10/15/19 22 022 Inactive Shingrix (PF) 50 mcg/0.5 mL intramuscular suspension, kit RxNorm: 0914911 Administer 1/2 Milliliter(s) Intramuscular one time Nursing please administer upon arrival and once administered post a bridge message with date of administration, infectious waste 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 10/09/19 22 022 Inactive shingrix step 1 Shingrix (PF) 50 mcg/0.5 mL intramuscular suspension, kit RxNorm: 2219244 Administer 1/2 Milliliter(s) Intramuscular one time Nursing please administer upon arrival and once administered post a bridge message with date of administration, infectious waste 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 10/09/19 22 022 Inactive shingrix step 1 Novolog Flexpen U-100 Insulin aspart 100 unit/mL (3 mL) subcutaneous RxNorm: 1478748 Inject 10 Unit(s) Subcutaneous QHS every night at bedtime with nighttime snack 10/08/19 22 Inactive cholecalciferol (vitamin D3) 1,250 mcg (50,000 unit) capsule RxNorm: 070253 Take 1 Capsule(s) Oral QW once a [...] 50 mcg/0.5 mL intramuscular suspension, kit RxNorm: 0191268 ADMINISTER 2-DOSE SERIES PER CDC GUIDELINES 10/08/19 22 Active Shingrix (PF) 50 mcg/0.5 mL intramuscular suspension, kit RxNorm: 9385503 ADMINISTER 2-DOSE SERIES PER CDC GUIDELINES 10/08/19 22 Inactive Novolog Flexpen U-100 Insulin aspart 100 unit/mL (3 mL) subcutaneous RxNorm: 0644568 Inject 36 Unit(s) Subcutaneous TID in addition to sliding scale 10/08/19 22 Inactive Novofine Autocover 30 gauge x 1/3 needle RxNorm: Use 1 Miscellaneous UD as directed Use 1 needle as directed to administer insulin 5 times a day Dx:E11.42. 10/03/19 22 Inactive ok to substitute with any covered alternative pen needle benzoyl peroxide 10 % topical cleanser RxNorm: 501022 Apply 1 Application Topical QD apply to face, wash rinse and dry once daily (may change to QOD if drying) 08/19/19 22 Inactive (%covered by insurance) #60ml refill 11 dx: acne Lyrica 100 mg capsule RxNorm: 614098 Take 1 Capsule(s) Oral QHS every night at bedtime Take 1 capsule by mouth once daily at bedtime 08/19/19 22 022 Inactive benzoyl peroxide 10 % topical cleanser RxNorm: 284247 Apply 1 Application Topical QD apply to face, wash rinse and dry once daily (may change to QOD if drying) 08/19/19 22 022 Inactive (%covered by insurance) #60ml refill 11 dx: acne benzoyl peroxide 10 % topical cleanser RxNorm: 969807 Apply 1 Application Topical QD apply to face, wash rinse and dry once daily (may change to QOD if drying) 08/19/19 22 022 Inactive (%covered by insurance) #60ml refill 11 dx: acne Lyrica 50 mg capsule RxNorm: 577662 Take 1 Capsule(s) Oral QAM every morning Take 1 capsule by mouth once daily 08/19/19 Inactive benzoyl peroxide 10 % topical cleanser RxNorm: 601731 Apply 1 Application Topical QD apply to face, wash rinse and dry once daily (may change to QOD if drying) 08/19/19 22 022 Inactive (%covered by insurance) #60ml refill 11 dx: acne Lyrica 100 mg capsule RxNorm: 893117 Take 1 Capsule(s) Oral QHS every night at bedtime Take 1 capsule by mouth once daily at bedtime 08/16/19 022 Inactive Lyrica 50 mg capsule RxNorm: 009721 Take 1 Capsule(s) Oral QAM every morning Take 1 capsule by mouth once daily 08/16/19 Inactive Levemir FlexTouch U-100 Insulin 100 unit/mL (3 mL) subcutaneous pen RxNorm: 638720 Inject 86 Unit(s) Subcutaneous BID 08/05/19 22 022 Inactive d/c 83units BID Lyrica 100 mg capsule RxNorm: 693480 Take 1 Capsule(s) Oral QHS every night at bedtime Take 1 capsule by mouth once daily at bedtime 07/14/19 22 07/14/ 022 Inactive Lyrica 50 mg capsule RxNorm: 971813 Take 1 Capsule(s) Oral QAM every morning Take 1 capsule by mouth once daily 07/14/19 22 Inactive Levemir FlexTouch U-100 Insulin 100 unit/mL (3 mL) subcutaneous pen RxNorm: 456951 Inject 83 Unit(s) Subcutaneous BID 07/08/19 22 [...] test strip hydralazine 50 mg tablet RxNorm: 722937 Take 1 Tablet(s) Oral QID 05/05/20 21 022 Inactive isosorbide mononitrate ER 30 mg tablet,extended release 24 hr RxNorm: 878882 Take 1 Tablet(s) Oral QD 05/05/20 No Stop Date Active venlafaxine ER 225 mg tablet,extended release 24 hr RxNorm: 823974 Take 1 Tablet(s) Oral QD 05/05/20 Inactive venlafaxine ER 225 mg tablet,extended release 24 hr RxNorm: 750836 Take 1 Tablet(s) Oral QD 05/05/20 022 Inactive hydralazine 50 mg tablet RxNorm: 714861 Take 1 Tablet(s) Oral QID 05/05/20 Inactive aspirin 81 mg tablet,delayed release RxNorm: 372448 Take 1 Tablet(s) Oral QD 03/31/20 Inactive Zetia 10 mg tablet RxNorm: 654590 Take 1 Tablet(s) Oral QD 03/31/20 Inactive Vitamin D2 1,250 mcg (50,000 unit) capsule RxNorm: 0037606 Take 1 Capsule(s) Oral QW once a week x 12 weeks 03/31/20 Inactive Vitamin D2 1,250 mcg (50,000 unit) capsule RxNorm: 2045748 Take 1 Capsule(s) Oral QW once a week 03/31/20 Inactive Zetia 10 mg tablet RxNorm: 881700 Take 1 Tablet(s) Oral QD 03/31/20 Inactive hydralazine 25 mg tablet RxNorm: 210840 Take 1 Tablet(s) Oral QID 03/31/20 Inactive hydralazine 25 mg tablet RxNorm: 636870 Take 1 Tablet(s) Oral QID 03/31/20 Inactive hydralazine 10 mg tablet RxNorm: 542463 Take 1 Tablet(s) Oral QID 03/03/20 Inactive cephalexin 500 mg tablet RxNorm: 310350 Take 1 Tablet(s) Oral QID 02/27/20 Inactive cephalexin 500 mg tablet RxNorm: 993468 Take 1 Tablet(s) Oral QID 02/27/20 Inactive lisinopril 40 mg tablet RxNorm: 996406 Take 1 Tablet(s) Oral QD 02/11/20 023 Inactive Eliquis 5 mg tablet RxNorm: 5593798 Take 1 Tablet(s) Oral BID 01/05/20 21 022 Inactive Eliquis 5 mg tablet RxNorm: 0009327 Take 2 Tablet(s) Oral QD 01/01/20 21 021 Inactive Lyrica 50 mg capsule RxNorm: 055089 Take 1 Capsule(s) Oral QAM every morning 12/24/19 21 021 Inactive Lyrica 100 mg capsule RxNorm: 008209 Take 1 Capsule(s) Oral QHS every night at bedtime 12/24/19 021 Inactive clotrimazole 1 % topical cream RxNorm: 958138 Apply to right foot and toes Topical BID 12/04/19 21 023 Inactive metoprolol succinate ER 200 mg tablet,extended release 24 hr RxNorm: 347583 Take 1 Tablet(s) Oral QD 12/04/19 023 Inactive ciprofloxacin 500 mg tablet RxNorm: 168276 Take 1 Tablet(s) Oral QD 11/30/19 021 Inactive DX ofloxacin otic drops Accu-Chek Guide test strips RxNorm: USE 1 TO CHECK GLUCOSE 4 TIMES DAILY AND NEEDED 11/15/19 21 023 Inactive Blood Glucose Test strips RxNorm: Use 1 Test Strip QID at PRN 11/05/19 023 Inactive E11.42 lisinopril 30 mg tablet RxNorm: 123990 Take 1 Tablet(s) Oral QD 10/30/19 021 Inactive lisinopril 20 mg tablet RxNorm: 528535 Take 1 Tablet(s) Oral QD 10/23/19 021 Inactive lisinopril 20 mg tablet RxNorm: 080680 Take 1 Tablet(s) Oral QD 10/23/19 21 021 Inactive lisinopril 10 mg tablet RxNorm: 561623 Take 1 Tablet(s) Oral QD 10/02/19 21 021 Inactive icosapent ethyl 1 gram capsule RxNorm: 2046424 Take 2 Capsule(s) (2 gm) Oral BID with meals 09/12/19 Inactive Okay to dispense one 2gm tab if you have that available. icosapent ethyl 1 gram capsule RxNorm: 3224327 Take 2 Capsule(s) Oral BID 09/12/19 Inactive Okay to dispense one 2gm tab if you have that available. amlodipine 10 mg tablet RxNorm: 662452 Take 1 Tablet(s) Oral QD 09/04/19 Inactive aspirin 81 mg tablet,delayed release RxNorm: 501442 Take 1 Tablet(s) Oral QD 09/04/19 Inactive Levemir FlexTouch U-100 Insulin 100 unit/mL (3 mL) subcutaneous pen RxNorm: 774127 Inject 150 Unit(s) Subcutaneous BID 09/04/19 Inactive venlafaxine ER 150 mg tablet,extended release 24 hr RxNorm: 253567 Take 1 Tablet(s) Oral QD 09/04/19 Inactive clotrimazole-betame thasone 1 %-0.05 % topical cream RxNorm: 968766 Apply to rash on red area on left abdomen/chest Topical BID 08/10/19 Inactive amlodipine 5 mg tablet RxNorm: 826193 Take 1 Tablet(s) Oral QD 07/31/19 Inactive cephalexin 500 mg tablet RxNorm: 997821 Take 1 Tablet(s) Oral BID BID - Twice Daily 07/31/19 021 Inactive Start 08/01/20 pantoprazole 40 mg tablet,delayed release RxNorm: 644745 Take 1 Tablet(s) Oral QAM every morning 07/08/19 Inactive senna 8.6 mg tablet RxNorm: 820514 Take 1 Tablet(s) Oral QD 07/08/19 022 Inactive pravastatin 80 mg tablet RxNorm: 335784 Take 1 Tablet(s) Oral QHS every night at bedtime 07/08/19 022 Inactive clotrimazole 1 % topical cream RxNorm: 557224 Apply to bilateral groin areas Topical BID 07/08/19 21 022 Inactive carbamazepine 200 mg tablet RxNorm: 409760 Take 1 Tablet(s) Oral BID 07/08/19 21 022 Inactive torsemide 20 mg tablet RxNorm: 981737 Take 1 Tablet(s) Oral QD 07/08/19 21 023 Inactive clopidogrel 75 mg tablet RxNorm: 826065 Take 1 Tablet(s) Oral QD 07/08/19 021 Inactive Blood Glucose Test strips RxNorm: Use 1 Test Strip QID at PRN 07/08/19 21 Inactive E11.42 Novolog Flexpen U-100 Insulin aspart 100 unit/mL (3 mL) subcutaneous RxNorm: 8244030 Administer per sliding scale Milliliter(s) Subcutaneous TID 151-200: 10 u; 201-250: 20 u; 251-300: 30 u; 301-350: 40 u; 351-400: 50 u. 07/08/19 21 022 Inactive lisinopril 5 mg tablet RxNorm: 805483 Take 1 Tablet(s) Oral QD 07/08/19 021 Inactive Novolog Flexpen U-100 Insulin aspart 100 unit/mL (3 mL) subcutaneous RxNorm: 9313583 Inject 85 Unit(s) Subcutaneous TID 07/08/19 022 Inactive metoprolol succinate ER 200 mg tablet,extended release 24 hr RxNorm: 342057 Take 1 Tablet(s) Oral QD 07/08/19 21 021 Inactive Vitamin D3 25 mcg (1,000 unit) tablet RxNorm: 886215 Take 1 Tablet(s) Oral QD 07/08/19 021 Inactive isosorbide dinitrate 30 mg tablet RxNorm: 086520 Take 1 Tablet(s) Oral QD 07/08/19 21 021 Inactive Levemir FlexTouch U-100 Insulin 100 unit/mL (3 mL) subcutaneous pen RxNorm: 456681 Inject 140 Unit(s) Subcutaneous BID 07/08/19 021 Inactive venlafaxine 75 mg tablet RxNorm: 703392 Take 1 Tablet(s) Oral QD 07/08/19 21 021 Inactive acetaminophen 500 mg tablet RxNorm: 615369 Take 1 Tablet(s) Oral TID as needed for headache 06/18/19 21 021 Inactive acetaminophen 500 mg tablet RxNorm: 324533 Take 1 Tablet(s) Oral TID as needed for headache 06/18/19 21 021 Inactive Lyrica 100 mg capsule RxNorm: 941557 Take 1 Capsule(s) Oral QHS every night at bedtime 06/11/19 21 021 Inactive Lyrica 50 mg capsule RxNorm: 495643 Take 1 Capsule(s) Oral QAM every morning 06/10/19 21 021 Inactive hydrocortisone 2.5 % topical cream RxNorm: 530807 Apply to bilateral groin creases Topical BID 05/15/20 20 021 Inactive clotrimazole 1 % topical cream RxNorm: 589347 Apply to bilateral groin areas Topical BID 05/15/20 20 021 Inactive Lyrica 50 mg capsule RxNorm: 704938 Take 1 Capsule(s) Oral QAM every morning 05/14/20 20 020 Inactive Lyrica 100 mg capsule RxNorm: 474233 Take 1 Capsule(s) Oral QHS every night [...] Inactive Nystop 100,000 unit/gram topical powder RxNorm: 252774 Apply to abd folds, under breasts and L side of groin Topical BID x 14 days, then BID PRN 04/08/20 20 Inactive dx: yeast dermatitis Lyrica 100 mg capsule RxNorm: 325201 Take 1 Capsule(s) Oral QHS every night at bedtime 03/13/20 Inactive Lyrica 50 mg capsule RxNorm: 208887 Take 1 Capsule(s) Oral QAM every morning 03/13/20 Inactive ketoconazole 2 % shampoo RxNorm: 187966 Apply Topical two times a week with showers 03/11/20 Inactive cholecalciferol (vitamin D3) 50 mcg (2,000 unit) tablet RxNorm: 728599 Take 1 Tablet(s) Oral QD 03/11/20 Inactive Zetia 10 mg tablet RxNorm: 810781 Take 1 Tablet(s) Oral QD 03/07/20 20 Inactive Zetia 10 mg tablet RxNorm: 352951 Take 1 Tablet(s) Oral QD 03/07/20 20 Inactive Lyrica 50 mg capsule RxNorm: 501974 Take 1 Capsule(s) Oral QAM every morning 02/15/20 20 Inactive Lyrica 100 mg capsule RxNorm: 423375 Take 1 Capsule(s) Oral QHS every night at bedtime 02/15/20 Inactive Lyrica 100 mg capsule RxNorm: 242129 Take 1 Capsule(s) Oral QHS every night at bedtime 02/15/20 20 Inactive Lyrica 50 mg capsule RxNorm: 538230 Take 1 Capsule(s) Oral QAM every morning 02/15/20 20 Inactive venlafaxine ER 75 mg capsule,extended release 24 hr RxNorm: 476767 Take 3 Capsule(s) Oral QD 06/12/19 Active polyethylene glycol 3350 17 gram/dose oral powder RxNorm: 668708 Take 17=1 capful Gram(s) Oral BID as needed mix with 4-8oz of liquid 06/12/19 Active Levemir FlexTouch U-100 Insulin 100 unit/mL (3 mL) subcutaneous pen RxNorm: 674058 Inject 80 Unit(s) Subcutaneous BID 07/14/19 23 023 Inactive loperamide 2 mg capsule RxNorm: 041719 Take 1 Capsule(s) Oral QID as needed 06/12/19 Active Novolog Flexpen U-100 Insulin aspart 100 unit/mL (3 mL) subcutaneous RxNorm: 2962683 Insert 30 Unit(s) Subcutaneous TID with meals [...] Encounter Performer Location Location Address Codes Date (09951) DOMICIL VISIT EST PAT 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 [id number] [place] Referral Records Received 09/21/2022 Referral: [facility] WPt[facility]: [phone] [id number] [place] Referral Completed 05/28/2021 Referral: General Cardiology Referral Complet ed 01/03/2021 Referral: General Psychologist Referral Close d Instructions Comment Date Leonid is a Male being seen living at [facility]. Initial BPS visit 01/2020. PMHx including DMII, CAD w/ 5 stents, Depression, Seizure Disorder and CKD stage 3. He moved into [facility] in 12/2019 but after a hospitalization 05/2021 he moved to the [facility] to have closer nursing attention. Sister Jyotsna involved in his care cell# [phone] Guardian: Don (tapan met in person 09/01/21), now has Lex[facility] (same group as don)Lab Schedule: Mar-* 10/06/2022 Diabetes BGs reviewed and staff reports patient consistently gets his 36units with meals plus at least 10 extra units based on the sliding scale and frequently will get up to 50units plus the 36units. Increase novolog from 36u TID to 42u TID with meals in addition to sliding scale. Secondary hypertension Nephro referral in process but doesn't have transportation so bridge message sent to referrals dept to see if telehealth can be scheduled. In mean time add chlorthalidone 25mg tab - take 1 tab po QAM (last Na and GFR were nl) Chronic Kidney Disease Considered kidney function with the addition of chlorthalidone. Depression msg sent to psych via bridge for a consult on patient's worsening depression and isolation. . 12/09/2021
--- OUTSIDE RECORDS SUMMARY | 2022-11-10 00:26 | XMS_ITS | CCD ---
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 Name Role Phone Tapan Shirley PA-C Primary Care Provider Unavailabl e Tapan Shirley PA-C Chronic Care Management Unavaila ble Summary Purpose DataExchange Insurance Providers Payer name Policy type / Coverage type Covered republican ID Effective Begin Date Effective End Date [place] Part B [id number] Unknown Unknown [place] Medicare Part B [id number] Unknown Unknown Family history Sister Brittany Suggs [...] Usp 09/03/[address]: 9712694 Non-Smoker / No History of Smoking 09/02/[address]: 461427407 No Alcohol Consum ption 09/02/2020 Allergies, Adverse Reactions, Alerts Substance Reaction Codes Entered Date Inactivated Date Status LISINOPRIL RxNorm: 57652 02/12/2020 No Inactive Da te Active Metformin HCl Unknown 02/12/2020 No Inactive Cristiano e Active Problems Condition Codes Effective Dates Condition St atus Coronary artery disease invo lving tling[place] & [place] coronary artery of tling[place] heart, angina presence unspecified ICD-10: I25.10 ICD-9: 414.01 01/06/2022 Active Dandruff in adult ICD-10: L21.0 ICD-9: 690.18 01/06/2022 Active Hyperlipidemia associated wi th type 2 diabetes mellitus ICD-10: E11.69 ICD-9: 250.80 01/06/2022 Active Hypertensive heart disease w ithout heart failure ICD-10: I11.9 ICD-9: 402.90 01/06/2022 Active skilled nursing (current) use of insulin ICD-10: Z79.4 01/06 [...] Fill Instructions Lyrica 100 mg capsule RxNorm: 337404 Take 1 Capsule(s) Oral QAM every morning 01/08/20 22 022 Inactive d/c 50mg dose acetaminophen 500 mg tablet RxNorm: 888553 Take 1 Tablet(s) Oral TID 01/08/20 22 023 Active d/c PRN order Lyrica 150 mg capsule RxNorm: 065554 Take 1 Capsule(s) Oral QHS every night at bedtime 01/08/20 22 023 Inactive d/c 100mg dose polyethylene glycol 3350 17 gram/dose oral powder RxNorm: 690323 Take 17=1 capful Gram(s) Oral QD mix with 4-8oz of liquid 01/08/20 22 023 Active take this in addition to BID prn order Abilify 5 mg tablet RxNorm: 489285 Take 1 Tablet(s) Oral QD take 1 tab po QD #30 refill 5 dx: MDD 12/12/19 22 022 Inactive Abilify 5 mg tablet RxNorm: 875248 Take 1 Tablet(s) Oral QD take 1 tab po QD #30 refill 5 dx: MDD 12/12/19 22 022 Inactive chlorthalidone 25 mg tablet RxNorm: 410634 Take 1 Tablet(s) Oral QAM every morning 12/10/19 22 023 Active Novolog Flexpen U-100 Insulin aspart 100 unit/mL (3 mL) subcutaneous RxNorm: 0122812 Inject 42 Unit(s) Subcutaneous TID in addition to sliding scale 12/10/19 22 022 Inactive d/c 36u pregabalin 50 mg capsule RxNorm: 780693 Take 1 Capsule(s) Oral QAM every morning 11/12/19 22 022 Inactive tetanus-diphtheria toxoids-Td 2 Lf unit-2 Lf unit/0.5 mL IM suspension RxNorm: 139 Take 0.5 Miscellaneous Intramuscular 11/12/19 22 022 Inactive need tdap - nursing to administer upon arrival pregabalin 50 mg capsule RxNorm: 604818 Take 1 Capsule(s) Oral QAM every morning 10/16/19 22 022 Inactive pregabalin 50 mg capsule RxNorm: 989027 Take 1 Capsule(s) Oral QAM every morning 10/16/19 22 022 Inactive pregabalin 50 mg capsule RxNorm: 843740 1 Capsule(s) Oral QAM every morning 10/15/19 22 022 Inactive Shingrix (PF) 50 mcg/0.5 mL intramuscular suspension, kit RxNorm: 7257376 Administer 1/2 Milliliter(s) Intramuscular one time Nursing please administer upon arrival and once administered post a bridge message with date of administration, tumbler drier operator, 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 10/09/19 22 022 Inactive shingrix step 1 Shingrix (PF) 50 mcg/0.5 mL intramuscular suspension, kit RxNorm: 4134275 Administer 1/2 Milliliter(s) Intramuscular one time Nursing please administer upon arrival and once administered post a bridge message with date of administration, tumbler drier operator, 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 10/09/19 22 022 Inactive shingrix step 1 Novolog Flexpen U-100 Insulin aspart 100 unit/mL (3 mL) subcutaneous RxNorm: 3000162 Inject 10 Unit(s) Subcutaneous QHS every night at bedtime with nighttime snack 10/08/19 22 022 Inactive cholecalciferol (vitamin D3) 1,250 mcg (50,000 unit) capsule RxNorm: 248012 Take 1 Capsule(s) Oral QW once a [...] 50 mcg/0.5 mL intramuscular suspension, kit RxNorm: 4577327 ADMINISTER 2-DOSE SERIES PER CDC GUIDELINES 10/08/19 22 Active Shingrix (PF) 50 mcg/0.5 mL intramuscular suspension, kit RxNorm: 8097736 ADMINISTER 2-DOSE SERIES PER CDC GUIDELINES 10/08/19 22 Inactive Novolog Flexpen U-100 Insulin aspart 100 unit/mL (3 mL) subcutaneous RxNorm: 7403040 Inject 36 Unit(s) Subcutaneous TID in addition to sliding scale 10/08/19 22 Inactive Novofine Autocover 30 gauge x 1/3 needle RxNorm: Use 1 Miscellaneous UD as directed Use 1 needle as directed to administer insulin 5 times a day Dx:E11.42. 10/03/19 Inactive ok to substitute with any covered alternative pen needle benzoyl peroxide 10 % topical cleanser RxNorm: 227369 Apply 1 Application Topical QD apply to face, wash rinse and dry once daily (may change to QOD if drying) 08/19/19 22 022 Inactive (%covered by insurance) #60ml refill 11 dx: acne Lyrica 100 mg capsule RxNorm: 959111 Take 1 Capsule(s) Oral QHS every night at bedtime Take 1 capsule by mouth once daily at bedtime 08/19/19 22 022 Inactive benzoyl peroxide 10 % topical cleanser RxNorm: 672855 Apply 1 Application Topical QD apply to face, wash rinse and dry once daily (may change to QOD if drying) 08/19/19 22 022 Inactive (%covered by insurance) #60ml refill 11 dx: acne benzoyl peroxide 10 % topical cleanser RxNorm: 689640 Apply 1 Application Topical QD apply to face, wash rinse and dry once daily (may change to QOD if drying) 08/19/19 22 022 Inactive (%covered by insurance) #60ml refill 11 dx: acne Lyrica 50 mg capsule RxNorm: 629857 Take 1 Capsule(s) Oral QAM every morning Take 1 capsule by mouth once daily 08/19/19 22 022 Inactive benzoyl peroxide 10 % topical cleanser RxNorm: 372754 Apply 1 Application Topical QD apply to face, wash rinse and dry once daily (may change to QOD if drying) 08/19/19 22 Inactive (%covered by insurance) #60ml refill 11 dx: acne Lyrica 100 mg capsule RxNorm: 136889 Take 1 Capsule(s) Oral QHS every night at bedtime Take 1 capsule by mouth once daily at bedtime 08/16/19 22 022 Inactive Lyrica 50 mg capsule RxNorm: 324349 Take 1 Capsule(s) Oral QAM every morning Take 1 capsule by mouth once daily 08/16/19 22 022 Inactive Levemir FlexTouch U-100 Insulin 100 unit/mL (3 mL) subcutaneous pen RxNorm: 055700 Inject 86 Unit(s) Subcutaneous BID 08/05/19 22 022 Inactive d/c 83units BID Lyrica 100 mg capsule RxNorm: 489355 Take 1 Capsule(s) Oral QHS every night at bedtime Take 1 capsule by mouth once daily at bedtime 07/14/19 22 022 Inactive Lyrica 50 mg capsule RxNorm: 867922 Take 1 Capsule(s) Oral QAM every morning Take 1 capsule by mouth once daily 07/14/19 22 022 Inactive Levemir FlexTouch U-100 Insulin 100 unit/mL (3 mL) subcutaneous pen RxNorm: 095103 Inject 83 Unit(s) Subcutaneous BID 07/08/19 22 [...] test strip hydralazine 50 mg tablet RxNorm: 444950 Take 1 Tablet(s) Oral QID 05/05/20 21 Inactive isosorbide mononitrate ER 30 mg tablet,extended release 24 hr RxNorm: 446926 Take 1 Tablet(s) Oral QD 05/05/20 No Stop Date Active venlafaxine ER 225 mg tablet,extended release 24 hr RxNorm: 087254 Take 1 Tablet(s) Oral QD 05/05/20 21 021 Inactive venlafaxine ER 225 mg tablet,extended release 24 hr RxNorm: 932973 Take 1 Tablet(s) Oral QD 05/05/20 21 022 Inactive hydralazine 50 mg tablet RxNorm: 668235 Take 1 Tablet(s) Oral QID 05/05/20 21 Inactive aspirin 81 mg tablet,delayed release RxNorm: 189258 Take 1 Tablet(s) Oral QD 03/31/20 21 Inactive Zetia 10 mg tablet RxNorm: 812477 Take 1 Tablet(s) Oral QD 03/31/20 21 11/09/2 022 Inactive Vitamin D2 1,250 mcg (50,000 unit) capsule RxNorm: 9295658 Take 1 Capsule(s) Oral QW once a week x 12 weeks 03/31/20 Inactive Vitamin D2 1,250 mcg (50,000 unit) capsule RxNorm: 0548154 Take 1 Capsule(s) Oral QW once a week 03/31/20 Inactive Zetia 10 mg tablet RxNorm: 696514 Take 1 Tablet(s) Oral QD 03/31/20 Inactive hydralazine 25 mg tablet RxNorm: 129465 Take 1 Tablet(s) Oral QID 03/31/20 Inactive hydralazine 25 mg tablet RxNorm: 093005 Take 1 Tablet(s) Oral QID 03/31/20 Inactive hydralazine 10 mg tablet RxNorm: 789451 Take 1 Tablet(s) Oral QID 03/03/20 021 Inactive cephalexin 500 mg tablet RxNorm: 855064 Take 1 Tablet(s) Oral QID 02/27/20 021 Inactive cephalexin 500 mg tablet RxNorm: 560448 Take 1 Tablet(s) Oral QID 02/27/20 021 Inactive lisinopril 40 mg tablet RxNorm: 141473 Take 1 Tablet(s) Oral QD 02/11/20 023 Inactive Eliquis 5 mg tablet RxNorm: 8569277 Take 1 Tablet(s) Oral BID 01/05/20 022 Inactive Eliquis 5 mg tablet RxNorm: 8190755 Take 2 Tablet(s) Oral QD 01/01/20 021 Inactive Lyrica 50 mg capsule RxNorm: 971384 Take 1 Capsule(s) Oral QAM every morning 12/24/19 021 Inactive Lyrica 100 mg capsule RxNorm: 626073 Take 1 Capsule(s) Oral QHS every night at bedtime 12/24/19 021 Inactive clotrimazole 1 % topical cream RxNorm: 604055 Apply to right foot and toes Topical BID 12/04/19 21 023 Inactive metoprolol succinate ER 200 mg tablet,extended release 24 hr RxNorm: 857258 Take 1 Tablet(s) Oral QD 12/04/19 21 023 Inactive ciprofloxacin 500 mg tablet RxNorm: 652264 Take 1 Tablet(s) Oral QD 11/30/19 21 021 Inactive DX ofloxacin otic drops Accu-Chek Guide test strips RxNorm: USE 1 TO CHECK GLUCOSE 4 TIMES DAILY AND NEEDED 11/15/19 21 023 Inactive Blood Glucose Test strips RxNorm: Use 1 Test Strip QID at PRN 11/05/19 21 023 Inactive E11.42 lisinopril 30 mg tablet RxNorm: 559164 Take 1 Tablet(s) Oral QD 10/30/19 021 Inactive lisinopril 20 mg tablet RxNorm: 938082 Take 1 Tablet(s) Oral QD 10/23/19 021 Inactive lisinopril 20 mg tablet RxNorm: 795766 Take 1 Tablet(s) Oral QD 10/23/19 21 021 Inactive lisinopril 10 mg tablet RxNorm: 510655 Take 1 Tablet(s) Oral QD 10/02/19 021 Inactive icosapent ethyl 1 gram capsule RxNorm: 4480899 Take 2 Capsule(s) (2 gm) Oral BID with meals 09/12/19 022 Inactive Okay to dispense one 2gm tab if you have that available. icosapent ethyl 1 gram capsule RxNorm: 4067843 Take 2 Capsule(s) Oral BID 09/12/19 21 021 Inactive Okay to dispense one 2gm tab if you have that available. amlodipine 10 mg tablet RxNorm: 407706 Take 1 Tablet(s) Oral QD 09/04/19 21 022 Inactive aspirin 81 mg tablet,delayed release RxNorm: 534778 Take 1 Tablet(s) Oral QD 09/04/19 21 021 Inactive Levemir FlexTouch U-100 Insulin 100 unit/mL (3 mL) subcutaneous pen RxNorm: 244695 Inject 150 Unit(s) Subcutaneous BID 09/04/19 21 022 Inactive venlafaxine ER 150 mg tablet,extended release 24 hr RxNorm: 585372 Take 1 Tablet(s) Oral QD 09/04/19 21 021 Inactive clotrimazole-betame thasone 1 %-0.05 % topical cream RxNorm: 189719 Apply to rash on red area on left abdomen/chest Topical BID 08/10/19 21 021 Inactive amlodipine 5 mg tablet RxNorm: 828186 Take 1 Tablet(s) Oral QD 07/31/19 21 Inactive cephalexin 500 mg tablet RxNorm: 279799 Take 1 Tablet(s) Oral BID BID - Twice Daily 07/31/19 21 021 Inactive Start 08/01/20 pantoprazole 40 mg tablet,delayed release RxNorm: 076665 Take 1 Tablet(s) Oral QAM every morning 07/08/19 21 022 Inactive senna 8.6 mg tablet RxNorm: 601511 Take 1 Tablet(s) Oral QD 07/08/19 21 022 Inactive pravastatin 80 mg tablet RxNorm: 777121 Take 1 Tablet(s) Oral QHS every night at bedtime 07/08/19 022 Inactive clotrimazole 1 % topical cream RxNorm: 275161 Apply to bilateral groin areas Topical BID 07/08/19 21 022 Inactive carbamazepine 200 mg tablet RxNorm: 338574 Take 1 Tablet(s) Oral BID 07/08/19 21 022 Inactive torsemide 20 mg tablet RxNorm: 507105 Take 1 Tablet(s) Oral QD 07/08/19 21 023 Inactive clopidogrel 75 mg tablet RxNorm: 566854 Take 1 Tablet(s) Oral QD 07/08/19 21 021 Inactive Blood Glucose Test strips RxNorm: Use 1 Test Strip QID at PRN 07/08/19 21 021 Inactive E11.42 Novolog Flexpen U-100 Insulin aspart 100 unit/mL (3 mL) subcutaneous RxNorm: 6401237 Administer per sliding scale Milliliter(s) Subcutaneous TID 151-200: 10 u; 201-250: 20 u; 251-300: 30 u; 301-350: 40 u; 351-400: 50 u. 07/08/19 022 Inactive lisinopril 5 mg tablet RxNorm: 088716 Take 1 Tablet(s) Oral QD 07/08/19 021 Inactive Novolog Flexpen U-100 Insulin aspart 100 unit/mL (3 mL) subcutaneous RxNorm: 0287456 Inject 85 Unit(s) Subcutaneous TID 07/08/19 Inactive metoprolol succinate ER 200 mg tablet,extended release 24 hr RxNorm: 013474 Take 1 Tablet(s) Oral QD 07/08/19 Inactive Vitamin D3 25 mcg (1,000 unit) tablet RxNorm: 082275 Take 1 Tablet(s) Oral QD 07/08/19 Inactive isosorbide dinitrate 30 mg tablet RxNorm: 095327 Take 1 Tablet(s) Oral QD 07/08/19 Inactive Levemir FlexTouch U-100 Insulin 100 unit/mL (3 mL) subcutaneous pen RxNorm: 642521 Inject 140 Unit(s) Subcutaneous BID 07/08/19 Inactive venlafaxine 75 mg tablet RxNorm: 440515 Take 1 Tablet(s) Oral QD 07/08/19 Inactive acetaminophen 500 mg tablet RxNorm: 238802 Take 1 Tablet(s) Oral TID as needed for headache 06/18/19 Inactive acetaminophen 500 mg tablet RxNorm: 741381 Take 1 Tablet(s) Oral TID as needed for headache 06/18/19 Inactive Lyrica 100 mg capsule RxNorm: 872706 Take 1 Capsule(s) Oral QHS every night at bedtime 06/11/19 Inactive Lyrica 50 mg capsule RxNorm: 930943 Take 1 Capsule(s) Oral QAM every morning 06/10/19 021 Inactive hydrocortisone 2.5 % topical cream RxNorm: 294867 Apply to bilateral groin creases Topical BID 05/15/20 20 021 Inactive clotrimazole 1 % topical cream RxNorm: 581225 Apply to bilateral groin areas Topical BID 05/15/20 20 021 Inactive Lyrica 50 mg capsule RxNorm: 554501 Take 1 Capsule(s) Oral QAM every morning 05/14/20 20 Inactive Lyrica 100 mg capsule RxNorm: 436464 Take 1 Capsule(s) Oral QHS every night [...] Inactive Nystop 100,000 unit/gram topical powder RxNorm: 661726 Apply to abd folds, under breasts and L side of groin Topical BID x 14 days, then BID PRN 04/08/20 20 021 Inactive dx: yeast dermatitis Lyrica 100 mg capsule RxNorm: 223439 Take 1 Capsule(s) Oral QHS every night at bedtime 03/13/20 20 020 Inactive Lyrica 50 mg capsule RxNorm: 155495 Take 1 Capsule(s) Oral QAM every morning 03/13/20 20 Inactive ketoconazole 2 % shampoo RxNorm: 333680 Apply Topical two times a week with showers 03/11/20 20 021 Inactive cholecalciferol (vitamin D3) 50 mcg (2,000 unit) tablet RxNorm: 376275 Take 1 Tablet(s) Oral QD 03/11/20 20 021 Inactive Zetia 10 mg tablet RxNorm: 237935 Take 1 Tablet(s) Oral QD 03/07/20 20 021 Inactive Zetia 10 mg tablet RxNorm: 628153 Take 1 Tablet(s) Oral QD 03/07/20 Inactive Lyrica 50 mg capsule RxNorm: 644010 Take 1 Capsule(s) Oral QAM every morning 02/15/20 Inactive Lyrica 100 mg capsule RxNorm: 252454 Take 1 Capsule(s) Oral QHS every night at bedtime 02/15/20 Inactive Lyrica 100 mg capsule RxNorm: 626232 Take 1 Capsule(s) Oral QHS every night at bedtime 02/15/20 Inactive Lyrica 50 mg capsule RxNorm: 713780 Take 1 Capsule(s) Oral QAM every morning 02/15/20 Inactive venlafaxine ER 75 mg capsule,extended release 24 hr RxNorm: 997022 Take 3 Capsule(s) Oral QD 06/12/19 Active polyethylene glycol 3350 17 gram/dose oral powder RxNorm: 221557 Take 17=1 capful Gram(s) Oral BID as needed mix with 4-8oz of liquid 06/12/19 Active Levemir FlexTouch U-100 Insulin 100 unit/mL (3 mL) subcutaneous pen RxNorm: 355963 Inject 80 Unit(s) Subcutaneous BID 07/14/19 23 023 Inactive loperamide 2 mg capsule RxNorm: 517795 Take 1 Capsule(s) Oral QID as needed 06/12/19 Active Novolog Flexpen U-100 Insulin aspart 100 unit/mL (3 mL) subcutaneous RxNorm: 4609230 Insert 30 Unit(s) Subcutaneous TID with meals [...] 01/06/2022 DEBRIDE NAIL 6 OR MORE CPT-4: 83247 Vital Signs Date Vital 01/06/2022 Blood Pressure 1: 147/72 Code: 8480-6 Heart Rate 1: 72 bpm Code: 8867-4 Respiratory Rate: 17 bpm Temperature: 36.4 (C) / 97.5 (F) Reason For Visit No Reason For Visit data Encounters Encounter Performer Location Location Address Codes Date (71280) DOMICIL VISIT EST PAT Diagnosis: Dandruff in [...] heart disease without heart failure[ICD10: I11.9] Diagnosis: superintendent terminal (current) use of insulin[ICD10: Z79.4] Diagnosis: Coronary artery disease involving tling[place] & [place] coronary artery of [place]ling[place] heart, angina presence unspecified[ICD10: I25.10] Tapan Shirley [place] [id number] [place] [id number] CPT-4: 32840 01/06/2022 Plan of Care Planned Activity Notes Codes Status Date Referral: [facility] [place]: [address] [id number] [place] Referral Records Received 09/21/2022 Referral: [facility] [place]: [address] [id number] [place] Referral Completed 05/28/2021 Referral: General Cardiology Referral Complet ed 01/03/2021 Referral: General Psychologist Referral Close d Instructions Comment Date Leonid is a Male being seen living at [facility]. Initial BPS visit 01/2020. PMHx including DMII, CAD w/ 5 stents, Depression, Seizure Disorder and CKD stage 3. He moved into [facility] in 12/2019 but after a hospitalization 05/2021 he moved to the [facility] to have closer nursing attention. Sister Jyotsna involved in his care cell# [phone] Guardian: Don (tapan met in person 09/01/21), [...] well. Ischemic Heart Disease schedule f/u with associate product manager Diabetes BG log reviewed, much improved since 12/09 when novolog increased from 36 to 42 TID with meals. Highest 388, lowest 109, most 180-250 with exception of yesterday 01/05 where BG were 321, 229, 366, and 388. Will make no changes since patient has a f/u with endo via telehealth on jan 13. Hypertension Patient to schedule f/u with associate product manager due CP when laying down. Consider GERD being cause as well. Encouraged avoidance of foods that make indigestion worse and not to lay down for at least 30 minutes after eating.Continue PPI. BPs reviewed and variable but mostly 150/70s. Likely needs a dose adjustment, would like associate product manager to weigh in. superintendent terminal (current) use of insulin Due to DM2 - see DM2 Dermatitis Ketoconazole working well, needs a refill, staff to call pharmacy. . 01/06/2022
--- OUTSIDE RECORDS SUMMARY | 2022-11-10 00:27 | XMS_ITS | CCD ---
Author Name Tpaan Shirley PA-C Address [address] [place] [address] Phone Organization [facility] Phone Care Team Providers Care Office Services Clerk Name Role Phone Tapan Shirley PA-C Primary Care Provider Unavailabl e Tapan Shirley PA-C Chronic Care Management Unavaila ble Summary Purpose DataExchange Insurance Providers Payer name Policy type / Coverage type Covered constitution party ID Effective Begin Date Effective End Date [place] Part [place] [id number] Unknown Unknown Medicaid [place] [id number] Unknown Unknown Family history Sister Brittany Suggs [...] Fdc 09/03/[address]: 8377588 Non-Smoker / No History of Smoking 09/02/[address]: 577976912 No Alcohol Consum ption 09/02/2020 Allergies, Adverse Reactions, Alerts Substance Reaction Codes Entered Date Inactivated Date Status LISINOPRIL RxNorm: 85392 02/12/2020 No Inactive Da te Active Metformin [...] immunization ICD-10: Z23 ICD-9: V03.89 02/10/[address] (current) use of insulin ICD-10: Z79.4 02/10 Resolved Muscular pain ICD-10: M79.10 ICD-9: 729.1 02/10/2022 Resolved Pain of right heel ICD-10: M79.671 ICD-9: 729.5 02/10/2022 Resolved Coronary artery disease invo lving [place] coronary artery of [place] heart, angina presence unspecified ICD-10: I25.10 [...] 50 mcg/0.5 mL intramuscular suspension, kit RxNorm: 5428432 Administer 1/2 Milliliter(s) Intramuscular QD one time shingrix step 2 ( step 1 given 11/04/21) WITH needle - Nursing please administer upon arrival and once administered post a bridge message with date of administration, ash handler, expiration date, and lot# so we can update [facility] 02/18/20 22 022 Inactive dispense with needle Shingrix (PF) 50 mcg/0.5 mL intramuscular suspension, kit RxNorm: 1068411 Administer 1/2 Milliliter(s) Intramuscular QD one time shingrix step 2 ( step 1 given 11/04/21) WITH needle - Nursing please administer upon arrival and once administered post a bridge message with date of administration, ash handler, expiration date, and lot# so we can update [facility] 02/18/20 22 022 Inactive dispense with needle acetaminophen 500 mg tablet RxNorm: 202351 Take 1 Tablet(s) Oral TID 01/08/20 22 023 Active d/c PRN order Lyrica 150 mg capsule RxNorm: 285095 Take 1 Capsule(s) Oral QHS every night at bedtime 01/08/20 22 023 Inactive d/c 100mg dose polyethylene glycol 3350 17 gram/dose oral powder RxNorm: 927216 Take 17=1 capful Gram(s) Oral QD mix with 4-8oz of liquid 01/08/20 22 023 Active take this in addition to BID prn order Lyrica 100 mg capsule RxNorm: 066171 Take 1 Capsule(s) Oral QAM every morning 01/08/20 22 022 Inactive d/c 50mg dose Abilify 5 mg tablet RxNorm: 362565 Take 1 Tablet(s) Oral QD take 1 tab po QD #30 refill 5 dx: MDD 12/12/19 22 022 Inactive Abilify 5 mg tablet RxNorm: 924579 Take 1 Tablet(s) Oral QD take 1 tab po QD #30 refill 5 dx: MDD 12/12/19 22 022 Inactive chlorthalidone 25 mg tablet RxNorm: 232110 Take 1 Tablet(s) Oral QAM every morning 12/10/19 22 023 Active Novolog Flexpen U-100 Insulin aspart 100 unit/mL (3 mL) subcutaneous RxNorm: 2653528 Inject 42 Unit(s) Subcutaneous TID in addition to sliding scale 12/10/19 22 022 Inactive d/c 36u pregabalin 50 mg capsule RxNorm: 355292 Take 1 Capsule(s) Oral QAM every morning 11/12/19 022 Inactive tetanus-diphtheria toxoids-Td 2 Lf unit-2 Lf unit/0.5 mL IM suspension RxNorm: 139 Take 0.5 Miscellaneous Intramuscular 11/12/19 22 022 Inactive need tdap - nursing to administer upon arrival pregabalin 50 mg capsule RxNorm: 071658 Take 1 Capsule(s) Oral QAM every morning 10/16/19 22 022 Inactive pregabalin 50 mg capsule RxNorm: 596187 Take 1 Capsule(s) Oral QAM every morning 10/16/19 22 022 Inactive pregabalin 50 mg capsule RxNorm: 799026 1 Capsule(s) Oral QAM every morning 10/15/19 22 022 Inactive Shingrix (PF) 50 mcg/0.5 mL intramuscular suspension, kit RxNorm: 6862181 Administer 1/2 Milliliter(s) Intramuscular one time Nursing please administer upon arrival and once administered post a bridge message with date of administration, ash handler, 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 10/09/19 22 022 Inactive shingrix step 1 Shingrix (PF) 50 mcg/0.5 mL intramuscular suspension, kit RxNorm: 3806719 Administer 1/2 Milliliter(s) Intramuscular one time Nursing please administer upon arrival and once administered post a bridge message with date of administration, ash handler, 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 10/09/19 22 022 Inactive shingrix step 1 Novolog Flexpen U-100 Insulin aspart 100 unit/mL (3 mL) subcutaneous RxNorm: 1157269 Inject 10 Unit(s) Subcutaneous QHS every night at bedtime with nighttime snack 10/08/19 22 022 Inactive cholecalciferol (vitamin D3) 1,250 mcg (50,000 unit) capsule RxNorm: 435384 Take 1 Capsule(s) Oral QW once a [...] 50 mcg/0.5 mL intramuscular suspension, kit RxNorm: 4301223 ADMINISTER 2-DOSE SERIES PER CDC GUIDELINES 10/08/19 22 022 Active Shingrix (PF) 50 mcg/0.5 mL intramuscular suspension, kit RxNorm: 9854924 ADMINISTER 2-DOSE SERIES PER CDC GUIDELINES 10/08/19 22 022 Inactive Novolog Flexpen U-100 Insulin aspart 100 unit/mL (3 mL) subcutaneous RxNorm: 7548283 Inject 36 Unit(s) Subcutaneous TID in addition to sliding scale 10/08/19 Inactive Novofine Autocover 30 gauge x 1/3 needle RxNorm: Use 1 Miscellaneous UD as directed Use 1 needle as directed to administer insulin 5 times a day Dx:E11.42. 10/03/19 22 Inactive ok to substitute with any covered alternative pen needle benzoyl peroxide 10 % topical cleanser RxNorm: 181634 Apply 1 Application Topical QD apply to face, wash rinse and dry once daily (may change to QOD if drying) 08/19/19 22 022 Inactive (%covered by insurance) #60ml refill 11 dx: acne Lyrica 100 mg capsule RxNorm: 646519 Take 1 Capsule(s) Oral QHS every night at bedtime Take 1 capsule by mouth once daily at bedtime 08/19/19 022 Inactive benzoyl peroxide 10 % topical cleanser RxNorm: 637227 Apply 1 Application Topical QD apply to face, wash rinse and dry once daily (may change to QOD if drying) 08/19/19 22 022 Inactive (%covered by insurance) #60ml refill 11 dx: acne benzoyl peroxide 10 % topical cleanser RxNorm: 479172 Apply 1 Application Topical QD apply to face, wash rinse and dry once daily (may change to QOD if drying) 08/19/19 22 022 Inactive (%covered by insurance) #60ml refill 11 dx: acne Lyrica 50 mg capsule RxNorm: 526705 Take 1 Capsule(s) Oral QAM every morning Take 1 capsule by mouth once daily 08/19/19 22 022 Inactive benzoyl peroxide 10 % topical cleanser RxNorm: 684305 Apply 1 Application Topical QD apply to face, wash rinse and dry once daily (may change to QOD if drying) 08/19/19 22 022 Inactive (%covered by insurance) #60ml refill 11 dx: acne Lyrica 100 mg capsule RxNorm: 388061 Take 1 Capsule(s) Oral QHS every night at bedtime Take 1 capsule by mouth once daily at bedtime 08/16/19 22 022 Inactive Lyrica 50 mg capsule RxNorm: 235219 Take 1 Capsule(s) Oral QAM every morning Take 1 capsule by mouth once daily 08/16/19 22 022 Inactive Levemir FlexTouch U-100 Insulin 100 unit/mL (3 mL) subcutaneous pen RxNorm: 466241 Inject 86 Unit(s) Subcutaneous BID 08/05/19 22 022 Inactive d/c 83units BID Lyrica 100 mg capsule RxNorm: 913927 Take 1 Capsule(s) Oral QHS every night at bedtime Take 1 capsule by mouth once daily at bedtime 07/14/19 22 022 Inactive Lyrica 50 mg capsule RxNorm: 980807 Take 1 Capsule(s) Oral QAM every morning Take 1 capsule by mouth once daily 07/14/19 22 022 Inactive Levemir FlexTouch U-100 Insulin 100 unit/mL (3 mL) subcutaneous pen RxNorm: 101213 Inject 83 Unit(s) Subcutaneous BID 07/08/19 22 [...] test strip hydralazine 50 mg tablet RxNorm: 759423 Take 1 Tablet(s) Oral QID 05/05/20 21 Inactive isosorbide mononitrate ER 30 mg tablet,extended release 24 hr RxNorm: 605371 Take 1 Tablet(s) Oral QD 05/05/20 No Stop Date Active venlafaxine ER 225 mg tablet,extended release 24 hr RxNorm: 041186 Take 1 Tablet(s) Oral QD 05/05/20 021 Inactive venlafaxine ER 225 mg tablet,extended release 24 hr RxNorm: 140803 Take 1 Tablet(s) Oral QD 05/05/20 022 Inactive hydralazine 50 mg tablet RxNorm: 385406 Take 1 Tablet(s) Oral QID 05/05/20 Inactive aspirin 81 mg tablet,delayed release RxNorm: 062807 Take 1 Tablet(s) Oral QD 03/31/20 Inactive Zetia 10 mg tablet RxNorm: 381435 Take 1 Tablet(s) Oral QD 03/31/20 Inactive Vitamin D2 1,250 mcg (50,000 unit) capsule RxNorm: 8248921 Take 1 Capsule(s) Oral QW once a week x 12 weeks 03/31/20 Inactive Vitamin D2 1,250 mcg (50,000 unit) capsule RxNorm: 4606948 Take 1 Capsule(s) Oral QW once a week 03/31/20 Inactive Zetia 10 mg tablet RxNorm: 662947 Take 1 Tablet(s) Oral QD 03/31/20 021 Inactive hydralazine 25 mg tablet RxNorm: 097544 Take 1 Tablet(s) Oral QID 03/31/20 021 Inactive hydralazine 25 mg tablet RxNorm: 105334 Take 1 Tablet(s) Oral QID 03/31/20 021 Inactive hydralazine 10 mg tablet RxNorm: 218002 Take 1 Tablet(s) Oral QID 03/03/20 021 Inactive cephalexin 500 mg tablet RxNorm: 535079 Take 1 Tablet(s) Oral QID 02/27/20 021 Inactive cephalexin 500 mg tablet RxNorm: 199200 Take 1 Tablet(s) Oral QID 02/27/20 021 Inactive lisinopril 40 mg tablet RxNorm: 587757 Take 1 Tablet(s) Oral QD 02/11/20 023 Inactive Eliquis 5 mg tablet RxNorm: 7034593 Take 1 Tablet(s) Oral BID 01/05/20 022 Inactive Eliquis 5 mg tablet RxNorm: 8494069 Take 2 Tablet(s) Oral QD 01/01/20 21 021 Inactive Lyrica 50 mg capsule RxNorm: 898802 Take 1 Capsule(s) Oral QAM every morning 12/24/19 021 Inactive Lyrica 100 mg capsule RxNorm: 874956 Take 1 Capsule(s) Oral QHS every night at bedtime 12/24/19 021 Inactive clotrimazole 1 % topical cream RxNorm: 842407 Apply to right foot and toes Topical BID 12/04/19 21 023 Inactive metoprolol succinate ER 200 mg tablet,extended release 24 hr RxNorm: 529158 Take 1 Tablet(s) Oral QD 12/04/19 21 023 Inactive ciprofloxacin 500 mg tablet RxNorm: 565737 Take 1 Tablet(s) Oral QD 11/30/19 21 021 Inactive DX ofloxacin otic drops Accu-Chek Guide test strips RxNorm: USE 1 TO CHECK GLUCOSE 4 TIMES DAILY AND NEEDED 11/15/19 21 023 Inactive Blood Glucose Test strips RxNorm: Use 1 Test Strip QID at PRN 11/05/19 21 023 Inactive E11.42 lisinopril 30 mg tablet RxNorm: 326384 Take 1 Tablet(s) Oral QD 10/30/19 021 Inactive lisinopril 20 mg tablet RxNorm: 426361 Take 1 Tablet(s) Oral QD 10/23/19 021 Inactive lisinopril 20 mg tablet RxNorm: 309124 Take 1 Tablet(s) Oral QD 10/23/19 21 021 Inactive lisinopril 10 mg tablet RxNorm: 160466 Take 1 Tablet(s) Oral QD 10/02/19 021 Inactive icosapent ethyl 1 gram capsule RxNorm: 1546039 Take 2 Capsule(s) (2 gm) Oral BID with meals 09/12/19 022 Inactive Okay to dispense one 2gm tab if you have that available. icosapent ethyl 1 gram capsule RxNorm: 8111160 Take 2 Capsule(s) Oral BID 09/12/19 021 Inactive Okay to dispense one 2gm tab if you have that available. amlodipine 10 mg tablet RxNorm: 920316 Take 1 Tablet(s) Oral QD 09/04/19 022 Inactive aspirin 81 mg tablet,delayed release RxNorm: 143414 Take 1 Tablet(s) Oral QD 09/04/19 021 Inactive Levemir FlexTouch U-100 Insulin 100 unit/mL (3 mL) subcutaneous pen RxNorm: 642560 Inject 150 Unit(s) Subcutaneous BID 09/04/19 21 022 Inactive venlafaxine ER 150 mg tablet,extended release 24 hr RxNorm: 221406 Take 1 Tablet(s) Oral QD 09/04/19 21 021 Inactive clotrimazole-betame thasone 1 %-0.05 % topical cream RxNorm: 332201 Apply to rash on red area on left abdomen/chest Topical BID 03/26 Inactive amlodipine 5 mg tablet RxNorm: 211946 Take 1 Tablet(s) Oral QD 07/31/19 Inactive cephalexin 500 mg tablet RxNorm: 567129 Take 1 Tablet(s) Oral BID BID - Twice Daily 07/31/19 021 Inactive Start 08/01/20 pantoprazole 40 mg tablet,delayed release RxNorm: 477241 Take 1 Tablet(s) Oral QAM every morning 07/08/19 022 Inactive senna 8.6 mg tablet RxNorm: 148516 Take 1 Tablet(s) Oral QD 07/08/19 022 Inactive pravastatin 80 mg tablet RxNorm: 775949 Take 1 Tablet(s) Oral QHS every night at bedtime 07/08/19 022 Inactive clotrimazole 1 % topical cream RxNorm: 212447 Apply to bilateral groin areas Topical BID 07/08/19 Inactive carbamazepine 200 mg tablet RxNorm: 979407 Take 1 Tablet(s) Oral BID 07/08/19 022 Inactive torsemide 20 mg tablet RxNorm: 208177 Take 1 Tablet(s) Oral QD 07/08/19 023 Inactive clopidogrel 75 mg tablet RxNorm: 670476 Take 1 Tablet(s) Oral QD 07/08/19 021 Inactive Blood Glucose Test strips RxNorm: Use 1 Test Strip QID at PRN 07/08/19 Inactive E11.42 Novolog Flexpen U-100 Insulin aspart 100 unit/mL (3 mL) subcutaneous RxNorm: 4732490 Administer per sliding scale Milliliter(s) Subcutaneous TID 151-200: 10 u; 201-250: 20 u; 251-300: 30 u; 301-350: 40 u; 351-400: 50 u. 07/08/19 022 Inactive lisinopril 5 mg tablet RxNorm: 651647 Take 1 Tablet(s) Oral QD 07/08/19 021 Inactive Novolog Flexpen U-100 Insulin aspart 100 unit/mL (3 mL) subcutaneous RxNorm: 0846092 Inject 85 Unit(s) Subcutaneous TID 07/08/19 21 022 Inactive metoprolol succinate ER 200 mg tablet,extended release 24 hr RxNorm: 015832 Take 1 Tablet(s) Oral QD 07/08/19 021 Inactive Vitamin D3 25 mcg (1,000 unit) tablet RxNorm: 432316 Take 1 Tablet(s) Oral QD 07/08/19 021 Inactive isosorbide dinitrate 30 mg tablet RxNorm: 569271 Take 1 Tablet(s) Oral QD 07/08/19 021 Inactive Levemir FlexTouch U-100 Insulin 100 unit/mL (3 mL) subcutaneous pen RxNorm: 876846 Inject 140 Unit(s) Subcutaneous BID 07/08/19 Inactive venlafaxine 75 mg tablet RxNorm: 652481 Take 1 Tablet(s) Oral QD 07/08/19 Inactive acetaminophen 500 mg tablet RxNorm: 241431 Take 1 Tablet(s) Oral TID as needed for headache 06/18/19 021 Inactive acetaminophen 500 mg tablet RxNorm: 994451 Take 1 Tablet(s) Oral TID as needed for headache 06/18/19 Inactive Lyrica 100 mg capsule RxNorm: 897064 Take 1 Capsule(s) Oral QHS every night at bedtime 06/11/19 021 Inactive Lyrica 50 mg capsule RxNorm: 600392 Take 1 Capsule(s) Oral QAM every morning 06/10/19 21 021 Inactive hydrocortisone 2.5 % topical cream RxNorm: 115004 Apply to bilateral groin creases Topical BID 05/15/20 20 021 Inactive clotrimazole 1 % topical cream RxNorm: 015611 Apply to bilateral groin areas Topical BID 05/15/20 20 021 Inactive Lyrica 50 mg capsule RxNorm: 464690 Take 1 Capsule(s) Oral QAM every morning 05/14/20 20 020 Inactive Lyrica 100 mg capsule RxNorm: 974999 Take 1 Capsule(s) Oral QHS every night [...] Inactive Nystop 100,000 unit/gram topical powder RxNorm: 510821 Apply to abd folds, under breasts and L side of groin Topical BID x 14 days, then BID PRN 04/08/20 20 021 Inactive dx: yeast dermatitis Lyrica 100 mg capsule RxNorm: 762333 Take 1 Capsule(s) Oral QHS every night at bedtime 03/13/20 20 Inactive Lyrica 50 mg capsule RxNorm: 696766 Take 1 Capsule(s) Oral QAM every morning 03/13/20 20 Inactive ketoconazole 2 % shampoo RxNorm: 867389 Apply Topical two times a week with showers 03/11/20 20 Inactive cholecalciferol (vitamin D3) 50 mcg (2,000 unit) tablet RxNorm: 931289 Take 1 Tablet(s) Oral QD 03/11/20 20 Inactive Zetia 10 mg tablet RxNorm: 267999 Take 1 Tablet(s) Oral QD 03/07/20 20 021 Inactive Zetia 10 mg tablet RxNorm: 880211 Take 1 Tablet(s) Oral QD 03/07/20 20 Inactive Lyrica 50 mg capsule RxNorm: 648485 Take 1 Capsule(s) Oral QAM every morning 02/15/20 20 Inactive Lyrica 100 mg capsule RxNorm: 998156 Take 1 Capsule(s) Oral QHS every night at bedtime 02/15/20 20 Inactive Lyrica 100 mg capsule RxNorm: 997392 Take 1 Capsule(s) Oral QHS every night at bedtime 02/15/20 20 Inactive Lyrica 50 mg capsule RxNorm: 726011 Take 1 Capsule(s) Oral QAM every morning 02/15/20 20 Inactive venlafaxine ER 75 mg capsule,extended release 24 hr RxNorm: 031361 Take 3 Capsule(s) Oral QD 06/12/19 22 Active polyethylene glycol 3350 17 gram/dose oral powder RxNorm: 766096 Take 17=1 capful Gram(s) Oral BID as needed mix with 4-8oz of liquid 06/12/19 22 Active Levemir FlexTouch U-100 Insulin 100 unit/mL (3 mL) subcutaneous pen RxNorm: 634989 Inject 80 Unit(s) Subcutaneous BID 07/14/19 23 023 Inactive loperamide 2 mg capsule RxNorm: 547149 Take 1 Capsule(s) Oral QID as needed 06/12/19 22 Active Novolog Flexpen U-100 Insulin aspart 100 unit/mL (3 mL) subcutaneous RxNorm: 6473978 Insert 30 Unit(s) Subcutaneous TID with meals [...] Total PSA Prostate Specific Antigen (PSA), Total 77075-2 0.20 ng/mL 03/17/20 Unknown Complete Metabolic Panel [...] Complete Metabolic Panel (CMP) CMP Calcium (Ca) 51796-5 8.4 mg/dL 03/17/20 Unknown Complete Metabolic Panel (CMP) CMP Carbon Dioxide (ECO2) 28 mmol/L 03/17/20 Unknown Complete Metabolic Panel (CMP) CMP Chloride (Cl) 2075-0 106 mmol/L 03/17/20 Unknown Complete Metabolic Panel (CMP) CMP Creatinine 2160-0 1.22 mg/dL 03/17/20 Unknown Complete Metabolic Panel (CMP) CMP eGFR 64.00 mL/min/1.7 3m2 03/17/20 Unknown Complete Metabolic Panel (CMP) CMP eGFR 64314-8 77.00 mL/min/1.7 3m2 03/17/20 Unknown Complete Metabolic [...] Vitamin D, 25-Hydroxy VITAD25 Vitamin D, 25-Hydroxy 86352-1 33 ng/mL 03/17/20 22 Unknown TSH Reflex to FT4 [id number] TSH 58352-2 1.88 uIU/mL 03/17/20 22 Unknown CBC without [...] 22 Unknown Hemoglobin A1c HEMOGLOBA Hemoglobin A1c 45680-8 9.4 %A1c 03/17/20 22 Unknown PDFReport PDFReport PDFReport 03/16/20 22 Unknown Procedures Procedure Codes Date DEBRIDE NAIL 6 OR MORE CPT-4: 81570 2 Vital Signs Date Vital 02/10/2022 Blood Pressure 1: 152/51 Code: 8480-6 BMI: NaN Code: 22404-6 Heart Rate 1: 79 bpm Code: 8867-4 Height: 5'5 Code: 8302-2 Respiratory Rate: 18 bpm Temperature: 36.3 (C) / 97.4 (F) Weight: 407 lbs Code: 3141-9 Reason For Visit No Reason For Visit data Encounters Encounter Performer Location Location Address Codes Date (96211) DOMICIL VISIT EST PAT Diagnosis: BMI 60.0-69.9, adult[ICD10: Z68.44] Diagnosis: Hypercoagulable state[ICD10: D68.59] Diagnosis: Hx of deep venous thrombosis[ICD10: Z86.718] Diagnosis: PVD (peripheral vascular disease)[ICD10: I73.9] Diagnosis: Hypertensive heart disease without heart failure[ICD10: I11.9] Diagnosis: Recurrent major depressive disorder, in partial remission[ICD10: F33.41] Diagnosis: Paraparesis of both lower limbs[ICD10: G82.20] Diagnosis: Onychogryposis[ICD10: L60.2] Tapan Shirley [facility] [address] [place] [address] CPT-4: 57676 02/10/2022 Plan of Care Planned Activity Notes Codes Status Date Referral: [facility] WPtel: [address] , [address] [id number] [place] Referral Records Received 09/21/2022 Patient Education: Patient M edication Summary Completed 02/10/2022 Patient Education: Influenza Vaccine Completed 02/10/2022 Referral: [facility] WPtel: [address] [id number] [place] Referral Completed 05/28/2021 Referral: General Cardiology Referral Complet ed 01/03/2021 Referral: General Psychologist Referral Close d Instructions Comment Date Leonid is a Male being seen living at [facility]. Initial [facility] visit 01/2020. PMHx including DMII, CAD w/ 5 stents, Depression, Seizure Disorder and CKD stage 3. He moved into [facility] in 12/2019 but after a hospitalization 05/2021 he moved to the [facility] to have closer nursing attention. Sister Jyotsna involved in his care cell# [phone] Guardian: Don (tapan met in person 09/01/21), now has Lexii (same group as don)Lab Schedule: * 10/06/2022 Hx of deep venous thrombosis Monitor for dizziness, fatigue, weakness, increased heart rate or palpitations, chest pain and shortness of breath. 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 BMI 60.0-69.9, adult Reviewed previous attempts at weight loss which have not been successful in producing prolonged weight loss. Discussed risks associated with obesity and encouraged healthy food choices exercise as tolerated. Hypercoagulable state Monitor for signs/ symptoms of thrombus formation. Peripheral Vascular Disease PVD stable with current medications and support interventions. Depression Consulted [facility]PS psych 11/2021, implemented recommendations. Is set to be seen by psych in the next couple of months. Doing well overall, no changes indicated. Onychogryposis (*8*) toenails debrided today, (*4*) on left foot, (*4*) on right foot. Medical grade nail clippers and electric dremel used to significantly reduce length & thickness. Anti-fungal treatment options reviewed, discussion deferred as treatment not appropriate or beneficial to patient. Patient tolerated procedure well. . 02/10/2022
--- OUTSIDE RECORDS SUMMARY | 2022-11-10 00:28 | XMS_ITS | CCD ---
Author Name Tapan Shirley PA-C Address [address] [place] [address] Phone Organization [facility] Phone Care Team Providers Care Newspaper Carriers Supervisor Name Role Phone Tapan Shirley PA-C Primary Care Provider Unavailabl e Tapan Shirley PA-C Chronic Care Management Unavaila ble Summary Purpose DataExchange Insurance Providers Payer name Policy type / Coverage type Covered libertarian ID Effective Begin Date Effective End Date [place] Part B [id number] Unknown Unknown [place] B [id number] Unknown Unknown Family history Sister Brittany Suggs [...] Assisted 09/03/[address]: 9710709 Non-Smoker / No History of Smoking 09/02/[address]: 235634221 No Alcohol Consum ption 09/02/2020 Allergies, Adverse Reactions, Alerts Substance Reaction Codes Entered Date Inactivated Date Status LISINOPRIL RxNorm: 11296 02/12/2020 No Inactive Da te Active Metformin [...] 289.81 02/10/2022 Active Hypertensive heart disease w [facility] heart failure ICD-10: I11.9 ICD-9: 402.90 02/10/2022 [...] immunization ICD-10: Z23 ICD-9: V03.89 02/10/2022 Resolved rod hanger (current) use of insulin ICD-10: Z79.4 02/10 Resolved Muscular pain ICD-10: M79.10 ICD-9: 729.1 02/10/2022 Resolved Pain of right heel ICD-10: M79.671 ICD-9: 729.5 02/10/2022 Resolved Coronary artery disease invo lving [place] coronary artery of [place] heart, angina presence unspecified ICD-10: I25.10 ICD-9: [...] Fill Instructions Abilify 15 mg tablet RxNorm: 635542 /2 Tablet(s) Oral QD 03/10/20 22 023 Inactive Shingrix (PF) 50 mcg/0.5 mL intramuscular suspension, kit RxNorm: 3099914 Administer 1/2 Milliliter(s) Intramuscular QD one time shingrix step 2 ( step 1 given 11/04/21) WITH needle - Nursing please administer upon arrival and once administered post a bridge message with date of administration, recreation adviser, expiration date, and lot# so we can update [facility] 02/18/20 22 022 Inactive dispense with needle Shingrix (PF) 50 mcg/0.5 mL intramuscular suspension, kit RxNorm: 1742682 Administer 1/2 Milliliter(s) Intramuscular QD one time shingrix step 2 ( step 1 given 11/04/21) WITH needle - Nursing please administer upon arrival and once administered post a bridge message with date of administration, recreation adviser, expiration date, and lot# so we can update [facility] 02/18/20 22 022 Inactive dispense with needle acetaminophen 500 mg tablet RxNorm: 442184 Take 1 Tablet(s) Oral TID 01/08/20 22 023 Active d/c PRN order Lyrica 150 mg capsule RxNorm: 308247 Take 1 Capsule(s) Oral QHS every night at bedtime 01/08/20 22 023 Inactive d/c 100mg dose polyethylene glycol 3350 17 gram/dose oral powder RxNorm: 659622 Take 17=1 capful Gram(s) Oral QD mix with 4-8oz of liquid 01/08/20 22 023 Active take this in addition to BID prn order Lyrica 100 mg capsule RxNorm: 726058 Take 1 Capsule(s) Oral QAM every morning 01/08/20 22 022 Inactive d/c 50mg dose Abilify 5 mg tablet RxNorm: 266739 Take 1 Tablet(s) Oral QD take 1 tab po QD #30 refill 5 dx: MDD 12/12/19 22 022 Inactive Abilify 5 mg tablet RxNorm: 914141 Take 1 Tablet(s) Oral QD take 1 tab po QD #30 refill 5 dx: MDD 12/12/19 22 022 Inactive chlorthalidone 25 mg tablet RxNorm: 468425 Take 1 Tablet(s) Oral QAM every morning 12/10/19 22 023 Active Novolog Flexpen U-100 Insulin aspart 100 unit/mL (3 mL) subcutaneous RxNorm: 8710892 Inject 42 Unit(s) Subcutaneous TID in addition to sliding scale 12/10/19 22 022 Inactive d/c 36u pregabalin 50 mg capsule RxNorm: 570543 Take 1 Capsule(s) Oral QAM every morning 11/12/19 22 022 Inactive tetanus-diphtheria toxoids-Td 2 Lf unit-2 Lf unit/0.5 mL IM suspension RxNorm: 139 Take 0.5 Miscellaneous Intramuscular 11/12/19 22 022 Inactive need tdap - nursing to administer upon arrival pregabalin 50 mg capsule RxNorm: 876636 Take 1 Capsule(s) Oral QAM every morning 10/16/19 22 022 Inactive pregabalin 50 mg capsule RxNorm: 264226 Take 1 Capsule(s) Oral QAM every morning 10/16/19 22 022 Inactive pregabalin 50 mg capsule RxNorm: 667882 1 Capsule(s) Oral QAM every morning 10/15/19 22 022 Inactive Shingrix (PF) 50 mcg/0.5 mL intramuscular suspension, kit RxNorm: 6232484 Administer 1/2 Milliliter(s) Intramuscular one time Nursing please administer upon arrival and once administered post a bridge message with date of administration, recreation adviser, 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 10/09/19 22 022 Inactive shingrix step 1 Shingrix (PF) 50 mcg/0.5 mL intramuscular suspension, kit RxNorm: 7177011 Administer 1/2 Milliliter(s) Intramuscular one time Nursing please administer upon arrival and once administered post a bridge message with date of administration, recreation adviser, 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 10/09/19 22 022 Inactive shingrix step 1 Novolog Flexpen U-100 Insulin aspart 100 unit/mL (3 mL) subcutaneous RxNorm: 6486125 Inject 10 Unit(s) Subcutaneous QHS every night at bedtime with nighttime snack 10/08/19 22 022 Inactive cholecalciferol (vitamin D3) 1,250 mcg (50,000 unit) capsule RxNorm: 207457 Take 1 Capsule(s) Oral QW once a [...] 50 mcg/0.5 mL intramuscular suspension, kit RxNorm: 7888412 ADMINISTER 2-DOSE SERIES PER CDC GUIDELINES 10/08/19 22 Active Shingrix (PF) 50 mcg/0.5 mL intramuscular suspension, kit RxNorm: 4739168 ADMINISTER 2-DOSE SERIES PER CDC GUIDELINES 10/08/19 22 Inactive Novolog Flexpen U-100 Insulin aspart 100 unit/mL (3 mL) subcutaneous RxNorm: 3714145 Inject 36 Unit(s) Subcutaneous TID in addition to sliding scale 10/08/19 Inactive Novofine Autocover 30 gauge x 1/3 needle RxNorm: Use 1 Miscellaneous UD as directed Use 1 needle as directed to administer insulin 5 times a day Dx:E11.42. 10/03/19 Inactive ok to substitute with any covered alternative pen needle benzoyl peroxide 10 % topical cleanser RxNorm: 415056 Apply 1 Application Topical QD apply to face, wash rinse and dry once daily (may change to QOD if drying) 08/19/19 022 Inactive (%covered by insurance) #60ml refill 11 dx: acne benzoyl peroxide 10 % topical cleanser RxNorm: 822152 Apply 1 Application Topical QD apply to face, wash rinse and dry once daily (may change to QOD if drying) 08/19/19 022 Inactive (%covered by insurance) #60ml refill 11 dx: acne benzoyl peroxide 10 % topical cleanser RxNorm: 472863 Apply 1 Application Topical QD apply to face, wash rinse and dry once daily (may change to QOD if drying) 08/19/19 22 022 Inactive (%covered by insurance) #60ml refill 11 dx: acne Lyrica 50 mg capsule RxNorm: 193833 Take 1 Capsule(s) Oral QAM every morning Take 1 capsule by mouth once daily 08/19/19 22 Inactive benzoyl peroxide 10 % topical cleanser RxNorm: 095512 Apply 1 Application Topical QD apply to face, wash rinse and dry once daily (may change to QOD if drying) 08/19/19 22 022 Inactive (%covered by insurance) #60ml refill 11 dx: acne Lyrica 100 mg capsule RxNorm: 137638 Take 1 Capsule(s) Oral QHS every night at bedtime Take 1 capsule by mouth once daily at bedtime 08/19/19 22 022 Inactive Lyrica 100 mg capsule RxNorm: 559578 Take 1 Capsule(s) Oral QHS every night at bedtime Take 1 capsule by mouth once daily at bedtime 08/16/19 22 022 Inactive Lyrica 50 mg capsule RxNorm: 639710 Take 1 Capsule(s) Oral QAM every morning Take 1 capsule by mouth once daily 08/16/19 22 022 Inactive Levemir FlexTouch U-100 Insulin 100 unit/mL (3 mL) subcutaneous pen RxNorm: 586257 Inject 86 Unit(s) Subcutaneous BID 08/05/19 22 022 Inactive d/c 83units BID Lyrica 100 mg capsule RxNorm: 040099 Take 1 Capsule(s) Oral QHS every night at bedtime Take 1 capsule by mouth once daily at bedtime 07/14/19 22 022 Inactive Lyrica 50 mg capsule RxNorm: 574067 Take 1 Capsule(s) Oral QAM every morning Take 1 capsule by mouth once daily 07/14/19 22 022 Inactive Levemir FlexTouch U-100 Insulin 100 unit/mL (3 mL) subcutaneous pen RxNorm: 173055 Inject 83 Unit(s) Subcutaneous BID 07/08/19 22 [...] test strip hydralazine 50 mg tablet RxNorm: 990687 Take 1 Tablet(s) Oral QID 05/05/20 21 Inactive isosorbide mononitrate ER 30 mg tablet,extended release 24 hr RxNorm: 083187 Take 1 Tablet(s) Oral QD 05/05/20 No Stop Date Active venlafaxine ER 225 mg tablet,extended release 24 hr RxNorm: 389992 Take 1 Tablet(s) Oral QD 05/05/20 21 021 Inactive venlafaxine ER 225 mg tablet,extended release 24 hr RxNorm: 218227 Take 1 Tablet(s) Oral QD 05/05/20 21 022 Inactive hydralazine 50 mg tablet RxNorm: 309512 Take 1 Tablet(s) Oral QID 05/05/20 21 Inactive aspirin 81 mg tablet,delayed release RxNorm: 794332 Take 1 Tablet(s) Oral QD 03/31/20 21 Inactive Zetia 10 mg tablet RxNorm: 765435 Take 1 Tablet(s) Oral QD 03/31/20 21 Inactive Vitamin D2 1,250 mcg (50,000 unit) capsule RxNorm: 1615755 Take 1 Capsule(s) Oral QW once a week x 12 weeks 03/31/20 022 Inactive Vitamin D2 1,250 mcg (50,000 unit) capsule RxNorm: 7262160 Take 1 Capsule(s) Oral QW once a week 03/31/20 Inactive Zetia 10 mg tablet RxNorm: 148280 Take 1 Tablet(s) Oral QD 03/31/20 Inactive hydralazine 25 mg tablet RxNorm: 141441 Take 1 Tablet(s) Oral QID 03/31/20 021 Inactive hydralazine 25 mg tablet RxNorm: 927917 Take 1 Tablet(s) Oral QID 03/31/20 Inactive hydralazine 10 mg tablet RxNorm: 865793 Take 1 Tablet(s) Oral QID 03/03/20 021 Inactive cephalexin 500 mg tablet RxNorm: 796984 Take 1 Tablet(s) Oral QID 02/27/20 021 Inactive cephalexin 500 mg tablet RxNorm: 268314 Take 1 Tablet(s) Oral QID 02/27/20 021 Inactive lisinopril 40 mg tablet RxNorm: 064491 Take 1 Tablet(s) Oral QD 02/11/20 21 023 Inactive Eliquis 5 mg tablet RxNorm: 8640543 Take 1 Tablet(s) Oral BID 01/05/20 21 022 Inactive Eliquis 5 mg tablet RxNorm: 9829561 Take 2 Tablet(s) Oral QD 01/01/20 21 021 Inactive Lyrica 50 mg capsule RxNorm: 085076 Take 1 Capsule(s) Oral QAM every morning 12/24/19 21 021 Inactive Lyrica 100 mg capsule RxNorm: 158355 Take 1 Capsule(s) Oral QHS every night at bedtime 12/24/19 21 021 Inactive clotrimazole 1 % topical cream RxNorm: 974671 Apply to right foot and toes Topical BID 12/04/19 21 023 Inactive metoprolol succinate ER 200 mg tablet,extended release 24 hr RxNorm: 656416 Take 1 Tablet(s) Oral QD 12/04/19 023 Inactive ciprofloxacin 500 mg tablet RxNorm: 584521 Take 1 Tablet(s) Oral QD 11/30/19 21 021 Inactive DX ofloxacin otic drops Accu-Chek Guide test strips RxNorm: USE 1 TO CHECK GLUCOSE 4 TIMES DAILY AND NEEDED 11/15/19 21 023 Inactive Blood Glucose Test strips RxNorm: Use 1 Test Strip QID at PRN 11/05/19 21 023 Inactive E11.42 lisinopril 30 mg tablet RxNorm: 452468 Take 1 Tablet(s) Oral QD 10/30/19 021 Inactive lisinopril 20 mg tablet RxNorm: 050061 Take 1 Tablet(s) Oral QD 10/23/19 021 Inactive lisinopril 20 mg tablet RxNorm: 294909 Take 1 Tablet(s) Oral QD 10/23/19 021 Inactive lisinopril 10 mg tablet RxNorm: 314023 Take 1 Tablet(s) Oral QD 10/02/19 021 Inactive icosapent ethyl 1 gram capsule RxNorm: 1872491 Take 2 Capsule(s) (2 gm) Oral BID with meals 09/12/19 022 Inactive Okay to dispense one 2gm tab if you have that available. icosapent ethyl 1 gram capsule RxNorm: 4691839 Take 2 Capsule(s) Oral BID 09/12/19 021 Inactive Okay to dispense one 2gm tab if you have that available. amlodipine 10 mg tablet RxNorm: 507480 Take 1 Tablet(s) Oral QD 09/04/19 022 Inactive aspirin 81 mg tablet,delayed release RxNorm: 089472 Take 1 Tablet(s) Oral QD 09/04/19 21 021 Inactive Levemir FlexTouch U-100 Insulin 100 unit/mL (3 mL) subcutaneous pen RxNorm: 109899 Inject 150 Unit(s) Subcutaneous BID 09/04/19 21 022 Inactive venlafaxine ER 150 mg tablet,extended release 24 hr RxNorm: 067034 Take 1 Tablet(s) Oral QD 09/04/19 Inactive clotrimazole-betame thasone 1 %-0.05 % topical cream RxNorm: 889695 Apply to rash on red area on left abdomen/chest Topical BID 08/10/19 21 Inactive amlodipine 5 mg tablet RxNorm: 453678 Take 1 Tablet(s) Oral QD 07/31/19 Inactive cephalexin 500 mg tablet RxNorm: 928098 Take 1 Tablet(s) Oral BID BID - Twice Daily 07/31/19 Inactive Start 08/01/20 pantoprazole 40 mg tablet,delayed release RxNorm: 678750 Take 1 Tablet(s) Oral QAM every morning 07/08/19 022 Inactive senna 8.6 mg tablet RxNorm: 782593 Take 1 Tablet(s) Oral QD 07/08/19 022 Inactive pravastatin 80 mg tablet RxNorm: 545665 Take 1 Tablet(s) Oral QHS every night at bedtime 07/08/19 022 Inactive carbamazepine 200 mg tablet RxNorm: 863748 Take 1 Tablet(s) Oral BID 07/08/19 022 Inactive torsemide 20 mg tablet RxNorm: 709965 Take 1 Tablet(s) Oral QD 07/08/19 023 Inactive clopidogrel 75 mg tablet RxNorm: 105582 Take 1 Tablet(s) Oral QD 07/08/19 021 Inactive Blood Glucose Test strips RxNorm: Use 1 Test Strip QID at PRN 07/08/19 Inactive E11.42 Novolog Flexpen U-100 Insulin aspart 100 unit/mL (3 mL) subcutaneous RxNorm: 2612489 Administer per sliding scale Milliliter(s) Subcutaneous TID 151-200: 10 u; 201-250: 20 u; 251-300: 30 u; 301-350: 40 u; 351-400: 50 u. 07/08/19 21 022 Inactive lisinopril 5 mg tablet RxNorm: 575324 Take 1 Tablet(s) Oral QD 07/08/19 021 Inactive Novolog Flexpen U-100 Insulin aspart 100 unit/mL (3 mL) subcutaneous RxNorm: 7893456 Inject 85 Unit(s) Subcutaneous TID 07/08/19 022 Inactive clotrimazole 1 % topical cream RxNorm: 541399 Apply to bilateral groin areas Topical BID 07/08/19 022 Inactive metoprolol succinate ER 200 mg tablet,extended release 24 hr RxNorm: 755890 Take 1 Tablet(s) Oral QD 07/08/19 021 Inactive Vitamin D3 25 mcg (1,000 unit) tablet RxNorm: 934524 Take 1 Tablet(s) Oral QD 07/08/19 021 Inactive isosorbide dinitrate 30 mg tablet RxNorm: 525323 Take 1 Tablet(s) Oral QD 07/08/19 021 Inactive Levemir FlexTouch U-100 Insulin 100 unit/mL (3 mL) subcutaneous pen RxNorm: 049463 Inject 140 Unit(s) Subcutaneous BID 07/08/19 021 Inactive venlafaxine 75 mg tablet RxNorm: 469161 Take 1 Tablet(s) Oral QD 07/08/19 021 Inactive acetaminophen 500 mg tablet RxNorm: 016104 Take 1 Tablet(s) Oral TID as needed for headache 06/18/19 021 Inactive acetaminophen 500 mg tablet RxNorm: 249835 Take 1 Tablet(s) Oral TID as needed for headache 06/18/19 021 Inactive Lyrica 100 mg capsule RxNorm: 755382 Take 1 Capsule(s) Oral QHS every night at bedtime 06/11/19 021 Inactive Lyrica 50 mg capsule RxNorm: 450927 Take 1 Capsule(s) Oral QAM every morning 06/10/19 21 021 Inactive hydrocortisone 2.5 % topical cream RxNorm: 456498 Apply to bilateral groin creases Topical BID 05/15/20 20 021 Inactive clotrimazole 1 % topical cream RxNorm: 780222 Apply to bilateral groin areas Topical BID 05/15/20 20 Inactive Lyrica 50 mg capsule RxNorm: 195363 Take 1 Capsule(s) Oral QAM every morning 05/14/20 20 Inactive Lyrica 100 mg capsule RxNorm: 464926 Take 1 Capsule(s) Oral QHS every night [...] Inactive Nystop 100,000 unit/gram topical powder RxNorm: 445960 Apply to abd folds, under breasts and L side of groin Topical BID x 14 days, then BID PRN 04/08/20 20 021 Inactive dx: yeast dermatitis Lyrica 100 mg capsule RxNorm: 077740 Take 1 Capsule(s) Oral QHS every night at bedtime 03/13/20 20 Inactive Lyrica 50 mg capsule RxNorm: 983778 Take 1 Capsule(s) Oral QAM every morning 03/13/20 20 020 Inactive ketoconazole 2 % shampoo RxNorm: 927366 Apply Topical two times a week with showers 03/11/20 20 021 Inactive cholecalciferol (vitamin D3) 50 mcg (2,000 unit) tablet RxNorm: 666317 Take 1 Tablet(s) Oral QD 03/11/20 20 Inactive Zetia 10 mg tablet RxNorm: 984950 Take 1 Tablet(s) Oral QD 03/07/20 Inactive Zetia 10 mg tablet RxNorm: 647325 Take 1 Tablet(s) Oral QD 03/07/20 Inactive Lyrica 50 mg capsule RxNorm: 323364 Take 1 Capsule(s) Oral QAM every morning 02/15/20 Inactive Lyrica 100 mg capsule RxNorm: 522935 Take 1 Capsule(s) Oral QHS every night at bedtime 02/15/20 Inactive Lyrica 100 mg capsule RxNorm: 865433 Take 1 Capsule(s) Oral QHS every night at bedtime 02/15/20 Inactive Lyrica 50 mg capsule RxNorm: 062607 Take 1 Capsule(s) Oral QAM every morning 02/15/20 Inactive venlafaxine ER 75 mg capsule,extended release 24 hr RxNorm: 217679 Take 3 Capsule(s) Oral QD 06/12/19 Active polyethylene glycol 3350 17 gram/dose oral powder RxNorm: 542298 Take 17=1 capful Gram(s) Oral BID as needed mix with 4-8oz of liquid 06/12/19 Active Levemir FlexTouch U-100 Insulin 100 unit/mL (3 mL) subcutaneous pen RxNorm: 053041 Inject 80 Unit(s) Subcutaneous BID 07/14/19 23 023 Inactive loperamide 2 mg capsule RxNorm: 208579 Take 1 Capsule(s) Oral QID as needed 06/12/19 22 Active Novolog Flexpen U-100 Insulin aspart 100 unit/mL (3 mL) subcutaneous RxNorm: 1180964 Insert 30 Unit(s) Subcutaneous TID with meals [...] 1: 134/62 Code: 8480-6 BMI: NaN Code: 17095-0 Heart Rate 1: 82 bpm Code: 8867-4 Height: 5'5 Code: 8302-2 Respiratory Rate: 19 bpm Temperature: 36.1 (C) / 97.0 (F) Weight: 345 lbs Code: 3141-9 Reason For Visit No Reason For Visit data Encounters Encounter Performer Location Location Address Codes Date (63370) DOMICIL VISIT EST PAT Diagnosis: Cellulitis[ICD10: L03.90] [...] Reducible umbilical hernia[ICD10: K42.9] Tapan Shirley [facility] [place] [facility] [address] [address] [place] [address] CPT-4: 63476 03/10/2022 Plan of Care Planned Activity Notes Codes Status Date Referral: [facility] W[place]el: [address], [address] [id number] [place] Referral Records Received 09/21/2022 Patient Education: Patient M edication Summary Completed 03/10/2022 Patient Education: Influenza Vaccine Completed 03/10/2022 Appointment: Tapan Shirley W[facility]: [address] [id number] F/U 02/10/2022 Referral: [facility] W[facility]el: [address] [facility] [address] [id number] [place] Referral Completed 05/28/2021 Referral: General Cardiology Referral Complet ed 01/03/2021 Referral: General Psychologist Referral Close d Instructions Comment Date Leonid is a Male being seen living at [facility] [place] [...] Sister Jyotsna involved in his care cell# [phone] Guardian: Don (tapan met in person 09/01/21), now has Lexii (same group as don)Lab Schedule: Mar-* 10/06/2022 Diabetes BGs improving, due for a1c today. Should also be following up with endo as he is on a large dose of insulin and I would like endos involvement. to schedule appt. Reducible umbilical hernia Has had for years - monitor for pain, strangulation, and constipation Depression Moods have improved since he's lost weight and had his BGs better controlled. Continue to encourage activity as tolerated. Cellulitis cellulitis 03/07/22 on abdomen and scrotum, seen in ED and given IV abx and oral abx. Skin has improved, continue plan in place. . 03/10/2022
--- OUTSIDE RECORDS SUMMARY | 2022-11-10 00:29 | XMS_ITS | CCD ---
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 Name Role Phone Tapan Shirley PA-C Primary Care Provider Unavailabl e Tapan Shirley PA-C Chronic Care Management Unavaila ble Summary Purpose DataExchange Insurance Providers Payer name Policy type / Coverage type Covered libertarian ID Effective Begin Date Effective End Date [place] [id number] Unknown [place] [id number] Unknown Unknown Family history Sister Brittany Suggs Diagnosis Age At Onset No Family Disease Entered N/A Runs in the family Diagnosis Age At Onset No Known Diseases N/A Sister Blanka Mcduffie Diagnosis Age At Onset No Family Disease Entered N/A Social History Social History Element Codes Description Effec tive Dates Marital status Unknown Single 10/07/2021 Living arrangements Unknown Intermediate 09/03/[address]: 1832342 Non-Smoker / No History of Smoking 09/02/[address]: 848302776 No Alcohol Consum ption 09/02/2020 Allergies, Adverse Reactions, Alerts Substance Reaction Codes Entered Date Inactivated Date Status LISINOPRIL RxNorm: 39052 02/12/2020 No Inactive Da te Active Metformin [...] immunization ICD-10: Z23 ICD-9: V03.89 02/10/2022 Resolved senior care (current) use of insulin ICD-10: Z79.4 02/10 Resolved Muscular pain ICD-10: M79.10 ICD-9: 729.1 02/10/2022 Resolved Pain of right heel ICD-10: M79.671 ICD-9: 729.5 02/10/2022 Resolved 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, angina presence unspecified ICD-10: I25.10 ICD-9: [...] Fill Instructions diphenhydramine 50 mg tablet RxNorm: 6624958 Take 1 Tablet(s) Oral Q6H every 6 hours as needed 04/06/20 22 022 Inactive diphenhydramine 50 mg tablet RxNorm: 5669690 1 Tablet(s) Oral Q6H every 6 hours as needed 04/06/20 22 022 Inactive Abilify 15 mg tablet RxNorm: 940229 1/2 Tablet(s) Oral QD 03/10/20 22 023 Inactive Shingrix (PF) 50 mcg/0.5 mL intramuscular suspension, kit RxNorm: 7113506 Administer 1/2 Milliliter(s) Intramuscular QD one time shingrix step 2 ( step 1 given 11/04/21) WITH needle - Nursing please administer upon arrival and once administered post a bridge message with date of administration, product development coordinator, expiration date, and lot# so we can update [facility] 02/18/20 22 022 Inactive dispense with needle Shingrix (PF) 50 mcg/0.5 mL intramuscular suspension, kit RxNorm: 9660030 Administer 1/2 Milliliter(s) Intramuscular QD one time shingrix step 2 ( step 1 given 11/04/21) WITH needle - Nursing please administer upon arrival and once administered post a bridge message with date of administration, product development coordinator, expiration date, and lot# so we can update [facility] 02/18/20 22 Inactive dispense with needle acetaminophen 500 mg tablet RxNorm: 986389 Take 1 Tablet(s) Oral TID 01/08/20 22 023 Active d/c PRN order Lyrica 150 mg capsule RxNorm: 024417 Take 1 Capsule(s) Oral QHS every night at bedtime 01/08/20 22 023 Inactive d/c 100mg dose polyethylene glycol 3350 17 gram/dose oral powder RxNorm: 504431 Take 17=1 capful Gram(s) Oral QD mix with 4-8oz of liquid 01/08/20 22 023 Active take this in addition to BID prn order Lyrica 100 mg capsule RxNorm: 781304 Take 1 Capsule(s) Oral QAM every morning 01/08/20 22 022 Inactive d/c 50mg dose Abilify 5 mg tablet RxNorm: 518261 Take 1 Tablet(s) Oral QD take 1 tab po QD #30 refill 5 dx: MDD 12/12/19 22 022 Inactive Abilify 5 mg tablet RxNorm: 327664 Take 1 Tablet(s) Oral QD take 1 tab po QD #30 refill 5 dx: MDD 12/12/19 22 022 Inactive chlorthalidone 25 mg tablet RxNorm: 280107 Take 1 Tablet(s) Oral QAM every morning 12/10/19 22 023 Active Novolog Flexpen U-100 Insulin aspart 100 unit/mL (3 mL) subcutaneous RxNorm: 2794793 Inject 42 Unit(s) Subcutaneous TID in addition to sliding scale 12/10/19 22 022 Inactive d/c 36u pregabalin 50 mg capsule RxNorm: 016752 Take 1 Capsule(s) Oral QAM every morning 11/12/19 22 022 Inactive tetanus-diphtheria toxoids-Td 2 Lf unit-2 Lf unit/0.5 mL IM suspension RxNorm: 139 Take 0.5 Miscellaneous Intramuscular 11/12/19 22 022 Inactive need tdap - nursing to administer upon arrival pregabalin 50 mg capsule RxNorm: 996092 Take 1 Capsule(s) Oral QAM every morning 10/16/19 22 Inactive pregabalin 50 mg capsule RxNorm: 686113 Take 1 Capsule(s) Oral QAM every morning 10/16/19 22 022 Inactive pregabalin 50 mg capsule RxNorm: 968393 1 Capsule(s) Oral QAM every morning 10/15/19 22 022 Inactive Shingrix (PF) 50 mcg/0.5 mL intramuscular suspension, kit RxNorm: 7974586 Administer 1/2 Milliliter(s) Intramuscular one time Nursing please administer upon arrival and once administered post a bridge message with date of administration, product development coordinator, 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 10/09/19 22 022 Inactive shingrix step 1 Shingrix (PF) 50 mcg/0.5 mL intramuscular suspension, kit RxNorm: 8040626 Administer 1/2 Milliliter(s) Intramuscular one time Nursing please administer upon arrival and once administered post a bridge message with date of administration, product development coordinator, 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 10/09/19 22 022 Inactive shingrix step 1 Novolog Flexpen U-100 Insulin aspart 100 unit/mL (3 mL) subcutaneous RxNorm: 1831052 Inject 10 Unit(s) Subcutaneous QHS every night at bedtime with nighttime snack 10/08/19 022 Inactive cholecalciferol (vitamin D3) 1,250 mcg (50,000 unit) capsule RxNorm: 466983 Take 1 Capsule(s) Oral QW once a [...] 50 mcg/0.5 mL intramuscular suspension, kit RxNorm: 3264871 ADMINISTER 2-DOSE SERIES PER CDC GUIDELINES 10/08/19 22 Active Shingrix (PF) 50 mcg/0.5 mL intramuscular suspension, kit RxNorm: 5193494 ADMINISTER 2-DOSE SERIES PER CDC GUIDELINES 10/08/19 22 Inactive Novolog Flexpen U-100 Insulin aspart 100 unit/mL (3 mL) subcutaneous RxNorm: 9103491 Inject 36 Unit(s) Subcutaneous TID in addition to sliding scale 10/08/19 Inactive Novofine Autocover 30 gauge x 1/3 needle RxNorm: Use 1 Miscellaneous UD as directed Use 1 needle as directed to administer insulin 5 times a day Dx:E11.42. 10/03/19 Inactive ok to substitute with any covered alternative pen needle benzoyl peroxide 10 % topical cleanser RxNorm: 232236 Apply 1 Application Topical QD apply to face, wash rinse and dry once daily (may change to QOD if drying) 08/19/19 Inactive (%covered by insurance) #60ml refill 11 dx: acne benzoyl peroxide 10 % topical cleanser RxNorm: 957408 Apply 1 Application Topical QD apply to face, wash rinse and dry once daily (may change to QOD if drying) 08/19/19 022 Inactive (%covered by insurance) #60ml refill 11 dx: acne benzoyl peroxide 10 % topical cleanser RxNorm: 367998 Apply 1 Application Topical QD apply to face, wash rinse and dry once daily (may change to QOD if drying) 08/19/19 22 022 Inactive (%covered by insurance) #60ml refill 11 dx: acne Lyrica 50 mg capsule RxNorm: 553144 Take 1 Capsule(s) Oral QAM every morning Take 1 capsule by mouth once daily 08/19/19 22 Inactive benzoyl peroxide 10 % topical cleanser RxNorm: 415511 Apply 1 Application Topical QD apply to face, wash rinse and dry once daily (may change to QOD if drying) 08/19/19 22 022 Inactive (%covered by insurance) #60ml refill 11 dx: acne Lyrica 100 mg capsule RxNorm: 807565 Take 1 Capsule(s) Oral QHS every night at bedtime Take 1 capsule by mouth once daily at bedtime 08/19/19 22 022 Inactive Lyrica 100 mg capsule RxNorm: 444278 Take 1 Capsule(s) Oral QHS every night at bedtime Take 1 capsule by mouth once daily at bedtime 08/16/19 22 022 Inactive Lyrica 50 mg capsule RxNorm: 302700 Take 1 Capsule(s) Oral QAM every morning Take 1 capsule by mouth once daily 08/16/19 22 022 Inactive Levemir FlexTouch U-100 Insulin 100 unit/mL (3 mL) subcutaneous pen RxNorm: 642562 Inject 86 Unit(s) Subcutaneous BID 08/05/19 22 022 Inactive d/c 83units BID Lyrica 100 mg capsule RxNorm: 088377 Take 1 Capsule(s) Oral QHS every night at bedtime Take 1 capsule by mouth once daily at bedtime 07/14/19 22 022 Inactive Lyrica 50 mg capsule RxNorm: 898156 Take 1 Capsule(s) Oral QAM every morning Take 1 capsule by mouth once daily 07/14/19 22 022 Inactive Levemir FlexTouch U-100 Insulin 100 unit/mL (3 mL) subcutaneous pen RxNorm: 431395 Inject 83 Unit(s) Subcutaneous BID 07/08/19 22 [...] test strip hydralazine 50 mg tablet RxNorm: 756918 Take 1 Tablet(s) Oral QID 05/05/20 21 Inactive isosorbide mononitrate ER 30 mg tablet,extended release 24 hr RxNorm: 859274 Take 1 Tablet(s) Oral QD 05/05/20 No Stop Date Active venlafaxine ER 225 mg tablet,extended release 24 hr RxNorm: 871869 Take 1 Tablet(s) Oral QD 05/05/20 21 021 Inactive venlafaxine ER 225 mg tablet,extended release 24 hr RxNorm: 392227 Take 1 Tablet(s) Oral QD 05/05/20 21 022 Inactive hydralazine 50 mg tablet RxNorm: 852863 Take 1 Tablet(s) Oral QID 05/05/20 21 Inactive aspirin 81 mg tablet,delayed release RxNorm: 417184 Take 1 Tablet(s) Oral QD 03/31/20 21 022 Inactive Zetia 10 mg tablet RxNorm: 678814 Take 1 Tablet(s) Oral QD 03/31/20 Inactive Vitamin D2 1,250 mcg (50,000 unit) capsule RxNorm: 4833700 Take 1 Capsule(s) Oral QW once a week x 12 weeks 03/31/20 Inactive Vitamin D2 1,250 mcg (50,000 unit) capsule RxNorm: 2687624 Take 1 Capsule(s) Oral QW once a week 03/31/20 Inactive Zetia 10 mg tablet RxNorm: 700508 Take 1 Tablet(s) Oral QD 03/31/20 Inactive hydralazine 25 mg tablet RxNorm: 719179 Take 1 Tablet(s) Oral QID 03/31/20 Inactive hydralazine 25 mg tablet RxNorm: 728019 Take 1 Tablet(s) Oral QID 03/31/20 Inactive hydralazine 10 mg tablet RxNorm: 223696 Take 1 Tablet(s) Oral QID 03/03/20 021 Inactive cephalexin 500 mg tablet RxNorm: 049224 Take 1 Tablet(s) Oral QID 02/27/20 021 Inactive cephalexin 500 mg tablet RxNorm: 329582 Take 1 Tablet(s) Oral QID 02/27/20 021 Inactive lisinopril 40 mg tablet RxNorm: 423397 Take 1 Tablet(s) Oral QD 02/11/20 023 Inactive Eliquis 5 mg tablet RxNorm: 3391568 Take 1 Tablet(s) Oral BID 01/05/20 022 Inactive Eliquis 5 mg tablet RxNorm: 1767596 Take 2 Tablet(s) Oral QD 01/01/20 021 Inactive Lyrica 50 mg capsule RxNorm: 932574 Take 1 Capsule(s) Oral QAM every morning 12/24/19 021 Inactive Lyrica 100 mg capsule RxNorm: 225455 Take 1 Capsule(s) Oral QHS every night at bedtime 12/24/19 021 Inactive clotrimazole 1 % topical cream RxNorm: 477960 Apply to right foot and toes Topical BID 12/04/19 21 023 Inactive metoprolol succinate ER 200 mg tablet,extended release 24 hr RxNorm: 891614 Take 1 Tablet(s) Oral QD 12/04/19 21 023 Inactive ciprofloxacin 500 mg tablet RxNorm: 308505 Take 1 Tablet(s) Oral QD 11/30/19 21 021 Inactive DX ofloxacin otic drops Accu-Chek Guide test strips RxNorm: USE 1 TO CHECK GLUCOSE 4 TIMES DAILY AND NEEDED 11/15/19 21 023 Inactive Blood Glucose Test strips RxNorm: Use 1 Test Strip QID at PRN 11/05/19 21 023 Inactive E11.42 lisinopril 30 mg tablet RxNorm: 073984 Take 1 Tablet(s) Oral QD 10/30/19 021 Inactive lisinopril 20 mg tablet RxNorm: 460423 Take 1 Tablet(s) Oral QD 10/23/19 21 021 Inactive lisinopril 20 mg tablet RxNorm: 147048 Take 1 Tablet(s) Oral QD 10/23/19 21 021 Inactive lisinopril 10 mg tablet RxNorm: 585344 Take 1 Tablet(s) Oral QD 10/02/19 21 021 Inactive icosapent ethyl 1 gram capsule RxNorm: 2837848 Take 2 Capsule(s) (2 gm) Oral BID with meals 09/12/19 022 Inactive Okay to dispense one 2gm tab if you have that available. icosapent ethyl 1 gram capsule RxNorm: 1262717 Take 2 Capsule(s) Oral BID 09/12/19 21 021 Inactive Okay to dispense one 2gm tab if you have that available. amlodipine 10 mg tablet RxNorm: 956668 Take 1 Tablet(s) Oral QD 09/04/19 21 022 Inactive aspirin 81 mg tablet,delayed release RxNorm: 339811 Take 1 Tablet(s) Oral QD 09/04/19 21 021 Inactive Levemir FlexTouch U-100 Insulin 100 unit/mL (3 mL) subcutaneous pen RxNorm: 558864 Inject 150 Unit(s) Subcutaneous BID 09/04/19 022 Inactive venlafaxine ER 150 mg tablet,extended release 24 hr RxNorm: 973434 Take 1 Tablet(s) Oral QD 09/04/19 021 Inactive clotrimazole-betame thasone 1 %-0.05 % topical cream RxNorm: 258534 Apply to rash on red area on left abdomen/chest Topical BID 08/10/19 21 Inactive amlodipine 5 mg tablet RxNorm: 177875 Take 1 Tablet(s) Oral QD 07/31/19 Inactive cephalexin 500 mg tablet RxNorm: 539896 Take 1 Tablet(s) Oral BID BID - Twice Daily 07/31/19 021 Inactive Start 08/01/20 pantoprazole 40 mg tablet,delayed release RxNorm: 855754 Take 1 Tablet(s) Oral QAM every morning 07/08/19 022 Inactive senna 8.6 mg tablet RxNorm: 167365 Take 1 Tablet(s) Oral QD 07/08/19 022 Inactive pravastatin 80 mg tablet RxNorm: 968067 Take 1 Tablet(s) Oral QHS every night at bedtime 07/08/19 022 Inactive carbamazepine 200 mg tablet RxNorm: 905029 Take 1 Tablet(s) Oral BID 07/08/19 022 Inactive torsemide 20 mg tablet RxNorm: 059285 Take 1 Tablet(s) Oral QD 07/08/19 21 023 Inactive clopidogrel 75 mg tablet RxNorm: 810628 Take 1 Tablet(s) Oral QD 07/08/19 021 Inactive Blood Glucose Test strips RxNorm: Use 1 Test Strip QID at PRN 07/08/19 21 021 Inactive E11.42 Novolog Flexpen U-100 Insulin aspart 100 unit/mL (3 mL) subcutaneous RxNorm: 5840665 Administer per sliding scale Milliliter(s) Subcutaneous TID 151-200: 10 u; 201-250: 20 u; 251-300: 30 u; 301-350: 40 u; 351-400: 50 u. 07/08/19 21 022 Inactive lisinopril 5 mg tablet RxNorm: 829815 Take 1 Tablet(s) Oral QD 07/08/19 021 Inactive Novolog Flexpen U-100 Insulin aspart 100 unit/mL (3 mL) subcutaneous RxNorm: 9950509 Inject 85 Unit(s) Subcutaneous TID 07/08/19 21 022 Inactive clotrimazole 1 % topical cream RxNorm: 643724 Apply to bilateral groin areas Topical BID 07/08/19 21 022 Inactive metoprolol succinate ER 200 mg tablet,extended release 24 hr RxNorm: 846566 Take 1 Tablet(s) Oral QD 07/08/19 Inactive Vitamin D3 25 mcg (1,000 unit) tablet RxNorm: 902634 Take 1 Tablet(s) Oral QD 07/08/19 021 Inactive isosorbide dinitrate 30 mg tablet RxNorm: 349651 Take 1 Tablet(s) Oral QD 07/08/19 021 Inactive Levemir FlexTouch U-100 Insulin 100 unit/mL (3 mL) subcutaneous pen RxNorm: 725680 Inject 140 Unit(s) Subcutaneous BID 07/08/19 Inactive venlafaxine 75 mg tablet RxNorm: 597541 Take 1 Tablet(s) Oral QD 07/08/19 Inactive acetaminophen 500 mg tablet RxNorm: 022738 Take 1 Tablet(s) Oral TID as needed for headache 06/18/19 Inactive acetaminophen 500 mg tablet RxNorm: 222021 Take 1 Tablet(s) Oral TID as needed for headache 06/18/19 Inactive Lyrica 100 mg capsule RxNorm: 856573 Take 1 Capsule(s) Oral QHS every night at bedtime 06/11/19 021 Inactive Lyrica 50 mg capsule RxNorm: 244812 Take 1 Capsule(s) Oral QAM every morning 06/10/19 021 Inactive hydrocortisone 2.5 % topical cream RxNorm: 167253 Apply to bilateral groin creases Topical BID 05/15/20 20 021 Inactive clotrimazole 1 % topical cream RxNorm: 392824 Apply to bilateral groin areas Topical BID 05/15/20 20 021 Inactive Lyrica 50 mg capsule RxNorm: 347406 Take 1 Capsule(s) Oral QAM every morning 05/14/20 20 Inactive Lyrica 100 mg capsule RxNorm: 385906 Take 1 Capsule(s) Oral QHS every night [...] Inactive Nystop 100,000 unit/gram topical powder RxNorm: 374640 Apply to abd folds, under breasts and L side of groin Topical BID x 14 days, then BID PRN 04/08/20 20 021 Inactive dx: yeast dermatitis Lyrica 100 mg capsule RxNorm: 272444 Take 1 Capsule(s) Oral QHS every night at bedtime 03/13/20 20 Inactive Lyrica 50 mg capsule RxNorm: 953349 Take 1 Capsule(s) Oral QAM every morning 03/13/20 20 020 Inactive ketoconazole 2 % shampoo RxNorm: 017443 Apply Topical two times a week with showers 03/11/20 20 Inactive cholecalciferol (vitamin D3) 50 mcg (2,000 unit) tablet RxNorm: 118741 Take 1 Tablet(s) Oral QD 03/11/20 Inactive Zetia 10 mg tablet RxNorm: 160619 Take 1 Tablet(s) Oral QD 03/07/20 Inactive Zetia 10 mg tablet RxNorm: 086628 Take 1 Tablet(s) Oral QD 03/07/20 Inactive Lyrica 50 mg capsule RxNorm: 170551 Take 1 Capsule(s) Oral QAM every morning 02/15/20 Inactive Lyrica 100 mg capsule RxNorm: 976057 Take 1 Capsule(s) Oral QHS every night at bedtime 02/15/20 Inactive Lyrica 100 mg capsule RxNorm: 876956 Take 1 Capsule(s) Oral QHS every night at bedtime 02/15/20 Inactive Lyrica 50 mg capsule RxNorm: 970982 Take 1 Capsule(s) Oral QAM every morning 02/15/20 Inactive venlafaxine ER 75 mg capsule,extended release 24 hr RxNorm: 705400 Take 3 Capsule(s) Oral QD 06/12/19 Active polyethylene glycol 3350 17 gram/dose oral powder RxNorm: 460720 Take 17=1 capful Gram(s) Oral BID as needed mix with 4-8oz of liquid 06/12/19 Active Levemir FlexTouch U-100 Insulin 100 unit/mL (3 mL) subcutaneous pen RxNorm: 208829 Inject 80 Unit(s) Subcutaneous BID 07/14/19 23 023 Inactive loperamide 2 mg capsule RxNorm: 390862 Take 1 Capsule(s) Oral QID as needed 06/12/19 22 Active Novolog Flexpen U-100 Insulin aspart 100 unit/mL (3 mL) subcutaneous RxNorm: 5821817 Insert 30 Unit(s) Subcutaneous TID with meals [...] Date Referral: [facility] WPtel: [phone], [address] [id number] [place] Referral Records Received 09/21/2022 Referral: [facility] WPtel: [address] [id number] [place] Referral Completed 05/28/2021 Referral: General Cardiology [...] Sister Jyotsna involved in his care cell# [phone] Guardian: Don (tapan met in person 09/01/21), now has Lexii (same group as don)Lab Schedule: * 10/06/2022
--- OUTSIDE RECORDS SUMMARY | 2022-11-10 00:29 | XMS_ITS | CCD ---
Author Name Tapan Shirley PA-C Address [address] [place] [address] Phone Organization [facility] Phone Care Team Providers Care Gas Controller Name Role Phone Tapan Shirley PA-C Primary Care Provider Unavailabl e Tapan Shirley PA-C Chronic Care Management Unavaila ble Summary Purpose DataExchange Insurance Providers Payer name Policy type / Coverage type Covered republican ID Effective Begin Date Effective End Date [place] Medicare Part B [id number] Unknown Unknown [place] Medicare Part B [id number] Unknown Unknown Family history Sister Brittany Suggs Diagnosis Age At Onset No Family Disease Entered N/A Runs in the family Diagnosis Age At Onset No Known Diseases N/A Sister Blanka Mcduffie Diagnosis Age At Onset No Family Disease Entered N/A Social History Social History Element Codes Description Effec tive Dates Marital status Unknown Single 10/07/2021 Living arrangements Unknown Penitentiary 09/03/[address]: 3964624 Non-Smoker / No History of Smoking 09/02/[address]: 919846044 No Alcohol Consum ption 09/02/2020 Allergies, Adverse Reactions, Alerts Substance Reaction Codes Entered Date Inactivated Date Status LISINOPRIL RxNorm: 03615 02/12/2020 No Inactive Da te Active Metformin HCl Unknown 02/12/2020 No Inactive Cristiano e Active Problems Condition Codes Effective Dates Condition St atus Coronary artery disease invo lving big sandy [...] immunization ICD-10: Z23 ICD-9: V03.89 02/10/2022 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 ICD-10: Z79.4 02/10 [...] sulfate HFA 90 mcg/actuation aerosol inhaler RxNorm: 1174493 Take 2 Puff(s) Inhalation Q4H every four hours as needed as needed for SOB, cough, or wheezing 04/07/20 030 Active diphenhydramine 50 mg tablet RxNorm: 0497744 Take 1 Tablet(s) Oral Q6H every 6 hours as needed 04/06/20 22 022 Inactive diphenhydramine 50 mg tablet RxNorm: 3813876 1 Tablet(s) Oral Q6H every 6 hours as needed 04/06/20 22 022 Inactive Abilify 15 mg tablet RxNorm: 723567 1/2 Tablet(s) Oral QD 03/10/20 22 023 Inactive Shingrix (PF) 50 mcg/0.5 mL intramuscular suspension, kit RxNorm: 9105041 Administer 1/2 Milliliter(s) Intramuscular QD one time shingrix step 2 ( step 1 given 11/04/21) WITH needle - Nursing please administer upon arrival and once administered post a bridge message with date of administration, workers' compensation hearings officer, expiration date, and lot# so we can update [facility] 02/18/20 22 022 Inactive dispense with needle Shingrix (PF) 50 mcg/0.5 mL intramuscular suspension, kit RxNorm: 2857766 Administer 1/2 Milliliter(s) Intramuscular QD one time shingrix step 2 ( step 1 given 11/04/21) WITH needle - Nursing please administer upon arrival and once administered post a bridge message with date of administration, workers' compensation hearings officer, expiration date, and lot# so we can update [facility] 02/18/20 22 022 Inactive dispense with needle acetaminophen 500 mg tablet RxNorm: 270490 Take 1 Tablet(s) Oral TID 01/08/20 22 023 Active d/c PRN order Lyrica 150 mg capsule RxNorm: 406100 Take 1 Capsule(s) Oral QHS every night at bedtime 01/08/20 22 023 Inactive d/c 100mg dose polyethylene glycol 3350 17 gram/dose oral powder RxNorm: 631293 Take 17=1 capful Gram(s) Oral QD mix with 4-8oz of liquid 01/08/20 22 023 Active take this in addition to BID prn order Lyrica 100 mg capsule RxNorm: 430047 Take 1 Capsule(s) Oral QAM every morning 01/08/20 22 022 Inactive d/c 50mg dose Abilify 5 mg tablet RxNorm: 380761 Take 1 Tablet(s) Oral QD take 1 tab po QD #30 refill 5 dx: MDD 12/12/19 22 022 Inactive Abilify 5 mg tablet RxNorm: 568974 Take 1 Tablet(s) Oral QD take 1 tab po QD #30 refill 5 dx: MDD 12/12/19 22 022 Inactive chlorthalidone 25 mg tablet RxNorm: 946057 Take 1 Tablet(s) Oral QAM every morning 12/10/19 22 023 Active Novolog Flexpen U-100 Insulin aspart 100 unit/mL (3 mL) subcutaneous RxNorm: 6638691 Inject 42 Unit(s) Subcutaneous TID in addition to sliding scale 12/10/19 22 022 Inactive d/c 36u pregabalin 50 mg capsule RxNorm: 577873 Take 1 Capsule(s) Oral QAM every morning 11/12/19 22 Inactive tetanus-diphtheria toxoids-Td 2 Lf unit-2 Lf unit/0.5 mL IM suspension RxNorm: 139 Take 0.5 Miscellaneous Intramuscular 11/12/19 22 022 Inactive need tdap - nursing to administer upon arrival pregabalin 50 mg capsule RxNorm: 940047 Take 1 Capsule(s) Oral QAM every morning 10/16/19 022 Inactive pregabalin 50 mg capsule RxNorm: 642653 Take 1 Capsule(s) Oral QAM every morning 10/16/19 22 022 Inactive pregabalin 50 mg capsule RxNorm: 756105 1 Capsule(s) Oral QAM every morning 10/15/19 22 022 Inactive Shingrix (PF) 50 mcg/0.5 mL intramuscular suspension, kit RxNorm: 1765287 Administer 1/2 Milliliter(s) Intramuscular one time Nursing please administer upon arrival and once administered post a bridge message with date of administration, workers' compensation hearings officer, 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 10/09/19 22 022 Inactive shingrix step 1 Shingrix (PF) 50 mcg/0.5 mL intramuscular suspension, kit RxNorm: 1356758 Administer 1/2 Milliliter(s) Intramuscular one time Nursing please administer upon arrival and once administered post a bridge message with date of administration, workers' compensation hearings officer, 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 10/09/19 22 022 Inactive shingrix step 1 Novolog Flexpen U-100 Insulin aspart 100 unit/mL (3 mL) subcutaneous RxNorm: 5281150 Inject 10 Unit(s) Subcutaneous QHS every night at bedtime with nighttime snack 10/08/19 22 022 Inactive cholecalciferol (vitamin D3) 1,250 mcg (50,000 unit) capsule RxNorm: 426213 Take 1 Capsule(s) Oral QW once a [...] 50 mcg/0.5 mL intramuscular suspension, kit RxNorm: 2947734 ADMINISTER 2-DOSE SERIES PER CDC GUIDELINES 10/08/19 22 Active Shingrix (PF) 50 mcg/0.5 mL intramuscular suspension, kit RxNorm: 2352926 ADMINISTER 2-DOSE SERIES PER CDC GUIDELINES 10/08/19 22 Inactive Novolog Flexpen U-100 Insulin aspart 100 unit/mL (3 mL) subcutaneous RxNorm: 9699495 Inject 36 Unit(s) Subcutaneous TID in addition to sliding scale 10/08/19 22 Inactive Novofine Autocover 30 gauge x 1/3 needle RxNorm: Use 1 Miscellaneous UD as directed Use 1 needle as directed to administer insulin 5 times a day Dx:E11.42. 10/03/19 Inactive ok to substitute with any covered alternative pen needle benzoyl peroxide 10 % topical cleanser RxNorm: 345154 Apply 1 Application Topical QD apply to face, wash rinse and dry once daily (may change to QOD if drying) 08/19/19 22 022 Inactive (%covered by insurance) #60ml refill 11 dx: acne benzoyl peroxide 10 % topical cleanser RxNorm: 928917 Apply 1 Application Topical QD apply to face, wash rinse and dry once daily (may change to QOD if drying) 08/19/19 22 022 Inactive (%covered by insurance) #60ml refill 11 dx: acne benzoyl peroxide 10 % topical cleanser RxNorm: 951343 Apply 1 Application Topical QD apply to face, wash rinse and dry once daily (may change to QOD if drying) 08/19/19 22 022 Inactive (%covered by insurance) #60ml refill 11 dx: acne Lyrica 50 mg capsule RxNorm: 899814 Take 1 Capsule(s) Oral QAM every morning Take 1 capsule by mouth once daily 08/19/19 22 022 Inactive benzoyl peroxide 10 % topical cleanser RxNorm: 874060 Apply 1 Application Topical QD apply to face, wash rinse and dry once daily (may change to QOD if drying) 08/19/19 22 022 Inactive (%covered by insurance) #60ml refill 11 dx: acne Lyrica 100 mg capsule RxNorm: 183620 Take 1 Capsule(s) Oral QHS every night at bedtime Take 1 capsule by mouth once daily at bedtime 08/19/19 22 022 Inactive Lyrica 100 mg capsule RxNorm: 258921 Take 1 Capsule(s) Oral QHS every night at bedtime Take 1 capsule by mouth once daily at bedtime 08/16/19 22 022 Inactive Lyrica 50 mg capsule RxNorm: 348319 Take 1 Capsule(s) Oral QAM every morning Take 1 capsule by mouth once daily 08/16/19 22 022 Inactive Levemir FlexTouch U-100 Insulin 100 unit/mL (3 mL) subcutaneous pen RxNorm: 194987 Inject 86 Unit(s) Subcutaneous BID 08/05/19 22 022 Inactive d/c 83units BID Lyrica 100 mg capsule RxNorm: 622521 Take 1 Capsule(s) Oral QHS every night at bedtime Take 1 capsule by mouth once daily at bedtime 07/14/19 22 022 Inactive Lyrica 50 mg capsule RxNorm: 848367 Take 1 Capsule(s) Oral QAM every morning Take 1 capsule by mouth once daily 07/14/19 22 022 Inactive Levemir FlexTouch U-100 Insulin 100 unit/mL (3 mL) subcutaneous pen RxNorm: 448810 Inject 83 Unit(s) Subcutaneous BID 07/08/19 22 [...] test strip hydralazine 50 mg tablet RxNorm: 927104 Take 1 Tablet(s) Oral QID 05/05/20 21 022 Inactive isosorbide mononitrate ER 30 mg tablet,extended release 24 hr RxNorm: 488751 Take 1 Tablet(s) Oral QD 05/05/20 No Stop Date Active venlafaxine ER 225 mg tablet,extended release 24 hr RxNorm: 784637 Take 1 Tablet(s) Oral QD 05/05/20 21 021 Inactive venlafaxine ER 225 mg tablet,extended release 24 hr RxNorm: 663207 Take 1 Tablet(s) Oral QD 05/05/20 022 Inactive hydralazine 50 mg tablet RxNorm: 004046 Take 1 Tablet(s) Oral QID 05/05/20 Inactive aspirin 81 mg tablet,delayed release RxNorm: 736227 Take 1 Tablet(s) Oral QD 03/31/20 Inactive Zetia 10 mg tablet RxNorm: 363054 Take 1 Tablet(s) Oral QD 03/31/20 Inactive Vitamin D2 1,250 mcg (50,000 unit) capsule RxNorm: 1554897 Take 1 Capsule(s) Oral QW once a week x 12 weeks 03/31/20 Inactive Vitamin D2 1,250 mcg (50,000 unit) capsule RxNorm: 5875777 Take 1 Capsule(s) Oral QW once a week 03/31/20 Inactive Zetia 10 mg tablet RxNorm: 751820 Take 1 Tablet(s) Oral QD 03/31/20 Inactive hydralazine 25 mg tablet RxNorm: 390888 Take 1 Tablet(s) Oral QID 03/31/20 021 Inactive hydralazine 25 mg tablet RxNorm: 127264 Take 1 Tablet(s) Oral QID 03/31/20 Inactive hydralazine 10 mg tablet RxNorm: 883303 Take 1 Tablet(s) Oral QID 03/03/20 021 Inactive cephalexin 500 mg tablet RxNorm: 202759 Take 1 Tablet(s) Oral QID 02/27/20 021 Inactive cephalexin 500 mg tablet RxNorm: 854073 Take 1 Tablet(s) Oral QID 02/27/20 021 Inactive lisinopril 40 mg tablet RxNorm: 205853 Take 1 Tablet(s) Oral QD 02/11/20 023 Inactive Eliquis 5 mg tablet RxNorm: 5503419 Take 1 Tablet(s) Oral BID 01/05/20 022 Inactive Eliquis 5 mg tablet RxNorm: 5608242 Take 2 Tablet(s) Oral QD 01/01/20 21 021 Inactive Lyrica 50 mg capsule RxNorm: 667845 Take 1 Capsule(s) Oral QAM every morning 12/24/19 021 Inactive Lyrica 100 mg capsule RxNorm: 759474 Take 1 Capsule(s) Oral QHS every night at bedtime 12/24/19 021 Inactive clotrimazole 1 % topical cream RxNorm: 680303 Apply to right foot and toes Topical BID 12/04/19 21 023 Inactive metoprolol succinate ER 200 mg tablet,extended release 24 hr RxNorm: 766849 Take 1 Tablet(s) Oral QD 12/04/19 023 Inactive ciprofloxacin 500 mg tablet RxNorm: 774666 Take 1 Tablet(s) Oral QD 11/30/19 021 Inactive DX ofloxacin otic drops Accu-Chek Guide test strips RxNorm: USE 1 TO CHECK GLUCOSE 4 TIMES DAILY AND NEEDED 11/15/19 21 023 Inactive Blood Glucose Test strips RxNorm: Use 1 Test Strip QID at PRN 11/05/19 21 023 Inactive E11.42 lisinopril 30 mg tablet RxNorm: 696766 Take 1 Tablet(s) Oral QD 10/30/19 021 Inactive lisinopril 20 mg tablet RxNorm: 509362 Take 1 Tablet(s) Oral QD 10/23/19 021 Inactive lisinopril 20 mg tablet RxNorm: 591457 Take 1 Tablet(s) Oral QD 10/23/19 021 Inactive lisinopril 10 mg tablet RxNorm: 391749 Take 1 Tablet(s) Oral QD 10/02/19 21 021 Inactive icosapent ethyl 1 gram capsule RxNorm: 6214445 Take 2 Capsule(s) (2 gm) Oral BID with meals 09/12/19 21 022 Inactive Okay to dispense one 2gm tab if you have that available. icosapent ethyl 1 gram capsule RxNorm: 7342742 Take 2 Capsule(s) Oral BID 09/12/19 21 Inactive Okay to dispense one 2gm tab if you have that available. amlodipine 10 mg tablet RxNorm: 272856 Take 1 Tablet(s) Oral QD 09/04/19 022 Inactive aspirin 81 mg tablet,delayed release RxNorm: 642252 Take 1 Tablet(s) Oral QD 09/04/19 Inactive Levemir FlexTouch U-100 Insulin 100 unit/mL (3 mL) subcutaneous pen RxNorm: 497947 Inject 150 Unit(s) Subcutaneous BID 09/04/19 Inactive venlafaxine ER 150 mg tablet,extended release 24 hr RxNorm: 833511 Take 1 Tablet(s) Oral QD 09/04/19 Inactive clotrimazole-betame thasone 1 %-0.05 % topical cream RxNorm: 016213 Apply to rash on red area on left abdomen/chest Topical BID 08/10/19 Inactive amlodipine 5 mg tablet RxNorm: 078936 Take 1 Tablet(s) Oral QD 07/31/19 Inactive cephalexin 500 mg tablet RxNorm: 358922 Take 1 Tablet(s) Oral BID BID - Twice Daily 07/31/19 021 Inactive Start 08/01/20 pantoprazole 40 mg tablet,delayed release RxNorm: 729532 Take 1 Tablet(s) Oral QAM every morning 07/08/19 022 Inactive senna 8.6 mg tablet RxNorm: 759145 Take 1 Tablet(s) Oral QD 07/08/19 022 Inactive pravastatin 80 mg tablet RxNorm: 898970 Take 1 Tablet(s) Oral QHS every night at bedtime 07/08/19 Inactive carbamazepine 200 mg tablet RxNorm: 846134 Take 1 Tablet(s) Oral BID 07/08/19 022 Inactive torsemide 20 mg tablet RxNorm: 486375 Take 1 Tablet(s) Oral QD 07/08/19 21 023 Inactive clopidogrel 75 mg tablet RxNorm: 789962 Take 1 Tablet(s) Oral QD 07/08/19 21 021 Inactive Blood Glucose Test strips RxNorm: Use 1 Test Strip QID at PRN 07/08/19 21 Inactive E11.42 Novolog Flexpen U-100 Insulin aspart 100 unit/mL (3 mL) subcutaneous RxNorm: 8488142 Administer per sliding scale Milliliter(s) Subcutaneous TID 151-200: 10 u; 201-250: 20 u; 251-300: 30 u; 301-350: 40 u; 351-400: 50 u. 07/08/19 21 022 Inactive lisinopril 5 mg tablet RxNorm: 534928 Take 1 Tablet(s) Oral QD 07/08/19 021 Inactive Novolog Flexpen U-100 Insulin aspart 100 unit/mL (3 mL) subcutaneous RxNorm: 4795762 Inject 85 Unit(s) Subcutaneous TID 07/08/19 21 022 Inactive clotrimazole 1 % topical cream RxNorm: 910579 Apply to bilateral groin areas Topical BID 07/08/19 21 022 Inactive metoprolol succinate ER 200 mg tablet,extended release 24 hr RxNorm: 223915 Take 1 Tablet(s) Oral QD 07/08/19 21 021 Inactive Vitamin D3 25 mcg (1,000 unit) tablet RxNorm: 767102 Take 1 Tablet(s) Oral QD 07/08/19 021 Inactive isosorbide dinitrate 30 mg tablet RxNorm: 230515 Take 1 Tablet(s) Oral QD 07/08/19 21 021 Inactive Levemir FlexTouch U-100 Insulin 100 unit/mL (3 mL) subcutaneous pen RxNorm: 175313 Inject 140 Unit(s) Subcutaneous BID 07/08/19 21 021 Inactive venlafaxine 75 mg tablet RxNorm: 897429 Take 1 Tablet(s) Oral QD 07/08/19 21 021 Inactive acetaminophen 500 mg tablet RxNorm: 651964 Take 1 Tablet(s) Oral TID as needed for headache 06/18/19 21 021 Inactive acetaminophen 500 mg tablet RxNorm: 923053 Take 1 Tablet(s) Oral TID as needed for headache 06/18/19 21 021 Inactive Lyrica 100 mg capsule RxNorm: 735852 Take 1 Capsule(s) Oral QHS every night at bedtime 06/11/19 21 021 Inactive Lyrica 50 mg capsule RxNorm: 312890 Take 1 Capsule(s) Oral QAM every morning 06/10/19 21 021 Inactive hydrocortisone 2.5 % topical cream RxNorm: 107607 Apply to bilateral groin creases Topical BID 05/15/20 20 021 Inactive clotrimazole 1 % topical cream RxNorm: 203157 Apply to bilateral groin areas Topical BID 05/15/20 20 021 Inactive Lyrica 50 mg capsule RxNorm: 666769 Take 1 Capsule(s) Oral QAM every morning 05/14/20 20 020 Inactive Lyrica 100 mg capsule RxNorm: 602687 Take 1 Capsule(s) Oral QHS every night [...] Inactive Nystop 100,000 unit/gram topical powder RxNorm: 678433 Apply to abd folds, under breasts and L side of groin Topical BID x 14 days, then BID PRN 04/08/20 20 Inactive dx: yeast dermatitis Lyrica 100 mg capsule RxNorm: 798324 Take 1 Capsule(s) Oral QHS every night at bedtime 03/13/20 Inactive Lyrica 50 mg capsule RxNorm: 144071 Take 1 Capsule(s) Oral QAM every morning 03/13/20 20 Inactive ketoconazole 2 % shampoo RxNorm: 989112 Apply Topical two times a week with showers 03/11/20 20 Inactive cholecalciferol (vitamin D3) 50 mcg (2,000 unit) tablet RxNorm: 965539 Take 1 Tablet(s) Oral QD 03/11/20 Inactive Zetia 10 mg tablet RxNorm: 080754 Take 1 Tablet(s) Oral QD 03/07/20 20 Inactive Zetia 10 mg tablet RxNorm: 697179 Take 1 Tablet(s) Oral QD 03/07/20 20 Inactive Lyrica 50 mg capsule RxNorm: 380800 Take 1 Capsule(s) Oral QAM every morning 02/15/20 20 Inactive Lyrica 100 mg capsule RxNorm: 924540 Take 1 Capsule(s) Oral QHS every night at bedtime 02/15/20 20 Inactive Lyrica 100 mg capsule RxNorm: 053956 Take 1 Capsule(s) Oral QHS every night at bedtime 02/15/20 20 Inactive Lyrica 50 mg capsule RxNorm: 473887 Take 1 Capsule(s) Oral QAM every morning 02/15/20 20 Inactive venlafaxine ER 75 mg capsule,extended release 24 hr RxNorm: 570947 Take 3 Capsule(s) Oral QD 06/12/19 Active polyethylene glycol 3350 17 gram/dose oral powder RxNorm: 227558 Take 17=1 capful Gram(s) Oral BID as needed mix with 4-8oz of liquid 06/12/19 Active Levemir FlexTouch U-100 Insulin 100 unit/mL (3 mL) subcutaneous pen RxNorm: 538928 Inject 80 Unit(s) Subcutaneous BID 07/14/19 023 Inactive loperamide 2 mg capsule RxNorm: 711693 Take 1 Capsule(s) Oral QID as needed 06/12/19 Active Novolog Flexpen U-100 Insulin aspart 100 unit/mL (3 mL) subcutaneous RxNorm: 0882652 Insert 30 Unit(s) Subcutaneous TID with meals [...] Encounter Performer Location Location Address Codes Date (42363) DOMICIL VISIT EST PAT w/95 modifier Diagnosis: Hypertensive heart disease without heart failure[ICD10: I11.9] Diagnosis: Hyperlipidemia associated with type 2 diabetes mellitus[ICD10: E11.69] Diagnosis: Stage 2 chronic 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[ICD10: E11.22] Diagnosis: Type 2 diabetes mellitus with diabetic polyneuropathy, with long-term current use of insulin[ICD10: E11.42] Diagnosis: Vitamin D deficiency[ICD10: E55.9] Diagnosis: Coronary artery disease involving big sandy coronary artery of big sandy heart, angina presence unspecified[ICD10: I25.10] Diagnosis: Shortness of breath[ICD10: R06.02] Tapan Shirley [facility] [address] [place] [address] CPT-4: 10201 04/07/2022 Plan of Care Planned Activity Notes Codes Status Date Referral: [facility] WPtel: [address], [address] [id number] Referral Records Received 09/21/2022 Patient Education: Patient M edication Summary Completed 04/07/2022 Patient Education: Influenza Vaccine Completed 04/07/2022 Appointment: Tapan Shirley WPtel: [address] [place] [address] [address] [id number]/U 02/10/2022 Referral: [facility] WPtel: [address] [id number] [place] Referral Completed 05/28/2021 Referral: General Cardiology Referral Complet ed 01/03/2021 Referral: General Psychologist Referral Close d Instructions Comment Date Leonid is a Male being seen living at [facility]. Initial BPS visit 01/2020. PMHx including DMII, CAD w/ 5 stents, Depression, Seizure Disorder and CKD stage 3. He moved into [facility] in 12/2019 but after a hospitalization 05/2021 he moved to the [facility] to have closer nursing attention. Sister Jyotsna involved in his care cell# [phone] Guardian: Don (tapan met in person 09/01/21), now has Lexii (same group as don)Lab Schedule: * 10/06/2022 Diabetes A1C high (9.4%), advising facility to fax BG log and a1c to jeweler apprentice for review and to make the necessary changes. Shortness of breath SOB seems to wax and wane, likely due to undiagnosed COPD and uncontrolled TASHI (patient has been refusing to wear CPAP). Will start inhaler prn and advised patient to use CPAP as much as possible. Has f/u with sports information director in May, less concerned about cardiac cause of SOB as no reported orthopnea. Hypertension Patient continues to push off seeing his sports information director, has appt made for may. BPs variable but he's asymptomatic at this time so will make no changes. Vitamin D Deficiency 03/16/22 D level 33, continue supplement. Ischemic Heart Disease Should be seen by sports information director sooner than May but patient refuses. C/O SOB with exertion, will start inhaler but cards should also be made aware. . 04/07/2022
--- OUTSIDE RECORDS SUMMARY | 2022-11-10 00:30 | XMS_ITS | CCD ---
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 Supervisor [employer] Name Role Phone Tapan Shirley PA-C Primary Care Provider Unavailabl e Tapan Shirley PA-C Chronic Care Management Unavaila ble Summary Purpose DataExchange Insurance Providers Payer name Policy type / Coverage type Covered republican ID Effective Begin Date Effective End Date [place] [id number] Unknown Unknown [place] [id number] Unknown Unknown Family history Sister Brittany Suggs [...] Prison 09/03/19 [address]: 2736044 Non-Smoker / No History of Smoking 09/02/[address]: 283864912 No Alcohol Consum ption 09/02/2020 Allergies, Adverse Reactions, Alerts Substance Reaction Codes Entered Date Inactivated Date Status LISINOPRIL RxNorm: 93765 02/12/2020 No Inactive Da te Active Metformin HCl Unknown 02/12/2020 No Inactive Cristiano e Active Problems Condition Codes Effective Dates Condition St atus Coronary artery disease invo lving [place] coronary artery of [place] heart, angina presence unspecified ICD-10: I25.10 ICD-9: [...] immunization ICD-10: Z23 ICD-9: V03.89 02/10/2022 Resolved rn long term care (current) use of [...] aspart 100 unit/mL (3 mL) subcutaneous RxNorm: 4427622 Inject 10 Unit(s) Subcutaneous QHS every night at bedtime with nighttime snack 04/08/20 Inactive Novolog Flexpen U-100 Insulin aspart 100 unit/mL (3 mL) subcutaneous RxNorm: 9575229 Inject 42 Unit(s) Subcutaneous TID in addition to sliding scale 04/08/20 Inactive d/c 36u albuterol sulfate HFA 90 mcg/actuation aerosol inhaler RxNorm: 0069162 Take 2 Puff(s) Inhalation Q4H every four hours as needed as needed for SOB, cough, or wheezing 04/07/20 030 Active diphenhydramine 50 mg tablet RxNorm: 5554998 Take 1 Tablet(s) Oral Q6H every 6 hours as needed 04/06/20 22 Inactive diphenhydramine 50 mg tablet RxNorm: 9178458 1 Tablet(s) Oral Q6H every 6 hours as needed 04/06/20 Inactive Abilify 15 mg tablet RxNorm: 945495 1/2 Tablet(s) Oral QD 03/10/20 22 023 Inactive Shingrix (PF) 50 mcg/0.5 mL intramuscular suspension, kit RxNorm: 0782764 Administer 1/2 Milliliter(s) Intramuscular QD one time shingrix step 2 ( step 1 given 11/04/21) WITH needle - Nursing please administer upon arrival and once administered post a bridge message with date of administration, rock crusher, expiration date, and lot# so we can update [facility] 02/18/20 22 022 Inactive dispense with needle Shingrix (PF) 50 mcg/0.5 mL intramuscular suspension, kit RxNorm: 9597941 Administer 1/2 Milliliter(s) Intramuscular QD one time shingrix step 2 ( step 1 given 11/04/21) WITH needle - Nursing please administer upon arrival and once administered post a bridge message with date of administration, rock crusher, expiration date, and lot# so we can update [facility] 02/18/20 22 022 Inactive dispense with needle acetaminophen 500 mg tablet RxNorm: 374488 Take 1 Tablet(s) Oral TID 01/08/20 22 023 Active d/c PRN order Lyrica 150 mg capsule RxNorm: 906810 Take 1 Capsule(s) Oral QHS every night at bedtime 01/08/20 22 023 Inactive d/c 100mg dose polyethylene glycol 3350 17 gram/dose oral powder RxNorm: 494553 Take 17=1 capful Gram(s) Oral QD mix with 4-8oz of liquid 01/08/20 22 023 Active take this in addition to BID prn order Lyrica 100 mg capsule RxNorm: 141257 Take 1 Capsule(s) Oral QAM every morning 01/08/20 22 022 Inactive d/c 50mg dose Abilify 5 mg tablet RxNorm: 408743 Take 1 Tablet(s) Oral QD take 1 tab po QD #30 refill 5 dx: MDD 12/12/19 22 022 Inactive Abilify 5 mg tablet RxNorm: 403031 Take 1 Tablet(s) Oral QD take 1 tab po QD #30 refill 5 dx: MDD 12/12/19 22 022 Inactive chlorthalidone 25 mg tablet RxNorm: 361733 Take 1 Tablet(s) Oral QAM every morning 12/10/19 22 023 Active Novolog Flexpen U-100 Insulin aspart 100 unit/mL (3 mL) subcutaneous RxNorm: 3508112 Inject 42 Unit(s) Subcutaneous TID in addition to sliding scale 12/10/19 22 022 Inactive d/c 36u pregabalin 50 mg capsule RxNorm: 261505 Take 1 Capsule(s) Oral QAM every morning 11/12/19 22 022 Inactive tetanus-diphtheria toxoids-Td 2 Lf unit-2 Lf unit/0.5 mL IM suspension RxNorm: 139 Take 0.5 Miscellaneous Intramuscular 11/12/19 022 Inactive need tdap - nursing to administer upon arrival pregabalin 50 mg capsule RxNorm: 404078 Take 1 Capsule(s) Oral QAM every morning 10/16/19 022 Inactive pregabalin 50 mg capsule RxNorm: 679321 Take 1 Capsule(s) Oral QAM every morning 10/16/19 22 022 Inactive pregabalin 50 mg capsule RxNorm: 479798 1 Capsule(s) Oral QAM every morning 10/15/19 22 022 Inactive Shingrix (PF) 50 mcg/0.5 mL intramuscular suspension, kit RxNorm: 9793498 Administer 1/2 Milliliter(s) Intramuscular one time Nursing please administer upon arrival and once administered post a bridge message with date of administration, rock crusher, 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 10/09/19 22 022 Inactive shingrix step 1 Shingrix (PF) 50 mcg/0.5 mL intramuscular suspension, kit RxNorm: 0949082 Administer 1/2 Milliliter(s) Intramuscular one time Nursing please administer upon arrival and once administered post a bridge message with date of administration, rock crusher, 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 10/09/19 22 022 Inactive shingrix step 1 Novolog Flexpen U-100 Insulin aspart 100 unit/mL (3 mL) subcutaneous RxNorm: 4809465 Inject 10 Unit(s) Subcutaneous QHS every night at bedtime with nighttime snack 10/08/19 22 Inactive cholecalciferol (vitamin D3) 1,250 mcg (50,000 unit) capsule RxNorm: 808025 Take 1 Capsule(s) Oral QW once a [...] 50 mcg/0.5 mL intramuscular suspension, kit RxNorm: 8521337 ADMINISTER 2-DOSE SERIES PER CDC GUIDELINES 10/08/19 22 Active Shingrix (PF) 50 mcg/0.5 mL intramuscular suspension, kit RxNorm: 6153595 ADMINISTER 2-DOSE SERIES PER CDC GUIDELINES 10/08/19 22 Inactive Novolog Flexpen U-100 Insulin aspart 100 unit/mL (3 mL) subcutaneous RxNorm: 0540879 Inject 36 Unit(s) Subcutaneous TID in addition to sliding scale 10/08/19 22 Inactive Novofine Autocover 30 gauge x 1/3 needle RxNorm: Use 1 Miscellaneous UD as directed Use 1 needle as directed to administer insulin 5 times a day Dx:E11.42. 10/03/19 22 Inactive ok to substitute with any covered alternative pen needle benzoyl peroxide 10 % topical cleanser RxNorm: 786510 Apply 1 Application Topical QD apply to face, wash rinse and dry once daily (may change to QOD if drying) 08/19/19 22 Inactive (%covered by insurance) #60ml refill 11 dx: acne benzoyl peroxide 10 % topical cleanser RxNorm: 667197 Apply 1 Application Topical QD apply to face, wash rinse and dry once daily (may change to QOD if drying) 08/19/19 22 022 Inactive (%covered by insurance) #60ml refill 11 dx: acne benzoyl peroxide 10 % topical cleanser RxNorm: 850931 Apply 1 Application Topical QD apply to face, wash rinse and dry once daily (may change to QOD if drying) 08/19/19 22 022 Inactive (%covered by insurance) #60ml refill 11 dx: acne Lyrica 50 mg capsule RxNorm: 034004 Take 1 Capsule(s) Oral QAM every morning Take 1 capsule by mouth once daily 08/19/19 022 Inactive benzoyl peroxide 10 % topical cleanser RxNorm: 429839 Apply 1 Application Topical QD apply to face, wash rinse and dry once daily (may change to QOD if drying) 08/19/19 22 022 Inactive (%covered by insurance) #60ml refill 11 dx: acne Lyrica 100 mg capsule RxNorm: 818162 Take 1 Capsule(s) Oral QHS every night at bedtime Take 1 capsule by mouth once daily at bedtime 08/19/19 22 022 Inactive Lyrica 100 mg capsule RxNorm: 049834 Take 1 Capsule(s) Oral QHS every night at bedtime Take 1 capsule by mouth once daily at bedtime 08/16/19 22 Inactive Lyrica 50 mg capsule RxNorm: 196124 Take 1 Capsule(s) Oral QAM every morning Take 1 capsule by mouth once daily 08/16/19 22 Inactive Levemir FlexTouch U-100 Insulin 100 unit/mL (3 mL) subcutaneous pen RxNorm: 702331 Inject 86 Unit(s) Subcutaneous BID 08/05/19 22 Inactive d/c 83units BID Lyrica 100 mg capsule RxNorm: 451246 Take 1 Capsule(s) Oral QHS every night at bedtime Take 1 capsule by mouth once daily at bedtime 07/14/19 22 022 Inactive Lyrica 50 mg capsule RxNorm: 286201 Take 1 Capsule(s) Oral QAM every morning Take 1 capsule by mouth once daily 07/14/19 Inactive Levemir FlexTouch U-100 Insulin 100 unit/mL (3 mL) subcutaneous pen RxNorm: 808373 Inject 83 Unit(s) Subcutaneous BID 07/08/19 22 [...] test strip hydralazine 50 mg tablet RxNorm: 958690 Take 1 Tablet(s) Oral QID 05/05/20 21 Inactive isosorbide mononitrate ER 30 mg tablet,extended release 24 hr RxNorm: 988763 Take 1 Tablet(s) Oral QD 05/05/20 No Stop Date Active venlafaxine ER 225 mg tablet,extended release 24 hr RxNorm: 594904 Take 1 Tablet(s) Oral QD 05/05/20 21 Inactive venlafaxine ER 225 mg tablet,extended release 24 hr RxNorm: 621133 Take 1 Tablet(s) Oral QD 05/05/20 Inactive hydralazine 50 mg tablet RxNorm: 817884 Take 1 Tablet(s) Oral QID 05/05/20 21 Inactive aspirin 81 mg tablet,delayed release RxNorm: 684352 Take 1 Tablet(s) Oral QD 03/31/20 Inactive Zetia 10 mg tablet RxNorm: 919012 Take 1 Tablet(s) Oral QD 03/31/20 Inactive Vitamin D2 1,250 mcg (50,000 unit) capsule RxNorm: 3595576 Take 1 Capsule(s) Oral QW once a week x 12 weeks 03/31/20 Inactive Vitamin D2 1,250 mcg (50,000 unit) capsule RxNorm: 6078644 Take 1 Capsule(s) Oral QW once a week 03/31/20 Inactive Zetia 10 mg tablet RxNorm: 755656 Take 1 Tablet(s) Oral QD 03/31/20 Inactive hydralazine 25 mg tablet RxNorm: 461892 Take 1 Tablet(s) Oral QID 03/31/20 021 Inactive hydralazine 25 mg tablet RxNorm: 055864 Take 1 Tablet(s) Oral QID 03/31/20 Inactive hydralazine 10 mg tablet RxNorm: 194164 Take 1 Tablet(s) Oral QID 03/03/20 Inactive cephalexin 500 mg tablet RxNorm: 021871 Take 1 Tablet(s) Oral QID 02/27/20 21 021 Inactive cephalexin 500 mg tablet RxNorm: 464874 Take 1 Tablet(s) Oral QID 02/27/20 021 Inactive lisinopril 40 mg tablet RxNorm: 938552 Take 1 Tablet(s) Oral QD 02/11/20 023 Inactive Eliquis 5 mg tablet RxNorm: 4241280 Take 1 Tablet(s) Oral BID 01/05/20 21 022 Inactive Eliquis 5 mg tablet RxNorm: 6762719 Take 2 Tablet(s) Oral QD 01/01/20 21 021 Inactive Lyrica 50 mg capsule RxNorm: 400026 Take 1 Capsule(s) Oral QAM every morning 12/24/19 021 Inactive Lyrica 100 mg capsule RxNorm: 089660 Take 1 Capsule(s) Oral QHS every night at bedtime 12/24/19 021 Inactive clotrimazole 1 % topical cream RxNorm: 711506 Apply to right foot and toes Topical BID 12/04/19 21 023 Inactive metoprolol succinate ER 200 mg tablet,extended release 24 hr RxNorm: 398509 Take 1 Tablet(s) Oral QD 12/04/19 023 Inactive ciprofloxacin 500 mg tablet RxNorm: 273452 Take 1 Tablet(s) Oral QD 11/30/19 021 Inactive DX ofloxacin otic drops Accu-Chek Guide test strips RxNorm: USE 1 TO CHECK GLUCOSE 4 TIMES DAILY AND NEEDED 11/15/19 21 023 Inactive Blood Glucose Test strips RxNorm: Use 1 Test Strip QID at PRN 11/05/19 21 023 Inactive E11.42 lisinopril 30 mg tablet RxNorm: 275131 Take 1 Tablet(s) Oral QD 10/30/19 021 Inactive lisinopril 20 mg tablet RxNorm: 724443 Take 1 Tablet(s) Oral QD 10/23/19 21 021 Inactive lisinopril 20 mg tablet RxNorm: 152715 Take 1 Tablet(s) Oral QD 10/23/19 21 021 Inactive lisinopril 10 mg tablet RxNorm: 322575 Take 1 Tablet(s) Oral QD 10/02/19 21 Inactive icosapent ethyl 1 gram capsule RxNorm: 7543129 Take 2 Capsule(s) (2 gm) Oral BID with meals 09/12/19 Inactive Okay to dispense one 2gm tab if you have that available. icosapent ethyl 1 gram capsule RxNorm: 7763859 Take 2 Capsule(s) Oral BID 09/12/19 Inactive Okay to dispense one 2gm tab if you have that available. amlodipine 10 mg tablet RxNorm: 482097 Take 1 Tablet(s) Oral QD 09/04/19 Inactive aspirin 81 mg tablet,delayed release RxNorm: 022867 Take 1 Tablet(s) Oral QD 09/04/19 Inactive Levemir FlexTouch U-100 Insulin 100 unit/mL (3 mL) subcutaneous pen RxNorm: 307691 Inject 150 Unit(s) Subcutaneous BID 09/04/19 Inactive venlafaxine ER 150 mg tablet,extended release 24 hr RxNorm: 232142 Take 1 Tablet(s) Oral QD 09/04/19 Inactive clotrimazole-betame thasone 1 %-0.05 % topical cream RxNorm: 868226 Apply to rash on red area on left abdomen/chest Topical BID 08/10/19 Inactive amlodipine 5 mg tablet RxNorm: 577016 Take 1 Tablet(s) Oral QD 07/31/19 Inactive cephalexin 500 mg tablet RxNorm: 151276 Take 1 Tablet(s) Oral BID BID - Twice Daily 07/31/19 021 Inactive Start 08/01/20 pantoprazole 40 mg tablet,delayed release RxNorm: 511310 Take 1 Tablet(s) Oral QAM every morning 07/08/19 022 Inactive senna 8.6 mg tablet RxNorm: 066017 Take 1 Tablet(s) Oral QD 07/08/19 022 Inactive pravastatin 80 mg tablet RxNorm: 027468 Take 1 Tablet(s) Oral QHS every night at bedtime 07/08/19 21 022 Inactive carbamazepine 200 mg tablet RxNorm: 061539 Take 1 Tablet(s) Oral BID 07/08/19 21 022 Inactive torsemide 20 mg tablet RxNorm: 369809 Take 1 Tablet(s) Oral QD 07/08/19 21 023 Inactive clopidogrel 75 mg tablet RxNorm: 382702 Take 1 Tablet(s) Oral QD 07/08/19 21 021 Inactive Blood Glucose Test strips RxNorm: Use 1 Test Strip QID at PRN 07/08/19 Inactive E11.42 Novolog Flexpen U-100 Insulin aspart 100 unit/mL (3 mL) subcutaneous RxNorm: 5137158 Administer per sliding scale Milliliter(s) Subcutaneous TID 151-200: 10 u; 201-250: 20 u; 251-300: 30 u; 301-350: 40 u; 351-400: 50 u. 07/08/19 022 Inactive lisinopril 5 mg tablet RxNorm: 206653 Take 1 Tablet(s) Oral QD 07/08/19 021 Inactive Novolog Flexpen U-100 Insulin aspart 100 unit/mL (3 mL) subcutaneous RxNorm: 5288844 Inject 85 Unit(s) Subcutaneous TID 07/08/19 022 Inactive clotrimazole 1 % topical cream RxNorm: 712895 Apply to bilateral groin areas Topical BID 07/08/19 21 022 Inactive metoprolol succinate ER 200 mg tablet,extended release 24 hr RxNorm: 508974 Take 1 Tablet(s) Oral QD 07/08/19 021 Inactive Vitamin D3 25 mcg (1,000 unit) tablet RxNorm: 072996 Take 1 Tablet(s) Oral QD 07/08/19 021 Inactive isosorbide dinitrate 30 mg tablet RxNorm: 088582 Take 1 Tablet(s) Oral QD 07/08/19 21 021 Inactive Levemir FlexTouch U-100 Insulin 100 unit/mL (3 mL) subcutaneous pen RxNorm: 767481 Inject 140 Unit(s) Subcutaneous BID 07/08/19 21 021 Inactive venlafaxine 75 mg tablet RxNorm: 697547 Take 1 Tablet(s) Oral QD 07/08/19 21 021 Inactive acetaminophen 500 mg tablet RxNorm: 798680 Take 1 Tablet(s) Oral TID as needed for headache 06/18/19 21 021 Inactive acetaminophen 500 mg tablet RxNorm: 652346 Take 1 Tablet(s) Oral TID as needed for headache 06/18/19 21 021 Inactive Lyrica 100 mg capsule RxNorm: 512999 Take 1 Capsule(s) Oral QHS every night at bedtime 06/11/19 21 021 Inactive Lyrica 50 mg capsule RxNorm: 945542 Take 1 Capsule(s) Oral QAM every morning 06/10/19 21 021 Inactive hydrocortisone 2.5 % topical cream RxNorm: 075268 Apply to bilateral groin creases Topical BID 05/15/20 20 021 Inactive clotrimazole 1 % topical cream RxNorm: 817202 Apply to bilateral groin areas Topical BID 05/15/20 20 021 Inactive Lyrica 50 mg capsule RxNorm: 369259 Take 1 Capsule(s) Oral QAM every morning 05/14/20 20 020 Inactive Lyrica 100 mg capsule RxNorm: 945596 Take 1 Capsule(s) Oral QHS every night [...] Inactive Nystop 100,000 unit/gram topical powder RxNorm: 322719 Apply to abd folds, under breasts and L side of groin Topical BID x 14 days, then BID PRN 04/08/20 20 021 Inactive dx: yeast dermatitis Lyrica 100 mg capsule RxNorm: 704346 Take 1 Capsule(s) Oral QHS every night at bedtime 03/13/20 20 Inactive Lyrica 50 mg capsule RxNorm: 813981 Take 1 Capsule(s) Oral QAM every morning 03/13/20 Inactive ketoconazole 2 % shampoo RxNorm: 658717 Apply Topical two times a week with showers 03/11/20 20 Inactive cholecalciferol (vitamin D3) 50 mcg (2,000 unit) tablet RxNorm: 466442 Take 1 Tablet(s) Oral QD 03/11/20 20 Inactive Zetia 10 mg tablet RxNorm: 553398 Take 1 Tablet(s) Oral QD 03/07/20 20 021 Inactive Zetia 10 mg tablet RxNorm: 787149 Take 1 Tablet(s) Oral QD 03/07/20 20 Inactive Lyrica 50 mg capsule RxNorm: 343791 Take 1 Capsule(s) Oral QAM every morning 02/15/20 20 Inactive Lyrica 100 mg capsule RxNorm: 257592 Take 1 Capsule(s) Oral QHS every night at bedtime 02/15/20 20 Inactive Lyrica 100 mg capsule RxNorm: 262340 Take 1 Capsule(s) Oral QHS every night at bedtime 02/15/20 20 Inactive Lyrica 50 mg capsule RxNorm: 837009 Take 1 Capsule(s) Oral QAM every morning 02/15/20 20 Inactive venlafaxine ER 75 mg capsule,extended release 24 hr RxNorm: 736659 Take 3 Capsule(s) Oral QD 06/12/19 Active polyethylene glycol 3350 17 gram/dose oral powder RxNorm: 354641 Take 17=1 capful Gram(s) Oral BID as needed mix with 4-8oz of liquid 06/12/19 22 Active Levemir FlexTouch U-100 Insulin 100 unit/mL (3 mL) subcutaneous pen RxNorm: 396532 Inject 80 Unit(s) Subcutaneous BID 07/14/19 23 023 Inactive loperamide 2 mg capsule RxNorm: 183817 Take 1 Capsule(s) Oral QID as needed 06/12/19 22 Active Novolog Flexpen U-100 Insulin aspart 100 unit/mL (3 mL) subcutaneous RxNorm: 0856585 Insert 30 Unit(s) Subcutaneous TID with meals [...] [facility]: [address], [address] [id number] [place] Referral Records Received 09/21/2022 Referral: [facility] [place]: [address] [id number] [place] Referral Completed 05/28/2021 Referral: General Cardiology [...] [facility]. Sister Jyotsna involved in his care cell# [phone] Guardian: Don (tapan met in person 09/01/21), now has Lexii (same group as don)Lab Schedule: * 10/06/2022
--- OUTSIDE RECORDS SUMMARY | 2022-11-10 00:32 | XMS_ITS | CCD ---
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 Name Role Phone Tapan Shirley PA-C Primary Care Provider Unavailabl e Tapan Shirley PA-C Chronic Care Management Unavaila ble Summary Purpose DataExchange Insurance Providers Payer name Policy type / Coverage type Covered alliance party ID Effective Begin Date Effective End Date Medicare MD Medicare Part B [id number] Unknown Unknown Medicaid MD Medicare Part B [id number] Unknown Unknown Family history Sister Brittany Suggs Diagnosis Age At Onset No Family Disease Entered N/A Runs in the family Diagnosis Age At Onset No Known Diseases N/A Sister Blanka Mcduffie Diagnosis Age At Onset No Family Disease Entered N/A Social History Social History Element Codes Description Effec tive Dates Marital status Unknown Single 10/07/2021 Living arrangements Unknown Long Term 09/03/[address]: 7504320 Non-Smoker / No History of Smoking 09/02/[address]: 134520351 No Alcohol Consum ption 09/02/2020 Allergies, Adverse Reactions, Alerts Substance Reaction Codes Entered Date Inactivated Date Status LISINOPRIL RxNorm: 54526 02/12/2020 No Inactive Da te Active Metformin [...] 05/01/2022 Active Coronary artery disease invo lving [place] coronary artery of [place] heart, angina presence unspecified ICD-10: I25.10 [...] Fill Instructions aripiprazole 15 mg tablet RxNorm: 444775 05/18 TAB (7.5MG) ORALLY DAILY (DX:MAJOR DEPRESSIVE DISORDER) 06/05/19 23 023 Inactive pregabalin 100 mg capsule RxNorm: 087461 1 Capsule(s) Oral QAM every morning 06/02/19 023 Inactive Banophen 50 mg capsule RxNorm: 3088123 Take 1 Capsule(s) Oral Q6H every 6 hours as needed 05/19/19 No Stop Date Active Novolog Flexpen U-100 Insulin aspart 100 unit/mL (3 mL) subcutaneous RxNorm: 6923941 Inject 10 Unit(s) Subcutaneous QHS every night at bedtime with nighttime snack 04/08/20 022 Inactive Novolog Flexpen U-100 Insulin aspart 100 unit/mL (3 mL) subcutaneous RxNorm: 4613791 Inject 42 Unit(s) Subcutaneous TID in addition to sliding scale 04/08/20 022 Inactive d/c 36u albuterol sulfate HFA 90 mcg/actuation aerosol inhaler RxNorm: 3074805 Take 2 Puff(s) Inhalation Q4H every four hours as needed as needed for SOB, cough, or wheezing 04/07/20 030 Active Banophen 50 mg capsule RxNorm: 6302173 Take 1 Capsule(s) Oral Q6H every 6 hours as needed 04/06/20 023 Inactive diphenhydramine 50 mg tablet RxNorm: 9691656 Take 1 Tablet(s) Oral Q6H every 6 hours as needed 04/06/20 022 Inactive diphenhydramine 50 mg tablet RxNorm: 7636545 1 Tablet(s) Oral Q6H every 6 hours as needed 04/06/20 022 Inactive Abilify 15 mg tablet RxNorm: 172630 1/2 Tablet(s) Oral QD 03/10/20 023 Inactive Shingrix (PF) 50 mcg/0.5 mL intramuscular suspension, kit RxNorm: 9813675 Administer 1/2 Milliliter(s) Intramuscular QD one time shingrix step 2 ( step 1 given 11/04/21) WITH needle - Nursing please administer upon arrival and once administered post a bridge message with date of administration, digital media planner, expiration date, and lot# so we can update [facility] 02/18/20 22 022 Inactive dispense with needle Shingrix (PF) 50 mcg/0.5 mL intramuscular suspension, kit RxNorm: 5733851 Administer 1/2 Milliliter(s) Intramuscular QD one time shingrix step 2 ( step 1 given 11/04/21) WITH needle - Nursing please administer upon arrival and once administered post a bridge message with date of administration, digital media planner, expiration date, and lot# so we can update [facility] 02/18/20 22 022 Inactive dispense with needle acetaminophen 500 mg tablet RxNorm: 781422 Take 1 Tablet(s) Oral TID 01/08/20 22 023 Active d/c PRN order Lyrica 150 mg capsule RxNorm: 903099 Take 1 Capsule(s) Oral QHS every night at bedtime 01/08/20 22 023 Inactive d/c 100mg dose polyethylene glycol 3350 17 gram/dose oral powder RxNorm: 376495 Take 17=1 capful Gram(s) Oral QD mix with 4-8oz of liquid 01/08/20 22 023 Active take this in addition to BID prn order Lyrica 100 mg capsule RxNorm: 469069 Take 1 Capsule(s) Oral QAM every morning 01/08/20 22 022 Inactive d/c 50mg dose Abilify 5 mg tablet RxNorm: 230614 Take 1 Tablet(s) Oral QD take 1 tab po QD #30 refill 5 dx: MDD 12/12/19 22 022 Inactive Abilify 5 mg tablet RxNorm: 491027 Take 1 Tablet(s) Oral QD take 1 tab po QD #30 refill 5 dx: MDD 12/12/19 22 022 Inactive chlorthalidone 25 mg tablet RxNorm: 963968 Take 1 Tablet(s) Oral QAM every morning 12/10/19 22 023 Active Novolog Flexpen U-100 Insulin aspart 100 unit/mL (3 mL) subcutaneous RxNorm: 9187197 Inject 42 Unit(s) Subcutaneous TID in addition to sliding scale 12/10/19 22 022 Inactive d/c 36u pregabalin 50 mg capsule RxNorm: 170095 Take 1 Capsule(s) Oral QAM every morning 11/12/19 22 022 Inactive tetanus-diphtheria toxoids-Td 2 Lf unit-2 Lf unit/0.5 mL IM suspension RxNorm: 139 Take 0.5 Miscellaneous Intramuscular 11/12/19 22 022 Inactive need tdap - nursing to administer upon arrival pregabalin 50 mg capsule RxNorm: 172930 Take 1 Capsule(s) Oral QAM every morning 10/16/19 22 022 Inactive pregabalin 50 mg capsule RxNorm: 576731 Take 1 Capsule(s) Oral QAM every morning 10/16/19 22 022 Inactive pregabalin 50 mg capsule RxNorm: 074421 1 Capsule(s) Oral QAM every morning 10/15/19 22 022 Inactive Shingrix (PF) 50 mcg/0.5 mL intramuscular suspension, kit RxNorm: 5879567 Administer 1/2 Milliliter(s) Intramuscular one time Nursing please administer upon arrival and once administered post a bridge message with date of administration, digital media planner, 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 10/09/19 22 022 Inactive shingrix step 1 Shingrix (PF) 50 mcg/0.5 mL intramuscular suspension, kit RxNorm: 9573675 Administer 1/2 Milliliter(s) Intramuscular one time Nursing please administer upon arrival and once administered post a bridge message with date of administration, digital media planner, 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 10/09/19 22 022 Inactive shingrix step 1 cholecalciferol (vitamin D3) 1,250 mcg (50,000 unit) capsule RxNorm: 772553 Take 1 Capsule(s) Oral QW once a [...] aspart 100 unit/mL (3 mL) subcutaneous RxNorm: 3568141 Inject 10 Unit(s) Subcutaneous QHS every night at bedtime with nighttime snack 10/08/19 22 022 Inactive Shingrix (PF) 50 mcg/0.5 mL intramuscular suspension, kit RxNorm: 4724549 ADMINISTER 2-DOSE SERIES PER CDC GUIDELINES 10/08/19 22 022 Active Shingrix (PF) 50 mcg/0.5 mL intramuscular suspension, kit RxNorm: 1677779 ADMINISTER 2-DOSE SERIES PER CDC GUIDELINES 10/08/19 22 022 Inactive Novolog Flexpen U-100 Insulin aspart 100 unit/mL (3 mL) subcutaneous RxNorm: 5914017 Inject 36 Unit(s) Subcutaneous TID in addition to sliding scale 10/08/19 Inactive Novofine Autocover 30 gauge x 1/3 needle RxNorm: Use 1 Miscellaneous UD as directed Use 1 needle as directed to administer insulin 5 times a day Dx:E11.42. 10/03/19 22 Inactive ok to substitute with any covered alternative pen needle benzoyl peroxide 10 % topical cleanser RxNorm: 253755 Apply 1 Application Topical QD apply to face, wash rinse and dry once daily (may change to QOD if drying) 08/19/19 022 Inactive (%covered by insurance) #60ml refill 11 dx: acne benzoyl peroxide 10 % topical cleanser RxNorm: 109386 Apply 1 Application Topical QD apply to face, wash rinse and dry once daily (may change to QOD if drying) 08/19/19 022 Inactive (%covered by insurance) #60ml refill 11 dx: acne benzoyl peroxide 10 % topical cleanser RxNorm: 515446 Apply 1 Application Topical QD apply to face, wash rinse and dry once daily (may change to QOD if drying) 08/19/19 022 Inactive (%covered by insurance) #60ml refill 11 dx: acne Lyrica 50 mg capsule RxNorm: 181415 Take 1 Capsule(s) Oral QAM every morning Take 1 capsule by mouth once daily 08/19/19 22 022 Inactive benzoyl peroxide 10 % topical cleanser RxNorm: 711312 Apply 1 Application Topical QD apply to face, wash rinse and dry once daily (may change to QOD if drying) 08/19/19 22 022 Inactive (%covered by insurance) #60ml refill 11 dx: acne Lyrica 100 mg capsule RxNorm: 809326 Take 1 Capsule(s) Oral QHS every night at bedtime Take 1 capsule by mouth once daily at bedtime 08/19/19 22 022 Inactive Lyrica 100 mg capsule RxNorm: 121124 Take 1 Capsule(s) Oral QHS every night at bedtime Take 1 capsule by mouth once daily at bedtime 08/16/19 22 022 Inactive Lyrica 50 mg capsule RxNorm: 712952 Take 1 Capsule(s) Oral QAM every morning Take 1 capsule by mouth once daily 08/16/19 22 022 Inactive Levemir FlexTouch U-100 Insulin 100 unit/mL (3 mL) subcutaneous pen RxNorm: 852594 Inject 86 Unit(s) Subcutaneous BID 08/05/19 22 022 Inactive d/c 83units BID Lyrica 100 mg capsule RxNorm: 891030 Take 1 Capsule(s) Oral QHS every night at bedtime Take 1 capsule by mouth once daily at bedtime 07/14/19 22 022 Inactive Lyrica 50 mg capsule RxNorm: 619664 Take 1 Capsule(s) Oral QAM every morning Take 1 capsule by mouth once daily 07/14/19 22 Inactive Levemir FlexTouch U-100 Insulin 100 unit/mL (3 mL) subcutaneous pen RxNorm: 262709 Inject 83 Unit(s) Subcutaneous BID 07/08/19 22 [...] 30 mg tablet,extended release 24 hr RxNorm: 918328 Take 1 Tablet(s) Oral QD 05/05/20 No Stop Date Active hydralazine 50 mg tablet RxNorm: 164603 Take 1 Tablet(s) Oral QID 05/05/20 21 Inactive venlafaxine ER 225 mg tablet,extended release 24 hr RxNorm: 219114 Take 1 Tablet(s) Oral QD 05/05/20 Inactive venlafaxine ER 225 mg tablet,extended release 24 hr RxNorm: 407128 Take 1 Tablet(s) Oral QD 05/05/20 Inactive hydralazine 50 mg tablet RxNorm: 922461 Take 1 Tablet(s) Oral QID 05/05/20 Inactive aspirin 81 mg tablet,delayed release RxNorm: 382792 Take 1 Tablet(s) Oral QD 03/31/20 Inactive Zetia 10 mg tablet RxNorm: 221804 Take 1 Tablet(s) Oral QD 03/31/20 Inactive Vitamin D2 1,250 mcg (50,000 unit) capsule RxNorm: 0228692 Take 1 Capsule(s) Oral QW once a week x 12 weeks 03/31/20 Inactive Vitamin D2 1,250 mcg (50,000 unit) capsule RxNorm: 3110717 Take 1 Capsule(s) Oral QW once a week 03/31/20 Inactive Zetia 10 mg tablet RxNorm: 173715 Take 1 Tablet(s) Oral QD 03/31/20 021 Inactive hydralazine 25 mg tablet RxNorm: 896378 Take 1 Tablet(s) Oral QID 03/31/20 021 Inactive hydralazine 25 mg tablet RxNorm: 382887 Take 1 Tablet(s) Oral QID 03/31/20 021 Inactive hydralazine 10 mg tablet RxNorm: 710154 Take 1 Tablet(s) Oral QID 03/03/20 021 Inactive cephalexin 500 mg tablet RxNorm: 696218 Take 1 Tablet(s) Oral QID 02/27/20 021 Inactive cephalexin 500 mg tablet RxNorm: 878671 Take 1 Tablet(s) Oral QID 02/27/20 021 Inactive lisinopril 40 mg tablet RxNorm: 565301 Take 1 Tablet(s) Oral QD 02/11/20 023 Inactive Eliquis 5 mg tablet RxNorm: 0791602 Take 1 Tablet(s) Oral BID 01/05/20 022 Inactive Eliquis 5 mg tablet RxNorm: 1777395 Take 2 Tablet(s) Oral QD 01/01/20 21 021 Inactive Lyrica 50 mg capsule RxNorm: 926929 Take 1 Capsule(s) Oral QAM every morning 12/24/19 021 Inactive Lyrica 100 mg capsule RxNorm: 557418 Take 1 Capsule(s) Oral QHS every night at bedtime 12/24/19 21 021 Inactive clotrimazole 1 % topical cream RxNorm: 570018 Apply to right foot and toes Topical BID 12/04/19 21 023 Inactive metoprolol succinate ER 200 mg tablet,extended release 24 hr RxNorm: 619080 Take 1 Tablet(s) Oral QD 12/04/19 21 023 Inactive ciprofloxacin 500 mg tablet RxNorm: 085636 Take 1 Tablet(s) Oral QD 11/30/19 21 021 Inactive DX ofloxacin otic drops Accu-Chek Guide test strips RxNorm: USE 1 TO CHECK GLUCOSE 4 TIMES DAILY AND NEEDED 11/15/19 21 023 Inactive Blood Glucose Test strips RxNorm: Use 1 Test Strip QID at PRN 11/05/19 21 023 Inactive E11.42 lisinopril 30 mg tablet RxNorm: 553844 Take 1 Tablet(s) Oral QD 10/30/19 021 Inactive lisinopril 20 mg tablet RxNorm: 310670 Take 1 Tablet(s) Oral QD 10/23/19 21 021 Inactive lisinopril 20 mg tablet RxNorm: 368102 Take 1 Tablet(s) Oral QD 10/23/19 21 021 Inactive lisinopril 10 mg tablet RxNorm: 842394 Take 1 Tablet(s) Oral QD 10/02/19 021 Inactive icosapent ethyl 1 gram capsule RxNorm: 2247512 Take 2 Capsule(s) (2 gm) Oral BID with meals 09/12/19 022 Inactive Okay to dispense one 2gm tab if you have that available. icosapent ethyl 1 gram capsule RxNorm: 3119782 Take 2 Capsule(s) Oral BID 09/12/19 021 Inactive Okay to dispense one 2gm tab if you have that available. amlodipine 10 mg tablet RxNorm: 219261 Take 1 Tablet(s) Oral QD 09/04/19 022 Inactive aspirin 81 mg tablet,delayed release RxNorm: 290140 Take 1 Tablet(s) Oral QD 09/04/19 21 021 Inactive Levemir FlexTouch U-100 Insulin 100 unit/mL (3 mL) subcutaneous pen RxNorm: 998116 Inject 150 Unit(s) Subcutaneous BID 09/04/19 21 022 Inactive venlafaxine ER 150 mg tablet,extended release 24 hr RxNorm: 365269 Take 1 Tablet(s) Oral QD 09/04/19 21 021 Inactive clotrimazole-betame thasone 1 %-0.05 % topical cream RxNorm: 304354 Apply to rash on red area on left abdomen/chest Topical BID 08/10/19 021 Inactive amlodipine 5 mg tablet RxNorm: 725552 Take 1 Tablet(s) Oral QD 07/31/19 Inactive cephalexin 500 mg tablet RxNorm: 727363 Take 1 Tablet(s) Oral BID BID - Twice Daily 07/31/19 021 Inactive Start 08/01/20 pantoprazole 40 mg tablet,delayed release RxNorm: 510414 Take 1 Tablet(s) Oral QAM every morning 07/08/19 022 Inactive senna 8.6 mg tablet RxNorm: 239265 Take 1 Tablet(s) Oral QD 07/08/19 022 Inactive pravastatin 80 mg tablet RxNorm: 269342 Take 1 Tablet(s) Oral QHS every night at bedtime 07/08/19 022 Inactive carbamazepine 200 mg tablet RxNorm: 226074 Take 1 Tablet(s) Oral BID 07/08/19 022 Inactive torsemide 20 mg tablet RxNorm: 565864 Take 1 Tablet(s) Oral QD 07/08/19 023 Inactive clopidogrel 75 mg tablet RxNorm: 363720 Take 1 Tablet(s) Oral QD 07/08/19 021 Inactive Blood Glucose Test strips RxNorm: Use 1 Test Strip QID at PRN 07/08/19 Inactive E11.42 Novolog Flexpen U-100 Insulin aspart 100 unit/mL (3 mL) subcutaneous RxNorm: 0754619 Administer per sliding scale Milliliter(s) Subcutaneous TID 151-200: 10 u; 201-250: 20 u; 251-300: 30 u; 301-350: 40 u; 351-400: 50 u. 07/08/19 022 Inactive lisinopril 5 mg tablet RxNorm: 751406 Take 1 Tablet(s) Oral QD 07/08/19 021 Inactive Novolog Flexpen U-100 Insulin aspart 100 unit/mL (3 mL) subcutaneous RxNorm: 6772524 Inject 85 Unit(s) Subcutaneous TID 07/08/19 022 Inactive clotrimazole 1 % topical cream RxNorm: 092675 Apply to bilateral groin areas Topical BID 07/08/19 21 022 Inactive metoprolol succinate ER 200 mg tablet,extended release 24 hr RxNorm: 994509 Take 1 Tablet(s) Oral QD 07/08/19 Inactive Vitamin D3 25 mcg (1,000 unit) tablet RxNorm: 186753 Take 1 Tablet(s) Oral QD 07/08/19 021 Inactive isosorbide dinitrate 30 mg tablet RxNorm: 392563 Take 1 Tablet(s) Oral QD 07/08/19 021 Inactive Levemir FlexTouch U-100 Insulin 100 unit/mL (3 mL) subcutaneous pen RxNorm: 001536 Inject 140 Unit(s) Subcutaneous BID 07/08/19 Inactive venlafaxine 75 mg tablet RxNorm: 537497 Take 1 Tablet(s) Oral QD 07/08/19 021 Inactive acetaminophen 500 mg tablet RxNorm: 808267 Take 1 Tablet(s) Oral TID as needed for headache 06/18/19 21 021 Inactive acetaminophen 500 mg tablet RxNorm: 883930 Take 1 Tablet(s) Oral TID as needed for headache 06/18/19 021 Inactive Lyrica 100 mg capsule RxNorm: 055432 Take 1 Capsule(s) Oral QHS every night at bedtime 06/11/19 021 Inactive Lyrica 50 mg capsule RxNorm: 214187 Take 1 Capsule(s) Oral QAM every morning 06/10/19 21 021 Inactive hydrocortisone 2.5 % topical cream RxNorm: 257941 Apply to bilateral groin creases Topical BID 05/15/20 20 021 Inactive clotrimazole 1 % topical cream RxNorm: 912265 Apply to bilateral groin areas Topical BID 05/15/20 20 021 Inactive Lyrica 50 mg capsule RxNorm: 341446 Take 1 Capsule(s) Oral QAM every morning 05/14/20 20 020 Inactive Lyrica 100 mg capsule RxNorm: 392375 Take 1 Capsule(s) Oral QHS every night [...] Inactive Nystop 100,000 unit/gram topical powder RxNorm: 775347 Apply to abd folds, under breasts and L side of groin Topical BID x 14 days, then BID PRN 04/08/20 20 021 Inactive dx: yeast dermatitis Lyrica 100 mg capsule RxNorm: 169574 Take 1 Capsule(s) Oral QHS every night at bedtime 03/13/20 20 Inactive Lyrica 50 mg capsule RxNorm: 086779 Take 1 Capsule(s) Oral QAM every morning 03/13/20 20 Inactive ketoconazole 2 % shampoo RxNorm: 959577 Apply Topical two times a week with showers 03/11/20 20 Inactive cholecalciferol (vitamin D3) 50 mcg (2,000 unit) tablet RxNorm: 727473 Take 1 Tablet(s) Oral QD 03/11/20 20 Inactive Zetia 10 mg tablet RxNorm: 282079 Take 1 Tablet(s) Oral QD 03/07/20 20 021 Inactive Zetia 10 mg tablet RxNorm: 440951 Take 1 Tablet(s) Oral QD 03/07/20 20 Inactive Lyrica 50 mg capsule RxNorm: 136699 Take 1 Capsule(s) Oral QAM every morning 02/15/20 20 Inactive Lyrica 100 mg capsule RxNorm: 305500 Take 1 Capsule(s) Oral QHS every night at bedtime 02/15/20 20 Inactive Lyrica 100 mg capsule RxNorm: 796599 Take 1 Capsule(s) Oral QHS every night at bedtime 02/15/20 20 Inactive Lyrica 50 mg capsule RxNorm: 280112 Take 1 Capsule(s) Oral QAM every morning 02/15/20 20 Inactive venlafaxine ER 75 mg capsule,extended release 24 hr RxNorm: 759037 Take 3 Capsule(s) Oral QD 06/12/19 22 Active polyethylene glycol 3350 17 gram/dose oral powder RxNorm: 437614 Take 17=1 capful Gram(s) Oral BID as needed mix with 4-8oz of liquid 06/12/19 22 Active Levemir FlexTouch U-100 Insulin 100 unit/mL (3 mL) subcutaneous pen RxNorm: 584284 Inject 80 Unit(s) Subcutaneous BID 07/14/19 23 023 Inactive loperamide 2 mg capsule RxNorm: 631206 Take 1 Capsule(s) Oral QID as needed 06/12/19 22 Active Novolog Flexpen U-100 Insulin aspart 100 unit/mL (3 mL) subcutaneous RxNorm: 3141040 Insert 30 Unit(s) Subcutaneous TID with meals [...] Codes Status Date Referral: [facility] WPtel: [phone] [id number] [place] Referral Records Received 09/21/2022 Referral: [facility] WPtel: [address] [id number] [place] Referral Completed 05/28/2021 Referral: General Cardiology [...] Sister Jyotsna involved in his care cell# [phone] Guardian: Don (tapan met in person 09/01/21), now has Lexii (same group as don)Lab Schedule: * 10/06/2022
--- OUTSIDE RECORDS SUMMARY | 2022-11-10 00:35 | XMS_ITS | CCD ---
Author Name Tapan Shirley PA-C Address [address] [address] [place] [address] Phone Organization [facility] Phone Care Team Providers Care Senior Energy Market Coordinator Name Role Phone Tapan Shirley PA-C Primary Care Provider Unavailabl e Tapan Shirley PA-C Chronic Care Management Unavaila ble Summary Purpose DataExchange Insurance Providers Payer name Policy type / Coverage type Covered democrat ID Effective Begin Date Effective End Date Medicare [place] Medicare Part B [id number] Unknown Unknown Medicaid [place] Medicare Part B [id number] Unknown Unknown Family history Sister Brittany Suggs [...] Detention 09/03/19 [address]: 1611119 Non-Smoker / No History of Smoking 09/02/[address]: [id number] No Alcohol Consum ption 09/02/2020 Allergies, Adverse Reactions, Alerts Substance Reaction Codes Entered Date Inactivated Date Status LISINOPRIL RxNorm: 06635 02/12/2020 No Inactive Da te Active Metformin [...] 05/01/2022 Active Coronary artery disease invo lving [place] [...] Instructions gatifloxacin 0.5 % eye drops RxNorm: 805250 Instill 1 Drop(s) as directed TID Instill 1 drop in to affected eye(s) starting 1 day prior to surgery and continue until gone (do not exceed 4 weeks). 07/13/19 23 023 Inactive carvedilol 25 mg tablet RxNorm: 552068 2 Tablet(s) Oral BID 07/13/19 23 023 Inactive Humulin R Regular U-100 Insulin 100 unit/mL injection solution RxNorm: 883253 85 Unit(s) Injection TID 07/13/19 23 023 Inactive ketorolac 0.5 % eye drops RxNorm: 845240 Instill 1 Drop(s) as directed QID Instill 1 drop into affected eye(s) 4 times daily starting 1 day prior to surgery and continue until gone (do not exceed 4 weeks). 07/13/19 23 023 Inactive Diflucan 150 mg tablet RxNorm: 215059 Take 1 Tablet(s) Oral QD repeat on day 3 and 6 06/30/19 23 023 Inactive Accu-Chek Guide test strips RxNorm: Use 1 Test Strip QID Use 1 test strip to monitor blood glucose 4 times daily and as needed. Dx:E11.42. 06/23/19 23 023 Inactive ok to substitute with any covered alternative test strip dextromethorphan-gu aifenesin 10 mg-100 mg/5 mL oral liquid RxNorm: 848571 Take 10 Milliliter(s) Oral every 4 hours as needed for cough 06/19/19 23 023 Inactive dextromethorphan-gu aifenesin 10 mg-100 mg/5 mL oral liquid RxNorm: 533869 Take 10 Milliliter(s) Oral every 4 hours as needed for cough 06/19/19 23 023 Inactive Lyrica 150 mg capsule RxNorm: 139920 Take 1 Capsule(s) Oral QHS every night at bedtime 06/18/19 23 023 Inactive d/c 100mg dose aripiprazole 15 mg tablet RxNorm: 361773 1/2 TAB (7.5MG) ORALLY DAILY (DX:MAJOR DEPRESSIVE DISORDER) 06/05/19 23 023 Inactive pregabalin 100 mg capsule RxNorm: 859282 1 Capsule(s) Oral QAM every morning 06/02/19 23 023 Inactive Banophen 50 mg capsule RxNorm: 6896287 Take 1 Capsule(s) Oral Q6H every 6 hours as needed 05/19/19 23 No Stop Date Active Novolog Flexpen U-100 Insulin aspart 100 unit/mL (3 mL) subcutaneous RxNorm: 5025493 Inject 10 Unit(s) Subcutaneous QHS every night at bedtime with nighttime snack 04/08/20 22 022 Inactive Novolog Flexpen U-100 Insulin aspart 100 unit/mL (3 mL) subcutaneous RxNorm: 0478526 Inject 42 Unit(s) Subcutaneous TID in addition to sliding scale 04/08/20 022 Inactive d/c 36u albuterol sulfate HFA 90 mcg/actuation aerosol inhaler RxNorm: 8989138 Take 2 Puff(s) Inhalation Q4H every four hours as needed as needed for SOB, cough, or wheezing 04/07/20 030 Active Banophen 50 mg capsule RxNorm: 5457755 Take 1 Capsule(s) Oral Q6H every 6 hours as needed 04/06/20 023 Inactive diphenhydramine 50 mg tablet RxNorm: 7465935 Take 1 Tablet(s) Oral Q6H every 6 hours as needed 04/06/20 022 Inactive diphenhydramine 50 mg tablet RxNorm: 8768464 1 Tablet(s) Oral Q6H every 6 hours as needed 04/06/20 022 Inactive Abilify 15 mg tablet RxNorm: 138179 1/2 Tablet(s) Oral QD 03/10/20 023 Inactive Shingrix (PF) 50 mcg/0.5 mL intramuscular suspension, kit RxNorm: 7858471 Administer 1/2 Milliliter(s) Intramuscular QD one time shingrix step 2 ( step 1 given 11/04/21) WITH needle - Nursing please administer upon arrival and once administered post a bridge message with date of administration, 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, expiration date, and lot# so we can update [facility] 02/18/20 22 022 Inactive dispense with needle Shingrix (PF) 50 mcg/0.5 mL intramuscular suspension, kit RxNorm: 9015174 Administer 1/2 Milliliter(s) Intramuscular QD one time shingrix step 2 ( step 1 given 11/04/21) WITH needle - Nursing please administer upon arrival and once administered post a bridge message with date of administration, 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, expiration date, and lot# so we can update [facility]IC 02/18/20 22 022 Inactive dispense with needle acetaminophen 500 mg tablet RxNorm: 649723 Take 1 Tablet(s) Oral TID 01/08/20 22 023 Active d/c PRN order polyethylene glycol 3350 17 gram/dose oral powder RxNorm: 691191 Take 17=1 capful Gram(s) Oral QD mix with 4-8oz of liquid 01/08/20 023 Active take this in addition to BID prn order Lyrica 100 mg capsule RxNorm: 223117 Take 1 Capsule(s) Oral QAM every morning 01/08/20 22 022 Inactive d/c 50mg dose Lyrica 150 mg capsule RxNorm: 290067 Take 1 Capsule(s) Oral QHS every night at bedtime 01/08/20 22 023 Inactive d/c 100mg dose Abilify 5 mg tablet RxNorm: 116463 Take 1 Tablet(s) Oral QD take 1 tab po QD #30 refill 5 dx: MDD 12/12/19 22 022 Inactive Abilify 5 mg tablet RxNorm: 218790 Take 1 Tablet(s) Oral QD take 1 tab po QD #30 refill 5 dx: MDD 12/12/19 22 022 Inactive chlorthalidone 25 mg tablet RxNorm: 133133 Take 1 Tablet(s) Oral QAM every morning 12/10/19 22 023 Active Novolog Flexpen U-100 Insulin aspart 100 unit/mL (3 mL) subcutaneous RxNorm: 3277758 Inject 42 Unit(s) Subcutaneous TID in addition to sliding scale 12/10/19 22 Inactive d/c 36u pregabalin 50 mg capsule RxNorm: 229728 Take 1 Capsule(s) Oral QAM every morning 11/12/19 22 022 Inactive tetanus-diphtheria toxoids-Td 2 Lf unit-2 Lf unit/0.5 mL IM suspension RxNorm: 139 Take 0.5 Miscellaneous Intramuscular 11/12/19 22 022 Inactive need tdap - nursing to administer upon arrival pregabalin 50 mg capsule RxNorm: 600871 Take 1 Capsule(s) Oral QAM every morning 10/16/19 22 022 Inactive pregabalin 50 mg capsule RxNorm: 534121 Take 1 Capsule(s) Oral QAM every morning 10/16/19 22 022 Inactive pregabalin 50 mg capsule RxNorm: 363124 1 Capsule(s) Oral QAM every morning 10/15/19 22 Inactive Shingrix (PF) 50 mcg/0.5 mL intramuscular suspension, kit RxNorm: 9556414 Administer 1/2 Milliliter(s) Intramuscular one time Nursing please administer upon arrival and once administered post a bridge message with date of administration, 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, expiration date, and lot# so we can update MIIC. 10/09/19 22 022 Inactive shingrix step 1 Shingrix (PF) 50 mcg/0.5 mL intramuscular suspension, kit RxNorm: 4872572 Administer 1/2 Milliliter(s) Intramuscular one time Nursing please administer upon arrival and once administered post a bridge message with date of administration, 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, expiration date, and lot# so we can update [facility]IC. 10/09/19 22 022 Inactive shingrix step 1 cholecalciferol (vitamin D3) 1,250 mcg (50,000 unit) capsule RxNorm: 525641 Take 1 Capsule(s) Oral QW once a [...] aspart 100 unit/mL (3 mL) subcutaneous RxNorm: 0000246 Inject 10 Unit(s) Subcutaneous QHS every night at bedtime with nighttime snack 10/08/19 22 022 Inactive Shingrix (PF) 50 mcg/0.5 mL intramuscular suspension, kit RxNorm: 4628081 ADMINISTER 2-DOSE SERIES PER CDC GUIDELINES 10/08/19 22 022 Active Shingrix (PF) 50 mcg/0.5 mL intramuscular suspension, kit RxNorm: 5555405 ADMINISTER 2-DOSE SERIES PER CDC GUIDELINES 10/08/19 22 Inactive Novolog Flexpen U-100 Insulin aspart 100 unit/mL (3 mL) subcutaneous RxNorm: 5665766 Inject 36 Unit(s) Subcutaneous TID in addition to sliding scale 10/08/19 22 Inactive Novofine Autocover 30 gauge x 1/3 needle RxNorm: Use 1 Miscellaneous UD as directed Use 1 needle as directed to administer insulin 5 times a day Dx:E11.42. 10/03/19 22 Inactive ok to substitute with any covered alternative pen needle benzoyl peroxide 10 % topical cleanser RxNorm: 363046 Apply 1 Application Topical QD apply to face, wash rinse and dry once daily (may change to QOD if drying) 08/19/19 022 Inactive (%covered by insurance) #60ml refill 11 dx: acne benzoyl peroxide 10 % topical cleanser RxNorm: 592343 Apply 1 Application Topical QD apply to face, wash rinse and dry once daily (may change to QOD if drying) 08/19/19 22 022 Inactive (%covered by insurance) #60ml refill 11 dx: acne benzoyl peroxide 10 % topical cleanser RxNorm: 092741 Apply 1 Application Topical QD apply to face, wash rinse and dry once daily (may change to QOD if drying) 08/19/19 22 022 Inactive (%covered by insurance) #60ml refill 11 dx: acne Lyrica 50 mg capsule RxNorm: 411281 Take 1 Capsule(s) Oral QAM every morning Take 1 capsule by mouth once daily 08/19/19 22 022 Inactive benzoyl peroxide 10 % topical cleanser RxNorm: 025949 Apply 1 Application Topical QD apply to face, wash rinse and dry once daily (may change to QOD if drying) 08/19/19 22 022 Inactive (%covered by insurance) #60ml refill 11 dx: acne Lyrica 100 mg capsule RxNorm: 187975 Take 1 Capsule(s) Oral QHS every night at bedtime Take 1 capsule by mouth once daily at bedtime 08/19/19 22 022 Inactive Lyrica 100 mg capsule RxNorm: 343487 Take 1 Capsule(s) Oral QHS every night at bedtime Take 1 capsule by mouth once daily at bedtime 08/16/19 22 022 Inactive Lyrica 50 mg capsule RxNorm: 140272 Take 1 Capsule(s) Oral QAM every morning Take 1 capsule by mouth once daily 08/16/19 22 022 Inactive Levemir FlexTouch U-100 Insulin 100 unit/mL (3 mL) subcutaneous pen RxNorm: 295983 Inject 86 Unit(s) Subcutaneous BID 08/05/19 22 022 Inactive d/c 83units BID Lyrica 100 mg capsule RxNorm: 960566 Take 1 Capsule(s) Oral QHS every night at bedtime Take 1 capsule by mouth once daily at bedtime 07/14/19 22 022 Inactive Lyrica 50 mg capsule RxNorm: 218229 Take 1 Capsule(s) Oral QAM every morning Take 1 capsule by mouth once daily 07/14/19 22 022 Inactive Levemir FlexTouch U-100 Insulin 100 unit/mL (3 mL) subcutaneous pen RxNorm: 196550 Inject 83 Unit(s) Subcutaneous BID 07/08/19 22 [...] 30 mg tablet,extended release 24 hr RxNorm: 457538 Take 1 Tablet(s) Oral QD 05/05/20 No Stop Date Active hydralazine 50 mg tablet RxNorm: 657309 Take 1 Tablet(s) Oral QID 05/05/20 21 022 Inactive venlafaxine ER 225 mg tablet,extended release 24 hr RxNorm: 781154 Take 1 Tablet(s) Oral QD 05/05/20 21 021 Inactive venlafaxine ER 225 mg tablet,extended release 24 hr RxNorm: 499873 Take 1 Tablet(s) Oral QD 05/05/20 21 022 Inactive hydralazine 50 mg tablet RxNorm: 703967 Take 1 Tablet(s) Oral QID 05/05/20 21 021 Inactive aspirin 81 mg tablet,delayed release RxNorm: 473253 Take 1 Tablet(s) Oral QD 03/31/20 21 022 Inactive Zetia 10 mg tablet RxNorm: 313185 Take 1 Tablet(s) Oral QD 03/31/20 21 022 Inactive Vitamin D2 1,250 mcg (50,000 unit) capsule RxNorm: 0016143 Take 1 Capsule(s) Oral QW once a week x 12 weeks 03/31/20 022 Inactive Vitamin D2 1,250 mcg (50,000 unit) capsule RxNorm: 0024537 Take 1 Capsule(s) Oral QW once a week 03/31/20 Inactive Zetia 10 mg tablet RxNorm: 468851 Take 1 Tablet(s) Oral QD 03/31/20 Inactive hydralazine 25 mg tablet RxNorm: 212615 Take 1 Tablet(s) Oral QID 03/31/20 021 Inactive hydralazine 25 mg tablet RxNorm: 352819 Take 1 Tablet(s) Oral QID 03/31/20 021 Inactive hydralazine 10 mg tablet RxNorm: 812882 Take 1 Tablet(s) Oral QID 03/03/20 021 Inactive cephalexin 500 mg tablet RxNorm: 191327 Take 1 Tablet(s) Oral QID 02/27/20 021 Inactive cephalexin 500 mg tablet RxNorm: 289790 Take 1 Tablet(s) Oral QID 02/27/20 021 Inactive lisinopril 40 mg tablet RxNorm: 015671 Take 1 Tablet(s) Oral QD 02/11/20 023 Inactive Eliquis 5 mg tablet RxNorm: 7005040 Take 1 Tablet(s) Oral BID 01/05/20 022 Inactive Eliquis 5 mg tablet RxNorm: 7366058 Take 2 Tablet(s) Oral QD 01/01/20 021 Inactive Lyrica 50 mg capsule RxNorm: 643705 Take 1 Capsule(s) Oral QAM every morning 12/24/19 21 021 Inactive Lyrica 100 mg capsule RxNorm: 572214 Take 1 Capsule(s) Oral QHS every night at bedtime 12/24/19 21 021 Inactive clotrimazole 1 % topical cream RxNorm: 849932 Apply to right foot and toes Topical BID 12/04/19 21 023 Inactive metoprolol succinate ER 200 mg tablet,extended release 24 hr RxNorm: 157082 Take 1 Tablet(s) Oral QD 12/04/19 21 023 Inactive ciprofloxacin 500 mg tablet RxNorm: 843193 Take 1 Tablet(s) Oral QD 11/30/19 21 021 Inactive DX ofloxacin otic drops Accu-Chek Guide test strips RxNorm: USE 1 TO CHECK GLUCOSE 4 TIMES DAILY AND NEEDED 11/15/19 21 023 Inactive Blood Glucose Test strips RxNorm: Use 1 Test Strip QID at PRN 11/05/19 21 023 Inactive E11.42 lisinopril 30 mg tablet RxNorm: 526248 Take 1 Tablet(s) Oral QD 10/30/19 021 Inactive lisinopril 20 mg tablet RxNorm: 974085 Take 1 Tablet(s) Oral QD 10/23/19 021 Inactive lisinopril 20 mg tablet RxNorm: 577541 Take 1 Tablet(s) Oral QD 10/23/19 021 Inactive lisinopril 10 mg tablet RxNorm: 493306 Take 1 Tablet(s) Oral QD 10/02/19 021 Inactive icosapent ethyl 1 gram capsule RxNorm: 5069613 Take 2 Capsule(s) (2 gm) Oral BID with meals 09/12/19 022 Inactive Okay to dispense one 2gm tab if you have that available. icosapent ethyl 1 gram capsule RxNorm: 8381072 Take 2 Capsule(s) Oral BID 09/12/19 021 Inactive Okay to dispense one 2gm tab if you have that available. amlodipine 10 mg tablet RxNorm: 560865 Take 1 Tablet(s) Oral QD 09/04/19 022 Inactive aspirin 81 mg tablet,delayed release RxNorm: 696486 Take 1 Tablet(s) Oral QD 09/04/19 21 021 Inactive Levemir FlexTouch U-100 Insulin 100 unit/mL (3 mL) subcutaneous pen RxNorm: 866895 Inject 150 Unit(s) Subcutaneous BID 09/04/19 21 022 Inactive venlafaxine ER 150 mg tablet,extended release 24 hr RxNorm: 550096 Take 1 Tablet(s) Oral QD 04 021 Inactive clotrimazole-betame thasone 1 %-0.05 % topical cream RxNorm: 379934 Apply to rash on red area on left abdomen/chest Topical BID 08/10/19 21 021 Inactive amlodipine 5 mg tablet RxNorm: 287544 Take 1 Tablet(s) Oral QD 07/31/19 21 Inactive cephalexin 500 mg tablet RxNorm: 146899 Take 1 Tablet(s) Oral BID BID - Twice Daily 07/31/19 021 Inactive Start 08/01/20 pantoprazole 40 mg tablet,delayed release RxNorm: 601111 Take 1 Tablet(s) Oral QAM every morning 07/08/19 022 Inactive senna 8.6 mg tablet RxNorm: 675658 Take 1 Tablet(s) Oral QD 07/08/19 022 Inactive pravastatin 80 mg tablet RxNorm: 925394 Take 1 Tablet(s) Oral QHS every night at bedtime 07/08/19 022 Inactive carbamazepine 200 mg tablet RxNorm: 419643 Take 1 Tablet(s) Oral BID 07/08/19 022 Inactive torsemide 20 mg tablet RxNorm: 312500 Take 1 Tablet(s) Oral QD 07/08/19 023 Inactive clopidogrel 75 mg tablet RxNorm: 215089 Take 1 Tablet(s) Oral QD 07/08/19 021 Inactive Blood Glucose Test strips RxNorm: Use 1 Test Strip QID at PRN 07/08/19 021 Inactive E11.42 Novolog Flexpen U-100 Insulin aspart 100 unit/mL (3 mL) subcutaneous RxNorm: 3001608 Administer per sliding scale Milliliter(s) Subcutaneous TID 151-200: 10 u; 201-250: 20 u; 251-300: 30 u; 301-350: 40 u; 351-400: 50 u. 07/08/19 21 022 Inactive lisinopril 5 mg tablet RxNorm: 945036 Take 1 Tablet(s) Oral QD 07/08/19 021 Inactive Novolog Flexpen U-100 Insulin aspart 100 unit/mL (3 mL) subcutaneous RxNorm: 1645730 Inject 85 Unit(s) Subcutaneous TID 07/08/19 022 Inactive clotrimazole 1 % topical cream RxNorm: 840761 Apply to bilateral groin areas Topical BID 07/08/19 022 Inactive metoprolol succinate ER 200 mg tablet,extended release 24 hr RxNorm: 583719 Take 1 Tablet(s) Oral QD 07/08/19 021 Inactive Vitamin D3 25 mcg (1,000 unit) tablet RxNorm: 382206 Take 1 Tablet(s) Oral QD 07/08/19 021 Inactive isosorbide dinitrate 30 mg tablet RxNorm: 219840 Take 1 Tablet(s) Oral QD 07/08/19 021 Inactive Levemir FlexTouch U-100 Insulin 100 unit/mL (3 mL) subcutaneous pen RxNorm: 647074 Inject 140 Unit(s) Subcutaneous BID 07/08/19 021 Inactive venlafaxine 75 mg tablet RxNorm: 226531 Take 1 Tablet(s) Oral QD 07/08/19 021 Inactive acetaminophen 500 mg tablet RxNorm: 048169 Take 1 Tablet(s) Oral TID as needed for headache 06/18/19 021 Inactive acetaminophen 500 mg tablet RxNorm: 389463 Take 1 Tablet(s) Oral TID as needed for headache 06/18/19 021 Inactive Lyrica 100 mg capsule RxNorm: 622180 Take 1 Capsule(s) Oral QHS every night at bedtime 06/11/19 021 Inactive Lyrica 50 mg capsule RxNorm: 561562 Take 1 Capsule(s) Oral QAM every morning 06/10/19 021 Inactive hydrocortisone 2.5 % topical cream RxNorm: 816705 Apply to bilateral groin creases Topical BID 05/15/20 20 021 Inactive clotrimazole 1 % topical cream RxNorm: 990793 Apply to bilateral groin areas Topical BID 05/15/20 20 01/12/2 021 Inactive Lyrica 50 mg capsule RxNorm: 220439 Take 1 Capsule(s) Oral QAM every morning 05/14/20 20 Inactive Lyrica 100 mg capsule RxNorm: 421333 Take 1 Capsule(s) Oral QHS every night [...] Inactive Nystop 100,000 unit/gram topical powder RxNorm: 205732 Apply to abd folds, under breasts and L side of groin Topical BID x 14 days, then BID PRN 04/08/20 20 021 Inactive dx: yeast dermatitis Lyrica 100 mg capsule RxNorm: 872484 Take 1 Capsule(s) Oral QHS every night at bedtime 03/13/20 20 Inactive Lyrica 50 mg capsule RxNorm: 959576 Take 1 Capsule(s) Oral QAM every morning 03/13/20 20 Inactive ketoconazole 2 % shampoo RxNorm: 647687 Apply Topical two times a week with showers 03/11/20 20 Inactive cholecalciferol (vitamin D3) 50 mcg (2,000 unit) tablet RxNorm: 284614 Take 1 Tablet(s) Oral QD 03/11/20 20 Inactive Zetia 10 mg tablet RxNorm: 282438 Take 1 Tablet(s) Oral QD 03/07/20 20 021 Inactive Zetia 10 mg tablet RxNorm: 922317 Take 1 Tablet(s) Oral QD 03/07/20 20 Inactive Lyrica 50 mg capsule RxNorm: 434981 Take 1 Capsule(s) Oral QAM every morning 02/15/20 20 Inactive Lyrica 100 mg capsule RxNorm: 325733 Take 1 Capsule(s) Oral QHS every night at bedtime 02/15/20 20 Inactive Lyrica 100 mg capsule RxNorm: 077353 Take 1 Capsule(s) Oral QHS every night at bedtime 02/15/20 20 Inactive Lyrica 50 mg capsule RxNorm: 378816 Take 1 Capsule(s) Oral QAM every morning 02/15/20 20 Inactive venlafaxine ER 75 mg capsule,extended release 24 hr RxNorm: 273508 Take 3 Capsule(s) Oral QD 06/12/19 22 Active polyethylene glycol 3350 17 gram/dose oral powder RxNorm: 299685 Take 17=1 capful Gram(s) Oral BID as needed mix with 4-8oz of liquid 06/12/19 22 Active loperamide 2 mg capsule RxNorm: 370947 Take 1 Capsule(s) Oral QID as needed 06/12/19 22 Active Levemir FlexTouch U-100 Insulin 100 unit/mL (3 mL) subcutaneous pen RxNorm: 713525 Inject 80 Unit(s) Subcutaneous BID 07/14/19 23 023 Inactive Novolog Flexpen U-100 Insulin aspart 100 unit/mL (3 mL) subcutaneous RxNorm: 9124893 Insert 30 Unit(s) Subcutaneous TID with meals [...] Encounter Performer Location Location Address Codes Date ([address]34) Home or Residence Visit Est Pt - [...] 2 diabetes mellitus[ICD10: E11.22] Tapan Shirley [address] [place] [address] [place] [address] CPT-4: 55972 07/14/2022 Plan of Care Planned Activity Notes Codes Status Date Referral: [facility] [place]: [address], [address] [id number] [place] Referral Records Received 09/21/2022 Patient Education: Patient M edication Summary Completed 07/14/2022 Patient Education: Influenza Vaccine Completed 07/14/2022 Appointment: Tapan Shirley [place]: [address] [facility] [address] [id number]/U 02/10/2022 Referral: [facility] [place] [facility] CARLO W[place]: [address] [id number] [place] Referral Completed 05/28/2021 Referral: General Cardiology [...] Sister Jyotsna involved in his care cell# [phone] Guardian: Don (tapan met in person 09/01/21), now has Lexii (same group as don)Lab Schedule: Mar-* 10/06/2022 Diabetes BGs improving, continue to follow closely with printing table worker and continue humulin 85u TID (hold morning dose of humulin 07/15/22 due to surgery and patient to be NPO). Hypertension Some BPs on the higher end (180/80) but patient is asymptomatic. Should f/u with group program manager to further discuss. Continue amlodipine 10mg, carvedilol 25mg, and lisinopril 40mg. Candidiasis, intertrigo Patient needs assistance with washing and dry skin folds daily to prevent worsening yeast infection as well as preventing any skin breakdown. Order provided today for staff to assist. Continue with nystatin powder BID. Pre-op evaluation PATIENT IS CLEARED FOR LEFT EYE CATARACT SURGERY. . 07/14/2022
--- OUTSIDE RECORDS SUMMARY | 2022-11-10 00:35 | XMS_ITS | CCD ---
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 Name Role Phone Tapan Shirley PA-C Primary Care Provider Unavailabl e Tapan Shirley PA-C Chronic Care Management Unavaila ble Summary Purpose DataExchange Insurance Providers Payer name Policy type / Coverage type Covered republican ID Effective Begin Date Effective End Date [place] [id number] Unknown Unknown [place] B [id number] Unknown Unknown Family history Sister Brittany Suggs [...] Unknown Long-Term 09/03/[address]: 8017226 Non-Smoker / No History of Smoking 09/02/[address]: 066907214 No Alcohol Consum ption 09/02/2020 Allergies, Adverse Reactions, Alerts Substance Reaction Codes Entered Date Inactivated Date Status LISINOPRIL RxNorm: 21405 02/12/2020 No Inactive Da te Active Metformin [...] 05/01/2022 Active Coronary artery disease invo lving [place] [...] immunization ICD-10: Z23 ICD-9: V03.89 02/10/2022 [facility] (current) use of insulin ICD-10: Z79.4 02/10 [...] Fill Instructions Diflucan 150 mg tablet RxNorm: 062949 Take 1 Tablet(s) Oral QD repeat on day 3 and 6 06/30/19 023 Inactive Accu-Chek Guide test strips RxNorm: Use 1 Test Strip QID Use 1 test strip to monitor blood glucose 4 times daily and as needed. Dx:E11.42. 06/23/19 023 Inactive ok to substitute with any covered alternative test strip dextromethorphan-gu aifenesin 10 mg-100 mg/5 mL oral liquid RxNorm: 746276 Take 10 Milliliter(s) Oral every 4 hours as needed for cough 06/19/19 23 023 Inactive dextromethorphan-gu aifenesin 10 mg-100 mg/5 mL oral liquid RxNorm: 108701 Take 10 Milliliter(s) Oral every 4 hours as needed for cough 06/19/19 23 023 Inactive Lyrica 150 mg capsule RxNorm: 349275 Take 1 Capsule(s) Oral QHS every night at bedtime 06/18/19 023 Inactive d/c 100mg dose aripiprazole 15 mg tablet RxNorm: 735292 1/2 TAB (7.5MG) ORALLY DAILY (DX:MAJOR DEPRESSIVE DISORDER) 06/05/19 023 Inactive pregabalin 100 mg capsule RxNorm: 440147 1 Capsule(s) Oral QAM every morning 06/02/19 023 Inactive Banophen 50 mg capsule RxNorm: 1108503 Take 1 Capsule(s) Oral Q6H every 6 hours as needed 05/19/19 No Stop Date Active Novolog Flexpen U-100 Insulin aspart 100 unit/mL (3 mL) subcutaneous RxNorm: 0422399 Inject 10 Unit(s) Subcutaneous QHS every night at bedtime with nighttime snack 04/08/20 022 Inactive Novolog Flexpen U-100 Insulin aspart 100 unit/mL (3 mL) subcutaneous RxNorm: 7299431 Inject 42 Unit(s) Subcutaneous TID in addition to sliding scale 04/08/20 022 Inactive d/c 36u albuterol sulfate HFA 90 mcg/actuation aerosol inhaler RxNorm: 8686687 Take 2 Puff(s) Inhalation Q4H every four hours as needed as needed for SOB, cough, or wheezing 04/07/20 22 030 Active Banophen 50 mg capsule RxNorm: 4400412 Take 1 Capsule(s) Oral Q6H every 6 hours as needed 04/06/20 023 Inactive diphenhydramine 50 mg tablet RxNorm: 3005735 Take 1 Tablet(s) Oral Q6H every 6 hours as needed 04/06/20 22 022 Inactive diphenhydramine 50 mg tablet RxNorm: 2173411 1 Tablet(s) Oral Q6H every 6 hours as needed 04/06/20 22 022 Inactive Abilify 15 mg tablet RxNorm: 513391 1/2 Tablet(s) Oral QD 03/10/20 22 023 Inactive Shingrix (PF) 50 mcg/0.5 mL intramuscular suspension, kit RxNorm: 1434794 Administer 1/2 Milliliter(s) Intramuscular QD one time shingrix step 2 ( step 1 given 11/04/21) WITH needle - Nursing please administer upon arrival and once administered post a bridge message with date of administration, pet care assistant, expiration date, and lot# so we can update [facility] 02/18/20 22 022 Inactive dispense with needle Shingrix (PF) 50 mcg/0.5 mL intramuscular suspension, kit RxNorm: 1091677 Administer 1/2 Milliliter(s) Intramuscular QD one time shingrix step 2 ( step 1 given 11/04/21) WITH needle - Nursing please administer upon arrival and once administered post a bridge message with date of administration, pet care assistant, expiration date, and lot# so we can update [facility] 02/18/20 22 022 Inactive dispense with needle acetaminophen 500 mg tablet RxNorm: 562470 Take 1 Tablet(s) Oral TID 01/08/20 22 023 Active d/c PRN order polyethylene glycol 3350 17 gram/dose oral powder RxNorm: 352644 Take 17=1 capful Gram(s) Oral QD mix with 4-8oz of liquid 01/08/20 22 023 Active take this in addition to BID prn order Lyrica 100 mg capsule RxNorm: 035016 Take 1 Capsule(s) Oral QAM every morning 01/08/20 22 022 Inactive d/c 50mg dose Lyrica 150 mg capsule RxNorm: 890506 Take 1 Capsule(s) Oral QHS every night at bedtime 01/08/20 22 023 Inactive d/c 100mg dose Abilify 5 mg tablet RxNorm: 961991 Take 1 Tablet(s) Oral QD take 1 tab po QD #30 refill 5 dx: MDD 12/12/19 22 022 Inactive Abilify 5 mg tablet RxNorm: 720780 Take 1 Tablet(s) Oral QD take 1 tab po QD #30 refill 5 dx: MDD 12/12/19 22 022 Inactive chlorthalidone 25 mg tablet RxNorm: 961945 Take 1 Tablet(s) Oral QAM every morning 12/10/19 22 023 Active Novolog Flexpen U-100 Insulin aspart 100 unit/mL (3 mL) subcutaneous RxNorm: 3206415 Inject 42 Unit(s) Subcutaneous TID in addition to sliding scale 12/10/19 22 022 Inactive d/c 36u pregabalin 50 mg capsule RxNorm: 245319 Take 1 Capsule(s) Oral QAM every morning 11/12/19 22 Inactive tetanus-diphtheria toxoids-Td 2 Lf unit-2 Lf unit/0.5 mL IM suspension RxNorm: 139 Take 0.5 Miscellaneous Intramuscular 11/12/19 22 022 Inactive need tdap - nursing to administer upon arrival pregabalin 50 mg capsule RxNorm: 938405 Take 1 Capsule(s) Oral QAM every morning 10/16/19 22 022 Inactive pregabalin 50 mg capsule RxNorm: 486801 Take 1 Capsule(s) Oral QAM every morning 10/16/19 22 022 Inactive pregabalin 50 mg capsule RxNorm: 012715 1 Capsule(s) Oral QAM every morning 10/15/19 22 022 Inactive Shingrix (PF) 50 mcg/0.5 mL intramuscular suspension, kit RxNorm: 4781989 Administer 1/2 Milliliter(s) Intramuscular one time Nursing please administer upon arrival and once administered post a bridge message with date of administration, pet care assistant, expiration date, and lot# so we can update [facility]. 10/09/19 22 022 Inactive shingrix step 1 Shingrix (PF) 50 mcg/0.5 mL intramuscular suspension, kit RxNorm: 3264066 Administer 1/2 Milliliter(s) Intramuscular one time Nursing please administer upon arrival and once administered post a bridge message with date of administration, pet care assistant, expiration date, and lot# so we can update [facility]. 10/09/19 22 022 Inactive shingrix step 1 cholecalciferol (vitamin D3) 1,250 mcg (50,000 unit) capsule RxNorm: 650162 Take 1 Capsule(s) Oral QW once a [...] aspart 100 unit/mL (3 mL) subcutaneous RxNorm: 3387800 Inject 10 Unit(s) Subcutaneous QHS every night at bedtime with nighttime snack 10/08/19 22 Inactive Shingrix (PF) 50 mcg/0.5 mL intramuscular suspension, kit RxNorm: 9650259 ADMINISTER 2-DOSE SERIES PER CDC GUIDELINES 10/08/19 22 Active Shingrix (PF) 50 mcg/0.5 mL intramuscular suspension, kit RxNorm: 5193906 ADMINISTER 2-DOSE SERIES PER CDC GUIDELINES 10/08/19 22 Inactive Novolog Flexpen U-100 Insulin aspart 100 unit/mL (3 mL) subcutaneous RxNorm: 2984488 Inject 36 Unit(s) Subcutaneous TID in addition to sliding scale 10/08/19 22 Inactive Novofine Autocover 30 gauge x 1/3 needle RxNorm: Use 1 Miscellaneous UD as directed Use 1 needle as directed to administer insulin 5 times a day Dx:E11.42. 10/03/19 22 Inactive ok to substitute with any covered alternative pen needle benzoyl peroxide 10 % topical cleanser RxNorm: 120743 Apply 1 Application Topical QD apply to face, wash rinse and dry once daily (may change to QOD if drying) 08/19/19 22 022 Inactive (%covered by insurance) #60ml refill 11 dx: acne benzoyl peroxide 10 % topical cleanser RxNorm: 216172 Apply 1 Application Topical QD apply to face, wash rinse and dry once daily (may change to QOD if drying) 08/19/19 22 022 Inactive (%covered by insurance) #60ml refill 11 dx: acne benzoyl peroxide 10 % topical cleanser RxNorm: 263519 Apply 1 Application Topical QD apply to face, wash rinse and dry once daily (may change to QOD if drying) 08/19/19 22 022 Inactive (%covered by insurance) #60ml refill 11 dx: acne Lyrica 50 mg capsule RxNorm: 124099 Take 1 Capsule(s) Oral QAM every morning Take 1 capsule by mouth once daily 08/19/19 22 022 Inactive benzoyl peroxide 10 % topical cleanser RxNorm: 833414 Apply 1 Application Topical QD apply to face, wash rinse and dry once daily (may change to QOD if drying) 08/19/19 22 022 Inactive (%covered by insurance) #60ml refill 11 dx: acne Lyrica 100 mg capsule RxNorm: 549111 Take 1 Capsule(s) Oral QHS every night at bedtime Take 1 capsule by mouth once daily at bedtime 08/19/19 22 022 Inactive Lyrica 100 mg capsule RxNorm: 630998 Take 1 Capsule(s) Oral QHS every night at bedtime Take 1 capsule by mouth once daily at bedtime 08/16/19 22 022 Inactive Lyrica 50 mg capsule RxNorm: 139319 Take 1 Capsule(s) Oral QAM every morning Take 1 capsule by mouth once daily 08/16/19 22 022 Inactive Levemir FlexTouch U-100 Insulin 100 unit/mL (3 mL) subcutaneous pen RxNorm: 471256 Inject 86 Unit(s) Subcutaneous BID 08/05/19 22 022 Inactive d/c 83units BID Lyrica 100 mg capsule RxNorm: 807058 Take 1 Capsule(s) Oral QHS every night at bedtime Take 1 capsule by mouth once daily at bedtime 07/14/19 22 022 Inactive Lyrica 50 mg capsule RxNorm: 894267 Take 1 Capsule(s) Oral QAM every morning Take 1 capsule by mouth once daily 07/14/19 22 022 Inactive Levemir FlexTouch U-100 Insulin 100 unit/mL (3 mL) subcutaneous pen RxNorm: 180295 Inject 83 Unit(s) Subcutaneous BID 07/08/19 22 [...] 30 mg tablet,extended release 24 hr RxNorm: 850833 Take 1 Tablet(s) Oral QD 05/05/20 No Stop Date Active hydralazine 50 mg tablet RxNorm: 962707 Take 1 Tablet(s) Oral QID 05/05/20 21 022 Inactive venlafaxine ER 225 mg tablet,extended release 24 hr RxNorm: 700813 Take 1 Tablet(s) Oral QD 12 021 Inactive venlafaxine ER 225 mg tablet,extended release 24 hr RxNorm: 904107 Take 1 Tablet(s) Oral QD 05/05/20 022 Inactive hydralazine 50 mg tablet RxNorm: 168589 Take 1 Tablet(s) Oral QID 05/05/20 021 Inactive aspirin 81 mg tablet,delayed release RxNorm: 707575 Take 1 Tablet(s) Oral QD 03/31/20 022 Inactive Zetia 10 mg tablet RxNorm: 192731 Take 1 Tablet(s) Oral QD 03/31/20 Inactive Vitamin D2 1,250 mcg (50,000 unit) capsule RxNorm: 7078226 Take 1 Capsule(s) Oral QW once a week x 12 weeks 03/31/20 Inactive Vitamin D2 1,250 mcg (50,000 unit) capsule RxNorm: 8678484 Take 1 Capsule(s) Oral QW once a week 03/31/20 021 Inactive Zetia 10 mg tablet RxNorm: 927299 Take 1 Tablet(s) Oral QD 03/31/20 Inactive hydralazine 25 mg tablet RxNorm: 102411 Take 1 Tablet(s) Oral QID 03/31/20 021 Inactive hydralazine 25 mg tablet RxNorm: 106389 Take 1 Tablet(s) Oral QID 03/31/20 021 Inactive hydralazine 10 mg tablet RxNorm: 559028 Take 1 Tablet(s) Oral QID 03/03/20 021 Inactive cephalexin 500 mg tablet RxNorm: 685536 Take 1 Tablet(s) Oral QID 02/27/20 021 Inactive cephalexin 500 mg tablet RxNorm: 428668 Take 1 Tablet(s) Oral QID 02/27/20 021 Inactive lisinopril 40 mg tablet RxNorm: 248209 Take 1 Tablet(s) Oral QD 02/11/20 21 023 Inactive Eliquis 5 mg tablet RxNorm: 5006610 Take 1 Tablet(s) Oral BID 01/05/20 022 Inactive Eliquis 5 mg tablet RxNorm: 7559940 Take 2 Tablet(s) Oral QD 01/01/20 021 Inactive Lyrica 50 mg capsule RxNorm: 563692 Take 1 Capsule(s) Oral QAM every morning 12/24/19 021 Inactive Lyrica 100 mg capsule RxNorm: 861529 Take 1 Capsule(s) Oral QHS every night at bedtime 12/24/19 021 Inactive clotrimazole 1 % topical cream RxNorm: 939405 Apply to right foot and toes Topical BID 12/04/19 21 023 Inactive metoprolol succinate ER 200 mg tablet,extended release 24 hr RxNorm: 028446 Take 1 Tablet(s) Oral QD 12/04/19 023 Inactive ciprofloxacin 500 mg tablet RxNorm: 926004 Take 1 Tablet(s) Oral QD 11/30/19 021 Inactive DX ofloxacin otic drops Accu-Chek Guide test strips RxNorm: USE 1 TO CHECK GLUCOSE 4 TIMES DAILY AND NEEDED 11/15/19 21 023 Inactive Blood Glucose Test strips RxNorm: Use 1 Test Strip QID at PRN 11/05/19 21 023 Inactive E11.42 lisinopril 30 mg tablet RxNorm: 661529 Take 1 Tablet(s) Oral QD 10/30/19 021 Inactive lisinopril 20 mg tablet RxNorm: 456033 Take 1 Tablet(s) Oral QD 10/23/19 021 Inactive lisinopril 20 mg tablet RxNorm: 424106 Take 1 Tablet(s) Oral QD 10/23/19 021 Inactive lisinopril 10 mg tablet RxNorm: 619331 Take 1 Tablet(s) Oral QD 10/02/19 21 021 Inactive icosapent ethyl 1 gram capsule RxNorm: 7286272 Take 2 Capsule(s) (2 gm) Oral BID with meals 09/12/19 21 022 Inactive Okay to dispense one 2gm tab if you have that available. icosapent ethyl 1 gram capsule RxNorm: 8311732 Take 2 Capsule(s) Oral BID 09/12/19 21 021 Inactive Okay to dispense one 2gm tab if you have that available. amlodipine 10 mg tablet RxNorm: 082110 Take 1 Tablet(s) Oral QD 09/04/19 21 022 Inactive aspirin 81 mg tablet,delayed release RxNorm: 394097 Take 1 Tablet(s) Oral QD 09/04/19 21 021 Inactive Levemir FlexTouch U-100 Insulin 100 unit/mL (3 mL) subcutaneous pen RxNorm: 855600 Inject 150 Unit(s) Subcutaneous BID 09/04/19 Inactive venlafaxine ER 150 mg tablet,extended release 24 hr RxNorm: 207263 Take 1 Tablet(s) Oral QD 09/04/19 Inactive clotrimazole-betame thasone 1 %-0.05 % topical cream RxNorm: 636704 Apply to rash on red area on left abdomen/chest Topical BID 08/10/19 21 Inactive amlodipine 5 mg tablet RxNorm: 615325 Take 1 Tablet(s) Oral QD 07/31/19 Inactive cephalexin 500 mg tablet RxNorm: 039245 Take 1 Tablet(s) Oral BID BID - Twice Daily 07/31/19 021 Inactive Start 08/01/20 pantoprazole 40 mg tablet,delayed release RxNorm: 094505 Take 1 Tablet(s) Oral QAM every morning 07/08/19 022 Inactive senna 8.6 mg tablet RxNorm: 407578 Take 1 Tablet(s) Oral QD 07/08/19 022 Inactive pravastatin 80 mg tablet RxNorm: 505436 Take 1 Tablet(s) Oral QHS every night at bedtime 07/08/19 022 Inactive carbamazepine 200 mg tablet RxNorm: 925961 Take 1 Tablet(s) Oral BID 07/08/19 022 Inactive torsemide 20 mg tablet RxNorm: 289229 Take 1 Tablet(s) Oral QD 07/08/19 21 023 Inactive clopidogrel 75 mg tablet RxNorm: 622102 Take 1 Tablet(s) Oral QD 07/08/19 21 021 Inactive Blood Glucose Test strips RxNorm: Use 1 Test Strip QID at PRN 07/08/19 21 021 Inactive E11.42 Novolog Flexpen U-100 Insulin aspart 100 unit/mL (3 mL) subcutaneous RxNorm: 1427514 Administer per sliding scale Milliliter(s) Subcutaneous TID 151-200: 10 u; 201-250: 20 u; 251-300: 30 u; 301-350: 40 u; 351-400: 50 u. 07/08/19 21 022 Inactive lisinopril 5 mg tablet RxNorm: 812866 Take 1 Tablet(s) Oral QD 07/08/19 021 Inactive Novolog Flexpen U-100 Insulin aspart 100 unit/mL (3 mL) subcutaneous RxNorm: 1528974 Inject 85 Unit(s) Subcutaneous TID 07/08/19 21 022 Inactive clotrimazole 1 % topical cream RxNorm: 046108 Apply to bilateral groin areas Topical BID 07/08/19 21 022 Inactive metoprolol succinate ER 200 mg tablet,extended release 24 hr RxNorm: 631511 Take 1 Tablet(s) Oral QD 07/08/19 021 Inactive Vitamin D3 25 mcg (1,000 unit) tablet RxNorm: 570417 Take 1 Tablet(s) Oral QD 07/08/19 21 021 Inactive isosorbide dinitrate 30 mg tablet RxNorm: 975605 Take 1 Tablet(s) Oral QD 07/08/19 21 021 Inactive Levemir FlexTouch U-100 Insulin 100 unit/mL (3 mL) subcutaneous pen RxNorm: 267251 Inject 140 Unit(s) Subcutaneous BID 07/08/19 21 021 Inactive venlafaxine 75 mg tablet RxNorm: 763710 Take 1 Tablet(s) Oral QD 07/08/19 021 Inactive acetaminophen 500 mg tablet RxNorm: Take 1 Tablet(s) Oral TID as needed for headache 06/18/19 21 021 Inactive acetaminophen 500 mg tablet RxNorm: 485709 Take 1 Tablet(s) Oral TID as needed for headache 06/18/19 21 021 Inactive Lyrica 100 mg capsule RxNorm: 721534 Take 1 Capsule(s) Oral QHS every night at bedtime 06/11/19 21 021 Inactive Lyrica 50 mg capsule RxNorm: 306623 Take 1 Capsule(s) Oral QAM every morning 06/10/19 21 021 Inactive hydrocortisone 2.5 % topical cream RxNorm: 947786 Apply to bilateral groin creases Topical BID 05/15/20 20 021 Inactive clotrimazole 1 % topical cream RxNorm: 262683 Apply to bilateral groin areas Topical BID 05/15/20 20 021 Inactive Lyrica 50 mg capsule RxNorm: 605379 Take 1 Capsule(s) Oral QAM every morning 05/14/20 20 020 Inactive Lyrica 100 mg capsule RxNorm: 096458 Take 1 Capsule(s) Oral QHS every night [...] Inactive Nystop 100,000 unit/gram topical powder RxNorm: 828841 Apply to abd folds, under breasts and L side of groin Topical BID x 14 days, then BID PRN 04/08/20 20 Inactive dx: yeast dermatitis Lyrica 100 mg capsule RxNorm: 446268 Take 1 Capsule(s) Oral QHS every night at bedtime 03/13/20 20 Inactive Lyrica 50 mg capsule RxNorm: 978143 Take 1 Capsule(s) Oral QAM every morning 03/13/20 Inactive ketoconazole 2 % shampoo RxNorm: 386219 Apply Topical two times a week with showers 03/11/20 20 Inactive cholecalciferol (vitamin D3) 50 mcg (2,000 unit) tablet RxNorm: 854661 Take 1 Tablet(s) Oral QD 03/11/20 Inactive Zetia 10 mg tablet RxNorm: 051860 Take 1 Tablet(s) Oral QD 03/07/20 Inactive Zetia 10 mg tablet RxNorm: 125944 Take 1 Tablet(s) Oral QD 03/07/20 20 Inactive Lyrica 50 mg capsule RxNorm: 676297 Take 1 Capsule(s) Oral QAM every morning 02/15/20 20 Inactive Lyrica 100 mg capsule RxNorm: 183608 Take 1 Capsule(s) Oral QHS every night at bedtime 02/15/20 20 Inactive Lyrica 100 mg capsule RxNorm: 519846 Take 1 Capsule(s) Oral QHS every night at bedtime 02/15/20 20 Inactive Lyrica 50 mg capsule RxNorm: 502991 Take 1 Capsule(s) Oral QAM every morning 02/15/20 20 Inactive venlafaxine ER 75 mg capsule,extended release 24 hr RxNorm: 385493 Take 3 Capsule(s) Oral QD 06/12/19 Active polyethylene glycol 3350 17 gram/dose oral powder RxNorm: 383201 Take 17=1 capful Gram(s) Oral BID as needed mix with 4-8oz of liquid 06/12/19 Active Levemir FlexTouch U-100 Insulin 100 unit/mL (3 mL) subcutaneous pen RxNorm: 879747 Inject 80 Unit(s) Subcutaneous BID 07/14/19 23 023 Inactive loperamide 2 mg capsule RxNorm: 126386 Take 1 Capsule(s) Oral QID as needed 06/12/19 22 Active Novolog Flexpen U-100 Insulin aspart 100 unit/mL (3 mL) subcutaneous RxNorm: 0318349 Insert 30 Unit(s) Subcutaneous TID with meals [...] Status Date Referral: [facility] WPtel: [phone] , [address] [id number] [place] Referral Records Received 09/21/2022 Referral: [facility] WPtel: [phone] [id number] [place] Referral Completed 05/28/2021 Referral: General Cardiology Referral Complet ed 01/03/2021 Referral: General Psychologist Referral Close d Instructions Comment Date Leonid is a [facility]. Initial [facility] visit 01/2020. PMHx including DMII, CAD w/ 5 stents, Depression, Seizure Disorder and CKD stage 3. He moved into [facility] in 12/2019 but after a hospitalization 05/2021 he moved to the [facility] to have closer nursing attention. Sister Jyotsna involved in his care cell# [phone] Guardian: Don (tapan met in person 09/01/21), now has Lexii (same group as don)Lab Schedule: * 10/06/2022
--- OUTSIDE RECORDS SUMMARY | 2022-11-10 00:37 | XMS_ITS | CCD ---
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 Name Role Phone Tapan Shirley PA-C Primary Care Provider Unavailabl e Tapan Shirley PA-C Chronic Care Management Unavaila ble Summary Purpose DataExchange Insurance Providers Payer name Policy type / Coverage type Covered green party ID Effective Begin Date Effective End Date [place] Part B [id number] Unknown Unknown [place] Part B [id number] Unknown Unknown Family history Sister Brittany Suggs [...] Unknown Long-Term 09/03/[address]: 2780231 Non-Smoker / No History of Smoking 09/02/[address]: 390881692 No Alcohol Consum ption 09/02/2020 Allergies, Adverse Reactions, Alerts Substance Reaction Codes Entered Date Inactivated Date Status LISINOPRIL RxNorm: 50973 02/12/2020 No Inactive Da te Active Metformin HCl Unknown 02/12/2020 No Inactive Cristiano e Active Problems Condition Codes Effective Dates Condition St atus Amputated toe of right foot ICD-10: S98. 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 ICD-10: Z79.4 [...] Fill Instructions pregabalin 150 mg capsule RxNorm: 429616 1 Capsule(s) Oral HS at bed time 08/18/19 23 023 Active pregabalin 100 mg capsule RxNorm: 020354 1 Capsule(s) Oral QAM every morning 08/18/19 23 023 Active carvedilol 25 mg tablet RxNorm: 447880 1 Tablet(s) Oral QD 07/28/19 23 023 Inactive lisinopril 20 mg tablet RxNorm: 056465 Give 1 Tablet(s) Oral QD 07/28/19 23 023 Inactive Lyrica 150 mg capsule RxNorm: 391307 Take 1 Capsule(s) Oral QHS every night at bedtime 07/19/19 23 023 Inactive d/c 100mg dose Diflucan 150 mg tablet RxNorm: 567258 Take 1 Tablet(s) Oral QD repeat on day 3 and 6 07/19/19 23 023 Inactive pregabalin 100 mg capsule RxNorm: 676896 Take 1 Capsule(s) Oral QAM every morning 07/19/19 23 023 Inactive Humulin R Regular U-100 Insulin 100 unit/mL injection solution RxNorm: 785116 85 Unit(s) Injection TID 07/13/19 23 023 Inactive gatifloxacin 0.5 % eye drops RxNorm: 894243 Instill 1 Drop(s) as directed TID Instill 1 drop in to affected eye(s) starting 1 day prior to surgery and continue until gone (do not exceed 4 weeks). 07/13/19 23 023 Inactive carvedilol 25 mg tablet RxNorm: 316766 2 Tablet(s) Oral BID 07/13/19 023 Inactive ketorolac 0.5 % eye drops RxNorm: 161671 Instill 1 Drop(s) as directed QID Instill 1 drop into affected eye(s) 4 times daily starting 1 day prior to surgery and continue until gone (do not exceed 4 weeks). 07/13/19 23 023 Inactive Diflucan 150 mg tablet RxNorm: 959436 Take 1 Tablet(s) Oral QD repeat on day 3 and 6 06/30/19 23 023 Inactive Accu-Chek Guide test strips RxNorm: Use 1 Test Strip QID Use 1 test strip to monitor blood glucose 4 times daily and as needed. Dx:E11.42. 06/23/19 23 023 Inactive ok to substitute with any covered alternative test strip dextromethorphan-gu aifenesin 10 mg-100 mg/5 mL oral liquid RxNorm: 050489 Take 10 Milliliter(s) Oral every 4 hours as needed for cough 06/19/19 23 023 Inactive dextromethorphan-gu aifenesin 10 mg-100 mg/5 mL oral liquid RxNorm: 468894 Take 10 Milliliter(s) Oral every 4 hours as needed for cough 06/19/19 23 023 Inactive Lyrica 150 mg capsule RxNorm: 729225 Take 1 Capsule(s) Oral QHS every night at bedtime 06/18/19 023 Inactive d/c 100mg dose aripiprazole 15 mg tablet RxNorm: 804462 1/2 TAB (7.5MG) ORALLY DAILY (DX:MAJOR DEPRESSIVE DISORDER) 06/05/19 23 023 Inactive pregabalin 100 mg capsule RxNorm: 877305 1 Capsule(s) Oral QAM every morning 06/02/19 023 Inactive Banophen 50 mg capsule RxNorm: 2688467 Take 1 Capsule(s) Oral Q6H every 6 hours as needed 05/19/19 No Stop Date Active Novolog Flexpen U-100 Insulin aspart 100 unit/mL (3 mL) subcutaneous RxNorm: 2023465 Inject 10 Unit(s) Subcutaneous QHS every night at bedtime with nighttime snack 04/08/20 022 Inactive Novolog Flexpen U-100 Insulin aspart 100 unit/mL (3 mL) subcutaneous RxNorm: 5615122 Inject 42 Unit(s) Subcutaneous TID in addition to sliding scale 04/08/20 022 Inactive d/c 36u albuterol sulfate HFA 90 mcg/actuation aerosol inhaler RxNorm: 2180642 Take 2 Puff(s) Inhalation Q4H every four hours as needed as needed for SOB, cough, or wheezing 04/07/20 22 030 Active Banophen 50 mg capsule RxNorm: 2212308 Take 1 Capsule(s) Oral Q6H every 6 hours as needed 04/06/20 023 Inactive diphenhydramine 50 mg tablet RxNorm: 5401322 Take 1 Tablet(s) Oral Q6H every 6 hours as needed 04/06/20 22 022 Inactive diphenhydramine 50 mg tablet RxNorm: 7762005 1 Tablet(s) Oral Q6H every 6 hours as needed 04/06/20 22 022 Inactive Abilify 15 mg tablet RxNorm: 450914 1/2 Tablet(s) Oral QD 03/10/20 22 023 Inactive Shingrix (PF) 50 mcg/0.5 mL intramuscular suspension, kit RxNorm: 3747039 Administer 1/2 Milliliter(s) Intramuscular QD one time shingrix step 2 ( step 1 given 11/04/21) WITH needle - Nursing please administer upon arrival and once administered post a bridge message with date of administration, lion trainer, expiration date, and lot# so we can update [facility] 02/18/20 22 022 Inactive dispense with needle Shingrix (PF) 50 mcg/0.5 mL intramuscular suspension, kit RxNorm: 0138410 Administer 1/2 Milliliter(s) Intramuscular QD one time shingrix step 2 ( step 1 given 11/04/21) WITH needle - Nursing please administer upon arrival and once administered post a bridge message with date of administration, lion trainer, expiration date, and lot# so we can update [facility] 02/18/20 22 022 Inactive dispense with needle acetaminophen 500 mg tablet RxNorm: 160747 Take 1 Tablet(s) Oral TID 01/08/20 22 023 Active d/c PRN order polyethylene glycol 3350 17 gram/dose oral powder RxNorm: 517783 Take 17=1 capful Gram(s) Oral QD mix with 4-8oz of liquid 01/08/20 22 023 Active take this in addition to BID prn order Lyrica 100 mg capsule RxNorm: 625136 Take 1 Capsule(s) Oral QAM every morning 01/08/20 22 022 Inactive d/c 50mg dose Lyrica 150 mg capsule RxNorm: 325744 Take 1 Capsule(s) Oral QHS every night at bedtime 01/08/20 22 023 Inactive d/c 100mg dose Abilify 5 mg tablet RxNorm: 555084 Take 1 Tablet(s) Oral QD take 1 tab po QD #30 refill 5 dx: MDD 12/12/19 22 022 Inactive Abilify 5 mg tablet RxNorm: 204622 Take 1 Tablet(s) Oral QD take 1 tab po QD #30 refill 5 dx: MDD 12/12/19 22 022 Inactive chlorthalidone 25 mg tablet RxNorm: 450509 Take 1 Tablet(s) Oral QAM every morning 12/10/19 22 023 Active Novolog Flexpen U-100 Insulin aspart 100 unit/mL (3 mL) subcutaneous RxNorm: 5241808 Inject 42 Unit(s) Subcutaneous TID in addition to sliding scale 12/10/19 Inactive d/c 36u pregabalin 50 mg capsule RxNorm: 776055 Take 1 Capsule(s) Oral QAM every morning 11/12/19 Inactive tetanus-diphtheria toxoids-Td 2 Lf unit-2 Lf unit/0.5 mL IM suspension RxNorm: 139 Take 0.5 Miscellaneous Intramuscular 11/12/19 022 Inactive need tdap - nursing to administer upon arrival pregabalin 50 mg capsule RxNorm: 926530 Take 1 Capsule(s) Oral QAM every morning 10/16/19 022 Inactive pregabalin 50 mg capsule RxNorm: 122610 Take 1 Capsule(s) Oral QAM every morning 10/16/19 22 022 Inactive pregabalin 50 mg capsule RxNorm: 256561 1 Capsule(s) Oral QAM every morning 10/15/19 022 Inactive Shingrix (PF) 50 mcg/0.5 mL intramuscular suspension, kit RxNorm: 8626564 Administer 1/2 Milliliter(s) Intramuscular one time Nursing please administer upon arrival and once administered post a bridge message with date of administration, lion trainer, expiration date, and lot# so we can update [facility]. 10/09/19 22 022 Inactive shingrix step 1 Shingrix (PF) 50 mcg/0.5 mL intramuscular suspension, kit RxNorm: 0772208 Administer 1/2 Milliliter(s) Intramuscular one time Nursing please administer upon arrival and once administered post a bridge message with date of administration, lion trainer, expiration date, and lot# so we can update [facility]. 10/09/19 22 022 Inactive shingrix step 1 cholecalciferol (vitamin D3) 1,250 mcg (50,000 unit) capsule RxNorm: 706629 Take 1 Capsule(s) Oral QW once a [...] aspart 100 unit/mL (3 mL) subcutaneous RxNorm: 4966205 Inject 10 Unit(s) Subcutaneous QHS every night at bedtime with nighttime snack 10/08/19 22 Inactive Shingrix (PF) 50 mcg/0.5 mL intramuscular suspension, kit RxNorm: 0555619 ADMINISTER 2-DOSE SERIES PER CDC GUIDELINES 10/08/19 22 Active Shingrix (PF) 50 mcg/0.5 mL intramuscular suspension, kit RxNorm: 5867996 ADMINISTER 2-DOSE SERIES PER CDC GUIDELINES 10/08/19 22 Inactive Novolog Flexpen U-100 Insulin aspart 100 unit/mL (3 mL) subcutaneous RxNorm: 6268266 Inject 36 Unit(s) Subcutaneous TID in addition to sliding scale 10/08/19 22 Inactive Novofine Autocover 30 gauge x 1/3 needle RxNorm: Use 1 Miscellaneous UD as directed Use 1 needle as directed to administer insulin 5 times a day Dx:E11.42. 10/03/19 Inactive ok to substitute with any covered alternative pen needle benzoyl peroxide 10 % topical cleanser RxNorm: 832575 Apply 1 Application Topical QD apply to face, wash rinse and dry once daily (may change to QOD if drying) 08/19/19 22 022 Inactive (%covered by insurance) #60ml refill 11 dx: acne benzoyl peroxide 10 % topical cleanser RxNorm: 167750 Apply 1 Application Topical QD apply to face, wash rinse and dry once daily (may change to QOD if drying) 08/19/19 22 022 Inactive (%covered by insurance) #60ml refill 11 dx: acne benzoyl peroxide 10 % topical cleanser RxNorm: 899340 Apply 1 Application Topical QD apply to face, wash rinse and dry once daily (may change to QOD if drying) 08/19/19 22 022 Inactive (%covered by insurance) #60ml refill 11 dx: acne Lyrica 50 mg capsule RxNorm: 559519 Take 1 Capsule(s) Oral QAM every morning Take 1 capsule by mouth once daily 08/19/19 22 022 Inactive benzoyl peroxide 10 % topical cleanser RxNorm: 207710 Apply 1 Application Topical QD apply to face, wash rinse and dry once daily (may change to QOD if drying) 08/19/19 22 022 Inactive (%covered by insurance) #60ml refill 11 dx: acne Lyrica 100 mg capsule RxNorm: 770523 Take 1 Capsule(s) Oral QHS every night at bedtime Take 1 capsule by mouth once daily at bedtime 08/19/19 22 022 Inactive Lyrica 100 mg capsule RxNorm: 842990 Take 1 Capsule(s) Oral QHS every night at bedtime Take 1 capsule by mouth once daily at bedtime 08/16/19 22 Inactive Lyrica 50 mg capsule RxNorm: 256647 Take 1 Capsule(s) Oral QAM every morning Take 1 capsule by mouth once daily 08/16/19 22 022 Inactive Levemir FlexTouch U-100 Insulin 100 unit/mL (3 mL) subcutaneous pen RxNorm: 660401 Inject 86 Unit(s) Subcutaneous BID 08/05/19 22 022 Inactive d/c 83units BID Lyrica 100 mg capsule RxNorm: 854270 Take 1 Capsule(s) Oral QHS every night at bedtime Take 1 capsule by mouth once daily at bedtime 07/14/19 22 022 Inactive Lyrica 50 mg capsule RxNorm: 296811 Take 1 Capsule(s) Oral QAM every morning Take 1 capsule by mouth once daily 07/14/19 22 022 Inactive Levemir FlexTouch U-100 Insulin 100 unit/mL (3 mL) subcutaneous pen RxNorm: 156744 Inject 83 Unit(s) Subcutaneous BID 07/08/19 22 [...] 30 mg tablet,extended release 24 hr RxNorm: 854478 Take 1 Tablet(s) Oral QD 05/05/20 No Stop Date Active hydralazine 50 mg tablet RxNorm: 304245 Take 1 Tablet(s) Oral QID 05/05/20 21 022 Inactive venlafaxine ER 225 mg tablet,extended release 24 hr RxNorm: 591279 Take 1 Tablet(s) Oral QD 05/05/20 021 Inactive venlafaxine ER 225 mg tablet,extended release 24 hr RxNorm: 903311 Take 1 Tablet(s) Oral QD 05/05/20 022 Inactive hydralazine 50 mg tablet RxNorm: 737354 Take 1 Tablet(s) Oral QID 05/05/20 21 021 Inactive aspirin 81 mg tablet,delayed release RxNorm: 916904 Take 1 Tablet(s) Oral QD 03/31/20 022 Inactive Zetia 10 mg tablet RxNorm: 048258 Take 1 Tablet(s) Oral QD 03/31/20 Inactive Vitamin D2 1,250 mcg (50,000 unit) capsule RxNorm: 1889052 Take 1 Capsule(s) Oral QW once a week x 12 weeks 03/31/20 022 Inactive Vitamin D2 1,250 mcg (50,000 unit) capsule RxNorm: 8965710 Take 1 Capsule(s) Oral QW once a week 03/31/20 Inactive Zetia 10 mg tablet RxNorm: 914261 Take 1 Tablet(s) Oral QD 03/31/20 Inactive hydralazine 25 mg tablet RxNorm: 969906 Take 1 Tablet(s) Oral QID 03/31/20 21 021 Inactive hydralazine 25 mg tablet RxNorm: 379756 Take 1 Tablet(s) Oral QID 03/31/20 021 Inactive hydralazine 10 mg tablet RxNorm: 021405 Take 1 Tablet(s) Oral QID 03/03/20 021 Inactive cephalexin 500 mg tablet RxNorm: 766782 Take 1 Tablet(s) Oral QID 02/27/20 021 Inactive cephalexin 500 mg tablet RxNorm: 777081 Take 1 Tablet(s) Oral QID 02/27/20 21 021 Inactive lisinopril 40 mg tablet RxNorm: 590248 Take 1 Tablet(s) Oral QD 02/11/20 21 023 Inactive Eliquis 5 mg tablet RxNorm: 5454473 Take 1 Tablet(s) Oral BID 01/05/20 022 Inactive Eliquis 5 mg tablet RxNorm: 6115553 Take 2 Tablet(s) Oral QD 01/01/20 021 Inactive Lyrica 50 mg capsule RxNorm: 319511 Take 1 Capsule(s) Oral QAM every morning 12/24/19 021 Inactive Lyrica 100 mg capsule RxNorm: 689421 Take 1 Capsule(s) Oral QHS every night at bedtime 12/24/19 021 Inactive clotrimazole 1 % topical cream RxNorm: 715423 Apply to right foot and toes Topical BID 12/04/19 21 023 Inactive metoprolol succinate ER 200 mg tablet,extended release 24 hr RxNorm: 429898 Take 1 Tablet(s) Oral QD 12/04/19 023 Inactive ciprofloxacin 500 mg tablet RxNorm: 705378 Take 1 Tablet(s) Oral QD 11/30/19 021 Inactive DX ofloxacin otic drops Accu-Chek Guide test strips RxNorm: USE 1 TO CHECK GLUCOSE 4 TIMES DAILY AND NEEDED 11/15/19 023 Inactive Blood Glucose Test strips RxNorm: Use 1 Test Strip QID at PRN 11/05/19 21 023 Inactive E11.42 lisinopril 30 mg tablet RxNorm: 781019 Take 1 Tablet(s) Oral QD 10/30/19 021 Inactive lisinopril 20 mg tablet RxNorm: 077702 Take 1 Tablet(s) Oral QD 10/23/19 021 Inactive lisinopril 20 mg tablet RxNorm: 229178 Take 1 Tablet(s) Oral QD 10/23/19 21 021 Inactive lisinopril 10 mg tablet RxNorm: 255864 Take 1 Tablet(s) Oral QD 10/02/19 21 021 Inactive icosapent ethyl 1 gram capsule RxNorm: 9732259 Take 2 Capsule(s) (2 gm) Oral BID with meals 09/12/19 21 022 Inactive Okay to dispense one 2gm tab if you have that available. icosapent ethyl 1 gram capsule RxNorm: 1138481 Take 2 Capsule(s) Oral BID 09/12/19 21 Inactive Okay to dispense one 2gm tab if you have that available. amlodipine 10 mg tablet RxNorm: 674432 Take 1 Tablet(s) Oral QD 09/04/19 Inactive aspirin 81 mg tablet,delayed release RxNorm: 631751 Take 1 Tablet(s) Oral QD 09/04/19 21 Inactive Levemir FlexTouch U-100 Insulin 100 unit/mL (3 mL) subcutaneous pen RxNorm: 085902 Inject 150 Unit(s) Subcutaneous BID 09/04/19 21 Inactive venlafaxine ER 150 mg tablet,extended release 24 hr RxNorm: 956399 Take 1 Tablet(s) Oral QD 09/04/19 Inactive clotrimazole-betame thasone 1 %-0.05 % topical cream RxNorm: 546630 Apply to rash on red area on left abdomen/chest Topical BID 08/10/19 21 Inactive amlodipine 5 mg tablet RxNorm: 117082 Take 1 Tablet(s) Oral QD 07/31/19 Inactive cephalexin 500 mg tablet RxNorm: 488187 Take 1 Tablet(s) Oral BID BID - Twice Daily 07/31/19 021 Inactive Start 08/01/20 pantoprazole 40 mg tablet,delayed release RxNorm: 844507 Take 1 Tablet(s) Oral QAM every morning 07/08/19 022 Inactive senna 8.6 mg tablet RxNorm: 265039 Take 1 Tablet(s) Oral QD 07/08/19 022 Inactive pravastatin 80 mg tablet RxNorm: 489199 Take 1 Tablet(s) Oral QHS every night at bedtime 07/08/19 022 Inactive carbamazepine 200 mg tablet RxNorm: 800835 Take 1 Tablet(s) Oral BID 07/08/19 022 Inactive torsemide 20 mg tablet RxNorm: 931764 Take 1 Tablet(s) Oral QD 07/08/19 21 023 Inactive clopidogrel 75 mg tablet RxNorm: 349548 Take 1 Tablet(s) Oral QD 07/08/19 21 021 Inactive Blood Glucose Test strips RxNorm: Use 1 Test Strip QID at PRN 07/08/19 21 Inactive E11.42 Novolog Flexpen U-100 Insulin aspart 100 unit/mL (3 mL) subcutaneous RxNorm: 1333361 Administer per sliding scale Milliliter(s) Subcutaneous TID 151-200: 10 u; 201-250: 20 u; 251-300: 30 u; 301-350: 40 u; 351-400: 50 u. 07/08/19 21 022 Inactive lisinopril 5 mg tablet RxNorm: 498892 Take 1 Tablet(s) Oral QD 07/08/19 21 021 Inactive Novolog Flexpen U-100 Insulin aspart 100 unit/mL (3 mL) subcutaneous RxNorm: 6421196 Inject 85 Unit(s) Subcutaneous TID 07/08/19 21 022 Inactive clotrimazole 1 % topical cream RxNorm: 615745 Apply to bilateral groin areas Topical BID 07/08/19 21 022 Inactive metoprolol succinate ER 200 mg tablet,extended release 24 hr RxNorm: 710896 Take 1 Tablet(s) Oral QD 07/08/19 21 021 Inactive Vitamin D3 25 mcg (1,000 unit) tablet RxNorm: 609727 Take 1 Tablet(s) Oral QD 07/08/19 021 Inactive isosorbide dinitrate 30 mg tablet RxNorm: 485492 Take 1 Tablet(s) Oral QD 07/08/19 21 021 Inactive Levemir FlexTouch U-100 Insulin 100 unit/mL (3 mL) subcutaneous pen RxNorm: 134463 Inject 140 Unit(s) Subcutaneous BID 07/08/19 21 021 Inactive venlafaxine 75 mg tablet RxNorm: 762005 Take 1 Tablet(s) Oral QD 07/08/19 21 021 Inactive acetaminophen 500 mg tablet RxNorm: 670120 Take 1 Tablet(s) Oral TID as needed for headache 06/18/19 21 021 Inactive acetaminophen 500 mg tablet RxNorm: 215680 Take 1 Tablet(s) Oral TID as needed for headache 06/18/19 21 021 Inactive Lyrica 100 mg capsule RxNorm: 869734 Take 1 Capsule(s) Oral QHS every night at bedtime 06/11/19 21 021 Inactive Lyrica 50 mg capsule RxNorm: 576319 Take 1 Capsule(s) Oral QAM every morning 06/10/19 21 021 Inactive hydrocortisone 2.5 % topical cream RxNorm: 741606 Apply to bilateral groin creases Topical BID 05/15/20 20 Inactive clotrimazole 1 % topical cream RxNorm: 287463 Apply to bilateral groin areas Topical BID 05/15/20 20 021 Inactive Lyrica 50 mg capsule RxNorm: 999390 Take 1 Capsule(s) Oral QAM every morning 05/14/20 20 020 Inactive Lyrica 100 mg capsule RxNorm: 815032 Take 1 Capsule(s) Oral QHS every night [...] Inactive Nystop 100,000 unit/gram topical powder RxNorm: 009376 Apply to abd folds, under breasts and L side of groin Topical BID x 14 days, then BID PRN 04/08/20 20 Inactive dx: yeast dermatitis Lyrica 100 mg capsule RxNorm: 378414 Take 1 Capsule(s) Oral QHS every night at bedtime 03/13/20 20 Inactive Lyrica 50 mg capsule RxNorm: 127071 Take 1 Capsule(s) Oral QAM every morning 03/13/20 20 Inactive ketoconazole 2 % shampoo RxNorm: 578770 Apply Topical two times a week with showers 03/11/20 Inactive cholecalciferol (vitamin D3) 50 mcg (2,000 unit) tablet RxNorm: 749606 Take 1 Tablet(s) Oral QD 03/11/20 20 Inactive Zetia 10 mg tablet RxNorm: 954971 Take 1 Tablet(s) Oral QD 03/07/20 Inactive Zetia 10 mg tablet RxNorm: 068648 Take 1 Tablet(s) Oral QD 03/07/20 20 Inactive Lyrica 50 mg capsule RxNorm: 598161 Take 1 Capsule(s) Oral QAM every morning 02/15/20 20 Inactive Lyrica 100 mg capsule RxNorm: 296596 Take 1 Capsule(s) Oral QHS every night at bedtime 02/15/20 20 Inactive Lyrica 100 mg capsule RxNorm: 975795 Take 1 Capsule(s) Oral QHS every night at bedtime 02/15/20 20 Inactive Lyrica 50 mg capsule RxNorm: 145008 Take 1 Capsule(s) Oral QAM every morning 02/15/20 20 Inactive venlafaxine ER 75 mg capsule,extended release 24 hr RxNorm: 301129 Take 3 Capsule(s) Oral QD 06/12/19 Active polyethylene glycol 3350 17 gram/dose oral powder RxNorm: 647902 Take 17=1 capful Gram(s) Oral BID as needed mix with 4-8oz of liquid 06/12/19 Active icosapent ethyl 1 gram capsule RxNorm: 7008669 Take 2 Capsule(s) (2 gm) Oral BID with meals 10/07/19 23 023 Inactive Okay to dispense one 2gm tab if you have that available. metoprolol succinate ER 200 mg tablet,extended release 24 hr RxNorm: 059780 Take 1 Tablet(s) Oral QD 08/12/19 Active loperamide 2 mg capsule RxNorm: 071151 Take 1 Capsule(s) Oral QID as needed 06/12/19 Active hydralazine 50 mg tablet RxNorm: 299417 Take 1 Tablet(s) Oral QID 08/12/19 Active Levemir FlexTouch U-100 Insulin 100 unit/mL (3 mL) subcutaneous pen RxNorm: 394805 Inject 80 Unit(s) Subcutaneous BID 07/14/19 23 023 Inactive Novolog Flexpen U-100 Insulin aspart 100 unit/mL (3 mL) subcutaneous RxNorm: 2576676 Insert 30 Unit(s) Subcutaneous TID with meals [...] Codes Status Date Referral: [facility]Ptel: [address] [id number] [place] Referral Records Received 09/21/2022 Referral: [facility] W[facility]: [address] [id number] [place] Referral Completed 05/28/2021 Referral: General Cardiology [...] [facility] nursing attention. Sister Jyotsna involved in his care cell# [phone] Guardian: Don (tapan met in person 09/01/21), now has Lexii (same group as don)Lab Schedule: * 10/06/2022
--- OUTSIDE RECORDS SUMMARY | 2022-11-10 00:37 | XMS_ITS | CCD ---
Author Name Tapan Shirley PA-C Address [address] [place] [address] Phone Organization [facility] Phone Care Team Providers Care Mobile Developer Name Role Phone Tapan Shirely PA-C Primary Care Provider Unavailabl e Tapan Shirley PA-C Chronic Care Management Unavaila ble Summary Purpose DataExchange Insurance Providers Payer name Policy type / Coverage type Covered green party ID Effective Begin Date Effective End Date [place] Part B [id number] Unknown Unknown Medicaid ID Medicare Part B [id number] Unknown Unknown Family history Sister Brittany Suggs [...] Fpc 09/03/[address]: 0484445 Non-Smoker / No History of Smoking 09/02/[address]: 737818307 No Alcohol Consum ption 09/02/2020 Allergies, Adverse Reactions, Alerts Substance Reaction Codes Entered Date Inactivated Date Status LISINOPRIL RxNorm: 47968 02/12/2020 No Inactive Da te Active Metformin HCl Unknown 02/12/2020 No Inactive Cristiano e Active Problems Condition Codes Effective Dates Condition St atus Amputated toe of right foot ICD-10: S98. 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 ICD-10: Z79.4 [...] Fill Instructions carvedilol 25 mg tablet RxNorm: 363951 1 Tablet(s) Oral QD 07/28/19 23 023 Inactive lisinopril 20 mg tablet RxNorm: 722178 Give 1 Tablet(s) Oral QD 07/28/19 23 023 Inactive Lyrica 150 mg capsule RxNorm: 206407 Take 1 Capsule(s) Oral QHS every night at bedtime 07/19/19 23 023 Inactive d/c 100mg dose Diflucan 150 mg tablet RxNorm: 314922 Take 1 Tablet(s) Oral QD repeat on day 3 and 6 07/19/19 23 023 Inactive pregabalin 100 mg capsule RxNorm: 028008 Take 1 Capsule(s) Oral QAM every morning 07/19/19 23 023 Inactive Humulin R Regular U-100 Insulin 100 unit/mL injection solution RxNorm: 912976 85 Unit(s) Injection TID 07/13/19 23 023 Inactive gatifloxacin 0.5 % eye drops RxNorm: 736684 Instill 1 Drop(s) as directed TID Instill 1 drop in to affected eye(s) starting 1 day prior to surgery and continue until gone (do not exceed 4 weeks). 07/13/19 23 023 Inactive carvedilol 25 mg tablet RxNorm: 536786 2 Tablet(s) Oral BID 07/13/19 023 Inactive ketorolac 0.5 % eye drops RxNorm: 864258 Instill 1 Drop(s) as directed QID Instill 1 drop into affected eye(s) 4 times daily starting 1 day prior to surgery and continue until gone (do not exceed 4 weeks). 07/13/19 023 Inactive Diflucan 150 mg tablet RxNorm: 633422 Take 1 Tablet(s) Oral QD repeat on day 3 and 6 06/30/19 023 Inactive Accu-Chek Guide test strips RxNorm: Use 1 Test Strip QID Use 1 test strip to monitor blood glucose 4 times daily and as needed. Dx:E11.42. 06/23/19 23 023 Inactive ok to substitute with any covered alternative test strip dextromethorphan-gu aifenesin 10 mg-100 mg/5 mL oral liquid RxNorm: 259616 Take 10 Milliliter(s) Oral every 4 hours as needed for cough 06/19/19 023 Inactive dextromethorphan-gu aifenesin 10 mg-100 mg/5 mL oral liquid RxNorm: 688688 Take 10 Milliliter(s) Oral every 4 hours as needed for cough 06/19/19 23 023 Inactive Lyrica 150 mg capsule RxNorm: 302891 Take 1 Capsule(s) Oral QHS every night at bedtime 06/18/19 23 023 Inactive d/c 100mg dose aripiprazole 15 mg tablet RxNorm: 869945 /2 TAB (7.5MG) ORALLY DAILY (DX:MAJOR DEPRESSIVE DISORDER) 06/05/19 023 Inactive pregabalin 100 mg capsule RxNorm: 888928 1 Capsule(s) Oral QAM every morning 06/02/19 023 Inactive Banophen 50 mg capsule RxNorm: 3374210 Take 1 Capsule(s) Oral Q6H every 6 hours as needed 05/19/19 No Stop Date Active Novolog Flexpen U-100 Insulin aspart 100 unit/mL (3 mL) subcutaneous RxNorm: 3277474 Inject 10 Unit(s) Subcutaneous QHS every night at bedtime with nighttime snack 04/08/20 022 Inactive Novolog Flexpen U-100 Insulin aspart 100 unit/mL (3 mL) subcutaneous RxNorm: 9153699 Inject 42 Unit(s) Subcutaneous TID in addition to sliding scale 04/08/20 022 Inactive d/c 36u albuterol sulfate HFA 90 mcg/actuation aerosol inhaler RxNorm: 3858848 Take 2 Puff(s) Inhalation Q4H every four hours as needed as needed for SOB, cough, or wheezing 04/07/20 030 Active Banophen 50 mg capsule RxNorm: 8737234 Take 1 Capsule(s) Oral Q6H every 6 hours as needed 04/06/20 023 Inactive diphenhydramine 50 mg tablet RxNorm: 7169828 Take 1 Tablet(s) Oral Q6H every 6 hours as needed 04/06/20 22 022 Inactive diphenhydramine 50 mg tablet RxNorm: 8511476 1 Tablet(s) Oral Q6H every 6 hours as needed 04/06/20 022 Inactive Abilify 15 mg tablet RxNorm: 861230 1/2 Tablet(s) Oral QD 03/10/20 023 Inactive Shingrix (PF) 50 mcg/0.5 mL intramuscular suspension, kit RxNorm: 9701061 Administer 1/2 Milliliter(s) Intramuscular QD one time shingrix step 2 ( step 1 given 11/04/21) WITH needle - Nursing please administer upon arrival and once administered post a bridge message 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, 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, 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, and lot# so we can update [facility] 02/18/20 22 022 Inactive dispense with needle Shingrix (PF) 50 mcg/0.5 mL intramuscular suspension, kit RxNorm: 0083559 Administer 1/2 Milliliter(s) Intramuscular QD one time shingrix step 2 ( step 1 given 11/04/21) WITH needle - Nursing please administer upon arrival and once administered post a bridge message with 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, 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, expiration date, and lot# so we can update [facility] 02/18/20 22 022 Inactive dispense with needle acetaminophen 500 mg tablet RxNorm: 494653 Take 1 Tablet(s) Oral TID 01/08/20 22 023 Active d/c PRN order polyethylene glycol 3350 17 gram/dose oral powder RxNorm: 321193 Take 17=1 capful Gram(s) Oral QD mix with 4-8oz of liquid 01/08/20 22 023 Active take this in addition to BID prn order Lyrica 100 mg capsule RxNorm: 263761 Take 1 Capsule(s) Oral QAM every morning 01/08/20 22 022 Inactive d/c 50mg dose Lyrica 150 mg capsule RxNorm: 387147 Take 1 Capsule(s) Oral QHS every night at bedtime 01/08/20 22 023 Inactive d/c 100mg dose Abilify 5 mg tablet RxNorm: 217086 Take 1 Tablet(s) Oral QD take 1 tab po QD #30 refill 5 dx: MDD 12/12/19 22 022 Inactive Abilify 5 mg tablet RxNorm: 592829 Take 1 Tablet(s) Oral QD take 1 tab po QD #30 refill 5 dx: MDD 12/12/19 22 022 Inactive chlorthalidone 25 mg tablet RxNorm: 498124 Take 1 Tablet(s) Oral QAM every morning 12/10/19 22 023 Active Novolog Flexpen U-100 Insulin aspart 100 unit/mL (3 mL) subcutaneous RxNorm: 9238843 Inject 42 Unit(s) Subcutaneous TID in addition to sliding scale 12/10/19 22 022 Inactive d/c 36u pregabalin 50 mg capsule RxNorm: 160600 Take 1 Capsule(s) Oral QAM every morning 11/12/19 22 022 Inactive tetanus-diphtheria toxoids-Td 2 Lf unit-2 Lf unit/0.5 mL IM suspension RxNorm: 139 Take 0.5 Miscellaneous Intramuscular 11/12/19 22 022 Inactive need tdap - nursing to administer upon arrival pregabalin 50 mg capsule RxNorm: 283848 Take 1 Capsule(s) Oral QAM every morning 10/16/19 22 022 Inactive pregabalin 50 mg capsule RxNorm: 527580 Take 1 Capsule(s) Oral QAM every morning 10/16/19 22 022 Inactive pregabalin 50 mg capsule RxNorm: 207787 1 Capsule(s) Oral QAM every morning 10/15/19 22 022 Inactive Shingrix (PF) 50 mcg/0.5 mL intramuscular suspension, kit RxNorm: 3697203 Administer 1/2 Milliliter(s) Intramuscular one time Nursing please administer upon arrival and once administered post a bridge message with 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 10/09/19 22 022 Inactive shingrix step 1 cholecalciferol (vitamin D3) 1,250 mcg (50,000 unit) capsule RxNorm: 993589 Take 1 Capsule(s) Oral QW once a [...] aspart 100 unit/mL (3 mL) subcutaneous RxNorm: 3577419 Inject 10 Unit(s) Subcutaneous QHS every night at bedtime with nighttime snack 10/08/19 22 Inactive Shingrix (PF) 50 mcg/0.5 mL intramuscular suspension, kit RxNorm: 6248116 ADMINISTER 2-DOSE SERIES PER CDC GUIDELINES 10/08/19 22 Active Shingrix (PF) 50 mcg/0.5 mL intramuscular suspension, kit RxNorm: 5972054 ADMINISTER 2-DOSE SERIES PER CDC GUIDELINES 10/08/19 22 Inactive Novolog Flexpen U-100 Insulin aspart 100 unit/mL (3 mL) subcutaneous RxNorm: 0830255 Inject 36 Unit(s) Subcutaneous TID in addition to sliding scale 10/08/19 22 Inactive Novofine Autocover 30 gauge x 1/3 needle RxNorm: Use 1 Miscellaneous UD as directed Use 1 needle as directed to administer insulin 5 times a day Dx:E11.42. 10/03/19 22 Inactive ok to substitute with any covered alternative pen needle benzoyl peroxide 10 % topical cleanser RxNorm: 421192 Apply 1 Application Topical QD apply to face, wash rinse and dry once daily (may change to QOD if drying) 08/19/19 22 022 Inactive (%covered by insurance) #60ml refill 11 dx: acne benzoyl peroxide 10 % topical cleanser RxNorm: 511735 Apply 1 Application Topical QD apply to face, wash rinse and dry once daily (may change to QOD if drying) 08/19/19 22 022 Inactive (%covered by insurance) #60ml refill 11 dx: acne benzoyl peroxide 10 % topical cleanser RxNorm: 402598 Apply 1 Application Topical QD apply to face, wash rinse and dry once daily (may change to QOD if drying) 08/19/19 22 022 Inactive (%covered by insurance) #60ml refill 11 dx: acne Lyrica 50 mg capsule RxNorm: 962953 Take 1 Capsule(s) Oral QAM every morning Take 1 capsule by mouth once daily 08/19/19 22 022 Inactive benzoyl peroxide 10 % topical cleanser RxNorm: 388030 Apply 1 Application Topical QD apply to face, wash rinse and dry once daily (may change to QOD if drying) 08/19/19 22 022 Inactive (%covered by insurance) #60ml refill 11 dx: acne Lyrica 100 mg capsule RxNorm: 890677 Take 1 Capsule(s) Oral QHS every night at bedtime Take 1 capsule by mouth once daily at bedtime 08/19/19 22 022 Inactive Lyrica 100 mg capsule RxNorm: 099180 Take 1 Capsule(s) Oral QHS every night at bedtime Take 1 capsule by mouth once daily at bedtime 08/16/19 22 022 Inactive Lyrica 50 mg capsule RxNorm: 338292 Take 1 Capsule(s) Oral QAM every morning Take 1 capsule by mouth once daily 08/16/19 22 022 Inactive Levemir FlexTouch U-100 Insulin 100 unit/mL (3 mL) subcutaneous pen RxNorm: 265393 Inject 86 Unit(s) Subcutaneous BID 08/05/19 22 022 Inactive d/c 83units BID Lyrica 100 mg capsule RxNorm: 745624 Take 1 Capsule(s) Oral QHS every night at bedtime Take 1 capsule by mouth once daily at bedtime 07/14/19 22 022 Inactive Lyrica 50 mg capsule RxNorm: 498610 Take 1 Capsule(s) Oral QAM every morning Take 1 capsule by mouth once daily 07/14/19 22 022 Inactive Levemir FlexTouch U-100 Insulin 100 unit/mL (3 mL) subcutaneous pen RxNorm: 099317 Inject 83 Unit(s) Subcutaneous BID 07/08/19 22 [...] 30 mg tablet,extended release 24 hr RxNorm: 380008 Take 1 Tablet(s) Oral QD 05/05/20 No Stop Date Active hydralazine 50 mg tablet RxNorm: 517179 Take 1 Tablet(s) Oral QID 05/05/20 21 022 Inactive venlafaxine ER 225 mg tablet,extended release 24 hr RxNorm: 991469 Take 1 Tablet(s) Oral QD 05/05/20 Inactive venlafaxine ER 225 mg tablet,extended release 24 hr RxNorm: 112042 Take 1 Tablet(s) Oral QD 05/05/20 022 Inactive hydralazine 50 mg tablet RxNorm: 475829 Take 1 Tablet(s) Oral QID 05/05/20 21 021 Inactive aspirin 81 mg tablet,delayed release RxNorm: 973185 Take 1 Tablet(s) Oral QD 03/31/20 Inactive Zetia 10 mg tablet RxNorm: 660040 Take 1 Tablet(s) Oral QD 03/31/20 Inactive Vitamin D2 1,250 mcg (50,000 unit) capsule RxNorm: 0763866 Take 1 Capsule(s) Oral QW once a week x 12 weeks 03/31/20 Inactive Vitamin D2 1,250 mcg (50,000 unit) capsule RxNorm: 3404496 Take 1 Capsule(s) Oral QW once a week 03/31/20 Inactive Zetia 10 mg tablet RxNorm: 764722 Take 1 Tablet(s) Oral QD 03/31/20 Inactive hydralazine 25 mg tablet RxNorm: 200044 Take 1 Tablet(s) Oral QID 03/31/20 021 Inactive hydralazine 25 mg tablet RxNorm: 165956 Take 1 Tablet(s) Oral QID 03/31/20 021 Inactive hydralazine 10 mg tablet RxNorm: 665028 Take 1 Tablet(s) Oral QID 03/03/20 021 Inactive cephalexin 500 mg tablet RxNorm: 477191 Take 1 Tablet(s) Oral QID 02/27/20 021 Inactive cephalexin 500 mg tablet RxNorm: 682233 Take 1 Tablet(s) Oral QID 02/27/20 021 Inactive lisinopril 40 mg tablet RxNorm: 573034 Take 1 Tablet(s) Oral QD 02/11/20 21 023 Inactive Eliquis 5 mg tablet RxNorm: 9956195 Take 1 Tablet(s) Oral BID 01/05/20 21 022 Inactive Eliquis 5 mg tablet RxNorm: 2930880 Take 2 Tablet(s) Oral QD 01/01/20 21 021 Inactive Lyrica 50 mg capsule RxNorm: 101672 Take 1 Capsule(s) Oral QAM every morning 12/24/19 21 021 Inactive Lyrica 100 mg capsule RxNorm: 924037 Take 1 Capsule(s) Oral QHS every night at bedtime 12/24/19 021 Inactive clotrimazole 1 % topical cream RxNorm: 252286 Apply to right foot and toes Topical BID 12/04/19 21 023 Inactive metoprolol succinate ER 200 mg tablet,extended release 24 hr RxNorm: 435193 Take 1 Tablet(s) Oral QD 12/04/19 21 023 Inactive ciprofloxacin 500 mg tablet RxNorm: 337775 Take 1 Tablet(s) Oral QD 11/30/19 021 Inactive DX ofloxacin otic drops Accu-Chek Guide test strips RxNorm: USE 1 TO CHECK GLUCOSE 4 TIMES DAILY AND NEEDED 11/15/19 21 023 Inactive Blood Glucose Test strips RxNorm: Use 1 Test Strip QID at PRN 11/05/19 21 023 Inactive E11.42 lisinopril 30 mg tablet RxNorm: 845424 Take 1 Tablet(s) Oral QD 10/30/19 021 Inactive lisinopril 20 mg tablet RxNorm: 510874 Take 1 Tablet(s) Oral QD 10/23/19 21 021 Inactive lisinopril 20 mg tablet RxNorm: 481772 Take 1 Tablet(s) Oral QD 10/23/19 21 021 Inactive lisinopril 10 mg tablet RxNorm: 819341 Take 1 Tablet(s) Oral QD 10/02/19 21 021 Inactive icosapent ethyl 1 gram capsule RxNorm: 9965830 Take 2 Capsule(s) (2 gm) Oral BID with meals 09/12/19 21 022 Inactive Okay to dispense one 2gm tab if you have that available. icosapent ethyl 1 gram capsule RxNorm: 8134199 Take 2 Capsule(s) Oral BID 09/12/19 21 021 Inactive Okay to dispense one 2gm tab if you have that available. amlodipine 10 mg tablet RxNorm: 250177 Take 1 Tablet(s) Oral QD 09/04/19 022 Inactive aspirin 81 mg tablet,delayed release RxNorm: 516993 Take 1 Tablet(s) Oral QD 09/04/19 Inactive Levemir FlexTouch U-100 Insulin 100 unit/mL (3 mL) subcutaneous pen RxNorm: 604843 Inject 150 Unit(s) Subcutaneous BID 09/04/19 21 022 Inactive venlafaxine ER 150 mg tablet,extended release 24 hr RxNorm: 218027 Take 1 Tablet(s) Oral QD 09/04/19 Inactive clotrimazole-betame thasone 1 %-0.05 % topical cream RxNorm: 541685 Apply to rash on red area on left abdomen/chest Topical BID 08/10/19 21 021 Inactive amlodipine 5 mg tablet RxNorm: 640110 Take 1 Tablet(s) Oral QD 07/31/19 Inactive cephalexin 500 mg tablet RxNorm: 636669 Take 1 Tablet(s) Oral BID BID - Twice Daily 07/31/19 21 021 Inactive Start 08/01/20 pantoprazole 40 mg tablet,delayed release RxNorm: 591497 Take 1 Tablet(s) Oral QAM every morning 07/08/19 022 Inactive senna 8.6 mg tablet RxNorm: 426208 Take 1 Tablet(s) Oral QD 07/08/19 022 Inactive pravastatin 80 mg tablet RxNorm: 618026 Take 1 Tablet(s) Oral QHS every night at bedtime 07/08/19 022 Inactive carbamazepine 200 mg tablet RxNorm: 431096 Take 1 Tablet(s) Oral BID 07/08/19 022 Inactive torsemide 20 mg tablet RxNorm: 212024 Take 1 Tablet(s) Oral QD 07/08/19 21 023 Inactive clopidogrel 75 mg tablet RxNorm: 103090 Take 1 Tablet(s) Oral QD 07/08/19 021 Inactive Blood Glucose Test strips RxNorm: Use 1 Test Strip QID at PRN 07/08/19 21 Inactive E11.42 Novolog Flexpen U-100 Insulin aspart 100 unit/mL (3 mL) subcutaneous RxNorm: 9758948 Administer per sliding scale Milliliter(s) Subcutaneous TID 151-200: 10 u; 201-250: 20 u; 251-300: 30 u; 301-350: 40 u; 351-400: 50 u. 07/08/19 21 022 Inactive lisinopril 5 mg tablet RxNorm: 509735 Take 1 Tablet(s) Oral QD 07/08/19 021 Inactive Novolog Flexpen U-100 Insulin aspart 100 unit/mL (3 mL) subcutaneous RxNorm: 3586743 Inject 85 Unit(s) Subcutaneous TID 07/08/19 022 Inactive clotrimazole 1 % topical cream RxNorm: 058180 Apply to bilateral groin areas Topical BID 07/08/19 21 022 Inactive metoprolol succinate ER 200 mg tablet,extended release 24 hr RxNorm: 792550 Take 1 Tablet(s) Oral QD 07/08/19 021 Inactive Vitamin D3 25 mcg (1,000 unit) tablet RxNorm: 878753 Take 1 Tablet(s) Oral QD 07/08/19 021 Inactive isosorbide dinitrate 30 mg tablet RxNorm: 846578 Take 1 Tablet(s) Oral QD 07/08/19 021 Inactive Levemir FlexTouch U-100 Insulin 100 unit/mL (3 mL) subcutaneous pen RxNorm: 492914 Inject 140 Unit(s) Subcutaneous BID 07/08/19 021 Inactive venlafaxine 75 mg tablet RxNorm: 840742 Take 1 Tablet(s) Oral QD 07/08/19 21 021 Inactive acetaminophen 500 mg tablet RxNorm: 617899 Take 1 Tablet(s) Oral TID as needed for headache 06/18/19 21 021 Inactive acetaminophen 500 mg tablet RxNorm: 817404 Take 1 Tablet(s) Oral TID as needed for headache 06/18/19 21 021 Inactive Lyrica 100 mg capsule RxNorm: 260378 Take 1 Capsule(s) Oral QHS every night at bedtime 06/11/19 21 021 Inactive Lyrica 50 mg capsule RxNorm: 455171 Take 1 Capsule(s) Oral QAM every morning 06/10/19 21 021 Inactive hydrocortisone 2.5 % topical cream RxNorm: 403760 Apply to bilateral groin creases Topical BID 05/15/20 20 021 Inactive clotrimazole 1 % topical cream RxNorm: 520222 Apply to bilateral groin areas Topical BID 05/15/20 20 021 Inactive Lyrica 50 mg capsule RxNorm: 296625 Take 1 Capsule(s) Oral QAM every morning 05/14/20 20 020 Inactive Lyrica 100 mg capsule RxNorm: 538576 Take 1 Capsule(s) Oral QHS every night [...] Inactive Nystop 100,000 unit/gram topical powder RxNorm: 701436 Apply to abd folds, under breasts and L side of groin Topical BID x 14 days, then BID PRN 04/08/20 20 11/17/2 021 Inactive dx: yeast dermatitis Lyrica 100 mg capsule RxNorm: 969960 Take 1 Capsule(s) Oral QHS every night at bedtime 03/13/20 20 Inactive Lyrica 50 mg capsule RxNorm: 274267 Take 1 Capsule(s) Oral QAM every morning 03/13/20 20 Inactive ketoconazole 2 % shampoo RxNorm: 684345 Apply Topical two times a week with showers 03/11/20 Inactive cholecalciferol (vitamin D3) 50 mcg (2,000 unit) tablet RxNorm: 782756 Take 1 Tablet(s) Oral QD 03/11/20 Inactive Zetia 10 mg tablet RxNorm: 045310 Take 1 Tablet(s) Oral QD 03/07/20 Inactive Zetia 10 mg tablet RxNorm: 945492 Take 1 Tablet(s) Oral QD 03/07/20 Inactive Lyrica 50 mg capsule RxNorm: 294680 Take 1 Capsule(s) Oral QAM every morning 02/15/20 20 Inactive Lyrica 100 mg capsule RxNorm: 224292 Take 1 Capsule(s) Oral QHS every night at bedtime 02/15/20 Inactive Lyrica 100 mg capsule RxNorm: 581001 Take 1 Capsule(s) Oral QHS every night at bedtime 02/15/20 Inactive Lyrica 50 mg capsule RxNorm: 398348 Take 1 Capsule(s) Oral QAM every morning 02/15/20 20 Inactive venlafaxine ER 75 mg capsule,extended release 24 hr RxNorm: 048029 Take 3 Capsule(s) Oral QD 06/12/19 Active polyethylene glycol 3350 17 gram/dose oral powder RxNorm: 450622 Take 17=1 capful Gram(s) Oral BID as needed mix with 4-8oz of liquid 06/12/19 Active icosapent ethyl 1 gram capsule RxNorm: 4283338 Take 2 Capsule(s) (2 gm) Oral BID with meals 10/07/19 23 05/22/2 023 Inactive Okay to dispense one 2gm tab if you have that available. metoprolol succinate ER 200 mg tablet,extended release 24 hr RxNorm: 894159 Take 1 Tablet(s) Oral QD 08/12/19 23 Active loperamide 2 mg capsule RxNorm: 408713 Take 1 Capsule(s) Oral QID as needed 06/12/19 22 Active hydralazine 50 mg tablet RxNorm: 334923 Take 1 Tablet(s) Oral QID 08/12/19 23 Active Levemir FlexTouch U-100 Insulin 100 unit/mL (3 mL) subcutaneous pen RxNorm: 643147 Inject 80 Unit(s) Subcutaneous BID 07/14/19 23 023 Inactive Novolog Flexpen U-100 Insulin aspart 100 unit/mL (3 mL) subcutaneous RxNorm: 0941442 Insert 30 Unit(s) Subcutaneous TID with meals [...] 08/11/2022 DEBRIDE NAIL 6 OR MORE CPT-4: 45394 Vital Signs Date Vital 08/11/2022 Blood Pressure 1: 135/90 Code: 8480-6 BMI: 68.9 Code: 18822-5 Heart Rate 1: 78 bpm Code: 8867-4 Height: 5'5 Code: 8302-2 Respiratory Rate: 16 bpm SpO2: 98% Temperature: 36.7 (C) / 98.1 (F) Weight: 414 lbs Code: 3141-9 Reason For Visit No Reason For Visit data Encounters Encounter Performer Location Location Address Codes Date ([address]62) Home or Residence Visit Est Pt - [...] foot[ICD10: S98.131A] Diagnosis: Coronary artery disease involving chemehuevi coronary artery of chemehuevi heart, angina presence unspecified[ICD10: I25.10] Tapan Shirley [facility] [address] [place] [address] CPT-4: 94794 08/11/2022 Plan of Care Planned Activity Notes Codes Status Date Referral: [facility] WPtel: [address], [address] [id number] [place] Referral Records Received 09/21/2022 Patient Education: Patient M edication Summary Completed 08/11/2022 Patient Education: Influenza Vaccine Completed 08/11/2022 Appointment: Tapan Shirley [address]: [address] [place] F/U 07/14/2022 Appointment: Tapan Shirley [address]: [address] [place] F/U 02/10/2022 Referral: [facility] WPtel: [address] [id number] [place] Referral Completed 05/28/2021 Referral: General Cardiology Referral Complet ed 01/03/2021 Referral: General Psychologist Referral Close d Instructions Comment Date Leonid is a Male being seen living at [facility]. Initial BPS visit 01/2020. PMHx including DMII, CAD w/ 5 stents, Depression, Seizure Disorder and CKD stage 3. He moved into [facility] in 12/2019 but after a hospitalization 05/2021 he moved to the [facility] to have closer nursing attention. Sister Jyotsna involved in his care cell# [phone] Guardian: Don (tapan met in person 09/01/21), now has Lexii (same group as don)Lab Schedule: Mar-* 10/06/2022 Amputated toe of right foot amputated 2/2 infection Diabetes BGs running really high (up to the 500s) but patient is followed by endo so advised DON to send BG log to them for review even if he doesn't have an appt scheduled. Pre-op evaluation PATIENT IS CLEARED FOR RIGHT EYE CATARACT SURGERY. Onychogryposis (*9*) toenails debrided today, (*5*) on left foot, (*4*) on right foot. Medical grade nail clippers and electric dremel used to significantly reduce length & thickness. Anti-fungal treatment options reviewed, discussion deferred as treatment not appropriate or beneficial to patient. Patient tolerated procedure well. Secondary hypertension Patient has not seen adjudication specialist - would like patient to still establish with one due to elevated BPs and a complicated cardiac history. Msg sent to referrals to assist. Continue amlodipine 10mg, carvedilol, and chlorthalidone, and lisinopril. Crime Analyst recommended stopping lisinopril and starting olmesartan but this has not been implemented. Patient to f/u with arborist. Ischemic Heart Disease Should be followed by arborist - staff to assist with making an appt. to f/u on 05/2022 visit (renal u/s ordered but DON unsure if it was completed). . 08/11/2022
--- OUTSIDE RECORDS SUMMARY | 2022-11-10 00:38 | XMS_ITS | CCD ---
Author Name Tapan Shirley PA-C Address [address] [facility] [address] [place] [address] Phone Organization [facility] Phone Care Team Providers Care General Car Yard Supervisor Name Role Phone Tapan Shirley PA-C Primary Care Provider Unavailabl e Tapan Shirley PA-C Chronic Care Management Unavaila ble Summary Purpose DataExchange Insurance Providers Payer name Policy type / Coverage type Covered constitution party ID Effective Begin Date Effective End Date Medicare [place] Medicare Part B [id number] Unknown Unknown [place] Medicare Part B [id number] Unknown Unknown Family history Sister Brittany Suggs [...] Jail 09/03/19 [address]: 1729743 Non-Smoker / No History of Smoking 09/02/[address]: 273302281 No Alcohol Consum ption 09/02/2020 Allergies, Adverse Reactions, Alerts Substance Reaction Codes Entered Date Inactivated Date Status LISINOPRIL RxNorm: 96226 02/12/2020 No Inactive Da te Active Metformin [...] 08/11/2022 Active Coronary artery disease invo lving [place] coronary artery of [place] heart, angina presence unspecified ICD-10: I25.10 ICD-9: [...] ICD-10: Z23 ICD-9: V03.89 02/10/2022 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 ICD-10: [...] Fill Instructions torsemide 20 mg tablet RxNorm: 701935 Take 1 Tablet(s) Oral BID 09/09/19 23 024 Active d/c once daily dosing carvedilol 25 mg tablet RxNorm: 218272 Take 1 Tablet(s) Oral QD 08/25/19 23 024 Active pregabalin 150 mg capsule RxNorm: 084520 1 Capsule(s) Oral HS at bed time 08/18/19 23 023 Active pregabalin 100 mg capsule RxNorm: 115339 1 Capsule(s) Oral QAM every morning 08/18/19 23 023 Active lisinopril 20 mg tablet RxNorm: 126864 Give 1 Tablet(s) Oral QD 07/28/19 23 023 Inactive carvedilol 25 mg tablet RxNorm: 991420 1 Tablet(s) Oral QD 07/28/19 23 023 Inactive Lyrica 150 mg capsule RxNorm: 333339 Take 1 Capsule(s) Oral QHS every night at bedtime 07/19/19 23 023 Inactive d/c 100mg dose Diflucan 150 mg tablet RxNorm: 456295 Take 1 Tablet(s) Oral QD repeat on day 3 and 6 07/19/19 23 023 Inactive pregabalin 100 mg capsule RxNorm: 123924 Take 1 Capsule(s) Oral QAM every morning 07/19/19 023 Inactive Humulin R Regular U-100 Insulin 100 unit/mL injection solution RxNorm: 458191 85 Unit(s) Injection TID 07/13/19 23 023 Inactive gatifloxacin 0.5 % eye drops RxNorm: 449391 Instill 1 Drop(s) as directed TID Instill 1 drop in to affected eye(s) starting 1 day prior to surgery and continue until gone (do not exceed 4 weeks). 07/13/19 23 023 Inactive carvedilol 25 mg tablet RxNorm: 643548 2 Tablet(s) Oral BID 07/13/19 023 Inactive ketorolac 0.5 % eye drops RxNorm: 480190 Instill 1 Drop(s) as directed QID Instill 1 drop into affected eye(s) 4 times daily starting 1 day prior to surgery and continue until gone (do not exceed 4 weeks). 07/13/19 23 023 Inactive Diflucan 150 mg tablet RxNorm: 846672 Take 1 Tablet(s) Oral QD repeat on day 3 and 6 06/30/19 23 023 Inactive Accu-Chek Guide test strips RxNorm: Use 1 Test Strip QID Use 1 test strip to monitor blood glucose 4 times daily and as needed. Dx:E11.42. 06/23/19 23 023 Inactive ok to substitute with any covered alternative test strip dextromethorphan-gu aifenesin 10 mg-100 mg/5 mL oral liquid RxNorm: 353501 Take 10 Milliliter(s) Oral every 4 hours as needed for cough 06/19/19 23 023 Inactive dextromethorphan-gu aifenesin 10 mg-100 mg/5 mL oral liquid RxNorm: 019480 Take 10 Milliliter(s) Oral every 4 hours as needed for cough 06/19/19 023 Inactive Lyrica 150 mg capsule RxNorm: 240228 Take 1 Capsule(s) Oral QHS every night at bedtime 06/18/19 023 Inactive d/c 100mg dose aripiprazole 15 mg tablet RxNorm: 800564 /2 TAB (7.5MG) ORALLY DAILY (DX:MAJOR DEPRESSIVE DISORDER) 06/05/19 023 Inactive pregabalin 100 mg capsule RxNorm: 806109 1 Capsule(s) Oral QAM every morning 06/02/19 023 Inactive Banophen 50 mg capsule RxNorm: 0464000 Take 1 Capsule(s) Oral Q6H every 6 hours as needed 05/19/19 23 No Stop Date Active Novolog Flexpen U-100 Insulin aspart 100 unit/mL (3 mL) subcutaneous RxNorm: 1708130 Inject 10 Unit(s) Subcutaneous QHS every night at bedtime with nighttime snack 04/08/20 022 Inactive Novolog Flexpen U-100 Insulin aspart 100 unit/mL (3 mL) subcutaneous RxNorm: 9827893 Inject 42 Unit(s) Subcutaneous TID in addition to sliding scale 04/08/20 022 Inactive d/c 36u albuterol sulfate HFA 90 mcg/actuation aerosol inhaler RxNorm: 3209594 Take 2 Puff(s) Inhalation Q4H every four hours as needed as needed for SOB, cough, or wheezing 04/07/20 030 Active Banophen 50 mg capsule RxNorm: 8378876 Take 1 Capsule(s) Oral Q6H every 6 hours as needed 04/06/20 023 Inactive diphenhydramine 50 mg tablet RxNorm: 6190760 Take 1 Tablet(s) Oral Q6H every 6 hours as needed 04/06/20 22 022 Inactive diphenhydramine 50 mg tablet RxNorm: 3239053 1 Tablet(s) Oral Q6H every 6 hours as needed 04/06/20 22 022 Inactive Abilify 15 mg tablet RxNorm: 444056 1/2 Tablet(s) Oral QD 03/10/20 22 023 Inactive Shingrix (PF) 50 mcg/0.5 mL intramuscular suspension, kit RxNorm: 3415054 Administer 1/2 Milliliter(s) Intramuscular QD one time shingrix step 2 ( step 1 given 11/04/21) WITH needle - Nursing please administer upon arrival and once administered post a bridge message with date of administration, 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, expiration date, and lot# so we can update MIIC 02/18/20 22 022 Inactive dispense with needle Shingrix (PF) 50 mcg/0.5 mL intramuscular suspension, kit RxNorm: 9766985 Administer 1/2 Milliliter(s) Intramuscular QD one time shingrix step 2 ( step 1 given 11/04/21) WITH needle - Nursing please administer upon arrival and once administered post a bridge message with date of administration, 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, expiration date, and lot# so we can update MIIC 02/18/20 22 022 Inactive dispense with needle acetaminophen 500 mg tablet RxNorm: 601449 Take 1 Tablet(s) Oral TID 01/08/20 22 023 Active d/c PRN order polyethylene glycol 3350 17 gram/dose oral powder RxNorm: 194664 Take 17=1 capful Gram(s) Oral QD mix with 4-8oz of liquid 01/08/20 22 023 Active take this in addition to BID prn order Lyrica 100 mg capsule RxNorm: 961800 Take 1 Capsule(s) Oral QAM every morning 01/08/20 22 022 Inactive d/c 50mg dose Lyrica 150 mg capsule RxNorm: 605988 Take 1 Capsule(s) Oral QHS every night at bedtime 01/08/20 22 023 Inactive d/c 100mg dose Abilify 5 mg tablet RxNorm: 565352 Take 1 Tablet(s) Oral QD take 1 tab po QD #30 refill 5 dx: MDD 12/12/19 22 022 Inactive Abilify 5 mg tablet RxNorm: 232423 Take 1 Tablet(s) Oral QD take 1 tab po QD #30 refill 5 dx: MDD 12/12/19 22 022 Inactive chlorthalidone 25 mg tablet RxNorm: 883278 Take 1 Tablet(s) Oral QAM every morning 12/10/19 22 023 Active Novolog Flexpen U-100 Insulin aspart 100 unit/mL (3 mL) subcutaneous RxNorm: 6094705 Inject 42 Unit(s) Subcutaneous TID in addition to sliding scale 12/10/19 22 022 Inactive d/c 36u pregabalin 50 mg capsule RxNorm: 521111 Take 1 Capsule(s) Oral QAM every morning 11/12/19 22 022 Inactive tetanus-diphtheria toxoids-Td 2 Lf unit-2 Lf unit/0.5 mL IM suspension RxNorm: 139 Take 0.5 Miscellaneous Intramuscular 11/12/19 22 022 Inactive need tdap - nursing to administer upon arrival pregabalin 50 mg capsule RxNorm: 974038 Take 1 Capsule(s) Oral QAM every morning 10/16/19 22 022 Inactive pregabalin 50 mg capsule RxNorm: 845817 Take 1 Capsule(s) Oral QAM every morning 10/16/19 22 022 Inactive pregabalin 50 mg capsule RxNorm: 456893 1 Capsule(s) Oral QAM every morning 10/15/19 22 022 Inactive Shingrix (PF) 50 mcg/0.5 mL intramuscular suspension, kit RxNorm: 6241373 Administer 1/2 Milliliter(s) Intramuscular one time Nursing please administer upon arrival and once administered post a bridge message with date of administration, 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, expiration date, and lot# so we can update MIIC. 10/09/19 22 022 Inactive shingrix step 1 Shingrix (PF) 50 mcg/0.5 mL intramuscular suspension, kit RxNorm: 1016550 Administer 1/2 Milliliter(s) Intramuscular one time Nursing please administer upon arrival and once administered post a bridge message with date of administration, 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, expiration date, and lot# so we can update MIIC. 10/09/19 22 022 Inactive shingrix step 1 cholecalciferol (vitamin D3) 1,250 mcg (50,000 unit) capsule RxNorm: 573743 Take 1 Capsule(s) Oral QW once a [...] aspart 100 unit/mL (3 mL) subcutaneous RxNorm: 5291443 Inject 10 Unit(s) Subcutaneous QHS every night at bedtime with nighttime snack 10/08/19 22 022 Inactive Shingrix (PF) 50 mcg/0.5 mL intramuscular suspension, kit RxNorm: 3844091 ADMINISTER 2-DOSE SERIES PER CDC GUIDELINES 10/08/19 22 022 Active Shingrix (PF) 50 mcg/0.5 mL intramuscular suspension, kit RxNorm: 7183961 ADMINISTER 2-DOSE SERIES PER CDC GUIDELINES 10/08/19 22 022 Inactive Novolog Flexpen U-100 Insulin aspart 100 unit/mL (3 mL) subcutaneous RxNorm: 3515825 Inject 36 Unit(s) Subcutaneous TID in addition to sliding scale 10/08/19 22 Inactive Novofine Autocover 30 gauge x 1/3 needle RxNorm: Use 1 Miscellaneous UD as directed Use 1 needle as directed to administer insulin 5 times a day Dx:E11.42. 10/03/19 22 022 Inactive ok to substitute with any covered alternative pen needle benzoyl peroxide 10 % topical cleanser RxNorm: 752678 Apply 1 Application Topical QD apply to face, wash rinse and dry once daily (may change to QOD if drying) 08/19/19 22 022 Inactive (%covered by insurance) #60ml refill 11 dx: acne benzoyl peroxide 10 % topical cleanser RxNorm: 776943 Apply 1 Application Topical QD apply to face, wash rinse and dry once daily (may change to QOD if drying) 08/19/19 22 022 Inactive (%covered by insurance) #60ml refill 11 dx: acne benzoyl peroxide 10 % topical cleanser RxNorm: 879412 Apply 1 Application Topical QD apply to face, wash rinse and dry once daily (may change to QOD if drying) 08/19/19 022 Inactive (%covered by insurance) #60ml refill 11 dx: acne Lyrica 50 mg capsule RxNorm: 130494 Take 1 Capsule(s) Oral QAM every morning Take 1 capsule by mouth once daily 08/19/19 022 Inactive benzoyl peroxide 10 % topical cleanser RxNorm: 399897 Apply 1 Application Topical QD apply to face, wash rinse and dry once daily (may change to QOD if drying) 08/19/19 022 Inactive (%covered by insurance) #60ml refill 11 dx: acne Lyrica 100 mg capsule RxNorm: 287480 Take 1 Capsule(s) Oral QHS every night at bedtime Take 1 capsule by mouth once daily at bedtime 08/19/19 22 022 Inactive Lyrica 100 mg capsule RxNorm: 189746 Take 1 Capsule(s) Oral QHS every night at bedtime Take 1 capsule by mouth once daily at bedtime 08/16/19 22 022 Inactive Lyrica 50 mg capsule RxNorm: 499368 Take 1 Capsule(s) Oral QAM every morning Take 1 capsule by mouth once daily 08/16/19 22 022 Inactive Levemir FlexTouch U-100 Insulin 100 unit/mL (3 mL) subcutaneous pen RxNorm: 218868 Inject 86 Unit(s) Subcutaneous BID 08/05/19 22 022 Inactive d/c 83units BID Lyrica 100 mg capsule RxNorm: 552772 Take 1 Capsule(s) Oral QHS every night at bedtime Take 1 capsule by mouth once daily at bedtime 07/14/19 22 Inactive Lyrica 50 mg capsule RxNorm: 915758 Take 1 Capsule(s) Oral QAM every morning Take 1 capsule by mouth once daily 07/14/19 22 Inactive Levemir FlexTouch U-100 Insulin 100 unit/mL (3 mL) subcutaneous pen RxNorm: 958872 Inject 83 Unit(s) Subcutaneous BID 07/08/19 22 [...] 30 mg tablet,extended release 24 hr RxNorm: 245722 Take 1 Tablet(s) Oral QD 05/05/20 No Stop Date Active hydralazine 50 mg tablet RxNorm: 210585 Take 1 Tablet(s) Oral QID 05/05/20 Inactive venlafaxine ER 225 mg tablet,extended release 24 hr RxNorm: 817528 Take 1 Tablet(s) Oral QD 05/05/20 Inactive venlafaxine ER 225 mg tablet,extended release 24 hr RxNorm: 145762 Take 1 Tablet(s) Oral QD 05/05/20 Inactive hydralazine 50 mg tablet RxNorm: 452421 Take 1 Tablet(s) Oral QID 05/05/20 Inactive aspirin 81 mg tablet,delayed release RxNorm: 477102 Take 1 Tablet(s) Oral QD 03/31/20 Inactive Zetia 10 mg tablet RxNorm: 528423 Take 1 Tablet(s) Oral QD 03/31/20 Inactive Vitamin D2 1,250 mcg (50,000 unit) capsule RxNorm: 6868252 Take 1 Capsule(s) Oral QW once a week x 12 weeks 03/31/20 Inactive Vitamin D2 1,250 mcg (50,000 unit) capsule RxNorm: 4666730 Take 1 Capsule(s) Oral QW once a week 03/31/20 Inactive Zetia 10 mg tablet RxNorm: 986377 Take 1 Tablet(s) Oral QD 03/31/20 Inactive hydralazine 25 mg tablet RxNorm: 983985 Take 1 Tablet(s) Oral QID 03/31/20 21 Inactive hydralazine 25 mg tablet RxNorm: 351847 Take 1 Tablet(s) Oral QID 03/31/20 Inactive hydralazine 10 mg tablet RxNorm: 676124 Take 1 Tablet(s) Oral QID 03/03/20 21 021 Inactive cephalexin 500 mg tablet RxNorm: 199424 Take 1 Tablet(s) Oral QID 02/27/20 021 Inactive cephalexin 500 mg tablet RxNorm: 242423 Take 1 Tablet(s) Oral QID 02/27/20 021 Inactive lisinopril 40 mg tablet RxNorm: 691405 Take 1 Tablet(s) Oral QD 02/11/20 023 Inactive Eliquis 5 mg tablet RxNorm: 5609570 Take 1 Tablet(s) Oral BID 01/05/20 21 022 Inactive Eliquis 5 mg tablet RxNorm: 3275252 Take 2 Tablet(s) Oral QD 01/01/20 021 Inactive Lyrica 50 mg capsule RxNorm: 767789 Take 1 Capsule(s) Oral QAM every morning 12/24/19 021 Inactive Lyrica 100 mg capsule RxNorm: 580228 Take 1 Capsule(s) Oral QHS every night at bedtime 12/24/19 021 Inactive clotrimazole 1 % topical cream RxNorm: 555288 Apply to right foot and toes Topical BID 12/04/19 21 023 Inactive metoprolol succinate ER 200 mg tablet,extended release 24 hr RxNorm: 627648 Take 1 Tablet(s) Oral QD 12/04/19 023 Inactive ciprofloxacin 500 mg tablet RxNorm: 687262 Take 1 Tablet(s) Oral QD 11/30/19 021 Inactive DX ofloxacin otic drops Accu-Chek Guide test strips RxNorm: USE 1 TO CHECK GLUCOSE 4 TIMES DAILY AND NEEDED 11/15/19 21 023 Inactive Blood Glucose Test strips RxNorm: Use 1 Test Strip QID at PRN 11/05/19 21 023 Inactive E11.42 lisinopril 30 mg tablet RxNorm: 704804 Take 1 Tablet(s) Oral QD 10/30/19 21 021 Inactive lisinopril 20 mg tablet RxNorm: 202258 Take 1 Tablet(s) Oral QD 10/23/19 21 021 Inactive lisinopril 20 mg tablet RxNorm: 965596 Take 1 Tablet(s) Oral QD 10/23/19 21 021 Inactive lisinopril 10 mg tablet RxNorm: 837697 Take 1 Tablet(s) Oral QD 10/02/19 21 021 Inactive icosapent ethyl 1 gram capsule RxNorm: 3295451 Take 2 Capsule(s) (2 gm) Oral BID with meals 09/12/19 022 Inactive Okay to dispense one 2gm tab if you have that available. icosapent ethyl 1 gram capsule RxNorm: 2242377 Take 2 Capsule(s) Oral BID 09/12/19 021 Inactive Okay to dispense one 2gm tab if you have that available. amlodipine 10 mg tablet RxNorm: 426657 Take 1 Tablet(s) Oral QD 09/04/19 022 Inactive aspirin 81 mg tablet,delayed release RxNorm: 701521 Take 1 Tablet(s) Oral QD 09/04/19 21 021 Inactive Levemir FlexTouch U-100 Insulin 100 unit/mL (3 mL) subcutaneous pen RxNorm: 073913 Inject 150 Unit(s) Subcutaneous BID 09/04/19 21 022 Inactive venlafaxine ER 150 mg tablet,extended release 24 hr RxNorm: 495105 Take 1 Tablet(s) Oral QD 09/04/19 021 Inactive clotrimazole-betame thasone 1 %-0.05 % topical cream RxNorm: 265162 Apply to rash on red area on left abdomen/chest Topical BID 08/10/19 21 021 Inactive amlodipine 5 mg tablet RxNorm: 498935 Take 1 Tablet(s) Oral QD 07/31/19 21 021 Inactive cephalexin 500 mg tablet RxNorm: 796697 Take 1 Tablet(s) Oral BID BID - Twice Daily 07/31/19 21 021 Inactive Start 08/01/20 pantoprazole 40 mg tablet,delayed release RxNorm: 294017 Take 1 Tablet(s) Oral QAM every morning 02 022 Inactive senna 8.6 mg tablet RxNorm: 547278 Take 1 Tablet(s) Oral QD 07/08/19 022 Inactive pravastatin 80 mg tablet RxNorm: 826232 Take 1 Tablet(s) Oral QHS every night at bedtime 07/08/19 022 Inactive carbamazepine 200 mg tablet RxNorm: 561096 Take 1 Tablet(s) Oral BID 07/08/19 022 Inactive torsemide 20 mg tablet RxNorm: 654397 Take 1 Tablet(s) Oral QD 07/08/19 023 Inactive clopidogrel 75 mg tablet RxNorm: 782323 Take 1 Tablet(s) Oral QD 07/08/19 Inactive Blood Glucose Test strips RxNorm: Use 1 Test Strip QID at PRN 07/08/19 Inactive E11.42 Novolog Flexpen U-100 Insulin aspart 100 unit/mL (3 mL) subcutaneous RxNorm: 8502982 Administer per sliding scale Milliliter(s) Subcutaneous TID 151-200: 10 u; 201-250: 20 u; 251-300: 30 u; 301-350: 40 u; 351-400: 50 u. 07/08/19 022 Inactive lisinopril 5 mg tablet RxNorm: 489975 Take 1 Tablet(s) Oral QD 07/08/19 Inactive Novolog Flexpen U-100 Insulin aspart 100 unit/mL (3 mL) subcutaneous RxNorm: 6833442 Inject 85 Unit(s) Subcutaneous TID 07/08/19 022 Inactive clotrimazole 1 % topical cream RxNorm: 206676 Apply to bilateral groin areas Topical BID 07/08/19 Inactive metoprolol succinate ER 200 mg tablet,extended release 24 hr RxNorm: 164198 Take 1 Tablet(s) Oral QD 07/08/19 021 Inactive Vitamin D3 25 mcg (1,000 unit) tablet RxNorm: 112448 Take 1 Tablet(s) Oral QD 07/08/19 021 Inactive isosorbide dinitrate 30 mg tablet RxNorm: 795445 Take 1 Tablet(s) Oral QD 07/08/19 21 021 Inactive Levemir FlexTouch U-100 Insulin 100 unit/mL (3 mL) subcutaneous pen RxNorm: 412825 Inject 140 Unit(s) Subcutaneous BID 07/08/19 21 021 Inactive venlafaxine 75 mg tablet RxNorm: 372010 Take 1 Tablet(s) Oral QD 07/08/19 021 Inactive acetaminophen 500 mg tablet RxNorm: 170396 Take 1 Tablet(s) Oral TID as needed for headache 06/18/19 21 Inactive acetaminophen 500 mg tablet RxNorm: 473275 Take 1 Tablet(s) Oral TID as needed for headache 06/18/19 021 Inactive Lyrica 100 mg capsule RxNorm: 422429 Take 1 Capsule(s) Oral QHS every night at bedtime 06/11/19 21 021 Inactive Lyrica 50 mg capsule RxNorm: 270741 Take 1 Capsule(s) Oral QAM every morning 06/10/19 21 021 Inactive hydrocortisone 2.5 % topical cream RxNorm: 095810 Apply to bilateral groin creases Topical BID 05/15/20 20 021 Inactive clotrimazole 1 % topical cream RxNorm: 288784 Apply to bilateral groin areas Topical BID 05/15/20 20 021 Inactive Lyrica 50 mg capsule RxNorm: 495185 Take 1 Capsule(s) Oral QAM every morning 05/14/20 20 020 Inactive Lyrica 100 mg capsule RxNorm: 858867 Take 1 Capsule(s) Oral QHS every night [...] Inactive Nystop 100,000 unit/gram topical powder RxNorm: 833818 Apply to abd folds, under breasts and L side of groin Topical BID x 14 days, then BID PRN 04/08/20 20 021 Inactive dx: yeast dermatitis Lyrica 100 mg capsule RxNorm: 150106 Take 1 Capsule(s) Oral QHS every night at bedtime 03/13/20 20 Inactive Lyrica 50 mg capsule RxNorm: 347151 Take 1 Capsule(s) Oral QAM every morning 03/13/20 Inactive ketoconazole 2 % shampoo RxNorm: 366080 Apply Topical two times a week with showers 03/11/20 20 Inactive cholecalciferol (vitamin D3) 50 mcg (2,000 unit) tablet RxNorm: 022612 Take 1 Tablet(s) Oral QD 03/11/20 20 Inactive Zetia 10 mg tablet RxNorm: 260247 Take 1 Tablet(s) Oral QD 03/07/20 20 021 Inactive Zetia 10 mg tablet RxNorm: 220967 Take 1 Tablet(s) Oral QD 03/07/20 20 Inactive Lyrica 50 mg capsule RxNorm: 425295 Take 1 Capsule(s) Oral QAM every morning 02/15/20 20 Inactive Lyrica 100 mg capsule RxNorm: 352341 Take 1 Capsule(s) Oral QHS every night at bedtime 02/15/20 20 Inactive Lyrica 100 mg capsule RxNorm: 290322 Take 1 Capsule(s) Oral QHS every night at bedtime 02/15/20 20 Inactive Lyrica 50 mg capsule RxNorm: 972852 Take 1 Capsule(s) Oral QAM every morning 02/15/20 20 020 Inactive venlafaxine ER 75 mg capsule,extended release 24 hr RxNorm: 665629 Take 3 Capsule(s) Oral QD 06/12/19 22 Active polyethylene glycol 3350 17 gram/dose oral powder RxNorm: 343987 Take 17=1 capful Gram(s) Oral BID as needed mix with 4-8oz of liquid 06/12/19 Active icosapent ethyl 1 gram capsule RxNorm: 2593530 Take 2 Capsule(s) (2 gm) Oral BID with meals 10/07/19 23 023 Inactive Okay to dispense one 2gm tab if you have that available. metoprolol succinate ER 200 mg tablet,extended release 24 hr RxNorm: 187013 Take 1 Tablet(s) Oral QD 08/12/19 23 Active loperamide 2 mg capsule RxNorm: 942941 Take 1 Capsule(s) Oral QID as needed 06/12/19 22 Active hydralazine 50 mg tablet RxNorm: 949448 Take 1 Tablet(s) Oral QID 08/12/19 23 Active Levemir FlexTouch U-100 Insulin 100 unit/mL (3 mL) subcutaneous pen RxNorm: 267506 Inject 80 Unit(s) Subcutaneous BID 07/14/19 23 023 Inactive Novolog Flexpen U-100 Insulin aspart 100 unit/mL (3 mL) subcutaneous RxNorm: 5676925 Insert 30 Unit(s) Subcutaneous TID with meals [...] CBC with Differential / Platelets CBCDIFF MPV 70893-6 10.4 fL 09/16/19 23 Unknown CBC with [...] Basic Metabolic Panel (BMP) BMP Calcium (Ca) 24226-3 9.0 mg/dL 09/16/19 Unknown Basic Metabolic Panel [...] 09/16/19 Unknown Hemoglobin A1c HEMOGLOBA Hemoglobin A1c 52582-7 11.2 %A1c 09/16/19 Unknown PDFReport PDFReport PDFReport 09/15/19 Unknown Vital Signs Date Vital 09/08/2022 Blood Pressure 1: 144/73 Code: 8480-6 Heart Rate 1: 82 bpm Code: 8867-4 Respiratory Rate: 18 bpm SpO2: 98% Temperature: 36.4 (C) / 97.5 (F) Reason For Visit No Reason For Visit data Encounters Encounter Performer Location Location Address Codes Date (09488) Home or Residence Visit Est Pt - Moderate Level, 40 mins Diagnosis: Type 2 diabetes mellitus with diabetic polyneuropathy, with long-term current use of insulin[ICD10: E11.42] Diagnosis: Hyperlipidemia associated with type 2 diabetes mellitus[ICD10: E11.69] Diagnosis: Stage 2 chronic 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[ICD10: E11.22] Diagnosis: Lower extremity edema[ICD10: R60.0] Tapan Shirley [facility] [place] [facility] [address] [place] [address] CPT-4: 46056 09/08/2022 Plan of Care Planned Activity Notes Codes Status Date Referral: [facility] WPtel: [address] , [address] [id number] [place] Referral Records Received 09/21/2022 Patient Education: Patient M edication Summary Completed 09/08/2022 Patient Education: Influenza Vaccine Completed 09/08/2022 Appointment: Tapan Shirley WPtel: [address] [facility] [address] [id number] [place] F/U 08/11/2022 Appointment: Tapan Shirley WPtel: [address] [facility] [address] [id number] [place] F/U 07/14/2022 Appointment: Tapan Shirley WPtel: [address] [facility] [address] [id number] [place] F/U 02/10/2022 Referral: [facility] WPtel: [address] [facility] [address] [id number] [place] Referral Completed 05/28/2021 Referral: General Cardiology [...] Sister Jyotsna involved in his care cell# [phone] Guardian: Don (tapan met in person 09/01/21), [...] hear back from endo within a few days. Edema Continues to have pitting 2+ edema in his feet and 1+ edema in LEs with taut skin. Would recommend his torsemide be increased, will want to check a BMP next week to ensure his electrolytes remain normal. Increase torsemide to 20mg BID (d.c once daily). . 09/08/2022
--- OUTSIDE RECORDS SUMMARY | 2022-11-10 00:38 | XMS_ITS | CCD ---
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 [employer] Name Role Phone Tapan Shirley PA-C Primary Care Provider Unavailabl e Tapan Shirley PA-C Chronic Care Management Unavaila ble Summary Purpose DataExchange Insurance Providers Payer name Policy type / Coverage type Covered alliance party ID Effective Begin Date Effective End Date [place] [id number] Unknown [place] [id number] Unknown Unknown Family history Sister Brittany Suggs [...] Unknown Snf 09/03/[address]: 8149941 Non-Smoker / No History of Smoking 09/02/[address]: 957221636 No Alcohol Consum ption 09/02/2020 Allergies, Adverse Reactions, Alerts Substance Reaction Codes Entered Date Inactivated Date Status LISINOPRIL RxNorm: 16400 02/12/2020 No Inactive Da te Active Metformin HCl Unknown 02/12/2020 No Inactive Cristiano e Active Problems Condition Codes Effective Dates Condition St atus Amputated toe of right foot ICD-10: S98. 131A ICD-9: 895.0 08/11/2022 Active Coronary artery disease invo lving [place] coronary artery of [place] heart, angina presence unspecified ICD-10: I25.10 ICD-9: [...] 112.3 07/14/2022 [facility] ICD-10: I11.9 ICD-9: 402.90 07/14/2022 [...] immunization ICD-10: Z23 ICD-9: V03.89 02/10/2022 Resolved meterman (current) use of insulin ICD-10: Z79.4 02/10 [...] Fill Instructions carvedilol 25 mg tablet RxNorm: 885673 Take 1 Tablet(s) Oral QD 08/25/19 23 024 Active pregabalin 150 mg capsule RxNorm: 877713 1 Capsule(s) Oral HS at bed time 08/18/19 23 023 Active pregabalin 100 mg capsule RxNorm: 773399 1 Capsule(s) Oral QAM every morning 08/18/19 23 023 Active carvedilol 25 mg tablet RxNorm: 390009 1 Tablet(s) Oral QD 07/28/19 23 023 Inactive lisinopril 20 mg tablet RxNorm: 501384 Give 1 Tablet(s) Oral QD 07/28/19 23 023 Inactive Lyrica 150 mg capsule RxNorm: 372376 Take 1 Capsule(s) Oral QHS every night at bedtime 07/19/19 23 023 Inactive d/c 100mg dose Diflucan 150 mg tablet RxNorm: 894150 Take 1 Tablet(s) Oral QD repeat on day 3 and 6 07/19/19 23 023 Inactive pregabalin 100 mg capsule RxNorm: 914871 Take 1 Capsule(s) Oral QAM every morning 07/19/19 23 023 Inactive Humulin R Regular U-100 Insulin 100 unit/mL injection solution RxNorm: 081052 85 Unit(s) Injection TID 07/13/19 23 023 Inactive gatifloxacin 0.5 % eye drops RxNorm: 384055 Instill 1 Drop(s) as directed TID Instill 1 drop in to affected eye(s) starting 1 day prior to surgery and continue until gone (do not exceed 4 weeks). 07/13/19 23 023 Inactive carvedilol 25 mg tablet RxNorm: 478613 2 Tablet(s) Oral BID 07/13/19 23 023 Inactive ketorolac 0.5 % eye drops RxNorm: 257335 Instill 1 Drop(s) as directed QID Instill 1 drop into affected eye(s) 4 times daily starting 1 day prior to surgery and continue until gone (do not exceed 4 weeks). 07/13/19 023 Inactive Diflucan 150 mg tablet RxNorm: 882799 Take 1 Tablet(s) Oral QD repeat on day 3 and 6 06/30/19 23 023 Inactive Accu-Chek Guide test strips RxNorm: Use 1 Test Strip QID Use 1 test strip to monitor blood glucose 4 times daily and as needed. Dx:E11.42. 06/23/19 23 023 Inactive ok to substitute with any covered alternative test strip dextromethorphan-gu aifenesin 10 mg-100 mg/5 mL oral liquid RxNorm: 518788 Take 10 Milliliter(s) Oral every 4 hours as needed for cough 06/19/19 23 023 Inactive dextromethorphan-gu aifenesin 10 mg-100 mg/5 mL oral liquid RxNorm: 875949 Take 10 Milliliter(s) Oral every 4 hours as needed for cough 06/19/19 023 Inactive Lyrica 150 mg capsule RxNorm: 063466 Take 1 Capsule(s) Oral QHS every night at bedtime 06/18/19 023 Inactive d/c 100mg dose aripiprazole 15 mg tablet RxNorm: 507517 /2 TAB (7.5MG) ORALLY DAILY (DX:MAJOR DEPRESSIVE DISORDER) 06/05/19 023 Inactive pregabalin 100 mg capsule RxNorm: 755509 1 Capsule(s) Oral QAM every morning 06/02/19 023 Inactive Banophen 50 mg capsule RxNorm: 5797610 Take 1 Capsule(s) Oral Q6H every 6 hours as needed 05/19/19 23 No Stop Date Active Novolog Flexpen U-100 Insulin aspart 100 unit/mL (3 mL) subcutaneous RxNorm: 5654989 Inject 10 Unit(s) Subcutaneous QHS every night at bedtime with nighttime snack 04/08/20 022 Inactive Novolog Flexpen U-100 Insulin aspart 100 unit/mL (3 mL) subcutaneous RxNorm: 1130077 Inject 42 Unit(s) Subcutaneous TID in addition to sliding scale 04/08/20 022 Inactive d/c 36u albuterol sulfate HFA 90 mcg/actuation aerosol inhaler RxNorm: 8781344 Take 2 Puff(s) Inhalation Q4H every four hours as needed as needed for SOB, cough, or wheezing 04/07/20 030 Active Banophen 50 mg capsule RxNorm: 8916146 Take 1 Capsule(s) Oral Q6H every 6 hours as needed 04/06/20 023 Inactive diphenhydramine 50 mg tablet RxNorm: 4294266 Take 1 Tablet(s) Oral Q6H every 6 hours as needed 04/06/20 022 Inactive diphenhydramine 50 mg tablet RxNorm: 1451708 1 Tablet(s) Oral Q6H every 6 hours as needed 04/06/20 22 022 Inactive Abilify 15 mg tablet RxNorm: 582981 /2 Tablet(s) Oral QD 03/10/20 22 023 Inactive Shingrix (PF) 50 mcg/0.5 mL intramuscular suspension, kit RxNorm: 0144619 Administer 1/2 Milliliter(s) Intramuscular QD one time shingrix step 2 ( step 1 given 11/04/21) WITH needle - Nursing please administer upon arrival and once administered post a bridge message with date of administration, carpet binder, expiration date, and lot# so we can update [facility] 02/18/20 22 022 Inactive dispense with needle Shingrix (PF) 50 mcg/0.5 mL intramuscular suspension, kit RxNorm: 7714466 Administer 1/2 Milliliter(s) Intramuscular QD one time shingrix step 2 ( step 1 given 11/04/21) WITH needle - Nursing please administer upon arrival and once administered post a bridge message with date of administration, carpet binder, expiration date, and lot# so we can update [facility] 02/18/20 22 022 Inactive dispense with needle acetaminophen 500 mg tablet RxNorm: 143676 Take 1 Tablet(s) Oral TID 01/08/20 22 023 Active d/c PRN order polyethylene glycol 3350 17 gram/dose oral powder RxNorm: 176572 Take 17=1 capful Gram(s) Oral QD mix with 4-8oz of liquid 01/08/20 22 023 Active take this in addition to BID prn order Lyrica 100 mg capsule RxNorm: 474856 Take 1 Capsule(s) Oral QAM every morning 01/08/20 22 022 Inactive d/c 50mg dose Lyrica 150 mg capsule RxNorm: 476419 Take 1 Capsule(s) Oral QHS every night at bedtime 01/08/20 22 023 Inactive d/c 100mg dose Abilify 5 mg tablet RxNorm: 212431 Take 1 Tablet(s) Oral QD take 1 tab po QD #30 refill 5 dx: MDD 12/12/19 22 022 Inactive Abilify 5 mg tablet RxNorm: 704847 Take 1 Tablet(s) Oral QD take 1 tab po QD #30 refill 5 dx: MDD 12/12/19 22 022 Inactive chlorthalidone 25 mg tablet RxNorm: 038725 Take 1 Tablet(s) Oral QAM every morning 12/10/19 22 Active Novolog Flexpen U-100 Insulin aspart 100 unit/mL (3 mL) subcutaneous RxNorm: 9704348 Inject 42 Unit(s) Subcutaneous TID in addition to sliding scale 12/10/19 22 Inactive d/c 36u pregabalin 50 mg capsule RxNorm: 916220 Take 1 Capsule(s) Oral QAM every morning 11/12/19 22 Inactive tetanus-diphtheria toxoids-Td 2 Lf unit-2 Lf unit/0.5 mL IM suspension RxNorm: 139 Take 0.5 Miscellaneous Intramuscular 11/12/19 Inactive need tdap - nursing to administer upon arrival pregabalin 50 mg capsule RxNorm: 432276 Take 1 Capsule(s) Oral QAM every morning 10/16/19 022 Inactive pregabalin 50 mg capsule RxNorm: 495070 Take 1 Capsule(s) Oral QAM every morning 10/16/19 22 022 Inactive pregabalin 50 mg capsule RxNorm: 082327 1 Capsule(s) Oral QAM every morning 10/15/19 022 Inactive Shingrix (PF) 50 mcg/0.5 mL intramuscular suspension, kit RxNorm: 0999588 Administer 1/2 Milliliter(s) Intramuscular one time Nursing please administer upon arrival and once administered post a bridge message with date of administration, carpet binder, expiration date, and lot# so we can update [facility]. 10/09/19 22 022 Inactive shingrix step 1 Shingrix (PF) 50 mcg/0.5 mL intramuscular suspension, kit RxNorm: 6036408 Administer 1/2 Milliliter(s) Intramuscular one time Nursing please administer upon arrival and once administered post a bridge message with date of administration, carpet binder, expiration date, and lot# so we can update [facility]. 10/09/19 22 022 Inactive shingrix step 1 cholecalciferol (vitamin D3) 1,250 mcg (50,000 unit) capsule RxNorm: 338578 Take 1 Capsule(s) Oral QW once a [...] aspart 100 unit/mL (3 mL) subcutaneous RxNorm: 7457595 Inject 10 Unit(s) Subcutaneous QHS every night at bedtime with nighttime snack 10/08/19 22 Inactive Shingrix (PF) 50 mcg/0.5 mL intramuscular suspension, kit RxNorm: 0089604 ADMINISTER 2-DOSE SERIES PER CDC GUIDELINES 10/08/19 22 Active Shingrix (PF) 50 mcg/0.5 mL intramuscular suspension, kit RxNorm: 1562790 ADMINISTER 2-DOSE SERIES PER CDC GUIDELINES 10/08/19 22 Inactive Novolog Flexpen U-100 Insulin aspart 100 unit/mL (3 mL) subcutaneous RxNorm: 2278564 Inject 36 Unit(s) Subcutaneous TID in addition to sliding scale 10/08/19 22 Inactive Novofine Autocover 30 gauge x 1/3 needle RxNorm: Use 1 Miscellaneous UD as directed Use 1 needle as directed to administer insulin 5 times a day Dx:E11.42. 10/03/19 22 Inactive ok to substitute with any covered alternative pen needle benzoyl peroxide 10 % topical cleanser RxNorm: 990259 Apply 1 Application Topical QD apply to face, wash rinse and dry once daily (may change to QOD if drying) 08/19/19 22 Inactive (%covered by insurance) #60ml refill 11 dx: acne benzoyl peroxide 10 % topical cleanser RxNorm: 661279 Apply 1 Application Topical QD apply to face, wash rinse and dry once daily (may change to QOD if drying) 08/19/19 22 022 Inactive (%covered by insurance) #60ml refill 11 dx: acne benzoyl peroxide 10 % topical cleanser RxNorm: 452442 Apply 1 Application Topical QD apply to face, wash rinse and dry once daily (may change to QOD if drying) 08/19/19 22 022 Inactive (%covered by insurance) #60ml refill 11 dx: acne Lyrica 50 mg capsule RxNorm: 829572 Take 1 Capsule(s) Oral QAM every morning Take 1 capsule by mouth once daily 08/19/19 22 022 Inactive benzoyl peroxide 10 % topical cleanser RxNorm: 227107 Apply 1 Application Topical QD apply to face, wash rinse and dry once daily (may change to QOD if drying) 08/19/19 22 022 Inactive (%covered by insurance) #60ml refill 11 dx: acne Lyrica 100 mg capsule RxNorm: 008580 Take 1 Capsule(s) Oral QHS every night at bedtime Take 1 capsule by mouth once daily at bedtime 08/19/19 22 022 Inactive Lyrica 100 mg capsule RxNorm: 912581 Take 1 Capsule(s) Oral QHS every night at bedtime Take 1 capsule by mouth once daily at bedtime 08/16/19 22 022 Inactive Lyrica 50 mg capsule RxNorm: 299815 Take 1 Capsule(s) Oral QAM every morning Take 1 capsule by mouth once daily 08/16/19 Inactive Levemir FlexTouch U-100 Insulin 100 unit/mL (3 mL) subcutaneous pen RxNorm: 084194 Inject 86 Unit(s) Subcutaneous BID 08/05/19 22 022 Inactive d/c 83units BID Lyrica 100 mg capsule RxNorm: 822895 Take 1 Capsule(s) Oral QHS every night at bedtime Take 1 capsule by mouth once daily at bedtime 07/14/19 22 022 Inactive Lyrica 50 mg capsule RxNorm: 133952 Take 1 Capsule(s) Oral QAM every morning Take 1 capsule by mouth once daily 07/14/19 Inactive Levemir FlexTouch U-100 Insulin 100 unit/mL (3 mL) subcutaneous pen RxNorm: 663251 Inject 83 Unit(s) Subcutaneous BID 07/08/19 Inactive [...] 30 mg tablet,extended release 24 hr RxNorm: 747675 Take 1 Tablet(s) Oral QD 05/05/20 No Stop Date Active hydralazine 50 mg tablet RxNorm: 646242 Take 1 Tablet(s) Oral QID 12/20 Inactive venlafaxine ER 225 mg tablet,extended release 24 hr RxNorm: 995037 Take 1 Tablet(s) Oral QD 05/05/20 21 Inactive venlafaxine ER 225 mg tablet,extended release 24 hr RxNorm: 778567 Take 1 Tablet(s) Oral QD 05/05/20 022 Inactive hydralazine 50 mg tablet RxNorm: 524533 Take 1 Tablet(s) Oral QID 05/05/20 Inactive aspirin 81 mg tablet,delayed release RxNorm: 276972 Take 1 Tablet(s) Oral QD 03/31/20 Inactive Zetia 10 mg tablet RxNorm: 925701 Take 1 Tablet(s) Oral QD 03/31/20 Inactive Vitamin D2 1,250 mcg (50,000 unit) capsule RxNorm: 7632100 Take 1 Capsule(s) Oral QW once a week x 12 weeks 03/31/20 Inactive Vitamin D2 1,250 mcg (50,000 unit) capsule RxNorm: 4041491 Take 1 Capsule(s) Oral QW once a week 03/31/20 Inactive Zetia 10 mg tablet RxNorm: 080411 Take 1 Tablet(s) Oral QD 03/31/20 Inactive hydralazine 25 mg tablet RxNorm: 581331 Take 1 Tablet(s) Oral QID 03/31/20 Inactive hydralazine 25 mg tablet RxNorm: 030310 Take 1 Tablet(s) Oral QID 03/31/20 Inactive hydralazine 10 mg tablet RxNorm: 596200 Take 1 Tablet(s) Oral QID 03/03/20 Inactive cephalexin 500 mg tablet RxNorm: 107455 Take 1 Tablet(s) Oral QID 02/27/20 Inactive cephalexin 500 mg tablet RxNorm: 773393 Take 1 Tablet(s) Oral QID 02/27/20 Inactive lisinopril 40 mg tablet RxNorm: 033492 Take 1 Tablet(s) Oral QD 02/11/20 023 Inactive Eliquis 5 mg tablet RxNorm: 2090609 Take 1 Tablet(s) Oral BID 01/05/20 21 022 Inactive Eliquis 5 mg tablet RxNorm: 4390666 Take 2 Tablet(s) Oral QD 01/01/20 21 021 Inactive Lyrica 50 mg capsule RxNorm: 619224 Take 1 Capsule(s) Oral QAM every morning 12/24/19 21 021 Inactive Lyrica 100 mg capsule RxNorm: 114365 Take 1 Capsule(s) Oral QHS every night at bedtime 12/24/19 021 Inactive clotrimazole 1 % topical cream RxNorm: 116296 Apply to right foot and toes Topical BID 12/04/19 21 023 Inactive metoprolol succinate ER 200 mg tablet,extended release 24 hr RxNorm: 645480 Take 1 Tablet(s) Oral QD 12/04/19 023 Inactive ciprofloxacin 500 mg tablet RxNorm: 162227 Take 1 Tablet(s) Oral QD 11/30/19 021 Inactive DX ofloxacin otic drops Accu-Chek Guide test strips RxNorm: USE 1 TO CHECK GLUCOSE 4 TIMES DAILY AND NEEDED 11/15/19 21 023 Inactive Blood Glucose Test strips RxNorm: Use 1 Test Strip QID at PRN 11/05/19 21 023 Inactive E11.42 lisinopril 30 mg tablet RxNorm: 418470 Take 1 Tablet(s) Oral QD 10/30/19 021 Inactive lisinopril 20 mg tablet RxNorm: 573223 Take 1 Tablet(s) Oral QD 10/23/19 021 Inactive lisinopril 20 mg tablet RxNorm: 279742 Take 1 Tablet(s) Oral QD 10/23/19 21 021 Inactive lisinopril 10 mg tablet RxNorm: 307347 Take 1 Tablet(s) Oral QD 10/02/19 21 021 Inactive icosapent ethyl 1 gram capsule RxNorm: 9975049 Take 2 Capsule(s) (2 gm) Oral BID with meals 09/12/19 Inactive Okay to dispense one 2gm tab if you have that available. icosapent ethyl 1 gram capsule RxNorm: 6315840 Take 2 Capsule(s) Oral BID 09/12/19 Inactive Okay to dispense one 2gm tab if you have that available. amlodipine 10 mg tablet RxNorm: 238861 Take 1 Tablet(s) Oral QD 09/04/19 Inactive aspirin 81 mg tablet,delayed release RxNorm: 102906 Take 1 Tablet(s) Oral QD 09/04/19 Inactive Levemir FlexTouch U-100 Insulin 100 unit/mL (3 mL) subcutaneous pen RxNorm: 950747 Inject 150 Unit(s) Subcutaneous BID 09/04/19 Inactive venlafaxine ER 150 mg tablet,extended release 24 hr RxNorm: 125824 Take 1 Tablet(s) Oral QD 09/04/19 Inactive clotrimazole-betame thasone 1 %-0.05 % topical cream RxNorm: 353901 Apply to rash on red area on left abdomen/chest Topical BID 08/10/19 Inactive amlodipine 5 mg tablet RxNorm: 468937 Take 1 Tablet(s) Oral QD 07/31/19 Inactive cephalexin 500 mg tablet RxNorm: 087992 Take 1 Tablet(s) Oral BID BID - Twice Daily 07/31/19 021 Inactive Start 08/01/20 pantoprazole 40 mg tablet,delayed release RxNorm: 493261 Take 1 Tablet(s) Oral QAM every morning 07/08/19 022 Inactive senna 8.6 mg tablet RxNorm: 241313 Take 1 Tablet(s) Oral QD 07/08/19 022 Inactive pravastatin 80 mg tablet RxNorm: 802464 Take 1 Tablet(s) Oral QHS every night at bedtime 07/08/19 022 Inactive carbamazepine 200 mg tablet RxNorm: 592621 Take 1 Tablet(s) Oral BID 07/08/19 21 022 Inactive torsemide 20 mg tablet RxNorm: 480046 Take 1 Tablet(s) Oral QD 07/08/19 21 023 Inactive clopidogrel 75 mg tablet RxNorm: 648214 Take 1 Tablet(s) Oral QD 07/08/19 021 Inactive Blood Glucose Test strips RxNorm: Use 1 Test Strip QID at PRN 07/08/19 Inactive E11.42 Novolog Flexpen U-100 Insulin aspart 100 unit/mL (3 mL) subcutaneous RxNorm: 4284883 Administer per sliding scale Milliliter(s) Subcutaneous TID 151-200: 10 u; 201-250: 20 u; 251-300: 30 u; 301-350: 40 u; 351-400: 50 u. 07/08/19 Inactive lisinopril 5 mg tablet RxNorm: 267719 Take 1 Tablet(s) Oral QD 07/08/19 021 Inactive Novolog Flexpen U-100 Insulin aspart 100 unit/mL (3 mL) subcutaneous RxNorm: 6373729 Inject 85 Unit(s) Subcutaneous TID 07/08/19 022 Inactive clotrimazole 1 % topical cream RxNorm: 934280 Apply to bilateral groin areas Topical BID 07/08/19 022 Inactive metoprolol succinate ER 200 mg tablet,extended release 24 hr RxNorm: 425047 Take 1 Tablet(s) Oral QD 07/08/19 Inactive Vitamin D3 25 mcg (1,000 unit) tablet RxNorm: 080328 Take 1 Tablet(s) Oral QD 07/08/19 021 Inactive isosorbide dinitrate 30 mg tablet RxNorm: 806050 Take 1 Tablet(s) Oral QD 07/08/19 21 021 Inactive Levemir FlexTouch U-100 Insulin 100 unit/mL (3 mL) subcutaneous pen RxNorm: 036897 Inject 140 Unit(s) Subcutaneous BID 07/08/19 21 021 Inactive venlafaxine 75 mg tablet RxNorm: 536777 Take 1 Tablet(s) Oral QD 07/08/19 21 021 Inactive acetaminophen 500 mg tablet RxNorm: 316790 Take 1 Tablet(s) Oral TID as needed for headache 06/18/19 21 021 Inactive acetaminophen 500 mg tablet RxNorm: 276866 Take 1 Tablet(s) Oral TID as needed for headache 06/18/19 21 021 Inactive Lyrica 100 mg capsule RxNorm: 957350 Take 1 Capsule(s) Oral QHS every night at bedtime 06/11/19 21 021 Inactive Lyrica 50 mg capsule RxNorm: 148848 Take 1 Capsule(s) Oral QAM every morning 06/10/19 21 021 Inactive hydrocortisone 2.5 % topical cream RxNorm: 850896 Apply to bilateral groin creases Topical BID 05/15/20 20 021 Inactive clotrimazole 1 % topical cream RxNorm: 014906 Apply to bilateral groin areas Topical BID 05/15/20 20 021 Inactive Lyrica 50 mg capsule RxNorm: 008070 Take 1 Capsule(s) Oral QAM every morning 05/14/20 20 020 Inactive Lyrica 100 mg capsule RxNorm: 419821 Take 1 Capsule(s) Oral QHS every night [...] Inactive Nystop 100,000 unit/gram topical powder RxNorm: 294137 Apply to abd folds, under breasts and L side of groin Topical BID x 14 days, then BID PRN 04/08/20 20 Inactive dx: yeast dermatitis Lyrica 100 mg capsule RxNorm: 503760 Take 1 Capsule(s) Oral QHS every night at bedtime 03/13/20 Inactive Lyrica 50 mg capsule RxNorm: 500246 Take 1 Capsule(s) Oral QAM every morning 03/13/20 Inactive ketoconazole 2 % shampoo RxNorm: 375719 Apply Topical two times a week with showers 03/11/20 Inactive cholecalciferol (vitamin D3) 50 mcg (2,000 unit) tablet RxNorm: 323932 Take 1 Tablet(s) Oral QD 03/11/20 Inactive Zetia 10 mg tablet RxNorm: 063527 Take 1 Tablet(s) Oral QD 03/07/20 20 Inactive Zetia 10 mg tablet RxNorm: 763494 Take 1 Tablet(s) Oral QD 03/07/20 20 Inactive Lyrica 50 mg capsule RxNorm: 538255 Take 1 Capsule(s) Oral QAM every morning 02/15/20 20 Inactive Lyrica 100 mg capsule RxNorm: 758221 Take 1 Capsule(s) Oral QHS every night at bedtime 02/15/20 Inactive Lyrica 100 mg capsule RxNorm: 082763 Take 1 Capsule(s) Oral QHS every night at bedtime 02/15/20 20 Inactive Lyrica 50 mg capsule RxNorm: 986545 Take 1 Capsule(s) Oral QAM every morning 02/15/20 20 Inactive venlafaxine ER 75 mg capsule,extended release 24 hr RxNorm: 195604 Take 3 Capsule(s) Oral QD 06/12/19 Active polyethylene glycol 3350 17 gram/dose oral powder RxNorm: 959264 Take 17=1 capful Gram(s) Oral BID as needed mix with 4-8oz of liquid 06/12/19 22 Active icosapent ethyl 1 gram capsule RxNorm: 2437049 Take 2 Capsule(s) (2 gm) Oral BID with meals 10/07/19 23 023 Inactive Okay to dispense one 2gm tab if you have that available. metoprolol succinate ER 200 mg tablet,extended release 24 hr RxNorm: 052519 Take 1 Tablet(s) Oral QD 08/12/19 23 Active loperamide 2 mg capsule RxNorm: 294052 Take 1 Capsule(s) Oral QID as needed 06/12/19 22 Active hydralazine 50 mg tablet RxNorm: 005043 Take 1 Tablet(s) Oral QID 08/12/19 23 Active Levemir FlexTouch U-100 Insulin 100 unit/mL (3 mL) subcutaneous pen RxNorm: 480581 Inject 80 Unit(s) Subcutaneous BID 07/14/19 23 023 Inactive Novolog Flexpen U-100 Insulin aspart 100 unit/mL (3 mL) subcutaneous RxNorm: 7656347 Insert 30 Unit(s) Subcutaneous TID with meals [...] Codes Status Date Referral: [facility] WPtel: [phone], [address] [id number] [place] Referral Records Received 09/21/2022 Referral: [facility] WPtel: [phone] [id number] [place] Referral Completed 05/28/2021 Referral: General Cardiology [...] Sister Jyotsna involved in his care cell# [phone] Guardian: Don (tapan met in person 09/01/21), now has Lexii (same group as don)Lab Schedule: * 10/06/2022
--- OUTSIDE RECORDS SUMMARY | 2022-11-10 00:39 | XMS_ITS | CCD ---
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 Learning And Development Analyst Name Role Phone Tapan Shirley PA-C Primary Care Provider Unavailabl e Tapan Shirley PA-C Chronic Care Management Unavaila ble Summary Purpose DataExchange Insurance Providers Payer name Policy type / Coverage type Covered libertarian ID Effective Begin Date Effective End Date [place] [id number] [place] [id number] Unknown Unknown Family history Sister Brittany Suggs [...] Usp 09/03/[address]: 5615815 Non-Smoker / No History of Smoking 09/02/[address]: 357796303 No Alcohol Consum ption 09/02/2020 Allergies, Adverse Reactions, Alerts Substance Reaction Codes Entered Date Inactivated Date Status LISINOPRIL RxNorm: 21828 02/12/2020 No Inactive Da te Active Metformin [...] 08/11/2022 Active Coronary artery disease invo lving craig coronary [...] immunization ICD-10: Z23 ICD-9: V03.89 02/10/2022 Resolved nursing home (current) use of insulin ICD-10: [...] 024 Active torsemide 20 mg tablet RxNorm: 064759 Take 1 Tablet(s) Oral BID 09/09/19 23 024 Active d/c once daily dosing carvedilol 25 mg tablet RxNorm: 151926 Take 1 Tablet(s) Oral QD 08/25/19 23 024 Active pregabalin 150 mg capsule RxNorm: 348428 1 Capsule(s) Oral HS at bed time 08/18/19 23 023 Active pregabalin 100 mg capsule RxNorm: 595543 1 Capsule(s) Oral QAM every morning 08/18/19 23 023 Active lisinopril 20 mg tablet RxNorm: 617901 Give 1 Tablet(s) Oral QD 07/28/19 23 023 Inactive carvedilol 25 mg tablet RxNorm: 705209 1 Tablet(s) Oral QD 07/28/19 23 023 Inactive Lyrica 150 mg capsule RxNorm: 614206 Take 1 Capsule(s) Oral QHS every night at bedtime 07/19/19 023 Inactive d/c 100mg dose Diflucan 150 mg tablet RxNorm: 271872 Take 1 Tablet(s) Oral QD repeat on day 3 and 6 07/19/19 23 023 Inactive pregabalin 100 mg capsule RxNorm: 755085 Take 1 Capsule(s) Oral QAM every morning 07/19/19 023 Inactive Humulin R Regular U-100 Insulin 100 unit/mL injection solution RxNorm: 163087 85 Unit(s) Injection TID 07/13/19 023 Inactive gatifloxacin 0.5 % eye drops RxNorm: 978384 Instill 1 Drop(s) as directed TID Instill 1 drop in to affected eye(s) starting 1 day prior to surgery and continue until gone (do not exceed 4 weeks). 07/13/19 23 023 Inactive carvedilol 25 mg tablet RxNorm: 915098 2 Tablet(s) Oral BID 07/13/19 023 Inactive ketorolac 0.5 % eye drops RxNorm: 824573 Instill 1 Drop(s) as directed QID Instill 1 drop into affected eye(s) 4 times daily starting 1 day prior to surgery and continue until gone (do not exceed 4 weeks). 07/13/19 23 023 Inactive Diflucan 150 mg tablet RxNorm: 856541 Take 1 Tablet(s) Oral QD repeat on day 3 and 6 06/30/19 23 023 Inactive Accu-Chek Guide test strips RxNorm: Use 1 Test Strip QID Use 1 test strip to monitor blood glucose 4 times daily and as needed. Dx:E11.42. 06/23/19 23 023 Inactive ok to substitute with any covered alternative test strip dextromethorphan-gu aifenesin 10 mg-100 mg/5 mL oral liquid RxNorm: 396448 Take 10 Milliliter(s) Oral every 4 hours as needed for cough 06/19/19 23 023 Inactive dextromethorphan-gu aifenesin 10 mg-100 mg/5 mL oral liquid RxNorm: 409835 Take 10 Milliliter(s) Oral every 4 hours as needed for cough 06/19/19 023 Inactive Lyrica 150 mg capsule RxNorm: 107585 Take 1 Capsule(s) Oral QHS every night at bedtime 06/18/19 023 Inactive d/c 100mg dose aripiprazole 15 mg tablet RxNorm: 632593 /2 TAB (7.5MG) ORALLY DAILY (DX:MAJOR DEPRESSIVE DISORDER) 06/05/19 23 023 Inactive pregabalin 100 mg capsule RxNorm: 929924 1 Capsule(s) Oral QAM every morning 06/02/19 23 023 Inactive Banophen 50 mg capsule RxNorm: 3889307 Take 1 Capsule(s) Oral Q6H every 6 hours as needed 05/19/19 23 No Stop Date Active Novolog Flexpen U-100 Insulin aspart 100 unit/mL (3 mL) subcutaneous RxNorm: 0151372 Inject 10 Unit(s) Subcutaneous QHS every night at bedtime with nighttime snack 04/08/20 022 Inactive Novolog Flexpen U-100 Insulin aspart 100 unit/mL (3 mL) subcutaneous RxNorm: 9927976 Inject 42 Unit(s) Subcutaneous TID in addition to sliding scale 04/08/20 022 Inactive d/c 36u albuterol sulfate HFA 90 mcg/actuation aerosol inhaler RxNorm: 9205059 Take 2 Puff(s) Inhalation Q4H every four hours as needed as needed for SOB, cough, or wheezing 04/07/20 22 030 Active Banophen 50 mg capsule RxNorm: 5150217 Take 1 Capsule(s) Oral Q6H every 6 hours as needed 04/06/20 22 023 Inactive diphenhydramine 50 mg tablet RxNorm: 3211769 Take 1 Tablet(s) Oral Q6H every 6 hours as needed 04/06/20 22 022 Inactive diphenhydramine 50 mg tablet RxNorm: 8441118 1 Tablet(s) Oral Q6H every 6 hours as needed 04/06/20 22 022 Inactive Abilify 15 mg tablet RxNorm: 597746 1/2 Tablet(s) Oral QD 03/10/20 22 023 Inactive Shingrix (PF) 50 mcg/0.5 mL intramuscular suspension, kit RxNorm: 5541863 Administer 1/2 Milliliter(s) Intramuscular QD one time shingrix step 2 ( step 1 given 11/04/21) WITH needle - Nursing please administer upon arrival and once administered post a bridge message with date of administration, litigation secretary, expiration date, and lot# so we can update [facility] 02/18/20 22 022 Inactive dispense with needle Shingrix (PF) 50 mcg/0.5 mL intramuscular suspension, kit RxNorm: 9939954 Administer 1/2 Milliliter(s) Intramuscular QD one time shingrix step 2 ( step 1 given 11/04/21) WITH needle - Nursing please administer upon arrival and once administered post a bridge message with date of administration, litigation secretary, expiration date, and lot# so we can update [facility] 02/18/20 22 022 Inactive dispense with needle acetaminophen 500 mg tablet RxNorm: 663135 Take 1 Tablet(s) Oral TID 01/08/20 22 023 Active d/c PRN order polyethylene glycol 3350 17 gram/dose oral powder RxNorm: 121247 Take 17=1 capful Gram(s) Oral QD mix with 4-8oz of liquid 01/08/20 22 023 Active take this in addition to BID prn order Lyrica 100 mg capsule RxNorm: 100882 Take 1 Capsule(s) Oral QAM every morning 01/08/20 22 022 Inactive d/c 50mg dose Lyrica 150 mg capsule RxNorm: 528439 Take 1 Capsule(s) Oral QHS every night at bedtime 01/08/20 22 023 Inactive d/c 100mg dose Abilify 5 mg tablet RxNorm: 804570 Take 1 Tablet(s) Oral QD take 1 tab po QD #30 refill 5 dx: MDD 12/12/19 22 022 Inactive Abilify 5 mg tablet RxNorm: 509824 Take 1 Tablet(s) Oral QD take 1 tab po QD #30 refill 5 dx: MDD 12/12/19 22 022 Inactive chlorthalidone 25 mg tablet RxNorm: 141306 Take 1 Tablet(s) Oral QAM every morning 12/10/19 22 023 Active Novolog Flexpen U-100 Insulin aspart 100 unit/mL (3 mL) subcutaneous RxNorm: 0682137 Inject 42 Unit(s) Subcutaneous TID in addition to sliding scale 12/10/19 22 022 Inactive d/c 36u pregabalin 50 mg capsule RxNorm: 695055 Take 1 Capsule(s) Oral QAM every morning 11/12/19 22 022 Inactive tetanus-diphtheria toxoids-Td 2 Lf unit-2 Lf unit/0.5 mL IM suspension RxNorm: 139 Take 0.5 Miscellaneous Intramuscular 11/12/19 22 022 Inactive need tdap - nursing to administer upon arrival pregabalin 50 mg capsule RxNorm: 752705 Take 1 Capsule(s) Oral QAM every morning 10/16/19 22 022 Inactive pregabalin 50 mg capsule RxNorm: 884524 Take 1 Capsule(s) Oral QAM every morning 10/16/19 22 022 Inactive pregabalin 50 mg capsule RxNorm: 474935 1 Capsule(s) Oral QAM every morning 10/15/19 22 022 Inactive Shingrix (PF) 50 mcg/0.5 mL intramuscular suspension, kit RxNorm: 8945608 Administer 1/2 Milliliter(s) Intramuscular one time Nursing please administer upon arrival and once administered post a bridge message with date of administration, litigation secretary, expiration date, and lot# so we can update [facility]. 10/09/19 22 022 Inactive shingrix step 1 Shingrix (PF) 50 mcg/0.5 mL intramuscular suspension, kit RxNorm: 1238915 Administer 1/2 Milliliter(s) Intramuscular one time Nursing please administer upon arrival and once administered post a bridge message with date of administration, litigation secretary, expiration date, and lot# so we can update [facility]. 10/09/19 22 Inactive shingrix step 1 cholecalciferol (vitamin D3) 1,250 mcg (50,000 unit) capsule RxNorm: 791185 Take 1 Capsule(s) Oral QW once a [...] aspart 100 unit/mL (3 mL) subcutaneous RxNorm: 1397036 Inject 10 Unit(s) Subcutaneous QHS every night at bedtime with nighttime snack 10/08/19 22 Inactive Shingrix (PF) 50 mcg/0.5 mL intramuscular suspension, kit RxNorm: 5679360 ADMINISTER 2-DOSE SERIES PER CDC GUIDELINES 10/08/19 22 022 Active Shingrix (PF) 50 mcg/0.5 mL intramuscular suspension, kit RxNorm: 4580397 ADMINISTER 2-DOSE SERIES PER CDC GUIDELINES 10/08/19 22 022 Inactive Novolog Flexpen U-100 Insulin aspart 100 unit/mL (3 mL) subcutaneous RxNorm: 5709936 Inject 36 Unit(s) Subcutaneous TID in addition to sliding scale 10/08/19 22 Inactive Novofine Autocover 30 gauge x 1/3 needle RxNorm: Use 1 Miscellaneous UD as directed Use 1 needle as directed to administer insulin 5 times a day Dx:E11.42. 10/03/19 22 Inactive ok to substitute with any covered alternative pen needle benzoyl peroxide 10 % topical cleanser RxNorm: 263184 Apply 1 Application Topical QD apply to face, wash rinse and dry once daily (may change to QOD if drying) 08/19/19 22 022 Inactive (%covered by insurance) #60ml refill 11 dx: acne benzoyl peroxide 10 % topical cleanser RxNorm: 202870 Apply 1 Application Topical QD apply to face, wash rinse and dry once daily (may change to QOD if drying) 08/19/19 22 022 Inactive (%covered by insurance) #60ml refill 11 dx: acne benzoyl peroxide 10 % topical cleanser RxNorm: 339232 Apply 1 Application Topical QD apply to face, wash rinse and dry once daily (may change to QOD if drying) 08/19/19 022 Inactive (%covered by insurance) #60ml refill 11 dx: acne Lyrica 50 mg capsule RxNorm: 282995 Take 1 Capsule(s) Oral QAM every morning Take 1 capsule by mouth once daily 08/19/19 Inactive benzoyl peroxide 10 % topical cleanser RxNorm: 496205 Apply 1 Application Topical QD apply to face, wash rinse and dry once daily (may change to QOD if drying) 08/19/19 022 Inactive (%covered by insurance) #60ml refill 11 dx: acne Lyrica 100 mg capsule RxNorm: 797701 Take 1 Capsule(s) Oral QHS every night at bedtime Take 1 capsule by mouth once daily at bedtime 08/19/19 22 Inactive Lyrica 100 mg capsule RxNorm: 649989 Take 1 Capsule(s) Oral QHS every night at bedtime Take 1 capsule by mouth once daily at bedtime 08/16/19 Inactive Lyrica 50 mg capsule RxNorm: 062325 Take 1 Capsule(s) Oral QAM every morning Take 1 capsule by mouth once daily 08/16/19 22 Inactive Levemir FlexTouch U-100 Insulin 100 unit/mL (3 mL) subcutaneous pen RxNorm: 642253 Inject 86 Unit(s) Subcutaneous BID 08/05/19 22 022 Inactive d/c 83units BID Lyrica 100 mg capsule RxNorm: 020597 Take 1 Capsule(s) Oral QHS every night at bedtime Take 1 capsule by mouth once daily at bedtime 07/14/19 22 022 Inactive Lyrica 50 mg capsule RxNorm: 545898 Take 1 Capsule(s) Oral QAM every morning Take 1 capsule by mouth once daily 07/14/19 22 022 Inactive Levemir FlexTouch U-100 Insulin 100 unit/mL (3 mL) subcutaneous pen RxNorm: 004016 Inject 83 Unit(s) Subcutaneous BID 07/08/19 22 [...] 30 mg tablet,extended release 24 hr RxNorm: 468433 Take 1 Tablet(s) Oral QD 05/05/20 No Stop Date Active hydralazine 50 mg tablet RxNorm: 119610 Take 1 Tablet(s) Oral QID 05/05/20 022 Inactive venlafaxine ER 225 mg tablet,extended release 24 hr RxNorm: 682832 Take 1 Tablet(s) Oral QD 05/05/20 Inactive venlafaxine ER 225 mg tablet,extended release 24 hr RxNorm: 265641 Take 1 Tablet(s) Oral QD 05/05/20 022 Inactive hydralazine 50 mg tablet RxNorm: 518903 Take 1 Tablet(s) Oral QID 05/05/20 Inactive aspirin 81 mg tablet,delayed release RxNorm: 899342 Take 1 Tablet(s) Oral QD 03/31/20 022 Inactive Zetia 10 mg tablet RxNorm: 507193 Take 1 Tablet(s) Oral QD 03/31/20 Inactive Vitamin D2 1,250 mcg (50,000 unit) capsule RxNorm: 1241878 Take 1 Capsule(s) Oral QW once a week x 12 weeks 03/31/20 Inactive Vitamin D2 1,250 mcg (50,000 unit) capsule RxNorm: 0446121 Take 1 Capsule(s) Oral QW once a week 03/31/20 Inactive Zetia 10 mg tablet RxNorm: 038716 Take 1 Tablet(s) Oral QD 03/31/20 Inactive hydralazine 25 mg tablet RxNorm: 551243 Take 1 Tablet(s) Oral QID 03/31/20 Inactive hydralazine 25 mg tablet RxNorm: 724069 Take 1 Tablet(s) Oral QID 03/31/20 021 Inactive hydralazine 10 mg tablet RxNorm: 969738 Take 1 Tablet(s) Oral QID 03/03/20 021 Inactive cephalexin 500 mg tablet RxNorm: 224340 Take 1 Tablet(s) Oral QID 02/27/20 021 Inactive cephalexin 500 mg tablet RxNorm: 518470 Take 1 Tablet(s) Oral QID 02/27/20 021 Inactive lisinopril 40 mg tablet RxNorm: 688277 Take 1 Tablet(s) Oral QD 02/11/20 023 Inactive Eliquis 5 mg tablet RxNorm: 5605057 Take 1 Tablet(s) Oral BID 01/05/20 022 Inactive Eliquis 5 mg tablet RxNorm: 5116908 Take 2 Tablet(s) Oral QD 01/01/20 021 Inactive Lyrica 50 mg capsule RxNorm: 866511 Take 1 Capsule(s) Oral QAM every morning 12/24/19 021 Inactive Lyrica 100 mg capsule RxNorm: 713088 Take 1 Capsule(s) Oral QHS every night at bedtime 12/24/19 021 Inactive clotrimazole 1 % topical cream RxNorm: 667698 Apply to right foot and toes Topical BID 12/04/19 21 023 Inactive metoprolol succinate ER 200 mg tablet,extended release 24 hr RxNorm: 527869 Take 1 Tablet(s) Oral QD 12/04/19 023 Inactive ciprofloxacin 500 mg tablet RxNorm: 886117 Take 1 Tablet(s) Oral QD 11/30/19 021 Inactive DX ofloxacin otic drops Accu-Chek Guide test strips RxNorm: USE 1 TO CHECK GLUCOSE 4 TIMES DAILY AND NEEDED 11/15/19 21 023 Inactive Blood Glucose Test strips RxNorm: Use 1 Test Strip QID at PRN 11/05/19 21 023 Inactive E11.42 lisinopril 30 mg tablet RxNorm: 221986 Take 1 Tablet(s) Oral QD 10/30/19 021 Inactive lisinopril 20 mg tablet RxNorm: 387918 Take 1 Tablet(s) Oral QD 10/23/19 21 021 Inactive lisinopril 20 mg tablet RxNorm: 655075 Take 1 Tablet(s) Oral QD 10/23/19 21 021 Inactive lisinopril 10 mg tablet RxNorm: 533655 Take 1 Tablet(s) Oral QD 10/02/19 21 021 Inactive icosapent ethyl 1 gram capsule RxNorm: 7223581 Take 2 Capsule(s) (2 gm) Oral BID with meals 09/12/19 022 Inactive Okay to dispense one 2gm tab if you have that available. icosapent ethyl 1 gram capsule RxNorm: 6072651 Take 2 Capsule(s) Oral BID 09/12/19 21 021 Inactive Okay to dispense one 2gm tab if you have that available. amlodipine 10 mg tablet RxNorm: 052546 Take 1 Tablet(s) Oral QD 09/04/19 21 022 Inactive aspirin 81 mg tablet,delayed release RxNorm: 818176 Take 1 Tablet(s) Oral QD 09/04/19 21 021 Inactive Levemir FlexTouch U-100 Insulin 100 unit/mL (3 mL) subcutaneous pen RxNorm: 886921 Inject 150 Unit(s) Subcutaneous BID 09/04/19 21 022 Inactive venlafaxine ER 150 mg tablet,extended release 24 hr RxNorm: 874588 Take 1 Tablet(s) Oral QD 09/04/19 21 021 Inactive clotrimazole-betame thasone 1 %-0.05 % topical cream RxNorm: 339520 Apply to rash on red area on left abdomen/chest Topical BID 08/10/19 21 021 Inactive amlodipine 5 mg tablet RxNorm: 253919 Take 1 Tablet(s) Oral QD 07/31/19 21 021 Inactive cephalexin 500 mg tablet RxNorm: 626877 Take 1 Tablet(s) Oral BID BID - Twice Daily 07/31/19 21 021 Inactive Start 08/01/20 pantoprazole 40 mg tablet,delayed release RxNorm: 892697 Take 1 Tablet(s) Oral QAM every morning 07/08/19 Inactive senna 8.6 mg tablet RxNorm: 743823 Take 1 Tablet(s) Oral QD 07/08/19 Inactive pravastatin 80 mg tablet RxNorm: 024080 Take 1 Tablet(s) Oral QHS every night at bedtime 07/08/19 Inactive carbamazepine 200 mg tablet RxNorm: 837042 Take 1 Tablet(s) Oral BID 07/08/19 Inactive torsemide 20 mg tablet RxNorm: 193413 Take 1 Tablet(s) Oral QD 07/08/19 Inactive clopidogrel 75 mg tablet RxNorm: 365631 Take 1 Tablet(s) Oral QD 07/08/19 Inactive Blood Glucose Test strips RxNorm: Use 1 Test Strip QID at PRN 07/08/19 Inactive E11.42 Novolog Flexpen U-100 Insulin aspart 100 unit/mL (3 mL) subcutaneous RxNorm: 0052227 Administer per sliding scale Milliliter(s) Subcutaneous TID 151-200: 10 u; 201-250: 20 u; 251-300: 30 u; 301-350: 40 u; 351-400: 50 u. 07/08/19 21 Inactive lisinopril 5 mg tablet RxNorm: 681000 Take 1 Tablet(s) Oral QD 07/08/19 Inactive Novolog Flexpen U-100 Insulin aspart 100 unit/mL (3 mL) subcutaneous RxNorm: 1333875 Inject 85 Unit(s) Subcutaneous TID 07/08/19 Inactive clotrimazole 1 % topical cream RxNorm: 226998 Apply to bilateral groin areas Topical BID 07/08/19 Inactive metoprolol succinate ER 200 mg tablet,extended release 24 hr RxNorm: 170872 Take 1 Tablet(s) Oral QD 07/08/19 Inactive Vitamin D3 25 mcg (1,000 unit) tablet RxNorm: 031662 Take 1 Tablet(s) Oral QD 07/08/19 Inactive isosorbide dinitrate 30 mg tablet RxNorm: 721273 Take 1 Tablet(s) Oral QD 07/08/19 Inactive Levemir FlexTouch U-100 Insulin 100 unit/mL (3 mL) subcutaneous pen RxNorm: 367516 Inject 140 Unit(s) Subcutaneous BID 07/08/19 Inactive venlafaxine 75 mg tablet RxNorm: 538889 Take 1 Tablet(s) Oral QD 07/08/19 Inactive acetaminophen 500 mg tablet RxNorm: 822291 Take 1 Tablet(s) Oral TID as needed for headache 06/18/19 Inactive acetaminophen 500 mg tablet RxNorm: 763882 Take 1 Tablet(s) Oral TID as needed for headache 06/18/19 021 Inactive Lyrica 100 mg capsule RxNorm: 464817 Take 1 Capsule(s) Oral QHS every night at bedtime 06/11/19 021 Inactive Lyrica 50 mg capsule RxNorm: 805109 Take 1 Capsule(s) Oral QAM every morning 06/10/19 21 021 Inactive hydrocortisone 2.5 % topical cream RxNorm: 153008 Apply to bilateral groin creases Topical BID 05/15/20 20 021 Inactive clotrimazole 1 % topical cream RxNorm: 079323 Apply to bilateral groin areas Topical BID 05/15/20 20 021 Inactive Lyrica 50 mg capsule RxNorm: 344911 Take 1 Capsule(s) Oral QAM every morning 05/14/20 20 020 Inactive Lyrica 100 mg capsule RxNorm: 603783 Take 1 Capsule(s) Oral QHS every night [...] Inactive Nystop 100,000 unit/gram topical powder RxNorm: 900842 Apply to abd folds, under breasts and L side of groin Topical BID x 14 days, then BID PRN 04/08/20 20 Inactive dx: yeast dermatitis Lyrica 100 mg capsule RxNorm: 971870 Take 1 Capsule(s) Oral QHS every night at bedtime 03/13/20 20 Inactive Lyrica 50 mg capsule RxNorm: 478779 Take 1 Capsule(s) Oral QAM every morning 03/13/20 20 Inactive ketoconazole 2 % shampoo RxNorm: 944635 Apply Topical two times a week with showers 03/11/20 20 Inactive cholecalciferol (vitamin D3) 50 mcg (2,000 unit) tablet RxNorm: 720895 Take 1 Tablet(s) Oral QD 03/11/20 20 021 Inactive Zetia 10 mg tablet RxNorm: 629918 Take 1 Tablet(s) Oral QD 03/07/20 20 021 Inactive Zetia 10 mg tablet RxNorm: 906344 Take 1 Tablet(s) Oral QD 03/07/20 20 Inactive Lyrica 50 mg capsule RxNorm: 700469 Take 1 Capsule(s) Oral QAM every morning 02/15/20 20 Inactive Lyrica 100 mg capsule RxNorm: 831849 Take 1 Capsule(s) Oral QHS every night at bedtime 02/15/20 20 Inactive Lyrica 100 mg capsule RxNorm: 513509 Take 1 Capsule(s) Oral QHS every night at bedtime 02/15/2005 03/01/2 020 Inactive Lyrica 50 mg capsule RxNorm: 889807 Take 1 Capsule(s) Oral QAM every morning 02/15/20 20 020 Inactive venlafaxine ER 75 mg capsule,extended release 24 hr RxNorm: 902458 Take 3 Capsule(s) Oral QD 06/12/19 22 Active polyethylene glycol 3350 17 gram/dose oral powder RxNorm: 399065 Take 17=1 capful Gram(s) Oral BID as needed mix with 4-8oz of liquid 06/12/19 Active icosapent ethyl 1 gram capsule RxNorm: 8919706 Take 2 Capsule(s) (2 gm) Oral BID with meals 10/07/19 23 023 Inactive Okay to dispense one 2gm tab if you have that available. metoprolol succinate ER 200 mg tablet,extended release 24 hr RxNorm: 516202 Take 1 Tablet(s) Oral QD 08/12/19 23 Active loperamide 2 mg capsule RxNorm: 107015 Take 1 Capsule(s) Oral QID as needed 06/12/19 22 Active hydralazine 50 mg tablet RxNorm: 002519 Take 1 Tablet(s) Oral QID 08/12/19 23 Active Levemir FlexTouch U-100 Insulin 100 unit/mL (3 mL) subcutaneous pen RxNorm: 601248 Inject 80 Unit(s) Subcutaneous BID 07/14/19 23 023 Inactive Novolog Flexpen U-100 Insulin aspart 100 unit/mL (3 mL) subcutaneous RxNorm: 4225296 Insert 30 Unit(s) Subcutaneous TID with meals [...] Date Referral: [facility] WPtel: [address] [id number] [place] Referral Records Received 09/21/2022 Referral: [facility] WPtel: [phone] [id number] [place] Referral Completed 05/28/2021 Referral: General Cardiology [...] Sister Jyotsna involved in his care cell# [phone] Guardian: Don (tapan met in person 09/01/21), now has Lexii (same group as don)Lab Schedule: * 10/06/2022
--- OUTSIDE RECORDS SUMMARY | 2022-11-10 00:40 | XMS_ITS | CCD ---
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 Name Role Phone Tapan Shirley PA-C Primary Care Provider Unavailabl e Tapan Shirley PA-C Chronic Care Management Unavaila ble Summary Purpose DataExchange Insurance Providers Payer name Policy type / Coverage type Covered democrat ID Effective Begin Date Effective End Date Medicare [place] Medicare Part B [id number] Unknown Unknown Medicaid [place] Medicare Part B [id number] Unknown Unknown Family history Sister Brittany Suggs [...] Unknown Detention 09/03/[address]: 8066422 Non-Smoker / No History of Smoking 09/02/[address]: 061067965 No Alcohol Consum ption 09/02/2020 Allergies, Adverse Reactions, Alerts Substance Reaction Codes Entered Date Inactivated Date Status LISINOPRIL RxNorm: 78259 02/12/2020 No Inactive Da te Active Metformin [...] 08/11/2022 Active Coronary artery disease invo lving [place] [...] immunization ICD-10: Z23 ICD-9: V03.89 02/10/2022 Resolved [facility] (current) use of insulin ICD-10: Z79.4 02/10 [...] Fill Instructions aripiprazole 15 mg tablet RxNorm: 081502 1/2 TAB (7.5MG) ORALLY DAILY (DX:MAJOR DEPRESSIVE DISORDER) 09/23/19 23 023 Active Accu-Chek Guide test strips RxNorm: Use 1 Test Strip QID 09/15/19 23 024 Active ok to substitute with any covered alternative test strip Lancets,Thin 28 gauge RxNorm: Use 1 as directed QID 09/15/19 23 024 Active torsemide 20 mg tablet RxNorm: 673004 Take 1 Tablet(s) Oral BID 09/09/19 23 024 Active d/c once daily dosing carvedilol 25 mg tablet RxNorm: 434376 Take 1 Tablet(s) Oral QD 08/25/19 23 024 Active pregabalin 150 mg capsule RxNorm: 817199 1 Capsule(s) Oral HS at bed time 08/18/19 23 023 Active pregabalin 100 mg capsule RxNorm: 242144 1 Capsule(s) Oral QAM every morning 08/18/19 23 023 Active lisinopril 20 mg tablet RxNorm: 628294 Give 1 Tablet(s) Oral QD 07/28/19 23 023 Inactive carvedilol 25 mg tablet RxNorm: 037810 1 Tablet(s) Oral QD 07/28/19 23 023 Inactive Lyrica 150 mg capsule RxNorm: 860049 Take 1 Capsule(s) Oral QHS every night at bedtime 07/19/19 023 Inactive d/c 100mg dose Diflucan 150 mg tablet RxNorm: 499135 Take 1 Tablet(s) Oral QD repeat on day 3 and 6 07/19/19 23 023 Inactive pregabalin 100 mg capsule RxNorm: 563624 Take 1 Capsule(s) Oral QAM every morning 07/19/19 023 Inactive Humulin R Regular U-100 Insulin 100 unit/mL injection solution RxNorm: 712232 85 Unit(s) Injection TID 07/13/19 023 Inactive gatifloxacin 0.5 % eye drops RxNorm: 000359 Instill 1 Drop(s) as directed TID Instill 1 drop in to affected eye(s) starting 1 day prior to surgery and continue until gone (do not exceed 4 weeks). 07/13/19 23 023 Inactive carvedilol 25 mg tablet RxNorm: 473896 2 Tablet(s) Oral BID 07/13/19 23 023 Inactive ketorolac 0.5 % eye drops RxNorm: 272065 Instill 1 Drop(s) as directed QID Instill 1 drop into affected eye(s) 4 times daily starting 1 day prior to surgery and continue until gone (do not exceed 4 weeks). 07/13/19 23 023 Inactive Diflucan 150 mg tablet RxNorm: 189057 Take 1 Tablet(s) Oral QD repeat on day 3 and 6 06/30/19 23 023 Inactive Accu-Chek Guide test strips RxNorm: Use 1 Test Strip QID Use 1 test strip to monitor blood glucose 4 times daily and as needed. Dx:E11.42. 06/23/19 23 023 Inactive ok to substitute with any covered alternative test strip dextromethorphan-gu aifenesin 10 mg-100 mg/5 mL oral liquid RxNorm: 541084 Take 10 Milliliter(s) Oral every 4 hours as needed for cough 06/19/19 023 Inactive dextromethorphan-gu aifenesin 10 mg-100 mg/5 mL oral liquid RxNorm: 988634 Take 10 Milliliter(s) Oral every 4 hours as needed for cough 06/19/19 023 Inactive Lyrica 150 mg capsule RxNorm: 860677 Take 1 Capsule(s) Oral QHS every night at bedtime 06/18/19 023 Inactive d/c 100mg dose aripiprazole 15 mg tablet RxNorm: 175655 1/2 TAB (7.5MG) ORALLY DAILY (DX:MAJOR DEPRESSIVE DISORDER) 06/05/19 23 023 Inactive pregabalin 100 mg capsule RxNorm: 354990 1 Capsule(s) Oral QAM every morning 06/02/19 23 023 Inactive Banophen 50 mg capsule RxNorm: 8878906 Take 1 Capsule(s) Oral Q6H every 6 hours as needed 05/19/19 23 No Stop Date Active Novolog Flexpen U-100 Insulin aspart 100 unit/mL (3 mL) subcutaneous RxNorm: 2613855 Inject 10 Unit(s) Subcutaneous QHS every night at bedtime with nighttime snack 04/08/20 22 022 Inactive Novolog Flexpen U-100 Insulin aspart 100 unit/mL (3 mL) subcutaneous RxNorm: 4097772 Inject 42 Unit(s) Subcutaneous TID in addition to sliding scale 04/08/20 22 022 Inactive d/c 36u albuterol sulfate HFA 90 mcg/actuation aerosol inhaler RxNorm: 6983281 Take 2 Puff(s) Inhalation Q4H every four hours as needed as needed for SOB, cough, or wheezing 04/07/20 22 030 Active Banophen 50 mg capsule RxNorm: 2457414 Take 1 Capsule(s) Oral Q6H every 6 hours as needed 04/06/20 023 Inactive diphenhydramine 50 mg tablet RxNorm: 3341116 Take 1 Tablet(s) Oral Q6H every 6 hours as needed 04/06/20 22 022 Inactive diphenhydramine 50 mg tablet RxNorm: 9054003 1 Tablet(s) Oral Q6H every 6 hours as needed 04/06/20 022 Inactive Abilify 15 mg tablet RxNorm: 294185 1/2 Tablet(s) Oral QD 03/10/20 023 Inactive Shingrix (PF) 50 mcg/0.5 mL intramuscular suspension, kit RxNorm: 2479719 Administer 1/2 Milliliter(s) Intramuscular QD one time shingrix step 2 ( step 1 given 11/04/21) WITH needle - Nursing please administer upon arrival and once administered post a bridge message with date of administration, matrix supervisor, expiration date, and lot# so we can update [facility] 02/18/20 22 022 Inactive dispense with needle Shingrix (PF) 50 mcg/0.5 mL intramuscular suspension, kit RxNorm: 4335256 Administer 1/2 Milliliter(s) Intramuscular QD one time shingrix step 2 ( step 1 given 11/04/21) WITH needle - Nursing please administer upon arrival and once administered post a bridge message with date of administration, matrix supervisor, expiration date, and lot# so we can update [facility] 02/18/20 22 022 Inactive dispense with needle acetaminophen 500 mg tablet RxNorm: 144147 Take 1 Tablet(s) Oral TID 01/08/20 22 023 Active d/c PRN order polyethylene glycol 3350 17 gram/dose oral powder RxNorm: 768393 Take 17=1 capful Gram(s) Oral QD mix with 4-8oz of liquid 01/08/20 22 023 Active take this in addition to BID prn order Lyrica 100 mg capsule RxNorm: 855752 Take 1 Capsule(s) Oral QAM every morning 01/08/20 22 022 Inactive d/c 50mg dose Lyrica 150 mg capsule RxNorm: 846493 Take 1 Capsule(s) Oral QHS every night at bedtime 01/08/20 22 023 Inactive d/c 100mg dose Abilify 5 mg tablet RxNorm: 605449 Take 1 Tablet(s) Oral QD take 1 tab po QD #30 refill 5 dx: MDD 12/12/19 22 022 Inactive Abilify 5 mg tablet RxNorm: 807359 Take 1 Tablet(s) Oral QD take 1 tab po QD #30 refill 5 dx: MDD 12/12/19 22 022 Inactive chlorthalidone 25 mg tablet RxNorm: 970364 Take 1 Tablet(s) Oral QAM every morning 12/10/19 22 023 Active Novolog Flexpen U-100 Insulin aspart 100 unit/mL (3 mL) subcutaneous RxNorm: 5645078 Inject 42 Unit(s) Subcutaneous TID in addition to sliding scale 12/10/19 22 022 Inactive d/c 36u pregabalin 50 mg capsule RxNorm: 924061 Take 1 Capsule(s) Oral QAM every morning 11/12/19 22 Inactive tetanus-diphtheria toxoids-Td 2 Lf unit-2 Lf unit/0.5 mL IM suspension RxNorm: 139 Take 0.5 Miscellaneous Intramuscular 11/12/19 22 022 Inactive need tdap - nursing to administer upon arrival pregabalin 50 mg capsule RxNorm: 171396 Take 1 Capsule(s) Oral QAM every morning 10/16/19 22 022 Inactive pregabalin 50 mg capsule RxNorm: 573589 Take 1 Capsule(s) Oral QAM every morning 10/16/19 22 022 Inactive pregabalin 50 mg capsule RxNorm: 936718 1 Capsule(s) Oral QAM every morning 10/15/19 22 022 Inactive Shingrix (PF) 50 mcg/0.5 mL intramuscular suspension, kit RxNorm: 3152130 Administer 1/2 Milliliter(s) Intramuscular one time Nursing please administer upon arrival and once administered post a bridge message with date of administration, matrix 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 10/09/19 22 022 Inactive shingrix step 1 Shingrix (PF) 50 mcg/0.5 mL intramuscular suspension, kit RxNorm: 6209849 Administer 1/2 Milliliter(s) Intramuscular one time Nursing please administer upon arrival and once administered post a bridge message with date of administration, matrix 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 10/09/19 22 022 Inactive shingrix step 1 cholecalciferol (vitamin D3) 1,250 mcg (50,000 unit) capsule RxNorm: 146350 Take 1 Capsule(s) Oral QW once a [...] aspart 100 unit/mL (3 mL) subcutaneous RxNorm: 1878081 Inject 10 Unit(s) Subcutaneous QHS every night at bedtime with nighttime snack 10/08/19 22 Inactive Shingrix (PF) 50 mcg/0.5 mL intramuscular suspension, kit RxNorm: 4107201 ADMINISTER 2-DOSE SERIES PER CDC GUIDELINES 10/08/19 22 022 Active Shingrix (PF) 50 mcg/0.5 mL intramuscular suspension, kit RxNorm: 2603461 ADMINISTER 2-DOSE SERIES PER CDC GUIDELINES 10/08/19 22 022 Inactive Novolog Flexpen U-100 Insulin aspart 100 unit/mL (3 mL) subcutaneous RxNorm: 7683569 Inject 36 Unit(s) Subcutaneous TID in addition to sliding scale 10/08/19 22 022 Inactive Novofine Autocover 30 gauge x 1/3 needle RxNorm: Use 1 Miscellaneous UD as directed Use 1 needle as directed to administer insulin 5 times a day Dx:E11.42. 10/03/19 22 Inactive ok to substitute with any covered alternative pen needle benzoyl peroxide 10 % topical cleanser RxNorm: 666723 Apply 1 Application Topical QD apply to face, wash rinse and dry once daily (may change to QOD if drying) 08/19/19 22 022 Inactive (%covered by insurance) #60ml refill 11 dx: acne benzoyl peroxide 10 % topical cleanser RxNorm: 244563 Apply 1 Application Topical QD apply to face, wash rinse and dry once daily (may change to QOD if drying) 08/19/19 22 022 Inactive (%covered by insurance) #60ml refill 11 dx: acne benzoyl peroxide 10 % topical cleanser RxNorm: 471319 Apply 1 Application Topical QD apply to face, wash rinse and dry once daily (may change to QOD if drying) 08/19/19 22 022 Inactive (%covered by insurance) #60ml refill 11 dx: acne Lyrica 50 mg capsule RxNorm: 772013 Take 1 Capsule(s) Oral QAM every morning Take 1 capsule by mouth once daily 08/19/19 022 Inactive benzoyl peroxide 10 % topical cleanser RxNorm: 640453 Apply 1 Application Topical QD apply to face, wash rinse and dry once daily (may change to QOD if drying) 08/19/19 22 022 Inactive (%covered by insurance) #60ml refill 11 dx: acne Lyrica 100 mg capsule RxNorm: 872806 Take 1 Capsule(s) Oral QHS every night at bedtime Take 1 capsule by mouth once daily at bedtime 08/19/19 22 022 Inactive Lyrica 100 mg capsule RxNorm: 696700 Take 1 Capsule(s) Oral QHS every night at bedtime Take 1 capsule by mouth once daily at bedtime 08/16/19 22 022 Inactive Lyrica 50 mg capsule RxNorm: 382224 Take 1 Capsule(s) Oral QAM every morning Take 1 capsule by mouth once daily 08/16/19 22 022 Inactive Levemir FlexTouch U-100 Insulin 100 unit/mL (3 mL) subcutaneous pen RxNorm: 708907 Inject 86 Unit(s) Subcutaneous BID 08/05/19 22 022 Inactive d/c 83units BID Lyrica 100 mg capsule RxNorm: 448861 Take 1 Capsule(s) Oral QHS every night at bedtime Take 1 capsule by mouth once daily at bedtime 07/14/19 22 022 Inactive Lyrica 50 mg capsule RxNorm: 067758 Take 1 Capsule(s) Oral QAM every morning Take 1 capsule by mouth once daily 07/14/19 22 022 Inactive Levemir FlexTouch U-100 Insulin 100 unit/mL (3 mL) subcutaneous pen RxNorm: 641259 Inject 83 Unit(s) Subcutaneous BID 07/08/19 22 [...] 4 times daily and as needed. Dx:E11.42. 06/05/1907 06/20/2 022 Inactive ok to substitute with any covered alternative test strip Accu-Chek Guide test strips RxNorm: Use 1 Test Strip QID Use 1 test strip to monitor blood glucose 4 times daily and as needed. Dx:E11.42. 06/05/19 22 Inactive ok to substitute with any covered alternative test strip isosorbide mononitrate ER 30 mg tablet,extended release 24 hr RxNorm: 517925 Take 1 Tablet(s) Oral QD 05/05/20 No Stop Date Active hydralazine 50 mg tablet RxNorm: 506712 Take 1 Tablet(s) Oral QID 05/05/20 21 022 Inactive venlafaxine ER 225 mg tablet,extended release 24 hr RxNorm: 739192 Take 1 Tablet(s) Oral QD 05/05/20 21 Inactive venlafaxine ER 225 mg tablet,extended release 24 hr RxNorm: 321995 Take 1 Tablet(s) Oral QD 05/05/20 21 022 Inactive hydralazine 50 mg tablet RxNorm: 494273 Take 1 Tablet(s) Oral QID 05/05/20 21 Inactive aspirin 81 mg tablet,delayed release RxNorm: 489917 Take 1 Tablet(s) Oral QD 03/31/20 21 022 Inactive Zetia 10 mg tablet RxNorm: 549641 Take 1 Tablet(s) Oral QD 03/31/20 022 Inactive Vitamin D2 1,250 mcg (50,000 unit) capsule RxNorm: 6815190 Take 1 Capsule(s) Oral QW once a week x 12 weeks 03/31/20 022 Inactive Vitamin D2 1,250 mcg (50,000 unit) capsule RxNorm: 1276173 Take 1 Capsule(s) Oral QW once a week 03/31/20 Inactive Zetia 10 mg tablet RxNorm: 283100 Take 1 Tablet(s) Oral QD 03/31/20 21 Inactive hydralazine 25 mg tablet RxNorm: 700817 Take 1 Tablet(s) Oral QID 03/31/20 021 Inactive hydralazine 25 mg tablet RxNorm: 937749 Take 1 Tablet(s) Oral QID 03/31/20 021 Inactive hydralazine 10 mg tablet RxNorm: 776418 Take 1 Tablet(s) Oral QID 03/03/20 021 Inactive cephalexin 500 mg tablet RxNorm: 150921 Take 1 Tablet(s) Oral QID 02/27/20 021 Inactive cephalexin 500 mg tablet RxNorm: 890125 Take 1 Tablet(s) Oral QID 02/27/20 021 Inactive lisinopril 40 mg tablet RxNorm: 255895 Take 1 Tablet(s) Oral QD 02/11/20 023 Inactive Eliquis 5 mg tablet RxNorm: 2214846 Take 1 Tablet(s) Oral BID 01/05/20 022 Inactive Eliquis 5 mg tablet RxNorm: 3279551 Take 2 Tablet(s) Oral QD 01/01/20 21 021 Inactive Lyrica 50 mg capsule RxNorm: 937238 Take 1 Capsule(s) Oral QAM every morning 12/24/19 021 Inactive Lyrica 100 mg capsule RxNorm: 843018 Take 1 Capsule(s) Oral QHS every night at bedtime 12/24/19 021 Inactive clotrimazole 1 % topical cream RxNorm: 677049 Apply to right foot and toes Topical BID 12/04/19 21 023 Inactive metoprolol succinate ER 200 mg tablet,extended release 24 hr RxNorm: 980065 Take 1 Tablet(s) Oral QD 12/04/19 023 Inactive ciprofloxacin 500 mg tablet RxNorm: 834050 Take 1 Tablet(s) Oral QD 11/30/19 21 021 Inactive DX ofloxacin otic drops Accu-Chek Guide test strips RxNorm: USE 1 TO CHECK GLUCOSE 4 TIMES DAILY AND NEEDED 11/15/19 21 023 Inactive Blood Glucose Test strips RxNorm: Use 1 Test Strip QID at PRN 11/05/19 21 023 Inactive E11.42 lisinopril 30 mg tablet RxNorm: 262453 Take 1 Tablet(s) Oral QD 10/30/19 21 Inactive lisinopril 20 mg tablet RxNorm: 336214 Take 1 Tablet(s) Oral QD 10/23/19 21 Inactive lisinopril 20 mg tablet RxNorm: 780432 Take 1 Tablet(s) Oral QD 10/23/19 21 Inactive lisinopril 10 mg tablet RxNorm: 881634 Take 1 Tablet(s) Oral QD 10/02/19 021 Inactive icosapent ethyl 1 gram capsule RxNorm: 9450259 Take 2 Capsule(s) (2 gm) Oral BID with meals 09/12/19 Inactive Okay to dispense one 2gm tab if you have that available. icosapent ethyl 1 gram capsule RxNorm: 0265878 Take 2 Capsule(s) Oral BID 09/12/19 021 Inactive Okay to dispense one 2gm tab if you have that available. amlodipine 10 mg tablet RxNorm: 235712 Take 1 Tablet(s) Oral QD 09/04/19 Inactive aspirin 81 mg tablet,delayed release RxNorm: 281762 Take 1 Tablet(s) Oral QD 09/04/19 21 Inactive Levemir FlexTouch U-100 Insulin 100 unit/mL (3 mL) subcutaneous pen RxNorm: 358717 Inject 150 Unit(s) Subcutaneous BID 09/04/19 21 022 Inactive venlafaxine ER 150 mg tablet,extended release 24 hr RxNorm: 837844 Take 1 Tablet(s) Oral QD 09/04/19 21 Inactive clotrimazole-betame thasone 1 %-0.05 % topical cream RxNorm: 622050 Apply to rash on red area on left abdomen/chest Topical BID 08/10/19 21 Inactive amlodipine 5 mg tablet RxNorm: 960212 Take 1 Tablet(s) Oral QD 07/31/19 21 021 Inactive cephalexin 500 mg tablet RxNorm: 152444 Take 1 Tablet(s) Oral BID BID - Twice Daily 07/31/19 021 Inactive Start 08/01/20 pantoprazole 40 mg tablet,delayed release RxNorm: 604323 Take 1 Tablet(s) Oral QAM every morning 07/08/19 022 Inactive senna 8.6 mg tablet RxNorm: 865515 Take 1 Tablet(s) Oral QD 07/08/19 022 Inactive pravastatin 80 mg tablet RxNorm: 504435 Take 1 Tablet(s) Oral QHS every night at bedtime 07/08/19 Inactive carbamazepine 200 mg tablet RxNorm: 200221 Take 1 Tablet(s) Oral BID 07/08/19 Inactive torsemide 20 mg tablet RxNorm: 683131 Take 1 Tablet(s) Oral QD 07/08/19 023 Inactive clopidogrel 75 mg tablet RxNorm: 276189 Take 1 Tablet(s) Oral QD 07/08/19 021 Inactive Blood Glucose Test strips RxNorm: Use 1 Test Strip QID at PRN 07/08/19 Inactive E11.42 Novolog Flexpen U-100 Insulin aspart 100 unit/mL (3 mL) subcutaneous RxNorm: 4871056 Administer per sliding scale Milliliter(s) Subcutaneous TID 151-200: 10 u; 201-250: 20 u; 251-300: 30 u; 301-350: 40 u; 351-400: 50 u. 07/08/19 022 Inactive lisinopril 5 mg tablet RxNorm: 362312 Take 1 Tablet(s) Oral QD 07/08/19 021 Inactive Novolog Flexpen U-100 Insulin aspart 100 unit/mL (3 mL) subcutaneous RxNorm: 1170822 Inject 85 Unit(s) Subcutaneous TID 07/08/19 022 Inactive clotrimazole 1 % topical cream RxNorm: 576917 Apply to bilateral groin areas Topical BID 07/08/19 022 Inactive metoprolol succinate ER 200 mg tablet,extended release 24 hr RxNorm: 983779 Take 1 Tablet(s) Oral QD 07/08/19 021 Inactive Vitamin D3 25 mcg (1,000 unit) tablet RxNorm: 103458 Take 1 Tablet(s) Oral QD 07/08/19 Inactive isosorbide dinitrate 30 mg tablet RxNorm: 348806 Take 1 Tablet(s) Oral QD 07/08/19 Inactive Levemir FlexTouch U-100 Insulin 100 unit/mL (3 mL) subcutaneous pen RxNorm: 476619 Inject 140 Unit(s) Subcutaneous BID 07/08/19 021 Inactive venlafaxine 75 mg tablet RxNorm: 134979 Take 1 Tablet(s) Oral QD 07/08/19 Inactive acetaminophen 500 mg tablet RxNorm: 552192 Take 1 Tablet(s) Oral TID as needed for headache 06/18/19 Inactive acetaminophen 500 mg tablet RxNorm: 287986 Take 1 Tablet(s) Oral TID as needed for headache 06/18/19 021 Inactive Lyrica 100 mg capsule RxNorm: 991880 Take 1 Capsule(s) Oral QHS every night at bedtime 06/11/19 Inactive Lyrica 50 mg capsule RxNorm: 999715 Take 1 Capsule(s) Oral QAM every morning 06/10/19 021 Inactive hydrocortisone 2.5 % topical cream RxNorm: 631740 Apply to bilateral groin creases Topical BID 05/15/20 20 021 Inactive clotrimazole 1 % topical cream RxNorm: 145668 Apply to bilateral groin areas Topical BID 05/15/20 20 021 Inactive Lyrica 50 mg capsule RxNorm: 571378 Take 1 Capsule(s) Oral QAM every morning 05/14/20 20 Inactive Lyrica 100 mg capsule RxNorm: 897976 Take 1 Capsule(s) Oral QHS every night [...] Inactive Nystop 100,000 unit/gram topical powder RxNorm: 675372 Apply to abd folds, under breasts and L side of groin Topical BID x 14 days, then BID PRN 04/08/20 20 021 Inactive dx: yeast dermatitis Lyrica 100 mg capsule RxNorm: 043687 Take 1 Capsule(s) Oral QHS every night at bedtime 03/13/20 20 Inactive Lyrica 50 mg capsule RxNorm: 299754 Take 1 Capsule(s) Oral QAM every morning 03/13/20 20 Inactive ketoconazole 2 % shampoo RxNorm: 639851 Apply Topical two times a week with showers 03/11/20 20 Inactive cholecalciferol (vitamin D3) 50 mcg (2,000 unit) tablet RxNorm: 724721 Take 1 Tablet(s) Oral QD 03/11/20 20 021 Inactive Zetia 10 mg tablet RxNorm: 295943 Take 1 Tablet(s) Oral QD 03/07/20 20 021 Inactive Zetia 10 mg tablet RxNorm: 058958 Take 1 Tablet(s) Oral QD 03/07/20 20 020 Inactive Lyrica 50 mg capsule RxNorm: 343022 Take 1 Capsule(s) Oral QAM every morning 02/15/20 20 Inactive Lyrica 100 mg capsule RxNorm: 447166 Take 1 Capsule(s) Oral QHS every night at bedtime 02/15/20 20 Inactive Lyrica 100 mg capsule RxNorm: 447869 Take 1 Capsule(s) Oral QHS every night at bedtime 02/15/20 20 Inactive Lyrica 50 mg capsule RxNorm: 170857 Take 1 Capsule(s) Oral QAM every morning 02/15/20 20 Inactive venlafaxine ER 75 mg capsule,extended release 24 hr RxNorm: 528755 Take 3 Capsule(s) Oral QD 06/12/19 22 Active polyethylene glycol 3350 17 gram/dose oral powder RxNorm: 340810 Take 17=1 capful Gram(s) Oral BID as needed mix with 4-8oz of liquid 06/12/19 22 Active icosapent ethyl 1 gram capsule RxNorm: 4320403 Take 2 Capsule(s) (2 gm) Oral BID with meals 10/07/19 23 023 Inactive Okay to dispense one 2gm tab if you have that available. metoprolol succinate ER 200 mg tablet,extended release 24 hr RxNorm: 851554 Take 1 Tablet(s) Oral QD 08/12/19 23 Active loperamide 2 mg capsule RxNorm: 778842 Take 1 Capsule(s) Oral QID as needed 06/12/19 22 Active hydralazine 50 mg tablet RxNorm: 690480 Take 1 Tablet(s) Oral QID 08/12/19 23 Active Levemir FlexTouch U-100 Insulin 100 unit/mL (3 mL) subcutaneous pen RxNorm: 981018 Inject 80 Unit(s) Subcutaneous BID 07/14/19 23 023 Inactive Novolog Flexpen U-100 Insulin aspart 100 unit/mL (3 mL) subcutaneous RxNorm: 3646743 Insert 30 Unit(s) Subcutaneous TID with meals [...] [facility] WPtel: [phone] [facility], [address] [id number] [place] Referral Records Received 09/21/2022 Referral: [facility]Ptel: [address] [id number] [place] Referral Completed 05/28/2021 Referral: General Cardiology Referral Complet ed 01/03/2021 Referral: General Psychologist Referral Close d Instructions Comment Date Leonid is a Male being seen living at [facility]. Initial [facility] visit 01/2020. PMHx including DMII, CAD w/ 5 stents, Depression, Seizure Disorder and CKD stage 3. He moved into [facility] in 12/2019 but after a hospitalization 05/2021 [facility]. Sister Jyotsna involved in his care cell# [phone] Guardian: Don (tapan met in person 09/01/21), now has Lexii (same group as don)Lab Schedule: * 10/06/2022
--- OUTSIDE RECORDS SUMMARY | 2022-11-10 00:41 | XMS_ITS | CCD ---
Author Name Tapan Shirley PA-C Address [address] [facility] [address] [place] [address] Phone Organization [facility] Phone Care Team Providers Care Engineering Instructor Name Role Phone Tapan Shirley PA-C Primary Care Provider Unavailabl e Tapan Shirley PA-C Chronic Care Management Unavaila ble Summary Purpose DataExchange Insurance Providers Payer name Policy type / Coverage type Covered republican ID Effective Begin Date Effective End Date Medicare [place] Medicare Part B [id number] Unknown Unknown [place] Medicare Part B [id number] Unknown Unknown Family history Sister Brittany Suggs [...] Half-Way 09/03/[address]: 5250282 Non-Smoker / No History of Smoking 09/02/[address]: 441810135 No Alcohol Consum ption 09/02/2020 Allergies, Adverse Reactions, Alerts Substance Reaction Codes Entered Date Inactivated Date Status LISINOPRIL RxNorm: 42612 02/12/2020 No Inactive Da te Active Metformin [...] 08/11/2022 Active Coronary artery disease invo lving [place] coronary artery of 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 ICD-10: Z79.4 [...] (3 mL) solution subcutaneous insulin pen RxNorm: 326532 Inject 30 Unit(s) Subcutaneous BID 10/07/19 23 024 Active Humulin R U-500 (Concentrated) Insulin 500 unit/mL subcutaneous soln RxNorm: 241144 Inject 100 Unit(s) Subcutaneous TID 10/07/19 23 024 Active Ozempic 0.25 mg or 0.5 mg (2 mg/3 mL) subcutaneous pen injector RxNorm: 6302017 Inject 1/2 Milligram(s) Subcutaneous QW once a week 10/07/19 23 024 Active aripiprazole 15 mg tablet RxNorm: 737080 /2 TAB (7.5MG) ORALLY DAILY (DX:MAJOR DEPRESSIVE DISORDER) 09/23/19 23 023 Active Accu-Chek Guide test strips RxNorm: Use 1 Test Strip QID 09/15/19 23 024 Active ok to substitute with any covered alternative test strip Lancets,Thin 28 gauge RxNorm: Use 1 as directed QID 09/15/19 23 024 Active torsemide 20 mg tablet RxNorm: 495493 Take 1 Tablet(s) Oral BID 09/09/19 024 Active d/c once daily dosing carvedilol 25 mg tablet RxNorm: 741223 Take 1 Tablet(s) Oral QD 08/25/19 024 Active pregabalin 150 mg capsule RxNorm: 807746 1 Capsule(s) Oral HS at bed time 08/18/19 23 023 Active pregabalin 100 mg capsule RxNorm: 443735 1 Capsule(s) Oral QAM every morning 08/18/19 23 023 Active carvedilol 25 mg tablet RxNorm: 302919 1 Tablet(s) Oral QD 07/28/19 23 023 Inactive lisinopril 20 mg tablet RxNorm: 163088 Give 1 Tablet(s) Oral QD 07/28/19 23 023 Inactive Lyrica 150 mg capsule RxNorm: 510799 Take 1 Capsule(s) Oral QHS every night at bedtime 07/19/19 023 Inactive d/c 100mg dose Diflucan 150 mg tablet RxNorm: 629455 Take 1 Tablet(s) Oral QD repeat on day 3 and 6 07/19/19 23 023 Inactive pregabalin 100 mg capsule RxNorm: 985486 Take 1 Capsule(s) Oral QAM every morning 07/19/19 23 023 Inactive gatifloxacin 0.5 % eye drops RxNorm: 428072 Instill 1 Drop(s) as directed TID Instill 1 drop in to affected eye(s) starting 1 day prior to surgery and continue until gone (do not exceed 4 weeks). 07/13/19 23 023 Inactive carvedilol 25 mg tablet RxNorm: 235645 2 Tablet(s) Oral BID 07/13/19 23 023 Inactive Humulin R Regular U-100 Insulin 100 unit/mL injection solution RxNorm: 665559 85 Unit(s) Injection TID 07/13/19 23 023 Inactive ketorolac 0.5 % eye drops RxNorm: 124865 Instill 1 Drop(s) as directed QID Instill 1 drop into affected eye(s) 4 times daily starting 1 day prior to surgery and continue until gone (do not exceed 4 weeks). 07/13/19 23 023 Inactive Diflucan 150 mg tablet RxNorm: 594397 Take 1 Tablet(s) Oral QD repeat on day 3 and 6 06/30/19 23 023 Inactive Accu-Chek Guide test strips RxNorm: Use 1 Test Strip QID Use 1 test strip to monitor blood glucose 4 times daily and as needed. Dx:E11.42. 06/23/19 23 023 Inactive ok to substitute with any covered alternative test strip dextromethorphan-gu aifenesin 10 mg-100 mg/5 mL oral liquid RxNorm: 306717 Take 10 Milliliter(s) Oral every 4 hours as needed for cough 06/19/19 23 023 Inactive dextromethorphan-gu aifenesin 10 mg-100 mg/5 mL oral liquid RxNorm: 791362 Take 10 Milliliter(s) Oral every 4 hours as needed for cough 06/19/19 23 023 Inactive Lyrica 150 mg capsule RxNorm: 010838 Take 1 Capsule(s) Oral QHS every night at bedtime 06/18/19 23 023 Inactive d/c 100mg dose aripiprazole 15 mg tablet RxNorm: 020998 1/2 TAB (7.5MG) ORALLY DAILY (DX:MAJOR DEPRESSIVE DISORDER) 06/05/19 23 023 Inactive pregabalin 100 mg capsule RxNorm: 852665 1 Capsule(s) Oral QAM every morning 06/02/19 023 Inactive Banophen 50 mg capsule RxNorm: 2599160 Take 1 Capsule(s) Oral Q6H every 6 hours as needed 05/19/19 No Stop Date Active Novolog Flexpen U-100 Insulin aspart 100 unit/mL (3 mL) subcutaneous RxNorm: 2692541 Inject 10 Unit(s) Subcutaneous QHS every night at bedtime with nighttime snack 04/08/20 Inactive Novolog Flexpen U-100 Insulin aspart 100 unit/mL (3 mL) subcutaneous RxNorm: 1210339 Inject 42 Unit(s) Subcutaneous TID in addition to sliding scale 04/08/20 Inactive d/c 36u albuterol sulfate HFA 90 mcg/actuation aerosol inhaler RxNorm: 6773715 Take 2 Puff(s) Inhalation Q4H every four hours as needed as needed for SOB, cough, or wheezing 04/07/20 030 Active Banophen 50 mg capsule RxNorm: 6148280 Take 1 Capsule(s) Oral Q6H every 6 hours as needed 04/06/20 023 Inactive diphenhydramine 50 mg tablet RxNorm: 1211261 Take 1 Tablet(s) Oral Q6H every 6 hours as needed 04/06/20 022 Inactive diphenhydramine 50 mg tablet RxNorm: 2547504 1 Tablet(s) Oral Q6H every 6 hours as needed 04/06/20 022 Inactive Abilify 15 mg tablet RxNorm: 183077 1/2 Tablet(s) Oral QD 03/10/20 023 Inactive Shingrix (PF) 50 mcg/0.5 mL intramuscular suspension, kit RxNorm: 9726374 Administer 1/2 Milliliter(s) Intramuscular QD one time shingrix step 2 ( step 1 given 11/04/21) WITH needle - Nursing please administer upon arrival and once administered post a bridge message with date of administration, foreign banknote teller, expiration date, and lot# so we can update MIIC 02/18/20 22 022 Inactive dispense with needle Shingrix (PF) 50 mcg/0.5 mL intramuscular suspension, kit RxNorm: 6707353 Administer 1/2 Milliliter(s) Intramuscular QD one time shingrix step 2 ( step 1 given 11/04/21) WITH needle - Nursing please administer upon arrival and once administered post a bridge message with date of administration, foreign banknote teller, expiration date, and lot# so we can update MIIC 02/18/20 22 022 Inactive dispense with needle acetaminophen 500 mg tablet RxNorm: 254815 Take 1 Tablet(s) Oral TID 01/08/20 22 023 Active d/c PRN order polyethylene glycol 3350 17 gram/dose oral powder RxNorm: 264328 Take 17=1 capful Gram(s) Oral QD mix with 4-8oz of liquid 01/08/20 22 023 Active take this in addition to BID prn order Lyrica 100 mg capsule RxNorm: 940449 Take 1 Capsule(s) Oral QAM every morning 01/08/20 22 022 Inactive d/c 50mg dose Lyrica 150 mg capsule RxNorm: 401977 Take 1 Capsule(s) Oral QHS every night at bedtime 01/08/20 22 023 Inactive d/c 100mg dose Abilify 5 mg tablet RxNorm: 255554 Take 1 Tablet(s) Oral QD take 1 tab po QD #30 refill 5 dx: MDD 12/12/19 22 022 Inactive Abilify 5 mg tablet RxNorm: 632605 Take 1 Tablet(s) Oral QD take 1 tab po QD #30 refill 5 dx: MDD 12/12/19 22 022 Inactive chlorthalidone 25 mg tablet RxNorm: 399135 Take 1 Tablet(s) Oral QAM every morning 12/10/19 22 023 Active Novolog Flexpen U-100 Insulin aspart 100 unit/mL (3 mL) subcutaneous RxNorm: 0562972 Inject 42 Unit(s) Subcutaneous TID in addition to sliding scale 12/10/19 22 022 Inactive d/c 36u pregabalin 50 mg capsule RxNorm: 907128 Take 1 Capsule(s) Oral QAM every morning 11/12/19 22 Inactive tetanus-diphtheria toxoids-Td 2 Lf unit-2 Lf unit/0.5 mL IM suspension RxNorm: 139 Take 0.5 Miscellaneous Intramuscular 11/12/19 22 022 Inactive need tdap - nursing to administer upon arrival pregabalin 50 mg capsule RxNorm: 236566 Take 1 Capsule(s) Oral QAM every morning 10/16/19 22 022 Inactive pregabalin 50 mg capsule RxNorm: 751554 Take 1 Capsule(s) Oral QAM every morning 10/16/19 22 022 Inactive pregabalin 50 mg capsule RxNorm: 585201 1 Capsule(s) Oral QAM every morning 10/15/19 22 022 Inactive Shingrix (PF) 50 mcg/0.5 mL intramuscular suspension, kit RxNorm: 6978844 Administer 1/2 Milliliter(s) Intramuscular one time Nursing please administer upon arrival and once administered post a bridge message with date of administration, foreign banknote teller, expiration date, and lot# so we can update MIIC. 10/09/19 22 022 Inactive shingrix step 1 Shingrix (PF) 50 mcg/0.5 mL intramuscular suspension, kit RxNorm: 0642279 Administer 1/2 Milliliter(s) Intramuscular one time Nursing please administer upon arrival and once administered post a bridge message with date of administration, foreign banknote teller, expiration date, and lot# so we can update MIIC. 10/09/19 22 022 Inactive shingrix step 1 cholecalciferol (vitamin D3) 1,250 mcg (50,000 unit) capsule RxNorm: 889689 Take 1 Capsule(s) Oral QW once a [...] aspart 100 unit/mL (3 mL) subcutaneous RxNorm: 4266118 Inject 10 Unit(s) Subcutaneous QHS every night at bedtime with nighttime snack 10/08/19 22 Inactive Shingrix (PF) 50 mcg/0.5 mL intramuscular suspension, kit RxNorm: 9283041 ADMINISTER 2-DOSE SERIES PER CDC GUIDELINES 10/08/19 22 Active Shingrix (PF) 50 mcg/0.5 mL intramuscular suspension, kit RxNorm: 6580298 ADMINISTER 2-DOSE SERIES PER CDC GUIDELINES 10/08/19 22 Inactive Novolog Flexpen U-100 Insulin aspart 100 unit/mL (3 mL) subcutaneous RxNorm: 9882754 Inject 36 Unit(s) Subcutaneous TID in addition to sliding scale 10/08/19 Inactive Novofine Autocover 30 gauge x 1/3 needle RxNorm: Use 1 Miscellaneous UD as directed Use 1 needle as directed to administer insulin 5 times a day Dx:E11.42. 10/03/19 22 Inactive ok to substitute with any covered alternative pen needle benzoyl peroxide 10 % topical cleanser RxNorm: 286235 Apply 1 Application Topical QD apply to face, wash rinse and dry once daily (may change to QOD if drying) 08/19/19 22 022 Inactive (%covered by insurance) #60ml refill 11 dx: acne benzoyl peroxide 10 % topical cleanser RxNorm: 683792 Apply 1 Application Topical QD apply to face, wash rinse and dry once daily (may change to QOD if drying) 08/19/19 22 022 Inactive (%covered by insurance) #60ml refill 11 dx: acne benzoyl peroxide 10 % topical cleanser RxNorm: 387129 Apply 1 Application Topical QD apply to face, wash rinse and dry once daily (may change to QOD if drying) 08/19/19 22 022 Inactive (%covered by insurance) #60ml refill 11 dx: acne Lyrica 50 mg capsule RxNorm: 966675 Take 1 Capsule(s) Oral QAM every morning Take 1 capsule by mouth once daily 08/19/19 22 022 Inactive benzoyl peroxide 10 % topical cleanser RxNorm: 679108 Apply 1 Application Topical QD apply to face, wash rinse and dry once daily (may change to QOD if drying) 08/19/19 22 Inactive (%covered by insurance) #60ml refill 11 dx: acne Lyrica 100 mg capsule RxNorm: 316752 Take 1 Capsule(s) Oral QHS every night at bedtime Take 1 capsule by mouth once daily at bedtime 08/19/19 022 Inactive Lyrica 100 mg capsule RxNorm: 676674 Take 1 Capsule(s) Oral QHS every night at bedtime Take 1 capsule by mouth once daily at bedtime 08/16/19 22 022 Inactive Lyrica 50 mg capsule RxNorm: 537393 Take 1 Capsule(s) Oral QAM every morning Take 1 capsule by mouth once daily 08/16/19 22 022 Inactive Levemir FlexTouch U-100 Insulin 100 unit/mL (3 mL) subcutaneous pen RxNorm: 788169 Inject 86 Unit(s) Subcutaneous BID 08/05/19 22 022 Inactive d/c 83units BID Lyrica 100 mg capsule RxNorm: 284585 Take 1 Capsule(s) Oral QHS every night at bedtime Take 1 capsule by mouth once daily at bedtime 07/14/19 22 022 Inactive Lyrica 50 mg capsule RxNorm: 650928 Take 1 Capsule(s) Oral QAM every morning Take 1 capsule by mouth once daily 07/14/19 022 Inactive Levemir FlexTouch U-100 Insulin 100 unit/mL (3 mL) subcutaneous pen RxNorm: 749187 Inject 83 Unit(s) Subcutaneous BID 07/08/19 22 [...] 30 mg tablet,extended release 24 hr RxNorm: 452639 Take 1 Tablet(s) Oral QD 05/05/20 No Stop Date Active hydralazine 50 mg tablet RxNorm: 641949 Take 1 Tablet(s) Oral QID 05/05/20 21 022 Inactive venlafaxine ER 225 mg tablet,extended release 24 hr RxNorm: 325915 Take 1 Tablet(s) Oral QD 05/05/20 21 021 Inactive venlafaxine ER 225 mg tablet,extended release 24 hr RxNorm: 914345 Take 1 Tablet(s) Oral QD 05/05/20 21 022 Inactive hydralazine 50 mg tablet RxNorm: 275895 Take 1 Tablet(s) Oral QID 05/05/20 021 Inactive aspirin 81 mg tablet,delayed release RxNorm: 492419 Take 1 Tablet(s) Oral QD 03/31/20 Inactive Zetia 10 mg tablet RxNorm: 204050 Take 1 Tablet(s) Oral QD 03/31/20 Inactive Vitamin D2 1,250 mcg (50,000 unit) capsule RxNorm: 5918992 Take 1 Capsule(s) Oral QW once a week x 12 weeks 03/31/20 022 Inactive Vitamin D2 1,250 mcg (50,000 unit) capsule RxNorm: 8598183 Take 1 Capsule(s) Oral QW once a week 03/31/20 Inactive Zetia 10 mg tablet RxNorm: 154950 Take 1 Tablet(s) Oral QD 03/31/20 Inactive hydralazine 25 mg tablet RxNorm: 489696 Take 1 Tablet(s) Oral QID 03/31/20 021 Inactive hydralazine 25 mg tablet RxNorm: 203481 Take 1 Tablet(s) Oral QID 03/31/20 021 Inactive hydralazine 10 mg tablet RxNorm: 268167 Take 1 Tablet(s) Oral QID 03/03/20 021 Inactive cephalexin 500 mg tablet RxNorm: 109419 Take 1 Tablet(s) Oral QID 02/27/20 021 Inactive cephalexin 500 mg tablet RxNorm: 719057 Take 1 Tablet(s) Oral QID 02/27/20 021 Inactive lisinopril 40 mg tablet RxNorm: 246129 Take 1 Tablet(s) Oral QD 02/11/20 21 023 Inactive Eliquis 5 mg tablet RxNorm: 3808908 Take 1 Tablet(s) Oral BID 01/05/20 21 022 Inactive Eliquis 5 mg tablet RxNorm: 7015258 Take 2 Tablet(s) Oral QD 01/01/20 21 021 Inactive Lyrica 50 mg capsule RxNorm: 370199 Take 1 Capsule(s) Oral QAM every morning 12/24/19 21 021 Inactive Lyrica 100 mg capsule RxNorm: 994985 Take 1 Capsule(s) Oral QHS every night at bedtime 12/24/19 21 021 Inactive clotrimazole 1 % topical cream RxNorm: 633770 Apply to right foot and toes Topical BID 12/04/19 21 023 Inactive metoprolol succinate ER 200 mg tablet,extended release 24 hr RxNorm: 306943 Take 1 Tablet(s) Oral QD 12/04/19 21 023 Inactive ciprofloxacin 500 mg tablet RxNorm: 462845 Take 1 Tablet(s) Oral QD 11/30/19 21 021 Inactive DX ofloxacin otic drops Accu-Chek Guide test strips RxNorm: USE 1 TO CHECK GLUCOSE 4 TIMES DAILY AND NEEDED 11/15/19 023 Inactive Blood Glucose Test strips RxNorm: Use 1 Test Strip QID at PRN 11/05/19 21 023 Inactive E11.42 lisinopril 30 mg tablet RxNorm: 806988 Take 1 Tablet(s) Oral QD 10/30/19 021 Inactive lisinopril 20 mg tablet RxNorm: 173762 Take 1 Tablet(s) Oral QD 10/23/19 21 021 Inactive lisinopril 20 mg tablet RxNorm: 917923 Take 1 Tablet(s) Oral QD 10/23/19 21 021 Inactive lisinopril 10 mg tablet RxNorm: 873670 Take 1 Tablet(s) Oral QD 10/02/19 21 021 Inactive icosapent ethyl 1 gram capsule RxNorm: 6002924 Take 2 Capsule(s) (2 gm) Oral BID with meals 09/12/19 022 Inactive Okay to dispense one 2gm tab if you have that available. icosapent ethyl 1 gram capsule RxNorm: 5770557 Take 2 Capsule(s) Oral BID 09/12/19 21 021 Inactive Okay to dispense one 2gm tab if you have that available. amlodipine 10 mg tablet RxNorm: 418349 Take 1 Tablet(s) Oral QD 09/04/19 21 022 Inactive aspirin 81 mg tablet,delayed release RxNorm: 690157 Take 1 Tablet(s) Oral QD 09/04/19 21 Inactive Levemir FlexTouch U-100 Insulin 100 unit/mL (3 mL) subcutaneous pen RxNorm: 829688 Inject 150 Unit(s) Subcutaneous BID 09/04/19 21 022 Inactive venlafaxine ER 150 mg tablet,extended release 24 hr RxNorm: 556452 Take 1 Tablet(s) Oral QD 09/04/19 21 Inactive clotrimazole-betame thasone 1 %-0.05 % topical cream RxNorm: 030990 Apply to rash on red area on left abdomen/chest Topical BID 08/10/19 21 Inactive amlodipine 5 mg tablet RxNorm: 471938 Take 1 Tablet(s) Oral QD 07/31/19 Inactive cephalexin 500 mg tablet RxNorm: 528715 Take 1 Tablet(s) Oral BID BID - Twice Daily 07/31/19 021 Inactive Start 08/01/20 pantoprazole 40 mg tablet,delayed release RxNorm: 873056 Take 1 Tablet(s) Oral QAM every morning 07/08/19 022 Inactive senna 8.6 mg tablet RxNorm: 194462 Take 1 Tablet(s) Oral QD 07/08/19 022 Inactive pravastatin 80 mg tablet RxNorm: 393538 Take 1 Tablet(s) Oral QHS every night at bedtime 07/08/19 022 Inactive carbamazepine 200 mg tablet RxNorm: 397433 Take 1 Tablet(s) Oral BID 07/08/19 21 022 Inactive clopidogrel 75 mg tablet RxNorm: 383197 Take 1 Tablet(s) Oral QD 07/08/19 21 021 Inactive Blood Glucose Test strips RxNorm: Use 1 Test Strip QID at PRN 07/08/19 21 021 Inactive E11.42 Novolog Flexpen U-100 Insulin aspart 100 unit/mL (3 mL) subcutaneous RxNorm: 2724644 Administer per sliding scale Milliliter(s) Subcutaneous TID 151-200: 10 u; 201-250: 20 u; 251-300: 30 u; 301-350: 40 u; 351-400: 50 u. 07/08/19 022 Inactive lisinopril 5 mg tablet RxNorm: 367049 Take 1 Tablet(s) Oral QD 07/08/19 021 Inactive Novolog Flexpen U-100 Insulin aspart 100 unit/mL (3 mL) subcutaneous RxNorm: 6020581 Inject 85 Unit(s) Subcutaneous TID 07/08/19 022 Inactive clotrimazole 1 % topical cream RxNorm: 452393 Apply to bilateral groin areas Topical BID 07/08/19 022 Inactive metoprolol succinate ER 200 mg tablet,extended release 24 hr RxNorm: 598950 Take 1 Tablet(s) Oral QD 07/08/19 021 Inactive Vitamin D3 25 mcg (1,000 unit) tablet RxNorm: 182122 Take 1 Tablet(s) Oral QD 07/08/19 021 Inactive isosorbide dinitrate 30 mg tablet RxNorm: 071960 Take 1 Tablet(s) Oral QD 07/08/19 021 Inactive Levemir FlexTouch U-100 Insulin 100 unit/mL (3 mL) subcutaneous pen RxNorm: 052979 Inject 140 Unit(s) Subcutaneous BID 07/08/19 021 Inactive torsemide 20 mg tablet RxNorm: 776759 Take 1 Tablet(s) Oral QD 07/08/19 023 Inactive venlafaxine 75 mg tablet RxNorm: 836918 Take 1 Tablet(s) Oral QD 07/08/19 021 Inactive acetaminophen 500 mg tablet RxNorm: 358427 Take 1 Tablet(s) Oral TID as needed for headache 06/18/19 21 021 Inactive acetaminophen 500 mg tablet RxNorm: 549775 Take 1 Tablet(s) Oral TID as needed for headache 06/18/19 21 021 Inactive Lyrica 100 mg capsule RxNorm: 704641 Take 1 Capsule(s) Oral QHS every night at bedtime 06/11/19 21 021 Inactive Lyrica 50 mg capsule RxNorm: 409549 Take 1 Capsule(s) Oral QAM every morning 06/10/19 21 021 Inactive hydrocortisone 2.5 % topical cream RxNorm: 384724 Apply to bilateral groin creases Topical BID 05/15/20 20 021 Inactive clotrimazole 1 % topical cream RxNorm: 916087 Apply to bilateral groin areas Topical BID 05/15/20 20 021 Inactive Lyrica 50 mg capsule RxNorm: 184999 Take 1 Capsule(s) Oral QAM every morning 05/14/20 20 020 Inactive Lyrica 100 mg capsule RxNorm: 711939 Take 1 Capsule(s) Oral QHS every night [...] Inactive Nystop 100,000 unit/gram topical powder RxNorm: 729858 Apply to abd folds, under breasts and L side of groin Topical BID x 14 days, then BID PRN 04/08/20 20 021 Inactive dx: yeast dermatitis Lyrica 100 mg capsule RxNorm: 398434 Take 1 Capsule(s) Oral QHS every night at bedtime 03/13/20 20 020 Inactive Lyrica 50 mg capsule RxNorm: 524816 Take 1 Capsule(s) Oral QAM every morning 03/13/20 20 Inactive ketoconazole 2 % shampoo RxNorm: 674022 Apply Topical two times a week with showers 03/11/20 Inactive cholecalciferol (vitamin D3) 50 mcg (2,000 unit) tablet RxNorm: 059962 Take 1 Tablet(s) Oral QD 03/11/20 Inactive Zetia 10 mg tablet RxNorm: 607316 Take 1 Tablet(s) Oral QD 03/07/20 Inactive Zetia 10 mg tablet RxNorm: 486452 Take 1 Tablet(s) Oral QD 03/07/20 Inactive Lyrica 50 mg capsule RxNorm: 118587 Take 1 Capsule(s) Oral QAM every morning 02/15/20 Inactive Lyrica 100 mg capsule RxNorm: 576143 Take 1 Capsule(s) Oral QHS every night at bedtime 02/15/20 Inactive Lyrica 100 mg capsule RxNorm: 082052 Take 1 Capsule(s) Oral QHS every night at bedtime 02/15/20 Inactive Lyrica 50 mg capsule RxNorm: 433922 Take 1 Capsule(s) Oral QAM every morning 02/15/20 Inactive venlafaxine ER 75 mg capsule,extended release 24 hr RxNorm: 462708 Take 3 Capsule(s) Oral QD 06/12/19 Active polyethylene glycol 3350 17 gram/dose oral powder RxNorm: 887177 Take 17=1 capful Gram(s) Oral BID as needed mix with 4-8oz of liquid 06/12/19 Active metoprolol succinate ER 200 mg tablet,extended release 24 hr RxNorm: 664916 Take 1 Tablet(s) Oral QD 08/12/19 23 Active loperamide 2 mg capsule RxNorm: 191056 Take 1 Capsule(s) Oral QID as needed 06/12/19 Active hydralazine 50 mg tablet RxNorm: 556536 Take 1 Tablet(s) Oral QID 08/12/19 23 Active icosapent ethyl 1 gram capsule RxNorm: 2509574 Take 2 Capsule(s) (2 gm) Oral BID with meals 10/07/19 23 023 Inactive Okay to dispense one 2gm tab if you have that available. Levemir FlexTouch U-100 Insulin 100 unit/mL (3 mL) subcutaneous pen RxNorm: 999527 Inject 80 Unit(s) Subcutaneous BID 07/14/19 23 023 Inactive Novolog Flexpen U-100 Insulin aspart 100 unit/mL (3 mL) subcutaneous RxNorm: 5699069 Insert 30 Unit(s) Subcutaneous TID with meals [...] Encounter Performer Location Location Address Codes Date ([address]51) Home or Residence Visit Est Pt - [...] without heart failure[ICD10: I11.9] Tapan Shirley [facility] [address] [place] [address] CPT-4: 43907 10/06/2022 Plan of Care Planned Activity Notes Codes Status Date Patient Education: Patient M edication Summary Completed 10/06/2022 Patient Education: Influenza Vaccine Completed 10/06/2022 Referral: [facility] [address] [address] [id number] [place] Referral Records Received 09/21/2022 Appointment: Tapan Shirley WPtel: [address] [facility] [address] [id number] [place] F/U 08/11/2022 Appointment: Tapan Shirley WPtel: [address] [place] F/U 07/14/2022 Appointment: Tapan Shirley WPtel: [address] [facility] [address] [id number] [place] F/U 02/10/2022 Referral: [facility] WPtel: [address] [facility] [address] [id number] [place] Referral Completed 05/28/2021 Referral: General Cardiology [...] Sister Jyotsna involved in his care cell# [phone] Guardian: Don (tapan met in person 09/01/21), now has Lexii (same group as don)Lab Schedule: * 10/06/2022 Diabetes Now closely followed by endo - defer tx plan to thrm. 09/2020 a1c 11.2H. Hypertension BPs running high the past few days. Since he is now followed by nephro (last appt earlier this month), advised nurse to fax BP log to them for review. Patient is currently asymptomatic. Edema Edema improved since last visit. Cintinue torsemide 20mg bid. 09/2022 K 4.1nl. Constipation seen in ED for this, now on laxatives and BMs soft and daily. Pain of right heel Appears consistent with plantar fascitis. Reviewed exercises/stretches he can try. If no improvement or pain worsens, staff to update on bridge. . 10/06/2022
--- OUTSIDE RECORDS SUMMARY | 2022-11-10 00:41 | XMS_ITS | CCD ---
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 Name Role Phone Tapan Shirley PA-C Primary Care Provider Unavailabl e Tapan Shirley PA-C Chronic Care Management Unavaila ble Summary Purpose DataExchange Insurance Providers Payer name Policy type / Coverage type Covered democrat ID Effective Begin Date Effective End Date [place] Part B [id number] Unknown Unknown [place] B [id number] Unknown Unknown Family history Sister Brittany Suggs [...] Residential 09/03/[address]: 1010413 Non-Smoker / No History of Smoking 09/02/[address]: 662371005 No Alcohol Consum ption 09/02/2020 Allergies, Adverse Reactions, Alerts Substance Reaction Codes Entered Date Inactivated Date Status LISINOPRIL RxNorm: 14942 02/12/2020 No Inactive Da te Active Metformin [...] 08/11/2022 Active Coronary artery disease invo lving chickahominy [...] immunization ICD-10: Z23 ICD-9: V03.89 02/10/2022 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 ICD-10: Z79.4 [...] (3 mL) solution subcutaneous insulin pen RxNorm: 132232 Inject 30 Unit(s) Subcutaneous BID 10/07/19 024 Active Humulin R U-500 (Concentrated) Insulin 500 unit/mL subcutaneous soln RxNorm: 877989 Inject 100 Unit(s) Subcutaneous TID 10/07/19 024 Active Ozempic 0.25 mg or 0.5 mg (2 mg/3 mL) subcutaneous pen injector RxNorm: 6425031 Inject 1/2 Milligram(s) Subcutaneous QW once a week 10/07/19 024 Active aripiprazole 15 mg tablet RxNorm: 647273 1/2 TAB (7.5MG) ORALLY DAILY (DX:MAJOR DEPRESSIVE DISORDER) 09/23/19 23 023 Active Accu-Chek Guide test strips RxNorm: Use 1 Test Strip QID 09/15/19 23 024 Active ok to substitute with any covered alternative test strip Lancets,Thin 28 gauge RxNorm: Use 1 as directed QID 09/15/19 23 024 Active torsemide 20 mg tablet RxNorm: 869350 Take 1 Tablet(s) Oral BID 09/09/19 23 024 Active d/c once daily dosing carvedilol 25 mg tablet RxNorm: 255818 Take 1 Tablet(s) Oral QD 08/25/19 23 024 Active pregabalin 150 mg capsule RxNorm: 133048 1 Capsule(s) Oral HS at bed time 08/18/19 23 023 Active pregabalin 100 mg capsule RxNorm: 764334 1 Capsule(s) Oral QAM every morning 08/18/19 23 023 Active carvedilol 25 mg tablet RxNorm: 012137 1 Tablet(s) Oral QD 07/28/19 23 023 Inactive lisinopril 20 mg tablet RxNorm: 979016 Give 1 Tablet(s) Oral QD 07/28/19 23 023 Inactive Lyrica 150 mg capsule RxNorm: 284468 Take 1 Capsule(s) Oral QHS every night at bedtime 07/19/19 023 Inactive d/c 100mg dose Diflucan 150 mg tablet RxNorm: 820838 Take 1 Tablet(s) Oral QD repeat on day 3 and 6 07/19/19 23 023 Inactive pregabalin 100 mg capsule RxNorm: 972775 Take 1 Capsule(s) Oral QAM every morning 07/19/19 23 023 Inactive gatifloxacin 0.5 % eye drops RxNorm: 094371 Instill 1 Drop(s) as directed TID Instill 1 drop in to affected eye(s) starting 1 day prior to surgery and continue until gone (do not exceed 4 weeks). 07/13/19 23 023 Inactive carvedilol 25 mg tablet RxNorm: 895188 2 Tablet(s) Oral BID 07/13/19 23 023 Inactive Humulin R Regular U-100 Insulin 100 unit/mL injection solution RxNorm: 228256 85 Unit(s) Injection TID 07/13/19 23 023 Inactive ketorolac 0.5 % eye drops RxNorm: 484354 Instill 1 Drop(s) as directed QID Instill 1 drop into affected eye(s) 4 times daily starting 1 day prior to surgery and continue until gone (do not exceed 4 weeks). 07/13/19 23 023 Inactive Diflucan 150 mg tablet RxNorm: 660509 Take 1 Tablet(s) Oral QD repeat on day 3 and 6 06/30/19 23 023 Inactive Accu-Chek Guide test strips RxNorm: Use 1 Test Strip QID Use 1 test strip to monitor blood glucose 4 times daily and as needed. Dx:E11.42. 06/23/19 23 023 Inactive ok to substitute with any covered alternative test strip dextromethorphan-gu aifenesin 10 mg-100 mg/5 mL oral liquid RxNorm: 984912 Take 10 Milliliter(s) Oral every 4 hours as needed for cough 06/19/19 023 Inactive dextromethorphan-gu aifenesin 10 mg-100 mg/5 mL oral liquid RxNorm: 871118 Take 10 Milliliter(s) Oral every 4 hours as needed for cough 06/19/19 023 Inactive Lyrica 150 mg capsule RxNorm: 984683 Take 1 Capsule(s) Oral QHS every night at bedtime 06/18/19 023 Inactive d/c 100mg dose aripiprazole 15 mg tablet RxNorm: 745351 1/2 TAB (7.5MG) ORALLY DAILY (DX:MAJOR DEPRESSIVE DISORDER) 06/05/19 23 023 Inactive pregabalin 100 mg capsule RxNorm: 201547 1 Capsule(s) Oral QAM every morning 06/02/19 23 023 Inactive Banophen 50 mg capsule RxNorm: 2345587 Take 1 Capsule(s) Oral Q6H every 6 hours as needed 05/19/19 No Stop Date Active Novolog Flexpen U-100 Insulin aspart 100 unit/mL (3 mL) subcutaneous RxNorm: 8065213 Inject 10 Unit(s) Subcutaneous QHS every night at bedtime with nighttime snack 04/08/20 022 Inactive Novolog Flexpen U-100 Insulin aspart 100 unit/mL (3 mL) subcutaneous RxNorm: 2251881 Inject 42 Unit(s) Subcutaneous TID in addition to sliding scale 04/08/20 Inactive d/c 36u albuterol sulfate HFA 90 mcg/actuation aerosol inhaler RxNorm: 1263924 Take 2 Puff(s) Inhalation Q4H every four hours as needed as needed for SOB, cough, or wheezing 04/07/20 030 Active Banophen 50 mg capsule RxNorm: 6974845 Take 1 Capsule(s) Oral Q6H every 6 hours as needed 04/06/20 023 Inactive diphenhydramine 50 mg tablet RxNorm: 2574459 Take 1 Tablet(s) Oral Q6H every 6 hours as needed 04/06/20 022 Inactive diphenhydramine 50 mg tablet RxNorm: 8076966 1 Tablet(s) Oral Q6H every 6 hours as needed 04/06/20 022 Inactive Abilify 15 mg tablet RxNorm: 316319 1/2 Tablet(s) Oral QD 03/10/20 023 Inactive Shingrix (PF) 50 mcg/0.5 mL intramuscular suspension, kit RxNorm: 4399916 Administer 1/2 Milliliter(s) Intramuscular QD one time shingrix step 2 ( step 1 given 11/04/21) WITH needle - Nursing please administer upon arrival and once administered post a bridge message 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, 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, 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, and lot# so we can update [facility] 02/18/20 022 Inactive dispense with needle Shingrix (PF) 50 mcg/0.5 mL intramuscular suspension, kit RxNorm: 0469368 Administer 1/2 Milliliter(s) Intramuscular QD one time shingrix step 2 ( step 1 given 6/21/22) WITH needle - Nursing please administer upon arrival and once administered post a bridge message with 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 of administration, 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, expiration date, and lot# so we can update [facility] 02/18/20 22 Inactive dispense with needle acetaminophen 500 mg tablet RxNorm: 936065 Take 1 Tablet(s) Oral TID 01/08/20 22 023 Active d/c PRN order polyethylene glycol 3350 17 gram/dose oral powder RxNorm: 900724 Take 17=1 capful Gram(s) Oral QD mix with 4-8oz of liquid 01/08/20 22 023 Active take this in addition to BID prn order Lyrica 100 mg capsule RxNorm: 824804 Take 1 Capsule(s) Oral QAM every morning 01/08/20 22 022 Inactive d/c 50mg dose Lyrica 150 mg capsule RxNorm: 987938 Take 1 Capsule(s) Oral QHS every night at bedtime 01/08/20 22 023 Inactive d/c 100mg dose Abilify 5 mg tablet RxNorm: 203980 Take 1 Tablet(s) Oral QD take 1 tab po QD #30 refill 5 dx: MDD 12/12/19 22 022 Inactive Abilify 5 mg tablet RxNorm: 387311 Take 1 Tablet(s) Oral QD take 1 tab po QD #30 refill 5 dx: MDD 12/12/19 22 022 Inactive chlorthalidone 25 mg tablet RxNorm: 155627 Take 1 Tablet(s) Oral QAM every morning 12/10/19 22 023 Active Novolog Flexpen U-100 Insulin aspart 100 unit/mL (3 mL) subcutaneous RxNorm: 3183093 Inject 42 Unit(s) Subcutaneous TID in addition to sliding scale 12/10/19 22 022 Inactive d/c 36u pregabalin 50 mg capsule RxNorm: 239052 Take 1 Capsule(s) Oral QAM every morning 11/12/19 22 022 Inactive tetanus-diphtheria toxoids-Td 2 Lf unit-2 Lf unit/0.5 mL IM suspension RxNorm: 139 Take 0.5 Miscellaneous Intramuscular 11/12/19 22 022 Inactive need tdap - nursing to administer upon arrival pregabalin 50 mg capsule RxNorm: 913217 Take 1 Capsule(s) Oral QAM every morning 10/16/19 22 022 Inactive pregabalin 50 mg capsule RxNorm: 079899 Take 1 Capsule(s) Oral QAM every morning 10/16/19 22 022 Inactive pregabalin 50 mg capsule RxNorm: 179503 1 Capsule(s) Oral QAM every morning 10/15/19 22 022 Inactive Shingrix (PF) 50 mcg/0.5 mL intramuscular suspension, kit RxNorm: 2844586 Administer 1/2 Milliliter(s) Intramuscular one time Nursing please administer upon arrival and once administered post a bridge message with 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 10/09/19 22 022 Inactive shingrix step 1 cholecalciferol (vitamin D3) 1,250 mcg (50,000 unit) capsule RxNorm: 290922 Take 1 Capsule(s) Oral QW once a [...] aspart 100 unit/mL (3 mL) subcutaneous RxNorm: 6963669 Inject 10 Unit(s) Subcutaneous QHS every night at bedtime with nighttime snack 10/08/19 22 Inactive Shingrix (PF) 50 mcg/0.5 mL intramuscular suspension, kit RxNorm: 2322714 ADMINISTER 2-DOSE SERIES PER CDC GUIDELINES 10/08/19 22 Active Shingrix (PF) 50 mcg/0.5 mL intramuscular suspension, kit RxNorm: 9545795 ADMINISTER 2-DOSE SERIES PER CDC GUIDELINES 10/08/19 22 Inactive Novolog Flexpen U-100 Insulin aspart 100 unit/mL (3 mL) subcutaneous RxNorm: 1041882 Inject 36 Unit(s) Subcutaneous TID in addition to sliding scale 10/08/19 22 Inactive Novofine Autocover 30 gauge x 1/3 needle RxNorm: Use 1 Miscellaneous UD as directed Use 1 needle as directed to administer insulin 5 times a day Dx:E11.42. 10/03/19 Inactive ok to substitute with any covered alternative pen needle benzoyl peroxide 10 % topical cleanser RxNorm: 540680 Apply 1 Application Topical QD apply to face, wash rinse and dry once daily (may change to QOD if drying) 08/19/19 022 Inactive (%covered by insurance) #60ml refill 11 dx: acne benzoyl peroxide 10 % topical cleanser RxNorm: 682918 Apply 1 Application Topical QD apply to face, wash rinse and dry once daily (may change to QOD if drying) 08/19/19 22 022 Inactive (%covered by insurance) #60ml refill 11 dx: acne benzoyl peroxide 10 % topical cleanser RxNorm: 525047 Apply 1 Application Topical QD apply to face, wash rinse and dry once daily (may change to QOD if drying) 08/19/19 22 022 Inactive (%covered by insurance) #60ml refill 11 dx: acne Lyrica 50 mg capsule RxNorm: 033372 Take 1 Capsule(s) Oral QAM every morning Take 1 capsule by mouth once daily 08/19/19 22 022 Inactive benzoyl peroxide 10 % topical cleanser RxNorm: 238276 Apply 1 Application Topical QD apply to face, wash rinse and dry once daily (may change to QOD if drying) 08/19/19 22 Inactive (%covered by insurance) #60ml refill 11 dx: acne Lyrica 100 mg capsule RxNorm: 033512 Take 1 Capsule(s) Oral QHS every night at bedtime Take 1 capsule by mouth once daily at bedtime 08/19/19 22 022 Inactive Lyrica 100 mg capsule RxNorm: 891647 Take 1 Capsule(s) Oral QHS every night at bedtime Take 1 capsule by mouth once daily at bedtime 08/16/19 22 022 Inactive Lyrica 50 mg capsule RxNorm: 716722 Take 1 Capsule(s) Oral QAM every morning Take 1 capsule by mouth once daily 08/16/19 22 Inactive Levemir FlexTouch U-100 Insulin 100 unit/mL (3 mL) subcutaneous pen RxNorm: 564236 Inject 86 Unit(s) Subcutaneous BID 08/05/19 22 022 Inactive d/c 83units BID Lyrica 100 mg capsule RxNorm: 993031 Take 1 Capsule(s) Oral QHS every night at bedtime Take 1 capsule by mouth once daily at bedtime 07/14/19 22 022 Inactive Lyrica 50 mg capsule RxNorm: 390105 Take 1 Capsule(s) Oral QAM every morning Take 1 capsule by mouth once daily 07/14/19 22 022 Inactive Levemir FlexTouch U-100 Insulin 100 unit/mL (3 mL) subcutaneous pen RxNorm: 741262 Inject 83 Unit(s) Subcutaneous BID 07/08/19 22 [...] 30 mg tablet,extended release 24 hr RxNorm: 809619 Take 1 Tablet(s) Oral QD 05/05/20 No Stop Date Active hydralazine 50 mg tablet RxNorm: 809983 Take 1 Tablet(s) Oral QID 05/05/20 21 022 Inactive venlafaxine ER 225 mg tablet,extended release 24 hr RxNorm: 908266 Take 1 Tablet(s) Oral QD 05/05/20 21 021 Inactive venlafaxine ER 225 mg tablet,extended release 24 hr RxNorm: 376251 Take 1 Tablet(s) Oral QD 05/05/20 21 022 Inactive hydralazine 50 mg tablet RxNorm: 024316 Take 1 Tablet(s) Oral QID 05/05/20 21 Inactive aspirin 81 mg tablet,delayed release RxNorm: 659997 Take 1 Tablet(s) Oral QD 03/31/20 21 022 Inactive Zetia 10 mg tablet RxNorm: 959119 Take 1 Tablet(s) Oral QD 03/31/20 Inactive Vitamin D2 1,250 mcg (50,000 unit) capsule RxNorm: 5703450 Take 1 Capsule(s) Oral QW once a week x 12 weeks 03/31/20 Inactive Vitamin D2 1,250 mcg (50,000 unit) capsule RxNorm: 7871793 Take 1 Capsule(s) Oral QW once a week 03/31/20 Inactive Zetia 10 mg tablet RxNorm: 499156 Take 1 Tablet(s) Oral QD 03/31/20 Inactive hydralazine 25 mg tablet RxNorm: 072621 Take 1 Tablet(s) Oral QID 03/31/20 Inactive hydralazine 25 mg tablet RxNorm: 146072 Take 1 Tablet(s) Oral QID 03/31/20 021 Inactive hydralazine 10 mg tablet RxNorm: 803383 Take 1 Tablet(s) Oral QID 03/03/20 021 Inactive cephalexin 500 mg tablet RxNorm: 957560 Take 1 Tablet(s) Oral QID 02/27/20 021 Inactive cephalexin 500 mg tablet RxNorm: 390590 Take 1 Tablet(s) Oral QID 02/27/20 021 Inactive lisinopril 40 mg tablet RxNorm: 333450 Take 1 Tablet(s) Oral QD 02/11/20 023 Inactive Eliquis 5 mg tablet RxNorm: 2161898 Take 1 Tablet(s) Oral BID 01/05/20 022 Inactive Eliquis 5 mg tablet RxNorm: 7413079 Take 2 Tablet(s) Oral QD 01/01/20 021 Inactive Lyrica 50 mg capsule RxNorm: 956443 Take 1 Capsule(s) Oral QAM every morning 12/24/19 021 Inactive Lyrica 100 mg capsule RxNorm: 797632 Take 1 Capsule(s) Oral QHS every night at bedtime 12/24/19 021 Inactive clotrimazole 1 % topical cream RxNorm: 811345 Apply to right foot and toes Topical BID 12/04/19 21 023 Inactive metoprolol succinate ER 200 mg tablet,extended release 24 hr RxNorm: 665257 Take 1 Tablet(s) Oral QD 12/04/19 21 023 Inactive ciprofloxacin 500 mg tablet RxNorm: 567071 Take 1 Tablet(s) Oral QD 11/30/19 021 Inactive DX ofloxacin otic drops Accu-Chek Guide test strips RxNorm: USE 1 TO CHECK GLUCOSE 4 TIMES DAILY AND NEEDED 11/15/19 21 023 Inactive Blood Glucose Test strips RxNorm: Use 1 Test Strip QID at PRN 11/05/19 023 Inactive E11.42 lisinopril 30 mg tablet RxNorm: 793678 Take 1 Tablet(s) Oral QD 10/30/19 021 Inactive lisinopril 20 mg tablet RxNorm: 219106 Take 1 Tablet(s) Oral QD 10/23/19 021 Inactive lisinopril 20 mg tablet RxNorm: 798610 Take 1 Tablet(s) Oral QD 10/23/19 021 Inactive lisinopril 10 mg tablet RxNorm: 843723 Take 1 Tablet(s) Oral QD 10/02/19 021 Inactive icosapent ethyl 1 gram capsule RxNorm: 6008434 Take 2 Capsule(s) (2 gm) Oral BID with meals 09/12/19 022 Inactive Okay to dispense one 2gm tab if you have that available. icosapent ethyl 1 gram capsule RxNorm: 4304339 Take 2 Capsule(s) Oral BID 09/12/19 021 Inactive Okay to dispense one 2gm tab if you have that available. amlodipine 10 mg tablet RxNorm: 211649 Take 1 Tablet(s) Oral QD 09/04/19 21 022 Inactive aspirin 81 mg tablet,delayed release RxNorm: 875741 Take 1 Tablet(s) Oral QD 09/04/19 21 021 Inactive Levemir FlexTouch U-100 Insulin 100 unit/mL (3 mL) subcutaneous pen RxNorm: 064728 Inject 150 Unit(s) Subcutaneous BID 09/04/19 21 022 Inactive venlafaxine ER 150 mg tablet,extended release 24 hr RxNorm: 300508 Take 1 Tablet(s) Oral QD 09/04/19 Inactive clotrimazole-betame thasone 1 %-0.05 % topical cream RxNorm: 918716 Apply to rash on red area on left abdomen/chest Topical BID 08/10/19 21 Inactive amlodipine 5 mg tablet RxNorm: 681213 Take 1 Tablet(s) Oral QD 07/31/19 Inactive cephalexin 500 mg tablet RxNorm: 683847 Take 1 Tablet(s) Oral BID BID - Twice Daily 07/31/19 Inactive Start 08/01/20 pantoprazole 40 mg tablet,delayed release RxNorm: 006413 Take 1 Tablet(s) Oral QAM every morning 07/08/19 022 Inactive senna 8.6 mg tablet RxNorm: 703495 Take 1 Tablet(s) Oral QD 07/08/19 022 Inactive pravastatin 80 mg tablet RxNorm: 436112 Take 1 Tablet(s) Oral QHS every night at bedtime 07/08/19 022 Inactive carbamazepine 200 mg tablet RxNorm: 613037 Take 1 Tablet(s) Oral BID 07/08/19 022 Inactive clopidogrel 75 mg tablet RxNorm: 812628 Take 1 Tablet(s) Oral QD 07/08/19 021 Inactive Blood Glucose Test strips RxNorm: Use 1 Test Strip QID at PRN 07/08/19 21 Inactive E11.42 Novolog Flexpen U-100 Insulin aspart 100 unit/mL (3 mL) subcutaneous RxNorm: 0523333 Administer per sliding scale Milliliter(s) Subcutaneous TID 151-200: 10 u; 201-250: 20 u; 251-300: 30 u; 301-350: 40 u; 351-400: 50 u. 07/08/19 21 022 Inactive lisinopril 5 mg tablet RxNorm: 073852 Take 1 Tablet(s) Oral QD 07/08/19 21 021 Inactive Novolog Flexpen U-100 Insulin aspart 100 unit/mL (3 mL) subcutaneous RxNorm: 3636373 Inject 85 Unit(s) Subcutaneous TID 07/08/19 21 022 Inactive clotrimazole 1 % topical cream RxNorm: 037555 Apply to bilateral groin areas Topical BID 07/08/19 21 022 Inactive metoprolol succinate ER 200 mg tablet,extended release 24 hr RxNorm: 411084 Take 1 Tablet(s) Oral QD 07/08/19 021 Inactive Vitamin D3 25 mcg (1,000 unit) tablet RxNorm: 334750 Take 1 Tablet(s) Oral QD 07/08/19 021 Inactive isosorbide dinitrate 30 mg tablet RxNorm: 401307 Take 1 Tablet(s) Oral QD 07/08/19 21 021 Inactive Levemir FlexTouch U-100 Insulin 100 unit/mL (3 mL) subcutaneous pen RxNorm: 103309 Inject 140 Unit(s) Subcutaneous BID 07/08/19 21 021 Inactive torsemide 20 mg tablet RxNorm: 141473 Take 1 Tablet(s) Oral QD 07/08/19 023 Inactive venlafaxine 75 mg tablet RxNorm: 309696 Take 1 Tablet(s) Oral QD 07/08/19 021 Inactive acetaminophen 500 mg tablet RxNorm: 476193 Take 1 Tablet(s) Oral TID as needed for headache 06/18/19 21 021 Inactive acetaminophen 500 mg tablet RxNorm: 164389 Take 1 Tablet(s) Oral TID as needed for headache 06/18/19 021 Inactive Lyrica 100 mg capsule RxNorm: 716005 Take 1 Capsule(s) Oral QHS every night at bedtime 06/11/19 021 Inactive Lyrica 50 mg capsule RxNorm: 815555 Take 1 Capsule(s) Oral QAM every morning 06/10/19 21 021 Inactive hydrocortisone 2.5 % topical cream RxNorm: 709023 Apply to bilateral groin creases Topical BID 05/15/20 20 021 Inactive clotrimazole 1 % topical cream RxNorm: 602749 Apply to bilateral groin areas Topical BID 05/15/20 20 021 Inactive Lyrica 50 mg capsule RxNorm: 910657 Take 1 Capsule(s) Oral QAM every morning 05/14/20 20 Inactive Lyrica 100 mg capsule RxNorm: 809044 Take 1 Capsule(s) Oral QHS every night [...] Inactive Nystop 100,000 unit/gram topical powder RxNorm: 173190 Apply to abd folds, under breasts and L side of groin Topical BID x 14 days, then BID PRN 04/08/20 20 021 Inactive dx: yeast dermatitis Lyrica 100 mg capsule RxNorm: 354357 Take 1 Capsule(s) Oral QHS every night at bedtime 03/13/20 20 020 Inactive Lyrica 50 mg capsule RxNorm: 322443 Take 1 Capsule(s) Oral QAM every morning 03/13/20 20 020 Inactive ketoconazole 2 % shampoo RxNorm: 902011 Apply Topical two times a week with showers 03/11/20 Inactive cholecalciferol (vitamin D3) 50 mcg (2,000 unit) tablet RxNorm: 679381 Take 1 Tablet(s) Oral QD 03/11/20 Inactive Zetia 10 mg tablet RxNorm: 797652 Take 1 Tablet(s) Oral QD 03/07/20 Inactive Zetia 10 mg tablet RxNorm: 081915 Take 1 Tablet(s) Oral QD 03/07/20 Inactive Lyrica 50 mg capsule RxNorm: 178311 Take 1 Capsule(s) Oral QAM every morning 02/15/20 20 Inactive Lyrica 100 mg capsule RxNorm: 494874 Take 1 Capsule(s) Oral QHS every night at bedtime 02/15/20 20 Inactive Lyrica 100 mg capsule RxNorm: 977397 Take 1 Capsule(s) Oral QHS every night at bedtime 02/15/20 Inactive Lyrica 50 mg capsule RxNorm: 664090 Take 1 Capsule(s) Oral QAM every morning 02/15/20 20 Inactive venlafaxine ER 75 mg capsule,extended release 24 hr RxNorm: 920556 Take 3 Capsule(s) Oral QD 06/12/19 Active polyethylene glycol 3350 17 gram/dose oral powder RxNorm: 196617 Take 17=1 capful Gram(s) Oral BID as needed mix with 4-8oz of liquid 06/12/19 Active metoprolol succinate ER 200 mg tablet,extended release 24 hr RxNorm: 668986 Take 1 Tablet(s) Oral QD 08/12/19 Active loperamide 2 mg capsule RxNorm: 472427 Take 1 Capsule(s) Oral QID as needed 06/12/19 Active hydralazine 50 mg tablet RxNorm: 846261 Take 1 Tablet(s) Oral QID 08/12/19 Active icosapent ethyl 1 gram capsule RxNorm: 4200824 Take 2 Capsule(s) (2 gm) Oral BID with meals 10/07/19 23 023 Inactive Okay to dispense one 2gm tab if you have that available. Levemir FlexTouch U-100 Insulin 100 unit/mL (3 mL) subcutaneous pen RxNorm: 274719 Inject 80 Unit(s) Subcutaneous BID 07/14/19 23 023 Inactive Novolog Flexpen U-100 Insulin aspart 100 unit/mL (3 mL) subcutaneous RxNorm: 1161522 Insert 30 Unit(s) Subcutaneous TID with meals [...] [facility] WPtel: [phone] [place], [address] [id number] [place] Referral Records Received 09/21/2022 Referral: [facility] WPtel: [address] [id number] [place] Referral Completed 05/28/2021 Referral: General Cardiology Referral Complet ed 01/03/2021 Referral: General Psychologist Referral Close d Instructions Comment Date Leonid is a Male being seen living at [facility]. Initial [facility] visit 01/2020. PMHx including DMII, CAD w/ 5 stents, Depression, Seizure Disorder and CKD stage 3. He moved into [facility] in 12/2019 but after a hospitalization 05/2021 [facility] attention. Sister Jyotsna involved in his care cell# [phone] Guardian: Don (tapan met in person 09/01/21), now has Lexii (same group as don)Lab Schedule: * 10/06/2022
--- OUTSIDE RECORDS SUMMARY | 2022-11-10 00:42 | XMS_ITS | CCD ---
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 Ring Facer Name Role Phone Tapan Shirley PA-C Primary Care Provider Unavailabl e Tapan Shirley PA-C Chronic Care Management Unavaila ble Summary Purpose DataExchange Insurance Providers Payer name Policy type / Coverage type Covered green party ID Effective Begin Date Effective End Date [place] [id number] Unknown Unknown [place] B [id number] Unknown Unknown Family history Sister Brittany Suggs [...] Longterm 09/03/[address]: 2615666 Non-Smoker / No History of Smoking 09/02/[address]: 486886477 No Alcohol Consum ption 09/02/2020 Allergies, Adverse Reactions, Alerts Substance Reaction Codes Entered Date Inactivated Date Status LISINOPRIL RxNorm: 66240 02/12/2020 No Inactive Da te Active Metformin [...] 08/11/2022 Active Coronary artery disease invo lving [place] coronary artery of [place] heart, angina presence unspecified ICD-10: I25.10 ICD-9: [...] immunization ICD-10: Z23 ICD-9: V03.89 02/10/2022 Resolved director long term care (current) use of [...] Instructions hydrocortisone 2.5 % topical cream RxNorm: 734711 Apply 1/2 Gram(s) Topical BID as needed 11/10/19 No Stop Date Active clotrimazole 1 % topical cream RxNorm: 318771 Apply 1/2 Gram(s) Topical BID Apply to affected areas of groin, periarea, and abdominal topically 2 times daily 11/10/19 023 Active Levemir FlexPen 100 unit/mL (3 mL) solution subcutaneous insulin pen RxNorm: 731750 Inject 30 Unit(s) Subcutaneous BID 10/07/19 23 024 Active Humulin R U-500 (Concentrated) Insulin 500 unit/mL subcutaneous soln RxNorm: 098677 Inject 100 Unit(s) Subcutaneous TID 10/07/19 024 Active Ozempic 0.25 mg or 0.5 mg (2 mg/3 mL) subcutaneous pen injector RxNorm: 1107763 Inject 1/2 Milligram(s) Subcutaneous QW once a week 10/07/19 024 Active aripiprazole 15 mg tablet RxNorm: 733054 1/2 TAB (7.5MG) ORALLY DAILY (DX:MAJOR DEPRESSIVE DISORDER) 09/23/19 023 Active Accu-Chek Guide test strips RxNorm: Use 1 Test Strip QID 09/15/19 024 Active ok to substitute with any covered alternative test strip Lancets,Thin 28 gauge RxNorm: Use 1 as directed QID 09/15/19 024 Active torsemide 20 mg tablet RxNorm: 612231 Take 1 Tablet(s) Oral BID 09/09/19 024 Active d/c once daily dosing carvedilol 25 mg tablet RxNorm: 056029 Take 1 Tablet(s) Oral QD 08/25/19 024 Active pregabalin 150 mg capsule RxNorm: 132956 1 Capsule(s) Oral HS at bed time 08/18/19 023 Active pregabalin 100 mg capsule RxNorm: 403437 1 Capsule(s) Oral QAM every morning 08/18/19 023 Active carvedilol 25 mg tablet RxNorm: 659399 1 Tablet(s) Oral QD 07/28/19 023 Inactive lisinopril 20 mg tablet RxNorm: 635176 Give 1 Tablet(s) Oral QD 07/28/19 023 Inactive Lyrica 150 mg capsule RxNorm: 412540 Take 1 Capsule(s) Oral QHS every night at bedtime 07/19/19 023 Inactive d/c 100mg dose Diflucan 150 mg tablet RxNorm: 012151 Take 1 Tablet(s) Oral QD repeat on day 3 and 6 07/19/19 023 Inactive pregabalin 100 mg capsule RxNorm: 576164 Take 1 Capsule(s) Oral QAM every morning 07/19/19 23 023 Inactive gatifloxacin 0.5 % eye drops RxNorm: 351421 Instill 1 Drop(s) as directed TID Instill 1 drop in to affected eye(s) starting 1 day prior to surgery and continue until gone (do not exceed 4 weeks). 07/13/19 23 023 Inactive carvedilol 25 mg tablet RxNorm: 437693 2 Tablet(s) Oral BID 07/13/19 023 Inactive Humulin R Regular U-100 Insulin 100 unit/mL injection solution RxNorm: 778627 85 Unit(s) Injection TID 07/13/19 023 Inactive ketorolac 0.5 % eye drops RxNorm: 154352 Instill 1 Drop(s) as directed QID Instill 1 drop into affected eye(s) 4 times daily starting 1 day prior to surgery and continue until gone (do not exceed 4 weeks). 07/13/19 023 Inactive Diflucan 150 mg tablet RxNorm: 109908 Take 1 Tablet(s) Oral QD repeat on day 3 and 6 06/30/19 23 023 Inactive Accu-Chek Guide test strips RxNorm: Use 1 Test Strip QID Use 1 test strip to monitor blood glucose 4 times daily and as needed. Dx:E11.42. 06/23/19 023 Inactive ok to substitute with any covered alternative test strip dextromethorphan-gu aifenesin 10 mg-100 mg/5 mL oral liquid RxNorm: 333725 Take 10 Milliliter(s) Oral every 4 hours as needed for cough 06/19/19 23 023 Inactive dextromethorphan-gu aifenesin 10 mg-100 mg/5 mL oral liquid RxNorm: 096315 Take 10 Milliliter(s) Oral every 4 hours as needed for cough 06/19/19 23 023 Inactive Lyrica 150 mg capsule RxNorm: 135732 Take 1 Capsule(s) Oral QHS every night at bedtime 06/18/19 23 023 Inactive d/c 100mg dose aripiprazole 15 mg tablet RxNorm: 424564 1/2 TAB (7.5MG) ORALLY DAILY (DX:MAJOR DEPRESSIVE DISORDER) 06/05/19 023 Inactive pregabalin 100 mg capsule RxNorm: 113357 1 Capsule(s) Oral QAM every morning 06/02/19 023 Inactive Banophen 50 mg capsule RxNorm: 8562035 Take 1 Capsule(s) Oral Q6H every 6 hours as needed 05/19/19 23 No Stop Date Active Novolog Flexpen U-100 Insulin aspart 100 unit/mL (3 mL) subcutaneous RxNorm: 7103873 Inject 10 Unit(s) Subcutaneous QHS every night at bedtime with nighttime snack 04/08/20 022 Inactive Novolog Flexpen U-100 Insulin aspart 100 unit/mL (3 mL) subcutaneous RxNorm: 2020060 Inject 42 Unit(s) Subcutaneous TID in addition to sliding scale 04/08/20 022 Inactive d/c 36u albuterol sulfate HFA 90 mcg/actuation aerosol inhaler RxNorm: 9580340 Take 2 Puff(s) Inhalation Q4H every four hours as needed as needed for SOB, cough, or wheezing 04/07/20 030 Active Banophen 50 mg capsule RxNorm: 4112404 Take 1 Capsule(s) Oral Q6H every 6 hours as needed 04/06/20 023 Inactive diphenhydramine 50 mg tablet RxNorm: 1681313 Take 1 Tablet(s) Oral Q6H every 6 hours as needed 04/06/20 22 022 Inactive diphenhydramine 50 mg tablet RxNorm: 9681241 1 Tablet(s) Oral Q6H every 6 hours as needed 04/06/20 22 022 Inactive Abilify 15 mg tablet RxNorm: 768758 1/2 Tablet(s) Oral QD 03/10/20 22 023 Inactive Shingrix (PF) 50 mcg/0.5 mL intramuscular suspension, kit RxNorm: 5475654 Administer 1/2 Milliliter(s) Intramuscular QD one time shingrix step 2 ( step 1 given 11/04/21) WITH needle - Nursing please administer upon arrival and once administered post a bridge message with date of administration, refrigeration installer, expiration date, and lot# so we can update [facility] 02/18/20 22 022 Inactive dispense with needle Shingrix (PF) 50 mcg/0.5 mL intramuscular suspension, kit RxNorm: 7853270 Administer 1/2 Milliliter(s) Intramuscular QD one time shingrix step 2 ( step 1 given 11/04/21) WITH needle - Nursing please administer upon arrival and once administered post a bridge message with date of administration, refrigeration installer, expiration date, and lot# so we can update [facility] 02/18/20 22 022 Inactive dispense with needle acetaminophen 500 mg tablet RxNorm: 776758 Take 1 Tablet(s) Oral TID 01/08/20 22 023 Active d/c PRN order polyethylene glycol 3350 17 gram/dose oral powder RxNorm: 803353 Take 17=1 capful Gram(s) Oral QD mix with 4-8oz of liquid 01/08/20 22 023 Active take this in addition to BID prn order Lyrica 100 mg capsule RxNorm: 148522 Take 1 Capsule(s) Oral QAM every morning 01/08/20 22 022 Inactive d/c 50mg dose Lyrica 150 mg capsule RxNorm: 502306 Take 1 Capsule(s) Oral QHS every night at bedtime 01/08/20 22 023 Inactive d/c 100mg dose Abilify 5 mg tablet RxNorm: 629368 Take 1 Tablet(s) Oral QD take 1 tab po QD #30 refill 5 dx: MDD 12/12/19 22 022 Inactive Abilify 5 mg tablet RxNorm: 388948 Take 1 Tablet(s) Oral QD take 1 tab po QD #30 refill 5 dx: MDD 12/12/19 22 022 Inactive chlorthalidone 25 mg tablet RxNorm: 604701 Take 1 Tablet(s) Oral QAM every morning 12/10/19 22 023 Active Novolog Flexpen U-100 Insulin aspart 100 unit/mL (3 mL) subcutaneous RxNorm: 6842782 Inject 42 Unit(s) Subcutaneous TID in addition to sliding scale 12/10/19 22 022 Inactive d/c 36u pregabalin 50 mg capsule RxNorm: 302965 Take 1 Capsule(s) Oral QAM every morning 11/12/19 22 Inactive tetanus-diphtheria toxoids-Td 2 Lf unit-2 Lf unit/0.5 mL IM suspension RxNorm: 139 Take 0.5 Miscellaneous Intramuscular 11/12/19 22 Inactive need tdap - nursing to administer upon arrival pregabalin 50 mg capsule RxNorm: 751862 Take 1 Capsule(s) Oral QAM every morning 10/16/19 22 022 Inactive pregabalin 50 mg capsule RxNorm: 980641 Take 1 Capsule(s) Oral QAM every morning 10/16/19 22 022 Inactive pregabalin 50 mg capsule RxNorm: 628282 1 Capsule(s) Oral QAM every morning 10/15/19 22 022 Inactive Shingrix (PF) 50 mcg/0.5 mL intramuscular suspension, kit RxNorm: 5222064 Administer 1/2 Milliliter(s) Intramuscular one time Nursing please administer upon arrival and once administered post a bridge message with date of administration, refrigeration installer, expiration date, and lot# so we can update [facility]. 10/09/19 22 022 Inactive shingrix step 1 Shingrix (PF) 50 mcg/0.5 mL intramuscular suspension, kit RxNorm: 2208749 Administer 1/2 Milliliter(s) Intramuscular one time Nursing please administer upon arrival and once administered post a bridge message with date of administration, refrigeration installer, expiration date, and lot# so we can update [facility]. 10/09/19 22 022 Inactive shingrix step 1 cholecalciferol (vitamin D3) 1,250 mcg (50,000 unit) capsule RxNorm: 240169 Take 1 Capsule(s) Oral QW once a [...] aspart 100 unit/mL (3 mL) subcutaneous RxNorm: 4354060 Inject 10 Unit(s) Subcutaneous QHS every night at bedtime with nighttime snack 10/08/19 22 Inactive Shingrix (PF) 50 mcg/0.5 mL intramuscular suspension, kit RxNorm: 3841620 ADMINISTER 2-DOSE SERIES PER CDC GUIDELINES 10/08/19 22 Active Shingrix (PF) 50 mcg/0.5 mL intramuscular suspension, kit RxNorm: 5923330 ADMINISTER 2-DOSE SERIES PER CDC GUIDELINES 10/08/19 22 Inactive Novolog Flexpen U-100 Insulin aspart 100 unit/mL (3 mL) subcutaneous RxNorm: 8654580 Inject 36 Unit(s) Subcutaneous TID in addition to sliding scale 10/08/19 22 Inactive Novofine Autocover 30 gauge x 1/3 needle RxNorm: Use 1 Miscellaneous UD as directed Use 1 needle as directed to administer insulin 5 times a day Dx:E11.42. 10/03/19 Inactive ok to substitute with any covered alternative pen needle benzoyl peroxide 10 % topical cleanser RxNorm: 835034 Apply 1 Application Topical QD apply to face, wash rinse and dry once daily (may change to QOD if drying) 08/19/19 22 022 Inactive (%covered by insurance) #60ml refill 11 dx: acne benzoyl peroxide 10 % topical cleanser RxNorm: 640700 Apply 1 Application Topical QD apply to face, wash rinse and dry once daily (may change to QOD if drying) 08/19/19 22 022 Inactive (%covered by insurance) #60ml refill 11 dx: acne benzoyl peroxide 10 % topical cleanser RxNorm: 225922 Apply 1 Application Topical QD apply to face, wash rinse and dry once daily (may change to QOD if drying) 08/19/19 22 022 Inactive (%covered by insurance) #60ml refill 11 dx: acne Lyrica 50 mg capsule RxNorm: 075801 Take 1 Capsule(s) Oral QAM every morning Take 1 capsule by mouth once daily 08/19/19 22 022 Inactive benzoyl peroxide 10 % topical cleanser RxNorm: 050948 Apply 1 Application Topical QD apply to face, wash rinse and dry once daily (may change to QOD if drying) 08/19/19 22 022 Inactive (%covered by insurance) #60ml refill 11 dx: acne Lyrica 100 mg capsule RxNorm: 175873 Take 1 Capsule(s) Oral QHS every night at bedtime Take 1 capsule by mouth once daily at bedtime 08/19/19 022 Inactive Lyrica 100 mg capsule RxNorm: 166255 Take 1 Capsule(s) Oral QHS every night at bedtime Take 1 capsule by mouth once daily at bedtime 08/16/19 22 022 Inactive Lyrica 50 mg capsule RxNorm: 682228 Take 1 Capsule(s) Oral QAM every morning Take 1 capsule by mouth once daily 08/16/19 22 022 Inactive Levemir FlexTouch U-100 Insulin 100 unit/mL (3 mL) subcutaneous pen RxNorm: 655924 Inject 86 Unit(s) Subcutaneous BID 08/05/19 22 022 Inactive d/c 83units BID Lyrica 100 mg capsule RxNorm: 636984 Take 1 Capsule(s) Oral QHS every night at bedtime Take 1 capsule by mouth once daily at bedtime 07/14/19 22 022 Inactive Lyrica 50 mg capsule RxNorm: 536478 Take 1 Capsule(s) Oral QAM every morning Take 1 capsule by mouth once daily 07/14/19 22 022 Inactive Levemir FlexTouch U-100 Insulin 100 unit/mL (3 mL) subcutaneous pen RxNorm: 467451 Inject 83 Unit(s) Subcutaneous BID 07/08/19 22 [...] glucose 4 times daily and as needed. Dx:42. 06/05/19 022 Inactive ok to substitute with any covered alternative test strip isosorbide mononitrate ER 30 mg tablet,extended release 24 hr RxNorm: 089729 Take 1 Tablet(s) Oral QD 05/05/20 No Stop Date Active hydralazine 50 mg tablet RxNorm: 886289 Take 1 Tablet(s) Oral QID 05/05/20 21 022 Inactive venlafaxine ER 225 mg tablet,extended release 24 hr RxNorm: 232709 Take 1 Tablet(s) Oral QD 05/05/20 21 021 Inactive venlafaxine ER 225 mg tablet,extended release 24 hr RxNorm: 509265 Take 1 Tablet(s) Oral QD 05/05/20 022 Inactive hydralazine 50 mg tablet RxNorm: 930639 Take 1 Tablet(s) Oral QID 05/05/20 21 Inactive aspirin 81 mg tablet,delayed release RxNorm: 975921 Take 1 Tablet(s) Oral QD 03/31/20 022 Inactive Zetia 10 mg tablet RxNorm: 499446 Take 1 Tablet(s) Oral QD 03/31/20 Inactive Vitamin D2 1,250 mcg (50,000 unit) capsule RxNorm: 5278574 Take 1 Capsule(s) Oral QW once a week x 12 weeks 03/31/20 Inactive Vitamin D2 1,250 mcg (50,000 unit) capsule RxNorm: 6177579 Take 1 Capsule(s) Oral QW once a week 03/31/20 Inactive Zetia 10 mg tablet RxNorm: 943559 Take 1 Tablet(s) Oral QD 03/31/20 021 Inactive hydralazine 25 mg tablet RxNorm: 624143 Take 1 Tablet(s) Oral QID 03/31/20 21 021 Inactive hydralazine 25 mg tablet RxNorm: 597127 Take 1 Tablet(s) Oral QID 03/31/20 021 Inactive hydralazine 10 mg tablet RxNorm: 617204 Take 1 Tablet(s) Oral QID 03/03/20 021 Inactive cephalexin 500 mg tablet RxNorm: 645043 Take 1 Tablet(s) Oral QID 02/27/20 021 Inactive cephalexin 500 mg tablet RxNorm: 954202 Take 1 Tablet(s) Oral QID 02/27/20 021 Inactive lisinopril 40 mg tablet RxNorm: 203845 Take 1 Tablet(s) Oral QD 02/11/20 21 023 Inactive Eliquis 5 mg tablet RxNorm: 0690062 Take 1 Tablet(s) Oral BID 01/05/20 21 022 Inactive Eliquis 5 mg tablet RxNorm: 7276416 Take 2 Tablet(s) Oral QD 01/01/20 21 021 Inactive Lyrica 50 mg capsule RxNorm: 243015 Take 1 Capsule(s) Oral QAM every morning 12/24/19 21 021 Inactive Lyrica 100 mg capsule RxNorm: 831421 Take 1 Capsule(s) Oral QHS every night at bedtime 12/24/19 21 021 Inactive clotrimazole 1 % topical cream RxNorm: 628728 Apply to right foot and toes Topical BID 12/04/19 21 023 Inactive metoprolol succinate ER 200 mg tablet,extended release 24 hr RxNorm: 834303 Take 1 Tablet(s) Oral QD 12/04/19 21 023 Inactive ciprofloxacin 500 mg tablet RxNorm: 721282 Take 1 Tablet(s) Oral QD 11/30/19 21 021 Inactive DX ofloxacin otic drops Accu-Chek Guide test strips RxNorm: USE 1 TO CHECK GLUCOSE 4 TIMES DAILY AND NEEDED 11/15/19 21 023 Inactive Blood Glucose Test strips RxNorm: Use 1 Test Strip QID at PRN 11/05/19 21 023 Inactive E11.42 lisinopril 30 mg tablet RxNorm: 366779 Take 1 Tablet(s) Oral QD 10/30/19 021 Inactive lisinopril 20 mg tablet RxNorm: 053057 Take 1 Tablet(s) Oral QD 10/23/19 21 021 Inactive lisinopril 20 mg tablet RxNorm: 060405 Take 1 Tablet(s) Oral QD 10/23/19 21 021 Inactive lisinopril 10 mg tablet RxNorm: 130442 Take 1 Tablet(s) Oral QD 10/02/19 21 021 Inactive icosapent ethyl 1 gram capsule RxNorm: 5746909 Take 2 Capsule(s) (2 gm) Oral BID with meals 09/12/19 21 022 Inactive Okay to dispense one 2gm tab if you have that available. icosapent ethyl 1 gram capsule RxNorm: 4998833 Take 2 Capsule(s) Oral BID 09/12/19 021 Inactive Okay to dispense one 2gm tab if you have that available. amlodipine 10 mg tablet RxNorm: 575473 Take 1 Tablet(s) Oral QD 09/04/19 Inactive aspirin 81 mg tablet,delayed release RxNorm: 546744 Take 1 Tablet(s) Oral QD 09/04/19 Inactive Levemir FlexTouch U-100 Insulin 100 unit/mL (3 mL) subcutaneous pen RxNorm: 636010 Inject 150 Unit(s) Subcutaneous BID 09/04/19 022 Inactive venlafaxine ER 150 mg tablet,extended release 24 hr RxNorm: 570856 Take 1 Tablet(s) Oral QD 09/04/19 Inactive clotrimazole-betame thasone 1 %-0.05 % topical cream RxNorm: 183470 Apply to rash on red area on left abdomen/chest Topical BID 08/10/19 Inactive amlodipine 5 mg tablet RxNorm: 304647 Take 1 Tablet(s) Oral QD 07/31/19 Inactive cephalexin 500 mg tablet RxNorm: 284326 Take 1 Tablet(s) Oral BID BID - Twice Daily 07/31/19 021 Inactive Start 08/01/20 pantoprazole 40 mg tablet,delayed release RxNorm: 308839 Take 1 Tablet(s) Oral QAM every morning 07/08/19 022 Inactive senna 8.6 mg tablet RxNorm: 658199 Take 1 Tablet(s) Oral QD 07/08/19 022 Inactive pravastatin 80 mg tablet RxNorm: 669081 Take 1 Tablet(s) Oral QHS every night at bedtime 07/08/19 022 Inactive carbamazepine 200 mg tablet RxNorm: 876115 Take 1 Tablet(s) Oral BID 07/08/19 022 Inactive clopidogrel 75 mg tablet RxNorm: 258958 Take 1 Tablet(s) Oral QD 07/08/19 021 Inactive Blood Glucose Test strips RxNorm: Use 1 Test Strip QID at PRN 07/08/19 21 021 Inactive E11.42 Novolog Flexpen U-100 Insulin aspart 100 unit/mL (3 mL) subcutaneous RxNorm: 5303035 Administer per sliding scale Milliliter(s) Subcutaneous TID 151-200: 10 u; 201-250: 20 u; 251-300: 30 u; 301-350: 40 u; 351-400: 50 u. 07/08/19 022 Inactive lisinopril 5 mg tablet RxNorm: 645153 Take 1 Tablet(s) Oral QD 07/08/19 21 021 Inactive Novolog Flexpen U-100 Insulin aspart 100 unit/mL (3 mL) subcutaneous RxNorm: 5510638 Inject 85 Unit(s) Subcutaneous TID 07/08/19 022 Inactive clotrimazole 1 % topical cream RxNorm: 221963 Apply to bilateral groin areas Topical BID 07/08/19 022 Inactive metoprolol succinate ER 200 mg tablet,extended release 24 hr RxNorm: 945186 Take 1 Tablet(s) Oral QD 07/08/19 021 Inactive Vitamin D3 25 mcg (1,000 unit) tablet RxNorm: 341285 Take 1 Tablet(s) Oral QD 07/08/19 021 Inactive isosorbide dinitrate 30 mg tablet RxNorm: 081566 Take 1 Tablet(s) Oral QD 07/08/19 021 Inactive Levemir FlexTouch U-100 Insulin 100 unit/mL (3 mL) subcutaneous pen RxNorm: 265028 Inject 140 Unit(s) Subcutaneous BID 07/08/19 21 021 Inactive torsemide 20 mg tablet RxNorm: 864475 Take 1 Tablet(s) Oral QD 07/08/19 023 Inactive venlafaxine 75 mg tablet RxNorm: 013551 Take 1 Tablet(s) Oral QD 07/08/19 21 021 Inactive acetaminophen 500 mg tablet RxNorm: 438270 Take 1 Tablet(s) Oral TID as needed for headache 06/18/19 21 021 Inactive acetaminophen 500 mg tablet RxNorm: 735686 Take 1 Tablet(s) Oral TID as needed for headache 06/18/19 21 021 Inactive Lyrica 100 mg capsule RxNorm: 179177 Take 1 Capsule(s) Oral QHS every night at bedtime 06/11/19 21 021 Inactive Lyrica 50 mg capsule RxNorm: 394261 Take 1 Capsule(s) Oral QAM every morning 06/10/19 21 021 Inactive hydrocortisone 2.5 % topical cream RxNorm: 807835 Apply to bilateral groin creases Topical BID 05/15/20 20 021 Inactive clotrimazole 1 % topical cream RxNorm: 733652 Apply to bilateral groin areas Topical BID 05/15/20 20 021 Inactive Lyrica 50 mg capsule RxNorm: 840628 Take 1 Capsule(s) Oral QAM every morning 05/14/20 20 020 Inactive Lyrica 100 mg capsule RxNorm: 527078 Take 1 Capsule(s) Oral QHS every night [...] Inactive Nystop 100,000 unit/gram topical powder RxNorm: 415601 Apply to abd folds, under breasts and L side of groin Topical BID x 14 days, then BID PRN 04/08/20 20 021 Inactive dx: yeast dermatitis Lyrica 100 mg capsule RxNorm: 837549 Take 1 Capsule(s) Oral QHS every night at bedtime 03/13/20 20 Inactive Lyrica 50 mg capsule RxNorm: 888729 Take 1 Capsule(s) Oral QAM every morning 03/13/20 20 Inactive ketoconazole 2 % shampoo RxNorm: 313501 Apply Topical two times a week with showers 03/11/20 Inactive cholecalciferol (vitamin D3) 50 mcg (2,000 unit) tablet RxNorm: 278052 Take 1 Tablet(s) Oral QD 03/11/20 20 Inactive Zetia 10 mg tablet RxNorm: 219816 Take 1 Tablet(s) Oral QD 03/07/20 20 Inactive Zetia 10 mg tablet RxNorm: 510651 Take 1 Tablet(s) Oral QD 03/07/20 20 Inactive Lyrica 50 mg capsule RxNorm: 186432 Take 1 Capsule(s) Oral QAM every morning 02/15/20 20 Inactive Lyrica 100 mg capsule RxNorm: 959996 Take 1 Capsule(s) Oral QHS every night at bedtime 02/15/20 Inactive Lyrica 100 mg capsule RxNorm: 213671 Take 1 Capsule(s) Oral QHS every night at bedtime 02/15/20 20 Inactive Lyrica 50 mg capsule RxNorm: 827738 Take 1 Capsule(s) Oral QAM every morning 02/15/20 20 Inactive venlafaxine ER 75 mg capsule,extended release 24 hr RxNorm: 064255 Take 3 Capsule(s) Oral QD 06/12/19 Active polyethylene glycol 3350 17 gram/dose oral powder RxNorm: 894495 Take 17=1 capful Gram(s) Oral BID as needed mix with 4-8oz of liquid 06/12/19 Active metoprolol succinate ER 200 mg tablet,extended release 24 hr RxNorm: 801173 Take 1 Tablet(s) Oral QD 08/12/19 23 Active loperamide 2 mg capsule RxNorm: 284925 Take 1 Capsule(s) Oral QID as needed 06/12/19 Active hydralazine 50 mg tablet RxNorm: 398392 Take 1 Tablet(s) Oral QID 08/12/19 Active icosapent ethyl 1 gram capsule RxNorm: 2626635 Take 2 Capsule(s) (2 gm) Oral BID with meals 10/07/19 23 023 Inactive Okay to dispense one 2gm tab if you have that available. Levemir FlexTouch U-100 Insulin 100 unit/mL (3 mL) subcutaneous pen RxNorm: 626784 Inject 80 Unit(s) Subcutaneous BID 07/14/19 23 023 Inactive Novolog Flexpen U-100 Insulin aspart 100 unit/mL (3 mL) subcutaneous RxNorm: 6673899 Insert 30 Unit(s) Subcutaneous TID with meals [...] Status Date Referral: [facility] [place] WPtel: [address], [address] [id number] [place] Referral Records Received 09/21/2022 Referral: [facility] WPtel: [address] [id number] [place] Referral Completed 05/28/2021 Referral: General Cardiology [...] Sister Jyotsna involved in his care cell# [phone] Guardian: Don (tapan met in person 09/01/21), now has Lexii (same group as don)Lab Schedule: * 10/06/2022
--- OUTSIDE RECORDS SUMMARY | 2022-12-08 01:59 | XMS_ITS | CCD ---
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 Marketing Intelligence Manager Name Role Phone Tapan Shirley PA-C Primary Care Provider Unavailabl e Tapan Shirley PA-C Chronic Care Management Unavaila ble Summary Purpose DataExchange Insurance Providers Payer name Policy type / Coverage type Covered republican ID Effective Begin Date Effective End Date Medicare [place] Medicare Part B [id number] Unknown Unknown Medicaid [place] Medicare Part B [id number] Unknown Unknown Family history Sister Brittany Suggs [...] Retirement 09/03/[address]: 2270366 Non-Smoker / No History of Smoking 09/02/[address]: 784705894 No Alcohol Consum ption 09/02/2020 Allergies, Adverse Reactions, Alerts Substance Reaction Codes Entered Date Inactivated Date Status LISINOPRIL RxNorm: 76050 02/12/2020 No Inactive Da te Active Metformin [...] 08/11/2022 Active Coronary artery disease invo lving [place] coronary artery of [place] heart, angina presence unspecified ICD-10: I25.10 [...] Z23 ICD-9: V03.89 02/10/2022 Resolved long term (current) use of insulin ICD-10: Z79.4 02/10 [...] Instructions nystatin 100,000 unit/gram topical powder RxNorm: 553367 APPLY TO AFFECTED AREAS TOPICALLY 2 TIMES DAILY 11/21/19 23 024 Active Nystop 100,000 unit/gram topical powder RxNorm: 953583 Apply to abd folds, under breasts and L side of groin Topical BID x 14 days, then BID PRN 11/20/19 23 023 Inactive dx: yeast dermatitis [place] Ultra Strength 4 %-30 %-10 % topical cream RxNorm: 160468 Apply 1 Gram(s) Topical QID PRN to feet and legs for neuropathic pain 11/11/19 23 024 Active hydrocortisone 2.5 % topical cream RxNorm: 680224 Apply 1/2 Gram(s) Topical BID as needed 11/10/19 No Stop Date Active clotrimazole 1 % topical cream RxNorm: 814996 Apply 1/2 Gram(s) Topical BID Apply to affected areas of groin, periarea, and abdominal topically 2 times daily 11/10/19 023 Inactive Levemir FlexPen 100 unit/mL (3 mL) solution subcutaneous insulin pen RxNorm: 358639 Inject 30 Unit(s) Subcutaneous BID 10/07/19 024 Active Humulin R U-500 (Concentrated) Insulin 500 unit/mL subcutaneous soln RxNorm: 559803 Inject 100 Unit(s) Subcutaneous TID 10/07/19 024 Active Ozempic 0.25 mg or 0.5 mg (2 mg/3 mL) subcutaneous pen injector RxNorm: 8859702 Inject 1/2 Milligram(s) Subcutaneous QW once a week 10/07/19 024 Active aripiprazole 15 mg tablet RxNorm: 233929 1/2 TAB (7.5MG) ORALLY DAILY (DX:MAJOR DEPRESSIVE DISORDER) 09/23/19 023 Active Accu-Chek Guide test strips RxNorm: Use 1 Test Strip QID 09/15/19 23 024 Active ok to substitute with any covered alternative test strip Lancets,Thin 28 gauge RxNorm: Use 1 as directed QID 09/15/19 23 024 Active torsemide 20 mg tablet RxNorm: 132723 Take 1 Tablet(s) Oral BID 09/09/19 024 Active d/c once daily dosing carvedilol 25 mg tablet RxNorm: 547054 Take 1 Tablet(s) Oral QD 08/25/19 024 Active pregabalin 150 mg capsule RxNorm: 113794 1 Capsule(s) Oral HS at bed time 08/18/19 023 Active pregabalin 100 mg capsule RxNorm: 478995 1 Capsule(s) Oral QAM every morning 08/18/19 023 Active carvedilol 25 mg tablet RxNorm: 435225 1 Tablet(s) Oral QD 07/28/19 023 Inactive lisinopril 20 mg tablet RxNorm: 066494 Give 1 Tablet(s) Oral QD 07/28/19 23 023 Inactive Lyrica 150 mg capsule RxNorm: 249460 Take 1 Capsule(s) Oral QHS every night at bedtime 07/19/19 23 023 Inactive d/c 100mg dose Diflucan 150 mg tablet RxNorm: 012392 Take 1 Tablet(s) Oral QD repeat on day 3 and 6 07/19/19 23 023 Inactive pregabalin 100 mg capsule RxNorm: 500212 Take 1 Capsule(s) Oral QAM every morning 07/19/19 23 023 Inactive gatifloxacin 0.5 % eye drops RxNorm: 444570 Instill 1 Drop(s) as directed TID Instill 1 drop in to affected eye(s) starting 1 day prior to surgery and continue until gone (do not exceed 4 weeks). 07/13/19 23 023 Inactive carvedilol 25 mg tablet RxNorm: 156436 2 Tablet(s) Oral BID 07/13/19 23 023 Inactive Humulin R Regular U-100 Insulin 100 unit/mL injection solution RxNorm: 420304 85 Unit(s) Injection TID 07/13/19 23 023 Inactive ketorolac 0.5 % eye drops RxNorm: 905073 Instill 1 Drop(s) as directed QID Instill 1 drop into affected eye(s) 4 times daily starting 1 day prior to surgery and continue until gone (do not exceed 4 weeks). 07/13/19 23 023 Inactive Diflucan 150 mg tablet RxNorm: 674341 Take 1 Tablet(s) Oral QD repeat on day 3 and 6 06/30/19 23 023 Inactive Accu-Chek Guide test strips RxNorm: Use 1 Test Strip QID Use 1 test strip to monitor blood glucose 4 times daily and as needed. Dx:E11.42. 06/23/19 23 023 Inactive ok to substitute with any covered alternative test strip dextromethorphan-gu aifenesin 10 mg-100 mg/5 mL oral liquid RxNorm: 232065 Take 10 Milliliter(s) Oral every 4 hours as needed for cough 06/19/19 23 023 Inactive dextromethorphan-gu aifenesin 10 mg-100 mg/5 mL oral liquid RxNorm: 222383 Take 10 Milliliter(s) Oral every 4 hours as needed for cough 06/19/19 023 Inactive Lyrica 150 mg capsule RxNorm: 211270 Take 1 Capsule(s) Oral QHS every night at bedtime 06/18/19 023 Inactive d/c 100mg dose aripiprazole 15 mg tablet RxNorm: 467500 1/2 TAB (7.5MG) ORALLY DAILY (DX:MAJOR DEPRESSIVE DISORDER) 06/05/19 023 Inactive pregabalin 100 mg capsule RxNorm: 415715 1 Capsule(s) Oral QAM every morning 06/02/19 023 Inactive Banophen 50 mg capsule RxNorm: 8060023 Take 1 Capsule(s) Oral Q6H every 6 hours as needed 05/19/19 23 No Stop Date Active Novolog Flexpen U-100 Insulin aspart 100 unit/mL (3 mL) subcutaneous RxNorm: 1540093 Inject 10 Unit(s) Subcutaneous QHS every night at bedtime with nighttime snack 04/08/20 022 Inactive Novolog Flexpen U-100 Insulin aspart 100 unit/mL (3 mL) subcutaneous RxNorm: 4518023 Inject 42 Unit(s) Subcutaneous TID in addition to sliding scale 04/08/20 022 Inactive d/c 36u albuterol sulfate HFA 90 mcg/actuation aerosol inhaler RxNorm: 3067452 Take 2 Puff(s) Inhalation Q4H every four hours as needed as needed for SOB, cough, or wheezing 04/07/20 030 Active Banophen 50 mg capsule RxNorm: 6257706 Take 1 Capsule(s) Oral Q6H every 6 hours as needed 04/06/20 023 Inactive diphenhydramine 50 mg tablet RxNorm: 8427102 Take 1 Tablet(s) Oral Q6H every 6 hours as needed 04/06/20 22 022 Inactive diphenhydramine 50 mg tablet RxNorm: 7553857 1 Tablet(s) Oral Q6H every 6 hours as needed 04/06/20 22 022 Inactive Abilify 15 mg tablet RxNorm: 469767 1/2 Tablet(s) Oral QD 03/10/20 023 Inactive Shingrix (PF) 50 mcg/0.5 mL intramuscular suspension, kit RxNorm: 4942102 Administer 1/2 Milliliter(s) Intramuscular QD one time shingrix step 2 ( step 1 given 11/04/21) WITH needle - Nursing please administer upon arrival and once administered post a bridge message with date of administration, finance administrator, expiration date, and lot# so we can update [facility] 02/18/20 22 022 Inactive dispense with needle Shingrix (PF) 50 mcg/0.5 mL intramuscular suspension, kit RxNorm: 2492008 Administer 1/2 Milliliter(s) Intramuscular QD one time shingrix step 2 ( step 1 given 11/04/21) WITH needle - Nursing please administer upon arrival and once administered post a bridge message with date of administration, finance administrator, expiration date, and lot# so we can update [facility] 02/18/20 22 022 Inactive dispense with needle acetaminophen 500 mg tablet RxNorm: 880590 Take 1 Tablet(s) Oral TID 01/08/20 22 023 Active d/c PRN order polyethylene glycol 3350 17 gram/dose oral powder RxNorm: 744615 Take 17=1 capful Gram(s) Oral QD mix with 4-8oz of liquid 01/08/20 22 023 Active take this in addition to BID prn order Lyrica 100 mg capsule RxNorm: 954055 Take 1 Capsule(s) Oral QAM every morning 01/08/20 22 022 Inactive d/c 50mg dose Lyrica 150 mg capsule RxNorm: 555845 Take 1 Capsule(s) Oral QHS every night at bedtime 01/08/20 22 023 Inactive d/c 100mg dose Abilify 5 mg tablet RxNorm: 869262 Take 1 Tablet(s) Oral QD take 1 tab po QD #30 refill 5 dx: MDD 12/12/19 22 022 Inactive Abilify 5 mg tablet RxNorm: 005992 Take 1 Tablet(s) Oral QD take 1 tab po QD #30 refill 5 dx: MDD 12/12/19 22 022 Inactive chlorthalidone 25 mg tablet RxNorm: 075206 Take 1 Tablet(s) Oral QAM every morning 12/10/19 22 023 Inactive Novolog Flexpen U-100 Insulin aspart 100 unit/mL (3 mL) subcutaneous RxNorm: 1835052 Inject 42 Unit(s) Subcutaneous TID in addition to sliding scale 12/10/19 22 022 Inactive d/c 36u pregabalin 50 mg capsule RxNorm: 823678 Take 1 Capsule(s) Oral QAM every morning 11/12/19 22 022 Inactive tetanus-diphtheria toxoids-Td 2 Lf unit-2 Lf unit/0.5 mL IM suspension RxNorm: 139 Take 0.5 Miscellaneous Intramuscular 11/12/19 22 022 Inactive need tdap - nursing to administer upon arrival pregabalin 50 mg capsule RxNorm: 077169 Take 1 Capsule(s) Oral QAM every morning 10/16/19 22 022 Inactive pregabalin 50 mg capsule RxNorm: 524169 Take 1 Capsule(s) Oral QAM every morning 10/16/19 22 022 Inactive pregabalin 50 mg capsule RxNorm: 579187 1 Capsule(s) Oral QAM every morning 10/15/19 22 022 Inactive Shingrix (PF) 50 mcg/0.5 mL intramuscular suspension, kit RxNorm: 6355478 Administer 1/2 Milliliter(s) Intramuscular one time Nursing please administer upon arrival and once administered post a bridge message with date of administration, finance administrator, expiration date, and lot# so we can update [facility]. 10/09/19 22 022 Inactive shingrix step 1 Shingrix (PF) 50 mcg/0.5 mL intramuscular suspension, kit RxNorm: 5159705 Administer 1/2 Milliliter(s) Intramuscular one time Nursing please administer upon arrival and once administered post a bridge message with date of administration, finance administrator, expiration date, and lot# so we can update [facility]. 10/09/19 22 Inactive shingrix step 1 cholecalciferol (vitamin D3) 1,250 mcg (50,000 unit) capsule RxNorm: 387063 Take 1 Capsule(s) Oral QW once a [...] aspart 100 unit/mL (3 mL) subcutaneous RxNorm: 8312423 Inject 10 Unit(s) Subcutaneous QHS every night at bedtime with nighttime snack 10/08/19 22 Inactive Shingrix (PF) 50 mcg/0.5 mL intramuscular suspension, kit RxNorm: 7310941 ADMINISTER 2-DOSE SERIES PER CDC GUIDELINES 10/08/19 22 022 Active Shingrix (PF) 50 mcg/0.5 mL intramuscular suspension, kit RxNorm: 5677357 ADMINISTER 2-DOSE SERIES PER CDC GUIDELINES 10/08/19 22 022 Inactive Novolog Flexpen U-100 Insulin aspart 100 unit/mL (3 mL) subcutaneous RxNorm: 7543982 Inject 36 Unit(s) Subcutaneous TID in addition to sliding scale 10/08/19 22 Inactive Novofine Autocover 30 gauge x 1/3 needle RxNorm: Use 1 Miscellaneous UD as directed Use 1 needle as directed to administer insulin 5 times a day Dx:E11.42. 10/03/19 22 Inactive ok to substitute with any covered alternative pen needle benzoyl peroxide 10 % topical cleanser RxNorm: 171391 Apply 1 Application Topical QD apply to face, wash rinse and dry once daily (may change to QOD if drying) 08/19/19 22 022 Inactive (%covered by insurance) #60ml refill 11 dx: acne benzoyl peroxide 10 % topical cleanser RxNorm: 143560 Apply 1 Application Topical QD apply to face, wash rinse and dry once daily (may change to QOD if drying) 08/19/19 22 022 Inactive (%covered by insurance) #60ml refill 11 dx: acne benzoyl peroxide 10 % topical cleanser RxNorm: 496367 Apply 1 Application Topical QD apply to face, wash rinse and dry once daily (may change to QOD if drying) 08/19/19 22 022 Inactive (%covered by insurance) #60ml refill 11 dx: acne Lyrica 50 mg capsule RxNorm: 190980 Take 1 Capsule(s) Oral QAM every morning Take 1 capsule by mouth once daily 08/19/19 022 Inactive benzoyl peroxide 10 % topical cleanser RxNorm: 132568 Apply 1 Application Topical QD apply to face, wash rinse and dry once daily (may change to QOD if drying) 08/19/19 22 022 Inactive (%covered by insurance) #60ml refill 11 dx: acne Lyrica 100 mg capsule RxNorm: 218123 Take 1 Capsule(s) Oral QHS every night at bedtime Take 1 capsule by mouth once daily at bedtime 08/19/19 22 022 Inactive Lyrica 100 mg capsule RxNorm: 715356 Take 1 Capsule(s) Oral QHS every night at bedtime Take 1 capsule by mouth once daily at bedtime 08/16/19 022 Inactive Lyrica 50 mg capsule RxNorm: 604053 Take 1 Capsule(s) Oral QAM every morning Take 1 capsule by mouth once daily 08/16/19 Inactive Levemir FlexTouch U-100 Insulin 100 unit/mL (3 mL) subcutaneous pen RxNorm: 905930 Inject 86 Unit(s) Subcutaneous BID 08/05/19 22 022 Inactive d/c 83units BID Lyrica 100 mg capsule RxNorm: 627480 Take 1 Capsule(s) Oral QHS every night at bedtime Take 1 capsule by mouth once daily at bedtime 07/14/19 22 Inactive Lyrica 50 mg capsule RxNorm: 722730 Take 1 Capsule(s) Oral QAM every morning Take 1 capsule by mouth once daily 07/14/19 22 Inactive Levemir FlexTouch U-100 Insulin 100 unit/mL (3 mL) subcutaneous pen RxNorm: 675992 Inject 83 Unit(s) Subcutaneous BID 07/08/19 22 [...] administer insulin 5 times a day Dx:06/05/19 Inactive ok to substitute with any [...] 30 mg tablet,extended release 24 hr RxNorm: 103411 Take 1 Tablet(s) Oral QD 05/05/20 No Stop Date Active hydralazine 50 mg tablet RxNorm: 338865 Take 1 Tablet(s) Oral QID 05/05/20 022 Inactive venlafaxine ER 225 mg tablet,extended release 24 hr RxNorm: 203349 Take 1 Tablet(s) Oral QD 05/05/20 Inactive venlafaxine ER 225 mg tablet,extended release 24 hr RxNorm: 123152 Take 1 Tablet(s) Oral QD 05/05/20 022 Inactive hydralazine 50 mg tablet RxNorm: 341542 Take 1 Tablet(s) Oral QID 05/05/20 Inactive aspirin 81 mg tablet,delayed release RxNorm: 779380 Take 1 Tablet(s) Oral QD 03/31/20 Inactive Zetia 10 mg tablet RxNorm: 692728 Take 1 Tablet(s) Oral QD 03/31/20 Inactive Vitamin D2 1,250 mcg (50,000 unit) capsule RxNorm: 8017474 Take 1 Capsule(s) Oral QW once a week x 12 weeks 03/31/20 022 Inactive Vitamin D2 1,250 mcg (50,000 unit) capsule RxNorm: 0399852 Take 1 Capsule(s) Oral QW once a week 03/31/20 Inactive Zetia 10 mg tablet RxNorm: 633189 Take 1 Tablet(s) Oral QD 03/31/20 Inactive hydralazine 25 mg tablet RxNorm: 129924 Take 1 Tablet(s) Oral QID 03/31/20 Inactive hydralazine 25 mg tablet RxNorm: 774968 Take 1 Tablet(s) Oral QID 03/31/20 021 Inactive hydralazine 10 mg tablet RxNorm: 485328 Take 1 Tablet(s) Oral QID 10/18/20 21 11/14/2 021 Inactive cephalexin 500 mg tablet RxNorm: 032713 Take 1 Tablet(s) Oral QID 02/27/20 21 021 Inactive cephalexin 500 mg tablet RxNorm: 885095 Take 1 Tablet(s) Oral QID 02/27/20 021 Inactive lisinopril 40 mg tablet RxNorm: 386480 Take 1 Tablet(s) Oral QD 02/11/20 023 Inactive Eliquis 5 mg tablet RxNorm: 2110651 Take 1 Tablet(s) Oral BID 01/05/20 21 022 Inactive Eliquis 5 mg tablet RxNorm: 2968629 Take 2 Tablet(s) Oral QD 01/01/20 21 021 Inactive Lyrica 50 mg capsule RxNorm: 123449 Take 1 Capsule(s) Oral QAM every morning 12/24/19 021 Inactive Lyrica 100 mg capsule RxNorm: 943057 Take 1 Capsule(s) Oral QHS every night at bedtime 12/24/19 021 Inactive clotrimazole 1 % topical cream RxNorm: 171197 Apply to right foot and toes Topical BID 12/04/19 21 023 Inactive metoprolol succinate ER 200 mg tablet,extended release 24 hr RxNorm: 703171 Take 1 Tablet(s) Oral QD 12/04/19 023 Inactive ciprofloxacin 500 mg tablet RxNorm: 516009 Take 1 Tablet(s) Oral QD 11/30/19 021 Inactive DX ofloxacin otic drops Accu-Chek Guide test strips RxNorm: USE 1 TO CHECK GLUCOSE 4 TIMES DAILY AND NEEDED 11/15/19 21 023 Inactive Blood Glucose Test strips RxNorm: Use 1 Test Strip QID at PRN 11/05/19 21 023 Inactive E11.42 lisinopril 30 mg tablet RxNorm: 109951 Take 1 Tablet(s) Oral QD 10/30/19 21 021 Inactive lisinopril 20 mg tablet RxNorm: 171617 Take 1 Tablet(s) Oral QD 10/23/19 21 021 Inactive lisinopril 20 mg tablet RxNorm: 933799 Take 1 Tablet(s) Oral QD 10/23/19 21 021 Inactive lisinopril 10 mg tablet RxNorm: 757293 Take 1 Tablet(s) Oral QD 10/02/19 21 021 Inactive icosapent ethyl 1 gram capsule RxNorm: 9402624 Take 2 Capsule(s) (2 gm) Oral BID with meals 09/12/19 022 Inactive Okay to dispense one 2gm tab if you have that available. icosapent ethyl 1 gram capsule RxNorm: 1609570 Take 2 Capsule(s) Oral BID 09/12/19 021 Inactive Okay to dispense one 2gm tab if you have that available. amlodipine 10 mg tablet RxNorm: 458440 Take 1 Tablet(s) Oral QD 09/04/19 022 Inactive aspirin 81 mg tablet,delayed release RxNorm: 308809 Take 1 Tablet(s) Oral QD 09/04/19 021 Inactive Levemir FlexTouch U-100 Insulin 100 unit/mL (3 mL) subcutaneous pen RxNorm: 756391 Inject 150 Unit(s) Subcutaneous BID 09/04/19 022 Inactive venlafaxine ER 150 mg tablet,extended release 24 hr RxNorm: 367902 Take 1 Tablet(s) Oral QD 09/04/19 021 Inactive clotrimazole-betame thasone 1 %-0.05 % topical cream RxNorm: 483052 Apply to rash on red area on left abdomen/chest Topical BID 08/10/19 21 021 Inactive amlodipine 5 mg tablet RxNorm: 511683 Take 1 Tablet(s) Oral QD 07/31/19 21 021 Inactive cephalexin 500 mg tablet RxNorm: 320354 Take 1 Tablet(s) Oral BID BID - Twice Daily 07/31/19 21 021 Inactive Start 08/01/20 pantoprazole 40 mg tablet,delayed release RxNorm: 129792 Take 1 Tablet(s) Oral QAM every morning 07/08/19 21 022 Inactive senna 8.6 mg tablet RxNorm: 177684 Take 1 Tablet(s) Oral QD 07/08/19 21 Inactive pravastatin 80 mg tablet RxNorm: 219794 Take 1 Tablet(s) Oral QHS every night at bedtime 07/08/19 21 Inactive carbamazepine 200 mg tablet RxNorm: 841355 Take 1 Tablet(s) Oral BID 07/08/19 21 Inactive clopidogrel 75 mg tablet RxNorm: 224799 Take 1 Tablet(s) Oral QD 07/08/19 21 Inactive Blood Glucose Test strips RxNorm: Use 1 Test Strip QID at PRN 07/08/19 21 Inactive E11.42 Novolog Flexpen U-100 Insulin aspart 100 unit/mL (3 mL) subcutaneous RxNorm: 0998371 Administer per sliding scale Milliliter(s) Subcutaneous TID 151-200: 10 u; 201-250: 20 u; 251-300: 30 u; 301-350: 40 u; 351-400: 50 u. 07/08/19 21 022 Inactive lisinopril 5 mg tablet RxNorm: 269845 Take 1 Tablet(s) Oral QD 07/08/19 Inactive Novolog Flexpen U-100 Insulin aspart 100 unit/mL (3 mL) subcutaneous RxNorm: 3715096 Inject 85 Unit(s) Subcutaneous TID 07/08/19 21 Inactive clotrimazole 1 % topical cream RxNorm: 178146 Apply to bilateral groin areas Topical BID 07/08/19 21 Inactive metoprolol succinate ER 200 mg tablet,extended release 24 hr RxNorm: 617292 Take 1 Tablet(s) Oral QD 07/08/19 21 Inactive Vitamin D3 25 mcg (1,000 unit) tablet RxNorm: 609450 Take 1 Tablet(s) Oral QD 07/08/19 21 Inactive isosorbide dinitrate 30 mg tablet RxNorm: 151921 Take 1 Tablet(s) Oral QD 07/08/19 21 Inactive Levemir FlexTouch U-100 Insulin 100 unit/mL (3 mL) subcutaneous pen RxNorm: 979309 Inject 140 Unit(s) Subcutaneous BID 07/08/19 21 021 Inactive torsemide 20 mg tablet RxNorm: 742983 Take 1 Tablet(s) Oral QD 07/08/19 21 023 Inactive venlafaxine 75 mg tablet RxNorm: 337822 Take 1 Tablet(s) Oral QD 07/08/19 21 021 Inactive acetaminophen 500 mg tablet RxNorm: 293883 Take 1 Tablet(s) Oral TID as needed for headache 06/18/19 21 021 Inactive acetaminophen 500 mg tablet RxNorm: 705653 Take 1 Tablet(s) Oral TID as needed for headache 06/18/19 21 021 Inactive Lyrica 100 mg capsule RxNorm: 680187 Take 1 Capsule(s) Oral QHS every night at bedtime 06/11/19 21 021 Inactive Lyrica 50 mg capsule RxNorm: 555791 Take 1 Capsule(s) Oral QAM every morning 06/10/19 21 021 Inactive hydrocortisone 2.5 % topical cream RxNorm: 058586 Apply to bilateral groin creases Topical BID 05/15/20 20 021 Inactive clotrimazole 1 % topical cream RxNorm: 094496 Apply to bilateral groin areas Topical BID 05/15/20 20 021 Inactive Lyrica 50 mg capsule RxNorm: 819885 Take 1 Capsule(s) Oral QAM every morning 05/14/20 20 020 Inactive Lyrica 100 mg capsule RxNorm: 287301 Take 1 Capsule(s) Oral QHS every night [...] Inactive Nystop 100,000 unit/gram topical powder RxNorm: 026050 Apply to abd folds, under breasts and L side of groin Topical BID x 14 days, then BID PRN 04/08/20 20 Inactive dx: yeast dermatitis Lyrica 100 mg capsule RxNorm: 698539 Take 1 Capsule(s) Oral QHS every night at bedtime 03/13/20 Inactive Lyrica 50 mg capsule RxNorm: 172170 Take 1 Capsule(s) Oral QAM every morning 03/13/20 20 Inactive ketoconazole 2 % shampoo RxNorm: 284632 Apply Topical two times a week with showers 03/11/20 20 Inactive cholecalciferol (vitamin D3) 50 mcg (2,000 unit) tablet RxNorm: 017018 Take 1 Tablet(s) Oral QD 03/11/20 20 Inactive Zetia 10 mg tablet RxNorm: 778759 Take 1 Tablet(s) Oral QD 03/07/20 20 021 Inactive Zetia 10 mg tablet RxNorm: 642429 Take 1 Tablet(s) Oral QD 03/07/20 20 Inactive Lyrica 50 mg capsule RxNorm: 146501 Take 1 Capsule(s) Oral QAM every morning 02/15/20 20 Inactive Lyrica 100 mg capsule RxNorm: 973707 Take 1 Capsule(s) Oral QHS every night at bedtime 02/15/20 20 Inactive Lyrica 100 mg capsule RxNorm: 162721 Take 1 Capsule(s) Oral QHS every night at bedtime 02/15/20 20 Inactive Lyrica 50 mg capsule RxNorm: 448430 Take 1 Capsule(s) Oral QAM every morning 02/15/20 20 020 Inactive venlafaxine ER 75 mg capsule,extended release 24 hr RxNorm: 282486 Take 3 Capsule(s) Oral QD 06/12/19 Active polyethylene glycol 3350 17 gram/dose oral powder RxNorm: 310422 Take 17=1 capful Gram(s) Oral BID as needed mix with 4-8oz of liquid 06/12/19 Active metoprolol succinate ER 200 mg tablet,extended release 24 hr RxNorm: 909842 Take 1 Tablet(s) Oral QD 08/12/19 23 Active loperamide 2 mg capsule RxNorm: 699851 Take 1 Capsule(s) Oral QID as needed 06/12/19 Active hydralazine 50 mg tablet RxNorm: 777666 Take 1 Tablet(s) Oral QID 08/12/19 23 Active icosapent ethyl 1 gram capsule RxNorm: 6462550 Take 2 Capsule(s) (2 gm) Oral BID with meals 10/07/19 23 023 Inactive Okay to dispense one 2gm tab if you have that available. Levemir FlexTouch U-100 Insulin 100 unit/mL (3 mL) subcutaneous pen RxNorm: 648647 Inject 80 Unit(s) Subcutaneous BID 07/14/19 23 023 Inactive Novolog Flexpen U-100 Insulin aspart 100 unit/mL (3 mL) subcutaneous RxNorm: 9428806 Insert 30 Unit(s) Subcutaneous TID with meals [...] [facility]: [phone], [address] [id number] [place] Referral Records Received 09/21/2022 Referral: [facility]: [address] [id number] [place] Referral Completed 05/28/2021 Referral: General Cardiology [...] Sister Jyotsna involved in his care cell# [phone] Guardian: Don (tapan met in person 09/01/21), now has Lexii (same group as don)Lab Schedule: * 10/06/2022
--- OUTSIDE RECORDS SUMMARY | 2022-12-08 01:59 | XMS_ITS | CCD ---
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 Occupational Therapy Assistant Name Role Phone Tapan Shirley PA-C Primary Care Provider Unavailabl e Tapan Shirley PA-C Chronic Care Management Unavaila ble Summary Purpose DataExchange Insurance Providers Payer name Policy type / Coverage type Covered libertarian ID Effective Begin Date Effective End Date [place] [id number] Unknown Unknown [place] [id number] Unknown Unknown Family history Sister Brittany Suggs [...] Snf 09/03/[address]: 9941019 Non-Smoker / No History of Smoking 09/02/[address]: 183999237 No Alcohol Consum ption 09/02/2020 Allergies, Adverse Reactions, Alerts Substance Reaction Codes Entered Date Inactivated Date Status LISINOPRIL RxNorm: 78217 02/12/2020 No Inactive Da te Active Metformin [...] 08/11/2022 Active Coronary artery disease invo lving lumbee coronary artery of lumbee heart, angina presence unspecified ICD-10: I25.10 ICD-9: [...] Instructions nystatin 100,000 unit/gram topical powder RxNorm: 393653 APPLY TO AFFECTED AREAS TOPICALLY 2 TIMES DAILY 11/21/19 23 024 Active Nystop 100,000 unit/gram topical powder RxNorm: 515289 Apply to abd folds, under breasts and L side of groin Topical BID x 14 days, then BID PRN 11/20/19 23 023 Inactive dx: yeast dermatitis Bengay Ultra Strength 4 %-30 %-10 % topical cream RxNorm: 327497 Apply 1 Gram(s) Topical QID PRN to feet and legs for neuropathic pain 11/11/19 23 024 Active hydrocortisone 2.5 % topical cream RxNorm: 012924 Apply 1/2 Gram(s) Topical BID as needed 11/10/19 No Stop Date Active clotrimazole 1 % topical cream RxNorm: 650811 Apply 1/2 Gram(s) Topical BID Apply to affected areas of groin, periarea, and abdominal topically 2 times daily 11/10/19 023 Inactive Levemir FlexPen 100 unit/mL (3 mL) solution subcutaneous insulin pen RxNorm: 330266 Inject 30 Unit(s) Subcutaneous BID 10/07/19 024 Active Humulin R U-500 (Concentrated) Insulin 500 unit/mL subcutaneous soln RxNorm: 271866 Inject 100 Unit(s) Subcutaneous TID 10/07/19 024 Active Ozempic 0.25 mg or 0.5 mg (2 mg/3 mL) subcutaneous pen injector RxNorm: 8100908 Inject 1/2 Milligram(s) Subcutaneous QW once a week 10/07/19 024 Active aripiprazole 15 mg tablet RxNorm: 954733 1/2 TAB (7.5MG) ORALLY DAILY (DX:MAJOR DEPRESSIVE DISORDER) 09/23/19 023 Active Accu-Chek Guide test strips RxNorm: Use 1 Test Strip QID 09/15/19 23 024 Active ok to substitute with any covered alternative test strip Lancets,Thin 28 gauge RxNorm: Use 1 as directed QID 09/15/19 23 024 Active torsemide 20 mg tablet RxNorm: 915436 Take 1 Tablet(s) Oral BID 09/09/19 024 Active d/c once daily dosing carvedilol 25 mg tablet RxNorm: 421908 Take 1 Tablet(s) Oral QD 08/25/19 024 Active pregabalin 150 mg capsule RxNorm: 558586 1 Capsule(s) Oral HS at bed time 08/18/19 023 Active pregabalin 100 mg capsule RxNorm: 823047 1 Capsule(s) Oral QAM every morning 08/18/19 023 Active carvedilol 25 mg tablet RxNorm: 518623 1 Tablet(s) Oral QD 07/28/19 023 Inactive lisinopril 20 mg tablet RxNorm: 501466 Give 1 Tablet(s) Oral QD 07/28/19 23 023 Inactive Lyrica 150 mg capsule RxNorm: 441340 Take 1 Capsule(s) Oral QHS every night at bedtime 07/19/19 23 023 Inactive d/c 100mg dose Diflucan 150 mg tablet RxNorm: 752622 Take 1 Tablet(s) Oral QD repeat on day 3 and 6 07/19/19 23 023 Inactive pregabalin 100 mg capsule RxNorm: 100952 Take 1 Capsule(s) Oral QAM every morning 07/19/19 23 023 Inactive gatifloxacin 0.5 % eye drops RxNorm: 748752 Instill 1 Drop(s) as directed TID Instill 1 drop in to affected eye(s) starting 1 day prior to surgery and continue until gone (do not exceed 4 weeks). 07/13/19 23 023 Inactive carvedilol 25 mg tablet RxNorm: 045045 2 Tablet(s) Oral BID 07/13/19 23 023 Inactive Humulin R Regular U-100 Insulin 100 unit/mL injection solution RxNorm: 906360 85 Unit(s) Injection TID 07/13/19 23 023 Inactive ketorolac 0.5 % eye drops RxNorm: 033416 Instill 1 Drop(s) as directed QID Instill 1 drop into affected eye(s) 4 times daily starting 1 day prior to surgery and continue until gone (do not exceed 4 weeks). 07/13/19 23 023 Inactive Diflucan 150 mg tablet RxNorm: 176015 Take 1 Tablet(s) Oral QD repeat on day 3 and 6 06/30/19 23 023 Inactive Accu-Chek Guide test strips RxNorm: Use 1 Test Strip QID Use 1 test strip to monitor blood glucose 4 times daily and as needed. Dx:E11.42. 06/23/19 23 023 Inactive ok to substitute with any covered alternative test strip dextromethorphan-gu aifenesin 10 mg-100 mg/5 mL oral liquid RxNorm: 222843 Take 10 Milliliter(s) Oral every 4 hours as needed for cough 06/19/19 23 023 Inactive dextromethorphan-gu aifenesin 10 mg-100 mg/5 mL oral liquid RxNorm: 327869 Take 10 Milliliter(s) Oral every 4 hours as needed for cough 06/19/19 023 Inactive Lyrica 150 mg capsule RxNorm: 321870 Take 1 Capsule(s) Oral QHS every night at bedtime 06/18/19 023 Inactive d/c 100mg dose aripiprazole 15 mg tablet RxNorm: 689698 1/2 TAB (7.5MG) ORALLY DAILY (DX:MAJOR DEPRESSIVE DISORDER) 06/05/19 023 Inactive pregabalin 100 mg capsule RxNorm: 535754 1 Capsule(s) Oral QAM every morning 06/02/19 023 Inactive Banophen 50 mg capsule RxNorm: 9097947 Take 1 Capsule(s) Oral Q6H every 6 hours as needed 05/19/19 23 No Stop Date Active Novolog Flexpen U-100 Insulin aspart 100 unit/mL (3 mL) subcutaneous RxNorm: 5609199 Inject 10 Unit(s) Subcutaneous QHS every night at bedtime with nighttime snack 04/08/20 022 Inactive Novolog Flexpen U-100 Insulin aspart 100 unit/mL (3 mL) subcutaneous RxNorm: 4505413 Inject 42 Unit(s) Subcutaneous TID in addition to sliding scale 04/08/20 022 Inactive d/c 36u albuterol sulfate HFA 90 mcg/actuation aerosol inhaler RxNorm: 4521973 Take 2 Puff(s) Inhalation Q4H every four hours as needed as needed for SOB, cough, or wheezing 04/07/20 030 Active Banophen 50 mg capsule RxNorm: 6567006 Take 1 Capsule(s) Oral Q6H every 6 hours as needed 04/06/20 023 Inactive diphenhydramine 50 mg tablet RxNorm: 3498701 Take 1 Tablet(s) Oral Q6H every 6 hours as needed 04/06/20 22 022 Inactive diphenhydramine 50 mg tablet RxNorm: 0902148 1 Tablet(s) Oral Q6H every 6 hours as needed 04/06/20 22 022 Inactive Abilify 15 mg tablet RxNorm: 864426 1/2 Tablet(s) Oral QD 03/10/20 023 Inactive Shingrix (PF) 50 mcg/0.5 mL intramuscular suspension, kit RxNorm: 6154545 Administer 1/2 Milliliter(s) Intramuscular QD one time shingrix step 2 ( step 1 given 11/04/21) WITH needle - Nursing please administer upon arrival and once administered post a bridge message with date of administration, customer care consultant, expiration date, and lot# so we can update [facility] 02/18/20 22 022 Inactive dispense with needle Shingrix (PF) 50 mcg/0.5 mL intramuscular suspension, kit RxNorm: 5844961 Administer 1/2 Milliliter(s) Intramuscular QD one time shingrix step 2 ( step 1 given 11/04/21) WITH needle - Nursing please administer upon arrival and once administered post a bridge message with date of administration, customer care consultant, expiration date, and lot# so we can update [facility] 02/18/20 22 022 Inactive dispense with needle acetaminophen 500 mg tablet RxNorm: 545539 Take 1 Tablet(s) Oral TID 01/08/20 22 023 Active d/c PRN order polyethylene glycol 3350 17 gram/dose oral powder RxNorm: 375347 Take 17=1 capful Gram(s) Oral QD mix with 4-8oz of liquid 01/08/20 22 023 Active take this in addition to BID prn order Lyrica 100 mg capsule RxNorm: 152323 Take 1 Capsule(s) Oral QAM every morning 01/08/20 22 022 Inactive d/c 50mg dose Lyrica 150 mg capsule RxNorm: 432941 Take 1 Capsule(s) Oral QHS every night at bedtime 01/08/20 22 023 Inactive d/c 100mg dose Abilify 5 mg tablet RxNorm: 356599 Take 1 Tablet(s) Oral QD take 1 tab po QD #30 refill 5 dx: MDD 12/12/19 22 022 Inactive Abilify 5 mg tablet RxNorm: 180423 Take 1 Tablet(s) Oral QD take 1 tab po QD #30 refill 5 dx: MDD 12/12/19 22 022 Inactive chlorthalidone 25 mg tablet RxNorm: 168576 Take 1 Tablet(s) Oral QAM every morning 12/10/19 22 023 Inactive Novolog Flexpen U-100 Insulin aspart 100 unit/mL (3 mL) subcutaneous RxNorm: 4755124 Inject 42 Unit(s) Subcutaneous TID in addition to sliding scale 12/10/19 22 022 Inactive d/c 36u pregabalin 50 mg capsule RxNorm: 661559 Take 1 Capsule(s) Oral QAM every morning 11/12/19 22 022 Inactive tetanus-diphtheria toxoids-Td 2 Lf unit-2 Lf unit/0.5 mL IM suspension RxNorm: 139 Take 0.5 Miscellaneous Intramuscular 11/12/19 22 022 Inactive need tdap - nursing to administer upon arrival pregabalin 50 mg capsule RxNorm: 927863 Take 1 Capsule(s) Oral QAM every morning 10/16/19 22 022 Inactive pregabalin 50 mg capsule RxNorm: 570638 Take 1 Capsule(s) Oral QAM every morning 10/16/19 22 022 Inactive pregabalin 50 mg capsule RxNorm: 751924 1 Capsule(s) Oral QAM every morning 10/15/19 22 022 Inactive Shingrix (PF) 50 mcg/0.5 mL intramuscular suspension, kit RxNorm: 5433158 Administer 1/2 Milliliter(s) Intramuscular one time Nursing please administer upon arrival and once administered post a bridge message with date of administration, customer care consultant, expiration date, and lot# so we can update [facility]. 10/09/19 22 022 Inactive shingrix step 1 Shingrix (PF) 50 mcg/0.5 mL intramuscular suspension, kit RxNorm: 4045367 Administer 1/2 Milliliter(s) Intramuscular one time Nursing please administer upon arrival and once administered post a bridge message with date of administration, customer care consultant, expiration date, and lot# so we can update [facility]. 10/09/19 22 Inactive shingrix step 1 cholecalciferol (vitamin D3) 1,250 mcg (50,000 unit) capsule RxNorm: 274760 Take 1 Capsule(s) Oral QW once a [...] aspart 100 unit/mL (3 mL) subcutaneous RxNorm: 3801603 Inject 10 Unit(s) Subcutaneous QHS every night at bedtime with nighttime snack 10/08/19 22 Inactive Shingrix (PF) 50 mcg/0.5 mL intramuscular suspension, kit RxNorm: 0723673 ADMINISTER 2-DOSE SERIES PER CDC GUIDELINES 10/08/19 22 022 Active Shingrix (PF) 50 mcg/0.5 mL intramuscular suspension, kit RxNorm: 3330434 ADMINISTER 2-DOSE SERIES PER CDC GUIDELINES 10/08/19 22 022 Inactive Novolog Flexpen U-100 Insulin aspart 100 unit/mL (3 mL) subcutaneous RxNorm: 5638539 Inject 36 Unit(s) Subcutaneous TID in addition to sliding scale 10/08/19 22 Inactive Novofine Autocover 30 gauge x 1/3 needle RxNorm: Use 1 Miscellaneous UD as directed Use 1 needle as directed to administer insulin 5 times a day Dx:E11.42. 10/03/19 22 Inactive ok to substitute with any covered alternative pen needle benzoyl peroxide 10 % topical cleanser RxNorm: 997768 Apply 1 Application Topical QD apply to face, wash rinse and dry once daily (may change to QOD if drying) 08/19/19 22 022 Inactive (%covered by insurance) #60ml refill 11 dx: acne benzoyl peroxide 10 % topical cleanser RxNorm: 796667 Apply 1 Application Topical QD apply to face, wash rinse and dry once daily (may change to QOD if drying) 08/19/19 22 022 Inactive (%covered by insurance) #60ml refill 11 dx: acne benzoyl peroxide 10 % topical cleanser RxNorm: 012960 Apply 1 Application Topical QD apply to face, wash rinse and dry once daily (may change to QOD if drying) 08/19/19 22 022 Inactive (%covered by insurance) #60ml refill 11 dx: acne Lyrica 50 mg capsule RxNorm: 690602 Take 1 Capsule(s) Oral QAM every morning Take 1 capsule by mouth once daily 08/19/19 022 Inactive benzoyl peroxide 10 % topical cleanser RxNorm: 705779 Apply 1 Application Topical QD apply to face, wash rinse and dry once daily (may change to QOD if drying) 08/19/19 22 022 Inactive (%covered by insurance) #60ml refill 11 dx: acne Lyrica 100 mg capsule RxNorm: 697233 Take 1 Capsule(s) Oral QHS every night at bedtime Take 1 capsule by mouth once daily at bedtime 08/19/19 22 022 Inactive Lyrica 100 mg capsule RxNorm: 796745 Take 1 Capsule(s) Oral QHS every night at bedtime Take 1 capsule by mouth once daily at bedtime 08/16/19 022 Inactive Lyrica 50 mg capsule RxNorm: 341676 Take 1 Capsule(s) Oral QAM every morning Take 1 capsule by mouth once daily 08/16/19 Inactive Levemir FlexTouch U-100 Insulin 100 unit/mL (3 mL) subcutaneous pen RxNorm: 376100 Inject 86 Unit(s) Subcutaneous BID 08/05/19 22 022 Inactive d/c 83units BID Lyrica 100 mg capsule RxNorm: 006777 Take 1 Capsule(s) Oral QHS every night at bedtime Take 1 capsule by mouth once daily at bedtime 07/14/19 22 Inactive Lyrica 50 mg capsule RxNorm: 392158 Take 1 Capsule(s) Oral QAM every morning Take 1 capsule by mouth once daily 07/14/19 22 Inactive Levemir FlexTouch U-100 Insulin 100 unit/mL (3 mL) subcutaneous pen RxNorm: 067262 Inject 83 Unit(s) Subcutaneous BID 07/08/19 22 [...] 30 mg tablet,extended release 24 hr RxNorm: 256028 Take 1 Tablet(s) Oral QD 05/05/20 No Stop Date Active hydralazine 50 mg tablet RxNorm: 210556 Take 1 Tablet(s) Oral QID 05/05/20 022 Inactive venlafaxine ER 225 mg tablet,extended release 24 hr RxNorm: 635207 Take 1 Tablet(s) Oral QD 05/05/20 Inactive venlafaxine ER 225 mg tablet,extended release 24 hr RxNorm: 046871 Take 1 Tablet(s) Oral QD 05/05/20 022 Inactive hydralazine 50 mg tablet RxNorm: 859777 Take 1 Tablet(s) Oral QID 05/05/20 Inactive aspirin 81 mg tablet,delayed release RxNorm: 806600 Take 1 Tablet(s) Oral QD 03/31/20 Inactive Zetia 10 mg tablet RxNorm: 382858 Take 1 Tablet(s) Oral QD 03/31/20 Inactive Vitamin D2 1,250 mcg (50,000 unit) capsule RxNorm: 3106340 Take 1 Capsule(s) Oral QW once a week x 12 weeks 03/31/20 022 Inactive Vitamin D2 1,250 mcg (50,000 unit) capsule RxNorm: 7843781 Take 1 Capsule(s) Oral QW once a week 03/31/20 Inactive Zetia 10 mg tablet RxNorm: 863081 Take 1 Tablet(s) Oral QD 03/31/20 Inactive hydralazine 25 mg tablet RxNorm: 321810 Take 1 Tablet(s) Oral QID 03/31/20 Inactive hydralazine 25 mg tablet RxNorm: 405518 Take 1 Tablet(s) Oral QID 03/31/20 021 Inactive hydralazine 10 mg tablet RxNorm: 156098 Take 1 Tablet(s) Oral QID 10/18/20 21 11/14/2 021 Inactive cephalexin 500 mg tablet RxNorm: 073889 Take 1 Tablet(s) Oral QID 02/27/20 21 021 Inactive cephalexin 500 mg tablet RxNorm: 783205 Take 1 Tablet(s) Oral QID 02/27/20 021 Inactive lisinopril 40 mg tablet RxNorm: 114081 Take 1 Tablet(s) Oral QD 02/11/20 023 Inactive Eliquis 5 mg tablet RxNorm: 8464562 Take 1 Tablet(s) Oral BID 01/05/20 21 022 Inactive Eliquis 5 mg tablet RxNorm: 1098211 Take 2 Tablet(s) Oral QD 01/01/20 21 021 Inactive Lyrica 50 mg capsule RxNorm: 771503 Take 1 Capsule(s) Oral QAM every morning 12/24/19 021 Inactive Lyrica 100 mg capsule RxNorm: 244811 Take 1 Capsule(s) Oral QHS every night at bedtime 12/24/19 021 Inactive clotrimazole 1 % topical cream RxNorm: 348330 Apply to right foot and toes Topical BID 12/04/19 21 023 Inactive metoprolol succinate ER 200 mg tablet,extended release 24 hr RxNorm: 217132 Take 1 Tablet(s) Oral QD 12/04/19 023 Inactive ciprofloxacin 500 mg tablet RxNorm: 083093 Take 1 Tablet(s) Oral QD 11/30/19 021 Inactive DX ofloxacin otic drops Accu-Chek Guide test strips RxNorm: USE 1 TO CHECK GLUCOSE 4 TIMES DAILY AND NEEDED 11/15/19 21 023 Inactive Blood Glucose Test strips RxNorm: Use 1 Test Strip QID at PRN 11/05/19 21 023 Inactive E11.42 lisinopril 30 mg tablet RxNorm: 951119 Take 1 Tablet(s) Oral QD 10/30/19 21 021 Inactive lisinopril 20 mg tablet RxNorm: 495428 Take 1 Tablet(s) Oral QD 10/23/19 21 021 Inactive lisinopril 20 mg tablet RxNorm: 277623 Take 1 Tablet(s) Oral QD 10/23/19 21 021 Inactive lisinopril 10 mg tablet RxNorm: 919027 Take 1 Tablet(s) Oral QD 10/02/19 21 021 Inactive icosapent ethyl 1 gram capsule RxNorm: 9829035 Take 2 Capsule(s) (2 gm) Oral BID with meals 09/12/19 022 Inactive Okay to dispense one 2gm tab if you have that available. icosapent ethyl 1 gram capsule RxNorm: 8609861 Take 2 Capsule(s) Oral BID 09/12/19 021 Inactive Okay to dispense one 2gm tab if you have that available. amlodipine 10 mg tablet RxNorm: 649348 Take 1 Tablet(s) Oral QD 09/04/19 022 Inactive aspirin 81 mg tablet,delayed release RxNorm: 741084 Take 1 Tablet(s) Oral QD 09/04/19 021 Inactive Levemir FlexTouch U-100 Insulin 100 unit/mL (3 mL) subcutaneous pen RxNorm: 061635 Inject 150 Unit(s) Subcutaneous BID 09/04/19 022 Inactive venlafaxine ER 150 mg tablet,extended release 24 hr RxNorm: 655125 Take 1 Tablet(s) Oral QD 09/04/19 021 Inactive clotrimazole-betame thasone 1 %-0.05 % topical cream RxNorm: 239866 Apply to rash on red area on left abdomen/chest Topical BID 08/10/19 21 021 Inactive amlodipine 5 mg tablet RxNorm: 960415 Take 1 Tablet(s) Oral QD 07/31/19 21 021 Inactive cephalexin 500 mg tablet RxNorm: 273079 Take 1 Tablet(s) Oral BID BID - Twice Daily 07/31/19 21 021 Inactive Start 08/01/20 pantoprazole 40 mg tablet,delayed release RxNorm: 977428 Take 1 Tablet(s) Oral QAM every morning 07/08/19 21 022 Inactive senna 8.6 mg tablet RxNorm: 398475 Take 1 Tablet(s) Oral QD 07/08/19 21 Inactive pravastatin 80 mg tablet RxNorm: 797814 Take 1 Tablet(s) Oral QHS every night at bedtime 07/08/19 21 Inactive carbamazepine 200 mg tablet RxNorm: 384256 Take 1 Tablet(s) Oral BID 07/08/19 21 Inactive clopidogrel 75 mg tablet RxNorm: 216092 Take 1 Tablet(s) Oral QD 07/08/19 21 Inactive Blood Glucose Test strips RxNorm: Use 1 Test Strip QID at PRN 07/08/19 21 Inactive E11.42 Novolog Flexpen U-100 Insulin aspart 100 unit/mL (3 mL) subcutaneous RxNorm: 8828970 Administer per sliding scale Milliliter(s) Subcutaneous TID 151-200: 10 u; 201-250: 20 u; 251-300: 30 u; 301-350: 40 u; 351-400: 50 u. 07/08/19 21 022 Inactive lisinopril 5 mg tablet RxNorm: 450535 Take 1 Tablet(s) Oral QD 07/08/19 Inactive Novolog Flexpen U-100 Insulin aspart 100 unit/mL (3 mL) subcutaneous RxNorm: 6317639 Inject 85 Unit(s) Subcutaneous TID 07/08/19 21 Inactive clotrimazole 1 % topical cream RxNorm: 770071 Apply to bilateral groin areas Topical BID 07/08/19 21 Inactive metoprolol succinate ER 200 mg tablet,extended release 24 hr RxNorm: 490678 Take 1 Tablet(s) Oral QD 07/08/19 21 Inactive Vitamin D3 25 mcg (1,000 unit) tablet RxNorm: 351513 Take 1 Tablet(s) Oral QD 07/08/19 21 Inactive isosorbide dinitrate 30 mg tablet RxNorm: 447429 Take 1 Tablet(s) Oral QD 07/08/19 21 Inactive Levemir FlexTouch U-100 Insulin 100 unit/mL (3 mL) subcutaneous pen RxNorm: 944730 Inject 140 Unit(s) Subcutaneous BID 07/08/19 21 021 Inactive torsemide 20 mg tablet RxNorm: 975248 Take 1 Tablet(s) Oral QD 07/08/19 21 023 Inactive venlafaxine 75 mg tablet RxNorm: 926472 Take 1 Tablet(s) Oral QD 07/08/19 21 021 Inactive acetaminophen 500 mg tablet RxNorm: 880392 Take 1 Tablet(s) Oral TID as needed for headache 06/18/19 21 021 Inactive acetaminophen 500 mg tablet RxNorm: 664384 Take 1 Tablet(s) Oral TID as needed for headache 06/18/19 21 021 Inactive Lyrica 100 mg capsule RxNorm: 938907 Take 1 Capsule(s) Oral QHS every night at bedtime 06/11/19 21 021 Inactive Lyrica 50 mg capsule RxNorm: 511933 Take 1 Capsule(s) Oral QAM every morning 06/10/19 21 021 Inactive hydrocortisone 2.5 % topical cream RxNorm: 696834 Apply to bilateral groin creases Topical BID 05/15/20 20 021 Inactive clotrimazole 1 % topical cream RxNorm: 178391 Apply to bilateral groin areas Topical BID 05/15/20 20 021 Inactive Lyrica 50 mg capsule RxNorm: 137106 Take 1 Capsule(s) Oral QAM every morning 05/14/20 20 020 Inactive Lyrica 100 mg capsule RxNorm: 984416 Take 1 Capsule(s) Oral QHS every night [...] Inactive Nystop 100,000 unit/gram topical powder RxNorm: 449767 Apply to abd folds, under breasts and L side of groin Topical BID x 14 days, then BID PRN 04/08/20 20 Inactive dx: yeast dermatitis Lyrica 100 mg capsule RxNorm: 135155 Take 1 Capsule(s) Oral QHS every night at bedtime 03/13/20 Inactive Lyrica 50 mg capsule RxNorm: 819295 Take 1 Capsule(s) Oral QAM every morning 03/13/20 20 Inactive ketoconazole 2 % shampoo RxNorm: 179457 Apply Topical two times a week with showers 03/11/20 20 Inactive cholecalciferol (vitamin D3) 50 mcg (2,000 unit) tablet RxNorm: 486942 Take 1 Tablet(s) Oral QD 03/11/20 20 Inactive Zetia 10 mg tablet RxNorm: 008456 Take 1 Tablet(s) Oral QD 03/07/20 20 021 Inactive Zetia 10 mg tablet RxNorm: 652417 Take 1 Tablet(s) Oral QD 03/07/20 20 Inactive Lyrica 50 mg capsule RxNorm: 779634 Take 1 Capsule(s) Oral QAM every morning 02/15/20 20 Inactive Lyrica 100 mg capsule RxNorm: 790011 Take 1 Capsule(s) Oral QHS every night at bedtime 02/15/20 20 Inactive Lyrica 100 mg capsule RxNorm: 927189 Take 1 Capsule(s) Oral QHS every night at bedtime 02/15/20 20 Inactive Lyrica 50 mg capsule RxNorm: 723670 Take 1 Capsule(s) Oral QAM every morning 02/15/20 20 020 Inactive venlafaxine ER 75 mg capsule,extended release 24 hr RxNorm: 107413 Take 3 Capsule(s) Oral QD 06/12/19 Active polyethylene glycol 3350 17 gram/dose oral powder RxNorm: 807659 Take 17=1 capful Gram(s) Oral BID as needed mix with 4-8oz of liquid 06/12/19 Active metoprolol succinate ER 200 mg tablet,extended release 24 hr RxNorm: 872256 Take 1 Tablet(s) Oral QD 08/12/19 23 Active loperamide 2 mg capsule RxNorm: 016098 Take 1 Capsule(s) Oral QID as needed 06/12/19 Active hydralazine 50 mg tablet RxNorm: 029787 Take 1 Tablet(s) Oral QID 08/12/19 23 Active icosapent ethyl 1 gram capsule RxNorm: 0023696 Take 2 Capsule(s) (2 gm) Oral BID with meals 10/07/19 23 023 Inactive Okay to dispense one 2gm tab if you have that available. Levemir FlexTouch U-100 Insulin 100 unit/mL (3 mL) subcutaneous pen RxNorm: 295372 Inject 80 Unit(s) Subcutaneous BID 07/14/19 23 023 Inactive Novolog Flexpen U-100 Insulin aspart 100 unit/mL (3 mL) subcutaneous RxNorm: 9996446 Insert 30 Unit(s) Subcutaneous TID with meals [...] [facility]: [address], [address] [id number] [place] Referral Records Received 09/21/2022 Referral: [facility] [place]: [address] [id number] [place] Referral Completed 05/28/2021 Referral: General Cardiology [...] Sister Jyotsna involved in his care cell# [phone] Guardian: Don (tapan met in person 09/01/21), now has Lexii (same group as don)Lab Schedule: * 10/06/2022
--- OUTSIDE RECORDS SUMMARY | 2022-12-08 02:00 | XMS_ITS | CCD ---
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 Burner Name Role Phone Tapan Shirley PA-C Primary Care Provider Unavailabl e Tapan Shirley PA-C Chronic Care Management Unavaila ble Summary Purpose DataExchange Insurance Providers Payer name Policy type / Coverage type Covered constitution party ID Effective Begin Date Effective End Date [place] Medicare Part B [id number] Unknown Unknown [place] Part B [id number] Unknown Unknown Family history Sister Brittany Suggs [...] Residential 09/03/[address]: 8841645 Non-Smoker / No History of Smoking 09/02/[address]: 800013811 No Alcohol Consum ption 09/02/2020 Allergies, Adverse Reactions, Alerts Substance Reaction Codes Entered Date Inactivated Date Status LISINOPRIL RxNorm: 57608 02/12/2020 No Inactive Da te Active Metformin [...] 08/11/2022 Active Coronary artery disease invo lving confederated [...] Instructions nystatin 100,000 unit/gram topical powder RxNorm: 178359 APPLY TO AFFECTED AREAS TOPICALLY 2 TIMES DAILY 11/21/19 23 024 Active Nystop 100,000 unit/gram topical powder RxNorm: 461713 Apply to abd folds, under breasts and L side of groin Topical BID x 14 days, then BID PRN 11/20/19 23 023 Inactive dx: yeast dermatitis Bengay Ultra Strength 4 %-30 %-10 % topical cream RxNorm: 436331 Apply 1 Gram(s) Topical QID PRN to feet and legs for neuropathic pain 11/11/19 024 Active hydrocortisone 2.5 % topical cream RxNorm: 821884 Apply 1/2 Gram(s) Topical BID as needed 11/10/19 No Stop Date Active clotrimazole 1 % topical cream RxNorm: 869810 Apply 1/2 Gram(s) Topical BID Apply to affected areas of groin, periarea, and abdominal topically 2 times daily 11/10/19 023 Inactive Levemir FlexPen 100 unit/mL (3 mL) solution subcutaneous insulin pen RxNorm: 774962 Inject 30 Unit(s) Subcutaneous BID 10/07/19 024 Active Humulin R U-500 (Concentrated) Insulin 500 unit/mL subcutaneous soln RxNorm: 913362 Inject 100 Unit(s) Subcutaneous TID 10/07/19 024 Active Ozempic 0.25 mg or 0.5 mg (2 mg/3 mL) subcutaneous pen injector RxNorm: 1536547 Inject 1/2 Milligram(s) Subcutaneous QW once a week 10/07/19 024 Active aripiprazole 15 mg tablet RxNorm: 228563 1/2 TAB (7.5MG) ORALLY DAILY (DX:MAJOR DEPRESSIVE DISORDER) 09/23/19 023 Active Accu-Chek Guide test strips RxNorm: Use 1 Test Strip QID 09/15/19 23 024 Active ok to substitute with any covered alternative test strip Lancets,Thin 28 gauge RxNorm: Use 1 as directed QID 09/15/19 23 024 Active torsemide 20 mg tablet RxNorm: 542062 Take 1 Tablet(s) Oral BID 09/09/19 024 Active d/c once daily dosing carvedilol 25 mg tablet RxNorm: 516401 Take 1 Tablet(s) Oral QD 08/25/19 024 Active pregabalin 150 mg capsule RxNorm: 734310 1 Capsule(s) Oral HS at bed time 08/18/19 023 Active pregabalin 100 mg capsule RxNorm: 847503 1 Capsule(s) Oral QAM every morning 08/18/19 23 023 Active carvedilol 25 mg tablet RxNorm: 503102 1 Tablet(s) Oral QD 07/28/19 23 023 Inactive lisinopril 20 mg tablet RxNorm: 700335 Give 1 Tablet(s) Oral QD 07/28/19 23 023 Inactive Lyrica 150 mg capsule RxNorm: 997014 Take 1 Capsule(s) Oral QHS every night at bedtime 07/19/19 23 023 Inactive d/c 100mg dose Diflucan 150 mg tablet RxNorm: 152745 Take 1 Tablet(s) Oral QD repeat on day 3 and 6 07/19/19 23 023 Inactive pregabalin 100 mg capsule RxNorm: 684026 Take 1 Capsule(s) Oral QAM every morning 07/19/19 023 Inactive gatifloxacin 0.5 % eye drops RxNorm: 682668 Instill 1 Drop(s) as directed TID Instill 1 drop in to affected eye(s) starting 1 day prior to surgery and continue until gone (do not exceed 4 weeks). 07/13/19 23 023 Inactive carvedilol 25 mg tablet RxNorm: 525602 2 Tablet(s) Oral BID 07/13/19 023 Inactive Humulin R Regular U-100 Insulin 100 unit/mL injection solution RxNorm: 373305 85 Unit(s) Injection TID 07/13/19 23 023 Inactive ketorolac 0.5 % eye drops RxNorm: 333256 Instill 1 Drop(s) as directed QID Instill 1 drop into affected eye(s) 4 times daily starting 1 day prior to surgery and continue until gone (do not exceed 4 weeks). 07/13/19 23 023 Inactive Diflucan 150 mg tablet RxNorm: 596320 Take 1 Tablet(s) Oral QD repeat on day 3 and 6 06/30/19 23 023 Inactive Accu-Chek Guide test strips RxNorm: Use 1 Test Strip QID Use 1 test strip to monitor blood glucose 4 times daily and as needed. Dx:E11.42. 06/23/19 023 Inactive ok to substitute with any covered alternative test strip dextromethorphan-gu aifenesin 10 mg-100 mg/5 mL oral liquid RxNorm: 344064 Take 10 Milliliter(s) Oral every 4 hours as needed for cough 06/19/19 023 Inactive dextromethorphan-gu aifenesin 10 mg-100 mg/5 mL oral liquid RxNorm: 416985 Take 10 Milliliter(s) Oral every 4 hours as needed for cough 06/19/19 023 Inactive Lyrica 150 mg capsule RxNorm: 238439 Take 1 Capsule(s) Oral QHS every night at bedtime 06/18/19 023 Inactive d/c 100mg dose aripiprazole 15 mg tablet RxNorm: 349020 /2 TAB (7.5MG) ORALLY DAILY (DX:MAJOR DEPRESSIVE DISORDER) 06/05/19 023 Inactive pregabalin 100 mg capsule RxNorm: 667502 1 Capsule(s) Oral QAM every morning 06/02/19 023 Inactive Banophen 50 mg capsule RxNorm: 4643298 Take 1 Capsule(s) Oral Q6H every 6 hours as needed 05/19/19 23 No Stop Date Active Novolog Flexpen U-100 Insulin aspart 100 unit/mL (3 mL) subcutaneous RxNorm: 8747738 Inject 10 Unit(s) Subcutaneous QHS every night at bedtime with nighttime snack 04/08/20 022 Inactive Novolog Flexpen U-100 Insulin aspart 100 unit/mL (3 mL) subcutaneous RxNorm: 6776376 Inject 42 Unit(s) Subcutaneous TID in addition to sliding scale 04/08/20 022 Inactive d/c 36u albuterol sulfate HFA 90 mcg/actuation aerosol inhaler RxNorm: 3234440 Take 2 Puff(s) Inhalation Q4H every four hours as needed as needed for SOB, cough, or wheezing 04/07/20 22 030 Active Banophen 50 mg capsule RxNorm: 4383562 Take 1 Capsule(s) Oral Q6H every 6 hours as needed 04/06/20 023 Inactive diphenhydramine 50 mg tablet RxNorm: 8643875 Take 1 Tablet(s) Oral Q6H every 6 hours as needed 04/06/20 022 Inactive diphenhydramine 50 mg tablet RxNorm: 4292069 1 Tablet(s) Oral Q6H every 6 hours as needed 04/06/20 022 Inactive Abilify 15 mg tablet RxNorm: 376379 1/2 Tablet(s) Oral QD 03/10/20 023 Inactive Shingrix (PF) 50 mcg/0.5 mL intramuscular suspension, kit RxNorm: 0038307 Administer 1/2 Milliliter(s) Intramuscular QD one time shingrix step 2 ( step 1 given 11/04/21) WITH needle - Nursing please administer upon arrival and once administered post a bridge message 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, 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, expiration date, and lot# so we can update [facility]IC 02/18/20 22 022 Inactive dispense with needle Shingrix (PF) 50 mcg/0.5 mL intramuscular suspension, kit RxNorm: 5004972 Administer 1/2 Milliliter(s) Intramuscular QD one time shingrix step 2 ( step 1 given 11/04/21) WITH needle - Nursing please administer upon arrival and once administered post a bridge message with 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, 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, expiration date, and lot# so we can update [facility]IC 02/18/20 22 022 Inactive dispense with needle acetaminophen 500 mg tablet RxNorm: 324415 Take 1 Tablet(s) Oral TID 01/08/20 22 023 Active d/c PRN order polyethylene glycol 3350 17 gram/dose oral powder RxNorm: 513701 Take 17=1 capful Gram(s) Oral QD mix with 4-8oz of liquid 01/08/20 22 023 Active take this in addition to BID prn order Lyrica 100 mg capsule RxNorm: 714591 Take 1 Capsule(s) Oral QAM every morning 01/08/20 22 022 Inactive d/c 50mg dose Lyrica 150 mg capsule RxNorm: 813076 Take 1 Capsule(s) Oral QHS every night at bedtime 01/08/20 22 023 Inactive d/c 100mg dose Abilify 5 mg tablet RxNorm: 550034 Take 1 Tablet(s) Oral QD take 1 tab po QD #30 refill 5 dx: MDD 12/12/19 22 022 Inactive Abilify 5 mg tablet RxNorm: 449438 Take 1 Tablet(s) Oral QD take 1 tab po QD #30 refill 5 dx: MDD 12/12/19 22 022 Inactive Novolog Flexpen U-100 Insulin aspart 100 unit/mL (3 mL) subcutaneous RxNorm: 2109121 Inject 42 Unit(s) Subcutaneous TID in addition to sliding scale 12/10/19 22 022 Inactive d/c 36u chlorthalidone 25 mg tablet RxNorm: 710128 Take 1 Tablet(s) Oral QAM every morning 12/10/19 22 023 Inactive pregabalin 50 mg capsule RxNorm: 602062 Take 1 Capsule(s) Oral QAM every morning 11/12/19 22 022 Inactive tetanus-diphtheria toxoids-Td 2 Lf unit-2 Lf unit/0.5 mL IM suspension RxNorm: 139 Take 0.5 Miscellaneous Intramuscular 11/12/19 22 022 Inactive need tdap - nursing to administer upon arrival pregabalin 50 mg capsule RxNorm: 212421 Take 1 Capsule(s) Oral QAM every morning 10/16/19 22 022 Inactive pregabalin 50 mg capsule RxNorm: 580956 Take 1 Capsule(s) Oral QAM every morning 10/16/19 22 022 Inactive pregabalin 50 mg capsule RxNorm: 376700 1 Capsule(s) Oral QAM every morning 10/15/19 22 022 Inactive Shingrix (PF) 50 mcg/0.5 mL intramuscular suspension, kit RxNorm: 7623690 Administer 1/2 Milliliter(s) Intramuscular one time Nursing please administer upon arrival and once administered post a bridge message with 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 10/09/19 22 Inactive shingrix step 1 cholecalciferol (vitamin D3) 1,250 mcg (50,000 unit) capsule RxNorm: 428345 Take 1 Capsule(s) Oral QW once a [...] aspart 100 unit/mL (3 mL) subcutaneous RxNorm: 1198622 Inject 10 Unit(s) Subcutaneous QHS every night at bedtime with nighttime snack 10/08/19 22 Inactive Shingrix (PF) 50 mcg/0.5 mL intramuscular suspension, kit RxNorm: 8011606 ADMINISTER 2-DOSE SERIES PER CDC GUIDELINES 10/08/19 22 Active Shingrix (PF) 50 mcg/0.5 mL intramuscular suspension, kit RxNorm: 7801962 ADMINISTER 2-DOSE SERIES PER CDC GUIDELINES 10/08/19 22 Inactive Novolog Flexpen U-100 Insulin aspart 100 unit/mL (3 mL) subcutaneous RxNorm: 9133979 Inject 36 Unit(s) Subcutaneous TID in addition to sliding scale 10/08/19 22 Inactive Novofine Autocover 30 gauge x 1/3 needle RxNorm: Use 1 Miscellaneous UD as directed Use 1 needle as directed to administer insulin 5 times a day Dx:E11.42. 10/03/19 22 022 Inactive ok to substitute with any covered alternative pen needle benzoyl peroxide 10 % topical cleanser RxNorm: 785144 Apply 1 Application Topical QD apply to face, wash rinse and dry once daily (may change to QOD if drying) 08/19/19 22 022 Inactive (%covered by insurance) #60ml refill 11 dx: acne benzoyl peroxide 10 % topical cleanser RxNorm: 733860 Apply 1 Application Topical QD apply to face, wash rinse and dry once daily (may change to QOD if drying) 08/19/19 22 022 Inactive (%covered by insurance) #60ml refill 11 dx: acne benzoyl peroxide 10 % topical cleanser RxNorm: 123337 Apply 1 Application Topical QD apply to face, wash rinse and dry once daily (may change to QOD if drying) 08/19/19 22 022 Inactive (%covered by insurance) #60ml refill 11 dx: acne Lyrica 50 mg capsule RxNorm: 642832 Take 1 Capsule(s) Oral QAM every morning Take 1 capsule by mouth once daily 08/19/19 22 022 Inactive benzoyl peroxide 10 % topical cleanser RxNorm: 523039 Apply 1 Application Topical QD apply to face, wash rinse and dry once daily (may change to QOD if drying) 08/19/19 022 Inactive (%covered by insurance) #60ml refill 11 dx: acne Lyrica 100 mg capsule RxNorm: 024316 Take 1 Capsule(s) Oral QHS every night at bedtime Take 1 capsule by mouth once daily at bedtime 08/19/19 22 022 Inactive Lyrica 100 mg capsule RxNorm: 132736 Take 1 Capsule(s) Oral QHS every night at bedtime Take 1 capsule by mouth once daily at bedtime 08/16/19 22 022 Inactive Lyrica 50 mg capsule RxNorm: 485362 Take 1 Capsule(s) Oral QAM every morning Take 1 capsule by mouth once daily 08/16/19 22 022 Inactive Levemir FlexTouch U-100 Insulin 100 unit/mL (3 mL) subcutaneous pen RxNorm: 548210 Inject 86 Unit(s) Subcutaneous BID 08/05/19 22 022 Inactive d/c 83units BID Lyrica 100 mg capsule RxNorm: 360227 Take 1 Capsule(s) Oral QHS every night at bedtime Take 1 capsule by mouth once daily at bedtime 07/14/19 22 022 Inactive Lyrica 50 mg capsule RxNorm: 542850 Take 1 Capsule(s) Oral QAM every morning Take 1 capsule by mouth once daily 07/14/19 22 022 Inactive Levemir FlexTouch U-100 Insulin 100 unit/mL (3 mL) subcutaneous pen RxNorm: 409548 Inject 83 Unit(s) Subcutaneous BID 07/08/19 22 [...] 30 mg tablet,extended release 24 hr RxNorm: 799835 Take 1 Tablet(s) Oral QD 05/05/20 No Stop Date Active hydralazine 50 mg tablet RxNorm: 456541 Take 1 Tablet(s) Oral QID 05/05/20 Inactive venlafaxine ER 225 mg tablet,extended release 24 hr RxNorm: 295037 Take 1 Tablet(s) Oral QD 05/05/20 Inactive venlafaxine ER 225 mg tablet,extended release 24 hr RxNorm: 363931 Take 1 Tablet(s) Oral QD 05/05/20 Inactive hydralazine 50 mg tablet RxNorm: 902162 Take 1 Tablet(s) Oral QID 05/05/20 Inactive aspirin 81 mg tablet,delayed release RxNorm: 292068 Take 1 Tablet(s) Oral QD 03/31/20 Inactive Zetia 10 mg tablet RxNorm: 305184 Take 1 Tablet(s) Oral QD 03/31/20 Inactive Vitamin D2 1,250 mcg (50,000 unit) capsule RxNorm: 8116380 Take 1 Capsule(s) Oral QW once a week x 12 weeks 03/31/20 Inactive Vitamin D2 1,250 mcg (50,000 unit) capsule RxNorm: 3134563 Take 1 Capsule(s) Oral QW once a week 03/31/20 Inactive Zetia 10 mg tablet RxNorm: 259090 Take 1 Tablet(s) Oral QD 03/31/20 Inactive hydralazine 25 mg tablet RxNorm: 852513 Take 1 Tablet(s) Oral QID 03/31/20 Inactive hydralazine 25 mg tablet RxNorm: 987815 Take 1 Tablet(s) Oral QID 03/31/20 021 Inactive hydralazine 10 mg tablet RxNorm: 464357 Take 1 Tablet(s) Oral QID 03/03/20 021 Inactive cephalexin 500 mg tablet RxNorm: 472032 Take 1 Tablet(s) Oral QID 02/27/20 021 Inactive cephalexin 500 mg tablet RxNorm: 634444 Take 1 Tablet(s) Oral QID 02/27/20 021 Inactive lisinopril 40 mg tablet RxNorm: 383575 Take 1 Tablet(s) Oral QD 02/11/20 023 Inactive Eliquis 5 mg tablet RxNorm: 7839666 Take 1 Tablet(s) Oral BID 01/05/20 022 Inactive Eliquis 5 mg tablet RxNorm: 0303024 Take 2 Tablet(s) Oral QD 01/01/20 21 021 Inactive Lyrica 50 mg capsule RxNorm: 135818 Take 1 Capsule(s) Oral QAM every morning 12/24/19 021 Inactive Lyrica 100 mg capsule RxNorm: 947346 Take 1 Capsule(s) Oral QHS every night at bedtime 12/24/19 021 Inactive clotrimazole 1 % topical cream RxNorm: 878494 Apply to right foot and toes Topical BID 12/04/19 21 023 Inactive metoprolol succinate ER 200 mg tablet,extended release 24 hr RxNorm: 889964 Take 1 Tablet(s) Oral QD 12/04/19 023 Inactive ciprofloxacin 500 mg tablet RxNorm: 504003 Take 1 Tablet(s) Oral QD 11/30/19 21 021 Inactive DX ofloxacin otic drops Accu-Chek Guide test strips RxNorm: USE 1 TO CHECK GLUCOSE 4 TIMES DAILY AND NEEDED 11/15/19 21 023 Inactive Blood Glucose Test strips RxNorm: Use 1 Test Strip QID at PRN 11/05/19 21 023 Inactive E11.42 lisinopril 30 mg tablet RxNorm: 080902 Take 1 Tablet(s) Oral QD 10/30/19 Inactive lisinopril 20 mg tablet RxNorm: 011284 Take 1 Tablet(s) Oral QD 10/23/19 21 021 Inactive lisinopril 20 mg tablet RxNorm: 783665 Take 1 Tablet(s) Oral QD 10/23/19 21 021 Inactive lisinopril 10 mg tablet RxNorm: 031349 Take 1 Tablet(s) Oral QD 10/02/19 021 Inactive icosapent ethyl 1 gram capsule RxNorm: 4088730 Take 2 Capsule(s) (2 gm) Oral BID with meals 09/12/19 022 Inactive Okay to dispense one 2gm tab if you have that available. icosapent ethyl 1 gram capsule RxNorm: 9496749 Take 2 Capsule(s) Oral BID 09/12/19 021 Inactive Okay to dispense one 2gm tab if you have that available. amlodipine 10 mg tablet RxNorm: 252372 Take 1 Tablet(s) Oral QD 09/04/19 022 Inactive aspirin 81 mg tablet,delayed release RxNorm: 691375 Take 1 Tablet(s) Oral QD 09/04/19 021 Inactive Levemir FlexTouch U-100 Insulin 100 unit/mL (3 mL) subcutaneous pen RxNorm: 983287 Inject 150 Unit(s) Subcutaneous BID 09/04/19 022 Inactive venlafaxine ER 150 mg tablet,extended release 24 hr RxNorm: 126221 Take 1 Tablet(s) Oral QD 09/04/19 21 021 Inactive clotrimazole-betame thasone 1 %-0.05 % topical cream RxNorm: 473553 Apply to rash on red area on left abdomen/chest Topical BID 08/10/19 Inactive amlodipine 5 mg tablet RxNorm: 275884 Take 1 Tablet(s) Oral QD 07/31/19 21 021 Inactive cephalexin 500 mg tablet RxNorm: 919192 Take 1 Tablet(s) Oral BID BID - Twice Daily 07/31/19 21 021 Inactive Start 08/01/20 pantoprazole 40 mg tablet,delayed release RxNorm: 444195 Take 1 Tablet(s) Oral QAM every morning 07/08/19 Inactive senna 8.6 mg tablet RxNorm: 344434 Take 1 Tablet(s) Oral QD 07/08/19 Inactive pravastatin 80 mg tablet RxNorm: 302551 Take 1 Tablet(s) Oral QHS every night at bedtime 07/08/19 Inactive carbamazepine 200 mg tablet RxNorm: 658115 Take 1 Tablet(s) Oral BID 07/08/19 Inactive clopidogrel 75 mg tablet RxNorm: 991213 Take 1 Tablet(s) Oral QD 07/08/19 Inactive Blood Glucose Test strips RxNorm: Use 1 Test Strip QID at PRN 07/08/19 Inactive E11.42 Novolog Flexpen U-100 Insulin aspart 100 unit/mL (3 mL) subcutaneous RxNorm: 4896595 Administer per sliding scale Milliliter(s) Subcutaneous TID 151-200: 10 u; 201-250: 20 u; 251-300: 30 u; 301-350: 40 u; 351-400: 50 u. 07/08/19 Inactive lisinopril 5 mg tablet RxNorm: 652687 Take 1 Tablet(s) Oral QD 07/08/19 Inactive Novolog Flexpen U-100 Insulin aspart 100 unit/mL (3 mL) subcutaneous RxNorm: 3674474 Inject 85 Unit(s) Subcutaneous TID 07/08/19 Inactive clotrimazole 1 % topical cream RxNorm: 851416 Apply to bilateral groin areas Topical BID 07/08/19 Inactive metoprolol succinate ER 200 mg tablet,extended release 24 hr RxNorm: 873690 Take 1 Tablet(s) Oral QD 07/08/19 Inactive Vitamin D3 25 mcg (1,000 unit) tablet RxNorm: 869229 Take 1 Tablet(s) Oral QD 02/22/20 21 04/19/2 021 Inactive isosorbide dinitrate 30 mg tablet RxNorm: 826538 Take 1 Tablet(s) Oral QD 07/08/19 21 021 Inactive Levemir FlexTouch U-100 Insulin 100 unit/mL (3 mL) subcutaneous pen RxNorm: 654551 Inject 140 Unit(s) Subcutaneous BID 07/08/19 21 021 Inactive torsemide 20 mg tablet RxNorm: 621521 Take 1 Tablet(s) Oral QD 07/08/19 21 023 Inactive venlafaxine 75 mg tablet RxNorm: 895457 Take 1 Tablet(s) Oral QD 07/08/19 021 Inactive acetaminophen 500 mg tablet RxNorm: 356076 Take 1 Tablet(s) Oral TID as needed for headache 06/18/19 021 Inactive acetaminophen 500 mg tablet RxNorm: 136080 Take 1 Tablet(s) Oral TID as needed for headache 06/18/19 021 Inactive Lyrica 100 mg capsule RxNorm: 416130 Take 1 Capsule(s) Oral QHS every night at bedtime 06/11/19 021 Inactive Lyrica 50 mg capsule RxNorm: 877462 Take 1 Capsule(s) Oral QAM every morning 06/10/19 21 021 Inactive hydrocortisone 2.5 % topical cream RxNorm: 176693 Apply to bilateral groin creases Topical BID 05/15/20 20 021 Inactive clotrimazole 1 % topical cream RxNorm: 905278 Apply to bilateral groin areas Topical BID 05/15/20 20 021 Inactive Lyrica 50 mg capsule RxNorm: 600735 Take 1 Capsule(s) Oral QAM every morning 05/14/20 20 020 Inactive Lyrica 100 mg capsule RxNorm: 007759 Take 1 Capsule(s) Oral QHS every night [...] Inactive Nystop 100,000 unit/gram topical powder RxNorm: 286073 Apply to abd folds, under breasts and L side of groin Topical BID x 14 days, then BID PRN 04/08/20 20 Inactive dx: yeast dermatitis Lyrica 100 mg capsule RxNorm: 788154 Take 1 Capsule(s) Oral QHS every night at bedtime 03/13/20 20 Inactive Lyrica 50 mg capsule RxNorm: 716676 Take 1 Capsule(s) Oral QAM every morning 03/13/20 20 Inactive ketoconazole 2 % shampoo RxNorm: 267805 Apply Topical two times a week with showers 03/11/20 20 Inactive cholecalciferol (vitamin D3) 50 mcg (2,000 unit) tablet RxNorm: 268717 Take 1 Tablet(s) Oral QD 03/11/20 20 021 Inactive Zetia 10 mg tablet RxNorm: 405761 Take 1 Tablet(s) Oral QD 03/07/20 20 021 Inactive Zetia 10 mg tablet RxNorm: 972143 Take 1 Tablet(s) Oral QD 03/07/20 20 Inactive Lyrica 50 mg capsule RxNorm: 012100 Take 1 Capsule(s) Oral QAM every morning 02/15/20 20 Inactive Lyrica 100 mg capsule RxNorm: 021479 Take 1 Capsule(s) Oral QHS every night at bedtime 02/15/20 20 Inactive Lyrica 100 mg capsule RxNorm: 731766 Take 1 Capsule(s) Oral QHS every night at bedtime 02/15/20 20 Inactive Lyrica 50 mg capsule RxNorm: 543511 Take 1 Capsule(s) Oral QAM every morning 02/15/20 20 020 Inactive venlafaxine ER 75 mg capsule,extended release 24 hr RxNorm: 691077 Take 3 Capsule(s) Oral QD 06/12/19 22 Active polyethylene glycol 3350 17 gram/dose oral powder RxNorm: 568527 Take 17=1 capful Gram(s) Oral BID as needed mix with 4-8oz of liquid 06/12/19 22 Active metoprolol succinate ER 200 mg tablet,extended release 24 hr RxNorm: 907050 Take 1 Tablet(s) Oral QD 08/12/19 23 Active loperamide 2 mg capsule RxNorm: 181065 Take 1 Capsule(s) Oral QID as needed 06/12/19 22 Active hydralazine 50 mg tablet RxNorm: 097993 Take 1 Tablet(s) Oral QID 08/12/19 23 Active icosapent ethyl 1 gram capsule RxNorm: 5196504 Take 2 Capsule(s) (2 gm) Oral BID with meals 10/07/19 23 023 Inactive Okay to dispense one 2gm tab if you have that available. Levemir FlexTouch U-100 Insulin 100 unit/mL (3 mL) subcutaneous pen RxNorm: 604343 Inject 80 Unit(s) Subcutaneous BID 07/14/19 23 023 Inactive Novolog Flexpen U-100 Insulin aspart 100 unit/mL (3 mL) subcutaneous RxNorm: 6855274 Insert 30 Unit(s) Subcutaneous TID with meals [...] Patient Education: Patient M edication Summary Completed 12/08/2022 Patient Education: Influenza Vaccine Completed 12/08/2022 Appointment: Tapan Shirley WPtel: [address] [facility] 10/26/2022 Referral: [facility] WPtel: [address], [address] [id number] Referral Records Received 09/21/2022 Appointment: Tapan Shirley WPtel: [address] [facility] [address] [id number] F/U 08/11/2022 Appointment: Tapan Shirley WPtel: [address] [place] F/U 07/14/2022 Appointment: Tapan Shirley WPtel: [address] F/U 02/10/2022 Referral: [facility] WPtel: [address] [id number] [place] Referral Completed 05/28/2021 Referral: General Cardiology Referral Complet ed 01/03/2021 Referral: General Psychologist Referral Close d Instructions Comment Date Leonid is a Male being seen living at [facility]. Initial BPS visit 01/2020. PMHx including DMII, CAD w/ 5 stents, Depression, Seizure Disorder and CKD stage 3. He moved into [facility] in 12/2019 but after a hospitalization 05/2021 he moved to the [facility] to have closer nursing attention. Sister Jyotsna involved in his care cell# [phone] Guardian: Don (tapan met in person 09/01/21), now has Lexii (same group as don)Lab Schedule: * 10/06/2022
--- OUTSIDE RECORDS SUMMARY | 2022-12-08 02:00 | XMS_ITS | CCD ---
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 Chain Carrier Name Role Phone Tapan Shirley PA-C Primary Care Provider Unavailabl e Tapan Shirley PA-C Chronic Care Management Unavaila ble Summary Purpose DataExchange Insurance Providers Payer name Policy type / Coverage type Covered alliance party ID Effective Begin Date Effective End Date [place] [id number] Unknown Unknown [place] [id number] Unknown Unknown Family history Sister Brittany Suggs [...] Jail 09/03/[address]: 6019923 Non-Smoker / No History of Smoking 09/02/[address]: 681619019 No Alcohol Consum ption 09/02/2020 Allergies, Adverse Reactions, Alerts Substance Reaction Codes Entered Date Inactivated Date Status LISINOPRIL RxNorm: 98495 02/12/2020 No Inactive Da te Active Metformin [...] 08/11/2022 Active Coronary artery disease invo lving [place] coronary artery of [place] heart, angina presence unspecified ICD-10: I25.10 ICD-9: [...] ICD-10: Z23 ICD-9: V03.89 02/10/2022 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 ICD-10: Z79.4 [...] Instructions nystatin 100,000 unit/gram topical powder RxNorm: 556160 APPLY TO AFFECTED AREAS TOPICALLY 2 TIMES DAILY 11/21/19 23 024 Active Nystop 100,000 unit/gram topical powder RxNorm: 050542 Apply to abd folds, under breasts and L side of groin Topical BID x 14 days, then BID PRN 11/20/19 23 023 Inactive dx: yeast dermatitis [place] Ultra Strength 4 %-30 %-10 % topical cream RxNorm: 567946 Apply 1 Gram(s) Topical QID PRN to feet and legs for neuropathic pain 11/11/19 23 024 Active hydrocortisone 2.5 % topical cream RxNorm: 086029 Apply 1/2 Gram(s) Topical BID as needed 11/10/19 No Stop Date Active clotrimazole 1 % topical cream RxNorm: 145427 Apply 1/2 Gram(s) Topical BID Apply to affected areas of groin, periarea, and abdominal topically 2 times daily 11/10/19 023 Inactive Levemir FlexPen 100 unit/mL (3 mL) solution subcutaneous insulin pen RxNorm: 065216 Inject 30 Unit(s) Subcutaneous BID 10/07/19 024 Active Humulin R U-500 (Concentrated) Insulin 500 unit/mL subcutaneous soln RxNorm: 189868 Inject 100 Unit(s) Subcutaneous TID 10/07/19 024 Active Ozempic 0.25 mg or 0.5 mg (2 mg/3 mL) subcutaneous pen injector RxNorm: 3105650 Inject 1/2 Milligram(s) Subcutaneous QW once a week 10/07/19 024 Active aripiprazole 15 mg tablet RxNorm: 182827 1/2 TAB (7.5MG) ORALLY DAILY (DX:MAJOR DEPRESSIVE DISORDER) 09/23/19 023 Active Accu-Chek Guide test strips RxNorm: Use 1 Test Strip QID 09/15/19 23 024 Active ok to substitute with any covered alternative test strip Lancets,Thin 28 gauge RxNorm: Use 1 as directed QID 09/15/19 23 024 Active torsemide 20 mg tablet RxNorm: 654325 Take 1 Tablet(s) Oral BID 09/09/19 024 Active d/c once daily dosing carvedilol 25 mg tablet RxNorm: 074731 Take 1 Tablet(s) Oral QD 08/25/19 024 Active pregabalin 150 mg capsule RxNorm: 599376 1 Capsule(s) Oral HS at bed time 08/18/19 023 Active pregabalin 100 mg capsule RxNorm: 842929 1 Capsule(s) Oral QAM every morning 08/18/19 023 Active carvedilol 25 mg tablet RxNorm: 828822 1 Tablet(s) Oral QD 07/28/19 023 Inactive lisinopril 20 mg tablet RxNorm: 384644 Give 1 Tablet(s) Oral QD 07/28/19 23 023 Inactive Lyrica 150 mg capsule RxNorm: 102061 Take 1 Capsule(s) Oral QHS every night at bedtime 07/19/19 23 023 Inactive d/c 100mg dose Diflucan 150 mg tablet RxNorm: 780564 Take 1 Tablet(s) Oral QD repeat on day 3 and 6 07/19/19 23 023 Inactive pregabalin 100 mg capsule RxNorm: 826411 Take 1 Capsule(s) Oral QAM every morning 07/19/19 23 023 Inactive gatifloxacin 0.5 % eye drops RxNorm: 135533 Instill 1 Drop(s) as directed TID Instill 1 drop in to affected eye(s) starting 1 day prior to surgery and continue until gone (do not exceed 4 weeks). 07/13/19 23 023 Inactive carvedilol 25 mg tablet RxNorm: 108490 2 Tablet(s) Oral BID 07/13/19 23 023 Inactive Humulin R Regular U-100 Insulin 100 unit/mL injection solution RxNorm: 960536 85 Unit(s) Injection TID 07/13/19 23 023 Inactive ketorolac 0.5 % eye drops RxNorm: 741285 Instill 1 Drop(s) as directed QID Instill 1 drop into affected eye(s) 4 times daily starting 1 day prior to surgery and continue until gone (do not exceed 4 weeks). 07/13/19 23 023 Inactive Diflucan 150 mg tablet RxNorm: 072365 Take 1 Tablet(s) Oral QD repeat on day 3 and 6 06/30/19 23 023 Inactive Accu-Chek Guide test strips RxNorm: Use 1 Test Strip QID Use 1 test strip to monitor blood glucose 4 times daily and as needed. Dx:E11.42. 06/23/19 23 023 Inactive ok to substitute with any covered alternative test strip dextromethorphan-gu aifenesin 10 mg-100 mg/5 mL oral liquid RxNorm: 897906 Take 10 Milliliter(s) Oral every 4 hours as needed for cough 06/19/19 23 023 Inactive dextromethorphan-gu aifenesin 10 mg-100 mg/5 mL oral liquid RxNorm: 235142 Take 10 Milliliter(s) Oral every 4 hours as needed for cough 06/19/19 023 Inactive Lyrica 150 mg capsule RxNorm: 127100 Take 1 Capsule(s) Oral QHS every night at bedtime 06/18/19 023 Inactive d/c 100mg dose aripiprazole 15 mg tablet RxNorm: 948031 1/2 TAB (7.5MG) ORALLY DAILY (DX:MAJOR DEPRESSIVE DISORDER) 06/05/19 023 Inactive pregabalin 100 mg capsule RxNorm: 123620 1 Capsule(s) Oral QAM every morning 06/02/19 023 Inactive Banophen 50 mg capsule RxNorm: 0540352 Take 1 Capsule(s) Oral Q6H every 6 hours as needed 05/19/19 23 No Stop Date Active Novolog Flexpen U-100 Insulin aspart 100 unit/mL (3 mL) subcutaneous RxNorm: 6672223 Inject 10 Unit(s) Subcutaneous QHS every night at bedtime with nighttime snack 04/08/20 022 Inactive Novolog Flexpen U-100 Insulin aspart 100 unit/mL (3 mL) subcutaneous RxNorm: 3393538 Inject 42 Unit(s) Subcutaneous TID in addition to sliding scale 04/08/20 022 Inactive d/c 36u albuterol sulfate HFA 90 mcg/actuation aerosol inhaler RxNorm: 2416958 Take 2 Puff(s) Inhalation Q4H every four hours as needed as needed for SOB, cough, or wheezing 04/07/20 030 Active Banophen 50 mg capsule RxNorm: 4161992 Take 1 Capsule(s) Oral Q6H every 6 hours as needed 04/06/20 023 Inactive diphenhydramine 50 mg tablet RxNorm: 1696187 Take 1 Tablet(s) Oral Q6H every 6 hours as needed 04/06/20 22 022 Inactive diphenhydramine 50 mg tablet RxNorm: 3003952 1 Tablet(s) Oral Q6H every 6 hours as needed 04/06/20 22 022 Inactive Abilify 15 mg tablet RxNorm: 613680 1/2 Tablet(s) Oral QD 03/10/20 023 Inactive Shingrix (PF) 50 mcg/0.5 mL intramuscular suspension, kit RxNorm: 9489020 Administer 1/2 Milliliter(s) Intramuscular QD one time shingrix step 2 ( step 1 given 11/04/21) WITH needle - Nursing please administer upon arrival and once administered post a bridge 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, 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, 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, and lot# so we can update [facility] 02/18/20 22 022 Inactive dispense with needle Shingrix (PF) 50 mcg/0.5 mL intramuscular suspension, kit RxNorm: 2151254 Administer 1/2 Milliliter(s) Intramuscular QD one time shingrix step 2 ( step 1 given 11/04/21) WITH needle - Nursing please administer upon arrival and once administered post a bridge message 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, 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, 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, and lot# so we can update [facility] 02/18/20 22 022 Inactive dispense with needle acetaminophen 500 mg tablet RxNorm: 751630 Take 1 Tablet(s) Oral TID 01/08/20 22 023 Active d/c PRN order polyethylene glycol 3350 17 gram/dose oral powder RxNorm: 527244 Take 17=1 capful Gram(s) Oral QD mix with 4-8oz of liquid 01/08/20 22 023 Active take this in addition to BID prn order Lyrica 100 mg capsule RxNorm: 928191 Take 1 Capsule(s) Oral QAM every morning 01/08/20 22 022 Inactive d/c 50mg dose Lyrica 150 mg capsule RxNorm: 114723 Take 1 Capsule(s) Oral QHS every night at bedtime 01/08/20 22 023 Inactive d/c 100mg dose Abilify 5 mg tablet RxNorm: 517965 Take 1 Tablet(s) Oral QD take 1 tab po QD #30 refill 5 dx: MDD 12/12/19 22 022 Inactive Abilify 5 mg tablet RxNorm: 418806 Take 1 Tablet(s) Oral QD take 1 tab po QD #30 refill 5 dx: MDD 12/12/19 22 022 Inactive Novolog Flexpen U-100 Insulin aspart 100 unit/mL (3 mL) subcutaneous RxNorm: 6191963 Inject 42 Unit(s) Subcutaneous TID in addition to sliding scale 12/10/19 22 022 Inactive d/c 36u chlorthalidone 25 mg tablet RxNorm: 352542 Take 1 Tablet(s) Oral QAM every morning 12/10/19 22 023 Inactive pregabalin 50 mg capsule RxNorm: 402597 Take 1 Capsule(s) Oral QAM every morning 11/12/19 22 022 Inactive tetanus-diphtheria toxoids-Td 2 Lf unit-2 Lf unit/0.5 mL IM suspension RxNorm: 139 Take 0.5 Miscellaneous Intramuscular 11/12/19 22 022 Inactive need tdap - nursing to administer upon arrival pregabalin 50 mg capsule RxNorm: 819966 Take 1 Capsule(s) Oral QAM every morning 10/16/19 22 022 Inactive pregabalin 50 mg capsule RxNorm: 208253 Take 1 Capsule(s) Oral QAM every morning 10/16/19 22 022 Inactive pregabalin 50 mg capsule RxNorm: 985992 1 Capsule(s) Oral QAM every morning 10/15/19 22 022 Inactive Shingrix (PF) 50 mcg/0.5 mL intramuscular suspension, kit RxNorm: 0313780 Administer 1/2 Milliliter(s) Intramuscular one time Nursing please administer upon arrival and once administered post a bridge message 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 10/09/19 22 Inactive shingrix step 1 cholecalciferol (vitamin D3) 1,250 mcg (50,000 unit) capsule RxNorm: 549639 Take 1 Capsule(s) Oral QW once a [...] aspart 100 unit/mL (3 mL) subcutaneous RxNorm: 4010048 Inject 10 Unit(s) Subcutaneous QHS every night at bedtime with nighttime snack 10/08/19 22 Inactive Shingrix (PF) 50 mcg/0.5 mL intramuscular suspension, kit RxNorm: 1773397 ADMINISTER 2-DOSE SERIES PER CDC GUIDELINES 10/08/19 22 022 Active Shingrix (PF) 50 mcg/0.5 mL intramuscular suspension, kit RxNorm: 8162535 ADMINISTER 2-DOSE SERIES PER CDC GUIDELINES 10/08/19 22 022 Inactive Novolog Flexpen U-100 Insulin aspart 100 unit/mL (3 mL) subcutaneous RxNorm: 1008447 Inject 36 Unit(s) Subcutaneous TID in addition to sliding scale 10/08/19 22 Inactive Novofine Autocover 30 gauge x 1/3 needle RxNorm: Use 1 Miscellaneous UD as directed Use 1 needle as directed to administer insulin 5 times a day Dx:E11.42. 10/03/19 22 Inactive ok to substitute with any covered alternative pen needle benzoyl peroxide 10 % topical cleanser RxNorm: 332989 Apply 1 Application Topical QD apply to face, wash rinse and dry once daily (may change to QOD if drying) 08/19/19 22 022 Inactive (%covered by insurance) #60ml refill 11 dx: acne benzoyl peroxide 10 % topical cleanser RxNorm: 461756 Apply 1 Application Topical QD apply to face, wash rinse and dry once daily (may change to QOD if drying) 08/19/19 22 022 Inactive (%covered by insurance) #60ml refill 11 dx: acne benzoyl peroxide 10 % topical cleanser RxNorm: 966347 Apply 1 Application Topical QD apply to face, wash rinse and dry once daily (may change to QOD if drying) 08/19/19 22 022 Inactive (%covered by insurance) #60ml refill 11 dx: acne Lyrica 50 mg capsule RxNorm: 743938 Take 1 Capsule(s) Oral QAM every morning Take 1 capsule by mouth once daily 08/19/19 022 Inactive benzoyl peroxide 10 % topical cleanser RxNorm: 724922 Apply 1 Application Topical QD apply to face, wash rinse and dry once daily (may change to QOD if drying) 08/19/19 22 022 Inactive (%covered by insurance) #60ml refill 11 dx: acne Lyrica 100 mg capsule RxNorm: 118220 Take 1 Capsule(s) Oral QHS every night at bedtime Take 1 capsule by mouth once daily at bedtime 08/19/19 22 022 Inactive Lyrica 100 mg capsule RxNorm: 652849 Take 1 Capsule(s) Oral QHS every night at bedtime Take 1 capsule by mouth once daily at bedtime 08/16/19 022 Inactive Lyrica 50 mg capsule RxNorm: 790444 Take 1 Capsule(s) Oral QAM every morning Take 1 capsule by mouth once daily 08/16/19 Inactive Levemir FlexTouch U-100 Insulin 100 unit/mL (3 mL) subcutaneous pen RxNorm: 483236 Inject 86 Unit(s) Subcutaneous BID 08/05/19 22 022 Inactive d/c 83units BID Lyrica 100 mg capsule RxNorm: 332273 Take 1 Capsule(s) Oral QHS every night at bedtime Take 1 capsule by mouth once daily at bedtime 07/14/19 22 Inactive Lyrica 50 mg capsule RxNorm: 292898 Take 1 Capsule(s) Oral QAM every morning Take 1 capsule by mouth once daily 07/14/19 22 Inactive Levemir FlexTouch U-100 Insulin 100 unit/mL (3 mL) subcutaneous pen RxNorm: 768114 Inject 83 Unit(s) Subcutaneous BID 07/08/19 22 [...] 30 mg tablet,extended release 24 hr RxNorm: 508001 Take 1 Tablet(s) Oral QD 05/05/20 No Stop Date Active hydralazine 50 mg tablet RxNorm: 340386 Take 1 Tablet(s) Oral QID 05/05/20 022 Inactive venlafaxine ER 225 mg tablet,extended release 24 hr RxNorm: 914579 Take 1 Tablet(s) Oral QD 05/05/20 Inactive venlafaxine ER 225 mg tablet,extended release 24 hr RxNorm: 125119 Take 1 Tablet(s) Oral QD 05/05/20 022 Inactive hydralazine 50 mg tablet RxNorm: 073228 Take 1 Tablet(s) Oral QID 05/05/20 Inactive aspirin 81 mg tablet,delayed release RxNorm: 366456 Take 1 Tablet(s) Oral QD 03/31/20 Inactive Zetia 10 mg tablet RxNorm: 025643 Take 1 Tablet(s) Oral QD 03/31/20 Inactive Vitamin D2 1,250 mcg (50,000 unit) capsule RxNorm: 8805966 Take 1 Capsule(s) Oral QW once a week x 12 weeks 03/31/20 022 Inactive Vitamin D2 1,250 mcg (50,000 unit) capsule RxNorm: 9430919 Take 1 Capsule(s) Oral QW once a week 03/31/20 Inactive Zetia 10 mg tablet RxNorm: 072147 Take 1 Tablet(s) Oral QD 03/31/20 Inactive hydralazine 25 mg tablet RxNorm: 695555 Take 1 Tablet(s) Oral QID 03/31/20 Inactive hydralazine 25 mg tablet RxNorm: 897517 Take 1 Tablet(s) Oral QID 03/31/20 021 Inactive hydralazine 10 mg tablet RxNorm: 901208 Take 1 Tablet(s) Oral QID 10/18/20 21 11/14/2 021 Inactive cephalexin 500 mg tablet RxNorm: 569421 Take 1 Tablet(s) Oral QID 02/27/20 21 021 Inactive cephalexin 500 mg tablet RxNorm: 574242 Take 1 Tablet(s) Oral QID 02/27/20 021 Inactive lisinopril 40 mg tablet RxNorm: 651287 Take 1 Tablet(s) Oral QD 02/11/20 023 Inactive Eliquis 5 mg tablet RxNorm: 6305816 Take 1 Tablet(s) Oral BID 01/05/20 21 022 Inactive Eliquis 5 mg tablet RxNorm: 8145149 Take 2 Tablet(s) Oral QD 01/01/20 21 021 Inactive Lyrica 50 mg capsule RxNorm: 393851 Take 1 Capsule(s) Oral QAM every morning 12/24/19 021 Inactive Lyrica 100 mg capsule RxNorm: 728010 Take 1 Capsule(s) Oral QHS every night at bedtime 12/24/19 021 Inactive clotrimazole 1 % topical cream RxNorm: 484913 Apply to right foot and toes Topical BID 12/04/19 21 023 Inactive metoprolol succinate ER 200 mg tablet,extended release 24 hr RxNorm: 178905 Take 1 Tablet(s) Oral QD 12/04/19 023 Inactive ciprofloxacin 500 mg tablet RxNorm: 869348 Take 1 Tablet(s) Oral QD 11/30/19 021 Inactive DX ofloxacin otic drops Accu-Chek Guide test strips RxNorm: USE 1 TO CHECK GLUCOSE 4 TIMES DAILY AND NEEDED 11/15/19 21 023 Inactive Blood Glucose Test strips RxNorm: Use 1 Test Strip QID at PRN 11/05/19 21 023 Inactive E11.42 lisinopril 30 mg tablet RxNorm: 429380 Take 1 Tablet(s) Oral QD 10/30/19 21 021 Inactive lisinopril 20 mg tablet RxNorm: 805647 Take 1 Tablet(s) Oral QD 10/23/19 21 021 Inactive lisinopril 20 mg tablet RxNorm: 347909 Take 1 Tablet(s) Oral QD 10/23/19 21 021 Inactive lisinopril 10 mg tablet RxNorm: 370433 Take 1 Tablet(s) Oral QD 10/02/19 21 021 Inactive icosapent ethyl 1 gram capsule RxNorm: 6313645 Take 2 Capsule(s) (2 gm) Oral BID with meals 09/12/19 022 Inactive Okay to dispense one 2gm tab if you have that available. icosapent ethyl 1 gram capsule RxNorm: 4694617 Take 2 Capsule(s) Oral BID 09/12/19 021 Inactive Okay to dispense one 2gm tab if you have that available. amlodipine 10 mg tablet RxNorm: 074136 Take 1 Tablet(s) Oral QD 09/04/19 022 Inactive aspirin 81 mg tablet,delayed release RxNorm: 429245 Take 1 Tablet(s) Oral QD 09/04/19 021 Inactive Levemir FlexTouch U-100 Insulin 100 unit/mL (3 mL) subcutaneous pen RxNorm: 638007 Inject 150 Unit(s) Subcutaneous BID 09/04/19 022 Inactive venlafaxine ER 150 mg tablet,extended release 24 hr RxNorm: 772704 Take 1 Tablet(s) Oral QD 09/04/19 021 Inactive clotrimazole-betame thasone 1 %-0.05 % topical cream RxNorm: 432885 Apply to rash on red area on left abdomen/chest Topical BID 08/10/19 21 021 Inactive amlodipine 5 mg tablet RxNorm: 196795 Take 1 Tablet(s) Oral QD 07/31/19 21 021 Inactive cephalexin 500 mg tablet RxNorm: 100991 Take 1 Tablet(s) Oral BID BID - Twice Daily 07/31/19 21 021 Inactive Start 08/01/20 pantoprazole 40 mg tablet,delayed release RxNorm: 282874 Take 1 Tablet(s) Oral QAM every morning 07/08/19 21 022 Inactive senna 8.6 mg tablet RxNorm: 966240 Take 1 Tablet(s) Oral QD 07/08/19 21 Inactive pravastatin 80 mg tablet RxNorm: 790276 Take 1 Tablet(s) Oral QHS every night at bedtime 07/08/19 21 Inactive carbamazepine 200 mg tablet RxNorm: 989558 Take 1 Tablet(s) Oral BID 07/08/19 21 Inactive clopidogrel 75 mg tablet RxNorm: 637983 Take 1 Tablet(s) Oral QD 07/08/19 21 Inactive Blood Glucose Test strips RxNorm: Use 1 Test Strip QID at PRN 07/08/19 21 Inactive E11.42 Novolog Flexpen U-100 Insulin aspart 100 unit/mL (3 mL) subcutaneous RxNorm: 9008861 Administer per sliding scale Milliliter(s) Subcutaneous TID 151-200: 10 u; 201-250: 20 u; 251-300: 30 u; 301-350: 40 u; 351-400: 50 u. 07/08/19 21 022 Inactive lisinopril 5 mg tablet RxNorm: 343883 Take 1 Tablet(s) Oral QD 07/08/19 Inactive Novolog Flexpen U-100 Insulin aspart 100 unit/mL (3 mL) subcutaneous RxNorm: 5876849 Inject 85 Unit(s) Subcutaneous TID 07/08/19 21 Inactive clotrimazole 1 % topical cream RxNorm: 833157 Apply to bilateral groin areas Topical BID 07/08/19 21 Inactive metoprolol succinate ER 200 mg tablet,extended release 24 hr RxNorm: 556598 Take 1 Tablet(s) Oral QD 07/08/19 21 Inactive Vitamin D3 25 mcg (1,000 unit) tablet RxNorm: 072857 Take 1 Tablet(s) Oral QD 07/08/19 21 Inactive isosorbide dinitrate 30 mg tablet RxNorm: 860022 Take 1 Tablet(s) Oral QD 07/08/19 21 Inactive Levemir FlexTouch U-100 Insulin 100 unit/mL (3 mL) subcutaneous pen RxNorm: 161937 Inject 140 Unit(s) Subcutaneous BID 07/08/19 21 021 Inactive torsemide 20 mg tablet RxNorm: 837667 Take 1 Tablet(s) Oral QD 07/08/19 21 023 Inactive venlafaxine 75 mg tablet RxNorm: 033903 Take 1 Tablet(s) Oral QD 07/08/19 21 021 Inactive acetaminophen 500 mg tablet RxNorm: 375611 Take 1 Tablet(s) Oral TID as needed for headache 06/18/19 21 021 Inactive acetaminophen 500 mg tablet RxNorm: 067102 Take 1 Tablet(s) Oral TID as needed for headache 06/18/19 21 021 Inactive Lyrica 100 mg capsule RxNorm: 480774 Take 1 Capsule(s) Oral QHS every night at bedtime 06/11/19 21 021 Inactive Lyrica 50 mg capsule RxNorm: 320320 Take 1 Capsule(s) Oral QAM every morning 06/10/19 21 021 Inactive hydrocortisone 2.5 % topical cream RxNorm: 849156 Apply to bilateral groin creases Topical BID 05/15/20 20 021 Inactive clotrimazole 1 % topical cream RxNorm: 567839 Apply to bilateral groin areas Topical BID 05/15/20 20 021 Inactive Lyrica 50 mg capsule RxNorm: 343790 Take 1 Capsule(s) Oral QAM every morning 05/14/20 20 020 Inactive Lyrica 100 mg capsule RxNorm: 995696 Take 1 Capsule(s) Oral QHS every night [...] Inactive Nystop 100,000 unit/gram topical powder RxNorm: 029517 Apply to abd folds, under breasts and L side of groin Topical BID x 14 days, then BID PRN 04/08/20 20 Inactive dx: yeast dermatitis Lyrica 100 mg capsule RxNorm: 324545 Take 1 Capsule(s) Oral QHS every night at bedtime 03/13/20 Inactive Lyrica 50 mg capsule RxNorm: 134591 Take 1 Capsule(s) Oral QAM every morning 03/13/20 20 Inactive ketoconazole 2 % shampoo RxNorm: 398603 Apply Topical two times a week with showers 03/11/20 20 Inactive cholecalciferol (vitamin D3) 50 mcg (2,000 unit) tablet RxNorm: 703944 Take 1 Tablet(s) Oral QD 03/11/20 20 Inactive Zetia 10 mg tablet RxNorm: 020170 Take 1 Tablet(s) Oral QD 03/07/20 20 021 Inactive Zetia 10 mg tablet RxNorm: 448190 Take 1 Tablet(s) Oral QD 03/07/20 20 Inactive Lyrica 50 mg capsule RxNorm: 287783 Take 1 Capsule(s) Oral QAM every morning 02/15/20 20 Inactive Lyrica 100 mg capsule RxNorm: 396646 Take 1 Capsule(s) Oral QHS every night at bedtime 02/15/20 20 Inactive Lyrica 100 mg capsule RxNorm: 825057 Take 1 Capsule(s) Oral QHS every night at bedtime 02/15/20 20 Inactive Lyrica 50 mg capsule RxNorm: 011828 Take 1 Capsule(s) Oral QAM every morning 02/15/20 20 020 Inactive venlafaxine ER 75 mg capsule,extended release 24 hr RxNorm: 477014 Take 3 Capsule(s) Oral QD 06/12/19 Active polyethylene glycol 3350 17 gram/dose oral powder RxNorm: 456800 Take 17=1 capful Gram(s) Oral BID as needed mix with 4-8oz of liquid 06/12/19 Active metoprolol succinate ER 200 mg tablet,extended release 24 hr RxNorm: 813423 Take 1 Tablet(s) Oral QD 08/12/19 23 Active loperamide 2 mg capsule RxNorm: 365168 Take 1 Capsule(s) Oral QID as needed 06/12/19 Active hydralazine 50 mg tablet RxNorm: 215712 Take 1 Tablet(s) Oral QID 08/12/19 23 Active icosapent ethyl 1 gram capsule RxNorm: 5541231 Take 2 Capsule(s) (2 gm) Oral BID with meals 10/07/19 23 023 Inactive Okay to dispense one 2gm tab if you have that available. Levemir FlexTouch U-100 Insulin 100 unit/mL (3 mL) subcutaneous pen RxNorm: 463499 Inject 80 Unit(s) Subcutaneous BID 07/14/19 23 023 Inactive Novolog Flexpen U-100 Insulin aspart 100 unit/mL (3 mL) subcutaneous RxNorm: 5590402 Insert 30 Unit(s) Subcutaneous TID with meals [...] [facility] WPtel: [address], [address] [id number] [place] Referral Records Received 09/21/2022 Referral: [facility] WPtel: [address] [id number] [place] Referral Completed 05/28/2021 Referral: General Cardiology [...] [facility] to have closer nursing attention. Sister Jyotsna involved in his care cell# [phone] Guardian: Don (tapan met in person 09/01/21), now has Lexii (same group as don)Lab Schedule: * 10/06/2022
--- OUTSIDE RECORDS SUMMARY | 2022-12-19 21:15 | XMS_ITS | CCD ---
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 Project Control Manager Name Role Phone Tapan Shirley PA-C Primary Care Provider Unavailabl e Tapan Shirley PA-C Chronic Care Management Unavaila ble Summary Purpose DataExchange Insurance Providers Payer name Policy type / Coverage type Covered alliance party ID Effective Begin Date Effective End Date [place] [id number] Unknown Unknown [place] [id number] Unknown Unknown Family history Sister Brittany Suggs Diagnosis Age At Onset No Family Disease Entered N/A Runs in the family Diagnosis Age At Onset No Known Diseases N/A Sister Blanka Mcduffie Diagnosis Age At Onset No Family Disease Entered N/A Social History Social History Element Codes Description Effec tive Dates Marital status Unknown Single 10/07/2021 Living arrangements Unknown Alf 09/03/[address]: 7137922 Non-Smoker / No History of Smoking 09/02/[address]: 126795071 No Alcohol Consum ption 09/02/2020 Allergies, Adverse Reactions, Alerts Substance Reaction Codes Entered Date Inactivated Date Status LISINOPRIL RxNorm: 46737 02/12/2020 No Inactive Da te Active Metformin HCl Unknown 02/12/2020 No Inactive Cristiano e Active Problems Condition Codes Effective Dates Condition St atus Coronary artery disease invo lving wiyot coronary artery of wiyot heart, angina presence unspecified ICD-10: I25.10 ICD-9: [...] immunization ICD-10: Z23 ICD-9: V03.89 02/10/2022 Resolved skilled nursing (current) use of insulin ICD-10: Z79.4 02/10 [...] Fill Instructions acetaminophen 500 mg tablet RxNorm: 286521 1 TABLET ORALLY 3 TIMES DAILY (MAX APAP:4GM/24HR) 12/15/19 23 024 Active potassium chloride ER 20 mEq tablet,extended release RxNorm: 987887 Take 1 Tablet(s) Oral BID 12/09/19 23 023 Active d/c 20mEq once daily (sent from hospital) clotrimazole 1 % topical cream RxNorm: 865096 apply 1g topically to top of feet and in between toes BID 12/09/19 23 023 Active nystatin 100,000 unit/gram topical powder RxNorm: 390034 APPLY TO AFFECTED AREAS TOPICALLY 2 TIMES DAILY 11/21/19 23 024 Active Nystop 100,000 unit/gram topical powder RxNorm: 443885 Apply to abd folds, under breasts and L side of groin Topical BID x 14 days, then BID PRN 11/20/19 023 Inactive dx: yeast dermatitis Bengay Ultra Strength 4 %-30 %-10 % topical cream RxNorm: 793276 Apply 1 Gram(s) Topical QID PRN to feet and legs for neuropathic pain 11/11/19 024 Active hydrocortisone 2.5 % topical cream RxNorm: 146571 Apply 1/2 Gram(s) Topical BID as needed 11/10/19 No Stop Date Active clotrimazole 1 % topical cream RxNorm: 551078 Apply 1/2 Gram(s) Topical BID Apply to affected areas of groin, periarea, and abdominal topically 2 times daily 11/10/19 023 Inactive Levemir FlexPen 100 unit/mL (3 mL) solution subcutaneous insulin pen RxNorm: 547829 Inject 30 Unit(s) Subcutaneous BID 10/07/19 024 Active Humulin R U-500 (Concentrated) Insulin 500 unit/mL subcutaneous soln RxNorm: 327287 Inject 100 Unit(s) Subcutaneous TID 10/07/19 024 Active Ozempic 0.25 mg or 0.5 mg (2 mg/3 mL) subcutaneous pen injector RxNorm: 1010157 Inject 1/2 Milligram(s) Subcutaneous QW once a week 10/07/19 024 Active aripiprazole 15 mg tablet RxNorm: 733893 1/2 TAB (7.5MG) ORALLY DAILY (DX:MAJOR DEPRESSIVE DISORDER) 09/23/19 023 Active Accu-Chek Guide test strips RxNorm: Use 1 Test Strip QID 09/15/19 23 024 Active ok to substitute with any covered alternative test strip Lancets,Thin 28 gauge RxNorm: Use 1 as directed QID 09/15/19 23 024 Active torsemide 20 mg tablet RxNorm: 973915 Take 1 Tablet(s) Oral BID 09/09/19 23 024 Active d/c once daily dosing carvedilol 25 mg tablet RxNorm: 190493 Take 1 Tablet(s) Oral QD 08/25/19 23 024 Active pregabalin 150 mg capsule RxNorm: 151418 1 Capsule(s) Oral HS at bed time 08/18/19 23 023 Active pregabalin 100 mg capsule RxNorm: 394147 1 Capsule(s) Oral QAM every morning 08/18/19 23 023 Active carvedilol 25 mg tablet RxNorm: 268762 1 Tablet(s) Oral QD 07/28/19 23 023 Inactive lisinopril 20 mg tablet RxNorm: 008573 Give 1 Tablet(s) Oral QD 07/28/19 23 023 Inactive Lyrica 150 mg capsule RxNorm: 696141 Take 1 Capsule(s) Oral QHS every night at bedtime 07/19/19 23 023 Inactive d/c 100mg dose Diflucan 150 mg tablet RxNorm: 183183 Take 1 Tablet(s) Oral QD repeat on day 3 and 6 07/19/19 23 023 Inactive pregabalin 100 mg capsule RxNorm: 561589 Take 1 Capsule(s) Oral QAM every morning 07/19/19 23 023 Inactive gatifloxacin 0.5 % eye drops RxNorm: 904557 Instill 1 Drop(s) as directed TID Instill 1 drop in to affected eye(s) starting 1 day prior to surgery and continue until gone (do not exceed 4 weeks). 07/13/19 23 023 Inactive carvedilol 25 mg tablet RxNorm: 413337 2 Tablet(s) Oral BID 07/13/19 23 023 Inactive Humulin R Regular U-100 Insulin 100 unit/mL injection solution RxNorm: 519636 85 Unit(s) Injection TID 07/13/19 23 023 Inactive ketorolac 0.5 % eye drops RxNorm: 741188 Instill 1 Drop(s) as directed QID Instill 1 drop into affected eye(s) 4 times daily starting 1 day prior to surgery and continue until gone (do not exceed 4 weeks). 07/13/19 23 023 Inactive Diflucan 150 mg tablet RxNorm: 717052 Take 1 Tablet(s) Oral QD repeat on day 3 and 6 06/30/19 23 023 Inactive Accu-Chek Guide test strips RxNorm: Use 1 Test Strip QID Use 1 test strip to monitor blood glucose 4 times daily and as needed. Dx:E11.42. 06/23/19 23 023 Inactive ok to substitute with any covered alternative test strip dextromethorphan-gu aifenesin 10 mg-100 mg/5 mL oral liquid RxNorm: 522564 Take 10 Milliliter(s) Oral every 4 hours as needed for cough 06/19/19 023 Inactive dextromethorphan-gu aifenesin 10 mg-100 mg/5 mL oral liquid RxNorm: 718554 Take 10 Milliliter(s) Oral every 4 hours as needed for cough 06/19/19 23 023 Inactive Lyrica 150 mg capsule RxNorm: 792505 Take 1 Capsule(s) Oral QHS every night at bedtime 06/18/19 23 023 Inactive d/c 100mg dose aripiprazole 15 mg tablet RxNorm: 040465 1/2 TAB (7.5MG) ORALLY DAILY (DX:MAJOR DEPRESSIVE DISORDER) 06/05/19 23 023 Inactive pregabalin 100 mg capsule RxNorm: 497059 1 Capsule(s) Oral QAM every morning 06/02/19 23 023 Inactive Banophen 50 mg capsule RxNorm: 0624765 Take 1 Capsule(s) Oral Q6H every 6 hours as needed 05/19/19 23 No Stop Date Active Novolog Flexpen U-100 Insulin aspart 100 unit/mL (3 mL) subcutaneous RxNorm: 4348454 Inject 10 Unit(s) Subcutaneous QHS every night at bedtime with nighttime snack 04/08/20 22 022 Inactive Novolog Flexpen U-100 Insulin aspart 100 unit/mL (3 mL) subcutaneous RxNorm: 8501788 Inject 42 Unit(s) Subcutaneous TID in addition to sliding scale 04/08/20 022 Inactive d/c 36u albuterol sulfate HFA 90 mcg/actuation aerosol inhaler RxNorm: 7774838 Take 2 Puff(s) Inhalation Q4H every four hours as needed as needed for SOB, cough, or wheezing 04/07/20 030 Active Banophen 50 mg capsule RxNorm: 4896485 Take 1 Capsule(s) Oral Q6H every 6 hours as needed 04/06/20 023 Inactive diphenhydramine 50 mg tablet RxNorm: 7749218 Take 1 Tablet(s) Oral Q6H every 6 hours as needed 04/06/20 022 Inactive diphenhydramine 50 mg tablet RxNorm: 8597260 1 Tablet(s) Oral Q6H every 6 hours as needed 04/06/20 022 Inactive Abilify 15 mg tablet RxNorm: 209493 1/2 Tablet(s) Oral QD 03/10/20 023 Inactive Shingrix (PF) 50 mcg/0.5 mL intramuscular suspension, kit RxNorm: 4230942 Administer 1/2 Milliliter(s) Intramuscular QD one time shingrix step 2 ( step 1 given 11/04/21) WITH needle - Nursing please administer upon arrival and once administered post a bridge message with date of administration, security assurance specialist, expiration date, and lot# so we can update [facility] 02/18/20 22 022 Inactive dispense with needle Shingrix (PF) 50 mcg/0.5 mL intramuscular suspension, kit RxNorm: 2990874 Administer 1/2 Milliliter(s) Intramuscular QD one time shingrix step 2 ( step 1 given 11/04/21) WITH needle - Nursing please administer upon arrival and once administered post a bridge message with date of administration, security assurance specialist, expiration date, and lot# so we can update [facility] 02/18/20 22 022 Inactive dispense with needle polyethylene glycol 3350 17 gram/dose oral powder RxNorm: 866155 Take 17=1 capful Gram(s) Oral QD mix with 4-8oz of liquid 01/08/20 22 023 Active take this in addition to BID prn order Lyrica 100 mg capsule RxNorm: 587213 Take 1 Capsule(s) Oral QAM every morning 01/08/20 22 022 Inactive d/c 50mg dose acetaminophen 500 mg tablet RxNorm: 794124 Take 1 Tablet(s) Oral TID 01/08/20 22 022 Inactive d/c PRN order Lyrica 150 mg capsule RxNorm: 476837 Take 1 Capsule(s) Oral QHS every night at bedtime 01/08/20 023 Inactive d/c 100mg dose Abilify 5 mg tablet RxNorm: 114449 Take 1 Tablet(s) Oral QD take 1 tab po QD #30 refill 5 dx: MDD 12/12/19 22 022 Inactive Abilify 5 mg tablet RxNorm: 933271 Take 1 Tablet(s) Oral QD take 1 tab po QD #30 refill 5 dx: MDD 12/12/19 22 022 Inactive Novolog Flexpen U-100 Insulin aspart 100 unit/mL (3 mL) subcutaneous RxNorm: 3380174 Inject 42 Unit(s) Subcutaneous TID in addition to sliding scale 12/10/19 022 Inactive d/c 36u chlorthalidone 25 mg tablet RxNorm: 289466 Take 1 Tablet(s) Oral QAM every morning 12/10/19 023 Inactive pregabalin 50 mg capsule RxNorm: 957838 Take 1 Capsule(s) Oral QAM every morning 11/12/19 022 Inactive tetanus-diphtheria toxoids-Td 2 Lf unit-2 Lf unit/0.5 mL IM suspension RxNorm: 139 Take 0.5 Miscellaneous Intramuscular 11/12/19 022 Inactive need tdap - nursing to administer upon arrival pregabalin 50 mg capsule RxNorm: 808808 Take 1 Capsule(s) Oral QAM every morning 10/16/19 22 022 Inactive pregabalin 50 mg capsule RxNorm: 180040 Take 1 Capsule(s) Oral QAM every morning 10/16/19 22 022 Inactive pregabalin 50 mg capsule RxNorm: 894320 1 Capsule(s) Oral QAM every morning 10/15/19 22 022 Inactive Shingrix (PF) 50 mcg/0.5 mL intramuscular suspension, kit RxNorm: 6370643 Administer 1/2 Milliliter(s) Intramuscular one time Nursing please administer upon arrival and once administered post a bridge message with date of administration, security assurance specialist, expiration date, and lot# so we can update [facility]. 10/09/19 22 022 Inactive shingrix step 1 Shingrix (PF) 50 mcg/0.5 mL intramuscular suspension, kit RxNorm: 0039210 Administer 1/2 Milliliter(s) Intramuscular one time Nursing please administer upon arrival and once administered post a bridge message with date of administration, security assurance specialist, expiration date, and lot# so we can update [facility]. 10/09/19 22 022 Inactive shingrix step 1 cholecalciferol (vitamin D3) 1,250 mcg (50,000 unit) capsule RxNorm: 291682 Take 1 Capsule(s) Oral QW once a [...] aspart 100 unit/mL (3 mL) subcutaneous RxNorm: 0155396 Inject 10 Unit(s) Subcutaneous QHS every night at bedtime with nighttime snack 10/08/19 22 Inactive Shingrix (PF) 50 mcg/0.5 mL intramuscular suspension, kit RxNorm: 2819930 ADMINISTER 2-DOSE SERIES PER CDC GUIDELINES 10/08/19 22 022 Active Shingrix (PF) 50 mcg/0.5 mL intramuscular suspension, kit RxNorm: 6322273 ADMINISTER 2-DOSE SERIES PER CDC GUIDELINES 10/08/19 22 Inactive Novolog Flexpen U-100 Insulin aspart 100 unit/mL (3 mL) subcutaneous RxNorm: 9111947 Inject 36 Unit(s) Subcutaneous TID in addition to sliding scale 10/08/19 Inactive Novofine Autocover 30 gauge x 1/3 needle RxNorm: Use 1 Miscellaneous UD as directed Use 1 needle as directed to administer insulin 5 times a day Dx:E11.42. 10/03/19 Inactive ok to substitute with any covered alternative pen needle benzoyl peroxide 10 % topical cleanser RxNorm: 929673 Apply 1 Application Topical QD apply to face, wash rinse and dry once daily (may change to QOD if drying) 08/19/19 022 Inactive (%covered by insurance) #60ml refill 11 dx: acne benzoyl peroxide 10 % topical cleanser RxNorm: 120367 Apply 1 Application Topical QD apply to face, wash rinse and dry once daily (may change to QOD if drying) 08/19/19 022 Inactive (%covered by insurance) #60ml refill 11 dx: acne benzoyl peroxide 10 % topical cleanser RxNorm: 587035 Apply 1 Application Topical QD apply to face, wash rinse and dry once daily (may change to QOD if drying) 08/19/19 022 Inactive (%covered by insurance) #60ml refill 11 dx: acne Lyrica 50 mg capsule RxNorm: 606217 Take 1 Capsule(s) Oral QAM every morning Take 1 capsule by mouth once daily 08/19/19 22 022 Inactive benzoyl peroxide 10 % topical cleanser RxNorm: 319715 Apply 1 Application Topical QD apply to face, wash rinse and dry once daily (may change to QOD if drying) 08/19/19 22 022 Inactive (%covered by insurance) #60ml refill 11 dx: acne Lyrica 100 mg capsule RxNorm: 956662 Take 1 Capsule(s) Oral QHS every night at bedtime Take 1 capsule by mouth once daily at bedtime 08/19/19 22 022 Inactive Lyrica 100 mg capsule RxNorm: 810254 Take 1 Capsule(s) Oral QHS every night at bedtime Take 1 capsule by mouth once daily at bedtime 08/16/19 22 022 Inactive Lyrica 50 mg capsule RxNorm: 363066 Take 1 Capsule(s) Oral QAM every morning Take 1 capsule by mouth once daily 08/16/19 22 022 Inactive Levemir FlexTouch U-100 Insulin 100 unit/mL (3 mL) subcutaneous pen RxNorm: 200663 Inject 86 Unit(s) Subcutaneous BID 08/05/19 22 022 Inactive d/c 83units BID Lyrica 100 mg capsule RxNorm: 447553 Take 1 Capsule(s) Oral QHS every night at bedtime Take 1 capsule by mouth once daily at bedtime 07/14/19 22 022 Inactive Lyrica 50 mg capsule RxNorm: 190712 Take 1 Capsule(s) Oral QAM every morning Take 1 capsule by mouth once daily 07/14/19 22 022 Inactive Levemir FlexTouch U-100 Insulin 100 unit/mL (3 mL) subcutaneous pen RxNorm: 074399 Inject 83 Unit(s) Subcutaneous BID 07/08/19 22 [...] 30 mg tablet,extended release 24 hr RxNorm: 117256 Take 1 Tablet(s) Oral QD 05/05/20 No Stop Date Active hydralazine 50 mg tablet RxNorm: 746018 Take 1 Tablet(s) Oral QID 05/05/20 21 022 Inactive venlafaxine ER 225 mg tablet,extended release 24 hr RxNorm: 099487 Take 1 Tablet(s) Oral QD 05/05/20 21 021 Inactive venlafaxine ER 225 mg tablet,extended release 24 hr RxNorm: 818296 Take 1 Tablet(s) Oral QD 05/05/20 21 022 Inactive hydralazine 50 mg tablet RxNorm: 750816 Take 1 Tablet(s) Oral QID 05/05/20 21 021 Inactive aspirin 81 mg tablet,delayed release RxNorm: 853442 Take 1 Tablet(s) Oral QD 03/31/20 21 022 Inactive Zetia 10 mg tablet RxNorm: 316091 Take 1 Tablet(s) Oral QD 03/31/20 21 022 Inactive Vitamin D2 1,250 mcg (50,000 unit) capsule RxNorm: 1147216 Take 1 Capsule(s) Oral QW once a week x 12 weeks 03/31/20 21 022 Inactive Vitamin D2 1,250 mcg (50,000 unit) capsule RxNorm: 9813990 Take 1 Capsule(s) Oral QW once a week 03/31/20 021 Inactive Zetia 10 mg tablet RxNorm: 174744 Take 1 Tablet(s) Oral QD 03/31/20 Inactive hydralazine 25 mg tablet RxNorm: 169838 Take 1 Tablet(s) Oral QID 03/31/20 021 Inactive hydralazine 25 mg tablet RxNorm: 734174 Take 1 Tablet(s) Oral QID 03/31/20 021 Inactive hydralazine 10 mg tablet RxNorm: 115122 Take 1 Tablet(s) Oral QID 03/03/20 021 Inactive cephalexin 500 mg tablet RxNorm: 095036 Take 1 Tablet(s) Oral QID 02/27/20 021 Inactive cephalexin 500 mg tablet RxNorm: 946178 Take 1 Tablet(s) Oral QID 02/27/20 021 Inactive lisinopril 40 mg tablet RxNorm: 458101 Take 1 Tablet(s) Oral QD 02/11/20 023 Inactive Eliquis 5 mg tablet RxNorm: 2573115 Take 1 Tablet(s) Oral BID 01/05/20 022 Inactive Eliquis 5 mg tablet RxNorm: 0753672 Take 2 Tablet(s) Oral QD 01/01/20 021 Inactive Lyrica 50 mg capsule RxNorm: 680278 Take 1 Capsule(s) Oral QAM every morning 12/24/19 21 021 Inactive Lyrica 100 mg capsule RxNorm: 244377 Take 1 Capsule(s) Oral QHS every night at bedtime 12/24/19 021 Inactive clotrimazole 1 % topical cream RxNorm: 825801 Apply to right foot and toes Topical BID 12/04/19 21 023 Inactive metoprolol succinate ER 200 mg tablet,extended release 24 hr RxNorm: 288570 Take 1 Tablet(s) Oral QD 12/04/19 21 023 Inactive ciprofloxacin 500 mg tablet RxNorm: 708945 Take 1 Tablet(s) Oral QD 11/30/19 021 Inactive DX ofloxacin otic drops Accu-Chek Guide test strips RxNorm: USE 1 TO CHECK GLUCOSE 4 TIMES DAILY AND NEEDED 11/15/19 21 023 Inactive Blood Glucose Test strips RxNorm: Use 1 Test Strip QID at PRN 11/05/19 21 023 Inactive E11.42 lisinopril 30 mg tablet RxNorm: 230376 Take 1 Tablet(s) Oral QD 10/30/19 021 Inactive lisinopril 20 mg tablet RxNorm: 982896 Take 1 Tablet(s) Oral QD 10/23/19 021 Inactive lisinopril 20 mg tablet RxNorm: 193789 Take 1 Tablet(s) Oral QD 10/23/19 021 Inactive lisinopril 10 mg tablet RxNorm: 478540 Take 1 Tablet(s) Oral QD 10/02/19 021 Inactive icosapent ethyl 1 gram capsule RxNorm: 2790231 Take 2 Capsule(s) (2 gm) Oral BID with meals 09/12/19 022 Inactive Okay to dispense one 2gm tab if you have that available. icosapent ethyl 1 gram capsule RxNorm: 0332674 Take 2 Capsule(s) Oral BID 09/12/19 021 Inactive Okay to dispense one 2gm tab if you have that available. amlodipine 10 mg tablet RxNorm: 929031 Take 1 Tablet(s) Oral QD 09/04/19 022 Inactive aspirin 81 mg tablet,delayed release RxNorm: 033747 Take 1 Tablet(s) Oral QD 09/04/19 021 Inactive Levemir FlexTouch U-100 Insulin 100 unit/mL (3 mL) subcutaneous pen RxNorm: 620455 Inject 150 Unit(s) Subcutaneous BID 09/04/19 21 022 Inactive venlafaxine ER 150 mg tablet,extended release 24 hr RxNorm: 919287 Take 1 Tablet(s) Oral QD 09/04/19 21 021 Inactive clotrimazole-betame thasone 1 %-0.05 % topical cream RxNorm: 841842 Apply to rash on red area on left abdomen/chest Topical BID 08/10/19 Inactive amlodipine 5 mg tablet RxNorm: 033336 Take 1 Tablet(s) Oral QD 07/31/19 Inactive cephalexin 500 mg tablet RxNorm: 035311 Take 1 Tablet(s) Oral BID BID - Twice Daily 07/31/19 Inactive Start 08/01/20 pantoprazole 40 mg tablet,delayed release RxNorm: 853049 Take 1 Tablet(s) Oral QAM every morning 07/08/19 Inactive senna 8.6 mg tablet RxNorm: 366788 Take 1 Tablet(s) Oral QD 07/08/19 Inactive pravastatin 80 mg tablet RxNorm: 959808 Take 1 Tablet(s) Oral QHS every night at bedtime 07/08/19 Inactive carbamazepine 200 mg tablet RxNorm: 463093 Take 1 Tablet(s) Oral BID 07/08/19 022 Inactive clopidogrel 75 mg tablet RxNorm: 909078 Take 1 Tablet(s) Oral QD 07/08/19 Inactive Blood Glucose Test strips RxNorm: Use 1 Test Strip QID at PRN 07/08/19 Inactive E11.42 Novolog Flexpen U-100 Insulin aspart 100 unit/mL (3 mL) subcutaneous RxNorm: 9196237 Administer per sliding scale Milliliter(s) Subcutaneous TID 151-200: 10 u; 201-250: 20 u; 251-300: 30 u; 301-350: 40 u; 351-400: 50 u. 07/08/19 Inactive lisinopril 5 mg tablet RxNorm: 198967 Take 1 Tablet(s) Oral QD 07/08/19 Inactive Novolog Flexpen U-100 Insulin aspart 100 unit/mL (3 mL) subcutaneous RxNorm: 3231242 Inject 85 Unit(s) Subcutaneous TID 07/08/19 022 Inactive clotrimazole 1 % topical cream RxNorm: 816621 Apply to bilateral groin areas Topical BID 07/08/19 21 022 Inactive metoprolol succinate ER 200 mg tablet,extended release 24 hr RxNorm: 039057 Take 1 Tablet(s) Oral QD 07/08/19 21 021 Inactive Vitamin D3 25 mcg (1,000 unit) tablet RxNorm: 831604 Take 1 Tablet(s) Oral QD 07/08/19 021 Inactive isosorbide dinitrate 30 mg tablet RxNorm: 856103 Take 1 Tablet(s) Oral QD 07/08/19 021 Inactive Levemir FlexTouch U-100 Insulin 100 unit/mL (3 mL) subcutaneous pen RxNorm: 404850 Inject 140 Unit(s) Subcutaneous BID 07/08/19 021 Inactive torsemide 20 mg tablet RxNorm: 639846 Take 1 Tablet(s) Oral QD 07/08/19 023 Inactive venlafaxine 75 mg tablet RxNorm: 511791 Take 1 Tablet(s) Oral QD 07/08/19 021 Inactive acetaminophen 500 mg tablet RxNorm: 932680 Take 1 Tablet(s) Oral TID as needed for headache 06/18/19 021 Inactive acetaminophen 500 mg tablet RxNorm: 071967 Take 1 Tablet(s) Oral TID as needed for headache 06/18/19 021 Inactive Lyrica 100 mg capsule RxNorm: 665442 Take 1 Capsule(s) Oral QHS every night at bedtime 06/11/19 021 Inactive Lyrica 50 mg capsule RxNorm: 457685 Take 1 Capsule(s) Oral QAM every morning 06/10/19 21 021 Inactive hydrocortisone 2.5 % topical cream RxNorm: 886422 Apply to bilateral groin creases Topical BID 05/15/20 20 021 Inactive clotrimazole 1 % topical cream RxNorm: 979003 Apply to bilateral groin areas Topical BID 05/15/20 20 021 Inactive Lyrica 50 mg capsule RxNorm: 136190 Take 1 Capsule(s) Oral QAM every morning 05/14/20 20 Inactive Lyrica 100 mg capsule RxNorm: 442678 Take 1 Capsule(s) Oral QHS every night [...] Inactive Nystop 100,000 unit/gram topical powder RxNorm: 078045 Apply to abd folds, under breasts and L side of groin Topical BID x 14 days, then BID PRN 04/08/20 20 Inactive dx: yeast dermatitis Lyrica 100 mg capsule RxNorm: 762064 Take 1 Capsule(s) Oral QHS every night at bedtime 03/13/20 20 Inactive Lyrica 50 mg capsule RxNorm: 679808 Take 1 Capsule(s) Oral QAM every morning 03/13/20 20 Inactive ketoconazole 2 % shampoo RxNorm: 081297 Apply Topical two times a week with showers 03/11/20 20 Inactive cholecalciferol (vitamin D3) 50 mcg (2,000 unit) tablet RxNorm: 364585 Take 1 Tablet(s) Oral QD 03/11/20 20 Inactive Zetia 10 mg tablet RxNorm: 450142 Take 1 Tablet(s) Oral QD 03/07/20 20 021 Inactive Zetia 10 mg tablet RxNorm: 510801 Take 1 Tablet(s) Oral QD 03/07/20 20 Inactive Lyrica 50 mg capsule RxNorm: 702338 Take 1 Capsule(s) Oral QAM every morning 02/15/20 20 Inactive Lyrica 100 mg capsule RxNorm: 140774 Take 1 Capsule(s) Oral QHS every night at bedtime 02/15/20 20 Inactive Lyrica 100 mg capsule RxNorm: 896354 Take 1 Capsule(s) Oral QHS every night at bedtime 02/15/20 20 Inactive Lyrica 50 mg capsule RxNorm: 029608 Take 1 Capsule(s) Oral QAM every morning 02/15/20 20 Inactive venlafaxine ER 75 mg capsule,extended release 24 hr RxNorm: 784490 Take 3 Capsule(s) Oral QD 06/12/19 22 Active polyethylene glycol 3350 17 gram/dose oral powder RxNorm: 490555 Take 17=1 capful Gram(s) Oral BID as needed mix with 4-8oz of liquid 06/12/19 22 Active metoprolol succinate ER 200 mg tablet,extended release 24 hr RxNorm: 204790 Take 1 Tablet(s) Oral QD 08/12/19 23 Active loperamide 2 mg capsule RxNorm: 371024 Take 1 Capsule(s) Oral QID as needed 06/12/19 22 Active hydralazine 50 mg tablet RxNorm: 590707 Take 1 Tablet(s) Oral QID 08/12/19 23 Active icosapent ethyl 1 gram capsule RxNorm: 1785715 Take 2 Capsule(s) (2 gm) Oral BID with meals 10/07/19 23 023 Inactive Okay to dispense one 2gm tab if you have that available. Levemir FlexTouch U-100 Insulin 100 unit/mL (3 mL) subcutaneous pen RxNorm: 087206 Inject 80 Unit(s) Subcutaneous BID 07/14/19 23 023 Inactive Novolog Flexpen U-100 Insulin aspart 100 unit/mL (3 mL) subcutaneous RxNorm: 2970601 Insert 30 Unit(s) Subcutaneous TID with meals 05/24 022 Inactive Medication Administered No Medication Administered [...] [facility] WPtel: [phone] [id number] [place] Referral Records Received 09/21/2022 Referral: [facility] WPtel: [address] [id number] [place] Referral Completed 05/28/2021 Referral: General Cardiology [...] [facility]. Sister Jyotsna involved in his care cell# [phone] Guardian: Don (tapan met in person 09/01/21), now has Lexii (same group as don)Lab Schedule: * 10/06/2022
--- OUTSIDE RECORDS SUMMARY | 2023-01-28 19:00 | XMS_ITS | CCD ---
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 Name Role Phone Chelo Fonseca PA-C Primary Care Provider Unavaila ble Chelo Fonseca PA-C Chronic Care Management Nicole archer Summary Purpose DataExchange Insurance Providers Payer name Policy type / Coverage type Covered alliance party ID Effective Begin Date Effective End Date Medicare [place] Medicare Part B [id number] Unknown Unknown Medicaid [place] Medicare Part B [id number] Unknown Unknown Family history Sister Brittany Suggs [...] Snf 09/03/[address]: 0713055 Non-Smoker / No History of Smoking 09/02/[address]: [id number] No Alcohol Consum ption 09/02/2020 Allergies, Adverse Reactions, Alerts Substance Reaction Codes Entered Date Inactivated Date Status LISINOPRIL RxNorm: 26856 02/12/2020 No Inactive Da te Active Metformin HCl Unknown 02/12/2020 No Inactive Cristiano e Active Problems Condition Codes Effective Dates Condition St atus Coronary artery disease invo lving [place] coronary artery of [place] heart, angina presence unspecified ICD-10: I25.10 ICD-9: [...] Fill Instructions acetaminophen 500 mg tablet RxNorm: 405169 1 TABLET ORALLY 3 TIMES DAILY (MAX APAP:4GM/24HR) 12/15/19 23 024 Active potassium chloride ER 20 mEq tablet,extended release RxNorm: 608348 Take 1 Tablet(s) Oral BID 12/09/19 23 023 Active d/c 20mEq once daily (sent from hospital) clotrimazole 1 % topical cream RxNorm: 511083 apply 1g topically to top of feet and in between toes BID 12/09/19 23 023 Active nystatin 100,000 unit/gram topical powder RxNorm: 820692 APPLY TO AFFECTED AREAS TOPICALLY 2 TIMES DAILY 11/21/19 024 Active Nystop 100,000 unit/gram topical powder RxNorm: 820587 Apply to abd folds, under breasts and L side of groin Topical BID x 14 days, then BID PRN 11/20/19 023 Inactive dx: yeast dermatitis [place] Ultra Strength 4 %-30 %-10 % topical cream RxNorm: 910023 Apply 1 Gram(s) Topical QID PRN to feet and legs for neuropathic pain 11/11/19 024 Active hydrocortisone 2.5 % topical cream RxNorm: 533652 Apply 1/2 Gram(s) Topical BID as needed 11/10/19 No Stop Date Active clotrimazole 1 % topical cream RxNorm: 517889 Apply 1/2 Gram(s) Topical BID Apply to affected areas of groin, periarea, and abdominal topically 2 times daily 11/10/19 023 Inactive Levemir FlexPen 100 unit/mL (3 mL) solution subcutaneous insulin pen RxNorm: 264074 Inject 30 Unit(s) Subcutaneous BID 10/07/19 024 Active Humulin R U-500 (Concentrated) Insulin 500 unit/mL subcutaneous soln RxNorm: 937075 Inject 100 Unit(s) Subcutaneous TID 10/07/19 024 Active Ozempic 0.25 mg or 0.5 mg (2 mg/3 mL) subcutaneous pen injector RxNorm: 4533531 Inject 1/2 Milligram(s) Subcutaneous QW once a week 10/07/19 024 Active aripiprazole 15 mg tablet RxNorm: 826142 1/2 TAB (7.5MG) ORALLY DAILY (DX:MAJOR DEPRESSIVE DISORDER) 09/23/19 023 Active Accu-Chek Guide test strips RxNorm: Use 1 Test Strip QID 09/15/19 024 Active ok to substitute with any covered alternative test strip Lancets,Thin 28 gauge RxNorm: Use 1 as directed QID 09/15/19 23 024 Active torsemide 20 mg tablet RxNorm: 781334 Take 1 Tablet(s) Oral BID 09/09/19 23 024 Active d/c once daily dosing carvedilol 25 mg tablet RxNorm: 521737 Take 1 Tablet(s) Oral QD 08/25/19 024 Active pregabalin 150 mg capsule RxNorm: 722824 1 Capsule(s) Oral HS at bed time 08/18/19 23 023 Active pregabalin 100 mg capsule RxNorm: 169242 1 Capsule(s) Oral QAM every morning 08/18/19 23 023 Active carvedilol 25 mg tablet RxNorm: 569164 1 Tablet(s) Oral QD 07/28/19 23 023 Inactive lisinopril 20 mg tablet RxNorm: 253402 Give 1 Tablet(s) Oral QD 07/28/19 23 023 Inactive Lyrica 150 mg capsule RxNorm: 096705 Take 1 Capsule(s) Oral QHS every night at bedtime 07/19/19 23 023 Inactive d/c 100mg dose Diflucan 150 mg tablet RxNorm: 313141 Take 1 Tablet(s) Oral QD repeat on day 3 and 6 07/19/19 23 023 Inactive pregabalin 100 mg capsule RxNorm: 473063 Take 1 Capsule(s) Oral QAM every morning 07/19/19 23 023 Inactive gatifloxacin 0.5 % eye drops RxNorm: 024216 Instill 1 Drop(s) as directed TID Instill 1 drop in to affected eye(s) starting 1 day prior to surgery and continue until gone (do not exceed 4 weeks). 07/13/19 23 023 Inactive carvedilol 25 mg tablet RxNorm: 581898 2 Tablet(s) Oral BID 07/13/19 23 023 Inactive Humulin R Regular U-100 Insulin 100 unit/mL injection solution RxNorm: 328910 85 Unit(s) Injection TID 07/13/19 23 023 Inactive ketorolac 0.5 % eye drops RxNorm: 968563 Instill 1 Drop(s) as directed QID Instill 1 drop into affected eye(s) 4 times daily starting 1 day prior to surgery and continue until gone (do not exceed 4 weeks). 07/13/19 23 023 Inactive Diflucan 150 mg tablet RxNorm: 873130 Take 1 Tablet(s) Oral QD repeat on day 3 and 6 06/30/19 23 023 Inactive Accu-Chek Guide test strips RxNorm: Use 1 Test Strip QID Use 1 test strip to monitor blood glucose 4 times daily and as needed. Dx:E11.42. 06/23/19 023 Inactive ok to substitute with any covered alternative test strip dextromethorphan-gu aifenesin 10 mg-100 mg/5 mL oral liquid RxNorm: 201212 Take 10 Milliliter(s) Oral every 4 hours as needed for cough 06/19/19 23 023 Inactive dextromethorphan-gu aifenesin 10 mg-100 mg/5 mL oral liquid RxNorm: 812987 Take 10 Milliliter(s) Oral every 4 hours as needed for cough 06/19/19 23 023 Inactive Lyrica 150 mg capsule RxNorm: 322687 Take 1 Capsule(s) Oral QHS every night at bedtime 06/18/19 23 023 Inactive d/c 100mg dose aripiprazole 15 mg tablet RxNorm: 064023 /2 TAB (7.5MG) ORALLY DAILY (DX:MAJOR DEPRESSIVE DISORDER) 06/05/19 23 023 Inactive pregabalin 100 mg capsule RxNorm: 929650 1 Capsule(s) Oral QAM every morning 06/02/19 23 023 Inactive Banophen 50 mg capsule RxNorm: 7614054 Take 1 Capsule(s) Oral Q6H every 6 hours as needed 05/19/19 23 No Stop Date Active Novolog Flexpen U-100 Insulin aspart 100 unit/mL (3 mL) subcutaneous RxNorm: 0471386 Inject 10 Unit(s) Subcutaneous QHS every night at bedtime with nighttime snack 04/08/20 Inactive Novolog Flexpen U-100 Insulin aspart 100 unit/mL (3 mL) subcutaneous RxNorm: 1816140 Inject 42 Unit(s) Subcutaneous TID in addition to sliding scale 04/08/20 Inactive d/c 36u albuterol sulfate HFA 90 mcg/actuation aerosol inhaler RxNorm: 9485152 Take 2 Puff(s) Inhalation Q4H every four hours as needed as needed for SOB, cough, or wheezing 04/07/20 030 Active Banophen 50 mg capsule RxNorm: 3120682 Take 1 Capsule(s) Oral Q6H every 6 hours as needed 04/06/20 023 Inactive diphenhydramine 50 mg tablet RxNorm: 7293502 Take 1 Tablet(s) Oral Q6H every 6 hours as needed 04/06/20 022 Inactive diphenhydramine 50 mg tablet RxNorm: 2833536 1 Tablet(s) Oral Q6H every 6 hours as needed 04/06/20 022 Inactive Abilify 15 mg tablet RxNorm: 471455 1/2 Tablet(s) Oral QD 03/10/20 023 Inactive Shingrix (PF) 50 mcg/0.5 mL intramuscular suspension, kit RxNorm: 2413682 Administer 1/2 Milliliter(s) Intramuscular QD one time shingrix step 2 ( step 1 given 11/04/21) WITH needle - Nursing please administer upon arrival and once administered post a bridge message with date of administration, internal medicine nurse practitioner, expiration date, and lot# so we can update [facility] 02/18/20 22 022 Inactive dispense with needle Shingrix (PF) 50 mcg/0.5 mL intramuscular suspension, kit RxNorm: 0622588 Administer 1/2 Milliliter(s) Intramuscular QD one time shingrix step 2 ( step 1 given 11/04/21) WITH needle - Nursing please administer upon arrival and once administered post a bridge message with date of administration, internal medicine nurse practitioner, expiration date, and lot# so we can update [facility] 02/18/20 22 022 Inactive dispense with needle polyethylene glycol 3350 17 gram/dose oral powder RxNorm: 274431 Take 17=1 capful Gram(s) Oral QD mix with 4-8oz of liquid 01/08/20 023 Inactive take this in addition to BID prn order Lyrica 100 mg capsule RxNorm: 949669 Take 1 Capsule(s) Oral QAM every morning 01/08/20 22 022 Inactive d/c 50mg dose acetaminophen 500 mg tablet RxNorm: 223572 Take 1 Tablet(s) Oral TID 01/08/20 22 022 Inactive d/c PRN order Lyrica 150 mg capsule RxNorm: 524366 Take 1 Capsule(s) Oral QHS every night at bedtime 01/08/20 023 Inactive d/c 100mg dose Abilify 5 mg tablet RxNorm: 601384 Take 1 Tablet(s) Oral QD take 1 tab po QD #30 refill 5 dx: MDD 12/12/19 22 022 Inactive Abilify 5 mg tablet RxNorm: 844655 Take 1 Tablet(s) Oral QD take 1 tab po QD #30 refill 5 dx: MDD 12/12/19 22 022 Inactive Novolog Flexpen U-100 Insulin aspart 100 unit/mL (3 mL) subcutaneous RxNorm: 3639368 Inject 42 Unit(s) Subcutaneous TID in addition to sliding scale 12/10/19 22 022 Inactive d/c 36u chlorthalidone 25 mg tablet RxNorm: 713705 Take 1 Tablet(s) Oral QAM every morning 12/10/19 22 023 Inactive pregabalin 50 mg capsule RxNorm: 627313 Take 1 Capsule(s) Oral QAM every morning 11/12/19 22 022 Inactive tetanus-diphtheria toxoids-Td 2 Lf unit-2 Lf unit/0.5 mL IM suspension RxNorm: 139 Take 0.5 Miscellaneous Intramuscular 11/12/19 22 022 Inactive need tdap - nursing to administer upon arrival pregabalin 50 mg capsule RxNorm: 237818 Take 1 Capsule(s) Oral QAM every morning 10/16/19 22 022 Inactive pregabalin 50 mg capsule RxNorm: 720070 Take 1 Capsule(s) Oral QAM every morning 10/16/19 22 022 Inactive pregabalin 50 mg capsule RxNorm: 605487 1 Capsule(s) Oral QAM every morning 10/15/19 22 022 Inactive Shingrix (PF) 50 mcg/0.5 mL intramuscular suspension, kit RxNorm: 7245854 Administer 1/2 Milliliter(s) Intramuscular one time Nursing please administer upon arrival and once administered post a bridge message with date of administration, internal medicine nurse practitioner, expiration date, and lot# so we can update [facility]. 10/09/19 22 022 Inactive shingrix step 1 Shingrix (PF) 50 mcg/0.5 mL intramuscular suspension, kit RxNorm: 5665733 Administer 1/2 Milliliter(s) Intramuscular one time Nursing please administer upon arrival and once administered post a bridge message with date of administration, internal medicine nurse practitioner, expiration date, and lot# so we can update [facility]. 10/09/19 22 022 Inactive shingrix step 1 cholecalciferol (vitamin D3) 1,250 mcg (50,000 unit) capsule RxNorm: 781142 Take 1 Capsule(s) Oral QW once a [...] aspart 100 unit/mL (3 mL) subcutaneous RxNorm: 5768670 Inject 10 Unit(s) Subcutaneous QHS every night at bedtime with nighttime snack 10/08/19 22 022 Inactive Shingrix (PF) 50 mcg/0.5 mL intramuscular suspension, kit RxNorm: 7184145 ADMINISTER 2-DOSE SERIES PER CDC GUIDELINES 10/08/19 22 Active Shingrix (PF) 50 mcg/0.5 mL intramuscular suspension, kit RxNorm: 1296136 ADMINISTER 2-DOSE SERIES PER CDC GUIDELINES 10/08/19 22 Inactive Novolog Flexpen U-100 Insulin aspart 100 unit/mL (3 mL) subcutaneous RxNorm: 1571210 Inject 36 Unit(s) Subcutaneous TID in addition to sliding scale 10/08/19 Inactive Novofine Autocover 30 gauge x 1/3 needle RxNorm: Use 1 Miscellaneous UD as directed Use 1 needle as directed to administer insulin 5 times a day Dx:E11.42. 10/03/19 Inactive ok to substitute with any covered alternative pen needle benzoyl peroxide 10 % topical cleanser RxNorm: 602026 Apply 1 Application Topical QD apply to face, wash rinse and dry once daily (may change to QOD if drying) 08/19/19 022 Inactive (%covered by insurance) #60ml refill 11 dx: acne benzoyl peroxide 10 % topical cleanser RxNorm: 507082 Apply 1 Application Topical QD apply to face, wash rinse and dry once daily (may change to QOD if drying) 08/19/19 022 Inactive (%covered by insurance) #60ml refill 11 dx: acne benzoyl peroxide 10 % topical cleanser RxNorm: 836848 Apply 1 Application Topical QD apply to face, wash rinse and dry once daily (may change to QOD if drying) 08/19/19 22 022 Inactive (%covered by insurance) #60ml refill 11 dx: acne Lyrica 50 mg capsule RxNorm: 343509 Take 1 Capsule(s) Oral QAM every morning Take 1 capsule by mouth once daily 08/19/19 22 Inactive benzoyl peroxide 10 % topical cleanser RxNorm: 826994 Apply 1 Application Topical QD apply to face, wash rinse and dry once daily (may change to QOD if drying) 08/19/19 22 022 Inactive (%covered by insurance) #60ml refill 11 dx: acne Lyrica 100 mg capsule RxNorm: 638608 Take 1 Capsule(s) Oral QHS every night at bedtime Take 1 capsule by mouth once daily at bedtime 08/19/19 22 022 Inactive Lyrica 100 mg capsule RxNorm: 670658 Take 1 Capsule(s) Oral QHS every night at bedtime Take 1 capsule by mouth once daily at bedtime 08/16/19 22 022 Inactive Lyrica 50 mg capsule RxNorm: 416485 Take 1 Capsule(s) Oral QAM every morning Take 1 capsule by mouth once daily 08/16/19 22 022 Inactive Levemir FlexTouch U-100 Insulin 100 unit/mL (3 mL) subcutaneous pen RxNorm: 363297 Inject 86 Unit(s) Subcutaneous BID 08/05/19 22 022 Inactive d/c 83units BID Lyrica 100 mg capsule RxNorm: 663100 Take 1 Capsule(s) Oral QHS every night at bedtime Take 1 capsule by mouth once daily at bedtime 07/14/19 22 022 Inactive Lyrica 50 mg capsule RxNorm: 660832 Take 1 Capsule(s) Oral QAM every morning Take 1 capsule by mouth once daily 07/14/19 22 022 Inactive Levemir FlexTouch U-100 Insulin 100 unit/mL (3 mL) subcutaneous pen RxNorm: 033432 Inject 83 Unit(s) Subcutaneous BID 07/08/19 22 [...] 1 needle as directed to administer insulin. Dx:E11.. 06/05/19 22 022 Inactive ok to substitute [...] glucose 4 times daily and as needed. Dx:E11.. 06/05/19 22 022 Inactive ok to substitute with any covered alternative test strip Accu-Chek Guide test strips RxNorm: Use 1 Test Strip QID Use 1 test strip to monitor blood glucose 4 times daily and as needed. Dx:E1142. 06/05/19 22 022 Inactive ok to substitute with any covered alternative test strip isosorbide mononitrate ER 30 mg tablet,extended release 24 hr RxNorm: 742872 Take 1 Tablet(s) Oral QD 05/05/20 21 No Stop Date Active hydralazine 50 mg tablet RxNorm: 700315 Take 1 Tablet(s) Oral QID 05/05/20 21 022 Inactive venlafaxine ER 225 mg tablet,extended release 24 hr RxNorm: 579179 Take 1 Tablet(s) Oral QD 05/05/20 21 021 Inactive venlafaxine ER 225 mg tablet,extended release 24 hr RxNorm: 792916 Take 1 Tablet(s) Oral QD 05/05/20 21 022 Inactive hydralazine 50 mg tablet RxNorm: 553396 Take 1 Tablet(s) Oral QID 05/05/20 21 Inactive aspirin 81 mg tablet,delayed release RxNorm: 108013 Take 1 Tablet(s) Oral QD 03/31/20 21 022 Inactive Zetia 10 mg tablet RxNorm: 066845 Take 1 Tablet(s) Oral QD 03/31/20 21 Inactive Vitamin D2 1,250 mcg (50,000 unit) capsule RxNorm: 2570738 Take 1 Capsule(s) Oral QW once a week x 12 weeks 03/31/20 022 Inactive Vitamin D2 1,250 mcg (50,000 unit) capsule RxNorm: 8241255 Take 1 Capsule(s) Oral QW once a week 03/31/20 Inactive Zetia 10 mg tablet RxNorm: 211342 Take 1 Tablet(s) Oral QD 03/31/20 Inactive hydralazine 25 mg tablet RxNorm: 698842 Take 1 Tablet(s) Oral QID 03/31/20 021 Inactive hydralazine 25 mg tablet RxNorm: 939668 Take 1 Tablet(s) Oral QID 03/31/20 Inactive hydralazine 10 mg tablet RxNorm: 044870 Take 1 Tablet(s) Oral QID 03/03/20 021 Inactive cephalexin 500 mg tablet RxNorm: 012032 Take 1 Tablet(s) Oral QID 02/27/20 021 Inactive cephalexin 500 mg tablet RxNorm: 034741 Take 1 Tablet(s) Oral QID 02/27/20 021 Inactive lisinopril 40 mg tablet RxNorm: 527687 Take 1 Tablet(s) Oral QD 02/11/20 21 023 Inactive Eliquis 5 mg tablet RxNorm: 5445126 Take 1 Tablet(s) Oral BID 01/05/20 022 Inactive Eliquis 5 mg tablet RxNorm: 3629693 Take 2 Tablet(s) Oral QD 01/01/20 21 021 Inactive Lyrica 50 mg capsule RxNorm: 216403 Take 1 Capsule(s) Oral QAM every morning 12/24/19 21 021 Inactive Lyrica 100 mg capsule RxNorm: 084377 Take 1 Capsule(s) Oral QHS every night at bedtime 12/24/19 21 021 Inactive clotrimazole 1 % topical cream RxNorm: 523258 Apply to right foot and toes Topical BID 12/04/19 21 023 Inactive metoprolol succinate ER 200 mg tablet,extended release 24 hr RxNorm: 215227 Take 1 Tablet(s) Oral QD 12/04/19 023 Inactive ciprofloxacin 500 mg tablet RxNorm: 200482 Take 1 Tablet(s) Oral QD 11/30/19 21 021 Inactive DX ofloxacin otic drops Accu-Chek Guide test strips RxNorm: USE 1 TO CHECK GLUCOSE 4 TIMES DAILY AND NEEDED 11/15/19 21 023 Inactive Blood Glucose Test strips RxNorm: Use 1 Test Strip QID at PRN 11/05/19 21 023 Inactive E11.42 lisinopril 30 mg tablet RxNorm: 463906 Take 1 Tablet(s) Oral QD 10/30/19 021 Inactive lisinopril 20 mg tablet RxNorm: 273917 Take 1 Tablet(s) Oral QD 10/23/19 021 Inactive lisinopril 20 mg tablet RxNorm: 574735 Take 1 Tablet(s) Oral QD 10/23/19 021 Inactive lisinopril 10 mg tablet RxNorm: 745008 Take 1 Tablet(s) Oral QD 10/02/19 021 Inactive icosapent ethyl 1 gram capsule RxNorm: 3556400 Take 2 Capsule(s) (2 gm) Oral BID with meals 09/12/19 022 Inactive Okay to dispense one 2gm tab if you have that available. icosapent ethyl 1 gram capsule RxNorm: 0103747 Take 2 Capsule(s) Oral BID 09/12/19 021 Inactive Okay to dispense one 2gm tab if you have that available. amlodipine 10 mg tablet RxNorm: 937991 Take 1 Tablet(s) Oral QD 09/04/19 022 Inactive aspirin 81 mg tablet,delayed release RxNorm: 745115 Take 1 Tablet(s) Oral QD 09/04/19 21 021 Inactive Levemir FlexTouch U-100 Insulin 100 unit/mL (3 mL) subcutaneous pen RxNorm: 218971 Inject 150 Unit(s) Subcutaneous BID 09/04/19 21 022 Inactive venlafaxine ER 150 mg tablet,extended release 24 hr RxNorm: 436285 Take 1 Tablet(s) Oral QD 09/04/19 Inactive clotrimazole-betame thasone 1 %-0.05 % topical cream RxNorm: 020166 Apply to rash on red area on left abdomen/chest Topical BID 08/10/19 21 Inactive amlodipine 5 mg tablet RxNorm: 510091 Take 1 Tablet(s) Oral QD 07/31/19 Inactive cephalexin 500 mg tablet RxNorm: 248433 Take 1 Tablet(s) Oral BID BID - Twice Daily 07/31/19 Inactive Start 08/01/20 pantoprazole 40 mg tablet,delayed release RxNorm: 215682 Take 1 Tablet(s) Oral QAM every morning 07/08/19 Inactive senna 8.6 mg tablet RxNorm: 630215 Take 1 Tablet(s) Oral QD 07/08/19 022 Inactive pravastatin 80 mg tablet RxNorm: 030850 Take 1 Tablet(s) Oral QHS every night at bedtime 07/08/19 Inactive carbamazepine 200 mg tablet RxNorm: 799959 Take 1 Tablet(s) Oral BID 07/08/19 022 Inactive clopidogrel 75 mg tablet RxNorm: 084658 Take 1 Tablet(s) Oral QD 07/08/19 Inactive Blood Glucose Test strips RxNorm: Use 1 Test Strip QID at PRN 07/08/19 Inactive E11.42 Novolog Flexpen U-100 Insulin aspart 100 unit/mL (3 mL) subcutaneous RxNorm: 6915904 Administer per sliding scale Milliliter(s) Subcutaneous TID 151-200: 10 u; 201-250: 20 u; 251-300: 30 u; 301-350: 40 u; 351-400: 50 u. 07/08/19 21 022 Inactive lisinopril 5 mg tablet RxNorm: 173422 Take 1 Tablet(s) Oral QD 07/08/19 021 Inactive Novolog Flexpen U-100 Insulin aspart 100 unit/mL (3 mL) subcutaneous RxNorm: 7443381 Inject 85 Unit(s) Subcutaneous TID 07/08/19 21 022 Inactive clotrimazole 1 % topical cream RxNorm: 124371 Apply to bilateral groin areas Topical BID 07/08/19 022 Inactive metoprolol succinate ER 200 mg tablet,extended release 24 hr RxNorm: 924571 Take 1 Tablet(s) Oral QD 07/08/19 21 021 Inactive Vitamin D3 25 mcg (1,000 unit) tablet RxNorm: 247664 Take 1 Tablet(s) Oral QD 07/08/19 021 Inactive isosorbide dinitrate 30 mg tablet RxNorm: 639100 Take 1 Tablet(s) Oral QD 07/08/19 021 Inactive Levemir FlexTouch U-100 Insulin 100 unit/mL (3 mL) subcutaneous pen RxNorm: 943640 Inject 140 Unit(s) Subcutaneous BID 07/08/19 21 021 Inactive torsemide 20 mg tablet RxNorm: 194721 Take 1 Tablet(s) Oral QD 07/08/19 21 023 Inactive venlafaxine 75 mg tablet RxNorm: 642776 Take 1 Tablet(s) Oral QD 07/08/19 021 Inactive acetaminophen 500 mg tablet RxNorm: 609149 Take 1 Tablet(s) Oral TID as needed for headache 06/18/19 021 Inactive acetaminophen 500 mg tablet RxNorm: 036146 Take 1 Tablet(s) Oral TID as needed for headache 06/18/19 021 Inactive Lyrica 100 mg capsule RxNorm: 593373 Take 1 Capsule(s) Oral QHS every night at bedtime 06/11/19 21 021 Inactive Lyrica 50 mg capsule RxNorm: 615129 Take 1 Capsule(s) Oral QAM every morning 06/10/19 21 021 Inactive hydrocortisone 2.5 % topical cream RxNorm: 329099 Apply to bilateral groin creases Topical BID 05/15/20 20 021 Inactive clotrimazole 1 % topical cream RxNorm: 438172 Apply to bilateral groin areas Topical BID 05/15/20 20 Inactive Lyrica 50 mg capsule RxNorm: 141550 Take 1 Capsule(s) Oral QAM every morning 05/14/20 20 Inactive Lyrica 100 mg capsule RxNorm: 655997 Take 1 Capsule(s) Oral QHS every night [...] Inactive Nystop 100,000 unit/gram topical powder RxNorm: 462723 Apply to abd folds, under breasts and L side of groin Topical BID x 14 days, then BID PRN 04/08/20 20 Inactive dx: yeast dermatitis Lyrica 100 mg capsule RxNorm: 449793 Take 1 Capsule(s) Oral QHS every night at bedtime 03/13/20 20 Inactive Lyrica 50 mg capsule RxNorm: 870890 Take 1 Capsule(s) Oral QAM every morning 03/13/20 20 Inactive ketoconazole 2 % shampoo RxNorm: 375918 Apply Topical two times a week with showers 03/11/20 20 021 Inactive cholecalciferol (vitamin D3) 50 mcg (2,000 unit) tablet RxNorm: 986300 Take 1 Tablet(s) Oral QD 03/11/20 20 Inactive Zetia 10 mg tablet RxNorm: 612830 Take 1 Tablet(s) Oral QD 03/07/20 20 Inactive Zetia 10 mg tablet RxNorm: 802282 Take 1 Tablet(s) Oral QD 03/07/20 20 Inactive Lyrica 50 mg capsule RxNorm: 939632 Take 1 Capsule(s) Oral QAM every morning 02/15/20 20 Inactive Lyrica 100 mg capsule RxNorm: 198814 Take 1 Capsule(s) Oral QHS every night at bedtime 02/15/20 Inactive Lyrica 100 mg capsule RxNorm: 624290 Take 1 Capsule(s) Oral QHS every night at bedtime 02/15/20 Inactive Lyrica 50 mg capsule RxNorm: 210653 Take 1 Capsule(s) Oral QAM every morning 02/15/20 Inactive venlafaxine ER 75 mg capsule,extended release 24 hr RxNorm: 042619 Take 3 Capsule(s) Oral QD 06/12/19 22 Active polyethylene glycol 3350 17 gram/dose oral powder RxNorm: 242371 Take 17=1 capful Gram(s) Oral BID as needed mix with 4-8oz of liquid 06/12/19 22 Active metoprolol succinate ER 200 mg tablet,extended release 24 hr RxNorm: 291674 Take 1 Tablet(s) Oral QD 08/12/19 23 Active loperamide 2 mg capsule RxNorm: 436749 Take 1 Capsule(s) Oral QID as needed 06/12/19 22 Active hydralazine 50 mg tablet RxNorm: 629329 Take 1 Tablet(s) Oral QID 08/12/19 23 Active icosapent ethyl 1 gram capsule RxNorm: 5314939 Take 2 Capsule(s) (2 gm) Oral BID with meals 10/07/19 23 023 Inactive Okay to dispense one 2gm tab if you have that available. Levemir FlexTouch U-100 Insulin 100 unit/mL (3 mL) subcutaneous pen RxNorm: 682354 Inject 80 Unit(s) Subcutaneous BID 07/14/19 23 023 Inactive Novolog Flexpen U-100 Insulin aspart 100 unit/mL (3 mL) subcutaneous RxNorm: 4574950 Insert 30 Unit(s) Subcutaneous TID with meals [...] Date Patient Education: Patient Medication Summary Completed 01/26/2023 Patient Education: Influenza Vaccine Completed 01/26/2023 Appointment: Sandra Clark WPtel: [address] [place], [place] [phone] Telehealth Psych Follow Up 12/09 Appointment: Tapan Shirley WPtel: [address] [place], [place] [phone] [facility] 10/26/2022 Referral: [facility] WPtel: [address], [address] [id number] Referral Records Received 09/21/2022 Appointment: Tapan Shirley WPtel: [address] [place], [place] [phone] [place] F/U 08/11/2022 Appointment: Yola Shirleyy WPtel: [address] [facility] [address] [id number] [place] F/U 07/14/2022 Appointment: Tapan Shirley WPtel: [address] [facility] [address] [id number] [place] F/U 02/10/2022 Referral: [facility] WPtel: [phone] [facility] [address] [id number] [place] Referral Completed 05/28/2021 Referral: General Cardiology [...] Sister Jyotsna involved in his care cell# [phone] Guardian: Don (tapan met in person 09/01/21), now has Lexii (same group as don)Lab Schedule: * 01/12/2023
--- OUTSIDE RECORDS SUMMARY | 2023-02-18 19:13 | XMS_ITS | CCD ---
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 Name Role Phone Chelo Fonseca PA-C Primary Care Provider Unavaila ble Chelo Fonseca PA-C Chronic Care Management Nicole archer Summary Purpose DataExchange Insurance Providers Payer name Policy type / Coverage type Covered libertarian ID Effective Begin Date Effective End Date Medicare [place] Medicare Part B [id number] Unknown Unknown Medicaid [place] Medicare Part B [id number] Unknown Unknown Family history Sister Brittany Suggs [...] Residential 09/03/[address]: 7166456 Non-Smoker / No History of Smoking 09/02/[address]: 733604123 No Alcohol Consum ption 09/02/2020 Allergies, Adverse Reactions, Alerts Substance Reaction Codes Entered Date Inactivated Date Status LISINOPRIL RxNorm: 67612 02/12/2020 No Inactive Da te Active Metformin HCl Unknown 02/12/2020 No Inactive Cristiano e Active Problems Condition Codes Effective Dates Condition St atus Annual physical exam ICD-10: Z00.00 ICD-9: V70.0 02/02/2023 Active Coronary artery disease invo lving quechan coronary artery of quechan heart, angina presence unspecified ICD-10: I25.10 ICD-9: 414.01 02/02/2023 Active Encounter for other specifie d special examinations ICD-10: Z01.89 ICD-9: V72.85 02/02/2023 Active Encounter for screening for nutritional disorder ICD-10: Z13.21 ICD-9: V77.99 02/02/2023 Active Hyperlipidemia associated wi th type 2 diabetes mellitus ICD-10: E11.69 ICD-9: 250.80 02/02/2023 Active 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 ICD-10: Z79.899 ICD-9: [...] immunization ICD-10: Z23 ICD-9: V03.89 02/10/2022 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 ICD-10: Z79.4 02/10 [...] 75 mg capsule,extended release 24 hr RxNorm: 475324 Take 3 Capsule(s) Oral QD 02/04/20 23 023 Inactive FreeStyle Chema 2 Sensor kit RxNorm: use as directed 02/04/20 23 023 Inactive FreeStyle Chema 2 Sensor kit RxNorm: use as directed 02/04/20 23 024 Active fluconazole 150 mg tablet RxNorm: 051843 Take 1 Tablet(s) Oral on day 3 and on day 6 02/03/20 23 024 Active chlorthalidone 25 mg tablet RxNorm: 505583 Take 1 Tablet(s) Oral QAM every morning 02/03/20 No Stop Date Active venlafaxine ER 150 mg capsule,extended release 24 hr RxNorm: 342453 Take 1 Capsule(s) Oral QD 02/03/20 023 Inactive acetaminophen 500 mg tablet RxNorm: 797355 1 TABLET ORALLY 3 TIMES DAILY (MAX APAP:4GM/24HR) 12/15/19 23 024 Active potassium chloride ER 20 mEq tablet,extended release RxNorm: 390871 Take 1 Tablet(s) Oral BID 12/09/19 023 Active d/c 20mEq once daily (sent from hospital) clotrimazole 1 % topical cream RxNorm: 177615 apply 1g topically to top of feet and in between toes BID 12/09/19 23 023 Active nystatin 100,000 unit/gram topical powder RxNorm: 202853 APPLY TO AFFECTED AREAS TOPICALLY 2 TIMES DAILY 11/21/19 23 024 Active Nystop 100,000 unit/gram topical powder RxNorm: 831683 Apply to abd folds, under breasts and L side of groin Topical BID x 14 days, then BID PRN 11/20/19 23 023 Inactive dx: yeast dermatitis Bengay Ultra Strength 4 %-30 %-10 % topical cream RxNorm: 146826 Apply 1 Gram(s) Topical QID PRN to feet and legs for neuropathic pain 11/11/19 23 024 Active hydrocortisone 2.5 % topical cream RxNorm: 053433 Apply 1/2 Gram(s) Topical BID as needed 11/10/19 23 No Stop Date Active clotrimazole 1 % topical cream RxNorm: 537424 Apply 1/2 Gram(s) Topical BID Apply to affected areas of groin, periarea, and abdominal topically 2 times daily 11/10/19 23 023 Inactive Levemir FlexPen 100 unit/mL (3 mL) solution subcutaneous insulin pen RxNorm: 182389 Inject 30 Unit(s) Subcutaneous BID 10/07/19 024 Active Humulin R U-500 (Concentrated) Insulin 500 unit/mL subcutaneous soln RxNorm: 581793 Inject 100 Unit(s) Subcutaneous TID 10/07/19 024 Active Ozempic 0.25 mg or 0.5 mg (2 mg/3 mL) subcutaneous pen injector RxNorm: 5966745 Inject 1/2 Milligram(s) Subcutaneous QW once a week 10/07/19 024 Active aripiprazole 15 mg tablet RxNorm: 085545 1/2 TAB (7.5MG) ORALLY DAILY (DX:MAJOR DEPRESSIVE DISORDER) 09/23/19 023 Active Accu-Chek Guide test strips RxNorm: Use 1 Test Strip QID 09/15/19 23 024 Active ok to substitute with any covered alternative test strip Lancets,Thin 28 gauge RxNorm: Use 1 as directed QID 09/15/19 23 024 Active torsemide 20 mg tablet RxNorm: 449642 Take 1 Tablet(s) Oral BID 09/09/19 024 Active d/c once daily dosing carvedilol 25 mg tablet RxNorm: 155433 Take 1 Tablet(s) Oral QD 08/25/19 024 Active pregabalin 150 mg capsule RxNorm: 454443 1 Capsule(s) Oral HS at bed time 08/18/19 023 Inactive pregabalin 100 mg capsule RxNorm: 881788 1 Capsule(s) Oral QAM every morning 08/18/19 023 Inactive carvedilol 25 mg tablet RxNorm: 006340 1 Tablet(s) Oral QD 07/28/19 23 023 Inactive lisinopril 20 mg tablet RxNorm: 316507 Give 1 Tablet(s) Oral QD 07/28/19 23 023 Inactive Lyrica 150 mg capsule RxNorm: 374225 Take 1 Capsule(s) Oral QHS every night at bedtime 07/19/19 23 023 Inactive d/c 100mg dose Diflucan 150 mg tablet RxNorm: 052526 Take 1 Tablet(s) Oral QD repeat on day 3 and 6 07/19/19 23 023 Inactive pregabalin 100 mg capsule RxNorm: 149086 Take 1 Capsule(s) Oral QAM every morning 07/19/19 23 023 Inactive gatifloxacin 0.5 % eye drops RxNorm: 423553 Instill 1 Drop(s) as directed TID Instill 1 drop in to affected eye(s) starting 1 day prior to surgery and continue until gone (do not exceed 4 weeks). 07/13/19 23 023 Inactive carvedilol 25 mg tablet RxNorm: 113297 2 Tablet(s) Oral BID 07/13/19 23 023 Inactive Humulin R Regular U-100 Insulin 100 unit/mL injection solution RxNorm: 615532 85 Unit(s) Injection TID 07/13/19 23 023 Inactive ketorolac 0.5 % eye drops RxNorm: 816565 Instill 1 Drop(s) as directed QID Instill 1 drop into affected eye(s) 4 times daily starting 1 day prior to surgery and continue until gone (do not exceed 4 weeks). 07/13/19 23 023 Inactive Diflucan 150 mg tablet RxNorm: 183150 Take 1 Tablet(s) Oral QD repeat on day 3 and 6 06/30/19 23 023 Inactive Accu-Chek Guide test strips RxNorm: Use 1 Test Strip QID Use 1 test strip to monitor blood glucose 4 times daily and as needed. Dx:E11.42. 06/23/19 23 023 Inactive ok to substitute with any covered alternative test strip dextromethorphan-gu aifenesin 10 mg-100 mg/5 mL oral liquid RxNorm: 110076 Take 10 Milliliter(s) Oral every 4 hours as needed for cough 06/19/19 23 023 Inactive dextromethorphan-gu aifenesin 10 mg-100 mg/5 mL oral liquid RxNorm: 170962 Take 10 Milliliter(s) Oral every 4 hours as needed for cough 06/19/19 023 Inactive Lyrica 150 mg capsule RxNorm: 599687 Take 1 Capsule(s) Oral QHS every night at bedtime 06/18/19 023 Inactive d/c 100mg dose aripiprazole 15 mg tablet RxNorm: 417484 /2 TAB (7.5MG) ORALLY DAILY (DX:MAJOR DEPRESSIVE DISORDER) 06/05/19 023 Inactive pregabalin 100 mg capsule RxNorm: 982013 1 Capsule(s) Oral QAM every morning 06/02/19 023 Inactive Banophen 50 mg capsule RxNorm: 5208530 Take 1 Capsule(s) Oral Q6H every 6 hours as needed 05/19/19 No Stop Date Active Novolog Flexpen U-100 Insulin aspart 100 unit/mL (3 mL) subcutaneous RxNorm: 4308005 Inject 10 Unit(s) Subcutaneous QHS every night at bedtime with nighttime snack 04/08/20 022 Inactive Novolog Flexpen U-100 Insulin aspart 100 unit/mL (3 mL) subcutaneous RxNorm: 1477092 Inject 42 Unit(s) Subcutaneous TID in addition to sliding scale 04/08/20 022 Inactive d/c 36u albuterol sulfate HFA 90 mcg/actuation aerosol inhaler RxNorm: 7775134 Take 2 Puff(s) Inhalation Q4H every four hours as needed as needed for SOB, cough, or wheezing 04/07/20 030 Active Banophen 50 mg capsule RxNorm: 9196980 Take 1 Capsule(s) Oral Q6H every 6 hours as needed 04/06/20 023 Inactive diphenhydramine 50 mg tablet RxNorm: 5437752 Take 1 Tablet(s) Oral Q6H every 6 hours as needed 04/06/20 022 Inactive diphenhydramine 50 mg tablet RxNorm: 9660911 1 Tablet(s) Oral Q6H every 6 hours as needed 04/06/20 022 Inactive Abilify 15 mg tablet RxNorm: 221498 1/2 Tablet(s) Oral QD 03/10/20 22 023 Inactive Shingrix (PF) 50 mcg/0.5 mL intramuscular suspension, kit RxNorm: 3140184 Administer 1/2 Milliliter(s) Intramuscular QD one time shingrix step 2 ( step 1 given 11/04/21) WITH needle - Nursing please administer upon arrival and once administered post a 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, 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, 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, and lot# so we can update [facility] 02/18/20 22 022 Inactive dispense with needle Shingrix (PF) 50 mcg/0.5 mL intramuscular suspension, kit RxNorm: 7083417 Administer 1/2 Milliliter(s) Intramuscular QD one time shingrix step 2 ( step 1 given 11/04/21) WITH needle - Nursing please administer upon arrival and once administered post a bridge message 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, 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, 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, and lot# so we can update [facility] 02/18/20 22 022 Inactive dispense with needle polyethylene glycol 3350 17 gram/dose oral powder RxNorm: 850829 Take 17=1 capful Gram(s) Oral QD mix with 4-8oz of liquid 01/08/20 22 023 Inactive take this in addition to BID prn order Lyrica 100 mg capsule RxNorm: 275511 Take 1 Capsule(s) Oral QAM every morning 01/08/20 22 022 Inactive d/c 50mg dose acetaminophen 500 mg tablet RxNorm: 152708 Take 1 Tablet(s) Oral TID 01/08/20 22 022 Inactive d/c PRN order Lyrica 150 mg capsule RxNorm: 704479 Take 1 Capsule(s) Oral QHS every night at bedtime 01/08/20 22 023 Inactive d/c 100mg dose Abilify 5 mg tablet RxNorm: 630975 Take 1 Tablet(s) Oral QD take 1 tab po QD #30 refill 5 dx: MDD 12/12/19 22 022 Inactive Abilify 5 mg tablet RxNorm: 621229 Take 1 Tablet(s) Oral QD take 1 tab po QD #30 refill 5 dx: MDD 12/12/19 22 022 Inactive Novolog Flexpen U-100 Insulin aspart 100 unit/mL (3 mL) subcutaneous RxNorm: 3807061 Inject 42 Unit(s) Subcutaneous TID in addition to sliding scale 12/10/19 22 022 Inactive d/c 36u chlorthalidone 25 mg tablet RxNorm: 313843 Take 1 Tablet(s) Oral QAM every morning 12/10/19 22 023 Inactive pregabalin 50 mg capsule RxNorm: 832756 Take 1 Capsule(s) Oral QAM every morning 11/12/19 22 022 Inactive tetanus-diphtheria toxoids-Td 2 Lf unit-2 Lf unit/0.5 mL IM suspension RxNorm: 139 Take 0.5 Miscellaneous Intramuscular 11/12/19 22 022 Inactive need tdap - nursing to administer upon arrival pregabalin 50 mg capsule RxNorm: 048708 Take 1 Capsule(s) Oral QAM every morning 10/16/19 022 Inactive pregabalin 50 mg capsule RxNorm: 278357 Take 1 Capsule(s) Oral QAM every morning 10/16/19 22 022 Inactive pregabalin 50 mg capsule RxNorm: 121750 1 Capsule(s) Oral QAM every morning 10/15/19 22 022 Inactive Shingrix (PF) 50 mcg/0.5 mL intramuscular suspension, kit RxNorm: 7960450 Administer 1/2 Milliliter(s) Intramuscular one time Nursing please administer upon arrival and once administered post a bridge message 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 10/09/19 22 022 Inactive shingrix step 1 cholecalciferol (vitamin D3) 1,250 mcg (50,000 unit) capsule RxNorm: 785165 Take 1 Capsule(s) Oral QW once a [...] aspart 100 unit/mL (3 mL) subcutaneous RxNorm: 0692502 Inject 10 Unit(s) Subcutaneous QHS every night at bedtime with nighttime snack 10/08/19 22 Inactive Shingrix (PF) 50 mcg/0.5 mL intramuscular suspension, kit RxNorm: 0502256 ADMINISTER 2-DOSE SERIES PER CDC GUIDELINES 10/08/19 22 Active Shingrix (PF) 50 mcg/0.5 mL intramuscular suspension, kit RxNorm: 1871702 ADMINISTER 2-DOSE SERIES PER CDC GUIDELINES 10/08/19 22 Inactive Novolog Flexpen U-100 Insulin aspart 100 unit/mL (3 mL) subcutaneous RxNorm: 0770985 Inject 36 Unit(s) Subcutaneous TID in addition to sliding scale 10/08/19 22 Inactive Novofine Autocover 30 gauge x 1/3 needle RxNorm: Use 1 Miscellaneous UD as directed Use 1 needle as directed to administer insulin 5 times a day Dx:E11.42. 10/03/19 22 Inactive ok to substitute with any covered alternative pen needle benzoyl peroxide 10 % topical cleanser RxNorm: 646854 Apply 1 Application Topical QD apply to face, wash rinse and dry once daily (may change to QOD if drying) 08/19/19 22 Inactive (%covered by insurance) #60ml refill 11 dx: acne benzoyl peroxide 10 % topical cleanser RxNorm: 638593 Apply 1 Application Topical QD apply to face, wash rinse and dry once daily (may change to QOD if drying) 08/19/19 22 022 Inactive (%covered by insurance) #60ml refill 11 dx: acne benzoyl peroxide 10 % topical cleanser RxNorm: 894079 Apply 1 Application Topical QD apply to face, wash rinse and dry once daily (may change to QOD if drying) 08/19/19 22 022 Inactive (%covered by insurance) #60ml refill 11 dx: acne Lyrica 50 mg capsule RxNorm: 089627 Take 1 Capsule(s) Oral QAM every morning Take 1 capsule by mouth once daily 08/19/19 22 022 Inactive benzoyl peroxide 10 % topical cleanser RxNorm: 339885 Apply 1 Application Topical QD apply to face, wash rinse and dry once daily (may change to QOD if drying) 08/19/19 22 022 Inactive (%covered by insurance) #60ml refill 11 dx: acne Lyrica 100 mg capsule RxNorm: 949187 Take 1 Capsule(s) Oral QHS every night at bedtime Take 1 capsule by mouth once daily at bedtime 08/19/19 22 022 Inactive Lyrica 100 mg capsule RxNorm: 552097 Take 1 Capsule(s) Oral QHS every night at bedtime Take 1 capsule by mouth once daily at bedtime 08/16/19 022 Inactive Lyrica 50 mg capsule RxNorm: 564881 Take 1 Capsule(s) Oral QAM every morning Take 1 capsule by mouth once daily 08/16/19 Inactive Levemir FlexTouch U-100 Insulin 100 unit/mL (3 mL) subcutaneous pen RxNorm: 646021 Inject 86 Unit(s) Subcutaneous BID 08/05/19 22 022 Inactive d/c 83units BID Lyrica 100 mg capsule RxNorm: 783709 Take 1 Capsule(s) Oral QHS every night at bedtime Take 1 capsule by mouth once daily at bedtime 07/14/19 22 022 Inactive Lyrica 50 mg capsule RxNorm: 009564 Take 1 Capsule(s) Oral QAM every morning Take 1 capsule by mouth once daily 07/14/19 22 Inactive Levemir FlexTouch U-100 Insulin 100 unit/mL (3 mL) subcutaneous pen RxNorm: 044909 Inject 83 Unit(s) Subcutaneous BID 07/08/19 22 [...] 30 mg tablet,extended release 24 hr RxNorm: 031792 Take 1 Tablet(s) Oral QD 05/05/20 No Stop Date Active hydralazine 50 mg tablet RxNorm: 908879 Take 1 Tablet(s) Oral QID 05/05/20 Inactive venlafaxine ER 225 mg tablet,extended release 24 hr RxNorm: 098355 Take 1 Tablet(s) Oral QD 05/05/20 Inactive venlafaxine ER 225 mg tablet,extended release 24 hr RxNorm: 733957 Take 1 Tablet(s) Oral QD 05/05/20 022 Inactive hydralazine 50 mg tablet RxNorm: 137883 Take 1 Tablet(s) Oral QID 05/05/20 Inactive aspirin 81 mg tablet,delayed release RxNorm: 235715 Take 1 Tablet(s) Oral QD 03/31/20 Inactive Zetia 10 mg tablet RxNorm: 001682 Take 1 Tablet(s) Oral QD 03/31/20 Inactive Vitamin D2 1,250 mcg (50,000 unit) capsule RxNorm: 5953928 Take 1 Capsule(s) Oral QW once a week x 12 weeks 03/31/20 Inactive Vitamin D2 1,250 mcg (50,000 unit) capsule RxNorm: 8395433 Take 1 Capsule(s) Oral QW once a week 03/31/20 Inactive Zetia 10 mg tablet RxNorm: 041391 Take 1 Tablet(s) Oral QD 03/31/20 Inactive hydralazine 25 mg tablet RxNorm: 549908 Take 1 Tablet(s) Oral QID 03/31/20 Inactive hydralazine 25 mg tablet RxNorm: 215238 Take 1 Tablet(s) Oral QID 03/31/20 Inactive hydralazine 10 mg tablet RxNorm: 253515 Take 1 Tablet(s) Oral QID 03/03/20 Inactive cephalexin 500 mg tablet RxNorm: 418010 Take 1 Tablet(s) Oral QID 02/27/20 021 Inactive cephalexin 500 mg tablet RxNorm: 178798 Take 1 Tablet(s) Oral QID 10/13/20 21 10/13/2 021 Inactive lisinopril 40 mg tablet RxNorm: 301351 Take 1 Tablet(s) Oral QD 02/11/20 023 Inactive Eliquis 5 mg tablet RxNorm: 9857929 Take 1 Tablet(s) Oral BID 01/05/20 21 022 Inactive Eliquis 5 mg tablet RxNorm: 5384777 Take 2 Tablet(s) Oral QD 01/01/20 21 021 Inactive Lyrica 50 mg capsule RxNorm: 992932 Take 1 Capsule(s) Oral QAM every morning 12/24/19 021 Inactive Lyrica 100 mg capsule RxNorm: 809831 Take 1 Capsule(s) Oral QHS every night at bedtime 12/24/19 021 Inactive clotrimazole 1 % topical cream RxNorm: 143538 Apply to right foot and toes Topical BID 12/04/19 21 023 Inactive metoprolol succinate ER 200 mg tablet,extended release 24 hr RxNorm: 337663 Take 1 Tablet(s) Oral QD 12/04/19 023 Inactive ciprofloxacin 500 mg tablet RxNorm: 055132 Take 1 Tablet(s) Oral QD 11/30/19 021 Inactive DX ofloxacin otic drops Accu-Chek Guide test strips RxNorm: USE 1 TO CHECK GLUCOSE 4 TIMES DAILY AND NEEDED 11/15/19 21 023 Inactive Blood Glucose Test strips RxNorm: Use 1 Test Strip QID at PRN 11/05/19 21 023 Inactive E11.42 lisinopril 30 mg tablet RxNorm: 710796 Take 1 Tablet(s) Oral QD 10/30/19 021 Inactive lisinopril 20 mg tablet RxNorm: 243306 Take 1 Tablet(s) Oral QD 10/23/19 021 Inactive lisinopril 20 mg tablet RxNorm: 148432 Take 1 Tablet(s) Oral QD 10/23/19 21 021 Inactive lisinopril 10 mg tablet RxNorm: 058924 Take 1 Tablet(s) Oral QD 05/18/20 21 06/07/2 021 Inactive icosapent ethyl 1 gram capsule RxNorm: 4336986 Take 2 Capsule(s) (2 gm) Oral BID with meals 09/12/19 Inactive Okay to dispense one 2gm tab if you have that available. icosapent ethyl 1 gram capsule RxNorm: 4497138 Take 2 Capsule(s) Oral BID 09/12/19 Inactive Okay to dispense one 2gm tab if you have that available. amlodipine 10 mg tablet RxNorm: 497398 Take 1 Tablet(s) Oral QD 09/04/19 Inactive aspirin 81 mg tablet,delayed release RxNorm: 815647 Take 1 Tablet(s) Oral QD 09/04/19 Inactive Levemir FlexTouch U-100 Insulin 100 unit/mL (3 mL) subcutaneous pen RxNorm: 990912 Inject 150 Unit(s) Subcutaneous BID 09/04/19 Inactive venlafaxine ER 150 mg tablet,extended release 24 hr RxNorm: 274048 Take 1 Tablet(s) Oral QD 09/04/19 Inactive clotrimazole-betame thasone 1 %-0.05 % topical cream RxNorm: 371717 Apply to rash on red area on left abdomen/chest Topical BID 08/10/19 Inactive amlodipine 5 mg tablet RxNorm: 750384 Take 1 Tablet(s) Oral QD 07/31/19 Inactive cephalexin 500 mg tablet RxNorm: 711322 Take 1 Tablet(s) Oral BID BID - Twice Daily 07/31/19 021 Inactive Start 08/01/20 pantoprazole 40 mg tablet,delayed release RxNorm: 640108 Take 1 Tablet(s) Oral QAM every morning 07/08/19 Inactive senna 8.6 mg tablet RxNorm: 918750 Take 1 Tablet(s) Oral QD 07/08/19 Inactive pravastatin 80 mg tablet RxNorm: 569495 Take 1 Tablet(s) Oral QHS every night at bedtime 07/08/19 Inactive carbamazepine 200 mg tablet RxNorm: 148324 Take 1 Tablet(s) Oral BID 07/08/19 Inactive clopidogrel 75 mg tablet RxNorm: 777242 Take 1 Tablet(s) Oral QD 07/08/19 21 021 Inactive Blood Glucose Test strips RxNorm: Use 1 Test Strip QID at PRN 07/08/19 21 Inactive E11.42 Novolog Flexpen U-100 Insulin aspart 100 unit/mL (3 mL) subcutaneous RxNorm: 5640931 Administer per sliding scale Milliliter(s) Subcutaneous TID 151-200: 10 u; 201-250: 20 u; 251-300: 30 u; 301-350: 40 u; 351-400: 50 u. 07/08/19 022 Inactive lisinopril 5 mg tablet RxNorm: 783336 Take 1 Tablet(s) Oral QD 07/08/19 Inactive Novolog Flexpen U-100 Insulin aspart 100 unit/mL (3 mL) subcutaneous RxNorm: 4753826 Inject 85 Unit(s) Subcutaneous TID 07/08/19 Inactive clotrimazole 1 % topical cream RxNorm: 455824 Apply to bilateral groin areas Topical BID 07/08/19 Inactive metoprolol succinate ER 200 mg tablet,extended release 24 hr RxNorm: 688746 Take 1 Tablet(s) Oral QD 07/08/19 Inactive Vitamin D3 25 mcg (1,000 unit) tablet RxNorm: 202071 Take 1 Tablet(s) Oral QD 07/08/19 021 Inactive isosorbide dinitrate 30 mg tablet RxNorm: 267510 Take 1 Tablet(s) Oral QD 07/08/19 021 Inactive Levemir FlexTouch U-100 Insulin 100 unit/mL (3 mL) subcutaneous pen RxNorm: 572807 Inject 140 Unit(s) Subcutaneous BID 07/08/19 21 021 Inactive torsemide 20 mg tablet RxNorm: 230520 Take 1 Tablet(s) Oral QD 07/08/19 21 023 Inactive venlafaxine 75 mg tablet RxNorm: 537214 Take 1 Tablet(s) Oral QD 07/08/19 21 021 Inactive acetaminophen 500 mg tablet RxNorm: 649295 Take 1 Tablet(s) Oral TID as needed for headache 06/18/19 21 021 Inactive acetaminophen 500 mg tablet RxNorm: 903345 Take 1 Tablet(s) Oral TID as needed for headache 06/18/19 21 021 Inactive Lyrica 100 mg capsule RxNorm: 100184 Take 1 Capsule(s) Oral QHS every night at bedtime 06/11/19 21 021 Inactive Lyrica 50 mg capsule RxNorm: 319827 Take 1 Capsule(s) Oral QAM every morning 06/10/19 21 021 Inactive hydrocortisone 2.5 % topical cream RxNorm: 246196 Apply to bilateral groin creases Topical BID 05/15/20 20 021 Inactive clotrimazole 1 % topical cream RxNorm: 134655 Apply to bilateral groin areas Topical BID 05/15/20 20 021 Inactive Lyrica 50 mg capsule RxNorm: 941293 Take 1 Capsule(s) Oral QAM every morning 05/14/20 20 020 Inactive Lyrica 100 mg capsule RxNorm: 597135 Take 1 Capsule(s) Oral QHS every night [...] Inactive Nystop 100,000 unit/gram topical powder RxNorm: 030466 Apply to abd folds, under breasts and L side of groin Topical BID x 14 days, then BID PRN 04/08/20 20 Inactive dx: yeast dermatitis Lyrica 100 mg capsule RxNorm: 747417 Take 1 Capsule(s) Oral QHS every night at bedtime 03/13/20 20 Inactive Lyrica 50 mg capsule RxNorm: 846784 Take 1 Capsule(s) Oral QAM every morning 03/13/20 20 Inactive ketoconazole 2 % shampoo RxNorm: 103345 Apply Topical two times a week with showers 03/11/20 20 Inactive cholecalciferol (vitamin D3) 50 mcg (2,000 unit) tablet RxNorm: 832143 Take 1 Tablet(s) Oral QD 03/11/20 20 Inactive Zetia 10 mg tablet RxNorm: 519092 Take 1 Tablet(s) Oral QD 03/07/20 20 021 Inactive Zetia 10 mg tablet RxNorm: 574357 Take 1 Tablet(s) Oral QD 03/07/20 20 Inactive Lyrica 50 mg capsule RxNorm: 593737 Take 1 Capsule(s) Oral QAM every morning 02/15/20 20 Inactive Lyrica 100 mg capsule RxNorm: 937478 Take 1 Capsule(s) Oral QHS every night at bedtime 02/15/20 20 Inactive Lyrica 100 mg capsule RxNorm: 568660 Take 1 Capsule(s) Oral QHS every night at bedtime 02/15/20 20 Inactive Lyrica 50 mg capsule RxNorm: 520650 Take 1 Capsule(s) Oral QAM every morning 02/15/20 20 Inactive polyethylene glycol 3350 17 gram/dose oral powder RxNorm: 513468 Take 17=1 capful Gram(s) Oral BID as needed mix with 4-8oz of liquid 01/27/20 22 Active metoprolol succinate ER 200 mg tablet,extended release 24 hr RxNorm: 650313 Take 1 Tablet(s) Oral QD 08/12/19 23 Active loperamide 2 mg capsule RxNorm: 120352 Take 1 Capsule(s) Oral QID as needed 06/12/19 22 Active hydralazine 50 mg tablet RxNorm: 921235 Take 1 Tablet(s) Oral QID 08/12/19 23 Active venlafaxine ER 75 mg capsule,extended release 24 hr RxNorm: 099957 Take 3 Capsule(s) Oral QD 06/12/19 22 023 Inactive icosapent ethyl 1 gram capsule RxNorm: 2913377 Take 2 Capsule(s) (2 gm) Oral BID with meals 10/07/19 23 023 Inactive Okay to dispense one 2gm tab if you have that available. Levemir FlexTouch U-100 Insulin 100 unit/mL (3 mL) subcutaneous pen RxNorm: 426074 Inject 80 Unit(s) Subcutaneous BID 07/14/19 23 023 Inactive Novolog Flexpen U-100 Insulin aspart 100 unit/mL (3 mL) subcutaneous RxNorm: 3525480 Insert 30 Unit(s) Subcutaneous TID with meals [...] Codes Status Date Referral: [facility] [place] WPtel: [phone], [address] [id number] [place] Referral Records Received 09/21/2022 Referral: [facility] W[facility]el: [address] [id number] [place] Referral Completed 05/28/2021 Referral: General Cardiology [...] Sister Jyotsna involved in his care cell# [phone] Guardian: Don (tapan met in person 09/01/21), now has Lexii (same group as don)Lab Schedule: * 02/08/2023
--- OUTSIDE RECORDS SUMMARY | 2023-02-18 19:13 | XMS_ITS | CCD ---
Author Name Chelo Fonseca PA-C Address 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 Name Role Phone Chelo Fonseca PA-C Primary Care Provider Unavaila ble Chelo Fonseca PA-C Chronic Care Management Unavai suzi Summary Purpose DataExchange Insurance Providers Payer name Policy type / Coverage type Covered green party ID Effective Begin Date Effective End Date Medicare [place] Medicare Part B [id number] Unknown Unknown [place] Medicare Part B [id number] Unknown Unknown Family history Sister Brittany Suggs [...] 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 09/03/[address]: 2032716 Non-Smoker / No History of Smoking 09/02/[address]: 641544377 No Alcohol Consum ption 09/02/2020 Allergies, Adverse Reactions, Alerts Substance Reaction Codes Entered Date Inactivated Date Status LISINOPRIL RxNorm: 39436 02/12/2020 No Inactive Da te Active Metformin HCl Unknown 02/12/2020 No Inactive Cristiano e Active Problems Condition Codes Effective Dates Condition St at[facility] Annual physical exam ICD-10: Z00.00 ICD-9: V70.0 02/02/2023 Active Coronary artery disease invo lving bad [...] ICD-10: E11.69 ICD-9: 250.80 02/02/2023 Active Other correction (current) dr dinesh therapy ICD-10: Z79.899 ICD-9: V58.69 02/02/2023 Active [...] Fill Instructions fluconazole 150 mg tablet RxNorm: 321013 Take 1 Tablet(s) Oral on day 3 and on day 6 02/03/20 024 Active chlorthalidone 25 mg tablet RxNorm: 903204 Take 1 Tablet(s) Oral QAM every morning 02/03/20 No Stop Date Active venlafaxine ER 150 mg capsule,extended release 24 hr RxNorm: 488473 Take 1 Capsule(s) Oral QD 02/03/20 023 Inactive acetaminophen 500 mg tablet RxNorm: 967480 1 TABLET ORALLY 3 TIMES DAILY (MAX APAP:4GM/24HR) 12/15/19 024 Active potassium chloride ER 20 mEq tablet,extended release RxNorm: 647444 Take 1 Tablet(s) Oral BID 12/09/19 023 Active d/c 20mEq once daily (sent from hospital) clotrimazole 1 % topical cream RxNorm: 253200 apply 1g topically to top of feet and in between toes BID 12/09/19 23 023 Active nystatin 100,000 unit/gram topical powder RxNorm: 167950 APPLY TO AFFECTED AREAS TOPICALLY 2 TIMES DAILY 11/21/19 23 024 Active Nystop 100,000 unit/gram topical powder RxNorm: 848202 Apply to abd folds, under breasts and L side of groin Topical BID x 14 days, then BID PRN 11/20/19 023 Inactive dx: yeast dermatitis Bengay Ultra Strength 4 %-30 %-10 % topical cream RxNorm: 786984 Apply 1 Gram(s) Topical QID PRN to feet and legs for neuropathic pain 11/11/19 024 Active hydrocortisone 2.5 % topical cream RxNorm: 150586 Apply 1/2 Gram(s) Topical BID as needed 11/10/19 No Stop Date Active clotrimazole 1 % topical cream RxNorm: 769043 Apply 1/2 Gram(s) Topical BID Apply to affected areas of groin, periarea, and abdominal topically 2 times daily 11/10/19 23 023 Inactive Levemir FlexPen 100 unit/mL (3 mL) solution subcutaneous insulin pen RxNorm: 525054 Inject 30 Unit(s) Subcutaneous BID 10/07/19 024 Active Humulin R U-500 (Concentrated) Insulin 500 unit/mL subcutaneous soln RxNorm: 975811 Inject 100 Unit(s) Subcutaneous TID 10/07/19 024 Active Ozempic 0.25 mg or 0.5 mg (2 mg/3 mL) subcutaneous pen injector RxNorm: 1821401 Inject 1/2 Milligram(s) Subcutaneous QW once a week 10/07/19 024 Active aripiprazole 15 mg tablet RxNorm: 002178 1/2 TAB (7.5MG) ORALLY DAILY (DX:MAJOR DEPRESSIVE DISORDER) 09/23/19 023 Active Accu-Chek Guide test strips RxNorm: Use 1 Test Strip QID 09/15/19 024 Active ok to substitute with any covered alternative test strip Lancets,Thin 28 gauge RxNorm: Use 1 as directed QID 09/15/19 23 024 Active torsemide 20 mg tablet RxNorm: 347504 Take 1 Tablet(s) Oral BID 09/09/19 024 Active d/c once daily dosing carvedilol 25 mg tablet RxNorm: 554470 Take 1 Tablet(s) Oral QD 08/25/19 024 Active pregabalin 150 mg capsule RxNorm: 445040 1 Capsule(s) Oral HS at bed time 08/18/19 023 Inactive pregabalin 100 mg capsule RxNorm: 196739 1 Capsule(s) Oral QAM every morning 08/18/19 023 Inactive carvedilol 25 mg tablet RxNorm: 936642 1 Tablet(s) Oral QD 07/28/19 23 023 Inactive lisinopril 20 mg tablet RxNorm: 937468 Give 1 Tablet(s) Oral QD 07/28/19 23 023 Inactive Lyrica 150 mg capsule RxNorm: 743119 Take 1 Capsule(s) Oral QHS every night at bedtime 07/19/19 23 023 Inactive d/c 100mg dose Diflucan 150 mg tablet RxNorm: 835663 Take 1 Tablet(s) Oral QD repeat on day 3 and 6 07/19/19 23 023 Inactive pregabalin 100 mg capsule RxNorm: 222220 Take 1 Capsule(s) Oral QAM every morning 07/19/19 23 023 Inactive gatifloxacin 0.5 % eye drops RxNorm: 328447 Instill 1 Drop(s) as directed TID Instill 1 drop in to affected eye(s) starting 1 day prior to surgery and continue until gone (do not exceed 4 weeks). 07/13/19 23 023 Inactive carvedilol 25 mg tablet RxNorm: 355873 2 Tablet(s) Oral BID 07/13/19 23 023 Inactive Humulin R Regular U-100 Insulin 100 unit/mL injection solution RxNorm: 336822 85 Unit(s) Injection TID 07/13/19 23 023 Inactive ketorolac 0.5 % eye drops RxNorm: 691831 Instill 1 Drop(s) as directed QID Instill 1 drop into affected eye(s) 4 times daily starting 1 day prior to surgery and continue until gone (do not exceed 4 weeks). 07/13/19 23 023 Inactive Diflucan 150 mg tablet RxNorm: 638907 Take 1 Tablet(s) Oral QD repeat on day 3 and 6 06/30/19 23 023 Inactive Accu-Chek Guide test strips RxNorm: Use 1 Test Strip QID Use 1 test strip to monitor blood glucose 4 times daily and as needed. Dx:E11.42. 06/23/19 23 023 Inactive ok to substitute with any covered alternative test strip dextromethorphan-gu aifenesin 10 mg-100 mg/5 mL oral liquid RxNorm: 848529 Take 10 Milliliter(s) Oral every 4 hours as needed for cough 06/19/19 23 023 Inactive dextromethorphan-gu aifenesin 10 mg-100 mg/5 mL oral liquid RxNorm: 530417 Take 10 Milliliter(s) Oral every 4 hours as needed for cough 06/19/19 23 023 Inactive Lyrica 150 mg capsule RxNorm: 146519 Take 1 Capsule(s) Oral QHS every night at bedtime 06/18/19 023 Inactive d/c 100mg dose aripiprazole 15 mg tablet RxNorm: 542294 1/2 TAB (7.5MG) ORALLY DAILY (DX:MAJOR DEPRESSIVE DISORDER) 06/05/19 023 Inactive pregabalin 100 mg capsule RxNorm: 171496 1 Capsule(s) Oral QAM every morning 06/02/19 023 Inactive Banophen 50 mg capsule RxNorm: 5262220 Take 1 Capsule(s) Oral Q6H every 6 hours as needed 05/19/19 No Stop Date Active Novolog Flexpen U-100 Insulin aspart 100 unit/mL (3 mL) subcutaneous RxNorm: 5868663 Inject 10 Unit(s) Subcutaneous QHS every night at bedtime with nighttime snack 04/08/20 022 Inactive Novolog Flexpen U-100 Insulin aspart 100 unit/mL (3 mL) subcutaneous RxNorm: 7507147 Inject 42 Unit(s) Subcutaneous TID in addition to sliding scale 04/08/20 022 Inactive d/c 36u albuterol sulfate HFA 90 mcg/actuation aerosol inhaler RxNorm: 1499877 Take 2 Puff(s) Inhalation Q4H every four hours as needed as needed for SOB, cough, or wheezing 04/07/20 030 Active Banophen 50 mg capsule RxNorm: 9543324 Take 1 Capsule(s) Oral Q6H every 6 hours as needed 04/06/20 023 Inactive diphenhydramine 50 mg tablet RxNorm: 2584731 Take 1 Tablet(s) Oral Q6H every 6 hours as needed 04/06/20 22 022 Inactive diphenhydramine 50 mg tablet RxNorm: 2327367 1 Tablet(s) Oral Q6H every 6 hours as needed 04/06/20 22 022 Inactive Abilify 15 mg tablet RxNorm: 012150 1/2 Tablet(s) Oral QD 03/10/20 22 023 Inactive Shingrix (PF) 50 mcg/0.5 mL intramuscular suspension, kit RxNorm: 0093260 Administer 1/2 Milliliter(s) Intramuscular QD one time shingrix step 2 ( step 1 given 11/04/21) WITH needle - Nursing please administer upon arrival and once administered post a bridge message with date of administration, manager logistic, expiration date, and lot# so we can update [facility] 02/18/20 22 022 Inactive dispense with needle Shingrix (PF) 50 mcg/0.5 mL intramuscular suspension, kit RxNorm: 8383298 Administer 1/2 Milliliter(s) Intramuscular QD one time shingrix step 2 ( step 1 given 11/04/21) WITH needle - Nursing please administer upon arrival and once administered post a bridge message with date of administration, manager logistic, expiration date, and lot# so we can update [facility] 02/18/20 22 022 Inactive dispense with needle polyethylene glycol 3350 17 gram/dose oral powder RxNorm: 612059 Take 17=1 capful Gram(s) Oral QD mix with 4-8oz of liquid 01/08/20 22 023 Inactive take this in addition to BID prn order Lyrica 100 mg capsule RxNorm: 179034 Take 1 Capsule(s) Oral QAM every morning 01/08/20 22 022 Inactive d/c 50mg dose acetaminophen 500 mg tablet RxNorm: 747808 Take 1 Tablet(s) Oral TID 01/08/20 22 022 Inactive d/c PRN order Lyrica 150 mg capsule RxNorm: 206408 Take 1 Capsule(s) Oral QHS every night at bedtime 01/08/20 22 023 Inactive d/c 100mg dose Abilify 5 mg tablet RxNorm: 109470 Take 1 Tablet(s) Oral QD take 1 tab po QD #30 refill 5 dx: MDD 12/12/19 22 022 Inactive Abilify 5 mg tablet RxNorm: 102144 Take 1 Tablet(s) Oral QD take 1 tab po QD #30 refill 5 dx: MDD 12/12/19 22 022 Inactive Novolog Flexpen U-100 Insulin aspart 100 unit/mL (3 mL) subcutaneous RxNorm: 7342368 Inject 42 Unit(s) Subcutaneous TID in addition to sliding scale 12/10/19 22 022 Inactive d/c 36u chlorthalidone 25 mg tablet RxNorm: 150232 Take 1 Tablet(s) Oral QAM every morning 12/10/19 22 023 Inactive pregabalin 50 mg capsule RxNorm: 844340 Take 1 Capsule(s) Oral QAM every morning 11/12/19 22 022 Inactive tetanus-diphtheria toxoids-Td 2 Lf unit-2 Lf unit/0.5 mL IM suspension RxNorm: 139 Take 0.5 Miscellaneous Intramuscular 11/12/19 22 022 Inactive need tdap - nursing to administer upon arrival pregabalin 50 mg capsule RxNorm: 006470 Take 1 Capsule(s) Oral QAM every morning 10/16/19 22 022 Inactive pregabalin 50 mg capsule RxNorm: 525170 Take 1 Capsule(s) Oral QAM every morning 10/16/19 22 022 Inactive pregabalin 50 mg capsule RxNorm: 293550 1 Capsule(s) Oral QAM every morning 10/15/19 22 022 Inactive Shingrix (PF) 50 mcg/0.5 mL intramuscular suspension, kit RxNorm: 2112056 Administer 1/2 Milliliter(s) Intramuscular one time Nursing please administer upon arrival and once administered post a bridge message with date of administration, manager logistic, expiration date, and lot# so we can update [facility]. 10/09/19 22 022 Inactive shingrix step 1 Shingrix (PF) 50 mcg/0.5 mL intramuscular suspension, kit RxNorm: 4199454 Administer 1/2 Milliliter(s) Intramuscular one time Nursing please administer upon arrival and once administered post a bridge message with date of administration, manager logistic, expiration date, and lot# so we can update [facility]. 10/09/19 22 022 Inactive shingrix step 1 cholecalciferol (vitamin D3) 1,250 mcg (50,000 unit) capsule RxNorm: 046008 Take 1 Capsule(s) Oral QW once a [...] aspart 100 unit/mL (3 mL) subcutaneous RxNorm: 2533935 Inject 10 Unit(s) Subcutaneous QHS every night at bedtime with nighttime snack 10/08/19 22 Inactive Shingrix (PF) 50 mcg/0.5 mL intramuscular suspension, kit RxNorm: 0272893 ADMINISTER 2-DOSE SERIES PER CDC GUIDELINES 10/08/19 22 Active Shingrix (PF) 50 mcg/0.5 mL intramuscular suspension, kit RxNorm: 8067841 ADMINISTER 2-DOSE SERIES PER CDC GUIDELINES 10/08/19 22 Inactive Novolog Flexpen U-100 Insulin aspart 100 unit/mL (3 mL) subcutaneous RxNorm: 3292395 Inject 36 Unit(s) Subcutaneous TID in addition to sliding scale 10/08/19 22 Inactive Novofine Autocover 30 gauge x 1/3 needle RxNorm: Use 1 Miscellaneous UD as directed Use 1 needle as directed to administer insulin 5 times a day Dx:E11.42. 10/03/19 Inactive ok to substitute with any covered alternative pen needle benzoyl peroxide 10 % topical cleanser RxNorm: 131363 Apply 1 Application Topical QD apply to face, wash rinse and dry once daily (may change to QOD if drying) 08/19/19 22 022 Inactive (%covered by insurance) #60ml refill 11 dx: acne benzoyl peroxide 10 % topical cleanser RxNorm: 635636 Apply 1 Application Topical QD apply to face, wash rinse and dry once daily (may change to QOD if drying) 08/19/19 22 022 Inactive (%covered by insurance) #60ml refill 11 dx: acne benzoyl peroxide 10 % topical cleanser RxNorm: 936338 Apply 1 Application Topical QD apply to face, wash rinse and dry once daily (may change to QOD if drying) 08/19/19 22 022 Inactive (%covered by insurance) #60ml refill 11 dx: acne Lyrica 50 mg capsule RxNorm: 607331 Take 1 Capsule(s) Oral QAM every morning Take 1 capsule by mouth once daily 08/19/19 22 022 Inactive benzoyl peroxide 10 % topical cleanser RxNorm: 588712 Apply 1 Application Topical QD apply to face, wash rinse and dry once daily (may change to QOD if drying) 08/19/19 22 022 Inactive (%covered by insurance) #60ml refill 11 dx: acne Lyrica 100 mg capsule RxNorm: 189051 Take 1 Capsule(s) Oral QHS every night at bedtime Take 1 capsule by mouth once daily at bedtime 08/19/19 22 022 Inactive Lyrica 100 mg capsule RxNorm: 443868 Take 1 Capsule(s) Oral QHS every night at bedtime Take 1 capsule by mouth once daily at bedtime 08/16/19 22 022 Inactive Lyrica 50 mg capsule RxNorm: 370512 Take 1 Capsule(s) Oral QAM every morning Take 1 capsule by mouth once daily 08/16/19 22 022 Inactive Levemir FlexTouch U-100 Insulin 100 unit/mL (3 mL) subcutaneous pen RxNorm: 400034 Inject 86 Unit(s) Subcutaneous BID 08/05/19 22 022 Inactive d/c 83units BID Lyrica 100 mg capsule RxNorm: 846479 Take 1 Capsule(s) Oral QHS every night at bedtime Take 1 capsule by mouth once daily at bedtime 07/14/19 22 022 Inactive Lyrica 50 mg capsule RxNorm: 861817 Take 1 Capsule(s) Oral QAM every morning Take 1 capsule by mouth once daily 07/14/19 22 022 Inactive Levemir FlexTouch U-100 Insulin 100 unit/mL (3 mL) subcutaneous pen RxNorm: 526736 Inject 83 Unit(s) Subcutaneous BID 07/08/19 22 [...] 30 mg tablet,extended release 24 hr RxNorm: 314170 Take 1 Tablet(s) Oral QD 05/05/20 No Stop Date Active hydralazine 50 mg tablet RxNorm: 128774 Take 1 Tablet(s) Oral QID 05/05/20 21 022 Inactive venlafaxine ER 225 mg tablet,extended release 24 hr RxNorm: 215591 Take 1 Tablet(s) Oral QD 05/05/20 21 Inactive venlafaxine ER 225 mg tablet,extended release 24 hr RxNorm: 358064 Take 1 Tablet(s) Oral QD 05/05/20 022 Inactive hydralazine 50 mg tablet RxNorm: 507812 Take 1 Tablet(s) Oral QID 05/05/20 21 021 Inactive aspirin 81 mg tablet,delayed release RxNorm: 836490 Take 1 Tablet(s) Oral QD 03/31/20 022 Inactive Zetia 10 mg tablet RxNorm: 826041 Take 1 Tablet(s) Oral QD 03/31/20 Inactive Vitamin D2 1,250 mcg (50,000 unit) capsule RxNorm: 3886793 Take 1 Capsule(s) Oral QW once a week x 12 weeks 03/31/20 Inactive Vitamin D2 1,250 mcg (50,000 unit) capsule RxNorm: 0285369 Take 1 Capsule(s) Oral QW once a week 03/31/20 Inactive Zetia 10 mg tablet RxNorm: 597807 Take 1 Tablet(s) Oral QD 03/31/20 Inactive hydralazine 25 mg tablet RxNorm: 534258 Take 1 Tablet(s) Oral QID 03/31/20 21 021 Inactive hydralazine 25 mg tablet RxNorm: 576638 Take 1 Tablet(s) Oral QID 03/31/20 021 Inactive hydralazine 10 mg tablet RxNorm: 411807 Take 1 Tablet(s) Oral QID 03/03/20 021 Inactive cephalexin 500 mg tablet RxNorm: 574027 Take 1 Tablet(s) Oral QID 02/27/20 021 Inactive cephalexin 500 mg tablet RxNorm: 954643 Take 1 Tablet(s) Oral QID 02/27/20 21 021 Inactive lisinopril 40 mg tablet RxNorm: 688708 Take 1 Tablet(s) Oral QD 02/11/20 21 023 Inactive Eliquis 5 mg tablet RxNorm: 3898276 Take 1 Tablet(s) Oral BID 01/05/20 022 Inactive Eliquis 5 mg tablet RxNorm: 3416096 Take 2 Tablet(s) Oral QD 01/01/20 021 Inactive Lyrica 50 mg capsule RxNorm: 542222 Take 1 Capsule(s) Oral QAM every morning 12/24/19 021 Inactive Lyrica 100 mg capsule RxNorm: 233316 Take 1 Capsule(s) Oral QHS every night at bedtime 12/24/19 021 Inactive clotrimazole 1 % topical cream RxNorm: 615060 Apply to right foot and toes Topical BID 12/04/19 21 023 Inactive metoprolol succinate ER 200 mg tablet,extended release 24 hr RxNorm: 762126 Take 1 Tablet(s) Oral QD 12/04/19 023 Inactive ciprofloxacin 500 mg tablet RxNorm: 956978 Take 1 Tablet(s) Oral QD 11/30/19 021 Inactive DX ofloxacin otic drops Accu-Chek Guide test strips RxNorm: USE 1 TO CHECK GLUCOSE 4 TIMES DAILY AND NEEDED 11/15/19 023 Inactive Blood Glucose Test strips RxNorm: Use 1 Test Strip QID at PRN 11/05/19 21 023 Inactive E11.42 lisinopril 30 mg tablet RxNorm: 972862 Take 1 Tablet(s) Oral QD 10/30/19 021 Inactive lisinopril 20 mg tablet RxNorm: 190948 Take 1 Tablet(s) Oral QD 10/23/19 021 Inactive lisinopril 20 mg tablet RxNorm: 073195 Take 1 Tablet(s) Oral QD 10/23/19 021 Inactive lisinopril 10 mg tablet RxNorm: 708209 Take 1 Tablet(s) Oral QD 10/02/19 21 021 Inactive icosapent ethyl 1 gram capsule RxNorm: 5059904 Take 2 Capsule(s) (2 gm) Oral BID with meals 09/12/19 21 022 Inactive Okay to dispense one 2gm tab if you have that available. icosapent ethyl 1 gram capsule RxNorm: 3048406 Take 2 Capsule(s) Oral BID 09/12/19 21 021 Inactive Okay to dispense one 2gm tab if you have that available. amlodipine 10 mg tablet RxNorm: 409537 Take 1 Tablet(s) Oral QD 09/04/19 022 Inactive aspirin 81 mg tablet,delayed release RxNorm: 299096 Take 1 Tablet(s) Oral QD 09/04/19 021 Inactive Levemir FlexTouch U-100 Insulin 100 unit/mL (3 mL) subcutaneous pen RxNorm: 138552 Inject 150 Unit(s) Subcutaneous BID 09/04/19 022 Inactive venlafaxine ER 150 mg tablet,extended release 24 hr RxNorm: 658724 Take 1 Tablet(s) Oral QD 09/04/19 021 Inactive clotrimazole-betame thasone 1 %-0.05 % topical cream RxNorm: 307530 Apply to rash on red area on left abdomen/chest Topical BID 08/10/19 21 021 Inactive amlodipine 5 mg tablet RxNorm: 688345 Take 1 Tablet(s) Oral QD 07/31/19 021 Inactive cephalexin 500 mg tablet RxNorm: 269477 Take 1 Tablet(s) Oral BID BID - Twice Daily 07/31/19 021 Inactive Start 08/01/20 pantoprazole 40 mg tablet,delayed release RxNorm: 983875 Take 1 Tablet(s) Oral QAM every morning 07/08/19 022 Inactive senna 8.6 mg tablet RxNorm: 107798 Take 1 Tablet(s) Oral QD 07/08/19 022 Inactive pravastatin 80 mg tablet RxNorm: 644388 Take 1 Tablet(s) Oral QHS every night at bedtime 07/08/19 022 Inactive carbamazepine 200 mg tablet RxNorm: 264261 Take 1 Tablet(s) Oral BID 07/08/19 022 Inactive clopidogrel 75 mg tablet RxNorm: 608817 Take 1 Tablet(s) Oral QD 07/08/19 21 021 Inactive Blood Glucose Test strips RxNorm: Use 1 Test Strip QID at PRN 07/08/19 21 Inactive E11.42 Novolog Flexpen U-100 Insulin aspart 100 unit/mL (3 mL) subcutaneous RxNorm: 7646621 Administer per sliding scale Milliliter(s) Subcutaneous TID 151-200: 10 u; 201-250: 20 u; 251-300: 30 u; 301-350: 40 u; 351-400: 50 u. 07/08/19 21 022 Inactive lisinopril 5 mg tablet RxNorm: 937662 Take 1 Tablet(s) Oral QD 07/08/19 021 Inactive Novolog Flexpen U-100 Insulin aspart 100 unit/mL (3 mL) subcutaneous RxNorm: 3910994 Inject 85 Unit(s) Subcutaneous TID 07/08/19 022 Inactive clotrimazole 1 % topical cream RxNorm: 568642 Apply to bilateral groin areas Topical BID 07/08/19 21 022 Inactive metoprolol succinate ER 200 mg tablet,extended release 24 hr RxNorm: 390425 Take 1 Tablet(s) Oral QD 07/08/19 021 Inactive Vitamin D3 25 mcg (1,000 unit) tablet RxNorm: 210879 Take 1 Tablet(s) Oral QD 07/08/19 021 Inactive isosorbide dinitrate 30 mg tablet RxNorm: 235091 Take 1 Tablet(s) Oral QD 07/08/19 21 021 Inactive Levemir FlexTouch U-100 Insulin 100 unit/mL (3 mL) subcutaneous pen RxNorm: 416574 Inject 140 Unit(s) Subcutaneous BID 07/08/19 21 021 Inactive torsemide 20 mg tablet RxNorm: 139642 Take 1 Tablet(s) Oral QD 07/08/19 21 023 Inactive venlafaxine 75 mg tablet RxNorm: 598316 Take 1 Tablet(s) Oral QD 07/08/19 21 021 Inactive acetaminophen 500 mg tablet RxNorm: 581705 Take 1 Tablet(s) Oral TID as needed for headache 06/18/19 21 021 Inactive acetaminophen 500 mg tablet RxNorm: 318561 Take 1 Tablet(s) Oral TID as needed for headache 06/18/19 21 021 Inactive Lyrica 100 mg capsule RxNorm: 545339 Take 1 Capsule(s) Oral QHS every night at bedtime 06/11/19 21 021 Inactive Lyrica 50 mg capsule RxNorm: 611729 Take 1 Capsule(s) Oral QAM every morning 06/10/19 21 021 Inactive hydrocortisone 2.5 % topical cream RxNorm: 896016 Apply to bilateral groin creases Topical BID 05/15/20 20 021 Inactive clotrimazole 1 % topical cream RxNorm: 159495 Apply to bilateral groin areas Topical BID 05/15/20 20 021 Inactive Lyrica 50 mg capsule RxNorm: 518227 Take 1 Capsule(s) Oral QAM every morning 05/14/20 20 020 Inactive Lyrica 100 mg capsule RxNorm: 398630 Take 1 Capsule(s) Oral QHS every night [...] Inactive Nystop 100,000 unit/gram topical powder RxNorm: 490578 Apply to abd folds, under breasts and L side of groin Topical BID x 14 days, then BID PRN 04/08/20 20 Inactive dx: yeast dermatitis Lyrica 100 mg capsule RxNorm: 027691 Take 1 Capsule(s) Oral QHS every night at bedtime 03/13/20 20 Inactive Lyrica 50 mg capsule RxNorm: 191284 Take 1 Capsule(s) Oral QAM every morning 03/13/20 Inactive ketoconazole 2 % shampoo RxNorm: 463383 Apply Topical two times a week with showers 03/11/20 20 Inactive cholecalciferol (vitamin D3) 50 mcg (2,000 unit) tablet RxNorm: 954043 Take 1 Tablet(s) Oral QD 03/11/20 20 Inactive Zetia 10 mg tablet RxNorm: 414134 Take 1 Tablet(s) Oral QD 03/07/20 20 Inactive Zetia 10 mg tablet RxNorm: 182914 Take 1 Tablet(s) Oral QD 03/07/20 20 Inactive Lyrica 50 mg capsule RxNorm: 855814 Take 1 Capsule(s) Oral QAM every morning 02/15/20 20 Inactive Lyrica 100 mg capsule RxNorm: 160057 Take 1 Capsule(s) Oral QHS every night at bedtime 02/15/20 20 Inactive Lyrica 100 mg capsule RxNorm: 614868 Take 1 Capsule(s) Oral QHS every night at bedtime 02/15/20 20 Inactive Lyrica 50 mg capsule RxNorm: 886415 Take 1 Capsule(s) Oral QAM every morning 02/15/20 20 Inactive polyethylene glycol 3350 17 gram/dose oral powder RxNorm: 929071 Take 17=1 capful Gram(s) Oral BID as needed mix with 4-8oz of liquid 06/12/19 Active metoprolol succinate ER 200 mg tablet,extended release 24 hr RxNorm: 646451 Take 1 Tablet(s) Oral QD 08/12/19 Active loperamide 2 mg capsule RxNorm: 678441 Take 1 Capsule(s) Oral QID as needed 06/12/19 Active hydralazine 50 mg tablet RxNorm: 434960 Take 1 Tablet(s) Oral QID 08/12/19 23 Active venlafaxine ER 75 mg capsule,extended release 24 hr RxNorm: 437472 Take 3 Capsule(s) Oral QD 06/12/19 22 023 Inactive icosapent ethyl 1 gram capsule RxNorm: 4695501 Take 2 Capsule(s) (2 gm) Oral BID with meals 10/07/19 23 023 Inactive Okay to dispense one 2gm tab if you have that available. Levemir FlexTouch U-100 Insulin 100 unit/mL (3 mL) subcutaneous pen RxNorm: 773520 Inject 80 Unit(s) Subcutaneous BID 07/14/19 23 023 Inactive Novolog Flexpen U-100 Insulin aspart 100 unit/mL (3 mL) subcutaneous RxNorm: 2876889 Insert 30 Unit(s) Subcutaneous TID with meals [...] Complete Metabolic Panel (CMP) CMP Calcium (Ca) 94410-2 8.7 mg/dL 023 Unknown Complete Metabolic Panel [...] 023 Unknown Hemoglobin A1c HEMOGLOBA Hemoglobin A1c 32129-0 10.8 %A1c 023 Unknown Prostat Specific Antigen (PSA), Total PSA Prostate Specific Antigen (PSA), Total 75949-5 0.20 ng/mL 023 Unknown Vitamin D, 25-Hydroxy VITAD25 Vitamin D, 25-Hydroxy 10589-2 26 ng/mL 023 Unknown CBC with Differential [...] CBC with Differential / Platelets CBCDIFF MPV 90360-7 9.8 fL 023 Unknown CBC with Differential [...] Unknown Lipid Panel (LP) LIPIDPAN CHOLESTEROL, TOTAL 01172-1 244 mg/dL 023 Unknown Lipid Panel (LP) LIPIDPAN HDL CHOLESTEROL 2085-9 24.8 mg /dL 023 Unknown Lipid Panel (LP) LIPIDPAN TRIGLYCERIDES 2571-8 1637 mg/d L 023 Unknown Lipid Panel (LP) LIPIDPAN VLDL Cholestero l Calculated 327 023 Unknown PDFReport PDFReport PDFReport 023 Unknown SLUMS SLUMS 16399-4 not completed 023 Unknown PHQ9 PHQ9 44656-1 12 023 Unknown Procedures Procedure Codes Date SYS BP > OR = 140 CPT-4: G8753 02/02/2023 CUI BP LESS 90 CPT-4: G8754 02/02/2023 ADVNC CARE PLAN IN RCRD CPT-4: 1157F 02/03/20 23 FXNL STATUS ASSESSED CPT-4: 1170F 02/02/2023 AMNT PAIN NOTED NONE PRSNT CPT-4: 1126F 02/02 FALL RISK ASSESSMENT DOCD CPT-4: 3288F 2022 PPPS, SUBSEQ VISIT SNOMED CT: [id number] CPT-4: G0439 02/02/2023 POS CLIN DEPRES SCRN F/U DOC SNOMED CT: 50494216 CPT-4: G8431 02/02/2023 Vital Signs Date Vital 02/02/2023 Blood Pressure 1: 159/80 Code: 8480-6 Heart Rate 1: 78 bpm Code: 8867-4 Height: 5'5 Code: 8302-2 Respiratory Rate: 16 bpm Temperature: 36.4 (C) / 97.5 (F) Weight: Code: 3141-9 Reason For Visit No Reason For Visit data Encounters Encounter Performer Location Location Address Codes Date ([address]) Home or Residence Visit Est Pt - Moderate Level, 40 mins Diagnosis: Other correction (current) drug therapy[ICD10: Z79.899] Diagnosis: Encounter for [...] exam[ICD10: Z00.00] Diagnosis: Coronary artery disease involving [place] coronary artery of [place] heart, angina presence unspecified[ICD10: I25.10] Chelo Frostfeliberto [facility] [place] [address] [place] [id number] CPT-4: 22991 02/02/2023 Plan of Care Planned Activity Notes Codes Status Date Patient Education: Patient Medication Summary Completed 02/02/2023 Patient Education: Influenza Vaccine Completed 02/02/2023 Appointment: Sandar Clark WPtel: [address] [facility] 300 [id number] Telehealth Psych Follow Up 12/09 Appointment: Tapan Shirley WPtel: [address] [facility] 300 [id number] [facility] 10/26/2022 Referral: [facility] WPtel: [address], [address] [id number] [place] Referral Records Received 09/21/2022 Appointment: Tapan Shirley WPtel: [address] [place] F/U 08/11/2022 Appointment: Tapan Shirley WPtel: [address] [facility] 300 [id number] [place] F/U 07/14/2022 Appointment: Tapan Shirley WPtel: [address] [facility] 300 [id number] [place] F/U 02/10/2022 Referral: [facility] WPtel: [address] [id number] [place] Referral Completed 05/28/2021 Referral: General Cardiology Referral Complet ed 01/03/2021 Referral: General Psychologist Referral Close d Instructions Comment Date Leonid is a Male being seen living at [facility]. Initial BPS visit 01/2020. PMHx including DMII, CAD w/ 5 stents, Depression, Seizure Disorder and CKD stage 3. He moved into [facility] in 12/2019 but after a hospitalization 05/2021 he moved to the [facility] to have closer nursing attention. Sister Jyotsna involved in his care cell# [phone] Guardian: Giulia (tapan met in person 09/01/21), now has Lexii (same group as giulia)Lab Schedule: /September* 02/08/2023 Ischemic Heart Disease Angina stable. Continue close cardiology follow up. Diabetes Presents with no BG log to review. Requesting RNs fax to me. Lab order: CBC, BMP, A1c, Lipid panel Preventative Health Care Reviewed preventive health counseling, including: Regular exercise, Healthy diet/nutrition, Vision screening, Hearing screening Refusing CRC screening (both stool samples and colonoscopy) Labs: PSA and lipids . 02/02/2023
--- OUTSIDE RECORDS SUMMARY | 2023-02-18 19:14 | XMS_ITS | CCD ---
Author Name Sandra Clark CNP Address [address] [facility] [address] [facility] [address] [place] [address] Phone Organization [facility] Phone Care Team Providers Care Diagnostic Tech Name Role Phone Chelo Fonseca PA-C Primary Care Provider Unavaila ble Chelo Fonseca PA-C Chronic Care Management Nicole archer Summary Purpose DataExchange Insurance Providers Payer name Policy type / Coverage type Covered green party ID Effective Begin Date Effective End Date Medicare [place] Medicare Part B [id number] Unknown Unknown Medicaid [place] Medicare Part B [id number] Unknown Unknown Family history Sister Brittany Suggs [...] Detention 09/03/[address]: 7851338 Non-Smoker / No History of Smoking 09/02/[address]: 488393005 No Alcohol Consum ption 09/02/2020 Allergies, Adverse Reactions, Alerts Substance Reaction Codes Entered Date Inactivated Date Status LISINOPRIL RxNorm: 07872 02/12/2020 No Inactive Da te Active Metformin HCl Unknown 02/12/2020 No Inactive Cristiano e Active Problems Condition Codes Effective Dates Condition St atus Annual physical exam ICD-10: Z00.00 ICD-9: V70.0 02/02/2023 Active Coronary artery disease invo [place]ving [place] coronary artery of [place] heart, angina presence unspecified ICD-10: I25.10 ICD-9: 414.01 02/02/2023 Active Encounter for other specifie d special examinations ICD-10: Z01.89 ICD-9: V72.85 02/02/2023 Active Encounter for screening for nutritional disorder ICD-10: Z13.21 ICD-9: V77.99 02/02/2023 Active Hyperlipidemia associated wi th type 2 diabetes mellitus ICD-10: E11.69 ICD-9: 250.80 02/02/2023 Active Other skilled nursing (current) dr dinesh therapy ICD-10: Z79.899 ICD-9: [...] immunization ICD-10: Z23 ICD-9: V03.89 02/10/2022 Resolved [facility] (current) use of insulin ICD-10: Z79.4 02/10 [...] Fill Instructions pregabalin 150 mg capsule RxNorm: 727708 Take 1 Capsule(s) Oral HS at bed time 02/19/20 23 023 Active pregabalin 100 mg capsule RxNorm: 114050 Take 1 Capsule(s) Oral QAM every morning 02/18/20 23 024 Active FreeStyle Chema 2 Sensor kit RxNorm: use as directed 02/04/20 23 024 Active venlafaxine ER 75 mg capsule,extended release 24 hr RxNorm: 900644 Take 3 Capsule(s) Oral QD 02/04/20 23 023 Inactive FreeStyle Chema 2 Sensor kit RxNorm: use as directed 02/04/20 23 023 Inactive fluconazole 150 mg tablet RxNorm: 454714 Take 1 Tablet(s) Oral on day 3 and on day 6 02/03/20 024 Active chlorthalidone 25 mg tablet RxNorm: 342090 Take 1 Tablet(s) Oral QAM every morning 02/03/20 23 No Stop Date Active venlafaxine ER 150 mg capsule,extended release 24 hr RxNorm: 735795 Take 1 Capsule(s) Oral QD 02/03/20 23 023 Inactive acetaminophen 500 mg tablet RxNorm: 721240 1 TABLET ORALLY 3 TIMES DAILY (MAX APAP:4GM/24HR) 12/15/19 23 024 Active potassium chloride ER 20 mEq tablet,extended release RxNorm: 451205 Take 1 Tablet(s) Oral BID 12/09/19 23 023 Active d/c 20mEq once daily (sent from hospital) clotrimazole 1 % topical cream RxNorm: 196051 apply 1g topically to top of feet and in between toes BID 12/09/19 23 023 Active nystatin 100,000 unit/gram topical powder RxNorm: 003892 APPLY TO AFFECTED AREAS TOPICALLY 2 TIMES DAILY 11/21/19 23 024 Active Nystop 100,000 unit/gram topical powder RxNorm: 471157 Apply to abd folds, under breasts and L side of groin Topical BID x 14 days, then BID PRN 11/20/19 23 023 Inactive dx: yeast dermatitis [place] Ultra Strength 4 %-30 %-10 % topical cream RxNorm: 822123 Apply 1 Gram(s) Topical QID PRN to feet and legs for neuropathic pain 11/11/19 024 Active hydrocortisone 2.5 % topical cream RxNorm: 171669 Apply 1/2 Gram(s) Topical BID as needed 11/10/19 No Stop Date Active clotrimazole 1 % topical cream RxNorm: 806300 Apply 1/2 Gram(s) Topical BID Apply to affected areas of groin, periarea, and abdominal topically 2 times daily 11/10/19 023 Inactive Levemir FlexPen 100 unit/mL (3 mL) solution subcutaneous insulin pen RxNorm: 743601 Inject 30 Unit(s) Subcutaneous BID 10/07/19 024 Active Humulin R U-500 (Concentrated) Insulin 500 unit/mL subcutaneous soln RxNorm: 843865 Inject 100 Unit(s) Subcutaneous TID 10/07/19 024 Active Ozempic 0.25 mg or 0.5 mg (2 mg/3 mL) subcutaneous pen injector RxNorm: 7212789 Inject 1/2 Milligram(s) Subcutaneous QW once a week 10/07/19 024 Active aripiprazole 15 mg tablet RxNorm: 602298 1/2 TAB (7.5MG) ORALLY DAILY (DX:MAJOR DEPRESSIVE DISORDER) 09/23/19 023 Active Accu-Chek Guide test strips RxNorm: Use 1 Test Strip QID 09/15/19 23 024 Active ok to substitute with any covered alternative test strip Lancets,Thin 28 gauge RxNorm: Use 1 as directed QID 09/15/19 23 024 Active torsemide 20 mg tablet RxNorm: 632252 Take 1 Tablet(s) Oral BID 09/09/19 23 024 Active d/c once daily dosing carvedilol 25 mg tablet RxNorm: 833968 Take 1 Tablet(s) Oral QD 08/25/19 23 024 Active pregabalin 150 mg capsule RxNorm: 784133 1 Capsule(s) Oral HS at bed time 08/18/19 023 Inactive pregabalin 100 mg capsule RxNorm: 546600 1 Capsule(s) Oral QAM every morning 08/18/19 23 023 Inactive carvedilol 25 mg tablet RxNorm: 169371 1 Tablet(s) Oral QD 07/28/19 23 023 Inactive lisinopril 20 mg tablet RxNorm: 634832 Give 1 Tablet(s) Oral QD 07/28/19 23 023 Inactive Lyrica 150 mg capsule RxNorm: 075901 Take 1 Capsule(s) Oral QHS every night at bedtime 07/19/19 023 Inactive d/c 100mg dose Diflucan 150 mg tablet RxNorm: 407410 Take 1 Tablet(s) Oral QD repeat on day 3 and 6 07/19/19 023 Inactive pregabalin 100 mg capsule RxNorm: 307310 Take 1 Capsule(s) Oral QAM every morning 07/19/19 023 Inactive gatifloxacin 0.5 % eye drops RxNorm: 365897 Instill 1 Drop(s) as directed TID Instill 1 drop in to affected eye(s) starting 1 day prior to surgery and continue until gone (do not exceed 4 weeks). 07/13/19 23 023 Inactive carvedilol 25 mg tablet RxNorm: 438660 2 Tablet(s) Oral BID 07/13/19 023 Inactive Humulin R Regular U-100 Insulin 100 unit/mL injection solution RxNorm: 981545 85 Unit(s) Injection TID 07/13/19 23 023 Inactive ketorolac 0.5 % eye drops RxNorm: 419226 Instill 1 Drop(s) as directed QID Instill 1 drop into affected eye(s) 4 times daily starting 1 day prior to surgery and continue until gone (do not exceed 4 weeks). 07/13/19 23 023 Inactive Diflucan 150 mg tablet RxNorm: 920560 Take 1 Tablet(s) Oral QD repeat on day 3 and 6 06/30/19 23 023 Inactive Accu-Chek Guide test strips RxNorm: Use 1 Test Strip QID Use 1 test strip to monitor blood glucose 4 times daily and as needed. Dx:E11.42. 06/23/19 23 023 Inactive ok to substitute with any covered alternative test strip dextromethorphan-gu aifenesin 10 mg-100 mg/5 mL oral liquid RxNorm: 145604 Take 10 Milliliter(s) Oral every 4 hours as needed for cough 06/19/19 23 023 Inactive dextromethorphan-gu aifenesin 10 mg-100 mg/5 mL oral liquid RxNorm: 103210 Take 10 Milliliter(s) Oral every 4 hours as needed for cough 06/19/19 023 Inactive Lyrica 150 mg capsule RxNorm: 684106 Take 1 Capsule(s) Oral QHS every night at bedtime 06/18/19 023 Inactive d/c 100mg dose aripiprazole 15 mg tablet RxNorm: 776778 1/2 TAB (7.5MG) ORALLY DAILY (DX:MAJOR DEPRESSIVE DISORDER) 06/05/19 023 Inactive pregabalin 100 mg capsule RxNorm: 186801 1 Capsule(s) Oral QAM every morning 06/02/19 23 023 Inactive Banophen 50 mg capsule RxNorm: 5008156 Take 1 Capsule(s) Oral Q6H every 6 hours as needed 05/19/19 23 No Stop Date Active Novolog Flexpen U-100 Insulin aspart 100 unit/mL (3 mL) subcutaneous RxNorm: 1533675 Inject 10 Unit(s) Subcutaneous QHS every night at bedtime with nighttime snack 04/08/20 022 Inactive Novolog Flexpen U-100 Insulin aspart 100 unit/mL (3 mL) subcutaneous RxNorm: 2765419 Inject 42 Unit(s) Subcutaneous TID in addition to sliding scale 04/08/20 022 Inactive d/c 36u albuterol sulfate HFA 90 mcg/actuation aerosol inhaler RxNorm: 9289022 Take 2 Puff(s) Inhalation Q4H every four hours as needed as needed for SOB, cough, or wheezing 04/07/20 22 030 Active Banophen 50 mg capsule RxNorm: 3350803 Take 1 Capsule(s) Oral Q6H every 6 hours as needed 04/06/20 22 023 Inactive diphenhydramine 50 mg tablet RxNorm: 8749962 Take 1 Tablet(s) Oral Q6H every 6 hours as needed 04/06/20 22 022 Inactive diphenhydramine 50 mg tablet RxNorm: 5132982 1 Tablet(s) Oral Q6H every 6 hours as needed 04/06/20 22 022 Inactive Abilify 15 mg tablet RxNorm: 362042 1/2 Tablet(s) Oral QD 03/10/20 023 Inactive Shingrix (PF) 50 mcg/0.5 mL intramuscular suspension, kit RxNorm: 6457307 Administer 1/2 Milliliter(s) Intramuscular QD one time shingrix step 2 ( step 1 given 11/04/21) WITH needle - Nursing please administer upon arrival and once administered post a bridge message 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, 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, expiration date, and lot# so we can update [facility] 02/18/20 22 022 Inactive dispense with needle Shingrix (PF) 50 mcg/0.5 mL intramuscular suspension, kit RxNorm: 5297159 Administer 1/2 Milliliter(s) Intramuscular QD one time shingrix step 2 ( step 1 given 11/04/21) WITH needle - Nursing please administer upon arrival and once administered post a bridge message with 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, 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, expiration date, and lot# so we can update [facility] 02/18/20 22 022 Inactive dispense with needle polyethylene glycol 3350 17 gram/dose oral powder RxNorm: 160804 Take 17=1 capful Gram(s) Oral QD mix with 4-8oz of liquid 01/08/20 22 023 Inactive take this in addition to BID prn order Lyrica 100 mg capsule RxNorm: 831619 Take 1 Capsule(s) Oral QAM every morning 01/08/20 22 022 Inactive d/c 50mg dose acetaminophen 500 mg tablet RxNorm: 356683 Take 1 Tablet(s) Oral TID 01/08/20 22 022 Inactive d/c PRN order Lyrica 150 mg capsule RxNorm: 849632 Take 1 Capsule(s) Oral QHS every night at bedtime 01/08/20 22 023 Inactive d/c 100mg dose Abilify 5 mg tablet RxNorm: 761016 Take 1 Tablet(s) Oral QD take 1 tab po QD #30 refill 5 dx: MDD 12/12/19 22 022 Inactive Abilify 5 mg tablet RxNorm: 293250 Take 1 Tablet(s) Oral QD take 1 tab po QD #30 refill 5 dx: MDD 12/12/19 22 022 Inactive Novolog Flexpen U-100 Insulin aspart 100 unit/mL (3 mL) subcutaneous RxNorm: 1647392 Inject 42 Unit(s) Subcutaneous TID in addition to sliding scale 12/10/19 22 022 Inactive d/c 36u chlorthalidone 25 mg tablet RxNorm: 910638 Take 1 Tablet(s) Oral QAM every morning 12/10/19 22 023 Inactive pregabalin 50 mg capsule RxNorm: 417261 Take 1 Capsule(s) Oral QAM every morning 11/12/19 22 022 Inactive tetanus-diphtheria toxoids-Td 2 Lf unit-2 Lf unit/0.5 mL IM suspension RxNorm: 139 Take 0.5 Miscellaneous Intramuscular 11/12/19 22 022 Inactive need tdap - nursing to administer upon arrival pregabalin 50 mg capsule RxNorm: 336731 Take 1 Capsule(s) Oral QAM every morning 10/16/19 22 022 Inactive pregabalin 50 mg capsule RxNorm: 307068 Take 1 Capsule(s) Oral QAM every morning 10/16/19 22 022 Inactive pregabalin 50 mg capsule RxNorm: 098754 1 Capsule(s) Oral QAM every morning 10/15/19 22 022 Inactive Shingrix (PF) 50 mcg/0.5 mL intramuscular suspension, kit RxNorm: 6174814 Administer 1/2 Milliliter(s) Intramuscular one time Nursing please administer upon arrival and once administered post a bridge message with date of administration, 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 10/09/19 22 022 Inactive shingrix step 1 cholecalciferol (vitamin D3) 1,250 mcg (50,000 unit) capsule RxNorm: 782647 Take 1 Capsule(s) Oral QW once a [...] aspart 100 unit/mL (3 mL) subcutaneous RxNorm: 6457040 Inject 10 Unit(s) Subcutaneous QHS every night at bedtime with nighttime snack 10/08/19 22 Inactive Shingrix (PF) 50 mcg/0.5 mL intramuscular suspension, kit RxNorm: 7626414 ADMINISTER 2-DOSE SERIES PER CDC GUIDELINES 10/08/19 22 022 Active Shingrix (PF) 50 mcg/0.5 mL intramuscular suspension, kit RxNorm: 0653476 ADMINISTER 2-DOSE SERIES PER CDC GUIDELINES 10/08/19 22 022 Inactive Novolog Flexpen U-100 Insulin aspart 100 unit/mL (3 mL) subcutaneous RxNorm: 4860323 Inject 36 Unit(s) Subcutaneous TID in addition to sliding scale 10/08/19 22 Inactive Novofine Autocover 30 gauge x 1/3 needle RxNorm: Use 1 Miscellaneous UD as directed Use 1 needle as directed to administer insulin 5 times a day Dx:E11.42. 10/03/19 22 Inactive ok to substitute with any covered alternative pen needle benzoyl peroxide 10 % topical cleanser RxNorm: 060351 Apply 1 Application Topical QD apply to face, wash rinse and dry once daily (may change to QOD if drying) 08/19/19 22 022 Inactive (%covered by insurance) #60ml refill 11 dx: acne benzoyl peroxide 10 % topical cleanser RxNorm: 568091 Apply 1 Application Topical QD apply to face, wash rinse and dry once daily (may change to QOD if drying) 08/19/19 22 022 Inactive (%covered by insurance) #60ml refill 11 dx: acne benzoyl peroxide 10 % topical cleanser RxNorm: 994419 Apply 1 Application Topical QD apply to face, wash rinse and dry once daily (may change to QOD if drying) 08/19/19 022 Inactive (%covered by insurance) #60ml refill 11 dx: acne Lyrica 50 mg capsule RxNorm: 181125 Take 1 Capsule(s) Oral QAM every morning Take 1 capsule by mouth once daily 08/19/19 022 Inactive benzoyl peroxide 10 % topical cleanser RxNorm: 792539 Apply 1 Application Topical QD apply to face, wash rinse and dry once daily (may change to QOD if drying) 08/19/19 22 022 Inactive (%covered by insurance) #60ml refill 11 dx: acne Lyrica 100 mg capsule RxNorm: 705993 Take 1 Capsule(s) Oral QHS every night at bedtime Take 1 capsule by mouth once daily at bedtime 08/19/19 22 022 Inactive Lyrica 100 mg capsule RxNorm: 521905 Take 1 Capsule(s) Oral QHS every night at bedtime Take 1 capsule by mouth once daily at bedtime 08/16/19 22 Inactive Lyrica 50 mg capsule RxNorm: 049239 Take 1 Capsule(s) Oral QAM every morning Take 1 capsule by mouth once daily 08/16/19 22 022 Inactive Levemir FlexTouch U-100 Insulin 100 unit/mL (3 mL) subcutaneous pen RxNorm: 881878 Inject 86 Unit(s) Subcutaneous BID 08/05/19 22 022 Inactive d/c 83units BID Lyrica 100 mg capsule RxNorm: 311682 Take 1 Capsule(s) Oral QHS every night at bedtime Take 1 capsule by mouth once daily at bedtime 07/14/19 22 Inactive Lyrica 50 mg capsule RxNorm: 261713 Take 1 Capsule(s) Oral QAM every morning Take 1 capsule by mouth once daily 07/14/19 22 022 Inactive Levemir FlexTouch U-100 Insulin 100 unit/mL (3 mL) subcutaneous pen RxNorm: 811695 Inject 83 Unit(s) Subcutaneous BID 07/08/19 22 [...] 30 mg tablet,extended release 24 hr RxNorm: 231580 Take 1 Tablet(s) Oral QD 05/05/20 No Stop Date Active hydralazine 50 mg tablet RxNorm: 943645 Take 1 Tablet(s) Oral QID 05/05/20 Inactive venlafaxine ER 225 mg tablet,extended release 24 hr RxNorm: 773148 Take 1 Tablet(s) Oral QD 05/05/20 Inactive venlafaxine ER 225 mg tablet,extended release 24 hr RxNorm: 224989 Take 1 Tablet(s) Oral QD 05/05/20 022 Inactive hydralazine 50 mg tablet RxNorm: 542164 Take 1 Tablet(s) Oral QID 05/05/20 Inactive aspirin 81 mg tablet,delayed release RxNorm: 904310 Take 1 Tablet(s) Oral QD 03/31/20 Inactive Zetia 10 mg tablet RxNorm: 841918 Take 1 Tablet(s) Oral QD 03/31/20 Inactive Vitamin D2 1,250 mcg (50,000 unit) capsule RxNorm: 5517729 Take 1 Capsule(s) Oral QW once a week x 12 weeks 03/31/20 022 Inactive Vitamin D2 1,250 mcg (50,000 unit) capsule RxNorm: 3287747 Take 1 Capsule(s) Oral QW once a week 03/31/20 Inactive Zetia 10 mg tablet RxNorm: 208611 Take 1 Tablet(s) Oral QD 03/31/20 Inactive hydralazine 25 mg tablet RxNorm: 304541 Take 1 Tablet(s) Oral QID 03/31/20 021 Inactive hydralazine 25 mg tablet RxNorm: 419993 Take 1 Tablet(s) Oral QID 03/31/20 021 Inactive hydralazine 10 mg tablet RxNorm: 067245 Take 1 Tablet(s) Oral QID 03/03/20 021 Inactive cephalexin 500 mg tablet RxNorm: 081125 Take 1 Tablet(s) Oral QID 02/27/20 021 Inactive cephalexin 500 mg tablet RxNorm: 411247 Take 1 Tablet(s) Oral QID 02/27/20 021 Inactive lisinopril 40 mg tablet RxNorm: 392649 Take 1 Tablet(s) Oral QD 02/11/20 023 Inactive Eliquis 5 mg tablet RxNorm: 9474353 Take 1 Tablet(s) Oral BID 01/05/20 21 022 Inactive Eliquis 5 mg tablet RxNorm: 5485014 Take 2 Tablet(s) Oral QD 01/01/20 21 021 Inactive Lyrica 50 mg capsule RxNorm: 206447 Take 1 Capsule(s) Oral QAM every morning 12/24/19 021 Inactive Lyrica 100 mg capsule RxNorm: 125552 Take 1 Capsule(s) Oral QHS every night at bedtime 12/24/19 021 Inactive clotrimazole 1 % topical cream RxNorm: 112144 Apply to right foot and toes Topical BID 12/04/19 21 023 Inactive metoprolol succinate ER 200 mg tablet,extended release 24 hr RxNorm: 234866 Take 1 Tablet(s) Oral QD 12/04/19 21 023 Inactive ciprofloxacin 500 mg tablet RxNorm: 801113 Take 1 Tablet(s) Oral QD 11/30/19 21 021 Inactive DX ofloxacin otic drops Accu-Chek Guide test strips RxNorm: USE 1 TO CHECK GLUCOSE 4 TIMES DAILY AND NEEDED 11/15/19 21 023 Inactive Blood Glucose Test strips RxNorm: Use 1 Test Strip QID at PRN 11/05/19 21 023 Inactive E11.42 lisinopril 30 mg tablet RxNorm: 070907 Take 1 Tablet(s) Oral QD 10/30/19 Inactive lisinopril 20 mg tablet RxNorm: 170091 Take 1 Tablet(s) Oral QD 10/23/19 21 Inactive lisinopril 20 mg tablet RxNorm: 525250 Take 1 Tablet(s) Oral QD 10/23/19 21 Inactive lisinopril 10 mg tablet RxNorm: 877617 Take 1 Tablet(s) Oral QD 10/02/19 021 Inactive icosapent ethyl 1 gram capsule RxNorm: 4069099 Take 2 Capsule(s) (2 gm) Oral BID with meals 09/12/19 022 Inactive Okay to dispense one 2gm tab if you have that available. icosapent ethyl 1 gram capsule RxNorm: 5087916 Take 2 Capsule(s) Oral BID 09/12/19 021 Inactive Okay to dispense one 2gm tab if you have that available. amlodipine 10 mg tablet RxNorm: 663274 Take 1 Tablet(s) Oral QD 09/04/19 022 Inactive aspirin 81 mg tablet,delayed release RxNorm: 952051 Take 1 Tablet(s) Oral QD 09/04/19 Inactive Levemir FlexTouch U-100 Insulin 100 unit/mL (3 mL) subcutaneous pen RxNorm: 647451 Inject 150 Unit(s) Subcutaneous BID 09/04/19 022 Inactive venlafaxine ER 150 mg tablet,extended release 24 hr RxNorm: 612231 Take 1 Tablet(s) Oral QD 09/04/19 021 Inactive clotrimazole-betame thasone 1 %-0.05 % topical cream RxNorm: 190865 Apply to rash on red area on left abdomen/chest Topical BID 08/10/19 21 021 Inactive amlodipine 5 mg tablet RxNorm: 546097 Take 1 Tablet(s) Oral QD 07/31/19 21 021 Inactive cephalexin 500 mg tablet RxNorm: 636503 Take 1 Tablet(s) Oral BID BID - Twice Daily 07/31/19 21 021 Inactive Start 08/01/20 pantoprazole 40 mg tablet,delayed release RxNorm: 017585 Take 1 Tablet(s) Oral QAM every morning 07/08/19 Inactive senna 8.6 mg tablet RxNorm: 827524 Take 1 Tablet(s) Oral QD 07/08/19 Inactive pravastatin 80 mg tablet RxNorm: 272574 Take 1 Tablet(s) Oral QHS every night at bedtime 07/08/19 Inactive carbamazepine 200 mg tablet RxNorm: 231294 Take 1 Tablet(s) Oral BID 07/08/19 Inactive clopidogrel 75 mg tablet RxNorm: 847351 Take 1 Tablet(s) Oral QD 07/08/19 Inactive Blood Glucose Test strips RxNorm: Use 1 Test Strip QID at PRN 07/08/19 Inactive E11.42 Novolog Flexpen U-100 Insulin aspart 100 unit/mL (3 mL) subcutaneous RxNorm: 2073650 Administer per sliding scale Milliliter(s) Subcutaneous TID 151-200: 10 u; 201-250: 20 u; 251-300: 30 u; 301-350: 40 u; 351-400: 50 u. 07/08/19 21 Inactive lisinopril 5 mg tablet RxNorm: 711878 Take 1 Tablet(s) Oral QD 07/08/19 Inactive Novolog Flexpen U-100 Insulin aspart 100 unit/mL (3 mL) subcutaneous RxNorm: 8046174 Inject 85 Unit(s) Subcutaneous TID 07/08/19 022 Inactive clotrimazole 1 % topical cream RxNorm: 265077 Apply to bilateral groin areas Topical BID 07/08/19 Inactive metoprolol succinate ER 200 mg tablet,extended release 24 hr RxNorm: 002561 Take 1 Tablet(s) Oral QD 07/08/19 Inactive Vitamin D3 25 mcg (1,000 unit) tablet RxNorm: 066805 Take 1 Tablet(s) Oral QD 07/08/19 21 021 Inactive isosorbide dinitrate 30 mg tablet RxNorm: 672408 Take 1 Tablet(s) Oral QD 07/08/19 021 Inactive Levemir FlexTouch U-100 Insulin 100 unit/mL (3 mL) subcutaneous pen RxNorm: 489027 Inject 140 Unit(s) Subcutaneous BID 07/08/19 21 021 Inactive torsemide 20 mg tablet RxNorm: 706446 Take 1 Tablet(s) Oral QD 07/08/19 21 023 Inactive venlafaxine 75 mg tablet RxNorm: 026368 Take 1 Tablet(s) Oral QD 07/08/19 021 Inactive acetaminophen 500 mg tablet RxNorm: 615055 Take 1 Tablet(s) Oral TID as needed for headache 06/18/19 Inactive acetaminophen 500 mg tablet RxNorm: 121899 Take 1 Tablet(s) Oral TID as needed for headache 06/18/19 021 Inactive Lyrica 100 mg capsule RxNorm: 133593 Take 1 Capsule(s) Oral QHS every night at bedtime 06/11/19 021 Inactive Lyrica 50 mg capsule RxNorm: 829588 Take 1 Capsule(s) Oral QAM every morning 06/10/19 21 021 Inactive hydrocortisone 2.5 % topical cream RxNorm: 273834 Apply to bilateral groin creases Topical BID 05/15/20 20 021 Inactive clotrimazole 1 % topical cream RxNorm: 353068 Apply to bilateral groin areas Topical BID 05/15/20 20 021 Inactive Lyrica 50 mg capsule RxNorm: 501602 Take 1 Capsule(s) Oral QAM every morning 05/14/20 20 020 Inactive Lyrica 100 mg capsule RxNorm: 316368 Take 1 Capsule(s) Oral QHS every night [...] Inactive Nystop 100,000 unit/gram topical powder RxNorm: 989237 Apply to abd folds, under breasts and L side of groin Topical BID x 14 days, then BID PRN 04/08/20 20 Inactive dx: yeast dermatitis Lyrica 100 mg capsule RxNorm: 304048 Take 1 Capsule(s) Oral QHS every night at bedtime 03/13/20 20 Inactive Lyrica 50 mg capsule RxNorm: 067014 Take 1 Capsule(s) Oral QAM every morning 03/13/20 20 Inactive ketoconazole 2 % shampoo RxNorm: 321917 Apply Topical two times a week with showers 03/11/20 20 Inactive cholecalciferol (vitamin D3) 50 mcg (2,000 unit) tablet RxNorm: 044458 Take 1 Tablet(s) Oral QD 03/11/20 20 021 Inactive Zetia 10 mg tablet RxNorm: 654731 Take 1 Tablet(s) Oral QD 03/07/20 20 021 Inactive Zetia 10 mg tablet RxNorm: 958757 Take 1 Tablet(s) Oral QD 03/07/20 20 Inactive Lyrica 50 mg capsule RxNorm: 250655 Take 1 Capsule(s) Oral QAM every morning 02/15/20 20 Inactive Lyrica 100 mg capsule RxNorm: 580313 Take 1 Capsule(s) Oral QHS every night at bedtime 02/15/20 20 10/01/2 020 Inactive Lyrica 100 mg capsule RxNorm: 573164 Take 1 Capsule(s) Oral QHS every night at bedtime 02/15/20 20 020 Inactive Lyrica 50 mg capsule RxNorm: 558840 Take 1 Capsule(s) Oral QAM every morning 02/15/20 20 020 Inactive polyethylene glycol 3350 17 gram/dose oral powder RxNorm: 282753 Take 17=1 capful Gram(s) Oral BID as needed mix with 4-8oz of liquid 06/12/19 22 Active metoprolol succinate ER 200 mg tablet,extended release 24 hr RxNorm: 561158 Take 1 Tablet(s) Oral QD 08/12/19 23 Active loperamide 2 mg capsule RxNorm: 492229 Take 1 Capsule(s) Oral QID as needed 06/12/19 22 Active hydralazine 50 mg tablet RxNorm: 925804 Take 1 Tablet(s) Oral QID 08/12/19 23 Active venlafaxine ER 75 mg capsule,extended release 24 hr RxNorm: 655905 Take 3 Capsule(s) Oral QD 06/12/19 22 023 Inactive icosapent ethyl 1 gram capsule RxNorm: 2909371 Take 2 Capsule(s) (2 gm) Oral BID with meals 10/07/19 23 023 Inactive Okay to dispense one 2gm tab if you have that available. Levemir FlexTouch U-100 Insulin 100 unit/mL (3 mL) subcutaneous pen RxNorm: 295584 Inject 80 Unit(s) Subcutaneous BID 07/14/19 23 023 Inactive Novolog Flexpen U-100 Insulin aspart 100 unit/mL (3 mL) subcutaneous RxNorm: 7691782 Insert 30 Unit(s) Subcutaneous TID with meals [...] Date Patient Education: Patient Medication Summary Completed 02/18/2023 Patient Education: Influenza Vaccine Completed 02/18/2023 Appointment: Sandra Clark WPtel: [address] [facility] [address] [id number] Telehealth Psych Follow Up 12/09 Appointment: Tapan Shirley WPtel: [address] [facility] [address] [id number] [facility] 10/26/2022 Referral: [facility] WPtel: [phone], [address] [id number] [place] Referral Records Received 09/21/2022 Appointment: Tapan Shirley WPtel: [id number] [place] F/U 08/11/2022 Appointment: Tapan Shirley WPtel: [address] [facility] 300 [id number] [place] F/U 07/14/2022 Appointment: Tapan Shirley WPtel: [address] [facility] 300 [id number] [place] F/U 02/10/2022 Referral: [facility] WPtel: [address] [id number] [place] Referral Completed 05/28/2021 Referral: General Cardiology Referral Complet ed 01/03/2021 Referral: General Psychologist Referral Close d Instructions Comment Date Leonid is a Male being seen living at [facility]. Initial BPS visit 01/2020. PMHx including DMII, CAD w/ 5 stents, Depression, Seizure Disorder and CKD stage 3. He moved into [facility] in 12/2019 but after a hospitalization 05/2021 he moved to the [facility] to have closer nursing attention. Sister Jyotsna involved in his care cell# [phone] Guardian: Giulia (tapan met in person 09/01/21), now has Lexii (same group as giulia)Lab Schedule: * 02/08/2023
--- OUTSIDE RECORDS SUMMARY | 2023-02-18 19:14 | XMS_ITS | CCD ---
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 Application Systems Engineer Name Role Phone Chelo Fonseca PA-C Primary Care Provider Unavaila ble Chelo Fonseca PA-C Chronic Care Management Nicole archer Summary Purpose DataExchange Insurance Providers Payer name Policy type / Coverage type Covered green party ID Effective Begin Date Effective End Date [place] [id number] [place] [id number] Unknown Unknown Family history Sister Brittany Suggs [...] Custodial 09/03/[address]: 4447608 Non-Smoker / No History of Smoking 09/02/[address]: [id number] No Alcohol Consum ption 09/02/2020 Allergies, Adverse Reactions, Alerts Substance Reaction Codes Entered Date Inactivated Date Status LISINOPRIL RxNorm: 39916 02/12/2020 No Inactive Da te Active Metformin HCl Unknown 02/12/2020 No Inactive Cristiano e Active Problems Condition Codes Effective Dates Condition St atus Annual physical exam ICD-10: Z00.00 ICD-9: V70.0 02/02/2023 Active Coronary artery disease invo lving [place] coronary artery of [place] heart, angina presence unspecified ICD-10: I25.10 ICD-9: 414.01 02/02/2023 Active Encounter for other specifie d special examinations ICD-10: Z01.89 ICD-9: V72.85 02/02/2023 Active Encounter for screening for nutritional disorder ICD-10: Z13.21 ICD-9: V77.99 02/02/2023 Active Hyperlipidemia associated wi th type 2 diabetes mellitus ICD-10: E11.69 ICD-9: 250.80 02/02/2023 Active 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 ICD-10: Z79.899 ICD-9: [...] Fill Instructions pregabalin 150 mg capsule RxNorm: 075198 Take 1 Capsule(s) Oral HS at bed time 02/19/20 23 023 Active pregabalin 100 mg capsule RxNorm: 151772 Take 1 Capsule(s) Oral QAM every morning 02/18/20 23 024 Active FreeStyle Chema 2 Sensor kit RxNorm: use as directed 02/04/20 23 024 Active venlafaxine ER 75 mg capsule,extended release 24 hr RxNorm: 720991 Take 3 Capsule(s) Oral QD 02/04/20 23 023 Inactive FreeStyle Chema 2 Sensor kit RxNorm: use as directed 02/04/20 23 023 Inactive fluconazole 150 mg tablet RxNorm: 003324 Take 1 Tablet(s) Oral on day 3 and on day 6 02/03/20 23 024 Active chlorthalidone 25 mg tablet RxNorm: 029900 Take 1 Tablet(s) Oral QAM every morning 02/03/20 23 No Stop Date Active venlafaxine ER 150 mg capsule,extended release 24 hr RxNorm: 170462 Take 1 Capsule(s) Oral QD 02/03/20 23 023 Inactive acetaminophen 500 mg tablet RxNorm: 792963 1 TABLET ORALLY 3 TIMES DAILY (MAX APAP:4GM/24HR) 12/15/19 23 024 Active potassium chloride ER 20 mEq tablet,extended release RxNorm: 636891 Take 1 Tablet(s) Oral BID 12/09/19 23 023 Active d/c 20mEq once daily (sent from hospital) clotrimazole 1 % topical cream RxNorm: 289587 apply 1g topically to top of feet and in between toes BID 12/09/19 23 023 Active nystatin 100,000 unit/gram topical powder RxNorm: 831878 APPLY TO AFFECTED AREAS TOPICALLY 2 TIMES DAILY 11/21/19 23 024 Active Nystop 100,000 unit/gram topical powder RxNorm: 519263 Apply to abd folds, under breasts and L side of groin Topical BID x 14 days, then BID PRN 11/20/19 23 023 Inactive dx: yeast dermatitis [place] Ultra Strength 4 %-30 %-10 % topical cream RxNorm: 382104 Apply 1 Gram(s) Topical QID PRN to feet and legs for neuropathic pain 11/11/19 23 024 Active hydrocortisone 2.5 % topical cream RxNorm: 965972 Apply 1/2 Gram(s) Topical BID as needed 11/10/19 No Stop Date Active clotrimazole 1 % topical cream RxNorm: 506230 Apply 1/2 Gram(s) Topical BID Apply to affected areas of groin, periarea, and abdominal topically 2 times daily 11/10/19 023 Inactive Levemir FlexPen 100 unit/mL (3 mL) solution subcutaneous insulin pen RxNorm: 808916 Inject 30 Unit(s) Subcutaneous BID 10/07/19 024 Active Humulin R U-500 (Concentrated) Insulin 500 unit/mL subcutaneous soln RxNorm: 611305 Inject 100 Unit(s) Subcutaneous TID 10/07/19 024 Active Ozempic 0.25 mg or 0.5 mg (2 mg/3 mL) subcutaneous pen injector RxNorm: 4904727 Inject 1/2 Milligram(s) Subcutaneous QW once a week 10/07/19 024 Active aripiprazole 15 mg tablet RxNorm: 201509 1/2 TAB (7.5MG) ORALLY DAILY (DX:MAJOR DEPRESSIVE DISORDER) 09/23/19 023 Active Accu-Chek Guide test strips RxNorm: Use 1 Test Strip QID 09/15/19 23 024 Active ok to substitute with any covered alternative test strip Lancets,Thin 28 gauge RxNorm: Use 1 as directed QID 09/15/19 23 024 Active torsemide 20 mg tablet RxNorm: 114137 Take 1 Tablet(s) Oral BID 09/09/19 23 024 Active d/c once daily dosing carvedilol 25 mg tablet RxNorm: 766060 Take 1 Tablet(s) Oral QD 08/25/19 024 Active pregabalin 150 mg capsule RxNorm: 956065 1 Capsule(s) Oral HS at bed time 08/18/19 23 023 Inactive pregabalin 100 mg capsule RxNorm: 275222 1 Capsule(s) Oral QAM every morning 08/18/19 023 Inactive carvedilol 25 mg tablet RxNorm: 413759 1 Tablet(s) Oral QD 07/28/19 23 023 Inactive lisinopril 20 mg tablet RxNorm: 385485 Give 1 Tablet(s) Oral QD 07/28/19 23 023 Inactive Lyrica 150 mg capsule RxNorm: 959849 Take 1 Capsule(s) Oral QHS every night at bedtime 07/19/19 23 023 Inactive d/c 100mg dose Diflucan 150 mg tablet RxNorm: 422285 Take 1 Tablet(s) Oral QD repeat on day 3 and 6 07/19/19 23 023 Inactive pregabalin 100 mg capsule RxNorm: 925290 Take 1 Capsule(s) Oral QAM every morning 07/19/19 023 Inactive gatifloxacin 0.5 % eye drops RxNorm: 494593 Instill 1 Drop(s) as directed TID Instill 1 drop in to affected eye(s) starting 1 day prior to surgery and continue until gone (do not exceed 4 weeks). 07/13/19 23 023 Inactive carvedilol 25 mg tablet RxNorm: 617957 2 Tablet(s) Oral BID 07/13/19 23 023 Inactive Humulin R Regular U-100 Insulin 100 unit/mL injection solution RxNorm: 821645 85 Unit(s) Injection TID 07/13/19 23 023 Inactive ketorolac 0.5 % eye drops RxNorm: 684510 Instill 1 Drop(s) as directed QID Instill 1 drop into affected eye(s) 4 times daily starting 1 day prior to surgery and continue until gone (do not exceed 4 weeks). 07/13/19 23 023 Inactive Diflucan 150 mg tablet RxNorm: 814311 Take 1 Tablet(s) Oral QD repeat on day 3 and 6 06/30/19 23 023 Inactive Accu-Chek Guide test strips RxNorm: Use 1 Test Strip QID Use 1 test strip to monitor blood glucose 4 times daily and as needed. Dx:E11.42. 06/23/19 23 023 Inactive ok to substitute with any covered alternative test strip dextromethorphan-gu aifenesin 10 mg-100 mg/5 mL oral liquid RxNorm: 793713 Take 10 Milliliter(s) Oral every 4 hours as needed for cough 06/19/19 023 Inactive dextromethorphan-gu aifenesin 10 mg-100 mg/5 mL oral liquid RxNorm: 355467 Take 10 Milliliter(s) Oral every 4 hours as needed for cough 06/19/19 023 Inactive Lyrica 150 mg capsule RxNorm: 472715 Take 1 Capsule(s) Oral QHS every night at bedtime 06/18/19 023 Inactive d/c 100mg dose aripiprazole 15 mg tablet RxNorm: 610648 1/2 TAB (7.5MG) ORALLY DAILY (DX:MAJOR DEPRESSIVE DISORDER) 06/05/19 023 Inactive pregabalin 100 mg capsule RxNorm: 415141 1 Capsule(s) Oral QAM every morning 06/02/19 023 Inactive Banophen 50 mg capsule RxNorm: 9042197 Take 1 Capsule(s) Oral Q6H every 6 hours as needed 05/19/19 23 No Stop Date Active Novolog Flexpen U-100 Insulin aspart 100 unit/mL (3 mL) subcutaneous RxNorm: 0282585 Inject 10 Unit(s) Subcutaneous QHS every night at bedtime with nighttime snack 04/08/20 022 Inactive Novolog Flexpen U-100 Insulin aspart 100 unit/mL (3 mL) subcutaneous RxNorm: 3461796 Inject 42 Unit(s) Subcutaneous TID in addition to sliding scale 04/08/20 022 Inactive d/c 36u albuterol sulfate HFA 90 mcg/actuation aerosol inhaler RxNorm: 7818091 Take 2 Puff(s) Inhalation Q4H every four hours as needed as needed for SOB, cough, or wheezing 04/07/20 030 Active Banophen 50 mg capsule RxNorm: 0898732 Take 1 Capsule(s) Oral Q6H every 6 hours as needed 04/06/20 023 Inactive diphenhydramine 50 mg tablet RxNorm: 6760305 Take 1 Tablet(s) Oral Q6H every 6 hours as needed 04/06/20 22 022 Inactive diphenhydramine 50 mg tablet RxNorm: 4776822 1 Tablet(s) Oral Q6H every 6 hours as needed 04/06/20 22 022 Inactive Abilify 15 mg tablet RxNorm: 317517 1/2 Tablet(s) Oral QD 03/10/20 22 023 Inactive Shingrix (PF) 50 mcg/0.5 mL intramuscular suspension, kit RxNorm: 0978206 Administer 1/2 Milliliter(s) Intramuscular QD one time shingrix step 2 ( step 1 given 11/04/21) WITH needle - Nursing please administer upon arrival and once administered post a bridge message with date of administration, bank accountant, expiration date, and lot# so we can update [facility] 02/18/20 22 022 Inactive dispense with needle Shingrix (PF) 50 mcg/0.5 mL intramuscular suspension, kit RxNorm: 2472225 Administer 1/2 Milliliter(s) Intramuscular QD one time shingrix step 2 ( step 1 given 11/04/21) WITH needle - Nursing please administer upon arrival and once administered post a bridge message with date of administration, bank accountant, expiration date, and lot# so we can update [facility] 02/18/20 22 022 Inactive dispense with needle polyethylene glycol 3350 17 gram/dose oral powder RxNorm: 635150 Take 17=1 capful Gram(s) Oral QD mix with 4-8oz of liquid 01/08/20 22 023 Inactive take this in addition to BID prn order Lyrica 100 mg capsule RxNorm: 140388 Take 1 Capsule(s) Oral QAM every morning 01/08/20 22 022 Inactive d/c 50mg dose acetaminophen 500 mg tablet RxNorm: 062754 Take 1 Tablet(s) Oral TID 01/08/20 22 022 Inactive d/c PRN order Lyrica 150 mg capsule RxNorm: 961664 Take 1 Capsule(s) Oral QHS every night at bedtime 01/08/20 22 023 Inactive d/c 100mg dose Abilify 5 mg tablet RxNorm: 075012 Take 1 Tablet(s) Oral QD take 1 tab po QD #30 refill 5 dx: MDD 12/12/19 22 022 Inactive Abilify 5 mg tablet RxNorm: 719700 Take 1 Tablet(s) Oral QD take 1 tab po QD #30 refill 5 dx: MDD 12/12/19 22 022 Inactive Novolog Flexpen U-100 Insulin aspart 100 unit/mL (3 mL) subcutaneous RxNorm: 0544215 Inject 42 Unit(s) Subcutaneous TID in addition to sliding scale 12/10/19 22 022 Inactive d/c 36u chlorthalidone 25 mg tablet RxNorm: 179879 Take 1 Tablet(s) Oral QAM every morning 12/10/19 22 023 Inactive pregabalin 50 mg capsule RxNorm: 524535 Take 1 Capsule(s) Oral QAM every morning 11/12/19 22 022 Inactive tetanus-diphtheria toxoids-Td 2 Lf unit-2 Lf unit/0.5 mL IM suspension RxNorm: 139 Take 0.5 Miscellaneous Intramuscular 11/12/19 22 022 Inactive need tdap - nursing to administer upon arrival pregabalin 50 mg capsule RxNorm: 450032 Take 1 Capsule(s) Oral QAM every morning 10/16/19 22 022 Inactive pregabalin 50 mg capsule RxNorm: 294001 Take 1 Capsule(s) Oral QAM every morning 10/16/19 22 022 Inactive pregabalin 50 mg capsule RxNorm: 962751 1 Capsule(s) Oral QAM every morning 10/15/19 22 022 Inactive Shingrix (PF) 50 mcg/0.5 mL intramuscular suspension, kit RxNorm: 1390433 Administer 1/2 Milliliter(s) Intramuscular one time Nursing please administer upon arrival and once administered post a bridge message with date of administration, bank accountant, expiration date, and lot# so we can update [facility]. 10/09/19 22 022 Inactive shingrix step 1 Shingrix (PF) 50 mcg/0.5 mL intramuscular suspension, kit RxNorm: 5576615 Administer 1/2 Milliliter(s) Intramuscular one time Nursing please administer upon arrival and once administered post a bridge message with date of administration, bank accountant, expiration date, and lot# so we can update [facility]. 10/09/19 22 Inactive shingrix step 1 cholecalciferol (vitamin D3) 1,250 mcg (50,000 unit) capsule RxNorm: 502731 Take 1 Capsule(s) Oral QW once a [...] aspart 100 unit/mL (3 mL) subcutaneous RxNorm: 6831162 Inject 10 Unit(s) Subcutaneous QHS every night at bedtime with nighttime snack 10/08/19 22 Inactive Shingrix (PF) 50 mcg/0.5 mL intramuscular suspension, kit RxNorm: 7333321 ADMINISTER 2-DOSE SERIES PER CDC GUIDELINES 10/08/19 22 022 Active Shingrix (PF) 50 mcg/0.5 mL intramuscular suspension, kit RxNorm: 9731615 ADMINISTER 2-DOSE SERIES PER CDC GUIDELINES 10/08/19 22 022 Inactive Novolog Flexpen U-100 Insulin aspart 100 unit/mL (3 mL) subcutaneous RxNorm: 2568363 Inject 36 Unit(s) Subcutaneous TID in addition to sliding scale 10/08/19 22 Inactive Novofine Autocover 30 gauge x 1/3 needle RxNorm: Use 1 Miscellaneous UD as directed Use 1 needle as directed to administer insulin 5 times a day Dx:E11.42. 10/03/19 22 Inactive ok to substitute with any covered alternative pen needle benzoyl peroxide 10 % topical cleanser RxNorm: 208015 Apply 1 Application Topical QD apply to face, wash rinse and dry once daily (may change to QOD if drying) 08/19/19 22 022 Inactive (%covered by insurance) #60ml refill 11 dx: acne benzoyl peroxide 10 % topical cleanser RxNorm: 335791 Apply 1 Application Topical QD apply to face, wash rinse and dry once daily (may change to QOD if drying) 08/19/19 22 022 Inactive (%covered by insurance) #60ml refill 11 dx: acne benzoyl peroxide 10 % topical cleanser RxNorm: 295264 Apply 1 Application Topical QD apply to face, wash rinse and dry once daily (may change to QOD if drying) 08/19/19 22 022 Inactive (%covered by insurance) #60ml refill 11 dx: acne Lyrica 50 mg capsule RxNorm: 429387 Take 1 Capsule(s) Oral QAM every morning Take 1 capsule by mouth once daily 08/19/19 022 Inactive benzoyl peroxide 10 % topical cleanser RxNorm: 607892 Apply 1 Application Topical QD apply to face, wash rinse and dry once daily (may change to QOD if drying) 08/19/19 022 Inactive (%covered by insurance) #60ml refill 11 dx: acne Lyrica 100 mg capsule RxNorm: 742742 Take 1 Capsule(s) Oral QHS every night at bedtime Take 1 capsule by mouth once daily at bedtime 08/19/19 22 022 Inactive Lyrica 100 mg capsule RxNorm: 972671 Take 1 Capsule(s) Oral QHS every night at bedtime Take 1 capsule by mouth once daily at bedtime 08/16/19 22 Inactive Lyrica 50 mg capsule RxNorm: 783200 Take 1 Capsule(s) Oral QAM every morning Take 1 capsule by mouth once daily 08/16/19 22 022 Inactive Levemir FlexTouch U-100 Insulin 100 unit/mL (3 mL) subcutaneous pen RxNorm: 905487 Inject 86 Unit(s) Subcutaneous BID 08/05/19 22 022 Inactive d/c 83units BID Lyrica 100 mg capsule RxNorm: 627387 Take 1 Capsule(s) Oral QHS every night at bedtime Take 1 capsule by mouth once daily at bedtime 07/14/19 22 Inactive Lyrica 50 mg capsule RxNorm: 163261 Take 1 Capsule(s) Oral QAM every morning Take 1 capsule by mouth once daily 07/14/19 22 Inactive Levemir FlexTouch U-100 Insulin 100 unit/mL (3 mL) subcutaneous pen RxNorm: 740993 Inject 83 Unit(s) Subcutaneous BID 07/08/19 22 [...] 30 mg tablet,extended release 24 hr RxNorm: 664092 Take 1 Tablet(s) Oral QD 05/05/20 No Stop Date Active hydralazine 50 mg tablet RxNorm: 314681 Take 1 Tablet(s) Oral QID 05/05/20 Inactive venlafaxine ER 225 mg tablet,extended release 24 hr RxNorm: 294285 Take 1 Tablet(s) Oral QD 05/05/20 Inactive venlafaxine ER 225 mg tablet,extended release 24 hr RxNorm: 159083 Take 1 Tablet(s) Oral QD 05/05/20 Inactive hydralazine 50 mg tablet RxNorm: 679478 Take 1 Tablet(s) Oral QID 05/05/20 Inactive aspirin 81 mg tablet,delayed release RxNorm: 249585 Take 1 Tablet(s) Oral QD 03/31/20 Inactive Zetia 10 mg tablet RxNorm: 036327 Take 1 Tablet(s) Oral QD 03/31/20 Inactive Vitamin D2 1,250 mcg (50,000 unit) capsule RxNorm: 2580972 Take 1 Capsule(s) Oral QW once a week x 12 weeks 03/31/20 Inactive Vitamin D2 1,250 mcg (50,000 unit) capsule RxNorm: 2189033 Take 1 Capsule(s) Oral QW once a week 03/31/20 Inactive Zetia 10 mg tablet RxNorm: 482267 Take 1 Tablet(s) Oral QD 03/31/20 Inactive hydralazine 25 mg tablet RxNorm: 693757 Take 1 Tablet(s) Oral QID 03/31/20 Inactive hydralazine 25 mg tablet RxNorm: 001091 Take 1 Tablet(s) Oral QID 03/31/20 Inactive hydralazine 10 mg tablet RxNorm: 568212 Take 1 Tablet(s) Oral QID 03/03/20 021 Inactive cephalexin 500 mg tablet RxNorm: 418287 Take 1 Tablet(s) Oral QID 02/27/20 021 Inactive cephalexin 500 mg tablet RxNorm: 300287 Take 1 Tablet(s) Oral QID 02/27/20 021 Inactive lisinopril 40 mg tablet RxNorm: 947976 Take 1 Tablet(s) Oral QD 02/11/20 023 Inactive Eliquis 5 mg tablet RxNorm: 6383627 Take 1 Tablet(s) Oral BID 01/05/20 21 022 Inactive Eliquis 5 mg tablet RxNorm: 1084443 Take 2 Tablet(s) Oral QD 01/01/20 021 Inactive Lyrica 50 mg capsule RxNorm: 289977 Take 1 Capsule(s) Oral QAM every morning 12/24/19 021 Inactive Lyrica 100 mg capsule RxNorm: 939476 Take 1 Capsule(s) Oral QHS every night at bedtime 12/24/19 021 Inactive clotrimazole 1 % topical cream RxNorm: 087199 Apply to right foot and toes Topical BID 12/04/19 21 023 Inactive metoprolol succinate ER 200 mg tablet,extended release 24 hr RxNorm: 824560 Take 1 Tablet(s) Oral QD 12/04/19 023 Inactive ciprofloxacin 500 mg tablet RxNorm: 480334 Take 1 Tablet(s) Oral QD 11/30/19 21 021 Inactive DX ofloxacin otic drops Accu-Chek Guide test strips RxNorm: USE 1 TO CHECK GLUCOSE 4 TIMES DAILY AND NEEDED 11/15/19 21 023 Inactive Blood Glucose Test strips RxNorm: Use 1 Test Strip QID at PRN 11/05/19 21 023 Inactive E11.42 lisinopril 30 mg tablet RxNorm: 969729 Take 1 Tablet(s) Oral QD 10/30/19 21 021 Inactive lisinopril 20 mg tablet RxNorm: 496749 Take 1 Tablet(s) Oral QD 10/23/19 21 Inactive lisinopril 20 mg tablet RxNorm: 529793 Take 1 Tablet(s) Oral QD 10/23/19 21 Inactive lisinopril 10 mg tablet RxNorm: 931934 Take 1 Tablet(s) Oral QD 10/02/19 21 021 Inactive icosapent ethyl 1 gram capsule RxNorm: 4143349 Take 2 Capsule(s) (2 gm) Oral BID with meals 09/12/19 022 Inactive Okay to dispense one 2gm tab if you have that available. icosapent ethyl 1 gram capsule RxNorm: 1504479 Take 2 Capsule(s) Oral BID 09/12/19 021 Inactive Okay to dispense one 2gm tab if you have that available. amlodipine 10 mg tablet RxNorm: 176188 Take 1 Tablet(s) Oral QD 09/04/19 Inactive aspirin 81 mg tablet,delayed release RxNorm: 145976 Take 1 Tablet(s) Oral QD 09/04/19 21 021 Inactive Levemir FlexTouch U-100 Insulin 100 unit/mL (3 mL) subcutaneous pen RxNorm: 779761 Inject 150 Unit(s) Subcutaneous BID 09/04/19 21 Inactive venlafaxine ER 150 mg tablet,extended release 24 hr RxNorm: 351423 Take 1 Tablet(s) Oral QD 09/04/19 Inactive clotrimazole-betame thasone 1 %-0.05 % topical cream RxNorm: 051525 Apply to rash on red area on left abdomen/chest Topical BID 08/10/19 21 Inactive amlodipine 5 mg tablet RxNorm: 394321 Take 1 Tablet(s) Oral QD 07/31/19 21 Inactive cephalexin 500 mg tablet RxNorm: 006510 Take 1 Tablet(s) Oral BID BID - Twice Daily 07/31/19 21 021 Inactive Start 08/01/20 pantoprazole 40 mg tablet,delayed release RxNorm: 665834 Take 1 Tablet(s) Oral QAM every morning 02/ 022 Inactive senna 8.6 mg tablet RxNorm: 455258 Take 1 Tablet(s) Oral QD 07/08/19 Inactive pravastatin 80 mg tablet RxNorm: 364709 Take 1 Tablet(s) Oral QHS every night at bedtime 07/08/19 022 Inactive carbamazepine 200 mg tablet RxNorm: 991801 Take 1 Tablet(s) Oral BID 07/08/19 022 Inactive clopidogrel 75 mg tablet RxNorm: 158053 Take 1 Tablet(s) Oral QD 07/08/19 021 Inactive Blood Glucose Test strips RxNorm: Use 1 Test Strip QID at PRN 07/08/19 Inactive E11.42 Novolog Flexpen U-100 Insulin aspart 100 unit/mL (3 mL) subcutaneous RxNorm: 9986156 Administer per sliding scale Milliliter(s) Subcutaneous TID 151-200: 10 u; 201-250: 20 u; 251-300: 30 u; 301-350: 40 u; 351-400: 50 u. 07/08/19 022 Inactive lisinopril 5 mg tablet RxNorm: 338835 Take 1 Tablet(s) Oral QD 07/08/19 Inactive Novolog Flexpen U-100 Insulin aspart 100 unit/mL (3 mL) subcutaneous RxNorm: 4356772 Inject 85 Unit(s) Subcutaneous TID 07/08/19 Inactive clotrimazole 1 % topical cream RxNorm: 554752 Apply to bilateral groin areas Topical BID 07/08/19 21 022 Inactive metoprolol succinate ER 200 mg tablet,extended release 24 hr RxNorm: 213356 Take 1 Tablet(s) Oral QD 07/08/19 Inactive Vitamin D3 25 mcg (1,000 unit) tablet RxNorm: 369744 Take 1 Tablet(s) Oral QD 07/08/19 021 Inactive isosorbide dinitrate 30 mg tablet RxNorm: 694571 Take 1 Tablet(s) Oral QD 07/08/19 021 Inactive Levemir FlexTouch U-100 Insulin 100 unit/mL (3 mL) subcutaneous pen RxNorm: 607040 Inject 140 Unit(s) Subcutaneous BID 07/08/19 21 021 Inactive torsemide 20 mg tablet RxNorm: 261633 Take 1 Tablet(s) Oral QD 07/08/19 21 023 Inactive venlafaxine 75 mg tablet RxNorm: 704686 Take 1 Tablet(s) Oral QD 07/08/19 021 Inactive acetaminophen 500 mg tablet RxNorm: 894602 Take 1 Tablet(s) Oral TID as needed for headache 06/18/19 021 Inactive acetaminophen 500 mg tablet RxNorm: 416064 Take 1 Tablet(s) Oral TID as needed for headache 06/18/19 021 Inactive Lyrica 100 mg capsule RxNorm: 952063 Take 1 Capsule(s) Oral QHS every night at bedtime 06/11/19 21 021 Inactive Lyrica 50 mg capsule RxNorm: 536744 Take 1 Capsule(s) Oral QAM every morning 06/10/19 021 Inactive hydrocortisone 2.5 % topical cream RxNorm: 105148 Apply to bilateral groin creases Topical BID 05/15/20 20 021 Inactive clotrimazole 1 % topical cream RxNorm: 312865 Apply to bilateral groin areas Topical BID 05/15/20 20 021 Inactive Lyrica 50 mg capsule RxNorm: 002342 Take 1 Capsule(s) Oral QAM every morning 05/14/20 20 020 Inactive Lyrica 100 mg capsule RxNorm: 678257 Take 1 Capsule(s) Oral QHS every night at bedtime 05/14/20 20 020 Inactive Blood Glucose Monitoring kit RxNorm: Use as directed QID and PRN 04/24/20 20 021 Inactive Lancets,Thin 28 gauge RxNorm: Use 1 as directed QID and PRN 04/24/20 20 020 Inactive Blood Glucose Test strips RxNorm: Use 1 Test Strip QID at PRN 04/24/20 20 01/07/2 021 Inactive Blood Glucose Test strips RxNorm: Use 1 Test Strip QID at PRN 04/23/20 20 Inactive Lancets,Thin 28 gauge RxNorm: Use 1 as directed QID and PRN 04/23/20 20 Inactive Blood Glucose Monitoring kit RxNorm: Use as directed QID and PRN 04/23/20 20 Inactive Nystop 100,000 unit/gram topical powder RxNorm: 061139 Apply to abd folds, under breasts and L side of groin Topical BID x 14 days, then BID PRN 04/08/20 20 Inactive dx: yeast dermatitis Lyrica 100 mg capsule RxNorm: 446509 Take 1 Capsule(s) Oral QHS every night at bedtime 03/13/20 20 Inactive Lyrica 50 mg capsule RxNorm: 888076 Take 1 Capsule(s) Oral QAM every morning 03/13/20 20 Inactive ketoconazole 2 % shampoo RxNorm: 011177 Apply Topical two times a week with showers 03/11/20 20 Inactive cholecalciferol (vitamin D3) 50 mcg (2,000 unit) tablet RxNorm: 240351 Take 1 Tablet(s) Oral QD 03/11/20 20 Inactive Zetia 10 mg tablet RxNorm: 869554 Take 1 Tablet(s) Oral QD 03/07/20 20 Inactive Zetia 10 mg tablet RxNorm: 960593 Take 1 Tablet(s) Oral QD 03/07/20 20 Inactive Lyrica 50 mg capsule RxNorm: 436720 Take 1 Capsule(s) Oral QAM every morning 02/15/20 20 Inactive Lyrica 100 mg capsule RxNorm: 972181 Take 1 Capsule(s) Oral QHS every night at bedtime 02/15/20 20 Inactive Lyrica 100 mg capsule RxNorm: 402275 Take 1 Capsule(s) Oral QHS every night at bedtime 02/15/20 20 Inactive Lyrica 50 mg capsule RxNorm: 090319 Take 1 Capsule(s) Oral QAM every morning 02/15/20 20 020 Inactive polyethylene glycol 3350 17 gram/dose oral powder RxNorm: 134347 Take 17=1 capful Gram(s) Oral BID as needed mix with 4-8oz of liquid 06/12/19 22 Active metoprolol succinate ER 200 mg tablet,extended release 24 hr RxNorm: 160491 Take 1 Tablet(s) Oral QD 08/12/19 23 Active loperamide 2 mg capsule RxNorm: 171322 Take 1 Capsule(s) Oral QID as needed 06/12/19 22 Active hydralazine 50 mg tablet RxNorm: 310065 Take 1 Tablet(s) Oral QID 08/12/19 23 Active venlafaxine ER 75 mg capsule,extended release 24 hr RxNorm: 295745 Take 3 Capsule(s) Oral QD 06/12/19 22 023 Inactive icosapent ethyl 1 gram capsule RxNorm: 0878081 Take 2 Capsule(s) (2 gm) Oral BID with meals 10/07/19 23 023 Inactive Okay to dispense one 2gm tab if you have that available. Levemir FlexTouch U-100 Insulin 100 unit/mL (3 mL) subcutaneous pen RxNorm: 397947 Inject 80 Unit(s) Subcutaneous BID 07/14/19 23 023 Inactive Novolog Flexpen U-100 Insulin aspart 100 unit/mL (3 mL) subcutaneous RxNorm: 4897079 Insert 30 Unit(s) Subcutaneous TID with meals [...] Referral: [facility] WPtel: [phone] [id number] [place] Referral Records Received 09/21/2022 Referral: [facility] WPtel: [phone] [id number] [place] Referral Completed 05/28/2021 Referral: General Cardiology Referral Complet ed 01/03/2021 Referral: General Psychologist Referral Close d Instructions Comment Date Loenid is a Male being seen living at [facility]. Initial [facility] visit 01/2020. PMHx including DMII, CAD w/ 5 stents, Depression, Seizure Disorder and CKD stage 3. He moved into [facility] in 12/2019 but after a hospitalization 05/2021 he moved to the [facility] to have closer nursing attention. Sister Jyotsna involved in his care cell# [phone] Guardian: Don (tapan met in person 09/01/21), now has Lexii (same group as don)Lab Schedule: * 02/08/2023
--- OUTSIDE RECORDS SUMMARY | 2023-04-01 09:34 | XMS_ITS | CCD ---
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 [employer] Cracking Tester Name Role Phone Chelo Fonseca PA-C Primary Care Provider Unavaila ble Chelo Fonseca PA-C Chronic Care Management Nicole archer Summary Purpose DataExchange Insurance Providers Payer name Policy type / Coverage type Covered alliance party ID Effective Begin Date Effective End Date [place] B [id number] Unknown Unknown [place] B [id number] Unknown Unknown Family history Sister Brittany Suggs [...] Detention 09/03/[address]: 2668612 Non-Smoker / No History of Smoking 09/02/[address]: 413937427 No Alcohol Consum ption 09/02/2020 Allergies, Adverse Reactions, Alerts Substance Reaction Codes Entered Date Inactivated Date Status LISINOPRIL RxNorm: 44663 02/12/2020 No Inactive Da te Active Metformin HCl Unknown 02/12/2020 No Inactive Cristiano e Active Problems Condition Codes Effective Dates Condition St atus Annual physical exam ICD-10: Z00.00 ICD-9: V70.0 02/02/2023 Active Coronary artery disease invo lving [place] coronary artery of [place] heart, angina presence unspecified ICD-10: I25.10 ICD-9: 414.01 02/02/2023 Active Encounter for other specifie d special examinations ICD-10: Z01.89 ICD-9: V72.85 02/02/2023 Active Encounter for screening for nutritional disorder ICD-10: Z13.21 ICD-9: V77.99 02/02/2023 Active Hyperlipidemia associated wi th type 2 diabetes mellitus ICD-10: E11.69 ICD-9: 250.80 02/02/2023 Active 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 ICD-10: Z79.899 ICD-9: [...] Fill Instructions pregabalin 150 mg capsule RxNorm: 909415 Take 1 Capsule(s) Oral HS at bed time 02/19/20 23 023 Inactive pregabalin 100 mg capsule RxNorm: 806728 Take 1 Capsule(s) Oral QAM every morning 02/18/20 23 024 Active FreeStyle Chema 2 Sensor kit RxNorm: use as directed 02/04/20 23 024 Active venlafaxine ER 75 mg capsule,extended release 24 hr RxNorm: 052713 Take 3 Capsule(s) Oral QD 02/04/20 23 023 Inactive FreeStyle Chema 2 Sensor kit RxNorm: use as directed 02/04/20 23 023 Inactive fluconazole 150 mg tablet RxNorm: 064249 Take 1 Tablet(s) Oral on day 3 and on day 6 02/03/20 23 024 Active chlorthalidone 25 mg tablet RxNorm: 734366 Take 1 Tablet(s) Oral QAM every morning 02/03/20 23 No Stop Date Active venlafaxine ER 150 mg capsule,extended release 24 hr RxNorm: 006283 Take 1 Capsule(s) Oral QD 02/03/20 23 023 Inactive acetaminophen 500 mg tablet RxNorm: 695718 1 TABLET ORALLY 3 TIMES DAILY (MAX APAP:4GM/24HR) 12/15/19 23 024 Active potassium chloride ER 20 mEq tablet,extended release RxNorm: 662859 Take 1 Tablet(s) Oral BID 12/09/19 23 023 Inactive d/c 20mEq once daily (sent from hospital) clotrimazole 1 % topical cream RxNorm: 550645 apply 1g topically to top of feet and in between toes BID 12/09/19 23 023 Inactive nystatin 100,000 unit/gram topical powder RxNorm: 061667 APPLY TO AFFECTED AREAS TOPICALLY 2 TIMES DAILY 11/21/19 23 024 Active Nystop 100,000 unit/gram topical powder RxNorm: 344257 Apply to abd folds, under breasts and L side of groin Topical BID x 14 days, then BID PRN 11/20/19 23 023 Inactive dx: yeast dermatitis [place] Ultra Strength 4 %-30 %-10 % topical cream RxNorm: 044803 Apply 1 Gram(s) Topical QID PRN to feet and legs for neuropathic pain 11/11/19 23 024 Active hydrocortisone 2.5 % topical cream RxNorm: 961151 Apply 1/2 Gram(s) Topical BID as needed 11/10/19 No Stop Date Active clotrimazole 1 % topical cream RxNorm: 160820 Apply 1/2 Gram(s) Topical BID Apply to affected areas of groin, periarea, and abdominal topically 2 times daily 11/10/19 023 Inactive Levemir FlexPen 100 unit/mL (3 mL) solution subcutaneous insulin pen RxNorm: 149028 Inject 30 Unit(s) Subcutaneous BID 10/07/19 024 Active Humulin R U-500 (Concentrated) Insulin 500 unit/mL subcutaneous soln RxNorm: 109092 Inject 100 Unit(s) Subcutaneous TID 10/07/19 024 Active Ozempic 0.25 mg or 0.5 mg (2 mg/3 mL) subcutaneous pen injector RxNorm: 5689367 Inject 1/2 Milligram(s) Subcutaneous QW once a week 10/07/19 024 Active aripiprazole 15 mg tablet RxNorm: 887944 1/2 TAB (7.5MG) ORALLY DAILY (DX:MAJOR DEPRESSIVE DISORDER) 09/23/19 023 Inactive Lancets,Thin 28 gauge RxNorm: Use 1 as directed QID 09/15/19 23 024 Active Accu-Chek Guide test strips RxNorm: Use 1 Test Strip QID 09/15/19 23 023 Inactive ok to substitute with any covered alternative test strip torsemide 20 mg tablet RxNorm: 448375 Take 1 Tablet(s) Oral BID 09/09/19 23 024 Active d/c once daily dosing carvedilol 25 mg tablet RxNorm: 785148 Take 1 Tablet(s) Oral QD 08/25/19 23 024 Active pregabalin 150 mg capsule RxNorm: 363343 1 Capsule(s) Oral HS at bed time 08/18/19 23 023 Inactive pregabalin 100 mg capsule RxNorm: 350837 1 Capsule(s) Oral QAM every morning 08/18/19 023 Inactive carvedilol 25 mg tablet RxNorm: 170406 1 Tablet(s) Oral QD 07/28/19 23 023 Inactive lisinopril 20 mg tablet RxNorm: 441523 Give 1 Tablet(s) Oral QD 07/28/19 23 023 Inactive Lyrica 150 mg capsule RxNorm: 299285 Take 1 Capsule(s) Oral QHS every night at bedtime 07/19/19 23 023 Inactive d/c 100mg dose Diflucan 150 mg tablet RxNorm: 532085 Take 1 Tablet(s) Oral QD repeat on day 3 and 6 07/19/19 23 023 Inactive pregabalin 100 mg capsule RxNorm: 628881 Take 1 Capsule(s) Oral QAM every morning 07/19/19 023 Inactive gatifloxacin 0.5 % eye drops RxNorm: 604643 Instill 1 Drop(s) as directed TID Instill 1 drop in to affected eye(s) starting 1 day prior to surgery and continue until gone (do not exceed 4 weeks). 07/13/19 23 023 Inactive carvedilol 25 mg tablet RxNorm: 372458 2 Tablet(s) Oral BID 07/13/19 23 023 Inactive Humulin R Regular U-100 Insulin 100 unit/mL injection solution RxNorm: 399610 85 Unit(s) Injection TID 07/13/19 23 023 Inactive ketorolac 0.5 % eye drops RxNorm: 331742 Instill 1 Drop(s) as directed QID Instill 1 drop into affected eye(s) 4 times daily starting 1 day prior to surgery and continue until gone (do not exceed 4 weeks). 07/13/19 23 023 Inactive Diflucan 150 mg tablet RxNorm: 164832 Take 1 Tablet(s) Oral QD repeat on day 3 and 6 06/30/19 23 023 Inactive Accu-Chek Guide test strips RxNorm: Use 1 Test Strip QID Use 1 test strip to monitor blood glucose 4 times daily and as needed. Dx:E11.42. 06/23/19 23 023 Inactive ok to substitute with any covered alternative test strip dextromethorphan-gu aifenesin 10 mg-100 mg/5 mL oral liquid RxNorm: 327428 Take 10 Milliliter(s) Oral every 4 hours as needed for cough 06/19/19 023 Inactive dextromethorphan-gu aifenesin 10 mg-100 mg/5 mL oral liquid RxNorm: 536362 Take 10 Milliliter(s) Oral every 4 hours as needed for cough 06/19/19 023 Inactive Lyrica 150 mg capsule RxNorm: 909634 Take 1 Capsule(s) Oral QHS every night at bedtime 06/18/19 023 Inactive d/c 100mg dose aripiprazole 15 mg tablet RxNorm: 655026 1/2 TAB (7.5MG) ORALLY DAILY (DX:MAJOR DEPRESSIVE DISORDER) 06/05/19 023 Inactive pregabalin 100 mg capsule RxNorm: 576988 1 Capsule(s) Oral QAM every morning 06/02/19 023 Inactive Banophen 50 mg capsule RxNorm: 0501135 Take 1 Capsule(s) Oral Q6H every 6 hours as needed 05/19/19 23 No Stop Date Active Novolog Flexpen U-100 Insulin aspart 100 unit/mL (3 mL) subcutaneous RxNorm: 1789647 Inject 10 Unit(s) Subcutaneous QHS every night at bedtime with nighttime snack 04/08/20 022 Inactive Novolog Flexpen U-100 Insulin aspart 100 unit/mL (3 mL) subcutaneous RxNorm: 6816456 Inject 42 Unit(s) Subcutaneous TID in addition to sliding scale 04/08/20 022 Inactive d/c 36u albuterol sulfate HFA 90 mcg/actuation aerosol inhaler RxNorm: 7346397 Take 2 Puff(s) Inhalation Q4H every four hours as needed as needed for SOB, cough, or wheezing 04/07/20 030 Active Banophen 50 mg capsule RxNorm: 4258366 Take 1 Capsule(s) Oral Q6H every 6 hours as needed 04/06/20 023 Inactive diphenhydramine 50 mg tablet RxNorm: 3823645 Take 1 Tablet(s) Oral Q6H every 6 hours as needed 04/06/20 22 022 Inactive diphenhydramine 50 mg tablet RxNorm: 4213615 1 Tablet(s) Oral Q6H every 6 hours as needed 04/06/20 22 022 Inactive Abilify 15 mg tablet RxNorm: 839662 1/2 Tablet(s) Oral QD 03/10/20 22 023 Inactive Shingrix (PF) 50 mcg/0.5 mL intramuscular suspension, kit RxNorm: 8944949 Administer 1/2 Milliliter(s) Intramuscular QD one time shingrix step 2 ( step 1 given 11/04/21) WITH needle - Nursing please administer upon arrival and once administered post a bridge message with date of administration, club room 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, expiration date, and lot# so we can update [facility] 02/18/20 22 022 Inactive dispense with needle Shingrix (PF) 50 mcg/0.5 mL intramuscular suspension, kit RxNorm: 2682347 Administer 1/2 Milliliter(s) Intramuscular QD one time shingrix step 2 ( step 1 given 11/04/21) WITH needle - Nursing please administer upon arrival and once administered post a bridge message with date of administration, club room attendant, expiration date, and lot# so we can update [facility] 02/18/20 22 022 Inactive dispense with needle polyethylene glycol 3350 17 gram/dose oral powder RxNorm: 600139 Take 17=1 capful Gram(s) Oral QD mix with 4-8oz of liquid 01/08/20 22 023 Inactive take this in addition to BID prn order Lyrica 100 mg capsule RxNorm: 693896 Take 1 Capsule(s) Oral QAM every morning 01/08/20 22 022 Inactive d/c 50mg dose acetaminophen 500 mg tablet RxNorm: 952703 Take 1 Tablet(s) Oral TID 01/08/20 22 022 Inactive d/c PRN order Lyrica 150 mg capsule RxNorm: 489379 Take 1 Capsule(s) Oral QHS every night at bedtime 01/08/20 22 023 Inactive d/c 100mg dose Abilify 5 mg tablet RxNorm: 837557 Take 1 Tablet(s) Oral QD take 1 tab po QD #30 refill 5 dx: MDD 12/12/19 22 022 Inactive Abilify 5 mg tablet RxNorm: 276398 Take 1 Tablet(s) Oral QD take 1 tab po QD #30 refill 5 dx: MDD 12/12/19 22 022 Inactive Novolog Flexpen U-100 Insulin aspart 100 unit/mL (3 mL) subcutaneous RxNorm: 9141792 Inject 42 Unit(s) Subcutaneous TID in addition to sliding scale 12/10/19 22 022 Inactive d/c 36u chlorthalidone 25 mg tablet RxNorm: 115944 Take 1 Tablet(s) Oral QAM every morning 12/10/19 22 023 Inactive pregabalin 50 mg capsule RxNorm: 947318 Take 1 Capsule(s) Oral QAM every morning 11/12/19 22 022 Inactive tetanus-diphtheria toxoids-Td 2 Lf unit-2 Lf unit/0.5 mL IM suspension RxNorm: 139 Take 0.5 Miscellaneous Intramuscular 11/12/19 22 022 Inactive need tdap - nursing to administer upon arrival pregabalin 50 mg capsule RxNorm: 782106 Take 1 Capsule(s) Oral QAM every morning 10/16/19 22 022 Inactive pregabalin 50 mg capsule RxNorm: 516890 Take 1 Capsule(s) Oral QAM every morning 10/16/19 22 022 Inactive pregabalin 50 mg capsule RxNorm: 113565 1 Capsule(s) Oral QAM every morning 10/15/19 22 022 Inactive Shingrix (PF) 50 mcg/0.5 mL intramuscular suspension, kit RxNorm: 4032748 Administer 1/2 Milliliter(s) Intramuscular one time Nursing please administer upon arrival and once administered post a bridge message with date of administration, club room attendant, expiration date, and lot# so we can update [facility]. 10/09/19 22 022 Inactive shingrix step 1 Shingrix (PF) 50 mcg/0.5 mL intramuscular suspension, kit RxNorm: 4109504 Administer 1/2 Milliliter(s) Intramuscular one time Nursing please administer upon arrival and once administered post a bridge message with date of administration, club room attendant, expiration date, and lot# so we can update [facility]. 10/09/19 22 Inactive shingrix step 1 cholecalciferol (vitamin D3) 1,250 mcg (50,000 unit) capsule RxNorm: 922203 Take 1 Capsule(s) Oral QW once a [...] aspart 100 unit/mL (3 mL) subcutaneous RxNorm: 6118426 Inject 10 Unit(s) Subcutaneous QHS every night at bedtime with nighttime snack 10/08/19 22 Inactive Shingrix (PF) 50 mcg/0.5 mL intramuscular suspension, kit RxNorm: 8249549 ADMINISTER 2-DOSE SERIES PER CDC GUIDELINES 10/08/19 22 022 Active Shingrix (PF) 50 mcg/0.5 mL intramuscular suspension, kit RxNorm: 0799972 ADMINISTER 2-DOSE SERIES PER CDC GUIDELINES 10/08/19 22 022 Inactive Novolog Flexpen U-100 Insulin aspart 100 unit/mL (3 mL) subcutaneous RxNorm: 4247139 Inject 36 Unit(s) Subcutaneous TID in addition to sliding scale 10/08/19 22 Inactive Novofine Autocover 30 gauge x 1/3 needle RxNorm: Use 1 Miscellaneous UD as directed Use 1 needle as directed to administer insulin 5 times a day Dx:E11.42. 10/03/19 22 Inactive ok to substitute with any covered alternative pen needle benzoyl peroxide 10 % topical cleanser RxNorm: 008191 Apply 1 Application Topical QD apply to face, wash rinse and dry once daily (may change to QOD if drying) 08/19/19 22 022 Inactive (%covered by insurance) #60ml refill 11 dx: acne benzoyl peroxide 10 % topical cleanser RxNorm: 330122 Apply 1 Application Topical QD apply to face, wash rinse and dry once daily (may change to QOD if drying) 08/19/19 22 022 Inactive (%covered by insurance) #60ml refill 11 dx: acne benzoyl peroxide 10 % topical cleanser RxNorm: 654086 Apply 1 Application Topical QD apply to face, wash rinse and dry once daily (may change to QOD if drying) 08/19/19 22 022 Inactive (%covered by insurance) #60ml refill 11 dx: acne Lyrica 50 mg capsule RxNorm: 015310 Take 1 Capsule(s) Oral QAM every morning Take 1 capsule by mouth once daily 08/19/19 022 Inactive benzoyl peroxide 10 % topical cleanser RxNorm: 826929 Apply 1 Application Topical QD apply to face, wash rinse and dry once daily (may change to QOD if drying) 08/19/19 022 Inactive (%covered by insurance) #60ml refill 11 dx: acne Lyrica 100 mg capsule RxNorm: 561013 Take 1 Capsule(s) Oral QHS every night at bedtime Take 1 capsule by mouth once daily at bedtime 08/19/19 22 022 Inactive Lyrica 100 mg capsule RxNorm: 616343 Take 1 Capsule(s) Oral QHS every night at bedtime Take 1 capsule by mouth once daily at bedtime 08/16/19 22 Inactive Lyrica 50 mg capsule RxNorm: 265513 Take 1 Capsule(s) Oral QAM every morning Take 1 capsule by mouth once daily 08/16/19 22 022 Inactive Levemir FlexTouch U-100 Insulin 100 unit/mL (3 mL) subcutaneous pen RxNorm: 609825 Inject 86 Unit(s) Subcutaneous BID 08/05/19 22 022 Inactive d/c 83units BID Lyrica 100 mg capsule RxNorm: 047458 Take 1 Capsule(s) Oral QHS every night at bedtime Take 1 capsule by mouth once daily at bedtime 07/14/19 22 Inactive Lyrica 50 mg capsule RxNorm: 008726 Take 1 Capsule(s) Oral QAM every morning Take 1 capsule by mouth once daily 07/14/19 22 Inactive Levemir FlexTouch U-100 Insulin 100 unit/mL (3 mL) subcutaneous pen RxNorm: 269132 Inject 83 Unit(s) Subcutaneous BID 07/08/19 22 [...] 30 mg tablet,extended release 24 hr RxNorm: 734960 Take 1 Tablet(s) Oral QD 05/05/20 No Stop Date Active hydralazine 50 mg tablet RxNorm: 617384 Take 1 Tablet(s) Oral QID 05/05/20 Inactive venlafaxine ER 225 mg tablet,extended release 24 hr RxNorm: 509836 Take 1 Tablet(s) Oral QD 05/05/20 Inactive venlafaxine ER 225 mg tablet,extended release 24 hr RxNorm: 486539 Take 1 Tablet(s) Oral QD 05/05/20 022 Inactive hydralazine 50 mg tablet RxNorm: 158998 Take 1 Tablet(s) Oral QID 05/05/20 Inactive aspirin 81 mg tablet,delayed release RxNorm: 305033 Take 1 Tablet(s) Oral QD 03/31/20 Inactive Zetia 10 mg tablet RxNorm: 739437 Take 1 Tablet(s) Oral QD 03/31/20 Inactive Vitamin D2 1,250 mcg (50,000 unit) capsule RxNorm: 9462840 Take 1 Capsule(s) Oral QW once a week x 12 weeks 03/31/20 022 Inactive Vitamin D2 1,250 mcg (50,000 unit) capsule RxNorm: 2948024 Take 1 Capsule(s) Oral QW once a week 03/31/20 Inactive Zetia 10 mg tablet RxNorm: 125723 Take 1 Tablet(s) Oral QD 03/31/20 Inactive hydralazine 25 mg tablet RxNorm: 437263 Take 1 Tablet(s) Oral QID 03/31/20 021 Inactive hydralazine 25 mg tablet RxNorm: 024126 Take 1 Tablet(s) Oral QID 03/31/20 Inactive hydralazine 10 mg tablet RxNorm: 464222 Take 1 Tablet(s) Oral QID 03/03/20 021 Inactive cephalexin 500 mg tablet RxNorm: 450795 Take 1 Tablet(s) Oral QID 02/27/20 021 Inactive cephalexin 500 mg tablet RxNorm: 290860 Take 1 Tablet(s) Oral QID 02/27/20 021 Inactive lisinopril 40 mg tablet RxNorm: 845155 Take 1 Tablet(s) Oral QD 02/11/20 023 Inactive Eliquis 5 mg tablet RxNorm: 2080995 Take 1 Tablet(s) Oral BID 01/05/20 21 022 Inactive Eliquis 5 mg tablet RxNorm: 2912468 Take 2 Tablet(s) Oral QD 01/01/20 021 Inactive Lyrica 50 mg capsule RxNorm: 028774 Take 1 Capsule(s) Oral QAM every morning 12/24/19 021 Inactive Lyrica 100 mg capsule RxNorm: 387514 Take 1 Capsule(s) Oral QHS every night at bedtime 12/24/19 021 Inactive clotrimazole 1 % topical cream RxNorm: 079150 Apply to right foot and toes Topical BID 12/04/19 21 023 Inactive metoprolol succinate ER 200 mg tablet,extended release 24 hr RxNorm: 970630 Take 1 Tablet(s) Oral QD 12/04/19 023 Inactive ciprofloxacin 500 mg tablet RxNorm: 921505 Take 1 Tablet(s) Oral QD 11/30/19 021 Inactive DX ofloxacin otic drops Accu-Chek Guide test strips RxNorm: USE 1 TO CHECK GLUCOSE 4 TIMES DAILY AND NEEDED 11/15/19 21 023 Inactive Blood Glucose Test strips RxNorm: Use 1 Test Strip QID at PRN 11/05/19 21 023 Inactive E11.42 lisinopril 30 mg tablet RxNorm: 280889 Take 1 Tablet(s) Oral QD 10/30/19 21 021 Inactive lisinopril 20 mg tablet RxNorm: 400760 Take 1 Tablet(s) Oral QD 10/23/19 21 021 Inactive lisinopril 20 mg tablet RxNorm: 383726 Take 1 Tablet(s) Oral QD 10/23/19 21 021 Inactive lisinopril 10 mg tablet RxNorm: 731083 Take 1 Tablet(s) Oral QD 10/02/19 21 021 Inactive icosapent ethyl 1 gram capsule RxNorm: 5096913 Take 2 Capsule(s) (2 gm) Oral BID with meals 09/12/19 21 022 Inactive Okay to dispense one 2gm tab if you have that available. icosapent ethyl 1 gram capsule RxNorm: 7613882 Take 2 Capsule(s) Oral BID 09/12/19 21 021 Inactive Okay to dispense one 2gm tab if you have that available. amlodipine 10 mg tablet RxNorm: 404342 Take 1 Tablet(s) Oral QD 09/04/19 21 Inactive aspirin 81 mg tablet,delayed release RxNorm: 565684 Take 1 Tablet(s) Oral QD 09/04/19 21 021 Inactive Levemir FlexTouch U-100 Insulin 100 unit/mL (3 mL) subcutaneous pen RxNorm: 710262 Inject 150 Unit(s) Subcutaneous BID 09/04/19 21 022 Inactive venlafaxine ER 150 mg tablet,extended release 24 hr RxNorm: 803792 Take 1 Tablet(s) Oral QD 09/04/19 21 021 Inactive clotrimazole-betame thasone 1 %-0.05 % topical cream RxNorm: 315059 Apply to rash on red area on left abdomen/chest Topical BID 08/10/19 21 021 Inactive amlodipine 5 mg tablet RxNorm: 603101 Take 1 Tablet(s) Oral QD 07/31/19 21 021 Inactive cephalexin 500 mg tablet RxNorm: 971236 Take 1 Tablet(s) Oral BID BID - Twice Daily 07/31/19 21 021 Inactive Start 08/01/20 pantoprazole 40 mg tablet,delayed release RxNorm: 199951 Take 1 Tablet(s) Oral QAM every morning 07/08/19 21 022 Inactive senna 8.6 mg tablet RxNorm: 428798 Take 1 Tablet(s) Oral QD 07/08/19 022 Inactive pravastatin 80 mg tablet RxNorm: 442695 Take 1 Tablet(s) Oral QHS every night at bedtime 07/08/19 023 Inactive carbamazepine 200 mg tablet RxNorm: 286977 Take 1 Tablet(s) Oral BID 07/08/19 022 Inactive clopidogrel 75 mg tablet RxNorm: 869440 Take 1 Tablet(s) Oral QD 07/08/19 021 Inactive Blood Glucose Test strips RxNorm: Use 1 Test Strip QID at PRN 07/08/19 Inactive E11.42 Novolog Flexpen U-100 Insulin aspart 100 unit/mL (3 mL) subcutaneous RxNorm: 6536616 Administer per sliding scale Milliliter(s) Subcutaneous TID 151-200: 10 u; 201-250: 20 u; 251-300: 30 u; 301-350: 40 u; 351-400: 50 u. 07/08/19 022 Inactive lisinopril 5 mg tablet RxNorm: 066994 Take 1 Tablet(s) Oral QD 07/08/19 Inactive Novolog Flexpen U-100 Insulin aspart 100 unit/mL (3 mL) subcutaneous RxNorm: 4456920 Inject 85 Unit(s) Subcutaneous TID 07/08/19 022 Inactive clotrimazole 1 % topical cream RxNorm: 563326 Apply to bilateral groin areas Topical BID 07/08/19 022 Inactive metoprolol succinate ER 200 mg tablet,extended release 24 hr RxNorm: 628620 Take 1 Tablet(s) Oral QD 07/08/19 Inactive Vitamin D3 25 mcg (1,000 unit) tablet RxNorm: 758761 Take 1 Tablet(s) Oral QD 07/08/19 021 Inactive isosorbide dinitrate 30 mg tablet RxNorm: 992683 Take 1 Tablet(s) Oral QD 07/08/19 021 Inactive Levemir FlexTouch U-100 Insulin 100 unit/mL (3 mL) subcutaneous pen RxNorm: 563158 Inject 140 Unit(s) Subcutaneous BID 07/08/19 21 021 Inactive torsemide 20 mg tablet RxNorm: 454968 Take 1 Tablet(s) Oral QD 07/08/19 21 023 Inactive venlafaxine 75 mg tablet RxNorm: 443123 Take 1 Tablet(s) Oral QD 07/08/19 021 Inactive acetaminophen 500 mg tablet RxNorm: 541469 Take 1 Tablet(s) Oral TID as needed for headache 06/18/19 21 021 Inactive acetaminophen 500 mg tablet RxNorm: 017959 Take 1 Tablet(s) Oral TID as needed for headache 06/18/19 021 Inactive Lyrica 100 mg capsule RxNorm: 553068 Take 1 Capsule(s) Oral QHS every night at bedtime 06/11/19 21 021 Inactive Lyrica 50 mg capsule RxNorm: 159686 Take 1 Capsule(s) Oral QAM every morning 06/10/19 021 Inactive hydrocortisone 2.5 % topical cream RxNorm: 261181 Apply to bilateral groin creases Topical BID 05/15/20 20 021 Inactive clotrimazole 1 % topical cream RxNorm: 242346 Apply to bilateral groin areas Topical BID 05/15/20 20 021 Inactive Lyrica 50 mg capsule RxNorm: 057154 Take 1 Capsule(s) Oral QAM every morning 05/14/20 20 020 Inactive Lyrica 100 mg capsule RxNorm: 093349 Take 1 Capsule(s) Oral QHS every night [...] Inactive Nystop 100,000 unit/gram topical powder RxNorm: 983781 Apply to abd folds, under breasts and L side of groin Topical BID x 14 days, then BID PRN 04/08/20 20 Inactive dx: yeast dermatitis Lyrica 100 mg capsule RxNorm: 175871 Take 1 Capsule(s) Oral QHS every night at bedtime 03/13/20 20 Inactive Lyrica 50 mg capsule RxNorm: 400510 Take 1 Capsule(s) Oral QAM every morning 03/13/20 20 Inactive ketoconazole 2 % shampoo RxNorm: 018747 Apply Topical two times a week with showers 03/11/20 20 Inactive cholecalciferol (vitamin D3) 50 mcg (2,000 unit) tablet RxNorm: 617529 Take 1 Tablet(s) Oral QD 03/11/20 20 Inactive Zetia 10 mg tablet RxNorm: 155256 Take 1 Tablet(s) Oral QD 03/07/20 20 021 Inactive Zetia 10 mg tablet RxNorm: 982157 Take 1 Tablet(s) Oral QD 03/07/20 20 Inactive Lyrica 50 mg capsule RxNorm: 287841 Take 1 Capsule(s) Oral QAM every morning 02/15/20 20 Inactive Lyrica 100 mg capsule RxNorm: 764884 Take 1 Capsule(s) Oral QHS every night at bedtime 02/15/20 20 Inactive Lyrica 100 mg capsule RxNorm: 247330 Take 1 Capsule(s) Oral QHS every night at bedtime 02/15/20 20 Inactive Lyrica 50 mg capsule RxNorm: 110962 Take 1 Capsule(s) Oral QAM every morning 02/15/20 20 020 Inactive polyethylene glycol 3350 17 gram/dose oral powder RxNorm: 506706 Take 17=1 capful Gram(s) Oral BID as needed mix with 4-8oz of liquid 06/12/19 22 Active metoprolol succinate ER 200 mg tablet,extended release 24 hr RxNorm: 656061 Take 1 Tablet(s) Oral QD 08/12/19 23 Active loperamide 2 mg capsule RxNorm: 453422 Take 1 Capsule(s) Oral QID as needed 06/12/19 22 Active hydralazine 50 mg tablet RxNorm: 132903 Take 1 Tablet(s) Oral QID 08/12/19 23 Active venlafaxine ER 75 mg capsule,extended release 24 hr RxNorm: 301017 Take 3 Capsule(s) Oral QD 06/12/19 22 023 Inactive icosapent ethyl 1 gram capsule RxNorm: 8620290 Take 2 Capsule(s) (2 gm) Oral BID with meals 10/07/19 23 023 Inactive Okay to dispense one 2gm tab if you have that available. Levemir FlexTouch U-100 Insulin 100 unit/mL (3 mL) subcutaneous pen RxNorm: 953085 Inject 80 Unit(s) Subcutaneous BID 07/14/19 23 023 Inactive Novolog Flexpen U-100 Insulin aspart 100 unit/mL (3 mL) subcutaneous RxNorm: 7480061 Insert 30 Unit(s) Subcutaneous TID with meals 10/08/19 22 022 Inactive Medication Administered No Medication Administered data Reason For Visit No Reason For Visit data Plan of Care Planned Activity Notes Codes Status Date Referral: [facility] WPtel: [address], [address] [id number] [place] Referral Records Received 09/21/2022 Referral: [facility] WPtel: [address] [id number] [place] Referral Completed 05/28/2021 Referral: General Cardiology [...] into [facility] 12/2019 but after a hospitalization 05/2021 he moved to the [facility] to have closer nursing attention. Sister Jyotsna involved in his care cell# [phone] Guardian: Don (tapan met in person 09/01/21), now has Lexii (same group as don)Lab Schedule: * 02/08/2023
--- OUTSIDE RECORDS SUMMARY | 2023-04-01 09:35 | XMS_ITS | CCD ---
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 Tablet(s) Oral QD 08/12/19 23 Active loperamide 2 mg capsule RxNorm: 132395 Take 1 Capsule(s) Oral QID as needed 06/12/19 22 Active hydralazine 50 mg tablet RxNorm: 397267 Take 1 Tablet(s) Oral QID 08/12/19 23 Active venlafaxine ER 75 mg capsule,extended release 24 hr RxNorm: 542394 Take 3 Capsule(s) Oral QD 06/12/19 22 023 Inactive icosapent ethyl 1 gram capsule RxNorm: 4548807 Take 2 Capsule(s) (2 gm) Oral BID with meals 10/07/19 23 023 Inactive Okay to dispense one 2gm tab if you have that available. Levemir FlexTouch U-100 Insulin 100 unit/mL (3 mL) subcutaneous pen RxNorm: 117029 Inject 80 Unit(s) Subcutaneous BID 07/14/19 23 023 Inactive Novolog Flexpen U-100 Insulin aspart 100 unit/mL (3 mL) subcutaneous RxNorm: 8447780 Insert 30 Unit(s) Subcutaneous TID with meals 05 022 Inactive Medication Administered No Medication Administered data Reason For Visit No Reason For Visit data Plan of Care Planned Activity Notes Codes Status Date Patient Education: Patient Medication Summary Completed 03/03/2023 Appointment: Sandra Clark WPtel: [address] [facility] 300 [id number] Telehealth Psych Follow Up 12/09 Appointment: Rosalina Shirley WPtel: [address] [facility] 300 [id number] [facility] 10/26/2022 Referral: [facility] WPtel: [phone] , [address] [id number] Referral Records Received 09/21/2022 Appointment: Rosalina Shirley WPtel: [address] [facility] 300 [id number] [place] F/U 08/11/2022 Appointment: Rosalina Shirley WPtel: [address] [facility] 300 [id number] [place] F/U 07/14/2022 Appointment: Rosalina Shirley WPtel: [address] [facility] 300 [id number] F/U 02/10/2022 Referral: [facility] WPtel: [phone] [id number] [place] Referral Completed 05/28/2021 Referral: General Cardiology [...] stage 3. He moved into [facility] in 12/2019 but after a hospitalization 05/2021 he moved to the [facility] to have closer nursing attention. Sister Jyotsna involved in his care cell# [phone] Guardian: Don (rosalina met in person 09/01/21), now has Lexii (same group as don)Lab Schedule: * 02/08/2023
--- OUTSIDE RECORDS SUMMARY | 2023-04-01 09:35 | XMS_ITS | CCD ---
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 Cold Rolling Name Role Phone Chelo Fonseca PA-C Primary Care Provider Unavaila ble Chelo Fonseca PA-C Chronic Care Management Unavai labcal Summary Purpose DataExchange Insurance Providers Payer name Policy type / Coverage type Covered libertarian ID Effective Begin Date Effective End Date Medicare [place] Medicare Part B [id number] Unknown Unknown Medicaid [place] Medicare Part B [id number] Unknown Unknown Family history Sister Brittany Suggs Diagnosis Age At Onset No Family Disease Entered N/A Runs in the family Diagnosis Age At Onset No Known Diseases N/A Sister Blanka Mcduffie Diagnosis Age At Onset No Family Disease Entered N/A Social History Social History Element Codes Description Effec tive Dates Marital status Unknown Single 10/07/2021 Living arrangements Unknown Care Home 09/03/[address]: 0359520 Non-Smoker / No History of Smoking 09/02/[address]: 932288128 No Alcohol Consum ption 09/02/2020 Allergies, Adverse Reactions, Alerts Substance Reaction Codes Entered Date Inactivated Date Status LISINOPRIL RxNorm: 67319 02/12/2020 No Inactive Da te Active Metformin HCl Unknown 02/12/2020 No Inactive Cristiano e Active Problems Condition Codes Effective Dates Condition St atus Coronary artery disease invo lving [place] coronary artery of [place] heart, angina presence unspecified ICD-10: I25.10 ICD-9: [...] disorder ICD-10: Z13.21 ICD-9: V77.99 02/02/2023 Active 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 ICD-10: Z79.899 ICD-9: V58.69 02/02/2023 Active Hypertensive heart disease w ithout [...] immunization ICD-10: Z23 ICD-9: V03.89 02/10/2022 Resolved jail (current) use of insulin ICD-10: Z79.4 02/10 [...] Fill Instructions rosuvastatin 20 mg tablet RxNorm: 756612 Take 1 Tablet(s) Oral QD 10/12/ 024 Active d/c pravastatin 80mg Ozempic 1 mg/dose (4 mg/3 mL) subcutaneous pen injector RxNorm: 9866232 Inject 1 Milligram(s) Subcutaneous QW once a week 02/20/20 23 023 Inactive pregabalin 150 mg capsule RxNorm: 669680 Take 1 Capsule(s) Oral HS at bed time 02/19/20 23 023 Inactive pregabalin 100 mg capsule RxNorm: 919605 Take 1 Capsule(s) Oral QAM every morning 02/18/20 024 Active FreeStyle Chema 2 Sensor kit RxNorm: use as directed 02/04/20 23 024 Active venlafaxine ER 75 mg capsule,extended release 24 hr RxNorm: 115476 Take 3 Capsule(s) Oral QD 02/04/20 023 Inactive FreeStyle Chema 2 Sensor kit RxNorm: use as directed 02/04/20 23 023 Inactive fluconazole 150 mg tablet RxNorm: 005901 Take 1 Tablet(s) Oral on day 3 and on day 6 02/03/20 23 024 Active chlorthalidone 25 mg tablet RxNorm: 857139 Take 1 Tablet(s) Oral QAM every morning 02/03/20 23 No Stop Date Active venlafaxine ER 150 mg capsule,extended release 24 hr RxNorm: 543989 Take 1 Capsule(s) Oral QD 02/03/20 023 Inactive acetaminophen 500 mg tablet RxNorm: 484749 1 TABLET ORALLY 3 TIMES DAILY (MAX APAP:4GM/24HR) 12/15/19 23 024 Active potassium chloride ER 20 mEq tablet,extended release RxNorm: 375967 Take 1 Tablet(s) Oral BID 12/09/19 23 023 Inactive d/c 20mEq once daily (sent from hospital) clotrimazole 1 % topical cream RxNorm: 313084 apply 1g topically to top of feet and in between toes BID 12/09/19 23 023 Inactive nystatin 100,000 unit/gram topical powder RxNorm: 794231 APPLY TO AFFECTED AREAS TOPICALLY 2 TIMES DAILY 11/21/19 23 024 Active Nystop 100,000 unit/gram topical powder RxNorm: 414562 Apply to abd folds, under breasts and L side of groin Topical BID x 14 days, then BID PRN 11/20/19 23 023 Inactive dx: yeast dermatitis [place] Ultra Strength 4 %-30 %-10 % topical cream RxNorm: 985081 Apply 1 Gram(s) Topical QID PRN to feet and legs for neuropathic pain 11/11/19 23 024 Active hydrocortisone 2.5 % topical cream RxNorm: 667361 Apply 1/2 Gram(s) Topical BID as needed 11/10/19 No Stop Date Active clotrimazole 1 % topical cream RxNorm: 257309 Apply 1/2 Gram(s) Topical BID Apply to affected areas of groin, periarea, and abdominal topically 2 times daily 11/10/19 23 023 Inactive Levemir FlexPen 100 unit/mL (3 mL) solution subcutaneous insulin pen RxNorm: 147000 Inject 30 Unit(s) Subcutaneous BID 10/07/19 23 024 Active Humulin R U-500 (Concentrated) Insulin 500 unit/mL subcutaneous soln RxNorm: 975838 Inject 100 Unit(s) Subcutaneous TID 10/07/19 23 024 Active Ozempic 0.25 mg or 0.5 mg (2 mg/3 mL) subcutaneous pen injector RxNorm: 1907875 Inject 1/2 Milligram(s) Subcutaneous QW once a week 10/07/19 024 Active aripiprazole 15 mg tablet RxNorm: 305627 1/2 TAB (7.5MG) ORALLY DAILY (DX:MAJOR DEPRESSIVE DISORDER) 09/23/19 23 023 Inactive Lancets,Thin 28 gauge RxNorm: Use 1 as directed QID 09/15/19 23 024 Active Accu-Chek Guide test strips RxNorm: Use 1 Test Strip QID 09/15/19 23 023 Inactive ok to substitute with any covered alternative test strip torsemide 20 mg tablet RxNorm: 715321 Take 1 Tablet(s) Oral BID 09/09/19 23 024 Active d/c once daily dosing carvedilol 25 mg tablet RxNorm: 385304 Take 1 Tablet(s) Oral QD 08/25/19 23 024 Active pregabalin 150 mg capsule RxNorm: 953902 1 Capsule(s) Oral HS at bed time 08/18/19 23 023 Inactive pregabalin 100 mg capsule RxNorm: 271554 1 Capsule(s) Oral QAM every morning 08/18/19 23 023 Inactive carvedilol 25 mg tablet RxNorm: 997072 1 Tablet(s) Oral QD 07/28/19 23 023 Inactive lisinopril 20 mg tablet RxNorm: 231002 Give 1 Tablet(s) Oral QD 07/28/19 23 023 Inactive Lyrica 150 mg capsule RxNorm: 808279 Take 1 Capsule(s) Oral QHS every night at bedtime 07/19/19 23 023 Inactive d/c 100mg dose Diflucan 150 mg tablet RxNorm: 067020 Take 1 Tablet(s) Oral QD repeat on day 3 and 6 07/19/19 23 023 Inactive pregabalin 100 mg capsule RxNorm: 556225 Take 1 Capsule(s) Oral QAM every morning 07/19/19 23 023 Inactive gatifloxacin 0.5 % eye drops RxNorm: 074254 Instill 1 Drop(s) as directed TID Instill 1 drop in to affected eye(s) starting 1 day prior to surgery and continue until gone (do not exceed 4 weeks). 07/13/19 23 023 Inactive carvedilol 25 mg tablet RxNorm: 706738 2 Tablet(s) Oral BID 07/13/19 23 023 Inactive Humulin R Regular U-100 Insulin 100 unit/mL injection solution RxNorm: 321755 85 Unit(s) Injection TID 07/13/19 23 023 Inactive ketorolac 0.5 % eye drops RxNorm: 251401 Instill 1 Drop(s) as directed QID Instill 1 drop into affected eye(s) 4 times daily starting 1 day prior to surgery and continue until gone (do not exceed 4 weeks). 07/13/19 23 023 Inactive Diflucan 150 mg tablet RxNorm: 258582 Take 1 Tablet(s) Oral QD repeat on day 3 and 6 06/30/19 23 023 Inactive Accu-Chek Guide test strips RxNorm: Use 1 Test Strip QID Use 1 test strip to monitor blood glucose 4 times daily and as needed. Dx:E11.42. 06/23/19 023 Inactive ok to substitute with any covered alternative test strip dextromethorphan-gu aifenesin 10 mg-100 mg/5 mL oral liquid RxNorm: 661856 Take 10 Milliliter(s) Oral every 4 hours as needed for cough 06/19/19 023 Inactive dextromethorphan-gu aifenesin 10 mg-100 mg/5 mL oral liquid RxNorm: 614122 Take 10 Milliliter(s) Oral every 4 hours as needed for cough 06/19/19 023 Inactive Lyrica 150 mg capsule RxNorm: 270897 Take 1 Capsule(s) Oral QHS every night at bedtime 06/18/19 023 Inactive d/c 100mg dose aripiprazole 15 mg tablet RxNorm: 172066 1/2 TAB (7.5MG) ORALLY DAILY (DX:MAJOR DEPRESSIVE DISORDER) 06/05/19 23 023 Inactive pregabalin 100 mg capsule RxNorm: 891951 1 Capsule(s) Oral QAM every morning 06/02/19 23 023 Inactive Banophen 50 mg capsule RxNorm: 8450932 Take 1 Capsule(s) Oral Q6H every 6 hours as needed 05/19/19 23 No Stop Date Active Novolog Flexpen U-100 Insulin aspart 100 unit/mL (3 mL) subcutaneous RxNorm: 3175857 Inject 10 Unit(s) Subcutaneous QHS every night at bedtime with nighttime snack 04/08/20 22 022 Inactive Novolog Flexpen U-100 Insulin aspart 100 unit/mL (3 mL) subcutaneous RxNorm: 9666098 Inject 42 Unit(s) Subcutaneous TID in addition to sliding scale 04/08/20 022 Inactive d/c 36u albuterol sulfate HFA 90 mcg/actuation aerosol inhaler RxNorm: 9474418 Take 2 Puff(s) Inhalation Q4H every four hours as needed as needed for SOB, cough, or wheezing 04/07/20 030 Active Banophen 50 mg capsule RxNorm: 7126078 Take 1 Capsule(s) Oral Q6H every 6 hours as needed 04/06/20 023 Inactive diphenhydramine 50 mg tablet RxNorm: 8463222 Take 1 Tablet(s) Oral Q6H every 6 hours as needed 04/06/20 022 Inactive diphenhydramine 50 mg tablet RxNorm: 7060384 1 Tablet(s) Oral Q6H every 6 hours as needed 04/06/20 022 Inactive Abilify 15 mg tablet RxNorm: 592085 1/2 Tablet(s) Oral QD 03/10/20 023 Inactive Shingrix (PF) 50 mcg/0.5 mL intramuscular suspension, kit RxNorm: 9686809 Administer 1/2 Milliliter(s) Intramuscular QD one time shingrix step 2 ( step 1 given 11/04/21) WITH needle - Nursing please administer upon arrival and once administered post a bridge message with date of administration, energy trader, expiration date, and lot# so we can update [facility] 02/18/20 22 022 Inactive dispense with needle Shingrix (PF) 50 mcg/0.5 mL intramuscular suspension, kit RxNorm: 7771248 Administer 1/2 Milliliter(s) Intramuscular QD one time shingrix step 2 ( step 1 given 11/04/21) WITH needle - Nursing please administer upon arrival and once administered post a bridge message with date of administration, energy trader, expiration date, and lot# so we can update [facility]IC 02/18/20 22 022 Inactive dispense with needle polyethylene glycol 3350 17 gram/dose oral powder RxNorm: 296891 Take 17=1 capful Gram(s) Oral QD mix with 4-8oz of liquid 01/08/20 22 023 Inactive take this in addition to BID prn order Lyrica 100 mg capsule RxNorm: 941316 Take 1 Capsule(s) Oral QAM every morning 01/08/20 22 022 Inactive d/c 50mg dose acetaminophen 500 mg tablet RxNorm: 166795 Take 1 Tablet(s) Oral TID 01/08/20 22 022 Inactive d/c PRN order Lyrica 150 mg capsule RxNorm: 820057 Take 1 Capsule(s) Oral QHS every night at bedtime 01/08/20 22 023 Inactive d/c 100mg dose Abilify 5 mg tablet RxNorm: 373363 Take 1 Tablet(s) Oral QD take 1 tab po QD #30 refill 5 dx: MDD 12/12/19 22 022 Inactive Abilify 5 mg tablet RxNorm: 321980 Take 1 Tablet(s) Oral QD take 1 tab po QD #30 refill 5 dx: MDD 12/12/19 22 022 Inactive Novolog Flexpen U-100 Insulin aspart 100 unit/mL (3 mL) subcutaneous RxNorm: 1145271 Inject 42 Unit(s) Subcutaneous TID in addition to sliding scale 12/10/19 22 Inactive d/c 36u chlorthalidone 25 mg tablet RxNorm: 404696 Take 1 Tablet(s) Oral QAM every morning 12/10/19 22 023 Inactive pregabalin 50 mg capsule RxNorm: 676402 Take 1 Capsule(s) Oral QAM every morning 11/12/19 22 022 Inactive tetanus-diphtheria toxoids-Td 2 Lf unit-2 Lf unit/0.5 mL IM suspension RxNorm: 139 Take 0.5 Miscellaneous Intramuscular 11/12/19 22 022 Inactive need tdap - nursing to administer upon arrival pregabalin 50 mg capsule RxNorm: 626264 Take 1 Capsule(s) Oral QAM every morning 10/16/19 22 022 Inactive pregabalin 50 mg capsule RxNorm: 085866 Take 1 Capsule(s) Oral QAM every morning 10/16/19 22 022 Inactive pregabalin 50 mg capsule RxNorm: 935190 1 Capsule(s) Oral QAM every morning 10/15/19 22 Inactive Shingrix (PF) 50 mcg/0.5 mL intramuscular suspension, kit RxNorm: 7788855 Administer 1/2 Milliliter(s) Intramuscular one time Nursing please administer upon arrival and once administered post a bridge message with date of administration, energy trader, expiration date, and lot# so we can update [facility]IC. 10/09/19 22 022 Inactive shingrix step 1 Shingrix (PF) 50 mcg/0.5 mL intramuscular suspension, kit RxNorm: 1274639 Administer 1/2 Milliliter(s) Intramuscular one time Nursing please administer upon arrival and once administered post a bridge message with date of administration, energy trader, expiration date, and lot# so we can update [facility]IC. 10/09/19 22 022 Inactive shingrix step 1 cholecalciferol (vitamin D3) 1,250 mcg (50,000 unit) capsule RxNorm: 040627 Take 1 Capsule(s) Oral QW once a [...] aspart 100 unit/mL (3 mL) subcutaneous RxNorm: 8594542 Inject 10 Unit(s) Subcutaneous QHS every night at bedtime with nighttime snack 10/08/19 22 Inactive Shingrix (PF) 50 mcg/0.5 mL intramuscular suspension, kit RxNorm: 5364822 ADMINISTER 2-DOSE SERIES PER CDC GUIDELINES 10/08/19 22 Active Shingrix (PF) 50 mcg/0.5 mL intramuscular suspension, kit RxNorm: 1520544 ADMINISTER 2-DOSE SERIES PER CDC GUIDELINES 10/08/19 Inactive Novolog Flexpen U-100 Insulin aspart 100 unit/mL (3 mL) subcutaneous RxNorm: 9614173 Inject 36 Unit(s) Subcutaneous TID in addition to sliding scale 10/08/19 Inactive Novofine Autocover 30 gauge x 1/3 needle RxNorm: Use 1 Miscellaneous UD as directed Use 1 needle as directed to administer insulin 5 times a day Dx:E11.42. 10/03/19 Inactive ok to substitute with any covered alternative pen needle benzoyl peroxide 10 % topical cleanser RxNorm: 783362 Apply 1 Application Topical QD apply to face, wash rinse and dry once daily (may change to QOD if drying) 08/19/19 022 Inactive (%covered by insurance) #60ml refill 11 dx: acne benzoyl peroxide 10 % topical cleanser RxNorm: 874607 Apply 1 Application Topical QD apply to face, wash rinse and dry once daily (may change to QOD if drying) 08/19/19 022 Inactive (%covered by insurance) #60ml refill 11 dx: acne benzoyl peroxide 10 % topical cleanser RxNorm: 116648 Apply 1 Application Topical QD apply to face, wash rinse and dry once daily (may change to QOD if drying) 08/19/19 Inactive (%covered by insurance) #60ml refill 11 dx: acne Lyrica 50 mg capsule RxNorm: 971303 Take 1 Capsule(s) Oral QAM every morning Take 1 capsule by mouth once daily 08/19/19 22 022 Inactive benzoyl peroxide 10 % topical cleanser RxNorm: 541304 Apply 1 Application Topical QD apply to face, wash rinse and dry once daily (may change to QOD if drying) 08/19/19 022 Inactive (%covered by insurance) #60ml refill 11 dx: acne Lyrica 100 mg capsule RxNorm: 375216 Take 1 Capsule(s) Oral QHS every night at bedtime Take 1 capsule by mouth once daily at bedtime 08/19/19 22 Inactive Lyrica 100 mg capsule RxNorm: 147433 Take 1 Capsule(s) Oral QHS every night at bedtime Take 1 capsule by mouth once daily at bedtime 08/16/19 22 022 Inactive Lyrica 50 mg capsule RxNorm: 129614 Take 1 Capsule(s) Oral QAM every morning Take 1 capsule by mouth once daily 08/16/19 22 022 Inactive Levemir FlexTouch U-100 Insulin 100 unit/mL (3 mL) subcutaneous pen RxNorm: 905898 Inject 86 Unit(s) Subcutaneous BID 08/05/19 22 022 Inactive d/c 83units BID Lyrica 100 mg capsule RxNorm: 594204 Take 1 Capsule(s) Oral QHS every night at bedtime Take 1 capsule by mouth once daily at bedtime 07/14/19 22 022 Inactive Lyrica 50 mg capsule RxNorm: 860454 Take 1 Capsule(s) Oral QAM every morning Take 1 capsule by mouth once daily 07/14/19 22 022 Inactive Levemir FlexTouch U-100 Insulin 100 unit/mL (3 mL) subcutaneous pen RxNorm: 437934 Inject 83 Unit(s) Subcutaneous BID 07/08/19 22 [...] 30 mg tablet,extended release 24 hr RxNorm: 128778 Take 1 Tablet(s) Oral QD 05/05/20 No Stop Date Active hydralazine 50 mg tablet RxNorm: 086245 Take 1 Tablet(s) Oral QID 05/05/20 21 Inactive venlafaxine ER 225 mg tablet,extended release 24 hr RxNorm: 949866 Take 1 Tablet(s) Oral QD 05/05/20 21 Inactive venlafaxine ER 225 mg tablet,extended release 24 hr RxNorm: 814620 Take 1 Tablet(s) Oral QD 05/05/20 21 022 Inactive hydralazine 50 mg tablet RxNorm: 054750 Take 1 Tablet(s) Oral QID 05/05/20 21 021 Inactive aspirin 81 mg tablet,delayed release RxNorm: 896430 Take 1 Tablet(s) Oral QD 03/31/20 21 022 Inactive Zetia 10 mg tablet RxNorm: 734244 Take 1 Tablet(s) Oral QD 03/31/20 21 Inactive Vitamin D2 1,250 mcg (50,000 unit) capsule RxNorm: 6521857 Take 1 Capsule(s) Oral QW once a week x 12 weeks 03/31/20 21 022 Inactive Vitamin D2 1,250 mcg (50,000 unit) capsule RxNorm: 6880386 Take 1 Capsule(s) Oral QW once a week 03/31/20 021 Inactive Zetia 10 mg tablet RxNorm: 064628 Take 1 Tablet(s) Oral QD 03/31/20 Inactive hydralazine 25 mg tablet RxNorm: 127466 Take 1 Tablet(s) Oral QID 03/31/20 021 Inactive hydralazine 25 mg tablet RxNorm: 442480 Take 1 Tablet(s) Oral QID 03/31/20 021 Inactive hydralazine 10 mg tablet RxNorm: 189069 Take 1 Tablet(s) Oral QID 03/03/20 021 Inactive cephalexin 500 mg tablet RxNorm: 878846 Take 1 Tablet(s) Oral QID 02/27/20 021 Inactive cephalexin 500 mg tablet RxNorm: 698513 Take 1 Tablet(s) Oral QID 02/27/20 021 Inactive lisinopril 40 mg tablet RxNorm: 177393 Take 1 Tablet(s) Oral QD 02/11/20 023 Inactive Eliquis 5 mg tablet RxNorm: 1176790 Take 1 Tablet(s) Oral BID 01/05/20 022 Inactive Eliquis 5 mg tablet RxNorm: 5566914 Take 2 Tablet(s) Oral QD 01/01/20 021 Inactive Lyrica 50 mg capsule RxNorm: 620439 Take 1 Capsule(s) Oral QAM every morning 12/24/19 021 Inactive Lyrica 100 mg capsule RxNorm: 537200 Take 1 Capsule(s) Oral QHS every night at bedtime 12/24/19 021 Inactive clotrimazole 1 % topical cream RxNorm: 829513 Apply to right foot and toes Topical BID 12/04/19 21 023 Inactive metoprolol succinate ER 200 mg tablet,extended release 24 hr RxNorm: 310658 Take 1 Tablet(s) Oral QD 12/04/19 21 023 Inactive ciprofloxacin 500 mg tablet RxNorm: 758931 Take 1 Tablet(s) Oral QD 11/30/19 21 021 Inactive DX ofloxacin otic drops Accu-Chek Guide test strips RxNorm: USE 1 TO CHECK GLUCOSE 4 TIMES DAILY AND NEEDED 11/15/19 21 023 Inactive Blood Glucose Test strips RxNorm: Use 1 Test Strip QID at PRN 11/05/19 21 023 Inactive E11.42 lisinopril 30 mg tablet RxNorm: 009952 Take 1 Tablet(s) Oral QD 10/30/19 021 Inactive lisinopril 20 mg tablet RxNorm: 104049 Take 1 Tablet(s) Oral QD 10/23/19 21 021 Inactive lisinopril 20 mg tablet RxNorm: 844574 Take 1 Tablet(s) Oral QD 10/23/19 21 021 Inactive lisinopril 10 mg tablet RxNorm: 368175 Take 1 Tablet(s) Oral QD 10/02/19 021 Inactive icosapent ethyl 1 gram capsule RxNorm: 4939297 Take 2 Capsule(s) (2 gm) Oral BID with meals 09/12/19 022 Inactive Okay to dispense one 2gm tab if you have that available. icosapent ethyl 1 gram capsule RxNorm: 3734480 Take 2 Capsule(s) Oral BID 09/12/19 21 021 Inactive Okay to dispense one 2gm tab if you have that available. amlodipine 10 mg tablet RxNorm: 376523 Take 1 Tablet(s) Oral QD 09/04/19 022 Inactive aspirin 81 mg tablet,delayed release RxNorm: 138390 Take 1 Tablet(s) Oral QD 09/04/19 021 Inactive Levemir FlexTouch U-100 Insulin 100 unit/mL (3 mL) subcutaneous pen RxNorm: 247302 Inject 150 Unit(s) Subcutaneous BID 09/04/19 21 022 Inactive venlafaxine ER 150 mg tablet,extended release 24 hr RxNorm: 598925 Take 1 Tablet(s) Oral QD 09/04/19 21 021 Inactive clotrimazole-betame thasone 1 %-0.05 % topical cream RxNorm: 937109 Apply to rash on red area on left abdomen/chest Topical BID 08/10/19 21 Inactive amlodipine 5 mg tablet RxNorm: 753023 Take 1 Tablet(s) Oral QD 07/31/19 Inactive cephalexin 500 mg tablet RxNorm: 502048 Take 1 Tablet(s) Oral BID BID - Twice Daily 07/31/19 Inactive Start 08/01/20 pantoprazole 40 mg tablet,delayed release RxNorm: 798689 Take 1 Tablet(s) Oral QAM every morning 07/08/19 022 Inactive senna 8.6 mg tablet RxNorm: 795569 Take 1 Tablet(s) Oral QD 07/08/19 Inactive pravastatin 80 mg tablet RxNorm: 085191 Take 1 Tablet(s) Oral QHS every night at bedtime 07/08/19 023 Inactive carbamazepine 200 mg tablet RxNorm: 204246 Take 1 Tablet(s) Oral BID 07/08/19 022 Inactive clopidogrel 75 mg tablet RxNorm: 561666 Take 1 Tablet(s) Oral QD 07/08/19 Inactive Blood Glucose Test strips RxNorm: Use 1 Test Strip QID at PRN 07/08/19 Inactive E11.42 Novolog Flexpen U-100 Insulin aspart 100 unit/mL (3 mL) subcutaneous RxNorm: 6146065 Administer per sliding scale Milliliter(s) Subcutaneous TID 151-200: 10 u; 201-250: 20 u; 251-300: 30 u; 301-350: 40 u; 351-400: 50 u. 07/08/19 022 Inactive lisinopril 5 mg tablet RxNorm: 400755 Take 1 Tablet(s) Oral QD 07/08/19 021 Inactive Novolog Flexpen U-100 Insulin aspart 100 unit/mL (3 mL) subcutaneous RxNorm: 1899748 Inject 85 Unit(s) Subcutaneous TID 07/08/19 022 Inactive clotrimazole 1 % topical cream RxNorm: 575919 Apply to bilateral groin areas Topical BID 07/08/19 022 Inactive metoprolol succinate ER 200 mg tablet,extended release 24 hr RxNorm: 405637 Take 1 Tablet(s) Oral QD 07/08/19 021 Inactive Vitamin D3 25 mcg (1,000 unit) tablet RxNorm: 257713 Take 1 Tablet(s) Oral QD 07/08/19 021 Inactive isosorbide dinitrate 30 mg tablet RxNorm: 401469 Take 1 Tablet(s) Oral QD 07/08/19 021 Inactive Levemir FlexTouch U-100 Insulin 100 unit/mL (3 mL) subcutaneous pen RxNorm: 621807 Inject 140 Unit(s) Subcutaneous BID 07/08/19 021 Inactive torsemide 20 mg tablet RxNorm: 416827 Take 1 Tablet(s) Oral QD 07/08/19 023 Inactive venlafaxine 75 mg tablet RxNorm: 934745 Take 1 Tablet(s) Oral QD 07/08/19 021 Inactive acetaminophen 500 mg tablet RxNorm: 056616 Take 1 Tablet(s) Oral TID as needed for headache 06/18/19 021 Inactive acetaminophen 500 mg tablet RxNorm: 517767 Take 1 Tablet(s) Oral TID as needed for headache 06/18/19 021 Inactive Lyrica 100 mg capsule RxNorm: 938784 Take 1 Capsule(s) Oral QHS every night at bedtime 06/11/19 021 Inactive Lyrica 50 mg capsule RxNorm: 477876 Take 1 Capsule(s) Oral QAM every morning 06/10/19 21 021 Inactive hydrocortisone 2.5 % topical cream RxNorm: 881831 Apply to bilateral groin creases Topical BID 05/15/20 20 021 Inactive clotrimazole 1 % topical cream RxNorm: 903287 Apply to bilateral groin areas Topical BID 05/15/20 20 021 Inactive Lyrica 50 mg capsule RxNorm: 532392 Take 1 Capsule(s) Oral QAM every morning 05/14/20 20 Inactive Lyrica 100 mg capsule RxNorm: 079269 Take 1 Capsule(s) Oral QHS every night [...] Inactive Nystop 100,000 unit/gram topical powder RxNorm: 567524 Apply to abd folds, under breasts and L side of groin Topical BID x 14 days, then BID PRN 04/08/20 20 Inactive dx: yeast dermatitis Lyrica 100 mg capsule RxNorm: 025899 Take 1 Capsule(s) Oral QHS every night at bedtime 03/13/20 20 Inactive Lyrica 50 mg capsule RxNorm: 739263 Take 1 Capsule(s) Oral QAM every morning 03/13/20 20 Inactive ketoconazole 2 % shampoo RxNorm: 522936 Apply Topical two times a week with showers 03/11/20 20 Inactive cholecalciferol (vitamin D3) 50 mcg (2,000 unit) tablet RxNorm: 080114 Take 1 Tablet(s) Oral QD 03/11/20 20 Inactive Zetia 10 mg tablet RxNorm: 232318 Take 1 Tablet(s) Oral QD 03/07/20 20 Inactive Zetia 10 mg tablet RxNorm: 231710 Take 1 Tablet(s) Oral QD 03/07/20 20 Inactive Lyrica 50 mg capsule RxNorm: 654484 Take 1 Capsule(s) Oral QAM every morning 02/15/20 20 Inactive Lyrica 100 mg capsule RxNorm: 437144 Take 1 Capsule(s) Oral QHS every night at bedtime 02/15/20 20 Inactive Lyrica 100 mg capsule RxNorm: 224318 Take 1 Capsule(s) Oral QHS every night at bedtime 02/15/20 20 Inactive Lyrica 50 mg capsule RxNorm: 358042 Take 1 Capsule(s) Oral QAM every morning 02/15/20 20 Inactive polyethylene glycol 3350 17 gram/dose oral powder RxNorm: 624187 Take 17=1 capful Gram(s) Oral BID as needed mix with 4-8oz of liquid 06/12/19 22 Active metoprolol succinate ER 200 mg tablet,extended release 24 hr RxNorm: 030619 Take 1 Tablet(s) Oral QD 08/12/19 23 Active loperamide 2 mg capsule RxNorm: 376152 Take 1 Capsule(s) Oral QID as needed 06/12/19 22 Active hydralazine 50 mg tablet RxNorm: 497816 Take 1 Tablet(s) Oral QID 08/12/19 23 Active venlafaxine ER 75 mg capsule,extended release 24 hr RxNorm: 010852 Take 3 Capsule(s) Oral QD 06/12/19 22 023 Inactive icosapent ethyl 1 gram capsule RxNorm: 7031227 Take 2 Capsule(s) (2 gm) Oral BID with meals 10/07/19 23 023 Inactive Okay to dispense one 2gm tab if you have that available. Levemir FlexTouch U-100 Insulin 100 unit/mL (3 mL) subcutaneous pen RxNorm: 801198 Inject 80 Unit(s) Subcutaneous BID 07/14/19 23 023 Inactive Novolog Flexpen U-100 Insulin aspart 100 unit/mL (3 mL) subcutaneous RxNorm: 9822457 Insert 30 Unit(s) Subcutaneous TID with meals 10/08/19 22 022 Inactive Medication Administered No Medication Administered data Vital Signs Date Vital 02/24/2023 Height: 5'5 Code: 8302-2 Weight : Code: 3141-9 Reason For Visit No Reason For Visit data Encounters Encounter Performer Location Location Address Codes Date ([address]) Home or Residence Visit Est Pt - High Level, 60 mins Diagnosis: Coronary artery disease involving [place] coronary artery of [place] heart, angina presence unspecified[ICD10: I25.10] Diagnosis: Hyperlipidemia associated with type 2 diabetes mellitus[ICD10: E11.69] Diagnosis: Stage 2 chronic 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[ICD10: E11.22] Diagnosis: Type 2 diabetes mellitus with diabetic polyneuropathy, with long-term current use of insulin[ICD10: E11.42] Chelo Fonseca [facility] [place] [facility] [address] [id number] [place] [id number] CPT-4: 33203 02/24/2023 Plan of Care Planned Activity Notes Codes Status Date Patient Education: Patient Medication Summary Completed 02/24/2023 Patient Education: Influenza Vaccine Completed 02/24/2023 Appointment: Sandra Clark WPtel: [address] [place], [place] [id number] Telehealth Psych Follow Up 12/09 Appointment: Tapan Shirley WPtel: [address] [place], [place] [phone] [facility] 10/26/2022 Referral: [facility] [address] [facility] [address] [id number] Referral Records Received 09/21/2022 Appointment: Tapan Shirley WPtel: [phone] [place] F/U 08/11/2022 Appointment: Tapan Shirley WPtel: [phone] [place] F/U 07/14/2022 Appointment: Tapan Shirley WPtel: [address] [address] [id number] F/U 02/10/2022 Referral: [facility] WPtel: [address] [id number] [place] Referral Completed 05/28/2021 Referral: General Cardiology [...] Sister Jyotsna involved in his care cell# [phone] Guardian: Giulia (tapan met in person 09/01/21), now has Lexii (same group as giulia)Lab Schedule: * 02/08/2023 Ischemic Heart Disease Has daily chest pain, appears to be unchanging from baseline intermittent pain that he has had for the past 2-3 years since heart attack. He needs to make an appointment with [facility]. Staff aware and will help schedule apt. Will attempt to reach guardian and CC. Diabetes DM2: High dose insulin. Needs to follow up with endocrinology. Staff aware and have been instructed to help set up an appointment. Continue mealtime insulin 100U TID Continue Levemir 30U BID HLD: Trigs >1500. Discussed dangers of severely elevated lipids and tryglicerides. His lipase on 02/22 was normal at 23. He makes poor dietary choices but is also very limited in terms of food choices. Will eat whatever the staff give me and does not advocate for a heart healthy diet. Needs to be on high intensity statin. D/C pravastatin 80mg Start Rosuvastatin 20mg QD. Plan to titrate to max dose depending on tolerability Continue Zetia 10mg QD Recheck FLP in 6 weeks . 02/24/2023
--- OUTSIDE RECORDS SUMMARY | 2023-04-01 09:36 | XMS_ITS | CCD ---
Author Name Chelo Fonseca PA-C Address [address] [place] [address] Phone Organization [facility] Phone Care Team Providers Care Racing Secretary Name Role Phone Chelo Fonseca PA-C Primary Care Provider Unavaila ble Chelo Fonseca PA-C Chronic Care Management Unavai labcal Summary Purpose DataExchange Insurance Providers Payer name Policy type / Coverage type Covered constitution party ID Effective Begin Date Effective End Date [place] Part B [id number] Unknown Unknown [place] Part B [id number] Unknown Unknown Family history Sister Brittany Suggs Diagnosis Age At Onset No Family Disease Entered N/A Runs in the family Diagnosis Age At Onset No Known Diseases N/A Sister Blanka Mcduffie Diagnosis Age At Onset No Family Disease Entered N/A Social History Social History Element Codes Description Effec tive Dates Marital status Unknown Single 10/07/2021 Living arrangements Unknown [facility] 09/03/[address]: 7308146 Non-Smoker / No History of Smoking 09/02/[address]: 769472657 No Alcohol Consum ption 09/02/2020 Allergies, Adverse Reactions, Alerts Substance Reaction Codes Entered Date Inactivated Date Status LISINOPRIL RxNorm: 42288 02/12/2020 No Inactive Da te Active Metformin [...] F33. 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 supervisor intermediates (current) use of insulin ICD-10: Z79.4 02/10 [...] Instructions clotrimazole 1 % topical cream RxNorm: 766701 Take apply topically to abdominal folds twice daily for 14 days 03/12/20 023 Active rosuvastatin 20 mg tablet RxNorm: 487649 Take 1 Tablet(s) Oral QD 02/26/20 23 024 Active d/c pravastatin 80mg Ozempic 1 mg/dose (4 mg/3 mL) subcutaneous pen injector RxNorm: 2762295 Inject 1 Milligram(s) Subcutaneous QW once a week 02/20/20 23 023 Inactive pregabalin 150 mg capsule RxNorm: 589290 Take 1 Capsule(s) Oral HS at bed time 02/19/20 23 023 Inactive pregabalin 100 mg capsule RxNorm: 748426 Take 1 Capsule(s) Oral QAM every morning 02/18/20 23 024 Active FreeStyle Chema 2 Sensor kit RxNorm: use as directed 02/04/20 23 024 Active venlafaxine ER 75 mg capsule,extended release 24 hr RxNorm: 134325 Take 3 Capsule(s) Oral QD 02/04/20 23 023 Inactive FreeStyle Chema 2 Sensor kit RxNorm: use as directed 02/04/20 23 023 Inactive fluconazole 150 mg tablet RxNorm: 553410 Take 1 Tablet(s) Oral on day 3 and on day 6 02/03/20 23 024 Active chlorthalidone 25 mg tablet RxNorm: 242415 Take 1 Tablet(s) Oral QAM every morning 02/03/20 23 No Stop Date Active venlafaxine ER 150 mg capsule,extended release 24 hr RxNorm: 276790 Take 1 Capsule(s) Oral QD 02/03/20 23 023 Inactive acetaminophen 500 mg tablet RxNorm: 069719 1 TABLET ORALLY 3 TIMES DAILY (MAX APAP:4GM/24HR) 12/15/19 23 024 Active potassium chloride ER 20 mEq tablet,extended release RxNorm: 679994 Take 1 Tablet(s) Oral BID 12/09/19 23 023 Inactive d/c 20mEq once daily (sent from hospital) clotrimazole 1 % topical cream RxNorm: 114277 apply 1g topically to top of feet and in between toes BID 12/09/19 23 023 Inactive nystatin 100,000 unit/gram topical powder RxNorm: 827978 APPLY TO AFFECTED AREAS TOPICALLY 2 TIMES DAILY 11/21/19 024 Active Nystop 100,000 unit/gram topical powder RxNorm: 877093 Apply to abd folds, under breasts and L side of groin Topical BID x 14 days, then BID PRN 11/20/19 023 Inactive dx: yeast dermatitis [place] Ultra Strength 4 %-30 %-10 % topical cream RxNorm: 734499 Apply 1 Gram(s) Topical QID PRN to feet and legs for neuropathic pain 11/11/19 024 Active hydrocortisone 2.5 % topical cream RxNorm: 086939 Apply 1/2 Gram(s) Topical BID as needed 11/10/19 No Stop Date Active clotrimazole 1 % topical cream RxNorm: 916990 Apply 1/2 Gram(s) Topical BID Apply to affected areas of groin, periarea, and abdominal topically 2 times daily 11/10/19 023 Inactive Levemir FlexPen 100 unit/mL (3 mL) solution subcutaneous insulin pen RxNorm: 409467 Inject 30 Unit(s) Subcutaneous BID 10/07/19 024 Active Humulin R U-500 (Concentrated) Insulin 500 unit/mL subcutaneous soln RxNorm: 428056 Inject 100 Unit(s) Subcutaneous TID 10/07/19 024 Active Ozempic 0.25 mg or 0.5 mg (2 mg/3 mL) subcutaneous pen injector RxNorm: 6879783 Inject 1/2 Milligram(s) Subcutaneous QW once a week 10/07/19 024 Active aripiprazole 15 mg tablet RxNorm: 292910 1/2 TAB (7.5MG) ORALLY DAILY (DX:MAJOR DEPRESSIVE DISORDER) 09/23/19 023 Inactive Lancets,Thin 28 gauge RxNorm: Use 1 as directed QID 09/15/1909/07/2 024 Active Accu-Chek Guide test strips RxNorm: Use 1 Test Strip QID 09/15/19 23 023 Inactive ok to substitute with any covered alternative test strip torsemide 20 mg tablet RxNorm: 241752 Take 1 Tablet(s) Oral BID 09/09/19 23 024 Active d/c once daily dosing carvedilol 25 mg tablet RxNorm: 699787 Take 1 Tablet(s) Oral QD 08/25/19 23 024 Active pregabalin 150 mg capsule RxNorm: 889471 1 Capsule(s) Oral HS at bed time 08/18/19 23 023 Inactive pregabalin 100 mg capsule RxNorm: 890653 1 Capsule(s) Oral QAM every morning 08/18/19 23 023 Inactive carvedilol 25 mg tablet RxNorm: 781167 1 Tablet(s) Oral QD 07/28/19 23 023 Inactive lisinopril 20 mg tablet RxNorm: 670231 Give 1 Tablet(s) Oral QD 07/28/19 23 023 Inactive Lyrica 150 mg capsule RxNorm: 095532 Take 1 Capsule(s) Oral QHS every night at bedtime 07/19/19 23 023 Inactive d/c 100mg dose Diflucan 150 mg tablet RxNorm: 818583 Take 1 Tablet(s) Oral QD repeat on day 3 and 6 07/19/19 23 023 Inactive pregabalin 100 mg capsule RxNorm: 106163 Take 1 Capsule(s) Oral QAM every morning 07/19/19 23 023 Inactive gatifloxacin 0.5 % eye drops RxNorm: 961973 Instill 1 Drop(s) as directed TID Instill 1 drop in to affected eye(s) starting 1 day prior to surgery and continue until gone (do not exceed 4 weeks). 07/13/19 23 023 Inactive carvedilol 25 mg tablet RxNorm: 210735 2 Tablet(s) Oral BID 07/13/19 23 023 Inactive Humulin R Regular U-100 Insulin 100 unit/mL injection solution RxNorm: 713254 85 Unit(s) Injection TID 07/13/19 23 023 Inactive ketorolac 0.5 % eye drops RxNorm: 564795 Instill 1 Drop(s) as directed QID Instill 1 drop into affected eye(s) 4 times daily starting 1 day prior to surgery and continue until gone (do not exceed 4 weeks). 07/13/19 23 023 Inactive Diflucan 150 mg tablet RxNorm: 652589 Take 1 Tablet(s) Oral QD repeat on day 3 and 6 06/30/19 23 023 Inactive Accu-Chek Guide test strips RxNorm: Use 1 Test Strip QID Use 1 test strip to monitor blood glucose 4 times daily and as needed. Dx:E11.42. 06/23/19 23 023 Inactive ok to substitute with any covered alternative test strip dextromethorphan-gu aifenesin 10 mg-100 mg/5 mL oral liquid RxNorm: 269576 Take 10 Milliliter(s) Oral every 4 hours as needed for cough 06/19/19 23 023 Inactive dextromethorphan-gu aifenesin 10 mg-100 mg/5 mL oral liquid RxNorm: 779261 Take 10 Milliliter(s) Oral every 4 hours as needed for cough 06/19/19 23 023 Inactive Lyrica 150 mg capsule RxNorm: 696623 Take 1 Capsule(s) Oral QHS every night at bedtime 06/18/19 23 023 Inactive d/c 100mg dose aripiprazole 15 mg tablet RxNorm: 598055 /2 TAB (7.5MG) ORALLY DAILY (DX:MAJOR DEPRESSIVE DISORDER) 06/05/19 23 023 Inactive pregabalin 100 mg capsule RxNorm: 729333 1 Capsule(s) Oral QAM every morning 06/02/19 23 023 Inactive Banophen 50 mg capsule RxNorm: 1480015 Take 1 Capsule(s) Oral Q6H every 6 hours as needed 05/19/19 23 No Stop Date Active Novolog Flexpen U-100 Insulin aspart 100 unit/mL (3 mL) subcutaneous RxNorm: 3745192 Inject 10 Unit(s) Subcutaneous QHS every night at bedtime with nighttime snack 04/08/20 Inactive Novolog Flexpen U-100 Insulin aspart 100 unit/mL (3 mL) subcutaneous RxNorm: 8275259 Inject 42 Unit(s) Subcutaneous TID in addition to sliding scale 04/08/20 Inactive d/c 36u albuterol sulfate HFA 90 mcg/actuation aerosol inhaler RxNorm: 4999108 Take 2 Puff(s) Inhalation Q4H every four hours as needed as needed for SOB, cough, or wheezing 04/07/20 030 Active Banophen 50 mg capsule RxNorm: 8049894 Take 1 Capsule(s) Oral Q6H every 6 hours as needed 04/06/20 023 Inactive diphenhydramine 50 mg tablet RxNorm: 7186641 Take 1 Tablet(s) Oral Q6H every 6 hours as needed 04/06/20 022 Inactive diphenhydramine 50 mg tablet RxNorm: 0326954 1 Tablet(s) Oral Q6H every 6 hours as needed 04/06/20 022 Inactive Abilify 15 mg tablet RxNorm: 115802 1/2 Tablet(s) Oral QD 03/10/20 023 Inactive Shingrix (PF) 50 mcg/0.5 mL intramuscular suspension, kit RxNorm: 4578462 Administer 1/2 Milliliter(s) Intramuscular QD one time shingrix step 2 ( step 1 given 11/04/21) WITH needle - Nursing please administer upon arrival and once administered post a bridge message with date of administration, technical research scientist, expiration date, and lot# so we can update [facility] 02/18/20 22 022 Inactive dispense with needle Shingrix (PF) 50 mcg/0.5 mL intramuscular suspension, kit RxNorm: 2337446 Administer 1/2 Milliliter(s) Intramuscular QD one time shingrix step 2 ( step 1 given 11/04/21) WITH needle - Nursing please administer upon arrival and once administered post a bridge message with date of administration, technical research scientist, expiration date, and lot# so we can update [facility] 02/18/20 22 022 Inactive dispense with needle polyethylene glycol 3350 17 gram/dose oral powder RxNorm: 854736 Take 17=1 capful Gram(s) Oral QD mix with 4-8oz of liquid 01/08/20 023 Inactive take this in addition to BID prn order Lyrica 100 mg capsule RxNorm: 353390 Take 1 Capsule(s) Oral QAM every morning 01/08/20 22 022 Inactive d/c 50mg dose acetaminophen 500 mg tablet RxNorm: 317104 Take 1 Tablet(s) Oral TID 01/08/20 22 022 Inactive d/c PRN order Lyrica 150 mg capsule RxNorm: 616115 Take 1 Capsule(s) Oral QHS every night at bedtime 01/08/20 22 023 Inactive d/c 100mg dose Abilify 5 mg tablet RxNorm: 747144 Take 1 Tablet(s) Oral QD take 1 tab po QD #30 refill 5 dx: MDD 12/12/19 22 022 Inactive Abilify 5 mg tablet RxNorm: 513404 Take 1 Tablet(s) Oral QD take 1 tab po QD #30 refill 5 dx: MDD 12/12/19 22 022 Inactive Novolog Flexpen U-100 Insulin aspart 100 unit/mL (3 mL) subcutaneous RxNorm: 2298640 Inject 42 Unit(s) Subcutaneous TID in addition to sliding scale 12/10/19 Inactive d/c 36u chlorthalidone 25 mg tablet RxNorm: 371271 Take 1 Tablet(s) Oral QAM every morning 12/10/19 023 Inactive pregabalin 50 mg capsule RxNorm: 262198 Take 1 Capsule(s) Oral QAM every morning 11/12/19 22 022 Inactive tetanus-diphtheria toxoids-Td 2 Lf unit-2 Lf unit/0.5 mL IM suspension RxNorm: 139 Take 0.5 Miscellaneous Intramuscular 11/12/19 22 022 Inactive need tdap - nursing to administer upon arrival pregabalin 50 mg capsule RxNorm: 707329 Take 1 Capsule(s) Oral QAM every morning 10/16/19 22 022 Inactive pregabalin 50 mg capsule RxNorm: 688835 Take 1 Capsule(s) Oral QAM every morning 10/16/19 22 022 Inactive pregabalin 50 mg capsule RxNorm: 485993 1 Capsule(s) Oral QAM every morning 10/15/19 22 022 Inactive Shingrix (PF) 50 mcg/0.5 mL intramuscular suspension, kit RxNorm: 1452473 Administer 1/2 Milliliter(s) Intramuscular one time Nursing please administer upon arrival and once administered post a bridge message with date of administration, technical research scientist, expiration date, and lot# so we can update [facility]. 10/09/19 22 022 Inactive shingrix step 1 Shingrix (PF) 50 mcg/0.5 mL intramuscular suspension, kit RxNorm: 9619079 Administer 1/2 Milliliter(s) Intramuscular one time Nursing please administer upon arrival and once administered post a bridge message with date of administration, technical research scientist, expiration date, and lot# so we can update [facility]. 10/09/19 22 022 Inactive shingrix step 1 cholecalciferol (vitamin D3) 1,250 mcg (50,000 unit) capsule RxNorm: 572900 Take 1 Capsule(s) Oral QW once a [...] aspart 100 unit/mL (3 mL) subcutaneous RxNorm: 6255406 Inject 10 Unit(s) Subcutaneous QHS every night at bedtime with nighttime snack 10/08/19 22 022 Inactive Shingrix (PF) 50 mcg/0.5 mL intramuscular suspension, kit RxNorm: 1939868 ADMINISTER 2-DOSE SERIES PER CDC GUIDELINES 10/08/19 22 Active Shingrix (PF) 50 mcg/0.5 mL intramuscular suspension, kit RxNorm: 0095504 ADMINISTER 2-DOSE SERIES PER CDC GUIDELINES 10/08/19 22 Inactive Novolog Flexpen U-100 Insulin aspart 100 unit/mL (3 mL) subcutaneous RxNorm: 8728222 Inject 36 Unit(s) Subcutaneous TID in addition to sliding scale 10/08/19 Inactive Novofine Autocover 30 gauge x 1/3 needle RxNorm: Use 1 Miscellaneous UD as directed Use 1 needle as directed to administer insulin 5 times a day Dx:E11.42. 10/03/19 Inactive ok to substitute with any covered alternative pen needle benzoyl peroxide 10 % topical cleanser RxNorm: 280897 Apply 1 Application Topical QD apply to face, wash rinse and dry once daily (may change to QOD if drying) 08/19/19 022 Inactive (%covered by insurance) #60ml refill 11 dx: acne benzoyl peroxide 10 % topical cleanser RxNorm: 662030 Apply 1 Application Topical QD apply to face, wash rinse and dry once daily (may change to QOD if drying) 08/19/19 022 Inactive (%covered by insurance) #60ml refill 11 dx: acne benzoyl peroxide 10 % topical cleanser RxNorm: 825699 Apply 1 Application Topical QD apply to face, wash rinse and dry once daily (may change to QOD if drying) 08/19/19 022 Inactive (%covered by insurance) #60ml refill 11 dx: acne Lyrica 50 mg capsule RxNorm: 290522 Take 1 Capsule(s) Oral QAM every morning Take 1 capsule by mouth once daily 08/19/19 22 Inactive benzoyl peroxide 10 % topical cleanser RxNorm: 048451 Apply 1 Application Topical QD apply to face, wash rinse and dry once daily (may change to QOD if drying) 08/19/19 22 022 Inactive (%covered by insurance) #60ml refill 11 dx: acne Lyrica 100 mg capsule RxNorm: 622767 Take 1 Capsule(s) Oral QHS every night at bedtime Take 1 capsule by mouth once daily at bedtime 08/19/19 22 022 Inactive Lyrica 100 mg capsule RxNorm: 068805 Take 1 Capsule(s) Oral QHS every night at bedtime Take 1 capsule by mouth once daily at bedtime 08/16/19 22 022 Inactive Lyrica 50 mg capsule RxNorm: 761266 Take 1 Capsule(s) Oral QAM every morning Take 1 capsule by mouth once daily 08/16/19 22 022 Inactive Levemir FlexTouch U-100 Insulin 100 unit/mL (3 mL) subcutaneous pen RxNorm: 274245 Inject 86 Unit(s) Subcutaneous BID 08/05/19 22 022 Inactive d/c 83units BID Lyrica 100 mg capsule RxNorm: 946258 Take 1 Capsule(s) Oral QHS every night at bedtime Take 1 capsule by mouth once daily at bedtime 07/14/19 22 022 Inactive Lyrica 50 mg capsule RxNorm: 839368 Take 1 Capsule(s) Oral QAM every morning Take 1 capsule by mouth once daily 07/14/19 22 022 Inactive Levemir FlexTouch U-100 Insulin 100 unit/mL (3 mL) subcutaneous pen RxNorm: 977478 Inject 83 Unit(s) Subcutaneous BID 07/08/19 22 [...] 30 mg tablet,extended release 24 hr RxNorm: 503484 Take 1 Tablet(s) Oral QD 05/05/20 21 No Stop Date Active hydralazine 50 mg tablet RxNorm: 756500 Take 1 Tablet(s) Oral QID 05/05/20 21 022 Inactive venlafaxine ER 225 mg tablet,extended release 24 hr RxNorm: 336960 Take 1 Tablet(s) Oral QD 05/05/20 21 021 Inactive venlafaxine ER 225 mg tablet,extended release 24 hr RxNorm: 801054 Take 1 Tablet(s) Oral QD 05/05/20 21 022 Inactive hydralazine 50 mg tablet RxNorm: 728779 Take 1 Tablet(s) Oral QID 05/05/20 21 021 Inactive aspirin 81 mg tablet,delayed release RxNorm: 328969 Take 1 Tablet(s) Oral QD 03/31/20 21 022 Inactive Zetia 10 mg tablet RxNorm: 691991 Take 1 Tablet(s) Oral QD 03/31/20 21 Inactive Vitamin D2 1,250 mcg (50,000 unit) capsule RxNorm: 6987164 Take 1 Capsule(s) Oral QW once a week x 12 weeks 03/31/20 022 Inactive Vitamin D2 1,250 mcg (50,000 unit) capsule RxNorm: 3116935 Take 1 Capsule(s) Oral QW once a week 03/31/20 021 Inactive Zetia 10 mg tablet RxNorm: 891011 Take 1 Tablet(s) Oral QD 03/31/20 021 Inactive hydralazine 25 mg tablet RxNorm: 919331 Take 1 Tablet(s) Oral QID 03/31/20 021 Inactive hydralazine 25 mg tablet RxNorm: 364238 Take 1 Tablet(s) Oral QID 03/31/20 021 Inactive hydralazine 10 mg tablet RxNorm: 713402 Take 1 Tablet(s) Oral QID 03/03/20 021 Inactive cephalexin 500 mg tablet RxNorm: 670244 Take 1 Tablet(s) Oral QID 02/27/20 021 Inactive cephalexin 500 mg tablet RxNorm: 695583 Take 1 Tablet(s) Oral QID 02/27/20 021 Inactive lisinopril 40 mg tablet RxNorm: 486795 Take 1 Tablet(s) Oral QD 02/11/20 023 Inactive Eliquis 5 mg tablet RxNorm: 5791792 Take 1 Tablet(s) Oral BID 01/05/20 21 022 Inactive Eliquis 5 mg tablet RxNorm: 2352309 Take 2 Tablet(s) Oral QD 01/01/20 21 021 Inactive Lyrica 50 mg capsule RxNorm: 561302 Take 1 Capsule(s) Oral QAM every morning 12/24/19 21 021 Inactive Lyrica 100 mg capsule RxNorm: 678432 Take 1 Capsule(s) Oral QHS every night at bedtime 12/24/19 21 021 Inactive clotrimazole 1 % topical cream RxNorm: 617959 Apply to right foot and toes Topical BID 12/04/19 023 Inactive metoprolol succinate ER 200 mg tablet,extended release 24 hr RxNorm: 157998 Take 1 Tablet(s) Oral QD 12/04/19 023 Inactive ciprofloxacin 500 mg tablet RxNorm: 796970 Take 1 Tablet(s) Oral QD 11/30/19 021 Inactive DX ofloxacin otic drops Accu-Chek Guide test strips RxNorm: USE 1 TO CHECK GLUCOSE 4 TIMES DAILY AND NEEDED 11/15/19 023 Inactive Blood Glucose Test strips RxNorm: Use 1 Test Strip QID at PRN 11/05/19 023 Inactive E11.42 lisinopril 30 mg tablet RxNorm: 112972 Take 1 Tablet(s) Oral QD 10/30/19 021 Inactive lisinopril 20 mg tablet RxNorm: 653532 Take 1 Tablet(s) Oral QD 10/23/19 021 Inactive lisinopril 20 mg tablet RxNorm: 212724 Take 1 Tablet(s) Oral QD 10/23/19 021 Inactive lisinopril 10 mg tablet RxNorm: 570841 Take 1 Tablet(s) Oral QD 10/02/19 021 Inactive icosapent ethyl 1 gram capsule RxNorm: 9958815 Take 2 Capsule(s) (2 gm) Oral BID with meals 09/12/19 022 Inactive Okay to dispense one 2gm tab if you have that available. icosapent ethyl 1 gram capsule RxNorm: 8648740 Take 2 Capsule(s) Oral BID 09/12/19 021 Inactive Okay to dispense one 2gm tab if you have that available. amlodipine 10 mg tablet RxNorm: 647776 Take 1 Tablet(s) Oral QD 09/04/19 022 Inactive aspirin 81 mg tablet,delayed release RxNorm: 350277 Take 1 Tablet(s) Oral QD 09/04/19 021 Inactive Levemir FlexTouch U-100 Insulin 100 unit/mL (3 mL) subcutaneous pen RxNorm: 954083 Inject 150 Unit(s) Subcutaneous BID 09/04/19 022 Inactive venlafaxine ER 150 mg tablet,extended release 24 hr RxNorm: 277483 Take 1 Tablet(s) Oral QD 09/04/19 Inactive clotrimazole-betame thasone 1 %-0.05 % topical cream RxNorm: 365704 Apply to rash on red area on left abdomen/chest Topical BID 08/10/19 Inactive amlodipine 5 mg tablet RxNorm: 073557 Take 1 Tablet(s) Oral QD 07/31/19 Inactive cephalexin 500 mg tablet RxNorm: 584909 Take 1 Tablet(s) Oral BID BID - Twice Daily 07/31/19 Inactive Start 08/01/20 pantoprazole 40 mg tablet,delayed release RxNorm: 717582 Take 1 Tablet(s) Oral QAM every morning 07/08/19 Inactive senna 8.6 mg tablet RxNorm: 058161 Take 1 Tablet(s) Oral QD 07/08/19 022 Inactive carbamazepine 200 mg tablet RxNorm: 724409 Take 1 Tablet(s) Oral BID 07/08/19 022 Inactive clopidogrel 75 mg tablet RxNorm: 929639 Take 1 Tablet(s) Oral QD 07/08/19 Inactive Blood Glucose Test strips RxNorm: Use 1 Test Strip QID at PRN 07/08/19 Inactive E11.42 Novolog Flexpen U-100 Insulin aspart 100 unit/mL (3 mL) subcutaneous RxNorm: 0390608 Administer per sliding scale Milliliter(s) Subcutaneous TID 151-200: 10 u; 201-250: 20 u; 251-300: 30 u; 301-350: 40 u; 351-400: 50 u. 07/08/19 022 Inactive lisinopril 5 mg tablet RxNorm: 812107 Take 1 Tablet(s) Oral QD 07/08/19 021 Inactive Novolog Flexpen U-100 Insulin aspart 100 unit/mL (3 mL) subcutaneous RxNorm: 4395613 Inject 85 Unit(s) Subcutaneous TID 07/08/19 022 Inactive pravastatin 80 mg tablet RxNorm: 584208 Take 1 Tablet(s) Oral QHS every night at bedtime 07/08/19 023 Inactive clotrimazole 1 % topical cream RxNorm: 433425 Apply to bilateral groin areas Topical BID 07/08/19 21 022 Inactive metoprolol succinate ER 200 mg tablet,extended release 24 hr RxNorm: 152790 Take 1 Tablet(s) Oral QD 07/08/19 21 021 Inactive Vitamin D3 25 mcg (1,000 unit) tablet RxNorm: 010997 Take 1 Tablet(s) Oral QD 07/08/19 021 Inactive isosorbide dinitrate 30 mg tablet RxNorm: 497852 Take 1 Tablet(s) Oral QD 07/08/19 021 Inactive Levemir FlexTouch U-100 Insulin 100 unit/mL (3 mL) subcutaneous pen RxNorm: 851073 Inject 140 Unit(s) Subcutaneous BID 07/08/19 021 Inactive torsemide 20 mg tablet RxNorm: 797210 Take 1 Tablet(s) Oral QD 07/08/19 023 Inactive venlafaxine 75 mg tablet RxNorm: 600605 Take 1 Tablet(s) Oral QD 07/08/19 021 Inactive acetaminophen 500 mg tablet RxNorm: 189790 Take 1 Tablet(s) Oral TID as needed for headache 06/18/19 021 Inactive acetaminophen 500 mg tablet RxNorm: 571872 Take 1 Tablet(s) Oral TID as needed for headache 06/18/19 021 Inactive Lyrica 100 mg capsule RxNorm: 332407 Take 1 Capsule(s) Oral QHS every night at bedtime 06/11/19 021 Inactive Lyrica 50 mg capsule RxNorm: 024656 Take 1 Capsule(s) Oral QAM every morning 06/10/19 21 021 Inactive hydrocortisone 2.5 % topical cream RxNorm: 377531 Apply to bilateral groin creases Topical BID 05/15/20 20 021 Inactive clotrimazole 1 % topical cream RxNorm: 921252 Apply to bilateral groin areas Topical BID 05/15/20 20 Inactive Lyrica 50 mg capsule RxNorm: 930488 Take 1 Capsule(s) Oral QAM every morning 05/14/20 20 020 Inactive Lyrica 100 mg capsule RxNorm: 449404 Take 1 Capsule(s) Oral QHS every night [...] Inactive Nystop 100,000 unit/gram topical powder RxNorm: 413112 Apply to abd folds, under breasts and L side of groin Topical BID x 14 days, then BID PRN 04/08/20 20 Inactive dx: yeast dermatitis Lyrica 100 mg capsule RxNorm: 824072 Take 1 Capsule(s) Oral QHS every night at bedtime 03/13/20 20 Inactive Lyrica 50 mg capsule RxNorm: 708699 Take 1 Capsule(s) Oral QAM every morning 03/13/20 20 Inactive ketoconazole 2 % shampoo RxNorm: 371329 Apply Topical two times a week with showers 03/11/20 20 Inactive cholecalciferol (vitamin D3) 50 mcg (2,000 unit) tablet RxNorm: 499688 Take 1 Tablet(s) Oral QD 03/11/20 021 Inactive Zetia 10 mg tablet RxNorm: 841616 Take 1 Tablet(s) Oral QD 03/07/20 021 Inactive Zetia 10 mg tablet RxNorm: 104792 Take 1 Tablet(s) Oral QD 03/07/20 20 Inactive Lyrica 50 mg capsule RxNorm: 492921 Take 1 Capsule(s) Oral QAM every morning 02/15/20 Inactive Lyrica 100 mg capsule RxNorm: 685052 Take 1 Capsule(s) Oral QHS every night at bedtime 02/15/20 Inactive Lyrica 100 mg capsule RxNorm: 887327 Take 1 Capsule(s) Oral QHS every night at bedtime 02/15/20 Inactive Lyrica 50 mg capsule RxNorm: 935786 Take 1 Capsule(s) Oral QAM every morning 02/15/20 Inactive polyethylene glycol 3350 17 gram/dose oral powder RxNorm: 819883 Take 17=1 capful Gram(s) Oral BID as needed mix with 4-8oz of liquid 06/12/19 22 Active metoprolol succinate ER 200 mg tablet,extended release 24 hr RxNorm: 102173 Take 1 Tablet(s) Oral QD 08/12/19 23 Active loperamide 2 mg capsule RxNorm: 292494 Take 1 Capsule(s) Oral QID as needed 06/12/19 22 Active hydralazine 50 mg tablet RxNorm: 440819 Take 1 Tablet(s) Oral QID 08/12/19 23 Active venlafaxine ER 75 mg capsule,extended release 24 hr RxNorm: 006704 Take 3 Capsule(s) Oral QD 06/12/19 22 023 Inactive icosapent ethyl 1 gram capsule RxNorm: 8747937 Take 2 Capsule(s) (2 gm) Oral BID with meals 10/07/19 23 023 Inactive Okay to dispense one 2gm tab if you have that available. Levemir FlexTouch U-100 Insulin 100 unit/mL (3 mL) subcutaneous pen RxNorm: 968428 Inject 80 Unit(s) Subcutaneous BID 07/14/19 23 023 Inactive Novolog Flexpen U-100 Insulin aspart 100 unit/mL (3 mL) subcutaneous RxNorm: 6121963 Insert 30 Unit(s) Subcutaneous TID with meals 10/08/19 22 022 Inactive Medication Administered No Medication Administered data Vital Signs Date Vital 03/10/2023 Height: 5'5 Code: 8302-2 Weight : Code: 3141-9 Reason For Visit No Reason For Visit data Encounters Encounter Performer Location Location Address Codes Date ([address]) Home or Residence Visit Est Pt - [...] 2 diabetes mellitus[ICD10: E11.22] Chelo Fonseca [address] [place] [address] [address] [place] [id number] CPT-4: 45917 03/10/2023 Plan of Care Planned Activity Notes Codes Status Date Care Plan: Lipid Panel (LP) draw the week of 04/01/23 Pending 03/12/2023 Patient Education: Patient Medication Summary Completed 03/10/2023 Patient Education: Influenza Completed 03/10/2023 Appointment: Sandra Clark WPtel: [address] [phone] Telehealth Psych Fol low Up 12/09/2022 Appointment: Tapan Shirley WPtel: [address] [phone] TCM 10/26/2022 Referral: [facility] WPtel: [address], [address] [id number] Referral Records Received 09/21/2022 Appointment: Tapan Shirley WPtel: [address] [facility] [address] [id number] [place] F/U 08/11/2022 Appointment: Tapan Shirley WPtel: [address] [facility] [address] [id number] [place] F/U 07/14/2022 Appointment: Tapan Shirley WPtel: [address] [facility] [address] [id number] [place] F/U 02/10/2022 Referral: [facility] WPtel: [address] [facility] [address] [facility] [address] [id number] [place] Referral Completed 05/28/2021 Referral: General Cardiology [...] Sister Jyotsna involved in his care cell# [phone] Guardian: Giulia (tapan met in person 09/01/21), now has Lexii (same group as giulia)Lab Schedule: * 02/08/2023 Hyperlipidemia Lab order: FLP Diabetes DM2: High dose insulin. Needs to [...] Needs to be on high intensity statin. Continue Rosuvastatin 20mg QD. Plan to titrate to max dose depending on tolerability Continue Zetia 10mg QD Recheck FLP Candidal intertrigo Sending clotrimazole 1% cream BID x 14 days BMI 60.0-69.9, adult Discussed attempting to participate in more activity around the house and exercise as tolerated. On ozempic . 03/10/2023
--- OUTSIDE RECORDS SUMMARY | 2023-04-01 09:36 | XMS_ITS | CCD ---
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 Market Research Manager Name Role Phone Chelo Fonseca PA-C Primary Care Provider Unavaila ble Chelo Fonseca PA-C Chronic Care Management Nicole archer Summary Purpose DataExchange Insurance Providers Payer name Policy type / Coverage type Covered alliance party ID Effective Begin Date Effective End Date [place] Part B [id number] Unknown Unknown [place] Part B [id number] Unknown Unknown Family history Sister Brittany Suggs [...] Home 09/03/[address]: 0936843 Non-Smoker / No History of Smoking 09/02/[address]: 059191913 No Alcohol Consum ption 09/02/2020 Allergies, Adverse Reactions, Alerts Substance Reaction Codes Entered Date Inactivated Date Status LISINOPRIL RxNorm: 82688 02/12/2020 No Inactive Da te Active Metformin [...] F33. 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 [...] Instructions clotrimazole 1 % topical cream RxNorm: 092696 Take apply topically to abdominal folds twice daily for 14 days 03/12/20 23 023 Active Ozempic 1 mg/dose (4 mg/3 mL) subcutaneous pen injector RxNorm: 1774425 Inject 1 Milligram(s) Subcutaneous QW once a week 03/11/20 23 023 Inactive rosuvastatin 20 mg tablet RxNorm: 341886 Take 1 Tablet(s) Oral QD 02/26/20 23 024 Active d/c pravastatin 80mg Ozempic 1 mg/dose (4 mg/3 mL) subcutaneous pen injector RxNorm: 3031063 Inject 1 Milligram(s) Subcutaneous QW once a week 02/20/20 23 023 Inactive pregabalin 150 mg capsule RxNorm: 819621 Take 1 Capsule(s) Oral HS at bed time 02/19/20 23 023 Inactive pregabalin 100 mg capsule RxNorm: 903376 Take 1 Capsule(s) Oral QAM every morning 02/18/20 23 024 Active FreeStyle Chema 2 Sensor kit RxNorm: use as directed 02/04/20 23 024 Active venlafaxine ER 75 mg capsule,extended release 24 hr RxNorm: 324555 Take 3 Capsule(s) Oral QD 02/04/20 23 023 Inactive FreeStyle Chema 2 Sensor kit RxNorm: use as directed 02/04/20 23 023 Inactive fluconazole 150 mg tablet RxNorm: 754130 Take 1 Tablet(s) Oral on day 3 and on day 6 02/03/20 23 024 Active chlorthalidone 25 mg tablet RxNorm: 893274 Take 1 Tablet(s) Oral QAM every morning 02/03/20 23 No Stop Date Active venlafaxine ER 150 mg capsule,extended release 24 hr RxNorm: 501576 Take 1 Capsule(s) Oral QD 02/03/20 23 023 Inactive acetaminophen 500 mg tablet RxNorm: 101392 1 TABLET ORALLY 3 TIMES DAILY (MAX APAP:4GM/24HR) 12/15/19 23 024 Active potassium chloride ER 20 mEq tablet,extended release RxNorm: 687403 Take 1 Tablet(s) Oral BID 12/09/19 23 023 Inactive d/c 20mEq once daily (sent from hospital) clotrimazole 1 % topical cream RxNorm: 971700 apply 1g topically to top of feet and in between toes BID 12/09/19 23 023 Inactive nystatin 100,000 unit/gram topical powder RxNorm: 092912 APPLY TO AFFECTED AREAS TOPICALLY 2 TIMES DAILY 11/21/19 024 Active Nystop 100,000 unit/gram topical powder RxNorm: 011549 Apply to abd folds, under breasts and L side of groin Topical BID x 14 days, then BID PRN 11/20/19 023 Inactive dx: yeast dermatitis [place] Ultra Strength 4 %-30 %-10 % topical cream RxNorm: 049780 Apply 1 Gram(s) Topical QID PRN to feet and legs for neuropathic pain 11/11/19 024 Active hydrocortisone 2.5 % topical cream RxNorm: 102094 Apply 1/2 Gram(s) Topical BID as needed 11/10/19 No Stop Date Active clotrimazole 1 % topical cream RxNorm: 505657 Apply 1/2 Gram(s) Topical BID Apply to affected areas of groin, periarea, and abdominal topically 2 times daily 11/10/19 023 Inactive Levemir FlexPen 100 unit/mL (3 mL) solution subcutaneous insulin pen RxNorm: 101000 Inject 30 Unit(s) Subcutaneous BID 10/07/19 024 Active Humulin R U-500 (Concentrated) Insulin 500 unit/mL subcutaneous soln RxNorm: 877038 Inject 100 Unit(s) Subcutaneous TID 10/07/19 024 Active Ozempic 0.25 mg or 0.5 mg (2 mg/3 mL) subcutaneous pen injector RxNorm: 5061203 Inject 1/2 Milligram(s) Subcutaneous QW once a week 10/07/19 024 Active aripiprazole 15 mg tablet RxNorm: 228999 1/2 TAB (7.5MG) ORALLY DAILY (DX:MAJOR DEPRESSIVE DISORDER) 09/23/19 023 Inactive Lancets,Thin 28 gauge RxNorm: Use 1 as directed QID 09/15/19 024 Active Accu-Chek Guide test strips RxNorm: Use 1 Test Strip QID 09/15/19 23 023 Inactive ok to substitute with any covered alternative test strip torsemide 20 mg tablet RxNorm: 073983 Take 1 Tablet(s) Oral BID 09/09/19 23 024 Active d/c once daily dosing carvedilol 25 mg tablet RxNorm: 316117 Take 1 Tablet(s) Oral QD 08/25/19 23 024 Active pregabalin 150 mg capsule RxNorm: 180622 1 Capsule(s) Oral HS at bed time 08/18/19 23 023 Inactive pregabalin 100 mg capsule RxNorm: 001781 1 Capsule(s) Oral QAM every morning 08/18/19 23 023 Inactive carvedilol 25 mg tablet RxNorm: 319370 1 Tablet(s) Oral QD 07/28/19 23 023 Inactive lisinopril 20 mg tablet RxNorm: 080273 Give 1 Tablet(s) Oral QD 07/28/19 23 023 Inactive Lyrica 150 mg capsule RxNorm: 927399 Take 1 Capsule(s) Oral QHS every night at bedtime 07/19/19 23 023 Inactive d/c 100mg dose Diflucan 150 mg tablet RxNorm: 816341 Take 1 Tablet(s) Oral QD repeat on day 3 and 6 07/19/19 23 023 Inactive pregabalin 100 mg capsule RxNorm: 319672 Take 1 Capsule(s) Oral QAM every morning 07/19/19 23 023 Inactive gatifloxacin 0.5 % eye drops RxNorm: 880609 Instill 1 Drop(s) as directed TID Instill 1 drop in to affected eye(s) starting 1 day prior to surgery and continue until gone (do not exceed 4 weeks). 07/13/19 23 023 Inactive carvedilol 25 mg tablet RxNorm: 600559 2 Tablet(s) Oral BID 07/13/19 23 023 Inactive Humulin R Regular U-100 Insulin 100 unit/mL injection solution RxNorm: 768357 85 Unit(s) Injection TID 07/13/19 23 023 Inactive ketorolac 0.5 % eye drops RxNorm: 784737 Instill 1 Drop(s) as directed QID Instill 1 drop into affected eye(s) 4 times daily starting 1 day prior to surgery and continue until gone (do not exceed 4 weeks). 07/13/19 23 023 Inactive Diflucan 150 mg tablet RxNorm: 117312 Take 1 Tablet(s) Oral QD repeat on day 3 and 6 06/30/19 23 023 Inactive Accu-Chek Guide test strips RxNorm: Use 1 Test Strip QID Use 1 test strip to monitor blood glucose 4 times daily and as needed. Dx:E11.42. 06/23/19 23 023 Inactive ok to substitute with any covered alternative test strip dextromethorphan-gu aifenesin 10 mg-100 mg/5 mL oral liquid RxNorm: 132038 Take 10 Milliliter(s) Oral every 4 hours as needed for cough 06/19/19 23 023 Inactive dextromethorphan-gu aifenesin 10 mg-100 mg/5 mL oral liquid RxNorm: 832911 Take 10 Milliliter(s) Oral every 4 hours as needed for cough 06/19/19 23 023 Inactive Lyrica 150 mg capsule RxNorm: 750505 Take 1 Capsule(s) Oral QHS every night at bedtime 06/18/19 23 023 Inactive d/c 100mg dose aripiprazole 15 mg tablet RxNorm: 482372 /2 TAB (7.5MG) ORALLY DAILY (DX:MAJOR DEPRESSIVE DISORDER) 06/05/19 23 023 Inactive pregabalin 100 mg capsule RxNorm: 934918 1 Capsule(s) Oral QAM every morning 06/02/19 23 023 Inactive Banophen 50 mg capsule RxNorm: 6686109 Take 1 Capsule(s) Oral Q6H every 6 hours as needed 05/19/19 23 No Stop Date Active Novolog Flexpen U-100 Insulin aspart 100 unit/mL (3 mL) subcutaneous RxNorm: 7187993 Inject 10 Unit(s) Subcutaneous QHS every night at bedtime with nighttime snack 04/08/20 Inactive Novolog Flexpen U-100 Insulin aspart 100 unit/mL (3 mL) subcutaneous RxNorm: 5053547 Inject 42 Unit(s) Subcutaneous TID in addition to sliding scale 04/08/20 022 Inactive d/c 36u albuterol sulfate HFA 90 mcg/actuation aerosol inhaler RxNorm: 4173500 Take 2 Puff(s) Inhalation Q4H every four hours as needed as needed for SOB, cough, or wheezing 04/07/20 030 Active Banophen 50 mg capsule RxNorm: 2251744 Take 1 Capsule(s) Oral Q6H every 6 hours as needed 04/06/20 023 Inactive diphenhydramine 50 mg tablet RxNorm: 8937908 Take 1 Tablet(s) Oral Q6H every 6 hours as needed 04/06/20 022 Inactive diphenhydramine 50 mg tablet RxNorm: 6025734 1 Tablet(s) Oral Q6H every 6 hours as needed 04/06/20 022 Inactive Abilify 15 mg tablet RxNorm: 572005 1/2 Tablet(s) Oral QD 03/10/20 023 Inactive Shingrix (PF) 50 mcg/0.5 mL intramuscular suspension, kit RxNorm: 2501120 Administer 1/2 Milliliter(s) Intramuscular QD one time shingrix step 2 ( step 1 given 11/04/21) WITH needle - Nursing please administer upon arrival and once administered 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, 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, 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, 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 lot# so we can update [facility] 02/18/20 22 022 Inactive dispense with needle Shingrix (PF) 50 mcg/0.5 mL intramuscular suspension, kit RxNorm: 3814391 Administer 1/2 Milliliter(s) Intramuscular QD one time shingrix step 2 ( step 1 given 11/04/21) WITH needle - Nursing please administer upon arrival and once administered post a 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 message 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, 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, 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, 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 lot# so we can update [facility] 02/18/20 22 022 Inactive dispense with needle polyethylene glycol 3350 17 gram/dose oral powder RxNorm: 772656 Take 17=1 capful Gram(s) Oral QD mix with 4-8oz of liquid 01/08/20 22 023 Inactive take this in addition to BID prn order Lyrica 100 mg capsule RxNorm: 076695 Take 1 Capsule(s) Oral QAM every morning 01/08/20 22 022 Inactive d/c 50mg dose acetaminophen 500 mg tablet RxNorm: 367786 Take 1 Tablet(s) Oral TID 01/08/20 22 022 Inactive d/c PRN order Lyrica 150 mg capsule RxNorm: 854265 Take 1 Capsule(s) Oral QHS every night at bedtime 01/08/20 22 023 Inactive d/c 100mg dose Abilify 5 mg tablet RxNorm: 463758 Take 1 Tablet(s) Oral QD take 1 tab po QD #30 refill 5 dx: MDD 12/12/19 22 022 Inactive Abilify 5 mg tablet RxNorm: 466772 Take 1 Tablet(s) Oral QD take 1 tab po QD #30 refill 5 dx: MDD 12/12/19 22 022 Inactive Novolog Flexpen U-100 Insulin aspart 100 unit/mL (3 mL) subcutaneous RxNorm: 5964586 Inject 42 Unit(s) Subcutaneous TID in addition to sliding scale 12/10/19 22 022 Inactive d/c 36u chlorthalidone 25 mg tablet RxNorm: 628867 Take 1 Tablet(s) Oral QAM every morning 12/10/19 22 023 Inactive pregabalin 50 mg capsule RxNorm: 084437 Take 1 Capsule(s) Oral QAM every morning 11/12/19 22 022 Inactive tetanus-diphtheria toxoids-Td 2 Lf unit-2 Lf unit/0.5 mL IM suspension RxNorm: 139 Take 0.5 Miscellaneous Intramuscular 11/12/19 22 022 Inactive need tdap - nursing to administer upon arrival pregabalin 50 mg capsule RxNorm: 347272 Take 1 Capsule(s) Oral QAM every morning 10/16/19 22 022 Inactive pregabalin 50 mg capsule RxNorm: 135241 Take 1 Capsule(s) Oral QAM every morning 10/16/19 22 022 Inactive pregabalin 50 mg capsule RxNorm: 364406 1 Capsule(s) Oral QAM every morning 10/15/19 22 022 Inactive Shingrix (PF) 50 mcg/0.5 mL intramuscular suspension, kit RxNorm: 6450691 Administer 1/2 Milliliter(s) Intramuscular one time Nursing please administer upon arrival and once administered post a 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 10/09/19 22 022 Inactive shingrix step 1 cholecalciferol (vitamin D3) 1,250 mcg (50,000 unit) capsule RxNorm: 564647 Take 1 Capsule(s) Oral QW once a [...] aspart 100 unit/mL (3 mL) subcutaneous RxNorm: 6201785 Inject 10 Unit(s) Subcutaneous QHS every night at bedtime with nighttime snack 10/08/19 22 022 Inactive Shingrix (PF) 50 mcg/0.5 mL intramuscular suspension, kit RxNorm: 9263781 ADMINISTER 2-DOSE SERIES PER CDC GUIDELINES 10/08/19 22 Active Shingrix (PF) 50 mcg/0.5 mL intramuscular suspension, kit RxNorm: 2823866 ADMINISTER 2-DOSE SERIES PER CDC GUIDELINES 10/08/19 22 Inactive Novolog Flexpen U-100 Insulin aspart 100 unit/mL (3 mL) subcutaneous RxNorm: 9063386 Inject 36 Unit(s) Subcutaneous TID in addition to sliding scale 10/08/19 Inactive Novofine Autocover 30 gauge x 1/3 needle RxNorm: Use 1 Miscellaneous UD as directed Use 1 needle as directed to administer insulin 5 times a day Dx:E11.42. 10/03/19 Inactive ok to substitute with any covered alternative pen needle benzoyl peroxide 10 % topical cleanser RxNorm: 520748 Apply 1 Application Topical QD apply to face, wash rinse and dry once daily (may change to QOD if drying) 08/19/19 Inactive (%covered by insurance) #60ml refill 11 dx: acne benzoyl peroxide 10 % topical cleanser RxNorm: 011418 Apply 1 Application Topical QD apply to face, wash rinse and dry once daily (may change to QOD if drying) 08/19/19 Inactive (%covered by insurance) #60ml refill 11 dx: acne benzoyl peroxide 10 % topical cleanser RxNorm: 634289 Apply 1 Application Topical QD apply to face, wash rinse and dry once daily (may change to QOD if drying) 08/19/19 22 022 Inactive (%covered by insurance) #60ml refill 11 dx: acne Lyrica 50 mg capsule RxNorm: 746397 Take 1 Capsule(s) Oral QAM every morning Take 1 capsule by mouth once daily 08/19/19 22 022 Inactive benzoyl peroxide 10 % topical cleanser RxNorm: 186153 Apply 1 Application Topical QD apply to face, wash rinse and dry once daily (may change to QOD if drying) 08/19/19 22 022 Inactive (%covered by insurance) #60ml refill 11 dx: acne Lyrica 100 mg capsule RxNorm: 438142 Take 1 Capsule(s) Oral QHS every night at bedtime Take 1 capsule by mouth once daily at bedtime 08/19/19 22 022 Inactive Lyrica 100 mg capsule RxNorm: 270356 Take 1 Capsule(s) Oral QHS every night at bedtime Take 1 capsule by mouth once daily at bedtime 08/16/19 22 022 Inactive Lyrica 50 mg capsule RxNorm: 289345 Take 1 Capsule(s) Oral QAM every morning Take 1 capsule by mouth once daily 08/16/19 22 022 Inactive Levemir FlexTouch U-100 Insulin 100 unit/mL (3 mL) subcutaneous pen RxNorm: 832577 Inject 86 Unit(s) Subcutaneous BID 08/05/19 22 022 Inactive d/c 83units BID Lyrica 100 mg capsule RxNorm: 185106 Take 1 Capsule(s) Oral QHS every night at bedtime Take 1 capsule by mouth once daily at bedtime 07/14/19 22 022 Inactive Lyrica 50 mg capsule RxNorm: 414094 Take 1 Capsule(s) Oral QAM every morning Take 1 capsule by mouth once daily 07/14/19 22 022 Inactive Levemir FlexTouch U-100 Insulin 100 unit/mL (3 mL) subcutaneous pen RxNorm: 708561 Inject 83 Unit(s) Subcutaneous BID 07/08/19 22 [...] 30 mg tablet,extended release 24 hr RxNorm: 716109 Take 1 Tablet(s) Oral QD 05/05/20 21 No Stop Date Active hydralazine 50 mg tablet RxNorm: 186762 Take 1 Tablet(s) Oral QID 05/05/20 21 022 Inactive venlafaxine ER 225 mg tablet,extended release 24 hr RxNorm: 092443 Take 1 Tablet(s) Oral QD 05/05/20 21 021 Inactive venlafaxine ER 225 mg tablet,extended release 24 hr RxNorm: 095965 Take 1 Tablet(s) Oral QD 05/05/20 21 022 Inactive hydralazine 50 mg tablet RxNorm: 092988 Take 1 Tablet(s) Oral QID 05/05/20 21 021 Inactive aspirin 81 mg tablet,delayed release RxNorm: 141390 Take 1 Tablet(s) Oral QD 03/31/20 21 022 Inactive Zetia 10 mg tablet RxNorm: 911113 Take 1 Tablet(s) Oral QD 03/31/20 21 022 Inactive Vitamin D2 1,250 mcg (50,000 unit) capsule RxNorm: 0385914 Take 1 Capsule(s) Oral QW once a week x 12 weeks 03/31/20 022 Inactive Vitamin D2 1,250 mcg (50,000 unit) capsule RxNorm: 0436624 Take 1 Capsule(s) Oral QW once a week 03/31/20 021 Inactive Zetia 10 mg tablet RxNorm: 714519 Take 1 Tablet(s) Oral QD 03/31/20 021 Inactive hydralazine 25 mg tablet RxNorm: 175146 Take 1 Tablet(s) Oral QID 03/31/20 021 Inactive hydralazine 25 mg tablet RxNorm: 301076 Take 1 Tablet(s) Oral QID 03/31/20 021 Inactive hydralazine 10 mg tablet RxNorm: 343819 Take 1 Tablet(s) Oral QID 03/03/20 021 Inactive cephalexin 500 mg tablet RxNorm: 876619 Take 1 Tablet(s) Oral QID 02/27/20 021 Inactive cephalexin 500 mg tablet RxNorm: 795133 Take 1 Tablet(s) Oral QID 02/27/20 021 Inactive lisinopril 40 mg tablet RxNorm: 553721 Take 1 Tablet(s) Oral QD 02/11/20 21 023 Inactive Eliquis 5 mg tablet RxNorm: 0466562 Take 1 Tablet(s) Oral BID 01/05/20 21 022 Inactive Eliquis 5 mg tablet RxNorm: 9050164 Take 2 Tablet(s) Oral QD 01/01/20 21 021 Inactive Lyrica 50 mg capsule RxNorm: 667109 Take 1 Capsule(s) Oral QAM every morning 12/24/19 21 021 Inactive Lyrica 100 mg capsule RxNorm: 754075 Take 1 Capsule(s) Oral QHS every night at bedtime 12/24/19 21 021 Inactive clotrimazole 1 % topical cream RxNorm: 368566 Apply to right foot and toes Topical BID 12/04/19 21 023 Inactive metoprolol succinate ER 200 mg tablet,extended release 24 hr RxNorm: 625003 Take 1 Tablet(s) Oral QD 12/04/19 21 023 Inactive ciprofloxacin 500 mg tablet RxNorm: 961619 Take 1 Tablet(s) Oral QD 11/30/19 21 021 Inactive DX ofloxacin otic drops Accu-Chek Guide test strips RxNorm: USE 1 TO CHECK GLUCOSE 4 TIMES DAILY AND NEEDED 11/15/19 21 023 Inactive Blood Glucose Test strips RxNorm: Use 1 Test Strip QID at PRN 11/05/19 21 023 Inactive E11.42 lisinopril 30 mg tablet RxNorm: 602062 Take 1 Tablet(s) Oral QD 10/30/19 021 Inactive lisinopril 20 mg tablet RxNorm: 567948 Take 1 Tablet(s) Oral QD 10/23/19 021 Inactive lisinopril 20 mg tablet RxNorm: 295399 Take 1 Tablet(s) Oral QD 10/23/19 21 021 Inactive lisinopril 10 mg tablet RxNorm: 038122 Take 1 Tablet(s) Oral QD 10/02/19 21 021 Inactive icosapent ethyl 1 gram capsule RxNorm: 1070232 Take 2 Capsule(s) (2 gm) Oral BID with meals 09/12/19 21 022 Inactive Okay to dispense one 2gm tab if you have that available. icosapent ethyl 1 gram capsule RxNorm: 2583839 Take 2 Capsule(s) Oral BID 09/12/19 021 Inactive Okay to dispense one 2gm tab if you have that available. amlodipine 10 mg tablet RxNorm: 637834 Take 1 Tablet(s) Oral QD 09/04/19 022 Inactive aspirin 81 mg tablet,delayed release RxNorm: 174410 Take 1 Tablet(s) Oral QD 09/04/19 21 021 Inactive Levemir FlexTouch U-100 Insulin 100 unit/mL (3 mL) subcutaneous pen RxNorm: 668621 Inject 150 Unit(s) Subcutaneous BID 09/04/19 022 Inactive venlafaxine ER 150 mg tablet,extended release 24 hr RxNorm: 734707 Take 1 Tablet(s) Oral QD 09/04/19 Inactive clotrimazole-betame thasone 1 %-0.05 % topical cream RxNorm: 398766 Apply to rash on red area on left abdomen/chest Topical BID 08/10/19 Inactive amlodipine 5 mg tablet RxNorm: 328257 Take 1 Tablet(s) Oral QD 07/31/19 Inactive cephalexin 500 mg tablet RxNorm: 823216 Take 1 Tablet(s) Oral BID BID - Twice Daily 07/31/19 Inactive Start 08/01/20 pantoprazole 40 mg tablet,delayed release RxNorm: 855434 Take 1 Tablet(s) Oral QAM every morning 07/08/19 022 Inactive senna 8.6 mg tablet RxNorm: 196761 Take 1 Tablet(s) Oral QD 07/08/19 022 Inactive carbamazepine 200 mg tablet RxNorm: 724009 Take 1 Tablet(s) Oral BID 07/08/19 022 Inactive clopidogrel 75 mg tablet RxNorm: 868783 Take 1 Tablet(s) Oral QD 07/08/19 021 Inactive Blood Glucose Test strips RxNorm: Use 1 Test Strip QID at PRN 07/08/19 Inactive E11.42 Novolog Flexpen U-100 Insulin aspart 100 unit/mL (3 mL) subcutaneous RxNorm: 1007889 Administer per sliding scale Milliliter(s) Subcutaneous TID 151-200: 10 u; 201-250: 20 u; 251-300: 30 u; 301-350: 40 u; 351-400: 50 u. 07/08/19 022 Inactive lisinopril 5 mg tablet RxNorm: 504576 Take 1 Tablet(s) Oral QD 07/08/19 021 Inactive Novolog Flexpen U-100 Insulin aspart 100 unit/mL (3 mL) subcutaneous RxNorm: 8773088 Inject 85 Unit(s) Subcutaneous TID 07/08/19 022 Inactive pravastatin 80 mg tablet RxNorm: 013762 Take 1 Tablet(s) Oral QHS every night at bedtime 07/08/19 023 Inactive clotrimazole 1 % topical cream RxNorm: 816218 Apply to bilateral groin areas Topical BID 07/08/19 022 Inactive metoprolol succinate ER 200 mg tablet,extended release 24 hr RxNorm: 612619 Take 1 Tablet(s) Oral QD 07/08/19 021 Inactive Vitamin D3 25 mcg (1,000 unit) tablet RxNorm: 654016 Take 1 Tablet(s) Oral QD 07/08/19 021 Inactive isosorbide dinitrate 30 mg tablet RxNorm: 036401 Take 1 Tablet(s) Oral QD 07/08/19 021 Inactive Levemir FlexTouch U-100 Insulin 100 unit/mL (3 mL) subcutaneous pen RxNorm: 989875 Inject 140 Unit(s) Subcutaneous BID 07/08/19 021 Inactive torsemide 20 mg tablet RxNorm: 503769 Take 1 Tablet(s) Oral QD 07/08/19 023 Inactive venlafaxine 75 mg tablet RxNorm: 589148 Take 1 Tablet(s) Oral QD 07/08/19 021 Inactive acetaminophen 500 mg tablet RxNorm: 436861 Take 1 Tablet(s) Oral TID as needed for headache 06/18/19 021 Inactive acetaminophen 500 mg tablet RxNorm: 679466 Take 1 Tablet(s) Oral TID as needed for headache 06/18/19 021 Inactive Lyrica 100 mg capsule RxNorm: 502587 Take 1 Capsule(s) Oral QHS every night at bedtime 06/11/19 021 Inactive Lyrica 50 mg capsule RxNorm: 251610 Take 1 Capsule(s) Oral QAM every morning 06/10/19 021 Inactive hydrocortisone 2.5 % topical cream RxNorm: 965895 Apply to bilateral groin creases Topical BID 05/15/20 20 Inactive clotrimazole 1 % topical cream RxNorm: 531684 Apply to bilateral groin areas Topical BID 05/15/20 20 Inactive Lyrica 50 mg capsule RxNorm: 393436 Take 1 Capsule(s) Oral QAM every morning 05/14/20 20 Inactive Lyrica 100 mg capsule RxNorm: 167284 Take 1 Capsule(s) Oral QHS every night [...] Inactive Nystop 100,000 unit/gram topical powder RxNorm: 933025 Apply to abd folds, under breasts and L side of groin Topical BID x 14 days, then BID PRN 04/08/20 20 020 Inactive dx: yeast dermatitis Lyrica 100 mg capsule RxNorm: 872338 Take 1 Capsule(s) Oral QHS every night at bedtime 03/13/20 20 Inactive Lyrica 50 mg capsule RxNorm: 343980 Take 1 Capsule(s) Oral QAM every morning 03/13/20 20 Inactive ketoconazole 2 % shampoo RxNorm: 638227 Apply Topical two times a week with showers 03/11/20 20 Inactive cholecalciferol (vitamin D3) 50 mcg (2,000 unit) tablet RxNorm: 148505 Take 1 Tablet(s) Oral QD 03/11/20 20 021 Inactive Zetia 10 mg tablet RxNorm: 355843 Take 1 Tablet(s) Oral QD 03/07/20 20 021 Inactive Zetia 10 mg tablet RxNorm: 962603 Take 1 Tablet(s) Oral QD 03/07/20 20 Inactive Lyrica 50 mg capsule RxNorm: 924599 Take 1 Capsule(s) Oral QAM every morning 02/15/20 20 Inactive Lyrica 100 mg capsule RxNorm: 100025 Take 1 Capsule(s) Oral QHS every night at bedtime 02/15/20 Inactive Lyrica 100 mg capsule RxNorm: 206897 Take 1 Capsule(s) Oral QHS every night at bedtime 02/15/20 Inactive Lyrica 50 mg capsule RxNorm: 065626 Take 1 Capsule(s) Oral QAM every morning 02/15/20 Inactive polyethylene glycol 3350 17 gram/dose oral powder RxNorm: 261663 Take 17=1 capful Gram(s) Oral BID as needed mix with 4-8oz of liquid 06/12/19 22 Active metoprolol succinate ER 200 mg tablet,extended release 24 hr RxNorm: 306279 Take 1 Tablet(s) Oral QD 08/12/19 23 Active loperamide 2 mg capsule RxNorm: 444610 Take 1 Capsule(s) Oral QID as needed 06/12/19 22 Active hydralazine 50 mg tablet RxNorm: 035060 Take 1 Tablet(s) Oral QID 08/12/19 23 Active venlafaxine ER 75 mg capsule,extended release 24 hr RxNorm: 205076 Take 3 Capsule(s) Oral QD 06/12/19 22 023 Inactive icosapent ethyl 1 gram capsule RxNorm: 2668888 Take 2 Capsule(s) (2 gm) Oral BID with meals 10/07/19 23 023 Inactive Okay to dispense one 2gm tab if you have that available. Levemir FlexTouch U-100 Insulin 100 unit/mL (3 mL) subcutaneous pen RxNorm: 565167 Inject 80 Unit(s) Subcutaneous BID 07/14/19 23 023 Inactive Novolog Flexpen U-100 Insulin aspart 100 unit/mL (3 mL) subcutaneous RxNorm: 5802729 Insert 30 Unit(s) Subcutaneous TID with meals 10/08/19 22 022 Inactive Medication Administered No Medication Administered data Reason For Visit No Reason For Visit data Plan of Care Planned Activity Notes Codes Status Date Referral: [facility] WPtel: [phone] [id number] [place] Referral Records Received 09/21/2022 Referral: [facility] WPtel: [phone] [id number] [place] Referral Completed 05/28/2021 Referral: General Cardiology [...] Sister Jyotsna involved in his care cell# [phone] Guardian: Don (tapan met in person 09/01/21), now has Lexii (same group as don)Lab Schedule: * 02/08/2023
--- OUTSIDE RECORDS SUMMARY | 2023-04-01 09:37 | XMS_ITS | CCD ---
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 Medical Assistant Name Role Phone Chelo Fonseca PA-C Primary Care Provider Unavaila ble Chelo Fonseca PA-C Chronic Care Management Nicole archer Summary Purpose DataExchange Insurance Providers Payer name Policy type / Coverage type Covered alliance party ID Effective Begin Date Effective End Date [place] Part [place] [id number] Unknown Unknown [place] [id number] Unknown Unknown Family history Sister Brittany Suggs [...] Jail 09/03/[address]: 6867294 Non-Smoker / No History of Smoking 09/02/[address]: 364844448 No Alcohol Consum ption 09/02/2020 Allergies, Adverse Reactions, Alerts Substance Reaction Codes Entered Date Inactivated Date Status LISINOPRIL RxNorm: 10059 02/12/2020 No Inactive Da te Active Metformin [...] F33. 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 ICD-10: Z79.4 02/10 [...] strip clotrimazole 1 % topical cream RxNorm: 581706 Take apply topically to abdominal folds twice daily for 14 days 03/12/20 023 Active Ozempic 1 mg/dose (4 mg/3 mL) subcutaneous pen injector RxNorm: 0605394 Inject 1 Milligram(s) Subcutaneous QW once a week 03/11/20 23 023 Inactive rosuvastatin 20 mg tablet RxNorm: 936695 Take 1 Tablet(s) Oral QD 02/26/20 23 024 Active d/c pravastatin 80mg Ozempic 1 mg/dose (4 mg/3 mL) subcutaneous pen injector RxNorm: 2343339 Inject 1 Milligram(s) Subcutaneous QW once a week 02/20/20 23 023 Inactive pregabalin 150 mg capsule RxNorm: 496869 Take 1 Capsule(s) Oral HS at bed time 02/19/20 23 023 Inactive pregabalin 100 mg capsule RxNorm: 750761 Take 1 Capsule(s) Oral QAM every morning 02/18/20 23 024 Active FreeStyle Chema 2 Sensor kit RxNorm: use as directed 02/04/20 23 024 Active venlafaxine ER 75 mg capsule,extended release 24 hr RxNorm: 576864 Take 3 Capsule(s) Oral QD 02/04/20 23 023 Inactive FreeStyle Chema 2 Sensor kit RxNorm: use as directed 02/04/20 23 023 Inactive fluconazole 150 mg tablet RxNorm: 032638 Take 1 Tablet(s) Oral on day 3 and on day 6 02/03/20 23 024 Active chlorthalidone 25 mg tablet RxNorm: 430544 Take 1 Tablet(s) Oral QAM every morning 02/03/20 23 No Stop Date Active venlafaxine ER 150 mg capsule,extended release 24 hr RxNorm: 491867 Take 1 Capsule(s) Oral QD 02/03/20 023 Inactive acetaminophen 500 mg tablet RxNorm: 301829 1 TABLET ORALLY 3 TIMES DAILY (MAX APAP:4GM/24HR) 12/15/19 024 Active potassium chloride ER 20 mEq tablet,extended release RxNorm: 146427 Take 1 Tablet(s) Oral BID 12/09/19 023 Inactive d/c 20mEq once daily (sent from hospital) clotrimazole 1 % topical cream RxNorm: 848008 apply 1g topically to top of feet and in between toes BID 12/09/19 023 Inactive nystatin 100,000 unit/gram topical powder RxNorm: 942751 APPLY TO AFFECTED AREAS TOPICALLY 2 TIMES DAILY 11/21/19 024 Active Nystop 100,000 unit/gram topical powder RxNorm: 557132 Apply to abd folds, under breasts and L side of groin Topical BID x 14 days, then BID PRN 11/20/19 023 Inactive dx: yeast dermatitis [place] Ultra Strength 4 %-30 %-10 % topical cream RxNorm: 732513 Apply 1 Gram(s) Topical QID PRN to feet and legs for neuropathic pain 11/11/19 024 Active hydrocortisone 2.5 % topical cream RxNorm: 486750 Apply 1/2 Gram(s) Topical BID as needed 11/10/19 No Stop Date Active clotrimazole 1 % topical cream RxNorm: 056730 Apply 1/2 Gram(s) Topical BID Apply to affected areas of groin, periarea, and abdominal topically 2 times daily 11/10/19 023 Inactive Levemir FlexPen 100 unit/mL (3 mL) solution subcutaneous insulin pen RxNorm: 437558 Inject 30 Unit(s) Subcutaneous BID 10/07/19 024 Active Humulin R U-500 (Concentrated) Insulin 500 unit/mL subcutaneous soln RxNorm: 704976 Inject 100 Unit(s) Subcutaneous TID 10/07/19 024 Active Ozempic 0.25 mg or 0.5 mg (2 mg/3 mL) subcutaneous pen injector RxNorm: 1683195 Inject 1/2 Milligram(s) Subcutaneous QW once a week 10/07/19 024 Active aripiprazole 15 mg tablet RxNorm: 613777 1/2 TAB (7.5MG) ORALLY DAILY (DX:MAJOR DEPRESSIVE DISORDER) 09/23/19 023 Inactive Lancets,Thin 28 gauge RxNorm: Use 1 as directed QID 09/15/19 23 024 Active Accu-Chek Guide test strips RxNorm: Use 1 Test Strip QID 09/15/19 023 Inactive ok to substitute with any covered alternative test strip torsemide 20 mg tablet RxNorm: 542788 Take 1 Tablet(s) Oral BID 09/09/19 024 Active d/c once daily dosing carvedilol 25 mg tablet RxNorm: 627315 Take 1 Tablet(s) Oral QD 08/25/19 024 Active pregabalin 150 mg capsule RxNorm: 399329 1 Capsule(s) Oral HS at bed time 08/18/19 023 Inactive pregabalin 100 mg capsule RxNorm: 463256 1 Capsule(s) Oral QAM every morning 08/18/19 23 023 Inactive carvedilol 25 mg tablet RxNorm: 395076 1 Tablet(s) Oral QD 07/28/19 23 023 Inactive lisinopril 20 mg tablet RxNorm: 151783 Give 1 Tablet(s) Oral QD 07/28/19 23 023 Inactive Lyrica 150 mg capsule RxNorm: 815274 Take 1 Capsule(s) Oral QHS every night at bedtime 07/19/19 23 023 Inactive d/c 100mg dose Diflucan 150 mg tablet RxNorm: 798203 Take 1 Tablet(s) Oral QD repeat on day 3 and 6 07/19/19 23 023 Inactive pregabalin 100 mg capsule RxNorm: 948426 Take 1 Capsule(s) Oral QAM every morning 07/19/19 23 023 Inactive gatifloxacin 0.5 % eye drops RxNorm: 456916 Instill 1 Drop(s) as directed TID Instill 1 drop in to affected eye(s) starting 1 day prior to surgery and continue until gone (do not exceed 4 weeks). 07/13/19 023 Inactive carvedilol 25 mg tablet RxNorm: 725603 2 Tablet(s) Oral BID 07/13/19 023 Inactive Humulin R Regular U-100 Insulin 100 unit/mL injection solution RxNorm: 685635 85 Unit(s) Injection TID 07/13/19 023 Inactive ketorolac 0.5 % eye drops RxNorm: 050698 Instill 1 Drop(s) as directed QID Instill 1 drop into affected eye(s) 4 times daily starting 1 day prior to surgery and continue until gone (do not exceed 4 weeks). 07/13/19 023 Inactive Diflucan 150 mg tablet RxNorm: 955841 Take 1 Tablet(s) Oral QD repeat on day 3 and 6 06/30/19 23 023 Inactive Accu-Chek Guide test strips RxNorm: Use 1 Test Strip QID Use 1 test strip to monitor blood glucose 4 times daily and as needed. Dx:E11.42. 06/23/19 23 023 Inactive ok to substitute with any covered alternative test strip dextromethorphan-gu aifenesin 10 mg-100 mg/5 mL oral liquid RxNorm: 731991 Take 10 Milliliter(s) Oral every 4 hours as needed for cough 06/19/19 23 023 Inactive dextromethorphan-gu aifenesin 10 mg-100 mg/5 mL oral liquid RxNorm: 977264 Take 10 Milliliter(s) Oral every 4 hours as needed for cough 06/19/19 23 023 Inactive Lyrica 150 mg capsule RxNorm: 104380 Take 1 Capsule(s) Oral QHS every night at bedtime 06/18/19 23 023 Inactive d/c 100mg dose aripiprazole 15 mg tablet RxNorm: 107102 1/2 TAB (7.5MG) ORALLY DAILY (DX:MAJOR DEPRESSIVE DISORDER) 06/05/19 23 023 Inactive pregabalin 100 mg capsule RxNorm: 086529 1 Capsule(s) Oral QAM every morning 06/02/19 023 Inactive Banophen 50 mg capsule RxNorm: 7033654 Take 1 Capsule(s) Oral Q6H every 6 hours as needed 05/19/19 No Stop Date Active Novolog Flexpen U-100 Insulin aspart 100 unit/mL (3 mL) subcutaneous RxNorm: 5007949 Inject 10 Unit(s) Subcutaneous QHS every night at bedtime with nighttime snack 04/08/20 Inactive Novolog Flexpen U-100 Insulin aspart 100 unit/mL (3 mL) subcutaneous RxNorm: 1973901 Inject 42 Unit(s) Subcutaneous TID in addition to sliding scale 04/08/20 Inactive d/c 36u albuterol sulfate HFA 90 mcg/actuation aerosol inhaler RxNorm: 3019224 Take 2 Puff(s) Inhalation Q4H every four hours as needed as needed for SOB, cough, or wheezing 04/07/20 030 Active Banophen 50 mg capsule RxNorm: 7763490 Take 1 Capsule(s) Oral Q6H every 6 hours as needed 04/06/20 023 Inactive diphenhydramine 50 mg tablet RxNorm: 7615586 Take 1 Tablet(s) Oral Q6H every 6 hours as needed 04/06/20 022 Inactive diphenhydramine 50 mg tablet RxNorm: 6455362 1 Tablet(s) Oral Q6H every 6 hours as needed 04/06/20 022 Inactive Abilify 15 mg tablet RxNorm: 482804 1/2 Tablet(s) Oral QD 03/10/20 023 Inactive Shingrix (PF) 50 mcg/0.5 mL intramuscular suspension, kit RxNorm: 2023730 Administer 1/2 Milliliter(s) Intramuscular QD one time shingrix step 2 ( step 1 given 11/04/21) WITH needle - Nursing please administer upon arrival and once administered post a bridge message 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, 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, 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, and lot# so we can update [facility] 02/18/20 022 Inactive dispense with needle Shingrix (PF) 50 mcg/0.5 mL intramuscular suspension, kit RxNorm: 4251896 Administer 1/2 Milliliter(s) Intramuscular QD one time shingrix step 2 ( step 1 given 11/04/21) WITH needle - Nursing please administer upon arrival and once administered post a bridge message with 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 of 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, 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, 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, and lot# so we can update [facility] 02/18/20 22 Inactive dispense with needle polyethylene glycol 3350 17 gram/dose oral powder RxNorm: 778598 Take 17=1 capful Gram(s) Oral QD mix with 4-8oz of liquid 01/08/20 22 023 Inactive take this in addition to BID prn order Lyrica 100 mg capsule RxNorm: 467230 Take 1 Capsule(s) Oral QAM every morning 01/08/20 22 022 Inactive d/c 50mg dose acetaminophen 500 mg tablet RxNorm: 217144 Take 1 Tablet(s) Oral TID 01/08/20 22 022 Inactive d/c PRN order Lyrica 150 mg capsule RxNorm: 768088 Take 1 Capsule(s) Oral QHS every night at bedtime 01/08/20 22 023 Inactive d/c 100mg dose Abilify 5 mg tablet RxNorm: 761981 Take 1 Tablet(s) Oral QD take 1 tab po QD #30 refill 5 dx: MDD 12/12/19 22 022 Inactive Abilify 5 mg tablet RxNorm: 118169 Take 1 Tablet(s) Oral QD take 1 tab po QD #30 refill 5 dx: MDD 12/12/19 22 022 Inactive Novolog Flexpen U-100 Insulin aspart 100 unit/mL (3 mL) subcutaneous RxNorm: 7177892 Inject 42 Unit(s) Subcutaneous TID in addition to sliding scale 12/10/19 22 022 Inactive d/c 36u chlorthalidone 25 mg tablet RxNorm: 101681 Take 1 Tablet(s) Oral QAM every morning 12/10/19 22 023 Inactive pregabalin 50 mg capsule RxNorm: 216560 Take 1 Capsule(s) Oral QAM every morning 11/12/19 22 022 Inactive tetanus-diphtheria toxoids-Td 2 Lf unit-2 Lf unit/0.5 mL IM suspension RxNorm: 139 Take 0.5 Miscellaneous Intramuscular 11/12/19 22 022 Inactive need tdap - nursing to administer upon arrival pregabalin 50 mg capsule RxNorm: 068621 Take 1 Capsule(s) Oral QAM every morning 10/16/19 22 022 Inactive pregabalin 50 mg capsule RxNorm: 631828 Take 1 Capsule(s) Oral QAM every morning 10/16/19 22 022 Inactive pregabalin 50 mg capsule RxNorm: 380951 1 Capsule(s) Oral QAM every morning 10/15/19 022 Inactive Shingrix (PF) 50 mcg/0.5 mL intramuscular suspension, kit RxNorm: 7377803 Administer 1/2 Milliliter(s) Intramuscular one time Nursing please administer upon arrival and once administered post a bridge message with 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 10/09/19 22 022 Inactive shingrix step 1 cholecalciferol (vitamin D3) 1,250 mcg (50,000 unit) capsule RxNorm: 840699 Take 1 Capsule(s) Oral QW once a [...] aspart 100 unit/mL (3 mL) subcutaneous RxNorm: 2465758 Inject 10 Unit(s) Subcutaneous QHS every night at bedtime with nighttime snack 10/08/19 22 Inactive Shingrix (PF) 50 mcg/0.5 mL intramuscular suspension, kit RxNorm: 0419089 ADMINISTER 2-DOSE SERIES PER CDC GUIDELINES 10/08/19 22 Active Shingrix (PF) 50 mcg/0.5 mL intramuscular suspension, kit RxNorm: 1960075 ADMINISTER 2-DOSE SERIES PER CDC GUIDELINES 10/08/19 22 Inactive Novolog Flexpen U-100 Insulin aspart 100 unit/mL (3 mL) subcutaneous RxNorm: 1914704 Inject 36 Unit(s) Subcutaneous TID in addition to sliding scale 10/08/19 22 Inactive Novofine Autocover 30 gauge x 1/3 needle RxNorm: Use 1 Miscellaneous UD as directed Use 1 needle as directed to administer insulin 5 times a day Dx:E11.42. 10/03/19 Inactive ok to substitute with any covered alternative pen needle benzoyl peroxide 10 % topical cleanser RxNorm: 052529 Apply 1 Application Topical QD apply to face, wash rinse and dry once daily (may change to QOD if drying) 08/19/19 22 022 Inactive (%covered by insurance) #60ml refill 11 dx: acne benzoyl peroxide 10 % topical cleanser RxNorm: 351540 Apply 1 Application Topical QD apply to face, wash rinse and dry once daily (may change to QOD if drying) 08/19/19 22 022 Inactive (%covered by insurance) #60ml refill 11 dx: acne benzoyl peroxide 10 % topical cleanser RxNorm: 708095 Apply 1 Application Topical QD apply to face, wash rinse and dry once daily (may change to QOD if drying) 08/19/19 22 022 Inactive (%covered by insurance) #60ml refill 11 dx: acne Lyrica 50 mg capsule RxNorm: 559869 Take 1 Capsule(s) Oral QAM every morning Take 1 capsule by mouth once daily 08/19/19 22 022 Inactive benzoyl peroxide 10 % topical cleanser RxNorm: 433081 Apply 1 Application Topical QD apply to face, wash rinse and dry once daily (may change to QOD if drying) 08/19/19 22 022 Inactive (%covered by insurance) #60ml refill 11 dx: acne Lyrica 100 mg capsule RxNorm: 715989 Take 1 Capsule(s) Oral QHS every night at bedtime Take 1 capsule by mouth once daily at bedtime 08/19/19 22 022 Inactive Lyrica 100 mg capsule RxNorm: 564115 Take 1 Capsule(s) Oral QHS every night at bedtime Take 1 capsule by mouth once daily at bedtime 08/16/19 22 022 Inactive Lyrica 50 mg capsule RxNorm: 063222 Take 1 Capsule(s) Oral QAM every morning Take 1 capsule by mouth once daily 08/16/19 22 022 Inactive Levemir FlexTouch U-100 Insulin 100 unit/mL (3 mL) subcutaneous pen RxNorm: 292844 Inject 86 Unit(s) Subcutaneous BID 08/05/19 22 022 Inactive d/c 83units BID Lyrica 100 mg capsule RxNorm: 229230 Take 1 Capsule(s) Oral QHS every night at bedtime Take 1 capsule by mouth once daily at bedtime 07/14/19 22 022 Inactive Lyrica 50 mg capsule RxNorm: 871766 Take 1 Capsule(s) Oral QAM every morning Take 1 capsule by mouth once daily 07/14/19 22 022 Inactive Levemir FlexTouch U-100 Insulin 100 unit/mL (3 mL) subcutaneous pen RxNorm: 793174 Inject 83 Unit(s) Subcutaneous BID 07/08/19 22 022 Inactive d/c 80units BID Accu-Chek Guide Glucose Meter RxNorm: Use 1 Miscellaneous UD as directed Use glucose meter to monitor blood glucose 4 times daily and as needed. Dx:E11.42 20 22 01/20/2 022 Inactive ok to substitute [...] 30 mg tablet,extended release 24 hr RxNorm: 278289 Take 1 Tablet(s) Oral QD 05/05/20 No Stop Date Active hydralazine 50 mg tablet RxNorm: 579024 Take 1 Tablet(s) Oral QID 05/05/20 21 022 Inactive venlafaxine ER 225 mg tablet,extended release 24 hr RxNorm: 656443 Take 1 Tablet(s) Oral QD 05/05/20 21 021 Inactive venlafaxine ER 225 mg tablet,extended release 24 hr RxNorm: 064468 Take 1 Tablet(s) Oral QD 05/05/20 21 022 Inactive hydralazine 50 mg tablet RxNorm: 236457 Take 1 Tablet(s) Oral QID 05/05/20 Inactive aspirin 81 mg tablet,delayed release RxNorm: 363057 Take 1 Tablet(s) Oral QD 03/31/20 Inactive Zetia 10 mg tablet RxNorm: 113259 Take 1 Tablet(s) Oral QD 03/31/20 Inactive Vitamin D2 1,250 mcg (50,000 unit) capsule RxNorm: 9263448 Take 1 Capsule(s) Oral QW once a week x 12 weeks 03/31/20 Inactive Vitamin D2 1,250 mcg (50,000 unit) capsule RxNorm: 3299305 Take 1 Capsule(s) Oral QW once a week 03/31/20 Inactive Zetia 10 mg tablet RxNorm: 679735 Take 1 Tablet(s) Oral QD 03/31/20 Inactive hydralazine 25 mg tablet RxNorm: 919016 Take 1 Tablet(s) Oral QID 03/31/20 021 Inactive hydralazine 25 mg tablet RxNorm: 121943 Take 1 Tablet(s) Oral QID 03/31/20 021 Inactive hydralazine 10 mg tablet RxNorm: 114550 Take 1 Tablet(s) Oral QID 03/03/20 021 Inactive cephalexin 500 mg tablet RxNorm: 567584 Take 1 Tablet(s) Oral QID 02/27/20 021 Inactive cephalexin 500 mg tablet RxNorm: 528989 Take 1 Tablet(s) Oral QID 02/27/20 021 Inactive lisinopril 40 mg tablet RxNorm: 081539 Take 1 Tablet(s) Oral QD 02/11/20 023 Inactive Eliquis 5 mg tablet RxNorm: 0356896 Take 1 Tablet(s) Oral BID 01/05/20 022 Inactive Eliquis 5 mg tablet RxNorm: 4143958 Take 2 Tablet(s) Oral QD 01/01/20 21 021 Inactive Lyrica 50 mg capsule RxNorm: 095441 Take 1 Capsule(s) Oral QAM every morning 12/24/19 21 021 Inactive Lyrica 100 mg capsule RxNorm: 947989 Take 1 Capsule(s) Oral QHS every night at bedtime 12/24/19 21 021 Inactive clotrimazole 1 % topical cream RxNorm: 145320 Apply to right foot and toes Topical BID 12/04/19 21 023 Inactive metoprolol succinate ER 200 mg tablet,extended release 24 hr RxNorm: 286416 Take 1 Tablet(s) Oral QD 12/04/19 21 023 Inactive ciprofloxacin 500 mg tablet RxNorm: 163931 Take 1 Tablet(s) Oral QD 11/30/19 21 021 Inactive DX ofloxacin otic drops Accu-Chek Guide test strips RxNorm: USE 1 TO CHECK GLUCOSE 4 TIMES DAILY AND NEEDED 11/15/19 21 023 Inactive Blood Glucose Test strips RxNorm: Use 1 Test Strip QID at PRN 11/05/19 21 023 Inactive E11.42 lisinopril 30 mg tablet RxNorm: 498320 Take 1 Tablet(s) Oral QD 10/30/19 021 Inactive lisinopril 20 mg tablet RxNorm: 593345 Take 1 Tablet(s) Oral QD 10/23/19 21 021 Inactive lisinopril 20 mg tablet RxNorm: 200737 Take 1 Tablet(s) Oral QD 10/23/19 021 Inactive lisinopril 10 mg tablet RxNorm: 927681 Take 1 Tablet(s) Oral QD 10/02/19 21 021 Inactive icosapent ethyl 1 gram capsule RxNorm: 3776136 Take 2 Capsule(s) (2 gm) Oral BID with meals 09/12/19 21 022 Inactive Okay to dispense one 2gm tab if you have that available. icosapent ethyl 1 gram capsule RxNorm: 8347417 Take 2 Capsule(s) Oral BID 09/12/19 21 021 Inactive Okay to dispense one 2gm tab if you have that available. amlodipine 10 mg tablet RxNorm: 807457 Take 1 Tablet(s) Oral QD 09/04/19 022 Inactive aspirin 81 mg tablet,delayed release RxNorm: 060756 Take 1 Tablet(s) Oral QD 09/04/19 21 021 Inactive Levemir FlexTouch U-100 Insulin 100 unit/mL (3 mL) subcutaneous pen RxNorm: 734277 Inject 150 Unit(s) Subcutaneous BID 09/04/19 022 Inactive venlafaxine ER 150 mg tablet,extended release 24 hr RxNorm: 795847 Take 1 Tablet(s) Oral QD 09/04/19 Inactive clotrimazole-betame thasone 1 %-0.05 % topical cream RxNorm: 059201 Apply to rash on red area on left abdomen/chest Topical BID 08/10/19 Inactive amlodipine 5 mg tablet RxNorm: 212349 Take 1 Tablet(s) Oral QD 07/31/19 Inactive cephalexin 500 mg tablet RxNorm: 966009 Take 1 Tablet(s) Oral BID BID - Twice Daily 07/31/19 Inactive Start 08/01/20 pantoprazole 40 mg tablet,delayed release RxNorm: 601460 Take 1 Tablet(s) Oral QAM every morning 07/08/19 022 Inactive senna 8.6 mg tablet RxNorm: 905101 Take 1 Tablet(s) Oral QD 07/08/19 022 Inactive carbamazepine 200 mg tablet RxNorm: 982090 Take 1 Tablet(s) Oral BID 07/08/19 022 Inactive clopidogrel 75 mg tablet RxNorm: 257503 Take 1 Tablet(s) Oral QD 07/08/19 021 Inactive Blood Glucose Test strips RxNorm: Use 1 Test Strip QID at PRN 07/08/19 21 021 Inactive E11.42 Novolog Flexpen U-100 Insulin aspart 100 unit/mL (3 mL) subcutaneous RxNorm: 2991824 Administer per sliding scale Milliliter(s) Subcutaneous TID 151-200: 10 u; 201-250: 20 u; 251-300: 30 u; 301-350: 40 u; 351-400: 50 u. 07/08/19 022 Inactive lisinopril 5 mg tablet RxNorm: 401933 Take 1 Tablet(s) Oral QD 07/08/19 021 Inactive Novolog Flexpen U-100 Insulin aspart 100 unit/mL (3 mL) subcutaneous RxNorm: 7479644 Inject 85 Unit(s) Subcutaneous TID 07/08/19 022 Inactive pravastatin 80 mg tablet RxNorm: 692716 Take 1 Tablet(s) Oral QHS every night at bedtime 07/08/19 023 Inactive clotrimazole 1 % topical cream RxNorm: 196790 Apply to bilateral groin areas Topical BID 07/08/19 022 Inactive metoprolol succinate ER 200 mg tablet,extended release 24 hr RxNorm: 783747 Take 1 Tablet(s) Oral QD 07/08/19 021 Inactive Vitamin D3 25 mcg (1,000 unit) tablet RxNorm: 241254 Take 1 Tablet(s) Oral QD 07/08/19 021 Inactive isosorbide dinitrate 30 mg tablet RxNorm: 879283 Take 1 Tablet(s) Oral QD 07/08/19 021 Inactive Levemir FlexTouch U-100 Insulin 100 unit/mL (3 mL) subcutaneous pen RxNorm: 454487 Inject 140 Unit(s) Subcutaneous BID 07/08/19 021 Inactive torsemide 20 mg tablet RxNorm: 024899 Take 1 Tablet(s) Oral QD 07/08/19 023 Inactive venlafaxine 75 mg tablet RxNorm: 885538 Take 1 Tablet(s) Oral QD 07/08/19 021 Inactive acetaminophen 500 mg tablet RxNorm: 072109 Take 1 Tablet(s) Oral TID as needed for headache 06/18/19 021 Inactive acetaminophen 500 mg tablet RxNorm: Take 1 Tablet(s) Oral TID as needed for headache 06/18/19 021 Inactive Lyrica 100 mg capsule RxNorm: 635431 Take 1 Capsule(s) Oral QHS every night at bedtime 06/11/19 21 021 Inactive Lyrica 50 mg capsule RxNorm: 360336 Take 1 Capsule(s) Oral QAM every morning 06/10/19 21 021 Inactive hydrocortisone 2.5 % topical cream RxNorm: 385202 Apply to bilateral groin creases Topical BID 05/15/20 20 021 Inactive clotrimazole 1 % topical cream RxNorm: 479032 Apply to bilateral groin areas Topical BID 05/15/20 20 021 Inactive Lyrica 50 mg capsule RxNorm: 936581 Take 1 Capsule(s) Oral QAM every morning 05/14/20 20 020 Inactive Lyrica 100 mg capsule RxNorm: 328418 Take 1 Capsule(s) Oral QHS every night [...] Inactive Nystop 100,000 unit/gram topical powder RxNorm: 312149 Apply to abd folds, under breasts and L side of groin Topical BID x 14 days, then BID PRN 04/08/20 20 020 Inactive dx: yeast dermatitis Lyrica 100 mg capsule RxNorm: 563114 Take 1 Capsule(s) Oral QHS every night at bedtime 10/28/ Inactive Lyrica 50 mg capsule RxNorm: 349664 Take 1 Capsule(s) Oral QAM every morning 03/13/20 Inactive ketoconazole 2 % shampoo RxNorm: 032522 Apply Topical two times a week with showers 03/11/20 20 Inactive cholecalciferol (vitamin D3) 50 mcg (2,000 unit) tablet RxNorm: 809010 Take 1 Tablet(s) Oral QD 03/11/20 20 Inactive Zetia 10 mg tablet RxNorm: 528627 Take 1 Tablet(s) Oral QD 03/07/20 20 Inactive Zetia 10 mg tablet RxNorm: 902855 Take 1 Tablet(s) Oral QD 03/07/20 20 Inactive Lyrica 50 mg capsule RxNorm: 131598 Take 1 Capsule(s) Oral QAM every morning 02/15/20 Inactive Lyrica 100 mg capsule RxNorm: 042998 Take 1 Capsule(s) Oral QHS every night at bedtime 02/15/20 Inactive Lyrica 100 mg capsule RxNorm: 518269 Take 1 Capsule(s) Oral QHS every night at bedtime 02/15/20 Inactive Lyrica 50 mg capsule RxNorm: 993529 Take 1 Capsule(s) Oral QAM every morning 02/15/20 20 Inactive polyethylene glycol 3350 17 gram/dose oral powder RxNorm: 268254 Take 17=1 capful Gram(s) Oral BID as needed mix with 4-8oz of liquid 06/12/19 Active metoprolol succinate ER 200 mg tablet,extended release 24 hr RxNorm: 855016 Take 1 Tablet(s) Oral QD 08/12/19 23 Active loperamide 2 mg capsule RxNorm: 281834 Take 1 Capsule(s) Oral QID as needed 06/12/19 22 Active hydralazine 50 mg tablet RxNorm: 224816 Take 1 Tablet(s) Oral QID 08/12/19 23 Active venlafaxine ER 75 mg capsule,extended release 24 hr RxNorm: 946042 Take 3 Capsule(s) Oral QD 06/12/19 22 023 Inactive icosapent ethyl 1 gram capsule RxNorm: 2127728 Take 2 Capsule(s) (2 gm) Oral BID with meals 10/07/19 023 Inactive Okay to dispense one 2gm tab if you have that available. Levemir FlexTouch U-100 Insulin 100 unit/mL (3 mL) subcutaneous pen RxNorm: 911682 Inject 80 Unit(s) Subcutaneous BID 07/14/19 023 Inactive Novolog Flexpen U-100 Insulin aspart 100 unit/mL (3 mL) subcutaneous RxNorm: 3418295 Insert 30 Unit(s) Subcutaneous TID with meals 10/08/19 022 Inactive Medication Administered No Medication Administered data Reason For Visit No Reason For Visit data Plan of Care Planned Activity Notes Codes Status Date Referral: [facility] WPtel: [address] , [address] [id number] [place] Referral Records Received 09/21/2022 Referral: [facility] WPtel: [id number] [id number] [place] Referral Completed 05/28/2021 Referral: General Cardiology Referral Complet ed 01/03/2021 Referral: General Psychologist Referral Close d Referral: General Psychiatrist Referral Need Additional Information From Field Instructions Comment Date Leonid is a Male being seen living at [facility]. Initial [facility]PS visit 01/2020. PMHx including DMII, CAD w/ 5 stents, Depression, Seizure Disorder and CKD stage 3. He moved into [facility] in 12/2019 but after a hospitalization 05/2021 he moved to the [facility] to have closer nursing attention. Sister Jyotsna involved in his care cell# [phone] Guardian: Don (tapan met in person 09/01/21), now has Lexii (same group as don)Lab Schedule: * 02/08/2023
--- OUTSIDE RECORDS SUMMARY | 2023-04-13 19:00 | XMS_ITS | CCD ---
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 03/13/20 20 Inactive ketoconazole 2 % shampoo RxNorm: 796838 Apply Topical two times a week with showers 03/11/20 20 Inactive cholecalciferol (vitamin D3) 50 mcg (2,000 unit) tablet RxNorm: 834000 Take 1 Tablet(s) Oral QD 03/11/20 20 021 Inactive Zetia 10 mg tablet RxNorm: 606936 Take 1 Tablet(s) Oral QD 03/07/20 20 021 Inactive Zetia 10 mg tablet RxNorm: 914390 Take 1 Tablet(s) Oral QD 03/07/20 20 Inactive Lyrica 50 mg capsule RxNorm: 566304 Take 1 Capsule(s) Oral QAM every morning 02/15/20 20 Inactive Lyrica 100 mg capsule RxNorm: 557032 Take 1 Capsule(s) Oral QHS every night at bedtime 02/15/20 20 Inactive Lyrica 100 mg capsule RxNorm: 654487 Take 1 Capsule(s) Oral QHS every night at bedtime 02/15/20 20 Inactive Lyrica 50 mg capsule RxNorm: 638407 Take 1 Capsule(s) Oral QAM every morning 02/15/20 20 Inactive polyethylene glycol 3350 17 gram/dose oral powder RxNorm: 456951 Take 17=1 capful Gram(s) Oral BID as needed mix with 4-8oz of liquid 06/12/19 22 024 Inactive metoprolol succinate ER 200 mg tablet,extended release 24 hr RxNorm: 926914 Take 1 Tablet(s) Oral QD 08/12/19 23 Active loperamide 2 mg capsule RxNorm: 511554 Take 1 Capsule(s) Oral QID as needed 06/12/19 22 Active hydralazine 50 mg tablet RxNorm: 932816 Take 1 Tablet(s) Oral QID 08/12/19 23 Active venlafaxine ER 75 mg capsule,extended release 24 hr RxNorm: 351187 Take 3 Capsule(s) Oral QD 06/12/19 22 023 Inactive icosapent ethyl 1 gram capsule RxNorm: 3400059 Take 2 Capsule(s) (2 gm) Oral BID with meals 10/07/19 23 023 Inactive Okay to dispense one 2gm tab if you have that available. Levemir FlexTouch U-100 Insulin 100 unit/mL (3 mL) subcutaneous pen RxNorm: 852156 Inject 80 Unit(s) Subcutaneous BID 07/14/19 23 023 Inactive Novolog Flexpen U-100 Insulin aspart 100 unit/mL (3 mL) subcutaneous RxNorm: 4213319 Insert 30 Unit(s) Subcutaneous TID with meals 10/08/19 22 022 Inactive Medication Administered No Medication Administered data Reason For Visit No Reason For Visit data Plan of Care Planned Activity Notes Codes Status Date Referral: [facility] WPtel: [id number] [id number] [place] Referral Records Received 09/21/2022 Referral: [facility] WPtel: [id number] [id number] [place] Referral Completed 05/28/2021 Referral: General Cardiology Referral Complet ed 01/03/2021 Referral: General Psychologist Referral Close d Referral: General Psychiatrist Referral Patient/Family Scheduling Appointment Instructions Comment Date Leonid is a Male being seen living [facility]. Initial [facility] visit 01/2020. PMHx including DMII, CAD w/ 5 stents, Depression, Seizure Disorder and CKD stage 3. He moved into [facility] in 12/2019 but after a hospitalization 05/2021 he moved to [facility] to have closer nursing attention. Sister Jyotsna involved in his care cell# [phone] Guardian: Don (tapan met in person 09/01/21), now has Lexii (same group as don)Lab Schedule: / (CBC with diff, CMP, A1c) (Novemebr: CBC, CMP, A1c, Lipids, VitD) 10/08/2023
--- OUTSIDE RECORDS SUMMARY | 2023-04-15 19:00 | XMS_ITS | CCD ---
Author Name Marian VELASCO Chelo Address [address] [place] [address] Phone Organization [facility] Phone Care Team Providers Care Ironer Sock Name Role Phone Arpit [facility] Primary Care Provider Leona vailable Arpit [facility] Chronic Care Management U navailable Summary Purpose DataExchange Insurance Providers Payer name Policy type / Coverage type Covered alliance party ID Effective Begin Date Effective End Date Medicare [place] Part B [id number] Unknown Unknown [place] Part B [id number] Unknown Unknown Family history Sister Brittany Suggs [...] Unknown Correction 09/03/[address]: 0182447 Non-Smoker / No History of Smoking 09/02/[address]: 146567071 No Alcohol Consum ption 09/02/2020 Allergies, Adverse Reactions, Alerts Substance Reaction Codes Entered Date Inactivated Date Status LISINOPRIL RxNorm: 50506 02/12/2020 No Inactive Da te Active Metformin HCl Unknown 02/12/2020 No Inactive Cristiano e Active Problems Condition Codes Effective Dates Condition St atus Coronary artery disease invo lving [place] coronary artery of [place] heart, angina presence unspecified ICD-10: I25.10 [...] F33. 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 ICD-10: Z79.899 ICD-9: [...] Fill Instructions rosuvastatin 40 mg tablet RxNorm: 983732 Take 1 Tablet(s) Oral QPM every evening 04/16/20 024 Inactive D/C rosuvastatin 20mg venlafaxine ER 75 mg capsule,extended release 24 hr RxNorm: 160498 Take 3 Capsule(s) Oral QD 04/14/20 23 023 Inactive pregabalin 100 mg capsule RxNorm: 007164 Take 1 Capsule(s) Oral QAM every morning [...] meter clotrimazole 1 % topical cream RxNorm: 816633 Take apply topically to abdominal folds twice daily for 14 days 03/12/20 024 Inactive Ozempic 1 mg/dose (4 mg/3 mL) subcutaneous pen injector RxNorm: 5775092 Inject 1 Milligram(s) Subcutaneous QW once a week 03/11/20 23 023 Inactive rosuvastatin 20 mg tablet RxNorm: 617684 Take 1 Tablet(s) Oral QD 02/26/20 23 023 Inactive d/c pravastatin 80mg Ozempic 1 mg/dose (4 mg/3 mL) subcutaneous pen injector RxNorm: 7278819 Inject 1 Milligram(s) Subcutaneous QW once a week 02/20/20 23 023 Inactive pregabalin 150 mg capsule RxNorm: 173079 Take 1 Capsule(s) Oral HS at bed time 02/19/20 23 023 Inactive pregabalin 100 mg capsule RxNorm: 387203 Take 1 Capsule(s) Oral QAM every morning 02/18/20 23 023 Inactive FreeStyle Chema 2 Sensor kit RxNorm: use as directed 02/04/20 23 024 Inactive venlafaxine ER 75 mg capsule,extended release 24 hr RxNorm: 518603 Take 3 Capsule(s) Oral QD 02/04/20 23 023 Inactive FreeStyle Chema 2 Sensor kit RxNorm: use as directed 02/04/20 023 Inactive fluconazole 150 mg tablet RxNorm: 011905 Take 1 Tablet(s) Oral on day 3 and on day 6 02/03/20 23 024 Active chlorthalidone 25 mg tablet RxNorm: 577765 Take 1 Tablet(s) Oral QAM every morning 02/03/20 23 No Stop Date Active venlafaxine ER 150 mg capsule,extended release 24 hr RxNorm: 035638 Take 1 Capsule(s) Oral QD 02/03/20 023 Inactive acetaminophen 500 mg tablet RxNorm: 121216 1 TABLET ORALLY 3 TIMES DAILY (MAX APAP:4GM/24HR) 12/15/19 23 023 Inactive potassium chloride ER 20 mEq tablet,extended release RxNorm: 654936 Take 1 Tablet(s) Oral BID 12/09/19 23 024 Inactive d/c 20mEq once daily (sent from hospital) clotrimazole 1 % topical cream RxNorm: 769193 apply 1g topically to top of feet and in between toes BID 12/09/19 23 023 Inactive nystatin 100,000 unit/gram topical powder RxNorm: 528672 APPLY TO AFFECTED AREAS TOPICALLY 2 TIMES DAILY 11/21/19 23 024 Inactive Nystop 100,000 unit/gram topical powder RxNorm: 888624 Apply to abd folds, under breasts and L side of groin Topical BID x 14 days, then BID PRN 11/20/19 23 023 Inactive dx: yeast dermatitis [place] Ultra Strength 4 %-30 %-10 % topical cream RxNorm: 017465 Apply 1 Gram(s) Topical QID PRN to feet and legs for neuropathic pain 11/11/19 23 024 Active hydrocortisone 2.5 % topical cream RxNorm: 447883 Apply 1/2 Gram(s) Topical BID as needed 11/10/19 024 Inactive clotrimazole 1 % topical cream RxNorm: 970684 Apply 1/2 Gram(s) Topical BID Apply to affected areas of groin, periarea, and abdominal topically 2 times daily 11/10/19 023 Inactive Levemir FlexPen 100 unit/mL (3 mL) solution subcutaneous insulin pen RxNorm: 332410 Inject 30 Unit(s) Subcutaneous BID 10/07/19 023 Inactive Humulin R U-500 (Concentrated) Insulin 500 unit/mL subcutaneous soln RxNorm: 393379 Inject 100 Unit(s) Subcutaneous TID 10/07/19 024 Inactive Ozempic 0.25 mg or 0.5 mg (2 mg/3 mL) subcutaneous pen injector RxNorm: 7823968 Inject 1/2 Milligram(s) Subcutaneous QW once a week 10/07/19 024 Inactive aripiprazole 15 mg tablet RxNorm: 988204 1/2 TAB (7.5MG) ORALLY DAILY (DX:MAJOR DEPRESSIVE DISORDER) 09/23/19 023 Inactive Lancets,Thin 28 gauge RxNorm: Use 1 as directed QID 09/15/19 23 024 Inactive Accu-Chek Guide test strips RxNorm: Use 1 Test Strip QID 09/15/19 023 Inactive ok to substitute with any covered alternative test strip torsemide 20 mg tablet RxNorm: 552612 Take 1 Tablet(s) Oral BID 09/09/19 23 024 Inactive d/c once daily dosing carvedilol 25 mg tablet RxNorm: 195384 Take 1 Tablet(s) Oral QD 08/25/19 23 024 Inactive pregabalin 150 mg capsule RxNorm: 024270 1 Capsule(s) Oral HS at bed time 08/18/19 023 Inactive pregabalin 100 mg capsule RxNorm: 818773 1 Capsule(s) Oral QAM every morning 08/18/19 023 Inactive carvedilol 25 mg tablet RxNorm: 626423 1 Tablet(s) Oral QD 07/28/19 23 023 Inactive lisinopril 20 mg tablet RxNorm: 523292 Give 1 Tablet(s) Oral QD 07/28/19 23 023 Inactive Lyrica 150 mg capsule RxNorm: 829546 Take 1 Capsule(s) Oral QHS every night at bedtime 07/19/19 23 023 Inactive d/c 100mg dose Diflucan 150 mg tablet RxNorm: 978182 Take 1 Tablet(s) Oral QD repeat on day 3 and 6 07/19/19 23 023 Inactive pregabalin 100 mg capsule RxNorm: 462584 Take 1 Capsule(s) Oral QAM every morning 07/19/19 023 Inactive gatifloxacin 0.5 % eye drops RxNorm: 692947 Instill 1 Drop(s) as directed TID Instill 1 drop in to affected eye(s) starting 1 day prior to surgery and continue until gone (do not exceed 4 weeks). 07/13/19 23 023 Inactive carvedilol 25 mg tablet RxNorm: 608861 2 Tablet(s) Oral BID 07/13/19 023 Inactive Humulin R Regular U-100 Insulin 100 unit/mL injection solution RxNorm: 144432 85 Unit(s) Injection TID 07/13/19 23 023 Inactive ketorolac 0.5 % eye drops RxNorm: 754427 Instill 1 Drop(s) as directed QID Instill 1 drop into affected eye(s) 4 times daily starting 1 day prior to surgery and continue until gone (do not exceed 4 weeks). 07/13/19 23 023 Inactive Diflucan 150 mg tablet RxNorm: 061599 Take 1 Tablet(s) Oral QD repeat on day 3 and 6 06/30/19 23 023 Inactive Accu-Chek Guide test strips RxNorm: Use 1 Test Strip QID Use 1 test strip to monitor blood glucose 4 times daily and as needed. Dx:E11.42. 06/23/19 23 023 Inactive ok to substitute with any covered alternative test strip dextromethorphan-gu aifenesin 10 mg-100 mg/5 mL oral liquid RxNorm: 827623 Take 10 Milliliter(s) Oral every 4 hours as needed for cough 06/19/19 23 023 Inactive dextromethorphan-gu aifenesin 10 mg-100 mg/5 mL oral liquid RxNorm: 524741 Take 10 Milliliter(s) Oral every 4 hours as needed for cough 06/19/19 023 Inactive Lyrica 150 mg capsule RxNorm: 053532 Take 1 Capsule(s) Oral QHS every night at bedtime 06/18/19 023 Inactive d/c 100mg dose aripiprazole 15 mg tablet RxNorm: 184929 /2 TAB (7.5MG) ORALLY DAILY (DX:MAJOR DEPRESSIVE DISORDER) 06/05/19 023 Inactive pregabalin 100 mg capsule RxNorm: 608568 1 Capsule(s) Oral QAM every morning 06/02/19 023 Inactive Banophen 50 mg capsule RxNorm: 8953712 Take 1 Capsule(s) Oral Q6H every 6 hours as needed 05/19/19 23 No Stop Date Active Novolog Flexpen U-100 Insulin aspart 100 unit/mL (3 mL) subcutaneous RxNorm: 4615904 Inject 10 Unit(s) Subcutaneous QHS every night at bedtime with nighttime snack 04/08/20 022 Inactive Novolog Flexpen U-100 Insulin aspart 100 unit/mL (3 mL) subcutaneous RxNorm: 7137039 Inject 42 Unit(s) Subcutaneous TID in addition to sliding scale 04/08/20 022 Inactive d/c 36u albuterol sulfate HFA 90 mcg/actuation aerosol inhaler RxNorm: 2402960 Take 2 Puff(s) Inhalation Q4H every four hours as needed as needed for SOB, cough, or wheezing 04/07/20 030 Active Banophen 50 mg capsule RxNorm: 0411903 Take 1 Capsule(s) Oral Q6H every 6 hours as needed 04/06/20 023 Inactive diphenhydramine 50 mg tablet RxNorm: 0372649 Take 1 Tablet(s) Oral Q6H every 6 hours as needed 04/06/20 22 022 Inactive diphenhydramine 50 mg tablet RxNorm: 9417708 1 Tablet(s) Oral Q6H every 6 hours as needed 04/06/20 22 022 Inactive Abilify 15 mg tablet RxNorm: 246626 1/2 Tablet(s) Oral QD 03/10/20 22 023 Inactive Shingrix (PF) 50 mcg/0.5 mL intramuscular suspension, kit RxNorm: 1684861 Administer 1/2 Milliliter(s) Intramuscular QD one time shingrix step 2 ( step 1 given 11/04/21) WITH needle - Nursing please administer upon arrival and once administered post a bridge message 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, 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, 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, and lot# so we can update [facility] 02/18/20 22 022 Inactive dispense with needle Shingrix (PF) 50 mcg/0.5 mL intramuscular suspension, kit RxNorm: 7926397 Administer 1/2 Milliliter(s) Intramuscular QD one time shingrix step 2 ( step 1 given 11/04/21) WITH needle - Nursing please administer upon arrival and once administered post a bridge message with 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 of administration, 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, expiration date, and lot# so we can update [facility] 02/18/20 22 022 Inactive dispense with needle polyethylene glycol 3350 17 gram/dose oral powder RxNorm: 332328 Take 17=1 capful Gram(s) Oral QD mix with 4-8oz of liquid 01/08/20 023 Inactive take this in addition to BID prn order Lyrica 100 mg capsule RxNorm: 840496 Take 1 Capsule(s) Oral QAM every morning 01/08/20 22 022 Inactive d/c 50mg dose acetaminophen 500 mg tablet RxNorm: 548841 Take 1 Tablet(s) Oral TID 01/08/20 22 022 Inactive d/c PRN order Lyrica 150 mg capsule RxNorm: 208904 Take 1 Capsule(s) Oral QHS every night at bedtime 01/08/20 22 023 Inactive d/c 100mg dose Abilify 5 mg tablet RxNorm: 216756 Take 1 Tablet(s) Oral QD take 1 tab po QD #30 refill 5 dx: MDD 12/12/19 22 022 Inactive Abilify 5 mg tablet RxNorm: 907743 Take 1 Tablet(s) Oral QD take 1 tab po QD #30 refill 5 dx: MDD 12/12/19 22 022 Inactive Novolog Flexpen U-100 Insulin aspart 100 unit/mL (3 mL) subcutaneous RxNorm: 7434308 Inject 42 Unit(s) Subcutaneous TID in addition to sliding scale 12/10/19 22 022 Inactive d/c 36u chlorthalidone 25 mg tablet RxNorm: 128677 Take 1 Tablet(s) Oral QAM every morning 12/10/19 22 023 Inactive pregabalin 50 mg capsule RxNorm: 138632 Take 1 Capsule(s) Oral QAM every morning 11/12/19 22 022 Inactive tetanus-diphtheria toxoids-Td 2 Lf unit-2 Lf unit/0.5 mL IM suspension RxNorm: 139 Take 0.5 Miscellaneous Intramuscular 11/12/19 22 022 Inactive need tdap - nursing to administer upon arrival pregabalin 50 mg capsule RxNorm: 345995 Take 1 Capsule(s) Oral QAM every morning 10/16/19 22 022 Inactive pregabalin 50 mg capsule RxNorm: 990240 Take 1 Capsule(s) Oral QAM every morning 10/16/19 22 022 Inactive pregabalin 50 mg capsule RxNorm: 642417 1 Capsule(s) Oral QAM every morning 10/15/19 22 022 Inactive Shingrix (PF) 50 mcg/0.5 mL intramuscular suspension, kit RxNorm: 5022045 Administer 1/2 Milliliter(s) Intramuscular one time Nursing please administer upon arrival and once administered post a bridge message with date of administration, 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, expiration date, and lot# so we can update [facility]. 10/09/19 22 022 Inactive shingrix step 1 Shingrix (PF) 50 mcg/0.5 mL intramuscular suspension, kit RxNorm: 4025615 Administer 1/2 Milliliter(s) Intramuscular one time Nursing please administer upon arrival and once administered post a bridge message with date of administration, 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, expiration date, and lot# so we can update [facility]. 10/09/19 22 Inactive shingrix step 1 cholecalciferol (vitamin D3) 1,250 mcg (50,000 unit) capsule RxNorm: 305579 Take 1 Capsule(s) Oral QW once a [...] aspart 100 unit/mL (3 mL) subcutaneous RxNorm: 9503812 Inject 10 Unit(s) Subcutaneous QHS every night at bedtime with nighttime snack 10/08/19 22 Inactive Shingrix (PF) 50 mcg/0.5 mL intramuscular suspension, kit RxNorm: 2155940 ADMINISTER 2-DOSE SERIES PER CDC GUIDELINES 10/08/19 22 Active Shingrix (PF) 50 mcg/0.5 mL intramuscular suspension, kit RxNorm: 2533886 ADMINISTER 2-DOSE SERIES PER CDC GUIDELINES 10/08/19 22 Inactive Novolog Flexpen U-100 Insulin aspart 100 unit/mL (3 mL) subcutaneous RxNorm: 1724061 Inject 36 Unit(s) Subcutaneous TID in addition to sliding scale 10/08/19 22 Inactive Novofine Autocover 30 gauge x 1/3 needle RxNorm: Use 1 Miscellaneous UD as directed Use 1 needle as directed to administer insulin 5 times a day Dx:E11.42. 10/03/19 22 Inactive ok to substitute with any covered alternative pen needle benzoyl peroxide 10 % topical cleanser RxNorm: 952125 Apply 1 Application Topical QD apply to face, wash rinse and dry once daily (may change to QOD if drying) 08/19/19 22 022 Inactive (%covered by insurance) #60ml refill 11 dx: acne benzoyl peroxide 10 % topical cleanser RxNorm: 968846 Apply 1 Application Topical QD apply to face, wash rinse and dry once daily (may change to QOD if drying) 08/19/19 22 022 Inactive (%covered by insurance) #60ml refill 11 dx: acne benzoyl peroxide 10 % topical cleanser RxNorm: 146304 Apply 1 Application Topical QD apply to face, wash rinse and dry once daily (may change to QOD if drying) 08/19/19 22 022 Inactive (%covered by insurance) #60ml refill 11 dx: acne Lyrica 50 mg capsule RxNorm: 730739 Take 1 Capsule(s) Oral QAM every morning Take 1 capsule by mouth once daily 08/19/19 022 Inactive benzoyl peroxide 10 % topical cleanser RxNorm: 373157 Apply 1 Application Topical QD apply to face, wash rinse and dry once daily (may change to QOD if drying) 08/19/19 22 022 Inactive (%covered by insurance) #60ml refill 11 dx: acne Lyrica 100 mg capsule RxNorm: 360789 Take 1 Capsule(s) Oral QHS every night at bedtime Take 1 capsule by mouth once daily at bedtime 08/19/19 22 022 Inactive Lyrica 100 mg capsule RxNorm: 148206 Take 1 Capsule(s) Oral QHS every night at bedtime Take 1 capsule by mouth once daily at bedtime 08/16/19 022 Inactive Lyrica 50 mg capsule RxNorm: 737331 Take 1 Capsule(s) Oral QAM every morning Take 1 capsule by mouth once daily 08/16/19 22 022 Inactive Levemir FlexTouch U-100 Insulin 100 unit/mL (3 mL) subcutaneous pen RxNorm: 011890 Inject 86 Unit(s) Subcutaneous BID 08/05/19 22 022 Inactive d/c 83units BID Lyrica 100 mg capsule RxNorm: 371750 Take 1 Capsule(s) Oral QHS every night at bedtime Take 1 capsule by mouth once daily at bedtime 07/14/19 22 Inactive Lyrica 50 mg capsule RxNorm: 430477 Take 1 Capsule(s) Oral QAM every morning Take 1 capsule by mouth once daily 07/14/19 22 Inactive Levemir FlexTouch U-100 Insulin 100 unit/mL (3 mL) subcutaneous pen RxNorm: 217246 Inject 83 Unit(s) Subcutaneous BID 07/08/19 22 [...] 30 mg tablet,extended release 24 hr RxNorm: 575860 Take 1 Tablet(s) Oral QD 05/05/20 024 Inactive hydralazine 50 mg tablet RxNorm: 980381 Take 1 Tablet(s) Oral QID 05/05/20 022 Inactive venlafaxine ER 225 mg tablet,extended release 24 hr RxNorm: 752780 Take 1 Tablet(s) Oral QD 05/05/20 021 Inactive venlafaxine ER 225 mg tablet,extended release 24 hr RxNorm: 074437 Take 1 Tablet(s) Oral QD 05/05/20 022 Inactive hydralazine 50 mg tablet RxNorm: 095128 Take 1 Tablet(s) Oral QID 05/05/20 Inactive aspirin 81 mg tablet,delayed release RxNorm: 841232 Take 1 Tablet(s) Oral QD 03/31/20 022 Inactive Zetia 10 mg tablet RxNorm: 599338 Take 1 Tablet(s) Oral QD 03/31/20 024 Inactive Vitamin D2 1,250 mcg (50,000 unit) capsule RxNorm: 5314253 Take 1 Capsule(s) Oral QW once a week x 12 weeks 03/31/20 022 Inactive Vitamin D2 1,250 mcg (50,000 unit) capsule RxNorm: 1691667 Take 1 Capsule(s) Oral QW once a week 03/31/20 021 Inactive Zetia 10 mg tablet RxNorm: 351754 Take 1 Tablet(s) Oral QD 03/31/20 Inactive hydralazine 25 mg tablet RxNorm: 056411 Take 1 Tablet(s) Oral QID 03/31/20 Inactive hydralazine 25 mg tablet RxNorm: 135951 Take 1 Tablet(s) Oral QID 03/31/20 021 Inactive hydralazine 10 mg tablet RxNorm: 472384 Take 1 Tablet(s) Oral QID 03/03/20 021 Inactive cephalexin 500 mg tablet RxNorm: 586695 Take 1 Tablet(s) Oral QID 02/27/20 021 Inactive cephalexin 500 mg tablet RxNorm: 132497 Take 1 Tablet(s) Oral QID 02/27/20 021 Inactive lisinopril 40 mg tablet RxNorm: 421134 Take 1 Tablet(s) Oral QD 02/11/20 023 Inactive Eliquis 5 mg tablet RxNorm: 5190028 Take 1 Tablet(s) Oral BID 01/05/20 21 022 Inactive Eliquis 5 mg tablet RxNorm: 4387257 Take 2 Tablet(s) Oral QD 01/01/20 021 Inactive Lyrica 50 mg capsule RxNorm: 016127 Take 1 Capsule(s) Oral QAM every morning 12/24/19 021 Inactive Lyrica 100 mg capsule RxNorm: 655088 Take 1 Capsule(s) Oral QHS every night at bedtime 12/24/19 021 Inactive clotrimazole 1 % topical cream RxNorm: 090036 Apply to right foot and toes Topical BID 12/04/19 21 023 Inactive metoprolol succinate ER 200 mg tablet,extended release 24 hr RxNorm: 550570 Take 1 Tablet(s) Oral QD 12/04/19 023 Inactive ciprofloxacin 500 mg tablet RxNorm: 489212 Take 1 Tablet(s) Oral QD 11/30/19 21 021 Inactive DX ofloxacin otic drops Accu-Chek Guide test strips RxNorm: USE 1 TO CHECK GLUCOSE 4 TIMES DAILY AND NEEDED 11/15/19 21 023 Inactive Blood Glucose Test strips RxNorm: Use 1 Test Strip QID at PRN 11/05/19 21 023 Inactive E11.42 lisinopril 30 mg tablet RxNorm: 885589 Take 1 Tablet(s) Oral QD 10/30/19 21 021 Inactive lisinopril 20 mg tablet RxNorm: 656303 Take 1 Tablet(s) Oral QD 10/23/19 21 021 Inactive lisinopril 20 mg tablet RxNorm: 615637 Take 1 Tablet(s) Oral QD 10/23/19 21 021 Inactive lisinopril 10 mg tablet RxNorm: 715085 Take 1 Tablet(s) Oral QD 10/02/19 21 021 Inactive icosapent ethyl 1 gram capsule RxNorm: 9424574 Take 2 Capsule(s) (2 gm) Oral BID with meals 09/12/19 024 Inactive Okay to dispense one 2gm tab if you have that available. icosapent ethyl 1 gram capsule RxNorm: 1402172 Take 2 Capsule(s) Oral BID 09/12/19 21 021 Inactive Okay to dispense one 2gm tab if you have that available. amlodipine 10 mg tablet RxNorm: 376690 Take 1 Tablet(s) Oral QD 09/04/19 21 Inactive aspirin 81 mg tablet,delayed release RxNorm: 633480 Take 1 Tablet(s) Oral QD 09/04/19 21 021 Inactive Levemir FlexTouch U-100 Insulin 100 unit/mL (3 mL) subcutaneous pen RxNorm: 158044 Inject 150 Unit(s) Subcutaneous BID 09/04/19 21 Inactive venlafaxine ER 150 mg tablet,extended release 24 hr RxNorm: 566906 Take 1 Tablet(s) Oral QD 09/04/19 21 021 Inactive clotrimazole-betame thasone 1 %-0.05 % topical cream RxNorm: 896795 Apply to rash on red area on left abdomen/chest Topical BID 08/10/19 21 021 Inactive amlodipine 5 mg tablet RxNorm: 729300 Take 1 Tablet(s) Oral QD 07/31/19 21 021 Inactive cephalexin 500 mg tablet RxNorm: 575723 Take 1 Tablet(s) Oral BID BID - Twice Daily 07/31/19 21 021 Inactive Start 08/01/20 pantoprazole 40 mg tablet,delayed release RxNorm: 464710 Take 1 Tablet(s) Oral QAM every morning 07/08/19 21 022 Inactive senna 8.6 mg tablet RxNorm: 302208 Take 1 Tablet(s) Oral QD 07/08/19 022 Inactive carbamazepine 200 mg tablet RxNorm: 153853 Take 1 Tablet(s) Oral BID 07/08/19 21 022 Inactive clopidogrel 75 mg tablet RxNorm: 957493 Take 1 Tablet(s) Oral QD 07/08/19 021 Inactive Blood Glucose Test strips RxNorm: Use 1 Test Strip QID at PRN 07/08/19 21 Inactive E11.42 Novolog Flexpen U-100 Insulin aspart 100 unit/mL (3 mL) subcutaneous RxNorm: 5949575 Administer per sliding scale Milliliter(s) Subcutaneous TID 151-200: 10 u; 201-250: 20 u; 251-300: 30 u; 301-350: 40 u; 351-400: 50 u. 07/08/19 022 Inactive lisinopril 5 mg tablet RxNorm: 131070 Take 1 Tablet(s) Oral QD 07/08/19 021 Inactive Novolog Flexpen U-100 Insulin aspart 100 unit/mL (3 mL) subcutaneous RxNorm: 3877228 Inject 85 Unit(s) Subcutaneous TID 07/08/19 022 Inactive pravastatin 80 mg tablet RxNorm: 775760 Take 1 Tablet(s) Oral QHS every night at bedtime 07/08/19 023 Inactive clotrimazole 1 % topical cream RxNorm: 173364 Apply to bilateral groin areas Topical BID 07/08/19 21 022 Inactive metoprolol succinate ER 200 mg tablet,extended release 24 hr RxNorm: 663472 Take 1 Tablet(s) Oral QD 07/08/19 21 021 Inactive Vitamin D3 25 mcg (1,000 unit) tablet RxNorm: 548544 Take 1 Tablet(s) Oral QD 07/08/19 21 021 Inactive isosorbide dinitrate 30 mg tablet RxNorm: 730070 Take 1 Tablet(s) Oral QD 07/08/19 21 021 Inactive Levemir FlexTouch U-100 Insulin 100 unit/mL (3 mL) subcutaneous pen RxNorm: 992350 Inject 140 Unit(s) Subcutaneous BID 07/08/19 21 021 Inactive torsemide 20 mg tablet RxNorm: 273358 Take 1 Tablet(s) Oral QD 07/08/19 21 023 Inactive venlafaxine 75 mg tablet RxNorm: 373574 Take 1 Tablet(s) Oral QD 07/08/19 021 Inactive acetaminophen 500 mg tablet RxNorm: 178207 Take 1 Tablet(s) Oral TID as needed for headache 06/18/19 21 021 Inactive acetaminophen 500 mg tablet RxNorm: 220358 Take 1 Tablet(s) Oral TID as needed for headache 06/18/19 021 Inactive Lyrica 100 mg capsule RxNorm: 935873 Take 1 Capsule(s) Oral QHS every night at bedtime 06/11/19 21 021 Inactive Lyrica 50 mg capsule RxNorm: 370044 Take 1 Capsule(s) Oral QAM every morning 06/10/19 21 021 Inactive hydrocortisone 2.5 % topical cream RxNorm: 015510 Apply to bilateral groin creases Topical BID 05/15/20 20 021 Inactive clotrimazole 1 % topical cream RxNorm: 554363 Apply to bilateral groin areas Topical BID 05/15/20 20 021 Inactive Lyrica 50 mg capsule RxNorm: 132414 Take 1 Capsule(s) Oral QAM every morning 05/14/20 20 020 Inactive Lyrica 100 mg capsule RxNorm: 024500 Take 1 Capsule(s) Oral QHS every night [...] Inactive Nystop 100,000 unit/gram topical powder RxNorm: 301186 Apply to abd folds, under breasts and L side of groin Topical BID x 14 days, then BID PRN 04/08/20 20 Inactive dx: yeast dermatitis Lyrica 100 mg capsule RxNorm: 684074 Take 1 Capsule(s) Oral QHS every night at bedtime 03/13/20 20 Inactive Lyrica 50 mg capsule RxNorm: 485522 Take 1 Capsule(s) Oral QAM every morning 03/13/20 20 Inactive ketoconazole 2 % shampoo RxNorm: 537155 Apply Topical two times a week with showers 03/11/20 20 Inactive cholecalciferol (vitamin D3) 50 mcg (2,000 unit) tablet RxNorm: 644184 Take 1 Tablet(s) Oral QD 03/11/20 20 Inactive Zetia 10 mg tablet RxNorm: 316720 Take 1 Tablet(s) Oral QD 03/07/20 20 021 Inactive Zetia 10 mg tablet RxNorm: 962780 Take 1 Tablet(s) Oral QD 03/07/20 20 Inactive Lyrica 50 mg capsule RxNorm: 357941 Take 1 Capsule(s) Oral QAM every morning 02/15/20 20 Inactive Lyrica 100 mg capsule RxNorm: 374403 Take 1 Capsule(s) Oral QHS every night at bedtime 02/15/20 20 Inactive Lyrica 100 mg capsule RxNorm: 077705 Take 1 Capsule(s) Oral QHS every night at bedtime 02/15/20 20 Inactive Lyrica 50 mg capsule RxNorm: 030145 Take 1 Capsule(s) Oral QAM every morning 02/15/20 20 020 Inactive polyethylene glycol 3350 17 gram/dose oral powder RxNorm: 758224 Take 17=1 capful Gram(s) Oral BID as needed mix with 4-8oz of liquid 06/12/19 22 024 Inactive metoprolol succinate ER 200 mg tablet,extended release 24 hr RxNorm: 562442 Take 1 Tablet(s) Oral QD 08/12/19 23 Active loperamide 2 mg capsule RxNorm: 235430 Take 1 Capsule(s) Oral QID as needed 06/12/19 22 Active hydralazine 50 mg tablet RxNorm: 710447 Take 1 Tablet(s) Oral QID 08/12/19 23 Active venlafaxine ER 75 mg capsule,extended release 24 hr RxNorm: 623377 Take 3 Capsule(s) Oral QD 06/12/19 22 023 Inactive icosapent ethyl 1 gram capsule RxNorm: 7423804 Take 2 Capsule(s) (2 gm) Oral BID with meals 10/07/19 23 023 Inactive Okay to dispense one 2gm tab if you have that available. Levemir FlexTouch U-100 Insulin 100 unit/mL (3 mL) subcutaneous pen RxNorm: 858276 Inject 80 Unit(s) Subcutaneous BID 07/14/19 23 023 Inactive Novolog Flexpen U-100 Insulin aspart 100 unit/mL (3 mL) subcutaneous RxNorm: 2769244 Insert 30 Unit(s) Subcutaneous TID with meals 10/08/19 22 022 Inactive Medication Administered No Medication Administered data Vital Signs Date Vital 04/14/2023 Height: 5'5 Code: 8302-2 Weight : Code: 3141-9 Reason For Visit No Reason For Visit data Encounters Encounter Performer Location Location Address Codes [place]iano e ([id number]) Home or Residence Visit Est Pt - Moderate Level, 40 mins Diagnosis: Coronary artery disease involving [place] coronary artery of [place] heart, angina presence unspecified[ICD10 : I25.10] Diagnosis: Type 2 diabetes mellitus with diabetic polyneuropathy, with long-term current use of insulin[ICD10: E11.42] Diagnosis: Reducible umbilical hernia[ICD10: K42.9] Diagnosis: Onychogryposis[IC D10: L60.2] Chelo Fonseca [facility] [place] [facility] [address] [address] [address] [place] [id number] CPT-4: 49903 04/14/2023 Plan of Care Planned Activity Notes Codes Status Date Patient Education: Patient Medication Summary Completed 04/14/2023 Patient Education: Influenza Complet ed 04/14/2023 Appointment: Sandra Clark WPtel: [address] [facility] 300 [id number] Telehealth Psych Follow Up 12/09 Appointment: Tapan Shirley WPtel: [address] [facility] 300 [id number] [facility] 10/26/2022 Referral: [facility] WPtel: [address], [address] [id number] Referral Records Received 09/21/2022 Appointment: Tapan Shirley WPtel: [address] [facility] 300 [id number] [place] F/U 08/11/2022 Appointment: Tapan Shirley WPtel: [address] [facility] 300 [id number] [place] F/U 07/14/2022 Appointment: Tapan Shirley WPtel: [address] [facility] 300 [id number] [place] F/U 02/10/2022 Referral: [facility] WPtel: [address] [id number] [place] Referral Completed 05/28/2021 Referral: General Cardiology Referral Complet ed 01/03/2021 Referral: General Psychologist Referral Close d Referral: General Psychiatrist Referral Patient/Family Scheduling Appointment Instructions Comment Date Leonid is a Male being seen living at [facility]. Initial BPS visit 01/2020. PMHx including DMII, CAD w/ 5 stents, Depression, Seizure Disorder and CKD stage 3. He moved into [facility] in 12/2019 but after a hospitalization 05/2021 he moved to the [facility] to have closer nursing attention. Sister Jyotsna involved in his care cell# [phone] Guardian: Giulia (tapan met in person 09/01/21), now has Lexii (same group as giulia)Lab Schedule: (CBC with diff, CMP, A1c) (Novemebr: CBC, CMP, A1c, Lipids, VitD) 10/08/2023 Type 2 diabetes mellitus wit h diabetic polyneuropathy, with long-term current use of insulin DM2: High dose insulin. Needs to follow up with endocrinology. This has been set up for mid-April Continue mealtime insulin 100U TID Continue Levemir 30U BID HLD: Notable elevations. Trigs 73030 (Feb 2023) >> 1416 (Mar 2023); Non-HDL 219 >> 151. Again discussed dangers of severely elevated lipids and tryglicerides. He makes poor dietary choices but is also very limited in terms of food choices. Will eat whatever the staff give me and does not advocate for a heart healthy diet. Needs to be on high intensity statin. Has tolerated Crestor 20mg without side effects. Start Rosuvastatin 40mg QD. Continue Zetia 10mg QD Coronary artery disease involving [place] coronary artery of [place] heart, angina presence unspecified Keep follow up cardiology for May as scheduled. Stable cardiopulmonary symptoms today. No acute concerns. Reducible umbilical hernia Has had for years- [...] as treatment not appropriate or beneficial to patient.. 04/14/2023
--- OUTSIDE RECORDS SUMMARY | 2023-04-27 19:00 | XMS_ITS | CCD ---
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 [facility], [facility] U navailable Summary Purpose DataExchange Insurance Providers Payer name Policy type / Coverage type Covered constitution party ID Effective Begin Date Effective End Date Medicare [place] Medicare Part B [id number] Unknown Unknown [place] Part B [id number] Unknown Unknown Family history Sister Brittany Suggs [...] Custodial 09/03/[address]: 0575174 Non-Smoker / No History of Smoking 09/02/[address]: 231571922 No Alcohol Consum ption 09/02/2020 Allergies, Adverse Reactions, Alerts Substance Reaction Codes Entered Date Inactivated Date Status LISINOPRIL RxNorm: 63791 02/12/2020 No Inactive Da te Active Metformin [...] F33. 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 ICD-10: Z79.4 [...] Fill Instructions pregabalin 100 mg capsule RxNorm: 596740 Take 1 Capsule(s) Oral QAM every morning 04/27/20 23 024 Inactive Levemir FlexPen 100 unit/mL (3 mL) solution subcutaneous insulin pen RxNorm: 758629 Inject 30 Unit(s) Subcutaneous BID 04/27/20 024 Inactive rosuvastatin 40 mg tablet RxNorm: 143871 Take 1 Tablet(s) Oral QPM every evening 04/16/20 024 Inactive D/C rosuvastatin 20mg venlafaxine ER 75 mg capsule,extended release 24 hr RxNorm: 000131 Take 3 Capsule(s) Oral QD 04/14/20 023 Inactive pregabalin 100 mg capsule RxNorm: 836601 Take 1 Capsule(s) Oral QAM every morning [...] meter clotrimazole 1 % topical cream RxNorm: 919809 Take apply topically to abdominal folds twice daily for 14 days 03/12/20 024 Inactive Ozempic 1 mg/dose (4 mg/3 mL) subcutaneous pen injector RxNorm: 7134782 Inject 1 Milligram(s) Subcutaneous QW once a week 03/11/20 023 Inactive rosuvastatin 20 mg tablet RxNorm: 834962 Take 1 Tablet(s) Oral QD 02/26/20 023 Inactive d/c pravastatin 80mg Ozempic 1 mg/dose (4 mg/3 mL) subcutaneous pen injector RxNorm: 3153394 Inject 1 Milligram(s) Subcutaneous QW once a week 02/20/20 23 023 Inactive pregabalin 150 mg capsule RxNorm: 135102 Take 1 Capsule(s) Oral HS at bed time 02/19/20 23 023 Inactive pregabalin 100 mg capsule RxNorm: 568634 Take 1 Capsule(s) Oral QAM every morning 02/18/20 23 023 Inactive FreeStyle Chema 2 Sensor kit RxNorm: use as directed 02/04/20 23 024 Inactive venlafaxine ER 75 mg capsule,extended release 24 hr RxNorm: 138997 Take 3 Capsule(s) Oral QD 02/04/20 23 023 Inactive FreeStyle Chema 2 Sensor kit RxNorm: use as directed 02/04/20 23 023 Inactive fluconazole 150 mg tablet RxNorm: 290013 Take 1 Tablet(s) Oral on day 3 and on day 6 02/03/20 23 024 Active chlorthalidone 25 mg tablet RxNorm: 927997 Take 1 Tablet(s) Oral QAM every morning 02/03/20 23 No Stop Date Active venlafaxine ER 150 mg capsule,extended release 24 hr RxNorm: 029025 Take 1 Capsule(s) Oral QD 02/03/20 23 023 Inactive acetaminophen 500 mg tablet RxNorm: 715831 1 TABLET ORALLY 3 TIMES DAILY (MAX APAP:4GM/24HR) 12/15/19 23 023 Inactive potassium chloride ER 20 mEq tablet,extended release RxNorm: 448491 Take 1 Tablet(s) Oral BID 12/09/19 23 024 Inactive d/c 20mEq once daily (sent from hospital) clotrimazole 1 % topical cream RxNorm: 608690 apply 1g topically to top of feet and in between toes BID 12/09/19 23 023 Inactive nystatin 100,000 unit/gram topical powder RxNorm: 768486 APPLY TO AFFECTED AREAS TOPICALLY 2 TIMES DAILY 11/21/19 23 024 Inactive Nystop 100,000 unit/gram topical powder RxNorm: 084496 Apply to abd folds, under breasts and L side of groin Topical BID x 14 days, then BID PRN 11/20/19 23 023 Inactive dx: yeast dermatitis Bengay Ultra Strength 4 %-30 %-10 % topical cream RxNorm: 640856 Apply 1 Gram(s) Topical QID PRN to feet and legs for neuropathic pain 11/11/19 23 024 Active hydrocortisone 2.5 % topical cream RxNorm: 955163 Apply 1/2 Gram(s) Topical BID as needed 11/10/19 024 Inactive clotrimazole 1 % topical cream RxNorm: 420351 Apply 1/2 Gram(s) Topical BID Apply to affected areas of groin, periarea, and abdominal topically 2 times daily 11/10/19 023 Inactive Levemir FlexPen 100 unit/mL (3 mL) solution subcutaneous insulin pen RxNorm: 964453 Inject 30 Unit(s) Subcutaneous BID 10/07/19 023 Inactive Humulin R U-500 (Concentrated) Insulin 500 unit/mL subcutaneous soln RxNorm: 315345 Inject 100 Unit(s) Subcutaneous TID 10/07/19 024 Inactive Ozempic 0.25 mg or 0.5 mg (2 mg/3 mL) subcutaneous pen injector RxNorm: 9305620 Inject 1/2 Milligram(s) Subcutaneous QW once a week 10/07/19 024 Inactive aripiprazole 15 mg tablet RxNorm: 671460 1/2 TAB (7.5MG) ORALLY DAILY (DX:MAJOR DEPRESSIVE DISORDER) 09/23/19 023 Inactive Lancets,Thin 28 gauge RxNorm: Use 1 as directed QID 09/15/19 23 024 Inactive Accu-Chek Guide test strips RxNorm: Use 1 Test Strip QID 09/15/19 23 023 Inactive ok to substitute with any covered alternative test strip torsemide 20 mg tablet RxNorm: 182188 Take 1 Tablet(s) Oral BID 09/09/19 23 024 Inactive d/c once daily dosing carvedilol 25 mg tablet RxNorm: 569521 Take 1 Tablet(s) Oral QD 08/25/19 23 024 Inactive pregabalin 150 mg capsule RxNorm: 825424 1 Capsule(s) Oral HS at bed time 08/18/19 023 Inactive pregabalin 100 mg capsule RxNorm: 841691 1 Capsule(s) Oral QAM every morning 08/18/1903/2 023 Inactive carvedilol 25 mg tablet RxNorm: 740624 1 Tablet(s) Oral QD 07/28/19 23 023 Inactive lisinopril 20 mg tablet RxNorm: 350628 Give 1 Tablet(s) Oral QD 07/28/19 23 023 Inactive Lyrica 150 mg capsule RxNorm: 648844 Take 1 Capsule(s) Oral QHS every night at bedtime 07/19/19 023 Inactive d/c 100mg dose Diflucan 150 mg tablet RxNorm: 781373 Take 1 Tablet(s) Oral QD repeat on day 3 and 6 07/19/19 23 023 Inactive pregabalin 100 mg capsule RxNorm: 668026 Take 1 Capsule(s) Oral QAM every morning 07/19/19 023 Inactive gatifloxacin 0.5 % eye drops RxNorm: 218825 Instill 1 Drop(s) as directed TID Instill 1 drop in to affected eye(s) starting 1 day prior to surgery and continue until gone (do not exceed 4 weeks). 07/13/19 23 023 Inactive carvedilol 25 mg tablet RxNorm: 302034 2 Tablet(s) Oral BID 07/13/19 023 Inactive Humulin R Regular U-100 Insulin 100 unit/mL injection solution RxNorm: 110899 85 Unit(s) Injection TID 07/13/19 23 023 Inactive ketorolac 0.5 % eye drops RxNorm: 707998 Instill 1 Drop(s) as directed QID Instill 1 drop into affected eye(s) 4 times daily starting 1 day prior to surgery and continue until gone (do not exceed 4 weeks). 07/13/19 23 023 Inactive Diflucan 150 mg tablet RxNorm: 299778 Take 1 Tablet(s) Oral QD repeat on day 3 and 6 06/30/19 23 023 Inactive Accu-Chek Guide test strips RxNorm: Use 1 Test Strip QID Use 1 test strip to monitor blood glucose 4 times daily and as needed. Dx:E11.42. 02/12/03 22 023 Inactive ok to substitute with any covered alternative test strip dextromethorphan-gu aifenesin 10 mg-100 mg/5 mL oral liquid RxNorm: 924230 Take 10 Milliliter(s) Oral every 4 hours as needed for cough 06/19/19 023 Inactive dextromethorphan-gu aifenesin 10 mg-100 mg/5 mL oral liquid RxNorm: 836724 Take 10 Milliliter(s) Oral every 4 hours as needed for cough 06/19/19 023 Inactive Lyrica 150 mg capsule RxNorm: 718256 Take 1 Capsule(s) Oral QHS every night at bedtime 06/18/19 023 Inactive d/c 100mg dose aripiprazole 15 mg tablet RxNorm: 294864 /2 TAB (7.5MG) ORALLY DAILY (DX:MAJOR DEPRESSIVE DISORDER) 06/05/19 023 Inactive pregabalin 100 mg capsule RxNorm: 311903 1 Capsule(s) Oral QAM every morning 06/02/19 023 Inactive Banophen 50 mg capsule RxNorm: 7620285 Take 1 Capsule(s) Oral Q6H every 6 hours as needed 05/19/19 23 No Stop Date Active Novolog Flexpen U-100 Insulin aspart 100 unit/mL (3 mL) subcutaneous RxNorm: 8555290 Inject 10 Unit(s) Subcutaneous QHS every night at bedtime with nighttime snack 04/08/20 022 Inactive Novolog Flexpen U-100 Insulin aspart 100 unit/mL (3 mL) subcutaneous RxNorm: 7660046 Inject 42 Unit(s) Subcutaneous TID in addition to sliding scale 04/08/20 022 Inactive d/c 36u albuterol sulfate HFA 90 mcg/actuation aerosol inhaler RxNorm: 8776356 Take 2 Puff(s) Inhalation Q4H every four hours as needed as needed for SOB, cough, or wheezing 04/07/20 030 Active Banophen 50 mg capsule RxNorm: 7124020 Take 1 Capsule(s) Oral Q6H every 6 hours as needed 04/06/20 023 Inactive diphenhydramine 50 mg tablet RxNorm: 3043267 Take 1 Tablet(s) Oral Q6H every 6 hours as needed 04/06/20 22 022 Inactive diphenhydramine 50 mg tablet RxNorm: 1468943 1 Tablet(s) Oral Q6H every 6 hours as needed 04/06/20 22 022 Inactive Abilify 15 mg tablet RxNorm: 011194 1/2 Tablet(s) Oral QD 03/10/20 023 Inactive Shingrix (PF) 50 mcg/0.5 mL intramuscular suspension, kit RxNorm: 0811072 Administer 1/2 Milliliter(s) Intramuscular QD one time shingrix step 2 ( step 1 given 11/04/21) WITH needle - Nursing please administer upon arrival and once administered post a bridge message with date of administration, patch setter, expiration date, and lot# so we can update [facility] 02/18/20 22 Inactive dispense with needle Shingrix (PF) 50 mcg/0.5 mL intramuscular suspension, kit RxNorm: 6503830 Administer 1/2 Milliliter(s) Intramuscular QD one time shingrix step 2 ( step 1 given 11/04/21) WITH needle - Nursing please administer upon arrival and once administered post a bridge message with date of administration, patch setter, expiration date, and lot# so we can update [facility] 02/18/20 22 022 Inactive dispense with needle polyethylene glycol 3350 17 gram/dose oral powder RxNorm: 088488 Take 17=1 capful Gram(s) Oral QD mix with 4-8oz of liquid 01/08/20 22 023 Inactive take this in addition to BID prn order Lyrica 100 mg capsule RxNorm: 038619 Take 1 Capsule(s) Oral QAM every morning 01/08/20 22 022 Inactive d/c 50mg dose acetaminophen 500 mg tablet RxNorm: 763667 Take 1 Tablet(s) Oral TID 01/08/20 22 022 Inactive d/c PRN order Lyrica 150 mg capsule RxNorm: 370651 Take 1 Capsule(s) Oral QHS every night at bedtime 01/08/20 22 023 Inactive d/c 100mg dose Abilify 5 mg tablet RxNorm: 906107 Take 1 Tablet(s) Oral QD take 1 tab po QD #30 refill 5 dx: MDD 12/12/19 22 022 Inactive Abilify 5 mg tablet RxNorm: 859864 Take 1 Tablet(s) Oral QD take 1 tab po QD #30 refill 5 dx: MDD 12/12/19 22 022 Inactive Novolog Flexpen U-100 Insulin aspart 100 unit/mL (3 mL) subcutaneous RxNorm: 1745314 Inject 42 Unit(s) Subcutaneous TID in addition to sliding scale 12/10/19 22 022 Inactive d/c 36u chlorthalidone 25 mg tablet RxNorm: 134234 Take 1 Tablet(s) Oral QAM every morning 12/10/19 22 023 Inactive pregabalin 50 mg capsule RxNorm: 800632 Take 1 Capsule(s) Oral QAM every morning 11/12/19 22 022 Inactive tetanus-diphtheria toxoids-Td 2 Lf unit-2 Lf unit/0.5 mL IM suspension RxNorm: 139 Take 0.5 Miscellaneous Intramuscular 11/12/19 22 022 Inactive need tdap - nursing to administer upon arrival pregabalin 50 mg capsule RxNorm: 744340 Take 1 Capsule(s) Oral QAM every morning 10/16/19 22 022 Inactive pregabalin 50 mg capsule RxNorm: 744442 Take 1 Capsule(s) Oral QAM every morning 10/16/19 22 022 Inactive pregabalin 50 mg capsule RxNorm: 953685 1 Capsule(s) Oral QAM every morning 10/15/19 22 022 Inactive Shingrix (PF) 50 mcg/0.5 mL intramuscular suspension, kit RxNorm: 1903420 Administer 1/2 Milliliter(s) Intramuscular one time Nursing please administer upon arrival and once administered post a bridge message with date of administration, patch setter, expiration date, and lot# so we can update [facility]. 10/09/19 22 022 Inactive shingrix step 1 Shingrix (PF) 50 mcg/0.5 mL intramuscular suspension, kit RxNorm: 5718155 Administer 1/2 Milliliter(s) Intramuscular one time Nursing please administer upon arrival and once administered post a bridge message with date of administration, patch setter, expiration date, and lot# so we can update [facility]. 10/09/19 22 Inactive shingrix step 1 cholecalciferol (vitamin D3) 1,250 mcg (50,000 unit) capsule RxNorm: 256574 Take 1 Capsule(s) Oral QW once a [...] aspart 100 unit/mL (3 mL) subcutaneous RxNorm: 6547916 Inject 10 Unit(s) Subcutaneous QHS every night at bedtime with nighttime snack 10/08/19 22 Inactive Shingrix (PF) 50 mcg/0.5 mL intramuscular suspension, kit RxNorm: 3929266 ADMINISTER 2-DOSE SERIES PER CDC GUIDELINES 10/08/19 22 022 Active Shingrix (PF) 50 mcg/0.5 mL intramuscular suspension, kit RxNorm: 7334532 ADMINISTER 2-DOSE SERIES PER CDC GUIDELINES 10/08/19 22 022 Inactive Novolog Flexpen U-100 Insulin aspart 100 unit/mL (3 mL) subcutaneous RxNorm: 4635500 Inject 36 Unit(s) Subcutaneous TID in addition to sliding scale 10/08/19 22 022 Inactive Novofine Autocover 30 gauge x 1/3 needle RxNorm: Use 1 Miscellaneous UD as directed Use 1 needle as directed to administer insulin 5 times a day Dx:E11.42. 05 022 Inactive ok to substitute with any covered alternative pen needle benzoyl peroxide 10 % topical cleanser RxNorm: 648050 Apply 1 Application Topical QD apply to face, wash rinse and dry once daily (may change to QOD if drying) 08/19/19 22 022 Inactive (%covered by insurance) #60ml refill 11 dx: acne benzoyl peroxide 10 % topical cleanser RxNorm: 645109 Apply 1 Application Topical QD apply to face, wash rinse and dry once daily (may change to QOD if drying) 08/19/19 022 Inactive (%covered by insurance) #60ml refill 11 dx: acne benzoyl peroxide 10 % topical cleanser RxNorm: 141650 Apply 1 Application Topical QD apply to face, wash rinse and dry once daily (may change to QOD if drying) 08/19/19 022 Inactive (%covered by insurance) #60ml refill 11 dx: acne Lyrica 50 mg capsule RxNorm: 637792 Take 1 Capsule(s) Oral QAM every morning Take 1 capsule by mouth once daily 08/19/19 022 Inactive benzoyl peroxide 10 % topical cleanser RxNorm: 051844 Apply 1 Application Topical QD apply to face, wash rinse and dry once daily (may change to QOD if drying) 08/19/19 022 Inactive (%covered by insurance) #60ml refill 11 dx: acne Lyrica 100 mg capsule RxNorm: 024988 Take 1 Capsule(s) Oral QHS every night at bedtime Take 1 capsule by mouth once daily at bedtime 08/19/19 22 022 Inactive Lyrica 100 mg capsule RxNorm: 793067 Take 1 Capsule(s) Oral QHS every night at bedtime Take 1 capsule by mouth once daily at bedtime 08/16/19 Inactive Lyrica 50 mg capsule RxNorm: 621117 Take 1 Capsule(s) Oral QAM every morning Take 1 capsule by mouth once daily 08/16/19 22 Inactive Levemir FlexTouch U-100 Insulin 100 unit/mL (3 mL) subcutaneous pen RxNorm: 231281 Inject 86 Unit(s) Subcutaneous BID 08/05/19 22 022 Inactive d/c 83units BID Lyrica 100 mg capsule RxNorm: 048445 Take 1 Capsule(s) Oral QHS every night at bedtime Take 1 capsule by mouth once daily at bedtime 07/14/19 22 022 Inactive Lyrica 50 mg capsule RxNorm: 714628 Take 1 Capsule(s) Oral QAM every morning Take 1 capsule by mouth once daily 07/14/19 22 022 Inactive Levemir FlexTouch U-100 Insulin 100 unit/mL (3 mL) subcutaneous pen RxNorm: 330269 Inject 83 Unit(s) Subcutaneous BID 07/08/19 22 [...] 30 mg tablet,extended release 24 hr RxNorm: 685598 Take 1 Tablet(s) Oral QD 05/05/20 21 024 Inactive hydralazine 50 mg tablet RxNorm: 291152 Take 1 Tablet(s) Oral QID 05/05/20 21 022 Inactive venlafaxine ER 225 mg tablet,extended release 24 hr RxNorm: 217338 Take 1 Tablet(s) Oral QD 05/05/20 021 Inactive venlafaxine ER 225 mg tablet,extended release 24 hr RxNorm: 967085 Take 1 Tablet(s) Oral QD 05/05/20 022 Inactive hydralazine 50 mg tablet RxNorm: 508378 Take 1 Tablet(s) Oral QID 05/05/20 Inactive aspirin 81 mg tablet,delayed release RxNorm: 152722 Take 1 Tablet(s) Oral QD 03/31/20 022 Inactive Zetia 10 mg tablet RxNorm: 214605 Take 1 Tablet(s) Oral QD 03/31/20 024 Inactive Vitamin D2 1,250 mcg (50,000 unit) capsule RxNorm: 3724327 Take 1 Capsule(s) Oral QW once a week x 12 weeks 03/31/20 022 Inactive Vitamin D2 1,250 mcg (50,000 unit) capsule RxNorm: 9180761 Take 1 Capsule(s) Oral QW once a week 03/31/20 021 Inactive Zetia 10 mg tablet RxNorm: 210237 Take 1 Tablet(s) Oral QD 03/31/20 021 Inactive hydralazine 25 mg tablet RxNorm: 910605 Take 1 Tablet(s) Oral QID 03/31/20 21 021 Inactive hydralazine 25 mg tablet RxNorm: 094709 Take 1 Tablet(s) Oral QID 03/31/20 021 Inactive hydralazine 10 mg tablet RxNorm: 621261 Take 1 Tablet(s) Oral QID 03/03/20 021 Inactive cephalexin 500 mg tablet RxNorm: 316291 Take 1 Tablet(s) Oral QID 02/27/20 021 Inactive cephalexin 500 mg tablet RxNorm: 754592 Take 1 Tablet(s) Oral QID 02/27/20 021 Inactive lisinopril 40 mg tablet RxNorm: 347026 Take 1 Tablet(s) Oral QD 02/11/20 023 Inactive Eliquis 5 mg tablet RxNorm: 5328637 Take 1 Tablet(s) Oral BID 01/05/20 022 Inactive Eliquis 5 mg tablet RxNorm: 0263772 Take 2 Tablet(s) Oral QD 01/01/20 21 021 Inactive Lyrica 50 mg capsule RxNorm: 171799 Take 1 Capsule(s) Oral QAM every morning 12/24/19 21 021 Inactive Lyrica 100 mg capsule RxNorm: 725010 Take 1 Capsule(s) Oral QHS every night at bedtime 12/24/19 021 Inactive clotrimazole 1 % topical cream RxNorm: 869281 Apply to right foot and toes Topical BID 12/04/19 21 023 Inactive metoprolol succinate ER 200 mg tablet,extended release 24 hr RxNorm: 901487 Take 1 Tablet(s) Oral QD 12/04/19 023 Inactive ciprofloxacin 500 mg tablet RxNorm: 458366 Take 1 Tablet(s) Oral QD 11/30/19 21 021 Inactive DX ofloxacin otic drops Accu-Chek Guide test strips RxNorm: USE 1 TO CHECK GLUCOSE 4 TIMES DAILY AND NEEDED 11/15/19 21 023 Inactive Blood Glucose Test strips RxNorm: Use 1 Test Strip QID at PRN 11/05/19 21 023 Inactive E11.42 lisinopril 30 mg tablet RxNorm: 552433 Take 1 Tablet(s) Oral QD 10/30/19 21 021 Inactive lisinopril 20 mg tablet RxNorm: 699414 Take 1 Tablet(s) Oral QD 10/23/19 21 021 Inactive lisinopril 20 mg tablet RxNorm: 954940 Take 1 Tablet(s) Oral QD 10/23/19 21 021 Inactive lisinopril 10 mg tablet RxNorm: 601504 Take 1 Tablet(s) Oral QD 10/02/19 21 021 Inactive icosapent ethyl 1 gram capsule RxNorm: 9187063 Take 2 Capsule(s) (2 gm) Oral BID with meals 09/12/19 21 024 Inactive Okay to dispense one 2gm tab if you have that available. icosapent ethyl 1 gram capsule RxNorm: 2474161 Take 2 Capsule(s) Oral BID 09/12/19 021 Inactive Okay to dispense one 2gm tab if you have that available. amlodipine 10 mg tablet RxNorm: 915815 Take 1 Tablet(s) Oral QD 09/04/19 21 022 Inactive aspirin 81 mg tablet,delayed release RxNorm: 803163 Take 1 Tablet(s) Oral QD 09/04/19 21 021 Inactive Levemir FlexTouch U-100 Insulin 100 unit/mL (3 mL) subcutaneous pen RxNorm: 904622 Inject 150 Unit(s) Subcutaneous BID 09/04/19 21 022 Inactive venlafaxine ER 150 mg tablet,extended release 24 hr RxNorm: 341177 Take 1 Tablet(s) Oral QD 09/04/19 21 021 Inactive clotrimazole-betame thasone 1 %-0.05 % topical cream RxNorm: 450659 Apply to rash on red area on left abdomen/chest Topical BID 08/10/19 21 021 Inactive amlodipine 5 mg tablet RxNorm: 763165 Take 1 Tablet(s) Oral QD 07/31/19 21 021 Inactive cephalexin 500 mg tablet RxNorm: 982203 Take 1 Tablet(s) Oral BID BID - Twice Daily 07/31/19 21 021 Inactive Start 08/01/20 pantoprazole 40 mg tablet,delayed release RxNorm: 853910 Take 1 Tablet(s) Oral QAM every morning 07/08/19 Inactive senna 8.6 mg tablet RxNorm: 889549 Take 1 Tablet(s) Oral QD 07/08/19 Inactive carbamazepine 200 mg tablet RxNorm: 491490 Take 1 Tablet(s) Oral BID 07/08/19 Inactive clopidogrel 75 mg tablet RxNorm: 336311 Take 1 Tablet(s) Oral QD 07/08/19 021 Inactive Blood Glucose Test strips RxNorm: Use 1 Test Strip QID at PRN 07/08/19 Inactive E11.42 Novolog Flexpen U-100 Insulin aspart 100 unit/mL (3 mL) subcutaneous RxNorm: 7451780 Administer per sliding scale Milliliter(s) Subcutaneous TID 151-200: 10 u; 201-250: 20 u; 251-300: 30 u; 301-350: 40 u; 351-400: 50 u. 07/08/19 Inactive lisinopril 5 mg tablet RxNorm: 368720 Take 1 Tablet(s) Oral QD 07/08/19 Inactive Novolog Flexpen U-100 Insulin aspart 100 unit/mL (3 mL) subcutaneous RxNorm: 4153739 Inject 85 Unit(s) Subcutaneous TID 07/08/19 Inactive pravastatin 80 mg tablet RxNorm: 226123 Take 1 Tablet(s) Oral QHS every night at bedtime 07/08/19 023 Inactive clotrimazole 1 % topical cream RxNorm: 868118 Apply to bilateral groin areas Topical BID 07/08/19 022 Inactive metoprolol succinate ER 200 mg tablet,extended release 24 hr RxNorm: 409961 Take 1 Tablet(s) Oral QD 07/08/19 021 Inactive Vitamin D3 25 mcg (1,000 unit) tablet RxNorm: 109998 Take 1 Tablet(s) Oral QD 07/08/19 021 Inactive isosorbide dinitrate 30 mg tablet RxNorm: 812114 Take 1 Tablet(s) Oral QD 07/08/19 21 021 Inactive Levemir FlexTouch U-100 Insulin 100 unit/mL (3 mL) subcutaneous pen RxNorm: 603376 Inject 140 Unit(s) Subcutaneous BID 07/08/19 21 021 Inactive torsemide 20 mg tablet RxNorm: 143881 Take 1 Tablet(s) Oral QD 07/08/19 21 023 Inactive venlafaxine 75 mg tablet RxNorm: 270446 Take 1 Tablet(s) Oral QD 07/08/19 021 Inactive acetaminophen 500 mg tablet RxNorm: 214061 Take 1 Tablet(s) Oral TID as needed for headache 06/18/19 Inactive acetaminophen 500 mg tablet RxNorm: 771647 Take 1 Tablet(s) Oral TID as needed for headache 06/18/19 21 021 Inactive Lyrica 100 mg capsule RxNorm: 823186 Take 1 Capsule(s) Oral QHS every night at bedtime 06/11/19 021 Inactive Lyrica 50 mg capsule RxNorm: 427963 Take 1 Capsule(s) Oral QAM every morning 06/10/19 21 021 Inactive hydrocortisone 2.5 % topical cream RxNorm: 796613 Apply to bilateral groin creases Topical BID 05/15/20 20 021 Inactive clotrimazole 1 % topical cream RxNorm: 575626 Apply to bilateral groin areas Topical BID 05/15/20 20 021 Inactive Lyrica 50 mg capsule RxNorm: 041724 Take 1 Capsule(s) Oral QAM every morning 05/14/20 20 020 Inactive Lyrica 100 mg capsule RxNorm: 945260 Take 1 Capsule(s) Oral QHS every night [...] Inactive Nystop 100,000 unit/gram topical powder RxNorm: 737287 Apply to abd folds, under breasts and L side of groin Topical BID x 14 days, then BID PRN 04/08/20 20 Inactive dx: yeast dermatitis Lyrica 100 mg capsule RxNorm: 076116 Take 1 Capsule(s) Oral QHS every night at bedtime 03/13/20 20 Inactive Lyrica 50 mg capsule RxNorm: 286266 Take 1 Capsule(s) Oral QAM every morning 03/13/20 20 Inactive ketoconazole 2 % shampoo RxNorm: 192705 Apply Topical two times a week with showers 03/11/20 20 Inactive cholecalciferol (vitamin D3) 50 mcg (2,000 unit) tablet RxNorm: 456140 Take 1 Tablet(s) Oral QD 03/11/20 20 021 Inactive Zetia 10 mg tablet RxNorm: 733455 Take 1 Tablet(s) Oral QD 03/07/20 20 021 Inactive Zetia 10 mg tablet RxNorm: 648038 Take 1 Tablet(s) Oral QD 03/07/20 20 Inactive Lyrica 50 mg capsule RxNorm: 033646 Take 1 Capsule(s) Oral QAM every morning 02/15/20 20 Inactive Lyrica 100 mg capsule RxNorm: 871299 Take 1 Capsule(s) Oral QHS every night at bedtime 02/15/20 20 Inactive Lyrica 100 mg capsule RxNorm: 411379 Take 1 Capsule(s) Oral QHS every night at bedtime 02/15/20 20 020 Inactive Lyrica 50 mg capsule RxNorm: 861667 Take 1 Capsule(s) Oral QAM every morning 02/15/20 20 020 Inactive polyethylene glycol 3350 17 gram/dose oral powder RxNorm: 512084 Take 17=1 capful Gram(s) Oral BID as needed mix with 4-8oz of liquid 06/12/19 22 024 Inactive metoprolol succinate ER 200 mg tablet,extended release 24 hr RxNorm: 875665 Take 1 Tablet(s) Oral QD 08/12/19 23 Active loperamide 2 mg capsule RxNorm: 411438 Take 1 Capsule(s) Oral QID as needed 06/12/19 22 Active hydralazine 50 mg tablet RxNorm: 848378 Take 1 Tablet(s) Oral QID 08/12/19 23 Active venlafaxine ER 75 mg capsule,extended release 24 hr RxNorm: 076851 Take 3 Capsule(s) Oral QD 06/12/19 22 023 Inactive icosapent ethyl 1 gram capsule RxNorm: 6792871 Take 2 Capsule(s) (2 gm) Oral BID with meals 10/07/19 23 023 Inactive Okay to dispense one 2gm tab if you have that available. Levemir FlexTouch U-100 Insulin 100 unit/mL (3 mL) subcutaneous pen RxNorm: 791479 Inject 80 Unit(s) Subcutaneous BID 07/14/19 23 023 Inactive Novolog Flexpen U-100 Insulin aspart 100 unit/mL (3 mL) subcutaneous RxNorm: 0904737 Insert 30 Unit(s) Subcutaneous TID with meals 10/08/19 22 022 Inactive Medication Administered No Medication Administered data Reason For Visit No Reason For Visit data Plan of Care Planned Activity Notes Codes Status Date Referral: [facility] WPtel: [address], [address] [id number] Referral Records Received 09/21/2022 Referral: [facility] WPtel: [address] [id number] [place] Referral Completed 05/28/2021 Referral: General Cardiology [...] Sister Jyotsna involved in his care cell# [phone] Guardian: Don (tapan met in person 09/01/21), now has Lexii (same group as don)Lab Schedule: /September*September (CBC with diff, CMP, A1c) (Novemebr: CBC, CMP, A1c, Lipids, VitD) 10/08/2023
--- OUTSIDE RECORDS SUMMARY | 2023-05-05 19:00 | XMS_ITS | CCD ---
Author Name Marian VELASCO Chelo Address [address] [facility] [address] [place] [address] Phone Organization [facility] Phone Care Team Providers Care Policy Analyst Name Role Phone Arpit [facility] Primary Care Provider Leona vailable Arpit [facility] Chronic Care Management U navailable Summary Purpose DataExchange Insurance Providers Payer name Policy type / Coverage type Covered green party ID Effective Begin Date Effective End Date [place] Part B [id number] Unknown Unknown Medicaid [place] Medicare Part B [id number] Unknown Unknown Family history Sister Brittany Suggs [...] Retirement 09/03/[address]: 0915597 Non-Smoker / No History of Smoking 09/02/[address]: 170634504 No Alcohol Consum ption 09/02/2020 Allergies, Adverse Reactions, Alerts Substance Reaction Codes Entered Date Inactivated Date Status LISINOPRIL RxNorm: 69938 02/12/2020 No Inactive Da te Active Metformin HCl Unknown 02/12/2020 No Inactive Cristiano e Active Problems Condition Codes Effective Dates Condition St atus Hypertensive heart disease w ithout heart failure ICD-10: I11.9 ICD-9: 402.90 05/04/2023 Active Type 2 diabetes mellitus wit h diabetic polyneuropathy, with long-term current use of insulin ICD-10: E11.42 ICD-9: 250.60 05/04/2023 Active Coronary artery disease invo lving [place] coronary artery of [place] heart, angina presence unspecified ICD-10: I25.10 ICD-9: 414.01 04/14/2023 Active Onychogryposis ICD-10: L60.2 ICD-9: 703.8 04/14/2023 Active Reducible umbilical hernia ICD-10: K42.9 ICD-9: 553.1 04/14/2023 Active BMI 60.0-69.9, adult ICD-10: Z68.44 [...] F33. 9 ICD-9: 296.30 03/03/2023 Active Other detention (current) dr ug therapy ICD-10: Z79.899 ICD-9: V58.69 03/03/2023 Active Recurrent major depressive disorder, in partial remission ICD-10: F33.41 ICD-9: 296.35 03/03/2023 Active Annual physical exam ICD-10: Z00.00 ICD-9: V70.0 02/02/2023 Active Encounter for other specifie d special examinations ICD-10: Z01.89 ICD-9: V72.85 02/02/2023 Active Encounter for screening for nutritional disorder ICD-10: Z13.21 ICD-9: V77.99 02/02/2023 Active Hypokalemia ICD-10: E87.6 ICD-9: 276.8 12/08/2022 [...] immunization ICD-10: Z23 ICD-9: V03.89 02/10/2022 Resolved [facility] (current) use of insulin ICD-10: Z79.4 02/10 [...] Fill Instructions pregabalin 100 mg capsule RxNorm: 542784 Take 1 Capsule(s) Oral QAM every morning 04/27/20 23 024 Inactive Levemir FlexPen 100 unit/mL (3 mL) solution subcutaneous insulin pen RxNorm: 010720 Inject 30 Unit(s) Subcutaneous BID 04/27/20 23 024 Inactive rosuvastatin 40 mg tablet RxNorm: 046058 Take 1 Tablet(s) Oral QPM every evening 04/16/20 024 Inactive D/C rosuvastatin 20mg venlafaxine ER 75 mg capsule,extended release 24 hr RxNorm: 896571 Take 3 Capsule(s) Oral QD 04/14/20 023 Inactive pregabalin 100 mg capsule RxNorm: 796503 Take 1 Capsule(s) Oral QAM every morning [...] meter clotrimazole 1 % topical cream RxNorm: 311809 Take apply topically to abdominal folds twice daily for 14 days 03/12/20 024 Inactive Ozempic 1 mg/dose (4 mg/3 mL) subcutaneous pen injector RxNorm: 4022844 Inject 1 Milligram(s) Subcutaneous QW once a week 03/11/20 23 023 Inactive rosuvastatin 20 mg tablet RxNorm: 853146 Take 1 Tablet(s) Oral QD 02/26/20 023 Inactive d/c pravastatin 80mg Ozempic 1 mg/dose (4 mg/3 mL) subcutaneous pen injector RxNorm: 6722351 Inject 1 Milligram(s) Subcutaneous QW once a week 02/20/20 23 023 Inactive pregabalin 150 mg capsule RxNorm: 392763 Take 1 Capsule(s) Oral HS at bed time 02/19/20 23 023 Inactive pregabalin 100 mg capsule RxNorm: 334666 Take 1 Capsule(s) Oral QAM every morning 02/18/20 23 023 Inactive FreeStyle Chema 2 Sensor kit RxNorm: use as directed 02/04/20 23 024 Inactive venlafaxine ER 75 mg capsule,extended release 24 hr RxNorm: 142516 Take 3 Capsule(s) Oral QD 02/04/20 23 023 Inactive FreeStyle Chema 2 Sensor kit RxNorm: use as directed 02/04/20 23 023 Inactive fluconazole 150 mg tablet RxNorm: 037121 Take 1 Tablet(s) Oral on day 3 and on day 6 02/03/20 23 024 Active chlorthalidone 25 mg tablet RxNorm: 753350 Take 1 Tablet(s) Oral QAM every morning 02/03/20 23 No Stop Date Active venlafaxine ER 150 mg capsule,extended release 24 hr RxNorm: 249966 Take 1 Capsule(s) Oral QD 02/03/20 23 023 Inactive acetaminophen 500 mg tablet RxNorm: 202684 1 TABLET ORALLY 3 TIMES DAILY (MAX APAP:4GM/24HR) 12/15/19 23 023 Inactive potassium chloride ER 20 mEq tablet,extended release RxNorm: 896437 Take 1 Tablet(s) Oral BID 12/09/19 23 024 Inactive d/c 20mEq once daily (sent from hospital) clotrimazole 1 % topical cream RxNorm: 515885 apply 1g topically to top of feet and in between toes BID 12/09/19 23 023 Inactive nystatin 100,000 unit/gram topical powder RxNorm: 581912 APPLY TO AFFECTED AREAS TOPICALLY 2 TIMES DAILY 11/21/19 23 024 Inactive Nystop 100,000 unit/gram topical powder RxNorm: 122927 Apply to abd folds, under breasts and L side of groin Topical BID x 14 days, then BID PRN 11/20/19 23 023 Inactive dx: yeast dermatitis [place] Ultra Strength 4 %-30 %-10 % topical cream RxNorm: 473771 Apply 1 Gram(s) Topical QID PRN to feet and legs for neuropathic pain 11/11/19 024 Active hydrocortisone 2.5 % topical cream RxNorm: 274449 Apply 1/2 Gram(s) Topical BID as needed 11/10/19 23 024 Inactive clotrimazole 1 % topical cream RxNorm: 934392 Apply 1/2 Gram(s) Topical BID Apply to affected areas of groin, periarea, and abdominal topically 2 times daily 11/10/19 23 023 Inactive Humulin R U-500 (Concentrated) Insulin 500 unit/mL subcutaneous soln RxNorm: 261599 Inject 100 Unit(s) Subcutaneous TID 10/07/19 024 Inactive Ozempic 0.25 mg or 0.5 mg (2 mg/3 mL) subcutaneous pen injector RxNorm: 7753231 Inject 1/2 Milligram(s) Subcutaneous QW once a week 10/07/19 024 Inactive Levemir FlexPen 100 unit/mL (3 mL) solution subcutaneous insulin pen RxNorm: 753381 Inject 30 Unit(s) Subcutaneous BID 10/07/19 023 Inactive aripiprazole 15 mg tablet RxNorm: 543635 1/2 TAB (7.5MG) ORALLY DAILY (DX:MAJOR DEPRESSIVE DISORDER) 09/23/19 023 Inactive Lancets,Thin 28 gauge RxNorm: Use 1 as directed QID 09/15/19 23 024 Inactive Accu-Chek Guide test strips RxNorm: Use 1 Test Strip QID 09/15/19 23 023 Inactive ok to substitute with any covered alternative test strip torsemide 20 mg tablet RxNorm: 828818 Take 1 Tablet(s) Oral BID 09/09/19 23 024 Inactive d/c once daily dosing carvedilol 25 mg tablet RxNorm: 566180 Take 1 Tablet(s) Oral QD 08/25/19 23 024 Inactive pregabalin 150 mg capsule RxNorm: 414195 1 Capsule(s) Oral HS at bed time 08/18/19 23 023 Inactive pregabalin 100 mg capsule RxNorm: 543259 1 Capsule(s) Oral QAM every morning 08/18/19 23 023 Inactive carvedilol 25 mg tablet RxNorm: 271758 1 Tablet(s) Oral QD 07/28/19 23 023 Inactive lisinopril 20 mg tablet RxNorm: 846274 Give 1 Tablet(s) Oral QD 07/28/19 23 023 Inactive Lyrica 150 mg capsule RxNorm: 038699 Take 1 Capsule(s) Oral QHS every night at bedtime 07/19/19 023 Inactive d/c 100mg dose Diflucan 150 mg tablet RxNorm: 037983 Take 1 Tablet(s) Oral QD repeat on day 3 and 6 07/19/19 23 023 Inactive pregabalin 100 mg capsule RxNorm: 683640 Take 1 Capsule(s) Oral QAM every morning 07/19/19 023 Inactive gatifloxacin 0.5 % eye drops RxNorm: 695082 Instill 1 Drop(s) as directed TID Instill 1 drop in to affected eye(s) starting 1 day prior to surgery and continue until gone (do not exceed 4 weeks). 07/13/19 23 023 Inactive carvedilol 25 mg tablet RxNorm: 322991 2 Tablet(s) Oral BID 07/13/19 23 023 Inactive Humulin R Regular U-100 Insulin 100 unit/mL injection solution RxNorm: 903381 85 Unit(s) Injection TID 07/13/19 23 023 Inactive ketorolac 0.5 % eye drops RxNorm: 171999 Instill 1 Drop(s) as directed QID Instill 1 drop into affected eye(s) 4 times daily starting 1 day prior to surgery and continue until gone (do not exceed 4 weeks). 07/13/19 23 023 Inactive Diflucan 150 mg tablet RxNorm: 081444 Take 1 Tablet(s) Oral QD repeat on day 3 and 6 06/30/19 023 Inactive Accu-Chek Guide test strips RxNorm: Use 1 Test Strip QID Use 1 test strip to monitor blood glucose 4 times daily and as needed. Dx:E11.42. 06/23/19 023 Inactive ok to substitute with any covered alternative test strip dextromethorphan-gu aifenesin 10 mg-100 mg/5 mL oral liquid RxNorm: 211167 Take 10 Milliliter(s) Oral every 4 hours as needed for cough 06/19/19 023 Inactive dextromethorphan-gu aifenesin 10 mg-100 mg/5 mL oral liquid RxNorm: 043120 Take 10 Milliliter(s) Oral every 4 hours as needed for cough 06/19/19 023 Inactive Lyrica 150 mg capsule RxNorm: 736269 Take 1 Capsule(s) Oral QHS every night at bedtime 06/18/19 023 Inactive d/c 100mg dose aripiprazole 15 mg tablet RxNorm: 078136 1/2 TAB (7.5MG) ORALLY DAILY (DX:MAJOR DEPRESSIVE DISORDER) 06/05/19 023 Inactive pregabalin 100 mg capsule RxNorm: 120053 1 Capsule(s) Oral QAM every morning 06/02/19 023 Inactive Banophen 50 mg capsule RxNorm: 3250493 Take 1 Capsule(s) Oral Q6H every 6 hours as needed 05/19/19 23 No Stop Date Active Novolog Flexpen U-100 Insulin aspart 100 unit/mL (3 mL) subcutaneous RxNorm: 1074117 Inject 10 Unit(s) Subcutaneous QHS every night at bedtime with nighttime snack 04/08/20 022 Inactive Novolog Flexpen U-100 Insulin aspart 100 unit/mL (3 mL) subcutaneous RxNorm: 3535753 Inject 42 Unit(s) Subcutaneous TID in addition to sliding scale 04/08/20 022 Inactive d/c 36u albuterol sulfate HFA 90 mcg/actuation aerosol inhaler RxNorm: 6507094 Take 2 Puff(s) Inhalation Q4H every four hours as needed as needed for SOB, cough, or wheezing 04/07/2004/24/2 030 Active Banophen 50 mg capsule RxNorm: 7624620 Take 1 Capsule(s) Oral Q6H every 6 hours as needed 04/06/20 023 Inactive diphenhydramine 50 mg tablet RxNorm: 2563052 Take 1 Tablet(s) Oral Q6H every 6 hours as needed 04/06/20 22 022 Inactive diphenhydramine 50 mg tablet RxNorm: 3671445 1 Tablet(s) Oral Q6H every 6 hours as needed 04/06/20 22 022 Inactive Abilify 15 mg tablet RxNorm: 613074 1/2 Tablet(s) Oral QD 03/10/20 023 Inactive Shingrix (PF) 50 mcg/0.5 mL intramuscular suspension, kit RxNorm: 4013610 Administer 1/2 Milliliter(s) Intramuscular QD one time shingrix step 2 ( step 1 given 11/04/21) WITH needle - Nursing please administer upon arrival and once administered post a bridge message with date of administration, physical science technician, expiration date, and lot# so we can update MIIC 02/18/20 22 022 Inactive dispense with needle Shingrix (PF) 50 mcg/0.5 mL intramuscular suspension, kit RxNorm: 3980167 Administer 1/2 Milliliter(s) Intramuscular QD one time shingrix step 2 ( step 1 given 11/04/21) WITH needle - Nursing please administer upon arrival and once administered post a bridge message with date of administration, physical science technician, expiration date, and lot# so we can update NDIC 02/18/20 22 022 Inactive dispense with needle polyethylene glycol 3350 17 gram/dose oral powder RxNorm: 910900 Take 17=1 capful Gram(s) Oral QD mix with 4-8oz of liquid 01/08/20 22 023 Inactive take this in addition to BID prn order Lyrica 100 mg capsule RxNorm: 744460 Take 1 Capsule(s) Oral QAM every morning 01/08/20 22 022 Inactive d/c 50mg dose acetaminophen 500 mg tablet RxNorm: 104813 Take 1 Tablet(s) Oral TID 01/08/20 22 022 Inactive d/c PRN order Lyrica 150 mg capsule RxNorm: 571014 Take 1 Capsule(s) Oral QHS every night at bedtime 01/08/20 22 023 Inactive d/c 100mg dose Abilify 5 mg tablet RxNorm: 367551 Take 1 Tablet(s) Oral QD take 1 tab po QD #30 refill 5 dx: MDD 12/12/19 22 022 Inactive Abilify 5 mg tablet RxNorm: 217377 Take 1 Tablet(s) Oral QD take 1 tab po QD #30 refill 5 dx: MDD 12/12/19 22 022 Inactive Novolog Flexpen U-100 Insulin aspart 100 unit/mL (3 mL) subcutaneous RxNorm: 8776149 Inject 42 Unit(s) Subcutaneous TID in addition to sliding scale 12/10/19 22 Inactive d/c 36u chlorthalidone 25 mg tablet RxNorm: 493463 Take 1 Tablet(s) Oral QAM every morning 12/10/19 22 023 Inactive pregabalin 50 mg capsule RxNorm: 029428 Take 1 Capsule(s) Oral QAM every morning 11/12/19 22 022 Inactive tetanus-diphtheria toxoids-Td 2 Lf unit-2 Lf unit/0.5 mL IM suspension RxNorm: 139 Take 0.5 Miscellaneous Intramuscular 11/12/19 22 022 Inactive need tdap - nursing to administer upon arrival pregabalin 50 mg capsule RxNorm: 239461 Take 1 Capsule(s) Oral QAM every morning 10/16/19 22 022 Inactive pregabalin 50 mg capsule RxNorm: 482367 Take 1 Capsule(s) Oral QAM every morning 10/16/19 22 022 Inactive pregabalin 50 mg capsule RxNorm: 146852 1 Capsule(s) Oral QAM every morning 10/15/19 22 022 Inactive Shingrix (PF) 50 mcg/0.5 mL intramuscular suspension, kit RxNorm: 7186965 Administer 1/2 Milliliter(s) Intramuscular one time Nursing please administer upon arrival and once administered post a bridge message with date of administration, physical science 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 10/09/19 22 022 Inactive shingrix step 1 Shingrix (PF) 50 mcg/0.5 mL intramuscular suspension, kit RxNorm: 7263808 Administer 1/2 Milliliter(s) Intramuscular one time Nursing please administer upon arrival and once administered post a bridge message with date of administration, physical science 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 10/09/19 22 022 Inactive shingrix step 1 cholecalciferol (vitamin D3) 1,250 mcg (50,000 unit) capsule RxNorm: 103292 Take 1 Capsule(s) Oral QW once a [...] aspart 100 unit/mL (3 mL) subcutaneous RxNorm: 9339896 Inject 10 Unit(s) Subcutaneous QHS every night at bedtime with nighttime snack 10/08/19 22 Inactive Shingrix (PF) 50 mcg/0.5 mL intramuscular suspension, kit RxNorm: 4279357 ADMINISTER 2-DOSE SERIES PER CDC GUIDELINES 10/08/19 22 Active Shingrix (PF) 50 mcg/0.5 mL intramuscular suspension, kit RxNorm: 6287147 ADMINISTER 2-DOSE SERIES PER CDC GUIDELINES 10/08/19 22 Inactive Novolog Flexpen U-100 Insulin aspart 100 unit/mL (3 mL) subcutaneous RxNorm: 1414779 Inject 36 Unit(s) Subcutaneous TID in addition to sliding scale 10/08/19 22 07/25/2 022 Inactive Novofine Autocover 30 gauge x 1/3 needle RxNorm: Use 1 Miscellaneous UD as directed Use 1 needle as directed to administer insulin 5 times a day Dx:E11.42. 10/03/19 Inactive ok to substitute with any covered alternative pen needle benzoyl peroxide 10 % topical cleanser RxNorm: 759435 Apply 1 Application Topical QD apply to face, wash rinse and dry once daily (may change to QOD if drying) 08/19/19 022 Inactive (%covered by insurance) #60ml refill 11 dx: acne benzoyl peroxide 10 % topical cleanser RxNorm: 866735 Apply 1 Application Topical QD apply to face, wash rinse and dry once daily (may change to QOD if drying) 08/19/19 022 Inactive (%covered by insurance) #60ml refill 11 dx: acne benzoyl peroxide 10 % topical cleanser RxNorm: 961597 Apply 1 Application Topical QD apply to face, wash rinse and dry once daily (may change to QOD if drying) 08/19/19 022 Inactive (%covered by insurance) #60ml refill 11 dx: acne Lyrica 50 mg capsule RxNorm: 960291 Take 1 Capsule(s) Oral QAM every morning Take 1 capsule by mouth once daily 08/19/19 022 Inactive benzoyl peroxide 10 % topical cleanser RxNorm: 413538 Apply 1 Application Topical QD apply to face, wash rinse and dry once daily (may change to QOD if drying) 08/19/19 022 Inactive (%covered by insurance) #60ml refill 11 dx: acne Lyrica 100 mg capsule RxNorm: 437696 Take 1 Capsule(s) Oral QHS every night at bedtime Take 1 capsule by mouth once daily at bedtime 08/19/19 Inactive Lyrica 100 mg capsule RxNorm: 486134 Take 1 Capsule(s) Oral QHS every night at bedtime Take 1 capsule by mouth once daily at bedtime 08/16/19 22 Inactive Lyrica 50 mg capsule RxNorm: 921143 Take 1 Capsule(s) Oral QAM every morning Take 1 capsule by mouth once daily 08/16/19 22 022 Inactive Levemir FlexTouch U-100 Insulin 100 unit/mL (3 mL) subcutaneous pen RxNorm: 232378 Inject 86 Unit(s) Subcutaneous BID 08/05/19 22 022 Inactive d/c 83units BID Lyrica 100 mg capsule RxNorm: 080443 Take 1 Capsule(s) Oral QHS every night at bedtime Take 1 capsule by mouth once daily at bedtime 07/14/19 22 022 Inactive Lyrica 50 mg capsule RxNorm: 889258 Take 1 Capsule(s) Oral QAM every morning Take 1 capsule by mouth once daily 07/14/19 22 022 Inactive Levemir FlexTouch U-100 Insulin 100 unit/mL (3 mL) subcutaneous pen RxNorm: 562146 Inject 83 Unit(s) Subcutaneous BID 07/08/19 22 [...] 30 mg tablet,extended release 24 hr RxNorm: 672281 Take 1 Tablet(s) Oral QD 05/05/20 21 024 Inactive hydralazine 50 mg tablet RxNorm: 329323 Take 1 Tablet(s) Oral QID 05/05/20 022 Inactive venlafaxine ER 225 mg tablet,extended release 24 hr RxNorm: 982872 Take 1 Tablet(s) Oral QD 05/05/20 021 Inactive venlafaxine ER 225 mg tablet,extended release 24 hr RxNorm: 770975 Take 1 Tablet(s) Oral QD 05/05/20 022 Inactive hydralazine 50 mg tablet RxNorm: 638153 Take 1 Tablet(s) Oral QID 05/05/20 Inactive aspirin 81 mg tablet,delayed release RxNorm: 519999 Take 1 Tablet(s) Oral QD 03/31/20 022 Inactive Zetia 10 mg tablet RxNorm: 564799 Take 1 Tablet(s) Oral QD 03/31/20 024 Inactive Vitamin D2 1,250 mcg (50,000 unit) capsule RxNorm: 4339448 Take 1 Capsule(s) Oral QW once a week x 12 weeks 03/31/20 022 Inactive Vitamin D2 1,250 mcg (50,000 unit) capsule RxNorm: 7380221 Take 1 Capsule(s) Oral QW once a week 03/31/20 021 Inactive Zetia 10 mg tablet RxNorm: 820339 Take 1 Tablet(s) Oral QD 03/31/20 021 Inactive hydralazine 25 mg tablet RxNorm: 353111 Take 1 Tablet(s) Oral QID 03/31/20 021 Inactive hydralazine 25 mg tablet RxNorm: 642683 Take 1 Tablet(s) Oral QID 03/31/20 021 Inactive hydralazine 10 mg tablet RxNorm: 709602 Take 1 Tablet(s) Oral QID 03/03/20 021 Inactive cephalexin 500 mg tablet RxNorm: 490113 Take 1 Tablet(s) Oral QID 02/27/20 021 Inactive cephalexin 500 mg tablet RxNorm: 889979 Take 1 Tablet(s) Oral QID 02/27/20 021 Inactive lisinopril 40 mg tablet RxNorm: 111755 Take 1 Tablet(s) Oral QD 02/11/20 023 Inactive Eliquis 5 mg tablet RxNorm: 7639094 Take 1 Tablet(s) Oral BID 01/05/20 022 Inactive Eliquis 5 mg tablet RxNorm: 9739723 Take 2 Tablet(s) Oral QD 01/01/20 021 Inactive Lyrica 50 mg capsule RxNorm: 405787 Take 1 Capsule(s) Oral QAM every morning 12/24/19 021 Inactive Lyrica 100 mg capsule RxNorm: 606597 Take 1 Capsule(s) Oral QHS every night at bedtime 12/24/19 021 Inactive clotrimazole 1 % topical cream RxNorm: 433308 Apply to right foot and toes Topical BID 12/04/19 21 023 Inactive metoprolol succinate ER 200 mg tablet,extended release 24 hr RxNorm: 224629 Take 1 Tablet(s) Oral QD 12/04/19 21 023 Inactive ciprofloxacin 500 mg tablet RxNorm: 297783 Take 1 Tablet(s) Oral QD 11/30/19 21 021 Inactive DX ofloxacin otic drops Accu-Chek Guide test strips RxNorm: USE 1 TO CHECK GLUCOSE 4 TIMES DAILY AND NEEDED 11/15/19 21 023 Inactive Blood Glucose Test strips RxNorm: Use 1 Test Strip QID at PRN 11/05/19 21 023 Inactive E11.42 lisinopril 30 mg tablet RxNorm: 238350 Take 1 Tablet(s) Oral QD 10/30/19 21 021 Inactive lisinopril 20 mg tablet RxNorm: 588291 Take 1 Tablet(s) Oral QD 10/23/19 21 021 Inactive lisinopril 20 mg tablet RxNorm: 187906 Take 1 Tablet(s) Oral QD 10/23/19 21 021 Inactive lisinopril 10 mg tablet RxNorm: 110380 Take 1 Tablet(s) Oral QD 10/02/19 21 021 Inactive icosapent ethyl 1 gram capsule RxNorm: 3289715 Take 2 Capsule(s) (2 gm) Oral BID with meals 09/12/19 024 Inactive Okay to dispense one 2gm tab if you have that available. icosapent ethyl 1 gram capsule RxNorm: 9868341 Take 2 Capsule(s) Oral BID 09/12/19 21 021 Inactive Okay to dispense one 2gm tab if you have that available. amlodipine 10 mg tablet RxNorm: 433780 Take 1 Tablet(s) Oral QD 09/04/19 21 022 Inactive aspirin 81 mg tablet,delayed release RxNorm: 511661 Take 1 Tablet(s) Oral QD 09/04/19 21 021 Inactive Levemir FlexTouch U-100 Insulin 100 unit/mL (3 mL) subcutaneous pen RxNorm: 737759 Inject 150 Unit(s) Subcutaneous BID 09/04/19 21 022 Inactive venlafaxine ER 150 mg tablet,extended release 24 hr RxNorm: 972161 Take 1 Tablet(s) Oral QD 09/04/19 21 021 Inactive clotrimazole-betame thasone 1 %-0.05 % topical cream RxNorm: 262664 Apply to rash on red area on left abdomen/chest Topical BID 08/10/19 21 021 Inactive amlodipine 5 mg tablet RxNorm: 218199 Take 1 Tablet(s) Oral QD 07/31/19 21 Inactive cephalexin 500 mg tablet RxNorm: 725826 Take 1 Tablet(s) Oral BID BID - Twice Daily 07/31/19 21 Inactive Start 08/01/20 pantoprazole 40 mg tablet,delayed release RxNorm: 225506 Take 1 Tablet(s) Oral QAM every morning 07/08/19 022 Inactive senna 8.6 mg tablet RxNorm: 374451 Take 1 Tablet(s) Oral QD 07/08/19 022 Inactive carbamazepine 200 mg tablet RxNorm: 503143 Take 1 Tablet(s) Oral BID 07/08/19 Inactive clopidogrel 75 mg tablet RxNorm: 482277 Take 1 Tablet(s) Oral QD 07/08/19 021 Inactive Blood Glucose Test strips RxNorm: Use 1 Test Strip QID at PRN 07/08/19 Inactive E11.42 Novolog Flexpen U-100 Insulin aspart 100 unit/mL (3 mL) subcutaneous RxNorm: 5718706 Administer per sliding scale Milliliter(s) Subcutaneous TID 151-200: 10 u; 201-250: 20 u; 251-300: 30 u; 301-350: 40 u; 351-400: 50 u. 07/08/19 022 Inactive lisinopril 5 mg tablet RxNorm: 053086 Take 1 Tablet(s) Oral QD 07/08/19 Inactive Novolog Flexpen U-100 Insulin aspart 100 unit/mL (3 mL) subcutaneous RxNorm: 0637798 Inject 85 Unit(s) Subcutaneous TID 07/08/19 022 Inactive pravastatin 80 mg tablet RxNorm: 532028 Take 1 Tablet(s) Oral QHS every night at bedtime 07/08/19 023 Inactive clotrimazole 1 % topical cream RxNorm: 468793 Apply to bilateral groin areas Topical BID 07/08/19 022 Inactive metoprolol succinate ER 200 mg tablet,extended release 24 hr RxNorm: 469357 Take 1 Tablet(s) Oral QD 07/08/19 021 Inactive Vitamin D3 25 mcg (1,000 unit) tablet RxNorm: 760336 Take 1 Tablet(s) Oral QD 07/08/19 021 Inactive isosorbide dinitrate 30 mg tablet RxNorm: 617007 Take 1 Tablet(s) Oral QD 07/08/19 021 Inactive Levemir FlexTouch U-100 Insulin 100 unit/mL (3 mL) subcutaneous pen RxNorm: 174953 Inject 140 Unit(s) Subcutaneous BID 07/08/19 021 Inactive torsemide 20 mg tablet RxNorm: 140321 Take 1 Tablet(s) Oral QD 07/08/19 21 023 Inactive venlafaxine 75 mg tablet RxNorm: 928419 Take 1 Tablet(s) Oral QD 07/08/19 021 Inactive acetaminophen 500 mg tablet RxNorm: 858424 Take 1 Tablet(s) Oral TID as needed for headache 06/18/19 021 Inactive acetaminophen 500 mg tablet RxNorm: 456237 Take 1 Tablet(s) Oral TID as needed for headache 06/18/19 021 Inactive Lyrica 100 mg capsule RxNorm: 538659 Take 1 Capsule(s) Oral QHS every night at bedtime 06/11/19 021 Inactive Lyrica 50 mg capsule RxNorm: 985693 Take 1 Capsule(s) Oral QAM every morning 06/10/19 021 Inactive hydrocortisone 2.5 % topical cream RxNorm: 222983 Apply to bilateral groin creases Topical BID 05/15/20 20 021 Inactive clotrimazole 1 % topical cream RxNorm: 474069 Apply to bilateral groin areas Topical BID 05/15/20 20 021 Inactive Lyrica 50 mg capsule RxNorm: 185979 Take 1 Capsule(s) Oral QAM every morning 05/14/20 20 Inactive Lyrica 100 mg capsule RxNorm: 327568 Take 1 Capsule(s) Oral QHS every night [...] Inactive Nystop 100,000 unit/gram topical powder RxNorm: 623981 Apply to abd folds, under breasts and L side of groin Topical BID x 14 days, then BID PRN 04/08/20 20 Inactive dx: yeast dermatitis Lyrica 100 mg capsule RxNorm: 571556 Take 1 Capsule(s) Oral QHS every night at bedtime 03/13/20 20 Inactive Lyrica 50 mg capsule RxNorm: 375982 Take 1 Capsule(s) Oral QAM every morning 03/13/20 20 Inactive ketoconazole 2 % shampoo RxNorm: 771852 Apply Topical two times a week with showers 03/11/20 20 024 Inactive cholecalciferol (vitamin D3) 50 mcg (2,000 unit) tablet RxNorm: 136307 Take 1 Tablet(s) Oral QD 03/11/20 20 021 Inactive Zetia 10 mg tablet RxNorm: 751767 Take 1 Tablet(s) Oral QD 03/07/20 20 021 Inactive Zetia 10 mg tablet RxNorm: 618058 Take 1 Tablet(s) Oral QD 03/07/20 20 Inactive Lyrica 50 mg capsule RxNorm: 076136 Take 1 Capsule(s) Oral QAM every morning 02/15/20 20 Inactive Lyrica 100 mg capsule RxNorm: 200090 Take 1 Capsule(s) Oral QHS every night at bedtime 02/15/20 20 Inactive Lyrica 100 mg capsule RxNorm: 625389 Take 1 Capsule(s) Oral QHS every night at bedtime 02/15/20 20 Inactive Lyrica 50 mg capsule RxNorm: 723390 Take 1 Capsule(s) Oral QAM every morning 02/15/20 20 Inactive polyethylene glycol 3350 17 gram/dose oral powder RxNorm: 215348 Take 17=1 capful Gram(s) Oral BID as needed mix with 4-8oz of liquid 06/12/19 22 024 Inactive metoprolol succinate ER 200 mg tablet,extended release 24 hr RxNorm: 596880 Take 1 Tablet(s) Oral QD 08/12/19 23 Active loperamide 2 mg capsule RxNorm: 089627 Take 1 Capsule(s) Oral QID as needed 06/12/19 22 Active hydralazine 50 mg tablet RxNorm: 718091 Take 1 Tablet(s) Oral QID 08/12/19 23 Active venlafaxine ER 75 mg capsule,extended release 24 hr RxNorm: 869208 Take 3 Capsule(s) Oral QD 06/12/19 22 023 Inactive icosapent ethyl 1 gram capsule RxNorm: 1415354 Take 2 Capsule(s) (2 gm) Oral BID with meals 10/07/19 23 023 Inactive Okay to dispense one 2gm tab if you have that available. Levemir FlexTouch U-100 Insulin 100 unit/mL (3 mL) subcutaneous pen RxNorm: 343047 Inject 80 Unit(s) Subcutaneous BID 07/14/19 23 023 Inactive Novolog Flexpen U-100 Insulin aspart 100 unit/mL (3 mL) subcutaneous RxNorm: 2466881 Insert 30 Unit(s) Subcutaneous TID with meals 10/08/19 22 022 Inactive Medication Administered No Medication Administered data Procedures Procedure Codes Date SYS BP LESS 140 CPT-4: G8752 05/04/2023 CUI BP LESS 90 CPT-4: G8754 05/04/2023 Vital Signs Date Vital 05/04/2023 Blood Pressure 1: 123/76 Code: 8480-6 BMI: NaN Code: 27188-3 Heart Rate 1: 86 bpm Code: 8867-4 Height: 5'5 Code: 8302-2 Respiratory Rate: 18 bpm Weight: Code: 3141-9 Reason For Visit No Reason For Visit data Encounters Encounter Performer Location Location Address Codes Date ([address]) Home or Residence Visit Est Pt - Low Level, 30 mins Diagnosis: Type 2 diabetes mellitus with diabetic polyneuropathy, with long-term current use of insulin[ICD10: E11.42] Diagnosis: Hypertensive heart disease without heart failure[ICD10: I11.9] Chelo Fonseca [facility] [place] [facility] [address] [address] [address] [place] [id number] CPT-4: 58310 05/04/2023 Plan of Care Planned Activity Notes Codes Status Date Appointment: Sandra Clark WPtel: [phone] Telehealth Psych Follow Up 12/09 Appointment: Tapan Shirley WPtel: [address] [facility] [address] [id number] [facility] 10/26/2022 Referral: [facility] WPtel: [phone] , [address] [id number] [place] Referral Records Received 09/21/2022 Appointment: Tapan Shirley WPtel: [address] [facility] [address] [id number] [place] F/U 08/11/2022 Appointment: Tapan Shirley WPtel: [address] [facility] [address] [id number] [place] F/U 07/14/2022 Appointment: Tapan Shirley WPtel: [address] [facility] [address] [id number] [place] F/U 02/10/2022 Referral: [facility] WPtel: [address] [facility] [address] [id number] [place] Referral Completed 05/28/2021 Referral: General Cardiology [...] Sister Jyotsna involved in his care cell# [phone] Guardian: Giulia (tapan met in person 09/01/21), now has Lexii (same group as giulia)Lab Schedule: Mar-/September*September (CBC with diff, CMP, A1c) (Novemebr: CBC, CMP, A1c, Lipids, VitD) 10/08/2023 Hypertensive heart disease w [facility] heart failure Cardiology follow up this month. BP log reviewed without concerns. Will continue current regimen Type 2 diabetes mellitus with diabetic polyneuropathy, with long-term current use of insulin Encouraged regular endo follow up. He is reportedly out of Ozempic which was supposed to be given today. Will send refills. . 05/04/2023
--- OUTSIDE RECORDS SUMMARY | 2023-06-14 19:00 | XMS_ITS | CCD ---
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 Accounts Receivable Specialist Name Role Phone Arpitmichelle [facility]CKINLEY-[facility] Primary Care Provider Leona vailable [place] [facility] Chronic Care Management U navailable Summary Purpose DataExchange Insurance Providers Payer name Policy type / Coverage type Covered democrat ID Effective Begin Date Effective End Date [place] Part B [id number] Unknown Unknown Medicaid [place] Medicare Part B [id number] Unknown Unknown Family history Sister Brittany Suggs [...] Residential 09/03/[address]: 1212746 Non-Smoker / No History of Smoking 09/02/[address]: [id number] No Alcohol Consum ption 09/02/2020 Allergies, Adverse Reactions, Alerts Substance Reaction Codes Entered Date Inactivated Date Status LISINOPRIL RxNorm: 51115 02/12/2020 No Inactive Da te Active Metformin HCl Unknown 02/12/2020 No Inactive Cristiano e Active Problems Condition Codes Effective Dates Condition St atus 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 ICD-10: K59.01 ICD-9: 564.01 06/15/2023 Active Diabetic neuropathy associat ed with type 2 diabetes mellitus ICD-10: E11.40 ICD-9: 250.60 06/15/2023 Active Hx of deep venous thrombosis ICD-10: Z86 .718 ICD-9: V12.51 06/15/2023 Active Onychogryposis ICD-10: L60.2 ICD-9: 703.8 06/15/2023 Active Type 2 diabetes mellitus wit h diabetic polyneuropathy, with long-term current use of insulin ICD-10: E11.42 ICD-9: 250.60 06/15/2023 Active Hypertensive heart disease w ithout heart failure ICD-10: I11.9 ICD-9: 402.90 05/04/2023 Active Coronary artery disease invo lving wiyot coronary artery of wiyot heart, angina presence unspecified ICD-10: I25.10 ICD-9: 414.01 04/14/2023 Active Reducible umbilical hernia ICD-10: K42.9 [...] F33. 9 ICD-9: 296.30 03/03/2023 Active Other salvage determiner (current) dr ug therapy ICD-10: Z79.899 ICD-9: [...] limbs ICD-10: G82.20 ICD-9: 344.1 11/10/2022 Active Lower extremity edema ICD-10: R60.0 ICD-9: [...] Cellulitis ICD-10: L03.90 ICD-9: 682.9 03/10/2022 Active Hypercoagulable state ICD-10: D68.59 ICD-9: 289.81 02/10/2022 Active PVD (peripheral vascular disease) ICD-10 : I73.9 ICD-9: 443.9 02/10/2022 Active Depression ICD-10: F32.9 ICD-9: 311 02/10/2022 Resolved DVT (deep venous thrombosis) ICD-10: I82 .409 ICD-9: 453.40 02/10/2022 Resolved Encounter for immunization ICD-10: Z23 ICD-9: V03.89 02/10/2022 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 ICD-10: Z79.4 [...] Instructions bisacodyl 10 mg rectal suppository RxNorm: 250934 Insert one suppository per rectum once daily as needed for constipation 06/15/19 24 024 Inactive bisacodyl 10 mg rectal suppository RxNorm: 190617 Insert one suppository per rectum once daily as needed for constipation 06/15/19 24 024 Inactive pregabalin 100 mg capsule RxNorm: 486251 Take 1 Capsule(s) Oral QAM every morning 04/27/20 024 Inactive Levemir FlexPen 100 unit/mL (3 mL) solution subcutaneous insulin pen RxNorm: 685713 Inject 30 Unit(s) Subcutaneous BID 04/27/20 23 024 Inactive rosuvastatin 40 mg tablet RxNorm: 860921 Take 1 Tablet(s) Oral QPM every evening 04/16/20 024 Inactive D/C rosuvastatin 20mg venlafaxine ER 75 mg capsule,extended release 24 hr RxNorm: 968470 Take 3 Capsule(s) Oral QD 04/14/20 023 Inactive pregabalin 100 mg capsule RxNorm: 322683 Take 1 Capsule(s) Oral QAM every morning [...] meter clotrimazole 1 % topical cream RxNorm: 986367 Take apply topically to abdominal folds twice daily for 14 days 03/12/20 024 Inactive Ozempic 1 mg/dose (4 mg/3 mL) subcutaneous pen injector RxNorm: 8759292 Inject 1 Milligram(s) Subcutaneous QW once a week 03/11/20 23 023 Inactive rosuvastatin 20 mg tablet RxNorm: 093315 Take 1 Tablet(s) Oral QD 02/26/20 23 023 Inactive d/c pravastatin 80mg Ozempic 1 mg/dose (4 mg/3 mL) subcutaneous pen injector RxNorm: 9921199 Inject 1 Milligram(s) Subcutaneous QW once a week 02/20/20 023 Inactive pregabalin 150 mg capsule RxNorm: 172963 Take 1 Capsule(s) Oral HS at bed time 02/19/20 023 Inactive pregabalin 100 mg capsule RxNorm: 378107 Take 1 Capsule(s) Oral QAM every morning 02/18/20 023 Inactive FreeStyle Chema 2 Sensor kit RxNorm: use as directed 02/04/20 23 024 Inactive venlafaxine ER 75 mg capsule,extended release 24 hr RxNorm: 719288 Take 3 Capsule(s) Oral QD 02/04/20 023 Inactive FreeStyle Chema 2 Sensor kit RxNorm: use as directed 02/04/20 23 023 Inactive fluconazole 150 mg tablet RxNorm: 086771 Take 1 Tablet(s) Oral on day 3 and on day 6 02/03/20 23 024 Active chlorthalidone 25 mg tablet RxNorm: 246952 Take 1 Tablet(s) Oral QAM every morning 02/03/20 23 No Stop Date Active venlafaxine ER 150 mg capsule,extended release 24 hr RxNorm: 185872 Take 1 Capsule(s) Oral QD 02/03/20 23 023 Inactive acetaminophen 500 mg tablet RxNorm: 303521 1 TABLET ORALLY 3 TIMES DAILY (MAX APAP:4GM/24HR) 12/15/19 23 023 Inactive potassium chloride ER 20 mEq tablet,extended release RxNorm: 069819 Take 1 Tablet(s) Oral BID 12/09/19 23 024 Inactive d/c 20mEq once daily (sent from hospital) clotrimazole 1 % topical cream RxNorm: 078372 apply 1g topically to top of feet and in between toes BID 12/09/19 23 023 Inactive nystatin 100,000 unit/gram topical powder RxNorm: 320508 APPLY TO AFFECTED AREAS TOPICALLY 2 TIMES DAILY 11/21/19 024 Inactive Nystop 100,000 unit/gram topical powder RxNorm: 639413 Apply to abd folds, under breasts and L side of groin Topical BID x 14 days, then BID PRN 11/20/19 023 Inactive dx: yeast dermatitis [place] Ultra Strength 4 %-30 %-10 % topical cream RxNorm: 291521 Apply 1 Gram(s) Topical QID PRN to feet and legs for neuropathic pain 11/11/19 024 Active hydrocortisone 2.5 % topical cream RxNorm: 561563 Apply 1/2 Gram(s) Topical BID as needed 11/10/19 024 Inactive clotrimazole 1 % topical cream RxNorm: 127951 Apply 1/2 Gram(s) Topical BID Apply to affected areas of groin, periarea, and abdominal topically 2 times daily 11/10/19 023 Inactive Humulin R U-500 (Concentrated) Insulin 500 unit/mL subcutaneous soln RxNorm: 917857 Inject 100 Unit(s) Subcutaneous TID 10/07/19 024 Inactive Ozempic 0.25 mg or 0.5 mg (2 mg/3 mL) subcutaneous pen injector RxNorm: 9038931 Inject 1/2 Milligram(s) Subcutaneous QW once a week 10/07/19 024 Inactive Levemir FlexPen 100 unit/mL (3 mL) solution subcutaneous insulin pen RxNorm: 964139 Inject 30 Unit(s) Subcutaneous BID 10/07/19 23 023 Inactive aripiprazole 15 mg tablet RxNorm: 564221 1/2 TAB (7.5MG) ORALLY DAILY (DX:MAJOR DEPRESSIVE DISORDER) 09/23/19 23 023 Inactive Lancets,Thin 28 gauge RxNorm: Use 1 as directed QID 09/15/19 23 024 Inactive Accu-Chek Guide test strips RxNorm: Use 1 Test Strip QID 09/15/19 23 023 Inactive ok to substitute with any covered alternative test strip torsemide 20 mg tablet RxNorm: 558106 Take 1 Tablet(s) Oral BID 09/09/19 23 024 Inactive d/c once daily dosing carvedilol 25 mg tablet RxNorm: 047884 Take 1 Tablet(s) Oral QD 08/25/19 23 024 Inactive pregabalin 150 mg capsule RxNorm: 810266 1 Capsule(s) Oral HS at bed time 08/18/19 23 023 Inactive pregabalin 100 mg capsule RxNorm: 173087 1 Capsule(s) Oral QAM every morning 08/18/19 23 023 Inactive carvedilol 25 mg tablet RxNorm: 139158 1 Tablet(s) Oral QD 07/28/19 23 023 Inactive lisinopril 20 mg tablet RxNorm: 465442 Give 1 Tablet(s) Oral QD 07/28/19 23 023 Inactive Lyrica 150 mg capsule RxNorm: 066351 Take 1 Capsule(s) Oral QHS every night at bedtime 07/19/19 23 023 Inactive d/c 100mg dose Diflucan 150 mg tablet RxNorm: 015037 Take 1 Tablet(s) Oral QD repeat on day 3 and 6 07/19/19 23 023 Inactive pregabalin 100 mg capsule RxNorm: 132033 Take 1 Capsule(s) Oral QAM every morning 07/19/19 23 023 Inactive gatifloxacin 0.5 % eye drops RxNorm: 867569 Instill 1 Drop(s) as directed TID Instill 1 drop in to affected eye(s) starting 1 day prior to surgery and continue until gone (do not exceed 4 weeks). 07/13/19 23 023 Inactive carvedilol 25 mg tablet RxNorm: 578142 2 Tablet(s) Oral BID 07/13/19 23 023 Inactive Humulin R Regular U-100 Insulin 100 unit/mL injection solution RxNorm: 419497 85 Unit(s) Injection TID 07/13/19 23 023 Inactive ketorolac 0.5 % eye drops RxNorm: 866661 Instill 1 Drop(s) as directed QID Instill 1 drop into affected eye(s) 4 times daily starting 1 day prior to surgery and continue until gone (do not exceed 4 weeks). 07/13/19 23 023 Inactive Diflucan 150 mg tablet RxNorm: 681613 Take 1 Tablet(s) Oral QD repeat on day 3 and 6 06/30/19 23 023 Inactive Accu-Chek Guide test strips RxNorm: Use 1 Test Strip QID Use 1 test strip to monitor blood glucose 4 times daily and as needed. Dx:E11.42. 06/23/19 023 Inactive ok to substitute with any covered alternative test strip dextromethorphan-gu aifenesin 10 mg-100 mg/5 mL oral liquid RxNorm: 671978 Take 10 Milliliter(s) Oral every 4 hours as needed for cough 06/19/19 023 Inactive dextromethorphan-gu aifenesin 10 mg-100 mg/5 mL oral liquid RxNorm: 273737 Take 10 Milliliter(s) Oral every 4 hours as needed for cough 06/19/19 023 Inactive Lyrica 150 mg capsule RxNorm: 525135 Take 1 Capsule(s) Oral QHS every night at bedtime 06/18/19 023 Inactive d/c 100mg dose aripiprazole 15 mg tablet RxNorm: 762057 1/2 TAB (7.5MG) ORALLY DAILY (DX:MAJOR DEPRESSIVE DISORDER) 06/05/19 23 023 Inactive pregabalin 100 mg capsule RxNorm: 151117 1 Capsule(s) Oral QAM every morning 06/02/19 23 023 Inactive Banophen 50 mg capsule RxNorm: 0745095 Take 1 Capsule(s) Oral Q6H every 6 hours as needed 05/19/19 23 No Stop Date Active Novolog Flexpen U-100 Insulin aspart 100 unit/mL (3 mL) subcutaneous RxNorm: 4211623 Inject 10 Unit(s) Subcutaneous QHS every night at bedtime with nighttime snack 04/08/20 22 022 Inactive Novolog Flexpen U-100 Insulin aspart 100 unit/mL (3 mL) subcutaneous RxNorm: 8971319 Inject 42 Unit(s) Subcutaneous TID in addition to sliding scale 04/08/20 022 Inactive d/c 36u albuterol sulfate HFA 90 mcg/actuation aerosol inhaler RxNorm: 1697307 Take 2 Puff(s) Inhalation Q4H every four hours as needed as needed for SOB, cough, or wheezing 04/07/20 030 Active Banophen 50 mg capsule RxNorm: 6090670 Take 1 Capsule(s) Oral Q6H every 6 hours as needed 04/06/20 023 Inactive diphenhydramine 50 mg tablet RxNorm: 6573664 Take 1 Tablet(s) Oral Q6H every 6 hours as needed 04/06/20 022 Inactive diphenhydramine 50 mg tablet RxNorm: 8308064 1 Tablet(s) Oral Q6H every 6 hours as needed 04/06/20 022 Inactive Abilify 15 mg tablet RxNorm: 418906 1/2 Tablet(s) Oral QD 03/10/20 023 Inactive Shingrix (PF) 50 mcg/0.5 mL intramuscular suspension, kit RxNorm: 4569477 Administer 1/2 Milliliter(s) Intramuscular QD one time shingrix step 2 ( step 1 given 11/04/21) WITH needle - Nursing please administer upon arrival and once administered post a bridge message 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, 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, 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, and lot# so we can update [facility] 02/18/20 22 022 Inactive dispense with needle Shingrix (PF) 50 mcg/0.5 mL intramuscular suspension, kit RxNorm: 2791922 Administer 1/2 Milliliter(s) Intramuscular QD one time shingrix step 2 ( step 1 given 11/04/21) WITH needle - Nursing please administer upon arrival and once administered post a bridge message with 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, 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, 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, and lot# so we can update [facility] 02/18/20 22 022 Inactive dispense with needle polyethylene glycol 3350 17 gram/dose oral powder RxNorm: 648979 Take 17=1 capful Gram(s) Oral QD mix with 4-8oz of liquid 01/08/20 22 023 Inactive take this in addition to BID prn order Lyrica 100 mg capsule RxNorm: 335457 Take 1 Capsule(s) Oral QAM every morning 01/08/20 22 022 Inactive d/c 50mg dose acetaminophen 500 mg tablet RxNorm: 376685 Take 1 Tablet(s) Oral TID 01/08/20 22 022 Inactive d/c PRN order Lyrica 150 mg capsule RxNorm: 469453 Take 1 Capsule(s) Oral QHS every night at bedtime 01/08/20 22 023 Inactive d/c 100mg dose Abilify 5 mg tablet RxNorm: 885904 Take 1 Tablet(s) Oral QD take 1 tab po QD #30 refill 5 dx: MDD 12/12/19 22 022 Inactive Abilify 5 mg tablet RxNorm: 861939 Take 1 Tablet(s) Oral QD take 1 tab po QD #30 refill 5 dx: MDD 12/12/19 22 022 Inactive Novolog Flexpen U-100 Insulin aspart 100 unit/mL (3 mL) subcutaneous RxNorm: 4254128 Inject 42 Unit(s) Subcutaneous TID in addition to sliding scale 12/10/19 22 Inactive d/c 36u chlorthalidone 25 mg tablet RxNorm: 598863 Take 1 Tablet(s) Oral QAM every morning 12/10/19 22 023 Inactive pregabalin 50 mg capsule RxNorm: 867213 Take 1 Capsule(s) Oral QAM every morning 11/12/19 22 022 Inactive tetanus-diphtheria toxoids-Td 2 Lf unit-2 Lf unit/0.5 mL IM suspension RxNorm: 139 Take 0.5 Miscellaneous Intramuscular 11/12/19 22 022 Inactive need tdap - nursing to administer upon arrival pregabalin 50 mg capsule RxNorm: 470199 Take 1 Capsule(s) Oral QAM every morning 10/16/19 22 022 Inactive pregabalin 50 mg capsule RxNorm: 916580 Take 1 Capsule(s) Oral QAM every morning 10/16/19 22 022 Inactive pregabalin 50 mg capsule RxNorm: 538037 1 Capsule(s) Oral QAM every morning 10/15/19 22 Inactive Shingrix (PF) 50 mcg/0.5 mL intramuscular suspension, kit RxNorm: 4066137 Administer 1/2 Milliliter(s) Intramuscular one time Nursing please administer upon arrival and once administered post a bridge message with 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 10/09/19 22 022 Inactive shingrix step 1 cholecalciferol (vitamin D3) 1,250 mcg (50,000 unit) capsule RxNorm: 159892 Take 1 Capsule(s) Oral QW once a [...] aspart 100 unit/mL (3 mL) subcutaneous RxNorm: 3234753 Inject 10 Unit(s) Subcutaneous QHS every night at bedtime with nighttime snack 10/08/19 22 Inactive Shingrix (PF) 50 mcg/0.5 mL intramuscular suspension, kit RxNorm: 6169228 ADMINISTER 2-DOSE SERIES PER CDC GUIDELINES 10/08/19 22 022 Active Shingrix (PF) 50 mcg/0.5 mL intramuscular suspension, kit RxNorm: 7046594 ADMINISTER 2-DOSE SERIES PER CDC GUIDELINES 10/08/19 Inactive Novolog Flexpen U-100 Insulin aspart 100 unit/mL (3 mL) subcutaneous RxNorm: 6211526 Inject 36 Unit(s) Subcutaneous TID in addition to sliding scale 10/08/19 Inactive Novofine Autocover 30 gauge x 1/3 needle RxNorm: Use 1 Miscellaneous UD as directed Use 1 needle as directed to administer insulin 5 times a day Dx:E11.42. 10/03/19 Inactive ok to substitute with any covered alternative pen needle benzoyl peroxide 10 % topical cleanser RxNorm: 308601 Apply 1 Application Topical QD apply to face, wash rinse and dry once daily (may change to QOD if drying) 08/19/19 022 Inactive (%covered by insurance) #60ml refill 11 dx: acne benzoyl peroxide 10 % topical cleanser RxNorm: 990844 Apply 1 Application Topical QD apply to face, wash rinse and dry once daily (may change to QOD if drying) 08/19/19 022 Inactive (%covered by insurance) #60ml refill 11 dx: acne benzoyl peroxide 10 % topical cleanser RxNorm: 598360 Apply 1 Application Topical QD apply to face, wash rinse and dry once daily (may change to QOD if drying) 08/19/19 022 Inactive (%covered by insurance) #60ml refill 11 dx: acne Lyrica 50 mg capsule RxNorm: 935519 Take 1 Capsule(s) Oral QAM every morning Take 1 capsule by mouth once daily 08/19/19 22 022 Inactive benzoyl peroxide 10 % topical cleanser RxNorm: 370308 Apply 1 Application Topical QD apply to face, wash rinse and dry once daily (may change to QOD if drying) 08/19/19 022 Inactive (%covered by insurance) #60ml refill 11 dx: acne Lyrica 100 mg capsule RxNorm: 353891 Take 1 Capsule(s) Oral QHS every night at bedtime Take 1 capsule by mouth once daily at bedtime 08/19/19 22 Inactive Lyrica 100 mg capsule RxNorm: 596559 Take 1 Capsule(s) Oral QHS every night at bedtime Take 1 capsule by mouth once daily at bedtime 08/16/19 22 022 Inactive Lyrica 50 mg capsule RxNorm: 800428 Take 1 Capsule(s) Oral QAM every morning Take 1 capsule by mouth once daily 08/16/19 22 022 Inactive Levemir FlexTouch U-100 Insulin 100 unit/mL (3 mL) subcutaneous pen RxNorm: 061534 Inject 86 Unit(s) Subcutaneous BID 08/05/19 22 022 Inactive d/c 83units BID Lyrica 100 mg capsule RxNorm: 052025 Take 1 Capsule(s) Oral QHS every night at bedtime Take 1 capsule by mouth once daily at bedtime 07/14/19 22 022 Inactive Lyrica 50 mg capsule RxNorm: 100746 Take 1 Capsule(s) Oral QAM every morning Take 1 capsule by mouth once daily 07/14/19 22 022 Inactive Levemir FlexTouch U-100 Insulin 100 unit/mL (3 mL) subcutaneous pen RxNorm: 125097 Inject 83 Unit(s) Subcutaneous BID 07/08/19 22 [...] 30 mg tablet,extended release 24 hr RxNorm: 468949 Take 1 Tablet(s) Oral QD 05/05/20 21 024 Inactive hydralazine 50 mg tablet RxNorm: 691278 Take 1 Tablet(s) Oral QID 05/05/20 21 022 Inactive venlafaxine ER 225 mg tablet,extended release 24 hr RxNorm: 540540 Take 1 Tablet(s) Oral QD 05/05/20 21 021 Inactive venlafaxine ER 225 mg tablet,extended release 24 hr RxNorm: 612889 Take 1 Tablet(s) Oral QD 05/05/20 21 022 Inactive hydralazine 50 mg tablet RxNorm: 220551 Take 1 Tablet(s) Oral QID 05/05/20 21 021 Inactive aspirin 81 mg tablet,delayed release RxNorm: 040203 Take 1 Tablet(s) Oral QD 03/31/20 21 022 Inactive Zetia 10 mg tablet RxNorm: 819104 Take 1 Tablet(s) Oral QD 03/31/20 21 024 Inactive Vitamin D2 1,250 mcg (50,000 unit) capsule RxNorm: 9107721 Take 1 Capsule(s) Oral QW once a week x 12 weeks 03/31/20 21 022 Inactive Vitamin D2 1,250 mcg (50,000 unit) capsule RxNorm: 9404998 Take 1 Capsule(s) Oral QW once a week 03/31/20 021 Inactive Zetia 10 mg tablet RxNorm: 510283 Take 1 Tablet(s) Oral QD 03/31/20 Inactive hydralazine 25 mg tablet RxNorm: 417698 Take 1 Tablet(s) Oral QID 03/31/20 021 Inactive hydralazine 25 mg tablet RxNorm: 984567 Take 1 Tablet(s) Oral QID 03/31/20 021 Inactive hydralazine 10 mg tablet RxNorm: 474014 Take 1 Tablet(s) Oral QID 03/03/20 021 Inactive cephalexin 500 mg tablet RxNorm: 281895 Take 1 Tablet(s) Oral QID 02/27/20 021 Inactive cephalexin 500 mg tablet RxNorm: 209533 Take 1 Tablet(s) Oral QID 02/27/20 021 Inactive lisinopril 40 mg tablet RxNorm: 746115 Take 1 Tablet(s) Oral QD 02/11/20 023 Inactive Eliquis 5 mg tablet RxNorm: 8220624 Take 1 Tablet(s) Oral BID 01/05/20 022 Inactive Eliquis 5 mg tablet RxNorm: 5893122 Take 2 Tablet(s) Oral QD 01/01/20 021 Inactive Lyrica 50 mg capsule RxNorm: 083752 Take 1 Capsule(s) Oral QAM every morning 12/24/19 021 Inactive Lyrica 100 mg capsule RxNorm: 558930 Take 1 Capsule(s) Oral QHS every night at bedtime 12/24/19 021 Inactive clotrimazole 1 % topical cream RxNorm: 478106 Apply to right foot and toes Topical BID 12/04/19 21 023 Inactive metoprolol succinate ER 200 mg tablet,extended release 24 hr RxNorm: 206356 Take 1 Tablet(s) Oral QD 12/04/19 21 023 Inactive ciprofloxacin 500 mg tablet RxNorm: 327383 Take 1 Tablet(s) Oral QD 11/30/19 21 021 Inactive DX ofloxacin otic drops Accu-Chek Guide test strips RxNorm: USE 1 TO CHECK GLUCOSE 4 TIMES DAILY AND NEEDED 11/15/19 21 023 Inactive Blood Glucose Test strips RxNorm: Use 1 Test Strip QID at PRN 11/05/19 21 023 Inactive E11.42 lisinopril 30 mg tablet RxNorm: 959889 Take 1 Tablet(s) Oral QD 10/30/19 021 Inactive lisinopril 20 mg tablet RxNorm: 920079 Take 1 Tablet(s) Oral QD 10/23/19 21 021 Inactive lisinopril 20 mg tablet RxNorm: 755147 Take 1 Tablet(s) Oral QD 10/23/19 21 021 Inactive lisinopril 10 mg tablet RxNorm: 524960 Take 1 Tablet(s) Oral QD 10/02/19 021 Inactive icosapent ethyl 1 gram capsule RxNorm: 4213822 Take 2 Capsule(s) (2 gm) Oral BID with meals 09/12/19 21 024 Inactive Okay to dispense one 2gm tab if you have that available. icosapent ethyl 1 gram capsule RxNorm: 6852174 Take 2 Capsule(s) Oral BID 09/12/19 21 021 Inactive Okay to dispense one 2gm tab if you have that available. amlodipine 10 mg tablet RxNorm: 682946 Take 1 Tablet(s) Oral QD 09/04/19 21 022 Inactive aspirin 81 mg tablet,delayed release RxNorm: 414624 Take 1 Tablet(s) Oral QD 09/04/19 21 021 Inactive Levemir FlexTouch U-100 Insulin 100 unit/mL (3 mL) subcutaneous pen RxNorm: 329032 Inject 150 Unit(s) Subcutaneous BID 09/04/19 21 022 Inactive venlafaxine ER 150 mg tablet,extended release 24 hr RxNorm: 666237 Take 1 Tablet(s) Oral QD 09/04/19 21 021 Inactive clotrimazole-betame thasone 1 %-0.05 % topical cream RxNorm: 595927 Apply to rash on red area on left abdomen/chest Topical BID 08/10/19 21 Inactive amlodipine 5 mg tablet RxNorm: 871957 Take 1 Tablet(s) Oral QD 07/31/19 21 Inactive cephalexin 500 mg tablet RxNorm: 869183 Take 1 Tablet(s) Oral BID BID - Twice Daily 07/31/19 Inactive Start 08/01/20 pantoprazole 40 mg tablet,delayed release RxNorm: 708628 Take 1 Tablet(s) Oral QAM every morning 07/08/19 Inactive senna 8.6 mg tablet RxNorm: 221852 Take 1 Tablet(s) Oral QD 07/08/19 Inactive carbamazepine 200 mg tablet RxNorm: 003885 Take 1 Tablet(s) Oral BID 07/08/19 Inactive clopidogrel 75 mg tablet RxNorm: 842667 Take 1 Tablet(s) Oral QD 07/08/19 021 Inactive Blood Glucose Test strips RxNorm: Use 1 Test Strip QID at PRN 07/08/19 Inactive E11.42 Novolog Flexpen U-100 Insulin aspart 100 unit/mL (3 mL) subcutaneous RxNorm: 3588563 Administer per sliding scale Milliliter(s) Subcutaneous TID 151-200: 10 u; 201-250: 20 u; 251-300: 30 u; 301-350: 40 u; 351-400: 50 u. 07/08/19 022 Inactive lisinopril 5 mg tablet RxNorm: 724142 Take 1 Tablet(s) Oral QD 07/08/19 021 Inactive Novolog Flexpen U-100 Insulin aspart 100 unit/mL (3 mL) subcutaneous RxNorm: 5770746 Inject 85 Unit(s) Subcutaneous TID 07/08/19 022 Inactive pravastatin 80 mg tablet RxNorm: 909713 Take 1 Tablet(s) Oral QHS every night at bedtime 07/08/19 023 Inactive clotrimazole 1 % topical cream RxNorm: 874409 Apply to bilateral groin areas Topical BID 07/08/19 022 Inactive metoprolol succinate ER 200 mg tablet,extended release 24 hr RxNorm: 162057 Take 1 Tablet(s) Oral QD 07/08/19 021 Inactive Vitamin D3 25 mcg (1,000 unit) tablet RxNorm: 585024 Take 1 Tablet(s) Oral QD 07/08/19 021 Inactive isosorbide dinitrate 30 mg tablet RxNorm: 495825 Take 1 Tablet(s) Oral QD 07/08/19 021 Inactive Levemir FlexTouch U-100 Insulin 100 unit/mL (3 mL) subcutaneous pen RxNorm: 649719 Inject 140 Unit(s) Subcutaneous BID 07/08/19 021 Inactive torsemide 20 mg tablet RxNorm: 641050 Take 1 Tablet(s) Oral QD 07/08/19 023 Inactive venlafaxine 75 mg tablet RxNorm: 085495 Take 1 Tablet(s) Oral QD 07/08/19 021 Inactive acetaminophen 500 mg tablet RxNorm: 240875 Take 1 Tablet(s) Oral TID as needed for headache 06/18/19 021 Inactive acetaminophen 500 mg tablet RxNorm: 499594 Take 1 Tablet(s) Oral TID as needed for headache 06/18/19 021 Inactive Lyrica 100 mg capsule RxNorm: 902662 Take 1 Capsule(s) Oral QHS every night at bedtime 06/11/19 021 Inactive Lyrica 50 mg capsule RxNorm: 878086 Take 1 Capsule(s) Oral QAM every morning 06/10/19 21 021 Inactive hydrocortisone 2.5 % topical cream RxNorm: 655621 Apply to bilateral groin creases Topical BID 05/15/20 20 021 Inactive clotrimazole 1 % topical cream RxNorm: 922513 Apply to bilateral groin areas Topical BID 05/15/20 20 021 Inactive Lyrica 50 mg capsule RxNorm: 344804 Take 1 Capsule(s) Oral QAM every morning 05/14/20 20 Inactive Lyrica 100 mg capsule RxNorm: 250649 Take 1 Capsule(s) Oral QHS every night [...] Inactive Nystop 100,000 unit/gram topical powder RxNorm: 745676 Apply to abd folds, under breasts and L side of groin Topical BID x 14 days, then BID PRN 04/08/20 20 Inactive dx: yeast dermatitis Lyrica 100 mg capsule RxNorm: 291382 Take 1 Capsule(s) Oral QHS every night at bedtime 03/13/20 20 Inactive Lyrica 50 mg capsule RxNorm: 337793 Take 1 Capsule(s) Oral QAM every morning 03/13/20 20 Inactive ketoconazole 2 % shampoo RxNorm: 847401 Apply Topical two times a week with showers 03/11/20 20 Inactive cholecalciferol (vitamin D3) 50 mcg (2,000 unit) tablet RxNorm: 632964 Take 1 Tablet(s) Oral QD 03/11/20 20 021 Inactive Zetia 10 mg tablet RxNorm: 763827 Take 1 Tablet(s) Oral QD 03/07/20 20 021 Inactive Zetia 10 mg tablet RxNorm: 041361 Take 1 Tablet(s) Oral QD 03/07/20 20 Inactive Lyrica 50 mg capsule RxNorm: 012759 Take 1 Capsule(s) Oral QAM every morning 02/15/20 20 Inactive Lyrica 100 mg capsule RxNorm: 601581 Take 1 Capsule(s) Oral QHS every night at bedtime 02/15/20 20 Inactive Lyrica 100 mg capsule RxNorm: 352296 Take 1 Capsule(s) Oral QHS every night at bedtime 02/15/20 20 Inactive Lyrica 50 mg capsule RxNorm: 434499 Take 1 Capsule(s) Oral QAM every morning 02/15/20 20 Inactive polyethylene glycol 3350 17 gram/dose oral powder RxNorm: 178931 Take 17=1 capful Gram(s) Oral BID as needed mix with 4-8oz of liquid 06/12/19 22 024 Inactive metoprolol succinate ER 200 mg tablet,extended release 24 hr RxNorm: 401843 Take 1 Tablet(s) Oral QD 08/12/19 23 Active loperamide 2 mg capsule RxNorm: 001810 Take 1 Capsule(s) Oral QID as needed 06/12/19 22 Active hydralazine 50 mg tablet RxNorm: 453449 Take 1 Tablet(s) Oral QID 08/12/19 23 Active venlafaxine ER 75 mg capsule,extended release 24 hr RxNorm: 516485 Take 3 Capsule(s) Oral QD 06/12/19 22 023 Inactive icosapent ethyl 1 gram capsule RxNorm: 8728234 Take 2 Capsule(s) (2 gm) Oral BID with meals 10/07/19 23 023 Inactive Okay to dispense one 2gm tab if you have that available. Levemir FlexTouch U-100 Insulin 100 unit/mL (3 mL) subcutaneous pen RxNorm: 639326 Inject 80 Unit(s) Subcutaneous BID 07/14/19 23 023 Inactive Novolog Flexpen U-100 Insulin aspart 100 unit/mL (3 mL) subcutaneous RxNorm: 6136489 Insert 30 Unit(s) Subcutaneous TID with meals 10/08/19 22 022 Inactive Medication Administered No Medication Administered data Reason For Visit No Reason For Visit data Plan of Care Planned Activity Notes Codes Status Date Referral: [facility] WPtel: [phone] [id number] [place] Referral Records Received 09/21/2022 Referral: [facility] WPtel: [phone] [id number] [place] Referral Completed 05/28/2021 Referral: General Cardiology [...] [facility] to have closer nursing attention. Sister Jyotsna involved in his care cell# [phone] Guardian: Don (tapan met in person 09/01/21), now has Lexii (same group as don)Lab Schedule: /September*September (CBC with diff, CMP, A1c) (Novemebr: CBC, CMP, A1c, Lipids, VitD) 10/08/2023
--- OUTSIDE RECORDS SUMMARY | 2023-07-04 19:00 | XMS_ITS | CCD ---
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 Care Management U navailable Summary Purpose DataExchange Insurance Providers Payer name Policy type / Coverage type Covered democrat ID Effective Begin Date Effective End Date [place] Part B [id number] Unknown Unknown [place] Part B [id number] Unknown Unknown Family history Sister Brittany Suggs [...] Intermediate 09/03/[address]: 1334638 Non-Smoker / No History of Smoking 09/02/[address]: 942249074 No Alcohol Consum ption 09/02/2020 Allergies, Adverse Reactions, Alerts Substance Reaction Codes Entered Date Inactivated Date Status LISINOPRIL RxNorm: 66813 02/12/2020 No Inactive Da te Active Metformin [...] 05/04/2023 Active Coronary artery disease invo lving [place] [...] F33. 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 ICD-10: Z79.4 02/10 [...] Fill Instructions pregabalin 150 mg capsule RxNorm: 993641 Take 1 Capsule(s) Oral QHS every night at bedtime 07/05/19 24 024 Inactive pregabalin 150 mg capsule RxNorm: 501232 Take 1 Capsule(s) Oral QHS every night at bedtime 07/05/19 24 024 Active polyethylene glycol 3350 17 gram/dose oral powder RxNorm: 090240 Take 1 Packet Oral QD as needed (1 packet = 17g) mix with 4-8oz of liquid 06/15/19 24 024 Inactive bisacodyl 10 mg rectal suppository RxNorm: 600632 Insert one suppository per rectum once daily as needed for constipation 06/15/19 24 024 Inactive bisacodyl 10 mg rectal suppository RxNorm: 504582 Insert one suppository per rectum once daily as needed for constipation 06/15/19 024 Inactive pregabalin 100 mg capsule RxNorm: 848006 Take 1 Capsule(s) Oral QAM every morning 04/27/20 024 Inactive Levemir FlexPen 100 unit/mL (3 mL) solution subcutaneous insulin pen RxNorm: 277610 Inject 30 Unit(s) Subcutaneous BID 04/27/20 23 024 Inactive rosuvastatin 40 mg tablet RxNorm: 288409 Take 1 Tablet(s) Oral QPM every evening 04/16/20 024 Inactive D/C rosuvastatin 20mg venlafaxine ER 75 mg capsule,extended release 24 hr RxNorm: 502037 Take 3 Capsule(s) Oral QD 04/14/20 23 023 Inactive pregabalin 100 mg capsule RxNorm: 289362 Take 1 Capsule(s) Oral QAM every morning [...] meter clotrimazole 1 % topical cream RxNorm: 115071 Take apply topically to abdominal folds twice daily for 14 days 03/12/20 024 Inactive Ozempic 1 mg/dose (4 mg/3 mL) subcutaneous pen injector RxNorm: 6027668 Inject 1 Milligram(s) Subcutaneous QW once a week 03/11/20 023 Inactive rosuvastatin 20 mg tablet RxNorm: 496435 Take 1 Tablet(s) Oral QD 02/26/20 23 023 Inactive d/c pravastatin 80mg Ozempic 1 mg/dose (4 mg/3 mL) subcutaneous pen injector RxNorm: 1336408 Inject 1 Milligram(s) Subcutaneous QW once a week 02/20/20 23 023 Inactive pregabalin 150 mg capsule RxNorm: 019174 Take 1 Capsule(s) Oral HS at bed time 02/19/20 23 023 Inactive pregabalin 100 mg capsule RxNorm: 383956 Take 1 Capsule(s) Oral QAM every morning 02/18/20 23 023 Inactive FreeStyle Chema 2 Sensor kit RxNorm: use as directed 02/04/20 23 024 Inactive venlafaxine ER 75 mg capsule,extended release 24 hr RxNorm: 035067 Take 3 Capsule(s) Oral QD 02/04/20 23 023 Inactive FreeStyle Chema 2 Sensor kit RxNorm: use as directed 02/04/20 23 023 Inactive fluconazole 150 mg tablet RxNorm: 252234 Take 1 Tablet(s) Oral on day 3 and on day 6 02/03/20 23 024 Active chlorthalidone 25 mg tablet RxNorm: 370367 Take 1 Tablet(s) Oral QAM every morning 02/03/20 23 No Stop Date Active venlafaxine ER 150 mg capsule,extended release 24 hr RxNorm: 391238 Take 1 Capsule(s) Oral QD 02/03/20 23 023 Inactive acetaminophen 500 mg tablet RxNorm: 921305 1 TABLET ORALLY 3 TIMES DAILY (MAX APAP:4GM/24HR) 12/15/19 023 Inactive potassium chloride ER 20 mEq tablet,extended release RxNorm: 348466 Take 1 Tablet(s) Oral BID 12/09/19 024 Inactive d/c 20mEq once daily (sent from hospital) clotrimazole 1 % topical cream RxNorm: 674799 apply 1g topically to top of feet and in between toes BID 12/09/19 23 023 Inactive nystatin 100,000 unit/gram topical powder RxNorm: 383606 APPLY TO AFFECTED AREAS TOPICALLY 2 TIMES DAILY 11/21/19 23 024 Inactive Nystop 100,000 unit/gram topical powder RxNorm: 728463 Apply to abd folds, under breasts and L side of groin Topical BID x 14 days, then BID PRN 11/20/19 023 Inactive dx: yeast dermatitis [place] Ultra Strength 4 %-30 %-10 % topical cream RxNorm: 667888 Apply 1 Gram(s) Topical QID PRN to feet and legs for neuropathic pain 11/11/19 024 Active hydrocortisone 2.5 % topical cream RxNorm: 483965 Apply 1/2 Gram(s) Topical BID as needed 11/10/19 024 Inactive clotrimazole 1 % topical cream RxNorm: 366256 Apply 1/2 Gram(s) Topical BID Apply to affected areas of groin, periarea, and abdominal topically 2 times daily 11/10/19 023 Inactive Humulin R U-500 (Concentrated) Insulin 500 unit/mL subcutaneous soln RxNorm: 093809 Inject 100 Unit(s) Subcutaneous TID 10/07/19 024 Inactive Ozempic 0.25 mg or 0.5 mg (2 mg/3 mL) subcutaneous pen injector RxNorm: 8886410 Inject 1/2 Milligram(s) Subcutaneous QW once a week 10/07/19 23 024 Inactive Levemir FlexPen 100 unit/mL (3 mL) solution subcutaneous insulin pen RxNorm: 624808 Inject 30 Unit(s) Subcutaneous BID 10/07/19 023 Inactive aripiprazole 15 mg tablet RxNorm: 422039 05/18 TAB (7.5MG) ORALLY DAILY (DX:MAJOR DEPRESSIVE DISORDER) 09/23/19 023 Inactive Lancets,Thin 28 gauge RxNorm: Use 1 as directed QID 09/15/19 23 024 Inactive Accu-Chek Guide test strips RxNorm: Use 1 Test Strip QID 09/15/19 23 023 Inactive ok to substitute with any covered alternative test strip torsemide 20 mg tablet RxNorm: 170750 Take 1 Tablet(s) Oral BID 09/09/19 23 024 Inactive d/c once daily dosing carvedilol 25 mg tablet RxNorm: 420866 Take 1 Tablet(s) Oral QD 08/25/19 23 024 Inactive pregabalin 150 mg capsule RxNorm: 414170 1 Capsule(s) Oral HS at bed time 08/18/19 023 Inactive pregabalin 100 mg capsule RxNorm: 650988 1 Capsule(s) Oral QAM every morning 08/18/19 23 023 Inactive carvedilol 25 mg tablet RxNorm: 248086 1 Tablet(s) Oral QD 07/28/19 23 023 Inactive lisinopril 20 mg tablet RxNorm: 034107 Give 1 Tablet(s) Oral QD 07/28/19 23 023 Inactive Lyrica 150 mg capsule RxNorm: 498859 Take 1 Capsule(s) Oral QHS every night at bedtime 07/19/19 023 Inactive d/c 100mg dose Diflucan 150 mg tablet RxNorm: 355413 Take 1 Tablet(s) Oral QD repeat on day 3 and 6 07/19/19 23 023 Inactive pregabalin 100 mg capsule RxNorm: 614019 Take 1 Capsule(s) Oral QAM every morning 07/19/19 23 023 Inactive gatifloxacin 0.5 % eye drops RxNorm: 417607 Instill 1 Drop(s) as directed TID Instill 1 drop in to affected eye(s) starting 1 day prior to surgery and continue until gone (do not exceed 4 weeks). 07/13/19 23 023 Inactive carvedilol 25 mg tablet RxNorm: 756066 2 Tablet(s) Oral BID 07/13/19 23 023 Inactive Humulin R Regular U-100 Insulin 100 unit/mL injection solution RxNorm: 046582 85 Unit(s) Injection TID 07/13/19 23 023 Inactive ketorolac 0.5 % eye drops RxNorm: 112320 Instill 1 Drop(s) as directed QID Instill 1 drop into affected eye(s) 4 times daily starting 1 day prior to surgery and continue until gone (do not exceed 4 weeks). 07/13/19 23 023 Inactive Diflucan 150 mg tablet RxNorm: 682651 Take 1 Tablet(s) Oral QD repeat on day 3 and 6 06/30/19 023 Inactive Accu-Chek Guide test strips RxNorm: Use 1 Test Strip QID Use 1 test strip to monitor blood glucose 4 times daily and as needed. Dx:E11.42. 06/23/19 23 023 Inactive ok to substitute with any covered alternative test strip dextromethorphan-gu aifenesin 10 mg-100 mg/5 mL oral liquid RxNorm: 897678 Take 10 Milliliter(s) Oral every 4 hours as needed for cough 06/19/19 23 023 Inactive dextromethorphan-gu aifenesin 10 mg-100 mg/5 mL oral liquid RxNorm: 808814 Take 10 Milliliter(s) Oral every 4 hours as needed for cough 06/19/19 23 023 Inactive Lyrica 150 mg capsule RxNorm: 984694 Take 1 Capsule(s) Oral QHS every night at bedtime 06/18/19 23 023 Inactive d/c 100mg dose aripiprazole 15 mg tablet RxNorm: 121959 1/2 TAB (7.5MG) ORALLY DAILY (DX:MAJOR DEPRESSIVE DISORDER) 06/05/19 23 023 Inactive pregabalin 100 mg capsule RxNorm: 802644 1 Capsule(s) Oral QAM every morning 06/02/19 23 023 Inactive Banophen 50 mg capsule RxNorm: 4568512 Take 1 Capsule(s) Oral Q6H every 6 hours as needed 05/19/19 No Stop Date Active Novolog Flexpen U-100 Insulin aspart 100 unit/mL (3 mL) subcutaneous RxNorm: 4380408 Inject 10 Unit(s) Subcutaneous QHS every night at bedtime with nighttime snack 04/08/20 Inactive Novolog Flexpen U-100 Insulin aspart 100 unit/mL (3 mL) subcutaneous RxNorm: 4858782 Inject 42 Unit(s) Subcutaneous TID in addition to sliding scale 04/08/20 Inactive d/c 36u albuterol sulfate HFA 90 mcg/actuation aerosol inhaler RxNorm: 7107950 Take 2 Puff(s) Inhalation Q4H every four hours as needed as needed for SOB, cough, or wheezing 04/07/20 030 Active Banophen 50 mg capsule RxNorm: 7592994 Take 1 Capsule(s) Oral Q6H every 6 hours as needed 04/06/20 023 Inactive diphenhydramine 50 mg tablet RxNorm: 5703686 Take 1 Tablet(s) Oral Q6H every 6 hours as needed 04/06/20 022 Inactive diphenhydramine 50 mg tablet RxNorm: 2694594 1 Tablet(s) Oral Q6H every 6 hours as needed 04/06/20 Inactive Abilify 15 mg tablet RxNorm: 129338 1/2 Tablet(s) Oral QD 03/10/20 023 Inactive Shingrix (PF) 50 mcg/0.5 mL intramuscular suspension, kit RxNorm: 5553586 Administer 1/2 Milliliter(s) Intramuscular QD one time shingrix step 2 ( step 1 given 11/04/21) WITH needle - Nursing please administer upon arrival and once administered post a bridge message with 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, 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, expiration date, and lot# so we can update [facility] 02/18/20 22 022 Inactive dispense with needle Shingrix (PF) 50 mcg/0.5 mL intramuscular suspension, kit RxNorm: 5434131 Administer 1/2 Milliliter(s) Intramuscular QD one time shingrix step 2 ( step 1 given 11/04/21) WITH needle - Nursing please administer upon arrival and once administered post a bridge message with date of administration, 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, expiration date, and lot# so we can update [facility] 02/18/20 22 022 Inactive dispense with needle polyethylene glycol 3350 17 gram/dose oral powder RxNorm: 119878 Take 17=1 capful Gram(s) Oral QD mix with 4-8oz of liquid 01/08/20 22 023 Inactive take this in addition to BID prn order Lyrica 100 mg capsule RxNorm: 148521 Take 1 Capsule(s) Oral QAM every morning 01/08/20 22 022 Inactive d/c 50mg dose acetaminophen 500 mg tablet RxNorm: 386947 Take 1 Tablet(s) Oral TID 01/08/20 22 022 Inactive d/c PRN order Lyrica 150 mg capsule RxNorm: 279303 Take 1 Capsule(s) Oral QHS every night at bedtime 01/08/20 22 023 Inactive d/c 100mg dose Abilify 5 mg tablet RxNorm: 282217 Take 1 Tablet(s) Oral QD take 1 tab po QD #30 refill 5 dx: MDD 12/12/19 22 022 Inactive Abilify 5 mg tablet RxNorm: 687931 Take 1 Tablet(s) Oral QD take 1 tab po QD #30 refill 5 dx: MDD 12/12/19 22 022 Inactive Novolog Flexpen U-100 Insulin aspart 100 unit/mL (3 mL) subcutaneous RxNorm: 7878346 Inject 42 Unit(s) Subcutaneous TID in addition to sliding scale 12/10/19 22 022 Inactive d/c 36u chlorthalidone 25 mg tablet RxNorm: 177794 Take 1 Tablet(s) Oral QAM every morning 12/10/19 22 023 Inactive pregabalin 50 mg capsule RxNorm: 208040 Take 1 Capsule(s) Oral QAM every morning 11/12/19 22 022 Inactive tetanus-diphtheria toxoids-Td 2 Lf unit-2 Lf unit/0.5 mL IM suspension RxNorm: 139 Take 0.5 Miscellaneous Intramuscular 11/12/19 22 022 Inactive need tdap - nursing to administer upon arrival pregabalin 50 mg capsule RxNorm: 856119 Take 1 Capsule(s) Oral QAM every morning 10/16/19 22 022 Inactive pregabalin 50 mg capsule RxNorm: 938841 Take 1 Capsule(s) Oral QAM every morning 10/16/19 22 022 Inactive pregabalin 50 mg capsule RxNorm: 731719 1 Capsule(s) Oral QAM every morning 10/15/19 22 022 Inactive Shingrix (PF) 50 mcg/0.5 mL intramuscular suspension, kit RxNorm: 0895003 Administer 1/2 Milliliter(s) Intramuscular one time Nursing please administer upon arrival and once administered post a bridge message with date of administration, 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, expiration date, and lot# so we can update [facility]. 10/09/19 22 022 Inactive shingrix step 1 Shingrix (PF) 50 mcg/0.5 mL intramuscular suspension, kit RxNorm: 0626581 Administer 1/2 Milliliter(s) Intramuscular one time Nursing please administer upon arrival and once administered post a bridge message with date of administration, 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, expiration date, and lot# so we can update [facility]. 10/09/19 22 022 Inactive shingrix step 1 cholecalciferol (vitamin D3) 1,250 mcg (50,000 unit) capsule RxNorm: 264868 Take 1 Capsule(s) Oral QW once a [...] aspart 100 unit/mL (3 mL) subcutaneous RxNorm: 3681556 Inject 10 Unit(s) Subcutaneous QHS every night at bedtime with nighttime snack 10/08/19 22 Inactive Shingrix (PF) 50 mcg/0.5 mL intramuscular suspension, kit RxNorm: 0836265 ADMINISTER 2-DOSE SERIES PER CDC GUIDELINES 10/08/19 22 Active Shingrix (PF) 50 mcg/0.5 mL intramuscular suspension, kit RxNorm: 5643326 ADMINISTER 2-DOSE SERIES PER CDC GUIDELINES 10/08/19 22 Inactive Novolog Flexpen U-100 Insulin aspart 100 unit/mL (3 mL) subcutaneous RxNorm: 2581721 Inject 36 Unit(s) Subcutaneous TID in addition to sliding scale 10/08/19 22 Inactive Novofine Autocover 30 gauge x 1/3 needle RxNorm: Use 1 Miscellaneous UD as directed Use 1 needle as directed to administer insulin 5 times a day Dx:E11.42. 10/03/19 22 Inactive ok to substitute with any covered alternative pen needle benzoyl peroxide 10 % topical cleanser RxNorm: 802847 Apply 1 Application Topical QD apply to face, wash rinse and dry once daily (may change to QOD if drying) 08/19/19 22 022 Inactive (%covered by insurance) #60ml refill 11 dx: acne benzoyl peroxide 10 % topical cleanser RxNorm: 323289 Apply 1 Application Topical QD apply to face, wash rinse and dry once daily (may change to QOD if drying) 08/19/19 22 022 Inactive (%covered by insurance) #60ml refill 11 dx: acne benzoyl peroxide 10 % topical cleanser RxNorm: 133388 Apply 1 Application Topical QD apply to face, wash rinse and dry once daily (may change to QOD if drying) 08/19/19 22 022 Inactive (%covered by insurance) #60ml refill 11 dx: acne Lyrica 50 mg capsule RxNorm: 573387 Take 1 Capsule(s) Oral QAM every morning Take 1 capsule by mouth once daily 08/19/19 22 022 Inactive benzoyl peroxide 10 % topical cleanser RxNorm: 268887 Apply 1 Application Topical QD apply to face, wash rinse and dry once daily (may change to QOD if drying) 08/19/19 22 Inactive (%covered by insurance) #60ml refill 11 dx: acne Lyrica 100 mg capsule RxNorm: 400891 Take 1 Capsule(s) Oral QHS every night at bedtime Take 1 capsule by mouth once daily at bedtime 08/19/19 22 022 Inactive Lyrica 100 mg capsule RxNorm: 753138 Take 1 Capsule(s) Oral QHS every night at bedtime Take 1 capsule by mouth once daily at bedtime 08/16/19 22 Inactive Lyrica 50 mg capsule RxNorm: 410404 Take 1 Capsule(s) Oral QAM every morning Take 1 capsule by mouth once daily 08/16/19 22 Inactive Levemir FlexTouch U-100 Insulin 100 unit/mL (3 mL) subcutaneous pen RxNorm: 087043 Inject 86 Unit(s) Subcutaneous BID 08/05/19 22 022 Inactive d/c 83units BID Lyrica 100 mg capsule RxNorm: 215834 Take 1 Capsule(s) Oral QHS every night at bedtime Take 1 capsule by mouth once daily at bedtime 07/14/19 22 022 Inactive Lyrica 50 mg capsule RxNorm: 641750 Take 1 Capsule(s) Oral QAM every morning Take 1 capsule by mouth once daily 07/14/19 22 022 Inactive Levemir FlexTouch U-100 Insulin 100 unit/mL (3 mL) subcutaneous pen RxNorm: 386122 Inject 83 Unit(s) Subcutaneous BID 07/08/19 22 022 Inactive d/c 80units BID Accu-Chek Guide Glucose Meter RxNorm: Use 1 Miscellaneous UD as directed Use glucose meter to monitor blood glucose 4 times daily and as needed. Dx:E11.42 06/05/19 22 Inactive ok to substitute with [...] 30 mg tablet,extended release 24 hr RxNorm: 596289 Take 1 Tablet(s) Oral QD 05/05/20 21 024 Inactive hydralazine 50 mg tablet RxNorm: 482774 Take 1 Tablet(s) Oral QID 05/05/20 21 022 Inactive venlafaxine ER 225 mg tablet,extended release 24 hr RxNorm: 578234 Take 1 Tablet(s) Oral QD 05/05/20 21 021 Inactive venlafaxine ER 225 mg tablet,extended release 24 hr RxNorm: 930336 Take 1 Tablet(s) Oral QD 05/05/20 21 022 Inactive hydralazine 50 mg tablet RxNorm: 331378 Take 1 Tablet(s) Oral QID 05/05/20 21 021 Inactive aspirin 81 mg tablet,delayed release RxNorm: 004661 Take 1 Tablet(s) Oral QD 03/31/20 022 Inactive Zetia 10 mg tablet RxNorm: 922868 Take 1 Tablet(s) Oral QD 03/31/20 024 Inactive Vitamin D2 1,250 mcg (50,000 unit) capsule RxNorm: 2923607 Take 1 Capsule(s) Oral QW once a week x 12 weeks 03/31/20 022 Inactive Vitamin D2 1,250 mcg (50,000 unit) capsule RxNorm: 6463100 Take 1 Capsule(s) Oral QW once a week 03/31/20 021 Inactive Zetia 10 mg tablet RxNorm: 220704 Take 1 Tablet(s) Oral QD 03/31/20 Inactive hydralazine 25 mg tablet RxNorm: 192320 Take 1 Tablet(s) Oral QID 03/31/20 021 Inactive hydralazine 25 mg tablet RxNorm: 640954 Take 1 Tablet(s) Oral QID 03/31/20 021 Inactive hydralazine 10 mg tablet RxNorm: 289033 Take 1 Tablet(s) Oral QID 03/03/20 021 Inactive cephalexin 500 mg tablet RxNorm: 923065 Take 1 Tablet(s) Oral QID 02/27/20 021 Inactive cephalexin 500 mg tablet RxNorm: 976767 Take 1 Tablet(s) Oral QID 02/27/20 021 Inactive lisinopril 40 mg tablet RxNorm: 020849 Take 1 Tablet(s) Oral QD 02/11/20 023 Inactive Eliquis 5 mg tablet RxNorm: 7441639 Take 1 Tablet(s) Oral BID 01/05/20 022 Inactive Eliquis 5 mg tablet RxNorm: 3937751 Take 2 Tablet(s) Oral QD 01/01/20 21 021 Inactive Lyrica 50 mg capsule RxNorm: 505146 Take 1 Capsule(s) Oral QAM every morning 12/24/19 21 021 Inactive Lyrica 100 mg capsule RxNorm: 999875 Take 1 Capsule(s) Oral QHS every night at bedtime 12/24/19 21 021 Inactive clotrimazole 1 % topical cream RxNorm: 968433 Apply to right foot and toes Topical BID 12/04/19 21 023 Inactive metoprolol succinate ER 200 mg tablet,extended release 24 hr RxNorm: 150530 Take 1 Tablet(s) Oral QD 12/04/19 21 023 Inactive ciprofloxacin 500 mg tablet RxNorm: 512335 Take 1 Tablet(s) Oral QD 11/30/19 21 021 Inactive DX ofloxacin otic drops Accu-Chek Guide test strips RxNorm: USE 1 TO CHECK GLUCOSE 4 TIMES DAILY AND NEEDED 11/15/19 21 023 Inactive Blood Glucose Test strips RxNorm: Use 1 Test Strip QID at PRN 11/05/19 21 023 Inactive E11.42 lisinopril 30 mg tablet RxNorm: 046340 Take 1 Tablet(s) Oral QD 10/30/19 021 Inactive lisinopril 20 mg tablet RxNorm: 886605 Take 1 Tablet(s) Oral QD 10/23/19 21 021 Inactive lisinopril 20 mg tablet RxNorm: 061190 Take 1 Tablet(s) Oral QD 10/23/19 21 021 Inactive lisinopril 10 mg tablet RxNorm: 135641 Take 1 Tablet(s) Oral QD 10/02/19 21 021 Inactive icosapent ethyl 1 gram capsule RxNorm: 7647760 Take 2 Capsule(s) (2 gm) Oral BID with meals 09/12/19 21 024 Inactive Okay to dispense one 2gm tab if you have that available. icosapent ethyl 1 gram capsule RxNorm: 6725159 Take 2 Capsule(s) Oral BID 09/12/19 21 021 Inactive Okay to dispense one 2gm tab if you have that available. amlodipine 10 mg tablet RxNorm: 976946 Take 1 Tablet(s) Oral QD 09/04/19 21 022 Inactive aspirin 81 mg tablet,delayed release RxNorm: 199128 Take 1 Tablet(s) Oral QD 09/04/19 21 Inactive Levemir FlexTouch U-100 Insulin 100 unit/mL (3 mL) subcutaneous pen RxNorm: 975549 Inject 150 Unit(s) Subcutaneous BID 09/04/19 21 022 Inactive venlafaxine ER 150 mg tablet,extended release 24 hr RxNorm: 493116 Take 1 Tablet(s) Oral QD 09/04/19 Inactive clotrimazole-betame thasone 1 %-0.05 % topical cream RxNorm: 611222 Apply to rash on red area on left abdomen/chest Topical BID 08/10/19 21 Inactive amlodipine 5 mg tablet RxNorm: 117361 Take 1 Tablet(s) Oral QD 07/31/19 Inactive cephalexin 500 mg tablet RxNorm: 524288 Take 1 Tablet(s) Oral BID BID - Twice Daily 07/31/19 021 Inactive Start 08/01/20 pantoprazole 40 mg tablet,delayed release RxNorm: 837963 Take 1 Tablet(s) Oral QAM every morning 07/08/19 022 Inactive senna 8.6 mg tablet RxNorm: 089541 Take 1 Tablet(s) Oral QD 07/08/19 022 Inactive carbamazepine 200 mg tablet RxNorm: 191272 Take 1 Tablet(s) Oral BID 07/08/19 022 Inactive clopidogrel 75 mg tablet RxNorm: 391958 Take 1 Tablet(s) Oral QD 07/08/19 021 Inactive Blood Glucose Test strips RxNorm: Use 1 Test Strip QID at PRN 07/08/19 21 021 Inactive E11.42 Novolog Flexpen U-100 Insulin aspart 100 unit/mL (3 mL) subcutaneous RxNorm: 5930547 Administer per sliding scale Milliliter(s) Subcutaneous TID 151-200: 10 u; 201-250: 20 u; 251-300: 30 u; 301-350: 40 u; 351-400: 50 u. 07/08/19 21 022 Inactive lisinopril 5 mg tablet RxNorm: 417869 Take 1 Tablet(s) Oral QD 07/08/19 021 Inactive Novolog Flexpen U-100 Insulin aspart 100 unit/mL (3 mL) subcutaneous RxNorm: 5164290 Inject 85 Unit(s) Subcutaneous TID 07/08/19 022 Inactive pravastatin 80 mg tablet RxNorm: 005830 Take 1 Tablet(s) Oral QHS every night at bedtime 07/08/19 023 Inactive clotrimazole 1 % topical cream RxNorm: 781349 Apply to bilateral groin areas Topical BID 07/08/19 022 Inactive metoprolol succinate ER 200 mg tablet,extended release 24 hr RxNorm: 987771 Take 1 Tablet(s) Oral QD 07/08/19 021 Inactive Vitamin D3 25 mcg (1,000 unit) tablet RxNorm: 271338 Take 1 Tablet(s) Oral QD 07/08/19 021 Inactive isosorbide dinitrate 30 mg tablet RxNorm: 043474 Take 1 Tablet(s) Oral QD 07/08/19 21 021 Inactive Levemir FlexTouch U-100 Insulin 100 unit/mL (3 mL) subcutaneous pen RxNorm: 812736 Inject 140 Unit(s) Subcutaneous BID 07/08/19 021 Inactive torsemide 20 mg tablet RxNorm: 619612 Take 1 Tablet(s) Oral QD 07/08/19 023 Inactive venlafaxine 75 mg tablet RxNorm: 838973 Take 1 Tablet(s) Oral QD 07/08/19 021 Inactive acetaminophen 500 mg tablet RxNorm: 889303 Take 1 Tablet(s) Oral TID as needed for headache 06/18/19 021 Inactive acetaminophen 500 mg tablet RxNorm: 405108 Take 1 Tablet(s) Oral TID as needed for headache 06/18/19 021 Inactive Lyrica 100 mg capsule RxNorm: 281962 Take 1 Capsule(s) Oral QHS every night at bedtime 06/11/19 021 Inactive Lyrica 50 mg capsule RxNorm: 827143 Take 1 Capsule(s) Oral QAM every morning 06/10/19 21 021 Inactive hydrocortisone 2.5 % topical cream RxNorm: 153879 Apply to bilateral groin creases Topical BID 05/15/20 20 021 Inactive clotrimazole 1 % topical cream RxNorm: 919586 Apply to bilateral groin areas Topical BID 05/15/20 20 Inactive Lyrica 50 mg capsule RxNorm: 624809 Take 1 Capsule(s) Oral QAM every morning 05/14/20 20 Inactive Lyrica 100 mg capsule RxNorm: 947600 Take 1 Capsule(s) Oral QHS every night [...] Inactive Nystop 100,000 unit/gram topical powder RxNorm: 254203 Apply to abd folds, under breasts and L side of groin Topical BID x 14 days, then BID PRN 04/08/20 20 020 Inactive dx: yeast dermatitis Lyrica 100 mg capsule RxNorm: 083656 Take 1 Capsule(s) Oral QHS every night at bedtime 03/13/20 20 020 Inactive Lyrica 50 mg capsule RxNorm: 578305 Take 1 Capsule(s) Oral QAM every morning 03/13/20 20 10/28/2 020 Inactive ketoconazole 2 % shampoo RxNorm: 276316 Apply Topical two times a week with showers 03/11/20 20 Inactive cholecalciferol (vitamin D3) 50 mcg (2,000 unit) tablet RxNorm: 328745 Take 1 Tablet(s) Oral QD 03/11/20 20 021 Inactive Zetia 10 mg tablet RxNorm: 882807 Take 1 Tablet(s) Oral QD 03/07/20 20 Inactive Zetia 10 mg tablet RxNorm: 858984 Take 1 Tablet(s) Oral QD 03/07/20 20 Inactive Lyrica 50 mg capsule RxNorm: 914842 Take 1 Capsule(s) Oral QAM every morning 02/15/20 20 Inactive Lyrica 100 mg capsule RxNorm: 100914 Take 1 Capsule(s) Oral QHS every night at bedtime 02/15/20 Inactive Lyrica 100 mg capsule RxNorm: 593635 Take 1 Capsule(s) Oral QHS every night at bedtime 02/15/20 20 Inactive Lyrica 50 mg capsule RxNorm: 132589 Take 1 Capsule(s) Oral QAM every morning 02/15/20 20 Inactive metoprolol succinate ER 200 mg tablet,extended release 24 hr RxNorm: 192767 Take 1 Tablet(s) Oral QD 08/12/19 23 Active loperamide 2 mg capsule RxNorm: 503392 Take 1 Capsule(s) Oral QID as needed 06/12/19 22 Active hydralazine 50 mg tablet RxNorm: 123863 Take 1 Tablet(s) Oral QID 08/12/19 23 Active venlafaxine ER 75 mg capsule,extended release 24 hr RxNorm: 666622 Take 3 Capsule(s) Oral QD 06/12/19 22 023 Inactive polyethylene glycol 3350 17 gram/dose oral powder RxNorm: 712306 Take 17=1 capful Gram(s) Oral BID as needed mix with 4-8oz of liquid 06/12/19 22 024 Inactive icosapent ethyl 1 gram capsule RxNorm: 0643144 Take 2 Capsule(s) (2 gm) Oral BID with meals 10/07/19 23 023 Inactive Okay to dispense one 2gm tab if you have that available. Levemir FlexTouch U-100 Insulin 100 unit/mL (3 mL) subcutaneous pen RxNorm: 055033 Inject 80 Unit(s) Subcutaneous BID 07/14/19 23 023 Inactive Novolog Flexpen U-100 Insulin aspart 100 unit/mL (3 mL) subcutaneous RxNorm: 6725632 Insert 30 Unit(s) Subcutaneous TID with meals 10/08/19 22 022 Inactive Medication Administered No Medication Administered data Reason For Visit No Reason For Visit data Plan of Care Planned Activity Notes Codes Status Date Referral: [facility] WPtel: [phone], [address] [id number] [place] Referral Records Received 09/21/2022 Referral: [facility] WPtel: [id number] [employer] [address] [id number] [place] Referral Completed 05/28/2021 Referral: General Cardiology Referral Complet ed 01/03/2021 Referral: General Psychologist Referral Close d Referral: General Psychiatrist Referral Patient/Family Scheduling Appointment Instructions Comment Date Leonid is a Male being seen living at [facility]. Initial [facility] visit 01/2020. PMHx including DMII, CAD w/ 5 stents, Depression, Seizure Disorder and CKD stage 3. He moved into [facility] in 12/2019 but after a hospitalization 05/2021 he moved to the [facility] to have closer nursing attention. Sister Jyotsna involved in his care cell# [phone] Guardian: Don (tapan met in person 09/01/21), now has Lexii (same group as don)Lab Schedule: Mar-/September*September (CBC with diff, CMP, A1c) (Novemebr: CBC, CMP, A1c, Lipids, VitD) 10/08/2023
--- OUTSIDE RECORDS SUMMARY | 2023-07-06 19:00 | XMS_ITS | CCD ---
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 Finance Vice President Name Role Phone Arpitmichelle MCKINLEY-[facility] Primary Care Provider Leona vailable [place] [facility] U navailable Summary Purpose DataExchange Insurance Providers Payer name Policy type / Coverage type Covered republican ID Effective Begin Date Effective End Date [place] [id number] Unknown Unknown [place] Medicare Part B [id number] Unknown Unknown Family history Sister Brittany Suggs [...] Fpc 09/03/[address]: 1824049 Non-Smoker / No History of Smoking 09/02/[address]: 167154027 No Alcohol Consum ption 09/02/2020 Allergies, Adverse Reactions, Alerts Substance Reaction Codes Entered Date Inactivated Date Status LISINOPRIL RxNorm: 52962 02/12/2020 No Inactive Da te Active Metformin [...] 05/04/2023 Active Coronary artery disease invo lving [place] coronary artery of [place] heart, angina presence unspecified ICD-10: I25.10 ICD-9: [...] F33. 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 Radha Enrique U-100 Insulin 100 unit/mL (3 mL) subcutaneous RxNorm: 5020710 Inject 30U SubQ twice daily 07/07/19 24 025 Active Please dispense one month supply. pregabalin 150 mg capsule RxNorm: 990544 Take 1 Capsule(s) Oral QHS every night at bedtime 07/05/19 24 024 Active pregabalin 150 mg capsule RxNorm: 201835 Take 1 Capsule(s) Oral QHS every night at bedtime 07/05/19 24 024 Inactive polyethylene glycol 3350 17 gram/dose oral powder RxNorm: 402126 Take 1 Packet Oral QD as needed (1 packet = 17g) mix with 4-8oz of liquid 06/15/19 24 024 Inactive bisacodyl 10 mg rectal suppository RxNorm: 195528 Insert one suppository per rectum once daily as needed for constipation 06/15/19 24 024 Inactive bisacodyl 10 mg rectal suppository RxNorm: 441129 Insert one suppository per rectum once daily as needed for constipation 06/15/19 24 024 Inactive pregabalin 100 mg capsule RxNorm: 293130 Take 1 Capsule(s) Oral QAM every morning 04/27/20 23 024 Inactive Levemir FlexPen 100 unit/mL (3 mL) solution subcutaneous insulin pen RxNorm: 244019 Inject 30 Unit(s) Subcutaneous BID 04/27/20 23 024 Inactive rosuvastatin 40 mg tablet RxNorm: 215165 Take 1 Tablet(s) Oral QPM every evening 04/16/20 23 024 Inactive D/C rosuvastatin 20mg venlafaxine ER 75 mg capsule,extended release 24 hr RxNorm: 124810 Take 3 Capsule(s) Oral QD 04/14/20 23 023 Inactive pregabalin 100 mg capsule RxNorm: 370123 Take 1 Capsule(s) Oral QAM every morning [...] meter clotrimazole 1 % topical cream RxNorm: 320981 Take apply topically to abdominal folds twice daily for 14 days 03/12/20 024 Inactive Ozempic 1 mg/dose (4 mg/3 mL) subcutaneous pen injector RxNorm: 7643023 Inject 1 Milligram(s) Subcutaneous QW once a week 03/11/20 023 Inactive rosuvastatin 20 mg tablet RxNorm: 067986 Take 1 Tablet(s) Oral QD 02/26/20 023 Inactive d/c pravastatin 80mg Ozempic 1 mg/dose (4 mg/3 mL) subcutaneous pen injector RxNorm: 0591457 Inject 1 Milligram(s) Subcutaneous QW once a week 02/20/20 023 Inactive pregabalin 150 mg capsule RxNorm: 777548 Take 1 Capsule(s) Oral HS at bed time 02/19/20 23 023 Inactive pregabalin 100 mg capsule RxNorm: 304359 Take 1 Capsule(s) Oral QAM every morning 02/18/20 23 023 Inactive FreeStyle Chema 2 Sensor kit RxNorm: use as directed 02/04/20 23 024 Inactive venlafaxine ER 75 mg capsule,extended release 24 hr RxNorm: 058514 Take 3 Capsule(s) Oral QD 02/04/20 23 023 Inactive FreeStyle Chema 2 Sensor kit RxNorm: use as directed 02/04/20 23 023 Inactive fluconazole 150 mg tablet RxNorm: 643998 Take 1 Tablet(s) Oral on day 3 and on day 6 09/19 024 Active chlorthalidone 25 mg tablet RxNorm: 076299 Take 1 Tablet(s) Oral QAM every morning 02/03/20 No Stop Date Active venlafaxine ER 150 mg capsule,extended release 24 hr RxNorm: 348089 Take 1 Capsule(s) Oral QD 02/03/20 023 Inactive acetaminophen 500 mg tablet RxNorm: 053252 1 TABLET ORALLY 3 TIMES DAILY (MAX APAP:4GM/24HR) 12/15/19 023 Inactive potassium chloride ER 20 mEq tablet,extended release RxNorm: 662297 Take 1 Tablet(s) Oral BID 12/09/19 024 Inactive d/c 20mEq once daily (sent from hospital) clotrimazole 1 % topical cream RxNorm: 327852 apply 1g topically to top of feet and in between toes BID 12/09/19 23 023 Inactive nystatin 100,000 unit/gram topical powder RxNorm: 914487 APPLY TO AFFECTED AREAS TOPICALLY 2 TIMES DAILY 11/21/19 23 024 Inactive Nystop 100,000 unit/gram topical powder RxNorm: 770785 Apply to abd folds, under breasts and L side of groin Topical BID x 14 days, then BID PRN 11/20/19 023 Inactive dx: yeast dermatitis [place] Ultra Strength 4 %-30 %-10 % topical cream RxNorm: 725602 Apply 1 Gram(s) Topical QID PRN to feet and legs for neuropathic pain 11/11/19 024 Active hydrocortisone 2.5 % topical cream RxNorm: 500829 Apply 1/2 Gram(s) Topical BID as needed 11/10/19 23 024 Inactive clotrimazole 1 % topical cream RxNorm: 872638 Apply 1/2 Gram(s) Topical BID Apply to affected areas of groin, periarea, and abdominal topically 2 times daily 11/10/19 23 023 Inactive Humulin R U-500 (Concentrated) Insulin 500 unit/mL subcutaneous soln RxNorm: 130302 Inject 100 Unit(s) Subcutaneous TID 10/07/19 23 024 Inactive Ozempic 0.25 mg or 0.5 mg (2 mg/3 mL) subcutaneous pen injector RxNorm: 1162489 Inject 1/2 Milligram(s) Subcutaneous QW once a week 10/07/19 024 Inactive Levemir FlexPen 100 unit/mL (3 mL) solution subcutaneous insulin pen RxNorm: 387659 Inject 30 Unit(s) Subcutaneous BID 10/07/19 023 Inactive aripiprazole 15 mg tablet RxNorm: 386555 1/2 TAB (7.5MG) ORALLY DAILY (DX:MAJOR DEPRESSIVE DISORDER) 09/23/19 023 Inactive Lancets,Thin 28 gauge RxNorm: Use 1 as directed QID 09/15/19 024 Inactive Accu-Chek Guide test strips RxNorm: Use 1 Test Strip QID 09/15/19 023 Inactive ok to substitute with any covered alternative test strip torsemide 20 mg tablet RxNorm: 734666 Take 1 Tablet(s) Oral BID 09/09/19 024 Inactive d/c once daily dosing carvedilol 25 mg tablet RxNorm: 234466 Take 1 Tablet(s) Oral QD 08/25/19 024 Inactive pregabalin 150 mg capsule RxNorm: 591058 1 Capsule(s) Oral HS at bed time 08/18/19 023 Inactive pregabalin 100 mg capsule RxNorm: 662431 1 Capsule(s) Oral QAM every morning 08/18/19 023 Inactive carvedilol 25 mg tablet RxNorm: 716992 1 Tablet(s) Oral QD 07/28/19 023 Inactive lisinopril 20 mg tablet RxNorm: 497380 Give 1 Tablet(s) Oral QD 07/28/19 023 Inactive Lyrica 150 mg capsule RxNorm: 925991 Take 1 Capsule(s) Oral QHS every night at bedtime 07/19/19 023 Inactive d/c 100mg dose Diflucan 150 mg tablet RxNorm: 488905 Take 1 Tablet(s) Oral QD repeat on day 3 and 6 07/19/19 23 023 Inactive pregabalin 100 mg capsule RxNorm: 767060 Take 1 Capsule(s) Oral QAM every morning 07/19/19 23 023 Inactive gatifloxacin 0.5 % eye drops RxNorm: 876775 Instill 1 Drop(s) as directed TID Instill 1 drop in to affected eye(s) starting 1 day prior to surgery and continue until gone (do not exceed 4 weeks). 07/13/19 23 023 Inactive carvedilol 25 mg tablet RxNorm: 865626 2 Tablet(s) Oral BID 07/13/19 23 023 Inactive Humulin R Regular U-100 Insulin 100 unit/mL injection solution RxNorm: 570084 85 Unit(s) Injection TID 07/13/19 23 023 Inactive ketorolac 0.5 % eye drops RxNorm: 221015 Instill 1 Drop(s) as directed QID Instill 1 drop into affected eye(s) 4 times daily starting 1 day prior to surgery and continue until gone (do not exceed 4 weeks). 07/13/19 23 023 Inactive Diflucan 150 mg tablet RxNorm: 958637 Take 1 Tablet(s) Oral QD repeat on day 3 and 6 06/30/19 23 023 Inactive Accu-Chek Guide test strips RxNorm: Use 1 Test Strip QID Use 1 test strip to monitor blood glucose 4 times daily and as needed. Dx:E11.42. 06/23/19 23 023 Inactive ok to substitute with any covered alternative test strip dextromethorphan-gu aifenesin 10 mg-100 mg/5 mL oral liquid RxNorm: 077393 Take 10 Milliliter(s) Oral every 4 hours as needed for cough 06/19/19 23 023 Inactive dextromethorphan-gu aifenesin 10 mg-100 mg/5 mL oral liquid RxNorm: 233149 Take 10 Milliliter(s) Oral every 4 hours as needed for cough 06/19/19 23 023 Inactive Lyrica 150 mg capsule RxNorm: 253771 Take 1 Capsule(s) Oral QHS every night at bedtime 06/18/19 023 Inactive d/c 100mg dose aripiprazole 15 mg tablet RxNorm: 227178 1/2 TAB (7.5MG) ORALLY DAILY (DX:MAJOR DEPRESSIVE DISORDER) 06/05/19 023 Inactive pregabalin 100 mg capsule RxNorm: 481019 1 Capsule(s) Oral QAM every morning 06/02/19 023 Inactive Banophen 50 mg capsule RxNorm: 9405743 Take 1 Capsule(s) Oral Q6H every 6 hours as needed 05/19/19 No Stop Date Active Novolog Flexpen U-100 Insulin aspart 100 unit/mL (3 mL) subcutaneous RxNorm: 0644112 Inject 10 Unit(s) Subcutaneous QHS every night at bedtime with nighttime snack 04/08/20 022 Inactive Novolog Flexpen U-100 Insulin aspart 100 unit/mL (3 mL) subcutaneous RxNorm: 0834276 Inject 42 Unit(s) Subcutaneous TID in addition to sliding scale 04/08/20 022 Inactive d/c 36u albuterol sulfate HFA 90 mcg/actuation aerosol inhaler RxNorm: 7399020 Take 2 Puff(s) Inhalation Q4H every four hours as needed as needed for SOB, cough, or wheezing 04/07/20 030 Active Banophen 50 mg capsule RxNorm: 2074470 Take 1 Capsule(s) Oral Q6H every 6 hours as needed 04/06/20 023 Inactive diphenhydramine 50 mg tablet RxNorm: 1316572 Take 1 Tablet(s) Oral Q6H every 6 hours as needed 04/06/20 22 022 Inactive diphenhydramine 50 mg tablet RxNorm: 2582403 1 Tablet(s) Oral Q6H every 6 hours as needed 04/06/20 22 022 Inactive Abilify 15 mg tablet RxNorm: 615634 1/2 Tablet(s) Oral QD 03/10/20 22 023 Inactive Shingrix (PF) 50 mcg/0.5 mL intramuscular suspension, kit RxNorm: 2137424 Administer 1/2 Milliliter(s) Intramuscular QD one time shingrix step 2 ( step 1 given 11/04/21) WITH needle - Nursing please administer upon arrival and once administered post a bridge message with date of administration, glass setter, expiration date, and lot# so we can update [facility] 02/18/20 22 022 Inactive dispense with needle Shingrix (PF) 50 mcg/0.5 mL intramuscular suspension, kit RxNorm: 3229038 Administer 1/2 Milliliter(s) Intramuscular QD one time shingrix step 2 ( step 1 given 11/04/21) WITH needle - Nursing please administer upon arrival and once administered post a bridge message with date of administration, glass setter, expiration date, and lot# so we can update [facility] 02/18/20 22 022 Inactive dispense with needle polyethylene glycol 3350 17 gram/dose oral powder RxNorm: 067974 Take 17=1 capful Gram(s) Oral QD mix with 4-8oz of liquid 01/08/20 22 023 Inactive take this in addition to BID prn order Lyrica 100 mg capsule RxNorm: 095065 Take 1 Capsule(s) Oral QAM every morning 01/08/20 22 022 Inactive d/c 50mg dose acetaminophen 500 mg tablet RxNorm: 575224 Take 1 Tablet(s) Oral TID 01/08/20 22 022 Inactive d/c PRN order Lyrica 150 mg capsule RxNorm: 416500 Take 1 Capsule(s) Oral QHS every night at bedtime 01/08/20 22 023 Inactive d/c 100mg dose Abilify 5 mg tablet RxNorm: 464909 Take 1 Tablet(s) Oral QD take 1 tab po QD #30 refill 5 dx: MDD 12/12/19 22 022 Inactive Abilify 5 mg tablet RxNorm: 883916 Take 1 Tablet(s) Oral QD take 1 tab po QD #30 refill 5 dx: MDD 12/12/19 22 022 Inactive Novolog Flexpen U-100 Insulin aspart 100 unit/mL (3 mL) subcutaneous RxNorm: 6940680 Inject 42 Unit(s) Subcutaneous TID in addition to sliding scale 12/10/19 22 022 Inactive d/c 36u chlorthalidone 25 mg tablet RxNorm: 134419 Take 1 Tablet(s) Oral QAM every morning 12/10/19 22 023 Inactive pregabalin 50 mg capsule RxNorm: 006147 Take 1 Capsule(s) Oral QAM every morning 11/12/19 22 022 Inactive tetanus-diphtheria toxoids-Td 2 Lf unit-2 Lf unit/0.5 mL IM suspension RxNorm: 139 Take 0.5 Miscellaneous Intramuscular 11/12/19 22 022 Inactive need tdap - nursing to administer upon arrival pregabalin 50 mg capsule RxNorm: 363752 Take 1 Capsule(s) Oral QAM every morning 10/16/19 22 022 Inactive pregabalin 50 mg capsule RxNorm: 644997 Take 1 Capsule(s) Oral QAM every morning 10/16/19 22 022 Inactive pregabalin 50 mg capsule RxNorm: 970164 1 Capsule(s) Oral QAM every morning 10/15/19 22 022 Inactive Shingrix (PF) 50 mcg/0.5 mL intramuscular suspension, kit RxNorm: 4232131 Administer 1/2 Milliliter(s) Intramuscular one time Nursing please administer upon arrival and once administered post a bridge message with date of administration, glass setter, expiration date, and lot# so we can update [facility]. 10/09/19 22 022 Inactive shingrix step 1 Shingrix (PF) 50 mcg/0.5 mL intramuscular suspension, kit RxNorm: 7883823 Administer 1/2 Milliliter(s) Intramuscular one time Nursing please administer upon arrival and once administered post a bridge message with date of administration, glass setter, expiration date, and lot# so we can update [facility]. 10/09/19 22 022 Inactive shingrix step 1 cholecalciferol (vitamin D3) 1,250 mcg (50,000 unit) capsule RxNorm: 769553 Take 1 Capsule(s) Oral QW once a [...] aspart 100 unit/mL (3 mL) subcutaneous RxNorm: 2640634 Inject 10 Unit(s) Subcutaneous QHS every night at bedtime with nighttime snack 10/08/19 22 Inactive Shingrix (PF) 50 mcg/0.5 mL intramuscular suspension, kit RxNorm: 7823927 ADMINISTER 2-DOSE SERIES PER CDC GUIDELINES 10/08/19 22 Active Shingrix (PF) 50 mcg/0.5 mL intramuscular suspension, kit RxNorm: 1249711 ADMINISTER 2-DOSE SERIES PER CDC GUIDELINES 10/08/19 22 Inactive Novolog Flexpen U-100 Insulin aspart 100 unit/mL (3 mL) subcutaneous RxNorm: 0364604 Inject 36 Unit(s) Subcutaneous TID in addition to sliding scale 10/08/19 22 Inactive Novofine Autocover 30 gauge x 1/3 needle RxNorm: Use 1 Miscellaneous UD as directed Use 1 needle as directed to administer insulin 5 times a day Dx:E11.42. 10/03/19 Inactive ok to substitute with any covered alternative pen needle benzoyl peroxide 10 % topical cleanser RxNorm: 541832 Apply 1 Application Topical QD apply to face, wash rinse and dry once daily (may change to QOD if drying) 08/19/19 22 022 Inactive (%covered by insurance) #60ml refill 11 dx: acne benzoyl peroxide 10 % topical cleanser RxNorm: 587574 Apply 1 Application Topical QD apply to face, wash rinse and dry once daily (may change to QOD if drying) 08/19/19 22 022 Inactive (%covered by insurance) #60ml refill 11 dx: acne benzoyl peroxide 10 % topical cleanser RxNorm: 979269 Apply 1 Application Topical QD apply to face, wash rinse and dry once daily (may change to QOD if drying) 08/19/19 22 022 Inactive (%covered by insurance) #60ml refill 11 dx: acne Lyrica 50 mg capsule RxNorm: 655521 Take 1 Capsule(s) Oral QAM every morning Take 1 capsule by mouth once daily 08/19/19 22 022 Inactive benzoyl peroxide 10 % topical cleanser RxNorm: 228345 Apply 1 Application Topical QD apply to face, wash rinse and dry once daily (may change to QOD if drying) 08/19/19 22 022 Inactive (%covered by insurance) #60ml refill 11 dx: acne Lyrica 100 mg capsule RxNorm: 152652 Take 1 Capsule(s) Oral QHS every night at bedtime Take 1 capsule by mouth once daily at bedtime 08/19/19 22 022 Inactive Lyrica 100 mg capsule RxNorm: 467572 Take 1 Capsule(s) Oral QHS every night at bedtime Take 1 capsule by mouth once daily at bedtime 08/16/19 22 Inactive Lyrica 50 mg capsule RxNorm: 974611 Take 1 Capsule(s) Oral QAM every morning Take 1 capsule by mouth once daily 08/16/19 22 022 Inactive Levemir FlexTouch U-100 Insulin 100 unit/mL (3 mL) subcutaneous pen RxNorm: 217508 Inject 86 Unit(s) Subcutaneous BID 08/05/19 22 022 Inactive d/c 83units BID Lyrica 100 mg capsule RxNorm: 342052 Take 1 Capsule(s) Oral QHS every night at bedtime Take 1 capsule by mouth once daily at bedtime 07/14/19 22 022 Inactive Lyrica 50 mg capsule RxNorm: 835476 Take 1 Capsule(s) Oral QAM every morning Take 1 capsule by mouth once daily 07/14/19 22 022 Inactive Levemir FlexTouch U-100 Insulin 100 unit/mL (3 mL) subcutaneous pen RxNorm: 864442 Inject 83 Unit(s) Subcutaneous BID 07/08/19 22 [...] 30 mg tablet,extended release 24 hr RxNorm: 859877 Take 1 Tablet(s) Oral QD 05/05/20 21 024 Inactive hydralazine 50 mg tablet RxNorm: 599415 Take 1 Tablet(s) Oral QID 05/05/20 21 022 Inactive venlafaxine ER 225 mg tablet,extended release 24 hr RxNorm: 206862 Take 1 Tablet(s) Oral QD 05/05/20 21 021 Inactive venlafaxine ER 225 mg tablet,extended release 24 hr RxNorm: 018825 Take 1 Tablet(s) Oral QD 05/05/20 022 Inactive hydralazine 50 mg tablet RxNorm: 691569 Take 1 Tablet(s) Oral QID 05/05/20 21 021 Inactive aspirin 81 mg tablet,delayed release RxNorm: 329016 Take 1 Tablet(s) Oral QD 03/31/20 022 Inactive Zetia 10 mg tablet RxNorm: 792439 Take 1 Tablet(s) Oral QD 03/31/20 024 Inactive Vitamin D2 1,250 mcg (50,000 unit) capsule RxNorm: 7479196 Take 1 Capsule(s) Oral QW once a week x 12 weeks 03/31/20 022 Inactive Vitamin D2 1,250 mcg (50,000 unit) capsule RxNorm: 8218736 Take 1 Capsule(s) Oral QW once a week 03/31/20 021 Inactive Zetia 10 mg tablet RxNorm: 023140 Take 1 Tablet(s) Oral QD 03/31/20 021 Inactive hydralazine 25 mg tablet RxNorm: 796126 Take 1 Tablet(s) Oral QID 03/31/20 021 Inactive hydralazine 25 mg tablet RxNorm: 772046 Take 1 Tablet(s) Oral QID 03/31/20 021 Inactive hydralazine 10 mg tablet RxNorm: 564278 Take 1 Tablet(s) Oral QID 03/03/20 021 Inactive cephalexin 500 mg tablet RxNorm: 354996 Take 1 Tablet(s) Oral QID 02/27/20 021 Inactive cephalexin 500 mg tablet RxNorm: 904165 Take 1 Tablet(s) Oral QID 02/27/20 021 Inactive lisinopril 40 mg tablet RxNorm: 638390 Take 1 Tablet(s) Oral QD 02/11/20 21 023 Inactive Eliquis 5 mg tablet RxNorm: 2805222 Take 1 Tablet(s) Oral BID 01/05/20 21 022 Inactive Eliquis 5 mg tablet RxNorm: 9805020 Take 2 Tablet(s) Oral QD 01/01/20 21 021 Inactive Lyrica 50 mg capsule RxNorm: 849381 Take 1 Capsule(s) Oral QAM every morning 12/24/19 021 Inactive Lyrica 100 mg capsule RxNorm: 871057 Take 1 Capsule(s) Oral QHS every night at bedtime 12/24/19 021 Inactive clotrimazole 1 % topical cream RxNorm: 470079 Apply to right foot and toes Topical BID 12/04/19 21 023 Inactive metoprolol succinate ER 200 mg tablet,extended release 24 hr RxNorm: 021456 Take 1 Tablet(s) Oral QD 12/04/19 023 Inactive ciprofloxacin 500 mg tablet RxNorm: 539010 Take 1 Tablet(s) Oral QD 11/30/19 021 Inactive DX ofloxacin otic drops Accu-Chek Guide test strips RxNorm: USE 1 TO CHECK GLUCOSE 4 TIMES DAILY AND NEEDED 11/15/19 21 023 Inactive Blood Glucose Test strips RxNorm: Use 1 Test Strip QID at PRN 11/05/19 21 023 Inactive E11.42 lisinopril 30 mg tablet RxNorm: 813046 Take 1 Tablet(s) Oral QD 10/30/19 021 Inactive lisinopril 20 mg tablet RxNorm: 618877 Take 1 Tablet(s) Oral QD 10/23/19 021 Inactive lisinopril 20 mg tablet RxNorm: 632131 Take 1 Tablet(s) Oral QD 10/23/19 21 021 Inactive lisinopril 10 mg tablet RxNorm: 182724 Take 1 Tablet(s) Oral QD 10/02/19 21 021 Inactive icosapent ethyl 1 gram capsule RxNorm: 9726205 Take 2 Capsule(s) (2 gm) Oral BID with meals 04/28/ 024 Inactive Okay to dispense one 2gm tab if you have that available. icosapent ethyl 1 gram capsule RxNorm: 5548169 Take 2 Capsule(s) Oral BID 09/12/19 21 021 Inactive Okay to dispense one 2gm tab if you have that available. amlodipine 10 mg tablet RxNorm: 611583 Take 1 Tablet(s) Oral QD 09/04/19 022 Inactive aspirin 81 mg tablet,delayed release RxNorm: 455835 Take 1 Tablet(s) Oral QD 09/04/19 21 021 Inactive Levemir FlexTouch U-100 Insulin 100 unit/mL (3 mL) subcutaneous pen RxNorm: 458159 Inject 150 Unit(s) Subcutaneous BID 09/04/19 022 Inactive venlafaxine ER 150 mg tablet,extended release 24 hr RxNorm: 103690 Take 1 Tablet(s) Oral QD 09/04/19 021 Inactive clotrimazole-betame thasone 1 %-0.05 % topical cream RxNorm: 013675 Apply to rash on red area on left abdomen/chest Topical BID 08/10/19 21 Inactive amlodipine 5 mg tablet RxNorm: 579341 Take 1 Tablet(s) Oral QD 07/31/19 21 021 Inactive cephalexin 500 mg tablet RxNorm: 942383 Take 1 Tablet(s) Oral BID BID - Twice Daily 07/31/19 021 Inactive Start 08/01/20 pantoprazole 40 mg tablet,delayed release RxNorm: 199772 Take 1 Tablet(s) Oral QAM every morning 07/08/19 022 Inactive senna 8.6 mg tablet RxNorm: 710253 Take 1 Tablet(s) Oral QD 07/08/19 022 Inactive carbamazepine 200 mg tablet RxNorm: 512225 Take 1 Tablet(s) Oral BID 07/08/19 022 Inactive clopidogrel 75 mg tablet RxNorm: 452384 Take 1 Tablet(s) Oral QD 07/08/19 021 Inactive Blood Glucose Test strips RxNorm: Use 1 Test Strip QID at PRN 07/08/19 21 021 Inactive E11.42 Novolog Flexpen U-100 Insulin aspart 100 unit/mL (3 mL) subcutaneous RxNorm: 0415654 Administer per sliding scale Milliliter(s) Subcutaneous TID 151-200: 10 u; 201-250: 20 u; 251-300: 30 u; 301-350: 40 u; 351-400: 50 u. 07/08/19 21 022 Inactive lisinopril 5 mg tablet RxNorm: 496678 Take 1 Tablet(s) Oral QD 07/08/19 21 021 Inactive Novolog Flexpen U-100 Insulin aspart 100 unit/mL (3 mL) subcutaneous RxNorm: 7329036 Inject 85 Unit(s) Subcutaneous TID 07/08/19 022 Inactive pravastatin 80 mg tablet RxNorm: 882800 Take 1 Tablet(s) Oral QHS every night at bedtime 07/08/19 023 Inactive clotrimazole 1 % topical cream RxNorm: 867548 Apply to bilateral groin areas Topical BID 07/08/19 022 Inactive metoprolol succinate ER 200 mg tablet,extended release 24 hr RxNorm: 085221 Take 1 Tablet(s) Oral QD 07/08/19 21 021 Inactive Vitamin D3 25 mcg (1,000 unit) tablet RxNorm: 360702 Take 1 Tablet(s) Oral QD 07/08/19 021 Inactive isosorbide dinitrate 30 mg tablet RxNorm: 419785 Take 1 Tablet(s) Oral QD 07/08/19 021 Inactive Levemir FlexTouch U-100 Insulin 100 unit/mL (3 mL) subcutaneous pen RxNorm: 852279 Inject 140 Unit(s) Subcutaneous BID 07/08/19 21 021 Inactive torsemide 20 mg tablet RxNorm: 189656 Take 1 Tablet(s) Oral QD 07/08/19 21 023 Inactive venlafaxine 75 mg tablet RxNorm: 826420 Take 1 Tablet(s) Oral QD 07/08/19 21 021 Inactive acetaminophen 500 mg tablet RxNorm: 202828 Take 1 Tablet(s) Oral TID as needed for headache 06/18/19 21 021 Inactive acetaminophen 500 mg tablet RxNorm: 135533 Take 1 Tablet(s) Oral TID as needed for headache 06/18/19 21 021 Inactive Lyrica 100 mg capsule RxNorm: 822532 Take 1 Capsule(s) Oral QHS every night at bedtime 06/11/19 21 021 Inactive Lyrica 50 mg capsule RxNorm: 988106 Take 1 Capsule(s) Oral QAM every morning 06/10/19 21 021 Inactive hydrocortisone 2.5 % topical cream RxNorm: 792779 Apply to bilateral groin creases Topical BID 05/15/20 20 021 Inactive clotrimazole 1 % topical cream RxNorm: 299082 Apply to bilateral groin areas Topical BID 05/15/20 20 021 Inactive Lyrica 50 mg capsule RxNorm: 776284 Take 1 Capsule(s) Oral QAM every morning 05/14/20 20 020 Inactive Lyrica 100 mg capsule RxNorm: 694523 Take 1 Capsule(s) Oral QHS every night [...] Inactive Nystop 100,000 unit/gram topical powder RxNorm: 106687 Apply to abd folds, under breasts and L side of groin Topical BID x 14 days, then BID PRN 04/08/20 20 Inactive dx: yeast dermatitis Lyrica 100 mg capsule RxNorm: 786813 Take 1 Capsule(s) Oral QHS every night at bedtime 03/13/20 20 Inactive Lyrica 50 mg capsule RxNorm: 199807 Take 1 Capsule(s) Oral QAM every morning 03/13/20 20 Inactive ketoconazole 2 % shampoo RxNorm: 916406 Apply Topical two times a week with showers 03/11/20 20 Inactive cholecalciferol (vitamin D3) 50 mcg (2,000 unit) tablet RxNorm: 331936 Take 1 Tablet(s) Oral QD 03/11/20 20 Inactive Zetia 10 mg tablet RxNorm: 048065 Take 1 Tablet(s) Oral QD 03/07/20 20 Inactive Zetia 10 mg tablet RxNorm: 159227 Take 1 Tablet(s) Oral QD 03/07/20 20 Inactive Lyrica 50 mg capsule RxNorm: 996561 Take 1 Capsule(s) Oral QAM every morning 02/15/20 20 Inactive Lyrica 100 mg capsule RxNorm: 668303 Take 1 Capsule(s) Oral QHS every night at bedtime 02/15/20 20 Inactive Lyrica 100 mg capsule RxNorm: 969785 Take 1 Capsule(s) Oral QHS every night at bedtime 02/15/20 20 Inactive Lyrica 50 mg capsule RxNorm: 263058 Take 1 Capsule(s) Oral QAM every morning 02/15/20 20 Inactive metoprolol succinate ER 200 mg tablet,extended release 24 hr RxNorm: 449166 Take 1 Tablet(s) Oral QD 08/12/19 Active loperamide 2 mg capsule RxNorm: 174796 Take 1 Capsule(s) Oral QID as needed 06/12/19 Active hydralazine 50 mg tablet RxNorm: 179129 Take 1 Tablet(s) Oral QID 08/12/19 23 Active venlafaxine ER 75 mg capsule,extended release 24 hr RxNorm: 210801 Take 3 Capsule(s) Oral QD 06/12/19 22 023 Inactive polyethylene glycol 3350 17 gram/dose oral powder RxNorm: 376207 Take 17=1 capful Gram(s) Oral BID as needed mix with 4-8oz of liquid 06/12/19 22 024 Inactive icosapent ethyl 1 gram capsule RxNorm: 9336406 Take 2 Capsule(s) (2 gm) Oral BID with meals 10/07/19 23 023 Inactive Okay to dispense one 2gm tab if you have that available. Levemir FlexTouch U-100 Insulin 100 unit/mL (3 mL) subcutaneous pen RxNorm: 290197 Inject 80 Unit(s) Subcutaneous BID 07/14/19 23 023 Inactive Novolog Flexpen U-100 Insulin aspart 100 unit/mL (3 mL) subcutaneous RxNorm: 7497193 Insert 30 Unit(s) Subcutaneous TID with meals 10/08/19 22 022 Inactive Medication Administered No Medication Administered data Reason For Visit No Reason For Visit data Plan of Care Planned Activity Notes Codes Status Date Referral: [facility] [phone] [address] [id number] [place] Referral Records Received 09/21/2022 Referral: [facility] WPtel: [phone] [id number] [place] Referral Completed 05/28/2021 Referral: General Cardiology [...] Sister Jyotsna involved in his care cell# [phone] Guardian: Giulia (tapan met in person 09/01/21), now has Lexii (same group as giulia)Lab Schedule: /September*September (CBC with diff, CMP, A1c) (Novemebr: CBC, CMP, A1c, Lipids, VitD) 10/08/2023
--- OUTSIDE RECORDS SUMMARY | 2023-07-18 19:00 | XMS_ITS | CCD ---
Author Name Alissa Zheng MD her Address [address] [place] [address] Phone Organization [facility] Phone Care Team Providers Care Geological Scout Name Role Phone Arpit MCKINLEY-[facility] Primary Care Provider Leona vailable Arpit ENVIRONMENTAL MARKETER[facility] Chronic Care Management U navailable Summary Purpose DataExchange Insurance Providers Payer name Policy type / Coverage type Covered green party ID Effective Begin Date Effective End Date [place] Medicare Part B [id number] Unknown Unknown [place] Medicare Part B [id number] Unknown Unknown Family history Sister Brittany Suggs [...] Usp 09/03/[address]: 4814771 Non-Smoker / No History of Smoking 09/02/[address]: 270263187 No Alcohol Consum ption 09/02/2020 Allergies, Adverse Reactions, Alerts Substance Reaction Codes Entered Date Inactivated Date Status * NO KNOWN FOOD ALLERGIES Unknown 07/13/2023 No Inactive Date Active LISINOPRIL RxNorm: 72906 02/12/2020 No Inactive Da te Active Metformin HCl Unknown 02/12/2020 No Inactive Cristiano e Active * NO KNOWN ENVIRONMENTAL ALLERGIES Unknown 07/13/2023 No Inactive Date Active Problems Condition Codes Effective Dates Condition St atus Coronary artery disease invo lving [place] coronary artery of [place] heart, angina presence unspecified ICD-10: I25.10 ICD-9: 414.01 07/15/2023 Active Major depression, recurrent ICD-10: F33. 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 [...] Fill Instructions rosuvastatin 40 mg tablet RxNorm: 449969 Take 1 Tablet(s) Oral QPM every evening 07/13/19 24 No Stop Date Active ezetimibe 10 mg tablet RxNorm: 735040 Take 1 Tablet(s) Oral QD 07/13/19 24 No Stop Date Active bisacodyl 10 mg rectal suppository RxNorm: 800548 Insert 1 Suppository Rectal QD as needed 07/13/19 24 No Stop Date Active polyethylene glycol 3350 17 gram/dose oral powder RxNorm: 690618 Take 17 Gram(s) Oral BID as needed mix in 4-8ox water 07/13/19 24 No Stop Date Active ketoconazole 2 % shampoo RxNorm: 238918 Apply 1 Application Topical UD as directed 07/13/19 24 No Stop Date Active aripiprazole 15 mg tablet RxNorm: 003061 Take 1/2 Tablet(s) Oral QD 07/13/19 24 No Stop Date Active Ozempic 1 mg/dose (4 mg/3 mL) subcutaneous pen injector RxNorm: 8362877 Inject 1 Milligram(s) Subcutaneous QW once a week 07/13/19 24 No Stop Date Active Guaifenesin AC 10 mg-100 mg/5 mL oral liquid RxNorm: 538286 Take 10 Milliliter(s) Oral Q4H every four hours as needed 07/13/19 24 No Stop Date Active isosorbide mononitrate ER 60 mg tablet,extended release 24 hr RxNorm: 938040 Take 1 Tablet(s) Oral QD 07/13/19 24 No Stop Date Active ammonium lactate 12 % topical cream RxNorm: 996200 Apply 1 Application Topical BID 07/13/19 24 No Stop Date Active hydrocortisone 2.5 % topical cream RxNorm: 215552 Apply 1 Application Topical BID as needed 07/13/19 24 No Stop Date Active rosuvastatin 20 mg sprinkle capsule RxNorm: 8402883 Take 1 Capsule(s) Oral QD 07/13/19 24 No Stop Date Active Vascepa 1 gram capsule RxNorm: 0462516 Take 2 Capsule(s) Oral BID 07/13/19 24 No Stop Date Active venlafaxine ER 75 mg capsule,extended release 24 hr RxNorm: 554942 Take 3 Capsule(s) Oral QD 07/13/19 24 No Stop Date Active Basaglar KwikPen U-100 Insulin 100 unit/mL (3 mL) subcutaneous RxNorm: 2167322 Inject 30U SubQ twice daily 07/07/19 24 025 Active Please dispense one month supply. Basaglar KwikPen U-100 Insulin 100 unit/mL (3 mL) subcutaneous RxNorm: 7561911 Inject 30U SubQ twice daily 07/07/19 24 024 Inactive Please dispense one month supply. pregabalin 150 mg capsule RxNorm: 366769 Take 1 Capsule(s) Oral QHS every night at bedtime 07/05/19 24 024 Active pregabalin 150 mg capsule RxNorm: 766550 Take 1 Capsule(s) Oral QHS every night at bedtime 07/05/19 24 024 Inactive polyethylene glycol 3350 17 gram/dose oral powder RxNorm: 278412 Take 1 Packet Oral QD as needed (1 packet = 17g) mix with 4-8oz of liquid 06/15/19 24 024 Inactive bisacodyl 10 mg rectal suppository RxNorm: 983641 Insert one suppository per rectum once daily as needed for constipation 06/15/19 24 024 Inactive bisacodyl 10 mg rectal suppository RxNorm: 936096 Insert one suppository per rectum once daily as needed for constipation 06/15/19 24 024 Inactive pregabalin 100 mg capsule RxNorm: 936527 Take 1 Capsule(s) Oral QAM every morning 04/27/20 23 024 Inactive Levemir FlexPen 100 unit/mL (3 mL) solution subcutaneous insulin pen RxNorm: 939181 Inject 30 Unit(s) Subcutaneous BID 04/27/20 23 024 Inactive rosuvastatin 40 mg tablet RxNorm: 593634 Take 1 Tablet(s) Oral QPM every evening 12/01/20 23 02/26/2 024 Inactive D/C rosuvastatin 20mg venlafaxine ER 75 mg capsule,extended release 24 hr RxNorm: 623553 Take 3 Capsule(s) Oral QD 04/14/20 023 Inactive pregabalin 100 mg capsule RxNorm: 980482 Take 1 Capsule(s) Oral QAM every morning [...] meter clotrimazole 1 % topical cream RxNorm: 290970 Take apply topically to abdominal folds twice daily for 14 days 03/12/20 024 Inactive Ozempic 1 mg/dose (4 mg/3 mL) subcutaneous pen injector RxNorm: 2669283 Inject 1 Milligram(s) Subcutaneous QW once a week 03/11/20 023 Inactive rosuvastatin 20 mg tablet RxNorm: 081036 Take 1 Tablet(s) Oral QD 02/26/20 023 Inactive d/c pravastatin 80mg Ozempic 1 mg/dose (4 mg/3 mL) subcutaneous pen injector RxNorm: 0012144 Inject 1 Milligram(s) Subcutaneous QW once a week 02/20/20 23 023 Inactive pregabalin 150 mg capsule RxNorm: 078774 Take 1 Capsule(s) Oral HS at bed time 02/19/20 23 023 Inactive pregabalin 100 mg capsule RxNorm: 882919 Take 1 Capsule(s) Oral QAM every morning 02/18/20 023 Inactive venlafaxine ER 75 mg capsule,extended release 24 hr RxNorm: 613692 Take 3 Capsule(s) Oral QD 09/20/ 023 Inactive FreeStyle Chema 2 Sensor kit RxNorm: use as directed 02/04/20 23 023 Inactive FreeStyle Chema 2 Sensor kit RxNorm: use as directed 02/04/20 024 Inactive fluconazole 150 mg tablet RxNorm: 396223 Take 1 Tablet(s) Oral on day 3 and on day 6 02/03/20 024 Active chlorthalidone 25 mg tablet RxNorm: 353972 Take 1 Tablet(s) Oral QAM every morning 02/03/20 No Stop Date Active venlafaxine ER 150 mg capsule,extended release 24 hr RxNorm: 367342 Take 1 Capsule(s) Oral QD 02/03/20 023 Inactive acetaminophen 500 mg tablet RxNorm: 996691 1 TABLET ORALLY 3 TIMES DAILY (MAX APAP:4GM/24HR) 12/15/19 23 023 Inactive potassium chloride ER 20 mEq tablet,extended release RxNorm: 081417 Take 1 Tablet(s) Oral BID 12/09/19 024 Inactive d/c 20mEq once daily (sent from hospital) clotrimazole 1 % topical cream RxNorm: 893408 apply 1g topically to top of feet and in between toes BID 12/09/19 23 023 Inactive nystatin 100,000 unit/gram topical powder RxNorm: 598110 APPLY TO AFFECTED AREAS TOPICALLY 2 TIMES DAILY 11/21/19 23 024 Inactive Nystop 100,000 unit/gram topical powder RxNorm: 590674 Apply to abd folds, under breasts and L side of groin Topical BID x 14 days, then BID PRN 11/20/19 23 023 Inactive dx: yeast dermatitis Bengay Ultra Strength 4 %-30 %-10 % topical cream RxNorm: 615096 Apply 1 Gram(s) Topical QID PRN to feet and legs for neuropathic pain 11/11/19 23 024 Active hydrocortisone 2.5 % topical cream RxNorm: 109999 Apply 1/2 Gram(s) Topical BID as needed 11/10/19 23 024 Inactive clotrimazole 1 % topical cream RxNorm: 676117 Apply 1/2 Gram(s) Topical BID Apply to affected areas of groin, periarea, and abdominal topically 2 times daily 11/10/19 23 023 Inactive Humulin R U-500 (Concentrated) Insulin 500 unit/mL subcutaneous soln RxNorm: 202723 Inject 100 Unit(s) Subcutaneous TID 10/07/19 024 Inactive Levemir FlexPen 100 unit/mL (3 mL) solution subcutaneous insulin pen RxNorm: 687829 Inject 30 Unit(s) Subcutaneous BID 10/07/19 023 Inactive Ozempic 0.25 mg or 0.5 mg (2 mg/3 mL) subcutaneous pen injector RxNorm: 4143175 Inject 1/2 Milligram(s) Subcutaneous QW once a week 10/07/19 024 Inactive aripiprazole 15 mg tablet RxNorm: 051853 1/2 TAB (7.5MG) ORALLY DAILY (DX:MAJOR DEPRESSIVE DISORDER) 09/23/19 023 Inactive Lancets,Thin 28 gauge RxNorm: Use 1 as directed QID 09/15/19 23 024 Inactive Accu-Chek Guide test strips RxNorm: Use 1 Test Strip QID 09/15/19 23 023 Inactive ok to substitute with any covered alternative test strip torsemide 20 mg tablet RxNorm: 059308 Take 1 Tablet(s) Oral BID 09/09/19 024 Inactive d/c once daily dosing carvedilol 25 mg tablet RxNorm: 187488 Take 1 Tablet(s) Oral QD 08/25/19 23 024 Inactive pregabalin 150 mg capsule RxNorm: 868587 1 Capsule(s) Oral HS at bed time 08/18/19 023 Inactive pregabalin 100 mg capsule RxNorm: 442283 1 Capsule(s) Oral QAM every morning 08/18/19 023 Inactive carvedilol 25 mg tablet RxNorm: 315289 1 Tablet(s) Oral QD 07/28/19 23 023 Inactive lisinopril 20 mg tablet RxNorm: 492245 Give 1 Tablet(s) Oral QD 07/28/19 23 023 Inactive Lyrica 150 mg capsule RxNorm: 162866 Take 1 Capsule(s) Oral QHS every night at bedtime 07/19/19 23 023 Inactive d/c 100mg dose Diflucan 150 mg tablet RxNorm: 950680 Take 1 Tablet(s) Oral QD repeat on day 3 and 6 07/19/19 23 023 Inactive pregabalin 100 mg capsule RxNorm: 288564 Take 1 Capsule(s) Oral QAM every morning 07/19/19 23 023 Inactive gatifloxacin 0.5 % eye drops RxNorm: 234941 Instill 1 Drop(s) as directed TID Instill 1 drop in to affected eye(s) starting 1 day prior to surgery and continue until gone (do not exceed 4 weeks). 07/13/19 23 023 Inactive carvedilol 25 mg tablet RxNorm: 363526 2 Tablet(s) Oral BID 07/13/19 23 023 Inactive Humulin R Regular U-100 Insulin 100 unit/mL injection solution RxNorm: 348475 85 Unit(s) Injection TID 07/13/19 23 023 Inactive ketorolac 0.5 % eye drops RxNorm: 255883 Instill 1 Drop(s) as directed QID Instill 1 drop into affected eye(s) 4 times daily starting 1 day prior to surgery and continue until gone (do not exceed 4 weeks). 07/13/19 23 023 Inactive Diflucan 150 mg tablet RxNorm: 303745 Take 1 Tablet(s) Oral QD repeat on day 3 and 6 06/30/19 23 023 Inactive Accu-Chek Guide test strips RxNorm: Use 1 Test Strip QID Use 1 test strip to monitor blood glucose 4 times daily and as needed. Dx:E11.42. 06/23/19 23 023 Inactive ok to substitute with any covered alternative test strip dextromethorphan-gu aifenesin 10 mg-100 mg/5 mL oral liquid RxNorm: 192693 Take 10 Milliliter(s) Oral every 4 hours as needed for cough 06/19/19 023 Inactive dextromethorphan-gu aifenesin 10 mg-100 mg/5 mL oral liquid RxNorm: 365197 Take 10 Milliliter(s) Oral every 4 hours as needed for cough 06/19/19 023 Inactive Lyrica 150 mg capsule RxNorm: 562551 Take 1 Capsule(s) Oral QHS every night at bedtime 06/18/19 023 Inactive d/c 100mg dose aripiprazole 15 mg tablet RxNorm: 505716 / TAB (7.5MG) ORALLY DAILY (DX:MAJOR DEPRESSIVE DISORDER) 06/05/19 023 Inactive pregabalin 100 mg capsule RxNorm: 194323 1 Capsule(s) Oral QAM every morning 06/02/19 023 Inactive Banophen 50 mg capsule RxNorm: 4478824 Take 1 Capsule(s) Oral Q6H every 6 hours as needed 05/19/19 23 No Stop Date Active Novolog Flexpen U-100 Insulin aspart 100 unit/mL (3 mL) subcutaneous RxNorm: 9436819 Inject 10 Unit(s) Subcutaneous QHS every night at bedtime with nighttime snack 04/08/20 022 Inactive Novolog Flexpen U-100 Insulin aspart 100 unit/mL (3 mL) subcutaneous RxNorm: 3829664 Inject 42 Unit(s) Subcutaneous TID in addition to sliding scale 04/08/20 022 Inactive d/c 36u albuterol sulfate HFA 90 mcg/actuation aerosol inhaler RxNorm: 9479964 Take 2 Puff(s) Inhalation Q4H every four hours as needed as needed for SOB, cough, or wheezing 04/07/20 030 Active Banophen 50 mg capsule RxNorm: 6689361 Take 1 Capsule(s) Oral Q6H every 6 hours as needed 04/06/20 023 Inactive diphenhydramine 50 mg tablet RxNorm: 6421537 Take 1 Tablet(s) Oral Q6H every 6 hours as needed 04/06/20 22 022 Inactive diphenhydramine 50 mg tablet RxNorm: 2749923 1 Tablet(s) Oral Q6H every 6 hours as needed 04/06/20 22 022 Inactive Abilify 15 mg tablet RxNorm: 926151 1/2 Tablet(s) Oral QD 03/10/20 22 023 Inactive Shingrix (PF) 50 mcg/0.5 mL intramuscular suspension, kit RxNorm: 1978443 Administer 1/2 Milliliter(s) Intramuscular QD one time shingrix step 2 ( step 1 given 11/04/21) WITH needle - Nursing please administer upon arrival and once administered post a bridge message with date of administration, senior account manager, expiration date, and lot# so we can update [facility] 02/18/20 22 022 Inactive dispense with needle Shingrix (PF) 50 mcg/0.5 mL intramuscular suspension, kit RxNorm: 3533101 Administer 1/2 Milliliter(s) Intramuscular QD one time shingrix step 2 ( step 1 given 11/04/21) WITH needle - Nursing please administer upon arrival and once administered post a bridge message with date of administration, senior account manager, expiration date, and lot# so we can update [facility] 02/18/20 22 022 Inactive dispense with needle polyethylene glycol 3350 17 gram/dose oral powder RxNorm: 063456 Take 17=1 capful Gram(s) Oral QD mix with 4-8oz of liquid 01/08/20 22 023 Inactive take this in addition to BID prn order Lyrica 100 mg capsule RxNorm: 959260 Take 1 Capsule(s) Oral QAM every morning 01/08/20 22 022 Inactive d/c 50mg dose acetaminophen 500 mg tablet RxNorm: 083026 Take 1 Tablet(s) Oral TID 01/08/20 22 022 Inactive d/c PRN order Lyrica 150 mg capsule RxNorm: 402497 Take 1 Capsule(s) Oral QHS every night at bedtime 01/08/20 22 023 Inactive d/c 100mg dose Abilify 5 mg tablet RxNorm: 023143 Take 1 Tablet(s) Oral QD take 1 tab po QD #30 refill 5 dx: MDD 12/12/19 22 022 Inactive Abilify 5 mg tablet RxNorm: 139502 Take 1 Tablet(s) Oral QD take 1 tab po QD #30 refill 5 dx: MDD 12/12/19 22 022 Inactive Novolog Flexpen U-100 Insulin aspart 100 unit/mL (3 mL) subcutaneous RxNorm: 4515496 Inject 42 Unit(s) Subcutaneous TID in addition to sliding scale 12/10/19 22 Inactive d/c 36u chlorthalidone 25 mg tablet RxNorm: 269785 Take 1 Tablet(s) Oral QAM every morning 12/10/19 22 023 Inactive pregabalin 50 mg capsule RxNorm: 712990 Take 1 Capsule(s) Oral QAM every morning 11/12/19 22 022 Inactive tetanus-diphtheria toxoids-Td 2 Lf unit-2 Lf unit/0.5 mL IM suspension RxNorm: 139 Take 0.5 Miscellaneous Intramuscular 11/12/19 22 022 Inactive need tdap - nursing to administer upon arrival pregabalin 50 mg capsule RxNorm: 997093 Take 1 Capsule(s) Oral QAM every morning 10/16/19 22 022 Inactive pregabalin 50 mg capsule RxNorm: 604790 Take 1 Capsule(s) Oral QAM every morning 10/16/19 22 022 Inactive pregabalin 50 mg capsule RxNorm: 378587 1 Capsule(s) Oral QAM every morning 10/15/19 22 022 Inactive Shingrix (PF) 50 mcg/0.5 mL intramuscular suspension, kit RxNorm: 9331817 Administer 1/2 Milliliter(s) Intramuscular one time Nursing please administer upon arrival and once administered post a bridge message with date of administration, senior account manager, expiration date, and lot# so we can update [facility]. 10/09/19 22 022 Inactive shingrix step 1 Shingrix (PF) 50 mcg/0.5 mL intramuscular suspension, kit RxNorm: 3833299 Administer 1/2 Milliliter(s) Intramuscular one time Nursing please administer upon arrival and once administered post a bridge message with date of administration, senior account manager, expiration date, and lot# so we can update [facility]. 10/09/19 22 Inactive shingrix step 1 cholecalciferol (vitamin D3) 1,250 mcg (50,000 unit) capsule RxNorm: 916566 Take 1 Capsule(s) Oral QW once a [...] aspart 100 unit/mL (3 mL) subcutaneous RxNorm: 0159822 Inject 10 Unit(s) Subcutaneous QHS every night at bedtime with nighttime snack 10/08/19 22 Inactive Shingrix (PF) 50 mcg/0.5 mL intramuscular suspension, kit RxNorm: 5185677 ADMINISTER 2-DOSE SERIES PER CDC GUIDELINES 10/08/19 22 Active Shingrix (PF) 50 mcg/0.5 mL intramuscular suspension, kit RxNorm: 8864321 ADMINISTER 2-DOSE SERIES PER CDC GUIDELINES 10/08/19 22 Inactive Novolog Flexpen U-100 Insulin aspart 100 unit/mL (3 mL) subcutaneous RxNorm: 1848098 Inject 36 Unit(s) Subcutaneous TID in addition to sliding scale 10/08/19 22 Inactive Novofine Autocover 30 gauge x 1/3 needle RxNorm: Use 1 Miscellaneous UD as directed Use 1 needle as directed to administer insulin 5 times a day Dx:E11.42. 10/03/19 22 Inactive ok to substitute with any covered alternative pen needle benzoyl peroxide 10 % topical cleanser RxNorm: 358088 Apply 1 Application Topical QD apply to face, wash rinse and dry once daily (may change to QOD if drying) 08/19/19 22 022 Inactive (%covered by insurance) #60ml refill 11 dx: acne benzoyl peroxide 10 % topical cleanser RxNorm: 605031 Apply 1 Application Topical QD apply to face, wash rinse and dry once daily (may change to QOD if drying) 08/19/19 22 022 Inactive (%covered by insurance) #60ml refill 11 dx: acne benzoyl peroxide 10 % topical cleanser RxNorm: 589124 Apply 1 Application Topical QD apply to face, wash rinse and dry once daily (may change to QOD if drying) 08/19/19 22 022 Inactive (%covered by insurance) #60ml refill 11 dx: acne Lyrica 50 mg capsule RxNorm: 453420 Take 1 Capsule(s) Oral QAM every morning Take 1 capsule by mouth once daily 08/19/19 022 Inactive benzoyl peroxide 10 % topical cleanser RxNorm: 823632 Apply 1 Application Topical QD apply to face, wash rinse and dry once daily (may change to QOD if drying) 08/19/19 022 Inactive (%covered by insurance) #60ml refill 11 dx: acne Lyrica 100 mg capsule RxNorm: 467572 Take 1 Capsule(s) Oral QHS every night at bedtime Take 1 capsule by mouth once daily at bedtime 08/19/19 022 Inactive Lyrica 100 mg capsule RxNorm: 642062 Take 1 Capsule(s) Oral QHS every night at bedtime Take 1 capsule by mouth once daily at bedtime 08/16/19 022 Inactive Lyrica 50 mg capsule RxNorm: 566870 Take 1 Capsule(s) Oral QAM every morning Take 1 capsule by mouth once daily 08/16/19 Inactive Levemir FlexTouch U-100 Insulin 100 unit/mL (3 mL) subcutaneous pen RxNorm: 613282 Inject 86 Unit(s) Subcutaneous BID 08/05/19 22 022 Inactive d/c 83units BID Lyrica 100 mg capsule RxNorm: 864594 Take 1 Capsule(s) Oral QHS every night at bedtime Take 1 capsule by mouth once daily at bedtime 07/14/19 22 Inactive Lyrica 50 mg capsule RxNorm: 848208 Take 1 Capsule(s) Oral QAM every morning Take 1 capsule by mouth once daily 07/14/19 22 Inactive Levemir FlexTouch U-100 Insulin 100 unit/mL (3 mL) subcutaneous pen RxNorm: 206931 Inject 83 Unit(s) Subcutaneous BID 07/08/19 22 [...] test strip hydralazine 50 mg tablet RxNorm: 215078 Take 1 Tablet(s) Oral QID 05/05/20 21 022 Inactive venlafaxine ER 225 mg tablet,extended release 24 hr RxNorm: 303933 Take 1 Tablet(s) Oral QD 05/05/20 021 Inactive venlafaxine ER 225 mg tablet,extended release 24 hr RxNorm: 649722 Take 1 Tablet(s) Oral QD 05/05/20 022 Inactive isosorbide mononitrate ER 30 mg tablet,extended release 24 hr RxNorm: 265267 Take 1 Tablet(s) Oral QD 05/05/20 024 Inactive hydralazine 50 mg tablet RxNorm: 582262 Take 1 Tablet(s) Oral QID 05/05/20 Inactive aspirin 81 mg tablet,delayed release RxNorm: 339541 Take 1 Tablet(s) Oral QD 03/31/20 022 Inactive Vitamin D2 1,250 mcg (50,000 unit) capsule RxNorm: 5084986 Take 1 Capsule(s) Oral QW once a week x 12 weeks 03/31/20 022 Inactive Vitamin D2 1,250 mcg (50,000 unit) capsule RxNorm: 4697923 Take 1 Capsule(s) Oral QW once a week 03/31/20 021 Inactive Zetia 10 mg tablet RxNorm: 716678 Take 1 Tablet(s) Oral QD 03/31/20 024 Inactive Zetia 10 mg tablet RxNorm: 980720 Take 1 Tablet(s) Oral QD 03/31/20 021 Inactive hydralazine 25 mg tablet RxNorm: 329567 Take 1 Tablet(s) Oral QID 03/31/20 021 Inactive hydralazine 25 mg tablet RxNorm: 414968 Take 1 Tablet(s) Oral QID 03/31/20 021 Inactive hydralazine 10 mg tablet RxNorm: 621909 Take 1 Tablet(s) Oral QID 03/03/20 021 Inactive cephalexin 500 mg tablet RxNorm: 783982 Take 1 Tablet(s) Oral QID 02/27/20 21 021 Inactive cephalexin 500 mg tablet RxNorm: 913139 Take 1 Tablet(s) Oral QID 02/27/20 021 Inactive lisinopril 40 mg tablet RxNorm: 507416 Take 1 Tablet(s) Oral QD 02/11/20 023 Inactive Eliquis 5 mg tablet RxNorm: 1090229 Take 1 Tablet(s) Oral BID 01/05/20 21 022 Inactive Eliquis 5 mg tablet RxNorm: 7344968 Take 2 Tablet(s) Oral QD 01/01/20 21 021 Inactive Lyrica 50 mg capsule RxNorm: 359758 Take 1 Capsule(s) Oral QAM every morning 12/24/19 21 021 Inactive Lyrica 100 mg capsule RxNorm: 296217 Take 1 Capsule(s) Oral QHS every night at bedtime 12/24/19 021 Inactive clotrimazole 1 % topical cream RxNorm: 751203 Apply to right foot and toes Topical BID 12/04/19 21 023 Inactive metoprolol succinate ER 200 mg tablet,extended release 24 hr RxNorm: 256631 Take 1 Tablet(s) Oral QD 12/04/19 21 023 Inactive ciprofloxacin 500 mg tablet RxNorm: 309537 Take 1 Tablet(s) Oral QD 11/30/19 21 021 Inactive DX ofloxacin otic drops Accu-Chek Guide test strips RxNorm: USE 1 TO CHECK GLUCOSE 4 TIMES DAILY AND NEEDED 11/15/19 21 023 Inactive Blood Glucose Test strips RxNorm: Use 1 Test Strip QID at PRN 11/05/19 21 023 Inactive E11.42 lisinopril 30 mg tablet RxNorm: 248841 Take 1 Tablet(s) Oral QD 10/30/19 21 021 Inactive lisinopril 20 mg tablet RxNorm: 683367 Take 1 Tablet(s) Oral QD 10/23/19 21 021 Inactive lisinopril 20 mg tablet RxNorm: 638640 Take 1 Tablet(s) Oral QD 10/23/19 21 021 Inactive lisinopril 10 mg tablet RxNorm: 045566 Take 1 Tablet(s) Oral QD 10/02/19 21 021 Inactive icosapent ethyl 1 gram capsule RxNorm: 7667529 Take 2 Capsule(s) (2 gm) Oral BID with meals 09/12/19 024 Inactive Okay to dispense one 2gm tab if you have that available. icosapent ethyl 1 gram capsule RxNorm: 1266400 Take 2 Capsule(s) Oral BID 09/12/19 21 021 Inactive Okay to dispense one 2gm tab if you have that available. amlodipine 10 mg tablet RxNorm: 733048 Take 1 Tablet(s) Oral QD 09/04/19 21 022 Inactive aspirin 81 mg tablet,delayed release RxNorm: 591644 Take 1 Tablet(s) Oral QD 09/04/19 21 021 Inactive Levemir FlexTouch U-100 Insulin 100 unit/mL (3 mL) subcutaneous pen RxNorm: 827819 Inject 150 Unit(s) Subcutaneous BID 09/04/19 21 022 Inactive venlafaxine ER 150 mg tablet,extended release 24 hr RxNorm: 531026 Take 1 Tablet(s) Oral QD 09/04/19 21 021 Inactive clotrimazole-betame thasone 1 %-0.05 % topical cream RxNorm: 790780 Apply to rash on red area on left abdomen/chest Topical BID 08/10/19 21 021 Inactive amlodipine 5 mg tablet RxNorm: 446960 Take 1 Tablet(s) Oral QD 07/31/19 21 021 Inactive cephalexin 500 mg tablet RxNorm: 177661 Take 1 Tablet(s) Oral BID BID - Twice Daily 07/31/19 21 021 Inactive Start 08/01/20 pantoprazole 40 mg tablet,delayed release RxNorm: 921350 Take 1 Tablet(s) Oral QAM every morning 07/08/19 21 022 Inactive senna 8.6 mg tablet RxNorm: 662137 Take 1 Tablet(s) Oral QD 07/08/19 022 Inactive carbamazepine 200 mg tablet RxNorm: 742201 Take 1 Tablet(s) Oral BID 07/08/19 022 Inactive clopidogrel 75 mg tablet RxNorm: 376665 Take 1 Tablet(s) Oral QD 07/08/19 021 Inactive Blood Glucose Test strips RxNorm: Use 1 Test Strip QID at PRN 07/08/19 21 Inactive E11.42 Novolog Flexpen U-100 Insulin aspart 100 unit/mL (3 mL) subcutaneous RxNorm: 7008745 Administer per sliding scale Milliliter(s) Subcutaneous TID 151-200: 10 u; 201-250: 20 u; 251-300: 30 u; 301-350: 40 u; 351-400: 50 u. 07/08/19 022 Inactive lisinopril 5 mg tablet RxNorm: 520980 Take 1 Tablet(s) Oral QD 07/08/19 021 Inactive Novolog Flexpen U-100 Insulin aspart 100 unit/mL (3 mL) subcutaneous RxNorm: 5467404 Inject 85 Unit(s) Subcutaneous TID 07/08/19 022 Inactive pravastatin 80 mg tablet RxNorm: 171589 Take 1 Tablet(s) Oral QHS every night at bedtime 07/08/19 023 Inactive clotrimazole 1 % topical cream RxNorm: 398442 Apply to bilateral groin areas Topical BID 07/08/19 21 022 Inactive metoprolol succinate ER 200 mg tablet,extended release 24 hr RxNorm: 037120 Take 1 Tablet(s) Oral QD 07/08/19 021 Inactive Vitamin D3 25 mcg (1,000 unit) tablet RxNorm: 181403 Take 1 Tablet(s) Oral QD 07/08/19 21 021 Inactive isosorbide dinitrate 30 mg tablet RxNorm: 953692 Take 1 Tablet(s) Oral QD 07/08/19 21 021 Inactive Levemir FlexTouch U-100 Insulin 100 unit/mL (3 mL) subcutaneous pen RxNorm: 922751 Inject 140 Unit(s) Subcutaneous BID 07/08/19 21 021 Inactive torsemide 20 mg tablet RxNorm: 722488 Take 1 Tablet(s) Oral QD 07/08/19 21 023 Inactive venlafaxine 75 mg tablet RxNorm: 628505 Take 1 Tablet(s) Oral QD 07/08/19 21 021 Inactive acetaminophen 500 mg tablet RxNorm: 644616 Take 1 Tablet(s) Oral TID as needed for headache 06/18/19 21 021 Inactive acetaminophen 500 mg tablet RxNorm: Take 1 Tablet(s) Oral TID as needed for headache 06/18/19 21 021 Inactive Lyrica 100 mg capsule RxNorm: 875563 Take 1 Capsule(s) Oral QHS every night at bedtime 06/11/19 21 021 Inactive Lyrica 50 mg capsule RxNorm: 042925 Take 1 Capsule(s) Oral QAM every morning 06/10/19 21 021 Inactive hydrocortisone 2.5 % topical cream RxNorm: 614692 Apply to bilateral groin creases Topical BID 05/15/20 20 021 Inactive clotrimazole 1 % topical cream RxNorm: 977817 Apply to bilateral groin areas Topical BID 05/15/20 20 021 Inactive Lyrica 50 mg capsule RxNorm: 992616 Take 1 Capsule(s) Oral QAM every morning 05/14/20 20 020 Inactive Lyrica 100 mg capsule RxNorm: 785691 Take 1 Capsule(s) Oral QHS every night [...] Inactive Nystop 100,000 unit/gram topical powder RxNorm: 214689 Apply to abd folds, under breasts and L side of groin Topical BID x 14 days, then BID PRN 04/08/20 20 Inactive dx: yeast dermatitis Lyrica 100 mg capsule RxNorm: 246960 Take 1 Capsule(s) Oral QHS every night at bedtime 03/13/20 20 Inactive Lyrica 50 mg capsule RxNorm: 598979 Take 1 Capsule(s) Oral QAM every morning 03/13/20 20 Inactive ketoconazole 2 % shampoo RxNorm: 686898 Apply Topical two times a week with showers 03/11/20 20 Inactive cholecalciferol (vitamin D3) 50 mcg (2,000 unit) tablet RxNorm: 490549 Take 1 Tablet(s) Oral QD 03/11/20 20 021 Inactive Zetia 10 mg tablet RxNorm: 082071 Take 1 Tablet(s) Oral QD 03/07/20 20 021 Inactive Zetia 10 mg tablet RxNorm: 789789 Take 1 Tablet(s) Oral QD 03/07/20 20 Inactive Lyrica 50 mg capsule RxNorm: 885299 Take 1 Capsule(s) Oral QAM every morning 02/15/20 20 Inactive Lyrica 100 mg capsule RxNorm: 018578 Take 1 Capsule(s) Oral QHS every night at bedtime 02/15/20 20 Inactive Lyrica 100 mg capsule RxNorm: 016796 Take 1 Capsule(s) Oral QHS every night at bedtime 02/15/20 20 Inactive Lyrica 50 mg capsule RxNorm: 256101 Take 1 Capsule(s) Oral QAM every morning 02/15/20 20 10/01/2 020 Inactive metoprolol succinate ER 200 mg tablet,extended release 24 hr RxNorm: 190066 Take 1 Tablet(s) Oral QD 08/12/19 23 Active loperamide 2 mg capsule RxNorm: 777397 Take 1 Capsule(s) Oral QID as needed 06/12/19 22 Active hydralazine 50 mg tablet RxNorm: 693322 Take 1 Tablet(s) Oral QID 08/12/19 23 Active venlafaxine ER 75 mg capsule,extended release 24 hr RxNorm: 686557 Take 3 Capsule(s) Oral QD 06/12/19 22 023 Inactive polyethylene glycol 3350 17 gram/dose oral powder RxNorm: 680448 Take 17=1 capful Gram(s) Oral BID as needed mix with 4-8oz of liquid 06/12/19 22 024 Inactive icosapent ethyl 1 gram capsule RxNorm: 0657710 Take 2 Capsule(s) (2 gm) Oral BID with meals 10/07/19 23 023 Inactive Okay to dispense one 2gm tab if you have that available. Levemir FlexTouch U-100 Insulin 100 unit/mL (3 mL) subcutaneous pen RxNorm: 587435 Inject 80 Unit(s) Subcutaneous BID 07/14/19 23 023 Inactive Novolog Flexpen U-100 Insulin aspart 100 unit/mL (3 mL) subcutaneous RxNorm: 3406926 Insert 30 Unit(s) Subcutaneous TID with meals [...] Encounter Performer Location Location Address Codes Date (13672) Home or Residence Visit Est Pt - Moderate Level, 40 mins Diagnosis: Coronary artery disease involving [place] coronary artery of [place] heart, angina presence unspecified[ICD1 0: I25.10] Diagnosis: Major depression, recurrent[ICD10: F33.9] Andressa ManleySarah [place] [id number] [place] [id number] CPT-4: 72365 07/15/2023 Plan of Care Planned Activity Notes Codes Status Date Patient Education: Patient Medication Summary Completed 07/15/2023 Patient Education: Influenza Complet ed 07/15/2023 Appointment: Sandra Clark WPtel: [address] [facility] [address] [id number] Telehealth Psych Follow Up 12/09 Appointment: Tapan Shirley WPtel: [address] [facility] [address] [id number] [facility] 10/26/2022 Referral: [facility] WPtel: [address] , [address] [id number] Referral Records Received 09/21/2022 Appointment: Tapan Shirley WPtel: [address] [facility] [address] [id number] [place] F/U 08/11/2022 Appointment: Tapan Shirley WPtel: [address] [facility] 300 [id number] [place] F/U 07/14/2022 Appointment: Tapan Shirley WPtel: [address] [facility] 300 [id number] [place] F/U 02/10/2022 Referral: [facility] WPtel: [address] [id number] [place] Referral Completed 05/28/2021 Referral: General Cardiology Referral [facility] ed 01/03/2021 Referral: General Psychologist Referral Close [...] Sister Jyotsna involved in his care cell# [phone] Guardian: Giulia (tapan met in person 09/01/21), now has Lexii (same group as giulia)Lab Schedule: Mar-/September*September (CBC with diff, CMP, A1c) (Novemebr: CBC, CMP, A1c, Lipids, VitD) 10/08/2023 Major depression, recurrent consider [facility] Coronary artery disease involving [place] coronary artery of [place] heart, angina presence unspecified some edema, awaiting TEDs. 07/15/2023
--- OUTSIDE RECORDS SUMMARY | 2023-11-03 11:22 | XMS_ITS | CCD ---
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 Head Of Commission Department Name Role Phone Arpitmichelle [facility] Primary Care Provider Leona vailable [place] [employer] Chronic Care Management U navailable Summary Purpose DataExchange Insurance Providers Payer name Policy type / Coverage type Covered alliance party ID Effective Begin Date Effective End Date [place] [id number] Unknown Unknown [place] [id number] Unknown Unknown Family history Sister Brittany Suggs [...] Mcc 09/03/[address]: 1732528 Non-Smoker / No History of Smoking 09/02/[address]: 979381630 No Alcohol Consum ption 09/02/2020 Allergies, Adverse Reactions, Alerts Substance Reaction Codes Entered Date Inactivated Date Status LISINOPRIL RxNorm: 62469 02/12/2020 No Inactive Da te Active Metformin [...] 05/04/2023 Active Coronary artery disease invo lving [place] coronary artery of [place] heart, angina presence unspecified ICD-10: I25.10 ICD-9: [...] F33. 9 ICD-9: 296.30 03/03/2023 Active Other medical terminologist (current) dr ug therapy ICD-10: Z79.899 ICD-9: [...] glycol 3350 17 gram/dose oral powder RxNorm: 502126 Take 1 Packet Oral QD as needed (1 packet = 17g) mix with 4-8oz of liquid 06/15/19 024 Inactive bisacodyl 10 mg rectal suppository RxNorm: 438350 Insert one suppository per rectum once daily as needed for constipation 06/15/19 24 024 Inactive bisacodyl 10 mg rectal suppository RxNorm: 812670 Insert one suppository per rectum once daily as needed for constipation 06/15/19 024 Inactive pregabalin 100 mg capsule RxNorm: 985953 Take 1 Capsule(s) Oral QAM every morning 04/27/20 024 Inactive Levemir FlexPen 100 unit/mL (3 mL) solution subcutaneous insulin pen RxNorm: 572552 Inject 30 Unit(s) Subcutaneous BID 04/27/20 024 Inactive rosuvastatin 40 mg tablet RxNorm: 405431 Take 1 Tablet(s) Oral QPM every evening 04/16/20 024 Inactive D/C rosuvastatin 20mg venlafaxine ER 75 mg capsule,extended release 24 hr RxNorm: 972465 Take 3 Capsule(s) Oral QD 04/14/20 023 Inactive pregabalin 100 mg capsule RxNorm: 214506 Take 1 Capsule(s) Oral QAM every morning [...] meter clotrimazole 1 % topical cream RxNorm: 710097 Take apply topically to abdominal folds twice daily for 14 days 03/12/20 024 Inactive Ozempic 1 mg/dose (4 mg/3 mL) subcutaneous pen injector RxNorm: 6044207 Inject 1 Milligram(s) Subcutaneous QW once a week 03/11/20 23 023 Inactive rosuvastatin 20 mg tablet RxNorm: 906988 Take 1 Tablet(s) Oral QD 02/26/20 23 023 Inactive d/c pravastatin 80mg Ozempic 1 mg/dose (4 mg/3 mL) subcutaneous pen injector RxNorm: 5708194 Inject 1 Milligram(s) Subcutaneous QW once a week 02/20/20 23 023 Inactive pregabalin 150 mg capsule RxNorm: 957072 Take 1 Capsule(s) Oral HS at bed time 02/19/20 23 023 Inactive pregabalin 100 mg capsule RxNorm: 142333 Take 1 Capsule(s) Oral QAM every morning 02/18/20 023 Inactive FreeStyle Chema 2 Sensor kit RxNorm: use as directed 02/04/20 23 024 Inactive venlafaxine ER 75 mg capsule,extended release 24 hr RxNorm: 102959 Take 3 Capsule(s) Oral QD 02/04/20 23 023 Inactive FreeStyle Chema 2 Sensor kit RxNorm: use as directed 02/04/20 23 023 Inactive fluconazole 150 mg tablet RxNorm: 377313 Take 1 Tablet(s) Oral on day 3 and on day 6 02/03/20 23 024 Active chlorthalidone 25 mg tablet RxNorm: 316650 Take 1 Tablet(s) Oral QAM every morning 02/03/20 23 No Stop Date Active venlafaxine ER 150 mg capsule,extended release 24 hr RxNorm: 907278 Take 1 Capsule(s) Oral QD 02/03/20 23 023 Inactive acetaminophen 500 mg tablet RxNorm: 591572 1 TABLET ORALLY 3 TIMES DAILY (MAX APAP:4GM/24HR) 12/15/19 23 023 Inactive potassium chloride ER 20 mEq tablet,extended release RxNorm: 267455 Take 1 Tablet(s) Oral BID 12/09/19 23 024 Inactive d/c 20mEq once daily (sent from hospital) clotrimazole 1 % topical cream RxNorm: 244753 apply 1g topically to top of feet and in between toes BID 12/09/19 23 023 Inactive nystatin 100,000 unit/gram topical powder RxNorm: 852532 APPLY TO AFFECTED AREAS TOPICALLY 2 TIMES DAILY 11/21/19 23 024 Inactive Nystop 100,000 unit/gram topical powder RxNorm: 412602 Apply to abd folds, under breasts and L side of groin Topical BID x 14 days, then BID PRN 11/20/19 023 Inactive dx: yeast dermatitis [place] Ultra Strength 4 %-30 %-10 % topical cream RxNorm: 405892 Apply 1 Gram(s) Topical QID PRN to feet and legs for neuropathic pain 11/11/19 024 Active hydrocortisone 2.5 % topical cream RxNorm: 051012 Apply 1/2 Gram(s) Topical BID as needed 11/10/19 024 Inactive clotrimazole 1 % topical cream RxNorm: 983470 Apply 1/2 Gram(s) Topical BID Apply to affected areas of groin, periarea, and abdominal topically 2 times daily 11/10/19 023 Inactive Humulin R U-500 (Concentrated) Insulin 500 unit/mL subcutaneous soln RxNorm: 662068 Inject 100 Unit(s) Subcutaneous TID 10/07/19 024 Inactive Ozempic 0.25 mg or 0.5 mg (2 mg/3 mL) subcutaneous pen injector RxNorm: 2371894 Inject 1/2 Milligram(s) Subcutaneous QW once a week 10/07/19 024 Inactive Levemir FlexPen 100 unit/mL (3 mL) solution subcutaneous insulin pen RxNorm: 327875 Inject 30 Unit(s) Subcutaneous BID 10/07/19 023 Inactive aripiprazole 15 mg tablet RxNorm: 003305 1/2 TAB (7.5MG) ORALLY DAILY (DX:MAJOR DEPRESSIVE DISORDER) 09/23/19 023 Inactive Lancets,Thin 28 gauge RxNorm: Use 1 as directed QID 09/15/19 23 024 Inactive Accu-Chek Guide test strips RxNorm: Use 1 Test Strip QID 09/15/19 23 023 Inactive ok to substitute with any covered alternative test strip torsemide 20 mg tablet RxNorm: 428535 Take 1 Tablet(s) Oral BID 09/09/19 23 024 Inactive d/c once daily dosing carvedilol 25 mg tablet RxNorm: 776436 Take 1 Tablet(s) Oral QD 08/25/19 23 024 Inactive pregabalin 150 mg capsule RxNorm: 515307 1 Capsule(s) Oral HS at bed time 08/18/19 23 023 Inactive pregabalin 100 mg capsule RxNorm: 321450 1 Capsule(s) Oral QAM every morning 08/18/19 23 023 Inactive carvedilol 25 mg tablet RxNorm: 578793 1 Tablet(s) Oral QD 07/28/19 23 023 Inactive lisinopril 20 mg tablet RxNorm: 508280 Give 1 Tablet(s) Oral QD 07/28/19 23 023 Inactive Lyrica 150 mg capsule RxNorm: 446079 Take 1 Capsule(s) Oral QHS every night at bedtime 07/19/19 23 023 Inactive d/c 100mg dose Diflucan 150 mg tablet RxNorm: 463969 Take 1 Tablet(s) Oral QD repeat on day 3 and 6 07/19/19 23 023 Inactive pregabalin 100 mg capsule RxNorm: 412325 Take 1 Capsule(s) Oral QAM every morning 07/19/19 23 023 Inactive gatifloxacin 0.5 % eye drops RxNorm: 216269 Instill 1 Drop(s) as directed TID Instill 1 drop in to affected eye(s) starting 1 day prior to surgery and continue until gone (do not exceed 4 weeks). 07/13/19 23 023 Inactive carvedilol 25 mg tablet RxNorm: 146813 2 Tablet(s) Oral BID 07/13/19 23 023 Inactive Humulin R Regular U-100 Insulin 100 unit/mL injection solution RxNorm: 679417 85 Unit(s) Injection TID 07/13/19 23 023 Inactive ketorolac 0.5 % eye drops RxNorm: 291060 Instill 1 Drop(s) as directed QID Instill 1 drop into affected eye(s) 4 times daily starting 1 day prior to surgery and continue until gone (do not exceed 4 weeks). 07/13/19 23 023 Inactive Diflucan 150 mg tablet RxNorm: 721622 Take 1 Tablet(s) Oral QD repeat on day 3 and 6 06/30/19 23 023 Inactive Accu-Chek Guide test strips RxNorm: Use 1 Test Strip QID Use 1 test strip to monitor blood glucose 4 times daily and as needed. Dx:E11.42. 06/23/19 023 Inactive ok to substitute with any covered alternative test strip dextromethorphan-gu aifenesin 10 mg-100 mg/5 mL oral liquid RxNorm: 967430 Take 10 Milliliter(s) Oral every 4 hours as needed for cough 06/19/19 023 Inactive dextromethorphan-gu aifenesin 10 mg-100 mg/5 mL oral liquid RxNorm: 200975 Take 10 Milliliter(s) Oral every 4 hours as needed for cough 06/19/19 23 023 Inactive Lyrica 150 mg capsule RxNorm: 990499 Take 1 Capsule(s) Oral QHS every night at bedtime 06/18/19 023 Inactive d/c 100mg dose aripiprazole 15 mg tablet RxNorm: 323539 1/2 TAB (7.5MG) ORALLY DAILY (DX:MAJOR DEPRESSIVE DISORDER) 06/05/19 23 023 Inactive pregabalin 100 mg capsule RxNorm: 427180 1 Capsule(s) Oral QAM every morning 06/02/19 23 023 Inactive Banophen 50 mg capsule RxNorm: 3653375 Take 1 Capsule(s) Oral Q6H every 6 hours as needed 05/19/19 23 No Stop Date Active Novolog Flexpen U-100 Insulin aspart 100 unit/mL (3 mL) subcutaneous RxNorm: 1416341 Inject 10 Unit(s) Subcutaneous QHS every night at bedtime with nighttime snack 04/08/20 022 Inactive Novolog Flexpen U-100 Insulin aspart 100 unit/mL (3 mL) subcutaneous RxNorm: 6733371 Inject 42 Unit(s) Subcutaneous TID in addition to sliding scale 04/08/20 022 Inactive d/c 36u albuterol sulfate HFA 90 mcg/actuation aerosol inhaler RxNorm: 5990469 Take 2 Puff(s) Inhalation Q4H every four hours as needed as needed for SOB, cough, or wheezing 04/07/20 030 Active Banophen 50 mg capsule RxNorm: 1210292 Take 1 Capsule(s) Oral Q6H every 6 hours as needed 04/06/20 023 Inactive diphenhydramine 50 mg tablet RxNorm: 2037721 Take 1 Tablet(s) Oral Q6H every 6 hours as needed 04/06/20 022 Inactive diphenhydramine 50 mg tablet RxNorm: 3934727 1 Tablet(s) Oral Q6H every 6 hours as needed 04/06/20 022 Inactive Abilify 15 mg tablet RxNorm: 967646 1/2 Tablet(s) Oral QD 03/10/20 023 Inactive Shingrix (PF) 50 mcg/0.5 mL intramuscular suspension, kit RxNorm: 7287267 Administer 1/2 Milliliter(s) Intramuscular QD one time shingrix step 2 ( step 1 given 11/04/21) WITH needle - Nursing please administer upon arrival and once administered post a bridge message with date of administration, flaking roll operator, expiration date, and lot# so we can update [facility] 02/18/20 22 022 Inactive dispense with needle Shingrix (PF) 50 mcg/0.5 mL intramuscular suspension, kit RxNorm: 6903007 Administer 1/2 Milliliter(s) Intramuscular QD one time shingrix step 2 ( step 1 given 11/04/21) WITH needle - Nursing please administer upon arrival and once administered post a bridge message with date of administration, flaking roll operator, expiration date, and lot# so we can update [facility] 02/18/20 22 022 Inactive dispense with needle polyethylene glycol 3350 17 gram/dose oral powder RxNorm: 749471 Take 17=1 capful Gram(s) Oral QD mix with 4-8oz of liquid 01/08/20 22 023 Inactive take this in addition to BID prn order Lyrica 100 mg capsule RxNorm: 860479 Take 1 Capsule(s) Oral QAM every morning 01/08/20 22 022 Inactive d/c 50mg dose acetaminophen 500 mg tablet RxNorm: 907766 Take 1 Tablet(s) Oral TID 01/08/20 22 022 Inactive d/c PRN order Lyrica 150 mg capsule RxNorm: 874844 Take 1 Capsule(s) Oral QHS every night at bedtime 01/08/20 22 023 Inactive d/c 100mg dose Abilify 5 mg tablet RxNorm: 112743 Take 1 Tablet(s) Oral QD take 1 tab po QD #30 refill 5 dx: MDD 12/12/19 22 022 Inactive Abilify 5 mg tablet RxNorm: 282393 Take 1 Tablet(s) Oral QD take 1 tab po QD #30 refill 5 dx: MDD 12/12/19 22 022 Inactive Novolog Flexpen U-100 Insulin aspart 100 unit/mL (3 mL) subcutaneous RxNorm: 6407222 Inject 42 Unit(s) Subcutaneous TID in addition to sliding scale 12/10/19 22 022 Inactive d/c 36u chlorthalidone 25 mg tablet RxNorm: 045986 Take 1 Tablet(s) Oral QAM every morning 12/10/19 22 023 Inactive pregabalin 50 mg capsule RxNorm: 957527 Take 1 Capsule(s) Oral QAM every morning 11/12/19 22 022 Inactive tetanus-diphtheria toxoids-Td 2 Lf unit-2 Lf unit/0.5 mL IM suspension RxNorm: 139 Take 0.5 Miscellaneous Intramuscular 11/12/19 22 022 Inactive need tdap - nursing to administer upon arrival pregabalin 50 mg capsule RxNorm: 813154 Take 1 Capsule(s) Oral QAM every morning 10/16/19 22 022 Inactive pregabalin 50 mg capsule RxNorm: 547828 Take 1 Capsule(s) Oral QAM every morning 10/16/19 22 022 Inactive pregabalin 50 mg capsule RxNorm: 783643 1 Capsule(s) Oral QAM every morning 10/15/19 22 022 Inactive Shingrix (PF) 50 mcg/0.5 mL intramuscular suspension, kit RxNorm: 9560959 Administer 1/2 Milliliter(s) Intramuscular one time Nursing please administer upon arrival and once administered post a bridge message with date of administration, flaking roll operator, expiration date, and lot# so we can update [facility]. 10/09/19 22 022 Inactive shingrix step 1 Shingrix (PF) 50 mcg/0.5 mL intramuscular suspension, kit RxNorm: 6790526 Administer 1/2 Milliliter(s) Intramuscular one time Nursing please administer upon arrival and once administered post a bridge message with date of administration, flaking roll operator, expiration date, and lot# so we can update [facility]. 10/09/19 22 022 Inactive shingrix step 1 cholecalciferol (vitamin D3) 1,250 mcg (50,000 unit) capsule RxNorm: 389458 Take 1 Capsule(s) Oral QW once a [...] aspart 100 unit/mL (3 mL) subcutaneous RxNorm: 4271334 Inject 10 Unit(s) Subcutaneous QHS every night at bedtime with nighttime snack 10/08/19 22 022 Inactive Shingrix (PF) 50 mcg/0.5 mL intramuscular suspension, kit RxNorm: 4780240 ADMINISTER 2-DOSE SERIES PER CDC GUIDELINES 10/08/19 22 Active Shingrix (PF) 50 mcg/0.5 mL intramuscular suspension, kit RxNorm: 0118002 ADMINISTER 2-DOSE SERIES PER CDC GUIDELINES 10/08/19 22 Inactive Novolog Flexpen U-100 Insulin aspart 100 unit/mL (3 mL) subcutaneous RxNorm: 2739231 Inject 36 Unit(s) Subcutaneous TID in addition to sliding scale 10/08/19 Inactive Novofine Autocover 30 gauge x 1/3 needle RxNorm: Use 1 Miscellaneous UD as directed Use 1 needle as directed to administer insulin 5 times a day Dx:E11.42. 10/03/19 Inactive ok to substitute with any covered alternative pen needle benzoyl peroxide 10 % topical cleanser RxNorm: 735501 Apply 1 Application Topical QD apply to face, wash rinse and dry once daily (may change to QOD if drying) 08/19/19 022 Inactive (%covered by insurance) #60ml refill 11 dx: acne benzoyl peroxide 10 % topical cleanser RxNorm: 932801 Apply 1 Application Topical QD apply to face, wash rinse and dry once daily (may change to QOD if drying) 08/19/19 022 Inactive (%covered by insurance) #60ml refill 11 dx: acne benzoyl peroxide 10 % topical cleanser RxNorm: 928902 Apply 1 Application Topical QD apply to face, wash rinse and dry once daily (may change to QOD if drying) 08/19/19 022 Inactive (%covered by insurance) #60ml refill 11 dx: acne Lyrica 50 mg capsule RxNorm: 682224 Take 1 Capsule(s) Oral QAM every morning Take 1 capsule by mouth once daily 08/19/19 22 Inactive benzoyl peroxide 10 % topical cleanser RxNorm: 306417 Apply 1 Application Topical QD apply to face, wash rinse and dry once daily (may change to QOD if drying) 08/19/19 22 022 Inactive (%covered by insurance) #60ml refill 11 dx: acne Lyrica 100 mg capsule RxNorm: 378664 Take 1 Capsule(s) Oral QHS every night at bedtime Take 1 capsule by mouth once daily at bedtime 08/19/19 22 022 Inactive Lyrica 100 mg capsule RxNorm: 755762 Take 1 Capsule(s) Oral QHS every night at bedtime Take 1 capsule by mouth once daily at bedtime 08/16/19 22 022 Inactive Lyrica 50 mg capsule RxNorm: 384441 Take 1 Capsule(s) Oral QAM every morning Take 1 capsule by mouth once daily 08/16/19 22 022 Inactive Levemir FlexTouch U-100 Insulin 100 unit/mL (3 mL) subcutaneous pen RxNorm: 263882 Inject 86 Unit(s) Subcutaneous BID 08/05/19 22 022 Inactive d/c 83units BID Lyrica 100 mg capsule RxNorm: 184102 Take 1 Capsule(s) Oral QHS every night at bedtime Take 1 capsule by mouth once daily at bedtime 07/14/19 22 022 Inactive Lyrica 50 mg capsule RxNorm: 160645 Take 1 Capsule(s) Oral QAM every morning Take 1 capsule by mouth once daily 07/14/19 22 022 Inactive Levemir FlexTouch U-100 Insulin 100 unit/mL (3 mL) subcutaneous pen RxNorm: 361749 Inject 83 Unit(s) Subcutaneous BID 07/08/19 22 [...] 30 mg tablet,extended release 24 hr RxNorm: 559906 Take 1 Tablet(s) Oral QD 05/05/20 21 024 Inactive hydralazine 50 mg tablet RxNorm: 690842 Take 1 Tablet(s) Oral QID 05/05/20 21 022 Inactive venlafaxine ER 225 mg tablet,extended release 24 hr RxNorm: 161823 Take 1 Tablet(s) Oral QD 05/05/20 21 021 Inactive venlafaxine ER 225 mg tablet,extended release 24 hr RxNorm: 370387 Take 1 Tablet(s) Oral QD 05/05/20 21 022 Inactive hydralazine 50 mg tablet RxNorm: 724791 Take 1 Tablet(s) Oral QID 05/05/20 21 021 Inactive aspirin 81 mg tablet,delayed release RxNorm: 280070 Take 1 Tablet(s) Oral QD 03/31/20 21 022 Inactive Zetia 10 mg tablet RxNorm: 337331 Take 1 Tablet(s) Oral QD 03/31/20 21 024 Inactive Vitamin D2 1,250 mcg (50,000 unit) capsule RxNorm: 5701603 Take 1 Capsule(s) Oral QW once a week x 12 weeks 03/31/20 022 Inactive Vitamin D2 1,250 mcg (50,000 unit) capsule RxNorm: 0763034 Take 1 Capsule(s) Oral QW once a week 03/31/20 Inactive Zetia 10 mg tablet RxNorm: 443817 Take 1 Tablet(s) Oral QD 03/31/20 Inactive hydralazine 25 mg tablet RxNorm: 693690 Take 1 Tablet(s) Oral QID 03/31/20 021 Inactive hydralazine 25 mg tablet RxNorm: 385736 Take 1 Tablet(s) Oral QID 03/31/20 Inactive hydralazine 10 mg tablet RxNorm: 069235 Take 1 Tablet(s) Oral QID 03/03/20 021 Inactive cephalexin 500 mg tablet RxNorm: 744477 Take 1 Tablet(s) Oral QID 02/27/20 021 Inactive cephalexin 500 mg tablet RxNorm: 356011 Take 1 Tablet(s) Oral QID 02/27/20 021 Inactive lisinopril 40 mg tablet RxNorm: 273343 Take 1 Tablet(s) Oral QD 02/11/20 023 Inactive Eliquis 5 mg tablet RxNorm: 7384495 Take 1 Tablet(s) Oral BID 01/05/20 21 022 Inactive Eliquis 5 mg tablet RxNorm: 2225428 Take 2 Tablet(s) Oral QD 01/01/20 21 021 Inactive Lyrica 50 mg capsule RxNorm: 152137 Take 1 Capsule(s) Oral QAM every morning 12/24/19 21 021 Inactive Lyrica 100 mg capsule RxNorm: 462480 Take 1 Capsule(s) Oral QHS every night at bedtime 12/24/19 21 021 Inactive clotrimazole 1 % topical cream RxNorm: 817137 Apply to right foot and toes Topical BID 12/04/19 21 023 Inactive metoprolol succinate ER 200 mg tablet,extended release 24 hr RxNorm: 081305 Take 1 Tablet(s) Oral QD 12/04/19 21 023 Inactive ciprofloxacin 500 mg tablet RxNorm: 696457 Take 1 Tablet(s) Oral QD 11/30/19 21 021 Inactive DX ofloxacin otic drops Accu-Chek Guide test strips RxNorm: USE 1 TO CHECK GLUCOSE 4 TIMES DAILY AND NEEDED 11/15/19 21 023 Inactive Blood Glucose Test strips RxNorm: Use 1 Test Strip QID at PRN 11/05/19 21 023 Inactive E11.42 lisinopril 30 mg tablet RxNorm: 580796 Take 1 Tablet(s) Oral QD 10/30/19 21 021 Inactive lisinopril 20 mg tablet RxNorm: 334861 Take 1 Tablet(s) Oral QD 10/23/19 021 Inactive lisinopril 20 mg tablet RxNorm: 351968 Take 1 Tablet(s) Oral QD 10/23/19 21 021 Inactive lisinopril 10 mg tablet RxNorm: 364936 Take 1 Tablet(s) Oral QD 10/02/19 21 021 Inactive icosapent ethyl 1 gram capsule RxNorm: 4296837 Take 2 Capsule(s) (2 gm) Oral BID with meals 09/12/19 21 024 Inactive Okay to dispense one 2gm tab if you have that available. icosapent ethyl 1 gram capsule RxNorm: 8075874 Take 2 Capsule(s) Oral BID 09/12/19 21 021 Inactive Okay to dispense one 2gm tab if you have that available. amlodipine 10 mg tablet RxNorm: 726420 Take 1 Tablet(s) Oral QD 09/04/19 21 022 Inactive aspirin 81 mg tablet,delayed release RxNorm: 981384 Take 1 Tablet(s) Oral QD 09/04/19 21 021 Inactive Levemir FlexTouch U-100 Insulin 100 unit/mL (3 mL) subcutaneous pen RxNorm: 612260 Inject 150 Unit(s) Subcutaneous BID 09/04/19 21 022 Inactive venlafaxine ER 150 mg tablet,extended release 24 hr RxNorm: 551619 Take 1 Tablet(s) Oral QD 09/04/19 Inactive clotrimazole-betame thasone 1 %-0.05 % topical cream RxNorm: 662301 Apply to rash on red area on left abdomen/chest Topical BID 08/10/19 21 Inactive amlodipine 5 mg tablet RxNorm: 883831 Take 1 Tablet(s) Oral QD 07/31/19 21 Inactive cephalexin 500 mg tablet RxNorm: 809075 Take 1 Tablet(s) Oral BID BID - Twice Daily 07/31/19 Inactive Start 08/01/20 pantoprazole 40 mg tablet,delayed release RxNorm: 640337 Take 1 Tablet(s) Oral QAM every morning 07/08/19 Inactive senna 8.6 mg tablet RxNorm: 889122 Take 1 Tablet(s) Oral QD 07/08/19 022 Inactive carbamazepine 200 mg tablet RxNorm: 982127 Take 1 Tablet(s) Oral BID 07/08/19 Inactive clopidogrel 75 mg tablet RxNorm: 662568 Take 1 Tablet(s) Oral QD 07/08/19 Inactive Blood Glucose Test strips RxNorm: Use 1 Test Strip QID at PRN 07/08/19 Inactive E11.42 Novolog Flexpen U-100 Insulin aspart 100 unit/mL (3 mL) subcutaneous RxNorm: 7486514 Administer per sliding scale Milliliter(s) Subcutaneous TID 151-200: 10 u; 201-250: 20 u; 251-300: 30 u; 301-350: 40 u; 351-400: 50 u. 07/08/19 022 Inactive lisinopril 5 mg tablet RxNorm: 417217 Take 1 Tablet(s) Oral QD 07/08/19 Inactive Novolog Flexpen U-100 Insulin aspart 100 unit/mL (3 mL) subcutaneous RxNorm: 0831408 Inject 85 Unit(s) Subcutaneous TID 02/22/ 022 Inactive pravastatin 80 mg tablet RxNorm: 657623 Take 1 Tablet(s) Oral QHS every night at bedtime 07/08/19 023 Inactive clotrimazole 1 % topical cream RxNorm: 213133 Apply to bilateral groin areas Topical BID 07/08/19 022 Inactive metoprolol succinate ER 200 mg tablet,extended release 24 hr RxNorm: 742350 Take 1 Tablet(s) Oral QD 07/08/19 021 Inactive Vitamin D3 25 mcg (1,000 unit) tablet RxNorm: 336941 Take 1 Tablet(s) Oral QD 07/08/19 021 Inactive isosorbide dinitrate 30 mg tablet RxNorm: 897018 Take 1 Tablet(s) Oral QD 07/08/19 021 Inactive Levemir FlexTouch U-100 Insulin 100 unit/mL (3 mL) subcutaneous pen RxNorm: 130843 Inject 140 Unit(s) Subcutaneous BID 07/08/19 021 Inactive torsemide 20 mg tablet RxNorm: 676499 Take 1 Tablet(s) Oral QD 07/08/19 023 Inactive venlafaxine 75 mg tablet RxNorm: 761074 Take 1 Tablet(s) Oral QD 07/08/19 021 Inactive acetaminophen 500 mg tablet RxNorm: 486016 Take 1 Tablet(s) Oral TID as needed for headache 06/18/19 021 Inactive acetaminophen 500 mg tablet RxNorm: 836984 Take 1 Tablet(s) Oral TID as needed for headache 06/18/19 021 Inactive Lyrica 100 mg capsule RxNorm: 718826 Take 1 Capsule(s) Oral QHS every night at bedtime 06/11/19 021 Inactive Lyrica 50 mg capsule RxNorm: 354691 Take 1 Capsule(s) Oral QAM every morning 06/10/19 021 Inactive hydrocortisone 2.5 % topical cream RxNorm: 506849 Apply to bilateral groin creases Topical BID 05/15/20 20 021 Inactive clotrimazole 1 % topical cream RxNorm: 215376 Apply to bilateral groin areas Topical BID 05/15/20 20 Inactive Lyrica 50 mg capsule RxNorm: 577264 Take 1 Capsule(s) Oral QAM every morning 05/14/20 20 020 Inactive Lyrica 100 mg capsule RxNorm: 285138 Take 1 Capsule(s) Oral QHS every night [...] Inactive Nystop 100,000 unit/gram topical powder RxNorm: 656936 Apply to abd folds, under breasts and L side of groin Topical BID x 14 days, then BID PRN 04/08/20 20 020 Inactive dx: yeast dermatitis Lyrica 100 mg capsule RxNorm: 459407 Take 1 Capsule(s) Oral QHS every night at bedtime 03/13/20 20 020 Inactive Lyrica 50 mg capsule RxNorm: 736135 Take 1 Capsule(s) Oral QAM every morning 03/13/20 20 020 Inactive ketoconazole 2 % shampoo RxNorm: 039002 Apply Topical two times a week with showers 03/11/20 20 024 Inactive cholecalciferol (vitamin D3) 50 mcg (2,000 unit) tablet RxNorm: 959148 Take 1 Tablet(s) Oral QD 03/11/20 20 021 Inactive Zetia 10 mg tablet RxNorm: 872186 Take 1 Tablet(s) Oral QD 03/07/20 20 021 Inactive Zetia 10 mg tablet RxNorm: 270696 Take 1 Tablet(s) Oral QD 03/07/20 20 Inactive Lyrica 50 mg capsule RxNorm: 198137 Take 1 Capsule(s) Oral QAM every morning 02/15/20 20 Inactive Lyrica 100 mg capsule RxNorm: 873409 Take 1 Capsule(s) Oral QHS every night at bedtime 02/15/20 20 Inactive Lyrica 100 mg capsule RxNorm: 831011 Take 1 Capsule(s) Oral QHS every night at bedtime 02/15/20 20 Inactive Lyrica 50 mg capsule RxNorm: 674312 Take 1 Capsule(s) Oral QAM every morning 02/15/20 20 Inactive polyethylene glycol 3350 17 gram/dose oral powder RxNorm: 836736 Take 17=1 capful Gram(s) Oral BID as needed mix with 4-8oz of liquid 06/12/19 22 024 Inactive metoprolol succinate ER 200 mg tablet,extended release 24 hr RxNorm: 435424 Take 1 Tablet(s) Oral QD 08/12/19 23 Active loperamide 2 mg capsule RxNorm: 875253 Take 1 Capsule(s) Oral QID as needed 06/12/19 22 Active hydralazine 50 mg tablet RxNorm: 969501 Take 1 Tablet(s) Oral QID 08/12/19 23 Active venlafaxine ER 75 mg capsule,extended release 24 hr RxNorm: 440771 Take 3 Capsule(s) Oral QD 06/12/19 22 023 Inactive icosapent ethyl 1 gram capsule RxNorm: 5704032 Take 2 Capsule(s) (2 gm) Oral BID with meals 10/07/19 23 023 Inactive Okay to dispense one 2gm tab if you have that available. Levemir FlexTouch U-100 Insulin 100 unit/mL (3 mL) subcutaneous pen RxNorm: 533797 Inject 80 Unit(s) Subcutaneous BID 07/14/19 23 023 Inactive Novolog Flexpen U-100 Insulin aspart 100 unit/mL (3 mL) subcutaneous RxNorm: [id number] Insert 30 Unit(s) Subcutaneous TID with meals 10/08/19 22 022 Inactive Medication Administered No Medication Administered data Reason For Visit No Reason For Visit data Plan of Care Planned Activity Notes Codes Status Date Referral: [facility] WPtel: [phone], [address] [id number] [place] Referral Records Received 09/21/2022 Referral: [facility] WPtel: [phone] [id number] [place] Referral Completed 05/28/2021 Referral: General Cardiology [...] Sister Jyotsna involved in his care cell# [phone] Guardian: Don (tapan met in person 09/01/21), now has Lexii (same group as don)Lab Schedule: /September*September (CBC with diff, CMP, A1c) (Novemebr: CBC, CMP, A1c, Lipids, VitD) 10/08/2023
--- OUTSIDE RECORDS SUMMARY | 2023-11-03 11:22 | XMS_ITS | CCD ---
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 Name Role Phone Harrison [facility] Primary Care Provider Leona vailable Harrison [facility] Chronic Care Management U navailable Summary Purpose DataExchange Insurance Providers Payer name Policy type / Coverage type Covered democrat ID Effective Begin Date Effective End Date [place] Part B [id number] Unknown Unknown [place] Part B [id number] Unknown Unknown Family history Sister Brittany Suggs [...] Care Home 09/03/[address]: 8214924 Non-Smoker / No History of Smoking 09/02/[address]: 375330383 No Alcohol Consum ption 09/02/2020 Allergies, Adverse Reactions, Alerts Substance Reaction Codes Entered Date Inactivated Date Status LISINOPRIL RxNorm: 76318 02/12/2020 No Inactive Da te Active Metformin [...] 05/04/2023 Active Coronary artery disease invo lving wrangell [...] Instructions bisacodyl 10 mg rectal suppository RxNorm: 448410 Insert one suppository per rectum once daily as needed for constipation 06/15/19 24 024 Inactive bisacodyl 10 mg rectal suppository RxNorm: 111564 Insert one suppository per rectum once daily as needed for constipation 06/15/19 024 Inactive pregabalin 100 mg capsule RxNorm: 904329 Take 1 Capsule(s) Oral QAM every morning 04/27/20 23 024 Inactive Levemir FlexPen 100 unit/mL (3 mL) solution subcutaneous insulin pen RxNorm: 776978 Inject 30 Unit(s) Subcutaneous BID 04/27/20 23 024 Inactive rosuvastatin 40 mg tablet RxNorm: 911021 Take 1 Tablet(s) Oral QPM every evening 04/16/20 024 Inactive D/C rosuvastatin 20mg venlafaxine ER 75 mg capsule,extended release 24 hr RxNorm: 785628 Take 3 Capsule(s) Oral QD 04/14/20 23 023 Inactive pregabalin 100 mg capsule RxNorm: 109224 Take 1 Capsule(s) Oral QAM every morning [...] meter clotrimazole 1 % topical cream RxNorm: 810420 Take apply topically to abdominal folds twice daily for 14 days 03/12/20 23 024 Inactive Ozempic 1 mg/dose (4 mg/3 mL) subcutaneous pen injector RxNorm: 8802194 Inject 1 Milligram(s) Subcutaneous QW once a week 03/11/20 23 023 Inactive rosuvastatin 20 mg tablet RxNorm: 281674 Take 1 Tablet(s) Oral QD 02/26/20 023 Inactive d/c pravastatin 80mg Ozempic 1 mg/dose (4 mg/3 mL) subcutaneous pen injector RxNorm: 0053275 Inject 1 Milligram(s) Subcutaneous QW once a week 02/20/20 23 023 Inactive pregabalin 150 mg capsule RxNorm: 189742 Take 1 Capsule(s) Oral HS at bed time 02/19/20 023 Inactive pregabalin 100 mg capsule RxNorm: 753648 Take 1 Capsule(s) Oral QAM every morning 02/18/20 023 Inactive FreeStyle Chema 2 Sensor kit RxNorm: use as directed 02/04/20 23 024 Inactive venlafaxine ER 75 mg capsule,extended release 24 hr RxNorm: 443154 Take 3 Capsule(s) Oral QD 02/04/20 23 023 Inactive FreeStyle Chema 2 Sensor kit RxNorm: use as directed 02/04/20 23 023 Inactive fluconazole 150 mg tablet RxNorm: 640168 Take 1 Tablet(s) Oral on day 3 and on day 6 02/03/20 23 024 Active chlorthalidone 25 mg tablet RxNorm: 359374 Take 1 Tablet(s) Oral QAM every morning 02/03/20 23 No Stop Date Active venlafaxine ER 150 mg capsule,extended release 24 hr RxNorm: 180899 Take 1 Capsule(s) Oral QD 02/03/20 23 023 Inactive acetaminophen 500 mg tablet RxNorm: 443470 1 TABLET ORALLY 3 TIMES DAILY (MAX APAP:4GM/24HR) 12/15/19 23 023 Inactive potassium chloride ER 20 mEq tablet,extended release RxNorm: 773229 Take 1 Tablet(s) Oral BID 12/09/19 23 024 Inactive d/c 20mEq once daily (sent from hospital) clotrimazole 1 % topical cream RxNorm: 685832 apply 1g topically to top of feet and in between toes BID 12/09/19 23 023 Inactive nystatin 100,000 unit/gram topical powder RxNorm: 573091 APPLY TO AFFECTED AREAS TOPICALLY 2 TIMES DAILY 11/21/19 23 024 Inactive Nystop 100,000 unit/gram topical powder RxNorm: 723820 Apply to abd folds, under breasts and L side of groin Topical BID x 14 days, then BID PRN 11/20/19 023 Inactive dx: yeast dermatitis Bengay Ultra Strength 4 %-30 %-10 % topical cream RxNorm: 958989 Apply 1 Gram(s) Topical QID PRN to feet and legs for neuropathic pain 11/11/19 024 Active hydrocortisone 2.5 % topical cream RxNorm: 457293 Apply 1/2 Gram(s) Topical BID as needed 11/10/19 024 Inactive clotrimazole 1 % topical cream RxNorm: 639495 Apply 1/2 Gram(s) Topical BID Apply to affected areas of groin, periarea, and abdominal topically 2 times daily 11/10/19 023 Inactive Humulin R U-500 (Concentrated) Insulin 500 unit/mL subcutaneous soln RxNorm: 517211 Inject 100 Unit(s) Subcutaneous TID 10/07/19 024 Inactive Ozempic 0.25 mg or 0.5 mg (2 mg/3 mL) subcutaneous pen injector RxNorm: 7527119 Inject 1/2 Milligram(s) Subcutaneous QW once a week 10/07/19 024 Inactive Levemir FlexPen 100 unit/mL (3 mL) solution subcutaneous insulin pen RxNorm: 570145 Inject 30 Unit(s) Subcutaneous BID 10/07/19 023 Inactive aripiprazole 15 mg tablet RxNorm: 305210 1/2 TAB (7.5MG) ORALLY DAILY (DX:MAJOR DEPRESSIVE DISORDER) 09/23/19 023 Inactive Lancets,Thin 28 gauge RxNorm: Use 1 as directed QID 09/15/19 23 024 Inactive Accu-Chek Guide test strips RxNorm: Use 1 Test Strip QID 09/15/19 23 023 Inactive ok to substitute with any covered alternative test strip torsemide 20 mg tablet RxNorm: 270862 Take 1 Tablet(s) Oral BID 09/09/19 23 024 Inactive d/c once daily dosing carvedilol 25 mg tablet RxNorm: 605239 Take 1 Tablet(s) Oral QD 08/25/19 23 024 Inactive pregabalin 150 mg capsule RxNorm: 154837 1 Capsule(s) Oral HS at bed time 08/18/19 23 023 Inactive pregabalin 100 mg capsule RxNorm: 567988 1 Capsule(s) Oral QAM every morning 08/18/19 23 023 Inactive carvedilol 25 mg tablet RxNorm: 764137 1 Tablet(s) Oral QD 07/28/19 23 023 Inactive lisinopril 20 mg tablet RxNorm: 774337 Give 1 Tablet(s) Oral QD 07/28/19 23 023 Inactive Lyrica 150 mg capsule RxNorm: 668111 Take 1 Capsule(s) Oral QHS every night at bedtime 07/19/19 23 023 Inactive d/c 100mg dose Diflucan 150 mg tablet RxNorm: 385719 Take 1 Tablet(s) Oral QD repeat on day 3 and 6 07/19/19 23 023 Inactive pregabalin 100 mg capsule RxNorm: 516689 Take 1 Capsule(s) Oral QAM every morning 07/19/19 23 023 Inactive gatifloxacin 0.5 % eye drops RxNorm: 029728 Instill 1 Drop(s) as directed TID Instill 1 drop in to affected eye(s) starting 1 day prior to surgery and continue until gone (do not exceed 4 weeks). 07/13/19 23 023 Inactive carvedilol 25 mg tablet RxNorm: 503993 2 Tablet(s) Oral BID 07/13/19 23 023 Inactive Humulin R Regular U-100 Insulin 100 unit/mL injection solution RxNorm: 883388 85 Unit(s) Injection TID 07/13/19 23 023 Inactive ketorolac 0.5 % eye drops RxNorm: 981442 Instill 1 Drop(s) as directed QID Instill 1 drop into affected eye(s) 4 times daily starting 1 day prior to surgery and continue until gone (do not exceed 4 weeks). 07/13/19 23 023 Inactive Diflucan 150 mg tablet RxNorm: 429207 Take 1 Tablet(s) Oral QD repeat on day 3 and 6 06/30/19 23 023 Inactive Accu-Chek Guide test strips RxNorm: Use 1 Test Strip QID Use 1 test strip to monitor blood glucose 4 times daily and as needed. Dx:E11.42. 06/23/19 023 Inactive ok to substitute with any covered alternative test strip dextromethorphan-gu aifenesin 10 mg-100 mg/5 mL oral liquid RxNorm: 348707 Take 10 Milliliter(s) Oral every 4 hours as needed for cough 06/19/19 023 Inactive dextromethorphan-gu aifenesin 10 mg-100 mg/5 mL oral liquid RxNorm: 406087 Take 10 Milliliter(s) Oral every 4 hours as needed for cough 06/19/19 023 Inactive Lyrica 150 mg capsule RxNorm: 532291 Take 1 Capsule(s) Oral QHS every night at bedtime 06/18/19 023 Inactive d/c 100mg dose aripiprazole 15 mg tablet RxNorm: 291591 1/2 TAB (7.5MG) ORALLY DAILY (DX:MAJOR DEPRESSIVE DISORDER) 06/05/19 23 023 Inactive pregabalin 100 mg capsule RxNorm: 360958 1 Capsule(s) Oral QAM every morning 06/02/19 23 023 Inactive Banophen 50 mg capsule RxNorm: 6302175 Take 1 Capsule(s) Oral Q6H every 6 hours as needed 05/19/19 23 No Stop Date Active Novolog Flexpen U-100 Insulin aspart 100 unit/mL (3 mL) subcutaneous RxNorm: 3150615 Inject 10 Unit(s) Subcutaneous QHS every night at bedtime with nighttime snack 04/08/20 022 Inactive Novolog Flexpen U-100 Insulin aspart 100 unit/mL (3 mL) subcutaneous RxNorm: 2086274 Inject 42 Unit(s) Subcutaneous TID in addition to sliding scale 04/08/20 022 Inactive d/c 36u albuterol sulfate HFA 90 mcg/actuation aerosol inhaler RxNorm: 4788813 Take 2 Puff(s) Inhalation Q4H every four hours as needed as needed for SOB, cough, or wheezing 04/07/20 030 Active Banophen 50 mg capsule RxNorm: 1508790 Take 1 Capsule(s) Oral Q6H every 6 hours as needed 04/06/20 023 Inactive diphenhydramine 50 mg tablet RxNorm: 4576312 Take 1 Tablet(s) Oral Q6H every 6 hours as needed 04/06/20 022 Inactive diphenhydramine 50 mg tablet RxNorm: 3894490 1 Tablet(s) Oral Q6H every 6 hours as needed 04/06/20 022 Inactive Abilify 15 mg tablet RxNorm: 413023 1/2 Tablet(s) Oral QD 03/10/20 023 Inactive Shingrix (PF) 50 mcg/0.5 mL intramuscular suspension, kit RxNorm: 0782925 Administer 1/2 Milliliter(s) Intramuscular QD one time shingrix step 2 ( step 1 given 11/04/21) WITH needle - Nursing please administer upon arrival and once administered post a bridge message with date of administration, rn trauma, expiration date, and lot# so we can update [facility] 02/18/20 22 022 Inactive dispense with needle Shingrix (PF) 50 mcg/0.5 mL intramuscular suspension, kit RxNorm: 2469024 Administer 1/2 Milliliter(s) Intramuscular QD one time shingrix step 2 ( step 1 given 11/04/21) WITH needle - Nursing please administer upon arrival and once administered post a bridge message with date of administration, rn trauma, expiration date, and lot# so we can update [facility] 02/18/20 22 022 Inactive dispense with needle polyethylene glycol 3350 17 gram/dose oral powder RxNorm: 371232 Take 17=1 capful Gram(s) Oral QD mix with 4-8oz of liquid 01/08/20 22 023 Inactive take this in addition to BID prn order Lyrica 100 mg capsule RxNorm: 278845 Take 1 Capsule(s) Oral QAM every morning 01/08/20 22 022 Inactive d/c 50mg dose acetaminophen 500 mg tablet RxNorm: 145721 Take 1 Tablet(s) Oral TID 01/08/20 22 022 Inactive d/c PRN order Lyrica 150 mg capsule RxNorm: 073699 Take 1 Capsule(s) Oral QHS every night at bedtime 01/08/20 22 023 Inactive d/c 100mg dose Abilify 5 mg tablet RxNorm: 038257 Take 1 Tablet(s) Oral QD take 1 tab po QD #30 refill 5 dx: MDD 12/12/19 22 022 Inactive Abilify 5 mg tablet RxNorm: 535674 Take 1 Tablet(s) Oral QD take 1 tab po QD #30 refill 5 dx: MDD 12/12/19 22 022 Inactive Novolog Flexpen U-100 Insulin aspart 100 unit/mL (3 mL) subcutaneous RxNorm: 5035710 Inject 42 Unit(s) Subcutaneous TID in addition to sliding scale 12/10/19 22 022 Inactive d/c 36u chlorthalidone 25 mg tablet RxNorm: 773059 Take 1 Tablet(s) Oral QAM every morning 12/10/19 22 023 Inactive pregabalin 50 mg capsule RxNorm: 483080 Take 1 Capsule(s) Oral QAM every morning 11/12/19 22 022 Inactive tetanus-diphtheria toxoids-Td 2 Lf unit-2 Lf unit/0.5 mL IM suspension RxNorm: 139 Take 0.5 Miscellaneous Intramuscular 11/12/19 22 022 Inactive need tdap - nursing to administer upon arrival pregabalin 50 mg capsule RxNorm: 157739 Take 1 Capsule(s) Oral QAM every morning 10/16/19 22 022 Inactive pregabalin 50 mg capsule RxNorm: 360792 Take 1 Capsule(s) Oral QAM every morning 10/16/19 22 022 Inactive pregabalin 50 mg capsule RxNorm: 414624 1 Capsule(s) Oral QAM every morning 10/15/19 22 022 Inactive Shingrix (PF) 50 mcg/0.5 mL intramuscular suspension, kit RxNorm: 7537603 Administer 1/2 Milliliter(s) Intramuscular one time Nursing please administer upon arrival and once administered post a bridge message with date of administration, rn trauma, expiration date, and lot# so we can update [facility]. 10/09/19 22 022 Inactive shingrix step 1 Shingrix (PF) 50 mcg/0.5 mL intramuscular suspension, kit RxNorm: 8986660 Administer 1/2 Milliliter(s) Intramuscular one time Nursing please administer upon arrival and once administered post a bridge message with date of administration, rn trauma, expiration date, and lot# so we can update [facility]. 10/09/19 22 022 Inactive shingrix step 1 cholecalciferol (vitamin D3) 1,250 mcg (50,000 unit) capsule RxNorm: 230217 Take 1 Capsule(s) Oral QW once a [...] aspart 100 unit/mL (3 mL) subcutaneous RxNorm: 2012766 Inject 10 Unit(s) Subcutaneous QHS every night at bedtime with nighttime snack 10/08/19 22 022 Inactive Shingrix (PF) 50 mcg/0.5 mL intramuscular suspension, kit RxNorm: 4055637 ADMINISTER 2-DOSE SERIES PER CDC GUIDELINES 10/08/19 22 Active Shingrix (PF) 50 mcg/0.5 mL intramuscular suspension, kit RxNorm: 2317050 ADMINISTER 2-DOSE SERIES PER CDC GUIDELINES 10/08/19 22 Inactive Novolog Flexpen U-100 Insulin aspart 100 unit/mL (3 mL) subcutaneous RxNorm: 2667991 Inject 36 Unit(s) Subcutaneous TID in addition to sliding scale 10/08/19 Inactive Novofine Autocover 30 gauge x 1/3 needle RxNorm: Use 1 Miscellaneous UD as directed Use 1 needle as directed to administer insulin 5 times a day Dx:E11.42. 10/03/19 Inactive ok to substitute with any covered alternative pen needle benzoyl peroxide 10 % topical cleanser RxNorm: 760675 Apply 1 Application Topical QD apply to face, wash rinse and dry once daily (may change to QOD if drying) 08/19/19 022 Inactive (%covered by insurance) #60ml refill 11 dx: acne benzoyl peroxide 10 % topical cleanser RxNorm: 071400 Apply 1 Application Topical QD apply to face, wash rinse and dry once daily (may change to QOD if drying) 08/19/19 022 Inactive (%covered by insurance) #60ml refill 11 dx: acne benzoyl peroxide 10 % topical cleanser RxNorm: 072859 Apply 1 Application Topical QD apply to face, wash rinse and dry once daily (may change to QOD if drying) 08/19/19 22 022 Inactive (%covered by insurance) #60ml refill 11 dx: acne Lyrica 50 mg capsule RxNorm: 556375 Take 1 Capsule(s) Oral QAM every morning Take 1 capsule by mouth once daily 08/19/19 22 022 Inactive benzoyl peroxide 10 % topical cleanser RxNorm: 116202 Apply 1 Application Topical QD apply to face, wash rinse and dry once daily (may change to QOD if drying) 08/19/19 22 022 Inactive (%covered by insurance) #60ml refill 11 dx: acne Lyrica 100 mg capsule RxNorm: 765539 Take 1 Capsule(s) Oral QHS every night at bedtime Take 1 capsule by mouth once daily at bedtime 08/19/19 22 022 Inactive Lyrica 100 mg capsule RxNorm: 630115 Take 1 Capsule(s) Oral QHS every night at bedtime Take 1 capsule by mouth once daily at bedtime 08/16/19 22 022 Inactive Lyrica 50 mg capsule RxNorm: 915995 Take 1 Capsule(s) Oral QAM every morning Take 1 capsule by mouth once daily 08/16/19 22 022 Inactive Levemir FlexTouch U-100 Insulin 100 unit/mL (3 mL) subcutaneous pen RxNorm: 074493 Inject 86 Unit(s) Subcutaneous BID 08/05/19 22 022 Inactive d/c 83units BID Lyrica 100 mg capsule RxNorm: 259460 Take 1 Capsule(s) Oral QHS every night at bedtime Take 1 capsule by mouth once daily at bedtime 07/14/19 22 022 Inactive Lyrica 50 mg capsule RxNorm: 984186 Take 1 Capsule(s) Oral QAM every morning Take 1 capsule by mouth once daily 07/14/19 22 022 Inactive Levemir FlexTouch U-100 Insulin 100 unit/mL (3 mL) subcutaneous pen RxNorm: 455902 Inject 83 Unit(s) Subcutaneous BID 07/08/19 22 [...] 30 mg tablet,extended release 24 hr RxNorm: 668249 Take 1 Tablet(s) Oral QD 05/05/20 21 024 Inactive hydralazine 50 mg tablet RxNorm: 930854 Take 1 Tablet(s) Oral QID 05/05/20 21 022 Inactive venlafaxine ER 225 mg tablet,extended release 24 hr RxNorm: 275490 Take 1 Tablet(s) Oral QD 05/05/20 21 021 Inactive venlafaxine ER 225 mg tablet,extended release 24 hr RxNorm: 040957 Take 1 Tablet(s) Oral QD 05/05/20 21 022 Inactive hydralazine 50 mg tablet RxNorm: 925716 Take 1 Tablet(s) Oral QID 05/05/20 21 021 Inactive aspirin 81 mg tablet,delayed release RxNorm: 932991 Take 1 Tablet(s) Oral QD 03/31/20 21 022 Inactive Zetia 10 mg tablet RxNorm: 908387 Take 1 Tablet(s) Oral QD 03/31/20 21 024 Inactive Vitamin D2 1,250 mcg (50,000 unit) capsule RxNorm: 0346653 Take 1 Capsule(s) Oral QW once a week x 12 weeks 03/31/20 022 Inactive Vitamin D2 1,250 mcg (50,000 unit) capsule RxNorm: 5923647 Take 1 Capsule(s) Oral QW once a week 03/31/20 Inactive Zetia 10 mg tablet RxNorm: 624956 Take 1 Tablet(s) Oral QD 03/31/20 Inactive hydralazine 25 mg tablet RxNorm: 242950 Take 1 Tablet(s) Oral QID 03/31/20 021 Inactive hydralazine 25 mg tablet RxNorm: 553509 Take 1 Tablet(s) Oral QID 03/31/20 Inactive hydralazine 10 mg tablet RxNorm: 285421 Take 1 Tablet(s) Oral QID 03/03/20 021 Inactive cephalexin 500 mg tablet RxNorm: 965236 Take 1 Tablet(s) Oral QID 02/27/20 021 Inactive cephalexin 500 mg tablet RxNorm: 787397 Take 1 Tablet(s) Oral QID 02/27/20 021 Inactive lisinopril 40 mg tablet RxNorm: 195854 Take 1 Tablet(s) Oral QD 02/11/20 023 Inactive Eliquis 5 mg tablet RxNorm: 6028123 Take 1 Tablet(s) Oral BID 01/05/20 022 Inactive Eliquis 5 mg tablet RxNorm: 1445907 Take 2 Tablet(s) Oral QD 01/01/20 21 021 Inactive Lyrica 50 mg capsule RxNorm: 666055 Take 1 Capsule(s) Oral QAM every morning 12/24/19 21 021 Inactive Lyrica 100 mg capsule RxNorm: 770159 Take 1 Capsule(s) Oral QHS every night at bedtime 12/24/19 21 021 Inactive clotrimazole 1 % topical cream RxNorm: 522639 Apply to right foot and toes Topical BID 12/04/19 21 023 Inactive metoprolol succinate ER 200 mg tablet,extended release 24 hr RxNorm: 308121 Take 1 Tablet(s) Oral QD 12/04/19 21 023 Inactive ciprofloxacin 500 mg tablet RxNorm: 120146 Take 1 Tablet(s) Oral QD 11/30/19 21 021 Inactive DX ofloxacin otic drops Accu-Chek Guide test strips RxNorm: USE 1 TO CHECK GLUCOSE 4 TIMES DAILY AND NEEDED 11/15/19 21 023 Inactive Blood Glucose Test strips RxNorm: Use 1 Test Strip QID at PRN 11/05/19 21 023 Inactive E11.42 lisinopril 30 mg tablet RxNorm: 402953 Take 1 Tablet(s) Oral QD 10/30/19 21 021 Inactive lisinopril 20 mg tablet RxNorm: 326499 Take 1 Tablet(s) Oral QD 10/23/19 21 021 Inactive lisinopril 20 mg tablet RxNorm: 761987 Take 1 Tablet(s) Oral QD 10/23/19 21 021 Inactive lisinopril 10 mg tablet RxNorm: 441358 Take 1 Tablet(s) Oral QD 10/02/19 21 021 Inactive icosapent ethyl 1 gram capsule RxNorm: 3681266 Take 2 Capsule(s) (2 gm) Oral BID with meals 09/12/19 21 024 Inactive Okay to dispense one 2gm tab if you have that available. icosapent ethyl 1 gram capsule RxNorm: 8016337 Take 2 Capsule(s) Oral BID 09/12/19 21 021 Inactive Okay to dispense one 2gm tab if you have that available. amlodipine 10 mg tablet RxNorm: 496678 Take 1 Tablet(s) Oral QD 09/04/19 21 022 Inactive aspirin 81 mg tablet,delayed release RxNorm: 663181 Take 1 Tablet(s) Oral QD 09/04/19 21 021 Inactive Levemir FlexTouch U-100 Insulin 100 unit/mL (3 mL) subcutaneous pen RxNorm: 501001 Inject 150 Unit(s) Subcutaneous BID 09/04/19 21 022 Inactive venlafaxine ER 150 mg tablet,extended release 24 hr RxNorm: 944478 Take 1 Tablet(s) Oral QD 09/04/19 Inactive clotrimazole-betame thasone 1 %-0.05 % topical cream RxNorm: 359399 Apply to rash on red area on left abdomen/chest Topical BID 08/10/19 21 Inactive amlodipine 5 mg tablet RxNorm: 350578 Take 1 Tablet(s) Oral QD 07/31/19 21 Inactive cephalexin 500 mg tablet RxNorm: 900586 Take 1 Tablet(s) Oral BID BID - Twice Daily 07/31/19 Inactive Start 08/01/20 pantoprazole 40 mg tablet,delayed release RxNorm: 521200 Take 1 Tablet(s) Oral QAM every morning 07/08/19 022 Inactive senna 8.6 mg tablet RxNorm: 720751 Take 1 Tablet(s) Oral QD 07/08/19 022 Inactive carbamazepine 200 mg tablet RxNorm: 955161 Take 1 Tablet(s) Oral BID 07/08/19 022 Inactive clopidogrel 75 mg tablet RxNorm: 491847 Take 1 Tablet(s) Oral QD 07/08/19 021 Inactive Blood Glucose Test strips RxNorm: Use 1 Test Strip QID at PRN 07/08/19 Inactive E11.42 Novolog Flexpen U-100 Insulin aspart 100 unit/mL (3 mL) subcutaneous RxNorm: 8709780 Administer per sliding scale Milliliter(s) Subcutaneous TID 151-200: 10 u; 201-250: 20 u; 251-300: 30 u; 301-350: 40 u; 351-400: 50 u. 07/08/19 21 022 Inactive lisinopril 5 mg tablet RxNorm: 777462 Take 1 Tablet(s) Oral QD 07/08/19 021 Inactive Novolog Flexpen U-100 Insulin aspart 100 unit/mL (3 mL) subcutaneous RxNorm: 7479570 Inject 85 Unit(s) Subcutaneous TID 07/08/19 022 Inactive pravastatin 80 mg tablet RxNorm: 350116 Take 1 Tablet(s) Oral QHS every night at bedtime 07/08/19 023 Inactive clotrimazole 1 % topical cream RxNorm: 128540 Apply to bilateral groin areas Topical BID 07/08/19 022 Inactive metoprolol succinate ER 200 mg tablet,extended release 24 hr RxNorm: 796606 Take 1 Tablet(s) Oral QD 07/08/19 021 Inactive Vitamin D3 25 mcg (1,000 unit) tablet RxNorm: 940032 Take 1 Tablet(s) Oral QD 07/08/19 021 Inactive isosorbide dinitrate 30 mg tablet RxNorm: 903010 Take 1 Tablet(s) Oral QD 07/08/19 021 Inactive Levemir FlexTouch U-100 Insulin 100 unit/mL (3 mL) subcutaneous pen RxNorm: 890841 Inject 140 Unit(s) Subcutaneous BID 07/08/19 021 Inactive torsemide 20 mg tablet RxNorm: 492515 Take 1 Tablet(s) Oral QD 07/08/19 023 Inactive venlafaxine 75 mg tablet RxNorm: 675756 Take 1 Tablet(s) Oral QD 07/08/19 021 Inactive acetaminophen 500 mg tablet RxNorm: 963335 Take 1 Tablet(s) Oral TID as needed for headache 06/18/19 021 Inactive acetaminophen 500 mg tablet RxNorm: 324721 Take 1 Tablet(s) Oral TID as needed for headache 06/18/19 021 Inactive Lyrica 100 mg capsule RxNorm: 959292 Take 1 Capsule(s) Oral QHS every night at bedtime 06/11/19 021 Inactive Lyrica 50 mg capsule RxNorm: 581746 Take 1 Capsule(s) Oral QAM every morning 06/10/19 021 Inactive hydrocortisone 2.5 % topical cream RxNorm: 564172 Apply to bilateral groin creases Topical BID 05/15/20 20 021 Inactive clotrimazole 1 % topical cream RxNorm: 014888 Apply to bilateral groin areas Topical BID 05/15/20 20 Inactive Lyrica 50 mg capsule RxNorm: 226321 Take 1 Capsule(s) Oral QAM every morning 05/14/20 20 020 Inactive Lyrica 100 mg capsule RxNorm: 047647 Take 1 Capsule(s) Oral QHS every night [...] Inactive Nystop 100,000 unit/gram topical powder RxNorm: 596415 Apply to abd folds, under breasts and L side of groin Topical BID x 14 days, then BID PRN 04/08/20 20 Inactive dx: yeast dermatitis Lyrica 100 mg capsule RxNorm: 200519 Take 1 Capsule(s) Oral QHS every night at bedtime 03/13/20 20 Inactive Lyrica 50 mg capsule RxNorm: 599793 Take 1 Capsule(s) Oral QAM every morning 03/13/20 20 020 Inactive ketoconazole 2 % shampoo RxNorm: 382170 Apply Topical two times a week with showers 03/11/20 20 024 Inactive cholecalciferol (vitamin D3) 50 mcg (2,000 unit) tablet RxNorm: 944086 Take 1 Tablet(s) Oral QD 03/11/20 20 021 Inactive Zetia 10 mg tablet RxNorm: 868490 Take 1 Tablet(s) Oral QD 03/07/20 20 Inactive Zetia 10 mg tablet RxNorm: 175350 Take 1 Tablet(s) Oral QD 03/07/20 20 Inactive Lyrica 50 mg capsule RxNorm: 645706 Take 1 Capsule(s) Oral QAM every morning 02/15/20 20 Inactive Lyrica 100 mg capsule RxNorm: 070641 Take 1 Capsule(s) Oral QHS every night at bedtime 02/15/20 20 Inactive Lyrica 100 mg capsule RxNorm: 010008 Take 1 Capsule(s) Oral QHS every night at bedtime 02/15/20 Inactive Lyrica 50 mg capsule RxNorm: 743512 Take 1 Capsule(s) Oral QAM every morning 02/15/20 Inactive polyethylene glycol 3350 17 gram/dose oral powder RxNorm: 295740 Take 17=1 capful Gram(s) Oral BID as needed mix with 4-8oz of liquid 06/12/19 22 024 Inactive metoprolol succinate ER 200 mg tablet,extended release 24 hr RxNorm: 323203 Take 1 Tablet(s) Oral QD 08/12/19 23 Active loperamide 2 mg capsule RxNorm: 453226 Take 1 Capsule(s) Oral QID as needed 06/12/19 22 Active hydralazine 50 mg tablet RxNorm: 137373 Take 1 Tablet(s) Oral QID 08/12/19 23 Active venlafaxine ER 75 mg capsule,extended release 24 hr RxNorm: 946485 Take 3 Capsule(s) Oral QD 06/12/19 22 023 Inactive icosapent ethyl 1 gram capsule RxNorm: 6896485 Take 2 Capsule(s) (2 gm) Oral BID with meals 10/07/19 23 023 Inactive Okay to dispense one 2gm tab if you have that available. Levemir FlexTouch U-100 Insulin 100 unit/mL (3 mL) subcutaneous pen RxNorm: 080443 Inject 80 Unit(s) Subcutaneous BID 07/14/19 23 023 Inactive Novolog Flexpen U-100 Insulin aspart 100 unit/mL (3 mL) subcutaneous RxNorm: [id number] Insert 30 Unit(s) Subcutaneous TID with meals 10/08/19 22 022 Inactive Medication Administered No Medication Administered data Procedures Procedure Codes Date DEBRIDE NAIL 6 OR MORE CPT-4: 41927 SYS BP LESS 140 CPT-4: G8752 06/15/2023 CUI BP LESS 90 CPT-4: G8754 06/15/2023 Vital Signs Date Vital 06/15/2023 Blood Pressure 1: 120/60 Code: 8 480-6 Heart Rate 1: 78 bpm Code: 8867-4 Reason For Visit No Reason For Visit data Encounters Encounter Performer Location Location Address Codes Date ([address]) Home or Residence Visit Est Pt - Moderate Level, 40 mins Diagnosis: Hx of deep venous thrombosis[ICD10: Z86.718] Diagnosis: Diabetic neuropathy associated with type 2 diabetes mellitus[ICD10: E11.40] Diagnosis: Constipation by delayed colonic transit[ICD10: K59.01] Diagnosis: Onychogryposis[ICD1 0: L60.2] Diagnosis: Type 2 diabetes mellitus with diabetic polyneuropathy, with long-term current use of insulin[ICD10: E11.42] Harrison Munson [facility] [address] [place] [address] CPT-4: 38930 06/15/2023 Plan of Care Planned Activity Notes Codes Status Date Appointment: Sandra Clark WPtel: [address] Telehealth Psych Follow Up 12/09 Appointment: Tapan Shirley WPtel: [address] [facility] 10/26/2022 Referral: [facility] WPtel: [address], [address] [id number] Referral Records Received 09/21/2022 Appointment: Tapan Shirley WPtel: [address] [facility] [address] [id number] [place] F/U 08/11/2022 Appointment: Tapan Shirley WPtel: [address] [facility] [address] [id number] [place] F/U 07/14/2022 Appointment: Tapan Shirley WPtel: [address] [facility] 300 [id number] [place] F/U 02/10/2022 Referral: [facility] WPtel: [address] [facility] [address] [id number] [place] Referral Completed 05/28/2021 Referral: General Cardiology Referral Complet ed 01/03/2021 Referral: General Psychologist Referral Close d Referral: General Psychiatrist Referral Patient/Family Scheduling Appointment Instructions Comment Date Leonid is a Male being seen living at [facility]. Initial BPS visit 01/2020. PMHx including DMII, CAD w/ 5 stents, Depression, Seizure Disorder and CKD stage 3. He moved into [facility] in 12/2019 but after a hospitalization 05/2021 he moved to the psychiatric to have closer nursing attention. Sister Jyotsna involved in his care cell# [phone] Guardian: Giulia (tapan met in person 09/01/21), [...] or if they prefer primary care to refill. Onychogryposis Toenails debrided today. Right foot 1. [...] bowel medications. Will refill the PRN Miralax today. Diabetic neuropathy associated with type 2 diabetes [...] of time. See VAI and orders to details. . 06/15/2023
--- OUTSIDE RECORDS SUMMARY | 2023-11-03 11:25 | XMS_ITS | CCD ---
Author Name Cecilio Durham feliberto Address [address] [place] [address] Phone Organization [facility] Phone Care Team Providers Care Tactical/Mobile Watch Officer Name Role Phone Harrison Durham Primary Care Provider Leona vailable Harrison Durham Chronic Care Management U navailable Summary Purpose DataExchange Insurance Providers Payer name Policy type / Coverage type Covered libertarian ID Effective Begin Date Effective End Date Medicare [place] Medicare Part B [id number] Unknown Unknown Medicaid [place] Medicare Part B [id number] Unknown Unknown Family history Sister Brittany Suggs [...] Unknown Correction 09/03/[address]: 6886589 Non-Smoker / No History of Smoking 09/02/[address]: 247215282 No Alcohol Consum ption 09/02/2020 Allergies, Adverse Reactions, Alerts Substance Reaction Codes Entered Date Inactivated Date Status * NO KNOWN FOOD ALLERGIES Unknown 07/13/2023 No Inactive Date Active LISINOPRIL RxNorm: 56502 02/12/2020 No Inactive Da te Active Metformin [...] 08/10/2023 Active Coronary artery disease invo lving [place] coronary artery of [place] heart, angina presence unspecified ICD-10: I25.10 ICD-9: [...] ICD-10: F81.9 ICD-9: 315.2 03/03/2023 Active 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 ICD-10: Z79.899 ICD-9: V58.69 [...] Fill Instructions rosuvastatin 40 mg tablet RxNorm: 636147 Take 1 Tablet(s) Oral QPM every evening 07/13/19 24 No Stop Date Active ezetimibe 10 mg tablet RxNorm: 297922 Take 1 Tablet(s) Oral QD 07/13/19 24 No Stop Date Active bisacodyl 10 mg rectal suppository RxNorm: 077232 Insert 1 Suppository Rectal QD as needed 07/13/19 24 No Stop Date Active polyethylene glycol 3350 17 gram/dose oral powder RxNorm: 788708 Take 17 Gram(s) Oral BID as needed mix in 4-8ox water 07/13/19 24 No Stop Date Active ketoconazole 2 % shampoo RxNorm: 548499 Apply 1 Application Topical UD as directed 07/13/19 24 No Stop Date Active aripiprazole 15 mg tablet RxNorm: 831994 Take 1/2 Tablet(s) Oral QD 07/13/19 24 No Stop Date Active Ozempic 1 mg/dose (4 mg/3 mL) subcutaneous pen injector RxNorm: 3256158 Inject 1 Milligram(s) Subcutaneous QW once a week 07/13/19 24 No Stop Date Active Guaifenesin AC 10 mg-100 mg/5 mL oral liquid RxNorm: 584056 Take 10 Milliliter(s) Oral Q4H every four hours as needed 07/13/19 24 No Stop Date Active isosorbide mononitrate ER 60 mg tablet,extended release 24 hr RxNorm: 474110 Take 1 Tablet(s) Oral QD 07/13/19 24 No Stop Date Active ammonium lactate 12 % topical cream RxNorm: 590718 Apply 1 Application Topical BID 07/13/19 24 No Stop Date Active hydrocortisone 2.5 % topical cream RxNorm: 191072 Apply 1 Application Topical BID as needed 07/13/19 24 No Stop Date Active rosuvastatin 20 mg sprinkle capsule RxNorm: 2559280 Take 1 Capsule(s) Oral QD 07/13/19 24 No Stop Date Active Vascepa 1 gram capsule RxNorm: 5548697 Take 2 Capsule(s) Oral BID 07/13/19 24 No Stop Date Active venlafaxine ER 75 mg capsule,extended release 24 hr RxNorm: 217503 Take 3 Capsule(s) Oral QD 07/13/19 24 No Stop Date Active Basaglar KwikPen U-100 Insulin 100 unit/mL (3 mL) subcutaneous RxNorm: 8558963 Inject 30U SubQ twice daily 07/07/19 24 025 Active Please dispense one month supply. Basaglar KwikPen U-100 Insulin 100 unit/mL (3 mL) subcutaneous RxNorm: 7496457 Inject 30U SubQ twice daily 07/07/19 24 024 Inactive Please dispense one month supply. pregabalin 150 mg capsule RxNorm: 229733 Take 1 Capsule(s) Oral QHS every night at bedtime 07/05/19 24 024 Active pregabalin 150 mg capsule RxNorm: 189321 Take 1 Capsule(s) Oral QHS every night at bedtime 07/05/19 24 024 Inactive polyethylene glycol 3350 17 gram/dose oral powder RxNorm: 710853 Take 1 Packet Oral QD as needed (1 packet = 17g) mix with 4-8oz of liquid 06/15/19 24 024 Inactive bisacodyl 10 mg rectal suppository RxNorm: 296587 Insert one suppository per rectum once daily as needed for constipation 06/15/19 24 024 Inactive bisacodyl 10 mg rectal suppository RxNorm: 763640 Insert one suppository per rectum once daily as needed for constipation 06/15/19 24 024 Inactive pregabalin 100 mg capsule RxNorm: 327642 Take 1 Capsule(s) Oral QAM every morning 04/27/20 23 024 Inactive Levemir FlexPen 100 unit/mL (3 mL) solution subcutaneous insulin pen RxNorm: 175526 Inject 30 Unit(s) Subcutaneous BID 04/27/20 23 024 Inactive rosuvastatin 40 mg tablet RxNorm: 161429 Take 1 Tablet(s) Oral QPM every evening 04/16/20 024 Inactive D/C rosuvastatin 20mg venlafaxine ER 75 mg capsule,extended release 24 hr RxNorm: 908220 Take 3 Capsule(s) Oral QD 04/14/20 023 Inactive pregabalin 100 mg capsule RxNorm: 032517 Take 1 Capsule(s) Oral QAM every morning [...] meter clotrimazole 1 % topical cream RxNorm: 127861 Take apply topically to abdominal folds twice daily for 14 days 03/12/20 024 Inactive Ozempic 1 mg/dose (4 mg/3 mL) subcutaneous pen injector RxNorm: 3127172 Inject 1 Milligram(s) Subcutaneous QW once a week 03/11/20 023 Inactive rosuvastatin 20 mg tablet RxNorm: 632601 Take 1 Tablet(s) Oral QD 02/26/20 23 023 Inactive d/c pravastatin 80mg Ozempic 1 mg/dose (4 mg/3 mL) subcutaneous pen injector RxNorm: 5080271 Inject 1 Milligram(s) Subcutaneous QW once a week 02/20/20 23 023 Inactive pregabalin 150 mg capsule RxNorm: 154063 Take 1 Capsule(s) Oral HS at bed time 02/19/20 23 023 Inactive pregabalin 100 mg capsule RxNorm: 176871 Take 1 Capsule(s) Oral QAM every morning 02/18/20 23 023 Inactive venlafaxine ER 75 mg capsule,extended release 24 hr RxNorm: 865524 Take 3 Capsule(s) Oral QD 09/20 023 Inactive FreeStyle Chema 2 Sensor kit RxNorm: use as directed 02/04/20 23 023 Inactive FreeStyle Chema 2 Sensor kit RxNorm: use as directed 02/04/20 024 Inactive fluconazole 150 mg tablet RxNorm: 085157 Take 1 Tablet(s) Oral on day 3 and on day 6 02/03/20 024 Active chlorthalidone 25 mg tablet RxNorm: 799253 Take 1 Tablet(s) Oral QAM every morning 02/03/20 No Stop Date Active venlafaxine ER 150 mg capsule,extended release 24 hr RxNorm: 147031 Take 1 Capsule(s) Oral QD 02/03/20 023 Inactive acetaminophen 500 mg tablet RxNorm: 190010 1 TABLET ORALLY 3 TIMES DAILY (MAX APAP:4GM/24HR) 12/15/19 23 023 Inactive potassium chloride ER 20 mEq tablet,extended release RxNorm: 391851 Take 1 Tablet(s) Oral BID 12/09/19 024 Inactive d/c 20mEq once daily (sent from hospital) clotrimazole 1 % topical cream RxNorm: 976760 apply 1g topically to top of feet and in between toes BID 12/09/19 23 023 Inactive nystatin 100,000 unit/gram topical powder RxNorm: 533813 APPLY TO AFFECTED AREAS TOPICALLY 2 TIMES DAILY 11/21/19 23 024 Inactive Nystop 100,000 unit/gram topical powder RxNorm: 107261 Apply to abd folds, under breasts and L side of groin Topical BID x 14 days, then BID PRN 11/20/19 23 023 Inactive dx: yeast dermatitis [place] Ultra Strength 4 %-30 %-10 % topical cream RxNorm: 679094 Apply 1 Gram(s) Topical QID PRN to feet and legs for neuropathic pain 11/11/19 23 024 Active hydrocortisone 2.5 % topical cream RxNorm: 916282 Apply 1/2 Gram(s) Topical BID as needed 11/10/19 23 024 Inactive clotrimazole 1 % topical cream RxNorm: 522888 Apply 1/2 Gram(s) Topical BID Apply to affected areas of groin, periarea, and abdominal topically 2 times daily 11/10/19 23 023 Inactive Humulin R U-500 (Concentrated) Insulin 500 unit/mL subcutaneous soln RxNorm: 895210 Inject 100 Unit(s) Subcutaneous TID 10/07/19 024 Inactive Levemir FlexPen 100 unit/mL (3 mL) solution subcutaneous insulin pen RxNorm: 308759 Inject 30 Unit(s) Subcutaneous BID 10/07/19 023 Inactive Ozempic 0.25 mg or 0.5 mg (2 mg/3 mL) subcutaneous pen injector RxNorm: 7304220 Inject 1/2 Milligram(s) Subcutaneous QW once a week 10/07/19 024 Inactive aripiprazole 15 mg tablet RxNorm: 798439 1/2 TAB (7.5MG) ORALLY DAILY (DX:MAJOR DEPRESSIVE DISORDER) 09/23/19 023 Inactive Lancets,Thin 28 gauge RxNorm: Use 1 as directed QID 09/15/19 23 024 Inactive Accu-Chek Guide test strips RxNorm: Use 1 Test Strip QID 09/15/19 23 023 Inactive ok to substitute with any covered alternative test strip torsemide 20 mg tablet RxNorm: 115980 Take 1 Tablet(s) Oral BID 09/09/19 024 Inactive d/c once daily dosing carvedilol 25 mg tablet RxNorm: 846397 Take 1 Tablet(s) Oral QD 08/25/19 23 024 Inactive pregabalin 150 mg capsule RxNorm: 259636 1 Capsule(s) Oral HS at bed time 08/18/19 023 Inactive pregabalin 100 mg capsule RxNorm: 317452 1 Capsule(s) Oral QAM every morning 08/18/19 023 Inactive carvedilol 25 mg tablet RxNorm: 954995 1 Tablet(s) Oral QD 07/28/19 23 023 Inactive lisinopril 20 mg tablet RxNorm: 959995 Give 1 Tablet(s) Oral QD 07/28/19 23 023 Inactive Lyrica 150 mg capsule RxNorm: 230771 Take 1 Capsule(s) Oral QHS every night at bedtime 07/19/19 23 023 Inactive d/c 100mg dose Diflucan 150 mg tablet RxNorm: 409928 Take 1 Tablet(s) Oral QD repeat on day 3 and 6 07/19/19 23 023 Inactive pregabalin 100 mg capsule RxNorm: 332469 Take 1 Capsule(s) Oral QAM every morning 07/19/19 23 023 Inactive gatifloxacin 0.5 % eye drops RxNorm: 343545 Instill 1 Drop(s) as directed TID Instill 1 drop in to affected eye(s) starting 1 day prior to surgery and continue until gone (do not exceed 4 weeks). 07/13/19 23 023 Inactive carvedilol 25 mg tablet RxNorm: 726858 2 Tablet(s) Oral BID 07/13/19 23 023 Inactive Humulin R Regular U-100 Insulin 100 unit/mL injection solution RxNorm: 705756 85 Unit(s) Injection TID 07/13/19 23 023 Inactive ketorolac 0.5 % eye drops RxNorm: 347523 Instill 1 Drop(s) as directed QID Instill 1 drop into affected eye(s) 4 times daily starting 1 day prior to surgery and continue until gone (do not exceed 4 weeks). 07/13/19 23 023 Inactive Diflucan 150 mg tablet RxNorm: 491621 Take 1 Tablet(s) Oral QD repeat on day 3 and 6 06/30/19 23 023 Inactive Accu-Chek Guide test strips RxNorm: Use 1 Test Strip QID Use 1 test strip to monitor blood glucose 4 times daily and as needed. Dx:E11.42. 06/23/19 23 023 Inactive ok to substitute with any covered alternative test strip dextromethorphan-gu aifenesin 10 mg-100 mg/5 mL oral liquid RxNorm: 662449 Take 10 Milliliter(s) Oral every 4 hours as needed for cough 06/19/19 023 Inactive dextromethorphan-gu aifenesin 10 mg-100 mg/5 mL oral liquid RxNorm: 616302 Take 10 Milliliter(s) Oral every 4 hours as needed for cough 06/19/19 023 Inactive Lyrica 150 mg capsule RxNorm: 196240 Take 1 Capsule(s) Oral QHS every night at bedtime 06/18/19 023 Inactive d/c 100mg dose aripiprazole 15 mg tablet RxNorm: 603467 /2 TAB (7.5MG) ORALLY DAILY (DX:MAJOR DEPRESSIVE DISORDER) 06/05/19 023 Inactive pregabalin 100 mg capsule RxNorm: 513224 1 Capsule(s) Oral QAM every morning 06/02/19 023 Inactive Banophen 50 mg capsule RxNorm: 8153417 Take 1 Capsule(s) Oral Q6H every 6 hours as needed 05/19/19 23 No Stop Date Active Novolog Flexpen U-100 Insulin aspart 100 unit/mL (3 mL) subcutaneous RxNorm: 2475997 Inject 10 Unit(s) Subcutaneous QHS every night at bedtime with nighttime snack 04/08/20 022 Inactive Novolog Flexpen U-100 Insulin aspart 100 unit/mL (3 mL) subcutaneous RxNorm: 0608395 Inject 42 Unit(s) Subcutaneous TID in addition to sliding scale 04/08/20 022 Inactive d/c 36u albuterol sulfate HFA 90 mcg/actuation aerosol inhaler RxNorm: 8243320 Take 2 Puff(s) Inhalation Q4H every four hours as needed as needed for SOB, cough, or wheezing 04/07/20 030 Active Banophen 50 mg capsule RxNorm: 4198567 Take 1 Capsule(s) Oral Q6H every 6 hours as needed 04/06/20 023 Inactive diphenhydramine 50 mg tablet RxNorm: 8086206 Take 1 Tablet(s) Oral Q6H every 6 hours as needed 04/06/20 22 022 Inactive diphenhydramine 50 mg tablet RxNorm: 3504725 1 Tablet(s) Oral Q6H every 6 hours as needed 04/06/20 22 022 Inactive Abilify 15 mg tablet RxNorm: 365526 1/2 Tablet(s) Oral QD 03/10/20 22 023 Inactive Shingrix (PF) 50 mcg/0.5 mL intramuscular suspension, kit RxNorm: 5734635 Administer 1/2 Milliliter(s) Intramuscular QD one time shingrix step 2 ( step 1 given 11/04/21) WITH needle - Nursing please administer upon arrival and once administered post a bridge message 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, 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, expiration date, and lot# so we can update [facility] 02/18/20 22 022 Inactive dispense with needle Shingrix (PF) 50 mcg/0.5 mL intramuscular suspension, kit RxNorm: 0826534 Administer 1/2 Milliliter(s) Intramuscular QD one time shingrix step 2 ( step 1 given 11/04/21) WITH needle - Nursing please administer upon arrival and once administered post a bridge message with 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, 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, expiration date, and lot# so we can update [facility] 02/18/20 22 022 Inactive dispense with needle polyethylene glycol 3350 17 gram/dose oral powder RxNorm: 541241 Take 17=1 capful Gram(s) Oral QD mix with 4-8oz of liquid 01/08/20 22 023 Inactive take this in addition to BID prn order Lyrica 100 mg capsule RxNorm: 474263 Take 1 Capsule(s) Oral QAM every morning 01/08/20 22 022 Inactive d/c 50mg dose acetaminophen 500 mg tablet RxNorm: 281040 Take 1 Tablet(s) Oral TID 01/08/20 22 022 Inactive d/c PRN order Lyrica 150 mg capsule RxNorm: 825070 Take 1 Capsule(s) Oral QHS every night at bedtime 01/08/20 22 023 Inactive d/c 100mg dose Abilify 5 mg tablet RxNorm: 003965 Take 1 Tablet(s) Oral QD take 1 tab po QD #30 refill 5 dx: MDD 12/12/19 22 022 Inactive Abilify 5 mg tablet RxNorm: 747280 Take 1 Tablet(s) Oral QD take 1 tab po QD #30 refill 5 dx: MDD 12/12/19 22 022 Inactive Novolog Flexpen U-100 Insulin aspart 100 unit/mL (3 mL) subcutaneous RxNorm: 6768107 Inject 42 Unit(s) Subcutaneous TID in addition to sliding scale 12/10/19 22 022 Inactive d/c 36u chlorthalidone 25 mg tablet RxNorm: 396892 Take 1 Tablet(s) Oral QAM every morning 12/10/19 22 023 Inactive pregabalin 50 mg capsule RxNorm: 503119 Take 1 Capsule(s) Oral QAM every morning 11/12/19 22 022 Inactive tetanus-diphtheria toxoids-Td 2 Lf unit-2 Lf unit/0.5 mL IM suspension RxNorm: 139 Take 0.5 Miscellaneous Intramuscular 11/12/19 22 022 Inactive need tdap - nursing to administer upon arrival pregabalin 50 mg capsule RxNorm: 518456 Take 1 Capsule(s) Oral QAM every morning 10/16/19 22 022 Inactive pregabalin 50 mg capsule RxNorm: 506810 Take 1 Capsule(s) Oral QAM every morning 10/16/19 22 022 Inactive pregabalin 50 mg capsule RxNorm: 345007 1 Capsule(s) Oral QAM every morning 10/15/19 22 022 Inactive Shingrix (PF) 50 mcg/0.5 mL intramuscular suspension, kit RxNorm: 4558855 Administer 1/2 Milliliter(s) Intramuscular one time Nursing please administer upon arrival and once administered post a bridge message with 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 10/09/19 22 Inactive shingrix step 1 cholecalciferol (vitamin D3) 1,250 mcg (50,000 unit) capsule RxNorm: 940300 Take 1 Capsule(s) Oral QW once a [...] aspart 100 unit/mL (3 mL) subcutaneous RxNorm: 3743246 Inject 10 Unit(s) Subcutaneous QHS every night at bedtime with nighttime snack 10/08/19 22 Inactive Shingrix (PF) 50 mcg/0.5 mL intramuscular suspension, kit RxNorm: 8792242 ADMINISTER 2-DOSE SERIES PER CDC GUIDELINES 10/08/19 22 Active Shingrix (PF) 50 mcg/0.5 mL intramuscular suspension, kit RxNorm: 9271820 ADMINISTER 2-DOSE SERIES PER CDC GUIDELINES 10/08/19 22 Inactive Novolog Flexpen U-100 Insulin aspart 100 unit/mL (3 mL) subcutaneous RxNorm: 0003594 Inject 36 Unit(s) Subcutaneous TID in addition to sliding scale 10/08/19 22 Inactive Novofine Autocover 30 gauge x 1/3 needle RxNorm: Use 1 Miscellaneous UD as directed Use 1 needle as directed to administer insulin 5 times a day Dx:E11.42. 10/03/19 22 Inactive ok to substitute with any covered alternative pen needle benzoyl peroxide 10 % topical cleanser RxNorm: 049602 Apply 1 Application Topical QD apply to face, wash rinse and dry once daily (may change to QOD if drying) 08/19/19 22 022 Inactive (%covered by insurance) #60ml refill 11 dx: acne benzoyl peroxide 10 % topical cleanser RxNorm: 398982 Apply 1 Application Topical QD apply to face, wash rinse and dry once daily (may change to QOD if drying) 08/19/19 22 022 Inactive (%covered by insurance) #60ml refill 11 dx: acne benzoyl peroxide 10 % topical cleanser RxNorm: 183570 Apply 1 Application Topical QD apply to face, wash rinse and dry once daily (may change to QOD if drying) 08/19/19 22 022 Inactive (%covered by insurance) #60ml refill 11 dx: acne Lyrica 50 mg capsule RxNorm: 944909 Take 1 Capsule(s) Oral QAM every morning Take 1 capsule by mouth once daily 08/19/19 022 Inactive benzoyl peroxide 10 % topical cleanser RxNorm: 897290 Apply 1 Application Topical QD apply to face, wash rinse and dry once daily (may change to QOD if drying) 08/19/19 22 022 Inactive (%covered by insurance) #60ml refill 11 dx: acne Lyrica 100 mg capsule RxNorm: 102506 Take 1 Capsule(s) Oral QHS every night at bedtime Take 1 capsule by mouth once daily at bedtime 08/19/19 22 022 Inactive Lyrica 100 mg capsule RxNorm: 656813 Take 1 Capsule(s) Oral QHS every night at bedtime Take 1 capsule by mouth once daily at bedtime 08/16/19 022 Inactive Lyrica 50 mg capsule RxNorm: 457213 Take 1 Capsule(s) Oral QAM every morning Take 1 capsule by mouth once daily 08/16/19 Inactive Levemir FlexTouch U-100 Insulin 100 unit/mL (3 mL) subcutaneous pen RxNorm: 880072 Inject 86 Unit(s) Subcutaneous BID 08/05/19 22 022 Inactive d/c 83units BID Lyrica 100 mg capsule RxNorm: 733509 Take 1 Capsule(s) Oral QHS every night at bedtime Take 1 capsule by mouth once daily at bedtime 07/14/19 22 Inactive Lyrica 50 mg capsule RxNorm: 687766 Take 1 Capsule(s) Oral QAM every morning Take 1 capsule by mouth once daily 07/14/19 22 Inactive Levemir FlexTouch U-100 Insulin 100 unit/mL (3 mL) subcutaneous pen RxNorm: 770893 Inject 83 Unit(s) Subcutaneous BID 07/08/19 22 [...] test strip hydralazine 50 mg tablet RxNorm: 928541 Take 1 Tablet(s) Oral QID 05/05/20 022 Inactive venlafaxine ER 225 mg tablet,extended release 24 hr RxNorm: 271449 Take 1 Tablet(s) Oral QD 05/05/20 21 021 Inactive venlafaxine ER 225 mg tablet,extended release 24 hr RxNorm: 509820 Take 1 Tablet(s) Oral QD 05/05/20 022 Inactive isosorbide mononitrate ER 30 mg tablet,extended release 24 hr RxNorm: 742166 Take 1 Tablet(s) Oral QD 05/05/20 024 Inactive hydralazine 50 mg tablet RxNorm: 173389 Take 1 Tablet(s) Oral QID 05/05/20 Inactive aspirin 81 mg tablet,delayed release RxNorm: 354165 Take 1 Tablet(s) Oral QD 03/31/20 022 Inactive Vitamin D2 1,250 mcg (50,000 unit) capsule RxNorm: 4062405 Take 1 Capsule(s) Oral QW once a week x 12 weeks 03/31/20 022 Inactive Vitamin D2 1,250 mcg (50,000 unit) capsule RxNorm: 1753626 Take 1 Capsule(s) Oral QW once a week 03/31/20 021 Inactive Zetia 10 mg tablet RxNorm: 764449 Take 1 Tablet(s) Oral QD 03/31/20 024 Inactive Zetia 10 mg tablet RxNorm: 902512 Take 1 Tablet(s) Oral QD 03/31/20 021 Inactive hydralazine 25 mg tablet RxNorm: 028789 Take 1 Tablet(s) Oral QID 03/31/20 021 Inactive hydralazine 25 mg tablet RxNorm: 005007 Take 1 Tablet(s) Oral QID 03/31/20 021 Inactive hydralazine 10 mg tablet RxNorm: 715345 Take 1 Tablet(s) Oral QID 03/03/20 021 Inactive cephalexin 500 mg tablet RxNorm: 439731 Take 1 Tablet(s) Oral QID 02/27/20 021 Inactive cephalexin 500 mg tablet RxNorm: 236350 Take 1 Tablet(s) Oral QID 02/27/20 021 Inactive lisinopril 40 mg tablet RxNorm: 661137 Take 1 Tablet(s) Oral QD 02/11/20 023 Inactive Eliquis 5 mg tablet RxNorm: 8273513 Take 1 Tablet(s) Oral BID 01/05/20 21 022 Inactive Eliquis 5 mg tablet RxNorm: 8670637 Take 2 Tablet(s) Oral QD 01/01/20 21 021 Inactive Lyrica 50 mg capsule RxNorm: 180397 Take 1 Capsule(s) Oral QAM every morning 12/24/19 21 021 Inactive Lyrica 100 mg capsule RxNorm: 696237 Take 1 Capsule(s) Oral QHS every night at bedtime 12/24/19 021 Inactive clotrimazole 1 % topical cream RxNorm: 159468 Apply to right foot and toes Topical BID 12/04/19 21 023 Inactive metoprolol succinate ER 200 mg tablet,extended release 24 hr RxNorm: 919832 Take 1 Tablet(s) Oral QD 12/04/19 21 023 Inactive ciprofloxacin 500 mg tablet RxNorm: 524979 Take 1 Tablet(s) Oral QD 11/30/19 021 Inactive DX ofloxacin otic drops Accu-Chek Guide test strips RxNorm: USE 1 TO CHECK GLUCOSE 4 TIMES DAILY AND NEEDED 11/15/19 21 023 Inactive Blood Glucose Test strips RxNorm: Use 1 Test Strip QID at PRN 11/05/19 21 023 Inactive E11.42 lisinopril 30 mg tablet RxNorm: 143311 Take 1 Tablet(s) Oral QD 10/30/19 21 021 Inactive lisinopril 20 mg tablet RxNorm: 571269 Take 1 Tablet(s) Oral QD 10/23/19 21 021 Inactive lisinopril 20 mg tablet RxNorm: 071038 Take 1 Tablet(s) Oral QD 10/23/19 21 021 Inactive lisinopril 10 mg tablet RxNorm: 157182 Take 1 Tablet(s) Oral QD 10/02/19 21 021 Inactive icosapent ethyl 1 gram capsule RxNorm: 8557432 Take 2 Capsule(s) (2 gm) Oral BID with meals 09/12/19 024 Inactive Okay to dispense one 2gm tab if you have that available. icosapent ethyl 1 gram capsule RxNorm: 2393770 Take 2 Capsule(s) Oral BID 09/12/19 21 021 Inactive Okay to dispense one 2gm tab if you have that available. amlodipine 10 mg tablet RxNorm: 071388 Take 1 Tablet(s) Oral QD 09/04/19 21 022 Inactive aspirin 81 mg tablet,delayed release RxNorm: 721898 Take 1 Tablet(s) Oral QD 09/04/19 21 021 Inactive Levemir FlexTouch U-100 Insulin 100 unit/mL (3 mL) subcutaneous pen RxNorm: 657354 Inject 150 Unit(s) Subcutaneous BID 09/04/19 21 022 Inactive venlafaxine ER 150 mg tablet,extended release 24 hr RxNorm: 135650 Take 1 Tablet(s) Oral QD 09/04/19 21 021 Inactive clotrimazole-betame thasone 1 %-0.05 % topical cream RxNorm: 171966 Apply to rash on red area on left abdomen/chest Topical BID 08/10/19 21 021 Inactive amlodipine 5 mg tablet RxNorm: 176800 Take 1 Tablet(s) Oral QD 07/31/19 21 021 Inactive cephalexin 500 mg tablet RxNorm: 889464 Take 1 Tablet(s) Oral BID BID - Twice Daily 07/31/19 21 021 Inactive Start 08/01/20 pantoprazole 40 mg tablet,delayed release RxNorm: 355322 Take 1 Tablet(s) Oral QAM every morning 07/08/19 21 022 Inactive senna 8.6 mg tablet RxNorm: 429757 Take 1 Tablet(s) Oral QD 07/08/19 022 Inactive carbamazepine 200 mg tablet RxNorm: 956487 Take 1 Tablet(s) Oral BID 07/08/19 022 Inactive clopidogrel 75 mg tablet RxNorm: 787590 Take 1 Tablet(s) Oral QD 07/08/19 021 Inactive Blood Glucose Test strips RxNorm: Use 1 Test Strip QID at PRN 07/08/19 21 Inactive E11.42 Novolog Flexpen U-100 Insulin aspart 100 unit/mL (3 mL) subcutaneous RxNorm: 2845509 Administer per sliding scale Milliliter(s) Subcutaneous TID 151-200: 10 u; 201-250: 20 u; 251-300: 30 u; 301-350: 40 u; 351-400: 50 u. 07/08/19 022 Inactive lisinopril 5 mg tablet RxNorm: 598613 Take 1 Tablet(s) Oral QD 07/08/19 021 Inactive Novolog Flexpen U-100 Insulin aspart 100 unit/mL (3 mL) subcutaneous RxNorm: 7891170 Inject 85 Unit(s) Subcutaneous TID 07/08/19 022 Inactive pravastatin 80 mg tablet RxNorm: 395284 Take 1 Tablet(s) Oral QHS every night at bedtime 07/08/19 023 Inactive clotrimazole 1 % topical cream RxNorm: 419253 Apply to bilateral groin areas Topical BID 07/08/19 21 022 Inactive metoprolol succinate ER 200 mg tablet,extended release 24 hr RxNorm: 017324 Take 1 Tablet(s) Oral QD 07/08/19 21 021 Inactive Vitamin D3 25 mcg (1,000 unit) tablet RxNorm: 105864 Take 1 Tablet(s) Oral QD 07/08/19 21 021 Inactive isosorbide dinitrate 30 mg tablet RxNorm: 589573 Take 1 Tablet(s) Oral QD 07/08/19 21 021 Inactive Levemir FlexTouch U-100 Insulin 100 unit/mL (3 mL) subcutaneous pen RxNorm: 352900 Inject 140 Unit(s) Subcutaneous BID 07/08/19 21 021 Inactive torsemide 20 mg tablet RxNorm: 701916 Take 1 Tablet(s) Oral QD 07/08/19 21 023 Inactive venlafaxine 75 mg tablet RxNorm: 834693 Take 1 Tablet(s) Oral QD 07/08/19 21 021 Inactive acetaminophen 500 mg tablet RxNorm: 687247 Take 1 Tablet(s) Oral TID as needed for headache 06/18/19 21 021 Inactive acetaminophen 500 mg tablet RxNorm: 851599 Take 1 Tablet(s) Oral TID as needed for headache 06/18/19 21 021 Inactive Lyrica 100 mg capsule RxNorm: 924262 Take 1 Capsule(s) Oral QHS every night at bedtime 06/11/19 21 021 Inactive Lyrica 50 mg capsule RxNorm: 866064 Take 1 Capsule(s) Oral QAM every morning 06/10/19 21 021 Inactive hydrocortisone 2.5 % topical cream RxNorm: 359567 Apply to bilateral groin creases Topical BID 05/15/20 20 021 Inactive clotrimazole 1 % topical cream RxNorm: 556325 Apply to bilateral groin areas Topical BID 05/15/20 20 021 Inactive Lyrica 50 mg capsule RxNorm: 092266 Take 1 Capsule(s) Oral QAM every morning 05/14/20 20 020 Inactive Lyrica 100 mg capsule RxNorm: 031221 Take 1 Capsule(s) Oral QHS every night [...] Inactive Nystop 100,000 unit/gram topical powder RxNorm: 293602 Apply to abd folds, under breasts and L side of groin Topical BID x 14 days, then BID PRN 04/08/20 20 Inactive dx: yeast dermatitis Lyrica 100 mg capsule RxNorm: 556073 Take 1 Capsule(s) Oral QHS every night at bedtime 03/13/20 20 Inactive Lyrica 50 mg capsule RxNorm: 822942 Take 1 Capsule(s) Oral QAM every morning 03/13/20 20 Inactive ketoconazole 2 % shampoo RxNorm: 781659 Apply Topical two times a week with showers 03/11/20 20 Inactive cholecalciferol (vitamin D3) 50 mcg (2,000 unit) tablet RxNorm: 329220 Take 1 Tablet(s) Oral QD 03/11/20 20 021 Inactive Zetia 10 mg tablet RxNorm: 947097 Take 1 Tablet(s) Oral QD 03/07/20 20 021 Inactive Zetia 10 mg tablet RxNorm: 530123 Take 1 Tablet(s) Oral QD 03/07/20 20 Inactive Lyrica 50 mg capsule RxNorm: 849345 Take 1 Capsule(s) Oral QAM every morning 02/15/20 20 Inactive Lyrica 100 mg capsule RxNorm: 462372 Take 1 Capsule(s) Oral QHS every night at bedtime 02/15/20 20 Inactive Lyrica 100 mg capsule RxNorm: 774751 Take 1 Capsule(s) Oral QHS every night at bedtime 02/15/20 20 Inactive Lyrica 50 mg capsule RxNorm: 164870 Take 1 Capsule(s) Oral QAM every morning 02/15/20 20 10/01/2 020 Inactive metoprolol succinate ER 200 mg tablet,extended release 24 hr RxNorm: 932147 Take 1 Tablet(s) Oral QD 08/12/19 23 Active loperamide 2 mg capsule RxNorm: 751841 Take 1 Capsule(s) Oral QID as needed 06/12/19 22 Active hydralazine 50 mg tablet RxNorm: 468655 Take 1 Tablet(s) Oral QID 08/12/19 23 Active venlafaxine ER 75 mg capsule,extended release 24 hr RxNorm: 259220 Take 3 Capsule(s) Oral QD 06/12/19 22 023 Inactive polyethylene glycol 3350 17 gram/dose oral powder RxNorm: 472654 Take 17=1 capful Gram(s) Oral BID as needed mix with 4-8oz of liquid 06/12/19 22 024 Inactive icosapent ethyl 1 gram capsule RxNorm: 7064864 Take 2 Capsule(s) (2 gm) Oral BID with meals 10/07/19 23 023 Inactive Okay to dispense one 2gm tab if you have that available. Levemir FlexTouch U-100 Insulin 100 unit/mL (3 mL) subcutaneous pen RxNorm: 839723 Inject 80 Unit(s) Subcutaneous BID 07/14/19 23 023 Inactive Novolog Flexpen U-100 Insulin aspart 100 unit/mL (3 mL) subcutaneous RxNorm: 3950778 Insert 30 Unit(s) Subcutaneous TID with meals 10/08/19 22 022 Inactive Medication Administered No Medication Administered data Procedures Procedure Codes Date DEBRIDE NAIL 1-5 CPT-4: 81532 08/10/2023 Vital Signs Date Vital 08/10/2023 Heart Rate 1: 73 bpm Code: 8867-4 SpO2: 92% Temperature: 36.7 (C) / 98.0 (F) Reason For Visit No Reason For Visit data Encounters Encounter Performer Location Location Address Codes Date ([address]) Home or Residence Visit Est Pt - Moderate Level, 40 mins Diagnosis: Lower extremity edema[ICD10: R60.0] Diagnosis: Major depression, recurrent[ICD10: F33.9] Diagnosis: Onychogryposis[I CD10: L60.2] Diagnosis: PVD (peripheral vascular disease)[ICD10: I73.9] Harrison Munson [facility] [place] [facility] [place] [address] [place] [address] CPT-4: 98027 08/10/2023 Plan of Care Planned Activity Notes Codes Status Date Appointment: Sandra Clark WPtel: [address] [facility] [address] [id number] Telehealth Psych Follow Up 12/09 Appointment: Tapan Shirley WPtel: [address] [facility] 300 [id number] [facility] 10/26/2022 Referral: [facility] WPtel: [phone] , [address] [id number] [place] Referral Records Received 09/21/2022 Appointment: Tapan Shirley WPtel: [address] [facility] 300 [id number] [place] F/U 08/11/2022 Appointment: Tapan Shirley WPtel: [address] [facility] 300 [id number] [place] F/U 07/14/2022 Appointment: Tapan Shirley WPtel: [address] [facility] 300 [id number] [place] F/U 02/10/2022 Referral: [facility] WPtel: [address] [id number] [place] Referral Completed 05/28/2021 Referral: General Cardiology Referral Complet ed 01/03/2021 Referral: General Psychologist Referral Close d Referral: General Psychiatrist Referral Patient/Family Scheduling Appointment Instructions Comment Date Leonid is a Male being seen living at [facility]. Initial BPS visit 01/2020. PMHx including DMII, CAD w/ 5 stents, Depression, Seizure Disorder and CKD stage 3. He moved into [facility] in 12/2019 but after a hospitalization 05/2021 he moved to the [facility] to have closer nursing attention. Sister Jyotsna involved in his care cell# [phone] Guardian: Giulia (tapan met in person 09/01/21), now has Lexii (same group as giulia)Lab Schedule: *September (CBC with diff, CMP, A1c) (Novemebr: CBC, CMP, A1c, Lipids, VitD) 10/08/2023 PVD (peripheral vascular dis ease) Peripheral vascular disease is stable with current medication regiment discussed in edema diagnosis tiltonie. Will continue with current plan of care. TEDs to be worn daily and elevation of legs while in chair. Lower extremity edema Mild non-pitting edema present. Currently taking Torsemide 20 mg BID along with potassium chloride 20 mEq BID. K lab 3.5 on 02.17.2023. Not wearing TEDs during visit today but does wear daily - staff have to help him put them on. Continue with current plan of care. Major depression, recurrent Denies any change from baseline for his depression, no new or worsening sadness or anxious feelings. Currently taking Abilify 7.5 mg BID and Venlafaxine 225 mg QD. Continue with current plan of care. Consider BHI. Onychogryposis Toenails debrided today. R) 2 L) 3 Medical grade nail clipper used to reduce length and thickness. Will continue to monitor length at each visit and debride as needed. No signs of ingrown toenails or infection today. . 08/10/2023
--- OUTSIDE RECORDS SUMMARY | 2023-11-03 11:26 | XMS_ITS | CCD ---
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 Role Phone Harrison Durham Primary Care Provider Leona vailable Harrison Durham Chronic Care Management U navailable Summary Purpose DataExchange Insurance Providers Payer name Policy type / Coverage type Covered republican ID Effective Begin Date Effective End Date Medicare [place] Medicare Part B [id number] Unknown Unknown [place] Medicare Part B [id number] Unknown Unknown Family history Sister Brittany Suggs [...] Unknown Snf 09/03/[address]: 1027556 Non-Smoker / No History of Smoking 09/02/[address]: 770330727 No Alcohol Consum ption 09/02/2020 Allergies, Adverse Reactions, Alerts Substance Reaction Codes Entered Date Inactivated Date Status * NO KNOWN FOOD ALLERGIES Unknown 07/13/2023 No Inactive Date Active LISINOPRIL RxNorm: 29147 02/12/2020 No Inactive Da te Active Metformin [...] 08/10/2023 Active Coronary artery disease invo lving [place] coronary artery of [place] heart, angina presence unspecified ICD-10: I25.10 ICD-9: [...] ICD-10: F81.9 ICD-9: 315.2 03/03/2023 Active Other meterman (current) dr ug therapy ICD-10: Z79.899 ICD-9: [...] immunization ICD-10: Z23 ICD-9: V03.89 02/10/2022 Resolved 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 service (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) use of insulin ICD-10: Z79.4 02/10 [...] Fill Instructions pregabalin 100 mg capsule RxNorm: 789677 Take 1 Capsule(s) Oral QAM every morning 09/07/19 24 024 Active rosuvastatin 40 mg tablet RxNorm: 965778 Take 1 Tablet(s) Oral QPM every evening 07/13/19 24 No Stop Date Active ezetimibe 10 mg tablet RxNorm: 189055 Take 1 Tablet(s) Oral QD 07/13/19 24 No Stop Date Active bisacodyl 10 mg rectal suppository RxNorm: 340610 Insert 1 Suppository Rectal QD as needed 07/13/19 24 No Stop Date Active polyethylene glycol 3350 17 gram/dose oral powder RxNorm: 493550 Take 17 Gram(s) Oral BID as needed mix in 4-8ox water 07/13/19 24 No Stop Date Active ketoconazole 2 % shampoo RxNorm: 883185 Apply 1 Application Topical UD as directed 07/13/19 24 No Stop Date Active aripiprazole 15 mg tablet RxNorm: 067346 Take 1/2 Tablet(s) Oral QD 07/13/19 24 No Stop Date Active Ozempic 1 mg/dose (4 mg/3 mL) subcutaneous pen injector RxNorm: 9413254 Inject 1 Milligram(s) Subcutaneous QW once a week 07/13/19 24 No Stop Date Active Guaifenesin AC 10 mg-100 mg/5 mL oral liquid RxNorm: 932688 Take 10 Milliliter(s) Oral Q4H every four hours as needed 07/13/19 24 No Stop Date Active isosorbide mononitrate ER 60 mg tablet,extended release 24 hr RxNorm: 611790 Take 1 Tablet(s) Oral QD 07/13/19 24 No Stop Date Active ammonium lactate 12 % topical cream RxNorm: 481389 Apply 1 Application Topical BID 07/13/19 24 No Stop Date Active hydrocortisone 2.5 % topical cream RxNorm: 816526 Apply 1 Application Topical BID as needed 07/13/19 24 No Stop Date Active rosuvastatin 20 mg sprinkle capsule RxNorm: 4420520 Take 1 Capsule(s) Oral QD 07/13/19 24 No Stop Date Active Vascepa 1 gram capsule RxNorm: 4877870 Take 2 Capsule(s) Oral BID 07/13/19 24 No Stop Date Active venlafaxine ER 75 mg capsule,extended release 24 hr RxNorm: 350758 Take 3 Capsule(s) Oral QD 07/13/19 24 No Stop Date Active Basaglar KwikPen U-100 Insulin 100 unit/mL (3 mL) subcutaneous RxNorm: 7896612 Inject 30U SubQ twice daily 07/07/19 24 025 Active Please dispense one month supply. Basaglar KwikPen U-100 Insulin 100 unit/mL (3 mL) subcutaneous RxNorm: 4242720 Inject 30U SubQ twice daily 07/07/19 24 024 Inactive Please dispense one month supply. pregabalin 150 mg capsule RxNorm: 875298 Take 1 Capsule(s) Oral QHS every night at bedtime 07/05/19 24 024 Active pregabalin 150 mg capsule RxNorm: 771332 Take 1 Capsule(s) Oral QHS every night at bedtime 07/05/19 24 024 Inactive polyethylene glycol 3350 17 gram/dose oral powder RxNorm: 674222 Take 1 Packet Oral QD as needed (1 packet = 17g) mix with 4-8oz of liquid 06/15/19 24 024 Inactive bisacodyl 10 mg rectal suppository RxNorm: 291264 Insert one suppository per rectum once daily as needed for constipation 06/15/19 24 024 Inactive bisacodyl 10 mg rectal suppository RxNorm: 999798 Insert one suppository per rectum once daily as needed for constipation 06/15/19 24 024 Inactive pregabalin 100 mg capsule RxNorm: 376139 Take 1 Capsule(s) Oral QAM every morning 04/27/20 23 024 Inactive Levemir FlexPen 100 unit/mL (3 mL) solution subcutaneous insulin pen RxNorm: 489808 Inject 30 Unit(s) Subcutaneous BID 04/27/20 024 Inactive rosuvastatin 40 mg tablet RxNorm: 380664 Take 1 Tablet(s) Oral QPM every evening 04/16/20 024 Inactive D/C rosuvastatin 20mg venlafaxine ER 75 mg capsule,extended release 24 hr RxNorm: 429090 Take 3 Capsule(s) Oral QD 04/14/20 023 Inactive pregabalin 100 mg capsule RxNorm: 758957 Take 1 Capsule(s) Oral QAM every morning [...] meter clotrimazole 1 % topical cream RxNorm: 537486 Take apply topically to abdominal folds twice daily for 14 days 03/12/20 024 Inactive Ozempic 1 mg/dose (4 mg/3 mL) subcutaneous pen injector RxNorm: 7984673 Inject 1 Milligram(s) Subcutaneous QW once a week 03/11/20 023 Inactive rosuvastatin 20 mg tablet RxNorm: 345162 Take 1 Tablet(s) Oral QD 02/26/20 023 Inactive d/c pravastatin 80mg Ozempic 1 mg/dose (4 mg/3 mL) subcutaneous pen injector RxNorm: 2720334 Inject 1 Milligram(s) Subcutaneous QW once a week 02/20/20 023 Inactive pregabalin 150 mg capsule RxNorm: 474844 Take 1 Capsule(s) Oral HS at bed time 02/19/20 23 023 Inactive pregabalin 100 mg capsule RxNorm: 193421 Take 1 Capsule(s) Oral QAM every morning 02/18/20 023 Inactive venlafaxine ER 75 mg capsule,extended release 24 hr RxNorm: 546477 Take 3 Capsule(s) Oral QD 02/04/20 23 023 Inactive FreeStyle Chema 2 Sensor kit RxNorm: use as directed 02/04/20 23 023 Inactive FreeStyle Chema 2 Sensor kit RxNorm: use as directed 02/04/20 23 024 Inactive fluconazole 150 mg tablet RxNorm: 069427 Take 1 Tablet(s) Oral on day 3 and on day 6 02/03/20 024 Active chlorthalidone 25 mg tablet RxNorm: 086314 Take 1 Tablet(s) Oral QAM every morning 02/03/20 No Stop Date Active venlafaxine ER 150 mg capsule,extended release 24 hr RxNorm: 839233 Take 1 Capsule(s) Oral QD 02/03/20 23 023 Inactive acetaminophen 500 mg tablet RxNorm: 559943 1 TABLET ORALLY 3 TIMES DAILY (MAX APAP:4GM/24HR) 12/15/19 23 023 Inactive potassium chloride ER 20 mEq tablet,extended release RxNorm: 269112 Take 1 Tablet(s) Oral BID 12/09/19 23 024 Inactive d/c 20mEq once daily (sent from hospital) clotrimazole 1 % topical cream RxNorm: 011229 apply 1g topically to top of feet and in between toes BID 12/09/19 23 023 Inactive nystatin 100,000 unit/gram topical powder RxNorm: 697088 APPLY TO AFFECTED AREAS TOPICALLY 2 TIMES DAILY 11/21/19 23 024 Inactive Nystop 100,000 unit/gram topical powder RxNorm: 934074 Apply to abd folds, under breasts and L side of groin Topical BID x 14 days, then BID PRN 11/20/19 23 023 Inactive dx: yeast dermatitis [place] Ultra Strength 4 %-30 %-10 % topical cream RxNorm: 453273 Apply 1 Gram(s) Topical QID PRN to feet and legs for neuropathic pain 11/11/19 23 024 Active hydrocortisone 2.5 % topical cream RxNorm: 733617 Apply 1/2 Gram(s) Topical BID as needed 11/10/19 024 Inactive clotrimazole 1 % topical cream RxNorm: 975647 Apply 1/2 Gram(s) Topical BID Apply to affected areas of groin, periarea, and abdominal topically 2 times daily 11/10/19 23 023 Inactive Humulin R U-500 (Concentrated) Insulin 500 unit/mL subcutaneous soln RxNorm: 419389 Inject 100 Unit(s) Subcutaneous TID 10/07/19 024 Inactive Levemir FlexPen 100 unit/mL (3 mL) solution subcutaneous insulin pen RxNorm: 901969 Inject 30 Unit(s) Subcutaneous BID 10/07/19 023 Inactive Ozempic 0.25 mg or 0.5 mg (2 mg/3 mL) subcutaneous pen injector RxNorm: 9719874 Inject 1/2 Milligram(s) Subcutaneous QW once a week 10/07/19 024 Inactive aripiprazole 15 mg tablet RxNorm: 816775 1/2 TAB (7.5MG) ORALLY DAILY (DX:MAJOR DEPRESSIVE DISORDER) 09/23/19 023 Inactive Lancets,Thin 28 gauge RxNorm: Use 1 as directed QID 09/15/19 23 024 Inactive Accu-Chek Guide test strips RxNorm: Use 1 Test Strip QID 09/15/19 23 023 Inactive ok to substitute with any covered alternative test strip torsemide 20 mg tablet RxNorm: 469586 Take 1 Tablet(s) Oral BID 09/09/19 23 024 Inactive d/c once daily dosing carvedilol 25 mg tablet RxNorm: 401760 Take 1 Tablet(s) Oral QD 08/25/19 23 024 Inactive pregabalin 150 mg capsule RxNorm: 927496 1 Capsule(s) Oral HS at bed time 08/18/19 023 Inactive pregabalin 100 mg capsule RxNorm: 263059 1 Capsule(s) Oral QAM every morning 08/18/19 23 023 Inactive carvedilol 25 mg tablet RxNorm: 141783 1 Tablet(s) Oral QD 07/28/19 23 023 Inactive lisinopril 20 mg tablet RxNorm: 830978 Give 1 Tablet(s) Oral QD 07/28/19 23 023 Inactive Lyrica 150 mg capsule RxNorm: 475844 Take 1 Capsule(s) Oral QHS every night at bedtime 07/19/19 23 023 Inactive d/c 100mg dose Diflucan 150 mg tablet RxNorm: 913482 Take 1 Tablet(s) Oral QD repeat on day 3 and 6 07/19/19 23 023 Inactive pregabalin 100 mg capsule RxNorm: 272015 Take 1 Capsule(s) Oral QAM every morning 07/19/19 023 Inactive gatifloxacin 0.5 % eye drops RxNorm: 356038 Instill 1 Drop(s) as directed TID Instill 1 drop in to affected eye(s) starting 1 day prior to surgery and continue until gone (do not exceed 4 weeks). 07/13/19 23 023 Inactive carvedilol 25 mg tablet RxNorm: 358323 2 Tablet(s) Oral BID 07/13/19 023 Inactive Humulin R Regular U-100 Insulin 100 unit/mL injection solution RxNorm: 086300 85 Unit(s) Injection TID 07/13/19 023 Inactive ketorolac 0.5 % eye drops RxNorm: 857089 Instill 1 Drop(s) as directed QID Instill 1 drop into affected eye(s) 4 times daily starting 1 day prior to surgery and continue until gone (do not exceed 4 weeks). 07/13/19 23 023 Inactive Diflucan 150 mg tablet RxNorm: 035041 Take 1 Tablet(s) Oral QD repeat on day 3 and 6 06/30/19 23 023 Inactive Accu-Chek Guide test strips RxNorm: Use 1 Test Strip QID Use 1 test strip to monitor blood glucose 4 times daily and as needed. Dx:E11.42. 06/23/19 23 023 Inactive ok to substitute with any covered alternative test strip dextromethorphan-gu aifenesin 10 mg-100 mg/5 mL oral liquid RxNorm: 261738 Take 10 Milliliter(s) Oral every 4 hours as needed for cough 06/19/19 023 Inactive dextromethorphan-gu aifenesin 10 mg-100 mg/5 mL oral liquid RxNorm: 793523 Take 10 Milliliter(s) Oral every 4 hours as needed for cough 06/19/19 023 Inactive Lyrica 150 mg capsule RxNorm: 609007 Take 1 Capsule(s) Oral QHS every night at bedtime 06/18/19 023 Inactive d/c 100mg dose aripiprazole 15 mg tablet RxNorm: 065119 1/2 TAB (7.5MG) ORALLY DAILY (DX:MAJOR DEPRESSIVE DISORDER) 06/05/19 023 Inactive pregabalin 100 mg capsule RxNorm: 976663 1 Capsule(s) Oral QAM every morning 06/02/19 023 Inactive Banophen 50 mg capsule RxNorm: 2408134 Take 1 Capsule(s) Oral Q6H every 6 hours as needed 05/19/19 23 No Stop Date Active Novolog Flexpen U-100 Insulin aspart 100 unit/mL (3 mL) subcutaneous RxNorm: 5992080 Inject 10 Unit(s) Subcutaneous QHS every night at bedtime with nighttime snack 04/08/20 022 Inactive Novolog Flexpen U-100 Insulin aspart 100 unit/mL (3 mL) subcutaneous RxNorm: 0168104 Inject 42 Unit(s) Subcutaneous TID in addition to sliding scale 04/08/20 22 022 Inactive d/c 36u albuterol sulfate HFA 90 mcg/actuation aerosol inhaler RxNorm: 1295989 Take 2 Puff(s) Inhalation Q4H every four hours as needed as needed for SOB, cough, or wheezing 04/07/20 22 030 Active Banophen 50 mg capsule RxNorm: 9256415 Take 1 Capsule(s) Oral Q6H every 6 hours as needed 04/06/20 023 Inactive diphenhydramine 50 mg tablet RxNorm: 6888778 Take 1 Tablet(s) Oral Q6H every 6 hours as needed 04/06/20 22 022 Inactive diphenhydramine 50 mg tablet RxNorm: 2388510 1 Tablet(s) Oral Q6H every 6 hours as needed 04/06/20 22 022 Inactive Abilify 15 mg tablet RxNorm: 286040 1/2 Tablet(s) Oral QD 03/10/20 22 023 Inactive Shingrix (PF) 50 mcg/0.5 mL intramuscular suspension, kit RxNorm: 8083023 Administer 1/2 Milliliter(s) Intramuscular QD one time shingrix step 2 ( step 1 given 11/04/21) WITH needle - Nursing please administer upon arrival and once administered post a bridge message 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, 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, expiration date, and lot# so we can update [facility]IC 02/18/20 22 022 Inactive dispense with needle Shingrix (PF) 50 mcg/0.5 mL intramuscular suspension, kit RxNorm: 2871006 Administer 1/2 Milliliter(s) Intramuscular QD one time shingrix step 2 ( step 1 given 11/04/21) WITH needle - Nursing please administer upon arrival and once administered post a bridge message with date of 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, 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, expiration date, and lot# so we can update [facility]IC 02/18/20 22 022 Inactive dispense with needle polyethylene glycol 3350 17 gram/dose oral powder RxNorm: 559375 Take 17=1 capful Gram(s) Oral QD mix with 4-8oz of liquid 01/08/20 22 023 Inactive take this in addition to BID prn order Lyrica 100 mg capsule RxNorm: 009539 Take 1 Capsule(s) Oral QAM every morning 01/08/20 22 022 Inactive d/c 50mg dose acetaminophen 500 mg tablet RxNorm: 491151 Take 1 Tablet(s) Oral TID 01/08/20 22 022 Inactive d/c PRN order Lyrica 150 mg capsule RxNorm: 726979 Take 1 Capsule(s) Oral QHS every night at bedtime 01/08/20 22 023 Inactive d/c 100mg dose Abilify 5 mg tablet RxNorm: 716824 Take 1 Tablet(s) Oral QD take 1 tab po QD #30 refill 5 dx: MDD 12/12/19 22 022 Inactive Abilify 5 mg tablet RxNorm: 602281 Take 1 Tablet(s) Oral QD take 1 tab po QD #30 refill 5 dx: MDD 12/12/19 22 022 Inactive Novolog Flexpen U-100 Insulin aspart 100 unit/mL (3 mL) subcutaneous RxNorm: 8883243 Inject 42 Unit(s) Subcutaneous TID in addition to sliding scale 12/10/19 22 022 Inactive d/c 36u chlorthalidone 25 mg tablet RxNorm: 429626 Take 1 Tablet(s) Oral QAM every morning 12/10/19 22 023 Inactive pregabalin 50 mg capsule RxNorm: 317953 Take 1 Capsule(s) Oral QAM every morning 11/12/19 22 022 Inactive tetanus-diphtheria toxoids-Td 2 Lf unit-2 Lf unit/0.5 mL IM suspension RxNorm: 139 Take 0.5 Miscellaneous Intramuscular 11/12/19 22 022 Inactive need tdap - nursing to administer upon arrival pregabalin 50 mg capsule RxNorm: 123435 Take 1 Capsule(s) Oral QAM every morning 10/16/19 22 022 Inactive pregabalin 50 mg capsule RxNorm: 246205 Take 1 Capsule(s) Oral QAM every morning 10/16/19 22 022 Inactive pregabalin 50 mg capsule RxNorm: 871907 1 Capsule(s) Oral QAM every morning 10/15/19 22 022 Inactive Shingrix (PF) 50 mcg/0.5 mL intramuscular suspension, kit RxNorm: 2447116 Administer 1/2 Milliliter(s) Intramuscular one time Nursing please administer upon arrival and once administered post a bridge message with date of administration, 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 10/09/19 22 Inactive shingrix step 1 cholecalciferol (vitamin D3) 1,250 mcg (50,000 unit) capsule RxNorm: 913465 Take 1 Capsule(s) Oral QW once a [...] aspart 100 unit/mL (3 mL) subcutaneous RxNorm: 0837754 Inject 10 Unit(s) Subcutaneous QHS every night at bedtime with nighttime snack 10/08/19 22 Inactive Shingrix (PF) 50 mcg/0.5 mL intramuscular suspension, kit RxNorm: 3190041 ADMINISTER 2-DOSE SERIES PER CDC GUIDELINES 10/08/19 22 Active Shingrix (PF) 50 mcg/0.5 mL intramuscular suspension, kit RxNorm: 4976913 ADMINISTER 2-DOSE SERIES PER CDC GUIDELINES 10/08/19 22 022 Inactive Novolog Flexpen U-100 Insulin aspart 100 unit/mL (3 mL) subcutaneous RxNorm: 5881195 Inject 36 Unit(s) Subcutaneous TID in addition to sliding scale 10/08/19 22 Inactive Novofine Autocover 30 gauge x 1/3 needle RxNorm: Use 1 Miscellaneous UD as directed Use 1 needle as directed to administer insulin 5 times a day Dx:E11.42. 10/03/19 22 Inactive ok to substitute with any covered alternative pen needle benzoyl peroxide 10 % topical cleanser RxNorm: 367157 Apply 1 Application Topical QD apply to face, wash rinse and dry once daily (may change to QOD if drying) 08/19/19 22 022 Inactive (%covered by insurance) #60ml refill 11 dx: acne benzoyl peroxide 10 % topical cleanser RxNorm: 528012 Apply 1 Application Topical QD apply to face, wash rinse and dry once daily (may change to QOD if drying) 08/19/19 22 022 Inactive (%covered by insurance) #60ml refill 11 dx: acne benzoyl peroxide 10 % topical cleanser RxNorm: 765307 Apply 1 Application Topical QD apply to face, wash rinse and dry once daily (may change to QOD if drying) 08/19/19 22 022 Inactive (%covered by insurance) #60ml refill 11 dx: acne Lyrica 50 mg capsule RxNorm: 675494 Take 1 Capsule(s) Oral QAM every morning Take 1 capsule by mouth once daily 08/19/19 22 022 Inactive benzoyl peroxide 10 % topical cleanser RxNorm: 948691 Apply 1 Application Topical QD apply to face, wash rinse and dry once daily (may change to QOD if drying) 08/19/19 022 Inactive (%covered by insurance) #60ml refill 11 dx: acne Lyrica 100 mg capsule RxNorm: 066099 Take 1 Capsule(s) Oral QHS every night at bedtime Take 1 capsule by mouth once daily at bedtime 08/19/19 22 022 Inactive Lyrica 100 mg capsule RxNorm: 295527 Take 1 Capsule(s) Oral QHS every night at bedtime Take 1 capsule by mouth once daily at bedtime 08/16/19 22 Inactive Lyrica 50 mg capsule RxNorm: 946188 Take 1 Capsule(s) Oral QAM every morning Take 1 capsule by mouth once daily 08/16/19 22 Inactive Levemir FlexTouch U-100 Insulin 100 unit/mL (3 mL) subcutaneous pen RxNorm: 112277 Inject 86 Unit(s) Subcutaneous BID 08/05/19 22 05/23/2 022 Inactive d/c 83units BID Lyrica 100 mg capsule RxNorm: 975099 Take 1 Capsule(s) Oral QHS every night at bedtime Take 1 capsule by mouth once daily at bedtime 07/14/19 22 022 Inactive Lyrica 50 mg capsule RxNorm: 886326 Take 1 Capsule(s) Oral QAM every morning Take 1 capsule by mouth once daily 07/14/19 Inactive Levemir FlexTouch U-100 Insulin 100 unit/mL (3 mL) subcutaneous pen RxNorm: 621824 Inject 83 Unit(s) Subcutaneous BID 07/08/19 22 [...] test strip hydralazine 50 mg tablet RxNorm: 777627 Take 1 Tablet(s) Oral QID 05/05/20 21 022 Inactive venlafaxine ER 225 mg tablet,extended release 24 hr RxNorm: 722431 Take 1 Tablet(s) Oral QD 05/05/20 021 Inactive venlafaxine ER 225 mg tablet,extended release 24 hr RxNorm: 726670 Take 1 Tablet(s) Oral QD 05/05/20 022 Inactive isosorbide mononitrate ER 30 mg tablet,extended release 24 hr RxNorm: 321672 Take 1 Tablet(s) Oral QD 05/05/20 21 024 Inactive hydralazine 50 mg tablet RxNorm: 441276 Take 1 Tablet(s) Oral QID 05/05/20 21 Inactive aspirin 81 mg tablet,delayed release RxNorm: 869770 Take 1 Tablet(s) Oral QD 03/31/20 022 Inactive Vitamin D2 1,250 mcg (50,000 unit) capsule RxNorm: 3571334 Take 1 Capsule(s) Oral QW once a week x 12 weeks 03/31/20 022 Inactive Vitamin D2 1,250 mcg (50,000 unit) capsule RxNorm: 1782263 Take 1 Capsule(s) Oral QW once a week 03/31/20 021 Inactive Zetia 10 mg tablet RxNorm: 488914 Take 1 Tablet(s) Oral QD 03/31/20 024 Inactive Zetia 10 mg tablet RxNorm: 338472 Take 1 Tablet(s) Oral QD 03/31/20 021 Inactive hydralazine 25 mg tablet RxNorm: 001221 Take 1 Tablet(s) Oral QID 03/31/20 21 021 Inactive hydralazine 25 mg tablet RxNorm: 436054 Take 1 Tablet(s) Oral QID 03/31/20 021 Inactive hydralazine 10 mg tablet RxNorm: 107098 Take 1 Tablet(s) Oral QID 03/03/20 021 Inactive cephalexin 500 mg tablet RxNorm: 239912 Take 1 Tablet(s) Oral QID 02/27/20 021 Inactive cephalexin 500 mg tablet RxNorm: 559616 Take 1 Tablet(s) Oral QID 02/27/20 021 Inactive lisinopril 40 mg tablet RxNorm: 046449 Take 1 Tablet(s) Oral QD 02/11/20 023 Inactive Eliquis 5 mg tablet RxNorm: 5262286 Take 1 Tablet(s) Oral BID 01/05/20 21 022 Inactive Eliquis 5 mg tablet RxNorm: 1893850 Take 2 Tablet(s) Oral QD 01/01/20 021 Inactive Lyrica 50 mg capsule RxNorm: 611522 Take 1 Capsule(s) Oral QAM every morning 12/24/19 021 Inactive Lyrica 100 mg capsule RxNorm: 880877 Take 1 Capsule(s) Oral QHS every night at bedtime 12/24/19 021 Inactive clotrimazole 1 % topical cream RxNorm: 356786 Apply to right foot and toes Topical BID 12/04/19 21 023 Inactive metoprolol succinate ER 200 mg tablet,extended release 24 hr RxNorm: 448619 Take 1 Tablet(s) Oral QD 12/04/19 023 Inactive ciprofloxacin 500 mg tablet RxNorm: 737464 Take 1 Tablet(s) Oral QD 11/30/19 021 Inactive DX ofloxacin otic drops Accu-Chek Guide test strips RxNorm: USE 1 TO CHECK GLUCOSE 4 TIMES DAILY AND NEEDED 11/15/19 21 023 Inactive Blood Glucose Test strips RxNorm: Use 1 Test Strip QID at PRN 11/05/19 21 023 Inactive E11.42 lisinopril 30 mg tablet RxNorm: 283956 Take 1 Tablet(s) Oral QD 10/30/19 021 Inactive lisinopril 20 mg tablet RxNorm: 860937 Take 1 Tablet(s) Oral QD 10/23/19 21 021 Inactive lisinopril 20 mg tablet RxNorm: 357021 Take 1 Tablet(s) Oral QD 10/23/19 21 021 Inactive lisinopril 10 mg tablet RxNorm: 901781 Take 1 Tablet(s) Oral QD 10/02/19 21 021 Inactive icosapent ethyl 1 gram capsule RxNorm: 5329965 Take 2 Capsule(s) (2 gm) Oral BID with meals 09/12/19 21 024 Inactive Okay to dispense one 2gm tab if you have that available. icosapent ethyl 1 gram capsule RxNorm: 9826030 Take 2 Capsule(s) Oral BID 09/12/19 21 021 Inactive Okay to dispense one 2gm tab if you have that available. amlodipine 10 mg tablet RxNorm: 625522 Take 1 Tablet(s) Oral QD 09/04/19 21 022 Inactive aspirin 81 mg tablet,delayed release RxNorm: 384787 Take 1 Tablet(s) Oral QD 09/04/19 21 021 Inactive Levemir FlexTouch U-100 Insulin 100 unit/mL (3 mL) subcutaneous pen RxNorm: 919130 Inject 150 Unit(s) Subcutaneous BID 09/04/19 21 022 Inactive venlafaxine ER 150 mg tablet,extended release 24 hr RxNorm: 901079 Take 1 Tablet(s) Oral QD 09/04/19 21 021 Inactive clotrimazole-betame thasone 1 %-0.05 % topical cream RxNorm: 970024 Apply to rash on red area on left abdomen/chest Topical BID 08/10/19 21 021 Inactive amlodipine 5 mg tablet RxNorm: 482819 Take 1 Tablet(s) Oral QD 07/31/19 21 021 Inactive cephalexin 500 mg tablet RxNorm: 204318 Take 1 Tablet(s) Oral BID BID - Twice Daily 07/31/19 21 021 Inactive Start 08/01/20 pantoprazole 40 mg tablet,delayed release RxNorm: 577053 Take 1 Tablet(s) Oral QAM every morning 07/08/19 022 Inactive senna 8.6 mg tablet RxNorm: 316209 Take 1 Tablet(s) Oral QD 07/08/19 022 Inactive carbamazepine 200 mg tablet RxNorm: 461359 Take 1 Tablet(s) Oral BID 07/08/19 022 Inactive clopidogrel 75 mg tablet RxNorm: 248246 Take 1 Tablet(s) Oral QD 07/08/19 021 Inactive Blood Glucose Test strips RxNorm: Use 1 Test Strip QID at PRN 07/08/19 Inactive E11.42 Novolog Flexpen U-100 Insulin aspart 100 unit/mL (3 mL) subcutaneous RxNorm: 4564027 Administer per sliding scale Milliliter(s) Subcutaneous TID 151-200: 10 u; 201-250: 20 u; 251-300: 30 u; 301-350: 40 u; 351-400: 50 u. 07/08/19 022 Inactive lisinopril 5 mg tablet RxNorm: 599393 Take 1 Tablet(s) Oral QD 07/08/19 021 Inactive Novolog Flexpen U-100 Insulin aspart 100 unit/mL (3 mL) subcutaneous RxNorm: 2953151 Inject 85 Unit(s) Subcutaneous TID 07/08/19 022 Inactive pravastatin 80 mg tablet RxNorm: 594739 Take 1 Tablet(s) Oral QHS every night at bedtime 07/08/19 023 Inactive clotrimazole 1 % topical cream RxNorm: 206679 Apply to bilateral groin areas Topical BID 07/08/19 21 022 Inactive metoprolol succinate ER 200 mg tablet,extended release 24 hr RxNorm: 147303 Take 1 Tablet(s) Oral QD 07/08/19 21 021 Inactive Vitamin D3 25 mcg (1,000 unit) tablet RxNorm: 709148 Take 1 Tablet(s) Oral QD 07/08/19 021 Inactive isosorbide dinitrate 30 mg tablet RxNorm: 516756 Take 1 Tablet(s) Oral QD 07/08/1906 05/20/2 021 Inactive Levemir FlexTouch U-100 Insulin 100 unit/mL (3 mL) subcutaneous pen RxNorm: 491969 Inject 140 Unit(s) Subcutaneous BID 07/08/19 21 021 Inactive torsemide 20 mg tablet RxNorm: 758233 Take 1 Tablet(s) Oral QD 07/08/19 21 023 Inactive venlafaxine 75 mg tablet RxNorm: 297862 Take 1 Tablet(s) Oral QD 07/08/19 21 021 Inactive acetaminophen 500 mg tablet RxNorm: 113691 Take 1 Tablet(s) Oral TID as needed for headache 06/18/19 21 021 Inactive acetaminophen 500 mg tablet RxNorm: 020164 Take 1 Tablet(s) Oral TID as needed for headache 06/18/19 21 021 Inactive Lyrica 100 mg capsule RxNorm: 622391 Take 1 Capsule(s) Oral QHS every night at bedtime 06/11/19 21 021 Inactive Lyrica 50 mg capsule RxNorm: 014849 Take 1 Capsule(s) Oral QAM every morning 06/10/19 21 021 Inactive hydrocortisone 2.5 % topical cream RxNorm: 552907 Apply to bilateral groin creases Topical BID 05/15/20 20 021 Inactive clotrimazole 1 % topical cream RxNorm: 173326 Apply to bilateral groin areas Topical BID 05/15/20 20 021 Inactive Lyrica 50 mg capsule RxNorm: 147244 Take 1 Capsule(s) Oral QAM every morning 05/14/20 20 020 Inactive Lyrica 100 mg capsule RxNorm: 430047 Take 1 Capsule(s) Oral QHS every night [...] Inactive Nystop 100,000 unit/gram topical powder RxNorm: 463649 Apply to abd folds, under breasts and L side of groin Topical BID x 14 days, then BID PRN 04/08/20 20 Inactive dx: yeast dermatitis Lyrica 100 mg capsule RxNorm: 760769 Take 1 Capsule(s) Oral QHS every night at bedtime 03/13/20 20 Inactive Lyrica 50 mg capsule RxNorm: 877240 Take 1 Capsule(s) Oral QAM every morning 03/13/20 20 Inactive ketoconazole 2 % shampoo RxNorm: 663621 Apply Topical two times a week with showers 03/11/20 20 Inactive cholecalciferol (vitamin D3) 50 mcg (2,000 unit) tablet RxNorm: 628536 Take 1 Tablet(s) Oral QD 03/11/20 20 021 Inactive Zetia 10 mg tablet RxNorm: 686098 Take 1 Tablet(s) Oral QD 03/07/20 20 021 Inactive Zetia 10 mg tablet RxNorm: 011890 Take 1 Tablet(s) Oral QD 03/07/20 20 Inactive Lyrica 50 mg capsule RxNorm: 087490 Take 1 Capsule(s) Oral QAM every morning 02/15/20 20 Inactive Lyrica 100 mg capsule RxNorm: 321257 Take 1 Capsule(s) Oral QHS every night at bedtime 02/15/20 20 Inactive Lyrica 100 mg capsule RxNorm: 050153 Take 1 Capsule(s) Oral QHS every night at bedtime 10/01/ 020 Inactive Lyrica 50 mg capsule RxNorm: 391536 Take 1 Capsule(s) Oral QAM every morning 02/15/20 20 020 Inactive metoprolol succinate ER 200 mg tablet,extended release 24 hr RxNorm: 722976 Take 1 Tablet(s) Oral QD 08/12/19 23 Active loperamide 2 mg capsule RxNorm: 187243 Take 1 Capsule(s) Oral QID as needed 06/12/19 22 Active hydralazine 50 mg tablet RxNorm: 867480 Take 1 Tablet(s) Oral QID 08/12/19 23 Active venlafaxine ER 75 mg capsule,extended release 24 hr RxNorm: 883094 Take 3 Capsule(s) Oral QD 06/12/19 22 023 Inactive polyethylene glycol 3350 17 gram/dose oral powder RxNorm: 021745 Take 17=1 capful Gram(s) Oral BID as needed mix with 4-8oz of liquid 06/12/19 22 024 Inactive icosapent ethyl 1 gram capsule RxNorm: 8819998 Take 2 Capsule(s) (2 gm) Oral BID with meals 10/07/19 23 023 Inactive Okay to dispense one 2gm tab if you have that available. Levemir FlexTouch U-100 Insulin 100 unit/mL (3 mL) subcutaneous pen RxNorm: 238756 Inject 80 Unit(s) Subcutaneous BID 07/14/19 23 023 Inactive Novolog Flexpen U-100 Insulin aspart 100 unit/mL (3 mL) subcutaneous RxNorm: 1743255 Insert 30 Unit(s) Subcutaneous TID with meals 10/08/19 22 022 Inactive Medication Administered No Medication Administered data Procedures Procedure Codes Date DEBRIDE NAIL 6 OR MORE CPT-4: 10309 4 SYS BP LESS 140 CPT-4: G8752 09/07/2023 CUI BP LESS 90 CPT-4: G8754 09/07/2023 Vital Signs Date Vital 09/07/2023 Blood Pressure 1: 124/76 Code: 8480-6 Heart Rate 1: 77 bpm Code: 8867-4 SpO2: 95% Temperature: 36.8 (C) / 98.3 (F) Reason For Visit No Reason For Visit data Encounters Encounter Performer Location Location Address Codes Date ([address]) Home or Residence Visit Est Pt - [...] D68.59] Diagnosis: Onychogryposis[ICD10: L60.2] Harrison Munson [facility] [place] [address] [place] [address] CPT-4: 23519 09/07/2023 Plan of Care Planned Activity Notes Codes Status Date Appointment: Sandra Clark WPtel: [address] [place], [place] [phone] Telehealth Psych Follow Up 12/09 Appointment: Tapan Shirley WPtel: [address] [place], [place] [phone] [facility] 10/26/2022 Ref[facility] [address] [facility] [id number] Referral Records Received 09/21/2022 Appointment: Tapan Shirley WPtel: [address] [place], [place] [phone] F/U 08/11/2022 Appointment: Tapan Shirley WPtel: [address] [facility] [address] [id number] [place] F/U 07/14/2022 Appointment: Tapan Shirley WPtel: [address] [facility] [address] [id number] [place] F/U 02/10/2022 Referral: Endocrinology Clin [facility] WPtel: [address] [facility] [address] [id number] [place] Referral Completed 05/28/2021 Referral: General Cardiology [...] Sister Jyotsna involved in his care cell# [phone] Guardian: Giulia (tapan met in person 09/01/21), now has Lexii (same group as giulia)Lab Schedule: /September*September (CBC with diff, CMP, A1c) (Novemebr: CBC, CMP, A1c, Lipids, VitD) 10/08/2023 Recurrent major depressive d isorder, in partial remission Currently taking: Abilify 15 mg QD. Vitamin D 1250 mcg once weekly. Venlafaxine ER 225 mg QD. Mood has been: stable, at baseline. Sees not benefit of going outside despite encouragement today. Type 2 diabetes mellitus with diabetic polyneuropathy, with long-term current use of insulin Follows with endocrinology; will defer any medication changes to them unless they ask PCP to take of diabetic care. Current regimen: Basaglar 30 units BID. Humulin 100 units TID.Ozempic 1 mg weekly. Lyrica 100 mg AM and 150 mg PM. Vitamin D deficiency Last checked in February 2023 - monitor yearly. Continue Vitamin D3 50,000 units once weekly for supplementation. Encouraged getting outside for natural vitamin D but patient lives in the basement and rarely goes outside. And today with conversation he sees no benefit of going outside because he has nothing to do out there. Still encouraged as fresh air and change of scenery from his room would be of great benefit for him. Stage 2 chronic 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 Lipid panel last in March 2023, will monitor in March 2024. Is on a high amount of insulin. Follows with Endocrinology. Dangers of extreme elevation in LDL and triglycerides have been educated on. He eats what the facility prepares for him and unfortunately they do not follow a heart healthy meal plan. Medications: Vascepa 2 grams BID. Rosuvastatin 40 mg QD. Ezetimine 10 mg QD. Hypercoagulable state Monitor for signs and symptoms of thrombus. No signs and symptoms present today. Continue Aspirin and Eliquis as ordered. Hypertensive heart disease without heart failure Multiple anti-hypertensives. Amlodipine 10 mg QD. Chlorthalidone 25 mg QD.Hydralazine 50 mg QID. Isosorbide mononitriate ER 60 mg QD. Metoprolol ER 200 mg QD. Potassium chloride ER 20 mEq QD. Torsemide 20 mg BID. Aspirin 81 mg QD. Hydralazine added February 2021. 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. Blood pressure today: 124/76 Would like to order lab work - will discuss with patient and staff since there is no in home lab service to service this facility at this time. Last lab work in 03/2023, will order next month for 6 month lab work, perhaps there will be an establishment of in home lab services by that time. Hx of deep venous thrombosis Wearing bilateral compression socks, they are new this year and fit well. Currently taking aspirin 81 mg daily and Eliquis 5 mg BID. No redness or open areas of skin upon assessment today. Does have chronic marshall discoloration to calves and hemosideran staining. Onychogryposis Toenails debrided todya. R)3 L)5 Medical grade nail clipper used to reduce length and thickness. Will continue to monitor length at each visit and debride as needed. No signs of ingrown toenails or infection today. Amputated toe of right foot Past amputation due to infection. Healed well. Constipation by delayed colonic transit No constipation complaints recently, did have diarrhea the other day, no longer occurring. Continue with miralax and senna daily. Does have suppository PRN as well. Diabetic neuropathy associated with type 2 diabetes mellitus Bilateral neuropathy of feet. thumping pain as described by Leonid. Sean in the AM and PM has been helping. Refill needed per staff will send this today to the pharmacy once I review medication list and ensure appropriate timing for refill. Hyperlipidemia associated with type 2 diabetes mellitus Lipid panel last in March 2023, will monitor in March 2024. Is on a high amount of insulin. Follows with Endocrinology. Dangers of extreme elevation in LDL and triglycerides have been educated on. He eats what the facility prepares for him and unfortunately they do not follow a heart healthy meal plan. Medications: Vascepa 2 grams BID. Rosuvastatin 40 mg QD. Ezetimine 10 mg QD.. 09/07/2023
--- OUTSIDE RECORDS SUMMARY | 2023-11-03 11:27 | XMS_ITS | CCD ---
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 Environmental Education Specialist Name Role Phone [facility], [place] Primary Care Provider Leona vailable [place] [facility], [place] Chronic Care Management U navailable Summary Purpose DataExchange Insurance Providers Payer name Policy type / Coverage type Covered green party ID Effective Begin Date Effective End Date Medicare [place] Medicare Part B [id number] Unknown Unknown Medicaid [place] Medicare Part B [id number] Unknown Unknown Family history Sister Brittany Suggs [...] Residential 09/03/[address]: 7654272 Non-Smoker / No History of Smoking 09/02/[address]: 606931988 No Alcohol Consum ption 09/02/2020 Allergies, Adverse Reactions, Alerts Substance Reaction Codes Entered Date Inactivated Date Status * NO KNOWN FOOD ALLERGIES Unknown 07/13/2023 No Inactive Date Active LISINOPRIL RxNorm: 46181 02/12/2020 No Inactive Da te Active Metformin [...] 08/10/2023 Active Coronary artery disease invo lving [place] coronary artery of [place] heart, angina presence unspecified ICD-10: I25.10 ICD-9: [...] ICD-10: F81.9 ICD-9: 315.2 03/03/2023 Active 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 ICD-10: Z79.899 ICD-9: [...] Fill Instructions acetaminophen 500 mg tablet RxNorm: 642290 (MAX APAP:4GM/24HR) Take 1 Tablet(s) Oral TID as needed for pain 09/24/19 24 024 Inactive carvedilol 25 mg tablet RxNorm: 529639 Take 1 Tablet(s) Oral QD 09/08/19 24 No Stop Date Active pregabalin 100 mg capsule RxNorm: 507812 Take 1 Capsule(s) Oral QAM every morning 09/07/19 24 024 Active rosuvastatin 40 mg tablet RxNorm: 010446 Take 1 Tablet(s) Oral QPM every evening 07/13/19 24 No Stop Date Active ezetimibe 10 mg tablet RxNorm: 423103 Take 1 Tablet(s) Oral QD 07/13/19 24 No Stop Date Active bisacodyl 10 mg rectal suppository RxNorm: 779770 Insert 1 Suppository Rectal QD as needed 07/13/19 24 No Stop Date Active polyethylene glycol 3350 17 gram/dose oral powder RxNorm: 450778 Take 17 Gram(s) Oral BID as needed mix in 4-8ox water 07/13/19 24 No Stop Date Active ketoconazole 2 % shampoo RxNorm: 767931 Apply 1 Application Topical UD as directed 07/13/19 24 No Stop Date Active aripiprazole 15 mg tablet RxNorm: 012225 Take 1/2 Tablet(s) Oral QD 07/13/19 24 No Stop Date Active Ozempic 1 mg/dose (4 mg/3 mL) subcutaneous pen injector RxNorm: 3881384 Inject 1 Milligram(s) Subcutaneous QW once a week 07/13/19 24 No Stop Date Active Guaifenesin AC 10 mg-100 mg/5 mL oral liquid RxNorm: 966954 Take 10 Milliliter(s) Oral Q4H every four hours as needed 07/13/19 24 No Stop Date Active isosorbide mononitrate ER 60 mg tablet,extended release 24 hr RxNorm: 021701 Take 1 Tablet(s) Oral QD 07/13/19 24 No Stop Date Active ammonium lactate 12 % topical cream RxNorm: 177263 Apply 1 Application Topical BID 07/13/19 24 No Stop Date Active hydrocortisone 2.5 % topical cream RxNorm: 847893 Apply 1 Application Topical BID as needed 07/13/19 24 No Stop Date Active rosuvastatin 20 mg sprinkle capsule RxNorm: 4047773 Take 1 Capsule(s) Oral QD 07/13/19 24 No Stop Date Active Vascepa 1 gram capsule RxNorm: 8318185 Take 2 Capsule(s) Oral BID 07/13/19 24 No Stop Date Active venlafaxine ER 75 mg capsule,extended release 24 hr RxNorm: 262159 Take 3 Capsule(s) Oral QD 07/13/19 24 No Stop Date Active Basaglar KwikPen U-100 Insulin 100 unit/mL (3 mL) subcutaneous RxNorm: 1154251 Inject 30U SubQ twice daily 07/07/19 24 025 Active Please dispense one month supply. Basaglar KwikPen U-100 Insulin 100 unit/mL (3 mL) subcutaneous RxNorm: 0069403 Inject 30U SubQ twice daily 07/07/19 24 024 Inactive Please dispense one month supply. pregabalin 150 mg capsule RxNorm: 015153 Take 1 Capsule(s) Oral QHS every night at bedtime 07/05/19 24 024 Active pregabalin 150 mg capsule RxNorm: 899484 Take 1 Capsule(s) Oral QHS every night at bedtime 07/05/19 24 024 Inactive polyethylene glycol 3350 17 gram/dose oral powder RxNorm: 041062 Take 1 Packet Oral QD as needed (1 packet = 17g) mix with 4-8oz of liquid 06/15/19 24 024 Inactive bisacodyl 10 mg rectal suppository RxNorm: 445204 Insert one suppository per rectum once daily as needed for constipation 06/15/19 24 024 Inactive bisacodyl 10 mg rectal suppository RxNorm: 951815 Insert one suppository per rectum once daily as needed for constipation 06/15/19 24 024 Inactive pregabalin 100 mg capsule RxNorm: 686205 Take 1 Capsule(s) Oral QAM every morning 04/27/20 23 024 Inactive Levemir FlexPen 100 unit/mL (3 mL) solution subcutaneous insulin pen RxNorm: 999493 Inject 30 Unit(s) Subcutaneous BID 04/27/20 024 Inactive rosuvastatin 40 mg tablet RxNorm: 984775 Take 1 Tablet(s) Oral QPM every evening 04/16/20 024 Inactive D/C rosuvastatin 20mg venlafaxine ER 75 mg capsule,extended release 24 hr RxNorm: 145912 Take 3 Capsule(s) Oral QD 04/14/20 023 Inactive pregabalin 100 mg capsule RxNorm: 963694 Take 1 Capsule(s) Oral QAM every morning [...] meter clotrimazole 1 % topical cream RxNorm: 722586 Take apply topically to abdominal folds twice daily for 14 days 03/12/20 024 Inactive Ozempic 1 mg/dose (4 mg/3 mL) subcutaneous pen injector RxNorm: 7947951 Inject 1 Milligram(s) Subcutaneous QW once a week 03/11/20 023 Inactive rosuvastatin 20 mg tablet RxNorm: 307029 Take 1 Tablet(s) Oral QD 02/26/20 023 Inactive d/c pravastatin 80mg Ozempic 1 mg/dose (4 mg/3 mL) subcutaneous pen injector RxNorm: 9005186 Inject 1 Milligram(s) Subcutaneous QW once a week 02/20/20 23 023 Inactive pregabalin 150 mg capsule RxNorm: 126133 Take 1 Capsule(s) Oral HS at bed time 02/19/20 23 023 Inactive pregabalin 100 mg capsule RxNorm: 932162 Take 1 Capsule(s) Oral QAM every morning 02/18/20 23 023 Inactive venlafaxine ER 75 mg capsule,extended release 24 hr RxNorm: 358881 Take 3 Capsule(s) Oral QD 02/04/20 23 023 Inactive FreeStyle Chema 2 Sensor kit RxNorm: use as directed 02/04/20 23 023 Inactive FreeStyle Chema 2 Sensor kit RxNorm: use as directed 02/04/20 23 024 Inactive fluconazole 150 mg tablet RxNorm: 565297 Take 1 Tablet(s) Oral on day 3 and on day 6 02/03/20 024 Active chlorthalidone 25 mg tablet RxNorm: 174435 Take 1 Tablet(s) Oral QAM every morning 02/03/20 23 No Stop Date Active venlafaxine ER 150 mg capsule,extended release 24 hr RxNorm: 762343 Take 1 Capsule(s) Oral QD 02/03/20 23 023 Inactive acetaminophen 500 mg tablet RxNorm: 262185 1 TABLET ORALLY 3 TIMES DAILY (MAX APAP:4GM/24HR) 12/15/19 23 023 Inactive potassium chloride ER 20 mEq tablet,extended release RxNorm: 310305 Take 1 Tablet(s) Oral BID 12/09/19 23 024 Inactive d/c 20mEq once daily (sent from hospital) clotrimazole 1 % topical cream RxNorm: 493691 apply 1g topically to top of feet and in between toes BID 12/09/19 23 023 Inactive nystatin 100,000 unit/gram topical powder RxNorm: 205283 APPLY TO AFFECTED AREAS TOPICALLY 2 TIMES DAILY 11/21/19 23 024 Inactive Nystop 100,000 unit/gram topical powder RxNorm: 691164 Apply to abd folds, under breasts and L side of groin Topical BID x 14 days, then BID PRN 11/20/19 23 023 Inactive dx: yeast dermatitis [place] Ultra Strength 4 %-30 %-10 % topical cream RxNorm: 180329 Apply 1 Gram(s) Topical QID PRN to feet and legs for neuropathic pain 11/11/19 23 024 Active clotrimazole 1 % topical cream RxNorm: 137489 Apply 1/2 Gram(s) Topical BID Apply to affected areas of groin, periarea, and abdominal topically 2 times daily 11/10/19 23 023 Inactive hydrocortisone 2.5 % topical cream RxNorm: 464701 Apply 1/2 Gram(s) Topical BID as needed 11/10/19 024 Inactive Humulin R U-500 (Concentrated) Insulin 500 unit/mL subcutaneous soln RxNorm: 033851 Inject 100 Unit(s) Subcutaneous TID 10/07/19 024 Inactive Levemir FlexPen 100 unit/mL (3 mL) solution subcutaneous insulin pen RxNorm: 091493 Inject 30 Unit(s) Subcutaneous BID 10/07/19 023 Inactive Ozempic 0.25 mg or 0.5 mg (2 mg/3 mL) subcutaneous pen injector RxNorm: 0413607 Inject 1/2 Milligram(s) Subcutaneous QW once a week 10/07/19 024 Inactive aripiprazole 15 mg tablet RxNorm: 020050 1/2 TAB (7.5MG) ORALLY DAILY (DX:MAJOR DEPRESSIVE DISORDER) 09/23/19 023 Inactive Lancets,Thin 28 gauge RxNorm: Use 1 as directed QID 09/15/19 23 024 Inactive Accu-Chek Guide test strips RxNorm: Use 1 Test Strip QID 09/15/19 23 023 Inactive ok to substitute with any covered alternative test strip torsemide 20 mg tablet RxNorm: 198068 Take 1 Tablet(s) Oral BID 09/09/19 23 024 Inactive d/c once daily dosing carvedilol 25 mg tablet RxNorm: 105912 Take 1 Tablet(s) Oral QD 08/25/19 23 024 Inactive pregabalin 150 mg capsule RxNorm: 000567 1 Capsule(s) Oral HS at bed time 08/18/19 023 Inactive pregabalin 100 mg capsule RxNorm: 778520 1 Capsule(s) Oral QAM every morning 08/18/19 23 023 Inactive carvedilol 25 mg tablet RxNorm: 287651 1 Tablet(s) Oral QD 07/28/19 23 023 Inactive lisinopril 20 mg tablet RxNorm: 832672 Give 1 Tablet(s) Oral QD 07/28/19 23 023 Inactive Lyrica 150 mg capsule RxNorm: 571862 Take 1 Capsule(s) Oral QHS every night at bedtime 07/19/19 023 Inactive d/c 100mg dose Diflucan 150 mg tablet RxNorm: 908376 Take 1 Tablet(s) Oral QD repeat on day 3 and 6 07/19/19 023 Inactive pregabalin 100 mg capsule RxNorm: 784649 Take 1 Capsule(s) Oral QAM every morning 07/19/19 023 Inactive gatifloxacin 0.5 % eye drops RxNorm: 631328 Instill 1 Drop(s) as directed TID Instill 1 drop in to affected eye(s) starting 1 day prior to surgery and continue until gone (do not exceed 4 weeks). 07/13/19 23 023 Inactive carvedilol 25 mg tablet RxNorm: 769856 2 Tablet(s) Oral BID 07/13/19 023 Inactive Humulin R Regular U-100 Insulin 100 unit/mL injection solution RxNorm: 912366 85 Unit(s) Injection TID 07/13/19 23 023 Inactive ketorolac 0.5 % eye drops RxNorm: 154762 Instill 1 Drop(s) as directed QID Instill 1 drop into affected eye(s) 4 times daily starting 1 day prior to surgery and continue until gone (do not exceed 4 weeks). 07/13/19 23 023 Inactive Diflucan 150 mg tablet RxNorm: 827606 Take 1 Tablet(s) Oral QD repeat on day 3 and 6 06/30/19 23 023 Inactive Accu-Chek Guide test strips RxNorm: Use 1 Test Strip QID Use 1 test strip to monitor blood glucose 4 times daily and as needed. Dx:E11.42. 06/23/19 023 Inactive ok to substitute with any covered alternative test strip dextromethorphan-gu aifenesin 10 mg-100 mg/5 mL oral liquid RxNorm: 697935 Take 10 Milliliter(s) Oral every 4 hours as needed for cough 06/19/19 023 Inactive dextromethorphan-gu aifenesin 10 mg-100 mg/5 mL oral liquid RxNorm: 697428 Take 10 Milliliter(s) Oral every 4 hours as needed for cough 06/19/19 023 Inactive Lyrica 150 mg capsule RxNorm: 326110 Take 1 Capsule(s) Oral QHS every night at bedtime 06/18/19 023 Inactive d/c 100mg dose aripiprazole 15 mg tablet RxNorm: 793202 /2 TAB (7.5MG) ORALLY DAILY (DX:MAJOR DEPRESSIVE DISORDER) 06/05/19 023 Inactive pregabalin 100 mg capsule RxNorm: 588207 1 Capsule(s) Oral QAM every morning 06/02/19 023 Inactive Banophen 50 mg capsule RxNorm: 7236329 Take 1 Capsule(s) Oral Q6H every 6 hours as needed 05/19/19 23 No Stop Date Active Novolog Flexpen U-100 Insulin aspart 100 unit/mL (3 mL) subcutaneous RxNorm: 3102134 Inject 10 Unit(s) Subcutaneous QHS every night at bedtime with nighttime snack 04/08/20 022 Inactive Novolog Flexpen U-100 Insulin aspart 100 unit/mL (3 mL) subcutaneous RxNorm: 2268794 Inject 42 Unit(s) Subcutaneous TID in addition to sliding scale 04/08/20 022 Inactive d/c 36u albuterol sulfate HFA 90 mcg/actuation aerosol inhaler RxNorm: 7897501 Take 2 Puff(s) Inhalation Q4H every four hours as needed as needed for SOB, cough, or wheezing 04/07/20 22 030 Active Banophen 50 mg capsule RxNorm: 8522118 Take 1 Capsule(s) Oral Q6H every 6 hours as needed 04/06/20 22 023 Inactive diphenhydramine 50 mg tablet RxNorm: 8566553 Take 1 Tablet(s) Oral Q6H every 6 hours as needed 04/06/20 22 022 Inactive diphenhydramine 50 mg tablet RxNorm: 8129089 1 Tablet(s) Oral Q6H every 6 hours as needed 04/06/20 22 022 Inactive Abilify 15 mg tablet RxNorm: 213281 1/2 Tablet(s) Oral QD 03/10/20 22 023 Inactive Shingrix (PF) 50 mcg/0.5 mL intramuscular suspension, kit RxNorm: 9876279 Administer 1/2 Milliliter(s) Intramuscular QD one time shingrix step 2 ( step 1 given 11/04/21) WITH needle - Nursing please administer upon arrival and once administered post a bridge message with date of administration, receiving coordinator, expiration date, and lot# so we can update [facility] 02/18/20 22 022 Inactive dispense with needle Shingrix (PF) 50 mcg/0.5 mL intramuscular suspension, kit RxNorm: 0421712 Administer 1/2 Milliliter(s) Intramuscular QD one time shingrix step 2 ( step 1 given 11/04/21) WITH needle - Nursing please administer upon arrival and once administered post a bridge message with date of administration, receiving coordinator, expiration date, and lot# so we can update [facility] 02/18/20 22 022 Inactive dispense with needle polyethylene glycol 3350 17 gram/dose oral powder RxNorm: 116117 Take 17=1 capful Gram(s) Oral QD mix with 4-8oz of liquid 01/08/20 22 023 Inactive take this in addition to BID prn order Lyrica 100 mg capsule RxNorm: 245861 Take 1 Capsule(s) Oral QAM every morning 01/08/20 22 022 Inactive d/c 50mg dose acetaminophen 500 mg tablet RxNorm: 667252 Take 1 Tablet(s) Oral TID 01/08/20 22 022 Inactive d/c PRN order Lyrica 150 mg capsule RxNorm: 323488 Take 1 Capsule(s) Oral QHS every night at bedtime 01/08/20 22 023 Inactive d/c 100mg dose Abilify 5 mg tablet RxNorm: 730561 Take 1 Tablet(s) Oral QD take 1 tab po QD #30 refill 5 dx: MDD 12/12/19 22 022 Inactive Abilify 5 mg tablet RxNorm: 868887 Take 1 Tablet(s) Oral QD take 1 tab po QD #30 refill 5 dx: MDD 12/12/19 22 022 Inactive Novolog Flexpen U-100 Insulin aspart 100 unit/mL (3 mL) subcutaneous RxNorm: 4824497 Inject 42 Unit(s) Subcutaneous TID in addition to sliding scale 12/10/19 22 022 Inactive d/c 36u chlorthalidone 25 mg tablet RxNorm: 321689 Take 1 Tablet(s) Oral QAM every morning 12/10/19 22 023 Inactive pregabalin 50 mg capsule RxNorm: 418233 Take 1 Capsule(s) Oral QAM every morning 11/12/19 22 022 Inactive tetanus-diphtheria toxoids-Td 2 Lf unit-2 Lf unit/0.5 mL IM suspension RxNorm: 139 Take 0.5 Miscellaneous Intramuscular 11/12/19 22 022 Inactive need tdap - nursing to administer upon arrival pregabalin 50 mg capsule RxNorm: 679184 Take 1 Capsule(s) Oral QAM every morning 10/16/19 22 022 Inactive pregabalin 50 mg capsule RxNorm: 264501 Take 1 Capsule(s) Oral QAM every morning 10/16/19 22 022 Inactive pregabalin 50 mg capsule RxNorm: 311015 1 Capsule(s) Oral QAM every morning 10/15/19 22 022 Inactive Shingrix (PF) 50 mcg/0.5 mL intramuscular suspension, kit RxNorm: 2763408 Administer 1/2 Milliliter(s) Intramuscular one time Nursing please administer upon arrival and once administered post a bridge message with date of administration, receiving coordinator, expiration date, and lot# so we can update [facility]. 10/09/19 22 022 Inactive shingrix step 1 Shingrix (PF) 50 mcg/0.5 mL intramuscular suspension, kit RxNorm: 8123214 Administer 1/2 Milliliter(s) Intramuscular one time Nursing please administer upon arrival and once administered post a bridge message with date of administration, receiving coordinator, expiration date, and lot# so we can update [facility]. 10/09/19 22 022 Inactive shingrix step 1 cholecalciferol (vitamin D3) 1,250 mcg (50,000 unit) capsule RxNorm: 290664 Take 1 Capsule(s) Oral QW once a [...] aspart 100 unit/mL (3 mL) subcutaneous RxNorm: 4250877 Inject 10 Unit(s) Subcutaneous QHS every night at bedtime with nighttime snack 10/08/19 22 Inactive Shingrix (PF) 50 mcg/0.5 mL intramuscular suspension, kit RxNorm: 1038701 ADMINISTER 2-DOSE SERIES PER CDC GUIDELINES 10/08/19 22 Active Shingrix (PF) 50 mcg/0.5 mL intramuscular suspension, kit RxNorm: 3915800 ADMINISTER 2-DOSE SERIES PER CDC GUIDELINES 10/08/19 22 022 Inactive Novolog Flexpen U-100 Insulin aspart 100 unit/mL (3 mL) subcutaneous RxNorm: 1607726 Inject 36 Unit(s) Subcutaneous TID in addition to sliding scale 10/08/19 22 Inactive Novofine Autocover 30 gauge x 1/3 needle RxNorm: Use 1 Miscellaneous UD as directed Use 1 needle as directed to administer insulin 5 times a day Dx:E11.42. 10/03/19 022 Inactive ok to substitute with any covered alternative pen needle benzoyl peroxide 10 % topical cleanser RxNorm: 205184 Apply 1 Application Topical QD apply to face, wash rinse and dry once daily (may change to QOD if drying) 08/19/19 22 022 Inactive (%covered by insurance) #60ml refill 11 dx: acne benzoyl peroxide 10 % topical cleanser RxNorm: 809504 Apply 1 Application Topical QD apply to face, wash rinse and dry once daily (may change to QOD if drying) 08/19/19 22 022 Inactive (%covered by insurance) #60ml refill 11 dx: acne benzoyl peroxide 10 % topical cleanser RxNorm: 719134 Apply 1 Application Topical QD apply to face, wash rinse and dry once daily (may change to QOD if drying) 08/19/19 22 022 Inactive (%covered by insurance) #60ml refill 11 dx: acne Lyrica 50 mg capsule RxNorm: 810422 Take 1 Capsule(s) Oral QAM every morning Take 1 capsule by mouth once daily 08/19/19 22 022 Inactive benzoyl peroxide 10 % topical cleanser RxNorm: 865610 Apply 1 Application Topical QD apply to face, wash rinse and dry once daily (may change to QOD if drying) 08/19/19 022 Inactive (%covered by insurance) #60ml refill 11 dx: acne Lyrica 100 mg capsule RxNorm: 436802 Take 1 Capsule(s) Oral QHS every night at bedtime Take 1 capsule by mouth once daily at bedtime 08/19/19 22 022 Inactive Lyrica 100 mg capsule RxNorm: 676134 Take 1 Capsule(s) Oral QHS every night at bedtime Take 1 capsule by mouth once daily at bedtime 08/16/19 22 022 Inactive Lyrica 50 mg capsule RxNorm: 775417 Take 1 Capsule(s) Oral QAM every morning Take 1 capsule by mouth once daily 08/16/19 22 022 Inactive Levemir FlexTouch U-100 Insulin 100 unit/mL (3 mL) subcutaneous pen RxNorm: 199614 Inject 86 Unit(s) Subcutaneous BID 08/05/19 22 022 Inactive d/c 83units BID Lyrica 100 mg capsule RxNorm: 769508 Take 1 Capsule(s) Oral QHS every night at bedtime Take 1 capsule by mouth once daily at bedtime 07/14/19 22 022 Inactive Lyrica 50 mg capsule RxNorm: 159980 Take 1 Capsule(s) Oral QAM every morning Take 1 capsule by mouth once daily 07/14/19 22 022 Inactive Levemir FlexTouch U-100 Insulin 100 unit/mL (3 mL) subcutaneous pen RxNorm: 844415 Inject 83 Unit(s) Subcutaneous BID 07/08/19 22 [...] test strip hydralazine 50 mg tablet RxNorm: 273645 Take 1 Tablet(s) Oral QID 05/05/20 21 022 Inactive venlafaxine ER 225 mg tablet,extended release 24 hr RxNorm: 629372 Take 1 Tablet(s) Oral QD 05/05/20 021 Inactive venlafaxine ER 225 mg tablet,extended release 24 hr RxNorm: 576040 Take 1 Tablet(s) Oral QD 05/05/20 022 Inactive isosorbide mononitrate ER 30 mg tablet,extended release 24 hr RxNorm: 416194 Take 1 Tablet(s) Oral QD 05/05/20 024 Inactive hydralazine 50 mg tablet RxNorm: 127603 Take 1 Tablet(s) Oral QID 05/05/20 Inactive aspirin 81 mg tablet,delayed release RxNorm: 179199 Take 1 Tablet(s) Oral QD 03/31/20 022 Inactive Vitamin D2 1,250 mcg (50,000 unit) capsule RxNorm: 0431323 Take 1 Capsule(s) Oral QW once a week x 12 weeks 03/31/20 022 Inactive Vitamin D2 1,250 mcg (50,000 unit) capsule RxNorm: 7832922 Take 1 Capsule(s) Oral QW once a week 03/31/20 021 Inactive Zetia 10 mg tablet RxNorm: 827967 Take 1 Tablet(s) Oral QD 03/31/20 024 Inactive Zetia 10 mg tablet RxNorm: 807843 Take 1 Tablet(s) Oral QD 03/31/20 021 Inactive hydralazine 25 mg tablet RxNorm: 793070 Take 1 Tablet(s) Oral QID 03/31/20 21 021 Inactive hydralazine 25 mg tablet RxNorm: 160099 Take 1 Tablet(s) Oral QID 03/31/20 021 Inactive hydralazine 10 mg tablet RxNorm: 326752 Take 1 Tablet(s) Oral QID 03/03/20 021 Inactive cephalexin 500 mg tablet RxNorm: 933174 Take 1 Tablet(s) Oral QID 02/27/20 021 Inactive cephalexin 500 mg tablet RxNorm: 137535 Take 1 Tablet(s) Oral QID 02/27/20 021 Inactive lisinopril 40 mg tablet RxNorm: 188942 Take 1 Tablet(s) Oral QD 02/11/20 023 Inactive Eliquis 5 mg tablet RxNorm: 2524935 Take 1 Tablet(s) Oral BID 01/05/20 022 Inactive Eliquis 5 mg tablet RxNorm: 7152312 Take 2 Tablet(s) Oral QD 01/01/20 21 021 Inactive Lyrica 50 mg capsule RxNorm: 547194 Take 1 Capsule(s) Oral QAM every morning 12/24/19 021 Inactive Lyrica 100 mg capsule RxNorm: 300785 Take 1 Capsule(s) Oral QHS every night at bedtime 12/24/19 021 Inactive clotrimazole 1 % topical cream RxNorm: 952628 Apply to right foot and toes Topical BID 12/04/19 21 023 Inactive metoprolol succinate ER 200 mg tablet,extended release 24 hr RxNorm: 675667 Take 1 Tablet(s) Oral QD 12/04/19 21 023 Inactive ciprofloxacin 500 mg tablet RxNorm: 337878 Take 1 Tablet(s) Oral QD 11/30/19 21 021 Inactive DX ofloxacin otic drops Accu-Chek Guide test strips RxNorm: USE 1 TO CHECK GLUCOSE 4 TIMES DAILY AND NEEDED 11/15/19 21 023 Inactive Blood Glucose Test strips RxNorm: Use 1 Test Strip QID at PRN 11/05/19 21 023 Inactive E11.42 lisinopril 30 mg tablet RxNorm: 397107 Take 1 Tablet(s) Oral QD 10/30/19 21 021 Inactive lisinopril 20 mg tablet RxNorm: 815975 Take 1 Tablet(s) Oral QD 10/23/19 21 021 Inactive lisinopril 20 mg tablet RxNorm: 071987 Take 1 Tablet(s) Oral QD 10/23/19 21 021 Inactive lisinopril 10 mg tablet RxNorm: 740678 Take 1 Tablet(s) Oral QD 10/02/19 21 021 Inactive icosapent ethyl 1 gram capsule RxNorm: 2454300 Take 2 Capsule(s) (2 gm) Oral BID with meals 09/12/19 024 Inactive Okay to dispense one 2gm tab if you have that available. icosapent ethyl 1 gram capsule RxNorm: 8942615 Take 2 Capsule(s) Oral BID 09/12/19 21 021 Inactive Okay to dispense one 2gm tab if you have that available. amlodipine 10 mg tablet RxNorm: 503396 Take 1 Tablet(s) Oral QD 09/04/19 21 022 Inactive aspirin 81 mg tablet,delayed release RxNorm: 346526 Take 1 Tablet(s) Oral QD 09/04/19 21 021 Inactive Levemir FlexTouch U-100 Insulin 100 unit/mL (3 mL) subcutaneous pen RxNorm: 256118 Inject 150 Unit(s) Subcutaneous BID 09/04/19 21 022 Inactive venlafaxine ER 150 mg tablet,extended release 24 hr RxNorm: 007416 Take 1 Tablet(s) Oral QD 09/04/19 21 021 Inactive clotrimazole-betame thasone 1 %-0.05 % topical cream RxNorm: 546176 Apply to rash on red area on left abdomen/chest Topical BID 08/10/19 21 021 Inactive amlodipine 5 mg tablet RxNorm: 918652 Take 1 Tablet(s) Oral QD 07/31/19 21 021 Inactive cephalexin 500 mg tablet RxNorm: 891716 Take 1 Tablet(s) Oral BID BID - Twice Daily 07/31/19 21 021 Inactive Start 08/01/20 pantoprazole 40 mg tablet,delayed release RxNorm: 250365 Take 1 Tablet(s) Oral QAM every morning 07/08/19 022 Inactive senna 8.6 mg tablet RxNorm: 604050 Take 1 Tablet(s) Oral QD 07/08/19 022 Inactive carbamazepine 200 mg tablet RxNorm: 928056 Take 1 Tablet(s) Oral BID 07/08/19 022 Inactive clopidogrel 75 mg tablet RxNorm: 515025 Take 1 Tablet(s) Oral QD 07/08/19 021 Inactive Blood Glucose Test strips RxNorm: Use 1 Test Strip QID at PRN 07/08/19 Inactive E11.42 Novolog Flexpen U-100 Insulin aspart 100 unit/mL (3 mL) subcutaneous RxNorm: 6965690 Administer per sliding scale Milliliter(s) Subcutaneous TID 151-200: 10 u; 201-250: 20 u; 251-300: 30 u; 301-350: 40 u; 351-400: 50 u. 07/08/19 022 Inactive lisinopril 5 mg tablet RxNorm: 365881 Take 1 Tablet(s) Oral QD 07/08/19 Inactive Novolog Flexpen U-100 Insulin aspart 100 unit/mL (3 mL) subcutaneous RxNorm: 5729164 Inject 85 Unit(s) Subcutaneous TID 07/08/19 022 Inactive pravastatin 80 mg tablet RxNorm: 191991 Take 1 Tablet(s) Oral QHS every night at bedtime 07/08/19 023 Inactive clotrimazole 1 % topical cream RxNorm: 857970 Apply to bilateral groin areas Topical BID 07/08/19 022 Inactive metoprolol succinate ER 200 mg tablet,extended release 24 hr RxNorm: 388180 Take 1 Tablet(s) Oral QD 07/08/19 021 Inactive Vitamin D3 25 mcg (1,000 unit) tablet RxNorm: 441850 Take 1 Tablet(s) Oral QD 07/08/19 021 Inactive isosorbide dinitrate 30 mg tablet RxNorm: 750330 Take 1 Tablet(s) Oral QD 07/08/19 21 021 Inactive Levemir FlexTouch U-100 Insulin 100 unit/mL (3 mL) subcutaneous pen RxNorm: 037365 Inject 140 Unit(s) Subcutaneous BID 07/08/19 21 021 Inactive torsemide 20 mg tablet RxNorm: 003334 Take 1 Tablet(s) Oral QD 07/08/19 21 023 Inactive venlafaxine 75 mg tablet RxNorm: 273916 Take 1 Tablet(s) Oral QD 07/08/19 021 Inactive acetaminophen 500 mg tablet RxNorm: 548342 Take 1 Tablet(s) Oral TID as needed for headache 06/18/19 Inactive acetaminophen 500 mg tablet RxNorm: 986007 Take 1 Tablet(s) Oral TID as needed for headache 06/18/19 021 Inactive Lyrica 100 mg capsule RxNorm: 358069 Take 1 Capsule(s) Oral QHS every night at bedtime 06/11/19 021 Inactive Lyrica 50 mg capsule RxNorm: 233117 Take 1 Capsule(s) Oral QAM every morning 06/10/19 21 Inactive hydrocortisone 2.5 % topical cream RxNorm: 369003 Apply to bilateral groin creases Topical BID 05/15/20 20 021 Inactive clotrimazole 1 % topical cream RxNorm: 197363 Apply to bilateral groin areas Topical BID 05/15/20 20 021 Inactive Lyrica 50 mg capsule RxNorm: 708210 Take 1 Capsule(s) Oral QAM every morning 05/14/20 20 Inactive Lyrica 100 mg capsule RxNorm: 211275 Take 1 Capsule(s) Oral QHS every night [...] Inactive Nystop 100,000 unit/gram topical powder RxNorm: 192990 Apply to abd folds, under breasts and L side of groin Topical BID x 14 days, then BID PRN 04/08/20 20 Inactive dx: yeast dermatitis Lyrica 100 mg capsule RxNorm: 004334 Take 1 Capsule(s) Oral QHS every night at bedtime 03/13/20 20 Inactive Lyrica 50 mg capsule RxNorm: 414541 Take 1 Capsule(s) Oral QAM every morning 03/13/20 20 Inactive ketoconazole 2 % shampoo RxNorm: 922951 Apply Topical two times a week with showers 03/11/20 20 024 Inactive cholecalciferol (vitamin D3) 50 mcg (2,000 unit) tablet RxNorm: 005886 Take 1 Tablet(s) Oral QD 03/11/20 20 021 Inactive Zetia 10 mg tablet RxNorm: 448626 Take 1 Tablet(s) Oral QD 03/07/20 20 021 Inactive Zetia 10 mg tablet RxNorm: 821502 Take 1 Tablet(s) Oral QD 03/07/20 20 Inactive Lyrica 50 mg capsule RxNorm: 981833 Take 1 Capsule(s) Oral QAM every morning 02/15/20 20 Inactive Lyrica 100 mg capsule RxNorm: 250694 Take 1 Capsule(s) Oral QHS every night at bedtime 02/15/20 20 Inactive Lyrica 100 mg capsule RxNorm: 819555 Take 1 Capsule(s) Oral QHS every night at bedtime 02/15/20 20 020 Inactive Lyrica 50 mg capsule RxNorm: 546675 Take 1 Capsule(s) Oral QAM every morning 02/15/20 20 020 Inactive metoprolol succinate ER 200 mg tablet,extended release 24 hr RxNorm: 318890 Take 1 Tablet(s) Oral QD 08/12/19 23 Active loperamide 2 mg capsule RxNorm: 384777 Take 1 Capsule(s) Oral QID as needed 06/12/19 22 Active hydralazine 50 mg tablet RxNorm: 782951 Take 1 Tablet(s) Oral QID 08/12/19 23 Active venlafaxine ER 75 mg capsule,extended release 24 hr RxNorm: 240338 Take 3 Capsule(s) Oral QD 06/12/19 22 023 Inactive polyethylene glycol 3350 17 gram/dose oral powder RxNorm: 395609 Take 17=1 capful Gram(s) Oral BID as needed mix with 4-8oz of liquid 06/12/19 22 024 Inactive icosapent ethyl 1 gram capsule RxNorm: 0158902 Take 2 Capsule(s) (2 gm) Oral BID with meals 10/07/19 23 023 Inactive Okay to dispense one 2gm tab if you have that available. Levemir FlexTouch U-100 Insulin 100 unit/mL (3 mL) subcutaneous pen RxNorm: 095857 Inject 80 Unit(s) Subcutaneous BID 07/14/19 23 023 Inactive Novolog Flexpen U-100 Insulin aspart 100 unit/mL (3 mL) subcutaneous RxNorm: 3412772 Insert 30 Unit(s) Subcutaneous TID with meals 10/08/19 22 022 Inactive Medication Administered No Medication Administered data Reason For Visit No Reason For Visit data Plan of Care Planned Activity Notes Codes Status Date Referral: [facility] [place]: [id number], [address] [id number] [place] Referral Records Received 09/21/2022 Referral: [facility] [place]: [phone] [id number] [place] Referral Completed 05/28/2021 Referral: General Cardiology [...] Sister Jyotsna involved in his care cell# [phone] Guardian: Don (tapan met in person 09/01/21), now has Lexii (same group as don)Lab Schedule: *September (CBC with diff, CMP, A1c) (Novemebr: CBC, CMP, A1c, Lipids, VitD) 10/08/2023
--- OUTSIDE RECORDS SUMMARY | 2023-11-03 11:27 | XMS_ITS | CCD ---
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 Lift Team Technician Name Role Phone Arpit GRILL ATTENDANT-C, [place] Primary Care Provider Leona vailable Preble GRILL ATTENDANT-C, [facility] Chronic Care Management U navailable Summary Purpose DataExchange Insurance Providers Payer name Policy type / Coverage type Covered republican ID Effective Begin Date Effective End Date [place] Part B [id number] Unknown Unknown [place] Medicare [place] B [id number] Unknown Unknown Family history Sister Brittany Suggs [...] Home 09/03/[address]: 3691361 Non-Smoker / No History of Smoking 09/02/[address]: 275420530 No Alcohol Consum ption 09/02/2020 Allergies, Adverse Reactions, Alerts Substance Reaction Codes Entered Date Inactivated Date Status * NO KNOWN FOOD ALLERGIES Unknown 07/13/2023 No Inactive Date Active LISINOPRIL RxNorm: 12854 02/12/2020 No Inactive Da te Active Metformin [...] 08/10/2023 Active Coronary artery disease invo lving [place] coronary artery of [place] heart, angina presence unspecified ICD-10: I25.10 ICD-9: [...] ICD-10: F81.9 ICD-9: 315.2 03/03/2023 Active 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 ICD-10: Z79.899 [...] 5 mg/gram (0.5 %) eye ointment RxNorm: 579042 Apply 1 Application Both eyes QHS every night at bedtime Instill ~1 cm ribbon into affected eye 09/28/19 24 Inactive Artificial Tears (PF) 0.1 %-0.3 % drops in a dropperette RxNorm: 356800 Apply 1-2 Drop(s) Both eyes BID as needed 09/28/19 24 Inactive Artificial Tears (PF) 0.1 %-0.3 % drops in a dropperette RxNorm: 176786 Apply 1-2 Drop(s) Both eyes BID as needed 09/28/19 24 Active erythromycin 5 mg/gram (0.5 %) eye ointment RxNorm: 051796 Apply 1 Application Both eyes QHS every night at bedtime Instill ~1 cm ribbon into affected eye 09/28/19 24 Inactive acetaminophen 500 mg tablet RxNorm: 273660 (MAX APAP:4GM/24HR) Take 1 Tablet(s) Oral TID as needed for pain 09/24/19 24 Inactive carvedilol 25 mg tablet RxNorm: 971187 Take 1 Tablet(s) Oral QD 09/08/19 24 No Stop Date Active pregabalin 100 mg capsule RxNorm: 744158 Take 1 Capsule(s) Oral QAM every morning 09/07/19 24 024 Active rosuvastatin 40 mg tablet RxNorm: 539947 Take 1 Tablet(s) Oral QPM every evening 07/13/19 24 No Stop Date Active ezetimibe 10 mg tablet RxNorm: 246758 Take 1 Tablet(s) Oral QD 07/13/19 24 No Stop Date Active bisacodyl 10 mg rectal suppository RxNorm: 949497 Insert 1 Suppository Rectal QD as needed 07/13/19 24 No Stop Date Active polyethylene glycol 3350 17 gram/dose oral powder RxNorm: 441212 Take 17 Gram(s) Oral BID as needed mix in 4-8ox water 07/13/19 24 No Stop Date Active ketoconazole 2 % shampoo RxNorm: 446759 Apply 1 Application Topical UD as directed 07/13/19 24 No Stop Date Active aripiprazole 15 mg tablet RxNorm: 550420 Take 1/2 Tablet(s) Oral QD 07/13/19 24 No Stop Date Active Ozempic 1 mg/dose (4 mg/3 mL) subcutaneous pen injector RxNorm: 4616594 Inject 1 Milligram(s) Subcutaneous QW once a week 07/13/19 24 No Stop Date Active Guaifenesin AC 10 mg-100 mg/5 mL oral liquid RxNorm: 524171 Take 10 Milliliter(s) Oral Q4H every four hours as needed 07/13/19 24 No Stop Date Active isosorbide mononitrate ER 60 mg tablet,extended release 24 hr RxNorm: 008766 Take 1 Tablet(s) Oral QD 07/13/19 24 No Stop Date Active ammonium lactate 12 % topical cream RxNorm: 138691 Apply 1 Application Topical BID 07/13/19 24 No Stop Date Active hydrocortisone 2.5 % topical cream RxNorm: 497723 Apply 1 Application Topical BID as needed 07/13/19 24 No Stop Date Active rosuvastatin 20 mg sprinkle capsule RxNorm: 9894775 Take 1 Capsule(s) Oral QD 07/13/19 24 No Stop Date Active Vascepa 1 gram capsule RxNorm: 1786423 Take 2 Capsule(s) Oral BID 07/13/19 24 No Stop Date Active venlafaxine ER 75 mg capsule,extended release 24 hr RxNorm: 728185 Take 3 Capsule(s) Oral QD 07/13/19 24 No Stop Date Active Basaglar KwikPen U-100 Insulin 100 unit/mL (3 mL) subcutaneous RxNorm: 8982077 Inject 30U SubQ twice daily 07/07/19 24 025 Active Please dispense one month supply. Basaglar KwikPen U-100 Insulin 100 unit/mL (3 mL) subcutaneous RxNorm: 5609302 Inject 30U SubQ twice daily 07/07/19 24 024 Inactive Please dispense one month supply. pregabalin 150 mg capsule RxNorm: 865814 Take 1 Capsule(s) Oral QHS every night at bedtime 07/05/19 24 024 Active pregabalin 150 mg capsule RxNorm: 326751 Take 1 Capsule(s) Oral QHS every night at bedtime 07/05/19 024 Inactive polyethylene glycol 3350 17 gram/dose oral powder RxNorm: 907268 Take 1 Packet Oral QD as needed (1 packet = 17g) mix with 4-8oz of liquid 06/15/19 024 Inactive bisacodyl 10 mg rectal suppository RxNorm: 616397 Insert one suppository per rectum once daily as needed for constipation 06/15/19 024 Inactive bisacodyl 10 mg rectal suppository RxNorm: 410772 Insert one suppository per rectum once daily as needed for constipation 06/15/19 024 Inactive pregabalin 100 mg capsule RxNorm: 673894 Take 1 Capsule(s) Oral QAM every morning 04/27/20 024 Inactive Levemir FlexPen 100 unit/mL (3 mL) solution subcutaneous insulin pen RxNorm: 394885 Inject 30 Unit(s) Subcutaneous BID 04/27/20 024 Inactive rosuvastatin 40 mg tablet RxNorm: 948877 Take 1 Tablet(s) Oral QPM every evening 04/16/20 024 Inactive D/C rosuvastatin 20mg venlafaxine ER 75 mg capsule,extended release 24 hr RxNorm: 459160 Take 3 Capsule(s) Oral QD 04/14/20 23 023 Inactive pregabalin 100 mg capsule RxNorm: 685918 Take 1 Capsule(s) Oral QAM every morning [...] meter clotrimazole 1 % topical cream RxNorm: 809855 Take apply topically to abdominal folds twice daily for 14 days 03/12/20 024 Inactive Ozempic 1 mg/dose (4 mg/3 mL) subcutaneous pen injector RxNorm: 9877925 Inject 1 Milligram(s) Subcutaneous QW once a week 03/11/20 023 Inactive rosuvastatin 20 mg tablet RxNorm: 684733 Take 1 Tablet(s) Oral QD 02/26/20 023 Inactive d/c pravastatin 80mg Ozempic 1 mg/dose (4 mg/3 mL) subcutaneous pen injector RxNorm: 8206493 Inject 1 Milligram(s) Subcutaneous QW once a week 02/20/20 023 Inactive pregabalin 150 mg capsule RxNorm: 854374 Take 1 Capsule(s) Oral HS at bed time 02/19/20 023 Inactive pregabalin 100 mg capsule RxNorm: 362543 Take 1 Capsule(s) Oral QAM every morning 02/18/20 023 Inactive venlafaxine ER 75 mg capsule,extended release 24 hr RxNorm: 292564 Take 3 Capsule(s) Oral QD 02/04/20 023 Inactive FreeStyle Chema 2 Sensor kit RxNorm: use as directed 02/04/20 23 023 Inactive FreeStyle Chema 2 Sensor kit RxNorm: use as directed 02/04/20 23 024 Inactive fluconazole 150 mg tablet RxNorm: 848287 Take 1 Tablet(s) Oral on day 3 and on day 6 02/03/20 23 024 Active chlorthalidone 25 mg tablet RxNorm: 112255 Take 1 Tablet(s) Oral QAM every morning 02/03/20 23 No Stop Date Active venlafaxine ER 150 mg capsule,extended release 24 hr RxNorm: 534295 Take 1 Capsule(s) Oral QD 02/03/20 23 023 Inactive acetaminophen 500 mg tablet RxNorm: 812382 1 TABLET ORALLY 3 TIMES DAILY (MAX APAP:4GM/24HR) 12/15/19 23 023 Inactive potassium chloride ER 20 mEq tablet,extended release RxNorm: 442593 Take 1 Tablet(s) Oral BID 12/09/19 024 Inactive d/c 20mEq once daily (sent from hospital) clotrimazole 1 % topical cream RxNorm: 835092 apply 1g topically to top of feet and in between toes BID 12/09/19 023 Inactive nystatin 100,000 unit/gram topical powder RxNorm: 203194 APPLY TO AFFECTED AREAS TOPICALLY 2 TIMES DAILY 11/21/19 024 Inactive Nystop 100,000 unit/gram topical powder RxNorm: 016357 Apply to abd folds, under breasts and L side of groin Topical BID x 14 days, then BID PRN 11/20/19 023 Inactive dx: yeast dermatitis [place] Ultra Strength 4 %-30 %-10 % topical cream RxNorm: 965108 Apply 1 Gram(s) Topical QID PRN to feet and legs for neuropathic pain 11/11/19 024 Active clotrimazole 1 % topical cream RxNorm: 730315 Apply 1/2 Gram(s) Topical BID Apply to affected areas of groin, periarea, and abdominal topically 2 times daily 11/10/19 023 Inactive hydrocortisone 2.5 % topical cream RxNorm: 318072 Apply 1/2 Gram(s) Topical BID as needed 11/10/19 024 Inactive Humulin R U-500 (Concentrated) Insulin 500 unit/mL subcutaneous soln RxNorm: 880080 Inject 100 Unit(s) Subcutaneous TID 10/07/19 23 024 Inactive Levemir FlexPen 100 unit/mL (3 mL) solution subcutaneous insulin pen RxNorm: 955473 Inject 30 Unit(s) Subcutaneous BID 10/07/19 023 Inactive Ozempic 0.25 mg or 0.5 mg (2 mg/3 mL) subcutaneous pen injector RxNorm: 1064269 Inject 1/2 Milligram(s) Subcutaneous QW once a week 10/07/19 23 024 Inactive aripiprazole 15 mg tablet RxNorm: 549384 1/2 TAB (7.5MG) ORALLY DAILY (DX:MAJOR DEPRESSIVE DISORDER) 09/23/19 23 023 Inactive Lancets,Thin 28 gauge RxNorm: Use 1 as directed QID 09/15/19 23 024 Inactive Accu-Chek Guide test strips RxNorm: Use 1 Test Strip QID 09/15/19 23 023 Inactive ok to substitute with any covered alternative test strip torsemide 20 mg tablet RxNorm: 534018 Take 1 Tablet(s) Oral BID 09/09/19 23 024 Inactive d/c once daily dosing carvedilol 25 mg tablet RxNorm: 371657 Take 1 Tablet(s) Oral QD 08/25/19 23 024 Inactive pregabalin 150 mg capsule RxNorm: 519134 1 Capsule(s) Oral HS at bed time 08/18/19 23 023 Inactive pregabalin 100 mg capsule RxNorm: 283837 1 Capsule(s) Oral QAM every morning 08/18/19 23 023 Inactive carvedilol 25 mg tablet RxNorm: 419479 1 Tablet(s) Oral QD 07/28/19 23 023 Inactive lisinopril 20 mg tablet RxNorm: 349532 Give 1 Tablet(s) Oral QD 07/28/19 23 023 Inactive Lyrica 150 mg capsule RxNorm: 751934 Take 1 Capsule(s) Oral QHS every night at bedtime 07/19/19 023 Inactive d/c 100mg dose Diflucan 150 mg tablet RxNorm: 470237 Take 1 Tablet(s) Oral QD repeat on day 3 and 6 07/19/19 23 023 Inactive pregabalin 100 mg capsule RxNorm: 683352 Take 1 Capsule(s) Oral QAM every morning 07/19/19 23 023 Inactive gatifloxacin 0.5 % eye drops RxNorm: 846862 Instill 1 Drop(s) as directed TID Instill 1 drop in to affected eye(s) starting 1 day prior to surgery and continue until gone (do not exceed 4 weeks). 07/13/19 23 023 Inactive carvedilol 25 mg tablet RxNorm: 287505 2 Tablet(s) Oral BID 07/13/19 23 023 Inactive Humulin R Regular U-100 Insulin 100 unit/mL injection solution RxNorm: 190296 85 Unit(s) Injection TID 07/13/19 23 023 Inactive ketorolac 0.5 % eye drops RxNorm: 593817 Instill 1 Drop(s) as directed QID Instill 1 drop into affected eye(s) 4 times daily starting 1 day prior to surgery and continue until gone (do not exceed 4 weeks). 07/13/19 23 023 Inactive Diflucan 150 mg tablet RxNorm: 357129 Take 1 Tablet(s) Oral QD repeat on day 3 and 6 06/30/19 023 Inactive Accu-Chek Guide test strips RxNorm: Use 1 Test Strip QID Use 1 test strip to monitor blood glucose 4 times daily and as needed. Dx:E11.42. 06/23/19 23 023 Inactive ok to substitute with any covered alternative test strip dextromethorphan-gu aifenesin 10 mg-100 mg/5 mL oral liquid RxNorm: 381685 Take 10 Milliliter(s) Oral every 4 hours as needed for cough 06/19/19 023 Inactive dextromethorphan-gu aifenesin 10 mg-100 mg/5 mL oral liquid RxNorm: 655831 Take 10 Milliliter(s) Oral every 4 hours as needed for cough 06/19/19 023 Inactive Lyrica 150 mg capsule RxNorm: 738287 Take 1 Capsule(s) Oral QHS every night at bedtime 06/18/19 023 Inactive d/c 100mg dose aripiprazole 15 mg tablet RxNorm: 924380 1/2 TAB (7.5MG) ORALLY DAILY (DX:MAJOR DEPRESSIVE DISORDER) 06/05/19 23 023 Inactive pregabalin 100 mg capsule RxNorm: 621275 1 Capsule(s) Oral QAM every morning 06/02/19 23 023 Inactive Banophen 50 mg capsule RxNorm: 6870025 Take 1 Capsule(s) Oral Q6H every 6 hours as needed 05/19/19 No Stop Date Active Novolog Flexpen U-100 Insulin aspart 100 unit/mL (3 mL) subcutaneous RxNorm: 5701300 Inject 10 Unit(s) Subcutaneous QHS every night at bedtime with nighttime snack 04/08/20 Inactive Novolog Flexpen U-100 Insulin aspart 100 unit/mL (3 mL) subcutaneous RxNorm: 2724569 Inject 42 Unit(s) Subcutaneous TID in addition to sliding scale 04/08/20 Inactive d/c 36u albuterol sulfate HFA 90 mcg/actuation aerosol inhaler RxNorm: 4399011 Take 2 Puff(s) Inhalation Q4H every four hours as needed as needed for SOB, cough, or wheezing 04/07/20 030 Active Banophen 50 mg capsule RxNorm: 3901820 Take 1 Capsule(s) Oral Q6H every 6 hours as needed 04/06/20 023 Inactive diphenhydramine 50 mg tablet RxNorm: 9063623 Take 1 Tablet(s) Oral Q6H every 6 hours as needed 04/06/20 022 Inactive diphenhydramine 50 mg tablet RxNorm: 2129170 1 Tablet(s) Oral Q6H every 6 hours as needed 04/06/20 022 Inactive Abilify 15 mg tablet RxNorm: 059799 1/2 Tablet(s) Oral QD 03/10/20 023 Inactive Shingrix (PF) 50 mcg/0.5 mL intramuscular suspension, kit RxNorm: 0813248 Administer 1/2 Milliliter(s) Intramuscular QD one time shingrix step 2 ( step 1 given 11/04/21) WITH needle - Nursing please administer upon arrival and once administered post a bridge message with date of administration, process designer, expiration date, and lot# so we can update [facility] 02/18/20 22 022 Inactive dispense with needle Shingrix (PF) 50 mcg/0.5 mL intramuscular suspension, kit RxNorm: 9568253 Administer 1/2 Milliliter(s) Intramuscular QD one time shingrix step 2 ( step 1 given 11/04/21) WITH needle - Nursing please administer upon arrival and once administered post a bridge message with date of administration, process designer, expiration date, and lot# so we can update [facility] 02/18/20 22 Inactive dispense with needle polyethylene glycol 3350 17 gram/dose oral powder RxNorm: 134852 Take 17=1 capful Gram(s) Oral QD mix with 4-8oz of liquid 01/08/20 22 023 Inactive take this in addition to BID prn order Lyrica 100 mg capsule RxNorm: 221378 Take 1 Capsule(s) Oral QAM every morning 01/08/20 22 022 Inactive d/c 50mg dose acetaminophen 500 mg tablet RxNorm: 717841 Take 1 Tablet(s) Oral TID 01/08/20 22 022 Inactive d/c PRN order Lyrica 150 mg capsule RxNorm: 201072 Take 1 Capsule(s) Oral QHS every night at bedtime 01/08/20 22 023 Inactive d/c 100mg dose Abilify 5 mg tablet RxNorm: 630135 Take 1 Tablet(s) Oral QD take 1 tab po QD #30 refill 5 dx: MDD 12/12/19 22 022 Inactive Abilify 5 mg tablet RxNorm: 362849 Take 1 Tablet(s) Oral QD take 1 tab po QD #30 refill 5 dx: MDD 12/12/19 22 022 Inactive Novolog Flexpen U-100 Insulin aspart 100 unit/mL (3 mL) subcutaneous RxNorm: 9248423 Inject 42 Unit(s) Subcutaneous TID in addition to sliding scale 12/10/19 22 022 Inactive d/c 36u chlorthalidone 25 mg tablet RxNorm: 585025 Take 1 Tablet(s) Oral QAM every morning 12/10/19 22 023 Inactive pregabalin 50 mg capsule RxNorm: 753080 Take 1 Capsule(s) Oral QAM every morning 11/12/19 22 022 Inactive tetanus-diphtheria toxoids-Td 2 Lf unit-2 Lf unit/0.5 mL IM suspension RxNorm: 139 Take 0.5 Miscellaneous Intramuscular 11/12/19 22 022 Inactive need tdap - nursing to administer upon arrival pregabalin 50 mg capsule RxNorm: 580500 Take 1 Capsule(s) Oral QAM every morning 10/16/19 22 022 Inactive pregabalin 50 mg capsule RxNorm: 651671 Take 1 Capsule(s) Oral QAM every morning 10/16/19 22 022 Inactive pregabalin 50 mg capsule RxNorm: 929322 1 Capsule(s) Oral QAM every morning 10/15/19 22 022 Inactive Shingrix (PF) 50 mcg/0.5 mL intramuscular suspension, kit RxNorm: 9245405 Administer 1/2 Milliliter(s) Intramuscular one time Nursing please administer upon arrival and once administered post a bridge message with date of administration, process designer, expiration date, and lot# so we can update [facility]. 10/09/19 22 022 Inactive shingrix step 1 Shingrix (PF) 50 mcg/0.5 mL intramuscular suspension, kit RxNorm: 7967753 Administer 1/2 Milliliter(s) Intramuscular one time Nursing please administer upon arrival and once administered post a bridge message with date of administration, process designer, expiration date, and lot# so we can update [facility]. 10/09/19 22 022 Inactive shingrix step 1 cholecalciferol (vitamin D3) 1,250 mcg (50,000 unit) capsule RxNorm: 623579 Take 1 Capsule(s) Oral QW once a [...] aspart 100 unit/mL (3 mL) subcutaneous RxNorm: 0965126 Inject 10 Unit(s) Subcutaneous QHS every night at bedtime with nighttime snack 10/08/19 22 Inactive Shingrix (PF) 50 mcg/0.5 mL intramuscular suspension, kit RxNorm: 8955035 ADMINISTER 2-DOSE SERIES PER CDC GUIDELINES 10/08/19 22 Active Shingrix (PF) 50 mcg/0.5 mL intramuscular suspension, kit RxNorm: 2942533 ADMINISTER 2-DOSE SERIES PER CDC GUIDELINES 10/08/19 22 Inactive Novolog Flexpen U-100 Insulin aspart 100 unit/mL (3 mL) subcutaneous RxNorm: 9646589 Inject 36 Unit(s) Subcutaneous TID in addition to sliding scale 10/08/19 Inactive Novofine Autocover 30 gauge x 1/3 needle RxNorm: Use 1 Miscellaneous UD as directed Use 1 needle as directed to administer insulin 5 times a day Dx:E11.42. 10/03/19 Inactive ok to substitute with any covered alternative pen needle benzoyl peroxide 10 % topical cleanser RxNorm: 486788 Apply 1 Application Topical QD apply to face, wash rinse and dry once daily (may change to QOD if drying) 08/19/19 022 Inactive (%covered by insurance) #60ml refill 11 dx: acne benzoyl peroxide 10 % topical cleanser RxNorm: 486450 Apply 1 Application Topical QD apply to face, wash rinse and dry once daily (may change to QOD if drying) 08/19/19 22 022 Inactive (%covered by insurance) #60ml refill 11 dx: acne benzoyl peroxide 10 % topical cleanser RxNorm: 626193 Apply 1 Application Topical QD apply to face, wash rinse and dry once daily (may change to QOD if drying) 08/19/19 22 022 Inactive (%covered by insurance) #60ml refill 11 dx: acne Lyrica 50 mg capsule RxNorm: 495673 Take 1 Capsule(s) Oral QAM every morning Take 1 capsule by mouth once daily 08/19/19 22 022 Inactive benzoyl peroxide 10 % topical cleanser RxNorm: 192304 Apply 1 Application Topical QD apply to face, wash rinse and dry once daily (may change to QOD if drying) 08/19/19 22 Inactive (%covered by insurance) #60ml refill 11 dx: acne Lyrica 100 mg capsule RxNorm: 869874 Take 1 Capsule(s) Oral QHS every night at bedtime Take 1 capsule by mouth once daily at bedtime 08/19/19 22 022 Inactive Lyrica 100 mg capsule RxNorm: 608891 Take 1 Capsule(s) Oral QHS every night at bedtime Take 1 capsule by mouth once daily at bedtime 08/16/19 22 022 Inactive Lyrica 50 mg capsule RxNorm: 378058 Take 1 Capsule(s) Oral QAM every morning Take 1 capsule by mouth once daily 08/16/19 22 022 Inactive Levemir FlexTouch U-100 Insulin 100 unit/mL (3 mL) subcutaneous pen RxNorm: 629202 Inject 86 Unit(s) Subcutaneous BID 08/05/19 22 022 Inactive d/c 83units BID Lyrica 100 mg capsule RxNorm: 296241 Take 1 Capsule(s) Oral QHS every night at bedtime Take 1 capsule by mouth once daily at bedtime 07/14/19 22 022 Inactive Lyrica 50 mg capsule RxNorm: 057213 Take 1 Capsule(s) Oral QAM every morning Take 1 capsule by mouth once daily 07/14/19 22 022 Inactive Levemir FlexTouch U-100 Insulin 100 unit/mL (3 mL) subcutaneous pen RxNorm: 069614 Inject 83 Unit(s) Subcutaneous BID 07/08/19 22 [...] test strip hydralazine 50 mg tablet RxNorm: 137899 Take 1 Tablet(s) Oral QID 05/05/20 21 022 Inactive venlafaxine ER 225 mg tablet,extended release 24 hr RxNorm: 883193 Take 1 Tablet(s) Oral QD 05/05/20 21 021 Inactive venlafaxine ER 225 mg tablet,extended release 24 hr RxNorm: 788358 Take 1 Tablet(s) Oral QD 05/05/20 21 022 Inactive isosorbide mononitrate ER 30 mg tablet,extended release 24 hr RxNorm: 814168 Take 1 Tablet(s) Oral QD 05/05/20 21 024 Inactive hydralazine 50 mg tablet RxNorm: 644482 Take 1 Tablet(s) Oral QID 05/05/20 21 021 Inactive aspirin 81 mg tablet,delayed release RxNorm: 772424 Take 1 Tablet(s) Oral QD 03/31/20 21 022 Inactive Vitamin D2 1,250 mcg (50,000 unit) capsule RxNorm: 2517219 Take 1 Capsule(s) Oral QW once a week x 12 weeks 03/31/20 022 Inactive Vitamin D2 1,250 mcg (50,000 unit) capsule RxNorm: 8383827 Take 1 Capsule(s) Oral QW once a week 03/31/20 021 Inactive Zetia 10 mg tablet RxNorm: 310118 Take 1 Tablet(s) Oral QD 03/31/20 024 Inactive Zetia 10 mg tablet RxNorm: 191967 Take 1 Tablet(s) Oral QD 03/31/20 Inactive hydralazine 25 mg tablet RxNorm: 008870 Take 1 Tablet(s) Oral QID 03/31/20 021 Inactive hydralazine 25 mg tablet RxNorm: 405469 Take 1 Tablet(s) Oral QID 03/31/20 021 Inactive hydralazine 10 mg tablet RxNorm: 572987 Take 1 Tablet(s) Oral QID 03/03/20 021 Inactive cephalexin 500 mg tablet RxNorm: 549910 Take 1 Tablet(s) Oral QID 02/27/20 021 Inactive cephalexin 500 mg tablet RxNorm: 268903 Take 1 Tablet(s) Oral QID 02/27/20 021 Inactive lisinopril 40 mg tablet RxNorm: 652954 Take 1 Tablet(s) Oral QD 02/11/20 023 Inactive Eliquis 5 mg tablet RxNorm: 4820291 Take 1 Tablet(s) Oral BID 01/05/20 022 Inactive Eliquis 5 mg tablet RxNorm: 7268432 Take 2 Tablet(s) Oral QD 01/01/20 021 Inactive Lyrica 50 mg capsule RxNorm: 261015 Take 1 Capsule(s) Oral QAM every morning 12/24/19 21 021 Inactive Lyrica 100 mg capsule RxNorm: 797450 Take 1 Capsule(s) Oral QHS every night at bedtime 12/24/19 21 021 Inactive clotrimazole 1 % topical cream RxNorm: 650738 Apply to right foot and toes Topical BID 12/04/19 21 023 Inactive metoprolol succinate ER 200 mg tablet,extended release 24 hr RxNorm: 372082 Take 1 Tablet(s) Oral QD 12/04/19 21 023 Inactive ciprofloxacin 500 mg tablet RxNorm: 312295 Take 1 Tablet(s) Oral QD 11/30/19 21 021 Inactive DX ofloxacin otic drops Accu-Chek Guide test strips RxNorm: USE 1 TO CHECK GLUCOSE 4 TIMES DAILY AND NEEDED 11/15/19 21 023 Inactive Blood Glucose Test strips RxNorm: Use 1 Test Strip QID at PRN 11/05/19 21 023 Inactive E11.42 lisinopril 30 mg tablet RxNorm: 561331 Take 1 Tablet(s) Oral QD 10/30/19 021 Inactive lisinopril 20 mg tablet RxNorm: 331169 Take 1 Tablet(s) Oral QD 10/23/19 21 021 Inactive lisinopril 20 mg tablet RxNorm: 781744 Take 1 Tablet(s) Oral QD 10/23/19 21 021 Inactive lisinopril 10 mg tablet RxNorm: 010743 Take 1 Tablet(s) Oral QD 10/02/19 21 021 Inactive icosapent ethyl 1 gram capsule RxNorm: 0003452 Take 2 Capsule(s) (2 gm) Oral BID with meals 09/12/19 21 024 Inactive Okay to dispense one 2gm tab if you have that available. icosapent ethyl 1 gram capsule RxNorm: 2439030 Take 2 Capsule(s) Oral BID 09/12/19 21 021 Inactive Okay to dispense one 2gm tab if you have that available. amlodipine 10 mg tablet RxNorm: 216579 Take 1 Tablet(s) Oral QD 09/04/19 21 022 Inactive aspirin 81 mg tablet,delayed release RxNorm: 799085 Take 1 Tablet(s) Oral QD 09/04/19 21 021 Inactive Levemir FlexTouch U-100 Insulin 100 unit/mL (3 mL) subcutaneous pen RxNorm: 307411 Inject 150 Unit(s) Subcutaneous BID 09/04/19 022 Inactive venlafaxine ER 150 mg tablet,extended release 24 hr RxNorm: 436597 Take 1 Tablet(s) Oral QD 09/04/19 Inactive clotrimazole-betame thasone 1 %-0.05 % topical cream RxNorm: 827571 Apply to rash on red area on left abdomen/chest Topical BID 08/10/19 21 Inactive amlodipine 5 mg tablet RxNorm: 697723 Take 1 Tablet(s) Oral QD 07/31/19 Inactive cephalexin 500 mg tablet RxNorm: 221265 Take 1 Tablet(s) Oral BID BID - Twice Daily 07/31/19 Inactive Start 08/01/20 pantoprazole 40 mg tablet,delayed release RxNorm: 149028 Take 1 Tablet(s) Oral QAM every morning 07/08/19 022 Inactive senna 8.6 mg tablet RxNorm: 769508 Take 1 Tablet(s) Oral QD 07/08/19 022 Inactive carbamazepine 200 mg tablet RxNorm: 174760 Take 1 Tablet(s) Oral BID 07/08/19 022 Inactive clopidogrel 75 mg tablet RxNorm: 646986 Take 1 Tablet(s) Oral QD 07/08/19 021 Inactive Blood Glucose Test strips RxNorm: Use 1 Test Strip QID at PRN 07/08/19 021 Inactive E11.42 Novolog Flexpen U-100 Insulin aspart 100 unit/mL (3 mL) subcutaneous RxNorm: 9435147 Administer per sliding scale Milliliter(s) Subcutaneous TID 151-200: 10 u; 201-250: 20 u; 251-300: 30 u; 301-350: 40 u; 351-400: 50 u. 07/08/19 022 Inactive lisinopril 5 mg tablet RxNorm: 041119 Take 1 Tablet(s) Oral QD 07/08/19 021 Inactive Novolog Flexpen U-100 Insulin aspart 100 unit/mL (3 mL) subcutaneous RxNorm: 2096041 Inject 85 Unit(s) Subcutaneous TID 07/08/19 022 Inactive pravastatin 80 mg tablet RxNorm: 295165 Take 1 Tablet(s) Oral QHS every night at bedtime 07/08/19 023 Inactive clotrimazole 1 % topical cream RxNorm: 850099 Apply to bilateral groin areas Topical BID 07/08/19 022 Inactive metoprolol succinate ER 200 mg tablet,extended release 24 hr RxNorm: 699738 Take 1 Tablet(s) Oral QD 07/08/19 21 021 Inactive Vitamin D3 25 mcg (1,000 unit) tablet RxNorm: 267233 Take 1 Tablet(s) Oral QD 07/08/19 021 Inactive isosorbide dinitrate 30 mg tablet RxNorm: 347289 Take 1 Tablet(s) Oral QD 07/08/19 021 Inactive Levemir FlexTouch U-100 Insulin 100 unit/mL (3 mL) subcutaneous pen RxNorm: 537560 Inject 140 Unit(s) Subcutaneous BID 07/08/19 021 Inactive torsemide 20 mg tablet RxNorm: 330961 Take 1 Tablet(s) Oral QD 07/08/19 023 Inactive venlafaxine 75 mg tablet RxNorm: 957115 Take 1 Tablet(s) Oral QD 07/08/19 021 Inactive acetaminophen 500 mg tablet RxNorm: 663549 Take 1 Tablet(s) Oral TID as needed for headache 06/18/19 021 Inactive acetaminophen 500 mg tablet RxNorm: 016590 Take 1 Tablet(s) Oral TID as needed for headache 06/18/19 021 Inactive Lyrica 100 mg capsule RxNorm: 911454 Take 1 Capsule(s) Oral QHS every night at bedtime 06/11/19 021 Inactive Lyrica 50 mg capsule RxNorm: 798245 Take 1 Capsule(s) Oral QAM every morning 06/10/19 21 021 Inactive hydrocortisone 2.5 % topical cream RxNorm: 462495 Apply to bilateral groin creases Topical BID 05/15/20 20 021 Inactive clotrimazole 1 % topical cream RxNorm: 187992 Apply to bilateral groin areas Topical BID 05/15/20 20 021 Inactive Lyrica 50 mg capsule RxNorm: 299775 Take 1 Capsule(s) Oral QAM every morning 05/14/20 20 020 Inactive Lyrica 100 mg capsule RxNorm: 834287 Take 1 Capsule(s) Oral QHS every night [...] Inactive Nystop 100,000 unit/gram topical powder RxNorm: 254798 Apply to abd folds, under breasts and L side of groin Topical BID x 14 days, then BID PRN 04/08/20 20 020 Inactive dx: yeast dermatitis Lyrica 100 mg capsule RxNorm: 682361 Take 1 Capsule(s) Oral QHS every night at bedtime 03/13/20 20 020 Inactive Lyrica 50 mg capsule RxNorm: 221580 Take 1 Capsule(s) Oral QAM every morning 03/13/20 20 020 Inactive ketoconazole 2 % shampoo RxNorm: 291845 Apply Topical two times a week with showers 03/11/20 20 Inactive cholecalciferol (vitamin D3) 50 mcg (2,000 unit) tablet RxNorm: 662942 Take 1 Tablet(s) Oral QD 03/11/20 021 Inactive Zetia 10 mg tablet RxNorm: 758992 Take 1 Tablet(s) Oral QD 03/07/20 021 Inactive Zetia 10 mg tablet RxNorm: 640765 Take 1 Tablet(s) Oral QD 03/07/20 Inactive Lyrica 50 mg capsule RxNorm: 845528 Take 1 Capsule(s) Oral QAM every morning 02/15/20 Inactive Lyrica 100 mg capsule RxNorm: 081740 Take 1 Capsule(s) Oral QHS every night at bedtime 02/15/20 Inactive Lyrica 100 mg capsule RxNorm: 355742 Take 1 Capsule(s) Oral QHS every night at bedtime 02/15/20 Inactive Lyrica 50 mg capsule RxNorm: 590206 Take 1 Capsule(s) Oral QAM every morning 02/15/20 20 Inactive metoprolol succinate ER 200 mg tablet,extended release 24 hr RxNorm: 991032 Take 1 Tablet(s) Oral QD 08/12/19 23 Active loperamide 2 mg capsule RxNorm: 882405 Take 1 Capsule(s) Oral QID as needed 06/12/19 22 Active hydralazine 50 mg tablet RxNorm: 836885 Take 1 Tablet(s) Oral QID 08/12/19 23 Active venlafaxine ER 75 mg capsule,extended release 24 hr RxNorm: 900473 Take 3 Capsule(s) Oral QD 06/12/19 22 023 Inactive polyethylene glycol 3350 17 gram/dose oral powder RxNorm: 643561 Take 17=1 capful Gram(s) Oral BID as needed mix with 4-8oz of liquid 06/12/19 22 024 Inactive icosapent ethyl 1 gram capsule RxNorm: 3311316 Take 2 Capsule(s) (2 gm) Oral BID with meals 10/07/19 23 023 Inactive Okay to dispense one 2gm tab if you have that available. Levemir FlexTouch U-100 Insulin 100 unit/mL (3 mL) subcutaneous pen RxNorm: 082912 Inject 80 Unit(s) Subcutaneous BID 07/14/19 23 023 Inactive Novolog Flexpen U-100 Insulin aspart 100 unit/mL (3 mL) subcutaneous RxNorm: 9444840 Insert 30 Unit(s) Subcutaneous TID with meals 10/08/19 22 022 Inactive Medication Administered No Medication Administered data Reason For Visit No Reason For Visit data Plan of Care Planned Activity Notes Codes Status Date Referral: [facility]: [phone] , [address] [id number] [place] Referral Records Received 09/21/2022 Referral: [facility]: [address] [id number] [place] Referral Completed 05/28/2021 Referral: General Cardiology [...] Sister Jyotsna involved in his care cell# [phone] Guardian: Don (tapan met in person 09/01/21), now has Lexii (same group as don)Lab Schedule: /September*September (CBC with diff, CMP, A1c) (Novemebr: CBC, CMP, A1c, Lipids, VitD) 10/08/2023
--- OUTSIDE RECORDS SUMMARY | 2023-11-03 11:28 | XMS_ITS | CCD ---
Author Name Cecilio Durham feliberto Address [address] [address] [place] [address] Phone Organization [facility] Phone Care Team Providers Care Hydrologic Modeler Name Role Phone Harrison Durham Primary Care Provider Leona vailable Harrison Durham Chronic Care Management U navailable Summary Purpose DataExchange Insurance Providers Payer name Policy type / Coverage type Covered democrat ID Effective Begin Date Effective End Date Medicare [place] Medicare Part B [id number] Unknown Unknown Medicaid [place] Medicare Part B [id number] Unknown Unknown Family history Sister Brittany Suggs [...] Unknown Residential 09/03/[address]: 6389395 Non-Smoker / No History of Smoking 09/02/[address]: [id number] No Alcohol Consum ption 09/02/2020 Allergies, Adverse Reactions, Alerts Substance Reaction Codes Entered Date Inactivated Date Status * NO KNOWN FOOD ALLERGIES Unknown 07/13/2023 No Inactive Date Active LISINOPRIL RxNorm: 58074 02/12/2020 No Inactive Da te Active Metformin [...] ICD-10: E78. 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 ICD-10: Z79.4 02/10 [...] %-0.3 % drops in a dropperette RxNorm: 268496 Apply 1-2 Drop(s) Both eyes BID as needed 09/28/19 24 025 Active erythromycin 5 mg/gram (0.5 %) eye ointment RxNorm: 910572 Apply 1 Application Both eyes QHS every night at bedtime Instill ~1 cm ribbon into affected eye 09/28/19 24 024 Inactive Artificial Tears (PF) 0.1 %-0.3 % drops in a dropperette RxNorm: 552357 Apply 1-2 Drop(s) Both eyes BID as needed 09/28/19 24 024 Inactive erythromycin 5 mg/gram (0.5 %) eye ointment RxNorm: 196402 Apply 1 Application Both eyes QHS every night at bedtime Instill ~1 cm ribbon into affected eye 09/28/19 24 024 Inactive acetaminophen 500 mg tablet RxNorm: 414433 (MAX APAP:4GM/24HR) Take 1 Tablet(s) Oral TID as needed for pain 09/24/19 24 024 Inactive carvedilol 25 mg tablet RxNorm: 940711 Take 1 Tablet(s) Oral QD 09/08/19 24 No Stop Date Active pregabalin 100 mg capsule RxNorm: 208484 Take 1 Capsule(s) Oral QAM every morning 09/07/19 24 024 Active rosuvastatin 40 mg tablet RxNorm: 765278 Take 1 Tablet(s) Oral QPM every evening 07/13/19 24 No Stop Date Active ezetimibe 10 mg tablet RxNorm: 307718 Take 1 Tablet(s) Oral QD 07/13/19 24 No Stop Date Active bisacodyl 10 mg rectal suppository RxNorm: 186516 Insert 1 Suppository Rectal QD as needed 07/13/19 24 No Stop Date Active polyethylene glycol 3350 17 gram/dose oral powder RxNorm: 744921 Take 17 Gram(s) Oral BID as needed mix in 4-8ox water 07/13/19 24 No Stop Date Active ketoconazole 2 % shampoo RxNorm: 115096 Apply 1 Application Topical UD as directed 07/13/19 24 No Stop Date Active aripiprazole 15 mg tablet RxNorm: 372188 Take 1/2 Tablet(s) Oral QD 07/13/19 24 No Stop Date Active Ozempic 1 mg/dose (4 mg/3 mL) subcutaneous pen injector RxNorm: 3366242 Inject 1 Milligram(s) Subcutaneous QW once a week 07/13/19 24 No Stop Date Active Guaifenesin AC 10 mg-100 mg/5 mL oral liquid RxNorm: 972690 Take 10 Milliliter(s) Oral Q4H every four hours as needed 07/13/19 24 No Stop Date Active isosorbide mononitrate ER 60 mg tablet,extended release 24 hr RxNorm: 256540 Take 1 Tablet(s) Oral QD 07/13/19 24 No Stop Date Active ammonium lactate 12 % topical cream RxNorm: 096416 Apply 1 Application Topical BID 07/13/19 24 No Stop Date Active hydrocortisone 2.5 % topical cream RxNorm: 674498 Apply 1 Application Topical BID as needed 07/13/19 24 No Stop Date Active rosuvastatin 20 mg sprinkle capsule RxNorm: 4980090 Take 1 Capsule(s) Oral QD 07/13/19 24 No Stop Date Active Vascepa 1 gram capsule RxNorm: 7194264 Take 2 Capsule(s) Oral BID 07/13/19 24 No Stop Date Active venlafaxine ER 75 mg capsule,extended release 24 hr RxNorm: 746029 Take 3 Capsule(s) Oral QD 07/13/19 24 No Stop Date Active Basaglar KwikPen U-100 Insulin 100 unit/mL (3 mL) subcutaneous RxNorm: 2473135 Inject 30U SubQ twice daily 07/07/19 24 025 Active Please dispense one month supply. Basaglar KwikPen U-100 Insulin 100 unit/mL (3 mL) subcutaneous RxNorm: 5229106 Inject 30U SubQ twice daily 07/07/19 24 024 Inactive Please dispense one month supply. pregabalin 150 mg capsule RxNorm: 886470 Take 1 Capsule(s) Oral QHS every night at bedtime 07/05/19 024 Active pregabalin 150 mg capsule RxNorm: 290579 Take 1 Capsule(s) Oral QHS every night at bedtime 07/05/19 24 024 Inactive polyethylene glycol 3350 17 gram/dose oral powder RxNorm: 972696 Take 1 Packet Oral QD as needed (1 packet = 17g) mix with 4-8oz of liquid 06/15/19 24 024 Inactive bisacodyl 10 mg rectal suppository RxNorm: 963880 Insert one suppository per rectum once daily as needed for constipation 06/15/19 24 024 Inactive bisacodyl 10 mg rectal suppository RxNorm: 766730 Insert one suppository per rectum once daily as needed for constipation 06/15/19 24 024 Inactive pregabalin 100 mg capsule RxNorm: 892311 Take 1 Capsule(s) Oral QAM every morning 04/27/20 024 Inactive Levemir FlexPen 100 unit/mL (3 mL) solution subcutaneous insulin pen RxNorm: 740320 Inject 30 Unit(s) Subcutaneous BID 04/27/20 23 024 Inactive rosuvastatin 40 mg tablet RxNorm: 945009 Take 1 Tablet(s) Oral QPM every evening 04/16/20 024 Inactive D/C rosuvastatin 20mg venlafaxine ER 75 mg capsule,extended release 24 hr RxNorm: 387040 Take 3 Capsule(s) Oral QD 04/14/20 23 023 Inactive pregabalin 100 mg capsule RxNorm: 233381 Take 1 Capsule(s) Oral QAM every morning [...] meter clotrimazole 1 % topical cream RxNorm: 689799 Take apply topically to abdominal folds twice daily for 14 days 03/12/20 024 Inactive Ozempic 1 mg/dose (4 mg/3 mL) subcutaneous pen injector RxNorm: 4784129 Inject 1 Milligram(s) Subcutaneous QW once a week 03/11/20 23 023 Inactive rosuvastatin 20 mg tablet RxNorm: 967087 Take 1 Tablet(s) Oral QD 02/26/20 23 023 Inactive d/c pravastatin 80mg Ozempic 1 mg/dose (4 mg/3 mL) subcutaneous pen injector RxNorm: 6822527 Inject 1 Milligram(s) Subcutaneous QW once a week 02/20/20 23 023 Inactive pregabalin 150 mg capsule RxNorm: 397810 Take 1 Capsule(s) Oral HS at bed time 02/19/20 23 023 Inactive pregabalin 100 mg capsule RxNorm: 756398 Take 1 Capsule(s) Oral QAM every morning 02/18/20 23 023 Inactive venlafaxine ER 75 mg capsule,extended release 24 hr RxNorm: 060879 Take 3 Capsule(s) Oral QD 02/04/20 23 023 Inactive FreeStyle Chema 2 Sensor kit RxNorm: use as directed 02/04/20 023 Inactive FreeStyle Chema 2 Sensor kit RxNorm: use as directed 02/04/20 23 024 Inactive fluconazole 150 mg tablet RxNorm: 110598 Take 1 Tablet(s) Oral on day 3 and on day 6 02/03/20 23 024 Active chlorthalidone 25 mg tablet RxNorm: 807337 Take 1 Tablet(s) Oral QAM every morning 02/03/20 23 No Stop Date Active venlafaxine ER 150 mg capsule,extended release 24 hr RxNorm: 998514 Take 1 Capsule(s) Oral QD 02/03/20 023 Inactive acetaminophen 500 mg tablet RxNorm: 676306 1 TABLET ORALLY 3 TIMES DAILY (MAX APAP:4GM/24HR) 12/15/19 023 Inactive potassium chloride ER 20 mEq tablet,extended release RxNorm: 194315 Take 1 Tablet(s) Oral BID 12/09/19 024 Inactive d/c 20mEq once daily (sent from hospital) clotrimazole 1 % topical cream RxNorm: 721148 apply 1g topically to top of feet and in between toes BID 12/09/19 023 Inactive nystatin 100,000 unit/gram topical powder RxNorm: 898705 APPLY TO AFFECTED AREAS TOPICALLY 2 TIMES DAILY 11/21/19 024 Inactive Nystop 100,000 unit/gram topical powder RxNorm: 756814 Apply to abd folds, under breasts and L side of groin Topical BID x 14 days, then BID PRN 11/20/19 023 Inactive dx: yeast dermatitis [place] Ultra Strength 4 %-30 %-10 % topical cream RxNorm: 634334 Apply 1 Gram(s) Topical QID PRN to feet and legs for neuropathic pain 11/11/19 024 Active clotrimazole 1 % topical cream RxNorm: 156285 Apply 1/2 Gram(s) Topical BID Apply to affected areas of groin, periarea, and abdominal topically 2 times daily 11/10/19 023 Inactive hydrocortisone 2.5 % topical cream RxNorm: 934056 Apply 1/2 Gram(s) Topical BID as needed 11/10/19 024 Inactive Humulin R U-500 (Concentrated) Insulin 500 unit/mL subcutaneous soln RxNorm: 008717 Inject 100 Unit(s) Subcutaneous TID 10/07/19 024 Inactive Levemir FlexPen 100 unit/mL (3 mL) solution subcutaneous insulin pen RxNorm: 851615 Inject 30 Unit(s) Subcutaneous BID 10/07/19 023 Inactive Ozempic 0.25 mg or 0.5 mg (2 mg/3 mL) subcutaneous pen injector RxNorm: 0215170 Inject 1/2 Milligram(s) Subcutaneous QW once a week 10/07/19 024 Inactive aripiprazole 15 mg tablet RxNorm: 381343 1/2 TAB (7.5MG) ORALLY DAILY (DX:MAJOR DEPRESSIVE DISORDER) 09/23/19 23 023 Inactive Lancets,Thin 28 gauge RxNorm: Use 1 as directed QID 09/15/19 23 024 Inactive Accu-Chek Guide test strips RxNorm: Use 1 Test Strip QID 09/15/19 23 023 Inactive ok to substitute with any covered alternative test strip torsemide 20 mg tablet RxNorm: 679354 Take 1 Tablet(s) Oral BID 09/09/19 024 Inactive d/c once daily dosing carvedilol 25 mg tablet RxNorm: 512264 Take 1 Tablet(s) Oral QD 08/25/19 024 Inactive pregabalin 150 mg capsule RxNorm: 370032 1 Capsule(s) Oral HS at bed time 08/18/19 23 023 Inactive pregabalin 100 mg capsule RxNorm: 453191 1 Capsule(s) Oral QAM every morning 08/18/19 23 023 Inactive carvedilol 25 mg tablet RxNorm: 298791 1 Tablet(s) Oral QD 07/28/19 023 Inactive lisinopril 20 mg tablet RxNorm: 989558 Give 1 Tablet(s) Oral QD 07/28/19 23 023 Inactive Lyrica 150 mg capsule RxNorm: 923567 Take 1 Capsule(s) Oral QHS every night at bedtime 07/19/19 023 Inactive d/c 100mg dose Diflucan 150 mg tablet RxNorm: 415855 Take 1 Tablet(s) Oral QD repeat on day 3 and 6 07/19/19 23 023 Inactive pregabalin 100 mg capsule RxNorm: 203775 Take 1 Capsule(s) Oral QAM every morning 07/19/19 23 023 Inactive gatifloxacin 0.5 % eye drops RxNorm: 582250 Instill 1 Drop(s) as directed TID Instill 1 drop in to affected eye(s) starting 1 day prior to surgery and continue until gone (do not exceed 4 weeks). 07/13/19 23 023 Inactive carvedilol 25 mg tablet RxNorm: 575799 2 Tablet(s) Oral BID 07/13/19 023 Inactive Humulin R Regular U-100 Insulin 100 unit/mL injection solution RxNorm: 040136 85 Unit(s) Injection TID 07/13/19 023 Inactive ketorolac 0.5 % eye drops RxNorm: 485934 Instill 1 Drop(s) as directed QID Instill 1 drop into affected eye(s) 4 times daily starting 1 day prior to surgery and continue until gone (do not exceed 4 weeks). 07/13/19 023 Inactive Diflucan 150 mg tablet RxNorm: 525435 Take 1 Tablet(s) Oral QD repeat on day 3 and 6 06/30/19 23 023 Inactive Accu-Chek Guide test strips RxNorm: Use 1 Test Strip QID Use 1 test strip to monitor blood glucose 4 times daily and as needed. Dx:E11.42. 06/23/19 23 023 Inactive ok to substitute with any covered alternative test strip dextromethorphan-gu aifenesin 10 mg-100 mg/5 mL oral liquid RxNorm: 045687 Take 10 Milliliter(s) Oral every 4 hours as needed for cough 06/19/19 23 023 Inactive dextromethorphan-gu aifenesin 10 mg-100 mg/5 mL oral liquid RxNorm: 234542 Take 10 Milliliter(s) Oral every 4 hours as needed for cough 06/19/19 23 023 Inactive Lyrica 150 mg capsule RxNorm: 016375 Take 1 Capsule(s) Oral QHS every night at bedtime 06/18/19 23 023 Inactive d/c 100mg dose aripiprazole 15 mg tablet RxNorm: 955944 1/2 TAB (7.5MG) ORALLY DAILY (DX:MAJOR DEPRESSIVE DISORDER) 06/05/19 23 023 Inactive pregabalin 100 mg capsule RxNorm: 729065 1 Capsule(s) Oral QAM every morning 06/02/19 023 Inactive Banophen 50 mg capsule RxNorm: 4419818 Take 1 Capsule(s) Oral Q6H every 6 hours as needed 05/19/19 No Stop Date Active Novolog Flexpen U-100 Insulin aspart 100 unit/mL (3 mL) subcutaneous RxNorm: 9585136 Inject 10 Unit(s) Subcutaneous QHS every night at bedtime with nighttime snack 04/08/20 022 Inactive Novolog Flexpen U-100 Insulin aspart 100 unit/mL (3 mL) subcutaneous RxNorm: 1367747 Inject 42 Unit(s) Subcutaneous TID in addition to sliding scale 04/08/20 Inactive d/c 36u albuterol sulfate HFA 90 mcg/actuation aerosol inhaler RxNorm: 9084335 Take 2 Puff(s) Inhalation Q4H every four hours as needed as needed for SOB, cough, or wheezing 04/07/20 030 Active Banophen 50 mg capsule RxNorm: 0880744 Take 1 Capsule(s) Oral Q6H every 6 hours as needed 04/06/20 023 Inactive diphenhydramine 50 mg tablet RxNorm: 2246849 Take 1 Tablet(s) Oral Q6H every 6 hours as needed 04/06/20 022 Inactive diphenhydramine 50 mg tablet RxNorm: 6665701 1 Tablet(s) Oral Q6H every 6 hours as needed 04/06/20 022 Inactive Abilify 15 mg tablet RxNorm: 055928 1/2 Tablet(s) Oral QD 03/10/20 023 Inactive Shingrix (PF) 50 mcg/0.5 mL intramuscular suspension, kit RxNorm: 9108274 Administer 1/2 Milliliter(s) Intramuscular QD one time shingrix step 2 ( step 1 given 11/04/21) WITH needle - Nursing please administer upon arrival and once administered post a 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, 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, 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, and lot# so we can update [facility] 02/18/20 22 022 Inactive dispense with needle Shingrix (PF) 50 mcg/0.5 mL intramuscular suspension, kit RxNorm: 3778945 Administer 1/2 Milliliter(s) Intramuscular QD one time shingrix step 2 ( step 1 given 11/04/21) WITH needle - Nursing please administer upon arrival and once administered post a bridge message 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, 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, 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, and lot# so we can update [facility] 02/18/20 22 022 Inactive dispense with needle polyethylene glycol 3350 17 gram/dose oral powder RxNorm: 184287 Take 17=1 capful Gram(s) Oral QD mix with 4-8oz of liquid 01/08/20 22 023 Inactive take this in addition to BID prn order Lyrica 100 mg capsule RxNorm: 596731 Take 1 Capsule(s) Oral QAM every morning 01/08/20 22 022 Inactive d/c 50mg dose acetaminophen 500 mg tablet RxNorm: 299549 Take 1 Tablet(s) Oral TID 01/08/20 22 022 Inactive d/c PRN order Lyrica 150 mg capsule RxNorm: 154876 Take 1 Capsule(s) Oral QHS every night at bedtime 01/08/20 22 023 Inactive d/c 100mg dose Abilify 5 mg tablet RxNorm: 651289 Take 1 Tablet(s) Oral QD take 1 tab po QD #30 refill 5 dx: MDD 12/12/19 22 022 Inactive Abilify 5 mg tablet RxNorm: 479555 Take 1 Tablet(s) Oral QD take 1 tab po QD #30 refill 5 dx: MDD 12/12/19 22 022 Inactive Novolog Flexpen U-100 Insulin aspart 100 unit/mL (3 mL) subcutaneous RxNorm: 5708729 Inject 42 Unit(s) Subcutaneous TID in addition to sliding scale 12/10/19 22 022 Inactive d/c 36u chlorthalidone 25 mg tablet RxNorm: 221917 Take 1 Tablet(s) Oral QAM every morning 12/10/19 22 023 Inactive pregabalin 50 mg capsule RxNorm: 829784 Take 1 Capsule(s) Oral QAM every morning 11/12/19 22 022 Inactive tetanus-diphtheria toxoids-Td 2 Lf unit-2 Lf unit/0.5 mL IM suspension RxNorm: 139 Take 0.5 Miscellaneous Intramuscular 11/12/19 22 022 Inactive need tdap - nursing to administer upon arrival pregabalin 50 mg capsule RxNorm: 951059 Take 1 Capsule(s) Oral QAM every morning 10/16/19 22 022 Inactive pregabalin 50 mg capsule RxNorm: 505676 Take 1 Capsule(s) Oral QAM every morning 10/16/19 22 022 Inactive pregabalin 50 mg capsule RxNorm: 665393 1 Capsule(s) Oral QAM every morning 10/15/19 22 022 Inactive Shingrix (PF) 50 mcg/0.5 mL intramuscular suspension, kit RxNorm: 0772313 Administer 1/2 Milliliter(s) Intramuscular one time Nursing please administer upon arrival and once administered post a bridge message 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 10/09/19 22 022 Inactive shingrix step 1 cholecalciferol (vitamin D3) 1,250 mcg (50,000 unit) capsule RxNorm: 497837 Take 1 Capsule(s) Oral QW once a [...] aspart 100 unit/mL (3 mL) subcutaneous RxNorm: 3718883 Inject 10 Unit(s) Subcutaneous QHS every night at bedtime with nighttime snack 10/08/19 22 Inactive Shingrix (PF) 50 mcg/0.5 mL intramuscular suspension, kit RxNorm: 5699249 ADMINISTER 2-DOSE SERIES PER CDC GUIDELINES 10/08/19 22 Active Shingrix (PF) 50 mcg/0.5 mL intramuscular suspension, kit RxNorm: 0628083 ADMINISTER 2-DOSE SERIES PER CDC GUIDELINES 10/08/19 Inactive Novolog Flexpen U-100 Insulin aspart 100 unit/mL (3 mL) subcutaneous RxNorm: 9001352 Inject 36 Unit(s) Subcutaneous TID in addition to sliding scale 10/08/19 Inactive Novofine Autocover 30 gauge x 1/3 needle RxNorm: Use 1 Miscellaneous UD as directed Use 1 needle as directed to administer insulin 5 times a day Dx:E11.42. 10/03/19 Inactive ok to substitute with any covered alternative pen needle benzoyl peroxide 10 % topical cleanser RxNorm: 438332 Apply 1 Application Topical QD apply to face, wash rinse and dry once daily (may change to QOD if drying) 08/19/19 022 Inactive (%covered by insurance) #60ml refill 11 dx: acne benzoyl peroxide 10 % topical cleanser RxNorm: 757990 Apply 1 Application Topical QD apply to face, wash rinse and dry once daily (may change to QOD if drying) 08/19/19 22 022 Inactive (%covered by insurance) #60ml refill 11 dx: acne benzoyl peroxide 10 % topical cleanser RxNorm: 186693 Apply 1 Application Topical QD apply to face, wash rinse and dry once daily (may change to QOD if drying) 08/19/19 22 022 Inactive (%covered by insurance) #60ml refill 11 dx: acne Lyrica 50 mg capsule RxNorm: 781886 Take 1 Capsule(s) Oral QAM every morning Take 1 capsule by mouth once daily 08/19/19 22 022 Inactive benzoyl peroxide 10 % topical cleanser RxNorm: 086523 Apply 1 Application Topical QD apply to face, wash rinse and dry once daily (may change to QOD if drying) 08/19/19 22 Inactive (%covered by insurance) #60ml refill 11 dx: acne Lyrica 100 mg capsule RxNorm: 021326 Take 1 Capsule(s) Oral QHS every night at bedtime Take 1 capsule by mouth once daily at bedtime 08/19/19 022 Inactive Lyrica 100 mg capsule RxNorm: 787007 Take 1 Capsule(s) Oral QHS every night at bedtime Take 1 capsule by mouth once daily at bedtime 08/16/19 22 Inactive Lyrica 50 mg capsule RxNorm: 436132 Take 1 Capsule(s) Oral QAM every morning Take 1 capsule by mouth once daily 08/16/19 22 Inactive Levemir FlexTouch U-100 Insulin 100 unit/mL (3 mL) subcutaneous pen RxNorm: 497656 Inject 86 Unit(s) Subcutaneous BID 08/05/19 22 022 Inactive d/c 83units BID Lyrica 100 mg capsule RxNorm: 102215 Take 1 Capsule(s) Oral QHS every night at bedtime Take 1 capsule by mouth once daily at bedtime 07/14/19 22 022 Inactive Lyrica 50 mg capsule RxNorm: 443072 Take 1 Capsule(s) Oral QAM every morning Take 1 capsule by mouth once daily 07/14/19 22 022 Inactive Levemir FlexTouch U-100 Insulin 100 unit/mL (3 mL) subcutaneous pen RxNorm: 280166 Inject 83 Unit(s) Subcutaneous BID 07/08/19 22 [...] test strip hydralazine 50 mg tablet RxNorm: 936713 Take 1 Tablet(s) Oral QID 05/05/20 21 022 Inactive venlafaxine ER 225 mg tablet,extended release 24 hr RxNorm: 173003 Take 1 Tablet(s) Oral QD 05/05/20 21 021 Inactive venlafaxine ER 225 mg tablet,extended release 24 hr RxNorm: 804318 Take 1 Tablet(s) Oral QD 05/05/20 21 022 Inactive isosorbide mononitrate ER 30 mg tablet,extended release 24 hr RxNorm: 576919 Take 1 Tablet(s) Oral QD 05/05/20 21 024 Inactive hydralazine 50 mg tablet RxNorm: 765265 Take 1 Tablet(s) Oral QID 05/05/20 21 021 Inactive aspirin 81 mg tablet,delayed release RxNorm: 929088 Take 1 Tablet(s) Oral QD 03/31/20 022 Inactive Vitamin D2 1,250 mcg (50,000 unit) capsule RxNorm: 1760209 Take 1 Capsule(s) Oral QW once a week x 12 weeks 03/31/20 022 Inactive Vitamin D2 1,250 mcg (50,000 unit) capsule RxNorm: 9647871 Take 1 Capsule(s) Oral QW once a week 03/31/20 021 Inactive Zetia 10 mg tablet RxNorm: 509452 Take 1 Tablet(s) Oral QD 03/31/20 024 Inactive Zetia 10 mg tablet RxNorm: 746514 Take 1 Tablet(s) Oral QD 03/31/20 021 Inactive hydralazine 25 mg tablet RxNorm: 869779 Take 1 Tablet(s) Oral QID 03/31/20 21 021 Inactive hydralazine 25 mg tablet RxNorm: 809297 Take 1 Tablet(s) Oral QID 03/31/20 021 Inactive hydralazine 10 mg tablet RxNorm: 676638 Take 1 Tablet(s) Oral QID 03/03/20 021 Inactive cephalexin 500 mg tablet RxNorm: 495420 Take 1 Tablet(s) Oral QID 02/27/20 021 Inactive cephalexin 500 mg tablet RxNorm: 417690 Take 1 Tablet(s) Oral QID 02/27/20 021 Inactive lisinopril 40 mg tablet RxNorm: 174816 Take 1 Tablet(s) Oral QD 02/11/20 21 023 Inactive Eliquis 5 mg tablet RxNorm: 1426480 Take 1 Tablet(s) Oral BID 01/05/20 21 022 Inactive Eliquis 5 mg tablet RxNorm: 9792787 Take 2 Tablet(s) Oral QD 01/01/20 21 021 Inactive Lyrica 50 mg capsule RxNorm: 438468 Take 1 Capsule(s) Oral QAM every morning 12/24/19 21 021 Inactive Lyrica 100 mg capsule RxNorm: 512699 Take 1 Capsule(s) Oral QHS every night at bedtime 12/24/19 21 021 Inactive clotrimazole 1 % topical cream RxNorm: 436459 Apply to right foot and toes Topical BID 12/04/19 21 023 Inactive metoprolol succinate ER 200 mg tablet,extended release 24 hr RxNorm: 518236 Take 1 Tablet(s) Oral QD 12/04/19 21 023 Inactive ciprofloxacin 500 mg tablet RxNorm: 737212 Take 1 Tablet(s) Oral QD 11/30/19 21 021 Inactive DX ofloxacin otic drops Accu-Chek Guide test strips RxNorm: USE 1 TO CHECK GLUCOSE 4 TIMES DAILY AND NEEDED 11/15/19 21 023 Inactive Blood Glucose Test strips RxNorm: Use 1 Test Strip QID at PRN 11/05/19 21 023 Inactive E11.42 lisinopril 30 mg tablet RxNorm: 034360 Take 1 Tablet(s) Oral QD 10/30/19 021 Inactive lisinopril 20 mg tablet RxNorm: 796345 Take 1 Tablet(s) Oral QD 10/23/19 21 021 Inactive lisinopril 20 mg tablet RxNorm: 183978 Take 1 Tablet(s) Oral QD 10/23/19 21 021 Inactive lisinopril 10 mg tablet RxNorm: 625067 Take 1 Tablet(s) Oral QD 10/02/19 21 021 Inactive icosapent ethyl 1 gram capsule RxNorm: 5274459 Take 2 Capsule(s) (2 gm) Oral BID with meals 09/12/19 21 024 Inactive Okay to dispense one 2gm tab if you have that available. icosapent ethyl 1 gram capsule RxNorm: 8589206 Take 2 Capsule(s) Oral BID 09/12/19 21 021 Inactive Okay to dispense one 2gm tab if you have that available. amlodipine 10 mg tablet RxNorm: 383936 Take 1 Tablet(s) Oral QD 09/04/19 022 Inactive aspirin 81 mg tablet,delayed release RxNorm: 820146 Take 1 Tablet(s) Oral QD 09/04/19 Inactive Levemir FlexTouch U-100 Insulin 100 unit/mL (3 mL) subcutaneous pen RxNorm: 024511 Inject 150 Unit(s) Subcutaneous BID 09/04/19 022 Inactive venlafaxine ER 150 mg tablet,extended release 24 hr RxNorm: 477429 Take 1 Tablet(s) Oral QD 09/04/19 21 Inactive clotrimazole-betame thasone 1 %-0.05 % topical cream RxNorm: 393753 Apply to rash on red area on left abdomen/chest Topical BID 08/10/19 Inactive amlodipine 5 mg tablet RxNorm: 016446 Take 1 Tablet(s) Oral QD 07/31/19 Inactive cephalexin 500 mg tablet RxNorm: 658604 Take 1 Tablet(s) Oral BID BID - Twice Daily 07/31/19 Inactive Start 08/01/20 pantoprazole 40 mg tablet,delayed release RxNorm: 145476 Take 1 Tablet(s) Oral QAM every morning 07/08/19 022 Inactive senna 8.6 mg tablet RxNorm: 056190 Take 1 Tablet(s) Oral QD 07/08/19 022 Inactive carbamazepine 200 mg tablet RxNorm: 155472 Take 1 Tablet(s) Oral BID 07/08/19 022 Inactive clopidogrel 75 mg tablet RxNorm: 639913 Take 1 Tablet(s) Oral QD 07/08/19 021 Inactive Blood Glucose Test strips RxNorm: Use 1 Test Strip QID at PRN 07/08/19 21 021 Inactive E11.42 Novolog Flexpen U-100 Insulin aspart 100 unit/mL (3 mL) subcutaneous RxNorm: 8754796 Administer per sliding scale Milliliter(s) Subcutaneous TID 151-200: 10 u; 201-250: 20 u; 251-300: 30 u; 301-350: 40 u; 351-400: 50 u. 07/08/19 022 Inactive lisinopril 5 mg tablet RxNorm: 509694 Take 1 Tablet(s) Oral QD 07/08/19 021 Inactive Novolog Flexpen U-100 Insulin aspart 100 unit/mL (3 mL) subcutaneous RxNorm: 7217120 Inject 85 Unit(s) Subcutaneous TID 07/08/19 022 Inactive pravastatin 80 mg tablet RxNorm: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
--- OUTSIDE RECORDS SUMMARY | 2023-11-03 11:28 | XMS_ITS | CCD ---
Author Name Cecilio Durham feliberto Address [address] 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 Name Role Phone Arpit MARCYKeeganHarrison Primary Care Provider Leona vailable Harrison [facility] U navailable Summary Purpose DataExchange Insurance Providers Payer name Policy type / Coverage type Covered alliance party ID Effective Begin Date Effective End Date Medicare [place] Medicare Part B [id number] Unknown Unknown Medicaid [place] Medicare Part B [id number] Unknown Unknown Family history Sister Brittany Suggs [...] Unknown Snf 09/03/[address]: 5998561 Non-Smoker / No History of Smoking 09/02/[address]: 696028059 No Alcohol Consum ption 09/02/2020 Allergies, Adverse Reactions, Alerts Substance Reaction Codes Entered Date Inactivated Date Status * NO KNOWN FOOD ALLERGIES Unknown 07/13/2023 No Inactive Date Active LISINOPRIL RxNorm: 75071 02/12/2020 No Inactive Da te Active Metformin [...] E78. 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 Other senior care (current) dr ug therapy ICD-10: Z79.899 [...] 08/10/2023 Active Coronary artery disease invo lving [place] coronary artery of [place] heart, angina presence unspecified ICD-10: I25.10 ICD-9: [...] Fill Instructions torsemide 20 mg tablet RxNorm: 242091 Take 1 Tablet(s) Oral QD 10/26/19 24 [...] %-0.3 % drops in a dropperette RxNorm: 032581 Apply 1-2 Drop(s) Both eyes BID as needed 09/28/19 24 Active erythromycin 5 mg/gram (0.5 %) eye ointment RxNorm: 414708 Apply 1 Application Both eyes QHS every night at bedtime Instill ~1 cm ribbon into affected eye 09/28/19 24 024 Inactive Artificial Tears (PF) 0.1 %-0.3 % drops in a dropperette RxNorm: 256629 Apply 1-2 Drop(s) Both eyes BID as needed 09/28/19 24 Inactive erythromycin 5 mg/gram (0.5 %) eye ointment RxNorm: 024614 Apply 1 Application Both eyes QHS every night at bedtime Instill ~1 cm ribbon into affected eye 09/28/19 24 Inactive acetaminophen 500 mg tablet RxNorm: 124357 (MAX APAP:4GM/24HR) Take 1 Tablet(s) Oral TID as needed for pain 09/24/19 24 024 Inactive carvedilol 25 mg tablet RxNorm: 396078 Take 1 Tablet(s) Oral QD 09/08/19 24 No Stop Date Active pregabalin 100 mg capsule RxNorm: 804272 Take 1 Capsule(s) Oral QAM every morning 09/07/19 24 024 Active rosuvastatin 40 mg tablet RxNorm: 798190 Take 1 Tablet(s) Oral QPM every evening 07/13/19 24 No Stop Date Active ezetimibe 10 mg tablet RxNorm: 023615 Take 1 Tablet(s) Oral QD 07/13/19 24 No Stop Date Active bisacodyl 10 mg rectal suppository RxNorm: 114192 Insert 1 Suppository Rectal QD as needed 07/13/19 24 No Stop Date Active polyethylene glycol 3350 17 gram/dose oral powder RxNorm: 254144 Take 17 Gram(s) Oral BID as needed mix in 4-8ox water 07/13/19 24 No Stop Date Active ketoconazole 2 % shampoo RxNorm: 906486 Apply 1 Application Topical UD as directed 07/13/19 24 No Stop Date Active aripiprazole 15 mg tablet RxNorm: 321498 Take 1/2 Tablet(s) Oral QD 07/13/19 24 No Stop Date Active Ozempic 1 mg/dose (4 mg/3 mL) subcutaneous pen injector RxNorm: 3684115 Inject 1 Milligram(s) Subcutaneous QW once a week 07/13/19 24 No Stop Date Active Guaifenesin AC 10 mg-100 mg/5 mL oral liquid RxNorm: 414023 Take 10 Milliliter(s) Oral Q4H every four hours as needed 07/13/19 24 No Stop Date Active isosorbide mononitrate ER 60 mg tablet,extended release 24 hr RxNorm: 289421 Take 1 Tablet(s) Oral QD 07/13/19 24 No Stop Date Active ammonium lactate 12 % topical cream RxNorm: 243437 Apply 1 Application Topical BID 07/13/19 24 No Stop Date Active hydrocortisone 2.5 % topical cream RxNorm: 104944 Apply 1 Application Topical BID as needed 07/13/19 24 No Stop Date Active rosuvastatin 20 mg sprinkle capsule RxNorm: 5593959 Take 1 Capsule(s) Oral QD 07/13/19 24 No Stop Date Active Vascepa 1 gram capsule RxNorm: 0605708 Take 2 Capsule(s) Oral BID 07/13/19 24 No Stop Date Active venlafaxine ER 75 mg capsule,extended release 24 hr RxNorm: 670247 Take 3 Capsule(s) Oral QD 07/13/19 24 No Stop Date Active Basaglar KwikPen U-100 Insulin 100 unit/mL (3 mL) subcutaneous RxNorm: 0460980 Inject 30U SubQ twice daily 07/07/19 24 025 Active Please dispense one month supply. Basaglar KwikPen U-100 Insulin 100 unit/mL (3 mL) subcutaneous RxNorm: 2930718 Inject 30U SubQ twice daily 07/07/19 24 024 Inactive Please dispense one month supply. pregabalin 150 mg capsule RxNorm: 670014 Take 1 Capsule(s) Oral QHS every night at bedtime 07/05/19 24 024 Active pregabalin 150 mg capsule RxNorm: 695314 Take 1 Capsule(s) Oral QHS every night at bedtime 07/05/19 24 024 Inactive polyethylene glycol 3350 17 gram/dose oral powder RxNorm: 124609 Take 1 Packet Oral QD as needed (1 packet = 17g) mix with 4-8oz of liquid 06/15/19 24 024 Inactive bisacodyl 10 mg rectal suppository RxNorm: 496080 Insert one suppository per rectum once daily as needed for constipation 06/15/19 24 024 Inactive bisacodyl 10 mg rectal suppository RxNorm: 419241 Insert one suppository per rectum once daily as needed for constipation 06/15/19 24 024 Inactive pregabalin 100 mg capsule RxNorm: 708280 Take 1 Capsule(s) Oral QAM every morning 04/27/20 23 024 Inactive Levemir FlexPen 100 unit/mL (3 mL) solution subcutaneous insulin pen RxNorm: 918894 Inject 30 Unit(s) Subcutaneous BID 04/27/20 23 024 Inactive rosuvastatin 40 mg tablet RxNorm: 162997 Take 1 Tablet(s) Oral QPM every evening 04/16/20 23 024 Inactive D/C rosuvastatin 20mg venlafaxine ER 75 mg capsule,extended release 24 hr RxNorm: 879959 Take 3 Capsule(s) Oral QD 04/14/20 23 023 Inactive pregabalin 100 mg capsule RxNorm: 919447 Take 1 Capsule(s) Oral QAM every morning [...] meter clotrimazole 1 % topical cream RxNorm: 836214 Take apply topically to abdominal folds twice daily for 14 days 03/12/20 024 Inactive Ozempic 1 mg/dose (4 mg/3 mL) subcutaneous pen injector RxNorm: 7055778 Inject 1 Milligram(s) Subcutaneous QW once a week 03/11/20 23 023 Inactive rosuvastatin 20 mg tablet RxNorm: 092342 Take 1 Tablet(s) Oral QD 02/26/20 023 Inactive d/c pravastatin 80mg Ozempic 1 mg/dose (4 mg/3 mL) subcutaneous pen injector RxNorm: 7731614 Inject 1 Milligram(s) Subcutaneous QW once a week 02/20/20 23 023 Inactive pregabalin 150 mg capsule RxNorm: 062075 Take 1 Capsule(s) Oral HS at bed time 02/19/20 23 023 Inactive pregabalin 100 mg capsule RxNorm: 798194 Take 1 Capsule(s) Oral QAM every morning 02/18/20 23 023 Inactive venlafaxine ER 75 mg capsule,extended release 24 hr RxNorm: 119154 Take 3 Capsule(s) Oral QD 02/04/20 23 023 Inactive FreeStyle Chema 2 Sensor kit RxNorm: use as directed 02/04/20 23 023 Inactive FreeStyle Chema 2 Sensor kit RxNorm: use as directed 02/04/20 23 024 Inactive fluconazole 150 mg tablet RxNorm: 658097 Take 1 Tablet(s) Oral on day 3 and on day 6 02/03/20 23 024 Active chlorthalidone 25 mg tablet RxNorm: 990973 Take 1 Tablet(s) Oral QAM every morning 02/03/20 No Stop Date Active venlafaxine ER 150 mg capsule,extended release 24 hr RxNorm: 414487 Take 1 Capsule(s) Oral QD 02/03/20 23 023 Inactive acetaminophen 500 mg tablet RxNorm: 868004 1 TABLET ORALLY 3 TIMES DAILY (MAX APAP:4GM/24HR) 12/15/19 23 023 Inactive clotrimazole 1 % topical cream RxNorm: 398660 apply 1g topically to top of feet and in between toes BID 12/09/19 23 023 Inactive potassium chloride ER 20 mEq tablet,extended release RxNorm: 732899 Take 1 Tablet(s) Oral BID 12/09/19 23 024 Inactive d/c 20mEq once daily (sent from hospital) nystatin 100,000 unit/gram topical powder RxNorm: 873967 APPLY TO AFFECTED AREAS TOPICALLY 2 TIMES DAILY 11/21/19 23 024 Inactive Nystop 100,000 unit/gram topical powder RxNorm: 420912 Apply to abd folds, under breasts and L side of groin Topical BID x 14 days, then BID PRN 11/20/19 23 023 Inactive dx: yeast dermatitis [place] Ultra Strength 4 %-30 %-10 % topical cream RxNorm: 777542 Apply 1 Gram(s) Topical QID PRN to feet and legs for neuropathic pain 11/11/19 23 024 Active clotrimazole 1 % topical cream RxNorm: 451952 Apply 1/2 Gram(s) Topical BID Apply to affected areas of groin, periarea, and abdominal topically 2 times daily 11/10/19 23 023 Inactive hydrocortisone 2.5 % topical cream RxNorm: 627980 Apply 1/2 Gram(s) Topical BID as needed 11/10/19 024 Inactive Humulin R U-500 (Concentrated) Insulin 500 unit/mL subcutaneous soln RxNorm: 211801 Inject 100 Unit(s) Subcutaneous TID 10/07/19 024 Inactive Levemir FlexPen 100 unit/mL (3 mL) solution subcutaneous insulin pen RxNorm: 050253 Inject 30 Unit(s) Subcutaneous BID 10/07/19 023 Inactive Ozempic 0.25 mg or 0.5 mg (2 mg/3 mL) subcutaneous pen injector RxNorm: 6539310 Inject 1/2 Milligram(s) Subcutaneous QW once a week 10/07/19 024 Inactive aripiprazole 15 mg tablet RxNorm: 301894 1/2 TAB (7.5MG) ORALLY DAILY (DX:MAJOR DEPRESSIVE DISORDER) 09/23/19 023 Inactive Lancets,Thin 28 gauge RxNorm: Use 1 as directed QID 09/15/19 23 024 Inactive Accu-Chek Guide test strips RxNorm: Use 1 Test Strip QID 09/15/19 023 Inactive ok to substitute with any covered alternative test strip torsemide 20 mg tablet RxNorm: 527128 Take 1 Tablet(s) Oral BID 09/09/19 024 Inactive d/c once daily dosing carvedilol 25 mg tablet RxNorm: 866935 Take 1 Tablet(s) Oral QD 08/25/19 024 Inactive pregabalin 150 mg capsule RxNorm: 727174 1 Capsule(s) Oral HS at bed time 08/18/19 023 Inactive pregabalin 100 mg capsule RxNorm: 169021 1 Capsule(s) Oral QAM every morning 08/18/19 023 Inactive carvedilol 25 mg tablet RxNorm: 689509 1 Tablet(s) Oral QD 07/28/19 023 Inactive lisinopril 20 mg tablet RxNorm: 646703 Give 1 Tablet(s) Oral QD 07/28/19 023 Inactive Lyrica 150 mg capsule RxNorm: 907543 Take 1 Capsule(s) Oral QHS every night at bedtime 07/19/19 23 023 Inactive d/c 100mg dose Diflucan 150 mg tablet RxNorm: 819504 Take 1 Tablet(s) Oral QD repeat on day 3 and 6 07/19/19 23 023 Inactive pregabalin 100 mg capsule RxNorm: 422758 Take 1 Capsule(s) Oral QAM every morning 07/19/19 23 023 Inactive gatifloxacin 0.5 % eye drops RxNorm: 146441 Instill 1 Drop(s) as directed TID Instill 1 drop in to affected eye(s) starting 1 day prior to surgery and continue until gone (do not exceed 4 weeks). 07/13/19 23 023 Inactive carvedilol 25 mg tablet RxNorm: 494555 2 Tablet(s) Oral BID 07/13/19 23 023 Inactive Humulin R Regular U-100 Insulin 100 unit/mL injection solution RxNorm: 831268 85 Unit(s) Injection TID 07/13/19 23 023 Inactive ketorolac 0.5 % eye drops RxNorm: 615053 Instill 1 Drop(s) as directed QID Instill 1 drop into affected eye(s) 4 times daily starting 1 day prior to surgery and continue until gone (do not exceed 4 weeks). 07/13/19 023 Inactive Diflucan 150 mg tablet RxNorm: 011073 Take 1 Tablet(s) Oral QD repeat on day 3 and 6 06/30/19 23 023 Inactive Accu-Chek Guide test strips RxNorm: Use 1 Test Strip QID Use 1 test strip to monitor blood glucose 4 times daily and as needed. Dx:E11.42. 06/23/19 23 023 Inactive ok to substitute with any covered alternative test strip dextromethorphan-gu aifenesin 10 mg-100 mg/5 mL oral liquid RxNorm: 788245 Take 10 Milliliter(s) Oral every 4 hours as needed for cough 06/19/19 23 023 Inactive dextromethorphan-gu aifenesin 10 mg-100 mg/5 mL oral liquid RxNorm: 978875 Take 10 Milliliter(s) Oral every 4 hours as needed for cough 06/19/19 023 Inactive Lyrica 150 mg capsule RxNorm: 994384 Take 1 Capsule(s) Oral QHS every night at bedtime 06/18/19 023 Inactive d/c 100mg dose aripiprazole 15 mg tablet RxNorm: 153520 1/2 TAB (7.5MG) ORALLY DAILY (DX:MAJOR DEPRESSIVE DISORDER) 06/05/19 023 Inactive pregabalin 100 mg capsule RxNorm: 789953 1 Capsule(s) Oral QAM every morning 06/02/19 023 Inactive Banophen 50 mg capsule RxNorm: 2307908 Take 1 Capsule(s) Oral Q6H every 6 hours as needed 05/19/19 No Stop Date Active Novolog Flexpen U-100 Insulin aspart 100 unit/mL (3 mL) subcutaneous RxNorm: 5102469 Inject 10 Unit(s) Subcutaneous QHS every night at bedtime with nighttime snack 04/08/20 022 Inactive Novolog Flexpen U-100 Insulin aspart 100 unit/mL (3 mL) subcutaneous RxNorm: 7457808 Inject 42 Unit(s) Subcutaneous TID in addition to sliding scale 04/08/20 022 Inactive d/c 36u albuterol sulfate HFA 90 mcg/actuation aerosol inhaler RxNorm: 7528843 Take 2 Puff(s) Inhalation Q4H every four hours as needed as needed for SOB, cough, or wheezing 04/07/20 030 Active Banophen 50 mg capsule RxNorm: 1561592 Take 1 Capsule(s) Oral Q6H every 6 hours as needed 04/06/20 023 Inactive diphenhydramine 50 mg tablet RxNorm: 8503996 Take 1 Tablet(s) Oral Q6H every 6 hours as needed 04/06/20 022 Inactive diphenhydramine 50 mg tablet RxNorm: 2190176 1 Tablet(s) Oral Q6H every 6 hours as needed 04/06/20 22 022 Inactive Abilify 15 mg tablet RxNorm: 970748 1/2 Tablet(s) Oral QD 03/10/20 22 023 Inactive Shingrix (PF) 50 mcg/0.5 mL intramuscular suspension, kit RxNorm: 0494202 Administer 1/2 Milliliter(s) Intramuscular QD one time shingrix step 2 ( step 1 given 11/04/21) WITH needle - Nursing please administer upon arrival and once administered post a bridge message with date of administration, reporting lead, expiration date, and lot# so we can update [facility] 02/18/20 22 022 Inactive dispense with needle Shingrix (PF) 50 mcg/0.5 mL intramuscular suspension, kit RxNorm: 7805827 Administer 1/2 Milliliter(s) Intramuscular QD one time shingrix step 2 ( step 1 given 11/04/21) WITH needle - Nursing please administer upon arrival and once administered post a bridge message with date of administration, reporting lead, expiration date, and lot# so we can update [facility] 02/18/20 22 022 Inactive dispense with needle polyethylene glycol 3350 17 gram/dose oral powder RxNorm: 369204 Take 17=1 capful Gram(s) Oral QD mix with 4-8oz of liquid 01/08/20 22 023 Inactive take this in addition to BID prn order Lyrica 100 mg capsule RxNorm: 244473 Take 1 Capsule(s) Oral QAM every morning 01/08/20 22 022 Inactive d/c 50mg dose acetaminophen 500 mg tablet RxNorm: 678888 Take 1 Tablet(s) Oral TID 01/08/20 22 022 Inactive d/c PRN order Lyrica 150 mg capsule RxNorm: 629852 Take 1 Capsule(s) Oral QHS every night at bedtime 01/08/20 22 023 Inactive d/c 100mg dose Abilify 5 mg tablet RxNorm: 582756 Take 1 Tablet(s) Oral QD take 1 tab po QD #30 refill 5 dx: MDD 12/12/19 22 022 Inactive Abilify 5 mg tablet RxNorm: 021239 Take 1 Tablet(s) Oral QD take 1 tab po QD #30 refill 5 dx: MDD 12/12/19 22 022 Inactive Novolog Flexpen U-100 Insulin aspart 100 unit/mL (3 mL) subcutaneous RxNorm: 4090613 Inject 42 Unit(s) Subcutaneous TID in addition to sliding scale 12/10/19 22 Inactive d/c 36u chlorthalidone 25 mg tablet RxNorm: 535319 Take 1 Tablet(s) Oral QAM every morning 12/10/19 22 023 Inactive pregabalin 50 mg capsule RxNorm: 978109 Take 1 Capsule(s) Oral QAM every morning 11/12/19 22 022 Inactive tetanus-diphtheria toxoids-Td 2 Lf unit-2 Lf unit/0.5 mL IM suspension RxNorm: 139 Take 0.5 Miscellaneous Intramuscular 11/12/19 022 Inactive need tdap - nursing to administer upon arrival pregabalin 50 mg capsule RxNorm: 018213 Take 1 Capsule(s) Oral QAM every morning 10/16/19 022 Inactive pregabalin 50 mg capsule RxNorm: 269060 Take 1 Capsule(s) Oral QAM every morning 10/16/19 22 022 Inactive pregabalin 50 mg capsule RxNorm: 471062 1 Capsule(s) Oral QAM every morning 10/15/19 22 022 Inactive Shingrix (PF) 50 mcg/0.5 mL intramuscular suspension, kit RxNorm: 2326912 Administer 1/2 Milliliter(s) Intramuscular one time Nursing please administer upon arrival and once administered post a bridge message with date of administration, reporting lead, expiration date, and lot# so we can update [facility]. 10/09/19 22 022 Inactive shingrix step 1 Shingrix (PF) 50 mcg/0.5 mL intramuscular suspension, kit RxNorm: 1201942 Administer 1/2 Milliliter(s) Intramuscular one time Nursing please administer upon arrival and once administered post a bridge message with date of administration, reporting lead, expiration date, and lot# so we can update [facility]. 10/09/19 22 022 Inactive shingrix step 1 cholecalciferol (vitamin D3) 1,250 mcg (50,000 unit) capsule RxNorm: 505424 Take 1 Capsule(s) Oral QW once a [...] aspart 100 unit/mL (3 mL) subcutaneous RxNorm: 7619448 Inject 10 Unit(s) Subcutaneous QHS every night at bedtime with nighttime snack 10/08/19 22 Inactive Shingrix (PF) 50 mcg/0.5 mL intramuscular suspension, kit RxNorm: 2717493 ADMINISTER 2-DOSE SERIES PER CDC GUIDELINES 10/08/19 22 Active Shingrix (PF) 50 mcg/0.5 mL intramuscular suspension, kit RxNorm: 3447025 ADMINISTER 2-DOSE SERIES PER CDC GUIDELINES 10/08/19 22 Inactive Novolog Flexpen U-100 Insulin aspart 100 unit/mL (3 mL) subcutaneous RxNorm: 5143628 Inject 36 Unit(s) Subcutaneous TID in addition to sliding scale 10/08/19 22 Inactive Novofine Autocover 30 gauge x 1/3 needle RxNorm: Use 1 Miscellaneous UD as directed Use 1 needle as directed to administer insulin 5 times a day Dx:E11.42. 10/03/19 22 Inactive ok to substitute with any covered alternative pen needle benzoyl peroxide 10 % topical cleanser RxNorm: 070634 Apply 1 Application Topical QD apply to face, wash rinse and dry once daily (may change to QOD if drying) 08/19/19 22 Inactive (%covered by insurance) #60ml refill 11 dx: acne benzoyl peroxide 10 % topical cleanser RxNorm: 619831 Apply 1 Application Topical QD apply to face, wash rinse and dry once daily (may change to QOD if drying) 08/19/19 22 022 Inactive (%covered by insurance) #60ml refill 11 dx: acne benzoyl peroxide 10 % topical cleanser RxNorm: 973563 Apply 1 Application Topical QD apply to face, wash rinse and dry once daily (may change to QOD if drying) 08/19/19 22 022 Inactive (%covered by insurance) #60ml refill 11 dx: acne Lyrica 50 mg capsule RxNorm: 879185 Take 1 Capsule(s) Oral QAM every morning Take 1 capsule by mouth once daily 08/19/19 022 Inactive benzoyl peroxide 10 % topical cleanser RxNorm: 868863 Apply 1 Application Topical QD apply to face, wash rinse and dry once daily (may change to QOD if drying) 08/19/19 22 022 Inactive (%covered by insurance) #60ml refill 11 dx: acne Lyrica 100 mg capsule RxNorm: 981453 Take 1 Capsule(s) Oral QHS every night at bedtime Take 1 capsule by mouth once daily at bedtime 08/19/19 022 Inactive Lyrica 100 mg capsule RxNorm: 018920 Take 1 Capsule(s) Oral QHS every night at bedtime Take 1 capsule by mouth once daily at bedtime 08/16/19 Inactive Lyrica 50 mg capsule RxNorm: 704152 Take 1 Capsule(s) Oral QAM every morning Take 1 capsule by mouth once daily 08/16/19 Inactive Levemir FlexTouch U-100 Insulin 100 unit/mL (3 mL) subcutaneous pen RxNorm: 419675 Inject 86 Unit(s) Subcutaneous BID 08/05/19 22 Inactive d/c 83units BID Lyrica 100 mg capsule RxNorm: 019811 Take 1 Capsule(s) Oral QHS every night at bedtime Take 1 capsule by mouth once daily at bedtime 07/14/19 22 022 Inactive Lyrica 50 mg capsule RxNorm: 532264 Take 1 Capsule(s) Oral QAM every morning Take 1 capsule by mouth once daily 07/14/19 Inactive Levemir FlexTouch U-100 Insulin 100 unit/mL (3 mL) subcutaneous pen RxNorm: 164816 Inject 83 Unit(s) Subcutaneous BID 07/08/19 22 [...] test strip hydralazine 50 mg tablet RxNorm: 064656 Take 1 Tablet(s) Oral QID 05/05/20 21 022 Inactive venlafaxine ER 225 mg tablet,extended release 24 hr RxNorm: 765662 Take 1 Tablet(s) Oral QD 05/05/20 21 021 Inactive venlafaxine ER 225 mg tablet,extended release 24 hr RxNorm: 739506 Take 1 Tablet(s) Oral QD 05/05/20 022 Inactive isosorbide mononitrate ER 30 mg tablet,extended release 24 hr RxNorm: 450458 Take 1 Tablet(s) Oral QD 05/05/20 024 Inactive hydralazine 50 mg tablet RxNorm: 212109 Take 1 Tablet(s) Oral QID 05/05/20 21 021 Inactive aspirin 81 mg tablet,delayed release RxNorm: 705271 Take 1 Tablet(s) Oral QD 03/31/20 022 Inactive Vitamin D2 1,250 mcg (50,000 unit) capsule RxNorm: 4966929 Take 1 Capsule(s) Oral QW once a week x 12 weeks 03/31/20 022 Inactive Vitamin D2 1,250 mcg (50,000 unit) capsule RxNorm: 5185500 Take 1 Capsule(s) Oral QW once a week 03/31/20 021 Inactive Zetia 10 mg tablet RxNorm: 170424 Take 1 Tablet(s) Oral QD 03/31/20 024 Inactive Zetia 10 mg tablet RxNorm: 201589 Take 1 Tablet(s) Oral QD 03/31/20 021 Inactive hydralazine 25 mg tablet RxNorm: 530077 Take 1 Tablet(s) Oral QID 03/31/20 021 Inactive hydralazine 25 mg tablet RxNorm: 238988 Take 1 Tablet(s) Oral QID 03/31/20 021 Inactive hydralazine 10 mg tablet RxNorm: 233096 Take 1 Tablet(s) Oral QID 03/03/20 21 021 Inactive cephalexin 500 mg tablet RxNorm: 447796 Take 1 Tablet(s) Oral QID 02/27/20 021 Inactive cephalexin 500 mg tablet RxNorm: 665482 Take 1 Tablet(s) Oral QID 02/27/20 021 Inactive lisinopril 40 mg tablet RxNorm: 654659 Take 1 Tablet(s) Oral QD 02/11/20 023 Inactive Eliquis 5 mg tablet RxNorm: 3274215 Take 1 Tablet(s) Oral BID 01/05/20 21 022 Inactive Eliquis 5 mg tablet RxNorm: 2065706 Take 2 Tablet(s) Oral QD 01/01/20 21 021 Inactive Lyrica 50 mg capsule RxNorm: 702432 Take 1 Capsule(s) Oral QAM every morning 12/24/19 021 Inactive Lyrica 100 mg capsule RxNorm: 515579 Take 1 Capsule(s) Oral QHS every night at bedtime 12/24/19 021 Inactive clotrimazole 1 % topical cream RxNorm: 226440 Apply to right foot and toes Topical BID 12/04/19 21 023 Inactive metoprolol succinate ER 200 mg tablet,extended release 24 hr RxNorm: 764505 Take 1 Tablet(s) Oral QD 12/04/19 023 Inactive ciprofloxacin 500 mg tablet RxNorm: 503058 Take 1 Tablet(s) Oral QD 11/30/19 021 Inactive DX ofloxacin otic drops Accu-Chek Guide test strips RxNorm: USE 1 TO CHECK GLUCOSE 4 TIMES DAILY AND NEEDED 11/15/19 023 Inactive Blood Glucose Test strips RxNorm: Use 1 Test Strip QID at PRN 11/05/19 21 023 Inactive E11.42 lisinopril 30 mg tablet RxNorm: 078408 Take 1 Tablet(s) Oral QD 10/30/19 021 Inactive lisinopril 20 mg tablet RxNorm: 961760 Take 1 Tablet(s) Oral QD 10/23/19 21 021 Inactive lisinopril 20 mg tablet RxNorm: 479048 Take 1 Tablet(s) Oral QD 10/23/19 21 021 Inactive lisinopril 10 mg tablet RxNorm: 617785 Take 1 Tablet(s) Oral QD 10/02/19 21 021 Inactive icosapent ethyl 1 gram capsule RxNorm: 5489376 Take 2 Capsule(s) (2 gm) Oral BID with meals 09/12/19 21 024 Inactive Okay to dispense one 2gm tab if you have that available. icosapent ethyl 1 gram capsule RxNorm: 5611858 Take 2 Capsule(s) Oral BID 09/12/19 21 021 Inactive Okay to dispense one 2gm tab if you have that available. amlodipine 10 mg tablet RxNorm: 559947 Take 1 Tablet(s) Oral QD 09/04/19 022 Inactive aspirin 81 mg tablet,delayed release RxNorm: 624413 Take 1 Tablet(s) Oral QD 09/04/19 21 021 Inactive Levemir FlexTouch U-100 Insulin 100 unit/mL (3 mL) subcutaneous pen RxNorm: 657550 Inject 150 Unit(s) Subcutaneous BID 09/04/19 022 Inactive venlafaxine ER 150 mg tablet,extended release 24 hr RxNorm: 596324 Take 1 Tablet(s) Oral QD 09/04/19 21 021 Inactive clotrimazole-betame thasone 1 %-0.05 % topical cream RxNorm: 860861 Apply to rash on red area on left abdomen/chest Topical BID 08/10/19 21 Inactive amlodipine 5 mg tablet RxNorm: 280879 Take 1 Tablet(s) Oral QD 07/31/19 21 021 Inactive cephalexin 500 mg tablet RxNorm: 805375 Take 1 Tablet(s) Oral BID BID - Twice Daily 07/31/19 21 021 Inactive Start 08/01/20 pantoprazole 40 mg tablet,delayed release RxNorm: 562919 Take 1 Tablet(s) Oral QAM every morning 07/08/19 022 Inactive senna 8.6 mg tablet RxNorm: 600983 Take 1 Tablet(s) Oral QD 07/08/19 21 022 Inactive carbamazepine 200 mg tablet RxNorm: 100210 Take 1 Tablet(s) Oral BID 07/08/19 022 Inactive clopidogrel 75 mg tablet RxNorm: 713108 Take 1 Tablet(s) Oral QD 07/08/19 021 Inactive Blood Glucose Test strips RxNorm: Use 1 Test Strip QID at PRN 07/08/19 21 Inactive E11.42 Novolog Flexpen U-100 Insulin aspart 100 unit/mL (3 mL) subcutaneous RxNorm: 3266467 Administer per sliding scale Milliliter(s) Subcutaneous TID 151-200: 10 u; 201-250: 20 u; 251-300: 30 u; 301-350: 40 u; 351-400: 50 u. 07/08/19 21 022 Inactive lisinopril 5 mg tablet RxNorm: 433610 Take 1 Tablet(s) Oral QD 07/08/19 021 Inactive Novolog Flexpen U-100 Insulin aspart 100 unit/mL (3 mL) subcutaneous RxNorm: 3209070 Inject 85 Unit(s) Subcutaneous TID 07/08/19 022 Inactive pravastatin 80 mg tablet RxNorm: 796004 Take 1 Tablet(s) Oral QHS every night at bedtime 07/08/19 023 Inactive clotrimazole 1 % topical cream RxNorm: 465347 Apply to bilateral groin areas Topical BID 07/08/19 022 Inactive metoprolol succinate ER 200 mg tablet,extended release 24 hr RxNorm: 313017 Take 1 Tablet(s) Oral QD 07/08/19 Inactive Vitamin D3 25 mcg (1,000 unit) tablet RxNorm: 135985 Take 1 Tablet(s) Oral QD 07/08/19 021 Inactive isosorbide dinitrate 30 mg tablet RxNorm: 983009 Take 1 Tablet(s) Oral QD 07/08/19 21 021 Inactive Levemir FlexTouch U-100 Insulin 100 unit/mL (3 mL) subcutaneous pen RxNorm: 389041 Inject 140 Unit(s) Subcutaneous BID 07/08/19 021 Inactive torsemide 20 mg tablet RxNorm: 344045 Take 1 Tablet(s) Oral QD 07/08/19 21 023 Inactive venlafaxine 75 mg tablet RxNorm: 728198 Take 1 Tablet(s) Oral QD 07/08/19 21 021 Inactive acetaminophen 500 mg tablet RxNorm: 117435 Take 1 Tablet(s) Oral TID as needed for headache 06/18/19 21 021 Inactive acetaminophen 500 mg tablet RxNorm: 713113 Take 1 Tablet(s) Oral TID as needed for headache 06/18/19 21 021 Inactive Lyrica 100 mg capsule RxNorm: 413084 Take 1 Capsule(s) Oral QHS every night at bedtime 06/11/19 21 021 Inactive Lyrica 50 mg capsule RxNorm: 258492 Take 1 Capsule(s) Oral QAM every morning 06/10/19 21 021 Inactive hydrocortisone 2.5 % topical cream RxNorm: 826296 Apply to bilateral groin creases Topical BID 05/15/20 20 021 Inactive clotrimazole 1 % topical cream RxNorm: 296715 Apply to bilateral groin areas Topical BID 05/15/20 20 021 Inactive Lyrica 50 mg capsule RxNorm: 147449 Take 1 Capsule(s) Oral QAM every morning 05/14/20 20 020 Inactive Lyrica 100 mg capsule RxNorm: 733743 Take 1 Capsule(s) Oral QHS every night [...] Inactive Nystop 100,000 unit/gram topical powder RxNorm: 923058 Apply to abd folds, under breasts and L side of groin Topical BID x 14 days, then BID PRN 04/08/20 20 Inactive dx: yeast dermatitis Lyrica 100 mg capsule RxNorm: 878923 Take 1 Capsule(s) Oral QHS every night at bedtime 03/13/20 20 Inactive Lyrica 50 mg capsule RxNorm: 118539 Take 1 Capsule(s) Oral QAM every morning 03/13/20 20 Inactive ketoconazole 2 % shampoo RxNorm: 190567 Apply Topical two times a week with showers 03/11/20 20 Inactive cholecalciferol (vitamin D3) 50 mcg (2,000 unit) tablet RxNorm: 854224 Take 1 Tablet(s) Oral QD 03/11/20 20 021 Inactive Zetia 10 mg tablet RxNorm: 472223 Take 1 Tablet(s) Oral QD 03/07/20 20 021 Inactive Zetia 10 mg tablet RxNorm: 141239 Take 1 Tablet(s) Oral QD 03/07/20 20 Inactive Lyrica 50 mg capsule RxNorm: 779448 Take 1 Capsule(s) Oral QAM every morning 02/15/20 20 Inactive Lyrica 100 mg capsule RxNorm: 625737 Take 1 Capsule(s) Oral QHS every night at bedtime 02/15/20 20 Inactive Lyrica 100 mg capsule RxNorm: 079368 Take 1 Capsule(s) Oral QHS every night at bedtime 02/15/20 20 Inactive Lyrica 50 mg capsule RxNorm: 107470 Take 1 Capsule(s) Oral QAM every morning 02/15/20 20 Inactive metoprolol succinate ER 200 mg tablet,extended release 24 hr RxNorm: 190784 Take 1 Tablet(s) Oral QD 03/28/20 23 Active loperamide 2 mg capsule RxNorm: 452633 Take 1 Capsule(s) Oral QID as needed 06/12/19 22 Active hydralazine 50 mg tablet RxNorm: 703729 Take 1 Tablet(s) Oral QID 08/12/19 23 Active venlafaxine ER 75 mg capsule,extended release 24 hr RxNorm: 515205 Take 3 Capsule(s) Oral QD 06/12/19 22 023 Inactive polyethylene glycol 3350 17 gram/dose oral powder RxNorm: 307803 Take 17=1 capful Gram(s) Oral BID as needed mix with 4-8oz of liquid 06/12/19 22 024 Inactive icosapent ethyl 1 gram capsule RxNorm: 2827875 Take 2 Capsule(s) (2 gm) Oral BID with meals 10/07/19 23 023 Inactive Okay to dispense one 2gm tab if you have that available. Levemir FlexTouch U-100 Insulin 100 unit/mL (3 mL) subcutaneous pen RxNorm: 373919 Inject 80 Unit(s) Subcutaneous BID 07/14/19 23 023 Inactive Novolog Flexpen U-100 Insulin aspart 100 unit/mL (3 mL) subcutaneous RxNorm: 9001951 Insert 30 Unit(s) Subcutaneous TID with meals 10/08/19 22 022 Inactive Medication Administered No Medication Administered data Reason For Visit No Reason For Visit data Plan of Care Planned Activity Notes Codes Status Date Patient Education: Patient Medication Summary Completed 10/26/2023 Care Plan: BMP (Basic [employer] lic Panel) (8) Ordered 10/26/2023 Appointment: Sandra Clark WPtel: [address] [facility] [address] [id number] Telehealth Psych Follow Up 12/09 Appointment: Tapan Shirley WPtel: [address] [phone] TCM 10/26/2022 Referral: [facility] WPtel: [phone], [address] Referral Records Received 09/21/2022 Appointment: Tapan Shirley WPtel: [address] [facility] [address] [id number] [place] F/U 08/11/2022 Appointment: Tapan Shirley WPtel: [address] [facility] [address] [id number] [place] F/U 07/14/2022 Appointment: Tapan Shirley WPtel: [address] [facility] [address] [id number] [place] F/U 02/10/2022 Referral: [facility] WPtel: [phone] [id number] Referral Completed 05/28/2021 Referral: General Cardiology Referral Complet ed 01/03/2021 Referral: General Psychologist Referral Close d Referral: General Psychiatrist Referral Patient/Family Scheduling Appointment Instructions Comment Date Leonid is a Male being seen living at [facility]. Initial BPS visit 01/2020. PMHx including DMII, CAD w/ 5 stents, Depression, Seizure Disorder and CKD stage 3. He moved into [facility] in 12/2019 but after a hospitalization 05/2021 he moved to the [facility] to have closer nursing attention. Sister Jyotsna involved in his care cell# [phone] Guardian: Giulia (tapan met in person 09/01/21), now has Lexii (same group as giulia)Lab Schedule: /September*September (CBC with diff, CMP, A1c) (Novemebr: CBC, CMP, A1c, Lipids, VitD) 10/08/2023
--- OUTSIDE RECORDS SUMMARY | 2023-11-03 11:29 | XMS_ITS | CCD ---
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 Phone Arpit WOOD CALKER-C, Harrison Primary Care Provider Leona vailable Charlotte WOOD CALKER-C, Harrison Chronic Care Management U navailable Summary Purpose DataExchange Insurance Providers Payer name Policy type / Coverage type Covered alliance party ID Effective Begin Date Effective End Date [place] Medicare Part B [id number] Unknown Unknown Medicaid [place] Medicare Part B [id number] Unknown Unknown Family history Sister Brittany Suggs [...] Care 09/03/[address]: 8380788 Non-Smoker / No History of Smoking 09/02/[address]: 640070850 No Alcohol Consum ption 09/02/2020 Allergies, Adverse Reactions, Alerts Substance Reaction Codes Entered Date Inactivated Date Status * NO KNOWN FOOD ALLERGIES Unknown 07/13/2023 No Inactive Date Active LISINOPRIL RxNorm: 32913 02/12/2020 No Inactive Da te Active Metformin [...] E78. 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5 %) eye ointment RxNorm: 102327 Apply 1 Application Both eyes QHS every night at bedtime Instill ~1 cm ribbon into affected eye 09/28/19 24 Inactive Artificial Tears (PF) 0.1 %-0.3 % drops in a dropperette RxNorm: 548902 Apply 1-2 Drop(s) Both eyes BID as needed 09/28/19 24 Inactive erythromycin 5 mg/gram (0.5 %) eye ointment RxNorm: 079624 Apply 1 Application Both eyes QHS every night at bedtime Instill ~1 cm ribbon into affected eye 09/28/19 24 Inactive acetaminophen 500 mg tablet RxNorm: 336935 (MAX APAP:4GM/24HR) Take 1 Tablet(s) Oral TID as needed for pain 09/24/19 24 Inactive carvedilol 25 mg tablet RxNorm: 037273 Take 1 Tablet(s) Oral QD 09/08/19 24 No Stop Date Active pregabalin 100 mg capsule RxNorm: 870111 Take 1 Capsule(s) Oral QAM every morning 09/07/19 24 024 Active rosuvastatin 40 mg tablet RxNorm: 076342 Take 1 Tablet(s) Oral QPM every evening 07/13/19 24 No Stop Date Active ezetimibe 10 mg tablet RxNorm: 699761 Take 1 Tablet(s) Oral QD 07/13/19 24 No Stop Date Active bisacodyl 10 mg rectal suppository RxNorm: 258525 Insert 1 Suppository Rectal QD as needed 07/13/19 24 No Stop Date Active polyethylene glycol 3350 17 gram/dose oral powder RxNorm: 537099 Take 17 Gram(s) Oral BID as needed mix in 4-8ox water 07/13/19 24 No Stop Date Active ketoconazole 2 % shampoo RxNorm: 771576 Apply 1 Application Topical UD as directed 07/13/19 24 No Stop Date Active aripiprazole 15 mg tablet RxNorm: 288108 Take 1/2 Tablet(s) Oral QD 07/13/19 24 No Stop Date Active Ozempic 1 mg/dose (4 mg/3 mL) subcutaneous pen injector RxNorm: 2041695 Inject 1 Milligram(s) Subcutaneous QW once a week 07/13/19 24 No Stop Date Active Guaifenesin AC 10 mg-100 mg/5 mL oral liquid RxNorm: 029032 Take 10 Milliliter(s) Oral Q4H every four hours as needed 07/13/19 24 No Stop Date Active isosorbide mononitrate ER 60 mg tablet,extended release 24 hr RxNorm: 616332 Take 1 Tablet(s) Oral QD 07/13/19 24 No Stop Date Active ammonium lactate 12 % topical cream RxNorm: 491086 Apply 1 Application Topical BID 07/13/19 24 No Stop Date Active hydrocortisone 2.5 % topical cream RxNorm: 642085 Apply 1 Application Topical BID as needed 07/13/19 24 No Stop Date Active rosuvastatin 20 mg sprinkle capsule RxNorm: 7800679 Take 1 Capsule(s) Oral QD 07/13/19 24 No Stop Date Active Vascepa 1 gram capsule RxNorm: 0853251 Take 2 Capsule(s) Oral BID 07/13/19 24 No Stop Date Active venlafaxine ER 75 mg capsule,extended release 24 hr RxNorm: 453108 Take 3 Capsule(s) Oral QD 07/13/19 24 No Stop Date Active Basaglar KwikPen U-100 Insulin 100 unit/mL (3 mL) subcutaneous RxNorm: 1949017 Inject 30U SubQ twice daily 07/07/19 24 025 Active Please dispense one month supply. Radha MendenhallPen U-100 Insulin 100 unit/mL (3 mL) subcutaneous RxNorm: 4002629 Inject 30U SubQ twice daily 07/07/19 24 024 Inactive Please dispense one month supply. pregabalin 150 mg capsule RxNorm: 596900 Take 1 Capsule(s) Oral QHS every night at bedtime 07/05/19 24 024 Active pregabalin 150 mg capsule RxNorm: 476867 Take 1 Capsule(s) Oral QHS every night at bedtime 07/05/19 24 024 Inactive polyethylene glycol 3350 17 gram/dose oral powder RxNorm: 825114 Take 1 Packet Oral QD as needed (1 packet = 17g) mix with 4-8oz of liquid 06/15/19 24 024 Inactive bisacodyl 10 mg rectal suppository RxNorm: 015121 Insert one suppository per rectum once daily as needed for constipation 06/15/19 24 024 Inactive bisacodyl 10 mg rectal suppository RxNorm: 320597 Insert one suppository per rectum once daily as needed for constipation 06/15/19 24 024 Inactive pregabalin 100 mg capsule RxNorm: 369515 Take 1 Capsule(s) Oral QAM every morning 04/27/20 23 024 Inactive Levemir FlexPen 100 unit/mL (3 mL) solution subcutaneous insulin pen RxNorm: 469322 Inject 30 Unit(s) Subcutaneous BID 04/27/20 23 024 Inactive rosuvastatin 40 mg tablet RxNorm: 882077 Take 1 Tablet(s) Oral QPM every evening 04/16/20 23 024 Inactive D/C rosuvastatin 20mg venlafaxine ER 75 mg capsule,extended release 24 hr RxNorm: 855359 Take 3 Capsule(s) Oral QD 04/14/20 23 023 Inactive pregabalin 100 mg capsule RxNorm: 536706 Take 1 Capsule(s) Oral QAM every morning [...] meter clotrimazole 1 % topical cream RxNorm: 540441 Take apply topically to abdominal folds twice daily for 14 days 03/12/20 024 Inactive Ozempic 1 mg/dose (4 mg/3 mL) subcutaneous pen injector RxNorm: 4511765 Inject 1 Milligram(s) Subcutaneous QW once a week 03/11/20 023 Inactive rosuvastatin 20 mg tablet RxNorm: 694090 Take 1 Tablet(s) Oral QD 02/26/20 023 Inactive d/c pravastatin 80mg Ozempic 1 mg/dose (4 mg/3 mL) subcutaneous pen injector RxNorm: 5673122 Inject 1 Milligram(s) Subcutaneous QW once a week 02/20/20 023 Inactive pregabalin 150 mg capsule RxNorm: 680036 Take 1 Capsule(s) Oral HS at bed time 02/19/20 023 Inactive pregabalin 100 mg capsule RxNorm: 223446 Take 1 Capsule(s) Oral QAM every morning 02/18/20 023 Inactive venlafaxine ER 75 mg capsule,extended release 24 hr RxNorm: 179942 Take 3 Capsule(s) Oral QD 02/04/20 23 023 Inactive FreeStyle Chema 2 Sensor kit RxNorm: use as directed 02/04/20 23 023 Inactive FreeStyle Chema 2 Sensor kit RxNorm: use as directed 02/04/20 23 024 Inactive fluconazole 150 mg tablet RxNorm: 634755 Take 1 Tablet(s) Oral on day 3 and on day 6 02/03/20 024 Active chlorthalidone 25 mg tablet RxNorm: 178059 Take 1 Tablet(s) Oral QAM every morning 02/03/20 No Stop Date Active venlafaxine ER 150 mg capsule,extended release 24 hr RxNorm: 495019 Take 1 Capsule(s) Oral QD 02/03/20 023 Inactive acetaminophen 500 mg tablet RxNorm: 965668 1 TABLET ORALLY 3 TIMES DAILY (MAX APAP:4GM/24HR) 12/15/19 023 Inactive clotrimazole 1 % topical cream RxNorm: 848275 apply 1g topically to top of feet and in between toes BID 12/09/19 023 Inactive potassium chloride ER 20 mEq tablet,extended release RxNorm: 639086 Take 1 Tablet(s) Oral BID 12/09/19 024 Inactive d/c 20mEq once daily (sent from hospital) nystatin 100,000 unit/gram topical powder RxNorm: 737299 APPLY TO AFFECTED AREAS TOPICALLY 2 TIMES DAILY 11/21/19 024 Inactive Nystop 100,000 unit/gram topical powder RxNorm: 321515 Apply to abd folds, under breasts and L side of groin Topical BID x 14 days, then BID PRN 11/20/19 023 Inactive dx: yeast dermatitis Bengay Ultra Strength 4 %-30 %-10 % topical cream RxNorm: 382998 Apply 1 Gram(s) Topical QID PRN to feet and legs for neuropathic pain 11/11/19 024 Active clotrimazole 1 % topical cream RxNorm: 455067 Apply 1/2 Gram(s) Topical BID Apply to affected areas of groin, periarea, and abdominal topically 2 times daily 11/10/19 23 023 Inactive hydrocortisone 2.5 % topical cream RxNorm: 028066 Apply 1/2 Gram(s) Topical BID as needed 11/10/19 024 Inactive Humulin R U-500 (Concentrated) Insulin 500 unit/mL subcutaneous soln RxNorm: 229320 Inject 100 Unit(s) Subcutaneous TID 10/07/19 024 Inactive Levemir FlexPen 100 unit/mL (3 mL) solution subcutaneous insulin pen RxNorm: 125068 Inject 30 Unit(s) Subcutaneous BID 10/07/19 023 Inactive Ozempic 0.25 mg or 0.5 mg (2 mg/3 mL) subcutaneous pen injector RxNorm: 1549855 Inject 1/2 Milligram(s) Subcutaneous QW once a week 10/07/19 024 Inactive aripiprazole 15 mg tablet RxNorm: 687650 1/2 TAB (7.5MG) ORALLY DAILY (DX:MAJOR DEPRESSIVE DISORDER) 09/23/19 023 Inactive Lancets,Thin 28 gauge RxNorm: Use 1 as directed QID 09/15/19 23 024 Inactive Accu-Chek Guide test strips RxNorm: Use 1 Test Strip QID 09/15/19 23 023 Inactive ok to substitute with any covered alternative test strip torsemide 20 mg tablet RxNorm: 693634 Take 1 Tablet(s) Oral BID 09/09/19 024 Inactive d/c once daily dosing carvedilol 25 mg tablet RxNorm: 368104 Take 1 Tablet(s) Oral QD 08/25/19 024 Inactive pregabalin 150 mg capsule RxNorm: 344656 1 Capsule(s) Oral HS at bed time 08/18/19 023 Inactive pregabalin 100 mg capsule RxNorm: 111892 1 Capsule(s) Oral QAM every morning 08/18/19 023 Inactive carvedilol 25 mg tablet RxNorm: 652140 1 Tablet(s) Oral QD 07/28/19 23 023 Inactive lisinopril 20 mg tablet RxNorm: 602819 Give 1 Tablet(s) Oral QD 07/28/19 23 023 Inactive Lyrica 150 mg capsule RxNorm: 197212 Take 1 Capsule(s) Oral QHS every night at bedtime 07/19/19 023 Inactive d/c 100mg dose Diflucan 150 mg tablet RxNorm: 648043 Take 1 Tablet(s) Oral QD repeat on day 3 and 6 07/19/19 23 023 Inactive pregabalin 100 mg capsule RxNorm: 795655 Take 1 Capsule(s) Oral QAM every morning 07/19/19 23 023 Inactive gatifloxacin 0.5 % eye drops RxNorm: 599487 Instill 1 Drop(s) as directed TID Instill 1 drop in to affected eye(s) starting 1 day prior to surgery and continue until gone (do not exceed 4 weeks). 07/13/19 23 023 Inactive carvedilol 25 mg tablet RxNorm: 669184 2 Tablet(s) Oral BID 07/13/19 23 023 Inactive Humulin R Regular U-100 Insulin 100 unit/mL injection solution RxNorm: 440262 85 Unit(s) Injection TID 07/13/19 23 023 Inactive ketorolac 0.5 % eye drops RxNorm: 276671 Instill 1 Drop(s) as directed QID Instill 1 drop into affected eye(s) 4 times daily starting 1 day prior to surgery and continue until gone (do not exceed 4 weeks). 07/13/19 23 023 Inactive Diflucan 150 mg tablet RxNorm: 075014 Take 1 Tablet(s) Oral QD repeat on day 3 and 6 06/30/19 23 023 Inactive Accu-Chek Guide test strips RxNorm: Use 1 Test Strip QID Use 1 test strip to monitor blood glucose 4 times daily and as needed. Dx:E11.42. 06/23/19 23 023 Inactive ok to substitute with any covered alternative test strip dextromethorphan-gu aifenesin 10 mg-100 mg/5 mL oral liquid RxNorm: 872645 Take 10 Milliliter(s) Oral every 4 hours as needed for cough 06/19/19 23 023 Inactive dextromethorphan-gu aifenesin 10 mg-100 mg/5 mL oral liquid RxNorm: 643513 Take 10 Milliliter(s) Oral every 4 hours as needed for cough 06/19/19 23 023 Inactive Lyrica 150 mg capsule RxNorm: 582575 Take 1 Capsule(s) Oral QHS every night at bedtime 06/18/19 023 Inactive d/c 100mg dose aripiprazole 15 mg tablet RxNorm: 140444 /2 TAB (7.5MG) ORALLY DAILY (DX:MAJOR DEPRESSIVE DISORDER) 06/05/19 23 023 Inactive pregabalin 100 mg capsule RxNorm: 041260 1 Capsule(s) Oral QAM every morning 06/02/19 023 Inactive Banophen 50 mg capsule RxNorm: 9708836 Take 1 Capsule(s) Oral Q6H every 6 hours as needed 05/19/19 23 No Stop Date Active Novolog Flexpen U-100 Insulin aspart 100 unit/mL (3 mL) subcutaneous RxNorm: 1416296 Inject 10 Unit(s) Subcutaneous QHS every night at bedtime with nighttime snack 04/08/20 022 Inactive Novolog Flexpen U-100 Insulin aspart 100 unit/mL (3 mL) subcutaneous RxNorm: 6274133 Inject 42 Unit(s) Subcutaneous TID in addition to sliding scale 04/08/20 022 Inactive d/c 36u albuterol sulfate HFA 90 mcg/actuation aerosol inhaler RxNorm: 7853951 Take 2 Puff(s) Inhalation Q4H every four hours as needed as needed for SOB, cough, or wheezing 04/07/20 22 030 Active Banophen 50 mg capsule RxNorm: 5737994 Take 1 Capsule(s) Oral Q6H every 6 hours as needed 04/06/20 023 Inactive diphenhydramine 50 mg tablet RxNorm: 6470735 Take 1 Tablet(s) Oral Q6H every 6 hours as needed 04/06/20 22 022 Inactive diphenhydramine 50 mg tablet RxNorm: 8381310 1 Tablet(s) Oral Q6H every 6 hours as needed 04/06/20 22 022 Inactive Abilify 15 mg tablet RxNorm: 540699 /2 Tablet(s) Oral QD 03/10/20 22 023 Inactive Shingrix (PF) 50 mcg/0.5 mL intramuscular suspension, kit RxNorm: 7183719 Administer 1/2 Milliliter(s) Intramuscular QD one time shingrix step 2 ( step 1 given 11/04/21) WITH needle - Nursing please administer upon arrival and once administered post a bridge message with date of administration, marker maker, expiration date, and lot# so we can update [facility] 02/18/20 22 022 Inactive dispense with needle Shingrix (PF) 50 mcg/0.5 mL intramuscular suspension, kit RxNorm: 6405998 Administer 1/2 Milliliter(s) Intramuscular QD one time shingrix step 2 ( step 1 given 11/04/21) WITH needle - Nursing please administer upon arrival and once administered post a bridge message with date of administration, marker maker, expiration date, and lot# so we can update [facility] 02/18/20 22 022 Inactive dispense with needle polyethylene glycol 3350 17 gram/dose oral powder RxNorm: 019684 Take 17=1 capful Gram(s) Oral QD mix with 4-8oz of liquid 01/08/20 22 023 Inactive take this in addition to BID prn order Lyrica 100 mg capsule RxNorm: 899007 Take 1 Capsule(s) Oral QAM every morning 01/08/20 22 022 Inactive d/c 50mg dose acetaminophen 500 mg tablet RxNorm: 529132 Take 1 Tablet(s) Oral TID 01/08/20 22 022 Inactive d/c PRN order Lyrica 150 mg capsule RxNorm: 111029 Take 1 Capsule(s) Oral QHS every night at bedtime 01/08/20 22 023 Inactive d/c 100mg dose Abilify 5 mg tablet RxNorm: 502972 Take 1 Tablet(s) Oral QD take 1 tab po QD #30 refill 5 dx: MDD 12/12/19 22 022 Inactive Abilify 5 mg tablet RxNorm: 890055 Take 1 Tablet(s) Oral QD take 1 tab po QD #30 refill 5 dx: MDD 12/12/19 22 022 Inactive Novolog Flexpen U-100 Insulin aspart 100 unit/mL (3 mL) subcutaneous RxNorm: 3880209 Inject 42 Unit(s) Subcutaneous TID in addition to sliding scale 12/10/19 22 022 Inactive d/c 36u chlorthalidone 25 mg tablet RxNorm: 708773 Take 1 Tablet(s) Oral QAM every morning 12/10/19 22 023 Inactive pregabalin 50 mg capsule RxNorm: 482562 Take 1 Capsule(s) Oral QAM every morning 11/12/19 22 022 Inactive tetanus-diphtheria toxoids-Td 2 Lf unit-2 Lf unit/0.5 mL IM suspension RxNorm: 139 Take 0.5 Miscellaneous Intramuscular 11/12/19 22 022 Inactive need tdap - nursing to administer upon arrival pregabalin 50 mg capsule RxNorm: 611634 Take 1 Capsule(s) Oral QAM every morning 10/16/19 022 Inactive pregabalin 50 mg capsule RxNorm: 330324 Take 1 Capsule(s) Oral QAM every morning 10/16/19 22 022 Inactive pregabalin 50 mg capsule RxNorm: 124706 1 Capsule(s) Oral QAM every morning 10/15/19 22 022 Inactive Shingrix (PF) 50 mcg/0.5 mL intramuscular suspension, kit RxNorm: 1106023 Administer 1/2 Milliliter(s) Intramuscular one time Nursing please administer upon arrival and once administered post a bridge message with date of administration, marker maker, expiration date, and lot# so we can update [facility]. 10/09/19 22 022 Inactive shingrix step 1 Shingrix (PF) 50 mcg/0.5 mL intramuscular suspension, kit RxNorm: 5303520 Administer 1/2 Milliliter(s) Intramuscular one time Nursing please administer upon arrival and once administered post a bridge message with date of administration, marker maker, expiration date, and lot# so we can update [facility]. 10/09/19 22 022 Inactive shingrix step 1 cholecalciferol (vitamin D3) 1,250 mcg (50,000 unit) capsule RxNorm: 873239 Take 1 Capsule(s) Oral QW once a [...] aspart 100 unit/mL (3 mL) subcutaneous RxNorm: 8691387 Inject 10 Unit(s) Subcutaneous QHS every night at bedtime with nighttime snack 10/08/19 22 Inactive Shingrix (PF) 50 mcg/0.5 mL intramuscular suspension, kit RxNorm: 3235486 ADMINISTER 2-DOSE SERIES PER CDC GUIDELINES 10/08/19 22 Active Shingrix (PF) 50 mcg/0.5 mL intramuscular suspension, kit RxNorm: 5852921 ADMINISTER 2-DOSE SERIES PER CDC GUIDELINES 10/08/19 22 Inactive Novolog Flexpen U-100 Insulin aspart 100 unit/mL (3 mL) subcutaneous RxNorm: 2947555 Inject 36 Unit(s) Subcutaneous TID in addition to sliding scale 10/08/19 22 Inactive Novofine Autocover 30 gauge x 1/3 needle RxNorm: Use 1 Miscellaneous UD as directed Use 1 needle as directed to administer insulin 5 times a day Dx:E11.42. 10/03/19 Inactive ok to substitute with any covered alternative pen needle benzoyl peroxide 10 % topical cleanser RxNorm: 860993 Apply 1 Application Topical QD apply to face, wash rinse and dry once daily (may change to QOD if drying) 08/19/19 22 022 Inactive (%covered by insurance) #60ml refill 11 dx: acne benzoyl peroxide 10 % topical cleanser RxNorm: 148038 Apply 1 Application Topical QD apply to face, wash rinse and dry once daily (may change to QOD if drying) 08/19/19 22 022 Inactive (%covered by insurance) #60ml refill 11 dx: acne benzoyl peroxide 10 % topical cleanser RxNorm: 872846 Apply 1 Application Topical QD apply to face, wash rinse and dry once daily (may change to QOD if drying) 08/19/19 22 022 Inactive (%covered by insurance) #60ml refill 11 dx: acne Lyrica 50 mg capsule RxNorm: 691403 Take 1 Capsule(s) Oral QAM every morning Take 1 capsule by mouth once daily 08/19/19 22 022 Inactive benzoyl peroxide 10 % topical cleanser RxNorm: 887161 Apply 1 Application Topical QD apply to face, wash rinse and dry once daily (may change to QOD if drying) 08/19/19 22 022 Inactive (%covered by insurance) #60ml refill 11 dx: acne Lyrica 100 mg capsule RxNorm: 542653 Take 1 Capsule(s) Oral QHS every night at bedtime Take 1 capsule by mouth once daily at bedtime 08/19/19 22 022 Inactive Lyrica 100 mg capsule RxNorm: 385116 Take 1 Capsule(s) Oral QHS every night at bedtime Take 1 capsule by mouth once daily at bedtime 08/16/19 22 Inactive Lyrica 50 mg capsule RxNorm: 926388 Take 1 Capsule(s) Oral QAM every morning Take 1 capsule by mouth once daily 08/16/19 22 Inactive Levemir FlexTouch U-100 Insulin 100 unit/mL (3 mL) subcutaneous pen RxNorm: 691163 Inject 86 Unit(s) Subcutaneous BID 08/05/19 22 022 Inactive d/c 83units BID Lyrica 100 mg capsule RxNorm: 711128 Take 1 Capsule(s) Oral QHS every night at bedtime Take 1 capsule by mouth once daily at bedtime 07/14/19 22 022 Inactive Lyrica 50 mg capsule RxNorm: 108153 Take 1 Capsule(s) Oral QAM every morning Take 1 capsule by mouth once daily 07/14/19 22 022 Inactive Levemir FlexTouch U-100 Insulin 100 unit/mL (3 mL) subcutaneous pen RxNorm: 252691 Inject 83 Unit(s) Subcutaneous BID 07/08/19 22 [...] test strip hydralazine 50 mg tablet RxNorm: 398492 Take 1 Tablet(s) Oral QID 05/05/20 21 022 Inactive venlafaxine ER 225 mg tablet,extended release 24 hr RxNorm: 789543 Take 1 Tablet(s) Oral QD 05/05/20 21 021 Inactive venlafaxine ER 225 mg tablet,extended release 24 hr RxNorm: 372830 Take 1 Tablet(s) Oral QD 05/05/20 022 Inactive isosorbide mononitrate ER 30 mg tablet,extended release 24 hr RxNorm: 756314 Take 1 Tablet(s) Oral QD 05/05/20 024 Inactive hydralazine 50 mg tablet RxNorm: 058222 Take 1 Tablet(s) Oral QID 05/05/20 021 Inactive aspirin 81 mg tablet,delayed release RxNorm: 572598 Take 1 Tablet(s) Oral QD 03/31/20 022 Inactive Vitamin D2 1,250 mcg (50,000 unit) capsule RxNorm: 3435803 Take 1 Capsule(s) Oral QW once a week x 12 weeks 03/31/20 Inactive Vitamin D2 1,250 mcg (50,000 unit) capsule RxNorm: 6107606 Take 1 Capsule(s) Oral QW once a week 03/31/20 021 Inactive Zetia 10 mg tablet RxNorm: 055766 Take 1 Tablet(s) Oral QD 03/31/20 024 Inactive Zetia 10 mg tablet RxNorm: 469015 Take 1 Tablet(s) Oral QD 03/31/20 021 Inactive hydralazine 25 mg tablet RxNorm: 714365 Take 1 Tablet(s) Oral QID 03/31/20 021 Inactive hydralazine 25 mg tablet RxNorm: 014264 Take 1 Tablet(s) Oral QID 03/31/20 021 Inactive hydralazine 10 mg tablet RxNorm: 198175 Take 1 Tablet(s) Oral QID 03/03/20 021 Inactive cephalexin 500 mg tablet RxNorm: 808931 Take 1 Tablet(s) Oral QID 02/27/20 021 Inactive cephalexin 500 mg tablet RxNorm: 807541 Take 1 Tablet(s) Oral QID 02/27/20 021 Inactive lisinopril 40 mg tablet RxNorm: 388568 Take 1 Tablet(s) Oral QD 02/11/20 023 Inactive Eliquis 5 mg tablet RxNorm: 9756185 Take 1 Tablet(s) Oral BID 01/05/20 022 Inactive Eliquis 5 mg tablet RxNorm: 1300689 Take 2 Tablet(s) Oral QD 01/01/20 21 021 Inactive Lyrica 50 mg capsule RxNorm: 297156 Take 1 Capsule(s) Oral QAM every morning 12/24/19 021 Inactive Lyrica 100 mg capsule RxNorm: 189467 Take 1 Capsule(s) Oral QHS every night at bedtime 12/24/19 021 Inactive clotrimazole 1 % topical cream RxNorm: 288217 Apply to right foot and toes Topical BID 12/04/19 21 023 Inactive metoprolol succinate ER 200 mg tablet,extended release 24 hr RxNorm: 071850 Take 1 Tablet(s) Oral QD 12/04/19 023 Inactive ciprofloxacin 500 mg tablet RxNorm: 665613 Take 1 Tablet(s) Oral QD 11/30/19 021 Inactive DX ofloxacin otic drops Accu-Chek Guide test strips RxNorm: USE 1 TO CHECK GLUCOSE 4 TIMES DAILY AND NEEDED 11/15/19 023 Inactive Blood Glucose Test strips RxNorm: Use 1 Test Strip QID at PRN 11/05/19 21 023 Inactive E11.42 lisinopril 30 mg tablet RxNorm: 434190 Take 1 Tablet(s) Oral QD 10/30/19 021 Inactive lisinopril 20 mg tablet RxNorm: 568657 Take 1 Tablet(s) Oral QD 10/23/19 021 Inactive lisinopril 20 mg tablet RxNorm: 107171 Take 1 Tablet(s) Oral QD 10/23/19 21 021 Inactive lisinopril 10 mg tablet RxNorm: 252991 Take 1 Tablet(s) Oral QD 10/02/19 21 021 Inactive icosapent ethyl 1 gram capsule RxNorm: 4803388 Take 2 Capsule(s) (2 gm) Oral BID with meals 09/12/19 024 Inactive Okay to dispense one 2gm tab if you have that available. icosapent ethyl 1 gram capsule RxNorm: 7920063 Take 2 Capsule(s) Oral BID 09/12/19 21 021 Inactive Okay to dispense one 2gm tab if you have that available. amlodipine 10 mg tablet RxNorm: 650038 Take 1 Tablet(s) Oral QD 09/04/19 21 022 Inactive aspirin 81 mg tablet,delayed release RxNorm: 081097 Take 1 Tablet(s) Oral QD 09/04/19 021 Inactive Levemir FlexTouch U-100 Insulin 100 unit/mL (3 mL) subcutaneous pen RxNorm: 351411 Inject 150 Unit(s) Subcutaneous BID 09/04/19 21 022 Inactive venlafaxine ER 150 mg tablet,extended release 24 hr RxNorm: 845312 Take 1 Tablet(s) Oral QD 09/04/19 021 Inactive clotrimazole-betame thasone 1 %-0.05 % topical cream RxNorm: 145017 Apply to rash on red area on left abdomen/chest Topical BID 08/10/19 Inactive amlodipine 5 mg tablet RxNorm: 156139 Take 1 Tablet(s) Oral QD 07/31/19 21 021 Inactive cephalexin 500 mg tablet RxNorm: 116720 Take 1 Tablet(s) Oral BID BID - Twice Daily 07/31/19 021 Inactive Start 08/01/20 pantoprazole 40 mg tablet,delayed release RxNorm: 269641 Take 1 Tablet(s) Oral QAM every morning 07/08/19 022 Inactive senna 8.6 mg tablet RxNorm: 270151 Take 1 Tablet(s) Oral QD 07/08/19 022 Inactive carbamazepine 200 mg tablet RxNorm: 632186 Take 1 Tablet(s) Oral BID 07/08/19 21 022 Inactive clopidogrel 75 mg tablet RxNorm: 317508 Take 1 Tablet(s) Oral QD 07/08/19 21 021 Inactive Blood Glucose Test strips RxNorm: Use 1 Test Strip QID at PRN 07/08/19 21 Inactive E11.42 Novolog Flexpen U-100 Insulin aspart 100 unit/mL (3 mL) subcutaneous RxNorm: 6263735 Administer per sliding scale Milliliter(s) Subcutaneous TID 151-200: 10 u; 201-250: 20 u; 251-300: 30 u; 301-350: 40 u; 351-400: 50 u. 07/08/19 21 022 Inactive lisinopril 5 mg tablet RxNorm: 266031 Take 1 Tablet(s) Oral QD 07/08/19 21 021 Inactive Novolog Flexpen U-100 Insulin aspart 100 unit/mL (3 mL) subcutaneous RxNorm: 5894344 Inject 85 Unit(s) Subcutaneous TID 07/08/19 022 Inactive pravastatin 80 mg tablet RxNorm: 367082 Take 1 Tablet(s) Oral QHS every night at bedtime 07/08/19 023 Inactive clotrimazole 1 % topical cream RxNorm: 986599 Apply to bilateral groin areas Topical BID 07/08/19 21 022 Inactive metoprolol succinate ER 200 mg tablet,extended release 24 hr RxNorm: 810825 Take 1 Tablet(s) Oral QD 07/08/19 Inactive Vitamin D3 25 mcg (1,000 unit) tablet RxNorm: 010309 Take 1 Tablet(s) Oral QD 07/08/19 021 Inactive isosorbide dinitrate 30 mg tablet RxNorm: 109134 Take 1 Tablet(s) Oral QD 07/08/19 021 Inactive Levemir FlexTouch U-100 Insulin 100 unit/mL (3 mL) subcutaneous pen RxNorm: 891490 Inject 140 Unit(s) Subcutaneous BID 07/08/19 21 021 Inactive torsemide 20 mg tablet RxNorm: 638006 Take 1 Tablet(s) Oral QD 07/08/19 21 023 Inactive venlafaxine 75 mg tablet RxNorm: 086472 Take 1 Tablet(s) Oral QD 07/08/19 21 021 Inactive acetaminophen 500 mg tablet RxNorm: 727055 Take 1 Tablet(s) Oral TID as needed for headache 06/18/19 21 021 Inactive acetaminophen 500 mg tablet RxNorm: 388625 Take 1 Tablet(s) Oral TID as needed for headache 06/18/19 21 021 Inactive Lyrica 100 mg capsule RxNorm: 114753 Take 1 Capsule(s) Oral QHS every night at bedtime 06/11/19 21 021 Inactive Lyrica 50 mg capsule RxNorm: 471724 Take 1 Capsule(s) Oral QAM every morning 06/10/19 21 021 Inactive hydrocortisone 2.5 % topical cream RxNorm: 015829 Apply to bilateral groin creases Topical BID 05/15/20 20 021 Inactive clotrimazole 1 % topical cream RxNorm: 114819 Apply to bilateral groin areas Topical BID 05/15/20 20 021 Inactive Lyrica 50 mg capsule RxNorm: 908180 Take 1 Capsule(s) Oral QAM every morning 05/14/20 20 020 Inactive Lyrica 100 mg capsule RxNorm: 438814 Take 1 Capsule(s) Oral QHS every night [...] Inactive Nystop 100,000 unit/gram topical powder RxNorm: 476484 Apply to abd folds, under breasts and L side of groin Topical BID x 14 days, then BID PRN 04/08/20 20 Inactive dx: yeast dermatitis Lyrica 100 mg capsule RxNorm: 284415 Take 1 Capsule(s) Oral QHS every night at bedtime 03/13/20 20 Inactive Lyrica 50 mg capsule RxNorm: 349859 Take 1 Capsule(s) Oral QAM every morning 03/13/20 20 Inactive ketoconazole 2 % shampoo RxNorm: 194603 Apply Topical two times a week with showers 03/11/20 20 Inactive cholecalciferol (vitamin D3) 50 mcg (2,000 unit) tablet RxNorm: 828280 Take 1 Tablet(s) Oral QD 03/11/20 20 Inactive Zetia 10 mg tablet RxNorm: 693263 Take 1 Tablet(s) Oral QD 03/07/20 20 Inactive Zetia 10 mg tablet RxNorm: 496817 Take 1 Tablet(s) Oral QD 03/07/20 20 Inactive Lyrica 50 mg capsule RxNorm: 273752 Take 1 Capsule(s) Oral QAM every morning 02/15/20 20 Inactive Lyrica 100 mg capsule RxNorm: 576720 Take 1 Capsule(s) Oral QHS every night at bedtime 02/15/20 20 Inactive Lyrica 100 mg capsule RxNorm: 625533 Take 1 Capsule(s) Oral QHS every night at bedtime 02/15/20 20 Inactive Lyrica 50 mg capsule RxNorm: 561374 Take 1 Capsule(s) Oral QAM every morning 02/15/20 20 Inactive metoprolol succinate ER 200 mg tablet,extended release 24 hr RxNorm: 172527 Take 1 Tablet(s) Oral QD 08/12/19 Active loperamide 2 mg capsule RxNorm: 634377 Take 1 Capsule(s) Oral QID as needed 06/12/19 Active hydralazine 50 mg tablet RxNorm: 910249 Take 1 Tablet(s) Oral QID 08/12/19 23 Active venlafaxine ER 75 mg capsule,extended release 24 hr RxNorm: 137873 Take 3 Capsule(s) Oral QD 06/12/19 22 023 Inactive polyethylene glycol 3350 17 gram/dose oral powder RxNorm: 517465 Take 17=1 capful Gram(s) Oral BID as needed mix with 4-8oz of liquid 06/12/19 22 024 Inactive icosapent ethyl 1 gram capsule RxNorm: 3597252 Take 2 Capsule(s) (2 gm) Oral BID with meals 10/07/19 23 023 Inactive Okay to dispense one 2gm tab if you have that available. Levemir FlexTouch U-100 Insulin 100 unit/mL (3 mL) subcutaneous pen RxNorm: 200569 Inject 80 Unit(s) Subcutaneous BID 07/14/19 23 023 Inactive Novolog Flexpen U-100 Insulin aspart 100 unit/mL (3 mL) subcutaneous RxNorm: 7929463 Insert 30 Unit(s) Subcutaneous TID with meals 10/08/19 22 022 Inactive Medication Administered No Medication Administered data Reason For Visit No Reason For Visit data Plan of Care Planned Activity Notes Codes Status Date Referral: [facility]: [address], [address] [id number] Referral Records Received 09/21/2022 Referral: [facility]: [address] [id number] [place] Referral Completed 05/28/2021 Referral: General Cardiology [...] Sister Jyotsna involved in his care cell# [phone] Guardian: Don (tapan met in person 09/01/21), now has Lexii (same group as don)Lab Schedule: /September*September (CBC with diff, CMP, A1c) (Novemebr: CBC, CMP, A1c, Lipids, VitD) 10/08/2023
--- OUTSIDE RECORDS SUMMARY | 2023-11-06 06:48 | XMS_ITS | CCD ---
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, Harrison Primary Care Provider Leona vailable [place] [employer], Harrison Chronic Care Management U navailable Summary Purpose DataExchange Insurance Providers Payer name Policy type / Coverage type Covered constitution party ID Effective Begin Date Effective End Date Medicare [place] Medicare Part B [id number] Unknown Unknown Medicaid [place] Medicare Part B [id number] Unknown Unknown Family history Sister Brittany Suggs [...] Longterm 09/03/[address]: 0773922 Non-Smoker / No History of Smoking 09/02/[address]: 665633724 No Alcohol Consum ption 09/02/2020 Allergies, Adverse Reactions, Alerts Substance Reaction Codes Entered Date Inactivated Date Status * NO KNOWN FOOD ALLERGIES Unknown 07/13/2023 No Inactive Date Active LISINOPRIL RxNorm: 64663 02/12/2020 No Inactive Da te Active Metformin [...] E78. 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 ICD-10: Z79.899 ICD-9: [...] 09/07/2023 Resolved Coronary artery disease invo lving [place] coronary artery of [place] heart, angina presence unspecified ICD-10: I25.10 ICD-9: [...] Fill Instructions torsemide 20 mg tablet RxNorm: 020253 Take 1 Tablet(s) Oral QD 10/26/19 24 Active potassium chloride ER 20 mEq tablet,extended release RxNorm: 19800522 Take 2 Tablet(s) Oral BID 10/26/19 24 Active torsemide 20 mg tablet RxNorm: 623330 Take 1 Tablet(s) Oral QD 10/26/19 24 Inactive potassium chloride ER 20 mEq tablet,extended release RxNorm: 19800522 Take 2 Tablet(s) Oral BID 10/26/19 24 Inactive Artificial Tears (PF) 0.1 %-0.3 % drops in a dropperette RxNorm: 703516 Apply 1-2 Drop(s) Both eyes BID as needed 09/28/19 24 Active erythromycin 5 mg/gram (0.5 %) eye ointment RxNorm: 176763 Apply 1 Application Both eyes QHS every night at bedtime Instill ~1 cm ribbon into affected eye 09/28/19 24 Inactive Artificial Tears (PF) 0.1 %-0.3 % drops in a dropperette RxNorm: 817314 Apply 1-2 Drop(s) Both eyes BID as needed 09/28/19 24 Inactive erythromycin 5 mg/gram (0.5 %) eye ointment RxNorm: 030153 Apply 1 Application Both eyes QHS every night at bedtime Instill ~1 cm ribbon into affected eye 09/28/19 24 Inactive acetaminophen 500 mg tablet RxNorm: 317118 (MAX APAP:4GM/24HR) Take 1 Tablet(s) Oral TID as needed for pain 09/24/19 24 Inactive carvedilol 25 mg tablet RxNorm: 279392 Take 1 Tablet(s) Oral QD 09/08/19 24 No Stop Date Active pregabalin 100 mg capsule RxNorm: 408918 Take 1 Capsule(s) Oral QAM every morning 09/07/19 24 024 Active rosuvastatin 40 mg tablet RxNorm: 152643 Take 1 Tablet(s) Oral QPM every evening 07/13/19 24 No Stop Date Active ezetimibe 10 mg tablet RxNorm: 676879 Take 1 Tablet(s) Oral QD 07/13/19 24 No Stop Date Active bisacodyl 10 mg rectal suppository RxNorm: 528631 Insert 1 Suppository Rectal QD as needed 07/13/19 24 No Stop Date Active polyethylene glycol 3350 17 gram/dose oral powder RxNorm: 828730 Take 17 Gram(s) Oral BID as needed mix in 4-8ox water 07/13/19 24 No Stop Date Active ketoconazole 2 % shampoo RxNorm: 842989 Apply 1 Application Topical UD as directed 07/13/19 24 No Stop Date Active aripiprazole 15 mg tablet RxNorm: 894735 Take 1/2 Tablet(s) Oral QD 07/13/19 24 No Stop Date Active Ozempic 1 mg/dose (4 mg/3 mL) subcutaneous pen injector RxNorm: 9869888 Inject 1 Milligram(s) Subcutaneous QW once a week 07/13/19 24 No Stop Date Active Guaifenesin AC 10 mg-100 mg/5 mL oral liquid RxNorm: 815988 Take 10 Milliliter(s) Oral Q4H every four hours as needed 07/13/19 24 No Stop Date Active isosorbide mononitrate ER 60 mg tablet,extended release 24 hr RxNorm: 591977 Take 1 Tablet(s) Oral QD 07/13/19 24 No Stop Date Active ammonium lactate 12 % topical cream RxNorm: 439298 Apply 1 Application Topical BID 07/13/19 24 No Stop Date Active hydrocortisone 2.5 % topical cream RxNorm: 747551 Apply 1 Application Topical BID as needed 07/13/19 24 No Stop Date Active rosuvastatin 20 mg sprinkle capsule RxNorm: 2218869 Take 1 Capsule(s) Oral QD 07/13/19 24 No Stop Date Active Vascepa 1 gram capsule RxNorm: 1430784 Take 2 Capsule(s) Oral BID 07/13/19 24 No Stop Date Active venlafaxine ER 75 mg capsule,extended release 24 hr RxNorm: 348494 Take 3 Capsule(s) Oral QD 07/13/19 24 No Stop Date Active Basaglar KwikPen U-100 Insulin 100 unit/mL (3 mL) subcutaneous RxNorm: 7333150 Inject 30U SubQ twice daily 07/07/19 24 025 Active Please dispense one month supply. Radha MendenhallPen U-100 Insulin 100 unit/mL (3 mL) subcutaneous RxNorm: 4163347 Inject 30U SubQ twice daily 07/07/19 24 024 Inactive Please dispense one month supply. pregabalin 150 mg capsule RxNorm: 407210 Take 1 Capsule(s) Oral QHS every night at bedtime 07/05/19 24 024 Active pregabalin 150 mg capsule RxNorm: 647425 Take 1 Capsule(s) Oral QHS every night at bedtime 07/05/19 24 024 Inactive polyethylene glycol 3350 17 gram/dose oral powder RxNorm: 124944 Take 1 Packet Oral QD as needed (1 packet = 17g) mix with 4-8oz of liquid 06/15/19 24 024 Inactive bisacodyl 10 mg rectal suppository RxNorm: 857210 Insert one suppository per rectum once daily as needed for constipation 06/15/19 24 024 Inactive bisacodyl 10 mg rectal suppository RxNorm: 905464 Insert one suppository per rectum once daily as needed for constipation 06/15/19 24 024 Inactive pregabalin 100 mg capsule RxNorm: 849992 Take 1 Capsule(s) Oral QAM every morning 04/27/20 23 024 Inactive Levemir FlexPen 100 unit/mL (3 mL) solution subcutaneous insulin pen RxNorm: 000745 Inject 30 Unit(s) Subcutaneous BID 04/27/20 23 024 Inactive rosuvastatin 40 mg tablet RxNorm: 666033 Take 1 Tablet(s) Oral QPM every evening 04/16/20 23 024 Inactive D/C rosuvastatin 20mg venlafaxine ER 75 mg capsule,extended release 24 hr RxNorm: 738021 Take 3 Capsule(s) Oral QD 04/14/20 23 023 Inactive pregabalin 100 mg capsule RxNorm: 900333 Take 1 Capsule(s) Oral QAM every morning [...] meter clotrimazole 1 % topical cream RxNorm: 758327 Take apply topically to abdominal folds twice daily for 14 days 03/12/20 024 Inactive Ozempic 1 mg/dose (4 mg/3 mL) subcutaneous pen injector RxNorm: 2598191 Inject 1 Milligram(s) Subcutaneous QW once a week 03/11/20 023 Inactive rosuvastatin 20 mg tablet RxNorm: 136153 Take 1 Tablet(s) Oral QD 02/26/20 023 Inactive d/c pravastatin 80mg Ozempic 1 mg/dose (4 mg/3 mL) subcutaneous pen injector RxNorm: 7848630 Inject 1 Milligram(s) Subcutaneous QW once a week 02/20/20 023 Inactive pregabalin 150 mg capsule RxNorm: 831668 Take 1 Capsule(s) Oral HS at bed time 02/19/20 023 Inactive pregabalin 100 mg capsule RxNorm: 952689 Take 1 Capsule(s) Oral QAM every morning 02/18/20 023 Inactive venlafaxine ER 75 mg capsule,extended release 24 hr RxNorm: 262735 Take 3 Capsule(s) Oral QD 02/04/20 23 023 Inactive FreeStyle Chema 2 Sensor kit RxNorm: use as directed 02/04/20 23 023 Inactive FreeStyle Chema 2 Sensor kit RxNorm: use as directed 02/04/20 23 024 Inactive fluconazole 150 mg tablet RxNorm: 688700 Take 1 Tablet(s) Oral on day 3 and on day 6 02/03/20 024 Active chlorthalidone 25 mg tablet RxNorm: 283593 Take 1 Tablet(s) Oral QAM every morning 02/03/20 No Stop Date Active venlafaxine ER 150 mg capsule,extended release 24 hr RxNorm: 959518 Take 1 Capsule(s) Oral QD 02/03/20 023 Inactive acetaminophen 500 mg tablet RxNorm: 869777 1 TABLET ORALLY 3 TIMES DAILY (MAX APAP:4GM/24HR) 12/15/19 023 Inactive clotrimazole 1 % topical cream RxNorm: 066051 apply 1g topically to top of feet and in between toes BID 12/09/19 023 Inactive potassium chloride ER 20 mEq tablet,extended release RxNorm: 450201 Take 1 Tablet(s) Oral BID 12/09/19 024 Inactive d/c 20mEq once daily (sent from hospital) nystatin 100,000 unit/gram topical powder RxNorm: 011069 APPLY TO AFFECTED AREAS TOPICALLY 2 TIMES DAILY 11/21/19 024 Inactive Nystop 100,000 unit/gram topical powder RxNorm: 382849 Apply to abd folds, under breasts and L side of groin Topical BID x 14 days, then BID PRN 11/20/19 023 Inactive dx: yeast dermatitis [place] Ultra Strength 4 %-30 %-10 % topical cream RxNorm: 847386 Apply 1 Gram(s) Topical QID PRN to feet and legs for neuropathic pain 11/11/19 024 Inactive clotrimazole 1 % topical cream RxNorm: 808383 Apply 1/2 Gram(s) Topical BID Apply to affected areas of groin, periarea, and abdominal topically 2 times daily 11/10/19 23 023 Inactive hydrocortisone 2.5 % topical cream RxNorm: 114451 Apply 1/2 Gram(s) Topical BID as needed 11/10/19 024 Inactive Humulin R U-500 (Concentrated) Insulin 500 unit/mL subcutaneous soln RxNorm: 888559 Inject 100 Unit(s) Subcutaneous TID 10/07/19 024 Inactive Levemir FlexPen 100 unit/mL (3 mL) solution subcutaneous insulin pen RxNorm: 807361 Inject 30 Unit(s) Subcutaneous BID 10/07/19 023 Inactive Ozempic 0.25 mg or 0.5 mg (2 mg/3 mL) subcutaneous pen injector RxNorm: 7331352 Inject 1/2 Milligram(s) Subcutaneous QW once a week 10/07/19 024 Inactive aripiprazole 15 mg tablet RxNorm: 336725 1/2 TAB (7.5MG) ORALLY DAILY (DX:MAJOR DEPRESSIVE DISORDER) 09/23/19 023 Inactive Lancets,Thin 28 gauge RxNorm: Use 1 as directed QID 09/15/19 23 024 Inactive Accu-Chek Guide test strips RxNorm: Use 1 Test Strip QID 09/15/19 23 023 Inactive ok to substitute with any covered alternative test strip torsemide 20 mg tablet RxNorm: 140322 Take 1 Tablet(s) Oral BID 09/09/19 024 Inactive d/c once daily dosing carvedilol 25 mg tablet RxNorm: 333917 Take 1 Tablet(s) Oral QD 08/25/19 024 Inactive pregabalin 150 mg capsule RxNorm: 606490 1 Capsule(s) Oral HS at bed time 08/18/19 023 Inactive pregabalin 100 mg capsule RxNorm: 792608 1 Capsule(s) Oral QAM every morning 08/18/19 023 Inactive carvedilol 25 mg tablet RxNorm: 367844 1 Tablet(s) Oral QD 07/28/19 23 023 Inactive lisinopril 20 mg tablet RxNorm: 180207 Give 1 Tablet(s) Oral QD 07/28/19 23 023 Inactive Lyrica 150 mg capsule RxNorm: 212800 Take 1 Capsule(s) Oral QHS every night at bedtime 07/19/19 023 Inactive d/c 100mg dose Diflucan 150 mg tablet RxNorm: 365546 Take 1 Tablet(s) Oral QD repeat on day 3 and 6 07/19/19 23 023 Inactive pregabalin 100 mg capsule RxNorm: 296069 Take 1 Capsule(s) Oral QAM every morning 07/19/19 23 023 Inactive gatifloxacin 0.5 % eye drops RxNorm: 337984 Instill 1 Drop(s) as directed TID Instill 1 drop in to affected eye(s) starting 1 day prior to surgery and continue until gone (do not exceed 4 weeks). 07/13/19 23 023 Inactive carvedilol 25 mg tablet RxNorm: 054562 2 Tablet(s) Oral BID 07/13/19 23 023 Inactive Humulin R Regular U-100 Insulin 100 unit/mL injection solution RxNorm: 832435 85 Unit(s) Injection TID 07/13/19 23 023 Inactive ketorolac 0.5 % eye drops RxNorm: 237527 Instill 1 Drop(s) as directed QID Instill 1 drop into affected eye(s) 4 times daily starting 1 day prior to surgery and continue until gone (do not exceed 4 weeks). 07/13/19 23 023 Inactive Diflucan 150 mg tablet RxNorm: 779202 Take 1 Tablet(s) Oral QD repeat on day 3 and 6 06/30/19 23 023 Inactive Accu-Chek Guide test strips RxNorm: Use 1 Test Strip QID Use 1 test strip to monitor blood glucose 4 times daily and as needed. Dx:E11.42. 06/23/19 23 023 Inactive ok to substitute with any covered alternative test strip dextromethorphan-gu aifenesin 10 mg-100 mg/5 mL oral liquid RxNorm: 388807 Take 10 Milliliter(s) Oral every 4 hours as needed for cough 06/19/19 23 023 Inactive dextromethorphan-gu aifenesin 10 mg-100 mg/5 mL oral liquid RxNorm: 734032 Take 10 Milliliter(s) Oral every 4 hours as needed for cough 06/19/19 23 023 Inactive Lyrica 150 mg capsule RxNorm: 866610 Take 1 Capsule(s) Oral QHS every night at bedtime 06/18/19 023 Inactive d/c 100mg dose aripiprazole 15 mg tablet RxNorm: 725419 /2 TAB (7.5MG) ORALLY DAILY (DX:MAJOR DEPRESSIVE DISORDER) 06/05/19 23 023 Inactive pregabalin 100 mg capsule RxNorm: 725689 1 Capsule(s) Oral QAM every morning 06/02/19 023 Inactive Banophen 50 mg capsule RxNorm: 1263270 Take 1 Capsule(s) Oral Q6H every 6 hours as needed 05/19/19 23 No Stop Date Active Novolog Flexpen U-100 Insulin aspart 100 unit/mL (3 mL) subcutaneous RxNorm: 6543430 Inject 10 Unit(s) Subcutaneous QHS every night at bedtime with nighttime snack 04/08/20 022 Inactive Novolog Flexpen U-100 Insulin aspart 100 unit/mL (3 mL) subcutaneous RxNorm: 9704554 Inject 42 Unit(s) Subcutaneous TID in addition to sliding scale 04/08/20 022 Inactive d/c 36u albuterol sulfate HFA 90 mcg/actuation aerosol inhaler RxNorm: 3887388 Take 2 Puff(s) Inhalation Q4H every four hours as needed as needed for SOB, cough, or wheezing 04/07/20 22 030 Active Banophen 50 mg capsule RxNorm: 9754914 Take 1 Capsule(s) Oral Q6H every 6 hours as needed 04/06/20 023 Inactive diphenhydramine 50 mg tablet RxNorm: 7331436 Take 1 Tablet(s) Oral Q6H every 6 hours as needed 04/06/20 22 022 Inactive diphenhydramine 50 mg tablet RxNorm: 8509803 1 Tablet(s) Oral Q6H every 6 hours as needed 04/06/20 22 022 Inactive Abilify 15 mg tablet RxNorm: 967154 /2 Tablet(s) Oral QD 03/10/20 22 023 Inactive Shingrix (PF) 50 mcg/0.5 mL intramuscular suspension, kit RxNorm: 1514450 Administer 1/2 Milliliter(s) Intramuscular QD one time shingrix step 2 ( step 1 given 11/04/21) WITH needle - Nursing please administer upon arrival and once administered post a bridge message with date of administration, fourdrinier tender, expiration date, and lot# so we can update [facility] 02/18/20 22 022 Inactive dispense with needle Shingrix (PF) 50 mcg/0.5 mL intramuscular suspension, kit RxNorm: 1073843 Administer 1/2 Milliliter(s) Intramuscular QD one time shingrix step 2 ( step 1 given 11/04/21) WITH needle - Nursing please administer upon arrival and once administered post a bridge message with date of administration, fourdrinier tender, expiration date, and lot# so we can update [facility] 02/18/20 22 022 Inactive dispense with needle polyethylene glycol 3350 17 gram/dose oral powder RxNorm: 886907 Take 17=1 capful Gram(s) Oral QD mix with 4-8oz of liquid 01/08/20 22 023 Inactive take this in addition to BID prn order Lyrica 100 mg capsule RxNorm: 942974 Take 1 Capsule(s) Oral QAM every morning 01/08/20 22 022 Inactive d/c 50mg dose acetaminophen 500 mg tablet RxNorm: 259789 Take 1 Tablet(s) Oral TID 01/08/20 22 022 Inactive d/c PRN order Lyrica 150 mg capsule RxNorm: 212084 Take 1 Capsule(s) Oral QHS every night at bedtime 01/08/20 22 023 Inactive d/c 100mg dose Abilify 5 mg tablet RxNorm: 234078 Take 1 Tablet(s) Oral QD take 1 tab po QD #30 refill 5 dx: MDD 12/12/19 22 022 Inactive Abilify 5 mg tablet RxNorm: 730627 Take 1 Tablet(s) Oral QD take 1 tab po QD #30 refill 5 dx: MDD 12/12/19 22 022 Inactive Novolog Flexpen U-100 Insulin aspart 100 unit/mL (3 mL) subcutaneous RxNorm: 5947742 Inject 42 Unit(s) Subcutaneous TID in addition to sliding scale 12/10/19 22 022 Inactive d/c 36u chlorthalidone 25 mg tablet RxNorm: 357853 Take 1 Tablet(s) Oral QAM every morning 12/10/19 22 023 Inactive pregabalin 50 mg capsule RxNorm: 210672 Take 1 Capsule(s) Oral QAM every morning 11/12/19 22 022 Inactive tetanus-diphtheria toxoids-Td 2 Lf unit-2 Lf unit/0.5 mL IM suspension RxNorm: 139 Take 0.5 Miscellaneous Intramuscular 11/12/19 22 022 Inactive need tdap - nursing to administer upon arrival pregabalin 50 mg capsule RxNorm: 339333 Take 1 Capsule(s) Oral QAM every morning 10/16/19 022 Inactive pregabalin 50 mg capsule RxNorm: 724998 Take 1 Capsule(s) Oral QAM every morning 10/16/19 22 022 Inactive pregabalin 50 mg capsule RxNorm: 916986 1 Capsule(s) Oral QAM every morning 10/15/19 22 022 Inactive Shingrix (PF) 50 mcg/0.5 mL intramuscular suspension, kit RxNorm: 4628884 Administer 1/2 Milliliter(s) Intramuscular one time Nursing please administer upon arrival and once administered post a bridge message with date of administration, fourdrinier tender, expiration date, and lot# so we can update [facility]. 10/09/19 22 022 Inactive shingrix step 1 Shingrix (PF) 50 mcg/0.5 mL intramuscular suspension, kit RxNorm: 5725363 Administer 1/2 Milliliter(s) Intramuscular one time Nursing please administer upon arrival and once administered post a bridge message with date of administration, fourdrinier tender, expiration date, and lot# so we can update [facility]. 10/09/19 22 022 Inactive shingrix step 1 cholecalciferol (vitamin D3) 1,250 mcg (50,000 unit) capsule RxNorm: 690087 Take 1 Capsule(s) Oral QW once a [...] aspart 100 unit/mL (3 mL) subcutaneous RxNorm: 1002272 Inject 10 Unit(s) Subcutaneous QHS every night at bedtime with nighttime snack 10/08/19 22 Inactive Shingrix (PF) 50 mcg/0.5 mL intramuscular suspension, kit RxNorm: 6107964 ADMINISTER 2-DOSE SERIES PER CDC GUIDELINES 10/08/19 22 Active Shingrix (PF) 50 mcg/0.5 mL intramuscular suspension, kit RxNorm: 2187616 ADMINISTER 2-DOSE SERIES PER CDC GUIDELINES 10/08/19 22 Inactive Novolog Flexpen U-100 Insulin aspart 100 unit/mL (3 mL) subcutaneous RxNorm: 9789937 Inject 36 Unit(s) Subcutaneous TID in addition to sliding scale 10/08/19 22 Inactive Novofine Autocover 30 gauge x 1/3 needle RxNorm: Use 1 Miscellaneous UD as directed Use 1 needle as directed to administer insulin 5 times a day Dx:E11.42. 10/03/19 Inactive ok to substitute with any covered alternative pen needle benzoyl peroxide 10 % topical cleanser RxNorm: 645138 Apply 1 Application Topical QD apply to face, wash rinse and dry once daily (may change to QOD if drying) 08/19/19 22 022 Inactive (%covered by insurance) #60ml refill 11 dx: acne benzoyl peroxide 10 % topical cleanser RxNorm: 942940 Apply 1 Application Topical QD apply to face, wash rinse and dry once daily (may change to QOD if drying) 08/19/19 22 022 Inactive (%covered by insurance) #60ml refill 11 dx: acne benzoyl peroxide 10 % topical cleanser RxNorm: 806951 Apply 1 Application Topical QD apply to face, wash rinse and dry once daily (may change to QOD if drying) 08/19/19 22 022 Inactive (%covered by insurance) #60ml refill 11 dx: acne Lyrica 50 mg capsule RxNorm: 785837 Take 1 Capsule(s) Oral QAM every morning Take 1 capsule by mouth once daily 08/19/19 22 022 Inactive benzoyl peroxide 10 % topical cleanser RxNorm: 083386 Apply 1 Application Topical QD apply to face, wash rinse and dry once daily (may change to QOD if drying) 08/19/19 22 022 Inactive (%covered by insurance) #60ml refill 11 dx: acne Lyrica 100 mg capsule RxNorm: 828396 Take 1 Capsule(s) Oral QHS every night at bedtime Take 1 capsule by mouth once daily at bedtime 08/19/19 22 022 Inactive Lyrica 100 mg capsule RxNorm: 883585 Take 1 Capsule(s) Oral QHS every night at bedtime Take 1 capsule by mouth once daily at bedtime 08/16/19 22 Inactive Lyrica 50 mg capsule RxNorm: 810367 Take 1 Capsule(s) Oral QAM every morning Take 1 capsule by mouth once daily 08/16/19 22 Inactive Levemir FlexTouch U-100 Insulin 100 unit/mL (3 mL) subcutaneous pen RxNorm: 117666 Inject 86 Unit(s) Subcutaneous BID 08/05/19 22 022 Inactive d/c 83units BID Lyrica 100 mg capsule RxNorm: 439905 Take 1 Capsule(s) Oral QHS every night at bedtime Take 1 capsule by mouth once daily at bedtime 07/14/19 22 022 Inactive Lyrica 50 mg capsule RxNorm: 991915 Take 1 Capsule(s) Oral QAM every morning Take 1 capsule by mouth once daily 07/14/19 22 022 Inactive Levemir FlexTouch U-100 Insulin 100 unit/mL (3 mL) subcutaneous pen RxNorm: 651539 Inject 83 Unit(s) Subcutaneous BID 07/08/19 22 [...] test strip hydralazine 50 mg tablet RxNorm: 305758 Take 1 Tablet(s) Oral QID 05/05/20 21 022 Inactive venlafaxine ER 225 mg tablet,extended release 24 hr RxNorm: 644676 Take 1 Tablet(s) Oral QD 05/05/20 21 021 Inactive venlafaxine ER 225 mg tablet,extended release 24 hr RxNorm: 675237 Take 1 Tablet(s) Oral QD 05/05/20 022 Inactive isosorbide mononitrate ER 30 mg tablet,extended release 24 hr RxNorm: 739001 Take 1 Tablet(s) Oral QD 05/05/20 024 Inactive hydralazine 50 mg tablet RxNorm: 725641 Take 1 Tablet(s) Oral QID 05/05/20 021 Inactive aspirin 81 mg tablet,delayed release RxNorm: 878104 Take 1 Tablet(s) Oral QD 03/31/20 022 Inactive Vitamin D2 1,250 mcg (50,000 unit) capsule RxNorm: 4550528 Take 1 Capsule(s) Oral QW once a week x 12 weeks 03/31/20 Inactive Vitamin D2 1,250 mcg (50,000 unit) capsule RxNorm: 5489554 Take 1 Capsule(s) Oral QW once a week 03/31/20 021 Inactive Zetia 10 mg tablet RxNorm: 778463 Take 1 Tablet(s) Oral QD 03/31/20 024 Inactive Zetia 10 mg tablet RxNorm: 626363 Take 1 Tablet(s) Oral QD 03/31/20 021 Inactive hydralazine 25 mg tablet RxNorm: 801327 Take 1 Tablet(s) Oral QID 03/31/20 021 Inactive hydralazine 25 mg tablet RxNorm: 255065 Take 1 Tablet(s) Oral QID 03/31/20 021 Inactive hydralazine 10 mg tablet RxNorm: 562743 Take 1 Tablet(s) Oral QID 03/03/20 021 Inactive cephalexin 500 mg tablet RxNorm: 216160 Take 1 Tablet(s) Oral QID 02/27/20 021 Inactive cephalexin 500 mg tablet RxNorm: 805541 Take 1 Tablet(s) Oral QID 02/27/20 021 Inactive lisinopril 40 mg tablet RxNorm: 603187 Take 1 Tablet(s) Oral QD 02/11/20 023 Inactive Eliquis 5 mg tablet RxNorm: 9804691 Take 1 Tablet(s) Oral BID 01/05/20 022 Inactive Eliquis 5 mg tablet RxNorm: 8353588 Take 2 Tablet(s) Oral QD 01/01/20 21 021 Inactive Lyrica 50 mg capsule RxNorm: 136180 Take 1 Capsule(s) Oral QAM every morning 12/24/19 021 Inactive Lyrica 100 mg capsule RxNorm: 415684 Take 1 Capsule(s) Oral QHS every night at bedtime 12/24/19 021 Inactive clotrimazole 1 % topical cream RxNorm: 504378 Apply to right foot and toes Topical BID 12/04/19 21 023 Inactive metoprolol succinate ER 200 mg tablet,extended release 24 hr RxNorm: 622505 Take 1 Tablet(s) Oral QD 12/04/19 023 Inactive ciprofloxacin 500 mg tablet RxNorm: 090784 Take 1 Tablet(s) Oral QD 11/30/19 021 Inactive DX ofloxacin otic drops Accu-Chek Guide test strips RxNorm: USE 1 TO CHECK GLUCOSE 4 TIMES DAILY AND NEEDED 11/15/19 023 Inactive Blood Glucose Test strips RxNorm: Use 1 Test Strip QID at PRN 11/05/19 21 023 Inactive E11.42 lisinopril 30 mg tablet RxNorm: 697966 Take 1 Tablet(s) Oral QD 10/30/19 021 Inactive lisinopril 20 mg tablet RxNorm: 402359 Take 1 Tablet(s) Oral QD 10/23/19 021 Inactive lisinopril 20 mg tablet RxNorm: 537285 Take 1 Tablet(s) Oral QD 10/23/19 21 021 Inactive lisinopril 10 mg tablet RxNorm: 191210 Take 1 Tablet(s) Oral QD 10/02/19 21 021 Inactive icosapent ethyl 1 gram capsule RxNorm: 3247910 Take 2 Capsule(s) (2 gm) Oral BID with meals 09/12/19 024 Inactive Okay to dispense one 2gm tab if you have that available. icosapent ethyl 1 gram capsule RxNorm: 1524828 Take 2 Capsule(s) Oral BID 09/12/19 21 021 Inactive Okay to dispense one 2gm tab if you have that available. amlodipine 10 mg tablet RxNorm: 528987 Take 1 Tablet(s) Oral QD 09/04/19 21 022 Inactive aspirin 81 mg tablet,delayed release RxNorm: 646447 Take 1 Tablet(s) Oral QD 09/04/19 021 Inactive Levemir FlexTouch U-100 Insulin 100 unit/mL (3 mL) subcutaneous pen RxNorm: 149589 Inject 150 Unit(s) Subcutaneous BID 09/04/19 21 022 Inactive venlafaxine ER 150 mg tablet,extended release 24 hr RxNorm: 171062 Take 1 Tablet(s) Oral QD 09/04/19 021 Inactive clotrimazole-betame thasone 1 %-0.05 % topical cream RxNorm: 187949 Apply to rash on red area on left abdomen/chest Topical BID 08/10/19 Inactive amlodipine 5 mg tablet RxNorm: 729767 Take 1 Tablet(s) Oral QD 07/31/19 21 021 Inactive cephalexin 500 mg tablet RxNorm: 841738 Take 1 Tablet(s) Oral BID BID - Twice Daily 07/31/19 021 Inactive Start 08/01/20 pantoprazole 40 mg tablet,delayed release RxNorm: 084555 Take 1 Tablet(s) Oral QAM every morning 07/08/19 022 Inactive senna 8.6 mg tablet RxNorm: 659866 Take 1 Tablet(s) Oral QD 07/08/19 022 Inactive carbamazepine 200 mg tablet RxNorm: 793172 Take 1 Tablet(s) Oral BID 07/08/19 21 022 Inactive clopidogrel 75 mg tablet RxNorm: 274317 Take 1 Tablet(s) Oral QD 07/08/19 21 021 Inactive Blood Glucose Test strips RxNorm: Use 1 Test Strip QID at PRN 07/08/19 21 Inactive E11.42 Novolog Flexpen U-100 Insulin aspart 100 unit/mL (3 mL) subcutaneous RxNorm: 8032499 Administer per sliding scale Milliliter(s) Subcutaneous TID 151-200: 10 u; 201-250: 20 u; 251-300: 30 u; 301-350: 40 u; 351-400: 50 u. 07/08/19 21 022 Inactive lisinopril 5 mg tablet RxNorm: 489386 Take 1 Tablet(s) Oral QD 07/08/19 21 021 Inactive Novolog Flexpen U-100 Insulin aspart 100 unit/mL (3 mL) subcutaneous RxNorm: 7035363 Inject 85 Unit(s) Subcutaneous TID 07/08/19 022 Inactive pravastatin 80 mg tablet RxNorm: 142154 Take 1 Tablet(s) Oral QHS every night at bedtime 07/08/19 023 Inactive clotrimazole 1 % topical cream RxNorm: 657165 Apply to bilateral groin areas Topical BID 07/08/19 21 022 Inactive metoprolol succinate ER 200 mg tablet,extended release 24 hr RxNorm: 589067 Take 1 Tablet(s) Oral QD 07/08/19 Inactive Vitamin D3 25 mcg (1,000 unit) tablet RxNorm: 511180 Take 1 Tablet(s) Oral QD 07/08/19 021 Inactive isosorbide dinitrate 30 mg tablet RxNorm: 037872 Take 1 Tablet(s) Oral QD 07/08/19 021 Inactive Levemir FlexTouch U-100 Insulin 100 unit/mL (3 mL) subcutaneous pen RxNorm: 475551 Inject 140 Unit(s) Subcutaneous BID 07/08/19 21 021 Inactive torsemide 20 mg tablet RxNorm: 091807 Take 1 Tablet(s) Oral QD 07/08/19 21 023 Inactive venlafaxine 75 mg tablet RxNorm: 489964 Take 1 Tablet(s) Oral QD 07/08/19 21 021 Inactive acetaminophen 500 mg tablet RxNorm: 410989 Take 1 Tablet(s) Oral TID as needed for headache 06/18/19 21 021 Inactive acetaminophen 500 mg tablet RxNorm: 171790 Take 1 Tablet(s) Oral TID as needed for headache 06/18/19 21 021 Inactive Lyrica 100 mg capsule RxNorm: 578658 Take 1 Capsule(s) Oral QHS every night at bedtime 06/11/19 21 021 Inactive Lyrica 50 mg capsule RxNorm: 597038 Take 1 Capsule(s) Oral QAM every morning 06/10/19 21 021 Inactive hydrocortisone 2.5 % topical cream RxNorm: 084108 Apply to bilateral groin creases Topical BID 05/15/20 20 021 Inactive clotrimazole 1 % topical cream RxNorm: 415694 Apply to bilateral groin areas Topical BID 05/15/20 20 021 Inactive Lyrica 50 mg capsule RxNorm: 707539 Take 1 Capsule(s) Oral QAM every morning 05/14/20 20 020 Inactive Lyrica 100 mg capsule RxNorm: 391189 Take 1 Capsule(s) Oral QHS every night [...] Inactive Nystop 100,000 unit/gram topical powder RxNorm: 934212 Apply to abd folds, under breasts and L side of groin Topical BID x 14 days, then BID PRN 04/08/20 20 Inactive dx: yeast dermatitis Lyrica 100 mg capsule RxNorm: 320646 Take 1 Capsule(s) Oral QHS every night at bedtime 03/13/20 20 Inactive Lyrica 50 mg capsule RxNorm: 336641 Take 1 Capsule(s) Oral QAM every morning 03/13/20 20 Inactive ketoconazole 2 % shampoo RxNorm: 902507 Apply Topical two times a week with showers 03/11/20 20 Inactive cholecalciferol (vitamin D3) 50 mcg (2,000 unit) tablet RxNorm: 673283 Take 1 Tablet(s) Oral QD 03/11/20 20 Inactive Zetia 10 mg tablet RxNorm: 073271 Take 1 Tablet(s) Oral QD 03/07/20 20 Inactive Zetia 10 mg tablet RxNorm: 007100 Take 1 Tablet(s) Oral QD 03/07/20 20 Inactive Lyrica 50 mg capsule RxNorm: 079532 Take 1 Capsule(s) Oral QAM every morning 02/15/20 20 Inactive Lyrica 100 mg capsule RxNorm: 762050 Take 1 Capsule(s) Oral QHS every night at bedtime 02/15/20 20 Inactive Lyrica 100 mg capsule RxNorm: 688239 Take 1 Capsule(s) Oral QHS every night at bedtime 02/15/20 20 Inactive Lyrica 50 mg capsule RxNorm: 821182 Take 1 Capsule(s) Oral QAM every morning 02/15/20 20 Inactive metoprolol succinate ER 200 mg tablet,extended release 24 hr RxNorm: 493897 Take 1 Tablet(s) Oral QD 08/12/19 Active loperamide 2 mg capsule RxNorm: 288300 Take 1 Capsule(s) Oral QID as needed 06/12/19 Active hydralazine 50 mg tablet RxNorm: 744603 Take 1 Tablet(s) Oral QID 08/12/19 23 Active venlafaxine ER 75 mg capsule,extended release 24 hr RxNorm: 291144 Take 3 Capsule(s) Oral QD 06/12/19 22 023 Inactive polyethylene glycol 3350 17 gram/dose oral powder RxNorm: 563571 Take 17=1 capful Gram(s) Oral BID as needed mix with 4-8oz of liquid 06/12/19 22 024 Inactive icosapent ethyl 1 gram capsule RxNorm: 4784891 Take 2 Capsule(s) (2 gm) Oral BID with meals 10/07/19 23 023 Inactive Okay to dispense one 2gm tab if you have that available. Levemir FlexTouch U-100 Insulin 100 unit/mL (3 mL) subcutaneous pen RxNorm: 866616 Inject 80 Unit(s) Subcutaneous BID 07/14/19 23 023 Inactive Novolog Flexpen U-100 Insulin aspart 100 unit/mL (3 mL) subcutaneous RxNorm: 8705990 Insert 30 Unit(s) Subcutaneous TID with meals 10/08/19 22 022 Inactive Medication Administered No Medication Administered data Reason For Visit No Reason For Visit data Plan of Care Planned Activity Notes Codes Status Date Referral: [facility] WPtel: [phone] [facility], [address] [id number] Referral Records Received 09/21/2022 Referral: [facility] WPtel: [address] [id number] [place] Referral Completed 05/28/2021 Referral: General Cardiology [...] Sister Jyotsna involved in his care cell# [phone] Guardian: Don (tapan met in person 09/01/21), now has Lexii (same group as don)Lab Schedule: *September (CBC with diff, CMP, A1c) March: (CBC, CMP, A1c, Lipids, VitD)5.: CBC, CMP Na 139, K2.6L, creat 1.45H, eGFR 54L, BG 513H, A1c, VitD 32. 6.: BMP Na 140, K3.7, BG 397 H. BUN 24H, Creat 1.09, eGFR 76L. 6.: ER labs CBC, CMP K 3.9 Creat 1.0 eGFR 84 BG 395H 11/04/2023
--- OUTSIDE RECORDS SUMMARY | 2023-12-27 07:07 | XMS_ITS | CCD ---
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 Name Role Phone Harrison Durham Primary Care Provider Leona vailable Harrison Durham Chronic Care Management U navailable Summary Purpose DataExchange Insurance Providers Payer name Policy type / Coverage type Covered libertarian ID Effective Begin Date Effective End Date Medicare [place] Medicare Part B [id number] Unknown Unknown [place] Medicare Part B [id number] Unknown Unknown Family history Sister Brittany Suggs [...] Nursing Home 09/03/[address]: 7604214 Non-Smoker / No History of Smoking 09/02/[address]: 860336989 No Alcohol Consum ption 09/02/2020 Allergies, Adverse Reactions, Alerts Substance Reaction Codes Entered Date Inactivated Date Status * NO KNOWN FOOD ALLERGIES Unknown 07/13/2023 No Inactive Date Active LISINOPRIL RxNorm: 26088 02/12/2020 No Inactive Da te Active Metformin [...] E78. 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: [...] Fill Instructions torsemide 20 mg tablet RxNorm: 980788 Take 1 Tablet(s) Oral QD 10/26/19 24 024 Inactive potassium chloride ER 20 mEq tablet,extended release RxNorm: 19800522 Take 2 Tablet(s) Oral BID 10/26/19 24 025 Active torsemide 20 mg tablet RxNorm: 031245 Take 1 Tablet(s) Oral QD 10/26/19 24 Inactive potassium chloride ER 20 mEq tablet,extended release RxNorm: 19800522 Take 2 Tablet(s) Oral BID 10/26/19 24 024 Inactive Artificial Tears (PF) 0.1 %-0.3 % drops in a dropperette RxNorm: 549727 Apply 1-2 Drop(s) Both eyes BID as needed 09/28/19 24 025 Active erythromycin 5 mg/gram (0.5 %) eye ointment RxNorm: 011561 Apply 1 Application Both eyes QHS every night at bedtime Instill ~1 cm ribbon into affected eye 09/28/19 24 024 Inactive Artificial Tears (PF) 0.1 %-0.3 % drops in a dropperette RxNorm: 918737 Apply 1-2 Drop(s) Both eyes BID as needed 09/28/19 24 Inactive erythromycin 5 mg/gram (0.5 %) eye ointment RxNorm: 887718 Apply 1 Application Both eyes QHS every night at bedtime Instill ~1 cm ribbon into affected eye 09/28/19 24 Inactive acetaminophen 500 mg tablet RxNorm: 776176 (MAX APAP:4GM/24HR) Take 1 Tablet(s) Oral TID as needed for pain 09/24/19 24 024 Inactive carvedilol 25 mg tablet RxNorm: 282946 Take 1 Tablet(s) Oral QD 09/08/19 24 No Stop Date Active pregabalin 100 mg capsule RxNorm: 915602 Take 1 Capsule(s) Oral QAM every morning 09/07/19 24 024 Active rosuvastatin 40 mg tablet RxNorm: 780898 Take 1 Tablet(s) Oral QPM every evening 07/13/19 24 No Stop Date Active ezetimibe 10 mg tablet RxNorm: 166793 Take 1 Tablet(s) Oral QD 07/13/19 24 No Stop Date Active bisacodyl 10 mg rectal suppository RxNorm: 480592 Insert 1 Suppository Rectal QD as needed 07/13/19 24 No Stop Date Active polyethylene glycol 3350 17 gram/dose oral powder RxNorm: 894356 Take 17 Gram(s) Oral BID as needed mix in 4-8ox water 07/13/19 24 No Stop Date Active ketoconazole 2 % shampoo RxNorm: 833715 Apply 1 Application Topical UD as directed 07/13/19 24 No Stop Date Active aripiprazole 15 mg tablet RxNorm: 935340 Take 1/2 Tablet(s) Oral QD 07/13/19 24 No Stop Date Active Ozempic 1 mg/dose (4 mg/3 mL) subcutaneous pen injector RxNorm: 7109843 Inject 1 Milligram(s) Subcutaneous QW once a week 07/13/19 24 No Stop Date Active Guaifenesin AC 10 mg-100 mg/5 mL oral liquid RxNorm: 381487 Take 10 Milliliter(s) Oral Q4H every four hours as needed 07/13/19 24 No Stop Date Active isosorbide mononitrate ER 60 mg tablet,extended release 24 hr RxNorm: 351007 Take 1 Tablet(s) Oral QD 07/13/19 24 No Stop Date Active ammonium lactate 12 % topical cream RxNorm: 254828 Apply 1 Application Topical BID 07/13/19 24 No Stop Date Active hydrocortisone 2.5 % topical cream RxNorm: 608814 Apply 1 Application Topical BID as needed 07/13/19 24 No Stop Date Active rosuvastatin 20 mg sprinkle capsule RxNorm: 4836331 Take 1 Capsule(s) Oral QD 07/13/19 24 No Stop Date Active Vascepa 1 gram capsule RxNorm: 7895189 Take 2 Capsule(s) Oral BID 07/13/19 24 No Stop Date Active venlafaxine ER 75 mg capsule,extended release 24 hr RxNorm: 280972 Take 3 Capsule(s) Oral QD 07/13/19 24 No Stop Date Active Basaglar KwikPen U-100 Insulin 100 unit/mL (3 mL) subcutaneous RxNorm: 2626591 Inject 30U SubQ twice daily 07/07/19 24 025 Active Please dispense one month supply. Basaglar KwikPen U-100 Insulin 100 unit/mL (3 mL) subcutaneous RxNorm: 5102450 Inject 30U SubQ twice daily 07/07/19 24 024 Inactive Please dispense one month supply. pregabalin 150 mg capsule RxNorm: 459323 Take 1 Capsule(s) Oral QHS every night at bedtime 07/05/19 24 024 Active pregabalin 150 mg capsule RxNorm: 525254 Take 1 Capsule(s) Oral QHS every night at bedtime 07/05/19 24 024 Inactive polyethylene glycol 3350 17 gram/dose oral powder RxNorm: 991400 Take 1 Packet Oral QD as needed (1 packet = 17g) mix with 4-8oz of liquid 06/15/19 24 024 Inactive bisacodyl 10 mg rectal suppository RxNorm: 053604 Insert one suppository per rectum once daily as needed for constipation 06/15/19 24 024 Inactive bisacodyl 10 mg rectal suppository RxNorm: 330449 Insert one suppository per rectum once daily as needed for constipation 06/15/19 24 024 Inactive pregabalin 100 mg capsule RxNorm: 898155 Take 1 Capsule(s) Oral QAM every morning 04/27/20 23 024 Inactive Levemir FlexPen 100 unit/mL (3 mL) solution subcutaneous insulin pen RxNorm: 040428 Inject 30 Unit(s) Subcutaneous BID 04/27/20 23 024 Inactive rosuvastatin 40 mg tablet RxNorm: 549894 Take 1 Tablet(s) Oral QPM every evening 04/16/20 23 024 Inactive D/C rosuvastatin 20mg venlafaxine ER 75 mg capsule,extended release 24 hr RxNorm: 327403 Take 3 Capsule(s) Oral QD 04/14/20 23 023 Inactive pregabalin 100 mg capsule RxNorm: 658108 Take 1 Capsule(s) Oral QAM every morning [...] meter clotrimazole 1 % topical cream RxNorm: 426221 Take apply topically to abdominal folds twice daily for 14 days 03/12/20 024 Inactive Ozempic 1 mg/dose (4 mg/3 mL) subcutaneous pen injector RxNorm: 1867405 Inject 1 Milligram(s) Subcutaneous QW once a week 03/11/20 23 023 Inactive rosuvastatin 20 mg tablet RxNorm: 978160 Take 1 Tablet(s) Oral QD 02/26/20 023 Inactive d/c pravastatin 80mg Ozempic 1 mg/dose (4 mg/3 mL) subcutaneous pen injector RxNorm: 8512202 Inject 1 Milligram(s) Subcutaneous QW once a week 02/20/20 23 023 Inactive pregabalin 150 mg capsule RxNorm: 168380 Take 1 Capsule(s) Oral HS at bed time 02/19/20 23 023 Inactive pregabalin 100 mg capsule RxNorm: 990733 Take 1 Capsule(s) Oral QAM every morning 02/18/20 23 023 Inactive venlafaxine ER 75 mg capsule,extended release 24 hr RxNorm: 416746 Take 3 Capsule(s) Oral QD 02/04/20 23 023 Inactive FreeStyle Chema 2 Sensor kit RxNorm: use as directed 02/04/20 23 023 Inactive FreeStyle Chema 2 Sensor kit RxNorm: use as directed 02/04/20 23 024 Inactive fluconazole 150 mg tablet RxNorm: 884839 Take 1 Tablet(s) Oral on day 3 and on day 6 02/03/20 23 024 Active chlorthalidone 25 mg tablet RxNorm: 541733 Take 1 Tablet(s) Oral QAM every morning 02/03/20 No Stop Date Active venlafaxine ER 150 mg capsule,extended release 24 hr RxNorm: 997732 Take 1 Capsule(s) Oral QD 02/03/20 23 023 Inactive acetaminophen 500 mg tablet RxNorm: 386470 1 TABLET ORALLY 3 TIMES DAILY (MAX APAP:4GM/24HR) 12/15/19 23 023 Inactive clotrimazole 1 % topical cream RxNorm: 826053 apply 1g topically to top of feet and in between toes BID 12/09/19 23 023 Inactive potassium chloride ER 20 mEq tablet,extended release RxNorm: 902441 Take 1 Tablet(s) Oral BID 12/09/19 23 024 Inactive d/c 20mEq once daily (sent from hospital) nystatin 100,000 unit/gram topical powder RxNorm: 249645 APPLY TO AFFECTED AREAS TOPICALLY 2 TIMES DAILY 11/21/19 23 024 Inactive Nystop 100,000 unit/gram topical powder RxNorm: 918361 Apply to abd folds, under breasts and L side of groin Topical BID x 14 days, then BID PRN 11/20/19 23 023 Inactive dx: yeast dermatitis Bengay Ultra Strength 4 %-30 %-10 % topical cream RxNorm: 866206 Apply 1 Gram(s) Topical QID PRN to feet and legs for neuropathic pain 11/11/19 23 024 Inactive clotrimazole 1 % topical cream RxNorm: 444418 Apply 1/2 Gram(s) Topical BID Apply to affected areas of groin, periarea, and abdominal topically 2 times daily 11/10/19 23 023 Inactive hydrocortisone 2.5 % topical cream RxNorm: 517525 Apply 1/2 Gram(s) Topical BID as needed 11/10/19 024 Inactive Humulin R U-500 (Concentrated) Insulin 500 unit/mL subcutaneous soln RxNorm: 231472 Inject 100 Unit(s) Subcutaneous TID 10/07/19 024 Inactive Levemir FlexPen 100 unit/mL (3 mL) solution subcutaneous insulin pen RxNorm: 959105 Inject 30 Unit(s) Subcutaneous BID 10/07/19 023 Inactive Ozempic 0.25 mg or 0.5 mg (2 mg/3 mL) subcutaneous pen injector RxNorm: 5002547 Inject 1/2 Milligram(s) Subcutaneous QW once a week 10/07/19 024 Inactive aripiprazole 15 mg tablet RxNorm: 496863 1/2 TAB (7.5MG) ORALLY DAILY (DX:MAJOR DEPRESSIVE DISORDER) 09/23/19 023 Inactive Lancets,Thin 28 gauge RxNorm: Use 1 as directed QID 09/15/19 23 024 Inactive Accu-Chek Guide test strips RxNorm: Use 1 Test Strip QID 09/15/19 023 Inactive ok to substitute with any covered alternative test strip torsemide 20 mg tablet RxNorm: 370869 Take 1 Tablet(s) Oral BID 09/09/19 024 Inactive d/c once daily dosing carvedilol 25 mg tablet RxNorm: 179088 Take 1 Tablet(s) Oral QD 08/25/19 024 Inactive pregabalin 150 mg capsule RxNorm: 173886 1 Capsule(s) Oral HS at bed time 08/18/19 023 Inactive pregabalin 100 mg capsule RxNorm: 092261 1 Capsule(s) Oral QAM every morning 08/18/19 023 Inactive carvedilol 25 mg tablet RxNorm: 921972 1 Tablet(s) Oral QD 07/28/19 023 Inactive lisinopril 20 mg tablet RxNorm: 466470 Give 1 Tablet(s) Oral QD 07/28/19 023 Inactive Lyrica 150 mg capsule RxNorm: 058519 Take 1 Capsule(s) Oral QHS every night at bedtime 07/19/19 23 023 Inactive d/c 100mg dose Diflucan 150 mg tablet RxNorm: 786212 Take 1 Tablet(s) Oral QD repeat on day 3 and 6 07/19/19 23 023 Inactive pregabalin 100 mg capsule RxNorm: 274147 Take 1 Capsule(s) Oral QAM every morning 07/19/19 23 023 Inactive gatifloxacin 0.5 % eye drops RxNorm: 872315 Instill 1 Drop(s) as directed TID Instill 1 drop in to affected eye(s) starting 1 day prior to surgery and continue until gone (do not exceed 4 weeks). 07/13/19 23 023 Inactive carvedilol 25 mg tablet RxNorm: 936110 2 Tablet(s) Oral BID 07/13/19 23 023 Inactive Humulin R Regular U-100 Insulin 100 unit/mL injection solution RxNorm: 315554 85 Unit(s) Injection TID 07/13/19 23 023 Inactive ketorolac 0.5 % eye drops RxNorm: 501280 Instill 1 Drop(s) as directed QID Instill 1 drop into affected eye(s) 4 times daily starting 1 day prior to surgery and continue until gone (do not exceed 4 weeks). 07/13/19 023 Inactive Diflucan 150 mg tablet RxNorm: 951171 Take 1 Tablet(s) Oral QD repeat on day 3 and 6 06/30/19 23 023 Inactive Accu-Chek Guide test strips RxNorm: Use 1 Test Strip QID Use 1 test strip to monitor blood glucose 4 times daily and as needed. Dx:E11.42. 06/23/19 23 023 Inactive ok to substitute with any covered alternative test strip dextromethorphan-gu aifenesin 10 mg-100 mg/5 mL oral liquid RxNorm: 723233 Take 10 Milliliter(s) Oral every 4 hours as needed for cough 06/19/19 23 023 Inactive dextromethorphan-gu aifenesin 10 mg-100 mg/5 mL oral liquid RxNorm: 516888 Take 10 Milliliter(s) Oral every 4 hours as needed for cough 06/19/19 023 Inactive Lyrica 150 mg capsule RxNorm: 149187 Take 1 Capsule(s) Oral QHS every night at bedtime 06/18/19 023 Inactive d/c 100mg dose aripiprazole 15 mg tablet RxNorm: 329768 1/2 TAB (7.5MG) ORALLY DAILY (DX:MAJOR DEPRESSIVE DISORDER) 06/05/19 023 Inactive pregabalin 100 mg capsule RxNorm: 660529 1 Capsule(s) Oral QAM every morning 06/02/19 023 Inactive Banophen 50 mg capsule RxNorm: 0594275 Take 1 Capsule(s) Oral Q6H every 6 hours as needed 05/19/19 No Stop Date Active Novolog Flexpen U-100 Insulin aspart 100 unit/mL (3 mL) subcutaneous RxNorm: 0846559 Inject 10 Unit(s) Subcutaneous QHS every night at bedtime with nighttime snack 04/08/20 022 Inactive Novolog Flexpen U-100 Insulin aspart 100 unit/mL (3 mL) subcutaneous RxNorm: 7179320 Inject 42 Unit(s) Subcutaneous TID in addition to sliding scale 04/08/20 022 Inactive d/c 36u albuterol sulfate HFA 90 mcg/actuation aerosol inhaler RxNorm: 1951066 Take 2 Puff(s) Inhalation Q4H every four hours as needed as needed for SOB, cough, or wheezing 04/07/20 030 Active Banophen 50 mg capsule RxNorm: 9686852 Take 1 Capsule(s) Oral Q6H every 6 hours as needed 04/06/20 023 Inactive diphenhydramine 50 mg tablet RxNorm: 4784147 Take 1 Tablet(s) Oral Q6H every 6 hours as needed 04/06/20 022 Inactive diphenhydramine 50 mg tablet RxNorm: 1807019 1 Tablet(s) Oral Q6H every 6 hours as needed 04/06/20 22 022 Inactive Abilify 15 mg tablet RxNorm: 494793 1/2 Tablet(s) Oral QD 03/10/20 22 023 Inactive Shingrix (PF) 50 mcg/0.5 mL intramuscular suspension, kit RxNorm: 3429202 Administer 1/2 Milliliter(s) Intramuscular QD one time shingrix step 2 ( step 1 given 11/04/21) WITH needle - Nursing please administer upon arrival and once administered post a bridge message 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, 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, 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, and lot# so we can update [facility] 02/18/20 22 022 Inactive dispense with needle Shingrix (PF) 50 mcg/0.5 mL intramuscular suspension, kit RxNorm: 9693483 Administer 1/2 Milliliter(s) Intramuscular QD one time shingrix step 2 ( step 1 given 11/04/21) WITH needle - Nursing please administer upon arrival and once administered post a bridge message with 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, 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, expiration date, and lot# so we can update [facility] 02/18/20 22 022 Inactive dispense with needle polyethylene glycol 3350 17 gram/dose oral powder RxNorm: 850619 Take 17=1 capful Gram(s) Oral QD mix with 4-8oz of liquid 01/08/20 22 023 Inactive take this in addition to BID prn order Lyrica 100 mg capsule RxNorm: 250235 Take 1 Capsule(s) Oral QAM every morning 01/08/20 22 022 Inactive d/c 50mg dose acetaminophen 500 mg tablet RxNorm: 284115 Take 1 Tablet(s) Oral TID 01/08/20 22 022 Inactive d/c PRN order Lyrica 150 mg capsule RxNorm: 641968 Take 1 Capsule(s) Oral QHS every night at bedtime 01/08/20 22 023 Inactive d/c 100mg dose Abilify 5 mg tablet RxNorm: 920958 Take 1 Tablet(s) Oral QD take 1 tab po QD #30 refill 5 dx: MDD 12/12/19 22 022 Inactive Abilify 5 mg tablet RxNorm: 879824 Take 1 Tablet(s) Oral QD take 1 tab po QD #30 refill 5 dx: MDD 12/12/19 22 022 Inactive Novolog Flexpen U-100 Insulin aspart 100 unit/mL (3 mL) subcutaneous RxNorm: 1308346 Inject 42 Unit(s) Subcutaneous TID in addition to sliding scale 12/10/19 22 Inactive d/c 36u chlorthalidone 25 mg tablet RxNorm: 234157 Take 1 Tablet(s) Oral QAM every morning 12/10/19 22 023 Inactive pregabalin 50 mg capsule RxNorm: 253435 Take 1 Capsule(s) Oral QAM every morning 11/12/19 22 022 Inactive tetanus-diphtheria toxoids-Td 2 Lf unit-2 Lf unit/0.5 mL IM suspension RxNorm: 139 Take 0.5 Miscellaneous Intramuscular 11/12/19 022 Inactive need tdap - nursing to administer upon arrival pregabalin 50 mg capsule RxNorm: 220559 Take 1 Capsule(s) Oral QAM every morning 10/16/19 022 Inactive pregabalin 50 mg capsule RxNorm: 928773 Take 1 Capsule(s) Oral QAM every morning 10/16/19 22 022 Inactive pregabalin 50 mg capsule RxNorm: 534200 1 Capsule(s) Oral QAM every morning 10/15/19 22 022 Inactive Shingrix (PF) 50 mcg/0.5 mL intramuscular suspension, kit RxNorm: 1501404 Administer 1/2 Milliliter(s) Intramuscular one time Nursing please administer upon arrival and once administered post a bridge message with 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 10/09/19 22 022 Inactive shingrix step 1 cholecalciferol (vitamin D3) 1,250 mcg (50,000 unit) capsule RxNorm: 532417 Take 1 Capsule(s) Oral QW once a [...] aspart 100 unit/mL (3 mL) subcutaneous RxNorm: 1538327 Inject 10 Unit(s) Subcutaneous QHS every night at bedtime with nighttime snack 10/08/19 22 Inactive Shingrix (PF) 50 mcg/0.5 mL intramuscular suspension, kit RxNorm: 1621207 ADMINISTER 2-DOSE SERIES PER CDC GUIDELINES 10/08/19 22 Active Shingrix (PF) 50 mcg/0.5 mL intramuscular suspension, kit RxNorm: 4170638 ADMINISTER 2-DOSE SERIES PER CDC GUIDELINES 10/08/19 22 Inactive Novolog Flexpen U-100 Insulin aspart 100 unit/mL (3 mL) subcutaneous RxNorm: 8232841 Inject 36 Unit(s) Subcutaneous TID in addition to sliding scale 10/08/19 22 Inactive Novofine Autocover 30 gauge x 1/3 needle RxNorm: Use 1 Miscellaneous UD as directed Use 1 needle as directed to administer insulin 5 times a day Dx:E11.42. 10/03/19 22 Inactive ok to substitute with any covered alternative pen needle benzoyl peroxide 10 % topical cleanser RxNorm: 333380 Apply 1 Application Topical QD apply to face, wash rinse and dry once daily (may change to QOD if drying) 08/19/19 22 Inactive (%covered by insurance) #60ml refill 11 dx: acne benzoyl peroxide 10 % topical cleanser RxNorm: 057868 Apply 1 Application Topical QD apply to face, wash rinse and dry once daily (may change to QOD if drying) 08/19/19 22 022 Inactive (%covered by insurance) #60ml refill 11 dx: acne benzoyl peroxide 10 % topical cleanser RxNorm: 923146 Apply 1 Application Topical QD apply to face, wash rinse and dry once daily (may change to QOD if drying) 08/19/19 22 022 Inactive (%covered by insurance) #60ml refill 11 dx: acne Lyrica 50 mg capsule RxNorm: 646361 Take 1 Capsule(s) Oral QAM every morning Take 1 capsule by mouth once daily 08/19/19 022 Inactive benzoyl peroxide 10 % topical cleanser RxNorm: 645405 Apply 1 Application Topical QD apply to face, wash rinse and dry once daily (may change to QOD if drying) 08/19/19 22 022 Inactive (%covered by insurance) #60ml refill 11 dx: acne Lyrica 100 mg capsule RxNorm: 123931 Take 1 Capsule(s) Oral QHS every night at bedtime Take 1 capsule by mouth once daily at bedtime 08/19/19 022 Inactive Lyrica 100 mg capsule RxNorm: 625566 Take 1 Capsule(s) Oral QHS every night at bedtime Take 1 capsule by mouth once daily at bedtime 08/16/19 Inactive Lyrica 50 mg capsule RxNorm: 704664 Take 1 Capsule(s) Oral QAM every morning Take 1 capsule by mouth once daily 08/16/19 Inactive Levemir FlexTouch U-100 Insulin 100 unit/mL (3 mL) subcutaneous pen RxNorm: 618855 Inject 86 Unit(s) Subcutaneous BID 08/05/19 22 Inactive d/c 83units BID Lyrica 100 mg capsule RxNorm: 992173 Take 1 Capsule(s) Oral QHS every night at bedtime Take 1 capsule by mouth once daily at bedtime 07/14/19 22 022 Inactive Lyrica 50 mg capsule RxNorm: 561589 Take 1 Capsule(s) Oral QAM every morning Take 1 capsule by mouth once daily 07/14/19 Inactive Levemir FlexTouch U-100 Insulin 100 unit/mL (3 mL) subcutaneous pen RxNorm: 471159 Inject 83 Unit(s) Subcutaneous BID 07/08/19 22 [...] test strip hydralazine 50 mg tablet RxNorm: 665328 Take 1 Tablet(s) Oral QID 05/05/20 21 022 Inactive venlafaxine ER 225 mg tablet,extended release 24 hr RxNorm: 084222 Take 1 Tablet(s) Oral QD 05/05/20 21 021 Inactive venlafaxine ER 225 mg tablet,extended release 24 hr RxNorm: 717969 Take 1 Tablet(s) Oral QD 05/05/20 022 Inactive isosorbide mononitrate ER 30 mg tablet,extended release 24 hr RxNorm: 539073 Take 1 Tablet(s) Oral QD 05/05/20 024 Inactive hydralazine 50 mg tablet RxNorm: 695166 Take 1 Tablet(s) Oral QID 05/05/20 21 021 Inactive aspirin 81 mg tablet,delayed release RxNorm: 092715 Take 1 Tablet(s) Oral QD 03/31/20 022 Inactive Vitamin D2 1,250 mcg (50,000 unit) capsule RxNorm: 8312362 Take 1 Capsule(s) Oral QW once a week x 12 weeks 03/31/20 022 Inactive Vitamin D2 1,250 mcg (50,000 unit) capsule RxNorm: 0671380 Take 1 Capsule(s) Oral QW once a week 03/31/20 021 Inactive Zetia 10 mg tablet RxNorm: 936636 Take 1 Tablet(s) Oral QD 03/31/20 024 Inactive Zetia 10 mg tablet RxNorm: 750201 Take 1 Tablet(s) Oral QD 03/31/20 021 Inactive hydralazine 25 mg tablet RxNorm: 596091 Take 1 Tablet(s) Oral QID 03/31/20 021 Inactive hydralazine 25 mg tablet RxNorm: 530654 Take 1 Tablet(s) Oral QID 03/31/20 021 Inactive hydralazine 10 mg tablet RxNorm: 254020 Take 1 Tablet(s) Oral QID 03/03/20 21 021 Inactive cephalexin 500 mg tablet RxNorm: 597528 Take 1 Tablet(s) Oral QID 02/27/20 021 Inactive cephalexin 500 mg tablet RxNorm: 586341 Take 1 Tablet(s) Oral QID 02/27/20 021 Inactive lisinopril 40 mg tablet RxNorm: 499742 Take 1 Tablet(s) Oral QD 02/11/20 023 Inactive Eliquis 5 mg tablet RxNorm: 1615746 Take 1 Tablet(s) Oral BID 01/05/20 21 022 Inactive Eliquis 5 mg tablet RxNorm: 1180746 Take 2 Tablet(s) Oral QD 01/01/20 21 021 Inactive Lyrica 50 mg capsule RxNorm: 395098 Take 1 Capsule(s) Oral QAM every morning 12/24/19 021 Inactive Lyrica 100 mg capsule RxNorm: 741470 Take 1 Capsule(s) Oral QHS every night at bedtime 12/24/19 021 Inactive clotrimazole 1 % topical cream RxNorm: 408868 Apply to right foot and toes Topical BID 12/04/19 21 023 Inactive metoprolol succinate ER 200 mg tablet,extended release 24 hr RxNorm: 528680 Take 1 Tablet(s) Oral QD 12/04/19 023 Inactive ciprofloxacin 500 mg tablet RxNorm: 702520 Take 1 Tablet(s) Oral QD 11/30/19 021 Inactive DX ofloxacin otic drops Accu-Chek Guide test strips RxNorm: USE 1 TO CHECK GLUCOSE 4 TIMES DAILY AND NEEDED 11/15/19 023 Inactive Blood Glucose Test strips RxNorm: Use 1 Test Strip QID at PRN 11/05/19 21 023 Inactive E11.42 lisinopril 30 mg tablet RxNorm: 721104 Take 1 Tablet(s) Oral QD 10/30/19 021 Inactive lisinopril 20 mg tablet RxNorm: 248168 Take 1 Tablet(s) Oral QD 10/23/19 21 021 Inactive lisinopril 20 mg tablet RxNorm: 058958 Take 1 Tablet(s) Oral QD 10/23/19 21 021 Inactive lisinopril 10 mg tablet RxNorm: 583717 Take 1 Tablet(s) Oral QD 10/02/19 21 021 Inactive icosapent ethyl 1 gram capsule RxNorm: 4697557 Take 2 Capsule(s) (2 gm) Oral BID with meals 09/12/19 21 024 Inactive Okay to dispense one 2gm tab if you have that available. icosapent ethyl 1 gram capsule RxNorm: 3824823 Take 2 Capsule(s) Oral BID 09/12/19 21 021 Inactive Okay to dispense one 2gm tab if you have that available. amlodipine 10 mg tablet RxNorm: 458089 Take 1 Tablet(s) Oral QD 09/04/19 022 Inactive aspirin 81 mg tablet,delayed release RxNorm: 346596 Take 1 Tablet(s) Oral QD 09/04/19 21 021 Inactive Levemir FlexTouch U-100 Insulin 100 unit/mL (3 mL) subcutaneous pen RxNorm: 725674 Inject 150 Unit(s) Subcutaneous BID 09/04/19 022 Inactive venlafaxine ER 150 mg tablet,extended release 24 hr RxNorm: 844164 Take 1 Tablet(s) Oral QD 09/04/19 21 021 Inactive clotrimazole-betame thasone 1 %-0.05 % topical cream RxNorm: 316061 Apply to rash on red area on left abdomen/chest Topical BID 08/10/19 21 Inactive amlodipine 5 mg tablet RxNorm: 567854 Take 1 Tablet(s) Oral QD 07/31/19 21 021 Inactive cephalexin 500 mg tablet RxNorm: 704472 Take 1 Tablet(s) Oral BID BID - Twice Daily 07/31/19 21 021 Inactive Start 08/01/20 pantoprazole 40 mg tablet,delayed release RxNorm: 256977 Take 1 Tablet(s) Oral QAM every morning 07/08/19 022 Inactive senna 8.6 mg tablet RxNorm: 489959 Take 1 Tablet(s) Oral QD 07/08/19 21 022 Inactive carbamazepine 200 mg tablet RxNorm: 895203 Take 1 Tablet(s) Oral BID 07/08/19 022 Inactive clopidogrel 75 mg tablet RxNorm: 761521 Take 1 Tablet(s) Oral QD 07/08/19 021 Inactive Blood Glucose Test strips RxNorm: Use 1 Test Strip QID at PRN 07/08/19 21 Inactive E11.42 Novolog Flexpen U-100 Insulin aspart 100 unit/mL (3 mL) subcutaneous RxNorm: 5195747 Administer per sliding scale Milliliter(s) Subcutaneous TID 151-200: 10 u; 201-250: 20 u; 251-300: 30 u; 301-350: 40 u; 351-400: 50 u. 07/08/19 21 022 Inactive lisinopril 5 mg tablet RxNorm: 228215 Take 1 Tablet(s) Oral QD 07/08/19 021 Inactive Novolog Flexpen U-100 Insulin aspart 100 unit/mL (3 mL) subcutaneous RxNorm: 0730708 Inject 85 Unit(s) Subcutaneous TID 07/08/19 022 Inactive pravastatin 80 mg tablet RxNorm: 573139 Take 1 Tablet(s) Oral QHS every night at bedtime 07/08/19 023 Inactive clotrimazole 1 % topical cream RxNorm: 058862 Apply to bilateral groin areas Topical BID 07/08/19 022 Inactive metoprolol succinate ER 200 mg tablet,extended release 24 hr RxNorm: 031680 Take 1 Tablet(s) Oral QD 07/08/19 Inactive Vitamin D3 25 mcg (1,000 unit) tablet RxNorm: 922896 Take 1 Tablet(s) Oral QD 07/08/19 021 Inactive isosorbide dinitrate 30 mg tablet RxNorm: 247864 Take 1 Tablet(s) Oral QD 07/08/19 21 021 Inactive Levemir FlexTouch U-100 Insulin 100 unit/mL (3 mL) subcutaneous pen RxNorm: 636595 Inject 140 Unit(s) Subcutaneous BID 07/08/19 021 Inactive torsemide 20 mg tablet RxNorm: 752471 Take 1 Tablet(s) Oral QD 07/08/19 21 023 Inactive venlafaxine 75 mg tablet RxNorm: 421998 Take 1 Tablet(s) Oral QD 07/08/19 21 021 Inactive acetaminophen 500 mg tablet RxNorm: 973056 Take 1 Tablet(s) Oral TID as needed for headache 06/18/19 21 021 Inactive acetaminophen 500 mg tablet RxNorm: 746415 Take 1 Tablet(s) Oral TID as needed for headache 06/18/19 21 021 Inactive Lyrica 100 mg capsule RxNorm: 573031 Take 1 Capsule(s) Oral QHS every night at bedtime 06/11/19 21 021 Inactive Lyrica 50 mg capsule RxNorm: 493904 Take 1 Capsule(s) Oral QAM every morning 06/10/19 21 021 Inactive hydrocortisone 2.5 % topical cream RxNorm: 192294 Apply to bilateral groin creases Topical BID 05/15/20 20 021 Inactive clotrimazole 1 % topical cream RxNorm: 404770 Apply to bilateral groin areas Topical BID 05/15/20 20 021 Inactive Lyrica 50 mg capsule RxNorm: 920718 Take 1 Capsule(s) Oral QAM every morning 05/14/20 20 020 Inactive Lyrica 100 mg capsule RxNorm: 323959 Take 1 Capsule(s) Oral QHS every night [...] Inactive Nystop 100,000 unit/gram topical powder RxNorm: 122762 Apply to abd folds, under breasts and L side of groin Topical BID x 14 days, then BID PRN 04/08/20 20 Inactive dx: yeast dermatitis Lyrica 100 mg capsule RxNorm: 283390 Take 1 Capsule(s) Oral QHS every night at bedtime 03/13/20 20 Inactive Lyrica 50 mg capsule RxNorm: 683437 Take 1 Capsule(s) Oral QAM every morning 03/13/20 20 Inactive ketoconazole 2 % shampoo RxNorm: 822693 Apply Topical two times a week with showers 03/11/20 20 Inactive cholecalciferol (vitamin D3) 50 mcg (2,000 unit) tablet RxNorm: 421654 Take 1 Tablet(s) Oral QD 03/11/20 20 021 Inactive Zetia 10 mg tablet RxNorm: 141647 Take 1 Tablet(s) Oral QD 03/07/20 20 021 Inactive Zetia 10 mg tablet RxNorm: 673926 Take 1 Tablet(s) Oral QD 03/07/20 20 Inactive Lyrica 50 mg capsule RxNorm: 358800 Take 1 Capsule(s) Oral QAM every morning 02/15/20 20 Inactive Lyrica 100 mg capsule RxNorm: 599822 Take 1 Capsule(s) Oral QHS every night at bedtime 02/15/20 20 Inactive Lyrica 100 mg capsule RxNorm: 782418 Take 1 Capsule(s) Oral QHS every night at bedtime 02/15/20 20 Inactive Lyrica 50 mg capsule RxNorm: 781971 Take 1 Capsule(s) Oral QAM every morning 02/15/20 20 Inactive metoprolol succinate ER 200 mg tablet,extended release 24 hr RxNorm: 789436 Take 1 Tablet(s) Oral QD 03/28/20 23 Active loperamide 2 mg capsule RxNorm: 303726 Take 1 Capsule(s) Oral QID as needed 06/12/19 22 Active hydralazine 50 mg tablet RxNorm: 921325 Take 1 Tablet(s) Oral QID 08/12/19 23 Active venlafaxine ER 75 mg capsule,extended release 24 hr RxNorm: 351950 Take 3 Capsule(s) Oral QD 06/12/19 22 023 Inactive polyethylene glycol 3350 17 gram/dose oral powder RxNorm: 011173 Take 17=1 capful Gram(s) Oral BID as needed mix with 4-8oz of liquid 06/12/19 22 024 Inactive icosapent ethyl 1 gram capsule RxNorm: 6317921 Take 2 Capsule(s) (2 gm) Oral BID with meals 10/07/19 23 023 Inactive Okay to dispense one 2gm tab if you have that available. Levemir FlexTouch U-100 Insulin 100 unit/mL (3 mL) subcutaneous pen RxNorm: 147287 Inject 80 Unit(s) Subcutaneous BID 07/14/19 23 023 Inactive Novolog Flexpen U-100 Insulin aspart 100 unit/mL (3 mL) subcutaneous RxNorm: 3214492 Insert 30 Unit(s) Subcutaneous TID with meals 10/08/19 22 022 Inactive Medication Administered No Medication Administered data Reason For Visit No Reason For Visit data Plan of Care Planned Activity Notes Codes Status Date Patient Education: Patient Medication Summary Completed 11/29/2023 Appointment: Sandra Clark WPtel: [address] [place], [place] [phone] Telehealth Psych Follow Up 12/09 Appointment: Tapan Shirley WPtel: [phone] [facility] 10/26/2022 Referral: [facility] WPtel: [address], [address] Referral Records Received 09/21/2022 Appointment: Tapan Shirley WPtel: [address] [facility] [address] [id number] [place] F/U 08/11/2022 Appointment: Tapan Shirley WPtel: [address] [facility] [address] [id number] [place] F/U 07/14/2022 Appointment: Tapan Shirley WPtel: [address] [facility] [address] [id number] [place] F/U 02/10/2022 Referral: [facility] WPtel: [address] [facility] [address] [id number] [place] Referral Completed 05/28/2021 Referral: General Cardiology [...] Sister Jyotsna involved in his care cell# [phone] Guardian: Giulia (tapan met in person 09/01/21), now has Lexii (same group as giulia)Lab Schedule: /September*September (CBC with diff, CMP, A1c) March: (CBC, CMP, A1c, Lipids, VitD)5..2023: CBC, CMP Na 139, K2.6L, creat 1.45H, [...] note from 11.08.2023 at [facility] (follow up 6 months) 12/14/2023
--- OUTSIDE RECORDS SUMMARY | 2023-12-27 07:08 | XMS_ITS | CCD ---
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 Slitter Operator Name Role Phone Ionia WIREWORKER-C, Harrison Primary Care Provider Leona vailable Arpit WIREWORKER-C, Harrison Chronic Care Management U navailable Summary Purpose DataExchange Insurance Providers Payer name Policy type / Coverage type Covered republican ID Effective Begin Date Effective End Date [place] Part B [id number] Unknown Unknown [place] Medicare Part B [id number] Unknown Unknown Family history Sister Brittany Suggs [...] Home 09/03/[address]: 6323413 Non-Smoker / No History of Smoking 09/02/[address]: 961067892 No Alcohol Consum ption 09/02/2020 Allergies, Adverse Reactions, Alerts Substance Reaction Codes Entered Date Inactivated Date Status * NO KNOWN FOOD ALLERGIES Unknown 07/13/2023 No Inactive Date Active LISINOPRIL RxNorm: 45823 02/12/2020 No Inactive Da te Active Metformin [...] E78. 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, angina presence unspecified ICD-10: I25.10 ICD-9: [...] Fill Instructions acetaminophen 500 mg tablet RxNorm: 040946 (MAX APAP:4GM/24HR) Take 1 Tablet(s) Oral TID as needed for pain 12/10/19 24 Active torsemide 20 mg tablet RxNorm: 941561 Take 1 Tablet(s) Oral QD 10/26/19 24 Inactive potassium chloride ER 20 mEq tablet,extended release RxNorm: 19800522 Take 2 Tablet(s) Oral BID 10/26/19 24 Active torsemide 20 mg tablet RxNorm: 340259 Take 1 Tablet(s) Oral QD 10/26/19 24 Inactive potassium chloride ER 20 mEq tablet,extended release RxNorm: 19800522 Take 2 Tablet(s) Oral BID 10/26/19 24 Inactive Artificial Tears (PF) 0.1 %-0.3 % drops in a dropperette RxNorm: 275951 Apply 1-2 Drop(s) Both eyes BID as needed 09/28/19 24 025 Active erythromycin 5 mg/gram (0.5 %) eye ointment RxNorm: 134463 Apply 1 Application Both eyes QHS every night at bedtime Instill ~1 cm ribbon into affected eye 09/28/19 24 024 Inactive Artificial Tears (PF) 0.1 %-0.3 % drops in a dropperette RxNorm: 091541 Apply 1-2 Drop(s) Both eyes BID as needed 09/28/19 24 024 Inactive erythromycin 5 mg/gram (0.5 %) eye ointment RxNorm: 708249 Apply 1 Application Both eyes QHS every night at bedtime Instill ~1 cm ribbon into affected eye 09/28/19 24 Inactive acetaminophen 500 mg tablet RxNorm: 081078 (MAX APAP:4GM/24HR) Take 1 Tablet(s) Oral TID as needed for pain 09/24/19 24 024 Inactive carvedilol 25 mg tablet RxNorm: 336609 Take 1 Tablet(s) Oral QD 09/08/19 24 No Stop Date Active pregabalin 100 mg capsule RxNorm: 940397 Take 1 Capsule(s) Oral QAM every morning 09/07/19 24 024 Active rosuvastatin 40 mg tablet RxNorm: 875087 Take 1 Tablet(s) Oral QPM every evening 07/13/19 24 No Stop Date Active ezetimibe 10 mg tablet RxNorm: 696550 Take 1 Tablet(s) Oral QD 07/13/19 24 No Stop Date Active bisacodyl 10 mg rectal suppository RxNorm: 850867 Insert 1 Suppository Rectal QD as needed 07/13/19 24 No Stop Date Active polyethylene glycol 3350 17 gram/dose oral powder RxNorm: 878800 Take 17 Gram(s) Oral BID as needed mix in 4-8ox water 07/13/19 24 No Stop Date Active ketoconazole 2 % shampoo RxNorm: 322295 Apply 1 Application Topical UD as directed 07/13/19 24 No Stop Date Active aripiprazole 15 mg tablet RxNorm: 635991 Take 1/2 Tablet(s) Oral QD 07/13/19 24 No Stop Date Active Ozempic 1 mg/dose (4 mg/3 mL) subcutaneous pen injector RxNorm: 3397741 Inject 1 Milligram(s) Subcutaneous QW once a week 07/13/19 24 No Stop Date Active Guaifenesin AC 10 mg-100 mg/5 mL oral liquid RxNorm: 280184 Take 10 Milliliter(s) Oral Q4H every four hours as needed 07/13/19 24 No Stop Date Active isosorbide mononitrate ER 60 mg tablet,extended release 24 hr RxNorm: 715759 Take 1 Tablet(s) Oral QD 07/13/19 24 No Stop Date Active ammonium lactate 12 % topical cream RxNorm: 839998 Apply 1 Application Topical BID 07/13/19 24 No Stop Date Active hydrocortisone 2.5 % topical cream RxNorm: 663978 Apply 1 Application Topical BID as needed 07/13/19 24 No Stop Date Active rosuvastatin 20 mg sprinkle capsule RxNorm: 4036103 Take 1 Capsule(s) Oral QD 07/13/19 24 No Stop Date Active Vascepa 1 gram capsule RxNorm: 0634329 Take 2 Capsule(s) Oral BID 07/13/19 24 No Stop Date Active venlafaxine ER 75 mg capsule,extended release 24 hr RxNorm: 207507 Take 3 Capsule(s) Oral QD 07/13/19 24 No Stop Date Active Basaglar KwikPen U-100 Insulin 100 unit/mL (3 mL) subcutaneous RxNorm: 6172474 Inject 30U SubQ twice daily 07/07/19 24 025 Active Please dispense one month supply. Basaglar KwikPen U-100 Insulin 100 unit/mL (3 mL) subcutaneous RxNorm: 0221116 Inject 30U SubQ twice daily 07/07/19 24 024 Inactive Please dispense one month supply. pregabalin 150 mg capsule RxNorm: 672384 Take 1 Capsule(s) Oral QHS every night at bedtime 07/05/19 24 024 Active pregabalin 150 mg capsule RxNorm: 976411 Take 1 Capsule(s) Oral QHS every night at bedtime 07/05/19 24 024 Inactive polyethylene glycol 3350 17 gram/dose oral powder RxNorm: 996715 Take 1 Packet Oral QD as needed (1 packet = 17g) mix with 4-8oz of liquid 06/15/19 24 024 Inactive bisacodyl 10 mg rectal suppository RxNorm: 031371 Insert one suppository per rectum once daily as needed for constipation 06/15/19 24 024 Inactive bisacodyl 10 mg rectal suppository RxNorm: 598249 Insert one suppository per rectum once daily as needed for constipation 06/15/19 24 024 Inactive pregabalin 100 mg capsule RxNorm: 149641 Take 1 Capsule(s) Oral QAM every morning 04/27/20 23 024 Inactive Levemir FlexPen 100 unit/mL (3 mL) solution subcutaneous insulin pen RxNorm: 866241 Inject 30 Unit(s) Subcutaneous BID 04/27/20 23 024 Inactive rosuvastatin 40 mg tablet RxNorm: 630919 Take 1 Tablet(s) Oral QPM every evening 04/16/20 23 024 Inactive D/C rosuvastatin 20mg venlafaxine ER 75 mg capsule,extended release 24 hr RxNorm: 645999 Take 3 Capsule(s) Oral QD 04/14/20 23 023 Inactive pregabalin 100 mg capsule RxNorm: 242744 Take 1 Capsule(s) Oral QAM every morning [...] meter clotrimazole 1 % topical cream RxNorm: 078950 Take apply topically to abdominal folds twice daily for 14 days 03/12/20 024 Inactive Ozempic 1 mg/dose (4 mg/3 mL) subcutaneous pen injector RxNorm: 6300461 Inject 1 Milligram(s) Subcutaneous QW once a week 03/11/20 23 023 Inactive rosuvastatin 20 mg tablet RxNorm: 567563 Take 1 Tablet(s) Oral QD 02/26/20 23 023 Inactive d/c pravastatin 80mg Ozempic 1 mg/dose (4 mg/3 mL) subcutaneous pen injector RxNorm: 9778393 Inject 1 Milligram(s) Subcutaneous QW once a week 02/20/20 23 023 Inactive pregabalin 150 mg capsule RxNorm: 986946 Take 1 Capsule(s) Oral HS at bed time 02/19/20 23 023 Inactive pregabalin 100 mg capsule RxNorm: 608143 Take 1 Capsule(s) Oral QAM every morning 02/18/20 23 023 Inactive venlafaxine ER 75 mg capsule,extended release 24 hr RxNorm: 820774 Take 3 Capsule(s) Oral QD 02/04/20 23 023 Inactive FreeStyle Chema 2 Sensor kit RxNorm: use as directed 02/04/20 23 023 Inactive FreeStyle Chema 2 Sensor kit RxNorm: use as directed 02/04/20 23 024 Inactive fluconazole 150 mg tablet RxNorm: 485504 Take 1 Tablet(s) Oral on day 3 and on day 6 02/03/20 024 Active chlorthalidone 25 mg tablet RxNorm: 249635 Take 1 Tablet(s) Oral QAM every morning 02/03/20 No Stop Date Active venlafaxine ER 150 mg capsule,extended release 24 hr RxNorm: 126055 Take 1 Capsule(s) Oral QD 02/03/20 23 023 Inactive acetaminophen 500 mg tablet RxNorm: 454847 1 TABLET ORALLY 3 TIMES DAILY (MAX APAP:4GM/24HR) 12/15/19 23 023 Inactive clotrimazole 1 % topical cream RxNorm: 869615 apply 1g topically to top of feet and in between toes BID 12/09/19 23 023 Inactive potassium chloride ER 20 mEq tablet,extended release RxNorm: 272156 Take 1 Tablet(s) Oral BID 12/09/19 23 024 Inactive d/c 20mEq once daily (sent from hospital) nystatin 100,000 unit/gram topical powder RxNorm: 135569 APPLY TO AFFECTED AREAS TOPICALLY 2 TIMES DAILY 11/21/19 23 024 Inactive Nystop 100,000 unit/gram topical powder RxNorm: 825483 Apply to abd folds, under breasts and L side of groin Topical BID x 14 days, then BID PRN 11/20/19 23 023 Inactive dx: yeast dermatitis [place] Ultra Strength 4 %-30 %-10 % topical cream RxNorm: 909115 Apply 1 Gram(s) Topical QID PRN to feet and legs for neuropathic pain 11/11/19 23 024 Inactive clotrimazole 1 % topical cream RxNorm: 222516 Apply 1/2 Gram(s) Topical BID Apply to affected areas of groin, periarea, and abdominal topically 2 times daily 11/10/19 23 023 Inactive hydrocortisone 2.5 % topical cream RxNorm: 578885 Apply 1/2 Gram(s) Topical BID as needed 11/10/19 024 Inactive Humulin R U-500 (Concentrated) Insulin 500 unit/mL subcutaneous soln RxNorm: 039019 Inject 100 Unit(s) Subcutaneous TID 10/07/19 024 Inactive Levemir FlexPen 100 unit/mL (3 mL) solution subcutaneous insulin pen RxNorm: 093072 Inject 30 Unit(s) Subcutaneous BID 10/07/19 023 Inactive Ozempic 0.25 mg or 0.5 mg (2 mg/3 mL) subcutaneous pen injector RxNorm: 1201595 Inject 1/2 Milligram(s) Subcutaneous QW once a week 10/07/19 024 Inactive aripiprazole 15 mg tablet RxNorm: 390889 1/2 TAB (7.5MG) ORALLY DAILY (DX:MAJOR DEPRESSIVE DISORDER) 09/23/19 023 Inactive Lancets,Thin 28 gauge RxNorm: Use 1 as directed QID 09/15/19 23 024 Inactive Accu-Chek Guide test strips RxNorm: Use 1 Test Strip QID 09/15/19 23 023 Inactive ok to substitute with any covered alternative test strip torsemide 20 mg tablet RxNorm: 423525 Take 1 Tablet(s) Oral BID 09/09/19 024 Inactive d/c once daily dosing carvedilol 25 mg tablet RxNorm: 262504 Take 1 Tablet(s) Oral QD 08/25/19 024 Inactive pregabalin 150 mg capsule RxNorm: 356113 1 Capsule(s) Oral HS at bed time 08/18/19 023 Inactive pregabalin 100 mg capsule RxNorm: 921772 1 Capsule(s) Oral QAM every morning 08/18/19 023 Inactive carvedilol 25 mg tablet RxNorm: 632310 1 Tablet(s) Oral QD 07/28/19 023 Inactive lisinopril 20 mg tablet RxNorm: 717651 Give 1 Tablet(s) Oral QD 07/28/19 23 023 Inactive Lyrica 150 mg capsule RxNorm: 522889 Take 1 Capsule(s) Oral QHS every night at bedtime 07/19/19 23 023 Inactive d/c 100mg dose Diflucan 150 mg tablet RxNorm: 228826 Take 1 Tablet(s) Oral QD repeat on day 3 and 6 07/19/19 23 023 Inactive pregabalin 100 mg capsule RxNorm: 969497 Take 1 Capsule(s) Oral QAM every morning 07/19/19 23 023 Inactive gatifloxacin 0.5 % eye drops RxNorm: 397134 Instill 1 Drop(s) as directed TID Instill 1 drop in to affected eye(s) starting 1 day prior to surgery and continue until gone (do not exceed 4 weeks). 07/13/19 23 023 Inactive carvedilol 25 mg tablet RxNorm: 639226 2 Tablet(s) Oral BID 07/13/19 23 023 Inactive Humulin R Regular U-100 Insulin 100 unit/mL injection solution RxNorm: 337897 85 Unit(s) Injection TID 07/13/19 23 023 Inactive ketorolac 0.5 % eye drops RxNorm: 500515 Instill 1 Drop(s) as directed QID Instill 1 drop into affected eye(s) 4 times daily starting 1 day prior to surgery and continue until gone (do not exceed 4 weeks). 07/13/19 023 Inactive Diflucan 150 mg tablet RxNorm: 069207 Take 1 Tablet(s) Oral QD repeat on day 3 and 6 06/30/19 23 023 Inactive Accu-Chek Guide test strips RxNorm: Use 1 Test Strip QID Use 1 test strip to monitor blood glucose 4 times daily and as needed. Dx:E11.42. 06/23/19 23 023 Inactive ok to substitute with any covered alternative test strip dextromethorphan-gu aifenesin 10 mg-100 mg/5 mL oral liquid RxNorm: 620526 Take 10 Milliliter(s) Oral every 4 hours as needed for cough 06/19/19 23 023 Inactive dextromethorphan-gu aifenesin 10 mg-100 mg/5 mL oral liquid RxNorm: 328678 Take 10 Milliliter(s) Oral every 4 hours as needed for cough 06/19/19 023 Inactive Lyrica 150 mg capsule RxNorm: 679227 Take 1 Capsule(s) Oral QHS every night at bedtime 06/18/19 023 Inactive d/c 100mg dose aripiprazole 15 mg tablet RxNorm: 163157 1/2 TAB (7.5MG) ORALLY DAILY (DX:MAJOR DEPRESSIVE DISORDER) 06/05/19 023 Inactive pregabalin 100 mg capsule RxNorm: 215747 1 Capsule(s) Oral QAM every morning 06/02/19 023 Inactive Banophen 50 mg capsule RxNorm: 2151907 Take 1 Capsule(s) Oral Q6H every 6 hours as needed 05/19/19 No Stop Date Active Novolog Flexpen U-100 Insulin aspart 100 unit/mL (3 mL) subcutaneous RxNorm: 5619297 Inject 10 Unit(s) Subcutaneous QHS every night at bedtime with nighttime snack 04/08/20 022 Inactive Novolog Flexpen U-100 Insulin aspart 100 unit/mL (3 mL) subcutaneous RxNorm: 6269397 Inject 42 Unit(s) Subcutaneous TID in addition to sliding scale 04/08/20 022 Inactive d/c 36u albuterol sulfate HFA 90 mcg/actuation aerosol inhaler RxNorm: 4760020 Take 2 Puff(s) Inhalation Q4H every four hours as needed as needed for SOB, cough, or wheezing 04/07/20 030 Active Banophen 50 mg capsule RxNorm: 4777827 Take 1 Capsule(s) Oral Q6H every 6 hours as needed 04/06/20 023 Inactive diphenhydramine 50 mg tablet RxNorm: 4382971 Take 1 Tablet(s) Oral Q6H every 6 hours as needed 04/06/20 022 Inactive diphenhydramine 50 mg tablet RxNorm: 3858291 1 Tablet(s) Oral Q6H every 6 hours as needed 04/06/20 22 022 Inactive Abilify 15 mg tablet RxNorm: 924131 1/2 Tablet(s) Oral QD 03/10/20 22 023 Inactive Shingrix (PF) 50 mcg/0.5 mL intramuscular suspension, kit RxNorm: 7035432 Administer 1/2 Milliliter(s) Intramuscular QD one time shingrix step 2 ( step 1 given 11/04/21) WITH needle - Nursing please administer upon arrival and once administered post a bridge message with date of administration, supervisor model making, expiration date, and lot# so we can update [facility] 02/18/20 22 022 Inactive dispense with needle Shingrix (PF) 50 mcg/0.5 mL intramuscular suspension, kit RxNorm: 7946840 Administer 1/2 Milliliter(s) Intramuscular QD one time shingrix step 2 ( step 1 given 11/04/21) WITH needle - Nursing please administer upon arrival and once administered post a bridge message with date of administration, supervisor model making, expiration date, and lot# so we can update [facility] 02/18/20 22 022 Inactive dispense with needle polyethylene glycol 3350 17 gram/dose oral powder RxNorm: 184661 Take 17=1 capful Gram(s) Oral QD mix with 4-8oz of liquid 01/08/20 22 023 Inactive take this in addition to BID prn order Lyrica 100 mg capsule RxNorm: 413843 Take 1 Capsule(s) Oral QAM every morning 01/08/20 22 022 Inactive d/c 50mg dose acetaminophen 500 mg tablet RxNorm: 518511 Take 1 Tablet(s) Oral TID 01/08/20 22 022 Inactive d/c PRN order Lyrica 150 mg capsule RxNorm: 614629 Take 1 Capsule(s) Oral QHS every night at bedtime 01/08/20 22 023 Inactive d/c 100mg dose Abilify 5 mg tablet RxNorm: 032238 Take 1 Tablet(s) Oral QD take 1 tab po QD #30 refill 5 dx: MDD 12/12/19 22 022 Inactive Abilify 5 mg tablet RxNorm: 773159 Take 1 Tablet(s) Oral QD take 1 tab po QD #30 refill 5 dx: MDD 12/12/19 22 022 Inactive Novolog Flexpen U-100 Insulin aspart 100 unit/mL (3 mL) subcutaneous RxNorm: 8623167 Inject 42 Unit(s) Subcutaneous TID in addition to sliding scale 12/10/19 22 Inactive d/c 36u chlorthalidone 25 mg tablet RxNorm: 969354 Take 1 Tablet(s) Oral QAM every morning 12/10/19 22 023 Inactive pregabalin 50 mg capsule RxNorm: 887302 Take 1 Capsule(s) Oral QAM every morning 11/12/19 22 022 Inactive tetanus-diphtheria toxoids-Td 2 Lf unit-2 Lf unit/0.5 mL IM suspension RxNorm: 139 Take 0.5 Miscellaneous Intramuscular 11/12/19 022 Inactive need tdap - nursing to administer upon arrival pregabalin 50 mg capsule RxNorm: 098376 Take 1 Capsule(s) Oral QAM every morning 10/16/19 022 Inactive pregabalin 50 mg capsule RxNorm: 317307 Take 1 Capsule(s) Oral QAM every morning 10/16/19 22 022 Inactive pregabalin 50 mg capsule RxNorm: 111486 1 Capsule(s) Oral QAM every morning 10/15/19 022 Inactive Shingrix (PF) 50 mcg/0.5 mL intramuscular suspension, kit RxNorm: 1875438 Administer 1/2 Milliliter(s) Intramuscular one time Nursing please administer upon arrival and once administered post a bridge message with date of administration, supervisor model making, expiration date, and lot# so we can update [facility]. 10/09/19 22 022 Inactive shingrix step 1 Shingrix (PF) 50 mcg/0.5 mL intramuscular suspension, kit RxNorm: 5684895 Administer 1/2 Milliliter(s) Intramuscular one time Nursing please administer upon arrival and once administered post a bridge message with date of administration, supervisor model making, expiration date, and lot# so we can update [facility]. 10/09/19 22 022 Inactive shingrix step 1 cholecalciferol (vitamin D3) 1,250 mcg (50,000 unit) capsule RxNorm: 851046 Take 1 Capsule(s) Oral QW once a [...] aspart 100 unit/mL (3 mL) subcutaneous RxNorm: 6566028 Inject 10 Unit(s) Subcutaneous QHS every night at bedtime with nighttime snack 10/08/19 22 Inactive Shingrix (PF) 50 mcg/0.5 mL intramuscular suspension, kit RxNorm: 7246411 ADMINISTER 2-DOSE SERIES PER CDC GUIDELINES 10/08/19 22 Active Shingrix (PF) 50 mcg/0.5 mL intramuscular suspension, kit RxNorm: 9505520 ADMINISTER 2-DOSE SERIES PER CDC GUIDELINES 10/08/19 22 Inactive Novolog Flexpen U-100 Insulin aspart 100 unit/mL (3 mL) subcutaneous RxNorm: 7423700 Inject 36 Unit(s) Subcutaneous TID in addition to sliding scale 10/08/19 22 Inactive Novofine Autocover 30 gauge x 1/3 needle RxNorm: Use 1 Miscellaneous UD as directed Use 1 needle as directed to administer insulin 5 times a day Dx:E11.42. 10/03/19 22 Inactive ok to substitute with any covered alternative pen needle benzoyl peroxide 10 % topical cleanser RxNorm: 338627 Apply 1 Application Topical QD apply to face, wash rinse and dry once daily (may change to QOD if drying) 08/19/19 22 Inactive (%covered by insurance) #60ml refill 11 dx: acne benzoyl peroxide 10 % topical cleanser RxNorm: 359824 Apply 1 Application Topical QD apply to face, wash rinse and dry once daily (may change to QOD if drying) 08/19/19 22 022 Inactive (%covered by insurance) #60ml refill 11 dx: acne benzoyl peroxide 10 % topical cleanser RxNorm: 566935 Apply 1 Application Topical QD apply to face, wash rinse and dry once daily (may change to QOD if drying) 08/19/19 22 022 Inactive (%covered by insurance) #60ml refill 11 dx: acne Lyrica 50 mg capsule RxNorm: 789448 Take 1 Capsule(s) Oral QAM every morning Take 1 capsule by mouth once daily 08/19/19 022 Inactive benzoyl peroxide 10 % topical cleanser RxNorm: 289598 Apply 1 Application Topical QD apply to face, wash rinse and dry once daily (may change to QOD if drying) 08/19/19 22 022 Inactive (%covered by insurance) #60ml refill 11 dx: acne Lyrica 100 mg capsule RxNorm: 223216 Take 1 Capsule(s) Oral QHS every night at bedtime Take 1 capsule by mouth once daily at bedtime 08/19/19 22 022 Inactive Lyrica 100 mg capsule RxNorm: 882324 Take 1 Capsule(s) Oral QHS every night at bedtime Take 1 capsule by mouth once daily at bedtime 08/16/19 22 Inactive Lyrica 50 mg capsule RxNorm: 707922 Take 1 Capsule(s) Oral QAM every morning Take 1 capsule by mouth once daily 08/16/19 22 Inactive Levemir FlexTouch U-100 Insulin 100 unit/mL (3 mL) subcutaneous pen RxNorm: 638412 Inject 86 Unit(s) Subcutaneous BID 08/05/19 22 Inactive d/c 83units BID Lyrica 100 mg capsule RxNorm: 777257 Take 1 Capsule(s) Oral QHS every night at bedtime Take 1 capsule by mouth once daily at bedtime 07/14/19 22 022 Inactive Lyrica 50 mg capsule RxNorm: 502719 Take 1 Capsule(s) Oral QAM every morning Take 1 capsule by mouth once daily 07/14/19 Inactive Levemir FlexTouch U-100 Insulin 100 unit/mL (3 mL) subcutaneous pen RxNorm: 910557 Inject 83 Unit(s) Subcutaneous BID 07/08/19 22 [...] test strip hydralazine 50 mg tablet RxNorm: 614246 Take 1 Tablet(s) Oral QID 05/05/20 21 022 Inactive venlafaxine ER 225 mg tablet,extended release 24 hr RxNorm: 206268 Take 1 Tablet(s) Oral QD 05/05/20 21 021 Inactive venlafaxine ER 225 mg tablet,extended release 24 hr RxNorm: 721098 Take 1 Tablet(s) Oral QD 05/05/20 21 022 Inactive isosorbide mononitrate ER 30 mg tablet,extended release 24 hr RxNorm: 228898 Take 1 Tablet(s) Oral QD 05/05/20 024 Inactive hydralazine 50 mg tablet RxNorm: 634472 Take 1 Tablet(s) Oral QID 05/05/20 21 Inactive aspirin 81 mg tablet,delayed release RxNorm: 711204 Take 1 Tablet(s) Oral QD 03/31/20 022 Inactive Vitamin D2 1,250 mcg (50,000 unit) capsule RxNorm: 9369602 Take 1 Capsule(s) Oral QW once a week x 12 weeks 03/31/20 022 Inactive Vitamin D2 1,250 mcg (50,000 unit) capsule RxNorm: 9045133 Take 1 Capsule(s) Oral QW once a week 03/31/20 021 Inactive Zetia 10 mg tablet RxNorm: 692823 Take 1 Tablet(s) Oral QD 03/31/20 024 Inactive Zetia 10 mg tablet RxNorm: 456701 Take 1 Tablet(s) Oral QD 03/31/20 021 Inactive hydralazine 25 mg tablet RxNorm: 833261 Take 1 Tablet(s) Oral QID 03/31/20 21 021 Inactive hydralazine 25 mg tablet RxNorm: 013799 Take 1 Tablet(s) Oral QID 03/31/20 21 021 Inactive hydralazine 10 mg tablet RxNorm: 481179 Take 1 Tablet(s) Oral QID 03/03/20 21 021 Inactive cephalexin 500 mg tablet RxNorm: 489007 Take 1 Tablet(s) Oral QID 02/27/20 021 Inactive cephalexin 500 mg tablet RxNorm: 330078 Take 1 Tablet(s) Oral QID 02/27/20 21 021 Inactive lisinopril 40 mg tablet RxNorm: 317022 Take 1 Tablet(s) Oral QD 02/11/20 023 Inactive Eliquis 5 mg tablet RxNorm: 4278197 Take 1 Tablet(s) Oral BID 01/05/20 21 022 Inactive Eliquis 5 mg tablet RxNorm: 0370363 Take 2 Tablet(s) Oral QD 01/01/20 21 021 Inactive Lyrica 50 mg capsule RxNorm: 826303 Take 1 Capsule(s) Oral QAM every morning 12/24/19 21 021 Inactive Lyrica 100 mg capsule RxNorm: 969288 Take 1 Capsule(s) Oral QHS every night at bedtime 12/24/19 021 Inactive clotrimazole 1 % topical cream RxNorm: 390592 Apply to right foot and toes Topical BID 12/04/19 21 023 Inactive metoprolol succinate ER 200 mg tablet,extended release 24 hr RxNorm: 670686 Take 1 Tablet(s) Oral QD 12/04/19 023 Inactive ciprofloxacin 500 mg tablet RxNorm: 293872 Take 1 Tablet(s) Oral QD 11/30/19 021 Inactive DX ofloxacin otic drops Accu-Chek Guide test strips RxNorm: USE 1 TO CHECK GLUCOSE 4 TIMES DAILY AND NEEDED 11/15/19 21 023 Inactive Blood Glucose Test strips RxNorm: Use 1 Test Strip QID at PRN 11/05/19 21 023 Inactive E11.42 lisinopril 30 mg tablet RxNorm: 683670 Take 1 Tablet(s) Oral QD 10/30/19 021 Inactive lisinopril 20 mg tablet RxNorm: 826936 Take 1 Tablet(s) Oral QD 10/23/19 21 021 Inactive lisinopril 20 mg tablet RxNorm: 779475 Take 1 Tablet(s) Oral QD 10/23/19 21 021 Inactive lisinopril 10 mg tablet RxNorm: 833315 Take 1 Tablet(s) Oral QD 10/02/19 21 021 Inactive icosapent ethyl 1 gram capsule RxNorm: 5277896 Take 2 Capsule(s) (2 gm) Oral BID with meals 09/12/19 024 Inactive Okay to dispense one 2gm tab if you have that available. icosapent ethyl 1 gram capsule RxNorm: 9189174 Take 2 Capsule(s) Oral BID 09/12/19 21 021 Inactive Okay to dispense one 2gm tab if you have that available. amlodipine 10 mg tablet RxNorm: 267081 Take 1 Tablet(s) Oral QD 09/04/19 21 022 Inactive aspirin 81 mg tablet,delayed release RxNorm: 216069 Take 1 Tablet(s) Oral QD 09/04/19 21 021 Inactive Levemir FlexTouch U-100 Insulin 100 unit/mL (3 mL) subcutaneous pen RxNorm: 241700 Inject 150 Unit(s) Subcutaneous BID 09/04/19 022 Inactive venlafaxine ER 150 mg tablet,extended release 24 hr RxNorm: 261539 Take 1 Tablet(s) Oral QD 09/04/19 21 021 Inactive clotrimazole-betame thasone 1 %-0.05 % topical cream RxNorm: 101073 Apply to rash on red area on left abdomen/chest Topical BID 08/10/19 21 Inactive amlodipine 5 mg tablet RxNorm: 034123 Take 1 Tablet(s) Oral QD 07/31/19 21 021 Inactive cephalexin 500 mg tablet RxNorm: 166575 Take 1 Tablet(s) Oral BID BID - Twice Daily 07/31/19 21 021 Inactive Start 08/01/20 pantoprazole 40 mg tablet,delayed release RxNorm: 420726 Take 1 Tablet(s) Oral QAM every morning 07/08/19 21 022 Inactive senna 8.6 mg tablet RxNorm: 655514 Take 1 Tablet(s) Oral QD 07/08/19 21 022 Inactive carbamazepine 200 mg tablet RxNorm: 558245 Take 1 Tablet(s) Oral BID 07/08/19 022 Inactive clopidogrel 75 mg tablet RxNorm: 990483 Take 1 Tablet(s) Oral QD 07/08/19 021 Inactive Blood Glucose Test strips RxNorm: Use 1 Test Strip QID at PRN 07/08/19 21 Inactive E11.42 Novolog Flexpen U-100 Insulin aspart 100 unit/mL (3 mL) subcutaneous RxNorm: 1773909 Administer per sliding scale Milliliter(s) Subcutaneous TID 151-200: 10 u; 201-250: 20 u; 251-300: 30 u; 301-350: 40 u; 351-400: 50 u. 07/08/19 022 Inactive lisinopril 5 mg tablet RxNorm: 642511 Take 1 Tablet(s) Oral QD 07/08/19 021 Inactive Novolog Flexpen U-100 Insulin aspart 100 unit/mL (3 mL) subcutaneous RxNorm: 2491352 Inject 85 Unit(s) Subcutaneous TID 07/08/19 022 Inactive pravastatin 80 mg tablet RxNorm: 740335 Take 1 Tablet(s) Oral QHS every night at bedtime 07/08/19 023 Inactive clotrimazole 1 % topical cream RxNorm: 799734 Apply to bilateral groin areas Topical BID 07/08/19 022 Inactive metoprolol succinate ER 200 mg tablet,extended release 24 hr RxNorm: 050823 Take 1 Tablet(s) Oral QD 07/08/19 021 Inactive Vitamin D3 25 mcg (1,000 unit) tablet RxNorm: 454401 Take 1 Tablet(s) Oral QD 07/08/19 021 Inactive isosorbide dinitrate 30 mg tablet RxNorm: 967204 Take 1 Tablet(s) Oral QD 07/08/19 021 Inactive Levemir FlexTouch U-100 Insulin 100 unit/mL (3 mL) subcutaneous pen RxNorm: 628515 Inject 140 Unit(s) Subcutaneous BID 07/08/19 021 Inactive torsemide 20 mg tablet RxNorm: 692446 Take 1 Tablet(s) Oral QD 07/08/19 21 023 Inactive venlafaxine 75 mg tablet RxNorm: 970442 Take 1 Tablet(s) Oral QD 07/08/19 21 021 Inactive acetaminophen 500 mg tablet RxNorm: 515617 Take 1 Tablet(s) Oral TID as needed for headache 06/18/19 21 021 Inactive acetaminophen 500 mg tablet RxNorm: 570870 Take 1 Tablet(s) Oral TID as needed for headache 06/18/19 21 021 Inactive Lyrica 100 mg capsule RxNorm: 879111 Take 1 Capsule(s) Oral QHS every night at bedtime 06/11/19 21 021 Inactive Lyrica 50 mg capsule RxNorm: 951277 Take 1 Capsule(s) Oral QAM every morning 06/10/19 21 021 Inactive hydrocortisone 2.5 % topical cream RxNorm: 543152 Apply to bilateral groin creases Topical BID 05/15/20 20 021 Inactive clotrimazole 1 % topical cream RxNorm: 796267 Apply to bilateral groin areas Topical BID 05/15/20 20 021 Inactive Lyrica 50 mg capsule RxNorm: 993276 Take 1 Capsule(s) Oral QAM every morning 05/14/20 20 020 Inactive Lyrica 100 mg capsule RxNorm: 588761 Take 1 Capsule(s) Oral QHS every night [...] Inactive Nystop 100,000 unit/gram topical powder RxNorm: 070324 Apply to abd folds, under breasts and L side of groin Topical BID x 14 days, then BID PRN 04/08/20 20 Inactive dx: yeast dermatitis Lyrica 100 mg capsule RxNorm: 064032 Take 1 Capsule(s) Oral QHS every night at bedtime 03/13/20 20 Inactive Lyrica 50 mg capsule RxNorm: 781604 Take 1 Capsule(s) Oral QAM every morning 03/13/20 20 Inactive ketoconazole 2 % shampoo RxNorm: 573529 Apply Topical two times a week with showers 03/11/20 20 Inactive cholecalciferol (vitamin D3) 50 mcg (2,000 unit) tablet RxNorm: 453591 Take 1 Tablet(s) Oral QD 03/11/20 20 021 Inactive Zetia 10 mg tablet RxNorm: 681876 Take 1 Tablet(s) Oral QD 03/07/20 20 021 Inactive Zetia 10 mg tablet RxNorm: 865628 Take 1 Tablet(s) Oral QD 03/07/20 20 Inactive Lyrica 50 mg capsule RxNorm: 958352 Take 1 Capsule(s) Oral QAM every morning 02/15/20 20 Inactive Lyrica 100 mg capsule RxNorm: 849486 Take 1 Capsule(s) Oral QHS every night at bedtime 02/15/20 20 Inactive Lyrica 100 mg capsule RxNorm: 363757 Take 1 Capsule(s) Oral QHS every night at bedtime 02/15/20 20 Inactive Lyrica 50 mg capsule RxNorm: 103732 Take 1 Capsule(s) Oral QAM every morning 02/15/20 20 Inactive metoprolol succinate ER 200 mg tablet,extended release 24 hr RxNorm: 096915 Take 1 Tablet(s) Oral QD 03/28/20 23 Active loperamide 2 mg capsule RxNorm: 459617 Take 1 Capsule(s) Oral QID as needed 06/12/19 22 Active hydralazine 50 mg tablet RxNorm: 880192 Take 1 Tablet(s) Oral QID 08/12/19 23 Active venlafaxine ER 75 mg capsule,extended release 24 hr RxNorm: 860004 Take 3 Capsule(s) Oral QD 06/12/19 22 023 Inactive polyethylene glycol 3350 17 gram/dose oral powder RxNorm: 414056 Take 17=1 capful Gram(s) Oral BID as needed mix with 4-8oz of liquid 06/12/19 22 024 Inactive icosapent ethyl 1 gram capsule RxNorm: 1627485 Take 2 Capsule(s) (2 gm) Oral BID with meals 10/07/19 23 023 Inactive Okay to dispense one 2gm tab if you have that available. Levemir FlexTouch U-100 Insulin 100 unit/mL (3 mL) subcutaneous pen RxNorm: 923061 Inject 80 Unit(s) Subcutaneous BID 07/14/19 23 023 Inactive Novolog Flexpen U-100 Insulin aspart 100 unit/mL (3 mL) subcutaneous RxNorm: 2835667 Insert 30 Unit(s) Subcutaneous TID with meals 10/08/19 22 022 Inactive Medication Administered No Medication Administered data Reason For Visit No Reason For Visit data Plan of Care Planned Activity Notes Codes Status Date Referral: [facility] WPtel: [phone], [address] [id number] [place] Referral Records Received 09/21/2022 Referral: [facility] WPtel: [phone] [id number] [place] Referral Completed 05/28/2021 Referral: General Cardiology Referral Complet ed 01/03/2021 Referral: General Psychologist Referral Close d Referral: General Psychiatrist Referral Patient/Family Scheduling Appointment Instructions Comment Date Leonid is a Male being seen living at [facility]. Initial [facility] visit 01/2020. PMHx including DMII, CAD w/ 5 stents, Depression, Seizure Disorder and CKD stage 3. He moved into [facility] in 12/2019 but after a hospitalization 05/2021 he moved to [facility] to have closer nursing attention. Sister Jyotsna involved in his care cell# [phone] Guardian: Giulia (tapan met in person 09/01/21), [...] note from 11.08.2023 at [facility] (follow up 6 months) 12/14/2023
--- OUTSIDE RECORDS SUMMARY | 2023-12-27 07:08 | XMS_ITS | CCD ---
Author Name Cecilio Durham feliberto Address [address] [place] [address] Phone Organization [facility] Phone Care Team Providers Care Station Examiner Name Role Phone Harrison Durham Primary Care Provider Leona vailable Harrison Durham Chronic Care Management U navailable Summary Purpose DataExchange Insurance Providers Payer name Policy type / Coverage type Covered libertarian ID Effective Begin Date Effective End Date Medicare [place] Medicare Part B [id number] Unknown Unknown [place] Medicare Part B [id number] Unknown Unknown Family history Sister Brittany Suggs [...] Unknown Fdc 09/03/[address]: 8533393 Non-Smoker / No History of Smoking 09/02/[address]: 146578309 No Alcohol Consum ption 09/02/2020 Allergies, Adverse Reactions, Alerts Substance Reaction Codes Entered Date Inactivated Date Status * NO KNOWN FOOD ALLERGIES Unknown 07/13/2023 No Inactive Date Active LISINOPRIL RxNorm: 67198 02/12/2020 No Inactive Da te Active Metformin [...] 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: Z79.899 [...] 09/07/2023 Resolved 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, angina presence unspecified ICD-10: I25.10 ICD-9: [...] immunization ICD-10: Z23 ICD-9: V03.89 02/10/2022 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 [...] Fill Instructions acetaminophen 500 mg tablet RxNorm: 821763 (MAX APAP:4GM/24HR) Take 1 Tablet(s) Oral TID as needed for pain 12/10/19 24 Active torsemide 20 mg tablet RxNorm: 973740 Take 1 Tablet(s) Oral QD 10/26/19 24 024 Inactive potassium chloride ER 20 mEq tablet,extended release RxNorm: 19800522 Take 2 Tablet(s) Oral BID 10/26/19 24 025 Active torsemide 20 mg tablet RxNorm: 385399 Take 1 Tablet(s) Oral QD 10/26/19 24 Inactive potassium chloride ER 20 mEq tablet,extended release RxNorm: 19800522 Take 2 Tablet(s) Oral BID 10/26/19 24 024 Inactive Artificial Tears (PF) 0.1 %-0.3 % drops in a dropperette RxNorm: 543770 Apply 1-2 Drop(s) Both eyes BID as needed 09/28/19 24 025 Active erythromycin 5 mg/gram (0.5 %) eye ointment RxNorm: 134405 Apply 1 Application Both eyes QHS every night at bedtime Instill ~1 cm ribbon into affected eye 09/28/19 24 024 Inactive Artificial Tears (PF) 0.1 %-0.3 % drops in a dropperette RxNorm: 546447 Apply 1-2 Drop(s) Both eyes BID as needed 09/28/19 24 024 Inactive erythromycin 5 mg/gram (0.5 %) eye ointment RxNorm: 938526 Apply 1 Application Both eyes QHS every night at bedtime Instill ~1 cm ribbon into affected eye 09/28/19 24 024 Inactive acetaminophen 500 mg tablet RxNorm: 302769 (MAX APAP:4GM/24HR) Take 1 Tablet(s) Oral TID as needed for pain 09/24/19 024 Inactive carvedilol 25 mg tablet RxNorm: 575892 Take 1 Tablet(s) Oral QD 09/08/19 24 No Stop Date Active pregabalin 100 mg capsule RxNorm: 601323 Take 1 Capsule(s) Oral QAM every morning 09/07/19 24 024 Active rosuvastatin 40 mg tablet RxNorm: 794474 Take 1 Tablet(s) Oral QPM every evening 07/13/19 24 No Stop Date Active ezetimibe 10 mg tablet RxNorm: 957215 Take 1 Tablet(s) Oral QD 07/13/19 24 No Stop Date Active bisacodyl 10 mg rectal suppository RxNorm: 454989 Insert 1 Suppository Rectal QD as needed 07/13/19 24 No Stop Date Active polyethylene glycol 3350 17 gram/dose oral powder RxNorm: 543799 Take 17 Gram(s) Oral BID as needed mix in 4-8ox water 07/13/19 24 No Stop Date Active ketoconazole 2 % shampoo RxNorm: 959270 Apply 1 Application Topical UD as directed 07/13/19 24 No Stop Date Active aripiprazole 15 mg tablet RxNorm: 030928 Take 1/2 Tablet(s) Oral QD 07/13/19 24 No Stop Date Active Ozempic 1 mg/dose (4 mg/3 mL) subcutaneous pen injector RxNorm: 2692701 Inject 1 Milligram(s) Subcutaneous QW once a week 07/13/19 24 No Stop Date Active Guaifenesin AC 10 mg-100 mg/5 mL oral liquid RxNorm: 848070 Take 10 Milliliter(s) Oral Q4H every four hours as needed 07/13/19 24 No Stop Date Active isosorbide mononitrate ER 60 mg tablet,extended release 24 hr RxNorm: 932483 Take 1 Tablet(s) Oral QD 07/13/19 24 No Stop Date Active ammonium lactate 12 % topical cream RxNorm: 783505 Apply 1 Application Topical BID 07/13/19 24 No Stop Date Active hydrocortisone 2.5 % topical cream RxNorm: 886455 Apply 1 Application Topical BID as needed 07/13/19 24 No Stop Date Active rosuvastatin 20 mg sprinkle capsule RxNorm: 7031649 Take 1 Capsule(s) Oral QD 07/13/19 24 No Stop Date Active Vascepa 1 gram capsule RxNorm: 7119725 Take 2 Capsule(s) Oral BID 07/13/19 24 No Stop Date Active venlafaxine ER 75 mg capsule,extended release 24 hr RxNorm: 100488 Take 3 Capsule(s) Oral QD 07/13/19 24 No Stop Date Active Basaglar KwikPen U-100 Insulin 100 unit/mL (3 mL) subcutaneous RxNorm: 5884162 Inject 30U SubQ twice daily 07/07/19 24 025 Active Please dispense one month supply. Basaglar KwikPen U-100 Insulin 100 unit/mL (3 mL) subcutaneous RxNorm: 3729265 Inject 30U SubQ twice daily 07/07/19 24 024 Inactive Please dispense one month supply. pregabalin 150 mg capsule RxNorm: 810423 Take 1 Capsule(s) Oral QHS every night at bedtime 07/05/19 24 024 Active pregabalin 150 mg capsule RxNorm: 793249 Take 1 Capsule(s) Oral QHS every night at bedtime 07/05/19 24 024 Inactive polyethylene glycol 3350 17 gram/dose oral powder RxNorm: 900613 Take 1 Packet Oral QD as needed (1 packet = 17g) mix with 4-8oz of liquid 06/15/19 24 024 Inactive bisacodyl 10 mg rectal suppository RxNorm: 616342 Insert one suppository per rectum once daily as needed for constipation 06/15/19 24 024 Inactive bisacodyl 10 mg rectal suppository RxNorm: 071294 Insert one suppository per rectum once daily as needed for constipation 06/15/19 24 024 Inactive pregabalin 100 mg capsule RxNorm: 364179 Take 1 Capsule(s) Oral QAM every morning 04/27/20 23 024 Inactive Levemir FlexPen 100 unit/mL (3 mL) solution subcutaneous insulin pen RxNorm: 591630 Inject 30 Unit(s) Subcutaneous BID 04/27/20 23 024 Inactive rosuvastatin 40 mg tablet RxNorm: 296923 Take 1 Tablet(s) Oral QPM every evening 04/16/20 23 024 Inactive D/C rosuvastatin 20mg venlafaxine ER 75 mg capsule,extended release 24 hr RxNorm: 546099 Take 3 Capsule(s) Oral QD 04/14/20 023 Inactive pregabalin 100 mg capsule RxNorm: 474509 Take 1 Capsule(s) Oral QAM every morning [...] meter clotrimazole 1 % topical cream RxNorm: 794797 Take apply topically to abdominal folds twice daily for 14 days 03/12/20 024 Inactive Ozempic 1 mg/dose (4 mg/3 mL) subcutaneous pen injector RxNorm: 8075592 Inject 1 Milligram(s) Subcutaneous QW once a week 03/11/20 023 Inactive rosuvastatin 20 mg tablet RxNorm: 324506 Take 1 Tablet(s) Oral QD 02/26/20 023 Inactive d/c pravastatin 80mg Ozempic 1 mg/dose (4 mg/3 mL) subcutaneous pen injector RxNorm: 0371323 Inject 1 Milligram(s) Subcutaneous QW once a week 02/20/20 23 023 Inactive pregabalin 150 mg capsule RxNorm: 334186 Take 1 Capsule(s) Oral HS at bed time 02/19/20 23 023 Inactive pregabalin 100 mg capsule RxNorm: 487903 Take 1 Capsule(s) Oral QAM every morning 02/18/20 23 023 Inactive venlafaxine ER 75 mg capsule,extended release 24 hr RxNorm: 197134 Take 3 Capsule(s) Oral QD 02/04/20 23 023 Inactive FreeStyle Chema 2 Sensor kit RxNorm: use as directed 02/04/20 23 023 Inactive FreeStyle Chema 2 Sensor kit RxNorm: use as directed 02/04/20 024 Inactive fluconazole 150 mg tablet RxNorm: 761463 Take 1 Tablet(s) Oral on day 3 and on day 6 02/03/20 024 Active chlorthalidone 25 mg tablet RxNorm: 663603 Take 1 Tablet(s) Oral QAM every morning 02/03/20 No Stop Date Active venlafaxine ER 150 mg capsule,extended release 24 hr RxNorm: 055302 Take 1 Capsule(s) Oral QD 02/03/20 023 Inactive acetaminophen 500 mg tablet RxNorm: 819703 1 TABLET ORALLY 3 TIMES DAILY (MAX APAP:4GM/24HR) 12/15/19 23 023 Inactive clotrimazole 1 % topical cream RxNorm: 307319 apply 1g topically to top of feet and in between toes BID 12/09/19 23 023 Inactive potassium chloride ER 20 mEq tablet,extended release RxNorm: 977611 Take 1 Tablet(s) Oral BID 12/09/19 23 024 Inactive d/c 20mEq once daily (sent from hospital) nystatin 100,000 unit/gram topical powder RxNorm: 660111 APPLY TO AFFECTED AREAS TOPICALLY 2 TIMES DAILY 11/21/19 23 024 Inactive Nystop 100,000 unit/gram topical powder RxNorm: 846682 Apply to abd folds, under breasts and L side of groin Topical BID x 14 days, then BID PRN 11/20/19 23 023 Inactive dx: yeast dermatitis Bengay Ultra Strength 4 %-30 %-10 % topical cream RxNorm: 956580 Apply 1 Gram(s) Topical QID PRN to feet and legs for neuropathic pain 11/11/19 23 024 Inactive clotrimazole 1 % topical cream RxNorm: 314318 Apply 1/2 Gram(s) Topical BID Apply to affected areas of groin, periarea, and abdominal topically 2 times daily 11/10/19 23 023 Inactive hydrocortisone 2.5 % topical cream RxNorm: 672153 Apply 1/2 Gram(s) Topical BID as needed 11/10/19 024 Inactive Humulin R U-500 (Concentrated) Insulin 500 unit/mL subcutaneous soln RxNorm: 461675 Inject 100 Unit(s) Subcutaneous TID 10/07/19 024 Inactive Levemir FlexPen 100 unit/mL (3 mL) solution subcutaneous insulin pen RxNorm: 618085 Inject 30 Unit(s) Subcutaneous BID 10/07/19 023 Inactive Ozempic 0.25 mg or 0.5 mg (2 mg/3 mL) subcutaneous pen injector RxNorm: 3247408 Inject 1/2 Milligram(s) Subcutaneous QW once a week 10/07/19 024 Inactive aripiprazole 15 mg tablet RxNorm: 915501 1/2 TAB (7.5MG) ORALLY DAILY (DX:MAJOR DEPRESSIVE DISORDER) 09/23/19 23 023 Inactive Lancets,Thin 28 gauge RxNorm: Use 1 as directed QID 09/15/19 23 024 Inactive Accu-Chek Guide test strips RxNorm: Use 1 Test Strip QID 09/15/19 23 023 Inactive ok to substitute with any covered alternative test strip torsemide 20 mg tablet RxNorm: 053899 Take 1 Tablet(s) Oral BID 09/09/19 024 Inactive d/c once daily dosing carvedilol 25 mg tablet RxNorm: 766816 Take 1 Tablet(s) Oral QD 08/25/19 024 Inactive pregabalin 150 mg capsule RxNorm: 676821 1 Capsule(s) Oral HS at bed time 08/18/19 023 Inactive pregabalin 100 mg capsule RxNorm: 874472 1 Capsule(s) Oral QAM every morning 08/18/19 23 023 Inactive carvedilol 25 mg tablet RxNorm: 406866 1 Tablet(s) Oral QD 07/28/19 23 023 Inactive lisinopril 20 mg tablet RxNorm: 466848 Give 1 Tablet(s) Oral QD 07/28/19 23 023 Inactive Lyrica 150 mg capsule RxNorm: 908181 Take 1 Capsule(s) Oral QHS every night at bedtime 07/19/19 23 023 Inactive d/c 100mg dose Diflucan 150 mg tablet RxNorm: 344840 Take 1 Tablet(s) Oral QD repeat on day 3 and 6 07/19/19 23 023 Inactive pregabalin 100 mg capsule RxNorm: 075093 Take 1 Capsule(s) Oral QAM every morning 07/19/19 023 Inactive gatifloxacin 0.5 % eye drops RxNorm: 342606 Instill 1 Drop(s) as directed TID Instill 1 drop in to affected eye(s) starting 1 day prior to surgery and continue until gone (do not exceed 4 weeks). 07/13/19 23 023 Inactive carvedilol 25 mg tablet RxNorm: 156147 2 Tablet(s) Oral BID 07/13/19 023 Inactive Humulin R Regular U-100 Insulin 100 unit/mL injection solution RxNorm: 174273 85 Unit(s) Injection TID 07/13/19 23 023 Inactive ketorolac 0.5 % eye drops RxNorm: 696181 Instill 1 Drop(s) as directed QID Instill 1 drop into affected eye(s) 4 times daily starting 1 day prior to surgery and continue until gone (do not exceed 4 weeks). 07/13/19 23 023 Inactive Diflucan 150 mg tablet RxNorm: 113128 Take 1 Tablet(s) Oral QD repeat on day 3 and 6 06/30/19 23 023 Inactive Accu-Chek Guide test strips RxNorm: Use 1 Test Strip QID Use 1 test strip to monitor blood glucose 4 times daily and as needed. Dx:E11.42. 06/23/19 23 023 Inactive ok to substitute with any covered alternative test strip dextromethorphan-gu aifenesin 10 mg-100 mg/5 mL oral liquid RxNorm: 780294 Take 10 Milliliter(s) Oral every 4 hours as needed for cough 06/19/19 023 Inactive dextromethorphan-gu aifenesin 10 mg-100 mg/5 mL oral liquid RxNorm: 541618 Take 10 Milliliter(s) Oral every 4 hours as needed for cough 06/19/19 023 Inactive Lyrica 150 mg capsule RxNorm: 616756 Take 1 Capsule(s) Oral QHS every night at bedtime 06/18/19 023 Inactive d/c 100mg dose aripiprazole 15 mg tablet RxNorm: 372433 / TAB (7.5MG) ORALLY DAILY (DX:MAJOR DEPRESSIVE DISORDER) 06/05/19 023 Inactive pregabalin 100 mg capsule RxNorm: 301047 1 Capsule(s) Oral QAM every morning 06/02/19 023 Inactive Banophen 50 mg capsule RxNorm: 8267067 Take 1 Capsule(s) Oral Q6H every 6 hours as needed 05/19/19 23 No Stop Date Active Novolog Flexpen U-100 Insulin aspart 100 unit/mL (3 mL) subcutaneous RxNorm: 8023766 Inject 10 Unit(s) Subcutaneous QHS every night at bedtime with nighttime snack 04/08/20 022 Inactive Novolog Flexpen U-100 Insulin aspart 100 unit/mL (3 mL) subcutaneous RxNorm: 4725200 Inject 42 Unit(s) Subcutaneous TID in addition to sliding scale 04/08/20 022 Inactive d/c 36u albuterol sulfate HFA 90 mcg/actuation aerosol inhaler RxNorm: 6430526 Take 2 Puff(s) Inhalation Q4H every four hours as needed as needed for SOB, cough, or wheezing 04/07/20 030 Active Banophen 50 mg capsule RxNorm: 5132049 Take 1 Capsule(s) Oral Q6H every 6 hours as needed 04/06/20 023 Inactive diphenhydramine 50 mg tablet RxNorm: 5665041 Take 1 Tablet(s) Oral Q6H every 6 hours as needed 04/06/20 22 022 Inactive diphenhydramine 50 mg tablet RxNorm: 2673118 1 Tablet(s) Oral Q6H every 6 hours as needed 04/06/20 22 022 Inactive Abilify 15 mg tablet RxNorm: 047633 1/2 Tablet(s) Oral QD 03/10/20 023 Inactive Shingrix (PF) 50 mcg/0.5 mL intramuscular suspension, kit RxNorm: 6650140 Administer 1/2 Milliliter(s) Intramuscular QD one time shingrix step 2 ( step 1 given 11/04/21) WITH needle - Nursing please administer upon arrival and once administered post a bridge message with date of administration, engine turner, expiration date, and lot# so we can update [facility]IC 02/18/20 22 022 Inactive dispense with needle Shingrix (PF) 50 mcg/0.5 mL intramuscular suspension, kit RxNorm: 2646540 Administer 1/2 Milliliter(s) Intramuscular QD one time shingrix step 2 ( step 1 given 11/04/21) WITH needle - Nursing please administer upon arrival and once administered post a bridge message with date of administration, engine turner, expiration date, and lot# so we can update [facility]IC 02/18/20 22 022 Inactive dispense with needle polyethylene glycol 3350 17 gram/dose oral powder RxNorm: 566594 Take 17=1 capful Gram(s) Oral QD mix with 4-8oz of liquid 01/08/20 22 023 Inactive take this in addition to BID prn order Lyrica 100 mg capsule RxNorm: 114442 Take 1 Capsule(s) Oral QAM every morning 01/08/20 22 022 Inactive d/c 50mg dose acetaminophen 500 mg tablet RxNorm: 604235 Take 1 Tablet(s) Oral TID 01/08/20 22 022 Inactive d/c PRN order Lyrica 150 mg capsule RxNorm: 605621 Take 1 Capsule(s) Oral QHS every night at bedtime 01/08/20 22 023 Inactive d/c 100mg dose Abilify 5 mg tablet RxNorm: 975748 Take 1 Tablet(s) Oral QD take 1 tab po QD #30 refill 5 dx: MDD 12/12/19 22 022 Inactive Abilify 5 mg tablet RxNorm: 334342 Take 1 Tablet(s) Oral QD take 1 tab po QD #30 refill 5 dx: MDD 12/12/19 22 022 Inactive Novolog Flexpen U-100 Insulin aspart 100 unit/mL (3 mL) subcutaneous RxNorm: 1013623 Inject 42 Unit(s) Subcutaneous TID in addition to sliding scale 12/10/19 22 022 Inactive d/c 36u chlorthalidone 25 mg tablet RxNorm: 047865 Take 1 Tablet(s) Oral QAM every morning 12/10/19 22 023 Inactive pregabalin 50 mg capsule RxNorm: 128509 Take 1 Capsule(s) Oral QAM every morning 11/12/19 22 022 Inactive tetanus-diphtheria toxoids-Td 2 Lf unit-2 Lf unit/0.5 mL IM suspension RxNorm: 139 Take 0.5 Miscellaneous Intramuscular 11/12/19 22 022 Inactive need tdap - nursing to administer upon arrival pregabalin 50 mg capsule RxNorm: 590764 Take 1 Capsule(s) Oral QAM every morning 10/16/19 22 022 Inactive pregabalin 50 mg capsule RxNorm: 581316 Take 1 Capsule(s) Oral QAM every morning 10/16/19 22 022 Inactive pregabalin 50 mg capsule RxNorm: 230597 1 Capsule(s) Oral QAM every morning 10/15/19 22 022 Inactive Shingrix (PF) 50 mcg/0.5 mL intramuscular suspension, kit RxNorm: 0088433 Administer 1/2 Milliliter(s) Intramuscular one time Nursing please administer upon arrival and once administered post a bridge message with date of administration, engine turner, expiration date, and lot# so we can update [facility]IC. 10/09/19 22 022 Inactive shingrix step 1 Shingrix (PF) 50 mcg/0.5 mL intramuscular suspension, kit RxNorm: 1331582 Administer 1/2 Milliliter(s) Intramuscular one time Nursing please administer upon arrival and once administered post a bridge message with date of administration, engine turner, expiration date, and lot# so we can update [facility]IC. 10/09/19 22 Inactive shingrix step 1 cholecalciferol (vitamin D3) 1,250 mcg (50,000 unit) capsule RxNorm: 911556 Take 1 Capsule(s) Oral QW once a [...] aspart 100 unit/mL (3 mL) subcutaneous RxNorm: 1441236 Inject 10 Unit(s) Subcutaneous QHS every night at bedtime with nighttime snack 10/08/19 22 Inactive Shingrix (PF) 50 mcg/0.5 mL intramuscular suspension, kit RxNorm: 7509917 ADMINISTER 2-DOSE SERIES PER CDC GUIDELINES 10/08/19 22 Active Shingrix (PF) 50 mcg/0.5 mL intramuscular suspension, kit RxNorm: 3311323 ADMINISTER 2-DOSE SERIES PER CDC GUIDELINES 10/08/19 22 Inactive Novolog Flexpen U-100 Insulin aspart 100 unit/mL (3 mL) subcutaneous RxNorm: 2751036 Inject 36 Unit(s) Subcutaneous TID in addition to sliding scale 10/08/19 22 Inactive Novofine Autocover 30 gauge x 1/3 needle RxNorm: Use 1 Miscellaneous UD as directed Use 1 needle as directed to administer insulin 5 times a day Dx:E11.42. 10/03/19 22 Inactive ok to substitute with any covered alternative pen needle benzoyl peroxide 10 % topical cleanser RxNorm: 982695 Apply 1 Application Topical QD apply to face, wash rinse and dry once daily (may change to QOD if drying) 08/19/19 22 022 Inactive (%covered by insurance) #60ml refill 11 dx: acne benzoyl peroxide 10 % topical cleanser RxNorm: 733209 Apply 1 Application Topical QD apply to face, wash rinse and dry once daily (may change to QOD if drying) 08/19/19 22 022 Inactive (%covered by insurance) #60ml refill 11 dx: acne benzoyl peroxide 10 % topical cleanser RxNorm: 467283 Apply 1 Application Topical QD apply to face, wash rinse and dry once daily (may change to QOD if drying) 08/19/19 22 022 Inactive (%covered by insurance) #60ml refill 11 dx: acne Lyrica 50 mg capsule RxNorm: 475835 Take 1 Capsule(s) Oral QAM every morning Take 1 capsule by mouth once daily 08/19/19 022 Inactive benzoyl peroxide 10 % topical cleanser RxNorm: 336438 Apply 1 Application Topical QD apply to face, wash rinse and dry once daily (may change to QOD if drying) 08/19/19 22 022 Inactive (%covered by insurance) #60ml refill 11 dx: acne Lyrica 100 mg capsule RxNorm: 792680 Take 1 Capsule(s) Oral QHS every night at bedtime Take 1 capsule by mouth once daily at bedtime 08/19/19 22 022 Inactive Lyrica 100 mg capsule RxNorm: 584655 Take 1 Capsule(s) Oral QHS every night at bedtime Take 1 capsule by mouth once daily at bedtime 08/16/19 022 Inactive Lyrica 50 mg capsule RxNorm: 231731 Take 1 Capsule(s) Oral QAM every morning Take 1 capsule by mouth once daily 08/16/19 022 Inactive Levemir FlexTouch U-100 Insulin 100 unit/mL (3 mL) subcutaneous pen RxNorm: 581247 Inject 86 Unit(s) Subcutaneous BID 08/05/19 22 022 Inactive d/c 83units BID Lyrica 100 mg capsule RxNorm: 181357 Take 1 Capsule(s) Oral QHS every night at bedtime Take 1 capsule by mouth once daily at bedtime 07/14/19 Inactive Lyrica 50 mg capsule RxNorm: 194885 Take 1 Capsule(s) Oral QAM every morning Take 1 capsule by mouth once daily 07/14/19 22 Inactive Levemir FlexTouch U-100 Insulin 100 unit/mL (3 mL) subcutaneous pen RxNorm: 982244 Inject 83 Unit(s) Subcutaneous BID 07/08/19 22 [...] test strip hydralazine 50 mg tablet RxNorm: 053771 Take 1 Tablet(s) Oral QID 05/05/20 022 Inactive venlafaxine ER 225 mg tablet,extended release 24 hr RxNorm: 102623 Take 1 Tablet(s) Oral QD 05/05/20 021 Inactive venlafaxine ER 225 mg tablet,extended release 24 hr RxNorm: 926698 Take 1 Tablet(s) Oral QD 05/05/20 022 Inactive isosorbide mononitrate ER 30 mg tablet,extended release 24 hr RxNorm: 936428 Take 1 Tablet(s) Oral QD 05/05/20 024 Inactive hydralazine 50 mg tablet RxNorm: 308737 Take 1 Tablet(s) Oral QID 05/05/20 021 Inactive aspirin 81 mg tablet,delayed release RxNorm: 499790 Take 1 Tablet(s) Oral QD 03/31/20 022 Inactive Vitamin D2 1,250 mcg (50,000 unit) capsule RxNorm: 4342343 Take 1 Capsule(s) Oral QW once a week x 12 weeks 03/31/20 022 Inactive Vitamin D2 1,250 mcg (50,000 unit) capsule RxNorm: 3628113 Take 1 Capsule(s) Oral QW once a week 03/31/20 021 Inactive Zetia 10 mg tablet RxNorm: 573795 Take 1 Tablet(s) Oral QD 03/31/20 024 Inactive Zetia 10 mg tablet RxNorm: 334996 Take 1 Tablet(s) Oral QD 03/31/20 021 Inactive hydralazine 25 mg tablet RxNorm: 817863 Take 1 Tablet(s) Oral QID 03/31/20 021 Inactive hydralazine 25 mg tablet RxNorm: 874660 Take 1 Tablet(s) Oral QID 03/31/20 021 Inactive hydralazine 10 mg tablet RxNorm: 817529 Take 1 Tablet(s) Oral QID 03/03/20 021 Inactive cephalexin 500 mg tablet RxNorm: 122605 Take 1 Tablet(s) Oral QID 02/27/20 021 Inactive cephalexin 500 mg tablet RxNorm: 754887 Take 1 Tablet(s) Oral QID 02/27/20 021 Inactive lisinopril 40 mg tablet RxNorm: 327480 Take 1 Tablet(s) Oral QD 02/11/20 023 Inactive Eliquis 5 mg tablet RxNorm: 7934098 Take 1 Tablet(s) Oral BID 01/05/20 21 022 Inactive Eliquis 5 mg tablet RxNorm: 3214079 Take 2 Tablet(s) Oral QD 01/01/20 21 021 Inactive Lyrica 50 mg capsule RxNorm: 156350 Take 1 Capsule(s) Oral QAM every morning 12/24/19 021 Inactive Lyrica 100 mg capsule RxNorm: 748377 Take 1 Capsule(s) Oral QHS every night at bedtime 12/24/19 021 Inactive clotrimazole 1 % topical cream RxNorm: 594866 Apply to right foot and toes Topical BID 12/04/19 21 023 Inactive metoprolol succinate ER 200 mg tablet,extended release 24 hr RxNorm: 986374 Take 1 Tablet(s) Oral QD 12/04/19 023 Inactive ciprofloxacin 500 mg tablet RxNorm: 665624 Take 1 Tablet(s) Oral QD 11/30/19 021 Inactive DX ofloxacin otic drops Accu-Chek Guide test strips RxNorm: USE 1 TO CHECK GLUCOSE 4 TIMES DAILY AND NEEDED 11/15/19 21 023 Inactive Blood Glucose Test strips RxNorm: Use 1 Test Strip QID at PRN 11/05/19 21 023 Inactive E11.42 lisinopril 30 mg tablet RxNorm: 273637 Take 1 Tablet(s) Oral QD 10/30/19 021 Inactive lisinopril 20 mg tablet RxNorm: 488114 Take 1 Tablet(s) Oral QD 10/23/19 21 021 Inactive lisinopril 20 mg tablet RxNorm: 439670 Take 1 Tablet(s) Oral QD 10/23/19 21 Inactive lisinopril 10 mg tablet RxNorm: 863901 Take 1 Tablet(s) Oral QD 10/02/19 21 021 Inactive icosapent ethyl 1 gram capsule RxNorm: 7881511 Take 2 Capsule(s) (2 gm) Oral BID with meals 09/12/19 21 024 Inactive Okay to dispense one 2gm tab if you have that available. icosapent ethyl 1 gram capsule RxNorm: 1172206 Take 2 Capsule(s) Oral BID 09/12/19 021 Inactive Okay to dispense one 2gm tab if you have that available. amlodipine 10 mg tablet RxNorm: 041748 Take 1 Tablet(s) Oral QD 09/04/19 022 Inactive aspirin 81 mg tablet,delayed release RxNorm: 128263 Take 1 Tablet(s) Oral QD 09/04/19 21 021 Inactive Levemir FlexTouch U-100 Insulin 100 unit/mL (3 mL) subcutaneous pen RxNorm: 274342 Inject 150 Unit(s) Subcutaneous BID 09/04/19 21 022 Inactive venlafaxine ER 150 mg tablet,extended release 24 hr RxNorm: 154992 Take 1 Tablet(s) Oral QD 09/04/19 021 Inactive clotrimazole-betame thasone 1 %-0.05 % topical cream RxNorm: 682189 Apply to rash on red area on left abdomen/chest Topical BID 08/10/19 21 021 Inactive amlodipine 5 mg tablet RxNorm: 820391 Take 1 Tablet(s) Oral QD 07/31/19 21 021 Inactive cephalexin 500 mg tablet RxNorm: 032235 Take 1 Tablet(s) Oral BID BID - Twice Daily 07/31/19 21 021 Inactive Start 08/01/20 pantoprazole 40 mg tablet,delayed release RxNorm: 138650 Take 1 Tablet(s) Oral QAM every morning 07/08/19 21 022 Inactive senna 8.6 mg tablet RxNorm: 086049 Take 1 Tablet(s) Oral QD 07/08/19 21 022 Inactive carbamazepine 200 mg tablet RxNorm: 004964 Take 1 Tablet(s) Oral BID 07/08/19 21 022 Inactive clopidogrel 75 mg tablet RxNorm: 542107 Take 1 Tablet(s) Oral QD 07/08/19 21 021 Inactive Blood Glucose Test strips RxNorm: Use 1 Test Strip QID at PRN 07/08/19 21 021 Inactive E11.42 Novolog Flexpen U-100 Insulin aspart 100 unit/mL (3 mL) subcutaneous RxNorm: 7811613 Administer per sliding scale Milliliter(s) Subcutaneous TID 151-200: 10 u; 201-250: 20 u; 251-300: 30 u; 301-350: 40 u; 351-400: 50 u. 07/08/19 21 022 Inactive lisinopril 5 mg tablet RxNorm: 462411 Take 1 Tablet(s) Oral QD 07/08/19 021 Inactive Novolog Flexpen U-100 Insulin aspart 100 unit/mL (3 mL) subcutaneous RxNorm: 9138381 Inject 85 Unit(s) Subcutaneous TID 07/08/19 022 Inactive pravastatin 80 mg tablet RxNorm: 524407 Take 1 Tablet(s) Oral QHS every night at bedtime 07/08/19 21 023 Inactive clotrimazole 1 % topical cream RxNorm: 655040 Apply to bilateral groin areas Topical BID 07/08/19 21 022 Inactive metoprolol succinate ER 200 mg tablet,extended release 24 hr RxNorm: 885634 Take 1 Tablet(s) Oral QD 07/08/19 21 021 Inactive Vitamin D3 25 mcg (1,000 unit) tablet RxNorm: 071100 Take 1 Tablet(s) Oral QD 07/08/19 21 021 Inactive isosorbide dinitrate 30 mg tablet RxNorm: 960279 Take 1 Tablet(s) Oral QD 07/08/19 21 021 Inactive Levemir FlexTouch U-100 Insulin 100 unit/mL (3 mL) subcutaneous pen RxNorm: 517210 Inject 140 Unit(s) Subcutaneous BID 07/08/19 21 021 Inactive torsemide 20 mg tablet RxNorm: 036776 Take 1 Tablet(s) Oral QD 07/08/19 21 023 Inactive venlafaxine 75 mg tablet RxNorm: 567488 Take 1 Tablet(s) Oral QD 07/08/19 021 Inactive acetaminophen 500 mg tablet RxNorm: 885778 Take 1 Tablet(s) Oral TID as needed for headache 06/18/19 21 021 Inactive acetaminophen 500 mg tablet RxNorm: 289565 Take 1 Tablet(s) Oral TID as needed for headache 06/18/19 021 Inactive Lyrica 100 mg capsule RxNorm: 803381 Take 1 Capsule(s) Oral QHS every night at bedtime 06/11/19 21 021 Inactive Lyrica 50 mg capsule RxNorm: 681773 Take 1 Capsule(s) Oral QAM every morning 06/10/19 21 021 Inactive hydrocortisone 2.5 % topical cream RxNorm: 339937 Apply to bilateral groin creases Topical BID 05/15/20 20 021 Inactive clotrimazole 1 % topical cream RxNorm: 237060 Apply to bilateral groin areas Topical BID 05/15/20 20 021 Inactive Lyrica 50 mg capsule RxNorm: 038859 Take 1 Capsule(s) Oral QAM every morning 05/14/20 20 020 Inactive Lyrica 100 mg capsule RxNorm: 479964 Take 1 Capsule(s) Oral QHS every night [...] Inactive Nystop 100,000 unit/gram topical powder RxNorm: 731118 Apply to abd folds, under breasts and L side of groin Topical BID x 14 days, then BID PRN 04/08/20 20 Inactive dx: yeast dermatitis Lyrica 100 mg capsule RxNorm: 026708 Take 1 Capsule(s) Oral QHS every night at bedtime 03/13/20 20 Inactive Lyrica 50 mg capsule RxNorm: 025142 Take 1 Capsule(s) Oral QAM every morning 03/13/20 20 Inactive ketoconazole 2 % shampoo RxNorm: 742998 Apply Topical two times a week with showers 03/11/20 20 024 Inactive cholecalciferol (vitamin D3) 50 mcg (2,000 unit) tablet RxNorm: 928070 Take 1 Tablet(s) Oral QD 03/11/20 20 021 Inactive Zetia 10 mg tablet RxNorm: 163846 Take 1 Tablet(s) Oral QD 03/07/20 20 021 Inactive Zetia 10 mg tablet RxNorm: 782489 Take 1 Tablet(s) Oral QD 03/07/20 20 Inactive Lyrica 50 mg capsule RxNorm: 786932 Take 1 Capsule(s) Oral QAM every morning 02/15/20 20 Inactive Lyrica 100 mg capsule RxNorm: 658593 Take 1 Capsule(s) Oral QHS every night at bedtime 02/15/20 20 Inactive Lyrica 100 mg capsule RxNorm: 305388 Take 1 Capsule(s) Oral QHS every night at bedtime 02/15/20 20 Inactive Lyrica 50 mg capsule RxNorm: 689610 Take 1 Capsule(s) Oral QAM every morning 02/15/20 20 020 Inactive metoprolol succinate ER 200 mg tablet,extended release 24 hr RxNorm: 840226 Take 1 Tablet(s) Oral QD 08/12/19 23 Active loperamide 2 mg capsule RxNorm: 576631 Take 1 Capsule(s) Oral QID as needed 06/12/19 22 Active hydralazine 50 mg tablet RxNorm: 330474 Take 1 Tablet(s) Oral QID 08/12/19 23 Active venlafaxine ER 75 mg capsule,extended release 24 hr RxNorm: 261914 Take 3 Capsule(s) Oral QD 06/12/19 22 023 Inactive polyethylene glycol 3350 17 gram/dose oral powder RxNorm: 017179 Take 17=1 capful Gram(s) Oral BID as needed mix with 4-8oz of liquid 06/12/19 22 024 Inactive icosapent ethyl 1 gram capsule RxNorm: 2855705 Take 2 Capsule(s) (2 gm) Oral BID with meals 10/07/19 23 023 Inactive Okay to dispense one 2gm tab if you have that available. Levemir FlexTouch U-100 Insulin 100 unit/mL (3 mL) subcutaneous pen RxNorm: 093925 Inject 80 Unit(s) Subcutaneous BID 07/14/19 23 023 Inactive Novolog Flexpen U-100 Insulin aspart 100 unit/mL (3 mL) subcutaneous RxNorm: 3478800 Insert 30 Unit(s) Subcutaneous TID with meals 10/08/19 22 022 Inactive Medication Administered No Medication Administered data Vital Signs Date Vital 12/14/2023 Blood Pressure 1: 136/76 Code: 8480-6 Heart Rate 1: 69 bpm Code: 8867-4 Respiratory Rate: 16 bpm Temperature: 36.7 (C) / 98.0 (F) Reason For Visit No Reason For Visit data Encounters Encounter Performer Location Location Address Codes Date ([address]) Home or Residence Visit Est Pt - [...] Vitamin D deficiency[ICD10: E55.9] Harrison Munson [facility] [place] [address] [place] [address] CPT-4: 77387 12/14/2023 Plan of Care Planned Activity Notes Codes Status Date Appointment: Sandra Clark WPtel: [phone] Telehealth Psych Follow Up 12/09 Appointment: Tapan Shirley WPtel: [phone] [facility] 10/26/2022 Referral: [facility] WPtel: [address] , [address] [id number] [place] Referral Records Received 09/21/2022 Appointment: Tapan Shirley WPtel: [phone] [place] F/U 08/11/2022 Appointment: Tapan Shirley WPtel: [address] [place] F/U 07/14/2022 Appointment: Tapan Shirley WPtel: [address] [facility] [id number] [place] F/U 02/10/2022 Referral: [facility] WPtel: [address] [id number] [place] Referral Completed 05/28/2021 Referral: General Cardiology [...] [facility] hospital to have closer nursing attention. Sister Jyotsna involved in his care cell# [phone] Guardian: Giulia (tapan met in person 09/01/21), [...] Martines note from 11.08.2023 at [facility] (follow up 6 months) 12/14/2023 Hypercoagulable state Monitor for signs and symptoms of thrombus formation. *No S&S present today. Continue Aspirin and Eliquis prescriptions. Constipation by delayed colonic transit Continue miralax and senna daily along with PRN suppositories. Denies recent concerns with bowel movements. Daily BMs reported. Monitor for worsening constipation or loose stools and adjust treatment plan accordingly. Staff to notify [facility] if they see signs of an ileus or bowel obstruction. Vitamin D deficiency 10.15.2023: serum vitamin D (32) Continue supplementation as ordered. Encouragement to spend more time outside as he lives in the basement and does not spend much time outdoors. Hx of deep venous thrombosis DVT of left leg in 2020. Has remained on anticoagulation due to comorbidities increasing his risk for further DVT including sedentary lifestyle, limited mobility, DM2, obesity, hyperlipidemia, and hypertension. Does wear bilateral knee high compression socks daily. Currently taking Aspirin 81 mg QD and Eliquis 5 mg BID. *Continue regimen. Upon assessment of lower extremities today: no redness, warmth, or open skin areas. 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 Type 2 diabetes mellitus with diabetic polyneuropathy, with long-term current use of insulin Technical Information Specialist manages Leonid's diabetes. Last visit lengthy discussion had with Leonid and staff about making a follow up appointment KATALINA. Phone number provided to [facility] [place] to assist with this. Currently taking: Basaglar 30 units BID. Humulin 100 units TID. Ozempic 1 mg weekly. Along with: Lyrica 100 mg Am and 150 mg PM. Hypertension and hyperlipidemia treatment in place. Leonid unaware of his blood glucose readings during the day. Encouragement has been provided on physical activity as tolerated, specifically after meals to help with blood glucose regulation. Facility prepares and serves meals; they do not follow a diabetic diet. Important to follow up with endocrinology regularly. Thankfully he had a follow up with his advanced quality engineer on 11.08.2023 - Leonid shares they discontinued [...] team who manages his diabetes and insulin prescriptions. Stage 2 chronic 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 CKD stage 2: 11.03.2023 creatinine 1.0 and eGFR 84. Currently taking a high amount of insulin daily. Does have an advanced quality engineer that he should be following with regularly. This has been highly encouraged by PCP to both Leonid and staff to arrange follow up visit KATALINA. Continue to monitor kidney lab work regularly. Treatment for comorbidities in place: hypertension, hyperlipidemia, diabetes. Hypertensive heart disease without heart failure Multiple anti-hypertensives. Amlodipine 10 mg QD. Chlorthalidone 25 mg QD. Hydralazine 50 mg QID. Isosorbide mononitriate ER 60 mg QD. Metoprolol ER 200 mg QD. Potassium chloride ER 20 mEq QD increased to 40 mEq BID. Torsemide 20 mg BID decreased to 20 mg QD. Aspirin 81 mg QD. Also treatment for diabetes and hyperlipidemia on board. Follows with [employer] with [facility]. *Unsure of last follow up visit. Lab work from 10.15.2023 leading to increase [...] in discharge summary and serum potassium was 3.9. Blood pressure today: 136/76 Edema today: at baseline, wearing compression socks with lower extremities elevated in recliner. Continue new regimen. . 12/14/2023
--- OUTSIDE RECORDS SUMMARY | 2023-12-27 07:09 | XMS_ITS | CCD ---
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 Datapower Consultant Name Role Phone [place] [facility] Primary Care Provider Leona vailable [place] [facility], [facility] Management U navailable Summary Purpose DataExchange Insurance Providers Payer name Policy type / Coverage type Covered constitution party ID Effective Begin Date Effective End Date [place] Medicare Part B [id number] Unknown Unknown Medicaid [place] Medicare Part B [id number] Unknown Unknown Family history Sister Brittany Suggs [...] Living 09/03/[address]: 5949219 Non-Smoker / No History of Smoking 09/02/[address]: [id number] No Alcohol Consum ption 09/02/2020 Allergies, Adverse Reactions, Alerts Substance Reaction Codes Entered Date Inactivated Date Status * NO KNOWN FOOD ALLERGIES Unknown 07/13/2023 No Inactive Date Active LISINOPRIL RxNorm: 16761 02/12/2020 No Inactive Da te Active Metformin [...] E78. 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 [...] 09/07/2023 Resolved Coronary artery disease invo lving [place] coronary artery of [place] heart, angina presence unspecified ICD-10: I25.10 ICD-9: [...] Fill Instructions cephalexin 500 mg capsule RxNorm: 522337 Take 1 Capsule(s) Oral QID 12/17/19 24 Inactive cephalexin 500 mg capsule RxNorm: 527581 Take 1 Capsule(s) Oral QID 12/17/19 24 Inactive acetaminophen 500 mg tablet RxNorm: 587679 (MAX APAP:4GM/24HR) Take 1 Tablet(s) Oral TID as needed for pain 12/10/19 24 Active torsemide 20 mg tablet RxNorm: 068656 Take 1 Tablet(s) Oral QD 10/26/19 24 Inactive potassium chloride ER 20 mEq tablet,extended release RxNorm: 867842 Take 2 Tablet(s) Oral BID 10/26/19 24 025 Active torsemide 20 mg tablet RxNorm: 200614 Take 1 Tablet(s) Oral QD 10/26/19 24 024 Inactive potassium chloride ER 20 mEq tablet,extended release RxNorm: 239434 Take 2 Tablet(s) Oral BID 10/26/19 24 024 Inactive Artificial Tears (PF) 0.1 %-0.3 % drops in a dropperette RxNorm: 208525 Apply 1-2 Drop(s) Both eyes BID as needed 09/28/19 24 025 Active erythromycin 5 mg/gram (0.5 %) eye ointment RxNorm: 793815 Apply 1 Application Both eyes QHS every night at bedtime Instill ~1 cm ribbon into affected eye 09/28/19 24 024 Inactive Artificial Tears (PF) 0.1 %-0.3 % drops in a dropperette RxNorm: 330352 Apply 1-2 Drop(s) Both eyes BID as needed 09/28/19 24 024 Inactive erythromycin 5 mg/gram (0.5 %) eye ointment RxNorm: 438015 Apply 1 Application Both eyes QHS every night at bedtime Instill ~1 cm ribbon into affected eye 09/28/19 24 024 Inactive acetaminophen 500 mg tablet RxNorm: 685420 (MAX APAP:4GM/24HR) Take 1 Tablet(s) Oral TID as needed for pain 09/24/19 24 024 Inactive carvedilol 25 mg tablet RxNorm: 567475 Take 1 Tablet(s) Oral QD 09/08/19 24 No Stop Date Active pregabalin 100 mg capsule RxNorm: 580917 Take 1 Capsule(s) Oral QAM every morning 09/07/19 24 024 Active rosuvastatin 40 mg tablet RxNorm: 858030 Take 1 Tablet(s) Oral QPM every evening 07/13/19 24 No Stop Date Active ezetimibe 10 mg tablet RxNorm: 723110 Take 1 Tablet(s) Oral QD 07/13/19 24 No Stop Date Active bisacodyl 10 mg rectal suppository RxNorm: 409695 Insert 1 Suppository Rectal QD as needed 07/13/19 24 No Stop Date Active polyethylene glycol 3350 17 gram/dose oral powder RxNorm: 529338 Take 17 Gram(s) Oral BID as needed mix in 4-8ox water 07/13/19 24 No Stop Date Active ketoconazole 2 % shampoo RxNorm: 224494 Apply 1 Application Topical UD as directed 07/13/19 24 No Stop Date Active aripiprazole 15 mg tablet RxNorm: 571549 Take 1/2 Tablet(s) Oral QD 07/13/19 24 No Stop Date Active Ozempic 1 mg/dose (4 mg/3 mL) subcutaneous pen injector RxNorm: 5415403 Inject 1 Milligram(s) Subcutaneous QW once a week 07/13/19 24 No Stop Date Active Guaifenesin AC 10 mg-100 mg/5 mL oral liquid RxNorm: 961608 Take 10 Milliliter(s) Oral Q4H every four hours as needed 07/13/19 24 No Stop Date Active isosorbide mononitrate ER 60 mg tablet,extended release 24 hr RxNorm: 736752 Take 1 Tablet(s) Oral QD 07/13/19 24 No Stop Date Active ammonium lactate 12 % topical cream RxNorm: 402519 Apply 1 Application Topical BID 07/13/19 24 No Stop Date Active hydrocortisone 2.5 % topical cream RxNorm: 542416 Apply 1 Application Topical BID as needed 07/13/19 24 No Stop Date Active rosuvastatin 20 mg sprinkle capsule RxNorm: 7130794 Take 1 Capsule(s) Oral QD 07/13/19 24 No Stop Date Active Vascepa 1 gram capsule RxNorm: 8541978 Take 2 Capsule(s) Oral BID 07/13/19 24 No Stop Date Active venlafaxine ER 75 mg capsule,extended release 24 hr RxNorm: 449817 Take 3 Capsule(s) Oral QD 07/13/19 24 No Stop Date Active Basaglar KwikPen U-100 Insulin 100 unit/mL (3 mL) subcutaneous RxNorm: 9285037 Inject 30U SubQ twice daily 07/07/19 24 025 Active Please dispense one month supply. Basaglar KwikPen U-100 Insulin 100 unit/mL (3 mL) subcutaneous RxNorm: 0843100 Inject 30U SubQ twice daily 07/07/19 24 024 Inactive Please dispense one month supply. pregabalin 150 mg capsule RxNorm: 284891 Take 1 Capsule(s) Oral QHS every night at bedtime 07/05/19 24 024 Active pregabalin 150 mg capsule RxNorm: 479277 Take 1 Capsule(s) Oral QHS every night at bedtime 07/05/19 24 024 Inactive polyethylene glycol 3350 17 gram/dose oral powder RxNorm: 369326 Take 1 Packet Oral QD as needed (1 packet = 17g) mix with 4-8oz of liquid 06/15/19 24 024 Inactive bisacodyl 10 mg rectal suppository RxNorm: 114528 Insert one suppository per rectum once daily as needed for constipation 06/15/19 24 024 Inactive bisacodyl 10 mg rectal suppository RxNorm: 995480 Insert one suppository per rectum once daily as needed for constipation 06/15/19 24 024 Inactive pregabalin 100 mg capsule RxNorm: 325637 Take 1 Capsule(s) Oral QAM every morning 04/27/20 23 024 Inactive Levemir FlexPen 100 unit/mL (3 mL) solution subcutaneous insulin pen RxNorm: 098827 Inject 30 Unit(s) Subcutaneous BID 04/27/20 23 024 Inactive rosuvastatin 40 mg tablet RxNorm: 123829 Take 1 Tablet(s) Oral QPM every evening 04/16/20 024 Inactive D/C rosuvastatin 20mg venlafaxine ER 75 mg capsule,extended release 24 hr RxNorm: 533943 Take 3 Capsule(s) Oral QD 04/14/20 023 Inactive pregabalin 100 mg capsule RxNorm: 326521 Take 1 Capsule(s) Oral QAM every morning [...] meter clotrimazole 1 % topical cream RxNorm: 060637 Take apply topically to abdominal folds twice daily for 14 days 03/12/20 024 Inactive Ozempic 1 mg/dose (4 mg/3 mL) subcutaneous pen injector RxNorm: 0786620 Inject 1 Milligram(s) Subcutaneous QW once a week 03/11/20 023 Inactive rosuvastatin 20 mg tablet RxNorm: 003421 Take 1 Tablet(s) Oral QD 02/26/20 23 023 Inactive d/c pravastatin 80mg Ozempic 1 mg/dose (4 mg/3 mL) subcutaneous pen injector RxNorm: 1321157 Inject 1 Milligram(s) Subcutaneous QW once a week 02/20/20 23 023 Inactive pregabalin 150 mg capsule RxNorm: 696387 Take 1 Capsule(s) Oral HS at bed time 02/19/20 23 023 Inactive pregabalin 100 mg capsule RxNorm: 173180 Take 1 Capsule(s) Oral QAM every morning 02/18/20 23 023 Inactive venlafaxine ER 75 mg capsule,extended release 24 hr RxNorm: 188136 Take 3 Capsule(s) Oral QD 02/04/20 23 023 Inactive FreeStyle Chema 2 Sensor kit RxNorm: use as directed 02/04/20 23 023 Inactive FreeStyle Chema 2 Sensor kit RxNorm: use as directed 02/04/20 23 024 Inactive fluconazole 150 mg tablet RxNorm: 952773 Take 1 Tablet(s) Oral on day 3 and on day 6 02/03/20 024 Active chlorthalidone 25 mg tablet RxNorm: 208947 Take 1 Tablet(s) Oral QAM every morning 02/03/20 No Stop Date Active venlafaxine ER 150 mg capsule,extended release 24 hr RxNorm: 448365 Take 1 Capsule(s) Oral QD 02/03/20 23 023 Inactive acetaminophen 500 mg tablet RxNorm: 242183 1 TABLET ORALLY 3 TIMES DAILY (MAX APAP:4GM/24HR) 12/15/19 23 023 Inactive clotrimazole 1 % topical cream RxNorm: 918787 apply 1g topically to top of feet and in between toes BID 12/09/19 23 023 Inactive potassium chloride ER 20 mEq tablet,extended release RxNorm: 549142 Take 1 Tablet(s) Oral BID 12/09/19 23 024 Inactive d/c 20mEq once daily (sent from hospital) nystatin 100,000 unit/gram topical powder RxNorm: 735432 APPLY TO AFFECTED AREAS TOPICALLY 2 TIMES DAILY 11/21/19 23 024 Inactive Nystop 100,000 unit/gram topical powder RxNorm: 817514 Apply to abd folds, under breasts and L side of groin Topical BID x 14 days, then BID PRN 11/20/19 23 023 Inactive dx: yeast dermatitis [place] Ultra Strength 4 %-30 %-10 % topical cream RxNorm: 165497 Apply 1 Gram(s) Topical QID PRN to feet and legs for neuropathic pain 11/11/19 23 024 Inactive clotrimazole 1 % topical cream RxNorm: 686999 Apply 1/2 Gram(s) Topical BID Apply to affected areas of groin, periarea, and abdominal topically 2 times daily 11/10/19 23 023 Inactive hydrocortisone 2.5 % topical cream RxNorm: 506863 Apply 1/2 Gram(s) Topical BID as needed 11/10/19 024 Inactive Humulin R U-500 (Concentrated) Insulin 500 unit/mL subcutaneous soln RxNorm: 943498 Inject 100 Unit(s) Subcutaneous TID 10/07/19 024 Inactive Levemir FlexPen 100 unit/mL (3 mL) solution subcutaneous insulin pen RxNorm: 313790 Inject 30 Unit(s) Subcutaneous BID 10/07/19 023 Inactive Ozempic 0.25 mg or 0.5 mg (2 mg/3 mL) subcutaneous pen injector RxNorm: 2591492 Inject 1/2 Milligram(s) Subcutaneous QW once a week 10/07/19 024 Inactive aripiprazole 15 mg tablet RxNorm: 533631 1/2 TAB (7.5MG) ORALLY DAILY (DX:MAJOR DEPRESSIVE DISORDER) 09/23/19 23 023 Inactive Lancets,Thin 28 gauge RxNorm: Use 1 as directed QID 09/15/19 23 024 Inactive Accu-Chek Guide test strips RxNorm: Use 1 Test Strip QID 09/15/19 23 023 Inactive ok to substitute with any covered alternative test strip torsemide 20 mg tablet RxNorm: 404040 Take 1 Tablet(s) Oral BID 09/09/19 23 024 Inactive d/c once daily dosing carvedilol 25 mg tablet RxNorm: 896466 Take 1 Tablet(s) Oral QD 08/25/19 024 Inactive pregabalin 150 mg capsule RxNorm: 721529 1 Capsule(s) Oral HS at bed time 08/18/19 023 Inactive pregabalin 100 mg capsule RxNorm: 761758 1 Capsule(s) Oral QAM every morning 08/18/19 023 Inactive carvedilol 25 mg tablet RxNorm: 137408 1 Tablet(s) Oral QD 07/28/19 23 023 Inactive lisinopril 20 mg tablet RxNorm: 356218 Give 1 Tablet(s) Oral QD 07/28/19 23 023 Inactive Lyrica 150 mg capsule RxNorm: 130715 Take 1 Capsule(s) Oral QHS every night at bedtime 07/19/19 23 023 Inactive d/c 100mg dose Diflucan 150 mg tablet RxNorm: 288688 Take 1 Tablet(s) Oral QD repeat on day 3 and 6 07/19/19 23 023 Inactive pregabalin 100 mg capsule RxNorm: 484404 Take 1 Capsule(s) Oral QAM every morning 07/19/19 023 Inactive gatifloxacin 0.5 % eye drops RxNorm: 788753 Instill 1 Drop(s) as directed TID Instill 1 drop in to affected eye(s) starting 1 day prior to surgery and continue until gone (do not exceed 4 weeks). 07/13/19 23 023 Inactive carvedilol 25 mg tablet RxNorm: 494571 2 Tablet(s) Oral BID 07/13/19 23 023 Inactive Humulin R Regular U-100 Insulin 100 unit/mL injection solution RxNorm: 399728 85 Unit(s) Injection TID 07/13/19 23 023 Inactive ketorolac 0.5 % eye drops RxNorm: 453466 Instill 1 Drop(s) as directed QID Instill 1 drop into affected eye(s) 4 times daily starting 1 day prior to surgery and continue until gone (do not exceed 4 weeks). 07/13/19 23 023 Inactive Diflucan 150 mg tablet RxNorm: 674312 Take 1 Tablet(s) Oral QD repeat on day 3 and 6 06/30/19 23 023 Inactive Accu-Chek Guide test strips RxNorm: Use 1 Test Strip QID Use 1 test strip to monitor blood glucose 4 times daily and as needed. Dx:E11.42. 06/23/19 23 023 Inactive ok to substitute with any covered alternative test strip dextromethorphan-gu aifenesin 10 mg-100 mg/5 mL oral liquid RxNorm: 854386 Take 10 Milliliter(s) Oral every 4 hours as needed for cough 06/19/19 023 Inactive dextromethorphan-gu aifenesin 10 mg-100 mg/5 mL oral liquid RxNorm: 030531 Take 10 Milliliter(s) Oral every 4 hours as needed for cough 06/19/19 023 Inactive Lyrica 150 mg capsule RxNorm: 307390 Take 1 Capsule(s) Oral QHS every night at bedtime 06/18/19 023 Inactive d/c 100mg dose aripiprazole 15 mg tablet RxNorm: 570232 1/2 TAB (7.5MG) ORALLY DAILY (DX:MAJOR DEPRESSIVE DISORDER) 06/05/19 023 Inactive pregabalin 100 mg capsule RxNorm: 846284 1 Capsule(s) Oral QAM every morning 06/02/19 023 Inactive Banophen 50 mg capsule RxNorm: 8257880 Take 1 Capsule(s) Oral Q6H every 6 hours as needed 05/19/19 23 No Stop Date Active Novolog Flexpen U-100 Insulin aspart 100 unit/mL (3 mL) subcutaneous RxNorm: 8184729 Inject 10 Unit(s) Subcutaneous QHS every night at bedtime with nighttime snack 04/08/20 022 Inactive Novolog Flexpen U-100 Insulin aspart 100 unit/mL (3 mL) subcutaneous RxNorm: 9492720 Inject 42 Unit(s) Subcutaneous TID in addition to sliding scale 04/08/20 022 Inactive d/c 36u albuterol sulfate HFA 90 mcg/actuation aerosol inhaler RxNorm: 8290890 Take 2 Puff(s) Inhalation Q4H every four hours as needed as needed for SOB, cough, or wheezing 04/07/20 030 Active Banophen 50 mg capsule RxNorm: 3865722 Take 1 Capsule(s) Oral Q6H every 6 hours as needed 04/06/20 023 Inactive diphenhydramine 50 mg tablet RxNorm: 4794120 Take 1 Tablet(s) Oral Q6H every 6 hours as needed 04/06/20 22 022 Inactive diphenhydramine 50 mg tablet RxNorm: 2418306 1 Tablet(s) Oral Q6H every 6 hours as needed 04/06/20 22 022 Inactive Abilify 15 mg tablet RxNorm: 169409 1/2 Tablet(s) Oral QD 03/10/20 22 023 Inactive Shingrix (PF) 50 mcg/0.5 mL intramuscular suspension, kit RxNorm: 0977100 Administer 1/2 Milliliter(s) Intramuscular QD one time shingrix step 2 ( step 1 given 11/04/21) WITH needle - Nursing please administer upon arrival and once administered post a bridge message with date of administration, gas distribution and emergency clerk, expiration date, and lot# so we can update [facility] 02/18/20 22 022 Inactive dispense with needle Shingrix (PF) 50 mcg/0.5 mL intramuscular suspension, kit RxNorm: 4722405 Administer 1/2 Milliliter(s) Intramuscular QD one time shingrix step 2 ( step 1 given 11/04/21) WITH needle - Nursing please administer upon arrival and once administered post a bridge message with date of administration, gas distribution and emergency clerk, expiration date, and lot# so we can update [facility] 02/18/20 22 022 Inactive dispense with needle polyethylene glycol 3350 17 gram/dose oral powder RxNorm: 672503 Take 17=1 capful Gram(s) Oral QD mix with 4-8oz of liquid 01/08/20 22 023 Inactive take this in addition to BID prn order Lyrica 100 mg capsule RxNorm: 302145 Take 1 Capsule(s) Oral QAM every morning 01/08/20 22 022 Inactive d/c 50mg dose acetaminophen 500 mg tablet RxNorm: 162581 Take 1 Tablet(s) Oral TID 01/08/20 22 022 Inactive d/c PRN order Lyrica 150 mg capsule RxNorm: 983960 Take 1 Capsule(s) Oral QHS every night at bedtime 01/08/20 22 023 Inactive d/c 100mg dose Abilify 5 mg tablet RxNorm: 408293 Take 1 Tablet(s) Oral QD take 1 tab po QD #30 refill 5 dx: MDD 12/12/19 22 022 Inactive Abilify 5 mg tablet RxNorm: 590996 Take 1 Tablet(s) Oral QD take 1 tab po QD #30 refill 5 dx: MDD 12/12/19 22 022 Inactive Novolog Flexpen U-100 Insulin aspart 100 unit/mL (3 mL) subcutaneous RxNorm: 1859863 Inject 42 Unit(s) Subcutaneous TID in addition to sliding scale 12/10/19 22 022 Inactive d/c 36u chlorthalidone 25 mg tablet RxNorm: 833985 Take 1 Tablet(s) Oral QAM every morning 12/10/19 22 023 Inactive pregabalin 50 mg capsule RxNorm: 993782 Take 1 Capsule(s) Oral QAM every morning 11/12/19 22 022 Inactive tetanus-diphtheria toxoids-Td 2 Lf unit-2 Lf unit/0.5 mL IM suspension RxNorm: 139 Take 0.5 Miscellaneous Intramuscular 11/12/19 22 022 Inactive need tdap - nursing to administer upon arrival pregabalin 50 mg capsule RxNorm: 659208 Take 1 Capsule(s) Oral QAM every morning 10/16/19 22 022 Inactive pregabalin 50 mg capsule RxNorm: 236328 Take 1 Capsule(s) Oral QAM every morning 10/16/19 22 022 Inactive pregabalin 50 mg capsule RxNorm: 377709 1 Capsule(s) Oral QAM every morning 10/15/19 22 022 Inactive Shingrix (PF) 50 mcg/0.5 mL intramuscular suspension, kit RxNorm: 3572499 Administer 1/2 Milliliter(s) Intramuscular one time Nursing please administer upon arrival and once administered post a bridge message with date of administration, gas distribution and emergency clerk, expiration date, and lot# so we can update [facility]. 10/09/19 22 022 Inactive shingrix step 1 Shingrix (PF) 50 mcg/0.5 mL intramuscular suspension, kit RxNorm: 0250655 Administer 1/2 Milliliter(s) Intramuscular one time Nursing please administer upon arrival and once administered post a bridge message with date of administration, gas distribution and emergency clerk, expiration date, and lot# so we can update [facility]. 10/09/19 22 Inactive shingrix step 1 cholecalciferol (vitamin D3) 1,250 mcg (50,000 unit) capsule RxNorm: 110516 Take 1 Capsule(s) Oral QW once a [...] aspart 100 unit/mL (3 mL) subcutaneous RxNorm: 9772983 Inject 10 Unit(s) Subcutaneous QHS every night at bedtime with nighttime snack 10/08/19 22 Inactive Shingrix (PF) 50 mcg/0.5 mL intramuscular suspension, kit RxNorm: 8305610 ADMINISTER 2-DOSE SERIES PER CDC GUIDELINES 10/08/19 22 022 Active Shingrix (PF) 50 mcg/0.5 mL intramuscular suspension, kit RxNorm: 7346433 ADMINISTER 2-DOSE SERIES PER CDC GUIDELINES 10/08/19 22 022 Inactive Novolog Flexpen U-100 Insulin aspart 100 unit/mL (3 mL) subcutaneous RxNorm: 2546020 Inject 36 Unit(s) Subcutaneous TID in addition to sliding scale 10/08/19 22 Inactive Novofine Autocover 30 gauge x 1/3 needle RxNorm: Use 1 Miscellaneous UD as directed Use 1 needle as directed to administer insulin 5 times a day Dx:E11.42. 10/03/19 22 Inactive ok to substitute with any covered alternative pen needle benzoyl peroxide 10 % topical cleanser RxNorm: 762338 Apply 1 Application Topical QD apply to face, wash rinse and dry once daily (may change to QOD if drying) 08/19/19 22 022 Inactive (%covered by insurance) #60ml refill 11 dx: acne benzoyl peroxide 10 % topical cleanser RxNorm: 276825 Apply 1 Application Topical QD apply to face, wash rinse and dry once daily (may change to QOD if drying) 08/19/19 22 022 Inactive (%covered by insurance) #60ml refill 11 dx: acne benzoyl peroxide 10 % topical cleanser RxNorm: 261217 Apply 1 Application Topical QD apply to face, wash rinse and dry once daily (may change to QOD if drying) 08/19/19 22 022 Inactive (%covered by insurance) #60ml refill 11 dx: acne Lyrica 50 mg capsule RxNorm: 098417 Take 1 Capsule(s) Oral QAM every morning Take 1 capsule by mouth once daily 08/19/19 022 Inactive benzoyl peroxide 10 % topical cleanser RxNorm: 221716 Apply 1 Application Topical QD apply to face, wash rinse and dry once daily (may change to QOD if drying) 08/19/19 022 Inactive (%covered by insurance) #60ml refill 11 dx: acne Lyrica 100 mg capsule RxNorm: 912496 Take 1 Capsule(s) Oral QHS every night at bedtime Take 1 capsule by mouth once daily at bedtime 08/19/19 22 022 Inactive Lyrica 100 mg capsule RxNorm: 324686 Take 1 Capsule(s) Oral QHS every night at bedtime Take 1 capsule by mouth once daily at bedtime 08/16/19 22 Inactive Lyrica 50 mg capsule RxNorm: 232899 Take 1 Capsule(s) Oral QAM every morning Take 1 capsule by mouth once daily 08/16/19 22 022 Inactive Levemir FlexTouch U-100 Insulin 100 unit/mL (3 mL) subcutaneous pen RxNorm: 658982 Inject 86 Unit(s) Subcutaneous BID 08/05/19 22 022 Inactive d/c 83units BID Lyrica 100 mg capsule RxNorm: 531614 Take 1 Capsule(s) Oral QHS every night at bedtime Take 1 capsule by mouth once daily at bedtime 07/14/19 22 Inactive Lyrica 50 mg capsule RxNorm: 665339 Take 1 Capsule(s) Oral QAM every morning Take 1 capsule by mouth once daily 07/14/19 22 Inactive Levemir FlexTouch U-100 Insulin 100 unit/mL (3 mL) subcutaneous pen RxNorm: 366952 Inject 83 Unit(s) Subcutaneous BID 07/08/19 22 [...] test strip hydralazine 50 mg tablet RxNorm: 430141 Take 1 Tablet(s) Oral QID 05/05/20 Inactive venlafaxine ER 225 mg tablet,extended release 24 hr RxNorm: 011314 Take 1 Tablet(s) Oral QD 05/05/20 Inactive venlafaxine ER 225 mg tablet,extended release 24 hr RxNorm: 127299 Take 1 Tablet(s) Oral QD 05/05/20 022 Inactive isosorbide mononitrate ER 30 mg tablet,extended release 24 hr RxNorm: 718336 Take 1 Tablet(s) Oral QD 05/05/20 024 Inactive hydralazine 50 mg tablet RxNorm: 935290 Take 1 Tablet(s) Oral QID 05/05/20 Inactive aspirin 81 mg tablet,delayed release RxNorm: 645384 Take 1 Tablet(s) Oral QD 03/31/20 022 Inactive Vitamin D2 1,250 mcg (50,000 unit) capsule RxNorm: 3170104 Take 1 Capsule(s) Oral QW once a week x 12 weeks 03/31/20 Inactive Vitamin D2 1,250 mcg (50,000 unit) capsule RxNorm: 7141155 Take 1 Capsule(s) Oral QW once a week 03/31/20 Inactive Zetia 10 mg tablet RxNorm: 132627 Take 1 Tablet(s) Oral QD 03/31/20 024 Inactive Zetia 10 mg tablet RxNorm: 789251 Take 1 Tablet(s) Oral QD 03/31/20 Inactive hydralazine 25 mg tablet RxNorm: 513433 Take 1 Tablet(s) Oral QID 03/31/20 021 Inactive hydralazine 25 mg tablet RxNorm: 905959 Take 1 Tablet(s) Oral QID 03/31/20 021 Inactive hydralazine 10 mg tablet RxNorm: 821692 Take 1 Tablet(s) Oral QID 03/03/20 021 Inactive cephalexin 500 mg tablet RxNorm: 864247 Take 1 Tablet(s) Oral QID 02/27/20 021 Inactive cephalexin 500 mg tablet RxNorm: 486950 Take 1 Tablet(s) Oral QID 02/27/20 021 Inactive lisinopril 40 mg tablet RxNorm: 067388 Take 1 Tablet(s) Oral QD 02/11/20 023 Inactive Eliquis 5 mg tablet RxNorm: 8902048 Take 1 Tablet(s) Oral BID 01/05/20 21 022 Inactive Eliquis 5 mg tablet RxNorm: 2655094 Take 2 Tablet(s) Oral QD 01/01/20 021 Inactive Lyrica 50 mg capsule RxNorm: 674527 Take 1 Capsule(s) Oral QAM every morning 12/24/19 021 Inactive Lyrica 100 mg capsule RxNorm: 110419 Take 1 Capsule(s) Oral QHS every night at bedtime 12/24/19 021 Inactive clotrimazole 1 % topical cream RxNorm: 764103 Apply to right foot and toes Topical BID 12/04/19 21 023 Inactive metoprolol succinate ER 200 mg tablet,extended release 24 hr RxNorm: 964145 Take 1 Tablet(s) Oral QD 12/04/19 023 Inactive ciprofloxacin 500 mg tablet RxNorm: 388345 Take 1 Tablet(s) Oral QD 11/30/19 021 Inactive DX ofloxacin otic drops Accu-Chek Guide test strips RxNorm: USE 1 TO CHECK GLUCOSE 4 TIMES DAILY AND NEEDED 11/15/19 21 023 Inactive Blood Glucose Test strips RxNorm: Use 1 Test Strip QID at PRN 11/05/19 21 023 Inactive E11.42 lisinopril 30 mg tablet RxNorm: 004644 Take 1 Tablet(s) Oral QD 10/30/19 021 Inactive lisinopril 20 mg tablet RxNorm: 869604 Take 1 Tablet(s) Oral QD 10/23/19 21 021 Inactive lisinopril 20 mg tablet RxNorm: 632263 Take 1 Tablet(s) Oral QD 10/23/19 21 021 Inactive lisinopril 10 mg tablet RxNorm: 268295 Take 1 Tablet(s) Oral QD 10/02/19 21 021 Inactive icosapent ethyl 1 gram capsule RxNorm: 1339080 Take 2 Capsule(s) (2 gm) Oral BID with meals 09/12/19 21 024 Inactive Okay to dispense one 2gm tab if you have that available. icosapent ethyl 1 gram capsule RxNorm: 9951033 Take 2 Capsule(s) Oral BID 09/12/19 21 021 Inactive Okay to dispense one 2gm tab if you have that available. amlodipine 10 mg tablet RxNorm: 211765 Take 1 Tablet(s) Oral QD 09/04/19 022 Inactive aspirin 81 mg tablet,delayed release RxNorm: 661103 Take 1 Tablet(s) Oral QD 09/04/19 21 021 Inactive Levemir FlexTouch U-100 Insulin 100 unit/mL (3 mL) subcutaneous pen RxNorm: 100744 Inject 150 Unit(s) Subcutaneous BID 09/04/19 21 022 Inactive venlafaxine ER 150 mg tablet,extended release 24 hr RxNorm: 511842 Take 1 Tablet(s) Oral QD 09/04/19 21 021 Inactive clotrimazole-betame thasone 1 %-0.05 % topical cream RxNorm: 351140 Apply to rash on red area on left abdomen/chest Topical BID 08/10/19 21 021 Inactive amlodipine 5 mg tablet RxNorm: 073817 Take 1 Tablet(s) Oral QD 07/31/19 21 021 Inactive cephalexin 500 mg tablet RxNorm: 518900 Take 1 Tablet(s) Oral BID BID - Twice Daily 07/31/19 21 021 Inactive Start 08/01/20 pantoprazole 40 mg tablet,delayed release RxNorm: 437225 Take 1 Tablet(s) Oral QAM every morning 07/08/19 022 Inactive senna 8.6 mg tablet RxNorm: 047464 Take 1 Tablet(s) Oral QD 07/08/19 022 Inactive carbamazepine 200 mg tablet RxNorm: 183495 Take 1 Tablet(s) Oral BID 07/08/19 022 Inactive clopidogrel 75 mg tablet RxNorm: 366834 Take 1 Tablet(s) Oral QD 07/08/19 021 Inactive Blood Glucose Test strips RxNorm: Use 1 Test Strip QID at PRN 07/08/19 Inactive E11.42 Novolog Flexpen U-100 Insulin aspart 100 unit/mL (3 mL) subcutaneous RxNorm: 0112628 Administer per sliding scale Milliliter(s) Subcutaneous TID 151-200: 10 u; 201-250: 20 u; 251-300: 30 u; 301-350: 40 u; 351-400: 50 u. 07/08/19 022 Inactive lisinopril 5 mg tablet RxNorm: 169913 Take 1 Tablet(s) Oral QD 07/08/19 021 Inactive Novolog Flexpen U-100 Insulin aspart 100 unit/mL (3 mL) subcutaneous RxNorm: 4738118 Inject 85 Unit(s) Subcutaneous TID 07/08/19 022 Inactive pravastatin 80 mg tablet RxNorm: 574991 Take 1 Tablet(s) Oral QHS every night at bedtime 07/08/19 023 Inactive clotrimazole 1 % topical cream RxNorm: 956410 Apply to bilateral groin areas Topical BID 07/08/19 022 Inactive metoprolol succinate ER 200 mg tablet,extended release 24 hr RxNorm: 060631 Take 1 Tablet(s) Oral QD 07/08/19 021 Inactive Vitamin D3 25 mcg (1,000 unit) tablet RxNorm: 528060 Take 1 Tablet(s) Oral QD 07/08/19 021 Inactive isosorbide dinitrate 30 mg tablet RxNorm: 291073 Take 1 Tablet(s) Oral QD 07/08/19 21 021 Inactive Levemir FlexTouch U-100 Insulin 100 unit/mL (3 mL) subcutaneous pen RxNorm: 903750 Inject 140 Unit(s) Subcutaneous BID 07/08/19 21 021 Inactive torsemide 20 mg tablet RxNorm: 891826 Take 1 Tablet(s) Oral QD 07/08/19 21 023 Inactive venlafaxine 75 mg tablet RxNorm: 953334 Take 1 Tablet(s) Oral QD 07/08/19 021 Inactive acetaminophen 500 mg tablet RxNorm: 378944 Take 1 Tablet(s) Oral TID as needed for headache 06/18/19 021 Inactive acetaminophen 500 mg tablet RxNorm: 762109 Take 1 Tablet(s) Oral TID as needed for headache 06/18/19 021 Inactive Lyrica 100 mg capsule RxNorm: 446616 Take 1 Capsule(s) Oral QHS every night at bedtime 06/11/19 021 Inactive Lyrica 50 mg capsule RxNorm: 696550 Take 1 Capsule(s) Oral QAM every morning 06/10/19 021 Inactive hydrocortisone 2.5 % topical cream RxNorm: 161029 Apply to bilateral groin creases Topical BID 05/15/20 20 021 Inactive clotrimazole 1 % topical cream RxNorm: 150800 Apply to bilateral groin areas Topical BID 05/15/20 20 021 Inactive Lyrica 50 mg capsule RxNorm: 979065 Take 1 Capsule(s) Oral QAM every morning 05/14/20 20 020 Inactive Lyrica 100 mg capsule RxNorm: 595466 Take 1 Capsule(s) Oral QHS every night [...] Inactive Nystop 100,000 unit/gram topical powder RxNorm: 456166 Apply to abd folds, under breasts and L side of groin Topical BID x 14 days, then BID PRN 04/08/20 20 Inactive dx: yeast dermatitis Lyrica 100 mg capsule RxNorm: 266085 Take 1 Capsule(s) Oral QHS every night at bedtime 03/13/20 20 Inactive Lyrica 50 mg capsule RxNorm: 453413 Take 1 Capsule(s) Oral QAM every morning 03/13/20 20 Inactive ketoconazole 2 % shampoo RxNorm: 444614 Apply Topical two times a week with showers 03/11/20 20 Inactive cholecalciferol (vitamin D3) 50 mcg (2,000 unit) tablet RxNorm: 413264 Take 1 Tablet(s) Oral QD 03/11/20 20 021 Inactive Zetia 10 mg tablet RxNorm: 970658 Take 1 Tablet(s) Oral QD 03/07/20 20 021 Inactive Zetia 10 mg tablet RxNorm: 370201 Take 1 Tablet(s) Oral QD 03/07/20 20 Inactive Lyrica 50 mg capsule RxNorm: 328283 Take 1 Capsule(s) Oral QAM every morning 02/15/20 20 Inactive Lyrica 100 mg capsule RxNorm: 988818 Take 1 Capsule(s) Oral QHS every night at bedtime 02/15/20 20 Inactive Lyrica 100 mg capsule RxNorm: 232952 Take 1 Capsule(s) Oral QHS every night at bedtime 02/15/20 20 Inactive Lyrica 50 mg capsule RxNorm: 699895 Take 1 Capsule(s) Oral QAM every morning 02/15/20 20 020 Inactive metoprolol succinate ER 200 mg tablet,extended release 24 hr RxNorm: 630024 Take 1 Tablet(s) Oral QD 08/12/19 23 Active loperamide 2 mg capsule RxNorm: 566920 Take 1 Capsule(s) Oral QID as needed 06/12/19 22 Active hydralazine 50 mg tablet RxNorm: 668865 Take 1 Tablet(s) Oral QID 08/12/19 23 Active venlafaxine ER 75 mg capsule,extended release 24 hr RxNorm: 998092 Take 3 Capsule(s) Oral QD 06/12/19 22 023 Inactive polyethylene glycol 3350 17 gram/dose oral powder RxNorm: 691744 Take 17=1 capful Gram(s) Oral BID as needed mix with 4-8oz of liquid 06/12/19 22 024 Inactive icosapent ethyl 1 gram capsule RxNorm: 2457943 Take 2 Capsule(s) (2 gm) Oral BID with meals 10/07/19 23 023 Inactive Okay to dispense one 2gm tab if you have that available. Levemir FlexTouch U-100 Insulin 100 unit/mL (3 mL) subcutaneous pen RxNorm: 180752 Inject 80 Unit(s) Subcutaneous BID 07/14/19 23 023 Inactive Novolog Flexpen U-100 Insulin aspart 100 unit/mL (3 mL) subcutaneous RxNorm: 0480184 Insert 30 Unit(s) Subcutaneous TID with meals 10/08/19 22 022 Inactive Medication Administered No Medication Administered data Reason For Visit No Reason For Visit data Plan of Care Planned Activity Notes Codes Status Date Referral: [facility] WPtel: [address], [address] [id number] [place] Referral Records Received 09/21/2022 Referral: [facility] [place]: [address] [id number] [place] Referral Completed 05/28/2021 Referral: General Cardiology [...] Sister Jyotsna involved in his care cell# [phone] Guardian: Giulia (tapan met in person 09/01/21), [...] note from 11.08.2023 at [facility] (follow up 6 months) 12/14/2023
--- OUTSIDE RECORDS SUMMARY | 2024-01-13 05:39 | XMS_ITS | CCD ---
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 Name Role Phone Harrison Durham Primary Care Provider Leona vailable Harrison Durham Chronic Care Management U navailable Summary Purpose DataExchange Insurance Providers Payer name Policy type / Coverage type Covered republican ID Effective Begin Date Effective End Date [place] Part B [id number] Unknown Unknown Medicaid [place] Medicare Part B [id number] Unknown Unknown Family history Sister Brittany Suggs [...] Unknown Correction 09/03/[address]: 0604416 Non-Smoker / No History of Smoking 09/02/[address]: 406972420 No Alcohol Consum ption 09/02/2020 Allergies, Adverse Reactions, Alerts Substance Reaction Codes Entered Date Inactivated Date Status * NO KNOWN FOOD ALLERGIES Unknown 07/13/2023 No Inactive Date Active LISINOPRIL RxNorm: 35417 02/12/2020 No Inactive Da te Active Metformin [...] E78. 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 Other buttermaker (current) dr ug therapy ICD-10: Z79.899 ICD-9: [...] 09/07/2023 Resolved Coronary artery disease invo lving [place] coronary artery of [place] heart, angina presence unspecified ICD-10: I25.10 ICD-9: [...] Fill Instructions cephalexin 500 mg capsule RxNorm: 105125 Take 1 Capsule(s) Oral QID 12/17/19 24 024 Inactive cephalexin 500 mg capsule RxNorm: 069569 Take 1 Capsule(s) Oral QID 12/17/19 24 024 Inactive acetaminophen 500 mg tablet RxNorm: 295576 (MAX APAP:4GM/24HR) Take 1 Tablet(s) Oral TID as needed for pain 12/10/19 24 Active torsemide 20 mg tablet RxNorm: 536495 Take 1 Tablet(s) Oral QD 10/26/19 24 024 Inactive potassium chloride ER 20 mEq tablet,extended release RxNorm: 128819 Take 2 Tablet(s) Oral BID 10/26/19 24 025 Active torsemide 20 mg tablet RxNorm: 805996 Take 1 Tablet(s) Oral QD 10/26/19 24 024 Inactive potassium chloride ER 20 mEq tablet,extended release RxNorm: 802551 Take 2 Tablet(s) Oral BID 10/26/19 24 Inactive Artificial Tears (PF) 0.1 %-0.3 % drops in a dropperette RxNorm: 033729 Apply 1-2 Drop(s) Both eyes BID as needed 09/28/19 24 025 Active erythromycin 5 mg/gram (0.5 %) eye ointment RxNorm: 801668 Apply 1 Application Both eyes QHS every night at bedtime Instill ~1 cm ribbon into affected eye 09/28/19 24 Inactive Artificial Tears (PF) 0.1 %-0.3 % drops in a dropperette RxNorm: 896323 Apply 1-2 Drop(s) Both eyes BID as needed 09/28/19 24 024 Inactive erythromycin 5 mg/gram (0.5 %) eye ointment RxNorm: 811774 Apply 1 Application Both eyes QHS every night at bedtime Instill ~1 cm ribbon into affected eye 09/28/19 24 Inactive acetaminophen 500 mg tablet RxNorm: 722441 (MAX APAP:4GM/24HR) Take 1 Tablet(s) Oral TID as needed for pain 09/24/19 24 Inactive carvedilol 25 mg tablet RxNorm: 486391 Take 1 Tablet(s) Oral QD 09/08/19 24 No Stop Date Active pregabalin 100 mg capsule RxNorm: 217819 Take 1 Capsule(s) Oral QAM every morning 09/07/19 24 024 Inactive rosuvastatin 40 mg tablet RxNorm: 708409 Take 1 Tablet(s) Oral QPM every evening 07/13/19 24 No Stop Date Active ezetimibe 10 mg tablet RxNorm: 527014 Take 1 Tablet(s) Oral QD 07/13/19 24 No Stop Date Active bisacodyl 10 mg rectal suppository RxNorm: 963627 Insert 1 Suppository Rectal QD as needed 07/13/19 24 No Stop Date Active polyethylene glycol 3350 17 gram/dose oral powder RxNorm: 955985 Take 17 Gram(s) Oral BID as needed mix in 4-8ox water 07/13/19 24 No Stop Date Active ketoconazole 2 % shampoo RxNorm: 305768 Apply 1 Application Topical UD as directed 07/13/19 24 No Stop Date Active aripiprazole 15 mg tablet RxNorm: 596842 Take 1/2 Tablet(s) Oral QD 07/13/19 24 No Stop Date Active Ozempic 1 mg/dose (4 mg/3 mL) subcutaneous pen injector RxNorm: 5207258 Inject 1 Milligram(s) Subcutaneous QW once a week 07/13/19 24 No Stop Date Active Guaifenesin AC 10 mg-100 mg/5 mL oral liquid RxNorm: 129078 Take 10 Milliliter(s) Oral Q4H every four hours as needed 07/13/19 24 No Stop Date Active isosorbide mononitrate ER 60 mg tablet,extended release 24 hr RxNorm: 509199 Take 1 Tablet(s) Oral QD 07/13/19 24 No Stop Date Active ammonium lactate 12 % topical cream RxNorm: 077133 Apply 1 Application Topical BID 07/13/19 24 No Stop Date Active hydrocortisone 2.5 % topical cream RxNorm: 365046 Apply 1 Application Topical BID as needed 07/13/19 24 No Stop Date Active rosuvastatin 20 mg sprinkle capsule RxNorm: 7613304 Take 1 Capsule(s) Oral QD 07/13/19 24 No Stop Date Active Vascepa 1 gram capsule RxNorm: 9021507 Take 2 Capsule(s) Oral BID 07/13/19 24 No Stop Date Active venlafaxine ER 75 mg capsule,extended release 24 hr RxNorm: 390037 Take 3 Capsule(s) Oral QD 07/13/19 24 No Stop Date Active Basaglar KwikPen U-100 Insulin 100 unit/mL (3 mL) subcutaneous RxNorm: 9716560 Inject 30U SubQ twice daily 07/07/19 24 025 Active Please dispense one month supply. Basaglar KwikPen U-100 Insulin 100 unit/mL (3 mL) subcutaneous RxNorm: 9485215 Inject 30U SubQ twice daily 07/07/19 24 024 Inactive Please dispense one month supply. pregabalin 150 mg capsule RxNorm: 675489 Take 1 Capsule(s) Oral QHS every night at bedtime 07/05/19 24 024 Inactive pregabalin 150 mg capsule RxNorm: 449110 Take 1 Capsule(s) Oral QHS every night at bedtime 07/05/19 24 024 Inactive polyethylene glycol 3350 17 gram/dose oral powder RxNorm: 014671 Take 1 Packet Oral QD as needed (1 packet = 17g) mix with 4-8oz of liquid 06/15/19 24 024 Inactive bisacodyl 10 mg rectal suppository RxNorm: 855073 Insert one suppository per rectum once daily as needed for constipation 06/15/19 24 024 Inactive bisacodyl 10 mg rectal suppository RxNorm: 748625 Insert one suppository per rectum once daily as needed for constipation 06/15/19 24 024 Inactive pregabalin 100 mg capsule RxNorm: 684103 Take 1 Capsule(s) Oral QAM every morning 04/27/20 23 024 Inactive Levemir FlexPen 100 unit/mL (3 mL) solution subcutaneous insulin pen RxNorm: 717005 Inject 30 Unit(s) Subcutaneous BID 04/27/20 024 Inactive rosuvastatin 40 mg tablet RxNorm: 072611 Take 1 Tablet(s) Oral QPM every evening 04/16/20 024 Inactive D/C rosuvastatin 20mg venlafaxine ER 75 mg capsule,extended release 24 hr RxNorm: 313114 Take 3 Capsule(s) Oral QD 04/14/20 023 Inactive pregabalin 100 mg capsule RxNorm: 883346 Take 1 Capsule(s) Oral QAM every morning [...] meter clotrimazole 1 % topical cream RxNorm: 198135 Take apply topically to abdominal folds twice daily for 14 days 03/12/20 024 Inactive Ozempic 1 mg/dose (4 mg/3 mL) subcutaneous pen injector RxNorm: 2360449 Inject 1 Milligram(s) Subcutaneous QW once a week 03/11/20 23 023 Inactive rosuvastatin 20 mg tablet RxNorm: 847234 Take 1 Tablet(s) Oral QD 02/26/20 23 023 Inactive d/c pravastatin 80mg Ozempic 1 mg/dose (4 mg/3 mL) subcutaneous pen injector RxNorm: 2706826 Inject 1 Milligram(s) Subcutaneous QW once a week 02/20/20 23 023 Inactive pregabalin 150 mg capsule RxNorm: 440806 Take 1 Capsule(s) Oral HS at bed time 02/19/20 23 023 Inactive pregabalin 100 mg capsule RxNorm: 118989 Take 1 Capsule(s) Oral QAM every morning 02/18/20 23 023 Inactive venlafaxine ER 75 mg capsule,extended release 24 hr RxNorm: 842938 Take 3 Capsule(s) Oral QD 02/04/20 23 023 Inactive FreeStyle Chema 2 Sensor kit RxNorm: use as directed 02/04/20 23 023 Inactive FreeStyle Chema 2 Sensor kit RxNorm: use as directed 02/04/20 23 024 Inactive fluconazole 150 mg tablet RxNorm: 981288 Take 1 Tablet(s) Oral on day 3 and on day 6 02/03/20 024 Active chlorthalidone 25 mg tablet RxNorm: 806618 Take 1 Tablet(s) Oral QAM every morning 02/03/20 23 No Stop Date Active venlafaxine ER 150 mg capsule,extended release 24 hr RxNorm: 892298 Take 1 Capsule(s) Oral QD 02/03/20 23 023 Inactive acetaminophen 500 mg tablet RxNorm: 688492 1 TABLET ORALLY 3 TIMES DAILY (MAX APAP:4GM/24HR) 12/15/19 23 023 Inactive clotrimazole 1 % topical cream RxNorm: 627178 apply 1g topically to top of feet and in between toes BID 12/09/19 23 023 Inactive potassium chloride ER 20 mEq tablet,extended release RxNorm: 165800 Take 1 Tablet(s) Oral BID 12/09/19 23 024 Inactive d/c 20mEq once daily (sent from hospital) nystatin 100,000 unit/gram topical powder RxNorm: 038427 APPLY TO AFFECTED AREAS TOPICALLY 2 TIMES DAILY 11/21/19 23 024 Inactive Nystop 100,000 unit/gram topical powder RxNorm: 768246 Apply to abd folds, under breasts and L side of groin Topical BID x 14 days, then BID PRN 11/20/19 23 023 Inactive dx: yeast dermatitis Bengay Ultra Strength 4 %-30 %-10 % topical cream RxNorm: 759450 Apply 1 Gram(s) Topical QID PRN to feet and legs for neuropathic pain 11/11/19 024 Inactive clotrimazole 1 % topical cream RxNorm: 821402 Apply 1/2 Gram(s) Topical BID Apply to affected areas of groin, periarea, and abdominal topically 2 times daily 11/10/19 23 023 Inactive hydrocortisone 2.5 % topical cream RxNorm: 803408 Apply 1/2 Gram(s) Topical BID as needed 11/10/19 024 Inactive Humulin R U-500 (Concentrated) Insulin 500 unit/mL subcutaneous soln RxNorm: 198760 Inject 100 Unit(s) Subcutaneous TID 10/07/19 024 Inactive Levemir FlexPen 100 unit/mL (3 mL) solution subcutaneous insulin pen RxNorm: 007023 Inject 30 Unit(s) Subcutaneous BID 10/07/19 023 Inactive Ozempic 0.25 mg or 0.5 mg (2 mg/3 mL) subcutaneous pen injector RxNorm: 6523183 Inject 1/2 Milligram(s) Subcutaneous QW once a week 10/07/19 024 Inactive aripiprazole 15 mg tablet RxNorm: 802840 1/2 TAB (7.5MG) ORALLY DAILY (DX:MAJOR DEPRESSIVE DISORDER) 09/23/19 023 Inactive Lancets,Thin 28 gauge RxNorm: Use 1 as directed QID 09/15/19 23 024 Inactive Accu-Chek Guide test strips RxNorm: Use 1 Test Strip QID 09/15/19 23 023 Inactive ok to substitute with any covered alternative test strip torsemide 20 mg tablet RxNorm: 031393 Take 1 Tablet(s) Oral BID 09/09/19 23 024 Inactive d/c once daily dosing carvedilol 25 mg tablet RxNorm: 522777 Take 1 Tablet(s) Oral QD 08/25/19 23 024 Inactive pregabalin 150 mg capsule RxNorm: 070192 1 Capsule(s) Oral HS at bed time 08/18/19 023 Inactive pregabalin 100 mg capsule RxNorm: 761053 1 Capsule(s) Oral QAM every morning 08/18/19 23 023 Inactive carvedilol 25 mg tablet RxNorm: 843012 1 Tablet(s) Oral QD 07/28/19 23 023 Inactive lisinopril 20 mg tablet RxNorm: 044948 Give 1 Tablet(s) Oral QD 07/28/19 23 023 Inactive Lyrica 150 mg capsule RxNorm: 148130 Take 1 Capsule(s) Oral QHS every night at bedtime 07/19/19 023 Inactive d/c 100mg dose Diflucan 150 mg tablet RxNorm: 048317 Take 1 Tablet(s) Oral QD repeat on day 3 and 6 07/19/19 23 023 Inactive pregabalin 100 mg capsule RxNorm: 280742 Take 1 Capsule(s) Oral QAM every morning 07/19/19 023 Inactive gatifloxacin 0.5 % eye drops RxNorm: 523851 Instill 1 Drop(s) as directed TID Instill 1 drop in to affected eye(s) starting 1 day prior to surgery and continue until gone (do not exceed 4 weeks). 07/13/19 23 023 Inactive carvedilol 25 mg tablet RxNorm: 829671 2 Tablet(s) Oral BID 07/13/19 023 Inactive Humulin R Regular U-100 Insulin 100 unit/mL injection solution RxNorm: 569152 85 Unit(s) Injection TID 07/13/19 23 023 Inactive ketorolac 0.5 % eye drops RxNorm: 047666 Instill 1 Drop(s) as directed QID Instill 1 drop into affected eye(s) 4 times daily starting 1 day prior to surgery and continue until gone (do not exceed 4 weeks). 07/13/19 23 023 Inactive Diflucan 150 mg tablet RxNorm: 931036 Take 1 Tablet(s) Oral QD repeat on day 3 and 6 06/30/19 23 023 Inactive Accu-Chek Guide test strips RxNorm: Use 1 Test Strip QID Use 1 test strip to monitor blood glucose 4 times daily and as needed. Dx:E11.42. 06/23/19 23 023 Inactive ok to substitute with any covered alternative test strip dextromethorphan-gu aifenesin 10 mg-100 mg/5 mL oral liquid RxNorm: 158004 Take 10 Milliliter(s) Oral every 4 hours as needed for cough 06/19/19 23 023 Inactive dextromethorphan-gu aifenesin 10 mg-100 mg/5 mL oral liquid RxNorm: 907178 Take 10 Milliliter(s) Oral every 4 hours as needed for cough 06/19/19 023 Inactive Lyrica 150 mg capsule RxNorm: 844995 Take 1 Capsule(s) Oral QHS every night at bedtime 06/18/19 023 Inactive d/c 100mg dose aripiprazole 15 mg tablet RxNorm: 824303 1/2 TAB (7.5MG) ORALLY DAILY (DX:MAJOR DEPRESSIVE DISORDER) 06/05/19 23 023 Inactive pregabalin 100 mg capsule RxNorm: 173762 1 Capsule(s) Oral QAM every morning 06/02/19 23 023 Inactive Banophen 50 mg capsule RxNorm: 3331991 Take 1 Capsule(s) Oral Q6H every 6 hours as needed 05/19/19 23 No Stop Date Active Novolog Flexpen U-100 Insulin aspart 100 unit/mL (3 mL) subcutaneous RxNorm: 8554565 Inject 10 Unit(s) Subcutaneous QHS every night at bedtime with nighttime snack 04/08/20 22 022 Inactive Novolog Flexpen U-100 Insulin aspart 100 unit/mL (3 mL) subcutaneous RxNorm: 0574931 Inject 42 Unit(s) Subcutaneous TID in addition to sliding scale 04/08/20 22 022 Inactive d/c 36u albuterol sulfate HFA 90 mcg/actuation aerosol inhaler RxNorm: 1048580 Take 2 Puff(s) Inhalation Q4H every four hours as needed as needed for SOB, cough, or wheezing 04/07/20 22 030 Active Banophen 50 mg capsule RxNorm: 2498687 Take 1 Capsule(s) Oral Q6H every 6 hours as needed 04/06/20 023 Inactive diphenhydramine 50 mg tablet RxNorm: 2523630 Take 1 Tablet(s) Oral Q6H every 6 hours as needed 04/06/20 22 022 Inactive diphenhydramine 50 mg tablet RxNorm: 0161921 1 Tablet(s) Oral Q6H every 6 hours as needed 04/06/20 22 022 Inactive Abilify 15 mg tablet RxNorm: 952342 1/2 Tablet(s) Oral QD 03/10/20 023 Inactive Shingrix (PF) 50 mcg/0.5 mL intramuscular suspension, kit RxNorm: 7581886 Administer 1/2 Milliliter(s) Intramuscular QD one time shingrix step 2 ( step 1 given 11/04/21) WITH needle - Nursing please administer upon arrival and once administered post a bridge message with date of administration, flow trader, expiration date, and lot# so we can update [facility] 02/18/20 22 022 Inactive dispense with needle Shingrix (PF) 50 mcg/0.5 mL intramuscular suspension, kit RxNorm: 5866929 Administer 1/2 Milliliter(s) Intramuscular QD one time shingrix step 2 ( step 1 given 11/04/21) WITH needle - Nursing please administer upon arrival and once administered post a bridge message with date of administration, flow trader, expiration date, and lot# so we can update [facility] 02/18/20 22 022 Inactive dispense with needle polyethylene glycol 3350 17 gram/dose oral powder RxNorm: 743077 Take 17=1 capful Gram(s) Oral QD mix with 4-8oz of liquid 01/08/20 22 023 Inactive take this in addition to BID prn order Lyrica 100 mg capsule RxNorm: 282120 Take 1 Capsule(s) Oral QAM every morning 01/08/20 22 022 Inactive d/c 50mg dose acetaminophen 500 mg tablet RxNorm: 032158 Take 1 Tablet(s) Oral TID 01/08/20 22 022 Inactive d/c PRN order Lyrica 150 mg capsule RxNorm: 760243 Take 1 Capsule(s) Oral QHS every night at bedtime 01/08/20 22 023 Inactive d/c 100mg dose Abilify 5 mg tablet RxNorm: 356212 Take 1 Tablet(s) Oral QD take 1 tab po QD #30 refill 5 dx: MDD 12/12/19 22 022 Inactive Abilify 5 mg tablet RxNorm: 560502 Take 1 Tablet(s) Oral QD take 1 tab po QD #30 refill 5 dx: MDD 12/12/19 22 022 Inactive Novolog Flexpen U-100 Insulin aspart 100 unit/mL (3 mL) subcutaneous RxNorm: 1115354 Inject 42 Unit(s) Subcutaneous TID in addition to sliding scale 12/10/19 22 022 Inactive d/c 36u chlorthalidone 25 mg tablet RxNorm: 319524 Take 1 Tablet(s) Oral QAM every morning 12/10/19 22 023 Inactive pregabalin 50 mg capsule RxNorm: 231215 Take 1 Capsule(s) Oral QAM every morning 11/12/19 22 022 Inactive tetanus-diphtheria toxoids-Td 2 Lf unit-2 Lf unit/0.5 mL IM suspension RxNorm: 139 Take 0.5 Miscellaneous Intramuscular 11/12/19 22 022 Inactive need tdap - nursing to administer upon arrival pregabalin 50 mg capsule RxNorm: 131870 Take 1 Capsule(s) Oral QAM every morning 10/16/19 22 022 Inactive pregabalin 50 mg capsule RxNorm: 095037 Take 1 Capsule(s) Oral QAM every morning 10/16/19 22 022 Inactive pregabalin 50 mg capsule RxNorm: 553079 1 Capsule(s) Oral QAM every morning 10/15/19 22 022 Inactive Shingrix (PF) 50 mcg/0.5 mL intramuscular suspension, kit RxNorm: 8437501 Administer 1/2 Milliliter(s) Intramuscular one time Nursing please administer upon arrival and once administered post a bridge message with date of administration, flow trader, expiration date, and lot# so we can update [facility]. 10/09/19 22 022 Inactive shingrix step 1 Shingrix (PF) 50 mcg/0.5 mL intramuscular suspension, kit RxNorm: 9242918 Administer 1/2 Milliliter(s) Intramuscular one time Nursing please administer upon arrival and once administered post a bridge message with date of administration, flow trader, expiration date, and lot# so we can update [facility]. 10/09/19 22 022 Inactive shingrix step 1 cholecalciferol (vitamin D3) 1,250 mcg (50,000 unit) capsule RxNorm: 819136 Take 1 Capsule(s) Oral QW once a [...] aspart 100 unit/mL (3 mL) subcutaneous RxNorm: 8547645 Inject 10 Unit(s) Subcutaneous QHS every night at bedtime with nighttime snack 10/08/19 22 Inactive Shingrix (PF) 50 mcg/0.5 mL intramuscular suspension, kit RxNorm: 1009249 ADMINISTER 2-DOSE SERIES PER CDC GUIDELINES 10/08/19 22 Active Shingrix (PF) 50 mcg/0.5 mL intramuscular suspension, kit RxNorm: 9710949 ADMINISTER 2-DOSE SERIES PER CDC GUIDELINES 10/08/19 22 022 Inactive Novolog Flexpen U-100 Insulin aspart 100 unit/mL (3 mL) subcutaneous RxNorm: 5197869 Inject 36 Unit(s) Subcutaneous TID in addition to sliding scale 10/08/19 22 Inactive Novofine Autocover 30 gauge x 1/3 needle RxNorm: Use 1 Miscellaneous UD as directed Use 1 needle as directed to administer insulin 5 times a day Dx:E11.42. 10/03/19 22 Inactive ok to substitute with any covered alternative pen needle benzoyl peroxide 10 % topical cleanser RxNorm: 646102 Apply 1 Application Topical QD apply to face, wash rinse and dry once daily (may change to QOD if drying) 08/19/19 22 022 Inactive (%covered by insurance) #60ml refill 11 dx: acne benzoyl peroxide 10 % topical cleanser RxNorm: 708213 Apply 1 Application Topical QD apply to face, wash rinse and dry once daily (may change to QOD if drying) 08/19/19 22 022 Inactive (%covered by insurance) #60ml refill 11 dx: acne benzoyl peroxide 10 % topical cleanser RxNorm: 165860 Apply 1 Application Topical QD apply to face, wash rinse and dry once daily (may change to QOD if drying) 08/19/19 022 Inactive (%covered by insurance) #60ml refill 11 dx: acne Lyrica 50 mg capsule RxNorm: 543217 Take 1 Capsule(s) Oral QAM every morning Take 1 capsule by mouth once daily 08/19/19 022 Inactive benzoyl peroxide 10 % topical cleanser RxNorm: 312147 Apply 1 Application Topical QD apply to face, wash rinse and dry once daily (may change to QOD if drying) 08/19/19 22 022 Inactive (%covered by insurance) #60ml refill 11 dx: acne Lyrica 100 mg capsule RxNorm: 681175 Take 1 Capsule(s) Oral QHS every night at bedtime Take 1 capsule by mouth once daily at bedtime 08/19/19 22 022 Inactive Lyrica 100 mg capsule RxNorm: 874102 Take 1 Capsule(s) Oral QHS every night at bedtime Take 1 capsule by mouth once daily at bedtime 08/16/19 22 022 Inactive Lyrica 50 mg capsule RxNorm: 234613 Take 1 Capsule(s) Oral QAM every morning Take 1 capsule by mouth once daily 08/16/19 22 04/01/2 022 Inactive Levemir FlexTouch U-100 Insulin 100 unit/mL (3 mL) subcutaneous pen RxNorm: 156649 Inject 86 Unit(s) Subcutaneous BID 08/05/19 22 022 Inactive d/c 83units BID Lyrica 100 mg capsule RxNorm: 802576 Take 1 Capsule(s) Oral QHS every night at bedtime Take 1 capsule by mouth once daily at bedtime 07/14/19 22 022 Inactive Lyrica 50 mg capsule RxNorm: 612500 Take 1 Capsule(s) Oral QAM every morning Take 1 capsule by mouth once daily 07/14/19 22 022 Inactive Levemir FlexTouch U-100 Insulin 100 unit/mL (3 mL) subcutaneous pen RxNorm: 942518 Inject 83 Unit(s) Subcutaneous BID 07/08/19 22 [...] test strip hydralazine 50 mg tablet RxNorm: 359009 Take 1 Tablet(s) Oral QID 05/05/20 21 022 Inactive venlafaxine ER 225 mg tablet,extended release 24 hr RxNorm: 061061 Take 1 Tablet(s) Oral QD 05/05/20 021 Inactive venlafaxine ER 225 mg tablet,extended release 24 hr RxNorm: 539523 Take 1 Tablet(s) Oral QD 05/05/20 022 Inactive isosorbide mononitrate ER 30 mg tablet,extended release 24 hr RxNorm: 231352 Take 1 Tablet(s) Oral QD 05/05/20 024 Inactive hydralazine 50 mg tablet RxNorm: 016828 Take 1 Tablet(s) Oral QID 05/05/20 021 Inactive aspirin 81 mg tablet,delayed release RxNorm: 805480 Take 1 Tablet(s) Oral QD 03/31/20 022 Inactive Vitamin D2 1,250 mcg (50,000 unit) capsule RxNorm: 8706520 Take 1 Capsule(s) Oral QW once a week x 12 weeks 03/31/20 022 Inactive Vitamin D2 1,250 mcg (50,000 unit) capsule RxNorm: 5356303 Take 1 Capsule(s) Oral QW once a week 03/31/20 021 Inactive Zetia 10 mg tablet RxNorm: 176982 Take 1 Tablet(s) Oral QD 03/31/20 024 Inactive Zetia 10 mg tablet RxNorm: 683629 Take 1 Tablet(s) Oral QD 03/31/20 021 Inactive hydralazine 25 mg tablet RxNorm: 527584 Take 1 Tablet(s) Oral QID 03/31/20 21 021 Inactive hydralazine 25 mg tablet RxNorm: 966037 Take 1 Tablet(s) Oral QID 03/31/20 021 Inactive hydralazine 10 mg tablet RxNorm: 580071 Take 1 Tablet(s) Oral QID 03/03/20 021 Inactive cephalexin 500 mg tablet RxNorm: 795323 Take 1 Tablet(s) Oral QID 02/27/20 021 Inactive cephalexin 500 mg tablet RxNorm: 575214 Take 1 Tablet(s) Oral QID 02/27/20 021 Inactive lisinopril 40 mg tablet RxNorm: 694054 Take 1 Tablet(s) Oral QD 02/11/20 023 Inactive Eliquis 5 mg tablet RxNorm: 8496531 Take 1 Tablet(s) Oral BID 01/05/20 022 Inactive Eliquis 5 mg tablet RxNorm: 3197095 Take 2 Tablet(s) Oral QD 01/01/20 21 021 Inactive Lyrica 50 mg capsule RxNorm: 141041 Take 1 Capsule(s) Oral QAM every morning 12/24/19 21 021 Inactive Lyrica 100 mg capsule RxNorm: 259444 Take 1 Capsule(s) Oral QHS every night at bedtime 12/24/19 021 Inactive clotrimazole 1 % topical cream RxNorm: 306227 Apply to right foot and toes Topical BID 12/04/19 21 023 Inactive metoprolol succinate ER 200 mg tablet,extended release 24 hr RxNorm: 664262 Take 1 Tablet(s) Oral QD 12/04/19 023 Inactive ciprofloxacin 500 mg tablet RxNorm: 874303 Take 1 Tablet(s) Oral QD 11/30/19 21 021 Inactive DX ofloxacin otic drops Accu-Chek Guide test strips RxNorm: USE 1 TO CHECK GLUCOSE 4 TIMES DAILY AND NEEDED 11/15/19 21 023 Inactive Blood Glucose Test strips RxNorm: Use 1 Test Strip QID at PRN 11/05/19 21 023 Inactive E11.42 lisinopril 30 mg tablet RxNorm: 065930 Take 1 Tablet(s) Oral QD 10/30/19 21 021 Inactive lisinopril 20 mg tablet RxNorm: 811175 Take 1 Tablet(s) Oral QD 10/23/19 21 021 Inactive lisinopril 20 mg tablet RxNorm: 373579 Take 1 Tablet(s) Oral QD 10/23/19 21 021 Inactive lisinopril 10 mg tablet RxNorm: 945324 Take 1 Tablet(s) Oral QD 10/02/19 21 021 Inactive icosapent ethyl 1 gram capsule RxNorm: 7001336 Take 2 Capsule(s) (2 gm) Oral BID with meals 09/12/19 024 Inactive Okay to dispense one 2gm tab if you have that available. icosapent ethyl 1 gram capsule RxNorm: 7618947 Take 2 Capsule(s) Oral BID 09/12/19 21 021 Inactive Okay to dispense one 2gm tab if you have that available. amlodipine 10 mg tablet RxNorm: 690795 Take 1 Tablet(s) Oral QD 09/04/19 21 022 Inactive aspirin 81 mg tablet,delayed release RxNorm: 427525 Take 1 Tablet(s) Oral QD 09/04/19 21 021 Inactive Levemir FlexTouch U-100 Insulin 100 unit/mL (3 mL) subcutaneous pen RxNorm: 139210 Inject 150 Unit(s) Subcutaneous BID 09/04/19 21 022 Inactive venlafaxine ER 150 mg tablet,extended release 24 hr RxNorm: 509048 Take 1 Tablet(s) Oral QD 09/04/19 21 021 Inactive clotrimazole-betame thasone 1 %-0.05 % topical cream RxNorm: 298251 Apply to rash on red area on left abdomen/chest Topical BID 08/10/19 21 021 Inactive amlodipine 5 mg tablet RxNorm: 644431 Take 1 Tablet(s) Oral QD 07/31/19 21 021 Inactive cephalexin 500 mg tablet RxNorm: 314016 Take 1 Tablet(s) Oral BID BID - Twice Daily 07/31/19 21 021 Inactive Start 08/01/20 pantoprazole 40 mg tablet,delayed release RxNorm: 441749 Take 1 Tablet(s) Oral QAM every morning 07/08/19 21 022 Inactive senna 8.6 mg tablet RxNorm: 066005 Take 1 Tablet(s) Oral QD 07/08/19 022 Inactive carbamazepine 200 mg tablet RxNorm: 541734 Take 1 Tablet(s) Oral BID 07/08/19 022 Inactive clopidogrel 75 mg tablet RxNorm: 170836 Take 1 Tablet(s) Oral QD 07/08/19 021 Inactive Blood Glucose Test strips RxNorm: Use 1 Test Strip QID at PRN 07/08/19 21 Inactive E11.42 Novolog Flexpen U-100 Insulin aspart 100 unit/mL (3 mL) subcutaneous RxNorm: 0789506 Administer per sliding scale Milliliter(s) Subcutaneous TID 151-200: 10 u; 201-250: 20 u; 251-300: 30 u; 301-350: 40 u; 351-400: 50 u. 07/08/19 022 Inactive lisinopril 5 mg tablet RxNorm: 075488 Take 1 Tablet(s) Oral QD 07/08/19 021 Inactive Novolog Flexpen U-100 Insulin aspart 100 unit/mL (3 mL) subcutaneous RxNorm: 0517391 Inject 85 Unit(s) Subcutaneous TID 07/08/19 022 Inactive pravastatin 80 mg tablet RxNorm: 732991 Take 1 Tablet(s) Oral QHS every night at bedtime 07/08/19 023 Inactive clotrimazole 1 % topical cream RxNorm: 657591 Apply to bilateral groin areas Topical BID 07/08/19 022 Inactive metoprolol succinate ER 200 mg tablet,extended release 24 hr RxNorm: 690722 Take 1 Tablet(s) Oral QD 07/08/19 021 Inactive Vitamin D3 25 mcg (1,000 unit) tablet RxNorm: 849032 Take 1 Tablet(s) Oral QD 07/08/19 21 021 Inactive isosorbide dinitrate 30 mg tablet RxNorm: 172378 Take 1 Tablet(s) Oral QD 07/08/19 Inactive Levemir FlexTouch U-100 Insulin 100 unit/mL (3 mL) subcutaneous pen RxNorm: 688716 Inject 140 Unit(s) Subcutaneous BID 07/08/19 021 Inactive torsemide 20 mg tablet RxNorm: 401698 Take 1 Tablet(s) Oral QD 07/08/19 21 023 Inactive venlafaxine 75 mg tablet RxNorm: 375969 Take 1 Tablet(s) Oral QD 07/08/19 Inactive acetaminophen 500 mg tablet RxNorm: 732205 Take 1 Tablet(s) Oral TID as needed for headache 06/18/19 021 Inactive acetaminophen 500 mg tablet RxNorm: 980054 Take 1 Tablet(s) Oral TID as needed for headache 06/18/19 021 Inactive Lyrica 100 mg capsule RxNorm: 415995 Take 1 Capsule(s) Oral QHS every night at bedtime 06/11/19 21 021 Inactive Lyrica 50 mg capsule RxNorm: 859488 Take 1 Capsule(s) Oral QAM every morning 06/10/19 21 021 Inactive hydrocortisone 2.5 % topical cream RxNorm: 557742 Apply to bilateral groin creases Topical BID 05/15/20 20 021 Inactive clotrimazole 1 % topical cream RxNorm: 311808 Apply to bilateral groin areas Topical BID 05/15/20 20 021 Inactive Lyrica 50 mg capsule RxNorm: 996304 Take 1 Capsule(s) Oral QAM every morning 05/14/20 20 Inactive Lyrica 100 mg capsule RxNorm: 083027 Take 1 Capsule(s) Oral QHS every night [...] Inactive Nystop 100,000 unit/gram topical powder RxNorm: 834008 Apply to abd folds, under breasts and L side of groin Topical BID x 14 days, then BID PRN 04/08/20 20 Inactive dx: yeast dermatitis Lyrica 100 mg capsule RxNorm: 129282 Take 1 Capsule(s) Oral QHS every night at bedtime 03/13/20 20 Inactive Lyrica 50 mg capsule RxNorm: 425503 Take 1 Capsule(s) Oral QAM every morning 03/13/20 20 Inactive ketoconazole 2 % shampoo RxNorm: 520081 Apply Topical two times a week with showers 03/11/20 20 Inactive cholecalciferol (vitamin D3) 50 mcg (2,000 unit) tablet RxNorm: 685683 Take 1 Tablet(s) Oral QD 03/11/20 20 Inactive Zetia 10 mg tablet RxNorm: 914940 Take 1 Tablet(s) Oral QD 03/07/20 20 021 Inactive Zetia 10 mg tablet RxNorm: 708119 Take 1 Tablet(s) Oral QD 03/07/20 20 Inactive Lyrica 50 mg capsule RxNorm: 192399 Take 1 Capsule(s) Oral QAM every morning 02/15/20 20 Inactive Lyrica 100 mg capsule RxNorm: 386250 Take 1 Capsule(s) Oral QHS every night at bedtime 02/15/20 20 10/01/2 020 Inactive Lyrica 100 mg capsule RxNorm: 140221 Take 1 Capsule(s) Oral QHS every night at bedtime 02/15/20 20 Inactive Lyrica 50 mg capsule RxNorm: 646003 Take 1 Capsule(s) Oral QAM every morning 02/15/20 20 Inactive metoprolol succinate ER 200 mg tablet,extended release 24 hr RxNorm: 160814 Take 1 Tablet(s) Oral QD 08/12/19 23 Active loperamide 2 mg capsule RxNorm: 123561 Take 1 Capsule(s) Oral QID as needed 06/12/19 22 Active hydralazine 50 mg tablet RxNorm: 123897 Take 1 Tablet(s) Oral QID 08/12/19 23 Active venlafaxine ER 75 mg capsule,extended release 24 hr RxNorm: 837829 Take 3 Capsule(s) Oral QD 06/12/19 22 023 Inactive polyethylene glycol 3350 17 gram/dose oral powder RxNorm: 163630 Take 17=1 capful Gram(s) Oral BID as needed mix with 4-8oz of liquid 06/12/19 22 024 Inactive icosapent ethyl 1 gram capsule RxNorm: 9737184 Take 2 Capsule(s) (2 gm) Oral BID with meals 10/07/19 23 023 Inactive Okay to dispense one 2gm tab if you have that available. Levemir FlexTouch U-100 Insulin 100 unit/mL (3 mL) subcutaneous pen RxNorm: 359812 Inject 80 Unit(s) Subcutaneous BID 07/14/19 23 023 Inactive Novolog Flexpen U-100 Insulin aspart 100 unit/mL (3 mL) subcutaneous RxNorm: 3009175 Insert 30 Unit(s) Subcutaneous TID with meals 10/08/19 22 022 Inactive Medication Administered No Medication Administered data Reason For Visit No Reason For Visit data Plan of Care Planned Activity Notes Codes Status Date Patient Education: Patient Medication Summary Completed 01/05/2024 Appointment: Sandra Clark WPtel: [address] [place], [place] [id number] [place] Telehealth Psych Follow Up 12/09 Appointment: Tapan Shirley WPtel: [address] [facility] [address] [id number] [place] [facility] 10/26/2022 Referral: [facility] [address] [facility] [address] [id number] Referral Records Received 09/21/2022 Appointment: Tapan Shirley WPtel: [address] [facility] [address] [id number] [place] F/U 08/11/2022 Appointment: Tapan Shirley WPtel: [address] [facility] [address] [id number] [place] F/U 07/14/2022 Appointment: Tapan Shirley WPtel: [address] [facility] [address] [id number] [place] F/U 02/10/2022 Referral: [facility] WPtel: [address] [facility] [address] [id number] [place] Referral Completed 05/28/2021 Referral: General Cardiology [...] Sister Jyotsna involved in his care cell# [phone] Guardian: Giulia (tapan met in person 09/01/21), now has Lexii (same group as giulia)Lab Schedule: Mar-/September*September (CBC with diff, CMP, A1c) March: (CBC, CMP, A1c, Lipids, VitD)5.31.2023: CBC, CMP Na 139, K2.6L, creat 1.45H, [...] note from 11.08.2023 at [facility] (follow up 6 months)Colon & Rectal Surgery visit scheduled for 03/08/24 with Matilde Pérez PA-C. 01/05/2024
--- OUTSIDE RECORDS SUMMARY | 2024-01-13 05:39 | XMS_ITS | CCD ---
Author Name Cecilio Durham feliberto Address [address] [place] [address] Phone Organization [facility] Phone Care Team Providers Care Svp Operations Name Role Phone Harrison Durham Primary Care Provider Leona vailable Harrison Durham Chronic Care Management U navailable Summary Purpose DataExchange Insurance Providers Payer name Policy type / Coverage type Covered constitution party ID Effective Begin Date Effective End Date Medicare [place] Medicare Part B [id number] Unknown Unknown Medicaid [place] Medicare Part B [id number] Unknown Unknown Family history Sister Brittany Suggs [...] Unknown Custodial 09/03/[address]: 5878759 Non-Smoker / No History of Smoking 09/02/[address]: [id number] No Alcohol Consum ption 09/02/2020 Allergies, Adverse Reactions, Alerts Substance Reaction Codes Entered Date Inactivated Date Status * NO KNOWN FOOD ALLERGIES Unknown 07/13/2023 No Inactive Date Active LISINOPRIL RxNorm: 74744 02/12/2020 No Inactive Da te Active Metformin HCl Unknown 02/12/2020 No Inactive Cristiano e Active * NO KNOWN ENVIRONMENTAL ALLERGIES Unknown 07/13/2023 No Inactive Date Active Problems Condition Codes Effective Dates Condition St atus BMI 60.0-69.9, adult ICD-10: Z68.44 ICD-9: V85.44 01/11/2024 Active Low back pain ICD-10: M54.50 ICD-9: 724.2 01/11/2024 Active Lower extremity edema ICD-10: R60.0 ICD-9: 782.3 01/11/2024 Active Onychogryposis ICD-10: L60.2 ICD-9: 703.8 01/11/2024 Active Physical deconditioning ICD-10: R53.81 ICD-9: 799.3 01/11/2024 Active Pressure ulcer of left calf, unstageable ICD-10: L89.890 ICD-9: 707.09 01/11/2024 Active PVD (peripheral vascular disease) ICD-10 : I73.9 ICD-9: 443.9 01/11/2024 Active Seizure disorder ICD-10: G40.909 ICD-9: 345.90 01/11/2024 Active 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 [...] Hypokalemia ICD-10: E87.6 ICD-9: 276.8 11/09/2023 Active Major depression, recurrent ICD-10: F33. 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 Other chcf (current) dr ug therapy ICD-10: Z79.899 ICD-9: [...] 09/07/2023 Resolved Coronary artery disease invo lving [place] coronary artery of [place] heart, angina presence unspecified ICD-10: I25.10 ICD-9: [...] Fill Instructions cephalexin 500 mg capsule RxNorm: 931694 Take 1 Capsule(s) Oral QID 12/17/19 24 024 Inactive cephalexin 500 mg capsule RxNorm: 939554 Take 1 Capsule(s) Oral QID 12/17/19 24 024 Inactive acetaminophen 500 mg tablet RxNorm: 234574 (MAX APAP:4GM/24HR) Take 1 Tablet(s) Oral TID as needed for pain 12/10/19 24 024 Active torsemide 20 mg tablet RxNorm: 214550 Take 1 Tablet(s) Oral QD 10/26/19 24 024 Inactive potassium chloride ER 20 mEq tablet,extended release RxNorm: 034406 Take 2 Tablet(s) Oral BID 10/26/19 24 025 Active torsemide 20 mg tablet RxNorm: 596355 Take 1 Tablet(s) Oral QD 10/26/19 24 024 Inactive potassium chloride ER 20 mEq tablet,extended release RxNorm: 243815 Take 2 Tablet(s) Oral BID 10/26/19 24 024 Inactive Artificial Tears (PF) 0.1 %-0.3 % drops in a dropperette RxNorm: 109413 Apply 1-2 Drop(s) Both eyes BID as needed 09/28/19 24 025 Active erythromycin 5 mg/gram (0.5 %) eye ointment RxNorm: 076502 Apply 1 Application Both eyes QHS every night at bedtime Instill ~1 cm ribbon into affected eye 09/28/19 Inactive Artificial Tears (PF) 0.1 %-0.3 % drops in a dropperette RxNorm: 124715 Apply 1-2 Drop(s) Both eyes BID as needed 09/28/19 Inactive erythromycin 5 mg/gram (0.5 %) eye ointment RxNorm: 802825 Apply 1 Application Both eyes QHS every night at bedtime Instill ~1 cm ribbon into affected eye 09/28/19 Inactive acetaminophen 500 mg tablet RxNorm: 639956 (MAX APAP:4GM/24HR) Take 1 Tablet(s) Oral TID as needed for pain 09/24/19 Inactive carvedilol 25 mg tablet RxNorm: 459862 Take 1 Tablet(s) Oral QD 09/08/19 24 No Stop Date Active pregabalin 100 mg capsule RxNorm: 932402 Take 1 Capsule(s) Oral QAM every morning 09/07/19 24 Inactive rosuvastatin 40 mg tablet RxNorm: 521350 Take 1 Tablet(s) Oral QPM every evening 07/13/19 24 No Stop Date Active ezetimibe 10 mg tablet RxNorm: 601651 Take 1 Tablet(s) Oral QD 07/13/19 24 No Stop Date Active bisacodyl 10 mg rectal suppository RxNorm: 871458 Insert 1 Suppository Rectal QD as needed 07/13/19 24 No Stop Date Active polyethylene glycol 3350 17 gram/dose oral powder RxNorm: 950848 Take 17 Gram(s) Oral BID as needed mix in 4-8ox water 07/13/19 24 No Stop Date Active ketoconazole 2 % shampoo RxNorm: 998897 Apply 1 Application Topical UD as directed 07/13/19 24 No Stop Date Active aripiprazole 15 mg tablet RxNorm: 665216 Take 1/2 Tablet(s) Oral QD 07/13/19 24 No Stop Date Active Ozempic 1 mg/dose (4 mg/3 mL) subcutaneous pen injector RxNorm: 4066623 Inject 1 Milligram(s) Subcutaneous QW once a week 07/13/19 24 No Stop Date Active Guaifenesin AC 10 mg-100 mg/5 mL oral liquid RxNorm: 492635 Take 10 Milliliter(s) Oral Q4H every four hours as needed 07/13/19 24 No Stop Date Active isosorbide mononitrate ER 60 mg tablet,extended release 24 hr RxNorm: 043001 Take 1 Tablet(s) Oral QD 07/13/19 24 No Stop Date Active ammonium lactate 12 % topical cream RxNorm: 494845 Apply 1 Application Topical BID 07/13/19 24 No Stop Date Active hydrocortisone 2.5 % topical cream RxNorm: 841363 Apply 1 Application Topical BID as needed 07/13/19 24 No Stop Date Active rosuvastatin 20 mg sprinkle capsule RxNorm: 3029766 Take 1 Capsule(s) Oral QD 07/13/19 24 No Stop Date Active Vascepa 1 gram capsule RxNorm: 7405592 Take 2 Capsule(s) Oral BID 07/13/19 24 No Stop Date Active venlafaxine ER 75 mg capsule,extended release 24 hr RxNorm: 774165 Take 3 Capsule(s) Oral QD 07/13/19 24 No Stop Date Active Basaglar KwikPen U-100 Insulin 100 unit/mL (3 mL) subcutaneous RxNorm: 9695239 Inject 30U SubQ twice daily 07/07/19 24 025 Active Please dispense one month supply. Basaglar KwikPen U-100 Insulin 100 unit/mL (3 mL) subcutaneous RxNorm: 4171628 Inject 30U SubQ twice daily 07/07/19 24 024 Inactive Please dispense one month supply. pregabalin 150 mg capsule RxNorm: 651802 Take 1 Capsule(s) Oral QHS every night at bedtime 07/05/19 24 024 Inactive pregabalin 150 mg capsule RxNorm: 167123 Take 1 Capsule(s) Oral QHS every night at bedtime 07/05/19 24 024 Inactive polyethylene glycol 3350 17 gram/dose oral powder RxNorm: 540027 Take 1 Packet Oral QD as needed (1 packet = 17g) mix with 4-8oz of liquid 06/15/19 24 024 Inactive bisacodyl 10 mg rectal suppository RxNorm: 757170 Insert one suppository per rectum once daily as needed for constipation 06/15/19 24 024 Inactive bisacodyl 10 mg rectal suppository RxNorm: 223991 Insert one suppository per rectum once daily as needed for constipation 06/15/19 24 024 Inactive pregabalin 100 mg capsule RxNorm: 551932 Take 1 Capsule(s) Oral QAM every morning 04/27/20 23 024 Inactive Levemir FlexPen 100 unit/mL (3 mL) solution subcutaneous insulin pen RxNorm: 378652 Inject 30 Unit(s) Subcutaneous BID 04/27/20 23 024 Inactive rosuvastatin 40 mg tablet RxNorm: 137014 Take 1 Tablet(s) Oral QPM every evening 04/16/20 024 Inactive D/C rosuvastatin 20mg venlafaxine ER 75 mg capsule,extended release 24 hr RxNorm: 674884 Take 3 Capsule(s) Oral QD 04/14/20 23 023 Inactive pregabalin 100 mg capsule RxNorm: 196084 Take 1 Capsule(s) Oral QAM every morning [...] meter clotrimazole 1 % topical cream RxNorm: 896837 Take apply topically to abdominal folds twice daily for 14 days 03/12/20 024 Inactive Ozempic 1 mg/dose (4 mg/3 mL) subcutaneous pen injector RxNorm: 8304915 Inject 1 Milligram(s) Subcutaneous QW once a week 03/11/20 23 023 Inactive rosuvastatin 20 mg tablet RxNorm: 959163 Take 1 Tablet(s) Oral QD 02/26/20 23 023 Inactive d/c pravastatin 80mg Ozempic 1 mg/dose (4 mg/3 mL) subcutaneous pen injector RxNorm: 0661353 Inject 1 Milligram(s) Subcutaneous QW once a week 02/20/20 23 023 Inactive pregabalin 150 mg capsule RxNorm: 544883 Take 1 Capsule(s) Oral HS at bed time 02/19/20 23 023 Inactive pregabalin 100 mg capsule RxNorm: 005857 Take 1 Capsule(s) Oral QAM every morning 02/18/20 023 Inactive venlafaxine ER 75 mg capsule,extended release 24 hr RxNorm: 673236 Take 3 Capsule(s) Oral QD 02/04/20 023 Inactive FreeStyle Chema 2 Sensor kit RxNorm: use as directed 02/04/20 23 023 Inactive FreeStyle Chema 2 Sensor kit RxNorm: use as directed 02/04/20 23 024 Inactive fluconazole 150 mg tablet RxNorm: 651061 Take 1 Tablet(s) Oral on day 3 and on day 6 02/03/20 024 Active chlorthalidone 25 mg tablet RxNorm: 613163 Take 1 Tablet(s) Oral QAM every morning 02/03/20 23 No Stop Date Active venlafaxine ER 150 mg capsule,extended release 24 hr RxNorm: 126459 Take 1 Capsule(s) Oral QD 02/03/20 23 023 Inactive acetaminophen 500 mg tablet RxNorm: 006286 1 TABLET ORALLY 3 TIMES DAILY (MAX APAP:4GM/24HR) 12/15/19 23 023 Inactive clotrimazole 1 % topical cream RxNorm: 541839 apply 1g topically to top of feet and in between toes BID 12/09/19 23 023 Inactive potassium chloride ER 20 mEq tablet,extended release RxNorm: 912855 Take 1 Tablet(s) Oral BID 12/09/19 23 024 Inactive d/c 20mEq once daily (sent from hospital) nystatin 100,000 unit/gram topical powder RxNorm: 354671 APPLY TO AFFECTED AREAS TOPICALLY 2 TIMES DAILY 11/21/19 23 024 Inactive Nystop 100,000 unit/gram topical powder RxNorm: 952202 Apply to abd folds, under breasts and L side of groin Topical BID x 14 days, then BID PRN 11/20/19 023 Inactive dx: yeast dermatitis Bengay Ultra Strength 4 %-30 %-10 % topical cream RxNorm: 788265 Apply 1 Gram(s) Topical QID PRN to feet and legs for neuropathic pain 11/11/19 23 024 Inactive clotrimazole 1 % topical cream RxNorm: 763670 Apply 1/2 Gram(s) Topical BID Apply to affected areas of groin, periarea, and abdominal topically 2 times daily 11/10/19 23 023 Inactive hydrocortisone 2.5 % topical cream RxNorm: 570642 Apply 1/2 Gram(s) Topical BID as needed 11/10/19 024 Inactive Humulin R U-500 (Concentrated) Insulin 500 unit/mL subcutaneous soln RxNorm: 043051 Inject 100 Unit(s) Subcutaneous TID 10/07/19 024 Inactive Levemir FlexPen 100 unit/mL (3 mL) solution subcutaneous insulin pen RxNorm: 316346 Inject 30 Unit(s) Subcutaneous BID 10/07/19 023 Inactive Ozempic 0.25 mg or 0.5 mg (2 mg/3 mL) subcutaneous pen injector RxNorm: 8209509 Inject 1/2 Milligram(s) Subcutaneous QW once a week 10/07/19 024 Inactive aripiprazole 15 mg tablet RxNorm: 496431 1/2 TAB (7.5MG) ORALLY DAILY (DX:MAJOR DEPRESSIVE DISORDER) 09/23/19 23 023 Inactive Lancets,Thin 28 gauge RxNorm: Use 1 as directed QID 09/15/19 23 024 Inactive Accu-Chek Guide test strips RxNorm: Use 1 Test Strip QID 09/15/19 23 023 Inactive ok to substitute with any covered alternative test strip torsemide 20 mg tablet RxNorm: 802569 Take 1 Tablet(s) Oral BID 09/09/19 23 024 Inactive d/c once daily dosing carvedilol 25 mg tablet RxNorm: 812754 Take 1 Tablet(s) Oral QD 08/25/19 23 024 Inactive pregabalin 150 mg capsule RxNorm: 810824 1 Capsule(s) Oral HS at bed time 08/18/19 23 023 Inactive pregabalin 100 mg capsule RxNorm: 992040 1 Capsule(s) Oral QAM every morning 08/18/19 23 023 Inactive carvedilol 25 mg tablet RxNorm: 791397 1 Tablet(s) Oral QD 07/28/19 23 023 Inactive lisinopril 20 mg tablet RxNorm: 817103 Give 1 Tablet(s) Oral QD 07/28/19 23 023 Inactive Lyrica 150 mg capsule RxNorm: 234455 Take 1 Capsule(s) Oral QHS every night at bedtime 07/19/19 23 023 Inactive d/c 100mg dose Diflucan 150 mg tablet RxNorm: 721210 Take 1 Tablet(s) Oral QD repeat on day 3 and 6 07/19/19 23 023 Inactive pregabalin 100 mg capsule RxNorm: 278302 Take 1 Capsule(s) Oral QAM every morning 07/19/19 23 023 Inactive gatifloxacin 0.5 % eye drops RxNorm: 079271 Instill 1 Drop(s) as directed TID Instill 1 drop in to affected eye(s) starting 1 day prior to surgery and continue until gone (do not exceed 4 weeks). 07/13/19 23 023 Inactive carvedilol 25 mg tablet RxNorm: 915734 2 Tablet(s) Oral BID 07/13/19 23 023 Inactive Humulin R Regular U-100 Insulin 100 unit/mL injection solution RxNorm: 255609 85 Unit(s) Injection TID 07/13/19 23 023 Inactive ketorolac 0.5 % eye drops RxNorm: 142335 Instill 1 Drop(s) as directed QID Instill 1 drop into affected eye(s) 4 times daily starting 1 day prior to surgery and continue until gone (do not exceed 4 weeks). 07/13/19 23 023 Inactive Diflucan 150 mg tablet RxNorm: 844768 Take 1 Tablet(s) Oral QD repeat on day 3 and 6 06/30/19 23 023 Inactive Accu-Chek Guide test strips RxNorm: Use 1 Test Strip QID Use 1 test strip to monitor blood glucose 4 times daily and as needed. Dx:E11.42. 06/23/19 23 023 Inactive ok to substitute with any covered alternative test strip dextromethorphan-gu aifenesin 10 mg-100 mg/5 mL oral liquid RxNorm: 309888 Take 10 Milliliter(s) Oral every 4 hours as needed for cough 06/19/19 023 Inactive dextromethorphan-gu aifenesin 10 mg-100 mg/5 mL oral liquid RxNorm: 710505 Take 10 Milliliter(s) Oral every 4 hours as needed for cough 06/19/19 023 Inactive Lyrica 150 mg capsule RxNorm: 578106 Take 1 Capsule(s) Oral QHS every night at bedtime 06/18/19 23 023 Inactive d/c 100mg dose aripiprazole 15 mg tablet RxNorm: 300479 1/2 TAB (7.5MG) ORALLY DAILY (DX:MAJOR DEPRESSIVE DISORDER) 06/05/19 23 023 Inactive pregabalin 100 mg capsule RxNorm: 455383 1 Capsule(s) Oral QAM every morning 06/02/19 23 023 Inactive Banophen 50 mg capsule RxNorm: 8349125 Take 1 Capsule(s) Oral Q6H every 6 hours as needed 05/19/19 23 No Stop Date Active Novolog Flexpen U-100 Insulin aspart 100 unit/mL (3 mL) subcutaneous RxNorm: 1872755 Inject 10 Unit(s) Subcutaneous QHS every night at bedtime with nighttime snack 04/08/20 22 022 Inactive Novolog Flexpen U-100 Insulin aspart 100 unit/mL (3 mL) subcutaneous RxNorm: 8019487 Inject 42 Unit(s) Subcutaneous TID in addition to sliding scale 11 022 Inactive d/c 36u albuterol sulfate HFA 90 mcg/actuation aerosol inhaler RxNorm: 6691268 Take 2 Puff(s) Inhalation Q4H every four hours as needed as needed for SOB, cough, or wheezing 04/07/20 030 Active Banophen 50 mg capsule RxNorm: 8274000 Take 1 Capsule(s) Oral Q6H every 6 hours as needed 04/06/20 023 Inactive diphenhydramine 50 mg tablet RxNorm: 5655986 Take 1 Tablet(s) Oral Q6H every 6 hours as needed 04/06/20 022 Inactive diphenhydramine 50 mg tablet RxNorm: 1557166 1 Tablet(s) Oral Q6H every 6 hours as needed 04/06/20 022 Inactive Abilify 15 mg tablet RxNorm: 181193 1/2 Tablet(s) Oral QD 03/10/20 023 Inactive Shingrix (PF) 50 mcg/0.5 mL intramuscular suspension, kit RxNorm: 6218062 Administer 1/2 Milliliter(s) Intramuscular QD one time shingrix step 2 ( step 1 given 11/04/21) WITH needle - Nursing please administer upon arrival and once administered post a bridge message with date of administration, substance abuse counselor, expiration date, and lot# so we can update [facility] 02/18/20 22 022 Inactive dispense with needle Shingrix (PF) 50 mcg/0.5 mL intramuscular suspension, kit RxNorm: 8967129 Administer 1/2 Milliliter(s) Intramuscular QD one time shingrix step 2 ( step 1 given 11/04/21) WITH needle - Nursing please administer upon arrival and once administered post a bridge message with date of administration, substance abuse counselor, expiration date, and lot# so we can update [facility] 02/18/20 22 022 Inactive dispense with needle polyethylene glycol 3350 17 gram/dose oral powder RxNorm: 975804 Take 17=1 capful Gram(s) Oral QD mix with 4-8oz of liquid 01/08/20 22 023 Inactive take this in addition to BID prn order Lyrica 100 mg capsule RxNorm: 655142 Take 1 Capsule(s) Oral QAM every morning 01/08/20 22 022 Inactive d/c 50mg dose acetaminophen 500 mg tablet RxNorm: 844046 Take 1 Tablet(s) Oral TID 01/08/20 22 022 Inactive d/c PRN order Lyrica 150 mg capsule RxNorm: 908597 Take 1 Capsule(s) Oral QHS every night at bedtime 01/08/20 22 023 Inactive d/c 100mg dose Abilify 5 mg tablet RxNorm: 394535 Take 1 Tablet(s) Oral QD take 1 tab po QD #30 refill 5 dx: MDD 12/12/19 22 022 Inactive Abilify 5 mg tablet RxNorm: 100736 Take 1 Tablet(s) Oral QD take 1 tab po QD #30 refill 5 dx: MDD 12/12/19 22 022 Inactive Novolog Flexpen U-100 Insulin aspart 100 unit/mL (3 mL) subcutaneous RxNorm: 5321816 Inject 42 Unit(s) Subcutaneous TID in addition to sliding scale 12/10/19 22 Inactive d/c 36u chlorthalidone 25 mg tablet RxNorm: 093694 Take 1 Tablet(s) Oral QAM every morning 12/10/19 22 023 Inactive pregabalin 50 mg capsule RxNorm: 477849 Take 1 Capsule(s) Oral QAM every morning 11/12/19 22 022 Inactive tetanus-diphtheria toxoids-Td 2 Lf unit-2 Lf unit/0.5 mL IM suspension RxNorm: 139 Take 0.5 Miscellaneous Intramuscular 11/12/19 22 022 Inactive need tdap - nursing to administer upon arrival pregabalin 50 mg capsule RxNorm: 983426 Take 1 Capsule(s) Oral QAM every morning 10/16/19 22 022 Inactive pregabalin 50 mg capsule RxNorm: 037427 Take 1 Capsule(s) Oral QAM every morning 10/16/19 22 022 Inactive pregabalin 50 mg capsule RxNorm: 518715 1 Capsule(s) Oral QAM every morning 10/15/19 22 Inactive Shingrix (PF) 50 mcg/0.5 mL intramuscular suspension, kit RxNorm: 5601992 Administer 1/2 Milliliter(s) Intramuscular one time Nursing please administer upon arrival and once administered post a bridge message with date of administration, substance abuse counselor, expiration date, and lot# so we can update [facility]. 10/09/19 22 Inactive shingrix step 1 Shingrix (PF) 50 mcg/0.5 mL intramuscular suspension, kit RxNorm: 7470601 Administer 1/2 Milliliter(s) Intramuscular one time Nursing please administer upon arrival and once administered post a bridge message with date of administration, substance abuse counselor, expiration date, and lot# so we can update [facility]. 10/09/19 22 022 Inactive shingrix step 1 cholecalciferol (vitamin D3) 1,250 mcg (50,000 unit) capsule RxNorm: 104494 Take 1 Capsule(s) Oral QW once a [...] aspart 100 unit/mL (3 mL) subcutaneous RxNorm: 7902720 Inject 10 Unit(s) Subcutaneous QHS every night at bedtime with nighttime snack 10/08/19 22 Inactive Shingrix (PF) 50 mcg/0.5 mL intramuscular suspension, kit RxNorm: 7190035 ADMINISTER 2-DOSE SERIES PER CDC GUIDELINES 10/08/19 22 022 Active Shingrix (PF) 50 mcg/0.5 mL intramuscular suspension, kit RxNorm: 5422307 ADMINISTER 2-DOSE SERIES PER CDC GUIDELINES 10/08/19 22 Inactive Novolog Flexpen U-100 Insulin aspart 100 unit/mL (3 mL) subcutaneous RxNorm: 9468855 Inject 36 Unit(s) Subcutaneous TID in addition to sliding scale 10/08/19 Inactive Novofine Autocover 30 gauge x 1/3 needle RxNorm: Use 1 Miscellaneous UD as directed Use 1 needle as directed to administer insulin 5 times a day Dx:E11.42. 10/03/19 Inactive ok to substitute with any covered alternative pen needle benzoyl peroxide 10 % topical cleanser RxNorm: 696564 Apply 1 Application Topical QD apply to face, wash rinse and dry once daily (may change to QOD if drying) 08/19/19 Inactive (%covered by insurance) #60ml refill 11 dx: acne benzoyl peroxide 10 % topical cleanser RxNorm: 393015 Apply 1 Application Topical QD apply to face, wash rinse and dry once daily (may change to QOD if drying) 08/19/19 022 Inactive (%covered by insurance) #60ml refill 11 dx: acne benzoyl peroxide 10 % topical cleanser RxNorm: 889438 Apply 1 Application Topical QD apply to face, wash rinse and dry once daily (may change to QOD if drying) 08/19/19 22 022 Inactive (%covered by insurance) #60ml refill 11 dx: acne Lyrica 50 mg capsule RxNorm: 278891 Take 1 Capsule(s) Oral QAM every morning Take 1 capsule by mouth once daily 08/19/19 22 Inactive benzoyl peroxide 10 % topical cleanser RxNorm: 123704 Apply 1 Application Topical QD apply to face, wash rinse and dry once daily (may change to QOD if drying) 08/19/19 22 022 Inactive (%covered by insurance) #60ml refill 11 dx: acne Lyrica 100 mg capsule RxNorm: 082459 Take 1 Capsule(s) Oral QHS every night at bedtime Take 1 capsule by mouth once daily at bedtime 08/19/19 22 Inactive Lyrica 100 mg capsule RxNorm: 263731 Take 1 Capsule(s) Oral QHS every night at bedtime Take 1 capsule by mouth once daily at bedtime 08/16/19 22 022 Inactive Lyrica 50 mg capsule RxNorm: 272137 Take 1 Capsule(s) Oral QAM every morning Take 1 capsule by mouth once daily 08/16/19 22 022 Inactive Levemir FlexTouch U-100 Insulin 100 unit/mL (3 mL) subcutaneous pen RxNorm: 116095 Inject 86 Unit(s) Subcutaneous BID 08/05/19 22 022 Inactive d/c 83units BID Lyrica 100 mg capsule RxNorm: 142391 Take 1 Capsule(s) Oral QHS every night at bedtime Take 1 capsule by mouth once daily at bedtime 07/14/19 22 022 Inactive Lyrica 50 mg capsule RxNorm: 266331 Take 1 Capsule(s) Oral QAM every morning Take 1 capsule by mouth once daily 07/14/19 22 022 Inactive Levemir FlexTouch U-100 Insulin 100 unit/mL (3 mL) subcutaneous pen RxNorm: 997011 Inject 83 Unit(s) Subcutaneous BID 07/08/19 22 [...] test strip hydralazine 50 mg tablet RxNorm: 559495 Take 1 Tablet(s) Oral QID 05/05/20 21 022 Inactive venlafaxine ER 225 mg tablet,extended release 24 hr RxNorm: 224809 Take 1 Tablet(s) Oral QD 05/05/20 21 021 Inactive venlafaxine ER 225 mg tablet,extended release 24 hr RxNorm: 219761 Take 1 Tablet(s) Oral QD 05/05/20 022 Inactive isosorbide mononitrate ER 30 mg tablet,extended release 24 hr RxNorm: 293434 Take 1 Tablet(s) Oral QD 05/05/20 21 024 Inactive hydralazine 50 mg tablet RxNorm: 378609 Take 1 Tablet(s) Oral QID 05/05/20 21 021 Inactive aspirin 81 mg tablet,delayed release RxNorm: 119204 Take 1 Tablet(s) Oral QD 03/31/20 022 Inactive Vitamin D2 1,250 mcg (50,000 unit) capsule RxNorm: 3031841 Take 1 Capsule(s) Oral QW once a week x 12 weeks 03/31/20 022 Inactive Vitamin D2 1,250 mcg (50,000 unit) capsule RxNorm: 1440449 Take 1 Capsule(s) Oral QW once a week 03/31/20 021 Inactive Zetia 10 mg tablet RxNorm: 892711 Take 1 Tablet(s) Oral QD 03/31/20 024 Inactive Zetia 10 mg tablet RxNorm: 344998 Take 1 Tablet(s) Oral QD 03/31/20 021 Inactive hydralazine 25 mg tablet RxNorm: 023929 Take 1 Tablet(s) Oral QID 03/31/20 021 Inactive hydralazine 25 mg tablet RxNorm: 108768 Take 1 Tablet(s) Oral QID 03/31/20 021 Inactive hydralazine 10 mg tablet RxNorm: 982352 Take 1 Tablet(s) Oral QID 03/03/20 021 Inactive cephalexin 500 mg tablet RxNorm: 011590 Take 1 Tablet(s) Oral QID 02/27/20 021 Inactive cephalexin 500 mg tablet RxNorm: 361791 Take 1 Tablet(s) Oral QID 02/27/20 021 Inactive lisinopril 40 mg tablet RxNorm: 228493 Take 1 Tablet(s) Oral QD 02/11/20 023 Inactive Eliquis 5 mg tablet RxNorm: 4758052 Take 1 Tablet(s) Oral BID 01/05/20 022 Inactive Eliquis 5 mg tablet RxNorm: 8137240 Take 2 Tablet(s) Oral QD 01/01/20 21 021 Inactive Lyrica 50 mg capsule RxNorm: 380516 Take 1 Capsule(s) Oral QAM every morning 12/24/19 21 021 Inactive Lyrica 100 mg capsule RxNorm: 421780 Take 1 Capsule(s) Oral QHS every night at bedtime 12/24/19 021 Inactive clotrimazole 1 % topical cream RxNorm: 281245 Apply to right foot and toes Topical BID 12/04/19 21 023 Inactive metoprolol succinate ER 200 mg tablet,extended release 24 hr RxNorm: 347234 Take 1 Tablet(s) Oral QD 12/04/19 21 023 Inactive ciprofloxacin 500 mg tablet RxNorm: 442357 Take 1 Tablet(s) Oral QD 11/30/19 21 021 Inactive DX ofloxacin otic drops Accu-Chek Guide test strips RxNorm: USE 1 TO CHECK GLUCOSE 4 TIMES DAILY AND NEEDED 11/15/19 21 023 Inactive Blood Glucose Test strips RxNorm: Use 1 Test Strip QID at PRN 11/05/19 21 023 Inactive E11.42 lisinopril 30 mg tablet RxNorm: 485585 Take 1 Tablet(s) Oral QD 10/30/19 021 Inactive lisinopril 20 mg tablet RxNorm: 825636 Take 1 Tablet(s) Oral QD 10/23/19 21 021 Inactive lisinopril 20 mg tablet RxNorm: 205804 Take 1 Tablet(s) Oral QD 10/23/19 21 021 Inactive lisinopril 10 mg tablet RxNorm: 906469 Take 1 Tablet(s) Oral QD 10/02/19 021 Inactive icosapent ethyl 1 gram capsule RxNorm: 1457468 Take 2 Capsule(s) (2 gm) Oral BID with meals 09/12/19 024 Inactive Okay to dispense one 2gm tab if you have that available. icosapent ethyl 1 gram capsule RxNorm: 9820017 Take 2 Capsule(s) Oral BID 09/12/19 21 021 Inactive Okay to dispense one 2gm tab if you have that available. amlodipine 10 mg tablet RxNorm: 061516 Take 1 Tablet(s) Oral QD 09/04/19 21 022 Inactive aspirin 81 mg tablet,delayed release RxNorm: 823209 Take 1 Tablet(s) Oral QD 09/04/19 21 021 Inactive Levemir FlexTouch U-100 Insulin 100 unit/mL (3 mL) subcutaneous pen RxNorm: 676738 Inject 150 Unit(s) Subcutaneous BID 09/04/19 21 022 Inactive venlafaxine ER 150 mg tablet,extended release 24 hr RxNorm: 860170 Take 1 Tablet(s) Oral QD 09/04/19 21 021 Inactive clotrimazole-betame thasone 1 %-0.05 % topical cream RxNorm: 673076 Apply to rash on red area on left abdomen/chest Topical BID 08/10/19 21 Inactive amlodipine 5 mg tablet RxNorm: 813766 Take 1 Tablet(s) Oral QD 07/31/19 21 Inactive cephalexin 500 mg tablet RxNorm: 736622 Take 1 Tablet(s) Oral BID BID - Twice Daily 07/31/19 Inactive Start 08/01/20 pantoprazole 40 mg tablet,delayed release RxNorm: 522313 Take 1 Tablet(s) Oral QAM every morning 07/08/19 Inactive senna 8.6 mg tablet RxNorm: 689207 Take 1 Tablet(s) Oral QD 07/08/19 Inactive carbamazepine 200 mg tablet RxNorm: 417207 Take 1 Tablet(s) Oral BID 07/08/19 Inactive clopidogrel 75 mg tablet RxNorm: 928332 Take 1 Tablet(s) Oral QD 07/08/19 021 Inactive Blood Glucose Test strips RxNorm: Use 1 Test Strip QID at PRN 07/08/19 Inactive E11.42 Novolog Flexpen U-100 Insulin aspart 100 unit/mL (3 mL) subcutaneous RxNorm: 6995945 Administer per sliding scale Milliliter(s) Subcutaneous TID 151-200: 10 u; 201-250: 20 u; 251-300: 30 u; 301-350: 40 u; 351-400: 50 u. 07/08/19 022 Inactive lisinopril 5 mg tablet RxNorm: 247240 Take 1 Tablet(s) Oral QD 07/08/19 021 Inactive Novolog Flexpen U-100 Insulin aspart 100 unit/mL (3 mL) subcutaneous RxNorm: 4004749 Inject 85 Unit(s) Subcutaneous TID 07/08/19 022 Inactive pravastatin 80 mg tablet RxNorm: 311814 Take 1 Tablet(s) Oral QHS every night at bedtime 07/08/19 023 Inactive clotrimazole 1 % topical cream RxNorm: 300475 Apply to bilateral groin areas Topical BID 07/08/19 21 022 Inactive metoprolol succinate ER 200 mg tablet,extended release 24 hr RxNorm: 717624 Take 1 Tablet(s) Oral QD 07/08/19 021 Inactive Vitamin D3 25 mcg (1,000 unit) tablet RxNorm: 596798 Take 1 Tablet(s) Oral QD 07/08/19 021 Inactive isosorbide dinitrate 30 mg tablet RxNorm: 007854 Take 1 Tablet(s) Oral QD 07/08/19 021 Inactive Levemir FlexTouch U-100 Insulin 100 unit/mL (3 mL) subcutaneous pen RxNorm: 044154 Inject 140 Unit(s) Subcutaneous BID 07/08/19 021 Inactive torsemide 20 mg tablet RxNorm: 757394 Take 1 Tablet(s) Oral QD 07/08/19 023 Inactive venlafaxine 75 mg tablet RxNorm: 014185 Take 1 Tablet(s) Oral QD 07/08/19 021 Inactive acetaminophen 500 mg tablet RxNorm: 109953 Take 1 Tablet(s) Oral TID as needed for headache 06/18/19 021 Inactive acetaminophen 500 mg tablet RxNorm: 125284 Take 1 Tablet(s) Oral TID as needed for headache 06/18/19 021 Inactive Lyrica 100 mg capsule RxNorm: 599505 Take 1 Capsule(s) Oral QHS every night at bedtime 06/11/19 021 Inactive Lyrica 50 mg capsule RxNorm: 743681 Take 1 Capsule(s) Oral QAM every morning 06/10/19 21 021 Inactive hydrocortisone 2.5 % topical cream RxNorm: 919097 Apply to bilateral groin creases Topical BID 05/15/20 20 021 Inactive clotrimazole 1 % topical cream RxNorm: 565626 Apply to bilateral groin areas Topical BID 05/15/20 20 021 Inactive Lyrica 50 mg capsule RxNorm: 340611 Take 1 Capsule(s) Oral QAM every morning 05/14/20 20 Inactive Lyrica 100 mg capsule RxNorm: 719857 Take 1 Capsule(s) Oral QHS every night [...] Inactive Nystop 100,000 unit/gram topical powder RxNorm: 084109 Apply to abd folds, under breasts and L side of groin Topical BID x 14 days, then BID PRN 04/08/20 20 Inactive dx: yeast dermatitis Lyrica 100 mg capsule RxNorm: 968297 Take 1 Capsule(s) Oral QHS every night at bedtime 03/13/20 20 Inactive Lyrica 50 mg capsule RxNorm: 487514 Take 1 Capsule(s) Oral QAM every morning 03/13/20 20 Inactive ketoconazole 2 % shampoo RxNorm: 128259 Apply Topical two times a week with showers 03/11/20 20 024 Inactive cholecalciferol (vitamin D3) 50 mcg (2,000 unit) tablet RxNorm: 054964 Take 1 Tablet(s) Oral QD 03/11/20 20 021 Inactive Zetia 10 mg tablet RxNorm: 503071 Take 1 Tablet(s) Oral QD 03/07/20 20 021 Inactive Zetia 10 mg tablet RxNorm: 363722 Take 1 Tablet(s) Oral QD 03/07/20 20 Inactive Lyrica 50 mg capsule RxNorm: 671731 Take 1 Capsule(s) Oral QAM every morning 02/15/20 20 Inactive Lyrica 100 mg capsule RxNorm: 338679 Take 1 Capsule(s) Oral QHS every night at bedtime 02/15/20 20 Inactive Lyrica 100 mg capsule RxNorm: 063944 Take 1 Capsule(s) Oral QHS every night at bedtime 02/15/20 20 Inactive Lyrica 50 mg capsule RxNorm: 587091 Take 1 Capsule(s) Oral QAM every morning 02/15/20 20 Inactive metoprolol succinate ER 200 mg tablet,extended release 24 hr RxNorm: 821635 Take 1 Tablet(s) Oral QD 08/12/19 23 Active loperamide 2 mg capsule RxNorm: 036516 Take 1 Capsule(s) Oral QID as needed 06/12/19 22 Active hydralazine 50 mg tablet RxNorm: 846694 Take 1 Tablet(s) Oral QID 08/12/19 23 Active venlafaxine ER 75 mg capsule,extended release 24 hr RxNorm: 965911 Take 3 Capsule(s) Oral QD 06/12/19 22 023 Inactive polyethylene glycol 3350 17 gram/dose oral powder RxNorm: 526947 Take 17=1 capful Gram(s) Oral BID as needed mix with 4-8oz of liquid 06/12/19 22 024 Inactive icosapent ethyl 1 gram capsule RxNorm: 3015633 Take 2 Capsule(s) (2 gm) Oral BID with meals 10/07/19 23 023 Inactive Okay to dispense one 2gm tab if you have that available. Levemir FlexTouch U-100 Insulin 100 unit/mL (3 mL) subcutaneous pen RxNorm: 561719 Inject 80 Unit(s) Subcutaneous BID 07/14/19 23 023 Inactive Novolog Flexpen U-100 Insulin aspart 100 unit/mL (3 mL) subcutaneous RxNorm: 6565746 Insert 30 Unit(s) Subcutaneous TID with meals 10/08/19 022 Inactive Medication Administered No Medication Administered data Procedures Procedure Codes Date DEBRIDE NAIL 6 OR MORE CPT-4: 52426 4 SYS BP LESS 140 CPT-4: G8752 01/11/2024 CUI BP LESS 90 CPT-4: G8754 01/11/2024 Vital Signs Date Vital 01/11/2024 Blood Pressure 1: 11 Code: 8480-6 Heart Rate 1: 62 bpm Code: 8867-4 Temperature: 36.4 (C) / 97.6 (F) Reason For Visit No Reason For Visit data Encounters Encounter Performer Location Location Address Codes Date ([address]) Home or Residence Visit Est Pt - Moderate Level, 40 mins Diagnosis: BMI 60.0-69.9, adult[ICD10: Z68.44] Diagnosis: Lower extremity edema[ICD10: R60.0] Diagnosis: Onychogryposis[I CD10: L60.2] Diagnosis: PVD (peripheral vascular disease)[ICD10: I73.9] Diagnosis: Seizure disorder[ICD10: G40.909] Diagnosis: Pressure ulcer of left calf, unstageable[ICD1 0: L89.890] Diagnosis: Low back pain[ICD10: M54.50] Diagnosis: Physical deconditioning[I CD10: R53.81] Harrison Munson [facility] [place] [facility] [place] [id number] [place] [address] [place] [address] CPT-4: 42995 01/11/2024 Plan of Care Planned Activity Notes Codes Status Date Appointment: Sandra Clark WPtel: [phone] Telehealth Psych Follow Up 12/09 Appointment: Tapan Shirley WPtel: [address] TCM 10/26/2022 Referral: [facility] WPtel: [phone], [address] [id number] Referral Records Received 09/21/2022 Appointment: Tapan Shirley WPtel: [address] [facility] [address] [id number] [place] F/U 08/11/2022 Appointment: Tapan Shirley WPtel: [address] [facility] [address] [id number] [place] F/U 07/14/2022 Appointment: Tapan Shirley WPtel: [address] [facility] [address] [id number] [place] F/U 02/10/2022 Referral: [facility] WPtel: [address] [facility] [address] [id number] [place] Referral Completed 05/28/2021 Referral: General Cardiology [...] Sister Jyotsna involved in his care cell# [phone] Guardian: Giulia (tapan met in person 09/01/21), [...] in 1 year to monitor growth (due 6.2025)Dr. Martines note from 11.08.2023 at [facility] (follow up 6 months)Colon & Rectal Surgery visit scheduled for 03/08/24 with Matilde Pérez PA-C. 01/05/2024 Pressure ulcer of left calf, unstageable Complicated by PVD, DM, obesity. 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 No open areas to BLE although wounds to left lower extremity: seven wounds in varying sizes. Six the size of a pencil eraser and one larger one in the middle 1 cm in length by .5 cm in width. All with black scab like appearance. No open areas, no drainage. Unable to stage wounds as they are covered. Current order: Daily and PRN: Keep skin on funes clean with warm water and gentle soap. Dry thoroughly. Apply bacitracin or triple antibiotic cream to the affected areas. Cover with non-adhering dressing until fully healed. Monitor for increase in redness, warmth, pain, and fever as these might be signs of infection. Would benefit from in home snf as per Leonid staff are not tending to his leg. BMI 60.0-69.9, adult Leonid didn't know his weight today. We discussed healthy diet options. Difficult as staff prepare and serve food. Encouraged him to ask for protein, veggies, fruits, water. PT referral will be placed today for low back pain, deconditioning but hopefully will also help increase his physical activity as well. PVD (peripheral vascular disease) PVD complicated by severe obesity, CAD, DM. Continue Torsemide and Potassium chloride. Does have wounds on left lower calf which will require further management as they are not improving and per Leonid staff have not been preforming any wound cares. Will place order for snf today. Leonid is high risk for impaired healing and infection due to his diabetes. Lower extremity edema Non pitting edema present. Compression stockings daily. Continue Torsemide 20 mg QD and Potassium Chloride 20 mEq BID. Does have wounds present on left lower extremity. Will be referring to snf for further support. Seizure disorder No recent seizure activity reported by staff or Peter. Continue Carbamazepine 200 mg BID. Does not follow with neurology. Staff to monitor for seizure activity and update PCP. Physical deconditioning Seen in ER for low back pain 12.27.2023. PT recommended although ER provider didn't order. PCP will order. Leonid would greatly benefit from PT to work on strength and physical activity/mobility. Currently his activity consists of using his walker to go to the bathroom and back to his recliner. Further strengthening and activity would benefit him in multiple ways: pain, balance, weight loss, diabetes. Onychogryposis 7 toenails debrided today. Tolerated well. No signs of infection or ingrown toenails today. Low back pain Was seen in the ER on 12.27.2023 for low back pain. Prescribed flexeril and tylenol. Leonid states he never received the flexeril. ER provider recommended PT but did not place order. Denies low back pain today. PCP will place PT order. PCP will not order flexeril at this time; does not appear indicated with exam today.. 01/11/2024
--- OUTSIDE RECORDS SUMMARY | 2024-02-09 19:00 | XMS_ITS | CCD ---
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 RxNorm: 197363 Inject 83 Unit(s) Subcutaneous BID 07/08/19 22 [...] test strip hydralazine 50 mg tablet RxNorm: 946633 Take 1 Tablet(s) Oral QID 05/05/20 21 Inactive venlafaxine ER 225 mg tablet,extended release 24 hr RxNorm: 617914 Take 1 Tablet(s) Oral QD 05/05/20 021 Inactive venlafaxine ER 225 mg tablet,extended release 24 hr RxNorm: 720540 Take 1 Tablet(s) Oral QD 05/05/20 022 Inactive isosorbide mononitrate ER 30 mg tablet,extended release 24 hr RxNorm: 945891 Take 1 Tablet(s) Oral QD 05/05/20 024 Inactive hydralazine 50 mg tablet RxNorm: 515752 Take 1 Tablet(s) Oral QID 05/05/20 Inactive aspirin 81 mg tablet,delayed release RxNorm: 009312 Take 1 Tablet(s) Oral QD 03/31/20 022 Inactive Vitamin D2 1,250 mcg (50,000 unit) capsule RxNorm: 6451721 Take 1 Capsule(s) Oral QW once a week x 12 weeks 03/31/20 022 Inactive Vitamin D2 1,250 mcg (50,000 unit) capsule RxNorm: 8745833 Take 1 Capsule(s) Oral QW once a week 03/31/20 Inactive Zetia 10 mg tablet RxNorm: 512784 Take 1 Tablet(s) Oral QD 03/31/20 024 Inactive Zetia 10 mg tablet RxNorm: 369177 Take 1 Tablet(s) Oral QD 03/31/20 021 Inactive hydralazine 25 mg tablet RxNorm: 782339 Take 1 Tablet(s) Oral QID 03/31/20 21 021 Inactive hydralazine 25 mg tablet RxNorm: 328116 Take 1 Tablet(s) Oral QID 03/31/20 021 Inactive hydralazine 10 mg tablet RxNorm: 539815 Take 1 Tablet(s) Oral QID 03/03/20 021 Inactive cephalexin 500 mg tablet RxNorm: 152061 Take 1 Tablet(s) Oral QID 02/27/20 021 Inactive cephalexin 500 mg tablet RxNorm: 415290 Take 1 Tablet(s) Oral QID 02/27/20 021 Inactive lisinopril 40 mg tablet RxNorm: 551095 Take 1 Tablet(s) Oral QD 02/11/20 023 Inactive Eliquis 5 mg tablet RxNorm: 3018101 Take 1 Tablet(s) Oral BID 01/05/20 022 Inactive Eliquis 5 mg tablet RxNorm: 5610527 Take 2 Tablet(s) Oral QD 01/01/20 021 Inactive Lyrica 50 mg capsule RxNorm: 849599 Take 1 Capsule(s) Oral QAM every morning 12/24/19 021 Inactive Lyrica 100 mg capsule RxNorm: 111515 Take 1 Capsule(s) Oral QHS every night at bedtime 12/24/19 021 Inactive clotrimazole 1 % topical cream RxNorm: 848659 Apply to right foot and toes Topical BID 12/04/19 21 023 Inactive metoprolol succinate ER 200 mg tablet,extended release 24 hr RxNorm: 448453 Take 1 Tablet(s) Oral QD 12/04/19 023 Inactive ciprofloxacin 500 mg tablet RxNorm: 646671 Take 1 Tablet(s) Oral QD 11/30/19 021 Inactive DX ofloxacin otic drops Accu-Chek Guide test strips RxNorm: USE 1 TO CHECK GLUCOSE 4 TIMES DAILY AND NEEDED 11/15/19 21 023 Inactive Blood Glucose Test strips RxNorm: Use 1 Test Strip QID at PRN 11/05/19 21 023 Inactive E11.42 lisinopril 30 mg tablet RxNorm: 471144 Take 1 Tablet(s) Oral QD 10/30/19 21 021 Inactive lisinopril 20 mg tablet RxNorm: 403612 Take 1 Tablet(s) Oral QD 10/23/19 21 021 Inactive lisinopril 20 mg tablet RxNorm: 822775 Take 1 Tablet(s) Oral QD 10/23/19 21 021 Inactive lisinopril 10 mg tablet RxNorm: 904843 Take 1 Tablet(s) Oral QD 10/02/19 21 021 Inactive icosapent ethyl 1 gram capsule RxNorm: 7780459 Take 2 Capsule(s) (2 gm) Oral BID with meals 09/12/19 024 Inactive Okay to dispense one 2gm tab if you have that available. icosapent ethyl 1 gram capsule RxNorm: 4572922 Take 2 Capsule(s) Oral BID 09/12/19 021 Inactive Okay to dispense one 2gm tab if you have that available. amlodipine 10 mg tablet RxNorm: 385653 Take 1 Tablet(s) Oral QD 09/04/19 21 022 Inactive aspirin 81 mg tablet,delayed release RxNorm: 861347 Take 1 Tablet(s) Oral QD 09/04/19 21 021 Inactive Levemir FlexTouch U-100 Insulin 100 unit/mL (3 mL) subcutaneous pen RxNorm: 510185 Inject 150 Unit(s) Subcutaneous BID 09/04/19 21 022 Inactive venlafaxine ER 150 mg tablet,extended release 24 hr RxNorm: 462062 Take 1 Tablet(s) Oral QD 09/04/19 21 021 Inactive clotrimazole-betame thasone 1 %-0.05 % topical cream RxNorm: 304018 Apply to rash on red area on left abdomen/chest Topical BID 08/10/19 21 021 Inactive amlodipine 5 mg tablet RxNorm: 691904 Take 1 Tablet(s) Oral QD 07/31/19 21 021 Inactive cephalexin 500 mg tablet RxNorm: 833072 Take 1 Tablet(s) Oral BID BID - Twice Daily 07/31/19 21 021 Inactive Start 08/01/20 pantoprazole 40 mg tablet,delayed release RxNorm: 203470 Take 1 Tablet(s) Oral QAM every morning 07/08/19 022 Inactive senna 8.6 mg tablet RxNorm: 977240 Take 1 Tablet(s) Oral QD 07/08/19 21 022 Inactive carbamazepine 200 mg tablet RxNorm: 129669 Take 1 Tablet(s) Oral BID 07/08/19 21 022 Inactive clopidogrel 75 mg tablet RxNorm: 143276 Take 1 Tablet(s) Oral QD 07/08/19 21 021 Inactive Blood Glucose Test strips RxNorm: Use 1 Test Strip QID at PRN 07/08/19 21 Inactive E11.42 Novolog Flexpen U-100 Insulin aspart 100 unit/mL (3 mL) subcutaneous RxNorm: 4007504 Administer per sliding scale Milliliter(s) Subcutaneous TID 151-200: 10 u; 201-250: 20 u; 251-300: 30 u; 301-350: 40 u; 351-400: 50 u. 07/08/19 21 022 Inactive lisinopril 5 mg tablet RxNorm: 936080 Take 1 Tablet(s) Oral QD 07/08/19 021 Inactive Novolog Flexpen U-100 Insulin aspart 100 unit/mL (3 mL) subcutaneous RxNorm: 3474594 Inject 85 Unit(s) Subcutaneous TID 07/08/19 022 Inactive pravastatin 80 mg tablet RxNorm: 583361 Take 1 Tablet(s) Oral QHS every night at bedtime 07/08/19 023 Inactive clotrimazole 1 % topical cream RxNorm: 353444 Apply to bilateral groin areas Topical BID 07/08/19 21 022 Inactive metoprolol succinate ER 200 mg tablet,extended release 24 hr RxNorm: 748073 Take 1 Tablet(s) Oral QD 07/08/19 21 021 Inactive Vitamin D3 25 mcg (1,000 unit) tablet RxNorm: 689997 Take 1 Tablet(s) Oral QD 07/08/19 021 Inactive isosorbide dinitrate 30 mg tablet RxNorm: 629871 Take 1 Tablet(s) Oral QD 07/08/19 Inactive Levemir FlexTouch U-100 Insulin 100 unit/mL (3 mL) subcutaneous pen RxNorm: 747154 Inject 140 Unit(s) Subcutaneous BID 07/08/19 021 Inactive torsemide 20 mg tablet RxNorm: 453331 Take 1 Tablet(s) Oral QD 07/08/19 023 Inactive venlafaxine 75 mg tablet RxNorm: 666455 Take 1 Tablet(s) Oral QD 07/08/19 Inactive acetaminophen 500 mg tablet RxNorm: 627335 Take 1 Tablet(s) Oral TID as needed for headache 06/18/19 Inactive acetaminophen 500 mg tablet RxNorm: 716838 Take 1 Tablet(s) Oral TID as needed for headache 06/18/19 021 Inactive Lyrica 100 mg capsule RxNorm: 985326 Take 1 Capsule(s) Oral QHS every night at bedtime 06/11/19 021 Inactive Lyrica 50 mg capsule RxNorm: 969327 Take 1 Capsule(s) Oral QAM every morning 06/10/19 21 021 Inactive hydrocortisone 2.5 % topical cream RxNorm: 460056 Apply to bilateral groin creases Topical BID 05/15/20 20 021 Inactive clotrimazole 1 % topical cream RxNorm: 119805 Apply to bilateral groin areas Topical BID 05/15/20 20 021 Inactive Lyrica 50 mg capsule RxNorm: 990387 Take 1 Capsule(s) Oral QAM every morning 05/14/20 20 Inactive Lyrica 100 mg capsule RxNorm: 226138 Take 1 Capsule(s) Oral QHS every night [...] Inactive Nystop 100,000 unit/gram topical powder RxNorm: 192527 Apply to abd folds, under breasts and L side of groin Topical BID x 14 days, then BID PRN 04/08/20 20 Inactive dx: yeast dermatitis Lyrica 100 mg capsule RxNorm: 367729 Take 1 Capsule(s) Oral QHS every night at bedtime 03/13/20 20 Inactive Lyrica 50 mg capsule RxNorm: 930149 Take 1 Capsule(s) Oral QAM every morning 03/13/20 20 Inactive ketoconazole 2 % shampoo RxNorm: 118138 Apply Topical two times a week with showers 03/11/20 20 024 Inactive cholecalciferol (vitamin D3) 50 mcg (2,000 unit) tablet RxNorm: 681534 Take 1 Tablet(s) Oral QD 03/11/20 20 021 Inactive Zetia 10 mg tablet RxNorm: 495400 Take 1 Tablet(s) Oral QD 03/07/20 20 021 Inactive Zetia 10 mg tablet RxNorm: 875030 Take 1 Tablet(s) Oral QD 03/07/20 20 020 Inactive Lyrica 50 mg capsule RxNorm: 982485 Take 1 Capsule(s) Oral QAM every morning 02/15/20 20 Inactive Lyrica 100 mg capsule RxNorm: 442544 Take 1 Capsule(s) Oral QHS every night at bedtime 02/15/20 20 Inactive Lyrica 100 mg capsule RxNorm: 614580 Take 1 Capsule(s) Oral QHS every night at bedtime 02/15/20 Inactive Lyrica 50 mg capsule RxNorm: 362908 Take 1 Capsule(s) Oral QAM every morning 02/15/20 20 Inactive metoprolol succinate ER 200 mg tablet,extended release 24 hr RxNorm: 308847 Take 1 Tablet(s) Oral QD 08/12/19 23 Active loperamide 2 mg capsule RxNorm: 961639 Take 1 Capsule(s) Oral QID as needed 06/12/19 22 Active hydralazine 50 mg tablet RxNorm: 479037 Take 1 Tablet(s) Oral QID 08/12/19 23 Active venlafaxine ER 75 mg capsule,extended release 24 hr RxNorm: 567788 Take 3 Capsule(s) Oral QD 06/12/19 22 023 Inactive polyethylene glycol 3350 17 gram/dose oral powder RxNorm: 514692 Take 17=1 capful Gram(s) Oral BID as needed mix with 4-8oz of liquid 06/12/19 22 024 Inactive icosapent ethyl 1 gram capsule RxNorm: 7627929 Take 2 Capsule(s) (2 gm) Oral BID with meals 10/07/19 23 023 Inactive Okay to dispense one 2gm tab if you have that available. Levemir FlexTouch U-100 Insulin 100 unit/mL (3 mL) subcutaneous pen RxNorm: 500020 Inject 80 Unit(s) Subcutaneous BID 07/14/19 23 023 Inactive Novolog Flexpen U-100 Insulin aspart 100 unit/mL (3 mL) subcutaneous RxNorm: 5597378 Insert 30 Unit(s) Subcutaneous TID with meals [...] Referral: [facility] WPtel: [phone] [id number] [place] Referral Records Received 09/21/2022 Referral: [facility] WPtel: [id number] [id number] [place] Referral Completed 05/28/2021 Referral: General Cardiology Referral Complet ed 01/03/2021 Referral: General Psychologist Referral Close d Referral: General Psychiatrist Referral Patient/Family Scheduling Appointment Referral: General Outpatient Therapy Referral Initiated Instructions Comment Date Leonid is a Male being seen living at [facility]. Initial BPS visit 01/2020. PMHx including DMII, CAD w/ 5 stents, Depression, Seizure Disorder and CKD stage 3. He moved into [facility] in 12/2019 but after a hospitalization 05/2021 he moved to [facility] to have closer nursing attention. Sister Jyotsna involved in his care cell# [phone] Guardian: Giulia (tapan met in person 09/01/21), now has Lexii (same group as giulia)AWV 02.08.2024. Lab Schedule: /September*September (CBC with diff, CMP, A1c) [...] note from 11.08.2023 at [facility] (follow up 6 months)Colon & Rectal Surgery visit scheduled for 03/08/24 with Matilde Pérez PA-C. 02/08/2024
--- OUTSIDE RECORDS SUMMARY | 2024-02-19 14:16 | XMS_ITS | CCD ---
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 Phone [place] [facility] Primary Care Provider Leona vailable [facility], [facility] Chronic Care Management U navailable Summary Purpose DataExchange Insurance Providers Payer name Policy type / Coverage type Covered republican ID Effective Begin Date Effective End Date Medicare [place] Medicare Part B [id number] Unknown Unknown [place] Medicare Part B [id number] Unknown Unknown Family history Sister Brittany Suggs [...] Detention 09/03/[address]: 7743226 Non-Smoker / No History of Smoking 09/02/[address]: 597032921 No Alcohol Consum ption 09/02/2020 Allergies, Adverse Reactions, Alerts Substance Reaction Codes Entered Date Inactivated Date Status * NO KNOWN FOOD ALLERGIES Unknown 07/13/2023 No Inactive Date Active LISINOPRIL RxNorm: 07220 02/12/2020 No Inactive Da te Active Metformin [...] 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: Z79.899 ICD-9: [...] 09/07/2023 Resolved 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, angina presence unspecified ICD-10: I25.10 ICD-9: [...] immunization ICD-10: Z23 ICD-9: V03.89 02/10/2022 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 [...] 60 mg tablet,extended release 24 hr RxNorm: 796623 Take 1 Tablet(s) Oral QD 02/01/20 24 025 Active aripiprazole 15 mg tablet RxNorm: 585276 Take 1/2 Tablet(s) Oral QD 02/01/20 24 025 Active torsemide 20 mg tablet RxNorm: 679303 1 TAB ORALLY DAILY (DX: EDEMA) 01/27/20 24 No Stop Date Active potassium chloride ER 20 mEq tablet,extended release(part/cryst) RxNorm: 1493362 2 TABS (40MEQ) ORALLY TWICE DAILY (DX: HYPOKALEMIA) 01/27/20 24 No Stop Date Active cephalexin 500 mg capsule RxNorm: 285176 Take 1 Capsule(s) Oral QID 12/17/19 24 024 Inactive cephalexin 500 mg capsule RxNorm: 585850 Take 1 Capsule(s) Oral QID 12/17/19 24 024 Inactive acetaminophen 500 mg tablet RxNorm: 979689 (MAX APAP:4GM/24HR) Take 1 Tablet(s) Oral TID as needed for pain 12/10/19 24 024 Active torsemide 20 mg tablet RxNorm: 336667 Take 1 Tablet(s) Oral QD 10/26/19 24 024 Inactive potassium chloride ER 20 mEq tablet,extended release RxNorm: 271247 Take 2 Tablet(s) Oral BID 10/26/19 24 025 Active torsemide 20 mg tablet RxNorm: 048570 Take 1 Tablet(s) Oral QD 10/26/19 24 024 Inactive potassium chloride ER 20 mEq tablet,extended release RxNorm: 699400 Take 2 Tablet(s) Oral BID 10/26/19 24 024 Inactive Artificial Tears (PF) 0.1 %-0.3 % drops in a dropperette RxNorm: 429852 Apply 1-2 Drop(s) Both eyes BID as needed 09/28/19 24 025 Active erythromycin 5 mg/gram (0.5 %) eye ointment RxNorm: 091940 Apply 1 Application Both eyes QHS every night at bedtime Instill ~1 cm ribbon into affected eye 09/28/19 24 Inactive Artificial Tears (PF) 0.1 %-0.3 % drops in a dropperette RxNorm: 120378 Apply 1-2 Drop(s) Both eyes BID as needed 09/28/19 24 Inactive erythromycin 5 mg/gram (0.5 %) eye ointment RxNorm: 295107 Apply 1 Application Both eyes QHS every night at bedtime Instill ~1 cm ribbon into affected eye 09/28/19 24 024 Inactive acetaminophen 500 mg tablet RxNorm: 715749 (MAX APAP:4GM/24HR) Take 1 Tablet(s) Oral TID as needed for pain 09/24/19 24 Inactive carvedilol 25 mg tablet RxNorm: 829120 Take 1 Tablet(s) Oral QD 09/08/19 24 No Stop Date Active pregabalin 100 mg capsule RxNorm: 715883 Take 1 Capsule(s) Oral QAM every morning 09/07/19 24 024 Inactive rosuvastatin 40 mg tablet RxNorm: 124376 Take 1 Tablet(s) Oral QPM every evening 07/13/19 24 No Stop Date Active ezetimibe 10 mg tablet RxNorm: 420983 Take 1 Tablet(s) Oral QD 07/13/19 24 No Stop Date Active bisacodyl 10 mg rectal suppository RxNorm: 023815 Insert 1 Suppository Rectal QD as needed 07/13/19 24 No Stop Date Active polyethylene glycol 3350 17 gram/dose oral powder RxNorm: 510610 Take 17 Gram(s) Oral BID as needed mix in 4-8ox water 07/13/19 24 No Stop Date Active ketoconazole 2 % shampoo RxNorm: 108408 Apply 1 Application Topical UD as directed 07/13/19 24 No Stop Date Active aripiprazole 15 mg tablet RxNorm: 469445 Take 1/2 Tablet(s) Oral QD 07/13/19 24 024 Inactive Ozempic 1 mg/dose (4 mg/3 mL) subcutaneous pen injector RxNorm: 6563064 Inject 1 Milligram(s) Subcutaneous QW once a week 07/13/19 24 No Stop Date Active Guaifenesin AC 10 mg-100 mg/5 mL oral liquid RxNorm: 299242 Take 10 Milliliter(s) Oral Q4H every four hours as needed 07/13/19 24 No Stop Date Active isosorbide mononitrate ER 60 mg tablet,extended release 24 hr RxNorm: 531559 Take 1 Tablet(s) Oral QD 07/13/19 24 024 Inactive ammonium lactate 12 % topical cream RxNorm: 655326 Apply 1 Application Topical BID 07/13/19 24 No Stop Date Active hydrocortisone 2.5 % topical cream RxNorm: 417013 Apply 1 Application Topical BID as needed 07/13/19 24 No Stop Date Active rosuvastatin 20 mg sprinkle capsule RxNorm: 3088962 Take 1 Capsule(s) Oral QD 07/13/19 24 No Stop Date Active Vascepa 1 gram capsule RxNorm: 1166523 Take 2 Capsule(s) Oral BID 07/13/19 24 No Stop Date Active venlafaxine ER 75 mg capsule,extended release 24 hr RxNorm: 383416 Take 3 Capsule(s) Oral QD 07/13/19 24 No Stop Date Active Basaglar KwikPen U-100 Insulin 100 unit/mL (3 mL) subcutaneous RxNorm: 0451125 Inject 30U SubQ twice daily 07/07/19 24 024 Inactive Please dispense one month supply. Basaglar KwikPen U-100 Insulin 100 unit/mL (3 mL) subcutaneous RxNorm: 1946447 Inject 30U SubQ twice daily 07/07/19 24 024 Inactive Please dispense one month supply. pregabalin 150 mg capsule RxNorm: 910837 Take 1 Capsule(s) Oral QHS every night at bedtime 07/05/19 024 Inactive pregabalin 150 mg capsule RxNorm: 154565 Take 1 Capsule(s) Oral QHS every night at bedtime 07/05/19 024 Inactive polyethylene glycol 3350 17 gram/dose oral powder RxNorm: 151215 Take 1 Packet Oral QD as needed (1 packet = 17g) mix with 4-8oz of liquid 06/15/19 024 Inactive bisacodyl 10 mg rectal suppository RxNorm: 070062 Insert one suppository per rectum once daily as needed for constipation 06/15/19 024 Inactive bisacodyl 10 mg rectal suppository RxNorm: 626011 Insert one suppository per rectum once daily as needed for constipation 06/15/19 024 Inactive pregabalin 100 mg capsule RxNorm: 650259 Take 1 Capsule(s) Oral QAM every morning 04/27/20 024 Inactive Levemir FlexPen 100 unit/mL (3 mL) solution subcutaneous insulin pen RxNorm: 917388 Inject 30 Unit(s) Subcutaneous BID 04/27/20 024 Inactive rosuvastatin 40 mg tablet RxNorm: 094395 Take 1 Tablet(s) Oral QPM every evening 04/16/20 024 Inactive D/C rosuvastatin 20mg venlafaxine ER 75 mg capsule,extended release 24 hr RxNorm: 647237 Take 3 Capsule(s) Oral QD 04/14/20 23 023 Inactive pregabalin 100 mg capsule RxNorm: 052030 Take 1 Capsule(s) Oral QAM every morning [...] meter clotrimazole 1 % topical cream RxNorm: 590951 Take apply topically to abdominal folds twice daily for 14 days 03/12/20 024 Inactive Ozempic 1 mg/dose (4 mg/3 mL) subcutaneous pen injector RxNorm: 2369195 Inject 1 Milligram(s) Subcutaneous QW once a week 03/11/20 023 Inactive rosuvastatin 20 mg tablet RxNorm: 828035 Take 1 Tablet(s) Oral QD 02/26/20 023 Inactive d/c pravastatin 80mg Ozempic 1 mg/dose (4 mg/3 mL) subcutaneous pen injector RxNorm: 8267192 Inject 1 Milligram(s) Subcutaneous QW once a week 02/20/20 023 Inactive pregabalin 150 mg capsule RxNorm: 741242 Take 1 Capsule(s) Oral HS at bed time 02/19/20 023 Inactive pregabalin 100 mg capsule RxNorm: 710097 Take 1 Capsule(s) Oral QAM every morning 02/18/20 023 Inactive venlafaxine ER 75 mg capsule,extended release 24 hr RxNorm: 240996 Take 3 Capsule(s) Oral QD 02/04/20 023 Inactive FreeStyle Chema 2 Sensor kit RxNorm: use as directed 02/04/20 23 023 Inactive FreeStyle Chema 2 Sensor kit RxNorm: use as directed 02/04/20 23 024 Inactive fluconazole 150 mg tablet RxNorm: 881294 Take 1 Tablet(s) Oral on day 3 and on day 6 02/03/20 23 024 Inactive chlorthalidone 25 mg tablet RxNorm: 050618 Take 1 Tablet(s) Oral QAM every morning 02/03/20 23 No Stop Date Active venlafaxine ER 150 mg capsule,extended release 24 hr RxNorm: 528118 Take 1 Capsule(s) Oral QD 02/03/20 23 023 Inactive acetaminophen 500 mg tablet RxNorm: 359693 1 TABLET ORALLY 3 TIMES DAILY (MAX APAP:4GM/24HR) 12/15/19 23 023 Inactive clotrimazole 1 % topical cream RxNorm: 433365 apply 1g topically to top of feet and in between toes BID 12/09/19 023 Inactive potassium chloride ER 20 mEq tablet,extended release RxNorm: 397437 Take 1 Tablet(s) Oral BID 12/09/19 024 Inactive d/c 20mEq once daily (sent from hospital) nystatin 100,000 unit/gram topical powder RxNorm: 962669 APPLY TO AFFECTED AREAS TOPICALLY 2 TIMES DAILY 11/21/19 024 Inactive Nystop 100,000 unit/gram topical powder RxNorm: 349243 Apply to abd folds, under breasts and L side of groin Topical BID x 14 days, then BID PRN 11/20/19 023 Inactive dx: yeast dermatitis [place] Ultra Strength 4 %-30 %-10 % topical cream RxNorm: 999075 Apply 1 Gram(s) Topical QID PRN to feet and legs for neuropathic pain 11/11/19 024 Inactive clotrimazole 1 % topical cream RxNorm: 616109 Apply 1/2 Gram(s) Topical BID Apply to affected areas of groin, periarea, and abdominal topically 2 times daily 11/10/19 023 Inactive hydrocortisone 2.5 % topical cream RxNorm: 088771 Apply 1/2 Gram(s) Topical BID as needed 11/10/19 024 Inactive Humulin R U-500 (Concentrated) Insulin 500 unit/mL subcutaneous soln RxNorm: 593571 Inject 100 Unit(s) Subcutaneous TID 10/07/19 024 Inactive Levemir FlexPen 100 unit/mL (3 mL) solution subcutaneous insulin pen RxNorm: 310917 Inject 30 Unit(s) Subcutaneous BID 10/07/19 023 Inactive Ozempic 0.25 mg or 0.5 mg (2 mg/3 mL) subcutaneous pen injector RxNorm: 5735232 Inject 1/2 Milligram(s) Subcutaneous QW once a week 10/07/19 024 Inactive aripiprazole 15 mg tablet RxNorm: 897572 1/2 TAB (7.5MG) ORALLY DAILY (DX:MAJOR DEPRESSIVE DISORDER) 09/23/19 23 023 Inactive Lancets,Thin 28 gauge RxNorm: Use 1 as directed QID 09/15/19 23 024 Inactive Accu-Chek Guide test strips RxNorm: Use 1 Test Strip QID 09/15/19 23 023 Inactive ok to substitute with any covered alternative test strip torsemide 20 mg tablet RxNorm: 689902 Take 1 Tablet(s) Oral BID 09/09/19 23 024 Inactive d/c once daily dosing carvedilol 25 mg tablet RxNorm: 185777 Take 1 Tablet(s) Oral QD 08/25/19 23 024 Inactive pregabalin 150 mg capsule RxNorm: 637535 1 Capsule(s) Oral HS at bed time 08/18/19 23 023 Inactive pregabalin 100 mg capsule RxNorm: 511186 1 Capsule(s) Oral QAM every morning 08/18/19 23 023 Inactive carvedilol 25 mg tablet RxNorm: 699987 1 Tablet(s) Oral QD 07/28/19 23 023 Inactive lisinopril 20 mg tablet RxNorm: 670630 Give 1 Tablet(s) Oral QD 07/28/19 23 023 Inactive Lyrica 150 mg capsule RxNorm: 083611 Take 1 Capsule(s) Oral QHS every night at bedtime 07/19/19 023 Inactive d/c 100mg dose Diflucan 150 mg tablet RxNorm: 745881 Take 1 Tablet(s) Oral QD repeat on day 3 and 6 07/19/19 23 023 Inactive pregabalin 100 mg capsule RxNorm: 511763 Take 1 Capsule(s) Oral QAM every morning 07/19/19 23 023 Inactive gatifloxacin 0.5 % eye drops RxNorm: 635599 Instill 1 Drop(s) as directed TID Instill 1 drop in to affected eye(s) starting 1 day prior to surgery and continue until gone (do not exceed 4 weeks). 07/13/19 23 023 Inactive carvedilol 25 mg tablet RxNorm: 962450 2 Tablet(s) Oral BID 07/13/19 23 023 Inactive Humulin R Regular U-100 Insulin 100 unit/mL injection solution RxNorm: 311517 85 Unit(s) Injection TID 07/13/19 23 023 Inactive ketorolac 0.5 % eye drops RxNorm: 252044 Instill 1 Drop(s) as directed QID Instill 1 drop into affected eye(s) 4 times daily starting 1 day prior to surgery and continue until gone (do not exceed 4 weeks). 07/13/19 23 023 Inactive Diflucan 150 mg tablet RxNorm: 888229 Take 1 Tablet(s) Oral QD repeat on day 3 and 6 06/30/19 023 Inactive Accu-Chek Guide test strips RxNorm: Use 1 Test Strip QID Use 1 test strip to monitor blood glucose 4 times daily and as needed. Dx:E11.42. 06/23/19 23 023 Inactive ok to substitute with any covered alternative test strip dextromethorphan-gu aifenesin 10 mg-100 mg/5 mL oral liquid RxNorm: 587411 Take 10 Milliliter(s) Oral every 4 hours as needed for cough 06/19/19 023 Inactive dextromethorphan-gu aifenesin 10 mg-100 mg/5 mL oral liquid RxNorm: 629718 Take 10 Milliliter(s) Oral every 4 hours as needed for cough 06/19/19 23 023 Inactive Lyrica 150 mg capsule RxNorm: 760877 Take 1 Capsule(s) Oral QHS every night at bedtime 06/18/19 23 023 Inactive d/c 100mg dose aripiprazole 15 mg tablet RxNorm: 535262 1/2 TAB (7.5MG) ORALLY DAILY (DX:MAJOR DEPRESSIVE DISORDER) 06/05/19 23 023 Inactive pregabalin 100 mg capsule RxNorm: 079523 1 Capsule(s) Oral QAM every morning 06/02/19 23 023 Inactive Banophen 50 mg capsule RxNorm: 1589938 Take 1 Capsule(s) Oral Q6H every 6 hours as needed 05/19/19 No Stop Date Active Novolog Flexpen U-100 Insulin aspart 100 unit/mL (3 mL) subcutaneous RxNorm: 7480100 Inject 10 Unit(s) Subcutaneous QHS every night at bedtime with nighttime snack 04/08/20 Inactive Novolog Flexpen U-100 Insulin aspart 100 unit/mL (3 mL) subcutaneous RxNorm: 3745387 Inject 42 Unit(s) Subcutaneous TID in addition to sliding scale 04/08/20 Inactive d/c 36u albuterol sulfate HFA 90 mcg/actuation aerosol inhaler RxNorm: 4098001 Take 2 Puff(s) Inhalation Q4H every four hours as needed as needed for SOB, cough, or wheezing 04/07/20 030 Active Banophen 50 mg capsule RxNorm: 3267473 Take 1 Capsule(s) Oral Q6H every 6 hours as needed 04/06/20 023 Inactive diphenhydramine 50 mg tablet RxNorm: 3588011 Take 1 Tablet(s) Oral Q6H every 6 hours as needed 04/06/20 022 Inactive diphenhydramine 50 mg tablet RxNorm: 2026727 1 Tablet(s) Oral Q6H every 6 hours as needed 04/06/20 022 Inactive Abilify 15 mg tablet RxNorm: 957446 1/2 Tablet(s) Oral QD 03/10/20 023 Inactive Shingrix (PF) 50 mcg/0.5 mL intramuscular suspension, kit RxNorm: 9199500 Administer 1/2 Milliliter(s) Intramuscular QD one time shingrix step 2 ( step 1 given 11/04/21) WITH needle - Nursing please administer upon arrival and once administered post a bridge message with date of administration, cigarette catcher, expiration date, and lot# so we can update [facility] 02/18/20 22 022 Inactive dispense with needle Shingrix (PF) 50 mcg/0.5 mL intramuscular suspension, kit RxNorm: 4731501 Administer 1/2 Milliliter(s) Intramuscular QD one time shingrix step 2 ( step 1 given 11/04/21) WITH needle - Nursing please administer upon arrival and once administered post a bridge message with date of administration, cigarette catcher, expiration date, and lot# so we can update [facility] 02/18/20 22 Inactive dispense with needle polyethylene glycol 3350 17 gram/dose oral powder RxNorm: 484828 Take 17=1 capful Gram(s) Oral QD mix with 4-8oz of liquid 01/08/20 22 023 Inactive take this in addition to BID prn order Lyrica 100 mg capsule RxNorm: 037806 Take 1 Capsule(s) Oral QAM every morning 01/08/20 22 022 Inactive d/c 50mg dose acetaminophen 500 mg tablet RxNorm: 499046 Take 1 Tablet(s) Oral TID 01/08/20 22 022 Inactive d/c PRN order Lyrica 150 mg capsule RxNorm: 207813 Take 1 Capsule(s) Oral QHS every night at bedtime 01/08/20 22 023 Inactive d/c 100mg dose Abilify 5 mg tablet RxNorm: 581284 Take 1 Tablet(s) Oral QD take 1 tab po QD #30 refill 5 dx: MDD 12/12/19 22 022 Inactive Abilify 5 mg tablet RxNorm: 440824 Take 1 Tablet(s) Oral QD take 1 tab po QD #30 refill 5 dx: MDD 12/12/19 22 022 Inactive Novolog Flexpen U-100 Insulin aspart 100 unit/mL (3 mL) subcutaneous RxNorm: 3573201 Inject 42 Unit(s) Subcutaneous TID in addition to sliding scale 12/10/19 22 022 Inactive d/c 36u chlorthalidone 25 mg tablet RxNorm: 935709 Take 1 Tablet(s) Oral QAM every morning 12/10/19 22 023 Inactive pregabalin 50 mg capsule RxNorm: 375871 Take 1 Capsule(s) Oral QAM every morning 11/12/19 22 022 Inactive tetanus-diphtheria toxoids-Td 2 Lf unit-2 Lf unit/0.5 mL IM suspension RxNorm: 139 Take 0.5 Miscellaneous Intramuscular 11/12/19 022 Inactive need tdap - nursing to administer upon arrival pregabalin 50 mg capsule RxNorm: 889868 Take 1 Capsule(s) Oral QAM every morning 10/16/19 22 022 Inactive pregabalin 50 mg capsule RxNorm: 235656 Take 1 Capsule(s) Oral QAM every morning 10/16/19 22 022 Inactive pregabalin 50 mg capsule RxNorm: 486282 1 Capsule(s) Oral QAM every morning 10/15/19 22 022 Inactive Shingrix (PF) 50 mcg/0.5 mL intramuscular suspension, kit RxNorm: 3697886 Administer 1/2 Milliliter(s) Intramuscular one time Nursing please administer upon arrival and once administered post a bridge message with date of administration, cigarette catcher, expiration date, and lot# so we can update [facility]. 10/09/19 22 022 Inactive shingrix step 1 Shingrix (PF) 50 mcg/0.5 mL intramuscular suspension, kit RxNorm: 6105058 Administer 1/2 Milliliter(s) Intramuscular one time Nursing please administer upon arrival and once administered post a bridge message with date of administration, cigarette catcher, expiration date, and lot# so we can update [facility]. 10/09/19 22 022 Inactive shingrix step 1 cholecalciferol (vitamin D3) 1,250 mcg (50,000 unit) capsule RxNorm: 546227 Take 1 Capsule(s) Oral QW once a [...] aspart 100 unit/mL (3 mL) subcutaneous RxNorm: 3767987 Inject 10 Unit(s) Subcutaneous QHS every night at bedtime with nighttime snack 10/08/19 22 Inactive Shingrix (PF) 50 mcg/0.5 mL intramuscular suspension, kit RxNorm: 0962924 ADMINISTER 2-DOSE SERIES PER CDC GUIDELINES 10/08/19 22 Active Shingrix (PF) 50 mcg/0.5 mL intramuscular suspension, kit RxNorm: 8973861 ADMINISTER 2-DOSE SERIES PER CDC GUIDELINES 10/08/19 22 Inactive Novolog Flexpen U-100 Insulin aspart 100 unit/mL (3 mL) subcutaneous RxNorm: 1303532 Inject 36 Unit(s) Subcutaneous TID in addition to sliding scale 10/08/19 Inactive Novofine Autocover 30 gauge x 1/3 needle RxNorm: Use 1 Miscellaneous UD as directed Use 1 needle as directed to administer insulin 5 times a day Dx:E11.42. 10/03/19 Inactive ok to substitute with any covered alternative pen needle benzoyl peroxide 10 % topical cleanser RxNorm: 895643 Apply 1 Application Topical QD apply to face, wash rinse and dry once daily (may change to QOD if drying) 08/19/19 022 Inactive (%covered by insurance) #60ml refill 11 dx: acne benzoyl peroxide 10 % topical cleanser RxNorm: 610272 Apply 1 Application Topical QD apply to face, wash rinse and dry once daily (may change to QOD if drying) 08/19/19 22 022 Inactive (%covered by insurance) #60ml refill 11 dx: acne benzoyl peroxide 10 % topical cleanser RxNorm: 414774 Apply 1 Application Topical QD apply to face, wash rinse and dry once daily (may change to QOD if drying) 08/19/19 22 022 Inactive (%covered by insurance) #60ml refill 11 dx: acne Lyrica 50 mg capsule RxNorm: 542380 Take 1 Capsule(s) Oral QAM every morning Take 1 capsule by mouth once daily 08/19/19 22 022 Inactive benzoyl peroxide 10 % topical cleanser RxNorm: 416288 Apply 1 Application Topical QD apply to face, wash rinse and dry once daily (may change to QOD if drying) 08/19/19 22 Inactive (%covered by insurance) #60ml refill 11 dx: acne Lyrica 100 mg capsule RxNorm: 883630 Take 1 Capsule(s) Oral QHS every night at bedtime Take 1 capsule by mouth once daily at bedtime 08/19/19 22 022 Inactive Lyrica 100 mg capsule RxNorm: 237268 Take 1 Capsule(s) Oral QHS every night at bedtime Take 1 capsule by mouth once daily at bedtime 08/16/19 22 022 Inactive Lyrica 50 mg capsule RxNorm: 688428 Take 1 Capsule(s) Oral QAM every morning Take 1 capsule by mouth once daily 08/16/19 22 022 Inactive Levemir FlexTouch U-100 Insulin 100 unit/mL (3 mL) subcutaneous pen RxNorm: 246586 Inject 86 Unit(s) Subcutaneous BID 08/05/19 22 022 Inactive d/c 83units BID Lyrica 100 mg capsule RxNorm: 796866 Take 1 Capsule(s) Oral QHS every night at bedtime Take 1 capsule by mouth once daily at bedtime 07/14/19 22 022 Inactive Lyrica 50 mg capsule RxNorm: 516543 Take 1 Capsule(s) Oral QAM every morning Take 1 capsule by mouth once daily 07/14/19 22 022 Inactive Levemir FlexTouch U-100 Insulin 100 unit/mL (3 mL) subcutaneous pen RxNorm: 147613 Inject 83 Unit(s) Subcutaneous BID 07/08/19 22 [...] test strip hydralazine 50 mg tablet RxNorm: 282509 Take 1 Tablet(s) Oral QID 05/05/20 21 022 Inactive venlafaxine ER 225 mg tablet,extended release 24 hr RxNorm: 035386 Take 1 Tablet(s) Oral QD 05/05/20 21 021 Inactive venlafaxine ER 225 mg tablet,extended release 24 hr RxNorm: 117321 Take 1 Tablet(s) Oral QD 05/05/20 21 022 Inactive isosorbide mononitrate ER 30 mg tablet,extended release 24 hr RxNorm: 832250 Take 1 Tablet(s) Oral QD 05/05/20 21 024 Inactive hydralazine 50 mg tablet RxNorm: 320443 Take 1 Tablet(s) Oral QID 05/05/20 21 021 Inactive aspirin 81 mg tablet,delayed release RxNorm: 596357 Take 1 Tablet(s) Oral QD 03/31/20 21 022 Inactive Vitamin D2 1,250 mcg (50,000 unit) capsule RxNorm: 5716137 Take 1 Capsule(s) Oral QW once a week x 12 weeks 03/31/20 022 Inactive Vitamin D2 1,250 mcg (50,000 unit) capsule RxNorm: 8430245 Take 1 Capsule(s) Oral QW once a week 03/31/20 021 Inactive Zetia 10 mg tablet RxNorm: 492746 Take 1 Tablet(s) Oral QD 03/31/20 024 Inactive Zetia 10 mg tablet RxNorm: 701759 Take 1 Tablet(s) Oral QD 03/31/20 Inactive hydralazine 25 mg tablet RxNorm: 566719 Take 1 Tablet(s) Oral QID 03/31/20 021 Inactive hydralazine 25 mg tablet RxNorm: 627507 Take 1 Tablet(s) Oral QID 03/31/20 021 Inactive hydralazine 10 mg tablet RxNorm: 888210 Take 1 Tablet(s) Oral QID 03/03/20 021 Inactive cephalexin 500 mg tablet RxNorm: 861664 Take 1 Tablet(s) Oral QID 02/27/20 021 Inactive cephalexin 500 mg tablet RxNorm: 711155 Take 1 Tablet(s) Oral QID 02/27/20 021 Inactive lisinopril 40 mg tablet RxNorm: 454889 Take 1 Tablet(s) Oral QD 02/11/20 023 Inactive Eliquis 5 mg tablet RxNorm: 8231742 Take 1 Tablet(s) Oral BID 01/05/20 022 Inactive Eliquis 5 mg tablet RxNorm: 4626947 Take 2 Tablet(s) Oral QD 01/01/20 021 Inactive Lyrica 50 mg capsule RxNorm: 111390 Take 1 Capsule(s) Oral QAM every morning 12/24/19 21 021 Inactive Lyrica 100 mg capsule RxNorm: 954973 Take 1 Capsule(s) Oral QHS every night at bedtime 12/24/19 21 021 Inactive clotrimazole 1 % topical cream RxNorm: 128693 Apply to right foot and toes Topical BID 12/04/19 21 023 Inactive metoprolol succinate ER 200 mg tablet,extended release 24 hr RxNorm: 801704 Take 1 Tablet(s) Oral QD 12/04/19 21 023 Inactive ciprofloxacin 500 mg tablet RxNorm: 433457 Take 1 Tablet(s) Oral QD 11/30/19 21 021 Inactive DX ofloxacin otic drops Accu-Chek Guide test strips RxNorm: USE 1 TO CHECK GLUCOSE 4 TIMES DAILY AND NEEDED 11/15/19 023 Inactive Blood Glucose Test strips RxNorm: Use 1 Test Strip QID at PRN 11/05/19 21 023 Inactive E11.42 lisinopril 30 mg tablet RxNorm: 336947 Take 1 Tablet(s) Oral QD 10/30/19 021 Inactive lisinopril 20 mg tablet RxNorm: 488112 Take 1 Tablet(s) Oral QD 10/23/19 021 Inactive lisinopril 20 mg tablet RxNorm: 081626 Take 1 Tablet(s) Oral QD 10/23/19 21 021 Inactive lisinopril 10 mg tablet RxNorm: 055106 Take 1 Tablet(s) Oral QD 10/02/19 21 021 Inactive icosapent ethyl 1 gram capsule RxNorm: 7633662 Take 2 Capsule(s) (2 gm) Oral BID with meals 09/12/19 21 024 Inactive Okay to dispense one 2gm tab if you have that available. icosapent ethyl 1 gram capsule RxNorm: 9286503 Take 2 Capsule(s) Oral BID 09/12/19 21 021 Inactive Okay to dispense one 2gm tab if you have that available. amlodipine 10 mg tablet RxNorm: 030827 Take 1 Tablet(s) Oral QD 09/04/19 21 022 Inactive aspirin 81 mg tablet,delayed release RxNorm: 311457 Take 1 Tablet(s) Oral QD 09/04/19 21 021 Inactive Levemir FlexTouch U-100 Insulin 100 unit/mL (3 mL) subcutaneous pen RxNorm: 317551 Inject 150 Unit(s) Subcutaneous BID 09/04/19 022 Inactive venlafaxine ER 150 mg tablet,extended release 24 hr RxNorm: 091924 Take 1 Tablet(s) Oral QD 09/04/19 Inactive clotrimazole-betame thasone 1 %-0.05 % topical cream RxNorm: 706777 Apply to rash on red area on left abdomen/chest Topical BID 08/10/19 21 Inactive amlodipine 5 mg tablet RxNorm: 009457 Take 1 Tablet(s) Oral QD 07/31/19 Inactive cephalexin 500 mg tablet RxNorm: 147399 Take 1 Tablet(s) Oral BID BID - Twice Daily 07/31/19 021 Inactive Start 08/01/20 pantoprazole 40 mg tablet,delayed release RxNorm: 776158 Take 1 Tablet(s) Oral QAM every morning 07/08/19 022 Inactive senna 8.6 mg tablet RxNorm: 789856 Take 1 Tablet(s) Oral QD 07/08/19 022 Inactive carbamazepine 200 mg tablet RxNorm: 617315 Take 1 Tablet(s) Oral BID 07/08/19 022 Inactive clopidogrel 75 mg tablet RxNorm: 557796 Take 1 Tablet(s) Oral QD 07/08/19 021 Inactive Blood Glucose Test strips RxNorm: Use 1 Test Strip QID at PRN 07/08/19 021 Inactive E11.42 Novolog Flexpen U-100 Insulin aspart 100 unit/mL (3 mL) subcutaneous RxNorm: 6694969 Administer per sliding scale Milliliter(s) Subcutaneous TID 151-200: 10 u; 201-250: 20 u; 251-300: 30 u; 301-350: 40 u; 351-400: 50 u. 07/08/19 022 Inactive lisinopril 5 mg tablet RxNorm: 717364 Take 1 Tablet(s) Oral QD 07/08/19 21 021 Inactive Novolog Flexpen U-100 Insulin aspart 100 unit/mL (3 mL) subcutaneous RxNorm: 6619571 Inject 85 Unit(s) Subcutaneous TID 07/08/19 21 022 Inactive pravastatin 80 mg tablet RxNorm: 932643 Take 1 Tablet(s) Oral QHS every night at bedtime 07/08/19 023 Inactive clotrimazole 1 % topical cream RxNorm: 117557 Apply to bilateral groin areas Topical BID 07/08/19 022 Inactive metoprolol succinate ER 200 mg tablet,extended release 24 hr RxNorm: 432657 Take 1 Tablet(s) Oral QD 07/08/19 21 021 Inactive Vitamin D3 25 mcg (1,000 unit) tablet RxNorm: 992690 Take 1 Tablet(s) Oral QD 07/08/19 021 Inactive isosorbide dinitrate 30 mg tablet RxNorm: 852739 Take 1 Tablet(s) Oral QD 07/08/19 021 Inactive Levemir FlexTouch U-100 Insulin 100 unit/mL (3 mL) subcutaneous pen RxNorm: 757221 Inject 140 Unit(s) Subcutaneous BID 07/08/19 021 Inactive torsemide 20 mg tablet RxNorm: 001819 Take 1 Tablet(s) Oral QD 07/08/19 21 023 Inactive venlafaxine 75 mg tablet RxNorm: 686859 Take 1 Tablet(s) Oral QD 07/08/19 021 Inactive acetaminophen 500 mg tablet RxNorm: 473864 Take 1 Tablet(s) Oral TID as needed for headache 06/18/19 021 Inactive acetaminophen 500 mg tablet RxNorm: 246556 Take 1 Tablet(s) Oral TID as needed for headache 06/18/19 021 Inactive Lyrica 100 mg capsule RxNorm: 090689 Take 1 Capsule(s) Oral QHS every night at bedtime 06/11/19 021 Inactive Lyrica 50 mg capsule RxNorm: 895754 Take 1 Capsule(s) Oral QAM every morning 06/10/19 21 021 Inactive hydrocortisone 2.5 % topical cream RxNorm: 196073 Apply to bilateral groin creases Topical BID 05/15/20 20 021 Inactive clotrimazole 1 % topical cream RxNorm: 248657 Apply to bilateral groin areas Topical BID 05/15/20 20 021 Inactive Lyrica 50 mg capsule RxNorm: 533104 Take 1 Capsule(s) Oral QAM every morning 05/14/20 20 020 Inactive Lyrica 100 mg capsule RxNorm: 545207 Take 1 Capsule(s) Oral QHS every night [...] Inactive Nystop 100,000 unit/gram topical powder RxNorm: 381106 Apply to abd folds, under breasts and L side of groin Topical BID x 14 days, then BID PRN 04/08/20 20 020 Inactive dx: yeast dermatitis Lyrica 100 mg capsule RxNorm: 200732 Take 1 Capsule(s) Oral QHS every night at bedtime 03/13/20 20 020 Inactive Lyrica 50 mg capsule RxNorm: 049958 Take 1 Capsule(s) Oral QAM every morning 03/13/20 20 020 Inactive ketoconazole 2 % shampoo RxNorm: 312640 Apply Topical two times a week with showers 03/11/20 20 Inactive cholecalciferol (vitamin D3) 50 mcg (2,000 unit) tablet RxNorm: 993112 Take 1 Tablet(s) Oral QD 03/11/20 20 021 Inactive Zetia 10 mg tablet RxNorm: 076564 Take 1 Tablet(s) Oral QD 03/07/20 021 Inactive Zetia 10 mg tablet RxNorm: 102088 Take 1 Tablet(s) Oral QD 03/07/20 20 Inactive Lyrica 50 mg capsule RxNorm: 945946 Take 1 Capsule(s) Oral QAM every morning 02/15/20 Inactive Lyrica 100 mg capsule RxNorm: 403030 Take 1 Capsule(s) Oral QHS every night at bedtime 02/15/20 Inactive Lyrica 100 mg capsule RxNorm: 116804 Take 1 Capsule(s) Oral QHS every night at bedtime 02/15/20 Inactive Lyrica 50 mg capsule RxNorm: 034096 Take 1 Capsule(s) Oral QAM every morning 02/15/20 20 Inactive metoprolol succinate ER 200 mg tablet,extended release 24 hr RxNorm: 670306 Take 1 Tablet(s) Oral QD 08/12/19 23 Active loperamide 2 mg capsule RxNorm: 375175 Take 1 Capsule(s) Oral QID as needed 06/12/19 22 Active hydralazine 50 mg tablet RxNorm: 062849 Take 1 Tablet(s) Oral QID 08/12/19 23 Active venlafaxine ER 75 mg capsule,extended release 24 hr RxNorm: 748176 Take 3 Capsule(s) Oral QD 06/12/19 22 023 Inactive polyethylene glycol 3350 17 gram/dose oral powder RxNorm: 804534 Take 17=1 capful Gram(s) Oral BID as needed mix with 4-8oz of liquid 06/12/19 22 024 Inactive icosapent ethyl 1 gram capsule RxNorm: 1118215 Take 2 Capsule(s) (2 gm) Oral BID with meals 10/07/19 23 023 Inactive Okay to dispense one 2gm tab if you have that available. Levemir FlexTouch U-100 Insulin 100 unit/mL (3 mL) subcutaneous pen RxNorm: 062427 Inject 80 Unit(s) Subcutaneous BID 07/14/19 23 023 Inactive Novolog Flexpen U-100 Insulin aspart 100 unit/mL (3 mL) subcutaneous RxNorm: 0216460 Insert 30 Unit(s) Subcutaneous TID with meals [...] Codes Status Date Referral: [facility] WPtel: [id number], [address] [id number] [place] Referral Records Received 09/21/2022 Referral: [facility] WPtel: [address] [id number] [place] Referral Completed 05/28/2021 Referral: General Cardiology Referral Complet ed 01/03/2021 Referral: General Psychologist Referral Close d Referral: General Psychiatrist Referral Patient/Family Scheduling Appointment Referral: General Outpatient Therapy Referral Initiated Instructions Comment Date Leonid is a Male being seen living at [facility]. Initial [facility] visit 01/2020. PMHx including DMII, CAD w/ 5 stents, Depression, Seizure Disorder and CKD stage 3. He moved into [facility] in 12/2019 but after a hospitalization 05/2021 he moved to the [facility] to have closer nursing attention. Sister Jyotsna involved in his care cell# [phone] Guardian: Giulia (tapan met in person 09/01/21), [...] Martines note from 11.08.2023 at [facility] (follow up 6 months)Colon & Rectal Surgery visit scheduled for 03/08/24 with Matilde Pérez PA-C. 02/08/2024
--- OUTSIDE RECORDS SUMMARY | 2024-02-19 14:16 | XMS_ITS | CCD ---
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 Manager Operational Name Role Phone [place] [employer] CONSULTANT-[facility] Primary Care Provider Leona vailable [place] [employer] RES[employer] CONSULTANT-C, [facility] Chronic [facility] Management U navailable Summary Purpose DataExchange Insurance Providers Payer name Policy type / Coverage type Covered republican ID Effective Begin Date Effective End Date [place] Part B [id number] Unknown Unknown [place] Medicare Part B [id number] Unknown Unknown Family history Sister Brittany Suggs [...] Snf 09/03/[address]: 4463390 Non-Smoker / No History of Smoking 09/02/[address]: 249280159 No Alcohol Consum ption 09/02/2020 Allergies, Adverse Reactions, Alerts Substance Reaction Codes Entered Date Inactivated Date Status * NO KNOWN FOOD ALLERGIES Unknown 07/13/2023 No Inactive Date Active LISINOPRIL RxNorm: 25547 02/12/2020 No Inactive Da te Active Metformin [...] E78. 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: [...] 09/07/2023 Resolved Coronary artery disease invo lving comanche [...] Fill Instructions torsemide 20 mg tablet RxNorm: 039020 1 TAB ORALLY DAILY (DX: EDEMA) 01/27/20 No Stop Date Active potassium chloride ER 20 mEq tablet,extended release(part/cryst) RxNorm: 4813386 2 TABS (40MEQ) ORALLY TWICE DAILY (DX: HYPOKALEMIA) 01/27/20 No Stop Date Active cephalexin 500 mg capsule RxNorm: 701478 Take 1 Capsule(s) Oral QID 12/17/19 24 024 Inactive cephalexin 500 mg capsule RxNorm: 527808 Take 1 Capsule(s) Oral QID 12/17/19 24 024 Inactive acetaminophen 500 mg tablet RxNorm: 819963 (MAX APAP:4GM/24HR) Take 1 Tablet(s) Oral TID as needed for pain 12/10/19 24 024 Active torsemide 20 mg tablet RxNorm: 114592 Take 1 Tablet(s) Oral QD 10/26/19 24 024 Inactive potassium chloride ER 20 mEq tablet,extended release RxNorm: 334847 Take 2 Tablet(s) Oral BID 10/26/19 24 025 Active torsemide 20 mg tablet RxNorm: 044294 Take 1 Tablet(s) Oral QD 10/26/19 24 024 Inactive potassium chloride ER 20 mEq tablet,extended release RxNorm: 510396 Take 2 Tablet(s) Oral BID 10/26/19 24 024 Inactive Artificial Tears (PF) 0.1 %-0.3 % drops in a dropperette RxNorm: 313233 Apply 1-2 Drop(s) Both eyes BID as needed 09/28/19 24 025 Active erythromycin 5 mg/gram (0.5 %) eye ointment RxNorm: 848658 Apply 1 Application Both eyes QHS every night at bedtime Instill ~1 cm ribbon into affected eye 09/28/19 24 Inactive Artificial Tears (PF) 0.1 %-0.3 % drops in a dropperette RxNorm: 829176 Apply 1-2 Drop(s) Both eyes BID as needed 09/28/19 24 Inactive erythromycin 5 mg/gram (0.5 %) eye ointment RxNorm: 603931 Apply 1 Application Both eyes QHS every night at bedtime Instill ~1 cm ribbon into affected eye 09/28/19 24 Inactive acetaminophen 500 mg tablet RxNorm: 552515 (MAX APAP:4GM/24HR) Take 1 Tablet(s) Oral TID as needed for pain 09/24/19 24 Inactive carvedilol 25 mg tablet RxNorm: 631278 Take 1 Tablet(s) Oral QD 09/08/19 24 No Stop Date Active pregabalin 100 mg capsule RxNorm: 406081 Take 1 Capsule(s) Oral QAM every morning 09/07/19 24 024 Inactive rosuvastatin 40 mg tablet RxNorm: 012455 Take 1 Tablet(s) Oral QPM every evening 07/13/19 24 No Stop Date Active ezetimibe 10 mg tablet RxNorm: 499405 Take 1 Tablet(s) Oral QD 07/13/19 24 No Stop Date Active bisacodyl 10 mg rectal suppository RxNorm: 806937 Insert 1 Suppository Rectal QD as needed 07/13/19 24 No Stop Date Active polyethylene glycol 3350 17 gram/dose oral powder RxNorm: 329682 Take 17 Gram(s) Oral BID as needed mix in 4-8ox water 07/13/19 24 No Stop Date Active ketoconazole 2 % shampoo RxNorm: 528513 Apply 1 Application Topical UD as directed 07/13/19 24 No Stop Date Active aripiprazole 15 mg tablet RxNorm: 246732 Take 1/2 Tablet(s) Oral QD 07/13/19 24 024 Inactive Ozempic 1 mg/dose (4 mg/3 mL) subcutaneous pen injector RxNorm: 1046304 Inject 1 Milligram(s) Subcutaneous QW once a week 07/13/19 24 No Stop Date Active Guaifenesin AC 10 mg-100 mg/5 mL oral liquid RxNorm: 168300 Take 10 Milliliter(s) Oral Q4H every four hours as needed 07/13/19 24 No Stop Date Active isosorbide mononitrate ER 60 mg tablet,extended release 24 hr RxNorm: 250034 Take 1 Tablet(s) Oral QD 07/13/19 24 024 Inactive ammonium lactate 12 % topical cream RxNorm: 992228 Apply 1 Application Topical BID 07/13/19 24 No Stop Date Active hydrocortisone 2.5 % topical cream RxNorm: 663777 Apply 1 Application Topical BID as needed 07/13/19 24 No Stop Date Active rosuvastatin 20 mg sprinkle capsule RxNorm: 2460400 Take 1 Capsule(s) Oral QD 07/13/19 24 No Stop Date Active Vascepa 1 gram capsule RxNorm: 8647183 Take 2 Capsule(s) Oral BID 07/13/19 24 No Stop Date Active venlafaxine ER 75 mg capsule,extended release 24 hr RxNorm: 709765 Take 3 Capsule(s) Oral QD 07/13/19 24 No Stop Date Active Basaglar KwikPen U-100 Insulin 100 unit/mL (3 mL) subcutaneous RxNorm: 6847725 Inject 30U SubQ twice daily 07/07/19 24 024 Inactive Please dispense one month supply. Basaglar KwikPen U-100 Insulin 100 unit/mL (3 mL) subcutaneous RxNorm: 3939560 Inject 30U SubQ twice daily 07/07/19 24 024 Inactive Please dispense one month supply. pregabalin 150 mg capsule RxNorm: 999430 Take 1 Capsule(s) Oral QHS every night at bedtime 07/05/19 24 024 Inactive pregabalin 150 mg capsule RxNorm: 536156 Take 1 Capsule(s) Oral QHS every night at bedtime 07/05/19 24 024 Inactive polyethylene glycol 3350 17 gram/dose oral powder RxNorm: 044235 Take 1 Packet Oral QD as needed (1 packet = 17g) mix with 4-8oz of liquid 06/15/19 024 Inactive bisacodyl 10 mg rectal suppository RxNorm: 126640 Insert one suppository per rectum once daily as needed for constipation 06/15/19 024 Inactive bisacodyl 10 mg rectal suppository RxNorm: 295041 Insert one suppository per rectum once daily as needed for constipation 06/15/19 024 Inactive pregabalin 100 mg capsule RxNorm: 011870 Take 1 Capsule(s) Oral QAM every morning 04/27/20 024 Inactive Levemir FlexPen 100 unit/mL (3 mL) solution subcutaneous insulin pen RxNorm: 250861 Inject 30 Unit(s) Subcutaneous BID 04/27/20 024 Inactive rosuvastatin 40 mg tablet RxNorm: 317587 Take 1 Tablet(s) Oral QPM every evening 04/16/20 024 Inactive D/C rosuvastatin 20mg venlafaxine ER 75 mg capsule,extended release 24 hr RxNorm: 002884 Take 3 Capsule(s) Oral QD 04/14/20 23 023 Inactive pregabalin 100 mg capsule RxNorm: 843252 Take 1 Capsule(s) Oral QAM every morning [...] meter clotrimazole 1 % topical cream RxNorm: 241947 Take apply topically to abdominal folds twice daily for 14 days 03/12/20 024 Inactive Ozempic 1 mg/dose (4 mg/3 mL) subcutaneous pen injector RxNorm: 0268855 Inject 1 Milligram(s) Subcutaneous QW once a week 03/11/20 023 Inactive rosuvastatin 20 mg tablet RxNorm: 986561 Take 1 Tablet(s) Oral QD 02/26/20 23 023 Inactive d/c pravastatin 80mg Ozempic 1 mg/dose (4 mg/3 mL) subcutaneous pen injector RxNorm: 4162282 Inject 1 Milligram(s) Subcutaneous QW once a week 02/20/20 23 023 Inactive pregabalin 150 mg capsule RxNorm: 188444 Take 1 Capsule(s) Oral HS at bed time 02/19/20 23 023 Inactive pregabalin 100 mg capsule RxNorm: 351185 Take 1 Capsule(s) Oral QAM every morning 02/18/20 023 Inactive venlafaxine ER 75 mg capsule,extended release 24 hr RxNorm: 375065 Take 3 Capsule(s) Oral QD 02/04/20 23 023 Inactive FreeStyle Chema 2 Sensor kit RxNorm: use as directed 02/04/20 23 023 Inactive FreeStyle Chema 2 Sensor kit RxNorm: use as directed 02/04/20 23 024 Inactive fluconazole 150 mg tablet RxNorm: 896980 Take 1 Tablet(s) Oral on day 3 and on day 6 02/03/20 024 Inactive chlorthalidone 25 mg tablet RxNorm: 713130 Take 1 Tablet(s) Oral QAM every morning 02/03/20 23 No Stop Date Active venlafaxine ER 150 mg capsule,extended release 24 hr RxNorm: 426244 Take 1 Capsule(s) Oral QD 02/03/20 23 023 Inactive acetaminophen 500 mg tablet RxNorm: 582809 1 TABLET ORALLY 3 TIMES DAILY (MAX APAP:4GM/24HR) 12/15/19 23 023 Inactive clotrimazole 1 % topical cream RxNorm: 808787 apply 1g topically to top of feet and in between toes BID 12/09/19 23 023 Inactive potassium chloride ER 20 mEq tablet,extended release RxNorm: 152834 Take 1 Tablet(s) Oral BID 12/09/19 23 024 Inactive d/c 20mEq once daily (sent from hospital) nystatin 100,000 unit/gram topical powder RxNorm: 127656 APPLY TO AFFECTED AREAS TOPICALLY 2 TIMES DAILY 11/21/19 024 Inactive Nystop 100,000 unit/gram topical powder RxNorm: 635275 Apply to abd folds, under breasts and L side of groin Topical BID x 14 days, then BID PRN 11/20/19 023 Inactive dx: yeast dermatitis [place] Ultra Strength 4 %-30 %-10 % topical cream RxNorm: 293804 Apply 1 Gram(s) Topical QID PRN to feet and legs for neuropathic pain 11/11/19 024 Inactive clotrimazole 1 % topical cream RxNorm: 110584 Apply 1/2 Gram(s) Topical BID Apply to affected areas of groin, periarea, and abdominal topically 2 times daily 11/10/19 023 Inactive hydrocortisone 2.5 % topical cream RxNorm: 620439 Apply 1/2 Gram(s) Topical BID as needed 11/10/19 024 Inactive Humulin R U-500 (Concentrated) Insulin 500 unit/mL subcutaneous soln RxNorm: 051804 Inject 100 Unit(s) Subcutaneous TID 10/07/19 024 Inactive Levemir FlexPen 100 unit/mL (3 mL) solution subcutaneous insulin pen RxNorm: 511520 Inject 30 Unit(s) Subcutaneous BID 10/07/19 023 Inactive Ozempic 0.25 mg or 0.5 mg (2 mg/3 mL) subcutaneous pen injector RxNorm: 1831323 Inject 1/2 Milligram(s) Subcutaneous QW once a week 10/07/19 024 Inactive aripiprazole 15 mg tablet RxNorm: 396929 1/2 TAB (7.5MG) ORALLY DAILY (DX:MAJOR DEPRESSIVE DISORDER) 09/23/19 023 Inactive Lancets,Thin 28 gauge RxNorm: Use 1 as directed QID 09/15/19 23 024 Inactive Accu-Chek Guide test strips RxNorm: Use 1 Test Strip QID 09/15/19 23 023 Inactive ok to substitute with any covered alternative test strip torsemide 20 mg tablet RxNorm: 724489 Take 1 Tablet(s) Oral BID 09/09/19 23 024 Inactive d/c once daily dosing carvedilol 25 mg tablet RxNorm: 792419 Take 1 Tablet(s) Oral QD 08/25/19 23 024 Inactive pregabalin 150 mg capsule RxNorm: 204283 1 Capsule(s) Oral HS at bed time 08/18/19 23 023 Inactive pregabalin 100 mg capsule RxNorm: 541675 1 Capsule(s) Oral QAM every morning 08/18/19 23 023 Inactive carvedilol 25 mg tablet RxNorm: 948144 1 Tablet(s) Oral QD 07/28/19 23 023 Inactive lisinopril 20 mg tablet RxNorm: 130826 Give 1 Tablet(s) Oral QD 07/28/19 23 023 Inactive Lyrica 150 mg capsule RxNorm: 690217 Take 1 Capsule(s) Oral QHS every night at bedtime 07/19/19 023 Inactive d/c 100mg dose Diflucan 150 mg tablet RxNorm: 380301 Take 1 Tablet(s) Oral QD repeat on day 3 and 6 07/19/19 23 023 Inactive pregabalin 100 mg capsule RxNorm: 978275 Take 1 Capsule(s) Oral QAM every morning 07/19/19 23 023 Inactive gatifloxacin 0.5 % eye drops RxNorm: 163920 Instill 1 Drop(s) as directed TID Instill 1 drop in to affected eye(s) starting 1 day prior to surgery and continue until gone (do not exceed 4 weeks). 07/13/19 23 023 Inactive carvedilol 25 mg tablet RxNorm: 362926 2 Tablet(s) Oral BID 07/13/19 23 023 Inactive Humulin R Regular U-100 Insulin 100 unit/mL injection solution RxNorm: 385576 85 Unit(s) Injection TID 07/13/19 23 023 Inactive ketorolac 0.5 % eye drops RxNorm: 777231 Instill 1 Drop(s) as directed QID Instill 1 drop into affected eye(s) 4 times daily starting 1 day prior to surgery and continue until gone (do not exceed 4 weeks). 07/13/19 23 023 Inactive Diflucan 150 mg tablet RxNorm: 424162 Take 1 Tablet(s) Oral QD repeat on day 3 and 6 06/30/19 23 023 Inactive Accu-Chek Guide test strips RxNorm: Use 1 Test Strip QID Use 1 test strip to monitor blood glucose 4 times daily and as needed. Dx:E11.42. 06/23/19 23 023 Inactive ok to substitute with any covered alternative test strip dextromethorphan-gu aifenesin 10 mg-100 mg/5 mL oral liquid RxNorm: 828848 Take 10 Milliliter(s) Oral every 4 hours as needed for cough 06/19/19 23 023 Inactive dextromethorphan-gu aifenesin 10 mg-100 mg/5 mL oral liquid RxNorm: 144276 Take 10 Milliliter(s) Oral every 4 hours as needed for cough 06/19/19 23 023 Inactive Lyrica 150 mg capsule RxNorm: 418060 Take 1 Capsule(s) Oral QHS every night at bedtime 06/18/19 23 023 Inactive d/c 100mg dose aripiprazole 15 mg tablet RxNorm: 784478 1/2 TAB (7.5MG) ORALLY DAILY (DX:MAJOR DEPRESSIVE DISORDER) 06/05/19 23 023 Inactive pregabalin 100 mg capsule RxNorm: 245502 1 Capsule(s) Oral QAM every morning 06/02/19 23 023 Inactive Banophen 50 mg capsule RxNorm: 4902296 Take 1 Capsule(s) Oral Q6H every 6 hours as needed 05/19/19 23 No Stop Date Active Novolog Flexpen U-100 Insulin aspart 100 unit/mL (3 mL) subcutaneous RxNorm: 9707805 Inject 10 Unit(s) Subcutaneous QHS every night at bedtime with nighttime snack 04/08/20 22 022 Inactive Novolog Flexpen U-100 Insulin aspart 100 unit/mL (3 mL) subcutaneous RxNorm: 0628456 Inject 42 Unit(s) Subcutaneous TID in addition to sliding scale 04/08/20 022 Inactive d/c 36u albuterol sulfate HFA 90 mcg/actuation aerosol inhaler RxNorm: 9844780 Take 2 Puff(s) Inhalation Q4H every four hours as needed as needed for SOB, cough, or wheezing 04/07/20 030 Active Banophen 50 mg capsule RxNorm: 2607964 Take 1 Capsule(s) Oral Q6H every 6 hours as needed 04/06/20 023 Inactive diphenhydramine 50 mg tablet RxNorm: 4196588 Take 1 Tablet(s) Oral Q6H every 6 hours as needed 04/06/20 022 Inactive diphenhydramine 50 mg tablet RxNorm: 7464058 1 Tablet(s) Oral Q6H every 6 hours as needed 04/06/20 022 Inactive Abilify 15 mg tablet RxNorm: 620883 1/2 Tablet(s) Oral QD 03/10/20 023 Inactive Shingrix (PF) 50 mcg/0.5 mL intramuscular suspension, kit RxNorm: 6325206 Administer 1/2 Milliliter(s) Intramuscular QD one time shingrix step 2 ( step 1 given 11/04/21) WITH needle - Nursing please administer upon arrival and once administered post a bridge message with date of administration, cuff maker, expiration date, and lot# so we can update [facility] 02/18/20 22 022 Inactive dispense with needle Shingrix (PF) 50 mcg/0.5 mL intramuscular suspension, kit RxNorm: 1534019 Administer 1/2 Milliliter(s) Intramuscular QD one time shingrix step 2 ( step 1 given 11/04/21) WITH needle - Nursing please administer upon arrival and once administered post a bridge message with date of administration, cuff maker, expiration date, and lot# so we can update [facility] 02/18/20 22 022 Inactive dispense with needle polyethylene glycol 3350 17 gram/dose oral powder RxNorm: 940568 Take 17=1 capful Gram(s) Oral QD mix with 4-8oz of liquid 01/08/20 22 023 Inactive take this in addition to BID prn order Lyrica 100 mg capsule RxNorm: 024857 Take 1 Capsule(s) Oral QAM every morning 01/08/20 22 022 Inactive d/c 50mg dose acetaminophen 500 mg tablet RxNorm: 684528 Take 1 Tablet(s) Oral TID 01/08/20 22 022 Inactive d/c PRN order Lyrica 150 mg capsule RxNorm: 194740 Take 1 Capsule(s) Oral QHS every night at bedtime 01/08/20 22 023 Inactive d/c 100mg dose Abilify 5 mg tablet RxNorm: 020728 Take 1 Tablet(s) Oral QD take 1 tab po QD #30 refill 5 dx: MDD 12/12/19 22 022 Inactive Abilify 5 mg tablet RxNorm: 782206 Take 1 Tablet(s) Oral QD take 1 tab po QD #30 refill 5 dx: MDD 12/12/19 22 022 Inactive Novolog Flexpen U-100 Insulin aspart 100 unit/mL (3 mL) subcutaneous RxNorm: 7801368 Inject 42 Unit(s) Subcutaneous TID in addition to sliding scale 12/10/19 22 022 Inactive d/c 36u chlorthalidone 25 mg tablet RxNorm: 227875 Take 1 Tablet(s) Oral QAM every morning 12/10/19 22 023 Inactive pregabalin 50 mg capsule RxNorm: 976247 Take 1 Capsule(s) Oral QAM every morning 11/12/19 22 022 Inactive tetanus-diphtheria toxoids-Td 2 Lf unit-2 Lf unit/0.5 mL IM suspension RxNorm: 139 Take 0.5 Miscellaneous Intramuscular 11/12/19 22 022 Inactive need tdap - nursing to administer upon arrival pregabalin 50 mg capsule RxNorm: 436793 Take 1 Capsule(s) Oral QAM every morning 10/16/19 22 022 Inactive pregabalin 50 mg capsule RxNorm: 499247 Take 1 Capsule(s) Oral QAM every morning 10/16/19 22 022 Inactive pregabalin 50 mg capsule RxNorm: 039363 1 Capsule(s) Oral QAM every morning 10/15/19 22 022 Inactive Shingrix (PF) 50 mcg/0.5 mL intramuscular suspension, kit RxNorm: 0499652 Administer 1/2 Milliliter(s) Intramuscular one time Nursing please administer upon arrival and once administered post a bridge message with date of administration, cuff maker, expiration date, and lot# so we can update [facility]. 10/09/19 22 022 Inactive shingrix step 1 Shingrix (PF) 50 mcg/0.5 mL intramuscular suspension, kit RxNorm: 0359670 Administer 1/2 Milliliter(s) Intramuscular one time Nursing please administer upon arrival and once administered post a bridge message with date of administration, cuff maker, expiration date, and lot# so we can update [facility]. 10/09/19 22 022 Inactive shingrix step 1 cholecalciferol (vitamin D3) 1,250 mcg (50,000 unit) capsule RxNorm: 410308 Take 1 Capsule(s) Oral QW once a [...] aspart 100 unit/mL (3 mL) subcutaneous RxNorm: 5959791 Inject 10 Unit(s) Subcutaneous QHS every night at bedtime with nighttime snack 10/08/19 22 022 Inactive Shingrix (PF) 50 mcg/0.5 mL intramuscular suspension, kit RxNorm: 3365927 ADMINISTER 2-DOSE SERIES PER CDC GUIDELINES 10/08/19 22 05/23/2 022 Active Shingrix (PF) 50 mcg/0.5 mL intramuscular suspension, kit RxNorm: 9977426 ADMINISTER 2-DOSE SERIES PER CDC GUIDELINES 10/08/19 22 Inactive Novolog Flexpen U-100 Insulin aspart 100 unit/mL (3 mL) subcutaneous RxNorm: 2770738 Inject 36 Unit(s) Subcutaneous TID in addition to sliding scale 10/08/19 Inactive Novofine Autocover 30 gauge x 1/3 needle RxNorm: Use 1 Miscellaneous UD as directed Use 1 needle as directed to administer insulin 5 times a day Dx:E11.42. 10/03/19 Inactive ok to substitute with any covered alternative pen needle benzoyl peroxide 10 % topical cleanser RxNorm: 465055 Apply 1 Application Topical QD apply to face, wash rinse and dry once daily (may change to QOD if drying) 08/19/19 Inactive (%covered by insurance) #60ml refill 11 dx: acne benzoyl peroxide 10 % topical cleanser RxNorm: 804940 Apply 1 Application Topical QD apply to face, wash rinse and dry once daily (may change to QOD if drying) 08/19/19 022 Inactive (%covered by insurance) #60ml refill 11 dx: acne benzoyl peroxide 10 % topical cleanser RxNorm: 583619 Apply 1 Application Topical QD apply to face, wash rinse and dry once daily (may change to QOD if drying) 08/19/19 022 Inactive (%covered by insurance) #60ml refill 11 dx: acne Lyrica 50 mg capsule RxNorm: 292779 Take 1 Capsule(s) Oral QAM every morning Take 1 capsule by mouth once daily 08/19/19 22 022 Inactive benzoyl peroxide 10 % topical cleanser RxNorm: 138693 Apply 1 Application Topical QD apply to face, wash rinse and dry once daily (may change to QOD if drying) 08/19/19 22 022 Inactive (%covered by insurance) #60ml refill 11 dx: acne Lyrica 100 mg capsule RxNorm: 369599 Take 1 Capsule(s) Oral QHS every night at bedtime Take 1 capsule by mouth once daily at bedtime 08/19/19 22 022 Inactive Lyrica 100 mg capsule RxNorm: 827744 Take 1 Capsule(s) Oral QHS every night at bedtime Take 1 capsule by mouth once daily at bedtime 08/16/19 22 022 Inactive Lyrica 50 mg capsule RxNorm: 940342 Take 1 Capsule(s) Oral QAM every morning Take 1 capsule by mouth once daily 08/16/19 22 022 Inactive Levemir FlexTouch U-100 Insulin 100 unit/mL (3 mL) subcutaneous pen RxNorm: 882793 Inject 86 Unit(s) Subcutaneous BID 08/05/19 22 022 Inactive d/c 83units BID Lyrica 100 mg capsule RxNorm: 897302 Take 1 Capsule(s) Oral QHS every night at bedtime Take 1 capsule by mouth once daily at bedtime 07/14/19 22 022 Inactive Lyrica 50 mg capsule RxNorm: 458165 Take 1 Capsule(s) Oral QAM every morning Take 1 capsule by mouth once daily 07/14/19 22 022 Inactive Levemir FlexTouch U-100 Insulin 100 unit/mL (3 mL) subcutaneous pen RxNorm: 461980 Inject 83 Unit(s) Subcutaneous BID 07/08/19 22 [...] test strip hydralazine 50 mg tablet RxNorm: 131770 Take 1 Tablet(s) Oral QID 05/05/20 21 022 Inactive venlafaxine ER 225 mg tablet,extended release 24 hr RxNorm: 725219 Take 1 Tablet(s) Oral QD 05/05/20 21 021 Inactive venlafaxine ER 225 mg tablet,extended release 24 hr RxNorm: 019206 Take 1 Tablet(s) Oral QD 05/05/20 21 022 Inactive isosorbide mononitrate ER 30 mg tablet,extended release 24 hr RxNorm: 469699 Take 1 Tablet(s) Oral QD 05/05/20 21 024 Inactive hydralazine 50 mg tablet RxNorm: 577889 Take 1 Tablet(s) Oral QID 05/05/20 21 021 Inactive aspirin 81 mg tablet,delayed release RxNorm: 699403 Take 1 Tablet(s) Oral QD 03/31/20 21 022 Inactive Vitamin D2 1,250 mcg (50,000 unit) capsule RxNorm: 2690879 Take 1 Capsule(s) Oral QW once a week x 12 weeks 03/31/20 21 022 Inactive Vitamin D2 1,250 mcg (50,000 unit) capsule RxNorm: 6017496 Take 1 Capsule(s) Oral QW once a week 03/31/20 021 Inactive Zetia 10 mg tablet RxNorm: 858271 Take 1 Tablet(s) Oral QD 03/31/20 024 Inactive Zetia 10 mg tablet RxNorm: 213472 Take 1 Tablet(s) Oral QD 03/31/20 021 Inactive hydralazine 25 mg tablet RxNorm: 391344 Take 1 Tablet(s) Oral QID 03/31/20 021 Inactive hydralazine 25 mg tablet RxNorm: 833169 Take 1 Tablet(s) Oral QID 03/31/20 021 Inactive hydralazine 10 mg tablet RxNorm: 065956 Take 1 Tablet(s) Oral QID 03/03/20 021 Inactive cephalexin 500 mg tablet RxNorm: 446721 Take 1 Tablet(s) Oral QID 02/27/20 021 Inactive cephalexin 500 mg tablet RxNorm: 198872 Take 1 Tablet(s) Oral QID 02/27/20 021 Inactive lisinopril 40 mg tablet RxNorm: 098266 Take 1 Tablet(s) Oral QD 02/11/20 023 Inactive Eliquis 5 mg tablet RxNorm: 4642564 Take 1 Tablet(s) Oral BID 01/05/20 022 Inactive Eliquis 5 mg tablet RxNorm: 5847990 Take 2 Tablet(s) Oral QD 01/01/20 21 021 Inactive Lyrica 50 mg capsule RxNorm: 476104 Take 1 Capsule(s) Oral QAM every morning 12/24/19 021 Inactive Lyrica 100 mg capsule RxNorm: 999290 Take 1 Capsule(s) Oral QHS every night at bedtime 12/24/19 21 021 Inactive clotrimazole 1 % topical cream RxNorm: 709827 Apply to right foot and toes Topical BID 12/04/19 21 023 Inactive metoprolol succinate ER 200 mg tablet,extended release 24 hr RxNorm: 783583 Take 1 Tablet(s) Oral QD 12/04/19 21 023 Inactive ciprofloxacin 500 mg tablet RxNorm: 512180 Take 1 Tablet(s) Oral QD 11/30/19 21 021 Inactive DX ofloxacin otic drops Accu-Chek Guide test strips RxNorm: USE 1 TO CHECK GLUCOSE 4 TIMES DAILY AND NEEDED 11/15/19 21 023 Inactive Blood Glucose Test strips RxNorm: Use 1 Test Strip QID at PRN 11/05/19 21 023 Inactive E11.42 lisinopril 30 mg tablet RxNorm: 573783 Take 1 Tablet(s) Oral QD 10/30/19 021 Inactive lisinopril 20 mg tablet RxNorm: 822313 Take 1 Tablet(s) Oral QD 10/23/19 021 Inactive lisinopril 20 mg tablet RxNorm: 455057 Take 1 Tablet(s) Oral QD 10/23/19 021 Inactive lisinopril 10 mg tablet RxNorm: 035038 Take 1 Tablet(s) Oral QD 10/02/19 021 Inactive icosapent ethyl 1 gram capsule RxNorm: 9983809 Take 2 Capsule(s) (2 gm) Oral BID with meals 09/12/19 024 Inactive Okay to dispense one 2gm tab if you have that available. icosapent ethyl 1 gram capsule RxNorm: 2083685 Take 2 Capsule(s) Oral BID 09/12/19 21 021 Inactive Okay to dispense one 2gm tab if you have that available. amlodipine 10 mg tablet RxNorm: 262970 Take 1 Tablet(s) Oral QD 09/04/19 21 022 Inactive aspirin 81 mg tablet,delayed release RxNorm: 816473 Take 1 Tablet(s) Oral QD 09/04/19 21 021 Inactive Levemir FlexTouch U-100 Insulin 100 unit/mL (3 mL) subcutaneous pen RxNorm: 231346 Inject 150 Unit(s) Subcutaneous BID 09/04/19 21 022 Inactive venlafaxine ER 150 mg tablet,extended release 24 hr RxNorm: 932402 Take 1 Tablet(s) Oral QD 09/04/19 Inactive clotrimazole-betame thasone 1 %-0.05 % topical cream RxNorm: 930238 Apply to rash on red area on left abdomen/chest Topical BID 08/10/19 21 Inactive amlodipine 5 mg tablet RxNorm: 312317 Take 1 Tablet(s) Oral QD 07/31/19 Inactive cephalexin 500 mg tablet RxNorm: 444236 Take 1 Tablet(s) Oral BID BID - Twice Daily 07/31/19 Inactive Start 08/01/20 pantoprazole 40 mg tablet,delayed release RxNorm: 936522 Take 1 Tablet(s) Oral QAM every morning 07/08/19 Inactive senna 8.6 mg tablet RxNorm: 689386 Take 1 Tablet(s) Oral QD 07/08/19 Inactive carbamazepine 200 mg tablet RxNorm: 591867 Take 1 Tablet(s) Oral BID 07/08/19 Inactive clopidogrel 75 mg tablet RxNorm: 960504 Take 1 Tablet(s) Oral QD 07/08/19 Inactive Blood Glucose Test strips RxNorm: Use 1 Test Strip QID at PRN 07/08/19 21 Inactive E11.42 Novolog Flexpen U-100 Insulin aspart 100 unit/mL (3 mL) subcutaneous RxNorm: 7280858 Administer per sliding scale Milliliter(s) Subcutaneous TID 151-200: 10 u; 201-250: 20 u; 251-300: 30 u; 301-350: 40 u; 351-400: 50 u. 07/08/19 Inactive lisinopril 5 mg tablet RxNorm: 881776 Take 1 Tablet(s) Oral QD 07/08/19 Inactive Novolog Flexpen U-100 Insulin aspart 100 unit/mL (3 mL) subcutaneous RxNorm: 1476662 Inject 85 Unit(s) Subcutaneous TID 07/08/19 Inactive pravastatin 80 mg tablet RxNorm: 066193 Take 1 Tablet(s) Oral QHS every night at bedtime 07/08/19 023 Inactive clotrimazole 1 % topical cream RxNorm: 574703 Apply to bilateral groin areas Topical BID 07/08/19 022 Inactive metoprolol succinate ER 200 mg tablet,extended release 24 hr RxNorm: 795849 Take 1 Tablet(s) Oral QD 07/08/19 021 Inactive Vitamin D3 25 mcg (1,000 unit) tablet RxNorm: 317309 Take 1 Tablet(s) Oral QD 07/08/19 021 Inactive isosorbide dinitrate 30 mg tablet RxNorm: 597242 Take 1 Tablet(s) Oral QD 07/08/19 021 Inactive Levemir FlexTouch U-100 Insulin 100 unit/mL (3 mL) subcutaneous pen RxNorm: 167244 Inject 140 Unit(s) Subcutaneous BID 07/08/19 021 Inactive torsemide 20 mg tablet RxNorm: 342087 Take 1 Tablet(s) Oral QD 07/08/19 023 Inactive venlafaxine 75 mg tablet RxNorm: 202826 Take 1 Tablet(s) Oral QD 07/08/19 021 Inactive acetaminophen 500 mg tablet RxNorm: 077360 Take 1 Tablet(s) Oral TID as needed for headache 06/18/19 021 Inactive acetaminophen 500 mg tablet RxNorm: 262297 Take 1 Tablet(s) Oral TID as needed for headache 06/18/19 021 Inactive Lyrica 100 mg capsule RxNorm: 688811 Take 1 Capsule(s) Oral QHS every night at bedtime 06/11/19 021 Inactive Lyrica 50 mg capsule RxNorm: 024288 Take 1 Capsule(s) Oral QAM every morning 06/10/19 021 Inactive hydrocortisone 2.5 % topical cream RxNorm: 890886 Apply to bilateral groin creases Topical BID 05/15/20 20 021 Inactive clotrimazole 1 % topical cream RxNorm: 615057 Apply to bilateral groin areas Topical BID 05/15/20 20 Inactive Lyrica 50 mg capsule RxNorm: 343457 Take 1 Capsule(s) Oral QAM every morning 05/14/20 20 Inactive Lyrica 100 mg capsule RxNorm: 431955 Take 1 Capsule(s) Oral QHS every night [...] Inactive Nystop 100,000 unit/gram topical powder RxNorm: 631320 Apply to abd folds, under breasts and L side of groin Topical BID x 14 days, then BID PRN 04/08/20 20 Inactive dx: yeast dermatitis Lyrica 100 mg capsule RxNorm: 275546 Take 1 Capsule(s) Oral QHS every night at bedtime 03/13/20 20 Inactive Lyrica 50 mg capsule RxNorm: 961610 Take 1 Capsule(s) Oral QAM every morning 03/13/20 20 Inactive ketoconazole 2 % shampoo RxNorm: 587004 Apply Topical two times a week with showers 03/11/20 20 024 Inactive cholecalciferol (vitamin D3) 50 mcg (2,000 unit) tablet RxNorm: 337699 Take 1 Tablet(s) Oral QD 03/11/20 20 021 Inactive Zetia 10 mg tablet RxNorm: 309859 Take 1 Tablet(s) Oral QD 03/07/20 20 021 Inactive Zetia 10 mg tablet RxNorm: 951353 Take 1 Tablet(s) Oral QD 03/07/20 20 020 Inactive Lyrica 50 mg capsule RxNorm: 765282 Take 1 Capsule(s) Oral QAM every morning 02/15/20 20 Inactive Lyrica 100 mg capsule RxNorm: 476320 Take 1 Capsule(s) Oral QHS every night at bedtime 02/15/20 20 020 Inactive Lyrica 100 mg capsule RxNorm: 574058 Take 1 Capsule(s) Oral QHS every night at bedtime 02/15/20 Inactive Lyrica 50 mg capsule RxNorm: 505924 Take 1 Capsule(s) Oral QAM every morning 02/15/20 20 Inactive metoprolol succinate ER 200 mg tablet,extended release 24 hr RxNorm: 518681 Take 1 Tablet(s) Oral QD 08/12/19 23 Active loperamide 2 mg capsule RxNorm: 313955 Take 1 Capsule(s) Oral QID as needed 06/12/19 22 Active hydralazine 50 mg tablet RxNorm: 857168 Take 1 Tablet(s) Oral QID 08/12/19 23 Active venlafaxine ER 75 mg capsule,extended release 24 hr RxNorm: 325396 Take 3 Capsule(s) Oral QD 06/12/19 22 023 Inactive polyethylene glycol 3350 17 gram/dose oral powder RxNorm: 482777 Take 17=1 capful Gram(s) Oral BID as needed mix with 4-8oz of liquid 06/12/19 22 024 Inactive icosapent ethyl 1 gram capsule RxNorm: 5247107 Take 2 Capsule(s) (2 gm) Oral BID with meals 10/07/19 23 023 Inactive Okay to dispense one 2gm tab if you have that available. Levemir FlexTouch U-100 Insulin 100 unit/mL (3 mL) subcutaneous pen RxNorm: 347008 Inject 80 Unit(s) Subcutaneous BID 07/14/19 23 023 Inactive Novolog Flexpen U-100 Insulin aspart 100 unit/mL (3 mL) subcutaneous RxNorm: 4741850 Insert 30 Unit(s) Subcutaneous TID with meals [...] [facility] WPtel: [address], [address] [id number] [place] Referral Records Received 09/21/2022 Referral: [facility] [place]: [address] [id number] [place] Referral Completed 05/28/2021 Referral: General Cardiology Referral Complet ed 01/03/2021 Referral: General Psychologist Referral Close d Referral: General Psychiatrist Referral Patient/Family Scheduling Appointment Referral: General Outpatient Therapy Referral Initiated Instructions Comment Date Leonid is a Male being seen living at [facility]. Initial [facility] visit 01/2020. PMHx including DMII, CAD w/ 5 stents, Depression, Seizure Disorder and CKD stage 3. He moved into [facility] in 12/2019 but after a hospitalization 05/2021 he moved to the [facility] to have closer nursing attention. Sister Jyotsna involved in his care cell# [phone] Guardian: Don (tapan met in person 09/01/21), [...] Martines note from 11.08.2023 at [facility] (follow up 6 months)Colon & Rectal Surgery visit scheduled for 03/08/24 with Matilde Pérez PA-C. 02/08/2024
--- OUTSIDE RECORDS SUMMARY | 2024-02-19 14:17 | XMS_ITS | CCD ---
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 Name Role Phone Arpit VIDALKeeganHarrison Primary Care Provider Leona vailable Harrison [facility] U navailable Summary Purpose DataExchange Insurance Providers Payer name Policy type / Coverage type Covered democrat ID Effective Begin Date Effective End Date [place] Part B [id number] Unknown Unknown [place] Part B [id number] Unknown Unknown Family history Sister Brittany Suggs [...] Unknown Prison 09/03/[address]: 3190330 Non-Smoker / No History of Smoking 09/02/[address]: [id number] No Alcohol Consum ption 09/02/2020 Allergies, Adverse Reactions, Alerts Substance Reaction Codes Entered Date Inactivated Date Status * NO KNOWN FOOD ALLERGIES Unknown 07/13/2023 No Inactive Date Active LISINOPRIL RxNorm: 77976 02/12/2020 No Inactive Da te Active Metformin [...] E78. 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 Other [facility] (current) dr ug therapy ICD-10: Z79.899 ICD-9: [...] 09/07/2023 Resolved Coronary artery disease invo [facility] [...] 60 mg tablet,extended release 24 hr RxNorm: 507766 Take 1 Tablet(s) Oral QD 02/01/20 24 025 Active aripiprazole 15 mg tablet RxNorm: 815973 Take 1/2 Tablet(s) Oral QD 02/01/20 24 025 Active torsemide 20 mg tablet RxNorm: 150882 1 TAB ORALLY DAILY (DX: EDEMA) 01/27/20 No Stop Date Active potassium chloride ER 20 mEq tablet,extended release(part/cryst) RxNorm: 9394493 2 TABS (40MEQ) ORALLY TWICE DAILY (DX: HYPOKALEMIA) 01/27/20 No Stop Date Active cephalexin 500 mg capsule RxNorm: 953888 Take 1 Capsule(s) Oral QID 12/17/19 24 024 Inactive cephalexin 500 mg capsule RxNorm: 834412 Take 1 Capsule(s) Oral QID 12/17/19 24 024 Inactive acetaminophen 500 mg tablet RxNorm: 961248 (MAX APAP:4GM/24HR) Take 1 Tablet(s) Oral TID as needed for pain 12/10/19 24 024 Active torsemide 20 mg tablet RxNorm: 475328 Take 1 Tablet(s) Oral QD 10/26/19 24 024 Inactive potassium chloride ER 20 mEq tablet,extended release RxNorm: 830038 Take 2 Tablet(s) Oral BID 10/26/19 24 025 Active torsemide 20 mg tablet RxNorm: 354925 Take 1 Tablet(s) Oral QD 10/26/19 24 024 Inactive potassium chloride ER 20 mEq tablet,extended release RxNorm: 266587 Take 2 Tablet(s) Oral BID 10/26/19 24 024 Inactive Artificial Tears (PF) 0.1 %-0.3 % drops in a dropperette RxNorm: 925364 Apply 1-2 Drop(s) Both eyes BID as needed 09/28/19 24 025 Active erythromycin 5 mg/gram (0.5 %) eye ointment RxNorm: 056365 Apply 1 Application Both eyes QHS every night at bedtime Instill ~1 cm ribbon into affected eye 09/28/19 24 024 Inactive Artificial Tears (PF) 0.1 %-0.3 % drops in a dropperette RxNorm: 391949 Apply 1-2 Drop(s) Both eyes BID as needed 09/28/19 24 024 Inactive erythromycin 5 mg/gram (0.5 %) eye ointment RxNorm: 502155 Apply 1 Application Both eyes QHS every night at bedtime Instill ~1 cm ribbon into affected eye 09/28/19 24 024 Inactive acetaminophen 500 mg tablet RxNorm: 559464 (MAX APAP:4GM/24HR) Take 1 Tablet(s) Oral TID as needed for pain 09/24/19 24 024 Inactive carvedilol 25 mg tablet RxNorm: 102819 Take 1 Tablet(s) Oral QD 09/08/19 24 No Stop Date Active pregabalin 100 mg capsule RxNorm: 740196 Take 1 Capsule(s) Oral QAM every morning 09/07/19 24 024 Inactive rosuvastatin 40 mg tablet RxNorm: 386233 Take 1 Tablet(s) Oral QPM every evening 07/13/19 24 No Stop Date Active ezetimibe 10 mg tablet RxNorm: 689952 Take 1 Tablet(s) Oral QD 07/13/19 24 No Stop Date Active bisacodyl 10 mg rectal suppository RxNorm: 418162 Insert 1 Suppository Rectal QD as needed 07/13/19 24 No Stop Date Active polyethylene glycol 3350 17 gram/dose oral powder RxNorm: 168973 Take 17 Gram(s) Oral BID as needed mix in 4-8ox water 07/13/19 24 No Stop Date Active ketoconazole 2 % shampoo RxNorm: 400271 Apply 1 Application Topical UD as directed 07/13/19 24 No Stop Date Active Ozempic 1 mg/dose (4 mg/3 mL) subcutaneous pen injector RxNorm: 4236974 Inject 1 Milligram(s) Subcutaneous QW once a week 07/13/19 24 No Stop Date Active Guaifenesin AC 10 mg-100 mg/5 mL oral liquid RxNorm: 016784 Take 10 Milliliter(s) Oral Q4H every four hours as needed 07/13/19 24 No Stop Date Active ammonium lactate 12 % topical cream RxNorm: 919447 Apply 1 Application Topical BID 07/13/19 24 No Stop Date Active hydrocortisone 2.5 % topical cream RxNorm: 888457 Apply 1 Application Topical BID as needed 07/13/19 24 No Stop Date Active rosuvastatin 20 mg sprinkle capsule RxNorm: 8843499 Take 1 Capsule(s) Oral QD 07/13/19 24 No Stop Date Active Vascepa 1 gram capsule RxNorm: 8022548 Take 2 Capsule(s) Oral BID 07/13/19 24 No Stop Date Active venlafaxine ER 75 mg capsule,extended release 24 hr RxNorm: 547568 Take 3 Capsule(s) Oral QD 07/13/19 24 No Stop Date Active aripiprazole 15 mg tablet RxNorm: 802825 Take 1/2 Tablet(s) Oral QD 07/13/19 24 024 Inactive isosorbide mononitrate ER 60 mg tablet,extended release 24 hr RxNorm: 971407 Take 1 Tablet(s) Oral QD 07/13/19 24 024 Inactive Basaglar KwikPen U-100 Insulin 100 unit/mL (3 mL) subcutaneous RxNorm: 2657438 Inject 30U SubQ twice daily 07/07/19 24 024 Inactive Please dispense one month supply. Basaglar KwikPen U-100 Insulin 100 unit/mL (3 mL) subcutaneous RxNorm: 6932789 Inject 30U SubQ twice daily 02 024 Inactive Please dispense one month supply. pregabalin 150 mg capsule RxNorm: 662432 Take 1 Capsule(s) Oral QHS every night at bedtime 07/05/19 024 Inactive pregabalin 150 mg capsule RxNorm: 796669 Take 1 Capsule(s) Oral QHS every night at bedtime 07/05/19 24 024 Inactive polyethylene glycol 3350 17 gram/dose oral powder RxNorm: 997353 Take 1 Packet Oral QD as needed (1 packet = 17g) mix with 4-8oz of liquid 06/15/19 24 024 Inactive bisacodyl 10 mg rectal suppository RxNorm: 515034 Insert one suppository per rectum once daily as needed for constipation 06/15/19 24 024 Inactive bisacodyl 10 mg rectal suppository RxNorm: 493855 Insert one suppository per rectum once daily as needed for constipation 06/15/19 024 Inactive pregabalin 100 mg capsule RxNorm: 115948 Take 1 Capsule(s) Oral QAM every morning 04/27/20 024 Inactive Levemir FlexPen 100 unit/mL (3 mL) solution subcutaneous insulin pen RxNorm: 443723 Inject 30 Unit(s) Subcutaneous BID 04/27/20 23 024 Inactive rosuvastatin 40 mg tablet RxNorm: 693507 Take 1 Tablet(s) Oral QPM every evening 04/16/20 024 Inactive D/C rosuvastatin 20mg venlafaxine ER 75 mg capsule,extended release 24 hr RxNorm: 307945 Take 3 Capsule(s) Oral QD 04/14/20 23 023 Inactive pregabalin 100 mg capsule RxNorm: 400484 Take 1 Capsule(s) Oral QAM every morning [...] meter clotrimazole 1 % topical cream RxNorm: 015719 Take apply topically to abdominal folds twice daily for 14 days 03/12/20 024 Inactive Ozempic 1 mg/dose (4 mg/3 mL) subcutaneous pen injector RxNorm: 4482805 Inject 1 Milligram(s) Subcutaneous QW once a week 03/11/20 23 023 Inactive rosuvastatin 20 mg tablet RxNorm: 575666 Take 1 Tablet(s) Oral QD 02/26/20 23 023 Inactive d/c pravastatin 80mg Ozempic 1 mg/dose (4 mg/3 mL) subcutaneous pen injector RxNorm: 5245375 Inject 1 Milligram(s) Subcutaneous QW once a week 02/20/20 23 023 Inactive pregabalin 150 mg capsule RxNorm: 724436 Take 1 Capsule(s) Oral HS at bed time 02/19/20 23 023 Inactive pregabalin 100 mg capsule RxNorm: 225274 Take 1 Capsule(s) Oral QAM every morning 02/18/20 23 023 Inactive venlafaxine ER 75 mg capsule,extended release 24 hr RxNorm: 410570 Take 3 Capsule(s) Oral QD 02/04/20 23 023 Inactive FreeStyle Chema 2 Sensor kit RxNorm: use as directed 02/04/20 023 Inactive FreeStyle Chema 2 Sensor kit RxNorm: use as directed 02/04/20 23 024 Inactive fluconazole 150 mg tablet RxNorm: 803452 Take 1 Tablet(s) Oral on day 3 and on day 6 02/03/20 23 024 Inactive chlorthalidone 25 mg tablet RxNorm: 543226 Take 1 Tablet(s) Oral QAM every morning 02/03/20 23 No Stop Date Active venlafaxine ER 150 mg capsule,extended release 24 hr RxNorm: 167104 Take 1 Capsule(s) Oral QD 02/03/20 023 Inactive acetaminophen 500 mg tablet RxNorm: 954087 1 TABLET ORALLY 3 TIMES DAILY (MAX APAP:4GM/24HR) 12/15/19 023 Inactive clotrimazole 1 % topical cream RxNorm: 865382 apply 1g topically to top of feet and in between toes BID 12/09/19 23 023 Inactive potassium chloride ER 20 mEq tablet,extended release RxNorm: 613716 Take 1 Tablet(s) Oral BID 12/09/19 024 Inactive d/c 20mEq once daily (sent from hospital) nystatin 100,000 unit/gram topical powder RxNorm: 377945 APPLY TO AFFECTED AREAS TOPICALLY 2 TIMES DAILY 11/21/19 024 Inactive Nystop 100,000 unit/gram topical powder RxNorm: 394413 Apply to abd folds, under breasts and L side of groin Topical BID x 14 days, then BID PRN 11/20/19 023 Inactive dx: yeast dermatitis Bengay Ultra Strength 4 %-30 %-10 % topical cream RxNorm: 660539 Apply 1 Gram(s) Topical QID PRN to feet and legs for neuropathic pain 11/11/19 024 Inactive clotrimazole 1 % topical cream RxNorm: 304983 Apply 1/2 Gram(s) Topical BID Apply to affected areas of groin, periarea, and abdominal topically 2 times daily 11/10/19 023 Inactive hydrocortisone 2.5 % topical cream RxNorm: 105099 Apply 1/2 Gram(s) Topical BID as needed 11/10/19 024 Inactive Humulin R U-500 (Concentrated) Insulin 500 unit/mL subcutaneous soln RxNorm: 194711 Inject 100 Unit(s) Subcutaneous TID 10/07/19 024 Inactive Levemir FlexPen 100 unit/mL (3 mL) solution subcutaneous insulin pen RxNorm: 424014 Inject 30 Unit(s) Subcutaneous BID 10/07/19 023 Inactive Ozempic 0.25 mg or 0.5 mg (2 mg/3 mL) subcutaneous pen injector RxNorm: 2839682 Inject 1/2 Milligram(s) Subcutaneous QW once a week 10/07/19 024 Inactive aripiprazole 15 mg tablet RxNorm: 327307 1/2 TAB (7.5MG) ORALLY DAILY (DX:MAJOR DEPRESSIVE DISORDER) 09/23/19 23 023 Inactive Lancets,Thin 28 gauge RxNorm: Use 1 as directed QID 09/15/19 23 024 Inactive Accu-Chek Guide test strips RxNorm: Use 1 Test Strip QID 09/15/19 23 023 Inactive ok to substitute with any covered alternative test strip torsemide 20 mg tablet RxNorm: 997767 Take 1 Tablet(s) Oral BID 09/09/19 024 Inactive d/c once daily dosing carvedilol 25 mg tablet RxNorm: 560627 Take 1 Tablet(s) Oral QD 08/25/19 024 Inactive pregabalin 150 mg capsule RxNorm: 900657 1 Capsule(s) Oral HS at bed time 08/18/19 23 023 Inactive pregabalin 100 mg capsule RxNorm: 817841 1 Capsule(s) Oral QAM every morning 08/18/19 23 023 Inactive carvedilol 25 mg tablet RxNorm: 222219 1 Tablet(s) Oral QD 07/28/19 023 Inactive lisinopril 20 mg tablet RxNorm: 554629 Give 1 Tablet(s) Oral QD 07/28/19 23 023 Inactive Lyrica 150 mg capsule RxNorm: 246604 Take 1 Capsule(s) Oral QHS every night at bedtime 07/19/19 023 Inactive d/c 100mg dose Diflucan 150 mg tablet RxNorm: 547230 Take 1 Tablet(s) Oral QD repeat on day 3 and 6 07/19/19 23 023 Inactive pregabalin 100 mg capsule RxNorm: 521346 Take 1 Capsule(s) Oral QAM every morning 07/19/19 23 023 Inactive gatifloxacin 0.5 % eye drops RxNorm: 747308 Instill 1 Drop(s) as directed TID Instill 1 drop in to affected eye(s) starting 1 day prior to surgery and continue until gone (do not exceed 4 weeks). 07/13/19 23 023 Inactive carvedilol 25 mg tablet RxNorm: 501226 2 Tablet(s) Oral BID 07/13/19 023 Inactive Humulin R Regular U-100 Insulin 100 unit/mL injection solution RxNorm: 007029 85 Unit(s) Injection TID 07/13/19 023 Inactive ketorolac 0.5 % eye drops RxNorm: 721882 Instill 1 Drop(s) as directed QID Instill 1 drop into affected eye(s) 4 times daily starting 1 day prior to surgery and continue until gone (do not exceed 4 weeks). 07/13/19 023 Inactive Diflucan 150 mg tablet RxNorm: 464921 Take 1 Tablet(s) Oral QD repeat on day 3 and 6 06/30/19 23 023 Inactive Accu-Chek Guide test strips RxNorm: Use 1 Test Strip QID Use 1 test strip to monitor blood glucose 4 times daily and as needed. Dx:E11.42. 06/23/19 23 023 Inactive ok to substitute with any covered alternative test strip dextromethorphan-gu aifenesin 10 mg-100 mg/5 mL oral liquid RxNorm: 724266 Take 10 Milliliter(s) Oral every 4 hours as needed for cough 06/19/19 23 023 Inactive dextromethorphan-gu aifenesin 10 mg-100 mg/5 mL oral liquid RxNorm: 815994 Take 10 Milliliter(s) Oral every 4 hours as needed for cough 06/19/19 23 023 Inactive Lyrica 150 mg capsule RxNorm: 267067 Take 1 Capsule(s) Oral QHS every night at bedtime 06/18/19 23 023 Inactive d/c 100mg dose aripiprazole 15 mg tablet RxNorm: 690541 1/2 TAB (7.5MG) ORALLY DAILY (DX:MAJOR DEPRESSIVE DISORDER) 06/05/19 23 023 Inactive pregabalin 100 mg capsule RxNorm: 097591 1 Capsule(s) Oral QAM every morning 06/02/19 023 Inactive Banophen 50 mg capsule RxNorm: 8174859 Take 1 Capsule(s) Oral Q6H every 6 hours as needed 05/19/19 No Stop Date Active Novolog Flexpen U-100 Insulin aspart 100 unit/mL (3 mL) subcutaneous RxNorm: 5690380 Inject 10 Unit(s) Subcutaneous QHS every night at bedtime with nighttime snack 04/08/20 022 Inactive Novolog Flexpen U-100 Insulin aspart 100 unit/mL (3 mL) subcutaneous RxNorm: 3401158 Inject 42 Unit(s) Subcutaneous TID in addition to sliding scale 04/08/20 Inactive d/c 36u albuterol sulfate HFA 90 mcg/actuation aerosol inhaler RxNorm: 5526167 Take 2 Puff(s) Inhalation Q4H every four hours as needed as needed for SOB, cough, or wheezing 04/07/20 030 Active Banophen 50 mg capsule RxNorm: 3880250 Take 1 Capsule(s) Oral Q6H every 6 hours as needed 04/06/20 023 Inactive diphenhydramine 50 mg tablet RxNorm: 4324180 Take 1 Tablet(s) Oral Q6H every 6 hours as needed 04/06/20 022 Inactive diphenhydramine 50 mg tablet RxNorm: 9598671 1 Tablet(s) Oral Q6H every 6 hours as needed 04/06/20 022 Inactive Abilify 15 mg tablet RxNorm: 702906 1/2 Tablet(s) Oral QD 03/10/20 023 Inactive Shingrix (PF) 50 mcg/0.5 mL intramuscular suspension, kit RxNorm: 2394044 Administer 1/2 Milliliter(s) Intramuscular QD one time shingrix step 2 ( step 1 given 11/04/21) WITH needle - Nursing please administer upon arrival and once administered post a bridge message with date of administration, director of personnel, expiration date, and lot# so we can update [facility] 02/18/20 22 022 Inactive dispense with needle Shingrix (PF) 50 mcg/0.5 mL intramuscular suspension, kit RxNorm: 7803848 Administer 1/2 Milliliter(s) Intramuscular QD one time shingrix step 2 ( step 1 given 11/04/21) WITH needle - Nursing please administer upon arrival and once administered post a bridge message with date of administration, director of personnel, expiration date, and lot# so we can update [facility] 02/18/20 22 022 Inactive dispense with needle polyethylene glycol 3350 17 gram/dose oral powder RxNorm: 445232 Take 17=1 capful Gram(s) Oral QD mix with 4-8oz of liquid 01/08/20 22 023 Inactive take this in addition to BID prn order Lyrica 100 mg capsule RxNorm: 005637 Take 1 Capsule(s) Oral QAM every morning 01/08/20 22 022 Inactive d/c 50mg dose acetaminophen 500 mg tablet RxNorm: 165447 Take 1 Tablet(s) Oral TID 01/08/20 22 022 Inactive d/c PRN order Lyrica 150 mg capsule RxNorm: 791960 Take 1 Capsule(s) Oral QHS every night at bedtime 01/08/20 22 023 Inactive d/c 100mg dose Abilify 5 mg tablet RxNorm: 698398 Take 1 Tablet(s) Oral QD take 1 tab po QD #30 refill 5 dx: MDD 12/12/19 22 022 Inactive Abilify 5 mg tablet RxNorm: 712777 Take 1 Tablet(s) Oral QD take 1 tab po QD #30 refill 5 dx: MDD 12/12/19 22 022 Inactive Novolog Flexpen U-100 Insulin aspart 100 unit/mL (3 mL) subcutaneous RxNorm: 7556349 Inject 42 Unit(s) Subcutaneous TID in addition to sliding scale 12/10/19 22 022 Inactive d/c 36u chlorthalidone 25 mg tablet RxNorm: 089807 Take 1 Tablet(s) Oral QAM every morning 12/10/19 22 023 Inactive pregabalin 50 mg capsule RxNorm: 775858 Take 1 Capsule(s) Oral QAM every morning 11/12/19 22 022 Inactive tetanus-diphtheria toxoids-Td 2 Lf unit-2 Lf unit/0.5 mL IM suspension RxNorm: 139 Take 0.5 Miscellaneous Intramuscular 11/12/19 22 022 Inactive need tdap - nursing to administer upon arrival pregabalin 50 mg capsule RxNorm: 340200 Take 1 Capsule(s) Oral QAM every morning 10/16/19 22 022 Inactive pregabalin 50 mg capsule RxNorm: 878511 Take 1 Capsule(s) Oral QAM every morning 10/16/19 22 022 Inactive pregabalin 50 mg capsule RxNorm: 573418 1 Capsule(s) Oral QAM every morning 10/15/19 22 022 Inactive Shingrix (PF) 50 mcg/0.5 mL intramuscular suspension, kit RxNorm: 2753442 Administer 1/2 Milliliter(s) Intramuscular one time Nursing please administer upon arrival and once administered post a bridge message with date of administration, director of personnel, expiration date, and lot# so we can update [facility]. 10/09/19 22 022 Inactive shingrix step 1 Shingrix (PF) 50 mcg/0.5 mL intramuscular suspension, kit RxNorm: 0278852 Administer 1/2 Milliliter(s) Intramuscular one time Nursing please administer upon arrival and once administered post a bridge message with date of administration, director of personnel, expiration date, and lot# so we can update [facility]. 10/09/19 22 022 Inactive shingrix step 1 cholecalciferol (vitamin D3) 1,250 mcg (50,000 unit) capsule RxNorm: 537988 Take 1 Capsule(s) Oral QW once a [...] aspart 100 unit/mL (3 mL) subcutaneous RxNorm: 4426070 Inject 10 Unit(s) Subcutaneous QHS every night at bedtime with nighttime snack 10/08/19 22 Inactive Shingrix (PF) 50 mcg/0.5 mL intramuscular suspension, kit RxNorm: 0470800 ADMINISTER 2-DOSE SERIES PER CDC GUIDELINES 10/08/19 22 Active Shingrix (PF) 50 mcg/0.5 mL intramuscular suspension, kit RxNorm: 9217494 ADMINISTER 2-DOSE SERIES PER CDC GUIDELINES 10/08/19 Inactive Novolog Flexpen U-100 Insulin aspart 100 unit/mL (3 mL) subcutaneous RxNorm: 2515520 Inject 36 Unit(s) Subcutaneous TID in addition to sliding scale 10/08/19 Inactive Novofine Autocover 30 gauge x 1/3 needle RxNorm: Use 1 Miscellaneous UD as directed Use 1 needle as directed to administer insulin 5 times a day Dx:E11.42. 10/03/19 Inactive ok to substitute with any covered alternative pen needle benzoyl peroxide 10 % topical cleanser RxNorm: 918561 Apply 1 Application Topical QD apply to face, wash rinse and dry once daily (may change to QOD if drying) 08/19/19 022 Inactive (%covered by insurance) #60ml refill 11 dx: acne benzoyl peroxide 10 % topical cleanser RxNorm: 902132 Apply 1 Application Topical QD apply to face, wash rinse and dry once daily (may change to QOD if drying) 08/19/19 22 022 Inactive (%covered by insurance) #60ml refill 11 dx: acne benzoyl peroxide 10 % topical cleanser RxNorm: 314025 Apply 1 Application Topical QD apply to face, wash rinse and dry once daily (may change to QOD if drying) 08/19/19 22 022 Inactive (%covered by insurance) #60ml refill 11 dx: acne Lyrica 50 mg capsule RxNorm: 210888 Take 1 Capsule(s) Oral QAM every morning Take 1 capsule by mouth once daily 08/19/19 22 022 Inactive benzoyl peroxide 10 % topical cleanser RxNorm: 230832 Apply 1 Application Topical QD apply to face, wash rinse and dry once daily (may change to QOD if drying) 08/19/19 22 Inactive (%covered by insurance) #60ml refill 11 dx: acne Lyrica 100 mg capsule RxNorm: 339483 Take 1 Capsule(s) Oral QHS every night at bedtime Take 1 capsule by mouth once daily at bedtime 08/19/19 022 Inactive Lyrica 100 mg capsule RxNorm: 560835 Take 1 Capsule(s) Oral QHS every night at bedtime Take 1 capsule by mouth once daily at bedtime 08/16/19 22 Inactive Lyrica 50 mg capsule RxNorm: 599878 Take 1 Capsule(s) Oral QAM every morning Take 1 capsule by mouth once daily 08/16/19 22 Inactive Levemir FlexTouch U-100 Insulin 100 unit/mL (3 mL) subcutaneous pen RxNorm: 091391 Inject 86 Unit(s) Subcutaneous BID 08/05/19 22 022 Inactive d/c 83units BID Lyrica 100 mg capsule RxNorm: 784688 Take 1 Capsule(s) Oral QHS every night at bedtime Take 1 capsule by mouth once daily at bedtime 07/14/19 22 022 Inactive Lyrica 50 mg capsule RxNorm: 276025 Take 1 Capsule(s) Oral QAM every morning Take 1 capsule by mouth once daily 07/14/19 22 022 Inactive Levemir FlexTouch U-100 Insulin 100 unit/mL (3 mL) subcutaneous pen RxNorm: 351166 Inject 83 Unit(s) Subcutaneous BID 07/08/19 22 [...] test strip hydralazine 50 mg tablet RxNorm: 981566 Take 1 Tablet(s) Oral QID 05/05/20 21 022 Inactive venlafaxine ER 225 mg tablet,extended release 24 hr RxNorm: 118390 Take 1 Tablet(s) Oral QD 05/05/20 21 021 Inactive venlafaxine ER 225 mg tablet,extended release 24 hr RxNorm: 618761 Take 1 Tablet(s) Oral QD 05/05/20 21 022 Inactive isosorbide mononitrate ER 30 mg tablet,extended release 24 hr RxNorm: 713628 Take 1 Tablet(s) Oral QD 05/05/20 21 024 Inactive hydralazine 50 mg tablet RxNorm: 328425 Take 1 Tablet(s) Oral QID 05/05/20 21 021 Inactive aspirin 81 mg tablet,delayed release RxNorm: 184349 Take 1 Tablet(s) Oral QD 03/31/20 022 Inactive Vitamin D2 1,250 mcg (50,000 unit) capsule RxNorm: 2566139 Take 1 Capsule(s) Oral QW once a week x 12 weeks 03/31/20 022 Inactive Vitamin D2 1,250 mcg (50,000 unit) capsule RxNorm: 2313312 Take 1 Capsule(s) Oral QW once a week 03/31/20 021 Inactive Zetia 10 mg tablet RxNorm: 694785 Take 1 Tablet(s) Oral QD 03/31/20 024 Inactive Zetia 10 mg tablet RxNorm: 874551 Take 1 Tablet(s) Oral QD 03/31/20 021 Inactive hydralazine 25 mg tablet RxNorm: 476902 Take 1 Tablet(s) Oral QID 03/31/20 21 021 Inactive hydralazine 25 mg tablet RxNorm: 896616 Take 1 Tablet(s) Oral QID 03/31/20 021 Inactive hydralazine 10 mg tablet RxNorm: 851844 Take 1 Tablet(s) Oral QID 03/03/20 021 Inactive cephalexin 500 mg tablet RxNorm: 803055 Take 1 Tablet(s) Oral QID 02/27/20 021 Inactive cephalexin 500 mg tablet RxNorm: 959979 Take 1 Tablet(s) Oral QID 02/27/20 021 Inactive lisinopril 40 mg tablet RxNorm: 484201 Take 1 Tablet(s) Oral QD 02/11/20 21 023 Inactive Eliquis 5 mg tablet RxNorm: 6673171 Take 1 Tablet(s) Oral BID 01/05/20 21 022 Inactive Eliquis 5 mg tablet RxNorm: 0876413 Take 2 Tablet(s) Oral QD 01/01/20 21 021 Inactive Lyrica 50 mg capsule RxNorm: 146736 Take 1 Capsule(s) Oral QAM every morning 12/24/19 21 021 Inactive Lyrica 100 mg capsule RxNorm: 021469 Take 1 Capsule(s) Oral QHS every night at bedtime 12/24/19 21 021 Inactive clotrimazole 1 % topical cream RxNorm: 361180 Apply to right foot and toes Topical BID 12/04/19 21 023 Inactive metoprolol succinate ER 200 mg tablet,extended release 24 hr RxNorm: 037450 Take 1 Tablet(s) Oral QD 12/04/19 21 023 Inactive ciprofloxacin 500 mg tablet RxNorm: 526298 Take 1 Tablet(s) Oral QD 11/30/19 21 021 Inactive DX ofloxacin otic drops Accu-Chek Guide test strips RxNorm: USE 1 TO CHECK GLUCOSE 4 TIMES DAILY AND NEEDED 11/15/19 21 023 Inactive Blood Glucose Test strips RxNorm: Use 1 Test Strip QID at PRN 11/05/19 21 023 Inactive E11.42 lisinopril 30 mg tablet RxNorm: 471272 Take 1 Tablet(s) Oral QD 10/30/19 021 Inactive lisinopril 20 mg tablet RxNorm: 463886 Take 1 Tablet(s) Oral QD 10/23/19 21 021 Inactive lisinopril 20 mg tablet RxNorm: 778171 Take 1 Tablet(s) Oral QD 10/23/19 21 021 Inactive lisinopril 10 mg tablet RxNorm: 700987 Take 1 Tablet(s) Oral QD 10/02/19 21 021 Inactive icosapent ethyl 1 gram capsule RxNorm: 6271038 Take 2 Capsule(s) (2 gm) Oral BID with meals 09/12/19 21 024 Inactive Okay to dispense one 2gm tab if you have that available. icosapent ethyl 1 gram capsule RxNorm: 6089547 Take 2 Capsule(s) Oral BID 09/12/19 21 021 Inactive Okay to dispense one 2gm tab if you have that available. amlodipine 10 mg tablet RxNorm: 459928 Take 1 Tablet(s) Oral QD 09/04/19 022 Inactive aspirin 81 mg tablet,delayed release RxNorm: 494628 Take 1 Tablet(s) Oral QD 09/04/19 Inactive Levemir FlexTouch U-100 Insulin 100 unit/mL (3 mL) subcutaneous pen RxNorm: 165282 Inject 150 Unit(s) Subcutaneous BID 09/04/19 022 Inactive venlafaxine ER 150 mg tablet,extended release 24 hr RxNorm: 426229 Take 1 Tablet(s) Oral QD 09/04/19 21 Inactive clotrimazole-betame thasone 1 %-0.05 % topical cream RxNorm: 510314 Apply to rash on red area on left abdomen/chest Topical BID 08/10/19 Inactive amlodipine 5 mg tablet RxNorm: 718906 Take 1 Tablet(s) Oral QD 07/31/19 Inactive cephalexin 500 mg tablet RxNorm: 483375 Take 1 Tablet(s) Oral BID BID - Twice Daily 07/31/19 Inactive Start 08/01/20 pantoprazole 40 mg tablet,delayed release RxNorm: 440535 Take 1 Tablet(s) Oral QAM every morning 07/08/19 022 Inactive senna 8.6 mg tablet RxNorm: 340076 Take 1 Tablet(s) Oral QD 07/08/19 022 Inactive carbamazepine 200 mg tablet RxNorm: 665549 Take 1 Tablet(s) Oral BID 07/08/19 022 Inactive clopidogrel 75 mg tablet RxNorm: 667423 Take 1 Tablet(s) Oral QD 07/08/19 021 Inactive Blood Glucose Test strips RxNorm: Use 1 Test Strip QID at PRN 07/08/19 21 021 Inactive E11.42 Novolog Flexpen U-100 Insulin aspart 100 unit/mL (3 mL) subcutaneous RxNorm: 3568643 Administer per sliding scale Milliliter(s) Subcutaneous TID 151-200: 10 u; 201-250: 20 u; 251-300: 30 u; 301-350: 40 u; 351-400: 50 u. 07/08/19 022 Inactive lisinopril 5 mg tablet RxNorm: 332623 Take 1 Tablet(s) Oral QD 07/08/19 021 Inactive Novolog Flexpen U-100 Insulin aspart 100 unit/mL (3 mL) subcutaneous RxNorm: 4550286 Inject 85 Unit(s) Subcutaneous TID 07/08/19 022 Inactive pravastatin 80 mg tablet RxNorm: 010502 Take 1 Tablet(s) Oral QHS every night at bedtime 07/08/19 023 Inactive clotrimazole 1 % topical cream RxNorm: 057338 Apply to bilateral groin areas Topical BID 07/08/19 022 Inactive metoprolol succinate ER 200 mg tablet,extended release 24 hr RxNorm: 810906 Take 1 Tablet(s) Oral QD 07/08/19 021 Inactive Vitamin D3 25 mcg (1,000 unit) tablet RxNorm: 029973 Take 1 Tablet(s) Oral QD 07/08/19 021 Inactive isosorbide dinitrate 30 mg tablet RxNorm: 098936 Take 1 Tablet(s) Oral QD 07/08/19 021 Inactive Levemir FlexTouch U-100 Insulin 100 unit/mL (3 mL) subcutaneous pen RxNorm: 886036 Inject 140 Unit(s) Subcutaneous BID 07/08/19 021 Inactive torsemide 20 mg tablet RxNorm: 235522 Take 1 Tablet(s) Oral QD 07/08/19 023 Inactive venlafaxine 75 mg tablet RxNorm: 814329 Take 1 Tablet(s) Oral QD 07/08/19 021 Inactive acetaminophen 500 mg tablet RxNorm: 634957 Take 1 Tablet(s) Oral TID as needed for headache 06/18/19 021 Inactive acetaminophen 500 mg tablet RxNorm: Take 1 Tablet(s) Oral TID as needed for headache 06/18/19 21 021 Inactive Lyrica 100 mg capsule RxNorm: 084369 Take 1 Capsule(s) Oral QHS every night at bedtime 06/11/19 21 021 Inactive Lyrica 50 mg capsule RxNorm: 873489 Take 1 Capsule(s) Oral QAM every morning 06/10/19 21 021 Inactive hydrocortisone 2.5 % topical cream RxNorm: 559447 Apply to bilateral groin creases Topical BID 05/15/20 20 021 Inactive clotrimazole 1 % topical cream RxNorm: 666635 Apply to bilateral groin areas Topical BID 05/15/20 20 021 Inactive Lyrica 50 mg capsule RxNorm: 213671 Take 1 Capsule(s) Oral QAM every morning 05/14/20 20 020 Inactive Lyrica 100 mg capsule RxNorm: 298045 Take 1 Capsule(s) Oral QHS every night [...] Inactive Nystop 100,000 unit/gram topical powder RxNorm: 547072 Apply to abd folds, under breasts and L side of groin Topical BID x 14 days, then BID PRN 04/08/20 20 020 Inactive dx: yeast dermatitis Lyrica 100 mg capsule RxNorm: 010839 Take 1 Capsule(s) Oral QHS every night at bedtime 03/13/20 20 020 Inactive Lyrica 50 mg capsule RxNorm: 519852 Take 1 Capsule(s) Oral QAM every morning 03/13/20 20 Inactive ketoconazole 2 % shampoo RxNorm: 951552 Apply Topical two times a week with showers 03/11/20 20 Inactive cholecalciferol (vitamin D3) 50 mcg (2,000 unit) tablet RxNorm: 079807 Take 1 Tablet(s) Oral QD 03/11/20 20 021 Inactive Zetia 10 mg tablet RxNorm: 118822 Take 1 Tablet(s) Oral QD 03/07/20 20 021 Inactive Zetia 10 mg tablet RxNorm: 334780 Take 1 Tablet(s) Oral QD 03/07/20 20 Inactive Lyrica 50 mg capsule RxNorm: 621346 Take 1 Capsule(s) Oral QAM every morning 02/15/20 20 Inactive Lyrica 100 mg capsule RxNorm: 061498 Take 1 Capsule(s) Oral QHS every night at bedtime 02/15/20 20 Inactive Lyrica 100 mg capsule RxNorm: 585293 Take 1 Capsule(s) Oral QHS every night at bedtime 02/15/20 20 Inactive Lyrica 50 mg capsule RxNorm: 293014 Take 1 Capsule(s) Oral QAM every morning 02/15/20 20 Inactive metoprolol succinate ER 200 mg tablet,extended release 24 hr RxNorm: 499037 Take 1 Tablet(s) Oral QD 08/12/19 23 Active loperamide 2 mg capsule RxNorm: 958058 Take 1 Capsule(s) Oral QID as needed 06/12/19 22 Active hydralazine 50 mg tablet RxNorm: 279354 Take 1 Tablet(s) Oral QID 08/12/19 23 Active venlafaxine ER 75 mg capsule,extended release 24 hr RxNorm: 525356 Take 3 Capsule(s) Oral QD 06/12/19 22 023 Inactive polyethylene glycol 3350 17 gram/dose oral powder RxNorm: 761531 Take 17=1 capful Gram(s) Oral BID as needed mix with 4-8oz of liquid 06/12/19 22 024 Inactive icosapent ethyl 1 gram capsule RxNorm: 5816784 Take 2 Capsule(s) (2 gm) Oral BID with meals 10/07/19 23 023 Inactive Okay to dispense one 2gm tab if you have that available. Levemir FlexTouch U-100 Insulin 100 unit/mL (3 mL) subcutaneous pen RxNorm: 466922 Inject 80 Unit(s) Subcutaneous BID 07/14/19 23 023 Inactive Novolog Flexpen U-100 Insulin aspart 100 unit/mL (3 mL) subcutaneous RxNorm: 6011199 Insert 30 Unit(s) Subcutaneous TID with meals [...] Summary Completed 02/02/2024 Appointment: Brian Munson WPtel: [address] [place], [place] [id number] F/U 01/11/2024 Appointment: Sandra Clarktel: [address] [facility] [address] [id number] Telehealth Psych Follow Up 12/09 Appointment: Tapan Shirley WPtel: [address] [facility] [address] [id number] [place] TCM 10/26/2022 Referral: [facility] WPtel: [phone], [address] [id number] [place] Referral Records Received 09/21/2022 Appointment: Tapan Shirley WPtel: [address] [facility] 300 [id number] [place] F/U 08/11/2022 Appointment: Tapan Shirley WPtel: [address] [facility] 300 [id number] [place] F/U 07/14/2022 Appointment: Tapan Shirley WPtel: [address] [facility] 300 [id number] [place] F/U 02/10/2022 Referral: [facility] WPtel: [phone] [id number] [place] Referral Completed 05/28/2021 Referral: General Cardiology [...] Sister Jyotsna involved in his care cell# [phone] Guardian: Giulia (tapan met in person 09/01/21), now has Lexii (same group as giulia)AWV 9..2024. Lab Schedule: /September*September (CBC with diff, CMP, [...] Martines note from 11.08.2023 at [facility] (follow up 6 months)Colon & Rectal Surgery visit scheduled for 03/08/24 with Matilde Pérez PA-C. 02/08/2024
--- OUTSIDE RECORDS SUMMARY | 2024-02-19 14:18 | XMS_ITS | CCD ---
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 Phototypesetting Equipment Monitor Name Role Phone [place] [facility] MACHINE OPERATOR-CHarrison Primary Care Provider Leona vailable Arpit [facility] MACHINE OPERATOR-C, [facility] Chronic Care Management U navailable Summary Purpose DataExchange Insurance Providers Payer name Policy type / Coverage type Covered democrat ID Effective Begin Date Effective End Date Medicare [place] Medicare Part B [id number] Unknown Unknown [place] Medicare Part B [id number] Unknown Unknown Family history Sister Brittany Suggs [...] Longterm 09/03/[address]: 3683150 Non-Smoker / No History of Smoking 09/02/[address]: 519934919 No Alcohol Consum ption 09/02/2020 Allergies, Adverse Reactions, Alerts Substance Reaction Codes Entered Date Inactivated Date Status * NO KNOWN FOOD ALLERGIES Unknown 07/13/2023 No Inactive Date Active LISINOPRIL RxNorm: 87917 02/12/2020 No Inactive Da te Active Metformin [...] E78. 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, angina presence unspecified ICD-10: I25.10 ICD-9: [...] Fill Instructions pregabalin 100 mg capsule RxNorm: 876923 Take 1 Capsule(s) Oral QAM every morning 02/07/20 24 024 Active isosorbide mononitrate ER 60 mg tablet,extended release 24 hr RxNorm: 232763 Take 1 Tablet(s) Oral QD 02/01/20 24 025 Active aripiprazole 15 mg tablet RxNorm: 213467 Take 1/2 Tablet(s) Oral QD 02/01/20 24 025 Active torsemide 20 mg tablet RxNorm: 682554 1 TAB ORALLY DAILY (DX: EDEMA) 01/27/20 24 No Stop Date Active potassium chloride ER 20 mEq tablet,extended release(part/cryst) RxNorm: 5442184 2 TABS (40MEQ) ORALLY TWICE DAILY (DX: HYPOKALEMIA) 01/27/20 24 No Stop Date Active cephalexin 500 mg capsule RxNorm: 958441 Take 1 Capsule(s) Oral QID 12/17/19 24 024 Inactive cephalexin 500 mg capsule RxNorm: 054761 Take 1 Capsule(s) Oral QID 12/17/19 24 024 Inactive acetaminophen 500 mg tablet RxNorm: 376784 (MAX APAP:4GM/24HR) Take 1 Tablet(s) Oral TID as needed for pain 12/10/19 24 024 Active torsemide 20 mg tablet RxNorm: 375962 Take 1 Tablet(s) Oral QD 10/26/19 24 024 Inactive potassium chloride ER 20 mEq tablet,extended release RxNorm: 330317 Take 2 Tablet(s) Oral BID 10/26/19 24 025 Active torsemide 20 mg tablet RxNorm: 381442 Take 1 Tablet(s) Oral QD 10/26/19 24 024 Inactive potassium chloride ER 20 mEq tablet,extended release RxNorm: 386242 Take 2 Tablet(s) Oral BID 10/26/19 24 024 Inactive Artificial Tears (PF) 0.1 %-0.3 % drops in a dropperette RxNorm: 503521 Apply 1-2 Drop(s) Both eyes BID as needed 09/28/19 24 025 Active erythromycin 5 mg/gram (0.5 %) eye ointment RxNorm: 958162 Apply 1 Application Both eyes QHS every night at bedtime Instill ~1 cm ribbon into affected eye 09/28/19 24 Inactive Artificial Tears (PF) 0.1 %-0.3 % drops in a dropperette RxNorm: 048264 Apply 1-2 Drop(s) Both eyes BID as needed 09/28/19 24 024 Inactive erythromycin 5 mg/gram (0.5 %) eye ointment RxNorm: 055798 Apply 1 Application Both eyes QHS every night at bedtime Instill ~1 cm ribbon into affected eye 09/28/19 24 024 Inactive acetaminophen 500 mg tablet RxNorm: 248173 (MAX APAP:4GM/24HR) Take 1 Tablet(s) Oral TID as needed for pain 09/24/19 24 024 Inactive carvedilol 25 mg tablet RxNorm: 938853 Take 1 Tablet(s) Oral QD 09/08/19 24 No Stop Date Active pregabalin 100 mg capsule RxNorm: 521645 Take 1 Capsule(s) Oral QAM every morning 09/07/19 24 024 Inactive rosuvastatin 40 mg tablet RxNorm: 173781 Take 1 Tablet(s) Oral QPM every evening 07/13/19 24 No Stop Date Active ezetimibe 10 mg tablet RxNorm: 750857 Take 1 Tablet(s) Oral QD 07/13/19 24 No Stop Date Active bisacodyl 10 mg rectal suppository RxNorm: 694359 Insert 1 Suppository Rectal QD as needed 07/13/19 24 No Stop Date Active polyethylene glycol 3350 17 gram/dose oral powder RxNorm: 829874 Take 17 Gram(s) Oral BID as needed mix in 4-8ox water 07/13/19 24 No Stop Date Active ketoconazole 2 % shampoo RxNorm: 449137 Apply 1 Application Topical UD as directed 07/13/19 24 No Stop Date Active Ozempic 1 mg/dose (4 mg/3 mL) subcutaneous pen injector RxNorm: 6501739 Inject 1 Milligram(s) Subcutaneous QW once a week 07/13/19 24 No Stop Date Active Guaifenesin AC 10 mg-100 mg/5 mL oral liquid RxNorm: 768386 Take 10 Milliliter(s) Oral Q4H every four hours as needed 07/13/19 24 No Stop Date Active ammonium lactate 12 % topical cream RxNorm: 719186 Apply 1 Application Topical BID 07/13/19 24 No Stop Date Active hydrocortisone 2.5 % topical cream RxNorm: 463663 Apply 1 Application Topical BID as needed 07/13/19 24 No Stop Date Active rosuvastatin 20 mg sprinkle capsule RxNorm: 1545551 Take 1 Capsule(s) Oral QD 07/13/19 24 No Stop Date Active Vascepa 1 gram capsule RxNorm: 5705060 Take 2 Capsule(s) Oral BID 07/13/19 24 No Stop Date Active venlafaxine ER 75 mg capsule,extended release 24 hr RxNorm: 973910 Take 3 Capsule(s) Oral QD 07/13/19 24 No Stop Date Active aripiprazole 15 mg tablet RxNorm: 891706 Take 1/2 Tablet(s) Oral QD 07/13/19 24 024 Inactive isosorbide mononitrate ER 60 mg tablet,extended release 24 hr RxNorm: 494044 Take 1 Tablet(s) Oral QD 07/13/19 24 024 Inactive Basaglar KwikPen U-100 Insulin 100 unit/mL (3 mL) subcutaneous RxNorm: 7168114 Inject 30U SubQ twice daily 07/07/19 24 024 Inactive Please dispense one month supply. Basaglar KwikPen U-100 Insulin 100 unit/mL (3 mL) subcutaneous RxNorm: 3854109 Inject 30U SubQ twice daily 07/07/19 24 024 Inactive Please dispense one month supply. pregabalin 150 mg capsule RxNorm: 643519 Take 1 Capsule(s) Oral QHS every night at bedtime 07/05/19 24 024 Inactive pregabalin 150 mg capsule RxNorm: 250603 Take 1 Capsule(s) Oral QHS every night at bedtime 07/05/19 24 024 Inactive polyethylene glycol 3350 17 gram/dose oral powder RxNorm: 547384 Take 1 Packet Oral QD as needed (1 packet = 17g) mix with 4-8oz of liquid 06/15/19 24 024 Inactive bisacodyl 10 mg rectal suppository RxNorm: 386853 Insert one suppository per rectum once daily as needed for constipation 06/15/19 024 Inactive bisacodyl 10 mg rectal suppository RxNorm: 129004 Insert one suppository per rectum once daily as needed for constipation 06/15/19 024 Inactive pregabalin 100 mg capsule RxNorm: 543895 Take 1 Capsule(s) Oral QAM every morning 04/27/20 024 Inactive Levemir FlexPen 100 unit/mL (3 mL) solution subcutaneous insulin pen RxNorm: 289194 Inject 30 Unit(s) Subcutaneous BID 04/27/20 024 Inactive rosuvastatin 40 mg tablet RxNorm: 615249 Take 1 Tablet(s) Oral QPM every evening 04/16/20 024 Inactive D/C rosuvastatin 20mg venlafaxine ER 75 mg capsule,extended release 24 hr RxNorm: 440454 Take 3 Capsule(s) Oral QD 04/14/20 23 023 Inactive pregabalin 100 mg capsule RxNorm: 864130 Take 1 Capsule(s) Oral QAM every morning [...] meter clotrimazole 1 % topical cream RxNorm: 520492 Take apply topically to abdominal folds twice daily for 14 days 03/12/20 23 024 Inactive Ozempic 1 mg/dose (4 mg/3 mL) subcutaneous pen injector RxNorm: 1779447 Inject 1 Milligram(s) Subcutaneous QW once a week 03/11/20 23 023 Inactive rosuvastatin 20 mg tablet RxNorm: 493316 Take 1 Tablet(s) Oral QD 02/26/20 23 023 Inactive d/c pravastatin 80mg Ozempic 1 mg/dose (4 mg/3 mL) subcutaneous pen injector RxNorm: 5706106 Inject 1 Milligram(s) Subcutaneous QW once a week 02/20/20 23 023 Inactive pregabalin 150 mg capsule RxNorm: 669757 Take 1 Capsule(s) Oral HS at bed time 02/19/20 23 023 Inactive pregabalin 100 mg capsule RxNorm: 339734 Take 1 Capsule(s) Oral QAM every morning 02/18/20 23 023 Inactive venlafaxine ER 75 mg capsule,extended release 24 hr RxNorm: 856305 Take 3 Capsule(s) Oral QD 02/04/20 023 Inactive FreeStyle Chema 2 Sensor kit RxNorm: use as directed 02/04/20 23 023 Inactive FreeStyle Chema 2 Sensor kit RxNorm: use as directed 02/04/20 23 024 Inactive fluconazole 150 mg tablet RxNorm: 920614 Take 1 Tablet(s) Oral on day 3 and on day 6 02/03/20 23 024 Inactive chlorthalidone 25 mg tablet RxNorm: 698406 Take 1 Tablet(s) Oral QAM every morning 02/03/20 23 No Stop Date Active venlafaxine ER 150 mg capsule,extended release 24 hr RxNorm: 881454 Take 1 Capsule(s) Oral QD 02/03/20 23 023 Inactive acetaminophen 500 mg tablet RxNorm: 029818 1 TABLET ORALLY 3 TIMES DAILY (MAX APAP:4GM/24HR) 12/15/19 23 023 Inactive clotrimazole 1 % topical cream RxNorm: 647658 apply 1g topically to top of feet and in between toes BID 12/09/19 23 023 Inactive potassium chloride ER 20 mEq tablet,extended release RxNorm: 373392 Take 1 Tablet(s) Oral BID 12/09/19 024 Inactive d/c 20mEq once daily (sent from hospital) nystatin 100,000 unit/gram topical powder RxNorm: 578937 APPLY TO AFFECTED AREAS TOPICALLY 2 TIMES DAILY 11/21/19 23 024 Inactive Nystop 100,000 unit/gram topical powder RxNorm: 866423 Apply to abd folds, under breasts and L side of groin Topical BID x 14 days, then BID PRN 11/20/19 023 Inactive dx: yeast dermatitis [place] Ultra Strength 4 %-30 %-10 % topical cream RxNorm: 502246 Apply 1 Gram(s) Topical QID PRN to feet and legs for neuropathic pain 11/11/19 024 Inactive clotrimazole 1 % topical cream RxNorm: 058769 Apply 1/2 Gram(s) Topical BID Apply to affected areas of groin, periarea, and abdominal topically 2 times daily 11/10/19 23 023 Inactive hydrocortisone 2.5 % topical cream RxNorm: 173570 Apply 1/2 Gram(s) Topical BID as needed 11/10/19 024 Inactive Humulin R U-500 (Concentrated) Insulin 500 unit/mL subcutaneous soln RxNorm: 459963 Inject 100 Unit(s) Subcutaneous TID 10/07/19 23 024 Inactive Levemir FlexPen 100 unit/mL (3 mL) solution subcutaneous insulin pen RxNorm: 213538 Inject 30 Unit(s) Subcutaneous BID 10/07/19 23 023 Inactive Ozempic 0.25 mg or 0.5 mg (2 mg/3 mL) subcutaneous pen injector RxNorm: 5989139 Inject 1/2 Milligram(s) Subcutaneous QW once a week 10/07/19 024 Inactive aripiprazole 15 mg tablet RxNorm: 949665 /2 TAB (7.5MG) ORALLY DAILY (DX:MAJOR DEPRESSIVE DISORDER) 09/23/19 023 Inactive Lancets,Thin 28 gauge RxNorm: Use 1 as directed QID 09/15/19 23 024 Inactive Accu-Chek Guide test strips RxNorm: Use 1 Test Strip QID 09/15/19 23 023 Inactive ok to substitute with any covered alternative test strip torsemide 20 mg tablet RxNorm: 080907 Take 1 Tablet(s) Oral BID 09/09/19 23 024 Inactive d/c once daily dosing carvedilol 25 mg tablet RxNorm: 153779 Take 1 Tablet(s) Oral QD 08/25/19 024 Inactive pregabalin 150 mg capsule RxNorm: 236336 1 Capsule(s) Oral HS at bed time 08/18/19 023 Inactive pregabalin 100 mg capsule RxNorm: 931065 1 Capsule(s) Oral QAM every morning 08/18/19 23 023 Inactive carvedilol 25 mg tablet RxNorm: 335290 1 Tablet(s) Oral QD 07/28/19 23 023 Inactive lisinopril 20 mg tablet RxNorm: 771538 Give 1 Tablet(s) Oral QD 07/28/19 23 023 Inactive Lyrica 150 mg capsule RxNorm: 066925 Take 1 Capsule(s) Oral QHS every night at bedtime 07/19/19 23 023 Inactive d/c 100mg dose Diflucan 150 mg tablet RxNorm: 379771 Take 1 Tablet(s) Oral QD repeat on day 3 and 6 07/19/19 23 023 Inactive pregabalin 100 mg capsule RxNorm: 652557 Take 1 Capsule(s) Oral QAM every morning 07/19/19 23 023 Inactive gatifloxacin 0.5 % eye drops RxNorm: 365702 Instill 1 Drop(s) as directed TID Instill 1 drop in to affected eye(s) starting 1 day prior to surgery and continue until gone (do not exceed 4 weeks). 07/13/19 23 023 Inactive carvedilol 25 mg tablet RxNorm: 590269 2 Tablet(s) Oral BID 07/13/19 23 023 Inactive Humulin R Regular U-100 Insulin 100 unit/mL injection solution RxNorm: 408537 85 Unit(s) Injection TID 07/13/19 23 023 Inactive ketorolac 0.5 % eye drops RxNorm: 577743 Instill 1 Drop(s) as directed QID Instill 1 drop into affected eye(s) 4 times daily starting 1 day prior to surgery and continue until gone (do not exceed 4 weeks). 07/13/19 023 Inactive Diflucan 150 mg tablet RxNorm: 433261 Take 1 Tablet(s) Oral QD repeat on day 3 and 6 06/30/19 23 023 Inactive Accu-Chek Guide test strips RxNorm: Use 1 Test Strip QID Use 1 test strip to monitor blood glucose 4 times daily and as needed. Dx:E11.42. 06/23/19 23 023 Inactive ok to substitute with any covered alternative test strip dextromethorphan-gu aifenesin 10 mg-100 mg/5 mL oral liquid RxNorm: 321182 Take 10 Milliliter(s) Oral every 4 hours as needed for cough 06/19/19 23 023 Inactive dextromethorphan-gu aifenesin 10 mg-100 mg/5 mL oral liquid RxNorm: 139492 Take 10 Milliliter(s) Oral every 4 hours as needed for cough 06/19/19 023 Inactive Lyrica 150 mg capsule RxNorm: 699467 Take 1 Capsule(s) Oral QHS every night at bedtime 06/18/19 23 023 Inactive d/c 100mg dose aripiprazole 15 mg tablet RxNorm: 108178 1/2 TAB (7.5MG) ORALLY DAILY (DX:MAJOR DEPRESSIVE DISORDER) 06/05/19 23 023 Inactive pregabalin 100 mg capsule RxNorm: 837516 1 Capsule(s) Oral QAM every morning 06/02/19 023 Inactive Banophen 50 mg capsule RxNorm: 7239275 Take 1 Capsule(s) Oral Q6H every 6 hours as needed 05/19/19 No Stop Date Active Novolog Flexpen U-100 Insulin aspart 100 unit/mL (3 mL) subcutaneous RxNorm: 3868224 Inject 10 Unit(s) Subcutaneous QHS every night at bedtime with nighttime snack 04/08/20 022 Inactive Novolog Flexpen U-100 Insulin aspart 100 unit/mL (3 mL) subcutaneous RxNorm: 9981869 Inject 42 Unit(s) Subcutaneous TID in addition to sliding scale 04/08/20 Inactive d/c 36u albuterol sulfate HFA 90 mcg/actuation aerosol inhaler RxNorm: 2044018 Take 2 Puff(s) Inhalation Q4H every four hours as needed as needed for SOB, cough, or wheezing 04/07/20 030 Active Banophen 50 mg capsule RxNorm: 0948426 Take 1 Capsule(s) Oral Q6H every 6 hours as needed 04/06/20 023 Inactive diphenhydramine 50 mg tablet RxNorm: 8372847 Take 1 Tablet(s) Oral Q6H every 6 hours as needed 04/06/20 022 Inactive diphenhydramine 50 mg tablet RxNorm: 2992643 1 Tablet(s) Oral Q6H every 6 hours as needed 04/06/20 022 Inactive Abilify 15 mg tablet RxNorm: 058690 1/2 Tablet(s) Oral QD 03/10/20 22 023 Inactive Shingrix (PF) 50 mcg/0.5 mL intramuscular suspension, kit RxNorm: 9858963 Administer 1/2 Milliliter(s) Intramuscular QD one time shingrix step 2 ( step 1 given 11/04/21) WITH needle - Nursing please administer upon arrival and once administered post a bridge message with date of administration, mold carrier, expiration date, and lot# so we can update [facility] 02/18/20 22 022 Inactive dispense with needle Shingrix (PF) 50 mcg/0.5 mL intramuscular suspension, kit RxNorm: 5756901 Administer 1/2 Milliliter(s) Intramuscular QD one time shingrix step 2 ( step 1 given 11/04/21) WITH needle - Nursing please administer upon arrival and once administered post a bridge message with date of administration, mold carrier, expiration date, and lot# so we can update [facility] 02/18/20 22 022 Inactive dispense with needle polyethylene glycol 3350 17 gram/dose oral powder RxNorm: 894330 Take 17=1 capful Gram(s) Oral QD mix with 4-8oz of liquid 01/08/20 22 023 Inactive take this in addition to BID prn order Lyrica 100 mg capsule RxNorm: 083878 Take 1 Capsule(s) Oral QAM every morning 01/08/20 22 022 Inactive d/c 50mg dose acetaminophen 500 mg tablet RxNorm: 811755 Take 1 Tablet(s) Oral TID 01/08/20 22 022 Inactive d/c PRN order Lyrica 150 mg capsule RxNorm: 611638 Take 1 Capsule(s) Oral QHS every night at bedtime 01/08/20 22 023 Inactive d/c 100mg dose Abilify 5 mg tablet RxNorm: 544898 Take 1 Tablet(s) Oral QD take 1 tab po QD #30 refill 5 dx: MDD 12/12/19 22 022 Inactive Abilify 5 mg tablet RxNorm: 080627 Take 1 Tablet(s) Oral QD take 1 tab po QD #30 refill 5 dx: MDD 12/12/19 22 022 Inactive Novolog Flexpen U-100 Insulin aspart 100 unit/mL (3 mL) subcutaneous RxNorm: 8457608 Inject 42 Unit(s) Subcutaneous TID in addition to sliding scale 12/10/19 22 022 Inactive d/c 36u chlorthalidone 25 mg tablet RxNorm: 230065 Take 1 Tablet(s) Oral QAM every morning 12/10/19 22 023 Inactive pregabalin 50 mg capsule RxNorm: 475215 Take 1 Capsule(s) Oral QAM every morning 11/12/19 22 022 Inactive tetanus-diphtheria toxoids-Td 2 Lf unit-2 Lf unit/0.5 mL IM suspension RxNorm: 139 Take 0.5 Miscellaneous Intramuscular 11/12/19 22 Inactive need tdap - nursing to administer upon arrival pregabalin 50 mg capsule RxNorm: 576590 Take 1 Capsule(s) Oral QAM every morning 10/16/19 22 Inactive pregabalin 50 mg capsule RxNorm: 914499 Take 1 Capsule(s) Oral QAM every morning 10/16/19 22 022 Inactive pregabalin 50 mg capsule RxNorm: 627190 1 Capsule(s) Oral QAM every morning 10/15/19 22 Inactive Shingrix (PF) 50 mcg/0.5 mL intramuscular suspension, kit RxNorm: 8378564 Administer 1/2 Milliliter(s) Intramuscular one time Nursing please administer upon arrival and once administered post a bridge message with date of administration, mold carrier, expiration date, and lot# so we can update [facility]. 10/09/19 22 022 Inactive shingrix step 1 Shingrix (PF) 50 mcg/0.5 mL intramuscular suspension, kit RxNorm: 0999779 Administer 1/2 Milliliter(s) Intramuscular one time Nursing please administer upon arrival and once administered post a bridge message with date of administration, mold carrier, expiration date, and lot# so we can update [facility]. 10/09/19 22 022 Inactive shingrix step 1 cholecalciferol (vitamin D3) 1,250 mcg (50,000 unit) capsule RxNorm: 595253 Take 1 Capsule(s) Oral QW once a [...] aspart 100 unit/mL (3 mL) subcutaneous RxNorm: 3620672 Inject 10 Unit(s) Subcutaneous QHS every night at bedtime with nighttime snack 10/08/19 22 Inactive Shingrix (PF) 50 mcg/0.5 mL intramuscular suspension, kit RxNorm: 6300498 ADMINISTER 2-DOSE SERIES PER CDC GUIDELINES 10/08/19 22 Active Shingrix (PF) 50 mcg/0.5 mL intramuscular suspension, kit RxNorm: 8139722 ADMINISTER 2-DOSE SERIES PER CDC GUIDELINES 10/08/19 22 Inactive Novolog Flexpen U-100 Insulin aspart 100 unit/mL (3 mL) subcutaneous RxNorm: 8864349 Inject 36 Unit(s) Subcutaneous TID in addition to sliding scale 10/08/19 22 Inactive Novofine Autocover 30 gauge x 1/3 needle RxNorm: Use 1 Miscellaneous UD as directed Use 1 needle as directed to administer insulin 5 times a day Dx:E11.42. 10/03/19 22 Inactive ok to substitute with any covered alternative pen needle benzoyl peroxide 10 % topical cleanser RxNorm: 048489 Apply 1 Application Topical QD apply to face, wash rinse and dry once daily (may change to QOD if drying) 08/19/19 22 022 Inactive (%covered by insurance) #60ml refill 11 dx: acne benzoyl peroxide 10 % topical cleanser RxNorm: 814652 Apply 1 Application Topical QD apply to face, wash rinse and dry once daily (may change to QOD if drying) 08/19/19 22 022 Inactive (%covered by insurance) #60ml refill 11 dx: acne benzoyl peroxide 10 % topical cleanser RxNorm: 978140 Apply 1 Application Topical QD apply to face, wash rinse and dry once daily (may change to QOD if drying) 08/19/19 22 022 Inactive (%covered by insurance) #60ml refill 11 dx: acne Lyrica 50 mg capsule RxNorm: 669718 Take 1 Capsule(s) Oral QAM every morning Take 1 capsule by mouth once daily 08/19/19 22 Inactive benzoyl peroxide 10 % topical cleanser RxNorm: 751887 Apply 1 Application Topical QD apply to face, wash rinse and dry once daily (may change to QOD if drying) 08/19/19 22 Inactive (%covered by insurance) #60ml refill 11 dx: acne Lyrica 100 mg capsule RxNorm: 587828 Take 1 Capsule(s) Oral QHS every night at bedtime Take 1 capsule by mouth once daily at bedtime 08/19/19 22 022 Inactive Lyrica 100 mg capsule RxNorm: 835023 Take 1 Capsule(s) Oral QHS every night at bedtime Take 1 capsule by mouth once daily at bedtime 08/16/19 22 Inactive Lyrica 50 mg capsule RxNorm: 291194 Take 1 Capsule(s) Oral QAM every morning Take 1 capsule by mouth once daily 08/16/19 22 Inactive Levemir FlexTouch U-100 Insulin 100 unit/mL (3 mL) subcutaneous pen RxNorm: 176948 Inject 86 Unit(s) Subcutaneous BID 08/05/19 22 022 Inactive d/c 83units BID Lyrica 100 mg capsule RxNorm: 977168 Take 1 Capsule(s) Oral QHS every night at bedtime Take 1 capsule by mouth once daily at bedtime 07/14/19 22 022 Inactive Lyrica 50 mg capsule RxNorm: 015674 Take 1 Capsule(s) Oral QAM every morning Take 1 capsule by mouth once daily 07/14/19 22 022 Inactive Levemir FlexTouch U-100 Insulin 100 unit/mL (3 mL) subcutaneous pen RxNorm: 774041 Inject 83 Unit(s) Subcutaneous BID 07/08/19 22 [...] test strip hydralazine 50 mg tablet RxNorm: 144435 Take 1 Tablet(s) Oral QID 05/05/20 21 022 Inactive venlafaxine ER 225 mg tablet,extended release 24 hr RxNorm: 075602 Take 1 Tablet(s) Oral QD 05/05/20 21 021 Inactive venlafaxine ER 225 mg tablet,extended release 24 hr RxNorm: 980659 Take 1 Tablet(s) Oral QD 05/05/20 21 022 Inactive isosorbide mononitrate ER 30 mg tablet,extended release 24 hr RxNorm: 857725 Take 1 Tablet(s) Oral QD 05/05/20 21 024 Inactive hydralazine 50 mg tablet RxNorm: 864893 Take 1 Tablet(s) Oral QID 05/05/20 021 Inactive aspirin 81 mg tablet,delayed release RxNorm: 121678 Take 1 Tablet(s) Oral QD 03/31/20 022 Inactive Vitamin D2 1,250 mcg (50,000 unit) capsule RxNorm: 6289287 Take 1 Capsule(s) Oral QW once a week x 12 weeks 03/31/20 022 Inactive Vitamin D2 1,250 mcg (50,000 unit) capsule RxNorm: 5814640 Take 1 Capsule(s) Oral QW once a week 03/31/20 021 Inactive Zetia 10 mg tablet RxNorm: 502035 Take 1 Tablet(s) Oral QD 03/31/20 024 Inactive Zetia 10 mg tablet RxNorm: 733858 Take 1 Tablet(s) Oral QD 03/31/20 Inactive hydralazine 25 mg tablet RxNorm: 121628 Take 1 Tablet(s) Oral QID 03/31/20 021 Inactive hydralazine 25 mg tablet RxNorm: 291789 Take 1 Tablet(s) Oral QID 03/31/20 021 Inactive hydralazine 10 mg tablet RxNorm: 009367 Take 1 Tablet(s) Oral QID 03/03/20 021 Inactive cephalexin 500 mg tablet RxNorm: 016176 Take 1 Tablet(s) Oral QID 02/27/20 021 Inactive cephalexin 500 mg tablet RxNorm: 768176 Take 1 Tablet(s) Oral QID 02/27/20 021 Inactive lisinopril 40 mg tablet RxNorm: 406657 Take 1 Tablet(s) Oral QD 02/11/20 21 023 Inactive Eliquis 5 mg tablet RxNorm: 8343540 Take 1 Tablet(s) Oral BID 01/05/20 21 022 Inactive Eliquis 5 mg tablet RxNorm: 3590751 Take 2 Tablet(s) Oral QD 01/01/20 21 021 Inactive Lyrica 50 mg capsule RxNorm: 523266 Take 1 Capsule(s) Oral QAM every morning 12/24/19 21 021 Inactive Lyrica 100 mg capsule RxNorm: 413021 Take 1 Capsule(s) Oral QHS every night at bedtime 12/24/19 21 021 Inactive clotrimazole 1 % topical cream RxNorm: 918046 Apply to right foot and toes Topical BID 12/04/19 21 023 Inactive metoprolol succinate ER 200 mg tablet,extended release 24 hr RxNorm: 375645 Take 1 Tablet(s) Oral QD 12/04/19 21 023 Inactive ciprofloxacin 500 mg tablet RxNorm: 053099 Take 1 Tablet(s) Oral QD 11/30/19 21 021 Inactive DX ofloxacin otic drops Accu-Chek Guide test strips RxNorm: USE 1 TO CHECK GLUCOSE 4 TIMES DAILY AND NEEDED 11/15/19 21 023 Inactive Blood Glucose Test strips RxNorm: Use 1 Test Strip QID at PRN 11/05/19 21 023 Inactive E11.42 lisinopril 30 mg tablet RxNorm: 566026 Take 1 Tablet(s) Oral QD 10/30/19 21 021 Inactive lisinopril 20 mg tablet RxNorm: 560069 Take 1 Tablet(s) Oral QD 10/23/19 21 021 Inactive lisinopril 20 mg tablet RxNorm: 872094 Take 1 Tablet(s) Oral QD 10/23/19 21 021 Inactive lisinopril 10 mg tablet RxNorm: 583766 Take 1 Tablet(s) Oral QD 10/02/19 21 021 Inactive icosapent ethyl 1 gram capsule RxNorm: 7633858 Take 2 Capsule(s) (2 gm) Oral BID with meals 09/12/19 21 024 Inactive Okay to dispense one 2gm tab if you have that available. icosapent ethyl 1 gram capsule RxNorm: 4719998 Take 2 Capsule(s) Oral BID 09/12/19 21 021 Inactive Okay to dispense one 2gm tab if you have that available. amlodipine 10 mg tablet RxNorm: 939099 Take 1 Tablet(s) Oral QD 09/04/19 21 022 Inactive aspirin 81 mg tablet,delayed release RxNorm: 097200 Take 1 Tablet(s) Oral QD 09/04/19 21 Inactive Levemir FlexTouch U-100 Insulin 100 unit/mL (3 mL) subcutaneous pen RxNorm: 732369 Inject 150 Unit(s) Subcutaneous BID 09/04/19 21 022 Inactive venlafaxine ER 150 mg tablet,extended release 24 hr RxNorm: 556832 Take 1 Tablet(s) Oral QD 09/04/19 Inactive clotrimazole-betame thasone 1 %-0.05 % topical cream RxNorm: 420822 Apply to rash on red area on left abdomen/chest Topical BID 08/10/19 21 Inactive amlodipine 5 mg tablet RxNorm: 926848 Take 1 Tablet(s) Oral QD 07/31/19 Inactive cephalexin 500 mg tablet RxNorm: 408404 Take 1 Tablet(s) Oral BID BID - Twice Daily 07/31/19 021 Inactive Start 08/01/20 pantoprazole 40 mg tablet,delayed release RxNorm: 510417 Take 1 Tablet(s) Oral QAM every morning 07/08/19 022 Inactive senna 8.6 mg tablet RxNorm: 816262 Take 1 Tablet(s) Oral QD 07/08/19 022 Inactive carbamazepine 200 mg tablet RxNorm: 058443 Take 1 Tablet(s) Oral BID 07/08/19 022 Inactive clopidogrel 75 mg tablet RxNorm: 038053 Take 1 Tablet(s) Oral QD 07/08/19 21 021 Inactive Blood Glucose Test strips RxNorm: Use 1 Test Strip QID at PRN 07/08/19 21 Inactive E11.42 Novolog Flexpen U-100 Insulin aspart 100 unit/mL (3 mL) subcutaneous RxNorm: 3700272 Administer per sliding scale Milliliter(s) Subcutaneous TID 151-200: 10 u; 201-250: 20 u; 251-300: 30 u; 301-350: 40 u; 351-400: 50 u. 07/08/19 21 022 Inactive lisinopril 5 mg tablet RxNorm: 968443 Take 1 Tablet(s) Oral QD 07/08/19 021 Inactive Novolog Flexpen U-100 Insulin aspart 100 unit/mL (3 mL) subcutaneous RxNorm: 3042979 Inject 85 Unit(s) Subcutaneous TID 07/08/19 022 Inactive pravastatin 80 mg tablet RxNorm: 623778 Take 1 Tablet(s) Oral QHS every night at bedtime 07/08/19 023 Inactive clotrimazole 1 % topical cream RxNorm: 530889 Apply to bilateral groin areas Topical BID 07/08/19 022 Inactive metoprolol succinate ER 200 mg tablet,extended release 24 hr RxNorm: 074238 Take 1 Tablet(s) Oral QD 07/08/19 021 Inactive Vitamin D3 25 mcg (1,000 unit) tablet RxNorm: 806581 Take 1 Tablet(s) Oral QD 07/08/19 021 Inactive isosorbide dinitrate 30 mg tablet RxNorm: 302476 Take 1 Tablet(s) Oral QD 07/08/19 021 Inactive Levemir FlexTouch U-100 Insulin 100 unit/mL (3 mL) subcutaneous pen RxNorm: 875273 Inject 140 Unit(s) Subcutaneous BID 07/08/19 021 Inactive torsemide 20 mg tablet RxNorm: 767057 Take 1 Tablet(s) Oral QD 07/08/19 023 Inactive venlafaxine 75 mg tablet RxNorm: 975557 Take 1 Tablet(s) Oral QD 07/08/19 021 Inactive acetaminophen 500 mg tablet RxNorm: 114186 Take 1 Tablet(s) Oral TID as needed for headache 06/18/19 021 Inactive acetaminophen 500 mg tablet RxNorm: 041708 Take 1 Tablet(s) Oral TID as needed for headache 06/18/19 021 Inactive Lyrica 100 mg capsule RxNorm: 058531 Take 1 Capsule(s) Oral QHS every night at bedtime 06/11/19 21 021 Inactive Lyrica 50 mg capsule RxNorm: 735358 Take 1 Capsule(s) Oral QAM every morning 06/10/19 21 021 Inactive hydrocortisone 2.5 % topical cream RxNorm: 064941 Apply to bilateral groin creases Topical BID 05/15/20 20 021 Inactive clotrimazole 1 % topical cream RxNorm: 383344 Apply to bilateral groin areas Topical BID 05/15/20 20 021 Inactive Lyrica 50 mg capsule RxNorm: 442251 Take 1 Capsule(s) Oral QAM every morning 05/14/20 20 020 Inactive Lyrica 100 mg capsule RxNorm: 279672 Take 1 Capsule(s) Oral QHS every night [...] Inactive Nystop 100,000 unit/gram topical powder RxNorm: 479249 Apply to abd folds, under breasts and L side of groin Topical BID x 14 days, then BID PRN 04/08/20 20 020 Inactive dx: yeast dermatitis Lyrica 100 mg capsule RxNorm: 110491 Take 1 Capsule(s) Oral QHS every night at bedtime 03/13/20 20 020 Inactive Lyrica 50 mg capsule RxNorm: 614132 Take 1 Capsule(s) Oral QAM every morning 03/13/20 20 Inactive ketoconazole 2 % shampoo RxNorm: 678835 Apply Topical two times a week with showers 03/11/20 20 Inactive cholecalciferol (vitamin D3) 50 mcg (2,000 unit) tablet RxNorm: 364190 Take 1 Tablet(s) Oral QD 03/11/20 021 Inactive Zetia 10 mg tablet RxNorm: 326633 Take 1 Tablet(s) Oral QD 03/07/20 20 Inactive Zetia 10 mg tablet RxNorm: 459919 Take 1 Tablet(s) Oral QD 03/07/20 Inactive Lyrica 50 mg capsule RxNorm: 986118 Take 1 Capsule(s) Oral QAM every morning 02/15/20 20 Inactive Lyrica 100 mg capsule RxNorm: 309689 Take 1 Capsule(s) Oral QHS every night at bedtime 02/15/20 Inactive Lyrica 100 mg capsule RxNorm: 777714 Take 1 Capsule(s) Oral QHS every night at bedtime 02/15/20 20 Inactive Lyrica 50 mg capsule RxNorm: 085099 Take 1 Capsule(s) Oral QAM every morning 02/15/20 20 Inactive metoprolol succinate ER 200 mg tablet,extended release 24 hr RxNorm: 238292 Take 1 Tablet(s) Oral QD 08/12/19 23 Active loperamide 2 mg capsule RxNorm: 427505 Take 1 Capsule(s) Oral QID as needed 06/12/19 22 Active hydralazine 50 mg tablet RxNorm: 942070 Take 1 Tablet(s) Oral QID 08/12/19 23 Active venlafaxine ER 75 mg capsule,extended release 24 hr RxNorm: 935823 Take 3 Capsule(s) Oral QD 06/12/19 023 Inactive polyethylene glycol 3350 17 gram/dose oral powder RxNorm: 968567 Take 17=1 capful Gram(s) Oral BID as needed mix with 4-8oz of liquid 06/12/19 22 024 Inactive icosapent ethyl 1 gram capsule RxNorm: 4304142 Take 2 Capsule(s) (2 gm) Oral BID with meals 10/07/19 23 023 Inactive Okay to dispense one 2gm tab if you have that available. Levemir FlexTouch U-100 Insulin 100 unit/mL (3 mL) subcutaneous pen RxNorm: 159239 Inject 80 Unit(s) Subcutaneous BID 07/14/19 23 023 Inactive Novolog Flexpen U-100 Insulin aspart 100 unit/mL (3 mL) subcutaneous RxNorm: 9103732 Insert 30 Unit(s) Subcutaneous TID with meals [...] Codes Status Date Referral: [facility] WPtel: [phone], [address] [id number] Referral Records Received 09/21/2022 Referral: [facility] WPtel: [address] [id number] [place] Referral Completed 05/28/2021 Referral: General Cardiology [...] Sister Jyotsna involved in his care cell# [phone] Guardian: Don (tapan met in person 09/01/21), [...] note from 11.08.2023 at [facility] (follow up 6 months)Colon & Rectal Surgery visit scheduled for 03/08/24 with Matilde Pérez PA-C. 02/08/2024
--- OUTSIDE RECORDS SUMMARY | 2024-02-19 14:19 | XMS_ITS | CCD ---
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 Dining Service Inspector Name Role Phone Arpit MENDOZA Harrison Primary Care Provider Leona vailable Arpit ARLENParker Harrison Chronic Care Management U navailable Summary Purpose DataExchange Insurance Providers Payer name Policy type / Coverage type Covered green party ID Effective Begin Date Effective End Date [place] Medicare Part B [id number] Unknown Unknown Medicaid [place] Medicare Part B [id number] Unknown Unknown Family history Sister Brittany Suggs Diagnosis Age At Onset No Family Disease Entered N/A Runs in the family Diagnosis Age At Onset No Known Diseases N/A Sister Blanka Mcduffie Diagnosis Age At Onset No Family Disease Entered N/A Social History Social History Element Codes Description Effec tive Dates Tobacco history SNOMED CT: 084031498 Never smoker 01/16 Sexually Active? Unknown No [...] Single 10/07/2021 Living arrangements Unknown Jail 09/03/[address]: 154960532 No Alcohol Consum ption 09/02/2020 Allergies, Adverse Reactions, Alerts Substance Reaction Codes Entered Date Inactivated Date Status * NO KNOWN FOOD ALLERGIES Unknown 07/13/2023 No Inactive Date Active LISINOPRIL RxNorm: 19289 02/12/2020 No Inactive Da te Active Metformin [...] 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 Other senior living (current) dr ug therapy ICD-10: Z79.899 ICD-9: [...] 09/07/2023 Resolved Coronary artery disease invo lving [place] coronary [...] ICD-10: Z23 ICD-9: V03.89 02/10/2022 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 ICD-10: Z79.4 [...] Fill Instructions pregabalin 100 mg capsule RxNorm: 825713 Take 1 Capsule(s) Oral QAM every morning 02/07/20 24 024 Active isosorbide mononitrate ER 60 mg tablet,extended release 24 hr RxNorm: 319880 Take 1 Tablet(s) Oral QD 02/01/20 24 025 Active aripiprazole 15 mg tablet RxNorm: 400038 Take 1/2 Tablet(s) Oral QD 02/01/20 24 025 Active torsemide 20 mg tablet RxNorm: 391814 1 TAB ORALLY DAILY (DX: EDEMA) 01/27/20 24 No Stop Date Active potassium chloride ER 20 mEq tablet,extended release(part/cryst) RxNorm: 6876497 2 TABS (40MEQ) ORALLY TWICE DAILY (DX: HYPOKALEMIA) 01/27/20 No Stop Date Active cephalexin 500 mg capsule RxNorm: 543602 Take 1 Capsule(s) Oral QID 12/17/19 24 Inactive cephalexin 500 mg capsule RxNorm: 924697 Take 1 Capsule(s) Oral QID 12/17/19 24 Inactive acetaminophen 500 mg tablet RxNorm: 147106 (MAX APAP:4GM/24HR) Take 1 Tablet(s) Oral TID as needed for pain 12/10/19 24 Active torsemide 20 mg tablet RxNorm: 527235 Take 1 Tablet(s) Oral QD 10/26/19 24 024 Inactive potassium chloride ER 20 mEq tablet,extended release RxNorm: 19800522 Take 2 Tablet(s) Oral BID 10/26/19 24 Active torsemide 20 mg tablet RxNorm: 526775 Take 1 Tablet(s) Oral QD 10/26/19 24 Inactive potassium chloride ER 20 mEq tablet,extended release RxNorm: 888070 Take 2 Tablet(s) Oral BID 10/26/19 24 Inactive Artificial Tears (PF) 0.1 %-0.3 % drops in a dropperette RxNorm: 818173 Apply 1-2 Drop(s) Both eyes BID as needed 09/28/19 24 025 Active erythromycin 5 mg/gram (0.5 %) eye ointment RxNorm: 164977 Apply 1 Application Both eyes QHS every night at bedtime Instill ~1 cm ribbon into affected eye 09/28/19 24 Inactive Artificial Tears (PF) 0.1 %-0.3 % drops in a dropperette RxNorm: 994628 Apply 1-2 Drop(s) Both eyes BID as needed 09/28/19 24 024 Inactive erythromycin 5 mg/gram (0.5 %) eye ointment RxNorm: 433484 Apply 1 Application Both eyes QHS every night at bedtime Instill ~1 cm ribbon into affected eye 09/28/19 24 Inactive acetaminophen 500 mg tablet RxNorm: 439178 (MAX APAP:4GM/24HR) Take 1 Tablet(s) Oral TID as needed for pain 09/24/19 24 024 Inactive carvedilol 25 mg tablet RxNorm: 065353 Take 1 Tablet(s) Oral QD 09/08/19 24 No Stop Date Active pregabalin 100 mg capsule RxNorm: 001491 Take 1 Capsule(s) Oral QAM every morning 09/07/19 24 024 Inactive rosuvastatin 40 mg tablet RxNorm: 728136 Take 1 Tablet(s) Oral QPM every evening 07/13/19 24 No Stop Date Active ezetimibe 10 mg tablet RxNorm: 112407 Take 1 Tablet(s) Oral QD 07/13/19 24 No Stop Date Active bisacodyl 10 mg rectal suppository RxNorm: 300113 Insert 1 Suppository Rectal QD as needed 07/13/19 24 No Stop Date Active polyethylene glycol 3350 17 gram/dose oral powder RxNorm: 093022 Take 17 Gram(s) Oral BID as needed mix in 4-8ox water 07/13/19 24 No Stop Date Active ketoconazole 2 % shampoo RxNorm: 301138 Apply 1 Application Topical UD as directed 07/13/19 24 No Stop Date Active Ozempic 1 mg/dose (4 mg/3 mL) subcutaneous pen injector RxNorm: 9180796 Inject 1 Milligram(s) Subcutaneous QW once a week 07/13/19 24 No Stop Date Active Guaifenesin AC 10 mg-100 mg/5 mL oral liquid RxNorm: 997348 Take 10 Milliliter(s) Oral Q4H every four hours as needed 07/13/19 24 No Stop Date Active ammonium lactate 12 % topical cream RxNorm: 265085 Apply 1 Application Topical BID 07/13/19 24 No Stop Date Active hydrocortisone 2.5 % topical cream RxNorm: 467365 Apply 1 Application Topical BID as needed 07/13/19 24 No Stop Date Active rosuvastatin 20 mg sprinkle capsule RxNorm: 9972669 Take 1 Capsule(s) Oral QD 07/13/19 24 No Stop Date Active Vascepa 1 gram capsule RxNorm: 8857091 Take 2 Capsule(s) Oral BID 07/13/19 24 No Stop Date Active venlafaxine ER 75 mg capsule,extended release 24 hr RxNorm: 733530 Take 3 Capsule(s) Oral QD 07/13/19 24 No Stop Date Active aripiprazole 15 mg tablet RxNorm: 162153 Take 1/2 Tablet(s) Oral QD 07/13/19 24 024 Inactive isosorbide mononitrate ER 60 mg tablet,extended release 24 hr RxNorm: 556744 Take 1 Tablet(s) Oral QD 07/13/19 24 024 Inactive Basaglar KwikPen U-100 Insulin 100 unit/mL (3 mL) subcutaneous RxNorm: 6699844 Inject 30U SubQ twice daily 07/07/19 24 024 Inactive Please dispense one month supply. Basaglar KwikPen U-100 Insulin 100 unit/mL (3 mL) subcutaneous RxNorm: 8625877 Inject 30U SubQ twice daily 07/07/19 24 024 Inactive Please dispense one month supply. pregabalin 150 mg capsule RxNorm: 161852 Take 1 Capsule(s) Oral QHS every night at bedtime 07/05/19 24 024 Inactive pregabalin 150 mg capsule RxNorm: 368039 Take 1 Capsule(s) Oral QHS every night at bedtime 07/05/19 24 024 Inactive polyethylene glycol 3350 17 gram/dose oral powder RxNorm: 595664 Take 1 Packet Oral QD as needed (1 packet = 17g) mix with 4-8oz of liquid 06/15/19 24 024 Inactive bisacodyl 10 mg rectal suppository RxNorm: 025236 Insert one suppository per rectum once daily as needed for constipation 06/15/19 24 024 Inactive bisacodyl 10 mg rectal suppository RxNorm: 257978 Insert one suppository per rectum once daily as needed for constipation 06/15/19 24 024 Inactive pregabalin 100 mg capsule RxNorm: 987191 Take 1 Capsule(s) Oral QAM every morning 04/27/20 23 024 Inactive Levemir FlexPen 100 unit/mL (3 mL) solution subcutaneous insulin pen RxNorm: 085386 Inject 30 Unit(s) Subcutaneous BID 04/27/20 23 024 Inactive rosuvastatin 40 mg tablet RxNorm: 529045 Take 1 Tablet(s) Oral QPM every evening 04/16/20 024 Inactive D/C rosuvastatin 20mg venlafaxine ER 75 mg capsule,extended release 24 hr RxNorm: 010698 Take 3 Capsule(s) Oral QD 04/14/20 023 Inactive pregabalin 100 mg capsule RxNorm: 548632 Take 1 Capsule(s) Oral QAM every morning [...] meter clotrimazole 1 % topical cream RxNorm: 884282 Take apply topically to abdominal folds twice daily for 14 days 03/12/20 024 Inactive Ozempic 1 mg/dose (4 mg/3 mL) subcutaneous pen injector RxNorm: 5635871 Inject 1 Milligram(s) Subcutaneous QW once a week 03/11/20 023 Inactive rosuvastatin 20 mg tablet RxNorm: 956007 Take 1 Tablet(s) Oral QD 02/26/20 23 023 Inactive d/c pravastatin 80mg Ozempic 1 mg/dose (4 mg/3 mL) subcutaneous pen injector RxNorm: 7087729 Inject 1 Milligram(s) Subcutaneous QW once a week 02/20/20 23 023 Inactive pregabalin 150 mg capsule RxNorm: 887143 Take 1 Capsule(s) Oral HS at bed time 02/19/20 23 023 Inactive pregabalin 100 mg capsule RxNorm: 528011 Take 1 Capsule(s) Oral QAM every morning 02/18/20 23 023 Inactive venlafaxine ER 75 mg capsule,extended release 24 hr RxNorm: 491983 Take 3 Capsule(s) Oral QD 02/04/20 23 023 Inactive FreeStyle Chema 2 Sensor kit RxNorm: use as directed 02/04/20 23 023 Inactive FreeStyle Chema 2 Sensor kit RxNorm: use as directed 02/04/20 23 024 Inactive fluconazole 150 mg tablet RxNorm: 675050 Take 1 Tablet(s) Oral on day 3 and on day 6 02/03/20 024 Inactive chlorthalidone 25 mg tablet RxNorm: 895123 Take 1 Tablet(s) Oral QAM every morning 02/03/20 No Stop Date Active venlafaxine ER 150 mg capsule,extended release 24 hr RxNorm: 916567 Take 1 Capsule(s) Oral QD 02/03/20 23 023 Inactive acetaminophen 500 mg tablet RxNorm: 281673 1 TABLET ORALLY 3 TIMES DAILY (MAX APAP:4GM/24HR) 12/15/19 23 023 Inactive clotrimazole 1 % topical cream RxNorm: 477820 apply 1g topically to top of feet and in between toes BID 12/09/19 23 023 Inactive potassium chloride ER 20 mEq tablet,extended release RxNorm: 343681 Take 1 Tablet(s) Oral BID 12/09/19 23 024 Inactive d/c 20mEq once daily (sent from hospital) nystatin 100,000 unit/gram topical powder RxNorm: 483480 APPLY TO AFFECTED AREAS TOPICALLY 2 TIMES DAILY 11/21/19 23 024 Inactive Nystop 100,000 unit/gram topical powder RxNorm: 991414 Apply to abd folds, under breasts and L side of groin Topical BID x 14 days, then BID PRN 11/20/19 23 023 Inactive dx: yeast dermatitis Bengay Ultra Strength 4 %-30 %-10 % topical cream RxNorm: 930366 Apply 1 Gram(s) Topical QID PRN to feet and legs for neuropathic pain 11/11/19 23 024 Inactive clotrimazole 1 % topical cream RxNorm: 505973 Apply 1/2 Gram(s) Topical BID Apply to affected areas of groin, periarea, and abdominal topically 2 times daily 11/10/19 023 Inactive hydrocortisone 2.5 % topical cream RxNorm: 353431 Apply 1/2 Gram(s) Topical BID as needed 11/10/19 024 Inactive Humulin R U-500 (Concentrated) Insulin 500 unit/mL subcutaneous soln RxNorm: 880807 Inject 100 Unit(s) Subcutaneous TID 10/07/19 024 Inactive Levemir FlexPen 100 unit/mL (3 mL) solution subcutaneous insulin pen RxNorm: 970638 Inject 30 Unit(s) Subcutaneous BID 10/07/19 023 Inactive Ozempic 0.25 mg or 0.5 mg (2 mg/3 mL) subcutaneous pen injector RxNorm: 7133040 Inject 1/2 Milligram(s) Subcutaneous QW once a week 10/07/19 024 Inactive aripiprazole 15 mg tablet RxNorm: 180503 1/2 TAB (7.5MG) ORALLY DAILY (DX:MAJOR DEPRESSIVE DISORDER) 09/23/19 023 Inactive Lancets,Thin 28 gauge RxNorm: Use 1 as directed QID 09/15/19 23 024 Inactive Accu-Chek Guide test strips RxNorm: Use 1 Test Strip QID 09/15/19 023 Inactive ok to substitute with any covered alternative test strip torsemide 20 mg tablet RxNorm: 752469 Take 1 Tablet(s) Oral BID 09/09/19 024 Inactive d/c once daily dosing carvedilol 25 mg tablet RxNorm: 134516 Take 1 Tablet(s) Oral QD 08/25/19 024 Inactive pregabalin 150 mg capsule RxNorm: 953012 1 Capsule(s) Oral HS at bed time 08/18/19 023 Inactive pregabalin 100 mg capsule RxNorm: 832116 1 Capsule(s) Oral QAM every morning 08/18/19 023 Inactive carvedilol 25 mg tablet RxNorm: 487308 1 Tablet(s) Oral QD 07/28/19 23 023 Inactive lisinopril 20 mg tablet RxNorm: 606158 Give 1 Tablet(s) Oral QD 07/28/19 23 023 Inactive Lyrica 150 mg capsule RxNorm: 409331 Take 1 Capsule(s) Oral QHS every night at bedtime 07/19/19 23 023 Inactive d/c 100mg dose Diflucan 150 mg tablet RxNorm: 183916 Take 1 Tablet(s) Oral QD repeat on day 3 and 6 07/19/19 23 023 Inactive pregabalin 100 mg capsule RxNorm: 550916 Take 1 Capsule(s) Oral QAM every morning 07/19/19 023 Inactive gatifloxacin 0.5 % eye drops RxNorm: 838988 Instill 1 Drop(s) as directed TID Instill 1 drop in to affected eye(s) starting 1 day prior to surgery and continue until gone (do not exceed 4 weeks). 07/13/19 23 023 Inactive carvedilol 25 mg tablet RxNorm: 660349 2 Tablet(s) Oral BID 07/13/19 23 023 Inactive Humulin R Regular U-100 Insulin 100 unit/mL injection solution RxNorm: 260843 85 Unit(s) Injection TID 07/13/19 23 023 Inactive ketorolac 0.5 % eye drops RxNorm: 373425 Instill 1 Drop(s) as directed QID Instill 1 drop into affected eye(s) 4 times daily starting 1 day prior to surgery and continue until gone (do not exceed 4 weeks). 07/13/19 23 023 Inactive Diflucan 150 mg tablet RxNorm: 850324 Take 1 Tablet(s) Oral QD repeat on day 3 and 6 06/30/19 23 023 Inactive Accu-Chek Guide test strips RxNorm: Use 1 Test Strip QID Use 1 test strip to monitor blood glucose 4 times daily and as needed. Dx:E11.42. 06/23/19 23 023 Inactive ok to substitute with any covered alternative test strip dextromethorphan-gu aifenesin 10 mg-100 mg/5 mL oral liquid RxNorm: 417175 Take 10 Milliliter(s) Oral every 4 hours as needed for cough 06/19/19 23 023 Inactive dextromethorphan-gu aifenesin 10 mg-100 mg/5 mL oral liquid RxNorm: 730894 Take 10 Milliliter(s) Oral every 4 hours as needed for cough 06/19/19 023 Inactive Lyrica 150 mg capsule RxNorm: 796326 Take 1 Capsule(s) Oral QHS every night at bedtime 06/18/19 023 Inactive d/c 100mg dose aripiprazole 15 mg tablet RxNorm: 246759 /2 TAB (7.5MG) ORALLY DAILY (DX:MAJOR DEPRESSIVE DISORDER) 06/05/19 023 Inactive pregabalin 100 mg capsule RxNorm: 698040 1 Capsule(s) Oral QAM every morning 06/02/19 023 Inactive Banophen 50 mg capsule RxNorm: 0538567 Take 1 Capsule(s) Oral Q6H every 6 hours as needed 05/19/19 23 No Stop Date Active Novolog Flexpen U-100 Insulin aspart 100 unit/mL (3 mL) subcutaneous RxNorm: 9341633 Inject 10 Unit(s) Subcutaneous QHS every night at bedtime with nighttime snack 04/08/20 22 022 Inactive Novolog Flexpen U-100 Insulin aspart 100 unit/mL (3 mL) subcutaneous RxNorm: 8483081 Inject 42 Unit(s) Subcutaneous TID in addition to sliding scale 04/08/20 022 Inactive d/c 36u albuterol sulfate HFA 90 mcg/actuation aerosol inhaler RxNorm: 8888247 Take 2 Puff(s) Inhalation Q4H every four hours as needed as needed for SOB, cough, or wheezing 04/07/20 030 Active Banophen 50 mg capsule RxNorm: 0009407 Take 1 Capsule(s) Oral Q6H every 6 hours as needed 04/06/20 023 Inactive diphenhydramine 50 mg tablet RxNorm: 0795727 Take 1 Tablet(s) Oral Q6H every 6 hours as needed 04/06/20 22 022 Inactive diphenhydramine 50 mg tablet RxNorm: 3026590 1 Tablet(s) Oral Q6H every 6 hours as needed 04/06/20 22 022 Inactive Abilify 15 mg tablet RxNorm: 014949 1/2 Tablet(s) Oral QD 03/10/20 22 023 Inactive Shingrix (PF) 50 mcg/0.5 mL intramuscular suspension, kit RxNorm: 3523237 Administer 1/2 Milliliter(s) Intramuscular QD one time shingrix step 2 ( step 1 given 11/04/21) WITH needle - Nursing please administer upon arrival and once administered post a bridge message with date of administration, guard range, expiration date, and lot# so we can update [facility] 02/18/20 22 022 Inactive dispense with needle Shingrix (PF) 50 mcg/0.5 mL intramuscular suspension, kit RxNorm: 7477183 Administer 1/2 Milliliter(s) Intramuscular QD one time shingrix step 2 ( step 1 given 11/04/21) WITH needle - Nursing please administer upon arrival and once administered post a bridge message with date of administration, guard range, expiration date, and lot# so we can update [facility] 02/18/20 22 022 Inactive dispense with needle polyethylene glycol 3350 17 gram/dose oral powder RxNorm: 412815 Take 17=1 capful Gram(s) Oral QD mix with 4-8oz of liquid 01/08/20 22 023 Inactive take this in addition to BID prn order Lyrica 100 mg capsule RxNorm: 858552 Take 1 Capsule(s) Oral QAM every morning 01/08/20 22 022 Inactive d/c 50mg dose acetaminophen 500 mg tablet RxNorm: 600580 Take 1 Tablet(s) Oral TID 01/08/20 22 022 Inactive d/c PRN order Lyrica 150 mg capsule RxNorm: 344377 Take 1 Capsule(s) Oral QHS every night at bedtime 01/08/20 22 023 Inactive d/c 100mg dose Abilify 5 mg tablet RxNorm: 520972 Take 1 Tablet(s) Oral QD take 1 tab po QD #30 refill 5 dx: MDD 12/12/19 22 022 Inactive Abilify 5 mg tablet RxNorm: 657789 Take 1 Tablet(s) Oral QD take 1 tab po QD #30 refill 5 dx: MDD 12/12/19 22 022 Inactive Novolog Flexpen U-100 Insulin aspart 100 unit/mL (3 mL) subcutaneous RxNorm: 1647444 Inject 42 Unit(s) Subcutaneous TID in addition to sliding scale 12/10/19 22 022 Inactive d/c 36u chlorthalidone 25 mg tablet RxNorm: 858108 Take 1 Tablet(s) Oral QAM every morning 12/10/19 22 023 Inactive pregabalin 50 mg capsule RxNorm: 082803 Take 1 Capsule(s) Oral QAM every morning 11/12/19 22 022 Inactive tetanus-diphtheria toxoids-Td 2 Lf unit-2 Lf unit/0.5 mL IM suspension RxNorm: 139 Take 0.5 Miscellaneous Intramuscular 11/12/19 22 022 Inactive need tdap - nursing to administer upon arrival pregabalin 50 mg capsule RxNorm: 982937 Take 1 Capsule(s) Oral QAM every morning 10/16/19 22 022 Inactive pregabalin 50 mg capsule RxNorm: 714780 Take 1 Capsule(s) Oral QAM every morning 10/16/19 22 022 Inactive pregabalin 50 mg capsule RxNorm: 080103 1 Capsule(s) Oral QAM every morning 10/15/19 22 022 Inactive Shingrix (PF) 50 mcg/0.5 mL intramuscular suspension, kit RxNorm: 3554312 Administer 1/2 Milliliter(s) Intramuscular one time Nursing please administer upon arrival and once administered post a bridge message with date of administration, guard range, expiration date, and lot# so we can update [facility]. 10/09/19 22 022 Inactive shingrix step 1 Shingrix (PF) 50 mcg/0.5 mL intramuscular suspension, kit RxNorm: 2135380 Administer 1/2 Milliliter(s) Intramuscular one time Nursing please administer upon arrival and once administered post a bridge message with date of administration, guard range, expiration date, and lot# so we can update [facility]. 10/09/19 22 Inactive shingrix step 1 cholecalciferol (vitamin D3) 1,250 mcg (50,000 unit) capsule RxNorm: 587601 Take 1 Capsule(s) Oral QW once a [...] aspart 100 unit/mL (3 mL) subcutaneous RxNorm: 8173927 Inject 10 Unit(s) Subcutaneous QHS every night at bedtime with nighttime snack 10/08/19 22 Inactive Shingrix (PF) 50 mcg/0.5 mL intramuscular suspension, kit RxNorm: 0456456 ADMINISTER 2-DOSE SERIES PER CDC GUIDELINES 10/08/19 22 022 Active Shingrix (PF) 50 mcg/0.5 mL intramuscular suspension, kit RxNorm: 4764406 ADMINISTER 2-DOSE SERIES PER CDC GUIDELINES 10/08/19 22 022 Inactive Novolog Flexpen U-100 Insulin aspart 100 unit/mL (3 mL) subcutaneous RxNorm: 5486943 Inject 36 Unit(s) Subcutaneous TID in addition to sliding scale 10/08/19 22 Inactive Novofine Autocover 30 gauge x 1/3 needle RxNorm: Use 1 Miscellaneous UD as directed Use 1 needle as directed to administer insulin 5 times a day Dx:E11.42. 10/03/19 22 Inactive ok to substitute with any covered alternative pen needle benzoyl peroxide 10 % topical cleanser RxNorm: 942214 Apply 1 Application Topical QD apply to face, wash rinse and dry once daily (may change to QOD if drying) 08/19/19 22 022 Inactive (%covered by insurance) #60ml refill 11 dx: acne benzoyl peroxide 10 % topical cleanser RxNorm: 715367 Apply 1 Application Topical QD apply to face, wash rinse and dry once daily (may change to QOD if drying) 08/19/19 22 022 Inactive (%covered by insurance) #60ml refill 11 dx: acne benzoyl peroxide 10 % topical cleanser RxNorm: 727457 Apply 1 Application Topical QD apply to face, wash rinse and dry once daily (may change to QOD if drying) 08/19/19 22 022 Inactive (%covered by insurance) #60ml refill 11 dx: acne Lyrica 50 mg capsule RxNorm: 866651 Take 1 Capsule(s) Oral QAM every morning Take 1 capsule by mouth once daily 08/19/19 22 022 Inactive benzoyl peroxide 10 % topical cleanser RxNorm: 506377 Apply 1 Application Topical QD apply to face, wash rinse and dry once daily (may change to QOD if drying) 08/19/19 22 022 Inactive (%covered by insurance) #60ml refill 11 dx: acne Lyrica 100 mg capsule RxNorm: 871843 Take 1 Capsule(s) Oral QHS every night at bedtime Take 1 capsule by mouth once daily at bedtime 08/19/19 22 022 Inactive Lyrica 100 mg capsule RxNorm: 304761 Take 1 Capsule(s) Oral QHS every night at bedtime Take 1 capsule by mouth once daily at bedtime 08/16/19 22 Inactive Lyrica 50 mg capsule RxNorm: 630081 Take 1 Capsule(s) Oral QAM every morning Take 1 capsule by mouth once daily 08/16/19 22 022 Inactive Levemir FlexTouch U-100 Insulin 100 unit/mL (3 mL) subcutaneous pen RxNorm: 371088 Inject 86 Unit(s) Subcutaneous BID 08/05/19 22 022 Inactive d/c 83units BID Lyrica 100 mg capsule RxNorm: 972220 Take 1 Capsule(s) Oral QHS every night at bedtime Take 1 capsule by mouth once daily at bedtime 07/14/19 22 022 Inactive Lyrica 50 mg capsule RxNorm: 229287 Take 1 Capsule(s) Oral QAM every morning Take 1 capsule by mouth once daily 07/14/19 22 Inactive Levemir FlexTouch U-100 Insulin 100 unit/mL (3 mL) subcutaneous pen RxNorm: 930131 Inject 83 Unit(s) Subcutaneous BID 07/08/19 22 [...] test strip hydralazine 50 mg tablet RxNorm: 127409 Take 1 Tablet(s) Oral QID 05/05/20 Inactive venlafaxine ER 225 mg tablet,extended release 24 hr RxNorm: 512182 Take 1 Tablet(s) Oral QD 05/05/20 Inactive venlafaxine ER 225 mg tablet,extended release 24 hr RxNorm: 565317 Take 1 Tablet(s) Oral QD 05/05/20 022 Inactive isosorbide mononitrate ER 30 mg tablet,extended release 24 hr RxNorm: 675385 Take 1 Tablet(s) Oral QD 05/05/20 024 Inactive hydralazine 50 mg tablet RxNorm: 452137 Take 1 Tablet(s) Oral QID 05/05/20 Inactive aspirin 81 mg tablet,delayed release RxNorm: 416982 Take 1 Tablet(s) Oral QD 03/31/20 022 Inactive Vitamin D2 1,250 mcg (50,000 unit) capsule RxNorm: 6465096 Take 1 Capsule(s) Oral QW once a week x 12 weeks 03/31/20 Inactive Vitamin D2 1,250 mcg (50,000 unit) capsule RxNorm: 6276500 Take 1 Capsule(s) Oral QW once a week 03/31/20 Inactive Zetia 10 mg tablet RxNorm: 234238 Take 1 Tablet(s) Oral QD 03/31/20 024 Inactive Zetia 10 mg tablet RxNorm: 638545 Take 1 Tablet(s) Oral QD 03/31/20 021 Inactive hydralazine 25 mg tablet RxNorm: 581820 Take 1 Tablet(s) Oral QID 03/31/20 021 Inactive hydralazine 25 mg tablet RxNorm: 478098 Take 1 Tablet(s) Oral QID 03/31/20 021 Inactive hydralazine 10 mg tablet RxNorm: 323472 Take 1 Tablet(s) Oral QID 03/03/20 021 Inactive cephalexin 500 mg tablet RxNorm: 041300 Take 1 Tablet(s) Oral QID 02/27/20 021 Inactive cephalexin 500 mg tablet RxNorm: 604289 Take 1 Tablet(s) Oral QID 02/27/20 021 Inactive lisinopril 40 mg tablet RxNorm: 539697 Take 1 Tablet(s) Oral QD 02/11/20 023 Inactive Eliquis 5 mg tablet RxNorm: 5814481 Take 1 Tablet(s) Oral BID 01/05/20 21 022 Inactive Eliquis 5 mg tablet RxNorm: 8823976 Take 2 Tablet(s) Oral QD 01/01/20 021 Inactive Lyrica 50 mg capsule RxNorm: 652530 Take 1 Capsule(s) Oral QAM every morning 12/24/19 021 Inactive Lyrica 100 mg capsule RxNorm: 990873 Take 1 Capsule(s) Oral QHS every night at bedtime 12/24/19 021 Inactive clotrimazole 1 % topical cream RxNorm: 885138 Apply to right foot and toes Topical BID 12/04/19 21 023 Inactive metoprolol succinate ER 200 mg tablet,extended release 24 hr RxNorm: 540447 Take 1 Tablet(s) Oral QD 12/04/19 023 Inactive ciprofloxacin 500 mg tablet RxNorm: 185444 Take 1 Tablet(s) Oral QD 11/30/19 021 Inactive DX ofloxacin otic drops Accu-Chek Guide test strips RxNorm: USE 1 TO CHECK GLUCOSE 4 TIMES DAILY AND NEEDED 11/15/19 21 023 Inactive Blood Glucose Test strips RxNorm: Use 1 Test Strip QID at PRN 11/05/19 21 023 Inactive E11.42 lisinopril 30 mg tablet RxNorm: 789088 Take 1 Tablet(s) Oral QD 10/30/19 21 021 Inactive lisinopril 20 mg tablet RxNorm: 068135 Take 1 Tablet(s) Oral QD 10/23/19 021 Inactive lisinopril 20 mg tablet RxNorm: 638576 Take 1 Tablet(s) Oral QD 10/23/19 21 021 Inactive lisinopril 10 mg tablet RxNorm: 203602 Take 1 Tablet(s) Oral QD 10/02/19 21 021 Inactive icosapent ethyl 1 gram capsule RxNorm: 0948644 Take 2 Capsule(s) (2 gm) Oral BID with meals 09/12/19 21 024 Inactive Okay to dispense one 2gm tab if you have that available. icosapent ethyl 1 gram capsule RxNorm: 4879733 Take 2 Capsule(s) Oral BID 09/12/19 21 021 Inactive Okay to dispense one 2gm tab if you have that available. amlodipine 10 mg tablet RxNorm: 355960 Take 1 Tablet(s) Oral QD 09/04/19 022 Inactive aspirin 81 mg tablet,delayed release RxNorm: 917895 Take 1 Tablet(s) Oral QD 09/04/19 21 021 Inactive Levemir FlexTouch U-100 Insulin 100 unit/mL (3 mL) subcutaneous pen RxNorm: 038063 Inject 150 Unit(s) Subcutaneous BID 09/04/19 21 022 Inactive venlafaxine ER 150 mg tablet,extended release 24 hr RxNorm: 265707 Take 1 Tablet(s) Oral QD 09/04/19 21 021 Inactive clotrimazole-betame thasone 1 %-0.05 % topical cream RxNorm: 134286 Apply to rash on red area on left abdomen/chest Topical BID 08/10/19 21 021 Inactive amlodipine 5 mg tablet RxNorm: 389162 Take 1 Tablet(s) Oral QD 07/31/19 21 021 Inactive cephalexin 500 mg tablet RxNorm: 821744 Take 1 Tablet(s) Oral BID BID - Twice Daily 07/31/19 21 021 Inactive Start 08/01/20 pantoprazole 40 mg tablet,delayed release RxNorm: 257799 Take 1 Tablet(s) Oral QAM every morning 07/08/19 022 Inactive senna 8.6 mg tablet RxNorm: 848172 Take 1 Tablet(s) Oral QD 07/08/19 21 022 Inactive carbamazepine 200 mg tablet RxNorm: 617849 Take 1 Tablet(s) Oral BID 07/08/19 21 022 Inactive clopidogrel 75 mg tablet RxNorm: 557202 Take 1 Tablet(s) Oral QD 07/08/19 21 021 Inactive Blood Glucose Test strips RxNorm: Use 1 Test Strip QID at PRN 07/08/19 Inactive E11.42 Novolog Flexpen U-100 Insulin aspart 100 unit/mL (3 mL) subcutaneous RxNorm: 0619407 Administer per sliding scale Milliliter(s) Subcutaneous TID 151-200: 10 u; 201-250: 20 u; 251-300: 30 u; 301-350: 40 u; 351-400: 50 u. 07/08/19 022 Inactive lisinopril 5 mg tablet RxNorm: 363912 Take 1 Tablet(s) Oral QD 07/08/19 021 Inactive Novolog Flexpen U-100 Insulin aspart 100 unit/mL (3 mL) subcutaneous RxNorm: 7860499 Inject 85 Unit(s) Subcutaneous TID 07/08/19 022 Inactive pravastatin 80 mg tablet RxNorm: 291315 Take 1 Tablet(s) Oral QHS every night at bedtime 07/08/19 023 Inactive clotrimazole 1 % topical cream RxNorm: 280035 Apply to bilateral groin areas Topical BID 07/08/19 21 022 Inactive metoprolol succinate ER 200 mg tablet,extended release 24 hr RxNorm: 700628 Take 1 Tablet(s) Oral QD 07/08/19 21 021 Inactive Vitamin D3 25 mcg (1,000 unit) tablet RxNorm: 410127 Take 1 Tablet(s) Oral QD 07/08/19 21 021 Inactive isosorbide dinitrate 30 mg tablet RxNorm: 542372 Take 1 Tablet(s) Oral QD 07/08/19 21 021 Inactive Levemir FlexTouch U-100 Insulin 100 unit/mL (3 mL) subcutaneous pen RxNorm: 504383 Inject 140 Unit(s) Subcutaneous BID 07/08/19 21 021 Inactive torsemide 20 mg tablet RxNorm: 695323 Take 1 Tablet(s) Oral QD 07/08/19 21 023 Inactive venlafaxine 75 mg tablet RxNorm: 878308 Take 1 Tablet(s) Oral QD 07/08/19 021 Inactive acetaminophen 500 mg tablet RxNorm: 425440 Take 1 Tablet(s) Oral TID as needed for headache 06/18/19 021 Inactive acetaminophen 500 mg tablet RxNorm: 450254 Take 1 Tablet(s) Oral TID as needed for headache 06/18/19 021 Inactive Lyrica 100 mg capsule RxNorm: 091137 Take 1 Capsule(s) Oral QHS every night at bedtime 06/11/19 21 021 Inactive Lyrica 50 mg capsule RxNorm: 986128 Take 1 Capsule(s) Oral QAM every morning 06/10/19 021 Inactive hydrocortisone 2.5 % topical cream RxNorm: 496189 Apply to bilateral groin creases Topical BID 05/15/20 20 021 Inactive clotrimazole 1 % topical cream RxNorm: 188179 Apply to bilateral groin areas Topical BID 05/15/20 20 021 Inactive Lyrica 50 mg capsule RxNorm: 921749 Take 1 Capsule(s) Oral QAM every morning 05/14/20 20 020 Inactive Lyrica 100 mg capsule RxNorm: 931454 Take 1 Capsule(s) Oral QHS every night [...] Inactive Nystop 100,000 unit/gram topical powder RxNorm: 884082 Apply to abd folds, under breasts and L side of groin Topical BID x 14 days, then BID PRN 04/08/20 20 Inactive dx: yeast dermatitis Lyrica 100 mg capsule RxNorm: 761690 Take 1 Capsule(s) Oral QHS every night at bedtime 03/13/20 20 Inactive Lyrica 50 mg capsule RxNorm: 440780 Take 1 Capsule(s) Oral QAM every morning 03/13/20 20 Inactive ketoconazole 2 % shampoo RxNorm: 311511 Apply Topical two times a week with showers 03/11/20 20 Inactive cholecalciferol (vitamin D3) 50 mcg (2,000 unit) tablet RxNorm: 612414 Take 1 Tablet(s) Oral QD 03/11/20 20 021 Inactive Zetia 10 mg tablet RxNorm: 583919 Take 1 Tablet(s) Oral QD 03/07/20 20 021 Inactive Zetia 10 mg tablet RxNorm: 508474 Take 1 Tablet(s) Oral QD 03/07/20 20 Inactive Lyrica 50 mg capsule RxNorm: 789719 Take 1 Capsule(s) Oral QAM every morning 02/15/20 20 Inactive Lyrica 100 mg capsule RxNorm: 916631 Take 1 Capsule(s) Oral QHS every night at bedtime 02/15/20 20 Inactive Lyrica 100 mg capsule RxNorm: 435030 Take 1 Capsule(s) Oral QHS every night at bedtime 02/15/20 20 Inactive Lyrica 50 mg capsule RxNorm: 111732 Take 1 Capsule(s) Oral QAM every morning 02/15/20 20 020 Inactive metoprolol succinate ER 200 mg tablet,extended release 24 hr RxNorm: 794845 Take 1 Tablet(s) Oral QD 08/12/19 23 Active loperamide 2 mg capsule RxNorm: 600767 Take 1 Capsule(s) Oral QID as needed 06/12/19 22 Active hydralazine 50 mg tablet RxNorm: 515418 Take 1 Tablet(s) Oral QID 08/12/19 23 Active venlafaxine ER 75 mg capsule,extended release 24 hr RxNorm: 844608 Take 3 Capsule(s) Oral QD 06/12/19 22 023 Inactive polyethylene glycol 3350 17 gram/dose oral powder RxNorm: 615218 Take 17=1 capful Gram(s) Oral BID as needed mix with 4-8oz of liquid 06/12/19 22 024 Inactive icosapent ethyl 1 gram capsule RxNorm: 7247355 Take 2 Capsule(s) (2 gm) Oral BID with meals 10/07/19 23 023 Inactive Okay to dispense one 2gm tab if you have that available. Levemir FlexTouch U-100 Insulin 100 unit/mL (3 mL) subcutaneous pen RxNorm: 566233 Inject 80 Unit(s) Subcutaneous BID 07/14/19 23 023 Inactive Novolog Flexpen U-100 Insulin aspart 100 unit/mL (3 mL) subcutaneous RxNorm: 1939213 Insert 30 Unit(s) Subcutaneous TID with meals [...] Summary Completed 02/08/2024 Appointment: Brian Munson WPtel: [address] [place], [place] [phone] F/U 01/11/2024 Appointment: Sandra Clark WPtel: [address] [place], [place] [phone] Telehealth Psych Follow Up 12/09 Appointment: Tapan Shirley WPtel: [address] [place], [place] [phone] [facility] 10/26/2022 Referral: [facility] WPtel: [address], [address] [id number] Referral Records Received 09/21/2022 Appointment: Tapan Shirley WPtel: [address] [facility] [address] [id number] [place] F/U 08/11/2022 Appointment: Tapan Shirley WPtel: [address] [facility] [address] [id number] [place] F/U 07/14/2022 Appointment: Tapan Shirley WPtel: [address] [facility] [address] [id number] [place] F/U 02/10/2022 Referral: [facility] WPtel: [address] [facility] [address] [id number] [place] Referral Completed 05/28/2021 Referral: General Cardiology [...] Sister Jyotsna involved in his care cell# [phone] Guardian: Giulia (tapna met in person 09/01/21), now has Lexii (same group as giulia)AWV 9.. Lab Schedule: /September*September (CBC with diff, [...] Martines note from 11.08.2023 at [facility] (follow up 6 months)Colon & Rectal Surgery visit scheduled for 03/08/24 with Matilde Pérez PA-C. 02/08/2024
--- OUTSIDE RECORDS SUMMARY | 2024-02-19 14:19 | XMS_ITS | CCD ---
Author Name Cecilio Druham ie Address [address] [place] [address] Phone Organization [facility] Phone Care Team Providers Care Shot Polisher Name Role Phone Arpit MENDOZA Harrison Primary Care Provider Leona vailable Arpit ARLENParker Harrison Chronic Care Management U navailable Summary Purpose DataExchange Insurance Providers Payer name Policy type / Coverage type Covered democrat ID Effective Begin Date Effective End Date [place] Part B [id number] Unknown Unknown [place] Part B [id number] Unknown Unknown Family history Sister Brittany Suggs Diagnosis Age At Onset No Family Disease Entered N/A Runs in the family Diagnosis Age At Onset No Known Diseases N/A Sister Blanka Mcduffie Diagnosis Age At Onset No Family Disease Entered N/A Social History Social History Element Codes Description Effec tive Dates Tobacco history SNOMED CT: 292318420 Never smoker 01/16 Sexually Active? Unknown No [...] Single 10/07/2021 Living arrangements Unknown Residential 09/03/[address]: 082541387 No Alcohol Consum ption 09/02/2020 Allergies, Adverse Reactions, Alerts Substance Reaction Codes Entered Date Inactivated Date Status * NO KNOWN FOOD ALLERGIES Unknown 07/13/2023 No Inactive Date Active LISINOPRIL RxNorm: 20505 02/12/2020 No Inactive Da te Active Metformin [...] E78. 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) use of insulin ICD-10: Z79.4 [...] Fill Instructions pregabalin 100 mg capsule RxNorm: 669438 Take 1 Capsule(s) Oral QAM every morning 02/07/20 24 024 Active isosorbide mononitrate ER 60 mg tablet,extended release 24 hr RxNorm: 285970 Take 1 Tablet(s) Oral QD 02/01/20 24 025 Active aripiprazole 15 mg tablet RxNorm: 668405 Take 1/2 Tablet(s) Oral QD 02/01/20 24 025 Active torsemide 20 mg tablet RxNorm: 731861 1 TAB ORALLY DAILY (DX: EDEMA) 01/27/20 24 No Stop Date Active potassium chloride ER 20 mEq tablet,extended release(part/cryst) RxNorm: 3872886 2 TABS (40MEQ) ORALLY TWICE DAILY (DX: HYPOKALEMIA) 01/27/20 No Stop Date Active cephalexin 500 mg capsule RxNorm: 504162 Take 1 Capsule(s) Oral QID 12/17/19 24 Inactive cephalexin 500 mg capsule RxNorm: 264689 Take 1 Capsule(s) Oral QID 12/17/19 24 Inactive acetaminophen 500 mg tablet RxNorm: 874329 (MAX APAP:4GM/24HR) Take 1 Tablet(s) Oral TID as needed for pain 12/10/19 24 Active torsemide 20 mg tablet RxNorm: 061766 Take 1 Tablet(s) Oral QD 10/26/19 24 024 Inactive potassium chloride ER 20 mEq tablet,extended release RxNorm: 19800522 Take 2 Tablet(s) Oral BID 10/26/19 24 Active torsemide 20 mg tablet RxNorm: 217077 Take 1 Tablet(s) Oral QD 10/26/19 24 Inactive potassium chloride ER 20 mEq tablet,extended release RxNorm: 749452 Take 2 Tablet(s) Oral BID 10/26/19 24 Inactive Artificial Tears (PF) 0.1 %-0.3 % drops in a dropperette RxNorm: 627949 Apply 1-2 Drop(s) Both eyes BID as needed 09/28/19 24 025 Active erythromycin 5 mg/gram (0.5 %) eye ointment RxNorm: 669271 Apply 1 Application Both eyes QHS every night at bedtime Instill ~1 cm ribbon into affected eye 09/28/19 24 Inactive Artificial Tears (PF) 0.1 %-0.3 % drops in a dropperette RxNorm: 428498 Apply 1-2 Drop(s) Both eyes BID as needed 09/28/19 24 024 Inactive erythromycin 5 mg/gram (0.5 %) eye ointment RxNorm: 724474 Apply 1 Application Both eyes QHS every night at bedtime Instill ~1 cm ribbon into affected eye 09/28/19 24 Inactive acetaminophen 500 mg tablet RxNorm: 835377 (MAX APAP:4GM/24HR) Take 1 Tablet(s) Oral TID as needed for pain 09/24/19 24 024 Inactive carvedilol 25 mg tablet RxNorm: 489590 Take 1 Tablet(s) Oral QD 09/08/19 24 No Stop Date Active pregabalin 100 mg capsule RxNorm: 417905 Take 1 Capsule(s) Oral QAM every morning 09/07/19 24 024 Inactive rosuvastatin 40 mg tablet RxNorm: 995257 Take 1 Tablet(s) Oral QPM every evening 07/13/19 24 No Stop Date Active ezetimibe 10 mg tablet RxNorm: 972697 Take 1 Tablet(s) Oral QD 07/13/19 24 No Stop Date Active bisacodyl 10 mg rectal suppository RxNorm: 619566 Insert 1 Suppository Rectal QD as needed 07/13/19 24 No Stop Date Active polyethylene glycol 3350 17 gram/dose oral powder RxNorm: 557452 Take 17 Gram(s) Oral BID as needed mix in 4-8ox water 07/13/19 24 No Stop Date Active ketoconazole 2 % shampoo RxNorm: 776017 Apply 1 Application Topical UD as directed 07/13/19 24 No Stop Date Active Ozempic 1 mg/dose (4 mg/3 mL) subcutaneous pen injector RxNorm: 6190308 Inject 1 Milligram(s) Subcutaneous QW once a week 07/13/19 24 No Stop Date Active Guaifenesin AC 10 mg-100 mg/5 mL oral liquid RxNorm: 169620 Take 10 Milliliter(s) Oral Q4H every four hours as needed 07/13/19 24 No Stop Date Active ammonium lactate 12 % topical cream RxNorm: 102365 Apply 1 Application Topical BID 07/13/19 24 No Stop Date Active hydrocortisone 2.5 % topical cream RxNorm: 663441 Apply 1 Application Topical BID as needed 07/13/19 24 No Stop Date Active rosuvastatin 20 mg sprinkle capsule RxNorm: 7251619 Take 1 Capsule(s) Oral QD 07/13/19 24 No Stop Date Active Vascepa 1 gram capsule RxNorm: 4367032 Take 2 Capsule(s) Oral BID 07/13/19 24 No Stop Date Active venlafaxine ER 75 mg capsule,extended release 24 hr RxNorm: 432464 Take 3 Capsule(s) Oral QD 07/13/19 24 No Stop Date Active aripiprazole 15 mg tablet RxNorm: 438503 Take 1/2 Tablet(s) Oral QD 07/13/19 24 024 Inactive isosorbide mononitrate ER 60 mg tablet,extended release 24 hr RxNorm: 948625 Take 1 Tablet(s) Oral QD 07/13/19 24 024 Inactive Basaglar KwikPen U-100 Insulin 100 unit/mL (3 mL) subcutaneous RxNorm: 5514140 Inject 30U SubQ twice daily 07/07/19 24 024 Inactive Please dispense one month supply. Basaglar KwikPen U-100 Insulin 100 unit/mL (3 mL) subcutaneous RxNorm: 5127256 Inject 30U SubQ twice daily 07/07/19 24 024 Inactive Please dispense one month supply. pregabalin 150 mg capsule RxNorm: 479321 Take 1 Capsule(s) Oral QHS every night at bedtime 07/05/19 24 024 Inactive pregabalin 150 mg capsule RxNorm: 667534 Take 1 Capsule(s) Oral QHS every night at bedtime 07/05/19 24 024 Inactive polyethylene glycol 3350 17 gram/dose oral powder RxNorm: 564333 Take 1 Packet Oral QD as needed (1 packet = 17g) mix with 4-8oz of liquid 06/15/19 24 024 Inactive bisacodyl 10 mg rectal suppository RxNorm: 927101 Insert one suppository per rectum once daily as needed for constipation 06/15/19 24 024 Inactive bisacodyl 10 mg rectal suppository RxNorm: 884339 Insert one suppository per rectum once daily as needed for constipation 06/15/19 24 024 Inactive pregabalin 100 mg capsule RxNorm: 393185 Take 1 Capsule(s) Oral QAM every morning 04/27/20 23 024 Inactive Levemir FlexPen 100 unit/mL (3 mL) solution subcutaneous insulin pen RxNorm: 549019 Inject 30 Unit(s) Subcutaneous BID 04/27/20 23 024 Inactive rosuvastatin 40 mg tablet RxNorm: 164085 Take 1 Tablet(s) Oral QPM every evening 04/16/20 024 Inactive D/C rosuvastatin 20mg venlafaxine ER 75 mg capsule,extended release 24 hr RxNorm: 737416 Take 3 Capsule(s) Oral QD 04/14/20 023 Inactive pregabalin 100 mg capsule RxNorm: 548872 Take 1 Capsule(s) Oral QAM every morning [...] meter clotrimazole 1 % topical cream RxNorm: 671792 Take apply topically to abdominal folds twice daily for 14 days 03/12/20 024 Inactive Ozempic 1 mg/dose (4 mg/3 mL) subcutaneous pen injector RxNorm: 6862987 Inject 1 Milligram(s) Subcutaneous QW once a week 03/11/20 023 Inactive rosuvastatin 20 mg tablet RxNorm: 771270 Take 1 Tablet(s) Oral QD 02/26/20 23 023 Inactive d/c pravastatin 80mg Ozempic 1 mg/dose (4 mg/3 mL) subcutaneous pen injector RxNorm: 3815816 Inject 1 Milligram(s) Subcutaneous QW once a week 02/20/20 23 023 Inactive pregabalin 150 mg capsule RxNorm: 714332 Take 1 Capsule(s) Oral HS at bed time 02/19/20 23 023 Inactive pregabalin 100 mg capsule RxNorm: 359471 Take 1 Capsule(s) Oral QAM every morning 02/18/20 23 023 Inactive venlafaxine ER 75 mg capsule,extended release 24 hr RxNorm: 119933 Take 3 Capsule(s) Oral QD 02/04/20 23 023 Inactive FreeStyle Chema 2 Sensor kit RxNorm: use as directed 02/04/20 23 023 Inactive FreeStyle Chema 2 Sensor kit RxNorm: use as directed 02/04/20 23 024 Inactive fluconazole 150 mg tablet RxNorm: 467213 Take 1 Tablet(s) Oral on day 3 and on day 6 02/03/20 024 Inactive chlorthalidone 25 mg tablet RxNorm: 045498 Take 1 Tablet(s) Oral QAM every morning 02/03/20 No Stop Date Active venlafaxine ER 150 mg capsule,extended release 24 hr RxNorm: 015897 Take 1 Capsule(s) Oral QD 02/03/20 23 023 Inactive acetaminophen 500 mg tablet RxNorm: 297733 1 TABLET ORALLY 3 TIMES DAILY (MAX APAP:4GM/24HR) 12/15/19 23 023 Inactive clotrimazole 1 % topical cream RxNorm: 328557 apply 1g topically to top of feet and in between toes BID 12/09/19 23 023 Inactive potassium chloride ER 20 mEq tablet,extended release RxNorm: 344163 Take 1 Tablet(s) Oral BID 12/09/19 23 024 Inactive d/c 20mEq once daily (sent from hospital) nystatin 100,000 unit/gram topical powder RxNorm: 722984 APPLY TO AFFECTED AREAS TOPICALLY 2 TIMES DAILY 11/21/19 23 024 Inactive Nystop 100,000 unit/gram topical powder RxNorm: 593089 Apply to abd folds, under breasts and L side of groin Topical BID x 14 days, then BID PRN 11/20/19 23 023 Inactive dx: yeast dermatitis Bengay Ultra Strength 4 %-30 %-10 % topical cream RxNorm: 655510 Apply 1 Gram(s) Topical QID PRN to feet and legs for neuropathic pain 11/11/19 23 024 Inactive clotrimazole 1 % topical cream RxNorm: 450169 Apply 1/2 Gram(s) Topical BID Apply to affected areas of groin, periarea, and abdominal topically 2 times daily 11/10/19 023 Inactive hydrocortisone 2.5 % topical cream RxNorm: 678071 Apply 1/2 Gram(s) Topical BID as needed 11/10/19 024 Inactive Humulin R U-500 (Concentrated) Insulin 500 unit/mL subcutaneous soln RxNorm: 329446 Inject 100 Unit(s) Subcutaneous TID 10/07/19 024 Inactive Levemir FlexPen 100 unit/mL (3 mL) solution subcutaneous insulin pen RxNorm: 309072 Inject 30 Unit(s) Subcutaneous BID 10/07/19 023 Inactive Ozempic 0.25 mg or 0.5 mg (2 mg/3 mL) subcutaneous pen injector RxNorm: 0700191 Inject 1/2 Milligram(s) Subcutaneous QW once a week 10/07/19 024 Inactive aripiprazole 15 mg tablet RxNorm: 202670 1/2 TAB (7.5MG) ORALLY DAILY (DX:MAJOR DEPRESSIVE DISORDER) 09/23/19 023 Inactive Lancets,Thin 28 gauge RxNorm: Use 1 as directed QID 09/15/19 23 024 Inactive Accu-Chek Guide test strips RxNorm: Use 1 Test Strip QID 09/15/19 023 Inactive ok to substitute with any covered alternative test strip torsemide 20 mg tablet RxNorm: 676039 Take 1 Tablet(s) Oral BID 09/09/19 024 Inactive d/c once daily dosing carvedilol 25 mg tablet RxNorm: 931203 Take 1 Tablet(s) Oral QD 08/25/19 024 Inactive pregabalin 150 mg capsule RxNorm: 737471 1 Capsule(s) Oral HS at bed time 08/18/19 023 Inactive pregabalin 100 mg capsule RxNorm: 035186 1 Capsule(s) Oral QAM every morning 08/18/19 023 Inactive carvedilol 25 mg tablet RxNorm: 612369 1 Tablet(s) Oral QD 07/28/19 23 023 Inactive lisinopril 20 mg tablet RxNorm: 656745 Give 1 Tablet(s) Oral QD 07/28/19 23 023 Inactive Lyrica 150 mg capsule RxNorm: 264577 Take 1 Capsule(s) Oral QHS every night at bedtime 07/19/19 23 023 Inactive d/c 100mg dose Diflucan 150 mg tablet RxNorm: 601075 Take 1 Tablet(s) Oral QD repeat on day 3 and 6 07/19/19 23 023 Inactive pregabalin 100 mg capsule RxNorm: 001671 Take 1 Capsule(s) Oral QAM every morning 07/19/19 023 Inactive gatifloxacin 0.5 % eye drops RxNorm: 424995 Instill 1 Drop(s) as directed TID Instill 1 drop in to affected eye(s) starting 1 day prior to surgery and continue until gone (do not exceed 4 weeks). 07/13/19 23 023 Inactive carvedilol 25 mg tablet RxNorm: 395621 2 Tablet(s) Oral BID 07/13/19 23 023 Inactive Humulin R Regular U-100 Insulin 100 unit/mL injection solution RxNorm: 887832 85 Unit(s) Injection TID 07/13/19 23 023 Inactive ketorolac 0.5 % eye drops RxNorm: 293316 Instill 1 Drop(s) as directed QID Instill 1 drop into affected eye(s) 4 times daily starting 1 day prior to surgery and continue until gone (do not exceed 4 weeks). 07/13/19 23 023 Inactive Diflucan 150 mg tablet RxNorm: 806318 Take 1 Tablet(s) Oral QD repeat on day 3 and 6 06/30/19 23 023 Inactive Accu-Chek Guide test strips RxNorm: Use 1 Test Strip QID Use 1 test strip to monitor blood glucose 4 times daily and as needed. Dx:E11.42. 06/23/19 23 023 Inactive ok to substitute with any covered alternative test strip dextromethorphan-gu aifenesin 10 mg-100 mg/5 mL oral liquid RxNorm: 338863 Take 10 Milliliter(s) Oral every 4 hours as needed for cough 06/19/19 23 023 Inactive dextromethorphan-gu aifenesin 10 mg-100 mg/5 mL oral liquid RxNorm: 613964 Take 10 Milliliter(s) Oral every 4 hours as needed for cough 06/19/19 023 Inactive Lyrica 150 mg capsule RxNorm: 077965 Take 1 Capsule(s) Oral QHS every night at bedtime 06/18/19 023 Inactive d/c 100mg dose aripiprazole 15 mg tablet RxNorm: 999501 /2 TAB (7.5MG) ORALLY DAILY (DX:MAJOR DEPRESSIVE DISORDER) 06/05/19 023 Inactive pregabalin 100 mg capsule RxNorm: 112082 1 Capsule(s) Oral QAM every morning 06/02/19 023 Inactive Banophen 50 mg capsule RxNorm: 0977132 Take 1 Capsule(s) Oral Q6H every 6 hours as needed 05/19/19 23 No Stop Date Active Novolog Flexpen U-100 Insulin aspart 100 unit/mL (3 mL) subcutaneous RxNorm: 1254359 Inject 10 Unit(s) Subcutaneous QHS every night at bedtime with nighttime snack 04/08/20 22 022 Inactive Novolog Flexpen U-100 Insulin aspart 100 unit/mL (3 mL) subcutaneous RxNorm: 5487657 Inject 42 Unit(s) Subcutaneous TID in addition to sliding scale 04/08/20 022 Inactive d/c 36u albuterol sulfate HFA 90 mcg/actuation aerosol inhaler RxNorm: 6293448 Take 2 Puff(s) Inhalation Q4H every four hours as needed as needed for SOB, cough, or wheezing 04/07/20 030 Active Banophen 50 mg capsule RxNorm: 8288670 Take 1 Capsule(s) Oral Q6H every 6 hours as needed 04/06/20 023 Inactive diphenhydramine 50 mg tablet RxNorm: 0251542 Take 1 Tablet(s) Oral Q6H every 6 hours as needed 04/06/20 22 022 Inactive diphenhydramine 50 mg tablet RxNorm: 2837275 1 Tablet(s) Oral Q6H every 6 hours as needed 04/06/20 22 022 Inactive Abilify 15 mg tablet RxNorm: 541562 1/2 Tablet(s) Oral QD 03/10/20 22 023 Inactive Shingrix (PF) 50 mcg/0.5 mL intramuscular suspension, kit RxNorm: 1548436 Administer 1/2 Milliliter(s) Intramuscular QD one time shingrix step 2 ( step 1 given 11/04/21) WITH needle - Nursing please administer upon arrival and once administered post a bridge message with date of administration, copper plater, expiration date, and lot# so we can update [facility] 02/18/20 22 022 Inactive dispense with needle Shingrix (PF) 50 mcg/0.5 mL intramuscular suspension, kit RxNorm: 0531447 Administer 1/2 Milliliter(s) Intramuscular QD one time shingrix step 2 ( step 1 given 11/04/21) WITH needle - Nursing please administer upon arrival and once administered post a bridge message with date of administration, copper plater, expiration date, and lot# so we can update [facility] 02/18/20 22 022 Inactive dispense with needle polyethylene glycol 3350 17 gram/dose oral powder RxNorm: 364544 Take 17=1 capful Gram(s) Oral QD mix with 4-8oz of liquid 01/08/20 22 023 Inactive take this in addition to BID prn order Lyrica 100 mg capsule RxNorm: 232300 Take 1 Capsule(s) Oral QAM every morning 01/08/20 22 022 Inactive d/c 50mg dose acetaminophen 500 mg tablet RxNorm: 023056 Take 1 Tablet(s) Oral TID 01/08/20 22 022 Inactive d/c PRN order Lyrica 150 mg capsule RxNorm: 825737 Take 1 Capsule(s) Oral QHS every night at bedtime 01/08/20 22 023 Inactive d/c 100mg dose Abilify 5 mg tablet RxNorm: 782764 Take 1 Tablet(s) Oral QD take 1 tab po QD #30 refill 5 dx: MDD 12/12/19 22 022 Inactive Abilify 5 mg tablet RxNorm: 750635 Take 1 Tablet(s) Oral QD take 1 tab po QD #30 refill 5 dx: MDD 12/12/19 22 022 Inactive Novolog Flexpen U-100 Insulin aspart 100 unit/mL (3 mL) subcutaneous RxNorm: 6813513 Inject 42 Unit(s) Subcutaneous TID in addition to sliding scale 12/10/19 22 022 Inactive d/c 36u chlorthalidone 25 mg tablet RxNorm: 772151 Take 1 Tablet(s) Oral QAM every morning 12/10/19 22 023 Inactive pregabalin 50 mg capsule RxNorm: 539765 Take 1 Capsule(s) Oral QAM every morning 11/12/19 22 022 Inactive tetanus-diphtheria toxoids-Td 2 Lf unit-2 Lf unit/0.5 mL IM suspension RxNorm: 139 Take 0.5 Miscellaneous Intramuscular 11/12/19 22 022 Inactive need tdap - nursing to administer upon arrival pregabalin 50 mg capsule RxNorm: 176586 Take 1 Capsule(s) Oral QAM every morning 10/16/19 22 022 Inactive pregabalin 50 mg capsule RxNorm: 893665 Take 1 Capsule(s) Oral QAM every morning 10/16/19 22 022 Inactive pregabalin 50 mg capsule RxNorm: 852930 1 Capsule(s) Oral QAM every morning 10/15/19 22 022 Inactive Shingrix (PF) 50 mcg/0.5 mL intramuscular suspension, kit RxNorm: 0574218 Administer 1/2 Milliliter(s) Intramuscular one time Nursing please administer upon arrival and once administered post a bridge message with date of administration, copper plater, expiration date, and lot# so we can update [facility]. 10/09/19 22 022 Inactive shingrix step 1 Shingrix (PF) 50 mcg/0.5 mL intramuscular suspension, kit RxNorm: 7693565 Administer 1/2 Milliliter(s) Intramuscular one time Nursing please administer upon arrival and once administered post a bridge message with date of administration, copper plater, expiration date, and lot# so we can update [facility]. 10/09/19 22 Inactive shingrix step 1 cholecalciferol (vitamin D3) 1,250 mcg (50,000 unit) capsule RxNorm: 282894 Take 1 Capsule(s) Oral QW once a [...] aspart 100 unit/mL (3 mL) subcutaneous RxNorm: 5143553 Inject 10 Unit(s) Subcutaneous QHS every night at bedtime with nighttime snack 10/08/19 22 Inactive Shingrix (PF) 50 mcg/0.5 mL intramuscular suspension, kit RxNorm: 7312439 ADMINISTER 2-DOSE SERIES PER CDC GUIDELINES 10/08/19 22 022 Active Shingrix (PF) 50 mcg/0.5 mL intramuscular suspension, kit RxNorm: 4923052 ADMINISTER 2-DOSE SERIES PER CDC GUIDELINES 10/08/19 22 022 Inactive Novolog Flexpen U-100 Insulin aspart 100 unit/mL (3 mL) subcutaneous RxNorm: 2146640 Inject 36 Unit(s) Subcutaneous TID in addition to sliding scale 10/08/19 22 Inactive Novofine Autocover 30 gauge x 1/3 needle RxNorm: Use 1 Miscellaneous UD as directed Use 1 needle as directed to administer insulin 5 times a day Dx:E11.42. 10/03/19 22 Inactive ok to substitute with any covered alternative pen needle benzoyl peroxide 10 % topical cleanser RxNorm: 692160 Apply 1 Application Topical QD apply to face, wash rinse and dry once daily (may change to QOD if drying) 08/19/19 22 022 Inactive (%covered by insurance) #60ml refill 11 dx: acne benzoyl peroxide 10 % topical cleanser RxNorm: 066900 Apply 1 Application Topical QD apply to face, wash rinse and dry once daily (may change to QOD if drying) 08/19/19 22 022 Inactive (%covered by insurance) #60ml refill 11 dx: acne benzoyl peroxide 10 % topical cleanser RxNorm: 272858 Apply 1 Application Topical QD apply to face, wash rinse and dry once daily (may change to QOD if drying) 08/19/19 22 022 Inactive (%covered by insurance) #60ml refill 11 dx: acne Lyrica 50 mg capsule RxNorm: 749357 Take 1 Capsule(s) Oral QAM every morning Take 1 capsule by mouth once daily 08/19/19 22 022 Inactive benzoyl peroxide 10 % topical cleanser RxNorm: 317089 Apply 1 Application Topical QD apply to face, wash rinse and dry once daily (may change to QOD if drying) 08/19/19 22 022 Inactive (%covered by insurance) #60ml refill 11 dx: acne Lyrica 100 mg capsule RxNorm: 850636 Take 1 Capsule(s) Oral QHS every night at bedtime Take 1 capsule by mouth once daily at bedtime 08/19/19 22 022 Inactive Lyrica 100 mg capsule RxNorm: 721453 Take 1 Capsule(s) Oral QHS every night at bedtime Take 1 capsule by mouth once daily at bedtime 08/16/19 22 Inactive Lyrica 50 mg capsule RxNorm: 885074 Take 1 Capsule(s) Oral QAM every morning Take 1 capsule by mouth once daily 08/16/19 22 022 Inactive Levemir FlexTouch U-100 Insulin 100 unit/mL (3 mL) subcutaneous pen RxNorm: 077233 Inject 86 Unit(s) Subcutaneous BID 08/05/19 22 022 Inactive d/c 83units BID Lyrica 100 mg capsule RxNorm: 589771 Take 1 Capsule(s) Oral QHS every night at bedtime Take 1 capsule by mouth once daily at bedtime 07/14/19 22 022 Inactive Lyrica 50 mg capsule RxNorm: 251549 Take 1 Capsule(s) Oral QAM every morning Take 1 capsule by mouth once daily 07/14/19 22 Inactive Levemir FlexTouch U-100 Insulin 100 unit/mL (3 mL) subcutaneous pen RxNorm: 760336 Inject 83 Unit(s) Subcutaneous BID 07/08/19 22 [...] test strip hydralazine 50 mg tablet RxNorm: 409107 Take 1 Tablet(s) Oral QID 05/05/20 Inactive venlafaxine ER 225 mg tablet,extended release 24 hr RxNorm: 248089 Take 1 Tablet(s) Oral QD 05/05/20 Inactive venlafaxine ER 225 mg tablet,extended release 24 hr RxNorm: 824558 Take 1 Tablet(s) Oral QD 05/05/20 022 Inactive isosorbide mononitrate ER 30 mg tablet,extended release 24 hr RxNorm: 854657 Take 1 Tablet(s) Oral QD 05/05/20 024 Inactive hydralazine 50 mg tablet RxNorm: 327947 Take 1 Tablet(s) Oral QID 05/05/20 Inactive aspirin 81 mg tablet,delayed release RxNorm: 343405 Take 1 Tablet(s) Oral QD 03/31/20 022 Inactive Vitamin D2 1,250 mcg (50,000 unit) capsule RxNorm: 6927123 Take 1 Capsule(s) Oral QW once a week x 12 weeks 03/31/20 Inactive Vitamin D2 1,250 mcg (50,000 unit) capsule RxNorm: 2961613 Take 1 Capsule(s) Oral QW once a week 03/31/20 Inactive Zetia 10 mg tablet RxNorm: 518033 Take 1 Tablet(s) Oral QD 03/31/20 024 Inactive Zetia 10 mg tablet RxNorm: 556922 Take 1 Tablet(s) Oral QD 03/31/20 021 Inactive hydralazine 25 mg tablet RxNorm: 356812 Take 1 Tablet(s) Oral QID 03/31/20 021 Inactive hydralazine 25 mg tablet RxNorm: 536752 Take 1 Tablet(s) Oral QID 03/31/20 021 Inactive hydralazine 10 mg tablet RxNorm: 560260 Take 1 Tablet(s) Oral QID 03/03/20 021 Inactive cephalexin 500 mg tablet RxNorm: 342949 Take 1 Tablet(s) Oral QID 02/27/20 021 Inactive cephalexin 500 mg tablet RxNorm: 815125 Take 1 Tablet(s) Oral QID 02/27/20 021 Inactive lisinopril 40 mg tablet RxNorm: 195682 Take 1 Tablet(s) Oral QD 02/11/20 023 Inactive Eliquis 5 mg tablet RxNorm: 9309172 Take 1 Tablet(s) Oral BID 01/05/20 21 022 Inactive Eliquis 5 mg tablet RxNorm: 4406480 Take 2 Tablet(s) Oral QD 01/01/20 021 Inactive Lyrica 50 mg capsule RxNorm: 420539 Take 1 Capsule(s) Oral QAM every morning 12/24/19 021 Inactive Lyrica 100 mg capsule RxNorm: 433942 Take 1 Capsule(s) Oral QHS every night at bedtime 12/24/19 021 Inactive clotrimazole 1 % topical cream RxNorm: 876527 Apply to right foot and toes Topical BID 12/04/19 21 023 Inactive metoprolol succinate ER 200 mg tablet,extended release 24 hr RxNorm: 195146 Take 1 Tablet(s) Oral QD 12/04/19 023 Inactive ciprofloxacin 500 mg tablet RxNorm: 499634 Take 1 Tablet(s) Oral QD 11/30/19 021 Inactive DX ofloxacin otic drops Accu-Chek Guide test strips RxNorm: USE 1 TO CHECK GLUCOSE 4 TIMES DAILY AND NEEDED 11/15/19 21 023 Inactive Blood Glucose Test strips RxNorm: Use 1 Test Strip QID at PRN 11/05/19 21 023 Inactive E11.42 lisinopril 30 mg tablet RxNorm: 326613 Take 1 Tablet(s) Oral QD 10/30/19 21 021 Inactive lisinopril 20 mg tablet RxNorm: 874066 Take 1 Tablet(s) Oral QD 10/23/19 021 Inactive lisinopril 20 mg tablet RxNorm: 266890 Take 1 Tablet(s) Oral QD 10/23/19 21 021 Inactive lisinopril 10 mg tablet RxNorm: 308879 Take 1 Tablet(s) Oral QD 10/02/19 21 021 Inactive icosapent ethyl 1 gram capsule RxNorm: 9461710 Take 2 Capsule(s) (2 gm) Oral BID with meals 09/12/19 21 024 Inactive Okay to dispense one 2gm tab if you have that available. icosapent ethyl 1 gram capsule RxNorm: 6579210 Take 2 Capsule(s) Oral BID 09/12/19 21 021 Inactive Okay to dispense one 2gm tab if you have that available. amlodipine 10 mg tablet RxNorm: 412105 Take 1 Tablet(s) Oral QD 09/04/19 022 Inactive aspirin 81 mg tablet,delayed release RxNorm: 114299 Take 1 Tablet(s) Oral QD 09/04/19 21 021 Inactive Levemir FlexTouch U-100 Insulin 100 unit/mL (3 mL) subcutaneous pen RxNorm: 940421 Inject 150 Unit(s) Subcutaneous BID 09/04/19 21 022 Inactive venlafaxine ER 150 mg tablet,extended release 24 hr RxNorm: 245555 Take 1 Tablet(s) Oral QD 09/04/19 21 021 Inactive clotrimazole-betame thasone 1 %-0.05 % topical cream RxNorm: 901334 Apply to rash on red area on left abdomen/chest Topical BID 08/10/19 21 021 Inactive amlodipine 5 mg tablet RxNorm: 326612 Take 1 Tablet(s) Oral QD 07/31/19 21 021 Inactive cephalexin 500 mg tablet RxNorm: 849853 Take 1 Tablet(s) Oral BID BID - Twice Daily 07/31/19 21 021 Inactive Start 08/01/20 pantoprazole 40 mg tablet,delayed release RxNorm: 468342 Take 1 Tablet(s) Oral QAM every morning 07/08/19 022 Inactive senna 8.6 mg tablet RxNorm: 868780 Take 1 Tablet(s) Oral QD 07/08/19 21 022 Inactive carbamazepine 200 mg tablet RxNorm: 819996 Take 1 Tablet(s) Oral BID 07/08/19 21 022 Inactive clopidogrel 75 mg tablet RxNorm: 512025 Take 1 Tablet(s) Oral QD 07/08/19 21 021 Inactive Blood Glucose Test strips RxNorm: Use 1 Test Strip QID at PRN 07/08/19 Inactive E11.42 Novolog Flexpen U-100 Insulin aspart 100 unit/mL (3 mL) subcutaneous RxNorm: 3431553 Administer per sliding scale Milliliter(s) Subcutaneous TID 151-200: 10 u; 201-250: 20 u; 251-300: 30 u; 301-350: 40 u; 351-400: 50 u. 07/08/19 022 Inactive lisinopril 5 mg tablet RxNorm: 256460 Take 1 Tablet(s) Oral QD 07/08/19 021 Inactive Novolog Flexpen U-100 Insulin aspart 100 unit/mL (3 mL) subcutaneous RxNorm: 5676896 Inject 85 Unit(s) Subcutaneous TID 07/08/19 022 Inactive pravastatin 80 mg tablet RxNorm: 769198 Take 1 Tablet(s) Oral QHS every night at bedtime 07/08/19 023 Inactive clotrimazole 1 % topical cream RxNorm: 968016 Apply to bilateral groin areas Topical BID 07/08/19 21 022 Inactive metoprolol succinate ER 200 mg tablet,extended release 24 hr RxNorm: 996162 Take 1 Tablet(s) Oral QD 07/08/19 21 021 Inactive Vitamin D3 25 mcg (1,000 unit) tablet RxNorm: 523954 Take 1 Tablet(s) Oral QD 07/08/19 21 021 Inactive isosorbide dinitrate 30 mg tablet RxNorm: 108767 Take 1 Tablet(s) Oral QD 07/08/19 21 021 Inactive Levemir FlexTouch U-100 Insulin 100 unit/mL (3 mL) subcutaneous pen RxNorm: 437305 Inject 140 Unit(s) Subcutaneous BID 07/08/19 21 021 Inactive torsemide 20 mg tablet RxNorm: 191567 Take 1 Tablet(s) Oral QD 07/08/19 21 023 Inactive venlafaxine 75 mg tablet RxNorm: 489097 Take 1 Tablet(s) Oral QD 07/08/19 021 Inactive acetaminophen 500 mg tablet RxNorm: 632417 Take 1 Tablet(s) Oral TID as needed for headache 06/18/19 021 Inactive acetaminophen 500 mg tablet RxNorm: 120932 Take 1 Tablet(s) Oral TID as needed for headache 06/18/19 021 Inactive Lyrica 100 mg capsule RxNorm: 597356 Take 1 Capsule(s) Oral QHS every night at bedtime 06/11/19 21 021 Inactive Lyrica 50 mg capsule RxNorm: 355077 Take 1 Capsule(s) Oral QAM every morning 06/10/19 021 Inactive hydrocortisone 2.5 % topical cream RxNorm: 675148 Apply to bilateral groin creases Topical BID 05/15/20 20 021 Inactive clotrimazole 1 % topical cream RxNorm: 257407 Apply to bilateral groin areas Topical BID 05/15/20 20 021 Inactive Lyrica 50 mg capsule RxNorm: 418451 Take 1 Capsule(s) Oral QAM every morning 05/14/20 20 020 Inactive Lyrica 100 mg capsule RxNorm: 197728 Take 1 Capsule(s) Oral QHS every night [...] Inactive Nystop 100,000 unit/gram topical powder RxNorm: 251367 Apply to abd folds, under breasts and L side of groin Topical BID x 14 days, then BID PRN 04/08/20 20 Inactive dx: yeast dermatitis Lyrica 100 mg capsule RxNorm: 920899 Take 1 Capsule(s) Oral QHS every night at bedtime 03/13/20 20 Inactive Lyrica 50 mg capsule RxNorm: 395368 Take 1 Capsule(s) Oral QAM every morning 03/13/20 20 Inactive ketoconazole 2 % shampoo RxNorm: 341707 Apply Topical two times a week with showers 03/11/20 20 Inactive cholecalciferol (vitamin D3) 50 mcg (2,000 unit) tablet RxNorm: 726927 Take 1 Tablet(s) Oral QD 03/11/20 20 021 Inactive Zetia 10 mg tablet RxNorm: 793688 Take 1 Tablet(s) Oral QD 03/07/20 20 021 Inactive Zetia 10 mg tablet RxNorm: 455589 Take 1 Tablet(s) Oral QD 03/07/20 20 Inactive Lyrica 50 mg capsule RxNorm: 817400 Take 1 Capsule(s) Oral QAM every morning 02/15/20 20 Inactive Lyrica 100 mg capsule RxNorm: 424190 Take 1 Capsule(s) Oral QHS every night at bedtime 02/15/20 20 Inactive Lyrica 100 mg capsule RxNorm: 359836 Take 1 Capsule(s) Oral QHS every night at bedtime 02/15/20 20 Inactive Lyrica 50 mg capsule RxNorm: 942611 Take 1 Capsule(s) Oral QAM every morning 02/15/20 20 020 Inactive metoprolol succinate ER 200 mg tablet,extended release 24 hr RxNorm: 227655 Take 1 Tablet(s) Oral QD 08/12/19 23 Active loperamide 2 mg capsule RxNorm: 330052 Take 1 Capsule(s) Oral QID as needed 06/12/19 22 Active hydralazine 50 mg tablet RxNorm: 948583 Take 1 Tablet(s) Oral QID 08/12/19 23 Active venlafaxine ER 75 mg capsule,extended release 24 hr RxNorm: 226032 Take 3 Capsule(s) Oral QD 06/12/19 22 023 Inactive polyethylene glycol 3350 17 gram/dose oral powder RxNorm: 532698 Take 17=1 capful Gram(s) Oral BID as needed mix with 4-8oz of liquid 06/12/19 22 024 Inactive icosapent ethyl 1 gram capsule RxNorm: 9573583 Take 2 Capsule(s) (2 gm) Oral BID with meals 10/07/19 23 023 Inactive Okay to dispense one 2gm tab if you have that available. Levemir FlexTouch U-100 Insulin 100 unit/mL (3 mL) subcutaneous pen RxNorm: 957469 Inject 80 Unit(s) Subcutaneous BID 07/14/19 23 023 Inactive Novolog Flexpen U-100 Insulin aspart 100 unit/mL (3 mL) subcutaneous RxNorm: 9149567 Insert 30 Unit(s) Subcutaneous TID with meals [...] Item Code Result Date S ervice Location [facility] [id number] 02/08/2024 Unknown PHQ9 PHQ9 36079-3 4 02/08/2024 Unknown Procedures Procedure Codes Date SYS BP LESS 140 CPT-4: G8752 02/08/2024 CUI BP LESS 90 CPT-4: G8754 02/08/2024 DEBRIDE NAIL 1-5 CPT-4: 24472 02/08/2024 PT INELIG NEG SCRN DEPRES SNOMED CT: [id number] CPT-4: G8510 02/08/2024 Vital Signs Date Vital 02/08/2024 Blood Pressure 1: 124/78 Code: 8480-6 BMI: NaN Code: 64584-6 Heart Rate 1: 72 bpm Code: 8867-4 [...] Encounter Performer Location Location Address Codes Date (G0439) Medicare Annual Wellness Visit- Subsequent Diagnosis: Amputated toe of right [...] D deficiency[ICD10: E55.9] Diagnosis: Advance care planning[ICD10: Z71.89] Harrison Munson [facility] [place] [address] [place] [place] [address] CPT-4: G0439 02/08/2024 (75472) Home or Residence Visit Est Pt - [...] ] Diagnosis: [ICD9: ] Diagnosis: [ICD9: ] Harrison Munson [facility] [place] [address] [place] [address] CPT-4: 43536 02/08/2024 Plan of Care Planned Activity Notes Codes Status Date Patient Education: Patient Medication Summary Completed 02/08/2024 Patient Education: Addiction and Substance Abuse Completed 02/08/2024 Patient Education: Influenza Complet ed 02/08/2024 Patient Education: Exercise and Fitness Completed 02/08/2024 Appointment: Brian Munson WPtel: [address] [place], [place] [id number] [place] F/U 01/11/2024 Appointment: Sandra Clark WPtel: [address] [place], [place] [phone] Telehealth Psych Follow Up 12/09 Appointment: Tapan Shirley WPtel: [address] [place], [place] [phone] [place] TCM 10/26/2022 Referral: [facility] WPtel: [address], [address] [id number] [place] Referral Records Received 09/21/2022 Appointment: Tapan Shirley WPtel: [address] [id number] [place] F/U 08/11/2022 Appointment: Tapan Shirley WPtel: [address] [id number] [place] F/U 07/14/2022 Appointment: Tapan Shirley WPtel: [address] [id number] [place] F/U 02/10/2022 Referral: [facility] WPtel: [address] [id number] [place] Referral Completed 05/28/2021 Referral: General Cardiology [...] he moved to the [facility] to have closer nursing attention. Sister Jyotsna involved in his care cell# [phone] Guardian: Giulia (tapan met in person 09/01/21), now has Lexii (same group as giulia)AWV 9..2023. Lab Schedule: Mar-/September*September (CBC with diff, CMP, [...] Martines note from 11.08.2023 at [facility] (follow up 6 months)Colon & Rectal Surgery visit scheduled for 03/08/24 with Matilde Pérez PA-C. 02/08/2024 Candidal intertrigo Managed with Nystatin powder and Clotrimazole cream. Monitor for skin breakdown. Personal hygiene is important. No acute or worsening symptoms today. Paraparesis of both lower limbs Chronic bilateral LE paraparesis/weakness, with muscular and neurological involvement contributing to gait instability, falls and limiting mobility increasing risk of morbidity and mortality. Comorbid: obesity, DM2 with peripheral neuropathy, PVD. Utilizes walker. Unable to use stairs. Living in basement of . Can use patio door an ramp to get to driveway. PT order placed last visit although no services will come to his home unfortunately. Will follow up with nursing to see if he would have rides to outpatient PT. Hypercoagulable state Monitor for S&S of thrombus formation. NO S&S present today. Continue Aspirin and Eliquis as ordered. Seizure disorder No recent seizure activity reported. Continue Carbamazepine 200 mg BID. Does not follow with neurology. Staff to monitor for seizure activity and update PCP. Diabetic neuropathy associated with type 2 diabetes mellitus Bilateral neuropathy of feet. Thumping pain Continue Lyrica in the AM and PM as this is helping. Refill sent yesterday as facility has changed pharmacies and the new pharmacy requires a new prescription to be sent. Continue plan of care. Monitor skin integrity. Amputated toe of right foot Past amputation due to infection. Healed well. No open skin or skin integrity concerns at amputation site today. Monitor for skin breakdown and proper hygiene is important. History of anemia due to CKD Lab work in September and March. No iron supplementation at this time. Hx of deep venous thrombosis DVT in 2020. Remains on anticoagluation due to significant co-morbidities increasing his risk for further DVT formation including: severe obesity, sedentary lifestyle, limited mobility, DM2, HLD, HTN. Continue: Aspirin 81 mg QD and Eliquis 5 mg BID. 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 Monitor for unilateral edema, redness, pain to lower extremities. Stage 2 chronic 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 CKD stage 2: creatinine 1.0 and eGFR 84. High amounts of insulin prescribed by slope tender. Follows with them every 6 months. Next lab work to be completed in March. Treatment for comorbidities in place - hypertension, hyperlipidemia, diabetes. Hypokalemia 11.03.2023: ER labs (CBC, CMP K 3.9 Creat 1.0 eGFR 84) Will follow up with lab work in March. Continue KCl 40 mEq BID. Physical deconditioning In home PT was unsuccessful to be set up for Leonid. Will place outpatient PT referral today. PT, strengthening, activity will benefit him in multiple ways: pain, balance, weight loss, diabetes management, overall health and well-being. Constipation by delayed colonic transit Denies recent concerns with bowel movements. Daily BMs reported. Colon & Rectal Surgery visit scheduled for 03/08/24 with Matilde Pérez PA-C. for hemorrhoids. Continue miralax and senna daily along with PRN suppositories when needed. Monitor for worsening constipation or loose stools and adjust treatment plan accordingly. Staff to notify [facility] if they see signs of an ileus or bowel obstruction. [facility] AWV completed today 02.08.2024. Preventive health counseling reviewed including: regular physical exercise, healthy diet/nutrition, vision screening, hearing screening, preventive dental visits. Nonsmoker. MIIC reviewed. Due for COVID and Influenza vaccines. Vaccination history reviewed and patient is due for vaccine(s) as outlined in the History/Preventative Care section above. Colon cancer screening: refused in 2022. Refused again today. Will order PSA with scheduled lab work in March. Hyperlipidemia associated with type 2 diabetes mellitus Lipid panel due . High amounts of insulin prescribed by slope tender and continues to have high BG. High BG can be leading to high lipid panel results as well. Does not have good dietary intake; facility staff make and serve the food. When I am onsite for meals; no fresh fruit or veggies have been noted. Facility does not follow heart healthy diet unfortunately. Medications include: Vascepa 2 gram BID. Rosuvastatin 40 mg QD. Ezetimine 10 mg QD. Continue above medication. Major depression, recurrent Feels depressed at baseline. Spends his entire day isolated in his bedroom. Unable to use stairs in house to get upstairs. Very minimal human interaction or outside time for fresh air and natural sunlight. Thankfully does have visits from PCP and [facility] monthly. Continue: Abilify 7.5 mg QD and Venlafaxine 225 mg QD. PVD (peripheral vascular disease) Complicated with severe obesity, CAD, and DM2. Continue Torsemide and potassium chloride. Did place referral for in home fdc for woulds on lower left calf although no services available at his location. He is at high risk for impaired healing and infection due to his diabetes. We will follow skin integrity closely at each monthly visit. Vitamin D deficiency serum level checked in (32) - continue supplementation. Encouraged him to spend time outside in the sunshine. Pressure ulcer of left calf, unstageable Left LE with three scabs present today. No open areas of skin. Could not get fdc to come to his home unfortunately. Continue with daily and PRN: hygiene, keep skin clean and dry. Apply bacitracin to funes. Monitor for redness, warmth, fever, pain. Hypertensive heart disease without heart failure Multiple anti-hypertensives on board. Currently taking: Amlodipine 10 mg QD. Chlorthalidone 25 mg QD.Hydralazine 50 mg QID. Isosorbide mononitriate ER 60 mg QD. Metoprolol ER 200 mg QD. Potassium chloride ER 40 mEq BID. Torsemide 20 mg QD. Aspirin 81 mg QD. Treatment for HLD and DM2 on board. Blood pressure at goal today. Unsure of last date of cardiology follow up. Today denies chest pain, palpitations, shortness of breath, lightheadedness, or falls recently. Labs will be ordered for follow up in March. Onychogryposis 4 toenails tended to today. Left great toenail will likely fall off. No signs of infection today or ingrown toenails. Low back pain ER visit for low back pain. December visit orders for in home PT although nursing staff unable to set up for him. Will refer to out patient PT today. Denies low back pain today although could very much so benefit from PT for overall well-being. Lower extremity edema Non pitting edema Compression socks daily Continue Torsemide 20 mg QD and KCL 40 mEq BID. Nursing staff unable to get in home fdc to come to the facility. Support at this facility is difficult for wound cares and to obtain outside collaboration unfortunately due to the location. Left LE wounds are closed today; scabs present. Monitor closely, proper hygiene important. Reducible umbilical hernia Chronic. Asymptomatic. Continue to monitor for: pain, strangulation, constipation. Continue miralax and senna. BMI 60.0-69.9, adult Wt today: Education provided on healthy dietary intake. It is difficult for him as staff prepare and serve his meals. Encouraged to ask for lean protein, fruits, veggies, water for hydration. PT referral placed at last visit although nursing staff unable to find in home PT company that would come out to his home due to the location. This is unfortunate as PT for his back could have also helped increase his activity for weight loss and overall health. PCP asked nursing if there was a way Leonid could get a ride to PT although no response was given on the Bridge. Nursing staff not present at house during PCP rounds. Type 2 diabetes mellitus with diabetic polyneuropathy, with long-term current use of insulin [facility]: 11.26.2023. Torie Martines MD. Freestyle Chema. BG QID 240-320 Currently Basaglar 30 units BID and regular insulin 100 units TID and Ozempic 1 mg weekly. PLAN: A1c now and BMP/Lipid/TSH before next appt. Stop Ozempic. Diabets educator recommended to reach out to staff. Increase Basaglar to 40 units BID and continue Humulin R 100 units with each meal. F/U six moths (). Continue close follow up with slope tender. Last eye exam documented to be . Will recommend he see an eye doctor again for an exam. Looks like he has gone to [facility] in the past. Education is provided on healthy dietary intake, water intake, physical activity/movement after each meal/snack. Learning disability Unknown severity. Today reports finished highschool - 12th grade. Low SLUMS score could be affected by this. Able to answer questions about his health. Living in supportive environment. . 02/08/2024
--- OUTSIDE RECORDS SUMMARY | 2024-02-19 14:21 | XMS_ITS | CCD ---
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 City Controller Name Role Phone Arpit MCKINLEY-C, [place] Primary Care Provider Leona vailable Arpit SEL[employer] SE[employer]ING [employer] REPAIRER-C, [facility] Management U navailable Summary Purpose DataExchange Insurance Providers Payer name Policy type / Coverage type Covered constitution party ID Effective Begin Date Effective End Date Medicare [place] Medicare Part B [id number] Unknown Unknown Medicaid [place] Medicare Part B [id number] Unknown Unknown Family history Sister Brittany Suggs Diagnosis Age At Onset No Family Disease Entered N/A Runs in the family Diagnosis Age At Onset No Known Diseases N/A Sister Blanka Mcduffie Diagnosis Age At Onset No Family Disease Entered N/A Social History Social History Element Codes Description Effec tive Dates Tobacco history SNOMED CT: 199241487 Never smoker 01/16 Sexually Active? Unknown No [...] Prison 09/03/[address]: 372395472 No Alcohol Consum ption 09/02/2020 Allergies, Adverse Reactions, Alerts Substance Reaction Codes Entered Date Inactivated Date Status * NO KNOWN FOOD ALLERGIES Unknown 07/13/2023 No Inactive Date Active LISINOPRIL RxNorm: 47958 02/12/2020 No Inactive Da te Active Metformin [...] 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 Other terminal gauger (current) dr ug therapy ICD-10: Z79.899 ICD-9: [...] 09/07/2023 Resolved Coronary artery disease invo lving [place] coronary [...] (Concentrated) Insulin 500 unit/mL subcutaneous soln RxNorm: 730658 Inject 100 Unit(s) Subcutaneous TID 02/17/20 24 025 Active Basaglar KwikPen U-100 Insulin 100 unit/mL (3 mL) subcutaneous RxNorm: 2959679 Inject 30 Unit(s) Subcutaneous BID 02/10/20 24 024 Active Please dispense one month supply. Humulin R U-500 (Concentrated) Insulin 500 unit/mL subcutaneous soln RxNorm: 856013 Inject 100 Unit(s) Subcutaneous TID 02/10/20 24 024 Inactive pregabalin 100 mg capsule RxNorm: 154926 Take 1 Capsule(s) Oral QAM every morning 02/07/20 24 024 Active isosorbide mononitrate ER 60 mg tablet,extended release 24 hr RxNorm: 326928 Take 1 Tablet(s) Oral QD 02/01/20 24 025 Active aripiprazole 15 mg tablet RxNorm: 150138 Take 1/2 Tablet(s) Oral QD 02/01/20 24 025 Active torsemide 20 mg tablet RxNorm: 532537 1 TAB ORALLY DAILY (DX: EDEMA) 01/27/20 No Stop Date Active potassium chloride ER 20 mEq tablet,extended release(part/cryst) RxNorm: 8389035 2 TABS (40MEQ) ORALLY TWICE DAILY (DX: HYPOKALEMIA) 01/27/20 No Stop Date Active cephalexin 500 mg capsule RxNorm: 534352 Take 1 Capsule(s) Oral QID 12/17/19 24 024 Inactive cephalexin 500 mg capsule RxNorm: 007980 Take 1 Capsule(s) Oral QID 12/17/19 24 024 Inactive acetaminophen 500 mg tablet RxNorm: 464575 (MAX APAP:4GM/24HR) Take 1 Tablet(s) Oral TID as needed for pain 12/10/19 24 Active torsemide 20 mg tablet RxNorm: 087564 Take 1 Tablet(s) Oral QD 10/26/19 24 024 Inactive potassium chloride ER 20 mEq tablet,extended release RxNorm: 181922 Take 2 Tablet(s) Oral BID 10/26/19 24 Active torsemide 20 mg tablet RxNorm: 594894 Take 1 Tablet(s) Oral QD 10/26/19 24 024 Inactive potassium chloride ER 20 mEq tablet,extended release RxNorm: 095791 Take 2 Tablet(s) Oral BID 10/26/19 24 024 Inactive Artificial Tears (PF) 0.1 %-0.3 % drops in a dropperette RxNorm: 689595 Apply 1-2 Drop(s) Both eyes BID as needed 09/28/19 24 025 Active erythromycin 5 mg/gram (0.5 %) eye ointment RxNorm: 748937 Apply 1 Application Both eyes QHS every night at bedtime Instill ~1 cm ribbon into affected eye 09/28/19 24 024 Inactive Artificial Tears (PF) 0.1 %-0.3 % drops in a dropperette RxNorm: 721325 Apply 1-2 Drop(s) Both eyes BID as needed 09/28/19 24 Inactive erythromycin 5 mg/gram (0.5 %) eye ointment RxNorm: 736186 Apply 1 Application Both eyes QHS every night at bedtime Instill ~1 cm ribbon into affected eye 09/28/19 24 Inactive acetaminophen 500 mg tablet RxNorm: 519620 (MAX APAP:4GM/24HR) Take 1 Tablet(s) Oral TID as needed for pain 09/24/19 24 Inactive carvedilol 25 mg tablet RxNorm: 764476 Take 1 Tablet(s) Oral QD 09/08/19 24 No Stop Date Active pregabalin 100 mg capsule RxNorm: 671728 Take 1 Capsule(s) Oral QAM every morning 09/07/19 24 Inactive rosuvastatin 40 mg tablet RxNorm: 910897 Take 1 Tablet(s) Oral QPM every evening 07/13/19 24 No Stop Date Active ezetimibe 10 mg tablet RxNorm: 453702 Take 1 Tablet(s) Oral QD 07/13/19 24 No Stop Date Active bisacodyl 10 mg rectal suppository RxNorm: 503686 Insert 1 Suppository Rectal QD as needed 07/13/19 24 No Stop Date Active polyethylene glycol 3350 17 gram/dose oral powder RxNorm: 328393 Take 17 Gram(s) Oral BID as needed mix in 4-8ox water 07/13/19 24 No Stop Date Active ketoconazole 2 % shampoo RxNorm: 144640 Apply 1 Application Topical UD as directed 07/13/19 24 No Stop Date Active Ozempic 1 mg/dose (4 mg/3 mL) subcutaneous pen injector RxNorm: 6063467 Inject 1 Milligram(s) Subcutaneous QW once a week 07/13/19 24 No Stop Date Active Guaifenesin AC 10 mg-100 mg/5 mL oral liquid RxNorm: 446643 Take 10 Milliliter(s) Oral Q4H every four hours as needed 07/13/19 24 No Stop Date Active ammonium lactate 12 % topical cream RxNorm: 481504 Apply 1 Application Topical BID 07/13/19 24 No Stop Date Active hydrocortisone 2.5 % topical cream RxNorm: 404926 Apply 1 Application Topical BID as needed 07/13/19 24 No Stop Date Active rosuvastatin 20 mg sprinkle capsule RxNorm: 0939786 Take 1 Capsule(s) Oral QD 07/13/19 24 No Stop Date Active Vascepa 1 gram capsule RxNorm: 6951391 Take 2 Capsule(s) Oral BID 07/13/19 24 No Stop Date Active venlafaxine ER 75 mg capsule,extended release 24 hr RxNorm: 236144 Take 3 Capsule(s) Oral QD 07/13/19 24 No Stop Date Active aripiprazole 15 mg tablet RxNorm: 676931 Take 1/2 Tablet(s) Oral QD 07/13/19 24 024 Inactive isosorbide mononitrate ER 60 mg tablet,extended release 24 hr RxNorm: 888980 Take 1 Tablet(s) Oral QD 07/13/19 24 024 Inactive Basaglar KwikPen U-100 Insulin 100 unit/mL (3 mL) subcutaneous RxNorm: 9160321 Inject 30U SubQ twice daily 07/07/19 24 024 Inactive Please dispense one month supply. Basaglar KwikPen U-100 Insulin 100 unit/mL (3 mL) subcutaneous RxNorm: 0226792 Inject 30U SubQ twice daily 07/07/19 24 024 Inactive Please dispense one month supply. pregabalin 150 mg capsule RxNorm: 437390 Take 1 Capsule(s) Oral QHS every night at bedtime 07/05/19 24 024 Inactive pregabalin 150 mg capsule RxNorm: 706506 Take 1 Capsule(s) Oral QHS every night at bedtime 07/05/19 24 024 Inactive polyethylene glycol 3350 17 gram/dose oral powder RxNorm: 807789 Take 1 Packet Oral QD as needed (1 packet = 17g) mix with 4-8oz of liquid 06/15/19 24 024 Inactive bisacodyl 10 mg rectal suppository RxNorm: 466767 Insert one suppository per rectum once daily as needed for constipation 06/15/19 24 024 Inactive bisacodyl 10 mg rectal suppository RxNorm: 582356 Insert one suppository per rectum once daily as needed for constipation 06/15/19 24 024 Inactive pregabalin 100 mg capsule RxNorm: 465206 Take 1 Capsule(s) Oral QAM every morning 04/27/20 024 Inactive Levemir FlexPen 100 unit/mL (3 mL) solution subcutaneous insulin pen RxNorm: 993480 Inject 30 Unit(s) Subcutaneous BID 04/27/20 024 Inactive rosuvastatin 40 mg tablet RxNorm: 257315 Take 1 Tablet(s) Oral QPM every evening 04/16/20 024 Inactive D/C rosuvastatin 20mg venlafaxine ER 75 mg capsule,extended release 24 hr RxNorm: 244590 Take 3 Capsule(s) Oral QD 04/14/20 023 Inactive pregabalin 100 mg capsule RxNorm: 182785 Take 1 Capsule(s) Oral QAM every morning [...] meter clotrimazole 1 % topical cream RxNorm: 898519 Take apply topically to abdominal folds twice daily for 14 days 03/12/20 024 Inactive Ozempic 1 mg/dose (4 mg/3 mL) subcutaneous pen injector RxNorm: 8646313 Inject 1 Milligram(s) Subcutaneous QW once a week 03/11/20 023 Inactive rosuvastatin 20 mg tablet RxNorm: 989588 Take 1 Tablet(s) Oral QD 02/26/20 023 Inactive d/c pravastatin 80mg Ozempic 1 mg/dose (4 mg/3 mL) subcutaneous pen injector RxNorm: 7228368 Inject 1 Milligram(s) Subcutaneous QW once a week 02/20/20 23 023 Inactive pregabalin 150 mg capsule RxNorm: 591628 Take 1 Capsule(s) Oral HS at bed time 02/19/20 23 023 Inactive pregabalin 100 mg capsule RxNorm: 538960 Take 1 Capsule(s) Oral QAM every morning 02/18/20 23 023 Inactive venlafaxine ER 75 mg capsule,extended release 24 hr RxNorm: 926200 Take 3 Capsule(s) Oral QD 02/04/20 23 023 Inactive FreeStyle Chema 2 Sensor kit RxNorm: use as directed 02/04/20 23 023 Inactive FreeStyle Chema 2 Sensor kit RxNorm: use as directed 02/04/20 024 Inactive fluconazole 150 mg tablet RxNorm: 411131 Take 1 Tablet(s) Oral on day 3 and on day 6 02/03/20 024 Inactive chlorthalidone 25 mg tablet RxNorm: 958343 Take 1 Tablet(s) Oral QAM every morning 02/03/20 23 No Stop Date Active venlafaxine ER 150 mg capsule,extended release 24 hr RxNorm: 621299 Take 1 Capsule(s) Oral QD 02/03/20 23 023 Inactive acetaminophen 500 mg tablet RxNorm: 310655 1 TABLET ORALLY 3 TIMES DAILY (MAX APAP:4GM/24HR) 12/15/19 23 023 Inactive clotrimazole 1 % topical cream RxNorm: 635136 apply 1g topically to top of feet and in between toes BID 12/09/19 23 023 Inactive potassium chloride ER 20 mEq tablet,extended release RxNorm: 265129 Take 1 Tablet(s) Oral BID 12/09/19 23 024 Inactive d/c 20mEq once daily (sent from hospital) nystatin 100,000 unit/gram topical powder RxNorm: 289717 APPLY TO AFFECTED AREAS TOPICALLY 2 TIMES DAILY 11/21/19 23 024 Inactive Nystop 100,000 unit/gram topical powder RxNorm: 801319 Apply to abd folds, under breasts and L side of groin Topical BID x 14 days, then BID PRN 11/20/19 23 023 Inactive dx: yeast dermatitis [place] Ultra Strength 4 %-30 %-10 % topical cream RxNorm: 452798 Apply 1 Gram(s) Topical QID PRN to feet and legs for neuropathic pain 11/11/19 024 Inactive clotrimazole 1 % topical cream RxNorm: 026877 Apply 1/2 Gram(s) Topical BID Apply to affected areas of groin, periarea, and abdominal topically 2 times daily 11/10/19 23 023 Inactive hydrocortisone 2.5 % topical cream RxNorm: 492257 Apply 1/2 Gram(s) Topical BID as needed 11/10/19 024 Inactive Levemir FlexPen 100 unit/mL (3 mL) solution subcutaneous insulin pen RxNorm: 252429 Inject 30 Unit(s) Subcutaneous BID 10/07/19 023 Inactive Humulin R U-500 (Concentrated) Insulin 500 unit/mL subcutaneous soln RxNorm: 592550 Inject 100 Unit(s) Subcutaneous TID 10/07/19 024 Inactive Ozempic 0.25 mg or 0.5 mg (2 mg/3 mL) subcutaneous pen injector RxNorm: 9737362 Inject 1/2 Milligram(s) Subcutaneous QW once a week 10/07/19 024 Inactive aripiprazole 15 mg tablet RxNorm: 609952 1/2 TAB (7.5MG) ORALLY DAILY (DX:MAJOR DEPRESSIVE DISORDER) 09/23/19 023 Inactive Lancets,Thin 28 gauge RxNorm: Use 1 as directed QID 09/15/19 23 024 Inactive Accu-Chek Guide test strips RxNorm: Use 1 Test Strip QID 09/15/19 23 023 Inactive ok to substitute with any covered alternative test strip torsemide 20 mg tablet RxNorm: 769510 Take 1 Tablet(s) Oral BID 09/09/19 23 024 Inactive d/c once daily dosing carvedilol 25 mg tablet RxNorm: 811880 Take 1 Tablet(s) Oral QD 08/25/19 23 024 Inactive pregabalin 150 mg capsule RxNorm: 595272 1 Capsule(s) Oral HS at bed time 08/18/19 23 023 Inactive pregabalin 100 mg capsule RxNorm: 283877 1 Capsule(s) Oral QAM every morning 08/18/19 23 023 Inactive carvedilol 25 mg tablet RxNorm: 299524 1 Tablet(s) Oral QD 07/28/19 23 023 Inactive lisinopril 20 mg tablet RxNorm: 022451 Give 1 Tablet(s) Oral QD 07/28/19 23 023 Inactive Lyrica 150 mg capsule RxNorm: 740433 Take 1 Capsule(s) Oral QHS every night at bedtime 07/19/19 023 Inactive d/c 100mg dose Diflucan 150 mg tablet RxNorm: 811572 Take 1 Tablet(s) Oral QD repeat on day 3 and 6 07/19/19 23 023 Inactive pregabalin 100 mg capsule RxNorm: 576594 Take 1 Capsule(s) Oral QAM every morning 07/19/19 23 023 Inactive gatifloxacin 0.5 % eye drops RxNorm: 361129 Instill 1 Drop(s) as directed TID Instill 1 drop in to affected eye(s) starting 1 day prior to surgery and continue until gone (do not exceed 4 weeks). 07/13/19 23 023 Inactive carvedilol 25 mg tablet RxNorm: 756300 2 Tablet(s) Oral BID 07/13/19 23 023 Inactive Humulin R Regular U-100 Insulin 100 unit/mL injection solution RxNorm: 827665 85 Unit(s) Injection TID 07/13/19 23 023 Inactive ketorolac 0.5 % eye drops RxNorm: 605041 Instill 1 Drop(s) as directed QID Instill 1 drop into affected eye(s) 4 times daily starting 1 day prior to surgery and continue until gone (do not exceed 4 weeks). 07/13/19 23 023 Inactive Diflucan 150 mg tablet RxNorm: 003827 Take 1 Tablet(s) Oral QD repeat on day 3 and 6 06/30/19 23 023 Inactive Accu-Chek Guide test strips RxNorm: Use 1 Test Strip QID Use 1 test strip to monitor blood glucose 4 times daily and as needed. Dx:E11.42. 06/23/19 023 Inactive ok to substitute with any covered alternative test strip dextromethorphan-gu aifenesin 10 mg-100 mg/5 mL oral liquid RxNorm: 088182 Take 10 Milliliter(s) Oral every 4 hours as needed for cough 06/19/19 023 Inactive dextromethorphan-gu aifenesin 10 mg-100 mg/5 mL oral liquid RxNorm: 799362 Take 10 Milliliter(s) Oral every 4 hours as needed for cough 06/19/19 023 Inactive Lyrica 150 mg capsule RxNorm: 303272 Take 1 Capsule(s) Oral QHS every night at bedtime 06/18/19 023 Inactive d/c 100mg dose aripiprazole 15 mg tablet RxNorm: 138423 1/2 TAB (7.5MG) ORALLY DAILY (DX:MAJOR DEPRESSIVE DISORDER) 06/05/19 023 Inactive pregabalin 100 mg capsule RxNorm: 866857 1 Capsule(s) Oral QAM every morning 06/02/19 023 Inactive Banophen 50 mg capsule RxNorm: 1867303 Take 1 Capsule(s) Oral Q6H every 6 hours as needed 05/19/19 23 No Stop Date Active Novolog Flexpen U-100 Insulin aspart 100 unit/mL (3 mL) subcutaneous RxNorm: 9055183 Inject 10 Unit(s) Subcutaneous QHS every night at bedtime with nighttime snack 04/08/20 22 022 Inactive Novolog Flexpen U-100 Insulin aspart 100 unit/mL (3 mL) subcutaneous RxNorm: 9400835 Inject 42 Unit(s) Subcutaneous TID in addition to sliding scale 04/08/20 22 022 Inactive d/c 36u albuterol sulfate HFA 90 mcg/actuation aerosol inhaler RxNorm: 7307488 Take 2 Puff(s) Inhalation Q4H every four hours as needed as needed for SOB, cough, or wheezing 04/07/20 030 Active Banophen 50 mg capsule RxNorm: 7151796 Take 1 Capsule(s) Oral Q6H every 6 hours as needed 04/06/20 023 Inactive diphenhydramine 50 mg tablet RxNorm: 6482327 Take 1 Tablet(s) Oral Q6H every 6 hours as needed 04/06/20 022 Inactive diphenhydramine 50 mg tablet RxNorm: 8138025 1 Tablet(s) Oral Q6H every 6 hours as needed 04/06/20 022 Inactive Abilify 15 mg tablet RxNorm: 275361 1/2 Tablet(s) Oral QD 03/10/20 023 Inactive Shingrix (PF) 50 mcg/0.5 mL intramuscular suspension, kit RxNorm: 8216997 Administer 1/2 Milliliter(s) Intramuscular QD one time shingrix step 2 ( step 1 given 11/04/21) WITH needle - Nursing please administer upon arrival and once administered post a bridge message with date of administration, counselor dormitory, expiration date, and lot# so we can update [facility] 02/18/20 22 022 Inactive dispense with needle Shingrix (PF) 50 mcg/0.5 mL intramuscular suspension, kit RxNorm: 8901812 Administer 1/2 Milliliter(s) Intramuscular QD one time shingrix step 2 ( step 1 given 11/04/21) WITH needle - Nursing please administer upon arrival and once administered post a bridge message with date of administration, counselor dormitory, expiration date, and lot# so we can update [facility] 02/18/20 22 022 Inactive dispense with needle polyethylene glycol 3350 17 gram/dose oral powder RxNorm: 827091 Take 17=1 capful Gram(s) Oral QD mix with 4-8oz of liquid 01/08/20 22 023 Inactive take this in addition to BID prn order Lyrica 100 mg capsule RxNorm: 526296 Take 1 Capsule(s) Oral QAM every morning 01/08/20 22 022 Inactive d/c 50mg dose acetaminophen 500 mg tablet RxNorm: 518840 Take 1 Tablet(s) Oral TID 01/08/20 22 022 Inactive d/c PRN order Lyrica 150 mg capsule RxNorm: 166843 Take 1 Capsule(s) Oral QHS every night at bedtime 01/08/20 22 023 Inactive d/c 100mg dose Abilify 5 mg tablet RxNorm: 100580 Take 1 Tablet(s) Oral QD take 1 tab po QD #30 refill 5 dx: MDD 12/12/19 22 022 Inactive Abilify 5 mg tablet RxNorm: 650278 Take 1 Tablet(s) Oral QD take 1 tab po QD #30 refill 5 dx: MDD 12/12/19 22 022 Inactive Novolog Flexpen U-100 Insulin aspart 100 unit/mL (3 mL) subcutaneous RxNorm: 7461242 Inject 42 Unit(s) Subcutaneous TID in addition to sliding scale 12/10/19 22 022 Inactive d/c 36u chlorthalidone 25 mg tablet RxNorm: 124872 Take 1 Tablet(s) Oral QAM every morning 12/10/19 22 023 Inactive pregabalin 50 mg capsule RxNorm: 436565 Take 1 Capsule(s) Oral QAM every morning 11/12/19 22 022 Inactive tetanus-diphtheria toxoids-Td 2 Lf unit-2 Lf unit/0.5 mL IM suspension RxNorm: 139 Take 0.5 Miscellaneous Intramuscular 11/12/19 22 022 Inactive need tdap - nursing to administer upon arrival pregabalin 50 mg capsule RxNorm: 576035 Take 1 Capsule(s) Oral QAM every morning 10/16/19 22 022 Inactive pregabalin 50 mg capsule RxNorm: 935072 Take 1 Capsule(s) Oral QAM every morning 10/16/19 22 022 Inactive pregabalin 50 mg capsule RxNorm: 872312 1 Capsule(s) Oral QAM every morning 10/15/19 22 022 Inactive Shingrix (PF) 50 mcg/0.5 mL intramuscular suspension, kit RxNorm: 6384637 Administer 1/2 Milliliter(s) Intramuscular one time Nursing please administer upon arrival and once administered post a bridge message with date of administration, counselor dormitory, expiration date, and lot# so we can update [facility]. 10/09/19 22 022 Inactive shingrix step 1 Shingrix (PF) 50 mcg/0.5 mL intramuscular suspension, kit RxNorm: 1445271 Administer 1/2 Milliliter(s) Intramuscular one time Nursing please administer upon arrival and once administered post a bridge message with date of administration, counselor dormitory, expiration date, and lot# so we can update [facility]. 10/09/19 22 022 Inactive shingrix step 1 cholecalciferol (vitamin D3) 1,250 mcg (50,000 unit) capsule RxNorm: 069092 Take 1 Capsule(s) Oral QW once a [...] aspart 100 unit/mL (3 mL) subcutaneous RxNorm: 4130419 Inject 10 Unit(s) Subcutaneous QHS every night at bedtime with nighttime snack 10/08/19 22 Inactive Shingrix (PF) 50 mcg/0.5 mL intramuscular suspension, kit RxNorm: 3227888 ADMINISTER 2-DOSE SERIES PER CDC GUIDELINES 10/08/19 22 022 Active Shingrix (PF) 50 mcg/0.5 mL intramuscular suspension, kit RxNorm: 4235856 ADMINISTER 2-DOSE SERIES PER CDC GUIDELINES 10/08/19 22 Inactive Novolog Flexpen U-100 Insulin aspart 100 unit/mL (3 mL) subcutaneous RxNorm: 7216186 Inject 36 Unit(s) Subcutaneous TID in addition to sliding scale 10/08/19 022 Inactive Novofine Autocover 30 gauge x 1/3 needle RxNorm: Use 1 Miscellaneous UD as directed Use 1 needle as directed to administer insulin 5 times a day Dx:E11.42. 10/03/19 Inactive ok to substitute with any covered alternative pen needle benzoyl peroxide 10 % topical cleanser RxNorm: 368265 Apply 1 Application Topical QD apply to face, wash rinse and dry once daily (may change to QOD if drying) 08/19/19 022 Inactive (%covered by insurance) #60ml refill 11 dx: acne benzoyl peroxide 10 % topical cleanser RxNorm: 269201 Apply 1 Application Topical QD apply to face, wash rinse and dry once daily (may change to QOD if drying) 08/19/19 022 Inactive (%covered by insurance) #60ml refill 11 dx: acne benzoyl peroxide 10 % topical cleanser RxNorm: 797029 Apply 1 Application Topical QD apply to face, wash rinse and dry once daily (may change to QOD if drying) 08/19/19 022 Inactive (%covered by insurance) #60ml refill 11 dx: acne Lyrica 50 mg capsule RxNorm: 804793 Take 1 Capsule(s) Oral QAM every morning Take 1 capsule by mouth once daily 08/19/19 022 Inactive benzoyl peroxide 10 % topical cleanser RxNorm: 507852 Apply 1 Application Topical QD apply to face, wash rinse and dry once daily (may change to QOD if drying) 08/19/19 022 Inactive (%covered by insurance) #60ml refill 11 dx: acne Lyrica 100 mg capsule RxNorm: 949107 Take 1 Capsule(s) Oral QHS every night at bedtime Take 1 capsule by mouth once daily at bedtime 08/19/19 22 022 Inactive Lyrica 100 mg capsule RxNorm: 816200 Take 1 Capsule(s) Oral QHS every night at bedtime Take 1 capsule by mouth once daily at bedtime 08/16/19 22 022 Inactive Lyrica 50 mg capsule RxNorm: 350975 Take 1 Capsule(s) Oral QAM every morning Take 1 capsule by mouth once daily 08/16/19 22 022 Inactive Levemir FlexTouch U-100 Insulin 100 unit/mL (3 mL) subcutaneous pen RxNorm: 616002 Inject 86 Unit(s) Subcutaneous BID 08/05/19 22 022 Inactive d/c 83units BID Lyrica 100 mg capsule RxNorm: 929030 Take 1 Capsule(s) Oral QHS every night at bedtime Take 1 capsule by mouth once daily at bedtime 07/14/19 22 022 Inactive Lyrica 50 mg capsule RxNorm: 550277 Take 1 Capsule(s) Oral QAM every morning Take 1 capsule by mouth once daily 07/14/19 22 022 Inactive Levemir FlexTouch U-100 Insulin 100 unit/mL (3 mL) subcutaneous pen RxNorm: 066975 Inject 83 Unit(s) Subcutaneous BID 07/08/19 22 [...] test strip hydralazine 50 mg tablet RxNorm: 376979 Take 1 Tablet(s) Oral QID 05/05/20 21 022 Inactive venlafaxine ER 225 mg tablet,extended release 24 hr RxNorm: 764298 Take 1 Tablet(s) Oral QD 05/05/20 21 021 Inactive venlafaxine ER 225 mg tablet,extended release 24 hr RxNorm: 197348 Take 1 Tablet(s) Oral QD 05/05/20 022 Inactive isosorbide mononitrate ER 30 mg tablet,extended release 24 hr RxNorm: 866309 Take 1 Tablet(s) Oral QD 05/05/20 024 Inactive hydralazine 50 mg tablet RxNorm: 437522 Take 1 Tablet(s) Oral QID 05/05/20 21 Inactive aspirin 81 mg tablet,delayed release RxNorm: 144081 Take 1 Tablet(s) Oral QD 03/31/20 022 Inactive Vitamin D2 1,250 mcg (50,000 unit) capsule RxNorm: 1610744 Take 1 Capsule(s) Oral QW once a week x 12 weeks 03/31/20 022 Inactive Vitamin D2 1,250 mcg (50,000 unit) capsule RxNorm: 1256655 Take 1 Capsule(s) Oral QW once a week 03/31/20 021 Inactive Zetia 10 mg tablet RxNorm: 127610 Take 1 Tablet(s) Oral QD 03/31/20 21 024 Inactive Zetia 10 mg tablet RxNorm: 071638 Take 1 Tablet(s) Oral QD 03/31/20 21 021 Inactive hydralazine 25 mg tablet RxNorm: 710257 Take 1 Tablet(s) Oral QID 03/31/20 021 Inactive hydralazine 25 mg tablet RxNorm: 738361 Take 1 Tablet(s) Oral QID 03/31/20 021 Inactive hydralazine 10 mg tablet RxNorm: 587517 Take 1 Tablet(s) Oral QID 03/03/20 021 Inactive cephalexin 500 mg tablet RxNorm: 334531 Take 1 Tablet(s) Oral QID 02/27/20 021 Inactive cephalexin 500 mg tablet RxNorm: 968790 Take 1 Tablet(s) Oral QID 02/27/20 021 Inactive lisinopril 40 mg tablet RxNorm: 195768 Take 1 Tablet(s) Oral QD 02/11/20 023 Inactive Eliquis 5 mg tablet RxNorm: 9065537 Take 1 Tablet(s) Oral BID 01/05/20 022 Inactive Eliquis 5 mg tablet RxNorm: 1507346 Take 2 Tablet(s) Oral QD 01/01/20 21 021 Inactive Lyrica 50 mg capsule RxNorm: 060101 Take 1 Capsule(s) Oral QAM every morning 12/24/19 21 021 Inactive Lyrica 100 mg capsule RxNorm: 069481 Take 1 Capsule(s) Oral QHS every night at bedtime 12/24/19 021 Inactive clotrimazole 1 % topical cream RxNorm: 052209 Apply to right foot and toes Topical BID 12/04/19 21 023 Inactive metoprolol succinate ER 200 mg tablet,extended release 24 hr RxNorm: 507008 Take 1 Tablet(s) Oral QD 12/04/19 21 023 Inactive ciprofloxacin 500 mg tablet RxNorm: 882730 Take 1 Tablet(s) Oral QD 11/30/19 21 021 Inactive DX ofloxacin otic drops Accu-Chek Guide test strips RxNorm: USE 1 TO CHECK GLUCOSE 4 TIMES DAILY AND NEEDED 11/15/19 21 023 Inactive Blood Glucose Test strips RxNorm: Use 1 Test Strip QID at PRN 11/05/19 21 023 Inactive E11.42 lisinopril 30 mg tablet RxNorm: 666308 Take 1 Tablet(s) Oral QD 10/30/19 21 021 Inactive lisinopril 20 mg tablet RxNorm: 483832 Take 1 Tablet(s) Oral QD 10/23/19 21 021 Inactive lisinopril 20 mg tablet RxNorm: 215789 Take 1 Tablet(s) Oral QD 10/23/19 21 021 Inactive lisinopril 10 mg tablet RxNorm: 239824 Take 1 Tablet(s) Oral QD 10/02/19 021 Inactive icosapent ethyl 1 gram capsule RxNorm: 9812473 Take 2 Capsule(s) (2 gm) Oral BID with meals 09/12/19 21 024 Inactive Okay to dispense one 2gm tab if you have that available. icosapent ethyl 1 gram capsule RxNorm: 4488027 Take 2 Capsule(s) Oral BID 09/12/19 21 021 Inactive Okay to dispense one 2gm tab if you have that available. amlodipine 10 mg tablet RxNorm: 247982 Take 1 Tablet(s) Oral QD 09/04/19 21 022 Inactive aspirin 81 mg tablet,delayed release RxNorm: 912960 Take 1 Tablet(s) Oral QD 09/04/19 21 021 Inactive Levemir FlexTouch U-100 Insulin 100 unit/mL (3 mL) subcutaneous pen RxNorm: 569435 Inject 150 Unit(s) Subcutaneous BID 09/04/19 21 022 Inactive venlafaxine ER 150 mg tablet,extended release 24 hr RxNorm: 612083 Take 1 Tablet(s) Oral QD 09/04/19 21 021 Inactive clotrimazole-betame thasone 1 %-0.05 % topical cream RxNorm: 927506 Apply to rash on red area on left abdomen/chest Topical BID 08/10/19 21 021 Inactive amlodipine 5 mg tablet RxNorm: 885498 Take 1 Tablet(s) Oral QD 07/31/19 21 021 Inactive cephalexin 500 mg tablet RxNorm: 443620 Take 1 Tablet(s) Oral BID BID - Twice Daily 07/31/19 21 021 Inactive Start 08/01/20 pantoprazole 40 mg tablet,delayed release RxNorm: 964380 Take 1 Tablet(s) Oral QAM every morning 07/08/19 022 Inactive senna 8.6 mg tablet RxNorm: 015477 Take 1 Tablet(s) Oral QD 07/08/19 022 Inactive carbamazepine 200 mg tablet RxNorm: 822614 Take 1 Tablet(s) Oral BID 07/08/19 Inactive clopidogrel 75 mg tablet RxNorm: 437867 Take 1 Tablet(s) Oral QD 07/08/19 021 Inactive Blood Glucose Test strips RxNorm: Use 1 Test Strip QID at PRN 07/08/19 Inactive E11.42 Novolog Flexpen U-100 Insulin aspart 100 unit/mL (3 mL) subcutaneous RxNorm: 5441844 Administer per sliding scale Milliliter(s) Subcutaneous TID 151-200: 10 u; 201-250: 20 u; 251-300: 30 u; 301-350: 40 u; 351-400: 50 u. 07/08/19 Inactive lisinopril 5 mg tablet RxNorm: 464832 Take 1 Tablet(s) Oral QD 07/08/19 021 Inactive Novolog Flexpen U-100 Insulin aspart 100 unit/mL (3 mL) subcutaneous RxNorm: 7057872 Inject 85 Unit(s) Subcutaneous TID 07/08/19 022 Inactive pravastatin 80 mg tablet RxNorm: 332717 Take 1 Tablet(s) Oral QHS every night at bedtime 07/08/19 023 Inactive clotrimazole 1 % topical cream RxNorm: 127514 Apply to bilateral groin areas Topical BID 07/08/19 022 Inactive metoprolol succinate ER 200 mg tablet,extended release 24 hr RxNorm: 816358 Take 1 Tablet(s) Oral QD 07/08/19 21 021 Inactive Vitamin D3 25 mcg (1,000 unit) tablet RxNorm: 698877 Take 1 Tablet(s) Oral QD 07/08/19 021 Inactive isosorbide dinitrate 30 mg tablet RxNorm: 664672 Take 1 Tablet(s) Oral QD 07/08/19 021 Inactive Levemir FlexTouch U-100 Insulin 100 unit/mL (3 mL) subcutaneous pen RxNorm: 522434 Inject 140 Unit(s) Subcutaneous BID 07/08/19 021 Inactive torsemide 20 mg tablet RxNorm: 625975 Take 1 Tablet(s) Oral QD 07/08/19 023 Inactive venlafaxine 75 mg tablet RxNorm: 763704 Take 1 Tablet(s) Oral QD 07/08/19 021 Inactive acetaminophen 500 mg tablet RxNorm: 135237 Take 1 Tablet(s) Oral TID as needed for headache 06/18/19 21 021 Inactive acetaminophen 500 mg tablet RxNorm: 586018 Take 1 Tablet(s) Oral TID as needed for headache 06/18/19 21 021 Inactive Lyrica 100 mg capsule RxNorm: 877479 Take 1 Capsule(s) Oral QHS every night at bedtime 06/11/19 021 Inactive Lyrica 50 mg capsule RxNorm: 521952 Take 1 Capsule(s) Oral QAM every morning 06/10/19 21 021 Inactive hydrocortisone 2.5 % topical cream RxNorm: 534651 Apply to bilateral groin creases Topical BID 05/15/20 20 021 Inactive clotrimazole 1 % topical cream RxNorm: 648003 Apply to bilateral groin areas Topical BID 05/15/20 20 021 Inactive Lyrica 50 mg capsule RxNorm: 925620 Take 1 Capsule(s) Oral QAM every morning 05/14/20 20 020 Inactive Lyrica 100 mg capsule RxNorm: 570418 Take 1 Capsule(s) Oral QHS every night [...] Inactive Nystop 100,000 unit/gram topical powder RxNorm: 808238 Apply to abd folds, under breasts and L side of groin Topical BID x 14 days, then BID PRN 04/08/20 20 020 Inactive dx: yeast dermatitis Lyrica 100 mg capsule RxNorm: 403402 Take 1 Capsule(s) Oral QHS every night at bedtime 03/13/20 20 Inactive Lyrica 50 mg capsule RxNorm: 851418 Take 1 Capsule(s) Oral QAM every morning 03/13/20 20 Inactive ketoconazole 2 % shampoo RxNorm: 546476 Apply Topical two times a week with showers 03/11/20 20 024 Inactive cholecalciferol (vitamin D3) 50 mcg (2,000 unit) tablet RxNorm: 544269 Take 1 Tablet(s) Oral QD 03/11/20 20 021 Inactive Zetia 10 mg tablet RxNorm: 536238 Take 1 Tablet(s) Oral QD 03/07/20 20 021 Inactive Zetia 10 mg tablet RxNorm: 706967 Take 1 Tablet(s) Oral QD 03/07/20 20 020 Inactive Lyrica 50 mg capsule RxNorm: 444890 Take 1 Capsule(s) Oral QAM every morning 02/15/20 20 Inactive Lyrica 100 mg capsule RxNorm: 631709 Take 1 Capsule(s) Oral QHS every night at bedtime 02/15/20 20 Inactive Lyrica 100 mg capsule RxNorm: 528212 Take 1 Capsule(s) Oral QHS every night at bedtime 02/15/20 20 Inactive Lyrica 50 mg capsule RxNorm: 906615 Take 1 Capsule(s) Oral QAM every morning 02/15/20 20 Inactive metoprolol succinate ER 200 mg tablet,extended release 24 hr RxNorm: 425437 Take 1 Tablet(s) Oral QD 08/12/19 23 Active loperamide 2 mg capsule RxNorm: 280542 Take 1 Capsule(s) Oral QID as needed 06/12/19 22 Active hydralazine 50 mg tablet RxNorm: 684684 Take 1 Tablet(s) Oral QID 08/12/19 23 Active venlafaxine ER 75 mg capsule,extended release 24 hr RxNorm: 814566 Take 3 Capsule(s) Oral QD 06/12/19 22 023 Inactive polyethylene glycol 3350 17 gram/dose oral powder RxNorm: 801200 Take 17=1 capful Gram(s) Oral BID as needed mix with 4-8oz of liquid 06/12/19 22 024 Inactive icosapent ethyl 1 gram capsule RxNorm: 2094164 Take 2 Capsule(s) (2 gm) Oral BID with meals 10/07/19 23 023 Inactive Okay to dispense one 2gm tab if you have that available. Levemir FlexTouch U-100 Insulin 100 unit/mL (3 mL) subcutaneous pen RxNorm: 927608 Inject 80 Unit(s) Subcutaneous BID 07/14/19 23 023 Inactive Novolog Flexpen U-100 Insulin aspart 100 unit/mL (3 mL) subcutaneous RxNorm: 4004202 Insert 30 Unit(s) Subcutaneous TID with meals [...] Status Date Referral: [facility] WPtel: [address] [id number] [place] Referral Records Received 09/21/2022 Referral: [facility] WPtel: [address] [id number] [place] Referral Completed 05/28/2021 Referral: General Cardiology [...] Sister Jyotsna involved in his care cell# [phone] Guardian: Giulia (tapan met in person 09/01/21), [...] Martines note from 11.08.2023 at [facility] (follow up 6 months)Colon & Rectal Surgery visit scheduled for 03/08/24 with Matilde Pérez PA-C. 02/08/2024
--- OUTSIDE RECORDS SUMMARY | 2024-03-03 15:19 | XMS_ITS | CCD ---
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 Primary Care Provider Leona vailable Arpit ARLENParker Harrison Chronic Care Management U navailable Summary Purpose DataExchange Insurance Providers Payer name Policy type / Coverage type Covered democrat ID Effective Begin Date Effective End Date Medicare [place] Medicare Part B [id number] Unknown Unknown [place] Medicare Part B [id number] Unknown Unknown Family history Sister Brittany Suggs Diagnosis Age At Onset No Family Disease Entered N/A Runs in the family Diagnosis Age At Onset No Known Diseases N/A Sister Blanka Mcduffie Diagnosis Age At Onset No Family Disease Entered N/A Social History Social History Element Codes Description Effec tive Dates Tobacco history SNOMED CT: 708720470 Never smoker 01/16 Sexually Active? Unknown No [...] Unknown [facility] 09/03/[address]: 599126619 No Alcohol Consum ption 09/02/2020 Allergies, Adverse Reactions, Alerts Substance Reaction Codes Entered Date Inactivated Date Status * NO KNOWN FOOD ALLERGIES Unknown 07/13/2023 No Inactive Date Active LISINOPRIL RxNorm: 24873 02/12/2020 No Inactive Da te Active Metformin [...] 09/07/2023 Resolved Coronary artery disease invo lving jamul coronary [...] (Concentrated) Insulin 500 unit/mL subcutaneous soln RxNorm: 718845 Inject 100 Unit(s) Subcutaneous TID 02/17/20 24 025 Active Basaglar KwikPen U-100 Insulin 100 unit/mL (3 mL) subcutaneous RxNorm: 4543042 Inject 30 Unit(s) Subcutaneous BID 02/10/20 24 024 Active Please dispense one month supply. Humulin R U-500 (Concentrated) Insulin 500 unit/mL subcutaneous soln RxNorm: 165463 Inject 100 Unit(s) Subcutaneous TID 02/10/20 24 024 Inactive pregabalin 100 mg capsule RxNorm: 512639 Take 1 Capsule(s) Oral QAM every morning 02/07/20 24 024 Active isosorbide mononitrate ER 60 mg tablet,extended release 24 hr RxNorm: 865704 Take 1 Tablet(s) Oral QD 02/01/20 24 025 Active aripiprazole 15 mg tablet RxNorm: 378998 Take 1/2 Tablet(s) Oral QD 02/01/20 24 025 Active torsemide 20 mg tablet RxNorm: 700879 1 TAB ORALLY DAILY (DX: EDEMA) 01/27/20 No Stop Date Active potassium chloride ER 20 mEq tablet,extended release(part/cryst) RxNorm: 7738996 2 TABS (40MEQ) ORALLY TWICE DAILY (DX: HYPOKALEMIA) 01/27/20 No Stop Date Active cephalexin 500 mg capsule RxNorm: 454113 Take 1 Capsule(s) Oral QID 12/17/19 24 024 Inactive cephalexin 500 mg capsule RxNorm: 896932 Take 1 Capsule(s) Oral QID 12/17/19 24 024 Inactive acetaminophen 500 mg tablet RxNorm: 994435 (MAX APAP:4GM/24HR) Take 1 Tablet(s) Oral TID as needed for pain 12/10/19 24 024 Active torsemide 20 mg tablet RxNorm: 728492 Take 1 Tablet(s) Oral QD 10/26/19 24 024 Inactive potassium chloride ER 20 mEq tablet,extended release RxNorm: 035867 Take 2 Tablet(s) Oral BID 10/26/19 24 025 Active torsemide 20 mg tablet RxNorm: 824939 Take 1 Tablet(s) Oral QD 10/26/19 24 024 Inactive potassium chloride ER 20 mEq tablet,extended release RxNorm: 930527 Take 2 Tablet(s) Oral BID 10/26/19 24 024 Inactive Artificial Tears (PF) 0.1 %-0.3 % drops in a dropperette RxNorm: 435690 Apply 1-2 Drop(s) Both eyes BID as needed 09/28/19 24 025 Active erythromycin 5 mg/gram (0.5 %) eye ointment RxNorm: 048841 Apply 1 Application Both eyes QHS every night at bedtime Instill ~1 cm ribbon into affected eye 09/28/19 Inactive Artificial Tears (PF) 0.1 %-0.3 % drops in a dropperette RxNorm: 928058 Apply 1-2 Drop(s) Both eyes BID as needed 09/28/19 Inactive erythromycin 5 mg/gram (0.5 %) eye ointment RxNorm: 257721 Apply 1 Application Both eyes QHS every night at bedtime Instill ~1 cm ribbon into affected eye 09/28/19 Inactive acetaminophen 500 mg tablet RxNorm: 004601 (MAX APAP:4GM/24HR) Take 1 Tablet(s) Oral TID as needed for pain 09/24/19 Inactive carvedilol 25 mg tablet RxNorm: 550908 Take 1 Tablet(s) Oral QD 09/08/19 24 No Stop Date Active pregabalin 100 mg capsule RxNorm: 252849 Take 1 Capsule(s) Oral QAM every morning 09/07/19 24 Inactive rosuvastatin 40 mg tablet RxNorm: 820261 Take 1 Tablet(s) Oral QPM every evening 07/13/19 24 No Stop Date Active ezetimibe 10 mg tablet RxNorm: 308572 Take 1 Tablet(s) Oral QD 07/13/19 24 No Stop Date Active bisacodyl 10 mg rectal suppository RxNorm: 563101 Insert 1 Suppository Rectal QD as needed 07/13/19 24 No Stop Date Active polyethylene glycol 3350 17 gram/dose oral powder RxNorm: 821049 Take 17 Gram(s) Oral BID as needed mix in 4-8ox water 07/13/19 24 No Stop Date Active ketoconazole 2 % shampoo RxNorm: 704571 Apply 1 Application Topical UD as directed 07/13/19 24 No Stop Date Active Ozempic 1 mg/dose (4 mg/3 mL) subcutaneous pen injector RxNorm: 7738631 Inject 1 Milligram(s) Subcutaneous QW once a week 07/13/19 24 No Stop Date Active Guaifenesin AC 10 mg-100 mg/5 mL oral liquid RxNorm: 538294 Take 10 Milliliter(s) Oral Q4H every four hours as needed 07/13/19 24 No Stop Date Active ammonium lactate 12 % topical cream RxNorm: 441379 Apply 1 Application Topical BID 07/13/19 24 No Stop Date Active hydrocortisone 2.5 % topical cream RxNorm: 807795 Apply 1 Application Topical BID as needed 07/13/19 24 No Stop Date Active rosuvastatin 20 mg sprinkle capsule RxNorm: 3325498 Take 1 Capsule(s) Oral QD 07/13/19 24 No Stop Date Active Vascepa 1 gram capsule RxNorm: 8854284 Take 2 Capsule(s) Oral BID 07/13/19 24 No Stop Date Active venlafaxine ER 75 mg capsule,extended release 24 hr RxNorm: 400737 Take 3 Capsule(s) Oral QD 07/13/19 24 No Stop Date Active aripiprazole 15 mg tablet RxNorm: 065887 Take 1/2 Tablet(s) Oral QD 07/13/19 24 024 Inactive isosorbide mononitrate ER 60 mg tablet,extended release 24 hr RxNorm: 523836 Take 1 Tablet(s) Oral QD 07/13/19 24 024 Inactive Basaglar KwikPen U-100 Insulin 100 unit/mL (3 mL) subcutaneous RxNorm: 5671847 Inject 30U SubQ twice daily 07/07/19 24 024 Inactive Please dispense one month supply. Basaglar KwikPen U-100 Insulin 100 unit/mL (3 mL) subcutaneous RxNorm: 6999545 Inject 30U SubQ twice daily 07/07/19 24 024 Inactive Please dispense one month supply. pregabalin 150 mg capsule RxNorm: 087821 Take 1 Capsule(s) Oral QHS every night at bedtime 07/05/19 24 024 Inactive pregabalin 150 mg capsule RxNorm: 769418 Take 1 Capsule(s) Oral QHS every night at bedtime 07/05/19 24 024 Inactive polyethylene glycol 3350 17 gram/dose oral powder RxNorm: 690397 Take 1 Packet Oral QD as needed (1 packet = 17g) mix with 4-8oz of liquid 06/15/19 24 024 Inactive bisacodyl 10 mg rectal suppository RxNorm: 798765 Insert one suppository per rectum once daily as needed for constipation 06/15/19 24 024 Inactive bisacodyl 10 mg rectal suppository RxNorm: 529839 Insert one suppository per rectum once daily as needed for constipation 06/15/19 24 024 Inactive pregabalin 100 mg capsule RxNorm: 997744 Take 1 Capsule(s) Oral QAM every morning 04/27/20 024 Inactive Levemir FlexPen 100 unit/mL (3 mL) solution subcutaneous insulin pen RxNorm: 416091 Inject 30 Unit(s) Subcutaneous BID 04/27/20 024 Inactive rosuvastatin 40 mg tablet RxNorm: 582917 Take 1 Tablet(s) Oral QPM every evening 04/16/20 024 Inactive D/C rosuvastatin 20mg venlafaxine ER 75 mg capsule,extended release 24 hr RxNorm: 005472 Take 3 Capsule(s) Oral QD 04/14/20 023 Inactive pregabalin 100 mg capsule RxNorm: 909436 Take 1 Capsule(s) Oral QAM every morning [...] strip clotrimazole 1 % topical cream RxNorm: 949167 Take apply topically to abdominal folds twice daily for 14 days 03/12/20 024 Inactive Ozempic 1 mg/dose (4 mg/3 mL) subcutaneous pen injector RxNorm: 3490249 Inject 1 Milligram(s) Subcutaneous QW once a week 03/11/20 23 023 Inactive rosuvastatin 20 mg tablet RxNorm: 281700 Take 1 Tablet(s) Oral QD 02/26/20 023 Inactive d/c pravastatin 80mg Ozempic 1 mg/dose (4 mg/3 mL) subcutaneous pen injector RxNorm: 1963869 Inject 1 Milligram(s) Subcutaneous QW once a week 02/20/20 023 Inactive pregabalin 150 mg capsule RxNorm: 404733 Take 1 Capsule(s) Oral HS at bed time 02/19/20 023 Inactive pregabalin 100 mg capsule RxNorm: 794833 Take 1 Capsule(s) Oral QAM every morning 02/18/20 023 Inactive venlafaxine ER 75 mg capsule,extended release 24 hr RxNorm: 406213 Take 3 Capsule(s) Oral QD 02/04/20 023 Inactive FreeStyle Chema 2 Sensor kit RxNorm: use as directed 02/04/20 023 Inactive FreeStyle Chema 2 Sensor kit RxNorm: use as directed 02/04/20 024 Inactive fluconazole 150 mg tablet RxNorm: 369688 Take 1 Tablet(s) Oral on day 3 and on day 6 02/03/20 024 Inactive chlorthalidone 25 mg tablet RxNorm: 220736 Take 1 Tablet(s) Oral QAM every morning 02/03/20 23 No Stop Date Active venlafaxine ER 150 mg capsule,extended release 24 hr RxNorm: 692654 Take 1 Capsule(s) Oral QD 02/03/20 023 Inactive acetaminophen 500 mg tablet RxNorm: 357248 1 TABLET ORALLY 3 TIMES DAILY (MAX APAP:4GM/24HR) 12/15/19 023 Inactive clotrimazole 1 % topical cream RxNorm: 714866 apply 1g topically to top of feet and in between toes BID 12/09/19 23 023 Inactive potassium chloride ER 20 mEq tablet,extended release RxNorm: 091108 Take 1 Tablet(s) Oral BID 12/09/19 23 024 Inactive d/c 20mEq once daily (sent from hospital) nystatin 100,000 unit/gram topical powder RxNorm: 872660 APPLY TO AFFECTED AREAS TOPICALLY 2 TIMES DAILY 11/21/19 23 023 Inactive Nystop 100,000 unit/gram topical powder RxNorm: 302041 Apply to abd folds, under breasts and L side of groin Topical BID x 14 days, then BID PRN 11/20/19 023 Inactive dx: yeast dermatitis Bengay Ultra Strength 4 %-30 %-10 % topical cream RxNorm: 166841 Apply 1 Gram(s) Topical QID PRN to feet and legs for neuropathic pain 11/11/19 024 Inactive clotrimazole 1 % topical cream RxNorm: 723368 Apply 1/2 Gram(s) Topical BID Apply to affected areas of groin, periarea, and abdominal topically 2 times daily 11/10/19 023 Inactive hydrocortisone 2.5 % topical cream RxNorm: 638841 Apply 1/2 Gram(s) Topical BID as needed 11/10/19 024 Inactive Levemir FlexPen 100 unit/mL (3 mL) solution subcutaneous insulin pen RxNorm: 018324 Inject 30 Unit(s) Subcutaneous BID 10/07/19 023 Inactive Humulin R U-500 (Concentrated) Insulin 500 unit/mL subcutaneous soln RxNorm: 658841 Inject 100 Unit(s) Subcutaneous TID 10/07/19 024 Inactive Ozempic 0.25 mg or 0.5 mg (2 mg/3 mL) subcutaneous pen injector RxNorm: 4819417 Inject 1/2 Milligram(s) Subcutaneous QW once a week 10/07/19 024 Inactive aripiprazole 15 mg tablet RxNorm: 135566 1/2 TAB (7.5MG) ORALLY DAILY (DX:MAJOR DEPRESSIVE DISORDER) 09/23/19 023 Inactive Accu-Chek Guide test strips RxNorm: Use 1 Test Strip QID 09/15/19 23 023 Inactive ok to substitute with any covered alternative test strip Lancets,Thin 28 gauge RxNorm: Use 1 as directed QID 09/15/19 23 023 Inactive torsemide 20 mg tablet RxNorm: 634906 Take 1 Tablet(s) Oral BID 09/09/19 23 024 Inactive d/c once daily dosing carvedilol 25 mg tablet RxNorm: 262685 Take 1 Tablet(s) Oral QD 08/25/19 23 024 Inactive pregabalin 150 mg capsule RxNorm: 714190 1 Capsule(s) Oral HS at bed time 08/18/19 23 023 Inactive pregabalin 100 mg capsule RxNorm: 015497 1 Capsule(s) Oral QAM every morning 08/18/19 23 023 Inactive carvedilol 25 mg tablet RxNorm: 407155 1 Tablet(s) Oral QD 07/28/19 23 023 Inactive lisinopril 20 mg tablet RxNorm: 315969 Give 1 Tablet(s) Oral QD 07/28/19 23 023 Inactive Lyrica 150 mg capsule RxNorm: 222697 Take 1 Capsule(s) Oral QHS every night at bedtime 07/19/19 23 023 Inactive d/c 100mg dose Diflucan 150 mg tablet RxNorm: 949111 Take 1 Tablet(s) Oral QD repeat on day 3 and 6 07/19/19 23 023 Inactive pregabalin 100 mg capsule RxNorm: 562406 Take 1 Capsule(s) Oral QAM every morning 07/19/19 23 023 Inactive gatifloxacin 0.5 % eye drops RxNorm: 352459 Instill 1 Drop(s) as directed TID Instill 1 drop in to affected eye(s) starting 1 day prior to surgery and continue until gone (do not exceed 4 weeks). 07/13/19 23 023 Inactive carvedilol 25 mg tablet RxNorm: 502449 2 Tablet(s) Oral BID 07/13/19 23 023 Inactive Humulin R Regular U-100 Insulin 100 unit/mL injection solution RxNorm: 017440 85 Unit(s) Injection TID 07/13/19 23 023 Inactive ketorolac 0.5 % eye drops RxNorm: 398470 Instill 1 Drop(s) as directed QID Instill 1 drop into affected eye(s) 4 times daily starting 1 day prior to surgery and continue until gone (do not exceed 4 weeks). 07/13/19 23 023 Inactive Diflucan 150 mg tablet RxNorm: 395728 Take 1 Tablet(s) Oral QD repeat on day 3 and 6 06/30/19 23 023 Inactive Accu-Chek Guide test strips RxNorm: Use 1 Test Strip QID Use 1 test strip to monitor blood glucose 4 times daily and as needed. Dx:E11.42. 06/23/19 23 023 Inactive ok to substitute with any covered alternative test strip dextromethorphan-gu aifenesin 10 mg-100 mg/5 mL oral liquid RxNorm: 184577 Take 10 Milliliter(s) Oral every 4 hours as needed for cough 06/19/19 23 023 Inactive dextromethorphan-gu aifenesin 10 mg-100 mg/5 mL oral liquid RxNorm: 672855 Take 10 Milliliter(s) Oral every 4 hours as needed for cough 06/19/19 023 Inactive Lyrica 150 mg capsule RxNorm: 115364 Take 1 Capsule(s) Oral QHS every night at bedtime 06/18/19 23 023 Inactive d/c 100mg dose aripiprazole 15 mg tablet RxNorm: 905007 1/2 TAB (7.5MG) ORALLY DAILY (DX:MAJOR DEPRESSIVE DISORDER) 06/05/19 23 023 Inactive pregabalin 100 mg capsule RxNorm: 463834 1 Capsule(s) Oral QAM every morning 06/02/19 23 023 Inactive Banophen 50 mg capsule RxNorm: 8094983 Take 1 Capsule(s) Oral Q6H every 6 hours as needed 05/19/19 23 No Stop Date Active Novolog Flexpen U-100 Insulin aspart 100 unit/mL (3 mL) subcutaneous RxNorm: 3481084 Inject 10 Unit(s) Subcutaneous QHS every night at bedtime with nighttime snack 04/08/20 22 022 Inactive Novolog Flexpen U-100 Insulin aspart 100 unit/mL (3 mL) subcutaneous RxNorm: 6920328 Inject 42 Unit(s) Subcutaneous TID in addition to sliding scale 04/08/20 022 Inactive d/c 36u albuterol sulfate HFA 90 mcg/actuation aerosol inhaler RxNorm: 3694584 Take 2 Puff(s) Inhalation Q4H every four hours as needed as needed for SOB, cough, or wheezing 04/07/20 030 Active Banophen 50 mg capsule RxNorm: 6246925 Take 1 Capsule(s) Oral Q6H every 6 hours as needed 04/06/20 023 Inactive diphenhydramine 50 mg tablet RxNorm: 1355777 Take 1 Tablet(s) Oral Q6H every 6 hours as needed 04/06/20 022 Inactive diphenhydramine 50 mg tablet RxNorm: 5424276 1 Tablet(s) Oral Q6H every 6 hours as needed 04/06/20 022 Inactive Abilify 15 mg tablet RxNorm: 044398 1/2 Tablet(s) Oral QD 03/10/20 023 Inactive Shingrix (PF) 50 mcg/0.5 mL intramuscular suspension, kit RxNorm: 7357054 Administer 1/2 Milliliter(s) Intramuscular QD one time shingrix step 2 ( step 1 given 11/04/21) WITH needle - Nursing please administer upon arrival and once administered post a bridge message 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, 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, expiration 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, and lot# so we can update [facility] 02/18/20 22 022 Inactive dispense with needle Shingrix (PF) 50 mcg/0.5 mL intramuscular suspension, kit RxNorm: 9210552 Administer 1/2 Milliliter(s) Intramuscular QD one time shingrix step 2 ( step 1 given 11/04/21) WITH needle - Nursing please administer upon arrival and once administered post a bridge message 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, 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, expiration date, and lot# so we can update [facility] 02/18/20 22 022 Inactive dispense with needle polyethylene glycol 3350 17 gram/dose oral powder RxNorm: 289107 Take 17=1 capful Gram(s) Oral QD mix with 4-8oz of liquid 01/08/20 22 023 Inactive take this in addition to BID prn order Lyrica 100 mg capsule RxNorm: 176951 Take 1 Capsule(s) Oral QAM every morning 01/08/20 22 022 Inactive d/c 50mg dose acetaminophen 500 mg tablet RxNorm: 350130 Take 1 Tablet(s) Oral TID 01/08/20 22 022 Inactive d/c PRN order Lyrica 150 mg capsule RxNorm: 250739 Take 1 Capsule(s) Oral QHS every night at bedtime 01/08/20 22 023 Inactive d/c 100mg dose Abilify 5 mg tablet RxNorm: 267463 Take 1 Tablet(s) Oral QD take 1 tab po QD #30 refill 5 dx: MDD 12/12/19 22 022 Inactive Abilify 5 mg tablet RxNorm: 785139 Take 1 Tablet(s) Oral QD take 1 tab po QD #30 refill 5 dx: MDD 12/12/19 22 022 Inactive Novolog Flexpen U-100 Insulin aspart 100 unit/mL (3 mL) subcutaneous RxNorm: 3945847 Inject 42 Unit(s) Subcutaneous TID in addition to sliding scale 12/10/19 22 022 Inactive d/c 36u chlorthalidone 25 mg tablet RxNorm: 673212 Take 1 Tablet(s) Oral QAM every morning 12/10/19 22 023 Inactive pregabalin 50 mg capsule RxNorm: 863068 Take 1 Capsule(s) Oral QAM every morning 11/12/19 22 022 Inactive tetanus-diphtheria toxoids-Td 2 Lf unit-2 Lf unit/0.5 mL IM suspension RxNorm: 139 Take 0.5 Miscellaneous Intramuscular 11/12/19 22 022 Inactive need tdap - nursing to administer upon arrival pregabalin 50 mg capsule RxNorm: 747952 Take 1 Capsule(s) Oral QAM every morning 10/16/19 22 022 Inactive pregabalin 50 mg capsule RxNorm: 966829 Take 1 Capsule(s) Oral QAM every morning 10/16/19 22 022 Inactive pregabalin 50 mg capsule RxNorm: 383904 1 Capsule(s) Oral QAM every morning 10/15/19 22 Inactive Shingrix (PF) 50 mcg/0.5 mL intramuscular suspension, kit RxNorm: 0293237 Administer 1/2 Milliliter(s) Intramuscular one time Nursing please administer upon arrival and once administered post a bridge message with 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 10/09/19 22 Inactive shingrix step 1 cholecalciferol (vitamin D3) 1,250 mcg (50,000 unit) capsule RxNorm: 164580 Take 1 Capsule(s) Oral QW once a [...] aspart 100 unit/mL (3 mL) subcutaneous RxNorm: 6882664 Inject 10 Unit(s) Subcutaneous QHS every night at bedtime with nighttime snack 10/08/19 22 Inactive Shingrix (PF) 50 mcg/0.5 mL intramuscular suspension, kit RxNorm: 6563714 ADMINISTER 2-DOSE SERIES PER CDC GUIDELINES 10/08/19 22 Active Shingrix (PF) 50 mcg/0.5 mL intramuscular suspension, kit RxNorm: 8915395 ADMINISTER 2-DOSE SERIES PER CDC GUIDELINES 10/08/19 Inactive Novolog Flexpen U-100 Insulin aspart 100 unit/mL (3 mL) subcutaneous RxNorm: 2883863 Inject 36 Unit(s) Subcutaneous TID in addition to sliding scale 10/08/19 22 Inactive Novofine Autocover 30 gauge x 1/3 needle RxNorm: Use 1 Miscellaneous UD as directed Use 1 needle as directed to administer insulin 5 times a day Dx:E11.42. 10/03/19 Inactive ok to substitute with any covered alternative pen needle benzoyl peroxide 10 % topical cleanser RxNorm: 910257 Apply 1 Application Topical QD apply to face, wash rinse and dry once daily (may change to QOD if drying) 08/19/19 022 Inactive (%covered by insurance) #60ml refill 11 dx: acne benzoyl peroxide 10 % topical cleanser RxNorm: 265418 Apply 1 Application Topical QD apply to face, wash rinse and dry once daily (may change to QOD if drying) 08/19/19 022 Inactive (%covered by insurance) #60ml refill 11 dx: acne benzoyl peroxide 10 % topical cleanser RxNorm: 419000 Apply 1 Application Topical QD apply to face, wash rinse and dry once daily (may change to QOD if drying) 08/19/19 022 Inactive (%covered by insurance) #60ml refill 11 dx: acne Lyrica 50 mg capsule RxNorm: 233605 Take 1 Capsule(s) Oral QAM every morning Take 1 capsule by mouth once daily 08/19/19 22 022 Inactive benzoyl peroxide 10 % topical cleanser RxNorm: 882140 Apply 1 Application Topical QD apply to face, wash rinse and dry once daily (may change to QOD if drying) 08/19/19 022 Inactive (%covered by insurance) #60ml refill 11 dx: acne Lyrica 100 mg capsule RxNorm: 666553 Take 1 Capsule(s) Oral QHS every night at bedtime Take 1 capsule by mouth once daily at bedtime 08/19/19 22 Inactive Lyrica 100 mg capsule RxNorm: 232768 Take 1 Capsule(s) Oral QHS every night at bedtime Take 1 capsule by mouth once daily at bedtime 08/16/19 22 022 Inactive Lyrica 50 mg capsule RxNorm: 908102 Take 1 Capsule(s) Oral QAM every morning Take 1 capsule by mouth once daily 08/16/19 22 022 Inactive Levemir FlexTouch U-100 Insulin 100 unit/mL (3 mL) subcutaneous pen RxNorm: 731624 Inject 86 Unit(s) Subcutaneous BID 08/05/19 22 022 Inactive d/c 83units BID Lyrica 100 mg capsule RxNorm: 148785 Take 1 Capsule(s) Oral QHS every night at bedtime Take 1 capsule by mouth once daily at bedtime 07/14/19 22 022 Inactive Lyrica 50 mg capsule RxNorm: 013196 Take 1 Capsule(s) Oral QAM every morning Take 1 capsule by mouth once daily 07/14/19 22 022 Inactive Levemir FlexTouch U-100 Insulin 100 unit/mL (3 mL) subcutaneous pen RxNorm: 384696 Inject 83 Unit(s) Subcutaneous BID 07/08/19 22 [...] test strip hydralazine 50 mg tablet RxNorm: 895284 Take 1 Tablet(s) Oral QID 05/05/20 21 022 Inactive venlafaxine ER 225 mg tablet,extended release 24 hr RxNorm: 801519 Take 1 Tablet(s) Oral QD 05/05/20 21 021 Inactive venlafaxine ER 225 mg tablet,extended release 24 hr RxNorm: 080105 Take 1 Tablet(s) Oral QD 05/05/20 21 022 Inactive isosorbide mononitrate ER 30 mg tablet,extended release 24 hr RxNorm: 734443 Take 1 Tablet(s) Oral QD 05/05/20 024 Inactive hydralazine 50 mg tablet RxNorm: 807738 Take 1 Tablet(s) Oral QID 05/05/20 21 021 Inactive aspirin 81 mg tablet,delayed release RxNorm: 835341 Take 1 Tablet(s) Oral QD 03/31/20 21 022 Inactive Vitamin D2 1,250 mcg (50,000 unit) capsule RxNorm: 2949438 Take 1 Capsule(s) Oral QW once a week x 12 weeks 03/31/20 022 Inactive Vitamin D2 1,250 mcg (50,000 unit) capsule RxNorm: 3219127 Take 1 Capsule(s) Oral QW once a week 03/31/20 21 021 Inactive Zetia 10 mg tablet RxNorm: 866435 Take 1 Tablet(s) Oral QD 03/31/20 024 Inactive Zetia 10 mg tablet RxNorm: 240177 Take 1 Tablet(s) Oral QD 03/31/20 021 Inactive hydralazine 25 mg tablet RxNorm: 779740 Take 1 Tablet(s) Oral QID 03/31/20 021 Inactive hydralazine 25 mg tablet RxNorm: 598322 Take 1 Tablet(s) Oral QID 03/31/20 021 Inactive hydralazine 10 mg tablet RxNorm: 591723 Take 1 Tablet(s) Oral QID 03/03/20 021 Inactive cephalexin 500 mg tablet RxNorm: 957539 Take 1 Tablet(s) Oral QID 02/27/20 021 Inactive cephalexin 500 mg tablet RxNorm: 650217 Take 1 Tablet(s) Oral QID 02/27/20 021 Inactive lisinopril 40 mg tablet RxNorm: 159188 Take 1 Tablet(s) Oral QD 02/11/20 023 Inactive Eliquis 5 mg tablet RxNorm: 2376131 Take 1 Tablet(s) Oral BID 01/05/20 022 Inactive Eliquis 5 mg tablet RxNorm: 4931735 Take 2 Tablet(s) Oral QD 01/01/20 21 021 Inactive Lyrica 50 mg capsule RxNorm: 187244 Take 1 Capsule(s) Oral QAM every morning 12/24/19 21 021 Inactive Lyrica 100 mg capsule RxNorm: 326651 Take 1 Capsule(s) Oral QHS every night at bedtime 12/24/19 21 021 Inactive clotrimazole 1 % topical cream RxNorm: 190054 Apply to right foot and toes Topical BID 12/04/19 21 023 Inactive metoprolol succinate ER 200 mg tablet,extended release 24 hr RxNorm: 742106 Take 1 Tablet(s) Oral QD 12/04/19 21 023 Inactive ciprofloxacin 500 mg tablet RxNorm: 636478 Take 1 Tablet(s) Oral QD 11/30/19 21 021 Inactive DX ofloxacin otic drops Accu-Chek Guide test strips RxNorm: USE 1 TO CHECK GLUCOSE 4 TIMES DAILY AND NEEDED 11/15/19 21 023 Inactive Blood Glucose Test strips RxNorm: Use 1 Test Strip QID at PRN 11/05/19 21 023 Inactive E11.42 lisinopril 30 mg tablet RxNorm: 602388 Take 1 Tablet(s) Oral QD 10/30/19 21 021 Inactive lisinopril 20 mg tablet RxNorm: 399124 Take 1 Tablet(s) Oral QD 10/23/19 21 021 Inactive lisinopril 20 mg tablet RxNorm: 777660 Take 1 Tablet(s) Oral QD 10/23/19 21 021 Inactive lisinopril 10 mg tablet RxNorm: 809095 Take 1 Tablet(s) Oral QD 10/02/19 021 Inactive icosapent ethyl 1 gram capsule RxNorm: 8172300 Take 2 Capsule(s) (2 gm) Oral BID with meals 09/12/19 21 024 Inactive Okay to dispense one 2gm tab if you have that available. icosapent ethyl 1 gram capsule RxNorm: 1882929 Take 2 Capsule(s) Oral BID 09/12/19 21 021 Inactive Okay to dispense one 2gm tab if you have that available. amlodipine 10 mg tablet RxNorm: 629471 Take 1 Tablet(s) Oral QD 09/04/19 022 Inactive aspirin 81 mg tablet,delayed release RxNorm: 547819 Take 1 Tablet(s) Oral QD 09/04/19 21 021 Inactive Levemir FlexTouch U-100 Insulin 100 unit/mL (3 mL) subcutaneous pen RxNorm: 944212 Inject 150 Unit(s) Subcutaneous BID 09/04/19 21 022 Inactive venlafaxine ER 150 mg tablet,extended release 24 hr RxNorm: 954267 Take 1 Tablet(s) Oral QD 09/04/19 21 021 Inactive clotrimazole-betame thasone 1 %-0.05 % topical cream RxNorm: 831433 Apply to rash on red area on left abdomen/chest Topical BID 08/10/19 21 Inactive amlodipine 5 mg tablet RxNorm: 303348 Take 1 Tablet(s) Oral QD 07/31/19 21 Inactive cephalexin 500 mg tablet RxNorm: 729260 Take 1 Tablet(s) Oral BID BID - Twice Daily 07/31/19 Inactive Start 08/01/20 pantoprazole 40 mg tablet,delayed release RxNorm: 257912 Take 1 Tablet(s) Oral QAM every morning 07/08/19 Inactive senna 8.6 mg tablet RxNorm: 483520 Take 1 Tablet(s) Oral QD 07/08/19 022 Inactive carbamazepine 200 mg tablet RxNorm: 896577 Take 1 Tablet(s) Oral BID 07/08/19 Inactive clopidogrel 75 mg tablet RxNorm: 227837 Take 1 Tablet(s) Oral QD 07/08/19 021 Inactive Blood Glucose Test strips RxNorm: Use 1 Test Strip QID at PRN 07/08/19 Inactive E11.42 Novolog Flexpen U-100 Insulin aspart 100 unit/mL (3 mL) subcutaneous RxNorm: 1627282 Administer per sliding scale Milliliter(s) Subcutaneous TID 151-200: 10 u; 201-250: 20 u; 251-300: 30 u; 301-350: 40 u; 351-400: 50 u. 07/08/19 022 Inactive lisinopril 5 mg tablet RxNorm: 101230 Take 1 Tablet(s) Oral QD 07/08/19 021 Inactive Novolog Flexpen U-100 Insulin aspart 100 unit/mL (3 mL) subcutaneous RxNorm: 6072531 Inject 85 Unit(s) Subcutaneous TID 07/08/19 022 Inactive pravastatin 80 mg tablet RxNorm: 464046 Take 1 Tablet(s) Oral QHS every night at bedtime 07/08/19 023 Inactive clotrimazole 1 % topical cream RxNorm: 019398 Apply to bilateral groin areas Topical BID 07/08/19 022 Inactive metoprolol succinate ER 200 mg tablet,extended release 24 hr RxNorm: 736847 Take 1 Tablet(s) Oral QD 07/08/19 21 021 Inactive Vitamin D3 25 mcg (1,000 unit) tablet RxNorm: 133745 Take 1 Tablet(s) Oral QD 07/08/19 021 Inactive isosorbide dinitrate 30 mg tablet RxNorm: 950789 Take 1 Tablet(s) Oral QD 07/08/19 021 Inactive Levemir FlexTouch U-100 Insulin 100 unit/mL (3 mL) subcutaneous pen RxNorm: 603005 Inject 140 Unit(s) Subcutaneous BID 07/08/19 021 Inactive torsemide 20 mg tablet RxNorm: 121045 Take 1 Tablet(s) Oral QD 07/08/19 023 Inactive venlafaxine 75 mg tablet RxNorm: 454194 Take 1 Tablet(s) Oral QD 07/08/19 021 Inactive acetaminophen 500 mg tablet RxNorm: 134848 Take 1 Tablet(s) Oral TID as needed for headache 06/18/19 021 Inactive acetaminophen 500 mg tablet RxNorm: 101235 Take 1 Tablet(s) Oral TID as needed for headache 06/18/19 021 Inactive Lyrica 100 mg capsule RxNorm: 828658 Take 1 Capsule(s) Oral QHS every night at bedtime 06/11/19 021 Inactive Lyrica 50 mg capsule RxNorm: 926480 Take 1 Capsule(s) Oral QAM every morning 06/10/19 21 021 Inactive hydrocortisone 2.5 % topical cream RxNorm: 895661 Apply to bilateral groin creases Topical BID 05/15/20 20 021 Inactive clotrimazole 1 % topical cream RxNorm: 751652 Apply to bilateral groin areas Topical BID 05/15/20 20 021 Inactive Lyrica 50 mg capsule RxNorm: 401183 Take 1 Capsule(s) Oral QAM every morning 05/14/20 20 Inactive Lyrica 100 mg capsule RxNorm: 369787 Take 1 Capsule(s) Oral QHS every night [...] Inactive Nystop 100,000 unit/gram topical powder RxNorm: 876377 Apply to abd folds, under breasts and L side of groin Topical BID x 14 days, then BID PRN 04/08/20 20 Inactive dx: yeast dermatitis Lyrica 100 mg capsule RxNorm: 524920 Take 1 Capsule(s) Oral QHS every night at bedtime 03/13/20 20 Inactive Lyrica 50 mg capsule RxNorm: 085616 Take 1 Capsule(s) Oral QAM every morning 03/13/20 20 Inactive ketoconazole 2 % shampoo RxNorm: 035804 Apply Topical two times a week with showers 03/11/20 20 024 Inactive cholecalciferol (vitamin D3) 50 mcg (2,000 unit) tablet RxNorm: 047338 Take 1 Tablet(s) Oral QD 03/11/20 20 021 Inactive Zetia 10 mg tablet RxNorm: 272180 Take 1 Tablet(s) Oral QD 03/07/20 20 021 Inactive Zetia 10 mg tablet RxNorm: 507876 Take 1 Tablet(s) Oral QD 03/07/20 20 Inactive Lyrica 50 mg capsule RxNorm: 261361 Take 1 Capsule(s) Oral QAM every morning 02/15/20 20 Inactive Lyrica 100 mg capsule RxNorm: 465963 Take 1 Capsule(s) Oral QHS every night at bedtime 02/15/20 20 Inactive Lyrica 100 mg capsule RxNorm: 960908 Take 1 Capsule(s) Oral QHS every night at bedtime 02/15/20 20 Inactive Lyrica 50 mg capsule RxNorm: 643621 Take 1 Capsule(s) Oral QAM every morning 02/15/20 20 Inactive metoprolol succinate ER 200 mg tablet,extended release 24 hr RxNorm: 840678 Take 1 Tablet(s) Oral QD 08/12/19 23 Active loperamide 2 mg capsule RxNorm: 599785 Take 1 Capsule(s) Oral QID as needed 06/12/19 22 Active hydralazine 50 mg tablet RxNorm: 080028 Take 1 Tablet(s) Oral QID 08/12/19 23 Active venlafaxine ER 75 mg capsule,extended release 24 hr RxNorm: 213906 Take 3 Capsule(s) Oral QD 06/12/19 22 023 Inactive polyethylene glycol 3350 17 gram/dose oral powder RxNorm: 469047 Take 17=1 capful Gram(s) Oral BID as needed mix with 4-8oz of liquid 06/12/19 22 024 Inactive icosapent ethyl 1 gram capsule RxNorm: 7976686 Take 2 Capsule(s) (2 gm) Oral BID with meals 10/07/19 23 023 Inactive Okay to dispense one 2gm tab if you have that available. Levemir FlexTouch U-100 Insulin 100 unit/mL (3 mL) subcutaneous pen RxNorm: 722128 Inject 80 Unit(s) Subcutaneous BID 07/14/19 23 023 Inactive Novolog Flexpen U-100 Insulin aspart 100 unit/mL (3 mL) subcutaneous RxNorm: 0953710 Insert 30 Unit(s) Subcutaneous TID with meals [...] Summary Completed 03/01/2024 Appointment: Brian Munson WPtel: [address] [place], [place] [id number] [facility] 02/08/2024 Appointment: Brian Munsontel: [address] [facility] 300 [id number] [place] F/U 01/11/2024 Appointment: AmberSandra schilling WPtel: [address] [facility] 300 [id number] [place] Telehealth Psych Follow Up 12/09 Appointment: Tapan Shirley WPtel: [address] [facility] 300 [id number] [place] [facility] 10/26/2022 Referral: [facility] WPtel: [address], [address] [id number] Referral Records Received 09/21/2022 Appointment: Tapan Shirley WPtel: [address] [facility] 300 [id number] [place] F/U 08/11/2022 Appointment: Tapan Shirley WPtel: [address] [facility] 300 [id number] [place] F/U 07/14/2022 Appointment: Tapan Shirley WPtel: [address] [facility] 300 [id number] [place] F/U 02/10/2022 Referral: [facility] WPtel: [address] [id number] [place] Referral Completed 05/28/2021 Referral: General Cardiology [...] Sister Jyotsna involved in his care cell# [phone] Guardian: Giulia (tapan met in person 09/01/21), [...] Martines note from 11.08.2023 at [facility] (follow up 6 months)Colon & Rectal Surgery visit scheduled for 03/08/24 with Matilde Pérez PA-C. 02/08/2024
--- OUTSIDE RECORDS SUMMARY | 2024-03-03 15:19 | XMS_ITS | CCD ---
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 Name Role Phone Arpit MCKINLEY-C, Harrison Primary Care Provider Leona vailable Ocean PRODUCT LEAD-C, Harrison Chronic Care Management U navailable Summary Purpose DataExchange Insurance Providers Payer name Policy type / Coverage type Covered constitution party ID Effective Begin Date Effective End Date Medicare [place] Medicare Part B [id number] Unknown Unknown Medicaid [place] Medicare Part B [id number] Unknown Unknown Family history Sister Brittany Suggs Diagnosis Age At Onset No Family Disease Entered N/A Runs in the family Diagnosis Age At Onset No Known Diseases N/A Sister Blanka Mcduffie Diagnosis Age At Onset No Family Disease Entered N/A Social History Social History Element Codes Description Effec tive Dates Tobacco history SNOMED CT: 792887602 Never smoker 01/16 Sexually Active? Unknown No [...] Intermediate 09/03/[address]: 249577321 No Alcohol Consum ption 09/02/2020 Allergies, Adverse Reactions, Alerts Substance Reaction Codes Entered Date Inactivated Date Status * NO KNOWN FOOD ALLERGIES Unknown 07/13/2023 No Inactive Date Active LISINOPRIL RxNorm: 78436 02/12/2020 No Inactive Da te Active Metformin [...] E78. 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 Humulin R U-500 (Concentrated) Insulin 500 unit/mL subcutaneous soln RxNorm: 238008 Inject 100 Unit(s) Subcutaneous TID 02/10/20 24 024 Inactive pregabalin 100 mg capsule RxNorm: 427009 Take 1 Capsule(s) Oral QAM every morning 02/07/20 24 024 Active isosorbide mononitrate ER 60 mg tablet,extended release 24 hr RxNorm: 188334 Take 1 Tablet(s) Oral QD 02/01/20 24 025 Active aripiprazole 15 mg tablet RxNorm: 441745 Take 1/2 Tablet(s) Oral QD 02/01/20 24 025 Active torsemide 20 mg tablet RxNorm: 554517 1 TAB ORALLY DAILY (DX: EDEMA) 01/27/20 No Stop Date Active potassium chloride ER 20 mEq tablet,extended release(part/cryst) RxNorm: 4585257 2 TABS (40MEQ) ORALLY TWICE DAILY (DX: HYPOKALEMIA) 01/27/20 No Stop Date Active cephalexin 500 mg capsule RxNorm: 842284 Take 1 Capsule(s) Oral QID 12/17/19 24 024 Inactive cephalexin 500 mg capsule RxNorm: 950100 Take 1 Capsule(s) Oral QID 12/17/19 24 024 Inactive acetaminophen 500 mg tablet RxNorm: 209097 (MAX APAP:4GM/24HR) Take 1 Tablet(s) Oral TID as needed for pain 12/10/19 24 024 Active torsemide 20 mg tablet RxNorm: 568860 Take 1 Tablet(s) Oral QD 10/26/19 24 024 Inactive potassium chloride ER 20 mEq tablet,extended release RxNorm: 453317 Take 2 Tablet(s) Oral BID 10/26/19 24 Active torsemide 20 mg tablet RxNorm: 308046 Take 1 Tablet(s) Oral QD 10/26/19 24 024 Inactive potassium chloride ER 20 mEq tablet,extended release RxNorm: 154286 Take 2 Tablet(s) Oral BID 10/26/19 24 Inactive Artificial Tears (PF) 0.1 %-0.3 % drops in a dropperette RxNorm: 853756 Apply 1-2 Drop(s) Both eyes BID as needed 09/28/19 24 Active erythromycin 5 mg/gram (0.5 %) eye ointment RxNorm: 252907 Apply 1 Application Both eyes QHS every night at bedtime Instill ~1 cm ribbon into affected eye 09/28/19 24 024 Inactive Artificial Tears (PF) 0.1 %-0.3 % drops in a dropperette RxNorm: 751260 Apply 1-2 Drop(s) Both eyes BID as needed 09/28/19 24 024 Inactive erythromycin 5 mg/gram (0.5 %) eye ointment RxNorm: 193683 Apply 1 Application Both eyes QHS every night at bedtime Instill ~1 cm ribbon into affected eye 09/28/19 24 024 Inactive acetaminophen 500 mg tablet RxNorm: 791281 (MAX APAP:4GM/24HR) Take 1 Tablet(s) Oral TID as needed for pain 09/24/19 24 024 Inactive carvedilol 25 mg tablet RxNorm: 017954 Take 1 Tablet(s) Oral QD 09/08/19 24 No Stop Date Active pregabalin 100 mg capsule RxNorm: 327992 Take 1 Capsule(s) Oral QAM every morning 09/07/19 24 024 Inactive rosuvastatin 40 mg tablet RxNorm: 558890 Take 1 Tablet(s) Oral QPM every evening 07/13/19 24 No Stop Date Active ezetimibe 10 mg tablet RxNorm: 083111 Take 1 Tablet(s) Oral QD 07/13/19 24 No Stop Date Active bisacodyl 10 mg rectal suppository RxNorm: 686273 Insert 1 Suppository Rectal QD as needed 07/13/19 24 No Stop Date Active polyethylene glycol 3350 17 gram/dose oral powder RxNorm: 414539 Take 17 Gram(s) Oral BID as needed mix in 4-8ox water 07/13/19 24 No Stop Date Active ketoconazole 2 % shampoo RxNorm: 255588 Apply 1 Application Topical UD as directed 07/13/19 24 No Stop Date Active Ozempic 1 mg/dose (4 mg/3 mL) subcutaneous pen injector RxNorm: 4490546 Inject 1 Milligram(s) Subcutaneous QW once a week 07/13/19 24 No Stop Date Active Guaifenesin AC 10 mg-100 mg/5 mL oral liquid RxNorm: 662238 Take 10 Milliliter(s) Oral Q4H every four hours as needed 07/13/19 24 No Stop Date Active ammonium lactate 12 % topical cream RxNorm: 245674 Apply 1 Application Topical BID 07/13/19 24 No Stop Date Active hydrocortisone 2.5 % topical cream RxNorm: 912702 Apply 1 Application Topical BID as needed 07/13/19 24 No Stop Date Active rosuvastatin 20 mg sprinkle capsule RxNorm: 9389141 Take 1 Capsule(s) Oral QD 07/13/19 24 No Stop Date Active Vascepa 1 gram capsule RxNorm: 7450011 Take 2 Capsule(s) Oral BID 07/13/19 24 No Stop Date Active venlafaxine ER 75 mg capsule,extended release 24 hr RxNorm: 982398 Take 3 Capsule(s) Oral QD 07/13/19 24 No Stop Date Active aripiprazole 15 mg tablet RxNorm: 085755 Take 1/2 Tablet(s) Oral QD 07/13/19 24 024 Inactive isosorbide mononitrate ER 60 mg tablet,extended release 24 hr RxNorm: 960173 Take 1 Tablet(s) Oral QD 07/13/19 24 024 Inactive Basaglar KwikPen U-100 Insulin 100 unit/mL (3 mL) subcutaneous RxNorm: 6444234 Inject 30U SubQ twice daily 07/07/19 24 024 Inactive Please dispense one month supply. Basaglar KwikPen U-100 Insulin 100 unit/mL (3 mL) subcutaneous RxNorm: 8861597 Inject 30U SubQ twice daily 07/07/19 24 024 Inactive Please dispense one month supply. pregabalin 150 mg capsule RxNorm: 996382 Take 1 Capsule(s) Oral QHS every night at bedtime 07/05/19 24 024 Inactive pregabalin 150 mg capsule RxNorm: 433092 Take 1 Capsule(s) Oral QHS every night at bedtime 07/05/19 24 024 Inactive polyethylene glycol 3350 17 gram/dose oral powder RxNorm: 167808 Take 1 Packet Oral QD as needed (1 packet = 17g) mix with 4-8oz of liquid 06/15/19 24 024 Inactive bisacodyl 10 mg rectal suppository RxNorm: 792901 Insert one suppository per rectum once daily as needed for constipation 06/15/19 24 024 Inactive bisacodyl 10 mg rectal suppository RxNorm: 898798 Insert one suppository per rectum once daily as needed for constipation 06/15/19 24 024 Inactive pregabalin 100 mg capsule RxNorm: 959485 Take 1 Capsule(s) Oral QAM every morning 04/27/20 23 024 Inactive Levemir FlexPen 100 unit/mL (3 mL) solution subcutaneous insulin pen RxNorm: 644230 Inject 30 Unit(s) Subcutaneous BID 04/27/20 23 024 Inactive rosuvastatin 40 mg tablet RxNorm: 269990 Take 1 Tablet(s) Oral QPM every evening 04/16/20 024 Inactive D/C rosuvastatin 20mg venlafaxine ER 75 mg capsule,extended release 24 hr RxNorm: 410226 Take 3 Capsule(s) Oral QD 04/14/20 23 023 Inactive pregabalin 100 mg capsule RxNorm: 498057 Take 1 Capsule(s) Oral QAM every morning [...] strip clotrimazole 1 % topical cream RxNorm: 908063 Take apply topically to abdominal folds twice daily for 14 days 03/12/20 024 Inactive Ozempic 1 mg/dose (4 mg/3 mL) subcutaneous pen injector RxNorm: 4804935 Inject 1 Milligram(s) Subcutaneous QW once a week 03/11/20 023 Inactive rosuvastatin 20 mg tablet RxNorm: 857865 Take 1 Tablet(s) Oral QD 02/26/20 23 023 Inactive d/c pravastatin 80mg Ozempic 1 mg/dose (4 mg/3 mL) subcutaneous pen injector RxNorm: 5630236 Inject 1 Milligram(s) Subcutaneous QW once a week 02/20/20 23 023 Inactive pregabalin 150 mg capsule RxNorm: 151211 Take 1 Capsule(s) Oral HS at bed time 02/19/20 23 023 Inactive pregabalin 100 mg capsule RxNorm: 373743 Take 1 Capsule(s) Oral QAM every morning 02/18/20 023 Inactive venlafaxine ER 75 mg capsule,extended release 24 hr RxNorm: 210191 Take 3 Capsule(s) Oral QD 02/04/20 23 023 Inactive FreeStyle Chema 2 Sensor kit RxNorm: use as directed 02/04/20 23 023 Inactive FreeStyle Chema 2 Sensor kit RxNorm: use as directed 02/04/20 23 024 Inactive fluconazole 150 mg tablet RxNorm: 912621 Take 1 Tablet(s) Oral on day 3 and on day 6 02/03/20 23 024 Inactive chlorthalidone 25 mg tablet RxNorm: 019586 Take 1 Tablet(s) Oral QAM every morning 02/03/20 23 No Stop Date Active venlafaxine ER 150 mg capsule,extended release 24 hr RxNorm: 217711 Take 1 Capsule(s) Oral QD 02/03/20 23 023 Inactive acetaminophen 500 mg tablet RxNorm: 695179 1 TABLET ORALLY 3 TIMES DAILY (MAX APAP:4GM/24HR) 12/15/19 23 023 Inactive clotrimazole 1 % topical cream RxNorm: 249047 apply 1g topically to top of feet and in between toes BID 12/09/19 23 023 Inactive potassium chloride ER 20 mEq tablet,extended release RxNorm: 492014 Take 1 Tablet(s) Oral BID 12/09/19 23 024 Inactive d/c 20mEq once daily (sent from hospital) nystatin 100,000 unit/gram topical powder RxNorm: 183350 APPLY TO AFFECTED AREAS TOPICALLY 2 TIMES DAILY 11/21/19 23 023 Inactive Nystop 100,000 unit/gram topical powder RxNorm: 821965 Apply to abd folds, under breasts and L side of groin Topical BID x 14 days, then BID PRN 11/20/19 023 Inactive dx: yeast dermatitis [place] Ultra Strength 4 %-30 %-10 % topical cream RxNorm: 916823 Apply 1 Gram(s) Topical QID PRN to feet and legs for neuropathic pain 11/11/19 23 024 Inactive clotrimazole 1 % topical cream RxNorm: 593220 Apply 1/2 Gram(s) Topical BID Apply to affected areas of groin, periarea, and abdominal topically 2 times daily 11/10/19 23 023 Inactive hydrocortisone 2.5 % topical cream RxNorm: 956542 Apply 1/2 Gram(s) Topical BID as needed 11/10/19 024 Inactive Levemir FlexPen 100 unit/mL (3 mL) solution subcutaneous insulin pen RxNorm: 298519 Inject 30 Unit(s) Subcutaneous BID 10/07/19 23 023 Inactive Humulin R U-500 (Concentrated) Insulin 500 unit/mL subcutaneous soln RxNorm: 750952 Inject 100 Unit(s) Subcutaneous TID 05/23 024 Inactive Ozempic 0.25 mg or 0.5 mg (2 mg/3 mL) subcutaneous pen injector RxNorm: 3853878 Inject 1/2 Milligram(s) Subcutaneous QW once a week 10/07/19 024 Inactive aripiprazole 15 mg tablet RxNorm: 164962 1/2 TAB (7.5MG) ORALLY DAILY (DX:MAJOR DEPRESSIVE DISORDER) 09/23/19 023 Inactive Accu-Chek Guide test strips RxNorm: Use 1 Test Strip QID 09/15/19 023 Inactive ok to substitute with any covered alternative test strip Lancets,Thin 28 gauge RxNorm: Use 1 as directed QID 09/15/19 023 Inactive torsemide 20 mg tablet RxNorm: 920567 Take 1 Tablet(s) Oral BID 09/09/19 024 Inactive d/c once daily dosing carvedilol 25 mg tablet RxNorm: 188752 Take 1 Tablet(s) Oral QD 08/25/19 23 024 Inactive pregabalin 150 mg capsule RxNorm: 814212 1 Capsule(s) Oral HS at bed time 08/18/19 023 Inactive pregabalin 100 mg capsule RxNorm: 288462 1 Capsule(s) Oral QAM every morning 08/18/19 023 Inactive carvedilol 25 mg tablet RxNorm: 460290 1 Tablet(s) Oral QD 07/28/19 023 Inactive lisinopril 20 mg tablet RxNorm: 659290 Give 1 Tablet(s) Oral QD 07/28/19 23 023 Inactive Lyrica 150 mg capsule RxNorm: 250823 Take 1 Capsule(s) Oral QHS every night at bedtime 07/19/19 023 Inactive d/c 100mg dose Diflucan 150 mg tablet RxNorm: 601912 Take 1 Tablet(s) Oral QD repeat on day 3 and 6 07/19/19 23 023 Inactive pregabalin 100 mg capsule RxNorm: 561854 Take 1 Capsule(s) Oral QAM every morning 07/19/19 23 023 Inactive gatifloxacin 0.5 % eye drops RxNorm: 698288 Instill 1 Drop(s) as directed TID Instill 1 drop in to affected eye(s) starting 1 day prior to surgery and continue until gone (do not exceed 4 weeks). 07/13/19 23 023 Inactive carvedilol 25 mg tablet RxNorm: 566845 2 Tablet(s) Oral BID 07/13/19 023 Inactive Humulin R Regular U-100 Insulin 100 unit/mL injection solution RxNorm: 001612 85 Unit(s) Injection TID 07/13/19 23 023 Inactive ketorolac 0.5 % eye drops RxNorm: 911046 Instill 1 Drop(s) as directed QID Instill 1 drop into affected eye(s) 4 times daily starting 1 day prior to surgery and continue until gone (do not exceed 4 weeks). 07/13/19 023 Inactive Diflucan 150 mg tablet RxNorm: 195495 Take 1 Tablet(s) Oral QD repeat on day 3 and 6 06/30/19 23 023 Inactive Accu-Chek Guide test strips RxNorm: Use 1 Test Strip QID Use 1 test strip to monitor blood glucose 4 times daily and as needed. Dx:E11.42. 06/23/19 23 023 Inactive ok to substitute with any covered alternative test strip dextromethorphan-gu aifenesin 10 mg-100 mg/5 mL oral liquid RxNorm: 183237 Take 10 Milliliter(s) Oral every 4 hours as needed for cough 06/19/19 23 023 Inactive dextromethorphan-gu aifenesin 10 mg-100 mg/5 mL oral liquid RxNorm: 414030 Take 10 Milliliter(s) Oral every 4 hours as needed for cough 06/19/19 23 023 Inactive Lyrica 150 mg capsule RxNorm: 340361 Take 1 Capsule(s) Oral QHS every night at bedtime 06/18/19 23 023 Inactive d/c 100mg dose aripiprazole 15 mg tablet RxNorm: 481425 1/2 TAB (7.5MG) ORALLY DAILY (DX:MAJOR DEPRESSIVE DISORDER) 06/05/19 023 Inactive pregabalin 100 mg capsule RxNorm: 081525 1 Capsule(s) Oral QAM every morning 06/02/19 023 Inactive Banophen 50 mg capsule RxNorm: 7013814 Take 1 Capsule(s) Oral Q6H every 6 hours as needed 05/19/19 No Stop Date Active Novolog Flexpen U-100 Insulin aspart 100 unit/mL (3 mL) subcutaneous RxNorm: 3795228 Inject 10 Unit(s) Subcutaneous QHS every night at bedtime with nighttime snack 04/08/20 022 Inactive Novolog Flexpen U-100 Insulin aspart 100 unit/mL (3 mL) subcutaneous RxNorm: 8162903 Inject 42 Unit(s) Subcutaneous TID in addition to sliding scale 04/08/20 022 Inactive d/c 36u albuterol sulfate HFA 90 mcg/actuation aerosol inhaler RxNorm: 5228739 Take 2 Puff(s) Inhalation Q4H every four hours as needed as needed for SOB, cough, or wheezing 04/07/20 030 Active Banophen 50 mg capsule RxNorm: 3814496 Take 1 Capsule(s) Oral Q6H every 6 hours as needed 04/06/20 023 Inactive diphenhydramine 50 mg tablet RxNorm: 2041447 Take 1 Tablet(s) Oral Q6H every 6 hours as needed 04/06/20 22 022 Inactive diphenhydramine 50 mg tablet RxNorm: 5835402 1 Tablet(s) Oral Q6H every 6 hours as needed 04/06/20 022 Inactive Abilify 15 mg tablet RxNorm: 851652 1/2 Tablet(s) Oral QD 03/10/20 023 Inactive Shingrix (PF) 50 mcg/0.5 mL intramuscular suspension, kit RxNorm: 2625286 Administer 1/2 Milliliter(s) Intramuscular QD one time shingrix step 2 ( step 1 given 11/04/21) WITH needle - Nursing please administer upon arrival and once administered post a bridge message with date of administration, electrolysis investigator, expiration date, and lot# so we can update [facility] 02/18/20 22 022 Inactive dispense with needle Shingrix (PF) 50 mcg/0.5 mL intramuscular suspension, kit RxNorm: 6131234 Administer 1/2 Milliliter(s) Intramuscular QD one time shingrix step 2 ( step 1 given 11/04/21) WITH needle - Nursing please administer upon arrival and once administered post a bridge message with date of administration, electrolysis investigator, expiration date, and lot# so we can update [facility] 02/18/20 22 022 Inactive dispense with needle polyethylene glycol 3350 17 gram/dose oral powder RxNorm: 998917 Take 17=1 capful Gram(s) Oral QD mix with 4-8oz of liquid 01/08/20 22 023 Inactive take this in addition to BID prn order Lyrica 100 mg capsule RxNorm: 066212 Take 1 Capsule(s) Oral QAM every morning 01/08/20 22 022 Inactive d/c 50mg dose acetaminophen 500 mg tablet RxNorm: 456688 Take 1 Tablet(s) Oral TID 01/08/20 22 022 Inactive d/c PRN order Lyrica 150 mg capsule RxNorm: 606377 Take 1 Capsule(s) Oral QHS every night at bedtime 01/08/20 22 023 Inactive d/c 100mg dose Abilify 5 mg tablet RxNorm: 307026 Take 1 Tablet(s) Oral QD take 1 tab po QD #30 refill 5 dx: MDD 12/12/19 22 022 Inactive Abilify 5 mg tablet RxNorm: 024256 Take 1 Tablet(s) Oral QD take 1 tab po QD #30 refill 5 dx: MDD 12/12/19 22 022 Inactive Novolog Flexpen U-100 Insulin aspart 100 unit/mL (3 mL) subcutaneous RxNorm: 9382000 Inject 42 Unit(s) Subcutaneous TID in addition to sliding scale 12/10/19 22 022 Inactive d/c 36u chlorthalidone 25 mg tablet RxNorm: 435513 Take 1 Tablet(s) Oral QAM every morning 12/10/19 22 023 Inactive pregabalin 50 mg capsule RxNorm: 595543 Take 1 Capsule(s) Oral QAM every morning 11/12/19 22 022 Inactive tetanus-diphtheria toxoids-Td 2 Lf unit-2 Lf unit/0.5 mL IM suspension RxNorm: 139 Take 0.5 Miscellaneous Intramuscular 11/12/19 22 022 Inactive need tdap - nursing to administer upon arrival pregabalin 50 mg capsule RxNorm: 787186 Take 1 Capsule(s) Oral QAM every morning 10/16/19 22 022 Inactive pregabalin 50 mg capsule RxNorm: 809339 Take 1 Capsule(s) Oral QAM every morning 10/16/19 22 022 Inactive pregabalin 50 mg capsule RxNorm: 260752 1 Capsule(s) Oral QAM every morning 10/15/19 22 022 Inactive Shingrix (PF) 50 mcg/0.5 mL intramuscular suspension, kit RxNorm: 2913582 Administer 1/2 Milliliter(s) Intramuscular one time Nursing please administer upon arrival and once administered post a bridge message with date of administration, electrolysis investigator, expiration date, and lot# so we can update [facility]. 10/09/19 22 022 Inactive shingrix step 1 Shingrix (PF) 50 mcg/0.5 mL intramuscular suspension, kit RxNorm: 4015551 Administer 1/2 Milliliter(s) Intramuscular one time Nursing please administer upon arrival and once administered post a bridge message with date of administration, electrolysis investigator, expiration date, and lot# so we can update [facility]. 10/09/19 22 022 Inactive shingrix step 1 cholecalciferol (vitamin D3) 1,250 mcg (50,000 unit) capsule RxNorm: 914103 Take 1 Capsule(s) Oral QW once a [...] aspart 100 unit/mL (3 mL) subcutaneous RxNorm: 6134980 Inject 10 Unit(s) Subcutaneous QHS every night at bedtime with nighttime snack 10/08/19 22 Inactive Shingrix (PF) 50 mcg/0.5 mL intramuscular suspension, kit RxNorm: 6814478 ADMINISTER 2-DOSE SERIES PER CDC GUIDELINES 10/08/19 22 Active Shingrix (PF) 50 mcg/0.5 mL intramuscular suspension, kit RxNorm: 7339270 ADMINISTER 2-DOSE SERIES PER CDC GUIDELINES 10/08/19 22 Inactive Novolog Flexpen U-100 Insulin aspart 100 unit/mL (3 mL) subcutaneous RxNorm: 3324406 Inject 36 Unit(s) Subcutaneous TID in addition to sliding scale 10/08/19 22 Inactive Novofine Autocover 30 gauge x 1/3 needle RxNorm: Use 1 Miscellaneous UD as directed Use 1 needle as directed to administer insulin 5 times a day Dx:E11.42. 10/03/19 Inactive ok to substitute with any covered alternative pen needle benzoyl peroxide 10 % topical cleanser RxNorm: 078442 Apply 1 Application Topical QD apply to face, wash rinse and dry once daily (may change to QOD if drying) 08/19/19 22 022 Inactive (%covered by insurance) #60ml refill 11 dx: acne benzoyl peroxide 10 % topical cleanser RxNorm: 524985 Apply 1 Application Topical QD apply to face, wash rinse and dry once daily (may change to QOD if drying) 08/19/19 22 022 Inactive (%covered by insurance) #60ml refill 11 dx: acne benzoyl peroxide 10 % topical cleanser RxNorm: 923005 Apply 1 Application Topical QD apply to face, wash rinse and dry once daily (may change to QOD if drying) 08/19/19 22 022 Inactive (%covered by insurance) #60ml refill 11 dx: acne Lyrica 50 mg capsule RxNorm: 386745 Take 1 Capsule(s) Oral QAM every morning Take 1 capsule by mouth once daily 08/19/19 22 022 Inactive benzoyl peroxide 10 % topical cleanser RxNorm: 505144 Apply 1 Application Topical QD apply to face, wash rinse and dry once daily (may change to QOD if drying) 08/19/19 22 022 Inactive (%covered by insurance) #60ml refill 11 dx: acne Lyrica 100 mg capsule RxNorm: 955366 Take 1 Capsule(s) Oral QHS every night at bedtime Take 1 capsule by mouth once daily at bedtime 08/19/19 22 022 Inactive Lyrica 100 mg capsule RxNorm: 827244 Take 1 Capsule(s) Oral QHS every night at bedtime Take 1 capsule by mouth once daily at bedtime 08/16/19 22 022 Inactive Lyrica 50 mg capsule RxNorm: 414950 Take 1 Capsule(s) Oral QAM every morning Take 1 capsule by mouth once daily 08/16/19 22 Inactive Levemir FlexTouch U-100 Insulin 100 unit/mL (3 mL) subcutaneous pen RxNorm: 116999 Inject 86 Unit(s) Subcutaneous BID 08/05/19 22 022 Inactive d/c 83units BID Lyrica 100 mg capsule RxNorm: 029610 Take 1 Capsule(s) Oral QHS every night at bedtime Take 1 capsule by mouth once daily at bedtime 07/14/19 022 Inactive Lyrica 50 mg capsule RxNorm: 532187 Take 1 Capsule(s) Oral QAM every morning Take 1 capsule by mouth once daily 07/14/19 22 022 Inactive Levemir FlexTouch U-100 Insulin 100 unit/mL (3 mL) subcutaneous pen RxNorm: 229573 Inject 83 Unit(s) Subcutaneous BID 07/08/19 22 [...] test strip hydralazine 50 mg tablet RxNorm: 389585 Take 1 Tablet(s) Oral QID 05/05/20 21 022 Inactive venlafaxine ER 225 mg tablet,extended release 24 hr RxNorm: 065032 Take 1 Tablet(s) Oral QD 05/05/20 21 021 Inactive venlafaxine ER 225 mg tablet,extended release 24 hr RxNorm: 154200 Take 1 Tablet(s) Oral QD 05/05/20 21 022 Inactive isosorbide mononitrate ER 30 mg tablet,extended release 24 hr RxNorm: 242867 Take 1 Tablet(s) Oral QD 05/05/20 024 Inactive hydralazine 50 mg tablet RxNorm: 672619 Take 1 Tablet(s) Oral QID 05/05/20 21 021 Inactive aspirin 81 mg tablet,delayed release RxNorm: 917912 Take 1 Tablet(s) Oral QD 03/31/20 022 Inactive Vitamin D2 1,250 mcg (50,000 unit) capsule RxNorm: 3848850 Take 1 Capsule(s) Oral QW once a week x 12 weeks 03/31/20 022 Inactive Vitamin D2 1,250 mcg (50,000 unit) capsule RxNorm: 0915929 Take 1 Capsule(s) Oral QW once a week 03/31/20 021 Inactive Zetia 10 mg tablet RxNorm: 844173 Take 1 Tablet(s) Oral QD 03/31/20 024 Inactive Zetia 10 mg tablet RxNorm: 135744 Take 1 Tablet(s) Oral QD 03/31/20 021 Inactive hydralazine 25 mg tablet RxNorm: 857721 Take 1 Tablet(s) Oral QID 03/31/20 21 021 Inactive hydralazine 25 mg tablet RxNorm: 580360 Take 1 Tablet(s) Oral QID 03/31/20 021 Inactive hydralazine 10 mg tablet RxNorm: 930891 Take 1 Tablet(s) Oral QID 03/03/20 021 Inactive cephalexin 500 mg tablet RxNorm: 838855 Take 1 Tablet(s) Oral QID 02/27/20 21 021 Inactive cephalexin 500 mg tablet RxNorm: 411988 Take 1 Tablet(s) Oral QID 02/27/20 021 Inactive lisinopril 40 mg tablet RxNorm: 234753 Take 1 Tablet(s) Oral QD 02/11/20 21 023 Inactive Eliquis 5 mg tablet RxNorm: 8705506 Take 1 Tablet(s) Oral BID 01/05/20 21 022 Inactive Eliquis 5 mg tablet RxNorm: 1940672 Take 2 Tablet(s) Oral QD 01/01/20 21 021 Inactive Lyrica 50 mg capsule RxNorm: 439140 Take 1 Capsule(s) Oral QAM every morning 12/24/19 21 021 Inactive Lyrica 100 mg capsule RxNorm: 391235 Take 1 Capsule(s) Oral QHS every night at bedtime 12/24/19 21 021 Inactive clotrimazole 1 % topical cream RxNorm: 983746 Apply to right foot and toes Topical BID 12/04/19 21 023 Inactive metoprolol succinate ER 200 mg tablet,extended release 24 hr RxNorm: 205030 Take 1 Tablet(s) Oral QD 12/04/19 21 023 Inactive ciprofloxacin 500 mg tablet RxNorm: 164365 Take 1 Tablet(s) Oral QD 11/30/19 21 021 Inactive DX ofloxacin otic drops Accu-Chek Guide test strips RxNorm: USE 1 TO CHECK GLUCOSE 4 TIMES DAILY AND NEEDED 11/15/19 21 023 Inactive Blood Glucose Test strips RxNorm: Use 1 Test Strip QID at PRN 11/05/19 21 023 Inactive E11.42 lisinopril 30 mg tablet RxNorm: 041342 Take 1 Tablet(s) Oral QD 10/30/19 021 Inactive lisinopril 20 mg tablet RxNorm: 282724 Take 1 Tablet(s) Oral QD 10/23/19 021 Inactive lisinopril 20 mg tablet RxNorm: 503594 Take 1 Tablet(s) Oral QD 10/23/19 21 021 Inactive lisinopril 10 mg tablet RxNorm: 067150 Take 1 Tablet(s) Oral QD 10/02/19 21 021 Inactive icosapent ethyl 1 gram capsule RxNorm: 2408576 Take 2 Capsule(s) (2 gm) Oral BID with meals 09/12/19 21 024 Inactive Okay to dispense one 2gm tab if you have that available. icosapent ethyl 1 gram capsule RxNorm: 0628652 Take 2 Capsule(s) Oral BID 09/12/19 021 Inactive Okay to dispense one 2gm tab if you have that available. amlodipine 10 mg tablet RxNorm: 052875 Take 1 Tablet(s) Oral QD 09/04/19 022 Inactive aspirin 81 mg tablet,delayed release RxNorm: 384057 Take 1 Tablet(s) Oral QD 09/04/19 Inactive Levemir FlexTouch U-100 Insulin 100 unit/mL (3 mL) subcutaneous pen RxNorm: 409145 Inject 150 Unit(s) Subcutaneous BID 09/04/19 21 022 Inactive venlafaxine ER 150 mg tablet,extended release 24 hr RxNorm: 276684 Take 1 Tablet(s) Oral QD 09/04/19 021 Inactive clotrimazole-betame thasone 1 %-0.05 % topical cream RxNorm: 192839 Apply to rash on red area on left abdomen/chest Topical BID 08/10/19 Inactive amlodipine 5 mg tablet RxNorm: 637273 Take 1 Tablet(s) Oral QD 07/31/19 021 Inactive cephalexin 500 mg tablet RxNorm: 417218 Take 1 Tablet(s) Oral BID BID - Twice Daily 07/31/19 21 021 Inactive Start 08/01/20 pantoprazole 40 mg tablet,delayed release RxNorm: 895025 Take 1 Tablet(s) Oral QAM every morning 07/08/19 022 Inactive senna 8.6 mg tablet RxNorm: 779624 Take 1 Tablet(s) Oral QD 07/08/19 022 Inactive carbamazepine 200 mg tablet RxNorm: 649001 Take 1 Tablet(s) Oral BID 07/08/19 022 Inactive clopidogrel 75 mg tablet RxNorm: 125748 Take 1 Tablet(s) Oral QD 07/08/19 21 021 Inactive Blood Glucose Test strips RxNorm: Use 1 Test Strip QID at PRN 07/08/19 21 021 Inactive E11.42 Novolog Flexpen U-100 Insulin aspart 100 unit/mL (3 mL) subcutaneous RxNorm: 4335034 Administer per sliding scale Milliliter(s) Subcutaneous TID 151-200: 10 u; 201-250: 20 u; 251-300: 30 u; 301-350: 40 u; 351-400: 50 u. 07/08/19 21 022 Inactive lisinopril 5 mg tablet RxNorm: 474658 Take 1 Tablet(s) Oral QD 07/08/19 021 Inactive Novolog Flexpen U-100 Insulin aspart 100 unit/mL (3 mL) subcutaneous RxNorm: 8262521 Inject 85 Unit(s) Subcutaneous TID 07/08/19 022 Inactive pravastatin 80 mg tablet RxNorm: 725523 Take 1 Tablet(s) Oral QHS every night at bedtime 07/08/19 023 Inactive clotrimazole 1 % topical cream RxNorm: 984997 Apply to bilateral groin areas Topical BID 07/08/19 022 Inactive metoprolol succinate ER 200 mg tablet,extended release 24 hr RxNorm: 090699 Take 1 Tablet(s) Oral QD 07/08/19 021 Inactive Vitamin D3 25 mcg (1,000 unit) tablet RxNorm: 613052 Take 1 Tablet(s) Oral QD 07/08/19 021 Inactive isosorbide dinitrate 30 mg tablet RxNorm: 888323 Take 1 Tablet(s) Oral QD 07/08/19 021 Inactive Levemir FlexTouch U-100 Insulin 100 unit/mL (3 mL) subcutaneous pen RxNorm: 709609 Inject 140 Unit(s) Subcutaneous BID 07/08/19 021 Inactive torsemide 20 mg tablet RxNorm: 055165 Take 1 Tablet(s) Oral QD 07/08/19 21 023 Inactive venlafaxine 75 mg tablet RxNorm: 349905 Take 1 Tablet(s) Oral QD 07/08/19 21 021 Inactive acetaminophen 500 mg tablet RxNorm: 789746 Take 1 Tablet(s) Oral TID as needed for headache 06/18/19 21 021 Inactive acetaminophen 500 mg tablet RxNorm: 506148 Take 1 Tablet(s) Oral TID as needed for headache 06/18/19 21 021 Inactive Lyrica 100 mg capsule RxNorm: 259758 Take 1 Capsule(s) Oral QHS every night at bedtime 06/11/19 21 021 Inactive Lyrica 50 mg capsule RxNorm: 040823 Take 1 Capsule(s) Oral QAM every morning 06/10/19 21 021 Inactive hydrocortisone 2.5 % topical cream RxNorm: 578114 Apply to bilateral groin creases Topical BID 05/15/20 20 021 Inactive clotrimazole 1 % topical cream RxNorm: 954937 Apply to bilateral groin areas Topical BID 05/15/20 20 021 Inactive Lyrica 50 mg capsule RxNorm: 770083 Take 1 Capsule(s) Oral QAM every morning 05/14/20 20 020 Inactive Lyrica 100 mg capsule RxNorm: 393060 Take 1 Capsule(s) Oral QHS every night [...] Inactive Nystop 100,000 unit/gram topical powder RxNorm: 423556 Apply to abd folds, under breasts and L side of groin Topical BID x 14 days, then BID PRN 04/08/20 20 020 Inactive dx: yeast dermatitis Lyrica 100 mg capsule RxNorm: 353463 Take 1 Capsule(s) Oral QHS every night at bedtime 03/13/20 20 Inactive Lyrica 50 mg capsule RxNorm: 256388 Take 1 Capsule(s) Oral QAM every morning 03/13/20 20 Inactive ketoconazole 2 % shampoo RxNorm: 873324 Apply Topical two times a week with showers 03/11/20 20 Inactive cholecalciferol (vitamin D3) 50 mcg (2,000 unit) tablet RxNorm: 238951 Take 1 Tablet(s) Oral QD 03/11/20 20 Inactive Zetia 10 mg tablet RxNorm: 503344 Take 1 Tablet(s) Oral QD 03/07/20 20 021 Inactive Zetia 10 mg tablet RxNorm: 073950 Take 1 Tablet(s) Oral QD 03/07/20 20 Inactive Lyrica 50 mg capsule RxNorm: 361799 Take 1 Capsule(s) Oral QAM every morning 02/15/20 20 Inactive Lyrica 100 mg capsule RxNorm: 226994 Take 1 Capsule(s) Oral QHS every night at bedtime 02/15/20 20 Inactive Lyrica 100 mg capsule RxNorm: 095034 Take 1 Capsule(s) Oral QHS every night at bedtime 02/15/20 20 Inactive Lyrica 50 mg capsule RxNorm: 297409 Take 1 Capsule(s) Oral QAM every morning 02/15/20 20 Inactive metoprolol succinate ER 200 mg tablet,extended release 24 hr RxNorm: 304555 Take 1 Tablet(s) Oral QD 08/12/19 23 Active loperamide 2 mg capsule RxNorm: 281048 Take 1 Capsule(s) Oral QID as needed 06/12/19 22 Active hydralazine 50 mg tablet RxNorm: 342345 Take 1 Tablet(s) Oral QID 08/12/19 23 Active venlafaxine ER 75 mg capsule,extended release 24 hr RxNorm: 646026 Take 3 Capsule(s) Oral QD 06/12/19 22 023 Inactive polyethylene glycol 3350 17 gram/dose oral powder RxNorm: 894439 Take 17=1 capful Gram(s) Oral BID as needed mix with 4-8oz of liquid 06/12/19 22 024 Inactive icosapent ethyl 1 gram capsule RxNorm: 1204815 Take 2 Capsule(s) (2 gm) Oral BID with meals 10/07/19 23 023 Inactive Okay to dispense one 2gm tab if you have that available. Levemir FlexTouch U-100 Insulin 100 unit/mL (3 mL) subcutaneous pen RxNorm: 714404 Inject 80 Unit(s) Subcutaneous BID 07/14/19 23 023 Inactive Novolog Flexpen U-100 Insulin aspart 100 unit/mL (3 mL) subcutaneous RxNorm: 8246912 Insert 30 Unit(s) Subcutaneous TID with meals [...] [facility] WPt[facility]: [phone] [id number] [place] Referral Records Received 09/21/2022 Referral: [facility] [place]: [address] [place] [address] [id number] [place] Referral Completed 05/28/2021 Referral: General Cardiology [...] Sister Jyotsna involved in his care cell# [phone] Guardian: Giulia (tapan met in person 09/01/21), now has Lexii (same group as giulia)AWV 02.08.2024. Lab Schedule: Mar-/September*September (CBC with diff, CMP, A1c) March: (CBC, CMP, A1c, Lipids, VitD)10.15.2023: CBC, CMP Na 139, K2.6L, creat 1.45H, eGFR 54L, BG 513H, A1c, VitD 32. 6.: BMP Na 140, K3.7, BG 397 H. BUN 24H, Creat 1.09, eGFR 76L. .: ER labs CBC, CMP K 3.9 Creat 1.0 eGFR 84 BG 395H6.: CT scan umbilical hernia and pulmonary nodule (solid 4 mm LLL and LLL calcified granuloma) will need CT scan w/o contrast in 1 year to monitor growth (due )Dr. Martines note from 11.08.2023 at [facility] (follow up 6 months)Colon & Rectal Surgery visit scheduled for 03/08/24 with Matilde Pérez PA-C. 02/08/2024
--- OUTSIDE RECORDS SUMMARY | 2024-03-03 15:20 | XMS_ITS | CCD ---
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 Enlisted Advisor Name Role Phone Arpit MCKINLEY-C, [facility] Primary Care Provider Leona vailable [place] [employer], [facility] Chronic Care Management U navailable Summary Purpose DataExchange Insurance Providers Payer name Policy type / Coverage type Covered democrat ID Effective Begin Date Effective End Date [place] Medicare Part B [id number] Unknown Unknown Medicaid [place] Medicare Part B [id number] Unknown Unknown Family history Sister Brittany Suggs Diagnosis Age At Onset No Family Disease Entered N/A Runs in the family Diagnosis Age At Onset No Known Diseases N/A Sister Blanka Mcduffie Diagnosis Age At Onset No Family Disease Entered N/A Social History Social History Element Codes Description Effec tive Dates Tobacco history SNOMED CT: 922064464 Never smoker 01/16 Sexually Active? Unknown No [...] 10/07/2021 Living arrangements Unknown [facility] 09/03/[address]: 285598028 No Alcohol Consum ption 09/02/2020 Allergies, Adverse Reactions, Alerts Substance Reaction Codes Entered Date Inactivated Date Status * NO KNOWN FOOD ALLERGIES Unknown 07/13/2023 No Inactive Date Active LISINOPRIL RxNorm: 95500 02/12/2020 No Inactive Da te Active Metformin [...] E78. 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 Other [facility] (current[facility] dr ug therapy ICD-10: Z79.899 ICD-9: [...] 09/07/2023 Resolved Coronary artery disease invo lving [place] coronary artery of [place] heart, angina presence unspecified ICD-10: I25.10 ICD-9: [...] Inactive nystatin 100,000 unit/gram topical powder RxNorm: 548504 Apply 1 Application Topical BID as needed [...] (Concentrated) Insulin 500 unit/mL subcutaneous soln RxNorm: 769927 Inject 100 Unit(s) Subcutaneous TID 02/17/20 24 025 Active Tusharagldestin MendenhallPen U-100 Insulin 100 unit/mL (3 mL) subcutaneous RxNorm: 3669583 Inject 30 Unit(s) Subcutaneous BID 02/10/20 24 024 Active Please dispense one month supply. Humulin R U-500 (Concentrated) Insulin 500 unit/mL subcutaneous soln RxNorm: 006277 Inject 100 Unit(s) Subcutaneous TID 02/10/20 24 024 Inactive pregabalin 100 mg capsule RxNorm: 889389 Take 1 Capsule(s) Oral QAM every morning 02/07/20 24 024 Active isosorbide mononitrate ER 60 mg tablet,extended release 24 hr RxNorm: 791897 Take 1 Tablet(s) Oral QD 02/01/20 24 025 Active aripiprazole 15 mg tablet RxNorm: 945170 Take 1/2 Tablet(s) Oral QD 02/01/20 24 025 Active torsemide 20 mg tablet RxNorm: 554973 1 TAB ORALLY DAILY (DX: EDEMA) 01/27/20 No Stop Date Active potassium chloride ER 20 mEq tablet,extended release(part/cryst) RxNorm: 0371093 2 TABS (40MEQ) ORALLY TWICE DAILY (DX: HYPOKALEMIA) 01/27/20 No Stop Date Active cephalexin 500 mg capsule RxNorm: 486374 Take 1 Capsule(s) Oral QID 12/17/19 24 024 Inactive cephalexin 500 mg capsule RxNorm: 232343 Take 1 Capsule(s) Oral QID 12/17/19 24 024 Inactive acetaminophen 500 mg tablet RxNorm: 477935 (MAX APAP:4GM/24HR) Take 1 Tablet(s) Oral TID as needed for pain 12/10/19 24 024 Active torsemide 20 mg tablet RxNorm: 258206 Take 1 Tablet(s) Oral QD 10/26/19 24 024 Inactive potassium chloride ER 20 mEq tablet,extended release RxNorm: 823470 Take 2 Tablet(s) Oral BID 10/26/19 24 Active torsemide 20 mg tablet RxNorm: 432965 Take 1 Tablet(s) Oral QD 10/26/19 24 024 Inactive potassium chloride ER 20 mEq tablet,extended release RxNorm: 047095 Take 2 Tablet(s) Oral BID 10/26/19 24 Inactive Artificial Tears (PF) 0.1 %-0.3 % drops in a dropperette RxNorm: 269165 Apply 1-2 Drop(s) Both eyes BID as needed 09/28/19 24 Active erythromycin 5 mg/gram (0.5 %) eye ointment RxNorm: 858877 Apply 1 Application Both eyes QHS every night at bedtime Instill ~1 cm ribbon into affected eye 09/28/19 24 024 Inactive Artificial Tears (PF) 0.1 %-0.3 % drops in a dropperette RxNorm: 642868 Apply 1-2 Drop(s) Both eyes BID as needed 09/28/19 24 024 Inactive erythromycin 5 mg/gram (0.5 %) eye ointment RxNorm: 344183 Apply 1 Application Both eyes QHS every night at bedtime Instill ~1 cm ribbon into affected eye 09/28/19 24 024 Inactive acetaminophen 500 mg tablet RxNorm: 453899 (MAX APAP:4GM/24HR) Take 1 Tablet(s) Oral TID as needed for pain 09/24/19 24 024 Inactive carvedilol 25 mg tablet RxNorm: 676025 Take 1 Tablet(s) Oral QD 09/08/19 24 No Stop Date Active pregabalin 100 mg capsule RxNorm: 358705 Take 1 Capsule(s) Oral QAM every morning 09/07/19 24 024 Inactive rosuvastatin 40 mg tablet RxNorm: 079856 Take 1 Tablet(s) Oral QPM every evening 07/13/19 24 No Stop Date Active ezetimibe 10 mg tablet RxNorm: 364226 Take 1 Tablet(s) Oral QD 07/13/19 24 No Stop Date Active bisacodyl 10 mg rectal suppository RxNorm: 780589 Insert 1 Suppository Rectal QD as needed 07/13/19 24 No Stop Date Active polyethylene glycol 3350 17 gram/dose oral powder RxNorm: 902478 Take 17 Gram(s) Oral BID as needed mix in 4-8ox water 07/13/19 24 No Stop Date Active ketoconazole 2 % shampoo RxNorm: 992406 Apply 1 Application Topical UD as directed 07/13/19 24 No Stop Date Active Ozempic 1 mg/dose (4 mg/3 mL) subcutaneous pen injector RxNorm: 0807642 Inject 1 Milligram(s) Subcutaneous QW once a week 07/13/19 24 No Stop Date Active Guaifenesin AC 10 mg-100 mg/5 mL oral liquid RxNorm: 675241 Take 10 Milliliter(s) Oral Q4H every four hours as needed 07/13/19 24 No Stop Date Active ammonium lactate 12 % topical cream RxNorm: 105858 Apply 1 Application Topical BID 07/13/19 24 No Stop Date Active hydrocortisone 2.5 % topical cream RxNorm: 861496 Apply 1 Application Topical BID as needed 07/13/19 24 No Stop Date Active rosuvastatin 20 mg sprinkle capsule RxNorm: 4780583 Take 1 Capsule(s) Oral QD 07/13/19 24 No Stop Date Active Vascepa 1 gram capsule RxNorm: 9159847 Take 2 Capsule(s) Oral BID 07/13/19 24 No Stop Date Active venlafaxine ER 75 mg capsule,extended release 24 hr RxNorm: 457437 Take 3 Capsule(s) Oral QD 07/13/19 24 No Stop Date Active aripiprazole 15 mg tablet RxNorm: 472017 Take 1/2 Tablet(s) Oral QD 07/13/19 24 024 Inactive isosorbide mononitrate ER 60 mg tablet,extended release 24 hr RxNorm: 888121 Take 1 Tablet(s) Oral QD 07/13/19 24 024 Inactive Basaglar KwikPen U-100 Insulin 100 unit/mL (3 mL) subcutaneous RxNorm: 3301919 Inject 30U SubQ twice daily 07/07/19 24 024 Inactive Please dispense one month supply. Basaglar KwikPen U-100 Insulin 100 unit/mL (3 mL) subcutaneous RxNorm: 1247679 Inject 30U SubQ twice daily 07/07/19 24 024 Inactive Please dispense one month supply. pregabalin 150 mg capsule RxNorm: 412952 Take 1 Capsule(s) Oral QHS every night at bedtime 07/05/19 24 024 Inactive pregabalin 150 mg capsule RxNorm: 188614 Take 1 Capsule(s) Oral QHS every night at bedtime 07/05/19 24 024 Inactive polyethylene glycol 3350 17 gram/dose oral powder RxNorm: 332978 Take 1 Packet Oral QD as needed (1 packet = 17g) mix with 4-8oz of liquid 06/15/19 24 024 Inactive bisacodyl 10 mg rectal suppository RxNorm: 316839 Insert one suppository per rectum once daily as needed for constipation 06/15/19 24 024 Inactive bisacodyl 10 mg rectal suppository RxNorm: 096747 Insert one suppository per rectum once daily as needed for constipation 06/15/19 24 024 Inactive pregabalin 100 mg capsule RxNorm: 221243 Take 1 Capsule(s) Oral QAM every morning 04/27/20 23 024 Inactive Levemir FlexPen 100 unit/mL (3 mL) solution subcutaneous insulin pen RxNorm: 133504 Inject 30 Unit(s) Subcutaneous BID 04/27/20 23 024 Inactive rosuvastatin 40 mg tablet RxNorm: 709084 Take 1 Tablet(s) Oral QPM every evening 04/16/20 024 Inactive D/C rosuvastatin 20mg venlafaxine ER 75 mg capsule,extended release 24 hr RxNorm: 216271 Take 3 Capsule(s) Oral QD 04/14/20 23 023 Inactive pregabalin 100 mg capsule RxNorm: 498847 Take 1 Capsule(s) Oral QAM every morning [...] strip clotrimazole 1 % topical cream RxNorm: 276937 Take apply topically to abdominal folds twice daily for 14 days 03/12/20 024 Inactive Ozempic 1 mg/dose (4 mg/3 mL) subcutaneous pen injector RxNorm: 3122123 Inject 1 Milligram(s) Subcutaneous QW once a week 03/11/20 023 Inactive rosuvastatin 20 mg tablet RxNorm: 134461 Take 1 Tablet(s) Oral QD 02/26/20 23 023 Inactive d/c pravastatin 80mg Ozempic 1 mg/dose (4 mg/3 mL) subcutaneous pen injector RxNorm: 1548889 Inject 1 Milligram(s) Subcutaneous QW once a week 02/20/20 23 023 Inactive pregabalin 150 mg capsule RxNorm: 217612 Take 1 Capsule(s) Oral HS at bed time 02/19/20 23 023 Inactive pregabalin 100 mg capsule RxNorm: 428655 Take 1 Capsule(s) Oral QAM every morning 02/18/20 023 Inactive venlafaxine ER 75 mg capsule,extended release 24 hr RxNorm: 478957 Take 3 Capsule(s) Oral QD 02/04/20 23 023 Inactive FreeStyle [place] 2 Sensor kit RxNorm: use as directed 02/04/20 23 023 Inactive FreeStyle [place] 2 Sensor kit RxNorm: use as directed 02/04/20 23 024 Inactive fluconazole 150 mg tablet RxNorm: 783938 Take 1 Tablet(s) Oral on day 3 and on day 6 02/03/20 23 024 Inactive chlorthalidone 25 mg tablet RxNorm: 227499 Take 1 Tablet(s) Oral QAM every morning 02/03/20 23 No Stop Date Active venlafaxine ER 150 mg capsule,extended release 24 hr RxNorm: 459254 Take 1 Capsule(s) Oral QD 02/03/20 23 023 Inactive acetaminophen 500 mg tablet RxNorm: 622714 1 TABLET ORALLY 3 TIMES DAILY (MAX APAP:4GM/24HR) 12/15/19 23 023 Inactive clotrimazole 1 % topical cream RxNorm: 697554 apply 1g topically to top of feet and in between toes BID 12/09/19 23 023 Inactive potassium chloride ER 20 mEq tablet,extended release RxNorm: 728358 Take 1 Tablet(s) Oral BID 12/09/19 23 024 Inactive d/c 20mEq once daily (sent from hospital) nystatin 100,000 unit/gram topical powder RxNorm: 882808 APPLY TO AFFECTED AREAS TOPICALLY 2 TIMES DAILY 11/21/19 23 023 Inactive Nystop 100,000 unit/gram topical powder RxNorm: 894338 Apply to abd folds, under breasts and L side of groin Topical BID x 14 days, then BID PRN 11/20/19 023 Inactive dx: yeast dermatitis [place] Ultra Strength 4 %-30 %-10 % topical cream RxNorm: 831797 Apply 1 Gram(s) Topical QID PRN to feet and legs for neuropathic pain 11/11/19 23 024 Inactive clotrimazole 1 % topical cream RxNorm: 090718 Apply 1/2 Gram(s) Topical BID Apply to affected areas of groin, periarea, and abdominal topically 2 times daily 11/10/19 23 023 Inactive hydrocortisone 2.5 % topical cream RxNorm: 046249 Apply 1/2 Gram(s) Topical BID as needed 11/10/19 024 Inactive Levemir FlexPen 100 unit/mL (3 mL) solution subcutaneous insulin pen RxNorm: 907112 Inject 30 Unit(s) Subcutaneous BID 10/07/19 23 023 Inactive Humulin R U-500 (Concentrated) Insulin 500 unit/mL subcutaneous soln RxNorm: 738714 Inject 100 Unit(s) Subcutaneous TID 05/23 024 Inactive Ozempic 0.25 mg or 0.5 mg (2 mg/3 mL) subcutaneous pen injector RxNorm: 4743156 Inject 1/2 Milligram(s) Subcutaneous QW once a week 10/07/19 024 Inactive aripiprazole 15 mg tablet RxNorm: 829802 1/2 TAB (7.5MG) ORALLY DAILY (DX:MAJOR DEPRESSIVE DISORDER) 09/23/19 023 Inactive Accu-Chek Guide test strips RxNorm: Use 1 Test Strip QID 09/15/19 023 Inactive ok to substitute with any covered alternative test strip Lancets,Thin 28 gauge RxNorm: Use 1 as directed QID 09/15/19 023 Inactive torsemide 20 mg tablet RxNorm: 784769 Take 1 Tablet(s) Oral BID 09/09/19 024 Inactive d/c once daily dosing carvedilol 25 mg tablet RxNorm: 654669 Take 1 Tablet(s) Oral QD 08/25/19 23 024 Inactive pregabalin 150 mg capsule RxNorm: 636574 1 Capsule(s) Oral HS at bed time 08/18/19 023 Inactive pregabalin 100 mg capsule RxNorm: 837271 1 Capsule(s) Oral QAM every morning 08/18/19 023 Inactive carvedilol 25 mg tablet RxNorm: 484989 1 Tablet(s) Oral QD 07/28/19 023 Inactive lisinopril 20 mg tablet RxNorm: 680695 Give 1 Tablet(s) Oral QD 07/28/19 23 023 Inactive Lyrica 150 mg capsule RxNorm: 530706 Take 1 Capsule(s) Oral QHS every night at bedtime 07/19/19 023 Inactive d/c 100mg dose Diflucan 150 mg tablet RxNorm: 190550 Take 1 Tablet(s) Oral QD repeat on day 3 and 6 07/19/19 23 023 Inactive pregabalin 100 mg capsule RxNorm: 518172 Take 1 Capsule(s) Oral QAM every morning 07/19/19 23 023 Inactive gatifloxacin 0.5 % eye drops RxNorm: 745951 Instill 1 Drop(s) as directed TID Instill 1 drop in to affected eye(s) starting 1 day prior to surgery and continue until gone (do not exceed 4 weeks). 07/13/19 23 023 Inactive carvedilol 25 mg tablet RxNorm: 302257 2 Tablet(s) Oral BID 07/13/19 023 Inactive Humulin R Regular U-100 Insulin 100 unit/mL injection solution RxNorm: 002112 85 Unit(s) Injection TID 07/13/19 23 023 Inactive ketorolac 0.5 % eye drops RxNorm: 718285 Instill 1 Drop(s) as directed QID Instill 1 drop into affected eye(s) 4 times daily starting 1 day prior to surgery and continue until gone (do not exceed 4 weeks). 07/13/19 023 Inactive Diflucan 150 mg tablet RxNorm: 518707 Take 1 Tablet(s) Oral QD repeat on day 3 and 6 06/30/19 23 023 Inactive Accu-Chek Guide test strips RxNorm: Use 1 Test Strip QID Use 1 test strip to monitor blood glucose 4 times daily and as needed. Dx:E11.42. 06/23/19 23 023 Inactive ok to substitute with any covered alternative test strip dextromethorphan-gu aifenesin 10 mg-100 mg/5 mL oral liquid RxNorm: 842672 Take 10 Milliliter(s) Oral every 4 hours as needed for cough 06/19/19 23 023 Inactive dextromethorphan-gu aifenesin 10 mg-100 mg/5 mL oral liquid RxNorm: 187986 Take 10 Milliliter(s) Oral every 4 hours as needed for cough 06/19/19 23 023 Inactive Lyrica 150 mg capsule RxNorm: 096183 Take 1 Capsule(s) Oral QHS every night at bedtime 06/18/19 23 023 Inactive d/c 100mg dose aripiprazole 15 mg tablet RxNorm: 072739 1/2 TAB (7.5MG) ORALLY DAILY (DX:MAJOR DEPRESSIVE DISORDER) 06/05/19 023 Inactive pregabalin 100 mg capsule RxNorm: 412482 1 Capsule(s) Oral QAM every morning 06/02/19 023 Inactive Banophen 50 mg capsule RxNorm: 2276373 Take 1 Capsule(s) Oral Q6H every 6 hours as needed 05/19/19 No Stop Date Active Novolog Flexpen U-100 Insulin aspart 100 unit/mL (3 mL) subcutaneous RxNorm: 2239968 Inject 10 Unit(s) Subcutaneous QHS every night at bedtime with nighttime snack 04/08/20 022 Inactive Novolog Flexpen U-100 Insulin aspart 100 unit/mL (3 mL) subcutaneous RxNorm: 7723842 Inject 42 Unit(s) Subcutaneous TID in addition to sliding scale 04/08/20 022 Inactive d/c 36u albuterol sulfate HFA 90 mcg/actuation aerosol inhaler RxNorm: 4900150 Take 2 Puff(s) Inhalation Q4H every four hours as needed as needed for SOB, cough, or wheezing 04/07/20 030 Active Banophen 50 mg capsule RxNorm: 4769881 Take 1 Capsule(s) Oral Q6H every 6 hours as needed 04/06/20 023 Inactive diphenhydramine 50 mg tablet RxNorm: 2731127 Take 1 Tablet(s) Oral Q6H every 6 hours as needed 04/06/20 22 022 Inactive diphenhydramine 50 mg tablet RxNorm: 1297401 1 Tablet(s) Oral Q6H every 6 hours as needed 04/06/20 022 Inactive Abilify 15 mg tablet RxNorm: 377627 1/2 Tablet(s) Oral QD 03/10/20 023 Inactive Shingrix (PF) 50 mcg/0.5 mL intramuscular suspension, kit RxNorm: 8863980 Administer 1/2 Milliliter(s) Intramuscular QD one time shingrix step 2 ( step 1 given 11/04/21) WITH needle - Nursing please administer upon arrival and once administered post a bridge message with date of administration, casino floor walker, expiration date, and lot# so we can update [facility] 02/18/20 22 022 Inactive dispense with needle Shingrix (PF) 50 mcg/0.5 mL intramuscular suspension, kit RxNorm: 7819332 Administer 1/2 Milliliter(s) Intramuscular QD one time shingrix step 2 ( step 1 given 11/04/21) WITH needle - Nursing please administer upon arrival and once administered post a bridge message with date of administration, casino floor walker, expiration date, and lot# so we can update [facility] 02/18/20 22 022 Inactive dispense with needle polyethylene glycol 3350 17 gram/dose oral powder RxNorm: 700140 Take 17=1 capful Gram(s) Oral QD mix with 4-8oz of liquid 01/08/20 22 023 Inactive take this in addition to BID prn order Lyrica 100 mg capsule RxNorm: 018858 Take 1 Capsule(s) Oral QAM every morning 01/08/20 22 022 Inactive d/c 50mg dose acetaminophen 500 mg tablet RxNorm: 001347 Take 1 Tablet(s) Oral TID 01/08/20 22 022 Inactive d/c PRN order Lyrica 150 mg capsule RxNorm: 716746 Take 1 Capsule(s) Oral QHS every night at bedtime 01/08/20 22 023 Inactive d/c 100mg dose Abilify 5 mg tablet RxNorm: 296696 Take 1 Tablet(s) Oral QD take 1 tab po QD #30 refill 5 dx: MDD 12/12/19 22 022 Inactive Abilify 5 mg tablet RxNorm: 730509 Take 1 Tablet(s) Oral QD take 1 tab po QD #30 refill 5 dx: MDD 12/12/19 22 022 Inactive Novolog Flexpen U-100 Insulin aspart 100 unit/mL (3 mL) subcutaneous RxNorm: 5880169 Inject 42 Unit(s) Subcutaneous TID in addition to sliding scale 12/10/19 22 022 Inactive d/c 36u chlorthalidone 25 mg tablet RxNorm: 756999 Take 1 Tablet(s) Oral QAM every morning 12/10/19 22 023 Inactive pregabalin 50 mg capsule RxNorm: 361475 Take 1 Capsule(s) Oral QAM every morning 11/12/19 22 022 Inactive tetanus-diphtheria toxoids-Td 2 Lf unit-2 Lf unit/0.5 mL IM suspension RxNorm: 139 Take 0.5 Miscellaneous Intramuscular 11/12/19 22 022 Inactive need tdap - nursing to administer upon arrival pregabalin 50 mg capsule RxNorm: 518852 Take 1 Capsule(s) Oral QAM every morning 10/16/19 22 022 Inactive pregabalin 50 mg capsule RxNorm: 675066 Take 1 Capsule(s) Oral QAM every morning 10/16/19 22 022 Inactive pregabalin 50 mg capsule RxNorm: 190933 1 Capsule(s) Oral QAM every morning 10/15/19 22 022 Inactive Shingrix (PF) 50 mcg/0.5 mL intramuscular suspension, kit RxNorm: 6505894 Administer 1/2 Milliliter(s) Intramuscular one time Nursing please administer upon arrival and once administered post a bridge message with date of administration, casino floor walker, expiration date, and lot# so we can update [facility]. 10/09/19 22 022 Inactive shingrix step 1 Shingrix (PF) 50 mcg/0.5 mL intramuscular suspension, kit RxNorm: 8929571 Administer 1/2 Milliliter(s) Intramuscular one time Nursing please administer upon arrival and once administered post a bridge message with date of administration, casino floor walker, expiration date, and lot# so we can update [facility]. 10/09/19 22 022 Inactive shingrix step 1 cholecalciferol (vitamin D3) 1,250 mcg (50,000 unit) capsule RxNorm: 205392 Take 1 Capsule(s) Oral QW once a [...] aspart 100 unit/mL (3 mL) subcutaneous RxNorm: 1398860 Inject 10 Unit(s) Subcutaneous QHS every night at bedtime with nighttime snack 10/08/19 22 Inactive Shingrix (PF) 50 mcg/0.5 mL intramuscular suspension, kit RxNorm: 7355728 ADMINISTER 2-DOSE SERIES PER CDC GUIDELINES 10/08/19 22 Active Shingrix (PF) 50 mcg/0.5 mL intramuscular suspension, kit RxNorm: 0668498 ADMINISTER 2-DOSE SERIES PER CDC GUIDELINES 10/08/19 22 Inactive Novolog Flexpen U-100 Insulin aspart 100 unit/mL (3 mL) subcutaneous RxNorm: 3145298 Inject 36 Unit(s) Subcutaneous TID in addition to sliding scale 10/08/19 22 Inactive Novofine Autocover 30 gauge x 1/3 needle RxNorm: Use 1 Miscellaneous UD as directed Use 1 needle as directed to administer insulin 5 times a day Dx:E11.42. 10/03/19 Inactive ok to substitute with any covered alternative pen needle benzoyl peroxide 10 % topical cleanser RxNorm: 493676 Apply 1 Application Topical QD apply to face, wash rinse and dry once daily (may change to QOD if drying) 08/19/19 22 022 Inactive (%covered by insurance) #60ml refill 11 dx: acne benzoyl peroxide 10 % topical cleanser RxNorm: 471853 Apply 1 Application Topical QD apply to face, wash rinse and dry once daily (may change to QOD if drying) 08/19/19 22 022 Inactive (%covered by insurance) #60ml refill 11 dx: acne benzoyl peroxide 10 % topical cleanser RxNorm: 492907 Apply 1 Application Topical QD apply to face, wash rinse and dry once daily (may change to QOD if drying) 08/19/19 22 022 Inactive (%covered by insurance) #60ml refill 11 dx: acne Lyrica 50 mg capsule RxNorm: 106360 Take 1 Capsule(s) Oral QAM every morning Take 1 capsule by mouth once daily 08/19/19 22 022 Inactive benzoyl peroxide 10 % topical cleanser RxNorm: 535897 Apply 1 Application Topical QD apply to face, wash rinse and dry once daily (may change to QOD if drying) 08/19/19 22 022 Inactive (%covered by insurance) #60ml refill 11 dx: acne Lyrica 100 mg capsule RxNorm: 438095 Take 1 Capsule(s) Oral QHS every night at bedtime Take 1 capsule by mouth once daily at bedtime 08/19/19 22 022 Inactive Lyrica 100 mg capsule RxNorm: 276200 Take 1 Capsule(s) Oral QHS every night at bedtime Take 1 capsule by mouth once daily at bedtime 08/16/19 22 022 Inactive Lyrica 50 mg capsule RxNorm: 355055 Take 1 Capsule(s) Oral QAM every morning Take 1 capsule by mouth once daily 08/16/19 22 Inactive Levemir FlexTouch U-100 Insulin 100 unit/mL (3 mL) subcutaneous pen RxNorm: 420581 Inject 86 Unit(s) Subcutaneous BID 08/05/19 22 022 Inactive d/c 83units BID Lyrica 100 mg capsule RxNorm: 084691 Take 1 Capsule(s) Oral QHS every night at bedtime Take 1 capsule by mouth once daily at bedtime 07/14/19 022 Inactive Lyrica 50 mg capsule RxNorm: 693753 Take 1 Capsule(s) Oral QAM every morning Take 1 capsule by mouth once daily 07/14/19 22 022 Inactive Levemir FlexTouch U-100 Insulin 100 unit/mL (3 mL) subcutaneous pen RxNorm: 768308 Inject 83 Unit(s) Subcutaneous BID 07/08/19 22 [...] test strip hydralazine 50 mg tablet RxNorm: 844320 Take 1 Tablet(s) Oral QID 05/05/20 21 022 Inactive venlafaxine ER 225 mg tablet,extended release 24 hr RxNorm: 317467 Take 1 Tablet(s) Oral QD 05/05/20 21 021 Inactive venlafaxine ER 225 mg tablet,extended release 24 hr RxNorm: 379905 Take 1 Tablet(s) Oral QD 05/05/20 21 022 Inactive isosorbide mononitrate ER 30 mg tablet,extended release 24 hr RxNorm: 750118 Take 1 Tablet(s) Oral QD 05/05/20 024 Inactive hydralazine 50 mg tablet RxNorm: 468097 Take 1 Tablet(s) Oral QID 05/05/20 21 021 Inactive aspirin 81 mg tablet,delayed release RxNorm: 196166 Take 1 Tablet(s) Oral QD 03/31/20 022 Inactive Vitamin D2 1,250 mcg (50,000 unit) capsule RxNorm: 6519766 Take 1 Capsule(s) Oral QW once a week x 12 weeks 03/31/20 022 Inactive Vitamin D2 1,250 mcg (50,000 unit) capsule RxNorm: 3732100 Take 1 Capsule(s) Oral QW once a week 03/31/20 021 Inactive Zetia 10 mg tablet RxNorm: 584557 Take 1 Tablet(s) Oral QD 03/31/20 024 Inactive Zetia 10 mg tablet RxNorm: 542338 Take 1 Tablet(s) Oral QD 03/31/20 021 Inactive hydralazine 25 mg tablet RxNorm: 791747 Take 1 Tablet(s) Oral QID 03/31/20 21 021 Inactive hydralazine 25 mg tablet RxNorm: 940256 Take 1 Tablet(s) Oral QID 03/31/20 021 Inactive hydralazine 10 mg tablet RxNorm: 424674 Take 1 Tablet(s) Oral QID 03/03/20 021 Inactive cephalexin 500 mg tablet RxNorm: 402717 Take 1 Tablet(s) Oral QID 02/27/20 21 021 Inactive cephalexin 500 mg tablet RxNorm: 313641 Take 1 Tablet(s) Oral QID 02/27/20 021 Inactive lisinopril 40 mg tablet RxNorm: 311149 Take 1 Tablet(s) Oral QD 02/11/20 21 023 Inactive Eliquis 5 mg tablet RxNorm: 3882731 Take 1 Tablet(s) Oral BID 01/05/20 21 022 Inactive Eliquis 5 mg tablet RxNorm: 0186581 Take 2 Tablet(s) Oral QD 01/01/20 21 021 Inactive Lyrica 50 mg capsule RxNorm: 727203 Take 1 Capsule(s) Oral QAM every morning 12/24/19 21 021 Inactive Lyrica 100 mg capsule RxNorm: 352811 Take 1 Capsule(s) Oral QHS every night at bedtime 12/24/19 21 021 Inactive clotrimazole 1 % topical cream RxNorm: 780203 Apply to right foot and toes Topical BID 12/04/19 21 023 Inactive metoprolol succinate ER 200 mg tablet,extended release 24 hr RxNorm: 468381 Take 1 Tablet(s) Oral QD 12/04/19 21 023 Inactive ciprofloxacin 500 mg tablet RxNorm: 979739 Take 1 Tablet(s) Oral QD 11/30/19 21 021 Inactive DX ofloxacin otic drops Accu-Chek Guide test strips RxNorm: USE 1 TO CHECK GLUCOSE 4 TIMES DAILY AND NEEDED 11/15/19 21 023 Inactive Blood Glucose Test strips RxNorm: Use 1 Test Strip QID at PRN 11/05/19 21 023 Inactive E11.42 lisinopril 30 mg tablet RxNorm: 641887 Take 1 Tablet(s) Oral QD 10/30/19 021 Inactive lisinopril 20 mg tablet RxNorm: 635463 Take 1 Tablet(s) Oral QD 10/23/19 021 Inactive lisinopril 20 mg tablet RxNorm: 002671 Take 1 Tablet(s) Oral QD 10/23/19 21 021 Inactive lisinopril 10 mg tablet RxNorm: 502807 Take 1 Tablet(s) Oral QD 10/02/19 21 021 Inactive icosapent ethyl 1 gram capsule RxNorm: 9224867 Take 2 Capsule(s) (2 gm) Oral BID with meals 09/12/19 21 024 Inactive Okay to dispense one 2gm tab if you have that available. icosapent ethyl 1 gram capsule RxNorm: 5196633 Take 2 Capsule(s) Oral BID 09/12/19 021 Inactive Okay to dispense one 2gm tab if you have that available. amlodipine 10 mg tablet RxNorm: 862810 Take 1 Tablet(s) Oral QD 09/04/19 022 Inactive aspirin 81 mg tablet,delayed release RxNorm: 513827 Take 1 Tablet(s) Oral QD 09/04/19 Inactive Levemir FlexTouch U-100 Insulin 100 unit/mL (3 mL) subcutaneous pen RxNorm: 118149 Inject 150 Unit(s) Subcutaneous BID 09/04/19 21 022 Inactive venlafaxine ER 150 mg tablet,extended release 24 hr RxNorm: 213222 Take 1 Tablet(s) Oral QD 09/04/19 021 Inactive clotrimazole-betame thasone 1 %-0.05 % topical cream RxNorm: 151572 Apply to rash on red area on left abdomen/chest Topical BID 08/10/19 Inactive amlodipine 5 mg tablet RxNorm: 731330 Take 1 Tablet(s) Oral QD 07/31/19 021 Inactive cephalexin 500 mg tablet RxNorm: 719240 Take 1 Tablet(s) Oral BID BID - Twice Daily 07/31/19 21 021 Inactive Start 08/01/20 pantoprazole 40 mg tablet,delayed release RxNorm: 254555 Take 1 Tablet(s) Oral QAM every morning 07/08/19 022 Inactive senna 8.6 mg tablet RxNorm: 380623 Take 1 Tablet(s) Oral QD 07/08/19 022 Inactive carbamazepine 200 mg tablet RxNorm: 679017 Take 1 Tablet(s) Oral BID 07/08/19 022 Inactive clopidogrel 75 mg tablet RxNorm: 496964 Take 1 Tablet(s) Oral QD 07/08/19 21 021 Inactive Blood Glucose Test strips RxNorm: Use 1 Test Strip QID at PRN 07/08/19 21 021 Inactive E11.42 Novolog Flexpen U-100 Insulin aspart 100 unit/mL (3 mL) subcutaneous RxNorm: 9135820 Administer per sliding scale Milliliter(s) Subcutaneous TID 151-200: 10 u; 201-250: 20 u; 251-300: 30 u; 301-350: 40 u; 351-400: 50 u. 07/08/19 21 022 Inactive lisinopril 5 mg tablet RxNorm: 290004 Take 1 Tablet(s) Oral QD 07/08/19 021 Inactive Novolog Flexpen U-100 Insulin aspart 100 unit/mL (3 mL) subcutaneous RxNorm: 4543213 Inject 85 Unit(s) Subcutaneous TID 07/08/19 022 Inactive pravastatin 80 mg tablet RxNorm: 709229 Take 1 Tablet(s) Oral QHS every night at bedtime 07/08/19 023 Inactive clotrimazole 1 % topical cream RxNorm: 627981 Apply to bilateral groin areas Topical BID 07/08/19 022 Inactive metoprolol succinate ER 200 mg tablet,extended release 24 hr RxNorm: 738237 Take 1 Tablet(s) Oral QD 07/08/19 021 Inactive Vitamin D3 25 mcg (1,000 unit) tablet RxNorm: 227025 Take 1 Tablet(s) Oral QD 07/08/19 021 Inactive isosorbide dinitrate 30 mg tablet RxNorm: 851459 Take 1 Tablet(s) Oral QD 07/08/19 021 Inactive Levemir FlexTouch U-100 Insulin 100 unit/mL (3 mL) subcutaneous pen RxNorm: 435730 Inject 140 Unit(s) Subcutaneous BID 07/08/19 021 Inactive torsemide 20 mg tablet RxNorm: 013821 Take 1 Tablet(s) Oral QD 07/08/19 21 023 Inactive venlafaxine 75 mg tablet RxNorm: 984223 Take 1 Tablet(s) Oral QD 07/08/19 21 021 Inactive acetaminophen 500 mg tablet RxNorm: 821733 Take 1 Tablet(s) Oral TID as needed for headache 06/18/19 21 021 Inactive acetaminophen 500 mg tablet RxNorm: 914187 Take 1 Tablet(s) Oral TID as needed for headache 06/18/19 21 021 Inactive Lyrica 100 mg capsule RxNorm: 664623 Take 1 Capsule(s) Oral QHS every night at bedtime 06/11/19 21 021 Inactive Lyrica 50 mg capsule RxNorm: 252109 Take 1 Capsule(s) Oral QAM every morning 06/10/19 21 021 Inactive hydrocortisone 2.5 % topical cream RxNorm: 093155 Apply to bilateral groin creases Topical BID 05/15/20 20 021 Inactive clotrimazole 1 % topical cream RxNorm: 175520 Apply to bilateral groin areas Topical BID 05/15/20 20 021 Inactive Lyrica 50 mg capsule RxNorm: 991218 Take 1 Capsule(s) Oral QAM every morning 05/14/20 20 020 Inactive Lyrica 100 mg capsule RxNorm: 972698 Take 1 Capsule(s) Oral QHS every night [...] Inactive Nystop 100,000 unit/gram topical powder RxNorm: 116183 Apply to abd folds, under breasts and L side of groin Topical BID x 14 days, then BID PRN 04/08/20 20 020 Inactive dx: yeast dermatitis Lyrica 100 mg capsule RxNorm: 163130 Take 1 Capsule(s) Oral QHS every night at bedtime 03/13/20 20 Inactive Lyrica 50 mg capsule RxNorm: 287553 Take 1 Capsule(s) Oral QAM every morning 03/13/20 20 Inactive ketoconazole 2 % shampoo RxNorm: 114782 Apply Topical two times a week with showers 03/11/20 20 Inactive cholecalciferol (vitamin D3) 50 mcg (2,000 unit) tablet RxNorm: 881000 Take 1 Tablet(s) Oral QD 03/11/20 20 Inactive Zetia 10 mg tablet RxNorm: 038740 Take 1 Tablet(s) Oral QD 03/07/20 20 021 Inactive Zetia 10 mg tablet RxNorm: 996703 Take 1 Tablet(s) Oral QD 03/07/20 20 Inactive Lyrica 50 mg capsule RxNorm: 614812 Take 1 Capsule(s) Oral QAM every morning 02/15/20 20 Inactive Lyrica 100 mg capsule RxNorm: 744422 Take 1 Capsule(s) Oral QHS every night at bedtime 02/15/20 20 Inactive Lyrica 100 mg capsule RxNorm: 502032 Take 1 Capsule(s) Oral QHS every night at bedtime 02/15/20 20 Inactive Lyrica 50 mg capsule RxNorm: 474145 Take 1 Capsule(s) Oral QAM every morning 02/15/20 20 Inactive metoprolol succinate ER 200 mg tablet,extended release 24 hr RxNorm: 551560 Take 1 Tablet(s) Oral QD 08/12/19 23 Active loperamide 2 mg capsule RxNorm: 030964 Take 1 Capsule(s) Oral QID as needed 06/12/19 22 Active hydralazine 50 mg tablet RxNorm: 180657 Take 1 Tablet(s) Oral QID 08/12/19 23 Active venlafaxine ER 75 mg capsule,extended release 24 hr RxNorm: 804820 Take 3 Capsule(s) Oral QD 06/12/19 22 023 Inactive polyethylene glycol 3350 17 gram/dose oral powder RxNorm: 825982 Take 17=1 capful Gram(s) Oral BID as needed mix with 4-8oz of liquid 06/12/19 22 024 Inactive icosapent ethyl 1 gram capsule RxNorm: 5780950 Take 2 Capsule(s) (2 gm) Oral BID with meals 10/07/19 23 023 Inactive Okay to dispense one 2gm tab if you have that available. Levemir FlexTouch U-100 Insulin 100 unit/mL (3 mL) subcutaneous pen RxNorm: 775795 Inject 80 Unit(s) Subcutaneous BID 07/14/19 23 023 Inactive Novolog Flexpen U-100 Insulin aspart 100 unit/mL (3 mL) subcutaneous RxNorm: 8778714 Insert 30 Unit(s) Subcutaneous TID with meals [...] Date Referral: [facility] WPtel: [address] [id number] [place] Referral Records Received 09/21/2022 Referral: [facility] WPtel: [phone] [id number] [place] Referral Completed 05/28/2021 Referral: General Cardiology [...] Sister Jyotsna involved in his care cell# [phone] Guardian: Giulia (tapan met in person 09/01/21), [...] note from 11.08.2023 at [facility] (follow up 6 months)Colon & Rectal Surgery visit scheduled for 03/08/24 with Matilde Pérez PA-C. 02/08/2024
--- OUTSIDE RECORDS SUMMARY | 2024-03-03 19:00 | XMS_ITS | CCD ---
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 Bilingual Teacher Assistant Name Role Phone Arpit MCKINLEY-C, [place] Primary Care Provider Leona vailable Luce [employer] DELIV[employer] SPECIALIST-C, [facility] Chronic Care Management U navailable Summary Purpose DataExchange Insurance Providers Payer name Policy type / Coverage type Covered constitution party ID Effective Begin Date Effective End Date [place] Part B [id number] Unknown Unknown Medicaid [place] Medicare Part B [id number] Unknown Unknown Family history Sister Brittany Suggs Diagnosis Age At Onset No Family Disease Entered N/A Runs in the family Diagnosis Age At Onset No Known Diseases N/A Sister Blanka Mcduffie Diagnosis Age At Onset No Family Disease Entered N/A Social History Social History Element Codes Description Effec tive Dates Tobacco history SNOMED CT: 664534652 Never smoker 01/16 Sexually Active? Unknown No [...] 10/07/2021 Living arrangements Unknown Residential 09/03/[address]: 050604326 No Alcohol Consum ption 09/02/2020 Allergies, Adverse Reactions, Alerts Substance Reaction Codes Entered Date Inactivated Date Status * NO KNOWN FOOD ALLERGIES Unknown 07/13/2023 No Inactive Date Active LISINOPRIL RxNorm: 88783 02/12/2020 No Inactive Da te Active Metformin [...] 09/07/2023 Resolved Coronary artery disease invo lving [place] coronary [...] PRN) to be use with new Accu [place] meter 03/04/20 024 Active ok to substitute with any covered alternative test strip nystatin 100,000 unit/gram topical powder RxNorm: 030288 Apply 1 Application Topical BID as needed abdominal/breast /groin folds 03/02/20 024 Active FreeStyle Chema 2 Sensor kit RxNorm: Use UD as directed 03/02/20 025 Active Lancets,Thin 28 gauge RxNorm: Use 1 as directed QID lancet 03/02/20 025 Active Pen Needle 30 gauge x 5/16 RxNorm: Pen(s) Use 1 needle as directed TID 03/02/20 24 025 Active FreeStyle Chema 2 Sensor kit RxNorm: Use UD as directed 03/02/20 24 024 Inactive Pen Needle 30 gauge x 5/16 RxNorm: Pen(s) Use 1 needle as directed TID 03/02/20 24 024 Inactive Accu-Chek Guide test strips RxNorm: Use 1 Test Strip QID 03/02/20 24 024 Inactive ok to substitute with any covered alternative test strip Humulin R U-500 (Concentrated) Insulin 500 unit/mL subcutaneous soln RxNorm: 243277 Inject 100 Unit(s) Subcutaneous TID 02/17/20 24 025 Active Basaglar KwikPen U-100 Insulin 100 unit/mL (3 mL) subcutaneous RxNorm: 1295273 Inject 30 Unit(s) Subcutaneous BID 02/10/20 24 024 Active Please dispense one month supply. Humulin R U-500 (Concentrated) Insulin 500 unit/mL subcutaneous soln RxNorm: 628011 Inject 100 Unit(s) Subcutaneous TID 02/10/20 24 024 Inactive pregabalin 100 mg capsule RxNorm: 239579 Take 1 Capsule(s) Oral QAM every morning 02/07/20 24 024 Active isosorbide mononitrate ER 60 mg tablet,extended release 24 hr RxNorm: 862903 Take 1 Tablet(s) Oral QD 02/01/20 24 025 Active aripiprazole 15 mg tablet RxNorm: 008703 Take 1/2 Tablet(s) Oral QD 02/01/20 24 025 Active torsemide 20 mg tablet RxNorm: 440556 1 TAB ORALLY DAILY (DX: EDEMA) 01/27/20 No Stop Date Active potassium chloride ER 20 mEq tablet,extended release(part/cryst) RxNorm: 5157248 2 TABS (40MEQ) ORALLY TWICE DAILY (DX: HYPOKALEMIA) 01/27/20 24 No Stop Date Active cephalexin 500 mg capsule RxNorm: 820624 Take 1 Capsule(s) Oral QID 12/17/19 24 08/08/2 024 Inactive cephalexin 500 mg capsule RxNorm: 609555 Take 1 Capsule(s) Oral QID 12/17/19 24 Inactive acetaminophen 500 mg tablet RxNorm: 360327 (MAX APAP:4GM/24HR) Take 1 Tablet(s) Oral TID as needed for pain 12/10/19 24 Active torsemide 20 mg tablet RxNorm: 572130 Take 1 Tablet(s) Oral QD 10/26/19 24 [...] %-0.3 % drops in a dropperette RxNorm: 623732 Apply 1-2 Drop(s) Both eyes BID as needed 09/28/19 24 Active erythromycin 5 mg/gram (0.5 %) eye ointment RxNorm: 427657 Apply 1 Application Both eyes QHS every night at bedtime Instill ~1 cm ribbon into affected eye 09/28/19 24 Inactive Artificial Tears (PF) 0.1 %-0.3 % drops in a dropperette RxNorm: 457646 Apply 1-2 Drop(s) Both eyes BID as needed 09/28/19 24 024 Inactive erythromycin 5 mg/gram (0.5 %) eye ointment RxNorm: 935119 Apply 1 Application Both eyes QHS every night at bedtime Instill ~1 cm ribbon into affected eye 09/28/19 24 Inactive acetaminophen 500 mg tablet RxNorm: 972632 (MAX APAP:4GM/24HR) Take 1 Tablet(s) Oral TID as needed for pain 09/24/19 24 Inactive carvedilol 25 mg tablet RxNorm: 192158 Take 1 Tablet(s) Oral QD 09/08/19 24 No Stop Date Active pregabalin 100 mg capsule RxNorm: 915438 Take 1 Capsule(s) Oral QAM every morning 09/07/19 24 024 Inactive rosuvastatin 40 mg tablet RxNorm: 840814 Take 1 Tablet(s) Oral QPM every evening 07/13/19 24 No Stop Date Active ezetimibe 10 mg tablet RxNorm: 513878 Take 1 Tablet(s) Oral QD 07/13/19 24 No Stop Date Active bisacodyl 10 mg rectal suppository RxNorm: 989319 Insert 1 Suppository Rectal QD as needed 07/13/19 24 No Stop Date Active polyethylene glycol 3350 17 gram/dose oral powder RxNorm: 150995 Take 17 Gram(s) Oral BID as needed mix in 4-8ox water 07/13/19 24 No Stop Date Active ketoconazole 2 % shampoo RxNorm: 999496 Apply 1 Application Topical UD as directed 07/13/19 24 No Stop Date Active Ozempic 1 mg/dose (4 mg/3 mL) subcutaneous pen injector RxNorm: 1982208 Inject 1 Milligram(s) Subcutaneous QW once a week 07/13/19 24 No Stop Date Active Guaifenesin AC 10 mg-100 mg/5 mL oral liquid RxNorm: 443549 Take 10 Milliliter(s) Oral Q4H every four hours as needed 07/13/19 24 No Stop Date Active ammonium lactate 12 % topical cream RxNorm: 872510 Apply 1 Application Topical BID 07/13/19 24 No Stop Date Active hydrocortisone 2.5 % topical cream RxNorm: 802026 Apply 1 Application Topical BID as needed 07/13/19 24 No Stop Date Active rosuvastatin 20 mg sprinkle capsule RxNorm: 8081392 Take 1 Capsule(s) Oral QD 07/13/19 24 No Stop Date Active Vascepa 1 gram capsule RxNorm: 1421273 Take 2 Capsule(s) Oral BID 07/13/19 24 No Stop Date Active venlafaxine ER 75 mg capsule,extended release 24 hr RxNorm: 965604 Take 3 Capsule(s) Oral QD 07/13/19 24 No Stop Date Active aripiprazole 15 mg tablet RxNorm: 553920 Take 1/2 Tablet(s) Oral QD 07/13/19 24 024 Inactive isosorbide mononitrate ER 60 mg tablet,extended release 24 hr RxNorm: 035867 Take 1 Tablet(s) Oral QD 07/13/19 24 024 Inactive Basaglar KwikPen U-100 Insulin 100 unit/mL (3 mL) subcutaneous RxNorm: 5768757 Inject 30U SubQ twice daily 07/07/19 24 024 Inactive Please dispense one month supply. Basaglar KwikPen U-100 Insulin 100 unit/mL (3 mL) subcutaneous RxNorm: 1280056 Inject 30U SubQ twice daily 07/07/19 24 024 Inactive Please dispense one month supply. pregabalin 150 mg capsule RxNorm: 163477 Take 1 Capsule(s) Oral QHS every night at bedtime 07/05/19 24 024 Inactive pregabalin 150 mg capsule RxNorm: 488774 Take 1 Capsule(s) Oral QHS every night at bedtime 07/05/19 24 024 Inactive polyethylene glycol 3350 17 gram/dose oral powder RxNorm: 154910 Take 1 Packet Oral QD as needed (1 packet = 17g) mix with 4-8oz of liquid 06/15/19 24 024 Inactive bisacodyl 10 mg rectal suppository RxNorm: 880992 Insert one suppository per rectum once daily as needed for constipation 06/15/19 24 024 Inactive bisacodyl 10 mg rectal suppository RxNorm: 680793 Insert one suppository per rectum once daily as needed for constipation 06/15/19 24 024 Inactive pregabalin 100 mg capsule RxNorm: 959193 Take 1 Capsule(s) Oral QAM every morning 04/27/20 23 024 Inactive Levemir FlexPen 100 unit/mL (3 mL) solution subcutaneous insulin pen RxNorm: 346484 Inject 30 Unit(s) Subcutaneous BID 04/27/20 23 024 Inactive rosuvastatin 40 mg tablet RxNorm: 133541 Take 1 Tablet(s) Oral QPM every evening 04/16/20 23 024 Inactive D/C rosuvastatin 20mg venlafaxine ER 75 mg capsule,extended release 24 hr RxNorm: 217415 Take 3 Capsule(s) Oral QD 04/14/20 023 Inactive pregabalin 100 mg capsule RxNorm: 006333 Take 1 Capsule(s) Oral QAM every morning [...] strip clotrimazole 1 % topical cream RxNorm: 851201 Take apply topically to abdominal folds twice daily for 14 days 03/12/20 024 Inactive Ozempic 1 mg/dose (4 mg/3 mL) subcutaneous pen injector RxNorm: 0132453 Inject 1 Milligram(s) Subcutaneous QW once a week 03/11/20 23 023 Inactive rosuvastatin 20 mg tablet RxNorm: 493937 Take 1 Tablet(s) Oral QD 02/26/20 23 023 Inactive d/c pravastatin 80mg Ozempic 1 mg/dose (4 mg/3 mL) subcutaneous pen injector RxNorm: 5588151 Inject 1 Milligram(s) Subcutaneous QW once a week 02/20/20 23 023 Inactive pregabalin 150 mg capsule RxNorm: 495606 Take 1 Capsule(s) Oral HS at bed time 02/19/20 23 023 Inactive pregabalin 100 mg capsule RxNorm: 179864 Take 1 Capsule(s) Oral QAM every morning 02/18/20 23 023 Inactive venlafaxine ER 75 mg capsule,extended release 24 hr RxNorm: 898885 Take 3 Capsule(s) Oral QD 02/04/20 23 023 Inactive FreeStyle Chema 2 Sensor kit RxNorm: use as directed 02/04/20 23 023 Inactive FreeStyle Chema 2 Sensor kit RxNorm: use as directed 02/04/20 23 024 Inactive fluconazole 150 mg tablet RxNorm: 19760124 Take 1 Tablet(s) Oral on day 3 and on day 6 02/03/20 23 024 Inactive chlorthalidone 25 mg tablet RxNorm: 19740123 Take 1 Tablet(s) Oral QAM every morning 02/03/20 No Stop Date Active venlafaxine ER 150 mg capsule,extended release 24 hr RxNorm: 410210 Take 1 Capsule(s) Oral QD 02/03/20 23 023 Inactive acetaminophen 500 mg tablet RxNorm: 245219 1 TABLET ORALLY 3 TIMES DAILY (MAX APAP:4GM/24HR) 12/15/19 23 023 Inactive clotrimazole 1 % topical cream RxNorm: 830418 apply 1g topically to top of feet and in between toes BID 12/09/19 23 023 Inactive potassium chloride ER 20 mEq tablet,extended release RxNorm: 704471 Take 1 Tablet(s) Oral BID 12/09/19 23 024 Inactive d/c 20mEq once daily (sent from hospital) nystatin 100,000 unit/gram topical powder RxNorm: 117321 APPLY TO AFFECTED AREAS TOPICALLY 2 TIMES DAILY 11/21/19 23 023 Inactive Nystop 100,000 unit/gram topical powder RxNorm: 232536 Apply to abd folds, under breasts and L side of groin Topical BID x 14 days, then BID PRN 11/20/19 23 023 Inactive dx: yeast dermatitis [place] Ultra Strength 4 %-30 %-10 % topical cream RxNorm: 172566 Apply 1 Gram(s) Topical QID PRN to feet and legs for neuropathic pain 11/11/19 23 024 Inactive clotrimazole 1 % topical cream RxNorm: 952310 Apply 1/2 Gram(s) Topical BID Apply to affected areas of groin, periarea, and abdominal topically 2 times daily 11/10/19 23 023 Inactive hydrocortisone 2.5 % topical cream RxNorm: 513022 Apply 1/2 Gram(s) Topical BID as needed 11/10/19 024 Inactive Levemir FlexPen 100 unit/mL (3 mL) solution subcutaneous insulin pen RxNorm: 171850 Inject 30 Unit(s) Subcutaneous BID 10/07/19 023 Inactive Humulin R U-500 (Concentrated) Insulin 500 unit/mL subcutaneous soln RxNorm: 885327 Inject 100 Unit(s) Subcutaneous TID 10/07/19 024 Inactive Ozempic 0.25 mg or 0.5 mg (2 mg/3 mL) subcutaneous pen injector RxNorm: 7599424 Inject 1/2 Milligram(s) Subcutaneous QW once a week 10/07/19 024 Inactive aripiprazole 15 mg tablet RxNorm: 267985 1/2 TAB (7.5MG) ORALLY DAILY (DX:MAJOR DEPRESSIVE DISORDER) 09/23/19 023 Inactive Accu-Chek Guide test strips RxNorm: Use 1 Test Strip QID 09/15/19 23 023 Inactive ok to substitute with any covered alternative test strip Lancets,Thin 28 gauge RxNorm: Use 1 as directed QID 09/15/19 23 023 Inactive torsemide 20 mg tablet RxNorm: 593463 Take 1 Tablet(s) Oral BID 09/09/19 024 Inactive d/c once daily dosing carvedilol 25 mg tablet RxNorm: 708493 Take 1 Tablet(s) Oral QD 08/25/19 23 024 Inactive pregabalin 150 mg capsule RxNorm: 435064 1 Capsule(s) Oral HS at bed time 08/18/19 023 Inactive pregabalin 100 mg capsule RxNorm: 633273 1 Capsule(s) Oral QAM every morning 08/18/19 23 023 Inactive carvedilol 25 mg tablet RxNorm: 892928 1 Tablet(s) Oral QD 07/28/19 23 023 Inactive lisinopril 20 mg tablet RxNorm: 342281 Give 1 Tablet(s) Oral QD 07/28/19 23 023 Inactive Lyrica 150 mg capsule RxNorm: 690460 Take 1 Capsule(s) Oral QHS every night at bedtime 07/19/19 23 023 Inactive d/c 100mg dose Diflucan 150 mg tablet RxNorm: 247187 Take 1 Tablet(s) Oral QD repeat on day 3 and 6 07/19/19 23 023 Inactive pregabalin 100 mg capsule RxNorm: 058246 Take 1 Capsule(s) Oral QAM every morning 07/19/19 23 023 Inactive gatifloxacin 0.5 % eye drops RxNorm: 649271 Instill 1 Drop(s) as directed TID Instill 1 drop in to affected eye(s) starting 1 day prior to surgery and continue until gone (do not exceed 4 weeks). 07/13/19 23 023 Inactive carvedilol 25 mg tablet RxNorm: 923453 2 Tablet(s) Oral BID 07/13/19 023 Inactive Humulin R Regular U-100 Insulin 100 unit/mL injection solution RxNorm: 496339 85 Unit(s) Injection TID 07/13/19 23 023 Inactive ketorolac 0.5 % eye drops RxNorm: 203651 Instill 1 Drop(s) as directed QID Instill 1 drop into affected eye(s) 4 times daily starting 1 day prior to surgery and continue until gone (do not exceed 4 weeks). 07/13/19 023 Inactive Diflucan 150 mg tablet RxNorm: 638330 Take 1 Tablet(s) Oral QD repeat on day 3 and 6 06/30/19 23 023 Inactive Accu-Chek Guide test strips RxNorm: Use 1 Test Strip QID Use 1 test strip to monitor blood glucose 4 times daily and as needed. Dx:E11.42. 06/23/19 23 023 Inactive ok to substitute with any covered alternative test strip dextromethorphan-gu aifenesin 10 mg-100 mg/5 mL oral liquid RxNorm: 270248 Take 10 Milliliter(s) Oral every 4 hours as needed for cough 06/19/19 023 Inactive dextromethorphan-gu aifenesin 10 mg-100 mg/5 mL oral liquid RxNorm: 442604 Take 10 Milliliter(s) Oral every 4 hours as needed for cough 06/19/19 023 Inactive Lyrica 150 mg capsule RxNorm: 838995 Take 1 Capsule(s) Oral QHS every night at bedtime 06/18/19 023 Inactive d/c 100mg dose aripiprazole 15 mg tablet RxNorm: 822897 /2 TAB (7.5MG) ORALLY DAILY (DX:MAJOR DEPRESSIVE DISORDER) 06/05/19 023 Inactive pregabalin 100 mg capsule RxNorm: 753195 1 Capsule(s) Oral QAM every morning 06/02/19 023 Inactive Banophen 50 mg capsule RxNorm: 0567823 Take 1 Capsule(s) Oral Q6H every 6 hours as needed 05/19/19 23 No Stop Date Active Novolog Flexpen U-100 Insulin aspart 100 unit/mL (3 mL) subcutaneous RxNorm: 0798845 Inject 10 Unit(s) Subcutaneous QHS every night at bedtime with nighttime snack 04/08/20 022 Inactive Novolog Flexpen U-100 Insulin aspart 100 unit/mL (3 mL) subcutaneous RxNorm: 4896463 Inject 42 Unit(s) Subcutaneous TID in addition to sliding scale 04/08/20 022 Inactive d/c 36u albuterol sulfate HFA 90 mcg/actuation aerosol inhaler RxNorm: 2774924 Take 2 Puff(s) Inhalation Q4H every four hours as needed as needed for SOB, cough, or wheezing 04/07/20 030 Active Banophen 50 mg capsule RxNorm: 1084103 Take 1 Capsule(s) Oral Q6H every 6 hours as needed 04/06/20 023 Inactive diphenhydramine 50 mg tablet RxNorm: 7903177 Take 1 Tablet(s) Oral Q6H every 6 hours as needed 04/06/20 22 022 Inactive diphenhydramine 50 mg tablet RxNorm: 9309508 1 Tablet(s) Oral Q6H every 6 hours as needed 04/06/20 22 022 Inactive Abilify 15 mg tablet RxNorm: 884027 1/2 Tablet(s) Oral QD 03/10/20 22 023 Inactive Shingrix (PF) 50 mcg/0.5 mL intramuscular suspension, kit RxNorm: 1797786 Administer 1/2 Milliliter(s) Intramuscular QD one time shingrix step 2 ( step 1 given 11/04/21) WITH needle - Nursing please administer upon arrival and once administered post a bridge message with date of administration, clinical education manager, expiration date, and lot# so we can update [facility] 02/18/20 22 022 Inactive dispense with needle Shingrix (PF) 50 mcg/0.5 mL intramuscular suspension, kit RxNorm: 5409445 Administer 1/2 Milliliter(s) Intramuscular QD one time shingrix step 2 ( step 1 given 11/04/21) WITH needle - Nursing please administer upon arrival and once administered post a bridge message with date of administration, clinical education manager, expiration date, and lot# so we can update [facility] 02/18/20 22 022 Inactive dispense with needle polyethylene glycol 3350 17 gram/dose oral powder RxNorm: 903044 Take 17=1 capful Gram(s) Oral QD mix with 4-8oz of liquid 01/08/20 22 023 Inactive take this in addition to BID prn order Lyrica 100 mg capsule RxNorm: 660800 Take 1 Capsule(s) Oral QAM every morning 01/08/20 22 022 Inactive d/c 50mg dose acetaminophen 500 mg tablet RxNorm: 954468 Take 1 Tablet(s) Oral TID 01/08/20 22 022 Inactive d/c PRN order Lyrica 150 mg capsule RxNorm: 742502 Take 1 Capsule(s) Oral QHS every night at bedtime 01/08/20 22 023 Inactive d/c 100mg dose Abilify 5 mg tablet RxNorm: 324791 Take 1 Tablet(s) Oral QD take 1 tab po QD #30 refill 5 dx: MDD 12/12/19 22 022 Inactive Abilify 5 mg tablet RxNorm: 083325 Take 1 Tablet(s) Oral QD take 1 tab po QD #30 refill 5 dx: MDD 12/12/19 22 022 Inactive Novolog Flexpen U-100 Insulin aspart 100 unit/mL (3 mL) subcutaneous RxNorm: 2625721 Inject 42 Unit(s) Subcutaneous TID in addition to sliding scale 12/10/19 22 022 Inactive d/c 36u chlorthalidone 25 mg tablet RxNorm: 382050 Take 1 Tablet(s) Oral QAM every morning 12/10/19 22 023 Inactive pregabalin 50 mg capsule RxNorm: 128521 Take 1 Capsule(s) Oral QAM every morning 11/12/19 22 022 Inactive tetanus-diphtheria toxoids-Td 2 Lf unit-2 Lf unit/0.5 mL IM suspension RxNorm: 139 Take 0.5 Miscellaneous Intramuscular 11/12/19 22 022 Inactive need tdap - nursing to administer upon arrival pregabalin 50 mg capsule RxNorm: 246823 Take 1 Capsule(s) Oral QAM every morning 10/16/19 22 022 Inactive pregabalin 50 mg capsule RxNorm: 269271 Take 1 Capsule(s) Oral QAM every morning 10/16/19 22 022 Inactive pregabalin 50 mg capsule RxNorm: 196904 1 Capsule(s) Oral QAM every morning 10/15/19 22 022 Inactive Shingrix (PF) 50 mcg/0.5 mL intramuscular suspension, kit RxNorm: 1284812 Administer 1/2 Milliliter(s) Intramuscular one time Nursing please administer upon arrival and once administered post a bridge message with date of administration, clinical education manager, expiration date, and lot# so we can update [facility]. 10/09/19 22 022 Inactive shingrix step 1 Shingrix (PF) 50 mcg/0.5 mL intramuscular suspension, kit RxNorm: 1685258 Administer 1/2 Milliliter(s) Intramuscular one time Nursing please administer upon arrival and once administered post a bridge message with date of administration, clinical education manager, expiration date, and lot# so we can update [facility]. 10/09/19 22 022 Inactive shingrix step 1 cholecalciferol (vitamin D3) 1,250 mcg (50,000 unit) capsule RxNorm: 012534 Take 1 Capsule(s) Oral QW once a [...] aspart 100 unit/mL (3 mL) subcutaneous RxNorm: 6589177 Inject 10 Unit(s) Subcutaneous QHS every night at bedtime with nighttime snack 10/08/19 22 Inactive Shingrix (PF) 50 mcg/0.5 mL intramuscular suspension, kit RxNorm: 7682669 ADMINISTER 2-DOSE SERIES PER CDC GUIDELINES 10/08/19 22 Active Shingrix (PF) 50 mcg/0.5 mL intramuscular suspension, kit RxNorm: 8398007 ADMINISTER 2-DOSE SERIES PER CDC GUIDELINES 10/08/19 22 Inactive Novolog Flexpen U-100 Insulin aspart 100 unit/mL (3 mL) subcutaneous RxNorm: 0136761 Inject 36 Unit(s) Subcutaneous TID in addition to sliding scale 10/08/19 22 Inactive Novofine Autocover 30 gauge x 1/3 needle RxNorm: Use 1 Miscellaneous UD as directed Use 1 needle as directed to administer insulin 5 times a day Dx:E11.42. 10/03/19 22 Inactive ok to substitute with any covered alternative pen needle benzoyl peroxide 10 % topical cleanser RxNorm: 300451 Apply 1 Application Topical QD apply to face, wash rinse and dry once daily (may change to QOD if drying) 08/19/19 22 05/03/2 022 Inactive (%covered by insurance) #60ml refill 11 dx: acne benzoyl peroxide 10 % topical cleanser RxNorm: 201926 Apply 1 Application Topical QD apply to face, wash rinse and dry once daily (may change to QOD if drying) 08/19/19 22 022 Inactive (%covered by insurance) #60ml refill 11 dx: acne benzoyl peroxide 10 % topical cleanser RxNorm: 466519 Apply 1 Application Topical QD apply to face, wash rinse and dry once daily (may change to QOD if drying) 08/19/19 22 022 Inactive (%covered by insurance) #60ml refill 11 dx: acne Lyrica 50 mg capsule RxNorm: 912533 Take 1 Capsule(s) Oral QAM every morning Take 1 capsule by mouth once daily 08/19/19 Inactive benzoyl peroxide 10 % topical cleanser RxNorm: 452238 Apply 1 Application Topical QD apply to face, wash rinse and dry once daily (may change to QOD if drying) 08/19/19 022 Inactive (%covered by insurance) #60ml refill 11 dx: acne Lyrica 100 mg capsule RxNorm: 496395 Take 1 Capsule(s) Oral QHS every night at bedtime Take 1 capsule by mouth once daily at bedtime 08/19/19 022 Inactive Lyrica 100 mg capsule RxNorm: 815045 Take 1 Capsule(s) Oral QHS every night at bedtime Take 1 capsule by mouth once daily at bedtime 08/16/19 Inactive Lyrica 50 mg capsule RxNorm: 260885 Take 1 Capsule(s) Oral QAM every morning Take 1 capsule by mouth once daily 08/16/19 Inactive Levemir FlexTouch U-100 Insulin 100 unit/mL (3 mL) subcutaneous pen RxNorm: 461100 Inject 86 Unit(s) Subcutaneous BID 08/05/19 22 Inactive d/c 83units BID Lyrica 100 mg capsule RxNorm: 156739 Take 1 Capsule(s) Oral QHS every night at bedtime Take 1 capsule by mouth once daily at bedtime 07/14/19 22 Inactive Lyrica 50 mg capsule RxNorm: 143631 Take 1 Capsule(s) Oral QAM every morning Take 1 capsule by mouth once daily 07/14/19 22 Inactive Levemir FlexTouch U-100 Insulin 100 unit/mL (3 mL) subcutaneous pen RxNorm: 169720 Inject 83 Unit(s) Subcutaneous BID 07/08/19 22 [...] test strip hydralazine 50 mg tablet RxNorm: 301847 Take 1 Tablet(s) Oral QID 05/05/20 022 Inactive venlafaxine ER 225 mg tablet,extended release 24 hr RxNorm: 704079 Take 1 Tablet(s) Oral QD 05/05/20 Inactive venlafaxine ER 225 mg tablet,extended release 24 hr RxNorm: 837299 Take 1 Tablet(s) Oral QD 05/05/20 022 Inactive isosorbide mononitrate ER 30 mg tablet,extended release 24 hr RxNorm: 389986 Take 1 Tablet(s) Oral QD 05/05/20 024 Inactive hydralazine 50 mg tablet RxNorm: 389683 Take 1 Tablet(s) Oral QID 05/05/20 Inactive aspirin 81 mg tablet,delayed release RxNorm: 129814 Take 1 Tablet(s) Oral QD 03/31/20 022 Inactive Vitamin D2 1,250 mcg (50,000 unit) capsule RxNorm: 7027259 Take 1 Capsule(s) Oral QW once a week x 12 weeks 03/31/20 022 Inactive Vitamin D2 1,250 mcg (50,000 unit) capsule RxNorm: 6197074 Take 1 Capsule(s) Oral QW once a week 03/31/20 Inactive Zetia 10 mg tablet RxNorm: 110948 Take 1 Tablet(s) Oral QD 03/31/20 024 Inactive Zetia 10 mg tablet RxNorm: 762286 Take 1 Tablet(s) Oral QD 03/31/20 Inactive hydralazine 25 mg tablet RxNorm: 791450 Take 1 Tablet(s) Oral QID 03/31/20 021 Inactive hydralazine 25 mg tablet RxNorm: 867648 Take 1 Tablet(s) Oral QID 03/31/20 021 Inactive hydralazine 10 mg tablet RxNorm: 639721 Take 1 Tablet(s) Oral QID 03/03/20 021 Inactive cephalexin 500 mg tablet RxNorm: 463104 Take 1 Tablet(s) Oral QID 02/27/20 021 Inactive cephalexin 500 mg tablet RxNorm: 113686 Take 1 Tablet(s) Oral QID 02/27/20 21 021 Inactive lisinopril 40 mg tablet RxNorm: 290464 Take 1 Tablet(s) Oral QD 02/11/20 21 023 Inactive Eliquis 5 mg tablet RxNorm: 7274088 Take 1 Tablet(s) Oral BID 01/05/20 21 022 Inactive Eliquis 5 mg tablet RxNorm: 2477834 Take 2 Tablet(s) Oral QD 01/01/20 21 021 Inactive Lyrica 50 mg capsule RxNorm: 850248 Take 1 Capsule(s) Oral QAM every morning 12/24/19 021 Inactive Lyrica 100 mg capsule RxNorm: 383856 Take 1 Capsule(s) Oral QHS every night at bedtime 12/24/19 021 Inactive clotrimazole 1 % topical cream RxNorm: 393036 Apply to right foot and toes Topical BID 12/04/19 21 023 Inactive metoprolol succinate ER 200 mg tablet,extended release 24 hr RxNorm: 577028 Take 1 Tablet(s) Oral QD 12/04/19 023 Inactive ciprofloxacin 500 mg tablet RxNorm: 683462 Take 1 Tablet(s) Oral QD 11/30/19 21 021 Inactive DX ofloxacin otic drops Accu-Chek Guide test strips RxNorm: USE 1 TO CHECK GLUCOSE 4 TIMES DAILY AND NEEDED 11/15/19 21 023 Inactive Blood Glucose Test strips RxNorm: Use 1 Test Strip QID at PRN 11/05/19 21 023 Inactive E11.42 lisinopril 30 mg tablet RxNorm: 988722 Take 1 Tablet(s) Oral QD 10/30/19 021 Inactive lisinopril 20 mg tablet RxNorm: 808078 Take 1 Tablet(s) Oral QD 10/23/19 21 021 Inactive lisinopril 20 mg tablet RxNorm: 299202 Take 1 Tablet(s) Oral QD 10/23/19 21 021 Inactive lisinopril 10 mg tablet RxNorm: 382868 Take 1 Tablet(s) Oral QD 10/02/19 21 021 Inactive icosapent ethyl 1 gram capsule RxNorm: 5576172 Take 2 Capsule(s) (2 gm) Oral BID with meals 09/12/19 024 Inactive Okay to dispense one 2gm tab if you have that available. icosapent ethyl 1 gram capsule RxNorm: 0247029 Take 2 Capsule(s) Oral BID 09/12/19 21 021 Inactive Okay to dispense one 2gm tab if you have that available. amlodipine 10 mg tablet RxNorm: 499596 Take 1 Tablet(s) Oral QD 09/04/19 21 022 Inactive aspirin 81 mg tablet,delayed release RxNorm: 075520 Take 1 Tablet(s) Oral QD 09/04/19 021 Inactive Levemir FlexTouch U-100 Insulin 100 unit/mL (3 mL) subcutaneous pen RxNorm: 612616 Inject 150 Unit(s) Subcutaneous BID 09/04/19 21 022 Inactive venlafaxine ER 150 mg tablet,extended release 24 hr RxNorm: 060496 Take 1 Tablet(s) Oral QD 09/04/19 021 Inactive clotrimazole-betame thasone 1 %-0.05 % topical cream RxNorm: 066374 Apply to rash on red area on left abdomen/chest Topical BID 08/10/19 21 021 Inactive amlodipine 5 mg tablet RxNorm: 071119 Take 1 Tablet(s) Oral QD 07/31/19 21 021 Inactive cephalexin 500 mg tablet RxNorm: 722576 Take 1 Tablet(s) Oral BID BID - Twice Daily 07/31/19 21 021 Inactive Start 08/01/20 pantoprazole 40 mg tablet,delayed release RxNorm: 191218 Take 1 Tablet(s) Oral QAM every morning 07/08/19 21 022 Inactive senna 8.6 mg tablet RxNorm: 665263 Take 1 Tablet(s) Oral QD 07/08/19 21 022 Inactive carbamazepine 200 mg tablet RxNorm: 286148 Take 1 Tablet(s) Oral BID 07/08/19 21 022 Inactive clopidogrel 75 mg tablet RxNorm: 573244 Take 1 Tablet(s) Oral QD 07/08/19 21 021 Inactive Blood Glucose Test strips RxNorm: Use 1 Test Strip QID at PRN 07/08/19 21 Inactive E11.42 Novolog Flexpen U-100 Insulin aspart 100 unit/mL (3 mL) subcutaneous RxNorm: 8588540 Administer per sliding scale Milliliter(s) Subcutaneous TID 151-200: 10 u; 201-250: 20 u; 251-300: 30 u; 301-350: 40 u; 351-400: 50 u. 07/08/19 21 022 Inactive lisinopril 5 mg tablet RxNorm: 752113 Take 1 Tablet(s) Oral QD 07/08/19 Inactive Novolog Flexpen U-100 Insulin aspart 100 unit/mL (3 mL) subcutaneous RxNorm: 6872775 Inject 85 Unit(s) Subcutaneous TID 07/08/19 022 Inactive pravastatin 80 mg tablet RxNorm: 415151 Take 1 Tablet(s) Oral QHS every night at bedtime 07/08/19 023 Inactive clotrimazole 1 % topical cream RxNorm: 285521 Apply to bilateral groin areas Topical BID 07/08/19 022 Inactive metoprolol succinate ER 200 mg tablet,extended release 24 hr RxNorm: 817684 Take 1 Tablet(s) Oral QD 07/08/19 21 021 Inactive Vitamin D3 25 mcg (1,000 unit) tablet RxNorm: 774388 Take 1 Tablet(s) Oral QD 07/08/19 21 021 Inactive isosorbide dinitrate 30 mg tablet RxNorm: 176639 Take 1 Tablet(s) Oral QD 07/08/19 21 021 Inactive Levemir FlexTouch U-100 Insulin 100 unit/mL (3 mL) subcutaneous pen RxNorm: 163167 Inject 140 Unit(s) Subcutaneous BID 07/08/19 21 021 Inactive torsemide 20 mg tablet RxNorm: 378226 Take 1 Tablet(s) Oral QD 07/08/19 21 023 Inactive venlafaxine 75 mg tablet RxNorm: 561196 Take 1 Tablet(s) Oral QD 07/08/19 21 021 Inactive acetaminophen 500 mg tablet RxNorm: 359632 Take 1 Tablet(s) Oral TID as needed for headache 06/18/19 21 021 Inactive acetaminophen 500 mg tablet RxNorm: 878979 Take 1 Tablet(s) Oral TID as needed for headache 06/18/19 21 021 Inactive Lyrica 100 mg capsule RxNorm: 220538 Take 1 Capsule(s) Oral QHS every night at bedtime 06/11/19 21 021 Inactive Lyrica 50 mg capsule RxNorm: 015797 Take 1 Capsule(s) Oral QAM every morning 06/10/19 21 021 Inactive hydrocortisone 2.5 % topical cream RxNorm: 003274 Apply to bilateral groin creases Topical BID 05/15/20 20 021 Inactive clotrimazole 1 % topical cream RxNorm: 556814 Apply to bilateral groin areas Topical BID 05/15/20 20 021 Inactive Lyrica 50 mg capsule RxNorm: 497563 Take 1 Capsule(s) Oral QAM every morning 05/14/20 20 020 Inactive Lyrica 100 mg capsule RxNorm: 379666 Take 1 Capsule(s) Oral QHS every night [...] Inactive Nystop 100,000 unit/gram topical powder RxNorm: 414592 Apply to abd folds, under breasts and L side of groin Topical BID x 14 days, then BID PRN 04/08/20 20 Inactive dx: yeast dermatitis Lyrica 100 mg capsule RxNorm: 886337 Take 1 Capsule(s) Oral QHS every night at bedtime 03/13/20 20 Inactive Lyrica 50 mg capsule RxNorm: 502180 Take 1 Capsule(s) Oral QAM every morning 03/13/20 20 Inactive ketoconazole 2 % shampoo RxNorm: 511259 Apply Topical two times a week with showers 03/11/20 20 Inactive cholecalciferol (vitamin D3) 50 mcg (2,000 unit) tablet RxNorm: 747267 Take 1 Tablet(s) Oral QD 03/11/20 20 021 Inactive Zetia 10 mg tablet RxNorm: 433076 Take 1 Tablet(s) Oral QD 03/07/20 20 021 Inactive Zetia 10 mg tablet RxNorm: 133112 Take 1 Tablet(s) Oral QD 03/07/20 20 Inactive Lyrica 50 mg capsule RxNorm: 614678 Take 1 Capsule(s) Oral QAM every morning 02/15/20 20 Inactive Lyrica 100 mg capsule RxNorm: 076524 Take 1 Capsule(s) Oral QHS every night at bedtime 02/15/20 20 Inactive Lyrica 100 mg capsule RxNorm: 478809 Take 1 Capsule(s) Oral QHS every night at bedtime 02/15/20 20 Inactive Lyrica 50 mg capsule RxNorm: 437487 Take 1 Capsule(s) Oral QAM every morning 02/15/20 20 Inactive metoprolol succinate ER 200 mg tablet,extended release 24 hr RxNorm: 111368 Take 1 Tablet(s) Oral QD 08/12/19 23 Active loperamide 2 mg capsule RxNorm: 170633 Take 1 Capsule(s) Oral QID as needed 06/12/19 22 Active hydralazine 50 mg tablet RxNorm: 660849 Take 1 Tablet(s) Oral QID 08/12/19 23 Active Soft Touch Lancets RxNorm: miscellaneous 03/04/20 24 Active venlafaxine ER 75 mg capsule,extended release 24 hr RxNorm: 784213 Take 3 Capsule(s) Oral QD 06/12/19 22 023 Inactive polyethylene glycol 3350 17 gram/dose oral powder RxNorm: 352790 Take 17=1 capful Gram(s) Oral BID as needed mix with 4-8oz of liquid 06/12/19 22 024 Inactive icosapent ethyl 1 gram capsule RxNorm: 3937119 Take 2 Capsule(s) (2 gm) Oral BID with meals 10/07/19 23 023 Inactive Okay to dispense one 2gm tab if you have that available. Levemir FlexTouch U-100 Insulin 100 unit/mL (3 mL) subcutaneous pen RxNorm: 753182 Inject 80 Unit(s) Subcutaneous BID 07/14/19 23 023 Inactive Novolog Flexpen U-100 Insulin aspart 100 unit/mL (3 mL) subcutaneous RxNorm: 7873144 Insert 30 Unit(s) Subcutaneous TID with meals [...] Referral: [facility] WPtel: [phone] , [address] [id number] Referral Records Received 09/21/2022 Referral: [facility] WPtel: [phone] [id number] [place] Referral Completed 05/28/2021 Referral: General Cardiology [...] Sister Jyotsna involved in his care cell# [phone] Guardian: Giulia (tapan met in person 09/01/21), [...] Martines note from 11.08.2023 at [facility] (follow up 6 months)Colon & Rectal Surgery visit scheduled for 03/08/24 with Matilde Pérez PA-C. 02/08/2024
--- OUTSIDE RECORDS SUMMARY | 2024-03-03 19:00 | XMS_ITS | CCD ---
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, [facility] Chronic Care Management U navailable Summary Purpose DataExchange Insurance Providers Payer name Policy type / Coverage type Covered republican ID Effective Begin Date Effective End Date [place] Part B [id number] Unknown Unknown [place] Medicare Part B [id number] Unknown Unknown Family history Sister Brittany Suggs Diagnosis Age At Onset No Family Disease Entered N/A Runs in the family Diagnosis Age At Onset No Known Diseases N/A Sister Blanka Mcduffie Diagnosis Age At Onset No Family Disease Entered N/A Social History Social History Element Codes Description Effec tive Dates Tobacco history SNOMED CT: 963952518 Never smoker 01/16 Sexually Active? Unknown No [...] 10/07/2021 Living arrangements Unknown Long-Term 09/03/[address]: 503601371 No Alcohol Consum ption 09/02/2020 Allergies, Adverse Reactions, Alerts Substance Reaction Codes Entered Date Inactivated Date Status * NO KNOWN FOOD ALLERGIES Unknown 07/13/2023 No Inactive Date Active LISINOPRIL RxNorm: 99159 02/12/2020 No Inactive Da te Active Metformin [...] 09/07/2023 Resolved Coronary artery disease invo lving [place] [...] PRN) to be use with new Accu [place] meter 03/04/20 024 Active ok to substitute with any covered alternative test strip nystatin 100,000 unit/gram topical powder RxNorm: 951204 Apply 1 Application Topical BID as needed [...] (Concentrated) Insulin 500 unit/mL subcutaneous soln RxNorm: 201090 Inject 100 Unit(s) Subcutaneous TID 02/17/20 24 025 Active Basaglar KwikPen U-100 Insulin 100 unit/mL (3 mL) subcutaneous RxNorm: 2742455 Inject 30 Unit(s) Subcutaneous BID 02/10/20 24 024 Active Please dispense one month supply. Humulin R U-500 (Concentrated) Insulin 500 unit/mL subcutaneous soln RxNorm: 432470 Inject 100 Unit(s) Subcutaneous TID 02/10/20 24 024 Inactive pregabalin 100 mg capsule RxNorm: 295068 Take 1 Capsule(s) Oral QAM every morning 02/07/20 24 024 Active isosorbide mononitrate ER 60 mg tablet,extended release 24 hr RxNorm: 591010 Take 1 Tablet(s) Oral QD 02/01/20 24 025 Active aripiprazole 15 mg tablet RxNorm: 679875 Take 1/2 Tablet(s) Oral QD 02/01/20 24 025 Active torsemide 20 mg tablet RxNorm: 153753 1 TAB ORALLY DAILY (DX: EDEMA) 01/27/20 No Stop Date Active potassium chloride ER 20 mEq tablet,extended release(part/cryst) RxNorm: 2341523 2 TABS (40MEQ) ORALLY TWICE DAILY (DX: HYPOKALEMIA) 01/27/20 24 No Stop Date Active cephalexin 500 mg capsule RxNorm: 526669 Take 1 Capsule(s) Oral QID 12/17/19 24 08/08/2 024 Inactive cephalexin 500 mg capsule RxNorm: 792957 Take 1 Capsule(s) Oral QID 12/17/19 24 Inactive acetaminophen 500 mg tablet RxNorm: 202127 (MAX APAP:4GM/24HR) Take 1 Tablet(s) Oral TID as needed for pain 12/10/19 24 Active torsemide 20 mg tablet RxNorm: 345184 Take 1 Tablet(s) Oral QD 10/26/19 24 [...] %-0.3 % drops in a dropperette RxNorm: 461695 Apply 1-2 Drop(s) Both eyes BID as needed 09/28/19 24 Active erythromycin 5 mg/gram (0.5 %) eye ointment RxNorm: 100570 Apply 1 Application Both eyes QHS every night at bedtime Instill ~1 cm ribbon into affected eye 09/28/19 24 Inactive Artificial Tears (PF) 0.1 %-0.3 % drops in a dropperette RxNorm: 627074 Apply 1-2 Drop(s) Both eyes BID as needed 09/28/19 24 024 Inactive erythromycin 5 mg/gram (0.5 %) eye ointment RxNorm: 279540 Apply 1 Application Both eyes QHS every night at bedtime Instill ~1 cm ribbon into affected eye 09/28/19 24 Inactive acetaminophen 500 mg tablet RxNorm: 147454 (MAX APAP:4GM/24HR) Take 1 Tablet(s) Oral TID as needed for pain 09/24/19 24 Inactive carvedilol 25 mg tablet RxNorm: 405980 Take 1 Tablet(s) Oral QD 09/08/19 24 No Stop Date Active pregabalin 100 mg capsule RxNorm: 128589 Take 1 Capsule(s) Oral QAM every morning 09/07/19 24 024 Inactive rosuvastatin 40 mg tablet RxNorm: 422032 Take 1 Tablet(s) Oral QPM every evening 07/13/19 24 No Stop Date Active ezetimibe 10 mg tablet RxNorm: 263537 Take 1 Tablet(s) Oral QD 07/13/19 24 No Stop Date Active bisacodyl 10 mg rectal suppository RxNorm: 316405 Insert 1 Suppository Rectal QD as needed 07/13/19 24 No Stop Date Active polyethylene glycol 3350 17 gram/dose oral powder RxNorm: 585717 Take 17 Gram(s) Oral BID as needed mix in 4-8ox water 07/13/19 24 No Stop Date Active ketoconazole 2 % shampoo RxNorm: 253596 Apply 1 Application Topical UD as directed 07/13/19 24 No Stop Date Active Ozempic 1 mg/dose (4 mg/3 mL) subcutaneous pen injector RxNorm: 4021258 Inject 1 Milligram(s) Subcutaneous QW once a week 07/13/19 24 No Stop Date Active Guaifenesin AC 10 mg-100 mg/5 mL oral liquid RxNorm: 636356 Take 10 Milliliter(s) Oral Q4H every four hours as needed 07/13/19 24 No Stop Date Active ammonium lactate 12 % topical cream RxNorm: 267616 Apply 1 Application Topical BID 07/13/19 24 No Stop Date Active hydrocortisone 2.5 % topical cream RxNorm: 361188 Apply 1 Application Topical BID as needed 07/13/19 24 No Stop Date Active rosuvastatin 20 mg sprinkle capsule RxNorm: 3346338 Take 1 Capsule(s) Oral QD 07/13/19 24 No Stop Date Active Vascepa 1 gram capsule RxNorm: 9466345 Take 2 Capsule(s) Oral BID 07/13/19 24 No Stop Date Active venlafaxine ER 75 mg capsule,extended release 24 hr RxNorm: 868395 Take 3 Capsule(s) Oral QD 07/13/19 24 No Stop Date Active aripiprazole 15 mg tablet RxNorm: 114367 Take 1/2 Tablet(s) Oral QD 07/13/19 24 024 Inactive isosorbide mononitrate ER 60 mg tablet,extended release 24 hr RxNorm: 298316 Take 1 Tablet(s) Oral QD 07/13/19 24 024 Inactive Basaglar KwikPen U-100 Insulin 100 unit/mL (3 mL) subcutaneous RxNorm: 2576451 Inject 30U SubQ twice daily 07/07/19 24 024 Inactive Please dispense one month supply. Basaglar KwikPen U-100 Insulin 100 unit/mL (3 mL) subcutaneous RxNorm: 5193671 Inject 30U SubQ twice daily 07/07/19 24 024 Inactive Please dispense one month supply. pregabalin 150 mg capsule RxNorm: 409015 Take 1 Capsule(s) Oral QHS every night at bedtime 07/05/19 24 024 Inactive pregabalin 150 mg capsule RxNorm: 869889 Take 1 Capsule(s) Oral QHS every night at bedtime 07/05/19 24 024 Inactive polyethylene glycol 3350 17 gram/dose oral powder RxNorm: 946176 Take 1 Packet Oral QD as needed (1 packet = 17g) mix with 4-8oz of liquid 06/15/19 24 024 Inactive bisacodyl 10 mg rectal suppository RxNorm: 586583 Insert one suppository per rectum once daily as needed for constipation 06/15/19 24 024 Inactive bisacodyl 10 mg rectal suppository RxNorm: 093788 Insert one suppository per rectum once daily as needed for constipation 06/15/19 24 024 Inactive pregabalin 100 mg capsule RxNorm: 875046 Take 1 Capsule(s) Oral QAM every morning 04/27/20 23 024 Inactive Levemir FlexPen 100 unit/mL (3 mL) solution subcutaneous insulin pen RxNorm: 392800 Inject 30 Unit(s) Subcutaneous BID 04/27/20 23 024 Inactive rosuvastatin 40 mg tablet RxNorm: 778780 Take 1 Tablet(s) Oral QPM every evening 04/16/20 23 024 Inactive D/C rosuvastatin 20mg venlafaxine ER 75 mg capsule,extended release 24 hr RxNorm: 550997 Take 3 Capsule(s) Oral QD 04/14/20 023 Inactive pregabalin 100 mg capsule RxNorm: 962442 Take 1 Capsule(s) Oral QAM every morning [...] strip clotrimazole 1 % topical cream RxNorm: 615655 Take apply topically to abdominal folds twice daily for 14 days 03/12/20 024 Inactive Ozempic 1 mg/dose (4 mg/3 mL) subcutaneous pen injector RxNorm: 3933532 Inject 1 Milligram(s) Subcutaneous QW once a week 03/11/20 23 023 Inactive rosuvastatin 20 mg tablet RxNorm: 992471 Take 1 Tablet(s) Oral QD 02/26/20 23 023 Inactive d/c pravastatin 80mg Ozempic 1 mg/dose (4 mg/3 mL) subcutaneous pen injector RxNorm: 9469589 Inject 1 Milligram(s) Subcutaneous QW once a week 02/20/20 23 023 Inactive pregabalin 150 mg capsule RxNorm: 752147 Take 1 Capsule(s) Oral HS at bed time 02/19/20 23 023 Inactive pregabalin 100 mg capsule RxNorm: 156710 Take 1 Capsule(s) Oral QAM every morning 02/18/20 23 023 Inactive venlafaxine ER 75 mg capsule,extended release 24 hr RxNorm: 432132 Take 3 Capsule(s) Oral QD 02/04/20 23 [...] 150 mg capsule,extended release 24 hr RxNorm: 247946 Take 1 Capsule(s) Oral QD 02/03/20 23 023 Inactive acetaminophen 500 mg tablet RxNorm: 669429 1 TABLET ORALLY 3 TIMES DAILY (MAX APAP:4GM/24HR) 12/15/19 23 023 Inactive clotrimazole 1 % topical cream RxNorm: 977839 apply 1g topically to top of feet and in between toes BID 12/09/19 23 023 Inactive potassium chloride ER 20 mEq tablet,extended release RxNorm: 348945 Take 1 Tablet(s) Oral BID 12/09/19 23 024 Inactive d/c 20mEq once daily (sent from hospital) nystatin 100,000 unit/gram topical powder RxNorm: 569475 APPLY TO AFFECTED AREAS TOPICALLY 2 TIMES DAILY 11/21/19 23 023 Inactive Nystop 100,000 unit/gram topical powder RxNorm: 291094 Apply to abd folds, under breasts and L side of groin Topical BID x 14 days, then BID PRN 11/20/19 23 023 Inactive dx: yeast dermatitis [place] Ultra Strength 4 %-30 %-10 % topical cream RxNorm: 318712 Apply 1 Gram(s) Topical QID PRN to feet and legs for neuropathic pain 11/11/19 23 024 Inactive clotrimazole 1 % topical cream RxNorm: 562967 Apply 1/2 Gram(s) Topical BID Apply to affected areas of groin, periarea, and abdominal topically 2 times daily 11/10/19 23 023 Inactive hydrocortisone 2.5 % topical cream RxNorm: 842756 Apply 1/2 Gram(s) Topical BID as needed 11/10/19 024 Inactive Levemir FlexPen 100 unit/mL (3 mL) solution subcutaneous insulin pen RxNorm: 254828 Inject 30 Unit(s) Subcutaneous BID 10/07/19 023 Inactive Humulin R U-500 (Concentrated) Insulin 500 unit/mL subcutaneous soln RxNorm: 550521 Inject 100 Unit(s) Subcutaneous TID 10/07/19 024 Inactive Ozempic 0.25 mg or 0.5 mg (2 mg/3 mL) subcutaneous pen injector RxNorm: 7715550 Inject 1/2 Milligram(s) Subcutaneous QW once a week 10/07/19 024 Inactive aripiprazole 15 mg tablet RxNorm: 023727 1/2 TAB (7.5MG) ORALLY DAILY (DX:MAJOR DEPRESSIVE DISORDER) 09/23/19 023 Inactive Accu-Chek Guide test strips RxNorm: Use 1 Test Strip QID 09/15/19 23 023 Inactive ok to substitute with any covered alternative test strip Lancets,Thin 28 gauge RxNorm: Use 1 as directed QID 09/15/19 23 023 Inactive torsemide 20 mg tablet RxNorm: 021443 Take 1 Tablet(s) Oral BID 09/09/19 024 Inactive d/c once daily dosing carvedilol 25 mg tablet RxNorm: 501424 Take 1 Tablet(s) Oral QD 08/25/19 23 024 Inactive pregabalin 150 mg capsule RxNorm: 321797 1 Capsule(s) Oral HS at bed time 08/18/19 023 Inactive pregabalin 100 mg capsule RxNorm: 047027 1 Capsule(s) Oral QAM every morning 08/18/19 23 023 Inactive carvedilol 25 mg tablet RxNorm: 452495 1 Tablet(s) Oral QD 07/28/19 23 023 Inactive lisinopril 20 mg tablet RxNorm: 441723 Give 1 Tablet(s) Oral QD 07/28/19 23 023 Inactive Lyrica 150 mg capsule RxNorm: 211835 Take 1 Capsule(s) Oral QHS every night at bedtime 07/19/19 23 023 Inactive d/c 100mg dose Diflucan 150 mg tablet RxNorm: 434640 Take 1 Tablet(s) Oral QD repeat on day 3 and 6 07/19/19 23 023 Inactive pregabalin 100 mg capsule RxNorm: 307507 Take 1 Capsule(s) Oral QAM every morning 07/19/19 23 023 Inactive gatifloxacin 0.5 % eye drops RxNorm: 843772 Instill 1 Drop(s) as directed TID Instill 1 drop in to affected eye(s) starting 1 day prior to surgery and continue until gone (do not exceed 4 weeks). 07/13/19 23 023 Inactive carvedilol 25 mg tablet RxNorm: 079932 2 Tablet(s) Oral BID 07/13/19 023 Inactive Humulin R Regular U-100 Insulin 100 unit/mL injection solution RxNorm: 083794 85 Unit(s) Injection TID 07/13/19 23 023 Inactive ketorolac 0.5 % eye drops RxNorm: 958776 Instill 1 Drop(s) as directed QID Instill 1 drop into affected eye(s) 4 times daily starting 1 day prior to surgery and continue until gone (do not exceed 4 weeks). 07/13/19 023 Inactive Diflucan 150 mg tablet RxNorm: 456340 Take 1 Tablet(s) Oral QD repeat on day 3 and 6 06/30/19 23 023 Inactive Accu-Chek Guide test strips RxNorm: Use 1 Test Strip QID Use 1 test strip to monitor blood glucose 4 times daily and as needed. Dx:E11.42. 06/23/19 23 023 Inactive ok to substitute with any covered alternative test strip dextromethorphan-gu aifenesin 10 mg-100 mg/5 mL oral liquid RxNorm: 171850 Take 10 Milliliter(s) Oral every 4 hours as needed for cough 06/19/19 023 Inactive dextromethorphan-gu aifenesin 10 mg-100 mg/5 mL oral liquid RxNorm: 662481 Take 10 Milliliter(s) Oral every 4 hours as needed for cough 06/19/19 023 Inactive Lyrica 150 mg capsule RxNorm: 244024 Take 1 Capsule(s) Oral QHS every night at bedtime 06/18/19 023 Inactive d/c 100mg dose aripiprazole 15 mg tablet RxNorm: 974754 /2 TAB (7.5MG) ORALLY DAILY (DX:MAJOR DEPRESSIVE DISORDER) 06/05/19 023 Inactive pregabalin 100 mg capsule RxNorm: 910092 1 Capsule(s) Oral QAM every morning 06/02/19 023 Inactive Banophen 50 mg capsule RxNorm: 5230474 Take 1 Capsule(s) Oral Q6H every 6 hours as needed 05/19/19 23 No Stop Date Active Novolog Flexpen U-100 Insulin aspart 100 unit/mL (3 mL) subcutaneous RxNorm: 0881567 Inject 10 Unit(s) Subcutaneous QHS every night at bedtime with nighttime snack 04/08/20 022 Inactive Novolog Flexpen U-100 Insulin aspart 100 unit/mL (3 mL) subcutaneous RxNorm: 2046640 Inject 42 Unit(s) Subcutaneous TID in addition to sliding scale 04/08/20 022 Inactive d/c 36u albuterol sulfate HFA 90 mcg/actuation aerosol inhaler RxNorm: 5507490 Take 2 Puff(s) Inhalation Q4H every four hours as needed as needed for SOB, cough, or wheezing 04/07/20 030 Active Banophen 50 mg capsule RxNorm: 4496365 Take 1 Capsule(s) Oral Q6H every 6 hours as needed 04/06/20 023 Inactive diphenhydramine 50 mg tablet RxNorm: 7824020 Take 1 Tablet(s) Oral Q6H every 6 hours as needed 04/06/20 22 022 Inactive diphenhydramine 50 mg tablet RxNorm: 7426092 1 Tablet(s) Oral Q6H every 6 hours as needed 04/06/20 22 022 Inactive Abilify 15 mg tablet RxNorm: 159400 1/2 Tablet(s) Oral QD 03/10/20 22 023 Inactive Shingrix (PF) 50 mcg/0.5 mL intramuscular suspension, kit RxNorm: 6116424 Administer 1/2 Milliliter(s) Intramuscular QD one time shingrix step 2 ( step 1 given 11/04/21) WITH needle - Nursing please administer upon arrival and once administered post a bridge message with date of administration, retail parts professional, expiration date, and lot# so we can update [facility] 02/18/20 22 022 Inactive dispense with needle Shingrix (PF) 50 mcg/0.5 mL intramuscular suspension, kit RxNorm: 7878835 Administer 1/2 Milliliter(s) Intramuscular QD one time shingrix step 2 ( step 1 given 11/04/21) WITH needle - Nursing please administer upon arrival and once administered post a bridge message with date of administration, retail parts professional, expiration date, and lot# so we can update [facility] 02/18/20 22 022 Inactive dispense with needle polyethylene glycol 3350 17 gram/dose oral powder RxNorm: 743342 Take 17=1 capful Gram(s) Oral QD mix with 4-8oz of liquid 01/08/20 22 023 Inactive take this in addition to BID prn order Lyrica 100 mg capsule RxNorm: 607971 Take 1 Capsule(s) Oral QAM every morning 01/08/20 22 022 Inactive d/c 50mg dose acetaminophen 500 mg tablet RxNorm: 062274 Take 1 Tablet(s) Oral TID 01/08/20 22 022 Inactive d/c PRN order Lyrica 150 mg capsule RxNorm: 001139 Take 1 Capsule(s) Oral QHS every night at bedtime 01/08/20 22 023 Inactive d/c 100mg dose Abilify 5 mg tablet RxNorm: 364650 Take 1 Tablet(s) Oral QD take 1 tab po QD #30 refill 5 dx: MDD 12/12/19 22 022 Inactive Abilify 5 mg tablet RxNorm: 120520 Take 1 Tablet(s) Oral QD take 1 tab po QD #30 refill 5 dx: MDD 12/12/19 22 022 Inactive Novolog Flexpen U-100 Insulin aspart 100 unit/mL (3 mL) subcutaneous RxNorm: 9300314 Inject 42 Unit(s) Subcutaneous TID in addition to sliding scale 12/10/19 22 022 Inactive d/c 36u chlorthalidone 25 mg tablet RxNorm: 904285 Take 1 Tablet(s) Oral QAM every morning 12/10/19 22 023 Inactive pregabalin 50 mg capsule RxNorm: 411990 Take 1 Capsule(s) Oral QAM every morning 11/12/19 22 022 Inactive tetanus-diphtheria toxoids-Td 2 Lf unit-2 Lf unit/0.5 mL IM suspension RxNorm: 139 Take 0.5 Miscellaneous Intramuscular 11/12/19 22 022 Inactive need tdap - nursing to administer upon arrival pregabalin 50 mg capsule RxNorm: 321062 Take 1 Capsule(s) Oral QAM every morning 10/16/19 22 022 Inactive pregabalin 50 mg capsule RxNorm: 850574 Take 1 Capsule(s) Oral QAM every morning 10/16/19 22 022 Inactive pregabalin 50 mg capsule RxNorm: 966206 1 Capsule(s) Oral QAM every morning 10/15/19 22 022 Inactive Shingrix (PF) 50 mcg/0.5 mL intramuscular suspension, kit RxNorm: 4067147 Administer 1/2 Milliliter(s) Intramuscular one time Nursing please administer upon arrival and once administered post a bridge message with date of administration, retail parts professional, expiration date, and lot# so we can update [facility]. 10/09/19 22 022 Inactive shingrix step 1 Shingrix (PF) 50 mcg/0.5 mL intramuscular suspension, kit RxNorm: 2938999 Administer 1/2 Milliliter(s) Intramuscular one time Nursing please administer upon arrival and once administered post a bridge message with date of administration, retail parts professional, expiration date, and lot# so we can update [facility]. 10/09/19 22 022 Inactive shingrix step 1 cholecalciferol (vitamin D3) 1,250 mcg (50,000 unit) capsule RxNorm: 399472 Take 1 Capsule(s) Oral QW once a [...] aspart 100 unit/mL (3 mL) subcutaneous RxNorm: 4387734 Inject 10 Unit(s) Subcutaneous QHS every night at bedtime with nighttime snack 10/08/19 22 Inactive Shingrix (PF) 50 mcg/0.5 mL intramuscular suspension, kit RxNorm: 7941507 ADMINISTER 2-DOSE SERIES PER CDC GUIDELINES 10/08/19 22 Active Shingrix (PF) 50 mcg/0.5 mL intramuscular suspension, kit RxNorm: 9292594 ADMINISTER 2-DOSE SERIES PER CDC GUIDELINES 10/08/19 22 Inactive Novolog Flexpen U-100 Insulin aspart 100 unit/mL (3 mL) subcutaneous RxNorm: 7232519 Inject 36 Unit(s) Subcutaneous TID in addition to sliding scale 10/08/19 22 Inactive Novofine Autocover 30 gauge x 1/3 needle RxNorm: Use 1 Miscellaneous UD as directed Use 1 needle as directed to administer insulin 5 times a day Dx:E11.42. 10/03/19 22 Inactive ok to substitute with any covered alternative pen needle benzoyl peroxide 10 % topical cleanser RxNorm: 743767 Apply 1 Application Topical QD apply to face, wash rinse and dry once daily (may change to QOD if drying) 08/19/19 22 05/03/2 022 Inactive (%covered by insurance) #60ml refill 11 dx: acne benzoyl peroxide 10 % topical cleanser RxNorm: 042275 Apply 1 Application Topical QD apply to face, wash rinse and dry once daily (may change to QOD if drying) 08/19/19 22 022 Inactive (%covered by insurance) #60ml refill 11 dx: acne benzoyl peroxide 10 % topical cleanser RxNorm: 253990 Apply 1 Application Topical QD apply to face, wash rinse and dry once daily (may change to QOD if drying) 08/19/19 22 022 Inactive (%covered by insurance) #60ml refill 11 dx: acne Lyrica 50 mg capsule RxNorm: 746208 Take 1 Capsule(s) Oral QAM every morning Take 1 capsule by mouth once daily 08/19/19 Inactive benzoyl peroxide 10 % topical cleanser RxNorm: 706639 Apply 1 Application Topical QD apply to face, wash rinse and dry once daily (may change to QOD if drying) 08/19/19 022 Inactive (%covered by insurance) #60ml refill 11 dx: acne Lyrica 100 mg capsule RxNorm: 326981 Take 1 Capsule(s) Oral QHS every night at bedtime Take 1 capsule by mouth once daily at bedtime 08/19/19 022 Inactive Lyrica 100 mg capsule RxNorm: 240517 Take 1 Capsule(s) Oral QHS every night at bedtime Take 1 capsule by mouth once daily at bedtime 08/16/19 Inactive Lyrica 50 mg capsule RxNorm: 524627 Take 1 Capsule(s) Oral QAM every morning Take 1 capsule by mouth once daily 08/16/19 Inactive Levemir FlexTouch U-100 Insulin 100 unit/mL (3 mL) subcutaneous pen RxNorm: 325420 Inject 86 Unit(s) Subcutaneous BID 08/05/19 22 Inactive d/c 83units BID Lyrica 100 mg capsule RxNorm: 416546 Take 1 Capsule(s) Oral QHS every night at bedtime Take 1 capsule by mouth once daily at bedtime 07/14/19 22 Inactive Lyrica 50 mg capsule RxNorm: 398198 Take 1 Capsule(s) Oral QAM every morning Take 1 capsule by mouth once daily 07/14/19 22 Inactive Levemir FlexTouch U-100 Insulin 100 unit/mL (3 mL) subcutaneous pen RxNorm: 144823 Inject 83 Unit(s) Subcutaneous BID 07/08/19 22 [...] test strip hydralazine 50 mg tablet RxNorm: 198150 Take 1 Tablet(s) Oral QID 05/05/20 022 Inactive venlafaxine ER 225 mg tablet,extended release 24 hr RxNorm: 374510 Take 1 Tablet(s) Oral QD 05/05/20 Inactive venlafaxine ER 225 mg tablet,extended release 24 hr RxNorm: 090250 Take 1 Tablet(s) Oral QD 05/05/20 022 Inactive isosorbide mononitrate ER 30 mg tablet,extended release 24 hr RxNorm: 921993 Take 1 Tablet(s) Oral QD 05/05/20 024 Inactive hydralazine 50 mg tablet RxNorm: 283693 Take 1 Tablet(s) Oral QID 05/05/20 Inactive aspirin 81 mg tablet,delayed release RxNorm: 983831 Take 1 Tablet(s) Oral QD 03/31/20 022 Inactive Vitamin D2 1,250 mcg (50,000 unit) capsule RxNorm: 4471796 Take 1 Capsule(s) Oral QW once a week x 12 weeks 03/31/20 022 Inactive Vitamin D2 1,250 mcg (50,000 unit) capsule RxNorm: 1397680 Take 1 Capsule(s) Oral QW once a week 03/31/20 Inactive Zetia 10 mg tablet RxNorm: 341911 Take 1 Tablet(s) Oral QD 03/31/20 024 Inactive Zetia 10 mg tablet RxNorm: 171008 Take 1 Tablet(s) Oral QD 03/31/20 Inactive hydralazine 25 mg tablet RxNorm: 451393 Take 1 Tablet(s) Oral QID 03/31/20 021 Inactive hydralazine 25 mg tablet RxNorm: 968216 Take 1 Tablet(s) Oral QID 03/31/20 021 Inactive hydralazine 10 mg tablet RxNorm: 170813 Take 1 Tablet(s) Oral QID 03/03/20 021 Inactive cephalexin 500 mg tablet RxNorm: 250240 Take 1 Tablet(s) Oral QID 02/27/20 021 Inactive cephalexin 500 mg tablet RxNorm: 908787 Take 1 Tablet(s) Oral QID 02/27/20 21 021 Inactive lisinopril 40 mg tablet RxNorm: 015023 Take 1 Tablet(s) Oral QD 02/11/20 21 023 Inactive Eliquis 5 mg tablet RxNorm: 4276235 Take 1 Tablet(s) Oral BID 01/05/20 21 022 Inactive Eliquis 5 mg tablet RxNorm: 8801836 Take 2 Tablet(s) Oral QD 01/01/20 21 021 Inactive Lyrica 50 mg capsule RxNorm: 207489 Take 1 Capsule(s) Oral QAM every morning 12/24/19 021 Inactive Lyrica 100 mg capsule RxNorm: 315958 Take 1 Capsule(s) Oral QHS every night at bedtime 12/24/19 021 Inactive clotrimazole 1 % topical cream RxNorm: 823439 Apply to right foot and toes Topical BID 12/04/19 21 023 Inactive metoprolol succinate ER 200 mg tablet,extended release 24 hr RxNorm: 463763 Take 1 Tablet(s) Oral QD 12/04/19 023 Inactive ciprofloxacin 500 mg tablet RxNorm: 791638 Take 1 Tablet(s) Oral QD 11/30/19 21 021 Inactive DX ofloxacin otic drops Accu-Chek Guide test strips RxNorm: USE 1 TO CHECK GLUCOSE 4 TIMES DAILY AND NEEDED 11/15/19 21 023 Inactive Blood Glucose Test strips RxNorm: Use 1 Test Strip QID at PRN 11/05/19 21 023 Inactive E11.42 lisinopril 30 mg tablet RxNorm: 034683 Take 1 Tablet(s) Oral QD 10/30/19 021 Inactive lisinopril 20 mg tablet RxNorm: 428495 Take 1 Tablet(s) Oral QD 10/23/19 21 021 Inactive lisinopril 20 mg tablet RxNorm: 015265 Take 1 Tablet(s) Oral QD 10/23/19 21 021 Inactive lisinopril 10 mg tablet RxNorm: 060604 Take 1 Tablet(s) Oral QD 10/02/19 21 021 Inactive icosapent ethyl 1 gram capsule RxNorm: 8665398 Take 2 Capsule(s) (2 gm) Oral BID with meals 09/12/19 024 Inactive Okay to dispense one 2gm tab if you have that available. icosapent ethyl 1 gram capsule RxNorm: 5256871 Take 2 Capsule(s) Oral BID 09/12/19 21 021 Inactive Okay to dispense one 2gm tab if you have that available. amlodipine 10 mg tablet RxNorm: 081129 Take 1 Tablet(s) Oral QD 09/04/19 21 022 Inactive aspirin 81 mg tablet,delayed release RxNorm: 920032 Take 1 Tablet(s) Oral QD 09/04/19 021 Inactive Levemir FlexTouch U-100 Insulin 100 unit/mL (3 mL) subcutaneous pen RxNorm: 487215 Inject 150 Unit(s) Subcutaneous BID 09/04/19 21 022 Inactive venlafaxine ER 150 mg tablet,extended release 24 hr RxNorm: 603996 Take 1 Tablet(s) Oral QD 09/04/19 021 Inactive clotrimazole-betame thasone 1 %-0.05 % topical cream RxNorm: 172925 Apply to rash on red area on left abdomen/chest Topical BID 08/10/19 21 021 Inactive amlodipine 5 mg tablet RxNorm: 252199 Take 1 Tablet(s) Oral QD 07/31/19 21 021 Inactive cephalexin 500 mg tablet RxNorm: 743101 Take 1 Tablet(s) Oral BID BID - Twice Daily 07/31/19 21 021 Inactive Start 08/01/20 pantoprazole 40 mg tablet,delayed release RxNorm: 341223 Take 1 Tablet(s) Oral QAM every morning 07/08/19 21 022 Inactive senna 8.6 mg tablet RxNorm: 141196 Take 1 Tablet(s) Oral QD 07/08/19 21 022 Inactive carbamazepine 200 mg tablet RxNorm: 865645 Take 1 Tablet(s) Oral BID 07/08/19 21 022 Inactive clopidogrel 75 mg tablet RxNorm: 433286 Take 1 Tablet(s) Oral QD 07/08/19 21 021 Inactive Blood Glucose Test strips RxNorm: Use 1 Test Strip QID at PRN 07/08/19 21 Inactive E11.42 Novolog Flexpen U-100 Insulin aspart 100 unit/mL (3 mL) subcutaneous RxNorm: 2634011 Administer per sliding scale Milliliter(s) Subcutaneous TID 151-200: 10 u; 201-250: 20 u; 251-300: 30 u; 301-350: 40 u; 351-400: 50 u. 07/08/19 21 022 Inactive lisinopril 5 mg tablet RxNorm: 278513 Take 1 Tablet(s) Oral QD 07/08/19 Inactive Novolog Flexpen U-100 Insulin aspart 100 unit/mL (3 mL) subcutaneous RxNorm: 1536023 Inject 85 Unit(s) Subcutaneous TID 07/08/19 022 Inactive pravastatin 80 mg tablet RxNorm: 710907 Take 1 Tablet(s) Oral QHS every night at bedtime 07/08/19 023 Inactive clotrimazole 1 % topical cream RxNorm: 987282 Apply to bilateral groin areas Topical BID 07/08/19 022 Inactive metoprolol succinate ER 200 mg tablet,extended release 24 hr RxNorm: 333204 Take 1 Tablet(s) Oral QD 07/08/19 21 021 Inactive Vitamin D3 25 mcg (1,000 unit) tablet RxNorm: 500493 Take 1 Tablet(s) Oral QD 07/08/19 21 021 Inactive isosorbide dinitrate 30 mg tablet RxNorm: 783098 Take 1 Tablet(s) Oral QD 07/08/19 21 021 Inactive Levemir FlexTouch U-100 Insulin 100 unit/mL (3 mL) subcutaneous pen RxNorm: 446472 Inject 140 Unit(s) Subcutaneous BID 07/08/19 21 021 Inactive torsemide 20 mg tablet RxNorm: 355557 Take 1 Tablet(s) Oral QD 07/08/19 21 023 Inactive venlafaxine 75 mg tablet RxNorm: 830384 Take 1 Tablet(s) Oral QD 07/08/19 21 021 Inactive acetaminophen 500 mg tablet RxNorm: 512072 Take 1 Tablet(s) Oral TID as needed for headache 06/18/19 21 021 Inactive acetaminophen 500 mg tablet RxNorm: 782339 Take 1 Tablet(s) Oral TID as needed for headache 06/18/19 21 021 Inactive Lyrica 100 mg capsule RxNorm: 729676 Take 1 Capsule(s) Oral QHS every night at bedtime 06/11/19 21 021 Inactive Lyrica 50 mg capsule RxNorm: 039814 Take 1 Capsule(s) Oral QAM every morning 06/10/19 21 021 Inactive hydrocortisone 2.5 % topical cream RxNorm: 130090 Apply to bilateral groin creases Topical BID 05/15/20 20 021 Inactive clotrimazole 1 % topical cream RxNorm: 128221 Apply to bilateral groin areas Topical BID 05/15/20 20 021 Inactive Lyrica 50 mg capsule RxNorm: 422435 Take 1 Capsule(s) Oral QAM every morning 05/14/20 20 020 Inactive Lyrica 100 mg capsule RxNorm: 886414 Take 1 Capsule(s) Oral QHS every night [...] Inactive Nystop 100,000 unit/gram topical powder RxNorm: 734659 Apply to abd folds, under breasts and L side of groin Topical BID x 14 days, then BID PRN 04/08/20 20 Inactive dx: yeast dermatitis Lyrica 100 mg capsule RxNorm: 803463 Take 1 Capsule(s) Oral QHS every night at bedtime 03/13/20 20 Inactive Lyrica 50 mg capsule RxNorm: 529727 Take 1 Capsule(s) Oral QAM every morning 03/13/20 20 Inactive ketoconazole 2 % shampoo RxNorm: 395367 Apply Topical two times a week with showers 03/11/20 20 Inactive cholecalciferol (vitamin D3) 50 mcg (2,000 unit) tablet RxNorm: 980898 Take 1 Tablet(s) Oral QD 03/11/20 20 021 Inactive Zetia 10 mg tablet RxNorm: 631409 Take 1 Tablet(s) Oral QD 03/07/20 20 021 Inactive Zetia 10 mg tablet RxNorm: 098184 Take 1 Tablet(s) Oral QD 03/07/20 20 Inactive Lyrica 50 mg capsule RxNorm: 650200 Take 1 Capsule(s) Oral QAM every morning 02/15/20 20 Inactive Lyrica 100 mg capsule RxNorm: 783150 Take 1 Capsule(s) Oral QHS every night at bedtime 02/15/20 20 Inactive Lyrica 100 mg capsule RxNorm: 674894 Take 1 Capsule(s) Oral QHS every night at bedtime 02/15/20 20 Inactive Lyrica 50 mg capsule RxNorm: 297738 Take 1 Capsule(s) Oral QAM every morning 02/15/20 20 Inactive metoprolol succinate ER 200 mg tablet,extended release 24 hr RxNorm: 467303 Take 1 Tablet(s) Oral QD 08/12/19 23 Active loperamide 2 mg capsule RxNorm: 160053 Take 1 Capsule(s) Oral QID as needed 06/12/19 22 Active hydralazine 50 mg tablet RxNorm: 482824 Take 1 Tablet(s) Oral QID 08/12/19 23 Active Soft Touch Lancets RxNorm: miscellaneous 03/04/20 24 Active venlafaxine ER 75 mg capsule,extended release 24 hr RxNorm: 260954 Take 3 Capsule(s) Oral QD 06/12/19 22 023 Inactive polyethylene glycol 3350 17 gram/dose oral powder RxNorm: 967770 Take 17=1 capful Gram(s) Oral BID as needed mix with 4-8oz of liquid 06/12/19 22 024 Inactive icosapent ethyl 1 gram capsule RxNorm: 0481486 Take 2 Capsule(s) (2 gm) Oral BID with meals 10/07/19 23 023 Inactive Okay to dispense one 2gm tab if you have that available. Levemir FlexTouch U-100 Insulin 100 unit/mL (3 mL) subcutaneous pen RxNorm: 687672 Inject 80 Unit(s) Subcutaneous BID 07/14/19 23 023 Inactive Novolog Flexpen U-100 Insulin aspart 100 unit/mL (3 mL) subcutaneous RxNorm: 5225207 Insert 30 Unit(s) Subcutaneous TID with meals [...] Codes Status Date Referral: [facility] WPtel: [phone] , [address] [id number] Referral Records Received 09/21/2022 Referral: [facility] WPtel: [phone] [id number] [place] Referral Completed 05/28/2021 Referral: General Cardiology [...] CKD stage 3. He moved into [facility] in 12/2019 but after a hospitalization 05/2021 he moved to the [facility] to have closer nursing attention. Sister Jyotsna involved in his care cell# [phone] Guardian: Giulia (tapan met in person 09/01/21), [...] Martines note from 11.08.2023 at [facility] (follow up 6 months)Colon & Rectal Surgery visit scheduled for 03/08/24 with Matilde Pérez PA-C. 02/08/2024
--- OUTSIDE RECORDS SUMMARY | 2024-03-06 07:33 | XMS_ITS | CCD ---
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 Endoscopy Technician Name Role Phone Arpit MCKINLEY-C, [place] Primary Care Provider Leona vailable [place] EMBROIDERER-C, [facility] Chronic Care Management U navailable Summary Purpose DataExchange Insurance Providers Payer name Policy type / Coverage type Covered alliance party ID Effective Begin Date Effective End Date [place] [id number] Unknown Unknown [place] Part B [id number] Unknown Unknown Family history Sister Brittany Suggs Diagnosis Age At Onset No Family Disease Entered N/A Runs in the family Diagnosis Age At Onset No Known Diseases N/A Sister Blanka Mcduffie Diagnosis Age At Onset No Family Disease Entered N/A Social History Social History Element Codes Description Effec tive Dates Tobacco history SNOMED CT: 062118290 Never smoker 01/16 Sexually Active? Unknown No [...] [facility] 09/03/[address]: 754832448 No Alcohol Consum ption 09/02/2020 Allergies, Adverse Reactions, Alerts Substance Reaction Codes Entered Date Inactivated Date Status * NO KNOWN FOOD ALLERGIES Unknown 07/13/2023 No Inactive Date Active LISINOPRIL RxNorm: 89991 02/12/2020 No Inactive Da te Active Metformin [...] E78. 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 Other retirement (current) dr ug therapy ICD-10: [...] 09/07/2023 Resolved Coronary artery disease invo lving [place] coronary artery of [place] heart, angina presence unspecified ICD-10: I25.10 ICD-9: [...] Diabetes mellitus Type 2 Unknown 02/12/2020 Act annei Anemia in chronic kidney disease ICD-10: D63.1 020 Resolved Hyperlipidemia, unspecified ICD-10: E78.5 02/12/2020 Resolved Medications Medication Codes Instructions Start Date Stop Date Status Fill Instructions Accu-Chek Guide test strips RxNorm: Use 1 Test Strip QID And PRN-- also dispense Soft Touch Lancets (QID and PRN) to be use with new Accu [place] meter 03/04/20 Active ok to substitute with any covered alternative test strip Accu-Chek Guide Glucose Meter RxNorm: Use 1 Miscellaneous UD as directed Use glucose meter to monitor blood glucose 4 times daily and as needed. Dx:E11.42 03/04/20 Inactive nystatin 100,000 unit/gram topical powder RxNorm: 558679 Apply 1 Application Topical BID as needed [...] (Concentrated) Insulin 500 unit/mL subcutaneous soln RxNorm: 902298 Inject 100 Unit(s) Subcutaneous TID 02/17/20 24 025 Active Basaglar KwikPen U-100 Insulin 100 unit/mL (3 mL) subcutaneous RxNorm: 8227442 Inject 30 Unit(s) Subcutaneous BID 02/10/20 24 024 Active Please dispense one month supply. Humulin R U-500 (Concentrated) Insulin 500 unit/mL subcutaneous soln RxNorm: 064860 Inject 100 Unit(s) Subcutaneous TID 02/10/20 24 024 Inactive pregabalin 100 mg capsule RxNorm: 966281 Take 1 Capsule(s) Oral QAM every morning 02/07/20 24 024 Active isosorbide mononitrate ER 60 mg tablet,extended release 24 hr RxNorm: 347273 Take 1 Tablet(s) Oral QD 02/01/20 24 025 Active aripiprazole 15 mg tablet RxNorm: 384679 Take 1/2 Tablet(s) Oral QD 02/01/20 24 025 Active torsemide 20 mg tablet RxNorm: 002786 1 TAB ORALLY DAILY (DX: EDEMA) 01/27/20 No Stop Date Active potassium chloride ER 20 mEq tablet,extended release(part/cryst) RxNorm: 3440838 2 TABS (40MEQ) ORALLY TWICE DAILY (DX: HYPOKALEMIA) 01/27/20 No Stop Date Active cephalexin 500 mg capsule RxNorm: 036932 Take 1 Capsule(s) Oral QID 12/17/19 24 Inactive cephalexin 500 mg capsule RxNorm: 819171 Take 1 Capsule(s) Oral QID 12/17/19 24 Inactive acetaminophen 500 mg tablet RxNorm: 329919 (MAX APAP:4GM/24HR) Take 1 Tablet(s) Oral TID as needed for pain 12/10/19 24 Active torsemide 20 mg tablet RxNorm: 937843 Take 1 Tablet(s) Oral QD 10/26/19 24 024 Inactive potassium chloride ER 20 mEq tablet,extended release RxNorm: 19800522 Take 2 Tablet(s) Oral BID 10/26/19 24 Active torsemide 20 mg tablet RxNorm: 411302 Take 1 Tablet(s) Oral QD 10/26/19 24 Inactive potassium chloride ER 20 mEq tablet,extended release RxNorm: 19800522 Take 2 Tablet(s) Oral BID 10/26/19 24 Inactive Artificial Tears (PF) 0.1 %-0.3 % drops in a dropperette RxNorm: 037521 Apply 1-2 Drop(s) Both eyes BID as needed 09/28/19 24 Active erythromycin 5 mg/gram (0.5 %) eye ointment RxNorm: 393675 Apply 1 Application Both eyes QHS every night at bedtime Instill ~1 cm ribbon into affected eye 09/28/19 24 Inactive Artificial Tears (PF) 0.1 %-0.3 % drops in a dropperette RxNorm: 873737 Apply 1-2 Drop(s) Both eyes BID as needed 09/28/19 24 Inactive erythromycin 5 mg/gram (0.5 %) eye ointment RxNorm: 470417 Apply 1 Application Both eyes QHS every night at bedtime Instill ~1 cm ribbon into affected eye 09/28/19 24 Inactive acetaminophen 500 mg tablet RxNorm: 398042 (MAX APAP:4GM/24HR) Take 1 Tablet(s) Oral TID as needed for pain 09/24/19 24 05/10/2 024 Inactive carvedilol 25 mg tablet RxNorm: 453893 Take 1 Tablet(s) Oral QD 09/08/19 24 No Stop Date Active pregabalin 100 mg capsule RxNorm: 283839 Take 1 Capsule(s) Oral QAM every morning 09/07/19 24 024 Inactive rosuvastatin 40 mg tablet RxNorm: 540527 Take 1 Tablet(s) Oral QPM every evening 07/13/19 24 No Stop Date Active ezetimibe 10 mg tablet RxNorm: 631038 Take 1 Tablet(s) Oral QD 07/13/19 24 No Stop Date Active bisacodyl 10 mg rectal suppository RxNorm: 207087 Insert 1 Suppository Rectal QD as needed 07/13/19 24 No Stop Date Active polyethylene glycol 3350 17 gram/dose oral powder RxNorm: 135720 Take 17 Gram(s) Oral BID as needed mix in 4-8ox water 07/13/19 24 No Stop Date Active ketoconazole 2 % shampoo RxNorm: 510700 Apply 1 Application Topical UD as directed 07/13/19 24 No Stop Date Active Ozempic 1 mg/dose (4 mg/3 mL) subcutaneous pen injector RxNorm: 4245418 Inject 1 Milligram(s) Subcutaneous QW once a week 07/13/19 24 No Stop Date Active Guaifenesin AC 10 mg-100 mg/5 mL oral liquid RxNorm: 370016 Take 10 Milliliter(s) Oral Q4H every four hours as needed 07/13/19 24 No Stop Date Active ammonium lactate 12 % topical cream RxNorm: 083915 Apply 1 Application Topical BID 07/13/19 24 No Stop Date Active hydrocortisone 2.5 % topical cream RxNorm: 128301 Apply 1 Application Topical BID as needed 07/13/19 24 No Stop Date Active rosuvastatin 20 mg sprinkle capsule RxNorm: 0903970 Take 1 Capsule(s) Oral QD 07/13/19 24 No Stop Date Active Vascepa 1 gram capsule RxNorm: 5438217 Take 2 Capsule(s) Oral BID 07/13/19 24 No Stop Date Active venlafaxine ER 75 mg capsule,extended release 24 hr RxNorm: 904569 Take 3 Capsule(s) Oral QD 07/13/19 24 No Stop Date Active aripiprazole 15 mg tablet RxNorm: 787694 Take 1/2 Tablet(s) Oral QD 07/13/19 24 024 Inactive isosorbide mononitrate ER 60 mg tablet,extended release 24 hr RxNorm: 181828 Take 1 Tablet(s) Oral QD 07/13/19 24 024 Inactive Basaglar KwikPen U-100 Insulin 100 unit/mL (3 mL) subcutaneous RxNorm: 4468989 Inject 30U SubQ twice daily 07/07/19 24 024 Inactive Please dispense one month supply. Basaglar KwikPen U-100 Insulin 100 unit/mL (3 mL) subcutaneous RxNorm: 6854281 Inject 30U SubQ twice daily 07/07/19 24 024 Inactive Please dispense one month supply. pregabalin 150 mg capsule RxNorm: 618890 Take 1 Capsule(s) Oral QHS every night at bedtime 07/05/19 24 024 Inactive pregabalin 150 mg capsule RxNorm: 157327 Take 1 Capsule(s) Oral QHS every night at bedtime 07/05/19 24 024 Inactive polyethylene glycol 3350 17 gram/dose oral powder RxNorm: 614770 Take 1 Packet Oral QD as needed (1 packet = 17g) mix with 4-8oz of liquid 06/15/19 24 024 Inactive bisacodyl 10 mg rectal suppository RxNorm: 004363 Insert one suppository per rectum once daily as needed for constipation 06/15/19 24 024 Inactive bisacodyl 10 mg rectal suppository RxNorm: 193002 Insert one suppository per rectum once daily as needed for constipation 06/15/19 24 024 Inactive pregabalin 100 mg capsule RxNorm: 081557 Take 1 Capsule(s) Oral QAM every morning 04/27/20 23 024 Inactive Levemir FlexPen 100 unit/mL (3 mL) solution subcutaneous insulin pen RxNorm: 883252 Inject 30 Unit(s) Subcutaneous BID 04/27/20 23 024 Inactive rosuvastatin 40 mg tablet RxNorm: 697832 Take 1 Tablet(s) Oral QPM every evening 04/16/20 23 024 Inactive D/C rosuvastatin 20mg venlafaxine ER 75 mg capsule,extended release 24 hr RxNorm: 489108 Take 3 Capsule(s) Oral QD 04/14/20 023 Inactive pregabalin 100 mg capsule RxNorm: 150954 Take 1 Capsule(s) Oral QAM every morning [...] strip clotrimazole 1 % topical cream RxNorm: 079248 Take apply topically to abdominal folds twice daily for 14 days 03/12/20 024 Inactive Ozempic 1 mg/dose (4 mg/3 mL) subcutaneous pen injector RxNorm: 3471033 Inject 1 Milligram(s) Subcutaneous QW once a week 03/11/20 023 Inactive rosuvastatin 20 mg tablet RxNorm: 343320 Take 1 Tablet(s) Oral QD 02/26/20 23 023 Inactive d/c pravastatin 80mg Ozempic 1 mg/dose (4 mg/3 mL) subcutaneous pen injector RxNorm: 5583298 Inject 1 Milligram(s) Subcutaneous QW once a week 02/20/20 23 023 Inactive pregabalin 150 mg capsule RxNorm: 430511 Take 1 Capsule(s) Oral HS at bed time 02/19/20 23 023 Inactive pregabalin 100 mg capsule RxNorm: 776476 Take 1 Capsule(s) Oral QAM every morning 02/18/20 23 023 Inactive venlafaxine ER 75 mg capsule,extended release 24 hr RxNorm: 489849 Take 3 Capsule(s) Oral QD 02/04/20 23 023 Inactive FreeStyle Chema 2 Sensor kit RxNorm: use as directed 02/04/20 23 023 Inactive FreeStyle Chema 2 Sensor kit RxNorm: use as directed 02/04/20 23 024 Inactive fluconazole 150 mg tablet RxNorm: 442272 Take 1 Tablet(s) Oral on day 3 and on day 6 02/03/20 024 Inactive chlorthalidone 25 mg tablet RxNorm: 152448 Take 1 Tablet(s) Oral QAM every morning 02/03/20 No Stop Date Active venlafaxine ER 150 mg capsule,extended release 24 hr RxNorm: 051754 Take 1 Capsule(s) Oral QD 02/03/20 023 Inactive acetaminophen 500 mg tablet RxNorm: 269191 1 TABLET ORALLY 3 TIMES DAILY (MAX APAP:4GM/24HR) 12/15/19 23 023 Inactive clotrimazole 1 % topical cream RxNorm: 661317 apply 1g topically to top of feet and in between toes BID 12/09/19 23 023 Inactive potassium chloride ER 20 mEq tablet,extended release RxNorm: 368916 Take 1 Tablet(s) Oral BID 12/09/19 23 024 Inactive d/c 20mEq once daily (sent from hospital) nystatin 100,000 unit/gram topical powder RxNorm: 459808 APPLY TO AFFECTED AREAS TOPICALLY 2 TIMES DAILY 11/21/19 23 023 Inactive Nystop 100,000 unit/gram topical powder RxNorm: 035427 Apply to abd folds, under breasts and L side of groin Topical BID x 14 days, then BID PRN 11/20/19 23 023 Inactive dx: yeast dermatitis [place] Ultra Strength 4 %-30 %-10 % topical cream RxNorm: 069057 Apply 1 Gram(s) Topical QID PRN to feet and legs for neuropathic pain 11/11/19 23 024 Inactive clotrimazole 1 % topical cream RxNorm: 940875 Apply 1/2 Gram(s) Topical BID Apply to affected areas of groin, periarea, and abdominal topically 2 times daily 11/10/19 23 023 Inactive hydrocortisone 2.5 % topical cream RxNorm: 197321 Apply 1/2 Gram(s) Topical BID as needed 11/10/19 024 Inactive Levemir FlexPen 100 unit/mL (3 mL) solution subcutaneous insulin pen RxNorm: 645596 Inject 30 Unit(s) Subcutaneous BID 10/07/19 023 Inactive Humulin R U-500 (Concentrated) Insulin 500 unit/mL subcutaneous soln RxNorm: 563827 Inject 100 Unit(s) Subcutaneous TID 10/07/19 024 Inactive Ozempic 0.25 mg or 0.5 mg (2 mg/3 mL) subcutaneous pen injector RxNorm: 5328441 Inject 1/2 Milligram(s) Subcutaneous QW once a week 10/07/19 024 Inactive aripiprazole 15 mg tablet RxNorm: 335843 1/2 TAB (7.5MG) ORALLY DAILY (DX:MAJOR DEPRESSIVE DISORDER) 09/23/19 23 023 Inactive Accu-Chek Guide test strips RxNorm: Use 1 Test Strip QID 09/15/19 23 023 Inactive ok to substitute with any covered alternative test strip Lancets,Thin 28 gauge RxNorm: Use 1 as directed QID 09/15/19 23 023 Inactive torsemide 20 mg tablet RxNorm: 757306 Take 1 Tablet(s) Oral BID 09/09/19 024 Inactive d/c once daily dosing carvedilol 25 mg tablet RxNorm: 458282 Take 1 Tablet(s) Oral QD 08/25/19 024 Inactive pregabalin 150 mg capsule RxNorm: 641531 1 Capsule(s) Oral HS at bed time 08/18/19 023 Inactive pregabalin 100 mg capsule RxNorm: 811888 1 Capsule(s) Oral QAM every morning 08/18/19 023 Inactive carvedilol 25 mg tablet RxNorm: 388383 1 Tablet(s) Oral QD 07/28/19 23 023 Inactive lisinopril 20 mg tablet RxNorm: 713519 Give 1 Tablet(s) Oral QD 07/28/19 23 023 Inactive Lyrica 150 mg capsule RxNorm: 789332 Take 1 Capsule(s) Oral QHS every night at bedtime 07/19/19 23 023 Inactive d/c 100mg dose Diflucan 150 mg tablet RxNorm: 337636 Take 1 Tablet(s) Oral QD repeat on day 3 and 6 07/19/19 23 023 Inactive pregabalin 100 mg capsule RxNorm: 691404 Take 1 Capsule(s) Oral QAM every morning 07/19/19 23 023 Inactive gatifloxacin 0.5 % eye drops RxNorm: 633802 Instill 1 Drop(s) as directed TID Instill 1 drop in to affected eye(s) starting 1 day prior to surgery and continue until gone (do not exceed 4 weeks). 07/13/19 23 023 Inactive carvedilol 25 mg tablet RxNorm: 068222 2 Tablet(s) Oral BID 07/13/19 23 023 Inactive Humulin R Regular U-100 Insulin 100 unit/mL injection solution RxNorm: 622072 85 Unit(s) Injection TID 07/13/19 23 023 Inactive ketorolac 0.5 % eye drops RxNorm: 463759 Instill 1 Drop(s) as directed QID Instill 1 drop into affected eye(s) 4 times daily starting 1 day prior to surgery and continue until gone (do not exceed 4 weeks). 07/13/19 23 023 Inactive Diflucan 150 mg tablet RxNorm: 200294 Take 1 Tablet(s) Oral QD repeat on day 3 and 6 06/30/19 23 023 Inactive Accu-Chek Guide test strips RxNorm: Use 1 Test Strip QID Use 1 test strip to monitor blood glucose 4 times daily and as needed. Dx:E11.42. 06/23/19 23 023 Inactive ok to substitute with any covered alternative test strip dextromethorphan-gu aifenesin 10 mg-100 mg/5 mL oral liquid RxNorm: 523223 Take 10 Milliliter(s) Oral every 4 hours as needed for cough 06/19/19 023 Inactive dextromethorphan-gu aifenesin 10 mg-100 mg/5 mL oral liquid RxNorm: 009781 Take 10 Milliliter(s) Oral every 4 hours as needed for cough 06/19/19 023 Inactive Lyrica 150 mg capsule RxNorm: 192160 Take 1 Capsule(s) Oral QHS every night at bedtime 06/18/19 023 Inactive d/c 100mg dose aripiprazole 15 mg tablet RxNorm: 896160 05/18 TAB (7.5MG) ORALLY DAILY (DX:MAJOR DEPRESSIVE DISORDER) 06/05/19 023 Inactive pregabalin 100 mg capsule RxNorm: 145028 1 Capsule(s) Oral QAM every morning 06/02/19 023 Inactive Banophen 50 mg capsule RxNorm: 7290496 Take 1 Capsule(s) Oral Q6H every 6 hours as needed 05/19/19 23 No Stop Date Active Novolog Flexpen U-100 Insulin aspart 100 unit/mL (3 mL) subcutaneous RxNorm: 8891063 Inject 10 Unit(s) Subcutaneous QHS every night at bedtime with nighttime snack 04/08/20 022 Inactive Novolog Flexpen U-100 Insulin aspart 100 unit/mL (3 mL) subcutaneous RxNorm: 3650497 Inject 42 Unit(s) Subcutaneous TID in addition to sliding scale 04/08/20 022 Inactive d/c 36u albuterol sulfate HFA 90 mcg/actuation aerosol inhaler RxNorm: 0978846 Take 2 Puff(s) Inhalation Q4H every four hours as needed as needed for SOB, cough, or wheezing 04/07/20 030 Active Banophen 50 mg capsule RxNorm: 8792609 Take 1 Capsule(s) Oral Q6H every 6 hours as needed 04/06/20 023 Inactive diphenhydramine 50 mg tablet RxNorm: 5162575 Take 1 Tablet(s) Oral Q6H every 6 hours as needed 04/06/20 22 022 Inactive diphenhydramine 50 mg tablet RxNorm: 2758269 1 Tablet(s) Oral Q6H every 6 hours as needed 04/06/20 22 022 Inactive Abilify 15 mg tablet RxNorm: 558510 1/2 Tablet(s) Oral QD 03/10/20 22 023 Inactive Shingrix (PF) 50 mcg/0.5 mL intramuscular suspension, kit RxNorm: 6571456 Administer 1/2 Milliliter(s) Intramuscular QD one time shingrix step 2 ( step 1 given 11/04/21) WITH needle - Nursing please administer upon arrival and once administered post a bridge message with 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, 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, expiration date, and lot# so we can update [facility] 02/18/20 22 022 Inactive dispense with needle Shingrix (PF) 50 mcg/0.5 mL intramuscular suspension, kit RxNorm: 7836220 Administer 1/2 Milliliter(s) Intramuscular QD one time shingrix step 2 ( step 1 given 11/04/21) WITH needle - Nursing please administer upon arrival and once administered post a bridge message with date of administration, 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, expiration date, and lot# so we can update [facility] 02/18/20 22 022 Inactive dispense with needle polyethylene glycol 3350 17 gram/dose oral powder RxNorm: 617180 Take 17=1 capful Gram(s) Oral QD mix with 4-8oz of liquid 01/08/20 22 023 Inactive take this in addition to BID prn order Lyrica 100 mg capsule RxNorm: 050296 Take 1 Capsule(s) Oral QAM every morning 01/08/20 22 022 Inactive d/c 50mg dose acetaminophen 500 mg tablet RxNorm: 315024 Take 1 Tablet(s) Oral TID 01/08/20 22 022 Inactive d/c PRN order Lyrica 150 mg capsule RxNorm: 350901 Take 1 Capsule(s) Oral QHS every night at bedtime 01/08/20 22 023 Inactive d/c 100mg dose Abilify 5 mg tablet RxNorm: 582576 Take 1 Tablet(s) Oral QD take 1 tab po QD #30 refill 5 dx: MDD 12/12/19 22 022 Inactive Abilify 5 mg tablet RxNorm: 382423 Take 1 Tablet(s) Oral QD take 1 tab po QD #30 refill 5 dx: MDD 12/12/19 22 022 Inactive Novolog Flexpen U-100 Insulin aspart 100 unit/mL (3 mL) subcutaneous RxNorm: 7631955 Inject 42 Unit(s) Subcutaneous TID in addition to sliding scale 12/10/19 22 Inactive d/c 36u chlorthalidone 25 mg tablet RxNorm: 190112 Take 1 Tablet(s) Oral QAM every morning 12/10/19 22 023 Inactive pregabalin 50 mg capsule RxNorm: 076022 Take 1 Capsule(s) Oral QAM every morning 11/12/19 22 022 Inactive tetanus-diphtheria toxoids-Td 2 Lf unit-2 Lf unit/0.5 mL IM suspension RxNorm: 139 Take 0.5 Miscellaneous Intramuscular 11/12/19 22 022 Inactive need tdap - nursing to administer upon arrival pregabalin 50 mg capsule RxNorm: 932815 Take 1 Capsule(s) Oral QAM every morning 10/16/19 22 022 Inactive pregabalin 50 mg capsule RxNorm: 843902 Take 1 Capsule(s) Oral QAM every morning 10/16/19 22 022 Inactive pregabalin 50 mg capsule RxNorm: 279791 1 Capsule(s) Oral QAM every morning 10/15/19 22 022 Inactive Shingrix (PF) 50 mcg/0.5 mL intramuscular suspension, kit RxNorm: 3419166 Administer 1/2 Milliliter(s) Intramuscular one time Nursing please administer upon arrival and once administered post a bridge message with date of administration, 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, expiration date, and lot# so we can update [facility]. 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 10/09/19 22 Inactive shingrix step 1 cholecalciferol (vitamin D3) 1,250 mcg (50,000 unit) capsule RxNorm: 489494 Take 1 Capsule(s) Oral QW once a [...] aspart 100 unit/mL (3 mL) subcutaneous RxNorm: 9775264 Inject 10 Unit(s) Subcutaneous QHS every night at bedtime with nighttime snack 10/08/19 22 Inactive Shingrix (PF) 50 mcg/0.5 mL intramuscular suspension, kit RxNorm: 4061060 ADMINISTER 2-DOSE SERIES PER CDC GUIDELINES 10/08/19 22 Active Shingrix (PF) 50 mcg/0.5 mL intramuscular suspension, kit RxNorm: 1344510 ADMINISTER 2-DOSE SERIES PER CDC GUIDELINES 10/08/19 22 Inactive Novolog Flexpen U-100 Insulin aspart 100 unit/mL (3 mL) subcutaneous RxNorm: 1308215 Inject 36 Unit(s) Subcutaneous TID in addition to sliding scale 10/08/19 22 Inactive Novofine Autocover 30 gauge x 1/3 needle RxNorm: Use 1 Miscellaneous UD as directed Use 1 needle as directed to administer insulin 5 times a day Dx:E11.42. 10/03/19 22 Inactive ok to substitute with any covered alternative pen needle benzoyl peroxide 10 % topical cleanser RxNorm: 042816 Apply 1 Application Topical QD apply to face, wash rinse and dry once daily (may change to QOD if drying) 08/19/19 22 022 Inactive (%covered by insurance) #60ml refill 11 dx: acne benzoyl peroxide 10 % topical cleanser RxNorm: 637261 Apply 1 Application Topical QD apply to face, wash rinse and dry once daily (may change to QOD if drying) 08/19/19 22 022 Inactive (%covered by insurance) #60ml refill 11 dx: acne benzoyl peroxide 10 % topical cleanser RxNorm: 206265 Apply 1 Application Topical QD apply to face, wash rinse and dry once daily (may change to QOD if drying) 08/19/19 22 022 Inactive (%covered by insurance) #60ml refill 11 dx: acne Lyrica 50 mg capsule RxNorm: 242083 Take 1 Capsule(s) Oral QAM every morning Take 1 capsule by mouth once daily 08/19/19 22 022 Inactive benzoyl peroxide 10 % topical cleanser RxNorm: 074865 Apply 1 Application Topical QD apply to face, wash rinse and dry once daily (may change to QOD if drying) 08/19/19 022 Inactive (%covered by insurance) #60ml refill 11 dx: acne Lyrica 100 mg capsule RxNorm: 085655 Take 1 Capsule(s) Oral QHS every night at bedtime Take 1 capsule by mouth once daily at bedtime 08/19/19 22 022 Inactive Lyrica 100 mg capsule RxNorm: 008735 Take 1 Capsule(s) Oral QHS every night at bedtime Take 1 capsule by mouth once daily at bedtime 08/16/19 022 Inactive Lyrica 50 mg capsule RxNorm: 749339 Take 1 Capsule(s) Oral QAM every morning Take 1 capsule by mouth once daily 08/16/19 022 Inactive Levemir FlexTouch U-100 Insulin 100 unit/mL (3 mL) subcutaneous pen RxNorm: 337684 Inject 86 Unit(s) Subcutaneous BID 08/05/19 22 022 Inactive d/c 83units BID Lyrica 100 mg capsule RxNorm: 454945 Take 1 Capsule(s) Oral QHS every night at bedtime Take 1 capsule by mouth once daily at bedtime 07/14/19 22 Inactive Lyrica 50 mg capsule RxNorm: 958362 Take 1 Capsule(s) Oral QAM every morning Take 1 capsule by mouth once daily 07/14/19 22 Inactive Levemir FlexTouch U-100 Insulin 100 unit/mL (3 mL) subcutaneous pen RxNorm: 095735 Inject 83 Unit(s) Subcutaneous BID 07/08/19 22 [...] test strip hydralazine 50 mg tablet RxNorm: 688459 Take 1 Tablet(s) Oral QID 05/05/20 21 022 Inactive venlafaxine ER 225 mg tablet,extended release 24 hr RxNorm: 263936 Take 1 Tablet(s) Oral QD 05/05/20 21 021 Inactive venlafaxine ER 225 mg tablet,extended release 24 hr RxNorm: 541962 Take 1 Tablet(s) Oral QD 05/05/20 022 Inactive isosorbide mononitrate ER 30 mg tablet,extended release 24 hr RxNorm: 967619 Take 1 Tablet(s) Oral QD 05/05/20 024 Inactive hydralazine 50 mg tablet RxNorm: 214422 Take 1 Tablet(s) Oral QID 05/05/20 Inactive aspirin 81 mg tablet,delayed release RxNorm: 081399 Take 1 Tablet(s) Oral QD 03/31/20 022 Inactive Vitamin D2 1,250 mcg (50,000 unit) capsule RxNorm: 3042626 Take 1 Capsule(s) Oral QW once a week x 12 weeks 03/31/20 022 Inactive Vitamin D2 1,250 mcg (50,000 unit) capsule RxNorm: 8401586 Take 1 Capsule(s) Oral QW once a week 03/31/20 021 Inactive Zetia 10 mg tablet RxNorm: 493356 Take 1 Tablet(s) Oral QD 03/31/20 024 Inactive Zetia 10 mg tablet RxNorm: 754006 Take 1 Tablet(s) Oral QD 03/31/20 021 Inactive hydralazine 25 mg tablet RxNorm: 055750 Take 1 Tablet(s) Oral QID 03/31/20 021 Inactive hydralazine 25 mg tablet RxNorm: 711970 Take 1 Tablet(s) Oral QID 03/31/20 021 Inactive hydralazine 10 mg tablet RxNorm: 752284 Take 1 Tablet(s) Oral QID 03/03/20 021 Inactive cephalexin 500 mg tablet RxNorm: 267006 Take 1 Tablet(s) Oral QID 02/27/20 21 021 Inactive cephalexin 500 mg tablet RxNorm: 205383 Take 1 Tablet(s) Oral QID 02/27/20 021 Inactive lisinopril 40 mg tablet RxNorm: 943043 Take 1 Tablet(s) Oral QD 02/11/20 023 Inactive Eliquis 5 mg tablet RxNorm: 5473374 Take 1 Tablet(s) Oral BID 01/05/20 21 022 Inactive Eliquis 5 mg tablet RxNorm: 8282185 Take 2 Tablet(s) Oral QD 01/01/20 21 021 Inactive Lyrica 50 mg capsule RxNorm: 484176 Take 1 Capsule(s) Oral QAM every morning 12/24/19 021 Inactive Lyrica 100 mg capsule RxNorm: 156076 Take 1 Capsule(s) Oral QHS every night at bedtime 12/24/19 021 Inactive clotrimazole 1 % topical cream RxNorm: 260952 Apply to right foot and toes Topical BID 12/04/19 21 023 Inactive metoprolol succinate ER 200 mg tablet,extended release 24 hr RxNorm: 658908 Take 1 Tablet(s) Oral QD 12/04/19 21 023 Inactive ciprofloxacin 500 mg tablet RxNorm: 967468 Take 1 Tablet(s) Oral QD 11/30/19 021 Inactive DX ofloxacin otic drops Accu-Chek Guide test strips RxNorm: USE 1 TO CHECK GLUCOSE 4 TIMES DAILY AND NEEDED 11/15/19 21 023 Inactive Blood Glucose Test strips RxNorm: Use 1 Test Strip QID at PRN 11/05/19 21 023 Inactive E11.42 lisinopril 30 mg tablet RxNorm: 970625 Take 1 Tablet(s) Oral QD 10/30/19 21 021 Inactive lisinopril 20 mg tablet RxNorm: 115247 Take 1 Tablet(s) Oral QD 10/23/19 21 021 Inactive lisinopril 20 mg tablet RxNorm: 666936 Take 1 Tablet(s) Oral QD 10/23/19 21 021 Inactive lisinopril 10 mg tablet RxNorm: 980534 Take 1 Tablet(s) Oral QD 10/02/19 21 021 Inactive icosapent ethyl 1 gram capsule RxNorm: 6709855 Take 2 Capsule(s) (2 gm) Oral BID with meals 09/12/19 024 Inactive Okay to dispense one 2gm tab if you have that available. icosapent ethyl 1 gram capsule RxNorm: 4869216 Take 2 Capsule(s) Oral BID 09/12/19 21 021 Inactive Okay to dispense one 2gm tab if you have that available. amlodipine 10 mg tablet RxNorm: 716088 Take 1 Tablet(s) Oral QD 09/04/19 022 Inactive aspirin 81 mg tablet,delayed release RxNorm: 802471 Take 1 Tablet(s) Oral QD 09/04/19 21 021 Inactive Levemir FlexTouch U-100 Insulin 100 unit/mL (3 mL) subcutaneous pen RxNorm: 559190 Inject 150 Unit(s) Subcutaneous BID 09/04/19 21 022 Inactive venlafaxine ER 150 mg tablet,extended release 24 hr RxNorm: 610011 Take 1 Tablet(s) Oral QD 09/04/19 021 Inactive clotrimazole-betame thasone 1 %-0.05 % topical cream RxNorm: 538083 Apply to rash on red area on left abdomen/chest Topical BID 08/10/19 21 021 Inactive amlodipine 5 mg tablet RxNorm: 938489 Take 1 Tablet(s) Oral QD 07/31/19 21 Inactive cephalexin 500 mg tablet RxNorm: 454024 Take 1 Tablet(s) Oral BID BID - Twice Daily 07/31/19 21 021 Inactive Start 08/01/20 pantoprazole 40 mg tablet,delayed release RxNorm: 627913 Take 1 Tablet(s) Oral QAM every morning 07/08/19 21 022 Inactive senna 8.6 mg tablet RxNorm: 263606 Take 1 Tablet(s) Oral QD 07/08/19 21 022 Inactive carbamazepine 200 mg tablet RxNorm: 013032 Take 1 Tablet(s) Oral BID 07/08/19 022 Inactive clopidogrel 75 mg tablet RxNorm: 440812 Take 1 Tablet(s) Oral QD 07/08/19 021 Inactive Blood Glucose Test strips RxNorm: Use 1 Test Strip QID at PRN 07/08/19 21 Inactive E11.42 Novolog Flexpen U-100 Insulin aspart 100 unit/mL (3 mL) subcutaneous RxNorm: 7459007 Administer per sliding scale Milliliter(s) Subcutaneous TID 151-200: 10 u; 201-250: 20 u; 251-300: 30 u; 301-350: 40 u; 351-400: 50 u. 07/08/19 022 Inactive lisinopril 5 mg tablet RxNorm: 771106 Take 1 Tablet(s) Oral QD 07/08/19 021 Inactive Novolog Flexpen U-100 Insulin aspart 100 unit/mL (3 mL) subcutaneous RxNorm: 9131946 Inject 85 Unit(s) Subcutaneous TID 07/08/19 022 Inactive pravastatin 80 mg tablet RxNorm: 344607 Take 1 Tablet(s) Oral QHS every night at bedtime 07/08/19 023 Inactive clotrimazole 1 % topical cream RxNorm: 484224 Apply to bilateral groin areas Topical BID 07/08/19 022 Inactive metoprolol succinate ER 200 mg tablet,extended release 24 hr RxNorm: 142675 Take 1 Tablet(s) Oral QD 07/08/19 021 Inactive Vitamin D3 25 mcg (1,000 unit) tablet RxNorm: 587569 Take 1 Tablet(s) Oral QD 07/08/19 21 021 Inactive isosorbide dinitrate 30 mg tablet RxNorm: 118136 Take 1 Tablet(s) Oral QD 07/08/19 21 021 Inactive Levemir FlexTouch U-100 Insulin 100 unit/mL (3 mL) subcutaneous pen RxNorm: 205114 Inject 140 Unit(s) Subcutaneous BID 07/08/19 21 021 Inactive torsemide 20 mg tablet RxNorm: 348971 Take 1 Tablet(s) Oral QD 07/08/19 21 023 Inactive venlafaxine 75 mg tablet RxNorm: 514437 Take 1 Tablet(s) Oral QD 07/08/19 021 Inactive acetaminophen 500 mg tablet RxNorm: 438621 Take 1 Tablet(s) Oral TID as needed for headache 06/18/19 021 Inactive acetaminophen 500 mg tablet RxNorm: 182536 Take 1 Tablet(s) Oral TID as needed for headache 06/18/19 021 Inactive Lyrica 100 mg capsule RxNorm: 115382 Take 1 Capsule(s) Oral QHS every night at bedtime 06/11/19 021 Inactive Lyrica 50 mg capsule RxNorm: 970669 Take 1 Capsule(s) Oral QAM every morning 06/10/19 21 021 Inactive hydrocortisone 2.5 % topical cream RxNorm: 801454 Apply to bilateral groin creases Topical BID 05/15/20 20 021 Inactive clotrimazole 1 % topical cream RxNorm: 936398 Apply to bilateral groin areas Topical BID 05/15/20 20 021 Inactive Lyrica 50 mg capsule RxNorm: 093822 Take 1 Capsule(s) Oral QAM every morning 05/14/20 20 020 Inactive Lyrica 100 mg capsule RxNorm: 117231 Take 1 Capsule(s) Oral QHS every night [...] Inactive Nystop 100,000 unit/gram topical powder RxNorm: 050947 Apply to abd folds, under breasts and L side of groin Topical BID x 14 days, then BID PRN 04/08/20 20 Inactive dx: yeast dermatitis Lyrica 100 mg capsule RxNorm: 680426 Take 1 Capsule(s) Oral QHS every night at bedtime 03/13/20 20 Inactive Lyrica 50 mg capsule RxNorm: 083524 Take 1 Capsule(s) Oral QAM every morning 03/13/20 20 Inactive ketoconazole 2 % shampoo RxNorm: 044173 Apply Topical two times a week with showers 03/11/20 20 Inactive cholecalciferol (vitamin D3) 50 mcg (2,000 unit) tablet RxNorm: 989748 Take 1 Tablet(s) Oral QD 03/11/20 20 021 Inactive Zetia 10 mg tablet RxNorm: 906964 Take 1 Tablet(s) Oral QD 03/07/20 20 021 Inactive Zetia 10 mg tablet RxNorm: 964090 Take 1 Tablet(s) Oral QD 03/07/20 20 Inactive Lyrica 50 mg capsule RxNorm: 271100 Take 1 Capsule(s) Oral QAM every morning 02/15/20 20 Inactive Lyrica 100 mg capsule RxNorm: 058314 Take 1 Capsule(s) Oral QHS every night at bedtime 02/15/20 20 Inactive Lyrica 100 mg capsule RxNorm: 741699 Take 1 Capsule(s) Oral QHS every night at bedtime 02/15/20 20 Inactive Lyrica 50 mg capsule RxNorm: 450887 Take 1 Capsule(s) Oral QAM every morning 02/15/20 20 020 Inactive metoprolol succinate ER 200 mg tablet,extended release 24 hr RxNorm: 256706 Take 1 Tablet(s) Oral QD 08/12/19 23 Active loperamide 2 mg capsule RxNorm: 867749 Take 1 Capsule(s) Oral QID as needed 06/12/19 22 Active hydralazine 50 mg tablet RxNorm: 553199 Take 1 Tablet(s) Oral QID 08/12/19 23 Active Soft Touch Lancets RxNorm: miscellaneous 03/04/20 24 Active venlafaxine ER 75 mg capsule,extended release 24 hr RxNorm: 731280 Take 3 Capsule(s) Oral QD 06/12/19 22 023 Inactive polyethylene glycol 3350 17 gram/dose oral powder RxNorm: 011854 Take 17=1 capful Gram(s) Oral BID as needed mix with 4-8oz of liquid 06/12/19 22 024 Inactive icosapent ethyl 1 gram capsule RxNorm: 1757803 Take 2 Capsule(s) (2 gm) Oral BID with meals 10/07/19 23 023 Inactive Okay to dispense one 2gm tab if you have that available. Levemir FlexTouch U-100 Insulin 100 unit/mL (3 mL) subcutaneous pen RxNorm: 480153 Inject 80 Unit(s) Subcutaneous BID 07/14/19 23 023 Inactive Novolog Flexpen U-100 Insulin aspart 100 unit/mL (3 mL) subcutaneous RxNorm: 8905414 Insert 30 Unit(s) Subcutaneous TID with meals [...] Referral: [facility] WPtel: [address], [address] [id number] Referral Records Received 09/21/2022 Referral: [facility] WPtel: [address] [id number] [place] Referral Completed 05/28/2021 Referral: General Cardiology [...] Sister Jyotsna involved in his care cell# [phone] Guardian: Don (tapan met in person 09/01/21), now has Lexii (same group as don)AWV 02.08.2024. Lab Schedule: *September (CBC with diff, [...] Martines note from 11.08.2023 at [facility] (follow up 6 months)Colon & Rectal Surgery visit scheduled for 03/08/24 with Matilde Pérez PA-C. 02/08/2024
--- OUTSIDE RECORDS SUMMARY | 2024-03-09 01:40 | XMS_ITS | CCD ---
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 Software Engineering Supervisor Name Role Phone Arpit MCKINLEY-C, [facility] Primary Care Provider Leona vailable Gregory LEASE ADMINISTRATOR-C, [facility] Chronic [facility] Management U navailable Summary Purpose DataExchange Insurance Providers Payer name Policy type / Coverage type Covered republican ID Effective Begin Date Effective End Date Medicare [place] Medicare Part B [id number] Unknown Unknown Medicaid [place] Medicare Part B [id number] Unknown Unknown Family history Sister Brittany Suggs Diagnosis Age At Onset No Family Disease Entered N/A Runs in the family Diagnosis Age At Onset No Known Diseases N/A Sister Blanka Mcduffie Diagnosis Age At Onset No Family Disease Entered N/A Social History Social History Element Codes Description Effec tive Dates Tobacco history SNOMED CT: 752204540 Never smoker 01/16 Sexually Active? Unknown No [...] 10/07/2021 Living arrangements Unknown Alf 09/03/[address]: 250126657 No Alcohol Consum ption 09/02/2020 Allergies, Adverse Reactions, Alerts Substance Reaction Codes Entered Date Inactivated Date Status * NO KNOWN FOOD ALLERGIES Unknown 07/13/2023 No Inactive Date Active LISINOPRIL RxNorm: 85259 02/12/2020 No Inactive Da te Active Metformin [...] E78. 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 Other custodial (current) dr ug therapy ICD-10: Z79.899 ICD-9: [...] 09/07/2023 Resolved Coronary artery disease invo lving [place] coronary artery of [place] heart, angina presence unspecified ICD-10: I25.10 ICD-9: [...] Date Stop Date Status Fill Instructions Radha MendenhallPen U-100 Insulin 100 unit/mL (3 mL) subcutaneous RxNorm: 7139091 Inject 40 Unit(s) Subcutaneous BID 03/07/20 24 025 Active Please dispense one month supply. Humulin R U-500 (Concentrated) Insulin 500 unit/mL subcutaneous soln RxNorm: 039613 Inject 100 Unit(s) Subcutaneous AC before meals Three times daily before meals. 03/07/20 025 Active Accu-Chek Guide test strips RxNorm: Use 1 Test Strip QID And PRN-- also dispense Soft Touch Lancets (QID and PRN) to be use with new Accu [place] meter 03/04/20 024 Inactive ok to substitute with any covered alternative test strip Accu-Chek Guide Glucose Meter RxNorm: Use 1 Miscellaneous UD as directed Use glucose meter to monitor blood glucose 4 times daily and as needed. Dx:E11.42 03/04/202 024 Inactive nystatin 100,000 unit/gram topical powder RxNorm: 337472 Apply 1 Application Topical BID as needed abdominal/breast /groin folds 03/02/20 Active FreeStyle Chema 2 Sensor kit RxNorm: Use UD as directed 03/02/20 025 Active Lancets,Thin 28 gauge RxNorm: Use 1 as directed QID lancet 03/02/20 24 024 Inactive FreeStyle Chema 2 Sensor kit [...] (Concentrated) Insulin 500 unit/mL subcutaneous soln RxNorm: 140207 Inject 100 Unit(s) Subcutaneous TID 02/17/20 24 024 Inactive Humulin R U-500 (Concentrated) Insulin 500 unit/mL subcutaneous soln RxNorm: 833811 Inject 100 Unit(s) Subcutaneous TID 02/10/20 24 024 Inactive Basaglar KwikPen U-100 Insulin 100 unit/mL (3 mL) subcutaneous RxNorm: 4084431 Inject 30 Unit(s) Subcutaneous BID 02/10/20 24 024 Inactive Please dispense one month supply. pregabalin 100 mg capsule RxNorm: 822526 Take 1 Capsule(s) Oral QAM every morning 02/07/20 24 024 Active isosorbide mononitrate ER 60 mg tablet,extended release 24 hr RxNorm: 061479 Take 1 Tablet(s) Oral QD 02/01/20 24 025 Active aripiprazole 15 mg tablet RxNorm: 373462 Take 1/2 Tablet(s) Oral QD 02/01/20 24 025 Active torsemide 20 mg tablet RxNorm: 981517 1 TAB ORALLY DAILY (DX: EDEMA) 01/27/20 No Stop Date Active potassium chloride ER 20 mEq tablet,extended release(part/cryst) RxNorm: 9353562 2 TABS (40MEQ) ORALLY TWICE DAILY (DX: HYPOKALEMIA) 01/27/20 No Stop Date Active cephalexin 500 mg capsule RxNorm: 014205 Take 1 Capsule(s) Oral QID 12/17/19 24 Inactive cephalexin 500 mg capsule RxNorm: 779578 Take 1 Capsule(s) Oral QID 12/17/19 24 Inactive acetaminophen 500 mg tablet RxNorm: 147810 (MAX APAP:4GM/24HR) Take 1 Tablet(s) Oral TID as needed for pain 12/10/19 24 Active torsemide 20 mg tablet RxNorm: 697580 Take 1 Tablet(s) Oral QD 10/26/19 24 Inactive potassium chloride ER 20 mEq tablet,extended release RxNorm: 840768 Take 2 Tablet(s) Oral BID 10/26/19 24 Active torsemide 20 mg tablet RxNorm: 775417 Take 1 Tablet(s) Oral QD 10/26/19 24 024 Inactive potassium chloride ER 20 mEq tablet,extended release RxNorm: 131007 Take 2 Tablet(s) Oral BID 10/26/19 24 Inactive Artificial Tears (PF) 0.1 %-0.3 % drops in a dropperette RxNorm: 923751 Apply 1-2 Drop(s) Both eyes BID as needed 09/28/19 24 025 Active erythromycin 5 mg/gram (0.5 %) eye ointment RxNorm: 215612 Apply 1 Application Both eyes QHS every night at bedtime Instill ~1 cm ribbon into affected eye 09/28/19 24 Inactive Artificial Tears (PF) 0.1 %-0.3 % drops in a dropperette RxNorm: 590049 Apply 1-2 Drop(s) Both eyes BID as needed 09/28/19 24 Inactive erythromycin 5 mg/gram (0.5 %) eye ointment RxNorm: 737905 Apply 1 Application Both eyes QHS every night at bedtime Instill ~1 cm ribbon into affected eye 09/28/19 24 Inactive acetaminophen 500 mg tablet RxNorm: 212178 (MAX APAP:4GM/24HR) Take 1 Tablet(s) Oral TID as needed for pain 09/24/19 24 Inactive carvedilol 25 mg tablet RxNorm: 517816 Take 1 Tablet(s) Oral QD 09/08/19 24 No Stop Date Active pregabalin 100 mg capsule RxNorm: 779459 Take 1 Capsule(s) Oral QAM every morning 09/07/19 24 Inactive rosuvastatin 40 mg tablet RxNorm: 531494 Take 1 Tablet(s) Oral QPM every evening 07/13/19 24 No Stop Date Active ezetimibe 10 mg tablet RxNorm: 516457 Take 1 Tablet(s) Oral QD 07/13/19 24 No Stop Date Active bisacodyl 10 mg rectal suppository RxNorm: 504326 Insert 1 Suppository Rectal QD as needed 07/13/19 24 No Stop Date Active polyethylene glycol 3350 17 gram/dose oral powder RxNorm: 794993 Take 17 Gram(s) Oral BID as needed mix in 4-8ox water 07/13/19 24 No Stop Date Active ketoconazole 2 % shampoo RxNorm: 744204 Apply 1 Application Topical UD as directed 07/13/19 24 No Stop Date Active Ozempic 1 mg/dose (4 mg/3 mL) subcutaneous pen injector RxNorm: 8213574 Inject 1 Milligram(s) Subcutaneous QW once a week 07/13/19 24 No Stop Date Active Guaifenesin AC 10 mg-100 mg/5 mL oral liquid RxNorm: 788639 Take 10 Milliliter(s) Oral Q4H every four hours as needed 07/13/19 24 No Stop Date Active ammonium lactate 12 % topical cream RxNorm: 799316 Apply 1 Application Topical BID 07/13/19 24 No Stop Date Active hydrocortisone 2.5 % topical cream RxNorm: 773023 Apply 1 Application Topical BID as needed 07/13/19 No Stop Date Active rosuvastatin 20 mg sprinkle capsule RxNorm: 6771077 Take 1 Capsule(s) Oral QD 07/13/19 24 No Stop Date Active Vascepa 1 gram capsule RxNorm: 3748449 Take 2 Capsule(s) Oral BID 07/13/19 24 No Stop Date Active venlafaxine ER 75 mg capsule,extended release 24 hr RxNorm: 942983 Take 3 Capsule(s) Oral QD 07/13/19 24 No Stop Date Active aripiprazole 15 mg tablet RxNorm: 402699 Take 1/2 Tablet(s) Oral QD 07/13/19 24 024 Inactive isosorbide mononitrate ER 60 mg tablet,extended release 24 hr RxNorm: 084500 Take 1 Tablet(s) Oral QD 07/13/19 24 024 Inactive Basaglar KwikPen U-100 Insulin 100 unit/mL (3 mL) subcutaneous RxNorm: 0859583 Inject 30U SubQ twice daily 07/07/19 24 024 Inactive Please dispense one month supply. Basaglar KwikPen U-100 Insulin 100 unit/mL (3 mL) subcutaneous RxNorm: 7177249 Inject 30U SubQ twice daily 07/07/19 24 024 Inactive Please dispense one month supply. pregabalin 150 mg capsule RxNorm: 714312 Take 1 Capsule(s) Oral QHS every night at bedtime 07/05/19 24 024 Inactive pregabalin 150 mg capsule RxNorm: 767478 Take 1 Capsule(s) Oral QHS every night at bedtime 07/05/19 24 024 Inactive polyethylene glycol 3350 17 gram/dose oral powder RxNorm: 664475 Take 1 Packet Oral QD as needed (1 packet = 17g) mix with 4-8oz of liquid 06/15/19 24 024 Inactive bisacodyl 10 mg rectal suppository RxNorm: 560415 Insert one suppository per rectum once daily as needed for constipation 06/15/19 24 024 Inactive bisacodyl 10 mg rectal suppository RxNorm: 844533 Insert one suppository per rectum once daily as needed for constipation 06/15/19 024 Inactive pregabalin 100 mg capsule RxNorm: 779477 Take 1 Capsule(s) Oral QAM every morning 04/27/20 024 Inactive Levemir FlexPen 100 unit/mL (3 mL) solution subcutaneous insulin pen RxNorm: 717168 Inject 30 Unit(s) Subcutaneous BID 04/27/20 024 Inactive rosuvastatin 40 mg tablet RxNorm: 669292 Take 1 Tablet(s) Oral QPM every evening 04/16/20 024 Inactive D/C rosuvastatin 20mg venlafaxine ER 75 mg capsule,extended release 24 hr RxNorm: 790705 Take 3 Capsule(s) Oral QD 04/14/20 023 Inactive pregabalin 100 mg capsule RxNorm: 697439 Take 1 Capsule(s) Oral QAM every morning [...] strip clotrimazole 1 % topical cream RxNorm: 273992 Take apply topically to abdominal folds twice daily for 14 days 03/12/20 024 Inactive Ozempic 1 mg/dose (4 mg/3 mL) subcutaneous pen injector RxNorm: 3685291 Inject 1 Milligram(s) Subcutaneous QW once a week 03/11/20 23 023 Inactive rosuvastatin 20 mg tablet RxNorm: 582602 Take 1 Tablet(s) Oral QD 02/26/20 23 023 Inactive d/c pravastatin 80mg Ozempic 1 mg/dose (4 mg/3 mL) subcutaneous pen injector RxNorm: 3378468 Inject 1 Milligram(s) Subcutaneous QW once a week 02/20/20 23 023 Inactive pregabalin 150 mg capsule RxNorm: 582224 Take 1 Capsule(s) Oral HS at bed time 02/19/20 23 023 Inactive pregabalin 100 mg capsule RxNorm: 174451 Take 1 Capsule(s) Oral QAM every morning 02/18/20 23 023 Inactive venlafaxine ER 75 mg capsule,extended release 24 hr RxNorm: 260826 Take 3 Capsule(s) Oral QD 02/04/20 23 023 Inactive FreeStyle Chema 2 Sensor kit RxNorm: use as directed 02/04/20 23 023 Inactive FreeStyle Chema 2 Sensor kit RxNorm: use as directed 02/04/20 23 024 Inactive fluconazole 150 mg tablet RxNorm: 776596 Take 1 Tablet(s) Oral on day 3 and on day 6 02/03/20 23 024 Inactive chlorthalidone 25 mg tablet RxNorm: 907155 Take 1 Tablet(s) Oral QAM every morning 02/03/20 23 No Stop Date Active venlafaxine ER 150 mg capsule,extended release 24 hr RxNorm: 394847 Take 1 Capsule(s) Oral QD 02/03/20 23 023 Inactive acetaminophen 500 mg tablet RxNorm: 225165 1 TABLET ORALLY 3 TIMES DAILY (MAX APAP:4GM/24HR) 12/15/19 23 023 Inactive clotrimazole 1 % topical cream RxNorm: 345558 apply 1g topically to top of feet and in between toes BID 12/09/19 23 023 Inactive potassium chloride ER 20 mEq tablet,extended release RxNorm: 113570 Take 1 Tablet(s) Oral BID 12/09/19 23 024 Inactive d/c 20mEq once daily (sent from hospital) nystatin 100,000 unit/gram topical powder RxNorm: 454022 APPLY TO AFFECTED AREAS TOPICALLY 2 TIMES DAILY 11/21/19 23 023 Inactive Nystop 100,000 unit/gram topical powder RxNorm: 790064 Apply to abd folds, under breasts and L side of groin Topical BID x 14 days, then BID PRN 11/20/19 023 Inactive dx: yeast dermatitis [place] Ultra Strength 4 %-30 %-10 % topical cream RxNorm: 243870 Apply 1 Gram(s) Topical QID PRN to feet and legs for neuropathic pain 11/11/19 024 Inactive clotrimazole 1 % topical cream RxNorm: 600850 Apply 1/2 Gram(s) Topical BID Apply to affected areas of groin, periarea, and abdominal topically 2 times daily 11/10/19 023 Inactive hydrocortisone 2.5 % topical cream RxNorm: 275657 Apply 1/2 Gram(s) Topical BID as needed 11/10/19 024 Inactive Levemir FlexPen 100 unit/mL (3 mL) solution subcutaneous insulin pen RxNorm: 212336 Inject 30 Unit(s) Subcutaneous BID 10/07/19 023 Inactive Humulin R U-500 (Concentrated) Insulin 500 unit/mL subcutaneous soln RxNorm: 654356 Inject 100 Unit(s) Subcutaneous TID 10/07/19 024 Inactive Ozempic 0.25 mg or 0.5 mg (2 mg/3 mL) subcutaneous pen injector RxNorm: 1573821 Inject 1/2 Milligram(s) Subcutaneous QW once a week 10/07/19 024 Inactive aripiprazole 15 mg tablet RxNorm: 924949 1/2 TAB (7.5MG) ORALLY DAILY (DX:MAJOR DEPRESSIVE DISORDER) 09/23/19 023 Inactive Accu-Chek Guide test strips RxNorm: Use 1 Test Strip QID 09/15/19 023 Inactive ok to substitute with any covered alternative test strip Lancets,Thin 28 gauge RxNorm: Use 1 as directed QID 09/15/19 23 023 Inactive torsemide 20 mg tablet RxNorm: 982068 Take 1 Tablet(s) Oral BID 09/09/19 024 Inactive d/c once daily dosing carvedilol 25 mg tablet RxNorm: 806239 Take 1 Tablet(s) Oral QD 08/25/19 024 Inactive pregabalin 150 mg capsule RxNorm: 188111 1 Capsule(s) Oral HS at bed time 08/18/19 23 023 Inactive pregabalin 100 mg capsule RxNorm: 087551 1 Capsule(s) Oral QAM every morning 08/18/19 23 023 Inactive carvedilol 25 mg tablet RxNorm: 132493 1 Tablet(s) Oral QD 07/28/19 23 023 Inactive lisinopril 20 mg tablet RxNorm: 053769 Give 1 Tablet(s) Oral QD 07/28/19 23 023 Inactive Lyrica 150 mg capsule RxNorm: 244786 Take 1 Capsule(s) Oral QHS every night at bedtime 07/19/19 023 Inactive d/c 100mg dose Diflucan 150 mg tablet RxNorm: 922041 Take 1 Tablet(s) Oral QD repeat on day 3 and 6 07/19/19 023 Inactive pregabalin 100 mg capsule RxNorm: 202949 Take 1 Capsule(s) Oral QAM every morning 07/19/19 23 023 Inactive gatifloxacin 0.5 % eye drops RxNorm: 843726 Instill 1 Drop(s) as directed TID Instill 1 drop in to affected eye(s) starting 1 day prior to surgery and continue until gone (do not exceed 4 weeks). 07/13/19 23 023 Inactive carvedilol 25 mg tablet RxNorm: 504508 2 Tablet(s) Oral BID 07/13/19 23 023 Inactive Humulin R Regular U-100 Insulin 100 unit/mL injection solution RxNorm: 529102 85 Unit(s) Injection TID 07/13/19 23 023 Inactive ketorolac 0.5 % eye drops RxNorm: 210311 Instill 1 Drop(s) as directed QID Instill 1 drop into affected eye(s) 4 times daily starting 1 day prior to surgery and continue until gone (do not exceed 4 weeks). 07/13/19 23 023 Inactive Diflucan 150 mg tablet RxNorm: 385926 Take 1 Tablet(s) Oral QD repeat on day 3 and 6 06/30/19 023 Inactive Accu-Chek Guide test strips RxNorm: Use 1 Test Strip QID Use 1 test strip to monitor blood glucose 4 times daily and as needed. Dx:E11.42. 06/23/19 023 Inactive ok to substitute with any covered alternative test strip dextromethorphan-gu aifenesin 10 mg-100 mg/5 mL oral liquid RxNorm: 174525 Take 10 Milliliter(s) Oral every 4 hours as needed for cough 06/19/19 023 Inactive dextromethorphan-gu aifenesin 10 mg-100 mg/5 mL oral liquid RxNorm: 139415 Take 10 Milliliter(s) Oral every 4 hours as needed for cough 06/19/19 023 Inactive Lyrica 150 mg capsule RxNorm: 276587 Take 1 Capsule(s) Oral QHS every night at bedtime 06/18/19 023 Inactive d/c 100mg dose aripiprazole 15 mg tablet RxNorm: 292096 1/2 TAB (7.5MG) ORALLY DAILY (DX:MAJOR DEPRESSIVE DISORDER) 06/05/19 023 Inactive pregabalin 100 mg capsule RxNorm: 426603 1 Capsule(s) Oral QAM every morning 06/02/19 023 Inactive Banophen 50 mg capsule RxNorm: 0032249 Take 1 Capsule(s) Oral Q6H every 6 hours as needed 05/19/19 23 No Stop Date Active Novolog Flexpen U-100 Insulin aspart 100 unit/mL (3 mL) subcutaneous RxNorm: 0934265 Inject 10 Unit(s) Subcutaneous QHS every night at bedtime with nighttime snack 04/08/20 22 022 Inactive Novolog Flexpen U-100 Insulin aspart 100 unit/mL (3 mL) subcutaneous RxNorm: 5105377 Inject 42 Unit(s) Subcutaneous TID in addition to sliding scale 04/08/20 022 Inactive d/c 36u albuterol sulfate HFA 90 mcg/actuation aerosol inhaler RxNorm: 5855058 Take 2 Puff(s) Inhalation Q4H every four hours as needed as needed for SOB, cough, or wheezing 04/07/20 030 Active Banophen 50 mg capsule RxNorm: 8968401 Take 1 Capsule(s) Oral Q6H every 6 hours as needed 04/06/20 023 Inactive diphenhydramine 50 mg tablet RxNorm: 3893321 Take 1 Tablet(s) Oral Q6H every 6 hours as needed 04/06/20 022 Inactive diphenhydramine 50 mg tablet RxNorm: 7193638 1 Tablet(s) Oral Q6H every 6 hours as needed 04/06/20 022 Inactive Abilify 15 mg tablet RxNorm: 178802 1/2 Tablet(s) Oral QD 03/10/20 023 Inactive Shingrix (PF) 50 mcg/0.5 mL intramuscular suspension, kit RxNorm: 6345903 Administer 1/2 Milliliter(s) Intramuscular QD one time shingrix step 2 ( step 1 given 11/04/21) WITH needle - Nursing please administer upon arrival and once administered post a bridge message 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, 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, expiration date, and lot# so we can update [facility] 02/18/20 22 022 Inactive dispense with needle Shingrix (PF) 50 mcg/0.5 mL intramuscular suspension, kit RxNorm: 4753791 Administer 1/2 Milliliter(s) Intramuscular QD one time shingrix step 2 ( step 1 given 11/04/21) WITH needle - Nursing please administer upon arrival and once administered post a bridge message with 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, 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, expiration date, and lot# so we can update [facility] 02/18/20 22 022 Inactive dispense with needle polyethylene glycol 3350 17 gram/dose oral powder RxNorm: 093455 Take 17=1 capful Gram(s) Oral QD mix with 4-8oz of liquid 01/08/20 22 023 Inactive take this in addition to BID prn order Lyrica 100 mg capsule RxNorm: 002692 Take 1 Capsule(s) Oral QAM every morning 01/08/20 22 022 Inactive d/c 50mg dose acetaminophen 500 mg tablet RxNorm: 512432 Take 1 Tablet(s) Oral TID 01/08/20 22 022 Inactive d/c PRN order Lyrica 150 mg capsule RxNorm: 932311 Take 1 Capsule(s) Oral QHS every night at bedtime 01/08/20 22 023 Inactive d/c 100mg dose Abilify 5 mg tablet RxNorm: 653898 Take 1 Tablet(s) Oral QD take 1 tab po QD #30 refill 5 dx: MDD 12/12/19 22 022 Inactive Abilify 5 mg tablet RxNorm: 067467 Take 1 Tablet(s) Oral QD take 1 tab po QD #30 refill 5 dx: MDD 12/12/19 22 022 Inactive Novolog Flexpen U-100 Insulin aspart 100 unit/mL (3 mL) subcutaneous RxNorm: 2728804 Inject 42 Unit(s) Subcutaneous TID in addition to sliding scale 12/10/19 22 022 Inactive d/c 36u chlorthalidone 25 mg tablet RxNorm: 506920 Take 1 Tablet(s) Oral QAM every morning 12/10/19 22 023 Inactive pregabalin 50 mg capsule RxNorm: 628707 Take 1 Capsule(s) Oral QAM every morning 11/12/19 22 022 Inactive tetanus-diphtheria toxoids-Td 2 Lf unit-2 Lf unit/0.5 mL IM suspension RxNorm: 139 Take 0.5 Miscellaneous Intramuscular 11/12/19 22 022 Inactive need tdap - nursing to administer upon arrival pregabalin 50 mg capsule RxNorm: 379414 Take 1 Capsule(s) Oral QAM every morning 10/16/19 22 022 Inactive pregabalin 50 mg capsule RxNorm: 933831 Take 1 Capsule(s) Oral QAM every morning 10/16/19 22 022 Inactive pregabalin 50 mg capsule RxNorm: 929062 1 Capsule(s) Oral QAM every morning 10/15/19 22 022 Inactive Shingrix (PF) 50 mcg/0.5 mL intramuscular suspension, kit RxNorm: 4817110 Administer 1/2 Milliliter(s) Intramuscular one time Nursing please administer upon arrival and once administered post a bridge message with 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 10/09/19 22 022 Inactive shingrix step 1 cholecalciferol (vitamin D3) 1,250 mcg (50,000 unit) capsule RxNorm: 088030 Take 1 Capsule(s) Oral QW once a [...] aspart 100 unit/mL (3 mL) subcutaneous RxNorm: 5206455 Inject 10 Unit(s) Subcutaneous QHS every night at bedtime with nighttime snack 10/08/19 22 022 Inactive Shingrix (PF) 50 mcg/0.5 mL intramuscular suspension, kit RxNorm: 6207990 ADMINISTER 2-DOSE SERIES PER CDC GUIDELINES 10/08/19 22 022 Active Shingrix (PF) 50 mcg/0.5 mL intramuscular suspension, kit RxNorm: 4745143 ADMINISTER 2-DOSE SERIES PER CDC GUIDELINES 10/08/19 22 022 Inactive Novolog Flexpen U-100 Insulin aspart 100 unit/mL (3 mL) subcutaneous RxNorm: 5994614 Inject 36 Unit(s) Subcutaneous TID in addition to sliding scale 10/08/19 Inactive Novofine Autocover 30 gauge x 1/3 needle RxNorm: Use 1 Miscellaneous UD as directed Use 1 needle as directed to administer insulin 5 times a day Dx:E11.42. 10/03/19 22 Inactive ok to substitute with any covered alternative pen needle benzoyl peroxide 10 % topical cleanser RxNorm: 242509 Apply 1 Application Topical QD apply to face, wash rinse and dry once daily (may change to QOD if drying) 08/19/19 022 Inactive (%covered by insurance) #60ml refill 11 dx: acne benzoyl peroxide 10 % topical cleanser RxNorm: 156335 Apply 1 Application Topical QD apply to face, wash rinse and dry once daily (may change to QOD if drying) 08/19/19 022 Inactive (%covered by insurance) #60ml refill 11 dx: acne benzoyl peroxide 10 % topical cleanser RxNorm: 078238 Apply 1 Application Topical QD apply to face, wash rinse and dry once daily (may change to QOD if drying) 08/19/19 022 Inactive (%covered by insurance) #60ml refill 11 dx: acne Lyrica 50 mg capsule RxNorm: 176163 Take 1 Capsule(s) Oral QAM every morning Take 1 capsule by mouth once daily 08/19/19 22 022 Inactive benzoyl peroxide 10 % topical cleanser RxNorm: 093015 Apply 1 Application Topical QD apply to face, wash rinse and dry once daily (may change to QOD if drying) 08/19/19 022 Inactive (%covered by insurance) #60ml refill 11 dx: acne Lyrica 100 mg capsule RxNorm: 664936 Take 1 Capsule(s) Oral QHS every night at bedtime Take 1 capsule by mouth once daily at bedtime 08/19/19 22 022 Inactive Lyrica 100 mg capsule RxNorm: 744142 Take 1 Capsule(s) Oral QHS every night at bedtime Take 1 capsule by mouth once daily at bedtime 08/16/19 22 022 Inactive Lyrica 50 mg capsule RxNorm: 601861 Take 1 Capsule(s) Oral QAM every morning Take 1 capsule by mouth once daily 08/16/19 22 022 Inactive Levemir FlexTouch U-100 Insulin 100 unit/mL (3 mL) subcutaneous pen RxNorm: 143085 Inject 86 Unit(s) Subcutaneous BID 08/05/19 22 022 Inactive d/c 83units BID Lyrica 100 mg capsule RxNorm: 648563 Take 1 Capsule(s) Oral QHS every night at bedtime Take 1 capsule by mouth once daily at bedtime 07/14/19 22 022 Inactive Lyrica 50 mg capsule RxNorm: 921498 Take 1 Capsule(s) Oral QAM every morning Take 1 capsule by mouth once daily 07/14/19 22 022 Inactive Levemir FlexTouch U-100 Insulin 100 unit/mL (3 mL) subcutaneous pen RxNorm: 578905 Inject 83 Unit(s) Subcutaneous BID 07/08/19 22 [...] test strip hydralazine 50 mg tablet RxNorm: 086824 Take 1 Tablet(s) Oral QID 05/05/20 21 022 Inactive venlafaxine ER 225 mg tablet,extended release 24 hr RxNorm: 355412 Take 1 Tablet(s) Oral QD 05/05/20 21 021 Inactive venlafaxine ER 225 mg tablet,extended release 24 hr RxNorm: 134034 Take 1 Tablet(s) Oral QD 05/05/20 022 Inactive isosorbide mononitrate ER 30 mg tablet,extended release 24 hr RxNorm: 438763 Take 1 Tablet(s) Oral QD 05/05/20 024 Inactive hydralazine 50 mg tablet RxNorm: 193162 Take 1 Tablet(s) Oral QID 05/05/20 21 Inactive aspirin 81 mg tablet,delayed release RxNorm: 082646 Take 1 Tablet(s) Oral QD 03/31/20 022 Inactive Vitamin D2 1,250 mcg (50,000 unit) capsule RxNorm: 4235418 Take 1 Capsule(s) Oral QW once a week x 12 weeks 03/31/20 022 Inactive Vitamin D2 1,250 mcg (50,000 unit) capsule RxNorm: 4273310 Take 1 Capsule(s) Oral QW once a week 03/31/20 021 Inactive Zetia 10 mg tablet RxNorm: 295344 Take 1 Tablet(s) Oral QD 03/31/20 024 Inactive Zetia 10 mg tablet RxNorm: 385143 Take 1 Tablet(s) Oral QD 03/31/20 21 021 Inactive hydralazine 25 mg tablet RxNorm: 120568 Take 1 Tablet(s) Oral QID 03/31/20 21 021 Inactive hydralazine 25 mg tablet RxNorm: 013364 Take 1 Tablet(s) Oral QID 03/31/20 021 Inactive hydralazine 10 mg tablet RxNorm: 989793 Take 1 Tablet(s) Oral QID 03/03/20 021 Inactive cephalexin 500 mg tablet RxNorm: 728434 Take 1 Tablet(s) Oral QID 02/27/20 021 Inactive cephalexin 500 mg tablet RxNorm: 555490 Take 1 Tablet(s) Oral QID 02/27/20 021 Inactive lisinopril 40 mg tablet RxNorm: 885808 Take 1 Tablet(s) Oral QD 02/11/20 023 Inactive Eliquis 5 mg tablet RxNorm: 7049332 Take 1 Tablet(s) Oral BID 01/05/20 21 022 Inactive Eliquis 5 mg tablet RxNorm: 7141391 Take 2 Tablet(s) Oral QD 01/01/20 21 021 Inactive Lyrica 50 mg capsule RxNorm: 042252 Take 1 Capsule(s) Oral QAM every morning 12/24/19 21 021 Inactive Lyrica 100 mg capsule RxNorm: 230361 Take 1 Capsule(s) Oral QHS every night at bedtime 12/24/19 021 Inactive clotrimazole 1 % topical cream RxNorm: 444058 Apply to right foot and toes Topical BID 12/04/19 21 023 Inactive metoprolol succinate ER 200 mg tablet,extended release 24 hr RxNorm: 076709 Take 1 Tablet(s) Oral QD 12/04/19 21 023 Inactive ciprofloxacin 500 mg tablet RxNorm: 158082 Take 1 Tablet(s) Oral QD 11/30/19 21 021 Inactive DX ofloxacin otic drops Accu-Chek Guide test strips RxNorm: USE 1 TO CHECK GLUCOSE 4 TIMES DAILY AND NEEDED 11/15/19 21 023 Inactive Blood Glucose Test strips RxNorm: Use 1 Test Strip QID at PRN 11/05/19 21 023 Inactive E11.42 lisinopril 30 mg tablet RxNorm: 601793 Take 1 Tablet(s) Oral QD 10/30/19 21 021 Inactive lisinopril 20 mg tablet RxNorm: 523561 Take 1 Tablet(s) Oral QD 10/23/19 21 021 Inactive lisinopril 20 mg tablet RxNorm: 729635 Take 1 Tablet(s) Oral QD 10/23/19 21 021 Inactive lisinopril 10 mg tablet RxNorm: 591971 Take 1 Tablet(s) Oral QD 10/02/19 021 Inactive icosapent ethyl 1 gram capsule RxNorm: 9779202 Take 2 Capsule(s) (2 gm) Oral BID with meals 09/12/19 21 024 Inactive Okay to dispense one 2gm tab if you have that available. icosapent ethyl 1 gram capsule RxNorm: 6230588 Take 2 Capsule(s) Oral BID 09/12/19 21 021 Inactive Okay to dispense one 2gm tab if you have that available. amlodipine 10 mg tablet RxNorm: 403246 Take 1 Tablet(s) Oral QD 09/04/19 022 Inactive aspirin 81 mg tablet,delayed release RxNorm: 788444 Take 1 Tablet(s) Oral QD 09/04/19 21 021 Inactive Levemir FlexTouch U-100 Insulin 100 unit/mL (3 mL) subcutaneous pen RxNorm: 904628 Inject 150 Unit(s) Subcutaneous BID 09/04/19 21 022 Inactive venlafaxine ER 150 mg tablet,extended release 24 hr RxNorm: 644602 Take 1 Tablet(s) Oral QD 09/04/19 21 021 Inactive clotrimazole-betame thasone 1 %-0.05 % topical cream RxNorm: 850629 Apply to rash on red area on left abdomen/chest Topical BID 08/10/19 21 021 Inactive amlodipine 5 mg tablet RxNorm: 721554 Take 1 Tablet(s) Oral QD 07/31/19 Inactive cephalexin 500 mg tablet RxNorm: 076524 Take 1 Tablet(s) Oral BID BID - Twice Daily 07/31/19 Inactive Start 08/01/20 pantoprazole 40 mg tablet,delayed release RxNorm: 745870 Take 1 Tablet(s) Oral QAM every morning 07/08/19 Inactive senna 8.6 mg tablet RxNorm: 127576 Take 1 Tablet(s) Oral QD 07/08/19 022 Inactive carbamazepine 200 mg tablet RxNorm: 752106 Take 1 Tablet(s) Oral BID 07/08/19 Inactive clopidogrel 75 mg tablet RxNorm: 872927 Take 1 Tablet(s) Oral QD 07/08/19 021 Inactive Blood Glucose Test strips RxNorm: Use 1 Test Strip QID at PRN 07/08/19 Inactive E11.42 Novolog Flexpen U-100 Insulin aspart 100 unit/mL (3 mL) subcutaneous RxNorm: 6448656 Administer per sliding scale Milliliter(s) Subcutaneous TID 151-200: 10 u; 201-250: 20 u; 251-300: 30 u; 301-350: 40 u; 351-400: 50 u. 07/08/19 Inactive lisinopril 5 mg tablet RxNorm: 516788 Take 1 Tablet(s) Oral QD 07/08/19 Inactive Novolog Flexpen U-100 Insulin aspart 100 unit/mL (3 mL) subcutaneous RxNorm: 9575514 Inject 85 Unit(s) Subcutaneous TID 07/08/19 022 Inactive pravastatin 80 mg tablet RxNorm: 294378 Take 1 Tablet(s) Oral QHS every night at bedtime 07/08/19 023 Inactive clotrimazole 1 % topical cream RxNorm: 068840 Apply to bilateral groin areas Topical BID 07/08/19 21 022 Inactive metoprolol succinate ER 200 mg tablet,extended release 24 hr RxNorm: 635118 Take 1 Tablet(s) Oral QD 07/08/19 21 021 Inactive Vitamin D3 25 mcg (1,000 unit) tablet RxNorm: 141490 Take 1 Tablet(s) Oral QD 07/08/19 Inactive isosorbide dinitrate 30 mg tablet RxNorm: 666775 Take 1 Tablet(s) Oral QD 07/08/19 021 Inactive Levemir FlexTouch U-100 Insulin 100 unit/mL (3 mL) subcutaneous pen RxNorm: 218824 Inject 140 Unit(s) Subcutaneous BID 07/08/19 021 Inactive torsemide 20 mg tablet RxNorm: 697143 Take 1 Tablet(s) Oral QD 07/08/19 023 Inactive venlafaxine 75 mg tablet RxNorm: 627088 Take 1 Tablet(s) Oral QD 07/08/19 021 Inactive acetaminophen 500 mg tablet RxNorm: 471518 Take 1 Tablet(s) Oral TID as needed for headache 06/18/19 021 Inactive acetaminophen 500 mg tablet RxNorm: 075480 Take 1 Tablet(s) Oral TID as needed for headache 06/18/19 021 Inactive Lyrica 100 mg capsule RxNorm: 318495 Take 1 Capsule(s) Oral QHS every night at bedtime 06/11/19 021 Inactive Lyrica 50 mg capsule RxNorm: 713126 Take 1 Capsule(s) Oral QAM every morning 06/10/19 021 Inactive hydrocortisone 2.5 % topical cream RxNorm: 098494 Apply to bilateral groin creases Topical BID 05/15/20 20 021 Inactive clotrimazole 1 % topical cream RxNorm: 573636 Apply to bilateral groin areas Topical BID 05/15/20 20 021 Inactive Lyrica 50 mg capsule RxNorm: 823416 Take 1 Capsule(s) Oral QAM every morning 05/14/20 20 020 Inactive Lyrica 100 mg capsule RxNorm: 447253 Take 1 Capsule(s) Oral QHS every night [...] Inactive Nystop 100,000 unit/gram topical powder RxNorm: 261711 Apply to abd folds, under breasts and L side of groin Topical BID x 14 days, then BID PRN 04/08/20 20 Inactive dx: yeast dermatitis Lyrica 100 mg capsule RxNorm: 103032 Take 1 Capsule(s) Oral QHS every night at bedtime 03/13/20 20 Inactive Lyrica 50 mg capsule RxNorm: 146855 Take 1 Capsule(s) Oral QAM every morning 03/13/20 20 Inactive ketoconazole 2 % shampoo RxNorm: 127554 Apply Topical two times a week with showers 03/11/20 20 Inactive cholecalciferol (vitamin D3) 50 mcg (2,000 unit) tablet RxNorm: 556060 Take 1 Tablet(s) Oral QD 03/11/20 20 021 Inactive Zetia 10 mg tablet RxNorm: 743995 Take 1 Tablet(s) Oral QD 03/07/20 20 021 Inactive Zetia 10 mg tablet RxNorm: 427862 Take 1 Tablet(s) Oral QD 03/07/20 20 020 Inactive Lyrica 50 mg capsule RxNorm: 679344 Take 1 Capsule(s) Oral QAM every morning 02/15/20 20 Inactive Lyrica 100 mg capsule RxNorm: 314551 Take 1 Capsule(s) Oral QHS every night at bedtime 02/15/20 20 Inactive Lyrica 100 mg capsule RxNorm: 444472 Take 1 Capsule(s) Oral QHS every night at bedtime 02/15/20 20 020 Inactive Lyrica 50 mg capsule RxNorm: 251845 Take 1 Capsule(s) Oral QAM every morning 02/15/20 Inactive metoprolol succinate ER 200 mg tablet,extended release 24 hr RxNorm: 390168 Take 1 Tablet(s) Oral QD 08/12/19 23 Active loperamide 2 mg capsule RxNorm: 145334 Take 1 Capsule(s) Oral QID as needed 06/12/19 22 Active hydralazine 50 mg tablet RxNorm: 427845 Take 1 Tablet(s) Oral QID 08/12/19 23 Active Soft Touch Lancets RxNorm: miscellaneous 03/04/20 24 Active venlafaxine ER 75 mg capsule,extended release 24 hr RxNorm: 566754 Take 3 Capsule(s) Oral QD 06/12/19 22 023 Inactive polyethylene glycol 3350 17 gram/dose oral powder RxNorm: 606612 Take 17=1 capful Gram(s) Oral BID as needed mix with 4-8oz of liquid 06/12/19 22 024 Inactive icosapent ethyl 1 gram capsule RxNorm: 6987395 Take 2 Capsule(s) (2 gm) Oral BID with meals 10/07/19 23 023 Inactive Okay to dispense one 2gm tab if you have that available. Levemir FlexTouch U-100 Insulin 100 unit/mL (3 mL) subcutaneous pen RxNorm: 281540 Inject 80 Unit(s) Subcutaneous BID 07/14/19 23 023 Inactive Novolog Flexpen U-100 Insulin aspart 100 unit/mL (3 mL) subcutaneous RxNorm: 8832476 Insert 30 Unit(s) Subcutaneous TID with meals [...] [facility]: [id number] [id number] [place] Referral Records Received 09/21/2022 Referral: [facility]: [address] [id number] [place] Referral Completed 05/28/2021 Referral: General Cardiology [...] [facility]. Sister Jyotsna involved in his care cell# [phone] Guardian: Giulia (tapan met in person 09/01/21), [...]
--- OUTSIDE RECORDS SUMMARY | 2024-03-09 01:40 | XMS_ITS | CCD ---
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 ASSEMBLER-C, [facility] Chronic Care Management U navailable Summary Purpose DataExchange Insurance Providers Payer name Policy type / Coverage type Covered alliance party ID Effective Begin Date Effective End Date [place] Medicare Part B [id number] Unknown Unknown [place] Medicare Part B [id number] Unknown Unknown Family history Sister Brittany Suggs Diagnosis Age At Onset No Family Disease Entered N/A Runs in the family Diagnosis Age At Onset No Known Diseases N/A Sister Blanka Mcduffie Diagnosis Age At Onset No Family Disease Entered N/A Social History Social History Element Codes Description Effec tive Dates Tobacco history SNOMED CT: 902090276 Never smoker 01/16 Sexually Active? Unknown No [...] Jail 09/03/[address]: 366861799 No Alcohol Consum ption 09/02/2020 Allergies, Adverse Reactions, Alerts Substance Reaction Codes Entered Date Inactivated Date Status * NO KNOWN FOOD ALLERGIES Unknown 07/13/2023 No Inactive Date Active LISINOPRIL RxNorm: 59893 02/12/2020 No Inactive Da te Active Metformin [...] E78. 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 Other care home (current) dr ug therapy ICD-10: Z79.899 [...] 09/07/2023 Resolved Coronary artery disease invo lving [place] coronary artery of [place] heart, angina presence unspecified ICD-10: I25.10 ICD-9: [...] Insulin 100 unit/mL (3 mL) subcutaneous RxNorm: 1736922 Inject 40 Unit(s) Subcutaneous BID 03/07/20 24 025 Active Please dispense one month supply. Humulin R U-500 (Concentrated) Insulin 500 unit/mL subcutaneous soln RxNorm: 985860 Inject 100 Unit(s) Subcutaneous AC before meals Three times daily before meals. 03/07/20 025 Active Accu-Chek Guide test strips RxNorm: Use 1 Test Strip QID And PRN-- also dispense Soft Touch Lancets (QID and PRN) to be use with new Accu [place] meter 03/04/20 024 Inactive ok to substitute with any covered alternative test strip Accu-Chek Guide Glucose Meter RxNorm: Use 1 Miscellaneous UD as directed Use glucose meter to monitor blood glucose 4 times daily and as needed. Dx:E11.42 03/04/202 024 Inactive nystatin 100,000 unit/gram topical powder RxNorm: 746350 Apply 1 Application Topical BID as needed [...] (Concentrated) Insulin 500 unit/mL subcutaneous soln RxNorm: 602219 Inject 100 Unit(s) Subcutaneous TID 02/17/20 24 024 Inactive Humulin R U-500 (Concentrated) Insulin 500 unit/mL subcutaneous soln RxNorm: 895432 Inject 100 Unit(s) Subcutaneous TID 02/10/20 24 024 Inactive Basaglar KwikPen U-100 Insulin 100 unit/mL (3 mL) subcutaneous RxNorm: 3135754 Inject 30 Unit(s) Subcutaneous BID 02/10/20 24 024 Inactive Please dispense one month supply. pregabalin 100 mg capsule RxNorm: 444213 Take 1 Capsule(s) Oral QAM every morning 02/07/20 24 024 Active isosorbide mononitrate ER 60 mg tablet,extended release 24 hr RxNorm: 578542 Take 1 Tablet(s) Oral QD 02/01/20 24 025 Active aripiprazole 15 mg tablet RxNorm: 269390 Take 1/2 Tablet(s) Oral QD 02/01/20 24 025 Active torsemide 20 mg tablet RxNorm: 783663 1 TAB ORALLY DAILY (DX: EDEMA) 01/27/20 No Stop Date Active potassium chloride ER 20 mEq tablet,extended release(part/cryst) RxNorm: 2303973 2 TABS (40MEQ) ORALLY TWICE DAILY (DX: HYPOKALEMIA) 01/27/20 No Stop Date Active cephalexin 500 mg capsule RxNorm: 899526 Take 1 Capsule(s) Oral QID 12/17/19 24 Inactive cephalexin 500 mg capsule RxNorm: 980669 Take 1 Capsule(s) Oral QID 12/17/19 24 Inactive acetaminophen 500 mg tablet RxNorm: 229131 (MAX APAP:4GM/24HR) Take 1 Tablet(s) Oral TID as needed for pain 12/10/19 24 Active torsemide 20 mg tablet RxNorm: 353098 Take 1 Tablet(s) Oral QD 10/26/19 24 Inactive potassium chloride ER 20 mEq tablet,extended release RxNorm: 995292 Take 2 Tablet(s) Oral BID 10/26/19 24 Active torsemide 20 mg tablet RxNorm: 933210 Take 1 Tablet(s) Oral QD 10/26/19 24 024 Inactive potassium chloride ER 20 mEq tablet,extended release RxNorm: 964278 Take 2 Tablet(s) Oral BID 10/26/19 24 Inactive Artificial Tears (PF) 0.1 %-0.3 % drops in a dropperette RxNorm: 498085 Apply 1-2 Drop(s) Both eyes BID as needed 09/28/19 24 025 Active erythromycin 5 mg/gram (0.5 %) eye ointment RxNorm: 817946 Apply 1 Application Both eyes QHS every night at bedtime Instill ~1 cm ribbon into affected eye 09/28/19 24 Inactive Artificial Tears (PF) 0.1 %-0.3 % drops in a dropperette RxNorm: 098210 Apply 1-2 Drop(s) Both eyes BID as needed 09/28/19 24 Inactive erythromycin 5 mg/gram (0.5 %) eye ointment RxNorm: 903082 Apply 1 Application Both eyes QHS every night at bedtime Instill ~1 cm ribbon into affected eye 09/28/19 24 Inactive acetaminophen 500 mg tablet RxNorm: 602065 (MAX APAP:4GM/24HR) Take 1 Tablet(s) Oral TID as needed for pain 09/24/19 24 Inactive carvedilol 25 mg tablet RxNorm: 213246 Take 1 Tablet(s) Oral QD 09/08/19 24 No Stop Date Active pregabalin 100 mg capsule RxNorm: 928740 Take 1 Capsule(s) Oral QAM every morning 09/07/19 24 Inactive rosuvastatin 40 mg tablet RxNorm: 834192 Take 1 Tablet(s) Oral QPM every evening 07/13/19 24 No Stop Date Active ezetimibe 10 mg tablet RxNorm: 536122 Take 1 Tablet(s) Oral QD 07/13/19 24 No Stop Date Active bisacodyl 10 mg rectal suppository RxNorm: 888894 Insert 1 Suppository Rectal QD as needed 07/13/19 24 No Stop Date Active polyethylene glycol 3350 17 gram/dose oral powder RxNorm: 234385 Take 17 Gram(s) Oral BID as needed mix in 4-8ox water 07/13/19 24 No Stop Date Active ketoconazole 2 % shampoo RxNorm: 736691 Apply 1 Application Topical UD as directed 07/13/19 24 No Stop Date Active Ozempic 1 mg/dose (4 mg/3 mL) subcutaneous pen injector RxNorm: 4304036 Inject 1 Milligram(s) Subcutaneous QW once a week 07/13/19 24 No Stop Date Active Guaifenesin AC 10 mg-100 mg/5 mL oral liquid RxNorm: 819665 Take 10 Milliliter(s) Oral Q4H every four hours as needed 07/13/19 24 No Stop Date Active ammonium lactate 12 % topical cream RxNorm: 459769 Apply 1 Application Topical BID 07/13/19 24 No Stop Date Active hydrocortisone 2.5 % topical cream RxNorm: 999072 Apply 1 Application Topical BID as needed 07/13/19 No Stop Date Active rosuvastatin 20 mg sprinkle capsule RxNorm: 1939060 Take 1 Capsule(s) Oral QD 07/13/19 24 No Stop Date Active Vascepa 1 gram capsule RxNorm: 7497067 Take 2 Capsule(s) Oral BID 07/13/19 24 No Stop Date Active venlafaxine ER 75 mg capsule,extended release 24 hr RxNorm: 056089 Take 3 Capsule(s) Oral QD 07/13/19 24 No Stop Date Active aripiprazole 15 mg tablet RxNorm: 527205 Take 1/2 Tablet(s) Oral QD 07/13/19 24 024 Inactive isosorbide mononitrate ER 60 mg tablet,extended release 24 hr RxNorm: 900619 Take 1 Tablet(s) Oral QD 07/13/19 24 024 Inactive Basaglar KwikPen U-100 Insulin 100 unit/mL (3 mL) subcutaneous RxNorm: 7058825 Inject 30U SubQ twice daily 07/07/19 24 024 Inactive Please dispense one month supply. Basaglar KwikPen U-100 Insulin 100 unit/mL (3 mL) subcutaneous RxNorm: 0350616 Inject 30U SubQ twice daily 07/07/19 24 024 Inactive Please dispense one month supply. pregabalin 150 mg capsule RxNorm: 195941 Take 1 Capsule(s) Oral QHS every night at bedtime 07/05/19 24 024 Inactive pregabalin 150 mg capsule RxNorm: 376318 Take 1 Capsule(s) Oral QHS every night at bedtime 07/05/19 24 024 Inactive polyethylene glycol 3350 17 gram/dose oral powder RxNorm: 398024 Take 1 Packet Oral QD as needed (1 packet = 17g) mix with 4-8oz of liquid 06/15/19 24 024 Inactive bisacodyl 10 mg rectal suppository RxNorm: 267400 Insert one suppository per rectum once daily as needed for constipation 06/15/19 24 024 Inactive bisacodyl 10 mg rectal suppository RxNorm: 407308 Insert one suppository per rectum once daily as needed for constipation 06/15/19 024 Inactive pregabalin 100 mg capsule RxNorm: 372988 Take 1 Capsule(s) Oral QAM every morning 04/27/20 024 Inactive Levemir FlexPen 100 unit/mL (3 mL) solution subcutaneous insulin pen RxNorm: 795092 Inject 30 Unit(s) Subcutaneous BID 04/27/20 024 Inactive rosuvastatin 40 mg tablet RxNorm: 902664 Take 1 Tablet(s) Oral QPM every evening 04/16/20 024 Inactive D/C rosuvastatin 20mg venlafaxine ER 75 mg capsule,extended release 24 hr RxNorm: 531895 Take 3 Capsule(s) Oral QD 04/14/20 023 Inactive pregabalin 100 mg capsule RxNorm: 935872 Take 1 Capsule(s) Oral QAM every morning [...] strip clotrimazole 1 % topical cream RxNorm: 147610 Take apply topically to abdominal folds twice daily for 14 days 03/12/20 024 Inactive Ozempic 1 mg/dose (4 mg/3 mL) subcutaneous pen injector RxNorm: 5756632 Inject 1 Milligram(s) Subcutaneous QW once a week 03/11/20 23 023 Inactive rosuvastatin 20 mg tablet RxNorm: 355586 Take 1 Tablet(s) Oral QD 02/26/20 23 023 Inactive d/c pravastatin 80mg Ozempic 1 mg/dose (4 mg/3 mL) subcutaneous pen injector RxNorm: 1819166 Inject 1 Milligram(s) Subcutaneous QW once a week 02/20/20 23 023 Inactive pregabalin 150 mg capsule RxNorm: 440683 Take 1 Capsule(s) Oral HS at bed time 02/19/20 23 023 Inactive pregabalin 100 mg capsule RxNorm: 759502 Take 1 Capsule(s) Oral QAM every morning 02/18/20 23 023 Inactive venlafaxine ER 75 mg capsule,extended release 24 hr RxNorm: 384043 Take 3 Capsule(s) Oral QD 02/04/20 23 023 Inactive FreeStyle Chema 2 Sensor kit RxNorm: use as directed 02/04/20 23 023 Inactive FreeStyle Chema 2 Sensor kit RxNorm: use as directed 02/04/20 23 024 Inactive fluconazole 150 mg tablet RxNorm: 029426 Take 1 Tablet(s) Oral on day 3 and on day 6 02/03/20 23 024 Inactive chlorthalidone 25 mg tablet RxNorm: 989356 Take 1 Tablet(s) Oral QAM every morning 02/03/20 23 No Stop Date Active venlafaxine ER 150 mg capsule,extended release 24 hr RxNorm: 458784 Take 1 Capsule(s) Oral QD 02/03/20 23 023 Inactive acetaminophen 500 mg tablet RxNorm: 218980 1 TABLET ORALLY 3 TIMES DAILY (MAX APAP:4GM/24HR) 12/15/19 23 023 Inactive clotrimazole 1 % topical cream RxNorm: 682750 apply 1g topically to top of feet and in between toes BID 12/09/19 23 023 Inactive potassium chloride ER 20 mEq tablet,extended release RxNorm: 187486 Take 1 Tablet(s) Oral BID 12/09/19 23 024 Inactive d/c 20mEq once daily (sent from hospital) nystatin 100,000 unit/gram topical powder RxNorm: 254841 APPLY TO AFFECTED AREAS TOPICALLY 2 TIMES DAILY 11/21/19 23 023 Inactive Nystop 100,000 unit/gram topical powder RxNorm: 913636 Apply to abd folds, under breasts and L side of groin Topical BID x 14 days, then BID PRN 11/20/19 023 Inactive dx: yeast dermatitis [place] Ultra Strength 4 %-30 %-10 % topical cream RxNorm: 627960 Apply 1 Gram(s) Topical QID PRN to feet and legs for neuropathic pain 11/11/19 024 Inactive clotrimazole 1 % topical cream RxNorm: 373525 Apply 1/2 Gram(s) Topical BID Apply to affected areas of groin, periarea, and abdominal topically 2 times daily 11/10/19 023 Inactive hydrocortisone 2.5 % topical cream RxNorm: 106745 Apply 1/2 Gram(s) Topical BID as needed 11/10/19 024 Inactive Levemir FlexPen 100 unit/mL (3 mL) solution subcutaneous insulin pen RxNorm: 734529 Inject 30 Unit(s) Subcutaneous BID 10/07/19 023 Inactive Humulin R U-500 (Concentrated) Insulin 500 unit/mL subcutaneous soln RxNorm: 451224 Inject 100 Unit(s) Subcutaneous TID 10/07/19 024 Inactive Ozempic 0.25 mg or 0.5 mg (2 mg/3 mL) subcutaneous pen injector RxNorm: 3283364 Inject 1/2 Milligram(s) Subcutaneous QW once a week 10/07/19 024 Inactive aripiprazole 15 mg tablet RxNorm: 783543 1/2 TAB (7.5MG) ORALLY DAILY (DX:MAJOR DEPRESSIVE DISORDER) 09/23/19 023 Inactive Accu-Chek Guide test strips RxNorm: Use 1 Test Strip QID 09/15/19 023 Inactive ok to substitute with any covered alternative test strip Lancets,Thin 28 gauge RxNorm: Use 1 as directed QID 09/15/19 23 023 Inactive torsemide 20 mg tablet RxNorm: 869857 Take 1 Tablet(s) Oral BID 09/09/19 024 Inactive d/c once daily dosing carvedilol 25 mg tablet RxNorm: 380094 Take 1 Tablet(s) Oral QD 08/25/19 024 Inactive pregabalin 150 mg capsule RxNorm: 985317 1 Capsule(s) Oral HS at bed time 08/18/19 23 023 Inactive pregabalin 100 mg capsule RxNorm: 522335 1 Capsule(s) Oral QAM every morning 08/18/19 23 023 Inactive carvedilol 25 mg tablet RxNorm: 549856 1 Tablet(s) Oral QD 07/28/19 23 023 Inactive lisinopril 20 mg tablet RxNorm: 203113 Give 1 Tablet(s) Oral QD 07/28/19 23 023 Inactive Lyrica 150 mg capsule RxNorm: 585426 Take 1 Capsule(s) Oral QHS every night at bedtime 07/19/19 023 Inactive d/c 100mg dose Diflucan 150 mg tablet RxNorm: 354255 Take 1 Tablet(s) Oral QD repeat on day 3 and 6 07/19/19 023 Inactive pregabalin 100 mg capsule RxNorm: 954619 Take 1 Capsule(s) Oral QAM every morning 07/19/19 23 023 Inactive gatifloxacin 0.5 % eye drops RxNorm: 423320 Instill 1 Drop(s) as directed TID Instill 1 drop in to affected eye(s) starting 1 day prior to surgery and continue until gone (do not exceed 4 weeks). 07/13/19 23 023 Inactive carvedilol 25 mg tablet RxNorm: 412030 2 Tablet(s) Oral BID 07/13/19 23 023 Inactive Humulin R Regular U-100 Insulin 100 unit/mL injection solution RxNorm: 809291 85 Unit(s) Injection TID 07/13/19 23 023 Inactive ketorolac 0.5 % eye drops RxNorm: 671387 Instill 1 Drop(s) as directed QID Instill 1 drop into affected eye(s) 4 times daily starting 1 day prior to surgery and continue until gone (do not exceed 4 weeks). 07/13/19 23 023 Inactive Diflucan 150 mg tablet RxNorm: 238176 Take 1 Tablet(s) Oral QD repeat on day 3 and 6 06/30/19 023 Inactive Accu-Chek Guide test strips RxNorm: Use 1 Test Strip QID Use 1 test strip to monitor blood glucose 4 times daily and as needed. Dx:E11.42. 06/23/19 023 Inactive ok to substitute with any covered alternative test strip dextromethorphan-gu aifenesin 10 mg-100 mg/5 mL oral liquid RxNorm: 044527 Take 10 Milliliter(s) Oral every 4 hours as needed for cough 06/19/19 023 Inactive dextromethorphan-gu aifenesin 10 mg-100 mg/5 mL oral liquid RxNorm: 707925 Take 10 Milliliter(s) Oral every 4 hours as needed for cough 06/19/19 023 Inactive Lyrica 150 mg capsule RxNorm: 900648 Take 1 Capsule(s) Oral QHS every night at bedtime 06/18/19 023 Inactive d/c 100mg dose aripiprazole 15 mg tablet RxNorm: 569047 1/2 TAB (7.5MG) ORALLY DAILY (DX:MAJOR DEPRESSIVE DISORDER) 06/05/19 023 Inactive pregabalin 100 mg capsule RxNorm: 049540 1 Capsule(s) Oral QAM every morning 06/02/19 023 Inactive Banophen 50 mg capsule RxNorm: 9553226 Take 1 Capsule(s) Oral Q6H every 6 hours as needed 05/19/19 23 No Stop Date Active Novolog Flexpen U-100 Insulin aspart 100 unit/mL (3 mL) subcutaneous RxNorm: 5128062 Inject 10 Unit(s) Subcutaneous QHS every night at bedtime with nighttime snack 04/08/20 22 022 Inactive Novolog Flexpen U-100 Insulin aspart 100 unit/mL (3 mL) subcutaneous RxNorm: 6652317 Inject 42 Unit(s) Subcutaneous TID in addition to sliding scale 04/08/20 022 Inactive d/c 36u albuterol sulfate HFA 90 mcg/actuation aerosol inhaler RxNorm: 9536020 Take 2 Puff(s) Inhalation Q4H every four hours as needed as needed for SOB, cough, or wheezing 04/07/20 030 Active Banophen 50 mg capsule RxNorm: 8875966 Take 1 Capsule(s) Oral Q6H every 6 hours as needed 04/06/20 023 Inactive diphenhydramine 50 mg tablet RxNorm: 6934176 Take 1 Tablet(s) Oral Q6H every 6 hours as needed 04/06/20 022 Inactive diphenhydramine 50 mg tablet RxNorm: 0116686 1 Tablet(s) Oral Q6H every 6 hours as needed 04/06/20 022 Inactive Abilify 15 mg tablet RxNorm: 194843 1/2 Tablet(s) Oral QD 03/10/20 023 Inactive Shingrix (PF) 50 mcg/0.5 mL intramuscular suspension, kit RxNorm: 3193443 Administer 1/2 Milliliter(s) Intramuscular QD one time shingrix step 2 ( step 1 given 11/04/21) WITH needle - Nursing please administer upon arrival and once administered post a bridge message with 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 of administration, flight operations manager, expiration date, and lot# so we can update [facility] 02/18/20 22 022 Inactive dispense with needle Shingrix (PF) 50 mcg/0.5 mL intramuscular suspension, kit RxNorm: 9911239 Administer 1/2 Milliliter(s) Intramuscular QD one time shingrix step 2 ( step 1 given 11/04/21) WITH needle - Nursing please administer upon arrival and once administered post a bridge message with date of administration, flight operations manager, expiration date, and lot# so we can update [facility] 02/18/20 22 022 Inactive dispense with needle polyethylene glycol 3350 17 gram/dose oral powder RxNorm: 390134 Take 17=1 capful Gram(s) Oral QD mix with 4-8oz of liquid 01/08/20 22 023 Inactive take this in addition to BID prn order Lyrica 100 mg capsule RxNorm: 045267 Take 1 Capsule(s) Oral QAM every morning 01/08/20 22 022 Inactive d/c 50mg dose acetaminophen 500 mg tablet RxNorm: 696928 Take 1 Tablet(s) Oral TID 01/08/20 22 022 Inactive d/c PRN order Lyrica 150 mg capsule RxNorm: 770662 Take 1 Capsule(s) Oral QHS every night at bedtime 01/08/20 22 023 Inactive d/c 100mg dose Abilify 5 mg tablet RxNorm: 359561 Take 1 Tablet(s) Oral QD take 1 tab po QD #30 refill 5 dx: MDD 12/12/19 22 022 Inactive Abilify 5 mg tablet RxNorm: 849769 Take 1 Tablet(s) Oral QD take 1 tab po QD #30 refill 5 dx: MDD 12/12/19 22 022 Inactive Novolog Flexpen U-100 Insulin aspart 100 unit/mL (3 mL) subcutaneous RxNorm: 2010935 Inject 42 Unit(s) Subcutaneous TID in addition to sliding scale 12/10/19 22 022 Inactive d/c 36u chlorthalidone 25 mg tablet RxNorm: 540616 Take 1 Tablet(s) Oral QAM every morning 12/10/19 22 023 Inactive pregabalin 50 mg capsule RxNorm: 273562 Take 1 Capsule(s) Oral QAM every morning 11/12/19 22 022 Inactive tetanus-diphtheria toxoids-Td 2 Lf unit-2 Lf unit/0.5 mL IM suspension RxNorm: 139 Take 0.5 Miscellaneous Intramuscular 11/12/19 22 022 Inactive need tdap - nursing to administer upon arrival pregabalin 50 mg capsule RxNorm: 266831 Take 1 Capsule(s) Oral QAM every morning 10/16/19 22 022 Inactive pregabalin 50 mg capsule RxNorm: 557985 Take 1 Capsule(s) Oral QAM every morning 10/16/19 22 022 Inactive pregabalin 50 mg capsule RxNorm: 380311 1 Capsule(s) Oral QAM every morning 10/15/19 22 022 Inactive Shingrix (PF) 50 mcg/0.5 mL intramuscular suspension, kit RxNorm: 5406265 Administer 1/2 Milliliter(s) Intramuscular one time Nursing please administer upon arrival and once administered post a bridge message with date of administration, flight operations manager, expiration date, and lot# so we can update [facility]. 10/09/19 22 022 Inactive shingrix step 1 Shingrix (PF) 50 mcg/0.5 mL intramuscular suspension, kit RxNorm: 5918423 Administer 1/2 Milliliter(s) Intramuscular one time Nursing please administer upon arrival and once administered post a bridge message with date of administration, flight operations manager, expiration date, and lot# so we can update [facility]. 10/09/19 22 022 Inactive shingrix step 1 cholecalciferol (vitamin D3) 1,250 mcg (50,000 unit) capsule RxNorm: 178526 Take 1 Capsule(s) Oral QW once a [...] aspart 100 unit/mL (3 mL) subcutaneous RxNorm: 6549570 Inject 10 Unit(s) Subcutaneous QHS every night at bedtime with nighttime snack 10/08/19 22 022 Inactive Shingrix (PF) 50 mcg/0.5 mL intramuscular suspension, kit RxNorm: 1387218 ADMINISTER 2-DOSE SERIES PER CDC GUIDELINES 10/08/19 22 022 Active Shingrix (PF) 50 mcg/0.5 mL intramuscular suspension, kit RxNorm: 1588552 ADMINISTER 2-DOSE SERIES PER CDC GUIDELINES 10/08/19 22 022 Inactive Novolog Flexpen U-100 Insulin aspart 100 unit/mL (3 mL) subcutaneous RxNorm: 8451736 Inject 36 Unit(s) Subcutaneous TID in addition to sliding scale 10/08/19 Inactive Novofine Autocover 30 gauge x 1/3 needle RxNorm: Use 1 Miscellaneous UD as directed Use 1 needle as directed to administer insulin 5 times a day Dx:E11.42. 10/03/19 22 Inactive ok to substitute with any covered alternative pen needle benzoyl peroxide 10 % topical cleanser RxNorm: 444561 Apply 1 Application Topical QD apply to face, wash rinse and dry once daily (may change to QOD if drying) 08/19/19 022 Inactive (%covered by insurance) #60ml refill 11 dx: acne benzoyl peroxide 10 % topical cleanser RxNorm: 364426 Apply 1 Application Topical QD apply to face, wash rinse and dry once daily (may change to QOD if drying) 08/19/19 022 Inactive (%covered by insurance) #60ml refill 11 dx: acne benzoyl peroxide 10 % topical cleanser RxNorm: 254410 Apply 1 Application Topical QD apply to face, wash rinse and dry once daily (may change to QOD if drying) 08/19/19 022 Inactive (%covered by insurance) #60ml refill 11 dx: acne Lyrica 50 mg capsule RxNorm: 805656 Take 1 Capsule(s) Oral QAM every morning Take 1 capsule by mouth once daily 08/19/19 22 022 Inactive benzoyl peroxide 10 % topical cleanser RxNorm: 461026 Apply 1 Application Topical QD apply to face, wash rinse and dry once daily (may change to QOD if drying) 08/19/19 022 Inactive (%covered by insurance) #60ml refill 11 dx: acne Lyrica 100 mg capsule RxNorm: 023209 Take 1 Capsule(s) Oral QHS every night at bedtime Take 1 capsule by mouth once daily at bedtime 08/19/19 22 022 Inactive Lyrica 100 mg capsule RxNorm: 921201 Take 1 Capsule(s) Oral QHS every night at bedtime Take 1 capsule by mouth once daily at bedtime 08/16/19 22 022 Inactive Lyrica 50 mg capsule RxNorm: 359887 Take 1 Capsule(s) Oral QAM every morning Take 1 capsule by mouth once daily 08/16/19 22 022 Inactive Levemir FlexTouch U-100 Insulin 100 unit/mL (3 mL) subcutaneous pen RxNorm: 507603 Inject 86 Unit(s) Subcutaneous BID 08/05/19 22 022 Inactive d/c 83units BID Lyrica 100 mg capsule RxNorm: 361440 Take 1 Capsule(s) Oral QHS every night at bedtime Take 1 capsule by mouth once daily at bedtime 07/14/19 22 022 Inactive Lyrica 50 mg capsule RxNorm: 108424 Take 1 Capsule(s) Oral QAM every morning Take 1 capsule by mouth once daily 07/14/19 22 022 Inactive Levemir FlexTouch U-100 Insulin 100 unit/mL (3 mL) subcutaneous pen RxNorm: 976080 Inject 83 Unit(s) Subcutaneous BID 07/08/19 22 [...] test strip hydralazine 50 mg tablet RxNorm: 945316 Take 1 Tablet(s) Oral QID 05/05/20 21 022 Inactive venlafaxine ER 225 mg tablet,extended release 24 hr RxNorm: 035672 Take 1 Tablet(s) Oral QD 05/05/20 21 021 Inactive venlafaxine ER 225 mg tablet,extended release 24 hr RxNorm: 595202 Take 1 Tablet(s) Oral QD 05/05/20 022 Inactive isosorbide mononitrate ER 30 mg tablet,extended release 24 hr RxNorm: 094577 Take 1 Tablet(s) Oral QD 05/05/20 024 Inactive hydralazine 50 mg tablet RxNorm: 608581 Take 1 Tablet(s) Oral QID 05/05/20 21 Inactive aspirin 81 mg tablet,delayed release RxNorm: 184180 Take 1 Tablet(s) Oral QD 03/31/20 022 Inactive Vitamin D2 1,250 mcg (50,000 unit) capsule RxNorm: 3227205 Take 1 Capsule(s) Oral QW once a week x 12 weeks 03/31/20 022 Inactive Vitamin D2 1,250 mcg (50,000 unit) capsule RxNorm: 0636623 Take 1 Capsule(s) Oral QW once a week 03/31/20 021 Inactive Zetia 10 mg tablet RxNorm: 356171 Take 1 Tablet(s) Oral QD 03/31/20 024 Inactive Zetia 10 mg tablet RxNorm: 168811 Take 1 Tablet(s) Oral QD 03/31/20 21 021 Inactive hydralazine 25 mg tablet RxNorm: 605071 Take 1 Tablet(s) Oral QID 03/31/20 21 021 Inactive hydralazine 25 mg tablet RxNorm: 595816 Take 1 Tablet(s) Oral QID 03/31/20 021 Inactive hydralazine 10 mg tablet RxNorm: 559521 Take 1 Tablet(s) Oral QID 03/03/20 021 Inactive cephalexin 500 mg tablet RxNorm: 354853 Take 1 Tablet(s) Oral QID 02/27/20 021 Inactive cephalexin 500 mg tablet RxNorm: 513191 Take 1 Tablet(s) Oral QID 02/27/20 021 Inactive lisinopril 40 mg tablet RxNorm: 542182 Take 1 Tablet(s) Oral QD 02/11/20 023 Inactive Eliquis 5 mg tablet RxNorm: 7122967 Take 1 Tablet(s) Oral BID 01/05/20 21 022 Inactive Eliquis 5 mg tablet RxNorm: 5874703 Take 2 Tablet(s) Oral QD 01/01/20 21 021 Inactive Lyrica 50 mg capsule RxNorm: 081408 Take 1 Capsule(s) Oral QAM every morning 12/24/19 21 021 Inactive Lyrica 100 mg capsule RxNorm: 535952 Take 1 Capsule(s) Oral QHS every night at bedtime 12/24/19 021 Inactive clotrimazole 1 % topical cream RxNorm: 138834 Apply to right foot and toes Topical BID 12/04/19 21 023 Inactive metoprolol succinate ER 200 mg tablet,extended release 24 hr RxNorm: 465771 Take 1 Tablet(s) Oral QD 12/04/19 21 023 Inactive ciprofloxacin 500 mg tablet RxNorm: 381662 Take 1 Tablet(s) Oral QD 11/30/19 21 021 Inactive DX ofloxacin otic drops Accu-Chek Guide test strips RxNorm: USE 1 TO CHECK GLUCOSE 4 TIMES DAILY AND NEEDED 11/15/19 21 023 Inactive Blood Glucose Test strips RxNorm: Use 1 Test Strip QID at PRN 11/05/19 21 023 Inactive E11.42 lisinopril 30 mg tablet RxNorm: 449197 Take 1 Tablet(s) Oral QD 10/30/19 21 021 Inactive lisinopril 20 mg tablet RxNorm: 471124 Take 1 Tablet(s) Oral QD 10/23/19 21 021 Inactive lisinopril 20 mg tablet RxNorm: 722114 Take 1 Tablet(s) Oral QD 10/23/19 21 021 Inactive lisinopril 10 mg tablet RxNorm: 249497 Take 1 Tablet(s) Oral QD 10/02/19 021 Inactive icosapent ethyl 1 gram capsule RxNorm: 1209620 Take 2 Capsule(s) (2 gm) Oral BID with meals 09/12/19 21 024 Inactive Okay to dispense one 2gm tab if you have that available. icosapent ethyl 1 gram capsule RxNorm: 0427112 Take 2 Capsule(s) Oral BID 09/12/19 21 021 Inactive Okay to dispense one 2gm tab if you have that available. amlodipine 10 mg tablet RxNorm: 408016 Take 1 Tablet(s) Oral QD 09/04/19 022 Inactive aspirin 81 mg tablet,delayed release RxNorm: 276244 Take 1 Tablet(s) Oral QD 09/04/19 21 021 Inactive Levemir FlexTouch U-100 Insulin 100 unit/mL (3 mL) subcutaneous pen RxNorm: 644451 Inject 150 Unit(s) Subcutaneous BID 09/04/19 21 022 Inactive venlafaxine ER 150 mg tablet,extended release 24 hr RxNorm: 941462 Take 1 Tablet(s) Oral QD 09/04/19 21 021 Inactive clotrimazole-betame thasone 1 %-0.05 % topical cream RxNorm: 550370 Apply to rash on red area on left abdomen/chest Topical BID 08/10/19 21 021 Inactive amlodipine 5 mg tablet RxNorm: 547070 Take 1 Tablet(s) Oral QD 07/31/19 Inactive cephalexin 500 mg tablet RxNorm: 270688 Take 1 Tablet(s) Oral BID BID - Twice Daily 07/31/19 Inactive Start 08/01/20 pantoprazole 40 mg tablet,delayed release RxNorm: 422349 Take 1 Tablet(s) Oral QAM every morning 07/08/19 Inactive senna 8.6 mg tablet RxNorm: 376074 Take 1 Tablet(s) Oral QD 07/08/19 022 Inactive carbamazepine 200 mg tablet RxNorm: 865252 Take 1 Tablet(s) Oral BID 07/08/19 Inactive clopidogrel 75 mg tablet RxNorm: 219412 Take 1 Tablet(s) Oral QD 07/08/19 021 Inactive Blood Glucose Test strips RxNorm: Use 1 Test Strip QID at PRN 07/08/19 Inactive E11.42 Novolog Flexpen U-100 Insulin aspart 100 unit/mL (3 mL) subcutaneous RxNorm: 0984139 Administer per sliding scale Milliliter(s) Subcutaneous TID 151-200: 10 u; 201-250: 20 u; 251-300: 30 u; 301-350: 40 u; 351-400: 50 u. 07/08/19 Inactive lisinopril 5 mg tablet RxNorm: 564589 Take 1 Tablet(s) Oral QD 07/08/19 Inactive Novolog Flexpen U-100 Insulin aspart 100 unit/mL (3 mL) subcutaneous RxNorm: 5739438 Inject 85 Unit(s) Subcutaneous TID 07/08/19 022 Inactive pravastatin 80 mg tablet RxNorm: 663752 Take 1 Tablet(s) Oral QHS every night at bedtime 07/08/19 023 Inactive clotrimazole 1 % topical cream RxNorm: 996336 Apply to bilateral groin areas Topical BID 07/08/19 21 022 Inactive metoprolol succinate ER 200 mg tablet,extended release 24 hr RxNorm: 850779 Take 1 Tablet(s) Oral QD 07/08/19 21 021 Inactive Vitamin D3 25 mcg (1,000 unit) tablet RxNorm: 612752 Take 1 Tablet(s) Oral QD 07/08/19 Inactive isosorbide dinitrate 30 mg tablet RxNorm: 706396 Take 1 Tablet(s) Oral QD 07/08/19 021 Inactive Levemir FlexTouch U-100 Insulin 100 unit/mL (3 mL) subcutaneous pen RxNorm: 555917 Inject 140 Unit(s) Subcutaneous BID 07/08/19 021 Inactive torsemide 20 mg tablet RxNorm: 649731 Take 1 Tablet(s) Oral QD 07/08/19 023 Inactive venlafaxine 75 mg tablet RxNorm: 767918 Take 1 Tablet(s) Oral QD 07/08/19 021 Inactive acetaminophen 500 mg tablet RxNorm: 660802 Take 1 Tablet(s) Oral TID as needed for headache 06/18/19 021 Inactive acetaminophen 500 mg tablet RxNorm: 008902 Take 1 Tablet(s) Oral TID as needed for headache 06/18/19 021 Inactive Lyrica 100 mg capsule RxNorm: 273499 Take 1 Capsule(s) Oral QHS every night at bedtime 06/11/19 021 Inactive Lyrica 50 mg capsule RxNorm: 035488 Take 1 Capsule(s) Oral QAM every morning 06/10/19 021 Inactive hydrocortisone 2.5 % topical cream RxNorm: 838722 Apply to bilateral groin creases Topical BID 05/15/20 20 021 Inactive clotrimazole 1 % topical cream RxNorm: 756730 Apply to bilateral groin areas Topical BID 05/15/20 20 021 Inactive Lyrica 50 mg capsule RxNorm: 582510 Take 1 Capsule(s) Oral QAM every morning 05/14/20 20 020 Inactive Lyrica 100 mg capsule RxNorm: 245642 Take 1 Capsule(s) Oral QHS every night [...] Inactive Nystop 100,000 unit/gram topical powder RxNorm: 055984 Apply to abd folds, under breasts and L side of groin Topical BID x 14 days, then BID PRN 04/08/20 20 Inactive dx: yeast dermatitis Lyrica 100 mg capsule RxNorm: 949139 Take 1 Capsule(s) Oral QHS every night at bedtime 03/13/20 20 Inactive Lyrica 50 mg capsule RxNorm: 749153 Take 1 Capsule(s) Oral QAM every morning 03/13/20 20 Inactive ketoconazole 2 % shampoo RxNorm: 081639 Apply Topical two times a week with showers 03/11/20 20 Inactive cholecalciferol (vitamin D3) 50 mcg (2,000 unit) tablet RxNorm: 742348 Take 1 Tablet(s) Oral QD 03/11/20 20 021 Inactive Zetia 10 mg tablet RxNorm: 997672 Take 1 Tablet(s) Oral QD 03/07/20 20 021 Inactive Zetia 10 mg tablet RxNorm: 358676 Take 1 Tablet(s) Oral QD 03/07/20 20 020 Inactive Lyrica 50 mg capsule RxNorm: 171388 Take 1 Capsule(s) Oral QAM every morning 02/15/20 20 Inactive Lyrica 100 mg capsule RxNorm: 370790 Take 1 Capsule(s) Oral QHS every night at bedtime 02/15/20 20 Inactive Lyrica 100 mg capsule RxNorm: 801947 Take 1 Capsule(s) Oral QHS every night at bedtime 02/15/20 20 020 Inactive Lyrica 50 mg capsule RxNorm: 735943 Take 1 Capsule(s) Oral QAM every morning 02/15/20 Inactive metoprolol succinate ER 200 mg tablet,extended release 24 hr RxNorm: 705728 Take 1 Tablet(s) Oral QD 08/12/19 23 Active loperamide 2 mg capsule RxNorm: 124696 Take 1 Capsule(s) Oral QID as needed 06/12/19 22 Active hydralazine 50 mg tablet RxNorm: 229966 Take 1 Tablet(s) Oral QID 08/12/19 23 Active Soft Touch Lancets RxNorm: miscellaneous 03/04/20 24 Active venlafaxine ER 75 mg capsule,extended release 24 hr RxNorm: 710436 Take 3 Capsule(s) Oral QD 06/12/19 22 023 Inactive polyethylene glycol 3350 17 gram/dose oral powder RxNorm: 883776 Take 17=1 capful Gram(s) Oral BID as needed mix with 4-8oz of liquid 06/12/19 22 024 Inactive icosapent ethyl 1 gram capsule RxNorm: 8906917 Take 2 Capsule(s) (2 gm) Oral BID with meals 10/07/19 23 023 Inactive Okay to dispense one 2gm tab if you have that available. Levemir FlexTouch U-100 Insulin 100 unit/mL (3 mL) subcutaneous pen RxNorm: 330037 Inject 80 Unit(s) Subcutaneous BID 07/14/19 23 023 Inactive Novolog Flexpen U-100 Insulin aspart 100 unit/mL (3 mL) subcutaneous RxNorm: 2974046 Insert 30 Unit(s) Subcutaneous TID with meals [...] [facility] WPt[facility]: [phone], [address] [id number] [place] Referral Records Received 09/21/2022 Referral: [facility] [place]: [phone] [id number] [place] Referral Completed 05/28/2021 Referral: General Cardiology [...] Sister Jyotsna involved in his care cell# [phone] Guardian: Giulia (tapan met in person 09/01/21), [...]
--- OUTSIDE RECORDS SUMMARY | 2024-03-09 01:41 | XMS_ITS | CCD ---
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 Provider Leona vailable Arpit ARLENParker Harrison Chronic Care Management U navailable Summary Purpose DataExchange Insurance Providers Payer name Policy type / Coverage type Covered alliance party ID Effective Begin Date Effective End Date Medicare [place] Medicare Part B [id number] Unknown Unknown [place] Medicare Part B [id number] Unknown Unknown Family history Sister Brittany Suggs Diagnosis Age At Onset No Family Disease Entered N/A Runs in the family Diagnosis Age At Onset No Known Diseases N/A Sister Blanka Mcduffie Diagnosis Age At Onset No Family Disease Entered N/A Social History Social History Element Codes Description Effec tive Dates Tobacco history SNOMED CT: 025509798 Never smoker 01/16 Sexually Active? 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 Humulin R U-500 (Concentrated) Insulin 500 unit/mL subcutaneous soln RxNorm: 788865 Inject 100 Unit(s) Subcutaneous AC before meals [...] PRN) to be use with new Accu [place] meter 03/04/20 Inactive ok to substitute with any covered alternative test strip nystatin 100,000 unit/gram topical powder RxNorm: 233634 Apply 1 Application Topical BID as needed [...] (Concentrated) Insulin 500 unit/mL subcutaneous soln RxNorm: 733848 Inject 100 Unit(s) Subcutaneous TID 02/17/20 24 024 Inactive Humulin R U-500 (Concentrated) Insulin 500 unit/mL subcutaneous soln RxNorm: 994427 Inject 100 Unit(s) Subcutaneous TID 02/10/20 24 024 Inactive Basaglar KwikPen U-100 Insulin 100 unit/mL (3 mL) subcutaneous RxNorm: 6884666 Inject 30 Unit(s) Subcutaneous BID 02/10/20 024 Inactive Please dispense one month supply. pregabalin 100 mg capsule RxNorm: 527479 Take 1 Capsule(s) Oral QAM every morning 02/07/20 24 024 Active isosorbide mononitrate ER 60 mg tablet,extended release 24 hr RxNorm: 368460 Take 1 Tablet(s) Oral QD 02/01/20 24 025 Active aripiprazole 15 mg tablet RxNorm: 455894 Take 1/2 Tablet(s) Oral QD 02/01/20 24 025 Active torsemide 20 mg tablet RxNorm: 804689 1 TAB ORALLY DAILY (DX: EDEMA) 01/27/20 No Stop Date Active potassium chloride ER 20 mEq tablet,extended release(part/cryst) RxNorm: 9191415 2 TABS (40MEQ) ORALLY TWICE DAILY (DX: HYPOKALEMIA) 01/27/20 No Stop Date Active cephalexin 500 mg capsule RxNorm: 454879 Take 1 Capsule(s) Oral QID 12/17/19 24 024 Inactive cephalexin 500 mg capsule RxNorm: 807712 Take 1 Capsule(s) Oral QID 12/17/19 24 024 Inactive acetaminophen 500 mg tablet RxNorm: 562280 (MAX APAP:4GM/24HR) Take 1 Tablet(s) Oral TID as needed for pain 12/10/19 24 024 Active torsemide 20 mg tablet RxNorm: 068449 Take 1 Tablet(s) Oral QD 10/26/19 24 [...] %-0.3 % drops in a dropperette RxNorm: 079846 Apply 1-2 Drop(s) Both eyes BID as needed 09/28/19 24 Active erythromycin 5 mg/gram (0.5 %) eye ointment RxNorm: 303951 Apply 1 Application Both eyes QHS every night at bedtime Instill ~1 cm ribbon into affected eye 09/28/19 24 Inactive Artificial Tears (PF) 0.1 %-0.3 % drops in a dropperette RxNorm: 174877 Apply 1-2 Drop(s) Both eyes BID as needed 09/28/19 24 Inactive erythromycin 5 mg/gram (0.5 %) eye ointment RxNorm: 132700 Apply 1 Application Both eyes QHS every night at bedtime Instill ~1 cm ribbon into affected eye 09/28/19 24 Inactive acetaminophen 500 mg tablet RxNorm: 203759 (MAX APAP:4GM/24HR) Take 1 Tablet(s) Oral TID as needed for pain 09/24/19 Inactive carvedilol 25 mg tablet RxNorm: 436779 Take 1 Tablet(s) Oral QD 09/08/19 24 No Stop Date Active pregabalin 100 mg capsule RxNorm: 107066 Take 1 Capsule(s) Oral QAM every morning 09/07/19 24 024 Inactive rosuvastatin 40 mg tablet RxNorm: 937292 Take 1 Tablet(s) Oral QPM every evening 07/13/19 24 No Stop Date Active ezetimibe 10 mg tablet RxNorm: 348968 Take 1 Tablet(s) Oral QD 07/13/19 24 No Stop Date Active bisacodyl 10 mg rectal suppository RxNorm: 047031 Insert 1 Suppository Rectal QD as needed 07/13/19 24 No Stop Date Active polyethylene glycol 3350 17 gram/dose oral powder RxNorm: 584096 Take 17 Gram(s) Oral BID as needed mix in 4-8ox water 07/13/19 24 No Stop Date Active ketoconazole 2 % shampoo RxNorm: 254189 Apply 1 Application Topical UD as directed 07/13/19 24 No Stop Date Active Ozempic 1 mg/dose (4 mg/3 mL) subcutaneous pen injector RxNorm: 3957398 Inject 1 Milligram(s) Subcutaneous QW once a week 07/13/19 24 No Stop Date Active Guaifenesin AC 10 mg-100 mg/5 mL oral liquid RxNorm: 507487 Take 10 Milliliter(s) Oral Q4H every four hours as needed 07/13/19 24 No Stop Date Active ammonium lactate 12 % topical cream RxNorm: 264870 Apply 1 Application Topical BID 07/13/19 24 No Stop Date Active hydrocortisone 2.5 % topical cream RxNorm: 351288 Apply 1 Application Topical BID as needed 07/13/19 24 No Stop Date Active rosuvastatin 20 mg sprinkle capsule RxNorm: 7233181 Take 1 Capsule(s) Oral QD 07/13/19 24 No Stop Date Active Vascepa 1 gram capsule RxNorm: 5332722 Take 2 Capsule(s) Oral BID 07/13/19 24 No Stop Date Active venlafaxine ER 75 mg capsule,extended release 24 hr RxNorm: 113159 Take 3 Capsule(s) Oral QD 07/13/19 24 No Stop Date Active aripiprazole 15 mg tablet RxNorm: 241252 Take 1/2 Tablet(s) Oral QD 07/13/19 24 024 Inactive isosorbide mononitrate ER 60 mg tablet,extended release 24 hr RxNorm: 580251 Take 1 Tablet(s) Oral QD 07/13/19 24 024 Inactive Basaglar KwikPen U-100 Insulin 100 unit/mL (3 mL) subcutaneous RxNorm: 2283318 Inject 30U SubQ twice daily 07/07/19 24 024 Inactive Please dispense one month supply. Tusharagldestin MendenhallPen U-100 Insulin 100 unit/mL (3 mL) subcutaneous RxNorm: 1005038 Inject 30U SubQ twice daily 07/07/19 24 024 Inactive Please dispense one month supply. pregabalin 150 mg capsule RxNorm: 535391 Take 1 Capsule(s) Oral QHS every night at bedtime 07/05/19 24 024 Inactive pregabalin 150 mg capsule RxNorm: 356985 Take 1 Capsule(s) Oral QHS every night at bedtime 07/05/19 24 024 Inactive polyethylene glycol 3350 17 gram/dose oral powder RxNorm: 142778 Take 1 Packet Oral QD as needed (1 packet = 17g) mix with 4-8oz of liquid 06/15/19 24 024 Inactive bisacodyl 10 mg rectal suppository RxNorm: 979171 Insert one suppository per rectum once daily as needed for constipation 06/15/19 24 024 Inactive bisacodyl 10 mg rectal suppository RxNorm: 701805 Insert one suppository per rectum once daily as needed for constipation 06/15/19 24 024 Inactive pregabalin 100 mg capsule RxNorm: 508086 Take 1 Capsule(s) Oral QAM every morning 04/27/20 23 024 Inactive Levemir FlexPen 100 unit/mL (3 mL) solution subcutaneous insulin pen RxNorm: 088506 Inject 30 Unit(s) Subcutaneous BID 04/27/20 23 024 Inactive rosuvastatin 40 mg tablet RxNorm: 691531 Take 1 Tablet(s) Oral QPM every evening 04/16/20 23 024 Inactive D/C rosuvastatin 20mg venlafaxine ER 75 mg capsule,extended release 24 hr RxNorm: 969689 Take 3 Capsule(s) Oral QD 04/14/20 23 023 Inactive pregabalin 100 mg capsule RxNorm: 781502 Take 1 Capsule(s) Oral QAM every morning [...] strip clotrimazole 1 % topical cream RxNorm: 532392 Take apply topically to abdominal folds twice daily for 14 days 03/12/20 024 Inactive Ozempic 1 mg/dose (4 mg/3 mL) subcutaneous pen injector RxNorm: 8563870 Inject 1 Milligram(s) Subcutaneous QW once a week 03/11/20 23 023 Inactive rosuvastatin 20 mg tablet RxNorm: 838740 Take 1 Tablet(s) Oral QD 02/26/20 023 Inactive d/c pravastatin 80mg Ozempic 1 mg/dose (4 mg/3 mL) subcutaneous pen injector RxNorm: 7212306 Inject 1 Milligram(s) Subcutaneous QW once a week 02/20/20 23 023 Inactive pregabalin 150 mg capsule RxNorm: 759751 Take 1 Capsule(s) Oral HS at bed time 02/19/20 23 023 Inactive pregabalin 100 mg capsule RxNorm: 378298 Take 1 Capsule(s) Oral QAM every morning 02/18/20 23 023 Inactive venlafaxine ER 75 mg capsule,extended release 24 hr RxNorm: 737144 Take 3 Capsule(s) Oral QD 02/04/20 23 023 Inactive FreeStyle Chema 2 Sensor kit RxNorm: use as directed 02/04/20 23 023 Inactive FreeStyle Chema 2 Sensor kit RxNorm: use as directed 02/04/20 23 024 Inactive fluconazole 150 mg tablet RxNorm: 770045 Take 1 Tablet(s) Oral on day 3 and on day 6 02/03/20 23 024 Inactive chlorthalidone 25 mg tablet RxNorm: 732711 Take 1 Tablet(s) Oral QAM every morning 02/03/20 23 No Stop Date Active venlafaxine ER 150 mg capsule,extended release 24 hr RxNorm: 637673 Take 1 Capsule(s) Oral QD 02/03/20 23 023 Inactive acetaminophen 500 mg tablet RxNorm: 780683 1 TABLET ORALLY 3 TIMES DAILY (MAX APAP:4GM/24HR) 12/15/19 23 023 Inactive clotrimazole 1 % topical cream RxNorm: 892808 apply 1g topically to top of feet and in between toes BID 12/09/19 23 023 Inactive potassium chloride ER 20 mEq tablet,extended release RxNorm: 021179 Take 1 Tablet(s) Oral BID 12/09/19 23 024 Inactive d/c 20mEq once daily (sent from hospital) nystatin 100,000 unit/gram topical powder RxNorm: 035723 APPLY TO AFFECTED AREAS TOPICALLY 2 TIMES DAILY 11/21/19 23 023 Inactive Nystop 100,000 unit/gram topical powder RxNorm: 226565 Apply to abd folds, under breasts and L side of groin Topical BID x 14 days, then BID PRN 11/20/19 23 023 Inactive dx: yeast dermatitis [place] Ultra Strength 4 %-30 %-10 % topical cream RxNorm: 005258 Apply 1 Gram(s) Topical QID PRN to feet and legs for neuropathic pain 11/11/19 23 024 Inactive clotrimazole 1 % topical cream RxNorm: 871637 Apply 1/2 Gram(s) Topical BID Apply to affected areas of groin, periarea, and abdominal topically 2 times daily 11/10/19 23 023 Inactive hydrocortisone 2.5 % topical cream RxNorm: 415119 Apply 1/2 Gram(s) Topical BID as needed 11/10/19 23 024 Inactive Levemir FlexPen 100 unit/mL (3 mL) solution subcutaneous insulin pen RxNorm: 602049 Inject 30 Unit(s) Subcutaneous BID 10/07/19 23 023 Inactive Humulin R U-500 (Concentrated) Insulin 500 unit/mL subcutaneous soln RxNorm: 389851 Inject 100 Unit(s) Subcutaneous TID 10/07/19 23 024 Inactive Ozempic 0.25 mg or 0.5 mg (2 mg/3 mL) subcutaneous pen injector RxNorm: 6845804 Inject 1/2 Milligram(s) Subcutaneous QW once a week 10/07/19 23 024 Inactive aripiprazole 15 mg tablet RxNorm: 124741 1/2 TAB (7.5MG) ORALLY DAILY (DX:MAJOR DEPRESSIVE DISORDER) 09/23/19 23 023 Inactive Accu-Chek Guide test strips RxNorm: Use 1 Test Strip QID 09/15/19 23 023 Inactive ok to substitute with any covered alternative test strip Lancets,Thin 28 gauge RxNorm: Use 1 as directed QID 09/15/19 23 023 Inactive torsemide 20 mg tablet RxNorm: 846842 Take 1 Tablet(s) Oral BID 09/09/19 23 024 Inactive d/c once daily dosing carvedilol 25 mg tablet RxNorm: 994958 Take 1 Tablet(s) Oral QD 08/25/19 23 024 Inactive pregabalin 150 mg capsule RxNorm: 038977 1 Capsule(s) Oral HS at bed time 08/18/19 23 023 Inactive pregabalin 100 mg capsule RxNorm: 957817 1 Capsule(s) Oral QAM every morning 08/18/19 23 023 Inactive carvedilol 25 mg tablet RxNorm: 771819 1 Tablet(s) Oral QD 07/28/19 23 023 Inactive lisinopril 20 mg tablet RxNorm: 357636 Give 1 Tablet(s) Oral QD 07/28/19 23 023 Inactive Lyrica 150 mg capsule RxNorm: 143062 Take 1 Capsule(s) Oral QHS every night at bedtime 07/19/19 23 023 Inactive d/c 100mg dose Diflucan 150 mg tablet RxNorm: 312541 Take 1 Tablet(s) Oral QD repeat on day 3 and 6 07/19/19 23 023 Inactive pregabalin 100 mg capsule RxNorm: 266688 Take 1 Capsule(s) Oral QAM every morning 07/19/19 23 023 Inactive gatifloxacin 0.5 % eye drops RxNorm: 066926 Instill 1 Drop(s) as directed TID Instill 1 drop in to affected eye(s) starting 1 day prior to surgery and continue until gone (do not exceed 4 weeks). 07/13/19 23 023 Inactive carvedilol 25 mg tablet RxNorm: 837592 2 Tablet(s) Oral BID 07/13/19 023 Inactive Humulin R Regular U-100 Insulin 100 unit/mL injection solution RxNorm: 009393 85 Unit(s) Injection TID 07/13/19 23 023 Inactive ketorolac 0.5 % eye drops RxNorm: 560458 Instill 1 Drop(s) as directed QID Instill 1 drop into affected eye(s) 4 times daily starting 1 day prior to surgery and continue until gone (do not exceed 4 weeks). 07/13/19 023 Inactive Diflucan 150 mg tablet RxNorm: 104423 Take 1 Tablet(s) Oral QD repeat on day 3 and 6 06/30/19 23 023 Inactive Accu-Chek Guide test strips RxNorm: Use 1 Test Strip QID Use 1 test strip to monitor blood glucose 4 times daily and as needed. Dx:E11.42. 06/23/19 23 023 Inactive ok to substitute with any covered alternative test strip dextromethorphan-gu aifenesin 10 mg-100 mg/5 mL oral liquid RxNorm: 010151 Take 10 Milliliter(s) Oral every 4 hours as needed for cough 06/19/19 23 023 Inactive dextromethorphan-gu aifenesin 10 mg-100 mg/5 mL oral liquid RxNorm: 111804 Take 10 Milliliter(s) Oral every 4 hours as needed for cough 06/19/19 23 023 Inactive Lyrica 150 mg capsule RxNorm: 658400 Take 1 Capsule(s) Oral QHS every night at bedtime 06/18/19 023 Inactive d/c 100mg dose aripiprazole 15 mg tablet RxNorm: 462861 1/2 TAB (7.5MG) ORALLY DAILY (DX:MAJOR DEPRESSIVE DISORDER) 06/05/19 023 Inactive pregabalin 100 mg capsule RxNorm: 216779 1 Capsule(s) Oral QAM every morning 06/02/19 023 Inactive Banophen 50 mg capsule RxNorm: 3267537 Take 1 Capsule(s) Oral Q6H every 6 hours as needed 05/19/19 23 No Stop Date Active Novolog Flexpen U-100 Insulin aspart 100 unit/mL (3 mL) subcutaneous RxNorm: 6840117 Inject 10 Unit(s) Subcutaneous QHS every night at bedtime with nighttime snack 04/08/20 022 Inactive Novolog Flexpen U-100 Insulin aspart 100 unit/mL (3 mL) subcutaneous RxNorm: 6657055 Inject 42 Unit(s) Subcutaneous TID in addition to sliding scale 04/08/20 022 Inactive d/c 36u albuterol sulfate HFA 90 mcg/actuation aerosol inhaler RxNorm: 4254417 Take 2 Puff(s) Inhalation Q4H every four hours as needed as needed for SOB, cough, or wheezing 04/07/20 030 Active Banophen 50 mg capsule RxNorm: 5887824 Take 1 Capsule(s) Oral Q6H every 6 hours as needed 04/06/20 023 Inactive diphenhydramine 50 mg tablet RxNorm: 4490641 Take 1 Tablet(s) Oral Q6H every 6 hours as needed 04/06/20 22 022 Inactive diphenhydramine 50 mg tablet RxNorm: 3497021 1 Tablet(s) Oral Q6H every 6 hours as needed 04/06/20 22 022 Inactive Abilify 15 mg tablet RxNorm: 354237 1/2 Tablet(s) Oral QD 03/10/20 22 023 Inactive Shingrix (PF) 50 mcg/0.5 mL intramuscular suspension, kit RxNorm: 4655765 Administer 1/2 Milliliter(s) Intramuscular QD one time shingrix step 2 ( step 1 given 11/04/21) WITH needle - Nursing please administer upon arrival and once administered post a bridge message with date of administration, labor delivery specialist, expiration date, and lot# so we can update [facility] 02/18/20 22 022 Inactive dispense with needle Shingrix (PF) 50 mcg/0.5 mL intramuscular suspension, kit RxNorm: 5488179 Administer 1/2 Milliliter(s) Intramuscular QD one time shingrix step 2 ( step 1 given 11/04/21) WITH needle - Nursing please administer upon arrival and once administered post a bridge message with date of administration, labor delivery specialist, expiration date, and lot# so we can update [facility] 02/18/20 22 022 Inactive dispense with needle polyethylene glycol 3350 17 gram/dose oral powder RxNorm: 373425 Take 17=1 capful Gram(s) Oral QD mix with 4-8oz of liquid 01/08/20 22 023 Inactive take this in addition to BID prn order Lyrica 100 mg capsule RxNorm: 355733 Take 1 Capsule(s) Oral QAM every morning 01/08/20 22 022 Inactive d/c 50mg dose acetaminophen 500 mg tablet RxNorm: 946680 Take 1 Tablet(s) Oral TID 01/08/20 22 022 Inactive d/c PRN order Lyrica 150 mg capsule RxNorm: 899357 Take 1 Capsule(s) Oral QHS every night at bedtime 01/08/20 22 023 Inactive d/c 100mg dose Abilify 5 mg tablet RxNorm: 201886 Take 1 Tablet(s) Oral QD take 1 tab po QD #30 refill 5 dx: MDD 12/12/19 22 022 Inactive Abilify 5 mg tablet RxNorm: 548009 Take 1 Tablet(s) Oral QD take 1 tab po QD #30 refill 5 dx: MDD 12/12/19 22 022 Inactive Novolog Flexpen U-100 Insulin aspart 100 unit/mL (3 mL) subcutaneous RxNorm: 6133488 Inject 42 Unit(s) Subcutaneous TID in addition to sliding scale 12/10/19 22 022 Inactive d/c 36u chlorthalidone 25 mg tablet RxNorm: 209987 Take 1 Tablet(s) Oral QAM every morning 12/10/19 22 023 Inactive pregabalin 50 mg capsule RxNorm: 045484 Take 1 Capsule(s) Oral QAM every morning 11/12/19 22 022 Inactive tetanus-diphtheria toxoids-Td 2 Lf unit-2 Lf unit/0.5 mL IM suspension RxNorm: 139 Take 0.5 Miscellaneous Intramuscular 11/12/19 22 022 Inactive need tdap - nursing to administer upon arrival pregabalin 50 mg capsule RxNorm: 318523 Take 1 Capsule(s) Oral QAM every morning 10/16/19 Inactive pregabalin 50 mg capsule RxNorm: 229953 Take 1 Capsule(s) Oral QAM every morning 10/16/19 22 022 Inactive pregabalin 50 mg capsule RxNorm: 865157 1 Capsule(s) Oral QAM every morning 10/15/19 22 022 Inactive Shingrix (PF) 50 mcg/0.5 mL intramuscular suspension, kit RxNorm: 5966968 Administer 1/2 Milliliter(s) Intramuscular one time Nursing please administer upon arrival and once administered post a bridge message with date of administration, labor delivery specialist, expiration date, and lot# so we can update [facility]. 10/09/19 22 022 Inactive shingrix step 1 Shingrix (PF) 50 mcg/0.5 mL intramuscular suspension, kit RxNorm: 6044907 Administer 1/2 Milliliter(s) Intramuscular one time Nursing please administer upon arrival and once administered post a bridge message with date of administration, labor delivery specialist, expiration date, and lot# so we can update [facility]. 10/09/19 22 022 Inactive shingrix step 1 cholecalciferol (vitamin D3) 1,250 mcg (50,000 unit) capsule RxNorm: 080335 Take 1 Capsule(s) Oral QW once a [...] aspart 100 unit/mL (3 mL) subcutaneous RxNorm: 4831038 Inject 10 Unit(s) Subcutaneous QHS every night at bedtime with nighttime snack 10/08/19 22 Inactive Shingrix (PF) 50 mcg/0.5 mL intramuscular suspension, kit RxNorm: 6861597 ADMINISTER 2-DOSE SERIES PER CDC GUIDELINES 10/08/19 22 Active Shingrix (PF) 50 mcg/0.5 mL intramuscular suspension, kit RxNorm: 2478205 ADMINISTER 2-DOSE SERIES PER CDC GUIDELINES 10/08/19 22 Inactive Novolog Flexpen U-100 Insulin aspart 100 unit/mL (3 mL) subcutaneous RxNorm: 1790078 Inject 36 Unit(s) Subcutaneous TID in addition to sliding scale 10/08/19 22 Inactive Novofine Autocover 30 gauge x 1/3 needle RxNorm: Use 1 Miscellaneous UD as directed Use 1 needle as directed to administer insulin 5 times a day Dx:E11.42. 10/03/19 Inactive ok to substitute with any covered alternative pen needle benzoyl peroxide 10 % topical cleanser RxNorm: 987708 Apply 1 Application Topical QD apply to face, wash rinse and dry once daily (may change to QOD if drying) 08/19/19 22 022 Inactive (%covered by insurance) #60ml refill 11 dx: acne benzoyl peroxide 10 % topical cleanser RxNorm: 413477 Apply 1 Application Topical QD apply to face, wash rinse and dry once daily (may change to QOD if drying) 08/19/19 22 022 Inactive (%covered by insurance) #60ml refill 11 dx: acne benzoyl peroxide 10 % topical cleanser RxNorm: 450458 Apply 1 Application Topical QD apply to face, wash rinse and dry once daily (may change to QOD if drying) 08/19/19 22 022 Inactive (%covered by insurance) #60ml refill 11 dx: acne Lyrica 50 mg capsule RxNorm: 190797 Take 1 Capsule(s) Oral QAM every morning Take 1 capsule by mouth once daily 08/19/19 22 022 Inactive benzoyl peroxide 10 % topical cleanser RxNorm: 327344 Apply 1 Application Topical QD apply to face, wash rinse and dry once daily (may change to QOD if drying) 08/19/19 22 022 Inactive (%covered by insurance) #60ml refill 11 dx: acne Lyrica 100 mg capsule RxNorm: 529991 Take 1 Capsule(s) Oral QHS every night at bedtime Take 1 capsule by mouth once daily at bedtime 08/19/19 22 022 Inactive Lyrica 100 mg capsule RxNorm: 615895 Take 1 Capsule(s) Oral QHS every night at bedtime Take 1 capsule by mouth once daily at bedtime 08/16/19 22 022 Inactive Lyrica 50 mg capsule RxNorm: 106508 Take 1 Capsule(s) Oral QAM every morning Take 1 capsule by mouth once daily 08/16/19 22 022 Inactive Levemir FlexTouch U-100 Insulin 100 unit/mL (3 mL) subcutaneous pen RxNorm: 796306 Inject 86 Unit(s) Subcutaneous BID 08/05/19 22 022 Inactive d/c 83units BID Lyrica 100 mg capsule RxNorm: 968480 Take 1 Capsule(s) Oral QHS every night at bedtime Take 1 capsule by mouth once daily at bedtime 07/14/19 22 022 Inactive Lyrica 50 mg capsule RxNorm: 068505 Take 1 Capsule(s) Oral QAM every morning Take 1 capsule by mouth once daily 07/14/19 22 022 Inactive Levemir FlexTouch U-100 Insulin 100 unit/mL (3 mL) subcutaneous pen RxNorm: 281708 Inject 83 Unit(s) Subcutaneous BID 07/08/19 22 [...] test strip hydralazine 50 mg tablet RxNorm: 795591 Take 1 Tablet(s) Oral QID 05/05/20 21 022 Inactive venlafaxine ER 225 mg tablet,extended release 24 hr RxNorm: 084062 Take 1 Tablet(s) Oral QD 05/05/20 21 021 Inactive venlafaxine ER 225 mg tablet,extended release 24 hr RxNorm: 392509 Take 1 Tablet(s) Oral QD 12/20 022 Inactive isosorbide mononitrate ER 30 mg tablet,extended release 24 hr RxNorm: 623678 Take 1 Tablet(s) Oral QD 05/05/20 21 024 Inactive hydralazine 50 mg tablet RxNorm: 014406 Take 1 Tablet(s) Oral QID 05/05/20 21 021 Inactive aspirin 81 mg tablet,delayed release RxNorm: 775580 Take 1 Tablet(s) Oral QD 03/31/20 022 Inactive Vitamin D2 1,250 mcg (50,000 unit) capsule RxNorm: 1169670 Take 1 Capsule(s) Oral QW once a week x 12 weeks 03/31/20 Inactive Vitamin D2 1,250 mcg (50,000 unit) capsule RxNorm: 0788289 Take 1 Capsule(s) Oral QW once a week 03/31/20 021 Inactive Zetia 10 mg tablet RxNorm: 187456 Take 1 Tablet(s) Oral QD 03/31/20 024 Inactive Zetia 10 mg tablet RxNorm: 862724 Take 1 Tablet(s) Oral QD 03/31/20 021 Inactive hydralazine 25 mg tablet RxNorm: 630749 Take 1 Tablet(s) Oral QID 03/31/20 21 021 Inactive hydralazine 25 mg tablet RxNorm: 071324 Take 1 Tablet(s) Oral QID 03/31/20 021 Inactive hydralazine 10 mg tablet RxNorm: 279330 Take 1 Tablet(s) Oral QID 03/03/20 021 Inactive cephalexin 500 mg tablet RxNorm: 787117 Take 1 Tablet(s) Oral QID 02/27/20 021 Inactive cephalexin 500 mg tablet RxNorm: 086573 Take 1 Tablet(s) Oral QID 02/27/20 021 Inactive lisinopril 40 mg tablet RxNorm: 042673 Take 1 Tablet(s) Oral QD 02/11/20 21 023 Inactive Eliquis 5 mg tablet RxNorm: 5623166 Take 1 Tablet(s) Oral BID 01/05/20 022 Inactive Eliquis 5 mg tablet RxNorm: 0291097 Take 2 Tablet(s) Oral QD 01/01/20 021 Inactive Lyrica 50 mg capsule RxNorm: 748630 Take 1 Capsule(s) Oral QAM every morning 12/24/19 21 021 Inactive Lyrica 100 mg capsule RxNorm: 212675 Take 1 Capsule(s) Oral QHS every night at bedtime 12/24/19 021 Inactive clotrimazole 1 % topical cream RxNorm: 030300 Apply to right foot and toes Topical BID 12/04/19 21 023 Inactive metoprolol succinate ER 200 mg tablet,extended release 24 hr RxNorm: 077846 Take 1 Tablet(s) Oral QD 12/04/19 023 Inactive ciprofloxacin 500 mg tablet RxNorm: 739880 Take 1 Tablet(s) Oral QD 11/30/19 021 Inactive DX ofloxacin otic drops Accu-Chek Guide test strips RxNorm: USE 1 TO CHECK GLUCOSE 4 TIMES DAILY AND NEEDED 11/15/19 21 023 Inactive Blood Glucose Test strips RxNorm: Use 1 Test Strip QID at PRN 11/05/19 21 023 Inactive E11.42 lisinopril 30 mg tablet RxNorm: 053000 Take 1 Tablet(s) Oral QD 10/30/19 021 Inactive lisinopril 20 mg tablet RxNorm: 929558 Take 1 Tablet(s) Oral QD 10/23/19 021 Inactive lisinopril 20 mg tablet RxNorm: 066049 Take 1 Tablet(s) Oral QD 10/23/19 21 021 Inactive lisinopril 10 mg tablet RxNorm: 670303 Take 1 Tablet(s) Oral QD 10/02/19 21 021 Inactive icosapent ethyl 1 gram capsule RxNorm: 8836395 Take 2 Capsule(s) (2 gm) Oral BID with meals 09/12/19 21 024 Inactive Okay to dispense one 2gm tab if you have that available. icosapent ethyl 1 gram capsule RxNorm: 9431218 Take 2 Capsule(s) Oral BID 09/12/19 21 021 Inactive Okay to dispense one 2gm tab if you have that available. amlodipine 10 mg tablet RxNorm: 752919 Take 1 Tablet(s) Oral QD 09/04/19 022 Inactive aspirin 81 mg tablet,delayed release RxNorm: 306864 Take 1 Tablet(s) Oral QD 09/04/19 021 Inactive Levemir FlexTouch U-100 Insulin 100 unit/mL (3 mL) subcutaneous pen RxNorm: 668517 Inject 150 Unit(s) Subcutaneous BID 09/04/19 022 Inactive venlafaxine ER 150 mg tablet,extended release 24 hr RxNorm: 581515 Take 1 Tablet(s) Oral QD 09/04/19 Inactive clotrimazole-betame thasone 1 %-0.05 % topical cream RxNorm: 309457 Apply to rash on red area on left abdomen/chest Topical BID 08/10/19 21 021 Inactive amlodipine 5 mg tablet RxNorm: 880371 Take 1 Tablet(s) Oral QD 07/31/19 Inactive cephalexin 500 mg tablet RxNorm: 293332 Take 1 Tablet(s) Oral BID BID - Twice Daily 07/31/19 021 Inactive Start 08/01/20 pantoprazole 40 mg tablet,delayed release RxNorm: 944961 Take 1 Tablet(s) Oral QAM every morning 07/08/19 022 Inactive senna 8.6 mg tablet RxNorm: 233407 Take 1 Tablet(s) Oral QD 07/08/19 022 Inactive carbamazepine 200 mg tablet RxNorm: 423795 Take 1 Tablet(s) Oral BID 07/08/19 21 022 Inactive clopidogrel 75 mg tablet RxNorm: 425164 Take 1 Tablet(s) Oral QD 07/08/19 021 Inactive Blood Glucose Test strips RxNorm: Use 1 Test Strip QID at PRN 07/08/1907 07/22/2 021 Inactive E11.42 Novolog Flexpen U-100 Insulin aspart 100 unit/mL (3 mL) subcutaneous RxNorm: 0021784 Administer per sliding scale Milliliter(s) Subcutaneous TID 151-200: 10 u; 201-250: 20 u; 251-300: 30 u; 301-350: 40 u; 351-400: 50 u. 07/08/19 022 Inactive lisinopril 5 mg tablet RxNorm: 775562 Take 1 Tablet(s) Oral QD 07/08/19 21 021 Inactive Novolog Flexpen U-100 Insulin aspart 100 unit/mL (3 mL) subcutaneous RxNorm: 7828813 Inject 85 Unit(s) Subcutaneous TID 07/08/19 022 Inactive pravastatin 80 mg tablet RxNorm: 405142 Take 1 Tablet(s) Oral QHS every night at bedtime 07/08/19 023 Inactive clotrimazole 1 % topical cream RxNorm: 527820 Apply to bilateral groin areas Topical BID 07/08/19 022 Inactive metoprolol succinate ER 200 mg tablet,extended release 24 hr RxNorm: 329815 Take 1 Tablet(s) Oral QD 07/08/19 021 Inactive Vitamin D3 25 mcg (1,000 unit) tablet RxNorm: 977946 Take 1 Tablet(s) Oral QD 07/08/19 021 Inactive isosorbide dinitrate 30 mg tablet RxNorm: 161513 Take 1 Tablet(s) Oral QD 07/08/19 021 Inactive Levemir FlexTouch U-100 Insulin 100 unit/mL (3 mL) subcutaneous pen RxNorm: 755851 Inject 140 Unit(s) Subcutaneous BID 07/08/19 021 Inactive torsemide 20 mg tablet RxNorm: 358627 Take 1 Tablet(s) Oral QD 07/08/19 21 023 Inactive venlafaxine 75 mg tablet RxNorm: 086217 Take 1 Tablet(s) Oral QD 07/08/19 021 Inactive acetaminophen 500 mg tablet RxNorm: Take 1 Tablet(s) Oral TID as needed for headache 06/18/19 21 021 Inactive acetaminophen 500 mg tablet RxNorm: 671575 Take 1 Tablet(s) Oral TID as needed for headache 06/18/19 21 021 Inactive Lyrica 100 mg capsule RxNorm: 018452 Take 1 Capsule(s) Oral QHS every night at bedtime 06/11/19 21 021 Inactive Lyrica 50 mg capsule RxNorm: 514022 Take 1 Capsule(s) Oral QAM every morning 06/10/19 21 021 Inactive hydrocortisone 2.5 % topical cream RxNorm: 831601 Apply to bilateral groin creases Topical BID 05/15/20 20 021 Inactive clotrimazole 1 % topical cream RxNorm: 389168 Apply to bilateral groin areas Topical BID 05/15/20 20 021 Inactive Lyrica 50 mg capsule RxNorm: 499109 Take 1 Capsule(s) Oral QAM every morning 05/14/20 20 020 Inactive Lyrica 100 mg capsule RxNorm: 335252 Take 1 Capsule(s) Oral QHS every night [...] Inactive Nystop 100,000 unit/gram topical powder RxNorm: 391812 Apply to abd folds, under breasts and L side of groin Topical BID x 14 days, then BID PRN 04/08/20 20 Inactive dx: yeast dermatitis Lyrica 100 mg capsule RxNorm: 919941 Take 1 Capsule(s) Oral QHS every night at bedtime 03/13/20 20 Inactive Lyrica 50 mg capsule RxNorm: 015559 Take 1 Capsule(s) Oral QAM every morning 03/13/20 20 Inactive ketoconazole 2 % shampoo RxNorm: 256306 Apply Topical two times a week with showers 03/11/20 20 Inactive cholecalciferol (vitamin D3) 50 mcg (2,000 unit) tablet RxNorm: 334313 Take 1 Tablet(s) Oral QD 03/11/20 20 Inactive Zetia 10 mg tablet RxNorm: 526851 Take 1 Tablet(s) Oral QD 03/07/20 20 Inactive Zetia 10 mg tablet RxNorm: 229067 Take 1 Tablet(s) Oral QD 03/07/20 20 Inactive Lyrica 50 mg capsule RxNorm: 273561 Take 1 Capsule(s) Oral QAM every morning 02/15/20 20 Inactive Lyrica 100 mg capsule RxNorm: 526370 Take 1 Capsule(s) Oral QHS every night at bedtime 02/15/20 20 Inactive Lyrica 100 mg capsule RxNorm: 737660 Take 1 Capsule(s) Oral QHS every night at bedtime 02/15/20 20 Inactive Lyrica 50 mg capsule RxNorm: 797594 Take 1 Capsule(s) Oral QAM every morning 02/15/20 20 Inactive metoprolol succinate ER 200 mg tablet,extended release 24 hr RxNorm: 725985 Take 1 Tablet(s) Oral QD 08/12/19 23 Active loperamide 2 mg capsule RxNorm: 364925 Take 1 Capsule(s) Oral QID as needed 06/12/19 Active hydralazine 50 mg tablet RxNorm: 486827 Take 1 Tablet(s) Oral QID 08/12/19 23 Active Soft Touch Lancets RxNorm: miscellaneous 03/04/20 24 Active venlafaxine ER 75 mg capsule,extended release 24 hr RxNorm: 899369 Take 3 Capsule(s) Oral QD 06/12/19 22 023 Inactive polyethylene glycol 3350 17 gram/dose oral powder RxNorm: 054657 Take 17=1 capful Gram(s) Oral BID as needed mix with 4-8oz of liquid 06/12/19 22 024 Inactive icosapent ethyl 1 gram capsule RxNorm: 7083801 Take 2 Capsule(s) (2 gm) Oral BID with meals 10/07/19 23 023 Inactive Okay to dispense one 2gm tab if you have that available. Levemir FlexTouch U-100 Insulin 100 unit/mL (3 mL) subcutaneous pen RxNorm: 142188 Inject 80 Unit(s) Subcutaneous BID 07/14/19 23 023 Inactive Novolog Flexpen U-100 Insulin aspart 100 unit/mL (3 mL) subcutaneous RxNorm: 1909406 Insert 30 Unit(s) Subcutaneous TID with meals [...] Codes Status Date Appointment: Brian Munson WPtel: [address] [place], [place] [phone] AWV 02/08/2024 Appointment: Brian Munson WPtel: [address] [place], [place] [phone] [place] F/U 01/11/2024 Appointment: Sandra Clark WPtel: [address] [place], [place] [phone] Telehealth Psych Follow Up 12/09 Appointment: Tapan Shirley WPtel: [address] [place], [place] [phone] TCM 10/26/2022 Referral: [facility] WPtel: [address], [address] [id number] Referral Records Received 09/21/2022 Appointment: Tapan Shirley WPtel: [address] [place], [place] [phone] [place] F/U 08/11/2022 Appointment: Tapan Shirley WPtel: [address] [place], [place] [phone] [place] F/U 07/14/2022 Appointment: Tapan Shirley WPtel: [address] [facility] [address] [id number] [place] F/U 02/10/2022 Referral: [facility] CARLO WPtel: [address] [facility] [address] [id number] [place] Referral Completed 05/28/2021 Referral: General Cardiology [...] Sister Jyotsna involved in his care cell# [phone] Guardian: Giulia (tapan met in person 09/01/21), [...] note from 11.08.2023 at [facility] (follow up 6 months)Colon & Rectal Surgery visit scheduled for 03/08/24 with Matilde Pérez PA-C. 02/08/2024
--- OUTSIDE RECORDS SUMMARY | 2024-03-09 01:42 | XMS_ITS | CCD ---
Author Name Cecilio Durham ie Address [address] [facility] [address] [place] [address] Phone Organization [facility] Phone Care Team Providers Care Cordwood Cutter Helper Name Role Phone Arpit PROJECTION TECHNICIAN-CHarriosn Primary Care Provider Leona vailable Arpit ARLENParker [facility] U navailable Summary Purpose DataExchange Insurance Providers Payer name Policy type / Coverage type Covered republican ID Effective Begin Date Effective End Date [place] Part B [id number] Unknown Unknown [place] Part B [id number] Unknown Unknown Family history Sister Brittany Suggs Diagnosis Age At Onset No Family Disease Entered N/A Runs in the family Diagnosis Age At Onset No Known Diseases N/A Sister Blanka Mcduffie Diagnosis Age At Onset No Family Disease Entered N/A Social History Social History Element Codes Description Effec tive Dates Tobacco history SNOMED CT: 522382281 Never smoker 01/16 Sexually Active? Unknown No [...] Single 10/07/2021 Living arrangements Unknown [facility] 09/03/[address]: 225062466 No Alcohol Consum ption 09/02/2020 Allergies, Adverse Reactions, Alerts Substance Reaction Codes Entered Date Inactivated Date Status * NO KNOWN FOOD ALLERGIES Unknown 07/13/2023 No Inactive Date Active LISINOPRIL RxNorm: 92609 02/12/2020 No Inactive Da te Active Metformin [...] 09/07/2023 Resolved Coronary artery disease invo lving venetie coronary [...] Insulin 100 unit/mL (3 mL) subcutaneous RxNorm: 9485760 Inject 40 Unit(s) Subcutaneous BID 03/07/20 Active Please dispense one month supply. Humulin R U-500 (Concentrated) Insulin 500 unit/mL subcutaneous soln RxNorm: 368299 Inject 100 Unit(s) Subcutaneous AC before meals [...] PRN) to be use with new Accu Hallett meter 03/04/20 Inactive ok to substitute with any covered alternative test strip nystatin 100,000 unit/gram topical powder RxNorm: 169300 Apply 1 Application Topical BID as needed [...] (Concentrated) Insulin 500 unit/mL subcutaneous soln RxNorm: 991184 Inject 100 Unit(s) Subcutaneous TID 02/17/20 24 024 Inactive Humulin R U-500 (Concentrated) Insulin 500 unit/mL subcutaneous soln RxNorm: 886767 Inject 100 Unit(s) Subcutaneous TID 02/10/20 24 024 Inactive Basaglar KwikPen U-100 Insulin 100 unit/mL (3 mL) subcutaneous RxNorm: 7768400 Inject 30 Unit(s) Subcutaneous BID 02/10/20 024 Inactive Please dispense one month supply. pregabalin 100 mg capsule RxNorm: 378485 Take 1 Capsule(s) Oral QAM every morning 02/07/20 24 024 Active isosorbide mononitrate ER 60 mg tablet,extended release 24 hr RxNorm: 685360 Take 1 Tablet(s) Oral QD 02/01/20 24 025 Active aripiprazole 15 mg tablet RxNorm: 922694 Take 1/2 Tablet(s) Oral QD 02/01/20 24 025 Active torsemide 20 mg tablet RxNorm: 381295 1 TAB ORALLY DAILY (DX: EDEMA) 01/27/20 No Stop Date Active potassium chloride ER 20 mEq tablet,extended release(part/cryst) RxNorm: 3471274 2 TABS (40MEQ) ORALLY TWICE DAILY (DX: HYPOKALEMIA) 01/27/20 No Stop Date Active cephalexin 500 mg capsule RxNorm: 206669 Take 1 Capsule(s) Oral QID 12/17/19 24 024 Inactive cephalexin 500 mg capsule RxNorm: 856309 Take 1 Capsule(s) Oral QID 12/17/19 24 024 Inactive acetaminophen 500 mg tablet RxNorm: 352463 (MAX APAP:4GM/24HR) Take 1 Tablet(s) Oral TID as needed for pain 12/10/19 24 024 Active torsemide 20 mg tablet RxNorm: 486908 Take 1 Tablet(s) Oral QD 10/26/19 24 [...] %-0.3 % drops in a dropperette RxNorm: 405530 Apply 1-2 Drop(s) Both eyes BID as needed 09/28/19 24 Active erythromycin 5 mg/gram (0.5 %) eye ointment RxNorm: 816400 Apply 1 Application Both eyes QHS every night at bedtime Instill ~1 cm ribbon into affected eye 09/28/19 24 Inactive Artificial Tears (PF) 0.1 %-0.3 % drops in a dropperette RxNorm: 935200 Apply 1-2 Drop(s) Both eyes BID as needed 09/28/19 24 Inactive erythromycin 5 mg/gram (0.5 %) eye ointment RxNorm: 089432 Apply 1 Application Both eyes QHS every night at bedtime Instill ~1 cm ribbon into affected eye 09/28/19 24 Inactive acetaminophen 500 mg tablet RxNorm: 702539 (MAX APAP:4GM/24HR) Take 1 Tablet(s) Oral TID as needed for pain 09/24/19 Inactive carvedilol 25 mg tablet RxNorm: 003291 Take 1 Tablet(s) Oral QD 09/08/19 24 No Stop Date Active pregabalin 100 mg capsule RxNorm: 666037 Take 1 Capsule(s) Oral QAM every morning 09/07/19 24 024 Inactive rosuvastatin 40 mg tablet RxNorm: 886546 Take 1 Tablet(s) Oral QPM every evening 07/13/19 24 No Stop Date Active ezetimibe 10 mg tablet RxNorm: 667824 Take 1 Tablet(s) Oral QD 07/13/19 24 No Stop Date Active bisacodyl 10 mg rectal suppository RxNorm: 977197 Insert 1 Suppository Rectal QD as needed 07/13/19 24 No Stop Date Active polyethylene glycol 3350 17 gram/dose oral powder RxNorm: 297112 Take 17 Gram(s) Oral BID as needed mix in 4-8ox water 07/13/19 24 No Stop Date Active ketoconazole 2 % shampoo RxNorm: 731246 Apply 1 Application Topical UD as directed 07/13/19 24 No Stop Date Active Ozempic 1 mg/dose (4 mg/3 mL) subcutaneous pen injector RxNorm: 4494530 Inject 1 Milligram(s) Subcutaneous QW once a week 07/13/19 24 No Stop Date Active Guaifenesin AC 10 mg-100 mg/5 mL oral liquid RxNorm: 103046 Take 10 Milliliter(s) Oral Q4H every four hours as needed 07/13/19 24 No Stop Date Active ammonium lactate 12 % topical cream RxNorm: 075043 Apply 1 Application Topical BID 07/13/19 24 No Stop Date Active hydrocortisone 2.5 % topical cream RxNorm: 876684 Apply 1 Application Topical BID as needed 07/13/19 24 No Stop Date Active rosuvastatin 20 mg sprinkle capsule RxNorm: 7904330 Take 1 Capsule(s) Oral QD 07/13/19 24 No Stop Date Active Vascepa 1 gram capsule RxNorm: 9106073 Take 2 Capsule(s) Oral BID 07/13/19 24 No Stop Date Active venlafaxine ER 75 mg capsule,extended release 24 hr RxNorm: 846238 Take 3 Capsule(s) Oral QD 07/13/19 24 No Stop Date Active aripiprazole 15 mg tablet RxNorm: 526964 Take 1/2 Tablet(s) Oral QD 07/13/19 24 024 Inactive isosorbide mononitrate ER 60 mg tablet,extended release 24 hr RxNorm: 347415 Take 1 Tablet(s) Oral QD 07/13/19 24 024 Inactive Basaglar KwikPen U-100 Insulin 100 unit/mL (3 mL) subcutaneous RxNorm: 6290801 Inject 30U SubQ twice daily 07/07/19 24 024 Inactive Please dispense one month supply. Tusharagldestin MendenhallPen U-100 Insulin 100 unit/mL (3 mL) subcutaneous RxNorm: 3383728 Inject 30U SubQ twice daily 07/07/19 24 024 Inactive Please dispense one month supply. pregabalin 150 mg capsule RxNorm: 562043 Take 1 Capsule(s) Oral QHS every night at bedtime 07/05/19 24 024 Inactive pregabalin 150 mg capsule RxNorm: 797762 Take 1 Capsule(s) Oral QHS every night at bedtime 07/05/19 24 024 Inactive polyethylene glycol 3350 17 gram/dose oral powder RxNorm: 005024 Take 1 Packet Oral QD as needed (1 packet = 17g) mix with 4-8oz of liquid 06/15/19 24 024 Inactive bisacodyl 10 mg rectal suppository RxNorm: 295065 Insert one suppository per rectum once daily as needed for constipation 06/15/19 24 024 Inactive bisacodyl 10 mg rectal suppository RxNorm: 277001 Insert one suppository per rectum once daily as needed for constipation 06/15/19 24 024 Inactive pregabalin 100 mg capsule RxNorm: 997125 Take 1 Capsule(s) Oral QAM every morning 04/27/20 23 024 Inactive Levemir FlexPen 100 unit/mL (3 mL) solution subcutaneous insulin pen RxNorm: 909431 Inject 30 Unit(s) Subcutaneous BID 04/27/20 23 024 Inactive rosuvastatin 40 mg tablet RxNorm: 577917 Take 1 Tablet(s) Oral QPM every evening 04/16/20 23 024 Inactive D/C rosuvastatin 20mg venlafaxine ER 75 mg capsule,extended release 24 hr RxNorm: 047150 Take 3 Capsule(s) Oral QD 04/14/20 23 023 Inactive pregabalin 100 mg capsule RxNorm: 383142 Take 1 Capsule(s) Oral QAM every morning [...] strip clotrimazole 1 % topical cream RxNorm: 816284 Take apply topically to abdominal folds twice daily for 14 days 03/12/20 024 Inactive Ozempic 1 mg/dose (4 mg/3 mL) subcutaneous pen injector RxNorm: 8408937 Inject 1 Milligram(s) Subcutaneous QW once a week 03/11/20 23 023 Inactive rosuvastatin 20 mg tablet RxNorm: 606799 Take 1 Tablet(s) Oral QD 02/26/20 023 Inactive d/c pravastatin 80mg Ozempic 1 mg/dose (4 mg/3 mL) subcutaneous pen injector RxNorm: 5923967 Inject 1 Milligram(s) Subcutaneous QW once a week 02/20/20 23 023 Inactive pregabalin 150 mg capsule RxNorm: 232342 Take 1 Capsule(s) Oral HS at bed time 02/19/20 23 023 Inactive pregabalin 100 mg capsule RxNorm: 000012 Take 1 Capsule(s) Oral QAM every morning 02/18/20 23 023 Inactive venlafaxine ER 75 mg capsule,extended release 24 hr RxNorm: 879703 Take 3 Capsule(s) Oral QD 02/04/20 23 023 Inactive FreeStyle Chema 2 Sensor kit RxNorm: use as directed 02/04/20 23 023 Inactive FreeStyle Chema 2 Sensor kit RxNorm: use as directed 02/04/20 23 024 Inactive fluconazole 150 mg tablet RxNorm: 505517 Take 1 Tablet(s) Oral on day 3 and on day 6 02/03/20 23 024 Inactive chlorthalidone 25 mg tablet RxNorm: 498706 Take 1 Tablet(s) Oral QAM every morning 02/03/20 23 No Stop Date Active venlafaxine ER 150 mg capsule,extended release 24 hr RxNorm: 826684 Take 1 Capsule(s) Oral QD 02/03/20 23 023 Inactive acetaminophen 500 mg tablet RxNorm: 218563 1 TABLET ORALLY 3 TIMES DAILY (MAX APAP:4GM/24HR) 12/15/19 23 023 Inactive clotrimazole 1 % topical cream RxNorm: 892538 apply 1g topically to top of feet and in between toes BID 12/09/19 23 023 Inactive potassium chloride ER 20 mEq tablet,extended release RxNorm: 065947 Take 1 Tablet(s) Oral BID 12/09/19 23 024 Inactive d/c 20mEq once daily (sent from hospital) nystatin 100,000 unit/gram topical powder RxNorm: 343201 APPLY TO AFFECTED AREAS TOPICALLY 2 TIMES DAILY 11/21/19 23 023 Inactive Nystop 100,000 unit/gram topical powder RxNorm: 438613 Apply to abd folds, under breasts and L side of groin Topical BID x 14 days, then BID PRN 11/20/19 23 023 Inactive dx: yeast dermatitis Bengay Ultra Strength 4 %-30 %-10 % topical cream RxNorm: 191231 Apply 1 Gram(s) Topical QID PRN to feet and legs for neuropathic pain 11/11/19 23 024 Inactive clotrimazole 1 % topical cream RxNorm: 317900 Apply 1/2 Gram(s) Topical BID Apply to affected areas of groin, periarea, and abdominal topically 2 times daily 11/10/19 23 023 Inactive hydrocortisone 2.5 % topical cream RxNorm: 435863 Apply 1/2 Gram(s) Topical BID as needed 11/10/19 23 024 Inactive Levemir FlexPen 100 unit/mL (3 mL) solution subcutaneous insulin pen RxNorm: 889072 Inject 30 Unit(s) Subcutaneous BID 10/07/19 23 023 Inactive Humulin R U-500 (Concentrated) Insulin 500 unit/mL subcutaneous soln RxNorm: 824079 Inject 100 Unit(s) Subcutaneous TID 10/07/19 23 024 Inactive Ozempic 0.25 mg or 0.5 mg (2 mg/3 mL) subcutaneous pen injector RxNorm: 7230351 Inject 1/2 Milligram(s) Subcutaneous QW once a week 10/07/19 23 024 Inactive aripiprazole 15 mg tablet RxNorm: 636060 1/2 TAB (7.5MG) ORALLY DAILY (DX:MAJOR DEPRESSIVE DISORDER) 09/23/19 23 023 Inactive Accu-Chek Guide test strips RxNorm: Use 1 Test Strip QID 09/15/19 23 023 Inactive ok to substitute with any covered alternative test strip Lancets,Thin 28 gauge RxNorm: Use 1 as directed QID 09/15/19 23 023 Inactive torsemide 20 mg tablet RxNorm: 632181 Take 1 Tablet(s) Oral BID 09/09/19 23 024 Inactive d/c once daily dosing carvedilol 25 mg tablet RxNorm: 665579 Take 1 Tablet(s) Oral QD 08/25/19 23 024 Inactive pregabalin 150 mg capsule RxNorm: 649918 1 Capsule(s) Oral HS at bed time 08/18/19 23 023 Inactive pregabalin 100 mg capsule RxNorm: 724013 1 Capsule(s) Oral QAM every morning 08/18/19 23 023 Inactive carvedilol 25 mg tablet RxNorm: 690824 1 Tablet(s) Oral QD 07/28/19 23 023 Inactive lisinopril 20 mg tablet RxNorm: 389549 Give 1 Tablet(s) Oral QD 07/28/19 23 023 Inactive Lyrica 150 mg capsule RxNorm: 814463 Take 1 Capsule(s) Oral QHS every night at bedtime 07/19/19 23 023 Inactive d/c 100mg dose Diflucan 150 mg tablet RxNorm: 577286 Take 1 Tablet(s) Oral QD repeat on day 3 and 6 07/19/19 23 023 Inactive pregabalin 100 mg capsule RxNorm: 979447 Take 1 Capsule(s) Oral QAM every morning 07/19/19 23 023 Inactive gatifloxacin 0.5 % eye drops RxNorm: 674094 Instill 1 Drop(s) as directed TID Instill 1 drop in to affected eye(s) starting 1 day prior to surgery and continue until gone (do not exceed 4 weeks). 07/13/19 23 023 Inactive carvedilol 25 mg tablet RxNorm: 723038 2 Tablet(s) Oral BID 07/13/19 023 Inactive Humulin R Regular U-100 Insulin 100 unit/mL injection solution RxNorm: 552509 85 Unit(s) Injection TID 07/13/19 23 023 Inactive ketorolac 0.5 % eye drops RxNorm: 257133 Instill 1 Drop(s) as directed QID Instill 1 drop into affected eye(s) 4 times daily starting 1 day prior to surgery and continue until gone (do not exceed 4 weeks). 07/13/19 023 Inactive Diflucan 150 mg tablet RxNorm: 350662 Take 1 Tablet(s) Oral QD repeat on day 3 and 6 06/30/19 23 023 Inactive Accu-Chek Guide test strips RxNorm: Use 1 Test Strip QID Use 1 test strip to monitor blood glucose 4 times daily and as needed. Dx:E11.42. 06/23/19 23 023 Inactive ok to substitute with any covered alternative test strip dextromethorphan-gu aifenesin 10 mg-100 mg/5 mL oral liquid RxNorm: 357490 Take 10 Milliliter(s) Oral every 4 hours as needed for cough 06/19/19 23 023 Inactive dextromethorphan-gu aifenesin 10 mg-100 mg/5 mL oral liquid RxNorm: 656532 Take 10 Milliliter(s) Oral every 4 hours as needed for cough 06/19/19 23 023 Inactive Lyrica 150 mg capsule RxNorm: 575122 Take 1 Capsule(s) Oral QHS every night at bedtime 06/18/19 023 Inactive d/c 100mg dose aripiprazole 15 mg tablet RxNorm: 484430 1/2 TAB (7.5MG) ORALLY DAILY (DX:MAJOR DEPRESSIVE DISORDER) 06/05/19 023 Inactive pregabalin 100 mg capsule RxNorm: 278815 1 Capsule(s) Oral QAM every morning 06/02/19 023 Inactive Banophen 50 mg capsule RxNorm: 7463631 Take 1 Capsule(s) Oral Q6H every 6 hours as needed 05/19/19 23 No Stop Date Active Novolog Flexpen U-100 Insulin aspart 100 unit/mL (3 mL) subcutaneous RxNorm: 5220297 Inject 10 Unit(s) Subcutaneous QHS every night at bedtime with nighttime snack 04/08/20 022 Inactive Novolog Flexpen U-100 Insulin aspart 100 unit/mL (3 mL) subcutaneous RxNorm: 2319247 Inject 42 Unit(s) Subcutaneous TID in addition to sliding scale 04/08/20 022 Inactive d/c 36u albuterol sulfate HFA 90 mcg/actuation aerosol inhaler RxNorm: 4180479 Take 2 Puff(s) Inhalation Q4H every four hours as needed as needed for SOB, cough, or wheezing 04/07/20 030 Active Banophen 50 mg capsule RxNorm: 5375859 Take 1 Capsule(s) Oral Q6H every 6 hours as needed 04/06/20 023 Inactive diphenhydramine 50 mg tablet RxNorm: 0035841 Take 1 Tablet(s) Oral Q6H every 6 hours as needed 04/06/20 22 022 Inactive diphenhydramine 50 mg tablet RxNorm: 0872762 1 Tablet(s) Oral Q6H every 6 hours as needed 04/06/20 22 022 Inactive Abilify 15 mg tablet RxNorm: 720323 1/2 Tablet(s) Oral QD 03/10/20 22 023 Inactive Shingrix (PF) 50 mcg/0.5 mL intramuscular suspension, kit RxNorm: 8020117 Administer 1/2 Milliliter(s) Intramuscular QD one time shingrix step 2 ( step 1 given 11/04/21) WITH needle - Nursing please administer upon arrival and once administered post a bridge message with date of administration, renewals representative, expiration date, and lot# so we can update [facility] 02/18/20 22 022 Inactive dispense with needle Shingrix (PF) 50 mcg/0.5 mL intramuscular suspension, kit RxNorm: 7851727 Administer 1/2 Milliliter(s) Intramuscular QD one time shingrix step 2 ( step 1 given 11/04/21) WITH needle - Nursing please administer upon arrival and once administered post a bridge message with date of administration, renewals representative, expiration date, and lot# so we can update [facility] 02/18/20 22 022 Inactive dispense with needle polyethylene glycol 3350 17 gram/dose oral powder RxNorm: 635992 Take 17=1 capful Gram(s) Oral QD mix with 4-8oz of liquid 01/08/20 22 023 Inactive take this in addition to BID prn order Lyrica 100 mg capsule RxNorm: 125077 Take 1 Capsule(s) Oral QAM every morning 01/08/20 22 022 Inactive d/c 50mg dose acetaminophen 500 mg tablet RxNorm: 378098 Take 1 Tablet(s) Oral TID 01/08/20 22 022 Inactive d/c PRN order Lyrica 150 mg capsule RxNorm: 208103 Take 1 Capsule(s) Oral QHS every night at bedtime 01/08/20 22 023 Inactive d/c 100mg dose Abilify 5 mg tablet RxNorm: 754999 Take 1 Tablet(s) Oral QD take 1 tab po QD #30 refill 5 dx: MDD 12/12/19 22 022 Inactive Abilify 5 mg tablet RxNorm: 408256 Take 1 Tablet(s) Oral QD take 1 tab po QD #30 refill 5 dx: MDD 12/12/19 22 022 Inactive Novolog Flexpen U-100 Insulin aspart 100 unit/mL (3 mL) subcutaneous RxNorm: 3662924 Inject 42 Unit(s) Subcutaneous TID in addition to sliding scale 12/10/19 22 022 Inactive d/c 36u chlorthalidone 25 mg tablet RxNorm: 266045 Take 1 Tablet(s) Oral QAM every morning 12/10/19 22 023 Inactive pregabalin 50 mg capsule RxNorm: 549566 Take 1 Capsule(s) Oral QAM every morning 11/12/19 22 022 Inactive tetanus-diphtheria toxoids-Td 2 Lf unit-2 Lf unit/0.5 mL IM suspension RxNorm: 139 Take 0.5 Miscellaneous Intramuscular 11/12/19 22 022 Inactive need tdap - nursing to administer upon arrival pregabalin 50 mg capsule RxNorm: 096842 Take 1 Capsule(s) Oral QAM every morning 10/16/19 Inactive pregabalin 50 mg capsule RxNorm: 591669 Take 1 Capsule(s) Oral QAM every morning 10/16/19 22 022 Inactive pregabalin 50 mg capsule RxNorm: 269413 1 Capsule(s) Oral QAM every morning 10/15/19 22 022 Inactive Shingrix (PF) 50 mcg/0.5 mL intramuscular suspension, kit RxNorm: 2203387 Administer 1/2 Milliliter(s) Intramuscular one time Nursing please administer upon arrival and once administered post a bridge message with date of administration, renewals representative, expiration date, and lot# so we can update [facility]. 10/09/19 22 022 Inactive shingrix step 1 Shingrix (PF) 50 mcg/0.5 mL intramuscular suspension, kit RxNorm: 2762863 Administer 1/2 Milliliter(s) Intramuscular one time Nursing please administer upon arrival and once administered post a bridge message with date of administration, renewals representative, expiration date, and lot# so we can update [facility]. 10/09/19 22 022 Inactive shingrix step 1 cholecalciferol (vitamin D3) 1,250 mcg (50,000 unit) capsule RxNorm: 214107 Take 1 Capsule(s) Oral QW once a [...] aspart 100 unit/mL (3 mL) subcutaneous RxNorm: 9198825 Inject 10 Unit(s) Subcutaneous QHS every night at bedtime with nighttime snack 10/08/19 22 Inactive Shingrix (PF) 50 mcg/0.5 mL intramuscular suspension, kit RxNorm: 5429582 ADMINISTER 2-DOSE SERIES PER CDC GUIDELINES 10/08/19 22 Active Shingrix (PF) 50 mcg/0.5 mL intramuscular suspension, kit RxNorm: 7116661 ADMINISTER 2-DOSE SERIES PER CDC GUIDELINES 10/08/19 22 Inactive Novolog Flexpen U-100 Insulin aspart 100 unit/mL (3 mL) subcutaneous RxNorm: 2418095 Inject 36 Unit(s) Subcutaneous TID in addition to sliding scale 10/08/19 22 Inactive Novofine Autocover 30 gauge x 1/3 needle RxNorm: Use 1 Miscellaneous UD as directed Use 1 needle as directed to administer insulin 5 times a day Dx:E11.42. 10/03/19 Inactive ok to substitute with any covered alternative pen needle benzoyl peroxide 10 % topical cleanser RxNorm: 029588 Apply 1 Application Topical QD apply to face, wash rinse and dry once daily (may change to QOD if drying) 08/19/19 22 022 Inactive (%covered by insurance) #60ml refill 11 dx: acne benzoyl peroxide 10 % topical cleanser RxNorm: 439828 Apply 1 Application Topical QD apply to face, wash rinse and dry once daily (may change to QOD if drying) 08/19/19 22 022 Inactive (%covered by insurance) #60ml refill 11 dx: acne benzoyl peroxide 10 % topical cleanser RxNorm: 419011 Apply 1 Application Topical QD apply to face, wash rinse and dry once daily (may change to QOD if drying) 08/19/19 22 022 Inactive (%covered by insurance) #60ml refill 11 dx: acne Lyrica 50 mg capsule RxNorm: 663451 Take 1 Capsule(s) Oral QAM every morning Take 1 capsule by mouth once daily 08/19/19 22 022 Inactive benzoyl peroxide 10 % topical cleanser RxNorm: 428142 Apply 1 Application Topical QD apply to face, wash rinse and dry once daily (may change to QOD if drying) 08/19/19 22 022 Inactive (%covered by insurance) #60ml refill 11 dx: acne Lyrica 100 mg capsule RxNorm: 517995 Take 1 Capsule(s) Oral QHS every night at bedtime Take 1 capsule by mouth once daily at bedtime 08/19/19 22 022 Inactive Lyrica 100 mg capsule RxNorm: 788279 Take 1 Capsule(s) Oral QHS every night at bedtime Take 1 capsule by mouth once daily at bedtime 08/16/19 22 022 Inactive Lyrica 50 mg capsule RxNorm: 721270 Take 1 Capsule(s) Oral QAM every morning Take 1 capsule by mouth once daily 08/16/19 22 022 Inactive Levemir FlexTouch U-100 Insulin 100 unit/mL (3 mL) subcutaneous pen RxNorm: 656307 Inject 86 Unit(s) Subcutaneous BID 08/05/19 22 022 Inactive d/c 83units BID Lyrica 100 mg capsule RxNorm: 994443 Take 1 Capsule(s) Oral QHS every night at bedtime Take 1 capsule by mouth once daily at bedtime 07/14/19 22 022 Inactive Lyrica 50 mg capsule RxNorm: 204327 Take 1 Capsule(s) Oral QAM every morning Take 1 capsule by mouth once daily 07/14/19 22 022 Inactive Levemir FlexTouch U-100 Insulin 100 unit/mL (3 mL) subcutaneous pen RxNorm: 088393 Inject 83 Unit(s) Subcutaneous BID 07/08/19 22 [...] test strip hydralazine 50 mg tablet RxNorm: 049743 Take 1 Tablet(s) Oral QID 05/05/20 21 022 Inactive venlafaxine ER 225 mg tablet,extended release 24 hr RxNorm: 890624 Take 1 Tablet(s) Oral QD 05/05/20 21 021 Inactive venlafaxine ER 225 mg tablet,extended release 24 hr RxNorm: 491331 Take 1 Tablet(s) Oral QD 12/20 022 Inactive isosorbide mononitrate ER 30 mg tablet,extended release 24 hr RxNorm: 559240 Take 1 Tablet(s) Oral QD 05/05/20 21 024 Inactive hydralazine 50 mg tablet RxNorm: 031625 Take 1 Tablet(s) Oral QID 05/05/20 21 021 Inactive aspirin 81 mg tablet,delayed release RxNorm: 133645 Take 1 Tablet(s) Oral QD 03/31/20 022 Inactive Vitamin D2 1,250 mcg (50,000 unit) capsule RxNorm: 6149326 Take 1 Capsule(s) Oral QW once a week x 12 weeks 03/31/20 Inactive Vitamin D2 1,250 mcg (50,000 unit) capsule RxNorm: 0198072 Take 1 Capsule(s) Oral QW once a week 03/31/20 021 Inactive Zetia 10 mg tablet RxNorm: 679503 Take 1 Tablet(s) Oral QD 03/31/20 024 Inactive Zetia 10 mg tablet RxNorm: 954471 Take 1 Tablet(s) Oral QD 03/31/20 021 Inactive hydralazine 25 mg tablet RxNorm: 611829 Take 1 Tablet(s) Oral QID 03/31/20 21 021 Inactive hydralazine 25 mg tablet RxNorm: 368829 Take 1 Tablet(s) Oral QID 03/31/20 021 Inactive hydralazine 10 mg tablet RxNorm: 893966 Take 1 Tablet(s) Oral QID 03/03/20 021 Inactive cephalexin 500 mg tablet RxNorm: 252903 Take 1 Tablet(s) Oral QID 02/27/20 021 Inactive cephalexin 500 mg tablet RxNorm: 992413 Take 1 Tablet(s) Oral QID 02/27/20 021 Inactive lisinopril 40 mg tablet RxNorm: 359114 Take 1 Tablet(s) Oral QD 02/11/20 21 023 Inactive Eliquis 5 mg tablet RxNorm: 0801534 Take 1 Tablet(s) Oral BID 01/05/20 022 Inactive Eliquis 5 mg tablet RxNorm: 5018581 Take 2 Tablet(s) Oral QD 01/01/20 021 Inactive Lyrica 50 mg capsule RxNorm: 798785 Take 1 Capsule(s) Oral QAM every morning 12/24/19 21 021 Inactive Lyrica 100 mg capsule RxNorm: 978698 Take 1 Capsule(s) Oral QHS every night at bedtime 12/24/19 021 Inactive clotrimazole 1 % topical cream RxNorm: 832495 Apply to right foot and toes Topical BID 12/04/19 21 023 Inactive metoprolol succinate ER 200 mg tablet,extended release 24 hr RxNorm: 718010 Take 1 Tablet(s) Oral QD 12/04/19 023 Inactive ciprofloxacin 500 mg tablet RxNorm: 902983 Take 1 Tablet(s) Oral QD 11/30/19 021 Inactive DX ofloxacin otic drops Accu-Chek Guide test strips RxNorm: USE 1 TO CHECK GLUCOSE 4 TIMES DAILY AND NEEDED 11/15/19 21 023 Inactive Blood Glucose Test strips RxNorm: Use 1 Test Strip QID at PRN 11/05/19 21 023 Inactive E11.42 lisinopril 30 mg tablet RxNorm: 340118 Take 1 Tablet(s) Oral QD 10/30/19 021 Inactive lisinopril 20 mg tablet RxNorm: 903361 Take 1 Tablet(s) Oral QD 10/23/19 021 Inactive lisinopril 20 mg tablet RxNorm: 057248 Take 1 Tablet(s) Oral QD 10/23/19 21 021 Inactive lisinopril 10 mg tablet RxNorm: 430131 Take 1 Tablet(s) Oral QD 10/02/19 21 021 Inactive icosapent ethyl 1 gram capsule RxNorm: 1972930 Take 2 Capsule(s) (2 gm) Oral BID with meals 09/12/19 21 024 Inactive Okay to dispense one 2gm tab if you have that available. icosapent ethyl 1 gram capsule RxNorm: 6619127 Take 2 Capsule(s) Oral BID 09/12/19 21 021 Inactive Okay to dispense one 2gm tab if you have that available. amlodipine 10 mg tablet RxNorm: 202025 Take 1 Tablet(s) Oral QD 09/04/19 022 Inactive aspirin 81 mg tablet,delayed release RxNorm: 420367 Take 1 Tablet(s) Oral QD 09/04/19 021 Inactive Levemir FlexTouch U-100 Insulin 100 unit/mL (3 mL) subcutaneous pen RxNorm: 951604 Inject 150 Unit(s) Subcutaneous BID 09/04/19 022 Inactive venlafaxine ER 150 mg tablet,extended release 24 hr RxNorm: 584866 Take 1 Tablet(s) Oral QD 09/04/19 Inactive clotrimazole-betame thasone 1 %-0.05 % topical cream RxNorm: 750141 Apply to rash on red area on left abdomen/chest Topical BID 08/10/19 21 021 Inactive amlodipine 5 mg tablet RxNorm: 283909 Take 1 Tablet(s) Oral QD 07/31/19 Inactive cephalexin 500 mg tablet RxNorm: 700997 Take 1 Tablet(s) Oral BID BID - Twice Daily 07/31/19 021 Inactive Start 08/01/20 pantoprazole 40 mg tablet,delayed release RxNorm: 599514 Take 1 Tablet(s) Oral QAM every morning 07/08/19 022 Inactive senna 8.6 mg tablet RxNorm: 100581 Take 1 Tablet(s) Oral QD 07/08/19 022 Inactive carbamazepine 200 mg tablet RxNorm: 392135 Take 1 Tablet(s) Oral BID 07/08/19 21 022 Inactive clopidogrel 75 mg tablet RxNorm: 890029 Take 1 Tablet(s) Oral QD 07/08/19 021 Inactive Blood Glucose Test strips RxNorm: Use 1 Test Strip QID at PRN 07/08/1907 07/22/2 021 Inactive E11.42 Novolog Flexpen U-100 Insulin aspart 100 unit/mL (3 mL) subcutaneous RxNorm: 8125024 Administer per sliding scale Milliliter(s) Subcutaneous TID 151-200: 10 u; 201-250: 20 u; 251-300: 30 u; 301-350: 40 u; 351-400: 50 u. 07/08/19 022 Inactive lisinopril 5 mg tablet RxNorm: 154199 Take 1 Tablet(s) Oral QD 07/08/19 21 021 Inactive Novolog Flexpen U-100 Insulin aspart 100 unit/mL (3 mL) subcutaneous RxNorm: 8350708 Inject 85 Unit(s) Subcutaneous TID 07/08/19 022 Inactive pravastatin 80 mg tablet RxNorm: 545765 Take 1 Tablet(s) Oral QHS every night at bedtime 07/08/19 023 Inactive clotrimazole 1 % topical cream RxNorm: 737740 Apply to bilateral groin areas Topical BID 07/08/19 022 Inactive metoprolol succinate ER 200 mg tablet,extended release 24 hr RxNorm: 395966 Take 1 Tablet(s) Oral QD 07/08/19 021 Inactive Vitamin D3 25 mcg (1,000 unit) tablet RxNorm: 564671 Take 1 Tablet(s) Oral QD 07/08/19 021 Inactive isosorbide dinitrate 30 mg tablet RxNorm: 996317 Take 1 Tablet(s) Oral QD 07/08/19 021 Inactive Levemir FlexTouch U-100 Insulin 100 unit/mL (3 mL) subcutaneous pen RxNorm: 643920 Inject 140 Unit(s) Subcutaneous BID 07/08/19 021 Inactive torsemide 20 mg tablet RxNorm: 674845 Take 1 Tablet(s) Oral QD 07/08/19 21 023 Inactive venlafaxine 75 mg tablet RxNorm: 130980 Take 1 Tablet(s) Oral QD 07/08/19 021 Inactive acetaminophen 500 mg tablet RxNorm: Take 1 Tablet(s) Oral TID as needed for headache 06/18/19 21 021 Inactive acetaminophen 500 mg tablet RxNorm: 683638 Take 1 Tablet(s) Oral TID as needed for headache 06/18/19 21 021 Inactive Lyrica 100 mg capsule RxNorm: 432654 Take 1 Capsule(s) Oral QHS every night at bedtime 06/11/19 21 021 Inactive Lyrica 50 mg capsule RxNorm: 399415 Take 1 Capsule(s) Oral QAM every morning 06/10/19 21 021 Inactive hydrocortisone 2.5 % topical cream RxNorm: 942398 Apply to bilateral groin creases Topical BID 05/15/20 20 021 Inactive clotrimazole 1 % topical cream RxNorm: 836484 Apply to bilateral groin areas Topical BID 05/15/20 20 021 Inactive Lyrica 50 mg capsule RxNorm: 718986 Take 1 Capsule(s) Oral QAM every morning 05/14/20 20 020 Inactive Lyrica 100 mg capsule RxNorm: 459681 Take 1 Capsule(s) Oral QHS every night [...] Inactive Nystop 100,000 unit/gram topical powder RxNorm: 702441 Apply to abd folds, under breasts and L side of groin Topical BID x 14 days, then BID PRN 04/08/20 20 Inactive dx: yeast dermatitis Lyrica 100 mg capsule RxNorm: 547982 Take 1 Capsule(s) Oral QHS every night at bedtime 03/13/20 20 Inactive Lyrica 50 mg capsule RxNorm: 230360 Take 1 Capsule(s) Oral QAM every morning 03/13/20 20 Inactive ketoconazole 2 % shampoo RxNorm: 095230 Apply Topical two times a week with showers 03/11/20 20 Inactive cholecalciferol (vitamin D3) 50 mcg (2,000 unit) tablet RxNorm: 737082 Take 1 Tablet(s) Oral QD 03/11/20 20 Inactive Zetia 10 mg tablet RxNorm: 140951 Take 1 Tablet(s) Oral QD 03/07/20 20 Inactive Zetia 10 mg tablet RxNorm: 273201 Take 1 Tablet(s) Oral QD 03/07/20 20 Inactive Lyrica 50 mg capsule RxNorm: 426967 Take 1 Capsule(s) Oral QAM every morning 02/15/20 20 Inactive Lyrica 100 mg capsule RxNorm: 787517 Take 1 Capsule(s) Oral QHS every night at bedtime 02/15/20 20 Inactive Lyrica 100 mg capsule RxNorm: 730796 Take 1 Capsule(s) Oral QHS every night at bedtime 02/15/20 20 Inactive Lyrica 50 mg capsule RxNorm: 736739 Take 1 Capsule(s) Oral QAM every morning 02/15/20 20 Inactive metoprolol succinate ER 200 mg tablet,extended release 24 hr RxNorm: 879983 Take 1 Tablet(s) Oral QD 08/12/19 23 Active loperamide 2 mg capsule RxNorm: 594831 Take 1 Capsule(s) Oral QID as needed 06/12/19 Active hydralazine 50 mg tablet RxNorm: 889355 Take 1 Tablet(s) Oral QID 08/12/19 23 Active Soft Touch Lancets RxNorm: miscellaneous 03/04/20 24 Active venlafaxine ER 75 mg capsule,extended release 24 hr RxNorm: 386260 Take 3 Capsule(s) Oral QD 06/12/19 22 023 Inactive polyethylene glycol 3350 17 gram/dose oral powder RxNorm: 736460 Take 17=1 capful Gram(s) Oral BID as needed mix with 4-8oz of liquid 06/12/19 22 024 Inactive icosapent ethyl 1 gram capsule RxNorm: 9317368 Take 2 Capsule(s) (2 gm) Oral BID with meals 10/07/19 23 023 Inactive Okay to dispense one 2gm tab if you have that available. Levemir FlexTouch U-100 Insulin 100 unit/mL (3 mL) subcutaneous pen RxNorm: 724311 Inject 80 Unit(s) Subcutaneous BID 07/14/19 23 023 Inactive Novolog Flexpen U-100 Insulin aspart 100 unit/mL (3 mL) subcutaneous RxNorm: 1580020 Insert 30 Unit(s) Subcutaneous TID with meals [...] Status Date Appointment: Brian Munson WPtel: [address] [place], [place] [phone] AWV 02/08/2024 Appointment: Brian Munson WPtel: [address] [place], [place] [phone] [place] F/U 01/11/2024 Appointment: Sandra Clark WPtel: [address] [place], [place] [phone] Telehealth Psych Follow Up 12/09 Appointment: Tapan Shirley WPtel: [address] [place], [place] [phone] TCM 10/26/2022 Referral: [facility] WPtel: [address], [address] [id number] Referral Records Received 09/21/2022 Appointment: Tapan Shirley WPtel: [address] [place], [place] [phone] [place] F/U 08/11/2022 Appointment: Tapan Shirley WPtel: [address] [place], [place] [phone] [place] F/U 07/14/2022 Appointment: Tapan Shirley WPtel: [address] [facility] [address] [id number] [place] F/U 02/10/2022 Referral: [facility] CARLO WPtel: [address] [facility] [address] [id number] [place] Referral Completed 05/28/2021 Referral: General Cardiology [...] Sister Jyotsna involved in his care cell# [phone] Guardian: Giulia (tapan met in person 09/01/21), [...] note from 11.08.2023 at [facility] (follow up 6 months)Colon & Rectal Surgery visit scheduled for 03/08/24 with Matilde Pérez PA-C. 02/08/2024
--- OUTSIDE RECORDS SUMMARY | 2024-03-09 01:42 | XMS_ITS | CCD ---
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 Jackscrew Man Name Role Phone Arpit MCKINLEY-C, Harrison Primary Care Provider Leona vailable Bosque SCRAP BUNCH MAKER-C, Harrison Chronic Care Management U navailable Summary Purpose DataExchange Insurance Providers Payer name Policy type / Coverage type Covered libertarian ID Effective Begin Date Effective End Date [place] Part B [id number] Unknown Unknown [place] Medicare Part B [id number] Unknown Unknown Family history Sister Brittany Suggs Diagnosis Age At Onset No Family Disease Entered N/A Runs in the family Diagnosis Age At Onset No Known Diseases N/A Sister Blanka Mcduffie Diagnosis Age At Onset No Family Disease Entered N/A Social History Social History Element Codes Description Effec tive Dates Tobacco history SNOMED CT: 401656933 Never smoker 01/16 Sexually Active? Unknown No [...] Living arrangements Unknown 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 09/03/[address]: 946902540 No Alcohol Consum ption 09/02/2020 Allergies, Adverse Reactions, Alerts Substance Reaction Codes Entered Date Inactivated Date Status * NO KNOWN FOOD ALLERGIES Unknown 07/13/2023 No Inactive Date Active LISINOPRIL RxNorm: 67903 02/12/2020 No Inactive Da te Active Metformin [...] E78. 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 Other residential (current) dr ug therapy ICD-10: Z79.899 ICD-9: [...] 09/07/2023 Resolved Coronary artery disease invo lving [place] coronary artery of [place] heart, angina presence unspecified ICD-10: I25.10 ICD-9: [...] Insulin 100 unit/mL (3 mL) subcutaneous RxNorm: 3011269 Inject 40 Unit(s) Subcutaneous BID 03/07/20 025 Active Please dispense one month supply. Humulin R U-500 (Concentrated) Insulin 500 unit/mL subcutaneous soln RxNorm: 889445 Inject 100 Unit(s) Subcutaneous AC before meals [...] PRN) to be use with new Accu [place] meter 03/04/20 Inactive ok to substitute with any covered alternative test strip nystatin 100,000 unit/gram topical powder RxNorm: 200993 Apply 1 Application Topical BID as needed [...] (Concentrated) Insulin 500 unit/mL subcutaneous soln RxNorm: 277071 Inject 100 Unit(s) Subcutaneous TID 02/17/20 24 024 Inactive Humulin R U-500 (Concentrated) Insulin 500 unit/mL subcutaneous soln RxNorm: 960511 Inject 100 Unit(s) Subcutaneous TID 02/10/20 24 024 Inactive Basaglar aVlorieikPen U-100 Insulin 100 unit/mL (3 mL) subcutaneous RxNorm: 3534759 Inject 30 Unit(s) Subcutaneous BID 02/10/20 24 024 Inactive Please dispense one month supply. pregabalin 100 mg capsule RxNorm: 893844 Take 1 Capsule(s) Oral QAM every morning 02/07/20 24 024 Active isosorbide mononitrate ER 60 mg tablet,extended release 24 hr RxNorm: 896548 Take 1 Tablet(s) Oral QD 02/01/20 24 025 Active aripiprazole 15 mg tablet RxNorm: 045920 Take 1/2 Tablet(s) Oral QD 02/01/20 24 025 Active torsemide 20 mg tablet RxNorm: 083535 1 TAB ORALLY DAILY (DX: EDEMA) 01/27/20 No Stop Date Active potassium chloride ER 20 mEq tablet,extended release(part/cryst) RxNorm: 8645034 2 TABS (40MEQ) ORALLY TWICE DAILY (DX: HYPOKALEMIA) 01/27/20 24 No Stop Date Active cephalexin 500 mg capsule RxNorm: 597621 Take 1 Capsule(s) Oral QID 12/17/19 24 024 Inactive cephalexin 500 mg capsule RxNorm: 269246 Take 1 Capsule(s) Oral QID 12/17/19 24 024 Inactive acetaminophen 500 mg tablet RxNorm: 338664 (MAX APAP:4GM/24HR) Take 1 Tablet(s) Oral TID as needed for pain 12/10/19 24 024 Active torsemide 20 mg tablet RxNorm: 927908 Take 1 Tablet(s) Oral QD 10/26/19 24 024 Inactive potassium chloride ER 20 mEq tablet,extended release RxNorm: 790459 Take 2 Tablet(s) Oral BID 10/26/19 24 Active torsemide 20 mg tablet RxNorm: 125644 Take 1 Tablet(s) Oral QD 10/26/19 24 Inactive potassium chloride ER 20 mEq tablet,extended release RxNorm: 009743 Take 2 Tablet(s) Oral BID 10/26/19 24 Inactive Artificial Tears (PF) 0.1 %-0.3 % drops in a dropperette RxNorm: 777457 Apply 1-2 Drop(s) Both eyes BID as needed 09/28/19 24 Active erythromycin 5 mg/gram (0.5 %) eye ointment RxNorm: 928945 Apply 1 Application Both eyes QHS every night at bedtime Instill ~1 cm ribbon into affected eye 09/28/19 24 024 Inactive Artificial Tears (PF) 0.1 %-0.3 % drops in a dropperette RxNorm: 414536 Apply 1-2 Drop(s) Both eyes BID as needed 09/28/19 24 Inactive erythromycin 5 mg/gram (0.5 %) eye ointment RxNorm: 607265 Apply 1 Application Both eyes QHS every night at bedtime Instill ~1 cm ribbon into affected eye 09/28/19 24 024 Inactive acetaminophen 500 mg tablet RxNorm: 311799 (MAX APAP:4GM/24HR) Take 1 Tablet(s) Oral TID as needed for pain 09/24/19 24 024 Inactive carvedilol 25 mg tablet RxNorm: 702983 Take 1 Tablet(s) Oral QD 09/08/19 24 No Stop Date Active pregabalin 100 mg capsule RxNorm: 725752 Take 1 Capsule(s) Oral QAM every morning 09/07/19 24 024 Inactive rosuvastatin 40 mg tablet RxNorm: 497004 Take 1 Tablet(s) Oral QPM every evening 07/13/19 24 No Stop Date Active ezetimibe 10 mg tablet RxNorm: 419071 Take 1 Tablet(s) Oral QD 07/13/19 24 No Stop Date Active bisacodyl 10 mg rectal suppository RxNorm: 901829 Insert 1 Suppository Rectal QD as needed 07/13/19 24 No Stop Date Active polyethylene glycol 3350 17 gram/dose oral powder RxNorm: 939354 Take 17 Gram(s) Oral BID as needed mix in 4-8ox water 07/13/19 24 No Stop Date Active ketoconazole 2 % shampoo RxNorm: 379524 Apply 1 Application Topical UD as directed 07/13/19 24 No Stop Date Active Ozempic 1 mg/dose (4 mg/3 mL) subcutaneous pen injector RxNorm: 6844052 Inject 1 Milligram(s) Subcutaneous QW once a week 07/13/19 24 No Stop Date Active Guaifenesin AC 10 mg-100 mg/5 mL oral liquid RxNorm: 762249 Take 10 Milliliter(s) Oral Q4H every four hours as needed 07/13/19 24 No Stop Date Active ammonium lactate 12 % topical cream RxNorm: 541490 Apply 1 Application Topical BID 07/13/19 24 No Stop Date Active hydrocortisone 2.5 % topical cream RxNorm: 773566 Apply 1 Application Topical BID as needed 07/13/19 24 No Stop Date Active rosuvastatin 20 mg sprinkle capsule RxNorm: 7604081 Take 1 Capsule(s) Oral QD 07/13/19 24 No Stop Date Active Vascepa 1 gram capsule RxNorm: 6597718 Take 2 Capsule(s) Oral BID 07/13/19 24 No Stop Date Active venlafaxine ER 75 mg capsule,extended release 24 hr RxNorm: 599084 Take 3 Capsule(s) Oral QD 07/13/19 24 No Stop Date Active aripiprazole 15 mg tablet RxNorm: 315891 Take 1/2 Tablet(s) Oral QD 07/13/19 24 024 Inactive isosorbide mononitrate ER 60 mg tablet,extended release 24 hr RxNorm: 790924 Take 1 Tablet(s) Oral QD 07/13/19 24 024 Inactive Basaglar KwikPen U-100 Insulin 100 unit/mL (3 mL) subcutaneous RxNorm: 6671446 Inject 30U SubQ twice daily 07/07/19 24 024 Inactive Please dispense one month supply. Basaglar KwikPen U-100 Insulin 100 unit/mL (3 mL) subcutaneous RxNorm: 5000160 Inject 30U SubQ twice daily 07/07/19 24 024 Inactive Please dispense one month supply. pregabalin 150 mg capsule RxNorm: 785417 Take 1 Capsule(s) Oral QHS every night at bedtime 07/05/19 24 024 Inactive pregabalin 150 mg capsule RxNorm: 774490 Take 1 Capsule(s) Oral QHS every night at bedtime 07/05/19 24 024 Inactive polyethylene glycol 3350 17 gram/dose oral powder RxNorm: 580816 Take 1 Packet Oral QD as needed (1 packet = 17g) mix with 4-8oz of liquid 06/15/19 24 024 Inactive bisacodyl 10 mg rectal suppository RxNorm: 784577 Insert one suppository per rectum once daily as needed for constipation 06/15/19 24 024 Inactive bisacodyl 10 mg rectal suppository RxNorm: 372522 Insert one suppository per rectum once daily as needed for constipation 06/15/19 24 024 Inactive pregabalin 100 mg capsule RxNorm: 905315 Take 1 Capsule(s) Oral QAM every morning 04/27/20 23 024 Inactive Levemir FlexPen 100 unit/mL (3 mL) solution subcutaneous insulin pen RxNorm: 357669 Inject 30 Unit(s) Subcutaneous BID 04/27/20 23 024 Inactive rosuvastatin 40 mg tablet RxNorm: 349948 Take 1 Tablet(s) Oral QPM every evening 04/16/20 024 Inactive D/C rosuvastatin 20mg venlafaxine ER 75 mg capsule,extended release 24 hr RxNorm: 113212 Take 3 Capsule(s) Oral QD 04/14/20 23 023 Inactive pregabalin 100 mg capsule RxNorm: 528539 Take 1 Capsule(s) Oral QAM every morning [...] strip clotrimazole 1 % topical cream RxNorm: 458918 Take apply topically to abdominal folds twice daily for 14 days 03/12/20 23 024 Inactive Ozempic 1 mg/dose (4 mg/3 mL) subcutaneous pen injector RxNorm: 5185419 Inject 1 Milligram(s) Subcutaneous QW once a week 03/11/20 023 Inactive rosuvastatin 20 mg tablet RxNorm: 641904 Take 1 Tablet(s) Oral QD 02/26/20 023 Inactive d/c pravastatin 80mg Ozempic 1 mg/dose (4 mg/3 mL) subcutaneous pen injector RxNorm: 8273520 Inject 1 Milligram(s) Subcutaneous QW once a week 02/20/20 23 023 Inactive pregabalin 150 mg capsule RxNorm: 449282 Take 1 Capsule(s) Oral HS at bed time 02/19/20 23 023 Inactive pregabalin 100 mg capsule RxNorm: 856838 Take 1 Capsule(s) Oral QAM every morning 02/18/20 23 023 Inactive venlafaxine ER 75 mg capsule,extended release 24 hr RxNorm: 097770 Take 3 Capsule(s) Oral QD 02/04/20 023 Inactive FreeStyle Chema 2 Sensor kit RxNorm: use as directed 02/04/20 23 023 Inactive FreeStyle Chema 2 Sensor kit RxNorm: use as directed 02/04/20 23 024 Inactive fluconazole 150 mg tablet RxNorm: 029256 Take 1 Tablet(s) Oral on day 3 and on day 6 02/03/20 23 024 Inactive chlorthalidone 25 mg tablet RxNorm: 056500 Take 1 Tablet(s) Oral QAM every morning 02/03/20 23 No Stop Date Active venlafaxine ER 150 mg capsule,extended release 24 hr RxNorm: 632440 Take 1 Capsule(s) Oral QD 02/03/20 023 Inactive acetaminophen 500 mg tablet RxNorm: 128441 1 TABLET ORALLY 3 TIMES DAILY (MAX APAP:4GM/24HR) 12/15/19 023 Inactive clotrimazole 1 % topical cream RxNorm: 480052 apply 1g topically to top of feet and in between toes BID 12/09/19 23 023 Inactive potassium chloride ER 20 mEq tablet,extended release RxNorm: 093909 Take 1 Tablet(s) Oral BID 12/09/19 024 Inactive d/c 20mEq once daily (sent from hospital) nystatin 100,000 unit/gram topical powder RxNorm: 504815 APPLY TO AFFECTED AREAS TOPICALLY 2 TIMES DAILY 11/21/19 023 Inactive Nystop 100,000 unit/gram topical powder RxNorm: 215199 Apply to abd folds, under breasts and L side of groin Topical BID x 14 days, then BID PRN 11/20/19 023 Inactive dx: yeast dermatitis [place] Ultra Strength 4 %-30 %-10 % topical cream RxNorm: 670338 Apply 1 Gram(s) Topical QID PRN to feet and legs for neuropathic pain 11/11/19 024 Inactive clotrimazole 1 % topical cream RxNorm: 764501 Apply 1/2 Gram(s) Topical BID Apply to affected areas of groin, periarea, and abdominal topically 2 times daily 11/10/19 023 Inactive hydrocortisone 2.5 % topical cream RxNorm: 218597 Apply 1/2 Gram(s) Topical BID as needed 11/10/19 024 Inactive Levemir FlexPen 100 unit/mL (3 mL) solution subcutaneous insulin pen RxNorm: 248885 Inject 30 Unit(s) Subcutaneous BID 10/07/19 23 023 Inactive Humulin R U-500 (Concentrated) Insulin 500 unit/mL subcutaneous soln RxNorm: 429500 Inject 100 Unit(s) Subcutaneous TID 10/07/19 23 024 Inactive Ozempic 0.25 mg or 0.5 mg (2 mg/3 mL) subcutaneous pen injector RxNorm: 6172373 Inject 1/2 Milligram(s) Subcutaneous QW once a week 10/07/19 024 Inactive aripiprazole 15 mg tablet RxNorm: 927875 1/2 TAB (7.5MG) ORALLY DAILY (DX:MAJOR DEPRESSIVE DISORDER) 09/23/19 23 023 Inactive Accu-Chek Guide test strips RxNorm: Use 1 Test Strip QID 09/15/19 023 Inactive ok to substitute with any covered alternative test strip Lancets,Thin 28 gauge RxNorm: Use 1 as directed QID 09/15/19 23 023 Inactive torsemide 20 mg tablet RxNorm: 450721 Take 1 Tablet(s) Oral BID 09/09/19 23 024 Inactive d/c once daily dosing carvedilol 25 mg tablet RxNorm: 017039 Take 1 Tablet(s) Oral QD 08/25/19 23 024 Inactive pregabalin 150 mg capsule RxNorm: 398709 1 Capsule(s) Oral HS at bed time 08/18/19 23 023 Inactive pregabalin 100 mg capsule RxNorm: 063537 1 Capsule(s) Oral QAM every morning 08/18/19 23 023 Inactive carvedilol 25 mg tablet RxNorm: 300450 1 Tablet(s) Oral QD 07/28/19 23 023 Inactive lisinopril 20 mg tablet RxNorm: 151405 Give 1 Tablet(s) Oral QD 07/28/19 23 023 Inactive Lyrica 150 mg capsule RxNorm: 867410 Take 1 Capsule(s) Oral QHS every night at bedtime 07/19/19 23 023 Inactive d/c 100mg dose Diflucan 150 mg tablet RxNorm: 970489 Take 1 Tablet(s) Oral QD repeat on day 3 and 6 07/19/19 23 023 Inactive pregabalin 100 mg capsule RxNorm: 970111 Take 1 Capsule(s) Oral QAM every morning 07/19/19 23 023 Inactive gatifloxacin 0.5 % eye drops RxNorm: 324882 Instill 1 Drop(s) as directed TID Instill 1 drop in to affected eye(s) starting 1 day prior to surgery and continue until gone (do not exceed 4 weeks). 07/13/19 23 023 Inactive carvedilol 25 mg tablet RxNorm: 936429 2 Tablet(s) Oral BID 07/13/19 023 Inactive Humulin R Regular U-100 Insulin 100 unit/mL injection solution RxNorm: 744593 85 Unit(s) Injection TID 07/13/19 023 Inactive ketorolac 0.5 % eye drops RxNorm: 330615 Instill 1 Drop(s) as directed QID Instill 1 drop into affected eye(s) 4 times daily starting 1 day prior to surgery and continue until gone (do not exceed 4 weeks). 07/13/19 023 Inactive Diflucan 150 mg tablet RxNorm: 663848 Take 1 Tablet(s) Oral QD repeat on day 3 and 6 06/30/19 023 Inactive Accu-Chek Guide test strips RxNorm: Use 1 Test Strip QID Use 1 test strip to monitor blood glucose 4 times daily and as needed. Dx:E11.42. 06/23/19 023 Inactive ok to substitute with any covered alternative test strip dextromethorphan-gu aifenesin 10 mg-100 mg/5 mL oral liquid RxNorm: 534438 Take 10 Milliliter(s) Oral every 4 hours as needed for cough 06/19/19 023 Inactive dextromethorphan-gu aifenesin 10 mg-100 mg/5 mL oral liquid RxNorm: 507416 Take 10 Milliliter(s) Oral every 4 hours as needed for cough 06/19/19 23 023 Inactive Lyrica 150 mg capsule RxNorm: 191245 Take 1 Capsule(s) Oral QHS every night at bedtime 06/18/19 23 023 Inactive d/c 100mg dose aripiprazole 15 mg tablet RxNorm: 202293 1/2 TAB (7.5MG) ORALLY DAILY (DX:MAJOR DEPRESSIVE DISORDER) 06/05/19 23 023 Inactive pregabalin 100 mg capsule RxNorm: 362703 1 Capsule(s) Oral QAM every morning 06/02/19 023 Inactive Banophen 50 mg capsule RxNorm: 1421262 Take 1 Capsule(s) Oral Q6H every 6 hours as needed 05/19/19 No Stop Date Active Novolog Flexpen U-100 Insulin aspart 100 unit/mL (3 mL) subcutaneous RxNorm: 3955317 Inject 10 Unit(s) Subcutaneous QHS every night at bedtime with nighttime snack 04/08/20 022 Inactive Novolog Flexpen U-100 Insulin aspart 100 unit/mL (3 mL) subcutaneous RxNorm: 2028134 Inject 42 Unit(s) Subcutaneous TID in addition to sliding scale 04/08/20 022 Inactive d/c 36u albuterol sulfate HFA 90 mcg/actuation aerosol inhaler RxNorm: 2747480 Take 2 Puff(s) Inhalation Q4H every four hours as needed as needed for SOB, cough, or wheezing 04/07/20 030 Active Banophen 50 mg capsule RxNorm: 4552835 Take 1 Capsule(s) Oral Q6H every 6 hours as needed 04/06/20 023 Inactive diphenhydramine 50 mg tablet RxNorm: 4537106 Take 1 Tablet(s) Oral Q6H every 6 hours as needed 04/06/20 022 Inactive diphenhydramine 50 mg tablet RxNorm: 8061808 1 Tablet(s) Oral Q6H every 6 hours as needed 04/06/20 022 Inactive Abilify 15 mg tablet RxNorm: 444508 1/2 Tablet(s) Oral QD 03/10/20 22 023 Inactive Shingrix (PF) 50 mcg/0.5 mL intramuscular suspension, kit RxNorm: 3402733 Administer 1/2 Milliliter(s) Intramuscular QD one time shingrix step 2 ( step 1 given 11/04/21) WITH needle - Nursing please administer upon arrival and once administered post a bridge message with date of administration, workers compensation paralegal, expiration date, and lot# so we can update [facility] 02/18/20 22 Inactive dispense with needle Shingrix (PF) 50 mcg/0.5 mL intramuscular suspension, kit RxNorm: 1440086 Administer 1/2 Milliliter(s) Intramuscular QD one time shingrix step 2 ( step 1 given 11/04/21) WITH needle - Nursing please administer upon arrival and once administered post a bridge message with date of administration, workers compensation paralegal, expiration date, and lot# so we can update [facility] 02/18/20 22 022 Inactive dispense with needle polyethylene glycol 3350 17 gram/dose oral powder RxNorm: 997136 Take 17=1 capful Gram(s) Oral QD mix with 4-8oz of liquid 01/08/20 22 023 Inactive take this in addition to BID prn order Lyrica 100 mg capsule RxNorm: 325168 Take 1 Capsule(s) Oral QAM every morning 01/08/20 22 022 Inactive d/c 50mg dose acetaminophen 500 mg tablet RxNorm: 323530 Take 1 Tablet(s) Oral TID 01/08/20 22 022 Inactive d/c PRN order Lyrica 150 mg capsule RxNorm: 404439 Take 1 Capsule(s) Oral QHS every night at bedtime 01/08/20 22 023 Inactive d/c 100mg dose Abilify 5 mg tablet RxNorm: 572098 Take 1 Tablet(s) Oral QD take 1 tab po QD #30 refill 5 dx: MDD 12/12/19 22 022 Inactive Abilify 5 mg tablet RxNorm: 602919 Take 1 Tablet(s) Oral QD take 1 tab po QD #30 refill 5 dx: MDD 12/12/19 22 022 Inactive Novolog Flexpen U-100 Insulin aspart 100 unit/mL (3 mL) subcutaneous RxNorm: 7456542 Inject 42 Unit(s) Subcutaneous TID in addition to sliding scale 12/10/19 22 022 Inactive d/c 36u chlorthalidone 25 mg tablet RxNorm: 816199 Take 1 Tablet(s) Oral QAM every morning 12/10/19 22 023 Inactive pregabalin 50 mg capsule RxNorm: 813884 Take 1 Capsule(s) Oral QAM every morning 11/12/19 22 022 Inactive tetanus-diphtheria toxoids-Td 2 Lf unit-2 Lf unit/0.5 mL IM suspension RxNorm: 139 Take 0.5 Miscellaneous Intramuscular 11/12/19 22 022 Inactive need tdap - nursing to administer upon arrival pregabalin 50 mg capsule RxNorm: 436323 Take 1 Capsule(s) Oral QAM every morning 10/16/19 22 022 Inactive pregabalin 50 mg capsule RxNorm: 732263 Take 1 Capsule(s) Oral QAM every morning 10/16/19 22 022 Inactive pregabalin 50 mg capsule RxNorm: 482719 1 Capsule(s) Oral QAM every morning 10/15/19 22 022 Inactive Shingrix (PF) 50 mcg/0.5 mL intramuscular suspension, kit RxNorm: 1894969 Administer 1/2 Milliliter(s) Intramuscular one time Nursing please administer upon arrival and once administered post a bridge message with date of administration, workers compensation paralegal, expiration date, and lot# so we can update [facility]. 10/09/19 22 022 Inactive shingrix step 1 Shingrix (PF) 50 mcg/0.5 mL intramuscular suspension, kit RxNorm: 1188367 Administer 1/2 Milliliter(s) Intramuscular one time Nursing please administer upon arrival and once administered post a bridge message with date of administration, workers compensation paralegal, expiration date, and lot# so we can update [facility]. 10/09/19 22 022 Inactive shingrix step 1 cholecalciferol (vitamin D3) 1,250 mcg (50,000 unit) capsule RxNorm: 158561 Take 1 Capsule(s) Oral QW once a [...] aspart 100 unit/mL (3 mL) subcutaneous RxNorm: 7438581 Inject 10 Unit(s) Subcutaneous QHS every night at bedtime with nighttime snack 10/08/19 22 Inactive Shingrix (PF) 50 mcg/0.5 mL intramuscular suspension, kit RxNorm: 5523281 ADMINISTER 2-DOSE SERIES PER CDC GUIDELINES 10/08/19 22 Active Shingrix (PF) 50 mcg/0.5 mL intramuscular suspension, kit RxNorm: 7570656 ADMINISTER 2-DOSE SERIES PER CDC GUIDELINES 10/08/19 22 Inactive Novolog Flexpen U-100 Insulin aspart 100 unit/mL (3 mL) subcutaneous RxNorm: 1008023 Inject 36 Unit(s) Subcutaneous TID in addition to sliding scale 10/08/19 22 Inactive Novofine Autocover 30 gauge x 1/3 needle RxNorm: Use 1 Miscellaneous UD as directed Use 1 needle as directed to administer insulin 5 times a day Dx:E11.42. 10/03/19 Inactive ok to substitute with any covered alternative pen needle benzoyl peroxide 10 % topical cleanser RxNorm: 780366 Apply 1 Application Topical QD apply to face, wash rinse and dry once daily (may change to QOD if drying) 08/19/19 22 022 Inactive (%covered by insurance) #60ml refill 11 dx: acne benzoyl peroxide 10 % topical cleanser RxNorm: 240839 Apply 1 Application Topical QD apply to face, wash rinse and dry once daily (may change to QOD if drying) 08/19/19 22 022 Inactive (%covered by insurance) #60ml refill 11 dx: acne benzoyl peroxide 10 % topical cleanser RxNorm: 210103 Apply 1 Application Topical QD apply to face, wash rinse and dry once daily (may change to QOD if drying) 08/19/19 22 022 Inactive (%covered by insurance) #60ml refill 11 dx: acne Lyrica 50 mg capsule RxNorm: 052001 Take 1 Capsule(s) Oral QAM every morning Take 1 capsule by mouth once daily 08/19/19 22 022 Inactive benzoyl peroxide 10 % topical cleanser RxNorm: 008214 Apply 1 Application Topical QD apply to face, wash rinse and dry once daily (may change to QOD if drying) 08/19/19 22 022 Inactive (%covered by insurance) #60ml refill 11 dx: acne Lyrica 100 mg capsule RxNorm: 293261 Take 1 Capsule(s) Oral QHS every night at bedtime Take 1 capsule by mouth once daily at bedtime 08/19/19 022 Inactive Lyrica 100 mg capsule RxNorm: 755778 Take 1 Capsule(s) Oral QHS every night at bedtime Take 1 capsule by mouth once daily at bedtime 08/16/19 22 022 Inactive Lyrica 50 mg capsule RxNorm: 182210 Take 1 Capsule(s) Oral QAM every morning Take 1 capsule by mouth once daily 08/16/19 22 022 Inactive Levemir FlexTouch U-100 Insulin 100 unit/mL (3 mL) subcutaneous pen RxNorm: 089883 Inject 86 Unit(s) Subcutaneous BID 08/05/19 22 022 Inactive d/c 83units BID Lyrica 100 mg capsule RxNorm: 747815 Take 1 Capsule(s) Oral QHS every night at bedtime Take 1 capsule by mouth once daily at bedtime 07/14/19 22 022 Inactive Lyrica 50 mg capsule RxNorm: 602249 Take 1 Capsule(s) Oral QAM every morning Take 1 capsule by mouth once daily 07/14/19 22 022 Inactive Levemir FlexTouch U-100 Insulin 100 unit/mL (3 mL) subcutaneous pen RxNorm: 330953 Inject 83 Unit(s) Subcutaneous BID 07/08/19 22 [...] test strip hydralazine 50 mg tablet RxNorm: 394492 Take 1 Tablet(s) Oral QID 05/05/20 21 022 Inactive venlafaxine ER 225 mg tablet,extended release 24 hr RxNorm: 019467 Take 1 Tablet(s) Oral QD 05/05/20 21 021 Inactive venlafaxine ER 225 mg tablet,extended release 24 hr RxNorm: 406986 Take 1 Tablet(s) Oral QD 05/05/20 21 022 Inactive isosorbide mononitrate ER 30 mg tablet,extended release 24 hr RxNorm: 748154 Take 1 Tablet(s) Oral QD 05/05/20 21 024 Inactive hydralazine 50 mg tablet RxNorm: 089424 Take 1 Tablet(s) Oral QID 05/05/20 21 021 Inactive aspirin 81 mg tablet,delayed release RxNorm: 805866 Take 1 Tablet(s) Oral QD 03/31/20 022 Inactive Vitamin D2 1,250 mcg (50,000 unit) capsule RxNorm: 1024247 Take 1 Capsule(s) Oral QW once a week x 12 weeks 03/31/20 022 Inactive Vitamin D2 1,250 mcg (50,000 unit) capsule RxNorm: 2236293 Take 1 Capsule(s) Oral QW once a week 03/31/20 021 Inactive Zetia 10 mg tablet RxNorm: 370138 Take 1 Tablet(s) Oral QD 03/31/20 024 Inactive Zetia 10 mg tablet RxNorm: 778239 Take 1 Tablet(s) Oral QD 03/31/20 021 Inactive hydralazine 25 mg tablet RxNorm: 768763 Take 1 Tablet(s) Oral QID 03/31/20 21 021 Inactive hydralazine 25 mg tablet RxNorm: 139737 Take 1 Tablet(s) Oral QID 03/31/20 021 Inactive hydralazine 10 mg tablet RxNorm: 325442 Take 1 Tablet(s) Oral QID 03/03/20 021 Inactive cephalexin 500 mg tablet RxNorm: 838669 Take 1 Tablet(s) Oral QID 02/27/20 021 Inactive cephalexin 500 mg tablet RxNorm: 551063 Take 1 Tablet(s) Oral QID 02/27/20 21 021 Inactive lisinopril 40 mg tablet RxNorm: 016058 Take 1 Tablet(s) Oral QD 02/11/20 21 023 Inactive Eliquis 5 mg tablet RxNorm: 6319819 Take 1 Tablet(s) Oral BID 01/05/20 21 022 Inactive Eliquis 5 mg tablet RxNorm: 8894127 Take 2 Tablet(s) Oral QD 01/01/20 21 021 Inactive Lyrica 50 mg capsule RxNorm: 766883 Take 1 Capsule(s) Oral QAM every morning 12/24/19 21 021 Inactive Lyrica 100 mg capsule RxNorm: 523068 Take 1 Capsule(s) Oral QHS every night at bedtime 12/24/19 21 021 Inactive clotrimazole 1 % topical cream RxNorm: 096687 Apply to right foot and toes Topical BID 12/04/19 21 023 Inactive metoprolol succinate ER 200 mg tablet,extended release 24 hr RxNorm: 200713 Take 1 Tablet(s) Oral QD 12/04/19 21 023 Inactive ciprofloxacin 500 mg tablet RxNorm: 924409 Take 1 Tablet(s) Oral QD 11/30/19 21 021 Inactive DX ofloxacin otic drops Accu-Chek Guide test strips RxNorm: USE 1 TO CHECK GLUCOSE 4 TIMES DAILY AND NEEDED 11/15/19 21 023 Inactive Blood Glucose Test strips RxNorm: Use 1 Test Strip QID at PRN 11/05/19 21 023 Inactive E11.42 lisinopril 30 mg tablet RxNorm: 988384 Take 1 Tablet(s) Oral QD 10/30/19 021 Inactive lisinopril 20 mg tablet RxNorm: 016731 Take 1 Tablet(s) Oral QD 10/23/19 21 021 Inactive lisinopril 20 mg tablet RxNorm: 526522 Take 1 Tablet(s) Oral QD 10/23/19 21 021 Inactive lisinopril 10 mg tablet RxNorm: 557429 Take 1 Tablet(s) Oral QD 10/02/19 21 021 Inactive icosapent ethyl 1 gram capsule RxNorm: 8546411 Take 2 Capsule(s) (2 gm) Oral BID with meals 09/12/19 21 024 Inactive Okay to dispense one 2gm tab if you have that available. icosapent ethyl 1 gram capsule RxNorm: 1662227 Take 2 Capsule(s) Oral BID 09/12/19 21 021 Inactive Okay to dispense one 2gm tab if you have that available. amlodipine 10 mg tablet RxNorm: 573269 Take 1 Tablet(s) Oral QD 09/04/19 Inactive aspirin 81 mg tablet,delayed release RxNorm: 883455 Take 1 Tablet(s) Oral QD 09/04/19 21 021 Inactive Levemir FlexTouch U-100 Insulin 100 unit/mL (3 mL) subcutaneous pen RxNorm: 565429 Inject 150 Unit(s) Subcutaneous BID 09/04/19 21 022 Inactive venlafaxine ER 150 mg tablet,extended release 24 hr RxNorm: 614634 Take 1 Tablet(s) Oral QD 09/04/19 21 Inactive clotrimazole-betame thasone 1 %-0.05 % topical cream RxNorm: 432407 Apply to rash on red area on left abdomen/chest Topical BID 08/10/19 21 Inactive amlodipine 5 mg tablet RxNorm: 779335 Take 1 Tablet(s) Oral QD 07/31/19 Inactive cephalexin 500 mg tablet RxNorm: 655867 Take 1 Tablet(s) Oral BID BID - Twice Daily 07/31/19 Inactive Start 08/01/20 pantoprazole 40 mg tablet,delayed release RxNorm: 420189 Take 1 Tablet(s) Oral QAM every morning 07/08/19 022 Inactive senna 8.6 mg tablet RxNorm: 712585 Take 1 Tablet(s) Oral QD 07/08/19 022 Inactive carbamazepine 200 mg tablet RxNorm: 199340 Take 1 Tablet(s) Oral BID 07/08/19 022 Inactive clopidogrel 75 mg tablet RxNorm: 588779 Take 1 Tablet(s) Oral QD 07/08/19 021 Inactive Blood Glucose Test strips RxNorm: Use 1 Test Strip QID at PRN 07/08/19 21 Inactive E11.42 Novolog Flexpen U-100 Insulin aspart 100 unit/mL (3 mL) subcutaneous RxNorm: 5088961 Administer per sliding scale Milliliter(s) Subcutaneous TID 151-200: 10 u; 201-250: 20 u; 251-300: 30 u; 301-350: 40 u; 351-400: 50 u. 07/08/19 21 022 Inactive lisinopril 5 mg tablet RxNorm: 223733 Take 1 Tablet(s) Oral QD 07/08/19 021 Inactive Novolog Flexpen U-100 Insulin aspart 100 unit/mL (3 mL) subcutaneous RxNorm: 7572644 Inject 85 Unit(s) Subcutaneous TID 07/08/19 022 Inactive pravastatin 80 mg tablet RxNorm: 582422 Take 1 Tablet(s) Oral QHS every night at bedtime 07/08/19 023 Inactive clotrimazole 1 % topical cream RxNorm: 550726 Apply to bilateral groin areas Topical BID 07/08/19 022 Inactive metoprolol succinate ER 200 mg tablet,extended release 24 hr RxNorm: 089838 Take 1 Tablet(s) Oral QD 07/08/19 021 Inactive Vitamin D3 25 mcg (1,000 unit) tablet RxNorm: 450770 Take 1 Tablet(s) Oral QD 07/08/19 021 Inactive isosorbide dinitrate 30 mg tablet RxNorm: 503002 Take 1 Tablet(s) Oral QD 07/08/19 021 Inactive Levemir FlexTouch U-100 Insulin 100 unit/mL (3 mL) subcutaneous pen RxNorm: 612114 Inject 140 Unit(s) Subcutaneous BID 07/08/19 021 Inactive torsemide 20 mg tablet RxNorm: 040291 Take 1 Tablet(s) Oral QD 07/08/19 023 Inactive venlafaxine 75 mg tablet RxNorm: 418355 Take 1 Tablet(s) Oral QD 07/08/19 021 Inactive acetaminophen 500 mg tablet RxNorm: 002759 Take 1 Tablet(s) Oral TID as needed for headache 06/18/19 21 021 Inactive acetaminophen 500 mg tablet RxNorm: 313932 Take 1 Tablet(s) Oral TID as needed for headache 06/18/19 21 021 Inactive Lyrica 100 mg capsule RxNorm: 299681 Take 1 Capsule(s) Oral QHS every night at bedtime 06/11/19 21 021 Inactive Lyrica 50 mg capsule RxNorm: 555830 Take 1 Capsule(s) Oral QAM every morning 06/10/19 21 021 Inactive hydrocortisone 2.5 % topical cream RxNorm: 322940 Apply to bilateral groin creases Topical BID 05/15/20 20 021 Inactive clotrimazole 1 % topical cream RxNorm: 358362 Apply to bilateral groin areas Topical BID 05/15/20 20 021 Inactive Lyrica 50 mg capsule RxNorm: 434131 Take 1 Capsule(s) Oral QAM every morning 05/14/20 20 020 Inactive Lyrica 100 mg capsule RxNorm: 223963 Take 1 Capsule(s) Oral QHS every night [...] Inactive Nystop 100,000 unit/gram topical powder RxNorm: 520198 Apply to abd folds, under breasts and L side of groin Topical BID x 14 days, then BID PRN 04/08/20 20 020 Inactive dx: yeast dermatitis Lyrica 100 mg capsule RxNorm: 678289 Take 1 Capsule(s) Oral QHS every night at bedtime 03/13/20 20 Inactive Lyrica 50 mg capsule RxNorm: 707078 Take 1 Capsule(s) Oral QAM every morning 03/13/20 20 Inactive ketoconazole 2 % shampoo RxNorm: 702310 Apply Topical two times a week with showers 03/11/20 20 Inactive cholecalciferol (vitamin D3) 50 mcg (2,000 unit) tablet RxNorm: 257956 Take 1 Tablet(s) Oral QD 03/11/20 20 Inactive Zetia 10 mg tablet RxNorm: 522101 Take 1 Tablet(s) Oral QD 03/07/20 20 021 Inactive Zetia 10 mg tablet RxNorm: 670307 Take 1 Tablet(s) Oral QD 03/07/20 20 Inactive Lyrica 50 mg capsule RxNorm: 912654 Take 1 Capsule(s) Oral QAM every morning 02/15/20 20 Inactive Lyrica 100 mg capsule RxNorm: 199857 Take 1 Capsule(s) Oral QHS every night at bedtime 02/15/20 20 Inactive Lyrica 100 mg capsule RxNorm: 592780 Take 1 Capsule(s) Oral QHS every night at bedtime 02/15/20 20 Inactive Lyrica 50 mg capsule RxNorm: 202315 Take 1 Capsule(s) Oral QAM every morning 02/15/20 20 Inactive metoprolol succinate ER 200 mg tablet,extended release 24 hr RxNorm: 842221 Take 1 Tablet(s) Oral QD 08/12/19 23 Active loperamide 2 mg capsule RxNorm: 358650 Take 1 Capsule(s) Oral QID as needed 06/12/19 22 Active hydralazine 50 mg tablet RxNorm: 633198 Take 1 Tablet(s) Oral QID 08/12/19 23 Active Soft Touch Lancets RxNorm: miscellaneous 03/04/20 24 Active venlafaxine ER 75 mg capsule,extended release 24 hr RxNorm: 387809 Take 3 Capsule(s) Oral QD 06/12/19 22 023 Inactive polyethylene glycol 3350 17 gram/dose oral powder RxNorm: 418759 Take 17=1 capful Gram(s) Oral BID as needed mix with 4-8oz of liquid 06/12/19 22 024 Inactive icosapent ethyl 1 gram capsule RxNorm: 2952963 Take 2 Capsule(s) (2 gm) Oral BID with meals 10/07/19 23 023 Inactive Okay to dispense one 2gm tab if you have that available. Levemir FlexTouch U-100 Insulin 100 unit/mL (3 mL) subcutaneous pen RxNorm: 570390 Inject 80 Unit(s) Subcutaneous BID 07/14/19 23 023 Inactive Novolog Flexpen U-100 Insulin aspart 100 unit/mL (3 mL) subcutaneous RxNorm: 7623158 Insert 30 Unit(s) Subcutaneous TID with meals [...] Codes Status Date Referral: [facility] [place] WPtel: [phone] [id number] [place] Referral Records Received 09/21/2022 Referral: [facility] WPtel: [address] [id number] [place] Referral Completed 05/28/2021 Referral: General Cardiology Referral Complet ed 01/03/2021 Referral: General Psychologist Referral Close d Referral: General Psychiatrist Referral Patient/Family Scheduling Appointment Referral: General Physical Medicine Referral Facility Scheduling Appointment Instructions Comment Date Leonid is a Male being seen living at [facility]. Initial BPS visit 01/2020. PMHx including DMII, CAD w/ 5 stents, Depression, Seizure Disorder and CKD stage 3. He moved into [facility] in 12/2019 but after a hospitalization 05/2021 he moved to the [facility] to have closer nursing attention. Sister Jyotsna involved in his care cell# [phone] Guardian: Giulia (tapan met in person 09/01/21), [...] note from 11.08.2023 at [facility] (follow up 6 months)Colon & Rectal Surgery visit scheduled for 03/08/24 with Matilde Pérez PA-C. 02/08/2024
--- OUTSIDE RECORDS SUMMARY | 2024-03-09 01:43 | XMS_ITS | CCD ---
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, Harrison Chronic Care Management U navailable Summary Purpose DataExchange Insurance Providers Payer name Policy type / Coverage type Covered libertarian ID Effective Begin Date Effective End Date [place] Medicare Part B [id number] Unknown Unknown Medicaid [place] Medicare Part B [id number] Unknown Unknown Family history Sister Brittany Suggs Diagnosis Age At Onset No Family Disease Entered N/A Runs in the family Diagnosis Age At Onset No Known Diseases N/A Sister Blanka Mcduffie Diagnosis Age At Onset No Family Disease Entered N/A Social History Social History Element Codes Description Effec tive Dates Tobacco history SNOMED CT: 320010374 Never smoker 01/16 Sexually Active? 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 Other [facility] (current[facility] dr ug therapy ICD-10: [...] 09/07/2023 Resolved Coronary artery disease invo lving [place] coronary artery of [place] heart, angina presence unspecified ICD-10: I25.10 ICD-9: [...] Insulin 100 unit/mL (3 mL) subcutaneous RxNorm: 4785781 Inject 40 Unit(s) Subcutaneous BID 03/07/20 025 Active Please dispense one month supply. Humulin R U-500 (Concentrated) Insulin 500 unit/mL subcutaneous soln RxNorm: 390150 Inject 100 Unit(s) Subcutaneous AC before meals [...] PRN) to be use with new Accu [place] meter 03/04/20 Inactive ok to substitute with any covered alternative test strip nystatin 100,000 unit/gram topical powder RxNorm: 842075 Apply 1 Application Topical BID as needed [...] (Concentrated) Insulin 500 unit/mL subcutaneous soln RxNorm: 920714 Inject 100 Unit(s) Subcutaneous TID 02/17/20 24 024 Inactive Humulin R U-500 (Concentrated) Insulin 500 unit/mL subcutaneous soln RxNorm: 014592 Inject 100 Unit(s) Subcutaneous TID 02/10/20 24 024 Inactive Basaglar ValorieikPen U-100 Insulin 100 unit/mL (3 mL) subcutaneous RxNorm: 3217740 Inject 30 Unit(s) Subcutaneous BID 02/10/20 24 024 Inactive Please dispense one month supply. pregabalin 100 mg capsule RxNorm: 051480 Take 1 Capsule(s) Oral QAM every morning 02/07/20 24 024 Active isosorbide mononitrate ER 60 mg tablet,extended release 24 hr RxNorm: 912137 Take 1 Tablet(s) Oral QD 02/01/20 24 025 Active aripiprazole 15 mg tablet RxNorm: 325606 Take 1/2 Tablet(s) Oral QD 02/01/20 24 025 Active torsemide 20 mg tablet RxNorm: 185355 1 TAB ORALLY DAILY (DX: EDEMA) 01/27/20 No Stop Date Active potassium chloride ER 20 mEq tablet,extended release(part/cryst) RxNorm: 9732332 2 TABS (40MEQ) ORALLY TWICE DAILY (DX: HYPOKALEMIA) 01/27/20 24 No Stop Date Active cephalexin 500 mg capsule RxNorm: 611607 Take 1 Capsule(s) Oral QID 12/17/19 24 024 Inactive cephalexin 500 mg capsule RxNorm: 040651 Take 1 Capsule(s) Oral QID 12/17/19 24 024 Inactive acetaminophen 500 mg tablet RxNorm: 919128 (MAX APAP:4GM/24HR) Take 1 Tablet(s) Oral TID as needed for pain 12/10/19 24 024 Active torsemide 20 mg tablet RxNorm: 088900 Take 1 Tablet(s) Oral QD 10/26/19 24 024 Inactive potassium chloride ER 20 mEq tablet,extended release RxNorm: 908103 Take 2 Tablet(s) Oral BID 10/26/19 24 Active torsemide 20 mg tablet RxNorm: 341491 Take 1 Tablet(s) Oral QD 10/26/19 24 Inactive potassium chloride ER 20 mEq tablet,extended release RxNorm: 251177 Take 2 Tablet(s) Oral BID 10/26/19 24 Inactive Artificial Tears (PF) 0.1 %-0.3 % drops in a dropperette RxNorm: 154668 Apply 1-2 Drop(s) Both eyes BID as needed 09/28/19 24 Active erythromycin 5 mg/gram (0.5 %) eye ointment RxNorm: 809204 Apply 1 Application Both eyes QHS every night at bedtime Instill ~1 cm ribbon into affected eye 09/28/19 24 024 Inactive Artificial Tears (PF) 0.1 %-0.3 % drops in a dropperette RxNorm: 261371 Apply 1-2 Drop(s) Both eyes BID as needed 09/28/19 24 Inactive erythromycin 5 mg/gram (0.5 %) eye ointment RxNorm: 711892 Apply 1 Application Both eyes QHS every night at bedtime Instill ~1 cm ribbon into affected eye 09/28/19 24 024 Inactive acetaminophen 500 mg tablet RxNorm: 688887 (MAX APAP:4GM/24HR) Take 1 Tablet(s) Oral TID as needed for pain 09/24/19 24 024 Inactive carvedilol 25 mg tablet RxNorm: 854488 Take 1 Tablet(s) Oral QD 09/08/19 24 No Stop Date Active pregabalin 100 mg capsule RxNorm: 452172 Take 1 Capsule(s) Oral QAM every morning 09/07/19 24 024 Inactive rosuvastatin 40 mg tablet RxNorm: 642065 Take 1 Tablet(s) Oral QPM every evening 07/13/19 24 No Stop Date Active ezetimibe 10 mg tablet RxNorm: 586119 Take 1 Tablet(s) Oral QD 07/13/19 24 No Stop Date Active bisacodyl 10 mg rectal suppository RxNorm: 376262 Insert 1 Suppository Rectal QD as needed 07/13/19 24 No Stop Date Active polyethylene glycol 3350 17 gram/dose oral powder RxNorm: 952186 Take 17 Gram(s) Oral BID as needed mix in 4-8ox water 07/13/19 24 No Stop Date Active ketoconazole 2 % shampoo RxNorm: 241720 Apply 1 Application Topical UD as directed 07/13/19 24 No Stop Date Active Ozempic 1 mg/dose (4 mg/3 mL) subcutaneous pen injector RxNorm: 1024103 Inject 1 Milligram(s) Subcutaneous QW once a week 07/13/19 24 No Stop Date Active Guaifenesin AC 10 mg-100 mg/5 mL oral liquid RxNorm: 601303 Take 10 Milliliter(s) Oral Q4H every four hours as needed 07/13/19 24 No Stop Date Active ammonium lactate 12 % topical cream RxNorm: 816469 Apply 1 Application Topical BID 07/13/19 24 No Stop Date Active hydrocortisone 2.5 % topical cream RxNorm: 911757 Apply 1 Application Topical BID as needed 07/13/19 24 No Stop Date Active rosuvastatin 20 mg sprinkle capsule RxNorm: 5175103 Take 1 Capsule(s) Oral QD 07/13/19 24 No Stop Date Active Vascepa 1 gram capsule RxNorm: 8260688 Take 2 Capsule(s) Oral BID 07/13/19 24 No Stop Date Active venlafaxine ER 75 mg capsule,extended release 24 hr RxNorm: 563811 Take 3 Capsule(s) Oral QD 07/13/19 24 No Stop Date Active aripiprazole 15 mg tablet RxNorm: 523494 Take 1/2 Tablet(s) Oral QD 07/13/19 24 024 Inactive isosorbide mononitrate ER 60 mg tablet,extended release 24 hr RxNorm: 192895 Take 1 Tablet(s) Oral QD 07/13/19 24 024 Inactive Basaglar KwikPen U-100 Insulin 100 unit/mL (3 mL) subcutaneous RxNorm: 8154677 Inject 30U SubQ twice daily 07/07/19 24 024 Inactive Please dispense one month supply. Basaglar KwikPen U-100 Insulin 100 unit/mL (3 mL) subcutaneous RxNorm: 5278260 Inject 30U SubQ twice daily 07/07/19 24 024 Inactive Please dispense one month supply. pregabalin 150 mg capsule RxNorm: 781927 Take 1 Capsule(s) Oral QHS every night at bedtime 07/05/19 24 024 Inactive pregabalin 150 mg capsule RxNorm: 240681 Take 1 Capsule(s) Oral QHS every night at bedtime 07/05/19 24 024 Inactive polyethylene glycol 3350 17 gram/dose oral powder RxNorm: 460721 Take 1 Packet Oral QD as needed (1 packet = 17g) mix with 4-8oz of liquid 06/15/19 24 024 Inactive bisacodyl 10 mg rectal suppository RxNorm: 739129 Insert one suppository per rectum once daily as needed for constipation 06/15/19 24 024 Inactive bisacodyl 10 mg rectal suppository RxNorm: 167148 Insert one suppository per rectum once daily as needed for constipation 06/15/19 24 024 Inactive pregabalin 100 mg capsule RxNorm: 146092 Take 1 Capsule(s) Oral QAM every morning 04/27/20 23 024 Inactive Levemir FlexPen 100 unit/mL (3 mL) solution subcutaneous insulin pen RxNorm: 825876 Inject 30 Unit(s) Subcutaneous BID 04/27/20 23 024 Inactive rosuvastatin 40 mg tablet RxNorm: 590546 Take 1 Tablet(s) Oral QPM every evening 04/16/20 024 Inactive D/C rosuvastatin 20mg venlafaxine ER 75 mg capsule,extended release 24 hr RxNorm: 889642 Take 3 Capsule(s) Oral QD 04/14/20 23 023 Inactive pregabalin 100 mg capsule RxNorm: 311469 Take 1 Capsule(s) Oral QAM every morning [...] strip clotrimazole 1 % topical cream RxNorm: 081941 Take apply topically to abdominal folds twice daily for 14 days 03/12/20 23 024 Inactive Ozempic 1 mg/dose (4 mg/3 mL) subcutaneous pen injector RxNorm: 1852550 Inject 1 Milligram(s) Subcutaneous QW once a week 03/11/20 023 Inactive rosuvastatin 20 mg tablet RxNorm: 213625 Take 1 Tablet(s) Oral QD 02/26/20 023 Inactive d/c pravastatin 80mg Ozempic 1 mg/dose (4 mg/3 mL) subcutaneous pen injector RxNorm: 2405859 Inject 1 Milligram(s) Subcutaneous QW once a week 02/20/20 23 023 Inactive pregabalin 150 mg capsule RxNorm: 954043 Take 1 Capsule(s) Oral HS at bed time 02/19/20 23 023 Inactive pregabalin 100 mg capsule RxNorm: 543022 Take 1 Capsule(s) Oral QAM every morning 02/18/20 23 023 Inactive venlafaxine ER 75 mg capsule,extended release 24 hr RxNorm: 925222 Take 3 Capsule(s) Oral QD 02/04/20 023 Inactive FreeStyle Chema 2 Sensor kit RxNorm: use as directed 02/04/20 23 023 Inactive FreeStyle Chema 2 Sensor kit RxNorm: use as directed 02/04/20 23 024 Inactive fluconazole 150 mg tablet RxNorm: 746229 Take 1 Tablet(s) Oral on day 3 and on day 6 02/03/20 23 024 Inactive chlorthalidone 25 mg tablet RxNorm: 925830 Take 1 Tablet(s) Oral QAM every morning 02/03/20 23 No Stop Date Active venlafaxine ER 150 mg capsule,extended release 24 hr RxNorm: 347484 Take 1 Capsule(s) Oral QD 02/03/20 023 Inactive acetaminophen 500 mg tablet RxNorm: 754526 1 TABLET ORALLY 3 TIMES DAILY (MAX APAP:4GM/24HR) 12/15/19 023 Inactive clotrimazole 1 % topical cream RxNorm: 686259 apply 1g topically to top of feet and in between toes BID 12/09/19 23 023 Inactive potassium chloride ER 20 mEq tablet,extended release RxNorm: 992503 Take 1 Tablet(s) Oral BID 12/09/19 024 Inactive d/c 20mEq once daily (sent from hospital) nystatin 100,000 unit/gram topical powder RxNorm: 759288 APPLY TO AFFECTED AREAS TOPICALLY 2 TIMES DAILY 11/21/19 023 Inactive Nystop 100,000 unit/gram topical powder RxNorm: 837662 Apply to abd folds, under breasts and L side of groin Topical BID x 14 days, then BID PRN 11/20/19 023 Inactive dx: yeast dermatitis [place] Ultra Strength 4 %-30 %-10 % topical cream RxNorm: 756578 Apply 1 Gram(s) Topical QID PRN to feet and legs for neuropathic pain 11/11/19 024 Inactive clotrimazole 1 % topical cream RxNorm: 629688 Apply 1/2 Gram(s) Topical BID Apply to affected areas of groin, periarea, and abdominal topically 2 times daily 11/10/19 023 Inactive hydrocortisone 2.5 % topical cream RxNorm: 861971 Apply 1/2 Gram(s) Topical BID as needed 11/10/19 024 Inactive Levemir FlexPen 100 unit/mL (3 mL) solution subcutaneous insulin pen RxNorm: 046421 Inject 30 Unit(s) Subcutaneous BID 10/07/19 23 023 Inactive Humulin R U-500 (Concentrated) Insulin 500 unit/mL subcutaneous soln RxNorm: 703907 Inject 100 Unit(s) Subcutaneous TID 10/07/19 23 024 Inactive Ozempic 0.25 mg or 0.5 mg (2 mg/3 mL) subcutaneous pen injector RxNorm: 6848851 Inject 1/2 Milligram(s) Subcutaneous QW once a week 10/07/19 024 Inactive aripiprazole 15 mg tablet RxNorm: 002163 1/2 TAB (7.5MG) ORALLY DAILY (DX:MAJOR DEPRESSIVE DISORDER) 09/23/19 23 023 Inactive Accu-Chek Guide test strips RxNorm: Use 1 Test Strip QID 09/15/19 023 Inactive ok to substitute with any covered alternative test strip Lancets,Thin 28 gauge RxNorm: Use 1 as directed QID 09/15/19 23 023 Inactive torsemide 20 mg tablet RxNorm: 478192 Take 1 Tablet(s) Oral BID 09/09/19 23 024 Inactive d/c once daily dosing carvedilol 25 mg tablet RxNorm: 315693 Take 1 Tablet(s) Oral QD 08/25/19 23 024 Inactive pregabalin 150 mg capsule RxNorm: 743273 1 Capsule(s) Oral HS at bed time 08/18/19 23 023 Inactive pregabalin 100 mg capsule RxNorm: 109318 1 Capsule(s) Oral QAM every morning 08/18/19 23 023 Inactive carvedilol 25 mg tablet RxNorm: 553800 1 Tablet(s) Oral QD 07/28/19 23 023 Inactive lisinopril 20 mg tablet RxNorm: 018006 Give 1 Tablet(s) Oral QD 07/28/19 23 023 Inactive Lyrica 150 mg capsule RxNorm: 074291 Take 1 Capsule(s) Oral QHS every night at bedtime 07/19/19 23 023 Inactive d/c 100mg dose Diflucan 150 mg tablet RxNorm: 439125 Take 1 Tablet(s) Oral QD repeat on day 3 and 6 07/19/19 23 023 Inactive pregabalin 100 mg capsule RxNorm: 767443 Take 1 Capsule(s) Oral QAM every morning 07/19/19 23 023 Inactive gatifloxacin 0.5 % eye drops RxNorm: 925353 Instill 1 Drop(s) as directed TID Instill 1 drop in to affected eye(s) starting 1 day prior to surgery and continue until gone (do not exceed 4 weeks). 07/13/19 23 023 Inactive carvedilol 25 mg tablet RxNorm: 024083 2 Tablet(s) Oral BID 07/13/19 023 Inactive Humulin R Regular U-100 Insulin 100 unit/mL injection solution RxNorm: 668882 85 Unit(s) Injection TID 07/13/19 023 Inactive ketorolac 0.5 % eye drops RxNorm: 295598 Instill 1 Drop(s) as directed QID Instill 1 drop into affected eye(s) 4 times daily starting 1 day prior to surgery and continue until gone (do not exceed 4 weeks). 07/13/19 023 Inactive Diflucan 150 mg tablet RxNorm: 503959 Take 1 Tablet(s) Oral QD repeat on day 3 and 6 06/30/19 023 Inactive Accu-Chek Guide test strips RxNorm: Use 1 Test Strip QID Use 1 test strip to monitor blood glucose 4 times daily and as needed. Dx:E11.42. 06/23/19 023 Inactive ok to substitute with any covered alternative test strip dextromethorphan-gu aifenesin 10 mg-100 mg/5 mL oral liquid RxNorm: 035128 Take 10 Milliliter(s) Oral every 4 hours as needed for cough 06/19/19 023 Inactive dextromethorphan-gu aifenesin 10 mg-100 mg/5 mL oral liquid RxNorm: 820573 Take 10 Milliliter(s) Oral every 4 hours as needed for cough 06/19/19 23 023 Inactive Lyrica 150 mg capsule RxNorm: 024688 Take 1 Capsule(s) Oral QHS every night at bedtime 06/18/19 23 023 Inactive d/c 100mg dose aripiprazole 15 mg tablet RxNorm: 171757 1/2 TAB (7.5MG) ORALLY DAILY (DX:MAJOR DEPRESSIVE DISORDER) 06/05/19 23 023 Inactive pregabalin 100 mg capsule RxNorm: 295582 1 Capsule(s) Oral QAM every morning 06/02/19 023 Inactive Banophen 50 mg capsule RxNorm: 8509380 Take 1 Capsule(s) Oral Q6H every 6 hours as needed 05/19/19 No Stop Date Active Novolog Flexpen U-100 Insulin aspart 100 unit/mL (3 mL) subcutaneous RxNorm: 9903353 Inject 10 Unit(s) Subcutaneous QHS every night at bedtime with nighttime snack 04/08/20 022 Inactive Novolog Flexpen U-100 Insulin aspart 100 unit/mL (3 mL) subcutaneous RxNorm: 8373646 Inject 42 Unit(s) Subcutaneous TID in addition to sliding scale 04/08/20 022 Inactive d/c 36u albuterol sulfate HFA 90 mcg/actuation aerosol inhaler RxNorm: 4054454 Take 2 Puff(s) Inhalation Q4H every four hours as needed as needed for SOB, cough, or wheezing 04/07/20 030 Active Banophen 50 mg capsule RxNorm: 5570305 Take 1 Capsule(s) Oral Q6H every 6 hours as needed 04/06/20 023 Inactive diphenhydramine 50 mg tablet RxNorm: 0468944 Take 1 Tablet(s) Oral Q6H every 6 hours as needed 04/06/20 022 Inactive diphenhydramine 50 mg tablet RxNorm: 9605337 1 Tablet(s) Oral Q6H every 6 hours as needed 04/06/20 022 Inactive Abilify 15 mg tablet RxNorm: 337347 1/2 Tablet(s) Oral QD 03/10/20 22 023 Inactive Shingrix (PF) 50 mcg/0.5 mL intramuscular suspension, kit RxNorm: 9417816 Administer 1/2 Milliliter(s) Intramuscular QD one time shingrix step 2 ( step 1 given 11/04/21) WITH needle - Nursing please administer upon arrival and once administered 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, 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, 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, and lot# so we can update [facility] 02/18/20 22 Inactive dispense with needle Shingrix (PF) 50 mcg/0.5 mL intramuscular suspension, kit RxNorm: 1264157 Administer 1/2 Milliliter(s) Intramuscular QD one time shingrix step 2 ( step 1 given 11/04/21) WITH needle - Nursing please administer upon arrival and once administered post 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, 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, 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, and lot# so we can update [facility] 02/18/20 22 022 Inactive dispense with needle polyethylene glycol 3350 17 gram/dose oral powder RxNorm: 924346 Take 17=1 capful Gram(s) Oral QD mix with 4-8oz of liquid 01/08/20 22 023 Inactive take this in addition to BID prn order Lyrica 100 mg capsule RxNorm: 312772 Take 1 Capsule(s) Oral QAM every morning 01/08/20 22 022 Inactive d/c 50mg dose acetaminophen 500 mg tablet RxNorm: 875737 Take 1 Tablet(s) Oral TID 01/08/20 22 022 Inactive d/c PRN order Lyrica 150 mg capsule RxNorm: 719324 Take 1 Capsule(s) Oral QHS every night at bedtime 01/08/20 22 023 Inactive d/c 100mg dose Abilify 5 mg tablet RxNorm: 027815 Take 1 Tablet(s) Oral QD take 1 tab po QD #30 refill 5 dx: MDD 12/12/19 22 022 Inactive Abilify 5 mg tablet RxNorm: 869655 Take 1 Tablet(s) Oral QD take 1 tab po QD #30 refill 5 dx: MDD 12/12/19 22 022 Inactive Novolog Flexpen U-100 Insulin aspart 100 unit/mL (3 mL) subcutaneous RxNorm: 3821446 Inject 42 Unit(s) Subcutaneous TID in addition to sliding scale 12/10/19 22 022 Inactive d/c 36u chlorthalidone 25 mg tablet RxNorm: 200843 Take 1 Tablet(s) Oral QAM every morning 12/10/19 22 023 Inactive pregabalin 50 mg capsule RxNorm: 572570 Take 1 Capsule(s) Oral QAM every morning 11/12/19 22 022 Inactive tetanus-diphtheria toxoids-Td 2 Lf unit-2 Lf unit/0.5 mL IM suspension RxNorm: 139 Take 0.5 Miscellaneous Intramuscular 11/12/19 22 022 Inactive need tdap - nursing to administer upon arrival pregabalin 50 mg capsule RxNorm: 886054 Take 1 Capsule(s) Oral QAM every morning 10/16/19 22 022 Inactive pregabalin 50 mg capsule RxNorm: 617638 Take 1 Capsule(s) Oral QAM every morning 10/16/19 22 022 Inactive pregabalin 50 mg capsule RxNorm: 688875 1 Capsule(s) Oral QAM every morning 10/15/19 22 022 Inactive Shingrix (PF) 50 mcg/0.5 mL intramuscular suspension, kit RxNorm: 3322269 Administer 1/2 Milliliter(s) Intramuscular one time Nursing please administer upon arrival and once administered post 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 10/09/19 22 022 Inactive shingrix step 1 cholecalciferol (vitamin D3) 1,250 mcg (50,000 unit) capsule RxNorm: 753792 Take 1 Capsule(s) Oral QW once a [...] aspart 100 unit/mL (3 mL) subcutaneous RxNorm: 1960827 Inject 10 Unit(s) Subcutaneous QHS every night at bedtime with nighttime snack 10/08/19 22 Inactive Shingrix (PF) 50 mcg/0.5 mL intramuscular suspension, kit RxNorm: 4596169 ADMINISTER 2-DOSE SERIES PER CDC GUIDELINES 10/08/19 22 Active Shingrix (PF) 50 mcg/0.5 mL intramuscular suspension, kit RxNorm: 9606815 ADMINISTER 2-DOSE SERIES PER CDC GUIDELINES 10/08/19 22 Inactive Novolog Flexpen U-100 Insulin aspart 100 unit/mL (3 mL) subcutaneous RxNorm: 8342301 Inject 36 Unit(s) Subcutaneous TID in addition to sliding scale 10/08/19 22 Inactive Novofine Autocover 30 gauge x 1/3 needle RxNorm: Use 1 Miscellaneous UD as directed Use 1 needle as directed to administer insulin 5 times a day Dx:E11.42. 10/03/19 Inactive ok to substitute with any covered alternative pen needle benzoyl peroxide 10 % topical cleanser RxNorm: 107595 Apply 1 Application Topical QD apply to face, wash rinse and dry once daily (may change to QOD if drying) 08/19/19 22 022 Inactive (%covered by insurance) #60ml refill 11 dx: acne benzoyl peroxide 10 % topical cleanser RxNorm: 317167 Apply 1 Application Topical QD apply to face, wash rinse and dry once daily (may change to QOD if drying) 08/19/19 22 022 Inactive (%covered by insurance) #60ml refill 11 dx: acne benzoyl peroxide 10 % topical cleanser RxNorm: 790081 Apply 1 Application Topical QD apply to face, wash rinse and dry once daily (may change to QOD if drying) 08/19/19 22 022 Inactive (%covered by insurance) #60ml refill 11 dx: acne Lyrica 50 mg capsule RxNorm: 535561 Take 1 Capsule(s) Oral QAM every morning Take 1 capsule by mouth once daily 08/19/19 22 022 Inactive benzoyl peroxide 10 % topical cleanser RxNorm: 210233 Apply 1 Application Topical QD apply to face, wash rinse and dry once daily (may change to QOD if drying) 08/19/19 22 022 Inactive (%covered by insurance) #60ml refill 11 dx: acne Lyrica 100 mg capsule RxNorm: 121646 Take 1 Capsule(s) Oral QHS every night at bedtime Take 1 capsule by mouth once daily at bedtime 08/19/19 022 Inactive Lyrica 100 mg capsule RxNorm: 185390 Take 1 Capsule(s) Oral QHS every night at bedtime Take 1 capsule by mouth once daily at bedtime 08/16/19 22 022 Inactive Lyrica 50 mg capsule RxNorm: 483092 Take 1 Capsule(s) Oral QAM every morning Take 1 capsule by mouth once daily 08/16/19 22 022 Inactive Levemir FlexTouch U-100 Insulin 100 unit/mL (3 mL) subcutaneous pen RxNorm: 913744 Inject 86 Unit(s) Subcutaneous BID 08/05/19 22 022 Inactive d/c 83units BID Lyrica 100 mg capsule RxNorm: 052600 Take 1 Capsule(s) Oral QHS every night at bedtime Take 1 capsule by mouth once daily at bedtime 07/14/19 22 022 Inactive Lyrica 50 mg capsule RxNorm: 991746 Take 1 Capsule(s) Oral QAM every morning Take 1 capsule by mouth once daily 07/14/19 22 022 Inactive Levemir FlexTouch U-100 Insulin 100 unit/mL (3 mL) subcutaneous pen RxNorm: 370388 Inject 83 Unit(s) Subcutaneous BID 07/08/19 22 [...] test strip hydralazine 50 mg tablet RxNorm: 851316 Take 1 Tablet(s) Oral QID 05/05/20 21 022 Inactive venlafaxine ER 225 mg tablet,extended release 24 hr RxNorm: 020875 Take 1 Tablet(s) Oral QD 05/05/20 21 021 Inactive venlafaxine ER 225 mg tablet,extended release 24 hr RxNorm: 852180 Take 1 Tablet(s) Oral QD 05/05/20 21 022 Inactive isosorbide mononitrate ER 30 mg tablet,extended release 24 hr RxNorm: 511808 Take 1 Tablet(s) Oral QD 05/05/20 21 024 Inactive hydralazine 50 mg tablet RxNorm: 628302 Take 1 Tablet(s) Oral QID 05/05/20 21 021 Inactive aspirin 81 mg tablet,delayed release RxNorm: 085615 Take 1 Tablet(s) Oral QD 03/31/20 022 Inactive Vitamin D2 1,250 mcg (50,000 unit) capsule RxNorm: 9007222 Take 1 Capsule(s) Oral QW once a week x 12 weeks 03/31/20 022 Inactive Vitamin D2 1,250 mcg (50,000 unit) capsule RxNorm: 6236563 Take 1 Capsule(s) Oral QW once a week 03/31/20 021 Inactive Zetia 10 mg tablet RxNorm: 221689 Take 1 Tablet(s) Oral QD 03/31/20 024 Inactive Zetia 10 mg tablet RxNorm: 131073 Take 1 Tablet(s) Oral QD 03/31/20 021 Inactive hydralazine 25 mg tablet RxNorm: 491043 Take 1 Tablet(s) Oral QID 03/31/20 21 021 Inactive hydralazine 25 mg tablet RxNorm: 284500 Take 1 Tablet(s) Oral QID 03/31/20 021 Inactive hydralazine 10 mg tablet RxNorm: 281124 Take 1 Tablet(s) Oral QID 03/03/20 021 Inactive cephalexin 500 mg tablet RxNorm: 104725 Take 1 Tablet(s) Oral QID 02/27/20 021 Inactive cephalexin 500 mg tablet RxNorm: 269902 Take 1 Tablet(s) Oral QID 02/27/20 21 021 Inactive lisinopril 40 mg tablet RxNorm: 438342 Take 1 Tablet(s) Oral QD 02/11/20 21 023 Inactive Eliquis 5 mg tablet RxNorm: 0969637 Take 1 Tablet(s) Oral BID 01/05/20 21 022 Inactive Eliquis 5 mg tablet RxNorm: 1853503 Take 2 Tablet(s) Oral QD 01/01/20 21 021 Inactive Lyrica 50 mg capsule RxNorm: 097969 Take 1 Capsule(s) Oral QAM every morning 12/24/19 21 021 Inactive Lyrica 100 mg capsule RxNorm: 784472 Take 1 Capsule(s) Oral QHS every night at bedtime 12/24/19 21 021 Inactive clotrimazole 1 % topical cream RxNorm: 262788 Apply to right foot and toes Topical BID 12/04/19 21 023 Inactive metoprolol succinate ER 200 mg tablet,extended release 24 hr RxNorm: 444775 Take 1 Tablet(s) Oral QD 12/04/19 21 023 Inactive ciprofloxacin 500 mg tablet RxNorm: 880981 Take 1 Tablet(s) Oral QD 11/30/19 21 021 Inactive DX ofloxacin otic drops Accu-Chek Guide test strips RxNorm: USE 1 TO CHECK GLUCOSE 4 TIMES DAILY AND NEEDED 11/15/19 21 023 Inactive Blood Glucose Test strips RxNorm: Use 1 Test Strip QID at PRN 11/05/19 21 023 Inactive E11.42 lisinopril 30 mg tablet RxNorm: 238018 Take 1 Tablet(s) Oral QD 10/30/19 021 Inactive lisinopril 20 mg tablet RxNorm: 718289 Take 1 Tablet(s) Oral QD 10/23/19 21 021 Inactive lisinopril 20 mg tablet RxNorm: 501877 Take 1 Tablet(s) Oral QD 10/23/19 21 021 Inactive lisinopril 10 mg tablet RxNorm: 307743 Take 1 Tablet(s) Oral QD 10/02/19 21 021 Inactive icosapent ethyl 1 gram capsule RxNorm: 9766913 Take 2 Capsule(s) (2 gm) Oral BID with meals 09/12/19 21 024 Inactive Okay to dispense one 2gm tab if you have that available. icosapent ethyl 1 gram capsule RxNorm: 5147422 Take 2 Capsule(s) Oral BID 09/12/19 21 021 Inactive Okay to dispense one 2gm tab if you have that available. amlodipine 10 mg tablet RxNorm: 495446 Take 1 Tablet(s) Oral QD 09/04/19 Inactive aspirin 81 mg tablet,delayed release RxNorm: 531336 Take 1 Tablet(s) Oral QD 09/04/19 21 021 Inactive Levemir FlexTouch U-100 Insulin 100 unit/mL (3 mL) subcutaneous pen RxNorm: 074699 Inject 150 Unit(s) Subcutaneous BID 09/04/19 21 022 Inactive venlafaxine ER 150 mg tablet,extended release 24 hr RxNorm: 151072 Take 1 Tablet(s) Oral QD 09/04/19 21 Inactive clotrimazole-betame thasone 1 %-0.05 % topical cream RxNorm: 841904 Apply to rash on red area on left abdomen/chest Topical BID 08/10/19 21 Inactive amlodipine 5 mg tablet RxNorm: 733000 Take 1 Tablet(s) Oral QD 07/31/19 Inactive cephalexin 500 mg tablet RxNorm: 589879 Take 1 Tablet(s) Oral BID BID - Twice Daily 07/31/19 Inactive Start 08/01/20 pantoprazole 40 mg tablet,delayed release RxNorm: 656691 Take 1 Tablet(s) Oral QAM every morning 07/08/19 022 Inactive senna 8.6 mg tablet RxNorm: 618594 Take 1 Tablet(s) Oral QD 07/08/19 022 Inactive carbamazepine 200 mg tablet RxNorm: 690704 Take 1 Tablet(s) Oral BID 07/08/19 022 Inactive clopidogrel 75 mg tablet RxNorm: 937400 Take 1 Tablet(s) Oral QD 07/08/19 021 Inactive Blood Glucose Test strips RxNorm: Use 1 Test Strip QID at PRN 07/08/19 21 Inactive E11.42 Novolog Flexpen U-100 Insulin aspart 100 unit/mL (3 mL) subcutaneous RxNorm: 6104381 Administer per sliding scale Milliliter(s) Subcutaneous TID 151-200: 10 u; 201-250: 20 u; 251-300: 30 u; 301-350: 40 u; 351-400: 50 u. 07/08/19 21 022 Inactive lisinopril 5 mg tablet RxNorm: 295019 Take 1 Tablet(s) Oral QD 07/08/19 021 Inactive Novolog Flexpen U-100 Insulin aspart 100 unit/mL (3 mL) subcutaneous RxNorm: 0445100 Inject 85 Unit(s) Subcutaneous TID 07/08/19 022 Inactive pravastatin 80 mg tablet RxNorm: 103800 Take 1 Tablet(s) Oral QHS every night at bedtime 07/08/19 023 Inactive clotrimazole 1 % topical cream RxNorm: 203111 Apply to bilateral groin areas Topical BID 07/08/19 022 Inactive metoprolol succinate ER 200 mg tablet,extended release 24 hr RxNorm: 269053 Take 1 Tablet(s) Oral QD 07/08/19 021 Inactive Vitamin D3 25 mcg (1,000 unit) tablet RxNorm: 714217 Take 1 Tablet(s) Oral QD 07/08/19 021 Inactive isosorbide dinitrate 30 mg tablet RxNorm: 265984 Take 1 Tablet(s) Oral QD 07/08/19 021 Inactive Levemir FlexTouch U-100 Insulin 100 unit/mL (3 mL) subcutaneous pen RxNorm: 869106 Inject 140 Unit(s) Subcutaneous BID 07/08/19 021 Inactive torsemide 20 mg tablet RxNorm: 492396 Take 1 Tablet(s) Oral QD 07/08/19 023 Inactive venlafaxine 75 mg tablet RxNorm: 145836 Take 1 Tablet(s) Oral QD 07/08/19 021 Inactive acetaminophen 500 mg tablet RxNorm: 293283 Take 1 Tablet(s) Oral TID as needed for headache 06/18/19 21 021 Inactive acetaminophen 500 mg tablet RxNorm: 078299 Take 1 Tablet(s) Oral TID as needed for headache 06/18/19 21 021 Inactive Lyrica 100 mg capsule RxNorm: 578763 Take 1 Capsule(s) Oral QHS every night at bedtime 06/11/19 21 021 Inactive Lyrica 50 mg capsule RxNorm: 695403 Take 1 Capsule(s) Oral QAM every morning 06/10/19 21 021 Inactive hydrocortisone 2.5 % topical cream RxNorm: 981446 Apply to bilateral groin creases Topical BID 05/15/20 20 021 Inactive clotrimazole 1 % topical cream RxNorm: 951842 Apply to bilateral groin areas Topical BID 05/15/20 20 021 Inactive Lyrica 50 mg capsule RxNorm: 171389 Take 1 Capsule(s) Oral QAM every morning 05/14/20 20 020 Inactive Lyrica 100 mg capsule RxNorm: 112227 Take 1 Capsule(s) Oral QHS every night [...] Inactive Nystop 100,000 unit/gram topical powder RxNorm: 589980 Apply to abd folds, under breasts and L side of groin Topical BID x 14 days, then BID PRN 04/08/20 20 020 Inactive dx: yeast dermatitis Lyrica 100 mg capsule RxNorm: 620359 Take 1 Capsule(s) Oral QHS every night at bedtime 03/13/20 20 Inactive Lyrica 50 mg capsule RxNorm: 006115 Take 1 Capsule(s) Oral QAM every morning 03/13/20 20 Inactive ketoconazole 2 % shampoo RxNorm: 436756 Apply Topical two times a week with showers 03/11/20 20 Inactive cholecalciferol (vitamin D3) 50 mcg (2,000 unit) tablet RxNorm: 855498 Take 1 Tablet(s) Oral QD 03/11/20 20 Inactive Zetia 10 mg tablet RxNorm: 545367 Take 1 Tablet(s) Oral QD 03/07/20 20 021 Inactive Zetia 10 mg tablet RxNorm: 077076 Take 1 Tablet(s) Oral QD 03/07/20 20 Inactive Lyrica 50 mg capsule RxNorm: 786380 Take 1 Capsule(s) Oral QAM every morning 02/15/20 20 Inactive Lyrica 100 mg capsule RxNorm: 964783 Take 1 Capsule(s) Oral QHS every night at bedtime 02/15/20 20 Inactive Lyrica 100 mg capsule RxNorm: 304405 Take 1 Capsule(s) Oral QHS every night at bedtime 02/15/20 20 Inactive Lyrica 50 mg capsule RxNorm: 579708 Take 1 Capsule(s) Oral QAM every morning 02/15/20 20 Inactive metoprolol succinate ER 200 mg tablet,extended release 24 hr RxNorm: 859329 Take 1 Tablet(s) Oral QD 08/12/19 23 Active loperamide 2 mg capsule RxNorm: 820213 Take 1 Capsule(s) Oral QID as needed 06/12/19 22 Active hydralazine 50 mg tablet RxNorm: 098144 Take 1 Tablet(s) Oral QID 08/12/19 23 Active Soft Touch Lancets RxNorm: miscellaneous 03/04/20 24 Active venlafaxine ER 75 mg capsule,extended release 24 hr RxNorm: 196392 Take 3 Capsule(s) Oral QD 06/12/19 22 023 Inactive polyethylene glycol 3350 17 gram/dose oral powder RxNorm: 204570 Take 17=1 capful Gram(s) Oral BID as needed mix with 4-8oz of liquid 06/12/19 22 024 Inactive icosapent ethyl 1 gram capsule RxNorm: 3980145 Take 2 Capsule(s) (2 gm) Oral BID with meals 10/07/19 23 023 Inactive Okay to dispense one 2gm tab if you have that available. Levemir FlexTouch U-100 Insulin 100 unit/mL (3 mL) subcutaneous pen RxNorm: 549343 Inject 80 Unit(s) Subcutaneous BID 07/14/19 23 023 Inactive Novolog Flexpen U-100 Insulin aspart 100 unit/mL (3 mL) subcutaneous RxNorm: 1960122 Insert 30 Unit(s) Subcutaneous TID with meals [...] [facility] WPt[facility]: [phone] [id number] [place] Referral Records Received 09/21/2022 Referral: [facility] [place]: [phone] [id number] [place] Referral Completed 05/28/2021 Referral: General Cardiology [...] 05/2021 he moved to the [facility] to have closer nursing attention. Sister Jyotsna involved in his care cell# [phone] Guardian: Giulia (tapan met in person 09/01/21), [...] note from 11.08.2023 at [facility] (follow up 6 months)Colon & Rectal Surgery visit scheduled for 03/08/24 with Matilde Pérez PA-C. 02/08/2024
--- OUTSIDE RECORDS SUMMARY | 2024-03-18 00:55 | XMS_ITS | CCD ---
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 Office Support Specialist Name Role Phone Arpit MCKINLEY-C, [facility] Primary Care Provider Leona vailable [facility] GROUP PROGRAM MANAGER-C, [facility] Chronic Care Management U navailable Summary Purpose DataExchange Insurance Providers Payer name Policy type / Coverage type Covered libertarian ID Effective Begin Date Effective End Date [place] [id number] Unknown Unknown Medicaid [place] Medicare Part B [id number] Unknown Unknown Family history Sister Brittany Suggs Diagnosis Age At Onset No Family Disease Entered N/A Runs in the family Diagnosis Age At Onset No Known Diseases N/A Sister Blanka Mcduffie Diagnosis Age At Onset No Family Disease Entered N/A Social History Social History Element Codes Description Effec tive Dates Tobacco history SNOMED CT: 348812973 Never smoker 01/16 Sexually Active? Unknown No [...] Mcc 09/03/[address]: 170726093 No Alcohol Consum ption 09/02/2020 Allergies, Adverse Reactions, Alerts Substance Reaction Codes Entered Date Inactivated Date Status * NO KNOWN FOOD ALLERGIES Unknown 07/13/2023 No Inactive Date Active LISINOPRIL RxNorm: 18440 02/12/2020 No Inactive Da te Active Metformin [...] D3) 1,250 mcg (50,000 unit) capsule RxNorm: 529627 Take 1 Capsule(s) Oral QW once a week 03/15/20 025 Active Lancets,Thin 28 gauge RxNorm: Use 1 as directed TID lancet 03/08/20 025 Active Pen Needle 30 gauge x 5/16 RxNorm: Pen(s) Use 1 needle as directed TID 03/08/20 025 Active Accu-Chek Guide test strips RxNorm: Use 1 Test Strip TID to test Blood glucose 03/08/20 025 Active ok to substitute with any covered alternative test strip Lancets,Thin 28 gauge RxNorm: Use 1 as directed TID lancet 03/08/20 024 Inactive Accu-Chek Guide Glucose Meter RxNorm: Use 1 Miscellaneous UD as directed Use glucose meter to monitor blood glucose 3 times daily. Dx:E11.42 03/08/20 24 024 Inactive Accu-Chek Guide test strips RxNorm: Use 1 Test Strip TID to test BS 03/08/20 024 Inactive ok to substitute with any covered alternative test strip Basaglar KwikPen U-100 Insulin 100 unit/mL (3 mL) subcutaneous RxNorm: 1299206 Inject 40 Unit(s) Subcutaneous BID 03/07/20 025 Active Please dispense one month supply. Humulin R U-500 (Concentrated) Insulin 500 unit/mL subcutaneous soln RxNorm: 786568 Inject 100 Unit(s) Subcutaneous AC before meals [...] PRN) to be use with new Accu [place] meter 03/04/20 024 Inactive ok to substitute with any covered alternative test strip nystatin 100,000 unit/gram topical powder RxNorm: 412751 Apply 1 Application Topical BID as needed abdominal/breast /groin folds 03/02/20 024 Active FreeStyle Chema 2 Sensor kit RxNorm: Use UD as directed 03/02/20 025 Active FreeStyle Chema 2 Sensor kit RxNorm: Use UD as directed 03/02/20 024 Inactive Pen Needle 30 gauge [...] (Concentrated) Insulin 500 unit/mL subcutaneous soln RxNorm: 740325 Inject 100 Unit(s) Subcutaneous TID 02/17/20 24 024 Inactive Humulin R U-500 (Concentrated) Insulin 500 unit/mL subcutaneous soln RxNorm: 588378 Inject 100 Unit(s) Subcutaneous TID 02/10/20 24 024 Inactive Basaglar KwikPen U-100 Insulin 100 unit/mL (3 mL) subcutaneous RxNorm: 3156188 Inject 30 Unit(s) Subcutaneous BID 02/10/20 024 Inactive Please dispense one month supply. pregabalin 100 mg capsule RxNorm: 677660 Take 1 Capsule(s) Oral QAM every morning 02/07/20 24 024 Active isosorbide mononitrate ER 60 mg tablet,extended release 24 hr RxNorm: 185545 Take 1 Tablet(s) Oral QD 02/01/20 24 025 Active aripiprazole 15 mg tablet RxNorm: 274089 Take 1/2 Tablet(s) Oral QD 02/01/20 24 025 Active torsemide 20 mg tablet RxNorm: 959208 1 TAB ORALLY DAILY (DX: EDEMA) 01/27/20 No Stop Date Active potassium chloride ER 20 mEq tablet,extended release(part/cryst) RxNorm: 9173900 2 TABS (40MEQ) ORALLY TWICE DAILY (DX: HYPOKALEMIA) 01/27/20 No Stop Date Active cephalexin 500 mg capsule RxNorm: 118787 Take 1 Capsule(s) Oral QID 12/17/19 24 024 Inactive cephalexin 500 mg capsule RxNorm: 472997 Take 1 Capsule(s) Oral QID 12/17/19 24 024 Inactive acetaminophen 500 mg tablet RxNorm: 563508 (MAX APAP:4GM/24HR) Take 1 Tablet(s) Oral TID as needed for pain 12/10/19 24 024 Active torsemide 20 mg tablet RxNorm: 367557 Take 1 Tablet(s) Oral QD 10/26/19 24 [...] %-0.3 % drops in a dropperette RxNorm: 320322 Apply 1-2 Drop(s) Both eyes BID as needed 09/28/19 24 Active erythromycin 5 mg/gram (0.5 %) eye ointment RxNorm: 029690 Apply 1 Application Both eyes QHS every night at bedtime Instill ~1 cm ribbon into affected eye 09/28/19 24 Inactive Artificial Tears (PF) 0.1 %-0.3 % drops in a dropperette RxNorm: 438953 Apply 1-2 Drop(s) Both eyes BID as needed 09/28/19 24 Inactive erythromycin 5 mg/gram (0.5 %) eye ointment RxNorm: 352325 Apply 1 Application Both eyes QHS every night at bedtime Instill ~1 cm ribbon into affected eye 09/28/19 24 Inactive acetaminophen 500 mg tablet RxNorm: 792661 (MAX APAP:4GM/24HR) Take 1 Tablet(s) Oral TID as needed for pain 09/24/19 Inactive carvedilol 25 mg tablet RxNorm: 750342 Take 1 Tablet(s) Oral QD 09/08/19 24 No Stop Date Active pregabalin 100 mg capsule RxNorm: 925771 Take 1 Capsule(s) Oral QAM every morning 09/07/19 24 024 Inactive rosuvastatin 40 mg tablet RxNorm: 747607 Take 1 Tablet(s) Oral QPM every evening 07/13/19 24 No Stop Date Active ezetimibe 10 mg tablet RxNorm: 263679 Take 1 Tablet(s) Oral QD 07/13/19 24 No Stop Date Active bisacodyl 10 mg rectal suppository RxNorm: 952386 Insert 1 Suppository Rectal QD as needed 07/13/19 24 No Stop Date Active polyethylene glycol 3350 17 gram/dose oral powder RxNorm: 046479 Take 17 Gram(s) Oral BID as needed mix in 4-8ox water 07/13/19 24 No Stop Date Active ketoconazole 2 % shampoo RxNorm: 756353 Apply 1 Application Topical UD as directed 07/13/19 24 No Stop Date Active Ozempic 1 mg/dose (4 mg/3 mL) subcutaneous pen injector RxNorm: 7026629 Inject 1 Milligram(s) Subcutaneous QW once a week 07/13/19 24 No Stop Date Active Guaifenesin AC 10 mg-100 mg/5 mL oral liquid RxNorm: 726444 Take 10 Milliliter(s) Oral Q4H every four hours as needed 07/13/19 24 No Stop Date Active ammonium lactate 12 % topical cream RxNorm: 514119 Apply 1 Application Topical BID 07/13/19 24 No Stop Date Active hydrocortisone 2.5 % topical cream RxNorm: 298644 Apply 1 Application Topical BID as needed 07/13/19 24 No Stop Date Active rosuvastatin 20 mg sprinkle capsule RxNorm: 1870243 Take 1 Capsule(s) Oral QD 07/13/19 24 No Stop Date Active Vascepa 1 gram capsule RxNorm: 0130739 Take 2 Capsule(s) Oral BID 07/13/19 24 No Stop Date Active venlafaxine ER 75 mg capsule,extended release 24 hr RxNorm: 865742 Take 3 Capsule(s) Oral QD 07/13/19 24 No Stop Date Active aripiprazole 15 mg tablet RxNorm: 305245 Take 1/2 Tablet(s) Oral QD 07/13/19 24 024 Inactive isosorbide mononitrate ER 60 mg tablet,extended release 24 hr RxNorm: 261749 Take 1 Tablet(s) Oral QD 07/13/19 24 024 Inactive Basaglar KwikPen U-100 Insulin 100 unit/mL (3 mL) subcutaneous RxNorm: 0672407 Inject 30U SubQ twice daily 07/07/19 24 024 Inactive Please dispense one month supply. Tusharagldestin MendenhallPen U-100 Insulin 100 unit/mL (3 mL) subcutaneous RxNorm: 9858700 Inject 30U SubQ twice daily 07/07/19 24 024 Inactive Please dispense one month supply. pregabalin 150 mg capsule RxNorm: 693594 Take 1 Capsule(s) Oral QHS every night at bedtime 07/05/19 24 024 Inactive pregabalin 150 mg capsule RxNorm: 393753 Take 1 Capsule(s) Oral QHS every night at bedtime 07/05/19 24 024 Inactive polyethylene glycol 3350 17 gram/dose oral powder RxNorm: 376117 Take 1 Packet Oral QD as needed (1 packet = 17g) mix with 4-8oz of liquid 06/15/19 24 024 Inactive bisacodyl 10 mg rectal suppository RxNorm: 168085 Insert one suppository per rectum once daily as needed for constipation 06/15/19 24 024 Inactive bisacodyl 10 mg rectal suppository RxNorm: 493013 Insert one suppository per rectum once daily as needed for constipation 06/15/19 24 024 Inactive pregabalin 100 mg capsule RxNorm: 873161 Take 1 Capsule(s) Oral QAM every morning 04/27/20 23 024 Inactive Levemir FlexPen 100 unit/mL (3 mL) solution subcutaneous insulin pen RxNorm: 002762 Inject 30 Unit(s) Subcutaneous BID 04/27/20 23 024 Inactive rosuvastatin 40 mg tablet RxNorm: 954242 Take 1 Tablet(s) Oral QPM every evening 04/16/20 23 024 Inactive D/C rosuvastatin 20mg venlafaxine ER 75 mg capsule,extended release 24 hr RxNorm: 643731 Take 3 Capsule(s) Oral QD 04/14/20 23 023 Inactive pregabalin 100 mg capsule RxNorm: 170829 Take 1 Capsule(s) Oral QAM every morning [...] strip clotrimazole 1 % topical cream RxNorm: 158582 Take apply topically to abdominal folds twice daily for 14 days 03/12/20 024 Inactive Ozempic 1 mg/dose (4 mg/3 mL) subcutaneous pen injector RxNorm: 7070289 Inject 1 Milligram(s) Subcutaneous QW once a week 03/11/20 23 023 Inactive rosuvastatin 20 mg tablet RxNorm: 519734 Take 1 Tablet(s) Oral QD 02/26/20 023 Inactive d/c pravastatin 80mg Ozempic 1 mg/dose (4 mg/3 mL) subcutaneous pen injector RxNorm: 8086060 Inject 1 Milligram(s) Subcutaneous QW once a week 02/20/20 23 023 Inactive pregabalin 150 mg capsule RxNorm: 259131 Take 1 Capsule(s) Oral HS at bed time 02/19/20 23 023 Inactive pregabalin 100 mg capsule RxNorm: 278116 Take 1 Capsule(s) Oral QAM every morning 02/18/20 23 023 Inactive venlafaxine ER 75 mg capsule,extended release 24 hr RxNorm: 107244 Take 3 Capsule(s) Oral QD 02/04/20 23 023 Inactive FreeStyle Chema 2 Sensor kit RxNorm: use as directed 02/04/20 23 023 Inactive FreeStyle Chema 2 Sensor kit RxNorm: use as directed 02/04/20 23 024 Inactive fluconazole 150 mg tablet RxNorm: 949215 Take 1 Tablet(s) Oral on day 3 and on day 6 02/03/20 23 024 Inactive chlorthalidone 25 mg tablet RxNorm: 782001 Take 1 Tablet(s) Oral QAM every morning 02/03/20 23 No Stop Date Active venlafaxine ER 150 mg capsule,extended release 24 hr RxNorm: 962534 Take 1 Capsule(s) Oral QD 02/03/20 23 023 Inactive acetaminophen 500 mg tablet RxNorm: 720356 1 TABLET ORALLY 3 TIMES DAILY (MAX APAP:4GM/24HR) 12/15/19 23 023 Inactive clotrimazole 1 % topical cream RxNorm: 422124 apply 1g topically to top of feet and in between toes BID 12/09/19 23 023 Inactive potassium chloride ER 20 mEq tablet,extended release RxNorm: 223139 Take 1 Tablet(s) Oral BID 12/09/19 23 024 Inactive d/c 20mEq once daily (sent from hospital) nystatin 100,000 unit/gram topical powder RxNorm: 966042 APPLY TO AFFECTED AREAS TOPICALLY 2 TIMES DAILY 11/21/19 23 023 Inactive Nystop 100,000 unit/gram topical powder RxNorm: 829541 Apply to abd folds, under breasts and L side of groin Topical BID x 14 days, then BID PRN 11/20/19 23 023 Inactive dx: yeast dermatitis [place] Ultra Strength 4 %-30 %-10 % topical cream RxNorm: 902921 Apply 1 Gram(s) Topical QID PRN to feet and legs for neuropathic pain 11/11/19 23 024 Inactive clotrimazole 1 % topical cream RxNorm: 939283 Apply 1/2 Gram(s) Topical BID Apply to affected areas of groin, periarea, and abdominal topically 2 times daily 11/10/19 23 023 Inactive hydrocortisone 2.5 % topical cream RxNorm: 018421 Apply 1/2 Gram(s) Topical BID as needed 11/10/19 23 024 Inactive Levemir FlexPen 100 unit/mL (3 mL) solution subcutaneous insulin pen RxNorm: 645538 Inject 30 Unit(s) Subcutaneous BID 10/07/19 23 023 Inactive Humulin R U-500 (Concentrated) Insulin 500 unit/mL subcutaneous soln RxNorm: 619194 Inject 100 Unit(s) Subcutaneous TID 10/07/19 23 024 Inactive Ozempic 0.25 mg or 0.5 mg (2 mg/3 mL) subcutaneous pen injector RxNorm: 6918898 Inject 1/2 Milligram(s) Subcutaneous QW once a week 10/07/19 23 024 Inactive aripiprazole 15 mg tablet RxNorm: 199307 1/2 TAB (7.5MG) ORALLY DAILY (DX:MAJOR DEPRESSIVE DISORDER) 09/23/19 23 023 Inactive Accu-Chek Guide test strips RxNorm: Use 1 Test Strip QID 09/15/19 23 023 Inactive ok to substitute with any covered alternative test strip Lancets,Thin 28 gauge RxNorm: Use 1 as directed QID 09/15/19 23 023 Inactive torsemide 20 mg tablet RxNorm: 580801 Take 1 Tablet(s) Oral BID 09/09/19 23 024 Inactive d/c once daily dosing carvedilol 25 mg tablet RxNorm: 912291 Take 1 Tablet(s) Oral QD 08/25/19 23 024 Inactive pregabalin 150 mg capsule RxNorm: 599597 1 Capsule(s) Oral HS at bed time 08/18/19 23 023 Inactive pregabalin 100 mg capsule RxNorm: 039380 1 Capsule(s) Oral QAM every morning 08/18/19 23 023 Inactive carvedilol 25 mg tablet RxNorm: 720145 1 Tablet(s) Oral QD 07/28/19 23 023 Inactive lisinopril 20 mg tablet RxNorm: 041333 Give 1 Tablet(s) Oral QD 07/28/19 23 023 Inactive Lyrica 150 mg capsule RxNorm: 964023 Take 1 Capsule(s) Oral QHS every night at bedtime 07/19/19 23 023 Inactive d/c 100mg dose Diflucan 150 mg tablet RxNorm: 575663 Take 1 Tablet(s) Oral QD repeat on day 3 and 6 07/19/19 23 023 Inactive pregabalin 100 mg capsule RxNorm: 633906 Take 1 Capsule(s) Oral QAM every morning 07/19/19 23 023 Inactive gatifloxacin 0.5 % eye drops RxNorm: 434454 Instill 1 Drop(s) as directed TID Instill 1 drop in to affected eye(s) starting 1 day prior to surgery and continue until gone (do not exceed 4 weeks). 07/13/19 23 023 Inactive carvedilol 25 mg tablet RxNorm: 777971 2 Tablet(s) Oral BID 07/13/19 023 Inactive Humulin R Regular U-100 Insulin 100 unit/mL injection solution RxNorm: 677037 85 Unit(s) Injection TID 07/13/19 23 023 Inactive ketorolac 0.5 % eye drops RxNorm: 544404 Instill 1 Drop(s) as directed QID Instill 1 drop into affected eye(s) 4 times daily starting 1 day prior to surgery and continue until gone (do not exceed 4 weeks). 07/13/19 023 Inactive Diflucan 150 mg tablet RxNorm: 339898 Take 1 Tablet(s) Oral QD repeat on day 3 and 6 06/30/19 23 023 Inactive Accu-Chek Guide test strips RxNorm: Use 1 Test Strip QID Use 1 test strip to monitor blood glucose 4 times daily and as needed. Dx:E11.42. 06/23/19 23 023 Inactive ok to substitute with any covered alternative test strip dextromethorphan-gu aifenesin 10 mg-100 mg/5 mL oral liquid RxNorm: 178706 Take 10 Milliliter(s) Oral every 4 hours as needed for cough 06/19/19 23 023 Inactive dextromethorphan-gu aifenesin 10 mg-100 mg/5 mL oral liquid RxNorm: 416584 Take 10 Milliliter(s) Oral every 4 hours as needed for cough 06/19/19 23 023 Inactive Lyrica 150 mg capsule RxNorm: 656055 Take 1 Capsule(s) Oral QHS every night at bedtime 06/18/19 023 Inactive d/c 100mg dose aripiprazole 15 mg tablet RxNorm: 037900 1/2 TAB (7.5MG) ORALLY DAILY (DX:MAJOR DEPRESSIVE DISORDER) 06/05/19 023 Inactive pregabalin 100 mg capsule RxNorm: 762617 1 Capsule(s) Oral QAM every morning 06/02/19 023 Inactive Banophen 50 mg capsule RxNorm: 8873178 Take 1 Capsule(s) Oral Q6H every 6 hours as needed 05/19/19 23 No Stop Date Active Novolog Flexpen U-100 Insulin aspart 100 unit/mL (3 mL) subcutaneous RxNorm: 3577768 Inject 10 Unit(s) Subcutaneous QHS every night at bedtime with nighttime snack 04/08/20 022 Inactive Novolog Flexpen U-100 Insulin aspart 100 unit/mL (3 mL) subcutaneous RxNorm: 5388405 Inject 42 Unit(s) Subcutaneous TID in addition to sliding scale 04/08/20 022 Inactive d/c 36u albuterol sulfate HFA 90 mcg/actuation aerosol inhaler RxNorm: 7372079 Take 2 Puff(s) Inhalation Q4H every four hours as needed as needed for SOB, cough, or wheezing 04/07/20 030 Active Banophen 50 mg capsule RxNorm: 5867171 Take 1 Capsule(s) Oral Q6H every 6 hours as needed 04/06/20 023 Inactive diphenhydramine 50 mg tablet RxNorm: 8472866 Take 1 Tablet(s) Oral Q6H every 6 hours as needed 04/06/20 22 022 Inactive diphenhydramine 50 mg tablet RxNorm: 3973737 1 Tablet(s) Oral Q6H every 6 hours as needed 04/06/20 22 022 Inactive Abilify 15 mg tablet RxNorm: 175728 1/2 Tablet(s) Oral QD 03/10/20 22 023 Inactive Shingrix (PF) 50 mcg/0.5 mL intramuscular suspension, kit RxNorm: 4684807 Administer 1/2 Milliliter(s) Intramuscular QD one time shingrix step 2 ( step 1 given 11/04/21) WITH needle - Nursing please administer upon arrival and once administered post a bridge message with date of administration, neck band setter, expiration date, and lot# so we can update [facility] 02/18/20 22 022 Inactive dispense with needle Shingrix (PF) 50 mcg/0.5 mL intramuscular suspension, kit RxNorm: 8599887 Administer 1/2 Milliliter(s) Intramuscular QD one time shingrix step 2 ( step 1 given 11/04/21) WITH needle - Nursing please administer upon arrival and once administered post a bridge message with date of administration, neck band setter, expiration date, and lot# so we can update [facility] 02/18/20 22 022 Inactive dispense with needle polyethylene glycol 3350 17 gram/dose oral powder RxNorm: 254378 Take 17=1 capful Gram(s) Oral QD mix with 4-8oz of liquid 01/08/20 22 023 Inactive take this in addition to BID prn order Lyrica 100 mg capsule RxNorm: 655728 Take 1 Capsule(s) Oral QAM every morning 01/08/20 22 022 Inactive d/c 50mg dose acetaminophen 500 mg tablet RxNorm: 055693 Take 1 Tablet(s) Oral TID 01/08/20 22 022 Inactive d/c PRN order Lyrica 150 mg capsule RxNorm: 743495 Take 1 Capsule(s) Oral QHS every night at bedtime 01/08/20 22 023 Inactive d/c 100mg dose Abilify 5 mg tablet RxNorm: 432683 Take 1 Tablet(s) Oral QD take 1 tab po QD #30 refill 5 dx: MDD 12/12/19 22 022 Inactive Abilify 5 mg tablet RxNorm: 725501 Take 1 Tablet(s) Oral QD take 1 tab po QD #30 refill 5 dx: MDD 12/12/19 22 022 Inactive Novolog Flexpen U-100 Insulin aspart 100 unit/mL (3 mL) subcutaneous RxNorm: 2179561 Inject 42 Unit(s) Subcutaneous TID in addition to sliding scale 12/10/19 22 022 Inactive d/c 36u chlorthalidone 25 mg tablet RxNorm: 801891 Take 1 Tablet(s) Oral QAM every morning 12/10/19 22 023 Inactive pregabalin 50 mg capsule RxNorm: 807596 Take 1 Capsule(s) Oral QAM every morning 11/12/19 22 022 Inactive tetanus-diphtheria toxoids-Td 2 Lf unit-2 Lf unit/0.5 mL IM suspension RxNorm: 139 Take 0.5 Miscellaneous Intramuscular 11/12/19 22 022 Inactive need tdap - nursing to administer upon arrival pregabalin 50 mg capsule RxNorm: 405689 Take 1 Capsule(s) Oral QAM every morning 10/16/19 022 Inactive pregabalin 50 mg capsule RxNorm: 443308 Take 1 Capsule(s) Oral QAM every morning 10/16/19 22 022 Inactive pregabalin 50 mg capsule RxNorm: 405923 1 Capsule(s) Oral QAM every morning 10/15/19 22 022 Inactive Shingrix (PF) 50 mcg/0.5 mL intramuscular suspension, kit RxNorm: 9990221 Administer 1/2 Milliliter(s) Intramuscular one time Nursing please administer upon arrival and once administered post a bridge message with date of administration, neck band setter, expiration date, and lot# so we can update [facility]. 10/09/19 22 022 Inactive shingrix step 1 Shingrix (PF) 50 mcg/0.5 mL intramuscular suspension, kit RxNorm: 1280671 Administer 1/2 Milliliter(s) Intramuscular one time Nursing please administer upon arrival and once administered post a bridge message with date of administration, neck band setter, expiration date, and lot# so we can update [facility]. 10/09/19 22 022 Inactive shingrix step 1 cholecalciferol (vitamin D3) 1,250 mcg (50,000 unit) capsule RxNorm: 166181 Take 1 Capsule(s) Oral QW once a [...] aspart 100 unit/mL (3 mL) subcutaneous RxNorm: 1062562 Inject 10 Unit(s) Subcutaneous QHS every night at bedtime with nighttime snack 10/08/19 22 Inactive Shingrix (PF) 50 mcg/0.5 mL intramuscular suspension, kit RxNorm: 1858052 ADMINISTER 2-DOSE SERIES PER CDC GUIDELINES 10/08/19 22 Active Shingrix (PF) 50 mcg/0.5 mL intramuscular suspension, kit RxNorm: 7705200 ADMINISTER 2-DOSE SERIES PER CDC GUIDELINES 10/08/19 22 Inactive Novolog Flexpen U-100 Insulin aspart 100 unit/mL (3 mL) subcutaneous RxNorm: 1960291 Inject 36 Unit(s) Subcutaneous TID in addition to sliding scale 10/08/19 22 Inactive Novofine Autocover 30 gauge x 1/3 needle RxNorm: Use 1 Miscellaneous UD as directed Use 1 needle as directed to administer insulin 5 times a day Dx:E11.42. 10/03/19 22 Inactive ok to substitute with any covered alternative pen needle benzoyl peroxide 10 % topical cleanser RxNorm: 264912 Apply 1 Application Topical QD apply to face, wash rinse and dry once daily (may change to QOD if drying) 08/19/19 22 022 Inactive (%covered by insurance) #60ml refill 11 dx: acne benzoyl peroxide 10 % topical cleanser RxNorm: 221974 Apply 1 Application Topical QD apply to face, wash rinse and dry once daily (may change to QOD if drying) 08/19/19 22 022 Inactive (%covered by insurance) #60ml refill 11 dx: acne benzoyl peroxide 10 % topical cleanser RxNorm: 436698 Apply 1 Application Topical QD apply to face, wash rinse and dry once daily (may change to QOD if drying) 08/19/19 22 022 Inactive (%covered by insurance) #60ml refill 11 dx: acne Lyrica 50 mg capsule RxNorm: 404500 Take 1 Capsule(s) Oral QAM every morning Take 1 capsule by mouth once daily 08/19/19 22 022 Inactive benzoyl peroxide 10 % topical cleanser RxNorm: 983294 Apply 1 Application Topical QD apply to face, wash rinse and dry once daily (may change to QOD if drying) 08/19/19 22 022 Inactive (%covered by insurance) #60ml refill 11 dx: acne Lyrica 100 mg capsule RxNorm: 534470 Take 1 Capsule(s) Oral QHS every night at bedtime Take 1 capsule by mouth once daily at bedtime 08/19/19 22 022 Inactive Lyrica 100 mg capsule RxNorm: 636269 Take 1 Capsule(s) Oral QHS every night at bedtime Take 1 capsule by mouth once daily at bedtime 08/16/19 22 022 Inactive Lyrica 50 mg capsule RxNorm: 344955 Take 1 Capsule(s) Oral QAM every morning Take 1 capsule by mouth once daily 08/16/19 22 022 Inactive Levemir FlexTouch U-100 Insulin 100 unit/mL (3 mL) subcutaneous pen RxNorm: 539314 Inject 86 Unit(s) Subcutaneous BID 08/05/19 22 022 Inactive d/c 83units BID Lyrica 100 mg capsule RxNorm: 750088 Take 1 Capsule(s) Oral QHS every night at bedtime Take 1 capsule by mouth once daily at bedtime 07/14/19 22 022 Inactive Lyrica 50 mg capsule RxNorm: 362472 Take 1 Capsule(s) Oral QAM every morning Take 1 capsule by mouth once daily 07/14/19 22 022 Inactive Levemir FlexTouch U-100 Insulin 100 unit/mL (3 mL) subcutaneous pen RxNorm: 970383 Inject 83 Unit(s) Subcutaneous BID 07/08/19 22 [...] test strip hydralazine 50 mg tablet RxNorm: 131618 Take 1 Tablet(s) Oral QID 05/05/20 21 022 Inactive venlafaxine ER 225 mg tablet,extended release 24 hr RxNorm: 247554 Take 1 Tablet(s) Oral QD 05/05/20 21 021 Inactive venlafaxine ER 225 mg tablet,extended release 24 hr RxNorm: 999326 Take 1 Tablet(s) Oral QD 05/05/20 022 Inactive isosorbide mononitrate ER 30 mg tablet,extended release 24 hr RxNorm: 482946 Take 1 Tablet(s) Oral QD 05/05/20 024 Inactive hydralazine 50 mg tablet RxNorm: 717659 Take 1 Tablet(s) Oral QID 05/05/20 021 Inactive aspirin 81 mg tablet,delayed release RxNorm: 348653 Take 1 Tablet(s) Oral QD 03/31/20 022 Inactive Vitamin D2 1,250 mcg (50,000 unit) capsule RxNorm: 9828790 Take 1 Capsule(s) Oral QW once a week x 12 weeks 03/31/20 Inactive Vitamin D2 1,250 mcg (50,000 unit) capsule RxNorm: 0121729 Take 1 Capsule(s) Oral QW once a week 03/31/20 Inactive Zetia 10 mg tablet RxNorm: 454966 Take 1 Tablet(s) Oral QD 03/31/20 024 Inactive Zetia 10 mg tablet RxNorm: 927260 Take 1 Tablet(s) Oral QD 03/31/20 Inactive hydralazine 25 mg tablet RxNorm: 535708 Take 1 Tablet(s) Oral QID 03/31/20 021 Inactive hydralazine 25 mg tablet RxNorm: 018907 Take 1 Tablet(s) Oral QID 03/31/20 021 Inactive hydralazine 10 mg tablet RxNorm: 683508 Take 1 Tablet(s) Oral QID 03/03/20 021 Inactive cephalexin 500 mg tablet RxNorm: 446393 Take 1 Tablet(s) Oral QID 02/27/20 021 Inactive cephalexin 500 mg tablet RxNorm: 339752 Take 1 Tablet(s) Oral QID 02/27/20 21 021 Inactive lisinopril 40 mg tablet RxNorm: 156955 Take 1 Tablet(s) Oral QD 02/11/20 023 Inactive Eliquis 5 mg tablet RxNorm: 4594771 Take 1 Tablet(s) Oral BID 01/05/20 022 Inactive Eliquis 5 mg tablet RxNorm: 6437467 Take 2 Tablet(s) Oral QD 01/01/20 021 Inactive Lyrica 50 mg capsule RxNorm: 579832 Take 1 Capsule(s) Oral QAM every morning 12/24/19 21 021 Inactive Lyrica 100 mg capsule RxNorm: 119199 Take 1 Capsule(s) Oral QHS every night at bedtime 12/24/19 021 Inactive clotrimazole 1 % topical cream RxNorm: 631786 Apply to right foot and toes Topical BID 12/04/19 21 023 Inactive metoprolol succinate ER 200 mg tablet,extended release 24 hr RxNorm: 098893 Take 1 Tablet(s) Oral QD 12/04/19 023 Inactive ciprofloxacin 500 mg tablet RxNorm: 270995 Take 1 Tablet(s) Oral QD 11/30/19 021 Inactive DX ofloxacin otic drops Accu-Chek Guide test strips RxNorm: USE 1 TO CHECK GLUCOSE 4 TIMES DAILY AND NEEDED 11/15/19 023 Inactive Blood Glucose Test strips RxNorm: Use 1 Test Strip QID at PRN 11/05/19 21 023 Inactive E11.42 lisinopril 30 mg tablet RxNorm: 511561 Take 1 Tablet(s) Oral QD 10/30/19 021 Inactive lisinopril 20 mg tablet RxNorm: 445563 Take 1 Tablet(s) Oral QD 10/23/19 021 Inactive lisinopril 20 mg tablet RxNorm: 362582 Take 1 Tablet(s) Oral QD 10/23/19 21 021 Inactive lisinopril 10 mg tablet RxNorm: 854550 Take 1 Tablet(s) Oral QD 10/02/19 21 021 Inactive icosapent ethyl 1 gram capsule RxNorm: 7857978 Take 2 Capsule(s) (2 gm) Oral BID with meals 09/12/19 024 Inactive Okay to dispense one 2gm tab if you have that available. icosapent ethyl 1 gram capsule RxNorm: 5821887 Take 2 Capsule(s) Oral BID 09/12/19 21 021 Inactive Okay to dispense one 2gm tab if you have that available. amlodipine 10 mg tablet RxNorm: 080345 Take 1 Tablet(s) Oral QD 09/04/19 022 Inactive aspirin 81 mg tablet,delayed release RxNorm: 523877 Take 1 Tablet(s) Oral QD 09/04/19 21 021 Inactive Levemir FlexTouch U-100 Insulin 100 unit/mL (3 mL) subcutaneous pen RxNorm: 941505 Inject 150 Unit(s) Subcutaneous BID 09/04/19 022 Inactive venlafaxine ER 150 mg tablet,extended release 24 hr RxNorm: 988438 Take 1 Tablet(s) Oral QD 09/04/19 021 Inactive clotrimazole-betame thasone 1 %-0.05 % topical cream RxNorm: 267122 Apply to rash on red area on left abdomen/chest Topical BID 08/10/19 21 021 Inactive amlodipine 5 mg tablet RxNorm: 711745 Take 1 Tablet(s) Oral QD 07/31/19 21 021 Inactive cephalexin 500 mg tablet RxNorm: 574881 Take 1 Tablet(s) Oral BID BID - Twice Daily 07/31/19 21 021 Inactive Start 08/01/20 pantoprazole 40 mg tablet,delayed release RxNorm: 053285 Take 1 Tablet(s) Oral QAM every morning 07/08/19 022 Inactive senna 8.6 mg tablet RxNorm: 455989 Take 1 Tablet(s) Oral QD 07/08/19 022 Inactive carbamazepine 200 mg tablet RxNorm: 267767 Take 1 Tablet(s) Oral BID 07/08/19 21 022 Inactive clopidogrel 75 mg tablet RxNorm: 517771 Take 1 Tablet(s) Oral QD 07/08/19 021 Inactive Blood Glucose Test strips RxNorm: Use 1 Test Strip QID at PRN 07/08/19 21 021 Inactive E11.42 Novolog Flexpen U-100 Insulin aspart 100 unit/mL (3 mL) subcutaneous RxNorm: 0570468 Administer per sliding scale Milliliter(s) Subcutaneous TID 151-200: 10 u; 201-250: 20 u; 251-300: 30 u; 301-350: 40 u; 351-400: 50 u. 07/08/19 022 Inactive lisinopril 5 mg tablet RxNorm: 946139 Take 1 Tablet(s) Oral QD 07/08/19 21 021 Inactive Novolog Flexpen U-100 Insulin aspart 100 unit/mL (3 mL) subcutaneous RxNorm: 7358698 Inject 85 Unit(s) Subcutaneous TID 07/08/19 022 Inactive pravastatin 80 mg tablet RxNorm: 276201 Take 1 Tablet(s) Oral QHS every night at bedtime 07/08/19 023 Inactive clotrimazole 1 % topical cream RxNorm: 281703 Apply to bilateral groin areas Topical BID 07/08/19 022 Inactive metoprolol succinate ER 200 mg tablet,extended release 24 hr RxNorm: 672144 Take 1 Tablet(s) Oral QD 07/08/19 21 021 Inactive Vitamin D3 25 mcg (1,000 unit) tablet RxNorm: 343334 Take 1 Tablet(s) Oral QD 07/08/19 021 Inactive isosorbide dinitrate 30 mg tablet RxNorm: 583132 Take 1 Tablet(s) Oral QD 07/08/19 021 Inactive Levemir FlexTouch U-100 Insulin 100 unit/mL (3 mL) subcutaneous pen RxNorm: 371522 Inject 140 Unit(s) Subcutaneous BID 07/08/19 021 Inactive torsemide 20 mg tablet RxNorm: 482619 Take 1 Tablet(s) Oral QD 07/08/19 21 023 Inactive venlafaxine 75 mg tablet RxNorm: 470482 Take 1 Tablet(s) Oral QD 07/08/19 21 021 Inactive acetaminophen 500 mg tablet RxNorm: 098737 Take 1 Tablet(s) Oral TID as needed for headache 06/18/19 21 021 Inactive acetaminophen 500 mg tablet RxNorm: 502072 Take 1 Tablet(s) Oral TID as needed for headache 06/18/19 21 021 Inactive Lyrica 100 mg capsule RxNorm: 752216 Take 1 Capsule(s) Oral QHS every night at bedtime 06/11/19 21 021 Inactive Lyrica 50 mg capsule RxNorm: 529203 Take 1 Capsule(s) Oral QAM every morning 06/10/19 21 021 Inactive hydrocortisone 2.5 % topical cream RxNorm: 910492 Apply to bilateral groin creases Topical BID 05/15/20 20 021 Inactive clotrimazole 1 % topical cream RxNorm: 177319 Apply to bilateral groin areas Topical BID 05/15/20 20 021 Inactive Lyrica 50 mg capsule RxNorm: 135845 Take 1 Capsule(s) Oral QAM every morning 05/14/20 20 020 Inactive Lyrica 100 mg capsule RxNorm: 308101 Take 1 Capsule(s) Oral QHS every night [...] Inactive Nystop 100,000 unit/gram topical powder RxNorm: 392519 Apply to abd folds, under breasts and L side of groin Topical BID x 14 days, then BID PRN 04/08/20 20 Inactive dx: yeast dermatitis Lyrica 100 mg capsule RxNorm: 912283 Take 1 Capsule(s) Oral QHS every night at bedtime 03/13/20 20 Inactive Lyrica 50 mg capsule RxNorm: 036397 Take 1 Capsule(s) Oral QAM every morning 03/13/20 20 Inactive ketoconazole 2 % shampoo RxNorm: 219964 Apply Topical two times a week with showers 03/11/20 20 Inactive cholecalciferol (vitamin D3) 50 mcg (2,000 unit) tablet RxNorm: 263103 Take 1 Tablet(s) Oral QD 03/11/20 20 Inactive Zetia 10 mg tablet RxNorm: 759267 Take 1 Tablet(s) Oral QD 03/07/20 20 Inactive Zetia 10 mg tablet RxNorm: 109364 Take 1 Tablet(s) Oral QD 03/07/20 20 Inactive Lyrica 50 mg capsule RxNorm: 385053 Take 1 Capsule(s) Oral QAM every morning 02/15/20 20 Inactive Lyrica 100 mg capsule RxNorm: 122626 Take 1 Capsule(s) Oral QHS every night at bedtime 02/15/20 20 Inactive Lyrica 100 mg capsule RxNorm: 997049 Take 1 Capsule(s) Oral QHS every night at bedtime 02/15/20 20 Inactive Lyrica 50 mg capsule RxNorm: 963493 Take 1 Capsule(s) Oral QAM every morning 02/15/20 20 Inactive metoprolol succinate ER 200 mg tablet,extended release 24 hr RxNorm: 642527 Take 1 Tablet(s) Oral QD 08/12/19 Active loperamide 2 mg capsule RxNorm: 701934 Take 1 Capsule(s) Oral QID as needed 06/12/19 Active hydralazine 50 mg tablet RxNorm: 133727 Take 1 Tablet(s) Oral QID 08/12/19 23 Active Soft Touch Lancets RxNorm: miscellaneous 03/04/20 24 Active venlafaxine ER 75 mg capsule,extended release 24 hr RxNorm: 542210 Take 3 Capsule(s) Oral QD 06/12/19 22 023 Inactive polyethylene glycol 3350 17 gram/dose oral powder RxNorm: 804630 Take 17=1 capful Gram(s) Oral BID as needed mix with 4-8oz of liquid 06/12/19 22 024 Inactive icosapent ethyl 1 gram capsule RxNorm: 9479890 Take 2 Capsule(s) (2 gm) Oral BID with meals 10/07/19 23 023 Inactive Okay to dispense one 2gm tab if you have that available. Levemir FlexTouch U-100 Insulin 100 unit/mL (3 mL) subcutaneous pen RxNorm: 194558 Inject 80 Unit(s) Subcutaneous BID 07/14/19 23 023 Inactive Novolog Flexpen U-100 Insulin aspart 100 unit/mL (3 mL) subcutaneous RxNorm: 7234681 Insert 30 Unit(s) Subcutaneous TID with meals [...] of [facility] [address] [address] [id number] [place] Referral Records Received 09/21/2022 Referral: [facility]: [address] [id number] [place] Referral Completed 05/28/2021 Referral: General Cardiology Referral Complet ed 01/03/2021 Referral: General Psychologist Referral Close d Referral: General Psychiatrist Referral Patient/Family Scheduling Appointment Referral: General Physical Medicine Referral Facility Scheduling Appointment Instructions Comment Date Leonid is a Male being seen living at [facility]. Initial [facility] visit 01/2020. PMHx including DMII, CAD w/ 5 stents, Depression, Seizure Disorder and CKD stage 3. He moved into [facility] in 12/2019 but after a hospitalization 05/2021 he moved to the [facility] to have closer nursing attention. Sister Jyotsna involved in his care cell# [phone] Guardian: Giulia (tapan met in person 09/01/21), [...] note from 11.08.2023 at [facility] (follow up 6 months)Colon & Rectal Surgery visit scheduled for 03/08/24 with Matilde Pérez PA-C. 02/08/2024
--- OUTSIDE RECORDS SUMMARY | 2024-07-22 19:00 | XMS_ITS | CCD ---
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 Office Systems Technology Instructor Name Role Phone Harrison Durham Primary Care Provider Leona vailable Unavailable Chronic Care Management Unavaila ble Summary Purpose DataExchange Insurance Providers Payer name Policy type / Coverage type Covered green party ID Effective Begin Date Effective End Date [place] [id number] Unknown Unknown [place] Medicare Part B [id number] Unknown Unknown Family history Sister Brittany Suggs [...] on file 07/11/[address]: [id number] Never smoker 01/16 Sexually Active? Unknown No [...] arrangements Unknown [facility] 09/03/[address]: [id number] No Alcohol Consum ption 09/02/2020 Allergies, Adverse Reactions, Alerts Substance Reaction Codes Entered Date Inactivated Date Status * NO KNOWN FOOD ALLERGIES Unknown 07/13/2023 No Inactive Date Active LISINOPRIL RxNorm: 76097 02/12/2020 No Inactive Da te Active Metformin HCl Unknown 02/12/2020 No Inactive Cristiano e Active * NO KNOWN ENVIRONMENTAL ALLERGIES Unknown 07/13/2023 No Inactive Date Active Problems Condition Codes Effective Dates Condition St atus Diabetic neuropathy associat ed with type 2 diabetes mellitus ICD-10: E11.40 ICD-9: 250.60 07/11/2024 Active Hemorrhoids ICD-10: K64.9 ICD-9: 455.6 07/11/2024 Active Lower extremity edema ICD-10: R60.0 ICD-9: 782.3 07/11/2024 Active PVD (peripheral vascular disease) ICD-10 : I73.9 ICD-9: 443.9 07/11/2024 Active Type 2 diabetes mellitus wit h diabetic polyneuropathy, with long-term current use of insulin ICD-10: E11.42 ICD-9: 250.60 07/11/2024 Active Candidal intertrigo ICD-10: B37.2 ICD-9: 112.3 06/13/2024 Active Hyperlipidemia associated wi th type 2 diabetes mellitus ICD-10: E11.69 ICD-9: 250.80 06/13/2024 Active Hypertensive heart disease w ithout heart failure ICD-10: I11.9 ICD-9: 402.90 06/13/2024 Active Hypokalemia ICD-10: E87.6 ICD-9: 276.8 06/13/2024 Active Onychogryposis ICD-10: L60.2 ICD-9: 703.8 06/13/2024 Active Stage 2 chronic kidney disea se due to type 2 diabetes mellitus ICD-10: E11.22 ICD-9: 250.40 06/13/2024 Active Advance care planning ICD-10: Z71.89 ICD-9: V65.49 05/08/2024 Active BMI 60.0-69.9, adult ICD-10: Z68.44 ICD-9: V85.44 03/07/2024 Active Low back pain ICD-10: M54.50 ICD-9: 724.2 03/07/2024 Active Paraparesis of both lower limbs ICD-10: G82.20 ICD-9: 344.1 03/07/2024 Active Physical deconditioning ICD-10: R53.81 ICD-9: 799.3 03/07/2024 Active Advanced care planning - to document end of life discussions Unknown 02/08/2024 Active Amputated toe of right foot ICD-10: S98. 131A ICD-9: 895.0 02/08/2024 Active Annual physical exam ICD-10: Z00.00 ICD-9: V70.0 02/08/2024 Active 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 ICD-10: K59.01 ICD-9: 564.01 02/08/2024 Active History of anemia due to CKD ICD-10: N18 .9 ICD-9: 585.9 02/08/2024 Active Hx of deep venous thrombosis ICD-10: Z86 .718 ICD-9: V12.51 02/08/2024 Active Hypercoagulable state ICD-10: D68.59 ICD-9: 289.81 02/08/2024 Active Learning disability ICD-10: F81.9 ICD-9: 315.2 02/08/2024 Active Major depression, recurrent ICD-10: F33. 9 ICD-9: 296.30 02/08/2024 Active Pressure ulcer of left calf, unstageable ICD-10: L89.890 ICD-9: 707.09 02/08/2024 Active Reducible umbilical hernia ICD-10: K42.9 ICD-9: 553.1 02/08/2024 Active Seizure disorder ICD-10: G40.909 ICD-9: 345.90 02/08/2024 Active Vitamin D deficiency ICD-10: E55.9 ICD-9: 268.9 02/08/2024 Active Callus of heel ICD-10: L84 ICD-9: 700 10/12/2023 Resolved Gout due to renal impairment ICD-10: M10 .30 ICD-9: 274.10 10/12/2023 Resolved 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 07/24/19 25 025 Inactive ammonium lactate 12 % topical cream RxNorm: 125095 Apply 1 Application Topical BID 07/20/19 25 No Stop Date Active senna 8.6 mg tablet RxNorm: 733050 Take 1 Tablet(s) Oral QD 07/18/19 25 025 Inactive ezetimibe 10 mg tablet RxNorm: 717834 Take 1 Tablet(s) Oral QD 07/18/19 25 No Stop Date Active metoprolol succinate ER 200 mg tablet,extended release 24 hr RxNorm: 119658 Take 1 Tablet(s) Oral QD 06/19/19 25 No Stop Date Active pantoprazole 40 mg tablet,delayed release RxNorm: 208144 Take 1 Tablet(s) Oral QAM every morning 06/19/19 25 No Stop Date Active hydralazine 50 mg tablet RxNorm: 581190 Take 1 Tablet(s) Oral QID 06/19/19 25 No Stop Date Active carbamazepine 200 mg tablet RxNorm: 297215 Take 1 Tablet(s) Oral BID 06/19/19 25 No Stop Date Active amlodipine 10 mg tablet RxNorm: 560849 Take 1 Tablet(s) Oral QD 06/19/19 25 No Stop Date Active Eliquis 5 mg tablet RxNorm: 2511612 Take 1 Tablet(s) Oral BID 06/19/19 25 No Stop Date Active pen needle, diabetic 30 gauge x 3/16 RxNorm: Use 1 6 times per day w/insulin 06/14/19 25 026 Active pen needle, diabetic 30 gauge x 3/16 RxNorm: Use 1 needle 6 times per day w/insulin 06/14/19 25 025 Inactive nystatin 100,000 unit/gram topical powder RxNorm: 361072 Apply 1 Application Topical BID as needed abdominal/breast /groin folds 05/24/19 25 026 Active pregabalin 100 mg capsule RxNorm: 819194 Take 1 Capsule(s) Oral QAM every morning 05/22/19 25 025 Inactive nystatin 100,000 unit/gram topical powder RxNorm: 512214 Apply 1 Application Topical BID as needed abdominal/breast /groin folds 04/11/20 24 024 Inactive chlorthalidone 25 mg tablet RxNorm: 765937 Take 1 Tablet(s) Oral QAM every morning 04/06/20 24 No Stop Date Active pregabalin 150 mg capsule RxNorm: 314207 Take 1 Capsule(s) Oral QHS every night at bedtime 03/31/20 24 024 Inactive Vascepa 1 gram capsule RxNorm: 3093716 Take 2 Capsule(s) Oral BID 03/30/20 24 025 Active rosuvastatin 40 mg tablet RxNorm: 855430 1 TAB ORALLY EVERY EVENING (DX:CORONARY ARTERY DISEASE) 03/28/20 24 No Stop Date Active venlafaxine ER 75 mg capsule,extended release 24 hr RxNorm: 627610 3 CAPS (225MG) ORALLY DAILY (DX: MOOD DISORDER) 03/28/20 No Stop Date Active pregabalin 100 mg capsule RxNorm: 422083 Take 1 Capsule(s) Oral QAM every morning 03/20/20 Inactive cholecalciferol (vitamin D3) 1,250 mcg (50,000 unit) capsule RxNorm: 264388 Take 1 Capsule(s) Oral QW once a [...] Insulin 100 unit/mL (3 mL) subcutaneous RxNorm: 8373017 Inject 40 Unit(s) Subcutaneous BID 03/07/20 025 Inactive Please dispense one month supply. Humulin R U-500 (Concentrated) Insulin 500 unit/mL subcutaneous soln RxNorm: 392617 Inject 100 Unit(s) Subcutaneous AC before meals Three times daily before meals. 03/07/20 024 Inactive Accu-Chek Guide Glucose Meter RxNorm: Use 1 Miscellaneous UD as directed Use glucose meter to monitor blood glucose 4 times daily and as needed. Dx:E11.42 03/04/20 024 Inactive Accu-Chek Guide test strips RxNorm: Use 1 Test Strip QID And PRN-- also dispense Soft Touch Lancets (QID and PRN) to be use with new Accu [place] meter 03/04/20 Inactive ok to substitute with any covered alternative test strip FreeStyle Chema 2 Sensor kit RxNorm: Use UD as directed 03/02/20 Inactive Pen Needle 30 gauge x 16 RxNorm: Pen(s) Use 1 needle as directed TID 03/02/20 Inactive nystatin 100,000 unit/gram topical powder RxNorm: 246730 Apply 1 Application Topical BID as needed abdominal/breast /groin folds 03/02/20 Inactive FreeStyle Chema 2 Sensor kit RxNorm: Use UD as directed 03/02/20 025 Inactive Accu-Chek Guide test strips RxNorm: Use 1 Test Strip QID 03/02/20 Inactive ok to substitute with any covered alternative test strip Lancets,Thin 28 gauge RxNorm: Use 1 as directed QID lancet 03/02/20 Inactive Pen Needle 30 gauge x 16 RxNorm: Pen(s) Use 1 needle as directed TID 03/02/20 Inactive Humulin R U-500 (Concentrated) Insulin 500 unit/mL subcutaneous soln RxNorm: 886705 Inject 100 Unit(s) Subcutaneous TID 02/17/20 24 024 Inactive Humulin R U-500 (Concentrated) Insulin 500 unit/mL subcutaneous soln RxNorm: 378440 Inject 100 Unit(s) Subcutaneous TID 02/10/20 24 024 Inactive Basaglar KwikPen U-100 Insulin 100 unit/mL (3 mL) subcutaneous RxNorm: 6497926 Inject 30 Unit(s) Subcutaneous BID 02/10/20 24 024 Inactive Please dispense one month supply. pregabalin 100 mg capsule RxNorm: 537915 Take 1 Capsule(s) Oral QAM every morning 02/07/20 24 09/23/2 024 Inactive isosorbide mononitrate ER 60 mg tablet,extended release 24 hr RxNorm: 150813 Take 1 Tablet(s) Oral QD 02/01/20 24 025 Active aripiprazole 15 mg tablet RxNorm: 645542 Take 1/2 Tablet(s) Oral QD 02/01/20 24 025 Active torsemide 20 mg tablet RxNorm: 293860 1 TAB ORALLY DAILY (DX: EDEMA) 01/27/20 No Stop Date Active potassium chloride ER 20 mEq tablet,extended release(part/cryst) RxNorm: 0079202 2 TABS (40MEQ) ORALLY TWICE DAILY (DX: HYPOKALEMIA) 01/27/20 24 025 Inactive cephalexin 500 mg capsule RxNorm: 126266 Take 1 Capsule(s) Oral QID 12/17/19 24 024 Inactive cephalexin 500 mg capsule RxNorm: 306781 Take 1 Capsule(s) Oral QID 12/17/19 24 024 Inactive acetaminophen 500 mg tablet RxNorm: 439376 (MAX APAP:4GM/24HR) Take 1 Tablet(s) Oral TID as needed for pain 12/10/19 24 024 Inactive torsemide 20 mg tablet RxNorm: 920822 Take 1 Tablet(s) Oral QD 10/26/19 24 025 Inactive potassium chloride ER 20 mEq tablet,extended release RxNorm: 128365 Take 2 Tablet(s) Oral BID 10/26/19 24 025 Inactive torsemide 20 mg tablet RxNorm: 764691 Take 1 Tablet(s) Oral QD 10/26/19 24 024 Inactive potassium chloride ER 20 mEq tablet,extended release RxNorm: 586518 Take 2 Tablet(s) Oral BID 10/26/19 24 024 Inactive Artificial Tears (PF) 0.1 %-0.3 % drops in a dropperette RxNorm: 830750 Apply 1-2 Drop(s) Both eyes BID as needed 09/28/19 24 025 Inactive erythromycin 5 mg/gram (0.5 %) eye ointment RxNorm: 832015 Apply 1 Application Both eyes QHS every night at bedtime Instill ~1 cm ribbon into affected eye 09/28/19 24 024 Inactive Artificial Tears (PF) 0.1 %-0.3 % drops in a dropperette RxNorm: 709090 Apply 1-2 Drop(s) Both eyes BID as needed 09/28/19 24 024 Inactive erythromycin 5 mg/gram (0.5 %) eye ointment RxNorm: 286641 Apply 1 Application Both eyes QHS every night at bedtime Instill ~1 cm ribbon into affected eye 09/28/19 24 Inactive acetaminophen 500 mg tablet RxNorm: 220721 (MAX APAP:4GM/24HR) Take 1 Tablet(s) Oral TID as needed for pain 09/24/19 024 Inactive carvedilol 25 mg tablet RxNorm: 341707 Take 1 Tablet(s) Oral QD 09/08/19 24 No Stop Date Active pregabalin 100 mg capsule RxNorm: 313212 Take 1 Capsule(s) Oral QAM every morning 09/07/19 24 024 Inactive bisacodyl 10 mg rectal suppository RxNorm: 272447 Insert 1 Suppository Rectal QD as needed 07/13/19 24 No Stop Date Active polyethylene glycol 3350 17 gram/dose oral powder RxNorm: 813411 Take 17 Gram(s) Oral BID as needed mix in 4-8ox water 07/13/19 24 025 Inactive ketoconazole 2 % shampoo RxNorm: 859684 Apply 1 Application Topical UD as directed 07/13/19 24 No Stop Date Active Ozempic 1 mg/dose (4 mg/3 mL) subcutaneous pen injector RxNorm: 7791828 Inject 1 Milligram(s) Subcutaneous QW once a week 07/13/19 24 No Stop Date Active Guaifenesin AC 10 mg-100 mg/5 mL oral liquid RxNorm: 091287 Take 10 Milliliter(s) Oral Q4H every four hours as needed 07/13/19 24 No Stop Date Active hydrocortisone 2.5 % topical cream RxNorm: 532236 Apply 1 Application Topical BID as needed 07/13/19 24 No Stop Date Active rosuvastatin 20 mg sprinkle capsule RxNorm: 0083160 Take 1 Capsule(s) Oral QD 07/13/19 24 025 Inactive rosuvastatin 40 mg tablet RxNorm: 853210 Take 1 Tablet(s) Oral QPM every evening 07/13/19 24 024 Inactive ezetimibe 10 mg tablet RxNorm: 844677 Take 1 Tablet(s) Oral QD 07/13/19 24 025 Inactive aripiprazole 15 mg tablet RxNorm: 184740 Take 1/2 Tablet(s) Oral QD 07/13/19 24 024 Inactive isosorbide mononitrate ER 60 mg tablet,extended release 24 hr RxNorm: 502777 Take 1 Tablet(s) Oral QD 07/13/19 24 024 Inactive ammonium lactate 12 % topical cream RxNorm: 897186 Apply 1 Application Topical BID 07/13/19 24 025 Inactive Vascepa 1 gram capsule RxNorm: 1168564 Take 2 Capsule(s) Oral BID 07/13/19 24 024 Inactive venlafaxine ER 75 mg capsule,extended release 24 hr RxNorm: 835416 Take 3 Capsule(s) Oral QD 07/13/19 24 024 Inactive Basaglar KwikPen U-100 Insulin 100 unit/mL (3 mL) subcutaneous RxNorm: 2879589 Inject 30U SubQ twice daily 07/07/19 24 024 Inactive Please dispense one month supply. Basaglar KwikPen U-100 Insulin 100 unit/mL (3 mL) subcutaneous RxNorm: 7073059 Inject 30U SubQ twice daily 07/07/19 24 024 Inactive Please dispense one month supply. pregabalin 150 mg capsule RxNorm: 722306 Take 1 Capsule(s) Oral QHS every night at bedtime 07/05/19 24 024 Inactive pregabalin 150 mg capsule RxNorm: 062816 Take 1 Capsule(s) Oral QHS every night at bedtime 07/05/19 24 024 Inactive polyethylene glycol 3350 17 gram/dose oral powder RxNorm: 333694 Take 1 Packet Oral QD as needed (1 packet = 17g) mix with 4-8oz of liquid 06/15/19 024 Inactive bisacodyl 10 mg rectal suppository RxNorm: 441273 Insert one suppository per rectum once daily as needed for constipation 06/15/19 024 Inactive bisacodyl 10 mg rectal suppository RxNorm: 113132 Insert one suppository per rectum once daily as needed for constipation 06/15/19 024 Inactive pregabalin 100 mg capsule RxNorm: 721109 Take 1 Capsule(s) Oral QAM every morning 04/27/20 024 Inactive Levemir FlexPen 100 unit/mL (3 mL) solution subcutaneous insulin pen RxNorm: 343499 Inject 30 Unit(s) Subcutaneous BID 04/27/20 024 Inactive rosuvastatin 40 mg tablet RxNorm: 413225 Take 1 Tablet(s) Oral QPM every evening 04/16/20 024 Inactive D/C rosuvastatin 20mg venlafaxine ER 75 mg capsule,extended release 24 hr RxNorm: 891709 Take 3 Capsule(s) Oral QD 04/14/20 023 Inactive pregabalin 100 mg capsule RxNorm: 844003 Take 1 Capsule(s) Oral QAM every morning [...] strip clotrimazole 1 % topical cream RxNorm: 727291 Take apply topically to abdominal folds twice daily for 14 days 03/12/20 024 Inactive Ozempic 1 mg/dose (4 mg/3 mL) subcutaneous pen injector RxNorm: 1554017 Inject 1 Milligram(s) Subcutaneous QW once a week 03/11/20 023 Inactive rosuvastatin 20 mg tablet RxNorm: 550938 Take 1 Tablet(s) Oral QD 02/26/20 23 023 Inactive d/c pravastatin 80mg Ozempic 1 mg/dose (4 mg/3 mL) subcutaneous pen injector RxNorm: 4091935 Inject 1 Milligram(s) Subcutaneous QW once a week 02/20/20 23 023 Inactive pregabalin 150 mg capsule RxNorm: 427950 Take 1 Capsule(s) Oral HS at bed time 02/19/20 23 023 Inactive pregabalin 100 mg capsule RxNorm: 408381 Take 1 Capsule(s) Oral QAM every morning 02/18/20 023 Inactive venlafaxine ER 75 mg capsule,extended release 24 hr RxNorm: 465257 Take 3 Capsule(s) Oral QD 02/04/20 23 023 Inactive FreeStyle Chema 2 Sensor kit RxNorm: use as directed 02/04/20 23 023 Inactive FreeStyle Chema 2 Sensor kit RxNorm: use as directed 02/04/20 23 024 Inactive fluconazole 150 mg tablet RxNorm: 904740 Take 1 Tablet(s) Oral on day 3 and on day 6 02/03/20 024 Inactive venlafaxine ER 150 mg capsule,extended release 24 hr RxNorm: 431211 Take 1 Capsule(s) Oral QD 02/03/20 23 023 Inactive chlorthalidone 25 mg tablet RxNorm: 570416 Take 1 Tablet(s) Oral QAM every morning 02/03/20 23 024 Inactive acetaminophen 500 mg tablet RxNorm: 699309 1 TABLET ORALLY 3 TIMES DAILY (MAX APAP:4GM/24HR) 12/15/19 23 023 Inactive clotrimazole 1 % topical cream RxNorm: 978501 apply 1g topically to top of feet and in between toes BID 12/09/19 23 025 Inactive potassium chloride ER 20 mEq tablet,extended release RxNorm: 972359 Take 1 Tablet(s) Oral BID 12/09/19 23 024 Inactive d/c 20mEq once daily (sent from hospital) nystatin 100,000 unit/gram topical powder RxNorm: 471249 APPLY TO AFFECTED AREAS TOPICALLY 2 TIMES DAILY 11/21/19 23 023 Inactive Nystop 100,000 unit/gram topical powder RxNorm: 836855 Apply to abd folds, under breasts and L side of groin Topical BID x 14 days, then BID PRN 11/20/19 023 Inactive dx: yeast dermatitis [place] Ultra Strength 4 %-30 %-10 % topical cream RxNorm: 785873 Apply 1 Gram(s) Topical QID PRN to feet and legs for neuropathic pain 11/11/19 23 024 Inactive clotrimazole 1 % topical cream RxNorm: 544400 Apply 1/2 Gram(s) Topical BID Apply to affected areas of groin, periarea, and abdominal topically 2 times daily 11/10/19 023 Inactive hydrocortisone 2.5 % topical cream RxNorm: 605617 Apply 1/2 Gram(s) Topical BID as needed 11/10/19 23 024 Inactive Levemir FlexPen 100 unit/mL (3 mL) solution subcutaneous insulin pen RxNorm: 526269 Inject 30 Unit(s) Subcutaneous BID 10/07/19 23 023 Inactive Humulin R U-500 (Concentrated) Insulin 500 unit/mL subcutaneous soln RxNorm: 793059 Inject 100 Unit(s) Subcutaneous TID 10/07/19 024 Inactive Ozempic 0.25 mg or 0.5 mg (2 mg/3 mL) subcutaneous pen injector RxNorm: 5662065 Inject 1/2 Milligram(s) Subcutaneous QW once a week 10/07/19 23 024 Inactive aripiprazole 15 mg tablet RxNorm: 199056 1/2 TAB (7.5MG) ORALLY DAILY (DX:MAJOR DEPRESSIVE DISORDER) 09/23/19 23 023 Inactive Accu-Chek Guide test strips RxNorm: Use 1 Test Strip QID 09/15/19 23 023 Inactive ok to substitute with any covered alternative test strip Lancets,Thin 28 gauge RxNorm: Use 1 as directed QID 09/15/19 23 023 Inactive torsemide 20 mg tablet RxNorm: 540933 Take 1 Tablet(s) Oral BID 09/09/19 23 024 Inactive d/c once daily dosing carvedilol 25 mg tablet RxNorm: 595975 Take 1 Tablet(s) Oral QD 08/25/19 23 024 Inactive pregabalin 150 mg capsule RxNorm: 621485 1 Capsule(s) Oral HS at bed time 08/18/19 23 023 Inactive pregabalin 100 mg capsule RxNorm: 768573 1 Capsule(s) Oral QAM every morning 08/18/19 23 023 Inactive carvedilol 25 mg tablet RxNorm: 800314 1 Tablet(s) Oral QD 07/28/19 23 023 Inactive lisinopril 20 mg tablet RxNorm: 142221 Give 1 Tablet(s) Oral QD 07/28/19 23 023 Inactive Lyrica 150 mg capsule RxNorm: 461868 Take 1 Capsule(s) Oral QHS every night at bedtime 07/19/19 23 023 Inactive d/c 100mg dose Diflucan 150 mg tablet RxNorm: 229380 Take 1 Tablet(s) Oral QD repeat on day 3 and 6 07/19/19 23 023 Inactive pregabalin 100 mg capsule RxNorm: 731668 Take 1 Capsule(s) Oral QAM every morning 07/19/19 23 023 Inactive gatifloxacin 0.5 % eye drops RxNorm: 133279 Instill 1 Drop(s) as directed TID Instill 1 drop in to affected eye(s) starting 1 day prior to surgery and continue until gone (do not exceed 4 weeks). 07/13/19 23 023 Inactive carvedilol 25 mg tablet RxNorm: 975641 2 Tablet(s) Oral BID 07/13/19 23 023 Inactive Humulin R Regular U-100 Insulin 100 unit/mL injection solution RxNorm: 655653 85 Unit(s) Injection TID 07/13/19 23 023 Inactive ketorolac 0.5 % eye drops RxNorm: 908812 Instill 1 Drop(s) as directed QID Instill 1 drop into affected eye(s) 4 times daily starting 1 day prior to surgery and continue until gone (do not exceed 4 weeks). 07/13/19 23 023 Inactive Diflucan 150 mg tablet RxNorm: 116253 Take 1 Tablet(s) Oral QD repeat on day 3 and 6 06/30/19 23 023 Inactive Accu-Chek Guide test strips RxNorm: Use 1 Test Strip QID Use 1 test strip to monitor blood glucose 4 times daily and as needed. Dx:E11.42. 06/23/19 23 023 Inactive ok to substitute with any covered alternative test strip dextromethorphan-gu aifenesin 10 mg-100 mg/5 mL oral liquid RxNorm: 203451 Take 10 Milliliter(s) Oral every 4 hours as needed for cough 06/19/19 23 023 Inactive dextromethorphan-gu aifenesin 10 mg-100 mg/5 mL oral liquid RxNorm: 025511 Take 10 Milliliter(s) Oral every 4 hours as needed for cough 06/19/19 23 023 Inactive Lyrica 150 mg capsule RxNorm: 522286 Take 1 Capsule(s) Oral QHS every night at bedtime 06/18/19 23 023 Inactive d/c 100mg dose aripiprazole 15 mg tablet RxNorm: 465127 1/2 TAB (7.5MG) ORALLY DAILY (DX:MAJOR DEPRESSIVE DISORDER) 06/05/19 23 023 Inactive pregabalin 100 mg capsule RxNorm: 673536 1 Capsule(s) Oral QAM every morning 06/02/19 23 023 Inactive Banophen 50 mg capsule RxNorm: 8880006 Take 1 Capsule(s) Oral Q6H every 6 hours as needed 05/19/19 23 No Stop Date Active Novolog Flexpen U-100 Insulin aspart 100 unit/mL (3 mL) subcutaneous RxNorm: 8654947 Inject 10 Unit(s) Subcutaneous QHS every night at bedtime with nighttime snack 04/08/20 22 022 Inactive Novolog Flexpen U-100 Insulin aspart 100 unit/mL (3 mL) subcutaneous RxNorm: 5269349 Inject 42 Unit(s) Subcutaneous TID in addition to sliding scale 04/08/20 022 Inactive d/c 36u albuterol sulfate HFA 90 mcg/actuation aerosol inhaler RxNorm: 8583554 Take 2 Puff(s) Inhalation Q4H every four hours as needed as needed for SOB, cough, or wheezing 04/07/20 030 Active Banophen 50 mg capsule RxNorm: 5200532 Take 1 Capsule(s) Oral Q6H every 6 hours as needed 04/06/20 023 Inactive diphenhydramine 50 mg tablet RxNorm: 4664422 Take 1 Tablet(s) Oral Q6H every 6 hours as needed 04/06/20 022 Inactive diphenhydramine 50 mg tablet RxNorm: 7096763 1 Tablet(s) Oral Q6H every 6 hours as needed 04/06/20 022 Inactive Abilify 15 mg tablet RxNorm: 988029 1/2 Tablet(s) Oral QD 03/10/20 023 Inactive Shingrix (PF) 50 mcg/0.5 mL intramuscular suspension, kit RxNorm: 5008625 Administer 1/2 Milliliter(s) Intramuscular QD one time shingrix step 2 ( step 1 given 11/04/21) WITH needle - Nursing please administer upon arrival and once administered post a bridge message with date of administration, datapower consultant, expiration date, and lot# so we can update [facility] 02/18/20 22 022 Inactive dispense with needle Shingrix (PF) 50 mcg/0.5 mL intramuscular suspension, kit RxNorm: 4465013 Administer 1/2 Milliliter(s) Intramuscular QD one time shingrix step 2 ( step 1 given 11/04/21) WITH needle - Nursing please administer upon arrival and once administered post a bridge message with date of administration, datapower consultant, expiration date, and lot# so we can update [facility] 02/18/20 22 022 Inactive dispense with needle polyethylene glycol 3350 17 gram/dose oral powder RxNorm: 261799 Take 17=1 capful Gram(s) Oral QD mix with 4-8oz of liquid 01/08/20 22 025 Inactive take this in addition to BID prn order Lyrica 100 mg capsule RxNorm: 545256 Take 1 Capsule(s) Oral QAM every morning 01/08/20 22 022 Inactive d/c 50mg dose acetaminophen 500 mg tablet RxNorm: 501542 Take 1 Tablet(s) Oral TID 01/08/20 22 022 Inactive d/c PRN order Lyrica 150 mg capsule RxNorm: 489993 Take 1 Capsule(s) Oral QHS every night at bedtime 01/08/20 22 023 Inactive d/c 100mg dose Abilify 5 mg tablet RxNorm: 347763 Take 1 Tablet(s) Oral QD take 1 tab po QD #30 refill 5 dx: MDD 12/12/19 22 022 Inactive Abilify 5 mg tablet RxNorm: 681433 Take 1 Tablet(s) Oral QD take 1 tab po QD #30 refill 5 dx: MDD 12/12/19 22 022 Inactive Novolog Flexpen U-100 Insulin aspart 100 unit/mL (3 mL) subcutaneous RxNorm: 2978732 Inject 42 Unit(s) Subcutaneous TID in addition to sliding scale 12/10/19 22 022 Inactive d/c 36u chlorthalidone 25 mg tablet RxNorm: 432517 Take 1 Tablet(s) Oral QAM every morning 12/10/19 22 023 Inactive pregabalin 50 mg capsule RxNorm: 621754 Take 1 Capsule(s) Oral QAM every morning 11/12/19 22 022 Inactive tetanus-diphtheria toxoids-Td 2 Lf unit-2 Lf unit/0.5 mL IM suspension RxNorm: 139 Take 0.5 Miscellaneous Intramuscular 11/12/19 22 022 Inactive need tdap - nursing to administer upon arrival pregabalin 50 mg capsule RxNorm: 281907 Take 1 Capsule(s) Oral QAM every morning 10/16/19 22 022 Inactive pregabalin 50 mg capsule RxNorm: 773953 Take 1 Capsule(s) Oral QAM every morning 10/16/19 22 022 Inactive pregabalin 50 mg capsule RxNorm: 244028 1 Capsule(s) Oral QAM every morning 10/15/19 22 Inactive Shingrix (PF) 50 mcg/0.5 mL intramuscular suspension, kit RxNorm: 4430745 Administer 1/2 Milliliter(s) Intramuscular one time Nursing please administer upon arrival and once administered post a bridge message with date of administration, datapower consultant, expiration date, and lot# so we can update [facility]. 10/09/19 22 022 Inactive shingrix step 1 Shingrix (PF) 50 mcg/0.5 mL intramuscular suspension, kit RxNorm: 8958395 Administer 1/2 Milliliter(s) Intramuscular one time Nursing please administer upon arrival and once administered post a bridge message with date of administration, datapower consultant, expiration date, and lot# so we [...] aspart 100 unit/mL (3 mL) subcutaneous RxNorm: 0004984 Inject 10 Unit(s) Subcutaneous QHS every night at bedtime with nighttime snack 10/08/19 22 Inactive Shingrix (PF) 50 mcg/0.5 mL intramuscular suspension, kit RxNorm: 3278957 ADMINISTER 2-DOSE SERIES PER CDC GUIDELINES 10/08/19 22 022 Active Shingrix (PF) 50 mcg/0.5 mL intramuscular suspension, kit RxNorm: 3759535 ADMINISTER 2-DOSE SERIES PER CDC GUIDELINES 10/08/19 22 022 Inactive Novolog Flexpen U-100 Insulin aspart 100 unit/mL (3 mL) subcutaneous RxNorm: 3383352 Inject 36 Unit(s) Subcutaneous TID in addition to sliding scale 10/08/19 Inactive cholecalciferol (vitamin D3) 1,250 mcg (50,000 unit) capsule RxNorm: 264518 Take 1 Capsule(s) Oral QW once a week 10/08/19 Inactive Novofine Autocover 30 gauge x 1/3 needle RxNorm: Use 1 Miscellaneous UD as directed Use 1 needle as directed to administer insulin 5 times a day Dx:E11.42. 10/03/19 Inactive ok to substitute with any covered alternative pen needle benzoyl peroxide 10 % topical cleanser RxNorm: 582826 Apply 1 Application Topical QD apply to face, wash rinse and dry once daily (may change to QOD if drying) 08/19/19 022 Inactive (%covered by insurance) #60ml refill 11 dx: acne benzoyl peroxide 10 % topical cleanser RxNorm: 753017 Apply 1 Application Topical QD apply to face, wash rinse and dry once daily (may change to QOD if drying) 08/19/19 022 Inactive (%covered by insurance) #60ml refill 11 dx: acne benzoyl peroxide 10 % topical cleanser RxNorm: 048000 Apply 1 Application Topical QD apply to face, wash rinse and dry once daily (may change to QOD if drying) 08/19/19 22 022 Inactive (%covered by insurance) #60ml refill 11 dx: acne Lyrica 50 mg capsule RxNorm: 976460 Take 1 Capsule(s) Oral QAM every morning Take 1 capsule by mouth once daily 08/19/19 22 022 Inactive benzoyl peroxide 10 % topical cleanser RxNorm: 893841 Apply 1 Application Topical QD apply to face, wash rinse and dry once daily (may change to QOD if drying) 08/19/19 22 022 Inactive (%covered by insurance) #60ml refill 11 dx: acne Lyrica 100 mg capsule RxNorm: 653227 Take 1 Capsule(s) Oral QHS every night at bedtime Take 1 capsule by mouth once daily at bedtime 08/19/19 22 022 Inactive Lyrica 100 mg capsule RxNorm: 971006 Take 1 Capsule(s) Oral QHS every night at bedtime Take 1 capsule by mouth once daily at bedtime 08/16/19 22 022 Inactive Lyrica 50 mg capsule RxNorm: 995929 Take 1 Capsule(s) Oral QAM every morning Take 1 capsule by mouth once daily 08/16/19 22 022 Inactive Levemir FlexTouch U-100 Insulin 100 unit/mL (3 mL) subcutaneous pen RxNorm: 472847 Inject 86 Unit(s) Subcutaneous BID 08/05/19 22 022 Inactive d/c 83units BID Lyrica 100 mg capsule RxNorm: 986760 Take 1 Capsule(s) Oral QHS every night at bedtime Take 1 capsule by mouth once daily at bedtime 07/14/19 22 022 Inactive Lyrica 50 mg capsule RxNorm: 280196 Take 1 Capsule(s) Oral QAM every morning Take 1 capsule by mouth once daily 07/14/19 22 022 Inactive Levemir FlexTouch U-100 Insulin 100 unit/mL (3 mL) subcutaneous pen RxNorm: 855935 Inject 83 Unit(s) Subcutaneous BID 07/08/19 22 [...] test strip hydralazine 50 mg tablet RxNorm: 500625 Take 1 Tablet(s) Oral QID 05/05/20 21 022 Inactive venlafaxine ER 225 mg tablet,extended release 24 hr RxNorm: 227708 Take 1 Tablet(s) Oral QD 05/05/20 21 021 Inactive venlafaxine ER 225 mg tablet,extended release 24 hr RxNorm: 694383 Take 1 Tablet(s) Oral QD 05/05/20 21 022 Inactive isosorbide mononitrate ER 30 mg tablet,extended release 24 hr RxNorm: 936487 Take 1 Tablet(s) Oral QD 05/05/20 21 024 Inactive hydralazine 50 mg tablet RxNorm: 980700 Take 1 Tablet(s) Oral QID 05/05/20 21 021 Inactive aspirin 81 mg tablet,delayed release RxNorm: 945910 Take 1 Tablet(s) Oral QD 03/31/20 21 022 Inactive Vitamin D2 1,250 mcg (50,000 unit) capsule RxNorm: 6967430 Take 1 Capsule(s) Oral QW once a week x 12 weeks 03/31/20 022 Inactive Vitamin D2 1,250 mcg (50,000 unit) capsule RxNorm: 3086908 Take 1 Capsule(s) Oral QW once a week 03/31/20 021 Inactive Zetia 10 mg tablet RxNorm: 378105 Take 1 Tablet(s) Oral QD 03/31/20 024 Inactive Zetia 10 mg tablet RxNorm: 352909 Take 1 Tablet(s) Oral QD 03/31/20 021 Inactive hydralazine 25 mg tablet RxNorm: 143654 Take 1 Tablet(s) Oral QID 03/31/20 021 Inactive hydralazine 25 mg tablet RxNorm: 627466 Take 1 Tablet(s) Oral QID 03/31/20 021 Inactive hydralazine 10 mg tablet RxNorm: 136899 Take 1 Tablet(s) Oral QID 03/03/20 021 Inactive cephalexin 500 mg tablet RxNorm: 510917 Take 1 Tablet(s) Oral QID 02/27/20 021 Inactive cephalexin 500 mg tablet RxNorm: 366240 Take 1 Tablet(s) Oral QID 02/27/20 021 Inactive lisinopril 40 mg tablet RxNorm: 209541 Take 1 Tablet(s) Oral QD 02/11/20 023 Inactive Eliquis 5 mg tablet RxNorm: 5632354 Take 1 Tablet(s) Oral BID 01/05/20 21 025 Inactive Eliquis 5 mg tablet RxNorm: 4046704 Take 2 Tablet(s) Oral QD 01/01/20 21 021 Inactive Lyrica 50 mg capsule RxNorm: 865937 Take 1 Capsule(s) Oral QAM every morning 12/24/19 21 021 Inactive Lyrica 100 mg capsule RxNorm: 376280 Take 1 Capsule(s) Oral QHS every night at bedtime 12/24/19 21 021 Inactive clotrimazole 1 % topical cream RxNorm: 015725 Apply to right foot and toes Topical BID 12/04/19 21 023 Inactive metoprolol succinate ER 200 mg tablet,extended release 24 hr RxNorm: 655037 Take 1 Tablet(s) Oral QD 12/04/19 023 Inactive ciprofloxacin 500 mg tablet RxNorm: 765049 Take 1 Tablet(s) Oral QD 11/30/19 21 021 Inactive DX ofloxacin otic drops Accu-Chek Guide test strips RxNorm: USE 1 TO CHECK GLUCOSE 4 TIMES DAILY AND NEEDED 11/15/19 21 023 Inactive Blood Glucose Test strips RxNorm: Use 1 Test Strip QID at PRN 11/05/19 21 023 Inactive E11.42 lisinopril 30 mg tablet RxNorm: 896670 Take 1 Tablet(s) Oral QD 10/30/19 021 Inactive lisinopril 20 mg tablet RxNorm: 511096 Take 1 Tablet(s) Oral QD 10/23/19 21 021 Inactive lisinopril 20 mg tablet RxNorm: 549055 Take 1 Tablet(s) Oral QD 10/23/19 021 Inactive lisinopril 10 mg tablet RxNorm: 049339 Take 1 Tablet(s) Oral QD 10/02/19 021 Inactive icosapent ethyl 1 gram capsule RxNorm: 9098525 Take 2 Capsule(s) (2 gm) Oral BID with meals 09/12/19 024 Inactive Okay to dispense one 2gm tab if you have that available. icosapent ethyl 1 gram capsule RxNorm: 6473733 Take 2 Capsule(s) Oral BID 09/12/19 21 021 Inactive Okay to dispense one 2gm tab if you have that available. amlodipine 10 mg tablet RxNorm: 017035 Take 1 Tablet(s) Oral QD 09/04/19 21 021 Inactive aspirin 81 mg tablet,delayed release RxNorm: 033102 Take 1 Tablet(s) Oral QD 09/04/19 21 021 Inactive Levemir FlexTouch U-100 Insulin 100 unit/mL (3 mL) subcutaneous pen RxNorm: 587148 Inject 150 Unit(s) Subcutaneous BID 09/04/19 21 022 Inactive venlafaxine ER 150 mg tablet,extended release 24 hr RxNorm: 277019 Take 1 Tablet(s) Oral QD 09/04/19 21 021 Inactive clotrimazole-betame thasone 1 %-0.05 % topical cream RxNorm: 980672 Apply to rash on red area on left abdomen/chest Topical BID 08/10/19 21 021 Inactive amlodipine 5 mg tablet RxNorm: 473245 Take 1 Tablet(s) Oral QD 07/31/19 Inactive cephalexin 500 mg tablet RxNorm: 812688 Take 1 Tablet(s) Oral BID BID - Twice Daily 07/31/19 021 Inactive Start 08/01/20 pantoprazole 40 mg tablet,delayed release RxNorm: 384661 Take 1 Tablet(s) Oral QAM every morning 07/08/19 025 Inactive clopidogrel 75 mg tablet RxNorm: 113829 Take 1 Tablet(s) Oral QD 07/08/19 021 Inactive Blood Glucose Test strips RxNorm: Use 1 Test Strip QID at PRN 07/08/19 021 Inactive E11.42 senna 8.6 mg tablet RxNorm: 631170 Take 1 Tablet(s) Oral QD 07/08/19 025 Inactive Novolog Flexpen U-100 Insulin aspart 100 unit/mL (3 mL) subcutaneous RxNorm: 9932420 Administer per sliding scale Milliliter(s) Subcutaneous TID 151-200: 10 u; 201-250: 20 u; 251-300: 30 u; 301-350: 40 u; 351-400: 50 u. 07/08/19 022 Inactive lisinopril 5 mg tablet RxNorm: 724651 Take 1 Tablet(s) Oral QD 07/08/19 021 Inactive Novolog Flexpen U-100 Insulin aspart 100 unit/mL (3 mL) subcutaneous RxNorm: 5446474 Inject 85 Unit(s) Subcutaneous TID 07/08/19 21 022 Inactive pravastatin 80 mg tablet RxNorm: 868091 Take 1 Tablet(s) Oral QHS every night at bedtime 07/08/19 023 Inactive clotrimazole 1 % topical cream RxNorm: 035913 Apply to bilateral groin areas Topical BID 07/08/19 21 022 Inactive metoprolol succinate ER 200 mg tablet,extended release 24 hr RxNorm: 518404 Take 1 Tablet(s) Oral QD 07/08/19 21 021 Inactive Vitamin D3 25 mcg (1,000 unit) tablet RxNorm: 917632 Take 1 Tablet(s) Oral QD 07/08/19 021 Inactive isosorbide dinitrate 30 mg tablet RxNorm: 995953 Take 1 Tablet(s) Oral QD 07/08/19 021 Inactive carbamazepine 200 mg tablet RxNorm: 369707 Take 1 Tablet(s) Oral BID 07/08/19 025 Inactive Levemir FlexTouch U-100 Insulin 100 unit/mL (3 mL) subcutaneous pen RxNorm: 313230 Inject 140 Unit(s) Subcutaneous BID 07/08/19 021 Inactive torsemide 20 mg tablet RxNorm: 499328 Take 1 Tablet(s) Oral QD 07/08/19 023 Inactive venlafaxine 75 mg tablet RxNorm: 179107 Take 1 Tablet(s) Oral QD 07/08/19 021 Inactive acetaminophen 500 mg tablet RxNorm: 204251 Take 1 Tablet(s) Oral TID as needed for headache 06/18/19 021 Inactive acetaminophen 500 mg tablet RxNorm: 237893 Take 1 Tablet(s) Oral TID as needed for headache 06/18/19 021 Inactive Lyrica 100 mg capsule RxNorm: 241380 Take 1 Capsule(s) Oral QHS every night at bedtime 06/11/19 21 021 Inactive Lyrica 50 mg capsule RxNorm: 426547 Take 1 Capsule(s) Oral QAM every morning 06/10/19 21 021 Inactive hydrocortisone 2.5 % topical cream RxNorm: 396012 Apply to bilateral groin creases Topical BID 05/15/20 20 021 Inactive clotrimazole 1 % topical cream RxNorm: 318672 Apply to bilateral groin areas Topical BID 05/15/20 20 Inactive Lyrica 50 mg capsule RxNorm: 805258 Take 1 Capsule(s) Oral QAM every morning 05/14/20 20 Inactive Lyrica 100 mg capsule RxNorm: 407640 Take [...] Inactive Nystop 100,000 unit/gram topical powder RxNorm: 805486 Apply to abd folds, under breasts and L side of groin Topical BID x 14 days, then BID PRN 04/08/20 20 Inactive dx: yeast dermatitis Lyrica 100 mg capsule RxNorm: 896122 Take 1 Capsule(s) Oral QHS every night at bedtime 03/13/20 20 Inactive Lyrica 50 mg capsule RxNorm: 671013 Take 1 Capsule(s) Oral QAM every morning 03/13/20 20 Inactive ketoconazole 2 % shampoo RxNorm: 180201 Apply Topical two times a week with showers 03/11/20 20 024 Inactive cholecalciferol (vitamin D3) 50 mcg (2,000 unit) tablet RxNorm: 088768 Take 1 Tablet(s) Oral QD 03/11/20 20 021 Inactive Zetia 10 mg tablet RxNorm: 323808 Take 1 Tablet(s) Oral QD 03/07/20 20 021 Inactive Zetia 10 mg tablet RxNorm: 389653 Take 1 Tablet(s) Oral QD 03/07/20 Inactive Lyrica 50 mg capsule RxNorm: 633139 Take 1 Capsule(s) Oral QAM every morning 02/15/20 20 020 Inactive Lyrica 100 mg capsule RxNorm: 906661 Take 1 Capsule(s) Oral QHS every night at bedtime 02/15/20 Inactive Lyrica 100 mg capsule RxNorm: 508262 Take 1 Capsule(s) Oral QHS every night at bedtime 02/15/20 Inactive Lyrica 50 mg capsule RxNorm: 752446 Take 1 Capsule(s) Oral QAM every morning 02/15/20 Inactive loperamide 2 mg capsule RxNorm: 838160 Take 1 Capsule(s) Oral QID as needed 09/06/19 025 Inactive venlafaxine ER 75 mg capsule,extended release 24 hr RxNorm: 768711 Take 3 Capsule(s) Oral QD 06/12/19 023 Inactive polyethylene glycol 3350 17 gram/dose oral powder RxNorm: 202530 Take 17=1 capful Gram(s) Oral BID as needed mix with 4-8oz of liquid 06/12/19 22 024 Inactive icosapent ethyl 1 gram capsule RxNorm: 4703043 Take 2 Capsule(s) (2 gm) Oral BID with meals 10/07/19 023 Inactive Okay to dispense one 2gm tab if you have that available. Levemir FlexTouch U-100 Insulin 100 unit/mL (3 mL) subcutaneous pen RxNorm: 813328 Inject 80 Unit(s) Subcutaneous BID 07/14/19 23 023 Inactive metoprolol succinate ER 200 mg tablet,extended release 24 hr RxNorm: 138319 Take 1 Tablet(s) Oral QD 08/12/19 025 Inactive hydralazine 50 mg tablet RxNorm: 390065 Take 1 Tablet(s) Oral QID 08/12/19 23 025 Inactive Soft Touch Lancets RxNorm: miscellaneous 03/04/20 24 025 Inactive Novolog Flexpen U-100 Insulin aspart 100 unit/mL (3 mL) subcutaneous RxNorm: 2519952 Insert 30 Unit(s) Subcutaneous TID with meals [...] Planned Activity Notes Codes Status Date Referral: [facility] [address] [id number] [place] Referral Appointment Scheduled 10/20/2024 Referral: [facility]/Endocrinology WPtel: [address] [facility] [address] [id number] [place] Referral No Records Received 07/10/2024 Referral: [facility] WPtel: [address] [id number] [place] Referral Records Received 09/21/2022 Referral: [facility] WPtel: [address] [facility] [address] [id number] [place] Referral Completed 05/28/2021 Referral: General Cardiology [...] a hospitalization 05/2021 he moved to the [facility] to have closer nursing attention. Sister Jyotsna involved in his care cell# [phone] Guardian: Giulia (tapan met in person 09/01/21), now has Lexii (same group as giulia)AWV 9.. Lab Schedule: Mar-/September*September (CBC with diff, CMP, [...] appointment 05.26.2024 with Jessa Webster MD at [facility]. Start Pioglitazone 15 mg QD. Stop Basaglar insulin. Increase Ozempic 2 mg once wkly. Continue Humalin R U-500 100 units with meals TID. FOLLOW UP 2 MONTHS. If BG >400 add 50 units to next scheduled dose of Humalin R U 500 insulin 06/12/2024
--- OUTSIDE RECORDS SUMMARY | 2024-10-19 16:53 | XMS_ITS | Clinical Summary ---
Author Organization [facility] Address [address] [place] [address] Care Team Providers Care Account Manager Relief Name Role Phone Alan Lopez MD Unavailable [phone] Pcp, No Primary Care Provider Unavailabl e Jessa Webster MD Unavailable [phone] Allergies Active Allergy Reactions Criticality Noted Date Comments Lisinopril Hyperkalemia 01/29/2012 Metformin Chest Pain 12/23/2015 Back pain, arm pain Medications clotrimazole (LOTRIMIN) 1 % creamIndications:T inea pedis of both feet Apply to feet in am daily and in evening as able 113 Tube 1 12/13/19 16 Active polyethylene glycol (MIRALAX) 17 g powder for solutionIndication s:Constipation Take 17 g by mouth once daily. 30 Packet 4 10/08/19 17 Active acetaminophen (ACETAMINOPHEN PAIN RELIEF) 500 mg tabletIndications: DISH (diffuse idiopathic skeletal hyperostosis) Take 1 tablet by mouth every 6 hours if needed. Takes 1 at noon, 2 in evening and 1 at bedtime. Max acetaminophen dose: 4000mg in 24 hrs. 360 tablet 2 03/18/20 17 Active sennosides (SENNA) 8.6 mg tabletIndications: Chronic constipation 1-2 tablets daily to maintain daily BM 180 tablet 2 10/07/19 18 Active aspirin (ECOTRIN) 81 mg enteric coated tabletIndications: Hypercholesterolem ia,HTN (hypertension) Take 1 tablet by mouth once daily with a meal. 90 tablet 2 11/04/19 18 Active Garlic tablet Take 1 tablet by mouth. 0 11/06/19 18 Active medication order composerIndication s:TASHI (obstructive sleep apnea) CPAP- set pressure at 17 cm/H2O New CPAP supplies: Humidifier Chamber x1, mask with cushion x1, Tubing (heated if desired) x1, Headgear x1, Disposable filters (reusable and disposable) X1; 1 unit 6 02/11/20 18 Active CPAPIndications:OS A (obstructive sleep apnea) CPAP machine for home use at pressure: 15 cm/h2O , Heated humidifier x 1, Humidifier chamber x 1, 1 unit 11 05/19/19 19 Active nitroglycerin (NITROSTAT) 0.4 mg sublingual tabletIndications: Chest pain in adult Place 1 tablet under the tongue every 5 minutes if needed for Chest Pain. 1 Bottle 08/03/19 19 Active Insulin Syringes, Disposable, 1 mLIndications:Othe r diabetic neurological complication associated with type 2 diabetes mellitus (HC) For administering insulin at home. E11.22 . Please give U-500 insulin syringes 1 box 3 08/25/19 Active cetirizine (ZYRTEC) 10 mg tabletIndications: Environmental allergies Take 1 tablet by mouth once daily. 90 tablet 3 10/06/19 19 Active insulin syringe-needle u-100 (BD INSULIN SYRINGE ULTRA-FINE) 1 mL 31 gauge x 5/16Indications:In sulin dependent diabetes mellitus FOR ADMINISTERING INSULIN AT HOME. 300 Each 3 11/03/19 19 Active medication order composerIndication s:Chronic edema Compression stockings, size large, full calf, level 20/30 mmhg 2 Package 11/04/19 19 Active compr.stocking,kne e,long,large (COMP STOCKING,KNEE,LONG ,LARGE)Indications :Insulin dependent diabetes mellitus,Diabetic polyneuropathy associated with type 2 diabetes mellitus (HC),Chronic edema JOBST #[id number] LRG FULL CALF KNEE BLACK 20-30 COMPRESSION 2 Package 11/27/19 19 Active lancets (TRUEPLUS LANCETS) 30 gauge miscIndications:Ty pe 2 diabetes mellitus with stage 3 chronic kidney disease, with long-term current use of insulin (HC),Insulin-requi ring or dependent type II diabetes mellitus (HC) As directed. Dispense lancets covered by insurance. E11.9 IDDM type II - Test 4-5 times/day 500 Each 3 12/14/19 19 Active metoprolol succinate SR (TOPROL XL) 200 mg Sustained-Release tabletIndications: Hypertension, unspecified type TAKE 1 TABLET BY MOUTH ONCE DAILY. 90 tablet 3 12/28/19 19 Active pravastatin (PRAVACHOL) 80 mg tabletIndications: High triglycerides Take 1 tablet by mouth at bedtime. 90 tablet 3 03/13/20 19 Active amLODIPine (NORVASC) 5 mg tablet Take 1 tablet by mouth once daily. 0 02/08/20 20 Active carBAMazepine (TEGRETOL) 200 mg tabletIndications: Convulsions, unspecified convulsion type (HC) Take 1 tablet by mouth 2 times daily. 360 tablet 3 02/08/20 20 Active clopidogreL (PLAVIX) 75 mg tablet Take 1 tablet by mouth every morning. 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 02/08/20 20 Active lisinopriL (PRINIVIL; ZESTRIL) 5 mg tablet Take 1 tablet by mouth once daily. 0 02/08/20 20 Active pantoprazole (PROTONIX) 40 mg delayed-release tablet Take 1 tablet by mouth once daily. 0 02/08/20 20 Active torsemide (DEMADEX) 20 mg tabletIndications: Edema, unspecified type Take 1 tablet by mouth once daily. 720 tablet 3 02/08/20 20 Active venlafaxine (EFFEXOR XR) 75 mg cp24 Extended-Release capsuleIndications :Depression, unspecified depression type,Hereditary and idiopathic peripheral neuropathy Take 1 capsule by mouth once daily. 02/08/20 20 Active blood-glucose meterIndications:D iabetes mellitus type 2, uncontrolled, with complications by Not Applicable route. Dispense meter, test strips, lancets covered by pt ins. E11.9 IDDM type II - Test 4 times/day. Reason: High A1C 1 Device 02/08/20 20 Active pregabalin (LYRICA) 50 mg capsuleIndications :Neuropathy 1 cap in the morning and two caps at bedtime 270 capsule 3 02/15/20 20 Active blood sugar diagnostic (Blood Glucose Test) stripIndications:O ther diabetic neurological complication associated with type 2 diabetes mellitus (HC),Diabetes 1.5, managed as type 1 (HC) Dispense brand covered by pt ins. DX DM:E13.9 pt tests 4 x daily. 400 Each 3 03/27/20 21 Active albuterol (PROVENTIL) 2 mg tablet Take 2 mg by mouth. Active albuterol HFA (PRO-AIR; VENTOLIN; PROVENTIL) 90 mcg/actuation inhaler 04/08/20 22 Active albuterol HFA (PRO-AIR; VENTOLIN; PROVENTIL) 90 mcg/actuation inhaler Every 4 Hours as needed Active allopurinoL (ZYLOPRIM) 300 mg tablet Daily Active allopurinoL (ZYLOPRIM) 100 mg tablet Daily Active amoxicillin-clavul anate 875-125 mg tablet (AUGMENTIN) Twice Daily For 7 Days 07/24/19 21 Active apixaban (ELIQUIS) tablet in a dose pack .as Direc 12/27/19 21 Active Eliquis 5 mg tablet 06/26/19 23 Active ARIPiprazole (ABILIFY) 15 mg tablet 06/27/19 23 Active benzoyl peroxide 10% (BENZAC-W WASH) 10 % external wash 08/19/19 22 Active capsaicin (ZOSTRIX) 0.025 % cream Three Times A Day as needed Active carvediloL (COREG) 25 mg tablet Take 50 mg by mouth. 05/26/19 23 Active carvediloL (COREG) 25 mg tablet 06/27/19 23 Active cephalexin (KEFLEX) 500 mg capsule Four Times Daily 05/17/19 22 Active cholecalciferol (VITAMIN D3) 1,000 unit tablet Take 1,000 units by mouth. Active diphenhydrAMINE (BENADRYL) 50 mg capsule Take 50 mg by mouth. Active Banophen 50 mg capsule 05/20/19 23 Active ergocalciferol (VITAMIN D2; DRISDOL) 50,000 unit capsule 3 Times Weekly Ac tive insulin NPH human isophane (HUMULIN N PEN SUBQ) Inject 85 units subcutaneous. Pt.got it this morning. Active ezetimibe-atorvast atin 10-10 mg tab Daily 03/07/20 22 Active hydrALAZINE (APRESOLINE TABLET) 50 mg tablet four times daily 03/07/20 Active spironolactone (ALDACTONE) 50 mg tablet Twice A Day Active pioglitazone (ACTOS) 15 mg tabletIndications: Type 2 diabetes mellitus with diabetic nephropathy, with long-term current use of insulin (HC) Take 1 Tablet (15 mg) by mouth once daily. 30 Tablet 2 05/30/19 25 Active semaglutide (Ozempic) 2 mg/dose (8 mg/3 mL) subcutaneous penIndications:Typ e 2 diabetes mellitus with diabetic nephropathy, with long-term current use of insulin (HC) Inject 2 mg subcutaneous once weekly. 3 Pen 3 05/30/19 25 Active insulin U-500 syringe-needle 1/2 mL 31 gauge x 15/64 syrgIndications:Ty pe 2 diabetes mellitus with diabetic nephropathy, with long-term current use of insulin (HC) As directed. Use 3 daily 300 Each 3 05/30/19 25 Active Humulin R 500 unit/mL injectionIndicatio ns:Type 2 diabetes mellitus with diabetic nephropathy, with long-term current use of insulin (HC) Inject SC Humulin U500 insulin 140 with breakfast, 120 units with lunch and 140 units with supper, slowly titrate to TDD 400units 24 mL 3 09/05/19 25 Active Insulin Safety [place] (Disp) (novofine [employer]) 30 gauge x 13Indications:Di abetes 1.5, managed as type 2 (HC) For administering insulin at home. Pt uses 10 x diakly 300 Each 3 09/05/19 25 Active Active Problems Problem Noted Date Diagnosed [...] 04/26/2012 [facility] scheduled [facility] am and no showed. RN Store Administrator, Juanita Yoo, notified and she will attempt [...] No, referral made to Advance Care Plan Wardrobe Supervisor. Patient has identified Specific Treatment Preferences: No Sophia Méndez RN .................... 07/06/2011 2:30 PM] Specific limits to treatment preferences NOT identified: ASSUME FULL TREATMENT. Assessment & Plan (05/25/2012 12:51 PM BIODIESEL PRODUCT MANAGER): Advance Care Planning: Disease-specific Session Leonid Leahy is a [facility] [place] patient. His PCP is Leandra Limon at [facility]. Advance care planning discussions were completed with Leonid. He identified his sister, Brittany Suggs, as his healthcare agent. Brittany was not present for ACP session. Understanding of Illness and Disease [place]: Leonid identifies his medical condition as what [...] to live well: Daily visit to local [employer] for a pop and to visit and catch up in the news with locals. Leonid oebd with serious challenges in his life: Support of his sister, only a phone call away. Helps manage [facility] services. Leonid identifies the [...] and primary care provider. [employer] for [place] [employer] booklet was sent to Leonid and [...] is and stabilizing. Is followed by [facility] Implement Mechanic for needed services. Questions identified for his primary care provider: none Documents addressed during this advance care planning session: Health Care Directive completed and scanned into medical record. Statement of Treatment Preferences for advanced illness completed and scanned into the medical record. Recommendations/Plan: Leonid to review Advance Care Plan with Leonid's healthcare agent. Food And Drug Inspector will be contacting Leonid's [facility] to explain services rendered, Leonid would benefit from: Home Care and/or Hospice when / if appropriate. [facility] services involved, [facility] supports coordination of medical asistance. Care Management- currenlty enrolled in Medical Home. Care Navigation Help Desk- other needed resources. Care Navigation, Hospice Care and Home Care brochure(s) were given to Leonid and/or his healthcare agent. Advance Care Planning recommendations and Leonid's concerns and questions were cc e d to his primary provider. Interviewer: Khadijah Mcneal RN 05/24/2012 Anemia, unspecified 04/06/2011 Unspecified hereditary and idiopathic peripheral neuropathy 03/02/2011 Overview (03/02/2011): Confirmed on upper extremity EMG Essential hypertriglyceridemia 08/28/2010 Vitamin D deficiency 08/28/2010 Learning disability 08/28/2010 Overview (08/28/2010): Spelling, special education in school Metabolic syndrome 03/17/2009 Morbid obesity with BMI of 60.0-69.9, adult 110 05/2008 Dysthymia 03/17/2009 Subjective tinnitus 11/09/2008 Sensorineural [...] 2:27 PM Sophia Méndez RN RN [facility] - [facility] [phone] Vitamin D deficiency 01/06/2011 011 Neuropathy 09/25/2010 [...] Encounters Date Type Department Care Team Description 09/04/2024 10:30 AM CDT Telemedicine [facility] [id number] [place] [address] Jessa Webster MD Diabetes; Telehealth (No vitals taken) 09/04/2024 Travel 07/28/2024 Orders Only [facility] [id number] [place] [address] Jessa Webster MD <No scans attached> 07/24/2024 12:35 PM CDT Telemedicine [facility] [address] [place] [id number] Jessa Webster MD Telehealth (No vitals taken); Diabetes 07/24/2024 Telephone [facility] [address] [id number] Jessa Webster MD Medication Management (Humulin R 500 unit/mL injection) 07/24/2024 Travel from Last 3 Months Immunizations Immunization Administration Dates Next Due Hepatitis B (Adult) 02/16/2014,10/12/2013,2012 Influenza A (H1N1), Inactiva abbe (Age >=3 Years) 05/07/2009 Influenza, IIV3 (Age >=3 years) 03/14/20 13,02/08/2012,03/15/2009,2007 Influenza, IIV4 02/13/2019,,02/17/2017,2015,02/21/2015,02/16/2014 Influenza, IIV4 (=>6mos) MDV 03/03/2016 Pneumococcal Poly,23-Valent [...] at Not on file Legal Sex Male 5:24 AM BIODIESEL PRODUCT MANAGER Gender Identity Not on file Sexual Orientation Not on file Obstetrics History Last Filed Vital Signs Vital Sign Reading Time Taken Comments Blood Pressure 130/50 05/26/2024 4:05 PM BIODIESEL PRODUCT MANAGER Pulse 71 05/26/2024 4:05 PM BIODIESEL PRODUCT MANAGER Temperature 36 C (96.8 F) 08/19/2022 1:41 PM CDT Respiratory Rate 16 08/19/2022 2:23 PM CDT Oxygen Saturation 92% 05/26/2024 4:05 PM BIODIESEL PRODUCT MANAGER Inhaled Oxygen Concentration - - Weight 177.8 kg (392 lb) 05/26/2024 4:05 PM BIODIESEL PRODUCT MANAGER Height 167.6 cm (5' 6) 07/14/2022 6:10 PM BIODIESEL PRODUCT MANAGER Body Mass Index 63.27 07/14/2022 6:10 PM BIODIESEL PRODUCT MANAGER Plan of Treatment Upcoming Encounters Date Type Department Care Team (Late st Contact Info) Description 11/10/2024 8:50 AM CDT Telemedicine [facility] [address] [address] [place] [address] [place] [address] Health Maintenance Due Date Last Done Comments HIV for age 15-65 09/13/1974 Hepatitis C screening for ag e 18-79 09/13/1977 Colonoscopy through age 75 09/13/2004 Pneumococcal series for age 50+ (2 of 2 - PCV) 01/08/2006 01/08/2005 Zoster (shingles) series for age 50+ (1 of 2) 09/13/2009 Tetanus booster 05/07/2019 05/07/2009 RSV vaccine for adults or (1 - Risk 60-74 years 1-dose series) 2019 Depression screening for age 12+ 12/28/2019 12/27/2018, 08/24/2017, 08/23/2017, Additional history exists BMI (ht and wt on same day) for age 18+ 01/11/2020 01/10/2019, 12/27/2018, 09/13/2018, Additional history exists Lipids for age 45-75 03/13/2024 03/13/2019, 04/25/2018, 04/25/2018, Additional history exists COVID-19 vaccine series ( season) 2024 04/17/2024, 06/02/2023, 04/03/2022, Additional history exists Influenza Vaccine (Season Ended) 2025 02/13/2019, 02/21/2018, 02/17/2017, Additional history exists Tdap Completed 05/07/2009 Hepatitis B series for 19+ Completed 02/16, 10/12/2013, 03/14/2013 Goals Goal Patient Goal Type Associated Problems [...] directed Diet On track( 12:28 PM CDT) [employer] Implanted Type Area Airline Captain Device Identifier Shelf Expiration Date Model / Serial / Lot Iol Dunn +20 Tecnis Zcb00 - [id number] Implanted:Qty: 1 on 07/15/2022 by Tanner Fuentes MD at [facility] Left: Eye [employer] 06/24/2025 ZCB00 20.0 / [id number] / Iol Dunn +20 Tecnis Zcb00 - [id number] Implanted:Qty: 1 on 08/19/2022 by Tanner Fuentes MD at [facility] Right: Eye [employer] 06/24/2025 ZCB00 20.0 / [id number] / Procedures Procedure Name Priority Date/Time Associated Diagnosis Comments LIPID PANEL Routine 03/13/2019 2:31 PM CDT Essential hypertriglyceridemia from Last 3 Months or Most Recently Relevant to Health Maintenance Results * (ABNORMAL) LIPID PANEL (03/13/2019 2:31 PM CDT) CHOLESTEROL,TOTAL 193 100 - 199 mg/dL 03/13/2019 9:25 PM CDT [facility] TRIGLYCERIDES 715(H) <150 mg/dL 03/13/2019 9:25 PM CDT [facility] HDL CHOLESTEROL 29(L) >40 mg/dL 9 9:25 PM CDT [facility] NON-HDL CHOLESTEROL 164(H) <145 mg/dl 03/13/2019 9:25 PM CDT [facility] CHOL/HDL RATIO 6.66(H) <4.50 03/13/2019 9:25 PM CDT [facility] LDL CHOLESTEROL 9 9:25 PM CDT [facility] Comment:Invalid LDL when Tri g >400. PROVIDER ORDERED STATUS RANDOM 03/13/2019 9:25 PM CDT [facility] Blood BLOOD SPECIMEN / Unknown Venipuncture / Unknown 03/13/2019 2:31 PM CDT 03/13/2019 2:31 PM CDT us Suellen Sosa MD CHEMISTRY Final Resul t [facility] [address] [place] [address], [place] from Last 3 Months or Most Recently Relevant to Health Maintenance Insurance MEDICAID MEDICARE [place] ONLY MEDICARE PART B HB ONLY MEDICARE PART A HB ONLY Advance Directives Documents on File Type Date Recorded Patient Swager Operator Expl anation POLST 09/26/2014 3:45 PM JUAN ERNANDEZ, 09/24/2014 Healthcare Directive 06/02/2012 3:51 [...] 9:30 PM 03/19/2009 6:17 PM Care Teams Account Manager Relief Relationship Specialty Start Date End Date Pcp, No . PCP - General 07/15/22 Alan Lopez MD Internal Medicine Internal Medicine 11/20/10 [place] [address] [place] [address] Endocrinology Endocrinology 05/26/24
--- OUTSIDE RECORDS SUMMARY | 2024-10-19 16:53 | XMS_ITS | Clinical Summary ---
Author Organization [place] Address [address] [facility] [place] [address] Care Team Providers Care Supervising Librarian Name Role Phone Services, [facility] Physician Primary Care Provi sadia Prince Tobar MD Unavailable Unava ilable Matilde PérezC Unavailable [phone] Torie Jimenez APRN BIO MEDICAL TECHNICIAN [facility] Reinaldo Beltran PA-C Unavailable [phone] Torie Jimenez APRN BIO MEDICAL TECHNICIAN [facility] ble Allergies Active Allergy Reactions Criticality Noted Date [...] daily Active cholecalciferol (VITAMIN D3) 1250 mcg (62694 units) capsule Take 1,250 mcg by mouth every 7 days on Wednesdays. Active venlafaxine (EFFEXOR-XR) 75 MG 24 hr capsule Take 225 mg by mouth daily Active hydrALAZINE (APRESOLINE) 50 MG tablet Take 50 mg by mouth 4 times daily Active polyethylene glycol (MIRALAX) 17 GM/Dose powder Take 17 g by mouth daily Active nystatin (MYCOSTATIN) 141061 UNIT/GM external powder Apply topically 2 times [...] 2 times daily. 18 mL 03/08/20 24 Active insulin reg HIGH CONC (HUMULIN R U-500 KWIKPEN) 500 UNIT/ML PEN soln Inject 100 Units subcutaneously 3 times daily (before meals). 18 mL 03/08/20 24 Active Active Problems Problem Noted Date Diagnosed Date Elevated troponin 12/16/2022 Chest pain, unspecified type 12/16/2022 Diabetes mellitus, type 2 05/26/2022 Morbid obesity 05/26/2022 Abdominal wall cellulitis 05/17/2021 Sepsis, due to unspecified o rganism, unspecified whether acute organ dysfunction present 05/17/2021 Persistent headaches 03/01/2013 Epilepsy 03/01/2013 Immunizations Immunization Administration Dates Next Due COVID-19 MONOVALENT 12+ (Pfizer) 06/25/2020,05/17 W2d7-21 Novel Flu 05/07/2009 Hepatitis B, Adult (Energix-B/Recombivax HB) 02/16/2014,10/12/2013,03/14/2013 Influenza (H1N1) 05/07/2009 Influenza (IIV3) PF 05/07/2020, 3,02/08/2012,2008,05/18/2007 Influenza Vaccine 18-64 (Flublok) 05/29/2021 Influenza Vaccine >6 months,quad, PF ,02/13/2019,02/21/2018,2016,03/02/2016,02/21/2015,02/16/2014 Influenza Vaccine, 6+MO IM (QUADRIVALENT W/PRESERVATIVES) 03/03/2016 Pneumococcal 23 valent 01/08/2005 TDAP (Adacel,Boostrix) 02/12/2022,05/07/2009 Zoster recombinant adjuvante d (Shingrix) 03/24/2022,11/04/2021 Social History Tobacco Use Types Packs/Day Years Used Date Smoking Tobacco: Never Smokeless Tobacco: Never Tobacco Cessation:Counseling Given: Not Answered Alcohol Use Standard Drinks/Week Comments Not Currently 0 (1 standard drink = 0.6 oz pur e alcohol) PHQ-2 Answer Date Recorded PHQ-2 Score 1 06/19/2024 Adolescent Education Answer Date Record ed Getting School Help Needed Not on file 02/13 Sex and Gender Information Value Date Recorded Sex Assigned at Not on file Legal Sex Male 3:35 AM VENTILATING EQUIPMENT INSTALLER Gender Identity Not on file Sexual Orientation Choose not to disclose 2021 8:14 AM VENTILATING EQUIPMENT INSTALLER Last Filed Vital Signs Vital Sign Reading Time Taken Comments Blood Pressure 118/75 06/19/2024 12:32 PM VENTILATING EQUIPMENT INSTALLER Pulse 73 06/19/2024 12:32 PM VENTILATING EQUIPMENT INSTALLER Temperature 36.6 C (97.8 F) 03/08/2024 7:44 AM CDT Respiratory Rate 16 03/07/2024 5:07 PM CDT Oxygen Saturation 95% 06/19/2024 12:32 PM VENTILATING EQUIPMENT INSTALLER Inhaled Oxygen Concentration - - Weight 176.9 kg (390 lb) 06/19/2024 12:32 PM VENTILATING EQUIPMENT INSTALLER Height 170.2 cm (5' 7) 06/19/2024 12:32 PM VENTILATING EQUIPMENT INSTALLER Body Mass Index 61.08 06/19/2024 12:32 PM VENTILATING EQUIPMENT INSTALLER Plan of Treatment Health Maintenance Due Date Last Done Comments ANNUAL REVIEW OF HM ORDERS 1959 CT COLONOGRAPHY 1959 DIABETIC FOOT EXAM 1959 EYE EXAM 1959 FIT 1959 FLEX SIG 1959 MICROALBUMIN 1959 sDNA (Cologuard) 1959 COLONOSCOPY 09/13/1969 COLORECTAL CANCER SCREENING 09/13/1969 HIV SCREENING 09/13/1974 HEPATITIS C SCREENING 09/13/1977 PNEUMOCOCCAL VACCINE 50+ YEARS (2 of 2 - PCV) 01/08/2006 01/08/2005 RSV VACCINE (1 - Risk 60-74 years 1-dose series) 2019 FALL RISK ASSESSMENT 09/13/2024 MEDICARE ANNUAL WELLNESS VISIT 09/13/2024 COVID-19 VACCINE ( season) 2024 04/17/2024, 06/02/2023, 04/03/2022, Additional history exists A1C 12/08/2024 09/08/2024, 09/16, 12/16/2022, Additional history exists LIPID 05/15/2025 05/15/2024 BMP 09/08/2025 09/08/2024, 04/18, 03/07/2024, Additional history exists ADVANCE CARE PLANNING 06/02/2026 06/02/2021 DTAP/TDAP/TD VACCINE (3 - Td or Tdap) 02/13/2032 02/12/2022, 05/07/2009 ZOSTER VACCINE Completed 03/24/2022, 11/04/2021 INFLUENZA VACCINE Completed 04/17/2024, , 04/03/2022, Additional history exists PHQ-2 (once per calendar year) Completed 06/19/2024 HPV VACCINE Aged Out No longer eligi ble based on patient's age to complete this topic MENINGITIS VACCINE Aged Out No longer eligible based on patient's age to complete this topic Procedures Procedure Name Priority Date/Time Associated Diagnosis Comments HEMOGLOBIN A1C Routine 09/08/2024 11:35 AM CDT Type 2 diabetes mellitus with diabetic polyneuropathy (H) Hypokalemia 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) BASIC METABOLIC PANEL Routine 09/08/2024 11:35 AM CDT Type 2 diabetes mellitus with diabetic polyneuropathy (H) Hypokalemia 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) LIPID PROFILE Routine 05/15/2024 11:20 AM VENTILATING EQUIPMENT INSTALLER Type 2 diabetes mellitus with other specified complication (H) Hypokalemia 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 Blood BLOOD SPECIMEN / Unknown Client Draw / Unknown 09/08/2024 11:35 AM CDT 09/08/2024 12:16 PM CDT Harrison Munson NP LAB - BLOOD ORDERABLES Final Result LABORATORY [facility] [address] Lab (1st floor, no room number) [place] [address], [facility] * (ABNORMAL) Basic metabolic panel (09/08/2024 11:35 AM CDT) [facility] Sodium 141 135 - 145 mmol/L 09/08/2024 1:16 PM CDT LABORATORY Potassium 3.0(L) 3.4 - 5.3 mmol/L 09/08/2024 1:16 PM CDT LABORATORY Chloride 98 98 - 107 mmol/L 09/08/2024 1:16 PM CDT LABORATORY Carbon Dioxide (CO2) 32(H) 22 - 29 mmol/L 09/08/2024 1:16 PM CDT LABORATORY Anion Gap 11 7 - 15 mmol/L 09/08/2024 1:16 PM CDT LABORATORY Urea Nitrogen 21.0 8.0 - 23.0 mg/dL 09/08/2024 1:16 PM CDT [facility] Creatinine 1.00 0.67 - 1.17 mg/dL 09/08/2024 1:16 PM CDT [facility] GFR Estimate 84 >60 mL/min/1.7 3m2 09/08/2024 1:16 PM CDT [facility] Comment:eGFR calculated usin 2020 CKD-EPI equation. Calcium 9.0 8.8 - 10.4 mg/dL 09/08/2024 1:16 PM CDT [facility] Glucose 238(H) 70 - 99 mg/dL 09/08/2024 1:16 PM CDT [facility] Blood BLOOD SPECIMEN / Unknown Client Draw / Unknown 09/08/2024 11:35 AM CDT 09/08/2024 12:16 PM CDT Harrison Munson NP LAB - BLOOD ORDERABLES Final Result LABORATORY [facility] [address] Lab (1st floor, no room number) [place] [address] * (ABNORMAL) Lipid Profile (05/15/2024 11:20 AM VENTILATING EQUIPMENT INSTALLER) Cholesterol 116 <200 mg/dL 05/15/2024 6:03 PM VENTILATING EQUIPMENT INSTALLER [facility] Triglycerides 575(H) <150 mg/dL 05/15/2024 6:03 PM VENTILATING EQUIPMENT INSTALLER [facility] Direct Measure HDL 28(L) >=40 mg/dL 05/15/2024 6:03 PM VENTILATING EQUIPMENT INSTALLER [facility] LDL Cholesterol Calculated 05/15/2024 6:03 PM VENTILATING EQUIPMENT INSTALLER [facility] Comment:Cannot estimate LDL when triglyceride exceeds 400 mg/dL Non HDL Cholesterol 88 <130 mg/dL 05/15/2024 6:03 PM VENTILATING EQUIPMENT INSTALLER [facility] Patient Fasting > 8hrs? No 05/15/2024 6:03 PM VENTILATING EQUIPMENT INSTALLER [facility] Blood BLOOD SPECIMEN / Unknown Client Draw / Unknown 05/15/2024 11:20 AM VENTILATING EQUIPMENT INSTALLER 05/15/2024 12:53 PM VENTILATING EQUIPMENT INSTALLER Narrative [facility] - 05/15/2024 6:03 PM VENTILATING EQUIPMENT INSTALLER Cholesterol Desirable: < 200 mg/dL Borderline High: 200 - 239 mg/dL High: >= 240 mg/dL Triglycerides Normal: < 150 mg/dL Borderline High: 150 - 199 mg/dL High: 200-499 mg/dL Very High: >= 500 mg/dL Direct Measure HDL Female: >= 50 mg/dL Male: >= 40 mg/dL LDL Cholesterol Desirable: < 100 mg/dL Above Desirable: 100 - 129 mg/dL Borderline High: 130 - 159 mg/dL High: 160 - 189 mg/dL Very High: >= 190 mg/dL Non HDL Cholesterol Desirable: < 130 mg/dL Above Desirable: 130 - 159 mg/dL Borderline High: 160 - 189 mg/dL High: 190 - 219 mg/dL Very High: >= 220 mg/dL us Harrison Munson NP LAB - BLOOD ORDERABLES Final Result LABORATORY [facility] [place] [facility] [address] [facility] [address], [address] [place] [address], [facility] [address] Lab (1st floor, no room number) [place] [address], [facility] from Last 3 Months or Most Recently Relevant to Health [place] [id number] [place] Advance Directives For more information, please contact: [phone] Documents on File Type Date Recorded Patient Office Auditor Expl anation Advance Directives and Living Will [...] patie nt/ legal decision maker Care Teams Supervising Librarian Relationship Specialty Start Date End Date Services, [facility] Physician [phone] [address] PCP - General 05/22/21 Prince Tobar MD [address] [address] Cardiovascular Disease 03/26/22 Matilde Pérez PA-C [address] [place] [id number] Physician Manager Assurance Physician Manager Assurance - Surgical 12/30/23 Torie Jimenez APRN BIO MEDICAL TECHNICIAN [address] [place] [address] [phone] Nurse Practitioner Colon & Rectal 03/17/24 Reinaldo Beltran PA-C Emergency [facility] [address] [facility] [address] [place] [id number] Physician Manager Assurance Emergency Medicine 03/17/24 Toire Jimenez APRN BIO MEDICAL TECHNICIAN [address] [place] [address] [phone] Assigned Surgical Provider 07/09/24
[2024-10-19 16:59] VITALS: BP 127/65; PULSE 89; RESP 20; TEMP 37; O2SAT 94; BMI 61.1
[2024-10-19] MEDS: PENICILLIN VK 250 MG TABLET 500 MG PO (17:29)
[2024-10-19] MEDS: HYDROCODONE-ACETAMIN 5-325 MG 1 TAB PO (17:29)
[2024-10-19 17:41] LABS: Glucose, Point-of-Care* 148 mg/dl (60-115)
--- NOTE | 2024-10-19 17:55 | ED.GENADULT ---
HPI - General Adult General Date Seen: 10/19/24 Chief complaint: Jaw Injury/Pain Stated complaint: jaw/ear pain Time Seen by Provider: 10/19/24 17:11 History of Present Illness HPI narrative: This is a 64-year-old gentleman brought to the ER today by EMS. He is a resident of an assisted living in [place], [place]. He is brought in by EMS today because he is not able to drive and his assisted-living was not able to get him transport to a dentist's office. Report from paramedics is that he does have type 1 diabetes with marginal control. He has been experiencing pain in his right upper teeth and jaw for several days that got a lot worse today and is radiating from the right upper jaw all the way over to left jaw and sometimes into the right ear. They were concerned about dental infection. EMS did do an EKG in route out of an abundance of caution to make sure that his jaw pain was not some sort of referred cardiac pain and the report that the EKG was normal. History from the patient is that he does have bad teeth and broken teeth that have been like that for quite some time. He notes for few days he has been having some mild pain in the right upper jaw but today the pain is more severe and radiates into his right ear and sometimes all the way to the left side of his face. He has not noticed any swelling inside of his mouth. He had a little bit of bleeding from the gums a couple of days ago but no bleeding or drainage today. He has not had any fever. No swelling under the floor of his mouth. No swelling in his neck. No trouble swallowing. His blood sugar today was in the 150s. He notes that typically in the mornings his blood pressure might be over 200 but typically comes down to about the 150s in the afternoon. Per in the medical records that were sent along with the patient he has a history of insulin-dependent diabetes, morbid obesity, hypertension, GERD, sleep apnea, constipation, sensorineural hearing loss, major depression, gout, diabetic foot ulcers, status post amputation, seizures (which is white is not drive), and chronic kidney disease, hyperlipidemia. He is allergic to lisinopril and metformin. Related Data Home Medications ?Medication ?Instructions ?Recorded ?Confirmed amlodipine 10 mg tablet 10 mg PO DAILY 03/07/22 04/28/24 apixaban 5 mg tablet (Eliquis) 5 mg PO BID 03/07/22 04/28/24 aripiprazole 15 mg tablet 7.5 mg PO DAILY 03/07/22 04/28/24 aspirin 81 mg tablet,delayed 81 mg PO DAILY 03/07/22 04/28/24 release carbamazepine 200 mg tablet 200 mg PO BID 03/07/22 04/28/24 chlorthalidone 25 mg tablet 25 mg PO DAILY 03/07/22 04/28/24 ezetimibe 10 mg tablet 10 mg PO DAILY 03/07/22 04/28/24 hydralazine 50 mg tablet 50 mg PO QID 03/07/22 04/28/24 pantoprazole 40 mg tablet,delayed 40 mg PO DAILY 03/07/22 04/28/24 release polyethylene glycol 3350 17 17 g PO DAILY 03/07/22 04/28/24 gram/dose oral powder pregabalin 100 mg capsule 100 mg PO QAM 03/07/22 04/28/24 pregabalin 150 mg capsule 150 mg PO HS 03/07/22 04/28/24 torsemide 20 mg tablet 20 mg PO DAILY 03/07/22 04/28/24 venlafaxine 75 mg capsule,extended 225 mg PO DAILY 03/07/22 04/28/24 release 24 hr acetaminophen 500 mg tablet 500 mg PO Q6H 06/13/22 04/28/24 albuterol sulfate 90 mcg/actuation 1 inh inhalation Q4H PRN 06/13/22 04/28/24 aerosol inhaler bronchospasm diphenhydramine HCl 50 mg capsule 50 mg PO Q6H PRN itching 06/13/22 04/28/24 (Banophen) icosapent ethyl 1 gram capsule 2 g PO BID 06/13/22 04/28/24 (Vascepa) insulin regular hum U-500 conc 500 100 unit subcut TID 06/13/22 02/20/24 unit/mL(3 mL) subcut pen (Humulin R U-500 (Conc) Insulin Kwikpen) ketoconazole 2 % shampoo 1 applic topical Q3D 06/13/22 04/28/24 loperamide 2 mg capsule 2 mg PO Q6H PRN loose stool 06/13/22 02/21/24 nystatin 100,000 unit/gram topical 1 applic topical BID PRN 06/13/22 02/20/24 powder sennosides 8.6 mg tablet (senna) 8.6 mg PO DAILY 06/13/22 04/28/24 clotrimazole 1 % topical cream 1 applic topical BID 07/25/22 04/28/24 insulin glargine 100 unit/mL (3 30 unit subcut BID 12/27/23 04/28/24 mL) subcutaneous pen (Basaglar KwikPen U-100 Insulin) isosorbide mononitrate 60 mg 60 mg PO DAILY 12/27/23 04/28/24 tablet,extended release 24 hr metoprolol succinate 200 mg 200 mg PO DAILY 12/27/23 04/28/24 tablet,extended release 24 hr semaglutide 1 mg/dose (4 mg/3 mL) 1 mg subcut .weekly 12/27/23 04/28/24 subcutaneous pen injector (Ozempic) carvedilol 25 mg tablet 25 mg PO DAILY 02/20/24 04/28/24 potassium chloride 20 mEq 40 meq PO BID 02/20/24 04/28/24 tablet,extended release(part/cryst) rosuvastatin 40 mg tablet 40 mg PO HS 02/20/24 04/28/24 Previous Rx's ?Medication ?Instructions ?Recorded hydrocortisone 2.5 % topical cream 1 applic topical BID PRN #30 grams 09/14/22 ammonium lactate 12 % lotion 1 applic topical BID #225 grams 04/01/23 ondansetron 4 mg disintegrating 4 mg PO Q6H PRN nausea and 04/27/24 tablet vomiting #10 tabs diphenoxylate-atropine 2.5 1 tab PO DAILY PRN diarrhea 2 days 04/28/24 mg-0.025 mg tablet (Lomotil) #2 tabs hydrocodone 5 mg-acetaminophen 325 1 tab PO Q4-6H PRN pain #10 tabs 10/19/24 mg tablet penicillin V potassium 500 mg 500 mg PO QID #40 tabs 10/19/24 tablet Allergies Allergy/AdvReac Type Severity Reaction Status Date / Time lisinopril Allergy Mild Cough Verified 03/05/24 12:34 metformin AdvReac Verified 03/05/24 12:34 PFSH PFSH Medical History Anemia in chronic kidney disease (CKD) ?N18.9 - Chronic kidney disease, unspecified (ICD-10) ?D63.1 - Anemia in chronic kidney disease (ICD-10) Chronic kidney disease (CKD), stage IV (severe) ?N18.4 - Chronic kidney disease, stage 4 (severe) (ICD-10) DISH (diffuse idiopathic skeletal hyperostosis) ?M48.10 - Ankylosing hyperostosis [[place]], site unspecified (ICD-10) Edema ?R60.9 - Edema, unspecified (ICD-10) Neuropathy ?G62.9 - Polyneuropathy, unspecified (ICD-10) Learning disability ?F81.9 - Developmental disorder of scholastic skills, unspecified (ICD-10) Insomnia ?G47.00 - Insomnia, unspecified (ICD-10) Metabolic syndrome ?E88.810 - Metabolic syndrome (ICD-10) Sensorineural hearing loss (SNHL) of both ears ?H90.3 - Sensorineural hearing loss, bilateral (ICD-10) Tinnitus ?H93.19 - Tinnitus, unspecified ear (ICD-10) Hypercholesterolemia ?E78.00 - Pure hypercholesterolemia, unspecified (ICD-10) Insulin dependent diabetes mellitus Recurrent deep vein thrombosis (DVT) ?I82.409 - Acute embolism and thrombosis of unspecified deep veins of unspecified lower extremity (ICD-10) Hypertension ?I10 - Essential (primary) hypertension (ICD-10) Coronary artery disease ?I25.10 - Atherosclerotic heart disease of [place] coronary artery without angina pectoris (ICD-10) Hypertriglyceridemia ?E78.1 - Pure hyperglyceridemia (ICD-10) Epilepsy ?G40.909 - Epilepsy, unspecified, not intractable, without status epilepticus (ICD-10) TASHI on CPAP ?G47.33 - Obstructive sleep apnea (adult) (pediatric) (ICD-10) ?Z99.89 - Dependence on other enabling machines and devices (ICD-10) Tachypnea ?R06.82 - Tachypnea, not elsewhere classified (ICD-10) Fever ?R50.9 - Fever, unspecified (ICD-10) CKD (chronic kidney disease) ?N18.9 - Chronic kidney disease, unspecified (ICD-10) Gout ?M10.9 - Gout, unspecified (ICD-10) Major depressive disorder ?F32.9 - Major depressive disorder, single episode, unspecified (ICD-10) Type 2 diabetes mellitus ?E11.9 - Type 2 diabetes mellitus without complications (ICD-10) Obesity ?E66.9 - Obesity, unspecified (ICD-10) Surgical History History of cholecystectomy ?Z90.49 - Acquired absence of other specified parts of digestive tract (ICD-10) Social History Narrative: Lives in a senior living in [place], [place]. Sisters Brittany Suggs ([phone]) and Blanka Mcduffie ([phone]) listed as contacts and medical decision makers. Paperwork from senior living indicates Full Code status. What is your current living situation?: I presently have a place to live Problems where you live: no known problems Problems where you live details: none In the past 12 months, utilities in danger of being shut off: no In past 12 months, lack of transportation kept you from medical appts, meetings, work, or getting things needed for daily living: no In the past 12 mos, have been you worried that your food would run out before you had money to buy more?: never true In the past 12 mos, the food you bought just didn't last and you didn't have money to buy more?: never true Highest level of school completed/degree received: 12th grade, no diploma Smoking Status: Never smoker Do you use any of these nicotine containing products: None Second hand tobacco smoke exposure: No How often do you have a drink containing alcohol: never How often do you have six or more drinks on one occasion: Never AUDIT-C Alcohol total score: 0 Non-prescribed substance use: denies use Caffeine: No How often does anyone, including family, friends and others, physically hurt you: never How often does anyone, including family, friends and others, insult or talk down to you: never How often does anyone, including family, friends and others, threaten you with harm: never How often does anyone, including family, friends and others, scream or curse at you: never service: No Exam Narrative: Exam Narrative: Constitutional: Appears well-developed and over-nourished. Alert. Conversant. Non toxic. HENT: Head: Atraumatic. Nose: Nose normal. Mouth/Throat: Oral mucosa is clear and moist. no trismus. Tongue normal. Pharynx normal. Tonsils symmetric. No tonsillar enlargement, erythema, or exudate. He does have poor dentition. He has dental caries or possible dental fracture affecting his 1st and 2nd molar on the right maxilla. Third molar appears to be absent. On the left maxilla he does appear to have his 3rd molar present but broken off down to the gums. Second molar is absent and 1st molar has fillings and caries. I do not see any evidence for gingival erythema or swelling to suggest a gingival abscess. Soft palate is normal. Inner surface of his lips and buccal mucosa is normal. No submandibular swelling. No trismus. Airway patent. Phonation normal. Eyes: Conjunctivae normal. EOM normal. Pupils equal, round, and reactive to light. No scleral icterus. Neck: Normal range of motion. Neck supple. No tracheal deviation present. Cardiovascular: Normal rate, regular rhythm. No gallop. No friction rub. No murmur heard. Pulmonary/Chest: Effort normal. No stridor. No respiratory distress. No wheezes. No rales. No rhonchi . Musculoskeletal: RUE: Normal range of motion. No tenderness. No deformity LUE: Normal range of motion. No tenderness. No deformity RLE: Normal range of motion. No edema. No tenderness. No deformity LLE: Normal range of motion. No edema. No tenderness. No deformity Lymph: No cervical adenopathy. Neurological: Alert and oriented to person, place, and time. Normal strength. CN II-VII intact. No sensory deficit. GCS eye subscore is 4. GCS verbal subscore is 5. GCS motor subscore is 6. Normal coordination Skin: Skin is warm and dry. No rash noted. No pallor. Normal capillary refill. Psychiatric: Normal mood. Normal affect. Very polite. Const: Vital Signs, click to edit/add: Vital Signs - 24 hr 10/19/24 16:59 Temperature 98.6 F Pulse Rate [Pulse Oximeter] 89 Respiratory Rate 20 Blood Pressure [Ri ght Upper Arm] 127/65 Pulse Oximetry 94 Oxygen Delivery Me thod Room Air Course Vital Signs Vital signs: Initial Vital Signs Temperature 98.6 F 10/19/24 16:59 Temperature Source Temporal Artery Scan 10/19/24 16:59 Pulse Rate 89 10/19/24 16:59 Pulse Rhythm Regular 10/19/24 16:59 Respiratory Rate 20 10/19/24 16:59 Blood Pressure 127/65 10/19/24 16:59 Blood Pressure Mean 85 10/19/24 16:59 Blood Pressure Position Sitting 10/19/24 16:59 Pulse Oximetry 94 10/19/24 16:59 Oxygen Delivery Method Room Air 10/19/24 16:59 Vital Signs Temperature 98.6 F 10/19/24 16:59 Pulse Rate 89 10/19/24 16:59 Respiratory Rate 20 10/19/24 16:59 Blood Pressure 127/65 10/19/24 16:59 Pulse Oximetry 94 10/19/24 16:59 Oxygen Delivery Method Room Air 10/19/24 16:59 Temperature 98.6 F 10/19/24 16:59 Pulse Rate 89 10/19/24 16:59 Respiratory Rate 20 10/19/24 16:59 Blood Pressure 127/65 10/19/24 16:59 Pulse Oximetry 94 10/19/24 16:59 Oxygen Delivery Method Room Air 10/19/24 16:59 Medications Administered Medications: Discontinued Medications Generic Name Dose Route Start Last Admin Trade Name Freq PRN Reason Stop Dose Admin Hydrocodone Bitart/Acetaminophen 1 tab 10/19/24 17:11 10/19/24 17:29 Hydrocodone-Acetamin 5-325 Mg 1 Tab PO 10/19/24 17:12 1 tab ONCE ONE Administration Penicillin V Potassium 500 mg 10/19/24 17:12 10/19/24 17:29 Penicillin Vk 250 Mg Tablet PO 10/19/24 17:13 500 mg ONCE ONE Administration Medical Decision Making MDM Narrative Medical decision making narrative: This patient presents with a tooth ache radiating from his right upper jaw to the right ear and all the way to the left side of his face.. The differential diagnosis includes: cracked tooth syndrome, pulpitis, sub-apical abscess, amongst others. There is no abscess detected around the tooth amenable to incision and drainage. There is no evidence of buccinator/canine space infections, significant facial swelling, or Jose's angina. There are no posterior pharyngeal space infections detected. Suspect pulpitis. Treatment with NSAID, antibiotics. We will start him on oral antibiotics for potential pulpitis and involving dental infection. At this point he is safe for outpatient management. He will need careful monitoring and close follow-up with dentist because he does have poorly controlled type 2 diabetes with complications including previous foot ulcers and amputation. He says his blood sugar is up and down these days, often over 200 in the morning with typically in the 150s in the afternoon. Spot blood glucose check here in the ER is 148 . He is not toxic, febrile, and he has stable vital signs. At this point I do not see evidence for septic shock. Follow up with a dentist/tin plater in the coming days is indicated for further work up and treatment. Instructions for return to the ER were reviewed with the patient. Nurses also called to his legal guardian and his care facility to help make sure he is able to get the resources he needs in the outpatient setting. Lab Data Labs: Lab Results 10/19/24 Range/Units 17:40 POC Glucose 148 H (60-115) mg/dl Discharge Plan Discharge Clinical Impression: Pain, dental, Jaw pain Patient Disposition: Home, Self-Care Condition: Stable Instructions: Toothache (ED) Additional Instructions: As we discussed, right now we suspect that your pain is caused by an infection of the root in the tooth of 1 of the molars in your right upper jaw. We do not see any sign of a serious abscess at this point. Please start on the antibiotics today and continue them twice daily every day until you see your dentist. As we discussed, it is very important for you to see your dentist within the next 3-5 days. If you notice worsening symptoms, especially if you have worsening swelling of her jaw, swelling underneath the floor of your mouth, swelling of your face, fever, trouble swallowing, or trouble breathing, please return to the ER right away to be rechecked. Please continue on the antibiotic every day until you see your dentist. Use the prescription pain meds if needed. Be careful because the prescription pain killer, [place], can cause dizziness, drowsiness, constipation, and can be addictive. Prescriptions: New hydrocodone-acetaminophen 5-325 mg tablet 1 tab PO Q4-6H PRN (Reason: pain) Qty: 10 0RF penicillin V potassium 500 mg tablet 500 mg PO QID Qty: 40 0RF No Action amlodipine 10 mg tablet 10 mg PO DAILY aripiprazole 15 mg tablet 7.5 mg PO DAILY Eliquis 5 mg tablet 5 mg PO BID aspirin 81 mg tablet,delayed release (DR/EC) 81 mg PO DAILY venlafaxine 75 mg capsule,extended release 24hr 225 mg PO DAILY torsemide 20 mg tablet 20 mg PO DAILY chlorthalidone 25 mg tablet 25 mg PO DAILY carbamazepine 200 mg tablet 200 mg PO BID pantoprazole 40 mg tablet,delayed release (DR/EC) 40 mg PO DAILY hydralazine 50 mg tablet 50 mg PO QID Patient Comments: 08,12,16,20 ezetimibe 10 mg tablet 10 mg PO DAILY pregabalin 100 mg capsule 100 mg PO QAM pregabalin 150 mg capsule 150 mg PO HS polyethylene glycol 3350 17 gram/dose powder 17 g PO DAILY Rx Instructions: AND TWICE DAILY NEEDED sennosides [senna] 8.6 mg tablet 8.6 mg PO DAILY ketoconazole 2 % shampoo 1 applic TOPICAL Q3D diphenhydramine HCl [Banophen] 50 mg capsule 50 mg PO Q6H PRN (Reason: itching) loperamide 2 mg capsule 2 mg PO Q6H PRN (Reason: loose stool) acetaminophen 500 mg tablet 500 mg PO Q6H nystatin 100,000 unit/gram powder 1 applic TOPICAL BID PRN albuterol sulfate 90 mcg/actuation HFA aerosol inhaler 1 inh INHALATION Q4H PRN (Reason: bronchospasm) icosapent ethyl [Vascepa] 1 gram capsule 2 g PO BID Humulin R U-500 (Conc) Kwikpen 500 unit/mL (3 mL) insulin pen 100 unit SUBCUT TID clotrimazole 1 % cream 1 applic topical BID Rx Instructions: GROIN,PERIAREA AND ABDOMIN hydrocortisone 2.5 % cream 1 applic topical BID PRNQty: 30 1RF ammonium lactate 12 % lotion 1 applic topical BID Qty: 225 0RF metoprolol succinate 200 mg tablet extended release 24 hr 200 mg PO DAILY isosorbide mononitrate 60 mg tablet extended release 24 hr 60 mg PO DAILY Ozempic 1 mg/dose (4 mg/3 mL) pen injector 1 mg subcut .weekly insulin glargine [Basaglar KwikPen U-100 Insulin] 100 unit/mL (3 mL) insulin pen 30 unit subcut BID potassium chloride 20 mEq tablet,ER particles/crystals 40 meq PO BID rosuvastatin 40 mg tablet 40 mg PO HS carvedilol 25 mg Tablet 25 mg PO DAILY ondansetron 4 mg tablet,disintegrating 4 mg PO Q6H PRN (Reason: nausea and vomiting) Qty: 10 0RF diphenoxylate-atropine [Lomotil] 2.5-0.025 mg tablet 1 tab PO DAILY PRN (Reason: diarrhea) 2 Days Qty: 2 0RF Rx Instructions: Start 12-14 Follow Up/Referrals: Provider,Not a Local [Primary Care Provider, Family Practice] [facility] Inst[facility]
--- OUTSIDE RECORDS SUMMARY | 2024-10-19 19:07 | XMS_ITS | CCD ---
Author Name Cecilio Durham Address [address] [place] [address] Phone Organization [facility] Phone Care Team Providers Care Forensic Document Examiner Name Role Phone Harrison Durham Primary Care Provider Leona vailable Unavailable Chronic Care Management Unavaila ble Summary Purpose DataExchange Insurance Providers Payer name Policy type / Coverage type Covered democrat ID Effective Begin Date Effective End Date Medicare [place] Medicare Part B [id number] Unknown Unknown Medicaid [place] Medicare Part B [id number] Unknown Unknown Family history Sister Brittany Suggs [...] on file 07/11/[address]: [id number] Never smoker 01/16 Sexually Active? Unknown No [...] Unknown Custodial 09/03/[address]: 365706792 No Alcohol Consum ption 09/02/2020 Allergies, Adverse Reactions, Alerts Substance Reaction Codes Entered Date Inactivated Date Status * NO KNOWN FOOD ALLERGIES Unknown 07/13/2023 No Inactive Date Active LISINOPRIL RxNorm: 03279 02/12/2020 No Inactive Da te Active Metformin HCl Unknown 02/12/2020 No Inactive Cristiano e Active * NO KNOWN ENVIRONMENTAL ALLERGIES Unknown 07/13/2023 No Inactive Date Active Problems Condition Codes Effective Dates Condition St atus Amputated toe of right foot ICD-10: S98. 131A ICD-9: 895.0 10/10/2024 Active Hypercoagulable state ICD-10: D68.59 ICD-9: 289.81 10/10/2024 Active Hypokalemia ICD-10: E87.6 ICD-9: 276.8 10/10/2024 Active Lower extremity edema ICD-10: R60.0 ICD-9: 782.3 10/10/2024 Active Major depression, recurrent ICD-10: F33. 9 ICD-9: 296.30 10/10/2024 Active Onychogryposis ICD-10: L60.2 ICD-9: 703.8 10/10/2024 Active Pulmonary nodule SNOMED CT: 149102148 ICD-10: R91.1 ICD-9: 793.11 10/10/2024 Active Recurrent major depressive disorder, in partial remission ICD-10: F33.41 ICD-9: 296.35 10/10/2024 Active Stage 2 chronic kidney disea se due to type 2 diabetes mellitus ICD-10: E11.22 ICD-9: 250.40 10/10/2024 Active Type 2 diabetes mellitus wit h diabetic polyneuropathy, with long-term current use of insulin ICD-10: E11.42 ICD-9: 250.60 10/10/2024 Active Pressure ulcer of left calf, unstageable ICD-10: L89.890 ICD-9: 707.09 10/10/2024 Resolved 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 ICD-10: K59.01 ICD-9: 564.01 09/05/[address]24 Active Loose stools SNOMED CT: 076058717 ICD-10: R19.5 ICD-9: 787.7 09/05/2024 Active Body mass index [BMI] 60.0-69.9, adult SNOMED CT: 999998200 ICD-10: Z68.44 ICD-9: V85.44 08/08/2024 Active Mixed incontinence SNOMED CT: 01833365 ICD-10: N39.46 ICD-9: 788.33 08/08/2024 Active Diabetic neuropathy associat ed with type 2 diabetes mellitus ICD-10: E11.40 ICD-9: 250.60 07/11/2024 Active Hemorrhoids ICD-10: K64.9 ICD-9: 455.6 07/11/2024 Active PVD (peripheral vascular disease) ICD-10: I73.9 ICD-9: 443.9 07/11/2024 Active Candidal intertrigo ICD-10: B37.2 ICD-9: 112.3 06/13/2024 Active Hyperlipidemia associated wi th type 2 diabetes mellitus ICD-10: E11.69 ICD-9: 250.80 06/13/2024 Active Hypertensive heart disease without heart failure ICD-10: I11.9 ICD-9: 402.90 06/13/2024 Active Advance care planning ICD-10: Z71.89 ICD-9: V65.49 05/08/2024 Active Low back pain ICD-10: M54.50 ICD-9: 724.2 03/07/2024 Active Paraparesis of both lower limbs ICD-10: G82.20 ICD-9: 344.1 03/07/2024 Active Physical deconditioning ICD-10: R53.81 ICD-9: 799.3 03/07/2024 Active Advanced care planning - to document end of life discussions Unknown 02/08/2024 Active Annual physical exam ICD-10: Z00.00 ICD-9: V70.0 02/08/2024 Active History of anemia due to CKD ICD-10: N18 .9 ICD-9: 585.9 02/08/2024 Active Hx of deep venous thrombosis ICD-10: Z86 .718 ICD-9: V12.51 02/08/2024 Active Learning disability ICD-10: F81.9 ICD-9: 315.2 02/08/2024 Active Reducible umbilical hernia ICD-10: K42.9 [...] feet ICD-10: B35.3 ICD-9: 110.4 10/12/2023 Resolved Cellulitis ICD-10: L03.90 ICD-9: 682.9 09/07/2023 Resolved [...] ICD-9: 701.9 09/07/2023 Resolved Coronary artery disease involving [place] coronary artery of [place] heart, angina [...] [facility] (current) use of insulin ICD-10: Z79.4 02/10/2022 Resolved Muscular pain ICD-10: M79.10 ICD-9: 729.1 [...] Anemia in chronic kidney disease ICD-10: D63.1 02/12/2020 Resolved Hyperlipidemia, unspecified ICD-10: E78.5 02/12/2020 Resolved Medications Medication Codes Instructions Start Date Stop Date Status Fill Instructions potassium chloride ER 20 mEq tablet,extended release RxNorm: 778915 Take 2 Tablet(s) Oral TID (dx: hypokalemia) 09/14/19 25 026 Active potassium chloride ER 20 mEq tablet,extended release RxNorm: 550610 Take 2 Tablet(s) Oral TID (dx: hypokalemia) 09/14/19 25 Inactive loperamide 2 mg tablet RxNorm: 725196 Take 2 Tablet(s) Oral UD as directed [...] Date Active senna 8.6 mg tablet RxNorm: 491387 Take 1 Tablet(s) Oral QD as needed and 1 tab BID prn 09/06/19 No Stop Date Active cyclobenzaprine 10 mg tablet RxNorm: 324387 Take 1 Tablet(s) Oral QHS every night at bedtime as needed 09/06/19 No Stop Date Active loperamide 2 mg tablet RxNorm: 740455 Take 2 Tablet(s) Oral UD as directed as needed 2 tabs after first loose stool then 1 tab after each subsequent stool PRN Do not exceed 4 doses in 24 hours. Do not administer until after 3 loose stools. 09/06/19 Active pioglitazone 15 mg tablet RxNorm: 364244 Take 1 Tablet(s) Oral QD 09/06/19 No Stop Date Active loperamide 2 mg tablet RxNorm: 050278 Take 2 Tablet(s) Oral UD as directed as needed 2 tabs after first loose stool then 1 tab after each subsequent stool PRN Do not exceed 4 doses in 24 hours. Do not administer until after 3 loose stools. 09/06/19 25 025 Inactive pregabalin 100 mg capsule RxNorm: 795524 1 CAPSULE BY MOUTH EVERY MORNING (DX: NEUROPATHY) 08/23/19 25 Active FACILITY IS REQUESTING REFILL. PRIOR RX HAS BEEN EXHAUSTED. THANK YOU. pregabalin 150 mg capsule RxNorm: 177045 1 CAPSULE BY MOUTH AT BEDTIME (DX: NEUROPATHY) 08/21/19 25 025 Active FACILITY IS REQUESTING A REFILL OF THIS MEDICATION, THANK YOU! senna 8.6 mg tablet RxNorm: 923890 Take 1 Tablet(s) Oral QD as needed for constipation on day 2 of no bowel movement 08/09/19 25 025 Inactive Miralax 17 gram/dose oral powder RxNorm: 967158 Administer 17 Gram(s) Oral QD as needed for constipation on day 3 of no bowel movement 08/09/19 025 Inactive senna 8.6 mg tablet RxNorm: 289159 Take 1 Tablet(s) Oral QD as needed for constipation on day 2 of no bowel movement 08/09/19 025 Inactive Miralax 17 gram/dose oral powder RxNorm: 313384 Administer 17 Gram(s) Oral QD as needed for constipation on day 3 of no bowel movement 08/09/19 025 Inactive pregabalin 100 mg capsule RxNorm: 479846 Take 1 Capsule(s) Oral QAM every morning [...] (Concentrated) Insulin 500 unit/mL subcutaneous soln RxNorm: 822757 Inject 100 Unit(s) Subcutaneous AC before meals Three times daily before meals. 07/24/19 25 025 Inactive ammonium lactate 12 % topical cream RxNorm: 360874 Apply 1 Application Topical BID 07/20/19 No Stop Date Active ezetimibe 10 mg tablet RxNorm: 900318 Take 1 Tablet(s) Oral QD 07/18/19 No Stop Date Active senna 8.6 mg tablet RxNorm: 071899 Take 1 Tablet(s) Oral QD 07/18/19 25 025 Inactive metoprolol succinate ER 200 mg tablet,extended release 24 hr RxNorm: 047412 Take 1 Tablet(s) Oral QD 02/03/20 25 No Stop Date Active pantoprazole 40 mg tablet,delayed release RxNorm: 257706 Take 1 Tablet(s) Oral QAM every morning 06/19/19 25 No Stop Date Active hydralazine 50 mg tablet RxNorm: 159587 Take 1 Tablet(s) Oral QID 06/19/19 25 No Stop Date Active carbamazepine 200 mg tablet RxNorm: 954861 Take 1 Tablet(s) Oral BID 06/19/19 25 No Stop Date Active amlodipine 10 mg tablet RxNorm: 087180 Take 1 Tablet(s) Oral QD 06/19/19 25 No Stop Date Active Eliquis 5 mg tablet RxNorm: 5169296 Take 1 Tablet(s) Oral BID 06/19/19 25 No Stop Date Active pen needle, diabetic 30 gauge x 3/16 RxNorm: Use 1 6 times per day w/insulin 06/14/19 25 026 Active pen needle, diabetic 30 gauge x 3/16 RxNorm: Use 1 needle 6 times per day w/insulin 06/14/19 25 025 Inactive nystatin 100,000 unit/gram topical powder RxNorm: 766019 Apply 1 Application Topical BID as needed abdominal/breast /groin folds 05/24/19 25 026 Active pregabalin 100 mg capsule RxNorm: 855819 Take 1 Capsule(s) Oral QAM every morning 05/22/19 25 025 Inactive nystatin 100,000 unit/gram topical powder RxNorm: 644825 Apply 1 Application Topical BID as needed abdominal/breast /groin folds 04/11/20 24 024 Inactive chlorthalidone 25 mg tablet RxNorm: 240574 Take 1 Tablet(s) Oral QAM every morning 04/06/20 24 No Stop Date Active pregabalin 150 mg capsule RxNorm: 816042 Take 1 Capsule(s) Oral QHS every night at bedtime 03/31/20 24 024 Inactive Vascepa 1 gram capsule RxNorm: 3857307 Take 2 Capsule(s) Oral BID 03/30/20 24 025 Active rosuvastatin 40 mg tablet RxNorm: 240867 1 TAB ORALLY EVERY EVENING (DX:CORONARY ARTERY DISEASE) 03/28/20 24 No Stop Date Active venlafaxine ER 75 mg capsule,extended release 24 hr RxNorm: 279841 3 CAPS (225MG) ORALLY DAILY (DX: MOOD DISORDER) 03/28/20 No Stop Date Active pregabalin 100 mg capsule RxNorm: 218355 Take 1 Capsule(s) Oral QAM every morning 03/20/20 Inactive cholecalciferol (vitamin D3) 1,250 mcg (50,000 unit) capsule RxNorm: 443187 Take 1 Capsule(s) Oral QW once a [...] Insulin 100 unit/mL (3 mL) subcutaneous RxNorm: 8254700 Inject 40 Unit(s) Subcutaneous BID 03/07/20 025 Inactive Please dispense one month supply. Humulin R U-500 (Concentrated) Insulin 500 unit/mL subcutaneous soln RxNorm: 725710 Inject 100 Unit(s) Subcutaneous AC before meals [...] PRN) to be use with new Accu [place] meter 03/04/20 Inactive ok to substitute with any covered alternative test strip FreeStyle Chema 2 Sensor kit RxNorm: Use UD as directed 03/02/20 Inactive Pen Needle 30 gauge x 5/16 RxNorm: Pen(s) Use 1 needle as directed TID 03/02/20 Inactive nystatin 100,000 unit/gram topical powder RxNorm: 198914 Apply 1 Application Topical BID as needed [...] (Concentrated) Insulin 500 unit/mL subcutaneous soln RxNorm: 376152 Inject 100 Unit(s) Subcutaneous TID 02/17/20 24 024 Inactive Humulin R U-500 (Concentrated) Insulin 500 unit/mL subcutaneous soln RxNorm: 160784 Inject 100 Unit(s) Subcutaneous TID 02/10/20 24 024 Inactive Basaglar KwikPen U-100 Insulin 100 unit/mL (3 mL) subcutaneous RxNorm: 2533245 Inject 30 Unit(s) Subcutaneous BID 02/10/20 24 024 Inactive Please dispense one month supply. pregabalin 100 mg capsule RxNorm: 686959 Take 1 Capsule(s) Oral QAM every morning 02/07/20 24 024 Inactive isosorbide mononitrate ER 60 mg tablet,extended release 24 hr RxNorm: 535898 Take 1 Tablet(s) Oral QD 02/01/20 24 025 Active aripiprazole 15 mg tablet RxNorm: 198379 Take 1/2 Tablet(s) Oral QD 02/01/20 24 025 Active torsemide 20 mg tablet RxNorm: 649050 1 TAB ORALLY DAILY (DX: EDEMA) 01/27/20 No Stop Date Active potassium chloride ER 20 mEq tablet,extended release(part/cryst) RxNorm: 9483382 2 TABS (40MEQ) ORALLY TWICE DAILY (DX: HYPOKALEMIA) 01/27/20 24 025 Inactive cephalexin 500 mg capsule RxNorm: 570312 Take 1 Capsule(s) Oral QID 12/17/19 24 024 Inactive cephalexin 500 mg capsule RxNorm: 833834 Take 1 Capsule(s) Oral QID 12/17/19 24 024 Inactive acetaminophen 500 mg tablet RxNorm: 804979 (MAX APAP:4GM/24HR) Take 1 Tablet(s) Oral TID as needed for pain 12/10/19 24 024 Inactive torsemide 20 mg tablet RxNorm: 804681 Take 1 Tablet(s) Oral QD 10/26/19 24 024 Inactive potassium chloride ER 20 mEq tablet,extended release RxNorm: 427736 Take 2 Tablet(s) Oral BID 10/26/19 24 024 Inactive torsemide 20 mg tablet RxNorm: 573903 Take 1 Tablet(s) Oral QD 10/26/19 24 Inactive potassium chloride ER 20 mEq tablet,extended release RxNorm: 661422 Take 2 Tablet(s) Oral BID 10/26/19 24 Inactive Artificial Tears (PF) 0.1 %-0.3 % drops in a dropperette RxNorm: 841206 Apply 1-2 Drop(s) Both eyes BID as needed 09/28/19 24 025 Inactive erythromycin 5 mg/gram (0.5 %) eye ointment RxNorm: 432357 Apply 1 Application Both eyes QHS every night at bedtime Instill ~1 cm ribbon into affected eye 09/28/19 24 024 Inactive Artificial Tears (PF) 0.1 %-0.3 % drops in a dropperette RxNorm: 451763 Apply 1-2 Drop(s) Both eyes BID as needed 09/28/19 24 Inactive erythromycin 5 mg/gram (0.5 %) eye ointment RxNorm: 317558 Apply 1 Application Both eyes QHS every night at bedtime Instill ~1 cm ribbon into affected eye 09/28/19 24 Inactive acetaminophen 500 mg tablet RxNorm: 224234 (MAX APAP:4GM/24HR) Take 1 Tablet(s) Oral TID as needed for pain 09/24/19 24 Inactive carvedilol 25 mg tablet RxNorm: 778653 Take 1 Tablet(s) Oral QD 09/08/19 24 No Stop Date Active pregabalin 100 mg capsule RxNorm: 418122 Take 1 Capsule(s) Oral QAM every morning 09/07/19 24 024 Inactive bisacodyl 10 mg rectal suppository RxNorm: 416167 Insert 1 Suppository Rectal QD as needed 07/13/19 24 No Stop Date Active ketoconazole 2 % shampoo RxNorm: 240463 Apply 1 Application Topical UD as directed 07/13/19 24 No Stop Date Active Ozempic 1 mg/dose (4 mg/3 mL) subcutaneous pen injector RxNorm: 8040312 Inject 1 Milligram(s) Subcutaneous QW once a week 07/13/19 24 No Stop Date Active Guaifenesin AC 10 mg-100 mg/5 mL oral liquid RxNorm: 446249 Take 10 Milliliter(s) Oral Q4H every four hours as needed 07/13/19 24 No Stop Date Active hydrocortisone 2.5 % topical cream RxNorm: 002362 Apply 1 Application Topical BID as needed 07/13/19 24 No Stop Date Active rosuvastatin 40 mg tablet RxNorm: 663902 Take 1 Tablet(s) Oral QPM every evening 07/13/19 24 024 Inactive ezetimibe 10 mg tablet RxNorm: 744122 Take 1 Tablet(s) Oral QD 07/13/19 24 025 Inactive polyethylene glycol 3350 17 gram/dose oral powder RxNorm: 371675 Take 17 Gram(s) Oral BID as needed mix in 4-8ox water 07/13/19 24 025 Inactive aripiprazole 15 mg tablet RxNorm: 874698 Take 1/2 Tablet(s) Oral QD 07/13/19 24 024 Inactive isosorbide mononitrate ER 60 mg tablet,extended release 24 hr RxNorm: 693914 Take 1 Tablet(s) Oral QD 07/13/19 24 024 Inactive ammonium lactate 12 % topical cream RxNorm: 533153 Apply 1 Application Topical BID 07/13/19 24 025 Inactive rosuvastatin 20 mg sprinkle capsule RxNorm: 6837400 Take 1 Capsule(s) Oral QD 07/13/19 24 025 Inactive Vascepa 1 gram capsule RxNorm: 2465499 Take 2 Capsule(s) Oral BID 07/13/19 24 024 Inactive venlafaxine ER 75 mg capsule,extended release 24 hr RxNorm: 077648 Take 3 Capsule(s) Oral QD 07/13/19 24 024 Inactive Basaglar KwikPen U-100 Insulin 100 unit/mL (3 mL) subcutaneous RxNorm: 9848142 Inject 30U SubQ twice daily 07/07/19 24 024 Inactive Please dispense one month supply. Basaglar KwikPen U-100 Insulin 100 unit/mL (3 mL) subcutaneous RxNorm: 9925940 Inject 30U SubQ twice daily 07/07/19 24 024 Inactive Please dispense one month supply. pregabalin 150 mg capsule RxNorm: 546731 Take 1 Capsule(s) Oral QHS every night at bedtime 07/05/19 24 024 Inactive pregabalin 150 mg capsule RxNorm: 897060 Take 1 Capsule(s) Oral QHS every night at bedtime 07/05/19 24 024 Inactive polyethylene glycol 3350 17 gram/dose oral powder RxNorm: 889651 Take 1 Packet Oral QD as needed (1 packet = 17g) mix with 4-8oz of liquid 06/15/19 024 Inactive bisacodyl 10 mg rectal suppository RxNorm: 180341 Insert one suppository per rectum once daily as needed for constipation 06/15/19 024 Inactive bisacodyl 10 mg rectal suppository RxNorm: 247873 Insert one suppository per rectum once daily as needed for constipation 06/15/19 024 Inactive pregabalin 100 mg capsule RxNorm: 804234 Take 1 Capsule(s) Oral QAM every morning 04/27/20 024 Inactive Levemir FlexPen 100 unit/mL (3 mL) solution subcutaneous insulin pen RxNorm: 066406 Inject 30 Unit(s) Subcutaneous BID 04/27/20 024 Inactive rosuvastatin 40 mg tablet RxNorm: 993268 Take 1 Tablet(s) Oral QPM every evening 04/16/20 024 Inactive D/C rosuvastatin 20mg venlafaxine ER 75 mg capsule,extended release 24 hr RxNorm: 515790 Take 3 Capsule(s) Oral QD 04/14/20 023 Inactive pregabalin 100 mg capsule RxNorm: 562450 Take 1 Capsule(s) Oral QAM every morning [...] strip clotrimazole 1 % topical cream RxNorm: 819272 Take apply topically to abdominal folds twice daily for 14 days 03/12/20 024 Inactive Ozempic 1 mg/dose (4 mg/3 mL) subcutaneous pen injector RxNorm: 1914777 Inject 1 Milligram(s) Subcutaneous QW once a week 03/11/20 23 023 Inactive rosuvastatin 20 mg tablet RxNorm: 754166 Take 1 Tablet(s) Oral QD 02/26/20 23 023 Inactive d/c pravastatin 80mg Ozempic 1 mg/dose (4 mg/3 mL) subcutaneous pen injector RxNorm: 7254601 Inject 1 Milligram(s) Subcutaneous QW once a week 02/20/20 23 023 Inactive pregabalin 150 mg capsule RxNorm: 702588 Take 1 Capsule(s) Oral HS at bed time 02/19/20 23 023 Inactive pregabalin 100 mg capsule RxNorm: 760894 Take 1 Capsule(s) Oral QAM every morning 02/18/20 023 Inactive venlafaxine ER 75 mg capsule,extended release 24 hr RxNorm: 937099 Take 3 Capsule(s) Oral QD 02/04/20 23 023 Inactive FreeStyle Chema 2 Sensor kit RxNorm: use as directed 02/04/20 23 023 Inactive FreeStyle Chema 2 Sensor kit RxNorm: use as directed 02/04/20 23 024 Inactive fluconazole 150 mg tablet RxNorm: 416746 Take 1 Tablet(s) Oral on day 3 and on day 6 02/03/20 024 Inactive venlafaxine ER 150 mg capsule,extended release 24 hr RxNorm: 890247 Take 1 Capsule(s) Oral QD 02/03/20 023 Inactive chlorthalidone 25 mg tablet RxNorm: 298004 Take 1 Tablet(s) Oral QAM every morning 02/03/20 23 024 Inactive acetaminophen 500 mg tablet RxNorm: 788677 1 TABLET ORALLY 3 TIMES DAILY (MAX APAP:4GM/24HR) 12/15/19 23 023 Inactive potassium chloride ER 20 mEq tablet,extended release RxNorm: 647112 Take 1 Tablet(s) Oral BID 12/09/19 23 024 Inactive d/c 20mEq once daily (sent from hospital) clotrimazole 1 % topical cream RxNorm: 071671 apply 1g topically to top of feet and in between toes BID 12/09/19 23 025 Inactive nystatin 100,000 unit/gram topical powder RxNorm: 676868 APPLY TO AFFECTED AREAS TOPICALLY 2 TIMES DAILY 11/21/19 23 023 Inactive Nystop 100,000 unit/gram topical powder RxNorm: 530393 Apply to abd folds, under breasts and L side of groin Topical BID x 14 days, then BID PRN 11/20/19 023 Inactive dx: yeast dermatitis [place] Ultra Strength 4 %-30 %-10 % topical cream RxNorm: 330238 Apply 1 Gram(s) Topical QID PRN to feet and legs for neuropathic pain 11/11/19 024 Inactive clotrimazole 1 % topical cream RxNorm: 563229 Apply 1/2 Gram(s) Topical BID Apply to affected areas of groin, periarea, and abdominal topically 2 times daily 11/10/19 023 Inactive hydrocortisone 2.5 % topical cream RxNorm: 655644 Apply 1/2 Gram(s) Topical BID as needed 11/10/19 024 Inactive Levemir FlexPen 100 unit/mL (3 mL) solution subcutaneous insulin pen RxNorm: 601300 Inject 30 Unit(s) Subcutaneous BID 10/07/19 023 Inactive Humulin R U-500 (Concentrated) Insulin 500 unit/mL subcutaneous soln RxNorm: 712088 Inject 100 Unit(s) Subcutaneous TID 10/07/19 024 Inactive Ozempic 0.25 mg or 0.5 mg (2 mg/3 mL) subcutaneous pen injector RxNorm: 2483013 Inject 1/2 Milligram(s) Subcutaneous QW once a week 10/07/19 024 Inactive aripiprazole 15 mg tablet RxNorm: 790221 1/2 TAB (7.5MG) ORALLY DAILY (DX:MAJOR DEPRESSIVE DISORDER) 09/23/19 23 023 Inactive Accu-Chek Guide test strips RxNorm: Use 1 Test Strip QID 09/15/19 23 023 Inactive ok to substitute with any covered alternative test strip Lancets,Thin 28 gauge RxNorm: Use 1 as directed QID 09/15/19 23 023 Inactive torsemide 20 mg tablet RxNorm: 096779 Take 1 Tablet(s) Oral BID 09/09/19 23 024 Inactive d/c once daily dosing carvedilol 25 mg tablet RxNorm: 815077 Take 1 Tablet(s) Oral QD 08/25/19 23 024 Inactive pregabalin 150 mg capsule RxNorm: 556718 1 Capsule(s) Oral HS at bed time 08/18/19 23 023 Inactive pregabalin 100 mg capsule RxNorm: 489017 1 Capsule(s) Oral QAM every morning 08/18/19 23 023 Inactive carvedilol 25 mg tablet RxNorm: 639295 1 Tablet(s) Oral QD 07/28/19 23 023 Inactive lisinopril 20 mg tablet RxNorm: 446528 Give 1 Tablet(s) Oral QD 07/28/19 23 023 Inactive Lyrica 150 mg capsule RxNorm: 401532 Take 1 Capsule(s) Oral QHS every night at bedtime 07/19/19 23 023 Inactive d/c 100mg dose Diflucan 150 mg tablet RxNorm: 843231 Take 1 Tablet(s) Oral QD repeat on day 3 and 6 07/19/19 23 023 Inactive pregabalin 100 mg capsule RxNorm: 080353 Take 1 Capsule(s) Oral QAM every morning 07/19/19 23 023 Inactive gatifloxacin 0.5 % eye drops RxNorm: 918783 Instill 1 Drop(s) as directed TID Instill 1 drop in to affected eye(s) starting 1 day prior to surgery and continue until gone (do not exceed 4 weeks). 07/13/19 23 023 Inactive carvedilol 25 mg tablet RxNorm: 160468 2 Tablet(s) Oral BID 07/13/19 23 023 Inactive Humulin R Regular U-100 Insulin 100 unit/mL injection solution RxNorm: 334757 85 Unit(s) Injection TID 07/13/19 23 023 Inactive ketorolac 0.5 % eye drops RxNorm: 162274 Instill 1 Drop(s) as directed QID Instill 1 drop into affected eye(s) 4 times daily starting 1 day prior to surgery and continue until gone (do not exceed 4 weeks). 07/13/19 23 023 Inactive Diflucan 150 mg tablet RxNorm: 182383 Take 1 Tablet(s) Oral QD repeat on day 3 and 6 06/30/19 23 023 Inactive Accu-Chek Guide test strips RxNorm: Use 1 Test Strip QID Use 1 test strip to monitor blood glucose 4 times daily and as needed. Dx:E11.42. 06/23/19 023 Inactive ok to substitute with any covered alternative test strip dextromethorphan-gu aifenesin 10 mg-100 mg/5 mL oral liquid RxNorm: 882907 Take 10 Milliliter(s) Oral every 4 hours as needed for cough 06/19/19 023 Inactive dextromethorphan-gu aifenesin 10 mg-100 mg/5 mL oral liquid RxNorm: 358493 Take 10 Milliliter(s) Oral every 4 hours as needed for cough 06/19/19 023 Inactive Lyrica 150 mg capsule RxNorm: 143250 Take 1 Capsule(s) Oral QHS every night at bedtime 06/18/19 23 023 Inactive d/c 100mg dose aripiprazole 15 mg tablet RxNorm: 065880 /2 TAB (7.5MG) ORALLY DAILY (DX:MAJOR DEPRESSIVE DISORDER) 06/05/19 23 023 Inactive pregabalin 100 mg capsule RxNorm: 186259 1 Capsule(s) Oral QAM every morning 06/02/19 23 023 Inactive Banophen 50 mg capsule RxNorm: 3736941 Take 1 Capsule(s) Oral Q6H every 6 hours as needed 05/19/19 23 No Stop Date Active Novolog Flexpen U-100 Insulin aspart 100 unit/mL (3 mL) subcutaneous RxNorm: 8076821 Inject 10 Unit(s) Subcutaneous QHS every night at bedtime with nighttime snack 11/23/20 22 12/22/2 022 Inactive Novolog Flexpen U-100 Insulin aspart 100 unit/mL (3 mL) subcutaneous RxNorm: 6524260 Inject 42 Unit(s) Subcutaneous TID in addition to sliding scale 04/08/20 022 Inactive d/c 36u albuterol sulfate HFA 90 mcg/actuation aerosol inhaler RxNorm: 9040910 Take 2 Puff(s) Inhalation Q4H every four hours as needed as needed for SOB, cough, or wheezing 04/07/20 030 Active Banophen 50 mg capsule RxNorm: 6062877 Take 1 Capsule(s) Oral Q6H every 6 hours as needed 04/06/20 023 Inactive diphenhydramine 50 mg tablet RxNorm: 4155229 Take 1 Tablet(s) Oral Q6H every 6 hours as needed 04/06/20 022 Inactive diphenhydramine 50 mg tablet RxNorm: 2928258 1 Tablet(s) Oral Q6H every 6 hours as needed 04/06/20 022 Inactive Abilify 15 mg tablet RxNorm: 050506 1/2 Tablet(s) Oral QD 03/10/20 023 Inactive Shingrix (PF) 50 mcg/0.5 mL intramuscular suspension, kit RxNorm: 8912253 Administer 1/2 Milliliter(s) Intramuscular QD one time shingrix step 2 ( step 1 given 11/04/21) WITH needle - Nursing please administer upon arrival and once administered post a bridge message with date of administration, photogeologist, expiration date, and lot# so we can update [facility] 02/18/20 22 022 Inactive dispense with needle Shingrix (PF) 50 mcg/0.5 mL intramuscular suspension, kit RxNorm: 0193563 Administer 1/2 Milliliter(s) Intramuscular QD one time shingrix step 2 ( step 1 given 11/04/21) WITH needle - Nursing please administer upon arrival and once administered post a bridge message with date of administration, photogeologist, expiration date, and lot# so we can update [facility] 02/18/20 22 022 Inactive dispense with needle Lyrica 100 mg capsule RxNorm: 507885 Take 1 Capsule(s) Oral QAM every morning 01/08/20 22 022 Inactive d/c 50mg dose acetaminophen 500 mg tablet RxNorm: 147445 Take 1 Tablet(s) Oral TID 01/08/20 22 022 Inactive d/c PRN order Lyrica 150 mg capsule RxNorm: 230539 Take 1 Capsule(s) Oral QHS every night at bedtime 01/08/20 22 023 Inactive d/c 100mg dose polyethylene glycol 3350 17 gram/dose oral powder RxNorm: 303689 Take 17=1 capful Gram(s) Oral QD mix with 4-8oz of liquid 01/08/20 22 025 Inactive take this in addition to BID prn order Abilify 5 mg tablet RxNorm: 206107 Take 1 Tablet(s) Oral QD take 1 tab po QD #30 refill 5 dx: MDD 12/12/19 22 022 Inactive Abilify 5 mg tablet RxNorm: 692015 Take 1 Tablet(s) Oral QD take 1 tab po QD #30 refill 5 dx: MDD 12/12/19 22 022 Inactive Novolog Flexpen U-100 Insulin aspart 100 unit/mL (3 mL) subcutaneous RxNorm: 2313841 Inject 42 Unit(s) Subcutaneous TID in addition to sliding scale 12/10/19 22 022 Inactive d/c 36u chlorthalidone 25 mg tablet RxNorm: 321359 Take 1 Tablet(s) Oral QAM every morning 12/10/19 22 023 Inactive pregabalin 50 mg capsule RxNorm: 958097 Take 1 Capsule(s) Oral QAM every morning 11/12/19 22 022 Inactive tetanus-diphtheria toxoids-Td 2 Lf unit-2 Lf unit/0.5 mL IM suspension RxNorm: 139 Take 0.5 Miscellaneous Intramuscular 11/12/19 22 022 Inactive need tdap - nursing to administer upon arrival pregabalin 50 mg capsule RxNorm: 361265 Take 1 Capsule(s) Oral QAM every morning 10/16/19 22 022 Inactive pregabalin 50 mg capsule RxNorm: 624624 Take 1 Capsule(s) Oral QAM every morning 10/16/19 22 022 Inactive pregabalin 50 mg capsule RxNorm: 362068 1 Capsule(s) Oral QAM every morning 10/15/19 22 022 Inactive Shingrix (PF) 50 mcg/0.5 mL intramuscular suspension, kit RxNorm: 9353222 Administer 1/2 Milliliter(s) Intramuscular one time Nursing please administer upon arrival and once administered post a bridge message with date of administration, photogeologist, expiration date, and lot# so we can update [facility]. 10/09/19 22 022 Inactive shingrix step 1 Shingrix (PF) 50 mcg/0.5 mL intramuscular suspension, kit RxNorm: 9173570 Administer 1/2 Milliliter(s) Intramuscular one time Nursing please administer upon arrival and once administered post a bridge message with date of administration, photogeologist, expiration date, and lot# so we can [...] aspart 100 unit/mL (3 mL) subcutaneous RxNorm: 5288409 Inject 10 Unit(s) Subcutaneous QHS every night at bedtime with nighttime snack 10/08/19 22 Inactive Shingrix (PF) 50 mcg/0.5 mL intramuscular suspension, kit RxNorm: 7970025 ADMINISTER 2-DOSE SERIES PER CDC GUIDELINES 10/08/19 22 022 Active Shingrix (PF) 50 mcg/0.5 mL intramuscular suspension, kit RxNorm: 7092328 ADMINISTER 2-DOSE SERIES PER CDC GUIDELINES 10/08/19 22 Inactive Novolog Flexpen U-100 Insulin aspart 100 unit/mL (3 mL) subcutaneous RxNorm: 1089568 Inject 36 Unit(s) Subcutaneous TID in addition to sliding scale 10/08/19 22 Inactive cholecalciferol (vitamin D3) 1,250 mcg (50,000 unit) capsule RxNorm: 898467 Take 1 Capsule(s) Oral QW once a week 10/08/19 Inactive Novofine Autocover 30 gauge x 1/3 needle RxNorm: Use 1 Miscellaneous UD as directed Use 1 needle as directed to administer insulin 5 times a day Dx:E11.42. 10/03/19 Inactive ok to substitute with any covered alternative pen needle benzoyl peroxide 10 % topical cleanser RxNorm: 929376 Apply 1 Application Topical QD apply to face, wash rinse and dry once daily (may change to QOD if drying) 08/19/19 022 Inactive (%covered by insurance) #60ml refill 11 dx: acne benzoyl peroxide 10 % topical cleanser RxNorm: 423809 Apply 1 Application Topical QD apply to face, wash rinse and dry once daily (may change to QOD if drying) 08/19/19 22 022 Inactive (%covered by insurance) #60ml refill 11 dx: acne benzoyl peroxide 10 % topical cleanser RxNorm: 136037 Apply 1 Application Topical QD apply to face, wash rinse and dry once daily (may change to QOD if drying) 08/19/19 22 022 Inactive (%covered by insurance) #60ml refill 11 dx: acne Lyrica 50 mg capsule RxNorm: 988973 Take 1 Capsule(s) Oral QAM every morning Take 1 capsule by mouth once daily 08/19/19 22 022 Inactive benzoyl peroxide 10 % topical cleanser RxNorm: 920230 Apply 1 Application Topical QD apply to face, wash rinse and dry once daily (may change to QOD if drying) 08/19/19 22 022 Inactive (%covered by insurance) #60ml refill 11 dx: acne Lyrica 100 mg capsule RxNorm: 912626 Take 1 Capsule(s) Oral QHS every night at bedtime Take 1 capsule by mouth once daily at bedtime 08/19/19 22 022 Inactive Lyrica 100 mg capsule RxNorm: 206826 Take 1 Capsule(s) Oral QHS every night at bedtime Take 1 capsule by mouth once daily at bedtime 08/16/19 22 022 Inactive Lyrica 50 mg capsule RxNorm: 269138 Take 1 Capsule(s) Oral QAM every morning Take 1 capsule by mouth once daily 08/16/19 22 022 Inactive Levemir FlexTouch U-100 Insulin 100 unit/mL (3 mL) subcutaneous pen RxNorm: 946533 Inject 86 Unit(s) Subcutaneous BID 08/05/19 22 022 Inactive d/c 83units BID Lyrica 100 mg capsule RxNorm: 894712 Take 1 Capsule(s) Oral QHS every night at bedtime Take 1 capsule by mouth once daily at bedtime 07/14/19 22 022 Inactive Lyrica 50 mg capsule RxNorm: 198722 Take 1 Capsule(s) Oral QAM every morning Take 1 capsule by mouth once daily 07/14/19 22 022 Inactive Levemir FlexTouch U-100 Insulin 100 unit/mL (3 mL) subcutaneous pen RxNorm: 065934 Inject 83 Unit(s) Subcutaneous BID 07/08/19 22 [...] test strip hydralazine 50 mg tablet RxNorm: 400867 Take 1 Tablet(s) Oral QID 05/05/20 21 022 Inactive venlafaxine ER 225 mg tablet,extended release 24 hr RxNorm: 398020 Take 1 Tablet(s) Oral QD 05/05/20 21 021 Inactive venlafaxine ER 225 mg tablet,extended release 24 hr RxNorm: 008336 Take 1 Tablet(s) Oral QD 05/05/20 21 022 Inactive isosorbide mononitrate ER 30 mg tablet,extended release 24 hr RxNorm: 727332 Take 1 Tablet(s) Oral QD 05/05/20 21 024 Inactive hydralazine 50 mg tablet RxNorm: 485374 Take 1 Tablet(s) Oral QID 05/05/20 21 021 Inactive aspirin 81 mg tablet,delayed release RxNorm: 710891 Take 1 Tablet(s) Oral QD 03/31/20 21 022 Inactive Vitamin D2 1,250 mcg (50,000 unit) capsule RxNorm: 2127142 Take 1 Capsule(s) Oral QW once a week x 12 weeks 03/31/20 022 Inactive Vitamin D2 1,250 mcg (50,000 unit) capsule RxNorm: 9735600 Take 1 Capsule(s) Oral QW once a week 03/31/20 021 Inactive Zetia 10 mg tablet RxNorm: 812181 Take 1 Tablet(s) Oral QD 03/31/20 024 Inactive Zetia 10 mg tablet RxNorm: 232579 Take 1 Tablet(s) Oral QD 03/31/20 021 Inactive hydralazine 25 mg tablet RxNorm: 330619 Take 1 Tablet(s) Oral QID 03/31/20 021 Inactive hydralazine 25 mg tablet RxNorm: 782146 Take 1 Tablet(s) Oral QID 03/31/20 021 Inactive hydralazine 10 mg tablet RxNorm: 639734 Take 1 Tablet(s) Oral QID 03/03/20 021 Inactive cephalexin 500 mg tablet RxNorm: 151306 Take 1 Tablet(s) Oral QID 02/27/20 021 Inactive cephalexin 500 mg tablet RxNorm: 392332 Take 1 Tablet(s) Oral QID 02/27/20 021 Inactive lisinopril 40 mg tablet RxNorm: 113411 Take 1 Tablet(s) Oral QD 02/11/20 21 023 Inactive Eliquis 5 mg tablet RxNorm: 5857520 Take 1 Tablet(s) Oral BID 01/05/20 21 025 Inactive Eliquis 5 mg tablet RxNorm: 2024108 Take 2 Tablet(s) Oral QD 01/01/20 21 021 Inactive Lyrica 50 mg capsule RxNorm: 874588 Take 1 Capsule(s) Oral QAM every morning 12/24/19 21 021 Inactive Lyrica 100 mg capsule RxNorm: 234153 Take 1 Capsule(s) Oral QHS every night at bedtime 12/24/19 21 021 Inactive clotrimazole 1 % topical cream RxNorm: 106822 Apply to right foot and toes Topical BID 12/04/19 21 023 Inactive metoprolol succinate ER 200 mg tablet,extended release 24 hr RxNorm: 946759 Take 1 Tablet(s) Oral QD 12/04/19 21 023 Inactive ciprofloxacin 500 mg tablet RxNorm: 743121 Take 1 Tablet(s) Oral QD 11/30/19 21 021 Inactive DX ofloxacin otic drops Accu-Chek Guide test strips RxNorm: USE 1 TO CHECK GLUCOSE 4 TIMES DAILY AND NEEDED 11/15/19 21 023 Inactive Blood Glucose Test strips RxNorm: Use 1 Test Strip QID at PRN 11/05/19 21 023 Inactive E11.42 lisinopril 30 mg tablet RxNorm: 570936 Take 1 Tablet(s) Oral QD 10/30/19 21 021 Inactive lisinopril 20 mg tablet RxNorm: 459219 Take 1 Tablet(s) Oral QD 10/23/19 21 021 Inactive lisinopril 20 mg tablet RxNorm: 689861 Take 1 Tablet(s) Oral QD 10/23/19 21 021 Inactive lisinopril 10 mg tablet RxNorm: 041640 Take 1 Tablet(s) Oral QD 10/02/19 21 021 Inactive icosapent ethyl 1 gram capsule RxNorm: 5572940 Take 2 Capsule(s) (2 gm) Oral BID with meals 09/12/19 024 Inactive Okay to dispense one 2gm tab if you have that available. icosapent ethyl 1 gram capsule RxNorm: 9027008 Take 2 Capsule(s) Oral BID 09/12/19 21 021 Inactive Okay to dispense one 2gm tab if you have that available. amlodipine 10 mg tablet RxNorm: 184289 Take 1 Tablet(s) Oral QD 09/04/19 21 021 Inactive aspirin 81 mg tablet,delayed release RxNorm: 585711 Take 1 Tablet(s) Oral QD 09/04/19 21 021 Inactive Levemir FlexTouch U-100 Insulin 100 unit/mL (3 mL) subcutaneous pen RxNorm: 787468 Inject 150 Unit(s) Subcutaneous BID 04 022 Inactive venlafaxine ER 150 mg tablet,extended release 24 hr RxNorm: 510645 Take 1 Tablet(s) Oral QD 09/04/19 Inactive clotrimazole-betame thasone 1 %-0.05 % topical cream RxNorm: 097951 Apply to rash on red area on left abdomen/chest Topical BID 08/10/19 21 Inactive amlodipine 5 mg tablet RxNorm: 670707 Take 1 Tablet(s) Oral QD 07/31/19 Inactive cephalexin 500 mg tablet RxNorm: 908117 Take 1 Tablet(s) Oral BID BID - Twice Daily 07/31/19 Inactive Start 08/01/20 pantoprazole 40 mg tablet,delayed release RxNorm: 863949 Take 1 Tablet(s) Oral QAM every morning 07/08/19 Inactive clopidogrel 75 mg tablet RxNorm: 879239 Take 1 Tablet(s) Oral QD 07/08/19 021 Inactive Blood Glucose Test strips RxNorm: Use 1 Test Strip QID at PRN 07/08/19 21 Inactive E11.42 senna 8.6 mg tablet RxNorm: 905158 Take 1 Tablet(s) Oral QD 07/08/19 025 Inactive Novolog Flexpen U-100 Insulin aspart 100 unit/mL (3 mL) subcutaneous RxNorm: 9242903 Administer per sliding scale Milliliter(s) Subcutaneous TID 151-200: 10 u; 201-250: 20 u; 251-300: 30 u; 301-350: 40 u; 351-400: 50 u. 07/08/19 21 022 Inactive lisinopril 5 mg tablet RxNorm: 930396 Take 1 Tablet(s) Oral QD 07/08/19 021 Inactive Novolog Flexpen U-100 Insulin aspart 100 unit/mL (3 mL) subcutaneous RxNorm: 3319862 Inject 85 Unit(s) Subcutaneous TID 07/08/19 022 Inactive pravastatin 80 mg tablet RxNorm: 317687 Take 1 Tablet(s) Oral QHS every night at bedtime 07/08/19 023 Inactive clotrimazole 1 % topical cream RxNorm: 950614 Apply to bilateral groin areas Topical BID 07/08/19 022 Inactive metoprolol succinate ER 200 mg tablet,extended release 24 hr RxNorm: 123298 Take 1 Tablet(s) Oral QD 07/08/19 021 Inactive Vitamin D3 25 mcg (1,000 unit) tablet RxNorm: 993969 Take 1 Tablet(s) Oral QD 07/08/19 021 Inactive isosorbide dinitrate 30 mg tablet RxNorm: 870557 Take 1 Tablet(s) Oral QD 07/08/19 021 Inactive carbamazepine 200 mg tablet RxNorm: 507870 Take 1 Tablet(s) Oral BID 07/08/19 025 Inactive Levemir FlexTouch U-100 Insulin 100 unit/mL (3 mL) subcutaneous pen RxNorm: 636806 Inject 140 Unit(s) Subcutaneous BID 07/08/19 021 Inactive torsemide 20 mg tablet RxNorm: 218591 Take 1 Tablet(s) Oral QD 07/08/19 023 Inactive venlafaxine 75 mg tablet RxNorm: 980416 Take 1 Tablet(s) Oral QD 07/08/19 021 Inactive acetaminophen 500 mg tablet RxNorm: 885273 Take 1 Tablet(s) Oral TID as needed for headache 06/18/19 021 Inactive acetaminophen 500 mg tablet RxNorm: 003707 Take 1 Tablet(s) Oral TID as needed for headache 06/18/19 021 Inactive Lyrica 100 mg capsule RxNorm: 293031 Take 1 Capsule(s) Oral QHS every night at bedtime 06/11/19 021 Inactive Lyrica 50 mg capsule RxNorm: 191071 Take 1 Capsule(s) Oral QAM every morning 06/10/19 21 021 Inactive hydrocortisone 2.5 % topical cream RxNorm: 008128 Apply to bilateral groin creases Topical BID 05/15/20 20 021 Inactive clotrimazole 1 % topical cream RxNorm: 337702 Apply to bilateral groin areas Topical BID 05/15/20 20 Inactive Lyrica 50 mg capsule RxNorm: 183754 Take 1 Capsule(s) Oral QAM every morning 05/14/20 20 Inactive Lyrica 100 mg capsule RxNorm: 361217 Take 1 Capsule(s) Oral QHS every night [...] Inactive Nystop 100,000 unit/gram topical powder RxNorm: 387014 Apply to abd folds, under breasts and L side of groin Topical BID x 14 days, then BID PRN 04/08/20 20 Inactive dx: yeast dermatitis Lyrica 100 mg capsule RxNorm: 756333 Take 1 Capsule(s) Oral QHS every night at bedtime 03/13/20 20 Inactive Lyrica 50 mg capsule RxNorm: 335203 Take 1 Capsule(s) Oral QAM every morning 03/13/20 20 Inactive ketoconazole 2 % shampoo RxNorm: 230600 Apply Topical two times a week with showers 03/11/20 20 024 Inactive cholecalciferol (vitamin D3) 50 mcg (2,000 unit) tablet RxNorm: 864754 Take 1 Tablet(s) Oral QD 03/11/20 20 021 Inactive Zetia 10 mg tablet RxNorm: 264057 Take 1 Tablet(s) Oral QD 03/07/20 20 021 Inactive Zetia 10 mg tablet RxNorm: 584359 Take 1 Tablet(s) Oral QD 03/07/20 20 020 Inactive Lyrica 50 mg capsule RxNorm: 298976 Take 1 Capsule(s) Oral QAM every morning 02/15/20 20 Inactive Lyrica 100 mg capsule RxNorm: 061308 Take 1 Capsule(s) Oral QHS every night at bedtime 02/15/20 20 Inactive Lyrica 100 mg capsule RxNorm: 283007 Take 1 Capsule(s) Oral QHS every night at bedtime 02/15/20 20 Inactive Lyrica 50 mg capsule RxNorm: 947189 Take 1 Capsule(s) Oral QAM every morning 02/15/20 Inactive venlafaxine ER 75 mg capsule,extended release 24 hr RxNorm: 920352 Take 3 Capsule(s) Oral QD 06/12/19 22 023 Inactive polyethylene glycol 3350 17 gram/dose oral powder RxNorm: 036271 Take 17=1 capful Gram(s) Oral BID as needed mix with 4-8oz of liquid 06/12/19 22 024 Inactive icosapent ethyl 1 gram capsule RxNorm: 3324163 Take 2 Capsule(s) (2 gm) Oral BID with meals 10/07/19 23 023 Inactive Okay to dispense one 2gm tab if you have that available. Levemir FlexTouch U-100 Insulin 100 unit/mL (3 mL) subcutaneous pen RxNorm: 398432 Inject 80 Unit(s) Subcutaneous BID 07/14/19 023 Inactive metoprolol succinate ER 200 mg tablet,extended release 24 hr RxNorm: 677213 Take 1 Tablet(s) Oral QD 08/12/19 025 Inactive loperamide 2 mg capsule RxNorm: 254202 Take 1 Capsule(s) Oral QID as needed 09/06/19 025 Inactive hydralazine 50 mg tablet RxNorm: 923382 Take 1 Tablet(s) Oral QID 08/12/19 025 Inactive Soft Touch Lancets RxNorm: miscellaneous 03/04/20 025 Inactive Novolog Flexpen U-100 Insulin aspart 100 unit/mL (3 mL) subcutaneous RxNorm: 4916580 Insert 30 Unit(s) Subcutaneous TID with meals [...] Planned Activity Notes Codes Status Date Referral: [facility] [address] [facility] [id number] [place] Referral Appointment Scheduled 10/20/2024 Patient Education: Patient Medication Summary Completed 10/10/2024 Appointment: Brian Munson WPtel: [address] [place], [place] [phone] [place] F/U 08/08/2024 Appointment: Brian Munson WPtel: [address] [place], [place] [phone] [place] F/U 07/11/2024 Referral: [facility]/Endocrinology WPtel: [address] [facility] 3 [id number] [place] Referral No Records Received 07/10/2024 Appointment: Brian Munson WPtel: [address] [place], [place] [phone] [place] AWV 02/08/2024 Appointment: Brian Munson WPtel: [address] [place], [place] [phone] F/U 01/11/2024 Appointment: Sandra Clark WPtel: [address] [place], [place] [phone] Telehealth Psych Follow Up 12/09 Appointment: Tapan Shirley WPtel: [address] [place], [place] [phone] [place] TCM 10/26/2022 Referral: [facility] WPtel: [address], [address] [id number] [place] Referral Records Received 09/21/2022 Appointment: Tapan Shirley WPtel: [address] [place] [address] [id number] [place] F/U 08/11/2022 Appointment: Tapan Shirley WPtel: [address] [facility] 300 [id number] [place] F/U 07/14/2022 Appointment: Tapan Shirley WPtel: [address] [facility] 300 [id number] [place] F/U 02/10/2022 Referral: [facility] WPtel: [address] [facility] [address] [id number] [place] Referral Completed 05/28/2021 Referral: General Cardiology [...] Sister Jyotsna involved in his care cell# [phone] Guardian: Giulia (tapan met in person 09/01/21), now has Lexii (same group as giulia)AWV 9..2023. Lab Schedule: /September*September (CBC with diff, [...] appointment 05.26.2024 with Jessa Webster MD at [facility]. Start Pioglitazone 15 mg QD. Stop Basaglar insulin. Increase Ozempic 2 mg once wkly. Continue Humalin R U-500 100 units with meals TID. FOLLOW UP 2 MONTHS. If BG >400 add 50 units to next scheduled dose of Humalin R U 500 insulin 06/12/2024
--- OUTSIDE RECORDS SUMMARY | 2024-10-19 19:08 | XMS_ITS | CCD ---
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 FlexTouch U-100 Insulin 100 unit/mL (3 mL) subcutaneous pen RxNorm: 891702 Inject 83 Unit(s) Subcutaneous BID 07/08/19 22 [...] test strip hydralazine 50 mg tablet RxNorm: 562180 Take 1 Tablet(s) Oral QID 05/05/20 21 022 Inactive venlafaxine ER 225 mg tablet,extended release 24 hr RxNorm: 923124 Take 1 Tablet(s) Oral QD 05/05/20 21 021 Inactive venlafaxine ER 225 mg tablet,extended release 24 hr RxNorm: 572806 Take 1 Tablet(s) Oral QD 05/05/20 21 022 Inactive isosorbide mononitrate ER 30 mg tablet,extended release 24 hr RxNorm: 145409 Take 1 Tablet(s) Oral QD 05/05/20 21 024 Inactive hydralazine 50 mg tablet RxNorm: 001043 Take 1 Tablet(s) Oral QID 05/05/20 21 021 Inactive aspirin 81 mg tablet,delayed release RxNorm: 697406 Take 1 Tablet(s) Oral QD 11/ 022 Inactive Vitamin D2 1,250 mcg (50,000 unit) capsule RxNorm: 7019575 Take 1 Capsule(s) Oral QW once a week x 12 weeks 03/31/20 022 Inactive Vitamin D2 1,250 mcg (50,000 unit) capsule RxNorm: 9291764 Take 1 Capsule(s) Oral QW once a week 03/31/20 021 Inactive Zetia 10 mg tablet RxNorm: 505292 Take 1 Tablet(s) Oral QD 03/31/20 024 Inactive Zetia 10 mg tablet RxNorm: 664269 Take 1 Tablet(s) Oral QD 03/31/20 021 Inactive hydralazine 25 mg tablet RxNorm: 413206 Take 1 Tablet(s) Oral QID 03/31/20 021 Inactive hydralazine 25 mg tablet RxNorm: 344219 Take 1 Tablet(s) Oral QID 03/31/20 021 Inactive hydralazine 10 mg tablet RxNorm: 292544 Take 1 Tablet(s) Oral QID 03/03/20 021 Inactive cephalexin 500 mg tablet RxNorm: 408252 Take 1 Tablet(s) Oral QID 02/27/20 021 Inactive cephalexin 500 mg tablet RxNorm: 607607 Take 1 Tablet(s) Oral QID 02/27/20 021 Inactive lisinopril 40 mg tablet RxNorm: 900517 Take 1 Tablet(s) Oral QD 02/11/20 023 Inactive Eliquis 5 mg tablet RxNorm: 6495090 Take 1 Tablet(s) Oral BID 01/05/20 21 025 Inactive Eliquis 5 mg tablet RxNorm: 2662486 Take 2 Tablet(s) Oral QD 01/01/20 21 021 Inactive Lyrica 50 mg capsule RxNorm: 216433 Take 1 Capsule(s) Oral QAM every morning 12/24/19 21 021 Inactive Lyrica 100 mg capsule RxNorm: 781103 Take 1 Capsule(s) Oral QHS every night at bedtime 12/24/19 21 021 Inactive clotrimazole 1 % topical cream RxNorm: 913204 Apply to right foot and toes Topical BID 12/04/19 21 023 Inactive metoprolol succinate ER 200 mg tablet,extended release 24 hr RxNorm: 716978 Take 1 Tablet(s) Oral QD 12/04/19 21 023 Inactive ciprofloxacin 500 mg tablet RxNorm: 305642 Take 1 Tablet(s) Oral QD 11/30/19 21 021 Inactive DX ofloxacin otic drops Accu-Chek Guide test strips RxNorm: USE 1 TO CHECK GLUCOSE 4 TIMES DAILY AND NEEDED 11/15/19 21 023 Inactive Blood Glucose Test strips RxNorm: Use 1 Test Strip QID at PRN 11/05/19 21 023 Inactive E11.42 lisinopril 30 mg tablet RxNorm: 074275 Take 1 Tablet(s) Oral QD 10/30/19 021 Inactive lisinopril 20 mg tablet RxNorm: 639579 Take 1 Tablet(s) Oral QD 10/23/19 21 021 Inactive lisinopril 20 mg tablet RxNorm: 072384 Take 1 Tablet(s) Oral QD 10/23/19 21 021 Inactive lisinopril 10 mg tablet RxNorm: 654879 Take 1 Tablet(s) Oral QD 10/02/19 21 021 Inactive icosapent ethyl 1 gram capsule RxNorm: 1240579 Take 2 Capsule(s) (2 gm) Oral BID with meals 09/12/19 21 024 Inactive Okay to dispense one 2gm tab if you have that available. icosapent ethyl 1 gram capsule RxNorm: 4254169 Take 2 Capsule(s) Oral BID 09/12/19 21 021 Inactive Okay to dispense one 2gm tab if you have that available. amlodipine 10 mg tablet RxNorm: 906787 Take 1 Tablet(s) Oral QD 09/04/19 21 021 Inactive aspirin 81 mg tablet,delayed release RxNorm: 807150 Take 1 Tablet(s) Oral QD 09/04/19 21 Inactive Levemir FlexTouch U-100 Insulin 100 unit/mL (3 mL) subcutaneous pen RxNorm: 174391 Inject 150 Unit(s) Subcutaneous BID 09/04/19 21 022 Inactive venlafaxine ER 150 mg tablet,extended release 24 hr RxNorm: 668111 Take 1 Tablet(s) Oral QD 09/04/19 Inactive clotrimazole-betame thasone 1 %-0.05 % topical cream RxNorm: 262709 Apply to rash on red area on left abdomen/chest Topical BID 08/10/19 21 Inactive amlodipine 5 mg tablet RxNorm: 165347 Take 1 Tablet(s) Oral QD 07/31/19 21 Inactive cephalexin 500 mg tablet RxNorm: 734710 Take 1 Tablet(s) Oral BID BID - Twice Daily 07/31/19 Inactive Start 08/01/20 pantoprazole 40 mg tablet,delayed release RxNorm: 074857 Take 1 Tablet(s) Oral QAM every morning 07/08/19 025 Inactive clopidogrel 75 mg tablet RxNorm: 301841 Take 1 Tablet(s) Oral QD 07/08/19 21 021 Inactive Blood Glucose Test strips RxNorm: Use 1 Test Strip QID at PRN 07/08/19 21 Inactive E11.42 senna 8.6 mg tablet RxNorm: 159232 Take 1 Tablet(s) Oral QD 07/08/19 025 Inactive Novolog Flexpen U-100 Insulin aspart 100 unit/mL (3 mL) subcutaneous RxNorm: 4051776 Administer per sliding scale Milliliter(s) Subcutaneous TID 151-200: 10 u; 201-250: 20 u; 251-300: 30 u; 301-350: 40 u; 351-400: 50 u. 07/08/19 21 022 Inactive lisinopril 5 mg tablet RxNorm: 618196 Take 1 Tablet(s) Oral QD 07/08/19 021 Inactive Novolog Flexpen U-100 Insulin aspart 100 unit/mL (3 mL) subcutaneous RxNorm: 9990865 Inject 85 Unit(s) Subcutaneous TID 07/08/19 21 022 Inactive pravastatin 80 mg tablet RxNorm: 107809 Take 1 Tablet(s) Oral QHS every night at bedtime 07/08/19 023 Inactive clotrimazole 1 % topical cream RxNorm: 023550 Apply to bilateral groin areas Topical BID 07/08/19 022 Inactive metoprolol succinate ER 200 mg tablet,extended release 24 hr RxNorm: 970603 Take 1 Tablet(s) Oral QD 07/08/19 21 021 Inactive Vitamin D3 25 mcg (1,000 unit) tablet RxNorm: 271395 Take 1 Tablet(s) Oral QD 07/08/19 021 Inactive isosorbide dinitrate 30 mg tablet RxNorm: 019175 Take 1 Tablet(s) Oral QD 07/08/19 021 Inactive carbamazepine 200 mg tablet RxNorm: 272407 Take 1 Tablet(s) Oral BID 07/08/19 21 025 Inactive Levemir FlexTouch U-100 Insulin 100 unit/mL (3 mL) subcutaneous pen RxNorm: 105809 Inject 140 Unit(s) Subcutaneous BID 07/08/19 021 Inactive torsemide 20 mg tablet RxNorm: 538758 Take 1 Tablet(s) Oral QD 07/08/19 21 023 Inactive venlafaxine 75 mg tablet RxNorm: 998286 Take 1 Tablet(s) Oral QD 07/08/19 021 Inactive acetaminophen 500 mg tablet RxNorm: 241740 Take 1 Tablet(s) Oral TID as needed for headache 06/18/19 021 Inactive acetaminophen 500 mg tablet RxNorm: 437283 Take 1 Tablet(s) Oral TID as needed for headache 06/18/19 21 021 Inactive Lyrica 100 mg capsule RxNorm: 334987 Take 1 Capsule(s) Oral QHS every night at bedtime 06/11/19 21 021 Inactive Lyrica 50 mg capsule RxNorm: 317574 Take 1 Capsule(s) Oral QAM every morning 06/10/19 21 021 Inactive hydrocortisone 2.5 % topical cream RxNorm: 627985 Apply to bilateral groin creases Topical BID 05/15/20 20 021 Inactive clotrimazole 1 % topical cream RxNorm: 968264 Apply to bilateral groin areas Topical BID 05/15/20 20 021 Inactive Lyrica 50 mg capsule RxNorm: 560156 Take 1 Capsule(s) Oral QAM every morning 05/14/20 20 020 Inactive Lyrica 100 mg capsule RxNorm: 370714 Take 1 Capsule(s) Oral QHS every night [...] Inactive Nystop 100,000 unit/gram topical powder RxNorm: 883583 Apply to abd folds, under breasts and L side of groin Topical BID x 14 days, then BID PRN 04/08/20 20 020 Inactive dx: yeast dermatitis Lyrica 100 mg capsule RxNorm: 824864 Take 1 Capsule(s) Oral QHS every night at bedtime 03/13/20 20 020 Inactive Lyrica 50 mg capsule RxNorm: 263458 Take 1 Capsule(s) Oral QAM every morning 03/13/20 20 020 Inactive ketoconazole 2 % shampoo RxNorm: 770416 Apply Topical two times a week with showers 03/11/20 20 024 Inactive cholecalciferol (vitamin D3) 50 mcg (2,000 unit) tablet RxNorm: 525108 Take 1 Tablet(s) Oral QD 03/11/20 20 021 Inactive Zetia 10 mg tablet RxNorm: 090408 Take 1 Tablet(s) Oral QD 03/07/20 021 Inactive Zetia 10 mg tablet RxNorm: 429072 Take 1 Tablet(s) Oral QD 03/07/20 20 Inactive Lyrica 50 mg capsule RxNorm: 228741 Take 1 Capsule(s) Oral QAM every morning 02/15/20 20 Inactive Lyrica 100 mg capsule RxNorm: 997315 Take 1 Capsule(s) Oral QHS every night at bedtime 02/15/20 Inactive Lyrica 100 mg capsule RxNorm: 878747 Take 1 Capsule(s) Oral QHS every night at bedtime 02/15/20 020 Inactive Lyrica 50 mg capsule RxNorm: 851103 Take 1 Capsule(s) Oral QAM every morning 02/15/20 Inactive loperamide 2 mg capsule RxNorm: 772828 Take 1 Capsule(s) Oral QID as needed 09/06/19 25 025 Inactive venlafaxine ER 75 mg capsule,extended release 24 hr RxNorm: 330709 Take 3 Capsule(s) Oral QD 06/12/19 22 023 Inactive polyethylene glycol 3350 17 gram/dose oral powder RxNorm: 428697 Take 17=1 capful Gram(s) Oral BID as needed mix with 4-8oz of liquid 06/12/19 22 024 Inactive icosapent ethyl 1 gram capsule RxNorm: 4620662 Take 2 Capsule(s) (2 gm) Oral BID with meals 10/07/19 23 023 Inactive Okay to dispense one 2gm tab if you have that available. Levemir FlexTouch U-100 Insulin 100 unit/mL (3 mL) subcutaneous pen RxNorm: 711177 Inject 80 Unit(s) Subcutaneous BID 07/14/19 23 023 Inactive metoprolol succinate ER 200 mg tablet,extended release 24 hr RxNorm: 031022 Take 1 Tablet(s) Oral QD 08/12/19 025 Inactive hydralazine 50 mg tablet RxNorm: 263875 Take 1 Tablet(s) Oral QID 08/12/19 025 Inactive Soft Touch Lancets RxNorm: miscellaneous 03/04/20 24 025 Inactive Novolog Flexpen U-100 Insulin aspart 100 unit/mL (3 mL) subcutaneous RxNorm: 1751720 Insert 30 Unit(s) Subcutaneous TID with meals [...] Planned Activity Notes Codes Status Date Referral: [facility] WPtel: [address] [id number] [place] Referral Appointment Scheduled 10/20/2024 Referral: [facility]/Endocrinology WPtel: [address] [facility] 3 [id number] [place] Referral No Records Received 07/10/2024 Referral: [facility] WPtel: [address] [id number] [place] Referral Records Received 09/21/2022 Referral: [facility] WPtel: [address] [id number] [place] Referral Completed 05/28/2021 Referral: General Cardiology [...] Sister Jyotsna involved in his care cell# [phone] Guardian: Giulia (tapan met in person 09/01/21), [...] [facility]. Start Pioglitazone 15 mg QD. Stop Basaglar insulin. Increase Ozempic 2 mg once wkly. Continue Humalin R U-500 100 units with meals TID. FOLLOW UP 2 MONTHS. If BG >400 add 50 units to next scheduled dose of Humalin R U 500 insulin 06/12/2024
--- OUTSIDE RECORDS SUMMARY | 2024-10-19 19:11 | XMS_ITS | CCD ---
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 Name Role Phone Harrison Durham Primary Care Provider Leona vailable Unavailable Chronic Care Management Unavaila ble Summary Purpose DataExchange Insurance Providers Payer name Policy type / Coverage type Covered constitution party ID Effective Begin Date Effective End Date Medicare [place] Part B [id number] Unknown Unknown [place] Medicare Part B [id number] Unknown Unknown Family history Sister Brittany Suggs Diagnosis Age At Onset No Family Disease Entered N/A Runs in the family Diagnosis Age At Onset No Known Diseases N/A Sister Blanka Mcduffie Diagnosis Age At Onset No Family Disease Entered N/A Social History Social History Element Codes Description Effec tive Dates Tobacco history SNOMED CT: 447420604 Never smoker 01/16 Sexually Active? Unknown No [...] Shelter 09/03/[address]: 748202591 No Alcohol Consum ption 09/02/2020 Allergies, Adverse Reactions, Alerts Substance Reaction Codes Entered Date Inactivated Date Status * NO KNOWN FOOD ALLERGIES Unknown 07/13/2023 No Inactive Date Active LISINOPRIL RxNorm: 37495 02/12/2020 No Inactive Da te Active Metformin HCl Unknown 02/12/2020 No Inactive Cristiano e Active * NO KNOWN ENVIRONMENTAL ALLERGIES Unknown 07/13/2023 No Inactive Date Active Problems Condition Codes Effective Dates Condition St atus Advance care planning ICD-10: Z71.89 ICD-9: V65.49 05/08/2024 Active Hemorrhoids ICD-10: K64.9 ICD-9: 455.6 05/08/2024 Active Hyperlipidemia associated wi th type 2 diabetes mellitus ICD-10: E11.69 ICD-9: 250.80 05/08/2024 Active Hypertensive heart disease w ithout heart failure ICD-10: I11.9 ICD-9: 402.90 05/08/2024 Active Hypokalemia ICD-10: E87.6 ICD-9: 276.8 05/08/2024 Active Stage 2 chronic kidney disea se due to type 2 diabetes mellitus ICD-10: E11.22 ICD-9: 250.40 05/08/2024 Active Type 2 diabetes mellitus wit h diabetic polyneuropathy, with long-term current use of insulin ICD-10: E11.42 ICD-9: 250.60 05/08/2024 Active Onychogryposis ICD-10: L60.2 ICD-9: 703.8 04/11/2024 Active BMI 60.0-69.9, adult ICD-10: Z68.44 ICD-9: V85.44 03/07/2024 Active Diabetic neuropathy associat ed with type 2 diabetes mellitus ICD-10: E11.40 ICD-9: 250.60 03/07/2024 Active Low back pain ICD-10: M54.50 ICD-9: 724.2 03/07/2024 Active Paraparesis of both lower limbs ICD-10: G82.20 ICD-9: 344.1 03/07/2024 Active Physical deconditioning ICD-10: R53.81 ICD-9: 799.3 03/07/2024 Active PVD (peripheral vascular disease) ICD-10 : I73.9 ICD-9: 443.9 03/07/2024 Active Advanced care planning - to [...] 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 Other intermediate (current) dr ug therapy ICD-10: Z79.899 [...] 09/07/2023 Resolved Coronary artery disease invo lving campo coronary artery of campo heart, angina presence unspecified ICD-10: I25.10 ICD-9: [...] Instructions nystatin 100,000 unit/gram topical powder RxNorm: 574603 Apply 1 Application Topical BID as needed abdominal/breast /groin folds 05/24/19 25 026 Active pregabalin 100 mg capsule RxNorm: 684431 Take 1 Capsule(s) Oral QAM every morning 05/22/19 25 025 Inactive nystatin 100,000 unit/gram topical powder RxNorm: 986799 Apply 1 Application Topical BID as needed abdominal/breast /groin folds 04/11/20 24 024 Inactive chlorthalidone 25 mg tablet RxNorm: 168766 Take 1 Tablet(s) Oral QAM every morning 04/06/20 24 No Stop Date Active pregabalin 150 mg capsule RxNorm: 183345 Take 1 Capsule(s) Oral QHS every night at bedtime 03/31/20 Inactive Vascepa 1 gram capsule RxNorm: 6256834 Take 2 Capsule(s) Oral BID 03/30/20 Active rosuvastatin 40 mg tablet RxNorm: 135033 1 TAB ORALLY EVERY EVENING (DX:CORONARY ARTERY DISEASE) 03/28/20 No Stop Date Active venlafaxine ER 75 mg capsule,extended release 24 hr RxNorm: 994284 3 CAPS (225MG) ORALLY DAILY (DX: MOOD DISORDER) 03/28/20 No Stop Date Active pregabalin 100 mg capsule RxNorm: 668924 Take 1 Capsule(s) Oral QAM every morning 03/20/20 Inactive cholecalciferol (vitamin D3) 1,250 mcg (50,000 unit) capsule RxNorm: 455939 Take 1 Capsule(s) Oral QW once a [...] Insulin 100 unit/mL (3 mL) subcutaneous RxNorm: 9876184 Inject 40 Unit(s) Subcutaneous BID 03/07/20 025 Inactive Please dispense one month supply. Humulin R U-500 (Concentrated) Insulin 500 unit/mL subcutaneous soln RxNorm: 313777 Inject 100 Unit(s) Subcutaneous AC before meals [...] PRN) to be use with new Accu [place] meter 03/04/20 Inactive ok to substitute with any covered alternative test strip FreeStyle Chema 2 Sensor kit RxNorm: Use UD as directed 03/02/20 Inactive FreeStyle Chema 2 Sensor kit RxNorm: Use UD as directed 03/02/20 Inactive Pen Needle 30 gauge x 516 RxNorm: Pen(s) Use 1 needle as directed TID 03/02/20 Inactive nystatin 100,000 unit/gram topical powder RxNorm: 054935 Apply 1 Application Topical BID as needed [...] (Concentrated) Insulin 500 unit/mL subcutaneous soln RxNorm: 787910 Inject 100 Unit(s) Subcutaneous TID 02/17/20 24 024 Inactive Humulin R U-500 (Concentrated) Insulin 500 unit/mL subcutaneous soln RxNorm: 946403 Inject 100 Unit(s) Subcutaneous TID 02/10/20 24 024 Inactive Radha Enrique U-100 Insulin 100 unit/mL (3 mL) subcutaneous RxNorm: 4858652 Inject 30 Unit(s) Subcutaneous BID 02/10/20 24 024 Inactive Please dispense one month supply. pregabalin 100 mg capsule RxNorm: 612213 Take 1 Capsule(s) Oral QAM every morning 02/07/20 24 024 Inactive isosorbide mononitrate ER 60 mg tablet,extended release 24 hr RxNorm: 874633 Take 1 Tablet(s) Oral QD 02/01/20 24 025 Active aripiprazole 15 mg tablet RxNorm: 351329 Take 1/2 Tablet(s) Oral QD 02/01/20 24 025 Active torsemide 20 mg tablet RxNorm: 192881 1 TAB ORALLY DAILY (DX: EDEMA) 01/27/20 No Stop Date Active potassium chloride ER 20 mEq tablet,extended release(part/cryst) RxNorm: 8275703 2 TABS (40MEQ) ORALLY TWICE DAILY (DX: HYPOKALEMIA) 01/27/20 24 025 Inactive cephalexin 500 mg capsule RxNorm: 324849 Take 1 Capsule(s) Oral QID 12/17/19 24 024 Inactive cephalexin 500 mg capsule RxNorm: 488512 Take 1 Capsule(s) Oral QID 12/17/19 24 024 Inactive acetaminophen 500 mg tablet RxNorm: 608749 (MAX APAP:4GM/24HR) Take 1 Tablet(s) Oral TID as needed for pain 12/10/19 24 024 Inactive torsemide 20 mg tablet RxNorm: 753970 Take 1 Tablet(s) Oral QD 10/26/19 24 025 Inactive potassium chloride ER 20 mEq tablet,extended release RxNorm: 19800522 Take 2 Tablet(s) Oral BID 10/26/19 24 025 Inactive torsemide 20 mg tablet RxNorm: 603029 Take 1 Tablet(s) Oral QD 10/26/19 24 024 Inactive potassium chloride ER 20 mEq tablet,extended release RxNorm: 19800522 Take 2 Tablet(s) Oral BID 10/26/19 24 Inactive Artificial Tears (PF) 0.1 %-0.3 % drops in a dropperette RxNorm: 354481 Apply 1-2 Drop(s) Both eyes BID as needed 09/28/19 24 025 Inactive erythromycin 5 mg/gram (0.5 %) eye ointment RxNorm: 049657 Apply 1 Application Both eyes QHS every night at bedtime Instill ~1 cm ribbon into affected eye 09/28/19 24 024 Inactive Artificial Tears (PF) 0.1 %-0.3 % drops in a dropperette RxNorm: 305134 Apply 1-2 Drop(s) Both eyes BID as needed 09/28/19 24 024 Inactive erythromycin 5 mg/gram (0.5 %) eye ointment RxNorm: 699494 Apply 1 Application Both eyes QHS every night at bedtime Instill ~1 cm ribbon into affected eye 09/28/19 24 024 Inactive acetaminophen 500 mg tablet RxNorm: 658635 (MAX APAP:4GM/24HR) Take 1 Tablet(s) Oral TID as needed for pain 09/24/19 24 024 Inactive carvedilol 25 mg tablet RxNorm: 576529 Take 1 Tablet(s) Oral QD 09/08/19 24 No Stop Date Active pregabalin 100 mg capsule RxNorm: 796970 Take 1 Capsule(s) Oral QAM every morning 09/07/19 24 024 Inactive ezetimibe 10 mg tablet RxNorm: 160937 Take 1 Tablet(s) Oral QD 07/13/19 24 025 Inactive bisacodyl 10 mg rectal suppository RxNorm: 695839 Insert 1 Suppository Rectal QD as needed 07/13/19 24 No Stop Date Active polyethylene glycol 3350 17 gram/dose oral powder RxNorm: 231012 Take 17 Gram(s) Oral BID as needed mix in 4-8ox water 07/13/19 24 025 Inactive ketoconazole 2 % shampoo RxNorm: 212472 Apply 1 Application Topical UD as directed 02/27/20 24 No Stop Date Active Ozempic 1 mg/dose (4 mg/3 mL) subcutaneous pen injector RxNorm: 2821794 Inject 1 Milligram(s) Subcutaneous QW once a week 07/13/19 No Stop Date Active Guaifenesin AC 10 mg-100 mg/5 mL oral liquid RxNorm: 664652 Take 10 Milliliter(s) Oral Q4H every four hours as needed 07/13/19 No Stop Date Active ammonium lactate 12 % topical cream RxNorm: 442991 Apply 1 Application Topical BID 07/13/19 24 025 Inactive hydrocortisone 2.5 % topical cream RxNorm: 662244 Apply 1 Application Topical BID as needed 07/13/19 No Stop Date Active rosuvastatin 20 mg sprinkle capsule RxNorm: 6118964 Take 1 Capsule(s) Oral QD 07/13/19 24 025 Inactive rosuvastatin 40 mg tablet RxNorm: 849925 Take 1 Tablet(s) Oral QPM every evening 07/13/19 24 024 Inactive aripiprazole 15 mg tablet RxNorm: 291687 Take 1/2 Tablet(s) Oral QD 07/13/19 24 024 Inactive isosorbide mononitrate ER 60 mg tablet,extended release 24 hr RxNorm: 590849 Take 1 Tablet(s) Oral QD 07/13/19 24 024 Inactive Vascepa 1 gram capsule RxNorm: 0873125 Take 2 Capsule(s) Oral BID 07/13/19 24 024 Inactive venlafaxine ER 75 mg capsule,extended release 24 hr RxNorm: 607929 Take 3 Capsule(s) Oral QD 07/13/19 24 024 Inactive Basaglar KwikPen U-100 Insulin 100 unit/mL (3 mL) subcutaneous RxNorm: 0870363 Inject 30U SubQ twice daily 07/07/19 24 024 Inactive Please dispense one month supply. Basaglar KwikPen U-100 Insulin 100 unit/mL (3 mL) subcutaneous RxNorm: 0934060 Inject 30U SubQ twice daily 07/07/19 24 024 Inactive Please dispense one month supply. pregabalin 150 mg capsule RxNorm: 401946 Take 1 Capsule(s) Oral QHS every night at bedtime 07/05/19 24 024 Inactive pregabalin 150 mg capsule RxNorm: 378188 Take 1 Capsule(s) Oral QHS every night at bedtime 07/05/19 24 024 Inactive polyethylene glycol 3350 17 gram/dose oral powder RxNorm: 868910 Take 1 Packet Oral QD as needed (1 packet = 17g) mix with 4-8oz of liquid 06/15/19 24 024 Inactive bisacodyl 10 mg rectal suppository RxNorm: 907559 Insert one suppository per rectum once daily as needed for constipation 06/15/19 024 Inactive bisacodyl 10 mg rectal suppository RxNorm: 810530 Insert one suppository per rectum once daily as needed for constipation 06/15/19 024 Inactive pregabalin 100 mg capsule RxNorm: 958753 Take 1 Capsule(s) Oral QAM every morning 04/27/20 23 024 Inactive Levemir FlexPen 100 unit/mL (3 mL) solution subcutaneous insulin pen RxNorm: 488846 Inject 30 Unit(s) Subcutaneous BID 04/27/20 024 Inactive rosuvastatin 40 mg tablet RxNorm: 376314 Take 1 Tablet(s) Oral QPM every evening 04/16/20 024 Inactive D/C rosuvastatin 20mg venlafaxine ER 75 mg capsule,extended release 24 hr RxNorm: 548610 Take 3 Capsule(s) Oral QD 04/14/20 23 023 Inactive pregabalin 100 mg capsule RxNorm: 025902 Take 1 Capsule(s) Oral QAM every morning [...] strip clotrimazole 1 % topical cream RxNorm: 185869 Take apply topically to abdominal folds twice daily for 14 days 03/12/20 024 Inactive Ozempic 1 mg/dose (4 mg/3 mL) subcutaneous pen injector RxNorm: 3407631 Inject 1 Milligram(s) Subcutaneous QW once a week 03/11/20 023 Inactive rosuvastatin 20 mg tablet RxNorm: 349272 Take 1 Tablet(s) Oral QD 02/26/20 023 Inactive d/c pravastatin 80mg Ozempic 1 mg/dose (4 mg/3 mL) subcutaneous pen injector RxNorm: 7083954 Inject 1 Milligram(s) Subcutaneous QW once a week 02/20/20 023 Inactive pregabalin 150 mg capsule RxNorm: 921096 Take 1 Capsule(s) Oral HS at bed time 02/19/20 23 023 Inactive pregabalin 100 mg capsule RxNorm: 694988 Take 1 Capsule(s) Oral QAM every morning 02/18/20 23 023 Inactive venlafaxine ER 75 mg capsule,extended release 24 hr RxNorm: 568192 Take 3 Capsule(s) Oral QD 02/04/20 23 023 Inactive FreeStyle Chema 2 Sensor kit RxNorm: use as directed 02/04/20 23 023 Inactive FreeStyle Chema 2 Sensor kit RxNorm: use as directed 02/04/20 23 024 Inactive fluconazole 150 mg tablet RxNorm: 605892 Take 1 Tablet(s) Oral on day 3 and on day 6 02/03/20 23 024 Inactive venlafaxine ER 150 mg capsule,extended release 24 hr RxNorm: 660412 Take 1 Capsule(s) Oral QD 02/03/20 23 023 Inactive chlorthalidone 25 mg tablet RxNorm: 362997 Take 1 Tablet(s) Oral QAM every morning 02/03/20 23 024 Inactive acetaminophen 500 mg tablet RxNorm: 788683 1 TABLET ORALLY 3 TIMES DAILY (MAX APAP:4GM/24HR) 12/15/19 23 023 Inactive clotrimazole 1 % topical cream RxNorm: 817957 apply 1g topically to top of feet and in between toes BID 12/09/19 23 025 Inactive potassium chloride ER 20 mEq tablet,extended release RxNorm: 358181 Take 1 Tablet(s) Oral BID 12/09/19 024 Inactive d/c 20mEq once daily (sent from hospital) nystatin 100,000 unit/gram topical powder RxNorm: 581523 APPLY TO AFFECTED AREAS TOPICALLY 2 TIMES DAILY 11/21/19 23 023 Inactive Nystop 100,000 unit/gram topical powder RxNorm: 392970 Apply to abd folds, under breasts and L side of groin Topical BID x 14 days, then BID PRN 11/20/19 23 023 Inactive dx: yeast dermatitis [place] Ultra Strength 4 %-30 %-10 % topical cream RxNorm: 456992 Apply 1 Gram(s) Topical QID PRN to feet and legs for neuropathic pain 11/11/19 23 024 Inactive clotrimazole 1 % topical cream RxNorm: 275874 Apply 1/2 Gram(s) Topical BID Apply to affected areas of groin, periarea, and abdominal topically 2 times daily 11/10/19 23 023 Inactive hydrocortisone 2.5 % topical cream RxNorm: 671592 Apply 1/2 Gram(s) Topical BID as needed 11/10/19 024 Inactive Levemir FlexPen 100 unit/mL (3 mL) solution subcutaneous insulin pen RxNorm: 747119 Inject 30 Unit(s) Subcutaneous BID 10/07/19 23 023 Inactive Humulin R U-500 (Concentrated) Insulin 500 unit/mL subcutaneous soln RxNorm: 839026 Inject 100 Unit(s) Subcutaneous TID 10/07/19 23 024 Inactive Ozempic 0.25 mg or 0.5 mg (2 mg/3 mL) subcutaneous pen injector RxNorm: 5855586 Inject 1/2 Milligram(s) Subcutaneous QW once a week 10/07/19 23 024 Inactive aripiprazole 15 mg tablet RxNorm: 621388 / TAB (7.5MG) ORALLY DAILY (DX:MAJOR DEPRESSIVE DISORDER) 09/23/19 23 023 Inactive Accu-Chek Guide test strips RxNorm: Use 1 Test Strip QID 09/15/19 23 023 Inactive ok to substitute with any covered alternative test strip Lancets,Thin 28 gauge RxNorm: Use 1 as directed QID 09/15/19 23 023 Inactive torsemide 20 mg tablet RxNorm: 995347 Take 1 Tablet(s) Oral BID 09/09/19 23 024 Inactive d/c once daily dosing carvedilol 25 mg tablet RxNorm: 453756 Take 1 Tablet(s) Oral QD 08/25/19 23 024 Inactive pregabalin 150 mg capsule RxNorm: 380393 1 Capsule(s) Oral HS at bed time 08/18/19 23 023 Inactive pregabalin 100 mg capsule RxNorm: 168687 1 Capsule(s) Oral QAM every morning 08/18/19 23 023 Inactive carvedilol 25 mg tablet RxNorm: 854736 1 Tablet(s) Oral QD 07/28/19 23 023 Inactive lisinopril 20 mg tablet RxNorm: 330476 Give 1 Tablet(s) Oral QD 07/28/19 23 023 Inactive Lyrica 150 mg capsule RxNorm: 908189 Take 1 Capsule(s) Oral QHS every night at bedtime 07/19/19 23 023 Inactive d/c 100mg dose Diflucan 150 mg tablet RxNorm: 275161 Take 1 Tablet(s) Oral QD repeat on day 3 and 6 07/19/19 23 023 Inactive pregabalin 100 mg capsule RxNorm: 310001 Take 1 Capsule(s) Oral QAM every morning 07/19/19 23 023 Inactive gatifloxacin 0.5 % eye drops RxNorm: 401836 Instill 1 Drop(s) as directed TID Instill 1 drop in to affected eye(s) starting 1 day prior to surgery and continue until gone (do not exceed 4 weeks). 07/13/19 23 023 Inactive carvedilol 25 mg tablet RxNorm: 471217 2 Tablet(s) Oral BID 07/13/19 023 Inactive Humulin R Regular U-100 Insulin 100 unit/mL injection solution RxNorm: 105205 85 Unit(s) Injection TID 07/13/19 23 023 Inactive ketorolac 0.5 % eye drops RxNorm: 347420 Instill 1 Drop(s) as directed QID Instill 1 drop into affected eye(s) 4 times daily starting 1 day prior to surgery and continue until gone (do not exceed 4 weeks). 07/13/19 023 Inactive Diflucan 150 mg tablet RxNorm: 062628 Take 1 Tablet(s) Oral QD repeat on day 3 and 6 06/30/19 023 Inactive Accu-Chek Guide test strips RxNorm: Use 1 Test Strip QID Use 1 test strip to monitor blood glucose 4 times daily and as needed. Dx:E11.42. 06/23/19 23 023 Inactive ok to substitute with any covered alternative test strip dextromethorphan-gu aifenesin 10 mg-100 mg/5 mL oral liquid RxNorm: 790612 Take 10 Milliliter(s) Oral every 4 hours as needed for cough 06/19/19 23 023 Inactive dextromethorphan-gu aifenesin 10 mg-100 mg/5 mL oral liquid RxNorm: 506053 Take 10 Milliliter(s) Oral every 4 hours as needed for cough 06/19/19 23 023 Inactive Lyrica 150 mg capsule RxNorm: 330600 Take 1 Capsule(s) Oral QHS every night at bedtime 06/18/19 23 023 Inactive d/c 100mg dose aripiprazole 15 mg tablet RxNorm: 492870 /2 TAB (7.5MG) ORALLY DAILY (DX:MAJOR DEPRESSIVE DISORDER) 06/05/19 23 023 Inactive pregabalin 100 mg capsule RxNorm: 146695 1 Capsule(s) Oral QAM every morning 06/02/19 023 Inactive Banophen 50 mg capsule RxNorm: 2823504 Take 1 Capsule(s) Oral Q6H every 6 hours as needed 05/19/19 No Stop Date Active Novolog Flexpen U-100 Insulin aspart 100 unit/mL (3 mL) subcutaneous RxNorm: 4124694 Inject 10 Unit(s) Subcutaneous QHS every night at bedtime with nighttime snack 04/08/20 022 Inactive Novolog Flexpen U-100 Insulin aspart 100 unit/mL (3 mL) subcutaneous RxNorm: 0970876 Inject 42 Unit(s) Subcutaneous TID in addition to sliding scale 04/08/20 Inactive d/c 36u albuterol sulfate HFA 90 mcg/actuation aerosol inhaler RxNorm: 8386642 Take 2 Puff(s) Inhalation Q4H every four hours as needed as needed for SOB, cough, or wheezing 04/07/20 030 Active Banophen 50 mg capsule RxNorm: 3964182 Take 1 Capsule(s) Oral Q6H every 6 hours as needed 04/06/20 023 Inactive diphenhydramine 50 mg tablet RxNorm: 1598501 Take 1 Tablet(s) Oral Q6H every 6 hours as needed 04/06/20 22 022 Inactive diphenhydramine 50 mg tablet RxNorm: 5972447 1 Tablet(s) Oral Q6H every 6 hours as needed 04/06/20 022 Inactive Abilify 15 mg tablet RxNorm: 418932 1/2 Tablet(s) Oral QD 03/10/20 22 023 Inactive Shingrix (PF) 50 mcg/0.5 mL intramuscular suspension, kit RxNorm: 9499221 Administer 1/2 Milliliter(s) Intramuscular QD one time shingrix step 2 ( step 1 given 11/04/21) WITH needle - Nursing please administer upon arrival and once administered post a bridge message with date of administration, entertainment usher, expiration date, and lot# so we can update [facility] 02/18/20 22 022 Inactive dispense with needle Shingrix (PF) 50 mcg/0.5 mL intramuscular suspension, kit RxNorm: 9734984 Administer 1/2 Milliliter(s) Intramuscular QD one time shingrix step 2 ( step 1 given 11/04/21) WITH needle - Nursing please administer upon arrival and once administered post a bridge message with date of administration, entertainment usher, expiration date, and lot# so we can update [facility] 02/18/20 22 022 Inactive dispense with needle polyethylene glycol 3350 17 gram/dose oral powder RxNorm: 450142 Take 17=1 capful Gram(s) Oral QD mix with 4-8oz of liquid 01/08/20 22 025 Inactive take this in addition to BID prn order Lyrica 100 mg capsule RxNorm: 114130 Take 1 Capsule(s) Oral QAM every morning 01/08/20 22 022 Inactive d/c 50mg dose acetaminophen 500 mg tablet RxNorm: 005896 Take 1 Tablet(s) Oral TID 01/08/20 22 022 Inactive d/c PRN order Lyrica 150 mg capsule RxNorm: 852306 Take 1 Capsule(s) Oral QHS every night at bedtime 01/08/20 22 023 Inactive d/c 100mg dose Abilify 5 mg tablet RxNorm: 004701 Take 1 Tablet(s) Oral QD take 1 tab po QD #30 refill 5 dx: MDD 12/12/19 22 022 Inactive Abilify 5 mg tablet RxNorm: 786400 Take 1 Tablet(s) Oral QD take 1 tab po QD #30 refill 5 dx: MDD 12/12/19 22 022 Inactive Novolog Flexpen U-100 Insulin aspart 100 unit/mL (3 mL) subcutaneous RxNorm: 2931953 Inject 42 Unit(s) Subcutaneous TID in addition to sliding scale 12/10/19 22 022 Inactive d/c 36u chlorthalidone 25 mg tablet RxNorm: 049026 Take 1 Tablet(s) Oral QAM every morning 12/10/19 22 023 Inactive pregabalin 50 mg capsule RxNorm: 767674 Take 1 Capsule(s) Oral QAM every morning 11/12/19 22 022 Inactive tetanus-diphtheria toxoids-Td 2 Lf unit-2 Lf unit/0.5 mL IM suspension RxNorm: 139 Take 0.5 Miscellaneous Intramuscular 11/12/19 22 022 Inactive need tdap - nursing to administer upon arrival pregabalin 50 mg capsule RxNorm: 541824 Take 1 Capsule(s) Oral QAM every morning 10/16/19 22 022 Inactive pregabalin 50 mg capsule RxNorm: 808735 Take 1 Capsule(s) Oral QAM every morning 10/16/19 22 022 Inactive pregabalin 50 mg capsule RxNorm: 178884 1 Capsule(s) Oral QAM every morning 10/15/19 22 022 Inactive Shingrix (PF) 50 mcg/0.5 mL intramuscular suspension, kit RxNorm: 2119416 Administer 1/2 Milliliter(s) Intramuscular one time Nursing please administer upon arrival and once administered post a bridge message with date of administration, entertainment usher, expiration date, and lot# so we can update [facility]. 10/09/19 22 022 Inactive shingrix step 1 Shingrix (PF) 50 mcg/0.5 mL intramuscular suspension, kit RxNorm: 5895416 Administer 1/2 Milliliter(s) Intramuscular one time Nursing please administer upon arrival and once administered post a bridge message with date of administration, entertainment usher, expiration date, and lot# so we can [...] aspart 100 unit/mL (3 mL) subcutaneous RxNorm: 4099491 Inject 10 Unit(s) Subcutaneous QHS every night at bedtime with nighttime snack 10/08/19 22 Inactive Shingrix (PF) 50 mcg/0.5 mL intramuscular suspension, kit RxNorm: 9769804 ADMINISTER 2-DOSE SERIES PER CDC GUIDELINES 10/08/19 22 Active Shingrix (PF) 50 mcg/0.5 mL intramuscular suspension, kit RxNorm: 6124368 ADMINISTER 2-DOSE SERIES PER CDC GUIDELINES 10/08/19 22 Inactive Novolog Flexpen U-100 Insulin aspart 100 unit/mL (3 mL) subcutaneous RxNorm: 0870564 Inject 36 Unit(s) Subcutaneous TID in addition to sliding scale 10/08/19 Inactive cholecalciferol (vitamin D3) 1,250 mcg (50,000 unit) capsule RxNorm: 760038 Take 1 Capsule(s) Oral QW once a week 10/08/19 Inactive Novofine Autocover 30 gauge x 1/3 needle RxNorm: Use 1 Miscellaneous UD as directed Use 1 needle as directed to administer insulin 5 times a day Dx:E11.42. 10/03/19 22 Inactive ok to substitute with any covered alternative pen needle benzoyl peroxide 10 % topical cleanser RxNorm: 564849 Apply 1 Application Topical QD apply to face, wash rinse and dry once daily (may change to QOD if drying) 08/19/19 22 022 Inactive (%covered by insurance) #60ml refill 11 dx: acne benzoyl peroxide 10 % topical cleanser RxNorm: 306272 Apply 1 Application Topical QD apply to face, wash rinse and dry once daily (may change to QOD if drying) 08/19/19 22 022 Inactive (%covered by insurance) #60ml refill 11 dx: acne benzoyl peroxide 10 % topical cleanser RxNorm: 964449 Apply 1 Application Topical QD apply to face, wash rinse and dry once daily (may change to QOD if drying) 08/19/19 22 022 Inactive (%covered by insurance) #60ml refill 11 dx: acne Lyrica 50 mg capsule RxNorm: 930981 Take 1 Capsule(s) Oral QAM every morning Take 1 capsule by mouth once daily 08/19/19 22 Inactive benzoyl peroxide 10 % topical cleanser RxNorm: 008550 Apply 1 Application Topical QD apply to face, wash rinse and dry once daily (may change to QOD if drying) 08/19/19 22 Inactive (%covered by insurance) #60ml refill 11 dx: acne Lyrica 100 mg capsule RxNorm: 544364 Take 1 Capsule(s) Oral QHS every night at bedtime Take 1 capsule by mouth once daily at bedtime 08/19/19 022 Inactive Lyrica 100 mg capsule RxNorm: 218467 Take 1 Capsule(s) Oral QHS every night at bedtime Take 1 capsule by mouth once daily at bedtime 08/16/19 22 Inactive Lyrica 50 mg capsule RxNorm: 291939 Take 1 Capsule(s) Oral QAM every morning Take 1 capsule by mouth once daily 08/16/19 22 Inactive Levemir FlexTouch U-100 Insulin 100 unit/mL (3 mL) subcutaneous pen RxNorm: 338154 Inject 86 Unit(s) Subcutaneous BID 08/05/19 22 022 Inactive d/c 83units BID Lyrica 100 mg capsule RxNorm: 317976 Take 1 Capsule(s) Oral QHS every night at bedtime Take 1 capsule by mouth once daily at bedtime 07/14/19 22 022 Inactive Lyrica 50 mg capsule RxNorm: 514623 Take 1 Capsule(s) Oral QAM every morning Take 1 capsule by mouth once daily 07/14/19 22 022 Inactive Levemir FlexTouch U-100 Insulin 100 unit/mL (3 mL) subcutaneous pen RxNorm: 819390 Inject 83 Unit(s) Subcutaneous BID 07/08/19 22 [...] test strip hydralazine 50 mg tablet RxNorm: 139695 Take 1 Tablet(s) Oral QID 05/05/20 21 022 Inactive venlafaxine ER 225 mg tablet,extended release 24 hr RxNorm: 874595 Take 1 Tablet(s) Oral QD 05/05/20 21 021 Inactive venlafaxine ER 225 mg tablet,extended release 24 hr RxNorm: 334615 Take 1 Tablet(s) Oral QD 05/05/20 21 022 Inactive isosorbide mononitrate ER 30 mg tablet,extended release 24 hr RxNorm: 624548 Take 1 Tablet(s) Oral QD 05/05/20 21 024 Inactive hydralazine 50 mg tablet RxNorm: 624619 Take 1 Tablet(s) Oral QID 12 021 Inactive aspirin 81 mg tablet,delayed release RxNorm: 376917 Take 1 Tablet(s) Oral QD 03/31/20 022 Inactive Vitamin D2 1,250 mcg (50,000 unit) capsule RxNorm: 0955227 Take 1 Capsule(s) Oral QW once a week x 12 weeks 03/31/20 022 Inactive Vitamin D2 1,250 mcg (50,000 unit) capsule RxNorm: 5971276 Take 1 Capsule(s) Oral QW once a week 03/31/20 021 Inactive Zetia 10 mg tablet RxNorm: 393406 Take 1 Tablet(s) Oral QD 03/31/20 024 Inactive Zetia 10 mg tablet RxNorm: 933464 Take 1 Tablet(s) Oral QD 03/31/20 021 Inactive hydralazine 25 mg tablet RxNorm: 199814 Take 1 Tablet(s) Oral QID 03/31/20 021 Inactive hydralazine 25 mg tablet RxNorm: 892180 Take 1 Tablet(s) Oral QID 03/31/20 021 Inactive hydralazine 10 mg tablet RxNorm: 874644 Take 1 Tablet(s) Oral QID 03/03/20 021 Inactive cephalexin 500 mg tablet RxNorm: 386916 Take 1 Tablet(s) Oral QID 02/27/20 021 Inactive cephalexin 500 mg tablet RxNorm: 737751 Take 1 Tablet(s) Oral QID 02/27/20 021 Inactive lisinopril 40 mg tablet RxNorm: 764670 Take 1 Tablet(s) Oral QD 02/11/20 21 023 Inactive Eliquis 5 mg tablet RxNorm: 7338429 Take 1 Tablet(s) Oral BID 01/05/20 21 025 Inactive Eliquis 5 mg tablet RxNorm: 8546410 Take 2 Tablet(s) Oral QD 01/01/20 21 021 Inactive Lyrica 50 mg capsule RxNorm: 162724 Take 1 Capsule(s) Oral QAM every morning 12/24/19 21 021 Inactive Lyrica 100 mg capsule RxNorm: 664576 Take 1 Capsule(s) Oral QHS every night at bedtime 12/24/19 21 021 Inactive clotrimazole 1 % topical cream RxNorm: 372869 Apply to right foot and toes Topical BID 12/04/19 21 023 Inactive metoprolol succinate ER 200 mg tablet,extended release 24 hr RxNorm: 984419 Take 1 Tablet(s) Oral QD 12/04/19 21 023 Inactive ciprofloxacin 500 mg tablet RxNorm: 317786 Take 1 Tablet(s) Oral QD 11/30/19 21 021 Inactive DX ofloxacin otic drops Accu-Chek Guide test strips RxNorm: USE 1 TO CHECK GLUCOSE 4 TIMES DAILY AND NEEDED 11/15/19 023 Inactive Blood Glucose Test strips RxNorm: Use 1 Test Strip QID at PRN 11/05/19 21 023 Inactive E11.42 lisinopril 30 mg tablet RxNorm: 990912 Take 1 Tablet(s) Oral QD 10/30/19 021 Inactive lisinopril 20 mg tablet RxNorm: 073646 Take 1 Tablet(s) Oral QD 10/23/19 21 021 Inactive lisinopril 20 mg tablet RxNorm: 181049 Take 1 Tablet(s) Oral QD 10/23/19 21 021 Inactive lisinopril 10 mg tablet RxNorm: 382488 Take 1 Tablet(s) Oral QD 10/02/19 21 021 Inactive icosapent ethyl 1 gram capsule RxNorm: 9741416 Take 2 Capsule(s) (2 gm) Oral BID with meals 09/12/19 024 Inactive Okay to dispense one 2gm tab if you have that available. icosapent ethyl 1 gram capsule RxNorm: 8588972 Take 2 Capsule(s) Oral BID 09/12/19 21 021 Inactive Okay to dispense one 2gm tab if you have that available. amlodipine 10 mg tablet RxNorm: 827063 Take 1 Tablet(s) Oral QD 09/04/19 021 Inactive aspirin 81 mg tablet,delayed release RxNorm: 828562 Take 1 Tablet(s) Oral QD 09/04/19 21 021 Inactive Levemir FlexTouch U-100 Insulin 100 unit/mL (3 mL) subcutaneous pen RxNorm: 505870 Inject 150 Unit(s) Subcutaneous BID 09/04/19 022 Inactive venlafaxine ER 150 mg tablet,extended release 24 hr RxNorm: 814486 Take 1 Tablet(s) Oral QD 09/04/19 21 021 Inactive clotrimazole-betame thasone 1 %-0.05 % topical cream RxNorm: 186798 Apply to rash on red area on left abdomen/chest Topical BID 08/10/19 21 021 Inactive amlodipine 5 mg tablet RxNorm: 491276 Take 1 Tablet(s) Oral QD 07/31/19 021 Inactive cephalexin 500 mg tablet RxNorm: 008753 Take 1 Tablet(s) Oral BID BID - Twice Daily 07/31/19 021 Inactive Start 08/01/20 pantoprazole 40 mg tablet,delayed release RxNorm: 840632 Take 1 Tablet(s) Oral QAM every morning 07/08/19 21 025 Inactive senna 8.6 mg tablet RxNorm: 392371 Take 1 Tablet(s) Oral QD 07/08/19 21 025 Inactive carbamazepine 200 mg tablet RxNorm: 622138 Take 1 Tablet(s) Oral BID 07/08/19 21 025 Inactive clopidogrel 75 mg tablet RxNorm: 039118 Take 1 Tablet(s) Oral QD 07/08/19 21 021 Inactive Blood Glucose Test strips RxNorm: Use 1 Test Strip QID at PRN 07/08/19 21 021 Inactive E11.42 Novolog Flexpen U-100 Insulin aspart 100 unit/mL (3 mL) subcutaneous RxNorm: 0547624 Administer per sliding scale Milliliter(s) Subcutaneous TID 151-200: 10 u; 201-250: 20 u; 251-300: 30 u; 301-350: 40 u; 351-400: 50 u. 07/08/19 21 022 Inactive lisinopril 5 mg tablet RxNorm: 361077 Take 1 Tablet(s) Oral QD 07/08/19 021 Inactive Novolog Flexpen U-100 Insulin aspart 100 unit/mL (3 mL) subcutaneous RxNorm: 1651377 Inject 85 Unit(s) Subcutaneous TID 07/08/19 022 Inactive pravastatin 80 mg tablet RxNorm: 987776 Take 1 Tablet(s) Oral QHS every night at bedtime 07/08/19 023 Inactive clotrimazole 1 % topical cream RxNorm: 051497 Apply to bilateral groin areas Topical BID 07/08/19 022 Inactive metoprolol succinate ER 200 mg tablet,extended release 24 hr RxNorm: 270840 Take 1 Tablet(s) Oral QD 07/08/19 021 Inactive Vitamin D3 25 mcg (1,000 unit) tablet RxNorm: 681983 Take 1 Tablet(s) Oral QD 07/08/19 021 Inactive isosorbide dinitrate 30 mg tablet RxNorm: 111106 Take 1 Tablet(s) Oral QD 07/08/19 021 Inactive Levemir FlexTouch U-100 Insulin 100 unit/mL (3 mL) subcutaneous pen RxNorm: 758041 Inject 140 Unit(s) Subcutaneous BID 07/08/19 021 Inactive torsemide 20 mg tablet RxNorm: 895396 Take 1 Tablet(s) Oral QD 07/08/19 023 Inactive venlafaxine 75 mg tablet RxNorm: 180332 Take 1 Tablet(s) Oral QD 07/08/19 021 Inactive acetaminophen 500 mg tablet RxNorm: 234101 Take 1 Tablet(s) Oral TID as needed for headache 06/18/19 021 Inactive acetaminophen 500 mg tablet RxNorm: 515594 Take 1 Tablet(s) Oral TID as needed for headache 06/18/19 021 Inactive Lyrica 100 mg capsule RxNorm: 162213 Take 1 Capsule(s) Oral QHS every night at bedtime 06/11/19 21 021 Inactive Lyrica 50 mg capsule RxNorm: 569266 Take 1 Capsule(s) Oral QAM every morning 06/10/19 21 021 Inactive hydrocortisone 2.5 % topical cream RxNorm: 242160 Apply to bilateral groin creases Topical BID 05/15/20 20 021 Inactive clotrimazole 1 % topical cream RxNorm: 513874 Apply to bilateral groin areas Topical BID 05/15/20 20 021 Inactive Lyrica 50 mg capsule RxNorm: 852565 Take 1 Capsule(s) Oral QAM every morning 05/14/20 20 Inactive Lyrica 100 mg capsule RxNorm: 135328 Take 1 Capsule(s) Oral QHS every night [...] Inactive Nystop 100,000 unit/gram topical powder RxNorm: 185116 Apply to abd folds, under breasts and L side of groin Topical BID x 14 days, then BID PRN 04/08/20 20 020 Inactive dx: yeast dermatitis Lyrica 100 mg capsule RxNorm: 319403 Take 1 Capsule(s) Oral QHS every night at bedtime 03/13/20 20 020 Inactive Lyrica 50 mg capsule RxNorm: 940399 Take 1 Capsule(s) Oral QAM every morning 03/13/20 20 Inactive ketoconazole 2 % shampoo RxNorm: 406021 Apply Topical two times a week with showers 03/11/20 20 024 Inactive cholecalciferol (vitamin D3) 50 mcg (2,000 unit) tablet RxNorm: 277110 Take 1 Tablet(s) Oral QD 03/11/20 20 021 Inactive Zetia 10 mg tablet RxNorm: 379108 Take 1 Tablet(s) Oral QD 03/07/20 20 021 Inactive Zetia 10 mg tablet RxNorm: 979242 Take 1 Tablet(s) Oral QD 03/07/20 20 Inactive Lyrica 50 mg capsule RxNorm: 875438 Take 1 Capsule(s) Oral QAM every morning 02/15/20 20 Inactive Lyrica 100 mg capsule RxNorm: 021893 Take 1 Capsule(s) Oral QHS every night at bedtime 02/15/20 20 Inactive Lyrica 100 mg capsule RxNorm: 497615 Take 1 Capsule(s) Oral QHS every night at bedtime 02/15/20 20 Inactive Lyrica 50 mg capsule RxNorm: 379796 Take 1 Capsule(s) Oral QAM every morning 02/15/20 20 020 Inactive metoprolol succinate ER 200 mg tablet,extended release 24 hr RxNorm: 372297 Take 1 Tablet(s) Oral QD 08/12/19 025 Inactive loperamide 2 mg capsule RxNorm: 117069 Take 1 Capsule(s) Oral QID as needed 09/06/19 25 025 Inactive hydralazine 50 mg tablet RxNorm: 916414 Take 1 Tablet(s) Oral QID 08/12/19 23 025 Inactive Soft Touch Lancets RxNorm: miscellaneous 03/04/20 24 025 Inactive venlafaxine ER 75 mg capsule,extended release 24 hr RxNorm: 414427 Take 3 Capsule(s) Oral QD 06/12/19 22 023 Inactive polyethylene glycol 3350 17 gram/dose oral powder RxNorm: 939024 Take 17=1 capful Gram(s) Oral BID as needed mix with 4-8oz of liquid 06/12/19 22 024 Inactive icosapent ethyl 1 gram capsule RxNorm: 9788936 Take 2 Capsule(s) (2 gm) Oral BID with meals 10/07/19 023 Inactive Okay to dispense one 2gm tab if you have that available. Levemir FlexTouch U-100 Insulin 100 unit/mL (3 mL) subcutaneous pen RxNorm: 757575 Inject 80 Unit(s) Subcutaneous BID 07/14/19 23 023 Inactive Novolog Flexpen U-100 Insulin aspart 100 unit/mL (3 mL) subcutaneous RxNorm: 6916499 Insert 30 Unit(s) Subcutaneous TID with meals [...] Planned Activity Notes Codes Status Date Referral: [facility] Radiology/Imaging WPtel: [address] [id number] [place] Referral Appointment Scheduled 10/20/2024 Referral: [facility]/Endocrinology WPtel: [address] [place], [place] [phone] [place] Referral No Records Received 07/10/2024 Patient Education: Patient Medication Summary Completed 06/05/2024 Appointment: Brian Munson WPtel: [address] [place], [place] [phone] AWV 02/08/2024 Appointment: Brian Munson WPtel: [address] [place], [place] [phone] [place] F/U 01/11/2024 Appointment: Snadra Clark WPtel: [address] [place], [place] [phone] Telehealth Psych Follow Up 12/09 Appointment: Tapan Shirley WPtel: [address] [place], [place] [phone] TCM 10/26/2022 Referral: [facility] WPtel: [address], [address] [id number] [place] Referral Records Received 09/21/2022 Appointment: Tapan Shirlye WPtel: [address] [place] [address] 300 [id number] [place] F/U 08/11/2022 Appointment: Tapan Shirley WPtel: [address] [facility] 300 [id number] [place] F/U 07/14/2022 Appointment: Tapan Shirley WPtel: [address] [facility] 300 [id number] [place] F/U 02/10/2022 Referral: [facility] WPtel: [address] [facility] [address] [id number] [place] Referral Completed 05/28/2021 Referral: General Cardiology [...] Sister Jyotsna involved in his care cell# [phone] Guardian: Giulia (tapan met in person 09/01/21), [...] appointment 05.26.2024 with Jessa Webster MD at [facility]. Start Pioglitazone 15 mg QD. Stop Basaglar insulin. Increase Ozempic 2 mg once wkly. Continue Humalin R U-500 100 units with meals TID. FOLLOW UP 2 MONTHS. If BG >400 add 50 units to next scheduled dose of Humalin R U 500 insulin 06/12/2024
--- OUTSIDE RECORDS SUMMARY | 2024-10-19 19:14 | XMS_ITS | CCD ---
Author Organization Unknown Care Team Providers Care Emotional Support Teacher Name Role Phone Harrison Durham Primary Care Provider Leona vailable Unavailable Chronic Care Management Unavaila ble Summary Purpose DataExchange Insurance Providers Payer name Policy type / Coverage type Covered green party ID Effective Begin Date Effective End Date [place] Part B [id number] Unknown Unknown Medicaid [place] Medicare Part B [id number] Unknown Unknown Family history Sister Brittany Suggs [...] on file 07/11/[address]: 340829901 Never smoker 01/16 Sexually Active? Unknown No [...] Unknown Long-Term 09/03/[address]: 180500783 No Alcohol Consum ption 09/02/2020 Allergies, Adverse Reactions, Alerts Substance Reaction Codes Entered Date Inactivated Date Status * NO KNOWN FOOD ALLERGIES Unknown 07/13/2023 No Inactive Date Active LISINOPRIL RxNorm: 91506 02/12/2020 No Inactive Da te Active Metformin HCl Unknown 02/12/2020 No Inactive Cristiano e Active * NO KNOWN ENVIRONMENTAL ALLERGIES Unknown 07/13/2023 No Inactive Date Active Problems Condition Codes Effective Dates Condition St atus 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 ICD-10: K59.01 ICD-9: 564.01 09/05/2024 Active Hypokalemia ICD-10: E87.6 ICD-9: 276.8 09/05/[address] stools SN[address] CT: 463915422 ICD-10: R19.5 ICD-9: 787.7 09/05/2024 Active Stage 2 chronic kidney disea se due to type 2 diabetes mellitus ICD-10: E11.22 ICD-9: 250.40 09/05/2024 Active Type 2 diabetes mellitus wit h diabetic polyneuropathy, with long-term current use of insulin ICD-10: E11.42 ICD-9: 250.60 09/05/2024 Active Body mass index [BMI] 60.0-69.9, adult SNOMED CT: 391943790 ICD-10: Z68.44 ICD-9: V85.44 08/08/2024 Active Mixed incontinence SNOMED CT: 89802399 ICD-10: N39.46 ICD-9: 788.33 08/08/2024 Active Diabetic neuropathy associat ed with type 2 diabetes mellitus ICD-10: E11.40 ICD-9: 250.60 07/11/2024 Active Hemorrhoids ICD-10: K64.9 ICD-9: 455.6 07/11/2024 Active Lower extremity edema ICD-10: R60.0 ICD-9: 782.3 07/11/2024 Active PVD (peripheral vascular disease) ICD-10: I73.9 ICD-9: 443.9 07/11/2024 Active Candidal intertrigo ICD-10: B37.2 ICD-9: 112.3 06/13/2024 Active Hyperlipidemia associated wi th type 2 diabetes mellitus ICD-10: E11.69 ICD-9: 250.80 06/13/2024 Active Hypertensive heart disease without heart failure ICD-10: I11.9 ICD-9: 402.90 06/13/2024 Active Onychogryposis ICD-10: L60.2 ICD-9: 703.8 06/13/2024 Active Advance care planning ICD-10: Z71.89 [...] 701.9 09/07/2023 Resolved Coronary artery disease involving [place] coronary artery of [place] [...] immunization ICD-10: Z23 ICD-9: V03.89 02/10/2022 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 ICD-10: Z79.4 02/10/2022 [...] chloride ER 20 mEq tablet,extended release RxNorm: 232898 Take 2 Tablet(s) Oral TID (dx: hypokalemia) 09/14/19 25 025 Inactive potassium chloride ER 20 mEq tablet,extended release RxNorm: 398221 Take 2 Tablet(s) Oral TID (dx: hypokalemia) 09/14/19 25 026 Active loperamide 2 mg tablet RxNorm: 819245 Take 2 Tablet(s) Oral UD as directed [...] Date Active senna 8.6 mg tablet RxNorm: 193593 Take 1 Tablet(s) Oral QD as needed and 1 tab BID prn 09/06/19 No Stop Date Active cyclobenzaprine 10 mg tablet RxNorm: 275967 Take 1 Tablet(s) Oral QHS every night at bedtime as needed 09/06/19 No Stop Date Active loperamide 2 mg tablet RxNorm: 241958 Take 2 Tablet(s) Oral UD as directed as needed 2 tabs after first loose stool then 1 tab after each subsequent stool PRN Do not exceed 4 doses in 24 hours. Do not administer until after 3 loose stools. 09/06/19 026 Active pioglitazone 15 mg tablet RxNorm: 842198 Take 1 Tablet(s) Oral QD 09/06/19 No Stop Date Active loperamide 2 mg tablet RxNorm: 027142 Take 2 Tablet(s) Oral UD as directed as needed 2 tabs after first loose stool then 1 tab after each subsequent stool PRN Do not exceed 4 doses in 24 hours. Do not administer until after 3 loose stools. 09/06/19 25 025 Inactive pregabalin 100 mg capsule RxNorm: 981625 1 CAPSULE BY MOUTH EVERY MORNING (DX: NEUROPATHY) 08/23/19 25 025 Active FACILITY IS REQUESTING REFILL. PRIOR RX HAS BEEN EXHAUSTED. THANK YOU. pregabalin 150 mg capsule RxNorm: 139264 1 CAPSULE BY MOUTH AT BEDTIME (DX: NEUROPATHY) 08/21/19 25 025 Active FACILITY IS REQUESTING A REFILL OF THIS MEDICATION, THANK YOU! senna 8.6 mg tablet RxNorm: 132853 Take 1 Tablet(s) Oral QD as needed for constipation on day 2 of no bowel movement 08/09/19 25 025 Inactive Miralax 17 gram/dose oral powder RxNorm: 221511 Administer 17 Gram(s) Oral QD as needed for constipation on day 3 of no bowel movement 08/09/19 25 025 Inactive senna 8.6 mg tablet RxNorm: 224290 Take 1 Tablet(s) Oral QD as needed for constipation on day 2 of no bowel movement 08/09/19 25 025 Inactive Miralax 17 gram/dose oral powder RxNorm: 221072 Administer 17 Gram(s) Oral QD as needed for constipation on day 3 of no bowel movement 08/09/19 25 025 Inactive pregabalin 100 mg capsule RxNorm: 934073 Take 1 Capsule(s) Oral QAM every morning [...] (Concentrated) Insulin 500 unit/mL subcutaneous soln RxNorm: 685019 Inject 100 Unit(s) Subcutaneous AC before meals Three times daily before meals. 07/24/19 25 025 Inactive ammonium lactate 12 % topical cream RxNorm: 319281 Apply 1 Application Topical BID 07/20/19 No Stop Date Active ezetimibe 10 mg tablet RxNorm: 225428 Take 1 Tablet(s) Oral QD 07/18/19 No Stop Date Active senna 8.6 mg tablet RxNorm: 388819 Take 1 Tablet(s) Oral QD 07/18/19 25 025 Inactive metoprolol succinate ER 200 mg tablet,extended release 24 hr RxNorm: 009341 Take 1 Tablet(s) Oral QD 06/19/19 No Stop Date Active pantoprazole 40 mg tablet,delayed release RxNorm: 007616 Take 1 Tablet(s) Oral QAM every morning 06/19/19 No Stop Date Active hydralazine 50 mg tablet RxNorm: 918944 Take 1 Tablet(s) Oral QID 06/19/19 No Stop Date Active carbamazepine 200 mg tablet RxNorm: 147724 Take 1 Tablet(s) Oral BID 06/19/19 25 No Stop Date Active amlodipine 10 mg tablet RxNorm: 852372 Take 1 Tablet(s) Oral QD 06/19/19 25 No Stop Date Active Eliquis 5 mg tablet RxNorm: 3014922 Take 1 Tablet(s) Oral BID 06/19/19 25 No Stop Date Active pen needle, diabetic 30 gauge x 3/16 RxNorm: Use 1 6 times per day w/insulin 06/14/19 25 026 Active pen needle, diabetic 30 gauge x 3/16 RxNorm: Use 1 needle 6 times per day w/insulin 06/14/19 25 025 Inactive nystatin 100,000 unit/gram topical powder RxNorm: 795729 Apply 1 Application Topical BID as needed abdominal/breast /groin folds 05/24/19 25 026 Active pregabalin 100 mg capsule RxNorm: 155324 Take 1 Capsule(s) Oral QAM every morning 05/22/19 25 025 Inactive nystatin 100,000 unit/gram topical powder RxNorm: 456427 Apply 1 Application Topical BID as needed abdominal/breast /groin folds 04/11/20 24 024 Inactive chlorthalidone 25 mg tablet RxNorm: 977203 Take 1 Tablet(s) Oral QAM every morning 04/06/20 24 No Stop Date Active pregabalin 150 mg capsule RxNorm: 581376 Take 1 Capsule(s) Oral QHS every night at bedtime 03/31/20 24 024 Inactive Vascepa 1 gram capsule RxNorm: 8900157 Take 2 Capsule(s) Oral BID 03/30/20 24 025 Active rosuvastatin 40 mg tablet RxNorm: 420014 1 TAB ORALLY EVERY EVENING (DX:CORONARY ARTERY DISEASE) 03/28/20 24 No Stop Date Active venlafaxine ER 75 mg capsule,extended release 24 hr RxNorm: 801604 3 CAPS (225MG) ORALLY DAILY (DX: MOOD DISORDER) 03/28/20 24 No Stop Date Active pregabalin 100 mg capsule RxNorm: 127453 Take 1 Capsule(s) Oral QAM every morning 03/20/20 24 024 Inactive cholecalciferol (vitamin D3) 1,250 mcg (50,000 unit) capsule RxNorm: 074617 Take 1 Capsule(s) Oral QW once a [...] Insulin 100 unit/mL (3 mL) subcutaneous RxNorm: 0276135 Inject 40 Unit(s) Subcutaneous BID 03/07/20 025 Inactive Please dispense one month supply. Humulin R U-500 (Concentrated) Insulin 500 unit/mL subcutaneous soln RxNorm: 540095 Inject 100 Unit(s) Subcutaneous AC before meals [...] use with new Accu [place] meter 03/04/20 024 Inactive ok to substitute with any covered alternative test strip FreeStyle Chema 2 Sensor kit RxNorm: Use UD as directed 03/02/20 24 Inactive Pen Needle 30 gauge x 516 RxNorm: Pen(s) Use 1 needle as directed TID 03/02/20 24 Inactive nystatin 100,000 unit/gram topical powder RxNorm: 565499 Apply 1 Application Topical BID as needed abdominal/breast /groin folds 03/02/20 Inactive FreeStyle Chema 2 Sensor kit RxNorm: Use UD as directed 03/02/20 24 025 Inactive Accu-Chek Guide test strips RxNorm: [...] (Concentrated) Insulin 500 unit/mL subcutaneous soln RxNorm: 814872 Inject 100 Unit(s) Subcutaneous TID 02/17/20 24 024 Inactive Humulin R U-500 (Concentrated) Insulin 500 unit/mL subcutaneous soln RxNorm: 491532 Inject 100 Unit(s) Subcutaneous TID 02/10/20 24 024 Inactive Basaglar KwikPen U-100 Insulin 100 unit/mL (3 mL) subcutaneous RxNorm: 5884939 Inject 30 Unit(s) Subcutaneous BID 02/10/20 24 024 Inactive Please dispense one month supply. pregabalin 100 mg capsule RxNorm: 699630 Take 1 Capsule(s) Oral QAM every morning 02/07/20 24 024 Inactive isosorbide mononitrate ER 60 mg tablet,extended release 24 hr RxNorm: 157980 Take 1 Tablet(s) Oral QD 02/01/20 24 025 Active aripiprazole 15 mg tablet RxNorm: 191568 Take 1/2 Tablet(s) Oral QD 02/01/20 24 025 Active torsemide 20 mg tablet RxNorm: 337503 1 TAB ORALLY DAILY (DX: EDEMA) 01/27/20 No Stop Date Active potassium chloride ER 20 mEq tablet,extended release(part/cryst) RxNorm: 7556615 2 TABS (40MEQ) ORALLY TWICE DAILY (DX: HYPOKALEMIA) 01/27/20 025 Inactive cephalexin 500 mg capsule RxNorm: 831211 Take 1 Capsule(s) Oral QID 12/17/19 24 024 Inactive cephalexin 500 mg capsule RxNorm: 115594 Take 1 Capsule(s) Oral QID 12/17/19 24 024 Inactive acetaminophen 500 mg tablet RxNorm: 066396 (MAX APAP:4GM/24HR) Take 1 Tablet(s) Oral TID as needed for pain 12/10/19 24 Inactive torsemide 20 mg tablet RxNorm: 277887 Take 1 Tablet(s) Oral QD 10/26/19 24 024 Inactive potassium chloride ER 20 mEq tablet,extended release RxNorm: 517504 Take 2 Tablet(s) Oral BID 10/26/19 24 024 Inactive torsemide 20 mg tablet RxNorm: 100219 Take 1 Tablet(s) Oral QD 10/26/19 24 Inactive potassium chloride ER 20 mEq tablet,extended release RxNorm: 396891 Take 2 Tablet(s) Oral BID 10/26/19 24 Inactive Artificial Tears (PF) 0.1 %-0.3 % drops in a dropperette RxNorm: 710652 Apply 1-2 Drop(s) Both eyes BID as needed 09/28/19 24 025 Inactive erythromycin 5 mg/gram (0.5 %) eye ointment RxNorm: 758643 Apply 1 Application Both eyes QHS every night at bedtime Instill ~1 cm ribbon into affected eye 09/28/19 24 024 Inactive Artificial Tears (PF) 0.1 %-0.3 % drops in a dropperette RxNorm: 165732 Apply 1-2 Drop(s) Both eyes BID as needed 09/28/1907 10/14/2 024 Inactive erythromycin 5 mg/gram (0.5 %) eye ointment RxNorm: 779998 Apply 1 Application Both eyes QHS every night at bedtime Instill ~1 cm ribbon into affected eye 09/28/19 24 024 Inactive acetaminophen 500 mg tablet RxNorm: 542722 (MAX APAP:4GM/24HR) Take 1 Tablet(s) Oral TID as needed for pain 09/24/19 024 Inactive carvedilol 25 mg tablet RxNorm: 222829 Take 1 Tablet(s) Oral QD 09/08/19 24 No Stop Date Active pregabalin 100 mg capsule RxNorm: 103281 Take 1 Capsule(s) Oral QAM every morning 09/07/19 24 024 Inactive bisacodyl 10 mg rectal suppository RxNorm: 473825 Insert 1 Suppository Rectal QD as needed 07/13/19 24 No Stop Date Active ketoconazole 2 % shampoo RxNorm: 936692 Apply 1 Application Topical UD as directed 07/13/19 24 No Stop Date Active Ozempic 1 mg/dose (4 mg/3 mL) subcutaneous pen injector RxNorm: 9677677 Inject 1 Milligram(s) Subcutaneous QW once a week 07/13/19 24 No Stop Date Active Guaifenesin AC 10 mg-100 mg/5 mL oral liquid RxNorm: 307767 Take 10 Milliliter(s) Oral Q4H every four hours as needed 07/13/19 24 No Stop Date Active hydrocortisone 2.5 % topical cream RxNorm: 182311 Apply 1 Application Topical BID as needed 07/13/19 24 No Stop Date Active rosuvastatin 40 mg tablet RxNorm: 306065 Take 1 Tablet(s) Oral QPM every evening 07/13/19 24 024 Inactive ezetimibe 10 mg tablet RxNorm: 165978 Take 1 Tablet(s) Oral QD 07/13/19 24 025 Inactive polyethylene glycol 3350 17 gram/dose oral powder RxNorm: 274871 Take 17 Gram(s) Oral BID as needed mix in 4-8ox water 07/13/19 24 025 Inactive aripiprazole 15 mg tablet RxNorm: 499527 Take 1/2 Tablet(s) Oral QD 07/13/19 24 024 Inactive isosorbide mononitrate ER 60 mg tablet,extended release 24 hr RxNorm: 534551 Take 1 Tablet(s) Oral QD 07/13/19 24 024 Inactive ammonium lactate 12 % topical cream RxNorm: 144680 Apply 1 Application Topical BID 07/13/19 24 025 Inactive rosuvastatin 20 mg sprinkle capsule RxNorm: 5922204 Take 1 Capsule(s) Oral QD 07/13/19 24 025 Inactive Vascepa 1 gram capsule RxNorm: 5222132 Take 2 Capsule(s) Oral BID 07/13/19 24 024 Inactive venlafaxine ER 75 mg capsule,extended release 24 hr RxNorm: 074894 Take 3 Capsule(s) Oral QD 07/13/19 24 024 Inactive Basaglar KwikPen U-100 Insulin 100 unit/mL (3 mL) subcutaneous RxNorm: 2070104 Inject 30U SubQ twice daily 07/07/19 24 024 Inactive Please dispense one month supply. Basaglar KwikPen U-100 Insulin 100 unit/mL (3 mL) subcutaneous RxNorm: 2593111 Inject 30U SubQ twice daily 07/07/19 24 024 Inactive Please dispense one month supply. pregabalin 150 mg capsule RxNorm: 810199 Take 1 Capsule(s) Oral QHS every night at bedtime 07/05/19 24 024 Inactive pregabalin 150 mg capsule RxNorm: 190074 Take 1 Capsule(s) Oral QHS every night at bedtime 07/05/19 24 024 Inactive polyethylene glycol 3350 17 gram/dose oral powder RxNorm: 839151 Take 1 Packet Oral QD as needed (1 packet = 17g) mix with 4-8oz of liquid 06/15/19 24 024 Inactive bisacodyl 10 mg rectal suppository RxNorm: 456927 Insert one suppository per rectum once daily as needed for constipation 06/15/19 24 024 Inactive bisacodyl 10 mg rectal suppository RxNorm: 934147 Insert one suppository per rectum once daily as needed for constipation 06/15/19 24 024 Inactive pregabalin 100 mg capsule RxNorm: 977968 Take 1 Capsule(s) Oral QAM every morning 04/27/20 23 024 Inactive Levemir FlexPen 100 unit/mL (3 mL) solution subcutaneous insulin pen RxNorm: 022607 Inject 30 Unit(s) Subcutaneous BID 04/27/20 024 Inactive rosuvastatin 40 mg tablet RxNorm: 551453 Take 1 Tablet(s) Oral QPM every evening 04/16/20 024 Inactive D/C rosuvastatin 20mg venlafaxine ER 75 mg capsule,extended release 24 hr RxNorm: 715852 Take 3 Capsule(s) Oral QD 04/14/20 023 Inactive pregabalin 100 mg capsule RxNorm: 181974 Take 1 Capsule(s) Oral QAM every morning [...] strip clotrimazole 1 % topical cream RxNorm: 580269 Take apply topically to abdominal folds twice daily for 14 days 03/12/20 024 Inactive Ozempic 1 mg/dose (4 mg/3 mL) subcutaneous pen injector RxNorm: 8003469 Inject 1 Milligram(s) Subcutaneous QW once a week 03/11/20 023 Inactive rosuvastatin 20 mg tablet RxNorm: 107700 Take 1 Tablet(s) Oral QD 02/26/20 23 023 Inactive d/c pravastatin 80mg Ozempic 1 mg/dose (4 mg/3 mL) subcutaneous pen injector RxNorm: 7362692 Inject 1 Milligram(s) Subcutaneous QW once a week 02/20/20 23 023 Inactive pregabalin 150 mg capsule RxNorm: 650577 Take 1 Capsule(s) Oral HS at bed time 02/19/20 23 023 Inactive pregabalin 100 mg capsule RxNorm: 100920 Take 1 Capsule(s) Oral QAM every morning 02/18/20 23 023 Inactive venlafaxine ER 75 mg capsule,extended release 24 hr RxNorm: 953500 Take 3 Capsule(s) Oral QD 02/04/20 23 023 Inactive FreeStyle Chema 2 Sensor kit RxNorm: use as directed 02/04/20 23 023 Inactive FreeStyle Chema 2 Sensor kit RxNorm: use as directed 02/04/20 024 Inactive fluconazole 150 mg tablet RxNorm: 241123 Take 1 Tablet(s) Oral on day 3 and on day 6 02/03/20 024 Inactive venlafaxine ER 150 mg capsule,extended release 24 hr RxNorm: 393587 Take 1 Capsule(s) Oral QD 02/03/20 23 023 Inactive chlorthalidone 25 mg tablet RxNorm: 019641 Take 1 Tablet(s) Oral QAM every morning 02/03/20 23 024 Inactive acetaminophen 500 mg tablet RxNorm: 057273 1 TABLET ORALLY 3 TIMES DAILY (MAX APAP:4GM/24HR) 12/15/19 23 023 Inactive potassium chloride ER 20 mEq tablet,extended release RxNorm: 952105 Take 1 Tablet(s) Oral BID 12/09/19 23 024 Inactive d/c 20mEq once daily (sent from hospital) clotrimazole 1 % topical cream RxNorm: 409616 apply 1g topically to top of feet and in between toes BID 12/09/19 23 025 Inactive nystatin 100,000 unit/gram topical powder RxNorm: 965468 APPLY TO AFFECTED AREAS TOPICALLY 2 TIMES DAILY 11/21/19 23 023 Inactive Nystop 100,000 unit/gram topical powder RxNorm: 847501 Apply to abd folds, under breasts and L side of groin Topical BID x 14 days, then BID PRN 11/20/19 23 023 Inactive dx: yeast dermatitis [place] Ultra Strength 4 %-30 %-10 % topical cream RxNorm: 547588 Apply 1 Gram(s) Topical QID PRN to feet and legs for neuropathic pain 11/11/19 23 024 Inactive clotrimazole 1 % topical cream RxNorm: 372595 Apply 1/2 Gram(s) Topical BID Apply to affected areas of groin, periarea, and abdominal topically 2 times daily 11/10/19 23 023 Inactive hydrocortisone 2.5 % topical cream RxNorm: 533622 Apply 1/2 Gram(s) Topical BID as needed 11/10/19 024 Inactive Levemir FlexPen 100 unit/mL (3 mL) solution subcutaneous insulin pen RxNorm: 358739 Inject 30 Unit(s) Subcutaneous BID 10/07/19 23 023 Inactive Humulin R U-500 (Concentrated) Insulin 500 unit/mL subcutaneous soln RxNorm: 483811 Inject 100 Unit(s) Subcutaneous TID 10/07/19 23 024 Inactive Ozempic 0.25 mg or 0.5 mg (2 mg/3 mL) subcutaneous pen injector RxNorm: 6895749 Inject 1/2 Milligram(s) Subcutaneous QW once a week 10/07/19 23 024 Inactive aripiprazole 15 mg tablet RxNorm: 240338 1/2 TAB (7.5MG) ORALLY DAILY (DX:MAJOR DEPRESSIVE DISORDER) 09/23/19 23 023 Inactive Accu-Chek Guide test strips RxNorm: Use 1 Test Strip QID 09/15/19 23 023 Inactive ok to substitute with any covered alternative test strip Lancets,Thin 28 gauge RxNorm: Use 1 as directed QID 09/15/19 23 023 Inactive torsemide 20 mg tablet RxNorm: 294716 Take 1 Tablet(s) Oral BID 09/09/19 23 024 Inactive d/c once daily dosing carvedilol 25 mg tablet RxNorm: 701048 Take 1 Tablet(s) Oral QD 08/25/19 23 024 Inactive pregabalin 150 mg capsule RxNorm: 053758 1 Capsule(s) Oral HS at bed time 08/18/19 23 023 Inactive pregabalin 100 mg capsule RxNorm: 474653 1 Capsule(s) Oral QAM every morning 08/18/19 23 023 Inactive carvedilol 25 mg tablet RxNorm: 560360 1 Tablet(s) Oral QD 07/28/19 23 023 Inactive lisinopril 20 mg tablet RxNorm: 500361 Give 1 Tablet(s) Oral QD 07/28/19 23 023 Inactive Lyrica 150 mg capsule RxNorm: 995039 Take 1 Capsule(s) Oral QHS every night at bedtime 07/19/19 023 Inactive d/c 100mg dose Diflucan 150 mg tablet RxNorm: 104481 Take 1 Tablet(s) Oral QD repeat on day 3 and 6 07/19/19 23 023 Inactive pregabalin 100 mg capsule RxNorm: 537404 Take 1 Capsule(s) Oral QAM every morning 07/19/19 023 Inactive gatifloxacin 0.5 % eye drops RxNorm: 660753 Instill 1 Drop(s) as directed TID Instill 1 drop in to affected eye(s) starting 1 day prior to surgery and continue until gone (do not exceed 4 weeks). 07/13/19 23 023 Inactive carvedilol 25 mg tablet RxNorm: 573362 2 Tablet(s) Oral BID 07/13/19 23 023 Inactive Humulin R Regular U-100 Insulin 100 unit/mL injection solution RxNorm: 889285 85 Unit(s) Injection TID 07/13/19 23 023 Inactive ketorolac 0.5 % eye drops RxNorm: 790056 Instill 1 Drop(s) as directed QID Instill 1 drop into affected eye(s) 4 times daily starting 1 day prior to surgery and continue until gone (do not exceed 4 weeks). 02/27/ 023 Inactive Diflucan 150 mg tablet RxNorm: 645224 Take 1 Tablet(s) Oral QD repeat on day 3 and 6 06/30/19 023 Inactive Accu-Chek Guide test strips RxNorm: Use 1 Test Strip QID Use 1 test strip to monitor blood glucose 4 times daily and as needed. Dx:E11.42. 06/23/19 23 023 Inactive ok to substitute with any covered alternative test strip dextromethorphan-gu aifenesin 10 mg-100 mg/5 mL oral liquid RxNorm: 352397 Take 10 Milliliter(s) Oral every 4 hours as needed for cough 06/19/19 023 Inactive dextromethorphan-gu aifenesin 10 mg-100 mg/5 mL oral liquid RxNorm: 198340 Take 10 Milliliter(s) Oral every 4 hours as needed for cough 06/19/19 023 Inactive Lyrica 150 mg capsule RxNorm: 959166 Take 1 Capsule(s) Oral QHS every night at bedtime 06/18/19 023 Inactive d/c 100mg dose aripiprazole 15 mg tablet RxNorm: 889752 1/2 TAB (7.5MG) ORALLY DAILY (DX:MAJOR DEPRESSIVE DISORDER) 06/05/19 23 023 Inactive pregabalin 100 mg capsule RxNorm: 033233 1 Capsule(s) Oral QAM every morning 06/02/19 23 023 Inactive Banophen 50 mg capsule RxNorm: 8006955 Take 1 Capsule(s) Oral Q6H every 6 hours as needed 05/19/19 23 No Stop Date Active Novolog Flexpen U-100 Insulin aspart 100 unit/mL (3 mL) subcutaneous RxNorm: 0946683 Inject 10 Unit(s) Subcutaneous QHS every night at bedtime with nighttime snack 04/08/20 022 Inactive Novolog Flexpen U-100 Insulin aspart 100 unit/mL (3 mL) subcutaneous RxNorm: 7859957 Inject 42 Unit(s) Subcutaneous TID in addition to sliding scale 04/08/20 022 Inactive d/c 36u albuterol sulfate HFA 90 mcg/actuation aerosol inhaler RxNorm: 7292542 Take 2 Puff(s) Inhalation Q4H every four hours as needed as needed for SOB, cough, or wheezing 04/07/20 030 Active Banophen 50 mg capsule RxNorm: 2853417 Take 1 Capsule(s) Oral Q6H every 6 hours as needed 04/06/20 023 Inactive diphenhydramine 50 mg tablet RxNorm: 3275816 Take 1 Tablet(s) Oral Q6H every 6 hours as needed 04/06/20 022 Inactive diphenhydramine 50 mg tablet RxNorm: 6754714 1 Tablet(s) Oral Q6H every 6 hours as needed 04/06/20 022 Inactive Abilify 15 mg tablet RxNorm: 061982 1/2 Tablet(s) Oral QD 03/10/20 023 Inactive Shingrix (PF) 50 mcg/0.5 mL intramuscular suspension, kit RxNorm: 6505451 Administer 1/2 Milliliter(s) Intramuscular QD one time shingrix step 2 ( step 1 given 11/04/21) WITH needle - Nursing please administer upon arrival and once administered post a bridge message with date of administration, film 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 inspector, expiration date, and lot# so we can update [facility] 02/18/20 22 Inactive dispense with needle Shingrix (PF) 50 mcg/0.5 mL intramuscular suspension, kit RxNorm: 6223550 Administer 1/2 Milliliter(s) Intramuscular QD one time shingrix step 2 ( step 1 given 11/04/21) WITH needle - Nursing please administer upon arrival and once administered post a bridge message with date of administration, film flat inspector, expiration date, and lot# so we can update [facility] 02/18/20 22 022 Inactive dispense with needle Lyrica 100 mg capsule RxNorm: 321240 Take 1 Capsule(s) Oral QAM every morning 01/08/20 22 022 Inactive d/c 50mg dose acetaminophen 500 mg tablet RxNorm: 230379 Take 1 Tablet(s) Oral TID 01/08/20 22 022 Inactive d/c PRN order Lyrica 150 mg capsule RxNorm: 213294 Take 1 Capsule(s) Oral QHS every night at bedtime 01/08/20 22 023 Inactive d/c 100mg dose polyethylene glycol 3350 17 gram/dose oral powder RxNorm: 793798 Take 17=1 capful Gram(s) Oral QD mix with 4-8oz of liquid 01/08/20 22 025 Inactive take this in addition to BID prn order Abilify 5 mg tablet RxNorm: 365904 Take 1 Tablet(s) Oral QD take 1 tab po QD #30 refill 5 dx: MDD 12/12/19 22 022 Inactive Abilify 5 mg tablet RxNorm: 406875 Take 1 Tablet(s) Oral QD take 1 tab po QD #30 refill 5 dx: MDD 12/12/19 22 022 Inactive Novolog Flexpen U-100 Insulin aspart 100 unit/mL (3 mL) subcutaneous RxNorm: 7451436 Inject 42 Unit(s) Subcutaneous TID in addition to sliding scale 12/10/19 22 022 Inactive d/c 36u chlorthalidone 25 mg tablet RxNorm: 691976 Take 1 Tablet(s) Oral QAM every morning 12/10/19 22 023 Inactive pregabalin 50 mg capsule RxNorm: 715267 Take 1 Capsule(s) Oral QAM every morning 11/12/19 22 022 Inactive tetanus-diphtheria toxoids-Td 2 Lf unit-2 Lf unit/0.5 mL IM suspension RxNorm: 139 Take 0.5 Miscellaneous Intramuscular 11/12/19 22 022 Inactive need tdap - nursing to administer upon arrival pregabalin 50 mg capsule RxNorm: 373642 Take 1 Capsule(s) Oral QAM every morning 10/16/19 22 022 Inactive pregabalin 50 mg capsule RxNorm: 645270 Take 1 Capsule(s) Oral QAM every morning 10/16/19 22 022 Inactive pregabalin 50 mg capsule RxNorm: 038223 1 Capsule(s) Oral QAM every morning 10/15/19 22 022 Inactive Shingrix (PF) 50 mcg/0.5 mL intramuscular suspension, kit RxNorm: 2754864 Administer 1/2 Milliliter(s) Intramuscular one time Nursing please administer upon arrival and once administered post a bridge message with date of administration, film 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 10/09/19 22 Inactive shingrix step 1 Shingrix (PF) 50 mcg/0.5 mL intramuscular suspension, kit RxNorm: 9380000 Administer 1/2 Milliliter(s) Intramuscular one time Nursing please administer upon arrival and once administered post a bridge message with date of administration, film flat inspector, expiration date, and lot# so we [...] aspart 100 unit/mL (3 mL) subcutaneous RxNorm: 1153729 Inject 10 Unit(s) Subcutaneous QHS every night at bedtime with nighttime snack 10/08/19 22 Inactive Shingrix (PF) 50 mcg/0.5 mL intramuscular suspension, kit RxNorm: 9851906 ADMINISTER 2-DOSE SERIES PER CDC GUIDELINES 10/08/19 22 022 Active Shingrix (PF) 50 mcg/0.5 mL intramuscular suspension, kit RxNorm: 5736881 ADMINISTER 2-DOSE SERIES PER CDC GUIDELINES 10/08/19 22 022 Inactive Novolog Flexpen U-100 Insulin aspart 100 unit/mL (3 mL) subcutaneous RxNorm: 0710182 Inject 36 Unit(s) Subcutaneous TID in addition to sliding scale 10/08/19 22 022 Inactive cholecalciferol (vitamin D3) 1,250 mcg (50,000 unit) capsule RxNorm: 926259 Take 1 Capsule(s) Oral QW once a week 10/08/19 Inactive Novofine Autocover 30 gauge x 1/3 needle RxNorm: Use 1 Miscellaneous UD as directed Use 1 needle as directed to administer insulin 5 times a day Dx:E11.42. 10/03/19 22 Inactive ok to substitute with any covered alternative pen needle benzoyl peroxide 10 % topical cleanser RxNorm: 155868 Apply 1 Application Topical QD apply to face, wash rinse and dry once daily (may change to QOD if drying) 08/19/19 022 Inactive (%covered by insurance) #60ml refill 11 dx: acne benzoyl peroxide 10 % topical cleanser RxNorm: 325353 Apply 1 Application Topical QD apply to face, wash rinse and dry once daily (may change to QOD if drying) 08/19/19 022 Inactive (%covered by insurance) #60ml refill 11 dx: acne benzoyl peroxide 10 % topical cleanser RxNorm: 894956 Apply 1 Application Topical QD apply to face, wash rinse and dry once daily (may change to QOD if drying) 08/19/19 022 Inactive (%covered by insurance) #60ml refill 11 dx: acne Lyrica 50 mg capsule RxNorm: 947524 Take 1 Capsule(s) Oral QAM every morning Take 1 capsule by mouth once daily 08/19/19 22 022 Inactive benzoyl peroxide 10 % topical cleanser RxNorm: 718845 Apply 1 Application Topical QD apply to face, wash rinse and dry once daily (may change to QOD if drying) 08/19/19 22 022 Inactive (%covered by insurance) #60ml refill 11 dx: acne Lyrica 100 mg capsule RxNorm: 542806 Take 1 Capsule(s) Oral QHS every night at bedtime Take 1 capsule by mouth once daily at bedtime 08/19/19 22 022 Inactive Lyrica 100 mg capsule RxNorm: 632419 Take 1 Capsule(s) Oral QHS every night at bedtime Take 1 capsule by mouth once daily at bedtime 08/16/19 22 022 Inactive Lyrica 50 mg capsule RxNorm: 894684 Take 1 Capsule(s) Oral QAM every morning Take 1 capsule by mouth once daily 08/16/19 22 022 Inactive Levemir FlexTouch U-100 Insulin 100 unit/mL (3 mL) subcutaneous pen RxNorm: 941849 Inject 86 Unit(s) Subcutaneous BID 08/05/19 22 022 Inactive d/c 83units BID Lyrica 100 mg capsule RxNorm: 838472 Take 1 Capsule(s) Oral QHS every night at bedtime Take 1 capsule by mouth once daily at bedtime 07/14/19 22 022 Inactive Lyrica 50 mg capsule RxNorm: 437056 Take 1 Capsule(s) Oral QAM every morning Take 1 capsule by mouth once daily 07/14/19 22 022 Inactive Levemir FlexTouch U-100 Insulin 100 unit/mL (3 mL) subcutaneous pen RxNorm: 664763 Inject 83 Unit(s) Subcutaneous BID 07/08/19 22 [...] test strip hydralazine 50 mg tablet RxNorm: 883018 Take 1 Tablet(s) Oral QID 05/05/20 21 Inactive venlafaxine ER 225 mg tablet,extended release 24 hr RxNorm: 449951 Take 1 Tablet(s) Oral QD 05/05/20 Inactive venlafaxine ER 225 mg tablet,extended release 24 hr RxNorm: 027480 Take 1 Tablet(s) Oral QD 05/05/20 022 Inactive isosorbide mononitrate ER 30 mg tablet,extended release 24 hr RxNorm: 030220 Take 1 Tablet(s) Oral QD 05/05/20 024 Inactive hydralazine 50 mg tablet RxNorm: 235069 Take 1 Tablet(s) Oral QID 05/05/20 21 Inactive aspirin 81 mg tablet,delayed release RxNorm: 683715 Take 1 Tablet(s) Oral QD 03/31/20 022 Inactive Vitamin D2 1,250 mcg (50,000 unit) capsule RxNorm: 5024566 Take 1 Capsule(s) Oral QW once a week x 12 weeks 03/31/20 022 Inactive Vitamin D2 1,250 mcg (50,000 unit) capsule RxNorm: 4742081 Take 1 Capsule(s) Oral QW once a week 03/31/20 021 Inactive Zetia 10 mg tablet RxNorm: 793706 Take 1 Tablet(s) Oral QD 03/31/20 21 024 Inactive Zetia 10 mg tablet RxNorm: 272837 Take 1 Tablet(s) Oral QD 03/31/20 021 Inactive hydralazine 25 mg tablet RxNorm: 375290 Take 1 Tablet(s) Oral QID 03/31/20 021 Inactive hydralazine 25 mg tablet RxNorm: 991636 Take 1 Tablet(s) Oral QID 03/31/20 021 Inactive hydralazine 10 mg tablet RxNorm: 189008 Take 1 Tablet(s) Oral QID 03/03/20 021 Inactive cephalexin 500 mg tablet RxNorm: 838913 Take 1 Tablet(s) Oral QID 02/27/20 021 Inactive cephalexin 500 mg tablet RxNorm: 612421 Take 1 Tablet(s) Oral QID 02/27/20 021 Inactive lisinopril 40 mg tablet RxNorm: 343686 Take 1 Tablet(s) Oral QD 02/11/20 023 Inactive Eliquis 5 mg tablet RxNorm: 2579909 Take 1 Tablet(s) Oral BID 01/05/20 025 Inactive Eliquis 5 mg tablet RxNorm: 8777658 Take 2 Tablet(s) Oral QD 01/01/20 21 021 Inactive Lyrica 50 mg capsule RxNorm: 014590 Take 1 Capsule(s) Oral QAM every morning 12/24/19 21 021 Inactive Lyrica 100 mg capsule RxNorm: 910516 Take 1 Capsule(s) Oral QHS every night at bedtime 12/24/19 21 021 Inactive clotrimazole 1 % topical cream RxNorm: 932257 Apply to right foot and toes Topical BID 12/04/19 21 023 Inactive metoprolol succinate ER 200 mg tablet,extended release 24 hr RxNorm: 479409 Take 1 Tablet(s) Oral QD 12/04/19 21 023 Inactive ciprofloxacin 500 mg tablet RxNorm: 933219 Take 1 Tablet(s) Oral QD 11/30/19 21 021 Inactive DX ofloxacin otic drops Accu-Chek Guide test strips RxNorm: USE 1 TO CHECK GLUCOSE 4 TIMES DAILY AND NEEDED 11/15/19 21 023 Inactive Blood Glucose Test strips RxNorm: Use 1 Test Strip QID at PRN 11/05/19 21 023 Inactive E11.42 lisinopril 30 mg tablet RxNorm: 628973 Take 1 Tablet(s) Oral QD 10/30/19 021 Inactive lisinopril 20 mg tablet RxNorm: 794470 Take 1 Tablet(s) Oral QD 10/23/19 21 021 Inactive lisinopril 20 mg tablet RxNorm: 804526 Take 1 Tablet(s) Oral QD 10/23/19 21 021 Inactive lisinopril 10 mg tablet RxNorm: 157547 Take 1 Tablet(s) Oral QD 10/02/19 021 Inactive icosapent ethyl 1 gram capsule RxNorm: 2647877 Take 2 Capsule(s) (2 gm) Oral BID with meals 09/12/19 21 024 Inactive Okay to dispense one 2gm tab if you have that available. icosapent ethyl 1 gram capsule RxNorm: 7508446 Take 2 Capsule(s) Oral BID 09/12/19 21 021 Inactive Okay to dispense one 2gm tab if you have that available. amlodipine 10 mg tablet RxNorm: 612383 Take 1 Tablet(s) Oral QD 09/04/19 21 021 Inactive aspirin 81 mg tablet,delayed release RxNorm: 166164 Take 1 Tablet(s) Oral QD 09/04/19 21 021 Inactive Levemir FlexTouch U-100 Insulin 100 unit/mL (3 mL) subcutaneous pen RxNorm: 832734 Inject 150 Unit(s) Subcutaneous BID 09/04/19 21 022 Inactive venlafaxine ER 150 mg tablet,extended release 24 hr RxNorm: 756695 Take 1 Tablet(s) Oral QD 09/04/19 21 021 Inactive clotrimazole-betame thasone 1 %-0.05 % topical cream RxNorm: 146949 Apply to rash on red area on left abdomen/chest Topical BID 03/26/20 21 021 Inactive amlodipine 5 mg tablet RxNorm: 190683 Take 1 Tablet(s) Oral QD 07/31/19 21 Inactive cephalexin 500 mg tablet RxNorm: 966419 Take 1 Tablet(s) Oral BID BID - Twice Daily 07/31/19 21 021 Inactive Start 08/01/20 pantoprazole 40 mg tablet,delayed release RxNorm: 417052 Take 1 Tablet(s) Oral QAM every morning 07/08/19 025 Inactive clopidogrel 75 mg tablet RxNorm: 333049 Take 1 Tablet(s) Oral QD 07/08/19 021 Inactive Blood Glucose Test strips RxNorm: Use 1 Test Strip QID at PRN 07/08/19 21 Inactive E11.42 senna 8.6 mg tablet RxNorm: 179185 Take 1 Tablet(s) Oral QD 07/08/19 025 Inactive Novolog Flexpen U-100 Insulin aspart 100 unit/mL (3 mL) subcutaneous RxNorm: 3031538 Administer per sliding scale Milliliter(s) Subcutaneous TID 151-200: 10 u; 201-250: 20 u; 251-300: 30 u; 301-350: 40 u; 351-400: 50 u. 07/08/19 21 022 Inactive lisinopril 5 mg tablet RxNorm: 980879 Take 1 Tablet(s) Oral QD 07/08/19 021 Inactive Novolog Flexpen U-100 Insulin aspart 100 unit/mL (3 mL) subcutaneous RxNorm: 5994147 Inject 85 Unit(s) Subcutaneous TID 07/08/19 022 Inactive pravastatin 80 mg tablet RxNorm: 757314 Take 1 Tablet(s) Oral QHS every night at bedtime 07/08/19 023 Inactive clotrimazole 1 % topical cream RxNorm: 406267 Apply to bilateral groin areas Topical BID 07/08/19 21 022 Inactive metoprolol succinate ER 200 mg tablet,extended release 24 hr RxNorm: 450261 Take 1 Tablet(s) Oral QD 07/08/19 021 Inactive Vitamin D3 25 mcg (1,000 unit) tablet RxNorm: 355998 Take 1 Tablet(s) Oral QD 07/08/19 021 Inactive isosorbide dinitrate 30 mg tablet RxNorm: 099940 Take 1 Tablet(s) Oral QD 07/08/19 021 Inactive carbamazepine 200 mg tablet RxNorm: 144815 Take 1 Tablet(s) Oral BID 07/08/19 21 025 Inactive Levemir FlexTouch U-100 Insulin 100 unit/mL (3 mL) subcutaneous pen RxNorm: 618805 Inject 140 Unit(s) Subcutaneous BID 07/08/19 021 Inactive torsemide 20 mg tablet RxNorm: 264496 Take 1 Tablet(s) Oral QD 07/08/19 023 Inactive venlafaxine 75 mg tablet RxNorm: 594643 Take 1 Tablet(s) Oral QD 07/08/19 021 Inactive acetaminophen 500 mg tablet RxNorm: 909130 Take 1 Tablet(s) Oral TID as needed for headache 06/18/19 21 021 Inactive acetaminophen 500 mg tablet RxNorm: 978741 Take 1 Tablet(s) Oral TID as needed for headache 06/18/19 021 Inactive Lyrica 100 mg capsule RxNorm: 020994 Take 1 Capsule(s) Oral QHS every night at bedtime 06/11/19 021 Inactive Lyrica 50 mg capsule RxNorm: 699698 Take 1 Capsule(s) Oral QAM every morning 06/10/19 021 Inactive hydrocortisone 2.5 % topical cream RxNorm: 228136 Apply to bilateral groin creases Topical BID 05/15/20 20 021 Inactive clotrimazole 1 % topical cream RxNorm: 517475 Apply to bilateral groin areas Topical BID 05/15/20 20 021 Inactive Lyrica 50 mg capsule RxNorm: 844316 Take 1 Capsule(s) Oral QAM every morning 05/14/20 20 020 Inactive Lyrica 100 mg capsule RxNorm: 852706 Take 1 Capsule(s) Oral QHS every night [...] Inactive Nystop 100,000 unit/gram topical powder RxNorm: 258593 Apply to abd folds, under breasts and L side of groin Topical BID x 14 days, then BID PRN 04/08/20 20 Inactive dx: yeast dermatitis Lyrica 100 mg capsule RxNorm: 140467 Take 1 Capsule(s) Oral QHS every night at bedtime 03/13/20 20 Inactive Lyrica 50 mg capsule RxNorm: 232747 Take 1 Capsule(s) Oral QAM every morning 03/13/20 20 Inactive ketoconazole 2 % shampoo RxNorm: 729200 Apply Topical two times a week with showers 03/11/20 20 024 Inactive cholecalciferol (vitamin D3) 50 mcg (2,000 unit) tablet RxNorm: 982109 Take 1 Tablet(s) Oral QD 03/11/20 20 021 Inactive Zetia 10 mg tablet RxNorm: 274971 Take 1 Tablet(s) Oral QD 03/07/20 20 021 Inactive Zetia 10 mg tablet RxNorm: 871763 Take 1 Tablet(s) Oral QD 03/07/20 20 020 Inactive Lyrica 50 mg capsule RxNorm: 801412 Take 1 Capsule(s) Oral QAM every morning 02/15/20 20 020 Inactive Lyrica 100 mg capsule RxNorm: 016392 Take 1 Capsule(s) Oral QHS every night at bedtime 02/15/20 20 Inactive Lyrica 100 mg capsule RxNorm: 641430 Take 1 Capsule(s) Oral QHS every night at bedtime 02/15/20 20 Inactive Lyrica 50 mg capsule RxNorm: 001021 Take 1 Capsule(s) Oral QAM every morning 02/15/20 20 Inactive venlafaxine ER 75 mg capsule,extended release 24 hr RxNorm: 831834 Take 3 Capsule(s) Oral QD 06/12/19 22 023 Inactive polyethylene glycol 3350 17 gram/dose oral powder RxNorm: 047225 Take 17=1 capful Gram(s) Oral BID as needed mix with 4-8oz of liquid 06/12/19 22 024 Inactive icosapent ethyl 1 gram capsule RxNorm: 1088467 Take 2 Capsule(s) (2 gm) Oral BID with meals 10/07/19 23 023 Inactive Okay to dispense one 2gm tab if you have that available. Levemir FlexTouch U-100 Insulin 100 unit/mL (3 mL) subcutaneous pen RxNorm: 894195 Inject 80 Unit(s) Subcutaneous BID 07/14/19 23 023 Inactive metoprolol succinate ER 200 mg tablet,extended release 24 hr RxNorm: 681585 Take 1 Tablet(s) Oral QD 08/12/19 025 Inactive loperamide 2 mg capsule RxNorm: 207737 Take 1 Capsule(s) Oral QID as needed 09/06/19 025 Inactive hydralazine 50 mg tablet RxNorm: 466698 Take 1 Tablet(s) Oral QID 08/12/19 23 025 Inactive Soft Touch Lancets RxNorm: miscellaneous 03/04/20 24 025 Inactive Novolog Flexpen U-100 Insulin aspart 100 unit/mL (3 mL) subcutaneous RxNorm: 3059717 Insert 30 Unit(s) Subcutaneous TID with meals [...] Planned Activity Notes Codes Status Date Referral: [id number] Appointment Scheduled 10/20/2024 Referral: [facility]/Endocrinology WPtel: [phone] [facility] [address] [id number] [place] Referral No Records Received 07/10/2024 Referral: [facility] WPtel: [phone] [id number] [place] Referral Records Received 09/21/2022 Referral: [facility] WPtel: [address] [id number] [place] Referral Completed 05/28/2021 Referral: General Cardiology [...] stage 3. He moved into [facility] in 12/2019 but after a hospitalization 05/2021 he moved to the [facility] to have closer nursing attention. Sister Jyotsna involved in his care cell# [phone] Guardian: Giulia (tapan met in person 09/01/21), now has Lexii (same group as giulia)AWV 9. Lab Schedule: /September*September (CBC with diff, CMP, [...] appointment 05.26.2024 with Jessa Webster MD at [facility]. Start Pioglitazone 15 mg QD. Stop Basaglar insulin. Increase Ozempic 2 mg once wkly. Continue Humalin R U-500 100 units with meals TID. FOLLOW UP 2 MONTHS. If BG >400 add 50 units to next scheduled dose of Humalin R U 500 insulin 06/12/2024
--- OUTSIDE RECORDS SUMMARY | 2024-10-19 19:14 | XMS_ITS | CCD ---
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 Name Role Phone Harrison Durham Primary Care Provider Leona vailable Unavailable Chronic Care Management Unavaila ble Summary Purpose DataExchange Insurance Providers Payer name Policy type / Coverage type Covered alliance party ID Effective Begin Date Effective End Date [place] [id number] Unknown Unknown [place] B [id number] Unknown Unknown Family history Sister Brittany Suggs Diagnosis Age At Onset No Family Disease Entered N/A Runs in the family Diagnosis Age At Onset No Known Diseases N/A Sister Blanka Mcduffie Diagnosis Age At Onset No Family Disease Entered N/A Social History Social History Element Codes Description Effec tive Dates Tobacco history SNOMED CT: 444084841 Never smoker 01/16 Sexually Active? Unknown No [...] [facility] 09/03/[address]: 222083310 No Alcohol Consum ption 09/02/2020 Allergies, Adverse Reactions, Alerts Substance Reaction Codes Entered Date Inactivated Date Status * NO KNOWN FOOD ALLERGIES Unknown 07/13/2023 No Inactive Date Active LISINOPRIL RxNorm: 39170 02/12/2020 No Inactive Da te Active Metformin HCl Unknown 02/12/2020 No Inactive Cristiano e Active * NO KNOWN ENVIRONMENTAL ALLERGIES Unknown 07/13/2023 No Inactive Date Active Problems Condition Codes Effective Dates Condition St atus Candidal intertrigo ICD-10: B37.2 ICD-9: 112.3 06/13/2024 Active Hemorrhoids ICD-10: K64.9 ICD-9: 455.6 06/13/2024 Active Hyperlipidemia associated wi th type 2 diabetes mellitus ICD-10: E11.69 ICD-9: 250.80 06/13/2024 Active Hypertensive heart disease w ithout heart failure ICD-10: I11.9 ICD-9: 402.90 06/13/2024 Active Hypokalemia ICD-10: E87.6 ICD-9: 276.8 06/13/2024 Active Onychogryposis ICD-10: L60.2 ICD-9: 703.8 06/13/2024 Active Stage 2 chronic kidney disea se due to type 2 diabetes mellitus ICD-10: E11.22 ICD-9: 250.40 06/13/2024 Active Type 2 diabetes mellitus wit h diabetic polyneuropathy, with long-term current use of insulin ICD-10: E11.42 ICD-9: 250.60 06/13/2024 Active Advance care planning ICD-10: Z71.89 [...] E78. 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 of insulin ICD-10: Z79.4 [...] 200 mg tablet,extended release 24 hr RxNorm: 463237 Take 1 Tablet(s) Oral QD 06/19/19 25 No Stop Date Active pantoprazole 40 mg tablet,delayed release RxNorm: 347070 Take 1 Tablet(s) Oral QAM every morning 06/19/19 25 No Stop Date Active hydralazine 50 mg tablet RxNorm: 122075 Take 1 Tablet(s) Oral QID 06/19/19 25 No Stop Date Active carbamazepine 200 mg tablet RxNorm: 992517 Take 1 Tablet(s) Oral BID 06/19/19 25 No Stop Date Active amlodipine 10 mg tablet RxNorm: 930682 Take 1 Tablet(s) Oral QD 06/19/19 25 No Stop Date Active Eliquis 5 mg tablet RxNorm: 8067181 Take 1 Tablet(s) Oral BID 06/19/19 25 No Stop Date Active pen needle, diabetic 30 gauge x 3/16 RxNorm: Use 1 6 times per day w/insulin 06/14/19 25 026 Active pen needle, diabetic 30 gauge x 3/16 RxNorm: Use 1 needle 6 times per day w/insulin 06/14/19 25 025 Inactive nystatin 100,000 unit/gram topical powder RxNorm: 732352 Apply 1 Application Topical BID as needed abdominal/breast /groin folds 05/24/19 25 026 Active pregabalin 100 mg capsule RxNorm: 138828 Take 1 Capsule(s) Oral QAM every morning 05/22/19 025 Inactive nystatin 100,000 unit/gram topical powder RxNorm: 870978 Apply 1 Application Topical BID as needed abdominal/breast /groin folds 04/11/20 024 Inactive chlorthalidone 25 mg tablet RxNorm: 608350 Take 1 Tablet(s) Oral QAM every morning 04/06/20 No Stop Date Active pregabalin 150 mg capsule RxNorm: 441850 Take 1 Capsule(s) Oral QHS every night at bedtime 03/31/20 024 Inactive Vascepa 1 gram capsule RxNorm: 1601227 Take 2 Capsule(s) Oral BID 03/30/20 24 025 Active rosuvastatin 40 mg tablet RxNorm: 696232 1 TAB ORALLY EVERY EVENING (DX:CORONARY ARTERY DISEASE) 03/28/20 No Stop Date Active venlafaxine ER 75 mg capsule,extended release 24 hr RxNorm: 519731 3 CAPS (225MG) ORALLY DAILY (DX: MOOD DISORDER) 03/28/20 No Stop Date Active pregabalin 100 mg capsule RxNorm: 658757 Take 1 Capsule(s) Oral QAM every morning 03/20/20 024 Inactive cholecalciferol (vitamin D3) 1,250 mcg (50,000 unit) capsule RxNorm: 427881 Take 1 Capsule(s) Oral QW once a [...] Insulin 100 unit/mL (3 mL) subcutaneous RxNorm: 0769266 Inject 40 Unit(s) Subcutaneous BID 03/07/20 025 Inactive Please dispense one month supply. Humulin R U-500 (Concentrated) Insulin 500 unit/mL subcutaneous soln RxNorm: 851475 Inject 100 Unit(s) Subcutaneous AC before meals [...] PRN) to be use with new Accu [place] meter 03/04/20 Inactive ok to substitute with any covered alternative test strip FreeStyle Chema 2 Sensor kit RxNorm: Use UD as directed 03/02/20 025 Inactive FreeStyle Chema 2 Sensor kit RxNorm: Use UD as directed 03/02/20 Inactive Pen Needle 30 gauge x 516 RxNorm: Pen(s) Use 1 needle as directed TID 10/17/20 24 10/17/2 024 Inactive nystatin 100,000 unit/gram topical powder RxNorm: 705752 Apply 1 Application Topical BID as needed [...] (Concentrated) Insulin 500 unit/mL subcutaneous soln RxNorm: 826006 Inject 100 Unit(s) Subcutaneous TID 02/17/20 24 024 Inactive Humulin R U-500 (Concentrated) Insulin 500 unit/mL subcutaneous soln RxNorm: 771727 Inject 100 Unit(s) Subcutaneous TID 02/10/20 24 024 Inactive Basaglar KwikPen U-100 Insulin 100 unit/mL (3 mL) subcutaneous RxNorm: 4273921 Inject 30 Unit(s) Subcutaneous BID 02/10/20 24 024 Inactive Please dispense one month supply. pregabalin 100 mg capsule RxNorm: 809057 Take 1 Capsule(s) Oral QAM every morning 02/07/20 24 024 Inactive isosorbide mononitrate ER 60 mg tablet,extended release 24 hr RxNorm: 503438 Take 1 Tablet(s) Oral QD 02/01/20 24 025 Active aripiprazole 15 mg tablet RxNorm: 535477 Take 1/2 Tablet(s) Oral QD 02/01/20 24 025 Active torsemide 20 mg tablet RxNorm: 035042 1 TAB ORALLY DAILY (DX: EDEMA) 01/27/20 24 No Stop Date Active potassium chloride ER 20 mEq tablet,extended release(part/cryst) RxNorm: 5598224 2 TABS (40MEQ) ORALLY TWICE DAILY (DX: HYPOKALEMIA) 01/27/20 24 025 Inactive cephalexin 500 mg capsule RxNorm: 478528 Take 1 Capsule(s) Oral QID 12/17/19 24 Inactive cephalexin 500 mg capsule RxNorm: 159888 Take 1 Capsule(s) Oral QID 12/17/19 24 Inactive acetaminophen 500 mg tablet RxNorm: 485325 (MAX APAP:4GM/24HR) Take 1 Tablet(s) Oral TID as needed for pain 12/10/19 24 Inactive torsemide 20 mg tablet RxNorm: 559459 Take 1 Tablet(s) Oral QD 10/26/19 24 025 Inactive potassium chloride ER 20 mEq tablet,extended release RxNorm: 19800522 Take 2 Tablet(s) Oral BID 10/26/19 24 Inactive torsemide 20 mg tablet RxNorm: 965969 Take 1 Tablet(s) Oral QD 10/26/19 24 Inactive potassium chloride ER 20 mEq tablet,extended release RxNorm: 19800522 Take 2 Tablet(s) Oral BID 10/26/19 24 Inactive Artificial Tears (PF) 0.1 %-0.3 % drops in a dropperette RxNorm: 656572 Apply 1-2 Drop(s) Both eyes BID as needed 09/28/19 24 Inactive erythromycin 5 mg/gram (0.5 %) eye ointment RxNorm: 315145 Apply 1 Application Both eyes QHS every night at bedtime Instill ~1 cm ribbon into affected eye 09/28/19 24 Inactive Artificial Tears (PF) 0.1 %-0.3 % drops in a dropperette RxNorm: 368917 Apply 1-2 Drop(s) Both eyes BID as needed 09/28/19 24 Inactive erythromycin 5 mg/gram (0.5 %) eye ointment RxNorm: 311146 Apply 1 Application Both eyes QHS every night at bedtime Instill ~1 cm ribbon into affected eye 09/28/19 24 Inactive acetaminophen 500 mg tablet RxNorm: 421400 (MAX APAP:4GM/24HR) Take 1 Tablet(s) Oral TID as needed for pain 09/24/19 24 024 Inactive carvedilol 25 mg tablet RxNorm: 112312 Take 1 Tablet(s) Oral QD 09/08/19 24 No Stop Date Active pregabalin 100 mg capsule RxNorm: 644332 Take 1 Capsule(s) Oral QAM every morning 09/07/19 24 024 Inactive ezetimibe 10 mg tablet RxNorm: 787872 Take 1 Tablet(s) Oral QD 07/13/19 24 025 Inactive bisacodyl 10 mg rectal suppository RxNorm: 850861 Insert 1 Suppository Rectal QD as needed 07/13/19 24 No Stop Date Active polyethylene glycol 3350 17 gram/dose oral powder RxNorm: 131023 Take 17 Gram(s) Oral BID as needed mix in 4-8ox water 07/13/19 24 025 Inactive ketoconazole 2 % shampoo RxNorm: 160214 Apply 1 Application Topical UD as directed 07/13/19 No Stop Date Active Ozempic 1 mg/dose (4 mg/3 mL) subcutaneous pen injector RxNorm: 9734345 Inject 1 Milligram(s) Subcutaneous QW once a week 07/13/19 24 No Stop Date Active Guaifenesin AC 10 mg-100 mg/5 mL oral liquid RxNorm: 609334 Take 10 Milliliter(s) Oral Q4H every four hours as needed 07/13/19 24 No Stop Date Active ammonium lactate 12 % topical cream RxNorm: 720859 Apply 1 Application Topical BID 07/13/19 24 025 Inactive hydrocortisone 2.5 % topical cream RxNorm: 835386 Apply 1 Application Topical BID as needed 07/13/19 24 No Stop Date Active rosuvastatin 20 mg sprinkle capsule RxNorm: 2200159 Take 1 Capsule(s) Oral QD 07/13/19 24 025 Inactive rosuvastatin 40 mg tablet RxNorm: 548513 Take 1 Tablet(s) Oral QPM every evening 07/13/19 24 024 Inactive aripiprazole 15 mg tablet RxNorm: 066006 Take 1/2 Tablet(s) Oral QD 07/13/19 24 024 Inactive isosorbide mononitrate ER 60 mg tablet,extended release 24 hr RxNorm: 630076 Take 1 Tablet(s) Oral QD 07/13/19 24 024 Inactive Vascepa 1 gram capsule RxNorm: 3103873 Take 2 Capsule(s) Oral BID 07/13/19 24 024 Inactive venlafaxine ER 75 mg capsule,extended release 24 hr RxNorm: 572167 Take 3 Capsule(s) Oral QD 07/13/19 24 024 Inactive Basaglar KwikPen U-100 Insulin 100 unit/mL (3 mL) subcutaneous RxNorm: 1955338 Inject 30U SubQ twice daily 07/07/19 24 024 Inactive Please dispense one month supply. Basaglar KwikPen U-100 Insulin 100 unit/mL (3 mL) subcutaneous RxNorm: 7035822 Inject 30U SubQ twice daily 07/07/19 24 024 Inactive Please dispense one month supply. pregabalin 150 mg capsule RxNorm: 422253 Take 1 Capsule(s) Oral QHS every night at bedtime 07/05/19 24 024 Inactive pregabalin 150 mg capsule RxNorm: 302502 Take 1 Capsule(s) Oral QHS every night at bedtime 07/05/19 24 024 Inactive polyethylene glycol 3350 17 gram/dose oral powder RxNorm: 311700 Take 1 Packet Oral QD as needed (1 packet = 17g) mix with 4-8oz of liquid 06/15/19 24 024 Inactive bisacodyl 10 mg rectal suppository RxNorm: 069428 Insert one suppository per rectum once daily as needed for constipation 06/15/19 24 024 Inactive bisacodyl 10 mg rectal suppository RxNorm: 276967 Insert one suppository per rectum once daily as needed for constipation 06/15/19 24 024 Inactive pregabalin 100 mg capsule RxNorm: 416718 Take 1 Capsule(s) Oral QAM every morning 04/27/20 23 024 Inactive Levemir FlexPen 100 unit/mL (3 mL) solution subcutaneous insulin pen RxNorm: 563470 Inject 30 Unit(s) Subcutaneous BID 04/27/20 024 Inactive rosuvastatin 40 mg tablet RxNorm: 513910 Take 1 Tablet(s) Oral QPM every evening 04/16/20 024 Inactive D/C rosuvastatin 20mg venlafaxine ER 75 mg capsule,extended release 24 hr RxNorm: 344520 Take 3 Capsule(s) Oral QD 04/14/20 023 Inactive pregabalin 100 mg capsule RxNorm: 953106 Take 1 Capsule(s) Oral QAM every morning [...] strip clotrimazole 1 % topical cream RxNorm: 517098 Take apply topically to abdominal folds twice daily for 14 days 03/12/20 024 Inactive Ozempic 1 mg/dose (4 mg/3 mL) subcutaneous pen injector RxNorm: 5121671 Inject 1 Milligram(s) Subcutaneous QW once a week 03/11/20 023 Inactive rosuvastatin 20 mg tablet RxNorm: 390288 Take 1 Tablet(s) Oral QD 02/26/20 023 Inactive d/c pravastatin 80mg Ozempic 1 mg/dose (4 mg/3 mL) subcutaneous pen injector RxNorm: 9167696 Inject 1 Milligram(s) Subcutaneous QW once a week 02/20/20 23 023 Inactive pregabalin 150 mg capsule RxNorm: 590907 Take 1 Capsule(s) Oral HS at bed time 02/19/20 23 023 Inactive pregabalin 100 mg capsule RxNorm: 795164 Take 1 Capsule(s) Oral QAM every morning 02/18/20 23 023 Inactive venlafaxine ER 75 mg capsule,extended release 24 hr RxNorm: 474515 Take 3 Capsule(s) Oral QD 02/04/20 23 023 Inactive FreeStyle Chema 2 Sensor kit RxNorm: use as directed 02/04/20 23 023 Inactive FreeStyle Chema 2 Sensor kit RxNorm: use as directed 02/04/20 23 024 Inactive fluconazole 150 mg tablet RxNorm: 477769 Take 1 Tablet(s) Oral on day 3 and on day 6 02/03/20 23 024 Inactive venlafaxine ER 150 mg capsule,extended release 24 hr RxNorm: 294086 Take 1 Capsule(s) Oral QD 02/03/20 23 023 Inactive chlorthalidone 25 mg tablet RxNorm: 496207 Take 1 Tablet(s) Oral QAM every morning 02/03/20 024 Inactive acetaminophen 500 mg tablet RxNorm: 406936 1 TABLET ORALLY 3 TIMES DAILY (MAX APAP:4GM/24HR) 12/15/19 23 023 Inactive clotrimazole 1 % topical cream RxNorm: 977201 apply 1g topically to top of feet and in between toes BID 12/09/19 23 025 Inactive potassium chloride ER 20 mEq tablet,extended release RxNorm: 524037 Take 1 Tablet(s) Oral BID 12/09/19 23 024 Inactive d/c 20mEq once daily (sent from hospital) nystatin 100,000 unit/gram topical powder RxNorm: 288185 APPLY TO AFFECTED AREAS TOPICALLY 2 TIMES DAILY 11/21/19 23 023 Inactive Nystop 100,000 unit/gram topical powder RxNorm: 117592 Apply to abd folds, under breasts and L side of groin Topical BID x 14 days, then BID PRN 11/20/19 23 023 Inactive dx: yeast dermatitis [place] Ultra Strength 4 %-30 %-10 % topical cream RxNorm: 712114 Apply 1 Gram(s) Topical QID PRN to feet and legs for neuropathic pain 11/11/19 23 024 Inactive clotrimazole 1 % topical cream RxNorm: 210164 Apply 1/2 Gram(s) Topical BID Apply to affected areas of groin, periarea, and abdominal topically 2 times daily 11/10/19 023 Inactive hydrocortisone 2.5 % topical cream RxNorm: 449116 Apply 1/2 Gram(s) Topical BID as needed 11/10/19 024 Inactive Levemir FlexPen 100 unit/mL (3 mL) solution subcutaneous insulin pen RxNorm: 238918 Inject 30 Unit(s) Subcutaneous BID 10/07/19 023 Inactive Humulin R U-500 (Concentrated) Insulin 500 unit/mL subcutaneous soln RxNorm: 384841 Inject 100 Unit(s) Subcutaneous TID 10/07/19 024 Inactive Ozempic 0.25 mg or 0.5 mg (2 mg/3 mL) subcutaneous pen injector RxNorm: 4039933 Inject 1/2 Milligram(s) Subcutaneous QW once a week 10/07/19 024 Inactive aripiprazole 15 mg tablet RxNorm: 492376 1/2 TAB (7.5MG) ORALLY DAILY (DX:MAJOR DEPRESSIVE DISORDER) 09/23/19 023 Inactive Accu-Chek Guide test strips RxNorm: Use 1 Test Strip QID 09/15/19 23 023 Inactive ok to substitute with any covered alternative test strip Lancets,Thin 28 gauge RxNorm: Use 1 as directed QID 09/15/19 23 023 Inactive torsemide 20 mg tablet RxNorm: 070434 Take 1 Tablet(s) Oral BID 09/09/19 23 024 Inactive d/c once daily dosing carvedilol 25 mg tablet RxNorm: 905950 Take 1 Tablet(s) Oral QD 08/25/19 23 024 Inactive pregabalin 150 mg capsule RxNorm: 446533 1 Capsule(s) Oral HS at bed time 08/18/19 023 Inactive pregabalin 100 mg capsule RxNorm: 474103 1 Capsule(s) Oral QAM every morning 08/18/19 023 Inactive carvedilol 25 mg tablet RxNorm: 077605 1 Tablet(s) Oral QD 07/28/19 23 023 Inactive lisinopril 20 mg tablet RxNorm: 413800 Give 1 Tablet(s) Oral QD 07/28/19 23 023 Inactive Lyrica 150 mg capsule RxNorm: 636216 Take 1 Capsule(s) Oral QHS every night at bedtime 07/19/19 23 023 Inactive d/c 100mg dose Diflucan 150 mg tablet RxNorm: 958249 Take 1 Tablet(s) Oral QD repeat on day 3 and 6 07/19/19 23 023 Inactive pregabalin 100 mg capsule RxNorm: 048229 Take 1 Capsule(s) Oral QAM every morning 07/19/19 023 Inactive gatifloxacin 0.5 % eye drops RxNorm: 656062 Instill 1 Drop(s) as directed TID Instill 1 drop in to affected eye(s) starting 1 day prior to surgery and continue until gone (do not exceed 4 weeks). 07/13/19 23 023 Inactive carvedilol 25 mg tablet RxNorm: 099555 2 Tablet(s) Oral BID 07/13/19 023 Inactive Humulin R Regular U-100 Insulin 100 unit/mL injection solution RxNorm: 756457 85 Unit(s) Injection TID 07/13/19 023 Inactive ketorolac 0.5 % eye drops RxNorm: 711426 Instill 1 Drop(s) as directed QID Instill 1 drop into affected eye(s) 4 times daily starting 1 day prior to surgery and continue until gone (do not exceed 4 weeks). 07/13/19 23 023 Inactive Diflucan 150 mg tablet RxNorm: 397623 Take 1 Tablet(s) Oral QD repeat on day 3 and 6 06/30/19 23 023 Inactive Accu-Chek Guide test strips RxNorm: Use 1 Test Strip QID Use 1 test strip to monitor blood glucose 4 times daily and as needed. Dx:E11.42. 06/23/19 23 023 Inactive ok to substitute with any covered alternative test strip dextromethorphan-gu aifenesin 10 mg-100 mg/5 mL oral liquid RxNorm: 271524 Take 10 Milliliter(s) Oral every 4 hours as needed for cough 06/19/19 023 Inactive dextromethorphan-gu aifenesin 10 mg-100 mg/5 mL oral liquid RxNorm: 126581 Take 10 Milliliter(s) Oral every 4 hours as needed for cough 06/19/19 023 Inactive Lyrica 150 mg capsule RxNorm: 053611 Take 1 Capsule(s) Oral QHS every night at bedtime 06/18/19 023 Inactive d/c 100mg dose aripiprazole 15 mg tablet RxNorm: 698642 1/2 TAB (7.5MG) ORALLY DAILY (DX:MAJOR DEPRESSIVE DISORDER) 06/05/19 23 023 Inactive pregabalin 100 mg capsule RxNorm: 588999 1 Capsule(s) Oral QAM every morning 06/02/19 023 Inactive Banophen 50 mg capsule RxNorm: 1114572 Take 1 Capsule(s) Oral Q6H every 6 hours as needed 05/19/19 23 No Stop Date Active Novolog Flexpen U-100 Insulin aspart 100 unit/mL (3 mL) subcutaneous RxNorm: 5509946 Inject 10 Unit(s) Subcutaneous QHS every night at bedtime with nighttime snack 04/08/20 022 Inactive Novolog Flexpen U-100 Insulin aspart 100 unit/mL (3 mL) subcutaneous RxNorm: 5653924 Inject 42 Unit(s) Subcutaneous TID in addition to sliding scale 04/08/20 22 022 Inactive d/c 36u albuterol sulfate HFA 90 mcg/actuation aerosol inhaler RxNorm: 9051814 Take 2 Puff(s) Inhalation Q4H every four hours as needed as needed for SOB, cough, or wheezing 04/07/20 22 030 Active Banophen 50 mg capsule RxNorm: 9062711 Take 1 Capsule(s) Oral Q6H every 6 hours as needed 04/06/20 023 Inactive diphenhydramine 50 mg tablet RxNorm: 1711680 Take 1 Tablet(s) Oral Q6H every 6 hours as needed 04/06/20 22 022 Inactive diphenhydramine 50 mg tablet RxNorm: 2822944 1 Tablet(s) Oral Q6H every 6 hours as needed 04/06/20 22 022 Inactive Abilify 15 mg tablet RxNorm: 577443 1/2 Tablet(s) Oral QD 03/10/20 22 023 Inactive Shingrix (PF) 50 mcg/0.5 mL intramuscular suspension, kit RxNorm: 2050290 Administer 1/2 Milliliter(s) Intramuscular QD one time shingrix step 2 ( step 1 given 11/04/21) WITH needle - Nursing please administer upon arrival and once administered post a bridge message with date of administration, loan service officer, expiration date, and lot# so we can update [facility] 02/18/20 22 Inactive dispense with needle Shingrix (PF) 50 mcg/0.5 mL intramuscular suspension, kit RxNorm: 5524022 Administer 1/2 Milliliter(s) Intramuscular QD one time shingrix step 2 ( step 1 given 11/04/21) WITH needle - Nursing please administer upon arrival and once administered post a bridge message with date of administration, loan service officer, expiration date, and lot# so we can update [facility] 02/18/20 22 022 Inactive dispense with needle polyethylene glycol 3350 17 gram/dose oral powder RxNorm: 307269 Take 17=1 capful Gram(s) Oral QD mix with 4-8oz of liquid 01/08/20 22 025 Inactive take this in addition to BID prn order Lyrica 100 mg capsule RxNorm: 965163 Take 1 Capsule(s) Oral QAM every morning 01/08/20 22 022 Inactive d/c 50mg dose acetaminophen 500 mg tablet RxNorm: 220555 Take 1 Tablet(s) Oral TID 01/08/20 22 022 Inactive d/c PRN order Lyrica 150 mg capsule RxNorm: 988080 Take 1 Capsule(s) Oral QHS every night at bedtime 01/08/20 22 023 Inactive d/c 100mg dose Abilify 5 mg tablet RxNorm: 212778 Take 1 Tablet(s) Oral QD take 1 tab po QD #30 refill 5 dx: MDD 12/12/19 22 022 Inactive Abilify 5 mg tablet RxNorm: 557250 Take 1 Tablet(s) Oral QD take 1 tab po QD #30 refill 5 dx: MDD 12/12/19 22 022 Inactive Novolog Flexpen U-100 Insulin aspart 100 unit/mL (3 mL) subcutaneous RxNorm: 8486793 Inject 42 Unit(s) Subcutaneous TID in addition to sliding scale 12/10/19 22 022 Inactive d/c 36u chlorthalidone 25 mg tablet RxNorm: 841192 Take 1 Tablet(s) Oral QAM every morning 12/10/19 22 023 Inactive pregabalin 50 mg capsule RxNorm: 872089 Take 1 Capsule(s) Oral QAM every morning 11/12/19 22 022 Inactive tetanus-diphtheria toxoids-Td 2 Lf unit-2 Lf unit/0.5 mL IM suspension RxNorm: 139 Take 0.5 Miscellaneous Intramuscular 11/12/19 22 022 Inactive need tdap - nursing to administer upon arrival pregabalin 50 mg capsule RxNorm: 129017 Take 1 Capsule(s) Oral QAM every morning 10/16/19 22 022 Inactive pregabalin 50 mg capsule RxNorm: 979475 Take 1 Capsule(s) Oral QAM every morning 10/16/19 22 022 Inactive pregabalin 50 mg capsule RxNorm: 052133 1 Capsule(s) Oral QAM every morning 10/15/19 22 022 Inactive Shingrix (PF) 50 mcg/0.5 mL intramuscular suspension, kit RxNorm: 4120915 Administer 1/2 Milliliter(s) Intramuscular one time Nursing please administer upon arrival and once administered post a bridge message with date of administration, loan service officer, expiration date, and lot# so we can update [facility]. 10/09/19 22 022 Inactive shingrix step 1 Shingrix (PF) 50 mcg/0.5 mL intramuscular suspension, kit RxNorm: 9364688 Administer 1/2 Milliliter(s) Intramuscular one time Nursing please administer upon arrival and once administered post a bridge message with date of administration, loan service officer, expiration date, and lot# so we [...] aspart 100 unit/mL (3 mL) subcutaneous RxNorm: 0374841 Inject 10 Unit(s) Subcutaneous QHS every night at bedtime with nighttime snack 10/08/19 22 022 Inactive Shingrix (PF) 50 mcg/0.5 mL intramuscular suspension, kit RxNorm: 8320034 ADMINISTER 2-DOSE SERIES PER CDC GUIDELINES 10/08/19 22 022 Active Shingrix (PF) 50 mcg/0.5 mL intramuscular suspension, kit RxNorm: 9166639 ADMINISTER 2-DOSE SERIES PER CDC GUIDELINES 10/08/19 22 022 Inactive Novolog Flexpen U-100 Insulin aspart 100 unit/mL (3 mL) subcutaneous RxNorm: 5992194 Inject 36 Unit(s) Subcutaneous TID in addition to sliding scale 10/08/19 22 Inactive cholecalciferol (vitamin D3) 1,250 mcg (50,000 unit) capsule RxNorm: 353346 Take 1 Capsule(s) Oral QW once a week 10/08/19 Inactive Novofine Autocover 30 gauge x 1/3 needle RxNorm: Use 1 Miscellaneous UD as directed Use 1 needle as directed to administer insulin 5 times a day Dx:E11.42. 10/03/19 22 022 Inactive ok to substitute with any covered alternative pen needle benzoyl peroxide 10 % topical cleanser RxNorm: 604515 Apply 1 Application Topical QD apply to face, wash rinse and dry once daily (may change to QOD if drying) 08/19/19 22 022 Inactive (%covered by insurance) #60ml refill 11 dx: acne benzoyl peroxide 10 % topical cleanser RxNorm: 120246 Apply 1 Application Topical QD apply to face, wash rinse and dry once daily (may change to QOD if drying) 08/19/19 22 022 Inactive (%covered by insurance) #60ml refill 11 dx: acne benzoyl peroxide 10 % topical cleanser RxNorm: 832015 Apply 1 Application Topical QD apply to face, wash rinse and dry once daily (may change to QOD if drying) 08/19/19 22 022 Inactive (%covered by insurance) #60ml refill 11 dx: acne Lyrica 50 mg capsule RxNorm: 864540 Take 1 Capsule(s) Oral QAM every morning Take 1 capsule by mouth once daily 08/19/19 22 022 Inactive benzoyl peroxide 10 % topical cleanser RxNorm: 475211 Apply 1 Application Topical QD apply to face, wash rinse and dry once daily (may change to QOD if drying) 08/19/19 022 Inactive (%covered by insurance) #60ml refill 11 dx: acne Lyrica 100 mg capsule RxNorm: 237598 Take 1 Capsule(s) Oral QHS every night at bedtime Take 1 capsule by mouth once daily at bedtime 08/19/19 22 022 Inactive Lyrica 100 mg capsule RxNorm: 401013 Take 1 Capsule(s) Oral QHS every night at bedtime Take 1 capsule by mouth once daily at bedtime 08/16/19 22 022 Inactive Lyrica 50 mg capsule RxNorm: 252471 Take 1 Capsule(s) Oral QAM every morning Take 1 capsule by mouth once daily 08/16/19 22 Inactive Levemir FlexTouch U-100 Insulin 100 unit/mL (3 mL) subcutaneous pen RxNorm: 974441 Inject 86 Unit(s) Subcutaneous BID 08/05/19 22 022 Inactive d/c 83units BID Lyrica 100 mg capsule RxNorm: 903155 Take 1 Capsule(s) Oral QHS every night at bedtime Take 1 capsule by mouth once daily at bedtime 07/14/19 22 022 Inactive Lyrica 50 mg capsule RxNorm: 975019 Take 1 Capsule(s) Oral QAM every morning Take 1 capsule by mouth once daily 07/14/19 22 022 Inactive Levemir FlexTouch U-100 Insulin 100 unit/mL (3 mL) subcutaneous pen RxNorm: 737272 Inject 83 Unit(s) Subcutaneous BID 07/08/19 22 [...] test strip hydralazine 50 mg tablet RxNorm: 162195 Take 1 Tablet(s) Oral QID 05/05/20 Inactive venlafaxine ER 225 mg tablet,extended release 24 hr RxNorm: 276821 Take 1 Tablet(s) Oral QD 05/05/20 Inactive venlafaxine ER 225 mg tablet,extended release 24 hr RxNorm: 068510 Take 1 Tablet(s) Oral QD 05/05/20 022 Inactive isosorbide mononitrate ER 30 mg tablet,extended release 24 hr RxNorm: 473701 Take 1 Tablet(s) Oral QD 05/05/20 024 Inactive hydralazine 50 mg tablet RxNorm: 535107 Take 1 Tablet(s) Oral QID 05/05/20 Inactive aspirin 81 mg tablet,delayed release RxNorm: 603914 Take 1 Tablet(s) Oral QD 03/31/20 022 Inactive Vitamin D2 1,250 mcg (50,000 unit) capsule RxNorm: 6198250 Take 1 Capsule(s) Oral QW once a week x 12 weeks 03/31/20 022 Inactive Vitamin D2 1,250 mcg (50,000 unit) capsule RxNorm: 4483770 Take 1 Capsule(s) Oral QW once a week 03/31/20 021 Inactive Zetia 10 mg tablet RxNorm: 305517 Take 1 Tablet(s) Oral QD 03/31/20 024 Inactive Zetia 10 mg tablet RxNorm: 076403 Take 1 Tablet(s) Oral QD 03/31/20 021 Inactive hydralazine 25 mg tablet RxNorm: 599195 Take 1 Tablet(s) Oral QID 03/31/20 21 021 Inactive hydralazine 25 mg tablet RxNorm: 986743 Take 1 Tablet(s) Oral QID 03/31/20 021 Inactive hydralazine 10 mg tablet RxNorm: 179812 Take 1 Tablet(s) Oral QID 03/03/20 021 Inactive cephalexin 500 mg tablet RxNorm: 165106 Take 1 Tablet(s) Oral QID 02/27/20 021 Inactive cephalexin 500 mg tablet RxNorm: 801809 Take 1 Tablet(s) Oral QID 02/27/20 021 Inactive lisinopril 40 mg tablet RxNorm: 937917 Take 1 Tablet(s) Oral QD 02/11/20 023 Inactive Eliquis 5 mg tablet RxNorm: 6964459 Take 1 Tablet(s) Oral BID 01/05/20 21 025 Inactive Eliquis 5 mg tablet RxNorm: 0851208 Take 2 Tablet(s) Oral QD 01/01/20 21 021 Inactive Lyrica 50 mg capsule RxNorm: 890318 Take 1 Capsule(s) Oral QAM every morning 12/24/19 021 Inactive Lyrica 100 mg capsule RxNorm: 030417 Take 1 Capsule(s) Oral QHS every night at bedtime 12/24/19 021 Inactive clotrimazole 1 % topical cream RxNorm: 353964 Apply to right foot and toes Topical BID 12/04/19 21 023 Inactive metoprolol succinate ER 200 mg tablet,extended release 24 hr RxNorm: 410546 Take 1 Tablet(s) Oral QD 12/04/19 023 Inactive ciprofloxacin 500 mg tablet RxNorm: 760444 Take 1 Tablet(s) Oral QD 11/30/19 21 021 Inactive DX ofloxacin otic drops Accu-Chek Guide test strips RxNorm: USE 1 TO CHECK GLUCOSE 4 TIMES DAILY AND NEEDED 11/15/19 21 023 Inactive Blood Glucose Test strips RxNorm: Use 1 Test Strip QID at PRN 11/05/19 21 023 Inactive E11.42 lisinopril 30 mg tablet RxNorm: 643627 Take 1 Tablet(s) Oral QD 10/30/19 21 021 Inactive lisinopril 20 mg tablet RxNorm: 801852 Take 1 Tablet(s) Oral QD 10/23/19 21 021 Inactive lisinopril 20 mg tablet RxNorm: 152131 Take 1 Tablet(s) Oral QD 10/23/19 21 021 Inactive lisinopril 10 mg tablet RxNorm: 931908 Take 1 Tablet(s) Oral QD 10/02/19 21 021 Inactive icosapent ethyl 1 gram capsule RxNorm: 0299796 Take 2 Capsule(s) (2 gm) Oral BID with meals 09/12/19 024 Inactive Okay to dispense one 2gm tab if you have that available. icosapent ethyl 1 gram capsule RxNorm: 2907271 Take 2 Capsule(s) Oral BID 09/12/19 21 021 Inactive Okay to dispense one 2gm tab if you have that available. amlodipine 10 mg tablet RxNorm: 652444 Take 1 Tablet(s) Oral QD 09/04/19 21 021 Inactive aspirin 81 mg tablet,delayed release RxNorm: 265171 Take 1 Tablet(s) Oral QD 09/04/19 21 021 Inactive Levemir FlexTouch U-100 Insulin 100 unit/mL (3 mL) subcutaneous pen RxNorm: 090224 Inject 150 Unit(s) Subcutaneous BID 09/04/19 21 022 Inactive venlafaxine ER 150 mg tablet,extended release 24 hr RxNorm: 224850 Take 1 Tablet(s) Oral QD 09/04/19 21 021 Inactive clotrimazole-betame thasone 1 %-0.05 % topical cream RxNorm: 723478 Apply to rash on red area on left abdomen/chest Topical BID 08/10/19 21 021 Inactive amlodipine 5 mg tablet RxNorm: 016178 Take 1 Tablet(s) Oral QD 07/31/19 21 021 Inactive cephalexin 500 mg tablet RxNorm: 427401 Take 1 Tablet(s) Oral BID BID - Twice Daily 07/31/19 21 021 Inactive Start 08/01/20 pantoprazole 40 mg tablet,delayed release RxNorm: 982535 Take 1 Tablet(s) Oral QAM every morning 07/08/19 025 Inactive senna 8.6 mg tablet RxNorm: 900991 Take 1 Tablet(s) Oral QD 07/08/19 21 025 Inactive carbamazepine 200 mg tablet RxNorm: 194978 Take 1 Tablet(s) Oral BID 07/08/19 21 025 Inactive clopidogrel 75 mg tablet RxNorm: 256764 Take 1 Tablet(s) Oral QD 07/08/19 21 021 Inactive Blood Glucose Test strips RxNorm: Use 1 Test Strip QID at PRN 07/08/19 21 Inactive E11.42 Novolog Flexpen U-100 Insulin aspart 100 unit/mL (3 mL) subcutaneous RxNorm: 5844056 Administer per sliding scale Milliliter(s) Subcutaneous TID 151-200: 10 u; 201-250: 20 u; 251-300: 30 u; 301-350: 40 u; 351-400: 50 u. 07/08/19 21 022 Inactive lisinopril 5 mg tablet RxNorm: 101772 Take 1 Tablet(s) Oral QD 07/08/19 021 Inactive Novolog Flexpen U-100 Insulin aspart 100 unit/mL (3 mL) subcutaneous RxNorm: 7292373 Inject 85 Unit(s) Subcutaneous TID 07/08/19 022 Inactive pravastatin 80 mg tablet RxNorm: 964777 Take 1 Tablet(s) Oral QHS every night at bedtime 07/08/19 21 023 Inactive clotrimazole 1 % topical cream RxNorm: 562636 Apply to bilateral groin areas Topical BID 07/08/19 21 022 Inactive metoprolol succinate ER 200 mg tablet,extended release 24 hr RxNorm: 909026 Take 1 Tablet(s) Oral QD 07/08/19 21 021 Inactive Vitamin D3 25 mcg (1,000 unit) tablet RxNorm: 923156 Take 1 Tablet(s) Oral QD 07/08/19 21 021 Inactive isosorbide dinitrate 30 mg tablet RxNorm: 373423 Take 1 Tablet(s) Oral QD 07/08/19 21 021 Inactive Levemir FlexTouch U-100 Insulin 100 unit/mL (3 mL) subcutaneous pen RxNorm: 201663 Inject 140 Unit(s) Subcutaneous BID 07/08/19 21 021 Inactive torsemide 20 mg tablet RxNorm: 224093 Take 1 Tablet(s) Oral QD 07/08/19 21 023 Inactive venlafaxine 75 mg tablet RxNorm: 667303 Take 1 Tablet(s) Oral QD 07/08/19 21 021 Inactive acetaminophen 500 mg tablet RxNorm: 336584 Take 1 Tablet(s) Oral TID as needed for headache 06/18/19 21 021 Inactive acetaminophen 500 mg tablet RxNorm: 487287 Take 1 Tablet(s) Oral TID as needed for headache 06/18/19 021 Inactive Lyrica 100 mg capsule RxNorm: 508079 Take 1 Capsule(s) Oral QHS every night at bedtime 06/11/19 21 021 Inactive Lyrica 50 mg capsule RxNorm: 859872 Take 1 Capsule(s) Oral QAM every morning 06/10/19 21 021 Inactive hydrocortisone 2.5 % topical cream RxNorm: 569172 Apply to bilateral groin creases Topical BID 05/15/20 20 021 Inactive clotrimazole 1 % topical cream RxNorm: 589033 Apply to bilateral groin areas Topical BID 05/15/20 20 021 Inactive Lyrica 50 mg capsule RxNorm: 144122 Take 1 Capsule(s) Oral QAM every morning 05/14/20 20 020 Inactive Lyrica 100 mg capsule RxNorm: 887130 Take 1 Capsule(s) Oral QHS every night [...] Inactive Nystop 100,000 unit/gram topical powder RxNorm: 514964 Apply to abd folds, under breasts and L side of groin Topical BID x 14 days, then BID PRN 04/08/20 20 Inactive dx: yeast dermatitis Lyrica 100 mg capsule RxNorm: 795039 Take 1 Capsule(s) Oral QHS every night at bedtime 03/13/20 20 Inactive Lyrica 50 mg capsule RxNorm: 087784 Take 1 Capsule(s) Oral QAM every morning 03/13/20 20 Inactive ketoconazole 2 % shampoo RxNorm: 393607 Apply Topical two times a week with showers 03/11/20 20 Inactive cholecalciferol (vitamin D3) 50 mcg (2,000 unit) tablet RxNorm: 845448 Take 1 Tablet(s) Oral QD 03/11/20 20 021 Inactive Zetia 10 mg tablet RxNorm: 886176 Take 1 Tablet(s) Oral QD 03/07/20 20 021 Inactive Zetia 10 mg tablet RxNorm: 052623 Take 1 Tablet(s) Oral QD 03/07/20 20 Inactive Lyrica 50 mg capsule RxNorm: 593811 Take 1 Capsule(s) Oral QAM every morning 02/15/20 20 Inactive Lyrica 100 mg capsule RxNorm: 716278 Take 1 Capsule(s) Oral QHS every night at bedtime 02/15/20 20 Inactive Lyrica 100 mg capsule RxNorm: 666062 Take 1 Capsule(s) Oral QHS every night at bedtime 10/06/05 19 020 Inactive Lyrica 50 mg capsule RxNorm: 797980 Take 1 Capsule(s) Oral QAM every morning 02/15/20 020 Inactive metoprolol succinate ER 200 mg tablet,extended release 24 hr RxNorm: 367246 Take 1 Tablet(s) Oral QD 08/12/19 025 Inactive loperamide 2 mg capsule RxNorm: 449012 Take 1 Capsule(s) Oral QID as needed 09/06/19 025 Inactive hydralazine 50 mg tablet RxNorm: 902225 Take 1 Tablet(s) Oral QID 08/12/19 025 Inactive venlafaxine ER 75 mg capsule,extended release 24 hr RxNorm: 171891 Take 3 Capsule(s) Oral QD 06/12/19 023 Inactive polyethylene glycol 3350 17 gram/dose oral powder RxNorm: 898629 Take 17=1 capful Gram(s) Oral BID as needed mix with 4-8oz of liquid 06/12/19 024 Inactive icosapent ethyl 1 gram capsule RxNorm: 8707206 Take 2 Capsule(s) (2 gm) Oral BID with meals 10/07/19 023 Inactive Okay to dispense one 2gm tab if you have that available. Levemir FlexTouch U-100 Insulin 100 unit/mL (3 mL) subcutaneous pen RxNorm: 891127 Inject 80 Unit(s) Subcutaneous BID 07/14/19 023 Inactive Soft Touch Lancets RxNorm: miscellaneous 03/04/20 24 025 Inactive Novolog Flexpen U-100 Insulin aspart 100 unit/mL (3 mL) subcutaneous RxNorm: 6225092 Insert 30 Unit(s) Subcutaneous TID with meals [...] Planned Activity Notes Codes Status Date Referral: [facility]Imaging WPtel: [address] [facility] [place] Referral Appointment Scheduled 10/20/2024 Referral: [facility]/Endocrinology WPtel: [address] [facility] 3 [id number] [place] Referral No Records Received 07/10/2024 Referral: [facility] WPtel: [address], [address] [id number] [place] Referral Records Received 09/21/2022 Referral: [facility] WPtel: [address] [facility] [address] [id number] [place] Referral Completed 05/28/2021 Referral: General Cardiology [...] Sister Jyotsna involved in his care cell# [phone] Guardian: Giulia (tapan met in person 09/01/21), [...] appointment 05.26.2024 with Jessa Webster MD at [facility]. Start Pioglitazone 15 mg QD. Stop Basaglar insulin. Increase Ozempic 2 mg once wkly. Continue Humalin R U-500 100 units with meals TID. FOLLOW UP 2 MONTHS. If BG >400 add 50 units to next scheduled dose of Humalin R U 500 insulin 06/12/2024
--- OUTSIDE RECORDS SUMMARY | 2024-10-19 19:16 | XMS_ITS | CCD ---
Author Name Cecilio Durham Address [address] [facility] [address] [place] [address] Phone Organization [facility] Phone Care Team Providers Care Health Education Specialist Name Role Phone Harrison Durham Primary Care Provider Leona vailable Unavailable Chronic Care Management Unavaila ble Summary Purpose DataExchange Insurance Providers Payer name Policy type / Coverage type Covered libertarian ID Effective Begin Date Effective End Date Medicare [place] Medicare Part B [id number] Unknown Unknown Medicaid [place] Medicare Part B [id number] Unknown Unknown Family history Sister Brittany Suggs [...] on file 07/11/[address]: 973480089 Never smoker 01/16 Sexually Active? Unknown No [...] Nursing Home 09/03/[address]: 993492108 No Alcohol Consum ption 09/02/2020 Allergies, Adverse Reactions, Alerts Substance Reaction Codes Entered Date Inactivated Date Status * NO KNOWN FOOD ALLERGIES Unknown 07/13/2023 No Inactive Date Active LISINOPRIL RxNorm: 00423 02/12/2020 No Inactive Da te Active Metformin HCl Unknown 02/12/2020 No Inactive Cristiano e Active * NO KNOWN ENVIRONMENTAL ALLERGIES Unknown 07/13/2023 No Inactive Date Active Problems Condition Codes Effective Dates Condition St atus Body mass index [BMI] 60.0-69.9, adult SNOMED CT: 245296511 ICD-10: Z68.44 ICD-9: V85.44 08/08/2024 Active 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 ICD-10: K59.01 ICD-9: 564.01 08/08/2024 Active Mixed incontinence SNOMED CT: 69700316 ICD-10: N39.46 ICD-9: 788.33 08/08/2024 Active Type 2 diabetes mellitus wit h diabetic polyneuropathy, with long-term current use of insulin ICD-10: E11.42 ICD-9: 250.60 08/08/2024 Active Diabetic neuropathy associat ed with [...] 701.9 09/07/2023 Resolved Coronary artery disease involving [place] coronary artery of [place] heart, angina presence unspecified ICD-10: I25.10 [...] terminal (current) use of insulin ICD-10: Z79.4 02/10/2022 [...] Fill Instructions senna 8.6 mg tablet RxNorm: 522745 Take 1 Tablet(s) Oral QD as needed for constipation on day 2 of no bowel movement 08/09/19 25 025 Inactive Miralax 17 gram/dose oral powder RxNorm: 088091 Administer 17 Gram(s) Oral QD as needed for constipation on day 3 of no bowel movement 08/09/19 25 025 Inactive senna 8.6 mg tablet RxNorm: 344673 Take 1 Tablet(s) Oral QD as needed for constipation on day 2 of no bowel movement 08/09/19 25 025 Inactive Miralax 17 gram/dose oral powder RxNorm: 270538 Administer 17 Gram(s) Oral QD as needed for constipation on day 3 of no bowel movement 08/09/19 25 025 Inactive pregabalin 100 mg capsule RxNorm: 380206 Take 1 Capsule(s) Oral QAM every morning [...] (Concentrated) Insulin 500 unit/mL subcutaneous soln RxNorm: 407560 Inject 100 Unit(s) Subcutaneous AC before meals Three times daily before meals. 07/24/19 25 025 Inactive ammonium lactate 12 % topical cream RxNorm: 068426 Apply 1 Application Topical BID 07/20/19 25 No Stop Date Active ezetimibe 10 mg tablet RxNorm: 033928 Take 1 Tablet(s) Oral QD 07/18/19 25 No Stop Date Active senna 8.6 mg tablet RxNorm: 167530 Take 1 Tablet(s) Oral QD 07/18/19 25 025 Inactive metoprolol succinate ER 200 mg tablet,extended release 24 hr RxNorm: 968683 Take 1 Tablet(s) Oral QD 06/19/19 25 No Stop Date Active pantoprazole 40 mg tablet,delayed release RxNorm: 506231 Take 1 Tablet(s) Oral QAM every morning 06/19/19 25 No Stop Date Active hydralazine 50 mg tablet RxNorm: 431370 Take 1 Tablet(s) Oral QID 06/19/19 25 No Stop Date Active carbamazepine 200 mg tablet RxNorm: 115802 Take 1 Tablet(s) Oral BID 06/19/19 25 No Stop Date Active amlodipine 10 mg tablet RxNorm: 972443 Take 1 Tablet(s) Oral QD 06/19/19 25 No Stop Date Active Eliquis 5 mg tablet RxNorm: 3643446 Take 1 Tablet(s) Oral BID 06/19/19 25 No Stop Date Active pen needle, diabetic 30 gauge x 3/16 RxNorm: Use 1 6 times per day w/insulin 06/14/19 25 026 Active pen needle, diabetic 30 gauge x 3/16 RxNorm: Use 1 needle 6 times per day w/insulin 06/14/19 25 025 Inactive nystatin 100,000 unit/gram topical powder RxNorm: 729112 Apply 1 Application Topical BID as needed abdominal/breast /groin folds 05/24/19 25 026 Active pregabalin 100 mg capsule RxNorm: 620874 Take 1 Capsule(s) Oral QAM every morning 05/22/19 25 025 Inactive nystatin 100,000 unit/gram topical powder RxNorm: 322176 Apply 1 Application Topical BID as needed abdominal/breast /groin folds 04/11/20 24 024 Inactive chlorthalidone 25 mg tablet RxNorm: 837187 Take 1 Tablet(s) Oral QAM every morning 04/06/20 No Stop Date Active pregabalin 150 mg capsule RxNorm: 105953 Take 1 Capsule(s) Oral QHS every night at bedtime 03/31/20 024 Inactive Vascepa 1 gram capsule RxNorm: 6103859 Take 2 Capsule(s) Oral BID 03/30/20 24 025 Active rosuvastatin 40 mg tablet RxNorm: 196046 1 TAB ORALLY EVERY EVENING (DX:CORONARY ARTERY DISEASE) 03/28/20 No Stop Date Active venlafaxine ER 75 mg capsule,extended release 24 hr RxNorm: 581493 3 CAPS (225MG) ORALLY DAILY (DX: MOOD DISORDER) 03/28/20 No Stop Date Active pregabalin 100 mg capsule RxNorm: 909377 Take 1 Capsule(s) Oral QAM every morning 03/20/20 24 024 Inactive cholecalciferol (vitamin D3) 1,250 mcg (50,000 unit) capsule RxNorm: 632409 Take 1 Capsule(s) Oral QW once a week 03/15/20 24 10/24/2 025 Active Lancets,Thin 28 gauge RxNorm: Use 1 as directed TID lancet 03/08/20 Inactive Lancets,Thin 28 gauge RxNorm: Use 1 as directed TID lancet 03/08/20 Inactive Pen Needle 30 gauge x 516 [...] Insulin 100 unit/mL (3 mL) subcutaneous RxNorm: 6150674 Inject 40 Unit(s) Subcutaneous BID 03/07/20 Inactive Please dispense one month supply. Humulin R U-500 (Concentrated) Insulin 500 unit/mL subcutaneous soln RxNorm: 402902 Inject 100 Unit(s) Subcutaneous AC before meals [...] PRN) to be use with new Accu [place] meter 03/04/20 Inactive ok to substitute with any covered alternative test strip FreeStyle Chema 2 Sensor kit RxNorm: Use UD as directed 03/02/20 Inactive Pen Needle 30 gauge x 516 RxNorm: Pen(s) Use 1 needle as directed TID 03/02/20 24 Inactive nystatin 100,000 unit/gram topical powder RxNorm: 695709 Apply 1 Application Topical BID as needed abdominal/breast /groin folds 03/02/20 24 Inactive FreeStyle Chema 2 Sensor kit RxNorm: [...] (Concentrated) Insulin 500 unit/mL subcutaneous soln RxNorm: 527251 Inject 100 Unit(s) Subcutaneous TID 02/17/20 24 024 Inactive Humulin R U-500 (Concentrated) Insulin 500 unit/mL subcutaneous soln RxNorm: 585511 Inject 100 Unit(s) Subcutaneous TID 02/10/20 24 024 Inactive Basaglar KwikPen U-100 Insulin 100 unit/mL (3 mL) subcutaneous RxNorm: 5071403 Inject 30 Unit(s) Subcutaneous BID 02/10/20 24 024 Inactive Please dispense one month supply. pregabalin 100 mg capsule RxNorm: 334796 Take 1 Capsule(s) Oral QAM every morning 02/07/20 24 024 Inactive isosorbide mononitrate ER 60 mg tablet,extended release 24 hr RxNorm: 304546 Take 1 Tablet(s) Oral QD 02/01/20 24 025 Active aripiprazole 15 mg tablet RxNorm: 372210 Take 1/2 Tablet(s) Oral QD 02/01/20 24 025 Active torsemide 20 mg tablet RxNorm: 486559 1 TAB ORALLY DAILY (DX: EDEMA) 01/27/20 24 No Stop Date Active potassium chloride ER 20 mEq tablet,extended release(part/cryst) RxNorm: 7011962 2 TABS (40MEQ) ORALLY TWICE DAILY (DX: HYPOKALEMIA) 01/27/20 24 Inactive cephalexin 500 mg capsule RxNorm: 758595 Take 1 Capsule(s) Oral QID 12/17/19 24 024 Inactive cephalexin 500 mg capsule RxNorm: 715822 Take 1 Capsule(s) Oral QID 12/17/19 24 024 Inactive acetaminophen 500 mg tablet RxNorm: 304730 (MAX APAP:4GM/24HR) Take 1 Tablet(s) Oral TID as needed for pain 12/10/19 24 Inactive torsemide 20 mg tablet RxNorm: 981996 Take 1 Tablet(s) Oral QD 10/26/19 24 Inactive potassium chloride ER 20 mEq tablet,extended release RxNorm: 601009 Take 2 Tablet(s) Oral BID 10/26/19 24 024 Inactive torsemide 20 mg tablet RxNorm: 160518 Take 1 Tablet(s) Oral QD 10/26/19 24 025 Inactive potassium chloride ER 20 mEq tablet,extended release RxNorm: 108723 Take 2 Tablet(s) Oral BID 10/26/19 24 025 Inactive Artificial Tears (PF) 0.1 %-0.3 % drops in a dropperette RxNorm: 190257 Apply 1-2 Drop(s) Both eyes BID as needed 09/28/19 24 025 Inactive erythromycin 5 mg/gram (0.5 %) eye ointment RxNorm: 910781 Apply 1 Application Both eyes QHS every night at bedtime Instill ~1 cm ribbon into affected eye 09/28/19 24 024 Inactive Artificial Tears (PF) 0.1 %-0.3 % drops in a dropperette RxNorm: 107633 Apply 1-2 Drop(s) Both eyes BID as needed 09/28/19 24 024 Inactive erythromycin 5 mg/gram (0.5 %) eye ointment RxNorm: 682869 Apply 1 Application Both eyes QHS every night at bedtime Instill ~1 cm ribbon into affected eye 09/28/19 24 024 Inactive acetaminophen 500 mg tablet RxNorm: 886423 (MAX APAP:4GM/24HR) Take 1 Tablet(s) Oral TID as needed for pain 09/24/19 24 024 Inactive carvedilol 25 mg tablet RxNorm: 284942 Take 1 Tablet(s) Oral QD 09/08/19 24 No Stop Date Active pregabalin 100 mg capsule RxNorm: 944276 Take 1 Capsule(s) Oral QAM every morning 09/07/19 24 024 Inactive bisacodyl 10 mg rectal suppository RxNorm: 793165 Insert 1 Suppository Rectal QD as needed 07/13/19 24 No Stop Date Active ketoconazole 2 % shampoo RxNorm: 326145 Apply 1 Application Topical UD as directed 07/13/19 24 No Stop Date Active Ozempic 1 mg/dose (4 mg/3 mL) subcutaneous pen injector RxNorm: 7976992 Inject 1 Milligram(s) Subcutaneous QW once a week 07/13/19 24 No Stop Date Active Guaifenesin AC 10 mg-100 mg/5 mL oral liquid RxNorm: 994342 Take 10 Milliliter(s) Oral Q4H every four hours as needed 07/13/19 24 No Stop Date Active hydrocortisone 2.5 % topical cream RxNorm: 657896 Apply 1 Application Topical BID as needed 07/13/19 24 No Stop Date Active rosuvastatin 20 mg sprinkle capsule RxNorm: 5368312 Take 1 Capsule(s) Oral QD 07/13/19 24 025 Inactive rosuvastatin 40 mg tablet RxNorm: 232823 Take 1 Tablet(s) Oral QPM every evening 07/13/19 24 024 Inactive ezetimibe 10 mg tablet RxNorm: 745712 Take 1 Tablet(s) Oral QD 07/13/19 24 025 Inactive polyethylene glycol 3350 17 gram/dose oral powder RxNorm: 271212 Take 17 Gram(s) Oral BID as needed mix in 4-8ox water 07/13/19 24 025 Inactive aripiprazole 15 mg tablet RxNorm: 530998 Take 1/2 Tablet(s) Oral QD 07/13/19 24 024 Inactive isosorbide mononitrate ER 60 mg tablet,extended release 24 hr RxNorm: 479930 Take 1 Tablet(s) Oral QD 07/13/19 24 024 Inactive ammonium lactate 12 % topical cream RxNorm: 831718 Apply 1 Application Topical BID 07/13/19 24 025 Inactive Vascepa 1 gram capsule RxNorm: 6072558 Take 2 Capsule(s) Oral BID 07/13/19 24 024 Inactive venlafaxine ER 75 mg capsule,extended release 24 hr RxNorm: 641524 Take 3 Capsule(s) Oral QD 07/13/19 24 024 Inactive Basaglar KwikPen U-100 Insulin 100 unit/mL (3 mL) subcutaneous RxNorm: 9373040 Inject 30U SubQ twice daily 07/07/19 24 024 Inactive Please dispense one month supply. Basaglar KwikPen U-100 Insulin 100 unit/mL (3 mL) subcutaneous RxNorm: 9101585 Inject 30U SubQ twice daily 07/07/19 24 024 Inactive Please dispense one month supply. pregabalin 150 mg capsule RxNorm: 780607 Take 1 Capsule(s) Oral QHS every night at bedtime 07/05/19 24 024 Inactive pregabalin 150 mg capsule RxNorm: 649332 Take 1 Capsule(s) Oral QHS every night at bedtime 07/05/19 24 024 Inactive polyethylene glycol 3350 17 gram/dose oral powder RxNorm: 890735 Take 1 Packet Oral QD as needed (1 packet = 17g) mix with 4-8oz of liquid 06/15/19 24 024 Inactive bisacodyl 10 mg rectal suppository RxNorm: 808970 Insert one suppository per rectum once daily as needed for constipation 06/15/19 24 024 Inactive bisacodyl 10 mg rectal suppository RxNorm: 276338 Insert one suppository per rectum once daily as needed for constipation 06/15/19 24 024 Inactive pregabalin 100 mg capsule RxNorm: 107333 Take 1 Capsule(s) Oral QAM every morning 04/27/20 024 Inactive Levemir FlexPen 100 unit/mL (3 mL) solution subcutaneous insulin pen RxNorm: 625759 Inject 30 Unit(s) Subcutaneous BID 04/27/20 024 Inactive rosuvastatin 40 mg tablet RxNorm: 959412 Take 1 Tablet(s) Oral QPM every evening 04/16/20 024 Inactive D/C rosuvastatin 20mg venlafaxine ER 75 mg capsule,extended release 24 hr RxNorm: 794164 Take 3 Capsule(s) Oral QD 04/14/20 023 Inactive pregabalin 100 mg capsule RxNorm: 952709 Take 1 Capsule(s) Oral QAM every morning [...] strip clotrimazole 1 % topical cream RxNorm: 483301 Take apply topically to abdominal folds twice daily for 14 days 03/12/20 024 Inactive Ozempic 1 mg/dose (4 mg/3 mL) subcutaneous pen injector RxNorm: 3567745 Inject 1 Milligram(s) Subcutaneous QW once a week 03/11/20 023 Inactive rosuvastatin 20 mg tablet RxNorm: 871993 Take 1 Tablet(s) Oral QD 02/26/20 023 Inactive d/c pravastatin 80mg Ozempic 1 mg/dose (4 mg/3 mL) subcutaneous pen injector RxNorm: 3612192 Inject 1 Milligram(s) Subcutaneous QW once a week 02/20/20 23 023 Inactive pregabalin 150 mg capsule RxNorm: 581821 Take 1 Capsule(s) Oral HS at bed time 02/19/20 23 023 Inactive pregabalin 100 mg capsule RxNorm: 982712 Take 1 Capsule(s) Oral QAM every morning 02/18/20 23 023 Inactive venlafaxine ER 75 mg capsule,extended release 24 hr RxNorm: 338952 Take 3 Capsule(s) Oral QD 02/04/20 23 023 Inactive FreeStyle Chema 2 Sensor kit RxNorm: use as directed 02/04/20 23 023 Inactive FreeStyle Chema 2 Sensor kit RxNorm: use as directed 02/04/20 23 024 Inactive fluconazole 150 mg tablet RxNorm: 947530 Take 1 Tablet(s) Oral on day 3 and on day 6 02/03/20 23 024 Inactive venlafaxine ER 150 mg capsule,extended release 24 hr RxNorm: 112808 Take 1 Capsule(s) Oral QD 02/03/20 23 023 Inactive chlorthalidone 25 mg tablet RxNorm: 093080 Take 1 Tablet(s) Oral QAM every morning 02/03/20 23 024 Inactive acetaminophen 500 mg tablet RxNorm: 772257 1 TABLET ORALLY 3 TIMES DAILY (MAX APAP:4GM/24HR) 12/15/19 23 023 Inactive clotrimazole 1 % topical cream RxNorm: 436091 apply 1g topically to top of feet and in between toes BID 12/09/19 23 025 Inactive potassium chloride ER 20 mEq tablet,extended release RxNorm: 279881 Take 1 Tablet(s) Oral BID 12/09/19 23 024 Inactive d/c 20mEq once daily (sent from hospital) nystatin 100,000 unit/gram topical powder RxNorm: 597479 APPLY TO AFFECTED AREAS TOPICALLY 2 TIMES DAILY 11/21/19 23 023 Inactive Nystop 100,000 unit/gram topical powder RxNorm: 090440 Apply to abd folds, under breasts and L side of groin Topical BID x 14 days, then BID PRN 11/20/19 23 023 Inactive dx: yeast dermatitis Bengay Ultra Strength 4 %-30 %-10 % topical cream RxNorm: 818259 Apply 1 Gram(s) Topical QID PRN to feet and legs for neuropathic pain 11/11/19 024 Inactive clotrimazole 1 % topical cream RxNorm: 128372 Apply 1/2 Gram(s) Topical BID Apply to affected areas of groin, periarea, and abdominal topically 2 times daily 11/10/19 023 Inactive hydrocortisone 2.5 % topical cream RxNorm: 642965 Apply 1/2 Gram(s) Topical BID as needed 11/10/19 024 Inactive Levemir FlexPen 100 unit/mL (3 mL) solution subcutaneous insulin pen RxNorm: 344619 Inject 30 Unit(s) Subcutaneous BID 10/07/19 023 Inactive Humulin R U-500 (Concentrated) Insulin 500 unit/mL subcutaneous soln RxNorm: 846081 Inject 100 Unit(s) Subcutaneous TID 10/07/19 024 Inactive Ozempic 0.25 mg or 0.5 mg (2 mg/3 mL) subcutaneous pen injector RxNorm: 0882372 Inject 1/2 Milligram(s) Subcutaneous QW once a week 10/07/19 024 Inactive aripiprazole 15 mg tablet RxNorm: 236890 1/2 TAB (7.5MG) ORALLY DAILY (DX:MAJOR DEPRESSIVE DISORDER) 09/23/19 023 Inactive Accu-Chek Guide test strips RxNorm: Use 1 Test Strip QID 09/15/19 23 023 Inactive ok to substitute with any covered alternative test strip Lancets,Thin 28 gauge RxNorm: Use 1 as directed QID 09/15/19 23 023 Inactive torsemide 20 mg tablet RxNorm: 654134 Take 1 Tablet(s) Oral BID 09/09/19 23 024 Inactive d/c once daily dosing carvedilol 25 mg tablet RxNorm: 181195 Take 1 Tablet(s) Oral QD 08/25/19 024 Inactive pregabalin 150 mg capsule RxNorm: 973944 1 Capsule(s) Oral HS at bed time 08/18/19 23 023 Inactive pregabalin 100 mg capsule RxNorm: 094415 1 Capsule(s) Oral QAM every morning 08/18/19 23 023 Inactive carvedilol 25 mg tablet RxNorm: 469524 1 Tablet(s) Oral QD 07/28/19 23 023 Inactive lisinopril 20 mg tablet RxNorm: 778325 Give 1 Tablet(s) Oral QD 07/28/19 23 023 Inactive Lyrica 150 mg capsule RxNorm: 293545 Take 1 Capsule(s) Oral QHS every night at bedtime 07/19/19 023 Inactive d/c 100mg dose Diflucan 150 mg tablet RxNorm: 984333 Take 1 Tablet(s) Oral QD repeat on day 3 and 6 07/19/19 023 Inactive pregabalin 100 mg capsule RxNorm: 980177 Take 1 Capsule(s) Oral QAM every morning 07/19/19 023 Inactive gatifloxacin 0.5 % eye drops RxNorm: 806089 Instill 1 Drop(s) as directed TID Instill 1 drop in to affected eye(s) starting 1 day prior to surgery and continue until gone (do not exceed 4 weeks). 07/13/19 23 023 Inactive carvedilol 25 mg tablet RxNorm: 819382 2 Tablet(s) Oral BID 07/13/19 023 Inactive Humulin R Regular U-100 Insulin 100 unit/mL injection solution RxNorm: 927645 85 Unit(s) Injection TID 07/13/19 23 023 Inactive ketorolac 0.5 % eye drops RxNorm: 797916 Instill 1 Drop(s) as directed QID Instill 1 drop into affected eye(s) 4 times daily starting 1 day prior to surgery and continue until gone (do not exceed 4 weeks). 07/13/19 023 Inactive Diflucan 150 mg tablet RxNorm: 224749 Take 1 Tablet(s) Oral QD repeat on day 3 and 6 06/30/19 23 023 Inactive Accu-Chek Guide test strips RxNorm: Use 1 Test Strip QID Use 1 test strip to monitor blood glucose 4 times daily and as needed. Dx:E11.42. 06/23/19 23 023 Inactive ok to substitute with any covered alternative test strip dextromethorphan-gu aifenesin 10 mg-100 mg/5 mL oral liquid RxNorm: 177332 Take 10 Milliliter(s) Oral every 4 hours as needed for cough 06/19/19 023 Inactive dextromethorphan-gu aifenesin 10 mg-100 mg/5 mL oral liquid RxNorm: 399861 Take 10 Milliliter(s) Oral every 4 hours as needed for cough 06/19/19 023 Inactive Lyrica 150 mg capsule RxNorm: 553239 Take 1 Capsule(s) Oral QHS every night at bedtime 06/18/19 023 Inactive d/c 100mg dose aripiprazole 15 mg tablet RxNorm: 951767 1/2 TAB (7.5MG) ORALLY DAILY (DX:MAJOR DEPRESSIVE DISORDER) 06/05/19 23 023 Inactive pregabalin 100 mg capsule RxNorm: 995030 1 Capsule(s) Oral QAM every morning 06/02/19 23 023 Inactive Banophen 50 mg capsule RxNorm: 3460690 Take 1 Capsule(s) Oral Q6H every 6 hours as needed 05/19/19 23 No Stop Date Active Novolog Flexpen U-100 Insulin aspart 100 unit/mL (3 mL) subcutaneous RxNorm: 4089664 Inject 10 Unit(s) Subcutaneous QHS every night at bedtime with nighttime snack 04/08/20 22 022 Inactive Novolog Flexpen U-100 Insulin aspart 100 unit/mL (3 mL) subcutaneous RxNorm: 4961920 Inject 42 Unit(s) Subcutaneous TID in addition to sliding scale 04/08/20 22 022 Inactive d/c 36u albuterol sulfate HFA 90 mcg/actuation aerosol inhaler RxNorm: 8621595 Take 2 Puff(s) Inhalation Q4H every four hours as needed as needed for SOB, cough, or wheezing 04/07/20 22 030 Active Banophen 50 mg capsule RxNorm: 2687937 Take 1 Capsule(s) Oral Q6H every 6 hours as needed 04/06/20 023 Inactive diphenhydramine 50 mg tablet RxNorm: 3553506 Take 1 Tablet(s) Oral Q6H every 6 hours as needed 04/06/20 22 022 Inactive diphenhydramine 50 mg tablet RxNorm: 2090221 1 Tablet(s) Oral Q6H every 6 hours as needed 04/06/20 22 022 Inactive Abilify 15 mg tablet RxNorm: 842056 1/2 Tablet(s) Oral QD 03/10/20 023 Inactive Shingrix (PF) 50 mcg/0.5 mL intramuscular suspension, kit RxNorm: 6003123 Administer 1/2 Milliliter(s) Intramuscular QD one time shingrix step 2 ( step 1 given 11/04/21) WITH needle - Nursing please administer upon arrival and once administered post a bridge message with date of administration, meat carrier, expiration date, and lot# so we can update [facility] 02/18/20 22 022 Inactive dispense with needle Shingrix (PF) 50 mcg/0.5 mL intramuscular suspension, kit RxNorm: 4432197 Administer 1/2 Milliliter(s) Intramuscular QD one time shingrix step 2 ( step 1 given 11/04/21) WITH needle - Nursing please administer upon arrival and once administered post a bridge message with date of administration, meat carrier, expiration date, and lot# so we can update [facility] 02/18/20 22 022 Inactive dispense with needle Lyrica 100 mg capsule RxNorm: 392172 Take 1 Capsule(s) Oral QAM every morning 01/08/20 22 022 Inactive d/c 50mg dose acetaminophen 500 mg tablet RxNorm: 454555 Take 1 Tablet(s) Oral TID 01/08/20 22 022 Inactive d/c PRN order Lyrica 150 mg capsule RxNorm: 722137 Take 1 Capsule(s) Oral QHS every night at bedtime 01/08/20 22 023 Inactive d/c 100mg dose polyethylene glycol 3350 17 gram/dose oral powder RxNorm: 198602 Take 17=1 capful Gram(s) Oral QD mix with 4-8oz of liquid 01/08/20 22 025 Inactive take this in addition to BID prn order Abilify 5 mg tablet RxNorm: 316264 Take 1 Tablet(s) Oral QD take 1 tab po QD #30 refill 5 dx: MDD 12/12/19 22 022 Inactive Abilify 5 mg tablet RxNorm: 823697 Take 1 Tablet(s) Oral QD take 1 tab po QD #30 refill 5 dx: MDD 12/12/19 22 022 Inactive Novolog Flexpen U-100 Insulin aspart 100 unit/mL (3 mL) subcutaneous RxNorm: 7838863 Inject 42 Unit(s) Subcutaneous TID in addition to sliding scale 12/10/19 22 022 Inactive d/c 36u chlorthalidone 25 mg tablet RxNorm: 730191 Take 1 Tablet(s) Oral QAM every morning 12/10/19 22 023 Inactive pregabalin 50 mg capsule RxNorm: 375124 Take 1 Capsule(s) Oral QAM every morning 11/12/19 22 022 Inactive tetanus-diphtheria toxoids-Td 2 Lf unit-2 Lf unit/0.5 mL IM suspension RxNorm: 139 Take 0.5 Miscellaneous Intramuscular 11/12/19 22 022 Inactive need tdap - nursing to administer upon arrival pregabalin 50 mg capsule RxNorm: 530938 Take 1 Capsule(s) Oral QAM every morning 10/16/19 22 022 Inactive pregabalin 50 mg capsule RxNorm: 226833 Take 1 Capsule(s) Oral QAM every morning 10/16/19 22 022 Inactive pregabalin 50 mg capsule RxNorm: 082220 1 Capsule(s) Oral QAM every morning 10/15/19 22 022 Inactive Shingrix (PF) 50 mcg/0.5 mL intramuscular suspension, kit RxNorm: 5178548 Administer 1/2 Milliliter(s) Intramuscular one time Nursing please administer upon arrival and once administered post a bridge message with date of administration, meat carrier, expiration date, and lot# so we can update [facility]. 10/09/19 22 022 Inactive shingrix step 1 Shingrix (PF) 50 mcg/0.5 mL intramuscular suspension, kit RxNorm: 2674262 Administer 1/2 Milliliter(s) Intramuscular one time Nursing please administer upon arrival and once administered post a bridge message with date of administration, meat carrier, expiration date, and lot# so we [...] aspart 100 unit/mL (3 mL) subcutaneous RxNorm: 1516859 Inject 10 Unit(s) Subcutaneous QHS every night at bedtime with nighttime snack 10/08/19 22 Inactive Shingrix (PF) 50 mcg/0.5 mL intramuscular suspension, kit RxNorm: 1161787 ADMINISTER 2-DOSE SERIES PER CDC GUIDELINES 10/08/19 22 022 Active Shingrix (PF) 50 mcg/0.5 mL intramuscular suspension, kit RxNorm: 3111225 ADMINISTER 2-DOSE SERIES PER CDC GUIDELINES 10/08/19 22 022 Inactive Novolog Flexpen U-100 Insulin aspart 100 unit/mL (3 mL) subcutaneous RxNorm: 8067109 Inject 36 Unit(s) Subcutaneous TID in addition to sliding scale 10/08/19 22 022 Inactive cholecalciferol (vitamin D3) 1,250 mcg (50,000 unit) capsule RxNorm: 346099 Take 1 Capsule(s) Oral QW once a week 10/08/19 22 10/30/2 024 Inactive Novofine Autocover 30 gauge x 1/3 needle RxNorm: Use 1 Miscellaneous UD as directed Use 1 needle as directed to administer insulin 5 times a day Dx:E11.42. 10/03/19 22 Inactive ok to substitute with any covered alternative pen needle benzoyl peroxide 10 % topical cleanser RxNorm: 607094 Apply 1 Application Topical QD apply to face, wash rinse and dry once daily (may change to QOD if drying) 08/19/19 22 022 Inactive (%covered by insurance) #60ml refill 11 dx: acne benzoyl peroxide 10 % topical cleanser RxNorm: 020533 Apply 1 Application Topical QD apply to face, wash rinse and dry once daily (may change to QOD if drying) 08/19/19 22 022 Inactive (%covered by insurance) #60ml refill 11 dx: acne benzoyl peroxide 10 % topical cleanser RxNorm: 076139 Apply 1 Application Topical QD apply to face, wash rinse and dry once daily (may change to QOD if drying) 08/19/19 22 022 Inactive (%covered by insurance) #60ml refill 11 dx: acne Lyrica 50 mg capsule RxNorm: 362841 Take 1 Capsule(s) Oral QAM every morning Take 1 capsule by mouth once daily 08/19/19 22 022 Inactive benzoyl peroxide 10 % topical cleanser RxNorm: 536136 Apply 1 Application Topical QD apply to face, wash rinse and dry once daily (may change to QOD if drying) 08/19/19 22 022 Inactive (%covered by insurance) #60ml refill 11 dx: acne Lyrica 100 mg capsule RxNorm: 752969 Take 1 Capsule(s) Oral QHS every night at bedtime Take 1 capsule by mouth once daily at bedtime 08/19/19 22 022 Inactive Lyrica 100 mg capsule RxNorm: 228948 Take 1 Capsule(s) Oral QHS every night at bedtime Take 1 capsule by mouth once daily at bedtime 08/16/19 22 022 Inactive Lyrica 50 mg capsule RxNorm: 822961 Take 1 Capsule(s) Oral QAM every morning Take 1 capsule by mouth once daily 08/16/19 22 022 Inactive Levemir FlexTouch U-100 Insulin 100 unit/mL (3 mL) subcutaneous pen RxNorm: 674568 Inject 86 Unit(s) Subcutaneous BID 08/05/19 22 022 Inactive d/c 83units BID Lyrica 100 mg capsule RxNorm: 684598 Take 1 Capsule(s) Oral QHS every night at bedtime Take 1 capsule by mouth once daily at bedtime 07/14/19 22 022 Inactive Lyrica 50 mg capsule RxNorm: 345859 Take 1 Capsule(s) Oral QAM every morning Take 1 capsule by mouth once daily 07/14/19 22 022 Inactive Levemir FlexTouch U-100 Insulin 100 unit/mL (3 mL) subcutaneous pen RxNorm: 588687 Inject 83 Unit(s) Subcutaneous BID 07/08/19 22 [...] test strip hydralazine 50 mg tablet RxNorm: 103023 Take 1 Tablet(s) Oral QID 05/05/20 21 022 Inactive venlafaxine ER 225 mg tablet,extended release 24 hr RxNorm: 402138 Take 1 Tablet(s) Oral QD 05/05/20 21 Inactive venlafaxine ER 225 mg tablet,extended release 24 hr RxNorm: 881043 Take 1 Tablet(s) Oral QD 05/05/20 022 Inactive isosorbide mononitrate ER 30 mg tablet,extended release 24 hr RxNorm: 072288 Take 1 Tablet(s) Oral QD 05/05/20 024 Inactive hydralazine 50 mg tablet RxNorm: 877286 Take 1 Tablet(s) Oral QID 05/05/20 21 Inactive aspirin 81 mg tablet,delayed release RxNorm: 435204 Take 1 Tablet(s) Oral QD 03/31/20 022 Inactive Vitamin D2 1,250 mcg (50,000 unit) capsule RxNorm: 5771835 Take 1 Capsule(s) Oral QW once a week x 12 weeks 03/31/20 022 Inactive Vitamin D2 1,250 mcg (50,000 unit) capsule RxNorm: 8794726 Take 1 Capsule(s) Oral QW once a week 03/31/20 021 Inactive Zetia 10 mg tablet RxNorm: 795721 Take 1 Tablet(s) Oral QD 03/31/20 21 024 Inactive Zetia 10 mg tablet RxNorm: 057674 Take 1 Tablet(s) Oral QD 03/31/20 21 021 Inactive hydralazine 25 mg tablet RxNorm: 425608 Take 1 Tablet(s) Oral QID 03/31/20 021 Inactive hydralazine 25 mg tablet RxNorm: 611127 Take 1 Tablet(s) Oral QID 03/31/20 021 Inactive hydralazine 10 mg tablet RxNorm: 181571 Take 1 Tablet(s) Oral QID 03/03/20 021 Inactive cephalexin 500 mg tablet RxNorm: 842119 Take 1 Tablet(s) Oral QID 02/27/20 021 Inactive cephalexin 500 mg tablet RxNorm: 436789 Take 1 Tablet(s) Oral QID 02/27/20 021 Inactive lisinopril 40 mg tablet RxNorm: 142016 Take 1 Tablet(s) Oral QD 02/11/20 023 Inactive Eliquis 5 mg tablet RxNorm: 5667508 Take 1 Tablet(s) Oral BID 01/05/20 025 Inactive Eliquis 5 mg tablet RxNorm: 3447160 Take 2 Tablet(s) Oral QD 01/01/20 021 Inactive Lyrica 50 mg capsule RxNorm: 872064 Take 1 Capsule(s) Oral QAM every morning 12/24/19 021 Inactive Lyrica 100 mg capsule RxNorm: 510035 Take 1 Capsule(s) Oral QHS every night at bedtime 12/24/19 021 Inactive clotrimazole 1 % topical cream RxNorm: 288678 Apply to right foot and toes Topical BID 12/04/19 21 023 Inactive metoprolol succinate ER 200 mg tablet,extended release 24 hr RxNorm: 540222 Take 1 Tablet(s) Oral QD 12/04/19 023 Inactive ciprofloxacin 500 mg tablet RxNorm: 117699 Take 1 Tablet(s) Oral QD 11/30/19 21 021 Inactive DX ofloxacin otic drops Accu-Chek Guide test strips RxNorm: USE 1 TO CHECK GLUCOSE 4 TIMES DAILY AND NEEDED 11/15/19 21 023 Inactive Blood Glucose Test strips RxNorm: Use 1 Test Strip QID at PRN 11/05/19 21 023 Inactive E11.42 lisinopril 30 mg tablet RxNorm: 511929 Take 1 Tablet(s) Oral QD 10/30/19 21 021 Inactive lisinopril 20 mg tablet RxNorm: 743111 Take 1 Tablet(s) Oral QD 10/23/19 21 021 Inactive lisinopril 20 mg tablet RxNorm: 845298 Take 1 Tablet(s) Oral QD 10/23/19 21 021 Inactive lisinopril 10 mg tablet RxNorm: 732501 Take 1 Tablet(s) Oral QD 10/02/19 21 021 Inactive icosapent ethyl 1 gram capsule RxNorm: 6529725 Take 2 Capsule(s) (2 gm) Oral BID with meals 09/12/19 21 024 Inactive Okay to dispense one 2gm tab if you have that available. icosapent ethyl 1 gram capsule RxNorm: 4938710 Take 2 Capsule(s) Oral BID 09/12/19 21 021 Inactive Okay to dispense one 2gm tab if you have that available. amlodipine 10 mg tablet RxNorm: 764621 Take 1 Tablet(s) Oral QD 09/04/19 21 021 Inactive aspirin 81 mg tablet,delayed release RxNorm: 693662 Take 1 Tablet(s) Oral QD 09/04/19 21 021 Inactive Levemir FlexTouch U-100 Insulin 100 unit/mL (3 mL) subcutaneous pen RxNorm: 737965 Inject 150 Unit(s) Subcutaneous BID 09/04/19 21 022 Inactive venlafaxine ER 150 mg tablet,extended release 24 hr RxNorm: 932844 Take 1 Tablet(s) Oral QD 09/04/19 21 021 Inactive clotrimazole-betame thasone 1 %-0.05 % topical cream RxNorm: 382676 Apply to rash on red area on left abdomen/chest Topical BID 08/10/19 21 021 Inactive amlodipine 5 mg tablet RxNorm: 385830 Take 1 Tablet(s) Oral QD 07/31/19 21 021 Inactive cephalexin 500 mg tablet RxNorm: 326347 Take 1 Tablet(s) Oral BID BID - Twice Daily 07/31/19 21 021 Inactive Start 08/01/20 pantoprazole 40 mg tablet,delayed release RxNorm: 895692 Take 1 Tablet(s) Oral QAM every morning 07/08/19 025 Inactive clopidogrel 75 mg tablet RxNorm: 708613 Take 1 Tablet(s) Oral QD 07/08/19 021 Inactive Blood Glucose Test strips RxNorm: Use 1 Test Strip QID at PRN 07/08/19 21 Inactive E11.42 senna 8.6 mg tablet RxNorm: 196858 Take 1 Tablet(s) Oral QD 07/08/19 025 Inactive Novolog Flexpen U-100 Insulin aspart 100 unit/mL (3 mL) subcutaneous RxNorm: 2885235 Administer per sliding scale Milliliter(s) Subcutaneous TID 151-200: 10 u; 201-250: 20 u; 251-300: 30 u; 301-350: 40 u; 351-400: 50 u. 07/08/19 022 Inactive lisinopril 5 mg tablet RxNorm: 271724 Take 1 Tablet(s) Oral QD 07/08/19 021 Inactive Novolog Flexpen U-100 Insulin aspart 100 unit/mL (3 mL) subcutaneous RxNorm: 8604202 Inject 85 Unit(s) Subcutaneous TID 07/08/19 022 Inactive pravastatin 80 mg tablet RxNorm: 767446 Take 1 Tablet(s) Oral QHS every night at bedtime 07/08/19 023 Inactive clotrimazole 1 % topical cream RxNorm: 191035 Apply to bilateral groin areas Topical BID 07/08/19 022 Inactive metoprolol succinate ER 200 mg tablet,extended release 24 hr RxNorm: 813786 Take 1 Tablet(s) Oral QD 07/08/19 021 Inactive Vitamin D3 25 mcg (1,000 unit) tablet RxNorm: 929274 Take 1 Tablet(s) Oral QD 07/08/19 021 Inactive isosorbide dinitrate 30 mg tablet RxNorm: 779576 Take 1 Tablet(s) Oral QD 07/08/19 21 021 Inactive carbamazepine 200 mg tablet RxNorm: 697350 Take 1 Tablet(s) Oral BID 07/08/19 21 025 Inactive Levemir FlexTouch U-100 Insulin 100 unit/mL (3 mL) subcutaneous pen RxNorm: 831629 Inject 140 Unit(s) Subcutaneous BID 07/08/19 21 021 Inactive torsemide 20 mg tablet RxNorm: 362268 Take 1 Tablet(s) Oral QD 07/08/19 21 023 Inactive venlafaxine 75 mg tablet RxNorm: 980462 Take 1 Tablet(s) Oral QD 07/08/19 021 Inactive acetaminophen 500 mg tablet RxNorm: 043863 Take 1 Tablet(s) Oral TID as needed for headache 06/18/19 21 021 Inactive acetaminophen 500 mg tablet RxNorm: 927568 Take 1 Tablet(s) Oral TID as needed for headache 06/18/19 021 Inactive Lyrica 100 mg capsule RxNorm: 490444 Take 1 Capsule(s) Oral QHS every night at bedtime 06/11/19 21 021 Inactive Lyrica 50 mg capsule RxNorm: 785780 Take 1 Capsule(s) Oral QAM every morning 06/10/19 21 021 Inactive hydrocortisone 2.5 % topical cream RxNorm: 573323 Apply to bilateral groin creases Topical BID 05/15/20 20 021 Inactive clotrimazole 1 % topical cream RxNorm: 396530 Apply to bilateral groin areas Topical BID 05/15/20 20 021 Inactive Lyrica 50 mg capsule RxNorm: 633604 Take 1 Capsule(s) Oral QAM every morning 05/14/20 20 020 Inactive Lyrica 100 mg capsule RxNorm: 610991 Take 1 Capsule(s) Oral QHS every night [...] Inactive Nystop 100,000 unit/gram topical powder RxNorm: 725912 Apply to abd folds, under breasts and L side of groin Topical BID x 14 days, then BID PRN 04/08/20 20 Inactive dx: yeast dermatitis Lyrica 100 mg capsule RxNorm: 126136 Take 1 Capsule(s) Oral QHS every night at bedtime 03/13/20 20 Inactive Lyrica 50 mg capsule RxNorm: 144491 Take 1 Capsule(s) Oral QAM every morning 03/13/20 20 Inactive ketoconazole 2 % shampoo RxNorm: 064397 Apply Topical two times a week with showers 03/11/20 20 024 Inactive cholecalciferol (vitamin D3) 50 mcg (2,000 unit) tablet RxNorm: 558506 Take 1 Tablet(s) Oral QD 03/11/20 20 021 Inactive Zetia 10 mg tablet RxNorm: 525029 Take 1 Tablet(s) Oral QD 03/07/20 20 021 Inactive Zetia 10 mg tablet RxNorm: 528252 Take 1 Tablet(s) Oral QD 03/07/20 20 020 Inactive Lyrica 50 mg capsule RxNorm: 103995 Take 1 Capsule(s) Oral QAM every morning 02/15/20 20 Inactive Lyrica 100 mg capsule RxNorm: 252907 Take 1 Capsule(s) Oral QHS every night at bedtime 02/15/20 20 020 Inactive Lyrica 100 mg capsule RxNorm: 317180 Take 1 Capsule(s) Oral QHS every night at bedtime 02/15/20 20 020 Inactive Lyrica 50 mg capsule RxNorm: 898076 Take 1 Capsule(s) Oral QAM every morning 02/15/20 020 Inactive loperamide 2 mg capsule RxNorm: 121443 Take 1 Capsule(s) Oral QID as needed 09/06/19 025 Inactive venlafaxine ER 75 mg capsule,extended release 24 hr RxNorm: 696377 Take 3 Capsule(s) Oral QD 06/12/19 023 Inactive polyethylene glycol 3350 17 gram/dose oral powder RxNorm: 874851 Take 17=1 capful Gram(s) Oral BID as needed mix with 4-8oz of liquid 06/12/19 024 Inactive icosapent ethyl 1 gram capsule RxNorm: 5263178 Take 2 Capsule(s) (2 gm) Oral BID with meals 10/07/19 23 023 Inactive Okay to dispense one 2gm tab if you have that available. Levemir FlexTouch U-100 Insulin 100 unit/mL (3 mL) subcutaneous pen RxNorm: 912520 Inject 80 Unit(s) Subcutaneous BID 07/14/19 23 023 Inactive metoprolol succinate ER 200 mg tablet,extended release 24 hr RxNorm: 527105 Take 1 Tablet(s) Oral QD 08/12/19 23 025 Inactive hydralazine 50 mg tablet RxNorm: 665251 Take 1 Tablet(s) Oral QID 08/12/19 025 Inactive Soft Touch Lancets RxNorm: miscellaneous 03/04/20 24 025 Inactive Novolog Flexpen U-100 Insulin aspart 100 unit/mL (3 mL) subcutaneous RxNorm: 7346249 Insert 30 Unit(s) Subcutaneous TID with meals [...] Procedures Procedure Codes Date Toenail Debridement CPT-4: 08666 08/08/2024 SYS BP LESS 140 CPT-4: G8752 08/08/2024 CUI BP LESS 90 CPT-4: G8754 08/08/2024 Vital Signs Date Vital 08/08/2024 Blood Pressure 1: 130/86 Code: 8480-6 BMI: NaN Code: 42259-9 Heart Rate 1: 87 bpm Code: 8867-4 [...] Encounter Performer Location Location Address Codes Date ([address]) Home Visit - Est Pt, moderate Diagnosis: Type 2 diabetes mellitus with diabetic polyneuropathy, with long-term current use of insulin[ICD10: E11.42] Diagnosis: Constipation by delayed colonic transit[ICD10: K59.01] Diagnosis: Mixed incontinence[SNOMED : 26273943] Diagnosis: Body mass index [BMI] 60.0-69.9, adult[SNOMED: 508975168] Harrison Munson [facility] [address] [place] [id number] CPT-4: 89848 08/08/2024 Plan of Care Planned Activity Notes Codes Status Date Referral: [facility] Radiology/Imaging WPtel: [address] [facility] Referral Appointment Scheduled 10/20/2024 Patient Education: Patient Medication Summary Completed 08/08/2024 Patient Education: Influenza Complet ed 08/08/2024 Appointment: Brian Munson WPtel: [address] [place], [place] [phone] F/U 07/11/2024 Referral: [facility]/Endocrinology WPtel: [address] [facility] 3 [id number] Referral No Records Received 07/10/2024 Appointment: Brian Munson WPtel: [address] [place], [place] [phone] [place] AWV 02/08/2024 Appointment: Brian Munson WPtel: [address] [place], [place] [phone] [place] F/U 01/11/2024 Appointment: Sandra Clark WPtel: [address] Telehealth Psych Follow Up 12/09 Appointment: Tapan Shriley WPtel: [address] [facility] [address] [id number] [facility] 10/26/2022 Referral: [facility] WPtel: [address] , [address] [id number] Referral Records Received 09/21/2022 Appointment: Tapan Shirley WPtel: [address] [facility] [address] [id number] [place] F/U 08/11/2022 Appointment: Tapan Shirley WPtel: [address] [facility] [address] [id number] [place] F/U 07/14/2022 Appointment: Tapan Shirley WPtel: [address] [facility] [address] [id number] [place] F/U 02/10/2022 Referral: [facility] WPtel: [address] [facility] [address] [id number] Referral Completed 05/28/2021 Referral: General Cardiology Referral [...] Sister Jyotsna involved in his care cell# [phone] Guardian: Giulia (tapan met in person 09/01/21), [...]
--- OUTSIDE RECORDS SUMMARY | 2024-10-19 19:17 | XMS_ITS | CCD ---
Author Name Cecilio Durham Address [address] [place] [address] Phone Organization [facility] Phone Care Team Providers Care Online Marketing Coordinator Name Role Phone Harrison Durham Primary Care Provider Leona vailable Unavailable Chronic Care Management Unavaila ble Summary Purpose DataExchange Insurance Providers Payer name Policy type / Coverage type Covered alliance party ID Effective Begin Date Effective End Date [place] Part B [id number] Unknown Unknown [place] Medicare Part B [id number] Unknown Unknown Family history Sister Brittany Suggs Diagnosis Age At Onset No Family Disease Entered N/A Runs in the family Diagnosis Age At Onset No Known Diseases N/A Sister Blanka Mcduffie Diagnosis Age At Onset No Family Disease Entered N/A Social History Social History Element Codes Description Effec tive Dates Tobacco history SNOMED CT: 766349276 Never smoker 01/16 Sexually Active? Unknown No [...] Long-Term 09/03/[address]: 748405145 No Alcohol Consum ption 09/02/2020 Allergies, Adverse Reactions, Alerts Substance Reaction Codes Entered Date Inactivated Date Status * NO KNOWN FOOD ALLERGIES Unknown 07/13/2023 No Inactive Date Active LISINOPRIL RxNorm: 46002 02/12/2020 No Inactive Da te Active Metformin [...] 250.80 06/13/2024 Active Hypertensive heart disease w [facility] heart failure ICD-10: I11.9 ICD-9: 402.90 06/13/2024 [...] 09/07/2023 Resolved Coronary artery disease invo lving [place] coronary artery of [place] heart, angina presence unspecified ICD-10: I25.10 ICD-9: [...] 200 mg tablet,extended release 24 hr RxNorm: 698383 Take 1 Tablet(s) Oral QD 06/19/19 25 No Stop Date Active pantoprazole 40 mg tablet,delayed release RxNorm: 736140 Take 1 Tablet(s) Oral QAM every morning 06/19/19 25 No Stop Date Active hydralazine 50 mg tablet RxNorm: 180522 Take 1 Tablet(s) Oral QID 06/19/19 25 No Stop Date Active carbamazepine 200 mg tablet RxNorm: 008388 Take 1 Tablet(s) Oral BID 06/19/19 25 No Stop Date Active amlodipine 10 mg tablet RxNorm: 831111 Take 1 Tablet(s) Oral QD 06/19/19 25 No Stop Date Active Eliquis 5 mg tablet RxNorm: 1360847 Take 1 Tablet(s) Oral BID 06/19/19 25 No Stop Date Active pen needle, diabetic 30 gauge x 3/16 RxNorm: Use 1 6 times per day w/insulin 06/14/19 25 026 Active pen needle, diabetic 30 gauge x 3/16 RxNorm: Use 1 needle 6 times per day w/insulin 06/14/19 25 025 Inactive nystatin 100,000 unit/gram topical powder RxNorm: 990292 Apply 1 Application Topical BID as needed abdominal/breast /groin folds 05/24/19 25 026 Active pregabalin 100 mg capsule RxNorm: 860721 Take 1 Capsule(s) Oral QAM every morning 05/22/19 25 025 Inactive nystatin 100,000 unit/gram topical powder RxNorm: 990899 Apply 1 Application Topical BID as needed abdominal/breast /groin folds 04/11/20 24 024 Inactive chlorthalidone 25 mg tablet RxNorm: 335476 Take 1 Tablet(s) Oral QAM every morning 04/06/20 No Stop Date Active pregabalin 150 mg capsule RxNorm: 238861 Take 1 Capsule(s) Oral QHS every night at bedtime 03/31/20 24 024 Inactive Vascepa 1 gram capsule RxNorm: 4662254 Take 2 Capsule(s) Oral BID 03/30/20 24 025 Active rosuvastatin 40 mg tablet RxNorm: 906869 1 TAB ORALLY EVERY EVENING (DX:CORONARY ARTERY DISEASE) 03/28/20 No Stop Date Active venlafaxine ER 75 mg capsule,extended release 24 hr RxNorm: 771164 3 CAPS (225MG) ORALLY DAILY (DX: MOOD DISORDER) 03/28/20 No Stop Date Active pregabalin 100 mg capsule RxNorm: 300538 Take 1 Capsule(s) Oral QAM every morning 03/20/20 24 024 Inactive cholecalciferol (vitamin D3) 1,250 mcg (50,000 unit) capsule RxNorm: 092720 Take 1 Capsule(s) Oral QW once a week 03/15/20 24 025 Active Lancets,Thin 28 gauge RxNorm: [...] Insulin 100 unit/mL (3 mL) subcutaneous RxNorm: 6853813 Inject 40 Unit(s) Subcutaneous BID 03/07/20 025 Inactive Please dispense one month supply. Humulin R U-500 (Concentrated) Insulin 500 unit/mL subcutaneous soln RxNorm: 640677 Inject 100 Unit(s) Subcutaneous AC before meals [...] PRN) to be use with new [place] meter 03/04/20 024 Inactive ok to substitute with any covered alternative test strip FreeStyle Chema 2 Sensor kit RxNorm: Use UD as directed 03/02/20 025 Inactive FreeStyle Chema 2 Sensor kit RxNorm: Use UD as directed 03/02/20 24 Inactive Pen Needle 30 gauge x 5/16 RxNorm: Pen(s) Use 1 needle as directed TID 03/02/20 24 024 Inactive nystatin 100,000 unit/gram topical powder RxNorm: 879230 Apply 1 Application Topical BID as needed abdominal/breast /groin folds 03/02/20 24 Inactive Accu-Chek Guide test strips [...] (Concentrated) Insulin 500 unit/mL subcutaneous soln RxNorm: 014711 Inject 100 Unit(s) Subcutaneous TID 02/17/20 24 024 Inactive Humulin R U-500 (Concentrated) Insulin 500 unit/mL subcutaneous soln RxNorm: 095999 Inject 100 Unit(s) Subcutaneous TID 02/10/20 24 024 Inactive Basaglar KwikPen U-100 Insulin 100 unit/mL (3 mL) subcutaneous RxNorm: 7367047 Inject 30 Unit(s) Subcutaneous BID 02/10/20 24 024 Inactive Please dispense one month supply. pregabalin 100 mg capsule RxNorm: 985182 Take 1 Capsule(s) Oral QAM every morning 02/07/20 24 024 Inactive isosorbide mononitrate ER 60 mg tablet,extended release 24 hr RxNorm: 979646 Take 1 Tablet(s) Oral QD 02/01/20 24 025 Active aripiprazole 15 mg tablet RxNorm: 657531 Take 1/2 Tablet(s) Oral QD 02/01/20 24 025 Active torsemide 20 mg tablet RxNorm: 479143 1 TAB ORALLY DAILY (DX: EDEMA) 01/27/20 24 No Stop Date Active potassium chloride ER 20 mEq tablet,extended release(part/cryst) RxNorm: 0400396 2 TABS (40MEQ) ORALLY TWICE DAILY (DX: HYPOKALEMIA) 01/27/20 24 Inactive cephalexin 500 mg capsule RxNorm: 536468 Take 1 Capsule(s) Oral QID 12/17/19 24 024 Inactive cephalexin 500 mg capsule RxNorm: 586495 Take 1 Capsule(s) Oral QID 12/17/19 24 024 Inactive acetaminophen 500 mg tablet RxNorm: 658815 (MAX APAP:4GM/24HR) Take 1 Tablet(s) Oral TID as needed for pain 12/10/19 24 Inactive torsemide 20 mg tablet RxNorm: 237943 Take 1 Tablet(s) Oral QD 10/26/19 24 025 Inactive potassium chloride ER 20 mEq tablet,extended release RxNorm: 849500 Take 2 Tablet(s) Oral BID 10/26/19 24 025 Inactive torsemide 20 mg tablet RxNorm: 589147 Take 1 Tablet(s) Oral QD 10/26/19 24 024 Inactive potassium chloride ER 20 mEq tablet,extended release RxNorm: 105399 Take 2 Tablet(s) Oral BID 10/26/19 24 024 Inactive Artificial Tears (PF) 0.1 %-0.3 % drops in a dropperette RxNorm: 195143 Apply 1-2 Drop(s) Both eyes BID as needed 09/28/19 24 025 Inactive erythromycin 5 mg/gram (0.5 %) eye ointment RxNorm: 020406 Apply 1 Application Both eyes QHS every night at bedtime Instill ~1 cm ribbon into affected eye 09/28/19 24 024 Inactive Artificial Tears (PF) 0.1 %-0.3 % drops in a dropperette RxNorm: 232322 Apply 1-2 Drop(s) Both eyes BID as needed 09/28/19 24 024 Inactive erythromycin 5 mg/gram (0.5 %) eye ointment RxNorm: 361387 Apply 1 Application Both eyes QHS every night at bedtime Instill ~1 cm ribbon into affected eye 09/28/19 024 Inactive acetaminophen 500 mg tablet RxNorm: 813177 (MAX APAP:4GM/24HR) Take 1 Tablet(s) Oral TID as needed for pain 09/24/19 024 Inactive carvedilol 25 mg tablet RxNorm: 297554 Take 1 Tablet(s) Oral QD 09/08/19 24 No Stop Date Active pregabalin 100 mg capsule RxNorm: 401454 Take 1 Capsule(s) Oral QAM every morning 09/07/19 24 024 Inactive ezetimibe 10 mg tablet RxNorm: 082520 Take 1 Tablet(s) Oral QD 07/13/19 24 025 Inactive bisacodyl 10 mg rectal suppository RxNorm: 847513 Insert 1 Suppository Rectal QD as needed 07/13/19 24 No Stop Date Active polyethylene glycol 3350 17 gram/dose oral powder RxNorm: 998350 Take 17 Gram(s) Oral BID as needed mix in 4-8ox water 07/13/19 24 025 Inactive ketoconazole 2 % shampoo RxNorm: 760837 Apply 1 Application Topical UD as directed 07/13/19 No Stop Date Active Ozempic 1 mg/dose (4 mg/3 mL) subcutaneous pen injector RxNorm: 7570233 Inject 1 Milligram(s) Subcutaneous QW once a week 07/13/19 24 No Stop Date Active Guaifenesin AC 10 mg-100 mg/5 mL oral liquid RxNorm: 730770 Take 10 Milliliter(s) Oral Q4H every four hours as needed 07/13/19 24 No Stop Date Active ammonium lactate 12 % topical cream RxNorm: 674052 Apply 1 Application Topical BID 07/13/19 24 025 Inactive hydrocortisone 2.5 % topical cream RxNorm: 310305 Apply 1 Application Topical BID as needed 07/13/19 24 No Stop Date Active rosuvastatin 20 mg sprinkle capsule RxNorm: 9945940 Take 1 Capsule(s) Oral QD 07/13/19 24 025 Inactive rosuvastatin 40 mg tablet RxNorm: 896870 Take 1 Tablet(s) Oral QPM every evening 07/13/19 24 024 Inactive aripiprazole 15 mg tablet RxNorm: 622988 Take 1/2 Tablet(s) Oral QD 07/13/19 24 024 Inactive isosorbide mononitrate ER 60 mg tablet,extended release 24 hr RxNorm: 196492 Take 1 Tablet(s) Oral QD 07/13/19 24 024 Inactive Vascepa 1 gram capsule RxNorm: 2115939 Take 2 Capsule(s) Oral BID 07/13/19 24 024 Inactive venlafaxine ER 75 mg capsule,extended release 24 hr RxNorm: 866591 Take 3 Capsule(s) Oral QD 07/13/19 24 024 Inactive Basaglar KwikPen U-100 Insulin 100 unit/mL (3 mL) subcutaneous RxNorm: 6530711 Inject 30U SubQ twice daily 07/07/19 24 024 Inactive Please dispense one month supply. Basaglar KwikPen U-100 Insulin 100 unit/mL (3 mL) subcutaneous RxNorm: 9017016 Inject 30U SubQ twice daily 07/07/19 24 024 Inactive Please dispense one month supply. pregabalin 150 mg capsule RxNorm: 705564 Take 1 Capsule(s) Oral QHS every night at bedtime 07/05/19 24 024 Inactive pregabalin 150 mg capsule RxNorm: 075933 Take 1 Capsule(s) Oral QHS every night at bedtime 07/05/19 24 024 Inactive polyethylene glycol 3350 17 gram/dose oral powder RxNorm: 809362 Take 1 Packet Oral QD as needed (1 packet = 17g) mix with 4-8oz of liquid 06/15/19 24 024 Inactive bisacodyl 10 mg rectal suppository RxNorm: 595513 Insert one suppository per rectum once daily as needed for constipation 06/15/19 24 024 Inactive bisacodyl 10 mg rectal suppository RxNorm: 621797 Insert one suppository per rectum once daily as needed for constipation 06/15/19 24 024 Inactive pregabalin 100 mg capsule RxNorm: 733401 Take 1 Capsule(s) Oral QAM every morning 04/27/20 024 Inactive Levemir FlexPen 100 unit/mL (3 mL) solution subcutaneous insulin pen RxNorm: 830729 Inject 30 Unit(s) Subcutaneous BID 04/27/20 23 024 Inactive rosuvastatin 40 mg tablet RxNorm: 636958 Take 1 Tablet(s) Oral QPM every evening 04/16/20 024 Inactive D/C rosuvastatin 20mg venlafaxine ER 75 mg capsule,extended release 24 hr RxNorm: 123117 Take 3 Capsule(s) Oral QD 04/14/20 023 Inactive pregabalin 100 mg capsule RxNorm: 773128 Take 1 Capsule(s) Oral QAM every morning [...] strip clotrimazole 1 % topical cream RxNorm: 584335 Take apply topically to abdominal folds twice daily for 14 days 03/12/20 024 Inactive Ozempic 1 mg/dose (4 mg/3 mL) subcutaneous pen injector RxNorm: 6546436 Inject 1 Milligram(s) Subcutaneous QW once a week 03/11/20 023 Inactive rosuvastatin 20 mg tablet RxNorm: 970819 Take 1 Tablet(s) Oral QD 02/26/20 023 Inactive d/c pravastatin 80mg Ozempic 1 mg/dose (4 mg/3 mL) subcutaneous pen injector RxNorm: 4576201 Inject 1 Milligram(s) Subcutaneous QW once a week 02/20/20 23 023 Inactive pregabalin 150 mg capsule RxNorm: 927628 Take 1 Capsule(s) Oral HS at bed time 02/19/20 23 023 Inactive pregabalin 100 mg capsule RxNorm: 925058 Take 1 Capsule(s) Oral QAM every morning 02/18/20 23 023 Inactive venlafaxine ER 75 mg capsule,extended release 24 hr RxNorm: 791119 Take 3 Capsule(s) Oral QD 02/04/20 23 023 Inactive FreeStyle Chema 2 Sensor kit RxNorm: use as directed 02/04/20 23 023 Inactive FreeStyle Chema 2 Sensor kit RxNorm: use as directed 02/04/20 23 024 Inactive fluconazole 150 mg tablet RxNorm: 942349 Take 1 Tablet(s) Oral on day 3 and on day 6 02/03/20 024 Inactive venlafaxine ER 150 mg capsule,extended release 24 hr RxNorm: 921001 Take 1 Capsule(s) Oral QD 02/03/20 023 Inactive chlorthalidone 25 mg tablet RxNorm: 150984 Take 1 Tablet(s) Oral QAM every morning 02/03/20 23 024 Inactive acetaminophen 500 mg tablet RxNorm: 516326 1 TABLET ORALLY 3 TIMES DAILY (MAX APAP:4GM/24HR) 12/15/19 23 023 Inactive clotrimazole 1 % topical cream RxNorm: 691900 apply 1g topically to top of feet and in between toes BID 12/09/19 23 025 Inactive potassium chloride ER 20 mEq tablet,extended release RxNorm: 460721 Take 1 Tablet(s) Oral BID 12/09/19 23 024 Inactive d/c 20mEq once daily (sent from hospital) nystatin 100,000 unit/gram topical powder RxNorm: 865473 APPLY TO AFFECTED AREAS TOPICALLY 2 TIMES DAILY 11/21/19 23 023 Inactive Nystop 100,000 unit/gram topical powder RxNorm: 240978 Apply to abd folds, under breasts and L side of groin Topical BID x 14 days, then BID PRN 11/20/19 23 023 Inactive dx: yeast dermatitis [place] Ultra Strength 4 %-30 %-10 % topical cream RxNorm: 894205 Apply 1 Gram(s) Topical QID PRN to feet and legs for neuropathic pain 11/11/19 024 Inactive clotrimazole 1 % topical cream RxNorm: 486282 Apply 1/2 Gram(s) Topical BID Apply to affected areas of groin, periarea, and abdominal topically 2 times daily 11/10/19 023 Inactive hydrocortisone 2.5 % topical cream RxNorm: 452828 Apply 1/2 Gram(s) Topical BID as needed 11/10/19 024 Inactive Levemir FlexPen 100 unit/mL (3 mL) solution subcutaneous insulin pen RxNorm: 291007 Inject 30 Unit(s) Subcutaneous BID 10/07/19 023 Inactive Humulin R U-500 (Concentrated) Insulin 500 unit/mL subcutaneous soln RxNorm: 314663 Inject 100 Unit(s) Subcutaneous TID 10/07/19 024 Inactive Ozempic 0.25 mg or 0.5 mg (2 mg/3 mL) subcutaneous pen injector RxNorm: 3800973 Inject 1/2 Milligram(s) Subcutaneous QW once a week 10/07/19 024 Inactive aripiprazole 15 mg tablet RxNorm: 649981 1/2 TAB (7.5MG) ORALLY DAILY (DX:MAJOR DEPRESSIVE DISORDER) 09/23/19 23 023 Inactive Accu-Chek Guide test strips RxNorm: Use 1 Test Strip QID 09/15/19 23 023 Inactive ok to substitute with any covered alternative test strip Lancets,Thin 28 gauge RxNorm: Use 1 as directed QID 09/15/19 23 023 Inactive torsemide 20 mg tablet RxNorm: 156015 Take 1 Tablet(s) Oral BID 09/09/19 23 024 Inactive d/c once daily dosing carvedilol 25 mg tablet RxNorm: 687014 Take 1 Tablet(s) Oral QD 08/25/19 23 024 Inactive pregabalin 150 mg capsule RxNorm: 208073 1 Capsule(s) Oral HS at bed time 08/18/19 023 Inactive pregabalin 100 mg capsule RxNorm: 669091 1 Capsule(s) Oral QAM every morning 08/18/19 23 023 Inactive carvedilol 25 mg tablet RxNorm: 310559 1 Tablet(s) Oral QD 07/28/19 23 023 Inactive lisinopril 20 mg tablet RxNorm: 045884 Give 1 Tablet(s) Oral QD 07/28/19 23 023 Inactive Lyrica 150 mg capsule RxNorm: 021918 Take 1 Capsule(s) Oral QHS every night at bedtime 07/19/19 023 Inactive d/c 100mg dose Diflucan 150 mg tablet RxNorm: 350312 Take 1 Tablet(s) Oral QD repeat on day 3 and 6 07/19/19 023 Inactive pregabalin 100 mg capsule RxNorm: 973556 Take 1 Capsule(s) Oral QAM every morning 07/19/19 023 Inactive gatifloxacin 0.5 % eye drops RxNorm: 592552 Instill 1 Drop(s) as directed TID Instill 1 drop in to affected eye(s) starting 1 day prior to surgery and continue until gone (do not exceed 4 weeks). 07/13/19 023 Inactive carvedilol 25 mg tablet RxNorm: 966172 2 Tablet(s) Oral BID 07/13/19 023 Inactive Humulin R Regular U-100 Insulin 100 unit/mL injection solution RxNorm: 960602 85 Unit(s) Injection TID 07/13/19 23 023 Inactive ketorolac 0.5 % eye drops RxNorm: 105778 Instill 1 Drop(s) as directed QID Instill 1 drop into affected eye(s) 4 times daily starting 1 day prior to surgery and continue until gone (do not exceed 4 weeks). 07/13/19 23 023 Inactive Diflucan 150 mg tablet RxNorm: 740939 Take 1 Tablet(s) Oral QD repeat on day 3 and 6 06/30/19 23 023 Inactive Accu-Chek Guide test strips RxNorm: Use 1 Test Strip QID Use 1 test strip to monitor blood glucose 4 times daily and as needed. Dx:E11.42. 06/23/19 023 Inactive ok to substitute with any covered alternative test strip dextromethorphan-gu aifenesin 10 mg-100 mg/5 mL oral liquid RxNorm: 715331 Take 10 Milliliter(s) Oral every 4 hours as needed for cough 06/19/19 023 Inactive dextromethorphan-gu aifenesin 10 mg-100 mg/5 mL oral liquid RxNorm: 773165 Take 10 Milliliter(s) Oral every 4 hours as needed for cough 06/19/19 023 Inactive Lyrica 150 mg capsule RxNorm: 111319 Take 1 Capsule(s) Oral QHS every night at bedtime 06/18/19 023 Inactive d/c 100mg dose aripiprazole 15 mg tablet RxNorm: 934936 1/2 TAB (7.5MG) ORALLY DAILY (DX:MAJOR DEPRESSIVE DISORDER) 06/05/19 23 023 Inactive pregabalin 100 mg capsule RxNorm: 959361 1 Capsule(s) Oral QAM every morning 06/02/19 23 023 Inactive Banophen 50 mg capsule RxNorm: 7124640 Take 1 Capsule(s) Oral Q6H every 6 hours as needed 05/19/19 23 No Stop Date Active Novolog Flexpen U-100 Insulin aspart 100 unit/mL (3 mL) subcutaneous RxNorm: 2438885 Inject 10 Unit(s) Subcutaneous QHS every night at bedtime with nighttime snack 04/08/20 22 022 Inactive Novolog Flexpen U-100 Insulin aspart 100 unit/mL (3 mL) subcutaneous RxNorm: 5688243 Inject 42 Unit(s) Subcutaneous TID in addition to sliding scale 04/08/20 22 022 Inactive d/c 36u albuterol sulfate HFA 90 mcg/actuation aerosol inhaler RxNorm: 6234241 Take 2 Puff(s) Inhalation Q4H every four hours as needed as needed for SOB, cough, or wheezing 04/07/20 22 030 Active Banophen 50 mg capsule RxNorm: 0190680 Take 1 Capsule(s) Oral Q6H every 6 hours as needed 04/06/20 023 Inactive diphenhydramine 50 mg tablet RxNorm: 4844215 Take 1 Tablet(s) Oral Q6H every 6 hours as needed 04/06/20 22 022 Inactive diphenhydramine 50 mg tablet RxNorm: 6645555 1 Tablet(s) Oral Q6H every 6 hours as needed 04/06/20 22 022 Inactive Abilify 15 mg tablet RxNorm: 966809 1/2 Tablet(s) Oral QD 03/10/20 023 Inactive Shingrix (PF) 50 mcg/0.5 mL intramuscular suspension, kit RxNorm: 2171119 Administer 1/2 Milliliter(s) Intramuscular QD one time shingrix step 2 ( step 1 given 11/04/21) WITH needle - Nursing please administer upon arrival and once administered post a bridge message with date of administration, director international, expiration date, and lot# so we can update [facility] 02/18/20 22 022 Inactive dispense with needle Shingrix (PF) 50 mcg/0.5 mL intramuscular suspension, kit RxNorm: 5548140 Administer 1/2 Milliliter(s) Intramuscular QD one time shingrix step 2 ( step 1 given 11/04/21) WITH needle - Nursing please administer upon arrival and once administered post a bridge message with date of administration, director international, expiration date, and lot# so we can update [facility] 02/18/20 22 022 Inactive dispense with needle polyethylene glycol 3350 17 gram/dose oral powder RxNorm: 379681 Take 17=1 capful Gram(s) Oral QD mix with 4-8oz of liquid 01/08/20 22 025 Inactive take this in addition to BID prn order Lyrica 100 mg capsule RxNorm: 955608 Take 1 Capsule(s) Oral QAM every morning 01/08/20 22 022 Inactive d/c 50mg dose acetaminophen 500 mg tablet RxNorm: 021096 Take 1 Tablet(s) Oral TID 01/08/20 22 022 Inactive d/c PRN order Lyrica 150 mg capsule RxNorm: 691538 Take 1 Capsule(s) Oral QHS every night at bedtime 01/08/20 22 023 Inactive d/c 100mg dose Abilify 5 mg tablet RxNorm: 538309 Take 1 Tablet(s) Oral QD take 1 tab po QD #30 refill 5 dx: MDD 12/12/19 22 022 Inactive Abilify 5 mg tablet RxNorm: 397743 Take 1 Tablet(s) Oral QD take 1 tab po QD #30 refill 5 dx: MDD 12/12/19 22 022 Inactive Novolog Flexpen U-100 Insulin aspart 100 unit/mL (3 mL) subcutaneous RxNorm: 1938863 Inject 42 Unit(s) Subcutaneous TID in addition to sliding scale 12/10/19 22 022 Inactive d/c 36u chlorthalidone 25 mg tablet RxNorm: 026214 Take 1 Tablet(s) Oral QAM every morning 12/10/19 22 023 Inactive pregabalin 50 mg capsule RxNorm: 786612 Take 1 Capsule(s) Oral QAM every morning 11/12/19 22 022 Inactive tetanus-diphtheria toxoids-Td 2 Lf unit-2 Lf unit/0.5 mL IM suspension RxNorm: 139 Take 0.5 Miscellaneous Intramuscular 11/12/19 22 022 Inactive need tdap - nursing to administer upon arrival pregabalin 50 mg capsule RxNorm: 880924 Take 1 Capsule(s) Oral QAM every morning 10/16/19 22 022 Inactive pregabalin 50 mg capsule RxNorm: 201551 Take 1 Capsule(s) Oral QAM every morning 10/16/19 22 022 Inactive pregabalin 50 mg capsule RxNorm: 019132 1 Capsule(s) Oral QAM every morning 10/15/19 22 022 Inactive Shingrix (PF) 50 mcg/0.5 mL intramuscular suspension, kit RxNorm: 7037371 Administer 1/2 Milliliter(s) Intramuscular one time Nursing please administer upon arrival and once administered post a bridge message with date of administration, director international, expiration date, and lot# so we can update [facility]. 10/09/19 22 022 Inactive shingrix step 1 Shingrix (PF) 50 mcg/0.5 mL intramuscular suspension, kit RxNorm: 5590637 Administer 1/2 Milliliter(s) Intramuscular one time Nursing please administer upon arrival and once administered post a bridge message with date of administration, director international, expiration date, and lot# so we can [...] aspart 100 unit/mL (3 mL) subcutaneous RxNorm: 6678839 Inject 10 Unit(s) Subcutaneous QHS every night at bedtime with nighttime snack 10/08/19 22 Inactive Shingrix (PF) 50 mcg/0.5 mL intramuscular suspension, kit RxNorm: 5743105 ADMINISTER 2-DOSE SERIES PER CDC GUIDELINES 10/08/19 22 Active Shingrix (PF) 50 mcg/0.5 mL intramuscular suspension, kit RxNorm: 5716394 ADMINISTER 2-DOSE SERIES PER CDC GUIDELINES 10/08/19 22 022 Inactive Novolog Flexpen U-100 Insulin aspart 100 unit/mL (3 mL) subcutaneous RxNorm: 5707833 Inject 36 Unit(s) Subcutaneous TID in addition to sliding scale 10/08/19 22 Inactive cholecalciferol (vitamin D3) 1,250 mcg (50,000 unit) capsule RxNorm: 494813 Take 1 Capsule(s) Oral QW once a week 10/08/19 22 Inactive Novofine Autocover 30 gauge x 1/3 needle RxNorm: Use 1 Miscellaneous UD as directed Use 1 needle as directed to administer insulin 5 times a day Dx:E11.42. 10/03/19 22 022 Inactive ok to substitute with any covered alternative pen needle benzoyl peroxide 10 % topical cleanser RxNorm: 678243 Apply 1 Application Topical QD apply to face, wash rinse and dry once daily (may change to QOD if drying) 08/19/19 22 022 Inactive (%covered by insurance) #60ml refill 11 dx: acne benzoyl peroxide 10 % topical cleanser RxNorm: 572803 Apply 1 Application Topical QD apply to face, wash rinse and dry once daily (may change to QOD if drying) 08/19/19 22 022 Inactive (%covered by insurance) #60ml refill 11 dx: acne benzoyl peroxide 10 % topical cleanser RxNorm: 724252 Apply 1 Application Topical QD apply to face, wash rinse and dry once daily (may change to QOD if drying) 08/19/19 022 Inactive (%covered by insurance) #60ml refill 11 dx: acne Lyrica 50 mg capsule RxNorm: 646944 Take 1 Capsule(s) Oral QAM every morning Take 1 capsule by mouth once daily 08/19/19 22 022 Inactive benzoyl peroxide 10 % topical cleanser RxNorm: 167578 Apply 1 Application Topical QD apply to face, wash rinse and dry once daily (may change to QOD if drying) 08/19/19 22 022 Inactive (%covered by insurance) #60ml refill 11 dx: acne Lyrica 100 mg capsule RxNorm: 392266 Take 1 Capsule(s) Oral QHS every night at bedtime Take 1 capsule by mouth once daily at bedtime 08/19/19 22 022 Inactive Lyrica 100 mg capsule RxNorm: 129411 Take 1 Capsule(s) Oral QHS every night at bedtime Take 1 capsule by mouth once daily at bedtime 08/16/19 22 022 Inactive Lyrica 50 mg capsule RxNorm: 389619 Take 1 Capsule(s) Oral QAM every morning Take 1 capsule by mouth once daily 08/16/19 22 022 Inactive Levemir FlexTouch U-100 Insulin 100 unit/mL (3 mL) subcutaneous pen RxNorm: 795321 Inject 86 Unit(s) Subcutaneous BID 08/05/19 22 022 Inactive d/c 83units BID Lyrica 100 mg capsule RxNorm: 874465 Take 1 Capsule(s) Oral QHS every night at bedtime Take 1 capsule by mouth once daily at bedtime 07/14/19 22 022 Inactive Lyrica 50 mg capsule RxNorm: 889318 Take 1 Capsule(s) Oral QAM every morning Take 1 capsule by mouth once daily 07/14/19 22 022 Inactive Levemir FlexTouch U-100 Insulin 100 unit/mL (3 mL) subcutaneous pen RxNorm: 924870 Inject 83 Unit(s) Subcutaneous BID 07/08/19 22 [...] test strip hydralazine 50 mg tablet RxNorm: 056665 Take 1 Tablet(s) Oral QID 05/05/20 21 022 Inactive venlafaxine ER 225 mg tablet,extended release 24 hr RxNorm: 430959 Take 1 Tablet(s) Oral QD 05/05/20 Inactive venlafaxine ER 225 mg tablet,extended release 24 hr RxNorm: 421729 Take 1 Tablet(s) Oral QD 05/05/20 022 Inactive isosorbide mononitrate ER 30 mg tablet,extended release 24 hr RxNorm: 776946 Take 1 Tablet(s) Oral QD 05/05/20 024 Inactive hydralazine 50 mg tablet RxNorm: 259983 Take 1 Tablet(s) Oral QID 05/05/20 21 Inactive aspirin 81 mg tablet,delayed release RxNorm: 774225 Take 1 Tablet(s) Oral QD 03/31/20 022 Inactive Vitamin D2 1,250 mcg (50,000 unit) capsule RxNorm: 8978772 Take 1 Capsule(s) Oral QW once a week x 12 weeks 03/31/20 022 Inactive Vitamin D2 1,250 mcg (50,000 unit) capsule RxNorm: 1281224 Take 1 Capsule(s) Oral QW once a week 03/31/20 Inactive Zetia 10 mg tablet RxNorm: 518733 Take 1 Tablet(s) Oral QD 03/31/20 024 Inactive Zetia 10 mg tablet RxNorm: 946081 Take 1 Tablet(s) Oral QD 03/31/20 21 021 Inactive hydralazine 25 mg tablet RxNorm: 502026 Take 1 Tablet(s) Oral QID 11/15/ 021 Inactive hydralazine 25 mg tablet RxNorm: 914691 Take 1 Tablet(s) Oral QID 03/31/20 021 Inactive hydralazine 10 mg tablet RxNorm: 803027 Take 1 Tablet(s) Oral QID 03/03/20 021 Inactive cephalexin 500 mg tablet RxNorm: 923692 Take 1 Tablet(s) Oral QID 02/27/20 021 Inactive cephalexin 500 mg tablet RxNorm: 533052 Take 1 Tablet(s) Oral QID 02/27/20 021 Inactive lisinopril 40 mg tablet RxNorm: 528036 Take 1 Tablet(s) Oral QD 02/11/20 023 Inactive Eliquis 5 mg tablet RxNorm: 2165332 Take 1 Tablet(s) Oral BID 01/05/20 025 Inactive Eliquis 5 mg tablet RxNorm: 9680636 Take 2 Tablet(s) Oral QD 01/01/20 21 021 Inactive Lyrica 50 mg capsule RxNorm: 861502 Take 1 Capsule(s) Oral QAM every morning 12/24/19 021 Inactive Lyrica 100 mg capsule RxNorm: 776288 Take 1 Capsule(s) Oral QHS every night at bedtime 12/24/19 021 Inactive clotrimazole 1 % topical cream RxNorm: 663306 Apply to right foot and toes Topical BID 12/04/19 21 023 Inactive metoprolol succinate ER 200 mg tablet,extended release 24 hr RxNorm: 334745 Take 1 Tablet(s) Oral QD 12/04/19 023 Inactive ciprofloxacin 500 mg tablet RxNorm: 898010 Take 1 Tablet(s) Oral QD 11/30/19 21 021 Inactive DX ofloxacin otic drops Accu-Chek Guide test strips RxNorm: USE 1 TO CHECK GLUCOSE 4 TIMES DAILY AND NEEDED 11/15/19 21 023 Inactive Blood Glucose Test strips RxNorm: Use 1 Test Strip QID at PRN 11/05/19 21 023 Inactive E11.42 lisinopril 30 mg tablet RxNorm: 103623 Take 1 Tablet(s) Oral QD 10/30/19 21 021 Inactive lisinopril 20 mg tablet RxNorm: 281664 Take 1 Tablet(s) Oral QD 10/23/19 21 021 Inactive lisinopril 20 mg tablet RxNorm: 267444 Take 1 Tablet(s) Oral QD 10/23/19 21 021 Inactive lisinopril 10 mg tablet RxNorm: 884905 Take 1 Tablet(s) Oral QD 10/02/19 21 021 Inactive icosapent ethyl 1 gram capsule RxNorm: 5759444 Take 2 Capsule(s) (2 gm) Oral BID with meals 09/12/19 21 024 Inactive Okay to dispense one 2gm tab if you have that available. icosapent ethyl 1 gram capsule RxNorm: 5655540 Take 2 Capsule(s) Oral BID 09/12/19 21 021 Inactive Okay to dispense one 2gm tab if you have that available. amlodipine 10 mg tablet RxNorm: 150554 Take 1 Tablet(s) Oral QD 09/04/19 21 021 Inactive aspirin 81 mg tablet,delayed release RxNorm: 485927 Take 1 Tablet(s) Oral QD 09/04/19 21 021 Inactive Levemir FlexTouch U-100 Insulin 100 unit/mL (3 mL) subcutaneous pen RxNorm: 840131 Inject 150 Unit(s) Subcutaneous BID 09/04/19 21 022 Inactive venlafaxine ER 150 mg tablet,extended release 24 hr RxNorm: 509368 Take 1 Tablet(s) Oral QD 09/04/19 21 021 Inactive clotrimazole-betame thasone 1 %-0.05 % topical cream RxNorm: 316124 Apply to rash on red area on left abdomen/chest Topical BID 08/10/19 21 021 Inactive amlodipine 5 mg tablet RxNorm: 765563 Take 1 Tablet(s) Oral QD 07/31/19 21 021 Inactive cephalexin 500 mg tablet RxNorm: 647201 Take 1 Tablet(s) Oral BID BID - Twice Daily 07/31/19 21 021 Inactive Start 08/01/20 senna 8.6 mg tablet RxNorm: 622222 Take 1 Tablet(s) Oral QD 07/08/19 21 025 Inactive pantoprazole 40 mg tablet,delayed release RxNorm: 664198 Take 1 Tablet(s) Oral QAM every morning 07/08/19 025 Inactive clopidogrel 75 mg tablet RxNorm: 185241 Take 1 Tablet(s) Oral QD 07/08/19 021 Inactive Blood Glucose Test strips RxNorm: Use 1 Test Strip QID at PRN 07/08/19 Inactive E11.42 Novolog Flexpen U-100 Insulin aspart 100 unit/mL (3 mL) subcutaneous RxNorm: 3267901 Administer per sliding scale Milliliter(s) Subcutaneous TID 151-200: 10 u; 201-250: 20 u; 251-300: 30 u; 301-350: 40 u; 351-400: 50 u. 07/08/19 21 022 Inactive lisinopril 5 mg tablet RxNorm: 205377 Take 1 Tablet(s) Oral QD 07/08/19 021 Inactive Novolog Flexpen U-100 Insulin aspart 100 unit/mL (3 mL) subcutaneous RxNorm: 5438286 Inject 85 Unit(s) Subcutaneous TID 07/08/19 022 Inactive pravastatin 80 mg tablet RxNorm: 268027 Take 1 Tablet(s) Oral QHS every night at bedtime 07/08/19 023 Inactive clotrimazole 1 % topical cream RxNorm: 425774 Apply to bilateral groin areas Topical BID 07/08/19 21 022 Inactive metoprolol succinate ER 200 mg tablet,extended release 24 hr RxNorm: 163589 Take 1 Tablet(s) Oral QD 07/08/19 021 Inactive Vitamin D3 25 mcg (1,000 unit) tablet RxNorm: 946934 Take 1 Tablet(s) Oral QD 07/08/19 21 021 Inactive isosorbide dinitrate 30 mg tablet RxNorm: 488739 Take 1 Tablet(s) Oral QD 07/08/19 21 021 Inactive carbamazepine 200 mg tablet RxNorm: 055004 Take 1 Tablet(s) Oral BID 07/08/19 21 025 Inactive Levemir FlexTouch U-100 Insulin 100 unit/mL (3 mL) subcutaneous pen RxNorm: 584496 Inject 140 Unit(s) Subcutaneous BID 07/08/19 21 021 Inactive torsemide 20 mg tablet RxNorm: 406447 Take 1 Tablet(s) Oral QD 07/08/19 21 023 Inactive venlafaxine 75 mg tablet RxNorm: 949845 Take 1 Tablet(s) Oral QD 07/08/19 021 Inactive acetaminophen 500 mg tablet RxNorm: 491467 Take 1 Tablet(s) Oral TID as needed for headache 06/18/19 21 021 Inactive acetaminophen 500 mg tablet RxNorm: 913051 Take 1 Tablet(s) Oral TID as needed for headache 06/18/19 021 Inactive Lyrica 100 mg capsule RxNorm: 343886 Take 1 Capsule(s) Oral QHS every night at bedtime 06/11/19 021 Inactive Lyrica 50 mg capsule RxNorm: 871981 Take 1 Capsule(s) Oral QAM every morning 06/10/19 21 021 Inactive hydrocortisone 2.5 % topical cream RxNorm: 861583 Apply to bilateral groin creases Topical BID 05/15/20 20 021 Inactive clotrimazole 1 % topical cream RxNorm: 785734 Apply to bilateral groin areas Topical BID 05/15/20 20 021 Inactive Lyrica 50 mg capsule RxNorm: 427034 Take 1 Capsule(s) Oral QAM every morning 05/14/20 20 020 Inactive Lyrica 100 mg capsule RxNorm: 284253 Take 1 Capsule(s) Oral QHS every night [...] Inactive Nystop 100,000 unit/gram topical powder RxNorm: 462244 Apply to abd folds, under breasts and L side of groin Topical BID x 14 days, then BID PRN 04/08/20 20 Inactive dx: yeast dermatitis Lyrica 100 mg capsule RxNorm: 939202 Take 1 Capsule(s) Oral QHS every night at bedtime 03/13/20 20 Inactive Lyrica 50 mg capsule RxNorm: 607823 Take 1 Capsule(s) Oral QAM every morning 03/13/20 20 Inactive ketoconazole 2 % shampoo RxNorm: 778602 Apply Topical two times a week with showers 03/11/20 20 024 Inactive cholecalciferol (vitamin D3) 50 mcg (2,000 unit) tablet RxNorm: 097396 Take 1 Tablet(s) Oral QD 03/11/20 20 021 Inactive Zetia 10 mg tablet RxNorm: 006314 Take 1 Tablet(s) Oral QD 03/07/20 20 021 Inactive Zetia 10 mg tablet RxNorm: 515623 Take 1 Tablet(s) Oral QD 03/07/20 20 020 Inactive Lyrica 50 mg capsule RxNorm: 365869 Take 1 Capsule(s) Oral QAM every morning 02/15/20 20 Inactive Lyrica 100 mg capsule RxNorm: 137700 Take 1 Capsule(s) Oral QHS every night at bedtime 02/15/20 20 020 Inactive Lyrica 100 mg capsule RxNorm: 780089 Take 1 Capsule(s) Oral QHS every night at bedtime 02/15/20 20 020 Inactive Lyrica 50 mg capsule RxNorm: 665444 Take 1 Capsule(s) Oral QAM every morning 02/15/20 20 020 Inactive loperamide 2 mg capsule RxNorm: 426000 Take 1 Capsule(s) Oral QID as needed 09/06/19 025 Inactive venlafaxine ER 75 mg capsule,extended release 24 hr RxNorm: 741602 Take 3 Capsule(s) Oral QD 06/12/19 023 Inactive polyethylene glycol 3350 17 gram/dose oral powder RxNorm: 438729 Take 17=1 capful Gram(s) Oral BID as needed mix with 4-8oz of liquid 06/12/19 024 Inactive icosapent ethyl 1 gram capsule RxNorm: 2485396 Take 2 Capsule(s) (2 gm) Oral BID with meals 10/07/19 23 023 Inactive Okay to dispense one 2gm tab if you have that available. Levemir FlexTouch U-100 Insulin 100 unit/mL (3 mL) subcutaneous pen RxNorm: 842736 Inject 80 Unit(s) Subcutaneous BID 07/14/19 23 023 Inactive metoprolol succinate ER 200 mg tablet,extended release 24 hr RxNorm: 923496 Take 1 Tablet(s) Oral QD 08/12/19 025 Inactive hydralazine 50 mg tablet RxNorm: 503758 Take 1 Tablet(s) Oral QID 08/12/19 025 Inactive Soft Touch Lancets RxNorm: miscellaneous 03/04/20 24 025 Inactive Novolog Flexpen U-100 Insulin aspart 100 unit/mL (3 mL) subcutaneous RxNorm: 1827936 Insert 30 Unit(s) Subcutaneous TID with meals [...] Activity Notes Codes Status Date Referral: [facility] [address] [id number] [place] [facility] Appointment Scheduled 10/20/2024 Referral: [facility]/Endocrinology WPtel: [address] [place], [place] [id number] [place] Referral No Records Received 07/10/2024 Patient Education: Patient Medication Summary Completed 06/29/2024 Appointment: Brian Munson WPtel: [phone] AWV 02/08/2024 Appointment: Brian Munson WPtel: [phone] [place] F/U 01/11/2024 Appointment: Sandra Clark WPtel: [phone] Telehealth Psych Follow Up 12/09 Appointment: Tapan Shirley WPtel: [address] [place], [place] [phone] TCM 10/26/2022 Referral: [facility] WPtel: [address], [address] [id number] Referral Records Received 09/21/2022 Appointment: Tapan Shirley WPtel: [address] [place], [place] [id number] [place] F/U 08/11/2022 Appointment: Tapan Shirley WPtel: [address] [place], [place] [phone] [place] F/U 07/14/2022 Appointment: Tapan Shirley WPtel: [address] [place], [place] [phone] [place] F/U 02/10/2022 Referral: [facility] WPtel: [address] [id number] [place] Referral Completed 05/28/2021 Referral: General Cardiology [...] Sister Jyotsna involved in his care cell# [phone] Guardian: Giulia (tapan met in person 09/01/21), [...] appointment 05.26.2024 with Jessa Webster MD at [facility]. Start Pioglitazone 15 mg QD. Stop Basaglar insulin. Increase Ozempic 2 mg once wkly. Continue Humalin R U-500 100 units with meals TID. FOLLOW UP 2 MONTHS. If BG >400 add 50 units to next scheduled dose of Humalin R U 500 insulin 06/12/2024
--- OUTSIDE RECORDS SUMMARY | 2024-10-19 19:19 | XMS_ITS | CCD ---
Author Name Cecilio Durham Address [address] [place] [address] Phone Organization [facility] Phone Care Team Providers Care Business Intelligence Manager Name Role Phone Harrison Durham Primary Care Provider Leona vailable Unavailable Chronic Care Management Unavaila ble Summary Purpose DataExchange Insurance Providers Payer name Policy type / Coverage type Covered democrat ID Effective Begin Date Effective End Date [place] Part B [id number] Unknown Unknown [place] Part B [id number] Unknown Unknown Family history Sister Brittany Suggs Diagnosis Age At Onset No Family Disease Entered N/A Runs in the family Diagnosis Age At Onset No Known Diseases N/A Sister Blanka Mcduffie Diagnosis Age At Onset No Family Disease Entered N/A Social History Social History Element Codes Description Effec tive Dates Tobacco history SNOMED CT: 324906826 Never smoker 01/16 Sexually Active? Unknown No [...] Half-Way 09/03/[address]: 583487844 No Alcohol Consum ption 09/02/2020 Allergies, Adverse Reactions, Alerts Substance Reaction Codes Entered Date Inactivated Date Status * NO KNOWN FOOD ALLERGIES Unknown 07/13/2023 No Inactive Date Active LISINOPRIL RxNorm: 18900 02/12/2020 No Inactive Da te Active Metformin [...] Instructions nystatin 100,000 unit/gram topical powder RxNorm: 368085 Apply 1 Application Topical BID as needed abdominal/breast /groin folds 04/11/20 24 024 Inactive chlorthalidone 25 mg tablet RxNorm: 812800 Take 1 Tablet(s) Oral QAM every morning 04/06/20 24 No Stop Date Active pregabalin 150 mg capsule RxNorm: 677680 Take 1 Capsule(s) Oral QHS every night at bedtime 03/31/20 24 024 Inactive Vascepa 1 gram capsule RxNorm: 9389710 Take 2 Capsule(s) Oral BID 03/30/20 24 025 Active rosuvastatin 40 mg tablet RxNorm: 882082 1 TAB ORALLY EVERY EVENING (DX:CORONARY ARTERY DISEASE) 03/28/20 No Stop Date Active venlafaxine ER 75 mg capsule,extended release 24 hr RxNorm: 619645 3 CAPS (225MG) ORALLY DAILY (DX: MOOD DISORDER) 03/28/20 No Stop Date Active pregabalin 100 mg capsule RxNorm: 904733 Take 1 Capsule(s) Oral QAM every morning 03/20/20 Inactive cholecalciferol (vitamin D3) 1,250 mcg (50,000 unit) capsule RxNorm: 034197 Take 1 Capsule(s) Oral QW once a [...] Insulin 100 unit/mL (3 mL) subcutaneous RxNorm: 1585991 Inject 40 Unit(s) Subcutaneous BID 03/07/20 025 Inactive Please dispense one month supply. Humulin R U-500 (Concentrated) Insulin 500 unit/mL subcutaneous soln RxNorm: 727066 Inject 100 Unit(s) Subcutaneous AC before meals [...] PRN) to be use with new Accu Sherwood meter 03/04/20 Inactive ok to substitute with any covered alternative test strip FreeStyle Chema 2 Sensor kit RxNorm: Use UD as directed 03/02/20 025 Inactive FreeStyle Chema 2 Sensor kit RxNorm: Use UD as directed 03/02/20 Inactive Pen Needle 30 gauge x 516 RxNorm: Pen(s) Use 1 needle as directed TID 03/02/20 Inactive nystatin 100,000 unit/gram topical powder RxNorm: 783252 Apply 1 Application Topical BID as needed [...] (Concentrated) Insulin 500 unit/mL subcutaneous soln RxNorm: 145412 Inject 100 Unit(s) Subcutaneous TID 02/17/20 24 024 Inactive Humulin R U-500 (Concentrated) Insulin 500 unit/mL subcutaneous soln RxNorm: 057139 Inject 100 Unit(s) Subcutaneous TID 02/10/20 24 024 Inactive Basaglar KwikPen U-100 Insulin 100 unit/mL (3 mL) subcutaneous RxNorm: 9408007 Inject 30 Unit(s) Subcutaneous BID 02/10/20 24 024 Inactive Please dispense one month supply. pregabalin 100 mg capsule RxNorm: 562945 Take 1 Capsule(s) Oral QAM every morning 02/07/20 24 024 Inactive isosorbide mononitrate ER 60 mg tablet,extended release 24 hr RxNorm: 067939 Take 1 Tablet(s) Oral QD 02/01/20 24 Active aripiprazole 15 mg tablet RxNorm: 300744 Take 1/2 Tablet(s) Oral QD 02/01/20 24 Active torsemide 20 mg tablet RxNorm: 563941 1 TAB ORALLY DAILY (DX: EDEMA) 01/27/20 No Stop Date Active potassium chloride ER 20 mEq tablet,extended release(part/cryst) RxNorm: 9801569 2 TABS (40MEQ) ORALLY TWICE DAILY (DX: HYPOKALEMIA) 01/27/20 24 025 Inactive cephalexin 500 mg capsule RxNorm: 812122 Take 1 Capsule(s) Oral QID 12/17/19 24 024 Inactive cephalexin 500 mg capsule RxNorm: 963135 Take 1 Capsule(s) Oral QID 12/17/19 24 024 Inactive acetaminophen 500 mg tablet RxNorm: 704291 (MAX APAP:4GM/24HR) Take 1 Tablet(s) Oral TID as needed for pain 12/10/19 24 024 Inactive torsemide 20 mg tablet RxNorm: 954979 Take 1 Tablet(s) Oral QD 10/26/19 24 Inactive potassium chloride ER 20 mEq tablet,extended release RxNorm: 135853 Take 2 Tablet(s) Oral BID 10/26/19 24 025 Inactive torsemide 20 mg tablet RxNorm: 431395 Take 1 Tablet(s) Oral QD 10/26/19 24 024 Inactive potassium chloride ER 20 mEq tablet,extended release RxNorm: 535211 Take 2 Tablet(s) Oral BID 10/26/19 24 024 Inactive Artificial Tears (PF) 0.1 %-0.3 % drops in a dropperette RxNorm: 884211 Apply 1-2 Drop(s) Both eyes BID as needed 09/28/19 24 Inactive erythromycin 5 mg/gram (0.5 %) eye ointment RxNorm: 198967 Apply 1 Application Both eyes QHS every night at bedtime Instill ~1 cm ribbon into affected eye 09/28/19 24 024 Inactive Artificial Tears (PF) 0.1 %-0.3 % drops in a dropperette RxNorm: 088824 Apply 1-2 Drop(s) Both eyes BID as needed 09/28/19 24 024 Inactive erythromycin 5 mg/gram (0.5 %) eye ointment RxNorm: 521308 Apply 1 Application Both eyes QHS every night at bedtime Instill ~1 cm ribbon into affected eye 09/28/19 24 024 Inactive acetaminophen 500 mg tablet RxNorm: 271605 (MAX APAP:4GM/24HR) Take 1 Tablet(s) Oral TID as needed for pain 09/24/19 24 024 Inactive carvedilol 25 mg tablet RxNorm: 978669 Take 1 Tablet(s) Oral QD 09/08/19 No Stop Date Active pregabalin 100 mg capsule RxNorm: 717287 Take 1 Capsule(s) Oral QAM every morning 09/07/19 24 024 Inactive ezetimibe 10 mg tablet RxNorm: 827916 Take 1 Tablet(s) Oral QD 07/13/19 24 025 Inactive bisacodyl 10 mg rectal suppository RxNorm: 491401 Insert 1 Suppository Rectal QD as needed 07/13/19 No Stop Date Active polyethylene glycol 3350 17 gram/dose oral powder RxNorm: 811431 Take 17 Gram(s) Oral BID as needed mix in 4-8ox water 07/13/19 24 025 Inactive ketoconazole 2 % shampoo RxNorm: 229776 Apply 1 Application Topical UD as directed 07/13/19 No Stop Date Active Ozempic 1 mg/dose (4 mg/3 mL) subcutaneous pen injector RxNorm: 3514997 Inject 1 Milligram(s) Subcutaneous QW once a week 07/13/19 No Stop Date Active Guaifenesin AC 10 mg-100 mg/5 mL oral liquid RxNorm: 540105 Take 10 Milliliter(s) Oral Q4H every four hours as needed 07/13/19 No Stop Date Active ammonium lactate 12 % topical cream RxNorm: 592543 Apply 1 Application Topical BID 07/13/19 24 025 Inactive hydrocortisone 2.5 % topical cream RxNorm: 293054 Apply 1 Application Topical BID as needed 07/13/19 No Stop Date Active rosuvastatin 20 mg sprinkle capsule RxNorm: 5706349 Take 1 Capsule(s) Oral QD 07/13/19 24 025 Inactive rosuvastatin 40 mg tablet RxNorm: 722105 Take 1 Tablet(s) Oral QPM every evening 07/13/19 24 024 Inactive aripiprazole 15 mg tablet RxNorm: 916406 Take 1/2 Tablet(s) Oral QD 07/13/19 24 024 Inactive isosorbide mononitrate ER 60 mg tablet,extended release 24 hr RxNorm: 346445 Take 1 Tablet(s) Oral QD 07/13/19 24 024 Inactive Vascepa 1 gram capsule RxNorm: 8521247 Take 2 Capsule(s) Oral BID 07/13/19 24 024 Inactive venlafaxine ER 75 mg capsule,extended release 24 hr RxNorm: 473636 Take 3 Capsule(s) Oral QD 07/13/19 24 024 Inactive Basaglar KwikPen U-100 Insulin 100 unit/mL (3 mL) subcutaneous RxNorm: 2360242 Inject 30U SubQ twice daily 07/07/19 24 024 Inactive Please dispense one month supply. Basaglar KwikPen U-100 Insulin 100 unit/mL (3 mL) subcutaneous RxNorm: 1217025 Inject 30U SubQ twice daily 07/07/19 24 024 Inactive Please dispense one month supply. pregabalin 150 mg capsule RxNorm: 625527 Take 1 Capsule(s) Oral QHS every night at bedtime 07/05/19 24 024 Inactive pregabalin 150 mg capsule RxNorm: 885977 Take 1 Capsule(s) Oral QHS every night at bedtime 07/05/19 24 024 Inactive polyethylene glycol 3350 17 gram/dose oral powder RxNorm: 777866 Take 1 Packet Oral QD as needed (1 packet = 17g) mix with 4-8oz of liquid 06/15/19 024 Inactive bisacodyl 10 mg rectal suppository RxNorm: 886354 Insert one suppository per rectum once daily as needed for constipation 06/15/19 024 Inactive bisacodyl 10 mg rectal suppository RxNorm: 522733 Insert one suppository per rectum once daily as needed for constipation 06/15/19 024 Inactive pregabalin 100 mg capsule RxNorm: 827928 Take 1 Capsule(s) Oral QAM every morning 04/27/20 024 Inactive Levemir FlexPen 100 unit/mL (3 mL) solution subcutaneous insulin pen RxNorm: 627989 Inject 30 Unit(s) Subcutaneous BID 04/27/20 024 Inactive rosuvastatin 40 mg tablet RxNorm: 214778 Take 1 Tablet(s) Oral QPM every evening 04/16/20 024 Inactive D/C rosuvastatin 20mg venlafaxine ER 75 mg capsule,extended release 24 hr RxNorm: 261784 Take 3 Capsule(s) Oral QD 04/14/20 023 Inactive pregabalin 100 mg capsule RxNorm: 732794 Take 1 Capsule(s) Oral QAM every morning [...] strip clotrimazole 1 % topical cream RxNorm: 859730 Take apply topically to abdominal folds twice daily for 14 days 03/12/20 024 Inactive Ozempic 1 mg/dose (4 mg/3 mL) subcutaneous pen injector RxNorm: 4136513 Inject 1 Milligram(s) Subcutaneous QW once a week 03/11/20 23 023 Inactive rosuvastatin 20 mg tablet RxNorm: 716850 Take 1 Tablet(s) Oral QD 02/26/20 23 023 Inactive d/c pravastatin 80mg Ozempic 1 mg/dose (4 mg/3 mL) subcutaneous pen injector RxNorm: 8940683 Inject 1 Milligram(s) Subcutaneous QW once a week 02/20/20 23 023 Inactive pregabalin 150 mg capsule RxNorm: 647104 Take 1 Capsule(s) Oral HS at bed time 02/19/20 23 023 Inactive pregabalin 100 mg capsule RxNorm: 093578 Take 1 Capsule(s) Oral QAM every morning 02/18/20 023 Inactive venlafaxine ER 75 mg capsule,extended release 24 hr RxNorm: 222811 Take 3 Capsule(s) Oral QD 02/04/20 023 Inactive FreeStyle Chema 2 Sensor kit RxNorm: use as directed 02/04/20 23 023 Inactive FreeStyle Chema 2 Sensor kit RxNorm: use as directed 02/04/20 23 024 Inactive fluconazole 150 mg tablet RxNorm: 301029 Take 1 Tablet(s) Oral on day 3 and on day 6 02/03/20 23 024 Inactive venlafaxine ER 150 mg capsule,extended release 24 hr RxNorm: 715920 Take 1 Capsule(s) Oral QD 02/03/20 23 023 Inactive chlorthalidone 25 mg tablet RxNorm: 652825 Take 1 Tablet(s) Oral QAM every morning 02/03/20 23 024 Inactive acetaminophen 500 mg tablet RxNorm: 396435 1 TABLET ORALLY 3 TIMES DAILY (MAX APAP:4GM/24HR) 12/15/19 23 023 Inactive clotrimazole 1 % topical cream RxNorm: 532186 apply 1g topically to top of feet and in between toes BID 12/09/19 23 025 Inactive potassium chloride ER 20 mEq tablet,extended release RxNorm: 950266 Take 1 Tablet(s) Oral BID 12/09/19 024 Inactive d/c 20mEq once daily (sent from hospital) nystatin 100,000 unit/gram topical powder RxNorm: 687465 APPLY TO AFFECTED AREAS TOPICALLY 2 TIMES DAILY 11/21/19 23 023 Inactive Nystop 100,000 unit/gram topical powder RxNorm: 180680 Apply to abd folds, under breasts and L side of groin Topical BID x 14 days, then BID PRN 11/20/19 023 Inactive dx: yeast dermatitis Bengay Ultra Strength 4 %-30 %-10 % topical cream RxNorm: 138752 Apply 1 Gram(s) Topical QID PRN to feet and legs for neuropathic pain 11/11/19 024 Inactive clotrimazole 1 % topical cream RxNorm: 882904 Apply 1/2 Gram(s) Topical BID Apply to affected areas of groin, periarea, and abdominal topically 2 times daily 11/10/19 023 Inactive hydrocortisone 2.5 % topical cream RxNorm: 965885 Apply 1/2 Gram(s) Topical BID as needed 11/10/19 024 Inactive Levemir FlexPen 100 unit/mL (3 mL) solution subcutaneous insulin pen RxNorm: 118694 Inject 30 Unit(s) Subcutaneous BID 10/07/19 023 Inactive Humulin R U-500 (Concentrated) Insulin 500 unit/mL subcutaneous soln RxNorm: 724888 Inject 100 Unit(s) Subcutaneous TID 10/07/19 024 Inactive Ozempic 0.25 mg or 0.5 mg (2 mg/3 mL) subcutaneous pen injector RxNorm: 1134733 Inject 1/2 Milligram(s) Subcutaneous QW once a week 10/07/19 024 Inactive aripiprazole 15 mg tablet RxNorm: 036036 1/2 TAB (7.5MG) ORALLY DAILY (DX:MAJOR DEPRESSIVE DISORDER) 09/23/19 023 Inactive Accu-Chek Guide test strips RxNorm: Use 1 Test Strip QID 09/15/19 23 023 Inactive ok to substitute with any covered alternative test strip Lancets,Thin 28 gauge RxNorm: Use 1 as directed QID 09/15/19 23 023 Inactive torsemide 20 mg tablet RxNorm: 262121 Take 1 Tablet(s) Oral BID 09/09/19 23 024 Inactive d/c once daily dosing carvedilol 25 mg tablet RxNorm: 974624 Take 1 Tablet(s) Oral QD 08/25/19 23 024 Inactive pregabalin 150 mg capsule RxNorm: 857794 1 Capsule(s) Oral HS at bed time 08/18/19 23 023 Inactive pregabalin 100 mg capsule RxNorm: 483729 1 Capsule(s) Oral QAM every morning 08/18/19 23 023 Inactive carvedilol 25 mg tablet RxNorm: 961154 1 Tablet(s) Oral QD 07/28/19 23 023 Inactive lisinopril 20 mg tablet RxNorm: 949470 Give 1 Tablet(s) Oral QD 07/28/19 23 023 Inactive Lyrica 150 mg capsule RxNorm: 744251 Take 1 Capsule(s) Oral QHS every night at bedtime 07/19/19 23 023 Inactive d/c 100mg dose Diflucan 150 mg tablet RxNorm: 966791 Take 1 Tablet(s) Oral QD repeat on day 3 and 6 07/19/19 23 023 Inactive pregabalin 100 mg capsule RxNorm: 331693 Take 1 Capsule(s) Oral QAM every morning 07/19/19 23 023 Inactive gatifloxacin 0.5 % eye drops RxNorm: 577498 Instill 1 Drop(s) as directed TID Instill 1 drop in to affected eye(s) starting 1 day prior to surgery and continue until gone (do not exceed 4 weeks). 07/13/19 23 023 Inactive carvedilol 25 mg tablet RxNorm: 186419 2 Tablet(s) Oral BID 07/13/19 23 023 Inactive Humulin R Regular U-100 Insulin 100 unit/mL injection solution RxNorm: 779935 85 Unit(s) Injection TID 07/13/19 23 023 Inactive ketorolac 0.5 % eye drops RxNorm: 602249 Instill 1 Drop(s) as directed QID Instill 1 drop into affected eye(s) 4 times daily starting 1 day prior to surgery and continue until gone (do not exceed 4 weeks). 07/13/19 23 023 Inactive Diflucan 150 mg tablet RxNorm: 507339 Take 1 Tablet(s) Oral QD repeat on day 3 and 6 06/30/19 23 023 Inactive Accu-Chek Guide test strips RxNorm: Use 1 Test Strip QID Use 1 test strip to monitor blood glucose 4 times daily and as needed. Dx:E11.42. 06/23/19 23 023 Inactive ok to substitute with any covered alternative test strip dextromethorphan-gu aifenesin 10 mg-100 mg/5 mL oral liquid RxNorm: 334534 Take 10 Milliliter(s) Oral every 4 hours as needed for cough 06/19/19 23 023 Inactive dextromethorphan-gu aifenesin 10 mg-100 mg/5 mL oral liquid RxNorm: 681999 Take 10 Milliliter(s) Oral every 4 hours as needed for cough 06/19/19 23 023 Inactive Lyrica 150 mg capsule RxNorm: 135228 Take 1 Capsule(s) Oral QHS every night at bedtime 06/18/19 23 023 Inactive d/c 100mg dose aripiprazole 15 mg tablet RxNorm: 480453 /2 TAB (7.5MG) ORALLY DAILY (DX:MAJOR DEPRESSIVE DISORDER) 06/05/19 23 023 Inactive pregabalin 100 mg capsule RxNorm: 783940 1 Capsule(s) Oral QAM every morning 06/02/19 23 023 Inactive Banophen 50 mg capsule RxNorm: 2156193 Take 1 Capsule(s) Oral Q6H every 6 hours as needed 05/19/19 23 No Stop Date Active Novolog Flexpen U-100 Insulin aspart 100 unit/mL (3 mL) subcutaneous RxNorm: 3324994 Inject 10 Unit(s) Subcutaneous QHS every night at bedtime with nighttime snack 04/08/20 Inactive Novolog Flexpen U-100 Insulin aspart 100 unit/mL (3 mL) subcutaneous RxNorm: 7327414 Inject 42 Unit(s) Subcutaneous TID in addition to sliding scale 04/08/20 Inactive d/c 36u albuterol sulfate HFA 90 mcg/actuation aerosol inhaler RxNorm: 9774500 Take 2 Puff(s) Inhalation Q4H every four hours as needed as needed for SOB, cough, or wheezing 04/07/20 030 Active Banophen 50 mg capsule RxNorm: 4605893 Take 1 Capsule(s) Oral Q6H every 6 hours as needed 04/06/20 023 Inactive diphenhydramine 50 mg tablet RxNorm: 3420360 Take 1 Tablet(s) Oral Q6H every 6 hours as needed 04/06/20 022 Inactive diphenhydramine 50 mg tablet RxNorm: 1439009 1 Tablet(s) Oral Q6H every 6 hours as needed 04/06/20 022 Inactive Abilify 15 mg tablet RxNorm: 677842 1/2 Tablet(s) Oral QD 03/10/20 023 Inactive Shingrix (PF) 50 mcg/0.5 mL intramuscular suspension, kit RxNorm: 8508836 Administer 1/2 Milliliter(s) Intramuscular QD one time shingrix step 2 ( step 1 given 11/04/21) WITH needle - Nursing please administer upon arrival and once administered post a bridge message with date of administration, cad technician, expiration date, and lot# so we can update [facility] 02/18/20 22 022 Inactive dispense with needle Shingrix (PF) 50 mcg/0.5 mL intramuscular suspension, kit RxNorm: 5645858 Administer 1/2 Milliliter(s) Intramuscular QD one time shingrix step 2 ( step 1 given 11/04/21) WITH needle - Nursing please administer upon arrival and once administered post a bridge message with date of administration, cad technician, expiration date, and lot# so we can update [facility] 02/18/20 22 022 Inactive dispense with needle polyethylene glycol 3350 17 gram/dose oral powder RxNorm: 508506 Take 17=1 capful Gram(s) Oral QD mix with 4-8oz of liquid 01/08/20 22 025 Inactive take this in addition to BID prn order Lyrica 100 mg capsule RxNorm: 345276 Take 1 Capsule(s) Oral QAM every morning 01/08/20 22 022 Inactive d/c 50mg dose acetaminophen 500 mg tablet RxNorm: 293824 Take 1 Tablet(s) Oral TID 01/08/20 22 022 Inactive d/c PRN order Lyrica 150 mg capsule RxNorm: 084926 Take 1 Capsule(s) Oral QHS every night at bedtime 01/08/20 22 023 Inactive d/c 100mg dose Abilify 5 mg tablet RxNorm: 951387 Take 1 Tablet(s) Oral QD take 1 tab po QD #30 refill 5 dx: MDD 12/12/19 22 022 Inactive Abilify 5 mg tablet RxNorm: 166374 Take 1 Tablet(s) Oral QD take 1 tab po QD #30 refill 5 dx: MDD 12/12/19 22 022 Inactive Novolog Flexpen U-100 Insulin aspart 100 unit/mL (3 mL) subcutaneous RxNorm: 1663846 Inject 42 Unit(s) Subcutaneous TID in addition to sliding scale 12/10/19 22 022 Inactive d/c 36u chlorthalidone 25 mg tablet RxNorm: 901741 Take 1 Tablet(s) Oral QAM every morning 12/10/19 22 023 Inactive pregabalin 50 mg capsule RxNorm: 397143 Take 1 Capsule(s) Oral QAM every morning 11/12/19 22 022 Inactive tetanus-diphtheria toxoids-Td 2 Lf unit-2 Lf unit/0.5 mL IM suspension RxNorm: 139 Take 0.5 Miscellaneous Intramuscular 11/12/19 22 022 Inactive need tdap - nursing to administer upon arrival pregabalin 50 mg capsule RxNorm: 779400 Take 1 Capsule(s) Oral QAM every morning 10/16/19 22 022 Inactive pregabalin 50 mg capsule RxNorm: 975327 Take 1 Capsule(s) Oral QAM every morning 10/16/19 22 Inactive pregabalin 50 mg capsule RxNorm: 120061 1 Capsule(s) Oral QAM every morning 10/15/19 22 Inactive Shingrix (PF) 50 mcg/0.5 mL intramuscular suspension, kit RxNorm: 0849513 Administer 1/2 Milliliter(s) Intramuscular one time Nursing please administer upon arrival and once administered post a bridge message with date of administration, cad 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 10/09/19 22 022 Inactive shingrix step 1 Shingrix (PF) 50 mcg/0.5 mL intramuscular suspension, kit RxNorm: 9186476 Administer 1/2 Milliliter(s) Intramuscular one time Nursing please administer upon arrival and once administered post a bridge message with date of administration, cad technician, expiration date, and lot# so we [...] aspart 100 unit/mL (3 mL) subcutaneous RxNorm: 8524212 Inject 10 Unit(s) Subcutaneous QHS every night at bedtime with nighttime snack 10/08/19 22 022 Inactive Shingrix (PF) 50 mcg/0.5 mL intramuscular suspension, kit RxNorm: 8434325 ADMINISTER 2-DOSE SERIES PER CDC GUIDELINES 10/08/19 22 022 Active Shingrix (PF) 50 mcg/0.5 mL intramuscular suspension, kit RxNorm: 8977406 ADMINISTER 2-DOSE SERIES PER CDC GUIDELINES 10/08/19 22 Inactive Novolog Flexpen U-100 Insulin aspart 100 unit/mL (3 mL) subcutaneous RxNorm: 8706853 Inject 36 Unit(s) Subcutaneous TID in addition to sliding scale 10/08/19 022 Inactive cholecalciferol (vitamin D3) 1,250 mcg (50,000 unit) capsule RxNorm: 401773 Take 1 Capsule(s) Oral QW once a week 10/08/19 Inactive Novofine Autocover 30 gauge x 1/3 needle RxNorm: Use 1 Miscellaneous UD as directed Use 1 needle as directed to administer insulin 5 times a day Dx:E11.42. 10/03/19 Inactive ok to substitute with any covered alternative pen needle benzoyl peroxide 10 % topical cleanser RxNorm: 065391 Apply 1 Application Topical QD apply to face, wash rinse and dry once daily (may change to QOD if drying) 08/19/19 22 022 Inactive (%covered by insurance) #60ml refill 11 dx: acne benzoyl peroxide 10 % topical cleanser RxNorm: 987819 Apply 1 Application Topical QD apply to face, wash rinse and dry once daily (may change to QOD if drying) 08/19/19 022 Inactive (%covered by insurance) #60ml refill 11 dx: acne benzoyl peroxide 10 % topical cleanser RxNorm: 928185 Apply 1 Application Topical QD apply to face, wash rinse and dry once daily (may change to QOD if drying) 08/19/19 22 022 Inactive (%covered by insurance) #60ml refill 11 dx: acne Lyrica 50 mg capsule RxNorm: 877583 Take 1 Capsule(s) Oral QAM every morning Take 1 capsule by mouth once daily 08/19/19 22 022 Inactive benzoyl peroxide 10 % topical cleanser RxNorm: 238969 Apply 1 Application Topical QD apply to face, wash rinse and dry once daily (may change to QOD if drying) 08/19/19 22 022 Inactive (%covered by insurance) #60ml refill 11 dx: acne Lyrica 100 mg capsule RxNorm: 138572 Take 1 Capsule(s) Oral QHS every night at bedtime Take 1 capsule by mouth once daily at bedtime 08/19/19 22 022 Inactive Lyrica 100 mg capsule RxNorm: 511760 Take 1 Capsule(s) Oral QHS every night at bedtime Take 1 capsule by mouth once daily at bedtime 08/16/19 22 022 Inactive Lyrica 50 mg capsule RxNorm: 758106 Take 1 Capsule(s) Oral QAM every morning Take 1 capsule by mouth once daily 08/16/19 22 022 Inactive Levemir FlexTouch U-100 Insulin 100 unit/mL (3 mL) subcutaneous pen RxNorm: 197275 Inject 86 Unit(s) Subcutaneous BID 08/05/19 22 022 Inactive d/c 83units BID Lyrica 100 mg capsule RxNorm: 023139 Take 1 Capsule(s) Oral QHS every night at bedtime Take 1 capsule by mouth once daily at bedtime 07/14/19 22 022 Inactive Lyrica 50 mg capsule RxNorm: 237823 Take 1 Capsule(s) Oral QAM every morning Take 1 capsule by mouth once daily 07/14/19 22 022 Inactive Levemir FlexTouch U-100 Insulin 100 unit/mL (3 mL) subcutaneous pen RxNorm: 429729 Inject 83 Unit(s) Subcutaneous BID 07/08/19 22 [...] test strip hydralazine 50 mg tablet RxNorm: 103565 Take 1 Tablet(s) Oral QID 05/05/20 21 022 Inactive venlafaxine ER 225 mg tablet,extended release 24 hr RxNorm: 928954 Take 1 Tablet(s) Oral QD 05/05/20 21 021 Inactive venlafaxine ER 225 mg tablet,extended release 24 hr RxNorm: 277383 Take 1 Tablet(s) Oral QD 05/05/20 21 022 Inactive isosorbide mononitrate ER 30 mg tablet,extended release 24 hr RxNorm: 088769 Take 1 Tablet(s) Oral QD 05/05/20 21 024 Inactive hydralazine 50 mg tablet RxNorm: 534106 Take 1 Tablet(s) Oral QID 05/05/20 21 021 Inactive aspirin 81 mg tablet,delayed release RxNorm: 675187 Take 1 Tablet(s) Oral QD 03/31/20 21 022 Inactive Vitamin D2 1,250 mcg (50,000 unit) capsule RxNorm: 2765718 Take 1 Capsule(s) Oral QW once a week x 12 weeks 03/31/20 022 Inactive Vitamin D2 1,250 mcg (50,000 unit) capsule RxNorm: 3015894 Take 1 Capsule(s) Oral QW once a week 03/31/20 Inactive Zetia 10 mg tablet RxNorm: 208084 Take 1 Tablet(s) Oral QD 03/31/20 024 Inactive Zetia 10 mg tablet RxNorm: 604698 Take 1 Tablet(s) Oral QD 03/31/20 021 Inactive hydralazine 25 mg tablet RxNorm: 067472 Take 1 Tablet(s) Oral QID 03/31/20 021 Inactive hydralazine 25 mg tablet RxNorm: 467307 Take 1 Tablet(s) Oral QID 03/31/20 021 Inactive hydralazine 10 mg tablet RxNorm: 096538 Take 1 Tablet(s) Oral QID 03/03/20 021 Inactive cephalexin 500 mg tablet RxNorm: 893862 Take 1 Tablet(s) Oral QID 02/27/20 021 Inactive cephalexin 500 mg tablet RxNorm: 046011 Take 1 Tablet(s) Oral QID 02/27/20 021 Inactive lisinopril 40 mg tablet RxNorm: 673593 Take 1 Tablet(s) Oral QD 02/11/20 21 023 Inactive Eliquis 5 mg tablet RxNorm: 9595194 Take 1 Tablet(s) Oral BID 01/05/20 21 025 Inactive Eliquis 5 mg tablet RxNorm: 0362571 Take 2 Tablet(s) Oral QD 01/01/20 21 021 Inactive Lyrica 50 mg capsule RxNorm: 919765 Take 1 Capsule(s) Oral QAM every morning 12/24/19 21 021 Inactive Lyrica 100 mg capsule RxNorm: 484103 Take 1 Capsule(s) Oral QHS every night at bedtime 12/24/19 21 021 Inactive clotrimazole 1 % topical cream RxNorm: 226820 Apply to right foot and toes Topical BID 12/04/19 21 023 Inactive metoprolol succinate ER 200 mg tablet,extended release 24 hr RxNorm: 758275 Take 1 Tablet(s) Oral QD 12/04/19 21 023 Inactive ciprofloxacin 500 mg tablet RxNorm: 152622 Take 1 Tablet(s) Oral QD 11/30/19 21 021 Inactive DX ofloxacin otic drops Accu-Chek Guide test strips RxNorm: USE 1 TO CHECK GLUCOSE 4 TIMES DAILY AND NEEDED 11/15/19 21 023 Inactive Blood Glucose Test strips RxNorm: Use 1 Test Strip QID at PRN 11/05/19 21 023 Inactive E11.42 lisinopril 30 mg tablet RxNorm: 552908 Take 1 Tablet(s) Oral QD 10/30/19 21 021 Inactive lisinopril 20 mg tablet RxNorm: 180352 Take 1 Tablet(s) Oral QD 10/23/19 21 021 Inactive lisinopril 20 mg tablet RxNorm: 902368 Take 1 Tablet(s) Oral QD 10/23/19 21 021 Inactive lisinopril 10 mg tablet RxNorm: 269372 Take 1 Tablet(s) Oral QD 10/02/19 21 021 Inactive icosapent ethyl 1 gram capsule RxNorm: 5777638 Take 2 Capsule(s) (2 gm) Oral BID with meals 09/12/19 21 024 Inactive Okay to dispense one 2gm tab if you have that available. icosapent ethyl 1 gram capsule RxNorm: 4181712 Take 2 Capsule(s) Oral BID 09/12/19 21 021 Inactive Okay to dispense one 2gm tab if you have that available. amlodipine 10 mg tablet RxNorm: 133615 Take 1 Tablet(s) Oral QD 09/04/19 21 021 Inactive aspirin 81 mg tablet,delayed release RxNorm: 772553 Take 1 Tablet(s) Oral QD 09/04/19 21 021 Inactive Levemir FlexTouch U-100 Insulin 100 unit/mL (3 mL) subcutaneous pen RxNorm: 754260 Inject 150 Unit(s) Subcutaneous BID 09/04/19 022 Inactive venlafaxine ER 150 mg tablet,extended release 24 hr RxNorm: 666768 Take 1 Tablet(s) Oral QD 09/04/19 021 Inactive clotrimazole-betame thasone 1 %-0.05 % topical cream RxNorm: 920683 Apply to rash on red area on left abdomen/chest Topical BID 08/10/19 021 Inactive amlodipine 5 mg tablet RxNorm: 356299 Take 1 Tablet(s) Oral QD 07/31/19 021 Inactive cephalexin 500 mg tablet RxNorm: 783274 Take 1 Tablet(s) Oral BID BID - Twice Daily 07/31/19 021 Inactive Start 08/01/20 pantoprazole 40 mg tablet,delayed release RxNorm: 732560 Take 1 Tablet(s) Oral QAM every morning 07/08/19 025 Inactive senna 8.6 mg tablet RxNorm: 705673 Take 1 Tablet(s) Oral QD 07/08/19 025 Inactive carbamazepine 200 mg tablet RxNorm: 839371 Take 1 Tablet(s) Oral BID 07/08/19 025 Inactive clopidogrel 75 mg tablet RxNorm: 207738 Take 1 Tablet(s) Oral QD 07/08/19 021 Inactive Blood Glucose Test strips RxNorm: Use 1 Test Strip QID at PRN 07/08/19 021 Inactive E11.42 Novolog Flexpen U-100 Insulin aspart 100 unit/mL (3 mL) subcutaneous RxNorm: 4678307 Administer per sliding scale Milliliter(s) Subcutaneous TID 151-200: 10 u; 201-250: 20 u; 251-300: 30 u; 301-350: 40 u; 351-400: 50 u. 07/08/19 21 022 Inactive lisinopril 5 mg tablet RxNorm: 718526 Take 1 Tablet(s) Oral QD 07/08/19 021 Inactive Novolog Flexpen U-100 Insulin aspart 100 unit/mL (3 mL) subcutaneous RxNorm: 7937912 Inject 85 Unit(s) Subcutaneous TID 07/08/19 022 Inactive pravastatin 80 mg tablet RxNorm: 282493 Take 1 Tablet(s) Oral QHS every night at bedtime 07/08/19 023 Inactive clotrimazole 1 % topical cream RxNorm: 300540 Apply to bilateral groin areas Topical BID 07/08/19 022 Inactive metoprolol succinate ER 200 mg tablet,extended release 24 hr RxNorm: 290272 Take 1 Tablet(s) Oral QD 07/08/19 21 021 Inactive Vitamin D3 25 mcg (1,000 unit) tablet RxNorm: 161596 Take 1 Tablet(s) Oral QD 07/08/19 021 Inactive isosorbide dinitrate 30 mg tablet RxNorm: 712342 Take 1 Tablet(s) Oral QD 07/08/19 021 Inactive Levemir FlexTouch U-100 Insulin 100 unit/mL (3 mL) subcutaneous pen RxNorm: 352575 Inject 140 Unit(s) Subcutaneous BID 07/08/19 021 Inactive torsemide 20 mg tablet RxNorm: 864706 Take 1 Tablet(s) Oral QD 07/08/19 023 Inactive venlafaxine 75 mg tablet RxNorm: 140556 Take 1 Tablet(s) Oral QD 07/08/19 021 Inactive acetaminophen 500 mg tablet RxNorm: 529693 Take 1 Tablet(s) Oral TID as needed for headache 06/18/19 021 Inactive acetaminophen 500 mg tablet RxNorm: 342254 Take 1 Tablet(s) Oral TID as needed for headache 06/18/19 021 Inactive Lyrica 100 mg capsule RxNorm: 608821 Take 1 Capsule(s) Oral QHS every night at bedtime 06/11/19 021 Inactive Lyrica 50 mg capsule RxNorm: 573769 Take 1 Capsule(s) Oral QAM every morning 06/10/19 21 021 Inactive hydrocortisone 2.5 % topical cream RxNorm: 971612 Apply to bilateral groin creases Topical BID 05/15/20 20 021 Inactive clotrimazole 1 % topical cream RxNorm: 250559 Apply to bilateral groin areas Topical BID 05/15/20 20 021 Inactive Lyrica 50 mg capsule RxNorm: 954133 Take 1 Capsule(s) Oral QAM every morning 05/14/20 20 020 Inactive Lyrica 100 mg capsule RxNorm: 783063 Take 1 Capsule(s) Oral QHS every night [...] Inactive Nystop 100,000 unit/gram topical powder RxNorm: 077896 Apply to abd folds, under breasts and L side of groin Topical BID x 14 days, then BID PRN 04/08/20 20 020 Inactive dx: yeast dermatitis Lyrica 100 mg capsule RxNorm: 794541 Take 1 Capsule(s) Oral QHS every night at bedtime 03/13/20 20 020 Inactive Lyrica 50 mg capsule RxNorm: 092994 Take 1 Capsule(s) Oral QAM every morning 03/13/20 20 020 Inactive ketoconazole 2 % shampoo RxNorm: 121117 Apply Topical two times a week with showers 03/11/20 20 024 Inactive cholecalciferol (vitamin D3) 50 mcg (2,000 unit) tablet RxNorm: 534795 Take 1 Tablet(s) Oral QD 03/11/20 021 Inactive Zetia 10 mg tablet RxNorm: 996484 Take 1 Tablet(s) Oral QD 03/07/20 021 Inactive Zetia 10 mg tablet RxNorm: 575400 Take 1 Tablet(s) Oral QD 03/07/20 Inactive Lyrica 50 mg capsule RxNorm: 386608 Take 1 Capsule(s) Oral QAM every morning 02/15/20 Inactive Lyrica 100 mg capsule RxNorm: 288180 Take 1 Capsule(s) Oral QHS every night at bedtime 02/15/20 Inactive Lyrica 100 mg capsule RxNorm: 189019 Take 1 Capsule(s) Oral QHS every night at bedtime 02/15/20 Inactive Lyrica 50 mg capsule RxNorm: 522954 Take 1 Capsule(s) Oral QAM every morning 02/15/20 Inactive metoprolol succinate ER 200 mg tablet,extended release 24 hr RxNorm: 061045 Take 1 Tablet(s) Oral QD 08/12/19 025 Inactive loperamide 2 mg capsule RxNorm: 188007 Take 1 Capsule(s) Oral QID as needed 09/06/19 025 Inactive hydralazine 50 mg tablet RxNorm: 706002 Take 1 Tablet(s) Oral QID 08/12/19 025 Inactive Soft Touch Lancets RxNorm: miscellaneous 03/04/20 24 025 Inactive venlafaxine ER 75 mg capsule,extended release 24 hr RxNorm: 094523 Take 3 Capsule(s) Oral QD 06/12/19 22 023 Inactive polyethylene glycol 3350 17 gram/dose oral powder RxNorm: 031584 Take 17=1 capful Gram(s) Oral BID as needed mix with 4-8oz of liquid 06/12/19 22 024 Inactive icosapent ethyl 1 gram capsule RxNorm: 2362863 Take 2 Capsule(s) (2 gm) Oral BID with meals 10/07/19 23 023 Inactive Okay to dispense one 2gm tab if you have that available. Levemir FlexTouch U-100 Insulin 100 unit/mL (3 mL) subcutaneous pen RxNorm: 362688 Inject 80 Unit(s) Subcutaneous BID 07/14/19 23 023 Inactive Novolog Flexpen U-100 Insulin aspart 100 unit/mL (3 mL) subcutaneous RxNorm: 6979247 Insert 30 Unit(s) Subcutaneous TID with meals [...] Encounter Performer Location Location Address Codes Date (03907) Home or Residence Visit Est Pt - [...] Diagnosis: Hemorrhoids[ICD10: K64.9] Diagnosis: Advance care planning[ICD10: Z71.89] Harrison Munson [facility] on [address] [address] CPT-4: 93430 05/08/2024 Plan of Care Planned Activity Notes Codes Status Date Referral: [facility] [address] [facility] [id number] [place] Referral Appointment Scheduled 10/20/2024 Referral: [facility]/Endocrinology WPtel: [address] [facility] 3 [id number] [place] Referral No Records Received 07/10/2024 Appointment: Brian Munson [place]: [id number] [place] AWV 02/08/2024 Appointment: Brian Munson WPtel: [address] [facility] 300 [id number] [place] F/U 01/11/2024 Appointment: Sandra Clark WPtel: [address] [facility] 300 [id number] [place] Telehealth Psych Follow Up 12/09 Appointment: Tapan Shirley WPtel: [address] [facility] 300 [id number] [place] TCM 10/26/2022 Referral: [facility] WPtel: [address], [address] [id number] Referral Records Received 09/21/2022 Appointment: Tapan Shirley WPtel: [address] [facility] 300 [id number] [place] F/U 08/11/2022 Appointment: Tapan Shirley WPtel: [address] [facility] 300 [id number] [place] F/U 07/14/2022 Appointment: Tapan Shirley WPtel: [address] [facility] 300 [id number] [place] F/U 02/10/2022 Referral: [facility] WPtel: [address] [id number] [place] Referral Completed 05/28/2021 Referral: General Cardiology [...] Sister Jyotsna involved in his care cell# [phone] Guardian: Giulia (tapan met in person 09/01/21), [...] MD at [facility]. Start Pioglitazone 15 mg QD. Stop Basaglar insulin. Increase Ozempic 2 mg once wkly. Continue Humalin R U-500 100 units with meals TID. FOLLOW UP 2 MONTHS. If BG >400 add 50 units to next scheduled dose of Humalin R U 500 insulin 06/12/2024 Hyperlipidemia associated wi th type 2 diabetes mellitus Will order Lipid panel today. Continue current medication regimen. Stage 2 chronic 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 Will order BMP today. Advance Care Planning Nursing going to discuss POLST with guardian and notify PCP if guardian would like to set up a phone call or be present at our next visit to complete the form. Hypertensive heart disease without heart failure Will order BMP today. BP at goal. Continue current medication regimen. Hypokalemia Will order BMP today. Continue current medication regimen. Type 2 diabetes mellitus with diabetic polyneuropathy, with long-term current use of insulin A1c reviewed from last Endocrinology appointment. (9.4%) Dr. Martines's office has discharged the patient unfortunately. See HPI for details. Will place new referral today. Continue with current medication regimen from last [employer] and will hopefully be able to establish with new specialist soon. . 05/08/2024
--- OUTSIDE RECORDS SUMMARY | 2024-10-19 19:20 | XMS_ITS | CCD ---
Author Organization Unknown Care Team Providers Care Swing Ride Operator Name Role Phone Harrison Durham Primary Care Provider Leona vailable Unavailable Chronic Care Management Unavaila ble Summary Purpose DataExchange Insurance Providers Payer name Policy type / Coverage type Covered alliance party ID Effective Begin Date Effective End Date [place] Part B [id number] Unknown Unknown [place] Medicare Part B [id number] Unknown Unknown Family history Sister Brittany Suggs Diagnosis Age At Onset No Family Disease Entered N/A Runs in the family Diagnosis Age At Onset No Known Diseases N/A Sister Blanka Mcduffie Diagnosis Age At Onset No Family Disease Entered N/A Social History Social History Element Codes Description Effec tive Dates Tobacco history SNOMED CT: 602521834 Never smoker 01/16 Sexually Active? Unknown No [...] Living arrangements Unknown Nursing Home 09/03/[address]: 410654909 No Alcohol Consum ption 09/02/2020 Allergies, Adverse Reactions, Alerts Substance Reaction Codes Entered Date Inactivated Date Status * NO KNOWN FOOD ALLERGIES Unknown 07/13/2023 No Inactive Date Active LISINOPRIL RxNorm: 42131 02/12/2020 No Inactive Da te Active Metformin [...] 09/07/2023 Resolved Coronary artery disease invo lving [place] coronary [...] Fill Instructions chlorthalidone 25 mg tablet RxNorm: 684761 Take 1 Tablet(s) Oral QAM every morning 04/06/20 No Stop Date Active pregabalin 150 mg capsule RxNorm: 756239 Take 1 Capsule(s) Oral QHS every night at bedtime 03/31/20 24 024 Inactive Vascepa 1 gram capsule RxNorm: 9846594 Take 2 Capsule(s) Oral BID 03/30/20 24 025 Active rosuvastatin 40 mg tablet RxNorm: 834535 1 TAB ORALLY EVERY EVENING (DX:CORONARY ARTERY DISEASE) 03/28/20 24 No Stop Date Active venlafaxine ER 75 mg capsule,extended release 24 hr RxNorm: 696422 3 CAPS (225MG) ORALLY DAILY (DX: MOOD DISORDER) 03/28/20 No Stop Date Active pregabalin 100 mg capsule RxNorm: 067685 Take 1 Capsule(s) Oral QAM every morning 03/20/20 24 024 Inactive cholecalciferol (vitamin D3) 1,250 mcg (50,000 unit) capsule RxNorm: 173611 Take 1 Capsule(s) Oral QW once a [...] Insulin 100 unit/mL (3 mL) subcutaneous RxNorm: 7965133 Inject 40 Unit(s) Subcutaneous BID 03/07/20 025 Inactive Please dispense one month supply. Humulin R U-500 (Concentrated) Insulin 500 unit/mL subcutaneous soln RxNorm: 272652 Inject 100 Unit(s) Subcutaneous AC before meals [...] PRN) to be use with new Accu [place] meter 03/04/20 Inactive ok to substitute with [...] Inactive nystatin 100,000 unit/gram topical powder RxNorm: 545193 Apply 1 Application Topical BID as needed abdominal/breast /groin folds 03/02/20 024 Inactive Accu-Chek Guide test strips RxNorm: [...] (Concentrated) Insulin 500 unit/mL subcutaneous soln RxNorm: 388667 Inject 100 Unit(s) Subcutaneous TID 02/17/20 24 024 Inactive Humulin R U-500 (Concentrated) Insulin 500 unit/mL subcutaneous soln RxNorm: 902682 Inject 100 Unit(s) Subcutaneous TID 02/10/20 24 024 Inactive Basaglar KwikPen U-100 Insulin 100 unit/mL (3 mL) subcutaneous RxNorm: 0338041 Inject 30 Unit(s) Subcutaneous BID 02/10/20 24 024 Inactive Please dispense one month supply. pregabalin 100 mg capsule RxNorm: 817932 Take 1 Capsule(s) Oral QAM every morning 02/07/20 24 024 Inactive isosorbide mononitrate ER 60 mg tablet,extended release 24 hr RxNorm: 847272 Take 1 Tablet(s) Oral QD 02/01/20 24 025 Active aripiprazole 15 mg tablet RxNorm: 749456 Take 1/2 Tablet(s) Oral QD 02/01/20 24 025 Active torsemide 20 mg tablet RxNorm: 829475 1 TAB ORALLY DAILY (DX: EDEMA) 01/27/20 24 No Stop Date Active potassium chloride ER 20 mEq tablet,extended release(part/cryst) RxNorm: 0640996 2 TABS (40MEQ) ORALLY TWICE DAILY (DX: HYPOKALEMIA) 01/27/20 24 025 Inactive cephalexin 500 mg capsule RxNorm: 718920 Take 1 Capsule(s) Oral QID 12/17/19 24 024 Inactive cephalexin 500 mg capsule RxNorm: 209309 Take 1 Capsule(s) Oral QID 12/17/19 24 024 Inactive acetaminophen 500 mg tablet RxNorm: 995012 (MAX APAP:4GM/24HR) Take 1 Tablet(s) Oral TID as needed for pain 12/10/19 24 Inactive torsemide 20 mg tablet RxNorm: 059203 Take 1 Tablet(s) Oral QD 10/26/19 24 Inactive potassium chloride ER 20 mEq tablet,extended release RxNorm: 645323 Take 2 Tablet(s) Oral BID 10/26/19 24 025 Inactive torsemide 20 mg tablet RxNorm: 382849 Take 1 Tablet(s) Oral QD 10/26/19 24 024 Inactive potassium chloride ER 20 mEq tablet,extended release RxNorm: 567492 Take 2 Tablet(s) Oral BID 10/26/19 24 024 Inactive Artificial Tears (PF) 0.1 %-0.3 % drops in a dropperette RxNorm: 495383 Apply 1-2 Drop(s) Both eyes BID as needed 09/28/19 24 025 Inactive erythromycin 5 mg/gram (0.5 %) eye ointment RxNorm: 649592 Apply 1 Application Both eyes QHS every night at bedtime Instill ~1 cm ribbon into affected eye 09/28/19 Inactive Artificial Tears (PF) 0.1 %-0.3 % drops in a dropperette RxNorm: 779284 Apply 1-2 Drop(s) Both eyes BID as needed 09/28/19 24 024 Inactive erythromycin 5 mg/gram (0.5 %) eye ointment RxNorm: 110926 Apply 1 Application Both eyes QHS every night at bedtime Instill ~1 cm ribbon into affected eye 09/28/19 24 024 Inactive acetaminophen 500 mg tablet RxNorm: 396792 (MAX APAP:4GM/24HR) Take 1 Tablet(s) Oral TID as needed for pain 09/24/19 24 024 Inactive carvedilol 25 mg tablet RxNorm: 754049 Take 1 Tablet(s) Oral QD 09/08/19 24 No Stop Date Active pregabalin 100 mg capsule RxNorm: 330845 Take 1 Capsule(s) Oral QAM every morning 09/07/19 24 024 Inactive ezetimibe 10 mg tablet RxNorm: 494095 Take 1 Tablet(s) Oral QD 07/13/19 24 025 Inactive bisacodyl 10 mg rectal suppository RxNorm: 340942 Insert 1 Suppository Rectal QD as needed 07/13/19 24 No Stop Date Active polyethylene glycol 3350 17 gram/dose oral powder RxNorm: 421151 Take 17 Gram(s) Oral BID as needed mix in 4-8ox water 07/13/19 24 025 Inactive ketoconazole 2 % shampoo RxNorm: 930196 Apply 1 Application Topical UD as directed 07/13/19 No Stop Date Active Ozempic 1 mg/dose (4 mg/3 mL) subcutaneous pen injector RxNorm: 5274569 Inject 1 Milligram(s) Subcutaneous QW once a week 07/13/19 24 No Stop Date Active Guaifenesin AC 10 mg-100 mg/5 mL oral liquid RxNorm: 175909 Take 10 Milliliter(s) Oral Q4H every four hours as needed 07/13/19 24 No Stop Date Active ammonium lactate 12 % topical cream RxNorm: 592601 Apply 1 Application Topical BID 07/13/19 24 025 Inactive hydrocortisone 2.5 % topical cream RxNorm: 181244 Apply 1 Application Topical BID as needed 07/13/19 24 No Stop Date Active rosuvastatin 20 mg sprinkle capsule RxNorm: 6203020 Take 1 Capsule(s) Oral QD 07/13/19 24 025 Inactive rosuvastatin 40 mg tablet RxNorm: 373128 Take 1 Tablet(s) Oral QPM every evening 07/13/19 24 024 Inactive aripiprazole 15 mg tablet RxNorm: 723209 Take 1/2 Tablet(s) Oral QD 07/13/19 24 024 Inactive isosorbide mononitrate ER 60 mg tablet,extended release 24 hr RxNorm: 473506 Take 1 Tablet(s) Oral QD 07/13/19 24 024 Inactive Vascepa 1 gram capsule RxNorm: 9519554 Take 2 Capsule(s) Oral BID 07/13/19 24 024 Inactive venlafaxine ER 75 mg capsule,extended release 24 hr RxNorm: 404367 Take 3 Capsule(s) Oral QD 07/13/19 24 024 Inactive Basaglar KwikPen U-100 Insulin 100 unit/mL (3 mL) subcutaneous RxNorm: 6657331 Inject 30U SubQ twice daily 07/07/19 24 024 Inactive Please dispense one month supply. Basaglar KwikPen U-100 Insulin 100 unit/mL (3 mL) subcutaneous RxNorm: 3815323 Inject 30U SubQ twice daily 07/07/19 24 024 Inactive Please dispense one month supply. pregabalin 150 mg capsule RxNorm: 414279 Take 1 Capsule(s) Oral QHS every night at bedtime 07/05/19 24 024 Inactive pregabalin 150 mg capsule RxNorm: 669560 Take 1 Capsule(s) Oral QHS every night at bedtime 07/05/19 24 024 Inactive polyethylene glycol 3350 17 gram/dose oral powder RxNorm: 772588 Take 1 Packet Oral QD as needed (1 packet = 17g) mix with 4-8oz of liquid 06/15/19 24 024 Inactive bisacodyl 10 mg rectal suppository RxNorm: 774353 Insert one suppository per rectum once daily as needed for constipation 06/15/19 24 024 Inactive bisacodyl 10 mg rectal suppository RxNorm: 428485 Insert one suppository per rectum once daily as needed for constipation 06/15/19 024 Inactive pregabalin 100 mg capsule RxNorm: 492436 Take 1 Capsule(s) Oral QAM every morning 04/27/20 024 Inactive Levemir FlexPen 100 unit/mL (3 mL) solution subcutaneous insulin pen RxNorm: 723082 Inject 30 Unit(s) Subcutaneous BID 04/27/20 024 Inactive rosuvastatin 40 mg tablet RxNorm: 940315 Take 1 Tablet(s) Oral QPM every evening 04/16/20 024 Inactive D/C rosuvastatin 20mg venlafaxine ER 75 mg capsule,extended release 24 hr RxNorm: 114099 Take 3 Capsule(s) Oral QD 04/14/20 023 Inactive pregabalin 100 mg capsule RxNorm: 124235 Take 1 Capsule(s) Oral QAM every morning [...] strip clotrimazole 1 % topical cream RxNorm: 632651 Take apply topically to abdominal folds twice daily for 14 days 03/12/20 024 Inactive Ozempic 1 mg/dose (4 mg/3 mL) subcutaneous pen injector RxNorm: 7845099 Inject 1 Milligram(s) Subcutaneous QW once a week 03/11/20 023 Inactive rosuvastatin 20 mg tablet RxNorm: 921087 Take 1 Tablet(s) Oral QD 02/26/20 023 Inactive d/c pravastatin 80mg Ozempic 1 mg/dose (4 mg/3 mL) subcutaneous pen injector RxNorm: 8120555 Inject 1 Milligram(s) Subcutaneous QW once a week 02/20/20 23 023 Inactive pregabalin 150 mg capsule RxNorm: 832924 Take 1 Capsule(s) Oral HS at bed time 02/19/20 23 023 Inactive pregabalin 100 mg capsule RxNorm: 389035 Take 1 Capsule(s) Oral QAM every morning 02/18/20 23 023 Inactive venlafaxine ER 75 mg capsule,extended release 24 hr RxNorm: 233942 Take 3 Capsule(s) Oral QD 02/04/20 23 023 Inactive FreeStyle Chema 2 Sensor kit RxNorm: use as directed 02/04/20 23 023 Inactive FreeStyle Chema 2 Sensor kit RxNorm: use as directed 02/04/20 024 Inactive fluconazole 150 mg tablet RxNorm: 282752 Take 1 Tablet(s) Oral on day 3 and on day 6 02/03/20 23 024 Inactive chlorthalidone 25 mg tablet RxNorm: 490891 Take 1 Tablet(s) Oral QAM every morning 02/03/20 23 024 Inactive venlafaxine ER 150 mg capsule,extended release 24 hr RxNorm: 496665 Take 1 Capsule(s) Oral QD 02/03/20 023 Inactive acetaminophen 500 mg tablet RxNorm: 855704 1 TABLET ORALLY 3 TIMES DAILY (MAX APAP:4GM/24HR) 12/15/19 23 023 Inactive clotrimazole 1 % topical cream RxNorm: 659928 apply 1g topically to top of feet and in between toes BID 12/09/19 23 025 Inactive potassium chloride ER 20 mEq tablet,extended release RxNorm: 388746 Take 1 Tablet(s) Oral BID 12/09/19 23 024 Inactive d/c 20mEq once daily (sent from hospital) nystatin 100,000 unit/gram topical powder RxNorm: 656816 APPLY TO AFFECTED AREAS TOPICALLY 2 TIMES DAILY 11/21/19 23 023 Inactive Nystop 100,000 unit/gram topical powder RxNorm: 130567 Apply to abd folds, under breasts and L side of groin Topical BID x 14 days, then BID PRN 11/20/19 023 Inactive dx: yeast dermatitis [place] Ultra Strength 4 %-30 %-10 % topical cream RxNorm: 092228 Apply 1 Gram(s) Topical QID PRN to feet and legs for neuropathic pain 11/11/19 23 024 Inactive clotrimazole 1 % topical cream RxNorm: 885549 Apply 1/2 Gram(s) Topical BID Apply to affected areas of groin, periarea, and abdominal topically 2 times daily 11/10/19 023 Inactive hydrocortisone 2.5 % topical cream RxNorm: 849182 Apply 1/2 Gram(s) Topical BID as needed 11/10/19 024 Inactive Levemir FlexPen 100 unit/mL (3 mL) solution subcutaneous insulin pen RxNorm: 604661 Inject 30 Unit(s) Subcutaneous BID 10/07/19 023 Inactive Humulin R U-500 (Concentrated) Insulin 500 unit/mL subcutaneous soln RxNorm: 869793 Inject 100 Unit(s) Subcutaneous TID 10/07/19 024 Inactive Ozempic 0.25 mg or 0.5 mg (2 mg/3 mL) subcutaneous pen injector RxNorm: 9093683 Inject 1/2 Milligram(s) Subcutaneous QW once a week 10/07/19 23 024 Inactive aripiprazole 15 mg tablet RxNorm: 000633 1/2 TAB (7.5MG) ORALLY DAILY (DX:MAJOR DEPRESSIVE DISORDER) 09/23/19 023 Inactive Accu-Chek Guide test strips RxNorm: Use 1 Test Strip QID 09/15/19 23 023 Inactive ok to substitute with any covered alternative test strip Lancets,Thin 28 gauge RxNorm: Use 1 as directed QID 09/15/19 23 023 Inactive torsemide 20 mg tablet RxNorm: 646167 Take 1 Tablet(s) Oral BID 09/09/19 23 024 Inactive d/c once daily dosing carvedilol 25 mg tablet RxNorm: 167174 Take 1 Tablet(s) Oral QD 08/25/19 23 024 Inactive pregabalin 150 mg capsule RxNorm: 754700 1 Capsule(s) Oral HS at bed time 08/18/19 23 023 Inactive pregabalin 100 mg capsule RxNorm: 010445 1 Capsule(s) Oral QAM every morning 08/18/19 23 023 Inactive carvedilol 25 mg tablet RxNorm: 231624 1 Tablet(s) Oral QD 07/28/19 23 023 Inactive lisinopril 20 mg tablet RxNorm: 606715 Give 1 Tablet(s) Oral QD 07/28/19 23 023 Inactive Lyrica 150 mg capsule RxNorm: 056075 Take 1 Capsule(s) Oral QHS every night at bedtime 07/19/19 023 Inactive d/c 100mg dose Diflucan 150 mg tablet RxNorm: 525640 Take 1 Tablet(s) Oral QD repeat on day 3 and 6 07/19/19 23 023 Inactive pregabalin 100 mg capsule RxNorm: 934231 Take 1 Capsule(s) Oral QAM every morning 07/19/19 023 Inactive gatifloxacin 0.5 % eye drops RxNorm: 700905 Instill 1 Drop(s) as directed TID Instill 1 drop in to affected eye(s) starting 1 day prior to surgery and continue until gone (do not exceed 4 weeks). 07/13/19 023 Inactive carvedilol 25 mg tablet RxNorm: 741974 2 Tablet(s) Oral BID 07/13/19 23 023 Inactive Humulin R Regular U-100 Insulin 100 unit/mL injection solution RxNorm: 326303 85 Unit(s) Injection TID 07/13/19 23 023 Inactive ketorolac 0.5 % eye drops RxNorm: 527079 Instill 1 Drop(s) as directed QID Instill 1 drop into affected eye(s) 4 times daily starting 1 day prior to surgery and continue until gone (do not exceed 4 weeks). 07/13/19 23 023 Inactive Diflucan 150 mg tablet RxNorm: 336115 Take 1 Tablet(s) Oral QD repeat on day 3 and 6 06/30/19 023 Inactive Accu-Chek Guide test strips RxNorm: Use 1 Test Strip QID Use 1 test strip to monitor blood glucose 4 times daily and as needed. Dx:E11.42. 06/23/19 023 Inactive ok to substitute with any covered alternative test strip dextromethorphan-gu aifenesin 10 mg-100 mg/5 mL oral liquid RxNorm: 127220 Take 10 Milliliter(s) Oral every 4 hours as needed for cough 06/19/19 023 Inactive dextromethorphan-gu aifenesin 10 mg-100 mg/5 mL oral liquid RxNorm: 197675 Take 10 Milliliter(s) Oral every 4 hours as needed for cough 06/19/19 023 Inactive Lyrica 150 mg capsule RxNorm: 853672 Take 1 Capsule(s) Oral QHS every night at bedtime 06/18/19 023 Inactive d/c 100mg dose aripiprazole 15 mg tablet RxNorm: 661832 1/2 TAB (7.5MG) ORALLY DAILY (DX:MAJOR DEPRESSIVE DISORDER) 06/05/19 023 Inactive pregabalin 100 mg capsule RxNorm: 994333 1 Capsule(s) Oral QAM every morning 06/02/19 23 023 Inactive Banophen 50 mg capsule RxNorm: 6847976 Take 1 Capsule(s) Oral Q6H every 6 hours as needed 05/19/19 23 No Stop Date Active Novolog Flexpen U-100 Insulin aspart 100 unit/mL (3 mL) subcutaneous RxNorm: 4383603 Inject 10 Unit(s) Subcutaneous QHS every night at bedtime with nighttime snack 04/08/20 22 022 Inactive Novolog Flexpen U-100 Insulin aspart 100 unit/mL (3 mL) subcutaneous RxNorm: 2621364 Inject 42 Unit(s) Subcutaneous TID in addition to sliding scale 04/08/20 22 022 Inactive d/c 36u albuterol sulfate HFA 90 mcg/actuation aerosol inhaler RxNorm: 7333351 Take 2 Puff(s) Inhalation Q4H every four hours as needed as needed for SOB, cough, or wheezing 04/07/20 030 Active Banophen 50 mg capsule RxNorm: 0513403 Take 1 Capsule(s) Oral Q6H every 6 hours as needed 04/06/20 023 Inactive diphenhydramine 50 mg tablet RxNorm: 9449261 Take 1 Tablet(s) Oral Q6H every 6 hours as needed 04/06/20 022 Inactive diphenhydramine 50 mg tablet RxNorm: 0710093 1 Tablet(s) Oral Q6H every 6 hours as needed 04/06/20 022 Inactive Abilify 15 mg tablet RxNorm: 738273 1/2 Tablet(s) Oral QD 03/10/20 023 Inactive Shingrix (PF) 50 mcg/0.5 mL intramuscular suspension, kit RxNorm: 0198299 Administer 1/2 Milliliter(s) Intramuscular QD one time shingrix step 2 ( step 1 given 11/04/21) WITH needle - Nursing please administer upon arrival and once administered post a bridge message with date of administration, caustics loader, expiration date, and lot# so we can update [facility] 02/18/20 22 022 Inactive dispense with needle Shingrix (PF) 50 mcg/0.5 mL intramuscular suspension, kit RxNorm: 5019255 Administer 1/2 Milliliter(s) Intramuscular QD one time shingrix step 2 ( step 1 given 11/04/21) WITH needle - Nursing please administer upon arrival and once administered post a bridge message with date of administration, caustics loader, expiration date, and lot# so we can update [facility] 02/18/20 22 022 Inactive dispense with needle polyethylene glycol 3350 17 gram/dose oral powder RxNorm: 088279 Take 17=1 capful Gram(s) Oral QD mix with 4-8oz of liquid 01/08/20 22 025 Inactive take this in addition to BID prn order Lyrica 100 mg capsule RxNorm: 471724 Take 1 Capsule(s) Oral QAM every morning 01/08/20 22 022 Inactive d/c 50mg dose acetaminophen 500 mg tablet RxNorm: 430280 Take 1 Tablet(s) Oral TID 01/08/20 22 022 Inactive d/c PRN order Lyrica 150 mg capsule RxNorm: 351899 Take 1 Capsule(s) Oral QHS every night at bedtime 01/08/20 22 023 Inactive d/c 100mg dose Abilify 5 mg tablet RxNorm: 309103 Take 1 Tablet(s) Oral QD take 1 tab po QD #30 refill 5 dx: MDD 12/12/19 22 022 Inactive Abilify 5 mg tablet RxNorm: 560506 Take 1 Tablet(s) Oral QD take 1 tab po QD #30 refill 5 dx: MDD 12/12/19 22 022 Inactive Novolog Flexpen U-100 Insulin aspart 100 unit/mL (3 mL) subcutaneous RxNorm: 6302636 Inject 42 Unit(s) Subcutaneous TID in addition to sliding scale 12/10/19 22 022 Inactive d/c 36u chlorthalidone 25 mg tablet RxNorm: 986521 Take 1 Tablet(s) Oral QAM every morning 12/10/19 22 023 Inactive pregabalin 50 mg capsule RxNorm: 061681 Take 1 Capsule(s) Oral QAM every morning 11/12/19 22 022 Inactive tetanus-diphtheria toxoids-Td 2 Lf unit-2 Lf unit/0.5 mL IM suspension RxNorm: 139 Take 0.5 Miscellaneous Intramuscular 11/12/19 22 022 Inactive need tdap - nursing to administer upon arrival pregabalin 50 mg capsule RxNorm: 627759 Take 1 Capsule(s) Oral QAM every morning 10/16/19 22 022 Inactive pregabalin 50 mg capsule RxNorm: 264981 Take 1 Capsule(s) Oral QAM every morning 10/16/19 22 022 Inactive pregabalin 50 mg capsule RxNorm: 070821 1 Capsule(s) Oral QAM every morning 10/15/19 22 022 Inactive Shingrix (PF) 50 mcg/0.5 mL intramuscular suspension, kit RxNorm: 0229989 Administer 1/2 Milliliter(s) Intramuscular one time Nursing please administer upon arrival and once administered post a bridge message with date of administration, caustics loader, expiration date, and lot# so we can update [facility]. 10/09/19 22 022 Inactive shingrix step 1 Shingrix (PF) 50 mcg/0.5 mL intramuscular suspension, kit RxNorm: 8749724 Administer 1/2 Milliliter(s) Intramuscular one time Nursing please administer upon arrival and once administered post a bridge message with date of administration, caustics loader, expiration date, and lot# so we can [...] aspart 100 unit/mL (3 mL) subcutaneous RxNorm: 3769194 Inject 10 Unit(s) Subcutaneous QHS every night at bedtime with nighttime snack 10/08/19 22 Inactive Shingrix (PF) 50 mcg/0.5 mL intramuscular suspension, kit RxNorm: 7933370 ADMINISTER 2-DOSE SERIES PER CDC GUIDELINES 10/08/19 22 Active Shingrix (PF) 50 mcg/0.5 mL intramuscular suspension, kit RxNorm: 7772692 ADMINISTER 2-DOSE SERIES PER CDC GUIDELINES 10/08/19 22 Inactive Novolog Flexpen U-100 Insulin aspart 100 unit/mL (3 mL) subcutaneous RxNorm: 6472649 Inject 36 Unit(s) Subcutaneous TID in addition to sliding scale 10/08/19 22 Inactive cholecalciferol (vitamin D3) 1,250 mcg (50,000 unit) capsule RxNorm: 002325 Take 1 Capsule(s) Oral QW once a week 10/08/19 024 Inactive Novofine Autocover 30 gauge x 1/3 needle RxNorm: Use 1 Miscellaneous UD as directed Use 1 needle as directed to administer insulin 5 times a day Dx:E11.42. 10/03/19 022 Inactive ok to substitute with any covered alternative pen needle benzoyl peroxide 10 % topical cleanser RxNorm: 750837 Apply 1 Application Topical QD apply to face, wash rinse and dry once daily (may change to QOD if drying) 08/19/19 022 Inactive (%covered by insurance) #60ml refill 11 dx: acne benzoyl peroxide 10 % topical cleanser RxNorm: 263166 Apply 1 Application Topical QD apply to face, wash rinse and dry once daily (may change to QOD if drying) 08/19/19 022 Inactive (%covered by insurance) #60ml refill 11 dx: acne benzoyl peroxide 10 % topical cleanser RxNorm: 418266 Apply 1 Application Topical QD apply to face, wash rinse and dry once daily (may change to QOD if drying) 08/19/19 022 Inactive (%covered by insurance) #60ml refill 11 dx: acne Lyrica 50 mg capsule RxNorm: 685611 Take 1 Capsule(s) Oral QAM every morning Take 1 capsule by mouth once daily 08/19/19 022 Inactive benzoyl peroxide 10 % topical cleanser RxNorm: 723403 Apply 1 Application Topical QD apply to face, wash rinse and dry once daily (may change to QOD if drying) 08/19/19 022 Inactive (%covered by insurance) #60ml refill 11 dx: acne Lyrica 100 mg capsule RxNorm: 992790 Take 1 Capsule(s) Oral QHS every night at bedtime Take 1 capsule by mouth once daily at bedtime 08/19/19 22 022 Inactive Lyrica 100 mg capsule RxNorm: 201422 Take 1 Capsule(s) Oral QHS every night at bedtime Take 1 capsule by mouth once daily at bedtime 08/16/19 22 022 Inactive Lyrica 50 mg capsule RxNorm: 831008 Take 1 Capsule(s) Oral QAM every morning Take 1 capsule by mouth once daily 08/16/19 22 022 Inactive Levemir FlexTouch U-100 Insulin 100 unit/mL (3 mL) subcutaneous pen RxNorm: 188919 Inject 86 Unit(s) Subcutaneous BID 08/05/19 22 022 Inactive d/c 83units BID Lyrica 100 mg capsule RxNorm: 708200 Take 1 Capsule(s) Oral QHS every night at bedtime Take 1 capsule by mouth once daily at bedtime 07/14/19 22 022 Inactive Lyrica 50 mg capsule RxNorm: 434915 Take 1 Capsule(s) Oral QAM every morning Take 1 capsule by mouth once daily 07/14/19 22 022 Inactive Levemir FlexTouch U-100 Insulin 100 unit/mL (3 mL) subcutaneous pen RxNorm: 825439 Inject 83 Unit(s) Subcutaneous BID 07/08/19 22 [...] test strip hydralazine 50 mg tablet RxNorm: 071986 Take 1 Tablet(s) Oral QID 05/05/20 21 022 Inactive venlafaxine ER 225 mg tablet,extended release 24 hr RxNorm: 860061 Take 1 Tablet(s) Oral QD 05/05/20 21 021 Inactive venlafaxine ER 225 mg tablet,extended release 24 hr RxNorm: 040197 Take 1 Tablet(s) Oral QD 05/05/20 022 Inactive isosorbide mononitrate ER 30 mg tablet,extended release 24 hr RxNorm: 366857 Take 1 Tablet(s) Oral QD 05/05/20 024 Inactive hydralazine 50 mg tablet RxNorm: 467453 Take 1 Tablet(s) Oral QID 05/05/20 21 Inactive aspirin 81 mg tablet,delayed release RxNorm: 283501 Take 1 Tablet(s) Oral QD 03/31/20 022 Inactive Vitamin D2 1,250 mcg (50,000 unit) capsule RxNorm: 3440590 Take 1 Capsule(s) Oral QW once a week x 12 weeks 03/31/20 022 Inactive Vitamin D2 1,250 mcg (50,000 unit) capsule RxNorm: 6958248 Take 1 Capsule(s) Oral QW once a week 03/31/20 021 Inactive Zetia 10 mg tablet RxNorm: 034875 Take 1 Tablet(s) Oral QD 03/31/20 21 024 Inactive Zetia 10 mg tablet RxNorm: 637680 Take 1 Tablet(s) Oral QD 03/31/20 21 021 Inactive hydralazine 25 mg tablet RxNorm: 503699 Take 1 Tablet(s) Oral QID 03/31/20 021 Inactive hydralazine 25 mg tablet RxNorm: 288038 Take 1 Tablet(s) Oral QID 03/31/20 021 Inactive hydralazine 10 mg tablet RxNorm: 728337 Take 1 Tablet(s) Oral QID 03/03/20 021 Inactive cephalexin 500 mg tablet RxNorm: 036220 Take 1 Tablet(s) Oral QID 02/27/20 021 Inactive cephalexin 500 mg tablet RxNorm: 639069 Take 1 Tablet(s) Oral QID 02/27/20 021 Inactive lisinopril 40 mg tablet RxNorm: 606976 Take 1 Tablet(s) Oral QD 02/11/20 023 Inactive Eliquis 5 mg tablet RxNorm: 7420092 Take 1 Tablet(s) Oral BID 01/05/20 21 025 Inactive Eliquis 5 mg tablet RxNorm: 5271770 Take 2 Tablet(s) Oral QD 01/01/20 21 021 Inactive Lyrica 50 mg capsule RxNorm: 450305 Take 1 Capsule(s) Oral QAM every morning 12/24/19 21 021 Inactive Lyrica 100 mg capsule RxNorm: 836751 Take 1 Capsule(s) Oral QHS every night at bedtime 12/24/19 021 Inactive clotrimazole 1 % topical cream RxNorm: 241297 Apply to right foot and toes Topical BID 12/04/19 21 023 Inactive metoprolol succinate ER 200 mg tablet,extended release 24 hr RxNorm: 534929 Take 1 Tablet(s) Oral QD 12/04/19 21 023 Inactive ciprofloxacin 500 mg tablet RxNorm: 026407 Take 1 Tablet(s) Oral QD 11/30/19 21 021 Inactive DX ofloxacin otic drops Accu-Chek Guide test strips RxNorm: USE 1 TO CHECK GLUCOSE 4 TIMES DAILY AND NEEDED 11/15/19 21 023 Inactive Blood Glucose Test strips RxNorm: Use 1 Test Strip QID at PRN 11/05/19 21 023 Inactive E11.42 lisinopril 30 mg tablet RxNorm: 263878 Take 1 Tablet(s) Oral QD 10/30/19 21 021 Inactive lisinopril 20 mg tablet RxNorm: 737889 Take 1 Tablet(s) Oral QD 10/23/19 21 021 Inactive lisinopril 20 mg tablet RxNorm: 455755 Take 1 Tablet(s) Oral QD 10/23/19 21 021 Inactive lisinopril 10 mg tablet RxNorm: 195435 Take 1 Tablet(s) Oral QD 10/02/19 021 Inactive icosapent ethyl 1 gram capsule RxNorm: 2346624 Take 2 Capsule(s) (2 gm) Oral BID with meals 09/12/19 21 024 Inactive Okay to dispense one 2gm tab if you have that available. icosapent ethyl 1 gram capsule RxNorm: 3583265 Take 2 Capsule(s) Oral BID 09/12/19 21 021 Inactive Okay to dispense one 2gm tab if you have that available. amlodipine 10 mg tablet RxNorm: 973677 Take 1 Tablet(s) Oral QD 09/04/19 21 021 Inactive aspirin 81 mg tablet,delayed release RxNorm: 537175 Take 1 Tablet(s) Oral QD 09/04/19 21 021 Inactive Levemir FlexTouch U-100 Insulin 100 unit/mL (3 mL) subcutaneous pen RxNorm: 792936 Inject 150 Unit(s) Subcutaneous BID 09/04/19 21 022 Inactive venlafaxine ER 150 mg tablet,extended release 24 hr RxNorm: 654052 Take 1 Tablet(s) Oral QD 09/04/19 21 021 Inactive clotrimazole-betame thasone 1 %-0.05 % topical cream RxNorm: 451391 Apply to rash on red area on left abdomen/chest Topical BID 08/10/19 21 021 Inactive amlodipine 5 mg tablet RxNorm: 559525 Take 1 Tablet(s) Oral QD 07/31/19 21 021 Inactive cephalexin 500 mg tablet RxNorm: 050879 Take 1 Tablet(s) Oral BID BID - Twice Daily 07/31/19 21 021 Inactive Start 08/01/20 pantoprazole 40 mg tablet,delayed release RxNorm: 732096 Take 1 Tablet(s) Oral QAM every morning 07/08/19 025 Inactive senna 8.6 mg tablet RxNorm: 738256 Take 1 Tablet(s) Oral QD 07/08/19 025 Inactive carbamazepine 200 mg tablet RxNorm: 689857 Take 1 Tablet(s) Oral BID 07/08/19 025 Inactive clopidogrel 75 mg tablet RxNorm: 092758 Take 1 Tablet(s) Oral QD 07/08/19 021 Inactive Blood Glucose Test strips RxNorm: Use 1 Test Strip QID at PRN 07/08/19 021 Inactive E11.42 Novolog Flexpen U-100 Insulin aspart 100 unit/mL (3 mL) subcutaneous RxNorm: 5061494 Administer per sliding scale Milliliter(s) Subcutaneous TID 151-200: 10 u; 201-250: 20 u; 251-300: 30 u; 301-350: 40 u; 351-400: 50 u. 07/08/19 21 022 Inactive lisinopril 5 mg tablet RxNorm: 045737 Take 1 Tablet(s) Oral QD 07/08/19 021 Inactive Novolog Flexpen U-100 Insulin aspart 100 unit/mL (3 mL) subcutaneous RxNorm: 1880348 Inject 85 Unit(s) Subcutaneous TID 07/08/19 022 Inactive pravastatin 80 mg tablet RxNorm: 857180 Take 1 Tablet(s) Oral QHS every night at bedtime 07/08/19 023 Inactive clotrimazole 1 % topical cream RxNorm: 534029 Apply to bilateral groin areas Topical BID 07/08/19 21 022 Inactive metoprolol succinate ER 200 mg tablet,extended release 24 hr RxNorm: 451453 Take 1 Tablet(s) Oral QD 07/08/19 21 021 Inactive Vitamin D3 25 mcg (1,000 unit) tablet RxNorm: 978282 Take 1 Tablet(s) Oral QD 07/08/19 021 Inactive isosorbide dinitrate 30 mg tablet RxNorm: 130147 Take 1 Tablet(s) Oral QD 07/08/19 021 Inactive Levemir FlexTouch U-100 Insulin 100 unit/mL (3 mL) subcutaneous pen RxNorm: 386370 Inject 140 Unit(s) Subcutaneous BID 07/08/19 021 Inactive torsemide 20 mg tablet RxNorm: 906588 Take 1 Tablet(s) Oral QD 07/08/19 023 Inactive venlafaxine 75 mg tablet RxNorm: 457826 Take 1 Tablet(s) Oral QD 07/08/19 021 Inactive acetaminophen 500 mg tablet RxNorm: 483021 Take 1 Tablet(s) Oral TID as needed for headache 06/18/19 21 021 Inactive acetaminophen 500 mg tablet RxNorm: 382073 Take 1 Tablet(s) Oral TID as needed for headache 06/18/19 21 021 Inactive Lyrica 100 mg capsule RxNorm: 813137 Take 1 Capsule(s) Oral QHS every night at bedtime 06/11/19 021 Inactive Lyrica 50 mg capsule RxNorm: 276168 Take 1 Capsule(s) Oral QAM every morning 06/10/19 21 021 Inactive hydrocortisone 2.5 % topical cream RxNorm: 552117 Apply to bilateral groin creases Topical BID 05/15/20 20 021 Inactive clotrimazole 1 % topical cream RxNorm: 456342 Apply to bilateral groin areas Topical BID 05/15/20 20 021 Inactive Lyrica 50 mg capsule RxNorm: 506884 Take 1 Capsule(s) Oral QAM every morning 05/14/20 20 020 Inactive Lyrica 100 mg capsule RxNorm: 035116 Take 1 Capsule(s) Oral QHS every night [...] Inactive Nystop 100,000 unit/gram topical powder RxNorm: 088306 Apply to abd folds, under breasts and L side of groin Topical BID x 14 days, then BID PRN 04/08/20 20 020 Inactive dx: yeast dermatitis Lyrica 100 mg capsule RxNorm: 413751 Take 1 Capsule(s) Oral QHS every night at bedtime 03/13/20 20 Inactive Lyrica 50 mg capsule RxNorm: 135148 Take 1 Capsule(s) Oral QAM every morning 03/13/20 20 Inactive ketoconazole 2 % shampoo RxNorm: 332881 Apply Topical two times a week with showers 03/11/20 20 024 Inactive cholecalciferol (vitamin D3) 50 mcg (2,000 unit) tablet RxNorm: 046748 Take 1 Tablet(s) Oral QD 03/11/20 20 021 Inactive Zetia 10 mg tablet RxNorm: 520386 Take 1 Tablet(s) Oral QD 03/07/20 20 021 Inactive Zetia 10 mg tablet RxNorm: 163811 Take 1 Tablet(s) Oral QD 03/07/20 20 020 Inactive Lyrica 50 mg capsule RxNorm: 009963 Take 1 Capsule(s) Oral QAM every morning 02/15/20 20 020 Inactive Lyrica 100 mg capsule RxNorm: 597254 Take 1 Capsule(s) Oral QHS every night at bedtime 02/15/20 20 Inactive Lyrica 100 mg capsule RxNorm: 492161 Take 1 Capsule(s) Oral QHS every night at bedtime 02/15/20 20 020 Inactive Lyrica 50 mg capsule RxNorm: 904895 Take 1 Capsule(s) Oral QAM every morning 02/15/20 020 Inactive metoprolol succinate ER 200 mg tablet,extended release 24 hr RxNorm: 517329 Take 1 Tablet(s) Oral QD 08/12/19 23 025 Inactive loperamide 2 mg capsule RxNorm: 662054 Take 1 Capsule(s) Oral QID as needed 09/06/19 25 025 Inactive hydralazine 50 mg tablet RxNorm: 375100 Take 1 Tablet(s) Oral QID 08/12/19 025 Inactive Soft Touch Lancets RxNorm: miscellaneous 03/04/20 24 025 Inactive venlafaxine ER 75 mg capsule,extended release 24 hr RxNorm: 277418 Take 3 Capsule(s) Oral QD 06/12/19 22 023 Inactive polyethylene glycol 3350 17 gram/dose oral powder RxNorm: 360300 Take 17=1 capful Gram(s) Oral BID as needed mix with 4-8oz of liquid 06/12/19 22 024 Inactive icosapent ethyl 1 gram capsule RxNorm: 1267357 Take 2 Capsule(s) (2 gm) Oral BID with meals 10/07/19 23 023 Inactive Okay to dispense one 2gm tab if you have that available. Levemir FlexTouch U-100 Insulin 100 unit/mL (3 mL) subcutaneous pen RxNorm: 842696 Inject 80 Unit(s) Subcutaneous BID 07/14/19 23 023 Inactive Novolog Flexpen U-100 Insulin aspart 100 unit/mL (3 mL) subcutaneous RxNorm: 1283699 Insert 30 Unit(s) Subcutaneous TID with meals [...] [facility] [address] [id number] Referral Appointment Scheduled 10/20/2024 Referral: [facility]/Endocrinology WPtel: [address] [facility] [address] [id number] [place] Referral No Records Received 07/10/2024 Referral: [facility] WPtel: [phone] [id number] [place] Referral Records Received 09/21/2022 Referral: [facility] WPtel: [phone] [id number] [place] Referral Completed 05/28/2021 Referral: General Cardiology [...] Sister Jyotsna involved in his care cell# [phone] Guardian: Giulia (tapan met in person 09/01/21), [...] appointment 05.26.2024 with Jessa Webster MD at [facility] Special[facility]. Start Pioglitazone 15 mg QD. Stop Basaglar insulin. Increase Ozempic 2 mg once wkly. Continue Humalin R U-500 100 units with meals TID. FOLLOW UP 2 MONTHS. If BG >400 add 50 units to next scheduled dose of Humalin R U 500 insulin 06/12/2024
--- OUTSIDE RECORDS SUMMARY | 2024-10-19 19:20 | XMS_ITS | CCD ---
Author Name Cecilio Durham Address [address] [facility] [address] [place] [address] Phone Organization [facility] Phone Care Team Providers Care Director Of Food And Beverage Services Name Role Phone Harrison Durham Primary Care Provider Leona vailable Unavailable Chronic Care Management Unavaila ble Summary Purpose DataExchange Insurance Providers Payer name Policy type / Coverage type Covered alliance party ID Effective Begin Date Effective End Date Medicare [place] Part B [id number] Unknown Unknown [place] B [id number] Unknown Unknown Family history Sister Brittany Suggs [...] on file 07/11/[address]: 033160776 Never smoker 01/16 Sexually Active? Unknown No [...] Unknown [facility] 09/03/[address]: 893000788 No Alcohol Consum ption 09/02/2020 Allergies, Adverse Reactions, Alerts Substance Reaction Codes Entered Date Inactivated Date Status * NO KNOWN FOOD ALLERGIES Unknown 07/13/2023 No Inactive Date Active LISINOPRIL RxNorm: 05746 02/12/2020 No Inactive Da te Active Metformin HCl Unknown 02/12/2020 No Inactive Cristiano e Active * NO KNOWN ENVIRONMENTAL ALLERGIES Unknown 07/13/2023 No Inactive Date Active Problems Condition Codes Effective Dates Condition St atus Body mass index [BMI] 60.0-69.9, adult SNOMED CT: 387108014 ICD-10: Z68.44 ICD-9: V85.44 08/08/2024 Active 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 PRIOR RX HAS BEEN EXHAUSTED. THANK YOU. pregabalin 150 mg capsule RxNorm: 560148 1 CAPSULE BY MOUTH AT BEDTIME (DX: NEUROPATHY) 08/21/19 25 025 Active FACILITY IS REQUESTING A REFILL OF THIS MEDICATION, THANK YOU! senna 8.6 mg tablet RxNorm: 416139 Take 1 Tablet(s) Oral QD as needed for constipation on day 2 of no bowel movement 08/09/19 25 025 Inactive Miralax 17 gram/dose oral powder RxNorm: 249710 Administer 17 Gram(s) Oral QD as needed for constipation on day 3 of no bowel movement 08/09/19 25 025 Inactive senna 8.6 mg tablet RxNorm: 747993 Take 1 Tablet(s) Oral QD as needed for constipation on day 2 of no bowel movement 08/09/19 25 025 Inactive Miralax 17 gram/dose oral powder RxNorm: 106167 Administer 17 Gram(s) Oral QD as needed for constipation on day 3 of no bowel movement 08/09/19 025 Inactive pregabalin 100 mg capsule RxNorm: 834928 Take 1 Capsule(s) Oral QAM every morning [...] (Concentrated) Insulin 500 unit/mL subcutaneous soln RxNorm: 130335 Inject 100 Unit(s) Subcutaneous AC before meals Three times daily before meals. 07/24/19 25 025 Inactive ammonium lactate 12 % topical cream RxNorm: 191347 Apply 1 Application Topical BID 07/20/19 No Stop Date Active ezetimibe 10 mg tablet RxNorm: 060054 Take 1 Tablet(s) Oral QD 07/18/19 No Stop Date Active senna 8.6 mg tablet RxNorm: 159005 Take 1 Tablet(s) Oral QD 07/18/19 25 025 Inactive metoprolol succinate ER 200 mg tablet,extended release 24 hr RxNorm: 322736 Take 1 Tablet(s) Oral QD 06/19/19 No Stop Date Active pantoprazole 40 mg tablet,delayed release RxNorm: 511951 Take 1 Tablet(s) Oral QAM every morning 06/19/19 25 No Stop Date Active hydralazine 50 mg tablet RxNorm: 607018 Take 1 Tablet(s) Oral QID 06/19/19 25 No Stop Date Active carbamazepine 200 mg tablet RxNorm: 954736 Take 1 Tablet(s) Oral BID 06/19/19 25 No Stop Date Active amlodipine 10 mg tablet RxNorm: 851933 Take 1 Tablet(s) Oral QD 06/19/19 25 No Stop Date Active Eliquis 5 mg tablet RxNorm: 5175711 Take 1 Tablet(s) Oral BID 06/19/19 25 No Stop Date Active pen needle, diabetic 30 gauge x 3/16 RxNorm: Use 1 6 times per day w/insulin 06/14/19 25 026 Active pen needle, diabetic 30 gauge x 3/16 RxNorm: Use 1 needle 6 times per day w/insulin 06/14/19 25 025 Inactive nystatin 100,000 unit/gram topical powder RxNorm: 980889 Apply 1 Application Topical BID as needed abdominal/breast /groin folds 05/24/19 25 026 Active pregabalin 100 mg capsule RxNorm: 266758 Take 1 Capsule(s) Oral QAM every morning 05/22/19 25 025 Inactive nystatin 100,000 unit/gram topical powder RxNorm: 664966 Apply 1 Application Topical BID as needed abdominal/breast /groin folds 04/11/20 24 024 Inactive chlorthalidone 25 mg tablet RxNorm: 501062 Take 1 Tablet(s) Oral QAM every morning 04/06/20 24 No Stop Date Active pregabalin 150 mg capsule RxNorm: 170726 Take 1 Capsule(s) Oral QHS every night at bedtime 03/31/20 24 024 Inactive Vascepa 1 gram capsule RxNorm: 8113995 Take 2 Capsule(s) Oral BID 03/30/20 24 025 Active rosuvastatin 40 mg tablet RxNorm: 148666 1 TAB ORALLY EVERY EVENING (DX:CORONARY ARTERY DISEASE) 03/28/20 24 No Stop Date Active venlafaxine ER 75 mg capsule,extended release 24 hr RxNorm: 391290 3 CAPS (225MG) ORALLY DAILY (DX: MOOD DISORDER) 03/28/20 No Stop Date Active pregabalin 100 mg capsule RxNorm: 389883 Take 1 Capsule(s) Oral QAM every morning 03/20/20 Inactive cholecalciferol (vitamin D3) 1,250 mcg (50,000 unit) capsule RxNorm: 531639 Take 1 Capsule(s) Oral QW once a [...] Insulin 100 unit/mL (3 mL) subcutaneous RxNorm: 6027478 Inject 40 Unit(s) Subcutaneous BID 03/07/20 025 Inactive Please dispense one month supply. Humulin R U-500 (Concentrated) Insulin 500 unit/mL subcutaneous soln RxNorm: 402005 Inject 100 Unit(s) Subcutaneous AC before meals [...] Inactive nystatin 100,000 unit/gram topical powder RxNorm: 649535 Apply 1 Application Topical BID as needed [...] (Concentrated) Insulin 500 unit/mL subcutaneous soln RxNorm: 709002 Inject 100 Unit(s) Subcutaneous TID 02/17/20 24 024 Inactive Humulin R U-500 (Concentrated) Insulin 500 unit/mL subcutaneous soln RxNorm: 392833 Inject 100 Unit(s) Subcutaneous TID 02/10/20 24 024 Inactive Basaglar KwikPen U-100 Insulin 100 unit/mL (3 mL) subcutaneous RxNorm: 1357582 Inject 30 Unit(s) Subcutaneous BID 02/10/20 24 024 Inactive Please dispense one month supply. pregabalin 100 mg capsule RxNorm: 512490 Take 1 Capsule(s) Oral QAM every morning 02/07/20 24 09/23/2 024 Inactive isosorbide mononitrate ER 60 mg tablet,extended release 24 hr RxNorm: 420402 Take 1 Tablet(s) Oral QD 02/01/20 24 025 Active aripiprazole 15 mg tablet RxNorm: 079915 Take 1/2 Tablet(s) Oral QD 02/01/20 24 025 Active torsemide 20 mg tablet RxNorm: 947903 1 TAB ORALLY DAILY (DX: EDEMA) 01/27/20 No Stop Date Active potassium chloride ER 20 mEq tablet,extended release(part/cryst) RxNorm: 7227888 2 TABS (40MEQ) ORALLY TWICE DAILY (DX: HYPOKALEMIA) 01/27/20 24 025 Inactive cephalexin 500 mg capsule RxNorm: 542269 Take 1 Capsule(s) Oral QID 12/17/19 24 024 Inactive cephalexin 500 mg capsule RxNorm: 160156 Take 1 Capsule(s) Oral QID 12/17/19 24 024 Inactive acetaminophen 500 mg tablet RxNorm: 651058 (MAX APAP:4GM/24HR) Take 1 Tablet(s) Oral TID as needed for pain 12/10/19 24 024 Inactive torsemide 20 mg tablet RxNorm: 895314 Take 1 Tablet(s) Oral QD 10/26/19 24 024 Inactive potassium chloride ER 20 mEq tablet,extended release RxNorm: 846359 Take 2 Tablet(s) Oral BID 10/26/19 24 024 Inactive torsemide 20 mg tablet RxNorm: 984813 Take 1 Tablet(s) Oral QD 10/26/19 24 025 Inactive potassium chloride ER 20 mEq tablet,extended release RxNorm: 150673 Take 2 Tablet(s) Oral BID 10/26/19 24 025 Inactive Artificial Tears (PF) 0.1 %-0.3 % drops in a dropperette RxNorm: 344118 Apply 1-2 Drop(s) Both eyes BID as needed 09/28/19 24 025 Inactive erythromycin 5 mg/gram (0.5 %) eye ointment RxNorm: 689701 Apply 1 Application Both eyes QHS every night at bedtime Instill ~1 cm ribbon into affected eye 09/28/19 24 Inactive Artificial Tears (PF) 0.1 %-0.3 % drops in a dropperette RxNorm: 133655 Apply 1-2 Drop(s) Both eyes BID as needed 09/28/19 24 Inactive erythromycin 5 mg/gram (0.5 %) eye ointment RxNorm: 395313 Apply 1 Application Both eyes QHS every night at bedtime Instill ~1 cm ribbon into affected eye 09/28/19 24 Inactive acetaminophen 500 mg tablet RxNorm: 426861 (MAX APAP:4GM/24HR) Take 1 Tablet(s) Oral TID as needed for pain 09/24/19 Inactive carvedilol 25 mg tablet RxNorm: 983639 Take 1 Tablet(s) Oral QD 09/08/19 24 No Stop Date Active pregabalin 100 mg capsule RxNorm: 551812 Take 1 Capsule(s) Oral QAM every morning 09/07/19 24 024 Inactive bisacodyl 10 mg rectal suppository RxNorm: 158791 Insert 1 Suppository Rectal QD as needed 07/13/19 24 No Stop Date Active ketoconazole 2 % shampoo RxNorm: 870664 Apply 1 Application Topical UD as directed 07/13/19 24 No Stop Date Active Ozempic 1 mg/dose (4 mg/3 mL) subcutaneous pen injector RxNorm: 6464197 Inject 1 Milligram(s) Subcutaneous QW once a week 07/13/19 24 No Stop Date Active Guaifenesin AC 10 mg-100 mg/5 mL oral liquid RxNorm: 961340 Take 10 Milliliter(s) Oral Q4H every four hours as needed 07/13/19 24 No Stop Date Active hydrocortisone 2.5 % topical cream RxNorm: 920357 Apply 1 Application Topical BID as needed 07/13/19 24 No Stop Date Active rosuvastatin 20 mg sprinkle capsule RxNorm: 5442479 Take 1 Capsule(s) Oral QD 07/13/19 24 025 Inactive rosuvastatin 40 mg tablet RxNorm: 870684 Take 1 Tablet(s) Oral QPM every evening 07/13/19 24 024 Inactive ezetimibe 10 mg tablet RxNorm: 989375 Take 1 Tablet(s) Oral QD 07/13/19 24 025 Inactive polyethylene glycol 3350 17 gram/dose oral powder RxNorm: 126951 Take 17 Gram(s) Oral BID as needed mix in 4-8ox water 07/13/19 24 025 Inactive aripiprazole 15 mg tablet RxNorm: 137696 Take 1/2 Tablet(s) Oral QD 07/13/19 24 024 Inactive isosorbide mononitrate ER 60 mg tablet,extended release 24 hr RxNorm: 466180 Take 1 Tablet(s) Oral QD 07/13/19 24 024 Inactive ammonium lactate 12 % topical cream RxNorm: 859593 Apply 1 Application Topical BID 07/13/19 24 025 Inactive Vascepa 1 gram capsule RxNorm: 7061227 Take 2 Capsule(s) Oral BID 07/13/19 24 024 Inactive venlafaxine ER 75 mg capsule,extended release 24 hr RxNorm: 899207 Take 3 Capsule(s) Oral QD 07/13/19 24 024 Inactive Basaglar KwikPen U-100 Insulin 100 unit/mL (3 mL) subcutaneous RxNorm: 3382941 Inject 30U SubQ twice daily 07/07/19 24 024 Inactive Please dispense one month supply. Basaglar KwikPen U-100 Insulin 100 unit/mL (3 mL) subcutaneous RxNorm: 6375339 Inject 30U SubQ twice daily 07/07/19 24 024 Inactive Please dispense one month supply. pregabalin 150 mg capsule RxNorm: 017903 Take 1 Capsule(s) Oral QHS every night at bedtime 07/05/19 24 024 Inactive pregabalin 150 mg capsule RxNorm: 861071 Take 1 Capsule(s) Oral QHS every night at bedtime 07/05/19 24 024 Inactive polyethylene glycol 3350 17 gram/dose oral powder RxNorm: 731264 Take 1 Packet Oral QD as needed (1 packet = 17g) mix with 4-8oz of liquid 06/15/19 024 Inactive bisacodyl 10 mg rectal suppository RxNorm: 027464 Insert one suppository per rectum once daily as needed for constipation 06/15/19 024 Inactive bisacodyl 10 mg rectal suppository RxNorm: 384964 Insert one suppository per rectum once daily as needed for constipation 06/15/19 024 Inactive pregabalin 100 mg capsule RxNorm: 639299 Take 1 Capsule(s) Oral QAM every morning 04/27/20 024 Inactive Levemir FlexPen 100 unit/mL (3 mL) solution subcutaneous insulin pen RxNorm: 438703 Inject 30 Unit(s) Subcutaneous BID 04/27/20 024 Inactive rosuvastatin 40 mg tablet RxNorm: 856568 Take 1 Tablet(s) Oral QPM every evening 04/16/20 024 Inactive D/C rosuvastatin 20mg venlafaxine ER 75 mg capsule,extended release 24 hr RxNorm: 038223 Take 3 Capsule(s) Oral QD 04/14/20 023 Inactive pregabalin 100 mg capsule RxNorm: 276255 Take 1 Capsule(s) Oral QAM every morning [...] strip clotrimazole 1 % topical cream RxNorm: 375530 Take apply topically to abdominal folds twice daily for 14 days 03/12/20 024 Inactive Ozempic 1 mg/dose (4 mg/3 mL) subcutaneous pen injector RxNorm: 6668362 Inject 1 Milligram(s) Subcutaneous QW once a week 03/11/20 023 Inactive rosuvastatin 20 mg tablet RxNorm: 913098 Take 1 Tablet(s) Oral QD 02/26/20 23 023 Inactive d/c pravastatin 80mg Ozempic 1 mg/dose (4 mg/3 mL) subcutaneous pen injector RxNorm: 3355058 Inject 1 Milligram(s) Subcutaneous QW once a week 02/20/20 23 023 Inactive pregabalin 150 mg capsule RxNorm: 881942 Take 1 Capsule(s) Oral HS at bed time 02/19/20 23 023 Inactive pregabalin 100 mg capsule RxNorm: 677741 Take 1 Capsule(s) Oral QAM every morning 02/18/20 23 023 Inactive venlafaxine ER 75 mg capsule,extended release 24 hr RxNorm: 940967 Take 3 Capsule(s) Oral QD 02/04/20 23 023 Inactive FreeStyle Chema 2 Sensor kit RxNorm: use as directed 02/04/20 23 023 Inactive FreeStyle Chema 2 Sensor kit RxNorm: use as directed 02/04/20 23 024 Inactive fluconazole 150 mg tablet RxNorm: 485692 Take 1 Tablet(s) Oral on day 3 and on day 6 02/03/20 024 Inactive venlafaxine ER 150 mg capsule,extended release 24 hr RxNorm: 154017 Take 1 Capsule(s) Oral QD 02/03/20 23 023 Inactive chlorthalidone 25 mg tablet RxNorm: 800427 Take 1 Tablet(s) Oral QAM every morning 02/03/20 23 024 Inactive acetaminophen 500 mg tablet RxNorm: 827222 1 TABLET ORALLY 3 TIMES DAILY (MAX APAP:4GM/24HR) 12/15/19 23 023 Inactive clotrimazole 1 % topical cream RxNorm: 841969 apply 1g topically to top of feet and in between toes BID 12/09/19 23 025 Inactive potassium chloride ER 20 mEq tablet,extended release RxNorm: 041472 Take 1 Tablet(s) Oral BID 12/09/19 23 024 Inactive d/c 20mEq once daily (sent from hospital) nystatin 100,000 unit/gram topical powder RxNorm: 682220 APPLY TO AFFECTED AREAS TOPICALLY 2 TIMES DAILY 11/21/19 23 023 Inactive Nystop 100,000 unit/gram topical powder RxNorm: 284437 Apply to abd folds, under breasts and L side of groin Topical BID x 14 days, then BID PRN 11/20/19 023 Inactive dx: yeast dermatitis Bengay Ultra Strength 4 %-30 %-10 % topical cream RxNorm: 315273 Apply 1 Gram(s) Topical QID PRN to feet and legs for neuropathic pain 11/11/19 024 Inactive clotrimazole 1 % topical cream RxNorm: 829278 Apply 1/2 Gram(s) Topical BID Apply to affected areas of groin, periarea, and abdominal topically 2 times daily 11/10/19 023 Inactive hydrocortisone 2.5 % topical cream RxNorm: 859348 Apply 1/2 Gram(s) Topical BID as needed 11/10/19 23 024 Inactive Levemir FlexPen 100 unit/mL (3 mL) solution subcutaneous insulin pen RxNorm: 132424 Inject 30 Unit(s) Subcutaneous BID 10/07/19 23 023 Inactive Humulin R U-500 (Concentrated) Insulin 500 unit/mL subcutaneous soln RxNorm: 988709 Inject 100 Unit(s) Subcutaneous TID 10/07/19 024 Inactive Ozempic 0.25 mg or 0.5 mg (2 mg/3 mL) subcutaneous pen injector RxNorm: 0720538 Inject 1/2 Milligram(s) Subcutaneous QW once a week 10/07/19 23 024 Inactive aripiprazole 15 mg tablet RxNorm: 679089 1/2 TAB (7.5MG) ORALLY DAILY (DX:MAJOR DEPRESSIVE DISORDER) 09/23/19 23 023 Inactive Accu-Chek Guide test strips RxNorm: Use 1 Test Strip QID 09/15/19 23 023 Inactive ok to substitute with any covered alternative test strip Lancets,Thin 28 gauge RxNorm: Use 1 as directed QID 09/15/19 23 023 Inactive torsemide 20 mg tablet RxNorm: 669277 Take 1 Tablet(s) Oral BID 09/09/19 23 024 Inactive d/c once daily dosing carvedilol 25 mg tablet RxNorm: 418327 Take 1 Tablet(s) Oral QD 08/25/19 23 024 Inactive pregabalin 150 mg capsule RxNorm: 513692 1 Capsule(s) Oral HS at bed time 08/18/19 23 023 Inactive pregabalin 100 mg capsule RxNorm: 855794 1 Capsule(s) Oral QAM every morning 08/18/19 23 023 Inactive carvedilol 25 mg tablet RxNorm: 038042 1 Tablet(s) Oral QD 07/28/19 23 023 Inactive lisinopril 20 mg tablet RxNorm: 425642 Give 1 Tablet(s) Oral QD 07/28/19 23 023 Inactive Lyrica 150 mg capsule RxNorm: 420384 Take 1 Capsule(s) Oral QHS every night at bedtime 07/19/19 23 023 Inactive d/c 100mg dose Diflucan 150 mg tablet RxNorm: 249010 Take 1 Tablet(s) Oral QD repeat on day 3 and 6 07/19/19 23 023 Inactive pregabalin 100 mg capsule RxNorm: 752681 Take 1 Capsule(s) Oral QAM every morning 07/19/19 23 023 Inactive gatifloxacin 0.5 % eye drops RxNorm: 448400 Instill 1 Drop(s) as directed TID Instill 1 drop in to affected eye(s) starting 1 day prior to surgery and continue until gone (do not exceed 4 weeks). 07/13/19 23 023 Inactive carvedilol 25 mg tablet RxNorm: 483380 2 Tablet(s) Oral BID 07/13/19 23 023 Inactive Humulin R Regular U-100 Insulin 100 unit/mL injection solution RxNorm: 464213 85 Unit(s) Injection TID 07/13/19 23 023 Inactive ketorolac 0.5 % eye drops RxNorm: 320636 Instill 1 Drop(s) as directed QID Instill 1 drop into affected eye(s) 4 times daily starting 1 day prior to surgery and continue until gone (do not exceed 4 weeks). 07/13/19 23 023 Inactive Diflucan 150 mg tablet RxNorm: 981062 Take 1 Tablet(s) Oral QD repeat on day 3 and 6 06/30/19 23 023 Inactive Accu-Chek Guide test strips RxNorm: Use 1 Test Strip QID Use 1 test strip to monitor blood glucose 4 times daily and as needed. Dx:E11.42. 06/23/19 23 023 Inactive ok to substitute with any covered alternative test strip dextromethorphan-gu aifenesin 10 mg-100 mg/5 mL oral liquid RxNorm: 700488 Take 10 Milliliter(s) Oral every 4 hours as needed for cough 06/19/19 23 023 Inactive dextromethorphan-gu aifenesin 10 mg-100 mg/5 mL oral liquid RxNorm: 690712 Take 10 Milliliter(s) Oral every 4 hours as needed for cough 06/19/19 23 023 Inactive Lyrica 150 mg capsule RxNorm: 935681 Take 1 Capsule(s) Oral QHS every night at bedtime 06/18/19 23 023 Inactive d/c 100mg dose aripiprazole 15 mg tablet RxNorm: 114021 1/2 TAB (7.5MG) ORALLY DAILY (DX:MAJOR DEPRESSIVE DISORDER) 06/05/19 23 023 Inactive pregabalin 100 mg capsule RxNorm: 089134 1 Capsule(s) Oral QAM every morning 06/02/19 23 023 Inactive Banophen 50 mg capsule RxNorm: 7723463 Take 1 Capsule(s) Oral Q6H every 6 hours as needed 05/19/19 23 No Stop Date Active Novolog Flexpen U-100 Insulin aspart 100 unit/mL (3 mL) subcutaneous RxNorm: 1950878 Inject 10 Unit(s) Subcutaneous QHS every night at bedtime with nighttime snack 04/08/20 22 022 Inactive Novolog Flexpen U-100 Insulin aspart 100 unit/mL (3 mL) subcutaneous RxNorm: 5610106 Inject 42 Unit(s) Subcutaneous TID in addition to sliding scale 04/08/20 022 Inactive d/c 36u albuterol sulfate HFA 90 mcg/actuation aerosol inhaler RxNorm: 4798695 Take 2 Puff(s) Inhalation Q4H every four hours as needed as needed for SOB, cough, or wheezing 04/07/20 030 Active Banophen 50 mg capsule RxNorm: 8582517 Take 1 Capsule(s) Oral Q6H every 6 hours as needed 04/06/20 023 Inactive diphenhydramine 50 mg tablet RxNorm: 4261515 Take 1 Tablet(s) Oral Q6H every 6 hours as needed 04/06/20 022 Inactive diphenhydramine 50 mg tablet RxNorm: 3219542 1 Tablet(s) Oral Q6H every 6 hours as needed 04/06/20 022 Inactive Abilify 15 mg tablet RxNorm: 208606 1/2 Tablet(s) Oral QD 03/10/20 023 Inactive Shingrix (PF) 50 mcg/0.5 mL intramuscular suspension, kit RxNorm: 3799774 Administer 1/2 Milliliter(s) Intramuscular QD one time shingrix step 2 ( step 1 given 11/04/21) WITH needle - Nursing please administer upon arrival and once administered post a bridge message with date of administration, group program manager, expiration date, and lot# so we can update [facility] 02/18/20 22 022 Inactive dispense with needle Shingrix (PF) 50 mcg/0.5 mL intramuscular suspension, kit RxNorm: 3149354 Administer 1/2 Milliliter(s) Intramuscular QD one time shingrix step 2 ( step 1 given 11/04/21) WITH needle - Nursing please administer upon arrival and once administered post a bridge message with date of administration, group program manager, expiration date, and lot# so we can update [facility] 02/18/20 22 022 Inactive dispense with needle Lyrica 100 mg capsule RxNorm: 558701 Take 1 Capsule(s) Oral QAM every morning 01/08/20 22 022 Inactive d/c 50mg dose acetaminophen 500 mg tablet RxNorm: 709341 Take 1 Tablet(s) Oral TID 01/08/20 22 022 Inactive d/c PRN order Lyrica 150 mg capsule RxNorm: 524084 Take 1 Capsule(s) Oral QHS every night at bedtime 01/08/20 22 023 Inactive d/c 100mg dose polyethylene glycol 3350 17 gram/dose oral powder RxNorm: 616532 Take 17=1 capful Gram(s) Oral QD mix with 4-8oz of liquid 01/08/20 22 025 Inactive take this in addition to BID prn order Abilify 5 mg tablet RxNorm: 459461 Take 1 Tablet(s) Oral QD take 1 tab po QD #30 refill 5 dx: MDD 12/12/19 22 022 Inactive Abilify 5 mg tablet RxNorm: 303321 Take 1 Tablet(s) Oral QD take 1 tab po QD #30 refill 5 dx: MDD 12/12/19 22 022 Inactive Novolog Flexpen U-100 Insulin aspart 100 unit/mL (3 mL) subcutaneous RxNorm: 0029574 Inject 42 Unit(s) Subcutaneous TID in addition to sliding scale 12/10/19 22 022 Inactive d/c 36u chlorthalidone 25 mg tablet RxNorm: 212167 Take 1 Tablet(s) Oral QAM every morning 12/10/19 22 023 Inactive pregabalin 50 mg capsule RxNorm: 998673 Take 1 Capsule(s) Oral QAM every morning 11/12/19 22 022 Inactive tetanus-diphtheria toxoids-Td 2 Lf unit-2 Lf unit/0.5 mL IM suspension RxNorm: 139 Take 0.5 Miscellaneous Intramuscular 11/12/19 22 022 Inactive need tdap - nursing to administer upon arrival pregabalin 50 mg capsule RxNorm: 495909 Take 1 Capsule(s) Oral QAM every morning 10/16/19 22 022 Inactive pregabalin 50 mg capsule RxNorm: 865182 Take 1 Capsule(s) Oral QAM every morning 10/16/19 22 022 Inactive pregabalin 50 mg capsule RxNorm: 730402 1 Capsule(s) Oral QAM every morning 10/15/19 22 Inactive Shingrix (PF) 50 mcg/0.5 mL intramuscular suspension, kit RxNorm: 1394435 Administer 1/2 Milliliter(s) Intramuscular one time Nursing please administer upon arrival and once administered post a bridge message with date of administration, group program manager, expiration date, and lot# so we can update [facility]. 10/09/19 22 022 Inactive shingrix step 1 Shingrix (PF) 50 mcg/0.5 mL intramuscular suspension, kit RxNorm: 7629766 Administer 1/2 Milliliter(s) Intramuscular one time Nursing please administer upon arrival and once administered post a bridge message with date of administration, group program manager, expiration date, and lot# so we [...] aspart 100 unit/mL (3 mL) subcutaneous RxNorm: 4736917 Inject 10 Unit(s) Subcutaneous QHS every night at bedtime with nighttime snack 10/08/19 22 Inactive Shingrix (PF) 50 mcg/0.5 mL intramuscular suspension, kit RxNorm: 5665277 ADMINISTER 2-DOSE SERIES PER CDC GUIDELINES 10/08/19 22 022 Active Shingrix (PF) 50 mcg/0.5 mL intramuscular suspension, kit RxNorm: 3678649 ADMINISTER 2-DOSE SERIES PER CDC GUIDELINES 10/08/19 22 022 Inactive Novolog Flexpen U-100 Insulin aspart 100 unit/mL (3 mL) subcutaneous RxNorm: 4224050 Inject 36 Unit(s) Subcutaneous TID in addition to sliding scale 10/08/19 Inactive cholecalciferol (vitamin D3) 1,250 mcg (50,000 unit) capsule RxNorm: 265666 Take 1 Capsule(s) Oral QW once a week 10/08/19 Inactive Novofine Autocover 30 gauge x 1/3 needle RxNorm: Use 1 Miscellaneous UD as directed Use 1 needle as directed to administer insulin 5 times a day Dx:E11.42. 10/03/19 Inactive ok to substitute with any covered alternative pen needle benzoyl peroxide 10 % topical cleanser RxNorm: 725759 Apply 1 Application Topical QD apply to face, wash rinse and dry once daily (may change to QOD if drying) 08/19/19 022 Inactive (%covered by insurance) #60ml refill 11 dx: acne benzoyl peroxide 10 % topical cleanser RxNorm: 567397 Apply 1 Application Topical QD apply to face, wash rinse and dry once daily (may change to QOD if drying) 08/19/19 022 Inactive (%covered by insurance) #60ml refill 11 dx: acne benzoyl peroxide 10 % topical cleanser RxNorm: 650336 Apply 1 Application Topical QD apply to face, wash rinse and dry once daily (may change to QOD if drying) 08/19/19 22 022 Inactive (%covered by insurance) #60ml refill 11 dx: acne Lyrica 50 mg capsule RxNorm: 958913 Take 1 Capsule(s) Oral QAM every morning Take 1 capsule by mouth once daily 08/19/19 22 022 Inactive benzoyl peroxide 10 % topical cleanser RxNorm: 004782 Apply 1 Application Topical QD apply to face, wash rinse and dry once daily (may change to QOD if drying) 08/19/19 22 022 Inactive (%covered by insurance) #60ml refill 11 dx: acne Lyrica 100 mg capsule RxNorm: 912702 Take 1 Capsule(s) Oral QHS every night at bedtime Take 1 capsule by mouth once daily at bedtime 08/19/19 22 022 Inactive Lyrica 100 mg capsule RxNorm: 045143 Take 1 Capsule(s) Oral QHS every night at bedtime Take 1 capsule by mouth once daily at bedtime 08/16/19 22 022 Inactive Lyrica 50 mg capsule RxNorm: 162624 Take 1 Capsule(s) Oral QAM every morning Take 1 capsule by mouth once daily 08/16/19 22 022 Inactive Levemir FlexTouch U-100 Insulin 100 unit/mL (3 mL) subcutaneous pen RxNorm: 405925 Inject 86 Unit(s) Subcutaneous BID 08/05/19 22 022 Inactive d/c 83units BID Lyrica 100 mg capsule RxNorm: 811338 Take 1 Capsule(s) Oral QHS every night at bedtime Take 1 capsule by mouth once daily at bedtime 07/14/19 22 022 Inactive Lyrica 50 mg capsule RxNorm: 745157 Take 1 Capsule(s) Oral QAM every morning Take 1 capsule by mouth once daily 07/14/19 22 022 Inactive Levemir FlexTouch U-100 Insulin 100 unit/mL (3 mL) subcutaneous pen RxNorm: 094582 Inject 83 Unit(s) Subcutaneous BID 07/08/19 22 [...] test strip hydralazine 50 mg tablet RxNorm: 445240 Take 1 Tablet(s) Oral QID 05/05/20 21 022 Inactive venlafaxine ER 225 mg tablet,extended release 24 hr RxNorm: 482131 Take 1 Tablet(s) Oral QD 05/05/20 21 021 Inactive venlafaxine ER 225 mg tablet,extended release 24 hr RxNorm: 431978 Take 1 Tablet(s) Oral QD 05/05/20 21 022 Inactive isosorbide mononitrate ER 30 mg tablet,extended release 24 hr RxNorm: 895820 Take 1 Tablet(s) Oral QD 05/05/20 21 024 Inactive hydralazine 50 mg tablet RxNorm: 436712 Take 1 Tablet(s) Oral QID 05/05/20 21 021 Inactive aspirin 81 mg tablet,delayed release RxNorm: 039246 Take 1 Tablet(s) Oral QD 03/31/20 022 Inactive Vitamin D2 1,250 mcg (50,000 unit) capsule RxNorm: 2226796 Take 1 Capsule(s) Oral QW once a week x 12 weeks 03/31/20 022 Inactive Vitamin D2 1,250 mcg (50,000 unit) capsule RxNorm: 7984386 Take 1 Capsule(s) Oral QW once a week 03/31/20 021 Inactive Zetia 10 mg tablet RxNorm: 101965 Take 1 Tablet(s) Oral QD 03/31/20 024 Inactive Zetia 10 mg tablet RxNorm: 730466 Take 1 Tablet(s) Oral QD 03/31/20 021 Inactive hydralazine 25 mg tablet RxNorm: 481017 Take 1 Tablet(s) Oral QID 03/31/20 021 Inactive hydralazine 25 mg tablet RxNorm: 376080 Take 1 Tablet(s) Oral QID 03/31/20 021 Inactive hydralazine 10 mg tablet RxNorm: 471333 Take 1 Tablet(s) Oral QID 03/03/20 021 Inactive cephalexin 500 mg tablet RxNorm: 439481 Take 1 Tablet(s) Oral QID 02/27/20 021 Inactive cephalexin 500 mg tablet RxNorm: 209142 Take 1 Tablet(s) Oral QID 02/27/20 021 Inactive lisinopril 40 mg tablet RxNorm: 717438 Take 1 Tablet(s) Oral QD 02/11/20 023 Inactive Eliquis 5 mg tablet RxNorm: 6216797 Take 1 Tablet(s) Oral BID 01/05/20 21 025 Inactive Eliquis 5 mg tablet RxNorm: 7353496 Take 2 Tablet(s) Oral QD 01/01/20 21 021 Inactive Lyrica 50 mg capsule RxNorm: 366264 Take 1 Capsule(s) Oral QAM every morning 12/24/19 21 021 Inactive Lyrica 100 mg capsule RxNorm: 441174 Take 1 Capsule(s) Oral QHS every night at bedtime 12/24/19 21 021 Inactive clotrimazole 1 % topical cream RxNorm: 571140 Apply to right foot and toes Topical BID 12/04/19 21 023 Inactive metoprolol succinate ER 200 mg tablet,extended release 24 hr RxNorm: 512991 Take 1 Tablet(s) Oral QD 12/04/19 023 Inactive ciprofloxacin 500 mg tablet RxNorm: 584380 Take 1 Tablet(s) Oral QD 11/30/19 21 021 Inactive DX ofloxacin otic drops Accu-Chek Guide test strips RxNorm: USE 1 TO CHECK GLUCOSE 4 TIMES DAILY AND NEEDED 11/15/19 21 023 Inactive Blood Glucose Test strips RxNorm: Use 1 Test Strip QID at PRN 11/05/19 21 023 Inactive E11.42 lisinopril 30 mg tablet RxNorm: 290540 Take 1 Tablet(s) Oral QD 10/30/19 21 021 Inactive lisinopril 20 mg tablet RxNorm: 129152 Take 1 Tablet(s) Oral QD 10/23/19 21 021 Inactive lisinopril 20 mg tablet RxNorm: 240613 Take 1 Tablet(s) Oral QD 10/23/19 021 Inactive lisinopril 10 mg tablet RxNorm: 514987 Take 1 Tablet(s) Oral QD 10/02/19 021 Inactive icosapent ethyl 1 gram capsule RxNorm: 2650139 Take 2 Capsule(s) (2 gm) Oral BID with meals 09/12/19 024 Inactive Okay to dispense one 2gm tab if you have that available. icosapent ethyl 1 gram capsule RxNorm: 6700826 Take 2 Capsule(s) Oral BID 09/12/19 21 021 Inactive Okay to dispense one 2gm tab if you have that available. amlodipine 10 mg tablet RxNorm: 705690 Take 1 Tablet(s) Oral QD 09/04/19 21 021 Inactive aspirin 81 mg tablet,delayed release RxNorm: 599799 Take 1 Tablet(s) Oral QD 09/04/19 21 021 Inactive Levemir FlexTouch U-100 Insulin 100 unit/mL (3 mL) subcutaneous pen RxNorm: 171114 Inject 150 Unit(s) Subcutaneous BID 09/04/19 21 022 Inactive venlafaxine ER 150 mg tablet,extended release 24 hr RxNorm: 960559 Take 1 Tablet(s) Oral QD 09/04/19 21 021 Inactive clotrimazole-betame thasone 1 %-0.05 % topical cream RxNorm: 278741 Apply to rash on red area on left abdomen/chest Topical BID 08/10/19 21 021 Inactive amlodipine 5 mg tablet RxNorm: 539509 Take 1 Tablet(s) Oral QD 07/31/19 021 Inactive cephalexin 500 mg tablet RxNorm: 511627 Take 1 Tablet(s) Oral BID BID - Twice Daily 07/31/19 021 Inactive Start 08/01/20 pantoprazole 40 mg tablet,delayed release RxNorm: 244425 Take 1 Tablet(s) Oral QAM every morning 07/08/19 025 Inactive clopidogrel 75 mg tablet RxNorm: 062217 Take 1 Tablet(s) Oral QD 07/08/19 021 Inactive Blood Glucose Test strips RxNorm: Use 1 Test Strip QID at PRN 07/08/19 021 Inactive E11.42 senna 8.6 mg tablet RxNorm: 079046 Take 1 Tablet(s) Oral QD 07/08/19 025 Inactive Novolog Flexpen U-100 Insulin aspart 100 unit/mL (3 mL) subcutaneous RxNorm: 8998504 Administer per sliding scale Milliliter(s) Subcutaneous TID 151-200: 10 u; 201-250: 20 u; 251-300: 30 u; 301-350: 40 u; 351-400: 50 u. 07/08/19 022 Inactive lisinopril 5 mg tablet RxNorm: 286981 Take 1 Tablet(s) Oral QD 07/08/19 021 Inactive Novolog Flexpen U-100 Insulin aspart 100 unit/mL (3 mL) subcutaneous RxNorm: 4756556 Inject 85 Unit(s) Subcutaneous TID 07/08/19 022 Inactive pravastatin 80 mg tablet RxNorm: 783461 Take 1 Tablet(s) Oral QHS every night at bedtime 07/08/19 023 Inactive clotrimazole 1 % topical cream RxNorm: 646784 Apply to bilateral groin areas Topical BID 07/08/19 21 022 Inactive metoprolol succinate ER 200 mg tablet,extended release 24 hr RxNorm: 271419 Take 1 Tablet(s) Oral QD 07/08/19 21 021 Inactive Vitamin D3 25 mcg (1,000 unit) tablet RxNorm: 649965 Take 1 Tablet(s) Oral QD 07/08/19 021 Inactive isosorbide dinitrate 30 mg tablet RxNorm: 204200 Take 1 Tablet(s) Oral QD 07/08/19 21 021 Inactive carbamazepine 200 mg tablet RxNorm: 779013 Take 1 Tablet(s) Oral BID 07/08/19 025 Inactive Levemir FlexTouch U-100 Insulin 100 unit/mL (3 mL) subcutaneous pen RxNorm: 731418 Inject 140 Unit(s) Subcutaneous BID 07/08/19 021 Inactive torsemide 20 mg tablet RxNorm: 288648 Take 1 Tablet(s) Oral QD 07/08/19 023 Inactive venlafaxine 75 mg tablet RxNorm: 980154 Take 1 Tablet(s) Oral QD 07/08/19 021 Inactive acetaminophen 500 mg tablet RxNorm: 663671 Take 1 Tablet(s) Oral TID as needed for headache 06/18/19 021 Inactive acetaminophen 500 mg tablet RxNorm: 971739 Take 1 Tablet(s) Oral TID as needed for headache 06/18/19 021 Inactive Lyrica 100 mg capsule RxNorm: 470122 Take 1 Capsule(s) Oral QHS every night at bedtime 06/11/19 21 021 Inactive Lyrica 50 mg capsule RxNorm: 674701 Take 1 Capsule(s) Oral QAM every morning 06/10/19 21 021 Inactive hydrocortisone 2.5 % topical cream RxNorm: 136535 Apply to bilateral groin creases Topical BID 05/15/20 20 021 Inactive clotrimazole 1 % topical cream RxNorm: 433692 Apply to bilateral groin areas Topical BID 05/15/20 20 Inactive Lyrica 50 mg capsule RxNorm: 626062 Take 1 Capsule(s) Oral QAM every morning 05/14/20 20 Inactive Lyrica 100 mg capsule RxNorm: 364910 Take 1 Capsule(s) Oral QHS every night [...] Inactive Nystop 100,000 unit/gram topical powder RxNorm: 381853 Apply to abd folds, under breasts and L side of groin Topical BID x 14 days, then BID PRN 04/08/20 20 020 Inactive dx: yeast dermatitis Lyrica 100 mg capsule RxNorm: 531765 Take 1 Capsule(s) Oral QHS every night at bedtime 03/13/20 20 Inactive Lyrica 50 mg capsule RxNorm: 051132 Take 1 Capsule(s) Oral QAM every morning 03/13/20 20 Inactive ketoconazole 2 % shampoo RxNorm: 410728 Apply Topical two times a week with showers 03/11/20 20 024 Inactive cholecalciferol (vitamin D3) 50 mcg (2,000 unit) tablet RxNorm: 511728 Take 1 Tablet(s) Oral QD 03/11/20 20 021 Inactive Zetia 10 mg tablet RxNorm: 035925 Take 1 Tablet(s) Oral QD 03/07/20 20 021 Inactive Zetia 10 mg tablet RxNorm: 347355 Take 1 Tablet(s) Oral QD 03/07/20 20 Inactive Lyrica 50 mg capsule RxNorm: 743056 Take 1 Capsule(s) Oral QAM every morning 02/15/20 20 020 Inactive Lyrica 100 mg capsule RxNorm: 338230 Take 1 Capsule(s) Oral QHS every night at bedtime 02/15/20 20 Inactive Lyrica 100 mg capsule RxNorm: 477122 Take 1 Capsule(s) Oral QHS every night at bedtime 02/15/20 20 Inactive Lyrica 50 mg capsule RxNorm: 296948 Take 1 Capsule(s) Oral QAM every morning 02/15/20 20 Inactive loperamide 2 mg capsule RxNorm: 794277 Take 1 Capsule(s) Oral QID as needed 09/06/19 025 Inactive venlafaxine ER 75 mg capsule,extended release 24 hr RxNorm: 532702 Take 3 Capsule(s) Oral QD 06/12/19 023 Inactive polyethylene glycol 3350 17 gram/dose oral powder RxNorm: 288264 Take 17=1 capful Gram(s) Oral BID as needed mix with 4-8oz of liquid 06/12/19 22 024 Inactive icosapent ethyl 1 gram capsule RxNorm: 7806014 Take 2 Capsule(s) (2 gm) Oral BID with meals 10/07/19 23 023 Inactive Okay to dispense one 2gm tab if you have that available. Levemir FlexTouch U-100 Insulin 100 unit/mL (3 mL) subcutaneous pen RxNorm: 744830 Inject 80 Unit(s) Subcutaneous BID 07/14/19 23 023 Inactive metoprolol succinate ER 200 mg tablet,extended release 24 hr RxNorm: 937531 Take 1 Tablet(s) Oral QD 08/12/19 025 Inactive hydralazine 50 mg tablet RxNorm: 558401 Take 1 Tablet(s) Oral QID 08/12/19 23 025 Inactive Soft Touch Lancets RxNorm: miscellaneous 03/04/20 24 025 Inactive Novolog Flexpen U-100 Insulin aspart 100 unit/mL (3 mL) subcutaneous RxNorm: 0209069 Insert 30 Unit(s) Subcutaneous TID with meals [...] Planned Activity Notes Codes Status Date Referral: [facility]Imaging WPtel: [address] [id number] [place] Referral Appointment Scheduled 10/20/2024 Patient Education: Patient Medication Summary Completed 08/31/2024 Appointment: Brian Munson WPtel: [address] [place], [place] [id number] [place] F/U 08/08/2024 Appointment: Brian Munson WPtel: [address] [place], [place] [id number] [place] F/U 07/11/2024 Referral: [facility]/Endocrinology WPtel: [address] [facility], [facility] 3 [id number] [place] Referral No Records Received 07/10/2024 Appointment: Brian Munson WPtel: [address] [place], [place] [phone] AWV 02/08/2024 Appointment: Brian Munson WPtel: [address] [place], [place] [id number] [place] F/U 01/11/2024 Appointment: Sandra Clark WPtel: [address] [place], [place] [phone] Telehealth Psych Follow Up 12/09 Appointment: Tapan Shirley WPtel: [address] [place], [place] [phone] [place] TCM 10/26/2022 Referral: [facility] WPtel: [address], [address] [id number] [place] Referral Records Received 09/21/2022 Appointment: Tapan Shirley WPtel: [address] [place] [address] [id number] [place] F/U 08/11/2022 Appointment: Tapan Shirley WPtel: [address] [facility] [address] [id number] [place] F/U 07/14/2022 Appointment: Tapan Shirley WPtel: [address] [facility] [address] [id number] [place] F/U 02/10/2022 Referral: [facility] WPtel: [address] [facility] [address] [id number] [place] Referral Completed 05/28/2021 Referral: General Cardiology Referral [facility] ed 01/03/2021 Referral: General Psychologist Referral [...] Sister Jyotsna involved in his care cell# [phone] Guardian: Giulia (tapan met in person 09/01/21), [...] growth (due )04.04.2024: A1c ordered by endocrine (9.8%)12.30.2024: BMP Na 139. K 3.7. BUN 16.9. Creatinine 1.02. eGFR 82. BG 299H. Lipid panel TC 116. Trigs 575H. HDL 28L. LDL cannot calculate because trigs >400. nonHDL 88.Colon & Rectal Surgery visit scheduled for 06.19.2023 with Matilde Pérez PA-C. Endocrinology appointment 05.26.2024 with Jsesa Webster MD at [facility]. Start Pioglitazone 15 mg QD. Stop Basaglar insulin. Increase Ozempic 2 mg once wkly. Continue Humalin R U-500 100 units with meals TID. FOLLOW UP 2 MONTHS. If BG >400 add 50 units to next scheduled dose of Humalin R U 500 insulin 06/12/2024
--- OUTSIDE RECORDS SUMMARY | 2024-10-19 19:22 | XMS_ITS | CCD ---
Author Name Cecilio Durham Address [address] [place] [address] Phone Organization [facility] Phone Care Team Providers Care Solution Specialist Name Role Phone Harrison Durham Primary Care Provider Leona vailable Unavailable Chronic Care Management Unavaila ble Summary Purpose DataExchange Insurance Providers Payer name Policy type / Coverage type Covered libertarian ID Effective Begin Date Effective End Date [place] Part B [id number] Unknown Unknown [place] Part B [id number] Unknown Unknown Family history Sister Brittany Suggs Diagnosis Age At Onset No Family Disease Entered N/A Runs in the family Diagnosis Age At Onset No Known Diseases N/A Sister Blanka Mcduffie Diagnosis Age At Onset No Family Disease Entered N/A Social History Social History Element Codes Description Effec tive Dates Tobacco history SNOMED CT: 054708232 Never smoker 01/16 Sexually Active? Unknown No [...] Mcfp 09/03/[address]: 006830528 No Alcohol Consum ption 09/02/2020 Allergies, Adverse Reactions, Alerts Substance Reaction Codes Entered Date Inactivated Date Status * NO KNOWN FOOD ALLERGIES Unknown 07/13/2023 No Inactive Date Active LISINOPRIL RxNorm: 74816 02/12/2020 No Inactive Da te Active Metformin HCl Unknown 02/12/2020 No Inactive Cristiano e Active * NO KNOWN ENVIRONMENTAL ALLERGIES Unknown 07/13/2023 No Inactive Date Active Problems Condition Codes Effective Dates Condition St atus Hemorrhoids ICD-10: K64.9 ICD-9: 455.6 04/11/2024 Active Hyperlipidemia associated wi th type 2 diabetes mellitus ICD-10: E11.69 ICD-9: 250.80 04/11/2024 Active Hypertensive heart disease w ithout heart failure ICD-10: I11.9 ICD-9: 402.90 04/11/2024 Active Onychogryposis ICD-10: L60.2 ICD-9: 703.8 04/11/2024 Active Stage 2 chronic kidney disea se due to type 2 diabetes mellitus ICD-10: E11.22 ICD-9: 250.40 04/11/2024 Active Type 2 diabetes mellitus wit h diabetic polyneuropathy, with long-term current use of insulin ICD-10: E11.42 ICD-9: 250.60 04/11/2024 Active BMI 60.0-69.9, adult ICD-10: Z68.44 [...] state ICD-10: D68.59 ICD-9: 289.81 02/08/2024 Active Hypokalemia ICD-10: E87.6 ICD-9: 276.8 [...] immunization ICD-10: Z23 ICD-9: V03.89 02/10/2022 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 [...] Instructions nystatin 100,000 unit/gram topical powder RxNorm: 450253 Apply 1 Application Topical BID as needed abdominal/breast /groin folds 04/11/20 24 024 Inactive chlorthalidone 25 mg tablet RxNorm: 311148 Take 1 Tablet(s) Oral QAM every morning 04/06/20 24 No Stop Date Active pregabalin 150 mg capsule RxNorm: 215617 Take 1 Capsule(s) Oral QHS every night at bedtime 03/31/20 24 024 Inactive Vascepa 1 gram capsule RxNorm: 2804435 Take 2 Capsule(s) Oral BID 03/30/20 24 025 Active rosuvastatin 40 mg tablet RxNorm: 827485 1 TAB ORALLY EVERY EVENING (DX:CORONARY ARTERY DISEASE) 03/28/20 No Stop Date Active venlafaxine ER 75 mg capsule,extended release 24 hr RxNorm: 640208 3 CAPS (225MG) ORALLY DAILY (DX: MOOD DISORDER) 03/28/20 No Stop Date Active pregabalin 100 mg capsule RxNorm: 210486 Take 1 Capsule(s) Oral QAM every morning 03/20/20 Inactive cholecalciferol (vitamin D3) 1,250 mcg (50,000 unit) capsule RxNorm: 882622 Take 1 Capsule(s) Oral QW once a [...] Insulin 100 unit/mL (3 mL) subcutaneous RxNorm: 6843450 Inject 40 Unit(s) Subcutaneous BID 03/07/20 025 Inactive Please dispense one month supply. Humulin R U-500 (Concentrated) Insulin 500 unit/mL subcutaneous soln RxNorm: 263388 Inject 100 Unit(s) Subcutaneous AC before meals [...] PRN) to be use with new Accu [place] meter 03/04/20 Inactive ok to substitute with any covered alternative test strip FreeStyle Chema 2 Sensor kit RxNorm: Use UD as directed 03/02/20 025 Inactive FreeStyle Chema 2 Sensor kit RxNorm: Use UD as directed 03/02/20 Inactive Pen Needle 30 gauge x 516 RxNorm: Pen(s) Use 1 needle as directed TID 03/02/20 Inactive nystatin 100,000 unit/gram topical powder RxNorm: 609448 Apply 1 Application Topical BID as needed [...] (Concentrated) Insulin 500 unit/mL subcutaneous soln RxNorm: 697485 Inject 100 Unit(s) Subcutaneous TID 02/17/20 24 024 Inactive Humulin R U-500 (Concentrated) Insulin 500 unit/mL subcutaneous soln RxNorm: 681622 Inject 100 Unit(s) Subcutaneous TID 02/10/20 24 024 Inactive Basaglar KwikPen U-100 Insulin 100 unit/mL (3 mL) subcutaneous RxNorm: 9990510 Inject 30 Unit(s) Subcutaneous BID 02/10/20 24 024 Inactive Please dispense one month supply. pregabalin 100 mg capsule RxNorm: 651091 Take 1 Capsule(s) Oral QAM every morning 02/07/20 24 024 Inactive isosorbide mononitrate ER 60 mg tablet,extended release 24 hr RxNorm: 536913 Take 1 Tablet(s) Oral QD 02/01/20 24 Active aripiprazole 15 mg tablet RxNorm: 374822 Take 1/2 Tablet(s) Oral QD 02/01/20 24 Active torsemide 20 mg tablet RxNorm: 016035 1 TAB ORALLY DAILY (DX: EDEMA) 01/27/20 No Stop Date Active potassium chloride ER 20 mEq tablet,extended release(part/cryst) RxNorm: 8696039 2 TABS (40MEQ) ORALLY TWICE DAILY (DX: HYPOKALEMIA) 01/27/20 24 025 Inactive cephalexin 500 mg capsule RxNorm: 196868 Take 1 Capsule(s) Oral QID 12/17/19 24 024 Inactive cephalexin 500 mg capsule RxNorm: 576604 Take 1 Capsule(s) Oral QID 12/17/19 24 024 Inactive acetaminophen 500 mg tablet RxNorm: 474338 (MAX APAP:4GM/24HR) Take 1 Tablet(s) Oral TID as needed for pain 12/10/19 24 024 Inactive torsemide 20 mg tablet RxNorm: 261989 Take 1 Tablet(s) Oral QD 10/26/19 24 Inactive potassium chloride ER 20 mEq tablet,extended release RxNorm: 638649 Take 2 Tablet(s) Oral BID 10/26/19 24 025 Inactive torsemide 20 mg tablet RxNorm: 274077 Take 1 Tablet(s) Oral QD 10/26/19 24 024 Inactive potassium chloride ER 20 mEq tablet,extended release RxNorm: 689171 Take 2 Tablet(s) Oral BID 10/26/19 24 024 Inactive Artificial Tears (PF) 0.1 %-0.3 % drops in a dropperette RxNorm: 117183 Apply 1-2 Drop(s) Both eyes BID as needed 09/28/19 24 Inactive erythromycin 5 mg/gram (0.5 %) eye ointment RxNorm: 022376 Apply 1 Application Both eyes QHS every night at bedtime Instill ~1 cm ribbon into affected eye 09/28/19 24 024 Inactive Artificial Tears (PF) 0.1 %-0.3 % drops in a dropperette RxNorm: 232057 Apply 1-2 Drop(s) Both eyes BID as needed 09/28/19 24 024 Inactive erythromycin 5 mg/gram (0.5 %) eye ointment RxNorm: 702581 Apply 1 Application Both eyes QHS every night at bedtime Instill ~1 cm ribbon into affected eye 09/28/19 24 024 Inactive acetaminophen 500 mg tablet RxNorm: 688459 (MAX APAP:4GM/24HR) Take 1 Tablet(s) Oral TID as needed for pain 09/24/19 24 024 Inactive carvedilol 25 mg tablet RxNorm: 313530 Take 1 Tablet(s) Oral QD 09/08/19 No Stop Date Active pregabalin 100 mg capsule RxNorm: 080027 Take 1 Capsule(s) Oral QAM every morning 09/07/19 24 024 Inactive ezetimibe 10 mg tablet RxNorm: 182646 Take 1 Tablet(s) Oral QD 07/13/19 24 025 Inactive bisacodyl 10 mg rectal suppository RxNorm: 563571 Insert 1 Suppository Rectal QD as needed 07/13/19 No Stop Date Active polyethylene glycol 3350 17 gram/dose oral powder RxNorm: 143699 Take 17 Gram(s) Oral BID as needed mix in 4-8ox water 07/13/19 24 025 Inactive ketoconazole 2 % shampoo RxNorm: 801464 Apply 1 Application Topical UD as directed 07/13/19 No Stop Date Active Ozempic 1 mg/dose (4 mg/3 mL) subcutaneous pen injector RxNorm: 0335637 Inject 1 Milligram(s) Subcutaneous QW once a week 07/13/19 No Stop Date Active Guaifenesin AC 10 mg-100 mg/5 mL oral liquid RxNorm: 158028 Take 10 Milliliter(s) Oral Q4H every four hours as needed 07/13/19 No Stop Date Active ammonium lactate 12 % topical cream RxNorm: 472187 Apply 1 Application Topical BID 07/13/19 24 025 Inactive hydrocortisone 2.5 % topical cream RxNorm: 073976 Apply 1 Application Topical BID as needed 07/13/19 No Stop Date Active rosuvastatin 20 mg sprinkle capsule RxNorm: 1390944 Take 1 Capsule(s) Oral QD 07/13/19 24 025 Inactive rosuvastatin 40 mg tablet RxNorm: 663566 Take 1 Tablet(s) Oral QPM every evening 07/13/19 24 024 Inactive aripiprazole 15 mg tablet RxNorm: 112960 Take 1/2 Tablet(s) Oral QD 07/13/19 24 024 Inactive isosorbide mononitrate ER 60 mg tablet,extended release 24 hr RxNorm: 296941 Take 1 Tablet(s) Oral QD 07/13/19 24 024 Inactive Vascepa 1 gram capsule RxNorm: 8354053 Take 2 Capsule(s) Oral BID 07/13/19 24 024 Inactive venlafaxine ER 75 mg capsule,extended release 24 hr RxNorm: 231161 Take 3 Capsule(s) Oral QD 07/13/19 24 024 Inactive Basaglar KwikPen U-100 Insulin 100 unit/mL (3 mL) subcutaneous RxNorm: 6372862 Inject 30U SubQ twice daily 07/07/19 24 024 Inactive Please dispense one month supply. Basaglar KwikPen U-100 Insulin 100 unit/mL (3 mL) subcutaneous RxNorm: 0046250 Inject 30U SubQ twice daily 07/07/19 24 024 Inactive Please dispense one month supply. pregabalin 150 mg capsule RxNorm: 678711 Take 1 Capsule(s) Oral QHS every night at bedtime 07/05/19 24 024 Inactive pregabalin 150 mg capsule RxNorm: 866209 Take 1 Capsule(s) Oral QHS every night at bedtime 07/05/19 24 024 Inactive polyethylene glycol 3350 17 gram/dose oral powder RxNorm: 815487 Take 1 Packet Oral QD as needed (1 packet = 17g) mix with 4-8oz of liquid 06/15/19 024 Inactive bisacodyl 10 mg rectal suppository RxNorm: 319077 Insert one suppository per rectum once daily as needed for constipation 06/15/19 024 Inactive bisacodyl 10 mg rectal suppository RxNorm: 248729 Insert one suppository per rectum once daily as needed for constipation 06/15/19 024 Inactive pregabalin 100 mg capsule RxNorm: 744677 Take 1 Capsule(s) Oral QAM every morning 04/27/20 024 Inactive Levemir FlexPen 100 unit/mL (3 mL) solution subcutaneous insulin pen RxNorm: 137150 Inject 30 Unit(s) Subcutaneous BID 04/27/20 024 Inactive rosuvastatin 40 mg tablet RxNorm: 905325 Take 1 Tablet(s) Oral QPM every evening 04/16/20 024 Inactive D/C rosuvastatin 20mg venlafaxine ER 75 mg capsule,extended release 24 hr RxNorm: 381985 Take 3 Capsule(s) Oral QD 04/14/20 023 Inactive pregabalin 100 mg capsule RxNorm: 366762 Take 1 Capsule(s) Oral QAM every morning [...] strip clotrimazole 1 % topical cream RxNorm: 081278 Take apply topically to abdominal folds twice daily for 14 days 03/12/20 024 Inactive Ozempic 1 mg/dose (4 mg/3 mL) subcutaneous pen injector RxNorm: 8312587 Inject 1 Milligram(s) Subcutaneous QW once a week 03/11/20 23 023 Inactive rosuvastatin 20 mg tablet RxNorm: 642641 Take 1 Tablet(s) Oral QD 02/26/20 23 023 Inactive d/c pravastatin 80mg Ozempic 1 mg/dose (4 mg/3 mL) subcutaneous pen injector RxNorm: 7319095 Inject 1 Milligram(s) Subcutaneous QW once a week 02/20/20 23 023 Inactive pregabalin 150 mg capsule RxNorm: 654469 Take 1 Capsule(s) Oral HS at bed time 02/19/20 23 023 Inactive pregabalin 100 mg capsule RxNorm: 395141 Take 1 Capsule(s) Oral QAM every morning 02/18/20 023 Inactive venlafaxine ER 75 mg capsule,extended release 24 hr RxNorm: 628043 Take 3 Capsule(s) Oral QD 02/04/20 023 Inactive FreeStyle Chema 2 Sensor kit RxNorm: use as directed 02/04/20 23 023 Inactive FreeStyle Chema 2 Sensor kit RxNorm: use as directed 02/04/20 23 024 Inactive fluconazole 150 mg tablet RxNorm: 085872 Take 1 Tablet(s) Oral on day 3 and on day 6 02/03/20 23 024 Inactive venlafaxine ER 150 mg capsule,extended release 24 hr RxNorm: 242826 Take 1 Capsule(s) Oral QD 02/03/20 23 023 Inactive chlorthalidone 25 mg tablet RxNorm: 597280 Take 1 Tablet(s) Oral QAM every morning 02/03/20 23 024 Inactive acetaminophen 500 mg tablet RxNorm: 516669 1 TABLET ORALLY 3 TIMES DAILY (MAX APAP:4GM/24HR) 12/15/19 23 023 Inactive clotrimazole 1 % topical cream RxNorm: 397905 apply 1g topically to top of feet and in between toes BID 12/09/19 23 025 Inactive potassium chloride ER 20 mEq tablet,extended release RxNorm: 708178 Take 1 Tablet(s) Oral BID 12/09/19 024 Inactive d/c 20mEq once daily (sent from hospital) nystatin 100,000 unit/gram topical powder RxNorm: 140499 APPLY TO AFFECTED AREAS TOPICALLY 2 TIMES DAILY 11/21/19 23 023 Inactive Nystop 100,000 unit/gram topical powder RxNorm: 937482 Apply to abd folds, under breasts and L side of groin Topical BID x 14 days, then BID PRN 11/20/19 023 Inactive dx: yeast dermatitis [place] Ultra Strength 4 %-30 %-10 % topical cream RxNorm: 786461 Apply 1 Gram(s) Topical QID PRN to feet and legs for neuropathic pain 11/11/19 024 Inactive clotrimazole 1 % topical cream RxNorm: 747456 Apply 1/2 Gram(s) Topical BID Apply to affected areas of groin, periarea, and abdominal topically 2 times daily 11/10/19 023 Inactive hydrocortisone 2.5 % topical cream RxNorm: 103229 Apply 1/2 Gram(s) Topical BID as needed 11/10/19 024 Inactive Levemir FlexPen 100 unit/mL (3 mL) solution subcutaneous insulin pen RxNorm: 593072 Inject 30 Unit(s) Subcutaneous BID 10/07/19 023 Inactive Humulin R U-500 (Concentrated) Insulin 500 unit/mL subcutaneous soln RxNorm: 329885 Inject 100 Unit(s) Subcutaneous TID 10/07/19 024 Inactive Ozempic 0.25 mg or 0.5 mg (2 mg/3 mL) subcutaneous pen injector RxNorm: 6166929 Inject 1/2 Milligram(s) Subcutaneous QW once a week 10/07/19 024 Inactive aripiprazole 15 mg tablet RxNorm: 370685 1/2 TAB (7.5MG) ORALLY DAILY (DX:MAJOR DEPRESSIVE DISORDER) 09/23/19 023 Inactive Accu-Chek Guide test strips RxNorm: Use 1 Test Strip QID 09/15/19 23 023 Inactive ok to substitute with any covered alternative test strip Lancets,Thin 28 gauge RxNorm: Use 1 as directed QID 09/15/19 23 023 Inactive torsemide 20 mg tablet RxNorm: 443025 Take 1 Tablet(s) Oral BID 09/09/19 23 024 Inactive d/c once daily dosing carvedilol 25 mg tablet RxNorm: 184138 Take 1 Tablet(s) Oral QD 08/25/19 23 024 Inactive pregabalin 150 mg capsule RxNorm: 035399 1 Capsule(s) Oral HS at bed time 08/18/19 23 023 Inactive pregabalin 100 mg capsule RxNorm: 256036 1 Capsule(s) Oral QAM every morning 08/18/19 23 023 Inactive carvedilol 25 mg tablet RxNorm: 367781 1 Tablet(s) Oral QD 07/28/19 23 023 Inactive lisinopril 20 mg tablet RxNorm: 220713 Give 1 Tablet(s) Oral QD 07/28/19 23 023 Inactive Lyrica 150 mg capsule RxNorm: 877144 Take 1 Capsule(s) Oral QHS every night at bedtime 07/19/19 23 023 Inactive d/c 100mg dose Diflucan 150 mg tablet RxNorm: 005435 Take 1 Tablet(s) Oral QD repeat on day 3 and 6 07/19/19 23 023 Inactive pregabalin 100 mg capsule RxNorm: 628461 Take 1 Capsule(s) Oral QAM every morning 07/19/19 23 023 Inactive gatifloxacin 0.5 % eye drops RxNorm: 368359 Instill 1 Drop(s) as directed TID Instill 1 drop in to affected eye(s) starting 1 day prior to surgery and continue until gone (do not exceed 4 weeks). 07/13/19 23 023 Inactive carvedilol 25 mg tablet RxNorm: 425080 2 Tablet(s) Oral BID 07/13/19 23 023 Inactive Humulin R Regular U-100 Insulin 100 unit/mL injection solution RxNorm: 128021 85 Unit(s) Injection TID 07/13/19 23 023 Inactive ketorolac 0.5 % eye drops RxNorm: 852331 Instill 1 Drop(s) as directed QID Instill 1 drop into affected eye(s) 4 times daily starting 1 day prior to surgery and continue until gone (do not exceed 4 weeks). 07/13/19 23 023 Inactive Diflucan 150 mg tablet RxNorm: 332820 Take 1 Tablet(s) Oral QD repeat on day 3 and 6 06/30/19 23 023 Inactive Accu-Chek Guide test strips RxNorm: Use 1 Test Strip QID Use 1 test strip to monitor blood glucose 4 times daily and as needed. Dx:E11.42. 06/23/19 23 023 Inactive ok to substitute with any covered alternative test strip dextromethorphan-gu aifenesin 10 mg-100 mg/5 mL oral liquid RxNorm: 812974 Take 10 Milliliter(s) Oral every 4 hours as needed for cough 06/19/19 23 023 Inactive dextromethorphan-gu aifenesin 10 mg-100 mg/5 mL oral liquid RxNorm: 904357 Take 10 Milliliter(s) Oral every 4 hours as needed for cough 06/19/19 23 023 Inactive Lyrica 150 mg capsule RxNorm: 154027 Take 1 Capsule(s) Oral QHS every night at bedtime 06/18/19 23 023 Inactive d/c 100mg dose aripiprazole 15 mg tablet RxNorm: 271221 /2 TAB (7.5MG) ORALLY DAILY (DX:MAJOR DEPRESSIVE DISORDER) 06/05/19 23 023 Inactive pregabalin 100 mg capsule RxNorm: 764705 1 Capsule(s) Oral QAM every morning 06/02/19 23 023 Inactive Banophen 50 mg capsule RxNorm: 2479114 Take 1 Capsule(s) Oral Q6H every 6 hours as needed 05/19/19 23 No Stop Date Active Novolog Flexpen U-100 Insulin aspart 100 unit/mL (3 mL) subcutaneous RxNorm: 3278462 Inject 10 Unit(s) Subcutaneous QHS every night at bedtime with nighttime snack 04/08/20 Inactive Novolog Flexpen U-100 Insulin aspart 100 unit/mL (3 mL) subcutaneous RxNorm: 6393709 Inject 42 Unit(s) Subcutaneous TID in addition to sliding scale 04/08/20 Inactive d/c 36u albuterol sulfate HFA 90 mcg/actuation aerosol inhaler RxNorm: 4977062 Take 2 Puff(s) Inhalation Q4H every four hours as needed as needed for SOB, cough, or wheezing 04/07/20 030 Active Banophen 50 mg capsule RxNorm: 8311388 Take 1 Capsule(s) Oral Q6H every 6 hours as needed 04/06/20 023 Inactive diphenhydramine 50 mg tablet RxNorm: 6996478 Take 1 Tablet(s) Oral Q6H every 6 hours as needed 04/06/20 022 Inactive diphenhydramine 50 mg tablet RxNorm: 9221753 1 Tablet(s) Oral Q6H every 6 hours as needed 04/06/20 022 Inactive Abilify 15 mg tablet RxNorm: 508030 1/2 Tablet(s) Oral QD 03/10/20 023 Inactive Shingrix (PF) 50 mcg/0.5 mL intramuscular suspension, kit RxNorm: 0472640 Administer 1/2 Milliliter(s) Intramuscular QD one time shingrix step 2 ( step 1 given 11/04/21) WITH needle - Nursing please administer upon arrival and once administered post a bridge message with date of administration, physician office assistant, expiration date, and lot# so we can update [facility] 02/18/20 22 022 Inactive dispense with needle Shingrix (PF) 50 mcg/0.5 mL intramuscular suspension, kit RxNorm: 5321806 Administer 1/2 Milliliter(s) Intramuscular QD one time shingrix step 2 ( step 1 given 11/04/21) WITH needle - Nursing please administer upon arrival and once administered post a bridge message with date of administration, physician office assistant, expiration date, and lot# so we can update [facility] 02/18/20 22 022 Inactive dispense with needle polyethylene glycol 3350 17 gram/dose oral powder RxNorm: 437411 Take 17=1 capful Gram(s) Oral QD mix with 4-8oz of liquid 01/08/20 22 025 Inactive take this in addition to BID prn order Lyrica 100 mg capsule RxNorm: 081363 Take 1 Capsule(s) Oral QAM every morning 01/08/20 22 022 Inactive d/c 50mg dose acetaminophen 500 mg tablet RxNorm: 967565 Take 1 Tablet(s) Oral TID 01/08/20 22 022 Inactive d/c PRN order Lyrica 150 mg capsule RxNorm: 584544 Take 1 Capsule(s) Oral QHS every night at bedtime 01/08/20 22 023 Inactive d/c 100mg dose Abilify 5 mg tablet RxNorm: 351461 Take 1 Tablet(s) Oral QD take 1 tab po QD #30 refill 5 dx: MDD 12/12/19 22 022 Inactive Abilify 5 mg tablet RxNorm: 649771 Take 1 Tablet(s) Oral QD take 1 tab po QD #30 refill 5 dx: MDD 12/12/19 22 022 Inactive Novolog Flexpen U-100 Insulin aspart 100 unit/mL (3 mL) subcutaneous RxNorm: 2725473 Inject 42 Unit(s) Subcutaneous TID in addition to sliding scale 12/10/19 22 022 Inactive d/c 36u chlorthalidone 25 mg tablet RxNorm: 654744 Take 1 Tablet(s) Oral QAM every morning 12/10/19 22 023 Inactive pregabalin 50 mg capsule RxNorm: 007845 Take 1 Capsule(s) Oral QAM every morning 11/12/19 22 022 Inactive tetanus-diphtheria toxoids-Td 2 Lf unit-2 Lf unit/0.5 mL IM suspension RxNorm: 139 Take 0.5 Miscellaneous Intramuscular 11/12/19 22 022 Inactive need tdap - nursing to administer upon arrival pregabalin 50 mg capsule RxNorm: 826382 Take 1 Capsule(s) Oral QAM every morning 10/16/19 22 022 Inactive pregabalin 50 mg capsule RxNorm: 037767 Take 1 Capsule(s) Oral QAM every morning 10/16/19 22 Inactive pregabalin 50 mg capsule RxNorm: 885555 1 Capsule(s) Oral QAM every morning 10/15/19 22 Inactive Shingrix (PF) 50 mcg/0.5 mL intramuscular suspension, kit RxNorm: 2267805 Administer 1/2 Milliliter(s) Intramuscular one time Nursing please administer upon arrival and once administered post a bridge message with date of administration, physician office assistant, expiration date, and lot# so we can update [facility]. 10/09/19 22 022 Inactive shingrix step 1 Shingrix (PF) 50 mcg/0.5 mL intramuscular suspension, kit RxNorm: 3125840 Administer 1/2 Milliliter(s) Intramuscular one time Nursing please administer upon arrival and once administered post a bridge message with date of administration, physician office assistant, expiration date, and lot# so we [...] aspart 100 unit/mL (3 mL) subcutaneous RxNorm: 3289147 Inject 10 Unit(s) Subcutaneous QHS every night at bedtime with nighttime snack 10/08/19 22 022 Inactive Shingrix (PF) 50 mcg/0.5 mL intramuscular suspension, kit RxNorm: 9126675 ADMINISTER 2-DOSE SERIES PER CDC GUIDELINES 10/08/19 22 022 Active Shingrix (PF) 50 mcg/0.5 mL intramuscular suspension, kit RxNorm: 3862971 ADMINISTER 2-DOSE SERIES PER CDC GUIDELINES 10/08/19 22 Inactive Novolog Flexpen U-100 Insulin aspart 100 unit/mL (3 mL) subcutaneous RxNorm: 0195262 Inject 36 Unit(s) Subcutaneous TID in addition to sliding scale 10/08/19 022 Inactive cholecalciferol (vitamin D3) 1,250 mcg (50,000 unit) capsule RxNorm: 558842 Take 1 Capsule(s) Oral QW once a week 10/08/19 Inactive Novofine Autocover 30 gauge x 1/3 needle RxNorm: Use 1 Miscellaneous UD as directed Use 1 needle as directed to administer insulin 5 times a day Dx:E11.42. 10/03/19 Inactive ok to substitute with any covered alternative pen needle benzoyl peroxide 10 % topical cleanser RxNorm: 415738 Apply 1 Application Topical QD apply to face, wash rinse and dry once daily (may change to QOD if drying) 08/19/19 22 022 Inactive (%covered by insurance) #60ml refill 11 dx: acne benzoyl peroxide 10 % topical cleanser RxNorm: 587017 Apply 1 Application Topical QD apply to face, wash rinse and dry once daily (may change to QOD if drying) 08/19/19 022 Inactive (%covered by insurance) #60ml refill 11 dx: acne benzoyl peroxide 10 % topical cleanser RxNorm: 671951 Apply 1 Application Topical QD apply to face, wash rinse and dry once daily (may change to QOD if drying) 08/19/19 22 022 Inactive (%covered by insurance) #60ml refill 11 dx: acne Lyrica 50 mg capsule RxNorm: 131826 Take 1 Capsule(s) Oral QAM every morning Take 1 capsule by mouth once daily 08/19/19 22 022 Inactive benzoyl peroxide 10 % topical cleanser RxNorm: 965805 Apply 1 Application Topical QD apply to face, wash rinse and dry once daily (may change to QOD if drying) 08/19/19 22 022 Inactive (%covered by insurance) #60ml refill 11 dx: acne Lyrica 100 mg capsule RxNorm: 765158 Take 1 Capsule(s) Oral QHS every night at bedtime Take 1 capsule by mouth once daily at bedtime 08/19/19 22 022 Inactive Lyrica 100 mg capsule RxNorm: 815175 Take 1 Capsule(s) Oral QHS every night at bedtime Take 1 capsule by mouth once daily at bedtime 08/16/19 22 022 Inactive Lyrica 50 mg capsule RxNorm: 808465 Take 1 Capsule(s) Oral QAM every morning Take 1 capsule by mouth once daily 08/16/19 22 022 Inactive Levemir FlexTouch U-100 Insulin 100 unit/mL (3 mL) subcutaneous pen RxNorm: 682421 Inject 86 Unit(s) Subcutaneous BID 08/05/19 22 022 Inactive d/c 83units BID Lyrica 100 mg capsule RxNorm: 389053 Take 1 Capsule(s) Oral QHS every night at bedtime Take 1 capsule by mouth once daily at bedtime 07/14/19 22 022 Inactive Lyrica 50 mg capsule RxNorm: 369474 Take 1 Capsule(s) Oral QAM every morning Take 1 capsule by mouth once daily 07/14/19 22 022 Inactive Levemir FlexTouch U-100 Insulin 100 unit/mL (3 mL) subcutaneous pen RxNorm: 257214 Inject 83 Unit(s) Subcutaneous BID 07/08/19 22 [...] test strip hydralazine 50 mg tablet RxNorm: 476155 Take 1 Tablet(s) Oral QID 05/05/20 21 022 Inactive venlafaxine ER 225 mg tablet,extended release 24 hr RxNorm: 624064 Take 1 Tablet(s) Oral QD 05/05/20 21 021 Inactive venlafaxine ER 225 mg tablet,extended release 24 hr RxNorm: 104613 Take 1 Tablet(s) Oral QD 05/05/20 21 022 Inactive isosorbide mononitrate ER 30 mg tablet,extended release 24 hr RxNorm: 388352 Take 1 Tablet(s) Oral QD 05/05/20 21 024 Inactive hydralazine 50 mg tablet RxNorm: 438564 Take 1 Tablet(s) Oral QID 05/05/20 21 021 Inactive aspirin 81 mg tablet,delayed release RxNorm: 470445 Take 1 Tablet(s) Oral QD 03/31/20 21 022 Inactive Vitamin D2 1,250 mcg (50,000 unit) capsule RxNorm: 7272098 Take 1 Capsule(s) Oral QW once a week x 12 weeks 03/31/20 022 Inactive Vitamin D2 1,250 mcg (50,000 unit) capsule RxNorm: 5370968 Take 1 Capsule(s) Oral QW once a week 03/31/20 Inactive Zetia 10 mg tablet RxNorm: 827089 Take 1 Tablet(s) Oral QD 03/31/20 024 Inactive Zetia 10 mg tablet RxNorm: 897559 Take 1 Tablet(s) Oral QD 03/31/20 021 Inactive hydralazine 25 mg tablet RxNorm: 793001 Take 1 Tablet(s) Oral QID 03/31/20 021 Inactive hydralazine 25 mg tablet RxNorm: 676375 Take 1 Tablet(s) Oral QID 03/31/20 021 Inactive hydralazine 10 mg tablet RxNorm: 281506 Take 1 Tablet(s) Oral QID 03/03/20 021 Inactive cephalexin 500 mg tablet RxNorm: 448415 Take 1 Tablet(s) Oral QID 02/27/20 021 Inactive cephalexin 500 mg tablet RxNorm: 718136 Take 1 Tablet(s) Oral QID 02/27/20 021 Inactive lisinopril 40 mg tablet RxNorm: 015378 Take 1 Tablet(s) Oral QD 02/11/20 21 023 Inactive Eliquis 5 mg tablet RxNorm: 9497086 Take 1 Tablet(s) Oral BID 01/05/20 21 025 Inactive Eliquis 5 mg tablet RxNorm: 6346635 Take 2 Tablet(s) Oral QD 01/01/20 21 021 Inactive Lyrica 50 mg capsule RxNorm: 342768 Take 1 Capsule(s) Oral QAM every morning 12/24/19 21 021 Inactive Lyrica 100 mg capsule RxNorm: 556942 Take 1 Capsule(s) Oral QHS every night at bedtime 12/24/19 21 021 Inactive clotrimazole 1 % topical cream RxNorm: 867767 Apply to right foot and toes Topical BID 12/04/19 21 023 Inactive metoprolol succinate ER 200 mg tablet,extended release 24 hr RxNorm: 458084 Take 1 Tablet(s) Oral QD 12/04/19 21 023 Inactive ciprofloxacin 500 mg tablet RxNorm: 650839 Take 1 Tablet(s) Oral QD 11/30/19 21 021 Inactive DX ofloxacin otic drops Accu-Chek Guide test strips RxNorm: USE 1 TO CHECK GLUCOSE 4 TIMES DAILY AND NEEDED 11/15/19 21 023 Inactive Blood Glucose Test strips RxNorm: Use 1 Test Strip QID at PRN 11/05/19 21 023 Inactive E11.42 lisinopril 30 mg tablet RxNorm: 765447 Take 1 Tablet(s) Oral QD 10/30/19 21 021 Inactive lisinopril 20 mg tablet RxNorm: 184170 Take 1 Tablet(s) Oral QD 10/23/19 21 021 Inactive lisinopril 20 mg tablet RxNorm: 157622 Take 1 Tablet(s) Oral QD 10/23/19 21 021 Inactive lisinopril 10 mg tablet RxNorm: 573450 Take 1 Tablet(s) Oral QD 10/02/19 21 021 Inactive icosapent ethyl 1 gram capsule RxNorm: 0623679 Take 2 Capsule(s) (2 gm) Oral BID with meals 09/12/19 21 024 Inactive Okay to dispense one 2gm tab if you have that available. icosapent ethyl 1 gram capsule RxNorm: 8228900 Take 2 Capsule(s) Oral BID 09/12/19 21 021 Inactive Okay to dispense one 2gm tab if you have that available. amlodipine 10 mg tablet RxNorm: 287659 Take 1 Tablet(s) Oral QD 09/04/19 21 021 Inactive aspirin 81 mg tablet,delayed release RxNorm: 966296 Take 1 Tablet(s) Oral QD 09/04/19 21 021 Inactive Levemir FlexTouch U-100 Insulin 100 unit/mL (3 mL) subcutaneous pen RxNorm: 087012 Inject 150 Unit(s) Subcutaneous BID 09/04/19 022 Inactive venlafaxine ER 150 mg tablet,extended release 24 hr RxNorm: 199046 Take 1 Tablet(s) Oral QD 09/04/19 021 Inactive clotrimazole-betame thasone 1 %-0.05 % topical cream RxNorm: 559743 Apply to rash on red area on left abdomen/chest Topical BID 08/10/19 021 Inactive amlodipine 5 mg tablet RxNorm: 509300 Take 1 Tablet(s) Oral QD 07/31/19 021 Inactive cephalexin 500 mg tablet RxNorm: 379560 Take 1 Tablet(s) Oral BID BID - Twice Daily 07/31/19 021 Inactive Start 08/01/20 pantoprazole 40 mg tablet,delayed release RxNorm: 491900 Take 1 Tablet(s) Oral QAM every morning 07/08/19 025 Inactive senna 8.6 mg tablet RxNorm: 690574 Take 1 Tablet(s) Oral QD 07/08/19 025 Inactive carbamazepine 200 mg tablet RxNorm: 216421 Take 1 Tablet(s) Oral BID 07/08/19 025 Inactive clopidogrel 75 mg tablet RxNorm: 266871 Take 1 Tablet(s) Oral QD 07/08/19 021 Inactive Blood Glucose Test strips RxNorm: Use 1 Test Strip QID at PRN 07/08/19 021 Inactive E11.42 Novolog Flexpen U-100 Insulin aspart 100 unit/mL (3 mL) subcutaneous RxNorm: 2414339 Administer per sliding scale Milliliter(s) Subcutaneous TID 151-200: 10 u; 201-250: 20 u; 251-300: 30 u; 301-350: 40 u; 351-400: 50 u. 07/08/19 21 022 Inactive lisinopril 5 mg tablet RxNorm: 486634 Take 1 Tablet(s) Oral QD 07/08/19 021 Inactive Novolog Flexpen U-100 Insulin aspart 100 unit/mL (3 mL) subcutaneous RxNorm: 7650827 Inject 85 Unit(s) Subcutaneous TID 07/08/19 022 Inactive pravastatin 80 mg tablet RxNorm: 488057 Take 1 Tablet(s) Oral QHS every night at bedtime 07/08/19 023 Inactive clotrimazole 1 % topical cream RxNorm: 552314 Apply to bilateral groin areas Topical BID 07/08/19 022 Inactive metoprolol succinate ER 200 mg tablet,extended release 24 hr RxNorm: 145819 Take 1 Tablet(s) Oral QD 07/08/19 21 021 Inactive Vitamin D3 25 mcg (1,000 unit) tablet RxNorm: 228741 Take 1 Tablet(s) Oral QD 07/08/19 021 Inactive isosorbide dinitrate 30 mg tablet RxNorm: 693371 Take 1 Tablet(s) Oral QD 07/08/19 021 Inactive Levemir FlexTouch U-100 Insulin 100 unit/mL (3 mL) subcutaneous pen RxNorm: 980053 Inject 140 Unit(s) Subcutaneous BID 07/08/19 021 Inactive torsemide 20 mg tablet RxNorm: 576368 Take 1 Tablet(s) Oral QD 07/08/19 023 Inactive venlafaxine 75 mg tablet RxNorm: 792084 Take 1 Tablet(s) Oral QD 07/08/19 021 Inactive acetaminophen 500 mg tablet RxNorm: 186633 Take 1 Tablet(s) Oral TID as needed for headache 06/18/19 021 Inactive acetaminophen 500 mg tablet RxNorm: 737115 Take 1 Tablet(s) Oral TID as needed for headache 06/18/19 021 Inactive Lyrica 100 mg capsule RxNorm: 733454 Take 1 Capsule(s) Oral QHS every night at bedtime 06/11/19 021 Inactive Lyrica 50 mg capsule RxNorm: 372095 Take 1 Capsule(s) Oral QAM every morning 06/10/19 21 021 Inactive hydrocortisone 2.5 % topical cream RxNorm: 434191 Apply to bilateral groin creases Topical BID 05/15/20 20 021 Inactive clotrimazole 1 % topical cream RxNorm: 676455 Apply to bilateral groin areas Topical BID 05/15/20 20 021 Inactive Lyrica 50 mg capsule RxNorm: 827393 Take 1 Capsule(s) Oral QAM every morning 05/14/20 20 020 Inactive Lyrica 100 mg capsule RxNorm: 516751 Take 1 Capsule(s) Oral QHS every night [...] Inactive Nystop 100,000 unit/gram topical powder RxNorm: 162495 Apply to abd folds, under breasts and L side of groin Topical BID x 14 days, then BID PRN 04/08/20 20 020 Inactive dx: yeast dermatitis Lyrica 100 mg capsule RxNorm: 911231 Take 1 Capsule(s) Oral QHS every night at bedtime 03/13/20 20 020 Inactive Lyrica 50 mg capsule RxNorm: 470105 Take 1 Capsule(s) Oral QAM every morning 03/13/20 20 020 Inactive ketoconazole 2 % shampoo RxNorm: 534139 Apply Topical two times a week with showers 03/11/20 20 024 Inactive cholecalciferol (vitamin D3) 50 mcg (2,000 unit) tablet RxNorm: 795587 Take 1 Tablet(s) Oral QD 03/11/20 021 Inactive Zetia 10 mg tablet RxNorm: 480574 Take 1 Tablet(s) Oral QD 03/07/20 021 Inactive Zetia 10 mg tablet RxNorm: 128800 Take 1 Tablet(s) Oral QD 03/07/20 Inactive Lyrica 50 mg capsule RxNorm: 959237 Take 1 Capsule(s) Oral QAM every morning 02/15/20 Inactive Lyrica 100 mg capsule RxNorm: 337889 Take 1 Capsule(s) Oral QHS every night at bedtime 02/15/20 Inactive Lyrica 100 mg capsule RxNorm: 976885 Take 1 Capsule(s) Oral QHS every night at bedtime 02/15/20 Inactive Lyrica 50 mg capsule RxNorm: 631188 Take 1 Capsule(s) Oral QAM every morning 02/15/20 Inactive metoprolol succinate ER 200 mg tablet,extended release 24 hr RxNorm: 868255 Take 1 Tablet(s) Oral QD 08/12/19 025 Inactive loperamide 2 mg capsule RxNorm: 977981 Take 1 Capsule(s) Oral QID as needed 09/06/19 025 Inactive hydralazine 50 mg tablet RxNorm: 038269 Take 1 Tablet(s) Oral QID 08/12/19 025 Inactive Soft Touch Lancets RxNorm: miscellaneous 03/04/20 24 025 Inactive venlafaxine ER 75 mg capsule,extended release 24 hr RxNorm: 966109 Take 3 Capsule(s) Oral QD 06/12/19 22 023 Inactive polyethylene glycol 3350 17 gram/dose oral powder RxNorm: 283275 Take 17=1 capful Gram(s) Oral BID as needed mix with 4-8oz of liquid 06/12/19 22 024 Inactive icosapent ethyl 1 gram capsule RxNorm: 1718435 Take 2 Capsule(s) (2 gm) Oral BID with meals 10/07/19 23 023 Inactive Okay to dispense one 2gm tab if you have that available. Levemir FlexTouch U-100 Insulin 100 unit/mL (3 mL) subcutaneous pen RxNorm: 362854 Inject 80 Unit(s) Subcutaneous BID 07/14/19 23 023 Inactive Novolog Flexpen U-100 Insulin aspart 100 unit/mL (3 mL) subcutaneous RxNorm: 6317890 Insert 30 Unit(s) Subcutaneous TID with meals [...] Procedures Procedure Codes Date Toenail Debridement CPT-4: 90712 04/11/2024 Vital Signs Date Vital 04/11/2024 Blood [...] Encounter Performer Location Location Address Codes Date ([address]) Home or Residence Visit Est Pt - Moderate Level, 40 mins Diagnosis: Hyperlipidemia associated with type 2 diabetes mellitus[ICD10: E11.69] Diagnosis: Type 2 diabetes mellitus with diabetic polyneuropathy, with long-term current use of insulin[ICD10: E11.42] Diagnosis: Stage 2 chronic 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[ICD10: E11.22] Diagnosis: Hypertensive heart disease without heart failure[ICD10: I11.9] Diagnosis: Hemorrhoids[ICD10: K64.9] Diagnosis: Onychogryposis[ICD10: L60.2] Harrison Munson [facility] [place] on [address] [address] CPT-4: 09923 04/11/2024 Plan of Care Planned Activity Notes Codes Status Date Referral: [facility] [address] [id number] [place] Referral Appointment Scheduled 10/20/[address]: [facility]/Endocrinology WPtel: [phone] [place] Referral No Records Received 07/10/2024 Appointment: Brian Munson [place]: [id number] [place] AWV 02/08/2024 Appointment: Brian Munson [place]: [id number] [place] F/U 01/11/2024 Appointment: Sandra Clark WPtel: [address] [facility] [address] [id number] [place] Telehealth Psych Follow Up 12/09 Appointment: Tapan Shirley WPtel: [address] [facility] [address] [id number] [place] TCM 10/26/2022 Referral: [facility] WPtel: [phone] , [address] [id number] Referral Records Received 09/21/2022 Appointment: Tapan Shirley WPtel: [address] [facility] [address] [id number] [place] F/U 08/11/2022 Appointment: Tapan Shirley WPtel: [address] [facility] 300 [id number] [place] F/U 07/14/2022 Appointment: Tapan Shirley WPtel: [address] [facility] 300 [id number] [place] F/U 02/10/2022 Referral: [facility] WPtel: [phone] [facility] [address] [id number] [place] Referral Completed 05/28/2021 Referral: General Cardiology Referral Complet ed 01/03/2021 Referral: General Psychologist Referral Close d Referral: General Psychiatrist Referral Patient/Family Scheduling Appointment Referral: General Physical Medicine Referral Facility Scheduling Appointment Instructions Comment Date eLonid is a Male being seen living at [...] Sister Jyotsna involved in his care cell# [phone] Guardian: Giulia (tapan met in person 09/01/21), now has Lexii (same group as giulia)AWV 9.24.2023. Lab Schedule: Mar-/September*September (CBC with diff, CMP, [...] 500 insulin 06/12/2024 Hypertensive heart disease w [facility] heart failure Significant anti-hypertensives on board. Blood pressure at goal today. Treatment for HDL and DM in place. Denies S&S - discussed in HPI. Labs [...] 40 mEq BID. Torsemide 20 mg QD. Hemorrhoids Not currently bleeding. Encouraged to not spend a lot of time sitting on the toilet. Patient does sit all day long in his recliner. June appointment for Rectal and Colon Surgery. Type 2 diabetes mellitus with diabetic polyneuropathy, with long-term current use of insulin [facility] manages his diabetes. Uses the freestyle chema BG checks QID. Basaglar 40 units subq BID. Humulin R 100 units subq TID/with meals. Follows with endocrinology every six months. No A1c result in last endocrinology note. *requested most recent note and labs from [facility]. Would like to order A1c for review - if not drawn when at [facility] last week. Healthy dietary intake is important. Physical activity is also very important for overall health. Walk after reach meal/snack even if a small walk in the basement that he can tolerate is helpful. Onychogryposis 6 toenails trimmed today. No signs of infection or ingrown toenails today. Nursing will make appointment with [facility] for further support. Hyperlipidemia associated with type 2 diabetes mellitus Lipid panel due this month High amounts of insulin prescribed by his brake rider who manages his diabetes Elevated BG can lead to elevated lipid panel results Poor dietary intake; I have observed meals made from him by facility staff and they are high in carbohydrates and fat content. Also has bags of snacks in his room like chips. Continue Vascepa 2 grams PO BID, Rosuvastatin 40 mg PO QD. Ezeetimine 10 mg PO QD. Stage 2 chronic 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 Awaiting endocrinology note and lab work results. Will order BMP for review this month if not already drawn by brake rider. Co- morbidity treatment: hypertension, hyperlipidemia, and diabetes. . 04/11/2024
--- OUTSIDE RECORDS SUMMARY | 2024-10-19 19:22 | XMS_ITS | CCD ---
Author Name Cecilio Durham Address [address] [place] [address] Phone Organization [facility] Phone Care Team Providers Care Scientist Electronics Name Role Phone Harrison Durham Primary Care Provider Leona vailable Unavailable Chronic Care Management Unavaila ble Summary Purpose DataExchange Insurance Providers Payer name Policy type / Coverage type Covered alliance party ID Effective Begin Date Effective End Date Medicare [place] Medicare Part B [id number] Unknown Unknown [place] B [id number] Unknown Unknown Family history Sister Brittany Suggs Diagnosis Age At Onset No Family Disease Entered N/A Runs in the family Diagnosis Age At Onset No Known Diseases N/A Sister Blanka Mcduffie Diagnosis Age At Onset No Family Disease Entered N/A Social History Social History Element Codes Description Effec tive Dates Tobacco history SNOMED CT: 485573477 Never smoker 01/16 Sexually Active? Unknown No [...] 10/07/2021 Living arrangements Unknown Halfway 09/03/[address]: 679267612 No Alcohol Consum ption 09/02/2020 Allergies, Adverse Reactions, Alerts Substance Reaction Codes Entered Date Inactivated Date Status * NO KNOWN FOOD ALLERGIES Unknown 07/13/2023 No Inactive Date Active LISINOPRIL RxNorm: 19834 02/12/2020 No Inactive Da te Active Metformin [...] Instructions nystatin 100,000 unit/gram topical powder RxNorm: 524672 Apply 1 Application Topical BID as needed abdominal/breast /groin folds 04/11/20 24 024 Inactive chlorthalidone 25 mg tablet RxNorm: 150648 Take 1 Tablet(s) Oral QAM every morning 04/06/20 24 No Stop Date Active pregabalin 150 mg capsule RxNorm: 767423 Take 1 Capsule(s) Oral QHS every night at bedtime 03/31/20 24 024 Inactive Vascepa 1 gram capsule RxNorm: 2046254 Take 2 Capsule(s) Oral BID 03/30/20 24 025 Active rosuvastatin 40 mg tablet RxNorm: 926009 1 TAB ORALLY EVERY EVENING (DX:CORONARY ARTERY DISEASE) 03/28/20 No Stop Date Active venlafaxine ER 75 mg capsule,extended release 24 hr RxNorm: 642748 3 CAPS (225MG) ORALLY DAILY (DX: MOOD DISORDER) 03/28/20 No Stop Date Active pregabalin 100 mg capsule RxNorm: 871738 Take 1 Capsule(s) Oral QAM every morning 03/20/20 Inactive cholecalciferol (vitamin D3) 1,250 mcg (50,000 unit) capsule RxNorm: 373835 Take 1 Capsule(s) Oral QW once a [...] Insulin 100 unit/mL (3 mL) subcutaneous RxNorm: 2008047 Inject 40 Unit(s) Subcutaneous BID 03/07/20 025 Inactive Please dispense one month supply. Humulin R U-500 (Concentrated) Insulin 500 unit/mL subcutaneous soln RxNorm: 391561 Inject 100 Unit(s) Subcutaneous AC before meals [...] PRN) to be use with new Accu [place] meter 03/04/20 Inactive ok to substitute with any covered alternative test strip FreeStyle Chema 2 Sensor kit RxNorm: Use UD as directed 03/02/20 025 Inactive FreeStyle Chema 2 Sensor kit RxNorm: Use UD as directed 03/02/20 Inactive Pen Needle 30 gauge x 516 RxNorm: Pen(s) Use 1 needle as directed TID 03/02/20 Inactive nystatin 100,000 unit/gram topical powder RxNorm: 324724 Apply 1 Application Topical BID as needed [...] (Concentrated) Insulin 500 unit/mL subcutaneous soln RxNorm: 874940 Inject 100 Unit(s) Subcutaneous TID 02/17/20 24 024 Inactive Humulin R U-500 (Concentrated) Insulin 500 unit/mL subcutaneous soln RxNorm: 906586 Inject 100 Unit(s) Subcutaneous TID 02/10/20 24 024 Inactive Basaglar KwikPen U-100 Insulin 100 unit/mL (3 mL) subcutaneous RxNorm: 1167624 Inject 30 Unit(s) Subcutaneous BID 02/10/20 24 024 Inactive Please dispense one month supply. pregabalin 100 mg capsule RxNorm: 891182 Take 1 Capsule(s) Oral QAM every morning 02/07/20 24 024 Inactive isosorbide mononitrate ER 60 mg tablet,extended release 24 hr RxNorm: 164637 Take 1 Tablet(s) Oral QD 02/01/20 24 Active aripiprazole 15 mg tablet RxNorm: 311542 Take 1/2 Tablet(s) Oral QD 02/01/20 24 Active torsemide 20 mg tablet RxNorm: 206643 1 TAB ORALLY DAILY (DX: EDEMA) 01/27/20 No Stop Date Active potassium chloride ER 20 mEq tablet,extended release(part/cryst) RxNorm: 1613142 2 TABS (40MEQ) ORALLY TWICE DAILY (DX: HYPOKALEMIA) 01/27/20 24 025 Inactive cephalexin 500 mg capsule RxNorm: 333098 Take 1 Capsule(s) Oral QID 12/17/19 24 024 Inactive cephalexin 500 mg capsule RxNorm: 563696 Take 1 Capsule(s) Oral QID 12/17/19 24 024 Inactive acetaminophen 500 mg tablet RxNorm: 913888 (MAX APAP:4GM/24HR) Take 1 Tablet(s) Oral TID as needed for pain 12/10/19 24 024 Inactive torsemide 20 mg tablet RxNorm: 283265 Take 1 Tablet(s) Oral QD 10/26/19 24 Inactive potassium chloride ER 20 mEq tablet,extended release RxNorm: 888086 Take 2 Tablet(s) Oral BID 10/26/19 24 025 Inactive torsemide 20 mg tablet RxNorm: 986032 Take 1 Tablet(s) Oral QD 10/26/19 24 024 Inactive potassium chloride ER 20 mEq tablet,extended release RxNorm: 234715 Take 2 Tablet(s) Oral BID 10/26/19 24 024 Inactive Artificial Tears (PF) 0.1 %-0.3 % drops in a dropperette RxNorm: 967142 Apply 1-2 Drop(s) Both eyes BID as needed 09/28/19 24 Inactive erythromycin 5 mg/gram (0.5 %) eye ointment RxNorm: 848617 Apply 1 Application Both eyes QHS every night at bedtime Instill ~1 cm ribbon into affected eye 09/28/19 24 024 Inactive Artificial Tears (PF) 0.1 %-0.3 % drops in a dropperette RxNorm: 785726 Apply 1-2 Drop(s) Both eyes BID as needed 09/28/19 24 024 Inactive erythromycin 5 mg/gram (0.5 %) eye ointment RxNorm: 164878 Apply 1 Application Both eyes QHS every night at bedtime Instill ~1 cm ribbon into affected eye 09/28/19 24 024 Inactive acetaminophen 500 mg tablet RxNorm: 995112 (MAX APAP:4GM/24HR) Take 1 Tablet(s) Oral TID as needed for pain 09/24/19 24 024 Inactive carvedilol 25 mg tablet RxNorm: 855198 Take 1 Tablet(s) Oral QD 09/08/19 No Stop Date Active pregabalin 100 mg capsule RxNorm: 967096 Take 1 Capsule(s) Oral QAM every morning 09/07/19 24 024 Inactive ezetimibe 10 mg tablet RxNorm: 087295 Take 1 Tablet(s) Oral QD 07/13/19 24 025 Inactive bisacodyl 10 mg rectal suppository RxNorm: 252260 Insert 1 Suppository Rectal QD as needed 07/13/19 No Stop Date Active polyethylene glycol 3350 17 gram/dose oral powder RxNorm: 302755 Take 17 Gram(s) Oral BID as needed mix in 4-8ox water 07/13/19 24 025 Inactive ketoconazole 2 % shampoo RxNorm: 903637 Apply 1 Application Topical UD as directed 07/13/19 No Stop Date Active Ozempic 1 mg/dose (4 mg/3 mL) subcutaneous pen injector RxNorm: 2252767 Inject 1 Milligram(s) Subcutaneous QW once a week 07/13/19 No Stop Date Active Guaifenesin AC 10 mg-100 mg/5 mL oral liquid RxNorm: 572303 Take 10 Milliliter(s) Oral Q4H every four hours as needed 07/13/19 No Stop Date Active ammonium lactate 12 % topical cream RxNorm: 816319 Apply 1 Application Topical BID 07/13/19 24 025 Inactive hydrocortisone 2.5 % topical cream RxNorm: 849219 Apply 1 Application Topical BID as needed 07/13/19 No Stop Date Active rosuvastatin 20 mg sprinkle capsule RxNorm: 9105935 Take 1 Capsule(s) Oral QD 07/13/19 24 025 Inactive rosuvastatin 40 mg tablet RxNorm: 451958 Take 1 Tablet(s) Oral QPM every evening 07/13/19 24 024 Inactive aripiprazole 15 mg tablet RxNorm: 605200 Take 1/2 Tablet(s) Oral QD 07/13/19 24 024 Inactive isosorbide mononitrate ER 60 mg tablet,extended release 24 hr RxNorm: 160745 Take 1 Tablet(s) Oral QD 07/13/19 24 024 Inactive Vascepa 1 gram capsule RxNorm: 2774167 Take 2 Capsule(s) Oral BID 07/13/19 24 024 Inactive venlafaxine ER 75 mg capsule,extended release 24 hr RxNorm: 728336 Take 3 Capsule(s) Oral QD 07/13/19 24 024 Inactive Basaglar KwikPen U-100 Insulin 100 unit/mL (3 mL) subcutaneous RxNorm: 5924152 Inject 30U SubQ twice daily 07/07/19 24 024 Inactive Please dispense one month supply. Basaglar KwikPen U-100 Insulin 100 unit/mL (3 mL) subcutaneous RxNorm: 9544924 Inject 30U SubQ twice daily 07/07/19 24 024 Inactive Please dispense one month supply. pregabalin 150 mg capsule RxNorm: 452751 Take 1 Capsule(s) Oral QHS every night at bedtime 07/05/19 24 024 Inactive pregabalin 150 mg capsule RxNorm: 146125 Take 1 Capsule(s) Oral QHS every night at bedtime 07/05/19 24 024 Inactive polyethylene glycol 3350 17 gram/dose oral powder RxNorm: 630993 Take 1 Packet Oral QD as needed (1 packet = 17g) mix with 4-8oz of liquid 06/15/19 024 Inactive bisacodyl 10 mg rectal suppository RxNorm: 970871 Insert one suppository per rectum once daily as needed for constipation 06/15/19 024 Inactive bisacodyl 10 mg rectal suppository RxNorm: 841973 Insert one suppository per rectum once daily as needed for constipation 06/15/19 024 Inactive pregabalin 100 mg capsule RxNorm: 136966 Take 1 Capsule(s) Oral QAM every morning 04/27/20 024 Inactive Levemir FlexPen 100 unit/mL (3 mL) solution subcutaneous insulin pen RxNorm: 339299 Inject 30 Unit(s) Subcutaneous BID 04/27/20 024 Inactive rosuvastatin 40 mg tablet RxNorm: 855966 Take 1 Tablet(s) Oral QPM every evening 04/16/20 024 Inactive D/C rosuvastatin 20mg venlafaxine ER 75 mg capsule,extended release 24 hr RxNorm: 488005 Take 3 Capsule(s) Oral QD 04/14/20 023 Inactive pregabalin 100 mg capsule RxNorm: 537044 Take 1 Capsule(s) Oral QAM every morning [...] strip clotrimazole 1 % topical cream RxNorm: 193347 Take apply topically to abdominal folds twice daily for 14 days 03/12/20 024 Inactive Ozempic 1 mg/dose (4 mg/3 mL) subcutaneous pen injector RxNorm: 1806330 Inject 1 Milligram(s) Subcutaneous QW once a week 03/11/20 23 023 Inactive rosuvastatin 20 mg tablet RxNorm: 144706 Take 1 Tablet(s) Oral QD 02/26/20 23 023 Inactive d/c pravastatin 80mg Ozempic 1 mg/dose (4 mg/3 mL) subcutaneous pen injector RxNorm: 7956610 Inject 1 Milligram(s) Subcutaneous QW once a week 02/20/20 23 023 Inactive pregabalin 150 mg capsule RxNorm: 487184 Take 1 Capsule(s) Oral HS at bed time 02/19/20 23 023 Inactive pregabalin 100 mg capsule RxNorm: 242209 Take 1 Capsule(s) Oral QAM every morning 02/18/20 023 Inactive venlafaxine ER 75 mg capsule,extended release 24 hr RxNorm: 558726 Take 3 Capsule(s) Oral QD 02/04/20 023 Inactive FreeStyle Chema 2 Sensor kit RxNorm: use as directed 02/04/20 23 023 Inactive FreeStyle Chema 2 Sensor kit RxNorm: use as directed 02/04/20 23 024 Inactive fluconazole 150 mg tablet RxNorm: 459030 Take 1 Tablet(s) Oral on day 3 and on day 6 02/03/20 23 024 Inactive venlafaxine ER 150 mg capsule,extended release 24 hr RxNorm: 282531 Take 1 Capsule(s) Oral QD 02/03/20 23 023 Inactive chlorthalidone 25 mg tablet RxNorm: 745225 Take 1 Tablet(s) Oral QAM every morning 02/03/20 23 024 Inactive acetaminophen 500 mg tablet RxNorm: 641548 1 TABLET ORALLY 3 TIMES DAILY (MAX APAP:4GM/24HR) 12/15/19 23 023 Inactive clotrimazole 1 % topical cream RxNorm: 344108 apply 1g topically to top of feet and in between toes BID 12/09/19 23 025 Inactive potassium chloride ER 20 mEq tablet,extended release RxNorm: 014792 Take 1 Tablet(s) Oral BID 12/09/19 024 Inactive d/c 20mEq once daily (sent from hospital) nystatin 100,000 unit/gram topical powder RxNorm: 133326 APPLY TO AFFECTED AREAS TOPICALLY 2 TIMES DAILY 11/21/19 23 023 Inactive Nystop 100,000 unit/gram topical powder RxNorm: 258214 Apply to abd folds, under breasts and L side of groin Topical BID x 14 days, then BID PRN 11/20/19 023 Inactive dx: yeast dermatitis [place] Ultra Strength 4 %-30 %-10 % topical cream RxNorm: 453727 Apply 1 Gram(s) Topical QID PRN to feet and legs for neuropathic pain 11/11/19 024 Inactive clotrimazole 1 % topical cream RxNorm: 743591 Apply 1/2 Gram(s) Topical BID Apply to affected areas of groin, periarea, and abdominal topically 2 times daily 11/10/19 023 Inactive hydrocortisone 2.5 % topical cream RxNorm: 943062 Apply 1/2 Gram(s) Topical BID as needed 11/10/19 024 Inactive Levemir FlexPen 100 unit/mL (3 mL) solution subcutaneous insulin pen RxNorm: 290947 Inject 30 Unit(s) Subcutaneous BID 10/07/19 023 Inactive Humulin R U-500 (Concentrated) Insulin 500 unit/mL subcutaneous soln RxNorm: 245834 Inject 100 Unit(s) Subcutaneous TID 10/07/19 024 Inactive Ozempic 0.25 mg or 0.5 mg (2 mg/3 mL) subcutaneous pen injector RxNorm: 5829474 Inject 1/2 Milligram(s) Subcutaneous QW once a week 10/07/19 024 Inactive aripiprazole 15 mg tablet RxNorm: 077927 1/2 TAB (7.5MG) ORALLY DAILY (DX:MAJOR DEPRESSIVE DISORDER) 09/23/19 023 Inactive Accu-Chek Guide test strips RxNorm: Use 1 Test Strip QID 09/15/19 23 023 Inactive ok to substitute with any covered alternative test strip Lancets,Thin 28 gauge RxNorm: Use 1 as directed QID 09/15/19 23 023 Inactive torsemide 20 mg tablet RxNorm: 532828 Take 1 Tablet(s) Oral BID 09/09/19 23 024 Inactive d/c once daily dosing carvedilol 25 mg tablet RxNorm: 662947 Take 1 Tablet(s) Oral QD 08/25/19 23 024 Inactive pregabalin 150 mg capsule RxNorm: 705167 1 Capsule(s) Oral HS at bed time 08/18/19 23 023 Inactive pregabalin 100 mg capsule RxNorm: 207979 1 Capsule(s) Oral QAM every morning 08/18/19 23 023 Inactive carvedilol 25 mg tablet RxNorm: 914127 1 Tablet(s) Oral QD 07/28/19 23 023 Inactive lisinopril 20 mg tablet RxNorm: 828704 Give 1 Tablet(s) Oral QD 07/28/19 23 023 Inactive Lyrica 150 mg capsule RxNorm: 607612 Take 1 Capsule(s) Oral QHS every night at bedtime 07/19/19 23 023 Inactive d/c 100mg dose Diflucan 150 mg tablet RxNorm: 538570 Take 1 Tablet(s) Oral QD repeat on day 3 and 6 07/19/19 23 023 Inactive pregabalin 100 mg capsule RxNorm: 802485 Take 1 Capsule(s) Oral QAM every morning 07/19/19 23 023 Inactive gatifloxacin 0.5 % eye drops RxNorm: 786532 Instill 1 Drop(s) as directed TID Instill 1 drop in to affected eye(s) starting 1 day prior to surgery and continue until gone (do not exceed 4 weeks). 07/13/19 23 023 Inactive carvedilol 25 mg tablet RxNorm: 612431 2 Tablet(s) Oral BID 07/13/19 23 023 Inactive Humulin R Regular U-100 Insulin 100 unit/mL injection solution RxNorm: 473959 85 Unit(s) Injection TID 07/13/19 23 023 Inactive ketorolac 0.5 % eye drops RxNorm: 011447 Instill 1 Drop(s) as directed QID Instill 1 drop into affected eye(s) 4 times daily starting 1 day prior to surgery and continue until gone (do not exceed 4 weeks). 07/13/19 23 023 Inactive Diflucan 150 mg tablet RxNorm: 166646 Take 1 Tablet(s) Oral QD repeat on day 3 and 6 06/30/19 23 023 Inactive Accu-Chek Guide test strips RxNorm: Use 1 Test Strip QID Use 1 test strip to monitor blood glucose 4 times daily and as needed. Dx:E11.42. 06/23/19 23 023 Inactive ok to substitute with any covered alternative test strip dextromethorphan-gu aifenesin 10 mg-100 mg/5 mL oral liquid RxNorm: 696402 Take 10 Milliliter(s) Oral every 4 hours as needed for cough 06/19/19 23 023 Inactive dextromethorphan-gu aifenesin 10 mg-100 mg/5 mL oral liquid RxNorm: 926374 Take 10 Milliliter(s) Oral every 4 hours as needed for cough 06/19/19 23 023 Inactive Lyrica 150 mg capsule RxNorm: 737180 Take 1 Capsule(s) Oral QHS every night at bedtime 06/18/19 23 023 Inactive d/c 100mg dose aripiprazole 15 mg tablet RxNorm: 049317 /2 TAB (7.5MG) ORALLY DAILY (DX:MAJOR DEPRESSIVE DISORDER) 06/05/19 23 023 Inactive pregabalin 100 mg capsule RxNorm: 660441 1 Capsule(s) Oral QAM every morning 06/02/19 23 023 Inactive Banophen 50 mg capsule RxNorm: 0512301 Take 1 Capsule(s) Oral Q6H every 6 hours as needed 05/19/19 23 No Stop Date Active Novolog Flexpen U-100 Insulin aspart 100 unit/mL (3 mL) subcutaneous RxNorm: 5389120 Inject 10 Unit(s) Subcutaneous QHS every night at bedtime with nighttime snack 04/08/20 Inactive Novolog Flexpen U-100 Insulin aspart 100 unit/mL (3 mL) subcutaneous RxNorm: 7760110 Inject 42 Unit(s) Subcutaneous TID in addition to sliding scale 04/08/20 Inactive d/c 36u albuterol sulfate HFA 90 mcg/actuation aerosol inhaler RxNorm: 7447935 Take 2 Puff(s) Inhalation Q4H every four hours as needed as needed for SOB, cough, or wheezing 04/07/20 030 Active Banophen 50 mg capsule RxNorm: 2568253 Take 1 Capsule(s) Oral Q6H every 6 hours as needed 04/06/20 023 Inactive diphenhydramine 50 mg tablet RxNorm: 7342584 Take 1 Tablet(s) Oral Q6H every 6 hours as needed 04/06/20 022 Inactive diphenhydramine 50 mg tablet RxNorm: 5765722 1 Tablet(s) Oral Q6H every 6 hours as needed 04/06/20 022 Inactive Abilify 15 mg tablet RxNorm: 675043 1/2 Tablet(s) Oral QD 03/10/20 023 Inactive Shingrix (PF) 50 mcg/0.5 mL intramuscular suspension, kit RxNorm: 4208290 Administer 1/2 Milliliter(s) Intramuscular QD one time shingrix step 2 ( step 1 given 11/04/21) WITH needle - Nursing please administer upon arrival and once administered post a bridge message with date of administration, legal document assistant, expiration date, and lot# so we can update [facility] 02/18/20 22 022 Inactive dispense with needle Shingrix (PF) 50 mcg/0.5 mL intramuscular suspension, kit RxNorm: 9229369 Administer 1/2 Milliliter(s) Intramuscular QD one time shingrix step 2 ( step 1 given 11/04/21) WITH needle - Nursing please administer upon arrival and once administered post a bridge message with date of administration, legal document assistant, expiration date, and lot# so we can update [facility] 02/18/20 22 022 Inactive dispense with needle polyethylene glycol 3350 17 gram/dose oral powder RxNorm: 078867 Take 17=1 capful Gram(s) Oral QD mix with 4-8oz of liquid 01/08/20 22 025 Inactive take this in addition to BID prn order Lyrica 100 mg capsule RxNorm: 719712 Take 1 Capsule(s) Oral QAM every morning 01/08/20 22 022 Inactive d/c 50mg dose acetaminophen 500 mg tablet RxNorm: 362474 Take 1 Tablet(s) Oral TID 01/08/20 22 022 Inactive d/c PRN order Lyrica 150 mg capsule RxNorm: 247603 Take 1 Capsule(s) Oral QHS every night at bedtime 01/08/20 22 023 Inactive d/c 100mg dose Abilify 5 mg tablet RxNorm: 934562 Take 1 Tablet(s) Oral QD take 1 tab po QD #30 refill 5 dx: MDD 12/12/19 22 022 Inactive Abilify 5 mg tablet RxNorm: 332817 Take 1 Tablet(s) Oral QD take 1 tab po QD #30 refill 5 dx: MDD 12/12/19 22 022 Inactive Novolog Flexpen U-100 Insulin aspart 100 unit/mL (3 mL) subcutaneous RxNorm: 7762273 Inject 42 Unit(s) Subcutaneous TID in addition to sliding scale 12/10/19 22 022 Inactive d/c 36u chlorthalidone 25 mg tablet RxNorm: 587309 Take 1 Tablet(s) Oral QAM every morning 12/10/19 22 023 Inactive pregabalin 50 mg capsule RxNorm: 189669 Take 1 Capsule(s) Oral QAM every morning 11/12/19 22 022 Inactive tetanus-diphtheria toxoids-Td 2 Lf unit-2 Lf unit/0.5 mL IM suspension RxNorm: 139 Take 0.5 Miscellaneous Intramuscular 11/12/19 22 022 Inactive need tdap - nursing to administer upon arrival pregabalin 50 mg capsule RxNorm: 549846 Take 1 Capsule(s) Oral QAM every morning 10/16/19 22 022 Inactive pregabalin 50 mg capsule RxNorm: 073989 Take 1 Capsule(s) Oral QAM every morning 10/16/19 22 Inactive pregabalin 50 mg capsule RxNorm: 951234 1 Capsule(s) Oral QAM every morning 10/15/19 22 Inactive Shingrix (PF) 50 mcg/0.5 mL intramuscular suspension, kit RxNorm: 2033854 Administer 1/2 Milliliter(s) Intramuscular one time Nursing please administer upon arrival and once administered post a bridge message with date of administration, legal document assistant, expiration date, and lot# so we can update [facility]. 10/09/19 22 022 Inactive shingrix step 1 Shingrix (PF) 50 mcg/0.5 mL intramuscular suspension, kit RxNorm: 3878960 Administer 1/2 Milliliter(s) Intramuscular one time Nursing please administer upon arrival and once administered post a bridge message with date of administration, legal document assistant, expiration date, and lot# so we [...] aspart 100 unit/mL (3 mL) subcutaneous RxNorm: 1700066 Inject 10 Unit(s) Subcutaneous QHS every night at bedtime with nighttime snack 10/08/19 22 022 Inactive Shingrix (PF) 50 mcg/0.5 mL intramuscular suspension, kit RxNorm: 6519830 ADMINISTER 2-DOSE SERIES PER CDC GUIDELINES 10/08/19 22 022 Active Shingrix (PF) 50 mcg/0.5 mL intramuscular suspension, kit RxNorm: 2599083 ADMINISTER 2-DOSE SERIES PER CDC GUIDELINES 10/08/19 22 Inactive Novolog Flexpen U-100 Insulin aspart 100 unit/mL (3 mL) subcutaneous RxNorm: 9126700 Inject 36 Unit(s) Subcutaneous TID in addition to sliding scale 10/08/19 022 Inactive cholecalciferol (vitamin D3) 1,250 mcg (50,000 unit) capsule RxNorm: 371369 Take 1 Capsule(s) Oral QW once a week 10/08/19 Inactive Novofine Autocover 30 gauge x 1/3 needle RxNorm: Use 1 Miscellaneous UD as directed Use 1 needle as directed to administer insulin 5 times a day Dx:E11.42. 10/03/19 Inactive ok to substitute with any covered alternative pen needle benzoyl peroxide 10 % topical cleanser RxNorm: 621172 Apply 1 Application Topical QD apply to face, wash rinse and dry once daily (may change to QOD if drying) 08/19/19 22 022 Inactive (%covered by insurance) #60ml refill 11 dx: acne benzoyl peroxide 10 % topical cleanser RxNorm: 332486 Apply 1 Application Topical QD apply to face, wash rinse and dry once daily (may change to QOD if drying) 08/19/19 022 Inactive (%covered by insurance) #60ml refill 11 dx: acne benzoyl peroxide 10 % topical cleanser RxNorm: 342525 Apply 1 Application Topical QD apply to face, wash rinse and dry once daily (may change to QOD if drying) 08/19/19 22 022 Inactive (%covered by insurance) #60ml refill 11 dx: acne Lyrica 50 mg capsule RxNorm: 229462 Take 1 Capsule(s) Oral QAM every morning Take 1 capsule by mouth once daily 08/19/19 22 022 Inactive benzoyl peroxide 10 % topical cleanser RxNorm: 936929 Apply 1 Application Topical QD apply to face, wash rinse and dry once daily (may change to QOD if drying) 08/19/19 22 022 Inactive (%covered by insurance) #60ml refill 11 dx: acne Lyrica 100 mg capsule RxNorm: 292022 Take 1 Capsule(s) Oral QHS every night at bedtime Take 1 capsule by mouth once daily at bedtime 08/19/19 22 022 Inactive Lyrica 100 mg capsule RxNorm: 354419 Take 1 Capsule(s) Oral QHS every night at bedtime Take 1 capsule by mouth once daily at bedtime 08/16/19 22 022 Inactive Lyrica 50 mg capsule RxNorm: 100240 Take 1 Capsule(s) Oral QAM every morning Take 1 capsule by mouth once daily 08/16/19 22 022 Inactive Levemir FlexTouch U-100 Insulin 100 unit/mL (3 mL) subcutaneous pen RxNorm: 856186 Inject 86 Unit(s) Subcutaneous BID 08/05/19 22 022 Inactive d/c 83units BID Lyrica 100 mg capsule RxNorm: 960317 Take 1 Capsule(s) Oral QHS every night at bedtime Take 1 capsule by mouth once daily at bedtime 07/14/19 22 022 Inactive Lyrica 50 mg capsule RxNorm: 594078 Take 1 Capsule(s) Oral QAM every morning Take 1 capsule by mouth once daily 07/14/19 22 022 Inactive Levemir FlexTouch U-100 Insulin 100 unit/mL (3 mL) subcutaneous pen RxNorm: 332824 Inject 83 Unit(s) Subcutaneous BID 07/08/19 22 [...] test strip hydralazine 50 mg tablet RxNorm: 865428 Take 1 Tablet(s) Oral QID 05/05/20 21 022 Inactive venlafaxine ER 225 mg tablet,extended release 24 hr RxNorm: 321245 Take 1 Tablet(s) Oral QD 05/05/20 21 021 Inactive venlafaxine ER 225 mg tablet,extended release 24 hr RxNorm: 654000 Take 1 Tablet(s) Oral QD 05/05/20 21 022 Inactive isosorbide mononitrate ER 30 mg tablet,extended release 24 hr RxNorm: 870422 Take 1 Tablet(s) Oral QD 05/05/20 21 024 Inactive hydralazine 50 mg tablet RxNorm: 378124 Take 1 Tablet(s) Oral QID 05/05/20 21 021 Inactive aspirin 81 mg tablet,delayed release RxNorm: 722287 Take 1 Tablet(s) Oral QD 03/31/20 21 022 Inactive Vitamin D2 1,250 mcg (50,000 unit) capsule RxNorm: 8658766 Take 1 Capsule(s) Oral QW once a week x 12 weeks 03/31/20 022 Inactive Vitamin D2 1,250 mcg (50,000 unit) capsule RxNorm: 6401264 Take 1 Capsule(s) Oral QW once a week 03/31/20 Inactive Zetia 10 mg tablet RxNorm: 060674 Take 1 Tablet(s) Oral QD 03/31/20 024 Inactive Zetia 10 mg tablet RxNorm: 962703 Take 1 Tablet(s) Oral QD 03/31/20 021 Inactive hydralazine 25 mg tablet RxNorm: 704761 Take 1 Tablet(s) Oral QID 03/31/20 021 Inactive hydralazine 25 mg tablet RxNorm: 082237 Take 1 Tablet(s) Oral QID 03/31/20 021 Inactive hydralazine 10 mg tablet RxNorm: 341919 Take 1 Tablet(s) Oral QID 03/03/20 021 Inactive cephalexin 500 mg tablet RxNorm: 380951 Take 1 Tablet(s) Oral QID 02/27/20 021 Inactive cephalexin 500 mg tablet RxNorm: 023075 Take 1 Tablet(s) Oral QID 02/27/20 021 Inactive lisinopril 40 mg tablet RxNorm: 158541 Take 1 Tablet(s) Oral QD 02/11/20 21 023 Inactive Eliquis 5 mg tablet RxNorm: 7649627 Take 1 Tablet(s) Oral BID 01/05/20 21 025 Inactive Eliquis 5 mg tablet RxNorm: 6821086 Take 2 Tablet(s) Oral QD 01/01/20 21 021 Inactive Lyrica 50 mg capsule RxNorm: 699999 Take 1 Capsule(s) Oral QAM every morning 12/24/19 21 021 Inactive Lyrica 100 mg capsule RxNorm: 784309 Take 1 Capsule(s) Oral QHS every night at bedtime 12/24/19 21 021 Inactive clotrimazole 1 % topical cream RxNorm: 989792 Apply to right foot and toes Topical BID 12/04/19 21 023 Inactive metoprolol succinate ER 200 mg tablet,extended release 24 hr RxNorm: 146830 Take 1 Tablet(s) Oral QD 12/04/19 21 023 Inactive ciprofloxacin 500 mg tablet RxNorm: 889452 Take 1 Tablet(s) Oral QD 11/30/19 21 021 Inactive DX ofloxacin otic drops Accu-Chek Guide test strips RxNorm: USE 1 TO CHECK GLUCOSE 4 TIMES DAILY AND NEEDED 11/15/19 21 023 Inactive Blood Glucose Test strips RxNorm: Use 1 Test Strip QID at PRN 11/05/19 21 023 Inactive E11.42 lisinopril 30 mg tablet RxNorm: 887413 Take 1 Tablet(s) Oral QD 10/30/19 21 021 Inactive lisinopril 20 mg tablet RxNorm: 249762 Take 1 Tablet(s) Oral QD 10/23/19 21 021 Inactive lisinopril 20 mg tablet RxNorm: 901274 Take 1 Tablet(s) Oral QD 10/23/19 21 021 Inactive lisinopril 10 mg tablet RxNorm: 892897 Take 1 Tablet(s) Oral QD 10/02/19 21 021 Inactive icosapent ethyl 1 gram capsule RxNorm: 8945370 Take 2 Capsule(s) (2 gm) Oral BID with meals 09/12/19 21 024 Inactive Okay to dispense one 2gm tab if you have that available. icosapent ethyl 1 gram capsule RxNorm: 7345857 Take 2 Capsule(s) Oral BID 09/12/19 21 021 Inactive Okay to dispense one 2gm tab if you have that available. amlodipine 10 mg tablet RxNorm: 174707 Take 1 Tablet(s) Oral QD 09/04/19 21 021 Inactive aspirin 81 mg tablet,delayed release RxNorm: 723061 Take 1 Tablet(s) Oral QD 09/04/19 21 021 Inactive Levemir FlexTouch U-100 Insulin 100 unit/mL (3 mL) subcutaneous pen RxNorm: 956344 Inject 150 Unit(s) Subcutaneous BID 09/04/19 022 Inactive venlafaxine ER 150 mg tablet,extended release 24 hr RxNorm: 307595 Take 1 Tablet(s) Oral QD 09/04/19 021 Inactive clotrimazole-betame thasone 1 %-0.05 % topical cream RxNorm: 413667 Apply to rash on red area on left abdomen/chest Topical BID 08/10/19 021 Inactive amlodipine 5 mg tablet RxNorm: 318510 Take 1 Tablet(s) Oral QD 07/31/19 021 Inactive cephalexin 500 mg tablet RxNorm: 416646 Take 1 Tablet(s) Oral BID BID - Twice Daily 07/31/19 021 Inactive Start 08/01/20 pantoprazole 40 mg tablet,delayed release RxNorm: 890643 Take 1 Tablet(s) Oral QAM every morning 07/08/19 025 Inactive senna 8.6 mg tablet RxNorm: 146475 Take 1 Tablet(s) Oral QD 07/08/19 025 Inactive carbamazepine 200 mg tablet RxNorm: 182856 Take 1 Tablet(s) Oral BID 07/08/19 025 Inactive clopidogrel 75 mg tablet RxNorm: 313026 Take 1 Tablet(s) Oral QD 07/08/19 021 Inactive Blood Glucose Test strips RxNorm: Use 1 Test Strip QID at PRN 07/08/19 021 Inactive E11.42 Novolog Flexpen U-100 Insulin aspart 100 unit/mL (3 mL) subcutaneous RxNorm: 7059662 Administer per sliding scale Milliliter(s) Subcutaneous TID 151-200: 10 u; 201-250: 20 u; 251-300: 30 u; 301-350: 40 u; 351-400: 50 u. 07/08/19 21 022 Inactive lisinopril 5 mg tablet RxNorm: 449655 Take 1 Tablet(s) Oral QD 07/08/19 021 Inactive Novolog Flexpen U-100 Insulin aspart 100 unit/mL (3 mL) subcutaneous RxNorm: 4797973 Inject 85 Unit(s) Subcutaneous TID 07/08/19 022 Inactive pravastatin 80 mg tablet RxNorm: 767465 Take 1 Tablet(s) Oral QHS every night at bedtime 07/08/19 023 Inactive clotrimazole 1 % topical cream RxNorm: 652400 Apply to bilateral groin areas Topical BID 07/08/19 022 Inactive metoprolol succinate ER 200 mg tablet,extended release 24 hr RxNorm: 696625 Take 1 Tablet(s) Oral QD 07/08/19 21 021 Inactive Vitamin D3 25 mcg (1,000 unit) tablet RxNorm: 611368 Take 1 Tablet(s) Oral QD 07/08/19 021 Inactive isosorbide dinitrate 30 mg tablet RxNorm: 184689 Take 1 Tablet(s) Oral QD 07/08/19 021 Inactive Levemir FlexTouch U-100 Insulin 100 unit/mL (3 mL) subcutaneous pen RxNorm: 894926 Inject 140 Unit(s) Subcutaneous BID 07/08/19 021 Inactive torsemide 20 mg tablet RxNorm: 070688 Take 1 Tablet(s) Oral QD 07/08/19 023 Inactive venlafaxine 75 mg tablet RxNorm: 031829 Take 1 Tablet(s) Oral QD 07/08/19 021 Inactive acetaminophen 500 mg tablet RxNorm: 850201 Take 1 Tablet(s) Oral TID as needed for headache 06/18/19 021 Inactive acetaminophen 500 mg tablet RxNorm: 195675 Take 1 Tablet(s) Oral TID as needed for headache 06/18/19 021 Inactive Lyrica 100 mg capsule RxNorm: 161470 Take 1 Capsule(s) Oral QHS every night at bedtime 06/11/19 021 Inactive Lyrica 50 mg capsule RxNorm: 787895 Take 1 Capsule(s) Oral QAM every morning 06/10/19 21 021 Inactive hydrocortisone 2.5 % topical cream RxNorm: 984510 Apply to bilateral groin creases Topical BID 05/15/20 20 021 Inactive clotrimazole 1 % topical cream RxNorm: 062896 Apply to bilateral groin areas Topical BID 05/15/20 20 021 Inactive Lyrica 50 mg capsule RxNorm: 624436 Take 1 Capsule(s) Oral QAM every morning 05/14/20 20 020 Inactive Lyrica 100 mg capsule RxNorm: 652650 Take 1 Capsule(s) Oral QHS every night [...] Inactive Nystop 100,000 unit/gram topical powder RxNorm: 142459 Apply to abd folds, under breasts and L side of groin Topical BID x 14 days, then BID PRN 04/08/20 20 020 Inactive dx: yeast dermatitis Lyrica 100 mg capsule RxNorm: 126376 Take 1 Capsule(s) Oral QHS every night at bedtime 03/13/20 20 020 Inactive Lyrica 50 mg capsule RxNorm: 354800 Take 1 Capsule(s) Oral QAM every morning 03/13/20 20 020 Inactive ketoconazole 2 % shampoo RxNorm: 240475 Apply Topical two times a week with showers 03/11/20 20 024 Inactive cholecalciferol (vitamin D3) 50 mcg (2,000 unit) tablet RxNorm: 107064 Take 1 Tablet(s) Oral QD 03/11/20 021 Inactive Zetia 10 mg tablet RxNorm: 949294 Take 1 Tablet(s) Oral QD 03/07/20 021 Inactive Zetia 10 mg tablet RxNorm: 267679 Take 1 Tablet(s) Oral QD 03/07/20 Inactive Lyrica 50 mg capsule RxNorm: 912767 Take 1 Capsule(s) Oral QAM every morning 02/15/20 Inactive Lyrica 100 mg capsule RxNorm: 544400 Take 1 Capsule(s) Oral QHS every night at bedtime 02/15/20 Inactive Lyrica 100 mg capsule RxNorm: 338471 Take 1 Capsule(s) Oral QHS every night at bedtime 02/15/20 Inactive Lyrica 50 mg capsule RxNorm: 669467 Take 1 Capsule(s) Oral QAM every morning 02/15/20 Inactive metoprolol succinate ER 200 mg tablet,extended release 24 hr RxNorm: 976586 Take 1 Tablet(s) Oral QD 08/12/19 025 Inactive loperamide 2 mg capsule RxNorm: 297995 Take 1 Capsule(s) Oral QID as needed 09/06/19 025 Inactive hydralazine 50 mg tablet RxNorm: 503325 Take 1 Tablet(s) Oral QID 08/12/19 025 Inactive Soft Touch Lancets RxNorm: miscellaneous 03/04/20 24 025 Inactive venlafaxine ER 75 mg capsule,extended release 24 hr RxNorm: 790761 Take 3 Capsule(s) Oral QD 06/12/19 22 023 Inactive polyethylene glycol 3350 17 gram/dose oral powder RxNorm: 948877 Take 17=1 capful Gram(s) Oral BID as needed mix with 4-8oz of liquid 06/12/19 22 024 Inactive icosapent ethyl 1 gram capsule RxNorm: 2852253 Take 2 Capsule(s) (2 gm) Oral BID with meals 10/07/19 23 023 Inactive Okay to dispense one 2gm tab if you have that available. Levemir FlexTouch U-100 Insulin 100 unit/mL (3 mL) subcutaneous pen RxNorm: 683039 Inject 80 Unit(s) Subcutaneous BID 07/14/19 23 023 Inactive Novolog Flexpen U-100 Insulin aspart 100 unit/mL (3 mL) subcutaneous RxNorm: 4866483 Insert 30 Unit(s) Subcutaneous TID with meals [...] Planned Activity Notes Codes Status Date Referral: [facility] [address] [id number] [place] Referral Appointment Scheduled 10/20/2024 Referral: [facility]/Endocrinology WPtel: [address] [facility] 3 [id number] [place] Referral No Records Received 07/10/2024 Patient Education: Patient Medication Summary Completed 05/08/2024 Appointment: Brian Munson WPtel: [address] [place], [place] [id number] AWV 02/08/2024 Appointment: Brian Munson WPtel: [address] [place], [place] [id number] [place] F/U 01/11/2024 Appointment: Sandra Clark WPtel: [address] [place], [place] [phone] Telehealth Psych Follow Up 12/09 Appointment: Tapan Shirley WPtel: [address] [place], [place] [phone] TCM 10/26/2022 Referral: [facility] WPtel: [phone], [address] [id number] [place] Referral Records Received 09/21/2022 Appointment: Tapan Shirley WPtel: [address] [place], [place] [phone] [place] F/U 08/11/2022 Appointment: Tapan Shirley WPtel: [address] [place] F/U 07/14/2022 Appointment: Tapan Shirley WPtel: [address] [facility] [address] [id number] F/U 02/10/2022 Referral: [facility]LO WPtel: [address] [id number] [place] Referral Completed 05/28/2021 Referral: General Cardiology [...] [facility] to have closer nursing attention. Sister Jyotsna involved in his care cell# [phone] Guardian: Giulia (tapan met in person 09/01/21), [...]
--- OUTSIDE RECORDS SUMMARY | 2024-10-19 19:24 | XMS_ITS | CCD ---
Author Organization Unknown Care Team Providers Care Marketing Programs Specialist Name Role Phone Harrison Durham Primary Care Provider Leona vailable Unavailable Chronic Care Management Unavaila ble Summary Purpose DataExchange Insurance Providers Payer name Policy type / Coverage type Covered green party ID Effective Begin Date Effective End Date [place] [id number] Unknown Unknown Medicaid [place] Medicare Part B [id number] Unknown Unknown Family history Sister Brittany Suggs Diagnosis Age At Onset No Family Disease Entered N/A Runs in the family Diagnosis Age At Onset No Known Diseases N/A Sister Blanka Mcduffie Diagnosis Age At Onset No Family Disease Entered N/A Social History Social History Element Codes Description Effec tive Dates Tobacco history SNOMED CT: 900441530 Never smoker 01/16 Sexually Active? Unknown No [...] Facility 09/03/[address]: 263893443 No Alcohol Consum ption 09/02/2020 Allergies, Adverse Reactions, Alerts Substance Reaction Codes Entered Date Inactivated Date Status * NO KNOWN FOOD ALLERGIES Unknown 07/13/2023 No Inactive Date Active LISINOPRIL RxNorm: 73331 02/12/2020 No Inactive Da te Active Metformin [...] 09/07/2023 Resolved Coronary artery disease invo lving [place] coronary artery of [place] heart, angina presence unspecified ICD-10: I25.10 ICD-9: [...] Fill Instructions pregabalin 150 mg capsule RxNorm: 811811 Take 1 Capsule(s) Oral QHS every night at bedtime 03/31/20 024 Inactive Vascepa 1 gram capsule RxNorm: 1483194 Take 2 Capsule(s) Oral BID 03/30/20 24 025 Active rosuvastatin 40 mg tablet RxNorm: 695888 1 TAB ORALLY EVERY EVENING (DX:CORONARY ARTERY DISEASE) 03/28/20 No Stop Date Active venlafaxine ER 75 mg capsule,extended release 24 hr RxNorm: 435303 3 CAPS (225MG) ORALLY DAILY (DX: MOOD DISORDER) 03/28/20 No Stop Date Active pregabalin 100 mg capsule RxNorm: 707208 Take 1 Capsule(s) Oral QAM every morning 03/20/20 24 024 Inactive cholecalciferol (vitamin D3) 1,250 mcg (50,000 unit) capsule RxNorm: 124484 Take 1 Capsule(s) Oral QW once a [...] Insulin 100 unit/mL (3 mL) subcutaneous RxNorm: 5612447 Inject 40 Unit(s) Subcutaneous BID 03/07/20 025 Inactive Please dispense one month supply. Humulin R U-500 (Concentrated) Insulin 500 unit/mL subcutaneous soln RxNorm: 071794 Inject 100 Unit(s) Subcutaneous AC before meals [...] PRN) to be use with new Accu [place]pine meter 03/04/20 024 Inactive ok to substitute with any covered alternative test strip FreeStyle Chema 2 Sensor kit RxNorm: Use UD as directed 03/02/20 025 Inactive FreeStyle Chema 2 Sensor kit RxNorm: Use UD as directed 03/02/2009 03/17/2 024 Inactive Pen Needle 30 gauge x 516 RxNorm: Pen(s) Use 1 needle as directed TID 03/02/20 24 024 Inactive nystatin 100,000 unit/gram topical powder RxNorm: 576417 Apply 1 Application Topical BID as needed [...] (Concentrated) Insulin 500 unit/mL subcutaneous soln RxNorm: 214105 Inject 100 Unit(s) Subcutaneous TID 02/17/20 24 024 Inactive Humulin R U-500 (Concentrated) Insulin 500 unit/mL subcutaneous soln RxNorm: 686184 Inject 100 Unit(s) Subcutaneous TID 02/10/20 24 024 Inactive Basaglar KwikPen U-100 Insulin 100 unit/mL (3 mL) subcutaneous RxNorm: 7527374 Inject 30 Unit(s) Subcutaneous BID 02/10/20 24 024 Inactive Please dispense one month supply. pregabalin 100 mg capsule RxNorm: 048648 Take 1 Capsule(s) Oral QAM every morning 02/07/20 24 024 Inactive isosorbide mononitrate ER 60 mg tablet,extended release 24 hr RxNorm: 923330 Take 1 Tablet(s) Oral QD 02/01/20 24 025 Active aripiprazole 15 mg tablet RxNorm: 543501 Take 1/2 Tablet(s) Oral QD 02/01/20 24 025 Active torsemide 20 mg tablet RxNorm: 340970 1 TAB ORALLY DAILY (DX: EDEMA) 01/27/20 24 No Stop Date Active potassium chloride ER 20 mEq tablet,extended release(part/cryst) RxNorm: 1446549 2 TABS (40MEQ) ORALLY TWICE DAILY (DX: HYPOKALEMIA) 01/27/20 24 025 Inactive cephalexin 500 mg capsule RxNorm: 342709 Take 1 Capsule(s) Oral QID 12/17/19 24 024 Inactive cephalexin 500 mg capsule RxNorm: 415795 Take 1 Capsule(s) Oral QID 12/17/19 24 024 Inactive acetaminophen 500 mg tablet RxNorm: 776717 (MAX APAP:4GM/24HR) Take 1 Tablet(s) Oral TID as needed for pain 12/10/19 24 Inactive torsemide 20 mg tablet RxNorm: 763221 Take 1 Tablet(s) Oral QD 10/26/19 24 025 Inactive potassium chloride ER 20 mEq tablet,extended release RxNorm: 792236 Take 2 Tablet(s) Oral BID 10/26/19 24 025 Inactive torsemide 20 mg tablet RxNorm: 308139 Take 1 Tablet(s) Oral QD 10/26/19 24 024 Inactive potassium chloride ER 20 mEq tablet,extended release RxNorm: 19800522 Take 2 Tablet(s) Oral BID 10/26/19 24 024 Inactive Artificial Tears (PF) 0.1 %-0.3 % drops in a dropperette RxNorm: 500689 Apply 1-2 Drop(s) Both eyes BID as needed 09/28/19 24 025 Inactive erythromycin 5 mg/gram (0.5 %) eye ointment RxNorm: 473344 Apply 1 Application Both eyes QHS every night at bedtime Instill ~1 cm ribbon into affected eye 09/28/19 24 024 Inactive Artificial Tears (PF) 0.1 %-0.3 % drops in a dropperette RxNorm: 022140 Apply 1-2 Drop(s) Both eyes BID as needed 09/28/19 24 024 Inactive erythromycin 5 mg/gram (0.5 %) eye ointment RxNorm: 574311 Apply 1 Application Both eyes QHS every night at bedtime Instill ~1 cm ribbon into affected eye 09/28/19 24 024 Inactive acetaminophen 500 mg tablet RxNorm: 089022 (MAX APAP:4GM/24HR) Take 1 Tablet(s) Oral TID as needed for pain 09/24/19 024 Inactive carvedilol 25 mg tablet RxNorm: 503292 Take 1 Tablet(s) Oral QD 09/08/19 24 No Stop Date Active pregabalin 100 mg capsule RxNorm: 502208 Take 1 Capsule(s) Oral QAM every morning 09/07/19 24 024 Inactive ezetimibe 10 mg tablet RxNorm: 742695 Take 1 Tablet(s) Oral QD 07/13/19 24 025 Inactive bisacodyl 10 mg rectal suppository RxNorm: 827961 Insert 1 Suppository Rectal QD as needed 07/13/19 24 No Stop Date Active polyethylene glycol 3350 17 gram/dose oral powder RxNorm: 357965 Take 17 Gram(s) Oral BID as needed mix in 4-8ox water 07/13/19 24 025 Inactive ketoconazole 2 % shampoo RxNorm: 118284 Apply 1 Application Topical UD as directed 07/13/19 No Stop Date Active Ozempic 1 mg/dose (4 mg/3 mL) subcutaneous pen injector RxNorm: 6560492 Inject 1 Milligram(s) Subcutaneous QW once a week 07/13/19 No Stop Date Active Guaifenesin AC 10 mg-100 mg/5 mL oral liquid RxNorm: 106813 Take 10 Milliliter(s) Oral Q4H every four hours as needed 07/13/19 24 No Stop Date Active ammonium lactate 12 % topical cream RxNorm: 067193 Apply 1 Application Topical BID 07/13/19 24 025 Inactive hydrocortisone 2.5 % topical cream RxNorm: 540403 Apply 1 Application Topical BID as needed 07/13/19 24 No Stop Date Active rosuvastatin 20 mg sprinkle capsule RxNorm: 0081444 Take 1 Capsule(s) Oral QD 07/13/19 24 025 Inactive rosuvastatin 40 mg tablet RxNorm: 283323 Take 1 Tablet(s) Oral QPM every evening 07/13/19 24 024 Inactive aripiprazole 15 mg tablet RxNorm: 767607 Take 1/2 Tablet(s) Oral QD 07/13/19 24 024 Inactive isosorbide mononitrate ER 60 mg tablet,extended release 24 hr RxNorm: 797475 Take 1 Tablet(s) Oral QD 07/13/19 24 024 Inactive Vascepa 1 gram capsule RxNorm: 0167213 Take 2 Capsule(s) Oral BID 07/13/19 24 024 Inactive venlafaxine ER 75 mg capsule,extended release 24 hr RxNorm: 557457 Take 3 Capsule(s) Oral QD 07/13/19 24 024 Inactive Basaglar KwikPen U-100 Insulin 100 unit/mL (3 mL) subcutaneous RxNorm: 9364167 Inject 30U SubQ twice daily 07/07/19 24 024 Inactive Please dispense one month supply. Basaglar KwikPen U-100 Insulin 100 unit/mL (3 mL) subcutaneous RxNorm: 8806254 Inject 30U SubQ twice daily 07/07/19 24 024 Inactive Please dispense one month supply. pregabalin 150 mg capsule RxNorm: 802102 Take 1 Capsule(s) Oral QHS every night at bedtime 07/05/19 24 024 Inactive pregabalin 150 mg capsule RxNorm: 503100 Take 1 Capsule(s) Oral QHS every night at bedtime 07/05/19 24 024 Inactive polyethylene glycol 3350 17 gram/dose oral powder RxNorm: 919165 Take 1 Packet Oral QD as needed (1 packet = 17g) mix with 4-8oz of liquid 06/15/19 24 024 Inactive bisacodyl 10 mg rectal suppository RxNorm: 365693 Insert one suppository per rectum once daily as needed for constipation 06/15/19 24 024 Inactive bisacodyl 10 mg rectal suppository RxNorm: 629248 Insert one suppository per rectum once daily as needed for constipation 06/15/19 24 024 Inactive pregabalin 100 mg capsule RxNorm: 233327 Take 1 Capsule(s) Oral QAM every morning 04/27/20 024 Inactive Levemir FlexPen 100 unit/mL (3 mL) solution subcutaneous insulin pen RxNorm: 326521 Inject 30 Unit(s) Subcutaneous BID 04/27/20 23 024 Inactive rosuvastatin 40 mg tablet RxNorm: 678197 Take 1 Tablet(s) Oral QPM every evening 04/16/20 024 Inactive D/C rosuvastatin 20mg venlafaxine ER 75 mg capsule,extended release 24 hr RxNorm: 483522 Take 3 Capsule(s) Oral QD 04/14/20 023 Inactive pregabalin 100 mg capsule RxNorm: 590871 Take 1 Capsule(s) Oral QAM every morning [...] strip clotrimazole 1 % topical cream RxNorm: 869367 Take apply topically to abdominal folds twice daily for 14 days 03/12/20 024 Inactive Ozempic 1 mg/dose (4 mg/3 mL) subcutaneous pen injector RxNorm: 9843026 Inject 1 Milligram(s) Subcutaneous QW once a week 03/11/20 023 Inactive rosuvastatin 20 mg tablet RxNorm: 700689 Take 1 Tablet(s) Oral QD 02/26/20 023 Inactive d/c pravastatin 80mg Ozempic 1 mg/dose (4 mg/3 mL) subcutaneous pen injector RxNorm: 1994263 Inject 1 Milligram(s) Subcutaneous QW once a week 02/20/20 23 023 Inactive pregabalin 150 mg capsule RxNorm: 615406 Take 1 Capsule(s) Oral HS at bed time 02/19/20 23 023 Inactive pregabalin 100 mg capsule RxNorm: 916493 Take 1 Capsule(s) Oral QAM every morning 02/18/20 23 023 Inactive venlafaxine ER 75 mg capsule,extended release 24 hr RxNorm: 444434 Take 3 Capsule(s) Oral QD 02/04/20 23 023 Inactive FreeStyle Chema 2 Sensor kit RxNorm: use as directed 02/04/20 23 023 Inactive FreeStyle Chema 2 Sensor kit RxNorm: use as directed 02/04/20 23 024 Inactive fluconazole 150 mg tablet RxNorm: 417570 Take 1 Tablet(s) Oral on day 3 and on day 6 02/03/20 23 024 Inactive chlorthalidone 25 mg tablet RxNorm: 246051 Take 1 Tablet(s) Oral QAM every morning 02/03/20 23 024 Inactive venlafaxine ER 150 mg capsule,extended release 24 hr RxNorm: 144829 Take 1 Capsule(s) Oral QD 02/03/20 23 023 Inactive acetaminophen 500 mg tablet RxNorm: 372486 1 TABLET ORALLY 3 TIMES DAILY (MAX APAP:4GM/24HR) 12/15/19 23 023 Inactive clotrimazole 1 % topical cream RxNorm: 659054 apply 1g topically to top of feet and in between toes BID 12/09/19 23 025 Inactive potassium chloride ER 20 mEq tablet,extended release RxNorm: 272925 Take 1 Tablet(s) Oral BID 12/09/19 23 024 Inactive d/c 20mEq once daily (sent from hospital) nystatin 100,000 unit/gram topical powder RxNorm: 292357 APPLY TO AFFECTED AREAS TOPICALLY 2 TIMES DAILY 11/21/19 23 023 Inactive Nystop 100,000 unit/gram topical powder RxNorm: 499266 Apply to abd folds, under breasts and L side of groin Topical BID x 14 days, then BID PRN 11/20/19 23 023 Inactive dx: yeast dermatitis [place] Ultra Strength 4 %-30 %-10 % topical cream RxNorm: 813486 Apply 1 Gram(s) Topical QID PRN to feet and legs for neuropathic pain 11/11/19 024 Inactive clotrimazole 1 % topical cream RxNorm: 874990 Apply 1/2 Gram(s) Topical BID Apply to affected areas of groin, periarea, and abdominal topically 2 times daily 11/10/19 23 023 Inactive hydrocortisone 2.5 % topical cream RxNorm: 892840 Apply 1/2 Gram(s) Topical BID as needed 11/10/19 23 024 Inactive Levemir FlexPen 100 unit/mL (3 mL) solution subcutaneous insulin pen RxNorm: 082139 Inject 30 Unit(s) Subcutaneous BID 10/07/19 023 Inactive Humulin R U-500 (Concentrated) Insulin 500 unit/mL subcutaneous soln RxNorm: 866048 Inject 100 Unit(s) Subcutaneous TID 10/07/19 024 Inactive Ozempic 0.25 mg or 0.5 mg (2 mg/3 mL) subcutaneous pen injector RxNorm: 5178205 Inject 1/2 Milligram(s) Subcutaneous QW once a week 10/07/19 024 Inactive aripiprazole 15 mg tablet RxNorm: 871210 1/2 TAB (7.5MG) ORALLY DAILY (DX:MAJOR DEPRESSIVE DISORDER) 09/23/19 23 023 Inactive Accu-Chek Guide test strips RxNorm: Use 1 Test Strip QID 09/15/19 23 023 Inactive ok to substitute with any covered alternative test strip Lancets,Thin 28 gauge RxNorm: Use 1 as directed QID 09/15/19 23 023 Inactive torsemide 20 mg tablet RxNorm: 205961 Take 1 Tablet(s) Oral BID 09/09/19 23 024 Inactive d/c once daily dosing carvedilol 25 mg tablet RxNorm: 486876 Take 1 Tablet(s) Oral QD 08/25/19 23 024 Inactive pregabalin 150 mg capsule RxNorm: 037081 1 Capsule(s) Oral HS at bed time 08/18/19 023 Inactive pregabalin 100 mg capsule RxNorm: 364961 1 Capsule(s) Oral QAM every morning 08/18/19 23 023 Inactive carvedilol 25 mg tablet RxNorm: 302297 1 Tablet(s) Oral QD 07/28/19 23 023 Inactive lisinopril 20 mg tablet RxNorm: 510572 Give 1 Tablet(s) Oral QD 07/28/19 23 023 Inactive Lyrica 150 mg capsule RxNorm: 219920 Take 1 Capsule(s) Oral QHS every night at bedtime 07/19/19 023 Inactive d/c 100mg dose Diflucan 150 mg tablet RxNorm: 089115 Take 1 Tablet(s) Oral QD repeat on day 3 and 6 07/19/19 23 023 Inactive pregabalin 100 mg capsule RxNorm: 780635 Take 1 Capsule(s) Oral QAM every morning 07/19/19 023 Inactive gatifloxacin 0.5 % eye drops RxNorm: 400880 Instill 1 Drop(s) as directed TID Instill 1 drop in to affected eye(s) starting 1 day prior to surgery and continue until gone (do not exceed 4 weeks). 07/13/19 023 Inactive carvedilol 25 mg tablet RxNorm: 346485 2 Tablet(s) Oral BID 07/13/19 023 Inactive Humulin R Regular U-100 Insulin 100 unit/mL injection solution RxNorm: 142713 85 Unit(s) Injection TID 07/13/19 23 023 Inactive ketorolac 0.5 % eye drops RxNorm: 377049 Instill 1 Drop(s) as directed QID Instill 1 drop into affected eye(s) 4 times daily starting 1 day prior to surgery and continue until gone (do not exceed 4 weeks). 07/13/19 23 023 Inactive Diflucan 150 mg tablet RxNorm: 503460 Take 1 Tablet(s) Oral QD repeat on day 3 and 6 06/30/19 23 023 Inactive Accu-Chek Guide test strips RxNorm: Use 1 Test Strip QID Use 1 test strip to monitor blood glucose 4 times daily and as needed. Dx:E11.42. 06/23/19 23 023 Inactive ok to substitute with any covered alternative test strip dextromethorphan-gu aifenesin 10 mg-100 mg/5 mL oral liquid RxNorm: 624572 Take 10 Milliliter(s) Oral every 4 hours as needed for cough 06/19/19 23 023 Inactive dextromethorphan-gu aifenesin 10 mg-100 mg/5 mL oral liquid RxNorm: 017883 Take 10 Milliliter(s) Oral every 4 hours as needed for cough 06/19/19 023 Inactive Lyrica 150 mg capsule RxNorm: 700271 Take 1 Capsule(s) Oral QHS every night at bedtime 06/18/19 023 Inactive d/c 100mg dose aripiprazole 15 mg tablet RxNorm: 472504 1/2 TAB (7.5MG) ORALLY DAILY (DX:MAJOR DEPRESSIVE DISORDER) 06/05/19 023 Inactive pregabalin 100 mg capsule RxNorm: 239188 1 Capsule(s) Oral QAM every morning 06/02/19 23 023 Inactive Banophen 50 mg capsule RxNorm: 3613397 Take 1 Capsule(s) Oral Q6H every 6 hours as needed 05/19/19 23 No Stop Date Active Novolog Flexpen U-100 Insulin aspart 100 unit/mL (3 mL) subcutaneous RxNorm: 6076380 Inject 10 Unit(s) Subcutaneous QHS every night at bedtime with nighttime snack 04/08/20 22 022 Inactive Novolog Flexpen U-100 Insulin aspart 100 unit/mL (3 mL) subcutaneous RxNorm: 9291663 Inject 42 Unit(s) Subcutaneous TID in addition to sliding scale 04/08/20 22 022 Inactive d/c 36u albuterol sulfate HFA 90 mcg/actuation aerosol inhaler RxNorm: 1313707 Take 2 Puff(s) Inhalation Q4H every four hours as needed as needed for SOB, cough, or wheezing 04/07/20 22 030 Active Banophen 50 mg capsule RxNorm: 5336295 Take 1 Capsule(s) Oral Q6H every 6 hours as needed 04/06/20 023 Inactive diphenhydramine 50 mg tablet RxNorm: 5580225 Take 1 Tablet(s) Oral Q6H every 6 hours as needed 04/06/20 22 022 Inactive diphenhydramine 50 mg tablet RxNorm: 7672250 1 Tablet(s) Oral Q6H every 6 hours as needed 04/06/20 22 022 Inactive Abilify 15 mg tablet RxNorm: 042106 1/2 Tablet(s) Oral QD 03/10/20 023 Inactive Shingrix (PF) 50 mcg/0.5 mL intramuscular suspension, kit RxNorm: 4791149 Administer 1/2 Milliliter(s) Intramuscular QD one time shingrix step 2 ( step 1 given 11/04/21) WITH needle - Nursing please administer upon arrival and once administered post a bridge message with date of administration, barytes grinder, expiration date, and lot# so we can update [facility] 02/18/20 22 022 Inactive dispense with needle Shingrix (PF) 50 mcg/0.5 mL intramuscular suspension, kit RxNorm: 2985628 Administer 1/2 Milliliter(s) Intramuscular QD one time shingrix step 2 ( step 1 given 11/04/21) WITH needle - Nursing please administer upon arrival and once administered post a bridge message with date of administration, barytes grinder, expiration date, and lot# so we can update [facility] 02/18/20 22 022 Inactive dispense with needle polyethylene glycol 3350 17 gram/dose oral powder RxNorm: 264870 Take 17=1 capful Gram(s) Oral QD mix with 4-8oz of liquid 01/08/20 22 025 Inactive take this in addition to BID prn order Lyrica 100 mg capsule RxNorm: 635627 Take 1 Capsule(s) Oral QAM every morning 01/08/20 22 022 Inactive d/c 50mg dose acetaminophen 500 mg tablet RxNorm: 611745 Take 1 Tablet(s) Oral TID 01/08/20 22 022 Inactive d/c PRN order Lyrica 150 mg capsule RxNorm: 359229 Take 1 Capsule(s) Oral QHS every night at bedtime 01/08/20 22 023 Inactive d/c 100mg dose Abilify 5 mg tablet RxNorm: 781687 Take 1 Tablet(s) Oral QD take 1 tab po QD #30 refill 5 dx: MDD 12/12/19 22 022 Inactive Abilify 5 mg tablet RxNorm: 414711 Take 1 Tablet(s) Oral QD take 1 tab po QD #30 refill 5 dx: MDD 12/12/19 22 022 Inactive Novolog Flexpen U-100 Insulin aspart 100 unit/mL (3 mL) subcutaneous RxNorm: 0603459 Inject 42 Unit(s) Subcutaneous TID in addition to sliding scale 12/10/19 22 022 Inactive d/c 36u chlorthalidone 25 mg tablet RxNorm: 893590 Take 1 Tablet(s) Oral QAM every morning 12/10/19 22 023 Inactive pregabalin 50 mg capsule RxNorm: 937485 Take 1 Capsule(s) Oral QAM every morning 11/12/19 22 022 Inactive tetanus-diphtheria toxoids-Td 2 Lf unit-2 Lf unit/0.5 mL IM suspension RxNorm: 139 Take 0.5 Miscellaneous Intramuscular 11/12/19 22 022 Inactive need tdap - nursing to administer upon arrival pregabalin 50 mg capsule RxNorm: 599206 Take 1 Capsule(s) Oral QAM every morning 10/16/19 22 022 Inactive pregabalin 50 mg capsule RxNorm: 201969 Take 1 Capsule(s) Oral QAM every morning 10/16/19 22 022 Inactive pregabalin 50 mg capsule RxNorm: 877356 1 Capsule(s) Oral QAM every morning 10/15/19 22 022 Inactive Shingrix (PF) 50 mcg/0.5 mL intramuscular suspension, kit RxNorm: 3169315 Administer 1/2 Milliliter(s) Intramuscular one time Nursing please administer upon arrival and once administered post a bridge message with date of administration, barytes grinder, expiration date, and lot# so we can update [facility]. 10/09/19 22 022 Inactive shingrix step 1 Shingrix (PF) 50 mcg/0.5 mL intramuscular suspension, kit RxNorm: 6620282 Administer 1/2 Milliliter(s) Intramuscular one time Nursing please administer upon arrival and once administered post a bridge message with date of administration, barytes grinder, expiration date, and lot# so we can [...] aspart 100 unit/mL (3 mL) subcutaneous RxNorm: 1884615 Inject 10 Unit(s) Subcutaneous QHS every night at bedtime with nighttime snack 10/08/19 22 Inactive Shingrix (PF) 50 mcg/0.5 mL intramuscular suspension, kit RxNorm: 3262054 ADMINISTER 2-DOSE SERIES PER CDC GUIDELINES 10/08/19 22 Active Shingrix (PF) 50 mcg/0.5 mL intramuscular suspension, kit RxNorm: 6674791 ADMINISTER 2-DOSE SERIES PER CDC GUIDELINES 10/08/19 22 022 Inactive Novolog Flexpen U-100 Insulin aspart 100 unit/mL (3 mL) subcutaneous RxNorm: 3523268 Inject 36 Unit(s) Subcutaneous TID in addition to sliding scale 10/08/19 22 Inactive cholecalciferol (vitamin D3) 1,250 mcg (50,000 unit) capsule RxNorm: 958910 Take 1 Capsule(s) Oral QW once a week 10/08/19 22 Inactive Novofine Autocover 30 gauge x 1/3 needle RxNorm: Use 1 Miscellaneous UD as directed Use 1 needle as directed to administer insulin 5 times a day Dx:E11.42. 10/03/19 22 Inactive ok to substitute with any covered alternative pen needle benzoyl peroxide 10 % topical cleanser RxNorm: 276729 Apply 1 Application Topical QD apply to face, wash rinse and dry once daily (may change to QOD if drying) 08/19/19 22 022 Inactive (%covered by insurance) #60ml refill 11 dx: acne benzoyl peroxide 10 % topical cleanser RxNorm: 890843 Apply 1 Application Topical QD apply to face, wash rinse and dry once daily (may change to QOD if drying) 08/19/19 22 022 Inactive (%covered by insurance) #60ml refill 11 dx: acne benzoyl peroxide 10 % topical cleanser RxNorm: 417576 Apply 1 Application Topical QD apply to face, wash rinse and dry once daily (may change to QOD if drying) 08/19/19 22 022 Inactive (%covered by insurance) #60ml refill 11 dx: acne Lyrica 50 mg capsule RxNorm: 243046 Take 1 Capsule(s) Oral QAM every morning Take 1 capsule by mouth once daily 08/19/19 22 022 Inactive benzoyl peroxide 10 % topical cleanser RxNorm: 271775 Apply 1 Application Topical QD apply to face, wash rinse and dry once daily (may change to QOD if drying) 08/19/19 22 022 Inactive (%covered by insurance) #60ml refill 11 dx: acne Lyrica 100 mg capsule RxNorm: 738596 Take 1 Capsule(s) Oral QHS every night at bedtime Take 1 capsule by mouth once daily at bedtime 08/19/19 22 022 Inactive Lyrica 100 mg capsule RxNorm: 734696 Take 1 Capsule(s) Oral QHS every night at bedtime Take 1 capsule by mouth once daily at bedtime 08/16/19 22 022 Inactive Lyrica 50 mg capsule RxNorm: 237463 Take 1 Capsule(s) Oral QAM every morning Take 1 capsule by mouth once daily 08/16/19 22 022 Inactive Levemir FlexTouch U-100 Insulin 100 unit/mL (3 mL) subcutaneous pen RxNorm: 297781 Inject 86 Unit(s) Subcutaneous BID 08/05/19 22 022 Inactive d/c 83units BID Lyrica 100 mg capsule RxNorm: 985156 Take 1 Capsule(s) Oral QHS every night at bedtime Take 1 capsule by mouth once daily at bedtime 07/14/19 22 022 Inactive Lyrica 50 mg capsule RxNorm: 631504 Take 1 Capsule(s) Oral QAM every morning Take 1 capsule by mouth once daily 07/14/19 22 022 Inactive Levemir FlexTouch U-100 Insulin 100 unit/mL (3 mL) subcutaneous pen RxNorm: 984742 Inject 83 Unit(s) Subcutaneous BID 07/08/19 22 [...] test strip hydralazine 50 mg tablet RxNorm: 977569 Take 1 Tablet(s) Oral QID 05/05/20 21 022 Inactive venlafaxine ER 225 mg tablet,extended release 24 hr RxNorm: 398656 Take 1 Tablet(s) Oral QD 05/05/20 Inactive venlafaxine ER 225 mg tablet,extended release 24 hr RxNorm: 148367 Take 1 Tablet(s) Oral QD 05/05/20 022 Inactive isosorbide mononitrate ER 30 mg tablet,extended release 24 hr RxNorm: 801031 Take 1 Tablet(s) Oral QD 05/05/20 024 Inactive hydralazine 50 mg tablet RxNorm: 364030 Take 1 Tablet(s) Oral QID 05/05/20 Inactive aspirin 81 mg tablet,delayed release RxNorm: 111377 Take 1 Tablet(s) Oral QD 03/31/20 022 Inactive Vitamin D2 1,250 mcg (50,000 unit) capsule RxNorm: 0587892 Take 1 Capsule(s) Oral QW once a week x 12 weeks 03/31/20 022 Inactive Vitamin D2 1,250 mcg (50,000 unit) capsule RxNorm: 9856481 Take 1 Capsule(s) Oral QW once a week 03/31/20 021 Inactive Zetia 10 mg tablet RxNorm: 315762 Take 1 Tablet(s) Oral QD 03/31/20 024 Inactive Zetia 10 mg tablet RxNorm: 476092 Take 1 Tablet(s) Oral QD 03/31/20 021 Inactive hydralazine 25 mg tablet RxNorm: 663230 Take 1 Tablet(s) Oral QID 03/31/20 21 021 Inactive hydralazine 25 mg tablet RxNorm: 259176 Take 1 Tablet(s) Oral QID 03/31/20 021 Inactive hydralazine 10 mg tablet RxNorm: 802312 Take 1 Tablet(s) Oral QID 03/03/20 021 Inactive cephalexin 500 mg tablet RxNorm: 759675 Take 1 Tablet(s) Oral QID 02/27/20 021 Inactive cephalexin 500 mg tablet RxNorm: 499273 Take 1 Tablet(s) Oral QID 02/27/20 021 Inactive lisinopril 40 mg tablet RxNorm: 972746 Take 1 Tablet(s) Oral QD 02/11/20 023 Inactive Eliquis 5 mg tablet RxNorm: 3692024 Take 1 Tablet(s) Oral BID 01/05/20 025 Inactive Eliquis 5 mg tablet RxNorm: 1203390 Take 2 Tablet(s) Oral QD 01/01/20 21 021 Inactive Lyrica 50 mg capsule RxNorm: 962569 Take 1 Capsule(s) Oral QAM every morning 12/24/19 021 Inactive Lyrica 100 mg capsule RxNorm: 983616 Take 1 Capsule(s) Oral QHS every night at bedtime 12/24/19 021 Inactive clotrimazole 1 % topical cream RxNorm: 832877 Apply to right foot and toes Topical BID 12/04/19 21 023 Inactive metoprolol succinate ER 200 mg tablet,extended release 24 hr RxNorm: 692103 Take 1 Tablet(s) Oral QD 12/04/19 21 023 Inactive ciprofloxacin 500 mg tablet RxNorm: 825055 Take 1 Tablet(s) Oral QD 11/30/19 21 021 Inactive DX ofloxacin otic drops Accu-Chek Guide test strips RxNorm: USE 1 TO CHECK GLUCOSE 4 TIMES DAILY AND NEEDED 11/15/19 21 023 Inactive Blood Glucose Test strips RxNorm: Use 1 Test Strip QID at PRN 11/05/19 21 023 Inactive E11.42 lisinopril 30 mg tablet RxNorm: 040601 Take 1 Tablet(s) Oral QD 10/30/19 21 021 Inactive lisinopril 20 mg tablet RxNorm: 972437 Take 1 Tablet(s) Oral QD 10/23/19 21 021 Inactive lisinopril 20 mg tablet RxNorm: 369752 Take 1 Tablet(s) Oral QD 10/23/19 21 021 Inactive lisinopril 10 mg tablet RxNorm: 929853 Take 1 Tablet(s) Oral QD 10/02/19 21 021 Inactive icosapent ethyl 1 gram capsule RxNorm: 8123003 Take 2 Capsule(s) (2 gm) Oral BID with meals 09/12/19 024 Inactive Okay to dispense one 2gm tab if you have that available. icosapent ethyl 1 gram capsule RxNorm: 2195051 Take 2 Capsule(s) Oral BID 09/12/19 021 Inactive Okay to dispense one 2gm tab if you have that available. amlodipine 10 mg tablet RxNorm: 222728 Take 1 Tablet(s) Oral QD 09/04/19 21 021 Inactive aspirin 81 mg tablet,delayed release RxNorm: 909626 Take 1 Tablet(s) Oral QD 09/04/19 21 021 Inactive Levemir FlexTouch U-100 Insulin 100 unit/mL (3 mL) subcutaneous pen RxNorm: 972354 Inject 150 Unit(s) Subcutaneous BID 09/04/19 21 022 Inactive venlafaxine ER 150 mg tablet,extended release 24 hr RxNorm: 084358 Take 1 Tablet(s) Oral QD 09/04/19 21 021 Inactive clotrimazole-betame thasone 1 %-0.05 % topical cream RxNorm: 194301 Apply to rash on red area on left abdomen/chest Topical BID 08/10/19 21 021 Inactive amlodipine 5 mg tablet RxNorm: 696382 Take 1 Tablet(s) Oral QD 07/31/19 21 021 Inactive cephalexin 500 mg tablet RxNorm: 132285 Take 1 Tablet(s) Oral BID BID - Twice Daily 07/31/19 21 021 Inactive Start 08/01/20 pantoprazole 40 mg tablet,delayed release RxNorm: 720486 Take 1 Tablet(s) Oral QAM every morning 07/08/19 025 Inactive senna 8.6 mg tablet RxNorm: 959957 Take 1 Tablet(s) Oral QD 07/08/19 025 Inactive carbamazepine 200 mg tablet RxNorm: 065518 Take 1 Tablet(s) Oral BID 07/08/19 025 Inactive clopidogrel 75 mg tablet RxNorm: 423363 Take 1 Tablet(s) Oral QD 07/08/19 021 Inactive Blood Glucose Test strips RxNorm: Use 1 Test Strip QID at PRN 07/08/19 Inactive E11.42 Novolog Flexpen U-100 Insulin aspart 100 unit/mL (3 mL) subcutaneous RxNorm: 0561146 Administer per sliding scale Milliliter(s) Subcutaneous TID 151-200: 10 u; 201-250: 20 u; 251-300: 30 u; 301-350: 40 u; 351-400: 50 u. 07/08/19 022 Inactive lisinopril 5 mg tablet RxNorm: 610774 Take 1 Tablet(s) Oral QD 07/08/19 021 Inactive Novolog Flexpen U-100 Insulin aspart 100 unit/mL (3 mL) subcutaneous RxNorm: 8654112 Inject 85 Unit(s) Subcutaneous TID 07/08/19 022 Inactive pravastatin 80 mg tablet RxNorm: 565593 Take 1 Tablet(s) Oral QHS every night at bedtime 07/08/19 023 Inactive clotrimazole 1 % topical cream RxNorm: 792961 Apply to bilateral groin areas Topical BID 07/08/19 21 022 Inactive metoprolol succinate ER 200 mg tablet,extended release 24 hr RxNorm: 359603 Take 1 Tablet(s) Oral QD 07/08/19 021 Inactive Vitamin D3 25 mcg (1,000 unit) tablet RxNorm: 802023 Take 1 Tablet(s) Oral QD 07/08/19 021 Inactive isosorbide dinitrate 30 mg tablet RxNorm: 144149 Take 1 Tablet(s) Oral QD 07/08/19 021 Inactive Levemir FlexTouch U-100 Insulin 100 unit/mL (3 mL) subcutaneous pen RxNorm: 264058 Inject 140 Unit(s) Subcutaneous BID 07/08/19 021 Inactive torsemide 20 mg tablet RxNorm: 298830 Take 1 Tablet(s) Oral QD 07/08/19 21 023 Inactive venlafaxine 75 mg tablet RxNorm: 091214 Take 1 Tablet(s) Oral QD 07/08/19 Inactive acetaminophen 500 mg tablet RxNorm: 378039 Take 1 Tablet(s) Oral TID as needed for headache 06/18/19 21 Inactive acetaminophen 500 mg tablet RxNorm: 624936 Take 1 Tablet(s) Oral TID as needed for headache 06/18/19 021 Inactive Lyrica 100 mg capsule RxNorm: 558500 Take 1 Capsule(s) Oral QHS every night at bedtime 06/11/19 21 021 Inactive Lyrica 50 mg capsule RxNorm: 050942 Take 1 Capsule(s) Oral QAM every morning 06/10/19 21 021 Inactive hydrocortisone 2.5 % topical cream RxNorm: 338280 Apply to bilateral groin creases Topical BID 05/15/20 20 021 Inactive clotrimazole 1 % topical cream RxNorm: 593471 Apply to bilateral groin areas Topical BID 05/15/20 20 021 Inactive Lyrica 50 mg capsule RxNorm: 103584 Take 1 Capsule(s) Oral QAM every morning 05/14/20 20 Inactive Lyrica 100 mg capsule RxNorm: 327534 Take 1 Capsule(s) Oral QHS every night [...] Inactive Nystop 100,000 unit/gram topical powder RxNorm: 952629 Apply to abd folds, under breasts and L side of groin Topical BID x 14 days, then BID PRN 04/08/20 20 Inactive dx: yeast dermatitis Lyrica 100 mg capsule RxNorm: 428227 Take 1 Capsule(s) Oral QHS every night at bedtime 03/13/20 20 Inactive Lyrica 50 mg capsule RxNorm: 773566 Take 1 Capsule(s) Oral QAM every morning 03/13/20 20 Inactive ketoconazole 2 % shampoo RxNorm: 188885 Apply Topical two times a week with showers 03/11/20 20 024 Inactive cholecalciferol (vitamin D3) 50 mcg (2,000 unit) tablet RxNorm: 631078 Take 1 Tablet(s) Oral QD 03/11/20 20 021 Inactive Zetia 10 mg tablet RxNorm: 123805 Take 1 Tablet(s) Oral QD 03/07/20 20 021 Inactive Zetia 10 mg tablet RxNorm: 716691 Take 1 Tablet(s) Oral QD 03/07/20 20 020 Inactive Lyrica 50 mg capsule RxNorm: 917767 Take 1 Capsule(s) Oral QAM every morning 02/15/20 20 Inactive Lyrica 100 mg capsule RxNorm: 710846 Take 1 Capsule(s) Oral QHS every night at bedtime 02/15/20 20 Inactive Lyrica 100 mg capsule RxNorm: 821530 Take 1 Capsule(s) Oral QHS every night at bedtime 02/15/20 20 Inactive Lyrica 50 mg capsule RxNorm: 836721 Take 1 Capsule(s) Oral QAM every morning 02/15/20 20 020 Inactive metoprolol succinate ER 200 mg tablet,extended release 24 hr RxNorm: 500203 Take 1 Tablet(s) Oral QD 08/12/19 025 Inactive loperamide 2 mg capsule RxNorm: 772393 Take 1 Capsule(s) Oral QID as needed 09/06/19 025 Inactive hydralazine 50 mg tablet RxNorm: 938482 Take 1 Tablet(s) Oral QID 08/12/19 025 Inactive Soft Touch Lancets RxNorm: miscellaneous 03/04/20 24 025 Inactive venlafaxine ER 75 mg capsule,extended release 24 hr RxNorm: 607964 Take 3 Capsule(s) Oral QD 06/12/19 023 Inactive polyethylene glycol 3350 17 gram/dose oral powder RxNorm: 874763 Take 17=1 capful Gram(s) Oral BID as needed mix with 4-8oz of liquid 06/12/19 22 024 Inactive icosapent ethyl 1 gram capsule RxNorm: 6002426 Take 2 Capsule(s) (2 gm) Oral BID with meals 10/07/19 23 023 Inactive Okay to dispense one 2gm tab if you have that available. Levemir FlexTouch U-100 Insulin 100 unit/mL (3 mL) subcutaneous pen RxNorm: 224911 Inject 80 Unit(s) Subcutaneous BID 07/14/19 23 023 Inactive Novolog Flexpen U-100 Insulin aspart 100 unit/mL (3 mL) subcutaneous RxNorm: 0123037 Insert 30 Unit(s) Subcutaneous TID with meals [...] Planned Activity Notes Codes Status Date Referral: [id number] [place] [facility] Appointment Scheduled 10/20/2024 Referral: [facility]/Endocrinology WPtel: [id number] [place] Referral No Records Received 07/10/2024 Referral: [facility] WPtel: [phone] [id number] [place] Referral Records Received 09/21/2022 Referral: [facility] WPtel: [phone] [id number] [place] Referral Completed 05/28/2021 Referral: General Cardiology [...] Sister Jyotsna involved in his care cell# [phone] Guardian: Giulia (tapan met in person 09/01/21), [...] appointment 05.26.2024 with Jessa Webster MD at [facility]. Start Pioglitazone 15 mg QD. Stop Basaglar insulin. Increase Ozempic 2 mg once wkly. Continue Humalin R U-500 100 units with meals TID. FOLLOW UP 2 MONTHS. If BG >400 add 50 units to next scheduled dose of Humalin R U 500 insulin 06/12/2024
--- OUTSIDE RECORDS SUMMARY | 2024-10-19 19:24 | XMS_ITS | CCD ---
Author Organization Unknown Care Team Providers Care Auto Adjudication Specialist Name Role Phone Harrison Durham Primary Care Provider Leona vailable Unavailable Chronic Care Management Unavaila ble Summary Purpose DataExchange Insurance Providers Payer name Policy type / Coverage type Covered alliance party ID Effective Begin Date Effective End Date [place] [id number] Unknown Unknown [place] [id number] Unknown Unknown Family history Sister Brittany Suggs [...] on file 07/11/[address]: [id number] Never smoker 01/16 Sexually Active? Unknown No [...] 10/07/2021 Living arrangements Unknown Long Term 09/03/[address]: [id number] No Alcohol Consum ption 09/02/2020 Allergies, Adverse Reactions, Alerts Substance Reaction Codes Entered Date Inactivated Date Status * NO KNOWN FOOD ALLERGIES Unknown 07/13/2023 No Inactive Date Active LISINOPRIL RxNorm: 22021 02/12/2020 No Inactive Da te Active Metformin [...] E78. 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) dr ug therapy ICD-10: Z79.899 ICD-9: [...] 09/07/2023 Resolved Coronary artery disease invo lving yuhaaviatam coronary artery of [place] heart, angina presence unspecified ICD-10: I25.10 ICD-9: [...] Fill Instructions senna 8.6 mg tablet RxNorm: 173995 Take 1 Tablet(s) Oral QD 07/18/19 25 025 Inactive ezetimibe 10 mg tablet RxNorm: 141983 Take 1 Tablet(s) Oral QD 07/18/19 25 No Stop Date Active metoprolol succinate ER 200 mg tablet,extended release 24 hr RxNorm: 603350 Take 1 Tablet(s) Oral QD 06/19/19 25 No Stop Date Active pantoprazole 40 mg tablet,delayed release RxNorm: 930811 Take 1 Tablet(s) Oral QAM every morning 06/19/19 25 No Stop Date Active hydralazine 50 mg tablet RxNorm: 497877 Take 1 Tablet(s) Oral QID 06/19/19 25 No Stop Date Active carbamazepine 200 mg tablet RxNorm: 654595 Take 1 Tablet(s) Oral BID 06/19/19 25 No Stop Date Active amlodipine 10 mg tablet RxNorm: 853580 Take 1 Tablet(s) Oral QD 06/19/19 25 No Stop Date Active Eliquis 5 mg tablet RxNorm: 1966259 Take 1 Tablet(s) Oral BID 06/19/19 25 No Stop Date Active pen needle, diabetic 30 gauge x 3/16 RxNorm: Use 1 6 times per day w/insulin 06/14/19 25 026 Active pen needle, diabetic 30 gauge x 3/16 RxNorm: Use 1 needle 6 times per day w/insulin 06/14/19 25 025 Inactive nystatin 100,000 unit/gram topical powder RxNorm: 373147 Apply 1 Application Topical BID as needed abdominal/breast /groin folds 05/24/19 25 026 Active pregabalin 100 mg capsule RxNorm: 792223 Take 1 Capsule(s) Oral QAM every morning 05/22/19 25 025 Inactive nystatin 100,000 unit/gram topical powder RxNorm: 557746 Apply 1 Application Topical BID as needed abdominal/breast /groin folds 04/11/20 24 024 Inactive chlorthalidone 25 mg tablet RxNorm: 636143 Take 1 Tablet(s) Oral QAM every morning 04/06/20 24 No Stop Date Active pregabalin 150 mg capsule RxNorm: 013166 Take 1 Capsule(s) Oral QHS every night at bedtime 03/31/20 24 024 Inactive Vascepa 1 gram capsule RxNorm: 7902527 Take 2 Capsule(s) Oral BID 03/30/20 24 025 Active rosuvastatin 40 mg tablet RxNorm: 809761 1 TAB ORALLY EVERY EVENING (DX:CORONARY ARTERY DISEASE) 03/28/20 24 No Stop Date Active venlafaxine ER 75 mg capsule,extended release 24 hr RxNorm: 866065 3 CAPS (225MG) ORALLY DAILY (DX: MOOD DISORDER) 03/28/20 24 No Stop Date Active pregabalin 100 mg capsule RxNorm: 537541 Take 1 Capsule(s) Oral QAM every morning 03/20/20 24 024 Inactive cholecalciferol (vitamin D3) 1,250 mcg (50,000 unit) capsule RxNorm: 607892 Take 1 Capsule(s) Oral QW once a [...] Insulin 100 unit/mL (3 mL) subcutaneous RxNorm: 0973784 Inject 40 Unit(s) Subcutaneous BID 03/07/20 Inactive Please dispense one month supply. Humulin R U-500 (Concentrated) Insulin 500 unit/mL subcutaneous soln RxNorm: 666593 Inject 100 Unit(s) Subcutaneous AC before meals [...] PRN) to be use with new Accu Rocky meter 03/04/20 Inactive ok to substitute with any covered alternative test strip FreeStyle Chema 2 Sensor kit RxNorm: Use UD as directed 03/02/20 24 024 Inactive Pen Needle 30 gauge x 16 RxNorm: Pen(s) Use 1 needle as directed TID 03/02/20 24 Inactive nystatin 100,000 unit/gram topical powder RxNorm: 915753 Apply 1 Application Topical BID as needed [...] (Concentrated) Insulin 500 unit/mL subcutaneous soln RxNorm: 538637 Inject 100 Unit(s) Subcutaneous TID 02/17/20 24 024 Inactive Humulin R U-500 (Concentrated) Insulin 500 unit/mL subcutaneous soln RxNorm: 636642 Inject 100 Unit(s) Subcutaneous TID 02/10/20 24 024 Inactive Basaglar KwikPen U-100 Insulin 100 unit/mL (3 mL) subcutaneous RxNorm: 9167774 Inject 30 Unit(s) Subcutaneous BID 02/10/20 24 024 Inactive Please dispense one month supply. pregabalin 100 mg capsule RxNorm: 119874 Take 1 Capsule(s) Oral QAM every morning 02/07/20 24 024 Inactive isosorbide mononitrate ER 60 mg tablet,extended release 24 hr RxNorm: 926395 Take 1 Tablet(s) Oral QD 02/01/20 24 025 Active aripiprazole 15 mg tablet RxNorm: 896815 Take 1/2 Tablet(s) Oral QD 02/01/20 24 025 Active torsemide 20 mg tablet RxNorm: 873186 1 TAB ORALLY DAILY (DX: EDEMA) 01/27/20 24 No Stop Date Active potassium chloride ER 20 mEq tablet,extended release(part/cryst) RxNorm: 6556240 2 TABS (40MEQ) ORALLY TWICE DAILY (DX: HYPOKALEMIA) 01/27/20 24 025 Inactive cephalexin 500 mg capsule RxNorm: 942979 Take 1 Capsule(s) Oral QID 12/17/19 24 024 Inactive cephalexin 500 mg capsule RxNorm: 894758 Take 1 Capsule(s) Oral QID 12/17/19 24 024 Inactive acetaminophen 500 mg tablet RxNorm: 172184 (MAX APAP:4GM/24HR) Take 1 Tablet(s) Oral TID as needed for pain 12/10/19 24 Inactive torsemide 20 mg tablet RxNorm: 866149 Take 1 Tablet(s) Oral QD 10/26/19 Inactive potassium chloride ER 20 mEq tablet,extended release RxNorm: 423787 Take 2 Tablet(s) Oral BID 10/26/19 24 025 Inactive torsemide 20 mg tablet RxNorm: 250964 Take 1 Tablet(s) Oral QD 10/26/19 24 024 Inactive potassium chloride ER 20 mEq tablet,extended release RxNorm: 325155 Take 2 Tablet(s) Oral BID 10/26/19 24 024 Inactive Artificial Tears (PF) 0.1 %-0.3 % drops in a dropperette RxNorm: 865994 Apply 1-2 Drop(s) Both eyes BID as needed 09/28/19 24 025 Inactive erythromycin 5 mg/gram (0.5 %) eye ointment RxNorm: 557961 Apply 1 Application Both eyes QHS every night at bedtime Instill ~1 cm ribbon into affected eye 09/28/19 24 Inactive Artificial Tears (PF) 0.1 %-0.3 % drops in a dropperette RxNorm: 846054 Apply 1-2 Drop(s) Both eyes BID as needed 09/28/19 24 024 Inactive erythromycin 5 mg/gram (0.5 %) eye ointment RxNorm: 378968 Apply 1 Application Both eyes QHS every night at bedtime Instill ~1 cm ribbon into affected eye 09/28/19 24 024 Inactive acetaminophen 500 mg tablet RxNorm: 508624 (MAX APAP:4GM/24HR) Take 1 Tablet(s) Oral TID as needed for pain 09/24/19 24 024 Inactive carvedilol 25 mg tablet RxNorm: 112159 Take 1 Tablet(s) Oral QD 09/08/19 24 No Stop Date Active pregabalin 100 mg capsule RxNorm: 221074 Take 1 Capsule(s) Oral QAM every morning 09/07/19 24 024 Inactive ezetimibe 10 mg tablet RxNorm: 278853 Take 1 Tablet(s) Oral QD 07/13/19 24 025 Inactive bisacodyl 10 mg rectal suppository RxNorm: 962789 Insert 1 Suppository Rectal QD as needed 07/13/19 24 No Stop Date Active polyethylene glycol 3350 17 gram/dose oral powder RxNorm: 016057 Take 17 Gram(s) Oral BID as needed mix in 4-8ox water 07/13/19 24 025 Inactive ketoconazole 2 % shampoo RxNorm: 208889 Apply 1 Application Topical UD as directed 07/13/19 No Stop Date Active Ozempic 1 mg/dose (4 mg/3 mL) subcutaneous pen injector RxNorm: 2213841 Inject 1 Milligram(s) Subcutaneous QW once a week 07/13/19 24 No Stop Date Active Guaifenesin AC 10 mg-100 mg/5 mL oral liquid RxNorm: 006517 Take 10 Milliliter(s) Oral Q4H every four hours as needed 07/13/19 24 No Stop Date Active ammonium lactate 12 % topical cream RxNorm: 309441 Apply 1 Application Topical BID 07/13/19 24 025 Inactive hydrocortisone 2.5 % topical cream RxNorm: 274167 Apply 1 Application Topical BID as needed 07/13/19 24 No Stop Date Active rosuvastatin 20 mg sprinkle capsule RxNorm: 8696213 Take 1 Capsule(s) Oral QD 07/13/19 24 025 Inactive rosuvastatin 40 mg tablet RxNorm: 823882 Take 1 Tablet(s) Oral QPM every evening 07/13/19 24 024 Inactive aripiprazole 15 mg tablet RxNorm: 808604 Take 1/2 Tablet(s) Oral QD 07/13/19 24 024 Inactive isosorbide mononitrate ER 60 mg tablet,extended release 24 hr RxNorm: 026777 Take 1 Tablet(s) Oral QD 07/13/19 24 024 Inactive Vascepa 1 gram capsule RxNorm: 5877342 Take 2 Capsule(s) Oral BID 07/13/19 24 024 Inactive venlafaxine ER 75 mg capsule,extended release 24 hr RxNorm: 824122 Take 3 Capsule(s) Oral QD 07/13/19 24 024 Inactive Basaglar KwikPen U-100 Insulin 100 unit/mL (3 mL) subcutaneous RxNorm: 0849840 Inject 30U SubQ twice daily 07/07/19 24 024 Inactive Please dispense one month supply. Basaglar KwikPen U-100 Insulin 100 unit/mL (3 mL) subcutaneous RxNorm: 3960756 Inject 30U SubQ twice daily 07/07/19 24 024 Inactive Please dispense one month supply. pregabalin 150 mg capsule RxNorm: 439635 Take 1 Capsule(s) Oral QHS every night at bedtime 07/05/19 24 024 Inactive pregabalin 150 mg capsule RxNorm: 116589 Take 1 Capsule(s) Oral QHS every night at bedtime 07/05/19 24 024 Inactive polyethylene glycol 3350 17 gram/dose oral powder RxNorm: 407683 Take 1 Packet Oral QD as needed (1 packet = 17g) mix with 4-8oz of liquid 06/15/19 24 024 Inactive bisacodyl 10 mg rectal suppository RxNorm: 434028 Insert one suppository per rectum once daily as needed for constipation 06/15/19 24 024 Inactive bisacodyl 10 mg rectal suppository RxNorm: 417162 Insert one suppository per rectum once daily as needed for constipation 06/15/19 24 024 Inactive pregabalin 100 mg capsule RxNorm: 322280 Take 1 Capsule(s) Oral QAM every morning 04/27/20 024 Inactive Levemir FlexPen 100 unit/mL (3 mL) solution subcutaneous insulin pen RxNorm: 645416 Inject 30 Unit(s) Subcutaneous BID 04/27/20 024 Inactive rosuvastatin 40 mg tablet RxNorm: 983016 Take 1 Tablet(s) Oral QPM every evening 04/16/20 024 Inactive D/C rosuvastatin 20mg venlafaxine ER 75 mg capsule,extended release 24 hr RxNorm: 707782 Take 3 Capsule(s) Oral QD 04/14/20 023 Inactive pregabalin 100 mg capsule RxNorm: 027639 Take 1 Capsule(s) Oral QAM every morning [...] strip clotrimazole 1 % topical cream RxNorm: 478386 Take apply topically to abdominal folds twice daily for 14 days 03/12/20 024 Inactive Ozempic 1 mg/dose (4 mg/3 mL) subcutaneous pen injector RxNorm: 9959977 Inject 1 Milligram(s) Subcutaneous QW once a week 03/11/20 023 Inactive rosuvastatin 20 mg tablet RxNorm: 565152 Take 1 Tablet(s) Oral QD 02/26/20 023 Inactive d/c pravastatin 80mg Ozempic 1 mg/dose (4 mg/3 mL) subcutaneous pen injector RxNorm: 5602178 Inject 1 Milligram(s) Subcutaneous QW once a week 02/20/20 23 023 Inactive pregabalin 150 mg capsule RxNorm: 215710 Take 1 Capsule(s) Oral HS at bed time 02/19/20 23 023 Inactive pregabalin 100 mg capsule RxNorm: 793949 Take 1 Capsule(s) Oral QAM every morning 02/18/20 23 023 Inactive venlafaxine ER 75 mg capsule,extended release 24 hr RxNorm: 880373 Take 3 Capsule(s) Oral QD 02/04/20 023 Inactive FreeStyle Chema 2 Sensor kit RxNorm: use as directed 02/04/20 23 023 Inactive FreeStyle Chema 2 Sensor kit RxNorm: use as directed 02/04/20 024 Inactive fluconazole 150 mg tablet RxNorm: 898226 Take 1 Tablet(s) Oral on day 3 and on day 6 02/03/20 024 Inactive venlafaxine ER 150 mg capsule,extended release 24 hr RxNorm: 346231 Take 1 Capsule(s) Oral QD 02/03/20 023 Inactive chlorthalidone 25 mg tablet RxNorm: 519488 Take 1 Tablet(s) Oral QAM every morning 02/03/20 23 024 Inactive acetaminophen 500 mg tablet RxNorm: 758882 1 TABLET ORALLY 3 TIMES DAILY (MAX APAP:4GM/24HR) 12/15/19 23 023 Inactive clotrimazole 1 % topical cream RxNorm: 233411 apply 1g topically to top of feet and in between toes BID 12/09/19 23 025 Inactive potassium chloride ER 20 mEq tablet,extended release RxNorm: 469993 Take 1 Tablet(s) Oral BID 12/09/19 23 024 Inactive d/c 20mEq once daily (sent from hospital) nystatin 100,000 unit/gram topical powder RxNorm: 707091 APPLY TO AFFECTED AREAS TOPICALLY 2 TIMES DAILY 11/21/19 23 023 Inactive Nystop 100,000 unit/gram topical powder RxNorm: 357164 Apply to abd folds, under breasts and L side of groin Topical BID x 14 days, then BID PRN 11/20/19 23 023 Inactive dx: yeast dermatitis [place] Ultra Strength 4 %-30 %-10 % topical cream RxNorm: 450502 Apply 1 Gram(s) Topical QID PRN to feet and legs for neuropathic pain 11/11/19 23 024 Inactive clotrimazole 1 % topical cream RxNorm: 031148 Apply 1/2 Gram(s) Topical BID Apply to affected areas of groin, periarea, and abdominal topically 2 times daily 11/10/19 23 023 Inactive hydrocortisone 2.5 % topical cream RxNorm: 312840 Apply 1/2 Gram(s) Topical BID as needed 11/10/19 024 Inactive Levemir FlexPen 100 unit/mL (3 mL) solution subcutaneous insulin pen RxNorm: 174682 Inject 30 Unit(s) Subcutaneous BID 10/07/19 023 Inactive Humulin R U-500 (Concentrated) Insulin 500 unit/mL subcutaneous soln RxNorm: 223232 Inject 100 Unit(s) Subcutaneous TID 10/07/19 024 Inactive Ozempic 0.25 mg or 0.5 mg (2 mg/3 mL) subcutaneous pen injector RxNorm: 8705450 Inject 1/2 Milligram(s) Subcutaneous QW once a week 10/07/19 024 Inactive aripiprazole 15 mg tablet RxNorm: 705246 1/2 TAB (7.5MG) ORALLY DAILY (DX:MAJOR DEPRESSIVE DISORDER) 09/23/19 023 Inactive Accu-Chek Guide test strips RxNorm: Use 1 Test Strip QID 09/15/19 23 023 Inactive ok to substitute with any covered alternative test strip Lancets,Thin 28 gauge RxNorm: Use 1 as directed QID 09/15/19 23 023 Inactive torsemide 20 mg tablet RxNorm: 435016 Take 1 Tablet(s) Oral BID 09/09/19 23 024 Inactive d/c once daily dosing carvedilol 25 mg tablet RxNorm: 893986 Take 1 Tablet(s) Oral QD 08/25/19 23 024 Inactive pregabalin 150 mg capsule RxNorm: 644677 1 Capsule(s) Oral HS at bed time 08/18/19 23 023 Inactive pregabalin 100 mg capsule RxNorm: 614955 1 Capsule(s) Oral QAM every morning 08/18/19 23 023 Inactive carvedilol 25 mg tablet RxNorm: 943010 1 Tablet(s) Oral QD 07/28/19 23 023 Inactive lisinopril 20 mg tablet RxNorm: 082419 Give 1 Tablet(s) Oral QD 07/28/19 23 023 Inactive Lyrica 150 mg capsule RxNorm: 135944 Take 1 Capsule(s) Oral QHS every night at bedtime 07/19/19 023 Inactive d/c 100mg dose Diflucan 150 mg tablet RxNorm: 479737 Take 1 Tablet(s) Oral QD repeat on day 3 and 6 07/19/19 23 023 Inactive pregabalin 100 mg capsule RxNorm: 252203 Take 1 Capsule(s) Oral QAM every morning 07/19/19 23 023 Inactive gatifloxacin 0.5 % eye drops RxNorm: 696511 Instill 1 Drop(s) as directed TID Instill 1 drop in to affected eye(s) starting 1 day prior to surgery and continue until gone (do not exceed 4 weeks). 07/13/19 23 023 Inactive carvedilol 25 mg tablet RxNorm: 231279 2 Tablet(s) Oral BID 07/13/19 23 023 Inactive Humulin R Regular U-100 Insulin 100 unit/mL injection solution RxNorm: 738367 85 Unit(s) Injection TID 07/13/19 23 023 Inactive ketorolac 0.5 % eye drops RxNorm: 536763 Instill 1 Drop(s) as directed QID Instill 1 drop into affected eye(s) 4 times daily starting 1 day prior to surgery and continue until gone (do not exceed 4 weeks). 07/13/19 23 023 Inactive Diflucan 150 mg tablet RxNorm: 052906 Take 1 Tablet(s) Oral QD repeat on day 3 and 6 06/30/19 23 023 Inactive Accu-Chek Guide test strips RxNorm: Use 1 Test Strip QID Use 1 test strip to monitor blood glucose 4 times daily and as needed. Dx:E11.42. 06/23/19 23 023 Inactive ok to substitute with any covered alternative test strip dextromethorphan-gu aifenesin 10 mg-100 mg/5 mL oral liquid RxNorm: 203445 Take 10 Milliliter(s) Oral every 4 hours as needed for cough 06/19/19 023 Inactive dextromethorphan-gu aifenesin 10 mg-100 mg/5 mL oral liquid RxNorm: 956655 Take 10 Milliliter(s) Oral every 4 hours as needed for cough 06/19/19 023 Inactive Lyrica 150 mg capsule RxNorm: 149810 Take 1 Capsule(s) Oral QHS every night at bedtime 06/18/19 023 Inactive d/c 100mg dose aripiprazole 15 mg tablet RxNorm: 055514 1/2 TAB (7.5MG) ORALLY DAILY (DX:MAJOR DEPRESSIVE DISORDER) 06/05/19 023 Inactive pregabalin 100 mg capsule RxNorm: 180386 1 Capsule(s) Oral QAM every morning 06/02/19 23 023 Inactive Banophen 50 mg capsule RxNorm: 8724767 Take 1 Capsule(s) Oral Q6H every 6 hours as needed 05/19/19 23 No Stop Date Active Novolog Flexpen U-100 Insulin aspart 100 unit/mL (3 mL) subcutaneous RxNorm: 2538423 Inject 10 Unit(s) Subcutaneous QHS every night at bedtime with nighttime snack 04/08/20 22 022 Inactive Novolog Flexpen U-100 Insulin aspart 100 unit/mL (3 mL) subcutaneous RxNorm: 9979790 Inject 42 Unit(s) Subcutaneous TID in addition to sliding scale 04/08/20 22 022 Inactive d/c 36u albuterol sulfate HFA 90 mcg/actuation aerosol inhaler RxNorm: 8121957 Take 2 Puff(s) Inhalation Q4H every four hours as needed as needed for SOB, cough, or wheezing 04/07/20 030 Active Banophen 50 mg capsule RxNorm: 3019634 Take 1 Capsule(s) Oral Q6H every 6 hours as needed 04/06/20 023 Inactive diphenhydramine 50 mg tablet RxNorm: 5172020 Take 1 Tablet(s) Oral Q6H every 6 hours as needed 04/06/20 022 Inactive diphenhydramine 50 mg tablet RxNorm: 3568930 1 Tablet(s) Oral Q6H every 6 hours as needed 04/06/20 022 Inactive Abilify 15 mg tablet RxNorm: 577175 1/2 Tablet(s) Oral QD 03/10/20 023 Inactive Shingrix (PF) 50 mcg/0.5 mL intramuscular suspension, kit RxNorm: 2733956 Administer 1/2 Milliliter(s) Intramuscular QD one time shingrix step 2 ( step 1 given 11/04/21) WITH needle - Nursing please administer upon arrival and once administered post a bridge message with date of administration, filleter, expiration date, and lot# so we can update [facility] 02/18/20 22 022 Inactive dispense with needle Shingrix (PF) 50 mcg/0.5 mL intramuscular suspension, kit RxNorm: 0427746 Administer 1/2 Milliliter(s) Intramuscular QD one time shingrix step 2 ( step 1 given 11/04/21) WITH needle - Nursing please administer upon arrival and once administered post a bridge message with date of administration, filleter, expiration date, and lot# so we can update [facility] 02/18/20 22 022 Inactive dispense with needle polyethylene glycol 3350 17 gram/dose oral powder RxNorm: 940758 Take 17=1 capful Gram(s) Oral QD mix with 4-8oz of liquid 01/08/20 22 025 Inactive take this in addition to BID prn order Lyrica 100 mg capsule RxNorm: 167571 Take 1 Capsule(s) Oral QAM every morning 01/08/20 22 022 Inactive d/c 50mg dose acetaminophen 500 mg tablet RxNorm: 474189 Take 1 Tablet(s) Oral TID 01/08/20 22 022 Inactive d/c PRN order Lyrica 150 mg capsule RxNorm: 070490 Take 1 Capsule(s) Oral QHS every night at bedtime 01/08/20 22 023 Inactive d/c 100mg dose Abilify 5 mg tablet RxNorm: 219887 Take 1 Tablet(s) Oral QD take 1 tab po QD #30 refill 5 dx: MDD 12/12/19 22 022 Inactive Abilify 5 mg tablet RxNorm: 140730 Take 1 Tablet(s) Oral QD take 1 tab po QD #30 refill 5 dx: MDD 12/12/19 22 022 Inactive Novolog Flexpen U-100 Insulin aspart 100 unit/mL (3 mL) subcutaneous RxNorm: 8885667 Inject 42 Unit(s) Subcutaneous TID in addition to sliding scale 12/10/19 22 022 Inactive d/c 36u chlorthalidone 25 mg tablet RxNorm: 315247 Take 1 Tablet(s) Oral QAM every morning 12/10/19 22 023 Inactive pregabalin 50 mg capsule RxNorm: 052069 Take 1 Capsule(s) Oral QAM every morning 11/12/19 22 022 Inactive tetanus-diphtheria toxoids-Td 2 Lf unit-2 Lf unit/0.5 mL IM suspension RxNorm: 139 Take 0.5 Miscellaneous Intramuscular 11/12/19 22 022 Inactive need tdap - nursing to administer upon arrival pregabalin 50 mg capsule RxNorm: 643708 Take 1 Capsule(s) Oral QAM every morning 10/16/19 22 022 Inactive pregabalin 50 mg capsule RxNorm: 163470 Take 1 Capsule(s) Oral QAM every morning 10/16/19 22 022 Inactive pregabalin 50 mg capsule RxNorm: 510670 1 Capsule(s) Oral QAM every morning 10/15/19 22 022 Inactive Shingrix (PF) 50 mcg/0.5 mL intramuscular suspension, kit RxNorm: 1487785 Administer 1/2 Milliliter(s) Intramuscular one time Nursing please administer upon arrival and once administered post a bridge message with date of administration, filleter, expiration date, and lot# so we can update [facility]. 10/09/19 22 022 Inactive shingrix step 1 Shingrix (PF) 50 mcg/0.5 mL intramuscular suspension, kit RxNorm: 6161466 Administer 1/2 Milliliter(s) Intramuscular one time Nursing please administer upon arrival and once administered post a bridge message with date of administration, filleter, expiration date, and lot# so we can [...] aspart 100 unit/mL (3 mL) subcutaneous RxNorm: 5629083 Inject 10 Unit(s) Subcutaneous QHS every night at bedtime with nighttime snack 10/08/19 22 Inactive Shingrix (PF) 50 mcg/0.5 mL intramuscular suspension, kit RxNorm: 6273217 ADMINISTER 2-DOSE SERIES PER CDC GUIDELINES 10/08/19 22 Active Shingrix (PF) 50 mcg/0.5 mL intramuscular suspension, kit RxNorm: 5496783 ADMINISTER 2-DOSE SERIES PER CDC GUIDELINES 10/08/19 22 Inactive Novolog Flexpen U-100 Insulin aspart 100 unit/mL (3 mL) subcutaneous RxNorm: 3534831 Inject 36 Unit(s) Subcutaneous TID in addition to sliding scale 10/08/19 22 022 Inactive cholecalciferol (vitamin D3) 1,250 mcg (50,000 unit) capsule RxNorm: 050941 Take 1 Capsule(s) Oral QW once a week 10/08/19 024 Inactive Novofine Autocover 30 gauge x 1/3 needle RxNorm: Use 1 Miscellaneous UD as directed Use 1 needle as directed to administer insulin 5 times a day Dx:E11.42. 10/03/19 022 Inactive ok to substitute with any covered alternative pen needle benzoyl peroxide 10 % topical cleanser RxNorm: 371941 Apply 1 Application Topical QD apply to face, wash rinse and dry once daily (may change to QOD if drying) 08/19/19 022 Inactive (%covered by insurance) #60ml refill 11 dx: acne benzoyl peroxide 10 % topical cleanser RxNorm: 222247 Apply 1 Application Topical QD apply to face, wash rinse and dry once daily (may change to QOD if drying) 08/19/19 022 Inactive (%covered by insurance) #60ml refill 11 dx: acne benzoyl peroxide 10 % topical cleanser RxNorm: 269424 Apply 1 Application Topical QD apply to face, wash rinse and dry once daily (may change to QOD if drying) 08/19/19 22 022 Inactive (%covered by insurance) #60ml refill 11 dx: acne Lyrica 50 mg capsule RxNorm: 345672 Take 1 Capsule(s) Oral QAM every morning Take 1 capsule by mouth once daily 08/19/19 022 Inactive benzoyl peroxide 10 % topical cleanser RxNorm: 425373 Apply 1 Application Topical QD apply to face, wash rinse and dry once daily (may change to QOD if drying) 08/19/19 022 Inactive (%covered by insurance) #60ml refill 11 dx: acne Lyrica 100 mg capsule RxNorm: 437386 Take 1 Capsule(s) Oral QHS every night at bedtime Take 1 capsule by mouth once daily at bedtime 08/19/19 22 022 Inactive Lyrica 100 mg capsule RxNorm: 050737 Take 1 Capsule(s) Oral QHS every night at bedtime Take 1 capsule by mouth once daily at bedtime 08/16/19 22 022 Inactive Lyrica 50 mg capsule RxNorm: 276192 Take 1 Capsule(s) Oral QAM every morning Take 1 capsule by mouth once daily 08/16/19 22 022 Inactive Levemir FlexTouch U-100 Insulin 100 unit/mL (3 mL) subcutaneous pen RxNorm: 985456 Inject 86 Unit(s) Subcutaneous BID 08/05/19 22 022 Inactive d/c 83units BID Lyrica 100 mg capsule RxNorm: 383768 Take 1 Capsule(s) Oral QHS every night at bedtime Take 1 capsule by mouth once daily at bedtime 07/14/19 22 022 Inactive Lyrica 50 mg capsule RxNorm: 042373 Take 1 Capsule(s) Oral QAM every morning Take 1 capsule by mouth once daily 07/14/19 22 022 Inactive Levemir FlexTouch U-100 Insulin 100 unit/mL (3 mL) subcutaneous pen RxNorm: 066000 Inject 83 Unit(s) Subcutaneous BID 07/08/19 22 [...] test strip hydralazine 50 mg tablet RxNorm: 648437 Take 1 Tablet(s) Oral QID 05/05/20 21 022 Inactive venlafaxine ER 225 mg tablet,extended release 24 hr RxNorm: 417474 Take 1 Tablet(s) Oral QD 05/05/20 21 021 Inactive venlafaxine ER 225 mg tablet,extended release 24 hr RxNorm: 210313 Take 1 Tablet(s) Oral QD 05/05/20 022 Inactive isosorbide mononitrate ER 30 mg tablet,extended release 24 hr RxNorm: 354291 Take 1 Tablet(s) Oral QD 05/05/20 21 024 Inactive hydralazine 50 mg tablet RxNorm: 644017 Take 1 Tablet(s) Oral QID 05/05/20 21 Inactive aspirin 81 mg tablet,delayed release RxNorm: 350712 Take 1 Tablet(s) Oral QD 03/31/20 022 Inactive Vitamin D2 1,250 mcg (50,000 unit) capsule RxNorm: 1726992 Take 1 Capsule(s) Oral QW once a week x 12 weeks 03/31/20 022 Inactive Vitamin D2 1,250 mcg (50,000 unit) capsule RxNorm: 3396714 Take 1 Capsule(s) Oral QW once a week 03/31/20 021 Inactive Zetia 10 mg tablet RxNorm: 202238 Take 1 Tablet(s) Oral QD 03/31/20 21 024 Inactive Zetia 10 mg tablet RxNorm: 684617 Take 1 Tablet(s) Oral QD 03/31/20 21 021 Inactive hydralazine 25 mg tablet RxNorm: 562948 Take 1 Tablet(s) Oral QID 03/31/20 021 Inactive hydralazine 25 mg tablet RxNorm: 769020 Take 1 Tablet(s) Oral QID 03/31/20 021 Inactive hydralazine 10 mg tablet RxNorm: 269784 Take 1 Tablet(s) Oral QID 03/03/20 021 Inactive cephalexin 500 mg tablet RxNorm: 804168 Take 1 Tablet(s) Oral QID 02/27/20 021 Inactive cephalexin 500 mg tablet RxNorm: 628558 Take 1 Tablet(s) Oral QID 02/27/20 021 Inactive lisinopril 40 mg tablet RxNorm: 065279 Take 1 Tablet(s) Oral QD 02/11/20 023 Inactive Eliquis 5 mg tablet RxNorm: 6634444 Take 1 Tablet(s) Oral BID 01/05/20 21 025 Inactive Eliquis 5 mg tablet RxNorm: 8711162 Take 2 Tablet(s) Oral QD 01/01/20 21 021 Inactive Lyrica 50 mg capsule RxNorm: 990711 Take 1 Capsule(s) Oral QAM every morning 12/24/19 21 021 Inactive Lyrica 100 mg capsule RxNorm: 165975 Take 1 Capsule(s) Oral QHS every night at bedtime 12/24/19 21 021 Inactive clotrimazole 1 % topical cream RxNorm: 111413 Apply to right foot and toes Topical BID 12/04/19 21 023 Inactive metoprolol succinate ER 200 mg tablet,extended release 24 hr RxNorm: 927938 Take 1 Tablet(s) Oral QD 12/04/19 21 023 Inactive ciprofloxacin 500 mg tablet RxNorm: 330527 Take 1 Tablet(s) Oral QD 11/30/19 21 021 Inactive DX ofloxacin otic drops Accu-Chek Guide test strips RxNorm: USE 1 TO CHECK GLUCOSE 4 TIMES DAILY AND NEEDED 11/15/19 21 023 Inactive Blood Glucose Test strips RxNorm: Use 1 Test Strip QID at PRN 11/05/19 21 023 Inactive E11.42 lisinopril 30 mg tablet RxNorm: 341517 Take 1 Tablet(s) Oral QD 10/30/19 21 021 Inactive lisinopril 20 mg tablet RxNorm: 563292 Take 1 Tablet(s) Oral QD 10/23/19 21 021 Inactive lisinopril 20 mg tablet RxNorm: 526056 Take 1 Tablet(s) Oral QD 10/23/19 21 021 Inactive lisinopril 10 mg tablet RxNorm: 455051 Take 1 Tablet(s) Oral QD 10/02/19 21 021 Inactive icosapent ethyl 1 gram capsule RxNorm: 0964627 Take 2 Capsule(s) (2 gm) Oral BID with meals 09/12/19 21 024 Inactive Okay to dispense one 2gm tab if you have that available. icosapent ethyl 1 gram capsule RxNorm: 1739462 Take 2 Capsule(s) Oral BID 09/12/19 21 021 Inactive Okay to dispense one 2gm tab if you have that available. amlodipine 10 mg tablet RxNorm: 684390 Take 1 Tablet(s) Oral QD 09/04/19 21 021 Inactive aspirin 81 mg tablet,delayed release RxNorm: 601973 Take 1 Tablet(s) Oral QD 09/04/19 21 021 Inactive Levemir FlexTouch U-100 Insulin 100 unit/mL (3 mL) subcutaneous pen RxNorm: 678384 Inject 150 Unit(s) Subcutaneous BID 09/04/19 21 022 Inactive venlafaxine ER 150 mg tablet,extended release 24 hr RxNorm: 663763 Take 1 Tablet(s) Oral QD 09/04/19 21 021 Inactive clotrimazole-betame thasone 1 %-0.05 % topical cream RxNorm: 128863 Apply to rash on red area on left abdomen/chest Topical BID 08/10/19 21 021 Inactive amlodipine 5 mg tablet RxNorm: 717337 Take 1 Tablet(s) Oral QD 07/31/19 21 021 Inactive cephalexin 500 mg tablet RxNorm: 045173 Take 1 Tablet(s) Oral BID BID - Twice Daily 07/31/19 21 021 Inactive Start 08/01/20 senna 8.6 mg tablet RxNorm: 354409 Take 1 Tablet(s) Oral QD 07/08/19 025 Inactive pantoprazole 40 mg tablet,delayed release RxNorm: 202506 Take 1 Tablet(s) Oral QAM every morning 07/08/19 025 Inactive clopidogrel 75 mg tablet RxNorm: 575810 Take 1 Tablet(s) Oral QD 07/08/19 021 Inactive Blood Glucose Test strips RxNorm: Use 1 Test Strip QID at PRN 07/08/19 Inactive E11.42 Novolog Flexpen U-100 Insulin aspart 100 unit/mL (3 mL) subcutaneous RxNorm: 8107397 Administer per sliding scale Milliliter(s) Subcutaneous TID 151-200: 10 u; 201-250: 20 u; 251-300: 30 u; 301-350: 40 u; 351-400: 50 u. 07/08/19 022 Inactive lisinopril 5 mg tablet RxNorm: 580499 Take 1 Tablet(s) Oral QD 07/08/19 021 Inactive Novolog Flexpen U-100 Insulin aspart 100 unit/mL (3 mL) subcutaneous RxNorm: 3866124 Inject 85 Unit(s) Subcutaneous TID 07/08/19 21 022 Inactive pravastatin 80 mg tablet RxNorm: 425369 Take 1 Tablet(s) Oral QHS every night at bedtime 07/08/19 023 Inactive clotrimazole 1 % topical cream RxNorm: 878961 Apply to bilateral groin areas Topical BID 07/08/19 21 022 Inactive metoprolol succinate ER 200 mg tablet,extended release 24 hr RxNorm: 023657 Take 1 Tablet(s) Oral QD 07/08/19 21 021 Inactive Vitamin D3 25 mcg (1,000 unit) tablet RxNorm: 329099 Take 1 Tablet(s) Oral QD 07/08/19 21 021 Inactive isosorbide dinitrate 30 mg tablet RxNorm: 265439 Take 1 Tablet(s) Oral QD 07/08/19 021 Inactive carbamazepine 200 mg tablet RxNorm: 595417 Take 1 Tablet(s) Oral BID 07/08/19 21 025 Inactive Levemir FlexTouch U-100 Insulin 100 unit/mL (3 mL) subcutaneous pen RxNorm: 221020 Inject 140 Unit(s) Subcutaneous BID 07/08/19 021 Inactive torsemide 20 mg tablet RxNorm: 272218 Take 1 Tablet(s) Oral QD 07/08/19 023 Inactive venlafaxine 75 mg tablet RxNorm: 369933 Take 1 Tablet(s) Oral QD 07/08/19 021 Inactive acetaminophen 500 mg tablet RxNorm: 104281 Take 1 Tablet(s) Oral TID as needed for headache 06/18/19 21 021 Inactive acetaminophen 500 mg tablet RxNorm: 097770 Take 1 Tablet(s) Oral TID as needed for headache 06/18/19 21 021 Inactive Lyrica 100 mg capsule RxNorm: 028464 Take 1 Capsule(s) Oral QHS every night at bedtime 06/11/19 021 Inactive Lyrica 50 mg capsule RxNorm: 255856 Take 1 Capsule(s) Oral QAM every morning 06/10/19 21 021 Inactive hydrocortisone 2.5 % topical cream RxNorm: 612072 Apply to bilateral groin creases Topical BID 05/15/20 20 021 Inactive clotrimazole 1 % topical cream RxNorm: 521462 Apply to bilateral groin areas Topical BID 05/15/20 20 021 Inactive Lyrica 50 mg capsule RxNorm: 599094 Take 1 Capsule(s) Oral QAM every morning 05/14/20 20 020 Inactive Lyrica 100 mg capsule RxNorm: 766279 Take 1 Capsule(s) Oral QHS every night [...] Inactive Nystop 100,000 unit/gram topical powder RxNorm: 733651 Apply to abd folds, under breasts and L side of groin Topical BID x 14 days, then BID PRN 04/08/20 20 Inactive dx: yeast dermatitis Lyrica 100 mg capsule RxNorm: 792420 Take 1 Capsule(s) Oral QHS every night at bedtime 03/13/20 20 Inactive Lyrica 50 mg capsule RxNorm: 814823 Take 1 Capsule(s) Oral QAM every morning 03/13/20 20 Inactive ketoconazole 2 % shampoo RxNorm: 641737 Apply Topical two times a week with showers 03/11/20 20 Inactive cholecalciferol (vitamin D3) 50 mcg (2,000 unit) tablet RxNorm: 904299 Take 1 Tablet(s) Oral QD 03/11/20 20 021 Inactive Zetia 10 mg tablet RxNorm: 501722 Take 1 Tablet(s) Oral QD 03/07/20 20 021 Inactive Zetia 10 mg tablet RxNorm: 048757 Take 1 Tablet(s) Oral QD 03/07/20 20 020 Inactive Lyrica 50 mg capsule RxNorm: 136322 Take 1 Capsule(s) Oral QAM every morning 02/15/20 20 Inactive Lyrica 100 mg capsule RxNorm: 498675 Take 1 Capsule(s) Oral QHS every night at bedtime 02/15/20 Inactive Lyrica 100 mg capsule RxNorm: 139969 Take 1 Capsule(s) Oral QHS every night at bedtime 02/15/20 Inactive Lyrica 50 mg capsule RxNorm: 611507 Take 1 Capsule(s) Oral QAM every morning 02/15/20 20 Inactive loperamide 2 mg capsule RxNorm: 017830 Take 1 Capsule(s) Oral QID as needed 09/06/19 025 Inactive venlafaxine ER 75 mg capsule,extended release 24 hr RxNorm: 006954 Take 3 Capsule(s) Oral QD 06/12/19 023 Inactive polyethylene glycol 3350 17 gram/dose oral powder RxNorm: 199049 Take 17=1 capful Gram(s) Oral BID as needed mix with 4-8oz of liquid 06/12/19 22 024 Inactive icosapent ethyl 1 gram capsule RxNorm: 2991126 Take 2 Capsule(s) (2 gm) Oral BID with meals 10/07/19 023 Inactive Okay to dispense one 2gm tab if you have that available. Levemir FlexTouch U-100 Insulin 100 unit/mL (3 mL) subcutaneous pen RxNorm: 631546 Inject 80 Unit(s) Subcutaneous BID 07/14/19 23 023 Inactive metoprolol succinate ER 200 mg tablet,extended release 24 hr RxNorm: 944976 Take 1 Tablet(s) Oral QD 08/12/19 23 025 Inactive hydralazine 50 mg tablet RxNorm: 759484 Take 1 Tablet(s) Oral QID 08/12/19 23 025 Inactive Soft Touch Lancets RxNorm: miscellaneous 03/04/20 24 025 Inactive Novolog Flexpen U-100 Insulin aspart 100 unit/mL (3 mL) subcutaneous RxNorm: 7702799 Insert 30 Unit(s) Subcutaneous TID with meals [...] Planned Activity Notes Codes Status Date Referral: [facility] [address] [id number] [facility] Appointment Scheduled 10/20/2024 Referral: [facility]/Endocrinology WPtel: [address] [facility] [id number] [place] Referral No Records Received 07/10/2024 Referral: [facility] WPtel: [phone] [id number] [place] Referral Records Received 09/21/2022 Referral: [facility] WPtel: [phone] [id number] [place] Referral Completed 05/28/2021 Referral: General Cardiology [...] a hospitalization 05/2021 he moved to the [facility] to have closer nursing attention. Sister Jyotsna involved in his care cell# [phone] Guardian: Giulia (tapan met in person 09/01/21), [...] appointment 05.26.2024 with Jessa Webster MD at [facility]. Start Pioglitazone 15 mg QD. Stop Basaglar insulin. Increase Ozempic 2 mg once wkly. Continue Humalin R U-500 100 units with meals TID. FOLLOW UP 2 MONTHS. If BG >400 add 50 units to next scheduled dose of Humalin R U 500 insulin 06/12/2024
--- OUTSIDE RECORDS SUMMARY | 2024-10-19 19:25 | XMS_ITS | CCD ---
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 Unknown No [...] 10/07/2021 Living arrangements Unknown Care Home 09/03/[address]: 581626120 No Alcohol Consum ption 09/02/2020 Allergies, Adverse Reactions, Alerts Substance Reaction Codes Entered Date Inactivated Date Status * NO KNOWN FOOD ALLERGIES Unknown 07/13/2023 No Inactive Date Active LISINOPRIL RxNorm: 48805 02/12/2020 No Inactive Da te Active Metformin HCl Unknown 02/12/2020 No Inactive Cristiano e Active * NO KNOWN ENVIRONMENTAL ALLERGIES Unknown 07/13/2023 No Inactive Date Active Problems Condition Codes Effective Dates Condition St atus Body mass index [BMI] 60.0-69.9, adult SNOMED CT: 609297767 ICD-10: Z68.44 ICD-9: V85.44 08/08/2024 Active 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 PRIOR RX HAS BEEN EXHAUSTED. THANK YOU. pregabalin 150 mg capsule RxNorm: 094374 1 CAPSULE BY MOUTH AT BEDTIME (DX: NEUROPATHY) 08/21/19 25 025 Active FACILITY IS REQUESTING A REFILL OF THIS MEDICATION, THANK YOU! senna 8.6 mg tablet RxNorm: 811741 Take 1 Tablet(s) Oral QD as needed for constipation on day 2 of no bowel movement 08/09/19 25 025 Inactive Miralax 17 gram/dose oral powder RxNorm: 371550 Administer 17 Gram(s) Oral QD as needed for constipation on day 3 of no bowel movement 08/09/19 25 025 Inactive senna 8.6 mg tablet RxNorm: 731809 Take 1 Tablet(s) Oral QD as needed for constipation on day 2 of no bowel movement 08/09/19 25 025 Inactive Miralax 17 gram/dose oral powder RxNorm: 563308 Administer 17 Gram(s) Oral QD as needed for constipation on day 3 of no bowel movement 08/09/19 25 025 Inactive pregabalin 100 mg capsule RxNorm: 717639 Take 1 Capsule(s) Oral QAM every morning [...] (Concentrated) Insulin 500 unit/mL subcutaneous soln RxNorm: 065146 Inject 100 Unit(s) Subcutaneous AC before meals Three times daily before meals. 07/24/19 25 025 Inactive ammonium lactate 12 % topical cream RxNorm: 964989 Apply 1 Application Topical BID 07/20/19 No Stop Date Active ezetimibe 10 mg tablet RxNorm: 083995 Take 1 Tablet(s) Oral QD 07/18/19 No Stop Date Active senna 8.6 mg tablet RxNorm: 908808 Take 1 Tablet(s) Oral QD 07/18/19 25 025 Inactive metoprolol succinate ER 200 mg tablet,extended release 24 hr RxNorm: 038096 Take 1 Tablet(s) Oral QD 06/19/19 25 No Stop Date Active pantoprazole 40 mg tablet,delayed release RxNorm: 763027 Take 1 Tablet(s) Oral QAM every morning 06/19/19 25 No Stop Date Active hydralazine 50 mg tablet RxNorm: 494680 Take 1 Tablet(s) Oral QID 06/19/19 25 No Stop Date Active carbamazepine 200 mg tablet RxNorm: 405281 Take 1 Tablet(s) Oral BID 06/19/19 25 No Stop Date Active amlodipine 10 mg tablet RxNorm: 181354 Take 1 Tablet(s) Oral QD 06/19/19 25 No Stop Date Active Eliquis 5 mg tablet RxNorm: 3595431 Take 1 Tablet(s) Oral BID 06/19/19 25 No Stop Date Active pen needle, diabetic 30 gauge x 3/16 RxNorm: Use 1 6 times per day w/insulin 06/14/19 25 026 Active pen needle, diabetic 30 gauge x 3/16 RxNorm: Use 1 needle 6 times per day w/insulin 06/14/19 25 025 Inactive nystatin 100,000 unit/gram topical powder RxNorm: 616068 Apply 1 Application Topical BID as needed abdominal/breast /groin folds 05/24/19 25 026 Active pregabalin 100 mg capsule RxNorm: 859046 Take 1 Capsule(s) Oral QAM every morning 05/22/19 25 025 Inactive nystatin 100,000 unit/gram topical powder RxNorm: 641162 Apply 1 Application Topical BID as needed abdominal/breast /groin folds 04/11/20 24 024 Inactive chlorthalidone 25 mg tablet RxNorm: 650766 Take 1 Tablet(s) Oral QAM every morning 04/06/20 24 No Stop Date Active pregabalin 150 mg capsule RxNorm: 631167 Take 1 Capsule(s) Oral QHS every night at bedtime 03/31/20 24 024 Inactive Vascepa 1 gram capsule RxNorm: 8064266 Take 2 Capsule(s) Oral BID 03/30/20 24 025 Active rosuvastatin 40 mg tablet RxNorm: 802714 1 TAB ORALLY EVERY EVENING (DX:CORONARY ARTERY DISEASE) 03/28/20 24 No Stop Date Active venlafaxine ER 75 mg capsule,extended release 24 hr RxNorm: 455181 3 CAPS (225MG) ORALLY DAILY (DX: MOOD DISORDER) 03/28/20 24 No Stop Date Active pregabalin 100 mg capsule RxNorm: 827142 Take 1 Capsule(s) Oral QAM every morning 11/09/04 23 Inactive cholecalciferol (vitamin D3) 1,250 mcg (50,000 unit) capsule RxNorm: 139616 Take 1 Capsule(s) Oral QW once a [...] Insulin 100 unit/mL (3 mL) subcutaneous RxNorm: 6500636 Inject 40 Unit(s) Subcutaneous BID 03/07/20 025 Inactive Please dispense one month supply. Humulin R U-500 (Concentrated) Insulin 500 unit/mL subcutaneous soln RxNorm: 660877 Inject 100 Unit(s) Subcutaneous AC before meals [...] PRN) to be use with new Accu [place] meter 03/04/2022/2 024 Inactive ok to substitute with any covered alternative test strip FreeStyle Chema 2 Sensor kit RxNorm: Use UD as directed 03/02/20 24 Inactive Pen Needle 30 gauge x 09/29 RxNorm: Pen(s) Use 1 needle as directed TID 03/02/20 24 Inactive nystatin 100,000 unit/gram topical powder RxNorm: 212227 Apply 1 Application Topical BID as needed [...] (Concentrated) Insulin 500 unit/mL subcutaneous soln RxNorm: 609290 Inject 100 Unit(s) Subcutaneous TID 02/17/20 24 024 Inactive Humulin R U-500 (Concentrated) Insulin 500 unit/mL subcutaneous soln RxNorm: 010633 Inject 100 Unit(s) Subcutaneous TID 02/10/20 24 024 Inactive Basaglar KwikPen U-100 Insulin 100 unit/mL (3 mL) subcutaneous RxNorm: 0598638 Inject 30 Unit(s) Subcutaneous BID 02/10/20 24 024 Inactive Please dispense one month supply. pregabalin 100 mg capsule RxNorm: 024535 Take 1 Capsule(s) Oral QAM every morning 02/07/20 24 024 Inactive isosorbide mononitrate ER 60 mg tablet,extended release 24 hr RxNorm: 301990 Take 1 Tablet(s) Oral QD 02/01/20 24 025 Active aripiprazole 15 mg tablet RxNorm: 742792 Take 1/2 Tablet(s) Oral QD 02/01/20 24 025 Active torsemide 20 mg tablet RxNorm: 339574 1 TAB ORALLY DAILY (DX: EDEMA) 01/27/20 No Stop Date Active potassium chloride ER 20 mEq tablet,extended release(part/cryst) RxNorm: 7738701 2 TABS (40MEQ) ORALLY TWICE DAILY (DX: HYPOKALEMIA) 01/27/20 24 025 Inactive cephalexin 500 mg capsule RxNorm: 456223 Take 1 Capsule(s) Oral QID 12/17/19 24 024 Inactive cephalexin 500 mg capsule RxNorm: 495298 Take 1 Capsule(s) Oral QID 12/17/19 24 024 Inactive acetaminophen 500 mg tablet RxNorm: 283488 (MAX APAP:4GM/24HR) Take 1 Tablet(s) Oral TID as needed for pain 12/10/19 24 024 Inactive torsemide 20 mg tablet RxNorm: 294124 Take 1 Tablet(s) Oral QD 10/26/19 24 024 Inactive potassium chloride ER 20 mEq tablet,extended release RxNorm: 937579 Take 2 Tablet(s) Oral BID 10/26/19 24 024 Inactive torsemide 20 mg tablet RxNorm: 542561 Take 1 Tablet(s) Oral QD 10/26/19 24 Inactive potassium chloride ER 20 mEq tablet,extended release RxNorm: 721431 Take 2 Tablet(s) Oral BID 10/26/19 24 Inactive Artificial Tears (PF) 0.1 %-0.3 % drops in a dropperette RxNorm: 537754 Apply 1-2 Drop(s) Both eyes BID as needed 09/28/19 24 Inactive erythromycin 5 mg/gram (0.5 %) eye ointment RxNorm: 864405 Apply 1 Application Both eyes QHS every night at bedtime Instill ~1 cm ribbon into affected eye 09/28/19 24 024 Inactive Artificial Tears (PF) 0.1 %-0.3 % drops in a dropperette RxNorm: 487567 Apply 1-2 Drop(s) Both eyes BID as needed 09/28/19 24 024 Inactive erythromycin 5 mg/gram (0.5 %) eye ointment RxNorm: 702658 Apply 1 Application Both eyes QHS every night at bedtime Instill ~1 cm ribbon into affected eye 09/28/19 24 024 Inactive acetaminophen 500 mg tablet RxNorm: 577605 (MAX APAP:4GM/24HR) Take 1 Tablet(s) Oral TID as needed for pain 09/24/19 24 024 Inactive carvedilol 25 mg tablet RxNorm: 978097 Take 1 Tablet(s) Oral QD 09/08/19 24 No Stop Date Active pregabalin 100 mg capsule RxNorm: 524014 Take 1 Capsule(s) Oral QAM every morning 09/07/19 24 024 Inactive bisacodyl 10 mg rectal suppository RxNorm: 874932 Insert 1 Suppository Rectal QD as needed 07/13/19 24 No Stop Date Active ketoconazole 2 % shampoo RxNorm: 366672 Apply 1 Application Topical UD as directed 07/13/19 24 No Stop Date Active Ozempic 1 mg/dose (4 mg/3 mL) subcutaneous pen injector RxNorm: 2790845 Inject 1 Milligram(s) Subcutaneous QW once a week 07/13/19 24 No Stop Date Active Guaifenesin AC 10 mg-100 mg/5 mL oral liquid RxNorm: 323347 Take 10 Milliliter(s) Oral Q4H every four hours as needed 07/13/19 24 No Stop Date Active hydrocortisone 2.5 % topical cream RxNorm: 660219 Apply 1 Application Topical BID as needed 07/13/19 24 No Stop Date Active rosuvastatin 20 mg sprinkle capsule RxNorm: 5981692 Take 1 Capsule(s) Oral QD 07/13/19 24 025 Inactive rosuvastatin 40 mg tablet RxNorm: 153156 Take 1 Tablet(s) Oral QPM every evening 07/13/19 24 024 Inactive ezetimibe 10 mg tablet RxNorm: 565473 Take 1 Tablet(s) Oral QD 07/13/19 24 025 Inactive polyethylene glycol 3350 17 gram/dose oral powder RxNorm: 365666 Take 17 Gram(s) Oral BID as needed mix in 4-8ox water 07/13/19 24 025 Inactive aripiprazole 15 mg tablet RxNorm: 372843 Take 1/2 Tablet(s) Oral QD 07/13/19 24 024 Inactive isosorbide mononitrate ER 60 mg tablet,extended release 24 hr RxNorm: 266346 Take 1 Tablet(s) Oral QD 07/13/19 24 024 Inactive ammonium lactate 12 % topical cream RxNorm: 861988 Apply 1 Application Topical BID 07/13/19 24 025 Inactive Vascepa 1 gram capsule RxNorm: 0074725 Take 2 Capsule(s) Oral BID 07/13/19 24 024 Inactive venlafaxine ER 75 mg capsule,extended release 24 hr RxNorm: 302518 Take 3 Capsule(s) Oral QD 07/13/19 24 024 Inactive Basaglar KwikPen U-100 Insulin 100 unit/mL (3 mL) subcutaneous RxNorm: 6379702 Inject 30U SubQ twice daily 07/07/19 24 024 Inactive Please dispense one month supply. Basaglar KwikPen U-100 Insulin 100 unit/mL (3 mL) subcutaneous RxNorm: 4246181 Inject 30U SubQ twice daily 07/07/19 24 024 Inactive Please dispense one month supply. pregabalin 150 mg capsule RxNorm: 733136 Take 1 Capsule(s) Oral QHS every night at bedtime 07/05/19 24 024 Inactive pregabalin 150 mg capsule RxNorm: 568598 Take 1 Capsule(s) Oral QHS every night at bedtime 07/05/19 24 024 Inactive polyethylene glycol 3350 17 gram/dose oral powder RxNorm: 642662 Take 1 Packet Oral QD as needed (1 packet = 17g) mix with 4-8oz of liquid 06/15/19 24 024 Inactive bisacodyl 10 mg rectal suppository RxNorm: 746122 Insert one suppository per rectum once daily as needed for constipation 06/15/19 24 024 Inactive bisacodyl 10 mg rectal suppository RxNorm: 412797 Insert one suppository per rectum once daily as needed for constipation 06/15/19 24 024 Inactive pregabalin 100 mg capsule RxNorm: 601155 Take 1 Capsule(s) Oral QAM every morning 04/27/20 024 Inactive Levemir FlexPen 100 unit/mL (3 mL) solution subcutaneous insulin pen RxNorm: 619292 Inject 30 Unit(s) Subcutaneous BID 04/27/20 024 Inactive rosuvastatin 40 mg tablet RxNorm: 823401 Take 1 Tablet(s) Oral QPM every evening 04/16/20 024 Inactive D/C rosuvastatin 20mg venlafaxine ER 75 mg capsule,extended release 24 hr RxNorm: 422948 Take 3 Capsule(s) Oral QD 04/14/20 023 Inactive pregabalin 100 mg capsule RxNorm: 661859 Take 1 Capsule(s) Oral QAM every morning [...] strip clotrimazole 1 % topical cream RxNorm: 369072 Take apply topically to abdominal folds twice daily for 14 days 03/12/20 024 Inactive Ozempic 1 mg/dose (4 mg/3 mL) subcutaneous pen injector RxNorm: 8029632 Inject 1 Milligram(s) Subcutaneous QW once a week 03/11/20 023 Inactive rosuvastatin 20 mg tablet RxNorm: 981598 Take 1 Tablet(s) Oral QD 02/26/20 23 023 Inactive d/c pravastatin 80mg Ozempic 1 mg/dose (4 mg/3 mL) subcutaneous pen injector RxNorm: 5721235 Inject 1 Milligram(s) Subcutaneous QW once a week 02/20/20 23 023 Inactive pregabalin 150 mg capsule RxNorm: 870623 Take 1 Capsule(s) Oral HS at bed time 02/19/20 023 Inactive pregabalin 100 mg capsule RxNorm: 171708 Take 1 Capsule(s) Oral QAM every morning 02/18/20 23 023 Inactive venlafaxine ER 75 mg capsule,extended release 24 hr RxNorm: 026589 Take 3 Capsule(s) Oral QD 02/04/20 23 023 Inactive FreeStyle Chema 2 Sensor kit RxNorm: use as directed 02/04/20 23 023 Inactive FreeStyle Chema 2 Sensor kit RxNorm: use as directed 02/04/20 23 024 Inactive fluconazole 150 mg tablet RxNorm: 544159 Take 1 Tablet(s) Oral on day 3 and on day 6 02/03/20 024 Inactive venlafaxine ER 150 mg capsule,extended release 24 hr RxNorm: 440499 Take 1 Capsule(s) Oral QD 02/03/20 23 023 Inactive chlorthalidone 25 mg tablet RxNorm: 467866 Take 1 Tablet(s) Oral QAM every morning 02/03/20 23 024 Inactive acetaminophen 500 mg tablet RxNorm: 831361 1 TABLET ORALLY 3 TIMES DAILY (MAX APAP:4GM/24HR) 12/15/19 23 023 Inactive clotrimazole 1 % topical cream RxNorm: 472508 apply 1g topically to top of feet and in between toes BID 12/09/19 23 025 Inactive potassium chloride ER 20 mEq tablet,extended release RxNorm: 027627 Take 1 Tablet(s) Oral BID 12/09/19 23 024 Inactive d/c 20mEq once daily (sent from hospital) nystatin 100,000 unit/gram topical powder RxNorm: 714703 APPLY TO AFFECTED AREAS TOPICALLY 2 TIMES DAILY 11/21/19 23 023 Inactive Nystop 100,000 unit/gram topical powder RxNorm: 545036 Apply to abd folds, under breasts and L side of groin Topical BID x 14 days, then BID PRN 11/20/19 23 023 Inactive dx: yeast dermatitis [place] Ultra Strength 4 %-30 %-10 % topical cream RxNorm: 922897 Apply 1 Gram(s) Topical QID PRN to feet and legs for neuropathic pain 11/11/19 024 Inactive clotrimazole 1 % topical cream RxNorm: 628583 Apply 1/2 Gram(s) Topical BID Apply to affected areas of groin, periarea, and abdominal topically 2 times daily 11/10/19 023 Inactive hydrocortisone 2.5 % topical cream RxNorm: 931344 Apply 1/2 Gram(s) Topical BID as needed 11/10/19 024 Inactive Levemir FlexPen 100 unit/mL (3 mL) solution subcutaneous insulin pen RxNorm: 065407 Inject 30 Unit(s) Subcutaneous BID 10/07/19 023 Inactive Humulin R U-500 (Concentrated) Insulin 500 unit/mL subcutaneous soln RxNorm: 267109 Inject 100 Unit(s) Subcutaneous TID 10/07/19 024 Inactive Ozempic 0.25 mg or 0.5 mg (2 mg/3 mL) subcutaneous pen injector RxNorm: 1372029 Inject 1/2 Milligram(s) Subcutaneous QW once a week 10/07/19 024 Inactive aripiprazole 15 mg tablet RxNorm: 064931 1/2 TAB (7.5MG) ORALLY DAILY (DX:MAJOR DEPRESSIVE DISORDER) 09/23/19 023 Inactive Accu-Chek Guide test strips RxNorm: Use 1 Test Strip QID 09/15/19 23 023 Inactive ok to substitute with any covered alternative test strip Lancets,Thin 28 gauge RxNorm: Use 1 as directed QID 09/15/19 23 023 Inactive torsemide 20 mg tablet RxNorm: 655152 Take 1 Tablet(s) Oral BID 09/09/19 024 Inactive d/c once daily dosing carvedilol 25 mg tablet RxNorm: 791297 Take 1 Tablet(s) Oral QD 08/25/19 23 024 Inactive pregabalin 150 mg capsule RxNorm: 970941 1 Capsule(s) Oral HS at bed time 08/18/19 23 023 Inactive pregabalin 100 mg capsule RxNorm: 517821 1 Capsule(s) Oral QAM every morning 08/18/19 23 023 Inactive carvedilol 25 mg tablet RxNorm: 438626 1 Tablet(s) Oral QD 07/28/19 23 023 Inactive lisinopril 20 mg tablet RxNorm: 587897 Give 1 Tablet(s) Oral QD 07/28/19 23 023 Inactive Lyrica 150 mg capsule RxNorm: 552222 Take 1 Capsule(s) Oral QHS every night at bedtime 07/19/19 23 023 Inactive d/c 100mg dose Diflucan 150 mg tablet RxNorm: 605158 Take 1 Tablet(s) Oral QD repeat on day 3 and 6 07/19/19 23 023 Inactive pregabalin 100 mg capsule RxNorm: 822397 Take 1 Capsule(s) Oral QAM every morning 07/19/19 23 023 Inactive gatifloxacin 0.5 % eye drops RxNorm: 860804 Instill 1 Drop(s) as directed TID Instill 1 drop in to affected eye(s) starting 1 day prior to surgery and continue until gone (do not exceed 4 weeks). 07/13/19 23 023 Inactive carvedilol 25 mg tablet RxNorm: 522531 2 Tablet(s) Oral BID 07/13/19 23 023 Inactive Humulin R Regular U-100 Insulin 100 unit/mL injection solution RxNorm: 927202 85 Unit(s) Injection TID 07/13/19 23 023 Inactive ketorolac 0.5 % eye drops RxNorm: 351041 Instill 1 Drop(s) as directed QID Instill 1 drop into affected eye(s) 4 times daily starting 1 day prior to surgery and continue until gone (do not exceed 4 weeks). 07/13/19 23 023 Inactive Diflucan 150 mg tablet RxNorm: 484660 Take 1 Tablet(s) Oral QD repeat on day 3 and 6 06/30/19 23 023 Inactive Accu-Chek Guide test strips RxNorm: Use 1 Test Strip QID Use 1 test strip to monitor blood glucose 4 times daily and as needed. Dx:E11.42. 06/23/19 23 023 Inactive ok to substitute with any covered alternative test strip dextromethorphan-gu aifenesin 10 mg-100 mg/5 mL oral liquid RxNorm: 422917 Take 10 Milliliter(s) Oral every 4 hours as needed for cough 06/19/19 023 Inactive dextromethorphan-gu aifenesin 10 mg-100 mg/5 mL oral liquid RxNorm: 063233 Take 10 Milliliter(s) Oral every 4 hours as needed for cough 06/19/19 023 Inactive Lyrica 150 mg capsule RxNorm: 142427 Take 1 Capsule(s) Oral QHS every night at bedtime 06/18/19 023 Inactive d/c 100mg dose aripiprazole 15 mg tablet RxNorm: 301252 1/2 TAB (7.5MG) ORALLY DAILY (DX:MAJOR DEPRESSIVE DISORDER) 06/05/19 23 023 Inactive pregabalin 100 mg capsule RxNorm: 600463 1 Capsule(s) Oral QAM every morning 06/02/19 23 023 Inactive Banophen 50 mg capsule RxNorm: 8283674 Take 1 Capsule(s) Oral Q6H every 6 hours as needed 05/19/19 23 No Stop Date Active Novolog Flexpen U-100 Insulin aspart 100 unit/mL (3 mL) subcutaneous RxNorm: 9937543 Inject 10 Unit(s) Subcutaneous QHS every night at bedtime with nighttime snack 04/08/20 22 022 Inactive Novolog Flexpen U-100 Insulin aspart 100 unit/mL (3 mL) subcutaneous RxNorm: 2033394 Inject 42 Unit(s) Subcutaneous TID in addition to sliding scale 04/08/20 22 022 Inactive d/c 36u albuterol sulfate HFA 90 mcg/actuation aerosol inhaler RxNorm: 0424981 Take 2 Puff(s) Inhalation Q4H every four hours as needed as needed for SOB, cough, or wheezing 04/07/20 030 Active Banophen 50 mg capsule RxNorm: 6173594 Take 1 Capsule(s) Oral Q6H every 6 hours as needed 04/06/20 023 Inactive diphenhydramine 50 mg tablet RxNorm: 0659775 Take 1 Tablet(s) Oral Q6H every 6 hours as needed 04/06/20 022 Inactive diphenhydramine 50 mg tablet RxNorm: 5591404 1 Tablet(s) Oral Q6H every 6 hours as needed 04/06/20 022 Inactive Abilify 15 mg tablet RxNorm: 207892 1/2 Tablet(s) Oral QD 03/10/20 023 Inactive Shingrix (PF) 50 mcg/0.5 mL intramuscular suspension, kit RxNorm: 0965816 Administer 1/2 Milliliter(s) Intramuscular QD one time shingrix step 2 ( step 1 given 11/04/21) WITH needle - Nursing please administer upon arrival and once administered post a bridge message with date of administration, custodial worker, expiration date, and lot# so we can update [facility] 02/18/20 22 022 Inactive dispense with needle Shingrix (PF) 50 mcg/0.5 mL intramuscular suspension, kit RxNorm: 9877002 Administer 1/2 Milliliter(s) Intramuscular QD one time shingrix step 2 ( step 1 given 11/04/21) WITH needle - Nursing please administer upon arrival and once administered post a bridge message with date of administration, custodial worker, expiration date, and lot# so we can update [facility] 02/18/20 22 022 Inactive dispense with needle Lyrica 100 mg capsule RxNorm: 852443 Take 1 Capsule(s) Oral QAM every morning 01/08/20 22 022 Inactive d/c 50mg dose acetaminophen 500 mg tablet RxNorm: 172710 Take 1 Tablet(s) Oral TID 01/08/20 22 022 Inactive d/c PRN order Lyrica 150 mg capsule RxNorm: 268877 Take 1 Capsule(s) Oral QHS every night at bedtime 01/08/20 22 023 Inactive d/c 100mg dose polyethylene glycol 3350 17 gram/dose oral powder RxNorm: 987159 Take 17=1 capful Gram(s) Oral QD mix with 4-8oz of liquid 01/08/20 22 025 Inactive take this in addition to BID prn order Abilify 5 mg tablet RxNorm: 735935 Take 1 Tablet(s) Oral QD take 1 tab po QD #30 refill 5 dx: MDD 12/12/19 22 022 Inactive Abilify 5 mg tablet RxNorm: 723303 Take 1 Tablet(s) Oral QD take 1 tab po QD #30 refill 5 dx: MDD 12/12/19 22 022 Inactive Novolog Flexpen U-100 Insulin aspart 100 unit/mL (3 mL) subcutaneous RxNorm: 8125241 Inject 42 Unit(s) Subcutaneous TID in addition to sliding scale 12/10/19 22 022 Inactive d/c 36u chlorthalidone 25 mg tablet RxNorm: 770373 Take 1 Tablet(s) Oral QAM every morning 12/10/19 22 023 Inactive pregabalin 50 mg capsule RxNorm: 329396 Take 1 Capsule(s) Oral QAM every morning 11/12/19 22 022 Inactive tetanus-diphtheria toxoids-Td 2 Lf unit-2 Lf unit/0.5 mL IM suspension RxNorm: 139 Take 0.5 Miscellaneous Intramuscular 11/12/19 22 022 Inactive need tdap - nursing to administer upon arrival pregabalin 50 mg capsule RxNorm: 787411 Take 1 Capsule(s) Oral QAM every morning 10/16/19 22 022 Inactive pregabalin 50 mg capsule RxNorm: 341705 Take 1 Capsule(s) Oral QAM every morning 10/16/19 22 022 Inactive pregabalin 50 mg capsule RxNorm: 032361 1 Capsule(s) Oral QAM every morning 10/15/19 22 05/31/2 022 Inactive Shingrix (PF) 50 mcg/0.5 mL intramuscular suspension, kit RxNorm: 2207873 Administer 1/2 Milliliter(s) Intramuscular one time Nursing please administer upon arrival and once administered post a bridge message with date of administration, custodial worker, expiration date, and lot# so we can update [facility]. 10/09/19 22 Inactive shingrix step 1 Shingrix (PF) 50 mcg/0.5 mL intramuscular suspension, kit RxNorm: 6235848 Administer 1/2 Milliliter(s) Intramuscular one time Nursing please administer upon arrival and once administered post a bridge message with date of administration, custodial worker, expiration date, and lot# so we [...] aspart 100 unit/mL (3 mL) subcutaneous RxNorm: 6174954 Inject 10 Unit(s) Subcutaneous QHS every night at bedtime with nighttime snack 10/08/19 22 Inactive Shingrix (PF) 50 mcg/0.5 mL intramuscular suspension, kit RxNorm: 6480024 ADMINISTER 2-DOSE SERIES PER CDC GUIDELINES 10/08/19 22 Active Shingrix (PF) 50 mcg/0.5 mL intramuscular suspension, kit RxNorm: 6177484 ADMINISTER 2-DOSE SERIES PER CDC GUIDELINES 10/08/19 22 Inactive Novolog Flexpen U-100 Insulin aspart 100 unit/mL (3 mL) subcutaneous RxNorm: 3760566 Inject 36 Unit(s) Subcutaneous TID in addition to sliding scale 10/08/19 22 07/25/2 022 Inactive cholecalciferol (vitamin D3) 1,250 mcg (50,000 unit) capsule RxNorm: 360924 Take 1 Capsule(s) Oral QW once a week 10/08/19 Inactive Novofine Autocover 30 gauge x 1/3 needle RxNorm: Use 1 Miscellaneous UD as directed Use 1 needle as directed to administer insulin 5 times a day Dx:E11.42. 10/03/19 Inactive ok to substitute with any covered alternative pen needle benzoyl peroxide 10 % topical cleanser RxNorm: 256254 Apply 1 Application Topical QD apply to face, wash rinse and dry once daily (may change to QOD if drying) 08/19/19 022 Inactive (%covered by insurance) #60ml refill 11 dx: acne benzoyl peroxide 10 % topical cleanser RxNorm: 434946 Apply 1 Application Topical QD apply to face, wash rinse and dry once daily (may change to QOD if drying) 08/19/19 022 Inactive (%covered by insurance) #60ml refill 11 dx: acne benzoyl peroxide 10 % topical cleanser RxNorm: 286014 Apply 1 Application Topical QD apply to face, wash rinse and dry once daily (may change to QOD if drying) 08/19/19 022 Inactive (%covered by insurance) #60ml refill 11 dx: acne Lyrica 50 mg capsule RxNorm: 158143 Take 1 Capsule(s) Oral QAM every morning Take 1 capsule by mouth once daily 08/19/19 022 Inactive benzoyl peroxide 10 % topical cleanser RxNorm: [id number] Apply 1 Application Topical QD apply to face, wash rinse and dry once daily (may change to QOD if drying) 08/19/19 022 Inactive (%covered by insurance) #60ml refill 11 dx: acne Lyrica 100 mg capsule RxNorm: 221235 Take 1 Capsule(s) Oral QHS every night at bedtime Take 1 capsule by mouth once daily at bedtime 08/19/19 022 Inactive Lyrica 100 mg capsule RxNorm: 299165 Take 1 Capsule(s) Oral QHS every night at bedtime Take 1 capsule by mouth once daily at bedtime 08/16/19 22 022 Inactive Lyrica 50 mg capsule RxNorm: 627465 Take 1 Capsule(s) Oral QAM every morning Take 1 capsule by mouth once daily 08/16/19 22 022 Inactive Levemir FlexTouch U-100 Insulin 100 unit/mL (3 mL) subcutaneous pen RxNorm: 930628 Inject 86 Unit(s) Subcutaneous BID 08/05/19 22 022 Inactive d/c 83units BID Lyrica 100 mg capsule RxNorm: 670121 Take 1 Capsule(s) Oral QHS every night at bedtime Take 1 capsule by mouth once daily at bedtime 07/14/19 22 022 Inactive Lyrica 50 mg capsule RxNorm: 842196 Take 1 Capsule(s) Oral QAM every morning Take 1 capsule by mouth once daily 07/14/19 22 022 Inactive Levemir FlexTouch U-100 Insulin 100 unit/mL (3 mL) subcutaneous pen RxNorm: 006802 Inject 83 Unit(s) Subcutaneous BID 07/08/19 22 [...] test strip hydralazine 50 mg tablet RxNorm: 329090 Take 1 Tablet(s) Oral QID 05/05/20 21 Inactive venlafaxine ER 225 mg tablet,extended release 24 hr RxNorm: 406532 Take 1 Tablet(s) Oral QD 05/05/20 Inactive venlafaxine ER 225 mg tablet,extended release 24 hr RxNorm: 722175 Take 1 Tablet(s) Oral QD 05/05/20 022 Inactive isosorbide mononitrate ER 30 mg tablet,extended release 24 hr RxNorm: 954149 Take 1 Tablet(s) Oral QD 05/05/20 024 Inactive hydralazine 50 mg tablet RxNorm: 062176 Take 1 Tablet(s) Oral QID 05/05/20 21 Inactive aspirin 81 mg tablet,delayed release RxNorm: 480151 Take 1 Tablet(s) Oral QD 03/31/20 21 022 Inactive Vitamin D2 1,250 mcg (50,000 unit) capsule RxNorm: 7844763 Take 1 Capsule(s) Oral QW once a week x 12 weeks 03/31/20 022 Inactive Vitamin D2 1,250 mcg (50,000 unit) capsule RxNorm: 9721504 Take 1 Capsule(s) Oral QW once a week 03/31/20 21 021 Inactive Zetia 10 mg tablet RxNorm: 469624 Take 1 Tablet(s) Oral QD 03/31/20 024 Inactive Zetia 10 mg tablet RxNorm: 217361 Take 1 Tablet(s) Oral QD 03/31/20 021 Inactive hydralazine 25 mg tablet RxNorm: 007013 Take 1 Tablet(s) Oral QID 03/31/20 021 Inactive hydralazine 25 mg tablet RxNorm: 320355 Take 1 Tablet(s) Oral QID 03/31/20 021 Inactive hydralazine 10 mg tablet RxNorm: 198829 Take 1 Tablet(s) Oral QID 03/03/20 021 Inactive cephalexin 500 mg tablet RxNorm: 820819 Take 1 Tablet(s) Oral QID 02/27/20 021 Inactive cephalexin 500 mg tablet RxNorm: 052045 Take 1 Tablet(s) Oral QID 02/27/20 021 Inactive lisinopril 40 mg tablet RxNorm: 175668 Take 1 Tablet(s) Oral QD 02/11/20 023 Inactive Eliquis 5 mg tablet RxNorm: 3550593 Take 1 Tablet(s) Oral BID 01/05/20 21 025 Inactive Eliquis 5 mg tablet RxNorm: 8024336 Take 2 Tablet(s) Oral QD 01/01/20 21 021 Inactive Lyrica 50 mg capsule RxNorm: 662777 Take 1 Capsule(s) Oral QAM every morning 12/24/19 021 Inactive Lyrica 100 mg capsule RxNorm: 351820 Take 1 Capsule(s) Oral QHS every night at bedtime 12/24/19 021 Inactive clotrimazole 1 % topical cream RxNorm: 101311 Apply to right foot and toes Topical BID 12/04/19 21 023 Inactive metoprolol succinate ER 200 mg tablet,extended release 24 hr RxNorm: 225685 Take 1 Tablet(s) Oral QD 12/04/19 21 023 Inactive ciprofloxacin 500 mg tablet RxNorm: 716246 Take 1 Tablet(s) Oral QD 11/30/19 21 021 Inactive DX ofloxacin otic drops Accu-Chek Guide test strips RxNorm: USE 1 TO CHECK GLUCOSE 4 TIMES DAILY AND NEEDED 11/15/19 21 023 Inactive Blood Glucose Test strips RxNorm: Use 1 Test Strip QID at PRN 11/05/19 21 023 Inactive E11.42 lisinopril 30 mg tablet RxNorm: 321054 Take 1 Tablet(s) Oral QD 10/30/19 021 Inactive lisinopril 20 mg tablet RxNorm: 374931 Take 1 Tablet(s) Oral QD 10/23/19 21 021 Inactive lisinopril 20 mg tablet RxNorm: 708100 Take 1 Tablet(s) Oral QD 10/23/19 21 021 Inactive lisinopril 10 mg tablet RxNorm: 193340 Take 1 Tablet(s) Oral QD 10/02/19 21 021 Inactive icosapent ethyl 1 gram capsule RxNorm: 0677340 Take 2 Capsule(s) (2 gm) Oral BID with meals 09/12/19 21 024 Inactive Okay to dispense one 2gm tab if you have that available. icosapent ethyl 1 gram capsule RxNorm: 1378176 Take 2 Capsule(s) Oral BID 09/12/19 21 021 Inactive Okay to dispense one 2gm tab if you have that available. amlodipine 10 mg tablet RxNorm: 993785 Take 1 Tablet(s) Oral QD 09/04/19 21 021 Inactive aspirin 81 mg tablet,delayed release RxNorm: 591164 Take 1 Tablet(s) Oral QD 09/04/19 21 021 Inactive Levemir FlexTouch U-100 Insulin 100 unit/mL (3 mL) subcutaneous pen RxNorm: 437255 Inject 150 Unit(s) Subcutaneous BID 09/04/19 21 022 Inactive venlafaxine ER 150 mg tablet,extended release 24 hr RxNorm: 672609 Take 1 Tablet(s) Oral QD 09/04/19 21 021 Inactive clotrimazole-betame thasone 1 %-0.05 % topical cream RxNorm: 752792 Apply to rash on red area on left abdomen/chest Topical BID 08/10/19 21 021 Inactive amlodipine 5 mg tablet RxNorm: 553987 Take 1 Tablet(s) Oral QD 07/31/19 21 Inactive cephalexin 500 mg tablet RxNorm: 568934 Take 1 Tablet(s) Oral BID BID - Twice Daily 07/31/19 21 021 Inactive Start 08/01/20 pantoprazole 40 mg tablet,delayed release RxNorm: 354412 Take 1 Tablet(s) Oral QAM every morning 07/08/19 025 Inactive clopidogrel 75 mg tablet RxNorm: 331467 Take 1 Tablet(s) Oral QD 07/08/19 021 Inactive Blood Glucose Test strips RxNorm: Use 1 Test Strip QID at PRN 07/08/19 Inactive E11.42 senna 8.6 mg tablet RxNorm: 836719 Take 1 Tablet(s) Oral QD 07/08/19 025 Inactive Novolog Flexpen U-100 Insulin aspart 100 unit/mL (3 mL) subcutaneous RxNorm: 2507760 Administer per sliding scale Milliliter(s) Subcutaneous TID 151-200: 10 u; 201-250: 20 u; 251-300: 30 u; 301-350: 40 u; 351-400: 50 u. 07/08/19 022 Inactive lisinopril 5 mg tablet RxNorm: 547162 Take 1 Tablet(s) Oral QD 07/08/19 021 Inactive Novolog Flexpen U-100 Insulin aspart 100 unit/mL (3 mL) subcutaneous RxNorm: 3675479 Inject 85 Unit(s) Subcutaneous TID 07/08/19 022 Inactive pravastatin 80 mg tablet RxNorm: 329773 Take 1 Tablet(s) Oral QHS every night at bedtime 07/08/19 023 Inactive clotrimazole 1 % topical cream RxNorm: 077195 Apply to bilateral groin areas Topical BID 07/08/19 21 022 Inactive metoprolol succinate ER 200 mg tablet,extended release 24 hr RxNorm: 971324 Take 1 Tablet(s) Oral QD 07/08/19 021 Inactive Vitamin D3 25 mcg (1,000 unit) tablet RxNorm: 923264 Take 1 Tablet(s) Oral QD 07/08/19 021 Inactive isosorbide dinitrate 30 mg tablet RxNorm: 565599 Take 1 Tablet(s) Oral QD 07/08/19 021 Inactive carbamazepine 200 mg tablet RxNorm: 006281 Take 1 Tablet(s) Oral BID 07/08/19 21 025 Inactive Levemir FlexTouch U-100 Insulin 100 unit/mL (3 mL) subcutaneous pen RxNorm: 410335 Inject 140 Unit(s) Subcutaneous BID 07/08/19 021 Inactive torsemide 20 mg tablet RxNorm: 861722 Take 1 Tablet(s) Oral QD 07/08/19 023 Inactive venlafaxine 75 mg tablet RxNorm: 947893 Take 1 Tablet(s) Oral QD 07/08/19 021 Inactive acetaminophen 500 mg tablet RxNorm: 250649 Take 1 Tablet(s) Oral TID as needed for headache 06/18/19 21 021 Inactive acetaminophen 500 mg tablet RxNorm: 843822 Take 1 Tablet(s) Oral TID as needed for headache 06/18/19 21 021 Inactive Lyrica 100 mg capsule RxNorm: 841502 Take 1 Capsule(s) Oral QHS every night at bedtime 06/11/19 021 Inactive Lyrica 50 mg capsule RxNorm: 493819 Take 1 Capsule(s) Oral QAM every morning 06/10/19 21 021 Inactive hydrocortisone 2.5 % topical cream RxNorm: 304096 Apply to bilateral groin creases Topical BID 05/15/20 20 021 Inactive clotrimazole 1 % topical cream RxNorm: 087121 Apply to bilateral groin areas Topical BID 05/15/20 20 021 Inactive Lyrica 50 mg capsule RxNorm: 718086 Take 1 Capsule(s) Oral QAM every morning 05/14/20 20 12/29/2 020 Inactive Lyrica 100 mg capsule RxNorm: 890977 Take 1 Capsule(s) Oral QHS every night [...] Inactive Nystop 100,000 unit/gram topical powder RxNorm: 724565 Apply to abd folds, under breasts and L side of groin Topical BID x 14 days, then BID PRN 04/08/20 20 Inactive dx: yeast dermatitis Lyrica 100 mg capsule RxNorm: 127138 Take 1 Capsule(s) Oral QHS every night at bedtime 03/13/20 20 Inactive Lyrica 50 mg capsule RxNorm: 422876 Take 1 Capsule(s) Oral QAM every morning 03/13/20 20 Inactive ketoconazole 2 % shampoo RxNorm: 016579 Apply Topical two times a week with showers 03/11/20 20 024 Inactive cholecalciferol (vitamin D3) 50 mcg (2,000 unit) tablet RxNorm: 740296 Take 1 Tablet(s) Oral QD 03/11/20 20 021 Inactive Zetia 10 mg tablet RxNorm: 866765 Take 1 Tablet(s) Oral QD 03/07/20 20 021 Inactive Zetia 10 mg tablet RxNorm: 900698 Take 1 Tablet(s) Oral QD 10/22/ 020 Inactive Lyrica 50 mg capsule RxNorm: 709135 Take 1 Capsule(s) Oral QAM every morning 02/15/20 020 Inactive Lyrica 100 mg capsule RxNorm: 893914 Take 1 Capsule(s) Oral QHS every night at bedtime 02/15/20 020 Inactive Lyrica 100 mg capsule RxNorm: 475285 Take 1 Capsule(s) Oral QHS every night at bedtime 02/15/20 020 Inactive Lyrica 50 mg capsule RxNorm: 179748 Take 1 Capsule(s) Oral QAM every morning 02/15/20 020 Inactive loperamide 2 mg capsule RxNorm: 056488 Take 1 Capsule(s) Oral QID as needed 09/06/19 025 Inactive venlafaxine ER 75 mg capsule,extended release 24 hr RxNorm: 177135 Take 3 Capsule(s) Oral QD 06/12/19 023 Inactive polyethylene glycol 3350 17 gram/dose oral powder RxNorm: 287671 Take 17=1 capful Gram(s) Oral BID as needed mix with 4-8oz of liquid 06/12/19 024 Inactive icosapent ethyl 1 gram capsule RxNorm: 8681865 Take 2 Capsule(s) (2 gm) Oral BID with meals 10/07/19 023 Inactive Okay to dispense one 2gm tab if you have that available. Levemir FlexTouch U-100 Insulin 100 unit/mL (3 mL) subcutaneous pen RxNorm: 210677 Inject 80 Unit(s) Subcutaneous BID 07/14/19 23 023 Inactive metoprolol succinate ER 200 mg tablet,extended release 24 hr RxNorm: 299585 Take 1 Tablet(s) Oral QD 08/12/19 025 Inactive hydralazine 50 mg tablet RxNorm: 911914 Take 1 Tablet(s) Oral QID 08/12/19 025 Inactive Soft Touch Lancets RxNorm: miscellaneous 03/04/20 24 025 Inactive Novolog Flexpen U-100 Insulin aspart 100 unit/mL (3 mL) subcutaneous RxNorm: 4407698 Insert 30 Unit(s) Subcutaneous TID with meals [...] Planned Activity Notes Codes Status Date Referral: [id number] [place] Referral Appointment Scheduled 10/20/2024 Referral: [facility] [id number] [place] Referral No Records Received 07/10/2024 Referral: [facility] WPtel: [address], [address] [id number] [place] Referral Records Received 09/21/2022 Referral: [facility] WPtel: [address] [id number] [place] Referral Completed 05/28/2021 Referral: General Cardiology [...] Sister Jyotsna involved in his care cell# [phone] Guardian: Giulia (tapan met in person 09/01/21), [...] in 1 year to monitor growth (due 6.2025)04.04.2024: A1c ordered by endocrine (9.8%)05.15.2024: BMP Na 139. K 3.7. BUN 16.9. Creatinine 1.02. eGFR 82. BG 299H. Lipid panel TC 116. Trigs 575H. HDL 28L. LDL cannot calculate because trigs >400. nonHDL 88.Colon & Rectal Surgery visit scheduled for 06.19.2023 with Matilde Pérez PA-C. Endocrinology appointment 05.26.2024 with Jessa Webster MD at [facility]. Start Pioglitazone 15 mg QD. Stop Basaglar insulin. Increase Ozempic 2 mg once wkly. Continue Humalin R U-500 100 units with meals TID. FOLLOW UP 2 MONTHS. If BG >400 add 50 units to next scheduled dose of Humalin R U 500 insulin 06/12/2024
--- OUTSIDE RECORDS SUMMARY | 2024-10-19 19:26 | XMS_ITS | CCD ---
Author Organization Unknown Care Team Providers Care Re Recording Mixer Name Role Phone Harrison Durham Primary Care Provider Leona vailable Unavailable Chronic Care Management Unavaila ble Summary Purpose DataExchange Insurance Providers Payer name Policy type / Coverage type Covered republican ID Effective Begin Date Effective End Date [place] [id number] Unknown Unknown [place] Part B [id number] Unknown Unknown Family history Sister Brittany Suggs Diagnosis Age At Onset No Family Disease Entered N/A Runs in the family Diagnosis Age At Onset No Known Diseases N/A Sister Blanka Mcduffie Diagnosis Age At Onset No Family Disease Entered N/A Social History Social History Element Codes Description Effec tive Dates Tobacco history SNOMED CT: 445177849 Never smoker 01/16 Sexually Active? Unknown No [...] 10/07/2021 Living arrangements Unknown Retirement 09/03/[address]: 563095627 No Alcohol Consum ption 09/02/2020 Allergies, Adverse Reactions, Alerts Substance Reaction Codes Entered Date Inactivated Date Status * NO KNOWN FOOD ALLERGIES Unknown 07/13/2023 No Inactive Date Active LISINOPRIL RxNorm: 24728 02/12/2020 No Inactive Da te Active Metformin [...] E78. 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 Other fpc (current) dr ug therapy ICD-10: Z79.899 ICD-9: [...] 09/07/2023 Resolved Coronary artery disease invo lving [place] [...] Fill Instructions rosuvastatin 40 mg tablet RxNorm: 134360 1 TAB ORALLY EVERY EVENING (DX:CORONARY ARTERY DISEASE) 03/28/20 24 No Stop Date Active venlafaxine ER 75 mg capsule,extended release 24 hr RxNorm: 727213 3 CAPS (225MG) ORALLY DAILY (DX: MOOD DISORDER) 03/28/20 24 No Stop Date Active pregabalin 100 mg capsule RxNorm: 119961 Take 1 Capsule(s) Oral QAM every morning 03/20/20 24 024 Inactive cholecalciferol (vitamin D3) 1,250 mcg (50,000 unit) capsule RxNorm: 876661 Take 1 Capsule(s) Oral QW once a week 03/15/20 24 025 Active Pen Needle 30 gauge x 5/16 RxNorm: Pen(s) Use 1 needle as directed TID 03/08/20 24 025 Inactive Lancets,Thin 28 gauge RxNorm: Use 1 as directed TID lancet 03/08/20 24 024 Inactive Lancets,Thin 28 gauge RxNorm: Use [...] Insulin 100 unit/mL (3 mL) subcutaneous RxNorm: 8511133 Inject 40 Unit(s) Subcutaneous BID 03/07/20 025 Inactive Please dispense one month supply. Humulin R U-500 (Concentrated) Insulin 500 unit/mL subcutaneous soln RxNorm: 732019 Inject 100 Unit(s) Subcutaneous AC before meals [...] PRN) to be use with new Accu [place] meter 03/04/20 024 Inactive ok to substitute with any covered alternative test strip FreeStyle Chema 2 Sensor kit RxNorm: Use UD as directed 03/02/20 025 Inactive FreeStyle Chema 2 Sensor kit RxNorm: Use UD as directed 03/02/20 Inactive Pen Needle 30 gauge x 516 RxNorm: Pen(s) Use 1 needle as directed TID 03/02/20 Inactive nystatin 100,000 unit/gram topical powder RxNorm: 045076 Apply 1 Application Topical BID as needed [...] (Concentrated) Insulin 500 unit/mL subcutaneous soln RxNorm: 799366 Inject 100 Unit(s) Subcutaneous TID 02/17/20 24 024 Inactive Humulin R U-500 (Concentrated) Insulin 500 unit/mL subcutaneous soln RxNorm: 246930 Inject 100 Unit(s) Subcutaneous TID 02/10/20 24 024 Inactive Basaglar KwikPen U-100 Insulin 100 unit/mL (3 mL) subcutaneous RxNorm: 0492640 Inject 30 Unit(s) Subcutaneous BID 02/10/20 24 024 Inactive Please dispense one month supply. pregabalin 100 mg capsule RxNorm: 314684 Take 1 Capsule(s) Oral QAM every morning 02/07/20 24 024 Inactive isosorbide mononitrate ER 60 mg tablet,extended release 24 hr RxNorm: 690281 Take 1 Tablet(s) Oral QD 02/01/20 24 025 Active aripiprazole 15 mg tablet RxNorm: 158810 Take 1/2 Tablet(s) Oral QD 02/01/20 24 025 Active torsemide 20 mg tablet RxNorm: 193534 1 TAB ORALLY DAILY (DX: EDEMA) 01/27/20 No Stop Date Active potassium chloride ER 20 mEq tablet,extended release(part/cryst) RxNorm: 7517038 2 TABS (40MEQ) ORALLY TWICE DAILY (DX: HYPOKALEMIA) 01/27/20 24 025 Inactive cephalexin 500 mg capsule RxNorm: 117605 Take 1 Capsule(s) Oral QID 12/17/19 24 08/08/2 024 Inactive cephalexin 500 mg capsule RxNorm: 957102 Take 1 Capsule(s) Oral QID 12/17/19 24 Inactive acetaminophen 500 mg tablet RxNorm: 555965 (MAX APAP:4GM/24HR) Take 1 Tablet(s) Oral TID as needed for pain 12/10/19 24 Inactive torsemide 20 mg tablet RxNorm: 967910 Take 1 Tablet(s) Oral QD 10/26/19 24 [...] %-0.3 % drops in a dropperette RxNorm: 716001 Apply 1-2 Drop(s) Both eyes BID as needed 09/28/19 24 Inactive erythromycin 5 mg/gram (0.5 %) eye ointment RxNorm: 065836 Apply 1 Application Both eyes QHS every night at bedtime Instill ~1 cm ribbon into affected eye 09/28/19 24 Inactive Artificial Tears (PF) 0.1 %-0.3 % drops in a dropperette RxNorm: 929162 Apply 1-2 Drop(s) Both eyes BID as needed 09/28/19 24 Inactive erythromycin 5 mg/gram (0.5 %) eye ointment RxNorm: 656510 Apply 1 Application Both eyes QHS every night at bedtime Instill ~1 cm ribbon into affected eye 09/28/19 24 Inactive acetaminophen 500 mg tablet RxNorm: 446915 (MAX APAP:4GM/24HR) Take 1 Tablet(s) Oral TID as needed for pain 09/24/19 24 Inactive carvedilol 25 mg tablet RxNorm: 165799 Take 1 Tablet(s) Oral QD 09/08/19 24 No Stop Date Active pregabalin 100 mg capsule RxNorm: 953501 Take 1 Capsule(s) Oral QAM every morning 09/07/19 24 024 Inactive rosuvastatin 40 mg tablet RxNorm: 158266 Take 1 Tablet(s) Oral QPM every evening 07/13/19 24 024 Inactive ezetimibe 10 mg tablet RxNorm: 418340 Take 1 Tablet(s) Oral QD 07/13/19 24 025 Inactive bisacodyl 10 mg rectal suppository RxNorm: 821965 Insert 1 Suppository Rectal QD as needed 07/13/19 No Stop Date Active polyethylene glycol 3350 17 gram/dose oral powder RxNorm: 657001 Take 17 Gram(s) Oral BID as needed mix in 4-8ox water 07/13/19 24 025 Inactive ketoconazole 2 % shampoo RxNorm: 562828 Apply 1 Application Topical UD as directed 07/13/19 No Stop Date Active Ozempic 1 mg/dose (4 mg/3 mL) subcutaneous pen injector RxNorm: 6724151 Inject 1 Milligram(s) Subcutaneous QW once a week 07/13/19 24 No Stop Date Active Guaifenesin AC 10 mg-100 mg/5 mL oral liquid RxNorm: 599673 Take 10 Milliliter(s) Oral Q4H every four hours as needed 07/13/19 24 No Stop Date Active ammonium lactate 12 % topical cream RxNorm: 115584 Apply 1 Application Topical BID 07/13/19 24 025 Inactive hydrocortisone 2.5 % topical cream RxNorm: 041983 Apply 1 Application Topical BID as needed 07/13/19 24 No Stop Date Active rosuvastatin 20 mg sprinkle capsule RxNorm: 1461569 Take 1 Capsule(s) Oral QD 07/13/19 24 025 Inactive Vascepa 1 gram capsule RxNorm: 8512830 Take 2 Capsule(s) Oral BID 07/13/19 24 024 Inactive venlafaxine ER 75 mg capsule,extended release 24 hr RxNorm: 463584 Take 3 Capsule(s) Oral QD 07/13/19 24 024 Inactive aripiprazole 15 mg tablet RxNorm: 079757 Take 1/2 Tablet(s) Oral QD 07/13/19 24 024 Inactive isosorbide mononitrate ER 60 mg tablet,extended release 24 hr RxNorm: 238017 Take 1 Tablet(s) Oral QD 07/13/19 24 024 Inactive Basaglar KwikPen U-100 Insulin 100 unit/mL (3 mL) subcutaneous RxNorm: 1293990 Inject 30U SubQ twice daily 07/07/19 24 024 Inactive Please dispense one month supply. Basaglar KwikPen U-100 Insulin 100 unit/mL (3 mL) subcutaneous RxNorm: 2042803 Inject 30U SubQ twice daily 07/07/19 24 024 Inactive Please dispense one month supply. pregabalin 150 mg capsule RxNorm: 042170 Take 1 Capsule(s) Oral QHS every night at bedtime 07/05/19 24 024 Inactive pregabalin 150 mg capsule RxNorm: 356172 Take 1 Capsule(s) Oral QHS every night at bedtime 07/05/19 24 024 Inactive polyethylene glycol 3350 17 gram/dose oral powder RxNorm: 346452 Take 1 Packet Oral QD as needed (1 packet = 17g) mix with 4-8oz of liquid 06/15/19 24 024 Inactive bisacodyl 10 mg rectal suppository RxNorm: 020408 Insert one suppository per rectum once daily as needed for constipation 06/15/19 24 024 Inactive bisacodyl 10 mg rectal suppository RxNorm: 764816 Insert one suppository per rectum once daily as needed for constipation 06/15/19 24 024 Inactive pregabalin 100 mg capsule RxNorm: 569016 Take 1 Capsule(s) Oral QAM every morning 04/27/20 23 024 Inactive Levemir FlexPen 100 unit/mL (3 mL) solution subcutaneous insulin pen RxNorm: 105420 Inject 30 Unit(s) Subcutaneous BID 04/27/20 23 024 Inactive rosuvastatin 40 mg tablet RxNorm: 342025 Take 1 Tablet(s) Oral QPM every evening 04/16/20 23 024 Inactive D/C rosuvastatin 20mg venlafaxine ER 75 mg capsule,extended release 24 hr RxNorm: 019007 Take 3 Capsule(s) Oral QD 04/14/20 023 Inactive pregabalin 100 mg capsule RxNorm: 546831 Take 1 Capsule(s) Oral QAM every morning [...] strip clotrimazole 1 % topical cream RxNorm: 618366 Take apply topically to abdominal folds twice daily for 14 days 03/12/20 024 Inactive Ozempic 1 mg/dose (4 mg/3 mL) subcutaneous pen injector RxNorm: 8932565 Inject 1 Milligram(s) Subcutaneous QW once a week 03/11/20 023 Inactive rosuvastatin 20 mg tablet RxNorm: 651304 Take 1 Tablet(s) Oral QD 02/26/20 023 Inactive d/c pravastatin 80mg Ozempic 1 mg/dose (4 mg/3 mL) subcutaneous pen injector RxNorm: 5216166 Inject 1 Milligram(s) Subcutaneous QW once a week 02/20/20 23 023 Inactive pregabalin 150 mg capsule RxNorm: 753749 Take 1 Capsule(s) Oral HS at bed time 02/19/20 23 023 Inactive pregabalin 100 mg capsule RxNorm: 607764 Take 1 Capsule(s) Oral QAM every morning 02/18/20 23 023 Inactive venlafaxine ER 75 mg capsule,extended release 24 hr RxNorm: 521699 Take 3 Capsule(s) Oral QD 02/04/20 23 023 Inactive FreeStyle Chema 2 Sensor kit RxNorm: use as directed 02/04/20 23 023 Inactive FreeStyle Chema 2 Sensor kit RxNorm: use as directed 02/04/20 23 024 Inactive fluconazole 150 mg tablet RxNorm: 111893 Take 1 Tablet(s) Oral on day 3 and on day 6 02/03/20 024 Inactive chlorthalidone 25 mg tablet RxNorm: 054678 Take 1 Tablet(s) Oral QAM every morning 02/03/20 23 024 Inactive venlafaxine ER 150 mg capsule,extended release 24 hr RxNorm: 848777 Take 1 Capsule(s) Oral QD 02/03/20 023 Inactive acetaminophen 500 mg tablet RxNorm: 765398 1 TABLET ORALLY 3 TIMES DAILY (MAX APAP:4GM/24HR) 12/15/19 23 023 Inactive clotrimazole 1 % topical cream RxNorm: 551264 apply 1g topically to top of feet and in between toes BID 12/09/19 23 025 Inactive potassium chloride ER 20 mEq tablet,extended release RxNorm: 411496 Take 1 Tablet(s) Oral BID 12/09/19 23 024 Inactive d/c 20mEq once daily (sent from hospital) nystatin 100,000 unit/gram topical powder RxNorm: 520707 APPLY TO AFFECTED AREAS TOPICALLY 2 TIMES DAILY 11/21/19 23 023 Inactive Nystop 100,000 unit/gram topical powder RxNorm: 851398 Apply to abd folds, under breasts and L side of groin Topical BID x 14 days, then BID PRN 11/20/19 23 023 Inactive dx: yeast dermatitis [place] Ultra Strength 4 %-30 %-10 % topical cream RxNorm: 810307 Apply 1 Gram(s) Topical QID PRN to feet and legs for neuropathic pain 11/11/19 23 024 Inactive clotrimazole 1 % topical cream RxNorm: 586184 Apply 1/2 Gram(s) Topical BID Apply to affected areas of groin, periarea, and abdominal topically 2 times daily 11/10/19 23 023 Inactive hydrocortisone 2.5 % topical cream RxNorm: 121807 Apply 1/2 Gram(s) Topical BID as needed 11/10/19 024 Inactive Levemir FlexPen 100 unit/mL (3 mL) solution subcutaneous insulin pen RxNorm: 870803 Inject 30 Unit(s) Subcutaneous BID 10/07/19 023 Inactive Humulin R U-500 (Concentrated) Insulin 500 unit/mL subcutaneous soln RxNorm: 263725 Inject 100 Unit(s) Subcutaneous TID 10/07/19 024 Inactive Ozempic 0.25 mg or 0.5 mg (2 mg/3 mL) subcutaneous pen injector RxNorm: 2766991 Inject 1/2 Milligram(s) Subcutaneous QW once a week 10/07/19 024 Inactive aripiprazole 15 mg tablet RxNorm: 411606 1/2 TAB (7.5MG) ORALLY DAILY (DX:MAJOR DEPRESSIVE DISORDER) 09/23/19 23 023 Inactive Accu-Chek Guide test strips RxNorm: Use 1 Test Strip QID 09/15/19 23 023 Inactive ok to substitute with any covered alternative test strip Lancets,Thin 28 gauge RxNorm: Use 1 as directed QID 09/15/19 23 023 Inactive torsemide 20 mg tablet RxNorm: 611680 Take 1 Tablet(s) Oral BID 09/09/19 23 024 Inactive d/c once daily dosing carvedilol 25 mg tablet RxNorm: 705264 Take 1 Tablet(s) Oral QD 08/25/19 024 Inactive pregabalin 150 mg capsule RxNorm: 282575 1 Capsule(s) Oral HS at bed time 08/18/19 023 Inactive pregabalin 100 mg capsule RxNorm: 287751 1 Capsule(s) Oral QAM every morning 08/18/19 023 Inactive carvedilol 25 mg tablet RxNorm: 213784 1 Tablet(s) Oral QD 07/28/19 23 023 Inactive lisinopril 20 mg tablet RxNorm: 504089 Give 1 Tablet(s) Oral QD 07/28/19 23 023 Inactive Lyrica 150 mg capsule RxNorm: 707177 Take 1 Capsule(s) Oral QHS every night at bedtime 07/19/19 23 023 Inactive d/c 100mg dose Diflucan 150 mg tablet RxNorm: 153743 Take 1 Tablet(s) Oral QD repeat on day 3 and 6 07/19/19 23 023 Inactive pregabalin 100 mg capsule RxNorm: 320693 Take 1 Capsule(s) Oral QAM every morning 07/19/19 023 Inactive gatifloxacin 0.5 % eye drops RxNorm: 043805 Instill 1 Drop(s) as directed TID Instill 1 drop in to affected eye(s) starting 1 day prior to surgery and continue until gone (do not exceed 4 weeks). 07/13/19 23 023 Inactive carvedilol 25 mg tablet RxNorm: 845253 2 Tablet(s) Oral BID 07/13/19 023 Inactive Humulin R Regular U-100 Insulin 100 unit/mL injection solution RxNorm: 415461 85 Unit(s) Injection TID 07/13/19 23 023 Inactive ketorolac 0.5 % eye drops RxNorm: 117092 Instill 1 Drop(s) as directed QID Instill 1 drop into affected eye(s) 4 times daily starting 1 day prior to surgery and continue until gone (do not exceed 4 weeks). 07/13/19 23 023 Inactive Diflucan 150 mg tablet RxNorm: 407248 Take 1 Tablet(s) Oral QD repeat on day 3 and 6 06/30/19 23 023 Inactive Accu-Chek Guide test strips RxNorm: Use 1 Test Strip QID Use 1 test strip to monitor blood glucose 4 times daily and as needed. Dx:E11.42. 06/23/19 23 023 Inactive ok to substitute with any covered alternative test strip dextromethorphan-gu aifenesin 10 mg-100 mg/5 mL oral liquid RxNorm: 516211 Take 10 Milliliter(s) Oral every 4 hours as needed for cough 06/19/19 023 Inactive dextromethorphan-gu aifenesin 10 mg-100 mg/5 mL oral liquid RxNorm: 238877 Take 10 Milliliter(s) Oral every 4 hours as needed for cough 06/19/19 023 Inactive Lyrica 150 mg capsule RxNorm: 304179 Take 1 Capsule(s) Oral QHS every night at bedtime 06/18/19 023 Inactive d/c 100mg dose aripiprazole 15 mg tablet RxNorm: 088016 / TAB (7.5MG) ORALLY DAILY (DX:MAJOR DEPRESSIVE DISORDER) 06/05/19 023 Inactive pregabalin 100 mg capsule RxNorm: 039383 1 Capsule(s) Oral QAM every morning 06/02/19 023 Inactive Banophen 50 mg capsule RxNorm: 4577991 Take 1 Capsule(s) Oral Q6H every 6 hours as needed 05/19/19 23 No Stop Date Active Novolog Flexpen U-100 Insulin aspart 100 unit/mL (3 mL) subcutaneous RxNorm: 7566888 Inject 10 Unit(s) Subcutaneous QHS every night at bedtime with nighttime snack 04/08/20 022 Inactive Novolog Flexpen U-100 Insulin aspart 100 unit/mL (3 mL) subcutaneous RxNorm: 9075223 Inject 42 Unit(s) Subcutaneous TID in addition to sliding scale 04/08/20 022 Inactive d/c 36u albuterol sulfate HFA 90 mcg/actuation aerosol inhaler RxNorm: 4618037 Take 2 Puff(s) Inhalation Q4H every four hours as needed as needed for SOB, cough, or wheezing 04/07/20 030 Active Banophen 50 mg capsule RxNorm: 0364801 Take 1 Capsule(s) Oral Q6H every 6 hours as needed 04/06/20 023 Inactive diphenhydramine 50 mg tablet RxNorm: 8065506 Take 1 Tablet(s) Oral Q6H every 6 hours as needed 04/06/20 22 022 Inactive diphenhydramine 50 mg tablet RxNorm: 2547084 1 Tablet(s) Oral Q6H every 6 hours as needed 04/06/20 22 022 Inactive Abilify 15 mg tablet RxNorm: 256047 1/2 Tablet(s) Oral QD 03/10/20 22 023 Inactive Shingrix (PF) 50 mcg/0.5 mL intramuscular suspension, kit RxNorm: 3860262 Administer 1/2 Milliliter(s) Intramuscular QD one time shingrix step 2 ( step 1 given 11/04/21) WITH needle - Nursing please administer upon arrival and once administered post a bridge message with date of administration, behavior interventionist, expiration date, and lot# so we can update [facility] 02/18/20 22 Inactive dispense with needle Shingrix (PF) 50 mcg/0.5 mL intramuscular suspension, kit RxNorm: 0018189 Administer 1/2 Milliliter(s) Intramuscular QD one time shingrix step 2 ( step 1 given 11/04/21) WITH needle - Nursing please administer upon arrival and once administered post a bridge message with date of administration, behavior interventionist, expiration date, and lot# so we can update [facility] 02/18/20 22 Inactive dispense with needle polyethylene glycol 3350 17 gram/dose oral powder RxNorm: 097013 Take 17=1 capful Gram(s) Oral QD mix with 4-8oz of liquid 01/08/20 22 025 Inactive take this in addition to BID prn order Lyrica 100 mg capsule RxNorm: 271886 Take 1 Capsule(s) Oral QAM every morning 01/08/20 22 022 Inactive d/c 50mg dose acetaminophen 500 mg tablet RxNorm: 337506 Take 1 Tablet(s) Oral TID 01/08/20 22 022 Inactive d/c PRN order Lyrica 150 mg capsule RxNorm: 389193 Take 1 Capsule(s) Oral QHS every night at bedtime 01/08/20 22 023 Inactive d/c 100mg dose Abilify 5 mg tablet RxNorm: 633418 Take 1 Tablet(s) Oral QD take 1 tab po QD #30 refill 5 dx: MDD 12/12/19 22 022 Inactive Abilify 5 mg tablet RxNorm: 933293 Take 1 Tablet(s) Oral QD take 1 tab po QD #30 refill 5 dx: MDD 12/12/19 22 022 Inactive Novolog Flexpen U-100 Insulin aspart 100 unit/mL (3 mL) subcutaneous RxNorm: 2404944 Inject 42 Unit(s) Subcutaneous TID in addition to sliding scale 12/10/19 22 022 Inactive d/c 36u chlorthalidone 25 mg tablet RxNorm: 908457 Take 1 Tablet(s) Oral QAM every morning 12/10/19 22 023 Inactive pregabalin 50 mg capsule RxNorm: 542311 Take 1 Capsule(s) Oral QAM every morning 11/12/19 22 022 Inactive tetanus-diphtheria toxoids-Td 2 Lf unit-2 Lf unit/0.5 mL IM suspension RxNorm: 139 Take 0.5 Miscellaneous Intramuscular 11/12/19 22 022 Inactive need tdap - nursing to administer upon arrival pregabalin 50 mg capsule RxNorm: 524221 Take 1 Capsule(s) Oral QAM every morning 10/16/19 22 022 Inactive pregabalin 50 mg capsule RxNorm: 401148 Take 1 Capsule(s) Oral QAM every morning 10/16/19 22 022 Inactive pregabalin 50 mg capsule RxNorm: 009759 1 Capsule(s) Oral QAM every morning 10/15/19 22 022 Inactive Shingrix (PF) 50 mcg/0.5 mL intramuscular suspension, kit RxNorm: 8048652 Administer 1/2 Milliliter(s) Intramuscular one time Nursing please administer upon arrival and once administered post a bridge message with date of administration, behavior interventionist, expiration date, and lot# so we can update [facility]. 10/09/19 22 022 Inactive shingrix step 1 Shingrix (PF) 50 mcg/0.5 mL intramuscular suspension, kit RxNorm: 4356772 Administer 1/2 Milliliter(s) Intramuscular one time Nursing please administer upon arrival and once administered post a bridge message with date of administration, behavior interventionist, expiration date, and lot# so we can [...] aspart 100 unit/mL (3 mL) subcutaneous RxNorm: 2253277 Inject 10 Unit(s) Subcutaneous QHS every night at bedtime with nighttime snack 10/08/19 22 Inactive Shingrix (PF) 50 mcg/0.5 mL intramuscular suspension, kit RxNorm: 1115947 ADMINISTER 2-DOSE SERIES PER CDC GUIDELINES 10/08/19 22 022 Active Shingrix (PF) 50 mcg/0.5 mL intramuscular suspension, kit RxNorm: 6527880 ADMINISTER 2-DOSE SERIES PER CDC GUIDELINES 10/08/19 22 022 Inactive Novolog Flexpen U-100 Insulin aspart 100 unit/mL (3 mL) subcutaneous RxNorm: 1691794 Inject 36 Unit(s) Subcutaneous TID in addition to sliding scale 10/08/19 22 Inactive cholecalciferol (vitamin D3) 1,250 mcg (50,000 unit) capsule RxNorm: 929400 Take 1 Capsule(s) Oral QW once a week 10/08/19 22 Inactive Novofine Autocover 30 gauge x 1/3 needle RxNorm: Use 1 Miscellaneous UD as directed Use 1 needle as directed to administer insulin 5 times a day Dx:E11.42. 10/03/19 22 022 Inactive ok to substitute with any covered alternative pen needle benzoyl peroxide 10 % topical cleanser RxNorm: 315042 Apply 1 Application Topical QD apply to face, wash rinse and dry once daily (may change to QOD if drying) 08/19/19 22 022 Inactive (%covered by insurance) #60ml refill 11 dx: acne benzoyl peroxide 10 % topical cleanser RxNorm: 777287 Apply 1 Application Topical QD apply to face, wash rinse and dry once daily (may change to QOD if drying) 08/19/19 22 022 Inactive (%covered by insurance) #60ml refill 11 dx: acne benzoyl peroxide 10 % topical cleanser RxNorm: 542878 Apply 1 Application Topical QD apply to face, wash rinse and dry once daily (may change to QOD if drying) 08/19/19 22 022 Inactive (%covered by insurance) #60ml refill 11 dx: acne Lyrica 50 mg capsule RxNorm: 869397 Take 1 Capsule(s) Oral QAM every morning Take 1 capsule by mouth once daily 08/19/19 022 Inactive benzoyl peroxide 10 % topical cleanser RxNorm: 200828 Apply 1 Application Topical QD apply to face, wash rinse and dry once daily (may change to QOD if drying) 08/19/19 22 022 Inactive (%covered by insurance) #60ml refill 11 dx: acne Lyrica 100 mg capsule RxNorm: 825409 Take 1 Capsule(s) Oral QHS every night at bedtime Take 1 capsule by mouth once daily at bedtime 08/19/19 22 022 Inactive Lyrica 100 mg capsule RxNorm: 730402 Take 1 Capsule(s) Oral QHS every night at bedtime Take 1 capsule by mouth once daily at bedtime 08/16/19 022 Inactive Lyrica 50 mg capsule RxNorm: 109547 Take 1 Capsule(s) Oral QAM every morning Take 1 capsule by mouth once daily 08/16/19 022 Inactive Levemir FlexTouch U-100 Insulin 100 unit/mL (3 mL) subcutaneous pen RxNorm: 629639 Inject 86 Unit(s) Subcutaneous BID 08/05/19 22 022 Inactive d/c 83units BID Lyrica 100 mg capsule RxNorm: 504391 Take 1 Capsule(s) Oral QHS every night at bedtime Take 1 capsule by mouth once daily at bedtime 07/14/19 22 Inactive Lyrica 50 mg capsule RxNorm: 794079 Take 1 Capsule(s) Oral QAM every morning Take 1 capsule by mouth once daily 07/14/19 22 Inactive Levemir FlexTouch U-100 Insulin 100 unit/mL (3 mL) subcutaneous pen RxNorm: 823961 Inject 83 Unit(s) Subcutaneous BID 07/08/19 22 [...] test strip hydralazine 50 mg tablet RxNorm: 465443 Take 1 Tablet(s) Oral QID 05/05/20 022 Inactive venlafaxine ER 225 mg tablet,extended release 24 hr RxNorm: 222589 Take 1 Tablet(s) Oral QD 05/05/20 021 Inactive venlafaxine ER 225 mg tablet,extended release 24 hr RxNorm: 095558 Take 1 Tablet(s) Oral QD 05/05/20 022 Inactive isosorbide mononitrate ER 30 mg tablet,extended release 24 hr RxNorm: 307761 Take 1 Tablet(s) Oral QD 05/05/20 024 Inactive hydralazine 50 mg tablet RxNorm: 920079 Take 1 Tablet(s) Oral QID 05/05/20 Inactive aspirin 81 mg tablet,delayed release RxNorm: 059704 Take 1 Tablet(s) Oral QD 03/31/20 022 Inactive Vitamin D2 1,250 mcg (50,000 unit) capsule RxNorm: 2237678 Take 1 Capsule(s) Oral QW once a week x 12 weeks 03/31/20 022 Inactive Vitamin D2 1,250 mcg (50,000 unit) capsule RxNorm: 7318976 Take 1 Capsule(s) Oral QW once a week 03/31/20 021 Inactive Zetia 10 mg tablet RxNorm: 746806 Take 1 Tablet(s) Oral QD 03/31/20 024 Inactive Zetia 10 mg tablet RxNorm: 780117 Take 1 Tablet(s) Oral QD 03/31/20 021 Inactive hydralazine 25 mg tablet RxNorm: 316373 Take 1 Tablet(s) Oral QID 03/31/20 021 Inactive hydralazine 25 mg tablet RxNorm: 209167 Take 1 Tablet(s) Oral QID 03/31/20 021 Inactive hydralazine 10 mg tablet RxNorm: 932879 Take 1 Tablet(s) Oral QID 03/03/20 021 Inactive cephalexin 500 mg tablet RxNorm: 088927 Take 1 Tablet(s) Oral QID 02/27/20 021 Inactive cephalexin 500 mg tablet RxNorm: 365947 Take 1 Tablet(s) Oral QID 02/27/20 021 Inactive lisinopril 40 mg tablet RxNorm: 487295 Take 1 Tablet(s) Oral QD 02/11/20 023 Inactive Eliquis 5 mg tablet RxNorm: 6925886 Take 1 Tablet(s) Oral BID 01/05/20 21 025 Inactive Eliquis 5 mg tablet RxNorm: 1897365 Take 2 Tablet(s) Oral QD 01/01/20 21 021 Inactive Lyrica 50 mg capsule RxNorm: 134688 Take 1 Capsule(s) Oral QAM every morning 12/24/19 021 Inactive Lyrica 100 mg capsule RxNorm: 694277 Take 1 Capsule(s) Oral QHS every night at bedtime 12/24/19 021 Inactive clotrimazole 1 % topical cream RxNorm: 887388 Apply to right foot and toes Topical BID 12/04/19 21 023 Inactive metoprolol succinate ER 200 mg tablet,extended release 24 hr RxNorm: 140723 Take 1 Tablet(s) Oral QD 12/04/19 023 Inactive ciprofloxacin 500 mg tablet RxNorm: 824863 Take 1 Tablet(s) Oral QD 11/30/19 21 021 Inactive DX ofloxacin otic drops Accu-Chek Guide test strips RxNorm: USE 1 TO CHECK GLUCOSE 4 TIMES DAILY AND NEEDED 11/15/19 21 023 Inactive Blood Glucose Test strips RxNorm: Use 1 Test Strip QID at PRN 11/05/19 21 023 Inactive E11.42 lisinopril 30 mg tablet RxNorm: 559049 Take 1 Tablet(s) Oral QD 10/30/19 21 021 Inactive lisinopril 20 mg tablet RxNorm: 231939 Take 1 Tablet(s) Oral QD 10/23/19 21 06/14/2 021 Inactive lisinopril 20 mg tablet RxNorm: 494381 Take 1 Tablet(s) Oral QD 10/23/19 21 021 Inactive lisinopril 10 mg tablet RxNorm: 798383 Take 1 Tablet(s) Oral QD 10/02/19 21 021 Inactive icosapent ethyl 1 gram capsule RxNorm: 2829878 Take 2 Capsule(s) (2 gm) Oral BID with meals 09/12/19 21 024 Inactive Okay to dispense one 2gm tab if you have that available. icosapent ethyl 1 gram capsule RxNorm: 6353954 Take 2 Capsule(s) Oral BID 09/12/19 21 021 Inactive Okay to dispense one 2gm tab if you have that available. amlodipine 10 mg tablet RxNorm: 940628 Take 1 Tablet(s) Oral QD 09/04/19 21 021 Inactive aspirin 81 mg tablet,delayed release RxNorm: 132116 Take 1 Tablet(s) Oral QD 09/04/19 21 021 Inactive Levemir FlexTouch U-100 Insulin 100 unit/mL (3 mL) subcutaneous pen RxNorm: 726030 Inject 150 Unit(s) Subcutaneous BID 09/04/19 21 022 Inactive venlafaxine ER 150 mg tablet,extended release 24 hr RxNorm: 765672 Take 1 Tablet(s) Oral QD 09/04/19 21 021 Inactive clotrimazole-betame thasone 1 %-0.05 % topical cream RxNorm: 779925 Apply to rash on red area on left abdomen/chest Topical BID 08/10/19 21 021 Inactive amlodipine 5 mg tablet RxNorm: 796657 Take 1 Tablet(s) Oral QD 07/31/19 21 021 Inactive cephalexin 500 mg tablet RxNorm: 700599 Take 1 Tablet(s) Oral BID BID - Twice Daily 07/31/19 21 021 Inactive Start 08/01/20 pantoprazole 40 mg tablet,delayed release RxNorm: 926859 Take 1 Tablet(s) Oral QAM every morning 07/08/19 21 025 Inactive senna 8.6 mg tablet RxNorm: 461840 Take 1 Tablet(s) Oral QD 07/08/19 21 025 Inactive carbamazepine 200 mg tablet RxNorm: 318194 Take 1 Tablet(s) Oral BID 07/08/19 21 025 Inactive clopidogrel 75 mg tablet RxNorm: 077514 Take 1 Tablet(s) Oral QD 07/08/19 021 Inactive Blood Glucose Test strips RxNorm: Use 1 Test Strip QID at PRN 07/08/19 21 021 Inactive E11.42 Novolog Flexpen U-100 Insulin aspart 100 unit/mL (3 mL) subcutaneous RxNorm: 5116508 Administer per sliding scale Milliliter(s) Subcutaneous TID 151-200: 10 u; 201-250: 20 u; 251-300: 30 u; 301-350: 40 u; 351-400: 50 u. 07/08/19 022 Inactive lisinopril 5 mg tablet RxNorm: 559598 Take 1 Tablet(s) Oral QD 07/08/19 021 Inactive Novolog Flexpen U-100 Insulin aspart 100 unit/mL (3 mL) subcutaneous RxNorm: 2478728 Inject 85 Unit(s) Subcutaneous TID 07/08/19 022 Inactive pravastatin 80 mg tablet RxNorm: 656140 Take 1 Tablet(s) Oral QHS every night at bedtime 07/08/19 21 023 Inactive clotrimazole 1 % topical cream RxNorm: 173372 Apply to bilateral groin areas Topical BID 07/08/19 21 022 Inactive metoprolol succinate ER 200 mg tablet,extended release 24 hr RxNorm: 647876 Take 1 Tablet(s) Oral QD 07/08/19 21 021 Inactive Vitamin D3 25 mcg (1,000 unit) tablet RxNorm: 496960 Take 1 Tablet(s) Oral QD 07/08/19 21 021 Inactive isosorbide dinitrate 30 mg tablet RxNorm: 449866 Take 1 Tablet(s) Oral QD 07/08/19 21 021 Inactive Levemir FlexTouch U-100 Insulin 100 unit/mL (3 mL) subcutaneous pen RxNorm: 444998 Inject 140 Unit(s) Subcutaneous BID 07/08/19 21 021 Inactive torsemide 20 mg tablet RxNorm: 553301 Take 1 Tablet(s) Oral QD 07/08/19 21 023 Inactive venlafaxine 75 mg tablet RxNorm: 009927 Take 1 Tablet(s) Oral QD 07/08/19 021 Inactive acetaminophen 500 mg tablet RxNorm: 382270 Take 1 Tablet(s) Oral TID as needed for headache 06/18/19 021 Inactive acetaminophen 500 mg tablet RxNorm: 890724 Take 1 Tablet(s) Oral TID as needed for headache 06/18/19 021 Inactive Lyrica 100 mg capsule RxNorm: 115061 Take 1 Capsule(s) Oral QHS every night at bedtime 06/11/19 021 Inactive Lyrica 50 mg capsule RxNorm: 163487 Take 1 Capsule(s) Oral QAM every morning 06/10/19 021 Inactive hydrocortisone 2.5 % topical cream RxNorm: 359373 Apply to bilateral groin creases Topical BID 05/15/20 20 021 Inactive clotrimazole 1 % topical cream RxNorm: 470303 Apply to bilateral groin areas Topical BID 05/15/20 20 021 Inactive Lyrica 50 mg capsule RxNorm: 890429 Take 1 Capsule(s) Oral QAM every morning 05/14/20 20 020 Inactive Lyrica 100 mg capsule RxNorm: 439118 Take 1 Capsule(s) Oral QHS every night [...] Inactive Nystop 100,000 unit/gram topical powder RxNorm: 791180 Apply to abd folds, under breasts and L side of groin Topical BID x 14 days, then BID PRN 04/08/20 20 Inactive dx: yeast dermatitis Lyrica 100 mg capsule RxNorm: 438914 Take 1 Capsule(s) Oral QHS every night at bedtime 03/13/20 20 Inactive Lyrica 50 mg capsule RxNorm: 330982 Take 1 Capsule(s) Oral QAM every morning 03/13/20 20 Inactive ketoconazole 2 % shampoo RxNorm: 024321 Apply Topical two times a week with showers 03/11/20 20 Inactive cholecalciferol (vitamin D3) 50 mcg (2,000 unit) tablet RxNorm: 445336 Take 1 Tablet(s) Oral QD 03/11/20 20 021 Inactive Zetia 10 mg tablet RxNorm: 535068 Take 1 Tablet(s) Oral QD 03/07/20 20 021 Inactive Zetia 10 mg tablet RxNorm: 350981 Take 1 Tablet(s) Oral QD 03/07/20 20 Inactive Lyrica 50 mg capsule RxNorm: 866546 Take 1 Capsule(s) Oral QAM every morning 02/15/20 20 Inactive Lyrica 100 mg capsule RxNorm: 842960 Take 1 Capsule(s) Oral QHS every night at bedtime 02/15/20 20 Inactive Lyrica 100 mg capsule RxNorm: 128787 Take 1 Capsule(s) Oral QHS every night at bedtime 02/15/20 20 Inactive Lyrica 50 mg capsule RxNorm: 294808 Take 1 Capsule(s) Oral QAM every morning 02/15/20 20 020 Inactive metoprolol succinate ER 200 mg tablet,extended release 24 hr RxNorm: 145875 Take 1 Tablet(s) Oral QD 08/12/19 025 Inactive loperamide 2 mg capsule RxNorm: 848383 Take 1 Capsule(s) Oral QID as needed 09/06/19 025 Inactive hydralazine 50 mg tablet RxNorm: 140261 Take 1 Tablet(s) Oral QID 08/12/19 025 Inactive Soft Touch Lancets RxNorm: miscellaneous 03/04/20 24 025 Inactive venlafaxine ER 75 mg capsule,extended release 24 hr RxNorm: 654247 Take 3 Capsule(s) Oral QD 06/12/19 023 Inactive polyethylene glycol 3350 17 gram/dose oral powder RxNorm: 821919 Take 17=1 capful Gram(s) Oral BID as needed mix with 4-8oz of liquid 06/12/19 024 Inactive icosapent ethyl 1 gram capsule RxNorm: 0631410 Take 2 Capsule(s) (2 gm) Oral BID with meals 10/07/19 023 Inactive Okay to dispense one 2gm tab if you have that available. Levemir FlexTouch U-100 Insulin 100 unit/mL (3 mL) subcutaneous pen RxNorm: 846867 Inject 80 Unit(s) Subcutaneous BID 07/14/19 023 Inactive Novolog Flexpen U-100 Insulin aspart 100 unit/mL (3 mL) subcutaneous RxNorm: 0690166 Insert 30 Unit(s) Subcutaneous TID with meals [...] Activity Notes Codes Status Date Referral: [id number] [place] [facility]erral Appointment Scheduled 10/20/2024 Referral: [facility]/Endocrinology WPtel: [address] [id number] [place] Referral No Records Received 07/10/2024 Referral: [facility] WPtel: [phone] [id number] [place] Referral Records Received 09/21/2022 Referral: [facility] WPtel: [phone] [id number] [place] Referral Completed 05/28/2021 Referral: General Cardiology [...] Sister Jyotsna involved in his care cell# [phone] Guardian: Giulia (tapan met in person 09/01/21), [...] appointment 05.26.2024 with Jessa Webster MD at [facility]. Start Pioglitazone 15 mg QD. Stop Basaglar insulin. Increase Ozempic 2 mg once wkly. Continue Humalin R U-500 100 units with meals TID. FOLLOW UP 2 MONTHS. If BG >400 add 50 units to next scheduled dose of Humalin R U 500 insulin 06/12/2024
--- OUTSIDE RECORDS SUMMARY | 2024-10-19 19:28 | XMS_ITS | CCD ---
Author Name Cecilio Durham Address [address] [place] [address] Phone Organization [facility] Phone Care Team Providers Care Underwriting Intern Name Role Phone Harrison Durham Primary Care Provider Leona vailable Unavailable Chronic Care Management Unavaila ble Summary Purpose DataExchange Insurance Providers Payer name Policy type / Coverage type Covered libertarian ID Effective Begin Date Effective End Date Medicare [place] Part B [id number] Unknown Unknown [place] Part B [id number] Unknown Unknown Family history Sister Brittany Suggs Diagnosis Age At Onset No Family Disease Entered N/A Runs in the family Diagnosis Age At Onset No Known Diseases N/A Sister Blanka Mcduffie Diagnosis Age At Onset No Family Disease Entered N/A Social History Social History Element Codes Description Effec tive Dates Tobacco history SNOMED CT: 436645241 Never smoker 01/16 Sexually Active? Unknown No [...] Alf 09/03/[address]: 854269514 No Alcohol Consum ption 09/02/2020 Allergies, Adverse Reactions, Alerts Substance Reaction Codes Entered Date Inactivated Date Status * NO KNOWN FOOD ALLERGIES Unknown 07/13/2023 No Inactive Date Active LISINOPRIL RxNorm: 96014 02/12/2020 No Inactive Da te Active Metformin [...] 250.80 06/13/2024 Active Hypertensive heart disease w [facility] heart failure ICD-10: I11.9 ICD-9: 402.90 [...] 09/07/2023 Resolved Coronary artery disease invo lving [place] coronary artery of [place] heart, angina presence unspecified ICD-10: I25.10 ICD-9: [...] Instructions nystatin 100,000 unit/gram topical powder RxNorm: 072823 Apply 1 Application Topical BID as needed abdominal/breast /groin folds 05/24/19 25 026 Active pregabalin 100 mg capsule RxNorm: 316641 Take 1 Capsule(s) Oral QAM every morning 05/22/19 25 025 Inactive nystatin 100,000 unit/gram topical powder RxNorm: 097868 Apply 1 Application Topical BID as needed abdominal/breast /groin folds 04/11/20 24 024 Inactive chlorthalidone 25 mg tablet RxNorm: 355508 Take 1 Tablet(s) Oral QAM every morning 04/06/20 24 No Stop Date Active pregabalin 150 mg capsule RxNorm: 256676 Take 1 Capsule(s) Oral QHS every night at bedtime 03/31/20 Inactive Vascepa 1 gram capsule RxNorm: 7131878 Take 2 Capsule(s) Oral BID 03/30/20 Active rosuvastatin 40 mg tablet RxNorm: 208034 1 TAB ORALLY EVERY EVENING (DX:CORONARY ARTERY DISEASE) 03/28/20 No Stop Date Active venlafaxine ER 75 mg capsule,extended release 24 hr RxNorm: 429403 3 CAPS (225MG) ORALLY DAILY (DX: MOOD DISORDER) 03/28/20 No Stop Date Active pregabalin 100 mg capsule RxNorm: 068344 Take 1 Capsule(s) Oral QAM every morning 03/20/20 Inactive cholecalciferol (vitamin D3) 1,250 mcg (50,000 unit) capsule RxNorm: 061058 Take 1 Capsule(s) Oral QW once a [...] Insulin 100 unit/mL (3 mL) subcutaneous RxNorm: 5435753 Inject 40 Unit(s) Subcutaneous BID 03/07/20 025 Inactive Please dispense one month supply. Humulin R U-500 (Concentrated) Insulin 500 unit/mL subcutaneous soln RxNorm: 490312 Inject 100 Unit(s) Subcutaneous AC before meals [...] PRN) to be use with new Accu [place] meter 03/04/20 Inactive ok to substitute with any covered alternative test strip FreeStyle Chema 2 Sensor kit RxNorm: Use UD as directed 03/02/20 Inactive FreeStyle Chema 2 Sensor kit RxNorm: Use UD as directed 03/02/20 Inactive Pen Needle 30 gauge x 516 RxNorm: Pen(s) Use 1 needle as directed TID 03/02/20 Inactive nystatin 100,000 unit/gram topical powder RxNorm: 764355 Apply 1 Application Topical BID as needed [...] (Concentrated) Insulin 500 unit/mL subcutaneous soln RxNorm: 831026 Inject 100 Unit(s) Subcutaneous TID 02/17/20 24 024 Inactive Humulin R U-500 (Concentrated) Insulin 500 unit/mL subcutaneous soln RxNorm: 741080 Inject 100 Unit(s) Subcutaneous TID 02/10/20 24 024 Inactive Radha Enrique U-100 Insulin 100 unit/mL (3 mL) subcutaneous RxNorm: 6055889 Inject 30 Unit(s) Subcutaneous BID 02/10/20 24 024 Inactive Please dispense one month supply. pregabalin 100 mg capsule RxNorm: 402522 Take 1 Capsule(s) Oral QAM every morning 02/07/20 24 024 Inactive isosorbide mononitrate ER 60 mg tablet,extended release 24 hr RxNorm: 933075 Take 1 Tablet(s) Oral QD 02/01/20 24 025 Active aripiprazole 15 mg tablet RxNorm: 898218 Take 1/2 Tablet(s) Oral QD 02/01/20 24 025 Active torsemide 20 mg tablet RxNorm: 526436 1 TAB ORALLY DAILY (DX: EDEMA) 01/27/20 No Stop Date Active potassium chloride ER 20 mEq tablet,extended release(part/cryst) RxNorm: 9523993 2 TABS (40MEQ) ORALLY TWICE DAILY (DX: HYPOKALEMIA) 01/27/20 24 025 Inactive cephalexin 500 mg capsule RxNorm: 745671 Take 1 Capsule(s) Oral QID 12/17/19 24 024 Inactive cephalexin 500 mg capsule RxNorm: 856055 Take 1 Capsule(s) Oral QID 12/17/19 24 024 Inactive acetaminophen 500 mg tablet RxNorm: 401856 (MAX APAP:4GM/24HR) Take 1 Tablet(s) Oral TID as needed for pain 12/10/19 24 024 Inactive torsemide 20 mg tablet RxNorm: 018981 Take 1 Tablet(s) Oral QD 10/26/19 24 025 Inactive potassium chloride ER 20 mEq tablet,extended release RxNorm: 19800522 Take 2 Tablet(s) Oral BID 10/26/19 24 025 Inactive torsemide 20 mg tablet RxNorm: 240750 Take 1 Tablet(s) Oral QD 10/26/19 24 024 Inactive potassium chloride ER 20 mEq tablet,extended release RxNorm: 19800522 Take 2 Tablet(s) Oral BID 10/26/19 24 Inactive Artificial Tears (PF) 0.1 %-0.3 % drops in a dropperette RxNorm: 865587 Apply 1-2 Drop(s) Both eyes BID as needed 09/28/19 24 025 Inactive erythromycin 5 mg/gram (0.5 %) eye ointment RxNorm: 150926 Apply 1 Application Both eyes QHS every night at bedtime Instill ~1 cm ribbon into affected eye 09/28/19 24 024 Inactive Artificial Tears (PF) 0.1 %-0.3 % drops in a dropperette RxNorm: 929867 Apply 1-2 Drop(s) Both eyes BID as needed 09/28/19 24 024 Inactive erythromycin 5 mg/gram (0.5 %) eye ointment RxNorm: 335361 Apply 1 Application Both eyes QHS every night at bedtime Instill ~1 cm ribbon into affected eye 09/28/19 24 024 Inactive acetaminophen 500 mg tablet RxNorm: 473868 (MAX APAP:4GM/24HR) Take 1 Tablet(s) Oral TID as needed for pain 09/24/19 24 024 Inactive carvedilol 25 mg tablet RxNorm: 725307 Take 1 Tablet(s) Oral QD 09/08/19 24 No Stop Date Active pregabalin 100 mg capsule RxNorm: 253705 Take 1 Capsule(s) Oral QAM every morning 09/07/19 24 024 Inactive ezetimibe 10 mg tablet RxNorm: 176097 Take 1 Tablet(s) Oral QD 07/13/19 24 025 Inactive bisacodyl 10 mg rectal suppository RxNorm: 476202 Insert 1 Suppository Rectal QD as needed 07/13/19 24 No Stop Date Active polyethylene glycol 3350 17 gram/dose oral powder RxNorm: 405927 Take 17 Gram(s) Oral BID as needed mix in 4-8ox water 07/13/19 24 025 Inactive ketoconazole 2 % shampoo RxNorm: 487860 Apply 1 Application Topical UD as directed 02/27/20 24 No Stop Date Active Ozempic 1 mg/dose (4 mg/3 mL) subcutaneous pen injector RxNorm: 9986110 Inject 1 Milligram(s) Subcutaneous QW once a week 07/13/19 No Stop Date Active Guaifenesin AC 10 mg-100 mg/5 mL oral liquid RxNorm: 187187 Take 10 Milliliter(s) Oral Q4H every four hours as needed 07/13/19 No Stop Date Active ammonium lactate 12 % topical cream RxNorm: 310105 Apply 1 Application Topical BID 07/13/19 24 025 Inactive hydrocortisone 2.5 % topical cream RxNorm: 717211 Apply 1 Application Topical BID as needed 07/13/19 No Stop Date Active rosuvastatin 20 mg sprinkle capsule RxNorm: 7803467 Take 1 Capsule(s) Oral QD 07/13/19 24 025 Inactive rosuvastatin 40 mg tablet RxNorm: 921994 Take 1 Tablet(s) Oral QPM every evening 07/13/19 24 024 Inactive aripiprazole 15 mg tablet RxNorm: 005953 Take 1/2 Tablet(s) Oral QD 07/13/19 24 024 Inactive isosorbide mononitrate ER 60 mg tablet,extended release 24 hr RxNorm: 871913 Take 1 Tablet(s) Oral QD 07/13/19 24 024 Inactive Vascepa 1 gram capsule RxNorm: 1272636 Take 2 Capsule(s) Oral BID 07/13/19 24 024 Inactive venlafaxine ER 75 mg capsule,extended release 24 hr RxNorm: 234744 Take 3 Capsule(s) Oral QD 07/13/19 24 024 Inactive Basaglar KwikPen U-100 Insulin 100 unit/mL (3 mL) subcutaneous RxNorm: 6782820 Inject 30U SubQ twice daily 07/07/19 24 024 Inactive Please dispense one month supply. Basaglar KwikPen U-100 Insulin 100 unit/mL (3 mL) subcutaneous RxNorm: 7291402 Inject 30U SubQ twice daily 07/07/19 24 024 Inactive Please dispense one month supply. pregabalin 150 mg capsule RxNorm: 892499 Take 1 Capsule(s) Oral QHS every night at bedtime 07/05/19 24 024 Inactive pregabalin 150 mg capsule RxNorm: 781904 Take 1 Capsule(s) Oral QHS every night at bedtime 07/05/19 24 024 Inactive polyethylene glycol 3350 17 gram/dose oral powder RxNorm: 617062 Take 1 Packet Oral QD as needed (1 packet = 17g) mix with 4-8oz of liquid 06/15/19 24 024 Inactive bisacodyl 10 mg rectal suppository RxNorm: 835322 Insert one suppository per rectum once daily as needed for constipation 06/15/19 024 Inactive bisacodyl 10 mg rectal suppository RxNorm: 089271 Insert one suppository per rectum once daily as needed for constipation 06/15/19 024 Inactive pregabalin 100 mg capsule RxNorm: 655771 Take 1 Capsule(s) Oral QAM every morning 04/27/20 23 024 Inactive Levemir FlexPen 100 unit/mL (3 mL) solution subcutaneous insulin pen RxNorm: 560064 Inject 30 Unit(s) Subcutaneous BID 04/27/20 024 Inactive rosuvastatin 40 mg tablet RxNorm: 054238 Take 1 Tablet(s) Oral QPM every evening 04/16/20 024 Inactive D/C rosuvastatin 20mg venlafaxine ER 75 mg capsule,extended release 24 hr RxNorm: 018263 Take 3 Capsule(s) Oral QD 04/14/20 23 023 Inactive pregabalin 100 mg capsule RxNorm: 571428 Take 1 Capsule(s) Oral QAM every morning [...] strip clotrimazole 1 % topical cream RxNorm: 010652 Take apply topically to abdominal folds twice daily for 14 days 03/12/20 024 Inactive Ozempic 1 mg/dose (4 mg/3 mL) subcutaneous pen injector RxNorm: 1184861 Inject 1 Milligram(s) Subcutaneous QW once a week 03/11/20 023 Inactive rosuvastatin 20 mg tablet RxNorm: 935994 Take 1 Tablet(s) Oral QD 02/26/20 023 Inactive d/c pravastatin 80mg Ozempic 1 mg/dose (4 mg/3 mL) subcutaneous pen injector RxNorm: 7495539 Inject 1 Milligram(s) Subcutaneous QW once a week 02/20/20 023 Inactive pregabalin 150 mg capsule RxNorm: 018586 Take 1 Capsule(s) Oral HS at bed time 02/19/20 23 023 Inactive pregabalin 100 mg capsule RxNorm: 163586 Take 1 Capsule(s) Oral QAM every morning 02/18/20 23 023 Inactive venlafaxine ER 75 mg capsule,extended release 24 hr RxNorm: 237811 Take 3 Capsule(s) Oral QD 02/04/20 23 023 Inactive FreeStyle Chema 2 Sensor kit RxNorm: use as directed 02/04/20 23 023 Inactive FreeStyle Chema 2 Sensor kit RxNorm: use as directed 02/04/20 23 024 Inactive fluconazole 150 mg tablet RxNorm: 188069 Take 1 Tablet(s) Oral on day 3 and on day 6 02/03/20 23 024 Inactive venlafaxine ER 150 mg capsule,extended release 24 hr RxNorm: 585736 Take 1 Capsule(s) Oral QD 02/03/20 23 023 Inactive chlorthalidone 25 mg tablet RxNorm: 906128 Take 1 Tablet(s) Oral QAM every morning 02/03/20 23 024 Inactive acetaminophen 500 mg tablet RxNorm: 238795 1 TABLET ORALLY 3 TIMES DAILY (MAX APAP:4GM/24HR) 12/15/19 23 023 Inactive clotrimazole 1 % topical cream RxNorm: 107948 apply 1g topically to top of feet and in between toes BID 12/09/19 23 025 Inactive potassium chloride ER 20 mEq tablet,extended release RxNorm: 489688 Take 1 Tablet(s) Oral BID 12/09/19 024 Inactive d/c 20mEq once daily (sent from hospital) nystatin 100,000 unit/gram topical powder RxNorm: 579574 APPLY TO AFFECTED AREAS TOPICALLY 2 TIMES DAILY 11/21/19 23 023 Inactive Nystop 100,000 unit/gram topical powder RxNorm: 471781 Apply to abd folds, under breasts and L side of groin Topical BID x 14 days, then BID PRN 11/20/19 23 023 Inactive dx: yeast dermatitis [place] Ultra Strength 4 %-30 %-10 % topical cream RxNorm: 751247 Apply 1 Gram(s) Topical QID PRN to feet and legs for neuropathic pain 11/11/19 23 024 Inactive clotrimazole 1 % topical cream RxNorm: 087857 Apply 1/2 Gram(s) Topical BID Apply to affected areas of groin, periarea, and abdominal topically 2 times daily 11/10/19 23 023 Inactive hydrocortisone 2.5 % topical cream RxNorm: 281378 Apply 1/2 Gram(s) Topical BID as needed 11/10/19 024 Inactive Levemir FlexPen 100 unit/mL (3 mL) solution subcutaneous insulin pen RxNorm: 547123 Inject 30 Unit(s) Subcutaneous BID 10/07/19 23 023 Inactive Humulin R U-500 (Concentrated) Insulin 500 unit/mL subcutaneous soln RxNorm: 002659 Inject 100 Unit(s) Subcutaneous TID 10/07/19 23 024 Inactive Ozempic 0.25 mg or 0.5 mg (2 mg/3 mL) subcutaneous pen injector RxNorm: 3039252 Inject 1/2 Milligram(s) Subcutaneous QW once a week 10/07/19 23 024 Inactive aripiprazole 15 mg tablet RxNorm: 553637 / TAB (7.5MG) ORALLY DAILY (DX:MAJOR DEPRESSIVE DISORDER) 09/23/19 23 023 Inactive Accu-Chek Guide test strips RxNorm: Use 1 Test Strip QID 09/15/19 23 023 Inactive ok to substitute with any covered alternative test strip Lancets,Thin 28 gauge RxNorm: Use 1 as directed QID 09/15/19 23 023 Inactive torsemide 20 mg tablet RxNorm: 663383 Take 1 Tablet(s) Oral BID 09/09/19 23 024 Inactive d/c once daily dosing carvedilol 25 mg tablet RxNorm: 607536 Take 1 Tablet(s) Oral QD 08/25/19 23 024 Inactive pregabalin 150 mg capsule RxNorm: 562279 1 Capsule(s) Oral HS at bed time 08/18/19 23 023 Inactive pregabalin 100 mg capsule RxNorm: 603136 1 Capsule(s) Oral QAM every morning 08/18/19 23 023 Inactive carvedilol 25 mg tablet RxNorm: 772293 1 Tablet(s) Oral QD 07/28/19 23 023 Inactive lisinopril 20 mg tablet RxNorm: 290185 Give 1 Tablet(s) Oral QD 07/28/19 23 023 Inactive Lyrica 150 mg capsule RxNorm: 932717 Take 1 Capsule(s) Oral QHS every night at bedtime 07/19/19 23 023 Inactive d/c 100mg dose Diflucan 150 mg tablet RxNorm: 869120 Take 1 Tablet(s) Oral QD repeat on day 3 and 6 07/19/19 23 023 Inactive pregabalin 100 mg capsule RxNorm: 251375 Take 1 Capsule(s) Oral QAM every morning 07/19/19 23 023 Inactive gatifloxacin 0.5 % eye drops RxNorm: 094012 Instill 1 Drop(s) as directed TID Instill 1 drop in to affected eye(s) starting 1 day prior to surgery and continue until gone (do not exceed 4 weeks). 07/13/19 23 023 Inactive carvedilol 25 mg tablet RxNorm: 195461 2 Tablet(s) Oral BID 07/13/19 023 Inactive Humulin R Regular U-100 Insulin 100 unit/mL injection solution RxNorm: 866036 85 Unit(s) Injection TID 07/13/19 23 023 Inactive ketorolac 0.5 % eye drops RxNorm: 224294 Instill 1 Drop(s) as directed QID Instill 1 drop into affected eye(s) 4 times daily starting 1 day prior to surgery and continue until gone (do not exceed 4 weeks). 07/13/19 023 Inactive Diflucan 150 mg tablet RxNorm: 387326 Take 1 Tablet(s) Oral QD repeat on day 3 and 6 06/30/19 023 Inactive Accu-Chek Guide test strips RxNorm: Use 1 Test Strip QID Use 1 test strip to monitor blood glucose 4 times daily and as needed. Dx:E11.42. 06/23/19 23 023 Inactive ok to substitute with any covered alternative test strip dextromethorphan-gu aifenesin 10 mg-100 mg/5 mL oral liquid RxNorm: 790146 Take 10 Milliliter(s) Oral every 4 hours as needed for cough 06/19/19 23 023 Inactive dextromethorphan-gu aifenesin 10 mg-100 mg/5 mL oral liquid RxNorm: 451174 Take 10 Milliliter(s) Oral every 4 hours as needed for cough 06/19/19 23 023 Inactive Lyrica 150 mg capsule RxNorm: 213743 Take 1 Capsule(s) Oral QHS every night at bedtime 06/18/19 23 023 Inactive d/c 100mg dose aripiprazole 15 mg tablet RxNorm: 742873 /2 TAB (7.5MG) ORALLY DAILY (DX:MAJOR DEPRESSIVE DISORDER) 06/05/19 23 023 Inactive pregabalin 100 mg capsule RxNorm: 635856 1 Capsule(s) Oral QAM every morning 06/02/19 023 Inactive Banophen 50 mg capsule RxNorm: 2326846 Take 1 Capsule(s) Oral Q6H every 6 hours as needed 05/19/19 No Stop Date Active Novolog Flexpen U-100 Insulin aspart 100 unit/mL (3 mL) subcutaneous RxNorm: 8220324 Inject 10 Unit(s) Subcutaneous QHS every night at bedtime with nighttime snack 04/08/20 022 Inactive Novolog Flexpen U-100 Insulin aspart 100 unit/mL (3 mL) subcutaneous RxNorm: 0414083 Inject 42 Unit(s) Subcutaneous TID in addition to sliding scale 04/08/20 Inactive d/c 36u albuterol sulfate HFA 90 mcg/actuation aerosol inhaler RxNorm: 3288154 Take 2 Puff(s) Inhalation Q4H every four hours as needed as needed for SOB, cough, or wheezing 04/07/20 030 Active Banophen 50 mg capsule RxNorm: 9665098 Take 1 Capsule(s) Oral Q6H every 6 hours as needed 04/06/20 023 Inactive diphenhydramine 50 mg tablet RxNorm: 6917561 Take 1 Tablet(s) Oral Q6H every 6 hours as needed 04/06/20 22 022 Inactive diphenhydramine 50 mg tablet RxNorm: 3201668 1 Tablet(s) Oral Q6H every 6 hours as needed 04/06/20 022 Inactive Abilify 15 mg tablet RxNorm: 887958 1/2 Tablet(s) Oral QD 03/10/20 22 023 Inactive Shingrix (PF) 50 mcg/0.5 mL intramuscular suspension, kit RxNorm: 3913389 Administer 1/2 Milliliter(s) Intramuscular QD one time shingrix step 2 ( step 1 given 11/04/21) WITH needle - Nursing please administer upon arrival and once administered post a bridge message with date of administration, button maker, expiration date, and lot# so we can update [facility] 02/18/20 22 022 Inactive dispense with needle Shingrix (PF) 50 mcg/0.5 mL intramuscular suspension, kit RxNorm: 7270761 Administer 1/2 Milliliter(s) Intramuscular QD one time shingrix step 2 ( step 1 given 11/04/21) WITH needle - Nursing please administer upon arrival and once administered post a bridge message with date of administration, button maker, expiration date, and lot# so we can update [facility] 02/18/20 22 022 Inactive dispense with needle polyethylene glycol 3350 17 gram/dose oral powder RxNorm: 780194 Take 17=1 capful Gram(s) Oral QD mix with 4-8oz of liquid 01/08/20 22 025 Inactive take this in addition to BID prn order Lyrica 100 mg capsule RxNorm: 880143 Take 1 Capsule(s) Oral QAM every morning 01/08/20 22 022 Inactive d/c 50mg dose acetaminophen 500 mg tablet RxNorm: 497457 Take 1 Tablet(s) Oral TID 01/08/20 22 022 Inactive d/c PRN order Lyrica 150 mg capsule RxNorm: 640586 Take 1 Capsule(s) Oral QHS every night at bedtime 01/08/20 22 023 Inactive d/c 100mg dose Abilify 5 mg tablet RxNorm: 394375 Take 1 Tablet(s) Oral QD take 1 tab po QD #30 refill 5 dx: MDD 12/12/19 22 022 Inactive Abilify 5 mg tablet RxNorm: 258530 Take 1 Tablet(s) Oral QD take 1 tab po QD #30 refill 5 dx: MDD 12/12/19 22 022 Inactive Novolog Flexpen U-100 Insulin aspart 100 unit/mL (3 mL) subcutaneous RxNorm: 4250775 Inject 42 Unit(s) Subcutaneous TID in addition to sliding scale 12/10/19 22 022 Inactive d/c 36u chlorthalidone 25 mg tablet RxNorm: 801982 Take 1 Tablet(s) Oral QAM every morning 12/10/19 22 023 Inactive pregabalin 50 mg capsule RxNorm: 220470 Take 1 Capsule(s) Oral QAM every morning 11/12/19 22 022 Inactive tetanus-diphtheria toxoids-Td 2 Lf unit-2 Lf unit/0.5 mL IM suspension RxNorm: 139 Take 0.5 Miscellaneous Intramuscular 11/12/19 22 022 Inactive need tdap - nursing to administer upon arrival pregabalin 50 mg capsule RxNorm: 686048 Take 1 Capsule(s) Oral QAM every morning 10/16/19 22 022 Inactive pregabalin 50 mg capsule RxNorm: 072696 Take 1 Capsule(s) Oral QAM every morning 10/16/19 22 022 Inactive pregabalin 50 mg capsule RxNorm: 853102 1 Capsule(s) Oral QAM every morning 10/15/19 22 022 Inactive Shingrix (PF) 50 mcg/0.5 mL intramuscular suspension, kit RxNorm: 2825433 Administer 1/2 Milliliter(s) Intramuscular one time Nursing please administer upon arrival and once administered post a bridge message with date of administration, button maker, expiration date, and lot# so we can update [facility]. 10/09/19 22 022 Inactive shingrix step 1 Shingrix (PF) 50 mcg/0.5 mL intramuscular suspension, kit RxNorm: 0777556 Administer 1/2 Milliliter(s) Intramuscular one time Nursing please administer upon arrival and once administered post a bridge message with date of administration, button maker, expiration date, and lot# so we [...] aspart 100 unit/mL (3 mL) subcutaneous RxNorm: 0604171 Inject 10 Unit(s) Subcutaneous QHS every night at bedtime with nighttime snack 10/08/19 22 Inactive Shingrix (PF) 50 mcg/0.5 mL intramuscular suspension, kit RxNorm: 3402428 ADMINISTER 2-DOSE SERIES PER CDC GUIDELINES 10/08/19 22 Active Shingrix (PF) 50 mcg/0.5 mL intramuscular suspension, kit RxNorm: 8801834 ADMINISTER 2-DOSE SERIES PER CDC GUIDELINES 10/08/19 22 Inactive Novolog Flexpen U-100 Insulin aspart 100 unit/mL (3 mL) subcutaneous RxNorm: 9836223 Inject 36 Unit(s) Subcutaneous TID in addition to sliding scale 10/08/19 Inactive cholecalciferol (vitamin D3) 1,250 mcg (50,000 unit) capsule RxNorm: 877766 Take 1 Capsule(s) Oral QW once a week 10/08/19 Inactive Novofine Autocover 30 gauge x 1/3 needle RxNorm: Use 1 Miscellaneous UD as directed Use 1 needle as directed to administer insulin 5 times a day Dx:E11.42. 10/03/19 22 Inactive ok to substitute with any covered alternative pen needle benzoyl peroxide 10 % topical cleanser RxNorm: 198227 Apply 1 Application Topical QD apply to face, wash rinse and dry once daily (may change to QOD if drying) 08/19/19 22 022 Inactive (%covered by insurance) #60ml refill 11 dx: acne benzoyl peroxide 10 % topical cleanser RxNorm: 583038 Apply 1 Application Topical QD apply to face, wash rinse and dry once daily (may change to QOD if drying) 08/19/19 22 022 Inactive (%covered by insurance) #60ml refill 11 dx: acne benzoyl peroxide 10 % topical cleanser RxNorm: 192046 Apply 1 Application Topical QD apply to face, wash rinse and dry once daily (may change to QOD if drying) 08/19/19 22 022 Inactive (%covered by insurance) #60ml refill 11 dx: acne Lyrica 50 mg capsule RxNorm: 086540 Take 1 Capsule(s) Oral QAM every morning Take 1 capsule by mouth once daily 08/19/19 22 Inactive benzoyl peroxide 10 % topical cleanser RxNorm: 165596 Apply 1 Application Topical QD apply to face, wash rinse and dry once daily (may change to QOD if drying) 08/19/19 22 Inactive (%covered by insurance) #60ml refill 11 dx: acne Lyrica 100 mg capsule RxNorm: 510807 Take 1 Capsule(s) Oral QHS every night at bedtime Take 1 capsule by mouth once daily at bedtime 08/19/19 022 Inactive Lyrica 100 mg capsule RxNorm: 773777 Take 1 Capsule(s) Oral QHS every night at bedtime Take 1 capsule by mouth once daily at bedtime 08/16/19 22 Inactive Lyrica 50 mg capsule RxNorm: 906735 Take 1 Capsule(s) Oral QAM every morning Take 1 capsule by mouth once daily 08/16/19 22 Inactive Levemir FlexTouch U-100 Insulin 100 unit/mL (3 mL) subcutaneous pen RxNorm: 499680 Inject 86 Unit(s) Subcutaneous BID 08/05/19 22 022 Inactive d/c 83units BID Lyrica 100 mg capsule RxNorm: 249888 Take 1 Capsule(s) Oral QHS every night at bedtime Take 1 capsule by mouth once daily at bedtime 07/14/19 22 022 Inactive Lyrica 50 mg capsule RxNorm: 968172 Take 1 Capsule(s) Oral QAM every morning Take 1 capsule by mouth once daily 07/14/19 22 022 Inactive Levemir FlexTouch U-100 Insulin 100 unit/mL (3 mL) subcutaneous pen RxNorm: 079662 Inject 83 Unit(s) Subcutaneous BID 07/08/19 22 [...] test strip hydralazine 50 mg tablet RxNorm: 035431 Take 1 Tablet(s) Oral QID 05/05/20 21 022 Inactive venlafaxine ER 225 mg tablet,extended release 24 hr RxNorm: 192818 Take 1 Tablet(s) Oral QD 05/05/20 21 021 Inactive venlafaxine ER 225 mg tablet,extended release 24 hr RxNorm: 279925 Take 1 Tablet(s) Oral QD 05/05/20 21 022 Inactive isosorbide mononitrate ER 30 mg tablet,extended release 24 hr RxNorm: 142169 Take 1 Tablet(s) Oral QD 05/05/20 21 024 Inactive hydralazine 50 mg tablet RxNorm: 238499 Take 1 Tablet(s) Oral QID 12 021 Inactive aspirin 81 mg tablet,delayed release RxNorm: 889860 Take 1 Tablet(s) Oral QD 03/31/20 022 Inactive Vitamin D2 1,250 mcg (50,000 unit) capsule RxNorm: 7501282 Take 1 Capsule(s) Oral QW once a week x 12 weeks 03/31/20 022 Inactive Vitamin D2 1,250 mcg (50,000 unit) capsule RxNorm: 0211906 Take 1 Capsule(s) Oral QW once a week 03/31/20 021 Inactive Zetia 10 mg tablet RxNorm: 455326 Take 1 Tablet(s) Oral QD 03/31/20 024 Inactive Zetia 10 mg tablet RxNorm: 260082 Take 1 Tablet(s) Oral QD 03/31/20 021 Inactive hydralazine 25 mg tablet RxNorm: 108208 Take 1 Tablet(s) Oral QID 03/31/20 021 Inactive hydralazine 25 mg tablet RxNorm: 042464 Take 1 Tablet(s) Oral QID 03/31/20 021 Inactive hydralazine 10 mg tablet RxNorm: 184263 Take 1 Tablet(s) Oral QID 03/03/20 021 Inactive cephalexin 500 mg tablet RxNorm: 370976 Take 1 Tablet(s) Oral QID 02/27/20 021 Inactive cephalexin 500 mg tablet RxNorm: 352553 Take 1 Tablet(s) Oral QID 02/27/20 021 Inactive lisinopril 40 mg tablet RxNorm: 557826 Take 1 Tablet(s) Oral QD 02/11/20 21 023 Inactive Eliquis 5 mg tablet RxNorm: 4706096 Take 1 Tablet(s) Oral BID 01/05/20 21 025 Inactive Eliquis 5 mg tablet RxNorm: 2954864 Take 2 Tablet(s) Oral QD 01/01/20 21 021 Inactive Lyrica 50 mg capsule RxNorm: 827502 Take 1 Capsule(s) Oral QAM every morning 12/24/19 21 021 Inactive Lyrica 100 mg capsule RxNorm: 467994 Take 1 Capsule(s) Oral QHS every night at bedtime 12/24/19 21 021 Inactive clotrimazole 1 % topical cream RxNorm: 845855 Apply to right foot and toes Topical BID 12/04/19 21 023 Inactive metoprolol succinate ER 200 mg tablet,extended release 24 hr RxNorm: 928351 Take 1 Tablet(s) Oral QD 12/04/19 21 023 Inactive ciprofloxacin 500 mg tablet RxNorm: 917929 Take 1 Tablet(s) Oral QD 11/30/19 21 021 Inactive DX ofloxacin otic drops Accu-Chek Guide test strips RxNorm: USE 1 TO CHECK GLUCOSE 4 TIMES DAILY AND NEEDED 11/15/19 023 Inactive Blood Glucose Test strips RxNorm: Use 1 Test Strip QID at PRN 11/05/19 21 023 Inactive E11.42 lisinopril 30 mg tablet RxNorm: 397289 Take 1 Tablet(s) Oral QD 10/30/19 021 Inactive lisinopril 20 mg tablet RxNorm: 310187 Take 1 Tablet(s) Oral QD 10/23/19 21 021 Inactive lisinopril 20 mg tablet RxNorm: 487529 Take 1 Tablet(s) Oral QD 10/23/19 21 021 Inactive lisinopril 10 mg tablet RxNorm: 380444 Take 1 Tablet(s) Oral QD 10/02/19 21 021 Inactive icosapent ethyl 1 gram capsule RxNorm: 1381866 Take 2 Capsule(s) (2 gm) Oral BID with meals 09/12/19 024 Inactive Okay to dispense one 2gm tab if you have that available. icosapent ethyl 1 gram capsule RxNorm: 1218723 Take 2 Capsule(s) Oral BID 09/12/19 21 021 Inactive Okay to dispense one 2gm tab if you have that available. amlodipine 10 mg tablet RxNorm: 979435 Take 1 Tablet(s) Oral QD 09/04/19 021 Inactive aspirin 81 mg tablet,delayed release RxNorm: 149153 Take 1 Tablet(s) Oral QD 09/04/19 21 021 Inactive Levemir FlexTouch U-100 Insulin 100 unit/mL (3 mL) subcutaneous pen RxNorm: 823260 Inject 150 Unit(s) Subcutaneous BID 09/04/19 022 Inactive venlafaxine ER 150 mg tablet,extended release 24 hr RxNorm: 934998 Take 1 Tablet(s) Oral QD 09/04/19 21 021 Inactive clotrimazole-betame thasone 1 %-0.05 % topical cream RxNorm: 248452 Apply to rash on red area on left abdomen/chest Topical BID 08/10/19 21 021 Inactive amlodipine 5 mg tablet RxNorm: 325436 Take 1 Tablet(s) Oral QD 07/31/19 021 Inactive cephalexin 500 mg tablet RxNorm: 483149 Take 1 Tablet(s) Oral BID BID - Twice Daily 07/31/19 021 Inactive Start 08/01/20 pantoprazole 40 mg tablet,delayed release RxNorm: 400898 Take 1 Tablet(s) Oral QAM every morning 07/08/19 21 025 Inactive senna 8.6 mg tablet RxNorm: 736531 Take 1 Tablet(s) Oral QD 07/08/19 21 025 Inactive carbamazepine 200 mg tablet RxNorm: 696166 Take 1 Tablet(s) Oral BID 07/08/19 21 025 Inactive clopidogrel 75 mg tablet RxNorm: 055694 Take 1 Tablet(s) Oral QD 07/08/19 21 021 Inactive Blood Glucose Test strips RxNorm: Use 1 Test Strip QID at PRN 07/08/19 21 021 Inactive E11.42 Novolog Flexpen U-100 Insulin aspart 100 unit/mL (3 mL) subcutaneous RxNorm: 1016272 Administer per sliding scale Milliliter(s) Subcutaneous TID 151-200: 10 u; 201-250: 20 u; 251-300: 30 u; 301-350: 40 u; 351-400: 50 u. 07/08/19 21 022 Inactive lisinopril 5 mg tablet RxNorm: 902159 Take 1 Tablet(s) Oral QD 07/08/19 021 Inactive Novolog Flexpen U-100 Insulin aspart 100 unit/mL (3 mL) subcutaneous RxNorm: 8760488 Inject 85 Unit(s) Subcutaneous TID 07/08/19 022 Inactive pravastatin 80 mg tablet RxNorm: 254975 Take 1 Tablet(s) Oral QHS every night at bedtime 07/08/19 023 Inactive clotrimazole 1 % topical cream RxNorm: 826927 Apply to bilateral groin areas Topical BID 07/08/19 022 Inactive metoprolol succinate ER 200 mg tablet,extended release 24 hr RxNorm: 623915 Take 1 Tablet(s) Oral QD 07/08/19 021 Inactive Vitamin D3 25 mcg (1,000 unit) tablet RxNorm: 246987 Take 1 Tablet(s) Oral QD 07/08/19 021 Inactive isosorbide dinitrate 30 mg tablet RxNorm: 912940 Take 1 Tablet(s) Oral QD 07/08/19 021 Inactive Levemir FlexTouch U-100 Insulin 100 unit/mL (3 mL) subcutaneous pen RxNorm: 254674 Inject 140 Unit(s) Subcutaneous BID 07/08/19 021 Inactive torsemide 20 mg tablet RxNorm: 880385 Take 1 Tablet(s) Oral QD 07/08/19 023 Inactive venlafaxine 75 mg tablet RxNorm: 837433 Take 1 Tablet(s) Oral QD 07/08/19 021 Inactive acetaminophen 500 mg tablet RxNorm: 059599 Take 1 Tablet(s) Oral TID as needed for headache 06/18/19 021 Inactive acetaminophen 500 mg tablet RxNorm: 443191 Take 1 Tablet(s) Oral TID as needed for headache 06/18/19 021 Inactive Lyrica 100 mg capsule RxNorm: 669038 Take 1 Capsule(s) Oral QHS every night at bedtime 06/11/19 21 021 Inactive Lyrica 50 mg capsule RxNorm: 512121 Take 1 Capsule(s) Oral QAM every morning 06/10/19 21 021 Inactive hydrocortisone 2.5 % topical cream RxNorm: 823089 Apply to bilateral groin creases Topical BID 05/15/20 20 021 Inactive clotrimazole 1 % topical cream RxNorm: 951016 Apply to bilateral groin areas Topical BID 05/15/20 20 021 Inactive Lyrica 50 mg capsule RxNorm: 081143 Take 1 Capsule(s) Oral QAM every morning 05/14/20 20 Inactive Lyrica 100 mg capsule RxNorm: 162740 Take 1 Capsule(s) Oral QHS every night [...] Inactive Nystop 100,000 unit/gram topical powder RxNorm: 539730 Apply to abd folds, under breasts and L side of groin Topical BID x 14 days, then BID PRN 04/08/20 20 020 Inactive dx: yeast dermatitis Lyrica 100 mg capsule RxNorm: 585673 Take 1 Capsule(s) Oral QHS every night at bedtime 03/13/20 20 020 Inactive Lyrica 50 mg capsule RxNorm: 513879 Take 1 Capsule(s) Oral QAM every morning 03/13/20 20 Inactive ketoconazole 2 % shampoo RxNorm: 339307 Apply Topical two times a week with showers 03/11/20 20 024 Inactive cholecalciferol (vitamin D3) 50 mcg (2,000 unit) tablet RxNorm: 442571 Take 1 Tablet(s) Oral QD 03/11/20 20 021 Inactive Zetia 10 mg tablet RxNorm: 667786 Take 1 Tablet(s) Oral QD 03/07/20 20 021 Inactive Zetia 10 mg tablet RxNorm: 858582 Take 1 Tablet(s) Oral QD 03/07/20 20 Inactive Lyrica 50 mg capsule RxNorm: 669654 Take 1 Capsule(s) Oral QAM every morning 02/15/20 20 Inactive Lyrica 100 mg capsule RxNorm: 091043 Take 1 Capsule(s) Oral QHS every night at bedtime 02/15/20 20 Inactive Lyrica 100 mg capsule RxNorm: 200372 Take 1 Capsule(s) Oral QHS every night at bedtime 02/15/20 20 Inactive Lyrica 50 mg capsule RxNorm: 575538 Take 1 Capsule(s) Oral QAM every morning 02/15/20 20 020 Inactive metoprolol succinate ER 200 mg tablet,extended release 24 hr RxNorm: 077981 Take 1 Tablet(s) Oral QD 08/12/19 025 Inactive loperamide 2 mg capsule RxNorm: 171350 Take 1 Capsule(s) Oral QID as needed 09/06/19 25 025 Inactive hydralazine 50 mg tablet RxNorm: 306941 Take 1 Tablet(s) Oral QID 08/12/19 23 025 Inactive Soft Touch Lancets RxNorm: miscellaneous 03/04/20 24 025 Inactive venlafaxine ER 75 mg capsule,extended release 24 hr RxNorm: 077967 Take 3 Capsule(s) Oral QD 06/12/19 22 023 Inactive polyethylene glycol 3350 17 gram/dose oral powder RxNorm: 429998 Take 17=1 capful Gram(s) Oral BID as needed mix with 4-8oz of liquid 06/12/19 22 024 Inactive icosapent ethyl 1 gram capsule RxNorm: 3005736 Take 2 Capsule(s) (2 gm) Oral BID with meals 10/07/19 023 Inactive Okay to dispense one 2gm tab if you have that available. Levemir FlexTouch U-100 Insulin 100 unit/mL (3 mL) subcutaneous pen RxNorm: 796754 Inject 80 Unit(s) Subcutaneous BID 07/14/19 23 023 Inactive Novolog Flexpen U-100 Insulin aspart 100 unit/mL (3 mL) subcutaneous RxNorm: 8698477 Insert 30 Unit(s) Subcutaneous TID with meals [...] Procedures Procedure Codes Date Toenail Debridement CPT-4: 51323 06/13/2024 SYS BP LESS 140 CPT-4: G8752 [...] Encounter Performer Location Location Address Codes Date ([address]) Home or Residence Visit Est Pt - [...] intertrigo[ICD10: B37.2] Diagnosis: Hemorrhoids[ICD10: K64.9] Diagnosis: Onychogryposis[ICD10: L60.2] Harrison Munson [facility] [address] [address] [place] [id number] CPT-4: 82163 06/13/2024 Plan of Care Planned Activity Notes Codes Status Date Referral: [facility] [address] [id number] Appointment Scheduled 10/20/2024 Referral: [facility]/Endocrinology WPtel: [address] [facility], [address] [id number] [place] Referral No Records Received 07/10/2024 Appointment: Brian Munson WPtel: [address] [facility] 300 [id number] [place] AWV 02/08/2024 Appointment: Brian Munson WPtel: [address] [facility] 300 [id number] [place] F/U 01/11/2024 Appointment: Sandra Clark WPtel: [address] [facility] 300 [id number] [place] Telehealth Psych Follow Up 12/09 Appointment: Tapan Shirley WPtel: [address] [facility] 300 [id number] [place] [facility] 10/26/2022 Referral: [facility] WPtel: [address], [address] [id number] [place] Referral Records Received 09/21/2022 Appointment: Tapan Shirley WPtel: [address] [facility] 300 [id number] [place] F/U 08/11/2022 Appointment: Tapan Shirley WPtel: [address] [facility] 300 [id number] [place] F/U 07/14/2022 Appointment: Tapan Shirley WPtel: [address] [facility] 300 [id number] [place] F/U 02/10/2022 Referral: [facility] WPtel: [address] [id number] [place] Referral Completed 05/28/2021 Referral: General Cardiology [...] Sister Jyotsna involved in his care cell# [phone] Guardian: Giulia (tapan met in person 09/01/21), [...] 05.26.2024 with Jessa Webster MD at [facility]. Start Pioglitazone 15 mg QD. Stop Basaglar insulin. Increase Ozempic 2 mg once wkly. Continue Humalin R U-500 100 units with meals TID. FOLLOW UP 2 MONTHS. If BG >400 add 50 units to next scheduled dose of Humalin R U 500 insulin 06/12/2024 Hemorrhoids ColoRectal appointment next week. Discussed in HPI. Hypertensive heart disease without heart failure lab results: BMP Na 139. K 3.7. BUN 16.9. Creatinine 1.02. eGFR 82. Medication regimen: Multiple anti-hypertensives. Amlodipine 10 mg QD. Chlorthalidone 25 mg QD. Hydralazine 50 mg QID. Isosorbide mononitriate ER 60 mg QD. Metoprolol ER 200 mg QD. Potassium chloride ER 40 mEq BID. Torsemide 20 mg QD. Hypokalemia serum potassium 3.7. Continue current medication regimen including potassium supplementation. Hyperlipidemia associated with type 2 diabetes mellitus : Lipid panel TC 116. Trigs 575H. HDL 28L. LDL cannot calculate because trigs >400. nonHDL 88. Chronic hyperglycemia leading to further elevated triglycerides. 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 Education on healthy dietary intake provided although [facility] does not follow these recommendations and facility does not provide special dietary meals. Continue: Ezetimibe 10 mg PO QD. Rosuvastatin 40 mg PO QD. Vascepa 2 grams PO BID. Lipid panel to be followed up yearly. Stage 2 chronic 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 05.15.2024: BMP Na 139. K 3.7. BUN 16.9. Creatinine 1.02. eGFR 82. Monitor BMP every 3 months. Control BP as appropriate for age, risk for falls, and life expectancy. Avoid nephrotoxic medications. Renal dose medications as appropriate. Onychogryposis 6 toenails total trimmed today. Candidal intertrigo History of abdominal folds and groins. Currently of left breast fold. Nystatin powder is working well for him. Nursing shares he only allows some staff members to assist with administration of the Nystatin. No open skin present today. Personal hygiene education stressed. Continue nystatin powder and clotrimazole cream PRN. Type 2 diabetes mellitus with diabetic polyneuropathy, with long-term current use of insulin A1c reviewed from last Endocrinology appointment. (9.4%) Dr. Martines's office has discharged the patient unfortunately. See HPI for details. New referral placed for endocrinology at April visit. Visit note reviewed: Endocrinology appointment 05.26.2024 with Jessa Webster MD at [facility]. Start Pioglitazone 15 mg QD. Stop Basaglar insulin. Increase Ozempic 2 mg once wkly. Continue Humalin R U-500 100 units with meals TID. FOLLOW UP 2 MONTHS. If BG >400 add 50 units to next scheduled dose of Humalin R U 500 insulin. Continue close follow up with new refinery operator vapor recovery unit. Continue medication regimen set forth by specialty team. PCP will defer diabetes management for specialist. . 06/13/2024
--- OUTSIDE RECORDS SUMMARY | 2024-10-19 19:30 | XMS_ITS | CCD ---
Author Organization Unknown Care Team Providers Care Hematology Technician Name Role Phone Harrison Durham Primary Care Provider Leona vailable Unavailable Chronic Care Management Unavaila ble Summary Purpose DataExchange Insurance Providers Payer name Policy type / Coverage type Covered constitution party ID Effective Begin Date Effective End Date [place] B [id number] Unknown Unknown [place] B [id number] Unknown Unknown Family history Sister Brittany Suggs Diagnosis Age At Onset No Family Disease Entered N/A Runs in the family Diagnosis Age At Onset No Known Diseases N/A Sister Blanka Mcduffie Diagnosis Age At Onset No Family Disease Entered N/A Social History Social History Element Codes Description Effec tive Dates Tobacco history SNOMED CT: 790950507 Never smoker 01/16 Sexually Active? Unknown No [...] Snf 09/03/[address]: 091446177 No Alcohol Consum ption 09/02/2020 Allergies, Adverse Reactions, Alerts Substance Reaction Codes Entered Date Inactivated Date Status * NO KNOWN FOOD ALLERGIES Unknown 07/13/2023 No Inactive Date Active LISINOPRIL RxNorm: 13788 02/12/2020 No Inactive Da te Active Metformin [...] Fill Instructions pregabalin 100 mg capsule RxNorm: 360616 Take 1 Capsule(s) Oral QAM every morning 03/20/20 024 Inactive cholecalciferol (vitamin D3) 1,250 mcg (50,000 unit) capsule RxNorm: 393917 Take 1 Capsule(s) Oral QW once a [...] Insulin 100 unit/mL (3 mL) subcutaneous RxNorm: 3123004 Inject 40 Unit(s) Subcutaneous BID 03/07/20 025 Inactive Please dispense one month supply. Humulin R U-500 (Concentrated) Insulin 500 unit/mL subcutaneous soln RxNorm: 599938 Inject 100 Unit(s) Subcutaneous AC before meals [...] PRN) to be use with new Accu [place] meter 03/04/20 Inactive ok to substitute with any covered alternative test strip FreeStyle Chema 2 Sensor kit RxNorm: Use UD as directed 03/02/20 Inactive FreeStyle Chema 2 Sensor kit RxNorm: Use UD as directed 03/02/20 Inactive Pen Needle 30 gauge x 5/16 RxNorm: Pen(s) Use 1 needle as directed TID 03/02/20 Inactive nystatin 100,000 unit/gram topical powder RxNorm: 056523 Apply 1 Application Topical BID as needed abdominal/breast /groin folds 03/02/20 Inactive Accu-Chek Guide test strips RxNorm: Use 1 Test Strip QID 03/02/20 Inactive ok to substitute with any covered alternative test strip Lancets,Thin 28 gauge RxNorm: Use 1 as directed QID lancet 03/02/2003/07/2 024 Inactive Pen Needle 30 gauge x 5/16 RxNorm: Pen(s) Use 1 needle as directed TID 03/02/20 24 Inactive Humulin R U-500 (Concentrated) Insulin 500 unit/mL subcutaneous soln RxNorm: 547463 Inject 100 Unit(s) Subcutaneous TID 02/17/20 24 024 Inactive Humulin R U-500 (Concentrated) Insulin 500 unit/mL subcutaneous soln RxNorm: 657967 Inject 100 Unit(s) Subcutaneous TID 02/10/20 24 024 Inactive Basaglar KwikPen U-100 Insulin 100 unit/mL (3 mL) subcutaneous RxNorm: 8779175 Inject 30 Unit(s) Subcutaneous BID 02/10/20 24 024 Inactive Please dispense one month supply. pregabalin 100 mg capsule RxNorm: 863459 Take 1 Capsule(s) Oral QAM every morning 02/07/20 24 024 Inactive isosorbide mononitrate ER 60 mg tablet,extended release 24 hr RxNorm: 528450 Take 1 Tablet(s) Oral QD 02/01/20 24 025 Active aripiprazole 15 mg tablet RxNorm: 704870 Take 1/2 Tablet(s) Oral QD 02/01/20 24 025 Active torsemide 20 mg tablet RxNorm: 134756 1 TAB ORALLY DAILY (DX: EDEMA) 01/27/20 No Stop Date Active potassium chloride ER 20 mEq tablet,extended release(part/cryst) RxNorm: 0817678 2 TABS (40MEQ) ORALLY TWICE DAILY (DX: HYPOKALEMIA) 01/27/20 24 025 Inactive cephalexin 500 mg capsule RxNorm: 741412 Take 1 Capsule(s) Oral QID 12/17/19 24 024 Inactive cephalexin 500 mg capsule RxNorm: 477724 Take 1 Capsule(s) Oral QID 12/17/19 24 024 Inactive acetaminophen 500 mg tablet RxNorm: 317876 (MAX APAP:4GM/24HR) Take 1 Tablet(s) Oral TID as needed for pain 12/10/19 24 12/26/2 024 Inactive torsemide 20 mg tablet RxNorm: 024391 Take 1 Tablet(s) Oral QD 10/26/19 Inactive [...] %-0.3 % drops in a dropperette RxNorm: 872179 Apply 1-2 Drop(s) Both eyes BID as needed 09/28/19 Inactive erythromycin 5 mg/gram (0.5 %) eye ointment RxNorm: 966525 Apply 1 Application Both eyes QHS every night at bedtime Instill ~1 cm ribbon into affected eye 09/28/19 24 Inactive Artificial Tears (PF) 0.1 %-0.3 % drops in a dropperette RxNorm: 244396 Apply 1-2 Drop(s) Both eyes BID as needed 09/28/19 Inactive erythromycin 5 mg/gram (0.5 %) eye ointment RxNorm: 476156 Apply 1 Application Both eyes QHS every night at bedtime Instill ~1 cm ribbon into affected eye 09/28/19 24 Inactive acetaminophen 500 mg tablet RxNorm: 517705 (MAX APAP:4GM/24HR) Take 1 Tablet(s) Oral TID as needed for pain 09/24/19 24 Inactive carvedilol 25 mg tablet RxNorm: 201146 Take 1 Tablet(s) Oral QD 09/08/19 24 No Stop Date Active pregabalin 100 mg capsule RxNorm: 400456 Take 1 Capsule(s) Oral QAM every morning 09/07/19 24 Inactive rosuvastatin 40 mg tablet RxNorm: 855520 Take 1 Tablet(s) Oral QPM every evening 07/13/19 24 11/12/2 024 Inactive ezetimibe 10 mg tablet RxNorm: 281746 Take 1 Tablet(s) Oral QD 07/13/19 24 025 Inactive bisacodyl 10 mg rectal suppository RxNorm: 814588 Insert 1 Suppository Rectal QD as needed 07/13/19 No Stop Date Active polyethylene glycol 3350 17 gram/dose oral powder RxNorm: 109599 Take 17 Gram(s) Oral BID as needed mix in 4-8ox water 07/13/19 24 025 Inactive ketoconazole 2 % shampoo RxNorm: 927885 Apply 1 Application Topical UD as directed 07/13/19 No Stop Date Active Ozempic 1 mg/dose (4 mg/3 mL) subcutaneous pen injector RxNorm: 3913050 Inject 1 Milligram(s) Subcutaneous QW once a week 07/13/19 No Stop Date Active Guaifenesin AC 10 mg-100 mg/5 mL oral liquid RxNorm: 850266 Take 10 Milliliter(s) Oral Q4H every four hours as needed 07/13/19 No Stop Date Active ammonium lactate 12 % topical cream RxNorm: 431147 Apply 1 Application Topical BID 07/13/19 24 025 Inactive hydrocortisone 2.5 % topical cream RxNorm: 196982 Apply 1 Application Topical BID as needed 07/13/19 No Stop Date Active rosuvastatin 20 mg sprinkle capsule RxNorm: 0972779 Take 1 Capsule(s) Oral QD 07/13/19 24 025 Inactive Vascepa 1 gram capsule RxNorm: 4048870 Take 2 Capsule(s) Oral BID 07/13/19 24 024 Inactive venlafaxine ER 75 mg capsule,extended release 24 hr RxNorm: 666190 Take 3 Capsule(s) Oral QD 07/13/19 24 024 Inactive aripiprazole 15 mg tablet RxNorm: 678565 Take 1/2 Tablet(s) Oral QD 07/13/19 24 024 Inactive isosorbide mononitrate ER 60 mg tablet,extended release 24 hr RxNorm: 075193 Take 1 Tablet(s) Oral QD 07/13/19 24 024 Inactive Basaglar KwikPen U-100 Insulin 100 unit/mL (3 mL) subcutaneous RxNorm: 4686672 Inject 30U SubQ twice daily 07/07/19 24 024 Inactive Please dispense one month supply. Basaglar KwikPen U-100 Insulin 100 unit/mL (3 mL) subcutaneous RxNorm: 1727420 Inject 30U SubQ twice daily 07/07/19 24 024 Inactive Please dispense one month supply. pregabalin 150 mg capsule RxNorm: 949824 Take 1 Capsule(s) Oral QHS every night at bedtime 07/05/19 24 024 Inactive pregabalin 150 mg capsule RxNorm: 597990 Take 1 Capsule(s) Oral QHS every night at bedtime 07/05/19 24 024 Inactive polyethylene glycol 3350 17 gram/dose oral powder RxNorm: 466280 Take 1 Packet Oral QD as needed (1 packet = 17g) mix with 4-8oz of liquid 06/15/19 24 024 Inactive bisacodyl 10 mg rectal suppository RxNorm: 033367 Insert one suppository per rectum once daily as needed for constipation 06/15/19 24 024 Inactive bisacodyl 10 mg rectal suppository RxNorm: 304095 Insert one suppository per rectum once daily as needed for constipation 06/15/19 24 024 Inactive pregabalin 100 mg capsule RxNorm: 613820 Take 1 Capsule(s) Oral QAM every morning 04/27/20 23 024 Inactive Levemir FlexPen 100 unit/mL (3 mL) solution subcutaneous insulin pen RxNorm: 113142 Inject 30 Unit(s) Subcutaneous BID 04/27/20 23 024 Inactive rosuvastatin 40 mg tablet RxNorm: 989623 Take 1 Tablet(s) Oral QPM every evening 04/16/20 23 024 Inactive D/C rosuvastatin 20mg venlafaxine ER 75 mg capsule,extended release 24 hr RxNorm: 259347 Take 3 Capsule(s) Oral QD 04/14/20 23 023 Inactive pregabalin 100 mg capsule RxNorm: 135125 Take 1 Capsule(s) Oral QAM every morning [...] strip clotrimazole 1 % topical cream RxNorm: 199205 Take apply topically to abdominal folds twice daily for 14 days 03/12/20 024 Inactive Ozempic 1 mg/dose (4 mg/3 mL) subcutaneous pen injector RxNorm: 9462894 Inject 1 Milligram(s) Subcutaneous QW once a week 03/11/20 23 023 Inactive rosuvastatin 20 mg tablet RxNorm: 505303 Take 1 Tablet(s) Oral QD 02/26/20 23 023 Inactive d/c pravastatin 80mg Ozempic 1 mg/dose (4 mg/3 mL) subcutaneous pen injector RxNorm: 1390653 Inject 1 Milligram(s) Subcutaneous QW once a week 02/20/20 23 023 Inactive pregabalin 150 mg capsule RxNorm: 729125 Take 1 Capsule(s) Oral HS at bed time 02/19/20 23 023 Inactive pregabalin 100 mg capsule RxNorm: 430937 Take 1 Capsule(s) Oral QAM every morning 02/18/20 23 023 Inactive venlafaxine ER 75 mg capsule,extended release 24 hr RxNorm: 604296 Take 3 Capsule(s) Oral QD 02/04/20 23 023 Inactive FreeStyle Chema 2 Sensor kit RxNorm: use as directed 02/04/20 23 023 Inactive FreeStyle Chema 2 Sensor kit RxNorm: use as directed 02/04/20 23 024 Inactive fluconazole 150 mg tablet RxNorm: 718634 Take 1 Tablet(s) Oral on day 3 and on day 6 02/03/20 23 024 Inactive chlorthalidone 25 mg tablet RxNorm: 620814 Take 1 Tablet(s) Oral QAM every morning 02/03/20 23 024 Inactive venlafaxine ER 150 mg capsule,extended release 24 hr RxNorm: 079872 Take 1 Capsule(s) Oral QD 02/03/20 23 023 Inactive acetaminophen 500 mg tablet RxNorm: 346706 1 TABLET ORALLY 3 TIMES DAILY (MAX APAP:4GM/24HR) 12/15/19 23 023 Inactive clotrimazole 1 % topical cream RxNorm: 891239 apply 1g topically to top of feet and in between toes BID 12/09/19 23 025 Inactive potassium chloride ER 20 mEq tablet,extended release RxNorm: 292253 Take 1 Tablet(s) Oral BID 12/09/19 024 Inactive d/c 20mEq once daily (sent from hospital) nystatin 100,000 unit/gram topical powder RxNorm: 878280 APPLY TO AFFECTED AREAS TOPICALLY 2 TIMES DAILY 11/21/19 23 023 Inactive Nystop 100,000 unit/gram topical powder RxNorm: 128414 Apply to abd folds, under breasts and L side of groin Topical BID x 14 days, then BID PRN 11/20/19 23 023 Inactive dx: yeast dermatitis [place] Ultra Strength 4 %-30 %-10 % topical cream RxNorm: 597214 Apply 1 Gram(s) Topical QID PRN to feet and legs for neuropathic pain 11/11/19 23 024 Inactive clotrimazole 1 % topical cream RxNorm: 019749 Apply 1/2 Gram(s) Topical BID Apply to affected areas of groin, periarea, and abdominal topically 2 times daily 11/10/19 23 023 Inactive hydrocortisone 2.5 % topical cream RxNorm: 090375 Apply 1/2 Gram(s) Topical BID as needed 11/10/19 23 024 Inactive Levemir FlexPen 100 unit/mL (3 mL) solution subcutaneous insulin pen RxNorm: 720892 Inject 30 Unit(s) Subcutaneous BID 10/07/19 23 023 Inactive Humulin R U-500 (Concentrated) Insulin 500 unit/mL subcutaneous soln RxNorm: 104412 Inject 100 Unit(s) Subcutaneous TID 10/07/19 23 024 Inactive Ozempic 0.25 mg or 0.5 mg (2 mg/3 mL) subcutaneous pen injector RxNorm: 1048904 Inject 1/2 Milligram(s) Subcutaneous QW once a week 10/07/19 23 024 Inactive aripiprazole 15 mg tablet RxNorm: 337714 /2 TAB (7.5MG) ORALLY DAILY (DX:MAJOR DEPRESSIVE DISORDER) 09/23/19 023 Inactive Accu-Chek Guide test strips RxNorm: Use 1 Test Strip QID 09/15/19 023 Inactive ok to substitute with any covered alternative test strip Lancets,Thin 28 gauge RxNorm: Use 1 as directed QID 09/15/19 23 023 Inactive torsemide 20 mg tablet RxNorm: 122113 Take 1 Tablet(s) Oral BID 09/09/19 23 024 Inactive d/c once daily dosing carvedilol 25 mg tablet RxNorm: 710706 Take 1 Tablet(s) Oral QD 08/25/19 23 024 Inactive pregabalin 150 mg capsule RxNorm: 340371 1 Capsule(s) Oral HS at bed time 08/18/19 023 Inactive pregabalin 100 mg capsule RxNorm: 887944 1 Capsule(s) Oral QAM every morning 08/18/19 023 Inactive carvedilol 25 mg tablet RxNorm: 869810 1 Tablet(s) Oral QD 07/28/19 23 023 Inactive lisinopril 20 mg tablet RxNorm: 080064 Give 1 Tablet(s) Oral QD 07/28/19 23 023 Inactive Lyrica 150 mg capsule RxNorm: 424832 Take 1 Capsule(s) Oral QHS every night at bedtime 07/19/19 23 023 Inactive d/c 100mg dose Diflucan 150 mg tablet RxNorm: 469924 Take 1 Tablet(s) Oral QD repeat on day 3 and 6 07/19/19 23 023 Inactive pregabalin 100 mg capsule RxNorm: 146553 Take 1 Capsule(s) Oral QAM every morning 07/19/19 23 023 Inactive gatifloxacin 0.5 % eye drops RxNorm: 087959 Instill 1 Drop(s) as directed TID Instill 1 drop in to affected eye(s) starting 1 day prior to surgery and continue until gone (do not exceed 4 weeks). 07/13/19 23 023 Inactive carvedilol 25 mg tablet RxNorm: 384385 2 Tablet(s) Oral BID 07/13/19 23 023 Inactive Humulin R Regular U-100 Insulin 100 unit/mL injection solution RxNorm: 653672 85 Unit(s) Injection TID 07/13/19 23 023 Inactive ketorolac 0.5 % eye drops RxNorm: 600895 Instill 1 Drop(s) as directed QID Instill 1 drop into affected eye(s) 4 times daily starting 1 day prior to surgery and continue until gone (do not exceed 4 weeks). 07/13/19 23 023 Inactive Diflucan 150 mg tablet RxNorm: 693135 Take 1 Tablet(s) Oral QD repeat on day 3 and 6 06/30/19 23 023 Inactive Accu-Chek Guide test strips RxNorm: Use 1 Test Strip QID Use 1 test strip to monitor blood glucose 4 times daily and as needed. Dx:E11.42. 06/23/19 23 023 Inactive ok to substitute with any covered alternative test strip dextromethorphan-gu aifenesin 10 mg-100 mg/5 mL oral liquid RxNorm: 393841 Take 10 Milliliter(s) Oral every 4 hours as needed for cough 06/19/19 23 023 Inactive dextromethorphan-gu aifenesin 10 mg-100 mg/5 mL oral liquid RxNorm: 589798 Take 10 Milliliter(s) Oral every 4 hours as needed for cough 06/19/19 023 Inactive Lyrica 150 mg capsule RxNorm: 100969 Take 1 Capsule(s) Oral QHS every night at bedtime 06/18/19 023 Inactive d/c 100mg dose aripiprazole 15 mg tablet RxNorm: 682035 /2 TAB (7.5MG) ORALLY DAILY (DX:MAJOR DEPRESSIVE DISORDER) 06/05/19 023 Inactive pregabalin 100 mg capsule RxNorm: 789226 1 Capsule(s) Oral QAM every morning 06/02/19 023 Inactive Banophen 50 mg capsule RxNorm: 5531281 Take 1 Capsule(s) Oral Q6H every 6 hours as needed 05/19/19 23 No Stop Date Active Novolog Flexpen U-100 Insulin aspart 100 unit/mL (3 mL) subcutaneous RxNorm: 0500212 Inject 10 Unit(s) Subcutaneous QHS every night at bedtime with nighttime snack 04/08/20 022 Inactive Novolog Flexpen U-100 Insulin aspart 100 unit/mL (3 mL) subcutaneous RxNorm: 4961115 Inject 42 Unit(s) Subcutaneous TID in addition to sliding scale 04/08/20 022 Inactive d/c 36u albuterol sulfate HFA 90 mcg/actuation aerosol inhaler RxNorm: 0870593 Take 2 Puff(s) Inhalation Q4H every four hours as needed as needed for SOB, cough, or wheezing 04/07/20 030 Active Banophen 50 mg capsule RxNorm: 6485527 Take 1 Capsule(s) Oral Q6H every 6 hours as needed 04/06/20 023 Inactive diphenhydramine 50 mg tablet RxNorm: 3063068 Take 1 Tablet(s) Oral Q6H every 6 hours as needed 04/06/20 22 022 Inactive diphenhydramine 50 mg tablet RxNorm: 4150404 1 Tablet(s) Oral Q6H every 6 hours as needed 04/06/20 22 022 Inactive Abilify 15 mg tablet RxNorm: 809348 /2 Tablet(s) Oral QD 03/10/20 22 023 Inactive Shingrix (PF) 50 mcg/0.5 mL intramuscular suspension, kit RxNorm: 1518342 Administer 1/2 Milliliter(s) Intramuscular QD one time shingrix step 2 ( step 1 given 11/04/21) WITH needle - Nursing please administer upon arrival and once administered post a bridge message with date of administration, payroll and benefits specialist, expiration date, and lot# so we can update [facility] 02/18/20 22 022 Inactive dispense with needle Shingrix (PF) 50 mcg/0.5 mL intramuscular suspension, kit RxNorm: 4519986 Administer 1/2 Milliliter(s) Intramuscular QD one time shingrix step 2 ( step 1 given 11/04/21) WITH needle - Nursing please administer upon arrival and once administered post a bridge message with date of administration, payroll and benefits specialist, expiration date, and lot# so we can update [facility] 02/18/20 22 022 Inactive dispense with needle polyethylene glycol 3350 17 gram/dose oral powder RxNorm: 466382 Take 17=1 capful Gram(s) Oral QD mix with 4-8oz of liquid 01/08/20 22 025 Inactive take this in addition to BID prn order Lyrica 100 mg capsule RxNorm: 611093 Take 1 Capsule(s) Oral QAM every morning 01/08/20 22 022 Inactive d/c 50mg dose acetaminophen 500 mg tablet RxNorm: 728836 Take 1 Tablet(s) Oral TID 01/08/20 22 022 Inactive d/c PRN order Lyrica 150 mg capsule RxNorm: 697784 Take 1 Capsule(s) Oral QHS every night at bedtime 01/08/20 22 023 Inactive d/c 100mg dose Abilify 5 mg tablet RxNorm: 343770 Take 1 Tablet(s) Oral QD take 1 tab po QD #30 refill 5 dx: MDD 12/12/19 22 022 Inactive Abilify 5 mg tablet RxNorm: 193949 Take 1 Tablet(s) Oral QD take 1 tab po QD #30 refill 5 dx: MDD 12/12/19 22 022 Inactive Novolog Flexpen U-100 Insulin aspart 100 unit/mL (3 mL) subcutaneous RxNorm: 0942803 Inject 42 Unit(s) Subcutaneous TID in addition to sliding scale 12/10/19 22 022 Inactive d/c 36u chlorthalidone 25 mg tablet RxNorm: 949254 Take 1 Tablet(s) Oral QAM every morning 12/10/19 22 023 Inactive pregabalin 50 mg capsule RxNorm: 108322 Take 1 Capsule(s) Oral QAM every morning 11/12/19 22 022 Inactive tetanus-diphtheria toxoids-Td 2 Lf unit-2 Lf unit/0.5 mL IM suspension RxNorm: 139 Take 0.5 Miscellaneous Intramuscular 11/12/19 22 022 Inactive need tdap - nursing to administer upon arrival pregabalin 50 mg capsule RxNorm: 318572 Take 1 Capsule(s) Oral QAM every morning 10/16/19 022 Inactive pregabalin 50 mg capsule RxNorm: 480068 Take 1 Capsule(s) Oral QAM every morning 10/16/19 22 022 Inactive pregabalin 50 mg capsule RxNorm: 384655 1 Capsule(s) Oral QAM every morning 10/15/19 22 022 Inactive Shingrix (PF) 50 mcg/0.5 mL intramuscular suspension, kit RxNorm: 4559069 Administer 1/2 Milliliter(s) Intramuscular one time Nursing please administer upon arrival and once administered post a bridge message with date of administration, payroll and benefits specialist, expiration date, and lot# so we can update [facility]. 10/09/19 22 022 Inactive shingrix step 1 Shingrix (PF) 50 mcg/0.5 mL intramuscular suspension, kit RxNorm: 5725061 Administer 1/2 Milliliter(s) Intramuscular one time Nursing please administer upon arrival and once administered post a bridge message with date of administration, payroll and benefits specialist, expiration date, and lot# so we [...] aspart 100 unit/mL (3 mL) subcutaneous RxNorm: 4888534 Inject 10 Unit(s) Subcutaneous QHS every night at bedtime with nighttime snack 10/08/19 22 Inactive Shingrix (PF) 50 mcg/0.5 mL intramuscular suspension, kit RxNorm: 2431374 ADMINISTER 2-DOSE SERIES PER CDC GUIDELINES 10/08/19 22 Active Shingrix (PF) 50 mcg/0.5 mL intramuscular suspension, kit RxNorm: 4401700 ADMINISTER 2-DOSE SERIES PER CDC GUIDELINES 10/08/19 22 Inactive Novolog Flexpen U-100 Insulin aspart 100 unit/mL (3 mL) subcutaneous RxNorm: 7231013 Inject 36 Unit(s) Subcutaneous TID in addition to sliding scale 10/08/19 22 Inactive cholecalciferol (vitamin D3) 1,250 mcg (50,000 unit) capsule RxNorm: 427690 Take 1 Capsule(s) Oral QW once a week 10/08/19 024 Inactive Novofine Autocover 30 gauge x 1/3 needle RxNorm: Use 1 Miscellaneous UD as directed Use 1 needle as directed to administer insulin 5 times a day Dx:E11.42. 10/03/19 022 Inactive ok to substitute with any covered alternative pen needle benzoyl peroxide 10 % topical cleanser RxNorm: 658210 Apply 1 Application Topical QD apply to face, wash rinse and dry once daily (may change to QOD if drying) 08/19/19 22 022 Inactive (%covered by insurance) #60ml refill 11 dx: acne benzoyl peroxide 10 % topical cleanser RxNorm: 768209 Apply 1 Application Topical QD apply to face, wash rinse and dry once daily (may change to QOD if drying) 08/19/19 22 022 Inactive (%covered by insurance) #60ml refill 11 dx: acne benzoyl peroxide 10 % topical cleanser RxNorm: 390522 Apply 1 Application Topical QD apply to face, wash rinse and dry once daily (may change to QOD if drying) 08/19/19 22 022 Inactive (%covered by insurance) #60ml refill 11 dx: acne Lyrica 50 mg capsule RxNorm: 248579 Take 1 Capsule(s) Oral QAM every morning Take 1 capsule by mouth once daily 08/19/19 22 022 Inactive benzoyl peroxide 10 % topical cleanser RxNorm: 849793 Apply 1 Application Topical QD apply to face, wash rinse and dry once daily (may change to QOD if drying) 08/19/19 22 022 Inactive (%covered by insurance) #60ml refill 11 dx: acne Lyrica 100 mg capsule RxNorm: 822296 Take 1 Capsule(s) Oral QHS every night at bedtime Take 1 capsule by mouth once daily at bedtime 08/19/19 22 022 Inactive Lyrica 100 mg capsule RxNorm: 884153 Take 1 Capsule(s) Oral QHS every night at bedtime Take 1 capsule by mouth once daily at bedtime 08/16/19 22 Inactive Lyrica 50 mg capsule RxNorm: 419432 Take 1 Capsule(s) Oral QAM every morning Take 1 capsule by mouth once daily 08/16/19 Inactive Levemir FlexTouch U-100 Insulin 100 unit/mL (3 mL) subcutaneous pen RxNorm: 482442 Inject 86 Unit(s) Subcutaneous BID 08/05/19 22 022 Inactive d/c 83units BID Lyrica 100 mg capsule RxNorm: 393667 Take 1 Capsule(s) Oral QHS every night at bedtime Take 1 capsule by mouth once daily at bedtime 07/14/19 22 022 Inactive Lyrica 50 mg capsule RxNorm: 105532 Take 1 Capsule(s) Oral QAM every morning Take 1 capsule by mouth once daily 07/14/19 22 02/28/2 022 Inactive Levemir FlexTouch U-100 Insulin 100 unit/mL (3 mL) subcutaneous pen RxNorm: 046248 Inject 83 Unit(s) Subcutaneous BID 07/08/19 022 [...] test strip hydralazine 50 mg tablet RxNorm: 364759 Take 1 Tablet(s) Oral QID 05/05/20 21 022 Inactive venlafaxine ER 225 mg tablet,extended release 24 hr RxNorm: 606615 Take 1 Tablet(s) Oral QD 05/05/20 21 021 Inactive venlafaxine ER 225 mg tablet,extended release 24 hr RxNorm: 308845 Take 1 Tablet(s) Oral QD 05/05/20 022 Inactive isosorbide mononitrate ER 30 mg tablet,extended release 24 hr RxNorm: 090699 Take 1 Tablet(s) Oral QD 05/05/20 024 Inactive hydralazine 50 mg tablet RxNorm: 148317 Take 1 Tablet(s) Oral QID 05/05/20 21 021 Inactive aspirin 81 mg tablet,delayed release RxNorm: 515982 Take 1 Tablet(s) Oral QD 03/31/20 Inactive Vitamin D2 1,250 mcg (50,000 unit) capsule RxNorm: 5146676 Take 1 Capsule(s) Oral QW once a week x 12 weeks 03/31/20 022 Inactive Vitamin D2 1,250 mcg (50,000 unit) capsule RxNorm: 5350409 Take 1 Capsule(s) Oral QW once a week 03/31/20 021 Inactive Zetia 10 mg tablet RxNorm: 851078 Take 1 Tablet(s) Oral QD 03/31/20 024 Inactive Zetia 10 mg tablet RxNorm: 778585 Take 1 Tablet(s) Oral QD 03/31/20 021 Inactive hydralazine 25 mg tablet RxNorm: 773075 Take 1 Tablet(s) Oral QID 03/31/20 21 021 Inactive hydralazine 25 mg tablet RxNorm: 812400 Take 1 Tablet(s) Oral QID 03/31/20 021 Inactive hydralazine 10 mg tablet RxNorm: 919668 Take 1 Tablet(s) Oral QID 03/03/20 021 Inactive cephalexin 500 mg tablet RxNorm: 493489 Take 1 Tablet(s) Oral QID 02/27/20 021 Inactive cephalexin 500 mg tablet RxNorm: 232540 Take 1 Tablet(s) Oral QID 02/27/20 021 Inactive lisinopril 40 mg tablet RxNorm: 985734 Take 1 Tablet(s) Oral QD 02/11/20 023 Inactive Eliquis 5 mg tablet RxNorm: 8720170 Take 1 Tablet(s) Oral BID 01/05/20 21 025 Inactive Eliquis 5 mg tablet RxNorm: 7204636 Take 2 Tablet(s) Oral QD 01/01/20 21 021 Inactive Lyrica 50 mg capsule RxNorm: 758046 Take 1 Capsule(s) Oral QAM every morning 12/24/19 21 021 Inactive Lyrica 100 mg capsule RxNorm: 142338 Take 1 Capsule(s) Oral QHS every night at bedtime 12/24/19 021 Inactive clotrimazole 1 % topical cream RxNorm: 930799 Apply to right foot and toes Topical BID 12/04/19 21 023 Inactive metoprolol succinate ER 200 mg tablet,extended release 24 hr RxNorm: 202581 Take 1 Tablet(s) Oral QD 12/04/19 21 023 Inactive ciprofloxacin 500 mg tablet RxNorm: 098043 Take 1 Tablet(s) Oral QD 11/30/19 21 021 Inactive DX ofloxacin otic drops Accu-Chek Guide test strips RxNorm: USE 1 TO CHECK GLUCOSE 4 TIMES DAILY AND NEEDED 11/15/19 21 023 Inactive Blood Glucose Test strips RxNorm: Use 1 Test Strip QID at PRN 11/05/19 21 023 Inactive E11.42 lisinopril 30 mg tablet RxNorm: 843004 Take 1 Tablet(s) Oral QD 10/30/19 021 Inactive lisinopril 20 mg tablet RxNorm: 336085 Take 1 Tablet(s) Oral QD 10/23/19 21 021 Inactive lisinopril 20 mg tablet RxNorm: 005433 Take 1 Tablet(s) Oral QD 10/23/19 21 021 Inactive lisinopril 10 mg tablet RxNorm: 078876 Take 1 Tablet(s) Oral QD 10/02/19 21 021 Inactive icosapent ethyl 1 gram capsule RxNorm: 0525822 Take 2 Capsule(s) (2 gm) Oral BID with meals 09/12/19 21 024 Inactive Okay to dispense one 2gm tab if you have that available. icosapent ethyl 1 gram capsule RxNorm: 6751336 Take 2 Capsule(s) Oral BID 09/12/19 21 021 Inactive Okay to dispense one 2gm tab if you have that available. amlodipine 10 mg tablet RxNorm: 412441 Take 1 Tablet(s) Oral QD 09/04/19 21 021 Inactive aspirin 81 mg tablet,delayed release RxNorm: 206178 Take 1 Tablet(s) Oral QD 09/04/19 21 021 Inactive Levemir FlexTouch U-100 Insulin 100 unit/mL (3 mL) subcutaneous pen RxNorm: 999644 Inject 150 Unit(s) Subcutaneous BID 09/04/19 21 022 Inactive venlafaxine ER 150 mg tablet,extended release 24 hr RxNorm: 098893 Take 1 Tablet(s) Oral QD 09/04/19 21 021 Inactive clotrimazole-betame thasone 1 %-0.05 % topical cream RxNorm: 363114 Apply to rash on red area on left abdomen/chest Topical BID 08/10/19 21 021 Inactive amlodipine 5 mg tablet RxNorm: 675615 Take 1 Tablet(s) Oral QD 07/31/19 21 021 Inactive cephalexin 500 mg tablet RxNorm: 251275 Take 1 Tablet(s) Oral BID BID - Twice Daily 07/31/19 21 021 Inactive Start 08/01/20 pantoprazole 40 mg tablet,delayed release RxNorm: 867192 Take 1 Tablet(s) Oral QAM every morning 07/08/19 21 025 Inactive senna 8.6 mg tablet RxNorm: 654403 Take 1 Tablet(s) Oral QD 07/08/19 21 025 Inactive carbamazepine 200 mg tablet RxNorm: 262740 Take 1 Tablet(s) Oral BID 07/08/19 21 025 Inactive clopidogrel 75 mg tablet RxNorm: 415135 Take 1 Tablet(s) Oral QD 07/08/19 021 Inactive Blood Glucose Test strips RxNorm: Use 1 Test Strip QID at PRN 07/08/19 21 021 Inactive E11.42 Novolog Flexpen U-100 Insulin aspart 100 unit/mL (3 mL) subcutaneous RxNorm: 9695658 Administer per sliding scale Milliliter(s) Subcutaneous TID 151-200: 10 u; 201-250: 20 u; 251-300: 30 u; 301-350: 40 u; 351-400: 50 u. 07/08/19 21 022 Inactive lisinopril 5 mg tablet RxNorm: 563092 Take 1 Tablet(s) Oral QD 07/08/19 021 Inactive Novolog Flexpen U-100 Insulin aspart 100 unit/mL (3 mL) subcutaneous RxNorm: 9508974 Inject 85 Unit(s) Subcutaneous TID 07/08/19 022 Inactive pravastatin 80 mg tablet RxNorm: 354961 Take 1 Tablet(s) Oral QHS every night at bedtime 07/08/19 023 Inactive clotrimazole 1 % topical cream RxNorm: 169975 Apply to bilateral groin areas Topical BID 07/08/19 022 Inactive metoprolol succinate ER 200 mg tablet,extended release 24 hr RxNorm: 904163 Take 1 Tablet(s) Oral QD 07/08/19 21 021 Inactive Vitamin D3 25 mcg (1,000 unit) tablet RxNorm: 315577 Take 1 Tablet(s) Oral QD 07/08/19 021 Inactive isosorbide dinitrate 30 mg tablet RxNorm: 568023 Take 1 Tablet(s) Oral QD 07/08/19 21 021 Inactive Levemir FlexTouch U-100 Insulin 100 unit/mL (3 mL) subcutaneous pen RxNorm: 474804 Inject 140 Unit(s) Subcutaneous BID 07/08/19 21 021 Inactive torsemide 20 mg tablet RxNorm: 810475 Take 1 Tablet(s) Oral QD 07/08/19 21 023 Inactive venlafaxine 75 mg tablet RxNorm: 878328 Take 1 Tablet(s) Oral QD 07/08/19 21 021 Inactive acetaminophen 500 mg tablet RxNorm: 209871 Take 1 Tablet(s) Oral TID as needed for headache 06/18/19 21 021 Inactive acetaminophen 500 mg tablet RxNorm: 609310 Take 1 Tablet(s) Oral TID as needed for headache 06/18/19 21 021 Inactive Lyrica 100 mg capsule RxNorm: 361472 Take 1 Capsule(s) Oral QHS every night at bedtime 06/11/19 21 021 Inactive Lyrica 50 mg capsule RxNorm: 043933 Take 1 Capsule(s) Oral QAM every morning 06/10/19 21 021 Inactive hydrocortisone 2.5 % topical cream RxNorm: 580082 Apply to bilateral groin creases Topical BID 05/15/20 20 021 Inactive clotrimazole 1 % topical cream RxNorm: 235462 Apply to bilateral groin areas Topical BID 05/15/20 20 021 Inactive Lyrica 50 mg capsule RxNorm: 651928 Take 1 Capsule(s) Oral QAM every morning 05/14/20 20 020 Inactive Lyrica 100 mg capsule RxNorm: 993336 Take 1 Capsule(s) Oral QHS every night [...] Inactive Nystop 100,000 unit/gram topical powder RxNorm: 801409 Apply to abd folds, under breasts and L side of groin Topical BID x 14 days, then BID PRN 04/08/20 20 Inactive dx: yeast dermatitis Lyrica 100 mg capsule RxNorm: 274056 Take 1 Capsule(s) Oral QHS every night at bedtime 03/13/20 20 Inactive Lyrica 50 mg capsule RxNorm: 409668 Take 1 Capsule(s) Oral QAM every morning 03/13/20 20 Inactive ketoconazole 2 % shampoo RxNorm: 313333 Apply Topical two times a week with showers 03/11/20 20 Inactive cholecalciferol (vitamin D3) 50 mcg (2,000 unit) tablet RxNorm: 490929 Take 1 Tablet(s) Oral QD 03/11/20 20 021 Inactive Zetia 10 mg tablet RxNorm: 028435 Take 1 Tablet(s) Oral QD 03/07/20 20 021 Inactive Zetia 10 mg tablet RxNorm: 650788 Take 1 Tablet(s) Oral QD 03/07/20 20 Inactive Lyrica 50 mg capsule RxNorm: 184823 Take 1 Capsule(s) Oral QAM every morning 02/15/20 20 Inactive Lyrica 100 mg capsule RxNorm: 287818 Take 1 Capsule(s) Oral QHS every night at bedtime 02/15/20 20 Inactive Lyrica 100 mg capsule RxNorm: 494609 Take 1 Capsule(s) Oral QHS every night at bedtime 02/15/20 20 Inactive Lyrica 50 mg capsule RxNorm: 851065 Take 1 Capsule(s) Oral QAM every morning 02/15/20 20 Inactive metoprolol succinate ER 200 mg tablet,extended release 24 hr RxNorm: 639148 Take 1 Tablet(s) Oral QD 08/12/19 025 Inactive loperamide 2 mg capsule RxNorm: 975326 Take 1 Capsule(s) Oral QID as needed 09/06/19 25 025 Inactive hydralazine 50 mg tablet RxNorm: 867324 Take 1 Tablet(s) Oral QID 08/12/19 23 025 Inactive Soft Touch Lancets RxNorm: miscellaneous 03/04/20 24 025 Inactive venlafaxine ER 75 mg capsule,extended release 24 hr RxNorm: 448943 Take 3 Capsule(s) Oral QD 06/12/19 023 Inactive polyethylene glycol 3350 17 gram/dose oral powder RxNorm: 066878 Take 17=1 capful Gram(s) Oral BID as needed mix with 4-8oz of liquid 06/12/19 024 Inactive icosapent ethyl 1 gram capsule RxNorm: 1575572 Take 2 Capsule(s) (2 gm) Oral BID with meals 10/07/19 23 023 Inactive Okay to dispense one 2gm tab if you have that available. Levemir FlexTouch U-100 Insulin 100 unit/mL (3 mL) subcutaneous pen RxNorm: 546226 Inject 80 Unit(s) Subcutaneous BID 07/14/19 23 023 Inactive Novolog Flexpen U-100 Insulin aspart 100 unit/mL (3 mL) subcutaneous RxNorm: 6918039 Insert 30 Unit(s) Subcutaneous TID with meals [...] Activity Notes Codes Status Date Referral: [facility]Imaging W[facility]el: [address] [id number] [place] Referral Appointment Scheduled 10/20/2024 Referral: [facility]/Endocrinology WPtel: [address] [facility] [address] [id number] [place] Referral No Records Received 07/10/2024 Referral: [facility] WPtel: [address] , [address] [id number] [place] Referral Records Received 09/21/2022 Referral: [facility] WPtel: [address] [facility] [address] [id number] [place] Referral Completed 05/28/2021 Referral: General Cardiology Referral Complet ed 01/03/2021 Referral: General Psychologist Referral Close d Referral: General Psychiatrist Referral Patient/Family Scheduling Appointment Referral: General Physical Medicine Referral Facility Scheduling Appointment Instructions Comment Date Leonid is a Male being seen living at [facility]. Initial [facility] visit 01/2020. PMHx including DMII, CAD w/ 5 stents, Depression, Seizure Disorder and CKD stage 3. He moved into [facility] in 12/2019 but after a hospitalization 05/2021 he moved to the [facility] to have closer nursing attention. Sister Jyotsna involved in his care cell# [phone] Guardian: Giulia (tapan met in person 09/01/21), [...] appointment 05.26.2024 with Jessa Webster MD at [facility]. Start Pioglitazone 15 mg QD. Stop Basaglar insulin. Increase Ozempic 2 mg once wkly. Continue Humalin R U-500 100 units with meals TID. FOLLOW UP 2 MONTHS. If BG >400 add 50 units to next scheduled dose of Humalin R U 500 insulin 06/12/2024
--- OUTSIDE RECORDS SUMMARY | 2024-10-19 19:31 | XMS_ITS | CCD ---
Author Organization Unknown Care Team Providers Care Fire And Safety Helper Name Role Phone Harrison Durham Primary Care Provider Leona vailable Unavailable Chronic Care Management Unavaila ble Summary Purpose DataExchange Insurance Providers Payer name Policy type / Coverage type Covered libertarian ID Effective Begin Date Effective End Date [place] [id number] Unknown Unknown [place] [id number] Unknown Unknown Family history Sister Brittany Suggs Diagnosis Age At Onset No Family Disease Entered N/A Runs in the family Diagnosis Age At Onset No Known Diseases N/A Sister Blanka Mcduffie Diagnosis Age At Onset No Family Disease Entered N/A Social History Social History Element Codes Description Effec tive Dates Tobacco history SNOMED CT: 670358401 Never smoker 01/16 Sexually Active? Unknown No [...] Snf 09/03/[address]: 111901978 No Alcohol Consum ption 09/02/2020 Allergies, Adverse Reactions, Alerts Substance Reaction Codes Entered Date Inactivated Date Status * NO KNOWN FOOD ALLERGIES Unknown 07/13/2023 No Inactive Date Active LISINOPRIL RxNorm: 93289 02/12/2020 No Inactive Da te Active Metformin [...] E78. 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: Z79.4 02/10 [...] Instructions nystatin 100,000 unit/gram topical powder RxNorm: 167229 Apply 1 Application Topical BID as needed abdominal/breast /groin folds 04/11/20 24 024 Inactive chlorthalidone 25 mg tablet RxNorm: 703918 Take 1 Tablet(s) Oral QAM every morning 04/06/20 No Stop Date Active pregabalin 150 mg capsule RxNorm: 741389 Take 1 Capsule(s) Oral QHS every night at bedtime 03/31/20 24 024 Inactive Vascepa 1 gram capsule RxNorm: 9804348 Take 2 Capsule(s) Oral BID 03/30/20 24 025 Active rosuvastatin 40 mg tablet RxNorm: 602249 1 TAB ORALLY EVERY EVENING (DX:CORONARY ARTERY DISEASE) 03/28/20 24 No Stop Date Active venlafaxine ER 75 mg capsule,extended release 24 hr RxNorm: 454879 3 CAPS (225MG) ORALLY DAILY (DX: MOOD DISORDER) 11/12/20 24 No Stop Date Active pregabalin 100 mg capsule RxNorm: 482848 Take 1 Capsule(s) Oral QAM every morning 03/20/20 Inactive cholecalciferol (vitamin D3) 1,250 mcg (50,000 unit) capsule RxNorm: 449228 Take 1 Capsule(s) Oral QW once a [...] Insulin 100 unit/mL (3 mL) subcutaneous RxNorm: 2225221 Inject 40 Unit(s) Subcutaneous BID 03/07/20 Inactive Please dispense one month supply. Humulin R U-500 (Concentrated) Insulin 500 unit/mL subcutaneous soln RxNorm: 196576 Inject 100 Unit(s) Subcutaneous AC before meals [...] PRN) to be use with new Accu [place] meter 03/04/20 Inactive ok to substitute with any covered alternative test strip FreeStyle Chema 2 Sensor kit RxNorm: Use UD as directed 03/02/20 025 Inactive FreeStyle Chema 2 Sensor kit RxNorm: Use UD as directed 03/02/20 Inactive Pen Needle 30 gauge x 516 RxNorm: Pen(s) Use 1 needle as directed TID 03/02/20 24 Inactive nystatin 100,000 unit/gram topical powder RxNorm: 801500 Apply 1 Application Topical BID as needed [...] (Concentrated) Insulin 500 unit/mL subcutaneous soln RxNorm: 616071 Inject 100 Unit(s) Subcutaneous TID 02/17/20 24 024 Inactive Humulin R U-500 (Concentrated) Insulin 500 unit/mL subcutaneous soln RxNorm: 136749 Inject 100 Unit(s) Subcutaneous TID 02/10/20 24 024 Inactive Basaglar KwikPen U-100 Insulin 100 unit/mL (3 mL) subcutaneous RxNorm: 5146704 Inject 30 Unit(s) Subcutaneous BID 02/10/20 24 024 Inactive Please dispense one month supply. pregabalin 100 mg capsule RxNorm: 226610 Take 1 Capsule(s) Oral QAM every morning 02/07/20 24 024 Inactive isosorbide mononitrate ER 60 mg tablet,extended release 24 hr RxNorm: 672085 Take 1 Tablet(s) Oral QD 02/01/20 24 025 Active aripiprazole 15 mg tablet RxNorm: 315241 Take 1/2 Tablet(s) Oral QD 02/01/20 24 025 Active torsemide 20 mg tablet RxNorm: 258591 1 TAB ORALLY DAILY (DX: EDEMA) 01/27/20 24 No Stop Date Active potassium chloride ER 20 mEq tablet,extended release(part/cryst) RxNorm: 2466731 2 TABS (40MEQ) ORALLY TWICE DAILY (DX: HYPOKALEMIA) 01/27/20 24 025 Inactive cephalexin 500 mg capsule RxNorm: 923784 Take 1 Capsule(s) Oral QID 12/17/19 24 024 Inactive cephalexin 500 mg capsule RxNorm: 301813 Take 1 Capsule(s) Oral QID 12/17/19 24 024 Inactive acetaminophen 500 mg tablet RxNorm: 227277 (MAX APAP:4GM/24HR) Take 1 Tablet(s) Oral TID as needed for pain 12/10/19 24 024 Inactive torsemide 20 mg tablet RxNorm: 374901 Take 1 Tablet(s) Oral QD 10/26/19 24 Inactive potassium chloride ER 20 mEq tablet,extended release RxNorm: 19800522 Take 2 Tablet(s) Oral BID 10/26/19 24 025 Inactive torsemide 20 mg tablet RxNorm: 793325 Take 1 Tablet(s) Oral QD 10/26/19 24 024 Inactive potassium chloride ER 20 mEq tablet,extended release RxNorm: 874845 Take 2 Tablet(s) Oral BID 10/26/19 24 024 Inactive Artificial Tears (PF) 0.1 %-0.3 % drops in a dropperette RxNorm: 626636 Apply 1-2 Drop(s) Both eyes BID as needed 09/28/19 24 025 Inactive erythromycin 5 mg/gram (0.5 %) eye ointment RxNorm: 744963 Apply 1 Application Both eyes QHS every night at bedtime Instill ~1 cm ribbon into affected eye 09/28/19 24 024 Inactive Artificial Tears (PF) 0.1 %-0.3 % drops in a dropperette RxNorm: 228240 Apply 1-2 Drop(s) Both eyes BID as needed 09/28/19 Inactive erythromycin 5 mg/gram (0.5 %) eye ointment RxNorm: 003106 Apply 1 Application Both eyes QHS every night at bedtime Instill ~1 cm ribbon into affected eye 09/28/19 Inactive acetaminophen 500 mg tablet RxNorm: 043432 (MAX APAP:4GM/24HR) Take 1 Tablet(s) Oral TID as needed for pain 09/24/19 Inactive carvedilol 25 mg tablet RxNorm: 913756 Take 1 Tablet(s) Oral QD 09/08/19 24 No Stop Date Active pregabalin 100 mg capsule RxNorm: 184353 Take 1 Capsule(s) Oral QAM every morning 09/07/19 24 024 Inactive ezetimibe 10 mg tablet RxNorm: 604517 Take 1 Tablet(s) Oral QD 07/13/19 24 025 Inactive bisacodyl 10 mg rectal suppository RxNorm: 075974 Insert 1 Suppository Rectal QD as needed 07/13/19 No Stop Date Active polyethylene glycol 3350 17 gram/dose oral powder RxNorm: 792211 Take 17 Gram(s) Oral BID as needed mix in 4-8ox water 07/13/19 24 Inactive ketoconazole 2 % shampoo RxNorm: 582435 Apply 1 Application Topical UD as directed 07/13/19 24 No Stop Date Active Ozempic 1 mg/dose (4 mg/3 mL) subcutaneous pen injector RxNorm: 5017784 Inject 1 Milligram(s) Subcutaneous QW once a week 07/13/19 24 No Stop Date Active Guaifenesin AC 10 mg-100 mg/5 mL oral liquid RxNorm: 844201 Take 10 Milliliter(s) Oral Q4H every four hours as needed 07/13/19 24 No Stop Date Active ammonium lactate 12 % topical cream RxNorm: 294173 Apply 1 Application Topical BID 07/13/19 24 025 Inactive hydrocortisone 2.5 % topical cream RxNorm: 931773 Apply 1 Application Topical BID as needed 07/13/19 No Stop Date Active rosuvastatin 20 mg sprinkle capsule RxNorm: 3471914 Take 1 Capsule(s) Oral QD 07/13/19 24 025 Inactive rosuvastatin 40 mg tablet RxNorm: 825351 Take 1 Tablet(s) Oral QPM every evening 07/13/19 024 Inactive aripiprazole 15 mg tablet RxNorm: 805320 Take 1/2 Tablet(s) Oral QD 07/13/19 24 024 Inactive isosorbide mononitrate ER 60 mg tablet,extended release 24 hr RxNorm: 580126 Take 1 Tablet(s) Oral QD 07/13/19 24 024 Inactive Vascepa 1 gram capsule RxNorm: 0232825 Take 2 Capsule(s) Oral BID 07/13/19 24 024 Inactive venlafaxine ER 75 mg capsule,extended release 24 hr RxNorm: 186247 Take 3 Capsule(s) Oral QD 07/13/19 24 024 Inactive Basaglar KwikPen U-100 Insulin 100 unit/mL (3 mL) subcutaneous RxNorm: 8502090 Inject 30U SubQ twice daily 07/07/19 24 024 Inactive Please dispense one month supply. Basaglar KwikPen U-100 Insulin 100 unit/mL (3 mL) subcutaneous RxNorm: 1789018 Inject 30U SubQ twice daily 07/07/19 24 024 Inactive Please dispense one month supply. pregabalin 150 mg capsule RxNorm: 933382 Take 1 Capsule(s) Oral QHS every night at bedtime 07/05/19 24 024 Inactive pregabalin 150 mg capsule RxNorm: 853244 Take 1 Capsule(s) Oral QHS every night at bedtime 07/05/19 24 024 Inactive polyethylene glycol 3350 17 gram/dose oral powder RxNorm: 165519 Take 1 Packet Oral QD as needed (1 packet = 17g) mix with 4-8oz of liquid 06/15/19 24 024 Inactive bisacodyl 10 mg rectal suppository RxNorm: 978057 Insert one suppository per rectum once daily as needed for constipation 06/15/19 24 024 Inactive bisacodyl 10 mg rectal suppository RxNorm: 711116 Insert one suppository per rectum once daily as needed for constipation 06/15/19 024 Inactive pregabalin 100 mg capsule RxNorm: 712230 Take 1 Capsule(s) Oral QAM every morning 04/27/20 024 Inactive Levemir FlexPen 100 unit/mL (3 mL) solution subcutaneous insulin pen RxNorm: 742899 Inject 30 Unit(s) Subcutaneous BID 04/27/20 024 Inactive rosuvastatin 40 mg tablet RxNorm: 737628 Take 1 Tablet(s) Oral QPM every evening 04/16/20 024 Inactive D/C rosuvastatin 20mg venlafaxine ER 75 mg capsule,extended release 24 hr RxNorm: 232337 Take 3 Capsule(s) Oral QD 04/14/20 023 Inactive pregabalin 100 mg capsule RxNorm: 828142 Take 1 Capsule(s) Oral QAM every morning [...] strip clotrimazole 1 % topical cream RxNorm: 716322 Take apply topically to abdominal folds twice daily for 14 days 03/12/20 024 Inactive Ozempic 1 mg/dose (4 mg/3 mL) subcutaneous pen injector RxNorm: 3295465 Inject 1 Milligram(s) Subcutaneous QW once a week 03/11/20 023 Inactive rosuvastatin 20 mg tablet RxNorm: 907277 Take 1 Tablet(s) Oral QD 02/26/20 23 023 Inactive d/c pravastatin 80mg Ozempic 1 mg/dose (4 mg/3 mL) subcutaneous pen injector RxNorm: 5469602 Inject 1 Milligram(s) Subcutaneous QW once a week 02/20/20 23 023 Inactive pregabalin 150 mg capsule RxNorm: 055046 Take 1 Capsule(s) Oral HS at bed time 02/19/20 23 023 Inactive pregabalin 100 mg capsule RxNorm: 136427 Take 1 Capsule(s) Oral QAM every morning 02/18/20 23 023 Inactive venlafaxine ER 75 mg capsule,extended release 24 hr RxNorm: 676733 Take 3 Capsule(s) Oral QD 02/04/20 23 023 Inactive FreeStyle Chema 2 Sensor kit RxNorm: use as directed 02/04/20 23 023 Inactive FreeStyle Chema 2 Sensor kit RxNorm: use as directed 02/04/20 23 024 Inactive fluconazole 150 mg tablet RxNorm: 593444 Take 1 Tablet(s) Oral on day 3 and on day 6 02/03/20 024 Inactive venlafaxine ER 150 mg capsule,extended release 24 hr RxNorm: 335583 Take 1 Capsule(s) Oral QD 02/03/20 023 Inactive chlorthalidone 25 mg tablet RxNorm: 481752 Take 1 Tablet(s) Oral QAM every morning 02/03/20 23 024 Inactive acetaminophen 500 mg tablet RxNorm: 909843 1 TABLET ORALLY 3 TIMES DAILY (MAX APAP:4GM/24HR) 12/15/19 23 023 Inactive clotrimazole 1 % topical cream RxNorm: 067080 apply 1g topically to top of feet and in between toes BID 12/09/19 23 025 Inactive potassium chloride ER 20 mEq tablet,extended release RxNorm: 725688 Take 1 Tablet(s) Oral BID 12/09/19 23 024 Inactive d/c 20mEq once daily (sent from hospital) nystatin 100,000 unit/gram topical powder RxNorm: 626563 APPLY TO AFFECTED AREAS TOPICALLY 2 TIMES DAILY 11/21/19 23 023 Inactive Nystop 100,000 unit/gram topical powder RxNorm: 442022 Apply to abd folds, under breasts and L side of groin Topical BID x 14 days, then BID PRN 11/20/19 023 Inactive dx: yeast dermatitis [place] Ultra Strength 4 %-30 %-10 % topical cream RxNorm: 768641 Apply 1 Gram(s) Topical QID PRN to feet and legs for neuropathic pain 11/11/19 024 Inactive clotrimazole 1 % topical cream RxNorm: 612428 Apply 1/2 Gram(s) Topical BID Apply to affected areas of groin, periarea, and abdominal topically 2 times daily 11/10/19 023 Inactive hydrocortisone 2.5 % topical cream RxNorm: 817005 Apply 1/2 Gram(s) Topical BID as needed 11/10/19 23 024 Inactive Levemir FlexPen 100 unit/mL (3 mL) solution subcutaneous insulin pen RxNorm: 806942 Inject 30 Unit(s) Subcutaneous BID 10/07/19 023 Inactive Humulin R U-500 (Concentrated) Insulin 500 unit/mL subcutaneous soln RxNorm: 385904 Inject 100 Unit(s) Subcutaneous TID 10/07/19 024 Inactive Ozempic 0.25 mg or 0.5 mg (2 mg/3 mL) subcutaneous pen injector RxNorm: 0446842 Inject 1/2 Milligram(s) Subcutaneous QW once a week 10/07/19 23 024 Inactive aripiprazole 15 mg tablet RxNorm: 210039 1/2 TAB (7.5MG) ORALLY DAILY (DX:MAJOR DEPRESSIVE DISORDER) 09/23/19 23 023 Inactive Accu-Chek Guide test strips RxNorm: Use 1 Test Strip QID 09/15/19 23 023 Inactive ok to substitute with any covered alternative test strip Lancets,Thin 28 gauge RxNorm: Use 1 as directed QID 09/15/19 23 023 Inactive torsemide 20 mg tablet RxNorm: 923423 Take 1 Tablet(s) Oral BID 09/09/19 23 024 Inactive d/c once daily dosing carvedilol 25 mg tablet RxNorm: 077949 Take 1 Tablet(s) Oral QD 08/25/19 23 024 Inactive pregabalin 150 mg capsule RxNorm: 799666 1 Capsule(s) Oral HS at bed time 08/18/19 23 023 Inactive pregabalin 100 mg capsule RxNorm: 222898 1 Capsule(s) Oral QAM every morning 08/18/19 23 023 Inactive carvedilol 25 mg tablet RxNorm: 783553 1 Tablet(s) Oral QD 07/28/19 23 023 Inactive lisinopril 20 mg tablet RxNorm: 039339 Give 1 Tablet(s) Oral QD 07/28/19 23 023 Inactive Lyrica 150 mg capsule RxNorm: 425029 Take 1 Capsule(s) Oral QHS every night at bedtime 07/19/19 23 023 Inactive d/c 100mg dose Diflucan 150 mg tablet RxNorm: 906868 Take 1 Tablet(s) Oral QD repeat on day 3 and 6 07/19/19 23 023 Inactive pregabalin 100 mg capsule RxNorm: 603160 Take 1 Capsule(s) Oral QAM every morning 07/19/19 23 023 Inactive gatifloxacin 0.5 % eye drops RxNorm: 580575 Instill 1 Drop(s) as directed TID Instill 1 drop in to affected eye(s) starting 1 day prior to surgery and continue until gone (do not exceed 4 weeks). 07/13/19 23 023 Inactive carvedilol 25 mg tablet RxNorm: 314488 2 Tablet(s) Oral BID 07/13/19 23 023 Inactive Humulin R Regular U-100 Insulin 100 unit/mL injection solution RxNorm: 100973 85 Unit(s) Injection TID 07/13/19 23 023 Inactive ketorolac 0.5 % eye drops RxNorm: 537902 Instill 1 Drop(s) as directed QID Instill 1 drop into affected eye(s) 4 times daily starting 1 day prior to surgery and continue until gone (do not exceed 4 weeks). 07/13/19 23 023 Inactive Diflucan 150 mg tablet RxNorm: 628975 Take 1 Tablet(s) Oral QD repeat on day 3 and 6 06/30/19 23 023 Inactive Accu-Chek Guide test strips RxNorm: Use 1 Test Strip QID Use 1 test strip to monitor blood glucose 4 times daily and as needed. Dx:E11.42. 06/23/19 023 Inactive ok to substitute with any covered alternative test strip dextromethorphan-gu aifenesin 10 mg-100 mg/5 mL oral liquid RxNorm: 976758 Take 10 Milliliter(s) Oral every 4 hours as needed for cough 06/19/19 023 Inactive dextromethorphan-gu aifenesin 10 mg-100 mg/5 mL oral liquid RxNorm: 809387 Take 10 Milliliter(s) Oral every 4 hours as needed for cough 06/19/19 023 Inactive Lyrica 150 mg capsule RxNorm: 121998 Take 1 Capsule(s) Oral QHS every night at bedtime 06/18/19 023 Inactive d/c 100mg dose aripiprazole 15 mg tablet RxNorm: 878983 1/2 TAB (7.5MG) ORALLY DAILY (DX:MAJOR DEPRESSIVE DISORDER) 06/05/19 23 023 Inactive pregabalin 100 mg capsule RxNorm: 653770 1 Capsule(s) Oral QAM every morning 06/02/19 23 023 Inactive Banophen 50 mg capsule RxNorm: 6185601 Take 1 Capsule(s) Oral Q6H every 6 hours as needed 05/19/19 23 No Stop Date Active Novolog Flexpen U-100 Insulin aspart 100 unit/mL (3 mL) subcutaneous RxNorm: 8335767 Inject 10 Unit(s) Subcutaneous QHS every night at bedtime with nighttime snack 04/08/20 22 022 Inactive Novolog Flexpen U-100 Insulin aspart 100 unit/mL (3 mL) subcutaneous RxNorm: 0974425 Inject 42 Unit(s) Subcutaneous TID in addition to sliding scale 04/08/20 022 Inactive d/c 36u albuterol sulfate HFA 90 mcg/actuation aerosol inhaler RxNorm: 7353874 Take 2 Puff(s) Inhalation Q4H every four hours as needed as needed for SOB, cough, or wheezing 04/07/20 030 Active Banophen 50 mg capsule RxNorm: 9866384 Take 1 Capsule(s) Oral Q6H every 6 hours as needed 04/06/20 023 Inactive diphenhydramine 50 mg tablet RxNorm: 5448583 Take 1 Tablet(s) Oral Q6H every 6 hours as needed 04/06/20 022 Inactive diphenhydramine 50 mg tablet RxNorm: 2477073 1 Tablet(s) Oral Q6H every 6 hours as needed 04/06/20 022 Inactive Abilify 15 mg tablet RxNorm: 983389 1/2 Tablet(s) Oral QD 03/10/20 023 Inactive Shingrix (PF) 50 mcg/0.5 mL intramuscular suspension, kit RxNorm: 6684454 Administer 1/2 Milliliter(s) Intramuscular QD one time shingrix step 2 ( step 1 given 11/04/21) WITH needle - Nursing please administer upon arrival and once administered post a bridge message with date of administration, specimen preparation assistant, expiration date, and lot# so we can update [facility] 02/18/20 22 022 Inactive dispense with needle Shingrix (PF) 50 mcg/0.5 mL intramuscular suspension, kit RxNorm: 4816672 Administer 1/2 Milliliter(s) Intramuscular QD one time shingrix step 2 ( step 1 given 11/04/21) WITH needle - Nursing please administer upon arrival and once administered post a bridge message with date of administration, specimen preparation assistant, expiration date, and lot# so we can update [facility] 02/18/20 22 022 Inactive dispense with needle polyethylene glycol 3350 17 gram/dose oral powder RxNorm: 744645 Take 17=1 capful Gram(s) Oral QD mix with 4-8oz of liquid 01/08/2024/2 025 Inactive take this in addition to BID prn order Lyrica 100 mg capsule RxNorm: 488526 Take 1 Capsule(s) Oral QAM every morning 01/08/20 22 022 Inactive d/c 50mg dose acetaminophen 500 mg tablet RxNorm: 048085 Take 1 Tablet(s) Oral TID 01/08/20 22 022 Inactive d/c PRN order Lyrica 150 mg capsule RxNorm: 737459 Take 1 Capsule(s) Oral QHS every night at bedtime 01/08/20 22 023 Inactive d/c 100mg dose Abilify 5 mg tablet RxNorm: 593237 Take 1 Tablet(s) Oral QD take 1 tab po QD #30 refill 5 dx: MDD 12/12/19 22 022 Inactive Abilify 5 mg tablet RxNorm: 945519 Take 1 Tablet(s) Oral QD take 1 tab po QD #30 refill 5 dx: MDD 12/12/19 22 022 Inactive Novolog Flexpen U-100 Insulin aspart 100 unit/mL (3 mL) subcutaneous RxNorm: 3109199 Inject 42 Unit(s) Subcutaneous TID in addition to sliding scale 12/10/19 22 022 Inactive d/c 36u chlorthalidone 25 mg tablet RxNorm: 490278 Take 1 Tablet(s) Oral QAM every morning 12/10/19 22 023 Inactive pregabalin 50 mg capsule RxNorm: 912818 Take 1 Capsule(s) Oral QAM every morning 11/12/19 22 022 Inactive tetanus-diphtheria toxoids-Td 2 Lf unit-2 Lf unit/0.5 mL IM suspension RxNorm: 139 Take 0.5 Miscellaneous Intramuscular 11/12/19 22 022 Inactive need tdap - nursing to administer upon arrival pregabalin 50 mg capsule RxNorm: 482691 Take 1 Capsule(s) Oral QAM every morning 10/16/19 22 022 Inactive pregabalin 50 mg capsule RxNorm: 286010 Take 1 Capsule(s) Oral QAM every morning 10/16/19 22 022 Inactive pregabalin 50 mg capsule RxNorm: 979836 1 Capsule(s) Oral QAM every morning 10/15/19 22 Inactive Shingrix (PF) 50 mcg/0.5 mL intramuscular suspension, kit RxNorm: 9259746 Administer 1/2 Milliliter(s) Intramuscular one time Nursing please administer upon arrival and once administered post a bridge message with date of administration, specimen preparation assistant, expiration date, and lot# so we can update [facility]. 10/09/19 22 Inactive shingrix step 1 Shingrix (PF) 50 mcg/0.5 mL intramuscular suspension, kit RxNorm: 1928207 Administer 1/2 Milliliter(s) Intramuscular one time Nursing please administer upon arrival and once administered post a bridge message with date of administration, specimen preparation assistant, expiration date, and lot# so we [...] aspart 100 unit/mL (3 mL) subcutaneous RxNorm: 9289803 Inject 10 Unit(s) Subcutaneous QHS every night at bedtime with nighttime snack 10/08/19 22 022 Inactive Shingrix (PF) 50 mcg/0.5 mL intramuscular suspension, kit RxNorm: 0552508 ADMINISTER 2-DOSE SERIES PER CDC GUIDELINES 10/08/19 22 022 Active Shingrix (PF) 50 mcg/0.5 mL intramuscular suspension, kit RxNorm: 6864855 ADMINISTER 2-DOSE SERIES PER CDC GUIDELINES 10/08/19 22 022 Inactive Novolog Flexpen U-100 Insulin aspart 100 unit/mL (3 mL) subcutaneous RxNorm: 2267942 Inject 36 Unit(s) Subcutaneous TID in addition to sliding scale 10/08/19 Inactive cholecalciferol (vitamin D3) 1,250 mcg (50,000 unit) capsule RxNorm: 621986 Take 1 Capsule(s) Oral QW once a week 10/08/19 024 Inactive Novofine Autocover 30 gauge x 1/3 needle RxNorm: Use 1 Miscellaneous UD as directed Use 1 needle as directed to administer insulin 5 times a day Dx:E11.42. 10/03/19 022 Inactive ok to substitute with any covered alternative pen needle benzoyl peroxide 10 % topical cleanser RxNorm: 834469 Apply 1 Application Topical QD apply to face, wash rinse and dry once daily (may change to QOD if drying) 08/19/19 22 022 Inactive (%covered by insurance) #60ml refill 11 dx: acne benzoyl peroxide 10 % topical cleanser RxNorm: 148628 Apply 1 Application Topical QD apply to face, wash rinse and dry once daily (may change to QOD if drying) 08/19/19 22 022 Inactive (%covered by insurance) #60ml refill 11 dx: acne benzoyl peroxide 10 % topical cleanser RxNorm: 822350 Apply 1 Application Topical QD apply to face, wash rinse and dry once daily (may change to QOD if drying) 08/19/19 22 022 Inactive (%covered by insurance) #60ml refill 11 dx: acne Lyrica 50 mg capsule RxNorm: 077149 Take 1 Capsule(s) Oral QAM every morning Take 1 capsule by mouth once daily 08/19/19 22 022 Inactive benzoyl peroxide 10 % topical cleanser RxNorm: 643515 Apply 1 Application Topical QD apply to face, wash rinse and dry once daily (may change to QOD if drying) 08/19/19 22 022 Inactive (%covered by insurance) #60ml refill 11 dx: acne Lyrica 100 mg capsule RxNorm: 573577 Take 1 Capsule(s) Oral QHS every night at bedtime Take 1 capsule by mouth once daily at bedtime 08/19/19 22 022 Inactive Lyrica 100 mg capsule RxNorm: 064542 Take 1 Capsule(s) Oral QHS every night at bedtime Take 1 capsule by mouth once daily at bedtime 08/16/19 22 022 Inactive Lyrica 50 mg capsule RxNorm: 228469 Take 1 Capsule(s) Oral QAM every morning Take 1 capsule by mouth once daily 08/16/19 22 022 Inactive Levemir FlexTouch U-100 Insulin 100 unit/mL (3 mL) subcutaneous pen RxNorm: 787627 Inject 86 Unit(s) Subcutaneous BID 08/05/19 22 022 Inactive d/c 83units BID Lyrica 100 mg capsule RxNorm: 112881 Take 1 Capsule(s) Oral QHS every night at bedtime Take 1 capsule by mouth once daily at bedtime 07/14/19 22 022 Inactive Lyrica 50 mg capsule RxNorm: 982677 Take 1 Capsule(s) Oral QAM every morning Take 1 capsule by mouth once daily 07/14/19 22 022 Inactive Levemir FlexTouch U-100 Insulin 100 unit/mL (3 mL) subcutaneous pen RxNorm: 543242 Inject 83 Unit(s) Subcutaneous BID 07/08/19 22 [...] test strip hydralazine 50 mg tablet RxNorm: 585984 Take 1 Tablet(s) Oral QID 05/05/20 21 022 Inactive venlafaxine ER 225 mg tablet,extended release 24 hr RxNorm: 157605 Take 1 Tablet(s) Oral QD 05/05/20 21 021 Inactive venlafaxine ER 225 mg tablet,extended release 24 hr RxNorm: 544169 Take 1 Tablet(s) Oral QD 05/05/20 21 022 Inactive isosorbide mononitrate ER 30 mg tablet,extended release 24 hr RxNorm: 677982 Take 1 Tablet(s) Oral QD 05/05/20 21 024 Inactive hydralazine 50 mg tablet RxNorm: 510178 Take 1 Tablet(s) Oral QID 05/05/20 21 021 Inactive aspirin 81 mg tablet,delayed release RxNorm: 781455 Take 1 Tablet(s) Oral QD 03/31/20 022 Inactive Vitamin D2 1,250 mcg (50,000 unit) capsule RxNorm: 0079693 Take 1 Capsule(s) Oral QW once a week x 12 weeks 03/31/20 022 Inactive Vitamin D2 1,250 mcg (50,000 unit) capsule RxNorm: 1085308 Take 1 Capsule(s) Oral QW once a week 03/31/20 021 Inactive Zetia 10 mg tablet RxNorm: 249349 Take 1 Tablet(s) Oral QD 03/31/20 024 Inactive Zetia 10 mg tablet RxNorm: 626673 Take 1 Tablet(s) Oral QD 03/31/20 021 Inactive hydralazine 25 mg tablet RxNorm: 659517 Take 1 Tablet(s) Oral QID 03/31/20 021 Inactive hydralazine 25 mg tablet RxNorm: 857030 Take 1 Tablet(s) Oral QID 03/31/20 021 Inactive hydralazine 10 mg tablet RxNorm: 587652 Take 1 Tablet(s) Oral QID 03/03/20 021 Inactive cephalexin 500 mg tablet RxNorm: 531187 Take 1 Tablet(s) Oral QID 02/27/20 021 Inactive cephalexin 500 mg tablet RxNorm: 347984 Take 1 Tablet(s) Oral QID 02/27/20 021 Inactive lisinopril 40 mg tablet RxNorm: 283260 Take 1 Tablet(s) Oral QD 02/11/20 023 Inactive Eliquis 5 mg tablet RxNorm: 4334178 Take 1 Tablet(s) Oral BID 01/05/20 21 025 Inactive Eliquis 5 mg tablet RxNorm: 8299591 Take 2 Tablet(s) Oral QD 01/01/20 21 021 Inactive Lyrica 50 mg capsule RxNorm: 874103 Take 1 Capsule(s) Oral QAM every morning 12/24/19 21 021 Inactive Lyrica 100 mg capsule RxNorm: 791327 Take 1 Capsule(s) Oral QHS every night at bedtime 12/24/19 21 021 Inactive clotrimazole 1 % topical cream RxNorm: 651079 Apply to right foot and toes Topical BID 12/04/19 21 023 Inactive metoprolol succinate ER 200 mg tablet,extended release 24 hr RxNorm: 542762 Take 1 Tablet(s) Oral QD 12/04/19 21 023 Inactive ciprofloxacin 500 mg tablet RxNorm: 445788 Take 1 Tablet(s) Oral QD 11/30/19 21 021 Inactive DX ofloxacin otic drops Accu-Chek Guide test strips RxNorm: USE 1 TO CHECK GLUCOSE 4 TIMES DAILY AND NEEDED 11/15/19 21 023 Inactive Blood Glucose Test strips RxNorm: Use 1 Test Strip QID at PRN 11/05/19 21 023 Inactive E11.42 lisinopril 30 mg tablet RxNorm: 666878 Take 1 Tablet(s) Oral QD 10/30/19 21 021 Inactive lisinopril 20 mg tablet RxNorm: 069513 Take 1 Tablet(s) Oral QD 10/23/19 21 021 Inactive lisinopril 20 mg tablet RxNorm: 842032 Take 1 Tablet(s) Oral QD 10/23/19 21 021 Inactive lisinopril 10 mg tablet RxNorm: 721209 Take 1 Tablet(s) Oral QD 10/02/19 21 021 Inactive icosapent ethyl 1 gram capsule RxNorm: 9217946 Take 2 Capsule(s) (2 gm) Oral BID with meals 09/12/19 21 024 Inactive Okay to dispense one 2gm tab if you have that available. icosapent ethyl 1 gram capsule RxNorm: 0457125 Take 2 Capsule(s) Oral BID 09/12/19 21 021 Inactive Okay to dispense one 2gm tab if you have that available. amlodipine 10 mg tablet RxNorm: 906679 Take 1 Tablet(s) Oral QD 09/04/19 21 021 Inactive aspirin 81 mg tablet,delayed release RxNorm: 931072 Take 1 Tablet(s) Oral QD 09/04/19 21 021 Inactive Levemir FlexTouch U-100 Insulin 100 unit/mL (3 mL) subcutaneous pen RxNorm: 232537 Inject 150 Unit(s) Subcutaneous BID 09/04/19 21 022 Inactive venlafaxine ER 150 mg tablet,extended release 24 hr RxNorm: 905482 Take 1 Tablet(s) Oral QD 09/04/19 21 021 Inactive clotrimazole-betame thasone 1 %-0.05 % topical cream RxNorm: 019232 Apply to rash on red area on left abdomen/chest Topical BID 08/10/19 21 Inactive amlodipine 5 mg tablet RxNorm: 828561 Take 1 Tablet(s) Oral QD 07/31/19 21 Inactive cephalexin 500 mg tablet RxNorm: 090301 Take 1 Tablet(s) Oral BID BID - Twice Daily 07/31/19 21 021 Inactive Start 08/01/20 pantoprazole 40 mg tablet,delayed release RxNorm: 847476 Take 1 Tablet(s) Oral QAM every morning 07/08/19 025 Inactive senna 8.6 mg tablet RxNorm: 156795 Take 1 Tablet(s) Oral QD 07/08/19 025 Inactive carbamazepine 200 mg tablet RxNorm: 585981 Take 1 Tablet(s) Oral BID 07/08/19 025 Inactive clopidogrel 75 mg tablet RxNorm: 989328 Take 1 Tablet(s) Oral QD 07/08/19 021 Inactive Blood Glucose Test strips RxNorm: Use 1 Test Strip QID at PRN 07/08/19 Inactive E11.42 Novolog Flexpen U-100 Insulin aspart 100 unit/mL (3 mL) subcutaneous RxNorm: 9717047 Administer per sliding scale Milliliter(s) Subcutaneous TID 151-200: 10 u; 201-250: 20 u; 251-300: 30 u; 301-350: 40 u; 351-400: 50 u. 07/08/19 21 022 Inactive lisinopril 5 mg tablet RxNorm: 257817 Take 1 Tablet(s) Oral QD 07/08/19 021 Inactive Novolog Flexpen U-100 Insulin aspart 100 unit/mL (3 mL) subcutaneous RxNorm: 6268614 Inject 85 Unit(s) Subcutaneous TID 07/08/19 21 022 Inactive pravastatin 80 mg tablet RxNorm: 746699 Take 1 Tablet(s) Oral QHS every night at bedtime 07/08/19 21 023 Inactive clotrimazole 1 % topical cream RxNorm: 309611 Apply to bilateral groin areas Topical BID 07/08/19 022 Inactive metoprolol succinate ER 200 mg tablet,extended release 24 hr RxNorm: 286338 Take 1 Tablet(s) Oral QD 07/08/19 021 Inactive Vitamin D3 25 mcg (1,000 unit) tablet RxNorm: 989626 Take 1 Tablet(s) Oral QD 07/08/19 021 Inactive isosorbide dinitrate 30 mg tablet RxNorm: 988241 Take 1 Tablet(s) Oral QD 07/08/19 021 Inactive Levemir FlexTouch U-100 Insulin 100 unit/mL (3 mL) subcutaneous pen RxNorm: 774769 Inject 140 Unit(s) Subcutaneous BID 07/08/19 021 Inactive torsemide 20 mg tablet RxNorm: 176688 Take 1 Tablet(s) Oral QD 07/08/19 023 Inactive venlafaxine 75 mg tablet RxNorm: 880387 Take 1 Tablet(s) Oral QD 07/08/19 021 Inactive acetaminophen 500 mg tablet RxNorm: 075306 Take 1 Tablet(s) Oral TID as needed for headache 06/18/19 021 Inactive acetaminophen 500 mg tablet RxNorm: 959729 Take 1 Tablet(s) Oral TID as needed for headache 06/18/19 021 Inactive Lyrica 100 mg capsule RxNorm: 700868 Take 1 Capsule(s) Oral QHS every night at bedtime 06/11/19 021 Inactive Lyrica 50 mg capsule RxNorm: 720421 Take 1 Capsule(s) Oral QAM every morning 06/10/19 21 021 Inactive hydrocortisone 2.5 % topical cream RxNorm: 643377 Apply to bilateral groin creases Topical BID 05/15/20 20 021 Inactive clotrimazole 1 % topical cream RxNorm: 561334 Apply to bilateral groin areas Topical BID 05/15/20 20 01/12/2 021 Inactive Lyrica 50 mg capsule RxNorm: 448448 Take 1 Capsule(s) Oral QAM every morning 05/14/20 20 Inactive Lyrica 100 mg capsule RxNorm: 774632 Take 1 Capsule(s) Oral QHS every night [...] Inactive Nystop 100,000 unit/gram topical powder RxNorm: 900156 Apply to abd folds, under breasts and L side of groin Topical BID x 14 days, then BID PRN 04/08/20 20 Inactive dx: yeast dermatitis Lyrica 100 mg capsule RxNorm: 312188 Take 1 Capsule(s) Oral QHS every night at bedtime 03/13/20 20 Inactive Lyrica 50 mg capsule RxNorm: 588307 Take 1 Capsule(s) Oral QAM every morning 03/13/20 20 Inactive ketoconazole 2 % shampoo RxNorm: 611682 Apply Topical two times a week with showers 03/11/20 20 024 Inactive cholecalciferol (vitamin D3) 50 mcg (2,000 unit) tablet RxNorm: 144923 Take 1 Tablet(s) Oral QD 03/11/20 20 021 Inactive Zetia 10 mg tablet RxNorm: 547624 Take 1 Tablet(s) Oral QD 03/07/20 20 021 Inactive Zetia 10 mg tablet RxNorm: 318130 Take 1 Tablet(s) Oral QD 03/07/20 20 Inactive Lyrica 50 mg capsule RxNorm: 997530 Take 1 Capsule(s) Oral QAM every morning 02/15/20 20 Inactive Lyrica 100 mg capsule RxNorm: 776891 Take 1 Capsule(s) Oral QHS every night at bedtime 02/15/20 20 Inactive Lyrica 100 mg capsule RxNorm: 970798 Take 1 Capsule(s) Oral QHS every night at bedtime 02/15/20 20 Inactive Lyrica 50 mg capsule RxNorm: 063690 Take 1 Capsule(s) Oral QAM every morning 02/15/20 20 Inactive metoprolol succinate ER 200 mg tablet,extended release 24 hr RxNorm: 892176 Take 1 Tablet(s) Oral QD 08/12/19 23 025 Inactive loperamide 2 mg capsule RxNorm: 788192 Take 1 Capsule(s) Oral QID as needed 09/06/19 25 025 Inactive hydralazine 50 mg tablet RxNorm: 431837 Take 1 Tablet(s) Oral QID 08/12/19 23 025 Inactive Soft Touch Lancets RxNorm: miscellaneous 03/04/20 24 025 Inactive venlafaxine ER 75 mg capsule,extended release 24 hr RxNorm: 605154 Take 3 Capsule(s) Oral QD 06/12/19 023 Inactive polyethylene glycol 3350 17 gram/dose oral powder RxNorm: 061027 Take 17=1 capful Gram(s) Oral BID as needed mix with 4-8oz of liquid 06/12/19 22 024 Inactive icosapent ethyl 1 gram capsule RxNorm: 5931343 Take 2 Capsule(s) (2 gm) Oral BID with meals 10/07/19 23 023 Inactive Okay to dispense one 2gm tab if you have that available. Levemir FlexTouch U-100 Insulin 100 unit/mL (3 mL) subcutaneous pen RxNorm: 727424 Inject 80 Unit(s) Subcutaneous BID 07/14/19 23 023 Inactive Novolog Flexpen U-100 Insulin aspart 100 unit/mL (3 mL) subcutaneous RxNorm: 4244532 Insert 30 Unit(s) Subcutaneous TID with meals [...] Planned Activity Notes Codes Status Date Referral: [facility] [address] [id number] [place] Referral Appointment Scheduled 10/20/2024 Referral: [facility]ocrinology [facility]: [address] [id number] [place] Referral No Records Received 07/10/2024 Referral: [facility] WPtel: [address], [address] [id number] [place] Referral Records Received 09/21/2022 Referral: [facility] WPtel: [address] [facility] [address] [id number] [place] Referral Completed 05/28/2021 Referral: General Cardiology [...] Sister Jyotsna involved in his care cell# [phone] Guardian: Giulia (tapan met in person 09/01/21), [...] MD at [facility]. Start Pioglitazone 15 mg QD. Stop Basaglar insulin. Increase Ozempic 2 mg once wkly. Continue Humalin R U-500 100 units with meals TID. FOLLOW UP 2 MONTHS. If BG >400 add 50 units to next scheduled dose of Humalin R U 500 insulin 06/12/2024
--- OUTSIDE RECORDS SUMMARY | 2024-10-19 19:32 | XMS_ITS | CCD ---
Author Organization Unknown Care Team Providers Care Bleach Mixer Name Role Phone Harrison Durham Primary Care Provider Leona vailable Unavailable Chronic Care Management Unavaila ble Summary Purpose DataExchange Insurance Providers Payer name Policy type / Coverage type Covered libertarian ID Effective Begin Date Effective End Date [place] [id number] Unknown Unknown [place] [id number] Unknown Unknown Family history Sister Brittany Suggs Diagnosis Age At Onset No Family Disease Entered N/A Runs in the family Diagnosis Age At Onset No Known Diseases N/A Sister Blanka Mcduffie Diagnosis Age At Onset No Family Disease Entered N/A Social History Social History Element Codes Description Effec tive Dates Tobacco history SNOMED CT: 631590932 Never smoker 01/16 Sexually Active? 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 ICD-10: [...] 09/07/2023 Resolved Coronary artery disease invo lving chitina coronary [...] Fill Instructions pregabalin 100 mg capsule RxNorm: 354784 Take 1 Capsule(s) Oral QAM every morning 05/22/19 25 025 Inactive nystatin 100,000 unit/gram topical powder RxNorm: 343790 Apply 1 Application Topical BID as needed abdominal/breast /groin folds 04/11/20 24 024 Inactive chlorthalidone 25 mg tablet RxNorm: 773642 Take 1 Tablet(s) Oral QAM every morning 04/06/20 No Stop Date Active pregabalin 150 mg capsule RxNorm: 210922 Take 1 Capsule(s) Oral QHS every night at bedtime 03/31/20 24 024 Inactive Vascepa 1 gram capsule RxNorm: 8078754 Take 2 Capsule(s) Oral BID 03/30/20 24 025 Active rosuvastatin 40 mg tablet RxNorm: 375734 1 TAB ORALLY EVERY EVENING (DX:CORONARY ARTERY DISEASE) 03/28/20 24 No Stop Date Active venlafaxine ER 75 mg capsule,extended release 24 hr RxNorm: 891279 3 CAPS (225MG) ORALLY DAILY (DX: MOOD DISORDER) 03/28/20 No Stop Date Active pregabalin 100 mg capsule RxNorm: 831772 Take 1 Capsule(s) Oral QAM every morning 03/20/20 Inactive cholecalciferol (vitamin D3) 1,250 mcg (50,000 unit) capsule RxNorm: 087135 Take 1 Capsule(s) Oral QW once a [...] Insulin 100 unit/mL (3 mL) subcutaneous RxNorm: 8575122 Inject 40 Unit(s) Subcutaneous BID 03/07/20 025 Inactive Please dispense one month supply. Humulin R U-500 (Concentrated) Insulin 500 unit/mL subcutaneous soln RxNorm: 661521 Inject 100 Unit(s) Subcutaneous AC before meals [...] PRN) to be use with new Accu [place] meter 03/04/20 Inactive ok to substitute with any covered alternative test strip FreeStyle Chema 2 Sensor kit RxNorm: Use UD as directed 03/02/20 025 Inactive FreeStyle Chema 2 Sensor kit RxNorm: Use UD as directed 03/02/20 Inactive Pen Needle 30 gauge x 5 RxNorm: Pen(s) Use 1 needle as directed TID 03/02/20 Inactive nystatin 100,000 unit/gram topical powder RxNorm: 966769 Apply 1 Application Topical BID as needed [...] (Concentrated) Insulin 500 unit/mL subcutaneous soln RxNorm: 818673 Inject 100 Unit(s) Subcutaneous TID 02/17/20 24 024 Inactive Humulin R U-500 (Concentrated) Insulin 500 unit/mL subcutaneous soln RxNorm: 753867 Inject 100 Unit(s) Subcutaneous TID 02/10/20 24 024 Inactive Basaglar KwikPen U-100 Insulin 100 unit/mL (3 mL) subcutaneous RxNorm: 9163535 Inject 30 Unit(s) Subcutaneous BID 02/10/20 24 024 Inactive Please dispense one month supply. pregabalin 100 mg capsule RxNorm: 979536 Take 1 Capsule(s) Oral QAM every morning 02/07/20 24 Inactive isosorbide mononitrate ER 60 mg tablet,extended release 24 hr RxNorm: 110311 Take 1 Tablet(s) Oral QD 02/01/20 24 Active aripiprazole 15 mg tablet RxNorm: 198574 Take 1/2 Tablet(s) Oral QD 02/01/20 24 Active torsemide 20 mg tablet RxNorm: 546175 1 TAB ORALLY DAILY (DX: EDEMA) 01/27/20 No Stop Date Active potassium chloride ER 20 mEq tablet,extended release(part/cryst) RxNorm: 7236492 2 TABS (40MEQ) ORALLY TWICE DAILY (DX: HYPOKALEMIA) 01/27/20 24 Inactive cephalexin 500 mg capsule RxNorm: 374591 Take 1 Capsule(s) Oral QID 12/17/19 24 024 Inactive cephalexin 500 mg capsule RxNorm: 088842 Take 1 Capsule(s) Oral QID 12/17/19 24 024 Inactive acetaminophen 500 mg tablet RxNorm: 142551 (MAX APAP:4GM/24HR) Take 1 Tablet(s) Oral TID as needed for pain 12/10/19 24 Inactive torsemide 20 mg tablet RxNorm: 749053 Take 1 Tablet(s) Oral QD 10/26/19 24 025 Inactive potassium chloride ER 20 mEq tablet,extended release RxNorm: 329173 Take 2 Tablet(s) Oral BID 10/26/19 24 Inactive torsemide 20 mg tablet RxNorm: 614412 Take 1 Tablet(s) Oral QD 10/26/19 24 Inactive potassium chloride ER 20 mEq tablet,extended release RxNorm: 924784 Take 2 Tablet(s) Oral BID 10/26/19 24 Inactive Artificial Tears (PF) 0.1 %-0.3 % drops in a dropperette RxNorm: 677262 Apply 1-2 Drop(s) Both eyes BID as needed 09/28/19 24 Inactive erythromycin 5 mg/gram (0.5 %) eye ointment RxNorm: 569285 Apply 1 Application Both eyes QHS every night at bedtime Instill ~1 cm ribbon into affected eye 09/28/19 24 024 Inactive Artificial Tears (PF) 0.1 %-0.3 % drops in a dropperette RxNorm: 729006 Apply 1-2 Drop(s) Both eyes BID as needed 09/28/19 24 024 Inactive erythromycin 5 mg/gram (0.5 %) eye ointment RxNorm: 948514 Apply 1 Application Both eyes QHS every night at bedtime Instill ~1 cm ribbon into affected eye 09/28/19 24 024 Inactive acetaminophen 500 mg tablet RxNorm: 265765 (MAX APAP:4GM/24HR) Take 1 Tablet(s) Oral TID as needed for pain 09/24/19 24 024 Inactive carvedilol 25 mg tablet RxNorm: 065697 Take 1 Tablet(s) Oral QD 09/08/19 No Stop Date Active pregabalin 100 mg capsule RxNorm: 466106 Take 1 Capsule(s) Oral QAM every morning 09/07/19 24 024 Inactive ezetimibe 10 mg tablet RxNorm: 817266 Take 1 Tablet(s) Oral QD 07/13/19 24 025 Inactive bisacodyl 10 mg rectal suppository RxNorm: 195629 Insert 1 Suppository Rectal QD as needed 07/13/19 24 No Stop Date Active polyethylene glycol 3350 17 gram/dose oral powder RxNorm: 451317 Take 17 Gram(s) Oral BID as needed mix in 4-8ox water 07/13/19 24 025 Inactive ketoconazole 2 % shampoo RxNorm: 386765 Apply 1 Application Topical UD as directed 07/13/19 No Stop Date Active Ozempic 1 mg/dose (4 mg/3 mL) subcutaneous pen injector RxNorm: 8397475 Inject 1 Milligram(s) Subcutaneous QW once a week 07/13/19 24 No Stop Date Active Guaifenesin AC 10 mg-100 mg/5 mL oral liquid RxNorm: 388957 Take 10 Milliliter(s) Oral Q4H every four hours as needed 02/27/20 24 No Stop Date Active ammonium lactate 12 % topical cream RxNorm: 473000 Apply 1 Application Topical BID 07/13/19 24 025 Inactive hydrocortisone 2.5 % topical cream RxNorm: 006130 Apply 1 Application Topical BID as needed 07/13/19 No Stop Date Active rosuvastatin 20 mg sprinkle capsule RxNorm: 2938968 Take 1 Capsule(s) Oral QD 07/13/19 24 025 Inactive rosuvastatin 40 mg tablet RxNorm: 409135 Take 1 Tablet(s) Oral QPM every evening 07/13/19 24 024 Inactive aripiprazole 15 mg tablet RxNorm: 221731 Take 1/2 Tablet(s) Oral QD 07/13/19 24 024 Inactive isosorbide mononitrate ER 60 mg tablet,extended release 24 hr RxNorm: 966496 Take 1 Tablet(s) Oral QD 07/13/19 24 024 Inactive Vascepa 1 gram capsule RxNorm: 5135588 Take 2 Capsule(s) Oral BID 07/13/19 24 024 Inactive venlafaxine ER 75 mg capsule,extended release 24 hr RxNorm: 289271 Take 3 Capsule(s) Oral QD 07/13/19 24 024 Inactive Basaglar KwikPen U-100 Insulin 100 unit/mL (3 mL) subcutaneous RxNorm: 0911386 Inject 30U SubQ twice daily 07/07/19 24 024 Inactive Please dispense one month supply. Basaglar KwikPen U-100 Insulin 100 unit/mL (3 mL) subcutaneous RxNorm: 2930139 Inject 30U SubQ twice daily 07/07/19 24 024 Inactive Please dispense one month supply. pregabalin 150 mg capsule RxNorm: 873670 Take 1 Capsule(s) Oral QHS every night at bedtime 07/05/19 24 024 Inactive pregabalin 150 mg capsule RxNorm: 967863 Take 1 Capsule(s) Oral QHS every night at bedtime 07/05/19 24 024 Inactive polyethylene glycol 3350 17 gram/dose oral powder RxNorm: 495812 Take 1 Packet Oral QD as needed (1 packet = 17g) mix with 4-8oz of liquid 06/15/19 024 Inactive bisacodyl 10 mg rectal suppository RxNorm: 262238 Insert one suppository per rectum once daily as needed for constipation 06/15/19 024 Inactive bisacodyl 10 mg rectal suppository RxNorm: 326345 Insert one suppository per rectum once daily as needed for constipation 06/15/19 024 Inactive pregabalin 100 mg capsule RxNorm: 642024 Take 1 Capsule(s) Oral QAM every morning 04/27/20 024 Inactive Levemir FlexPen 100 unit/mL (3 mL) solution subcutaneous insulin pen RxNorm: 250024 Inject 30 Unit(s) Subcutaneous BID 04/27/20 024 Inactive rosuvastatin 40 mg tablet RxNorm: 532372 Take 1 Tablet(s) Oral QPM every evening 04/16/20 024 Inactive D/C rosuvastatin 20mg venlafaxine ER 75 mg capsule,extended release 24 hr RxNorm: 683503 Take 3 Capsule(s) Oral QD 04/14/20 023 Inactive pregabalin 100 mg capsule RxNorm: 291436 Take 1 Capsule(s) Oral QAM every morning [...] strip clotrimazole 1 % topical cream RxNorm: 266388 Take apply topically to abdominal folds twice daily for 14 days 03/12/20 024 Inactive Ozempic 1 mg/dose (4 mg/3 mL) subcutaneous pen injector RxNorm: 5455513 Inject 1 Milligram(s) Subcutaneous QW once a week 03/11/20 023 Inactive rosuvastatin 20 mg tablet RxNorm: 464436 Take 1 Tablet(s) Oral QD 02/26/20 023 Inactive d/c pravastatin 80mg Ozempic 1 mg/dose (4 mg/3 mL) subcutaneous pen injector RxNorm: 8097806 Inject 1 Milligram(s) Subcutaneous QW once a week 02/20/20 023 Inactive pregabalin 150 mg capsule RxNorm: 136815 Take 1 Capsule(s) Oral HS at bed time 02/19/20 023 Inactive pregabalin 100 mg capsule RxNorm: 641377 Take 1 Capsule(s) Oral QAM every morning 02/18/20 023 Inactive venlafaxine ER 75 mg capsule,extended release 24 hr RxNorm: 574361 Take 3 Capsule(s) Oral QD 02/04/20 23 023 Inactive FreeStyle Chema 2 Sensor kit RxNorm: use as directed 02/04/20 23 023 Inactive FreeStyle Chema 2 Sensor kit RxNorm: use as directed 02/04/20 23 024 Inactive fluconazole 150 mg tablet RxNorm: 625616 Take 1 Tablet(s) Oral on day 3 and on day 6 02/03/20 024 Inactive venlafaxine ER 150 mg capsule,extended release 24 hr RxNorm: 808446 Take 1 Capsule(s) Oral QD 02/03/20 23 023 Inactive chlorthalidone 25 mg tablet RxNorm: 755790 Take 1 Tablet(s) Oral QAM every morning 02/03/20 23 024 Inactive acetaminophen 500 mg tablet RxNorm: 190798 1 TABLET ORALLY 3 TIMES DAILY (MAX APAP:4GM/24HR) 12/15/19 23 023 Inactive clotrimazole 1 % topical cream RxNorm: 996552 apply 1g topically to top of feet and in between toes BID 12/09/19 23 025 Inactive potassium chloride ER 20 mEq tablet,extended release RxNorm: 224777 Take 1 Tablet(s) Oral BID 12/09/19 024 Inactive d/c 20mEq once daily (sent from hospital) nystatin 100,000 unit/gram topical powder RxNorm: 709759 APPLY TO AFFECTED AREAS TOPICALLY 2 TIMES DAILY 11/21/19 023 Inactive Nystop 100,000 unit/gram topical powder RxNorm: 930754 Apply to abd folds, under breasts and L side of groin Topical BID x 14 days, then BID PRN 11/20/19 023 Inactive dx: yeast dermatitis [place] Ultra Strength 4 %-30 %-10 % topical cream RxNorm: 230498 Apply 1 Gram(s) Topical QID PRN to feet and legs for neuropathic pain 11/11/19 024 Inactive clotrimazole 1 % topical cream RxNorm: 625446 Apply 1/2 Gram(s) Topical BID Apply to affected areas of groin, periarea, and abdominal topically 2 times daily 11/10/19 023 Inactive hydrocortisone 2.5 % topical cream RxNorm: 687253 Apply 1/2 Gram(s) Topical BID as needed 11/10/19 024 Inactive Levemir FlexPen 100 unit/mL (3 mL) solution subcutaneous insulin pen RxNorm: 002743 Inject 30 Unit(s) Subcutaneous BID 10/07/19 023 Inactive Humulin R U-500 (Concentrated) Insulin 500 unit/mL subcutaneous soln RxNorm: 848310 Inject 100 Unit(s) Subcutaneous TID 10/07/19 024 Inactive Ozempic 0.25 mg or 0.5 mg (2 mg/3 mL) subcutaneous pen injector RxNorm: 1753592 Inject 1/2 Milligram(s) Subcutaneous QW once a week 10/07/19 024 Inactive aripiprazole 15 mg tablet RxNorm: 922852 1/2 TAB (7.5MG) ORALLY DAILY (DX:MAJOR DEPRESSIVE DISORDER) 09/23/19 023 Inactive Accu-Chek Guide test strips RxNorm: Use 1 Test Strip QID 09/15/19 023 Inactive ok to substitute with any covered alternative test strip Lancets,Thin 28 gauge RxNorm: Use 1 as directed QID 09/15/19 23 023 Inactive torsemide 20 mg tablet RxNorm: 920863 Take 1 Tablet(s) Oral BID 09/09/19 23 024 Inactive d/c once daily dosing carvedilol 25 mg tablet RxNorm: 835685 Take 1 Tablet(s) Oral QD 08/25/19 23 024 Inactive pregabalin 150 mg capsule RxNorm: 963237 1 Capsule(s) Oral HS at bed time 08/18/19 23 023 Inactive pregabalin 100 mg capsule RxNorm: 559569 1 Capsule(s) Oral QAM every morning 08/18/19 23 023 Inactive carvedilol 25 mg tablet RxNorm: 884165 1 Tablet(s) Oral QD 07/28/19 23 023 Inactive lisinopril 20 mg tablet RxNorm: 892198 Give 1 Tablet(s) Oral QD 07/28/19 23 023 Inactive Lyrica 150 mg capsule RxNorm: 324343 Take 1 Capsule(s) Oral QHS every night at bedtime 07/19/19 23 023 Inactive d/c 100mg dose Diflucan 150 mg tablet RxNorm: 711413 Take 1 Tablet(s) Oral QD repeat on day 3 and 6 07/19/19 23 023 Inactive pregabalin 100 mg capsule RxNorm: 872250 Take 1 Capsule(s) Oral QAM every morning 07/19/19 23 023 Inactive gatifloxacin 0.5 % eye drops RxNorm: 087049 Instill 1 Drop(s) as directed TID Instill 1 drop in to affected eye(s) starting 1 day prior to surgery and continue until gone (do not exceed 4 weeks). 07/13/19 23 023 Inactive carvedilol 25 mg tablet RxNorm: 625746 2 Tablet(s) Oral BID 07/13/19 23 023 Inactive Humulin R Regular U-100 Insulin 100 unit/mL injection solution RxNorm: 620440 85 Unit(s) Injection TID 07/13/19 23 023 Inactive ketorolac 0.5 % eye drops RxNorm: 263933 Instill 1 Drop(s) as directed QID Instill 1 drop into affected eye(s) 4 times daily starting 1 day prior to surgery and continue until gone (do not exceed 4 weeks). 07/13/19 23 023 Inactive Diflucan 150 mg tablet RxNorm: 824547 Take 1 Tablet(s) Oral QD repeat on day 3 and 6 06/30/19 23 023 Inactive Accu-Chek Guide test strips RxNorm: Use 1 Test Strip QID Use 1 test strip to monitor blood glucose 4 times daily and as needed. Dx:E11.42. 06/23/19 23 023 Inactive ok to substitute with any covered alternative test strip dextromethorphan-gu aifenesin 10 mg-100 mg/5 mL oral liquid RxNorm: 886210 Take 10 Milliliter(s) Oral every 4 hours as needed for cough 06/19/19 23 023 Inactive dextromethorphan-gu aifenesin 10 mg-100 mg/5 mL oral liquid RxNorm: 524945 Take 10 Milliliter(s) Oral every 4 hours as needed for cough 06/19/19 23 023 Inactive Lyrica 150 mg capsule RxNorm: 575708 Take 1 Capsule(s) Oral QHS every night at bedtime 06/18/19 23 023 Inactive d/c 100mg dose aripiprazole 15 mg tablet RxNorm: 339354 /2 TAB (7.5MG) ORALLY DAILY (DX:MAJOR DEPRESSIVE DISORDER) 06/05/19 23 023 Inactive pregabalin 100 mg capsule RxNorm: 233572 1 Capsule(s) Oral QAM every morning 06/02/19 23 023 Inactive Banophen 50 mg capsule RxNorm: 2752751 Take 1 Capsule(s) Oral Q6H every 6 hours as needed 05/19/19 23 No Stop Date Active Novolog Flexpen U-100 Insulin aspart 100 unit/mL (3 mL) subcutaneous RxNorm: 4813616 Inject 10 Unit(s) Subcutaneous QHS every night at bedtime with nighttime snack 04/08/20 022 Inactive Novolog Flexpen U-100 Insulin aspart 100 unit/mL (3 mL) subcutaneous RxNorm: 0028011 Inject 42 Unit(s) Subcutaneous TID in addition to sliding scale 04/08/20 022 Inactive d/c 36u albuterol sulfate HFA 90 mcg/actuation aerosol inhaler RxNorm: 0075608 Take 2 Puff(s) Inhalation Q4H every four hours as needed as needed for SOB, cough, or wheezing 04/07/20 030 Active Banophen 50 mg capsule RxNorm: 0595466 Take 1 Capsule(s) Oral Q6H every 6 hours as needed 04/06/20 023 Inactive diphenhydramine 50 mg tablet RxNorm: 7313356 Take 1 Tablet(s) Oral Q6H every 6 hours as needed 04/06/20 022 Inactive diphenhydramine 50 mg tablet RxNorm: 8020497 1 Tablet(s) Oral Q6H every 6 hours as needed 04/06/20 022 Inactive Abilify 15 mg tablet RxNorm: 774525 1/2 Tablet(s) Oral QD 03/10/20 023 Inactive Shingrix (PF) 50 mcg/0.5 mL intramuscular suspension, kit RxNorm: 0047922 Administer 1/2 Milliliter(s) Intramuscular QD one time shingrix step 2 ( step 1 given 11/04/21) WITH needle - Nursing please administer upon arrival and once administered post a bridge message 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, 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, expiration date, and lot# so we can update [facility] 02/18/20 22 022 Inactive dispense with needle Shingrix (PF) 50 mcg/0.5 mL intramuscular suspension, kit RxNorm: 0600662 Administer 1/2 Milliliter(s) Intramuscular QD one time shingrix step 2 ( step 1 given 11/04/21) WITH needle - Nursing please administer upon arrival and once administered post a bridge message with date of administration, 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, expiration date, and lot# so we can update [facility] 02/18/20 22 022 Inactive dispense with needle polyethylene glycol 3350 17 gram/dose oral powder RxNorm: 153245 Take 17=1 capful Gram(s) Oral QD mix with 4-8oz of liquid 01/08/20 22 025 Inactive take this in addition to BID prn order Lyrica 100 mg capsule RxNorm: 373303 Take 1 Capsule(s) Oral QAM every morning 01/08/20 22 022 Inactive d/c 50mg dose acetaminophen 500 mg tablet RxNorm: 002438 Take 1 Tablet(s) Oral TID 01/08/20 22 022 Inactive d/c PRN order Lyrica 150 mg capsule RxNorm: 811277 Take 1 Capsule(s) Oral QHS every night at bedtime 01/08/20 22 023 Inactive d/c 100mg dose Abilify 5 mg tablet RxNorm: 426670 Take 1 Tablet(s) Oral QD take 1 tab po QD #30 refill 5 dx: MDD 12/12/19 22 022 Inactive Abilify 5 mg tablet RxNorm: 725640 Take 1 Tablet(s) Oral QD take 1 tab po QD #30 refill 5 dx: MDD 12/12/19 22 022 Inactive Novolog Flexpen U-100 Insulin aspart 100 unit/mL (3 mL) subcutaneous RxNorm: 8820866 Inject 42 Unit(s) Subcutaneous TID in addition to sliding scale 12/10/19 22 022 Inactive d/c 36u chlorthalidone 25 mg tablet RxNorm: 597431 Take 1 Tablet(s) Oral QAM every morning 12/10/19 22 023 Inactive pregabalin 50 mg capsule RxNorm: 732360 Take 1 Capsule(s) Oral QAM every morning 11/12/19 22 022 Inactive tetanus-diphtheria toxoids-Td 2 Lf unit-2 Lf unit/0.5 mL IM suspension RxNorm: 139 Take 0.5 Miscellaneous Intramuscular 11/12/19 22 022 Inactive need tdap - nursing to administer upon arrival pregabalin 50 mg capsule RxNorm: 785606 Take 1 Capsule(s) Oral QAM every morning 10/16/19 22 10/04/2 022 Inactive pregabalin 50 mg capsule RxNorm: 429180 Take 1 Capsule(s) Oral QAM every morning 10/16/19 22 Inactive pregabalin 50 mg capsule RxNorm: 631966 1 Capsule(s) Oral QAM every morning 10/15/19 22 Inactive Shingrix (PF) 50 mcg/0.5 mL intramuscular suspension, kit RxNorm: 4839747 Administer 1/2 Milliliter(s) Intramuscular one time Nursing please administer upon arrival and once administered post a bridge message with date of administration, 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, expiration date, and lot# so we can update [facility]. 10/09/19 22 Inactive shingrix step 1 Shingrix (PF) 50 mcg/0.5 mL intramuscular suspension, kit RxNorm: 9607980 Administer 1/2 Milliliter(s) Intramuscular one time Nursing please administer upon arrival and once administered post a bridge message with date of administration, 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, expiration date, and lot# so we can [...] aspart 100 unit/mL (3 mL) subcutaneous RxNorm: 3727603 Inject 10 Unit(s) Subcutaneous QHS every night at bedtime with nighttime snack 10/08/19 Inactive Shingrix (PF) 50 mcg/0.5 mL intramuscular suspension, kit RxNorm: 2548575 ADMINISTER 2-DOSE SERIES PER CDC GUIDELINES 10/08/19 22 Active Shingrix (PF) 50 mcg/0.5 mL intramuscular suspension, kit RxNorm: 6806342 ADMINISTER 2-DOSE SERIES PER CDC GUIDELINES 10/08/19 22 Inactive Novolog Flexpen U-100 Insulin aspart 100 unit/mL (3 mL) subcutaneous RxNorm: 9198508 Inject 36 Unit(s) Subcutaneous TID in addition to sliding scale 10/08/19 22 Inactive cholecalciferol (vitamin D3) 1,250 mcg (50,000 unit) capsule RxNorm: 383893 Take 1 Capsule(s) Oral QW once a week 10/08/19 Inactive Novofine Autocover 30 gauge x 1/3 needle RxNorm: Use 1 Miscellaneous UD as directed Use 1 needle as directed to administer insulin 5 times a day Dx:E11.42. 10/03/19 Inactive ok to substitute with any covered alternative pen needle benzoyl peroxide 10 % topical cleanser RxNorm: 581510 Apply 1 Application Topical QD apply to face, wash rinse and dry once daily (may change to QOD if drying) 08/19/19 022 Inactive (%covered by insurance) #60ml refill 11 dx: acne benzoyl peroxide 10 % topical cleanser RxNorm: 399053 Apply 1 Application Topical QD apply to face, wash rinse and dry once daily (may change to QOD if drying) 08/19/19 022 Inactive (%covered by insurance) #60ml refill 11 dx: acne benzoyl peroxide 10 % topical cleanser RxNorm: 036951 Apply 1 Application Topical QD apply to face, wash rinse and dry once daily (may change to QOD if drying) 08/19/19 22 022 Inactive (%covered by insurance) #60ml refill 11 dx: acne Lyrica 50 mg capsule RxNorm: 976711 Take 1 Capsule(s) Oral QAM every morning Take 1 capsule by mouth once daily 08/19/19 22 022 Inactive benzoyl peroxide 10 % topical cleanser RxNorm: 126488 Apply 1 Application Topical QD apply to face, wash rinse and dry once daily (may change to QOD if drying) 08/19/19 22 022 Inactive (%covered by insurance) #60ml refill 11 dx: acne Lyrica 100 mg capsule RxNorm: 277011 Take 1 Capsule(s) Oral QHS every night at bedtime Take 1 capsule by mouth once daily at bedtime 08/19/19 22 022 Inactive Lyrica 100 mg capsule RxNorm: 293743 Take 1 Capsule(s) Oral QHS every night at bedtime Take 1 capsule by mouth once daily at bedtime 08/16/19 22 022 Inactive Lyrica 50 mg capsule RxNorm: 368505 Take 1 Capsule(s) Oral QAM every morning Take 1 capsule by mouth once daily 08/16/19 22 022 Inactive Levemir FlexTouch U-100 Insulin 100 unit/mL (3 mL) subcutaneous pen RxNorm: 363219 Inject 86 Unit(s) Subcutaneous BID 08/05/19 22 022 Inactive d/c 83units BID Lyrica 100 mg capsule RxNorm: 864769 Take 1 Capsule(s) Oral QHS every night at bedtime Take 1 capsule by mouth once daily at bedtime 07/14/19 22 022 Inactive Lyrica 50 mg capsule RxNorm: 610709 Take 1 Capsule(s) Oral QAM every morning Take 1 capsule by mouth once daily 07/14/19 22 022 Inactive Levemir FlexTouch U-100 Insulin 100 unit/mL (3 mL) subcutaneous pen RxNorm: 160566 Inject 83 Unit(s) Subcutaneous BID 07/08/19 22 [...] test strip hydralazine 50 mg tablet RxNorm: 480371 Take 1 Tablet(s) Oral QID 05/05/20 21 022 Inactive venlafaxine ER 225 mg tablet,extended release 24 hr RxNorm: 642376 Take 1 Tablet(s) Oral QD 05/05/20 21 021 Inactive venlafaxine ER 225 mg tablet,extended release 24 hr RxNorm: 509524 Take 1 Tablet(s) Oral QD 05/05/20 21 022 Inactive isosorbide mononitrate ER 30 mg tablet,extended release 24 hr RxNorm: 504754 Take 1 Tablet(s) Oral QD 05/05/20 21 024 Inactive hydralazine 50 mg tablet RxNorm: 318377 Take 1 Tablet(s) Oral QID 05/05/20 21 021 Inactive aspirin 81 mg tablet,delayed release RxNorm: 320004 Take 1 Tablet(s) Oral QD 03/31/20 21 022 Inactive Vitamin D2 1,250 mcg (50,000 unit) capsule RxNorm: 1124429 Take 1 Capsule(s) Oral QW once a week x 12 weeks 03/31/20 21 022 Inactive Vitamin D2 1,250 mcg (50,000 unit) capsule RxNorm: 5037949 Take 1 Capsule(s) Oral QW once a week 03/31/20 021 Inactive Zetia 10 mg tablet RxNorm: 451089 Take 1 Tablet(s) Oral QD 03/31/20 024 Inactive Zetia 10 mg tablet RxNorm: 363092 Take 1 Tablet(s) Oral QD 03/31/20 021 Inactive hydralazine 25 mg tablet RxNorm: 465702 Take 1 Tablet(s) Oral QID 03/31/20 021 Inactive hydralazine 25 mg tablet RxNorm: 817018 Take 1 Tablet(s) Oral QID 03/31/20 021 Inactive hydralazine 10 mg tablet RxNorm: 765842 Take 1 Tablet(s) Oral QID 03/03/20 021 Inactive cephalexin 500 mg tablet RxNorm: 483521 Take 1 Tablet(s) Oral QID 02/27/20 021 Inactive cephalexin 500 mg tablet RxNorm: 183696 Take 1 Tablet(s) Oral QID 02/27/20 021 Inactive lisinopril 40 mg tablet RxNorm: 042863 Take 1 Tablet(s) Oral QD 02/11/20 21 023 Inactive Eliquis 5 mg tablet RxNorm: 1572445 Take 1 Tablet(s) Oral BID 01/05/20 21 025 Inactive Eliquis 5 mg tablet RxNorm: 5042859 Take 2 Tablet(s) Oral QD 01/01/20 21 021 Inactive Lyrica 50 mg capsule RxNorm: 290151 Take 1 Capsule(s) Oral QAM every morning 12/24/19 21 021 Inactive Lyrica 100 mg capsule RxNorm: 809027 Take 1 Capsule(s) Oral QHS every night at bedtime 12/24/19 21 021 Inactive clotrimazole 1 % topical cream RxNorm: 526626 Apply to right foot and toes Topical BID 12/04/19 21 023 Inactive metoprolol succinate ER 200 mg tablet,extended release 24 hr RxNorm: 254443 Take 1 Tablet(s) Oral QD 12/04/19 023 Inactive ciprofloxacin 500 mg tablet RxNorm: 265288 Take 1 Tablet(s) Oral QD 11/30/19 21 021 Inactive DX ofloxacin otic drops Accu-Chek Guide test strips RxNorm: USE 1 TO CHECK GLUCOSE 4 TIMES DAILY AND NEEDED 11/15/19 21 023 Inactive Blood Glucose Test strips RxNorm: Use 1 Test Strip QID at PRN 11/05/19 21 023 Inactive E11.42 lisinopril 30 mg tablet RxNorm: 707182 Take 1 Tablet(s) Oral QD 10/30/19 021 Inactive lisinopril 20 mg tablet RxNorm: 166266 Take 1 Tablet(s) Oral QD 10/23/19 21 021 Inactive lisinopril 20 mg tablet RxNorm: 871826 Take 1 Tablet(s) Oral QD 10/23/19 21 021 Inactive lisinopril 10 mg tablet RxNorm: 369745 Take 1 Tablet(s) Oral QD 10/02/19 21 021 Inactive icosapent ethyl 1 gram capsule RxNorm: 0064892 Take 2 Capsule(s) (2 gm) Oral BID with meals 09/12/19 024 Inactive Okay to dispense one 2gm tab if you have that available. icosapent ethyl 1 gram capsule RxNorm: 8790412 Take 2 Capsule(s) Oral BID 09/12/19 21 021 Inactive Okay to dispense one 2gm tab if you have that available. amlodipine 10 mg tablet RxNorm: 267055 Take 1 Tablet(s) Oral QD 09/04/19 21 021 Inactive aspirin 81 mg tablet,delayed release RxNorm: 789426 Take 1 Tablet(s) Oral QD 09/04/19 21 021 Inactive Levemir FlexTouch U-100 Insulin 100 unit/mL (3 mL) subcutaneous pen RxNorm: 464855 Inject 150 Unit(s) Subcutaneous BID 09/04/19 022 Inactive venlafaxine ER 150 mg tablet,extended release 24 hr RxNorm: 269510 Take 1 Tablet(s) Oral QD 09/04/19 021 Inactive clotrimazole-betame thasone 1 %-0.05 % topical cream RxNorm: 064551 Apply to rash on red area on left abdomen/chest Topical BID 08/10/19 Inactive amlodipine 5 mg tablet RxNorm: 430453 Take 1 Tablet(s) Oral QD 07/31/19 021 Inactive cephalexin 500 mg tablet RxNorm: 765928 Take 1 Tablet(s) Oral BID BID - Twice Daily 07/31/19 021 Inactive Start 08/01/20 pantoprazole 40 mg tablet,delayed release RxNorm: 821499 Take 1 Tablet(s) Oral QAM every morning 07/08/19 025 Inactive senna 8.6 mg tablet RxNorm: 117020 Take 1 Tablet(s) Oral QD 07/08/19 025 Inactive carbamazepine 200 mg tablet RxNorm: 883633 Take 1 Tablet(s) Oral BID 07/08/19 025 Inactive clopidogrel 75 mg tablet RxNorm: 577129 Take 1 Tablet(s) Oral QD 07/08/19 021 Inactive Blood Glucose Test strips RxNorm: Use 1 Test Strip QID at PRN 07/08/19 Inactive E11.42 Novolog Flexpen U-100 Insulin aspart 100 unit/mL (3 mL) subcutaneous RxNorm: 4814021 Administer per sliding scale Milliliter(s) Subcutaneous TID 151-200: 10 u; 201-250: 20 u; 251-300: 30 u; 301-350: 40 u; 351-400: 50 u. 07/08/19 022 Inactive lisinopril 5 mg tablet RxNorm: 994011 Take 1 Tablet(s) Oral QD 07/08/19 021 Inactive Novolog Flexpen U-100 Insulin aspart 100 unit/mL (3 mL) subcutaneous RxNorm: 5035301 Inject 85 Unit(s) Subcutaneous TID 07/08/19 21 022 Inactive pravastatin 80 mg tablet RxNorm: 224267 Take 1 Tablet(s) Oral QHS every night at bedtime 07/08/19 023 Inactive clotrimazole 1 % topical cream RxNorm: 848304 Apply to bilateral groin areas Topical BID 07/08/19 022 Inactive metoprolol succinate ER 200 mg tablet,extended release 24 hr RxNorm: 198315 Take 1 Tablet(s) Oral QD 07/08/19 21 021 Inactive Vitamin D3 25 mcg (1,000 unit) tablet RxNorm: 940458 Take 1 Tablet(s) Oral QD 07/08/19 021 Inactive isosorbide dinitrate 30 mg tablet RxNorm: 773003 Take 1 Tablet(s) Oral QD 07/08/19 021 Inactive Levemir FlexTouch U-100 Insulin 100 unit/mL (3 mL) subcutaneous pen RxNorm: 659202 Inject 140 Unit(s) Subcutaneous BID 07/08/19 021 Inactive torsemide 20 mg tablet RxNorm: 996568 Take 1 Tablet(s) Oral QD 07/08/19 023 Inactive venlafaxine 75 mg tablet RxNorm: 091790 Take 1 Tablet(s) Oral QD 07/08/19 021 Inactive acetaminophen 500 mg tablet RxNorm: 857152 Take 1 Tablet(s) Oral TID as needed for headache 06/18/19 021 Inactive acetaminophen 500 mg tablet RxNorm: 126028 Take 1 Tablet(s) Oral TID as needed for headache 06/18/19 021 Inactive Lyrica 100 mg capsule RxNorm: 085851 Take 1 Capsule(s) Oral QHS every night at bedtime 06/11/19 021 Inactive Lyrica 50 mg capsule RxNorm: 798426 Take 1 Capsule(s) Oral QAM every morning 06/10/19 21 021 Inactive hydrocortisone 2.5 % topical cream RxNorm: 598096 Apply to bilateral groin creases Topical BID 05/15/20 20 021 Inactive clotrimazole 1 % topical cream RxNorm: 719632 Apply to bilateral groin areas Topical BID 05/15/20 20 Inactive Lyrica 50 mg capsule RxNorm: 749332 Take 1 Capsule(s) Oral QAM every morning 05/14/20 20 Inactive Lyrica 100 mg capsule RxNorm: 856553 Take 1 Capsule(s) Oral QHS every night [...] Inactive Nystop 100,000 unit/gram topical powder RxNorm: 402528 Apply to abd folds, under breasts and L side of groin Topical BID x 14 days, then BID PRN 04/08/20 20 Inactive dx: yeast dermatitis Lyrica 100 mg capsule RxNorm: 658067 Take 1 Capsule(s) Oral QHS every night at bedtime 03/13/20 20 Inactive Lyrica 50 mg capsule RxNorm: 084930 Take 1 Capsule(s) Oral QAM every morning 03/13/20 20 Inactive ketoconazole 2 % shampoo RxNorm: 281670 Apply Topical two times a week with showers 03/11/20 20 024 Inactive cholecalciferol (vitamin D3) 50 mcg (2,000 unit) tablet RxNorm: 986908 Take 1 Tablet(s) Oral QD 03/11/20 021 Inactive Zetia 10 mg tablet RxNorm: 736436 Take 1 Tablet(s) Oral QD 03/07/20 20 021 Inactive Zetia 10 mg tablet RxNorm: 517461 Take 1 Tablet(s) Oral QD 03/07/20 20 Inactive Lyrica 50 mg capsule RxNorm: 060656 Take 1 Capsule(s) Oral QAM every morning 02/15/20 Inactive Lyrica 100 mg capsule RxNorm: 519264 Take 1 Capsule(s) Oral QHS every night at bedtime 02/15/20 Inactive Lyrica 100 mg capsule RxNorm: 631224 Take 1 Capsule(s) Oral QHS every night at bedtime 02/15/20 Inactive Lyrica 50 mg capsule RxNorm: 006267 Take 1 Capsule(s) Oral QAM every morning 02/15/20 Inactive metoprolol succinate ER 200 mg tablet,extended release 24 hr RxNorm: 886181 Take 1 Tablet(s) Oral QD 08/12/19 025 Inactive loperamide 2 mg capsule RxNorm: 656387 Take 1 Capsule(s) Oral QID as needed 09/06/19 25 025 Inactive hydralazine 50 mg tablet RxNorm: 058430 Take 1 Tablet(s) Oral QID 08/12/19 025 Inactive Soft Touch Lancets RxNorm: miscellaneous 03/04/20 24 025 Inactive venlafaxine ER 75 mg capsule,extended release 24 hr RxNorm: 827517 Take 3 Capsule(s) Oral QD 06/12/19 22 023 Inactive polyethylene glycol 3350 17 gram/dose oral powder RxNorm: 054496 Take 17=1 capful Gram(s) Oral BID as needed mix with 4-8oz of liquid 06/12/19 22 024 Inactive icosapent ethyl 1 gram capsule RxNorm: 2487563 Take 2 Capsule(s) (2 gm) Oral BID with meals 10/07/19 23 023 Inactive Okay to dispense one 2gm tab if you have that available. Levemir FlexTouch U-100 Insulin 100 unit/mL (3 mL) subcutaneous pen RxNorm: 481163 Inject 80 Unit(s) Subcutaneous BID 07/14/19 23 023 Inactive Novolog Flexpen U-100 Insulin aspart 100 unit/mL (3 mL) subcutaneous RxNorm: 5713570 Insert 30 Unit(s) Subcutaneous TID with meals [...] Planned Activity Notes Codes Status Date Referral: [facility] [address] [id number] [place] Referral Appointment Scheduled 10/20/2024 Referral: [facility]/Endocrinology WPtel: [address] [place] [id number] [place] Referral No Records Received 07/10/2024 Referral: [facility] [address] [id number] [place] Referral Records Received 09/21/2022 Referral: [facility] WPtel: [address] [facility] [address] [id number] [place] Referral Completed 05/28/2021 Referral: General Cardiology [...] Sister Jyotsna involved in his care cell# [phone] Guardian: Giulia (tapan met in person 09/01/21), [...] 05.26.2024 with Jessa Webster MD at [facility]. Start Pioglitazone 15 mg QD. Stop Basaglar insulin. Increase Ozempic 2 mg once wkly. Continue Humalin R U-500 100 units with meals TID. FOLLOW UP 2 MONTHS. If BG >400 add 50 units to next scheduled dose of Humalin R U 500 insulin 06/12/2024
--- OUTSIDE RECORDS SUMMARY | 2024-10-19 19:32 | XMS_ITS | CCD ---
Author Name Cecilio Durham Address [address] [place] [address] [facility] Phone Care Team Providers Care City Engineer Name Role Phone Harrison Durham Primary Care Provider Leona vailable Unavailable Chronic Care Management Unavaila ble Summary Purpose DataExchange Insurance Providers Payer name Policy type / Coverage type Covered constitution party ID Effective Begin Date Effective End Date [place] Part B [id number] Unknown Unknown [place] Part B [id number] Unknown Unknown Family history Sister Brittany Suggs Diagnosis Age At Onset No Family Disease Entered N/A Runs in the family Diagnosis Age At Onset No Known Diseases N/A Sister Blanka Mcduffie Diagnosis Age At Onset No Family Disease Entered N/A Social History Social History Element Codes Description Effec tive Dates Tobacco history SNOMED CT: 261134330 Never smoker 01/16 Sexually Active? Unknown No [...] Home 09/03/[address]: 862213291 No Alcohol Consum ption 09/02/2020 Allergies, Adverse Reactions, Alerts Substance Reaction Codes Entered Date Inactivated Date Status * NO KNOWN FOOD ALLERGIES Unknown 07/13/2023 No Inactive Date Active LISINOPRIL RxNorm: 21601 02/12/2020 No Inactive Da te Active Metformin [...] 09/07/2023 Resolved Coronary artery disease invo lving [place] coronary [...] Instructions nystatin 100,000 unit/gram topical powder RxNorm: 215498 Apply 1 Application Topical BID as needed abdominal/breast /groin folds 04/11/20 24 024 Inactive chlorthalidone 25 mg tablet RxNorm: 156659 Take 1 Tablet(s) Oral QAM every morning 04/06/20 24 No Stop Date Active pregabalin 150 mg capsule RxNorm: 139586 Take 1 Capsule(s) Oral QHS every night at bedtime 03/31/20 24 024 Inactive Vascepa 1 gram capsule RxNorm: 2325160 Take 2 Capsule(s) Oral BID 03/30/20 24 025 Active rosuvastatin 40 mg tablet RxNorm: 770945 1 TAB ORALLY EVERY EVENING (DX:CORONARY ARTERY DISEASE) 03/28/20 No Stop Date Active venlafaxine ER 75 mg capsule,extended release 24 hr RxNorm: 332542 3 CAPS (225MG) ORALLY DAILY (DX: MOOD DISORDER) 03/28/20 No Stop Date Active pregabalin 100 mg capsule RxNorm: 195270 Take 1 Capsule(s) Oral QAM every morning 03/20/20 Inactive cholecalciferol (vitamin D3) 1,250 mcg (50,000 unit) capsule RxNorm: 563474 Take 1 Capsule(s) Oral QW once a [...] Insulin 100 unit/mL (3 mL) subcutaneous RxNorm: 4468318 Inject 40 Unit(s) Subcutaneous BID 03/07/20 025 Inactive Please dispense one month supply. Humulin R U-500 (Concentrated) Insulin 500 unit/mL subcutaneous soln RxNorm: 113644 Inject 100 Unit(s) Subcutaneous AC before meals [...] PRN) to be use with new Accu Seligman meter 03/04/20 Inactive ok to substitute with any covered alternative test strip FreeStyle Chema 2 Sensor kit RxNorm: Use UD as directed 03/02/20 025 Inactive FreeStyle Chema 2 Sensor kit RxNorm: Use UD as directed 03/02/20 Inactive Pen Needle 30 gauge x 516 RxNorm: Pen(s) Use 1 needle as directed TID 03/02/20 Inactive nystatin 100,000 unit/gram topical powder RxNorm: 240081 Apply 1 Application Topical BID as needed [...] (Concentrated) Insulin 500 unit/mL subcutaneous soln RxNorm: 260495 Inject 100 Unit(s) Subcutaneous TID 02/17/20 24 024 Inactive Humulin R U-500 (Concentrated) Insulin 500 unit/mL subcutaneous soln RxNorm: 815668 Inject 100 Unit(s) Subcutaneous TID 02/10/20 24 024 Inactive Basaglar KwikPen U-100 Insulin 100 unit/mL (3 mL) subcutaneous RxNorm: 3767116 Inject 30 Unit(s) Subcutaneous BID 02/10/20 24 024 Inactive Please dispense one month supply. pregabalin 100 mg capsule RxNorm: 622918 Take 1 Capsule(s) Oral QAM every morning 02/07/20 24 024 Inactive isosorbide mononitrate ER 60 mg tablet,extended release 24 hr RxNorm: 033332 Take 1 Tablet(s) Oral QD 02/01/20 24 Active aripiprazole 15 mg tablet RxNorm: 408887 Take 1/2 Tablet(s) Oral QD 02/01/20 24 Active torsemide 20 mg tablet RxNorm: 761457 1 TAB ORALLY DAILY (DX: EDEMA) 01/27/20 No Stop Date Active potassium chloride ER 20 mEq tablet,extended release(part/cryst) RxNorm: 3592573 2 TABS (40MEQ) ORALLY TWICE DAILY (DX: HYPOKALEMIA) 01/27/20 24 025 Inactive cephalexin 500 mg capsule RxNorm: 511973 Take 1 Capsule(s) Oral QID 12/17/19 24 024 Inactive cephalexin 500 mg capsule RxNorm: 525254 Take 1 Capsule(s) Oral QID 12/17/19 24 024 Inactive acetaminophen 500 mg tablet RxNorm: 544981 (MAX APAP:4GM/24HR) Take 1 Tablet(s) Oral TID as needed for pain 12/10/19 24 024 Inactive torsemide 20 mg tablet RxNorm: 220868 Take 1 Tablet(s) Oral QD 10/26/19 24 Inactive potassium chloride ER 20 mEq tablet,extended release RxNorm: 069251 Take 2 Tablet(s) Oral BID 10/26/19 24 025 Inactive torsemide 20 mg tablet RxNorm: 306808 Take 1 Tablet(s) Oral QD 10/26/19 24 024 Inactive potassium chloride ER 20 mEq tablet,extended release RxNorm: 402552 Take 2 Tablet(s) Oral BID 10/26/19 24 024 Inactive Artificial Tears (PF) 0.1 %-0.3 % drops in a dropperette RxNorm: 604032 Apply 1-2 Drop(s) Both eyes BID as needed 09/28/19 24 Inactive erythromycin 5 mg/gram (0.5 %) eye ointment RxNorm: 269350 Apply 1 Application Both eyes QHS every night at bedtime Instill ~1 cm ribbon into affected eye 09/28/19 24 024 Inactive Artificial Tears (PF) 0.1 %-0.3 % drops in a dropperette RxNorm: 623100 Apply 1-2 Drop(s) Both eyes BID as needed 09/28/19 24 024 Inactive erythromycin 5 mg/gram (0.5 %) eye ointment RxNorm: 348062 Apply 1 Application Both eyes QHS every night at bedtime Instill ~1 cm ribbon into affected eye 09/28/19 24 024 Inactive acetaminophen 500 mg tablet RxNorm: 118129 (MAX APAP:4GM/24HR) Take 1 Tablet(s) Oral TID as needed for pain 09/24/19 24 024 Inactive carvedilol 25 mg tablet RxNorm: 664119 Take 1 Tablet(s) Oral QD 09/08/19 No Stop Date Active pregabalin 100 mg capsule RxNorm: 172218 Take 1 Capsule(s) Oral QAM every morning 09/07/19 24 024 Inactive ezetimibe 10 mg tablet RxNorm: 382775 Take 1 Tablet(s) Oral QD 07/13/19 24 025 Inactive bisacodyl 10 mg rectal suppository RxNorm: 249886 Insert 1 Suppository Rectal QD as needed 07/13/19 No Stop Date Active polyethylene glycol 3350 17 gram/dose oral powder RxNorm: 689585 Take 17 Gram(s) Oral BID as needed mix in 4-8ox water 07/13/19 24 025 Inactive ketoconazole 2 % shampoo RxNorm: 927242 Apply 1 Application Topical UD as directed 07/13/19 No Stop Date Active Ozempic 1 mg/dose (4 mg/3 mL) subcutaneous pen injector RxNorm: 9101795 Inject 1 Milligram(s) Subcutaneous QW once a week 07/13/19 No Stop Date Active Guaifenesin AC 10 mg-100 mg/5 mL oral liquid RxNorm: 754994 Take 10 Milliliter(s) Oral Q4H every four hours as needed 07/13/19 No Stop Date Active ammonium lactate 12 % topical cream RxNorm: 998220 Apply 1 Application Topical BID 07/13/19 24 025 Inactive hydrocortisone 2.5 % topical cream RxNorm: 763864 Apply 1 Application Topical BID as needed 07/13/19 No Stop Date Active rosuvastatin 20 mg sprinkle capsule RxNorm: 8564598 Take 1 Capsule(s) Oral QD 07/13/19 24 025 Inactive rosuvastatin 40 mg tablet RxNorm: 809692 Take 1 Tablet(s) Oral QPM every evening 07/13/19 24 024 Inactive aripiprazole 15 mg tablet RxNorm: 074489 Take 1/2 Tablet(s) Oral QD 07/13/19 24 024 Inactive isosorbide mononitrate ER 60 mg tablet,extended release 24 hr RxNorm: 071333 Take 1 Tablet(s) Oral QD 07/13/19 24 024 Inactive Vascepa 1 gram capsule RxNorm: 6093085 Take 2 Capsule(s) Oral BID 07/13/19 24 024 Inactive venlafaxine ER 75 mg capsule,extended release 24 hr RxNorm: 372414 Take 3 Capsule(s) Oral QD 07/13/19 24 024 Inactive Basaglar KwikPen U-100 Insulin 100 unit/mL (3 mL) subcutaneous RxNorm: 5166778 Inject 30U SubQ twice daily 07/07/19 24 024 Inactive Please dispense one month supply. Basaglar KwikPen U-100 Insulin 100 unit/mL (3 mL) subcutaneous RxNorm: 0751449 Inject 30U SubQ twice daily 07/07/19 24 024 Inactive Please dispense one month supply. pregabalin 150 mg capsule RxNorm: 783340 Take 1 Capsule(s) Oral QHS every night at bedtime 07/05/19 24 024 Inactive pregabalin 150 mg capsule RxNorm: 708293 Take 1 Capsule(s) Oral QHS every night at bedtime 07/05/19 24 024 Inactive polyethylene glycol 3350 17 gram/dose oral powder RxNorm: 939309 Take 1 Packet Oral QD as needed (1 packet = 17g) mix with 4-8oz of liquid 06/15/19 024 Inactive bisacodyl 10 mg rectal suppository RxNorm: 669973 Insert one suppository per rectum once daily as needed for constipation 06/15/19 024 Inactive bisacodyl 10 mg rectal suppository RxNorm: 960226 Insert one suppository per rectum once daily as needed for constipation 06/15/19 024 Inactive pregabalin 100 mg capsule RxNorm: 347183 Take 1 Capsule(s) Oral QAM every morning 04/27/20 024 Inactive Levemir FlexPen 100 unit/mL (3 mL) solution subcutaneous insulin pen RxNorm: 473056 Inject 30 Unit(s) Subcutaneous BID 04/27/20 024 Inactive rosuvastatin 40 mg tablet RxNorm: 927064 Take 1 Tablet(s) Oral QPM every evening 04/16/20 024 Inactive D/C rosuvastatin 20mg venlafaxine ER 75 mg capsule,extended release 24 hr RxNorm: 880787 Take 3 Capsule(s) Oral QD 04/14/20 023 Inactive pregabalin 100 mg capsule RxNorm: 156803 Take 1 Capsule(s) Oral QAM every morning [...] strip clotrimazole 1 % topical cream RxNorm: 162743 Take apply topically to abdominal folds twice daily for 14 days 03/12/20 024 Inactive Ozempic 1 mg/dose (4 mg/3 mL) subcutaneous pen injector RxNorm: 0584572 Inject 1 Milligram(s) Subcutaneous QW once a week 03/11/20 23 023 Inactive rosuvastatin 20 mg tablet RxNorm: 378902 Take 1 Tablet(s) Oral QD 02/26/20 23 023 Inactive d/c pravastatin 80mg Ozempic 1 mg/dose (4 mg/3 mL) subcutaneous pen injector RxNorm: 8579354 Inject 1 Milligram(s) Subcutaneous QW once a week 02/20/20 23 023 Inactive pregabalin 150 mg capsule RxNorm: 788742 Take 1 Capsule(s) Oral HS at bed time 02/19/20 23 023 Inactive pregabalin 100 mg capsule RxNorm: 993453 Take 1 Capsule(s) Oral QAM every morning 02/18/20 023 Inactive venlafaxine ER 75 mg capsule,extended release 24 hr RxNorm: 485119 Take 3 Capsule(s) Oral QD 02/04/20 023 Inactive FreeStyle Chema 2 Sensor kit RxNorm: use as directed 02/04/20 23 023 Inactive FreeStyle Chema 2 Sensor kit RxNorm: use as directed 02/04/20 23 024 Inactive fluconazole 150 mg tablet RxNorm: 573046 Take 1 Tablet(s) Oral on day 3 and on day 6 02/03/20 23 024 Inactive venlafaxine ER 150 mg capsule,extended release 24 hr RxNorm: 257135 Take 1 Capsule(s) Oral QD 02/03/20 23 023 Inactive chlorthalidone 25 mg tablet RxNorm: 058403 Take 1 Tablet(s) Oral QAM every morning 02/03/20 23 024 Inactive acetaminophen 500 mg tablet RxNorm: 898614 1 TABLET ORALLY 3 TIMES DAILY (MAX APAP:4GM/24HR) 12/15/19 23 023 Inactive clotrimazole 1 % topical cream RxNorm: 103325 apply 1g topically to top of feet and in between toes BID 12/09/19 23 025 Inactive potassium chloride ER 20 mEq tablet,extended release RxNorm: 929727 Take 1 Tablet(s) Oral BID 12/09/19 024 Inactive d/c 20mEq once daily (sent from hospital) nystatin 100,000 unit/gram topical powder RxNorm: 595920 APPLY TO AFFECTED AREAS TOPICALLY 2 TIMES DAILY 11/21/19 23 023 Inactive Nystop 100,000 unit/gram topical powder RxNorm: 717479 Apply to abd folds, under breasts and L side of groin Topical BID x 14 days, then BID PRN 11/20/19 023 Inactive dx: yeast dermatitis [place] Ultra Strength 4 %-30 %-10 % topical cream RxNorm: 619272 Apply 1 Gram(s) Topical QID PRN to feet and legs for neuropathic pain 11/11/19 024 Inactive clotrimazole 1 % topical cream RxNorm: 693823 Apply 1/2 Gram(s) Topical BID Apply to affected areas of groin, periarea, and abdominal topically 2 times daily 11/10/19 023 Inactive hydrocortisone 2.5 % topical cream RxNorm: 363654 Apply 1/2 Gram(s) Topical BID as needed 11/10/19 024 Inactive Levemir FlexPen 100 unit/mL (3 mL) solution subcutaneous insulin pen RxNorm: 470400 Inject 30 Unit(s) Subcutaneous BID 10/07/19 023 Inactive Humulin R U-500 (Concentrated) Insulin 500 unit/mL subcutaneous soln RxNorm: 669689 Inject 100 Unit(s) Subcutaneous TID 10/07/19 024 Inactive Ozempic 0.25 mg or 0.5 mg (2 mg/3 mL) subcutaneous pen injector RxNorm: 2812168 Inject 1/2 Milligram(s) Subcutaneous QW once a week 10/07/19 024 Inactive aripiprazole 15 mg tablet RxNorm: 733532 1/2 TAB (7.5MG) ORALLY DAILY (DX:MAJOR DEPRESSIVE DISORDER) 09/23/19 023 Inactive Accu-Chek Guide test strips RxNorm: Use 1 Test Strip QID 09/15/19 23 023 Inactive ok to substitute with any covered alternative test strip Lancets,Thin 28 gauge RxNorm: Use 1 as directed QID 09/15/19 23 023 Inactive torsemide 20 mg tablet RxNorm: 614711 Take 1 Tablet(s) Oral BID 09/09/19 23 024 Inactive d/c once daily dosing carvedilol 25 mg tablet RxNorm: 044098 Take 1 Tablet(s) Oral QD 08/25/19 23 024 Inactive pregabalin 150 mg capsule RxNorm: 914495 1 Capsule(s) Oral HS at bed time 08/18/19 23 023 Inactive pregabalin 100 mg capsule RxNorm: 253902 1 Capsule(s) Oral QAM every morning 08/18/19 23 023 Inactive carvedilol 25 mg tablet RxNorm: 929089 1 Tablet(s) Oral QD 07/28/19 23 023 Inactive lisinopril 20 mg tablet RxNorm: 897566 Give 1 Tablet(s) Oral QD 07/28/19 23 023 Inactive Lyrica 150 mg capsule RxNorm: 948389 Take 1 Capsule(s) Oral QHS every night at bedtime 07/19/19 23 023 Inactive d/c 100mg dose Diflucan 150 mg tablet RxNorm: 142811 Take 1 Tablet(s) Oral QD repeat on day 3 and 6 07/19/19 23 023 Inactive pregabalin 100 mg capsule RxNorm: 107774 Take 1 Capsule(s) Oral QAM every morning 07/19/19 23 023 Inactive gatifloxacin 0.5 % eye drops RxNorm: 766975 Instill 1 Drop(s) as directed TID Instill 1 drop in to affected eye(s) starting 1 day prior to surgery and continue until gone (do not exceed 4 weeks). 07/13/19 23 023 Inactive carvedilol 25 mg tablet RxNorm: 435751 2 Tablet(s) Oral BID 07/13/19 23 023 Inactive Humulin R Regular U-100 Insulin 100 unit/mL injection solution RxNorm: 024403 85 Unit(s) Injection TID 07/13/19 23 023 Inactive ketorolac 0.5 % eye drops RxNorm: 172356 Instill 1 Drop(s) as directed QID Instill 1 drop into affected eye(s) 4 times daily starting 1 day prior to surgery and continue until gone (do not exceed 4 weeks). 07/13/19 23 023 Inactive Diflucan 150 mg tablet RxNorm: 969832 Take 1 Tablet(s) Oral QD repeat on day 3 and 6 06/30/19 23 023 Inactive Accu-Chek Guide test strips RxNorm: Use 1 Test Strip QID Use 1 test strip to monitor blood glucose 4 times daily and as needed. Dx:E11.42. 06/23/19 23 023 Inactive ok to substitute with any covered alternative test strip dextromethorphan-gu aifenesin 10 mg-100 mg/5 mL oral liquid RxNorm: 187169 Take 10 Milliliter(s) Oral every 4 hours as needed for cough 06/19/19 23 023 Inactive dextromethorphan-gu aifenesin 10 mg-100 mg/5 mL oral liquid RxNorm: 721940 Take 10 Milliliter(s) Oral every 4 hours as needed for cough 06/19/19 23 023 Inactive Lyrica 150 mg capsule RxNorm: 377779 Take 1 Capsule(s) Oral QHS every night at bedtime 06/18/19 23 023 Inactive d/c 100mg dose aripiprazole 15 mg tablet RxNorm: 805132 /2 TAB (7.5MG) ORALLY DAILY (DX:MAJOR DEPRESSIVE DISORDER) 06/05/19 23 023 Inactive pregabalin 100 mg capsule RxNorm: 818613 1 Capsule(s) Oral QAM every morning 06/02/19 23 023 Inactive Banophen 50 mg capsule RxNorm: 5698829 Take 1 Capsule(s) Oral Q6H every 6 hours as needed 05/19/19 23 No Stop Date Active Novolog Flexpen U-100 Insulin aspart 100 unit/mL (3 mL) subcutaneous RxNorm: 3508069 Inject 10 Unit(s) Subcutaneous QHS every night at bedtime with nighttime snack 04/08/20 Inactive Novolog Flexpen U-100 Insulin aspart 100 unit/mL (3 mL) subcutaneous RxNorm: 6183476 Inject 42 Unit(s) Subcutaneous TID in addition to sliding scale 04/08/20 Inactive d/c 36u albuterol sulfate HFA 90 mcg/actuation aerosol inhaler RxNorm: 4650371 Take 2 Puff(s) Inhalation Q4H every four hours as needed as needed for SOB, cough, or wheezing 04/07/20 030 Active Banophen 50 mg capsule RxNorm: 7648441 Take 1 Capsule(s) Oral Q6H every 6 hours as needed 04/06/20 023 Inactive diphenhydramine 50 mg tablet RxNorm: 0048578 Take 1 Tablet(s) Oral Q6H every 6 hours as needed 04/06/20 022 Inactive diphenhydramine 50 mg tablet RxNorm: 2329935 1 Tablet(s) Oral Q6H every 6 hours as needed 04/06/20 022 Inactive Abilify 15 mg tablet RxNorm: 074849 1/2 Tablet(s) Oral QD 03/10/20 023 Inactive Shingrix (PF) 50 mcg/0.5 mL intramuscular suspension, kit RxNorm: 4573823 Administer 1/2 Milliliter(s) Intramuscular QD one time shingrix step 2 ( step 1 given 11/04/21) WITH needle - Nursing please administer upon arrival and once administered post a bridge message with date of administration, data base design analyst, expiration date, and lot# so we can update [facility] 02/18/20 22 022 Inactive dispense with needle Shingrix (PF) 50 mcg/0.5 mL intramuscular suspension, kit RxNorm: 8342361 Administer 1/2 Milliliter(s) Intramuscular QD one time shingrix step 2 ( step 1 given 11/04/21) WITH needle - Nursing please administer upon arrival and once administered post a bridge message with date of administration, data base design analyst, expiration date, and lot# so we can update [facility] 02/18/20 22 022 Inactive dispense with needle polyethylene glycol 3350 17 gram/dose oral powder RxNorm: 646453 Take 17=1 capful Gram(s) Oral QD mix with 4-8oz of liquid 01/08/20 22 025 Inactive take this in addition to BID prn order Lyrica 100 mg capsule RxNorm: 560342 Take 1 Capsule(s) Oral QAM every morning 01/08/20 22 022 Inactive d/c 50mg dose acetaminophen 500 mg tablet RxNorm: 873846 Take 1 Tablet(s) Oral TID 01/08/20 22 022 Inactive d/c PRN order Lyrica 150 mg capsule RxNorm: 904156 Take 1 Capsule(s) Oral QHS every night at bedtime 01/08/20 22 023 Inactive d/c 100mg dose Abilify 5 mg tablet RxNorm: 114099 Take 1 Tablet(s) Oral QD take 1 tab po QD #30 refill 5 dx: MDD 12/12/19 22 022 Inactive Abilify 5 mg tablet RxNorm: 325047 Take 1 Tablet(s) Oral QD take 1 tab po QD #30 refill 5 dx: MDD 12/12/19 22 022 Inactive Novolog Flexpen U-100 Insulin aspart 100 unit/mL (3 mL) subcutaneous RxNorm: 9905579 Inject 42 Unit(s) Subcutaneous TID in addition to sliding scale 12/10/19 22 022 Inactive d/c 36u chlorthalidone 25 mg tablet RxNorm: 052904 Take 1 Tablet(s) Oral QAM every morning 12/10/19 22 023 Inactive pregabalin 50 mg capsule RxNorm: 551140 Take 1 Capsule(s) Oral QAM every morning 11/12/19 22 022 Inactive tetanus-diphtheria toxoids-Td 2 Lf unit-2 Lf unit/0.5 mL IM suspension RxNorm: 139 Take 0.5 Miscellaneous Intramuscular 11/12/19 22 022 Inactive need tdap - nursing to administer upon arrival pregabalin 50 mg capsule RxNorm: 876197 Take 1 Capsule(s) Oral QAM every morning 10/16/19 22 022 Inactive pregabalin 50 mg capsule RxNorm: 943133 Take 1 Capsule(s) Oral QAM every morning 10/16/19 22 Inactive pregabalin 50 mg capsule RxNorm: 429203 1 Capsule(s) Oral QAM every morning 10/15/19 22 Inactive Shingrix (PF) 50 mcg/0.5 mL intramuscular suspension, kit RxNorm: 3732857 Administer 1/2 Milliliter(s) Intramuscular one time Nursing please administer upon arrival and once administered post a bridge message with date of administration, data base design analyst, expiration date, and lot# so we can update [facility]. 10/09/19 22 022 Inactive shingrix step 1 Shingrix (PF) 50 mcg/0.5 mL intramuscular suspension, kit RxNorm: 8379304 Administer 1/2 Milliliter(s) Intramuscular one time Nursing please administer upon arrival and once administered post a bridge message with date of administration, data base design analyst, expiration date, and lot# so we [...] aspart 100 unit/mL (3 mL) subcutaneous RxNorm: 0007289 Inject 10 Unit(s) Subcutaneous QHS every night at bedtime with nighttime snack 10/08/19 22 022 Inactive Shingrix (PF) 50 mcg/0.5 mL intramuscular suspension, kit RxNorm: 2234535 ADMINISTER 2-DOSE SERIES PER CDC GUIDELINES 10/08/19 22 022 Active Shingrix (PF) 50 mcg/0.5 mL intramuscular suspension, kit RxNorm: 1714069 ADMINISTER 2-DOSE SERIES PER CDC GUIDELINES 10/08/19 22 Inactive Novolog Flexpen U-100 Insulin aspart 100 unit/mL (3 mL) subcutaneous RxNorm: 2326378 Inject 36 Unit(s) Subcutaneous TID in addition to sliding scale 10/08/19 022 Inactive cholecalciferol (vitamin D3) 1,250 mcg (50,000 unit) capsule RxNorm: 097765 Take 1 Capsule(s) Oral QW once a week 10/08/19 Inactive Novofine Autocover 30 gauge x 1/3 needle RxNorm: Use 1 Miscellaneous UD as directed Use 1 needle as directed to administer insulin 5 times a day Dx:E11.42. 10/03/19 Inactive ok to substitute with any covered alternative pen needle benzoyl peroxide 10 % topical cleanser RxNorm: 526778 Apply 1 Application Topical QD apply to face, wash rinse and dry once daily (may change to QOD if drying) 08/19/19 22 022 Inactive (%covered by insurance) #60ml refill 11 dx: acne benzoyl peroxide 10 % topical cleanser RxNorm: 832062 Apply 1 Application Topical QD apply to face, wash rinse and dry once daily (may change to QOD if drying) 08/19/19 022 Inactive (%covered by insurance) #60ml refill 11 dx: acne benzoyl peroxide 10 % topical cleanser RxNorm: 247306 Apply 1 Application Topical QD apply to face, wash rinse and dry once daily (may change to QOD if drying) 08/19/19 22 022 Inactive (%covered by insurance) #60ml refill 11 dx: acne Lyrica 50 mg capsule RxNorm: 533938 Take 1 Capsule(s) Oral QAM every morning Take 1 capsule by mouth once daily 08/19/19 22 022 Inactive benzoyl peroxide 10 % topical cleanser RxNorm: 417380 Apply 1 Application Topical QD apply to face, wash rinse and dry once daily (may change to QOD if drying) 08/19/19 22 022 Inactive (%covered by insurance) #60ml refill 11 dx: acne Lyrica 100 mg capsule RxNorm: 362584 Take 1 Capsule(s) Oral QHS every night at bedtime Take 1 capsule by mouth once daily at bedtime 08/19/19 22 022 Inactive Lyrica 100 mg capsule RxNorm: 791011 Take 1 Capsule(s) Oral QHS every night at bedtime Take 1 capsule by mouth once daily at bedtime 08/16/19 22 022 Inactive Lyrica 50 mg capsule RxNorm: 415786 Take 1 Capsule(s) Oral QAM every morning Take 1 capsule by mouth once daily 08/16/19 22 022 Inactive Levemir FlexTouch U-100 Insulin 100 unit/mL (3 mL) subcutaneous pen RxNorm: 015758 Inject 86 Unit(s) Subcutaneous BID 08/05/19 22 022 Inactive d/c 83units BID Lyrica 100 mg capsule RxNorm: 058839 Take 1 Capsule(s) Oral QHS every night at bedtime Take 1 capsule by mouth once daily at bedtime 07/14/19 22 022 Inactive Lyrica 50 mg capsule RxNorm: 088370 Take 1 Capsule(s) Oral QAM every morning Take 1 capsule by mouth once daily 07/14/19 22 022 Inactive Levemir FlexTouch U-100 Insulin 100 unit/mL (3 mL) subcutaneous pen RxNorm: 152942 Inject 83 Unit(s) Subcutaneous BID 07/08/19 22 [...] test strip hydralazine 50 mg tablet RxNorm: 674758 Take 1 Tablet(s) Oral QID 05/05/20 21 022 Inactive venlafaxine ER 225 mg tablet,extended release 24 hr RxNorm: 134506 Take 1 Tablet(s) Oral QD 05/05/20 21 021 Inactive venlafaxine ER 225 mg tablet,extended release 24 hr RxNorm: 877526 Take 1 Tablet(s) Oral QD 05/05/20 21 022 Inactive isosorbide mononitrate ER 30 mg tablet,extended release 24 hr RxNorm: 155426 Take 1 Tablet(s) Oral QD 05/05/20 21 024 Inactive hydralazine 50 mg tablet RxNorm: 944449 Take 1 Tablet(s) Oral QID 05/05/20 21 021 Inactive aspirin 81 mg tablet,delayed release RxNorm: 597100 Take 1 Tablet(s) Oral QD 03/31/20 21 022 Inactive Vitamin D2 1,250 mcg (50,000 unit) capsule RxNorm: 2632124 Take 1 Capsule(s) Oral QW once a week x 12 weeks 03/31/20 022 Inactive Vitamin D2 1,250 mcg (50,000 unit) capsule RxNorm: 0250743 Take 1 Capsule(s) Oral QW once a week 03/31/20 Inactive Zetia 10 mg tablet RxNorm: 067359 Take 1 Tablet(s) Oral QD 03/31/20 024 Inactive Zetia 10 mg tablet RxNorm: 364342 Take 1 Tablet(s) Oral QD 03/31/20 021 Inactive hydralazine 25 mg tablet RxNorm: 885603 Take 1 Tablet(s) Oral QID 03/31/20 021 Inactive hydralazine 25 mg tablet RxNorm: 739722 Take 1 Tablet(s) Oral QID 03/31/20 021 Inactive hydralazine 10 mg tablet RxNorm: 980209 Take 1 Tablet(s) Oral QID 03/03/20 021 Inactive cephalexin 500 mg tablet RxNorm: 045602 Take 1 Tablet(s) Oral QID 02/27/20 021 Inactive cephalexin 500 mg tablet RxNorm: 116267 Take 1 Tablet(s) Oral QID 02/27/20 021 Inactive lisinopril 40 mg tablet RxNorm: 072005 Take 1 Tablet(s) Oral QD 02/11/20 21 023 Inactive Eliquis 5 mg tablet RxNorm: 9386946 Take 1 Tablet(s) Oral BID 01/05/20 21 025 Inactive Eliquis 5 mg tablet RxNorm: 5544525 Take 2 Tablet(s) Oral QD 01/01/20 21 021 Inactive Lyrica 50 mg capsule RxNorm: 468090 Take 1 Capsule(s) Oral QAM every morning 12/24/19 21 021 Inactive Lyrica 100 mg capsule RxNorm: 504064 Take 1 Capsule(s) Oral QHS every night at bedtime 12/24/19 21 021 Inactive clotrimazole 1 % topical cream RxNorm: 282574 Apply to right foot and toes Topical BID 12/04/19 21 023 Inactive metoprolol succinate ER 200 mg tablet,extended release 24 hr RxNorm: 755205 Take 1 Tablet(s) Oral QD 12/04/19 21 023 Inactive ciprofloxacin 500 mg tablet RxNorm: 118804 Take 1 Tablet(s) Oral QD 11/30/19 21 021 Inactive DX ofloxacin otic drops Accu-Chek Guide test strips RxNorm: USE 1 TO CHECK GLUCOSE 4 TIMES DAILY AND NEEDED 11/15/19 21 023 Inactive Blood Glucose Test strips RxNorm: Use 1 Test Strip QID at PRN 11/05/19 21 023 Inactive E11.42 lisinopril 30 mg tablet RxNorm: 230063 Take 1 Tablet(s) Oral QD 10/30/19 21 021 Inactive lisinopril 20 mg tablet RxNorm: 116193 Take 1 Tablet(s) Oral QD 10/23/19 21 021 Inactive lisinopril 20 mg tablet RxNorm: 808910 Take 1 Tablet(s) Oral QD 10/23/19 21 021 Inactive lisinopril 10 mg tablet RxNorm: 797476 Take 1 Tablet(s) Oral QD 10/02/19 21 021 Inactive icosapent ethyl 1 gram capsule RxNorm: 6738892 Take 2 Capsule(s) (2 gm) Oral BID with meals 09/12/19 21 024 Inactive Okay to dispense one 2gm tab if you have that available. icosapent ethyl 1 gram capsule RxNorm: 4692072 Take 2 Capsule(s) Oral BID 09/12/19 21 021 Inactive Okay to dispense one 2gm tab if you have that available. amlodipine 10 mg tablet RxNorm: 346093 Take 1 Tablet(s) Oral QD 09/04/19 21 021 Inactive aspirin 81 mg tablet,delayed release RxNorm: 504535 Take 1 Tablet(s) Oral QD 09/04/19 21 021 Inactive Levemir FlexTouch U-100 Insulin 100 unit/mL (3 mL) subcutaneous pen RxNorm: 386993 Inject 150 Unit(s) Subcutaneous BID 09/04/19 022 Inactive venlafaxine ER 150 mg tablet,extended release 24 hr RxNorm: 690613 Take 1 Tablet(s) Oral QD 09/04/19 021 Inactive clotrimazole-betame thasone 1 %-0.05 % topical cream RxNorm: 151630 Apply to rash on red area on left abdomen/chest Topical BID 08/10/19 021 Inactive amlodipine 5 mg tablet RxNorm: 770370 Take 1 Tablet(s) Oral QD 07/31/19 021 Inactive cephalexin 500 mg tablet RxNorm: 489668 Take 1 Tablet(s) Oral BID BID - Twice Daily 07/31/19 021 Inactive Start 08/01/20 pantoprazole 40 mg tablet,delayed release RxNorm: 274809 Take 1 Tablet(s) Oral QAM every morning 07/08/19 025 Inactive senna 8.6 mg tablet RxNorm: 605437 Take 1 Tablet(s) Oral QD 07/08/19 025 Inactive carbamazepine 200 mg tablet RxNorm: 793977 Take 1 Tablet(s) Oral BID 07/08/19 025 Inactive clopidogrel 75 mg tablet RxNorm: 081496 Take 1 Tablet(s) Oral QD 07/08/19 021 Inactive Blood Glucose Test strips RxNorm: Use 1 Test Strip QID at PRN 07/08/19 021 Inactive E11.42 Novolog Flexpen U-100 Insulin aspart 100 unit/mL (3 mL) subcutaneous RxNorm: 6331205 Administer per sliding scale Milliliter(s) Subcutaneous TID 151-200: 10 u; 201-250: 20 u; 251-300: 30 u; 301-350: 40 u; 351-400: 50 u. 07/08/19 21 022 Inactive lisinopril 5 mg tablet RxNorm: 467340 Take 1 Tablet(s) Oral QD 07/08/19 021 Inactive Novolog Flexpen U-100 Insulin aspart 100 unit/mL (3 mL) subcutaneous RxNorm: 1742803 Inject 85 Unit(s) Subcutaneous TID 07/08/19 022 Inactive pravastatin 80 mg tablet RxNorm: 933843 Take 1 Tablet(s) Oral QHS every night at bedtime 07/08/19 023 Inactive clotrimazole 1 % topical cream RxNorm: 573307 Apply to bilateral groin areas Topical BID 07/08/19 022 Inactive metoprolol succinate ER 200 mg tablet,extended release 24 hr RxNorm: 810318 Take 1 Tablet(s) Oral QD 07/08/19 21 021 Inactive Vitamin D3 25 mcg (1,000 unit) tablet RxNorm: 711023 Take 1 Tablet(s) Oral QD 07/08/19 021 Inactive isosorbide dinitrate 30 mg tablet RxNorm: 584384 Take 1 Tablet(s) Oral QD 07/08/19 021 Inactive Levemir FlexTouch U-100 Insulin 100 unit/mL (3 mL) subcutaneous pen RxNorm: 806420 Inject 140 Unit(s) Subcutaneous BID 07/08/19 021 Inactive torsemide 20 mg tablet RxNorm: 514496 Take 1 Tablet(s) Oral QD 07/08/19 023 Inactive venlafaxine 75 mg tablet RxNorm: 024571 Take 1 Tablet(s) Oral QD 07/08/19 021 Inactive acetaminophen 500 mg tablet RxNorm: 322838 Take 1 Tablet(s) Oral TID as needed for headache 06/18/19 021 Inactive acetaminophen 500 mg tablet RxNorm: 705344 Take 1 Tablet(s) Oral TID as needed for headache 06/18/19 021 Inactive Lyrica 100 mg capsule RxNorm: 064017 Take 1 Capsule(s) Oral QHS every night at bedtime 06/11/19 021 Inactive Lyrica 50 mg capsule RxNorm: 734963 Take 1 Capsule(s) Oral QAM every morning 06/10/19 21 021 Inactive hydrocortisone 2.5 % topical cream RxNorm: 674697 Apply to bilateral groin creases Topical BID 05/15/20 20 021 Inactive clotrimazole 1 % topical cream RxNorm: 092110 Apply to bilateral groin areas Topical BID 05/15/20 20 021 Inactive Lyrica 50 mg capsule RxNorm: 411747 Take 1 Capsule(s) Oral QAM every morning 05/14/20 20 020 Inactive Lyrica 100 mg capsule RxNorm: 565915 Take 1 Capsule(s) Oral QHS every night [...] Inactive Nystop 100,000 unit/gram topical powder RxNorm: 619706 Apply to abd folds, under breasts and L side of groin Topical BID x 14 days, then BID PRN 04/08/20 20 020 Inactive dx: yeast dermatitis Lyrica 100 mg capsule RxNorm: 452884 Take 1 Capsule(s) Oral QHS every night at bedtime 03/13/20 20 020 Inactive Lyrica 50 mg capsule RxNorm: 210967 Take 1 Capsule(s) Oral QAM every morning 03/13/20 20 020 Inactive ketoconazole 2 % shampoo RxNorm: 701272 Apply Topical two times a week with showers 03/11/20 20 024 Inactive cholecalciferol (vitamin D3) 50 mcg (2,000 unit) tablet RxNorm: 982303 Take 1 Tablet(s) Oral QD 03/11/20 021 Inactive Zetia 10 mg tablet RxNorm: 327160 Take 1 Tablet(s) Oral QD 03/07/20 021 Inactive Zetia 10 mg tablet RxNorm: 955510 Take 1 Tablet(s) Oral QD 03/07/20 Inactive Lyrica 50 mg capsule RxNorm: 173466 Take 1 Capsule(s) Oral QAM every morning 02/15/20 Inactive Lyrica 100 mg capsule RxNorm: 179594 Take 1 Capsule(s) Oral QHS every night at bedtime 02/15/20 Inactive Lyrica 100 mg capsule RxNorm: 790537 Take 1 Capsule(s) Oral QHS every night at bedtime 02/15/20 Inactive Lyrica 50 mg capsule RxNorm: 258181 Take 1 Capsule(s) Oral QAM every morning 02/15/20 Inactive metoprolol succinate ER 200 mg tablet,extended release 24 hr RxNorm: 166509 Take 1 Tablet(s) Oral QD 08/12/19 025 Inactive loperamide 2 mg capsule RxNorm: 821754 Take 1 Capsule(s) Oral QID as needed 09/06/19 025 Inactive hydralazine 50 mg tablet RxNorm: 987091 Take 1 Tablet(s) Oral QID 08/12/19 025 Inactive Soft Touch Lancets RxNorm: miscellaneous 03/04/20 24 025 Inactive venlafaxine ER 75 mg capsule,extended release 24 hr RxNorm: 018275 Take 3 Capsule(s) Oral QD 06/12/19 22 023 Inactive polyethylene glycol 3350 17 gram/dose oral powder RxNorm: 218617 Take 17=1 capful Gram(s) Oral BID as needed mix with 4-8oz of liquid 06/12/19 22 024 Inactive icosapent ethyl 1 gram capsule RxNorm: 8336912 Take 2 Capsule(s) (2 gm) Oral BID with meals 10/07/19 23 023 Inactive Okay to dispense one 2gm tab if you have that available. Levemir FlexTouch U-100 Insulin 100 unit/mL (3 mL) subcutaneous pen RxNorm: 479404 Inject 80 Unit(s) Subcutaneous BID 07/14/19 23 023 Inactive Novolog Flexpen U-100 Insulin aspart 100 unit/mL (3 mL) subcutaneous RxNorm: 0372414 Insert 30 Unit(s) Subcutaneous TID with meals [...] Notes Codes Status Date Referral: [facility] [address] [id number] [place] Referral Appointment Scheduled 10/20/20[address]: [facility]/Endocrinology WPtel: [address] [facility] 3 [id number] [place] Referral No Records Received 07/10/2024 Patient Education: Patient Medication Summary Completed 05/03/2024 Appointment: Brian Munson WPtel: [address] [place], [place] [id number] AWV 02/08/2024 Appointment: Brian Munson WPtel: [address] [place], [place] [id number] [place] F/U 01/11/2024 Appointment: Sandra Clark WPtel: [address] [place], [place] [phone] Telehealth Psych Follow Up 12/09 Appointment: Tapan Shirley WPtel: [address] [place], [place] [phone] TCM 10/26/2022 Referral: [facility] WPtel: [address], [address] [id number] [place] Referral Records Received 09/21/2022 Appointment: Tapan Shirley WPtel: [address] [place], [place] [phone] [place] F/U 08/11/2022 Appointment: Tapan Shirley WPtel: [address] [place] F/U 07/14/2022 Appointment: Tapan Shirley WPtel: [address] [facility] [address] [id number] F/U 02/10/2022 Referral: [facility] CARLO WPtel: [address] [id number] [place] Referral Completed 05/28/2021 Referral: General Cardiology [...] Sister Jyotsna involved in his care cell# [phone] Guardian: Giulia (tapan met in person 09/01/21), [...] 05.26.2024 with Jessa Webster MD at [facility]. Start Pioglitazone 15 mg QD. Stop Basaglar insulin. Increase Ozempic 2 mg once wkly. Continue Humalin R U-500 100 units with meals TID. FOLLOW UP 2 MONTHS. If BG >400 add 50 units to next scheduled dose of Humalin R U 500 insulin 06/12/2024
--- OUTSIDE RECORDS SUMMARY | 2024-10-19 19:33 | XMS_ITS | CCD ---
Author Name Cecilio Durham Address [address] [facility] [address] [place] [address] Phone Organization [facility] Phone Care Team Providers Care Devil Dog Name Role Phone Harrison Durham Primary Care Provider Leona vailable Unavailable Chronic Care Management Unavaila ble Summary Purpose DataExchange Insurance Providers Payer name Policy type / Coverage type Covered green party ID Effective Begin Date Effective End Date Medicare [place] Medicare Part B [id number] Unknown Unknown Medicaid [place] Medicare Part B [id number] Unknown Unknown Family history Sister Brittany Suggs Diagnosis Age At Onset No Family Disease Entered N/A Runs in the family Diagnosis Age At Onset No Known Diseases N/A Sister Blanka Mcduffie Diagnosis Age At Onset No Family Disease Entered N/A Social History Social History Element Codes Description Effec tive Dates Tobacco history SNOMED CT: 053466781 Never smoker 01/16 Sexually Active? 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 ICD-10: Z79.4 02/10 [...] Instructions nystatin 100,000 unit/gram topical powder RxNorm: 941217 Apply 1 Application Topical BID as needed abdominal/breast /groin folds 04/11/20 24 024 Inactive chlorthalidone 25 mg tablet RxNorm: 622874 Take 1 Tablet(s) Oral QAM every morning 04/06/20 24 No Stop Date Active pregabalin 150 mg capsule RxNorm: 071679 Take 1 Capsule(s) Oral QHS every night at bedtime 03/31/20 24 024 Inactive Vascepa 1 gram capsule RxNorm: 0038702 Take 2 Capsule(s) Oral BID 03/30/20 24 025 Active rosuvastatin 40 mg tablet RxNorm: 866012 1 TAB ORALLY EVERY EVENING (DX:CORONARY ARTERY DISEASE) 03/28/20 No Stop Date Active venlafaxine ER 75 mg capsule,extended release 24 hr RxNorm: 497745 3 CAPS (225MG) ORALLY DAILY (DX: MOOD DISORDER) 03/28/20 No Stop Date Active pregabalin 100 mg capsule RxNorm: 857279 Take 1 Capsule(s) Oral QAM every morning 03/20/20 Inactive cholecalciferol (vitamin D3) 1,250 mcg (50,000 unit) capsule RxNorm: 787545 Take 1 Capsule(s) Oral QW once a [...] Insulin 100 unit/mL (3 mL) subcutaneous RxNorm: 3025447 Inject 40 Unit(s) Subcutaneous BID 03/07/20 025 Inactive Please dispense one month supply. Humulin R U-500 (Concentrated) Insulin 500 unit/mL subcutaneous soln RxNorm: 436155 Inject 100 Unit(s) Subcutaneous AC before meals [...] PRN) to be use with new Accu [place] meter 03/04/20 Inactive ok to substitute with any covered alternative test strip FreeStyle Chema 2 Sensor kit RxNorm: Use UD as directed 03/02/20 025 Inactive FreeStyle Chema 2 Sensor kit RxNorm: Use UD as directed 03/02/20 Inactive Pen Needle 30 gauge x 516 RxNorm: Pen(s) Use 1 needle as directed TID 03/02/20 Inactive nystatin 100,000 unit/gram topical powder RxNorm: 255349 Apply 1 Application Topical BID as needed [...] (Concentrated) Insulin 500 unit/mL subcutaneous soln RxNorm: 525201 Inject 100 Unit(s) Subcutaneous TID 02/17/20 24 024 Inactive Humulin R U-500 (Concentrated) Insulin 500 unit/mL subcutaneous soln RxNorm: 683757 Inject 100 Unit(s) Subcutaneous TID 02/10/20 24 024 Inactive Basaglar KwikPen U-100 Insulin 100 unit/mL (3 mL) subcutaneous RxNorm: 3759382 Inject 30 Unit(s) Subcutaneous BID 02/10/20 24 024 Inactive Please dispense one month supply. pregabalin 100 mg capsule RxNorm: 421358 Take 1 Capsule(s) Oral QAM every morning 02/07/20 24 024 Inactive isosorbide mononitrate ER 60 mg tablet,extended release 24 hr RxNorm: 496555 Take 1 Tablet(s) Oral QD 02/01/20 24 Active aripiprazole 15 mg tablet RxNorm: 426541 Take 1/2 Tablet(s) Oral QD 02/01/20 24 Active torsemide 20 mg tablet RxNorm: 719511 1 TAB ORALLY DAILY (DX: EDEMA) 01/27/20 No Stop Date Active potassium chloride ER 20 mEq tablet,extended release(part/cryst) RxNorm: 0924115 2 TABS (40MEQ) ORALLY TWICE DAILY (DX: HYPOKALEMIA) 01/27/20 24 025 Inactive cephalexin 500 mg capsule RxNorm: 315208 Take 1 Capsule(s) Oral QID 12/17/19 24 024 Inactive cephalexin 500 mg capsule RxNorm: 084853 Take 1 Capsule(s) Oral QID 12/17/19 24 024 Inactive acetaminophen 500 mg tablet RxNorm: 001298 (MAX APAP:4GM/24HR) Take 1 Tablet(s) Oral TID as needed for pain 12/10/19 24 024 Inactive torsemide 20 mg tablet RxNorm: 883846 Take 1 Tablet(s) Oral QD 10/26/19 24 Inactive potassium chloride ER 20 mEq tablet,extended release RxNorm: 566043 Take 2 Tablet(s) Oral BID 10/26/19 24 025 Inactive torsemide 20 mg tablet RxNorm: 159762 Take 1 Tablet(s) Oral QD 10/26/19 24 024 Inactive potassium chloride ER 20 mEq tablet,extended release RxNorm: 092070 Take 2 Tablet(s) Oral BID 10/26/19 24 024 Inactive Artificial Tears (PF) 0.1 %-0.3 % drops in a dropperette RxNorm: 035993 Apply 1-2 Drop(s) Both eyes BID as needed 09/28/19 24 Inactive erythromycin 5 mg/gram (0.5 %) eye ointment RxNorm: 924084 Apply 1 Application Both eyes QHS every night at bedtime Instill ~1 cm ribbon into affected eye 09/28/19 24 024 Inactive Artificial Tears (PF) 0.1 %-0.3 % drops in a dropperette RxNorm: 937989 Apply 1-2 Drop(s) Both eyes BID as needed 09/28/19 24 024 Inactive erythromycin 5 mg/gram (0.5 %) eye ointment RxNorm: 935501 Apply 1 Application Both eyes QHS every night at bedtime Instill ~1 cm ribbon into affected eye 09/28/19 24 024 Inactive acetaminophen 500 mg tablet RxNorm: 506156 (MAX APAP:4GM/24HR) Take 1 Tablet(s) Oral TID as needed for pain 09/24/19 24 024 Inactive carvedilol 25 mg tablet RxNorm: 881085 Take 1 Tablet(s) Oral QD 09/08/19 No Stop Date Active pregabalin 100 mg capsule RxNorm: 371220 Take 1 Capsule(s) Oral QAM every morning 09/07/19 24 024 Inactive ezetimibe 10 mg tablet RxNorm: 611052 Take 1 Tablet(s) Oral QD 07/13/19 24 025 Inactive bisacodyl 10 mg rectal suppository RxNorm: 198542 Insert 1 Suppository Rectal QD as needed 07/13/19 No Stop Date Active polyethylene glycol 3350 17 gram/dose oral powder RxNorm: 957911 Take 17 Gram(s) Oral BID as needed mix in 4-8ox water 07/13/19 24 025 Inactive ketoconazole 2 % shampoo RxNorm: 674137 Apply 1 Application Topical UD as directed 07/13/19 No Stop Date Active Ozempic 1 mg/dose (4 mg/3 mL) subcutaneous pen injector RxNorm: 9577256 Inject 1 Milligram(s) Subcutaneous QW once a week 07/13/19 No Stop Date Active Guaifenesin AC 10 mg-100 mg/5 mL oral liquid RxNorm: 739702 Take 10 Milliliter(s) Oral Q4H every four hours as needed 07/13/19 No Stop Date Active ammonium lactate 12 % topical cream RxNorm: 695799 Apply 1 Application Topical BID 07/13/19 24 025 Inactive hydrocortisone 2.5 % topical cream RxNorm: 323185 Apply 1 Application Topical BID as needed 07/13/19 No Stop Date Active rosuvastatin 20 mg sprinkle capsule RxNorm: 7624878 Take 1 Capsule(s) Oral QD 07/13/19 24 025 Inactive rosuvastatin 40 mg tablet RxNorm: 396447 Take 1 Tablet(s) Oral QPM every evening 07/13/19 24 024 Inactive aripiprazole 15 mg tablet RxNorm: 729719 Take 1/2 Tablet(s) Oral QD 07/13/19 24 024 Inactive isosorbide mononitrate ER 60 mg tablet,extended release 24 hr RxNorm: 278154 Take 1 Tablet(s) Oral QD 07/13/19 24 024 Inactive Vascepa 1 gram capsule RxNorm: 5312651 Take 2 Capsule(s) Oral BID 07/13/19 24 024 Inactive venlafaxine ER 75 mg capsule,extended release 24 hr RxNorm: 231155 Take 3 Capsule(s) Oral QD 07/13/19 24 024 Inactive Basaglar KwikPen U-100 Insulin 100 unit/mL (3 mL) subcutaneous RxNorm: 4186194 Inject 30U SubQ twice daily 07/07/19 24 024 Inactive Please dispense one month supply. Basaglar KwikPen U-100 Insulin 100 unit/mL (3 mL) subcutaneous RxNorm: 1863868 Inject 30U SubQ twice daily 07/07/19 24 024 Inactive Please dispense one month supply. pregabalin 150 mg capsule RxNorm: 609707 Take 1 Capsule(s) Oral QHS every night at bedtime 07/05/19 24 024 Inactive pregabalin 150 mg capsule RxNorm: 202349 Take 1 Capsule(s) Oral QHS every night at bedtime 07/05/19 24 024 Inactive polyethylene glycol 3350 17 gram/dose oral powder RxNorm: 481675 Take 1 Packet Oral QD as needed (1 packet = 17g) mix with 4-8oz of liquid 06/15/19 024 Inactive bisacodyl 10 mg rectal suppository RxNorm: 665570 Insert one suppository per rectum once daily as needed for constipation 06/15/19 024 Inactive bisacodyl 10 mg rectal suppository RxNorm: 157074 Insert one suppository per rectum once daily as needed for constipation 06/15/19 024 Inactive pregabalin 100 mg capsule RxNorm: 584467 Take 1 Capsule(s) Oral QAM every morning 04/27/20 024 Inactive Levemir FlexPen 100 unit/mL (3 mL) solution subcutaneous insulin pen RxNorm: 517247 Inject 30 Unit(s) Subcutaneous BID 04/27/20 024 Inactive rosuvastatin 40 mg tablet RxNorm: 422729 Take 1 Tablet(s) Oral QPM every evening 04/16/20 024 Inactive D/C rosuvastatin 20mg venlafaxine ER 75 mg capsule,extended release 24 hr RxNorm: 583141 Take 3 Capsule(s) Oral QD 04/14/20 023 Inactive pregabalin 100 mg capsule RxNorm: 115070 Take 1 Capsule(s) Oral QAM every morning [...] strip clotrimazole 1 % topical cream RxNorm: 435362 Take apply topically to abdominal folds twice daily for 14 days 03/12/20 024 Inactive Ozempic 1 mg/dose (4 mg/3 mL) subcutaneous pen injector RxNorm: 5685893 Inject 1 Milligram(s) Subcutaneous QW once a week 03/11/20 23 023 Inactive rosuvastatin 20 mg tablet RxNorm: 110576 Take 1 Tablet(s) Oral QD 02/26/20 23 023 Inactive d/c pravastatin 80mg Ozempic 1 mg/dose (4 mg/3 mL) subcutaneous pen injector RxNorm: 9217183 Inject 1 Milligram(s) Subcutaneous QW once a week 02/20/20 23 023 Inactive pregabalin 150 mg capsule RxNorm: 526135 Take 1 Capsule(s) Oral HS at bed time 02/19/20 23 023 Inactive pregabalin 100 mg capsule RxNorm: 120855 Take 1 Capsule(s) Oral QAM every morning 02/18/20 023 Inactive venlafaxine ER 75 mg capsule,extended release 24 hr RxNorm: 961422 Take 3 Capsule(s) Oral QD 02/04/20 023 Inactive FreeStyle Chema 2 Sensor kit RxNorm: use as directed 02/04/20 23 023 Inactive FreeStyle Chema 2 Sensor kit RxNorm: use as directed 02/04/20 23 024 Inactive fluconazole 150 mg tablet RxNorm: 184226 Take 1 Tablet(s) Oral on day 3 and on day 6 02/03/20 23 024 Inactive venlafaxine ER 150 mg capsule,extended release 24 hr RxNorm: 553064 Take 1 Capsule(s) Oral QD 02/03/20 23 023 Inactive chlorthalidone 25 mg tablet RxNorm: 809953 Take 1 Tablet(s) Oral QAM every morning 02/03/20 23 024 Inactive acetaminophen 500 mg tablet RxNorm: 065530 1 TABLET ORALLY 3 TIMES DAILY (MAX APAP:4GM/24HR) 12/15/19 23 023 Inactive clotrimazole 1 % topical cream RxNorm: 454640 apply 1g topically to top of feet and in between toes BID 12/09/19 23 025 Inactive potassium chloride ER 20 mEq tablet,extended release RxNorm: 155073 Take 1 Tablet(s) Oral BID 12/09/19 024 Inactive d/c 20mEq once daily (sent from hospital) nystatin 100,000 unit/gram topical powder RxNorm: 419167 APPLY TO AFFECTED AREAS TOPICALLY 2 TIMES DAILY 11/21/19 23 023 Inactive Nystop 100,000 unit/gram topical powder RxNorm: 491327 Apply to abd folds, under breasts and L side of groin Topical BID x 14 days, then BID PRN 11/20/19 023 Inactive dx: yeast dermatitis [place] Ultra Strength 4 %-30 %-10 % topical cream RxNorm: 474027 Apply 1 Gram(s) Topical QID PRN to feet and legs for neuropathic pain 11/11/19 024 Inactive clotrimazole 1 % topical cream RxNorm: 860280 Apply 1/2 Gram(s) Topical BID Apply to affected areas of groin, periarea, and abdominal topically 2 times daily 11/10/19 023 Inactive hydrocortisone 2.5 % topical cream RxNorm: 729620 Apply 1/2 Gram(s) Topical BID as needed 11/10/19 024 Inactive Levemir FlexPen 100 unit/mL (3 mL) solution subcutaneous insulin pen RxNorm: 133033 Inject 30 Unit(s) Subcutaneous BID 10/07/19 023 Inactive Humulin R U-500 (Concentrated) Insulin 500 unit/mL subcutaneous soln RxNorm: 760741 Inject 100 Unit(s) Subcutaneous TID 10/07/19 024 Inactive Ozempic 0.25 mg or 0.5 mg (2 mg/3 mL) subcutaneous pen injector RxNorm: 8081563 Inject 1/2 Milligram(s) Subcutaneous QW once a week 10/07/19 024 Inactive aripiprazole 15 mg tablet RxNorm: 680174 1/2 TAB (7.5MG) ORALLY DAILY (DX:MAJOR DEPRESSIVE DISORDER) 09/23/19 023 Inactive Accu-Chek Guide test strips RxNorm: Use 1 Test Strip QID 09/15/19 23 023 Inactive ok to substitute with any covered alternative test strip Lancets,Thin 28 gauge RxNorm: Use 1 as directed QID 09/15/19 23 023 Inactive torsemide 20 mg tablet RxNorm: 221443 Take 1 Tablet(s) Oral BID 09/09/19 23 024 Inactive d/c once daily dosing carvedilol 25 mg tablet RxNorm: 089733 Take 1 Tablet(s) Oral QD 08/25/19 23 024 Inactive pregabalin 150 mg capsule RxNorm: 713155 1 Capsule(s) Oral HS at bed time 08/18/19 23 023 Inactive pregabalin 100 mg capsule RxNorm: 858188 1 Capsule(s) Oral QAM every morning 08/18/19 23 023 Inactive carvedilol 25 mg tablet RxNorm: 827392 1 Tablet(s) Oral QD 07/28/19 23 023 Inactive lisinopril 20 mg tablet RxNorm: 497178 Give 1 Tablet(s) Oral QD 07/28/19 23 023 Inactive Lyrica 150 mg capsule RxNorm: 836773 Take 1 Capsule(s) Oral QHS every night at bedtime 07/19/19 23 023 Inactive d/c 100mg dose Diflucan 150 mg tablet RxNorm: 795013 Take 1 Tablet(s) Oral QD repeat on day 3 and 6 07/19/19 23 023 Inactive pregabalin 100 mg capsule RxNorm: 085456 Take 1 Capsule(s) Oral QAM every morning 07/19/19 23 023 Inactive gatifloxacin 0.5 % eye drops RxNorm: 557181 Instill 1 Drop(s) as directed TID Instill 1 drop in to affected eye(s) starting 1 day prior to surgery and continue until gone (do not exceed 4 weeks). 07/13/19 23 023 Inactive carvedilol 25 mg tablet RxNorm: 783908 2 Tablet(s) Oral BID 07/13/19 23 023 Inactive Humulin R Regular U-100 Insulin 100 unit/mL injection solution RxNorm: 017808 85 Unit(s) Injection TID 07/13/19 23 023 Inactive ketorolac 0.5 % eye drops RxNorm: 231290 Instill 1 Drop(s) as directed QID Instill 1 drop into affected eye(s) 4 times daily starting 1 day prior to surgery and continue until gone (do not exceed 4 weeks). 07/13/19 23 023 Inactive Diflucan 150 mg tablet RxNorm: 125932 Take 1 Tablet(s) Oral QD repeat on day 3 and 6 06/30/19 23 023 Inactive Accu-Chek Guide test strips RxNorm: Use 1 Test Strip QID Use 1 test strip to monitor blood glucose 4 times daily and as needed. Dx:E11.42. 06/23/19 23 023 Inactive ok to substitute with any covered alternative test strip dextromethorphan-gu aifenesin 10 mg-100 mg/5 mL oral liquid RxNorm: 767189 Take 10 Milliliter(s) Oral every 4 hours as needed for cough 06/19/19 23 023 Inactive dextromethorphan-gu aifenesin 10 mg-100 mg/5 mL oral liquid RxNorm: 246718 Take 10 Milliliter(s) Oral every 4 hours as needed for cough 06/19/19 23 023 Inactive Lyrica 150 mg capsule RxNorm: 906034 Take 1 Capsule(s) Oral QHS every night at bedtime 06/18/19 23 023 Inactive d/c 100mg dose aripiprazole 15 mg tablet RxNorm: 596947 /2 TAB (7.5MG) ORALLY DAILY (DX:MAJOR DEPRESSIVE DISORDER) 06/05/19 23 023 Inactive pregabalin 100 mg capsule RxNorm: 793226 1 Capsule(s) Oral QAM every morning 06/02/19 23 023 Inactive Banophen 50 mg capsule RxNorm: 8225288 Take 1 Capsule(s) Oral Q6H every 6 hours as needed 05/19/19 23 No Stop Date Active Novolog Flexpen U-100 Insulin aspart 100 unit/mL (3 mL) subcutaneous RxNorm: 1147055 Inject 10 Unit(s) Subcutaneous QHS every night at bedtime with nighttime snack 04/08/20 Inactive Novolog Flexpen U-100 Insulin aspart 100 unit/mL (3 mL) subcutaneous RxNorm: 5859881 Inject 42 Unit(s) Subcutaneous TID in addition to sliding scale 04/08/20 Inactive d/c 36u albuterol sulfate HFA 90 mcg/actuation aerosol inhaler RxNorm: 9846206 Take 2 Puff(s) Inhalation Q4H every four hours as needed as needed for SOB, cough, or wheezing 04/07/20 030 Active Banophen 50 mg capsule RxNorm: 0533291 Take 1 Capsule(s) Oral Q6H every 6 hours as needed 04/06/20 023 Inactive diphenhydramine 50 mg tablet RxNorm: 3557874 Take 1 Tablet(s) Oral Q6H every 6 hours as needed 04/06/20 022 Inactive diphenhydramine 50 mg tablet RxNorm: 1330647 1 Tablet(s) Oral Q6H every 6 hours as needed 04/06/20 022 Inactive Abilify 15 mg tablet RxNorm: 246384 1/2 Tablet(s) Oral QD 03/10/20 023 Inactive Shingrix (PF) 50 mcg/0.5 mL intramuscular suspension, kit RxNorm: 3480780 Administer 1/2 Milliliter(s) Intramuscular QD one time shingrix step 2 ( step 1 given 11/04/21) WITH needle - Nursing please administer upon arrival and once administered post a bridge message with date of administration, reordering clerk, expiration date, and lot# so we can update [facility] 02/18/20 22 022 Inactive dispense with needle Shingrix (PF) 50 mcg/0.5 mL intramuscular suspension, kit RxNorm: 5852545 Administer 1/2 Milliliter(s) Intramuscular QD one time shingrix step 2 ( step 1 given 11/04/21) WITH needle - Nursing please administer upon arrival and once administered post a bridge message with date of administration, reordering clerk, expiration date, and lot# so we can update [facility] 02/18/20 22 022 Inactive dispense with needle polyethylene glycol 3350 17 gram/dose oral powder RxNorm: 711674 Take 17=1 capful Gram(s) Oral QD mix with 4-8oz of liquid 01/08/20 22 025 Inactive take this in addition to BID prn order Lyrica 100 mg capsule RxNorm: 083947 Take 1 Capsule(s) Oral QAM every morning 01/08/20 22 022 Inactive d/c 50mg dose acetaminophen 500 mg tablet RxNorm: 077143 Take 1 Tablet(s) Oral TID 01/08/20 22 022 Inactive d/c PRN order Lyrica 150 mg capsule RxNorm: 597535 Take 1 Capsule(s) Oral QHS every night at bedtime 01/08/20 22 023 Inactive d/c 100mg dose Abilify 5 mg tablet RxNorm: 615766 Take 1 Tablet(s) Oral QD take 1 tab po QD #30 refill 5 dx: MDD 12/12/19 22 022 Inactive Abilify 5 mg tablet RxNorm: 095492 Take 1 Tablet(s) Oral QD take 1 tab po QD #30 refill 5 dx: MDD 12/12/19 22 022 Inactive Novolog Flexpen U-100 Insulin aspart 100 unit/mL (3 mL) subcutaneous RxNorm: 6013712 Inject 42 Unit(s) Subcutaneous TID in addition to sliding scale 12/10/19 22 022 Inactive d/c 36u chlorthalidone 25 mg tablet RxNorm: 495077 Take 1 Tablet(s) Oral QAM every morning 12/10/19 22 023 Inactive pregabalin 50 mg capsule RxNorm: 359229 Take 1 Capsule(s) Oral QAM every morning 11/12/19 22 022 Inactive tetanus-diphtheria toxoids-Td 2 Lf unit-2 Lf unit/0.5 mL IM suspension RxNorm: 139 Take 0.5 Miscellaneous Intramuscular 11/12/19 22 022 Inactive need tdap - nursing to administer upon arrival pregabalin 50 mg capsule RxNorm: 854632 Take 1 Capsule(s) Oral QAM every morning 10/16/19 22 022 Inactive pregabalin 50 mg capsule RxNorm: 056051 Take 1 Capsule(s) Oral QAM every morning 10/16/19 22 Inactive pregabalin 50 mg capsule RxNorm: 426843 1 Capsule(s) Oral QAM every morning 10/15/19 22 Inactive Shingrix (PF) 50 mcg/0.5 mL intramuscular suspension, kit RxNorm: 6559507 Administer 1/2 Milliliter(s) Intramuscular one time Nursing please administer upon arrival and once administered post a bridge message with date of administration, reordering clerk, expiration date, and lot# so we can update [facility]. 10/09/19 22 022 Inactive shingrix step 1 Shingrix (PF) 50 mcg/0.5 mL intramuscular suspension, kit RxNorm: 8482030 Administer 1/2 Milliliter(s) Intramuscular one time Nursing please administer upon arrival and once administered post a bridge message with date of administration, reordering clerk, expiration date, and lot# so we [...] aspart 100 unit/mL (3 mL) subcutaneous RxNorm: 5255856 Inject 10 Unit(s) Subcutaneous QHS every night at bedtime with nighttime snack 10/08/19 22 022 Inactive Shingrix (PF) 50 mcg/0.5 mL intramuscular suspension, kit RxNorm: 1491213 ADMINISTER 2-DOSE SERIES PER CDC GUIDELINES 10/08/19 22 022 Active Shingrix (PF) 50 mcg/0.5 mL intramuscular suspension, kit RxNorm: 0225593 ADMINISTER 2-DOSE SERIES PER CDC GUIDELINES 10/08/19 22 Inactive Novolog Flexpen U-100 Insulin aspart 100 unit/mL (3 mL) subcutaneous RxNorm: 4202548 Inject 36 Unit(s) Subcutaneous TID in addition to sliding scale 10/08/19 022 Inactive cholecalciferol (vitamin D3) 1,250 mcg (50,000 unit) capsule RxNorm: 415481 Take 1 Capsule(s) Oral QW once a week 10/08/19 Inactive Novofine Autocover 30 gauge x 1/3 needle RxNorm: Use 1 Miscellaneous UD as directed Use 1 needle as directed to administer insulin 5 times a day Dx:E11.42. 10/03/19 Inactive ok to substitute with any covered alternative pen needle benzoyl peroxide 10 % topical cleanser RxNorm: 994333 Apply 1 Application Topical QD apply to face, wash rinse and dry once daily (may change to QOD if drying) 08/19/19 22 022 Inactive (%covered by insurance) #60ml refill 11 dx: acne benzoyl peroxide 10 % topical cleanser RxNorm: 949313 Apply 1 Application Topical QD apply to face, wash rinse and dry once daily (may change to QOD if drying) 08/19/19 022 Inactive (%covered by insurance) #60ml refill 11 dx: acne benzoyl peroxide 10 % topical cleanser RxNorm: 755253 Apply 1 Application Topical QD apply to face, wash rinse and dry once daily (may change to QOD if drying) 08/19/19 22 022 Inactive (%covered by insurance) #60ml refill 11 dx: acne Lyrica 50 mg capsule RxNorm: 158475 Take 1 Capsule(s) Oral QAM every morning Take 1 capsule by mouth once daily 08/19/19 22 022 Inactive benzoyl peroxide 10 % topical cleanser RxNorm: 458266 Apply 1 Application Topical QD apply to face, wash rinse and dry once daily (may change to QOD if drying) 08/19/19 22 022 Inactive (%covered by insurance) #60ml refill 11 dx: acne Lyrica 100 mg capsule RxNorm: 826121 Take 1 Capsule(s) Oral QHS every night at bedtime Take 1 capsule by mouth once daily at bedtime 08/19/19 22 022 Inactive Lyrica 100 mg capsule RxNorm: 294213 Take 1 Capsule(s) Oral QHS every night at bedtime Take 1 capsule by mouth once daily at bedtime 08/16/19 22 022 Inactive Lyrica 50 mg capsule RxNorm: 303877 Take 1 Capsule(s) Oral QAM every morning Take 1 capsule by mouth once daily 08/16/19 22 022 Inactive Levemir FlexTouch U-100 Insulin 100 unit/mL (3 mL) subcutaneous pen RxNorm: 869017 Inject 86 Unit(s) Subcutaneous BID 08/05/19 22 022 Inactive d/c 83units BID Lyrica 100 mg capsule RxNorm: 815955 Take 1 Capsule(s) Oral QHS every night at bedtime Take 1 capsule by mouth once daily at bedtime 07/14/19 22 022 Inactive Lyrica 50 mg capsule RxNorm: 291156 Take 1 Capsule(s) Oral QAM every morning Take 1 capsule by mouth once daily 07/14/19 22 022 Inactive Levemir FlexTouch U-100 Insulin 100 unit/mL (3 mL) subcutaneous pen RxNorm: 985871 Inject 83 Unit(s) Subcutaneous BID 07/08/19 22 [...] test strip hydralazine 50 mg tablet RxNorm: 261195 Take 1 Tablet(s) Oral QID 05/05/20 21 022 Inactive venlafaxine ER 225 mg tablet,extended release 24 hr RxNorm: 150953 Take 1 Tablet(s) Oral QD 05/05/20 21 021 Inactive venlafaxine ER 225 mg tablet,extended release 24 hr RxNorm: 328369 Take 1 Tablet(s) Oral QD 05/05/20 21 022 Inactive isosorbide mononitrate ER 30 mg tablet,extended release 24 hr RxNorm: 997593 Take 1 Tablet(s) Oral QD 05/05/20 21 024 Inactive hydralazine 50 mg tablet RxNorm: 533816 Take 1 Tablet(s) Oral QID 05/05/20 21 021 Inactive aspirin 81 mg tablet,delayed release RxNorm: 682794 Take 1 Tablet(s) Oral QD 03/31/20 21 022 Inactive Vitamin D2 1,250 mcg (50,000 unit) capsule RxNorm: 7844340 Take 1 Capsule(s) Oral QW once a week x 12 weeks 03/31/20 022 Inactive Vitamin D2 1,250 mcg (50,000 unit) capsule RxNorm: 8518761 Take 1 Capsule(s) Oral QW once a week 03/31/20 Inactive Zetia 10 mg tablet RxNorm: 167780 Take 1 Tablet(s) Oral QD 03/31/20 024 Inactive Zetia 10 mg tablet RxNorm: 343284 Take 1 Tablet(s) Oral QD 03/31/20 021 Inactive hydralazine 25 mg tablet RxNorm: 742881 Take 1 Tablet(s) Oral QID 03/31/20 021 Inactive hydralazine 25 mg tablet RxNorm: 870323 Take 1 Tablet(s) Oral QID 03/31/20 021 Inactive hydralazine 10 mg tablet RxNorm: 523994 Take 1 Tablet(s) Oral QID 03/03/20 021 Inactive cephalexin 500 mg tablet RxNorm: 697487 Take 1 Tablet(s) Oral QID 02/27/20 021 Inactive cephalexin 500 mg tablet RxNorm: 999562 Take 1 Tablet(s) Oral QID 02/27/20 021 Inactive lisinopril 40 mg tablet RxNorm: 454146 Take 1 Tablet(s) Oral QD 02/11/20 21 023 Inactive Eliquis 5 mg tablet RxNorm: 0331467 Take 1 Tablet(s) Oral BID 01/05/20 21 025 Inactive Eliquis 5 mg tablet RxNorm: 7096858 Take 2 Tablet(s) Oral QD 01/01/20 21 021 Inactive Lyrica 50 mg capsule RxNorm: 876309 Take 1 Capsule(s) Oral QAM every morning 12/24/19 21 021 Inactive Lyrica 100 mg capsule RxNorm: 460262 Take 1 Capsule(s) Oral QHS every night at bedtime 12/24/19 21 021 Inactive clotrimazole 1 % topical cream RxNorm: 332999 Apply to right foot and toes Topical BID 12/04/19 21 023 Inactive metoprolol succinate ER 200 mg tablet,extended release 24 hr RxNorm: 766046 Take 1 Tablet(s) Oral QD 12/04/19 21 023 Inactive ciprofloxacin 500 mg tablet RxNorm: 468227 Take 1 Tablet(s) Oral QD 11/30/19 21 021 Inactive DX ofloxacin otic drops Accu-Chek Guide test strips RxNorm: USE 1 TO CHECK GLUCOSE 4 TIMES DAILY AND NEEDED 11/15/19 21 023 Inactive Blood Glucose Test strips RxNorm: Use 1 Test Strip QID at PRN 11/05/19 21 023 Inactive E11.42 lisinopril 30 mg tablet RxNorm: 692000 Take 1 Tablet(s) Oral QD 10/30/19 21 021 Inactive lisinopril 20 mg tablet RxNorm: 514042 Take 1 Tablet(s) Oral QD 10/23/19 21 021 Inactive lisinopril 20 mg tablet RxNorm: 783192 Take 1 Tablet(s) Oral QD 10/23/19 21 021 Inactive lisinopril 10 mg tablet RxNorm: 378890 Take 1 Tablet(s) Oral QD 10/02/19 21 021 Inactive icosapent ethyl 1 gram capsule RxNorm: 6341761 Take 2 Capsule(s) (2 gm) Oral BID with meals 09/12/19 21 024 Inactive Okay to dispense one 2gm tab if you have that available. icosapent ethyl 1 gram capsule RxNorm: 3946628 Take 2 Capsule(s) Oral BID 09/12/19 21 021 Inactive Okay to dispense one 2gm tab if you have that available. amlodipine 10 mg tablet RxNorm: 193720 Take 1 Tablet(s) Oral QD 09/04/19 21 021 Inactive aspirin 81 mg tablet,delayed release RxNorm: 719902 Take 1 Tablet(s) Oral QD 09/04/19 21 021 Inactive Levemir FlexTouch U-100 Insulin 100 unit/mL (3 mL) subcutaneous pen RxNorm: 126681 Inject 150 Unit(s) Subcutaneous BID 09/04/19 022 Inactive venlafaxine ER 150 mg tablet,extended release 24 hr RxNorm: 267906 Take 1 Tablet(s) Oral QD 09/04/19 021 Inactive clotrimazole-betame thasone 1 %-0.05 % topical cream RxNorm: 099375 Apply to rash on red area on left abdomen/chest Topical BID 08/10/19 021 Inactive amlodipine 5 mg tablet RxNorm: 273505 Take 1 Tablet(s) Oral QD 07/31/19 021 Inactive cephalexin 500 mg tablet RxNorm: 799651 Take 1 Tablet(s) Oral BID BID - Twice Daily 07/31/19 021 Inactive Start 08/01/20 pantoprazole 40 mg tablet,delayed release RxNorm: 523129 Take 1 Tablet(s) Oral QAM every morning 07/08/19 025 Inactive senna 8.6 mg tablet RxNorm: 235050 Take 1 Tablet(s) Oral QD 07/08/19 025 Inactive carbamazepine 200 mg tablet RxNorm: 204571 Take 1 Tablet(s) Oral BID 07/08/19 025 Inactive clopidogrel 75 mg tablet RxNorm: 948317 Take 1 Tablet(s) Oral QD 07/08/19 021 Inactive Blood Glucose Test strips RxNorm: Use 1 Test Strip QID at PRN 07/08/19 021 Inactive E11.42 Novolog Flexpen U-100 Insulin aspart 100 unit/mL (3 mL) subcutaneous RxNorm: 8131465 Administer per sliding scale Milliliter(s) Subcutaneous TID 151-200: 10 u; 201-250: 20 u; 251-300: 30 u; 301-350: 40 u; 351-400: 50 u. 07/08/19 21 022 Inactive lisinopril 5 mg tablet RxNorm: 886654 Take 1 Tablet(s) Oral QD 07/08/19 021 Inactive Novolog Flexpen U-100 Insulin aspart 100 unit/mL (3 mL) subcutaneous RxNorm: 0472860 Inject 85 Unit(s) Subcutaneous TID 07/08/19 022 Inactive pravastatin 80 mg tablet RxNorm: 634439 Take 1 Tablet(s) Oral QHS every night at bedtime 07/08/19 023 Inactive clotrimazole 1 % topical cream RxNorm: 513216 Apply to bilateral groin areas Topical BID 07/08/19 022 Inactive metoprolol succinate ER 200 mg tablet,extended release 24 hr RxNorm: 903667 Take 1 Tablet(s) Oral QD 07/08/19 21 021 Inactive Vitamin D3 25 mcg (1,000 unit) tablet RxNorm: 091116 Take 1 Tablet(s) Oral QD 07/08/19 021 Inactive isosorbide dinitrate 30 mg tablet RxNorm: 130223 Take 1 Tablet(s) Oral QD 07/08/19 021 Inactive Levemir FlexTouch U-100 Insulin 100 unit/mL (3 mL) subcutaneous pen RxNorm: 889581 Inject 140 Unit(s) Subcutaneous BID 07/08/19 021 Inactive torsemide 20 mg tablet RxNorm: 353816 Take 1 Tablet(s) Oral QD 07/08/19 023 Inactive venlafaxine 75 mg tablet RxNorm: 529315 Take 1 Tablet(s) Oral QD 07/08/19 021 Inactive acetaminophen 500 mg tablet RxNorm: 016600 Take 1 Tablet(s) Oral TID as needed for headache 06/18/19 021 Inactive acetaminophen 500 mg tablet RxNorm: 401334 Take 1 Tablet(s) Oral TID as needed for headache 06/18/19 021 Inactive Lyrica 100 mg capsule RxNorm: 052953 Take 1 Capsule(s) Oral QHS every night at bedtime 06/11/19 021 Inactive Lyrica 50 mg capsule RxNorm: 872380 Take 1 Capsule(s) Oral QAM every morning 06/10/19 21 021 Inactive hydrocortisone 2.5 % topical cream RxNorm: 592232 Apply to bilateral groin creases Topical BID 05/15/20 20 021 Inactive clotrimazole 1 % topical cream RxNorm: 917289 Apply to bilateral groin areas Topical BID 05/15/20 20 021 Inactive Lyrica 50 mg capsule RxNorm: 176198 Take 1 Capsule(s) Oral QAM every morning 05/14/20 20 020 Inactive Lyrica 100 mg capsule RxNorm: 195138 Take 1 Capsule(s) Oral QHS every night [...] Inactive Nystop 100,000 unit/gram topical powder RxNorm: 503284 Apply to abd folds, under breasts and L side of groin Topical BID x 14 days, then BID PRN 04/08/20 20 020 Inactive dx: yeast dermatitis Lyrica 100 mg capsule RxNorm: 419398 Take 1 Capsule(s) Oral QHS every night at bedtime 03/13/20 20 020 Inactive Lyrica 50 mg capsule RxNorm: 362383 Take 1 Capsule(s) Oral QAM every morning 03/13/20 20 020 Inactive ketoconazole 2 % shampoo RxNorm: 628214 Apply Topical two times a week with showers 03/11/20 20 024 Inactive cholecalciferol (vitamin D3) 50 mcg (2,000 unit) tablet RxNorm: 097714 Take 1 Tablet(s) Oral QD 03/11/20 021 Inactive Zetia 10 mg tablet RxNorm: 623576 Take 1 Tablet(s) Oral QD 03/07/20 021 Inactive Zetia 10 mg tablet RxNorm: 262483 Take 1 Tablet(s) Oral QD 03/07/20 Inactive Lyrica 50 mg capsule RxNorm: 034510 Take 1 Capsule(s) Oral QAM every morning 02/15/20 Inactive Lyrica 100 mg capsule RxNorm: 846679 Take 1 Capsule(s) Oral QHS every night at bedtime 02/15/20 Inactive Lyrica 100 mg capsule RxNorm: 671785 Take 1 Capsule(s) Oral QHS every night at bedtime 02/15/20 Inactive Lyrica 50 mg capsule RxNorm: 902457 Take 1 Capsule(s) Oral QAM every morning 02/15/20 Inactive metoprolol succinate ER 200 mg tablet,extended release 24 hr RxNorm: 213439 Take 1 Tablet(s) Oral QD 08/12/19 025 Inactive loperamide 2 mg capsule RxNorm: 473829 Take 1 Capsule(s) Oral QID as needed 09/06/19 025 Inactive hydralazine 50 mg tablet RxNorm: 290047 Take 1 Tablet(s) Oral QID 08/12/19 025 Inactive Soft Touch Lancets RxNorm: miscellaneous 03/04/20 24 025 Inactive venlafaxine ER 75 mg capsule,extended release 24 hr RxNorm: 549494 Take 3 Capsule(s) Oral QD 06/12/19 22 023 Inactive polyethylene glycol 3350 17 gram/dose oral powder RxNorm: 740646 Take 17=1 capful Gram(s) Oral BID as needed mix with 4-8oz of liquid 06/12/19 22 024 Inactive icosapent ethyl 1 gram capsule RxNorm: 9228677 Take 2 Capsule(s) (2 gm) Oral BID with meals 10/07/19 23 023 Inactive Okay to dispense one 2gm tab if you have that available. Levemir FlexTouch U-100 Insulin 100 unit/mL (3 mL) subcutaneous pen RxNorm: 649498 Inject 80 Unit(s) Subcutaneous BID 07/14/19 23 023 Inactive Novolog Flexpen U-100 Insulin aspart 100 unit/mL (3 mL) subcutaneous RxNorm: 9838858 Insert 30 Unit(s) Subcutaneous TID with meals [...] Planned Activity Notes Codes Status Date Referral: [facility] [address] [id number] [place] Referral Appointment Scheduled 10/20/[address]: [facility]/Endocrinology WPtel: [address] [facility] 3 [id number] [place] Referral No Records Received 07/10/2024 Patient Education: Patient Medication Summary Completed 04/11/2024 Appointment: Brian Munson WPtel: [address] [place], [place] [id number] AWV 02/08/2024 Appointment: Brian Munson WPtel: [address] [place], [place] [id number] [place] F/U 01/11/2024 Appointment: Sandra Clrak WPtel: [address] [place], [place] [phone] Telehealth Psych Follow Up 12/09 Appointment: Tapan Shirley WPtel: [address] [place], [place] [phone] TCM 10/26/2022 Referral: [facility] WPtel: [phone], [address] [id number] [place] Referral Records Received 09/21/2022 Appointment: Tapan Shirley WPtel: [address] [place], [place] [id number] [place] F/U 08/11/2022 Appointment: Tapan Shirley WPtel: [phone] [place] F/U 07/14/2022 Appointment: Tapan Shirley WPtel: [address] [facility] [address] [id number] F/U 02/10/2022 Referral: [facility] CARLO WPtel: [address] [id number] [place] Referral Completed 05/28/2021 Referral: General Cardiology [...] Sister Jyotsna involved in his care cell# [phone] Guardian: Giulia (tapan met in person 09/01/21), [...] appointment 05.26.2024 with Jessa Webster MD at [facility]. Start Pioglitazone 15 mg QD. Stop Basaglar insulin. Increase Ozempic 2 mg once wkly. Continue Humalin R U-500 100 units with meals TID. FOLLOW UP 2 MONTHS. If BG >400 add 50 units to next scheduled dose of Humalin R U 500 insulin 06/12/2024
--- OUTSIDE RECORDS SUMMARY | 2024-10-19 19:35 | XMS_ITS | CCD ---
Author Name Cecilio Durham Address [address] [facility] [address] [place] [address] Phone Organization [facility] Phone Care Team Providers Care Transmission Specialist Name Role Phone Harrison Durham Primary Care Provider Leona vailable Unavailable Chronic Care Management Unavaila ble Summary Purpose DataExchange Insurance Providers Payer name Policy type / Coverage type Covered constitution party ID Effective Begin Date Effective End Date Medicare [place] Medicare Part B [id number] Unknown Unknown [place] Medicare Part B [id number] Unknown Unknown Family history Sister Brittany Suggs [...] on file 07/11/[address]: 963713266 Never smoker 01/16 Sexually Active? 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 ICD-10: K59.01 ICD-9: 564.01 09/05/2024 Active Hypokalemia ICD-10: E87.6 ICD-9: 276.8 09/05/[address] stools SNOMED CT: 664946126 ICD-10: R19.5 ICD-9: 787.7 09/05/2024 Active Stage 2 chronic kidney disea se due to type 2 diabetes mellitus ICD-10: E11.22 ICD-9: 250.40 09/05/2024 Active Type 2 diabetes mellitus wit h diabetic polyneuropathy, with long-term current use of insulin ICD-10: E11.42 ICD-9: 250.60 09/05/2024 Active Body mass index [BMI] 60.0-69.9, adult SNOMED CT: 061601192 ICD-10: Z68.44 ICD-9: V85.44 08/08/2024 Active Mixed incontinence SNOMED CT: 18173939 ICD-10: N39.46 ICD-9: 788.33 08/08/2024 Active Diabetic [...] 701.9 09/07/2023 Resolved Coronary artery disease involving picayune coronary artery of picayune heart, angina presence unspecified ICD-10: I25.10 ICD-9: [...] ICD-10: Z23 ICD-9: V03.89 02/10/2022 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 Do not administer until after 3 loose stools. 09/06/19 026 Active pioglitazone 15 mg tablet RxNorm: 898839 Take 1 Tablet(s) Oral QD 09/06/19 No Stop Date Active loperamide 2 mg tablet RxNorm: 705884 Take 2 Tablet(s) Oral UD as directed as needed 2 tabs after first loose stool then 1 tab after each subsequent stool PRN Do not exceed 4 doses in 24 hours. Do not administer until after 3 loose stools. 09/06/19 025 Inactive pregabalin 100 mg capsule RxNorm: 880273 1 CAPSULE BY MOUTH EVERY MORNING (DX: NEUROPATHY) 08/23/19 25 025 Active FACILITY IS REQUESTING REFILL. PRIOR RX HAS BEEN EXHAUSTED. THANK YOU. pregabalin 150 mg capsule RxNorm: 566171 1 CAPSULE BY MOUTH AT BEDTIME (DX: NEUROPATHY) 08/21/19 25 025 Active FACILITY IS REQUESTING A REFILL OF THIS MEDICATION, THANK YOU! senna 8.6 mg tablet RxNorm: 667496 Take 1 Tablet(s) Oral QD as needed for constipation on day 2 of no bowel movement 08/09/19 25 025 Inactive Miralax 17 gram/dose oral powder RxNorm: 448846 Administer 17 Gram(s) Oral QD as needed for constipation on day 3 of no bowel movement 08/09/19 25 025 Inactive senna 8.6 mg tablet RxNorm: 893731 Take 1 Tablet(s) Oral QD as needed for constipation on day 2 of no bowel movement 08/09/19 25 025 Inactive Miralax 17 gram/dose oral powder RxNorm: 402444 Administer 17 Gram(s) Oral QD as needed for constipation on day 3 of no bowel movement 08/09/19 25 025 Inactive pregabalin 100 mg capsule RxNorm: 985551 Take 1 Capsule(s) Oral QAM every morning [...] (Concentrated) Insulin 500 unit/mL subcutaneous soln RxNorm: 756365 Inject 100 Unit(s) Subcutaneous AC before meals Three times daily before meals. 07/24/19 25 025 Inactive ammonium lactate 12 % topical cream RxNorm: 010456 Apply 1 Application Topical BID 07/20/19 No Stop Date Active ezetimibe 10 mg tablet RxNorm: 150955 Take 1 Tablet(s) Oral QD 07/18/19 25 No Stop Date Active senna 8.6 mg tablet RxNorm: 367956 Take 1 Tablet(s) Oral QD 07/18/19 25 025 Inactive metoprolol succinate ER 200 mg tablet,extended release 24 hr RxNorm: 137373 Take 1 Tablet(s) Oral QD 06/19/19 25 No Stop Date Active pantoprazole 40 mg tablet,delayed release RxNorm: 523473 Take 1 Tablet(s) Oral QAM every morning 06/19/19 25 No Stop Date Active hydralazine 50 mg tablet RxNorm: 415774 Take 1 Tablet(s) Oral QID 06/19/19 25 No Stop Date Active carbamazepine 200 mg tablet RxNorm: 822233 Take 1 Tablet(s) Oral BID 06/19/19 25 No Stop Date Active amlodipine 10 mg tablet RxNorm: 760140 Take 1 Tablet(s) Oral QD 06/19/19 25 No Stop Date Active Eliquis 5 mg tablet RxNorm: 5430738 Take 1 Tablet(s) Oral BID 06/19/19 25 No Stop Date Active pen needle, diabetic 30 gauge x 3/16 RxNorm: Use 1 6 times per day w/insulin 06/14/19 25 026 Active pen needle, diabetic 30 gauge x 3/16 RxNorm: Use 1 needle 6 times per day w/insulin 06/14/19 25 025 Inactive nystatin 100,000 unit/gram topical powder RxNorm: 027212 Apply 1 Application Topical BID as needed abdominal/breast /groin folds 05/24/19 25 026 Active pregabalin 100 mg capsule RxNorm: 251977 Take 1 Capsule(s) Oral QAM every morning 05/22/19 25 025 Inactive nystatin 100,000 unit/gram topical powder RxNorm: 755653 Apply 1 Application Topical BID as needed abdominal/breast /groin folds 04/11/20 24 024 Inactive chlorthalidone 25 mg tablet RxNorm: 648621 Take 1 Tablet(s) Oral QAM every morning 04/06/20 24 No Stop Date Active pregabalin 150 mg capsule RxNorm: 465249 Take 1 Capsule(s) Oral QHS every night at bedtime 03/31/20 24 024 Inactive Vascepa 1 gram capsule RxNorm: 1074174 Take 2 Capsule(s) Oral BID 03/30/20 24 025 Active rosuvastatin 40 mg tablet RxNorm: 178659 1 TAB ORALLY EVERY EVENING (DX:CORONARY ARTERY DISEASE) 03/28/20 24 No Stop Date Active venlafaxine ER 75 mg capsule,extended release 24 hr RxNorm: 868912 3 CAPS (225MG) ORALLY DAILY (DX: MOOD DISORDER) 03/28/20 24 No Stop Date Active pregabalin 100 mg capsule RxNorm: 171112 Take 1 Capsule(s) Oral QAM every morning 03/20/20 24 024 Inactive cholecalciferol (vitamin D3) 1,250 mcg (50,000 unit) capsule RxNorm: 274582 Take 1 Capsule(s) Oral QW once a [...] substitute with any covered alternative test strip Tusharaglar KwikPen U-100 Insulin 100 unit/mL (3 mL) subcutaneous RxNorm: 2815747 Inject 40 Unit(s) Subcutaneous BID 03/07/20 Inactive Please dispense one month supply. Humulin R U-500 (Concentrated) Insulin 500 unit/mL subcutaneous soln RxNorm: 103114 Inject 100 Unit(s) Subcutaneous AC before meals [...] PRN) to be use with new Accu Jayess meter 03/04/20 024 Inactive ok to substitute with any covered alternative test strip FreeStyle Chema 2 Sensor kit RxNorm: Use UD as directed 10/17/20 24 10/17/2 024 Inactive Pen Needle 30 gauge x 16 RxNorm: Pen(s) Use 1 needle as directed TID 03/02/20 24 Inactive nystatin 100,000 unit/gram topical powder RxNorm: 641009 Apply 1 Application Topical BID as needed [...] (Concentrated) Insulin 500 unit/mL subcutaneous soln RxNorm: 507607 Inject 100 Unit(s) Subcutaneous TID 02/17/20 24 024 Inactive Humulin R U-500 (Concentrated) Insulin 500 unit/mL subcutaneous soln RxNorm: 279968 Inject 100 Unit(s) Subcutaneous TID 02/10/20 24 024 Inactive Basaglar KwikPen U-100 Insulin 100 unit/mL (3 mL) subcutaneous RxNorm: 2698397 Inject 30 Unit(s) Subcutaneous BID 02/10/20 24 024 Inactive Please dispense one month supply. pregabalin 100 mg capsule RxNorm: 604361 Take 1 Capsule(s) Oral QAM every morning 02/07/20 24 024 Inactive isosorbide mononitrate ER 60 mg tablet,extended release 24 hr RxNorm: 425139 Take 1 Tablet(s) Oral QD 02/01/20 24 025 Active aripiprazole 15 mg tablet RxNorm: 783429 Take 1/2 Tablet(s) Oral QD 02/01/20 24 025 Active torsemide 20 mg tablet RxNorm: 542735 1 TAB ORALLY DAILY (DX: EDEMA) 01/27/20 No Stop Date Active potassium chloride ER 20 mEq tablet,extended release(part/cryst) RxNorm: 7916559 2 TABS (40MEQ) ORALLY TWICE DAILY (DX: HYPOKALEMIA) 01/27/20 24 Inactive cephalexin 500 mg capsule RxNorm: 523675 Take 1 Capsule(s) Oral QID 12/17/19 24 Inactive cephalexin 500 mg capsule RxNorm: 039946 Take 1 Capsule(s) Oral QID 12/17/19 24 024 Inactive acetaminophen 500 mg tablet RxNorm: 671760 (MAX APAP:4GM/24HR) Take 1 Tablet(s) Oral TID as needed for pain 12/10/19 Inactive torsemide 20 mg tablet RxNorm: 422819 Take 1 Tablet(s) Oral QD 10/26/19 24 Inactive potassium chloride ER 20 mEq tablet,extended release RxNorm: 602957 Take 2 Tablet(s) Oral BID 10/26/19 24 Inactive torsemide 20 mg tablet RxNorm: 524429 Take 1 Tablet(s) Oral QD 10/26/19 24 Inactive potassium chloride ER 20 mEq tablet,extended release RxNorm: 521153 Take 2 Tablet(s) Oral BID 10/26/19 24 Inactive Artificial Tears (PF) 0.1 %-0.3 % drops in a dropperette RxNorm: 656187 Apply 1-2 Drop(s) Both eyes BID as needed 09/28/19 24 Inactive erythromycin 5 mg/gram (0.5 %) eye ointment RxNorm: 938494 Apply 1 Application Both eyes QHS every night at bedtime Instill ~1 cm ribbon into affected eye 09/28/19 24 Inactive Artificial Tears (PF) 0.1 %-0.3 % drops in a dropperette RxNorm: 193137 Apply 1-2 Drop(s) Both eyes BID as needed 09/28/19 24 Inactive erythromycin 5 mg/gram (0.5 %) eye ointment RxNorm: 658022 Apply 1 Application Both eyes QHS every night at bedtime Instill ~1 cm ribbon into affected eye 09/28/19 24 024 Inactive acetaminophen 500 mg tablet RxNorm: 758425 (MAX APAP:4GM/24HR) Take 1 Tablet(s) Oral TID as needed for pain 09/24/19 24 024 Inactive carvedilol 25 mg tablet RxNorm: 243623 Take 1 Tablet(s) Oral QD 09/08/19 24 No Stop Date Active pregabalin 100 mg capsule RxNorm: 854845 Take 1 Capsule(s) Oral QAM every morning 09/07/19 24 024 Inactive bisacodyl 10 mg rectal suppository RxNorm: 341621 Insert 1 Suppository Rectal QD as needed 07/13/19 24 No Stop Date Active ketoconazole 2 % shampoo RxNorm: 631313 Apply 1 Application Topical UD as directed 07/13/19 24 No Stop Date Active Ozempic 1 mg/dose (4 mg/3 mL) subcutaneous pen injector RxNorm: 3015469 Inject 1 Milligram(s) Subcutaneous QW once a week 07/13/19 24 No Stop Date Active Guaifenesin AC 10 mg-100 mg/5 mL oral liquid RxNorm: 505960 Take 10 Milliliter(s) Oral Q4H every four hours as needed 07/13/19 24 No Stop Date Active hydrocortisone 2.5 % topical cream RxNorm: 295468 Apply 1 Application Topical BID as needed 07/13/19 24 No Stop Date Active rosuvastatin 40 mg tablet RxNorm: 689305 Take 1 Tablet(s) Oral QPM every evening 07/13/19 24 024 Inactive ezetimibe 10 mg tablet RxNorm: 517417 Take 1 Tablet(s) Oral QD 07/13/19 24 025 Inactive polyethylene glycol 3350 17 gram/dose oral powder RxNorm: 509539 Take 17 Gram(s) Oral BID as needed mix in 4-8ox water 07/13/19 24 025 Inactive aripiprazole 15 mg tablet RxNorm: 958394 Take 1/2 Tablet(s) Oral QD 07/13/19 24 024 Inactive isosorbide mononitrate ER 60 mg tablet,extended release 24 hr RxNorm: 348096 Take 1 Tablet(s) Oral QD 07/13/19 24 024 Inactive ammonium lactate 12 % topical cream RxNorm: 031312 Apply 1 Application Topical BID 07/13/19 24 025 Inactive rosuvastatin 20 mg sprinkle capsule RxNorm: 1164139 Take 1 Capsule(s) Oral QD 07/13/19 24 025 Inactive Vascepa 1 gram capsule RxNorm: 1280548 Take 2 Capsule(s) Oral BID 07/13/19 24 024 Inactive venlafaxine ER 75 mg capsule,extended release 24 hr RxNorm: 123537 Take 3 Capsule(s) Oral QD 07/13/19 24 024 Inactive Basaglar KwikPen U-100 Insulin 100 unit/mL (3 mL) subcutaneous RxNorm: 3885658 Inject 30U SubQ twice daily 07/07/19 24 024 Inactive Please dispense one month supply. Basaglar KwikPen U-100 Insulin 100 unit/mL (3 mL) subcutaneous RxNorm: 4506738 Inject 30U SubQ twice daily 07/07/19 24 024 Inactive Please dispense one month supply. pregabalin 150 mg capsule RxNorm: 388502 Take 1 Capsule(s) Oral QHS every night at bedtime 07/05/19 24 024 Inactive pregabalin 150 mg capsule RxNorm: 737001 Take 1 Capsule(s) Oral QHS every night at bedtime 07/05/19 24 024 Inactive polyethylene glycol 3350 17 gram/dose oral powder RxNorm: 811115 Take 1 Packet Oral QD as needed (1 packet = 17g) mix with 4-8oz of liquid 06/15/19 24 024 Inactive bisacodyl 10 mg rectal suppository RxNorm: 656860 Insert one suppository per rectum once daily as needed for constipation 06/15/19 24 024 Inactive bisacodyl 10 mg rectal suppository RxNorm: 195976 Insert one suppository per rectum once daily as needed for constipation 06/15/19 24 024 Inactive pregabalin 100 mg capsule RxNorm: 079799 Take 1 Capsule(s) Oral QAM every morning 04/27/20 23 024 Inactive Levemir FlexPen 100 unit/mL (3 mL) solution subcutaneous insulin pen RxNorm: 702699 Inject 30 Unit(s) Subcutaneous BID 04/27/20 024 Inactive rosuvastatin 40 mg tablet RxNorm: 873360 Take 1 Tablet(s) Oral QPM every evening 04/16/20 024 Inactive D/C rosuvastatin 20mg venlafaxine ER 75 mg capsule,extended release 24 hr RxNorm: 198935 Take 3 Capsule(s) Oral QD 04/14/20 023 Inactive pregabalin 100 mg capsule RxNorm: 715443 Take 1 Capsule(s) Oral QAM every morning [...] strip clotrimazole 1 % topical cream RxNorm: 000763 Take apply topically to abdominal folds twice daily for 14 days 03/12/20 024 Inactive Ozempic 1 mg/dose (4 mg/3 mL) subcutaneous pen injector RxNorm: 3169575 Inject 1 Milligram(s) Subcutaneous QW once a week 03/11/20 23 023 Inactive rosuvastatin 20 mg tablet RxNorm: 209876 Take 1 Tablet(s) Oral QD 02/26/20 023 Inactive d/c pravastatin 80mg Ozempic 1 mg/dose (4 mg/3 mL) subcutaneous pen injector RxNorm: 7966546 Inject 1 Milligram(s) Subcutaneous QW once a week 02/20/20 23 023 Inactive pregabalin 150 mg capsule RxNorm: 668433 Take 1 Capsule(s) Oral HS at bed time 02/19/20 23 023 Inactive pregabalin 100 mg capsule RxNorm: 962607 Take 1 Capsule(s) Oral QAM every morning 02/18/20 23 023 Inactive venlafaxine ER 75 mg capsule,extended release 24 hr RxNorm: 350564 Take 3 Capsule(s) Oral QD 02/04/20 23 023 Inactive FreeStyle Chema 2 Sensor kit RxNorm: use as directed 02/04/20 23 023 Inactive FreeStyle Chema 2 Sensor kit RxNorm: use as directed 02/04/20 23 024 Inactive fluconazole 150 mg tablet RxNorm: 147684 Take 1 Tablet(s) Oral on day 3 and on day 6 02/03/20 024 Inactive venlafaxine ER 150 mg capsule,extended release 24 hr RxNorm: 184520 Take 1 Capsule(s) Oral QD 02/03/20 23 023 Inactive chlorthalidone 25 mg tablet RxNorm: 637186 Take 1 Tablet(s) Oral QAM every morning 02/03/20 23 024 Inactive acetaminophen 500 mg tablet RxNorm: 118555 1 TABLET ORALLY 3 TIMES DAILY (MAX APAP:4GM/24HR) 12/15/19 23 023 Inactive potassium chloride ER 20 mEq tablet,extended release RxNorm: 257064 Take 1 Tablet(s) Oral BID 12/09/19 23 024 Inactive d/c 20mEq once daily (sent from hospital) clotrimazole 1 % topical cream RxNorm: 422017 apply 1g topically to top of feet and in between toes BID 12/09/19 23 025 Inactive nystatin 100,000 unit/gram topical powder RxNorm: 656181 APPLY TO AFFECTED AREAS TOPICALLY 2 TIMES DAILY 11/21/19 23 023 Inactive Nystop 100,000 unit/gram topical powder RxNorm: 417275 Apply to abd folds, under breasts and L side of groin Topical BID x 14 days, then BID PRN 11/20/19 23 023 Inactive dx: yeast dermatitis Bengay Ultra Strength 4 %-30 %-10 % topical cream RxNorm: 686531 Apply 1 Gram(s) Topical QID PRN to feet and legs for neuropathic pain 11/11/19 024 Inactive clotrimazole 1 % topical cream RxNorm: 960274 Apply 1/2 Gram(s) Topical BID Apply to affected areas of groin, periarea, and abdominal topically 2 times daily 11/10/19 023 Inactive hydrocortisone 2.5 % topical cream RxNorm: 186829 Apply 1/2 Gram(s) Topical BID as needed 11/10/19 024 Inactive Levemir FlexPen 100 unit/mL (3 mL) solution subcutaneous insulin pen RxNorm: 500730 Inject 30 Unit(s) Subcutaneous BID 10/07/19 023 Inactive Humulin R U-500 (Concentrated) Insulin 500 unit/mL subcutaneous soln RxNorm: 028313 Inject 100 Unit(s) Subcutaneous TID 10/07/19 024 Inactive Ozempic 0.25 mg or 0.5 mg (2 mg/3 mL) subcutaneous pen injector RxNorm: 7763786 Inject 1/2 Milligram(s) Subcutaneous QW once a week 10/07/19 024 Inactive aripiprazole 15 mg tablet RxNorm: 826933 1/2 TAB (7.5MG) ORALLY DAILY (DX:MAJOR DEPRESSIVE DISORDER) 09/23/19 023 Inactive Accu-Chek Guide test strips RxNorm: Use 1 Test Strip QID 09/15/19 23 023 Inactive ok to substitute with any covered alternative test strip Lancets,Thin 28 gauge RxNorm: Use 1 as directed QID 09/15/19 023 Inactive torsemide 20 mg tablet RxNorm: 742964 Take 1 Tablet(s) Oral BID 09/09/19 23 024 Inactive d/c once daily dosing carvedilol 25 mg tablet RxNorm: 734840 Take 1 Tablet(s) Oral QD 08/25/19 024 Inactive pregabalin 150 mg capsule RxNorm: 324818 1 Capsule(s) Oral HS at bed time 08/18/19 23 023 Inactive pregabalin 100 mg capsule RxNorm: 222188 1 Capsule(s) Oral QAM every morning 08/18/19 23 023 Inactive carvedilol 25 mg tablet RxNorm: 140013 1 Tablet(s) Oral QD 07/28/19 23 023 Inactive lisinopril 20 mg tablet RxNorm: 735067 Give 1 Tablet(s) Oral QD 07/28/19 23 023 Inactive Lyrica 150 mg capsule RxNorm: 560606 Take 1 Capsule(s) Oral QHS every night at bedtime 07/19/19 023 Inactive d/c 100mg dose Diflucan 150 mg tablet RxNorm: 148880 Take 1 Tablet(s) Oral QD repeat on day 3 and 6 07/19/19 23 023 Inactive pregabalin 100 mg capsule RxNorm: 713223 Take 1 Capsule(s) Oral QAM every morning 07/19/19 023 Inactive gatifloxacin 0.5 % eye drops RxNorm: 877247 Instill 1 Drop(s) as directed TID Instill 1 drop in to affected eye(s) starting 1 day prior to surgery and continue until gone (do not exceed 4 weeks). 07/13/19 23 023 Inactive carvedilol 25 mg tablet RxNorm: 948340 2 Tablet(s) Oral BID 07/13/19 023 Inactive Humulin R Regular U-100 Insulin 100 unit/mL injection solution RxNorm: 690443 85 Unit(s) Injection TID 07/13/19 23 023 Inactive ketorolac 0.5 % eye drops RxNorm: 937455 Instill 1 Drop(s) as directed QID Instill 1 drop into affected eye(s) 4 times daily starting 1 day prior to surgery and continue until gone (do not exceed 4 weeks). 07/13/19 23 023 Inactive Diflucan 150 mg tablet RxNorm: 166946 Take 1 Tablet(s) Oral QD repeat on day 3 and 6 02/14/ 023 Inactive Accu-Chek Guide test strips RxNorm: Use 1 Test Strip QID Use 1 test strip to monitor blood glucose 4 times daily and as needed. Dx:E11.42. 06/23/19 023 Inactive ok to substitute with any covered alternative test strip dextromethorphan-gu aifenesin 10 mg-100 mg/5 mL oral liquid RxNorm: 518917 Take 10 Milliliter(s) Oral every 4 hours as needed for cough 06/19/19 023 Inactive dextromethorphan-gu aifenesin 10 mg-100 mg/5 mL oral liquid RxNorm: 806093 Take 10 Milliliter(s) Oral every 4 hours as needed for cough 06/19/19 023 Inactive Lyrica 150 mg capsule RxNorm: 817940 Take 1 Capsule(s) Oral QHS every night at bedtime 06/18/19 023 Inactive d/c 100mg dose aripiprazole 15 mg tablet RxNorm: 964096 1/2 TAB (7.5MG) ORALLY DAILY (DX:MAJOR DEPRESSIVE DISORDER) 06/05/19 023 Inactive pregabalin 100 mg capsule RxNorm: 983575 1 Capsule(s) Oral QAM every morning 06/02/19 023 Inactive Banophen 50 mg capsule RxNorm: 5481508 Take 1 Capsule(s) Oral Q6H every 6 hours as needed 05/19/19 23 No Stop Date Active Novolog Flexpen U-100 Insulin aspart 100 unit/mL (3 mL) subcutaneous RxNorm: 0026555 Inject 10 Unit(s) Subcutaneous QHS every night at bedtime with nighttime snack 04/08/20 22 022 Inactive Novolog Flexpen U-100 Insulin aspart 100 unit/mL (3 mL) subcutaneous RxNorm: 6834200 Inject 42 Unit(s) Subcutaneous TID in addition to sliding scale 04/08/20 22 022 Inactive d/c 36u albuterol sulfate HFA 90 mcg/actuation aerosol inhaler RxNorm: 6314895 Take 2 Puff(s) Inhalation Q4H every four hours as needed as needed for SOB, cough, or wheezing 04/07/20 22 030 Active Banophen 50 mg capsule RxNorm: 2345585 Take 1 Capsule(s) Oral Q6H every 6 hours as needed 04/06/20 023 Inactive diphenhydramine 50 mg tablet RxNorm: 2336982 Take 1 Tablet(s) Oral Q6H every 6 hours as needed 04/06/20 22 022 Inactive diphenhydramine 50 mg tablet RxNorm: 2471327 1 Tablet(s) Oral Q6H every 6 hours as needed 04/06/20 22 022 Inactive Abilify 15 mg tablet RxNorm: 788063 1/2 Tablet(s) Oral QD 03/10/20 023 Inactive Shingrix (PF) 50 mcg/0.5 mL intramuscular suspension, kit RxNorm: 5856138 Administer 1/2 Milliliter(s) Intramuscular QD one time shingrix step 2 ( step 1 given 11/04/21) WITH needle - Nursing please administer upon arrival and once administered post a bridge message with date of administration, examination grader, expiration date, and lot# so we can update [facility] 02/18/20 22 022 Inactive dispense with needle Shingrix (PF) 50 mcg/0.5 mL intramuscular suspension, kit RxNorm: 3458405 Administer 1/2 Milliliter(s) Intramuscular QD one time shingrix step 2 ( step 1 given 11/04/21) WITH needle - Nursing please administer upon arrival and once administered post a bridge message with date of administration, examination grader, expiration date, and lot# so we can update [facility] 02/18/20 22 022 Inactive dispense with needle Lyrica 100 mg capsule RxNorm: 658761 Take 1 Capsule(s) Oral QAM every morning 01/08/20 22 022 Inactive d/c 50mg dose acetaminophen 500 mg tablet RxNorm: 065903 Take 1 Tablet(s) Oral TID 01/08/20 22 022 Inactive d/c PRN order Lyrica 150 mg capsule RxNorm: 995647 Take 1 Capsule(s) Oral QHS every night at bedtime 01/08/20 22 023 Inactive d/c 100mg dose polyethylene glycol 3350 17 gram/dose oral powder RxNorm: 185310 Take 17=1 capful Gram(s) Oral QD mix with 4-8oz of liquid 01/08/20 22 025 Inactive take this in addition to BID prn order Abilify 5 mg tablet RxNorm: 694608 Take 1 Tablet(s) Oral QD take 1 tab po QD #30 refill 5 dx: MDD 12/12/19 22 022 Inactive Abilify 5 mg tablet RxNorm: 847892 Take 1 Tablet(s) Oral QD take 1 tab po QD #30 refill 5 dx: MDD 12/12/19 22 022 Inactive Novolog Flexpen U-100 Insulin aspart 100 unit/mL (3 mL) subcutaneous RxNorm: 8693768 Inject 42 Unit(s) Subcutaneous TID in addition to sliding scale 12/10/19 22 022 Inactive d/c 36u chlorthalidone 25 mg tablet RxNorm: 995870 Take 1 Tablet(s) Oral QAM every morning 12/10/19 22 023 Inactive pregabalin 50 mg capsule RxNorm: 616985 Take 1 Capsule(s) Oral QAM every morning 11/12/19 22 022 Inactive tetanus-diphtheria toxoids-Td 2 Lf unit-2 Lf unit/0.5 mL IM suspension RxNorm: 139 Take 0.5 Miscellaneous Intramuscular 11/12/19 22 022 Inactive need tdap - nursing to administer upon arrival pregabalin 50 mg capsule RxNorm: 868190 Take 1 Capsule(s) Oral QAM every morning 10/16/19 22 022 Inactive pregabalin 50 mg capsule RxNorm: 746361 Take 1 Capsule(s) Oral QAM every morning 10/16/19 22 022 Inactive pregabalin 50 mg capsule RxNorm: 781342 1 Capsule(s) Oral QAM every morning 10/15/19 22 022 Inactive Shingrix (PF) 50 mcg/0.5 mL intramuscular suspension, kit RxNorm: 4181930 Administer 1/2 Milliliter(s) Intramuscular one time Nursing please administer upon arrival and once administered post a bridge message with date of administration, examination grader, expiration date, and lot# so we can update [facility]. 10/09/19 22 022 Inactive shingrix step 1 Shingrix (PF) 50 mcg/0.5 mL intramuscular suspension, kit RxNorm: 9817082 Administer 1/2 Milliliter(s) Intramuscular one time Nursing please administer upon arrival and once administered post a bridge message with date of administration, examination grader, expiration date, and lot# so we can [...] aspart 100 unit/mL (3 mL) subcutaneous RxNorm: 1679034 Inject 10 Unit(s) Subcutaneous QHS every night at bedtime with nighttime snack 10/08/19 22 Inactive Shingrix (PF) 50 mcg/0.5 mL intramuscular suspension, kit RxNorm: 4830218 ADMINISTER 2-DOSE SERIES PER CDC GUIDELINES 10/08/19 22 Active Shingrix (PF) 50 mcg/0.5 mL intramuscular suspension, kit RxNorm: 0785965 ADMINISTER 2-DOSE SERIES PER CDC GUIDELINES 10/08/19 22 Inactive Novolog Flexpen U-100 Insulin aspart 100 unit/mL (3 mL) subcutaneous RxNorm: 6304704 Inject 36 Unit(s) Subcutaneous TID in addition to sliding scale 10/08/19 22 Inactive cholecalciferol (vitamin D3) 1,250 mcg (50,000 unit) capsule RxNorm: 224448 Take 1 Capsule(s) Oral QW once a week 10/08/19 22 10/30/2 024 Inactive Novofine Autocover 30 gauge x 1/3 needle RxNorm: Use 1 Miscellaneous UD as directed Use 1 needle as directed to administer insulin 5 times a day Dx:E11.42. 10/03/19 Inactive ok to substitute with any covered alternative pen needle benzoyl peroxide 10 % topical cleanser RxNorm: 298451 Apply 1 Application Topical QD apply to face, wash rinse and dry once daily (may change to QOD if drying) 08/19/19 022 Inactive (%covered by insurance) #60ml refill 11 dx: acne benzoyl peroxide 10 % topical cleanser RxNorm: 421425 Apply 1 Application Topical QD apply to face, wash rinse and dry once daily (may change to QOD if drying) 08/19/19 22 022 Inactive (%covered by insurance) #60ml refill 11 dx: acne benzoyl peroxide 10 % topical cleanser RxNorm: 233332 Apply 1 Application Topical QD apply to face, wash rinse and dry once daily (may change to QOD if drying) 08/19/19 22 022 Inactive (%covered by insurance) #60ml refill 11 dx: acne Lyrica 50 mg capsule RxNorm: 060233 Take 1 Capsule(s) Oral QAM every morning Take 1 capsule by mouth once daily 08/19/19 22 022 Inactive benzoyl peroxide 10 % topical cleanser RxNorm: 141556 Apply 1 Application Topical QD apply to face, wash rinse and dry once daily (may change to QOD if drying) 08/19/19 022 Inactive (%covered by insurance) #60ml refill 11 dx: acne Lyrica 100 mg capsule RxNorm: 181880 Take 1 Capsule(s) Oral QHS every night at bedtime Take 1 capsule by mouth once daily at bedtime 08/19/19 22 022 Inactive Lyrica 100 mg capsule RxNorm: 319914 Take 1 Capsule(s) Oral QHS every night at bedtime Take 1 capsule by mouth once daily at bedtime 08/16/19 22 022 Inactive Lyrica 50 mg capsule RxNorm: 195058 Take 1 Capsule(s) Oral QAM every morning Take 1 capsule by mouth once daily 08/16/19 22 022 Inactive Levemir FlexTouch U-100 Insulin 100 unit/mL (3 mL) subcutaneous pen RxNorm: 231290 Inject 86 Unit(s) Subcutaneous BID 08/05/19 22 022 Inactive d/c 83units BID Lyrica 100 mg capsule RxNorm: 331540 Take 1 Capsule(s) Oral QHS every night at bedtime Take 1 capsule by mouth once daily at bedtime 07/14/19 22 022 Inactive Lyrica 50 mg capsule RxNorm: 712321 Take 1 Capsule(s) Oral QAM every morning Take 1 capsule by mouth once daily 07/14/19 22 022 Inactive Levemir FlexTouch U-100 Insulin 100 unit/mL (3 mL) subcutaneous pen RxNorm: 215367 Inject 83 Unit(s) Subcutaneous BID 07/08/19 22 [...] test strip hydralazine 50 mg tablet RxNorm: 448508 Take 1 Tablet(s) Oral QID 05/05/20 21 022 Inactive venlafaxine ER 225 mg tablet,extended release 24 hr RxNorm: 605104 Take 1 Tablet(s) Oral QD 05/05/20 21 Inactive venlafaxine ER 225 mg tablet,extended release 24 hr RxNorm: 360635 Take 1 Tablet(s) Oral QD 05/05/20 022 Inactive isosorbide mononitrate ER 30 mg tablet,extended release 24 hr RxNorm: 384624 Take 1 Tablet(s) Oral QD 05/05/20 024 Inactive hydralazine 50 mg tablet RxNorm: 919149 Take 1 Tablet(s) Oral QID 05/05/20 21 Inactive aspirin 81 mg tablet,delayed release RxNorm: 703105 Take 1 Tablet(s) Oral QD 03/31/20 022 Inactive Vitamin D2 1,250 mcg (50,000 unit) capsule RxNorm: 7661000 Take 1 Capsule(s) Oral QW once a week x 12 weeks 03/31/20 022 Inactive Vitamin D2 1,250 mcg (50,000 unit) capsule RxNorm: 6323111 Take 1 Capsule(s) Oral QW once a week 03/31/20 021 Inactive Zetia 10 mg tablet RxNorm: 178365 Take 1 Tablet(s) Oral QD 03/31/20 21 024 Inactive Zetia 10 mg tablet RxNorm: 696278 Take 1 Tablet(s) Oral QD 03/31/20 21 021 Inactive hydralazine 25 mg tablet RxNorm: 657509 Take 1 Tablet(s) Oral QID 03/31/20 021 Inactive hydralazine 25 mg tablet RxNorm: 087245 Take 1 Tablet(s) Oral QID 03/31/20 021 Inactive hydralazine 10 mg tablet RxNorm: 507318 Take 1 Tablet(s) Oral QID 03/03/20 021 Inactive cephalexin 500 mg tablet RxNorm: 888696 Take 1 Tablet(s) Oral QID 02/27/20 021 Inactive cephalexin 500 mg tablet RxNorm: 424252 Take 1 Tablet(s) Oral QID 02/27/20 021 Inactive lisinopril 40 mg tablet RxNorm: 959561 Take 1 Tablet(s) Oral QD 02/11/20 023 Inactive Eliquis 5 mg tablet RxNorm: 5256995 Take 1 Tablet(s) Oral BID 01/05/20 21 025 Inactive Eliquis 5 mg tablet RxNorm: 5731546 Take 2 Tablet(s) Oral QD 01/01/20 21 021 Inactive Lyrica 50 mg capsule RxNorm: 296208 Take 1 Capsule(s) Oral QAM every morning 12/24/19 021 Inactive Lyrica 100 mg capsule RxNorm: 254452 Take 1 Capsule(s) Oral QHS every night at bedtime 12/24/19 021 Inactive clotrimazole 1 % topical cream RxNorm: 437860 Apply to right foot and toes Topical BID 12/04/19 21 023 Inactive metoprolol succinate ER 200 mg tablet,extended release 24 hr RxNorm: 868455 Take 1 Tablet(s) Oral QD 12/04/19 21 023 Inactive ciprofloxacin 500 mg tablet RxNorm: 192511 Take 1 Tablet(s) Oral QD 11/30/19 21 021 Inactive DX ofloxacin otic drops Accu-Chek Guide test strips RxNorm: USE 1 TO CHECK GLUCOSE 4 TIMES DAILY AND NEEDED 11/15/19 21 023 Inactive Blood Glucose Test strips RxNorm: Use 1 Test Strip QID at PRN 11/05/19 21 023 Inactive E11.42 lisinopril 30 mg tablet RxNorm: 232999 Take 1 Tablet(s) Oral QD 10/30/19 21 021 Inactive lisinopril 20 mg tablet RxNorm: 868741 Take 1 Tablet(s) Oral QD 10/23/19 21 021 Inactive lisinopril 20 mg tablet RxNorm: 582015 Take 1 Tablet(s) Oral QD 10/23/19 21 021 Inactive lisinopril 10 mg tablet RxNorm: 930341 Take 1 Tablet(s) Oral QD 10/02/19 21 021 Inactive icosapent ethyl 1 gram capsule RxNorm: 9406407 Take 2 Capsule(s) (2 gm) Oral BID with meals 09/12/19 21 024 Inactive Okay to dispense one 2gm tab if you have that available. icosapent ethyl 1 gram capsule RxNorm: 5923269 Take 2 Capsule(s) Oral BID 09/12/19 21 021 Inactive Okay to dispense one 2gm tab if you have that available. amlodipine 10 mg tablet RxNorm: 100350 Take 1 Tablet(s) Oral QD 09/04/19 21 021 Inactive aspirin 81 mg tablet,delayed release RxNorm: 705706 Take 1 Tablet(s) Oral QD 09/04/19 21 021 Inactive Levemir FlexTouch U-100 Insulin 100 unit/mL (3 mL) subcutaneous pen RxNorm: 561801 Inject 150 Unit(s) Subcutaneous BID 09/04/19 21 022 Inactive venlafaxine ER 150 mg tablet,extended release 24 hr RxNorm: 168675 Take 1 Tablet(s) Oral QD 09/04/19 21 021 Inactive clotrimazole-betame thasone 1 %-0.05 % topical cream RxNorm: 242343 Apply to rash on red area on left abdomen/chest Topical BID 08/10/19 21 021 Inactive amlodipine 5 mg tablet RxNorm: 250358 Take 1 Tablet(s) Oral QD 07/31/19 21 021 Inactive cephalexin 500 mg tablet RxNorm: 924971 Take 1 Tablet(s) Oral BID BID - Twice Daily 07/31/19 21 021 Inactive Start 08/01/20 pantoprazole 40 mg tablet,delayed release RxNorm: 800216 Take 1 Tablet(s) Oral QAM every morning 07/08/19 025 Inactive clopidogrel 75 mg tablet RxNorm: 382020 Take 1 Tablet(s) Oral QD 07/08/19 021 Inactive Blood Glucose Test strips RxNorm: Use 1 Test Strip QID at PRN 07/08/19 21 Inactive E11.42 senna 8.6 mg tablet RxNorm: 688734 Take 1 Tablet(s) Oral QD 07/08/19 025 Inactive Novolog Flexpen U-100 Insulin aspart 100 unit/mL (3 mL) subcutaneous RxNorm: 8236842 Administer per sliding scale Milliliter(s) Subcutaneous TID 151-200: 10 u; 201-250: 20 u; 251-300: 30 u; 301-350: 40 u; 351-400: 50 u. 07/08/19 022 Inactive lisinopril 5 mg tablet RxNorm: 539881 Take 1 Tablet(s) Oral QD 07/08/19 021 Inactive Novolog Flexpen U-100 Insulin aspart 100 unit/mL (3 mL) subcutaneous RxNorm: 2847619 Inject 85 Unit(s) Subcutaneous TID 07/08/19 022 Inactive pravastatin 80 mg tablet RxNorm: 826024 Take 1 Tablet(s) Oral QHS every night at bedtime 07/08/19 023 Inactive clotrimazole 1 % topical cream RxNorm: 126228 Apply to bilateral groin areas Topical BID 07/08/19 21 022 Inactive metoprolol succinate ER 200 mg tablet,extended release 24 hr RxNorm: 805101 Take 1 Tablet(s) Oral QD 07/08/19 021 Inactive Vitamin D3 25 mcg (1,000 unit) tablet RxNorm: 167327 Take 1 Tablet(s) Oral QD 07/08/19 21 021 Inactive isosorbide dinitrate 30 mg tablet RxNorm: 067013 Take 1 Tablet(s) Oral QD 07/08/19 021 Inactive carbamazepine 200 mg tablet RxNorm: 198917 Take 1 Tablet(s) Oral BID 07/08/19 21 025 Inactive Levemir FlexTouch U-100 Insulin 100 unit/mL (3 mL) subcutaneous pen RxNorm: 809485 Inject 140 Unit(s) Subcutaneous BID 07/08/19 021 Inactive torsemide 20 mg tablet RxNorm: 840719 Take 1 Tablet(s) Oral QD 07/08/19 023 Inactive venlafaxine 75 mg tablet RxNorm: 543651 Take 1 Tablet(s) Oral QD 07/08/19 021 Inactive acetaminophen 500 mg tablet RxNorm: 935818 Take 1 Tablet(s) Oral TID as needed for headache 06/18/19 21 021 Inactive acetaminophen 500 mg tablet RxNorm: 717037 Take 1 Tablet(s) Oral TID as needed for headache 06/18/19 021 Inactive Lyrica 100 mg capsule RxNorm: 805021 Take 1 Capsule(s) Oral QHS every night at bedtime 06/11/19 021 Inactive Lyrica 50 mg capsule RxNorm: 963677 Take 1 Capsule(s) Oral QAM every morning 06/10/19 021 Inactive hydrocortisone 2.5 % topical cream RxNorm: 857447 Apply to bilateral groin creases Topical BID 05/15/20 20 021 Inactive clotrimazole 1 % topical cream RxNorm: 356794 Apply to bilateral groin areas Topical BID 05/15/20 20 021 Inactive Lyrica 50 mg capsule RxNorm: 497507 Take 1 Capsule(s) Oral QAM every morning 05/14/20 20 020 Inactive Lyrica 100 mg capsule RxNorm: 742902 Take 1 Capsule(s) Oral QHS every night [...] Inactive Nystop 100,000 unit/gram topical powder RxNorm: 409299 Apply to abd folds, under breasts and L side of groin Topical BID x 14 days, then BID PRN 04/08/20 20 Inactive dx: yeast dermatitis Lyrica 100 mg capsule RxNorm: 628245 Take 1 Capsule(s) Oral QHS every night at bedtime 03/13/20 20 Inactive Lyrica 50 mg capsule RxNorm: 497528 Take 1 Capsule(s) Oral QAM every morning 03/13/20 20 Inactive ketoconazole 2 % shampoo RxNorm: 394743 Apply Topical two times a week with showers 03/11/20 20 024 Inactive cholecalciferol (vitamin D3) 50 mcg (2,000 unit) tablet RxNorm: 862422 Take 1 Tablet(s) Oral QD 03/11/20 20 021 Inactive Zetia 10 mg tablet RxNorm: 487929 Take 1 Tablet(s) Oral QD 03/07/20 20 021 Inactive Zetia 10 mg tablet RxNorm: 741532 Take 1 Tablet(s) Oral QD 03/07/20 20 Inactive Lyrica 50 mg capsule RxNorm: 706368 Take 1 Capsule(s) Oral QAM every morning 02/15/20 20 Inactive Lyrica 100 mg capsule RxNorm: 988852 Take 1 Capsule(s) Oral QHS every night at bedtime 02/15/20 20 020 Inactive Lyrica 100 mg capsule RxNorm: 909535 Take 1 Capsule(s) Oral QHS every night at bedtime 02/15/20 20 020 Inactive Lyrica 50 mg capsule RxNorm: 254835 Take 1 Capsule(s) Oral QAM every morning 02/15/20 20 020 Inactive venlafaxine ER 75 mg capsule,extended release 24 hr RxNorm: 009844 Take 3 Capsule(s) Oral QD 06/12/19 023 Inactive polyethylene glycol 3350 17 gram/dose oral powder RxNorm: 335661 Take 17=1 capful Gram(s) Oral BID as needed mix with 4-8oz of liquid 06/12/19 22 024 Inactive icosapent ethyl 1 gram capsule RxNorm: 5384544 Take 2 Capsule(s) (2 gm) Oral BID with meals 10/07/19 23 023 Inactive Okay to dispense one 2gm tab if you have that available. Levemir FlexTouch U-100 Insulin 100 unit/mL (3 mL) subcutaneous pen RxNorm: 603381 Inject 80 Unit(s) Subcutaneous BID 07/14/19 23 023 Inactive metoprolol succinate ER 200 mg tablet,extended release 24 hr RxNorm: 066207 Take 1 Tablet(s) Oral QD 08/12/19 23 025 Inactive loperamide 2 mg capsule RxNorm: 477266 Take 1 Capsule(s) Oral QID as needed 09/06/19 25 025 Inactive hydralazine 50 mg tablet RxNorm: 506422 Take 1 Tablet(s) Oral QID 08/12/19 23 025 Inactive Soft Touch Lancets RxNorm: miscellaneous 03/04/20 24 025 Inactive Novolog Flexpen U-100 Insulin aspart 100 unit/mL (3 mL) subcutaneous RxNorm: 5892456 Insert 30 Unit(s) Subcutaneous TID with meals [...] Signs Date Vital 09/05/2024 BMI: NaN Code: 14927-7 Heart Rate 1: 86 bpm Code: 8867-4 [...] Encounter Performer Location Location Address Codes Date ([address]) Home Visit - Est Pt, moderate Diagnosis: Constipation by delayed colonic transit[ICD10: K59.01] Diagnosis: Hypokalemia[ICD10: E87.6] Diagnosis: Stage 2 chronic 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[ICD10: E11.22] Diagnosis: Type 2 diabetes mellitus with diabetic polyneuropathy, with long-term current use of insulin[ICD10: E11.42] Diagnosis: Loose stools[SNOMED: [id number]] Harrison Munson [address] [address] [place] [address] CPT-4: 83591 09/05/2024 Plan of Care Planned Activity Notes Codes Status Date Referral: [facility] Radiology/Imaging WPtel: [address] [facility] [id number] [place] Referral Appointment Scheduled 10/20/2024 Patient Education: Patient Medication Summary Completed 09/05/2024 Patient Education: Influenza Complet ed 09/05/2024 Appointment: Brian Munson WPtel: [address] [place], [place] [id number] [place] F/U 08/08/2024 Appointment: Brian Munson WPtel: [address] [place], [place] [id number] [place] F/U 07/11/2024 Referral: [facility]/Endocrinology WPtel: [phone] [place] Referral No Records Received 07/10/2024 Appointment: Brian Munson WPtel: [address] [place], [place] [id number] AWV 02/08/2024 Appointment: Brian Munson WPtel: [address] [place], [place] [id number] [place] F/U 01/11/2024 Appointment: Sandra Clark WPtel: [address] [place], [place] [phone] Telehealth Psych Follow Up 12/09 Appointment: Tapan Shirley WPtel: [address] [facility] [address] [id number] [facility] 10/26/2022 Referral: [facility] WPtel: [address] , [address] [id number] Referral Records Received 09/21/2022 Appointment: Tapan Shirley WPtel: [address] [id number] [place] F/U 08/11/2022 Appointment: Tapan Shirley WPtel: [address] [id number] [place] F/U 07/14/2022 Appointment: Tapan Shirley WPtel: [address] [id number] [place] F/U 02/10/2022 Referral: [facility] WPtel: [address] [id number] Referral Completed 05/28/2021 Referral: General Cardiology Referral [...] Sister Jyotsna involved in his care cell# [phone] Guardian: Giulia (tapan met in person 09/01/21), [...] appointment 05.26.2024 with Jessa Webster MD at [facility]. Start Pioglitazone 15 [...] after each subsequent loose stool. Do not exceed 4 doses in 24 hours. Do not administer until after 3 loose stools. Constipation by delayed colonic transit Last month changed scheduled bowel medication to PRN due to having loose stools. Follow up on BMs today Will continue PRN senna on day two of no BM and continue PRN miralax on day three of no BM. Monitor for worsening constipation or loose stools and adjust treatment plan accordingly. Staff to notify [facility] if they see signs of an ileus or bowel obstruction. Type 2 diabetes mellitus with diabetic polyneuropathy, with long-term current use of insulin Endocrinology appointment . with Jessa Webster MD at [facility]. Started Pioglitazone 15 mg QD. Stop Basaglar insulin. Increase Ozempic 2 mg once wkly. Continue Humalin R U-500 100 units with meals TID. FOLLOW UP 2 MONTHS. If BG >400 add 50 units to next scheduled dose of Humalin R U 500 insulin. 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 Last appt yesterday with endocrine - follow up now again in 2 months diabetic orders after endocrinology appt - Humulin 140 units with breafast and supper, 120 units with lunch, ozempic, and pioglitazone continued. Continue medication regimen set forth by specialty team. PCP will defer diabetes management for specialist PCP will follow up on BG log at each visit and consult nursing staff to ensure Peter has the needed supplies for diabetes management, and continue to encourage healthy dietary intake and increased physical activity as able. Fountain Attendant asked PCP for assistance in obtaining A1c and urine microalbumin lab work - will order today Hypokalemia Due for follow up lab work; will order BMP today. Continue current potassium supplementation. Stage 2 chronic 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 Due for follow up BMP - will order today Monitoring BMP every 3 months Last eGFR 82 Control BP as appropriate for age, risk for falls, and life expectancy. Avoid nephrotoxic medications. Renal dose medications as appropriate.. 09/05/2024
--- OUTSIDE RECORDS SUMMARY | 2024-10-19 19:36 | XMS_ITS | CCD ---
Author Name Cecilio Durham Address [address] [address] [place] [address] Phone Organization [facility] Phone Care Team Providers Care Sheriff Name Role Phone Harrison Durham Primary Care Provider Leona vailable Unavailable Chronic Care Management Unavaila ble Summary Purpose DataExchange Insurance Providers Payer name Policy type / Coverage type Covered republican ID Effective Begin Date Effective End Date [place] Part B [id number] Unknown Unknown [place] B [id number] Unknown Unknown Family history Sister Brittnay Suggs Diagnosis Age At Onset No Family Disease Entered N/A Runs in the family Diagnosis Age At Onset No Known Diseases N/A Sister Blanka Mcduffie Diagnosis Age At Onset No Family Disease Entered N/A Social History Social History Element Codes Description Effec tive Dates Caregiver Assessment Unknown No guardian or HCPOA on file 07/11/[address]: 610211521 Never smoker 01/16 Sexually Active? 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-10: [...] 200 mg tablet,extended release 24 hr RxNorm: 846783 Take 1 Tablet(s) Oral QD 06/19/19 25 No Stop Date Active pantoprazole 40 mg tablet,delayed release RxNorm: 566082 Take 1 Tablet(s) Oral QAM every morning 06/19/19 25 No Stop Date Active hydralazine 50 mg tablet RxNorm: 490096 Take 1 Tablet(s) Oral QID 06/19/19 25 No Stop Date Active carbamazepine 200 mg tablet RxNorm: 041520 Take 1 Tablet(s) Oral BID 06/19/19 25 No Stop Date Active amlodipine 10 mg tablet RxNorm: 212876 Take 1 Tablet(s) Oral QD 06/19/19 25 No Stop Date Active Eliquis 5 mg tablet RxNorm: 4254932 Take 1 Tablet(s) Oral BID 06/19/19 25 No Stop Date Active pen needle, diabetic 30 gauge x 3/16 RxNorm: Use 1 6 times per day w/insulin 06/14/19 25 026 Active pen needle, diabetic 30 gauge x 3/16 RxNorm: Use 1 needle 6 times per day w/insulin 06/14/19 25 025 Inactive nystatin 100,000 unit/gram topical powder RxNorm: 680759 Apply 1 Application Topical BID as needed abdominal/breast /groin folds 05/24/19 25 026 Active pregabalin 100 mg capsule RxNorm: 083515 Take 1 Capsule(s) Oral QAM every morning 05/22/19 25 025 Inactive nystatin 100,000 unit/gram topical powder RxNorm: 946459 Apply 1 Application Topical BID as needed abdominal/breast /groin folds 04/11/20 24 024 Inactive chlorthalidone 25 mg tablet RxNorm: 277843 Take 1 Tablet(s) Oral QAM every morning 04/06/20 24 No Stop Date Active pregabalin 150 mg capsule RxNorm: 620966 Take 1 Capsule(s) Oral QHS every night at bedtime 03/31/20 24 024 Inactive Vascepa 1 gram capsule RxNorm: 8989350 Take 2 Capsule(s) Oral BID 03/30/20 24 025 Active rosuvastatin 40 mg tablet RxNorm: 074906 1 TAB ORALLY EVERY EVENING (DX:CORONARY ARTERY DISEASE) 03/28/20 24 No Stop Date Active venlafaxine ER 75 mg capsule,extended release 24 hr RxNorm: 400175 3 CAPS (225MG) ORALLY DAILY (DX: MOOD DISORDER) 03/28/20 24 No Stop Date Active pregabalin 100 mg capsule RxNorm: 044717 Take 1 Capsule(s) Oral QAM every morning 03/20/20 24 024 Inactive cholecalciferol (vitamin D3) 1,250 mcg (50,000 unit) capsule RxNorm: 703524 Take 1 Capsule(s) Oral QW once a [...] Insulin 100 unit/mL (3 mL) subcutaneous RxNorm: 3935846 Inject 40 Unit(s) Subcutaneous BID 03/07/20 Inactive Please dispense one month supply. Humulin R U-500 (Concentrated) Insulin 500 unit/mL subcutaneous soln RxNorm: 514634 Inject 100 Unit(s) Subcutaneous AC before meals [...] PRN) to be use with new Accu [place] meter 03/04/20 024 Inactive ok to substitute with any covered alternative test strip FreeStyle Chema 2 Sensor kit RxNorm: Use UD as directed 10/17/20 24 10/17/2 024 Inactive Pen Needle 30 gauge x 16 RxNorm: Pen(s) Use 1 needle as directed TID 03/02/20 24 Inactive nystatin 100,000 unit/gram topical powder RxNorm: 123667 Apply 1 Application Topical BID as needed [...] (Concentrated) Insulin 500 unit/mL subcutaneous soln RxNorm: 960456 Inject 100 Unit(s) Subcutaneous TID 02/17/20 24 024 Inactive Humulin R U-500 (Concentrated) Insulin 500 unit/mL subcutaneous soln RxNorm: 785066 Inject 100 Unit(s) Subcutaneous TID 02/10/20 24 024 Inactive Basaglar KwikPen U-100 Insulin 100 unit/mL (3 mL) subcutaneous RxNorm: 1773353 Inject 30 Unit(s) Subcutaneous BID 02/10/20 24 024 Inactive Please dispense one month supply. pregabalin 100 mg capsule RxNorm: 016614 Take 1 Capsule(s) Oral QAM every morning 02/07/20 24 024 Inactive isosorbide mononitrate ER 60 mg tablet,extended release 24 hr RxNorm: 192060 Take 1 Tablet(s) Oral QD 02/01/20 24 025 Active aripiprazole 15 mg tablet RxNorm: 651312 Take 1/2 Tablet(s) Oral QD 02/01/20 24 025 Active torsemide 20 mg tablet RxNorm: 488208 1 TAB ORALLY DAILY (DX: EDEMA) 01/27/20 No Stop Date Active potassium chloride ER 20 mEq tablet,extended release(part/cryst) RxNorm: 7001702 2 TABS (40MEQ) ORALLY TWICE DAILY (DX: HYPOKALEMIA) 01/27/20 24 Inactive cephalexin 500 mg capsule RxNorm: 572145 Take 1 Capsule(s) Oral QID 12/17/19 24 Inactive cephalexin 500 mg capsule RxNorm: 445843 Take 1 Capsule(s) Oral QID 12/17/19 24 Inactive acetaminophen 500 mg tablet RxNorm: 339481 (MAX APAP:4GM/24HR) Take 1 Tablet(s) Oral TID as needed for pain 12/10/19 Inactive torsemide 20 mg tablet RxNorm: 168076 Take 1 Tablet(s) Oral QD 10/26/19 Inactive potassium chloride ER 20 mEq tablet,extended release RxNorm: 610203 Take 2 Tablet(s) Oral BID 10/26/19 Inactive torsemide 20 mg tablet RxNorm: 302442 Take 1 Tablet(s) Oral QD 10/26/19 24 Inactive potassium chloride ER 20 mEq tablet,extended release RxNorm: 451895 Take 2 Tablet(s) Oral BID 10/26/19 24 Inactive Artificial Tears (PF) 0.1 %-0.3 % drops in a dropperette RxNorm: 791054 Apply 1-2 Drop(s) Both eyes BID as needed 09/28/19 24 Inactive erythromycin 5 mg/gram (0.5 %) eye ointment RxNorm: 240220 Apply 1 Application Both eyes QHS every night at bedtime Instill ~1 cm ribbon into affected eye 09/28/19 24 Inactive Artificial Tears (PF) 0.1 %-0.3 % drops in a dropperette RxNorm: 001330 Apply 1-2 Drop(s) Both eyes BID as needed 09/28/19 24 Inactive erythromycin 5 mg/gram (0.5 %) eye ointment RxNorm: 156874 Apply 1 Application Both eyes QHS every night at bedtime Instill ~1 cm ribbon into affected eye 09/28/19 24 024 Inactive acetaminophen 500 mg tablet RxNorm: 566177 (MAX APAP:4GM/24HR) Take 1 Tablet(s) Oral TID as needed for pain 09/24/19 24 024 Inactive carvedilol 25 mg tablet RxNorm: 957379 Take 1 Tablet(s) Oral QD 09/08/19 24 No Stop Date Active pregabalin 100 mg capsule RxNorm: 484797 Take 1 Capsule(s) Oral QAM every morning 09/07/19 24 024 Inactive ezetimibe 10 mg tablet RxNorm: 351860 Take 1 Tablet(s) Oral QD 07/13/19 24 025 Inactive bisacodyl 10 mg rectal suppository RxNorm: 643415 Insert 1 Suppository Rectal QD as needed 07/13/19 No Stop Date Active polyethylene glycol 3350 17 gram/dose oral powder RxNorm: 182149 Take 17 Gram(s) Oral BID as needed mix in 4-8ox water 07/13/19 24 025 Inactive ketoconazole 2 % shampoo RxNorm: 477812 Apply 1 Application Topical UD as directed 07/13/19 No Stop Date Active Ozempic 1 mg/dose (4 mg/3 mL) subcutaneous pen injector RxNorm: 6012187 Inject 1 Milligram(s) Subcutaneous QW once a week 07/13/19 No Stop Date Active Guaifenesin AC 10 mg-100 mg/5 mL oral liquid RxNorm: 018571 Take 10 Milliliter(s) Oral Q4H every four hours as needed 07/13/19 24 No Stop Date Active ammonium lactate 12 % topical cream RxNorm: 572230 Apply 1 Application Topical BID 07/13/19 24 025 Inactive hydrocortisone 2.5 % topical cream RxNorm: 298346 Apply 1 Application Topical BID as needed 07/13/19 24 No Stop Date Active rosuvastatin 20 mg sprinkle capsule RxNorm: 2012719 Take 1 Capsule(s) Oral QD 07/13/19 24 025 Inactive rosuvastatin 40 mg tablet RxNorm: 529544 Take 1 Tablet(s) Oral QPM every evening 07/13/19 24 024 Inactive aripiprazole 15 mg tablet RxNorm: 231069 Take 1/2 Tablet(s) Oral QD 07/13/19 24 024 Inactive isosorbide mononitrate ER 60 mg tablet,extended release 24 hr RxNorm: 841896 Take 1 Tablet(s) Oral QD 07/13/19 24 024 Inactive Vascepa 1 gram capsule RxNorm: 4768517 Take 2 Capsule(s) Oral BID 07/13/19 24 024 Inactive venlafaxine ER 75 mg capsule,extended release 24 hr RxNorm: 795271 Take 3 Capsule(s) Oral QD 07/13/19 24 024 Inactive Basaglar KwikPen U-100 Insulin 100 unit/mL (3 mL) subcutaneous RxNorm: 5387531 Inject 30U SubQ twice daily 07/07/19 24 024 Inactive Please dispense one month supply. Basaglar KwikPen U-100 Insulin 100 unit/mL (3 mL) subcutaneous RxNorm: 6020068 Inject 30U SubQ twice daily 07/07/19 24 024 Inactive Please dispense one month supply. pregabalin 150 mg capsule RxNorm: 262851 Take 1 Capsule(s) Oral QHS every night at bedtime 07/05/19 24 024 Inactive pregabalin 150 mg capsule RxNorm: 808664 Take 1 Capsule(s) Oral QHS every night at bedtime 07/05/19 24 024 Inactive polyethylene glycol 3350 17 gram/dose oral powder RxNorm: 151932 Take 1 Packet Oral QD as needed (1 packet = 17g) mix with 4-8oz of liquid 06/15/19 24 024 Inactive bisacodyl 10 mg rectal suppository RxNorm: 629837 Insert one suppository per rectum once daily as needed for constipation 06/15/19 24 024 Inactive bisacodyl 10 mg rectal suppository RxNorm: 741649 Insert one suppository per rectum once daily as needed for constipation 06/15/19 24 024 Inactive pregabalin 100 mg capsule RxNorm: 611350 Take 1 Capsule(s) Oral QAM every morning 04/27/20 23 024 Inactive Levemir FlexPen 100 unit/mL (3 mL) solution subcutaneous insulin pen RxNorm: 574445 Inject 30 Unit(s) Subcutaneous BID 04/27/20 024 Inactive rosuvastatin 40 mg tablet RxNorm: 590443 Take 1 Tablet(s) Oral QPM every evening 04/16/20 024 Inactive D/C rosuvastatin 20mg venlafaxine ER 75 mg capsule,extended release 24 hr RxNorm: 968284 Take 3 Capsule(s) Oral QD 04/14/20 023 Inactive pregabalin 100 mg capsule RxNorm: 728133 Take 1 Capsule(s) Oral QAM every morning [...] strip clotrimazole 1 % topical cream RxNorm: 284524 Take apply topically to abdominal folds twice daily for 14 days 03/12/20 024 Inactive Ozempic 1 mg/dose (4 mg/3 mL) subcutaneous pen injector RxNorm: 2699890 Inject 1 Milligram(s) Subcutaneous QW once a week 03/11/20 23 023 Inactive rosuvastatin 20 mg tablet RxNorm: 188358 Take 1 Tablet(s) Oral QD 02/26/20 023 Inactive d/c pravastatin 80mg Ozempic 1 mg/dose (4 mg/3 mL) subcutaneous pen injector RxNorm: 0550945 Inject 1 Milligram(s) Subcutaneous QW once a week 02/20/20 23 023 Inactive pregabalin 150 mg capsule RxNorm: 237913 Take 1 Capsule(s) Oral HS at bed time 02/19/20 23 023 Inactive pregabalin 100 mg capsule RxNorm: 196637 Take 1 Capsule(s) Oral QAM every morning 02/18/20 23 023 Inactive venlafaxine ER 75 mg capsule,extended release 24 hr RxNorm: 522416 Take 3 Capsule(s) Oral QD 02/04/20 23 023 Inactive FreeStyle Chema 2 Sensor kit RxNorm: use as directed 02/04/20 23 023 Inactive FreeStyle Chema 2 Sensor kit RxNorm: use as directed 02/04/20 23 024 Inactive fluconazole 150 mg tablet RxNorm: 759214 Take 1 Tablet(s) Oral on day 3 and on day 6 02/03/20 024 Inactive venlafaxine ER 150 mg capsule,extended release 24 hr RxNorm: 258066 Take 1 Capsule(s) Oral QD 02/03/20 23 023 Inactive chlorthalidone 25 mg tablet RxNorm: 103825 Take 1 Tablet(s) Oral QAM every morning 02/03/20 23 024 Inactive acetaminophen 500 mg tablet RxNorm: 870137 1 TABLET ORALLY 3 TIMES DAILY (MAX APAP:4GM/24HR) 12/15/19 23 023 Inactive clotrimazole 1 % topical cream RxNorm: 824121 apply 1g topically to top of feet and in between toes BID 12/09/19 23 025 Inactive potassium chloride ER 20 mEq tablet,extended release RxNorm: 879415 Take 1 Tablet(s) Oral BID 12/09/19 23 024 Inactive d/c 20mEq once daily (sent from hospital) nystatin 100,000 unit/gram topical powder RxNorm: 634518 APPLY TO AFFECTED AREAS TOPICALLY 2 TIMES DAILY 11/21/19 23 023 Inactive Nystop 100,000 unit/gram topical powder RxNorm: 278131 Apply to abd folds, under breasts and L side of groin Topical BID x 14 days, then BID PRN 11/20/19 23 023 Inactive dx: yeast dermatitis [place] Ultra Strength 4 %-30 %-10 % topical cream RxNorm: 331508 Apply 1 Gram(s) Topical QID PRN to feet and legs for neuropathic pain 11/11/19 024 Inactive clotrimazole 1 % topical cream RxNorm: 082780 Apply 1/2 Gram(s) Topical BID Apply to affected areas of groin, periarea, and abdominal topically 2 times daily 11/10/19 023 Inactive hydrocortisone 2.5 % topical cream RxNorm: 526094 Apply 1/2 Gram(s) Topical BID as needed 11/10/19 024 Inactive Levemir FlexPen 100 unit/mL (3 mL) solution subcutaneous insulin pen RxNorm: 242384 Inject 30 Unit(s) Subcutaneous BID 10/07/19 023 Inactive Humulin R U-500 (Concentrated) Insulin 500 unit/mL subcutaneous soln RxNorm: 369281 Inject 100 Unit(s) Subcutaneous TID 10/07/19 024 Inactive Ozempic 0.25 mg or 0.5 mg (2 mg/3 mL) subcutaneous pen injector RxNorm: 1510725 Inject 1/2 Milligram(s) Subcutaneous QW once a week 10/07/19 024 Inactive aripiprazole 15 mg tablet RxNorm: 870931 1/2 TAB (7.5MG) ORALLY DAILY (DX:MAJOR DEPRESSIVE DISORDER) 09/23/19 023 Inactive Accu-Chek Guide test strips RxNorm: Use 1 Test Strip QID 09/15/19 23 023 Inactive ok to substitute with any covered alternative test strip Lancets,Thin 28 gauge RxNorm: Use 1 as directed QID 09/15/19 023 Inactive torsemide 20 mg tablet RxNorm: 902038 Take 1 Tablet(s) Oral BID 09/09/19 23 024 Inactive d/c once daily dosing carvedilol 25 mg tablet RxNorm: 669420 Take 1 Tablet(s) Oral QD 08/25/19 024 Inactive pregabalin 150 mg capsule RxNorm: 502465 1 Capsule(s) Oral HS at bed time 08/18/19 23 023 Inactive pregabalin 100 mg capsule RxNorm: 186271 1 Capsule(s) Oral QAM every morning 08/18/19 23 023 Inactive carvedilol 25 mg tablet RxNorm: 579190 1 Tablet(s) Oral QD 07/28/19 23 023 Inactive lisinopril 20 mg tablet RxNorm: 181394 Give 1 Tablet(s) Oral QD 07/28/19 23 023 Inactive Lyrica 150 mg capsule RxNorm: 626737 Take 1 Capsule(s) Oral QHS every night at bedtime 07/19/19 023 Inactive d/c 100mg dose Diflucan 150 mg tablet RxNorm: 072511 Take 1 Tablet(s) Oral QD repeat on day 3 and 6 07/19/19 23 023 Inactive pregabalin 100 mg capsule RxNorm: 302067 Take 1 Capsule(s) Oral QAM every morning 07/19/19 023 Inactive gatifloxacin 0.5 % eye drops RxNorm: 173367 Instill 1 Drop(s) as directed TID Instill 1 drop in to affected eye(s) starting 1 day prior to surgery and continue until gone (do not exceed 4 weeks). 07/13/19 23 023 Inactive carvedilol 25 mg tablet RxNorm: 441663 2 Tablet(s) Oral BID 07/13/19 023 Inactive Humulin R Regular U-100 Insulin 100 unit/mL injection solution RxNorm: 876236 85 Unit(s) Injection TID 07/13/19 23 023 Inactive ketorolac 0.5 % eye drops RxNorm: 427892 Instill 1 Drop(s) as directed QID Instill 1 drop into affected eye(s) 4 times daily starting 1 day prior to surgery and continue until gone (do not exceed 4 weeks). 07/13/19 23 023 Inactive Diflucan 150 mg tablet RxNorm: 922518 Take 1 Tablet(s) Oral QD repeat on day 3 and 6 02/14/ 023 Inactive Accu-Chek Guide test strips RxNorm: Use 1 Test Strip QID Use 1 test strip to monitor blood glucose 4 times daily and as needed. Dx:E11.42. 06/23/19 023 Inactive ok to substitute with any covered alternative test strip dextromethorphan-gu aifenesin 10 mg-100 mg/5 mL oral liquid RxNorm: 692606 Take 10 Milliliter(s) Oral every 4 hours as needed for cough 06/19/19 023 Inactive dextromethorphan-gu aifenesin 10 mg-100 mg/5 mL oral liquid RxNorm: 238240 Take 10 Milliliter(s) Oral every 4 hours as needed for cough 06/19/19 023 Inactive Lyrica 150 mg capsule RxNorm: 410344 Take 1 Capsule(s) Oral QHS every night at bedtime 06/18/19 023 Inactive d/c 100mg dose aripiprazole 15 mg tablet RxNorm: 637688 1/2 TAB (7.5MG) ORALLY DAILY (DX:MAJOR DEPRESSIVE DISORDER) 06/05/19 023 Inactive pregabalin 100 mg capsule RxNorm: 718026 1 Capsule(s) Oral QAM every morning 06/02/19 023 Inactive Banophen 50 mg capsule RxNorm: 0845054 Take 1 Capsule(s) Oral Q6H every 6 hours as needed 05/19/19 23 No Stop Date Active Novolog Flexpen U-100 Insulin aspart 100 unit/mL (3 mL) subcutaneous RxNorm: 4296129 Inject 10 Unit(s) Subcutaneous QHS every night at bedtime with nighttime snack 04/08/20 22 022 Inactive Novolog Flexpen U-100 Insulin aspart 100 unit/mL (3 mL) subcutaneous RxNorm: 3979593 Inject 42 Unit(s) Subcutaneous TID in addition to sliding scale 04/08/20 22 022 Inactive d/c 36u albuterol sulfate HFA 90 mcg/actuation aerosol inhaler RxNorm: 5712159 Take 2 Puff(s) Inhalation Q4H every four hours as needed as needed for SOB, cough, or wheezing 04/07/20 22 030 Active Banophen 50 mg capsule RxNorm: 4718312 Take 1 Capsule(s) Oral Q6H every 6 hours as needed 04/06/20 023 Inactive diphenhydramine 50 mg tablet RxNorm: 9539153 Take 1 Tablet(s) Oral Q6H every 6 hours as needed 04/06/20 22 022 Inactive diphenhydramine 50 mg tablet RxNorm: 0507712 1 Tablet(s) Oral Q6H every 6 hours as needed 04/06/20 022 Inactive Abilify 15 mg tablet RxNorm: 844940 1/2 Tablet(s) Oral QD 03/10/20 023 Inactive Shingrix (PF) 50 mcg/0.5 mL intramuscular suspension, kit RxNorm: 3503668 Administer 1/2 Milliliter(s) Intramuscular QD one time shingrix step 2 ( step 1 given 11/04/21) WITH needle - Nursing please administer upon arrival and once administered post a bridge message with date of administration, assisted living director, expiration date, and lot# so we can update [facility] 02/18/20 22 022 Inactive dispense with needle Shingrix (PF) 50 mcg/0.5 mL intramuscular suspension, kit RxNorm: 8704223 Administer 1/2 Milliliter(s) Intramuscular QD one time shingrix step 2 ( step 1 given 11/04/21) WITH needle - Nursing please administer upon arrival and once administered post a bridge message with date of administration, assisted living director, expiration date, and lot# so we can update [facility] 02/18/20 22 022 Inactive dispense with needle polyethylene glycol 3350 17 gram/dose oral powder RxNorm: 315985 Take 17=1 capful Gram(s) Oral QD mix with 4-8oz of liquid 01/08/20 22 025 Inactive take this in addition to BID prn order Lyrica 100 mg capsule RxNorm: 650582 Take 1 Capsule(s) Oral QAM every morning 01/08/20 22 022 Inactive d/c 50mg dose acetaminophen 500 mg tablet RxNorm: 190506 Take 1 Tablet(s) Oral TID 01/08/20 22 022 Inactive d/c PRN order Lyrica 150 mg capsule RxNorm: 331900 Take 1 Capsule(s) Oral QHS every night at bedtime 01/08/20 22 023 Inactive d/c 100mg dose Abilify 5 mg tablet RxNorm: 939571 Take 1 Tablet(s) Oral QD take 1 tab po QD #30 refill 5 dx: MDD 12/12/19 22 022 Inactive Abilify 5 mg tablet RxNorm: 823096 Take 1 Tablet(s) Oral QD take 1 tab po QD #30 refill 5 dx: MDD 12/12/19 22 022 Inactive Novolog Flexpen U-100 Insulin aspart 100 unit/mL (3 mL) subcutaneous RxNorm: 5721294 Inject 42 Unit(s) Subcutaneous TID in addition to sliding scale 12/10/19 22 Inactive d/c 36u chlorthalidone 25 mg tablet RxNorm: 354687 Take 1 Tablet(s) Oral QAM every morning 12/10/19 22 023 Inactive pregabalin 50 mg capsule RxNorm: 050054 Take 1 Capsule(s) Oral QAM every morning 11/12/19 22 022 Inactive tetanus-diphtheria toxoids-Td 2 Lf unit-2 Lf unit/0.5 mL IM suspension RxNorm: 139 Take 0.5 Miscellaneous Intramuscular 11/12/19 22 022 Inactive need tdap - nursing to administer upon arrival pregabalin 50 mg capsule RxNorm: 709304 Take 1 Capsule(s) Oral QAM every morning 10/16/19 22 022 Inactive pregabalin 50 mg capsule RxNorm: 570681 Take 1 Capsule(s) Oral QAM every morning 10/16/19 22 022 Inactive pregabalin 50 mg capsule RxNorm: 880584 1 Capsule(s) Oral QAM every morning 10/15/19 22 022 Inactive Shingrix (PF) 50 mcg/0.5 mL intramuscular suspension, kit RxNorm: 8877923 Administer 1/2 Milliliter(s) Intramuscular one time Nursing please administer upon arrival and once administered post a bridge message with date of administration, assisted living director, expiration date, and lot# so we can update [facility]. 10/09/19 22 022 Inactive shingrix step 1 Shingrix (PF) 50 mcg/0.5 mL intramuscular suspension, kit RxNorm: 2647177 Administer 1/2 Milliliter(s) Intramuscular one time Nursing please administer upon arrival and once administered post a bridge message with date of administration, assisted living director, expiration date, and lot# so we [...] aspart 100 unit/mL (3 mL) subcutaneous RxNorm: 4337319 Inject 10 Unit(s) Subcutaneous QHS every night at bedtime with nighttime snack 10/08/19 22 Inactive Shingrix (PF) 50 mcg/0.5 mL intramuscular suspension, kit RxNorm: 2058135 ADMINISTER 2-DOSE SERIES PER CDC GUIDELINES 10/08/19 22 Active Shingrix (PF) 50 mcg/0.5 mL intramuscular suspension, kit RxNorm: 9261879 ADMINISTER 2-DOSE SERIES PER CDC GUIDELINES 10/08/19 22 Inactive Novolog Flexpen U-100 Insulin aspart 100 unit/mL (3 mL) subcutaneous RxNorm: 7488873 Inject 36 Unit(s) Subcutaneous TID in addition to sliding scale 10/08/19 22 Inactive cholecalciferol (vitamin D3) 1,250 mcg (50,000 unit) capsule RxNorm: 677710 Take 1 Capsule(s) Oral QW once a week 10/08/19 22 10/30/2 024 Inactive Novofine Autocover 30 gauge x 1/3 needle RxNorm: Use 1 Miscellaneous UD as directed Use 1 needle as directed to administer insulin 5 times a day Dx:E11.42. 10/03/19 Inactive ok to substitute with any covered alternative pen needle benzoyl peroxide 10 % topical cleanser RxNorm: 947041 Apply 1 Application Topical QD apply to face, wash rinse and dry once daily (may change to QOD if drying) 08/19/19 022 Inactive (%covered by insurance) #60ml refill 11 dx: acne benzoyl peroxide 10 % topical cleanser RxNorm: 343314 Apply 1 Application Topical QD apply to face, wash rinse and dry once daily (may change to QOD if drying) 08/19/19 22 022 Inactive (%covered by insurance) #60ml refill 11 dx: acne benzoyl peroxide 10 % topical cleanser RxNorm: 305323 Apply 1 Application Topical QD apply to face, wash rinse and dry once daily (may change to QOD if drying) 08/19/19 22 022 Inactive (%covered by insurance) #60ml refill 11 dx: acne Lyrica 50 mg capsule RxNorm: 406906 Take 1 Capsule(s) Oral QAM every morning Take 1 capsule by mouth once daily 08/19/19 22 022 Inactive benzoyl peroxide 10 % topical cleanser RxNorm: 872464 Apply 1 Application Topical QD apply to face, wash rinse and dry once daily (may change to QOD if drying) 08/19/19 022 Inactive (%covered by insurance) #60ml refill 11 dx: acne Lyrica 100 mg capsule RxNorm: 071129 Take 1 Capsule(s) Oral QHS every night at bedtime Take 1 capsule by mouth once daily at bedtime 08/19/19 22 022 Inactive Lyrica 100 mg capsule RxNorm: 850407 Take 1 Capsule(s) Oral QHS every night at bedtime Take 1 capsule by mouth once daily at bedtime 08/16/19 22 022 Inactive Lyrica 50 mg capsule RxNorm: 243105 Take 1 Capsule(s) Oral QAM every morning Take 1 capsule by mouth once daily 08/16/19 22 022 Inactive Levemir FlexTouch U-100 Insulin 100 unit/mL (3 mL) subcutaneous pen RxNorm: 170526 Inject 86 Unit(s) Subcutaneous BID 08/05/19 22 022 Inactive d/c 83units BID Lyrica 100 mg capsule RxNorm: 992791 Take 1 Capsule(s) Oral QHS every night at bedtime Take 1 capsule by mouth once daily at bedtime 07/14/19 22 022 Inactive Lyrica 50 mg capsule RxNorm: 549014 Take 1 Capsule(s) Oral QAM every morning Take 1 capsule by mouth once daily 07/14/19 22 022 Inactive Levemir FlexTouch U-100 Insulin 100 unit/mL (3 mL) subcutaneous pen RxNorm: 753269 Inject 83 Unit(s) Subcutaneous BID 07/08/19 22 [...] test strip hydralazine 50 mg tablet RxNorm: 077669 Take 1 Tablet(s) Oral QID 05/05/20 21 022 Inactive venlafaxine ER 225 mg tablet,extended release 24 hr RxNorm: 275246 Take 1 Tablet(s) Oral QD 05/05/20 21 Inactive venlafaxine ER 225 mg tablet,extended release 24 hr RxNorm: 382518 Take 1 Tablet(s) Oral QD 05/05/20 022 Inactive isosorbide mononitrate ER 30 mg tablet,extended release 24 hr RxNorm: 271275 Take 1 Tablet(s) Oral QD 05/05/20 024 Inactive hydralazine 50 mg tablet RxNorm: 513140 Take 1 Tablet(s) Oral QID 05/05/20 21 Inactive aspirin 81 mg tablet,delayed release RxNorm: 048206 Take 1 Tablet(s) Oral QD 03/31/20 022 Inactive Vitamin D2 1,250 mcg (50,000 unit) capsule RxNorm: 2896064 Take 1 Capsule(s) Oral QW once a week x 12 weeks 03/31/20 022 Inactive Vitamin D2 1,250 mcg (50,000 unit) capsule RxNorm: 1086681 Take 1 Capsule(s) Oral QW once a week 03/31/20 021 Inactive Zetia 10 mg tablet RxNorm: 936115 Take 1 Tablet(s) Oral QD 03/31/20 21 024 Inactive Zetia 10 mg tablet RxNorm: 624350 Take 1 Tablet(s) Oral QD 03/31/20 21 021 Inactive hydralazine 25 mg tablet RxNorm: 810164 Take 1 Tablet(s) Oral QID 03/31/20 021 Inactive hydralazine 25 mg tablet RxNorm: 389833 Take 1 Tablet(s) Oral QID 03/31/20 021 Inactive hydralazine 10 mg tablet RxNorm: 990930 Take 1 Tablet(s) Oral QID 03/03/20 021 Inactive cephalexin 500 mg tablet RxNorm: 166873 Take 1 Tablet(s) Oral QID 02/27/20 021 Inactive cephalexin 500 mg tablet RxNorm: 039286 Take 1 Tablet(s) Oral QID 02/27/20 021 Inactive lisinopril 40 mg tablet RxNorm: 995904 Take 1 Tablet(s) Oral QD 02/11/20 023 Inactive Eliquis 5 mg tablet RxNorm: 3986657 Take 1 Tablet(s) Oral BID 01/05/20 21 025 Inactive Eliquis 5 mg tablet RxNorm: 6329599 Take 2 Tablet(s) Oral QD 01/01/20 21 021 Inactive Lyrica 50 mg capsule RxNorm: 651217 Take 1 Capsule(s) Oral QAM every morning 12/24/19 021 Inactive Lyrica 100 mg capsule RxNorm: 314265 Take 1 Capsule(s) Oral QHS every night at bedtime 12/24/19 021 Inactive clotrimazole 1 % topical cream RxNorm: 972153 Apply to right foot and toes Topical BID 12/04/19 21 023 Inactive metoprolol succinate ER 200 mg tablet,extended release 24 hr RxNorm: 358063 Take 1 Tablet(s) Oral QD 12/04/19 21 023 Inactive ciprofloxacin 500 mg tablet RxNorm: 021049 Take 1 Tablet(s) Oral QD 11/30/19 21 021 Inactive DX ofloxacin otic drops Accu-Chek Guide test strips RxNorm: USE 1 TO CHECK GLUCOSE 4 TIMES DAILY AND NEEDED 11/15/19 21 023 Inactive Blood Glucose Test strips RxNorm: Use 1 Test Strip QID at PRN 11/05/19 21 023 Inactive E11.42 lisinopril 30 mg tablet RxNorm: 839015 Take 1 Tablet(s) Oral QD 10/30/19 21 021 Inactive lisinopril 20 mg tablet RxNorm: 340880 Take 1 Tablet(s) Oral QD 10/23/19 21 021 Inactive lisinopril 20 mg tablet RxNorm: 259182 Take 1 Tablet(s) Oral QD 10/23/19 21 021 Inactive lisinopril 10 mg tablet RxNorm: 160112 Take 1 Tablet(s) Oral QD 10/02/19 21 021 Inactive icosapent ethyl 1 gram capsule RxNorm: 7674295 Take 2 Capsule(s) (2 gm) Oral BID with meals 09/12/19 21 024 Inactive Okay to dispense one 2gm tab if you have that available. icosapent ethyl 1 gram capsule RxNorm: 4997979 Take 2 Capsule(s) Oral BID 09/12/19 21 021 Inactive Okay to dispense one 2gm tab if you have that available. amlodipine 10 mg tablet RxNorm: 790628 Take 1 Tablet(s) Oral QD 09/04/19 21 021 Inactive aspirin 81 mg tablet,delayed release RxNorm: 390808 Take 1 Tablet(s) Oral QD 09/04/19 21 021 Inactive Levemir FlexTouch U-100 Insulin 100 unit/mL (3 mL) subcutaneous pen RxNorm: 903288 Inject 150 Unit(s) Subcutaneous BID 09/04/19 21 022 Inactive venlafaxine ER 150 mg tablet,extended release 24 hr RxNorm: 277156 Take 1 Tablet(s) Oral QD 09/04/19 21 021 Inactive clotrimazole-betame thasone 1 %-0.05 % topical cream RxNorm: 702395 Apply to rash on red area on left abdomen/chest Topical BID 08/10/19 21 021 Inactive amlodipine 5 mg tablet RxNorm: 106899 Take 1 Tablet(s) Oral QD 07/31/19 21 021 Inactive cephalexin 500 mg tablet RxNorm: 427061 Take 1 Tablet(s) Oral BID BID - Twice Daily 07/31/19 21 021 Inactive Start 08/01/20 senna 8.6 mg tablet RxNorm: 910269 Take 1 Tablet(s) Oral QD 07/08/19 21 025 Inactive pantoprazole 40 mg tablet,delayed release RxNorm: 602379 Take 1 Tablet(s) Oral QAM every morning 07/08/19 025 Inactive clopidogrel 75 mg tablet RxNorm: 083095 Take 1 Tablet(s) Oral QD 07/08/19 21 021 Inactive Blood Glucose Test strips RxNorm: Use 1 Test Strip QID at PRN 07/08/19 21 Inactive E11.42 Novolog Flexpen U-100 Insulin aspart 100 unit/mL (3 mL) subcutaneous RxNorm: 1567378 Administer per sliding scale Milliliter(s) Subcutaneous TID 151-200: 10 u; 201-250: 20 u; 251-300: 30 u; 301-350: 40 u; 351-400: 50 u. 07/08/19 21 022 Inactive lisinopril 5 mg tablet RxNorm: 385414 Take 1 Tablet(s) Oral QD 07/08/19 021 Inactive Novolog Flexpen U-100 Insulin aspart 100 unit/mL (3 mL) subcutaneous RxNorm: 6448287 Inject 85 Unit(s) Subcutaneous TID 07/08/19 022 Inactive pravastatin 80 mg tablet RxNorm: 251598 Take 1 Tablet(s) Oral QHS every night at bedtime 07/08/19 023 Inactive clotrimazole 1 % topical cream RxNorm: 122687 Apply to bilateral groin areas Topical BID 07/08/19 21 022 Inactive metoprolol succinate ER 200 mg tablet,extended release 24 hr RxNorm: 617767 Take 1 Tablet(s) Oral QD 07/08/19 21 021 Inactive Vitamin D3 25 mcg (1,000 unit) tablet RxNorm: 359747 Take 1 Tablet(s) Oral QD 07/08/19 21 021 Inactive isosorbide dinitrate 30 mg tablet RxNorm: 092677 Take 1 Tablet(s) Oral QD 07/08/19 021 Inactive carbamazepine 200 mg tablet RxNorm: 437161 Take 1 Tablet(s) Oral BID 07/08/19 21 025 Inactive Levemir FlexTouch U-100 Insulin 100 unit/mL (3 mL) subcutaneous pen RxNorm: 282137 Inject 140 Unit(s) Subcutaneous BID 07/08/19 021 Inactive torsemide 20 mg tablet RxNorm: 837717 Take 1 Tablet(s) Oral QD 07/08/19 023 Inactive venlafaxine 75 mg tablet RxNorm: 551757 Take 1 Tablet(s) Oral QD 07/08/19 021 Inactive acetaminophen 500 mg tablet RxNorm: 425060 Take 1 Tablet(s) Oral TID as needed for headache 06/18/19 21 021 Inactive acetaminophen 500 mg tablet RxNorm: 271392 Take 1 Tablet(s) Oral TID as needed for headache 06/18/19 021 Inactive Lyrica 100 mg capsule RxNorm: 256962 Take 1 Capsule(s) Oral QHS every night at bedtime 06/11/19 021 Inactive Lyrica 50 mg capsule RxNorm: 690394 Take 1 Capsule(s) Oral QAM every morning 06/10/19 021 Inactive hydrocortisone 2.5 % topical cream RxNorm: 030200 Apply to bilateral groin creases Topical BID 05/15/20 20 021 Inactive clotrimazole 1 % topical cream RxNorm: 918130 Apply to bilateral groin areas Topical BID 05/15/20 20 021 Inactive Lyrica 50 mg capsule RxNorm: 285525 Take 1 Capsule(s) Oral QAM every morning 05/14/20 20 020 Inactive Lyrica 100 mg capsule RxNorm: 581290 Take 1 Capsule(s) Oral QHS every night [...] Inactive Nystop 100,000 unit/gram topical powder RxNorm: 050742 Apply to abd folds, under breasts and L side of groin Topical BID x 14 days, then BID PRN 04/08/20 20 Inactive dx: yeast dermatitis Lyrica 100 mg capsule RxNorm: 983939 Take 1 Capsule(s) Oral QHS every night at bedtime 03/13/20 20 Inactive Lyrica 50 mg capsule RxNorm: 093017 Take 1 Capsule(s) Oral QAM every morning 03/13/20 20 Inactive ketoconazole 2 % shampoo RxNorm: 357877 Apply Topical two times a week with showers 03/11/20 20 024 Inactive cholecalciferol (vitamin D3) 50 mcg (2,000 unit) tablet RxNorm: 416909 Take 1 Tablet(s) Oral QD 03/11/20 20 021 Inactive Zetia 10 mg tablet RxNorm: 951609 Take 1 Tablet(s) Oral QD 03/07/20 20 021 Inactive Zetia 10 mg tablet RxNorm: 778193 Take 1 Tablet(s) Oral QD 03/07/20 20 Inactive Lyrica 50 mg capsule RxNorm: 352186 Take 1 Capsule(s) Oral QAM every morning 02/15/20 20 Inactive Lyrica 100 mg capsule RxNorm: 900749 Take 1 Capsule(s) Oral QHS every night at bedtime 02/15/20 020 Inactive Lyrica 100 mg capsule RxNorm: 121001 Take 1 Capsule(s) Oral QHS every night at bedtime 02/15/20 20 020 Inactive Lyrica 50 mg capsule RxNorm: 047815 Take 1 Capsule(s) Oral QAM every morning 02/15/20 20 020 Inactive loperamide 2 mg capsule RxNorm: 393767 Take 1 Capsule(s) Oral QID as needed 09/06/19 025 Inactive venlafaxine ER 75 mg capsule,extended release 24 hr RxNorm: 799967 Take 3 Capsule(s) Oral QD 06/12/19 023 Inactive polyethylene glycol 3350 17 gram/dose oral powder RxNorm: 655775 Take 17=1 capful Gram(s) Oral BID as needed mix with 4-8oz of liquid 06/12/19 22 024 Inactive icosapent ethyl 1 gram capsule RxNorm: 1961509 Take 2 Capsule(s) (2 gm) Oral BID with meals 10/07/19 023 Inactive Okay to dispense one 2gm tab if you have that available. Levemir FlexTouch U-100 Insulin 100 unit/mL (3 mL) subcutaneous pen RxNorm: 465398 Inject 80 Unit(s) Subcutaneous BID 07/14/19 23 023 Inactive metoprolol succinate ER 200 mg tablet,extended release 24 hr RxNorm: 462952 Take 1 Tablet(s) Oral QD 08/12/19 025 Inactive hydralazine 50 mg tablet RxNorm: 727643 Take 1 Tablet(s) Oral QID 08/12/19 025 Inactive Soft Touch Lancets RxNorm: miscellaneous 03/04/20 24 025 Inactive Novolog Flexpen U-100 Insulin aspart 100 unit/mL (3 mL) subcutaneous RxNorm: 0463994 Insert 30 Unit(s) Subcutaneous TID with meals [...] Encounter Performer Location Location Address Codes Date ([address]) Home or Residence Visit Est Pt - Moderate Level, 40 mins Diagnosis: Diabetic neuropathy associated with type 2 diabetes mellitus[ICD10: E11.40] Diagnosis: Lower extremity edema[ICD10: R60.0] Diagnosis: PVD (peripheral vascular disease)[ICD10: I73.9] Diagnosis: Type 2 diabetes mellitus with diabetic polyneuropathy, with long-term current use of insulin[ICD10: E11.42] Diagnosis: Hemorrhoids[ICD10 : K64.9] Harrison Munson [facility] [address] [place] [address] CPT-4: 23542 07/11/2024 Plan of Care Planned Activity Notes Codes Status Date Referral: [facility] Radiology/Imaging WPtel: [address] [facility] [place] Referral Appointment Scheduled 10/20/2024 Patient Education: Patient Medication Summary Completed 07/11/2024 Patient Education: Influenza Complet ed 07/11/2024 Referral: [facility]/Endocrinology WPtel: [address] [place], [place] [id number] [place] Referral No Records Received 07/10/2024 Appointment: Brian Munson WPtel: [address] [place], [place] [id number] [place] AWV 02/08/2024 Appointment: Brian Munson WPtel: [address] [place], [place] [id number] [place] F/U 01/11/2024 Appointment: Sandra Clark WPtel: [address] [place], [place] [phone] Telehealth Psych Follow Up 12/09 Appointment: Tapan Shirley WPtel: [address] TCM 10/26/2022 [facility] [address] [id number] [place] Referral Records Received 09/21/2022 Appointment: Tapan Shirley WPtel: [address] [facility] [address] [id number] [place] F/U 08/11/2022 Appointment: Tapan Shirley WPtel: [address] [facility] [address] [id number] [place] F/U 07/14/2022 Appointment: Tapan Shirley WPtel: [address] [facility] [address] [id number] [place] F/U 02/10/2022 Referral: [facility] WPtel: [address] [id number] [place] Referral Completed 05/28/2021 Referral: General Cardiology [...] Sister Jyotsna involved in his care cell# [phone] Guardian: Giulia (tapan met in person 09/01/21), [...] appointment 05.26.2024 with Jessa Webster MD at [facility]. Start Pioglitazone 15 mg QD. Stop [...] called today after our visit - no answer. Will make note to call back at another time to discuss APCM program. Lower extremity edema Chronic non pitting edema Compression socks daily and elevation of legs when sitting Continue Torsemide 20 mg QD and potassium 40mEq BID supplementation Monitor at each visit for skin integrity concerns Proper hygiene is important Hemorrhoids Had specialty appointment - no new recommendations No longer struggling with hemorrhoids at this time Continue to monitor PVD (peripheral vascular disease) Complicated by severe obesity, CAD, DM2 Continue Torsemide and potassium supplementation High risk for skin breakdown and poor wound healing Monitor BLE at each visit Peter requesting moisturizing lotion - will ask nursing staff if they can get him some Diabetic neuropathy associated with type 2 diabetes 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 Started Pioglitazone 15 mg QD. Stop Basaglar insulin. Increase Ozempic 2 mg once wkly. Continue Humalin R U-500 100 units with meals TID. FOLLOW UP 2 MONTHS. If BG >400 add 50 units to next scheduled dose of Humalin R U 500 insulin. Continue close follow up with new cello teacher. Continue medication regimen set forth by specialty team. PCP will defer diabetes management for specialist although will follow up on BG log at each visit and continue to encourage healthy dietary intake and increased physical activity as able. . 07/11/2024
--- OUTSIDE RECORDS SUMMARY | 2024-10-19 19:38 | XMS_ITS | CCD ---
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 unit) capsule RxNorm: 0958012 Take 1 Capsule(s) Oral QW once a week x 12 weeks 03/31/20 022 Inactive Vitamin D2 1,250 mcg (50,000 unit) capsule RxNorm: 3768482 Take 1 Capsule(s) Oral QW once a week 03/31/20 021 Inactive Zetia 10 mg tablet RxNorm: 465747 Take 1 Tablet(s) Oral QD 03/31/20 024 Inactive Zetia 10 mg tablet RxNorm: 953259 Take 1 Tablet(s) Oral QD 03/31/20 021 Inactive hydralazine 25 mg tablet RxNorm: 077467 Take 1 Tablet(s) Oral QID 03/31/20 21 021 Inactive hydralazine 25 mg tablet RxNorm: 358622 Take 1 Tablet(s) Oral QID 03/31/20 021 Inactive hydralazine 10 mg tablet RxNorm: 802175 Take 1 Tablet(s) Oral QID 03/03/20 021 Inactive cephalexin 500 mg tablet RxNorm: 840085 Take 1 Tablet(s) Oral QID 02/27/20 021 Inactive cephalexin 500 mg tablet RxNorm: 223727 Take 1 Tablet(s) Oral QID 02/27/20 021 Inactive lisinopril 40 mg tablet RxNorm: 592646 Take 1 Tablet(s) Oral QD 02/11/20 21 023 Inactive Eliquis 5 mg tablet RxNorm: 7838148 Take 1 Tablet(s) Oral BID 01/05/20 21 025 Inactive Eliquis 5 mg tablet RxNorm: 2989139 Take 2 Tablet(s) Oral QD 01/01/20 21 021 Inactive Lyrica 50 mg capsule RxNorm: 751608 Take 1 Capsule(s) Oral QAM every morning 12/24/19 21 021 Inactive Lyrica 100 mg capsule RxNorm: 396525 Take 1 Capsule(s) Oral QHS every night at bedtime 12/24/19 21 021 Inactive clotrimazole 1 % topical cream RxNorm: 999601 Apply to right foot and toes Topical BID 12/04/19 21 023 Inactive metoprolol succinate ER 200 mg tablet,extended release 24 hr RxNorm: 056253 Take 1 Tablet(s) Oral QD 12/04/19 21 023 Inactive ciprofloxacin 500 mg tablet RxNorm: 729078 Take 1 Tablet(s) Oral QD 11/30/19 21 021 Inactive DX ofloxacin otic drops Accu-Chek Guide test strips RxNorm: USE 1 TO CHECK GLUCOSE 4 TIMES DAILY AND NEEDED 11/15/19 21 023 Inactive Blood Glucose Test strips RxNorm: Use 1 Test Strip QID at PRN 11/05/19 21 023 Inactive E11.42 lisinopril 30 mg tablet RxNorm: 654325 Take 1 Tablet(s) Oral QD 10/30/19 021 Inactive lisinopril 20 mg tablet RxNorm: 073854 Take 1 Tablet(s) Oral QD 10/23/19 21 021 Inactive lisinopril 20 mg tablet RxNorm: 748570 Take 1 Tablet(s) Oral QD 10/23/19 21 021 Inactive lisinopril 10 mg tablet RxNorm: 444548 Take 1 Tablet(s) Oral QD 10/02/19 21 021 Inactive icosapent ethyl 1 gram capsule RxNorm: 5600693 Take 2 Capsule(s) (2 gm) Oral BID with meals 09/12/19 21 024 Inactive Okay to dispense one 2gm tab if you have that available. icosapent ethyl 1 gram capsule RxNorm: 7759576 Take 2 Capsule(s) Oral BID 09/12/19 21 021 Inactive Okay to dispense one 2gm tab if you have that available. amlodipine 10 mg tablet RxNorm: 178471 Take 1 Tablet(s) Oral QD 09/04/19 21 021 Inactive aspirin 81 mg tablet,delayed release RxNorm: 054576 Take 1 Tablet(s) Oral QD 09/04/19 21 021 Inactive Levemir FlexTouch U-100 Insulin 100 unit/mL (3 mL) subcutaneous pen RxNorm: 404523 Inject 150 Unit(s) Subcutaneous BID 09/04/19 21 022 Inactive venlafaxine ER 150 mg tablet,extended release 24 hr RxNorm: 498064 Take 1 Tablet(s) Oral QD 09/04/19 021 Inactive clotrimazole-betame thasone 1 %-0.05 % topical cream RxNorm: 349780 Apply to rash on red area on left abdomen/chest Topical BID 08/10/19 21 021 Inactive amlodipine 5 mg tablet RxNorm: 070992 Take 1 Tablet(s) Oral QD 07/31/19 21 021 Inactive cephalexin 500 mg tablet RxNorm: 321585 Take 1 Tablet(s) Oral BID BID - Twice Daily 07/31/19 21 021 Inactive Start 08/01/20 pantoprazole 40 mg tablet,delayed release RxNorm: 673432 Take 1 Tablet(s) Oral QAM every morning 07/08/19 025 Inactive senna 8.6 mg tablet RxNorm: 662584 Take 1 Tablet(s) Oral QD 07/08/19 025 Inactive carbamazepine 200 mg tablet RxNorm: 494200 Take 1 Tablet(s) Oral BID 07/08/19 21 025 Inactive clopidogrel 75 mg tablet RxNorm: 752214 Take 1 Tablet(s) Oral QD 07/08/19 021 Inactive Blood Glucose Test strips RxNorm: Use 1 Test Strip QID at PRN 07/08/19 21 021 Inactive E11.42 Novolog Flexpen U-100 Insulin aspart 100 unit/mL (3 mL) subcutaneous RxNorm: 2522952 Administer per sliding scale Milliliter(s) Subcutaneous TID 151-200: 10 u; 201-250: 20 u; 251-300: 30 u; 301-350: 40 u; 351-400: 50 u. 07/08/19 21 022 Inactive lisinopril 5 mg tablet RxNorm: 329067 Take 1 Tablet(s) Oral QD 07/08/19 021 Inactive Novolog Flexpen U-100 Insulin aspart 100 unit/mL (3 mL) subcutaneous RxNorm: 5280600 Inject 85 Unit(s) Subcutaneous TID 07/08/19 022 Inactive pravastatin 80 mg tablet RxNorm: 366985 Take 1 Tablet(s) Oral QHS every night at bedtime 07/08/19 023 Inactive clotrimazole 1 % topical cream RxNorm: 644395 Apply to bilateral groin areas Topical BID 07/08/19 022 Inactive metoprolol succinate ER 200 mg tablet,extended release 24 hr RxNorm: 513980 Take 1 Tablet(s) Oral QD 07/08/19 021 Inactive Vitamin D3 25 mcg (1,000 unit) tablet RxNorm: 414604 Take 1 Tablet(s) Oral QD 07/08/19 021 Inactive isosorbide dinitrate 30 mg tablet RxNorm: 479991 Take 1 Tablet(s) Oral QD 07/08/19 021 Inactive Levemir FlexTouch U-100 Insulin 100 unit/mL (3 mL) subcutaneous pen RxNorm: 768992 Inject 140 Unit(s) Subcutaneous BID 07/08/19 021 Inactive torsemide 20 mg tablet RxNorm: 059487 Take 1 Tablet(s) Oral QD 07/08/19 023 Inactive venlafaxine 75 mg tablet RxNorm: 395389 Take 1 Tablet(s) Oral QD 07/08/19 021 Inactive acetaminophen 500 mg tablet RxNorm: 116875 Take 1 Tablet(s) Oral TID as needed for headache 06/18/19 21 021 Inactive acetaminophen 500 mg tablet RxNorm: Take 1 Tablet(s) Oral TID as needed for headache 02/02/ 021 Inactive Lyrica 100 mg capsule RxNorm: 470904 Take 1 Capsule(s) Oral QHS every night at bedtime 06/11/19 21 021 Inactive Lyrica 50 mg capsule RxNorm: 320663 Take 1 Capsule(s) Oral QAM every morning 06/10/19 21 021 Inactive hydrocortisone 2.5 % topical cream RxNorm: 907493 Apply to bilateral groin creases Topical BID 05/15/20 20 021 Inactive clotrimazole 1 % topical cream RxNorm: 815645 Apply to bilateral groin areas Topical BID 05/15/20 20 021 Inactive Lyrica 50 mg capsule RxNorm: 261327 Take 1 Capsule(s) Oral QAM every morning 05/14/20 20 020 Inactive Lyrica 100 mg capsule RxNorm: 185298 Take 1 Capsule(s) Oral QHS every night [...] Inactive Nystop 100,000 unit/gram topical powder RxNorm: 389136 Apply to abd folds, under breasts and L side of groin Topical BID x 14 days, then BID PRN 04/08/20 20 020 Inactive dx: yeast dermatitis Lyrica 100 mg capsule RxNorm: 760509 Take 1 Capsule(s) Oral QHS every night at bedtime 03/13/20 20 Inactive Lyrica 50 mg capsule RxNorm: 983041 Take 1 Capsule(s) Oral QAM every morning 03/13/20 20 Inactive ketoconazole 2 % shampoo RxNorm: 887181 Apply Topical two times a week with showers 03/11/20 20 024 Inactive cholecalciferol (vitamin D3) 50 mcg (2,000 unit) tablet RxNorm: 601684 Take 1 Tablet(s) Oral QD 03/11/20 20 021 Inactive Zetia 10 mg tablet RxNorm: 794962 Take 1 Tablet(s) Oral QD 03/07/20 20 021 Inactive Zetia 10 mg tablet RxNorm: 897823 Take 1 Tablet(s) Oral QD 03/07/20 20 Inactive Lyrica 50 mg capsule RxNorm: 801146 Take 1 Capsule(s) Oral QAM every morning 02/15/20 20 Inactive Lyrica 100 mg capsule RxNorm: 114494 Take 1 Capsule(s) Oral QHS every night at bedtime 02/15/20 20 Inactive Lyrica 100 mg capsule RxNorm: 177256 Take 1 Capsule(s) Oral QHS every night at bedtime 02/15/20 20 Inactive Lyrica 50 mg capsule RxNorm: 364859 Take 1 Capsule(s) Oral QAM every morning 02/15/20 20 Inactive metoprolol succinate ER 200 mg tablet,extended release 24 hr RxNorm: 877375 Take 1 Tablet(s) Oral QD 08/12/19 025 Inactive loperamide 2 mg capsule RxNorm: 171064 Take 1 Capsule(s) Oral QID as needed 09/06/19 025 Inactive hydralazine 50 mg tablet RxNorm: 176757 Take 1 Tablet(s) Oral QID 08/12/19 025 Inactive venlafaxine ER 75 mg capsule,extended release 24 hr RxNorm: 569086 Take 3 Capsule(s) Oral QD 06/12/19 22 023 Inactive polyethylene glycol 3350 17 gram/dose oral powder RxNorm: 931727 Take 17=1 capful Gram(s) Oral BID as needed mix with 4-8oz of liquid 06/12/19 024 Inactive icosapent ethyl 1 gram capsule RxNorm: 2141260 Take 2 Capsule(s) (2 gm) Oral BID with meals 10/07/19 23 023 Inactive Okay to dispense one 2gm tab if you have that available. Levemir FlexTouch U-100 Insulin 100 unit/mL (3 mL) subcutaneous pen RxNorm: 120195 Inject 80 Unit(s) Subcutaneous BID 07/14/19 023 Inactive Soft Touch Lancets RxNorm: miscellaneous 03/04/20 24 025 Inactive Novolog Flexpen U-100 Insulin aspart 100 unit/mL (3 mL) subcutaneous RxNorm: 8127073 Insert 30 Unit(s) Subcutaneous TID with meals [...] Referral: [facility] Radiology/Imaging WPtel: [address] [id number] [place] Referral Appointment Scheduled 10/20/[address]: [facility]/Endocrinology WPtel: [address] [facility] [address] [id number] [place] Referral No Records Received 07/10/2024 Referral: [facility] WPtel: [phone] , [address] [id number] [place] Referral Records Received 09/21/2022 Referral: [facility] WPtel: [address] [facility] [address] [id number] [place] Referral Completed 05/28/2021 Referral: General Cardiology [...] Sister Jyotsna involved in his care cell# [phone] Guardian: Giulia (tapan met in person 09/01/21), [...]
--- OUTSIDE RECORDS SUMMARY | 2024-10-19 19:40 | XMS_ITS | CCD ---
Author Organization Unknown Care Team Providers Care Routing Clerk Name Role Phone Harrison Durham Primary Care Provider Leona vailable Unavailable Chronic Care Management Unavaila ble Summary Purpose DataExchange Insurance Providers Payer name Policy type / Coverage type Covered green party ID Effective Begin Date Effective End Date [place] Part B [id number] Unknown Unknown Medicaid [place] Medicare Part B [id number] Unknown Unknown Family history Sister Brittany Suggs [...] on file 07/11/[address]: 902199907 Never smoker 01/16 Sexually Active? 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 ICD-10: K59.01 ICD-9: 564.01 09/05/2024 Active Hypokalemia ICD-10: E87.6 ICD-9: 276.8 09/05/[address]24 [address]ose stools SNOMED CT: 470512144 ICD-10: R19.5 ICD-9: 787.7 09/05/2024 Active Stage 2 chronic kidney disea se due to type 2 diabetes mellitus ICD-10: E11.22 ICD-9: 250.40 09/05/2024 Active Type 2 diabetes mellitus wit h diabetic polyneuropathy, with long-term current use of insulin ICD-10: E11.42 ICD-9: 250.60 09/05/2024 Active Body mass index [BMI] 60.0-69.9, adult SNOMED CT: 616276868 ICD-10: Z68.44 ICD-9: V85.44 08/08/2024 Active Mixed incontinence SNOMED CT: 39665168 ICD-10: N39.46 ICD-9: 788.33 08/08/2024 Active Diabetic [...] E78. 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 Other shelter (current) dr ug therapy ICD-10: Z79.899 ICD-9: [...] roasterman (current) use of insulin ICD-10: Z79.4 02/10/2022 [...] Fill Instructions loperamide 2 mg tablet RxNorm: 006386 Take 2 Tablet(s) Oral UD as directed [...] Date Active senna 8.6 mg tablet RxNorm: 159590 Take 1 Tablet(s) Oral QD as needed and 1 tab BID prn 09/06/19 No Stop Date Active cyclobenzaprine 10 mg tablet RxNorm: 096387 Take 1 Tablet(s) Oral QHS every night at bedtime as needed 09/06/19 No Stop Date Active loperamide 2 mg tablet RxNorm: 388602 Take 2 Tablet(s) Oral UD as directed as needed 2 tabs after first loose stool then 1 tab after each subsequent stool PRN Do not exceed 4 doses in 24 hours. Do not administer until after 3 loose stools. 09/06/19 026 Active pioglitazone 15 mg tablet RxNorm: 485328 Take 1 Tablet(s) Oral QD 09/06/19 No Stop Date Active loperamide 2 mg tablet RxNorm: 907687 Take 2 Tablet(s) Oral UD as directed as needed 2 tabs after first loose stool then 1 tab after each subsequent stool PRN Do not exceed 4 doses in 24 hours. Do not administer until after 3 loose stools. 09/06/19 025 Inactive pregabalin 100 mg capsule RxNorm: 993447 1 CAPSULE BY MOUTH EVERY MORNING (DX: NEUROPATHY) 08/23/19 25 025 Active FACILITY IS REQUESTING REFILL. PRIOR RX HAS BEEN EXHAUSTED. THANK YOU. pregabalin 150 mg capsule RxNorm: 481566 1 CAPSULE BY MOUTH AT BEDTIME (DX: NEUROPATHY) 08/21/19 25 025 Active FACILITY IS REQUESTING A REFILL OF THIS MEDICATION, THANK YOU! senna 8.6 mg tablet RxNorm: 539928 Take 1 Tablet(s) Oral QD as needed for constipation on day 2 of no bowel movement 08/09/19 25 025 Inactive Miralax 17 gram/dose oral powder RxNorm: 892145 Administer 17 Gram(s) Oral QD as needed for constipation on day 3 of no bowel movement 08/09/19 25 025 Inactive senna 8.6 mg tablet RxNorm: 594912 Take 1 Tablet(s) Oral QD as needed for constipation on day 2 of no bowel movement 08/09/19 25 025 Inactive Miralax 17 gram/dose oral powder RxNorm: 115231 Administer 17 Gram(s) Oral QD as needed for constipation on day 3 of no bowel movement 08/09/19 25 025 Inactive pregabalin 100 mg capsule RxNorm: 156199 Take 1 Capsule(s) Oral QAM every morning [...] (Concentrated) Insulin 500 unit/mL subcutaneous soln RxNorm: 077066 Inject 100 Unit(s) Subcutaneous AC before meals Three times daily before meals. 07/24/19 25 025 Inactive ammonium lactate 12 % topical cream RxNorm: 949252 Apply 1 Application Topical BID 07/20/19 25 No Stop Date Active ezetimibe 10 mg tablet RxNorm: 767986 Take 1 Tablet(s) Oral QD 07/18/19 25 No Stop Date Active senna 8.6 mg tablet RxNorm: 507536 Take 1 Tablet(s) Oral QD 07/18/19 25 025 Inactive metoprolol succinate ER 200 mg tablet,extended release 24 hr RxNorm: 284736 Take 1 Tablet(s) Oral QD 06/19/19 25 No Stop Date Active pantoprazole 40 mg tablet,delayed release RxNorm: 643094 Take 1 Tablet(s) Oral QAM every morning 06/19/19 25 No Stop Date Active hydralazine 50 mg tablet RxNorm: 278887 Take 1 Tablet(s) Oral QID 06/19/19 25 No Stop Date Active carbamazepine 200 mg tablet RxNorm: 873353 Take 1 Tablet(s) Oral BID 06/19/19 25 No Stop Date Active amlodipine 10 mg tablet RxNorm: 323050 Take 1 Tablet(s) Oral QD 06/19/19 25 No Stop Date Active Eliquis 5 mg tablet RxNorm: 8432151 Take 1 Tablet(s) Oral BID 06/19/19 25 No Stop Date Active pen needle, diabetic 30 gauge x 3/16 RxNorm: Use 1 6 times per day w/insulin 06/14/19 25 026 Active pen needle, diabetic 30 gauge x 07/30 RxNorm: Use 1 needle 6 times per day w/insulin 06/14/19 25 025 Inactive nystatin 100,000 unit/gram topical powder RxNorm: 221166 Apply 1 Application Topical BID as needed abdominal/breast /groin folds 05/24/19 25 026 Active pregabalin 100 mg capsule RxNorm: 828409 Take 1 Capsule(s) Oral QAM every morning 05/22/19 025 Inactive nystatin 100,000 unit/gram topical powder RxNorm: 288219 Apply 1 Application Topical BID as needed abdominal/breast /groin folds 04/11/20 024 Inactive chlorthalidone 25 mg tablet RxNorm: 088104 Take 1 Tablet(s) Oral QAM every morning 04/06/20 No Stop Date Active pregabalin 150 mg capsule RxNorm: 351012 Take 1 Capsule(s) Oral QHS every night at bedtime 03/31/20 024 Inactive Vascepa 1 gram capsule RxNorm: 0261552 Take 2 Capsule(s) Oral BID 03/30/20 025 Active rosuvastatin 40 mg tablet RxNorm: 841296 1 TAB ORALLY EVERY EVENING (DX:CORONARY ARTERY DISEASE) 03/28/20 No Stop Date Active venlafaxine ER 75 mg capsule,extended release 24 hr RxNorm: 180899 3 CAPS (225MG) ORALLY DAILY (DX: MOOD DISORDER) 03/28/20 No Stop Date Active pregabalin 100 mg capsule RxNorm: 851729 Take 1 Capsule(s) Oral QAM every morning 03/20/20 024 Inactive cholecalciferol (vitamin D3) 1,250 mcg (50,000 unit) capsule RxNorm: 762669 Take 1 Capsule(s) Oral QW once a week 03/15/20 025 Active Lancets,Thin 28 gauge RxNorm: Use 1 as directed TID lancet 03/08/20 024 Inactive Lancets,Thin 28 gauge RxNorm: Use 1 as directed TID lancet 03/08/20 Inactive Pen Needle 30 gauge x 09/29 [...] Insulin 100 unit/mL (3 mL) subcutaneous RxNorm: 6921973 Inject 40 Unit(s) Subcutaneous BID 03/07/20 Inactive Please dispense one month supply. Humulin R U-500 (Concentrated) Insulin 500 unit/mL subcutaneous soln RxNorm: 659277 Inject 100 Unit(s) Subcutaneous AC before meals [...] PRN) to be use with new Accu Udell meter 03/04/20 Inactive ok to substitute with any covered alternative test strip FreeStyle Chema 2 Sensor kit RxNorm: Use UD as directed 03/02/20 Inactive Pen Needle 30 gauge x 16 RxNorm: Pen(s) Use 1 needle as directed TID 03/02/20 Inactive nystatin 100,000 unit/gram topical powder RxNorm: 543870 Apply 1 Application Topical BID as needed abdominal/breast /groin folds 03/02/20 24 024 Inactive FreeStyle Chema 2 [...] (Concentrated) Insulin 500 unit/mL subcutaneous soln RxNorm: 621715 Inject 100 Unit(s) Subcutaneous TID 02/17/20 24 024 Inactive Humulin R U-500 (Concentrated) Insulin 500 unit/mL subcutaneous soln RxNorm: 868286 Inject 100 Unit(s) Subcutaneous TID 02/10/20 24 024 Inactive Basaglar KwikPen U-100 Insulin 100 unit/mL (3 mL) subcutaneous RxNorm: 7308468 Inject 30 Unit(s) Subcutaneous BID 02/10/20 24 024 Inactive Please dispense one month supply. pregabalin 100 mg capsule RxNorm: 469524 Take 1 Capsule(s) Oral QAM every morning 02/07/20 24 024 Inactive isosorbide mononitrate ER 60 mg tablet,extended release 24 hr RxNorm: 553522 Take 1 Tablet(s) Oral QD 02/01/20 24 025 Active aripiprazole 15 mg tablet RxNorm: 240084 Take 1/2 Tablet(s) Oral QD 02/01/20 24 025 Active torsemide 20 mg tablet RxNorm: 445465 1 TAB ORALLY DAILY (DX: EDEMA) 01/27/20 24 No Stop Date Active potassium chloride ER 20 mEq tablet,extended release(part/cryst) RxNorm: 7642759 2 TABS (40MEQ) ORALLY TWICE DAILY (DX: HYPOKALEMIA) 01/27/20 24 Inactive cephalexin 500 mg capsule RxNorm: 458859 Take 1 Capsule(s) Oral QID 12/17/19 24 Inactive cephalexin 500 mg capsule RxNorm: 734618 Take 1 Capsule(s) Oral QID 12/17/19 24 Inactive acetaminophen 500 mg tablet RxNorm: 637449 (MAX APAP:4GM/24HR) Take 1 Tablet(s) Oral TID as needed for pain 12/10/19 24 Inactive torsemide 20 mg tablet RxNorm: 512909 Take 1 Tablet(s) Oral QD 10/26/19 24 Inactive potassium chloride ER 20 mEq tablet,extended release RxNorm: 19800522 Take 2 Tablet(s) Oral BID 10/26/19 24 Inactive torsemide 20 mg tablet RxNorm: 422162 Take 1 Tablet(s) Oral QD 10/26/19 24 Inactive potassium chloride ER 20 mEq tablet,extended release RxNorm: 19800522 Take 2 Tablet(s) Oral BID 10/26/19 24 Inactive Artificial Tears (PF) 0.1 %-0.3 % drops in a dropperette RxNorm: 260184 Apply 1-2 Drop(s) Both eyes BID as needed 09/28/19 24 Inactive erythromycin 5 mg/gram (0.5 %) eye ointment RxNorm: 951379 Apply 1 Application Both eyes QHS every night at bedtime Instill ~1 cm ribbon into affected eye 09/28/19 24 Inactive Artificial Tears (PF) 0.1 %-0.3 % drops in a dropperette RxNorm: 079866 Apply 1-2 Drop(s) Both eyes BID as needed 09/28/19 24 024 Inactive erythromycin 5 mg/gram (0.5 %) eye ointment RxNorm: 724842 Apply 1 Application Both eyes QHS every night at bedtime Instill ~1 cm ribbon into affected eye 09/28/19 24 Inactive acetaminophen 500 mg tablet RxNorm: 048278 (MAX APAP:4GM/24HR) Take 1 Tablet(s) Oral TID as needed for pain 09/24/19 24 024 Inactive carvedilol 25 mg tablet RxNorm: 086643 Take 1 Tablet(s) Oral QD 09/08/19 24 No Stop Date Active pregabalin 100 mg capsule RxNorm: 279167 Take 1 Capsule(s) Oral QAM every morning 09/07/19 24 024 Inactive bisacodyl 10 mg rectal suppository RxNorm: 555712 Insert 1 Suppository Rectal QD as needed 07/13/19 24 No Stop Date Active ketoconazole 2 % shampoo RxNorm: 754752 Apply 1 Application Topical UD as directed 07/13/19 24 No Stop Date Active Ozempic 1 mg/dose (4 mg/3 mL) subcutaneous pen injector RxNorm: 2571372 Inject 1 Milligram(s) Subcutaneous QW once a week 07/13/19 24 No Stop Date Active Guaifenesin AC 10 mg-100 mg/5 mL oral liquid RxNorm: 884914 Take 10 Milliliter(s) Oral Q4H every four hours as needed 07/13/19 24 No Stop Date Active hydrocortisone 2.5 % topical cream RxNorm: 264252 Apply 1 Application Topical BID as needed 07/13/19 24 No Stop Date Active rosuvastatin 40 mg tablet RxNorm: 289181 Take 1 Tablet(s) Oral QPM every evening 07/13/19 24 024 Inactive ezetimibe 10 mg tablet RxNorm: 597438 Take 1 Tablet(s) Oral QD 07/13/19 24 025 Inactive polyethylene glycol 3350 17 gram/dose oral powder RxNorm: 622248 Take 17 Gram(s) Oral BID as needed mix in 4-8ox water 07/13/19 24 025 Inactive aripiprazole 15 mg tablet RxNorm: 643973 Take 1/2 Tablet(s) Oral QD 07/13/19 24 024 Inactive isosorbide mononitrate ER 60 mg tablet,extended release 24 hr RxNorm: 465559 Take 1 Tablet(s) Oral QD 07/13/19 24 024 Inactive ammonium lactate 12 % topical cream RxNorm: 999262 Apply 1 Application Topical BID 07/13/19 24 025 Inactive rosuvastatin 20 mg sprinkle capsule RxNorm: 5522758 Take 1 Capsule(s) Oral QD 07/13/19 24 025 Inactive Vascepa 1 gram capsule RxNorm: 8100611 Take 2 Capsule(s) Oral BID 07/13/19 24 024 Inactive venlafaxine ER 75 mg capsule,extended release 24 hr RxNorm: 319008 Take 3 Capsule(s) Oral QD 07/13/19 24 024 Inactive Basaglar KwikPen U-100 Insulin 100 unit/mL (3 mL) subcutaneous RxNorm: 6756020 Inject 30U SubQ twice daily 07/07/19 24 024 Inactive Please dispense one month supply. Basaglar KwikPen U-100 Insulin 100 unit/mL (3 mL) subcutaneous RxNorm: 4282188 Inject 30U SubQ twice daily 07/07/19 24 024 Inactive Please dispense one month supply. pregabalin 150 mg capsule RxNorm: 954656 Take 1 Capsule(s) Oral QHS every night at bedtime 07/05/19 24 024 Inactive pregabalin 150 mg capsule RxNorm: 797434 Take 1 Capsule(s) Oral QHS every night at bedtime 07/05/19 24 024 Inactive polyethylene glycol 3350 17 gram/dose oral powder RxNorm: 783862 Take 1 Packet Oral QD as needed (1 packet = 17g) mix with 4-8oz of liquid 06/15/19 24 024 Inactive bisacodyl 10 mg rectal suppository RxNorm: 131335 Insert one suppository per rectum once daily as needed for constipation 06/15/19 24 024 Inactive bisacodyl 10 mg rectal suppository RxNorm: 887041 Insert one suppository per rectum once daily as needed for constipation 06/15/19 24 024 Inactive pregabalin 100 mg capsule RxNorm: 877063 Take 1 Capsule(s) Oral QAM every morning 04/27/20 23 024 Inactive Levemir FlexPen 100 unit/mL (3 mL) solution subcutaneous insulin pen RxNorm: 021508 Inject 30 Unit(s) Subcutaneous BID 04/27/20 23 024 Inactive rosuvastatin 40 mg tablet RxNorm: 365657 Take 1 Tablet(s) Oral QPM every evening 04/16/20 024 Inactive D/C rosuvastatin 20mg venlafaxine ER 75 mg capsule,extended release 24 hr RxNorm: 554829 Take 3 Capsule(s) Oral QD 04/14/20 023 Inactive pregabalin 100 mg capsule RxNorm: 337507 Take 1 Capsule(s) Oral QAM every morning [...] strip clotrimazole 1 % topical cream RxNorm: 020457 Take apply topically to abdominal folds twice daily for 14 days 03/12/20 024 Inactive Ozempic 1 mg/dose (4 mg/3 mL) subcutaneous pen injector RxNorm: 5223854 Inject 1 Milligram(s) Subcutaneous QW once a week 03/11/20 023 Inactive rosuvastatin 20 mg tablet RxNorm: 636688 Take 1 Tablet(s) Oral QD 02/26/20 023 Inactive d/c pravastatin 80mg Ozempic 1 mg/dose (4 mg/3 mL) subcutaneous pen injector RxNorm: 9185681 Inject 1 Milligram(s) Subcutaneous QW once a week 02/20/20 023 Inactive pregabalin 150 mg capsule RxNorm: 747522 Take 1 Capsule(s) Oral HS at bed time 02/19/20 23 023 Inactive pregabalin 100 mg capsule RxNorm: 420608 Take 1 Capsule(s) Oral QAM every morning 02/18/20 23 023 Inactive venlafaxine ER 75 mg capsule,extended release 24 hr RxNorm: 113329 Take 3 Capsule(s) Oral QD 02/04/20 23 023 Inactive FreeStyle Chema 2 Sensor kit RxNorm: use as directed 02/04/20 23 023 Inactive FreeStyle Chema 2 Sensor kit RxNorm: use as directed 02/04/20 23 024 Inactive fluconazole 150 mg tablet RxNorm: 359713 Take 1 Tablet(s) Oral on day 3 and on day 6 02/03/20 23 024 Inactive venlafaxine ER 150 mg capsule,extended release 24 hr RxNorm: 108951 Take 1 Capsule(s) Oral QD 02/03/20 23 023 Inactive chlorthalidone 25 mg tablet RxNorm: 514201 Take 1 Tablet(s) Oral QAM every morning 02/03/20 23 024 Inactive acetaminophen 500 mg tablet RxNorm: 083495 1 TABLET ORALLY 3 TIMES DAILY (MAX APAP:4GM/24HR) 12/15/19 23 023 Inactive potassium chloride ER 20 mEq tablet,extended release RxNorm: 879596 Take 1 Tablet(s) Oral BID 12/09/19 23 024 Inactive d/c 20mEq once daily (sent from hospital) clotrimazole 1 % topical cream RxNorm: 641405 apply 1g topically to top of feet and in between toes BID 12/09/19 23 025 Inactive nystatin 100,000 unit/gram topical powder RxNorm: 253078 APPLY TO AFFECTED AREAS TOPICALLY 2 TIMES DAILY 11/21/19 23 023 Inactive Nystop 100,000 unit/gram topical powder RxNorm: 827670 Apply to abd folds, under breasts and L side of groin Topical BID x 14 days, then BID PRN 11/20/19 23 023 Inactive dx: yeast dermatitis [place] Ultra Strength 4 %-30 %-10 % topical cream RxNorm: 599809 Apply 1 Gram(s) Topical QID PRN to feet and legs for neuropathic pain 06/27/ 024 Inactive clotrimazole 1 % topical cream RxNorm: 391616 Apply 1/2 Gram(s) Topical BID Apply to affected areas of groin, periarea, and abdominal topically 2 times daily 11/10/19 023 Inactive hydrocortisone 2.5 % topical cream RxNorm: 697738 Apply 1/2 Gram(s) Topical BID as needed 11/10/19 024 Inactive Levemir FlexPen 100 unit/mL (3 mL) solution subcutaneous insulin pen RxNorm: 565669 Inject 30 Unit(s) Subcutaneous BID 10/07/19 023 Inactive Humulin R U-500 (Concentrated) Insulin 500 unit/mL subcutaneous soln RxNorm: 466408 Inject 100 Unit(s) Subcutaneous TID 10/07/19 024 Inactive Ozempic 0.25 mg or 0.5 mg (2 mg/3 mL) subcutaneous pen injector RxNorm: 3541618 Inject 1/2 Milligram(s) Subcutaneous QW once a week 10/07/19 024 Inactive aripiprazole 15 mg tablet RxNorm: 522773 1/2 TAB (7.5MG) ORALLY DAILY (DX:MAJOR DEPRESSIVE DISORDER) 09/23/19 023 Inactive Accu-Chek Guide test strips RxNorm: Use 1 Test Strip QID 09/15/19 23 023 Inactive ok to substitute with any covered alternative test strip Lancets,Thin 28 gauge RxNorm: Use 1 as directed QID 09/15/19 23 023 Inactive torsemide 20 mg tablet RxNorm: 950228 Take 1 Tablet(s) Oral BID 09/09/19 23 024 Inactive d/c once daily dosing carvedilol 25 mg tablet RxNorm: 931745 Take 1 Tablet(s) Oral QD 08/25/19 23 024 Inactive pregabalin 150 mg capsule RxNorm: 573493 1 Capsule(s) Oral HS at bed time 08/18/19 23 023 Inactive pregabalin 100 mg capsule RxNorm: 507976 1 Capsule(s) Oral QAM every morning 08/18/19 23 023 Inactive carvedilol 25 mg tablet RxNorm: 624759 1 Tablet(s) Oral QD 07/28/19 23 023 Inactive lisinopril 20 mg tablet RxNorm: 109211 Give 1 Tablet(s) Oral QD 07/28/19 23 023 Inactive Lyrica 150 mg capsule RxNorm: 775692 Take 1 Capsule(s) Oral QHS every night at bedtime 07/19/19 023 Inactive d/c 100mg dose Diflucan 150 mg tablet RxNorm: 944732 Take 1 Tablet(s) Oral QD repeat on day 3 and 6 07/19/19 23 023 Inactive pregabalin 100 mg capsule RxNorm: 772242 Take 1 Capsule(s) Oral QAM every morning 07/19/19 023 Inactive gatifloxacin 0.5 % eye drops RxNorm: 566163 Instill 1 Drop(s) as directed TID Instill 1 drop in to affected eye(s) starting 1 day prior to surgery and continue until gone (do not exceed 4 weeks). 07/13/19 23 023 Inactive carvedilol 25 mg tablet RxNorm: 069018 2 Tablet(s) Oral BID 07/13/19 023 Inactive Humulin R Regular U-100 Insulin 100 unit/mL injection solution RxNorm: 868256 85 Unit(s) Injection TID 07/13/19 23 023 Inactive ketorolac 0.5 % eye drops RxNorm: 824153 Instill 1 Drop(s) as directed QID Instill 1 drop into affected eye(s) 4 times daily starting 1 day prior to surgery and continue until gone (do not exceed 4 weeks). 07/13/19 23 023 Inactive Diflucan 150 mg tablet RxNorm: 958764 Take 1 Tablet(s) Oral QD repeat on day 3 and 6 06/30/19 23 023 Inactive Accu-Chek Guide test strips RxNorm: Use 1 Test Strip QID Use 1 test strip to monitor blood glucose 4 times daily and as needed. Dx:E11.42. 02/07 023 Inactive ok to substitute with any covered alternative test strip dextromethorphan-gu aifenesin 10 mg-100 mg/5 mL oral liquid RxNorm: 047090 Take 10 Milliliter(s) Oral every 4 hours as needed for cough 06/19/19 023 Inactive dextromethorphan-gu aifenesin 10 mg-100 mg/5 mL oral liquid RxNorm: 087928 Take 10 Milliliter(s) Oral every 4 hours as needed for cough 06/19/19 023 Inactive Lyrica 150 mg capsule RxNorm: 447023 Take 1 Capsule(s) Oral QHS every night at bedtime 06/18/19 023 Inactive d/c 100mg dose aripiprazole 15 mg tablet RxNorm: 191216 /2 TAB (7.5MG) ORALLY DAILY (DX:MAJOR DEPRESSIVE DISORDER) 06/05/19 023 Inactive pregabalin 100 mg capsule RxNorm: 044848 1 Capsule(s) Oral QAM every morning 06/02/19 023 Inactive Banophen 50 mg capsule RxNorm: 7726383 Take 1 Capsule(s) Oral Q6H every 6 hours as needed 05/19/19 23 No Stop Date Active Novolog Flexpen U-100 Insulin aspart 100 unit/mL (3 mL) subcutaneous RxNorm: 7666372 Inject 10 Unit(s) Subcutaneous QHS every night at bedtime with nighttime snack 04/08/20 022 Inactive Novolog Flexpen U-100 Insulin aspart 100 unit/mL (3 mL) subcutaneous RxNorm: 5362096 Inject 42 Unit(s) Subcutaneous TID in addition to sliding scale 04/08/20 022 Inactive d/c 36u albuterol sulfate HFA 90 mcg/actuation aerosol inhaler RxNorm: 4109460 Take 2 Puff(s) Inhalation Q4H every four hours as needed as needed for SOB, cough, or wheezing 04/07/20 030 Active Banophen 50 mg capsule RxNorm: 1949860 Take 1 Capsule(s) Oral Q6H every 6 hours as needed 04/06/20 023 Inactive diphenhydramine 50 mg tablet RxNorm: 2172215 Take 1 Tablet(s) Oral Q6H every 6 hours as needed 04/06/20 22 022 Inactive diphenhydramine 50 mg tablet RxNorm: 2970577 1 Tablet(s) Oral Q6H every 6 hours as needed 04/06/20 22 022 Inactive Abilify 15 mg tablet RxNorm: 802176 1/2 Tablet(s) Oral QD 03/10/20 22 023 Inactive Shingrix (PF) 50 mcg/0.5 mL intramuscular suspension, kit RxNorm: 3437997 Administer 1/2 Milliliter(s) Intramuscular QD one time shingrix step 2 ( step 1 given 11/04/21) WITH needle - Nursing please administer upon arrival and once administered post a bridge message with 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, 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, expiration date, and lot# so we can update [facility] 02/18/20 22 022 Inactive dispense with needle Shingrix (PF) 50 mcg/0.5 mL intramuscular suspension, kit RxNorm: 4526938 Administer 1/2 Milliliter(s) Intramuscular QD one time shingrix step 2 ( step 1 given 11/04/21) WITH needle - Nursing please administer upon arrival and once administered post a bridge message with 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, 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, 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, and lot# so we can update [facility] 02/18/20 22 022 Inactive dispense with needle Lyrica 100 mg capsule RxNorm: 027434 Take 1 Capsule(s) Oral QAM every morning 01/08/20 22 022 Inactive d/c 50mg dose acetaminophen 500 mg tablet RxNorm: 940648 Take 1 Tablet(s) Oral TID 01/08/20 22 022 Inactive d/c PRN order Lyrica 150 mg capsule RxNorm: 210211 Take 1 Capsule(s) Oral QHS every night at bedtime 01/08/20 22 023 Inactive d/c 100mg dose polyethylene glycol 3350 17 gram/dose oral powder RxNorm: 233739 Take 17=1 capful Gram(s) Oral QD mix with 4-8oz of liquid 01/08/20 22 025 Inactive take this in addition to BID prn order Abilify 5 mg tablet RxNorm: 777642 Take 1 Tablet(s) Oral QD take 1 tab po QD #30 refill 5 dx: MDD 12/12/19 22 022 Inactive Abilify 5 mg tablet RxNorm: 709158 Take 1 Tablet(s) Oral QD take 1 tab po QD #30 refill 5 dx: MDD 12/12/19 22 022 Inactive Novolog Flexpen U-100 Insulin aspart 100 unit/mL (3 mL) subcutaneous RxNorm: 6869982 Inject 42 Unit(s) Subcutaneous TID in addition to sliding scale 12/10/19 22 022 Inactive d/c 36u chlorthalidone 25 mg tablet RxNorm: 629347 Take 1 Tablet(s) Oral QAM every morning 12/10/19 22 023 Inactive pregabalin 50 mg capsule RxNorm: 412118 Take 1 Capsule(s) Oral QAM every morning 11/12/19 22 022 Inactive tetanus-diphtheria toxoids-Td 2 Lf unit-2 Lf unit/0.5 mL IM suspension RxNorm: 139 Take 0.5 Miscellaneous Intramuscular 11/12/19 22 022 Inactive need tdap - nursing to administer upon arrival pregabalin 50 mg capsule RxNorm: 064494 Take 1 Capsule(s) Oral QAM every morning 10/16/19 22 022 Inactive pregabalin 50 mg capsule RxNorm: 332798 Take 1 Capsule(s) Oral QAM every morning 10/16/19 22 022 Inactive pregabalin 50 mg capsule RxNorm: 555709 1 Capsule(s) Oral QAM every morning 10/15/19 22 022 Inactive Shingrix (PF) 50 mcg/0.5 mL intramuscular suspension, kit RxNorm: 8323533 Administer 1/2 Milliliter(s) Intramuscular one time Nursing please administer upon arrival and once administered post a bridge message with 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, expiration date, and lot# so we [...] aspart 100 unit/mL (3 mL) subcutaneous RxNorm: 0573474 Inject 10 Unit(s) Subcutaneous QHS every night at bedtime with nighttime snack 10/08/19 22 022 Inactive Shingrix (PF) 50 mcg/0.5 mL intramuscular suspension, kit RxNorm: 9303054 ADMINISTER 2-DOSE SERIES PER CDC GUIDELINES 10/08/19 22 022 Active Shingrix (PF) 50 mcg/0.5 mL intramuscular suspension, kit RxNorm: 6682769 ADMINISTER 2-DOSE SERIES PER CDC GUIDELINES 10/08/19 22 022 Inactive Novolog Flexpen U-100 Insulin aspart 100 unit/mL (3 mL) subcutaneous RxNorm: 6239785 Inject 36 Unit(s) Subcutaneous TID in addition to sliding scale 10/08/19 22 022 Inactive cholecalciferol (vitamin D3) 1,250 mcg (50,000 unit) capsule RxNorm: 884678 Take 1 Capsule(s) Oral QW once a week 10/08/19 22 024 Inactive Novofine Autocover 30 gauge x 1/3 needle RxNorm: Use 1 Miscellaneous UD as directed Use 1 needle as directed to administer insulin 5 times a day Dx:E11.42. 10/03/19 22 022 Inactive ok to substitute with any covered alternative pen needle benzoyl peroxide 10 % topical cleanser RxNorm: 981392 Apply 1 Application Topical QD apply to face, wash rinse and dry once daily (may change to QOD if drying) 08/19/19 22 022 Inactive (%covered by insurance) #60ml refill 11 dx: acne benzoyl peroxide 10 % topical cleanser RxNorm: 128204 Apply 1 Application Topical QD apply to face, wash rinse and dry once daily (may change to QOD if drying) 08/19/19 22 022 Inactive (%covered by insurance) #60ml refill 11 dx: acne benzoyl peroxide 10 % topical cleanser RxNorm: 693884 Apply 1 Application Topical QD apply to face, wash rinse and dry once daily (may change to QOD if drying) 08/19/19 22 022 Inactive (%covered by insurance) #60ml refill 11 dx: acne Lyrica 50 mg capsule RxNorm: 934962 Take 1 Capsule(s) Oral QAM every morning Take 1 capsule by mouth once daily 08/19/19 22 022 Inactive benzoyl peroxide 10 % topical cleanser RxNorm: 665312 Apply 1 Application Topical QD apply to face, wash rinse and dry once daily (may change to QOD if drying) 08/19/19 22 022 Inactive (%covered by insurance) #60ml refill 11 dx: acne Lyrica 100 mg capsule RxNorm: 297451 Take 1 Capsule(s) Oral QHS every night at bedtime Take 1 capsule by mouth once daily at bedtime 08/19/19 22 022 Inactive Lyrica 100 mg capsule RxNorm: 983968 Take 1 Capsule(s) Oral QHS every night at bedtime Take 1 capsule by mouth once daily at bedtime 08/16/19 022 Inactive Lyrica 50 mg capsule RxNorm: 599024 Take 1 Capsule(s) Oral QAM every morning Take 1 capsule by mouth once daily 08/16/19 22 Inactive Levemir FlexTouch U-100 Insulin 100 unit/mL (3 mL) subcutaneous pen RxNorm: 542546 Inject 86 Unit(s) Subcutaneous BID 08/05/19 22 022 Inactive d/c 83units BID Lyrica 100 mg capsule RxNorm: 209781 Take 1 Capsule(s) Oral QHS every night at bedtime Take 1 capsule by mouth once daily at bedtime 07/14/19 22 022 Inactive Lyrica 50 mg capsule RxNorm: 861005 Take 1 Capsule(s) Oral QAM every morning Take 1 capsule by mouth once daily 07/14/19 22 022 Inactive Levemir FlexTouch U-100 Insulin 100 unit/mL (3 mL) subcutaneous pen RxNorm: 112231 Inject 83 Unit(s) Subcutaneous BID 07/08/19 22 [...] test strip hydralazine 50 mg tablet RxNorm: 040656 Take 1 Tablet(s) Oral QID 05/05/20 21 022 Inactive venlafaxine ER 225 mg tablet,extended release 24 hr RxNorm: 951898 Take 1 Tablet(s) Oral QD 05/05/20 021 Inactive venlafaxine ER 225 mg tablet,extended release 24 hr RxNorm: 132238 Take 1 Tablet(s) Oral QD 05/05/20 022 Inactive isosorbide mononitrate ER 30 mg tablet,extended release 24 hr RxNorm: 720646 Take 1 Tablet(s) Oral QD 05/05/20 024 Inactive hydralazine 50 mg tablet RxNorm: 861983 Take 1 Tablet(s) Oral QID 05/05/20 21 Inactive aspirin 81 mg tablet,delayed release RxNorm: 907174 Take 1 Tablet(s) Oral QD 03/31/20 022 Inactive Vitamin D2 1,250 mcg (50,000 unit) capsule RxNorm: 8493534 Take 1 Capsule(s) Oral QW once a week x 12 weeks 03/31/20 022 Inactive Vitamin D2 1,250 mcg (50,000 unit) capsule RxNorm: 1516723 Take 1 Capsule(s) Oral QW once a week 03/31/20 021 Inactive Zetia 10 mg tablet RxNorm: 721755 Take 1 Tablet(s) Oral QD 03/31/20 024 Inactive Zetia 10 mg tablet RxNorm: 615359 Take 1 Tablet(s) Oral QD 03/31/20 021 Inactive hydralazine 25 mg tablet RxNorm: 770406 Take 1 Tablet(s) Oral QID 03/31/20 21 021 Inactive hydralazine 25 mg tablet RxNorm: 788004 Take 1 Tablet(s) Oral QID 03/31/20 021 Inactive hydralazine 10 mg tablet RxNorm: 340734 Take 1 Tablet(s) Oral QID 03/03/20 021 Inactive cephalexin 500 mg tablet RxNorm: 704528 Take 1 Tablet(s) Oral QID 02/27/20 021 Inactive cephalexin 500 mg tablet RxNorm: 242906 Take 1 Tablet(s) Oral QID 02/27/20 021 Inactive lisinopril 40 mg tablet RxNorm: 147401 Take 1 Tablet(s) Oral QD 02/11/20 023 Inactive Eliquis 5 mg tablet RxNorm: 4820745 Take 1 Tablet(s) Oral BID 01/05/20 21 025 Inactive Eliquis 5 mg tablet RxNorm: 3123866 Take 2 Tablet(s) Oral QD 01/01/20 21 021 Inactive Lyrica 50 mg capsule RxNorm: 536101 Take 1 Capsule(s) Oral QAM every morning 12/24/19 21 021 Inactive Lyrica 100 mg capsule RxNorm: 271615 Take 1 Capsule(s) Oral QHS every night at bedtime 12/24/19 21 021 Inactive clotrimazole 1 % topical cream RxNorm: 511316 Apply to right foot and toes Topical BID 12/04/19 21 023 Inactive metoprolol succinate ER 200 mg tablet,extended release 24 hr RxNorm: 608833 Take 1 Tablet(s) Oral QD 12/04/19 023 Inactive ciprofloxacin 500 mg tablet RxNorm: 433516 Take 1 Tablet(s) Oral QD 11/30/19 21 021 Inactive DX ofloxacin otic drops Accu-Chek Guide test strips RxNorm: USE 1 TO CHECK GLUCOSE 4 TIMES DAILY AND NEEDED 11/15/19 21 023 Inactive Blood Glucose Test strips RxNorm: Use 1 Test Strip QID at PRN 11/05/19 21 023 Inactive E11.42 lisinopril 30 mg tablet RxNorm: 207099 Take 1 Tablet(s) Oral QD 10/30/19 21 021 Inactive lisinopril 20 mg tablet RxNorm: 935165 Take 1 Tablet(s) Oral QD 10/23/19 21 021 Inactive lisinopril 20 mg tablet RxNorm: 388688 Take 1 Tablet(s) Oral QD 10/23/19 21 021 Inactive lisinopril 10 mg tablet RxNorm: 518920 Take 1 Tablet(s) Oral QD 10/02/19 21 021 Inactive icosapent ethyl 1 gram capsule RxNorm: 1449533 Take 2 Capsule(s) (2 gm) Oral BID with meals 09/12/19 21 024 Inactive Okay to dispense one 2gm tab if you have that available. icosapent ethyl 1 gram capsule RxNorm: 3603205 Take 2 Capsule(s) Oral BID 09/12/19 21 021 Inactive Okay to dispense one 2gm tab if you have that available. amlodipine 10 mg tablet RxNorm: 985656 Take 1 Tablet(s) Oral QD 09/04/19 21 021 Inactive aspirin 81 mg tablet,delayed release RxNorm: 816830 Take 1 Tablet(s) Oral QD 09/04/19 21 021 Inactive Levemir FlexTouch U-100 Insulin 100 unit/mL (3 mL) subcutaneous pen RxNorm: 867984 Inject 150 Unit(s) Subcutaneous BID 09/04/19 21 022 Inactive venlafaxine ER 150 mg tablet,extended release 24 hr RxNorm: 726042 Take 1 Tablet(s) Oral QD 09/04/19 21 021 Inactive clotrimazole-betame thasone 1 %-0.05 % topical cream RxNorm: 119611 Apply to rash on red area on left abdomen/chest Topical BID 08/10/19 21 021 Inactive amlodipine 5 mg tablet RxNorm: 461376 Take 1 Tablet(s) Oral QD 07/31/19 21 021 Inactive cephalexin 500 mg tablet RxNorm: 120551 Take 1 Tablet(s) Oral BID BID - Twice Daily 07/31/19 21 021 Inactive Start 08/01/20 pantoprazole 40 mg tablet,delayed release RxNorm: 936911 Take 1 Tablet(s) Oral QAM every morning 07/08/19 21 025 Inactive clopidogrel 75 mg tablet RxNorm: 896097 Take 1 Tablet(s) Oral QD 07/08/19 021 Inactive Blood Glucose Test strips RxNorm: Use 1 Test Strip QID at PRN 07/08/19 21 021 Inactive E11.42 senna 8.6 mg tablet RxNorm: 832816 Take 1 Tablet(s) Oral QD 07/08/19 21 025 Inactive Novolog Flexpen U-100 Insulin aspart 100 unit/mL (3 mL) subcutaneous RxNorm: 0510818 Administer per sliding scale Milliliter(s) Subcutaneous TID 151-200: 10 u; 201-250: 20 u; 251-300: 30 u; 301-350: 40 u; 351-400: 50 u. 07/08/19 022 Inactive lisinopril 5 mg tablet RxNorm: 813224 Take 1 Tablet(s) Oral QD 07/08/19 021 Inactive Novolog Flexpen U-100 Insulin aspart 100 unit/mL (3 mL) subcutaneous RxNorm: 4314895 Inject 85 Unit(s) Subcutaneous TID 07/08/19 022 Inactive pravastatin 80 mg tablet RxNorm: 810907 Take 1 Tablet(s) Oral QHS every night at bedtime 07/08/19 023 Inactive clotrimazole 1 % topical cream RxNorm: 650638 Apply to bilateral groin areas Topical BID 07/08/19 21 022 Inactive metoprolol succinate ER 200 mg tablet,extended release 24 hr RxNorm: 890778 Take 1 Tablet(s) Oral QD 07/08/19 21 021 Inactive Vitamin D3 25 mcg (1,000 unit) tablet RxNorm: 660544 Take 1 Tablet(s) Oral QD 07/08/19 21 021 Inactive isosorbide dinitrate 30 mg tablet RxNorm: 339282 Take 1 Tablet(s) Oral QD 07/08/19 21 021 Inactive carbamazepine 200 mg tablet RxNorm: 858990 Take 1 Tablet(s) Oral BID 07/08/19 21 025 Inactive Levemir FlexTouch U-100 Insulin 100 unit/mL (3 mL) subcutaneous pen RxNorm: 036134 Inject 140 Unit(s) Subcutaneous BID 07/08/19 21 021 Inactive torsemide 20 mg tablet RxNorm: 371523 Take 1 Tablet(s) Oral QD 07/08/19 21 023 Inactive venlafaxine 75 mg tablet RxNorm: 183675 Take 1 Tablet(s) Oral QD 07/08/19 21 021 Inactive acetaminophen 500 mg tablet RxNorm: 093187 Take 1 Tablet(s) Oral TID as needed for headache 06/18/19 21 021 Inactive acetaminophen 500 mg tablet RxNorm: 213870 Take 1 Tablet(s) Oral TID as needed for headache 06/18/19 21 021 Inactive Lyrica 100 mg capsule RxNorm: 064128 Take 1 Capsule(s) Oral QHS every night at bedtime 06/11/19 021 Inactive Lyrica 50 mg capsule RxNorm: 553831 Take 1 Capsule(s) Oral QAM every morning 06/10/19 21 021 Inactive hydrocortisone 2.5 % topical cream RxNorm: 365236 Apply to bilateral groin creases Topical BID 05/15/20 20 021 Inactive clotrimazole 1 % topical cream RxNorm: 964617 Apply to bilateral groin areas Topical BID 05/15/20 20 021 Inactive Lyrica 50 mg capsule RxNorm: 491644 Take 1 Capsule(s) Oral QAM every morning 05/14/20 20 020 Inactive Lyrica 100 mg capsule RxNorm: 327277 Take 1 Capsule(s) Oral QHS every night [...] Inactive Nystop 100,000 unit/gram topical powder RxNorm: 485319 Apply to abd folds, under breasts and L side of groin Topical BID x 14 days, then BID PRN 04/08/20 20 Inactive dx: yeast dermatitis Lyrica 100 mg capsule RxNorm: 499166 Take 1 Capsule(s) Oral QHS every night at bedtime 03/13/20 20 Inactive Lyrica 50 mg capsule RxNorm: 245702 Take 1 Capsule(s) Oral QAM every morning 03/13/20 20 Inactive ketoconazole 2 % shampoo RxNorm: 405113 Apply Topical two times a week with showers 03/11/20 20 Inactive cholecalciferol (vitamin D3) 50 mcg (2,000 unit) tablet RxNorm: 220037 Take 1 Tablet(s) Oral QD 03/11/20 20 021 Inactive Zetia 10 mg tablet RxNorm: 308763 Take 1 Tablet(s) Oral QD 03/07/20 20 021 Inactive Zetia 10 mg tablet RxNorm: 255958 Take 1 Tablet(s) Oral QD 03/07/20 20 Inactive Lyrica 50 mg capsule RxNorm: 073591 Take 1 Capsule(s) Oral QAM every morning 02/15/20 20 Inactive Lyrica 100 mg capsule RxNorm: 444411 Take 1 Capsule(s) Oral QHS every night at bedtime 02/15/20 20 Inactive Lyrica 100 mg capsule RxNorm: 321152 Take 1 Capsule(s) Oral QHS every night at bedtime 02/15/20 20 020 Inactive Lyrica 50 mg capsule RxNorm: 011081 Take 1 Capsule(s) Oral QAM every morning 02/15/20 20 020 Inactive venlafaxine ER 75 mg capsule,extended release 24 hr RxNorm: 601597 Take 3 Capsule(s) Oral QD 06/12/19 22 023 Inactive polyethylene glycol 3350 17 gram/dose oral powder RxNorm: 988195 Take 17=1 capful Gram(s) Oral BID as needed mix with 4-8oz of liquid 06/12/19 22 024 Inactive icosapent ethyl 1 gram capsule RxNorm: 3669326 Take 2 Capsule(s) (2 gm) Oral BID with meals 10/07/19 023 Inactive Okay to dispense one 2gm tab if you have that available. Levemir FlexTouch U-100 Insulin 100 unit/mL (3 mL) subcutaneous pen RxNorm: 340639 Inject 80 Unit(s) Subcutaneous BID 07/14/19 23 023 Inactive metoprolol succinate ER 200 mg tablet,extended release 24 hr RxNorm: 724956 Take 1 Tablet(s) Oral QD 08/12/19 23 025 Inactive loperamide 2 mg capsule RxNorm: 626014 Take 1 Capsule(s) Oral QID as needed 09/06/19 25 025 Inactive hydralazine 50 mg tablet RxNorm: 740736 Take 1 Tablet(s) Oral QID 08/12/19 23 025 Inactive Soft Touch Lancets RxNorm: miscellaneous 03/04/20 24 025 Inactive Novolog Flexpen U-100 Insulin aspart 100 unit/mL (3 mL) subcutaneous RxNorm: 3923395 Insert 30 Unit(s) Subcutaneous TID with meals [...] [facility] [address] [id number] [place] Referral Appointment Scheduled 10/20/2024 Referral: [facility]Endocrinology WPtel: [address], [address] [id number] [place] Referral No Records Received 07/10/2024 Referral: [facility] WPtel: [address], [address] [id number] [place] Referral Records Received 09/21/2022 Referral: [facility] WPtel: [address] [id number] [place] Referral Completed 05/28/2021 Referral: General Cardiology [...] Sister Jyotsna involved in his care cell# [phone] Guardian: Giulia (tapan met in person 09/01/21), [...] 88.Colon & Rectal Surgery visit scheduled for 2. with Matilde Pérez PA-C. Endocrinology appointment 05.26.2024 with Jessa Webster MD at [facility]. Start Pioglitazone 15 mg QD. Stop Basaglar insulin. Increase Ozempic 2 mg once wkly. Continue Humalin R U-500 100 units with meals TID. FOLLOW UP 2 MONTHS. If BG >400 add 50 units to next scheduled dose of Humalin R U 500 insulin 06/12/2024
--- OUTSIDE RECORDS SUMMARY | 2024-10-19 19:41 | XMS_ITS | CCD ---
Author Organization Unknown Care Team Providers Care Greens Cutter Name Role Phone Harrison Durham Primary Care Provider Leona vailable Unavailable Chronic Care Management Unavaila ble Summary Purpose DataExchange Insurance Providers Payer name Policy type / Coverage type Covered green party ID Effective Begin Date Effective End Date [place] [id number] Unknown Unknown [place] Part B [id number] Unknown Unknown Family history Sister Brittany Suggs Diagnosis Age At Onset No Family Disease Entered N/A Runs in the family Diagnosis Age At Onset No Known Diseases N/A Sister Blanka Mcduffie Diagnosis Age At Onset No Family Disease Entered N/A Social History Social History Element Codes Description Effec tive Dates Tobacco history SNOMED CT: 179902060 Never smoker 01/16 Sexually Active? Unknown No [...] Fpc 09/03/[address]: 531243966 No Alcohol Consum ption 09/02/2020 Allergies, Adverse Reactions, Alerts Substance Reaction Codes Entered Date Inactivated Date Status * NO KNOWN FOOD ALLERGIES Unknown 07/13/2023 No Inactive Date Active LISINOPRIL RxNorm: 73701 02/12/2020 No Inactive Da te Active Metformin [...] E78. 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 Other assisted (current) dr ug therapy ICD-10: Z79.899 ICD-9: [...] 09/07/2023 Resolved Coronary artery disease invo lving [place] coronary [...] Fill Instructions Vascepa 1 gram capsule RxNorm: 5415307 Take 2 Capsule(s) Oral BID 03/30/20 025 Active rosuvastatin 40 mg tablet RxNorm: 616837 1 TAB ORALLY EVERY EVENING (DX:CORONARY ARTERY DISEASE) 03/28/20 No Stop Date Active venlafaxine ER 75 mg capsule,extended release 24 hr RxNorm: 497332 3 CAPS (225MG) ORALLY DAILY (DX: MOOD DISORDER) 03/28/20 No Stop Date Active pregabalin 100 mg capsule RxNorm: 418280 Take 1 Capsule(s) Oral QAM every morning 03/20/20 24 024 Inactive cholecalciferol (vitamin D3) 1,250 mcg (50,000 unit) capsule RxNorm: 710389 Take 1 Capsule(s) Oral QW once a [...] Insulin 100 unit/mL (3 mL) subcutaneous RxNorm: 8249932 Inject 40 Unit(s) Subcutaneous BID 03/07/20 025 Inactive Please dispense one month supply. Humulin R U-500 (Concentrated) Insulin 500 unit/mL subcutaneous soln RxNorm: 015879 Inject 100 Unit(s) Subcutaneous AC before meals [...] PRN) to be use with new Accu [place] meter 03/04/20 024 Inactive ok to substitute with any covered alternative test strip FreeStyle Chema 2 Sensor kit RxNorm: Use UD as directed 03/02/20 025 Inactive FreeStyle Chema 2 Sensor kit RxNorm: Use UD as directed 03/02/20 024 Inactive Pen Needle 30 gauge x 5/16 RxNorm: Pen(s) Use 1 needle as directed TID 03/02/20 024 Inactive nystatin 100,000 unit/gram topical powder RxNorm: 672744 Apply 1 Application Topical BID as needed [...] (Concentrated) Insulin 500 unit/mL subcutaneous soln RxNorm: 537746 Inject 100 Unit(s) Subcutaneous TID 02/17/20 24 024 Inactive Humulin R U-500 (Concentrated) Insulin 500 unit/mL subcutaneous soln RxNorm: 029038 Inject 100 Unit(s) Subcutaneous TID 02/10/20 24 024 Inactive Basaglar KwikPen U-100 Insulin 100 unit/mL (3 mL) subcutaneous RxNorm: 7242360 Inject 30 Unit(s) Subcutaneous BID 02/10/20 24 024 Inactive Please dispense one month supply. pregabalin 100 mg capsule RxNorm: 451550 Take 1 Capsule(s) Oral QAM every morning 02/07/20 24 024 Inactive isosorbide mononitrate ER 60 mg tablet,extended release 24 hr RxNorm: 100798 Take 1 Tablet(s) Oral QD 02/01/20 24 025 Active aripiprazole 15 mg tablet RxNorm: 617316 Take 1/2 Tablet(s) Oral QD 02/01/20 24 025 Active torsemide 20 mg tablet RxNorm: 362304 1 TAB ORALLY DAILY (DX: EDEMA) 01/27/20 24 No Stop Date Active potassium chloride ER 20 mEq tablet,extended release(part/cryst) RxNorm: 1461585 2 TABS (40MEQ) ORALLY TWICE DAILY (DX: HYPOKALEMIA) 09/12/20 24 04/29/2 025 Inactive cephalexin 500 mg capsule RxNorm: 520794 Take 1 Capsule(s) Oral QID 12/17/19 24 Inactive cephalexin 500 mg capsule RxNorm: 889468 Take 1 Capsule(s) Oral QID 12/17/19 24 Inactive acetaminophen 500 mg tablet RxNorm: 058088 (MAX APAP:4GM/24HR) Take 1 Tablet(s) Oral TID as needed for pain 12/10/19 24 Inactive torsemide 20 mg tablet RxNorm: 242365 Take 1 Tablet(s) Oral QD 10/26/19 24 Inactive potassium chloride ER 20 mEq tablet,extended release RxNorm: 19800522 Take 2 Tablet(s) Oral BID 10/26/19 24 Inactive torsemide 20 mg tablet RxNorm: 914075 Take 1 Tablet(s) Oral QD 10/26/19 24 Inactive potassium chloride ER 20 mEq tablet,extended release RxNorm: 19800522 Take 2 Tablet(s) Oral BID 10/26/19 24 Inactive Artificial Tears (PF) 0.1 %-0.3 % drops in a dropperette RxNorm: 522048 Apply 1-2 Drop(s) Both eyes BID as needed 09/28/19 24 Inactive erythromycin 5 mg/gram (0.5 %) eye ointment RxNorm: 973279 Apply 1 Application Both eyes QHS every night at bedtime Instill ~1 cm ribbon into affected eye 09/28/19 24 Inactive Artificial Tears (PF) 0.1 %-0.3 % drops in a dropperette RxNorm: 347537 Apply 1-2 Drop(s) Both eyes BID as needed 09/28/19 24 Inactive erythromycin 5 mg/gram (0.5 %) eye ointment RxNorm: 497571 Apply 1 Application Both eyes QHS every night at bedtime Instill ~1 cm ribbon into affected eye 09/28/19 24 Inactive acetaminophen 500 mg tablet RxNorm: 978418 (MAX APAP:4GM/24HR) Take 1 Tablet(s) Oral TID as needed for pain 09/24/19 24 024 Inactive carvedilol 25 mg tablet RxNorm: 373855 Take 1 Tablet(s) Oral QD 09/08/19 24 No Stop Date Active pregabalin 100 mg capsule RxNorm: 731449 Take 1 Capsule(s) Oral QAM every morning 09/07/19 24 024 Inactive ezetimibe 10 mg tablet RxNorm: 216807 Take 1 Tablet(s) Oral QD 07/13/19 24 025 Inactive bisacodyl 10 mg rectal suppository RxNorm: 023017 Insert 1 Suppository Rectal QD as needed 07/13/19 24 No Stop Date Active polyethylene glycol 3350 17 gram/dose oral powder RxNorm: 946430 Take 17 Gram(s) Oral BID as needed mix in 4-8ox water 07/13/19 24 025 Inactive ketoconazole 2 % shampoo RxNorm: 366541 Apply 1 Application Topical UD as directed 07/13/19 No Stop Date Active Ozempic 1 mg/dose (4 mg/3 mL) subcutaneous pen injector RxNorm: 7841944 Inject 1 Milligram(s) Subcutaneous QW once a week 07/13/19 No Stop Date Active Guaifenesin AC 10 mg-100 mg/5 mL oral liquid RxNorm: 286758 Take 10 Milliliter(s) Oral Q4H every four hours as needed 07/13/19 24 No Stop Date Active ammonium lactate 12 % topical cream RxNorm: 996577 Apply 1 Application Topical BID 07/13/19 24 025 Inactive hydrocortisone 2.5 % topical cream RxNorm: 231425 Apply 1 Application Topical BID as needed 07/13/19 24 No Stop Date Active rosuvastatin 20 mg sprinkle capsule RxNorm: 3856237 Take 1 Capsule(s) Oral QD 07/13/19 24 025 Inactive Vascepa 1 gram capsule RxNorm: 3484683 Take 2 Capsule(s) Oral BID 07/13/19 24 024 Inactive rosuvastatin 40 mg tablet RxNorm: 457762 Take 1 Tablet(s) Oral QPM every evening 07/13/19 24 024 Inactive aripiprazole 15 mg tablet RxNorm: 439168 Take 1/2 Tablet(s) Oral QD 07/13/19 24 024 Inactive isosorbide mononitrate ER 60 mg tablet,extended release 24 hr RxNorm: 660692 Take 1 Tablet(s) Oral QD 07/13/19 24 024 Inactive venlafaxine ER 75 mg capsule,extended release 24 hr RxNorm: 337288 Take 3 Capsule(s) Oral QD 07/13/19 24 024 Inactive Basaglar KwikPen U-100 Insulin 100 unit/mL (3 mL) subcutaneous RxNorm: 2261930 Inject 30U SubQ twice daily 07/07/19 24 024 Inactive Please dispense one month supply. Basaglar KwikPen U-100 Insulin 100 unit/mL (3 mL) subcutaneous RxNorm: 2338880 Inject 30U SubQ twice daily 07/07/19 24 024 Inactive Please dispense one month supply. pregabalin 150 mg capsule RxNorm: 074924 Take 1 Capsule(s) Oral QHS every night at bedtime 07/05/19 24 024 Inactive pregabalin 150 mg capsule RxNorm: 262078 Take 1 Capsule(s) Oral QHS every night at bedtime 07/05/19 24 024 Inactive polyethylene glycol 3350 17 gram/dose oral powder RxNorm: 939987 Take 1 Packet Oral QD as needed (1 packet = 17g) mix with 4-8oz of liquid 06/15/19 24 024 Inactive bisacodyl 10 mg rectal suppository RxNorm: 075476 Insert one suppository per rectum once daily as needed for constipation 06/15/19 24 024 Inactive bisacodyl 10 mg rectal suppository RxNorm: 442817 Insert one suppository per rectum once daily as needed for constipation 06/15/19 24 024 Inactive pregabalin 100 mg capsule RxNorm: 203482 Take 1 Capsule(s) Oral QAM every morning 04/27/20 23 024 Inactive Levemir FlexPen 100 unit/mL (3 mL) solution subcutaneous insulin pen RxNorm: 512814 Inject 30 Unit(s) Subcutaneous BID 04/27/20 024 Inactive rosuvastatin 40 mg tablet RxNorm: 081747 Take 1 Tablet(s) Oral QPM every evening 04/16/20 024 Inactive D/C rosuvastatin 20mg venlafaxine ER 75 mg capsule,extended release 24 hr RxNorm: 934628 Take 3 Capsule(s) Oral QD 04/14/20 023 Inactive pregabalin 100 mg capsule RxNorm: 533241 Take 1 Capsule(s) Oral QAM every morning [...] strip clotrimazole 1 % topical cream RxNorm: 511662 Take apply topically to abdominal folds twice daily for 14 days 03/12/20 024 Inactive Ozempic 1 mg/dose (4 mg/3 mL) subcutaneous pen injector RxNorm: 6274765 Inject 1 Milligram(s) Subcutaneous QW once a week 03/11/20 023 Inactive rosuvastatin 20 mg tablet RxNorm: 330935 Take 1 Tablet(s) Oral QD 02/26/20 023 Inactive d/c pravastatin 80mg Ozempic 1 mg/dose (4 mg/3 mL) subcutaneous pen injector RxNorm: 4125925 Inject 1 Milligram(s) Subcutaneous QW once a week 02/20/20 023 Inactive pregabalin 150 mg capsule RxNorm: 316720 Take 1 Capsule(s) Oral HS at bed time 02/19/20 23 023 Inactive pregabalin 100 mg capsule RxNorm: 546890 Take 1 Capsule(s) Oral QAM every morning 02/18/20 23 023 Inactive venlafaxine ER 75 mg capsule,extended release 24 hr RxNorm: 620615 Take 3 Capsule(s) Oral QD 02/04/20 23 023 Inactive FreeStyle Chema 2 Sensor kit RxNorm: use as directed 02/04/20 23 023 Inactive FreeStyle Chema 2 Sensor kit RxNorm: use as directed 02/04/20 23 024 Inactive fluconazole 150 mg tablet RxNorm: 306984 Take 1 Tablet(s) Oral on day 3 and on day 6 02/03/20 024 Inactive chlorthalidone 25 mg tablet RxNorm: 626372 Take 1 Tablet(s) Oral QAM every morning 02/03/20 024 Inactive venlafaxine ER 150 mg capsule,extended release 24 hr RxNorm: 896402 Take 1 Capsule(s) Oral QD 02/03/20 23 023 Inactive acetaminophen 500 mg tablet RxNorm: 644608 1 TABLET ORALLY 3 TIMES DAILY (MAX APAP:4GM/24HR) 12/15/19 23 023 Inactive clotrimazole 1 % topical cream RxNorm: 221824 apply 1g topically to top of feet and in between toes BID 12/09/19 23 025 Inactive potassium chloride ER 20 mEq tablet,extended release RxNorm: 182999 Take 1 Tablet(s) Oral BID 12/09/19 23 024 Inactive d/c 20mEq once daily (sent from hospital) nystatin 100,000 unit/gram topical powder RxNorm: 385605 APPLY TO AFFECTED AREAS TOPICALLY 2 TIMES DAILY 11/21/19 23 023 Inactive Nystop 100,000 unit/gram topical powder RxNorm: 867359 Apply to abd folds, under breasts and L side of groin Topical BID x 14 days, then BID PRN 11/20/19 23 023 Inactive dx: yeast dermatitis [place] Ultra Strength 4 %-30 %-10 % topical cream RxNorm: 922629 Apply 1 Gram(s) Topical QID PRN to feet and legs for neuropathic pain 11/11/19 23 024 Inactive clotrimazole 1 % topical cream RxNorm: 398532 Apply 1/2 Gram(s) Topical BID Apply to affected areas of groin, periarea, and abdominal topically 2 times daily 11/10/19 023 Inactive hydrocortisone 2.5 % topical cream RxNorm: 681138 Apply 1/2 Gram(s) Topical BID as needed 11/10/19 024 Inactive Levemir FlexPen 100 unit/mL (3 mL) solution subcutaneous insulin pen RxNorm: 630402 Inject 30 Unit(s) Subcutaneous BID 10/07/19 023 Inactive Humulin R U-500 (Concentrated) Insulin 500 unit/mL subcutaneous soln RxNorm: 749912 Inject 100 Unit(s) Subcutaneous TID 10/07/19 024 Inactive Ozempic 0.25 mg or 0.5 mg (2 mg/3 mL) subcutaneous pen injector RxNorm: 7362080 Inject 1/2 Milligram(s) Subcutaneous QW once a week 10/07/19 024 Inactive aripiprazole 15 mg tablet RxNorm: 602983 1/2 TAB (7.5MG) ORALLY DAILY (DX:MAJOR DEPRESSIVE DISORDER) 09/23/19 023 Inactive Accu-Chek Guide test strips RxNorm: Use 1 Test Strip QID 09/15/19 23 023 Inactive ok to substitute with any covered alternative test strip Lancets,Thin 28 gauge RxNorm: Use 1 as directed QID 09/15/19 23 023 Inactive torsemide 20 mg tablet RxNorm: 485702 Take 1 Tablet(s) Oral BID 09/09/19 23 024 Inactive d/c once daily dosing carvedilol 25 mg tablet RxNorm: 479472 Take 1 Tablet(s) Oral QD 08/25/19 23 024 Inactive pregabalin 150 mg capsule RxNorm: 843597 1 Capsule(s) Oral HS at bed time 08/18/19 023 Inactive pregabalin 100 mg capsule RxNorm: 176425 1 Capsule(s) Oral QAM every morning 08/18/19 23 023 Inactive carvedilol 25 mg tablet RxNorm: 120359 1 Tablet(s) Oral QD 07/28/19 23 023 Inactive lisinopril 20 mg tablet RxNorm: 280802 Give 1 Tablet(s) Oral QD 07/28/19 23 023 Inactive Lyrica 150 mg capsule RxNorm: 582262 Take 1 Capsule(s) Oral QHS every night at bedtime 07/19/19 23 023 Inactive d/c 100mg dose Diflucan 150 mg tablet RxNorm: 785213 Take 1 Tablet(s) Oral QD repeat on day 3 and 6 07/19/19 23 023 Inactive pregabalin 100 mg capsule RxNorm: 920368 Take 1 Capsule(s) Oral QAM every morning 07/19/19 023 Inactive gatifloxacin 0.5 % eye drops RxNorm: 864389 Instill 1 Drop(s) as directed TID Instill 1 drop in to affected eye(s) starting 1 day prior to surgery and continue until gone (do not exceed 4 weeks). 07/13/19 23 023 Inactive carvedilol 25 mg tablet RxNorm: 907624 2 Tablet(s) Oral BID 07/13/19 23 023 Inactive Humulin R Regular U-100 Insulin 100 unit/mL injection solution RxNorm: 315101 85 Unit(s) Injection TID 07/13/19 23 023 Inactive ketorolac 0.5 % eye drops RxNorm: 413424 Instill 1 Drop(s) as directed QID Instill 1 drop into affected eye(s) 4 times daily starting 1 day prior to surgery and continue until gone (do not exceed 4 weeks). 07/13/19 23 023 Inactive Diflucan 150 mg tablet RxNorm: 103697 Take 1 Tablet(s) Oral QD repeat on day 3 and 6 06/30/19 23 023 Inactive Accu-Chek Guide test strips RxNorm: Use 1 Test Strip QID Use 1 test strip to monitor blood glucose 4 times daily and as needed. Dx:E11.42. 06/23/19 23 023 Inactive ok to substitute with any covered alternative test strip dextromethorphan-gu aifenesin 10 mg-100 mg/5 mL oral liquid RxNorm: 137066 Take 10 Milliliter(s) Oral every 4 hours as needed for cough 06/19/19 23 023 Inactive dextromethorphan-gu aifenesin 10 mg-100 mg/5 mL oral liquid RxNorm: 441587 Take 10 Milliliter(s) Oral every 4 hours as needed for cough 06/19/19 23 023 Inactive Lyrica 150 mg capsule RxNorm: 042395 Take 1 Capsule(s) Oral QHS every night at bedtime 06/18/19 023 Inactive d/c 100mg dose aripiprazole 15 mg tablet RxNorm: 634549 /2 TAB (7.5MG) ORALLY DAILY (DX:MAJOR DEPRESSIVE DISORDER) 06/05/19 23 023 Inactive pregabalin 100 mg capsule RxNorm: 765806 1 Capsule(s) Oral QAM every morning 06/02/19 23 023 Inactive Banophen 50 mg capsule RxNorm: 4177257 Take 1 Capsule(s) Oral Q6H every 6 hours as needed 05/19/19 23 No Stop Date Active Novolog Flexpen U-100 Insulin aspart 100 unit/mL (3 mL) subcutaneous RxNorm: 7816693 Inject 10 Unit(s) Subcutaneous QHS every night at bedtime with nighttime snack 04/08/20 022 Inactive Novolog Flexpen U-100 Insulin aspart 100 unit/mL (3 mL) subcutaneous RxNorm: 3768318 Inject 42 Unit(s) Subcutaneous TID in addition to sliding scale 04/08/20 022 Inactive d/c 36u albuterol sulfate HFA 90 mcg/actuation aerosol inhaler RxNorm: 7019315 Take 2 Puff(s) Inhalation Q4H every four hours as needed as needed for SOB, cough, or wheezing 04/07/20 22 030 Active Banophen 50 mg capsule RxNorm: 6970616 Take 1 Capsule(s) Oral Q6H every 6 hours as needed 04/06/20 22 023 Inactive diphenhydramine 50 mg tablet RxNorm: 0522743 Take 1 Tablet(s) Oral Q6H every 6 hours as needed 04/06/20 22 022 Inactive diphenhydramine 50 mg tablet RxNorm: 6332450 1 Tablet(s) Oral Q6H every 6 hours as needed 04/06/20 22 022 Inactive Abilify 15 mg tablet RxNorm: 774989 1/2 Tablet(s) Oral QD 03/10/20 22 023 Inactive Shingrix (PF) 50 mcg/0.5 mL intramuscular suspension, kit RxNorm: 7556614 Administer 1/2 Milliliter(s) Intramuscular QD one time shingrix step 2 ( step 1 given 11/04/21) WITH needle - Nursing please administer upon arrival and once administered post a bridge message with date of administration, agency sales management assistant, expiration date, and lot# so we can update [facility] 02/18/20 22 022 Inactive dispense with needle Shingrix (PF) 50 mcg/0.5 mL intramuscular suspension, kit RxNorm: 5236901 Administer 1/2 Milliliter(s) Intramuscular QD one time shingrix step 2 ( step 1 given 11/04/21) WITH needle - Nursing please administer upon arrival and once administered post a bridge message with date of administration, agency sales management assistant, expiration date, and lot# so we can update [facility] 02/18/20 22 022 Inactive dispense with needle polyethylene glycol 3350 17 gram/dose oral powder RxNorm: 250052 Take 17=1 capful Gram(s) Oral QD mix with 4-8oz of liquid 01/08/20 22 025 Inactive take this in addition to BID prn order Lyrica 100 mg capsule RxNorm: 907360 Take 1 Capsule(s) Oral QAM every morning 01/08/20 22 022 Inactive d/c 50mg dose acetaminophen 500 mg tablet RxNorm: 193771 Take 1 Tablet(s) Oral TID 01/08/20 22 022 Inactive d/c PRN order Lyrica 150 mg capsule RxNorm: 006326 Take 1 Capsule(s) Oral QHS every night at bedtime 01/08/20 22 023 Inactive d/c 100mg dose Abilify 5 mg tablet RxNorm: 574384 Take 1 Tablet(s) Oral QD take 1 tab po QD #30 refill 5 dx: MDD 12/12/19 22 022 Inactive Abilify 5 mg tablet RxNorm: 309024 Take 1 Tablet(s) Oral QD take 1 tab po QD #30 refill 5 dx: MDD 12/12/19 22 022 Inactive Novolog Flexpen U-100 Insulin aspart 100 unit/mL (3 mL) subcutaneous RxNorm: 0229604 Inject 42 Unit(s) Subcutaneous TID in addition to sliding scale 12/10/19 22 022 Inactive d/c 36u chlorthalidone 25 mg tablet RxNorm: 566697 Take 1 Tablet(s) Oral QAM every morning 12/10/19 22 023 Inactive pregabalin 50 mg capsule RxNorm: 629831 Take 1 Capsule(s) Oral QAM every morning 11/12/19 22 022 Inactive tetanus-diphtheria toxoids-Td 2 Lf unit-2 Lf unit/0.5 mL IM suspension RxNorm: 139 Take 0.5 Miscellaneous Intramuscular 11/12/19 22 022 Inactive need tdap - nursing to administer upon arrival pregabalin 50 mg capsule RxNorm: 813806 Take 1 Capsule(s) Oral QAM every morning 10/16/19 22 022 Inactive pregabalin 50 mg capsule RxNorm: 868625 Take 1 Capsule(s) Oral QAM every morning 10/16/19 22 022 Inactive pregabalin 50 mg capsule RxNorm: 917137 1 Capsule(s) Oral QAM every morning 10/15/19 22 022 Inactive Shingrix (PF) 50 mcg/0.5 mL intramuscular suspension, kit RxNorm: 4797064 Administer 1/2 Milliliter(s) Intramuscular one time Nursing please administer upon arrival and once administered post a bridge message with date of administration, agency sales management assistant, expiration date, and lot# so we can update [facility]. 10/09/19 22 022 Inactive shingrix step 1 Shingrix (PF) 50 mcg/0.5 mL intramuscular suspension, kit RxNorm: 0445123 Administer 1/2 Milliliter(s) Intramuscular one time Nursing please administer upon arrival and once administered post a bridge message with date of administration, agency sales management assistant, expiration date, and lot# so we [...] aspart 100 unit/mL (3 mL) subcutaneous RxNorm: 5151678 Inject 10 Unit(s) Subcutaneous QHS every night at bedtime with nighttime snack 10/08/19 22 022 Inactive Shingrix (PF) 50 mcg/0.5 mL intramuscular suspension, kit RxNorm: 0298042 ADMINISTER 2-DOSE SERIES PER CDC GUIDELINES 10/08/19 22 Active Shingrix (PF) 50 mcg/0.5 mL intramuscular suspension, kit RxNorm: 4794140 ADMINISTER 2-DOSE SERIES PER CDC GUIDELINES 10/08/19 22 022 Inactive Novolog Flexpen U-100 Insulin aspart 100 unit/mL (3 mL) subcutaneous RxNorm: 8686763 Inject 36 Unit(s) Subcutaneous TID in addition to sliding scale 10/08/19 22 022 Inactive cholecalciferol (vitamin D3) 1,250 mcg (50,000 unit) capsule RxNorm: 055820 Take 1 Capsule(s) Oral QW once a week 10/08/19 22 Inactive Novofine Autocover 30 gauge x 1/3 needle RxNorm: Use 1 Miscellaneous UD as directed Use 1 needle as directed to administer insulin 5 times a day Dx:E11.42. 10/03/19 22 022 Inactive ok to substitute with any covered alternative pen needle benzoyl peroxide 10 % topical cleanser RxNorm: 399819 Apply 1 Application Topical QD apply to face, wash rinse and dry once daily (may change to QOD if drying) 08/19/19 22 022 Inactive (%covered by insurance) #60ml refill 11 dx: acne benzoyl peroxide 10 % topical cleanser RxNorm: 099124 Apply 1 Application Topical QD apply to face, wash rinse and dry once daily (may change to QOD if drying) 08/19/19 22 022 Inactive (%covered by insurance) #60ml refill 11 dx: acne benzoyl peroxide 10 % topical cleanser RxNorm: 768855 Apply 1 Application Topical QD apply to face, wash rinse and dry once daily (may change to QOD if drying) 08/19/19 022 Inactive (%covered by insurance) #60ml refill 11 dx: acne Lyrica 50 mg capsule RxNorm: 440715 Take 1 Capsule(s) Oral QAM every morning Take 1 capsule by mouth once daily 08/19/19 Inactive benzoyl peroxide 10 % topical cleanser RxNorm: 844355 Apply 1 Application Topical QD apply to face, wash rinse and dry once daily (may change to QOD if drying) 08/19/19 022 Inactive (%covered by insurance) #60ml refill 11 dx: acne Lyrica 100 mg capsule RxNorm: 666381 Take 1 Capsule(s) Oral QHS every night at bedtime Take 1 capsule by mouth once daily at bedtime 08/19/19 22 022 Inactive Lyrica 100 mg capsule RxNorm: 381719 Take 1 Capsule(s) Oral QHS every night at bedtime Take 1 capsule by mouth once daily at bedtime 08/16/19 Inactive Lyrica 50 mg capsule RxNorm: 741811 Take 1 Capsule(s) Oral QAM every morning Take 1 capsule by mouth once daily 08/16/19 22 Inactive Levemir FlexTouch U-100 Insulin 100 unit/mL (3 mL) subcutaneous pen RxNorm: 667586 Inject 86 Unit(s) Subcutaneous BID 08/05/19 22 022 Inactive d/c 83units BID Lyrica 100 mg capsule RxNorm: 584840 Take 1 Capsule(s) Oral QHS every night at bedtime Take 1 capsule by mouth once daily at bedtime 07/14/19 22 022 Inactive Lyrica 50 mg capsule RxNorm: 253950 Take 1 Capsule(s) Oral QAM every morning Take 1 capsule by mouth once daily 07/14/19 22 Inactive Levemir FlexTouch U-100 Insulin 100 unit/mL (3 mL) subcutaneous pen RxNorm: 859841 Inject 83 Unit(s) Subcutaneous BID 07/08/19 22 [...] test strip hydralazine 50 mg tablet RxNorm: 840209 Take 1 Tablet(s) Oral QID 05/05/20 21 022 Inactive venlafaxine ER 225 mg tablet,extended release 24 hr RxNorm: 771615 Take 1 Tablet(s) Oral QD 05/05/20 021 Inactive venlafaxine ER 225 mg tablet,extended release 24 hr RxNorm: 116700 Take 1 Tablet(s) Oral QD 05/05/20 022 Inactive isosorbide mononitrate ER 30 mg tablet,extended release 24 hr RxNorm: 308980 Take 1 Tablet(s) Oral QD 05/05/20 024 Inactive hydralazine 50 mg tablet RxNorm: 618821 Take 1 Tablet(s) Oral QID 05/05/20 Inactive aspirin 81 mg tablet,delayed release RxNorm: 667648 Take 1 Tablet(s) Oral QD 03/31/20 022 Inactive Vitamin D2 1,250 mcg (50,000 unit) capsule RxNorm: 3370754 Take 1 Capsule(s) Oral QW once a week x 12 weeks 03/31/20 022 Inactive Vitamin D2 1,250 mcg (50,000 unit) capsule RxNorm: 5284685 Take 1 Capsule(s) Oral QW once a week 03/31/20 021 Inactive Zetia 10 mg tablet RxNorm: 061988 Take 1 Tablet(s) Oral QD 03/31/20 024 Inactive Zetia 10 mg tablet RxNorm: 509422 Take 1 Tablet(s) Oral QD 03/31/20 021 Inactive hydralazine 25 mg tablet RxNorm: 774463 Take 1 Tablet(s) Oral QID 03/31/20 21 021 Inactive hydralazine 25 mg tablet RxNorm: 319718 Take 1 Tablet(s) Oral QID 03/31/20 021 Inactive hydralazine 10 mg tablet RxNorm: 914947 Take 1 Tablet(s) Oral QID 03/03/20 021 Inactive cephalexin 500 mg tablet RxNorm: 993021 Take 1 Tablet(s) Oral QID 02/27/20 021 Inactive cephalexin 500 mg tablet RxNorm: 208515 Take 1 Tablet(s) Oral QID 02/27/20 021 Inactive lisinopril 40 mg tablet RxNorm: 682957 Take 1 Tablet(s) Oral QD 02/11/20 023 Inactive Eliquis 5 mg tablet RxNorm: 0524387 Take 1 Tablet(s) Oral BID 01/05/20 21 025 Inactive Eliquis 5 mg tablet RxNorm: 1090275 Take 2 Tablet(s) Oral QD 01/01/20 21 021 Inactive Lyrica 50 mg capsule RxNorm: 739531 Take 1 Capsule(s) Oral QAM every morning 12/24/19 021 Inactive Lyrica 100 mg capsule RxNorm: 843956 Take 1 Capsule(s) Oral QHS every night at bedtime 12/24/19 021 Inactive clotrimazole 1 % topical cream RxNorm: 876105 Apply to right foot and toes Topical BID 12/04/19 21 023 Inactive metoprolol succinate ER 200 mg tablet,extended release 24 hr RxNorm: 401250 Take 1 Tablet(s) Oral QD 12/04/19 023 Inactive ciprofloxacin 500 mg tablet RxNorm: 150066 Take 1 Tablet(s) Oral QD 11/30/19 021 Inactive DX ofloxacin otic drops Accu-Chek Guide test strips RxNorm: USE 1 TO CHECK GLUCOSE 4 TIMES DAILY AND NEEDED 11/15/19 21 023 Inactive Blood Glucose Test strips RxNorm: Use 1 Test Strip QID at PRN 11/05/19 21 023 Inactive E11.42 lisinopril 30 mg tablet RxNorm: 555847 Take 1 Tablet(s) Oral QD 10/30/19 21 021 Inactive lisinopril 20 mg tablet RxNorm: 003859 Take 1 Tablet(s) Oral QD 10/23/19 21 021 Inactive lisinopril 20 mg tablet RxNorm: 206026 Take 1 Tablet(s) Oral QD 10/23/19 21 021 Inactive lisinopril 10 mg tablet RxNorm: 068406 Take 1 Tablet(s) Oral QD 10/02/19 21 021 Inactive icosapent ethyl 1 gram capsule RxNorm: 8161609 Take 2 Capsule(s) (2 gm) Oral BID with meals 09/12/19 21 024 Inactive Okay to dispense one 2gm tab if you have that available. icosapent ethyl 1 gram capsule RxNorm: 0370723 Take 2 Capsule(s) Oral BID 09/12/19 21 021 Inactive Okay to dispense one 2gm tab if you have that available. amlodipine 10 mg tablet RxNorm: 364269 Take 1 Tablet(s) Oral QD 09/04/19 21 021 Inactive aspirin 81 mg tablet,delayed release RxNorm: 579769 Take 1 Tablet(s) Oral QD 09/04/19 21 021 Inactive Levemir FlexTouch U-100 Insulin 100 unit/mL (3 mL) subcutaneous pen RxNorm: 447106 Inject 150 Unit(s) Subcutaneous BID 09/04/19 21 022 Inactive venlafaxine ER 150 mg tablet,extended release 24 hr RxNorm: 724364 Take 1 Tablet(s) Oral QD 09/04/19 21 021 Inactive clotrimazole-betame thasone 1 %-0.05 % topical cream RxNorm: 603822 Apply to rash on red area on left abdomen/chest Topical BID 08/10/19 21 021 Inactive amlodipine 5 mg tablet RxNorm: 191845 Take 1 Tablet(s) Oral QD 07/31/19 21 021 Inactive cephalexin 500 mg tablet RxNorm: 429297 Take 1 Tablet(s) Oral BID BID - Twice Daily 07/31/19 21 021 Inactive Start 08/01/20 pantoprazole 40 mg tablet,delayed release RxNorm: 769842 Take 1 Tablet(s) Oral QAM every morning 07/08/19 21 025 Inactive senna 8.6 mg tablet RxNorm: 064701 Take 1 Tablet(s) Oral QD 07/08/19 21 025 Inactive carbamazepine 200 mg tablet RxNorm: 790557 Take 1 Tablet(s) Oral BID 07/08/19 21 025 Inactive clopidogrel 75 mg tablet RxNorm: 722228 Take 1 Tablet(s) Oral QD 07/08/19 21 021 Inactive Blood Glucose Test strips RxNorm: Use 1 Test Strip QID at PRN 07/08/19 21 Inactive E11.42 Novolog Flexpen U-100 Insulin aspart 100 unit/mL (3 mL) subcutaneous RxNorm: 4369505 Administer per sliding scale Milliliter(s) Subcutaneous TID 151-200: 10 u; 201-250: 20 u; 251-300: 30 u; 301-350: 40 u; 351-400: 50 u. 07/08/19 21 022 Inactive lisinopril 5 mg tablet RxNorm: 636264 Take 1 Tablet(s) Oral QD 07/08/19 021 Inactive Novolog Flexpen U-100 Insulin aspart 100 unit/mL (3 mL) subcutaneous RxNorm: 0518822 Inject 85 Unit(s) Subcutaneous TID 07/08/19 21 022 Inactive pravastatin 80 mg tablet RxNorm: 138173 Take 1 Tablet(s) Oral QHS every night at bedtime 07/08/19 21 023 Inactive clotrimazole 1 % topical cream RxNorm: 557949 Apply to bilateral groin areas Topical BID 07/08/19 21 022 Inactive metoprolol succinate ER 200 mg tablet,extended release 24 hr RxNorm: 052313 Take 1 Tablet(s) Oral QD 07/08/19 21 021 Inactive Vitamin D3 25 mcg (1,000 unit) tablet RxNorm: 294901 Take 1 Tablet(s) Oral QD 07/08/19 21 021 Inactive isosorbide dinitrate 30 mg tablet RxNorm: 880371 Take 1 Tablet(s) Oral QD 07/08/19 21 021 Inactive Levemir FlexTouch U-100 Insulin 100 unit/mL (3 mL) subcutaneous pen RxNorm: 060509 Inject 140 Unit(s) Subcutaneous BID 07/08/19 21 021 Inactive torsemide 20 mg tablet RxNorm: 955195 Take 1 Tablet(s) Oral QD 07/08/19 21 023 Inactive venlafaxine 75 mg tablet RxNorm: 690520 Take 1 Tablet(s) Oral QD 07/08/19 021 Inactive acetaminophen 500 mg tablet RxNorm: 599151 Take 1 Tablet(s) Oral TID as needed for headache 06/18/19 Inactive acetaminophen 500 mg tablet RxNorm: 789885 Take 1 Tablet(s) Oral TID as needed for headache 06/18/19 021 Inactive Lyrica 100 mg capsule RxNorm: 191393 Take 1 Capsule(s) Oral QHS every night at bedtime 06/11/19 021 Inactive Lyrica 50 mg capsule RxNorm: 707761 Take 1 Capsule(s) Oral QAM every morning 06/10/19 21 021 Inactive hydrocortisone 2.5 % topical cream RxNorm: 347398 Apply to bilateral groin creases Topical BID 05/15/20 20 021 Inactive clotrimazole 1 % topical cream RxNorm: 663402 Apply to bilateral groin areas Topical BID 05/15/20 20 021 Inactive Lyrica 50 mg capsule RxNorm: 847245 Take 1 Capsule(s) Oral QAM every morning 05/14/20 20 020 Inactive Lyrica 100 mg capsule RxNorm: 371214 Take 1 Capsule(s) Oral QHS every night [...] Inactive Nystop 100,000 unit/gram topical powder RxNorm: 153968 Apply to abd folds, under breasts and L side of groin Topical BID x 14 days, then BID PRN 04/08/20 20 Inactive dx: yeast dermatitis Lyrica 100 mg capsule RxNorm: 267606 Take 1 Capsule(s) Oral QHS every night at bedtime 03/13/20 20 Inactive Lyrica 50 mg capsule RxNorm: 068416 Take 1 Capsule(s) Oral QAM every morning 03/13/20 20 Inactive ketoconazole 2 % shampoo RxNorm: 674851 Apply Topical two times a week with showers 03/11/20 20 024 Inactive cholecalciferol (vitamin D3) 50 mcg (2,000 unit) tablet RxNorm: 646945 Take 1 Tablet(s) Oral QD 03/11/20 20 021 Inactive Zetia 10 mg tablet RxNorm: 667234 Take 1 Tablet(s) Oral QD 03/07/20 20 021 Inactive Zetia 10 mg tablet RxNorm: 651245 Take 1 Tablet(s) Oral QD 03/07/20 20 Inactive Lyrica 50 mg capsule RxNorm: 041171 Take 1 Capsule(s) Oral QAM every morning 02/15/20 20 Inactive Lyrica 100 mg capsule RxNorm: 196735 Take 1 Capsule(s) Oral QHS every night at bedtime 02/15/20 20 Inactive Lyrica 100 mg capsule RxNorm: 967410 Take 1 Capsule(s) Oral QHS every night at bedtime 02/15/20 20 020 Inactive Lyrica 50 mg capsule RxNorm: 747268 Take 1 Capsule(s) Oral QAM every morning 02/15/20 20 020 Inactive metoprolol succinate ER 200 mg tablet,extended release 24 hr RxNorm: 697084 Take 1 Tablet(s) Oral QD 08/12/19 025 Inactive loperamide 2 mg capsule RxNorm: 296714 Take 1 Capsule(s) Oral QID as needed 09/06/19 025 Inactive hydralazine 50 mg tablet RxNorm: 406174 Take 1 Tablet(s) Oral QID 08/12/19 025 Inactive Soft Touch Lancets RxNorm: miscellaneous 03/04/20 025 Inactive venlafaxine ER 75 mg capsule,extended release 24 hr RxNorm: 712951 Take 3 Capsule(s) Oral QD 06/12/19 023 Inactive polyethylene glycol 3350 17 gram/dose oral powder RxNorm: 794801 Take 17=1 capful Gram(s) Oral BID as needed mix with 4-8oz of liquid 06/12/19 024 Inactive icosapent ethyl 1 gram capsule RxNorm: 8537702 Take 2 Capsule(s) (2 gm) Oral BID with meals 10/07/19 23 023 Inactive Okay to dispense one 2gm tab if you have that available. Levemir FlexTouch U-100 Insulin 100 unit/mL (3 mL) subcutaneous pen RxNorm: 795075 Inject 80 Unit(s) Subcutaneous BID 07/14/19 023 Inactive Novolog Flexpen U-100 Insulin aspart 100 unit/mL (3 mL) subcutaneous RxNorm: 0607722 Insert 30 Unit(s) Subcutaneous TID with meals [...] Planned Activity Notes Codes Status Date Referral: [facility] [address] [id number] [place] Referral Appointment Scheduled 10/20/2024 Referral: [facility]/Endocrinology W[place]: [address] [id number] [place] Referral No Records Received 07/10/2024 Referral: [facility] WPtel: [address], [address] [id number] [place] Referral Records Received 09/21/2022 Referral: [facility] [facility] WPtel: [address] [facility] [address] [id number] [place] Referral Completed 05/28/2021 Referral: General Cardiology [...] Sister Jyotsna involved in his care cell# [phone] Guardian: Giulia (tapan met in person 09/01/21), [...] appointment 05.26.2024 with Jessa Webster MD at [facility]. Start Pioglitazone 15 mg QD. Stop Basaglar insulin. Increase Ozempic 2 mg once wkly. Continue Humalin R U-500 100 units with meals TID. FOLLOW UP 2 MONTHS. If BG >400 add 50 units to next scheduled dose of Humalin R U 500 insulin 06/12/2024
--- OUTSIDE RECORDS SUMMARY | 2024-10-19 19:42 | XMS_ITS | CCD ---
Author Organization Unknown Care Team [facility]iders [facility] Representative Name Role Phone Harrison Durham Primary Care Provider Leona vailable Unavailable Chronic Care Management Unavaila ble Summary Purpose DataExchange Insurance Providers Payer name Policy type / Coverage type Covered constitution party ID Effective Begin Date Effective End Date [place] Part B [id number] Unknown Unknown [place] B [id number] Unknown Unknown Family history Sister Brittany Suggs [...] on file 07/11/[address]: 285090006 Never smoker 01/16 Sexually Active? Unknown No [...] Unknown Alf 09/03/[address]: 617975837 No Alcohol Consum ption 09/02/2020 Allergies, Adverse Reactions, Alerts Substance Reaction Codes Entered Date Inactivated Date Status * NO KNOWN FOOD ALLERGIES Unknown 07/13/2023 No Inactive Date Active LISINOPRIL RxNorm: 97258 02/12/2020 No Inactive Da te Active Metformin HCl Unknown 02/12/2020 No Inactive Cristiano e Active * NO KNOWN ENVIRONMENTAL ALLERGIES Unknown 07/13/2023 No Inactive Date Active Problems Condition Codes Effective Dates Condition St atus Body mass index [BMI] 60.0-69.9, adult SNOMED CT: 044565567 ICD-10: Z68.44 ICD-9: V85.44 08/08/2024 Active 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 ICD-10: K59.01 ICD-9: 564.01 08/08/2024 Active Mixed incontinence SNOMED CT: 03189474 ICD-10: N39.46 ICD-9: 788.33 08/08/2024 Active Type [...] 701.9 09/07/2023 Resolved Coronary artery disease involving [place] coronary artery [...] detention (current) use of insulin ICD-10: Z79.4 02/10/2022 [...] Fill Instructions senna 8.6 mg tablet RxNorm: 870466 Take 1 Tablet(s) Oral QD as needed for constipation on day 2 of no bowel movement 08/09/19 025 Inactive Miralax 17 gram/dose oral powder RxNorm: 819275 Administer 17 Gram(s) Oral QD as needed for constipation on day 3 of no bowel movement 08/09/19 025 Inactive senna 8.6 mg tablet RxNorm: 586892 Take 1 Tablet(s) Oral QD as needed for constipation on day 2 of no bowel movement 08/09/19 25 025 Inactive Miralax 17 gram/dose oral powder RxNorm: 965029 Administer 17 Gram(s) Oral QD as needed for constipation on day 3 of no bowel movement 08/09/19 25 025 Inactive pregabalin 100 mg capsule RxNorm: 432811 Take 1 Capsule(s) Oral QAM every morning [...] (Concentrated) Insulin 500 unit/mL subcutaneous soln RxNorm: 215936 Inject 100 Unit(s) Subcutaneous AC before meals Three times daily before meals. 07/24/19 25 025 Inactive ammonium lactate 12 % topical cream RxNorm: 158757 Apply 1 Application Topical BID 07/20/19 25 No Stop Date Active ezetimibe 10 mg tablet RxNorm: 736646 Take 1 Tablet(s) Oral QD 07/18/19 25 No Stop Date Active senna 8.6 mg tablet RxNorm: 689749 Take 1 Tablet(s) Oral QD 07/18/19 25 025 Inactive metoprolol succinate ER 200 mg tablet,extended release 24 hr RxNorm: 618585 Take 1 Tablet(s) Oral QD 06/19/19 25 No Stop Date Active pantoprazole 40 mg tablet,delayed release RxNorm: 408597 Take 1 Tablet(s) Oral QAM every morning 06/19/19 25 No Stop Date Active hydralazine 50 mg tablet RxNorm: 286125 Take 1 Tablet(s) Oral QID 06/19/19 25 No Stop Date Active carbamazepine 200 mg tablet RxNorm: 406109 Take 1 Tablet(s) Oral BID 06/19/19 25 No Stop Date Active amlodipine 10 mg tablet RxNorm: 646474 Take 1 Tablet(s) Oral QD 06/19/19 25 No Stop Date Active Eliquis 5 mg tablet RxNorm: 0294389 Take 1 Tablet(s) Oral BID 06/19/19 25 No Stop Date Active pen needle, diabetic 30 gauge x 3/16 RxNorm: Use 1 6 times per day w/insulin 06/14/19 25 026 Active pen needle, diabetic 30 gauge x 3/16 RxNorm: Use 1 needle 6 times per day w/insulin 06/14/19 25 025 Inactive nystatin 100,000 unit/gram topical powder RxNorm: 990695 Apply 1 Application Topical BID as needed abdominal/breast /groin folds 05/24/19 25 026 Active pregabalin 100 mg capsule RxNorm: 542289 Take 1 Capsule(s) Oral QAM every morning 05/22/19 25 025 Inactive nystatin 100,000 unit/gram topical powder RxNorm: 986810 Apply 1 Application Topical BID as needed abdominal/breast /groin folds 04/11/20 024 Inactive chlorthalidone 25 mg tablet RxNorm: 098316 Take 1 Tablet(s) Oral QAM every morning 04/06/20 No Stop Date Active pregabalin 150 mg capsule RxNorm: 399278 Take 1 Capsule(s) Oral QHS every night at bedtime 03/31/20 24 024 Inactive Vascepa 1 gram capsule RxNorm: 3578130 Take 2 Capsule(s) Oral BID 03/30/20 24 025 Active rosuvastatin 40 mg tablet RxNorm: 493100 1 TAB ORALLY EVERY EVENING (DX:CORONARY ARTERY DISEASE) 03/28/20 No Stop Date Active venlafaxine ER 75 mg capsule,extended release 24 hr RxNorm: 457559 3 CAPS (225MG) ORALLY DAILY (DX: MOOD DISORDER) 03/28/20 No Stop Date Active pregabalin 100 mg capsule RxNorm: 782543 Take 1 Capsule(s) Oral QAM every morning 03/20/20 24 024 Inactive cholecalciferol (vitamin D3) 1,250 mcg (50,000 unit) capsule RxNorm: 230816 Take 1 Capsule(s) Oral QW once a [...] Insulin 100 unit/mL (3 mL) subcutaneous RxNorm: 7215654 Inject 40 Unit(s) Subcutaneous BID 03/07/20 025 Inactive Please dispense one month supply. Humulin R U-500 (Concentrated) Insulin 500 unit/mL subcutaneous soln RxNorm: 528891 Inject 100 Unit(s) Subcutaneous AC before meals [...] PRN) to be use with new Accu [place] meter 03/04/20 Inactive ok to substitute with any covered alternative test strip FreeStyle Chema 2 Sensor kit RxNorm: Use UD as directed 03/02/20 Inactive Pen Needle 30 gauge x 516 RxNorm: Pen(s) Use 1 needle as directed TID 03/02/20 024 Inactive nystatin 100,000 unit/gram topical powder RxNorm: 910495 Apply 1 Application Topical BID as needed [...] (Concentrated) Insulin 500 unit/mL subcutaneous soln RxNorm: 661192 Inject 100 Unit(s) Subcutaneous TID 02/17/20 24 024 Inactive Humulin R U-500 (Concentrated) Insulin 500 unit/mL subcutaneous soln RxNorm: 273137 Inject 100 Unit(s) Subcutaneous TID 02/10/20 24 024 Inactive Basaglar KwikPen U-100 Insulin 100 unit/mL (3 mL) subcutaneous RxNorm: 3015781 Inject 30 Unit(s) Subcutaneous BID 02/10/20 24 024 Inactive Please dispense one month supply. pregabalin 100 mg capsule RxNorm: 183722 Take 1 Capsule(s) Oral QAM every morning 02/07/20 24 024 Inactive isosorbide mononitrate ER 60 mg tablet,extended release 24 hr RxNorm: 440922 Take 1 Tablet(s) Oral QD 02/01/20 24 025 Active aripiprazole 15 mg tablet RxNorm: 282310 Take 1/2 Tablet(s) Oral QD 02/01/20 24 025 Active torsemide 20 mg tablet RxNorm: 681028 1 TAB ORALLY DAILY (DX: EDEMA) 01/27/20 24 No Stop Date Active potassium chloride ER 20 mEq tablet,extended release(part/cryst) RxNorm: 3158872 2 TABS (40MEQ) ORALLY TWICE DAILY (DX: HYPOKALEMIA) 09/12/20 24 04/29/2 025 Inactive cephalexin 500 mg capsule RxNorm: 261771 Take 1 Capsule(s) Oral QID 12/17/19 24 Inactive cephalexin 500 mg capsule RxNorm: 109230 Take 1 Capsule(s) Oral QID 12/17/19 24 Inactive acetaminophen 500 mg tablet RxNorm: 693911 (MAX APAP:4GM/24HR) Take 1 Tablet(s) Oral TID as needed for pain 12/10/19 24 Inactive torsemide 20 mg tablet RxNorm: 925377 Take 1 Tablet(s) Oral QD 10/26/19 24 Inactive potassium chloride ER 20 mEq tablet,extended release RxNorm: 19800522 Take 2 Tablet(s) Oral BID 10/26/19 24 Inactive torsemide 20 mg tablet RxNorm: 390902 Take 1 Tablet(s) Oral QD 10/26/19 24 Inactive potassium chloride ER 20 mEq tablet,extended release RxNorm: 19800522 Take 2 Tablet(s) Oral BID 10/26/19 24 025 Inactive Artificial Tears (PF) 0.1 %-0.3 % drops in a dropperette RxNorm: 724241 Apply 1-2 Drop(s) Both eyes BID as needed 09/28/19 24 Inactive erythromycin 5 mg/gram (0.5 %) eye ointment RxNorm: 519821 Apply 1 Application Both eyes QHS every night at bedtime Instill ~1 cm ribbon into affected eye 09/28/19 24 Inactive Artificial Tears (PF) 0.1 %-0.3 % drops in a dropperette RxNorm: 488573 Apply 1-2 Drop(s) Both eyes BID as needed 09/28/19 24 024 Inactive erythromycin 5 mg/gram (0.5 %) eye ointment RxNorm: 035859 Apply 1 Application Both eyes QHS every night at bedtime Instill ~1 cm ribbon into affected eye 09/28/19 24 Inactive acetaminophen 500 mg tablet RxNorm: 289378 (MAX APAP:4GM/24HR) Take 1 Tablet(s) Oral TID as needed for pain 09/24/19 24 024 Inactive carvedilol 25 mg tablet RxNorm: 699639 Take 1 Tablet(s) Oral QD 09/08/19 24 No Stop Date Active pregabalin 100 mg capsule RxNorm: 263576 Take 1 Capsule(s) Oral QAM every morning 09/07/19 24 024 Inactive bisacodyl 10 mg rectal suppository RxNorm: 947101 Insert 1 Suppository Rectal QD as needed 07/13/19 24 No Stop Date Active ketoconazole 2 % shampoo RxNorm: 506217 Apply 1 Application Topical UD as directed 07/13/19 24 No Stop Date Active Ozempic 1 mg/dose (4 mg/3 mL) subcutaneous pen injector RxNorm: 4091072 Inject 1 Milligram(s) Subcutaneous QW once a week 07/13/19 24 No Stop Date Active Guaifenesin AC 10 mg-100 mg/5 mL oral liquid RxNorm: 312723 Take 10 Milliliter(s) Oral Q4H every four hours as needed 07/13/19 24 No Stop Date Active hydrocortisone 2.5 % topical cream RxNorm: 962327 Apply 1 Application Topical BID as needed 07/13/19 24 No Stop Date Active rosuvastatin 20 mg sprinkle capsule RxNorm: 2828406 Take 1 Capsule(s) Oral QD 07/13/19 24 025 Inactive rosuvastatin 40 mg tablet RxNorm: 859620 Take 1 Tablet(s) Oral QPM every evening 07/13/19 24 024 Inactive ezetimibe 10 mg tablet RxNorm: 507984 Take 1 Tablet(s) Oral QD 07/13/19 24 025 Inactive polyethylene glycol 3350 17 gram/dose oral powder RxNorm: 102947 Take 17 Gram(s) Oral BID as needed mix in 4-8ox water 07/13/19 24 025 Inactive aripiprazole 15 mg tablet RxNorm: 929150 Take 1/2 Tablet(s) Oral QD 07/13/19 24 024 Inactive isosorbide mononitrate ER 60 mg tablet,extended release 24 hr RxNorm: 640723 Take 1 Tablet(s) Oral QD 07/13/19 24 024 Inactive ammonium lactate 12 % topical cream RxNorm: 822064 Apply 1 Application Topical BID 07/13/19 24 025 Inactive Vascepa 1 gram capsule RxNorm: 4617970 Take 2 Capsule(s) Oral BID 07/13/19 24 024 Inactive venlafaxine ER 75 mg capsule,extended release 24 hr RxNorm: 265412 Take 3 Capsule(s) Oral QD 07/13/19 24 024 Inactive Basaglar KwikPen U-100 Insulin 100 unit/mL (3 mL) subcutaneous RxNorm: 0893585 Inject 30U SubQ twice daily 07/07/19 24 024 Inactive Please dispense one month supply. Basaglar KwikPen U-100 Insulin 100 unit/mL (3 mL) subcutaneous RxNorm: 4717690 Inject 30U SubQ twice daily 07/07/19 24 024 Inactive Please dispense one month supply. pregabalin 150 mg capsule RxNorm: 612390 Take 1 Capsule(s) Oral QHS every night at bedtime 07/05/19 24 024 Inactive pregabalin 150 mg capsule RxNorm: 515973 Take 1 Capsule(s) Oral QHS every night at bedtime 07/05/19 24 024 Inactive polyethylene glycol 3350 17 gram/dose oral powder RxNorm: 788590 Take 1 Packet Oral QD as needed (1 packet = 17g) mix with 4-8oz of liquid 06/15/19 24 024 Inactive bisacodyl 10 mg rectal suppository RxNorm: 189934 Insert one suppository per rectum once daily as needed for constipation 06/15/19 24 024 Inactive bisacodyl 10 mg rectal suppository RxNorm: 457001 Insert one suppository per rectum once daily as needed for constipation 06/15/19 24 024 Inactive pregabalin 100 mg capsule RxNorm: 992250 Take 1 Capsule(s) Oral QAM every morning 04/27/20 23 024 Inactive Levemir FlexPen 100 unit/mL (3 mL) solution subcutaneous insulin pen RxNorm: 154590 Inject 30 Unit(s) Subcutaneous BID 04/27/20 024 Inactive rosuvastatin 40 mg tablet RxNorm: 847195 Take 1 Tablet(s) Oral QPM every evening 04/16/20 024 Inactive D/C rosuvastatin 20mg venlafaxine ER 75 mg capsule,extended release 24 hr RxNorm: 578830 Take 3 Capsule(s) Oral QD 04/14/20 023 Inactive pregabalin 100 mg capsule RxNorm: 408485 Take 1 Capsule(s) Oral QAM every morning [...] strip clotrimazole 1 % topical cream RxNorm: 697605 Take apply topically to abdominal folds twice daily for 14 days 03/12/20 024 Inactive Ozempic 1 mg/dose (4 mg/3 mL) subcutaneous pen injector RxNorm: 4757317 Inject 1 Milligram(s) Subcutaneous QW once a week 03/11/20 023 Inactive rosuvastatin 20 mg tablet RxNorm: 053375 Take 1 Tablet(s) Oral QD 02/26/20 023 Inactive d/c pravastatin 80mg Ozempic 1 mg/dose (4 mg/3 mL) subcutaneous pen injector RxNorm: 2050008 Inject 1 Milligram(s) Subcutaneous QW once a week 02/20/20 023 Inactive pregabalin 150 mg capsule RxNorm: 235813 Take 1 Capsule(s) Oral HS at bed time 02/19/20 23 023 Inactive pregabalin 100 mg capsule RxNorm: 120430 Take 1 Capsule(s) Oral QAM every morning 02/18/20 23 023 Inactive venlafaxine ER 75 mg capsule,extended release 24 hr RxNorm: 601405 Take 3 Capsule(s) Oral QD 02/04/20 23 023 Inactive FreeStyle Chema 2 Sensor kit RxNorm: use as directed 02/04/20 23 023 Inactive FreeStyle Chema 2 Sensor kit RxNorm: use as directed 02/04/20 23 024 Inactive fluconazole 150 mg tablet RxNorm: 989365 Take 1 Tablet(s) Oral on day 3 and on day 6 02/03/20 024 Inactive venlafaxine ER 150 mg capsule,extended release 24 hr RxNorm: 940676 Take 1 Capsule(s) Oral QD 02/03/20 23 023 Inactive chlorthalidone 25 mg tablet RxNorm: 095049 Take 1 Tablet(s) Oral QAM every morning 02/03/20 23 024 Inactive acetaminophen 500 mg tablet RxNorm: 969298 1 TABLET ORALLY 3 TIMES DAILY (MAX APAP:4GM/24HR) 12/15/19 23 023 Inactive clotrimazole 1 % topical cream RxNorm: 383566 apply 1g topically to top of feet and in between toes BID 12/09/19 23 025 Inactive potassium chloride ER 20 mEq tablet,extended release RxNorm: 113119 Take 1 Tablet(s) Oral BID 12/09/19 23 024 Inactive d/c 20mEq once daily (sent from hospital) nystatin 100,000 unit/gram topical powder RxNorm: 500260 APPLY TO AFFECTED AREAS TOPICALLY 2 TIMES DAILY 11/21/19 23 023 Inactive Nystop 100,000 unit/gram topical powder RxNorm: 610612 Apply to abd folds, under breasts and L side of groin Topical BID x 14 days, then BID PRN 11/20/19 23 023 Inactive dx: yeast dermatitis Bengay Ultra Strength 4 %-30 %-10 % topical cream RxNorm: 215518 Apply 1 Gram(s) Topical QID PRN to feet and legs for neuropathic pain 11/11/19 23 024 Inactive clotrimazole 1 % topical cream RxNorm: 833279 Apply 1/2 Gram(s) Topical BID Apply to affected areas of groin, periarea, and abdominal topically 2 times daily 11/10/19 023 Inactive hydrocortisone 2.5 % topical cream RxNorm: 622064 Apply 1/2 Gram(s) Topical BID as needed 11/10/19 024 Inactive Levemir FlexPen 100 unit/mL (3 mL) solution subcutaneous insulin pen RxNorm: 073858 Inject 30 Unit(s) Subcutaneous BID 10/07/19 023 Inactive Humulin R U-500 (Concentrated) Insulin 500 unit/mL subcutaneous soln RxNorm: 268831 Inject 100 Unit(s) Subcutaneous TID 10/07/19 024 Inactive Ozempic 0.25 mg or 0.5 mg (2 mg/3 mL) subcutaneous pen injector RxNorm: 8861280 Inject 1/2 Milligram(s) Subcutaneous QW once a week 10/07/19 024 Inactive aripiprazole 15 mg tablet RxNorm: 379678 1/2 TAB (7.5MG) ORALLY DAILY (DX:MAJOR DEPRESSIVE DISORDER) 09/23/19 023 Inactive Accu-Chek Guide test strips RxNorm: Use 1 Test Strip QID 09/15/19 23 023 Inactive ok to substitute with any covered alternative test strip Lancets,Thin 28 gauge RxNorm: Use 1 as directed QID 09/15/19 23 023 Inactive torsemide 20 mg tablet RxNorm: 064037 Take 1 Tablet(s) Oral BID 09/09/19 23 024 Inactive d/c once daily dosing carvedilol 25 mg tablet RxNorm: 058198 Take 1 Tablet(s) Oral QD 08/25/19 23 024 Inactive pregabalin 150 mg capsule RxNorm: 803119 1 Capsule(s) Oral HS at bed time 08/18/19 023 Inactive pregabalin 100 mg capsule RxNorm: 891221 1 Capsule(s) Oral QAM every morning 08/18/19 23 023 Inactive carvedilol 25 mg tablet RxNorm: 323471 1 Tablet(s) Oral QD 07/28/19 23 023 Inactive lisinopril 20 mg tablet RxNorm: 676706 Give 1 Tablet(s) Oral QD 07/28/19 23 023 Inactive Lyrica 150 mg capsule RxNorm: 465622 Take 1 Capsule(s) Oral QHS every night at bedtime 07/19/19 23 023 Inactive d/c 100mg dose Diflucan 150 mg tablet RxNorm: 342078 Take 1 Tablet(s) Oral QD repeat on day 3 and 6 07/19/19 23 023 Inactive pregabalin 100 mg capsule RxNorm: 911212 Take 1 Capsule(s) Oral QAM every morning 07/19/19 023 Inactive gatifloxacin 0.5 % eye drops RxNorm: 905177 Instill 1 Drop(s) as directed TID Instill 1 drop in to affected eye(s) starting 1 day prior to surgery and continue until gone (do not exceed 4 weeks). 07/13/19 23 023 Inactive carvedilol 25 mg tablet RxNorm: 376299 2 Tablet(s) Oral BID 07/13/19 23 023 Inactive Humulin R Regular U-100 Insulin 100 unit/mL injection solution RxNorm: 725202 85 Unit(s) Injection TID 07/13/19 23 023 Inactive ketorolac 0.5 % eye drops RxNorm: 192640 Instill 1 Drop(s) as directed QID Instill 1 drop into affected eye(s) 4 times daily starting 1 day prior to surgery and continue until gone (do not exceed 4 weeks). 07/13/19 23 023 Inactive Diflucan 150 mg tablet RxNorm: 499660 Take 1 Tablet(s) Oral QD repeat on day 3 and 6 06/30/19 23 023 Inactive Accu-Chek Guide test strips RxNorm: Use 1 Test Strip QID Use 1 test strip to monitor blood glucose 4 times daily and as needed. Dx:E11.42. 06/23/19 23 023 Inactive ok to substitute with any covered alternative test strip dextromethorphan-gu aifenesin 10 mg-100 mg/5 mL oral liquid RxNorm: 422586 Take 10 Milliliter(s) Oral every 4 hours as needed for cough 06/19/19 23 023 Inactive dextromethorphan-gu aifenesin 10 mg-100 mg/5 mL oral liquid RxNorm: 744656 Take 10 Milliliter(s) Oral every 4 hours as needed for cough 06/19/19 23 023 Inactive Lyrica 150 mg capsule RxNorm: 390246 Take 1 Capsule(s) Oral QHS every night at bedtime 06/18/19 023 Inactive d/c 100mg dose aripiprazole 15 mg tablet RxNorm: 269324 /2 TAB (7.5MG) ORALLY DAILY (DX:MAJOR DEPRESSIVE DISORDER) 06/05/19 23 023 Inactive pregabalin 100 mg capsule RxNorm: 209348 1 Capsule(s) Oral QAM every morning 06/02/19 23 023 Inactive Banophen 50 mg capsule RxNorm: 7331864 Take 1 Capsule(s) Oral Q6H every 6 hours as needed 05/19/19 23 No Stop Date Active Novolog Flexpen U-100 Insulin aspart 100 unit/mL (3 mL) subcutaneous RxNorm: 3616040 Inject 10 Unit(s) Subcutaneous QHS every night at bedtime with nighttime snack 04/08/20 022 Inactive Novolog Flexpen U-100 Insulin aspart 100 unit/mL (3 mL) subcutaneous RxNorm: 7680770 Inject 42 Unit(s) Subcutaneous TID in addition to sliding scale 04/08/20 022 Inactive d/c 36u albuterol sulfate HFA 90 mcg/actuation aerosol inhaler RxNorm: 5633251 Take 2 Puff(s) Inhalation Q4H every four hours as needed as needed for SOB, cough, or wheezing 04/07/20 22 030 Active Banophen 50 mg capsule RxNorm: 7107382 Take 1 Capsule(s) Oral Q6H every 6 hours as needed 04/06/20 22 023 Inactive diphenhydramine 50 mg tablet RxNorm: 3711545 Take 1 Tablet(s) Oral Q6H every 6 hours as needed 04/06/20 22 022 Inactive diphenhydramine 50 mg tablet RxNorm: 5728072 1 Tablet(s) Oral Q6H every 6 hours as needed 04/06/20 22 022 Inactive Abilify 15 mg tablet RxNorm: 341403 1/2 Tablet(s) Oral QD 03/10/20 22 023 Inactive Shingrix (PF) 50 mcg/0.5 mL intramuscular suspension, kit RxNorm: 5755312 Administer 1/2 Milliliter(s) Intramuscular QD one time shingrix step 2 ( step 1 given 11/04/21) WITH needle - Nursing please administer upon arrival and once administered post a bridge message with date of administration, global sales manager, expiration date, and lot# so we can update [facility] 02/18/20 22 022 Inactive dispense with needle Shingrix (PF) 50 mcg/0.5 mL intramuscular suspension, kit RxNorm: 2835756 Administer 1/2 Milliliter(s) Intramuscular QD one time shingrix step 2 ( step 1 given 11/04/21) WITH needle - Nursing please administer upon arrival and once administered post a bridge message with date of administration, global sales manager, expiration date, and lot# so we can update [facility] 02/18/20 22 022 Inactive dispense with needle Lyrica 100 mg capsule RxNorm: 828587 Take 1 Capsule(s) Oral QAM every morning 01/08/20 22 022 Inactive d/c 50mg dose acetaminophen 500 mg tablet RxNorm: 430076 Take 1 Tablet(s) Oral TID 01/08/20 22 022 Inactive d/c PRN order Lyrica 150 mg capsule RxNorm: 767444 Take 1 Capsule(s) Oral QHS every night at bedtime 01/08/20 22 023 Inactive d/c 100mg dose polyethylene glycol 3350 17 gram/dose oral powder RxNorm: 641944 Take 17=1 capful Gram(s) Oral QD mix with 4-8oz of liquid 01/08/20 22 025 Inactive take this in addition to BID prn order Abilify 5 mg tablet RxNorm: 181847 Take 1 Tablet(s) Oral QD take 1 tab po QD #30 refill 5 dx: MDD 12/12/19 22 022 Inactive Abilify 5 mg tablet RxNorm: 845377 Take 1 Tablet(s) Oral QD take 1 tab po QD #30 refill 5 dx: MDD 12/12/19 22 022 Inactive Novolog Flexpen U-100 Insulin aspart 100 unit/mL (3 mL) subcutaneous RxNorm: 9694844 Inject 42 Unit(s) Subcutaneous TID in addition to sliding scale 12/10/19 22 022 Inactive d/c 36u chlorthalidone 25 mg tablet RxNorm: 361143 Take 1 Tablet(s) Oral QAM every morning 12/10/19 22 023 Inactive pregabalin 50 mg capsule RxNorm: 391432 Take 1 Capsule(s) Oral QAM every morning 11/12/19 22 022 Inactive tetanus-diphtheria toxoids-Td 2 Lf unit-2 Lf unit/0.5 mL IM suspension RxNorm: 139 Take 0.5 Miscellaneous Intramuscular 11/12/19 22 022 Inactive need tdap - nursing to administer upon arrival pregabalin 50 mg capsule RxNorm: 493131 Take 1 Capsule(s) Oral QAM every morning 10/16/19 22 022 Inactive pregabalin 50 mg capsule RxNorm: 904272 Take 1 Capsule(s) Oral QAM every morning 10/16/19 22 022 Inactive pregabalin 50 mg capsule RxNorm: 211873 1 Capsule(s) Oral QAM every morning 10/15/19 22 022 Inactive Shingrix (PF) 50 mcg/0.5 mL intramuscular suspension, kit RxNorm: 4181687 Administer 1/2 Milliliter(s) Intramuscular one time Nursing please administer upon arrival and once administered post a bridge message with date of administration, global sales manager, expiration date, and lot# so we can update [facility]. 10/09/19 22 022 Inactive shingrix step 1 Shingrix (PF) 50 mcg/0.5 mL intramuscular suspension, kit RxNorm: 4736626 Administer 1/2 Milliliter(s) Intramuscular one time Nursing please administer upon arrival and once administered post a bridge message with date of administration, global sales manager, expiration date, and lot# so we [...] aspart 100 unit/mL (3 mL) subcutaneous RxNorm: 5193127 Inject 10 Unit(s) Subcutaneous QHS every night at bedtime with nighttime snack 10/08/19 22 022 Inactive Shingrix (PF) 50 mcg/0.5 mL intramuscular suspension, kit RxNorm: 2939472 ADMINISTER 2-DOSE SERIES PER CDC GUIDELINES 10/08/19 22 Active Shingrix (PF) 50 mcg/0.5 mL intramuscular suspension, kit RxNorm: 7883226 ADMINISTER 2-DOSE SERIES PER CDC GUIDELINES 10/08/19 22 022 Inactive Novolog Flexpen U-100 Insulin aspart 100 unit/mL (3 mL) subcutaneous RxNorm: 2853522 Inject 36 Unit(s) Subcutaneous TID in addition to sliding scale 10/08/19 22 022 Inactive cholecalciferol (vitamin D3) 1,250 mcg (50,000 unit) capsule RxNorm: 149904 Take 1 Capsule(s) Oral QW once a week 10/08/19 22 Inactive Novofine Autocover 30 gauge x 1/3 needle RxNorm: Use 1 Miscellaneous UD as directed Use 1 needle as directed to administer insulin 5 times a day Dx:E11.42. 10/03/19 22 022 Inactive ok to substitute with any covered alternative pen needle benzoyl peroxide 10 % topical cleanser RxNorm: 912663 Apply 1 Application Topical QD apply to face, wash rinse and dry once daily (may change to QOD if drying) 08/19/19 22 022 Inactive (%covered by insurance) #60ml refill 11 dx: acne benzoyl peroxide 10 % topical cleanser RxNorm: 821704 Apply 1 Application Topical QD apply to face, wash rinse and dry once daily (may change to QOD if drying) 08/19/19 22 022 Inactive (%covered by insurance) #60ml refill 11 dx: acne benzoyl peroxide 10 % topical cleanser RxNorm: 887583 Apply 1 Application Topical QD apply to face, wash rinse and dry once daily (may change to QOD if drying) 08/19/19 022 Inactive (%covered by insurance) #60ml refill 11 dx: acne Lyrica 50 mg capsule RxNorm: 111703 Take 1 Capsule(s) Oral QAM every morning Take 1 capsule by mouth once daily 08/19/19 Inactive benzoyl peroxide 10 % topical cleanser RxNorm: 734063 Apply 1 Application Topical QD apply to face, wash rinse and dry once daily (may change to QOD if drying) 08/19/19 022 Inactive (%covered by insurance) #60ml refill 11 dx: acne Lyrica 100 mg capsule RxNorm: 032885 Take 1 Capsule(s) Oral QHS every night at bedtime Take 1 capsule by mouth once daily at bedtime 08/19/19 22 022 Inactive Lyrica 100 mg capsule RxNorm: 851575 Take 1 Capsule(s) Oral QHS every night at bedtime Take 1 capsule by mouth once daily at bedtime 08/16/19 Inactive Lyrica 50 mg capsule RxNorm: 099900 Take 1 Capsule(s) Oral QAM every morning Take 1 capsule by mouth once daily 08/16/19 22 Inactive Levemir FlexTouch U-100 Insulin 100 unit/mL (3 mL) subcutaneous pen RxNorm: 495343 Inject 86 Unit(s) Subcutaneous BID 08/05/19 22 022 Inactive d/c 83units BID Lyrica 100 mg capsule RxNorm: 161681 Take 1 Capsule(s) Oral QHS every night at bedtime Take 1 capsule by mouth once daily at bedtime 07/14/19 22 022 Inactive Lyrica 50 mg capsule RxNorm: 033292 Take 1 Capsule(s) Oral QAM every morning Take 1 capsule by mouth once daily 07/14/19 22 Inactive Levemir FlexTouch U-100 Insulin 100 unit/mL (3 mL) subcutaneous pen RxNorm: 153962 Inject 83 Unit(s) Subcutaneous BID 07/08/19 22 [...] test strip hydralazine 50 mg tablet RxNorm: 059987 Take 1 Tablet(s) Oral QID 05/05/20 21 022 Inactive venlafaxine ER 225 mg tablet,extended release 24 hr RxNorm: 669231 Take 1 Tablet(s) Oral QD 05/05/20 021 Inactive venlafaxine ER 225 mg tablet,extended release 24 hr RxNorm: 736178 Take 1 Tablet(s) Oral QD 05/05/20 022 Inactive isosorbide mononitrate ER 30 mg tablet,extended release 24 hr RxNorm: 297939 Take 1 Tablet(s) Oral QD 05/05/20 024 Inactive hydralazine 50 mg tablet RxNorm: 633436 Take 1 Tablet(s) Oral QID 05/05/20 Inactive aspirin 81 mg tablet,delayed release RxNorm: 701335 Take 1 Tablet(s) Oral QD 03/31/20 022 Inactive Vitamin D2 1,250 mcg (50,000 unit) capsule RxNorm: 2724968 Take 1 Capsule(s) Oral QW once a week x 12 weeks 03/31/20 022 Inactive Vitamin D2 1,250 mcg (50,000 unit) capsule RxNorm: 7850760 Take 1 Capsule(s) Oral QW once a week 03/31/20 021 Inactive Zetia 10 mg tablet RxNorm: 950258 Take 1 Tablet(s) Oral QD 03/31/20 024 Inactive Zetia 10 mg tablet RxNorm: 498463 Take 1 Tablet(s) Oral QD 03/31/20 021 Inactive hydralazine 25 mg tablet RxNorm: 458768 Take 1 Tablet(s) Oral QID 03/31/20 21 021 Inactive hydralazine 25 mg tablet RxNorm: 891865 Take 1 Tablet(s) Oral QID 03/31/20 021 Inactive hydralazine 10 mg tablet RxNorm: 725362 Take 1 Tablet(s) Oral QID 03/03/20 021 Inactive cephalexin 500 mg tablet RxNorm: 502396 Take 1 Tablet(s) Oral QID 02/27/20 021 Inactive cephalexin 500 mg tablet RxNorm: 880781 Take 1 Tablet(s) Oral QID 02/27/20 021 Inactive lisinopril 40 mg tablet RxNorm: 069603 Take 1 Tablet(s) Oral QD 02/11/20 023 Inactive Eliquis 5 mg tablet RxNorm: 8670161 Take 1 Tablet(s) Oral BID 01/05/20 21 025 Inactive Eliquis 5 mg tablet RxNorm: 2856382 Take 2 Tablet(s) Oral QD 01/01/20 21 021 Inactive Lyrica 50 mg capsule RxNorm: 827926 Take 1 Capsule(s) Oral QAM every morning 12/24/19 021 Inactive Lyrica 100 mg capsule RxNorm: 282664 Take 1 Capsule(s) Oral QHS every night at bedtime 12/24/19 021 Inactive clotrimazole 1 % topical cream RxNorm: 734254 Apply to right foot and toes Topical BID 12/04/19 21 023 Inactive metoprolol succinate ER 200 mg tablet,extended release 24 hr RxNorm: 082024 Take 1 Tablet(s) Oral QD 12/04/19 023 Inactive ciprofloxacin 500 mg tablet RxNorm: 165993 Take 1 Tablet(s) Oral QD 11/30/19 021 Inactive DX ofloxacin otic drops Accu-Chek Guide test strips RxNorm: USE 1 TO CHECK GLUCOSE 4 TIMES DAILY AND NEEDED 11/15/19 21 023 Inactive Blood Glucose Test strips RxNorm: Use 1 Test Strip QID at PRN 11/05/19 21 023 Inactive E11.42 lisinopril 30 mg tablet RxNorm: 043401 Take 1 Tablet(s) Oral QD 10/30/19 21 021 Inactive lisinopril 20 mg tablet RxNorm: 976639 Take 1 Tablet(s) Oral QD 10/23/19 21 021 Inactive lisinopril 20 mg tablet RxNorm: 585311 Take 1 Tablet(s) Oral QD 10/23/19 21 021 Inactive lisinopril 10 mg tablet RxNorm: 081144 Take 1 Tablet(s) Oral QD 10/02/19 21 021 Inactive icosapent ethyl 1 gram capsule RxNorm: 0817555 Take 2 Capsule(s) (2 gm) Oral BID with meals 09/12/19 21 024 Inactive Okay to dispense one 2gm tab if you have that available. icosapent ethyl 1 gram capsule RxNorm: 7160124 Take 2 Capsule(s) Oral BID 09/12/19 21 021 Inactive Okay to dispense one 2gm tab if you have that available. amlodipine 10 mg tablet RxNorm: 631430 Take 1 Tablet(s) Oral QD 09/04/19 21 021 Inactive aspirin 81 mg tablet,delayed release RxNorm: 208040 Take 1 Tablet(s) Oral QD 09/04/19 21 021 Inactive Levemir FlexTouch U-100 Insulin 100 unit/mL (3 mL) subcutaneous pen RxNorm: 095395 Inject 150 Unit(s) Subcutaneous BID 09/04/19 21 022 Inactive venlafaxine ER 150 mg tablet,extended release 24 hr RxNorm: 896495 Take 1 Tablet(s) Oral QD 09/04/19 21 021 Inactive clotrimazole-betame thasone 1 %-0.05 % topical cream RxNorm: 009081 Apply to rash on red area on left abdomen/chest Topical BID 08/10/19 21 021 Inactive amlodipine 5 mg tablet RxNorm: 766394 Take 1 Tablet(s) Oral QD 07/31/19 21 021 Inactive cephalexin 500 mg tablet RxNorm: 921537 Take 1 Tablet(s) Oral BID BID - Twice Daily 07/31/19 21 021 Inactive Start 08/01/20 pantoprazole 40 mg tablet,delayed release RxNorm: 862345 Take 1 Tablet(s) Oral QAM every morning 07/08/19 21 025 Inactive clopidogrel 75 mg tablet RxNorm: 219320 Take 1 Tablet(s) Oral QD 07/08/19 021 Inactive Blood Glucose Test strips RxNorm: Use 1 Test Strip QID at PRN 07/08/19 21 Inactive E11.42 senna 8.6 mg tablet RxNorm: 547833 Take 1 Tablet(s) Oral QD 07/08/19 21 025 Inactive Novolog Flexpen U-100 Insulin aspart 100 unit/mL (3 mL) subcutaneous RxNorm: 1738332 Administer per sliding scale Milliliter(s) Subcutaneous TID 151-200: 10 u; 201-250: 20 u; 251-300: 30 u; 301-350: 40 u; 351-400: 50 u. 07/08/19 022 Inactive lisinopril 5 mg tablet RxNorm: 464819 Take 1 Tablet(s) Oral QD 07/08/19 021 Inactive Novolog Flexpen U-100 Insulin aspart 100 unit/mL (3 mL) subcutaneous RxNorm: 1397564 Inject 85 Unit(s) Subcutaneous TID 07/08/19 022 Inactive pravastatin 80 mg tablet RxNorm: 411573 Take 1 Tablet(s) Oral QHS every night at bedtime 07/08/19 023 Inactive clotrimazole 1 % topical cream RxNorm: 869865 Apply to bilateral groin areas Topical BID 07/08/19 21 022 Inactive metoprolol succinate ER 200 mg tablet,extended release 24 hr RxNorm: 664421 Take 1 Tablet(s) Oral QD 07/08/19 021 Inactive Vitamin D3 25 mcg (1,000 unit) tablet RxNorm: 752367 Take 1 Tablet(s) Oral QD 07/08/19 21 021 Inactive isosorbide dinitrate 30 mg tablet RxNorm: 330305 Take 1 Tablet(s) Oral QD 07/08/19 21 021 Inactive carbamazepine 200 mg tablet RxNorm: 231157 Take 1 Tablet(s) Oral BID 07/08/19 21 025 Inactive Levemir FlexTouch U-100 Insulin 100 unit/mL (3 mL) subcutaneous pen RxNorm: 007111 Inject 140 Unit(s) Subcutaneous BID 07/08/19 21 021 Inactive torsemide 20 mg tablet RxNorm: 636105 Take 1 Tablet(s) Oral QD 07/08/19 21 023 Inactive venlafaxine 75 mg tablet RxNorm: 462191 Take 1 Tablet(s) Oral QD 07/08/19 21 021 Inactive acetaminophen 500 mg tablet RxNorm: 208280 Take 1 Tablet(s) Oral TID as needed for headache 06/18/19 21 021 Inactive acetaminophen 500 mg tablet RxNorm: 388736 Take 1 Tablet(s) Oral TID as needed for headache 06/18/19 021 Inactive Lyrica 100 mg capsule RxNorm: 621904 Take 1 Capsule(s) Oral QHS every night at bedtime 06/11/19 21 021 Inactive Lyrica 50 mg capsule RxNorm: 665428 Take 1 Capsule(s) Oral QAM every morning 06/10/19 21 021 Inactive hydrocortisone 2.5 % topical cream RxNorm: 971614 Apply to bilateral groin creases Topical BID 05/15/20 20 021 Inactive clotrimazole 1 % topical cream RxNorm: 746628 Apply to bilateral groin areas Topical BID 05/15/20 20 021 Inactive Lyrica 50 mg capsule RxNorm: 900052 Take 1 Capsule(s) Oral QAM every morning 05/14/20 20 020 Inactive Lyrica 100 mg capsule RxNorm: 949725 Take 1 Capsule(s) Oral QHS every night [...] Inactive Nystop 100,000 unit/gram topical powder RxNorm: 043547 Apply to abd folds, under breasts and L side of groin Topical BID x 14 days, then BID PRN 04/08/20 20 Inactive dx: yeast dermatitis Lyrica 100 mg capsule RxNorm: 325008 Take 1 Capsule(s) Oral QHS every night at bedtime 03/13/20 20 Inactive Lyrica 50 mg capsule RxNorm: 541459 Take 1 Capsule(s) Oral QAM every morning 03/13/20 20 Inactive ketoconazole 2 % shampoo RxNorm: 668296 Apply Topical two times a week with showers 03/11/20 20 024 Inactive cholecalciferol (vitamin D3) 50 mcg (2,000 unit) tablet RxNorm: 472930 Take 1 Tablet(s) Oral QD 03/11/20 20 021 Inactive Zetia 10 mg tablet RxNorm: 377110 Take 1 Tablet(s) Oral QD 03/07/20 20 021 Inactive Zetia 10 mg tablet RxNorm: 812826 Take 1 Tablet(s) Oral QD 03/07/20 20 Inactive Lyrica 50 mg capsule RxNorm: 069325 Take 1 Capsule(s) Oral QAM every morning 02/15/20 20 Inactive Lyrica 100 mg capsule RxNorm: 174131 Take 1 Capsule(s) Oral QHS every night at bedtime 02/15/20 20 Inactive Lyrica 100 mg capsule RxNorm: 101841 Take 1 Capsule(s) Oral QHS every night at bedtime 02/15/20 020 Inactive Lyrica 50 mg capsule RxNorm: 851114 Take 1 Capsule(s) Oral QAM every morning 02/15/20 20 020 Inactive loperamide 2 mg capsule RxNorm: 031028 Take 1 Capsule(s) Oral QID as needed 09/06/19 025 Inactive venlafaxine ER 75 mg capsule,extended release 24 hr RxNorm: 726953 Take 3 Capsule(s) Oral QD 06/12/19 023 Inactive polyethylene glycol 3350 17 gram/dose oral powder RxNorm: 020447 Take 17=1 capful Gram(s) Oral BID as needed mix with 4-8oz of liquid 06/12/19 024 Inactive icosapent ethyl 1 gram capsule RxNorm: 5620838 Take 2 Capsule(s) (2 gm) Oral BID with meals 10/07/19 023 Inactive Okay to dispense one 2gm tab if you have that available. Levemir FlexTouch U-100 Insulin 100 unit/mL (3 mL) subcutaneous pen RxNorm: 650022 Inject 80 Unit(s) Subcutaneous BID 07/14/19 23 023 Inactive metoprolol succinate ER 200 mg tablet,extended release 24 hr RxNorm: 978396 Take 1 Tablet(s) Oral QD 08/12/19 025 Inactive hydralazine 50 mg tablet RxNorm: 567081 Take 1 Tablet(s) Oral QID 08/12/19 025 Inactive Soft Touch Lancets RxNorm: miscellaneous 03/04/20 24 025 Inactive Novolog Flexpen U-100 Insulin aspart 100 unit/mL (3 mL) subcutaneous RxNorm: 4813917 Insert 30 Unit(s) Subcutaneous TID with meals [...] Planned Activity Notes Codes Status Date Referral: [facility] [address] [id number] [place] Referral Appointment Scheduled 10/20/2024 Referral: [facility]/Endocrinology WPtel: [address] [id number] [place] Referral No Records Received 07/10/2024 Referral: [facility] WPtel: [phone], [address] [id number] [place] Referral Records Received 09/21/2022 Referral: [facility] [place] [facility] WPtel: [address] [facility] [address] [id number] [place] Referral Completed 05/28/2021 Referral: General Cardiology [...] Sister Jyotsna involved in his care cell# [phone] Guardian: Giulia (tapan met in person 09/01/21), [...] appointment 05.26.2024 with Jessa Webster MD at [facility]. Start Pioglitazone 15 mg QD. Stop Basaglar insulin. Increase Ozempic 2 mg once wkly. Continue Humalin R U-500 100 units with meals TID. FOLLOW UP 2 MONTHS. If BG >400 add 50 units to next scheduled dose of Humalin R U 500 insulin 06/12/2024
--- OUTSIDE RECORDS SUMMARY | 2024-10-19 19:44 | XMS_ITS | CCD ---
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 07/24/19 25 025 Inactive ammonium lactate 12 % topical cream RxNorm: 959849 Apply 1 Application Topical BID 07/20/19 25 No Stop Date Active senna 8.6 mg tablet RxNorm: 461683 Take 1 Tablet(s) Oral QD 07/18/19 25 025 Inactive ezetimibe 10 mg tablet RxNorm: 734074 Take 1 Tablet(s) Oral QD 07/18/19 25 No Stop Date Active metoprolol succinate ER 200 mg tablet,extended release 24 hr RxNorm: 026420 Take 1 Tablet(s) Oral QD 06/19/19 25 No Stop Date Active pantoprazole 40 mg tablet,delayed release RxNorm: 052440 Take 1 Tablet(s) Oral QAM every morning 06/19/19 25 No Stop Date Active hydralazine 50 mg tablet RxNorm: 414500 Take 1 Tablet(s) Oral QID 06/19/19 25 No Stop Date Active carbamazepine 200 mg tablet RxNorm: 430007 Take 1 Tablet(s) Oral BID 06/19/19 25 No Stop Date Active amlodipine 10 mg tablet RxNorm: 180616 Take 1 Tablet(s) Oral QD 06/19/19 25 No Stop Date Active Eliquis 5 mg tablet RxNorm: 3086901 Take 1 Tablet(s) Oral BID 06/19/19 25 No Stop Date Active pen needle, diabetic 30 gauge x 3/16 RxNorm: Use 1 6 times per day w/insulin 06/14/19 25 026 Active pen needle, diabetic 30 gauge x 3/16 RxNorm: Use 1 needle 6 times per day w/insulin 06/14/19 25 025 Inactive nystatin 100,000 unit/gram topical powder RxNorm: 929903 Apply 1 Application Topical BID as needed abdominal/breast /groin folds 05/24/19 25 026 Active pregabalin 100 mg capsule RxNorm: 956350 Take 1 Capsule(s) Oral QAM every morning 05/22/19 25 025 Inactive nystatin 100,000 unit/gram topical powder RxNorm: 236250 Apply 1 Application Topical BID as needed abdominal/breast /groin folds 04/11/20 24 024 Inactive chlorthalidone 25 mg tablet RxNorm: 519355 Take 1 Tablet(s) Oral QAM every morning 04/06/20 24 No Stop Date Active pregabalin 150 mg capsule RxNorm: 831712 Take 1 Capsule(s) Oral QHS every night at bedtime 03/31/20 Inactive Vascepa 1 gram capsule RxNorm: 3310651 Take 2 Capsule(s) Oral BID 03/30/20 Active rosuvastatin 40 mg tablet RxNorm: 743667 1 TAB ORALLY EVERY EVENING (DX:CORONARY ARTERY DISEASE) 03/28/20 No Stop Date Active venlafaxine ER 75 mg capsule,extended release 24 hr RxNorm: 935727 3 CAPS (225MG) ORALLY DAILY (DX: MOOD DISORDER) 03/28/20 No Stop Date Active pregabalin 100 mg capsule RxNorm: 560987 Take 1 Capsule(s) Oral QAM every morning 03/20/20 Inactive cholecalciferol (vitamin D3) 1,250 mcg (50,000 unit) capsule RxNorm: 888399 Take 1 Capsule(s) Oral QW once a [...] Insulin 100 unit/mL (3 mL) subcutaneous RxNorm: 4600893 Inject 40 Unit(s) Subcutaneous BID 03/07/20 025 Inactive Please dispense one month supply. Humulin R U-500 (Concentrated) Insulin 500 unit/mL subcutaneous soln RxNorm: 666269 Inject 100 Unit(s) Subcutaneous AC before meals [...] PRN) to be use with new Accu [place] meter 03/04/20 Inactive ok to substitute with any covered alternative test strip FreeStyle Chema 2 Sensor kit RxNorm: Use UD as directed 03/02/20 Inactive Pen Needle 30 gauge x 516 RxNorm: Pen(s) Use 1 needle as directed TID 03/02/20 Inactive nystatin 100,000 unit/gram topical powder RxNorm: 116429 Apply 1 Application Topical BID as needed [...] (Concentrated) Insulin 500 unit/mL subcutaneous soln RxNorm: 512278 Inject 100 Unit(s) Subcutaneous TID 02/17/20 24 024 Inactive Humulin R U-500 (Concentrated) Insulin 500 unit/mL subcutaneous soln RxNorm: 950139 Inject 100 Unit(s) Subcutaneous TID 02/10/20 24 024 Inactive Radha Enrique U-100 Insulin 100 unit/mL (3 mL) subcutaneous RxNorm: 6927296 Inject 30 Unit(s) Subcutaneous BID 02/10/20 24 024 Inactive Please dispense one month supply. pregabalin 100 mg capsule RxNorm: 712119 Take 1 Capsule(s) Oral QAM every morning 02/07/20 24 024 Inactive isosorbide mononitrate ER 60 mg tablet,extended release 24 hr RxNorm: 924475 Take 1 Tablet(s) Oral QD 02/01/20 24 025 Active aripiprazole 15 mg tablet RxNorm: 460898 Take 1/2 Tablet(s) Oral QD 02/01/20 24 025 Active torsemide 20 mg tablet RxNorm: 966505 1 TAB ORALLY DAILY (DX: EDEMA) 01/27/20 No Stop Date Active potassium chloride ER 20 mEq tablet,extended release(part/cryst) RxNorm: 2698074 2 TABS (40MEQ) ORALLY TWICE DAILY (DX: HYPOKALEMIA) 01/27/20 24 025 Inactive cephalexin 500 mg capsule RxNorm: 339743 Take 1 Capsule(s) Oral QID 12/17/19 24 024 Inactive cephalexin 500 mg capsule RxNorm: 084544 Take 1 Capsule(s) Oral QID 12/17/19 24 024 Inactive acetaminophen 500 mg tablet RxNorm: 089798 (MAX APAP:4GM/24HR) Take 1 Tablet(s) Oral TID as needed for pain 12/10/19 24 024 Inactive torsemide 20 mg tablet RxNorm: 207242 Take 1 Tablet(s) Oral QD 10/26/19 24 024 Inactive potassium chloride ER 20 mEq tablet,extended release RxNorm: 972742 Take 2 Tablet(s) Oral BID 10/26/19 24 024 Inactive torsemide 20 mg tablet RxNorm: 225458 Take 1 Tablet(s) Oral QD 10/26/19 24 025 Inactive potassium chloride ER 20 mEq tablet,extended release RxNorm: 401842 Take 2 Tablet(s) Oral BID 10/26/19 24 025 Inactive Artificial Tears (PF) 0.1 %-0.3 % drops in a dropperette RxNorm: 009865 Apply 1-2 Drop(s) Both eyes BID as needed 09/28/19 24 025 Inactive erythromycin 5 mg/gram (0.5 %) eye ointment RxNorm: 100727 Apply 1 Application Both eyes QHS every night at bedtime Instill ~1 cm ribbon into affected eye 09/28/19 24 024 Inactive Artificial Tears (PF) 0.1 %-0.3 % drops in a dropperette RxNorm: 281087 Apply 1-2 Drop(s) Both eyes BID as needed 09/28/19 24 024 Inactive erythromycin 5 mg/gram (0.5 %) eye ointment RxNorm: 830491 Apply 1 Application Both eyes QHS every night at bedtime Instill ~1 cm ribbon into affected eye 09/28/19 24 024 Inactive acetaminophen 500 mg tablet RxNorm: 776435 (MAX APAP:4GM/24HR) Take 1 Tablet(s) Oral TID as needed for pain 09/24/19 Inactive carvedilol 25 mg tablet RxNorm: 961045 Take 1 Tablet(s) Oral QD 09/08/19 No Stop Date Active pregabalin 100 mg capsule RxNorm: 858338 Take 1 Capsule(s) Oral QAM every morning 09/07/19 24 024 Inactive bisacodyl 10 mg rectal suppository RxNorm: 970139 Insert 1 Suppository Rectal QD as needed 07/13/19 No Stop Date Active polyethylene glycol 3350 17 gram/dose oral powder RxNorm: 360505 Take 17 Gram(s) Oral BID as needed mix in 4-8ox water 07/13/19 24 025 Inactive ketoconazole 2 % shampoo RxNorm: 297005 Apply 1 Application Topical UD as directed 07/13/19 No Stop Date Active Ozempic 1 mg/dose (4 mg/3 mL) subcutaneous pen injector RxNorm: 1624329 Inject 1 Milligram(s) Subcutaneous QW once a week 07/13/19 No Stop Date Active Guaifenesin AC 10 mg-100 mg/5 mL oral liquid RxNorm: 719263 Take 10 Milliliter(s) Oral Q4H every four hours as needed 07/13/19 No Stop Date Active hydrocortisone 2.5 % topical cream RxNorm: 060529 Apply 1 Application Topical BID as needed 07/13/19 No Stop Date Active rosuvastatin 20 mg sprinkle capsule RxNorm: 3221627 Take 1 Capsule(s) Oral QD 07/13/19 24 025 Inactive rosuvastatin 40 mg tablet RxNorm: 680636 Take 1 Tablet(s) Oral QPM every evening 07/13/19 24 024 Inactive ezetimibe 10 mg tablet RxNorm: 172884 Take 1 Tablet(s) Oral QD 07/13/19 24 025 Inactive aripiprazole 15 mg tablet RxNorm: 845795 Take 1/2 Tablet(s) Oral QD 07/13/19 24 024 Inactive isosorbide mononitrate ER 60 mg tablet,extended release 24 hr RxNorm: 759255 Take 1 Tablet(s) Oral QD 07/13/19 24 024 Inactive ammonium lactate 12 % topical cream RxNorm: 164781 Apply 1 Application Topical BID 07/13/19 24 025 Inactive Vascepa 1 gram capsule RxNorm: 1576159 Take 2 Capsule(s) Oral BID 07/13/19 24 024 Inactive venlafaxine ER 75 mg capsule,extended release 24 hr RxNorm: 969280 Take 3 Capsule(s) Oral QD 07/13/19 24 024 Inactive Basaglar KwikPen U-100 Insulin 100 unit/mL (3 mL) subcutaneous RxNorm: 4694857 Inject 30U SubQ twice daily 07/07/19 24 024 Inactive Please dispense one month supply. Basaglar KwikPen U-100 Insulin 100 unit/mL (3 mL) subcutaneous RxNorm: 2470578 Inject 30U SubQ twice daily 07/07/19 24 024 Inactive Please dispense one month supply. pregabalin 150 mg capsule RxNorm: 453453 Take 1 Capsule(s) Oral QHS every night at bedtime 07/05/19 24 024 Inactive pregabalin 150 mg capsule RxNorm: 044746 Take 1 Capsule(s) Oral QHS every night at bedtime 07/05/19 24 024 Inactive polyethylene glycol 3350 17 gram/dose oral powder RxNorm: 057663 Take 1 Packet Oral QD as needed (1 packet = 17g) mix with 4-8oz of liquid 06/15/19 24 024 Inactive bisacodyl 10 mg rectal suppository RxNorm: 064086 Insert one suppository per rectum once daily as needed for constipation 06/15/19 024 Inactive bisacodyl 10 mg rectal suppository RxNorm: 528696 Insert one suppository per rectum once daily as needed for constipation 06/15/19 024 Inactive pregabalin 100 mg capsule RxNorm: 755388 Take 1 Capsule(s) Oral QAM every morning 04/27/20 23 024 Inactive Levemir FlexPen 100 unit/mL (3 mL) solution subcutaneous insulin pen RxNorm: 462518 Inject 30 Unit(s) Subcutaneous BID 04/27/20 024 Inactive rosuvastatin 40 mg tablet RxNorm: 183042 Take 1 Tablet(s) Oral QPM every evening 04/16/20 23 024 Inactive D/C rosuvastatin 20mg venlafaxine ER 75 mg capsule,extended release 24 hr RxNorm: 186227 Take 3 Capsule(s) Oral QD 04/14/20 23 023 Inactive pregabalin 100 mg capsule RxNorm: 014828 Take 1 Capsule(s) Oral QAM every morning [...] strip clotrimazole 1 % topical cream RxNorm: 645163 Take apply topically to abdominal folds twice daily for 14 days 03/12/20 024 Inactive Ozempic 1 mg/dose (4 mg/3 mL) subcutaneous pen injector RxNorm: 2146638 Inject 1 Milligram(s) Subcutaneous QW once a week 03/11/20 023 Inactive rosuvastatin 20 mg tablet RxNorm: 799680 Take 1 Tablet(s) Oral QD 02/26/20 23 023 Inactive d/c pravastatin 80mg Ozempic 1 mg/dose (4 mg/3 mL) subcutaneous pen injector RxNorm: 7368339 Inject 1 Milligram(s) Subcutaneous QW once a week 02/20/20 023 Inactive pregabalin 150 mg capsule RxNorm: 556438 Take 1 Capsule(s) Oral HS at bed time 02/19/20 23 023 Inactive pregabalin 100 mg capsule RxNorm: 706412 Take 1 Capsule(s) Oral QAM every morning 02/18/20 023 Inactive venlafaxine ER 75 mg capsule,extended release 24 hr RxNorm: 666971 Take 3 Capsule(s) Oral QD 02/04/20 023 Inactive FreeStyle Chema 2 Sensor kit RxNorm: use as directed 02/04/20 23 023 Inactive FreeStyle Chema 2 Sensor kit RxNorm: use as directed 02/04/20 23 024 Inactive fluconazole 150 mg tablet RxNorm: 512589 Take 1 Tablet(s) Oral on day 3 and on day 6 02/03/20 23 024 Inactive venlafaxine ER 150 mg capsule,extended release 24 hr RxNorm: 041014 Take 1 Capsule(s) Oral QD 02/03/20 23 023 Inactive chlorthalidone 25 mg tablet RxNorm: 237675 Take 1 Tablet(s) Oral QAM every morning 02/03/20 23 024 Inactive acetaminophen 500 mg tablet RxNorm: 603086 1 TABLET ORALLY 3 TIMES DAILY (MAX APAP:4GM/24HR) 12/15/19 23 023 Inactive clotrimazole 1 % topical cream RxNorm: 252931 apply 1g topically to top of feet and in between toes BID 12/09/19 23 025 Inactive potassium chloride ER 20 mEq tablet,extended release RxNorm: 800776 Take 1 Tablet(s) Oral BID 12/09/19 024 Inactive d/c 20mEq once daily (sent from hospital) nystatin 100,000 unit/gram topical powder RxNorm: 854206 APPLY TO AFFECTED AREAS TOPICALLY 2 TIMES DAILY 11/21/19 23 023 Inactive Nystop 100,000 unit/gram topical powder RxNorm: 361898 Apply to abd folds, under breasts and L side of groin Topical BID x 14 days, then BID PRN 11/20/19 023 Inactive dx: yeast dermatitis [place] Ultra Strength 4 %-30 %-10 % topical cream RxNorm: 500651 Apply 1 Gram(s) Topical QID PRN to feet and legs for neuropathic pain 11/11/19 23 024 Inactive clotrimazole 1 % topical cream RxNorm: 686707 Apply 1/2 Gram(s) Topical BID Apply to affected areas of groin, periarea, and abdominal topically 2 times daily 11/10/19 23 023 Inactive hydrocortisone 2.5 % topical cream RxNorm: 501998 Apply 1/2 Gram(s) Topical BID as needed 11/10/19 024 Inactive Levemir FlexPen 100 unit/mL (3 mL) solution subcutaneous insulin pen RxNorm: 468773 Inject 30 Unit(s) Subcutaneous BID 10/07/19 23 023 Inactive Humulin R U-500 (Concentrated) Insulin 500 unit/mL subcutaneous soln RxNorm: 311359 Inject 100 Unit(s) Subcutaneous TID 10/07/19 23 024 Inactive Ozempic 0.25 mg or 0.5 mg (2 mg/3 mL) subcutaneous pen injector RxNorm: 7544173 Inject 1/2 Milligram(s) Subcutaneous QW once a week 05/23/20 23 024 Inactive aripiprazole 15 mg tablet RxNorm: 075556 05/18 TAB (7.5MG) ORALLY DAILY (DX:MAJOR DEPRESSIVE DISORDER) 09/23/19 23 023 Inactive Accu-Chek Guide test strips RxNorm: Use 1 Test Strip QID 09/15/19 23 023 Inactive ok to substitute with any covered alternative test strip Lancets,Thin 28 gauge RxNorm: Use 1 as directed QID 09/15/19 23 023 Inactive torsemide 20 mg tablet RxNorm: 908084 Take 1 Tablet(s) Oral BID 09/09/19 23 024 Inactive d/c once daily dosing carvedilol 25 mg tablet RxNorm: 431301 Take 1 Tablet(s) Oral QD 08/25/19 23 024 Inactive pregabalin 150 mg capsule RxNorm: 529573 1 Capsule(s) Oral HS at bed time 08/18/19 23 023 Inactive pregabalin 100 mg capsule RxNorm: 790926 1 Capsule(s) Oral QAM every morning 08/18/19 23 023 Inactive carvedilol 25 mg tablet RxNorm: 329216 1 Tablet(s) Oral QD 07/28/19 23 023 Inactive lisinopril 20 mg tablet RxNorm: 151193 Give 1 Tablet(s) Oral QD 07/28/19 23 023 Inactive Lyrica 150 mg capsule RxNorm: 479578 Take 1 Capsule(s) Oral QHS every night at bedtime 07/19/19 23 023 Inactive d/c 100mg dose Diflucan 150 mg tablet RxNorm: 441967 Take 1 Tablet(s) Oral QD repeat on day 3 and 6 07/19/19 23 023 Inactive pregabalin 100 mg capsule RxNorm: 174351 Take 1 Capsule(s) Oral QAM every morning 07/19/19 23 023 Inactive gatifloxacin 0.5 % eye drops RxNorm: 692535 Instill 1 Drop(s) as directed TID Instill 1 drop in to affected eye(s) starting 1 day prior to surgery and continue until gone (do not exceed 4 weeks). 07/13/19 23 023 Inactive carvedilol 25 mg tablet RxNorm: 142907 2 Tablet(s) Oral BID 07/13/19 023 Inactive Humulin R Regular U-100 Insulin 100 unit/mL injection solution RxNorm: 628141 85 Unit(s) Injection TID 07/13/19 23 023 Inactive ketorolac 0.5 % eye drops RxNorm: 183703 Instill 1 Drop(s) as directed QID Instill 1 drop into affected eye(s) 4 times daily starting 1 day prior to surgery and continue until gone (do not exceed 4 weeks). 07/13/19 023 Inactive Diflucan 150 mg tablet RxNorm: 423523 Take 1 Tablet(s) Oral QD repeat on day 3 and 6 06/30/19 023 Inactive Accu-Chek Guide test strips RxNorm: Use 1 Test Strip QID Use 1 test strip to monitor blood glucose 4 times daily and as needed. Dx:E11.42. 06/23/19 23 023 Inactive ok to substitute with any covered alternative test strip dextromethorphan-gu aifenesin 10 mg-100 mg/5 mL oral liquid RxNorm: 261083 Take 10 Milliliter(s) Oral every 4 hours as needed for cough 06/19/19 23 023 Inactive dextromethorphan-gu aifenesin 10 mg-100 mg/5 mL oral liquid RxNorm: 544655 Take 10 Milliliter(s) Oral every 4 hours as needed for cough 06/19/19 23 023 Inactive Lyrica 150 mg capsule RxNorm: 682460 Take 1 Capsule(s) Oral QHS every night at bedtime 06/18/19 23 023 Inactive d/c 100mg dose aripiprazole 15 mg tablet RxNorm: 289911 1/2 TAB (7.5MG) ORALLY DAILY (DX:MAJOR DEPRESSIVE DISORDER) 06/05/19 23 023 Inactive pregabalin 100 mg capsule RxNorm: 855627 1 Capsule(s) Oral QAM every morning 06/02/19 023 Inactive Banophen 50 mg capsule RxNorm: 0891780 Take 1 Capsule(s) Oral Q6H every 6 hours as needed 05/19/19 No Stop Date Active Novolog Flexpen U-100 Insulin aspart 100 unit/mL (3 mL) subcutaneous RxNorm: 7406462 Inject 10 Unit(s) Subcutaneous QHS every night at bedtime with nighttime snack 04/08/20 022 Inactive Novolog Flexpen U-100 Insulin aspart 100 unit/mL (3 mL) subcutaneous RxNorm: 3866486 Inject 42 Unit(s) Subcutaneous TID in addition to sliding scale 04/08/20 Inactive d/c 36u albuterol sulfate HFA 90 mcg/actuation aerosol inhaler RxNorm: 7892510 Take 2 Puff(s) Inhalation Q4H every four hours as needed as needed for SOB, cough, or wheezing 04/07/20 030 Active Banophen 50 mg capsule RxNorm: 7104520 Take 1 Capsule(s) Oral Q6H every 6 hours as needed 04/06/20 023 Inactive diphenhydramine 50 mg tablet RxNorm: 1585527 Take 1 Tablet(s) Oral Q6H every 6 hours as needed 04/06/20 022 Inactive diphenhydramine 50 mg tablet RxNorm: 8943252 1 Tablet(s) Oral Q6H every 6 hours as needed 04/06/20 022 Inactive Abilify 15 mg tablet RxNorm: 995772 1/2 Tablet(s) Oral QD 03/10/20 22 023 Inactive Shingrix (PF) 50 mcg/0.5 mL intramuscular suspension, kit RxNorm: 8610248 Administer 1/2 Milliliter(s) Intramuscular QD one time shingrix step 2 ( step 1 given 11/04/21) WITH needle - Nursing please administer upon arrival and once administered post a bridge message with date of administration, funeral greeter, expiration date, and lot# so we can update [facility] 02/18/20 22 022 Inactive dispense with needle Shingrix (PF) 50 mcg/0.5 mL intramuscular suspension, kit RxNorm: 4774096 Administer 1/2 Milliliter(s) Intramuscular QD one time shingrix step 2 ( step 1 given 11/04/21) WITH needle - Nursing please administer upon arrival and once administered post a bridge message with date of administration, funeral greeter, expiration date, and lot# so we can update [facility] 02/18/20 22 022 Inactive dispense with needle polyethylene glycol 3350 17 gram/dose oral powder RxNorm: 349410 Take 17=1 capful Gram(s) Oral QD mix with 4-8oz of liquid 01/08/20 22 025 Inactive take this in addition to BID prn order Lyrica 100 mg capsule RxNorm: 873424 Take 1 Capsule(s) Oral QAM every morning 01/08/20 22 022 Inactive d/c 50mg dose acetaminophen 500 mg tablet RxNorm: 315076 Take 1 Tablet(s) Oral TID 01/08/20 22 022 Inactive d/c PRN order Lyrica 150 mg capsule RxNorm: 826675 Take 1 Capsule(s) Oral QHS every night at bedtime 01/08/20 22 023 Inactive d/c 100mg dose Abilify 5 mg tablet RxNorm: 675124 Take 1 Tablet(s) Oral QD take 1 tab po QD #30 refill 5 dx: MDD 12/12/19 22 022 Inactive Abilify 5 mg tablet RxNorm: 497843 Take 1 Tablet(s) Oral QD take 1 tab po QD #30 refill 5 dx: MDD 12/12/19 22 022 Inactive Novolog Flexpen U-100 Insulin aspart 100 unit/mL (3 mL) subcutaneous RxNorm: 6802814 Inject 42 Unit(s) Subcutaneous TID in addition to sliding scale 12/10/19 22 022 Inactive d/c 36u chlorthalidone 25 mg tablet RxNorm: 599880 Take 1 Tablet(s) Oral QAM every morning 12/10/19 22 023 Inactive pregabalin 50 mg capsule RxNorm: 709282 Take 1 Capsule(s) Oral QAM every morning 11/12/19 22 022 Inactive tetanus-diphtheria toxoids-Td 2 Lf unit-2 Lf unit/0.5 mL IM suspension RxNorm: 139 Take 0.5 Miscellaneous Intramuscular 11/12/19 22 022 Inactive need tdap - nursing to administer upon arrival pregabalin 50 mg capsule RxNorm: 250854 Take 1 Capsule(s) Oral QAM every morning 10/16/19 22 022 Inactive pregabalin 50 mg capsule RxNorm: 516926 Take 1 Capsule(s) Oral QAM every morning 10/16/19 22 022 Inactive pregabalin 50 mg capsule RxNorm: 148182 1 Capsule(s) Oral QAM every morning 10/15/19 22 022 Inactive Shingrix (PF) 50 mcg/0.5 mL intramuscular suspension, kit RxNorm: 3223159 Administer 1/2 Milliliter(s) Intramuscular one time Nursing please administer upon arrival and once administered post a bridge message with date of administration, funeral greeter, expiration date, and lot# so we can update [facility]. 10/09/19 22 022 Inactive shingrix step 1 Shingrix (PF) 50 mcg/0.5 mL intramuscular suspension, kit RxNorm: 9248542 Administer 1/2 Milliliter(s) Intramuscular one time Nursing please administer upon arrival and once administered post a bridge message with date of administration, funeral greeter, expiration date, and lot# so we can [...] aspart 100 unit/mL (3 mL) subcutaneous RxNorm: 0027073 Inject 10 Unit(s) Subcutaneous QHS every night at bedtime with nighttime snack 10/08/19 22 Inactive Shingrix (PF) 50 mcg/0.5 mL intramuscular suspension, kit RxNorm: 4670614 ADMINISTER 2-DOSE SERIES PER CDC GUIDELINES 10/08/19 22 Active Shingrix (PF) 50 mcg/0.5 mL intramuscular suspension, kit RxNorm: 4314469 ADMINISTER 2-DOSE SERIES PER CDC GUIDELINES 10/08/19 22 Inactive Novolog Flexpen U-100 Insulin aspart 100 unit/mL (3 mL) subcutaneous RxNorm: 5899255 Inject 36 Unit(s) Subcutaneous TID in addition to sliding scale 10/08/19 Inactive cholecalciferol (vitamin D3) 1,250 mcg (50,000 unit) capsule RxNorm: 573586 Take 1 Capsule(s) Oral QW once a week 10/08/19 Inactive Novofine Autocover 30 gauge x 1/3 needle RxNorm: Use 1 Miscellaneous UD as directed Use 1 needle as directed to administer insulin 5 times a day Dx:E11.42. 10/03/19 22 Inactive ok to substitute with any covered alternative pen needle benzoyl peroxide 10 % topical cleanser RxNorm: 992319 Apply 1 Application Topical QD apply to face, wash rinse and dry once daily (may change to QOD if drying) 08/19/19 22 022 Inactive (%covered by insurance) #60ml refill 11 dx: acne benzoyl peroxide 10 % topical cleanser RxNorm: 595565 Apply 1 Application Topical QD apply to face, wash rinse and dry once daily (may change to QOD if drying) 08/19/19 22 022 Inactive (%covered by insurance) #60ml refill 11 dx: acne benzoyl peroxide 10 % topical cleanser RxNorm: 296529 Apply 1 Application Topical QD apply to face, wash rinse and dry once daily (may change to QOD if drying) 08/19/19 22 022 Inactive (%covered by insurance) #60ml refill 11 dx: acne Lyrica 50 mg capsule RxNorm: 503616 Take 1 Capsule(s) Oral QAM every morning Take 1 capsule by mouth once daily 08/19/19 22 Inactive benzoyl peroxide 10 % topical cleanser RxNorm: 561555 Apply 1 Application Topical QD apply to face, wash rinse and dry once daily (may change to QOD if drying) 08/19/19 22 Inactive (%covered by insurance) #60ml refill 11 dx: acne Lyrica 100 mg capsule RxNorm: 823031 Take 1 Capsule(s) Oral QHS every night at bedtime Take 1 capsule by mouth once daily at bedtime 08/19/19 22 022 Inactive Lyrica 100 mg capsule RxNorm: 787164 Take 1 Capsule(s) Oral QHS every night at bedtime Take 1 capsule by mouth once daily at bedtime 08/16/19 22 022 Inactive Lyrica 50 mg capsule RxNorm: 857566 Take 1 Capsule(s) Oral QAM every morning Take 1 capsule by mouth once daily 08/16/19 22 Inactive Levemir FlexTouch U-100 Insulin 100 unit/mL (3 mL) subcutaneous pen RxNorm: 242617 Inject 86 Unit(s) Subcutaneous BID 08/05/19 22 022 Inactive d/c 83units BID Lyrica 100 mg capsule RxNorm: 823701 Take 1 Capsule(s) Oral QHS every night at bedtime Take 1 capsule by mouth once daily at bedtime 07/14/19 22 022 Inactive Lyrica 50 mg capsule RxNorm: 602777 Take 1 Capsule(s) Oral QAM every morning Take 1 capsule by mouth once daily 07/14/19 22 022 Inactive Levemir FlexTouch U-100 Insulin 100 unit/mL (3 mL) subcutaneous pen RxNorm: 809112 Inject 83 Unit(s) Subcutaneous BID 07/08/19 22 [...] test strip hydralazine 50 mg tablet RxNorm: 583326 Take 1 Tablet(s) Oral QID 05/05/20 21 022 Inactive venlafaxine ER 225 mg tablet,extended release 24 hr RxNorm: 237359 Take 1 Tablet(s) Oral QD 05/05/20 21 021 Inactive venlafaxine ER 225 mg tablet,extended release 24 hr RxNorm: 034972 Take 1 Tablet(s) Oral QD 05/05/20 21 022 Inactive isosorbide mononitrate ER 30 mg tablet,extended release 24 hr RxNorm: 226567 Take 1 Tablet(s) Oral QD 05/05/20 21 024 Inactive hydralazine 50 mg tablet RxNorm: 612269 Take 1 Tablet(s) Oral QID 05/05/20 21 021 Inactive aspirin 81 mg tablet,delayed release RxNorm: 549251 Take 1 Tablet(s) Oral QD 03/31/20 022 Inactive Vitamin D2 1,250 mcg (50,000 unit) capsule RxNorm: 2882984 Take 1 Capsule(s) Oral QW once a week x 12 weeks 03/31/20 022 Inactive Vitamin D2 1,250 mcg (50,000 unit) capsule RxNorm: 5949936 Take 1 Capsule(s) Oral QW once a week 03/31/20 021 Inactive Zetia 10 mg tablet RxNorm: 192522 Take 1 Tablet(s) Oral QD 03/31/20 024 Inactive Zetia 10 mg tablet RxNorm: 529976 Take 1 Tablet(s) Oral QD 03/31/20 021 Inactive hydralazine 25 mg tablet RxNorm: 894492 Take 1 Tablet(s) Oral QID 03/31/20 021 Inactive hydralazine 25 mg tablet RxNorm: 417023 Take 1 Tablet(s) Oral QID 03/31/20 021 Inactive hydralazine 10 mg tablet RxNorm: 542186 Take 1 Tablet(s) Oral QID 03/03/20 021 Inactive cephalexin 500 mg tablet RxNorm: 596139 Take 1 Tablet(s) Oral QID 02/27/20 021 Inactive cephalexin 500 mg tablet RxNorm: 190235 Take 1 Tablet(s) Oral QID 02/27/20 021 Inactive lisinopril 40 mg tablet RxNorm: 687382 Take 1 Tablet(s) Oral QD 02/11/20 21 023 Inactive Eliquis 5 mg tablet RxNorm: 4782695 Take 1 Tablet(s) Oral BID 01/05/20 21 025 Inactive Eliquis 5 mg tablet RxNorm: 7417970 Take 2 Tablet(s) Oral QD 01/01/20 21 021 Inactive Lyrica 50 mg capsule RxNorm: 600301 Take 1 Capsule(s) Oral QAM every morning 12/24/19 21 021 Inactive Lyrica 100 mg capsule RxNorm: 072689 Take 1 Capsule(s) Oral QHS every night at bedtime 12/24/19 21 021 Inactive clotrimazole 1 % topical cream RxNorm: 691327 Apply to right foot and toes Topical BID 12/04/19 21 023 Inactive metoprolol succinate ER 200 mg tablet,extended release 24 hr RxNorm: 219218 Take 1 Tablet(s) Oral QD 12/04/19 21 023 Inactive ciprofloxacin 500 mg tablet RxNorm: 188802 Take 1 Tablet(s) Oral QD 11/30/19 21 021 Inactive DX ofloxacin otic drops Accu-Chek Guide test strips RxNorm: USE 1 TO CHECK GLUCOSE 4 TIMES DAILY AND NEEDED 11/15/19 023 Inactive Blood Glucose Test strips RxNorm: Use 1 Test Strip QID at PRN 11/05/19 21 023 Inactive E11.42 lisinopril 30 mg tablet RxNorm: 596352 Take 1 Tablet(s) Oral QD 10/30/19 021 Inactive lisinopril 20 mg tablet RxNorm: 836445 Take 1 Tablet(s) Oral QD 10/23/19 21 021 Inactive lisinopril 20 mg tablet RxNorm: 217922 Take 1 Tablet(s) Oral QD 10/23/19 21 021 Inactive lisinopril 10 mg tablet RxNorm: 130576 Take 1 Tablet(s) Oral QD 10/02/19 21 021 Inactive icosapent ethyl 1 gram capsule RxNorm: 1460686 Take 2 Capsule(s) (2 gm) Oral BID with meals 09/12/19 024 Inactive Okay to dispense one 2gm tab if you have that available. icosapent ethyl 1 gram capsule RxNorm: 5613834 Take 2 Capsule(s) Oral BID 09/12/19 21 021 Inactive Okay to dispense one 2gm tab if you have that available. amlodipine 10 mg tablet RxNorm: 761990 Take 1 Tablet(s) Oral QD 09/04/19 21 021 Inactive aspirin 81 mg tablet,delayed release RxNorm: 086031 Take 1 Tablet(s) Oral QD 09/04/19 21 021 Inactive Levemir FlexTouch U-100 Insulin 100 unit/mL (3 mL) subcutaneous pen RxNorm: 795115 Inject 150 Unit(s) Subcutaneous BID 09/04/19 21 022 Inactive venlafaxine ER 150 mg tablet,extended release 24 hr RxNorm: 652556 Take 1 Tablet(s) Oral QD 09/04/19 21 021 Inactive clotrimazole-betame thasone 1 %-0.05 % topical cream RxNorm: 137434 Apply to rash on red area on left abdomen/chest Topical BID 08/10/19 21 021 Inactive amlodipine 5 mg tablet RxNorm: 156766 Take 1 Tablet(s) Oral QD 07/31/19 21 021 Inactive cephalexin 500 mg tablet RxNorm: 332676 Take 1 Tablet(s) Oral BID BID - Twice Daily 07/31/19 21 021 Inactive Start 08/01/20 pantoprazole 40 mg tablet,delayed release RxNorm: 906291 Take 1 Tablet(s) Oral QAM every morning 07/08/19 21 025 Inactive clopidogrel 75 mg tablet RxNorm: 347016 Take 1 Tablet(s) Oral QD 07/08/19 21 021 Inactive Blood Glucose Test strips RxNorm: Use 1 Test Strip QID at PRN 07/08/19 21 021 Inactive E11.42 senna 8.6 mg tablet RxNorm: 424144 Take 1 Tablet(s) Oral QD 07/08/19 21 025 Inactive Novolog Flexpen U-100 Insulin aspart 100 unit/mL (3 mL) subcutaneous RxNorm: 5701596 Administer per sliding scale Milliliter(s) Subcutaneous TID 151-200: 10 u; 201-250: 20 u; 251-300: 30 u; 301-350: 40 u; 351-400: 50 u. 07/08/19 21 022 Inactive lisinopril 5 mg tablet RxNorm: 629963 Take 1 Tablet(s) Oral QD 07/08/19 021 Inactive Novolog Flexpen U-100 Insulin aspart 100 unit/mL (3 mL) subcutaneous RxNorm: 0571569 Inject 85 Unit(s) Subcutaneous TID 07/08/19 022 Inactive pravastatin 80 mg tablet RxNorm: 109018 Take 1 Tablet(s) Oral QHS every night at bedtime 07/08/19 023 Inactive clotrimazole 1 % topical cream RxNorm: 813536 Apply to bilateral groin areas Topical BID 07/08/19 022 Inactive metoprolol succinate ER 200 mg tablet,extended release 24 hr RxNorm: 011997 Take 1 Tablet(s) Oral QD 07/08/19 021 Inactive Vitamin D3 25 mcg (1,000 unit) tablet RxNorm: 144655 Take 1 Tablet(s) Oral QD 07/08/19 021 Inactive isosorbide dinitrate 30 mg tablet RxNorm: 532198 Take 1 Tablet(s) Oral QD 07/08/19 021 Inactive carbamazepine 200 mg tablet RxNorm: 360846 Take 1 Tablet(s) Oral BID 07/08/19 025 Inactive Levemir FlexTouch U-100 Insulin 100 unit/mL (3 mL) subcutaneous pen RxNorm: 712354 Inject 140 Unit(s) Subcutaneous BID 07/08/19 021 Inactive torsemide 20 mg tablet RxNorm: 686784 Take 1 Tablet(s) Oral QD 07/08/19 023 Inactive venlafaxine 75 mg tablet RxNorm: 524865 Take 1 Tablet(s) Oral QD 07/08/19 021 Inactive acetaminophen 500 mg tablet RxNorm: 119368 Take 1 Tablet(s) Oral TID as needed for headache 06/18/19 021 Inactive acetaminophen 500 mg tablet RxNorm: 653060 Take 1 Tablet(s) Oral TID as needed for headache 06/18/19 21 021 Inactive Lyrica 100 mg capsule RxNorm: 807776 Take 1 Capsule(s) Oral QHS every night at bedtime 06/11/19 21 021 Inactive Lyrica 50 mg capsule RxNorm: 327294 Take 1 Capsule(s) Oral QAM every morning 06/10/19 21 021 Inactive hydrocortisone 2.5 % topical cream RxNorm: 214355 Apply to bilateral groin creases Topical BID 05/15/20 20 021 Inactive clotrimazole 1 % topical cream RxNorm: 999547 Apply to bilateral groin areas Topical BID 05/15/20 20 021 Inactive Lyrica 50 mg capsule RxNorm: 218850 Take 1 Capsule(s) Oral QAM every morning 05/14/20 20 Inactive Lyrica 100 mg capsule RxNorm: 307245 Take 1 Capsule(s) Oral QHS every night [...] Inactive Nystop 100,000 unit/gram topical powder RxNorm: 735254 Apply to abd folds, under breasts and L side of groin Topical BID x 14 days, then BID PRN 04/08/20 20 020 Inactive dx: yeast dermatitis Lyrica 100 mg capsule RxNorm: 899848 Take 1 Capsule(s) Oral QHS every night at bedtime 03/13/20 20 020 Inactive Lyrica 50 mg capsule RxNorm: 501637 Take 1 Capsule(s) Oral QAM every morning 03/13/20 20 Inactive ketoconazole 2 % shampoo RxNorm: 641315 Apply Topical two times a week with showers 03/11/20 20 024 Inactive cholecalciferol (vitamin D3) 50 mcg (2,000 unit) tablet RxNorm: 533132 Take 1 Tablet(s) Oral QD 03/11/20 20 021 Inactive Zetia 10 mg tablet RxNorm: 803277 Take 1 Tablet(s) Oral QD 03/07/20 20 021 Inactive Zetia 10 mg tablet RxNorm: 010612 Take 1 Tablet(s) Oral QD 03/07/20 20 Inactive Lyrica 50 mg capsule RxNorm: 779667 Take 1 Capsule(s) Oral QAM every morning 02/15/20 20 Inactive Lyrica 100 mg capsule RxNorm: 490390 Take 1 Capsule(s) Oral QHS every night at bedtime 02/15/20 20 Inactive Lyrica 100 mg capsule RxNorm: 997405 Take 1 Capsule(s) Oral QHS every night at bedtime 02/15/20 20 Inactive Lyrica 50 mg capsule RxNorm: 289796 Take 1 Capsule(s) Oral QAM every morning 02/15/20 20 020 Inactive loperamide 2 mg capsule RxNorm: 829298 Take 1 Capsule(s) Oral QID as needed 09/06/19 025 Inactive venlafaxine ER 75 mg capsule,extended release 24 hr RxNorm: 488091 Take 3 Capsule(s) Oral QD 06/12/19 22 023 Inactive polyethylene glycol 3350 17 gram/dose oral powder RxNorm: 452741 Take 17=1 capful Gram(s) Oral BID as needed mix with 4-8oz of liquid 06/12/19 22 024 Inactive icosapent ethyl 1 gram capsule RxNorm: 3391611 Take 2 Capsule(s) (2 gm) Oral BID with meals 10/07/19 23 023 Inactive Okay to dispense one 2gm tab if you have that available. Levemir FlexTouch U-100 Insulin 100 unit/mL (3 mL) subcutaneous pen RxNorm: 639041 Inject 80 Unit(s) Subcutaneous BID 07/14/19 23 023 Inactive metoprolol succinate ER 200 mg tablet,extended release 24 hr RxNorm: 786036 Take 1 Tablet(s) Oral QD 08/12/19 23 025 Inactive hydralazine 50 mg tablet RxNorm: 415594 Take 1 Tablet(s) Oral QID 08/12/19 23 025 Inactive Soft Touch Lancets RxNorm: miscellaneous 03/04/20 24 025 Inactive Novolog Flexpen U-100 Insulin aspart 100 unit/mL (3 mL) subcutaneous RxNorm: 6695074 Insert 30 Unit(s) Subcutaneous TID with meals [...] Planned Activity Notes Codes Status Date Referral: [facility] W[facility]: [address] [id number] [place] Referral Appointment Scheduled 10/20/2024 Referral: [facility]/Endocrinology WPtel: [address] [facility] [address] [id number] [place] Referral No Records Received 07/10/2024 Referral: [facility] WPtel: [address] [id number] [place] Referral Records Received 09/21/2022 Referral: [facility] WPtel: [phone] [facility] [address] [id number] [place] Referral Completed 05/28/2021 Referral: General Cardiology [...] Sister Jyotsna involved in his care cell# [phone] Guardian: Giulia (tapan met in person 09/01/21), [...] appointment 05.26.2024 with Jessa Webster MD at [facility]. Start Pioglitazone 15 mg QD. Stop Basaglar insulin. Increase Ozempic 2 mg once wkly. Continue Humalin R U-500 100 units with meals TID. FOLLOW UP 2 MONTHS. If BG >400 add 50 units to next scheduled dose of Humalin R U 500 insulin 06/12/2024
--- OUTSIDE RECORDS SUMMARY | 2024-10-19 19:46 | XMS_ITS | CCD ---
Author Name Cecilio Durham Address [address] [place] [address] Phone Organization [facility] Phone Care Team Providers Care Heel Builder Machine Name Role Phone Harrison Durham Primary Care Provider Leona vailable Unavailable Chronic Care Management Unavaila ble Summary Purpose DataExchange Insurance Providers Payer name Policy type / Coverage type Covered constitution party ID Effective Begin Date Effective End Date Medicare [place] Medicare Part B [id number] Unknown Unknown [place] Medicare Part B [id number] Unknown Unknown Family history Sister Brittany Suggs [...] on file 07/11/[address]: [id number] Never smoker 01/16 Sexually Active? Unknown No [...] Nursing Home 09/03/[address]: [id number] No Alcohol Consum ption 09/02/2020 Allergies, Adverse Reactions, Alerts Substance Reaction Codes Entered Date Inactivated Date Status * NO KNOWN FOOD ALLERGIES Unknown 07/13/2023 No Inactive Date Active LISINOPRIL RxNorm: 39676 02/12/2020 No Inactive Da te Active Metformin [...] 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 Other manager intermediate (current) dr ug therapy ICD-10: Z79.899 [...] 09/07/2023 Resolved Coronary artery disease invo lving [place] coronary artery of [place] heart, angina presence unspecified ICD-10: I25.10 ICD-9: [...] (Concentrated) Insulin 500 unit/mL subcutaneous soln RxNorm: 389029 Inject 100 Unit(s) Subcutaneous AC before meals Three times daily before meals. 07/24/19 25 025 Inactive ammonium lactate 12 % topical cream RxNorm: 850299 Apply 1 Application Topical BID 07/20/19 25 No Stop Date Active senna 8.6 mg tablet RxNorm: 209952 Take 1 Tablet(s) Oral QD 07/18/19 25 025 Inactive ezetimibe 10 mg tablet RxNorm: 291181 Take 1 Tablet(s) Oral QD 07/18/19 25 No Stop Date Active metoprolol succinate ER 200 mg tablet,extended release 24 hr RxNorm: 275166 Take 1 Tablet(s) Oral QD 06/19/19 25 No Stop Date Active pantoprazole 40 mg tablet,delayed release RxNorm: 944230 Take 1 Tablet(s) Oral QAM every morning 06/19/19 25 No Stop Date Active hydralazine 50 mg tablet RxNorm: 025113 Take 1 Tablet(s) Oral QID 06/19/19 25 No Stop Date Active carbamazepine 200 mg tablet RxNorm: 672635 Take 1 Tablet(s) Oral BID 06/19/19 25 No Stop Date Active amlodipine 10 mg tablet RxNorm: 966541 Take 1 Tablet(s) Oral QD 06/19/19 25 No Stop Date Active Eliquis 5 mg tablet RxNorm: 0739478 Take 1 Tablet(s) Oral BID 06/19/19 25 No Stop Date Active pen needle, diabetic 30 gauge x 3/16 RxNorm: Use 1 6 times per day w/insulin 06/14/19 25 026 Active pen needle, diabetic 30 gauge x 3/16 RxNorm: Use 1 needle 6 times per day w/insulin 06/14/19 25 025 Inactive nystatin 100,000 unit/gram topical powder RxNorm: 581959 Apply 1 Application Topical BID as needed abdominal/breast /groin folds 05/24/19 25 026 Active pregabalin 100 mg capsule RxNorm: 969451 Take 1 Capsule(s) Oral QAM every morning 05/22/19 25 025 Inactive nystatin 100,000 unit/gram topical powder RxNorm: 870558 Apply 1 Application Topical BID as needed abdominal/breast /groin folds 04/11/20 24 024 Inactive chlorthalidone 25 mg tablet RxNorm: 951989 Take 1 Tablet(s) Oral QAM every morning 04/06/20 24 No Stop Date Active pregabalin 150 mg capsule RxNorm: 928115 Take 1 Capsule(s) Oral QHS every night at bedtime 03/31/20 24 024 Inactive Vascepa 1 gram capsule RxNorm: 0183181 Take 2 Capsule(s) Oral BID 03/30/20 24 025 Active rosuvastatin 40 mg tablet RxNorm: 311438 1 TAB ORALLY EVERY EVENING (DX:CORONARY ARTERY DISEASE) 03/28/20 No Stop Date Active venlafaxine ER 75 mg capsule,extended release 24 hr RxNorm: 696329 3 CAPS (225MG) ORALLY DAILY (DX: MOOD DISORDER) 03/28/20 No Stop Date Active pregabalin 100 mg capsule RxNorm: 135196 Take 1 Capsule(s) Oral QAM every morning 03/20/20 Inactive cholecalciferol (vitamin D3) 1,250 mcg (50,000 unit) capsule RxNorm: 840340 Take 1 Capsule(s) Oral QW once a [...] Insulin 100 unit/mL (3 mL) subcutaneous RxNorm: 5277718 Inject 40 Unit(s) Subcutaneous BID 03/07/20 025 Inactive Please dispense one month supply. Humulin R U-500 (Concentrated) Insulin 500 unit/mL subcutaneous soln RxNorm: 565656 Inject 100 Unit(s) Subcutaneous AC before meals [...] PRN) to be use with new Accu [place] meter 03/04/20 Inactive ok to substitute with any covered alternative test strip FreeStyle Chema 2 Sensor kit RxNorm: Use UD as directed 03/02/20 Inactive Pen Needle 30 gauge x 516 RxNorm: Pen(s) Use 1 needle as directed TID 03/02/20 Inactive nystatin 100,000 unit/gram topical powder RxNorm: 339435 Apply 1 Application Topical BID as needed [...] (Concentrated) Insulin 500 unit/mL subcutaneous soln RxNorm: 782433 Inject 100 Unit(s) Subcutaneous TID 02/17/20 24 Inactive Humulin R U-500 (Concentrated) Insulin 500 unit/mL subcutaneous soln RxNorm: 229101 Inject 100 Unit(s) Subcutaneous TID 02/10/20 24 024 Inactive Basaglar KwikPen U-100 Insulin 100 unit/mL (3 mL) subcutaneous RxNorm: 1710038 Inject 30 Unit(s) Subcutaneous BID 09/26/ 024 Inactive Please dispense one month supply. pregabalin 100 mg capsule RxNorm: 022595 Take 1 Capsule(s) Oral QAM every morning 02/07/20 24 024 Inactive isosorbide mononitrate ER 60 mg tablet,extended release 24 hr RxNorm: 425529 Take 1 Tablet(s) Oral QD 02/01/20 24 025 Active aripiprazole 15 mg tablet RxNorm: 121396 Take 1/2 Tablet(s) Oral QD 02/01/20 24 025 Active torsemide 20 mg tablet RxNorm: 452511 1 TAB ORALLY DAILY (DX: EDEMA) 01/27/20 No Stop Date Active potassium chloride ER 20 mEq tablet,extended release(part/cryst) RxNorm: 1785806 2 TABS (40MEQ) ORALLY TWICE DAILY (DX: HYPOKALEMIA) 01/27/20 24 025 Inactive cephalexin 500 mg capsule RxNorm: 583241 Take 1 Capsule(s) Oral QID 12/17/19 24 024 Inactive cephalexin 500 mg capsule RxNorm: 601990 Take 1 Capsule(s) Oral QID 12/17/19 24 024 Inactive acetaminophen 500 mg tablet RxNorm: 575661 (MAX APAP:4GM/24HR) Take 1 Tablet(s) Oral TID as needed for pain 12/10/19 24 024 Inactive torsemide 20 mg tablet RxNorm: 444495 Take 1 Tablet(s) Oral QD 10/26/19 24 Inactive potassium chloride ER 20 mEq tablet,extended release RxNorm: 066853 Take 2 Tablet(s) Oral BID 10/26/19 24 025 Inactive torsemide 20 mg tablet RxNorm: 535134 Take 1 Tablet(s) Oral QD 10/26/19 24 024 Inactive potassium chloride ER 20 mEq tablet,extended release RxNorm: 062566 Take 2 Tablet(s) Oral BID 10/26/19 24 024 Inactive Artificial Tears (PF) 0.1 %-0.3 % drops in a dropperette RxNorm: 792446 Apply 1-2 Drop(s) Both eyes BID as needed 09/28/19 025 Inactive erythromycin 5 mg/gram (0.5 %) eye ointment RxNorm: 508398 Apply 1 Application Both eyes QHS every night at bedtime Instill ~1 cm ribbon into affected eye 09/28/19 24 024 Inactive Artificial Tears (PF) 0.1 %-0.3 % drops in a dropperette RxNorm: 986286 Apply 1-2 Drop(s) Both eyes BID as needed 09/28/19 24 024 Inactive erythromycin 5 mg/gram (0.5 %) eye ointment RxNorm: 006896 Apply 1 Application Both eyes QHS every night at bedtime Instill ~1 cm ribbon into affected eye 09/28/19 24 024 Inactive acetaminophen 500 mg tablet RxNorm: 173020 (MAX APAP:4GM/24HR) Take 1 Tablet(s) Oral TID as needed for pain 09/24/19 Inactive carvedilol 25 mg tablet RxNorm: 096164 Take 1 Tablet(s) Oral QD 09/08/19 No Stop Date Active pregabalin 100 mg capsule RxNorm: 537625 Take 1 Capsule(s) Oral QAM every morning 09/07/19 24 024 Inactive bisacodyl 10 mg rectal suppository RxNorm: 957364 Insert 1 Suppository Rectal QD as needed 07/13/19 24 No Stop Date Active polyethylene glycol 3350 17 gram/dose oral powder RxNorm: 457573 Take 17 Gram(s) Oral BID as needed mix in 4-8ox water 07/13/19 24 025 Inactive ketoconazole 2 % shampoo RxNorm: 657237 Apply 1 Application Topical UD as directed 07/13/19 24 No Stop Date Active Ozempic 1 mg/dose (4 mg/3 mL) subcutaneous pen injector RxNorm: 8831731 Inject 1 Milligram(s) Subcutaneous QW once a week 07/13/19 24 No Stop Date Active Guaifenesin AC 10 mg-100 mg/5 mL oral liquid RxNorm: 143778 Take 10 Milliliter(s) Oral Q4H every four hours as needed 07/13/19 24 No Stop Date Active hydrocortisone 2.5 % topical cream RxNorm: 004578 Apply 1 Application Topical BID as needed 07/13/19 No Stop Date Active rosuvastatin 20 mg sprinkle capsule RxNorm: 3190170 Take 1 Capsule(s) Oral QD 07/13/19 24 025 Inactive rosuvastatin 40 mg tablet RxNorm: 687777 Take 1 Tablet(s) Oral QPM every evening 07/13/19 24 024 Inactive ezetimibe 10 mg tablet RxNorm: 924073 Take 1 Tablet(s) Oral QD 07/13/19 24 025 Inactive aripiprazole 15 mg tablet RxNorm: 124980 Take 1/2 Tablet(s) Oral QD 07/13/19 24 024 Inactive isosorbide mononitrate ER 60 mg tablet,extended release 24 hr RxNorm: 656961 Take 1 Tablet(s) Oral QD 07/13/19 24 024 Inactive ammonium lactate 12 % topical cream RxNorm: 495814 Apply 1 Application Topical BID 07/13/19 24 025 Inactive Vascepa 1 gram capsule RxNorm: 2527197 Take 2 Capsule(s) Oral BID 07/13/19 24 024 Inactive venlafaxine ER 75 mg capsule,extended release 24 hr RxNorm: 236701 Take 3 Capsule(s) Oral QD 07/13/19 24 024 Inactive Basaglar KwikPen U-100 Insulin 100 unit/mL (3 mL) subcutaneous RxNorm: 0679432 Inject 30U SubQ twice daily 07/07/19 24 024 Inactive Please dispense one month supply. Basaglar KwikPen U-100 Insulin 100 unit/mL (3 mL) subcutaneous RxNorm: 6129030 Inject 30U SubQ twice daily 07/07/19 24 024 Inactive Please dispense one month supply. pregabalin 150 mg capsule RxNorm: 693039 Take 1 Capsule(s) Oral QHS every night at bedtime 07/05/19 24 024 Inactive pregabalin 150 mg capsule RxNorm: 208143 Take 1 Capsule(s) Oral QHS every night at bedtime 07/05/19 024 Inactive polyethylene glycol 3350 17 gram/dose oral powder RxNorm: 827447 Take 1 Packet Oral QD as needed (1 packet = 17g) mix with 4-8oz of liquid 06/15/19 024 Inactive bisacodyl 10 mg rectal suppository RxNorm: 986489 Insert one suppository per rectum once daily as needed for constipation 06/15/19 024 Inactive bisacodyl 10 mg rectal suppository RxNorm: 296926 Insert one suppository per rectum once daily as needed for constipation 06/15/19 024 Inactive pregabalin 100 mg capsule RxNorm: 283125 Take 1 Capsule(s) Oral QAM every morning 04/27/20 024 Inactive Levemir FlexPen 100 unit/mL (3 mL) solution subcutaneous insulin pen RxNorm: 022002 Inject 30 Unit(s) Subcutaneous BID 04/27/20 024 Inactive rosuvastatin 40 mg tablet RxNorm: 434509 Take 1 Tablet(s) Oral QPM every evening 04/16/20 024 Inactive D/C rosuvastatin 20mg venlafaxine ER 75 mg capsule,extended release 24 hr RxNorm: 786349 Take 3 Capsule(s) Oral QD 04/14/20 023 Inactive pregabalin 100 mg capsule RxNorm: 816191 Take 1 Capsule(s) Oral QAM every morning [...] strip clotrimazole 1 % topical cream RxNorm: 052325 Take apply topically to abdominal folds twice daily for 14 days 03/12/20 024 Inactive Ozempic 1 mg/dose (4 mg/3 mL) subcutaneous pen injector RxNorm: 3626347 Inject 1 Milligram(s) Subcutaneous QW once a week 03/11/20 23 023 Inactive rosuvastatin 20 mg tablet RxNorm: 440285 Take 1 Tablet(s) Oral QD 02/26/20 23 023 Inactive d/c pravastatin 80mg Ozempic 1 mg/dose (4 mg/3 mL) subcutaneous pen injector RxNorm: 7333184 Inject 1 Milligram(s) Subcutaneous QW once a week 02/20/20 23 023 Inactive pregabalin 150 mg capsule RxNorm: 898395 Take 1 Capsule(s) Oral HS at bed time 02/19/20 23 023 Inactive pregabalin 100 mg capsule RxNorm: 711244 Take 1 Capsule(s) Oral QAM every morning 02/18/20 23 023 Inactive venlafaxine ER 75 mg capsule,extended release 24 hr RxNorm: 546750 Take 3 Capsule(s) Oral QD 02/04/20 23 023 Inactive FreeStyle Chema 2 Sensor kit RxNorm: use as directed 02/04/20 23 023 Inactive FreeStyle Chema 2 Sensor kit RxNorm: use as directed 02/04/20 23 024 Inactive fluconazole 150 mg tablet RxNorm: 889198 Take 1 Tablet(s) Oral on day 3 and on day 6 02/03/20 024 Inactive venlafaxine ER 150 mg capsule,extended release 24 hr RxNorm: 341932 Take 1 Capsule(s) Oral QD 02/03/20 23 023 Inactive chlorthalidone 25 mg tablet RxNorm: 776354 Take 1 Tablet(s) Oral QAM every morning 02/03/20 23 024 Inactive acetaminophen 500 mg tablet RxNorm: 366107 1 TABLET ORALLY 3 TIMES DAILY (MAX APAP:4GM/24HR) 12/15/19 23 023 Inactive clotrimazole 1 % topical cream RxNorm: 956452 apply 1g topically to top of feet and in between toes BID 12/09/19 23 025 Inactive potassium chloride ER 20 mEq tablet,extended release RxNorm: 825247 Take 1 Tablet(s) Oral BID 12/09/19 024 Inactive d/c 20mEq once daily (sent from hospital) nystatin 100,000 unit/gram topical powder RxNorm: 875783 APPLY TO AFFECTED AREAS TOPICALLY 2 TIMES DAILY 11/21/19 23 023 Inactive Nystop 100,000 unit/gram topical powder RxNorm: 099409 Apply to abd folds, under breasts and L side of groin Topical BID x 14 days, then BID PRN 11/20/19 023 Inactive dx: yeast dermatitis [place] Ultra Strength 4 %-30 %-10 % topical cream RxNorm: 345472 Apply 1 Gram(s) Topical QID PRN to feet and legs for neuropathic pain 11/11/19 024 Inactive clotrimazole 1 % topical cream RxNorm: 489182 Apply 1/2 Gram(s) Topical BID Apply to affected areas of groin, periarea, and abdominal topically 2 times daily 11/10/19 023 Inactive hydrocortisone 2.5 % topical cream RxNorm: 819663 Apply 1/2 Gram(s) Topical BID as needed 11/10/19 024 Inactive Levemir FlexPen 100 unit/mL (3 mL) solution subcutaneous insulin pen RxNorm: 245571 Inject 30 Unit(s) Subcutaneous BID 10/07/19 023 Inactive Humulin R U-500 (Concentrated) Insulin 500 unit/mL subcutaneous soln RxNorm: 879083 Inject 100 Unit(s) Subcutaneous TID 10/07/19 024 Inactive Ozempic 0.25 mg or 0.5 mg (2 mg/3 mL) subcutaneous pen injector RxNorm: 1452880 Inject 1/2 Milligram(s) Subcutaneous QW once a week 10/07/19 024 Inactive aripiprazole 15 mg tablet RxNorm: 419543 1/2 TAB (7.5MG) ORALLY DAILY (DX:MAJOR DEPRESSIVE DISORDER) 09/23/19 023 Inactive Accu-Chek Guide test strips RxNorm: Use 1 Test Strip QID 09/15/19 23 023 Inactive ok to substitute with any covered alternative test strip Lancets,Thin 28 gauge RxNorm: Use 1 as directed QID 09/15/19 23 023 Inactive torsemide 20 mg tablet RxNorm: 765025 Take 1 Tablet(s) Oral BID 09/09/19 23 024 Inactive d/c once daily dosing carvedilol 25 mg tablet RxNorm: 501194 Take 1 Tablet(s) Oral QD 08/25/19 23 024 Inactive pregabalin 150 mg capsule RxNorm: 541501 1 Capsule(s) Oral HS at bed time 08/18/19 23 023 Inactive pregabalin 100 mg capsule RxNorm: 613040 1 Capsule(s) Oral QAM every morning 08/18/19 23 023 Inactive carvedilol 25 mg tablet RxNorm: 331681 1 Tablet(s) Oral QD 07/28/19 23 023 Inactive lisinopril 20 mg tablet RxNorm: 442762 Give 1 Tablet(s) Oral QD 07/28/19 23 023 Inactive Lyrica 150 mg capsule RxNorm: 392801 Take 1 Capsule(s) Oral QHS every night at bedtime 07/19/19 23 023 Inactive d/c 100mg dose Diflucan 150 mg tablet RxNorm: 032269 Take 1 Tablet(s) Oral QD repeat on day 3 and 6 07/19/19 23 023 Inactive pregabalin 100 mg capsule RxNorm: 774916 Take 1 Capsule(s) Oral QAM every morning 07/19/19 23 023 Inactive gatifloxacin 0.5 % eye drops RxNorm: 524762 Instill 1 Drop(s) as directed TID Instill 1 drop in to affected eye(s) starting 1 day prior to surgery and continue until gone (do not exceed 4 weeks). 07/13/19 23 023 Inactive carvedilol 25 mg tablet RxNorm: 112141 2 Tablet(s) Oral BID 07/13/19 23 023 Inactive Humulin R Regular U-100 Insulin 100 unit/mL injection solution RxNorm: 653820 85 Unit(s) Injection TID 07/13/19 23 023 Inactive ketorolac 0.5 % eye drops RxNorm: 170386 Instill 1 Drop(s) as directed QID Instill 1 drop into affected eye(s) 4 times daily starting 1 day prior to surgery and continue until gone (do not exceed 4 weeks). 07/13/19 23 023 Inactive Diflucan 150 mg tablet RxNorm: 783299 Take 1 Tablet(s) Oral QD repeat on day 3 and 6 06/30/19 23 023 Inactive Accu-Chek Guide test strips RxNorm: Use 1 Test Strip QID Use 1 test strip to monitor blood glucose 4 times daily and as needed. Dx:E11.42. 06/23/19 23 023 Inactive ok to substitute with any covered alternative test strip dextromethorphan-gu aifenesin 10 mg-100 mg/5 mL oral liquid RxNorm: 452948 Take 10 Milliliter(s) Oral every 4 hours as needed for cough 06/19/19 23 023 Inactive dextromethorphan-gu aifenesin 10 mg-100 mg/5 mL oral liquid RxNorm: 734759 Take 10 Milliliter(s) Oral every 4 hours as needed for cough 06/19/19 23 023 Inactive Lyrica 150 mg capsule RxNorm: 496378 Take 1 Capsule(s) Oral QHS every night at bedtime 06/18/19 23 023 Inactive d/c 100mg dose aripiprazole 15 mg tablet RxNorm: 393183 /2 TAB (7.5MG) ORALLY DAILY (DX:MAJOR DEPRESSIVE DISORDER) 06/05/19 23 023 Inactive pregabalin 100 mg capsule RxNorm: 706875 1 Capsule(s) Oral QAM every morning 06/02/19 23 023 Inactive Banophen 50 mg capsule RxNorm: 7177762 Take 1 Capsule(s) Oral Q6H every 6 hours as needed 05/19/19 23 No Stop Date Active Novolog Flexpen U-100 Insulin aspart 100 unit/mL (3 mL) subcutaneous RxNorm: 8103225 Inject 10 Unit(s) Subcutaneous QHS every night at bedtime with nighttime snack 04/08/20 022 Inactive Novolog Flexpen U-100 Insulin aspart 100 unit/mL (3 mL) subcutaneous RxNorm: 1601878 Inject 42 Unit(s) Subcutaneous TID in addition to sliding scale 04/08/20 Inactive d/c 36u albuterol sulfate HFA 90 mcg/actuation aerosol inhaler RxNorm: 7207680 Take 2 Puff(s) Inhalation Q4H every four hours as needed as needed for SOB, cough, or wheezing 04/07/20 030 Active Banophen 50 mg capsule RxNorm: 3387615 Take 1 Capsule(s) Oral Q6H every 6 hours as needed 04/06/20 023 Inactive diphenhydramine 50 mg tablet RxNorm: 3890321 Take 1 Tablet(s) Oral Q6H every 6 hours as needed 04/06/20 022 Inactive diphenhydramine 50 mg tablet RxNorm: 6177232 1 Tablet(s) Oral Q6H every 6 hours as needed 04/06/20 022 Inactive Abilify 15 mg tablet RxNorm: 963879 1/2 Tablet(s) Oral QD 03/10/20 023 Inactive Shingrix (PF) 50 mcg/0.5 mL intramuscular suspension, kit RxNorm: 0673581 Administer 1/2 Milliliter(s) Intramuscular QD one time shingrix step 2 ( step 1 given 11/04/21) WITH needle - Nursing please administer upon arrival and once administered post a bridge message with date of administration, statistical financial analyst, expiration date, and lot# so we can update [facility] 02/18/20 022 Inactive dispense with needle Shingrix (PF) 50 mcg/0.5 mL intramuscular suspension, kit RxNorm: 3785813 Administer 1/2 Milliliter(s) Intramuscular QD one time shingrix step 2 ( step 1 given 11/04/21) WITH needle - Nursing please administer upon arrival and once administered post a bridge message with date of administration, statistical financial analyst, expiration date, and lot# so we can update [facility] 02/18/20 22 Inactive dispense with needle polyethylene glycol 3350 17 gram/dose oral powder RxNorm: 731030 Take 17=1 capful Gram(s) Oral QD mix with 4-8oz of liquid 01/08/20 22 025 Inactive take this in addition to BID prn order Lyrica 100 mg capsule RxNorm: 693855 Take 1 Capsule(s) Oral QAM every morning 01/08/20 22 022 Inactive d/c 50mg dose acetaminophen 500 mg tablet RxNorm: 855008 Take 1 Tablet(s) Oral TID 01/08/20 22 022 Inactive d/c PRN order Lyrica 150 mg capsule RxNorm: 183573 Take 1 Capsule(s) Oral QHS every night at bedtime 01/08/20 22 023 Inactive d/c 100mg dose Abilify 5 mg tablet RxNorm: 552608 Take 1 Tablet(s) Oral QD take 1 tab po QD #30 refill 5 dx: MDD 12/12/19 22 022 Inactive Abilify 5 mg tablet RxNorm: 172947 Take 1 Tablet(s) Oral QD take 1 tab po QD #30 refill 5 dx: MDD 12/12/19 22 022 Inactive Novolog Flexpen U-100 Insulin aspart 100 unit/mL (3 mL) subcutaneous RxNorm: 3971848 Inject 42 Unit(s) Subcutaneous TID in addition to sliding scale 12/10/19 22 022 Inactive d/c 36u chlorthalidone 25 mg tablet RxNorm: 239545 Take 1 Tablet(s) Oral QAM every morning 12/10/19 22 023 Inactive pregabalin 50 mg capsule RxNorm: 922570 Take 1 Capsule(s) Oral QAM every morning 11/12/19 22 022 Inactive tetanus-diphtheria toxoids-Td 2 Lf unit-2 Lf unit/0.5 mL IM suspension RxNorm: 139 Take 0.5 Miscellaneous Intramuscular 11/12/19 22 022 Inactive need tdap - nursing to administer upon arrival pregabalin 50 mg capsule RxNorm: 271554 Take 1 Capsule(s) Oral QAM every morning 10/16/19 22 022 Inactive pregabalin 50 mg capsule RxNorm: 895562 Take 1 Capsule(s) Oral QAM every morning 10/16/19 22 022 Inactive pregabalin 50 mg capsule RxNorm: 230386 1 Capsule(s) Oral QAM every morning 10/15/19 22 Inactive Shingrix (PF) 50 mcg/0.5 mL intramuscular suspension, kit RxNorm: 8181278 Administer 1/2 Milliliter(s) Intramuscular one time Nursing please administer upon arrival and once administered post a bridge message with date of administration, statistical financial analyst, expiration date, and lot# so we can update [facility]. 10/09/19 22 022 Inactive shingrix step 1 Shingrix (PF) 50 mcg/0.5 mL intramuscular suspension, kit RxNorm: 1504322 Administer 1/2 Milliliter(s) Intramuscular one time Nursing please administer upon arrival and once administered post a bridge message with date of administration, statistical financial analyst, expiration date, and lot# so we [...] aspart 100 unit/mL (3 mL) subcutaneous RxNorm: 1124057 Inject 10 Unit(s) Subcutaneous QHS every night at bedtime with nighttime snack 10/08/19 22 022 Inactive Shingrix (PF) 50 mcg/0.5 mL intramuscular suspension, kit RxNorm: 1032687 ADMINISTER 2-DOSE SERIES PER CDC GUIDELINES 10/08/19 22 022 Active Shingrix (PF) 50 mcg/0.5 mL intramuscular suspension, kit RxNorm: 4874633 ADMINISTER 2-DOSE SERIES PER CDC GUIDELINES 10/08/19 22 Inactive Novolog Flexpen U-100 Insulin aspart 100 unit/mL (3 mL) subcutaneous RxNorm: 0729474 Inject 36 Unit(s) Subcutaneous TID in addition to sliding scale 10/08/19 022 Inactive cholecalciferol (vitamin D3) 1,250 mcg (50,000 unit) capsule RxNorm: 116917 Take 1 Capsule(s) Oral QW once a week 10/08/19 Inactive Novofine Autocover 30 gauge x 1/3 needle RxNorm: Use 1 Miscellaneous UD as directed Use 1 needle as directed to administer insulin 5 times a day Dx:E11.42. 10/03/19 Inactive ok to substitute with any covered alternative pen needle benzoyl peroxide 10 % topical cleanser RxNorm: 508496 Apply 1 Application Topical QD apply to face, wash rinse and dry once daily (may change to QOD if drying) 08/19/19 22 022 Inactive (%covered by insurance) #60ml refill 11 dx: acne benzoyl peroxide 10 % topical cleanser RxNorm: 055980 Apply 1 Application Topical QD apply to face, wash rinse and dry once daily (may change to QOD if drying) 08/19/19 22 022 Inactive (%covered by insurance) #60ml refill 11 dx: acne benzoyl peroxide 10 % topical cleanser RxNorm: 624741 Apply 1 Application Topical QD apply to face, wash rinse and dry once daily (may change to QOD if drying) 08/19/19 22 022 Inactive (%covered by insurance) #60ml refill 11 dx: acne Lyrica 50 mg capsule RxNorm: 268278 Take 1 Capsule(s) Oral QAM every morning Take 1 capsule by mouth once daily 08/19/19 22 022 Inactive benzoyl peroxide 10 % topical cleanser RxNorm: 813342 Apply 1 Application Topical QD apply to face, wash rinse and dry once daily (may change to QOD if drying) 08/19/19 22 Inactive (%covered by insurance) #60ml refill 11 dx: acne Lyrica 100 mg capsule RxNorm: 651190 Take 1 Capsule(s) Oral QHS every night at bedtime Take 1 capsule by mouth once daily at bedtime 08/19/19 22 022 Inactive Lyrica 100 mg capsule RxNorm: 928522 Take 1 Capsule(s) Oral QHS every night at bedtime Take 1 capsule by mouth once daily at bedtime 08/16/19 22 022 Inactive Lyrica 50 mg capsule RxNorm: 436635 Take 1 Capsule(s) Oral QAM every morning Take 1 capsule by mouth once daily 08/16/19 22 022 Inactive Levemir FlexTouch U-100 Insulin 100 unit/mL (3 mL) subcutaneous pen RxNorm: 277970 Inject 86 Unit(s) Subcutaneous BID 08/05/19 22 022 Inactive d/c 83units BID Lyrica 100 mg capsule RxNorm: 770644 Take 1 Capsule(s) Oral QHS every night at bedtime Take 1 capsule by mouth once daily at bedtime 07/14/19 22 022 Inactive Lyrica 50 mg capsule RxNorm: 780446 Take 1 Capsule(s) Oral QAM every morning Take 1 capsule by mouth once daily 07/14/19 22 022 Inactive Levemir FlexTouch U-100 Insulin 100 unit/mL (3 mL) subcutaneous pen RxNorm: 946478 Inject 83 Unit(s) Subcutaneous BID 07/08/19 22 [...] test strip hydralazine 50 mg tablet RxNorm: 234098 Take 1 Tablet(s) Oral QID 05/05/20 21 022 Inactive venlafaxine ER 225 mg tablet,extended release 24 hr RxNorm: 600287 Take 1 Tablet(s) Oral QD 05/05/20 21 021 Inactive venlafaxine ER 225 mg tablet,extended release 24 hr RxNorm: 877866 Take 1 Tablet(s) Oral QD 05/05/20 21 022 Inactive isosorbide mononitrate ER 30 mg tablet,extended release 24 hr RxNorm: 765766 Take 1 Tablet(s) Oral QD 05/05/20 21 024 Inactive hydralazine 50 mg tablet RxNorm: 515060 Take 1 Tablet(s) Oral QID 05/05/20 21 021 Inactive aspirin 81 mg tablet,delayed release RxNorm: 021934 Take 1 Tablet(s) Oral QD 03/31/20 21 022 Inactive Vitamin D2 1,250 mcg (50,000 unit) capsule RxNorm: 5322275 Take 1 Capsule(s) Oral QW once a week x 12 weeks 03/31/20 022 Inactive Vitamin D2 1,250 mcg (50,000 unit) capsule RxNorm: 8965630 Take 1 Capsule(s) Oral QW once a week 03/31/20 021 Inactive Zetia 10 mg tablet RxNorm: 112022 Take 1 Tablet(s) Oral QD 03/31/20 024 Inactive Zetia 10 mg tablet RxNorm: 415067 Take 1 Tablet(s) Oral QD 03/31/20 021 Inactive hydralazine 25 mg tablet RxNorm: 027788 Take 1 Tablet(s) Oral QID 03/31/20 021 Inactive hydralazine 25 mg tablet RxNorm: 906037 Take 1 Tablet(s) Oral QID 03/31/20 021 Inactive hydralazine 10 mg tablet RxNorm: 611081 Take 1 Tablet(s) Oral QID 03/03/20 021 Inactive cephalexin 500 mg tablet RxNorm: 151661 Take 1 Tablet(s) Oral QID 02/27/20 021 Inactive cephalexin 500 mg tablet RxNorm: 386305 Take 1 Tablet(s) Oral QID 02/27/20 021 Inactive lisinopril 40 mg tablet RxNorm: 901085 Take 1 Tablet(s) Oral QD 02/11/20 21 023 Inactive Eliquis 5 mg tablet RxNorm: 3320348 Take 1 Tablet(s) Oral BID 01/05/20 21 025 Inactive Eliquis 5 mg tablet RxNorm: 5027051 Take 2 Tablet(s) Oral QD 01/01/20 21 021 Inactive Lyrica 50 mg capsule RxNorm: 797470 Take 1 Capsule(s) Oral QAM every morning 12/24/19 21 021 Inactive Lyrica 100 mg capsule RxNorm: 681045 Take 1 Capsule(s) Oral QHS every night at bedtime 12/24/19 21 021 Inactive clotrimazole 1 % topical cream RxNorm: 809216 Apply to right foot and toes Topical BID 12/04/19 21 023 Inactive metoprolol succinate ER 200 mg tablet,extended release 24 hr RxNorm: 357785 Take 1 Tablet(s) Oral QD 12/04/19 21 023 Inactive ciprofloxacin 500 mg tablet RxNorm: 321656 Take 1 Tablet(s) Oral QD 11/30/19 21 021 Inactive DX ofloxacin otic drops Accu-Chek Guide test strips RxNorm: USE 1 TO CHECK GLUCOSE 4 TIMES DAILY AND NEEDED 11/15/19 21 023 Inactive Blood Glucose Test strips RxNorm: Use 1 Test Strip QID at PRN 11/05/19 21 023 Inactive E11.42 lisinopril 30 mg tablet RxNorm: 649095 Take 1 Tablet(s) Oral QD 10/30/19 021 Inactive lisinopril 20 mg tablet RxNorm: 401910 Take 1 Tablet(s) Oral QD 10/23/19 21 021 Inactive lisinopril 20 mg tablet RxNorm: 003660 Take 1 Tablet(s) Oral QD 10/23/19 21 021 Inactive lisinopril 10 mg tablet RxNorm: 445006 Take 1 Tablet(s) Oral QD 10/02/19 21 021 Inactive icosapent ethyl 1 gram capsule RxNorm: 1065114 Take 2 Capsule(s) (2 gm) Oral BID with meals 09/12/19 024 Inactive Okay to dispense one 2gm tab if you have that available. icosapent ethyl 1 gram capsule RxNorm: 2246956 Take 2 Capsule(s) Oral BID 09/12/19 21 021 Inactive Okay to dispense one 2gm tab if you have that available. amlodipine 10 mg tablet RxNorm: 129740 Take 1 Tablet(s) Oral QD 09/04/19 21 021 Inactive aspirin 81 mg tablet,delayed release RxNorm: 809311 Take 1 Tablet(s) Oral QD 09/04/19 21 021 Inactive Levemir FlexTouch U-100 Insulin 100 unit/mL (3 mL) subcutaneous pen RxNorm: 648384 Inject 150 Unit(s) Subcutaneous BID 09/04/19 21 022 Inactive venlafaxine ER 150 mg tablet,extended release 24 hr RxNorm: 909020 Take 1 Tablet(s) Oral QD 09/04/19 021 Inactive clotrimazole-betame thasone 1 %-0.05 % topical cream RxNorm: 853054 Apply to rash on red area on left abdomen/chest Topical BID 08/10/19 21 021 Inactive amlodipine 5 mg tablet RxNorm: 242477 Take 1 Tablet(s) Oral QD 07/31/19 21 Inactive cephalexin 500 mg tablet RxNorm: 624545 Take 1 Tablet(s) Oral BID BID - Twice Daily 07/31/19 21 Inactive Start 08/01/20 pantoprazole 40 mg tablet,delayed release RxNorm: 937996 Take 1 Tablet(s) Oral QAM every morning 07/08/19 025 Inactive clopidogrel 75 mg tablet RxNorm: 773391 Take 1 Tablet(s) Oral QD 07/08/19 021 Inactive Blood Glucose Test strips RxNorm: Use 1 Test Strip QID at PRN 07/08/19 21 Inactive E11.42 senna 8.6 mg tablet RxNorm: 876655 Take 1 Tablet(s) Oral QD 07/08/19 025 Inactive Novolog Flexpen U-100 Insulin aspart 100 unit/mL (3 mL) subcutaneous RxNorm: 0774770 Administer per sliding scale Milliliter(s) Subcutaneous TID 151-200: 10 u; 201-250: 20 u; 251-300: 30 u; 301-350: 40 u; 351-400: 50 u. 07/08/19 21 022 Inactive lisinopril 5 mg tablet RxNorm: 690996 Take 1 Tablet(s) Oral QD 07/08/19 021 Inactive Novolog Flexpen U-100 Insulin aspart 100 unit/mL (3 mL) subcutaneous RxNorm: 7170165 Inject 85 Unit(s) Subcutaneous TID 02/ 022 Inactive pravastatin 80 mg tablet RxNorm: 408341 Take 1 Tablet(s) Oral QHS every night at bedtime 07/08/19 023 Inactive clotrimazole 1 % topical cream RxNorm: 494755 Apply to bilateral groin areas Topical BID 07/08/19 022 Inactive metoprolol succinate ER 200 mg tablet,extended release 24 hr RxNorm: 304783 Take 1 Tablet(s) Oral QD 07/08/19 21 021 Inactive Vitamin D3 25 mcg (1,000 unit) tablet RxNorm: 696542 Take 1 Tablet(s) Oral QD 07/08/19 021 Inactive isosorbide dinitrate 30 mg tablet RxNorm: 883931 Take 1 Tablet(s) Oral QD 07/08/19 021 Inactive carbamazepine 200 mg tablet RxNorm: 693740 Take 1 Tablet(s) Oral BID 07/08/19 025 Inactive Levemir FlexTouch U-100 Insulin 100 unit/mL (3 mL) subcutaneous pen RxNorm: 868942 Inject 140 Unit(s) Subcutaneous BID 07/08/19 021 Inactive torsemide 20 mg tablet RxNorm: 199004 Take 1 Tablet(s) Oral QD 07/08/19 023 Inactive venlafaxine 75 mg tablet RxNorm: 191973 Take 1 Tablet(s) Oral QD 07/08/19 021 Inactive acetaminophen 500 mg tablet RxNorm: 496919 Take 1 Tablet(s) Oral TID as needed for headache 06/18/19 021 Inactive acetaminophen 500 mg tablet RxNorm: 014557 Take 1 Tablet(s) Oral TID as needed for headache 06/18/19 21 021 Inactive Lyrica 100 mg capsule RxNorm: 680050 Take 1 Capsule(s) Oral QHS every night at bedtime 06/11/19 21 021 Inactive Lyrica 50 mg capsule RxNorm: 499958 Take 1 Capsule(s) Oral QAM every morning 06/10/19 21 021 Inactive hydrocortisone 2.5 % topical cream RxNorm: 181223 Apply to bilateral groin creases Topical BID 05/15/20 20 021 Inactive clotrimazole 1 % topical cream RxNorm: 936491 Apply to bilateral groin areas Topical BID 05/15/20 20 021 Inactive Lyrica 50 mg capsule RxNorm: 362045 Take 1 Capsule(s) Oral QAM every morning 05/14/20 20 020 Inactive Lyrica 100 mg capsule RxNorm: 514274 Take 1 Capsule(s) Oral QHS every night [...] Inactive Nystop 100,000 unit/gram topical powder RxNorm: 540343 Apply to abd folds, under breasts and L side of groin Topical BID x 14 days, then BID PRN 04/08/20 20 020 Inactive dx: yeast dermatitis Lyrica 100 mg capsule RxNorm: 926994 Take 1 Capsule(s) Oral QHS every night at bedtime 03/13/20 20 020 Inactive Lyrica 50 mg capsule RxNorm: 185387 Take 1 Capsule(s) Oral QAM every morning 03/13/20 20 020 Inactive ketoconazole 2 % shampoo RxNorm: 707631 Apply Topical two times a week with showers 03/11/20 20 024 Inactive cholecalciferol (vitamin D3) 50 mcg (2,000 unit) tablet RxNorm: 327148 Take 1 Tablet(s) Oral QD 03/11/20 021 Inactive Zetia 10 mg tablet RxNorm: 624315 Take 1 Tablet(s) Oral QD 03/07/20 20 021 Inactive Zetia 10 mg tablet RxNorm: 224788 Take 1 Tablet(s) Oral QD 03/07/20 020 Inactive Lyrica 50 mg capsule RxNorm: 004354 Take 1 Capsule(s) Oral QAM every morning 02/15/20 20 020 Inactive Lyrica 100 mg capsule RxNorm: 722484 Take 1 Capsule(s) Oral QHS every night at bedtime 02/15/20 020 Inactive Lyrica 100 mg capsule RxNorm: 081655 Take 1 Capsule(s) Oral QHS every night at bedtime 02/15/20 020 Inactive Lyrica 50 mg capsule RxNorm: 325481 Take 1 Capsule(s) Oral QAM every morning 02/15/20 020 Inactive loperamide 2 mg capsule RxNorm: 310424 Take 1 Capsule(s) Oral QID as needed 09/06/19 25 025 Inactive venlafaxine ER 75 mg capsule,extended release 24 hr RxNorm: 658259 Take 3 Capsule(s) Oral QD 06/12/19 023 Inactive polyethylene glycol 3350 17 gram/dose oral powder RxNorm: 099661 Take 17=1 capful Gram(s) Oral BID as needed mix with 4-8oz of liquid 06/12/19 22 024 Inactive icosapent ethyl 1 gram capsule RxNorm: 7201586 Take 2 Capsule(s) (2 gm) Oral BID with meals 10/07/19 23 023 Inactive Okay to dispense one 2gm tab if you have that available. Levemir FlexTouch U-100 Insulin 100 unit/mL (3 mL) subcutaneous pen RxNorm: 837614 Inject 80 Unit(s) Subcutaneous BID 07/14/19 23 023 Inactive metoprolol succinate ER 200 mg tablet,extended release 24 hr RxNorm: 966512 Take 1 Tablet(s) Oral QD 08/12/19 23 025 Inactive hydralazine 50 mg tablet RxNorm: 438213 Take 1 Tablet(s) Oral QID 08/12/19 23 025 Inactive Soft Touch Lancets RxNorm: miscellaneous 03/04/20 24 025 Inactive Novolog Flexpen U-100 Insulin aspart 100 unit/mL (3 mL) subcutaneous RxNorm: 2513492 Insert 30 Unit(s) Subcutaneous TID with meals [...] Codes Status Date Referral: [facility] Radiology/Imaging WPtel: [address] [id number] [place] Referral Appointment Scheduled 10/20/2024 Patient Education: Patient Medication Summary Completed 07/27/2024 Appointment: Brian Munson WPtel: [address] [facility] 300 [id number] [place] F/U 07/11/2024 Referral: [facility]/Endocrinology WPtel: [address] [place], [address] [id number] [place] Referral No Records Received 07/10/2024 Appointment: Brian Munson WPtel: [address] [facility] 300 [id number] [place] AWV 02/08/2024 Appointment: Brian Munson WPtel: [address] [place], [place] [id number] [place] F/U 01/11/2024 Appointment: Sandra Clark WPtel: [phone] Telehealth Psych Follow Up 12/09 Appointment: Tapan Shirley WPtel: [phone] [place] TCM 10/26/2022 Referral: [facility] WPtel: [address], [address] [id number] [place] Referral Records Received 09/21/2022 Appointment: Tapan Shirley WPtel: [address] [facility] 300 [id number] [place] F/U 08/11/2022 Appointment: Tapan Shirley WPtel: [address] [facility] [address] [id number] [place] F/U 07/14/2022 Appointment: Tapan Shirley WPtel: [address] [facility] [address] [id number] [place] F/U 02/10/2022 Referral: [facility] WPtel: [address] [facility] [address] [id number] [place] Referral Completed 05/28/2021 Referral: General Cardiology [...] Sister Jyotsna involved in his care cell# [phone] Guardian: Giulia (tapan met in person 09/01/21), [...] 05.26.2024 with Jessa Webster MD at [facility]. Start Pioglitazone 15 mg QD. Stop Basaglar insulin. Increase Ozempic 2 mg once wkly. Continue Humalin R U-500 100 units with meals TID. FOLLOW UP 2 MONTHS. If BG >400 add 50 units to next scheduled dose of Humalin R U 500 insulin 06/12/2024
--- OUTSIDE RECORDS SUMMARY | 2024-10-19 19:50 | XMS_ITS | CCD ---
Author Name Cecilio Durham Address [address] [place] [address] Phone Organization [facility] Phone Care Team Providers [facility] [place] Interpretive Ranger Name Role Phone Harrison Durham Primary Care Provider Leona vailable Unavailable Chronic Care Management Unavaila ble Summary Purpose DataExchange Insurance Providers Payer name Policy type / Coverage type Covered constitution party ID Effective Begin Date Effective End Date Medicare [place] Medicare Part B [id number] Unknown Unknown [place] Medicare Part B [id number] Unknown Unknown Family history Sister Brittany Suggs [...] on file 07/11/[address]: 205260764 Never smoker 01/16 Sexually Active? Unknown No [...] Unknown [facility] 09/03/[address]: 087753293 No Alcohol Consum ption 09/02/2020 Allergies, Adverse Reactions, Alerts Substance Reaction Codes Entered Date Inactivated Date Status * NO KNOWN FOOD ALLERGIES Unknown 07/13/2023 No Inactive Date Active LISINOPRIL RxNorm: 17303 02/12/2020 No Inactive Da te Active Metformin [...] 703.8 10/10/2024 Active Pulmonary nodule SNOMED CT: 928131915 ICD-10: R91.1 ICD-9: 793.11 10/10/2024 Active Recurrent [...] 564.01 09/05/[address]24 [address] stools SNOMED CT: 660760482 ICD-10: R19.5 ICD-9: 787.7 09/05/2024 Active Body mass index [BMI] 60.0-69.9, adult SNOMED CT: 111555791 ICD-10: Z68.44 ICD-9: V85.44 08/08/2024 Active Mixed incontinence SNOMED CT: 08604732 ICD-10: N39.46 ICD-9: 788.33 08/08/2024 Active Diabetic [...] 701.9 09/07/2023 Resolved Coronary artery disease involving [place] coronary artery of [place] heart, angina [...] nursing (current) use of insulin ICD-10: Z79.4 02/10/2022 [...] chloride ER 20 mEq tablet,extended release RxNorm: 902640 Take 2 Tablet(s) Oral TID (dx: hypokalemia) 09/14/19 25 026 Active potassium chloride ER 20 mEq tablet,extended release RxNorm: 324989 Take 2 Tablet(s) Oral TID (dx: hypokalemia) 09/14/19 25 Inactive loperamide 2 mg tablet RxNorm: 637395 Take 2 Tablet(s) Oral UD as directed [...] Date Active senna 8.6 mg tablet RxNorm: 310316 Take 1 Tablet(s) Oral QD as needed and 1 tab BID prn 09/06/19 No Stop Date Active cyclobenzaprine 10 mg tablet RxNorm: 938877 Take 1 Tablet(s) Oral QHS every night at bedtime as needed 09/06/19 No Stop Date Active loperamide 2 mg tablet RxNorm: 293713 Take 2 Tablet(s) Oral UD as directed as needed 2 tabs after first loose stool then 1 tab after each subsequent stool PRN Do not exceed 4 doses in 24 hours. Do not administer until after 3 loose stools. 09/06/19 Active pioglitazone 15 mg tablet RxNorm: 102168 Take 1 Tablet(s) Oral QD 09/06/19 No Stop Date Active loperamide 2 mg tablet RxNorm: 444144 Take 2 Tablet(s) Oral UD as directed as needed 2 tabs after first loose stool then 1 tab after each subsequent stool PRN Do not exceed 4 doses in 24 hours. Do not administer until after 3 loose stools. 09/06/19 25 025 Inactive pregabalin 100 mg capsule RxNorm: 881053 1 CAPSULE BY MOUTH EVERY MORNING (DX: NEUROPATHY) 08/23/19 25 Active FACILITY IS REQUESTING REFILL. PRIOR RX HAS BEEN EXHAUSTED. THANK YOU. pregabalin 150 mg capsule RxNorm: 688501 1 CAPSULE BY MOUTH AT BEDTIME (DX: NEUROPATHY) 08/21/19 25 025 Active FACILITY IS REQUESTING A REFILL OF THIS MEDICATION, THANK YOU! senna 8.6 mg tablet RxNorm: 947124 Take 1 Tablet(s) Oral QD as needed for constipation on day 2 of no bowel movement 08/09/19 25 025 Inactive Miralax 17 gram/dose oral powder RxNorm: 884470 Administer 17 Gram(s) Oral QD as needed for constipation on day 3 of no bowel movement 08/09/19 025 Inactive senna 8.6 mg tablet RxNorm: 280654 Take 1 Tablet(s) Oral QD as needed for constipation on day 2 of no bowel movement 08/09/19 025 Inactive Miralax 17 gram/dose oral powder RxNorm: 171698 Administer 17 Gram(s) Oral QD as needed for constipation on day 3 of no bowel movement 08/09/19 025 Inactive pregabalin 100 mg capsule RxNorm: 581211 Take 1 Capsule(s) Oral QAM every morning [...] (Concentrated) Insulin 500 unit/mL subcutaneous soln RxNorm: 820237 Inject 100 Unit(s) Subcutaneous AC before meals Three times daily before meals. 07/24/19 25 025 Inactive ammonium lactate 12 % topical cream RxNorm: 665874 Apply 1 Application Topical BID 07/20/19 No Stop Date Active ezetimibe 10 mg tablet RxNorm: 654838 Take 1 Tablet(s) Oral QD 07/18/19 No Stop Date Active senna 8.6 mg tablet RxNorm: 488725 Take 1 Tablet(s) Oral QD 07/18/19 25 025 Inactive metoprolol succinate ER 200 mg tablet,extended release 24 hr RxNorm: 054557 Take 1 Tablet(s) Oral QD 02/03/20 25 No Stop Date Active pantoprazole 40 mg tablet,delayed release RxNorm: 063734 Take 1 Tablet(s) Oral QAM every morning 06/19/19 25 No Stop Date Active hydralazine 50 mg tablet RxNorm: 352197 Take 1 Tablet(s) Oral QID 06/19/19 25 No Stop Date Active carbamazepine 200 mg tablet RxNorm: 926159 Take 1 Tablet(s) Oral BID 06/19/19 25 No Stop Date Active amlodipine 10 mg tablet RxNorm: 927014 Take 1 Tablet(s) Oral QD 06/19/19 25 No Stop Date Active Eliquis 5 mg tablet RxNorm: 4323228 Take 1 Tablet(s) Oral BID 06/19/19 25 No Stop Date Active pen needle, diabetic 30 gauge x 3/16 RxNorm: Use 1 6 times per day w/insulin 06/14/19 25 026 Active pen needle, diabetic 30 gauge x 3/16 RxNorm: Use 1 needle 6 times per day w/insulin 06/14/19 25 025 Inactive nystatin 100,000 unit/gram topical powder RxNorm: 182525 Apply 1 Application Topical BID as needed abdominal/breast /groin folds 05/24/19 25 026 Active pregabalin 100 mg capsule RxNorm: 176907 Take 1 Capsule(s) Oral QAM every morning 05/22/19 25 025 Inactive nystatin 100,000 unit/gram topical powder RxNorm: 758358 Apply 1 Application Topical BID as needed abdominal/breast /groin folds 04/11/20 24 024 Inactive chlorthalidone 25 mg tablet RxNorm: 925739 Take 1 Tablet(s) Oral QAM every morning 04/06/20 24 No Stop Date Active pregabalin 150 mg capsule RxNorm: 355372 Take 1 Capsule(s) Oral QHS every night at bedtime 03/31/20 24 024 Inactive Vascepa 1 gram capsule RxNorm: 6008644 Take 2 Capsule(s) Oral BID 03/30/20 24 025 Active rosuvastatin 40 mg tablet RxNorm: 342311 1 TAB ORALLY EVERY EVENING (DX:CORONARY ARTERY DISEASE) 03/28/20 24 No Stop Date Active venlafaxine ER 75 mg capsule,extended release 24 hr RxNorm: 391889 3 CAPS (225MG) ORALLY DAILY (DX: MOOD DISORDER) 03/28/20 No Stop Date Active pregabalin 100 mg capsule RxNorm: 057148 Take 1 Capsule(s) Oral QAM every morning 03/20/20 Inactive cholecalciferol (vitamin D3) 1,250 mcg (50,000 unit) capsule RxNorm: 771539 Take 1 Capsule(s) Oral QW once a [...] Insulin 100 unit/mL (3 mL) subcutaneous RxNorm: 5640896 Inject 40 Unit(s) Subcutaneous BID 03/07/20 025 Inactive Please dispense one month supply. Humulin R U-500 (Concentrated) Insulin 500 unit/mL subcutaneous soln RxNorm: 502389 Inject 100 Unit(s) Subcutaneous AC before meals [...] PRN) to be use with new Accu [place]oy meter 03/04/20 Inactive ok to substitute with any covered alternative test strip FreeStyle Chema 2 Sensor kit RxNorm: Use UD as directed 03/02/20 Inactive Pen Needle 30 gauge x 5/16 RxNorm: Pen(s) Use 1 needle as directed TID 03/02/20 Inactive nystatin 100,000 unit/gram topical powder RxNorm: 089002 Apply 1 Application Topical BID as needed [...] (Concentrated) Insulin 500 unit/mL subcutaneous soln RxNorm: 782865 Inject 100 Unit(s) Subcutaneous TID 02/17/20 24 024 Inactive Humulin R U-500 (Concentrated) Insulin 500 unit/mL subcutaneous soln RxNorm: 208732 Inject 100 Unit(s) Subcutaneous TID 02/10/20 24 024 Inactive Basaglar KwikPen U-100 Insulin 100 unit/mL (3 mL) subcutaneous RxNorm: 7505966 Inject 30 Unit(s) Subcutaneous BID 02/10/20 24 024 Inactive Please dispense one month supply. pregabalin 100 mg capsule RxNorm: 420158 Take 1 Capsule(s) Oral QAM every morning 02/07/20 24 024 Inactive isosorbide mononitrate ER 60 mg tablet,extended release 24 hr RxNorm: 320815 Take 1 Tablet(s) Oral QD 02/01/20 24 025 Active aripiprazole 15 mg tablet RxNorm: 845772 Take 1/2 Tablet(s) Oral QD 02/01/20 24 025 Active torsemide 20 mg tablet RxNorm: 282598 1 TAB ORALLY DAILY (DX: EDEMA) 01/27/20 No Stop Date Active potassium chloride ER 20 mEq tablet,extended release(part/cryst) RxNorm: 8644116 2 TABS (40MEQ) ORALLY TWICE DAILY (DX: HYPOKALEMIA) 01/27/20 24 025 Inactive cephalexin 500 mg capsule RxNorm: 471487 Take 1 Capsule(s) Oral QID 12/17/19 24 024 Inactive cephalexin 500 mg capsule RxNorm: 090370 Take 1 Capsule(s) Oral QID 12/17/19 24 024 Inactive acetaminophen 500 mg tablet RxNorm: 611280 (MAX APAP:4GM/24HR) Take 1 Tablet(s) Oral TID as needed for pain 12/10/19 24 024 Inactive torsemide 20 mg tablet RxNorm: 841313 Take 1 Tablet(s) Oral QD 10/26/19 24 024 Inactive potassium chloride ER 20 mEq tablet,extended release RxNorm: 548163 Take 2 Tablet(s) Oral BID 10/26/19 24 024 Inactive torsemide 20 mg tablet RxNorm: 843476 Take 1 Tablet(s) Oral QD 10/26/19 24 Inactive potassium chloride ER 20 mEq tablet,extended release RxNorm: 369207 Take 2 Tablet(s) Oral BID 10/26/19 24 Inactive Artificial Tears (PF) 0.1 %-0.3 % drops in a dropperette RxNorm: 797126 Apply 1-2 Drop(s) Both eyes BID as needed 09/28/19 24 025 Inactive erythromycin 5 mg/gram (0.5 %) eye ointment RxNorm: 931049 Apply 1 Application Both eyes QHS every night at bedtime Instill ~1 cm ribbon into affected eye 09/28/19 24 024 Inactive Artificial Tears (PF) 0.1 %-0.3 % drops in a dropperette RxNorm: 325519 Apply 1-2 Drop(s) Both eyes BID as needed 09/28/19 24 Inactive erythromycin 5 mg/gram (0.5 %) eye ointment RxNorm: 768370 Apply 1 Application Both eyes QHS every night at bedtime Instill ~1 cm ribbon into affected eye 09/28/19 24 Inactive acetaminophen 500 mg tablet RxNorm: 160602 (MAX APAP:4GM/24HR) Take 1 Tablet(s) Oral TID as needed for pain 09/24/19 24 Inactive carvedilol 25 mg tablet RxNorm: 621704 Take 1 Tablet(s) Oral QD 09/08/19 24 No Stop Date Active pregabalin 100 mg capsule RxNorm: 443698 Take 1 Capsule(s) Oral QAM every morning 09/07/19 24 024 Inactive bisacodyl 10 mg rectal suppository RxNorm: 575430 Insert 1 Suppository Rectal QD as needed 07/13/19 24 No Stop Date Active ketoconazole 2 % shampoo RxNorm: 996783 Apply 1 Application Topical UD as directed 07/13/19 24 No Stop Date Active Ozempic 1 mg/dose (4 mg/3 mL) subcutaneous pen injector RxNorm: 6718788 Inject 1 Milligram(s) Subcutaneous QW once a week 07/13/19 24 No Stop Date Active Guaifenesin AC 10 mg-100 mg/5 mL oral liquid RxNorm: 071024 Take 10 Milliliter(s) Oral Q4H every four hours as needed 07/13/19 24 No Stop Date Active hydrocortisone 2.5 % topical cream RxNorm: 341378 Apply 1 Application Topical BID as needed 07/13/19 24 No Stop Date Active rosuvastatin 40 mg tablet RxNorm: 104011 Take 1 Tablet(s) Oral QPM every evening 07/13/19 24 024 Inactive ezetimibe 10 mg tablet RxNorm: 703226 Take 1 Tablet(s) Oral QD 07/13/19 24 025 Inactive polyethylene glycol 3350 17 gram/dose oral powder RxNorm: 630088 Take 17 Gram(s) Oral BID as needed mix in 4-8ox water 07/13/19 24 025 Inactive aripiprazole 15 mg tablet RxNorm: 207273 Take 1/2 Tablet(s) Oral QD 07/13/19 24 024 Inactive isosorbide mononitrate ER 60 mg tablet,extended release 24 hr RxNorm: 250170 Take 1 Tablet(s) Oral QD 07/13/19 24 024 Inactive ammonium lactate 12 % topical cream RxNorm: 449477 Apply 1 Application Topical BID 07/13/19 24 025 Inactive rosuvastatin 20 mg sprinkle capsule RxNorm: 6602005 Take 1 Capsule(s) Oral QD 07/13/19 24 025 Inactive Vascepa 1 gram capsule RxNorm: 9086369 Take 2 Capsule(s) Oral BID 07/13/19 24 024 Inactive venlafaxine ER 75 mg capsule,extended release 24 hr RxNorm: 108092 Take 3 Capsule(s) Oral QD 07/13/19 24 024 Inactive Basaglar KwikPen U-100 Insulin 100 unit/mL (3 mL) subcutaneous RxNorm: 0122372 Inject 30U SubQ twice daily 07/07/19 24 024 Inactive Please dispense one month supply. Basaglar KwikPen U-100 Insulin 100 unit/mL (3 mL) subcutaneous RxNorm: 7265250 Inject 30U SubQ twice daily 07/07/19 24 024 Inactive Please dispense one month supply. pregabalin 150 mg capsule RxNorm: 951231 Take 1 Capsule(s) Oral QHS every night at bedtime 07/05/19 24 024 Inactive pregabalin 150 mg capsule RxNorm: 250765 Take 1 Capsule(s) Oral QHS every night at bedtime 07/05/19 24 024 Inactive polyethylene glycol 3350 17 gram/dose oral powder RxNorm: 776469 Take 1 Packet Oral QD as needed (1 packet = 17g) mix with 4-8oz of liquid 06/15/19 024 Inactive bisacodyl 10 mg rectal suppository RxNorm: 171016 Insert one suppository per rectum once daily as needed for constipation 06/15/19 024 Inactive bisacodyl 10 mg rectal suppository RxNorm: 744587 Insert one suppository per rectum once daily as needed for constipation 06/15/19 024 Inactive pregabalin 100 mg capsule RxNorm: 693437 Take 1 Capsule(s) Oral QAM every morning 04/27/20 024 Inactive Levemir FlexPen 100 unit/mL (3 mL) solution subcutaneous insulin pen RxNorm: 328878 Inject 30 Unit(s) Subcutaneous BID 04/27/20 024 Inactive rosuvastatin 40 mg tablet RxNorm: 641321 Take 1 Tablet(s) Oral QPM every evening 04/16/20 024 Inactive D/C rosuvastatin 20mg venlafaxine ER 75 mg capsule,extended release 24 hr RxNorm: 807051 Take 3 Capsule(s) Oral QD 04/14/20 023 Inactive pregabalin 100 mg capsule RxNorm: 899124 Take 1 Capsule(s) Oral QAM every morning [...] strip clotrimazole 1 % topical cream RxNorm: 235755 Take apply topically to abdominal folds twice daily for 14 days 03/12/20 024 Inactive Ozempic 1 mg/dose (4 mg/3 mL) subcutaneous pen injector RxNorm: 2671165 Inject 1 Milligram(s) Subcutaneous QW once a week 03/11/20 23 023 Inactive rosuvastatin 20 mg tablet RxNorm: 360365 Take 1 Tablet(s) Oral QD 02/26/20 23 023 Inactive d/c pravastatin 80mg Ozempic 1 mg/dose (4 mg/3 mL) subcutaneous pen injector RxNorm: 9048089 Inject 1 Milligram(s) Subcutaneous QW once a week 02/20/20 23 023 Inactive pregabalin 150 mg capsule RxNorm: 728075 Take 1 Capsule(s) Oral HS at bed time 02/19/20 23 023 Inactive pregabalin 100 mg capsule RxNorm: 351874 Take 1 Capsule(s) Oral QAM every morning 02/18/20 023 Inactive venlafaxine ER 75 mg capsule,extended release 24 hr RxNorm: 760223 Take 3 Capsule(s) Oral QD 02/04/20 23 023 Inactive FreeStyle Chema 2 Sensor kit RxNorm: use as directed 02/04/20 23 023 Inactive FreeStyle Chema 2 Sensor kit RxNorm: use as directed 02/04/20 23 024 Inactive fluconazole 150 mg tablet RxNorm: 224950 Take 1 Tablet(s) Oral on day 3 and on day 6 02/03/20 024 Inactive venlafaxine ER 150 mg capsule,extended release 24 hr RxNorm: 860197 Take 1 Capsule(s) Oral QD 02/03/20 023 Inactive chlorthalidone 25 mg tablet RxNorm: 427390 Take 1 Tablet(s) Oral QAM every morning 02/03/20 23 024 Inactive acetaminophen 500 mg tablet RxNorm: 149244 1 TABLET ORALLY 3 TIMES DAILY (MAX APAP:4GM/24HR) 12/15/19 23 023 Inactive potassium chloride ER 20 mEq tablet,extended release RxNorm: 382850 Take 1 Tablet(s) Oral BID 12/09/19 23 024 Inactive d/c 20mEq once daily (sent from hospital) clotrimazole 1 % topical cream RxNorm: 751655 apply 1g topically to top of feet and in between toes BID 12/09/19 23 025 Inactive nystatin 100,000 unit/gram topical powder RxNorm: 285864 APPLY TO AFFECTED AREAS TOPICALLY 2 TIMES DAILY 11/21/19 23 023 Inactive Nystop 100,000 unit/gram topical powder RxNorm: 989396 Apply to abd folds, under breasts and L side of groin Topical BID x 14 days, then BID PRN 11/20/19 023 Inactive dx: yeast dermatitis [place] Ultra Strength 4 %-30 %-10 % topical cream RxNorm: 580351 Apply 1 Gram(s) Topical QID PRN to feet and legs for neuropathic pain 11/11/19 024 Inactive clotrimazole 1 % topical cream RxNorm: 311243 Apply 1/2 Gram(s) Topical BID Apply to affected areas of groin, periarea, and abdominal topically 2 times daily 11/10/19 023 Inactive hydrocortisone 2.5 % topical cream RxNorm: 126437 Apply 1/2 Gram(s) Topical BID as needed 11/10/19 024 Inactive Levemir FlexPen 100 unit/mL (3 mL) solution subcutaneous insulin pen RxNorm: 346776 Inject 30 Unit(s) Subcutaneous BID 10/07/19 023 Inactive Humulin R U-500 (Concentrated) Insulin 500 unit/mL subcutaneous soln RxNorm: 403944 Inject 100 Unit(s) Subcutaneous TID 10/07/19 024 Inactive Ozempic 0.25 mg or 0.5 mg (2 mg/3 mL) subcutaneous pen injector RxNorm: 2679926 Inject 1/2 Milligram(s) Subcutaneous QW once a week 10/07/19 024 Inactive aripiprazole 15 mg tablet RxNorm: 882198 1/2 TAB (7.5MG) ORALLY DAILY (DX:MAJOR DEPRESSIVE DISORDER) 09/23/19 23 023 Inactive Accu-Chek Guide test strips RxNorm: Use 1 Test Strip QID 09/15/19 23 023 Inactive ok to substitute with any covered alternative test strip Lancets,Thin 28 gauge RxNorm: Use 1 as directed QID 09/15/19 23 023 Inactive torsemide 20 mg tablet RxNorm: 421255 Take 1 Tablet(s) Oral BID 09/09/19 23 024 Inactive d/c once daily dosing carvedilol 25 mg tablet RxNorm: 983791 Take 1 Tablet(s) Oral QD 08/25/19 23 024 Inactive pregabalin 150 mg capsule RxNorm: 352241 1 Capsule(s) Oral HS at bed time 08/18/19 23 023 Inactive pregabalin 100 mg capsule RxNorm: 464851 1 Capsule(s) Oral QAM every morning 08/18/19 23 023 Inactive carvedilol 25 mg tablet RxNorm: 333355 1 Tablet(s) Oral QD 07/28/19 23 023 Inactive lisinopril 20 mg tablet RxNorm: 614828 Give 1 Tablet(s) Oral QD 07/28/19 23 023 Inactive Lyrica 150 mg capsule RxNorm: 362119 Take 1 Capsule(s) Oral QHS every night at bedtime 07/19/19 23 023 Inactive d/c 100mg dose Diflucan 150 mg tablet RxNorm: 278769 Take 1 Tablet(s) Oral QD repeat on day 3 and 6 07/19/19 23 023 Inactive pregabalin 100 mg capsule RxNorm: 347044 Take 1 Capsule(s) Oral QAM every morning 07/19/19 23 023 Inactive gatifloxacin 0.5 % eye drops RxNorm: 982986 Instill 1 Drop(s) as directed TID Instill 1 drop in to affected eye(s) starting 1 day prior to surgery and continue until gone (do not exceed 4 weeks). 07/13/19 23 023 Inactive carvedilol 25 mg tablet RxNorm: 664707 2 Tablet(s) Oral BID 07/13/19 23 023 Inactive Humulin R Regular U-100 Insulin 100 unit/mL injection solution RxNorm: 385692 85 Unit(s) Injection TID 07/13/19 23 023 Inactive ketorolac 0.5 % eye drops RxNorm: 161387 Instill 1 Drop(s) as directed QID Instill 1 drop into affected eye(s) 4 times daily starting 1 day prior to surgery and continue until gone (do not exceed 4 weeks). 07/13/19 23 023 Inactive Diflucan 150 mg tablet RxNorm: 726448 Take 1 Tablet(s) Oral QD repeat on day 3 and 6 06/30/19 23 023 Inactive Accu-Chek Guide test strips RxNorm: Use 1 Test Strip QID Use 1 test strip to monitor blood glucose 4 times daily and as needed. Dx:E11.42. 06/23/19 023 Inactive ok to substitute with any covered alternative test strip dextromethorphan-gu aifenesin 10 mg-100 mg/5 mL oral liquid RxNorm: 826883 Take 10 Milliliter(s) Oral every 4 hours as needed for cough 06/19/19 023 Inactive dextromethorphan-gu aifenesin 10 mg-100 mg/5 mL oral liquid RxNorm: 100096 Take 10 Milliliter(s) Oral every 4 hours as needed for cough 06/19/19 023 Inactive Lyrica 150 mg capsule RxNorm: 258818 Take 1 Capsule(s) Oral QHS every night at bedtime 06/18/19 23 023 Inactive d/c 100mg dose aripiprazole 15 mg tablet RxNorm: 376955 /2 TAB (7.5MG) ORALLY DAILY (DX:MAJOR DEPRESSIVE DISORDER) 06/05/19 23 023 Inactive pregabalin 100 mg capsule RxNorm: 628771 1 Capsule(s) Oral QAM every morning 06/02/19 23 023 Inactive Banophen 50 mg capsule RxNorm: 0088987 Take 1 Capsule(s) Oral Q6H every 6 hours as needed 05/19/19 23 No Stop Date Active Novolog Flexpen U-100 Insulin aspart 100 unit/mL (3 mL) subcutaneous RxNorm: 2334620 Inject 10 Unit(s) Subcutaneous QHS every night at bedtime with nighttime snack 11/23/20 22 12/22/2 022 Inactive Novolog Flexpen U-100 Insulin aspart 100 unit/mL (3 mL) subcutaneous RxNorm: 2304964 Inject 42 Unit(s) Subcutaneous TID in addition to sliding scale 04/08/20 022 Inactive d/c 36u albuterol sulfate HFA 90 mcg/actuation aerosol inhaler RxNorm: 6524519 Take 2 Puff(s) Inhalation Q4H every four hours as needed as needed for SOB, cough, or wheezing 04/07/20 030 Active Banophen 50 mg capsule RxNorm: 7523538 Take 1 Capsule(s) Oral Q6H every 6 hours as needed 04/06/20 023 Inactive diphenhydramine 50 mg tablet RxNorm: 2468336 Take 1 Tablet(s) Oral Q6H every 6 hours as needed 04/06/20 022 Inactive diphenhydramine 50 mg tablet RxNorm: 8449849 1 Tablet(s) Oral Q6H every 6 hours as needed 04/06/20 022 Inactive Abilify 15 mg tablet RxNorm: 908713 1/2 Tablet(s) Oral QD 03/10/20 023 Inactive Shingrix (PF) 50 mcg/0.5 mL intramuscular suspension, kit RxNorm: 1739819 Administer 1/2 Milliliter(s) Intramuscular QD one time shingrix step 2 ( step 1 given 11/04/21) WITH needle - Nursing please administer upon arrival and once administered 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, 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, 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, 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 lot# so we can update [facility] 02/18/20 22 022 Inactive dispense with needle Shingrix (PF) 50 mcg/0.5 mL intramuscular suspension, kit RxNorm: 4454838 Administer 1/2 Milliliter(s) Intramuscular QD one time shingrix step 2 ( step 1 given 11/04/21) WITH needle - Nursing please administer upon arrival and once administered 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, 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, 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, 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# so we can update [facility] 02/18/20 22 022 Inactive dispense with needle Lyrica 100 mg capsule RxNorm: 647565 Take 1 Capsule(s) Oral QAM every morning 01/08/20 22 022 Inactive d/c 50mg dose acetaminophen 500 mg tablet RxNorm: 376219 Take 1 Tablet(s) Oral TID 01/08/20 22 022 Inactive d/c PRN order Lyrica 150 mg capsule RxNorm: 111461 Take 1 Capsule(s) Oral QHS every night at bedtime 01/08/20 22 023 Inactive d/c 100mg dose polyethylene glycol 3350 17 gram/dose oral powder RxNorm: 087492 Take 17=1 capful Gram(s) Oral QD mix with 4-8oz of liquid 01/08/20 22 025 Inactive take this in addition to BID prn order Abilify 5 mg tablet RxNorm: 371596 Take 1 Tablet(s) Oral QD take 1 tab po QD #30 refill 5 dx: MDD 12/12/19 22 022 Inactive Abilify 5 mg tablet RxNorm: 958255 Take 1 Tablet(s) Oral QD take 1 tab po QD #30 refill 5 dx: MDD 12/12/19 22 022 Inactive Novolog Flexpen U-100 Insulin aspart 100 unit/mL (3 mL) subcutaneous RxNorm: 4826764 Inject 42 Unit(s) Subcutaneous TID in addition to sliding scale 12/10/19 22 022 Inactive d/c 36u chlorthalidone 25 mg tablet RxNorm: 748613 Take 1 Tablet(s) Oral QAM every morning 12/10/19 22 023 Inactive pregabalin 50 mg capsule RxNorm: 908683 Take 1 Capsule(s) Oral QAM every morning 11/12/19 22 022 Inactive tetanus-diphtheria toxoids-Td 2 Lf unit-2 Lf unit/0.5 mL IM suspension RxNorm: 139 Take 0.5 Miscellaneous Intramuscular 11/12/19 22 022 Inactive need tdap - nursing to administer upon arrival pregabalin 50 mg capsule RxNorm: 538704 Take 1 Capsule(s) Oral QAM every morning 10/16/19 22 022 Inactive pregabalin 50 mg capsule RxNorm: 159614 Take 1 Capsule(s) Oral QAM every morning 10/16/19 22 022 Inactive pregabalin 50 mg capsule RxNorm: 110535 1 Capsule(s) Oral QAM every morning 10/15/19 22 022 Inactive Shingrix (PF) 50 mcg/0.5 mL intramuscular suspension, kit RxNorm: 1158597 Administer 1/2 Milliliter(s) Intramuscular one time Nursing please administer upon arrival and once administered 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, and lot# so we can [...] aspart 100 unit/mL (3 mL) subcutaneous RxNorm: 0961271 Inject 10 Unit(s) Subcutaneous QHS every night at bedtime with nighttime snack 10/08/19 22 Inactive Shingrix (PF) 50 mcg/0.5 mL intramuscular suspension, kit RxNorm: 1326933 ADMINISTER 2-DOSE SERIES PER CDC GUIDELINES 10/08/19 22 022 Active Shingrix (PF) 50 mcg/0.5 mL intramuscular suspension, kit RxNorm: 9891615 ADMINISTER 2-DOSE SERIES PER CDC GUIDELINES 10/08/19 22 Inactive Novolog Flexpen U-100 Insulin aspart 100 unit/mL (3 mL) subcutaneous RxNorm: 0806152 Inject 36 Unit(s) Subcutaneous TID in addition to sliding scale 10/08/19 22 Inactive cholecalciferol (vitamin D3) 1,250 mcg (50,000 unit) capsule RxNorm: 120507 Take 1 Capsule(s) Oral QW once a week 10/08/19 Inactive Novofine Autocover 30 gauge x 1/3 needle RxNorm: Use 1 Miscellaneous UD as directed Use 1 needle as directed to administer insulin 5 times a day Dx:E11.42. 10/03/19 Inactive ok to substitute with any covered alternative pen needle benzoyl peroxide 10 % topical cleanser RxNorm: 839551 Apply 1 Application Topical QD apply to face, wash rinse and dry once daily (may change to QOD if drying) 08/19/19 022 Inactive (%covered by insurance) #60ml refill 11 dx: acne benzoyl peroxide 10 % topical cleanser RxNorm: 155816 Apply 1 Application Topical QD apply to face, wash rinse and dry once daily (may change to QOD if drying) 08/19/19 22 022 Inactive (%covered by insurance) #60ml refill 11 dx: acne benzoyl peroxide 10 % topical cleanser RxNorm: 977913 Apply 1 Application Topical QD apply to face, wash rinse and dry once daily (may change to QOD if drying) 08/19/19 22 022 Inactive (%covered by insurance) #60ml refill 11 dx: acne Lyrica 50 mg capsule RxNorm: 282679 Take 1 Capsule(s) Oral QAM every morning Take 1 capsule by mouth once daily 08/19/19 22 022 Inactive benzoyl peroxide 10 % topical cleanser RxNorm: 325502 Apply 1 Application Topical QD apply to face, wash rinse and dry once daily (may change to QOD if drying) 08/19/19 22 022 Inactive (%covered by insurance) #60ml refill 11 dx: acne Lyrica 100 mg capsule RxNorm: 475153 Take 1 Capsule(s) Oral QHS every night at bedtime Take 1 capsule by mouth once daily at bedtime 08/19/19 22 022 Inactive Lyrica 100 mg capsule RxNorm: 772009 Take 1 Capsule(s) Oral QHS every night at bedtime Take 1 capsule by mouth once daily at bedtime 08/16/19 22 022 Inactive Lyrica 50 mg capsule RxNorm: 445031 Take 1 Capsule(s) Oral QAM every morning Take 1 capsule by mouth once daily 08/16/19 22 022 Inactive Levemir FlexTouch U-100 Insulin 100 unit/mL (3 mL) subcutaneous pen RxNorm: 231718 Inject 86 Unit(s) Subcutaneous BID 08/05/19 22 022 Inactive d/c 83units BID Lyrica 100 mg capsule RxNorm: 154205 Take 1 Capsule(s) Oral QHS every night at bedtime Take 1 capsule by mouth once daily at bedtime 07/14/19 22 022 Inactive Lyrica 50 mg capsule RxNorm: 776751 Take 1 Capsule(s) Oral QAM every morning Take 1 capsule by mouth once daily 07/14/19 22 022 Inactive Levemir FlexTouch U-100 Insulin 100 unit/mL (3 mL) subcutaneous pen RxNorm: 027412 Inject 83 Unit(s) Subcutaneous BID 07/08/19 22 [...] test strip hydralazine 50 mg tablet RxNorm: 004155 Take 1 Tablet(s) Oral QID 05/05/20 21 022 Inactive venlafaxine ER 225 mg tablet,extended release 24 hr RxNorm: 652414 Take 1 Tablet(s) Oral QD 05/05/20 21 021 Inactive venlafaxine ER 225 mg tablet,extended release 24 hr RxNorm: 494622 Take 1 Tablet(s) Oral QD 05/05/20 21 022 Inactive isosorbide mononitrate ER 30 mg tablet,extended release 24 hr RxNorm: 872480 Take 1 Tablet(s) Oral QD 05/05/20 21 024 Inactive hydralazine 50 mg tablet RxNorm: 805279 Take 1 Tablet(s) Oral QID 05/05/20 21 021 Inactive aspirin 81 mg tablet,delayed release RxNorm: 403643 Take 1 Tablet(s) Oral QD 03/31/20 21 022 Inactive Vitamin D2 1,250 mcg (50,000 unit) capsule RxNorm: 8423314 Take 1 Capsule(s) Oral QW once a week x 12 weeks 03/31/20 022 Inactive Vitamin D2 1,250 mcg (50,000 unit) capsule RxNorm: 2743231 Take 1 Capsule(s) Oral QW once a week 03/31/20 021 Inactive Zetia 10 mg tablet RxNorm: 591099 Take 1 Tablet(s) Oral QD 03/31/20 024 Inactive Zetia 10 mg tablet RxNorm: 248986 Take 1 Tablet(s) Oral QD 03/31/20 021 Inactive hydralazine 25 mg tablet RxNorm: 311892 Take 1 Tablet(s) Oral QID 03/31/20 021 Inactive hydralazine 25 mg tablet RxNorm: 420677 Take 1 Tablet(s) Oral QID 03/31/20 021 Inactive hydralazine 10 mg tablet RxNorm: 984236 Take 1 Tablet(s) Oral QID 03/03/20 021 Inactive cephalexin 500 mg tablet RxNorm: 311771 Take 1 Tablet(s) Oral QID 02/27/20 021 Inactive cephalexin 500 mg tablet RxNorm: 581997 Take 1 Tablet(s) Oral QID 02/27/20 021 Inactive lisinopril 40 mg tablet RxNorm: 374202 Take 1 Tablet(s) Oral QD 02/11/20 21 023 Inactive Eliquis 5 mg tablet RxNorm: 0450126 Take 1 Tablet(s) Oral BID 01/05/20 21 025 Inactive Eliquis 5 mg tablet RxNorm: 3052719 Take 2 Tablet(s) Oral QD 01/01/20 21 021 Inactive Lyrica 50 mg capsule RxNorm: 531211 Take 1 Capsule(s) Oral QAM every morning 12/24/19 21 021 Inactive Lyrica 100 mg capsule RxNorm: 172731 Take 1 Capsule(s) Oral QHS every night at bedtime 12/24/19 21 021 Inactive clotrimazole 1 % topical cream RxNorm: 084044 Apply to right foot and toes Topical BID 12/04/19 21 023 Inactive metoprolol succinate ER 200 mg tablet,extended release 24 hr RxNorm: 307990 Take 1 Tablet(s) Oral QD 12/04/19 21 023 Inactive ciprofloxacin 500 mg tablet RxNorm: 759415 Take 1 Tablet(s) Oral QD 11/30/19 21 021 Inactive DX ofloxacin otic drops Accu-Chek Guide test strips RxNorm: USE 1 TO CHECK GLUCOSE 4 TIMES DAILY AND NEEDED 11/15/19 21 023 Inactive Blood Glucose Test strips RxNorm: Use 1 Test Strip QID at PRN 11/05/19 21 023 Inactive E11.42 lisinopril 30 mg tablet RxNorm: 524173 Take 1 Tablet(s) Oral QD 10/30/19 21 021 Inactive lisinopril 20 mg tablet RxNorm: 940374 Take 1 Tablet(s) Oral QD 10/23/19 21 021 Inactive lisinopril 20 mg tablet RxNorm: 614645 Take 1 Tablet(s) Oral QD 10/23/19 21 021 Inactive lisinopril 10 mg tablet RxNorm: 712941 Take 1 Tablet(s) Oral QD 10/02/19 21 021 Inactive icosapent ethyl 1 gram capsule RxNorm: 1644520 Take 2 Capsule(s) (2 gm) Oral BID with meals 09/12/19 024 Inactive Okay to dispense one 2gm tab if you have that available. icosapent ethyl 1 gram capsule RxNorm: 6422581 Take 2 Capsule(s) Oral BID 09/12/19 21 021 Inactive Okay to dispense one 2gm tab if you have that available. amlodipine 10 mg tablet RxNorm: 042898 Take 1 Tablet(s) Oral QD 09/04/19 21 021 Inactive aspirin 81 mg tablet,delayed release RxNorm: 569216 Take 1 Tablet(s) Oral QD 09/04/19 21 021 Inactive Levemir FlexTouch U-100 Insulin 100 unit/mL (3 mL) subcutaneous pen RxNorm: 157083 Inject 150 Unit(s) Subcutaneous BID 04 022 Inactive venlafaxine ER 150 mg tablet,extended release 24 hr RxNorm: 998220 Take 1 Tablet(s) Oral QD 09/04/19 Inactive clotrimazole-betame thasone 1 %-0.05 % topical cream RxNorm: 845756 Apply to rash on red area on left abdomen/chest Topical BID 08/10/19 21 Inactive amlodipine 5 mg tablet RxNorm: 114707 Take 1 Tablet(s) Oral QD 07/31/19 Inactive cephalexin 500 mg tablet RxNorm: 335259 Take 1 Tablet(s) Oral BID BID - Twice Daily 07/31/19 Inactive Start 08/01/20 pantoprazole 40 mg tablet,delayed release RxNorm: 819823 Take 1 Tablet(s) Oral QAM every morning 07/08/19 Inactive clopidogrel 75 mg tablet RxNorm: 524343 Take 1 Tablet(s) Oral QD 07/08/19 021 Inactive Blood Glucose Test strips RxNorm: Use 1 Test Strip QID at PRN 07/08/19 21 Inactive E11.42 senna 8.6 mg tablet RxNorm: 188826 Take 1 Tablet(s) Oral QD 07/08/19 025 Inactive Novolog Flexpen U-100 Insulin aspart 100 unit/mL (3 mL) subcutaneous RxNorm: 9985869 Administer per sliding scale Milliliter(s) Subcutaneous TID 151-200: 10 u; 201-250: 20 u; 251-300: 30 u; 301-350: 40 u; 351-400: 50 u. 07/08/19 21 022 Inactive lisinopril 5 mg tablet RxNorm: 372832 Take 1 Tablet(s) Oral QD 07/08/19 021 Inactive Novolog Flexpen U-100 Insulin aspart 100 unit/mL (3 mL) subcutaneous RxNorm: 8870247 Inject 85 Unit(s) Subcutaneous TID 07/08/19 022 Inactive pravastatin 80 mg tablet RxNorm: 198204 Take 1 Tablet(s) Oral QHS every night at bedtime 07/08/19 023 Inactive clotrimazole 1 % topical cream RxNorm: 234928 Apply to bilateral groin areas Topical BID 07/08/19 022 Inactive metoprolol succinate ER 200 mg tablet,extended release 24 hr RxNorm: 233358 Take 1 Tablet(s) Oral QD 07/08/19 021 Inactive Vitamin D3 25 mcg (1,000 unit) tablet RxNorm: 463877 Take 1 Tablet(s) Oral QD 07/08/19 021 Inactive isosorbide dinitrate 30 mg tablet RxNorm: 679924 Take 1 Tablet(s) Oral QD 07/08/19 021 Inactive carbamazepine 200 mg tablet RxNorm: 698899 Take 1 Tablet(s) Oral BID 07/08/19 025 Inactive Levemir FlexTouch U-100 Insulin 100 unit/mL (3 mL) subcutaneous pen RxNorm: 799039 Inject 140 Unit(s) Subcutaneous BID 07/08/19 021 Inactive torsemide 20 mg tablet RxNorm: 609956 Take 1 Tablet(s) Oral QD 07/08/19 023 Inactive venlafaxine 75 mg tablet RxNorm: 655966 Take 1 Tablet(s) Oral QD 07/08/19 021 Inactive acetaminophen 500 mg tablet RxNorm: 073320 Take 1 Tablet(s) Oral TID as needed for headache 06/18/19 021 Inactive acetaminophen 500 mg tablet RxNorm: 246407 Take 1 Tablet(s) Oral TID as needed for headache 06/18/19 021 Inactive Lyrica 100 mg capsule RxNorm: 129023 Take 1 Capsule(s) Oral QHS every night at bedtime 06/11/19 021 Inactive Lyrica 50 mg capsule RxNorm: 232106 Take 1 Capsule(s) Oral QAM every morning 06/10/19 21 021 Inactive hydrocortisone 2.5 % topical cream RxNorm: 527889 Apply to bilateral groin creases Topical BID 05/15/20 20 021 Inactive clotrimazole 1 % topical cream RxNorm: 816986 Apply to bilateral groin areas Topical BID 05/15/20 20 Inactive Lyrica 50 mg capsule RxNorm: 638606 Take 1 Capsule(s) Oral QAM every morning 05/14/20 20 Inactive Lyrica 100 mg capsule RxNorm: 527462 Take 1 Capsule(s) Oral QHS every night [...] Inactive Nystop 100,000 unit/gram topical powder RxNorm: 856190 Apply to abd folds, under breasts and L side of groin Topical BID x 14 days, then BID PRN 04/08/20 20 Inactive dx: yeast dermatitis Lyrica 100 mg capsule RxNorm: 516376 Take 1 Capsule(s) Oral QHS every night at bedtime 03/13/20 20 Inactive Lyrica 50 mg capsule RxNorm: 399025 Take 1 Capsule(s) Oral QAM every morning 03/13/20 20 Inactive ketoconazole 2 % shampoo RxNorm: 703424 Apply Topical two times a week with showers 03/11/20 20 024 Inactive cholecalciferol (vitamin D3) 50 mcg (2,000 unit) tablet RxNorm: 186974 Take 1 Tablet(s) Oral QD 03/11/20 20 021 Inactive Zetia 10 mg tablet RxNorm: 341751 Take 1 Tablet(s) Oral QD 03/07/20 20 021 Inactive Zetia 10 mg tablet RxNorm: 151585 Take 1 Tablet(s) Oral QD 03/07/20 20 020 Inactive Lyrica 50 mg capsule RxNorm: 275762 Take 1 Capsule(s) Oral QAM every morning 02/15/20 20 Inactive Lyrica 100 mg capsule RxNorm: 979221 Take 1 Capsule(s) Oral QHS every night at bedtime 02/15/20 20 Inactive Lyrica 100 mg capsule RxNorm: 284901 Take 1 Capsule(s) Oral QHS every night at bedtime 02/15/20 20 Inactive Lyrica 50 mg capsule RxNorm: 173747 Take 1 Capsule(s) Oral QAM every morning 02/15/20 Inactive venlafaxine ER 75 mg capsule,extended release 24 hr RxNorm: 350967 Take 3 Capsule(s) Oral QD 06/12/19 22 023 Inactive polyethylene glycol 3350 17 gram/dose oral powder RxNorm: 747118 Take 17=1 capful Gram(s) Oral BID as needed mix with 4-8oz of liquid 06/12/19 22 024 Inactive icosapent ethyl 1 gram capsule RxNorm: 9668922 Take 2 Capsule(s) (2 gm) Oral BID with meals 10/07/19 23 023 Inactive Okay to dispense one 2gm tab if you have that available. Levemir FlexTouch U-100 Insulin 100 unit/mL (3 mL) subcutaneous pen RxNorm: 902993 Inject 80 Unit(s) Subcutaneous BID 07/14/19 023 Inactive metoprolol succinate ER 200 mg tablet,extended release 24 hr RxNorm: 940152 Take 1 Tablet(s) Oral QD 08/12/19 025 Inactive loperamide 2 mg capsule RxNorm: 547838 Take 1 Capsule(s) Oral QID as needed 09/06/19 025 Inactive hydralazine 50 mg tablet RxNorm: 672026 Take 1 Tablet(s) Oral QID 08/12/19 025 Inactive Soft Touch Lancets RxNorm: miscellaneous 03/04/20 025 Inactive Novolog Flexpen U-100 Insulin aspart 100 unit/mL (3 mL) subcutaneous RxNorm: 3593876 Insert 30 Unit(s) Subcutaneous TID with meals [...] Result Date S ervice Location PHQ9 PHQ9 46628-0 5 10/10/2024 Unknown Procedures Procedure Codes Date Toenail Debridement CPT-4: 26891 10/10/2024 HEMOGLOBIN A1C LEVEL >9.0% CPT-4: 3046F 10/10 SYS BP LESS 140 CPT-4: G8752 10/10/2024 CUI BP LESS 90 CPT-4: G8754 10/10/2024 POS CLIN DEPRES SCRN F/U DOC SNOMED CT: 28764806 CPT-4: G8431 10/10/2024 Vital Signs Date Vital 10/10/2024 Blood Pressure 1: 136/76 Code: 8480-6 BMI: NaN Code: 63519-4 Heart Rate 1: 88 bpm Code: 8867-4 [...] Location Location Address Codes Date () Home Visit - Est Pt, moderate Diagnosis: Hypokalemia[ICD10: E87.6] Diagnosis: Lower extremity edema[ICD10: R60.0] Diagnosis: Stage 2 chronic 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[ICD10: E11.22] Diagnosis: Type 2 diabetes mellitus with diabetic polyneuropathy, with long-term current use of insulin[ICD10: E11.42] Diagnosis: Pulmonary nodule[SNOMED: 096042418] Diagnosis: Amputated toe of right foot[ICD10: S98.131A] Diagnosis: Hypercoagulable state[ICD10: D68.59] Diagnosis: Major depression, recurrent[ICD10: F33.9] Diagnosis: Onychogryposis[ICD10: L60.2] Diagnosis: Recurrent major depressive disorder, in partial remission[ICD10: F33.41] Harrison Munson [facility] [place] [facility] [place] [address] [address] [phone] CPT-4: 95281 10/10/2024 Plan of Care Planned Activity Notes Codes Status Date Referral: [id number] [place] Referral Appointment Scheduled 10/20/2024 Patient Education: Patient Medication Summary Completed 10/10/2024 Patient Education: Influenza Complet ed 10/10/2024 Appointment: Brian Munson WPtel: [address] [place] F/U 08/08/2024 Appointment: Brian Munson WPtel: [address] [place] F/U 07/11/2024 Referral: [facility] [place]/Endocrinology WPtel: [address] [facility] 3 [id number] [place] Referral No Records Received 07/10/2024 Appointment: Brian Munson WPtel: [address] [place], [place] [id number] [place] AWV 02/08/2024 Appointment: Brian Munson WPtel: [address] [place], [place] [id number] [place] F/U 01/11/2024 Appointment: Sandra Clark WPtel: [address] [place], [place] [phone] Telehealth Psych Follow Up 12/09 Appointment: Tapan Shirley WPtel: [address] [place], [place] [phone] TCM 10/26/2022 Referral: [facility] WPtel: [address], [address] [id number] [place] Referral Records Received 09/21/2022 Appointment: Tapan Shirley WPtel: [address] [place] [address] [id number] [place] F/U 08/11/2022 Appointment: Tapan Shirley WPtel: [address] [facility] [address] [id number] [place] F/U 07/14/2022 Appointment: Tapan Shirley WPtel: [address] [facility] 300 [id number] [place] F/U 02/10/2022 Referral: [facility] WPtel: [phone] [facility] [address] [id number] [place] Referral Completed 05/28/2021 Referral: General Cardiology [...] Sister Jyotsna involved in his care cell# [phone] Guardian: Giulia (tapan met in person 09/01/21), [...] appointment 05.26.2024 with Jessa Webster MD at [facility]. Start Pioglitazone 15 mg QD. Stop Basaglar insulin. Increase Ozempic 2 mg once wkly. Continue Humalin R U-500 100 units with meals TID. FOLLOW UP 2 MONTHS. If BG >400 add 50 units to next scheduled dose of Humalin R U 500 insulin 06/12/2024 Hypokalemia Lab work resulted since last visit. Discussed today with Leonid. 09.08.2024: BMP Na 141. K 3.0L. Creatinine 1.0. eGFR 84. Ca 9.0. BG 238H. A1c 9.8%. Increased potassium supplementation from BID to TID Today will order serum potassium recheck. Hypercoagulable state Chronic Moniotr for S&S thrombus formation No S&S present otday Continue Eliquis and Apsirin PCP has to trim toenails due to [...] will order potassium lab work for follow up. Control BP as appropriate for age, risk for falls, and life expectancy. Avoid nephrotoxic medications. Renal dose medications as appropriate. Lower extremity edema Chronic Nonpitting Wears compression socks daily - knee high - staff assist with placement Was taking Torsemide QD and Potassium supplementation BID although recent () low potassium level. Currently taking torsemide QD and Potassium TID now. Today will re-order potassium lab work for follow up Encouraged proper hygiene and daily monitoring of skin integrity Major depression, recurrent Chronic depression PHQ today with a score of 5 Enjoys working with BPS BHI program - continue this Encouraged to get out of his bedroom and socialize Encouraged to go outside for fresh air Leonid chooses to spend his days in his bedroom sitting in his recliner which greatly limited human interactions. Continue Abilify 7.5 mg QD and Venlafaxine 225 mg QD. Onychogryposis Toenails trimmed today - discussed in HPI and PE. Type 2 diabetes mellitus with diabetic polyneuropathy, with long-term current use of insulin Endocrinology appointment 05.26.2024 with Jessa Webster MD at [facility]. Started Pioglitazone 15 mg QD. Stop Basaglar insulin. Increase Ozempic 2 mg once wkly. Continue Humalin R U-500 100 units with meals TID. FOLLOW UP 2 MONTHS. If BG >400 add 50 units to next scheduled dose of Humalin R U 500 insulin. Continue close follow up with new insurance operations rep diabetic orders after endocrinology appt - Humulin 140 units with breafast and supper, 120 units with lunch, ozempic, and pioglitazone continued. Continue medication regimen set forth by specialty team. PCP will defer diabetes management for specialist PCP will follow up on BG log at each visit and consult nursing staff to ensure Leonid has the needed supplies for diabetes management, and continue to encourage healthy dietary intake and increased physical activity as able. Lab work resulted since last appt and faxed to insurance operations rep as well. Although microalbuinurine was unable to be collected 09.08.2024: BMP Na 141. K 3.0L. Creatinine 1.0. eGFR 84. Ca 9.0. BG 238H. A1c 9.8%. Increased potassium supp from BID to TID. Amputated toe of right foot Hx amuptation due to infection Healed well No skin brekdown noted today Monitor closely for skin integrity breakdown and infection Hygiene is very important Pulmonary nodule Chest CT without contrast. 11.03.2023 CT showed pulmonary nodule (solid 4mm LLL and LLL calcified granuloma) Today ordering one year follow up as recommended by radiologist in 2023. Recurrent major depressive disorder, in partial remission Chronic PHQ score 5 today Continue BPS BHI Continue current mendication regimen - abilify and venlafaxine daily. . 10/10/2024
--- OUTSIDE RECORDS SUMMARY | 2024-10-19 19:55 | XMS_ITS | CCD ---
Author Organization Unknown Care Team Providers Care [facility] [facility] [employer] Name Role Phone Harrison Durham Primary Care Provider Leona vailable Unavailable Chronic Care Management Unavaila ble Summary Purpose DataExchange Insurance Providers Payer name Policy type / Coverage type Covered constitution party ID Effective Begin Date Effective End Date [place] [id number] Unknown Unknown [place] B [id number] Unknown Unknown Family history Sister Brittany Suggs [...] on file 07/11/[address]: 935998866 Never smoker 01/16 Sexually Active? Unknown No [...] Unknown Longterm 09/03/[address]: 690026360 No Alcohol Consum ption 09/02/2020 Allergies, Adverse Reactions, Alerts Substance Reaction Codes Entered Date Inactivated Date Status * NO KNOWN FOOD ALLERGIES Unknown 07/13/2023 No Inactive Date Active LISINOPRIL RxNorm: 08175 02/12/2020 No Inactive Da te Active Metformin HCl Unknown 02/12/2020 No Inactive Cristiano e Active * NO KNOWN ENVIRONMENTAL ALLERGIES Unknown 07/13/2023 No Inactive Date Active Problems Condition Codes Effective Dates Condition St atus Body mass index [BMI] 60.0-69.9, adult SNOMED CT: 185000605 ICD-10: Z68.44 ICD-9: V85.44 08/08/2024 Active 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 ICD-10: K59.01 ICD-9: 564.01 08/08/2024 Active Mixed incontinence SNOMED CT: 46460433 ICD-10: N39.46 ICD-9: 788.33 08/08/2024 Active Type [...] 701.9 09/07/2023 Resolved Coronary artery disease involving [place] coronary artery of [place] heart, angina presence unspecified ICD-10: I25.10 ICD-9: [...] Fill Instructions pregabalin 150 mg capsule RxNorm: 968876 1 CAPSULE BY MOUTH AT BEDTIME (DX: NEUROPATHY) 08/21/19 025 Active FACILITY IS REQUESTING A REFILL OF THIS MEDICATION, THANK YOU! senna 8.6 mg tablet RxNorm: 162564 Take 1 Tablet(s) Oral QD as needed for constipation on day 2 of no bowel movement 08/09/19 25 025 Inactive Miralax 17 gram/dose oral powder RxNorm: 304489 Administer 17 Gram(s) Oral QD as needed for constipation on day 3 of no bowel movement 08/09/19 25 025 Inactive senna 8.6 mg tablet RxNorm: 671450 Take 1 Tablet(s) Oral QD as needed for constipation on day 2 of no bowel movement 08/09/19 25 025 Inactive Miralax 17 gram/dose oral powder RxNorm: 469932 Administer 17 Gram(s) Oral QD as needed for constipation on day 3 of no bowel movement 08/09/19 25 025 Inactive pregabalin 100 mg capsule RxNorm: 109706 Take 1 Capsule(s) Oral QAM every morning [...] (Concentrated) Insulin 500 unit/mL subcutaneous soln RxNorm: 359453 Inject 100 Unit(s) Subcutaneous AC before meals Three times daily before meals. 07/24/19 25 025 Inactive ammonium lactate 12 % topical cream RxNorm: 182185 Apply 1 Application Topical BID 07/20/19 25 No Stop Date Active ezetimibe 10 mg tablet RxNorm: 966371 Take 1 Tablet(s) Oral QD 07/18/19 25 No Stop Date Active senna 8.6 mg tablet RxNorm: 156860 Take 1 Tablet(s) Oral QD 07/18/19 25 025 Inactive metoprolol succinate ER 200 mg tablet,extended release 24 hr RxNorm: 135522 Take 1 Tablet(s) Oral QD 06/19/19 25 No Stop Date Active pantoprazole 40 mg tablet,delayed release RxNorm: 975735 Take 1 Tablet(s) Oral QAM every morning 06/19/19 25 No Stop Date Active hydralazine 50 mg tablet RxNorm: 450037 Take 1 Tablet(s) Oral QID 06/19/19 25 No Stop Date Active carbamazepine 200 mg tablet RxNorm: 227021 Take 1 Tablet(s) Oral BID 06/19/19 25 No Stop Date Active amlodipine 10 mg tablet RxNorm: 515286 Take 1 Tablet(s) Oral QD 06/19/19 25 No Stop Date Active Eliquis 5 mg tablet RxNorm: 8102267 Take 1 Tablet(s) Oral BID 06/19/19 25 No Stop Date Active pen needle, diabetic 30 gauge x 3/16 RxNorm: Use 1 6 times per day w/insulin 06/14/19 25 026 Active pen needle, diabetic 30 gauge x 3/16 RxNorm: Use 1 needle 6 times per day w/insulin 06/14/19 25 025 Inactive nystatin 100,000 unit/gram topical powder RxNorm: 971043 Apply 1 Application Topical BID as needed abdominal/breast /groin folds 05/24/19 25 026 Active pregabalin 100 mg capsule RxNorm: 819401 Take 1 Capsule(s) Oral QAM every morning 05/22/19 25 025 Inactive nystatin 100,000 unit/gram topical powder RxNorm: 575523 Apply 1 Application Topical BID as needed abdominal/breast /groin folds 04/11/20 24 024 Inactive chlorthalidone 25 mg tablet RxNorm: 103485 Take 1 Tablet(s) Oral QAM every morning 04/06/20 No Stop Date Active pregabalin 150 mg capsule RxNorm: 935195 Take 1 Capsule(s) Oral QHS every night at bedtime 03/31/20 24 024 Inactive Vascepa 1 gram capsule RxNorm: 5819912 Take 2 Capsule(s) Oral BID 03/30/20 24 025 Active rosuvastatin 40 mg tablet RxNorm: 363503 1 TAB ORALLY EVERY EVENING (DX:CORONARY ARTERY DISEASE) 03/28/20 24 No Stop Date Active venlafaxine ER 75 mg capsule,extended release 24 hr RxNorm: 102403 3 CAPS (225MG) ORALLY DAILY (DX: MOOD DISORDER) 03/28/20 24 No Stop Date Active pregabalin 100 mg capsule RxNorm: 068853 Take 1 Capsule(s) Oral QAM every morning 03/20/20 24 024 Inactive cholecalciferol (vitamin D3) 1,250 mcg (50,000 unit) capsule RxNorm: 322950 Take 1 Capsule(s) Oral QW once a [...] Insulin 100 unit/mL (3 mL) subcutaneous RxNorm: 5992389 Inject 40 Unit(s) Subcutaneous BID 03/07/20 Inactive Please dispense one month supply. Humulin R U-500 (Concentrated) Insulin 500 unit/mL subcutaneous soln RxNorm: 416956 Inject 100 Unit(s) Subcutaneous AC before meals [...] PRN) to be use with new Accu [place] meter 03/04/20 Inactive ok to substitute with any covered alternative test strip FreeStyle Chema 2 Sensor kit RxNorm: Use UD as directed 03/02/20 Inactive Pen Needle 30 gauge x 516 RxNorm: Pen(s) Use 1 needle as directed TID 03/02/20 24 024 Inactive nystatin 100,000 unit/gram topical powder RxNorm: 778331 Apply 1 Application Topical BID as needed [...] (Concentrated) Insulin 500 unit/mL subcutaneous soln RxNorm: 444569 Inject 100 Unit(s) Subcutaneous TID 02/17/20 24 024 Inactive Humulin R U-500 (Concentrated) Insulin 500 unit/mL subcutaneous soln RxNorm: 258008 Inject 100 Unit(s) Subcutaneous TID 02/10/20 24 024 Inactive Basaglar KwikPen U-100 Insulin 100 unit/mL (3 mL) subcutaneous RxNorm: 0661385 Inject 30 Unit(s) Subcutaneous BID 02/10/20 24 024 Inactive Please dispense one month supply. pregabalin 100 mg capsule RxNorm: 573161 Take 1 Capsule(s) Oral QAM every morning 02/07/20 24 024 Inactive isosorbide mononitrate ER 60 mg tablet,extended release 24 hr RxNorm: 833963 Take 1 Tablet(s) Oral QD 02/01/20 24 025 Active aripiprazole 15 mg tablet RxNorm: 807284 Take 1/2 Tablet(s) Oral QD 02/01/20 24 025 Active torsemide 20 mg tablet RxNorm: 712787 1 TAB ORALLY DAILY (DX: EDEMA) 01/27/20 24 No Stop Date Active potassium chloride ER 20 mEq tablet,extended release(part/cryst) RxNorm: 5942680 2 TABS (40MEQ) ORALLY TWICE DAILY (DX: HYPOKALEMIA) 01/27/20 24 Inactive cephalexin 500 mg capsule RxNorm: 859378 Take 1 Capsule(s) Oral QID 12/17/19 24 024 Inactive cephalexin 500 mg capsule RxNorm: 852997 Take 1 Capsule(s) Oral QID 12/17/19 24 Inactive acetaminophen 500 mg tablet RxNorm: 158688 (MAX APAP:4GM/24HR) Take 1 Tablet(s) Oral TID as needed for pain 12/10/19 Inactive torsemide 20 mg tablet RxNorm: 035274 Take 1 Tablet(s) Oral QD 10/26/19 24 Inactive potassium chloride ER 20 mEq tablet,extended release RxNorm: 519255 Take 2 Tablet(s) Oral BID 10/26/19 24 Inactive torsemide 20 mg tablet RxNorm: 731946 Take 1 Tablet(s) Oral QD 10/26/19 24 025 Inactive potassium chloride ER 20 mEq tablet,extended release RxNorm: 741506 Take 2 Tablet(s) Oral BID 10/26/19 24 025 Inactive Artificial Tears (PF) 0.1 %-0.3 % drops in a dropperette RxNorm: 264868 Apply 1-2 Drop(s) Both eyes BID as needed 09/28/19 24 Inactive erythromycin 5 mg/gram (0.5 %) eye ointment RxNorm: 940967 Apply 1 Application Both eyes QHS every night at bedtime Instill ~1 cm ribbon into affected eye 09/28/19 24 Inactive Artificial Tears (PF) 0.1 %-0.3 % drops in a dropperette RxNorm: 674580 Apply 1-2 Drop(s) Both eyes BID as needed 09/28/19 24 024 Inactive erythromycin 5 mg/gram (0.5 %) eye ointment RxNorm: 512385 Apply 1 Application Both eyes QHS every night at bedtime Instill ~1 cm ribbon into affected eye 09/28/19 24 024 Inactive acetaminophen 500 mg tablet RxNorm: 360139 (MAX APAP:4GM/24HR) Take 1 Tablet(s) Oral TID as needed for pain 09/24/19 24 024 Inactive carvedilol 25 mg tablet RxNorm: 323242 Take 1 Tablet(s) Oral QD 09/08/19 24 No Stop Date Active pregabalin 100 mg capsule RxNorm: 533801 Take 1 Capsule(s) Oral QAM every morning 09/07/19 24 024 Inactive bisacodyl 10 mg rectal suppository RxNorm: 778783 Insert 1 Suppository Rectal QD as needed 07/13/19 24 No Stop Date Active ketoconazole 2 % shampoo RxNorm: 138120 Apply 1 Application Topical UD as directed 07/13/19 24 No Stop Date Active Ozempic 1 mg/dose (4 mg/3 mL) subcutaneous pen injector RxNorm: 3439393 Inject 1 Milligram(s) Subcutaneous QW once a week 07/13/19 24 No Stop Date Active Guaifenesin AC 10 mg-100 mg/5 mL oral liquid RxNorm: 823676 Take 10 Milliliter(s) Oral Q4H every four hours as needed 07/13/19 24 No Stop Date Active hydrocortisone 2.5 % topical cream RxNorm: 535301 Apply 1 Application Topical BID as needed 07/13/19 24 No Stop Date Active rosuvastatin 20 mg sprinkle capsule RxNorm: 7987511 Take 1 Capsule(s) Oral QD 07/13/19 24 025 Inactive rosuvastatin 40 mg tablet RxNorm: 074007 Take 1 Tablet(s) Oral QPM every evening 07/13/19 24 024 Inactive ezetimibe 10 mg tablet RxNorm: 985675 Take 1 Tablet(s) Oral QD 07/13/19 24 025 Inactive polyethylene glycol 3350 17 gram/dose oral powder RxNorm: 460601 Take 17 Gram(s) Oral BID as needed mix in 4-8ox water 07/13/19 24 025 Inactive aripiprazole 15 mg tablet RxNorm: 390252 Take 1/2 Tablet(s) Oral QD 07/13/19 24 024 Inactive isosorbide mononitrate ER 60 mg tablet,extended release 24 hr RxNorm: 974293 Take 1 Tablet(s) Oral QD 07/13/19 24 024 Inactive ammonium lactate 12 % topical cream RxNorm: 615984 Apply 1 Application Topical BID 07/13/19 24 025 Inactive Vascepa 1 gram capsule RxNorm: 5648424 Take 2 Capsule(s) Oral BID 07/13/19 24 024 Inactive venlafaxine ER 75 mg capsule,extended release 24 hr RxNorm: 542046 Take 3 Capsule(s) Oral QD 07/13/19 24 024 Inactive Basaglar KwikPen U-100 Insulin 100 unit/mL (3 mL) subcutaneous RxNorm: 4427780 Inject 30U SubQ twice daily 07/07/19 24 024 Inactive Please dispense one month supply. Basaglar KwikPen U-100 Insulin 100 unit/mL (3 mL) subcutaneous RxNorm: 5772043 Inject 30U SubQ twice daily 07/07/19 24 024 Inactive Please dispense one month supply. pregabalin 150 mg capsule RxNorm: 938178 Take 1 Capsule(s) Oral QHS every night at bedtime 07/05/19 24 024 Inactive pregabalin 150 mg capsule RxNorm: 539073 Take 1 Capsule(s) Oral QHS every night at bedtime 07/05/19 24 024 Inactive polyethylene glycol 3350 17 gram/dose oral powder RxNorm: 306945 Take 1 Packet Oral QD as needed (1 packet = 17g) mix with 4-8oz of liquid 06/15/19 24 024 Inactive bisacodyl 10 mg rectal suppository RxNorm: 088450 Insert one suppository per rectum once daily as needed for constipation 06/15/19 24 024 Inactive bisacodyl 10 mg rectal suppository RxNorm: 088221 Insert one suppository per rectum once daily as needed for constipation 06/15/19 24 024 Inactive pregabalin 100 mg capsule RxNorm: 690347 Take 1 Capsule(s) Oral QAM every morning 04/27/20 23 024 Inactive Levemir FlexPen 100 unit/mL (3 mL) solution subcutaneous insulin pen RxNorm: 117839 Inject 30 Unit(s) Subcutaneous BID 04/27/20 024 Inactive rosuvastatin 40 mg tablet RxNorm: 593691 Take 1 Tablet(s) Oral QPM every evening 04/16/20 024 Inactive D/C rosuvastatin 20mg venlafaxine ER 75 mg capsule,extended release 24 hr RxNorm: 482185 Take 3 Capsule(s) Oral QD 04/14/20 023 Inactive pregabalin 100 mg capsule RxNorm: 437238 Take 1 Capsule(s) Oral QAM every morning [...] strip clotrimazole 1 % topical cream RxNorm: 878684 Take apply topically to abdominal folds twice daily for 14 days 03/12/20 024 Inactive Ozempic 1 mg/dose (4 mg/3 mL) subcutaneous pen injector RxNorm: 6520141 Inject 1 Milligram(s) Subcutaneous QW once a week 03/11/20 023 Inactive rosuvastatin 20 mg tablet RxNorm: 776194 Take 1 Tablet(s) Oral QD 02/26/20 023 Inactive d/c pravastatin 80mg Ozempic 1 mg/dose (4 mg/3 mL) subcutaneous pen injector RxNorm: 9517652 Inject 1 Milligram(s) Subcutaneous QW once a week 02/20/20 23 023 Inactive pregabalin 150 mg capsule RxNorm: 013022 Take 1 Capsule(s) Oral HS at bed time 02/19/20 23 023 Inactive pregabalin 100 mg capsule RxNorm: 918184 Take 1 Capsule(s) Oral QAM every morning 02/18/20 23 023 Inactive venlafaxine ER 75 mg capsule,extended release 24 hr RxNorm: 649181 Take 3 Capsule(s) Oral QD 02/04/20 23 023 Inactive FreeStyle Chema 2 Sensor kit RxNorm: use as directed 02/04/20 23 023 Inactive FreeStyle Chema 2 Sensor kit RxNorm: use as directed 02/04/20 23 024 Inactive fluconazole 150 mg tablet RxNorm: 189907 Take 1 Tablet(s) Oral on day 3 and on day 6 02/03/20 024 Inactive venlafaxine ER 150 mg capsule,extended release 24 hr RxNorm: 213278 Take 1 Capsule(s) Oral QD 02/03/20 23 023 Inactive chlorthalidone 25 mg tablet RxNorm: 445167 Take 1 Tablet(s) Oral QAM every morning 02/03/20 23 024 Inactive acetaminophen 500 mg tablet RxNorm: 603887 1 TABLET ORALLY 3 TIMES DAILY (MAX APAP:4GM/24HR) 12/15/19 23 023 Inactive clotrimazole 1 % topical cream RxNorm: 551220 apply 1g topically to top of feet and in between toes BID 12/09/19 23 025 Inactive potassium chloride ER 20 mEq tablet,extended release RxNorm: 247199 Take 1 Tablet(s) Oral BID 12/09/19 23 024 Inactive d/c 20mEq once daily (sent from hospital) nystatin 100,000 unit/gram topical powder RxNorm: 713775 APPLY TO AFFECTED AREAS TOPICALLY 2 TIMES DAILY 11/21/19 23 023 Inactive Nystop 100,000 unit/gram topical powder RxNorm: 064956 Apply to abd folds, under breasts and L side of groin Topical BID x 14 days, then BID PRN 11/20/19 23 023 Inactive dx: yeast dermatitis [place] Ultra Strength 4 %-30 %-10 % topical cream RxNorm: 743522 Apply 1 Gram(s) Topical QID PRN to feet and legs for neuropathic pain 11/11/19 024 Inactive clotrimazole 1 % topical cream RxNorm: 031813 Apply 1/2 Gram(s) Topical BID Apply to affected areas of groin, periarea, and abdominal topically 2 times daily 11/10/19 023 Inactive hydrocortisone 2.5 % topical cream RxNorm: 288493 Apply 1/2 Gram(s) Topical BID as needed 11/10/19 024 Inactive Levemir FlexPen 100 unit/mL (3 mL) solution subcutaneous insulin pen RxNorm: 981870 Inject 30 Unit(s) Subcutaneous BID 10/07/19 023 Inactive Humulin R U-500 (Concentrated) Insulin 500 unit/mL subcutaneous soln RxNorm: 272116 Inject 100 Unit(s) Subcutaneous TID 10/07/19 024 Inactive Ozempic 0.25 mg or 0.5 mg (2 mg/3 mL) subcutaneous pen injector RxNorm: 0250922 Inject 1/2 Milligram(s) Subcutaneous QW once a week 10/07/19 024 Inactive aripiprazole 15 mg tablet RxNorm: 160282 1/2 TAB (7.5MG) ORALLY DAILY (DX:MAJOR DEPRESSIVE DISORDER) 09/23/19 023 Inactive Accu-Chek Guide test strips RxNorm: Use 1 Test Strip QID 09/15/19 23 023 Inactive ok to substitute with any covered alternative test strip Lancets,Thin 28 gauge RxNorm: Use 1 as directed QID 09/15/19 023 Inactive torsemide 20 mg tablet RxNorm: 585635 Take 1 Tablet(s) Oral BID 09/09/19 23 024 Inactive d/c once daily dosing carvedilol 25 mg tablet RxNorm: 900575 Take 1 Tablet(s) Oral QD 08/25/19 024 Inactive pregabalin 150 mg capsule RxNorm: 693564 1 Capsule(s) Oral HS at bed time 08/18/19 23 023 Inactive pregabalin 100 mg capsule RxNorm: 951978 1 Capsule(s) Oral QAM every morning 08/18/19 23 023 Inactive carvedilol 25 mg tablet RxNorm: 882448 1 Tablet(s) Oral QD 07/28/19 23 023 Inactive lisinopril 20 mg tablet RxNorm: 588082 Give 1 Tablet(s) Oral QD 07/28/19 23 023 Inactive Lyrica 150 mg capsule RxNorm: 469351 Take 1 Capsule(s) Oral QHS every night at bedtime 07/19/19 023 Inactive d/c 100mg dose Diflucan 150 mg tablet RxNorm: 345794 Take 1 Tablet(s) Oral QD repeat on day 3 and 6 07/19/19 23 023 Inactive pregabalin 100 mg capsule RxNorm: 758048 Take 1 Capsule(s) Oral QAM every morning 07/19/19 023 Inactive gatifloxacin 0.5 % eye drops RxNorm: 419652 Instill 1 Drop(s) as directed TID Instill 1 drop in to affected eye(s) starting 1 day prior to surgery and continue until gone (do not exceed 4 weeks). 07/13/19 23 023 Inactive carvedilol 25 mg tablet RxNorm: 801156 2 Tablet(s) Oral BID 07/13/19 023 Inactive Humulin R Regular U-100 Insulin 100 unit/mL injection solution RxNorm: 639268 85 Unit(s) Injection TID 07/13/19 023 Inactive ketorolac 0.5 % eye drops RxNorm: 905991 Instill 1 Drop(s) as directed QID Instill 1 drop into affected eye(s) 4 times daily starting 1 day prior to surgery and continue until gone (do not exceed 4 weeks). 07/13/19 023 Inactive Diflucan 150 mg tablet RxNorm: 856205 Take 1 Tablet(s) Oral QD repeat on day 3 and 6 06/30/19 23 023 Inactive Accu-Chek Guide test strips RxNorm: Use 1 Test Strip QID Use 1 test strip to monitor blood glucose 4 times daily and as needed. Dx:E11.42. 06/23/19 23 023 Inactive ok to substitute with any covered alternative test strip dextromethorphan-gu aifenesin 10 mg-100 mg/5 mL oral liquid RxNorm: 562137 Take 10 Milliliter(s) Oral every 4 hours as needed for cough 06/19/19 023 Inactive dextromethorphan-gu aifenesin 10 mg-100 mg/5 mL oral liquid RxNorm: 418262 Take 10 Milliliter(s) Oral every 4 hours as needed for cough 06/19/19 023 Inactive Lyrica 150 mg capsule RxNorm: 173709 Take 1 Capsule(s) Oral QHS every night at bedtime 06/18/19 023 Inactive d/c 100mg dose aripiprazole 15 mg tablet RxNorm: 568307 1/2 TAB (7.5MG) ORALLY DAILY (DX:MAJOR DEPRESSIVE DISORDER) 06/05/19 23 023 Inactive pregabalin 100 mg capsule RxNorm: 337673 1 Capsule(s) Oral QAM every morning 06/02/19 023 Inactive Banophen 50 mg capsule RxNorm: 4739905 Take 1 Capsule(s) Oral Q6H every 6 hours as needed 05/19/19 23 No Stop Date Active Novolog Flexpen U-100 Insulin aspart 100 unit/mL (3 mL) subcutaneous RxNorm: 3800995 Inject 10 Unit(s) Subcutaneous QHS every night at bedtime with nighttime snack 04/08/20 022 Inactive Novolog Flexpen U-100 Insulin aspart 100 unit/mL (3 mL) subcutaneous RxNorm: 5686076 Inject 42 Unit(s) Subcutaneous TID in addition to sliding scale 04/08/20 022 Inactive d/c 36u albuterol sulfate HFA 90 mcg/actuation aerosol inhaler RxNorm: 6341131 Take 2 Puff(s) Inhalation Q4H every four hours as needed as needed for SOB, cough, or wheezing 04/07/20 030 Active Banophen 50 mg capsule RxNorm: 6108337 Take 1 Capsule(s) Oral Q6H every 6 hours as needed 04/06/20 023 Inactive diphenhydramine 50 mg tablet RxNorm: 5270981 Take 1 Tablet(s) Oral Q6H every 6 hours as needed 04/06/20 22 022 Inactive diphenhydramine 50 mg tablet RxNorm: 0662651 1 Tablet(s) Oral Q6H every 6 hours as needed 04/06/20 22 022 Inactive Abilify 15 mg tablet RxNorm: 221864 1/2 Tablet(s) Oral QD 03/10/20 023 Inactive Shingrix (PF) 50 mcg/0.5 mL intramuscular suspension, kit RxNorm: 5030313 Administer 1/2 Milliliter(s) Intramuscular QD one time shingrix step 2 ( step 1 given 11/04/21) WITH needle - Nursing please administer upon arrival and once administered post a bridge message with date of administration, integrity specialist, expiration date, and lot# so we can update [facility] 02/18/20 22 022 Inactive dispense with needle Shingrix (PF) 50 mcg/0.5 mL intramuscular suspension, kit RxNorm: 1345123 Administer 1/2 Milliliter(s) Intramuscular QD one time shingrix step 2 ( step 1 given 11/04/21) WITH needle - Nursing please administer upon arrival and once administered post a bridge message with date of administration, integrity specialist, expiration date, and lot# so we can update [facility] 02/18/20 22 022 Inactive dispense with needle Lyrica 100 mg capsule RxNorm: 026977 Take 1 Capsule(s) Oral QAM every morning 01/08/20 22 022 Inactive d/c 50mg dose acetaminophen 500 mg tablet RxNorm: 987929 Take 1 Tablet(s) Oral TID 01/08/20 22 022 Inactive d/c PRN order Lyrica 150 mg capsule RxNorm: 906320 Take 1 Capsule(s) Oral QHS every night at bedtime 01/08/20 22 023 Inactive d/c 100mg dose polyethylene glycol 3350 17 gram/dose oral powder RxNorm: 236551 Take 17=1 capful Gram(s) Oral QD mix with 4-8oz of liquid 01/08/20 22 025 Inactive take this in addition to BID prn order Abilify 5 mg tablet RxNorm: 325172 Take 1 Tablet(s) Oral QD take 1 tab po QD #30 refill 5 dx: MDD 12/12/19 22 022 Inactive Abilify 5 mg tablet RxNorm: 057507 Take 1 Tablet(s) Oral QD take 1 tab po QD #30 refill 5 dx: MDD 12/12/19 22 022 Inactive Novolog Flexpen U-100 Insulin aspart 100 unit/mL (3 mL) subcutaneous RxNorm: 0934231 Inject 42 Unit(s) Subcutaneous TID in addition to sliding scale 12/10/19 22 022 Inactive d/c 36u chlorthalidone 25 mg tablet RxNorm: 205409 Take 1 Tablet(s) Oral QAM every morning 12/10/19 22 023 Inactive pregabalin 50 mg capsule RxNorm: 121101 Take 1 Capsule(s) Oral QAM every morning 11/12/19 22 022 Inactive tetanus-diphtheria toxoids-Td 2 Lf unit-2 Lf unit/0.5 mL IM suspension RxNorm: 139 Take 0.5 Miscellaneous Intramuscular 11/12/19 22 022 Inactive need tdap - nursing to administer upon arrival pregabalin 50 mg capsule RxNorm: 932069 Take 1 Capsule(s) Oral QAM every morning 10/16/19 22 022 Inactive pregabalin 50 mg capsule RxNorm: 715291 Take 1 Capsule(s) Oral QAM every morning 10/16/19 22 022 Inactive pregabalin 50 mg capsule RxNorm: 267891 1 Capsule(s) Oral QAM every morning 10/15/19 22 022 Inactive Shingrix (PF) 50 mcg/0.5 mL intramuscular suspension, kit RxNorm: 9882035 Administer 1/2 Milliliter(s) Intramuscular one time Nursing please administer upon arrival and once administered post a bridge message with date of administration, integrity specialist, expiration date, and lot# so we can update [facility]. 10/09/19 22 022 Inactive shingrix step 1 Shingrix (PF) 50 mcg/0.5 mL intramuscular suspension, kit RxNorm: 5161052 Administer 1/2 Milliliter(s) Intramuscular one time Nursing please administer upon arrival and once administered post a bridge message with date of administration, integrity specialist, expiration date, and lot# so we [...] aspart 100 unit/mL (3 mL) subcutaneous RxNorm: 7771564 Inject 10 Unit(s) Subcutaneous QHS every night at bedtime with nighttime snack 10/08/19 22 Inactive Shingrix (PF) 50 mcg/0.5 mL intramuscular suspension, kit RxNorm: 8816194 ADMINISTER 2-DOSE SERIES PER CDC GUIDELINES 10/08/19 22 022 Active Shingrix (PF) 50 mcg/0.5 mL intramuscular suspension, kit RxNorm: 1461090 ADMINISTER 2-DOSE SERIES PER CDC GUIDELINES 10/08/19 22 022 Inactive Novolog Flexpen U-100 Insulin aspart 100 unit/mL (3 mL) subcutaneous RxNorm: 6929492 Inject 36 Unit(s) Subcutaneous TID in addition to sliding scale 10/08/19 22 022 Inactive cholecalciferol (vitamin D3) 1,250 mcg (50,000 unit) capsule RxNorm: 252749 Take 1 Capsule(s) Oral QW once a week 10/08/19 22 10/30/2 024 Inactive Novofine Autocover 30 gauge x 1/3 needle RxNorm: Use 1 Miscellaneous UD as directed Use 1 needle as directed to administer insulin 5 times a day Dx:E11.42. 10/03/19 22 Inactive ok to substitute with any covered alternative pen needle benzoyl peroxide 10 % topical cleanser RxNorm: 725214 Apply 1 Application Topical QD apply to face, wash rinse and dry once daily (may change to QOD if drying) 08/19/19 22 022 Inactive (%covered by insurance) #60ml refill 11 dx: acne benzoyl peroxide 10 % topical cleanser RxNorm: 475564 Apply 1 Application Topical QD apply to face, wash rinse and dry once daily (may change to QOD if drying) 08/19/19 22 022 Inactive (%covered by insurance) #60ml refill 11 dx: acne benzoyl peroxide 10 % topical cleanser RxNorm: 938708 Apply 1 Application Topical QD apply to face, wash rinse and dry once daily (may change to QOD if drying) 08/19/19 22 022 Inactive (%covered by insurance) #60ml refill 11 dx: acne Lyrica 50 mg capsule RxNorm: 956479 Take 1 Capsule(s) Oral QAM every morning Take 1 capsule by mouth once daily 08/19/19 22 022 Inactive benzoyl peroxide 10 % topical cleanser RxNorm: 330729 Apply 1 Application Topical QD apply to face, wash rinse and dry once daily (may change to QOD if drying) 08/19/19 22 022 Inactive (%covered by insurance) #60ml refill 11 dx: acne Lyrica 100 mg capsule RxNorm: 830447 Take 1 Capsule(s) Oral QHS every night at bedtime Take 1 capsule by mouth once daily at bedtime 08/19/19 22 022 Inactive Lyrica 100 mg capsule RxNorm: 681048 Take 1 Capsule(s) Oral QHS every night at bedtime Take 1 capsule by mouth once daily at bedtime 08/16/19 22 022 Inactive Lyrica 50 mg capsule RxNorm: 164400 Take 1 Capsule(s) Oral QAM every morning Take 1 capsule by mouth once daily 08/16/19 22 022 Inactive Levemir FlexTouch U-100 Insulin 100 unit/mL (3 mL) subcutaneous pen RxNorm: 036928 Inject 86 Unit(s) Subcutaneous BID 08/05/19 22 022 Inactive d/c 83units BID Lyrica 100 mg capsule RxNorm: 783705 Take 1 Capsule(s) Oral QHS every night at bedtime Take 1 capsule by mouth once daily at bedtime 07/14/19 22 022 Inactive Lyrica 50 mg capsule RxNorm: 934444 Take 1 Capsule(s) Oral QAM every morning Take 1 capsule by mouth once daily 07/14/19 22 022 Inactive Levemir FlexTouch U-100 Insulin 100 unit/mL (3 mL) subcutaneous pen RxNorm: 016490 Inject 83 Unit(s) Subcutaneous BID 07/08/19 22 [...] test strip hydralazine 50 mg tablet RxNorm: 003411 Take 1 Tablet(s) Oral QID 05/05/20 21 022 Inactive venlafaxine ER 225 mg tablet,extended release 24 hr RxNorm: 919323 Take 1 Tablet(s) Oral QD 05/05/20 Inactive venlafaxine ER 225 mg tablet,extended release 24 hr RxNorm: 678841 Take 1 Tablet(s) Oral QD 05/05/20 022 Inactive isosorbide mononitrate ER 30 mg tablet,extended release 24 hr RxNorm: 067541 Take 1 Tablet(s) Oral QD 05/05/20 024 Inactive hydralazine 50 mg tablet RxNorm: 015091 Take 1 Tablet(s) Oral QID 05/05/20 21 Inactive aspirin 81 mg tablet,delayed release RxNorm: 026610 Take 1 Tablet(s) Oral QD 03/31/20 022 Inactive Vitamin D2 1,250 mcg (50,000 unit) capsule RxNorm: 1316267 Take 1 Capsule(s) Oral QW once a week x 12 weeks 03/31/20 022 Inactive Vitamin D2 1,250 mcg (50,000 unit) capsule RxNorm: 9050676 Take 1 Capsule(s) Oral QW once a week 03/31/20 021 Inactive Zetia 10 mg tablet RxNorm: 039459 Take 1 Tablet(s) Oral QD 03/31/20 21 024 Inactive Zetia 10 mg tablet RxNorm: 026592 Take 1 Tablet(s) Oral QD 03/31/20 021 Inactive hydralazine 25 mg tablet RxNorm: 694438 Take 1 Tablet(s) Oral QID 03/31/20 021 Inactive hydralazine 25 mg tablet RxNorm: 977754 Take 1 Tablet(s) Oral QID 03/31/20 021 Inactive hydralazine 10 mg tablet RxNorm: 155431 Take 1 Tablet(s) Oral QID 03/03/20 021 Inactive cephalexin 500 mg tablet RxNorm: 935609 Take 1 Tablet(s) Oral QID 02/27/20 021 Inactive cephalexin 500 mg tablet RxNorm: 660511 Take 1 Tablet(s) Oral QID 02/27/20 021 Inactive lisinopril 40 mg tablet RxNorm: 572227 Take 1 Tablet(s) Oral QD 02/11/20 023 Inactive Eliquis 5 mg tablet RxNorm: 5908358 Take 1 Tablet(s) Oral BID 01/05/20 025 Inactive Eliquis 5 mg tablet RxNorm: 7128097 Take 2 Tablet(s) Oral QD 01/01/20 021 Inactive Lyrica 50 mg capsule RxNorm: 824966 Take 1 Capsule(s) Oral QAM every morning 12/24/19 021 Inactive Lyrica 100 mg capsule RxNorm: 146495 Take 1 Capsule(s) Oral QHS every night at bedtime 12/24/19 021 Inactive clotrimazole 1 % topical cream RxNorm: 218877 Apply to right foot and toes Topical BID 12/04/19 21 023 Inactive metoprolol succinate ER 200 mg tablet,extended release 24 hr RxNorm: 851669 Take 1 Tablet(s) Oral QD 12/04/19 023 Inactive ciprofloxacin 500 mg tablet RxNorm: 899150 Take 1 Tablet(s) Oral QD 11/30/19 21 021 Inactive DX ofloxacin otic drops Accu-Chek Guide test strips RxNorm: USE 1 TO CHECK GLUCOSE 4 TIMES DAILY AND NEEDED 11/15/19 21 023 Inactive Blood Glucose Test strips RxNorm: Use 1 Test Strip QID at PRN 11/05/19 21 023 Inactive E11.42 lisinopril 30 mg tablet RxNorm: 449490 Take 1 Tablet(s) Oral QD 10/30/19 21 021 Inactive lisinopril 20 mg tablet RxNorm: 123334 Take 1 Tablet(s) Oral QD 10/23/19 21 021 Inactive lisinopril 20 mg tablet RxNorm: 136959 Take 1 Tablet(s) Oral QD 10/23/19 21 021 Inactive lisinopril 10 mg tablet RxNorm: 846331 Take 1 Tablet(s) Oral QD 10/02/19 21 021 Inactive icosapent ethyl 1 gram capsule RxNorm: 9400708 Take 2 Capsule(s) (2 gm) Oral BID with meals 09/12/19 21 024 Inactive Okay to dispense one 2gm tab if you have that available. icosapent ethyl 1 gram capsule RxNorm: 8722628 Take 2 Capsule(s) Oral BID 09/12/19 21 021 Inactive Okay to dispense one 2gm tab if you have that available. amlodipine 10 mg tablet RxNorm: 940813 Take 1 Tablet(s) Oral QD 09/04/19 21 021 Inactive aspirin 81 mg tablet,delayed release RxNorm: 083976 Take 1 Tablet(s) Oral QD 09/04/19 21 021 Inactive Levemir FlexTouch U-100 Insulin 100 unit/mL (3 mL) subcutaneous pen RxNorm: 568672 Inject 150 Unit(s) Subcutaneous BID 09/04/19 21 022 Inactive venlafaxine ER 150 mg tablet,extended release 24 hr RxNorm: 954607 Take 1 Tablet(s) Oral QD 09/04/19 21 021 Inactive clotrimazole-betame thasone 1 %-0.05 % topical cream RxNorm: 149053 Apply to rash on red area on left abdomen/chest Topical BID 08/10/19 21 021 Inactive amlodipine 5 mg tablet RxNorm: 257562 Take 1 Tablet(s) Oral QD 07/31/19 21 04/19/2 021 Inactive cephalexin 500 mg tablet RxNorm: 683153 Take 1 Tablet(s) Oral BID BID - Twice Daily 07/31/19 21 021 Inactive Start 08/01/20 pantoprazole 40 mg tablet,delayed release RxNorm: 076941 Take 1 Tablet(s) Oral QAM every morning 07/08/19 025 Inactive clopidogrel 75 mg tablet RxNorm: 986834 Take 1 Tablet(s) Oral QD 07/08/19 021 Inactive Blood Glucose Test strips RxNorm: Use 1 Test Strip QID at PRN 07/08/19 Inactive E11.42 senna 8.6 mg tablet RxNorm: 596992 Take 1 Tablet(s) Oral QD 07/08/19 025 Inactive Novolog Flexpen U-100 Insulin aspart 100 unit/mL (3 mL) subcutaneous RxNorm: 8514843 Administer per sliding scale Milliliter(s) Subcutaneous TID 151-200: 10 u; 201-250: 20 u; 251-300: 30 u; 301-350: 40 u; 351-400: 50 u. 07/08/19 022 Inactive lisinopril 5 mg tablet RxNorm: 852628 Take 1 Tablet(s) Oral QD 07/08/19 021 Inactive Novolog Flexpen U-100 Insulin aspart 100 unit/mL (3 mL) subcutaneous RxNorm: 4559492 Inject 85 Unit(s) Subcutaneous TID 07/08/19 022 Inactive pravastatin 80 mg tablet RxNorm: 124522 Take 1 Tablet(s) Oral QHS every night at bedtime 07/08/19 023 Inactive clotrimazole 1 % topical cream RxNorm: 496544 Apply to bilateral groin areas Topical BID 07/08/19 022 Inactive metoprolol succinate ER 200 mg tablet,extended release 24 hr RxNorm: 581809 Take 1 Tablet(s) Oral QD 07/08/19 021 Inactive Vitamin D3 25 mcg (1,000 unit) tablet RxNorm: 659228 Take 1 Tablet(s) Oral QD 07/08/19 021 Inactive isosorbide dinitrate 30 mg tablet RxNorm: 127289 Take 1 Tablet(s) Oral QD 07/08/19 21 021 Inactive carbamazepine 200 mg tablet RxNorm: 894988 Take 1 Tablet(s) Oral BID 07/08/19 21 025 Inactive Levemir FlexTouch U-100 Insulin 100 unit/mL (3 mL) subcutaneous pen RxNorm: 201243 Inject 140 Unit(s) Subcutaneous BID 07/08/19 21 021 Inactive torsemide 20 mg tablet RxNorm: 567313 Take 1 Tablet(s) Oral QD 07/08/19 21 023 Inactive venlafaxine 75 mg tablet RxNorm: 631510 Take 1 Tablet(s) Oral QD 07/08/19 021 Inactive acetaminophen 500 mg tablet RxNorm: 962697 Take 1 Tablet(s) Oral TID as needed for headache 06/18/19 21 021 Inactive acetaminophen 500 mg tablet RxNorm: 599648 Take 1 Tablet(s) Oral TID as needed for headache 06/18/19 021 Inactive Lyrica 100 mg capsule RxNorm: 106633 Take 1 Capsule(s) Oral QHS every night at bedtime 06/11/19 21 021 Inactive Lyrica 50 mg capsule RxNorm: 002094 Take 1 Capsule(s) Oral QAM every morning 06/10/19 21 021 Inactive hydrocortisone 2.5 % topical cream RxNorm: 244545 Apply to bilateral groin creases Topical BID 05/15/20 20 021 Inactive clotrimazole 1 % topical cream RxNorm: 492988 Apply to bilateral groin areas Topical BID 05/15/20 20 021 Inactive Lyrica 50 mg capsule RxNorm: 240303 Take 1 Capsule(s) Oral QAM every morning 05/14/20 20 020 Inactive Lyrica 100 mg capsule RxNorm: 771931 Take 1 Capsule(s) Oral QHS every night [...] Inactive Nystop 100,000 unit/gram topical powder RxNorm: 578673 Apply to abd folds, under breasts and L side of groin Topical BID x 14 days, then BID PRN 04/08/20 20 Inactive dx: yeast dermatitis Lyrica 100 mg capsule RxNorm: 638781 Take 1 Capsule(s) Oral QHS every night at bedtime 03/13/20 20 Inactive Lyrica 50 mg capsule RxNorm: 055464 Take 1 Capsule(s) Oral QAM every morning 03/13/20 20 Inactive ketoconazole 2 % shampoo RxNorm: 730747 Apply Topical two times a week with showers 03/11/20 20 Inactive cholecalciferol (vitamin D3) 50 mcg (2,000 unit) tablet RxNorm: 545030 Take 1 Tablet(s) Oral QD 03/11/20 20 021 Inactive Zetia 10 mg tablet RxNorm: 323767 Take 1 Tablet(s) Oral QD 03/07/20 20 021 Inactive Zetia 10 mg tablet RxNorm: 476960 Take 1 Tablet(s) Oral QD 03/07/20 20 020 Inactive Lyrica 50 mg capsule RxNorm: 377390 Take 1 Capsule(s) Oral QAM every morning 02/15/20 20 Inactive Lyrica 100 mg capsule RxNorm: 365451 Take 1 Capsule(s) Oral QHS every night at bedtime 02/15/20 20 020 Inactive Lyrica 100 mg capsule RxNorm: 562922 Take 1 Capsule(s) Oral QHS every night at bedtime 02/15/20 20 020 Inactive Lyrica 50 mg capsule RxNorm: 001926 Take 1 Capsule(s) Oral QAM every morning 02/15/20 20 020 Inactive loperamide 2 mg capsule RxNorm: 039436 Take 1 Capsule(s) Oral QID as needed 09/06/19 025 Inactive venlafaxine ER 75 mg capsule,extended release 24 hr RxNorm: 577743 Take 3 Capsule(s) Oral QD 06/12/19 023 Inactive polyethylene glycol 3350 17 gram/dose oral powder RxNorm: 721333 Take 17=1 capful Gram(s) Oral BID as needed mix with 4-8oz of liquid 06/12/19 024 Inactive icosapent ethyl 1 gram capsule RxNorm: 4712874 Take 2 Capsule(s) (2 gm) Oral BID with meals 10/07/19 23 023 Inactive Okay to dispense one 2gm tab if you have that available. Levemir FlexTouch U-100 Insulin 100 unit/mL (3 mL) subcutaneous pen RxNorm: 859986 Inject 80 Unit(s) Subcutaneous BID 07/14/19 23 023 Inactive metoprolol succinate ER 200 mg tablet,extended release 24 hr RxNorm: 967790 Take 1 Tablet(s) Oral QD 08/12/19 23 025 Inactive hydralazine 50 mg tablet RxNorm: 788722 Take 1 Tablet(s) Oral QID 08/12/19 025 Inactive Soft Touch Lancets RxNorm: miscellaneous 03/04/20 24 025 Inactive Novolog Flexpen U-100 Insulin aspart 100 unit/mL (3 mL) subcutaneous RxNorm: 0503386 Insert 30 Unit(s) Subcutaneous TID with meals [...] Planned Activity Notes Codes Status Date Referral: [facility] [address] [id number] [place] Referral Appointment Scheduled 10/20/2024 Referral: [facility]/Endocrinology WPtel: [address] [place], [place] [id number] [place] Referral No Records Received 07/10/2024 Referral: [facility] WPtel: [phone] [id number] [place] Referral Records Received 09/21/2022 Referral: [facility] WPtel: [address] [id number] [place] Referral Completed 05/28/2021 Referral: General Cardiology [...] Sister Jyotsna involved in his care cell# [phone] Guardian: Giulia (tapan met in person 09/01/21), now has Lexii (same group as giulia)AWV 02.08.2024. Lab Schedule: /September*September (CBC with diff, CMP, A1c) March: (CBC, CMP, A1c, Lipids, VitD)10.15.2023: CBC, CMP Na 139, K2.6L, creat 1.45H, eGFR 54L, BG 513H, A1c, VitD 32. 6.: BMP Na 140, K3.7, BG 397 H. BUN 24H, Creat 1.09, eGFR 76L. 11.03.2023: ER labs CBC, CMP K 3.9 Creat [...] appointment 05.26.2024 with Jessa Webster MD at [facility]. Start Pioglitazone 15 mg QD. Stop Basaglar insulin. Increase Ozempic 2 mg once wkly. Continue Humalin R U-500 100 units with meals TID. FOLLOW UP 2 MONTHS. If BG >400 add 50 units to next scheduled dose of Humalin R U 500 insulin 06/12/2024
--- OUTSIDE RECORDS SUMMARY | 2024-10-19 19:56 | XMS_ITS | CCD ---
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 144871 Take 1 Tablet(s) Oral QID 05/05/20 21 Inactive venlafaxine ER 225 mg tablet,extended release 24 hr RxNorm: 347739 Take 1 Tablet(s) Oral QD 05/05/20 Inactive venlafaxine ER 225 mg tablet,extended release 24 hr RxNorm: 934597 Take 1 Tablet(s) Oral QD 05/05/20 022 Inactive isosorbide mononitrate ER 30 mg tablet,extended release 24 hr RxNorm: 765168 Take 1 Tablet(s) Oral QD 05/05/20 024 Inactive hydralazine 50 mg tablet RxNorm: 426053 Take 1 Tablet(s) Oral QID 05/05/20 21 Inactive aspirin 81 mg tablet,delayed release RxNorm: 886095 Take 1 Tablet(s) Oral QD 03/31/20 022 Inactive Vitamin D2 1,250 mcg (50,000 unit) capsule RxNorm: 1536270 Take 1 Capsule(s) Oral QW once a week x 12 weeks 03/31/20 022 Inactive Vitamin D2 1,250 mcg (50,000 unit) capsule RxNorm: 1047612 Take 1 Capsule(s) Oral QW once a week 03/31/20 021 Inactive Zetia 10 mg tablet RxNorm: 568661 Take 1 Tablet(s) Oral QD 03/31/20 21 024 Inactive Zetia 10 mg tablet RxNorm: 387679 Take 1 Tablet(s) Oral QD 03/31/20 021 Inactive hydralazine 25 mg tablet RxNorm: 366751 Take 1 Tablet(s) Oral QID 03/31/20 021 Inactive hydralazine 25 mg tablet RxNorm: 640303 Take 1 Tablet(s) Oral QID 03/31/20 021 Inactive hydralazine 10 mg tablet RxNorm: 415305 Take 1 Tablet(s) Oral QID 03/03/20 021 Inactive cephalexin 500 mg tablet RxNorm: 522126 Take 1 Tablet(s) Oral QID 02/27/20 021 Inactive cephalexin 500 mg tablet RxNorm: 116533 Take 1 Tablet(s) Oral QID 02/27/20 021 Inactive lisinopril 40 mg tablet RxNorm: 558913 Take 1 Tablet(s) Oral QD 02/11/20 023 Inactive Eliquis 5 mg tablet RxNorm: 3460102 Take 1 Tablet(s) Oral BID 01/05/20 025 Inactive Eliquis 5 mg tablet RxNorm: 4501301 Take 2 Tablet(s) Oral QD 01/01/20 21 021 Inactive Lyrica 50 mg capsule RxNorm: 497287 Take 1 Capsule(s) Oral QAM every morning 12/24/19 021 Inactive Lyrica 100 mg capsule RxNorm: 512395 Take 1 Capsule(s) Oral QHS every night at bedtime 12/24/19 021 Inactive clotrimazole 1 % topical cream RxNorm: 572972 Apply to right foot and toes Topical BID 12/04/19 21 023 Inactive metoprolol succinate ER 200 mg tablet,extended release 24 hr RxNorm: 102694 Take 1 Tablet(s) Oral QD 12/04/19 21 023 Inactive ciprofloxacin 500 mg tablet RxNorm: 691402 Take 1 Tablet(s) Oral QD 11/30/19 21 021 Inactive DX ofloxacin otic drops Accu-Chek Guide test strips RxNorm: USE 1 TO CHECK GLUCOSE 4 TIMES DAILY AND NEEDED 11/15/19 21 023 Inactive Blood Glucose Test strips RxNorm: Use 1 Test Strip QID at PRN 11/05/19 21 023 Inactive E11.42 lisinopril 30 mg tablet RxNorm: 534802 Take 1 Tablet(s) Oral QD 10/30/19 021 Inactive lisinopril 20 mg tablet RxNorm: 082309 Take 1 Tablet(s) Oral QD 10/23/19 21 021 Inactive lisinopril 20 mg tablet RxNorm: 623982 Take 1 Tablet(s) Oral QD 10/23/19 21 021 Inactive lisinopril 10 mg tablet RxNorm: 509621 Take 1 Tablet(s) Oral QD 10/02/19 021 Inactive icosapent ethyl 1 gram capsule RxNorm: 7682439 Take 2 Capsule(s) (2 gm) Oral BID with meals 09/12/19 21 024 Inactive Okay to dispense one 2gm tab if you have that available. icosapent ethyl 1 gram capsule RxNorm: 6788046 Take 2 Capsule(s) Oral BID 09/12/19 21 021 Inactive Okay to dispense one 2gm tab if you have that available. amlodipine 10 mg tablet RxNorm: 317984 Take 1 Tablet(s) Oral QD 09/04/19 21 021 Inactive aspirin 81 mg tablet,delayed release RxNorm: 457233 Take 1 Tablet(s) Oral QD 09/04/19 21 021 Inactive Levemir FlexTouch U-100 Insulin 100 unit/mL (3 mL) subcutaneous pen RxNorm: 939026 Inject 150 Unit(s) Subcutaneous BID 09/04/19 21 022 Inactive venlafaxine ER 150 mg tablet,extended release 24 hr RxNorm: 621189 Take 1 Tablet(s) Oral QD 09/04/19 21 021 Inactive clotrimazole-betame thasone 1 %-0.05 % topical cream RxNorm: 694742 Apply to rash on red area on left abdomen/chest Topical BID 08/10/19 21 021 Inactive amlodipine 5 mg tablet RxNorm: 640758 Take 1 Tablet(s) Oral QD 07/31/19 21 Inactive cephalexin 500 mg tablet RxNorm: 920540 Take 1 Tablet(s) Oral BID BID - Twice Daily 07/31/19 021 Inactive Start 08/01/20 pantoprazole 40 mg tablet,delayed release RxNorm: 369707 Take 1 Tablet(s) Oral QAM every morning 07/08/19 025 Inactive clopidogrel 75 mg tablet RxNorm: 093849 Take 1 Tablet(s) Oral QD 07/08/19 021 Inactive Blood Glucose Test strips RxNorm: Use 1 Test Strip QID at PRN 07/08/19 Inactive E11.42 senna 8.6 mg tablet RxNorm: 944788 Take 1 Tablet(s) Oral QD 07/08/19 025 Inactive Novolog Flexpen U-100 Insulin aspart 100 unit/mL (3 mL) subcutaneous RxNorm: 3214288 Administer per sliding scale Milliliter(s) Subcutaneous TID 151-200: 10 u; 201-250: 20 u; 251-300: 30 u; 301-350: 40 u; 351-400: 50 u. 07/08/19 022 Inactive lisinopril 5 mg tablet RxNorm: 047459 Take 1 Tablet(s) Oral QD 07/08/19 021 Inactive Novolog Flexpen U-100 Insulin aspart 100 unit/mL (3 mL) subcutaneous RxNorm: 4455897 Inject 85 Unit(s) Subcutaneous TID 07/08/19 022 Inactive pravastatin 80 mg tablet RxNorm: 494255 Take 1 Tablet(s) Oral QHS every night at bedtime 07/08/19 023 Inactive clotrimazole 1 % topical cream RxNorm: 922267 Apply to bilateral groin areas Topical BID 07/08/19 21 022 Inactive metoprolol succinate ER 200 mg tablet,extended release 24 hr RxNorm: 571644 Take 1 Tablet(s) Oral QD 07/08/19 021 Inactive Vitamin D3 25 mcg (1,000 unit) tablet RxNorm: 420114 Take 1 Tablet(s) Oral QD 07/08/19 21 021 Inactive isosorbide dinitrate 30 mg tablet RxNorm: 540565 Take 1 Tablet(s) Oral QD 07/08/19 21 021 Inactive carbamazepine 200 mg tablet RxNorm: 009096 Take 1 Tablet(s) Oral BID 07/08/19 21 025 Inactive Levemir FlexTouch U-100 Insulin 100 unit/mL (3 mL) subcutaneous pen RxNorm: 114951 Inject 140 Unit(s) Subcutaneous BID 07/08/19 21 021 Inactive torsemide 20 mg tablet RxNorm: 194381 Take 1 Tablet(s) Oral QD 07/08/19 023 Inactive venlafaxine 75 mg tablet RxNorm: 749393 Take 1 Tablet(s) Oral QD 07/08/19 021 Inactive acetaminophen 500 mg tablet RxNorm: 105734 Take 1 Tablet(s) Oral TID as needed for headache 06/18/19 21 021 Inactive acetaminophen 500 mg tablet RxNorm: 622114 Take 1 Tablet(s) Oral TID as needed for headache 06/18/19 021 Inactive Lyrica 100 mg capsule RxNorm: 890450 Take 1 Capsule(s) Oral QHS every night at bedtime 06/11/19 021 Inactive Lyrica 50 mg capsule RxNorm: 700832 Take 1 Capsule(s) Oral QAM every morning 06/10/19 21 021 Inactive hydrocortisone 2.5 % topical cream RxNorm: 731927 Apply to bilateral groin creases Topical BID 05/15/20 20 021 Inactive clotrimazole 1 % topical cream RxNorm: 890777 Apply to bilateral groin areas Topical BID 05/15/20 20 021 Inactive Lyrica 50 mg capsule RxNorm: 512851 Take 1 Capsule(s) Oral QAM every morning 05/14/20 20 020 Inactive Lyrica 100 mg capsule RxNorm: 651177 Take 1 Capsule(s) Oral QHS every night [...] Inactive Nystop 100,000 unit/gram topical powder RxNorm: 389996 Apply to abd folds, under breasts and L side of groin Topical BID x 14 days, then BID PRN 04/08/20 20 Inactive dx: yeast dermatitis Lyrica 100 mg capsule RxNorm: 670591 Take 1 Capsule(s) Oral QHS every night at bedtime 03/13/20 20 Inactive Lyrica 50 mg capsule RxNorm: 431107 Take 1 Capsule(s) Oral QAM every morning 03/13/20 20 Inactive ketoconazole 2 % shampoo RxNorm: 403323 Apply Topical two times a week with showers 03/11/20 20 Inactive cholecalciferol (vitamin D3) 50 mcg (2,000 unit) tablet RxNorm: 305068 Take 1 Tablet(s) Oral QD 03/11/20 20 Inactive Zetia 10 mg tablet RxNorm: 417951 Take 1 Tablet(s) Oral QD 03/07/20 20 021 Inactive Zetia 10 mg tablet RxNorm: 741889 Take 1 Tablet(s) Oral QD 03/07/20 20 10/22/2 020 Inactive Lyrica 50 mg capsule RxNorm: 603985 Take 1 Capsule(s) Oral QAM every morning 02/15/20 20 020 Inactive Lyrica 100 mg capsule RxNorm: 706333 Take 1 Capsule(s) Oral QHS every night at bedtime 02/15/20 20 Inactive Lyrica 100 mg capsule RxNorm: 025477 Take 1 Capsule(s) Oral QHS every night at bedtime 02/15/20 Inactive Lyrica 50 mg capsule RxNorm: 791909 Take 1 Capsule(s) Oral QAM every morning 02/15/20 Inactive loperamide 2 mg capsule RxNorm: 309484 Take 1 Capsule(s) Oral QID as needed 09/06/19 025 Inactive venlafaxine ER 75 mg capsule,extended release 24 hr RxNorm: 475196 Take 3 Capsule(s) Oral QD 06/12/19 023 Inactive polyethylene glycol 3350 17 gram/dose oral powder RxNorm: 640019 Take 17=1 capful Gram(s) Oral BID as needed mix with 4-8oz of liquid 06/12/19 024 Inactive icosapent ethyl 1 gram capsule RxNorm: 6315597 Take 2 Capsule(s) (2 gm) Oral BID with meals 10/07/19 023 Inactive Okay to dispense one 2gm tab if you have that available. Levemir FlexTouch U-100 Insulin 100 unit/mL (3 mL) subcutaneous pen RxNorm: 607557 Inject 80 Unit(s) Subcutaneous BID 07/14/19 23 023 Inactive metoprolol succinate ER 200 mg tablet,extended release 24 hr RxNorm: 421455 Take 1 Tablet(s) Oral QD 08/12/19 025 Inactive hydralazine 50 mg tablet RxNorm: 459700 Take 1 Tablet(s) Oral QID 08/12/19 025 Inactive Soft Touch Lancets RxNorm: miscellaneous 03/04/20 24 025 Inactive Novolog Flexpen U-100 Insulin aspart 100 unit/mL (3 mL) subcutaneous RxNorm: 2073628 Insert 30 Unit(s) Subcutaneous TID with meals [...] Notes Codes Status Date Referral: [facility] [address] [id number] [facility] App[facility]ment Scheduled 10/20/2024 Referral: [facility]/Endocrinology WPtel: [address] [facility]. , [address] [id number] [place] Referral No Records Received 07/10/2024 Referral: [facility] WPtel: [address], [address] [id number] [place] Referral Records Received 09/21/2022 Referral: [facility] WPtel: [address] [id number] [place] Referral Completed 05/28/2021 Referral: General Cardiology [...] Sister Jyotsna involved in his care cell# [phone] Guardian: Giulia (tapan met in person 09/01/21), [...] appointment 05.26.2024 with Jessa Webster MD at [facility]. Start Pioglitazone 15 mg QD. Stop Basaglar insulin. Increase Ozempic 2 mg once wkly. Continue Humalin R U-500 100 units with meals TID. FOLLOW UP 2 MONTHS. If BG >400 add 50 units to next scheduled dose of Humalin R U 500 insulin 06/12/2024
--- OUTSIDE RECORDS SUMMARY | 2024-10-19 19:57 | XMS_ITS | CCD ---
Author Organization Unknown Care Team Providers Care Emergency Technician Name Role Phone Harrison Durham Primary Care Provider Leona vailable Unavailable Chronic Care Management Unavaila ble Summary Purpose DataExchange Insurance Providers Payer name Policy type / Coverage type Covered democrat ID Effective Begin Date Effective End Date [place] [id number] Unknown Unknown [place] B [id number] Unknown Unknown Family history Sister Brittany Suggs Diagnosis Age At Onset No Family Disease Entered N/A Runs in the family Diagnosis Age At Onset No Known Diseases N/A Sister Blanka Mcduffie Diagnosis Age At Onset No Family Disease Entered N/A Social History Social History Element Codes Description Effec tive Dates Tobacco history SNOMED CT: 274351063 Never smoker 01/16 Sexually Active? Unknown No [...] Mcc 09/03/[address]: 941322488 No Alcohol Consum ption 09/02/2020 Allergies, Adverse Reactions, Alerts Substance Reaction Codes Entered Date Inactivated Date Status * NO KNOWN FOOD ALLERGIES Unknown 07/13/2023 No Inactive Date Active LISINOPRIL RxNorm: 59391 02/12/2020 No Inactive Da te Active Metformin [...] E78. 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: Z79.4 02/10 [...] Instructions nystatin 100,000 unit/gram topical powder RxNorm: 228351 Apply 1 Application Topical BID as needed abdominal/breast /groin folds 05/24/19 25 026 Active pregabalin 100 mg capsule RxNorm: 460294 Take 1 Capsule(s) Oral QAM every morning 05/22/19 25 025 Inactive nystatin 100,000 unit/gram topical powder RxNorm: 419327 Apply 1 Application Topical BID as needed abdominal/breast /groin folds 04/11/20 24 024 Inactive chlorthalidone 25 mg tablet RxNorm: 847336 Take 1 Tablet(s) Oral QAM every morning 04/06/20 24 No Stop Date Active pregabalin 150 mg capsule RxNorm: 320945 Take 1 Capsule(s) Oral QHS every night at bedtime 03/31/20 24 024 Inactive Vascepa 1 gram capsule RxNorm: 5248026 Take 2 Capsule(s) Oral BID 11/ Active rosuvastatin 40 mg tablet RxNorm: 618973 1 TAB ORALLY EVERY EVENING (DX:CORONARY ARTERY DISEASE) 03/28/20 No Stop Date Active venlafaxine ER 75 mg capsule,extended release 24 hr RxNorm: 170786 3 CAPS (225MG) ORALLY DAILY (DX: MOOD DISORDER) 03/28/20 No Stop Date Active pregabalin 100 mg capsule RxNorm: 647681 Take 1 Capsule(s) Oral QAM every morning 03/20/20 Inactive cholecalciferol (vitamin D3) 1,250 mcg (50,000 unit) capsule RxNorm: 000251 Take 1 Capsule(s) Oral QW once a [...] Insulin 100 unit/mL (3 mL) subcutaneous RxNorm: 7511174 Inject 40 Unit(s) Subcutaneous BID 03/07/20 24 025 Inactive Please dispense one month supply. Humulin R U-500 (Concentrated) Insulin 500 unit/mL subcutaneous soln RxNorm: 458913 Inject 100 Unit(s) Subcutaneous AC before meals [...] PRN) to be use with new Accu [place] meter 03/04/20 Inactive ok to substitute with any covered alternative test strip FreeStyle Chema 2 Sensor kit RxNorm: Use UD as directed 03/02/20 Inactive FreeStyle Chema 2 Sensor kit RxNorm: Use UD as directed 03/02/20 Inactive Pen Needle 30 gauge x 516 RxNorm: Pen(s) Use 1 needle as directed TID 03/02/20 Inactive nystatin 100,000 unit/gram topical powder RxNorm: 397904 Apply 1 Application Topical BID as needed [...] (Concentrated) Insulin 500 unit/mL subcutaneous soln RxNorm: 632786 Inject 100 Unit(s) Subcutaneous TID 02/17/20 24 024 Inactive Humulin R U-500 (Concentrated) Insulin 500 unit/mL subcutaneous soln RxNorm: 334479 Inject 100 Unit(s) Subcutaneous TID 02/10/20 24 024 Inactive Basaglar KwikPen U-100 Insulin 100 unit/mL (3 mL) subcutaneous RxNorm: 2546072 Inject 30 Unit(s) Subcutaneous BID 02/10/20 24 024 Inactive Please dispense one month supply. pregabalin 100 mg capsule RxNorm: 776139 Take 1 Capsule(s) Oral QAM every morning 02/07/20 24 Inactive isosorbide mononitrate ER 60 mg tablet,extended release 24 hr RxNorm: 206769 Take 1 Tablet(s) Oral QD 02/01/20 24 025 Active aripiprazole 15 mg tablet RxNorm: 654802 Take 1/2 Tablet(s) Oral QD 02/01/20 24 025 Active torsemide 20 mg tablet RxNorm: 083633 1 TAB ORALLY DAILY (DX: EDEMA) 01/27/20 No Stop Date Active potassium chloride ER 20 mEq tablet,extended release(part/cryst) RxNorm: 9363433 2 TABS (40MEQ) ORALLY TWICE DAILY (DX: HYPOKALEMIA) 01/27/20 025 Inactive cephalexin 500 mg capsule RxNorm: 016430 Take 1 Capsule(s) Oral QID 12/17/19 24 024 Inactive cephalexin 500 mg capsule RxNorm: 344010 Take 1 Capsule(s) Oral QID 12/17/19 24 024 Inactive acetaminophen 500 mg tablet RxNorm: 084857 (MAX APAP:4GM/24HR) Take 1 Tablet(s) Oral TID as needed for pain 12/10/19 24 024 Inactive torsemide 20 mg tablet RxNorm: 525665 Take 1 Tablet(s) Oral QD 10/26/19 24 025 Inactive potassium chloride ER 20 mEq tablet,extended release RxNorm: 317231 Take 2 Tablet(s) Oral BID 10/26/19 24 025 Inactive torsemide 20 mg tablet RxNorm: 714777 Take 1 Tablet(s) Oral QD 10/26/19 24 024 Inactive potassium chloride ER 20 mEq tablet,extended release RxNorm: 19800522 Take 2 Tablet(s) Oral BID 10/26/19 24 024 Inactive Artificial Tears (PF) 0.1 %-0.3 % drops in a dropperette RxNorm: 023645 Apply 1-2 Drop(s) Both eyes BID as needed 09/28/19 24 025 Inactive erythromycin 5 mg/gram (0.5 %) eye ointment RxNorm: 494094 Apply 1 Application Both eyes QHS every night at bedtime Instill ~1 cm ribbon into affected eye 09/28/19 24 024 Inactive Artificial Tears (PF) 0.1 %-0.3 % drops in a dropperette RxNorm: 963338 Apply 1-2 Drop(s) Both eyes BID as needed 09/28/19 24 024 Inactive erythromycin 5 mg/gram (0.5 %) eye ointment RxNorm: 627782 Apply 1 Application Both eyes QHS every night at bedtime Instill ~1 cm ribbon into affected eye 09/28/19 24 024 Inactive acetaminophen 500 mg tablet RxNorm: 256765 (MAX APAP:4GM/24HR) Take 1 Tablet(s) Oral TID as needed for pain 09/24/19 24 024 Inactive carvedilol 25 mg tablet RxNorm: 985982 Take 1 Tablet(s) Oral QD 09/08/19 24 No Stop Date Active pregabalin 100 mg capsule RxNorm: 710809 Take 1 Capsule(s) Oral QAM every morning 09/07/19 24 024 Inactive ezetimibe 10 mg tablet RxNorm: 472547 Take 1 Tablet(s) Oral QD 07/13/19 24 025 Inactive bisacodyl 10 mg rectal suppository RxNorm: 423667 Insert 1 Suppository Rectal QD as needed 07/13/19 24 No Stop Date Active polyethylene glycol 3350 17 gram/dose oral powder RxNorm: 076518 Take 17 Gram(s) Oral BID as needed mix in 4-8ox water 07/13/19 24 025 Inactive ketoconazole 2 % shampoo RxNorm: 818408 Apply 1 Application Topical UD as directed 07/13/19 24 No Stop Date Active Ozempic 1 mg/dose (4 mg/3 mL) subcutaneous pen injector RxNorm: 0471870 Inject 1 Milligram(s) Subcutaneous QW once a week 02/27/20 24 No Stop Date Active Guaifenesin AC 10 mg-100 mg/5 mL oral liquid RxNorm: 940102 Take 10 Milliliter(s) Oral Q4H every four hours as needed 07/13/19 No Stop Date Active ammonium lactate 12 % topical cream RxNorm: 146599 Apply 1 Application Topical BID 07/13/19 24 025 Inactive hydrocortisone 2.5 % topical cream RxNorm: 471101 Apply 1 Application Topical BID as needed 07/13/19 24 No Stop Date Active rosuvastatin 20 mg sprinkle capsule RxNorm: 5135584 Take 1 Capsule(s) Oral QD 07/13/19 24 025 Inactive rosuvastatin 40 mg tablet RxNorm: 427327 Take 1 Tablet(s) Oral QPM every evening 07/13/19 24 024 Inactive aripiprazole 15 mg tablet RxNorm: 704816 Take 1/2 Tablet(s) Oral QD 07/13/19 24 024 Inactive isosorbide mononitrate ER 60 mg tablet,extended release 24 hr RxNorm: 822366 Take 1 Tablet(s) Oral QD 07/13/19 24 024 Inactive Vascepa 1 gram capsule RxNorm: 5708519 Take 2 Capsule(s) Oral BID 07/13/19 24 024 Inactive venlafaxine ER 75 mg capsule,extended release 24 hr RxNorm: 320899 Take 3 Capsule(s) Oral QD 07/13/19 24 024 Inactive Basaglar KwikPen U-100 Insulin 100 unit/mL (3 mL) subcutaneous RxNorm: 9690942 Inject 30U SubQ twice daily 07/07/19 24 024 Inactive Please dispense one month supply. Basaglar KwikPen U-100 Insulin 100 unit/mL (3 mL) subcutaneous RxNorm: 8902322 Inject 30U SubQ twice daily 07/07/19 24 024 Inactive Please dispense one month supply. pregabalin 150 mg capsule RxNorm: 568171 Take 1 Capsule(s) Oral QHS every night at bedtime 07/05/19 24 024 Inactive pregabalin 150 mg capsule RxNorm: 581381 Take 1 Capsule(s) Oral QHS every night at bedtime 07/05/19 024 Inactive polyethylene glycol 3350 17 gram/dose oral powder RxNorm: 515285 Take 1 Packet Oral QD as needed (1 packet = 17g) mix with 4-8oz of liquid 06/15/19 024 Inactive bisacodyl 10 mg rectal suppository RxNorm: 094541 Insert one suppository per rectum once daily as needed for constipation 06/15/19 024 Inactive bisacodyl 10 mg rectal suppository RxNorm: 334684 Insert one suppository per rectum once daily as needed for constipation 06/15/19 024 Inactive pregabalin 100 mg capsule RxNorm: 456254 Take 1 Capsule(s) Oral QAM every morning 04/27/20 024 Inactive Levemir FlexPen 100 unit/mL (3 mL) solution subcutaneous insulin pen RxNorm: 514376 Inject 30 Unit(s) Subcutaneous BID 04/27/20 024 Inactive rosuvastatin 40 mg tablet RxNorm: 721205 Take 1 Tablet(s) Oral QPM every evening 04/16/20 024 Inactive D/C rosuvastatin 20mg venlafaxine ER 75 mg capsule,extended release 24 hr RxNorm: 311087 Take 3 Capsule(s) Oral QD 04/14/20 23 023 Inactive pregabalin 100 mg capsule RxNorm: 563940 Take 1 Capsule(s) Oral QAM every morning [...] strip clotrimazole 1 % topical cream RxNorm: 794810 Take apply topically to abdominal folds twice daily for 14 days 03/12/20 024 Inactive Ozempic 1 mg/dose (4 mg/3 mL) subcutaneous pen injector RxNorm: 7043361 Inject 1 Milligram(s) Subcutaneous QW once a week 03/11/20 023 Inactive rosuvastatin 20 mg tablet RxNorm: 300118 Take 1 Tablet(s) Oral QD 02/26/20 23 023 Inactive d/c pravastatin 80mg Ozempic 1 mg/dose (4 mg/3 mL) subcutaneous pen injector RxNorm: 6629964 Inject 1 Milligram(s) Subcutaneous QW once a week 02/20/20 23 023 Inactive pregabalin 150 mg capsule RxNorm: 224820 Take 1 Capsule(s) Oral HS at bed time 02/19/20 23 023 Inactive pregabalin 100 mg capsule RxNorm: 145360 Take 1 Capsule(s) Oral QAM every morning 02/18/20 023 Inactive venlafaxine ER 75 mg capsule,extended release 24 hr RxNorm: 679522 Take 3 Capsule(s) Oral QD 02/04/20 23 023 Inactive FreeStyle Chema 2 Sensor kit RxNorm: use as directed 02/04/20 023 Inactive FreeStyle Chema 2 Sensor kit RxNorm: use as directed 02/04/20 23 024 Inactive fluconazole 150 mg tablet RxNorm: 999227 Take 1 Tablet(s) Oral on day 3 and on day 6 02/03/20 024 Inactive venlafaxine ER 150 mg capsule,extended release 24 hr RxNorm: 000246 Take 1 Capsule(s) Oral QD 02/03/20 23 023 Inactive chlorthalidone 25 mg tablet RxNorm: 663893 Take 1 Tablet(s) Oral QAM every morning 02/03/20 23 024 Inactive acetaminophen 500 mg tablet RxNorm: 797218 1 TABLET ORALLY 3 TIMES DAILY (MAX APAP:4GM/24HR) 12/15/19 23 023 Inactive clotrimazole 1 % topical cream RxNorm: 564813 apply 1g topically to top of feet and in between toes BID 12/09/19 23 025 Inactive potassium chloride ER 20 mEq tablet,extended release RxNorm: 200210 Take 1 Tablet(s) Oral BID 12/09/19 024 Inactive d/c 20mEq once daily (sent from hospital) nystatin 100,000 unit/gram topical powder RxNorm: 481876 APPLY TO AFFECTED AREAS TOPICALLY 2 TIMES DAILY 11/21/19 23 023 Inactive Nystop 100,000 unit/gram topical powder RxNorm: 337938 Apply to abd folds, under breasts and L side of groin Topical BID x 14 days, then BID PRN 11/20/19 023 Inactive dx: yeast dermatitis [place] Ultra Strength 4 %-30 %-10 % topical cream RxNorm: 561899 Apply 1 Gram(s) Topical QID PRN to feet and legs for neuropathic pain 11/11/19 024 Inactive clotrimazole 1 % topical cream RxNorm: 906237 Apply 1/2 Gram(s) Topical BID Apply to affected areas of groin, periarea, and abdominal topically 2 times daily 11/10/19 023 Inactive hydrocortisone 2.5 % topical cream RxNorm: 404033 Apply 1/2 Gram(s) Topical BID as needed 11/10/19 024 Inactive Levemir FlexPen 100 unit/mL (3 mL) solution subcutaneous insulin pen RxNorm: 466632 Inject 30 Unit(s) Subcutaneous BID 10/07/19 23 023 Inactive Humulin R U-500 (Concentrated) Insulin 500 unit/mL subcutaneous soln RxNorm: 845079 Inject 100 Unit(s) Subcutaneous TID 10/07/19 024 Inactive Ozempic 0.25 mg or 0.5 mg (2 mg/3 mL) subcutaneous pen injector RxNorm: 5183833 Inject 1/2 Milligram(s) Subcutaneous QW once a week 10/07/19 024 Inactive aripiprazole 15 mg tablet RxNorm: 849752 1/2 TAB (7.5MG) ORALLY DAILY (DX:MAJOR DEPRESSIVE DISORDER) 09/23/1923/2 023 Inactive Accu-Chek Guide test strips RxNorm: Use 1 Test Strip QID 09/15/19 23 023 Inactive ok to substitute with any covered alternative test strip Lancets,Thin 28 gauge RxNorm: Use 1 as directed QID 09/15/19 23 023 Inactive torsemide 20 mg tablet RxNorm: 775678 Take 1 Tablet(s) Oral BID 09/09/19 23 024 Inactive d/c once daily dosing carvedilol 25 mg tablet RxNorm: 035269 Take 1 Tablet(s) Oral QD 08/25/19 23 024 Inactive pregabalin 150 mg capsule RxNorm: 839063 1 Capsule(s) Oral HS at bed time 08/18/19 23 023 Inactive pregabalin 100 mg capsule RxNorm: 471121 1 Capsule(s) Oral QAM every morning 08/18/19 23 023 Inactive carvedilol 25 mg tablet RxNorm: 571213 1 Tablet(s) Oral QD 07/28/19 23 023 Inactive lisinopril 20 mg tablet RxNorm: 650785 Give 1 Tablet(s) Oral QD 07/28/19 23 023 Inactive Lyrica 150 mg capsule RxNorm: 048980 Take 1 Capsule(s) Oral QHS every night at bedtime 07/19/19 23 023 Inactive d/c 100mg dose Diflucan 150 mg tablet RxNorm: 841732 Take 1 Tablet(s) Oral QD repeat on day 3 and 6 07/19/19 23 023 Inactive pregabalin 100 mg capsule RxNorm: 812228 Take 1 Capsule(s) Oral QAM every morning 07/19/19 23 023 Inactive gatifloxacin 0.5 % eye drops RxNorm: 101112 Instill 1 Drop(s) as directed TID Instill 1 drop in to affected eye(s) starting 1 day prior to surgery and continue until gone (do not exceed 4 weeks). 07/13/19 23 023 Inactive carvedilol 25 mg tablet RxNorm: 530800 2 Tablet(s) Oral BID 07/13/19 23 023 Inactive Humulin R Regular U-100 Insulin 100 unit/mL injection solution RxNorm: 387537 85 Unit(s) Injection TID 07/13/19 23 023 Inactive ketorolac 0.5 % eye drops RxNorm: 543284 Instill 1 Drop(s) as directed QID Instill 1 drop into affected eye(s) 4 times daily starting 1 day prior to surgery and continue until gone (do not exceed 4 weeks). 07/13/19 23 023 Inactive Diflucan 150 mg tablet RxNorm: 156064 Take 1 Tablet(s) Oral QD repeat on day 3 and 6 06/30/19 23 023 Inactive Accu-Chek Guide test strips RxNorm: Use 1 Test Strip QID Use 1 test strip to monitor blood glucose 4 times daily and as needed. Dx:E11.42. 06/23/19 23 023 Inactive ok to substitute with any covered alternative test strip dextromethorphan-gu aifenesin 10 mg-100 mg/5 mL oral liquid RxNorm: 031748 Take 10 Milliliter(s) Oral every 4 hours as needed for cough 06/19/19 23 023 Inactive dextromethorphan-gu aifenesin 10 mg-100 mg/5 mL oral liquid RxNorm: 307743 Take 10 Milliliter(s) Oral every 4 hours as needed for cough 06/19/19 23 023 Inactive Lyrica 150 mg capsule RxNorm: 332531 Take 1 Capsule(s) Oral QHS every night at bedtime 06/18/19 23 023 Inactive d/c 100mg dose aripiprazole 15 mg tablet RxNorm: 468117 /2 TAB (7.5MG) ORALLY DAILY (DX:MAJOR DEPRESSIVE DISORDER) 06/05/19 23 023 Inactive pregabalin 100 mg capsule RxNorm: 492757 1 Capsule(s) Oral QAM every morning 06/02/19 23 023 Inactive Banophen 50 mg capsule RxNorm: 3365267 Take 1 Capsule(s) Oral Q6H every 6 hours as needed 05/19/19 23 No Stop Date Active Novolog Flexpen U-100 Insulin aspart 100 unit/mL (3 mL) subcutaneous RxNorm: 8411466 Inject 10 Unit(s) Subcutaneous QHS every night at bedtime with nighttime snack 04/08/20 022 Inactive Novolog Flexpen U-100 Insulin aspart 100 unit/mL (3 mL) subcutaneous RxNorm: 7197343 Inject 42 Unit(s) Subcutaneous TID in addition to sliding scale 04/08/20 Inactive d/c 36u albuterol sulfate HFA 90 mcg/actuation aerosol inhaler RxNorm: 4912436 Take 2 Puff(s) Inhalation Q4H every four hours as needed as needed for SOB, cough, or wheezing 04/07/20 030 Active Banophen 50 mg capsule RxNorm: 1666349 Take 1 Capsule(s) Oral Q6H every 6 hours as needed 04/06/20 023 Inactive diphenhydramine 50 mg tablet RxNorm: 2303436 Take 1 Tablet(s) Oral Q6H every 6 hours as needed 04/06/20 022 Inactive diphenhydramine 50 mg tablet RxNorm: 2917826 1 Tablet(s) Oral Q6H every 6 hours as needed 04/06/20 022 Inactive Abilify 15 mg tablet RxNorm: 332885 1/2 Tablet(s) Oral QD 03/10/20 023 Inactive Shingrix (PF) 50 mcg/0.5 mL intramuscular suspension, kit RxNorm: 1762619 Administer 1/2 Milliliter(s) Intramuscular QD one time shingrix step 2 ( step 1 given 11/04/21) WITH needle - Nursing please administer upon arrival and once administered post a bridge message with date of administration, radiotelegrapher, expiration date, and lot# so we can update [facility] 02/18/20 022 Inactive dispense with needle Shingrix (PF) 50 mcg/0.5 mL intramuscular suspension, kit RxNorm: 3459294 Administer 1/2 Milliliter(s) Intramuscular QD one time shingrix step 2 ( step 1 given 11/04/21) WITH needle - Nursing please administer upon arrival and once administered post a bridge message with date of administration, radiotelegrapher, expiration date, and lot# so we can update [facility] 02/18/20 22 Inactive dispense with needle polyethylene glycol 3350 17 gram/dose oral powder RxNorm: 379724 Take 17=1 capful Gram(s) Oral QD mix with 4-8oz of liquid 01/08/20 22 025 Inactive take this in addition to BID prn order Lyrica 100 mg capsule RxNorm: 818751 Take 1 Capsule(s) Oral QAM every morning 01/08/20 22 022 Inactive d/c 50mg dose acetaminophen 500 mg tablet RxNorm: 478695 Take 1 Tablet(s) Oral TID 01/08/20 22 022 Inactive d/c PRN order Lyrica 150 mg capsule RxNorm: 102785 Take 1 Capsule(s) Oral QHS every night at bedtime 01/08/20 22 023 Inactive d/c 100mg dose Abilify 5 mg tablet RxNorm: 008911 Take 1 Tablet(s) Oral QD take 1 tab po QD #30 refill 5 dx: MDD 12/12/19 22 022 Inactive Abilify 5 mg tablet RxNorm: 505450 Take 1 Tablet(s) Oral QD take 1 tab po QD #30 refill 5 dx: MDD 12/12/19 22 022 Inactive Novolog Flexpen U-100 Insulin aspart 100 unit/mL (3 mL) subcutaneous RxNorm: 9539137 Inject 42 Unit(s) Subcutaneous TID in addition to sliding scale 12/10/19 22 022 Inactive d/c 36u chlorthalidone 25 mg tablet RxNorm: 800813 Take 1 Tablet(s) Oral QAM every morning 12/10/19 22 023 Inactive pregabalin 50 mg capsule RxNorm: 180444 Take 1 Capsule(s) Oral QAM every morning 11/12/19 22 022 Inactive tetanus-diphtheria toxoids-Td 2 Lf unit-2 Lf unit/0.5 mL IM suspension RxNorm: 139 Take 0.5 Miscellaneous Intramuscular 11/12/19 22 022 Inactive need tdap - nursing to administer upon arrival pregabalin 50 mg capsule RxNorm: 729878 Take 1 Capsule(s) Oral QAM every morning 10/16/19 Inactive pregabalin 50 mg capsule RxNorm: 124831 Take 1 Capsule(s) Oral QAM every morning 10/16/19 22 022 Inactive pregabalin 50 mg capsule RxNorm: 723930 1 Capsule(s) Oral QAM every morning 10/15/19 22 022 Inactive Shingrix (PF) 50 mcg/0.5 mL intramuscular suspension, kit RxNorm: 6791397 Administer 1/2 Milliliter(s) Intramuscular one time Nursing please administer upon arrival and once administered post a bridge message with date of administration, radiotelegrapher, expiration date, and lot# so we can update [facility]. 10/09/19 22 022 Inactive shingrix step 1 Shingrix (PF) 50 mcg/0.5 mL intramuscular suspension, kit RxNorm: 4482511 Administer 1/2 Milliliter(s) Intramuscular one time Nursing please administer upon arrival and once administered post a bridge message with date of administration, radiotelegrapher, expiration date, and lot# so we can [...] aspart 100 unit/mL (3 mL) subcutaneous RxNorm: 3839587 Inject 10 Unit(s) Subcutaneous QHS every night at bedtime with nighttime snack 10/08/19 22 022 Inactive Shingrix (PF) 50 mcg/0.5 mL intramuscular suspension, kit RxNorm: 2550588 ADMINISTER 2-DOSE SERIES PER CDC GUIDELINES 10/08/19 22 022 Active Shingrix (PF) 50 mcg/0.5 mL intramuscular suspension, kit RxNorm: 3849996 ADMINISTER 2-DOSE SERIES PER CDC GUIDELINES 10/08/19 22 022 Inactive Novolog Flexpen U-100 Insulin aspart 100 unit/mL (3 mL) subcutaneous RxNorm: 4542772 Inject 36 Unit(s) Subcutaneous TID in addition to sliding scale 10/08/19 22 Inactive cholecalciferol (vitamin D3) 1,250 mcg (50,000 unit) capsule RxNorm: 457694 Take 1 Capsule(s) Oral QW once a week 10/08/19 Inactive Novofine Autocover 30 gauge x 1/3 needle RxNorm: Use 1 Miscellaneous UD as directed Use 1 needle as directed to administer insulin 5 times a day Dx:E11.42. 10/03/19 Inactive ok to substitute with any covered alternative pen needle benzoyl peroxide 10 % topical cleanser RxNorm: 968219 Apply 1 Application Topical QD apply to face, wash rinse and dry once daily (may change to QOD if drying) 08/19/19 022 Inactive (%covered by insurance) #60ml refill 11 dx: acne benzoyl peroxide 10 % topical cleanser RxNorm: 648363 Apply 1 Application Topical QD apply to face, wash rinse and dry once daily (may change to QOD if drying) 08/19/19 22 022 Inactive (%covered by insurance) #60ml refill 11 dx: acne benzoyl peroxide 10 % topical cleanser RxNorm: 496790 Apply 1 Application Topical QD apply to face, wash rinse and dry once daily (may change to QOD if drying) 08/19/19 22 022 Inactive (%covered by insurance) #60ml refill 11 dx: acne Lyrica 50 mg capsule RxNorm: 998694 Take 1 Capsule(s) Oral QAM every morning Take 1 capsule by mouth once daily 08/19/19 22 022 Inactive benzoyl peroxide 10 % topical cleanser RxNorm: 661705 Apply 1 Application Topical QD apply to face, wash rinse and dry once daily (may change to QOD if drying) 08/19/19 22 Inactive (%covered by insurance) #60ml refill 11 dx: acne Lyrica 100 mg capsule RxNorm: 620647 Take 1 Capsule(s) Oral QHS every night at bedtime Take 1 capsule by mouth once daily at bedtime 08/19/19 22 022 Inactive Lyrica 100 mg capsule RxNorm: 545351 Take 1 Capsule(s) Oral QHS every night at bedtime Take 1 capsule by mouth once daily at bedtime 08/16/19 22 022 Inactive Lyrica 50 mg capsule RxNorm: 734269 Take 1 Capsule(s) Oral QAM every morning Take 1 capsule by mouth once daily 08/16/19 22 022 Inactive Levemir FlexTouch U-100 Insulin 100 unit/mL (3 mL) subcutaneous pen RxNorm: 616230 Inject 86 Unit(s) Subcutaneous BID 08/05/19 22 022 Inactive d/c 83units BID Lyrica 100 mg capsule RxNorm: 553076 Take 1 Capsule(s) Oral QHS every night at bedtime Take 1 capsule by mouth once daily at bedtime 07/14/19 22 022 Inactive Lyrica 50 mg capsule RxNorm: 678260 Take 1 Capsule(s) Oral QAM every morning Take 1 capsule by mouth once daily 07/14/19 22 022 Inactive Levemir FlexTouch U-100 Insulin 100 unit/mL (3 mL) subcutaneous pen RxNorm: 494201 Inject 83 Unit(s) Subcutaneous BID 07/08/19 22 [...] test strip hydralazine 50 mg tablet RxNorm: 597721 Take 1 Tablet(s) Oral QID 05/05/20 21 022 Inactive venlafaxine ER 225 mg tablet,extended release 24 hr RxNorm: 960722 Take 1 Tablet(s) Oral QD 05/05/20 21 021 Inactive venlafaxine ER 225 mg tablet,extended release 24 hr RxNorm: 732283 Take 1 Tablet(s) Oral QD 05/05/20 21 022 Inactive isosorbide mononitrate ER 30 mg tablet,extended release 24 hr RxNorm: 673198 Take 1 Tablet(s) Oral QD 05/05/20 21 024 Inactive hydralazine 50 mg tablet RxNorm: 995317 Take 1 Tablet(s) Oral QID 05/05/20 21 021 Inactive aspirin 81 mg tablet,delayed release RxNorm: 738705 Take 1 Tablet(s) Oral QD 03/31/20 21 022 Inactive Vitamin D2 1,250 mcg (50,000 unit) capsule RxNorm: 1564704 Take 1 Capsule(s) Oral QW once a week x 12 weeks 03/31/20 022 Inactive Vitamin D2 1,250 mcg (50,000 unit) capsule RxNorm: 3805951 Take 1 Capsule(s) Oral QW once a week 03/31/20 021 Inactive Zetia 10 mg tablet RxNorm: 084314 Take 1 Tablet(s) Oral QD 03/31/20 024 Inactive Zetia 10 mg tablet RxNorm: 556818 Take 1 Tablet(s) Oral QD 03/31/20 021 Inactive hydralazine 25 mg tablet RxNorm: 159135 Take 1 Tablet(s) Oral QID 03/31/20 021 Inactive hydralazine 25 mg tablet RxNorm: 102034 Take 1 Tablet(s) Oral QID 03/31/20 021 Inactive hydralazine 10 mg tablet RxNorm: 964670 Take 1 Tablet(s) Oral QID 03/03/20 021 Inactive cephalexin 500 mg tablet RxNorm: 371296 Take 1 Tablet(s) Oral QID 02/27/20 021 Inactive cephalexin 500 mg tablet RxNorm: 513714 Take 1 Tablet(s) Oral QID 02/27/20 021 Inactive lisinopril 40 mg tablet RxNorm: 827753 Take 1 Tablet(s) Oral QD 02/11/20 023 Inactive Eliquis 5 mg tablet RxNorm: 1141077 Take 1 Tablet(s) Oral BID 01/05/20 21 025 Inactive Eliquis 5 mg tablet RxNorm: 3201525 Take 2 Tablet(s) Oral QD 01/01/20 21 021 Inactive Lyrica 50 mg capsule RxNorm: 333109 Take 1 Capsule(s) Oral QAM every morning 12/24/19 21 021 Inactive Lyrica 100 mg capsule RxNorm: 467567 Take 1 Capsule(s) Oral QHS every night at bedtime 12/24/19 21 021 Inactive clotrimazole 1 % topical cream RxNorm: 048634 Apply to right foot and toes Topical BID 12/04/19 21 023 Inactive metoprolol succinate ER 200 mg tablet,extended release 24 hr RxNorm: 592842 Take 1 Tablet(s) Oral QD 12/04/19 21 023 Inactive ciprofloxacin 500 mg tablet RxNorm: 404844 Take 1 Tablet(s) Oral QD 11/30/19 21 021 Inactive DX ofloxacin otic drops Accu-Chek Guide test strips RxNorm: USE 1 TO CHECK GLUCOSE 4 TIMES DAILY AND NEEDED 11/15/19 21 023 Inactive Blood Glucose Test strips RxNorm: Use 1 Test Strip QID at PRN 11/05/19 21 023 Inactive E11.42 lisinopril 30 mg tablet RxNorm: 708224 Take 1 Tablet(s) Oral QD 10/30/19 021 Inactive lisinopril 20 mg tablet RxNorm: 562987 Take 1 Tablet(s) Oral QD 10/23/19 021 Inactive lisinopril 20 mg tablet RxNorm: 477174 Take 1 Tablet(s) Oral QD 10/23/19 021 Inactive lisinopril 10 mg tablet RxNorm: 879502 Take 1 Tablet(s) Oral QD 10/02/19 021 Inactive icosapent ethyl 1 gram capsule RxNorm: 7419145 Take 2 Capsule(s) (2 gm) Oral BID with meals 09/12/19 024 Inactive Okay to dispense one 2gm tab if you have that available. icosapent ethyl 1 gram capsule RxNorm: 0483782 Take 2 Capsule(s) Oral BID 09/12/19 21 021 Inactive Okay to dispense one 2gm tab if you have that available. amlodipine 10 mg tablet RxNorm: 854860 Take 1 Tablet(s) Oral QD 09/04/19 21 021 Inactive aspirin 81 mg tablet,delayed release RxNorm: 128769 Take 1 Tablet(s) Oral QD 09/04/19 21 021 Inactive Levemir FlexTouch U-100 Insulin 100 unit/mL (3 mL) subcutaneous pen RxNorm: 773437 Inject 150 Unit(s) Subcutaneous BID 09/04/19 022 Inactive venlafaxine ER 150 mg tablet,extended release 24 hr RxNorm: 804379 Take 1 Tablet(s) Oral QD 09/04/19 021 Inactive clotrimazole-betame thasone 1 %-0.05 % topical cream RxNorm: 742608 Apply to rash on red area on left abdomen/chest Topical BID 08/10/19 21 Inactive amlodipine 5 mg tablet RxNorm: 664993 Take 1 Tablet(s) Oral QD 07/31/19 Inactive cephalexin 500 mg tablet RxNorm: 986390 Take 1 Tablet(s) Oral BID BID - Twice Daily 07/31/19 021 Inactive Start 08/01/20 pantoprazole 40 mg tablet,delayed release RxNorm: 084489 Take 1 Tablet(s) Oral QAM every morning 07/08/19 025 Inactive senna 8.6 mg tablet RxNorm: 471468 Take 1 Tablet(s) Oral QD 07/08/19 025 Inactive carbamazepine 200 mg tablet RxNorm: 304237 Take 1 Tablet(s) Oral BID 07/08/19 025 Inactive clopidogrel 75 mg tablet RxNorm: 599023 Take 1 Tablet(s) Oral QD 07/08/19 021 Inactive Blood Glucose Test strips RxNorm: Use 1 Test Strip QID at PRN 07/08/19 021 Inactive E11.42 Novolog Flexpen U-100 Insulin aspart 100 unit/mL (3 mL) subcutaneous RxNorm: 8076646 Administer per sliding scale Milliliter(s) Subcutaneous TID 151-200: 10 u; 201-250: 20 u; 251-300: 30 u; 301-350: 40 u; 351-400: 50 u. 07/08/19 21 022 Inactive lisinopril 5 mg tablet RxNorm: 010302 Take 1 Tablet(s) Oral QD 07/08/19 021 Inactive Novolog Flexpen U-100 Insulin aspart 100 unit/mL (3 mL) subcutaneous RxNorm: 3215256 Inject 85 Unit(s) Subcutaneous TID 07/08/19 022 Inactive pravastatin 80 mg tablet RxNorm: 540612 Take 1 Tablet(s) Oral QHS every night at bedtime 07/08/19 023 Inactive clotrimazole 1 % topical cream RxNorm: 941505 Apply to bilateral groin areas Topical BID 07/08/19 022 Inactive metoprolol succinate ER 200 mg tablet,extended release 24 hr RxNorm: 711764 Take 1 Tablet(s) Oral QD 07/08/19 021 Inactive Vitamin D3 25 mcg (1,000 unit) tablet RxNorm: 586782 Take 1 Tablet(s) Oral QD 07/08/19 021 Inactive isosorbide dinitrate 30 mg tablet RxNorm: 876582 Take 1 Tablet(s) Oral QD 07/08/19 021 Inactive Levemir FlexTouch U-100 Insulin 100 unit/mL (3 mL) subcutaneous pen RxNorm: 384892 Inject 140 Unit(s) Subcutaneous BID 07/08/19 21 021 Inactive torsemide 20 mg tablet RxNorm: 099225 Take 1 Tablet(s) Oral QD 07/08/19 023 Inactive venlafaxine 75 mg tablet RxNorm: 561634 Take 1 Tablet(s) Oral QD 07/08/19 021 Inactive acetaminophen 500 mg tablet RxNorm: 737112 Take 1 Tablet(s) Oral TID as needed for headache 06/18/19 21 021 Inactive acetaminophen 500 mg tablet RxNorm: 734299 Take 1 Tablet(s) Oral TID as needed for headache 06/18/19 021 Inactive Lyrica 100 mg capsule RxNorm: 224867 Take 1 Capsule(s) Oral QHS every night at bedtime 06/11/19 21 021 Inactive Lyrica 50 mg capsule RxNorm: 563598 Take 1 Capsule(s) Oral QAM every morning 06/10/19 21 021 Inactive hydrocortisone 2.5 % topical cream RxNorm: 153188 Apply to bilateral groin creases Topical BID 05/15/20 20 021 Inactive clotrimazole 1 % topical cream RxNorm: 536972 Apply to bilateral groin areas Topical BID 05/15/20 20 021 Inactive Lyrica 50 mg capsule RxNorm: 798149 Take 1 Capsule(s) Oral QAM every morning 05/14/20 20 020 Inactive Lyrica 100 mg capsule RxNorm: 580771 Take 1 Capsule(s) Oral QHS every night [...] Inactive Nystop 100,000 unit/gram topical powder RxNorm: 841406 Apply to abd folds, under breasts and L side of groin Topical BID x 14 days, then BID PRN 04/08/20 20 020 Inactive dx: yeast dermatitis Lyrica 100 mg capsule RxNorm: 410899 Take 1 Capsule(s) Oral QHS every night at bedtime 03/13/20 20 020 Inactive Lyrica 50 mg capsule RxNorm: 289337 Take 1 Capsule(s) Oral QAM every morning 03/13/20 20 020 Inactive ketoconazole 2 % shampoo RxNorm: 203166 Apply Topical two times a week with showers 03/11/20 024 Inactive cholecalciferol (vitamin D3) 50 mcg (2,000 unit) tablet RxNorm: 005964 Take 1 Tablet(s) Oral QD 03/11/20 021 Inactive Zetia 10 mg tablet RxNorm: 197599 Take 1 Tablet(s) Oral QD 03/07/20 021 Inactive Zetia 10 mg tablet RxNorm: 711698 Take 1 Tablet(s) Oral QD 03/07/20 Inactive Lyrica 50 mg capsule RxNorm: 192356 Take 1 Capsule(s) Oral QAM every morning 02/15/20 20 Inactive Lyrica 100 mg capsule RxNorm: 629518 Take 1 Capsule(s) Oral QHS every night at bedtime 02/15/20 20 Inactive Lyrica 100 mg capsule RxNorm: 929177 Take 1 Capsule(s) Oral QHS every night at bedtime 02/15/20 Inactive Lyrica 50 mg capsule RxNorm: 548274 Take 1 Capsule(s) Oral QAM every morning 02/15/20 20 Inactive metoprolol succinate ER 200 mg tablet,extended release 24 hr RxNorm: 406305 Take 1 Tablet(s) Oral QD 08/12/19 025 Inactive loperamide 2 mg capsule RxNorm: 680305 Take 1 Capsule(s) Oral QID as needed 09/06/19 025 Inactive hydralazine 50 mg tablet RxNorm: 539241 Take 1 Tablet(s) Oral QID 08/12/19 025 Inactive Soft Touch Lancets RxNorm: miscellaneous 03/04/20 24 025 Inactive venlafaxine ER 75 mg capsule,extended release 24 hr RxNorm: 499917 Take 3 Capsule(s) Oral QD 06/12/19 22 023 Inactive polyethylene glycol 3350 17 gram/dose oral powder RxNorm: 135119 Take 17=1 capful Gram(s) Oral BID as needed mix with 4-8oz of liquid 06/12/19 22 024 Inactive icosapent ethyl 1 gram capsule RxNorm: 8943795 Take 2 Capsule(s) (2 gm) Oral BID with meals 10/07/19 23 023 Inactive Okay to dispense one 2gm tab if you have that available. Levemir FlexTouch U-100 Insulin 100 unit/mL (3 mL) subcutaneous pen RxNorm: 001111 Inject 80 Unit(s) Subcutaneous BID 07/14/19 23 023 Inactive Novolog Flexpen U-100 Insulin aspart 100 unit/mL (3 mL) subcutaneous RxNorm: 3500599 Insert 30 Unit(s) Subcutaneous TID with meals [...] Notes Codes Status Date Referral: [facility] [address] [id number] [place] Referral Appointment Scheduled 10/20/2024 Referral: [facility]inology WPtel: [address] [facility] [address] [id number] [place] Referral No Records Received 07/10/2024 Referral: [facility]: [address] [id number] [place] Referral Records Received 09/21/2022 Referral: [facility] WPtel: [address] [facility] [address] [id number] [place] Referral Completed 05/28/2021 Referral: General Cardiology [...] Sister Jyotsna involved in his care cell# [phone] Guardian: Giulia (tapan met in person 09/01/21), [...]
== END 2024-10-19 19:11 | disposition home or self-care (01) ==
PROVIDERS: Emergency Provider Emergency Medicine
DX: R68.84 Jaw pain (principal); K08.89 Other specified disorders of teeth and supporting structures; E10.9 Type 1 diabetes mellitus without complications
CPT/HCPCS: 36415; 82947; 99282; 99283; 99284; A9270

== ENCOUNTER 2024-10-19 19:03 | Outpatient (CLI) | payer MEDICARE, MEDICAID, SELFPAY | END 2024-10-19 19:04 | disposition home or self-care (01) | LOC: AMB 10-20 10:18 | PROVIDERS: Visit Provider Family Medicine | DX: R68.84 Jaw pain (principal); K08.89 Other specified disorders of teeth and supporting structures | CPT/HCPCS: A0425; A0428 ==

== ENCOUNTER 2024-11-10 20:02 | Emergency (ER) | payer MEDICARE, MEDICAID, SELFPAY ==
[2024-11-10 20:05] VITALS: BP 151/64; PULSE 87; RESP 18; TEMP 36.3; O2SAT 97; BMI 65.7
--- OUTSIDE RECORDS SUMMARY | 2024-11-10 20:05 | XMS_ITS | Clinical Summary ---
Author Organization [employer] Address [facility] [place] [address] Care Team Providers Care Student Ministry Pastor Name Role Phone Alan Lopez MD Unavailable [phone] Pcp, No Primary Care Provider Unavailabl e Jessa Webster MD Unavailable [phone] Allergies Active Allergy Reactions Criticality Noted Date Comments Lisinopril Hyperkalemia 01/29/2012 Metformin Chest Pain 12/23/2015 Back pain, arm pain Medications clotrimazole (LOTRIMIN) 1 % creamIndications: Tinea pedis of both feet Apply to feet in am daily and in evening as able 113 Tube 1 12/13/19 16 Active polyethylene glycol (MIRALAX) 17 g powder for solutionIndicatio ns:Constipation Take 17 g by mouth once daily. 30 Packet 4 10/08/19 17 Active acetaminophen (ACETAMINOPHEN PAIN RELIEF) 500 mg tabletIndications :DISH (diffuse idiopathic skeletal hyperostosis) Take 1 tablet by mouth every 6 hours if needed. Takes 1 at noon, 2 in evening and 1 at bedtime. Max acetaminophen dose: 4000mg in 24 hrs. 360 tablet 2 03/18/20 17 Active sennosides (SENNA) 8.6 mg tabletIndications :Chronic constipation 1-2 tablets daily to maintain daily BM 180 tablet 2 10/07/19 18 Active aspirin (ECOTRIN) 81 mg enteric coated tabletIndications :Hypercholesterol emia,HTN (hypertension) Take 1 tablet by mouth once daily with a meal. 90 tablet 2 11/04/19 18 Active Garlic tablet Take 1 tablet by mouth. 0 11/06/19 18 Active medication order composerIndicatio ns:TASHI (obstructive sleep apnea) CPAP- set pressure at 17 cm/H2O New CPAP supplies: Humidifier Chamber x1, mask with cushion x1, Tubing (heated if desired) x1, Headgear x1, Disposable filters (reusable and disposable) X1; 1 unit 6 02/11/20 Active CPAPIndications:O SA (obstructive sleep apnea) CPAP machine for home use at pressure: 15 cm/h2O , Heated humidifier x 1, Humidifier chamber x 1, 1 unit 11 05/19/19 Active nitroglycerin (NITROSTAT) 0.4 mg sublingual tabletIndications :Chest pain in adult Place 1 tablet under the tongue every 5 minutes if needed for Chest Pain. 1 Bottle 08/03/19 Active Insulin Syringes, Disposable, 1 mLIndications:Oth er diabetic neurological complication associated with type 2 diabetes mellitus (HC) For administering insulin at home. E11.22 . Please give U-500 insulin syringes 1 box 3 08/25/19 Active cetirizine (ZYRTEC) 10 mg tabletIndications :Environmental allergies Take 1 tablet by mouth once daily. 90 tablet 3 10/06/19 Active insulin syringe-needle u-100 (BD INSULIN SYRINGE ULTRA-FINE) 1 mL 31 gauge x 5/16Indications:I nsulin dependent diabetes mellitus FOR ADMINISTERING INSULIN AT HOME. 300 Each 3 11/03/19 Active medication order composerIndicatio ns:Chronic edema Compression stockings, size large, full calf, level 20/30 mmhg 2 Package 11/04/19 Active compr.stocking,kn ee,long,large (COMP STOCKING,KNEE,LOIDA G,LARGE)Indicatio ns:Insulin dependent diabetes mellitus,Diabetic polyneuropathy associated with type 2 diabetes mellitus (HC),Chronic edema JOBST #[id number] LRG FULL CALF KNEE BLACK 20-30 COMPRESSION 2 Package 11/27/19 Active lancets (TRUEPLUS LANCETS) 30 gauge miscIndications:T ype 2 diabetes mellitus with stage 3 chronic kidney disease, with long-term current use of insulin (HC),Insulin-requ iring or dependent type II diabetes mellitus (HC) As directed. Dispense lancets covered by insurance. E11.9 IDDM type II - Test 4-5 times/day 500 Each 3 12/14/19 19 Active metoprolol succinate SR (TOPROL XL) 200 mg Sustained-Release tabletIndications :Hypertension, unspecified type TAKE 1 TABLET BY MOUTH ONCE DAILY. 90 tablet 3 12/28/19 19 Active pravastatin (PRAVACHOL) 80 mg tabletIndications :High triglycerides Take 1 tablet by mouth at bedtime. 90 tablet 3 03/13/20 19 Active amLODIPine (NORVASC) 5 mg tablet Take 1 tablet by mouth once daily. 0 02/08/20 20 Active carBAMazepine (TEGRETOL) 200 mg tabletIndications :Convulsions, unspecified convulsion type (HC) Take 1 tablet by mouth 2 times daily. 360 tablet 3 02/08/20 20 Active clopidogreL (PLAVIX) 75 mg tablet Take 1 tablet by mouth every morning. 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 02/08/20 20 Active lisinopriL (PRINIVIL; ZESTRIL) 5 mg tablet Take 1 tablet by mouth once daily. 0 02/08/20 20 Active pantoprazole (PROTONIX) 40 mg delayed-release tablet Take 1 tablet by mouth once daily. 0 02/08/20 20 Active torsemide (DEMADEX) 20 mg tabletIndications :Edema, unspecified type Take 1 tablet by mouth once daily. 720 tablet 3 02/08/20 20 Active venlafaxine (EFFEXOR XR) 75 mg cp24 Extended-Release capsuleIndication s:Depression, unspecified depression type,Hereditary and idiopathic peripheral neuropathy Take 1 capsule by mouth once daily. 02/08/20 20 Active blood-glucose meterIndications: Diabetes mellitus type 2, uncontrolled, with complications by Not Applicable route. Dispense meter, test strips, lancets covered by pt ins. E11.9 IDDM type II - Test 4 times/day. Reason: High A1C 1 Device 02/08/20 20 Active pregabalin (LYRICA) 50 mg capsuleIndication s:Neuropathy 1 cap in the morning and two caps at bedtime 270 capsule 3 02/15/20 20 Active blood sugar diagnostic (Blood Glucose Test) stripIndications: Other diabetic neurological complication associated with type 2 [...] allopurinoL (ZYLOPRIM) 100 mg tablet Daily Active amoxicillin-clavu lanate 875-125 mg tablet (AUGMENTIN) Twice Daily For [...] units subcutaneous. Pt.got it this morning. Active ezetimibe-atorvas tatin 10-10 mg tab Daily 03/07/20 Active hydrALAZINE (APRESOLINE TABLET) 50 mg tablet four times daily 03/07/20 Active spironolactone (ALDACTONE) 50 mg tablet Twice A Day Active semaglutide (Ozempic) 2 mg/dose (8 mg/3 mL) subcutaneous penIndications:Ty pe 2 diabetes mellitus with diabetic nephropathy, with long-term current use of insulin (HC) Inject 2 mg subcutaneous once weekly. 3 Pen 3 05/30/19 25 Active insulin U-500 syringe-needle 1/2 mL 31 gauge x 15/64 syrgIndications:T ype 2 diabetes mellitus with diabetic nephropathy, with long-term current use of insulin (HC) As directed. Use 3 daily 300 Each 05/30/19 25 Active Insulin Safety [place] (Disp) (novofine autocover) 30 gauge x 1/3Indications:D pradeep 1.5, managed as type 2 (HC) For administering insulin at home. Pt uses 10 x diakly 300 Each 09/05/19 Active Humulin R 500 unit/mL injectionIndicati ons:Type 2 diabetes mellitus with diabetic nephropathy, with long-term current use of insulin (HC) Inject SC Humulin U500 insulin 140 with breakfast, 140 units with lunch and 160 units with supper, slowly titrate to TDD 400units 24 mL 11/11/19 25 Active pioglitazone 30 mg tabletIndications :Type 2 diabetes mellitus with diabetic nephropathy, with long-term current use of insulin (HC) Take 1 Tablet (30 mg) by mouth once daily. 90 Tablet 2 11/11/19 25 Active pioglitazone (ACTOS) 15 mg tabletIndications :Type 2 diabetes mellitus with diabetic nephropathy, with long-term current use of insulin (HC) Take 1 Tablet (15 mg) by mouth once daily. 30 Tablet 2 05/30/19 25 025 Discontin ued(*Medi cation adjustmen t) Humulin R 500 unit/mL injectionIndicati ons:Type 2 diabetes mellitus with diabetic nephropathy, with long-term current use of insulin (HC) Inject SC Humulin U500 insulin 140 with breakfast, 120 units with lunch and 140 units with supper, slowly titrate to TDD 400units 24 mL 3 09/05/19 25 025 Discontin ued(Reord er (E-cancel not sent)) Active Problems Problem Noted Date Diagnosed Date [...] Care Agent(s): Primary Health Care Agent: Brittany Ifeanyi Relationship: sister Secondary Health Care Agent: Relationship: [...] 04/26/2012 Pt scheduled for ACP session at [facility] clinic at 10 am and no showed. RN Management Nurse Rn, Juanita Yoo, notified and she will attempt [...] No, referral made to Advance Care Plan Armature Winder. Patient has identified Specific Treatment Preferences: No Sophia Méndez RN .................... 07/06/2011 2:30 PM] Specific limits to treatment preferences NOT identified: ASSUME FULL TREATMENT. Assessment & Plan (05/25/2012 12:51 PM SPANISHER): Advance Care Planning: Disease-specific Session Leonid Leahy is a [facility] [place] patient. His PCP is Leandra Limon at [facility]. Advance care planning discussions were completed with Leonid. He identified his sister, Brittany Suggs, as his healthcare agent. Brittany was not present for ACP session. Understanding of Illness and Disease [place]: Leonid identifies his medical condition as what [...] to live well: Daily visit to local bar for a pop and to visit and catch up in the news with locals. Leonid obed with serious challenges in his life: Support of his sister, only a phone call away. Helps manage [facility] services. Leonid identifies the following fears and [...] and primary care provider. Hard Choices for [place] People booklet was sent to Leonid and [...] is and stabilizing. Is followed by [facility] Flat Lock Machine Operator for needed services. Questions identified for his primary care provider: none Documents addressed during this advance care planning session: Health Care Directive completed and scanned into medical record. Statement of Treatment Preferences for advanced illness completed and scanned into the medical record. Recommendations/Plan: Leonid to review Advance Care Plan with Leonid's healthcare agent. Pulley Mortiser Operator will be contacting Leonid's [facility] to explain services rendered, Leonid would benefit from: Home Care and/or Hospice when / if appropriate. County services involved, sister supports coordination of medical [...] 2:27 PM Sophia Méndez RN RN [facility] [phone] Vitamin D deficiency 01/06/2011 011 Neuropathy 09/25/2010 [...] Encounters Date Type Department Care Team Description 11/10/2024 8:50 AM CDT Telemedicine [facility] [address] [address] Jessa Webster MD Telehealth (No vitals taken); Diabetes 11/10/2024 Telephone [facility] [address] [address] Jessa Webster MD Other 09/04/2024 10:30 AM CDT Telemedicine [facility] [address] [address] Jessa Webster MD Diabetes; Telehealth (No vitals taken) 09/04/2024 Travel from Last 3 Months Immunizations Immunization [...] on file Legal Sex Male 5:24 AM SPANISHER Gender Identity Not on file Sexual Orientation Not on file Obstetrics History Last Filed Vital Signs Vital Sign Reading Time Taken Comments Blood Pressure 130/50 05/26/2024 4:05 PM SPANISHER Pulse 71 05/26/2024 4:05 PM SPANISHER Temperature 36 C (96.8 F) 08/19/2022 1:41 PM CDT Respiratory Rate 16 08/19/2022 2:23 PM CDT Oxygen Saturation 92% 05/26/2024 4:05 PM SPANISHER Inhaled Oxygen Concentration - - Weight 177.8 kg (392 lb) 05/26/2024 4:05 PM SPANISHER Height 167.6 cm (5' 6) 07/14/2022 6:10 PM SPANISHER Body Mass Index 63.27 07/14/2022 6:10 PM SPANISHER Plan of Treatment Upcoming Encounters Date Type Department Care Team (Late st Contact Info) Description 02/12/2025 9:40 AM CDT Telemedicine [facility] [address] [phone] [place] [address] [place] [address] Health Maintenance Due Date Last Done Comments [...] 03/13/2024 03/13/2019, 04/25/2018, 04/25/2018, Additional history exists Medicare Wellness for age 65+ 09/13/2024 COVID-19 vaccine series ( season) 2024 04/17/2024, [...] . Diet On track( 12:28 PM CDT) No Kay García DIABETES-KEEPS DAILY LOG OF GLUCOSE CHECKS :Plan: to fax the readings to Dr Benjamin as directed Diet On track( 12:28 PM CDT) No Kay García Medical Devices Implanted Type Area Residence Life Coordinator Device Identifier Shelf Expiration Date Model / Serial / Lot Iol Posey +20 [employer]ecnis Zcb00 - [id number] Implanted:Qty: 1 on 07/15/2022 by Tanner Fuentes MD at [facility] Left: Eye [employer] 06/24/2025 ZCB00 20.0 / [id number] / Iol Posey +20 [employer]ecnis Zcb00 - [id number] Implanted:Qty: 1 on 08/19/2022 by Tanner Fuentes MD at [facility] Right: Eye [employer] 06/24/2025 ZCB00 20.0 / [id number] / Procedures Procedure Name Priority Date/Time Associated Diagnosis Comments LIPID PANEL Routine 03/13/2019 2:31 PM CDT Essential hypertriglyceridemia from Last 3 Months or Most Recently Relevant to Health Maintenance Results * (ABNORMAL) LIPID PANEL (03/13/2019 2:31 PM CDT) CHOLESTEROL,TOTAL 193 100 - 199 mg/dL 03/13/2019 9:25 PM CDT [facility] TRIGLYCERIDES 715(H) <150 mg/dL 03/13/2019 9:25 PM CDT [facility] HDL CHOLESTEROL 29(L) >40 mg/dL 9 9:25 PM CDT [facility] NON-HDL CHOLESTEROL 164(H) <145 mg/dl 03/13/2019 9:25 PM CDT [facility] CHOL/HDL RATIO 6.66(H) <4.50 03/13/2019 9:25 PM CDT [facility] LDL CHOLESTEROL 9 9:25 PM CDT [facility] Comment:Invalid LDL when Tri g >400. PROVIDER ORDERED STATUS RANDOM 03/13/2019 9:25 PM CDT [facility] Blood BLOOD SPECIMEN / Unknown Venipuncture / Unknown 03/13/2019 2:31 PM CDT 03/13/2019 2:31 PM CDT us Suellen Sosa MD CHEMISTRY Final Resul t [facility] [address] [place] [address], from Last 3 Months or Most Recently Relevant to Health Maintenance Insurance MEDICAID MEDICARE PB ONLY MEDICARE PART B HB ONLY MEDICARE PART A HB ONLY Advance Directives Documents on File Type Date Recorded Patient Family Law Specialist Expl anation POLST 09/26/2014 3:45 PM ALVAREZ ERNANDEZ, 09/24/2014 Healthcare Directive 06/02/2012 3:51 PM [...] 9:30 PM 03/19/2009 6:17 PM Care Teams Student Ministry Pastor Relationship Specialty Start Date End Date Pcp, No . PCP - General 07/15/22 Alan Lopez MD Internal Medicine Internal Medicine 11/20/10 [place] [address] [place] [address] Endocrinology Endocrinology 05/26/24
--- OUTSIDE RECORDS SUMMARY | 2024-11-10 20:05 | XMS_ITS | Clinical Summary ---
Author Organization [place] Address [address] [facility] [place] [address] Care Team Providers Care Buffer Chrome Name Role Phone Services, [facility] [address] Physician Primary Care Provi sadia Prince Tobar MD Unavailable Unava ilable Matilde PérezC Unavailable Torie Jimenez APRN CERTIFIED ART THERAPIST Unavaila ble Reinaldo Beltran PA-C Unavailable [phone] Torie Jimenez APRN CERTIFIED ART THERAPIST Unavaila ble Allergies Active Allergy Reactions Criticality [...] daily Active cholecalciferol (VITAMIN D3) 1250 mcg (35225 units) capsule Take 1,250 mcg by mouth every 7 days on Wednesdays. Active venlafaxine (EFFEXOR-XR) 75 MG 24 hr capsule Take 225 mg by mouth daily Active hydrALAZINE (APRESOLINE) 50 MG tablet Take 50 mg by mouth 4 times daily Active polyethylene glycol (MIRALAX) 17 GM/Dose powder Take 17 g by mouth daily Active nystatin (MYCOSTATIN) 691781 UNIT/GM external powder Apply topically 2 times [...] Next Due COVID-19 MONOVALENT 12+ (Pfizer) 06/25/2020,05/17 [id number] Novel Flu 05/07/2009 Hepatitis B, Adult (Energix-B/Recombivax [...] on file Legal Sex Male 3:35 AM [employer]NA[employer] Gender Identity Not on file Sexual Orientation Choose not to disclose 2021 8:14 AM [employer]NA[employer] Last Filed Vital Signs Vital Sign Reading Time Taken Comments Blood Pressure 118/75 06/19/2024 12:32 PM [employer] Pulse 73 06/19/2024 12:32 PM [employer] Temperature 36.6 C (97.8 F) 03/08/2024 7:44 AM CDT Respiratory Rate 16 03/07/2024 5:07 PM CDT Oxygen Saturation 95% 06/19/2024 12:32 PM [employer] Inhaled Oxygen Concentration - - Weight 176.9 kg (390 lb) 06/19/2024 12:32 PM [employer] Height 170.2 cm (5' 7) 06/19/2024 12:32 PM [employer] Body Mass Index 61.08 06/19/2024 12:32 PM [employer] Plan of Treatment Health Maintenance Due Date [...] Procedure Name Priority Date/Time Associated Diagnosis Comments POTASSIUM Routine 10/23/2024 11:30 AM CDT Hypokalemia HEMOGLOBIN A1C Routine 09/08/2024 11:35 AM CDT Type 2 diabetes mellitus with diabetic polyneuropathy (H) Hypokalemia 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) BASIC METABOLIC PANEL Routine 09/08/2024 11:35 AM CDT Type 2 diabetes mellitus with diabetic polyneuropathy (H) Hypokalemia 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) LIPID PROFILE Routine 05/15/2024 11:20 AM [employer] Type 2 diabetes mellitus with other specified complication (H) Hypokalemia 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) Hypertensive heart disease without heart failure from Last 3 Months or Most Recently Relevant to Health Maintenance Results * Potassium (10/23/2024 11:30 AM CDT) Potassium 4.0 3.4 - 5.3 mmol/L 10/23/2024 1:11 PM CDT LABORATORY Blood BLOOD SPECIMEN / Unknown Client Draw / Unknown 10/23/2024 11:30 AM CDT 10/23/2024 12:45 PM CDT Harrison Munson NP LAB - BLOOD ORDERABLES Final Result [facility] [address] [facility] Lab (1st floor, no room number) [place] [address] * (ABNORMAL) Hemoglobin A1c (09/08/2024 11:35 AM CDT) Estimated Average Glucose 235(H) <117 mg/dL 09/08/2024 1:19 PM CDT LABORATORY Hemoglobin A1C 9.8(H) <5.7 % 09/08/2024 1:19 PM CDT LABORATORY Comment: Normal <5.7% Prediabetes 5.7-6.4% Diabetes 6.5% or higher Note: Adopted from ADA consensus guidelines. Blood BLOOD SPECIMEN / Unknown Client Draw / Unknown 09/08/2024 11:35 AM CDT 09/08/2024 12:16 PM CDT Harrison Munson NP LAB - BLOOD ORDERABLES Final Result [facility] [address] Lab (1st floor, no room number) [place] [address], [facility] * (ABNORMAL) Basic metabolic panel (09/08/2024 11:35 AM CDT) [facility] Sodium 141 135 - 145 mmol/L 09/08/2024 [...] - 23.0 mg/dL 09/08/2024 1:16 PM CDT LABORATORY Creatinine 1.00 0.67 - 1.17 mg/dL 09/08/2024 1:16 PM CDT LABORATORY GFR Estimate 84 >60 mL/min/1.7 3m2 09/08/2024 1:16 PM CDT LABORATORY Comment:eGFR calculated 2020 CKD-EPI equation. Calcium 9.0 8.8 - 10.4 mg/dL 09/08/2024 1:16 PM CDT LABORATORY Glucose 238(H) 70 - 99 mg/dL 09/08/2024 1:16 PM CDT LABORATORY Blood BLOOD SPECIMEN / Unknown Client Draw / Unknown 09/08/2024 11:35 AM CDT 09/08/2024 12:16 PM CDT us Harrison Munson NP LAB - BLOOD ORDERABLES Final Result [facility] [address] Lab (1st floor, no room number) [place] [address], [facility] * (ABNORMAL) Lipid Profile (05/15/2024 11:20 AM MANAGER [employer]MENT) [facility] Cholesterol 116 <200 mg/dL 05/15/2024 6:03 PM [employer] [facility] Triglycerides 575(H) <150 mg/dL 05/15/2024 6:03 PM [employer]NAGER [employer]EL[employer] [facility] Direct Measure HDL 28(L) >=40 mg/dL 05/15/2024 6:03 PM [employer]NA[employer]ELOPMENT [facility] LDL Cholesterol Calculated 05/15/2024 6:03 PM [employer]NAGER [employer]ELOPMENT [facility] Comment:Cannot estimate LDL when triglyceride exceeds 400 mg/dL Non HDL Cholesterol 88 <130 mg/dL 05/15/2024 6:03 PM MANAGER [employer]ELOPMENT [facility] Patient Fasting > 8hrs? No 05/15/2024 6:03 PM MANAGER [employer] DEVELOPMENT [facility] Blood BLOOD SPECIMEN / Unknown Client Draw / Unknown 05/15/2024 11:20 AM MANAGER [employer]ING [employer]ELOPMENT 05/15/2024 12:53 PM MANAGER [employer]ING [employer] DEVELOPMENT Narrative [facility] - 05/15/2024 6:03 PM [employer]NAGER [employer]ELOPMENT Cholesterol Desirable: < 200 mg/dL Borderline High: [...] NP LAB - BLOOD ORDERABLES Final Result [facility] [address] [facility] [address] [facility] [place] [address], [place] LABORATORY [facility] [address] Lab (1st floor, no room number) [place] [address], [facility] from Last 3 Months or Most Recently Relevant to Health Maintenance Insurance [place]IC[place] Advance Directives For more information, please contact: [phone] Documents on File Type Date Recorded Patient Delivery Supervisor Expl anation Advance Directives and Living [...] yissel nt/ legal decision maker Care Teams Buffer Chrome Relationship Specialty Start Date End Date Services, [facility] [address] Physician [phone] [address] PCP - General 05/22/21 Prince Tobar MD [address] [place] [id number] Cardiovascular Disease 03/26/22 Matilde Pérez PA-C [address] [place] [phone] Physician Medical Assistant Internal Medicine Physician Medical Assistant Internal Medicine - Surgical 12/30/23 Torie Jimenez APRN CERTIFIED ART THERAPIST [address] [place] [address] [address] [place], [place] [id number] Nurse Practitioner Colon & Rectal 03/17/24 Reinaldo Beltran PA-C [facility] [address] [place] [id number] Physician Medical Assistant Internal Medicine Emergency Medicine 03/17/24 Torie Jimenez, COMP FIELD CASE MANAGER CERTIFIED ART THERAPIST [address] [place] [id number] Assigned Surgical Provider 07/09/24
--- NOTE | 2024-11-10 20:27 | CRLHL7_ITS ---
For Patients: As a result of the Cures Act, medical imaging exams and procedure reports are released immediately into your electronic medical record. You may view this report before your referring provider. If you have questions, please contact your health care provider. INDICATION: Chest pain. TECHNIQUE: Chest 2 views. COMPARISON: April 27, 2024. FINDINGS: Cardiovascular and mediastinum: Heart size and vasculature are normal in caliber and appearance. Lungs and pleural spaces: Low lung volumes. No sign of infiltrate or mass. No sign of pleural effusion. No pneumothorax. Bones and soft tissues: No significant findings. IMPRESSION: Low lung volumes. No acute or significant findings. Dictated by Mack Zuniga MD @ 11/10/2024 8:54:32 PM (Electronically Signed)
[2024-11-10 20:44] LABS: Basophils Absolute Auto 0.03 K/uL (0.00-0.30); Basophils Percent Auto 0.4 % (0.0-3.0); Eosinophils Absolute Auto 0.16 K/uL (0.00-0.50); Eosinophils Percent Auto 2.3 % (0.0-7.0); Hematocrit 37.5 % (37.0-53.0); Hemoglobin* 12.5 gm/dL (13.5-17.5); Immature Granulocytes Abs Auto 0.02 K/uL (0.00-0.30); Immature Granulocytes Pct Auto 0.3 %; Lymphocytes Absolute Auto 2.22 K/uL (0.90-2.90); Lymphocytes Percent Auto 31.9 % (20-44); Mean Corpuscular HGB Conc 33 gm/dL (32-36); Mean Corpuscular Hemoglobin 29 pg (26-34); Mean Corpuscular Volume 86 fL (80-100); Monocytes Percent Auto 5.2 % (0.0-11.0); Neutrophils Absolute Auto 4.17 K/uL (1.7-7.0); Neutrophils Percent Auto 59.9 % (42.0-72.0); Platelet Count* 190 K/uL (140-440); Red Blood Count 4.34 m/uL (4.30-5.90); Slide Review Reflex No; White Blood Count* 6.96 K/uL (4.50-11.00)
[2024-11-10 21:01] LABS: Chloride* 99 mmol/L (96-114); Potassium* 3.5 mmol/L (3.6-5.1); Sodium* 140 mmol/L (135-149)
[2024-11-10 21:04] LABS: Anion Gap 8 mEq/L (7-15); Blood Urea Nitrogen* 24 mg/dL (7-30); Calcium* 8.6 mg/dL (8.4-10.6); Carbon Dioxide* 33 mmol/L (20-32); Creatinine* 1.2 mg/dL (0.5-1.5); Est. Creatinine Clearance* 53.39; Estimated Glomerular Filt Rate 67 ml/min; Glucose* 260 mg/dL (60-115)
[2024-11-10 21:05] LABS: Magnesium* 2.1 mg/dL (1.5-2.6)
[2024-11-10 21:14] LABS: D Dimer Quantitative* < 0.27 ug/ml (0.00-0.50)
--- NOTE | 2024-11-10 21:17 | ED.CHESTPAIN ---
HPI - Chest Pain General Date Seen: 11/10/24 Chief Complaint: Chest Pain Stated Complaint: Chest pain Time Seen by Provider: 11/10/24 20:27 Source: patient Mode of arrival: ambulatory Limitations: no limitations History of Present Illness HPI narrative: Patient is a 64-year-old male presenting to the emergency department for left-sided chest pain. He states this chest pain started around 18:00 after he finished eating supper. Pain has persisted so EMS was called. Pain is 8/10 at the scene. Was given aspirin and nitro via ambulance. He had some mild improvement in his chest pain after the nitro and states now a 6 or 7/10 pain. States it feels like a dull ache in his chest. Has had multiple stents before most recently 3 years ago. States previously when he has required stents the pain went across his entire chest. This time it stops at the midline. Says the pain at that time was much more intense also. Had some shortness of breath and lightheadedness initially but that has since improved. Has not had any abdominal pain. Has a previous DVT. Currently on Eliquis. He also has extensive heart history and diabetes. Denies fevers or chills. States this pain does not feel like previous GERD. No other concerns noted. Related Data Home Medications ?Medication ?Instructions ?Recorded ?Confirmed amlodipine 10 mg tablet 10 mg PO DAILY 03/07/22 11/11/24 apixaban 5 mg tablet (Eliquis) 5 mg PO BID 03/07/22 11/11/24 aripiprazole 15 mg tablet 7.5 mg PO DAILY 03/07/22 11/11/24 aspirin 81 mg tablet,delayed 81 mg PO DAILY 03/07/22 11/11/24 release carbamazepine 200 mg tablet 200 mg PO BID 03/07/22 11/11/24 chlorthalidone 25 mg tablet 25 mg PO DAILY 03/07/22 11/11/24 ezetimibe 10 mg tablet 10 mg PO DAILY 03/07/22 11/11/24 hydralazine 50 mg tablet 50 mg PO QID 03/07/22 11/11/24 pantoprazole 40 mg tablet,delayed 40 mg PO DAILY 03/07/22 11/11/24 release polyethylene glycol 3350 17 17 g PO DAILY 03/07/22 11/11/24 gram/dose oral powder pregabalin 100 mg capsule 100 mg PO QAM 03/07/22 11/11/24 pregabalin 150 mg capsule 150 mg PO HS 03/07/22 11/11/24 torsemide 20 mg tablet 20 mg PO DAILY 03/07/22 11/11/24 venlafaxine 75 mg capsule,extended 225 mg PO DAILY 03/07/22 11/11/24 release 24 hr acetaminophen 500 mg tablet 500 mg PO Q6H 06/13/22 11/11/24 albuterol sulfate 90 mcg/actuation 1 inh inhalation Q4H PRN 06/13/22 11/11/24 aerosol inhaler bronchospasm diphenhydramine HCl 50 mg capsule 50 mg PO Q6H PRN itching 06/13/22 11/11/24 (Banophen) icosapent ethyl 1 gram capsule 2 g PO BID 06/13/22 11/11/24 (Vascepa) insulin regular hum U-500 conc 500 100 unit subcut TID 06/13/22 11/11/24 unit/mL(3 mL) subcut pen (Humulin R U-500 (Conc) Insulin Kwikpen) ketoconazole 2 % shampoo 1 applic topical Q3D 06/13/22 11/11/24 loperamide 2 mg capsule 2 mg PO Q6H PRN loose stool 06/13/22 11/11/24 nystatin 100,000 unit/gram topical 1 applic topical BID PRN 06/13/22 11/11/24 powder sennosides 8.6 mg tablet (senna) 8.6 mg PO DAILY 06/13/22 11/11/24 clotrimazole 1 % topical cream 1 applic topical BID 07/25/22 11/11/24 insulin glargine 100 unit/mL (3 30 unit subcut BID 12/27/23 11/11/24 mL) subcutaneous pen (Basaglar KwikPen U-100 Insulin) isosorbide mononitrate 60 mg 60 mg PO DAILY 12/27/23 11/11/24 tablet,extended release 24 hr metoprolol succinate 200 mg 200 mg PO DAILY 12/27/23 11/11/24 tablet,extended release 24 hr semaglutide 1 mg/dose (4 mg/3 mL) 1 mg subcut .weekly 12/27/23 11/11/24 subcutaneous pen injector (Ozempic) carvedilol 25 mg tablet 25 mg PO DAILY 02/20/24 11/11/24 potassium chloride 20 mEq 40 meq PO BID 02/20/24 11/11/24 tablet,extended release(part/cryst) rosuvastatin 40 mg tablet 40 mg PO HS 02/20/24 11/11/24 Previous Rx's ?Medication ?Instructions ?Recorded hydrocortisone 2.5 % topical cream 1 applic topical BID PRN #30 grams 09/14/22 ammonium lactate 12 % lotion 1 applic topical BID #225 grams 04/01/23 diphenoxylate-atropine 2.5 1 tab PO DAILY PRN diarrhea 2 days 04/28/24 mg-0.025 mg tablet (Lomotil) #2 tabs hydrocodone 5 mg-acetaminophen 325 1 tab PO Q4-6H PRN pain #10 tabs 10/19/24 mg tablet Allergies Allergy/AdvReac Type Severity Reaction Status Date / Time lisinopril Allergy Mild Cough Verified 11/11/24 00:29 metformin AdvReac Verified 11/11/24 00:29 Review of Systems Status of ROS Reports: 10 or more systems reviewed and unremarkable except as noted in History and below [facility] [facility] History Anemia in chronic kidney disease (CKD) ?N18.9 - Chronic kidney disease, unspecified (ICD-10) ?D63.1 - Anemia in chronic kidney disease (ICD-10) Chronic kidney disease (CKD), stage IV (severe) ?N18.4 - Chronic kidney disease, stage 4 (severe) (ICD-10) DISH (diffuse idiopathic skeletal hyperostosis) ?M48.10 - Ankylosing hyperostosis [[place]], site unspecified (ICD-10) Edema ?R60.9 - Edema, unspecified (ICD-10) Neuropathy ?G62.9 - Polyneuropathy, unspecified (ICD-10) Learning disability ?F81.9 - Developmental disorder of scholastic skills, unspecified (ICD-10) Insomnia ?G47.00 - Insomnia, unspecified (ICD-10) Metabolic syndrome ?E88.810 - Metabolic syndrome (ICD-10) Sensorineural hearing loss (SNHL) of both ears ?H90.3 - Sensorineural hearing loss, bilateral (ICD-10) Tinnitus ?H93.19 - Tinnitus, unspecified ear (ICD-10) Hypercholesterolemia ?E78.00 - Pure hypercholesterolemia, unspecified (ICD-10) Insulin dependent diabetes mellitus Recurrent deep vein thrombosis (DVT) ?I82.409 - Acute embolism and thrombosis of unspecified deep veins of unspecified lower extremity (ICD-10) Hypertension ?I10 - Essential (primary) hypertension (ICD-10) Coronary artery disease ?I25.10 - Atherosclerotic heart disease of [place] coronary artery without angina pectoris (ICD-10) Hypertriglyceridemia ?E78.1 - Pure hyperglyceridemia (ICD-10) Epilepsy ?G40.909 - Epilepsy, unspecified, not intractable, without status epilepticus (ICD-10) TASHI on CPAP ?G47.33 - Obstructive sleep apnea (adult) (pediatric) (ICD-10) ?Z99.89 - Dependence on other enabling machines and devices (ICD-10) Tachypnea ?R06.82 - Tachypnea, not elsewhere classified (ICD-10) Fever ?R50.9 - Fever, unspecified (ICD-10) CKD (chronic kidney disease) ?N18.9 - Chronic kidney disease, unspecified (ICD-10) Gout ?M10.9 - Gout, unspecified (ICD-10) Major depressive disorder ?F32.9 - Major depressive disorder, single episode, unspecified (ICD-10) Type 2 diabetes mellitus ?E11.9 - Type 2 diabetes mellitus without complications (ICD-10) Obesity ?E66.9 - Obesity, unspecified (ICD-10) Surgical History History of cholecystectomy ?Z90.49 - Acquired absence of other specified parts of digestive tract (ICD-10) Social History Narrative: Lives in a [facility] in [place], [place]. Sisters Brittany Suggs ([phone]) and Blanka Mcduffie ([phone]) listed as contacts and medical decision makers. Paperwork from [facility] indicates Full Code status. What is your current living situation?: I presently have a place to live Problems where you live: no known problems Problems where you live details: none In the past 12 months, utilities in danger of being shut off: no In past 12 months, lack of transportation kept you from medical appts, meetings, work, or getting things needed for daily living: no In the past 12 mos, have been you worried that your food would run out before you had money to buy more?: never true In the past 12 mos, the food you bought just didn't last and you didn't have money to buy more?: never true Highest level of school completed/degree received: 12th grade, no diploma Smoking Status: Never smoker Do you use any of these nicotine containing products: None Second hand tobacco smoke exposure: No How often do you have a drink containing alcohol: never How often do you have six or more drinks on one occasion: Never AUDIT-C Alcohol total score: 0 Non-prescribed substance use: denies use Caffeine: No How often does anyone, including family, friends and others, physically hurt you: never How often does anyone, including family, friends and others, insult or talk down to you: never How often does anyone, including family, friends and others, threaten you with harm: never How often does anyone, including family, friends and others, scream or curse at you: never service: No Exam Narrative Exam Narrative: Const: Well-nourished, Well-developed, in mild distress Eyes: PERRL, no conjunctival injection, and symmetrical lids HENT: Atraumatic external nose and ears. Moist mucous membranes. Neck: Symmetric, trachea midline, No thyromegaly. CVS: RRR, No murmurs or gallops. Peripheral pulses 2+ and equal in all extremities RESP: Unlabored respiratory effort. Clear to auscultation bilaterally. GI: Nontender/Nondistended, No rebound or guarding. MSK:Extremities w/o deformity, Normal Active ROM Skin: Warm, Dry. No rashes or lesions. Neuro: Normal Muscle tone, No focal neurological deficits. Psych: Awake, Alert, & Oriented x3. Appropriate mood and affect. Const Vital Signs, click to edit/add: Vital Signs - 24 hr 11/10/24 20:05 11/10/24 23:45 11/10/24 23:48 Temperature 97.4 F L Pulse Rate 85 Pulse Rate [Left Pulse Oximeter] 87 Respiratory Rate 18 19 Blood Pressure 151/64 H Blood Pressure [Right Upper Arm] 151/64 H Pulse Oximetry 97 95 Oxygen Delivery Method Room Air 11/10/24 23:48 Temperature Pulse Rate Pulse Rate [Left Pulse Oximeter] Respiratory Rate Blood Pressure 146/60 H Blood Pressure [Right Upper Arm] Pulse Oximetry Oxygen Delivery Method Course Vital Signs Vital signs: Initial Vital Signs Temperature 97.4 F L 11/10/24 20:05 Temperature Source Temporal Artery Scan 11/10/24 20:05 Pulse Rate 87 11/10/24 20:05 Pulse Rhythm Regular 11/10/24 20:05 Respiratory Rate 18 11/10/24 20:05 Blood Pressure 151/64 H 11/10/24 20:05 Blood Pressure Mean 93 11/10/24 20:05 Blood Pressure Position Semi-Fowlers 11/10/24 20:05 Pulse Oximetry 97 11/10/24 20:05 Oxygen Delivery Method Room Air 11/10/24 20:05 Vital Signs Temperature 97.4 F L 11/10/24 20:05 Pulse Rate 87 11/10/24 20:05 Respiratory Rate 18 11/10/24 20:05 Blood Pressure 151/64 H 11/10/24 20:05 Pulse Oximetry 97 11/10/24 20:05 Oxygen Delivery Method Room Air 11/10/24 20:05 Temperature 97.4 F L 11/10/24 20:05 Pulse Rate 85 11/10/24 23:45 Respiratory Rate 19 11/10/24 23:45 Blood Pressure 146/60 H 11/10/24 23:48 Pulse Oximetry 95 11/10/24 23:45 Oxygen Delivery Method Room Air 11/10/24 20:05 Medications Administered Medications: Discontinued Medications Generic Name Dose Route Start Last Admin Trade Name Freq PRN Reason Stop Dose Admin Lidocaine/Aluminum/Magnesium/Simeth 30 ml 11/10/24 21:45 11/10/24 21:57 Gi Cocktail (Visc Lido/Antacid) 30 Ml PO 11/10/24 21:46 30 ml ONCE ONE Administration MDM - Chest Pain MDM Narrative Medical decision making narrative: Patient is a 64-year-old male presenting for chest pain. The differential diagnosis of chest pain is broad and includes common etiologies such as musculoskeletal strain, GERD, pneumonia, etc. More serious etiologies considered include PE, coronary artery disease, pneumothorax, aortic dissection, aortic aneurysm. With his history I do have concerns of an PR. EKG shows no signs of STEMI. Initial troponin is normal he appears stable my concern for aortic dissection and aortic aneurysm is low. Will do a D-dimer to look for signs of PE. Also order chest x-ray to look for signs of pneumonia or pneumothorax. I offered him more nitro and he declined. Will do EKG, troponin, CBC, BMP, viral swabs, magnesium, BNP. Patient's EKG shows no concerning abnormalities. Patient's lab work shows no concerning abnormalities. D-dimer within normal limits. Electrolytes all appear normal. Troponin is within normal limits. Will repeat the troponin at the 3 hour regi. Viral swabs are negative. Chest x-ray reviewed by myself and the radiologist shows no acute concerning findings. Did try GI cocktail. He says it helped a little bit. He is still having the discomfort in his chest. He has quite a few risk factors for heart disease. I did go back in the room as a realistic for got to palpate his chest. When I pushed on his chest it reproduce his pain exactly. He states that is exactly pain I am having when you pushed on my chest. Due to that I do believe his pain is most likely musculoskeletal in nature due to this. Considering the multiple normal troponins, normal EKG the otherwise not concerning lab work I do believe he is safe for discharge and can follow-up with his primary care provider. Lab Data Labs: Lab Results 11/10/24 11/10/24 11/10/24 Range/Units 20:06 20:17 20:27 WBC 6.96 (4.50-11.00) K/uL RBC 4.34 (4.30-5.90) m/uL Hgb 12.5 L (13.5-17.5) gm/dL Hct 37.5 (37.0-53.0) % MCV 86 (80-100) fL MCH 29 (26-34) pg MCHC 33 (32-36) gm/dL RDW Coeff of Kaylen 14.0 (11.5-15.5) % Plt Count 190 (140-440) K/uL Neut % (Auto) 59.9 (42.0-72.0) % Lymph % (Auto) 31.9 (20-44) % [place] % (Auto) 5.2 (0.0-11.0) % Eos % (Auto) 2.3 (0.0-7.0) % Baso % (Auto) 0.4 (0.0-3.0) % Neut # (Auto) 4.17 (1.7-7.0) K/uL Lymph # (Auto) 2.22 (0.90-2.90) K/uL [place] # (Auto) 0.40 (0.00-0.90) K/UL Eos # (Auto) 0.16 (0.00-0.50) K/uL Baso # (Auto) 0.03 (0.00-0.30) K/uL Abs Immat Gran (auto) 0.02 (0.00-0.30) K/uL Imm/Tot Granulo (auto) 0.3 % D-Dimer Quant (PE/DVT) < 0.27 (0.00-0.50) ug/ml Sodium 140 (135-149) mmol/L Potassium 3.5 L (3.6-5.1) mmol/L Chloride 99 (96-114) mmol/L Carbon Dioxide 33 H (20-32) mmol/L Anion Gap 8 (7-15) mEq/L BUN 24 (7-30) mg/dL Creatinine 1.2 (0.5-1.5) mg/dL Estimated Creat Clear 53.39 Estimated GFR 67 ml/min Glucose 260 H (60-115) mg/dL Calcium 8.6 (8.4-10.6) mg/dL Magnesium 2.1 (1.5-2.6) mg/dL Troponin I < 0.01 (0.01-0.04) ng/mL NT-Pro-B Natriuret Pep 64 (See Note) pg/mL SARS-CoV-2 (PCR) Negative SARS-CoV-2 (Negative) Influenza Type A (PCR) Negative PCR FLU A (Negative) Influenza Type B (PCR) Negative PCR FLU B (Negative) RSV (PCR) Negative PCR RSV (Negative) POC Troponin I 0.00 L (0.01-0.04) ng/ml 11/10/24 Range/Units 23:06 WBC (4.50-11.00) K/uL RBC (4.30-5.90) m/uL Hgb (13.5-17.5) gm/dL Hct (37.0-53.0) % MCV (80-100) fL MCH (26-34) pg MCHC (32-36) gm/dL RDW Coeff of Kaylen (11.5-15.5) % Plt Count (140-440) K/uL Neut % (Auto) (42.0-72.0) % Lymph % (Auto) (20-44) % [place] % (Auto) (0.0-11.0) % Eos % (Auto) (0.0-7.0) % Baso % (Auto) (0.0-3.0) % Neut # (Auto) (1.7-7.0) K/uL Lymph # (Auto) (0.90-2.90) K/uL [place] # (Auto) (0.00-0.90) K/UL Eos # (Auto) (0.00-0.50) K/uL Baso # (Auto) (0.00-0.30) K/uL Abs Immat Gran (auto) (0.00-0.30) K/uL Imm/Tot Granulo (auto) % D-Dimer Quant (PE/DVT) (0.00-0.50) ug/ml Sodium (135-149) mmol/L Potassium (3.6-5.1) mmol/L Chloride (96-114) mmol/L Carbon Dioxide (20-32) mmol/L Anion Gap (7-15) mEq/L BUN (7-30) mg/dL Creatinine (0.5-1.5) mg/dL Estimated Creat Clear Estimated GFR ml/min Glucose (60-115) mg/dL Calcium (8.4-10.6) mg/dL Magnesium (1.5-2.6) mg/dL Troponin I (0.01-0.04) ng/mL NT-Pro-B Natriuret Pep (See Note) pg/mL SARS-CoV-2 (PCR) (Negative) Influenza Type A (PCR) (Negative) Influenza Type B (PCR) (Negative) RSV (PCR) (Negative) POC Troponin I 0.01 (0.01-0.04) ng/ml Discharge Plan Discharge Clinical Impression: Acute chest wall pain Patient Disposition: Home, Self-Care Condition: Stable Instructions: Chest Wall Pain (ED) Additional Instructions: I do believe the chest pain is musculoskeletal in nature. I do highly recommend you have close follow-up with your primary care provider any should probably follow up with the roof assembler again as it has been awhile since you have seen them. Please return to the emergency department immediately for new or worsening symptoms. Activity Level: No Restrictions Discharge Diet: Regular Prescriptions: No Action amlodipine 10 mg tablet 10 mg PO DAILY aripiprazole 15 mg tablet 7.5 mg PO DAILY Eliquis 5 mg tablet 5 mg PO BID aspirin 81 mg tablet,delayed release (DR/EC) 81 mg PO DAILY venlafaxine 75 mg capsule,extended release 24hr 225 mg PO DAILY torsemide 20 mg tablet 20 mg PO DAILY chlorthalidone 25 mg tablet 25 mg PO DAILY carbamazepine 200 mg tablet 200 mg PO BID pantoprazole 40 mg tablet,delayed release (DR/EC) 40 mg PO DAILY hydralazine 50 mg tablet 50 mg PO QID Patient Comments: 08,12,16,20 ezetimibe 10 mg tablet 10 mg PO DAILY pregabalin 100 mg capsule 100 mg PO QAM pregabalin 150 mg capsule 150 mg PO HS polyethylene glycol 3350 17 gram/dose powder 17 g PO DAILY Rx Instructions: AND TWICE DAILY NEEDED sennosides [senna] 8.6 mg tablet 8.6 mg PO DAILY ketoconazole 2 % shampoo 1 applic TOPICAL Q3D diphenhydramine HCl [Banophen] 50 mg capsule 50 mg PO Q6H PRN (Reason: itching) loperamide 2 mg capsule 2 mg PO Q6H PRN (Reason: loose stool) acetaminophen 500 mg tablet 500 mg PO Q6H nystatin 100,000 unit/gram powder 1 applic TOPICAL BID PRN albuterol sulfate 90 mcg/actuation HFA aerosol inhaler 1 inh INHALATION Q4H PRN (Reason: bronchospasm) icosapent ethyl [Vascepa] 1 gram capsule 2 g PO BID Humulin R U-500 (Conc) Kwikpen 500 unit/mL (3 mL) insulin pen 100 unit SUBCUT TID clotrimazole 1 % cream 1 applic topical BID Rx Instructions: GROIN,PERIAREA AND ABDOMIN hydrocortisone 2.5 % cream 1 applic topical BID PRNQty: 30 1RF ammonium lactate 12 % lotion 1 applic topical BID Qty: 225 0RF metoprolol succinate 200 mg tablet extended release 24 hr 200 mg PO DAILY isosorbide mononitrate 60 mg tablet extended release 24 hr 60 mg PO DAILY Ozempic 1 mg/dose (4 mg/3 mL) pen injector 1 mg subcut .weekly insulin glargine [Basaglar KwikPen U-100 Insulin] 100 unit/mL (3 mL) insulin pen 30 unit subcut BID potassium chloride 20 mEq tablet,ER particles/crystals 40 meq PO BID rosuvastatin 40 mg tablet 40 mg PO HS carvedilol 25 mg Tablet 25 mg PO DAILY diphenoxylate-atropine [Lomotil] 2.5-0.025 mg tablet 1 tab PO DAILY PRN (Reason: diarrhea) 2 Days Qty: 2 0RF Rx Instructions: Start 12-14 hydrocodone-acetaminophen 5-325 mg tablet 1 tab PO Q4-6H PRN (Reason: pain) Qty: 10 0RF Follow Up/Referrals: Provider,Not a Local [Primary Care Provider, Family Practice] Stand Alone Forms: MyHealth Info Instructions
[2024-11-10 21:26] LABS: NT Pro B Type NatriureticPept* 64 pg/mL (See Note); Troponin I* < 0.01 ng/mL (0.01-0.04)
--- OUTSIDE RECORDS SUMMARY | 2024-11-10 21:42 | XMS_ITS | CCD ---
Author Organization Unknown Care Team Providers Care Cruise Agent Name Role Phone Harrison Durham Primary Care Provider Leona vailable Unavailable Chronic Care Management Unavaila ble Summary Purpose DataExchange Insurance Providers Payer name Policy type / Coverage type Covered alliance party ID Effective Begin Date Effective End Date [place] [id number] Unknown Unknown [place] Medicare Part B [id number] Unknown Unknown Family history Sister Brittany Suggs [...] on file 07/11/[address]: 578389646 Never smoker 01/16 Sexually Active? Unknown No [...] Single 10/07/2021 Living arrangements Unknown Half-Way 09/03/[address]: 497614607 No Alcohol Consum ption 09/02/2020 Allergies, Adverse Reactions, Alerts Substance Reaction Codes Entered Date Inactivated Date Status * NO KNOWN FOOD ALLERGIES Unknown 07/13/2023 No Inactive Date Active LISINOPRIL RxNorm: 12585 02/12/2020 No Inactive Da te Active Metformin [...] 703.8 10/10/2024 Active Pulmonary nodule SNOMED CT: 441190268 ICD-10: R91.1 ICD-9: 793.11 10/10/2024 Active Recurrent [...] 564.01 09/05/2024 Active Loose stools SNOMED CT: 947511803 ICD-10: R19.5 ICD-9: 787.7 09/05/2024 Active Body mass index [BMI] 60.0-69.9, adult SNOMED CT: 560552711 ICD-10: Z68.44 ICD-9: V85.44 08/08/2024 Active Mixed incontinence SNOMED CT: 17581882 ICD-10: N39.46 ICD-9: 788.33 08/08/2024 Active Diabetic [...] 701.9 09/07/2023 Resolved Coronary artery disease involving [place] coronary artery of [place] heart, angina presence unspecified ICD-10: I25.10 ICD-9: [...] hydrocodone 5 mg-acetaminophen 325 mg tablet RxNorm: 771865 Take 1 Tablet(s) Oral Q4H every four hours as needed for pain PRN for severe acute dental pain 10/21/19 25 025 Inactive penicillin V potassium 500 mg tablet RxNorm: 497258 Take 1 Tablet(s) Oral QID Take until dental appointment per ER recommendation 10/21/19 25 025 Inactive hydrocodone 5 mg-acetaminophen 325 mg tablet RxNorm: 730404 Take 1 Tablet(s) Oral Q4H every four hours as needed for pain PRN for severe acute dental pain 10/21/19 25 025 Inactive penicillin V potassium 500 mg tablet RxNorm: 704303 Take 1 Tablet(s) Oral QID Take until dental appointment per ER recommendation 10/21/19 25 025 Inactive potassium chloride ER 20 mEq tablet,extended release RxNorm: 015389 Take 2 Tablet(s) Oral TID (dx: hypokalemia) 09/14/19 25 026 Active potassium chloride ER 20 mEq tablet,extended release RxNorm: 377678 Take 2 Tablet(s) Oral TID (dx: hypokalemia) 09/14/19 25 Inactive loperamide 2 mg tablet RxNorm: 041076 Take 2 Tablet(s) Oral UD as directed [...] Date Active senna 8.6 mg tablet RxNorm: 299352 Take 1 Tablet(s) Oral QD as needed and 1 tab BID prn 09/06/19 No Stop Date Active cyclobenzaprine 10 mg tablet RxNorm: 373261 Take 1 Tablet(s) Oral QHS every night at bedtime as needed 09/06/19 No Stop Date Active loperamide 2 mg tablet RxNorm: 043023 Take 2 Tablet(s) Oral UD as directed as needed 2 tabs after first loose stool then 1 tab after each subsequent stool PRN Do not exceed 4 doses in 24 hours. Do not administer until after 3 loose stools. 09/06/19 25 026 Active pioglitazone 15 mg tablet RxNorm: 521322 Take 1 Tablet(s) Oral QD 09/06/19 No Stop Date Active loperamide 2 mg tablet RxNorm: 120411 Take 2 Tablet(s) Oral UD as directed as needed 2 tabs after first loose stool then 1 tab after each subsequent stool PRN Do not exceed 4 doses in 24 hours. Do not administer until after 3 loose stools. 09/06/19 25 025 Inactive pregabalin 100 mg capsule RxNorm: 347362 1 CAPSULE BY MOUTH EVERY MORNING (DX: NEUROPATHY) 08/23/19 25 025 Active FACILITY IS REQUESTING REFILL. PRIOR RX HAS BEEN EXHAUSTED. THANK YOU. pregabalin 150 mg capsule RxNorm: 976559 1 CAPSULE BY MOUTH AT BEDTIME (DX: NEUROPATHY) 08/21/19 25 025 Active FACILITY IS REQUESTING A REFILL OF THIS MEDICATION, THANK YOU! senna 8.6 mg tablet RxNorm: 857769 Take 1 Tablet(s) Oral QD as needed for constipation on day 2 of no bowel movement 08/09/19 25 Inactive Miralax 17 gram/dose oral powder RxNorm: 216338 Administer 17 Gram(s) Oral QD as needed for constipation on day 3 of no bowel movement 08/09/19 25 025 Inactive senna 8.6 mg tablet RxNorm: 392533 Take 1 Tablet(s) Oral QD as needed for constipation on day 2 of no bowel movement 08/09/19 25 025 Inactive Miralax 17 gram/dose oral powder RxNorm: 122425 Administer 17 Gram(s) Oral QD as needed for constipation on day 3 of no bowel movement 08/09/19 25 025 Inactive pregabalin 100 mg capsule RxNorm: 187835 Take 1 Capsule(s) Oral QAM every morning [...] (Concentrated) Insulin 500 unit/mL subcutaneous soln RxNorm: 292168 Inject 100 Unit(s) Subcutaneous AC before meals Three times daily before meals. 07/24/19 25 025 Inactive ammonium lactate 12 % topical cream RxNorm: 180376 Apply 1 Application Topical BID 07/20/19 25 No Stop Date Active ezetimibe 10 mg tablet RxNorm: 588059 Take 1 Tablet(s) Oral QD 07/18/19 25 No Stop Date Active senna 8.6 mg tablet RxNorm: 374069 Take 1 Tablet(s) Oral QD 07/18/19 25 025 Inactive metoprolol succinate ER 200 mg tablet,extended release 24 hr RxNorm: 928614 Take 1 Tablet(s) Oral QD 06/19/19 25 No Stop Date Active pantoprazole 40 mg tablet,delayed release RxNorm: 519588 Take 1 Tablet(s) Oral QAM every morning 06/19/19 25 No Stop Date Active hydralazine 50 mg tablet RxNorm: 378361 Take 1 Tablet(s) Oral QID 06/19/19 25 No Stop Date Active carbamazepine 200 mg tablet RxNorm: 489631 Take 1 Tablet(s) Oral BID 06/19/19 25 No Stop Date Active amlodipine 10 mg tablet RxNorm: 504822 Take 1 Tablet(s) Oral QD 06/19/19 25 No Stop Date Active Eliquis 5 mg tablet RxNorm: 5102168 Take 1 Tablet(s) Oral BID 06/19/19 25 No Stop Date Active pen needle, diabetic 30 gauge x 3/16 RxNorm: Use 1 6 times per day w/insulin 06/14/19 25 026 Active pen needle, diabetic 30 gauge x 3/16 RxNorm: Use 1 needle 6 times per day w/insulin 06/14/19 25 025 Inactive nystatin 100,000 unit/gram topical powder RxNorm: 014774 Apply 1 Application Topical BID as needed abdominal/breast/ groin folds 05/24/19 25 026 Active pregabalin 100 mg capsule RxNorm: 283059 Take 1 Capsule(s) Oral QAM every morning 05/22/19 25 025 Inactive nystatin 100,000 unit/gram topical powder RxNorm: 201809 Apply 1 Application Topical BID as needed abdominal/breast/ groin folds 04/11/20 24 024 Inactive chlorthalidone 25 mg tablet RxNorm: 410832 Take 1 Tablet(s) Oral QAM every morning 04/06/20 No Stop Date Active pregabalin 150 mg capsule RxNorm: 196501 Take 1 Capsule(s) Oral QHS every night at bedtime 03/31/20 024 Inactive Vascepa 1 gram capsule RxNorm: 1583681 Take 2 Capsule(s) Oral BID 03/30/20 025 Active rosuvastatin 40 mg tablet RxNorm: 045474 1 TAB ORALLY EVERY EVENING (DX:CORONARY ARTERY DISEASE) 03/28/20 No Stop Date Active venlafaxine ER 75 mg capsule,extended release 24 hr RxNorm: 996535 3 CAPS (225MG) ORALLY DAILY (DX: MOOD DISORDER) 03/28/20 No Stop Date Active pregabalin 100 mg capsule RxNorm: 546246 Take 1 Capsule(s) Oral QAM every morning 03/20/20 024 Inactive cholecalciferol (vitamin D3) 1,250 mcg (50,000 unit) capsule RxNorm: 547124 Take 1 Capsule(s) Oral QW once a [...] Insulin 100 unit/mL (3 mL) subcutaneous RxNorm: 9172994 Inject 40 Unit(s) Subcutaneous BID 03/07/20 025 Inactive Please dispense one month supply. Humulin R U-500 (Concentrated) Insulin 500 unit/mL subcutaneous soln RxNorm: 295474 Inject 100 Unit(s) Subcutaneous AC before meals [...] PRN) to be use with new Accu [place] meter 03/04/20 Inactive ok to substitute with any covered alternative test strip FreeStyle Chema 2 Sensor kit RxNorm: Use UD as directed 03/02/20 Inactive Pen Needle 30 gauge x 516 RxNorm: Pen(s) Use 1 needle as directed TID 03/02/20 Inactive nystatin 100,000 unit/gram topical powder RxNorm: 582586 Apply 1 Application Topical BID as needed [...] (Concentrated) Insulin 500 unit/mL subcutaneous soln RxNorm: 433405 Inject 100 Unit(s) Subcutaneous TID 02/17/20 24 024 Inactive Humulin R U-500 (Concentrated) Insulin 500 unit/mL subcutaneous soln RxNorm: 546624 Inject 100 Unit(s) Subcutaneous TID 02/10/20 24 024 Inactive Basaglar ValorieikPen U-100 Insulin 100 unit/mL (3 mL) subcutaneous RxNorm: 7147323 Inject 30 Unit(s) Subcutaneous BID 02/10/20 24 024 Inactive Please dispense one month supply. pregabalin 100 mg capsule RxNorm: 492521 Take 1 Capsule(s) Oral QAM every morning 02/07/20 24 024 Inactive isosorbide mononitrate ER 60 mg tablet,extended release 24 hr RxNorm: 474246 Take 1 Tablet(s) Oral QD 02/01/20 24 025 Active aripiprazole 15 mg tablet RxNorm: 403069 Take 1/2 Tablet(s) Oral QD 02/01/20 24 025 Active torsemide 20 mg tablet RxNorm: 235768 1 TAB ORALLY DAILY (DX: EDEMA) 01/27/20 No Stop Date Active potassium chloride ER 20 mEq tablet,extended release(part/cryst) RxNorm: 0928218 2 TABS (40MEQ) ORALLY TWICE DAILY (DX: HYPOKALEMIA) 01/27/20 24 025 Inactive cephalexin 500 mg capsule RxNorm: 831862 Take 1 Capsule(s) Oral QID 12/17/19 24 024 Inactive cephalexin 500 mg capsule RxNorm: 689927 Take 1 Capsule(s) Oral QID 12/17/19 24 024 Inactive acetaminophen 500 mg tablet RxNorm: 645837 (MAX APAP:4GM/24HR) Take 1 Tablet(s) Oral TID as needed for pain 12/10/19 24 024 Inactive torsemide 20 mg tablet RxNorm: 030072 Take 1 Tablet(s) Oral QD 10/26/19 24 024 Inactive potassium chloride ER 20 mEq tablet,extended release RxNorm: 302880 Take 2 Tablet(s) Oral BID 10/26/19 24 06/11/2 024 Inactive torsemide 20 mg tablet RxNorm: 096657 Take 1 Tablet(s) Oral QD 10/26/19 24 Inactive potassium chloride ER 20 mEq tablet,extended release RxNorm: 999523 Take 2 Tablet(s) Oral BID 10/26/19 24 Inactive Artificial Tears (PF) 0.1 %-0.3 % drops in a dropperette RxNorm: 325507 Apply 1-2 Drop(s) Both eyes BID as needed 09/28/19 24 Inactive erythromycin 5 mg/gram (0.5 %) eye ointment RxNorm: 785830 Apply 1 Application Both eyes QHS every night at bedtime Instill ~1 cm ribbon into affected eye 09/28/19 24 Inactive Artificial Tears (PF) 0.1 %-0.3 % drops in a dropperette RxNorm: 457918 Apply 1-2 Drop(s) Both eyes BID as needed 09/28/19 Inactive erythromycin 5 mg/gram (0.5 %) eye ointment RxNorm: 834404 Apply 1 Application Both eyes QHS every night at bedtime Instill ~1 cm ribbon into affected eye 09/28/19 24 Inactive acetaminophen 500 mg tablet RxNorm: 369673 (MAX APAP:4GM/24HR) Take 1 Tablet(s) Oral TID as needed for pain 09/24/19 24 Inactive carvedilol 25 mg tablet RxNorm: 760245 Take 1 Tablet(s) Oral QD 09/08/19 24 No Stop Date Active pregabalin 100 mg capsule RxNorm: 751807 Take 1 Capsule(s) Oral QAM every morning 09/07/19 24 024 Inactive bisacodyl 10 mg rectal suppository RxNorm: 578943 Insert 1 Suppository Rectal QD as needed 07/13/19 24 No Stop Date Active ketoconazole 2 % shampoo RxNorm: 337898 Apply 1 Application Topical UD as directed 07/13/19 24 No Stop Date Active Ozempic 1 mg/dose (4 mg/3 mL) subcutaneous pen injector RxNorm: 5522541 Inject 1 Milligram(s) Subcutaneous QW once a week 07/13/19 No Stop Date Active Guaifenesin AC 10 mg-100 mg/5 mL oral liquid RxNorm: 773052 Take 10 Milliliter(s) Oral Q4H every four hours as needed 07/13/19 No Stop Date Active hydrocortisone 2.5 % topical cream RxNorm: 668322 Apply 1 Application Topical BID as needed 07/13/19 No Stop Date Active rosuvastatin 40 mg tablet RxNorm: 346376 Take 1 Tablet(s) Oral QPM every evening 07/13/19 024 Inactive ezetimibe 10 mg tablet RxNorm: 262435 Take 1 Tablet(s) Oral QD 07/13/19 24 025 Inactive polyethylene glycol 3350 17 gram/dose oral powder RxNorm: 187037 Take 17 Gram(s) Oral BID as needed mix in 4-8ox water 07/13/19 24 025 Inactive aripiprazole 15 mg tablet RxNorm: 323707 Take 1/2 Tablet(s) Oral QD 07/13/19 24 024 Inactive isosorbide mononitrate ER 60 mg tablet,extended release 24 hr RxNorm: 045167 Take 1 Tablet(s) Oral QD 07/13/19 24 024 Inactive ammonium lactate 12 % topical cream RxNorm: 987211 Apply 1 Application Topical BID 07/13/19 24 025 Inactive rosuvastatin 20 mg sprinkle capsule RxNorm: 2353745 Take 1 Capsule(s) Oral QD 07/13/19 24 025 Inactive Vascepa 1 gram capsule RxNorm: 9660888 Take 2 Capsule(s) Oral BID 07/13/19 24 024 Inactive venlafaxine ER 75 mg capsule,extended release 24 hr RxNorm: 442692 Take 3 Capsule(s) Oral QD 07/13/19 24 024 Inactive Basaglar KwikPen U-100 Insulin 100 unit/mL (3 mL) subcutaneous RxNorm: 2896443 Inject 30U SubQ twice daily 07/07/19 24 024 Inactive Please dispense one month supply. Basaglar KwikPen U-100 Insulin 100 unit/mL (3 mL) subcutaneous RxNorm: 8895639 Inject 30U SubQ twice daily 07/07/19 24 024 Inactive Please dispense one month supply. pregabalin 150 mg capsule RxNorm: 214995 Take 1 Capsule(s) Oral QHS every night at bedtime 07/05/19 24 024 Inactive pregabalin 150 mg capsule RxNorm: 898121 Take 1 Capsule(s) Oral QHS every night at bedtime 07/05/19 24 024 Inactive polyethylene glycol 3350 17 gram/dose oral powder RxNorm: 474838 Take 1 Packet Oral QD as needed (1 packet = 17g) mix with 4-8oz of liquid 06/15/19 024 Inactive bisacodyl 10 mg rectal suppository RxNorm: 541651 Insert one suppository per rectum once daily as needed for constipation 06/15/19 24 024 Inactive bisacodyl 10 mg rectal suppository RxNorm: 239656 Insert one suppository per rectum once daily as needed for constipation 06/15/19 24 024 Inactive pregabalin 100 mg capsule RxNorm: 010811 Take 1 Capsule(s) Oral QAM every morning 04/27/20 23 024 Inactive Levemir FlexPen 100 unit/mL (3 mL) solution subcutaneous insulin pen RxNorm: 273704 Inject 30 Unit(s) Subcutaneous BID 04/27/20 23 024 Inactive rosuvastatin 40 mg tablet RxNorm: 916500 Take 1 Tablet(s) Oral QPM every evening 04/16/20 23 024 Inactive D/C rosuvastatin 20mg venlafaxine ER 75 mg capsule,extended release 24 hr RxNorm: 433235 Take 3 Capsule(s) Oral QD 04/14/20 23 023 Inactive pregabalin 100 mg capsule RxNorm: 343521 Take 1 Capsule(s) Oral QAM every morning [...] strip clotrimazole 1 % topical cream RxNorm: 779626 Take apply topically to abdominal folds twice daily for 14 days 03/12/20 024 Inactive Ozempic 1 mg/dose (4 mg/3 mL) subcutaneous pen injector RxNorm: 6603785 Inject 1 Milligram(s) Subcutaneous QW once a week 03/11/20 23 023 Inactive rosuvastatin 20 mg tablet RxNorm: 474056 Take 1 Tablet(s) Oral QD 02/26/20 23 023 Inactive d/c pravastatin 80mg Ozempic 1 mg/dose (4 mg/3 mL) subcutaneous pen injector RxNorm: 8270692 Inject 1 Milligram(s) Subcutaneous QW once a week 02/20/20 23 023 Inactive pregabalin 150 mg capsule RxNorm: 517908 Take 1 Capsule(s) Oral HS at bed time 02/19/20 23 023 Inactive pregabalin 100 mg capsule RxNorm: 167127 Take 1 Capsule(s) Oral QAM every morning 02/18/20 023 Inactive venlafaxine ER 75 mg capsule,extended release 24 hr RxNorm: 788586 Take 3 Capsule(s) Oral QD 02/04/20 23 023 Inactive FreeStyle Chema 2 Sensor kit RxNorm: use as directed 02/04/20 23 023 Inactive FreeStyle Chema 2 Sensor kit RxNorm: use as directed 02/04/20 23 024 Inactive fluconazole 150 mg tablet RxNorm: 918312 Take 1 Tablet(s) Oral on day 3 and on day 6 02/03/20 23 024 Inactive venlafaxine ER 150 mg capsule,extended release 24 hr RxNorm: 899108 Take 1 Capsule(s) Oral QD 02/03/20 23 023 Inactive chlorthalidone 25 mg tablet RxNorm: 748573 Take 1 Tablet(s) Oral QAM every morning 02/03/20 024 Inactive acetaminophen 500 mg tablet RxNorm: 578582 1 TABLET ORALLY 3 TIMES DAILY (MAX APAP:4GM/24HR) 12/15/19 023 Inactive potassium chloride ER 20 mEq tablet,extended release RxNorm: 247536 Take 1 Tablet(s) Oral BID 12/09/19 024 Inactive d/c 20mEq once daily (sent from hospital) clotrimazole 1 % topical cream RxNorm: 824876 apply 1g topically to top of feet and in between toes BID 12/09/19 025 Inactive nystatin 100,000 unit/gram topical powder RxNorm: 611623 APPLY TO AFFECTED AREAS TOPICALLY 2 TIMES DAILY 11/21/19 023 Inactive Nystop 100,000 unit/gram topical powder RxNorm: 712795 Apply to abd folds, under breasts and L side of groin Topical BID x 14 days, then BID PRN 11/20/19 023 Inactive dx: yeast dermatitis [place] Ultra Strength 4 %-30 %-10 % topical cream RxNorm: 406749 Apply 1 Gram(s) Topical QID PRN to feet and legs for neuropathic pain 11/11/19 024 Inactive clotrimazole 1 % topical cream RxNorm: 270999 Apply 1/2 Gram(s) Topical BID Apply to affected areas of groin, periarea, and abdominal topically 2 times daily 11/10/19 23 023 Inactive hydrocortisone 2.5 % topical cream RxNorm: 584370 Apply 1/2 Gram(s) Topical BID as needed 11/10/19 024 Inactive Levemir FlexPen 100 unit/mL (3 mL) solution subcutaneous insulin pen RxNorm: 956330 Inject 30 Unit(s) Subcutaneous BID 10/07/19 23 023 Inactive Humulin R U-500 (Concentrated) Insulin 500 unit/mL subcutaneous soln RxNorm: 738686 Inject 100 Unit(s) Subcutaneous TID 05/23 024 Inactive Ozempic 0.25 mg or 0.5 mg (2 mg/3 mL) subcutaneous pen injector RxNorm: 0661576 Inject 1/2 Milligram(s) Subcutaneous QW once a week 10/07/19 024 Inactive aripiprazole 15 mg tablet RxNorm: 707020 1/2 TAB (7.5MG) ORALLY DAILY (DX:MAJOR DEPRESSIVE DISORDER) 09/23/19 023 Inactive Accu-Chek Guide test strips RxNorm: Use 1 Test Strip QID 09/15/19 023 Inactive ok to substitute with any covered alternative test strip Lancets,Thin 28 gauge RxNorm: Use 1 as directed QID 09/15/19 023 Inactive torsemide 20 mg tablet RxNorm: 525219 Take 1 Tablet(s) Oral BID 09/09/19 024 Inactive d/c once daily dosing carvedilol 25 mg tablet RxNorm: 752350 Take 1 Tablet(s) Oral QD 08/25/19 23 024 Inactive pregabalin 150 mg capsule RxNorm: 952885 1 Capsule(s) Oral HS at bed time 08/18/19 023 Inactive pregabalin 100 mg capsule RxNorm: 405710 1 Capsule(s) Oral QAM every morning 08/18/19 023 Inactive carvedilol 25 mg tablet RxNorm: 915388 1 Tablet(s) Oral QD 07/28/19 023 Inactive lisinopril 20 mg tablet RxNorm: 668826 Give 1 Tablet(s) Oral QD 07/28/19 23 023 Inactive Lyrica 150 mg capsule RxNorm: 347681 Take 1 Capsule(s) Oral QHS every night at bedtime 07/19/19 023 Inactive d/c 100mg dose Diflucan 150 mg tablet RxNorm: 689664 Take 1 Tablet(s) Oral QD repeat on day 3 and 6 07/19/19 23 023 Inactive pregabalin 100 mg capsule RxNorm: 896819 Take 1 Capsule(s) Oral QAM every morning 07/19/19 23 023 Inactive gatifloxacin 0.5 % eye drops RxNorm: 169509 Instill 1 Drop(s) as directed TID Instill 1 drop in to affected eye(s) starting 1 day prior to surgery and continue until gone (do not exceed 4 weeks). 07/13/19 23 023 Inactive carvedilol 25 mg tablet RxNorm: 304209 2 Tablet(s) Oral BID 07/13/19 023 Inactive Humulin R Regular U-100 Insulin 100 unit/mL injection solution RxNorm: 278198 85 Unit(s) Injection TID 07/13/19 23 023 Inactive ketorolac 0.5 % eye drops RxNorm: 740047 Instill 1 Drop(s) as directed QID Instill 1 drop into affected eye(s) 4 times daily starting 1 day prior to surgery and continue until gone (do not exceed 4 weeks). 07/13/19 023 Inactive Diflucan 150 mg tablet RxNorm: 092498 Take 1 Tablet(s) Oral QD repeat on day 3 and 6 06/30/19 23 023 Inactive Accu-Chek Guide test strips RxNorm: Use 1 Test Strip QID Use 1 test strip to monitor blood glucose 4 times daily and as needed. Dx:E11.42. 06/23/19 23 023 Inactive ok to substitute with any covered alternative test strip dextromethorphan-gu aifenesin 10 mg-100 mg/5 mL oral liquid RxNorm: 257774 Take 10 Milliliter(s) Oral every 4 hours as needed for cough 06/19/19 23 023 Inactive dextromethorphan-gu aifenesin 10 mg-100 mg/5 mL oral liquid RxNorm: 163960 Take 10 Milliliter(s) Oral every 4 hours as needed for cough 06/19/19 23 023 Inactive Lyrica 150 mg capsule RxNorm: 873593 Take 1 Capsule(s) Oral QHS every night at bedtime 06/18/19 23 023 Inactive d/c 100mg dose aripiprazole 15 mg tablet RxNorm: 684710 1/2 TAB (7.5MG) ORALLY DAILY (DX:MAJOR DEPRESSIVE DISORDER) 06/05/19 023 Inactive pregabalin 100 mg capsule RxNorm: 301902 1 Capsule(s) Oral QAM every morning 06/02/19 023 Inactive Banophen 50 mg capsule RxNorm: 3157126 Take 1 Capsule(s) Oral Q6H every 6 hours as needed 05/19/19 No Stop Date Active Novolog Flexpen U-100 Insulin aspart 100 unit/mL (3 mL) subcutaneous RxNorm: 4991415 Inject 10 Unit(s) Subcutaneous QHS every night at bedtime with nighttime snack 04/08/20 022 Inactive Novolog Flexpen U-100 Insulin aspart 100 unit/mL (3 mL) subcutaneous RxNorm: 6452724 Inject 42 Unit(s) Subcutaneous TID in addition to sliding scale 04/08/20 022 Inactive d/c 36u albuterol sulfate HFA 90 mcg/actuation aerosol inhaler RxNorm: 2333498 Take 2 Puff(s) Inhalation Q4H every four hours as needed as needed for SOB, cough, or wheezing 04/07/20 030 Active Banophen 50 mg capsule RxNorm: 9929939 Take 1 Capsule(s) Oral Q6H every 6 hours as needed 04/06/20 023 Inactive diphenhydramine 50 mg tablet RxNorm: 2242167 Take 1 Tablet(s) Oral Q6H every 6 hours as needed 04/06/20 22 022 Inactive diphenhydramine 50 mg tablet RxNorm: 3017782 1 Tablet(s) Oral Q6H every 6 hours as needed 04/06/20 022 Inactive Abilify 15 mg tablet RxNorm: 970860 1/2 Tablet(s) Oral QD 03/10/20 023 Inactive Shingrix (PF) 50 mcg/0.5 mL intramuscular suspension, kit RxNorm: 0065802 Administer 1/2 Milliliter(s) Intramuscular QD one time shingrix step 2 ( step 1 given 11/04/21) WITH needle - Nursing please administer upon arrival and once administered post a bridge message with date of administration, watch and clock repair clerk, expiration date, and lot# so we can update [facility] 02/18/20 22 022 Inactive dispense with needle Shingrix (PF) 50 mcg/0.5 mL intramuscular suspension, kit RxNorm: 9354551 Administer 1/2 Milliliter(s) Intramuscular QD one time shingrix step 2 ( step 1 given 11/04/21) WITH needle - Nursing please administer upon arrival and once administered post a bridge message with date of administration, watch and clock repair clerk, expiration date, and lot# so we can update [facility] 02/18/20 22 022 Inactive dispense with needle Lyrica 100 mg capsule RxNorm: 464465 Take 1 Capsule(s) Oral QAM every morning 01/08/20 22 022 Inactive d/c 50mg dose acetaminophen 500 mg tablet RxNorm: 207288 Take 1 Tablet(s) Oral TID 01/08/20 22 022 Inactive d/c PRN order Lyrica 150 mg capsule RxNorm: 674137 Take 1 Capsule(s) Oral QHS every night at bedtime 01/08/20 22 023 Inactive d/c 100mg dose polyethylene glycol 3350 17 gram/dose oral powder RxNorm: 567629 Take 17=1 capful Gram(s) Oral QD mix with 4-8oz of liquid 01/08/20 22 025 Inactive take this in addition to BID prn order Abilify 5 mg tablet RxNorm: 910475 Take 1 Tablet(s) Oral QD take 1 tab po QD #30 refill 5 dx: MDD 12/12/19 22 022 Inactive Abilify 5 mg tablet RxNorm: 913673 Take 1 Tablet(s) Oral QD take 1 tab po QD #30 refill 5 dx: MDD 12/12/19 22 022 Inactive Novolog Flexpen U-100 Insulin aspart 100 unit/mL (3 mL) subcutaneous RxNorm: 2300911 Inject 42 Unit(s) Subcutaneous TID in addition to sliding scale 12/10/19 22 022 Inactive d/c 36u chlorthalidone 25 mg tablet RxNorm: 779164 Take 1 Tablet(s) Oral QAM every morning 12/10/19 22 023 Inactive pregabalin 50 mg capsule RxNorm: 023208 Take 1 Capsule(s) Oral QAM every morning 11/12/19 22 Inactive tetanus-diphtheria toxoids-Td 2 Lf unit-2 Lf unit/0.5 mL IM suspension RxNorm: 139 Take 0.5 Miscellaneous Intramuscular 11/12/19 22 022 Inactive need tdap - nursing to administer upon arrival pregabalin 50 mg capsule RxNorm: 128434 Take 1 Capsule(s) Oral QAM every morning 10/16/19 22 022 Inactive pregabalin 50 mg capsule RxNorm: 773535 Take 1 Capsule(s) Oral QAM every morning 10/16/19 22 022 Inactive pregabalin 50 mg capsule RxNorm: 662505 1 Capsule(s) Oral QAM every morning 10/15/19 22 022 Inactive Shingrix (PF) 50 mcg/0.5 mL intramuscular suspension, kit RxNorm: 0730409 Administer 1/2 Milliliter(s) Intramuscular one time Nursing please administer upon arrival and once administered post a bridge message with date of administration, watch and clock repair clerk, expiration date, and lot# so we can update [facility]. 10/09/19 22 022 Inactive shingrix step 1 Shingrix (PF) 50 mcg/0.5 mL intramuscular suspension, kit RxNorm: 7346699 Administer 1/2 Milliliter(s) Intramuscular one time Nursing please administer upon arrival and once administered post a bridge message with date of administration, watch and clock repair clerk, expiration date, and lot# so we [...] aspart 100 unit/mL (3 mL) subcutaneous RxNorm: 7977695 Inject 10 Unit(s) Subcutaneous QHS every night at bedtime with nighttime snack 10/08/19 22 Inactive Shingrix (PF) 50 mcg/0.5 mL intramuscular suspension, kit RxNorm: 2796266 ADMINISTER 2-DOSE SERIES PER CDC GUIDELINES 10/08/19 22 Active Shingrix (PF) 50 mcg/0.5 mL intramuscular suspension, kit RxNorm: 7751478 ADMINISTER 2-DOSE SERIES PER CDC GUIDELINES 10/08/19 22 Inactive Novolog Flexpen U-100 Insulin aspart 100 unit/mL (3 mL) subcutaneous RxNorm: 2785634 Inject 36 Unit(s) Subcutaneous TID in addition to sliding scale 10/08/19 22 Inactive cholecalciferol (vitamin D3) 1,250 mcg (50,000 unit) capsule RxNorm: 309914 Take 1 Capsule(s) Oral QW once a week 10/08/19 024 Inactive Novofine Autocover 30 gauge x 1/3 needle RxNorm: Use 1 Miscellaneous UD as directed Use 1 needle as directed to administer insulin 5 times a day Dx:E11.42. 10/03/19 022 Inactive ok to substitute with any covered alternative pen needle benzoyl peroxide 10 % topical cleanser RxNorm: 002751 Apply 1 Application Topical QD apply to face, wash rinse and dry once daily (may change to QOD if drying) 08/19/19 22 022 Inactive (%covered by insurance) #60ml refill 11 dx: acne benzoyl peroxide 10 % topical cleanser RxNorm: 905753 Apply 1 Application Topical QD apply to face, wash rinse and dry once daily (may change to QOD if drying) 08/19/19 22 022 Inactive (%covered by insurance) #60ml refill 11 dx: acne benzoyl peroxide 10 % topical cleanser RxNorm: 086234 Apply 1 Application Topical QD apply to face, wash rinse and dry once daily (may change to QOD if drying) 08/19/19 22 022 Inactive (%covered by insurance) #60ml refill 11 dx: acne Lyrica 50 mg capsule RxNorm: 303845 Take 1 Capsule(s) Oral QAM every morning Take 1 capsule by mouth once daily 08/19/19 22 022 Inactive benzoyl peroxide 10 % topical cleanser RxNorm: 754660 Apply 1 Application Topical QD apply to face, wash rinse and dry once daily (may change to QOD if drying) 08/19/19 22 022 Inactive (%covered by insurance) #60ml refill 11 dx: acne Lyrica 100 mg capsule RxNorm: 072113 Take 1 Capsule(s) Oral QHS every night at bedtime Take 1 capsule by mouth once daily at bedtime 08/19/19 022 Inactive Lyrica 100 mg capsule RxNorm: 533380 Take 1 Capsule(s) Oral QHS every night at bedtime Take 1 capsule by mouth once daily at bedtime 08/16/19 22 022 Inactive Lyrica 50 mg capsule RxNorm: 936228 Take 1 Capsule(s) Oral QAM every morning Take 1 capsule by mouth once daily 08/16/19 22 022 Inactive Levemir FlexTouch U-100 Insulin 100 unit/mL (3 mL) subcutaneous pen RxNorm: 033427 Inject 86 Unit(s) Subcutaneous BID 08/05/19 22 022 Inactive d/c 83units BID Lyrica 100 mg capsule RxNorm: 671722 Take 1 Capsule(s) Oral QHS every night at bedtime Take 1 capsule by mouth once daily at bedtime 07/14/19 22 022 Inactive Lyrica 50 mg capsule RxNorm: 536076 Take 1 Capsule(s) Oral QAM every morning Take 1 capsule by mouth once daily 07/14/19 22 022 Inactive Levemir FlexTouch U-100 Insulin 100 unit/mL (3 mL) subcutaneous pen RxNorm: 591685 Inject 83 Unit(s) Subcutaneous BID 07/08/19 22 [...] test strip hydralazine 50 mg tablet RxNorm: 088326 Take 1 Tablet(s) Oral QID 05/05/20 21 022 Inactive venlafaxine ER 225 mg tablet,extended release 24 hr RxNorm: 976907 Take 1 Tablet(s) Oral QD 05/05/20 21 Inactive venlafaxine ER 225 mg tablet,extended release 24 hr RxNorm: 737494 Take 1 Tablet(s) Oral QD 05/05/20 21 022 Inactive isosorbide mononitrate ER 30 mg tablet,extended release 24 hr RxNorm: 581744 Take 1 Tablet(s) Oral QD 05/05/20 024 Inactive hydralazine 50 mg tablet RxNorm: 023804 Take 1 Tablet(s) Oral QID 05/05/20 021 Inactive aspirin 81 mg tablet,delayed release RxNorm: 773929 Take 1 Tablet(s) Oral QD 03/31/20 022 Inactive Vitamin D2 1,250 mcg (50,000 unit) capsule RxNorm: 9927941 Take 1 Capsule(s) Oral QW once a week x 12 weeks 03/31/20 022 Inactive Vitamin D2 1,250 mcg (50,000 unit) capsule RxNorm: 2712499 Take 1 Capsule(s) Oral QW once a week 03/31/20 021 Inactive Zetia 10 mg tablet RxNorm: 836544 Take 1 Tablet(s) Oral QD 03/31/20 024 Inactive Zetia 10 mg tablet RxNorm: 142505 Take 1 Tablet(s) Oral QD 03/31/20 021 Inactive hydralazine 25 mg tablet RxNorm: 139151 Take 1 Tablet(s) Oral QID 03/31/20 021 Inactive hydralazine 25 mg tablet RxNorm: 503338 Take 1 Tablet(s) Oral QID 03/31/20 021 Inactive hydralazine 10 mg tablet RxNorm: 093129 Take 1 Tablet(s) Oral QID 03/03/20 021 Inactive cephalexin 500 mg tablet RxNorm: 036138 Take 1 Tablet(s) Oral QID 02/27/20 021 Inactive cephalexin 500 mg tablet RxNorm: 660401 Take 1 Tablet(s) Oral QID 02/27/20 021 Inactive lisinopril 40 mg tablet RxNorm: 818978 Take 1 Tablet(s) Oral QD 02/11/20 21 023 Inactive Eliquis 5 mg tablet RxNorm: 3423315 Take 1 Tablet(s) Oral BID 01/05/20 21 025 Inactive Eliquis 5 mg tablet RxNorm: 8326641 Take 2 Tablet(s) Oral QD 01/01/20 21 021 Inactive Lyrica 50 mg capsule RxNorm: 229377 Take 1 Capsule(s) Oral QAM every morning 12/24/19 21 021 Inactive Lyrica 100 mg capsule RxNorm: 996289 Take 1 Capsule(s) Oral QHS every night at bedtime 12/24/19 21 021 Inactive clotrimazole 1 % topical cream RxNorm: 921794 Apply to right foot and toes Topical BID 12/04/19 21 023 Inactive metoprolol succinate ER 200 mg tablet,extended release 24 hr RxNorm: 694583 Take 1 Tablet(s) Oral QD 12/04/19 21 023 Inactive ciprofloxacin 500 mg tablet RxNorm: 669102 Take 1 Tablet(s) Oral QD 11/30/19 21 021 Inactive DX ofloxacin otic drops Accu-Chek Guide test strips RxNorm: USE 1 TO CHECK GLUCOSE 4 TIMES DAILY AND NEEDED 11/15/19 21 023 Inactive Blood Glucose Test strips RxNorm: Use 1 Test Strip QID at PRN 11/05/19 21 023 Inactive E11.42 lisinopril 30 mg tablet RxNorm: 397611 Take 1 Tablet(s) Oral QD 10/30/19 021 Inactive lisinopril 20 mg tablet RxNorm: 728350 Take 1 Tablet(s) Oral QD 10/23/19 21 021 Inactive lisinopril 20 mg tablet RxNorm: 655773 Take 1 Tablet(s) Oral QD 10/23/19 21 021 Inactive lisinopril 10 mg tablet RxNorm: 432309 Take 1 Tablet(s) Oral QD 10/02/19 21 021 Inactive icosapent ethyl 1 gram capsule RxNorm: 3048830 Take 2 Capsule(s) (2 gm) Oral BID with meals 09/12/19 21 024 Inactive Okay to dispense one 2gm tab if you have that available. icosapent ethyl 1 gram capsule RxNorm: 9681932 Take 2 Capsule(s) Oral BID 09/12/19 21 021 Inactive Okay to dispense one 2gm tab if you have that available. amlodipine 10 mg tablet RxNorm: 393521 Take 1 Tablet(s) Oral QD 09/04/19 21 021 Inactive aspirin 81 mg tablet,delayed release RxNorm: 712763 Take 1 Tablet(s) Oral QD 09/04/19 21 021 Inactive Levemir FlexTouch U-100 Insulin 100 unit/mL (3 mL) subcutaneous pen RxNorm: 342233 Inject 150 Unit(s) Subcutaneous BID 09/04/19 21 022 Inactive venlafaxine ER 150 mg tablet,extended release 24 hr RxNorm: 475272 Take 1 Tablet(s) Oral QD 09/04/19 21 021 Inactive clotrimazole-betame thasone 1 %-0.05 % topical cream RxNorm: 758311 Apply to rash on red area on left abdomen/chest Topical BID 08/10/19 21 021 Inactive amlodipine 5 mg tablet RxNorm: 747906 Take 1 Tablet(s) Oral QD 07/31/19 21 021 Inactive cephalexin 500 mg tablet RxNorm: 548786 Take 1 Tablet(s) Oral BID BID - Twice Daily 07/31/19 21 021 Inactive Start 08/01/20 pantoprazole 40 mg tablet,delayed release RxNorm: 472896 Take 1 Tablet(s) Oral QAM every morning 07/08/19 025 Inactive clopidogrel 75 mg tablet RxNorm: 216278 Take 1 Tablet(s) Oral QD 07/08/19 21 021 Inactive Blood Glucose Test strips RxNorm: Use 1 Test Strip QID at PRN 07/08/19 21 021 Inactive E11.42 senna 8.6 mg tablet RxNorm: 336564 Take 1 Tablet(s) Oral QD 07/08/19 21 025 Inactive Novolog Flexpen U-100 Insulin aspart 100 unit/mL (3 mL) subcutaneous RxNorm: 6108148 Administer per sliding scale Milliliter(s) Subcutaneous TID 151-200: 10 u; 201-250: 20 u; 251-300: 30 u; 301-350: 40 u; 351-400: 50 u. 07/08/19 022 Inactive lisinopril 5 mg tablet RxNorm: 124222 Take 1 Tablet(s) Oral QD 07/08/19 021 Inactive Novolog Flexpen U-100 Insulin aspart 100 unit/mL (3 mL) subcutaneous RxNorm: 8081617 Inject 85 Unit(s) Subcutaneous TID 07/08/19 022 Inactive pravastatin 80 mg tablet RxNorm: 586054 Take 1 Tablet(s) Oral QHS every night at bedtime 07/08/19 023 Inactive clotrimazole 1 % topical cream RxNorm: 734225 Apply to bilateral groin areas Topical BID 07/08/19 022 Inactive metoprolol succinate ER 200 mg tablet,extended release 24 hr RxNorm: 641546 Take 1 Tablet(s) Oral QD 07/08/19 021 Inactive Vitamin D3 25 mcg (1,000 unit) tablet RxNorm: 870470 Take 1 Tablet(s) Oral QD 07/08/19 021 Inactive isosorbide dinitrate 30 mg tablet RxNorm: 204524 Take 1 Tablet(s) Oral QD 07/08/19 021 Inactive carbamazepine 200 mg tablet RxNorm: 464552 Take 1 Tablet(s) Oral BID 07/08/19 025 Inactive Levemir FlexTouch U-100 Insulin 100 unit/mL (3 mL) subcutaneous pen RxNorm: 474091 Inject 140 Unit(s) Subcutaneous BID 07/08/19 021 Inactive torsemide 20 mg tablet RxNorm: 857217 Take 1 Tablet(s) Oral QD 07/08/19 023 Inactive venlafaxine 75 mg tablet RxNorm: 987885 Take 1 Tablet(s) Oral QD 07/08/19 021 Inactive acetaminophen 500 mg tablet RxNorm: 659631 Take 1 Tablet(s) Oral TID as needed for headache 06/18/19 021 Inactive acetaminophen 500 mg tablet RxNorm: 070536 Take 1 Tablet(s) Oral TID as needed for headache 06/18/19 21 021 Inactive Lyrica 100 mg capsule RxNorm: 920947 Take 1 Capsule(s) Oral QHS every night at bedtime 06/11/19 21 021 Inactive Lyrica 50 mg capsule RxNorm: 389633 Take 1 Capsule(s) Oral QAM every morning 06/10/19 21 021 Inactive hydrocortisone 2.5 % topical cream RxNorm: 659422 Apply to bilateral groin creases Topical BID 05/15/20 20 021 Inactive clotrimazole 1 % topical cream RxNorm: 822117 Apply to bilateral groin areas Topical BID 05/15/20 20 021 Inactive Lyrica 50 mg capsule RxNorm: 273328 Take 1 Capsule(s) Oral QAM every morning 05/14/20 20 020 Inactive Lyrica 100 mg capsule RxNorm: 202785 Take 1 Capsule(s) Oral QHS every night [...] Inactive Nystop 100,000 unit/gram topical powder RxNorm: 664498 Apply to abd folds, under breasts and L side of groin Topical BID x 14 days, then BID PRN 04/08/20 20 020 Inactive dx: yeast dermatitis Lyrica 100 mg capsule RxNorm: 961705 Take 1 Capsule(s) Oral QHS every night at bedtime 03/13/20 20 Inactive Lyrica 50 mg capsule RxNorm: 784207 Take 1 Capsule(s) Oral QAM every morning 03/13/20 20 Inactive ketoconazole 2 % shampoo RxNorm: 072817 Apply Topical two times a week with showers 03/11/20 20 Inactive cholecalciferol (vitamin D3) 50 mcg (2,000 unit) tablet RxNorm: 402157 Take 1 Tablet(s) Oral QD 03/11/20 20 Inactive Zetia 10 mg tablet RxNorm: 576595 Take 1 Tablet(s) Oral QD 03/07/20 20 021 Inactive Zetia 10 mg tablet RxNorm: 556354 Take 1 Tablet(s) Oral QD 03/07/20 20 Inactive Lyrica 50 mg capsule RxNorm: 672262 Take 1 Capsule(s) Oral QAM every morning 02/15/20 20 Inactive Lyrica 100 mg capsule RxNorm: 997562 Take 1 Capsule(s) Oral QHS every night at bedtime 02/15/20 20 Inactive Lyrica 100 mg capsule RxNorm: 406453 Take 1 Capsule(s) Oral QHS every night at bedtime 02/15/20 20 Inactive Lyrica 50 mg capsule RxNorm: 938716 Take 1 Capsule(s) Oral QAM every morning 02/15/20 20 Inactive venlafaxine ER 75 mg capsule,extended release 24 hr RxNorm: 338158 Take 3 Capsule(s) Oral QD 06/12/19 22 023 Inactive polyethylene glycol 3350 17 gram/dose oral powder RxNorm: 950039 Take 17=1 capful Gram(s) Oral BID as needed mix with 4-8oz of liquid 06/12/19 22 024 Inactive icosapent ethyl 1 gram capsule RxNorm: 5872941 Take 2 Capsule(s) (2 gm) Oral BID with meals 10/07/19 23 023 Inactive Okay to dispense one 2gm tab if you have that available. Levemir FlexTouch U-100 Insulin 100 unit/mL (3 mL) subcutaneous pen RxNorm: 892400 Inject 80 Unit(s) Subcutaneous BID 07/14/19 23 023 Inactive metoprolol succinate ER 200 mg tablet,extended release 24 hr RxNorm: 866557 Take 1 Tablet(s) Oral QD 08/12/19 025 Inactive loperamide 2 mg capsule RxNorm: 816498 Take 1 Capsule(s) Oral QID as needed 09/06/19 025 Inactive hydralazine 50 mg tablet RxNorm: 405587 Take 1 Tablet(s) Oral QID 08/12/19 025 Inactive Soft Touch Lancets RxNorm: miscellaneous 03/04/20 025 Inactive Novolog Flexpen U-100 Insulin aspart 100 unit/mL (3 mL) subcutaneous RxNorm: 7743445 Insert 30 Unit(s) Subcutaneous TID with meals [...] Planned Activity Notes Codes Status Date Referral: [facility] [address] [id number] [place] Referral Records requested X2 10/20/2024 Referral: [facility]/Endocrinology WPtel: [address] [facility] 3 [id number] [place] Referral No Records Received 07/10/2024 Referral: [facility] WPtel: [address], [address] [id number] [place] Referral Records Received 09/21/2022 Referral: [facility] WPtel: [address] [facility] [address] [id number] [place] Referral Completed 05/28/2021 Referral: General Cardiology [...] Sister Jyotsna involved in his care cell# [phone] Guardian: Giulia (tapan met in person 09/01/21), [...] 05.26.2024 with Jessa Webster MD at [facility]. Start Pioglitazone 15 mg QD. Stop Basaglar insulin. Increase Ozempic 2 mg once wkly. Continue Humalin R U-500 100 units with meals TID. FOLLOW UP 2 MONTHS. If BG >400 add 50 units to next scheduled dose of Humalin R U 500 insulin 06/12/2024
[2024-11-10 21:47] LABS: PCR FLU A Negative PCR FLU A (Negative); PCR FLU B Negative PCR FLU B (Negative); PCR RSV Negative PCR RSV (Negative); SARS PCR* Negative SARS-CoV-2 (Negative)
--- OUTSIDE RECORDS SUMMARY | 2024-11-10 21:48 | XMS_ITS | CCD ---
Author Name Cecilio Durham Address [address] [facility] [address] [place] [address] Phone Organization [facility] Phone Care Team Providers Care Hoop Bender Tank Name Role Phone Harrison Durham Primary Care Provider Leona vailable Unavailable Chronic Care Management Unavaila ble Summary Purpose DataExchange Insurance Providers Payer name Policy type / Coverage type Covered democrat ID Effective Begin Date Effective End Date Medicare [place] Medicare Part B [id number] Unknown Unknown [place] Part B [id number] Unknown Unknown Family history Sister Brittany Suggs [...] on file 07/11/[address]: 040885510 Never smoker 01/16 Sexually Active? Unknown No [...] 10/07/2021 Living arrangements Unknown Senior Living 09/03/[address]: [id number] No Alcohol Consum ption 09/02/2020 Allergies, Adverse Reactions, Alerts Substance Reaction Codes Entered Date Inactivated Date Status * NO KNOWN FOOD ALLERGIES Unknown 07/13/2023 No Inactive Date Active LISINOPRIL RxNorm: 76522 02/12/2020 No Inactive Da te Active Metformin [...] 703.8 10/10/2024 Active Pulmonary nodule SNOMED CT: 841273528 ICD-10: R91.1 ICD-9: 793.11 10/10/2024 Active Recurrent [...] 564.01 09/05/[address]24 [address] st[address] SN[address]: 468474292 ICD-10: R19.5 ICD-9: 787.7 09/05/2024 Active Body mass index [BMI] 60.0-69.9, adult SNOMED CT: 989638359 ICD-10: Z68.44 ICD-9: V85.44 08/08/2024 Active Mixed incontinence SNOMED CT: 45747536 ICD-10: N39.46 ICD-9: 788.33 08/08/2024 Active Diabetic [...] 701.9 09/07/2023 Resolved Coronary artery disease involving big sandy coronary [...] Z23 ICD-9: V03.89 02/10/2022 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 ICD-10: Z79.4 02/10/2022 [...] penicillin V potassium 500 mg tablet RxNorm: 708095 Take 1 Tablet(s) Oral QID Take until dental appointment per ER recommendation 10/21/19 25 025 Inactive hydrocodone 5 mg-acetaminophen 325 mg tablet RxNorm: 497956 Take 1 Tablet(s) Oral Q4H every four hours as needed for pain PRN for severe acute dental pain 10/21/19 25 025 Inactive hydrocodone 5 mg-acetaminophen 325 mg tablet RxNorm: 728443 Take 1 Tablet(s) Oral Q4H every four hours as needed for pain PRN for severe acute dental pain 10/21/19 25 025 Inactive penicillin V potassium 500 mg tablet RxNorm: 808482 Take 1 Tablet(s) Oral QID Take until dental appointment per ER recommendation 10/21/19 25 025 Inactive potassium chloride ER 20 mEq tablet,extended release RxNorm: 845255 Take 2 Tablet(s) Oral TID (dx: hypokalemia) 09/14/19 25 026 Active potassium chloride ER 20 mEq tablet,extended release RxNorm: 295097 Take 2 Tablet(s) Oral TID (dx: hypokalemia) 09/14/19 25 025 Inactive loperamide 2 mg tablet RxNorm: 496928 Take 2 Tablet(s) Oral UD as directed [...] Date Active senna 8.6 mg tablet RxNorm: 722036 Take 1 Tablet(s) Oral QD as needed and 1 tab BID prn 09/06/19 No Stop Date Active cyclobenzaprine 10 mg tablet RxNorm: 792258 Take 1 Tablet(s) Oral QHS every night at bedtime as needed 09/06/19 25 No Stop Date Active loperamide 2 mg tablet RxNorm: 516491 Take 2 Tablet(s) Oral UD as directed as needed 2 tabs after first loose stool then 1 tab after each subsequent stool PRN Do not exceed 4 doses in 24 hours. Do not administer until after 3 loose stools. 09/06/19 25 026 Active pioglitazone 15 mg tablet RxNorm: 669345 Take 1 Tablet(s) Oral QD 09/06/19 No Stop Date Active loperamide 2 mg tablet RxNorm: 647888 Take 2 Tablet(s) Oral UD as directed as needed 2 tabs after first loose stool then 1 tab after each subsequent stool PRN Do not exceed 4 doses in 24 hours. Do not administer until after 3 loose stools. 09/06/19 025 Inactive pregabalin 100 mg capsule RxNorm: 055031 1 CAPSULE BY MOUTH EVERY MORNING (DX: NEUROPATHY) 08/23/19 Active FACILITY IS REQUESTING REFILL. PRIOR RX HAS BEEN EXHAUSTED. THANK YOU. pregabalin 150 mg capsule RxNorm: 041566 1 CAPSULE BY MOUTH AT BEDTIME (DX: NEUROPATHY) 08/21/19 Active FACILITY IS REQUESTING A REFILL OF THIS MEDICATION, THANK YOU! senna 8.6 mg tablet RxNorm: 039325 Take 1 Tablet(s) Oral QD as needed for constipation on day 2 of no bowel movement 08/09/19 Inactive Miralax 17 gram/dose oral powder RxNorm: 893666 Administer 17 Gram(s) Oral QD as needed for constipation on day 3 of no bowel movement 08/09/19 025 Inactive senna 8.6 mg tablet RxNorm: 689499 Take 1 Tablet(s) Oral QD as needed for constipation on day 2 of no bowel movement 08/09/19 025 Inactive Miralax 17 gram/dose oral powder RxNorm: 315006 Administer 17 Gram(s) Oral QD as needed for constipation on day 3 of no bowel movement 08/09/19 025 Inactive pregabalin 100 mg capsule RxNorm: 985893 Take 1 Capsule(s) Oral QAM every morning 08/08/19 025 Inactive Accu-Chek Guide test strips RxNorm: Use 1 Test Strip TID to test blood glucose, Dx: E11.42 08/02/19 No Stop Date Active ok to substitute with any covered alternative test strip Lancets,Thin 28 gauge RxNorm: Use 1 as directed TID lancet, Dx: E11.42 03/18/20 25 No Stop Date Active Humulin R U-500 (Concentrated) Insulin 500 unit/mL subcutaneous soln RxNorm: 306808 Inject 100 Unit(s) Subcutaneous AC before meals Three times daily before meals. 07/24/19 25 025 Inactive ammonium lactate 12 % topical cream RxNorm: 091077 Apply 1 Application Topical BID 07/20/19 25 No Stop Date Active ezetimibe 10 mg tablet RxNorm: 498290 Take 1 Tablet(s) Oral QD 07/18/19 25 No Stop Date Active senna 8.6 mg tablet RxNorm: 616277 Take 1 Tablet(s) Oral QD 07/18/19 25 025 Inactive metoprolol succinate ER 200 mg tablet,extended release 24 hr RxNorm: 039181 Take 1 Tablet(s) Oral QD 06/19/19 25 No Stop Date Active pantoprazole 40 mg tablet,delayed release RxNorm: 577490 Take 1 Tablet(s) Oral QAM every morning 06/19/19 25 No Stop Date Active hydralazine 50 mg tablet RxNorm: 323434 Take 1 Tablet(s) Oral QID 06/19/19 25 No Stop Date Active carbamazepine 200 mg tablet RxNorm: 351632 Take 1 Tablet(s) Oral BID 06/19/19 25 No Stop Date Active amlodipine 10 mg tablet RxNorm: 953302 Take 1 Tablet(s) Oral QD 06/19/19 25 No Stop Date Active Eliquis 5 mg tablet RxNorm: 5215950 Take 1 Tablet(s) Oral BID 06/19/19 25 No Stop Date Active pen needle, diabetic 30 gauge x 3/16 RxNorm: Use 1 6 times per day w/insulin 06/14/19 25 026 Active pen needle, diabetic 30 gauge x 3/16 RxNorm: Use 1 needle 6 times per day w/insulin 06/14/19 25 025 Inactive nystatin 100,000 unit/gram topical powder RxNorm: 645668 Apply 1 Application Topical BID as needed abdominal/breast/ groin folds 05/24/19 25 026 Active pregabalin 100 mg capsule RxNorm: 732273 Take 1 Capsule(s) Oral QAM every morning 01/06 Inactive nystatin 100,000 unit/gram topical powder RxNorm: 861973 Apply 1 Application Topical BID as needed abdominal/breast/ groin folds 04/11/20 Inactive chlorthalidone 25 mg tablet RxNorm: 116575 Take 1 Tablet(s) Oral QAM every morning 04/06/20 No Stop Date Active pregabalin 150 mg capsule RxNorm: 358517 Take 1 Capsule(s) Oral QHS every night at bedtime 03/31/20 024 Inactive Vascepa 1 gram capsule RxNorm: 4642474 Take 2 Capsule(s) Oral BID 03/30/20 Active rosuvastatin 40 mg tablet RxNorm: 968305 1 TAB ORALLY EVERY EVENING (DX:CORONARY ARTERY DISEASE) 03/28/20 No Stop Date Active venlafaxine ER 75 mg capsule,extended release 24 hr RxNorm: 879941 3 CAPS (225MG) ORALLY DAILY (DX: MOOD DISORDER) 03/28/20 No Stop Date Active pregabalin 100 mg capsule RxNorm: 148012 Take 1 Capsule(s) Oral QAM every morning 03/20/20 Inactive cholecalciferol (vitamin D3) 1,250 mcg (50,000 unit) capsule RxNorm: 023588 Take 1 Capsule(s) Oral QW once a [...] with any covered alternative test strip Basaglar ZaPen U-100 Insulin 100 unit/mL (3 mL) subcutaneous RxNorm: 5830649 Inject 40 Unit(s) Subcutaneous BID 03/07/20 025 Inactive Please dispense one month supply. Humulin R U-500 (Concentrated) Insulin 500 unit/mL subcutaneous soln RxNorm: 254411 Inject 100 Unit(s) Subcutaneous AC before meals [...] PRN) to be use with new Accu [place] meter 03/04/20 Inactive ok to substitute with any covered alternative test strip FreeStyle Chema 2 Sensor kit RxNorm: Use UD as directed 03/02/20 Inactive Pen Needle 30 gauge x 516 RxNorm: Pen(s) Use 1 needle as directed TID 03/02/20 Inactive nystatin 100,000 unit/gram topical powder RxNorm: 847489 Apply 1 Application Topical BID as needed [...] (Concentrated) Insulin 500 unit/mL subcutaneous soln RxNorm: 625142 Inject 100 Unit(s) Subcutaneous TID 02/17/20 24 024 Inactive Humulin R U-500 (Concentrated) Insulin 500 unit/mL subcutaneous soln RxNorm: 564952 Inject 100 Unit(s) Subcutaneous TID 02/10/20 24 024 Inactive Basaglar KwikPen U-100 Insulin 100 unit/mL (3 mL) subcutaneous RxNorm: 9176648 Inject 30 Unit(s) Subcutaneous BID 02/10/20 024 Inactive Please dispense one month supply. pregabalin 100 mg capsule RxNorm: 696907 Take 1 Capsule(s) Oral QAM every morning 02/07/20 24 024 Inactive isosorbide mononitrate ER 60 mg tablet,extended release 24 hr RxNorm: 086502 Take 1 Tablet(s) Oral QD 02/01/20 24 025 Active aripiprazole 15 mg tablet RxNorm: 025314 Take 1/2 Tablet(s) Oral QD 02/01/20 24 025 Active torsemide 20 mg tablet RxNorm: 145840 1 TAB ORALLY DAILY (DX: EDEMA) 01/27/20 No Stop Date Active potassium chloride ER 20 mEq tablet,extended release(part/cryst) RxNorm: 4239410 2 TABS (40MEQ) ORALLY TWICE DAILY (DX: HYPOKALEMIA) 01/27/20 24 025 Inactive cephalexin 500 mg capsule RxNorm: 572995 Take 1 Capsule(s) Oral QID 12/17/19 24 024 Inactive cephalexin 500 mg capsule RxNorm: 019783 Take 1 Capsule(s) Oral QID 12/17/19 24 024 Inactive acetaminophen 500 mg tablet RxNorm: 055566 (MAX APAP:4GM/24HR) Take 1 Tablet(s) Oral TID [...] %-0.3 % drops in a dropperette RxNorm: 035206 Apply 1-2 Drop(s) Both eyes BID as needed 09/28/19 Inactive erythromycin 5 mg/gram (0.5 %) eye ointment RxNorm: 309087 Apply 1 Application Both eyes QHS every night at bedtime Instill ~1 cm ribbon into affected eye 09/28/19 24 Inactive Artificial Tears (PF) 0.1 %-0.3 % drops in a dropperette RxNorm: 206292 Apply 1-2 Drop(s) Both eyes BID as needed 09/28/19 24 024 Inactive erythromycin 5 mg/gram (0.5 %) eye ointment RxNorm: 710998 Apply 1 Application Both eyes QHS every night at bedtime Instill ~1 cm ribbon into affected eye 09/28/19 24 Inactive acetaminophen 500 mg tablet RxNorm: 388515 (MAX APAP:4GM/24HR) Take 1 Tablet(s) Oral TID as needed for pain 09/24/19 24 024 Inactive carvedilol 25 mg tablet RxNorm: 079227 Take 1 Tablet(s) Oral QD 09/08/19 24 No Stop Date Active pregabalin 100 mg capsule RxNorm: 932489 Take 1 Capsule(s) Oral QAM every morning 09/07/19 24 024 Inactive bisacodyl 10 mg rectal suppository RxNorm: 740075 Insert 1 Suppository Rectal QD as needed 07/13/19 24 No Stop Date Active ketoconazole 2 % shampoo RxNorm: 731058 Apply 1 Application Topical UD as directed 07/13/19 No Stop Date Active Ozempic 1 mg/dose (4 mg/3 mL) subcutaneous pen injector RxNorm: 3819584 Inject 1 Milligram(s) Subcutaneous QW once a week 07/13/19 No Stop Date Active Guaifenesin AC 10 mg-100 mg/5 mL oral liquid RxNorm: 551822 Take 10 Milliliter(s) Oral Q4H every four hours as needed 07/13/19 No Stop Date Active hydrocortisone 2.5 % topical cream RxNorm: 742554 Apply 1 Application Topical BID as needed 07/13/19 No Stop Date Active rosuvastatin 40 mg tablet RxNorm: 183428 Take 1 Tablet(s) Oral QPM every evening 07/13/19 024 Inactive ezetimibe 10 mg tablet RxNorm: 159350 Take 1 Tablet(s) Oral QD 07/13/19 24 025 Inactive polyethylene glycol 3350 17 gram/dose oral powder RxNorm: 913946 Take 17 Gram(s) Oral BID as needed mix in 4-8ox water 07/13/19 24 025 Inactive aripiprazole 15 mg tablet RxNorm: 702814 Take 1/2 Tablet(s) Oral QD 07/13/19 24 024 Inactive isosorbide mononitrate ER 60 mg tablet,extended release 24 hr RxNorm: 474280 Take 1 Tablet(s) Oral QD 07/13/19 24 024 Inactive ammonium lactate 12 % topical cream RxNorm: 077485 Apply 1 Application Topical BID 07/13/19 24 025 Inactive rosuvastatin 20 mg sprinkle capsule RxNorm: 2263177 Take 1 Capsule(s) Oral QD 07/13/19 24 025 Inactive Vascepa 1 gram capsule RxNorm: 0786219 Take 2 Capsule(s) Oral BID 07/13/19 24 024 Inactive venlafaxine ER 75 mg capsule,extended release 24 hr RxNorm: 177320 Take 3 Capsule(s) Oral QD 07/13/19 24 024 Inactive Basaglar KwikPen U-100 Insulin 100 unit/mL (3 mL) subcutaneous RxNorm: 2693057 Inject 30U SubQ twice daily 07/07/19 24 024 Inactive Please dispense one month supply. Radha EugeneikPen U-100 Insulin 100 unit/mL (3 mL) subcutaneous RxNorm: 7625425 Inject 30U SubQ twice daily 07/07/19 24 024 Inactive Please dispense one month supply. pregabalin 150 mg capsule RxNorm: 426384 Take 1 Capsule(s) Oral QHS every night at bedtime 07/05/19 24 024 Inactive pregabalin 150 mg capsule RxNorm: 337247 Take 1 Capsule(s) Oral QHS every night at bedtime 07/05/19 24 024 Inactive polyethylene glycol 3350 17 gram/dose oral powder RxNorm: 098318 Take 1 Packet Oral QD as needed (1 packet = 17g) mix with 4-8oz of liquid 06/15/19 24 024 Inactive bisacodyl 10 mg rectal suppository RxNorm: 752737 Insert one suppository per rectum once daily as needed for constipation 06/15/19 24 024 Inactive bisacodyl 10 mg rectal suppository RxNorm: 050665 Insert one suppository per rectum once daily as needed for constipation 06/15/19 24 024 Inactive pregabalin 100 mg capsule RxNorm: 214647 Take 1 Capsule(s) Oral QAM every morning 04/27/20 23 024 Inactive Levemir FlexPen 100 unit/mL (3 mL) solution subcutaneous insulin pen RxNorm: 741870 Inject 30 Unit(s) Subcutaneous BID 04/27/20 23 024 Inactive rosuvastatin 40 mg tablet RxNorm: 367658 Take 1 Tablet(s) Oral QPM every evening 04/16/20 23 024 Inactive D/C rosuvastatin 20mg venlafaxine ER 75 mg capsule,extended release 24 hr RxNorm: 595135 Take 3 Capsule(s) Oral QD 04/14/20 23 023 Inactive pregabalin 100 mg capsule RxNorm: 738407 Take 1 Capsule(s) Oral QAM every morning [...] strip clotrimazole 1 % topical cream RxNorm: 777725 Take apply topically to abdominal folds twice daily for 14 days 03/12/20 024 Inactive Ozempic 1 mg/dose (4 mg/3 mL) subcutaneous pen injector RxNorm: 5692225 Inject 1 Milligram(s) Subcutaneous QW once a week 03/11/20 023 Inactive rosuvastatin 20 mg tablet RxNorm: 697291 Take 1 Tablet(s) Oral QD 02/26/20 023 Inactive d/c pravastatin 80mg Ozempic 1 mg/dose (4 mg/3 mL) subcutaneous pen injector RxNorm: 8424155 Inject 1 Milligram(s) Subcutaneous QW once a week 02/20/20 023 Inactive pregabalin 150 mg capsule RxNorm: 567860 Take 1 Capsule(s) Oral HS at bed time 02/19/20 23 023 Inactive pregabalin 100 mg capsule RxNorm: 932803 Take 1 Capsule(s) Oral QAM every morning 02/18/20 23 023 Inactive venlafaxine ER 75 mg capsule,extended release 24 hr RxNorm: 835931 Take 3 Capsule(s) Oral QD 02/04/20 23 023 Inactive FreeStyle Chema 2 Sensor kit RxNorm: use as directed 02/04/20 23 023 Inactive FreeStyle Chema 2 Sensor kit RxNorm: use as directed 02/04/20 23 024 Inactive fluconazole 150 mg tablet RxNorm: 201920 Take 1 Tablet(s) Oral on day 3 and on day 6 02/03/20 024 Inactive venlafaxine ER 150 mg capsule,extended release 24 hr RxNorm: 501496 Take 1 Capsule(s) Oral QD 02/03/20 023 Inactive chlorthalidone 25 mg tablet RxNorm: 985647 Take 1 Tablet(s) Oral QAM every morning 02/03/20 024 Inactive acetaminophen 500 mg tablet RxNorm: 507752 1 TABLET ORALLY 3 TIMES DAILY (MAX APAP:4GM/24HR) 12/15/19 023 Inactive potassium chloride ER 20 mEq tablet,extended release RxNorm: 610054 Take 1 Tablet(s) Oral BID 12/09/19 024 Inactive d/c 20mEq once daily (sent from hospital) clotrimazole 1 % topical cream RxNorm: 114988 apply 1g topically to top of feet and in between toes BID 12/09/19 23 025 Inactive nystatin 100,000 unit/gram topical powder RxNorm: 160304 APPLY TO AFFECTED AREAS TOPICALLY 2 TIMES DAILY 11/21/19 023 Inactive Nystop 100,000 unit/gram topical powder RxNorm: 454479 Apply to abd folds, under breasts and L side of groin Topical BID x 14 days, then BID PRN 11/20/19 023 Inactive dx: yeast dermatitis [place] Ultra Strength 4 %-30 %-10 % topical cream RxNorm: 118632 Apply 1 Gram(s) Topical QID PRN to feet and legs for neuropathic pain 11/11/19 024 Inactive clotrimazole 1 % topical cream RxNorm: 094982 Apply 1/2 Gram(s) Topical BID Apply to affected areas of groin, periarea, and abdominal topically 2 times daily 11/10/19 23 023 Inactive hydrocortisone 2.5 % topical cream RxNorm: 019832 Apply 1/2 Gram(s) Topical BID as needed 11/10/19 024 Inactive Levemir FlexPen 100 unit/mL (3 mL) solution subcutaneous insulin pen RxNorm: 566604 Inject 30 Unit(s) Subcutaneous BID 10/07/1913/2 023 Inactive Humulin R U-500 (Concentrated) Insulin 500 unit/mL subcutaneous soln RxNorm: 597783 Inject 100 Unit(s) Subcutaneous TID 10/07/19 024 Inactive Ozempic 0.25 mg or 0.5 mg (2 mg/3 mL) subcutaneous pen injector RxNorm: 9644561 Inject 1/2 Milligram(s) Subcutaneous QW once a week 10/07/19 024 Inactive aripiprazole 15 mg tablet RxNorm: 964529 1/2 TAB (7.5MG) ORALLY DAILY (DX:MAJOR DEPRESSIVE DISORDER) 09/23/19 023 Inactive Accu-Chek Guide test strips RxNorm: Use 1 Test Strip QID 09/15/19 23 023 Inactive ok to substitute with any covered alternative test strip Lancets,Thin 28 gauge RxNorm: Use 1 as directed QID 09/15/19 023 Inactive torsemide 20 mg tablet RxNorm: 934923 Take 1 Tablet(s) Oral BID 09/09/19 024 Inactive d/c once daily dosing carvedilol 25 mg tablet RxNorm: 347192 Take 1 Tablet(s) Oral QD 08/25/19 024 Inactive pregabalin 150 mg capsule RxNorm: 304600 1 Capsule(s) Oral HS at bed time 08/18/19 023 Inactive pregabalin 100 mg capsule RxNorm: 179104 1 Capsule(s) Oral QAM every morning 08/18/19 023 Inactive carvedilol 25 mg tablet RxNorm: 769040 1 Tablet(s) Oral QD 07/28/19 23 023 Inactive lisinopril 20 mg tablet RxNorm: 521795 Give 1 Tablet(s) Oral QD 07/28/19 23 023 Inactive Lyrica 150 mg capsule RxNorm: 635012 Take 1 Capsule(s) Oral QHS every night at bedtime 07/19/19 023 Inactive d/c 100mg dose Diflucan 150 mg tablet RxNorm: 859363 Take 1 Tablet(s) Oral QD repeat on day 3 and 6 07/19/19 23 023 Inactive pregabalin 100 mg capsule RxNorm: 072918 Take 1 Capsule(s) Oral QAM every morning 07/19/19 23 023 Inactive gatifloxacin 0.5 % eye drops RxNorm: 307379 Instill 1 Drop(s) as directed TID Instill 1 drop in to affected eye(s) starting 1 day prior to surgery and continue until gone (do not exceed 4 weeks). 07/13/19 23 023 Inactive carvedilol 25 mg tablet RxNorm: 519315 2 Tablet(s) Oral BID 07/13/19 23 023 Inactive Humulin R Regular U-100 Insulin 100 unit/mL injection solution RxNorm: 056447 85 Unit(s) Injection TID 07/13/19 23 023 Inactive ketorolac 0.5 % eye drops RxNorm: 544404 Instill 1 Drop(s) as directed QID Instill 1 drop into affected eye(s) 4 times daily starting 1 day prior to surgery and continue until gone (do not exceed 4 weeks). 07/13/19 23 023 Inactive Diflucan 150 mg tablet RxNorm: 089885 Take 1 Tablet(s) Oral QD repeat on day 3 and 6 06/30/19 23 023 Inactive Accu-Chek Guide test strips RxNorm: Use 1 Test Strip QID Use 1 test strip to monitor blood glucose 4 times daily and as needed. Dx:E11.42. 06/23/19 23 023 Inactive ok to substitute with any covered alternative test strip dextromethorphan-gu aifenesin 10 mg-100 mg/5 mL oral liquid RxNorm: 161400 Take 10 Milliliter(s) Oral every 4 hours as needed for cough 06/19/19 23 023 Inactive dextromethorphan-gu aifenesin 10 mg-100 mg/5 mL oral liquid RxNorm: 564365 Take 10 Milliliter(s) Oral every 4 hours as needed for cough 06/19/19 23 023 Inactive Lyrica 150 mg capsule RxNorm: 991990 Take 1 Capsule(s) Oral QHS every night at bedtime 06/18/19 023 Inactive d/c 100mg dose aripiprazole 15 mg tablet RxNorm: 837264 /2 TAB (7.5MG) ORALLY DAILY (DX:MAJOR DEPRESSIVE DISORDER) 06/05/19 23 023 Inactive pregabalin 100 mg capsule RxNorm: 487750 1 Capsule(s) Oral QAM every morning 06/02/19 023 Inactive Banophen 50 mg capsule RxNorm: 4688389 Take 1 Capsule(s) Oral Q6H every 6 hours as needed 05/19/19 23 No Stop Date Active Novolog Flexpen U-100 Insulin aspart 100 unit/mL (3 mL) subcutaneous RxNorm: 7591967 Inject 10 Unit(s) Subcutaneous QHS every night at bedtime with nighttime snack 04/08/20 022 Inactive Novolog Flexpen U-100 Insulin aspart 100 unit/mL (3 mL) subcutaneous RxNorm: 5105770 Inject 42 Unit(s) Subcutaneous TID in addition to sliding scale 04/08/20 022 Inactive d/c 36u albuterol sulfate HFA 90 mcg/actuation aerosol inhaler RxNorm: 9095730 Take 2 Puff(s) Inhalation Q4H every four hours as needed as needed for SOB, cough, or wheezing 04/07/20 22 030 Active Banophen 50 mg capsule RxNorm: 0947182 Take 1 Capsule(s) Oral Q6H every 6 hours as needed 04/06/20 023 Inactive diphenhydramine 50 mg tablet RxNorm: 5421758 Take 1 Tablet(s) Oral Q6H every 6 hours as needed 04/06/20 22 022 Inactive diphenhydramine 50 mg tablet RxNorm: 0514885 1 Tablet(s) Oral Q6H every 6 hours as needed 04/06/20 22 022 Inactive Abilify 15 mg tablet RxNorm: 122288 /2 Tablet(s) Oral QD 03/10/20 22 023 Inactive Shingrix (PF) 50 mcg/0.5 mL intramuscular suspension, kit RxNorm: 5276654 Administer 1/2 Milliliter(s) Intramuscular QD one time shingrix step 2 ( step 1 given 11/04/21) WITH needle - Nursing please administer upon arrival and once administered post a bridge message with date of administration, direct marketing coordinator, expiration date, and lot# so we can update [facility] 02/18/20 22 022 Inactive dispense with needle Shingrix (PF) 50 mcg/0.5 mL intramuscular suspension, kit RxNorm: 4031748 Administer 1/2 Milliliter(s) Intramuscular QD one time shingrix step 2 ( step 1 given 11/04/21) WITH needle - Nursing please administer upon arrival and once administered post a bridge message with date of administration, direct marketing coordinator, expiration date, and lot# so we can update [facility] 02/18/20 22 022 Inactive dispense with needle Lyrica 100 mg capsule RxNorm: 943867 Take 1 Capsule(s) Oral QAM every morning 01/08/20 22 022 Inactive d/c 50mg dose acetaminophen 500 mg tablet RxNorm: 794927 Take 1 Tablet(s) Oral TID 01/08/20 22 022 Inactive d/c PRN order Lyrica 150 mg capsule RxNorm: 855188 Take 1 Capsule(s) Oral QHS every night at bedtime 01/08/20 22 023 Inactive d/c 100mg dose polyethylene glycol 3350 17 gram/dose oral powder RxNorm: 629564 Take 17=1 capful Gram(s) Oral QD mix with 4-8oz of liquid 01/08/20 22 025 Inactive take this in addition to BID prn order Abilify 5 mg tablet RxNorm: 346958 Take 1 Tablet(s) Oral QD take 1 tab po QD #30 refill 5 dx: MDD 12/12/19 22 022 Inactive Abilify 5 mg tablet RxNorm: 136876 Take 1 Tablet(s) Oral QD take 1 tab po QD #30 refill 5 dx: MDD 12/12/19 22 022 Inactive Novolog Flexpen U-100 Insulin aspart 100 unit/mL (3 mL) subcutaneous RxNorm: 2324351 Inject 42 Unit(s) Subcutaneous TID in addition to sliding scale 12/10/19 22 022 Inactive d/c 36u chlorthalidone 25 mg tablet RxNorm: 150178 Take 1 Tablet(s) Oral QAM every morning 12/10/19 22 023 Inactive pregabalin 50 mg capsule RxNorm: 865396 Take 1 Capsule(s) Oral QAM every morning 11/12/19 22 Inactive tetanus-diphtheria toxoids-Td 2 Lf unit-2 Lf unit/0.5 mL IM suspension RxNorm: 139 Take 0.5 Miscellaneous Intramuscular 11/12/19 22 022 Inactive need tdap - nursing to administer upon arrival pregabalin 50 mg capsule RxNorm: 288190 Take 1 Capsule(s) Oral QAM every morning 10/16/19 Inactive pregabalin 50 mg capsule RxNorm: 248885 Take 1 Capsule(s) Oral QAM every morning 10/16/19 22 022 Inactive pregabalin 50 mg capsule RxNorm: 897772 1 Capsule(s) Oral QAM every morning 10/15/19 22 022 Inactive Shingrix (PF) 50 mcg/0.5 mL intramuscular suspension, kit RxNorm: 6035499 Administer 1/2 Milliliter(s) Intramuscular one time Nursing please administer upon arrival and once administered post a bridge message with date of administration, direct marketing coordinator, expiration date, and lot# so we can update [facility]. 10/09/19 22 022 Inactive shingrix step 1 Shingrix (PF) 50 mcg/0.5 mL intramuscular suspension, kit RxNorm: 8930226 Administer 1/2 Milliliter(s) Intramuscular one time Nursing please administer upon arrival and once administered post a bridge message with date of administration, direct marketing coordinator, expiration date, and lot# so we [...] aspart 100 unit/mL (3 mL) subcutaneous RxNorm: 8287402 Inject 10 Unit(s) Subcutaneous QHS every night at bedtime with nighttime snack 10/08/19 22 022 Inactive Shingrix (PF) 50 mcg/0.5 mL intramuscular suspension, kit RxNorm: 6711420 ADMINISTER 2-DOSE SERIES PER CDC GUIDELINES 10/08/19 22 Active Shingrix (PF) 50 mcg/0.5 mL intramuscular suspension, kit RxNorm: 5857304 ADMINISTER 2-DOSE SERIES PER CDC GUIDELINES 10/08/19 22 Inactive Novolog Flexpen U-100 Insulin aspart 100 unit/mL (3 mL) subcutaneous RxNorm: 0009848 Inject 36 Unit(s) Subcutaneous TID in addition to sliding scale 10/08/19 22 Inactive cholecalciferol (vitamin D3) 1,250 mcg (50,000 unit) capsule RxNorm: 766501 Take 1 Capsule(s) Oral QW once a week 10/08/19 024 Inactive Novofine Autocover 30 gauge x 1/3 needle RxNorm: Use 1 Miscellaneous UD as directed Use 1 needle as directed to administer insulin 5 times a day Dx:E11.42. 10/03/19 022 Inactive ok to substitute with any covered alternative pen needle benzoyl peroxide 10 % topical cleanser RxNorm: 837567 Apply 1 Application Topical QD apply to face, wash rinse and dry once daily (may change to QOD if drying) 08/19/19 22 022 Inactive (%covered by insurance) #60ml refill 11 dx: acne benzoyl peroxide 10 % topical cleanser RxNorm: 307621 Apply 1 Application Topical QD apply to face, wash rinse and dry once daily (may change to QOD if drying) 08/19/19 22 022 Inactive (%covered by insurance) #60ml refill 11 dx: acne benzoyl peroxide 10 % topical cleanser RxNorm: 642807 Apply 1 Application Topical QD apply to face, wash rinse and dry once daily (may change to QOD if drying) 08/19/19 22 022 Inactive (%covered by insurance) #60ml refill 11 dx: acne Lyrica 50 mg capsule RxNorm: 499123 Take 1 Capsule(s) Oral QAM every morning Take 1 capsule by mouth once daily 08/19/19 22 022 Inactive benzoyl peroxide 10 % topical cleanser RxNorm: 745273 Apply 1 Application Topical QD apply to face, wash rinse and dry once daily (may change to QOD if drying) 08/19/19 Inactive (%covered by insurance) #60ml refill 11 dx: acne Lyrica 100 mg capsule RxNorm: 470234 Take 1 Capsule(s) Oral QHS every night at bedtime Take 1 capsule by mouth once daily at bedtime 08/19/19 Inactive Lyrica 100 mg capsule RxNorm: 140658 Take 1 Capsule(s) Oral QHS every night at bedtime Take 1 capsule by mouth once daily at bedtime 08/16/19 Inactive Lyrica 50 mg capsule RxNorm: 318054 Take 1 Capsule(s) Oral QAM every morning Take 1 capsule by mouth once daily 08/16/19 Inactive Levemir FlexTouch U-100 Insulin 100 unit/mL (3 mL) subcutaneous pen RxNorm: 681520 Inject 86 Unit(s) Subcutaneous BID 08/05/19 Inactive d/c 83units BID Lyrica 100 mg capsule RxNorm: 948208 Take 1 Capsule(s) Oral QHS every night at bedtime Take 1 capsule by mouth once daily at bedtime 07/14/19 22 022 Inactive Lyrica 50 mg capsule RxNorm: 112191 Take 1 Capsule(s) Oral QAM every morning Take 1 capsule by mouth once daily 07/14/19 22 022 Inactive Levemir FlexTouch U-100 Insulin 100 unit/mL (3 mL) subcutaneous pen RxNorm: 825559 Inject 83 Unit(s) Subcutaneous BID 07/08/19 22 [...] test strip hydralazine 50 mg tablet RxNorm: 526099 Take 1 Tablet(s) Oral QID 05/05/20 21 022 Inactive venlafaxine ER 225 mg tablet,extended release 24 hr RxNorm: 508449 Take 1 Tablet(s) Oral QD 05/05/20 21 021 Inactive venlafaxine ER 225 mg tablet,extended release 24 hr RxNorm: 794735 Take 1 Tablet(s) Oral QD 05/05/20 022 Inactive isosorbide mononitrate ER 30 mg tablet,extended release 24 hr RxNorm: 250194 Take 1 Tablet(s) Oral QD 05/05/20 21 024 Inactive hydralazine 50 mg tablet RxNorm: 129294 Take 1 Tablet(s) Oral QID 05/05/20 21 021 Inactive aspirin 81 mg tablet,delayed release RxNorm: 106770 Take 1 Tablet(s) Oral QD 03/31/20 022 Inactive Vitamin D2 1,250 mcg (50,000 unit) capsule RxNorm: 7345600 Take 1 Capsule(s) Oral QW once a week x 12 weeks 03/31/20 022 Inactive Vitamin D2 1,250 mcg (50,000 unit) capsule RxNorm: 6372143 Take 1 Capsule(s) Oral QW once a week 03/31/20 021 Inactive Zetia 10 mg tablet RxNorm: 224551 Take 1 Tablet(s) Oral QD 03/31/20 024 Inactive Zetia 10 mg tablet RxNorm: 242911 Take 1 Tablet(s) Oral QD 03/31/20 021 Inactive hydralazine 25 mg tablet RxNorm: 771500 Take 1 Tablet(s) Oral QID 03/31/20 21 021 Inactive hydralazine 25 mg tablet RxNorm: 164150 Take 1 Tablet(s) Oral QID 03/31/20 021 Inactive hydralazine 10 mg tablet RxNorm: 225559 Take 1 Tablet(s) Oral QID 03/03/20 21 021 Inactive cephalexin 500 mg tablet RxNorm: 942578 Take 1 Tablet(s) Oral QID 02/27/20 021 Inactive cephalexin 500 mg tablet RxNorm: 783289 Take 1 Tablet(s) Oral QID 02/27/20 21 021 Inactive lisinopril 40 mg tablet RxNorm: 551923 Take 1 Tablet(s) Oral QD 09/ 023 Inactive Eliquis 5 mg tablet RxNorm: 9464510 Take 1 Tablet(s) Oral BID 01/05/20 21 025 Inactive Eliquis 5 mg tablet RxNorm: 3461416 Take 2 Tablet(s) Oral QD 01/01/20 21 021 Inactive Lyrica 50 mg capsule RxNorm: 174064 Take 1 Capsule(s) Oral QAM every morning 12/24/19 21 021 Inactive Lyrica 100 mg capsule RxNorm: 682904 Take 1 Capsule(s) Oral QHS every night at bedtime 12/24/19 021 Inactive clotrimazole 1 % topical cream RxNorm: 217813 Apply to right foot and toes Topical BID 12/04/19 21 023 Inactive metoprolol succinate ER 200 mg tablet,extended release 24 hr RxNorm: 121791 Take 1 Tablet(s) Oral QD 12/04/19 023 Inactive ciprofloxacin 500 mg tablet RxNorm: 128781 Take 1 Tablet(s) Oral QD 11/30/19 021 Inactive DX ofloxacin otic drops Accu-Chek Guide test strips RxNorm: USE 1 TO CHECK GLUCOSE 4 TIMES DAILY AND NEEDED 11/15/19 21 023 Inactive Blood Glucose Test strips RxNorm: Use 1 Test Strip QID at PRN 11/05/19 21 023 Inactive E11.42 lisinopril 30 mg tablet RxNorm: 532626 Take 1 Tablet(s) Oral QD 10/30/19 021 Inactive lisinopril 20 mg tablet RxNorm: 534910 Take 1 Tablet(s) Oral QD 10/23/19 21 021 Inactive lisinopril 20 mg tablet RxNorm: 941523 Take 1 Tablet(s) Oral QD 10/23/19 21 021 Inactive lisinopril 10 mg tablet RxNorm: 157576 Take 1 Tablet(s) Oral QD 10/02/19 21 021 Inactive icosapent ethyl 1 gram capsule RxNorm: 5819532 Take 2 Capsule(s) (2 gm) Oral BID with meals 04/28/20 21 024 Inactive Okay to dispense one 2gm tab if you have that available. icosapent ethyl 1 gram capsule RxNorm: 8572647 Take 2 Capsule(s) Oral BID 09/12/19 21 021 Inactive Okay to dispense one 2gm tab if you have that available. amlodipine 10 mg tablet RxNorm: 643939 Take 1 Tablet(s) Oral QD 09/04/19 21 021 Inactive aspirin 81 mg tablet,delayed release RxNorm: 562537 Take 1 Tablet(s) Oral QD 09/04/19 21 021 Inactive Levemir FlexTouch U-100 Insulin 100 unit/mL (3 mL) subcutaneous pen RxNorm: 790313 Inject 150 Unit(s) Subcutaneous BID 09/04/19 21 022 Inactive venlafaxine ER 150 mg tablet,extended release 24 hr RxNorm: 604784 Take 1 Tablet(s) Oral QD 09/04/19 21 021 Inactive clotrimazole-betame thasone 1 %-0.05 % topical cream RxNorm: 684732 Apply to rash on red area on left abdomen/chest Topical BID 08/10/19 21 021 Inactive amlodipine 5 mg tablet RxNorm: 992173 Take 1 Tablet(s) Oral QD 07/31/19 21 021 Inactive cephalexin 500 mg tablet RxNorm: 417090 Take 1 Tablet(s) Oral BID BID - Twice Daily 07/31/19 21 021 Inactive Start 08/01/20 pantoprazole 40 mg tablet,delayed release RxNorm: 092549 Take 1 Tablet(s) Oral QAM every morning 07/08/19 21 025 Inactive clopidogrel 75 mg tablet RxNorm: 938753 Take 1 Tablet(s) Oral QD 07/08/19 21 021 Inactive Blood Glucose Test strips RxNorm: Use 1 Test Strip QID at PRN 07/08/19 21 021 Inactive E11.42 senna 8.6 mg tablet RxNorm: 013002 Take 1 Tablet(s) Oral QD 02/22/ 025 Inactive Novolog Flexpen U-100 Insulin aspart 100 unit/mL (3 mL) subcutaneous RxNorm: 0600174 Administer per sliding scale Milliliter(s) Subcutaneous TID 151-200: 10 u; 201-250: 20 u; 251-300: 30 u; 301-350: 40 u; 351-400: 50 u. 07/08/19 022 Inactive lisinopril 5 mg tablet RxNorm: 996293 Take 1 Tablet(s) Oral QD 07/08/19 021 Inactive Novolog Flexpen U-100 Insulin aspart 100 unit/mL (3 mL) subcutaneous RxNorm: 6331895 Inject 85 Unit(s) Subcutaneous TID 07/08/19 022 Inactive pravastatin 80 mg tablet RxNorm: 158680 Take 1 Tablet(s) Oral QHS every night at bedtime 07/08/19 023 Inactive clotrimazole 1 % topical cream RxNorm: 807519 Apply to bilateral groin areas Topical BID 07/08/19 022 Inactive metoprolol succinate ER 200 mg tablet,extended release 24 hr RxNorm: 948242 Take 1 Tablet(s) Oral QD 07/08/19 021 Inactive Vitamin D3 25 mcg (1,000 unit) tablet RxNorm: 350548 Take 1 Tablet(s) Oral QD 07/08/19 021 Inactive isosorbide dinitrate 30 mg tablet RxNorm: 981277 Take 1 Tablet(s) Oral QD 07/08/19 021 Inactive carbamazepine 200 mg tablet RxNorm: 251590 Take 1 Tablet(s) Oral BID 07/08/19 025 Inactive Levemir FlexTouch U-100 Insulin 100 unit/mL (3 mL) subcutaneous pen RxNorm: 051701 Inject 140 Unit(s) Subcutaneous BID 07/08/19 021 Inactive torsemide 20 mg tablet RxNorm: 168035 Take 1 Tablet(s) Oral QD 07/08/19 21 023 Inactive venlafaxine 75 mg tablet RxNorm: 284877 Take 1 Tablet(s) Oral QD 07/08/19 21 021 Inactive acetaminophen 500 mg tablet RxNorm: 098341 Take 1 Tablet(s) Oral TID as needed for headache 06/18/19 21 021 Inactive acetaminophen 500 mg tablet RxNorm: 256971 Take 1 Tablet(s) Oral TID as needed for headache 06/18/19 21 021 Inactive Lyrica 100 mg capsule RxNorm: 028017 Take 1 Capsule(s) Oral QHS every night at bedtime 06/11/19 21 021 Inactive Lyrica 50 mg capsule RxNorm: 762308 Take 1 Capsule(s) Oral QAM every morning 06/10/19 21 021 Inactive hydrocortisone 2.5 % topical cream RxNorm: 901275 Apply to bilateral groin creases Topical BID 05/15/20 20 021 Inactive clotrimazole 1 % topical cream RxNorm: 181902 Apply to bilateral groin areas Topical BID 05/15/20 20 021 Inactive Lyrica 50 mg capsule RxNorm: 707642 Take 1 Capsule(s) Oral QAM every morning 05/14/20 20 020 Inactive Lyrica 100 mg capsule RxNorm: 123356 Take 1 Capsule(s) Oral QHS every night [...] Inactive Nystop 100,000 unit/gram topical powder RxNorm: 743597 Apply to abd folds, under breasts and L side of groin Topical BID x 14 days, then BID PRN 04/08/20 20 Inactive dx: yeast dermatitis Lyrica 100 mg capsule RxNorm: 671589 Take 1 Capsule(s) Oral QHS every night at bedtime 03/13/20 20 Inactive Lyrica 50 mg capsule RxNorm: 080651 Take 1 Capsule(s) Oral QAM every morning 03/13/20 20 Inactive ketoconazole 2 % shampoo RxNorm: 473265 Apply Topical two times a week with showers 03/11/20 20 Inactive cholecalciferol (vitamin D3) 50 mcg (2,000 unit) tablet RxNorm: 902039 Take 1 Tablet(s) Oral QD 03/11/20 20 021 Inactive Zetia 10 mg tablet RxNorm: 808694 Take 1 Tablet(s) Oral QD 03/07/20 20 021 Inactive Zetia 10 mg tablet RxNorm: 660986 Take 1 Tablet(s) Oral QD 03/07/20 20 Inactive Lyrica 50 mg capsule RxNorm: 808914 Take 1 Capsule(s) Oral QAM every morning 02/15/20 20 Inactive Lyrica 100 mg capsule RxNorm: 629998 Take 1 Capsule(s) Oral QHS every night at bedtime 02/15/20 20 Inactive Lyrica 100 mg capsule RxNorm: 902253 Take 1 Capsule(s) Oral QHS every night at bedtime 02/15/20 20 Inactive Lyrica 50 mg capsule RxNorm: 363114 Take 1 Capsule(s) Oral QAM every morning 02/15/20 20 Inactive venlafaxine ER 75 mg capsule,extended release 24 hr RxNorm: 951567 Take 3 Capsule(s) Oral QD 06/12/19 22 023 Inactive polyethylene glycol 3350 17 gram/dose oral powder RxNorm: 955658 Take 17=1 capful Gram(s) Oral BID as needed mix with 4-8oz of liquid 06/12/19 22 024 Inactive icosapent ethyl 1 gram capsule RxNorm: 9180046 Take 2 Capsule(s) (2 gm) Oral BID with meals 10/07/19 023 Inactive Okay to dispense one 2gm tab if you have that available. Levemir FlexTouch U-100 Insulin 100 unit/mL (3 mL) subcutaneous pen RxNorm: 791530 Inject 80 Unit(s) Subcutaneous BID 07/14/19 023 Inactive metoprolol succinate ER 200 mg tablet,extended release 24 hr RxNorm: 777661 Take 1 Tablet(s) Oral QD 08/12/19 025 Inactive loperamide 2 mg capsule RxNorm: 871427 Take 1 Capsule(s) Oral QID as needed 09/06/19 025 Inactive hydralazine 50 mg tablet RxNorm: 707803 Take 1 Tablet(s) Oral QID 08/12/19 025 Inactive Soft Touch Lancets RxNorm: miscellaneous 03/04/20 24 025 Inactive Novolog Flexpen U-100 Insulin aspart 100 unit/mL (3 mL) subcutaneous RxNorm: 7535326 Insert 30 Unit(s) Subcutaneous TID with meals [...] Date Patient Education: Patient Medication Summary Completed 10/24/2024 Referral: [facility] Radiology/Imaging WPtel: [address] [place], [place] [phone] Referral Records requested X2 10/20/2024 Appointment: Brian Munson WPtel: [address] [place], [place] [phone] F/U 08/08/2024 Appointment: Brian Munson WPtel: [address] [place], [place] [phone] F/U 07/11/2024 Referral: [facility]Endocrinology WPtel: [address] [facility] 3 [id number] Referral No Records Received 07/10/2024 Appointment: Brian Munson WPtel: [address] [place], [place] [phone] [place] AWV 02/08/2024 Appointment: Brian Munson WPtel: [address] [facility] 300 [id number] F/U 01/11/2024 Appointment: Amber Sandra WPtel: [address] [facility] 300 [id number] Telehealth Psych Follow Up 12/09 Appointment: Rosalina Shirley WPtel: [address] [facility] 300 [id number] [facility] 10/26/2022 Referral: [facility]el[facility] [address] [facility] [address] [id number] Referral Records Received 09/21/2022 Appointment: Rosalina Shirley WPtel: [address] [facility] 300 [id number] [place] F/U 08/11/2022 Appointment: Rosalina Shirley WPtel: [address] [facility] 300 [id number] [place] F/U 07/14/2022 Appointment: Rosalina Shirley WPtel: [address] [facility] 300 [id number] [place] F/U 02/10/2022 Referral: [facility] WPtel: [address] [facility] [address] [id number] [place] Referral Completed 05/28/2021 Referral: General Cardiology [...] Sister Jyotsna involved in his care cell# [phone] Guardian: Giulia middleton met in person 09/01/21), [...] appointment 05.26.2024 with Jessa Webster MD at [facility]. Start Pioglitazone 15 mg QD. Stop Basaglar insulin. Increase Ozempic 2 mg once wkly. Continue Humalin R U-500 100 units with meals TID. FOLLOW UP 2 MONTHS. If BG >400 add 50 units to next scheduled dose of Humalin R U 500 insulin 06/12/2024
[2024-11-10] MEDS: GI COCKTAIL (VISC LIDO/ANTACID) 30 ML PO (21:57)
--- OUTSIDE RECORDS SUMMARY | 2024-11-10 22:04 | XMS_ITS | CCD ---
Author Organization Unknown Care Team Providers Care Office Worker Name Role Phone Harrison Durham Primary Care Provider Leona vailable Unavailable Chronic Care Management Unavaila ble Summary Purpose DataExchange Insurance Providers Payer name Policy type / Coverage type Covered republican ID Effective Begin Date Effective End Date [place] Part B [id number] Unknown Unknown Medicaid [place] Medicare Part B [id number] Unknown Unknown Family history Sister Brittany Suggs [...] on file 07/11/[address]: [id number] Never smoker 01/16 Sexually Active? Unknown No [...] [facility] 09/03/[address]: [id number] No Alcohol Consum ption 09/02/2020 Allergies, Adverse Reactions, Alerts Substance Reaction Codes Entered Date Inactivated Date Status * NO KNOWN FOOD ALLERGIES Unknown 07/13/2023 No Inactive Date Active LISINOPRIL RxNorm: 33555 02/12/2020 No Inactive Da te Active Metformin HCl Unknown 02/12/2020 No Inactive Cristiano e Active * NO KNOWN ENVIRONMENTAL ALLERGIES Unknown 07/13/2023 No Inactive Date Active Problems Condition Codes Effective Dates Condition St atus 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 ICD-10: K59.01 ICD-9: 564.01 11/07/2024 Active Hypokalemia ICD-10: E87.6 ICD-9: 276.8 11/07/2024 Active Loose stools ICD-10: R19.5 ICD-9: 787.7 11/07/2024 Active Paraparesis of both lower limbs ICD-10: G82.20 ICD-9: 344.1 11/07/2024 Active Seizure disorder ICD-10: G40.909 ICD-9: 345.90 11/07/2024 Active Type 2 diabetes mellitus wit h diabetic polyneuropathy, with long-term current use of insulin ICD-10: E11.42 ICD-9: 250.60 11/07/2024 Active Amputated toe of right foot ICD-10: S98. 131A ICD-9: 895.0 10/10/2024 Active Hypercoagulable state ICD-10: D68.59 ICD-9: 289.81 10/10/2024 Active Lower extremity edema ICD-10: R60.0 ICD-9: 782.3 10/10/2024 Active Major depression, recurrent ICD-10: F33. 9 ICD-9: 296.30 10/10/2024 Active Onychogryposis ICD-10: L60.2 ICD-9: 703.8 10/10/2024 Active Pulmonary nodule SNOMED CT: 274023501 ICD-10: R91.1 ICD-9: 793.11 10/10/2024 Active Recurrent major depressive disorder, in partial remission ICD-10: F33.41 ICD-9: 296.35 10/10/2024 Active Stage 2 chronic kidney disea se due to type 2 diabetes mellitus ICD-10: E11.22 ICD-9: 250.40 10/10/2024 Active Pressure ulcer of left calf, unstageable ICD-10: L89.890 ICD-9: 707.09 10/10/2024 Resolved Body mass index [BMI] 60.0-69.9, adult SNOMED CT: 137563053 ICD-10: Z68.44 ICD-9: V85.44 08/08/2024 Active Mixed incontinence SNOMED CT: 25254886 ICD-10: N39.46 ICD-9: 788.33 08/08/2024 Active Diabetic [...] pain ICD-10: M54.50 ICD-9: 724.2 03/07/2024 Active Physical deconditioning ICD-10: R53.81 ICD-9: [...] hernia ICD-10: K42.9 ICD-9: 553.1 02/08/2024 Active Vitamin D deficiency ICD-10: E55.9 ICD-9: 268.9 02/08/2024 Active Callus of heel ICD-10: L84 ICD-9: 700 10/12/2023 Resolved Gout due to renal impairment ICD-10: M10 .30 ICD-9: 274.10 10/12/2023 Resolved 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 [...] 701.9 09/07/2023 Resolved Coronary artery disease involving cahto coronary artery of cahto heart, angina presence unspecified ICD-10: I25.10 ICD-9: [...] Instructions Culturelle 10 billion cell capsule RxNorm: 665339 Take 1 Capsule(s) Oral QD 11/08/19 25 025 Inactive Culturelle 10 billion cell capsule RxNorm: 634875 Take 1 Capsule(s) Oral QD 11/08/19 25 026 Active hydrocodone 5 mg-acetaminophen 325 mg tablet RxNorm: 145945 Take 1 Tablet(s) Oral Q4H every four hours as needed for pain PRN for severe acute dental pain 10/21/19 25 025 Inactive penicillin V potassium 500 mg tablet RxNorm: 755648 Take 1 Tablet(s) Oral QID Take until dental appointment per ER recommendation 10/21/19 25 025 Inactive hydrocodone 5 mg-acetaminophen 325 mg tablet RxNorm: 661378 Take 1 Tablet(s) Oral Q4H every four hours as needed for pain PRN for severe acute dental pain 10/21/19 25 025 Inactive penicillin V potassium 500 mg tablet RxNorm: 755495 Take 1 Tablet(s) Oral QID Take until dental appointment per ER recommendation 10/21/19 25 025 Inactive potassium chloride ER 20 mEq tablet,extended release RxNorm: 961023 Take 2 Tablet(s) Oral TID (dx: hypokalemia) 09/14/19 25 026 Active potassium chloride ER 20 mEq tablet,extended release RxNorm: 033531 Take 2 Tablet(s) Oral TID (dx: hypokalemia) 09/14/19 25 025 Inactive loperamide 2 mg tablet RxNorm: 458704 Take 2 Tablet(s) Oral UD as directed [...] Date Active senna 8.6 mg tablet RxNorm: 864543 Take 1 Tablet(s) Oral QD as needed and 1 tab BID prn 09/06/19 No Stop Date Active cyclobenzaprine 10 mg tablet RxNorm: 224883 Take 1 Tablet(s) Oral QHS every night at bedtime as needed 09/06/19 25 No Stop Date Active loperamide 2 mg tablet RxNorm: 549298 Take 2 Tablet(s) Oral UD as directed as needed 2 tabs after first loose stool then 1 tab after each subsequent stool PRN Do not exceed 4 doses in 24 hours. Do not administer until after 3 loose stools. 04/22/ 026 Active pioglitazone 15 mg tablet RxNorm: 093982 Take 1 Tablet(s) Oral QD 09/06/19 No Stop Date Active loperamide 2 mg tablet RxNorm: 671720 Take 2 Tablet(s) Oral UD as directed as needed 2 tabs after first loose stool then 1 tab after each subsequent stool PRN Do not exceed 4 doses in 24 hours. Do not administer until after 3 loose stools. 09/06/19 025 Inactive pregabalin 100 mg capsule RxNorm: 483384 1 CAPSULE BY MOUTH EVERY MORNING (DX: NEUROPATHY) 08/23/19 025 Active FACILITY IS REQUESTING REFILL. PRIOR RX HAS BEEN EXHAUSTED. THANK YOU. pregabalin 150 mg capsule RxNorm: 730390 1 CAPSULE BY MOUTH AT BEDTIME (DX: NEUROPATHY) 08/21/19 025 Active FACILITY IS REQUESTING A REFILL OF THIS MEDICATION, THANK YOU! senna 8.6 mg tablet RxNorm: 600581 Take 1 Tablet(s) Oral QD as needed for constipation on day 2 of no bowel movement 08/09/19 025 Inactive Miralax 17 gram/dose oral powder RxNorm: 119870 Administer 17 Gram(s) Oral QD as needed for constipation on day 3 of no bowel movement 08/09/19 025 Inactive senna 8.6 mg tablet RxNorm: 004168 Take 1 Tablet(s) Oral QD as needed for constipation on day 2 of no bowel movement 08/09/19 25 025 Inactive Miralax 17 gram/dose oral powder RxNorm: 201423 Administer 17 Gram(s) Oral QD as needed for constipation on day 3 of no bowel movement 08/09/19 25 025 Inactive pregabalin 100 mg capsule RxNorm: 688448 Take 1 Capsule(s) Oral QAM every morning [...] (Concentrated) Insulin 500 unit/mL subcutaneous soln RxNorm: 388936 Inject 100 Unit(s) Subcutaneous AC before meals Three times daily before meals. 07/24/19 25 025 Inactive ammonium lactate 12 % topical cream RxNorm: 256106 Apply 1 Application Topical BID 07/20/19 25 No Stop Date Active ezetimibe 10 mg tablet RxNorm: 521723 Take 1 Tablet(s) Oral QD 07/18/19 25 No Stop Date Active senna 8.6 mg tablet RxNorm: 617896 Take 1 Tablet(s) Oral QD 07/18/19 25 025 Inactive metoprolol succinate ER 200 mg tablet,extended release 24 hr RxNorm: 953513 Take 1 Tablet(s) Oral QD 06/19/19 25 No Stop Date Active pantoprazole 40 mg tablet,delayed release RxNorm: 679339 Take 1 Tablet(s) Oral QAM every morning 06/19/19 25 No Stop Date Active hydralazine 50 mg tablet RxNorm: 266871 Take 1 Tablet(s) Oral QID 06/19/19 25 No Stop Date Active carbamazepine 200 mg tablet RxNorm: 854105 Take 1 Tablet(s) Oral BID 06/19/19 25 No Stop Date Active amlodipine 10 mg tablet RxNorm: 979415 Take 1 Tablet(s) Oral QD 06/19/19 25 No Stop Date Active Eliquis 5 mg tablet RxNorm: 6218528 Take 1 Tablet(s) Oral BID 06/19/19 25 No Stop Date Active pen needle, diabetic 30 gauge x 3/16 RxNorm: Use 1 6 times per day w/insulin 06/14/19 25 026 Active pen needle, diabetic 30 gauge x 3/16 RxNorm: Use 1 needle 6 times per day w/insulin 06/14/19 25 025 Inactive nystatin 100,000 unit/gram topical powder RxNorm: 312088 Apply 1 Application Topical BID as needed abdominal/breast/ groin folds 05/24/19 25 026 Active pregabalin 100 mg capsule RxNorm: 344869 Take 1 Capsule(s) Oral QAM every morning 05/22/19 025 Inactive nystatin 100,000 unit/gram topical powder RxNorm: 412030 Apply 1 Application Topical BID as needed abdominal/breast/ groin folds 04/11/20 024 Inactive chlorthalidone 25 mg tablet RxNorm: 836215 Take 1 Tablet(s) Oral QAM every morning 04/06/20 No Stop Date Active pregabalin 150 mg capsule RxNorm: 027881 Take 1 Capsule(s) Oral QHS every night at bedtime 03/31/20 024 Inactive Vascepa 1 gram capsule RxNorm: 3680686 Take 2 Capsule(s) Oral BID 03/30/20 025 Active rosuvastatin 40 mg tablet RxNorm: 170991 1 TAB ORALLY EVERY EVENING (DX:CORONARY ARTERY DISEASE) 03/28/20 No Stop Date Active venlafaxine ER 75 mg capsule,extended release 24 hr RxNorm: 894652 3 CAPS (225MG) ORALLY DAILY (DX: MOOD DISORDER) 03/28/20 No Stop Date Active pregabalin 100 mg capsule RxNorm: 307258 Take 1 Capsule(s) Oral QAM every morning 03/20/20 Inactive cholecalciferol (vitamin D3) 1,250 mcg (50,000 unit) capsule RxNorm: 682982 Take 1 Capsule(s) Oral QW once a [...] Insulin 100 unit/mL (3 mL) subcutaneous RxNorm: 5620528 Inject 40 Unit(s) Subcutaneous BID 03/07/20 025 Inactive Please dispense one month supply. Humulin R U-500 (Concentrated) Insulin 500 unit/mL subcutaneous soln RxNorm: 338701 Inject 100 Unit(s) Subcutaneous AC before meals [...] PRN) to be use with new Accu [place] meter 03/04/20 Inactive ok to substitute with any covered alternative test strip FreeStyle Chema 2 Sensor kit RxNorm: Use UD as directed 03/02/20 Inactive Pen Needle 30 gauge x 5/16 RxNorm: Pen(s) Use 1 needle as directed TID 03/02/20 Inactive nystatin 100,000 unit/gram topical powder RxNorm: 840355 Apply 1 Application Topical BID as needed [...] (Concentrated) Insulin 500 unit/mL subcutaneous soln RxNorm: 105586 Inject 100 Unit(s) Subcutaneous TID 02/17/20 24 024 Inactive Humulin R U-500 (Concentrated) Insulin 500 unit/mL subcutaneous soln RxNorm: 553110 Inject 100 Unit(s) Subcutaneous TID 02/10/20 24 024 Inactive Basaglar KwikPen U-100 Insulin 100 unit/mL (3 mL) subcutaneous RxNorm: 9353119 Inject 30 Unit(s) Subcutaneous BID 02/10/20 24 024 Inactive Please dispense one month supply. pregabalin 100 mg capsule RxNorm: 621020 Take 1 Capsule(s) Oral QAM every morning 02/07/20 24 024 Inactive isosorbide mononitrate ER 60 mg tablet,extended release 24 hr RxNorm: 704924 Take 1 Tablet(s) Oral QD 02/01/20 24 025 Active aripiprazole 15 mg tablet RxNorm: 574686 Take 1/2 Tablet(s) Oral QD 02/01/20 24 025 Active torsemide 20 mg tablet RxNorm: 325339 1 TAB ORALLY DAILY (DX: EDEMA) 01/27/20 No Stop Date Active potassium chloride ER 20 mEq tablet,extended release(part/cryst) RxNorm: 5913529 2 TABS (40MEQ) ORALLY TWICE DAILY (DX: HYPOKALEMIA) 01/27/20 24 025 Inactive cephalexin 500 mg capsule RxNorm: 154991 Take 1 Capsule(s) Oral QID 12/17/19 24 024 Inactive cephalexin 500 mg capsule RxNorm: 105883 Take 1 Capsule(s) Oral QID 12/17/19 24 024 Inactive acetaminophen 500 mg tablet RxNorm: 170370 (MAX APAP:4GM/24HR) Take 1 Tablet(s) Oral TID as needed for pain 12/10/19 24 024 Inactive torsemide 20 mg tablet RxNorm: 765626 Take 1 Tablet(s) Oral QD 10/26/19 24 [...] %-0.3 % drops in a dropperette RxNorm: 384306 Apply 1-2 Drop(s) Both eyes BID as needed 09/28/19 24 Inactive erythromycin 5 mg/gram (0.5 %) eye ointment RxNorm: 393997 Apply 1 Application Both eyes QHS every night at bedtime Instill ~1 cm ribbon into affected eye 09/28/19 24 Inactive Artificial Tears (PF) 0.1 %-0.3 % drops in a dropperette RxNorm: 757514 Apply 1-2 Drop(s) Both eyes BID as needed 09/28/19 24 Inactive erythromycin 5 mg/gram (0.5 %) eye ointment RxNorm: 254418 Apply 1 Application Both eyes QHS every night at bedtime Instill ~1 cm ribbon into affected eye 09/28/19 24 Inactive acetaminophen 500 mg tablet RxNorm: 085058 (MAX APAP:4GM/24HR) Take 1 Tablet(s) Oral TID as needed for pain 09/24/19 24 Inactive carvedilol 25 mg tablet RxNorm: 363842 Take 1 Tablet(s) Oral QD 09/08/19 24 No Stop Date Active pregabalin 100 mg capsule RxNorm: 204608 Take 1 Capsule(s) Oral QAM every morning 09/07/19 24 024 Inactive bisacodyl 10 mg rectal suppository RxNorm: 906900 Insert 1 Suppository Rectal QD as needed 07/13/19 24 No Stop Date Active ketoconazole 2 % shampoo RxNorm: 198561 Apply 1 Application Topical UD as directed 07/13/19 24 No Stop Date Active Ozempic 1 mg/dose (4 mg/3 mL) subcutaneous pen injector RxNorm: 9328583 Inject 1 Milligram(s) Subcutaneous QW once a week 07/13/19 24 No Stop Date Active Guaifenesin AC 10 mg-100 mg/5 mL oral liquid RxNorm: 170024 Take 10 Milliliter(s) Oral Q4H every four hours as needed 07/13/19 24 No Stop Date Active hydrocortisone 2.5 % topical cream RxNorm: 819128 Apply 1 Application Topical BID as needed 07/13/19 24 No Stop Date Active rosuvastatin 40 mg tablet RxNorm: 430339 Take 1 Tablet(s) Oral QPM every evening 07/13/19 24 024 Inactive ezetimibe 10 mg tablet RxNorm: 424643 Take 1 Tablet(s) Oral QD 07/13/19 24 025 Inactive polyethylene glycol 3350 17 gram/dose oral powder RxNorm: 901020 Take 17 Gram(s) Oral BID as needed mix in 4-8ox water 07/13/19 24 025 Inactive aripiprazole 15 mg tablet RxNorm: 837818 Take 1/2 Tablet(s) Oral QD 07/13/19 24 024 Inactive isosorbide mononitrate ER 60 mg tablet,extended release 24 hr RxNorm: 973142 Take 1 Tablet(s) Oral QD 07/13/19 24 024 Inactive ammonium lactate 12 % topical cream RxNorm: 674653 Apply 1 Application Topical BID 07/13/19 24 025 Inactive rosuvastatin 20 mg sprinkle capsule RxNorm: 5304228 Take 1 Capsule(s) Oral QD 07/13/19 24 025 Inactive Vascepa 1 gram capsule RxNorm: 1467210 Take 2 Capsule(s) Oral BID 07/13/19 24 024 Inactive venlafaxine ER 75 mg capsule,extended release 24 hr RxNorm: 455082 Take 3 Capsule(s) Oral QD 07/13/19 24 024 Inactive Basaglar KwikPen U-100 Insulin 100 unit/mL (3 mL) subcutaneous RxNorm: 2335463 Inject 30U SubQ twice daily 07/07/19 24 024 Inactive Please dispense one month supply. Basaglar KwikPen U-100 Insulin 100 unit/mL (3 mL) subcutaneous RxNorm: 4468582 Inject 30U SubQ twice daily 07/07/19 24 024 Inactive Please dispense one month supply. pregabalin 150 mg capsule RxNorm: 843378 Take 1 Capsule(s) Oral QHS every night at bedtime 07/05/19 24 024 Inactive pregabalin 150 mg capsule RxNorm: 404192 Take 1 Capsule(s) Oral QHS every night at bedtime 07/05/19 24 024 Inactive polyethylene glycol 3350 17 gram/dose oral powder RxNorm: 260238 Take 1 Packet Oral QD as needed (1 packet = 17g) mix with 4-8oz of liquid 06/15/19 24 024 Inactive bisacodyl 10 mg rectal suppository RxNorm: 872187 Insert one suppository per rectum once daily as needed for constipation 06/15/19 24 024 Inactive bisacodyl 10 mg rectal suppository RxNorm: 253916 Insert one suppository per rectum once daily as needed for constipation 06/15/19 24 024 Inactive pregabalin 100 mg capsule RxNorm: 205107 Take 1 Capsule(s) Oral QAM every morning 04/27/20 23 024 Inactive Levemir FlexPen 100 unit/mL (3 mL) solution subcutaneous insulin pen RxNorm: 723999 Inject 30 Unit(s) Subcutaneous BID 04/27/20 23 024 Inactive rosuvastatin 40 mg tablet RxNorm: 845878 Take 1 Tablet(s) Oral QPM every evening 04/16/20 23 024 Inactive D/C rosuvastatin 20mg venlafaxine ER 75 mg capsule,extended release 24 hr RxNorm: 559973 Take 3 Capsule(s) Oral QD 04/14/20 23 023 Inactive pregabalin 100 mg capsule RxNorm: 999572 Take 1 Capsule(s) Oral QAM every morning [...] strip clotrimazole 1 % topical cream RxNorm: 775092 Take apply topically to abdominal folds twice daily for 14 days 03/12/20 024 Inactive Ozempic 1 mg/dose (4 mg/3 mL) subcutaneous pen injector RxNorm: 9473014 Inject 1 Milligram(s) Subcutaneous QW once a week 03/11/20 023 Inactive rosuvastatin 20 mg tablet RxNorm: 952785 Take 1 Tablet(s) Oral QD 02/26/20 23 023 Inactive d/c pravastatin 80mg Ozempic 1 mg/dose (4 mg/3 mL) subcutaneous pen injector RxNorm: 5993815 Inject 1 Milligram(s) Subcutaneous QW once a week 02/20/20 23 023 Inactive pregabalin 150 mg capsule RxNorm: 022670 Take 1 Capsule(s) Oral HS at bed time 02/19/20 23 023 Inactive pregabalin 100 mg capsule RxNorm: 137987 Take 1 Capsule(s) Oral QAM every morning 02/18/20 23 023 Inactive venlafaxine ER 75 mg capsule,extended release 24 hr RxNorm: 036577 Take 3 Capsule(s) Oral QD 02/04/20 23 023 Inactive FreeStyle Chema 2 Sensor kit RxNorm: use as directed 02/04/20 23 023 Inactive FreeStyle Chema 2 Sensor kit RxNorm: use as directed 02/04/20 23 024 Inactive fluconazole 150 mg tablet RxNorm: 189542 Take 1 Tablet(s) Oral on day 3 and on day 6 02/03/20 024 Inactive venlafaxine ER 150 mg capsule,extended release 24 hr RxNorm: 557933 Take 1 Capsule(s) Oral QD 02/03/20 23 023 Inactive chlorthalidone 25 mg tablet RxNorm: 262001 Take 1 Tablet(s) Oral QAM every morning 02/03/20 024 Inactive acetaminophen 500 mg tablet RxNorm: 431641 1 TABLET ORALLY 3 TIMES DAILY (MAX APAP:4GM/24HR) 12/15/19 023 Inactive potassium chloride ER 20 mEq tablet,extended release RxNorm: 132968 Take 1 Tablet(s) Oral BID 12/09/19 024 Inactive d/c 20mEq once daily (sent from hospital) clotrimazole 1 % topical cream RxNorm: 208670 apply 1g topically to top of feet and in between toes BID 12/09/19 23 025 Inactive nystatin 100,000 unit/gram topical powder RxNorm: 691925 APPLY TO AFFECTED AREAS TOPICALLY 2 TIMES DAILY 11/21/19 23 023 Inactive Nystop 100,000 unit/gram topical powder RxNorm: 088373 Apply to abd folds, under breasts and L side of groin Topical BID x 14 days, then BID PRN 11/20/19 23 023 Inactive dx: yeast dermatitis [place] Ultra Strength 4 %-30 %-10 % topical cream RxNorm: 634754 Apply 1 Gram(s) Topical QID PRN to feet and legs for neuropathic pain 11/11/19 23 024 Inactive clotrimazole 1 % topical cream RxNorm: 633852 Apply 1/2 Gram(s) Topical BID Apply to affected areas of groin, periarea, and abdominal topically 2 times daily 11/10/19 23 023 Inactive hydrocortisone 2.5 % topical cream RxNorm: 541344 Apply 1/2 Gram(s) Topical BID as needed 11/10/19 23 024 Inactive Levemir FlexPen 100 unit/mL (3 mL) solution subcutaneous insulin pen RxNorm: 320490 Inject 30 Unit(s) Subcutaneous BID 10/07/19 23 023 Inactive Humulin R U-500 (Concentrated) Insulin 500 unit/mL subcutaneous soln RxNorm: 580952 Inject 100 Unit(s) Subcutaneous TID 10/07/19 23 024 Inactive Ozempic 0.25 mg or 0.5 mg (2 mg/3 mL) subcutaneous pen injector RxNorm: 1678971 Inject 1/2 Milligram(s) Subcutaneous QW once a week 10/07/19 024 Inactive aripiprazole 15 mg tablet RxNorm: 505594 1/2 TAB (7.5MG) ORALLY DAILY (DX:MAJOR DEPRESSIVE DISORDER) 09/23/19 023 Inactive Accu-Chek Guide test strips RxNorm: Use 1 Test Strip QID 09/15/19 023 Inactive ok to substitute with any covered alternative test strip Lancets,Thin 28 gauge RxNorm: Use 1 as directed QID 09/15/19 23 023 Inactive torsemide 20 mg tablet RxNorm: 834283 Take 1 Tablet(s) Oral BID 09/09/19 024 Inactive d/c once daily dosing carvedilol 25 mg tablet RxNorm: 611841 Take 1 Tablet(s) Oral QD 08/25/19 23 024 Inactive pregabalin 150 mg capsule RxNorm: 296084 1 Capsule(s) Oral HS at bed time 08/18/19 023 Inactive pregabalin 100 mg capsule RxNorm: 308758 1 Capsule(s) Oral QAM every morning 08/18/19 023 Inactive carvedilol 25 mg tablet RxNorm: 113624 1 Tablet(s) Oral QD 07/28/19 23 023 Inactive lisinopril 20 mg tablet RxNorm: 496286 Give 1 Tablet(s) Oral QD 07/28/19 23 023 Inactive Lyrica 150 mg capsule RxNorm: 658772 Take 1 Capsule(s) Oral QHS every night at bedtime 07/19/19 23 023 Inactive d/c 100mg dose Diflucan 150 mg tablet RxNorm: 388058 Take 1 Tablet(s) Oral QD repeat on day 3 and 6 07/19/19 23 023 Inactive pregabalin 100 mg capsule RxNorm: 115652 Take 1 Capsule(s) Oral QAM every morning 07/19/19 23 023 Inactive gatifloxacin 0.5 % eye drops RxNorm: 929017 Instill 1 Drop(s) as directed TID Instill 1 drop in to affected eye(s) starting 1 day prior to surgery and continue until gone (do not exceed 4 weeks). 07/13/19 23 023 Inactive carvedilol 25 mg tablet RxNorm: 154420 2 Tablet(s) Oral BID 07/13/19 23 023 Inactive Humulin R Regular U-100 Insulin 100 unit/mL injection solution RxNorm: 513790 85 Unit(s) Injection TID 07/13/19 23 023 Inactive ketorolac 0.5 % eye drops RxNorm: 359768 Instill 1 Drop(s) as directed QID Instill 1 drop into affected eye(s) 4 times daily starting 1 day prior to surgery and continue until gone (do not exceed 4 weeks). 07/13/19 23 023 Inactive Diflucan 150 mg tablet RxNorm: 211108 Take 1 Tablet(s) Oral QD repeat on day 3 and 6 06/30/19 23 023 Inactive Accu-Chek Guide test strips RxNorm: Use 1 Test Strip QID Use 1 test strip to monitor blood glucose 4 times daily and as needed. Dx:E11.42. 06/23/19 23 023 Inactive ok to substitute with any covered alternative test strip dextromethorphan-gu aifenesin 10 mg-100 mg/5 mL oral liquid RxNorm: 077568 Take 10 Milliliter(s) Oral every 4 hours as needed for cough 06/19/19 23 023 Inactive dextromethorphan-gu aifenesin 10 mg-100 mg/5 mL oral liquid RxNorm: 033417 Take 10 Milliliter(s) Oral every 4 hours as needed for cough 06/19/19 23 023 Inactive Lyrica 150 mg capsule RxNorm: 590827 Take 1 Capsule(s) Oral QHS every night at bedtime 06/18/19 023 Inactive d/c 100mg dose aripiprazole 15 mg tablet RxNorm: 478233 /2 TAB (7.5MG) ORALLY DAILY (DX:MAJOR DEPRESSIVE DISORDER) 06/05/19 023 Inactive pregabalin 100 mg capsule RxNorm: 553256 1 Capsule(s) Oral QAM every morning 06/02/19 023 Inactive Banophen 50 mg capsule RxNorm: 2084515 Take 1 Capsule(s) Oral Q6H every 6 hours as needed 05/19/19 No Stop Date Active Novolog Flexpen U-100 Insulin aspart 100 unit/mL (3 mL) subcutaneous RxNorm: 0425438 Inject 10 Unit(s) Subcutaneous QHS every night at bedtime with nighttime snack 04/08/20 022 Inactive Novolog Flexpen U-100 Insulin aspart 100 unit/mL (3 mL) subcutaneous RxNorm: 1580362 Inject 42 Unit(s) Subcutaneous TID in addition to sliding scale 04/08/20 022 Inactive d/c 36u albuterol sulfate HFA 90 mcg/actuation aerosol inhaler RxNorm: 7747405 Take 2 Puff(s) Inhalation Q4H every four hours as needed as needed for SOB, cough, or wheezing 04/07/20 22 030 Active Banophen 50 mg capsule RxNorm: 2182642 Take 1 Capsule(s) Oral Q6H every 6 hours as needed 04/06/20 023 Inactive diphenhydramine 50 mg tablet RxNorm: 7822091 Take 1 Tablet(s) Oral Q6H every 6 hours as needed 04/06/20 22 022 Inactive diphenhydramine 50 mg tablet RxNorm: 6197045 1 Tablet(s) Oral Q6H every 6 hours as needed 04/06/20 22 022 Inactive Abilify 15 mg tablet RxNorm: 551611 /2 Tablet(s) Oral QD 03/10/20 22 023 Inactive Shingrix (PF) 50 mcg/0.5 mL intramuscular suspension, kit RxNorm: 4260296 Administer 1/2 Milliliter(s) Intramuscular QD one time shingrix step 2 ( step 1 given 11/04/21) WITH needle - Nursing please administer upon arrival and once administered post a bridge message with date of administration, tavern keeper, expiration date, and lot# so we can update [facility] 02/18/20 22 022 Inactive dispense with needle Shingrix (PF) 50 mcg/0.5 mL intramuscular suspension, kit RxNorm: 9576689 Administer 1/2 Milliliter(s) Intramuscular QD one time shingrix step 2 ( step 1 given 11/04/21) WITH needle - Nursing please administer upon arrival and once administered post a bridge message with date of administration, tavern keeper, expiration date, and lot# so we can update [facility] 02/18/20 22 022 Inactive dispense with needle Lyrica 100 mg capsule RxNorm: 496417 Take 1 Capsule(s) Oral QAM every morning 01/08/20 22 022 Inactive d/c 50mg dose acetaminophen 500 mg tablet RxNorm: 384820 Take 1 Tablet(s) Oral TID 01/08/20 22 022 Inactive d/c PRN order Lyrica 150 mg capsule RxNorm: 527128 Take 1 Capsule(s) Oral QHS every night at bedtime 01/08/20 22 023 Inactive d/c 100mg dose polyethylene glycol 3350 17 gram/dose oral powder RxNorm: 430218 Take 17=1 capful Gram(s) Oral QD mix with 4-8oz of liquid 01/08/20 22 025 Inactive take this in addition to BID prn order Abilify 5 mg tablet RxNorm: 764392 Take 1 Tablet(s) Oral QD take 1 tab po QD #30 refill 5 dx: MDD 12/12/19 22 022 Inactive Abilify 5 mg tablet RxNorm: 387187 Take 1 Tablet(s) Oral QD take 1 tab po QD #30 refill 5 dx: MDD 12/12/19 22 022 Inactive Novolog Flexpen U-100 Insulin aspart 100 unit/mL (3 mL) subcutaneous RxNorm: 9560918 Inject 42 Unit(s) Subcutaneous TID in addition to sliding scale 12/10/19 22 022 Inactive d/c 36u chlorthalidone 25 mg tablet RxNorm: 243344 Take 1 Tablet(s) Oral QAM every morning 12/10/19 22 023 Inactive pregabalin 50 mg capsule RxNorm: 067234 Take 1 Capsule(s) Oral QAM every morning 11/12/19 22 022 Inactive tetanus-diphtheria toxoids-Td 2 Lf unit-2 Lf unit/0.5 mL IM suspension RxNorm: 139 Take 0.5 Miscellaneous Intramuscular 11/12/19 22 022 Inactive need tdap - nursing to administer upon arrival pregabalin 50 mg capsule RxNorm: 486510 Take 1 Capsule(s) Oral QAM every morning 10/16/19 22 022 Inactive pregabalin 50 mg capsule RxNorm: 744594 Take 1 Capsule(s) Oral QAM every morning 10/16/19 22 022 Inactive pregabalin 50 mg capsule RxNorm: 593344 1 Capsule(s) Oral QAM every morning 10/15/19 22 022 Inactive Shingrix (PF) 50 mcg/0.5 mL intramuscular suspension, kit RxNorm: 8417392 Administer 1/2 Milliliter(s) Intramuscular one time Nursing please administer upon arrival and once administered post a bridge message with date of administration, 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, expiration date, and lot# so we can [...] aspart 100 unit/mL (3 mL) subcutaneous RxNorm: 9216670 Inject 10 Unit(s) Subcutaneous QHS every night at bedtime with nighttime snack 10/08/19 22 Inactive Shingrix (PF) 50 mcg/0.5 mL intramuscular suspension, kit RxNorm: 1180691 ADMINISTER 2-DOSE SERIES PER CDC GUIDELINES 10/08/19 22 Active Shingrix (PF) 50 mcg/0.5 mL intramuscular suspension, kit RxNorm: 9035599 ADMINISTER 2-DOSE SERIES PER CDC GUIDELINES 10/08/19 22 Inactive Novolog Flexpen U-100 Insulin aspart 100 unit/mL (3 mL) subcutaneous RxNorm: 4123491 Inject 36 Unit(s) Subcutaneous TID in addition to sliding scale 10/08/19 22 Inactive cholecalciferol (vitamin D3) 1,250 mcg (50,000 unit) capsule RxNorm: 842738 Take 1 Capsule(s) Oral QW once a week 10/08/19 Inactive Novofine Autocover 30 gauge x 1/3 needle RxNorm: Use 1 Miscellaneous UD as directed Use 1 needle as directed to administer insulin 5 times a day Dx:E11.42. 10/03/19 Inactive ok to substitute with any covered alternative pen needle benzoyl peroxide 10 % topical cleanser RxNorm: 056099 Apply 1 Application Topical QD apply to face, wash rinse and dry once daily (may change to QOD if drying) 08/19/19 22 022 Inactive (%covered by insurance) #60ml refill 11 dx: acne benzoyl peroxide 10 % topical cleanser RxNorm: 918209 Apply 1 Application Topical QD apply to face, wash rinse and dry once daily (may change to QOD if drying) 08/19/19 022 Inactive (%covered by insurance) #60ml refill 11 dx: acne benzoyl peroxide 10 % topical cleanser RxNorm: 154491 Apply 1 Application Topical QD apply to face, wash rinse and dry once daily (may change to QOD if drying) 08/19/19 22 022 Inactive (%covered by insurance) #60ml refill 11 dx: acne Lyrica 50 mg capsule RxNorm: 156140 Take 1 Capsule(s) Oral QAM every morning Take 1 capsule by mouth once daily 08/19/19 22 022 Inactive benzoyl peroxide 10 % topical cleanser RxNorm: 407615 Apply 1 Application Topical QD apply to face, wash rinse and dry once daily (may change to QOD if drying) 08/19/19 22 022 Inactive (%covered by insurance) #60ml refill 11 dx: acne Lyrica 100 mg capsule RxNorm: 705302 Take 1 Capsule(s) Oral QHS every night at bedtime Take 1 capsule by mouth once daily at bedtime 08/19/19 022 Inactive Lyrica 100 mg capsule RxNorm: 737152 Take 1 Capsule(s) Oral QHS every night at bedtime Take 1 capsule by mouth once daily at bedtime 08/16/19 Inactive Lyrica 50 mg capsule RxNorm: 344896 Take 1 Capsule(s) Oral QAM every morning Take 1 capsule by mouth once daily 08/16/19 Inactive Levemir FlexTouch U-100 Insulin 100 unit/mL (3 mL) subcutaneous pen RxNorm: 707549 Inject 86 Unit(s) Subcutaneous BID 08/05/19 22 022 Inactive d/c 83units BID Lyrica 100 mg capsule RxNorm: 618172 Take 1 Capsule(s) Oral QHS every night at bedtime Take 1 capsule by mouth once daily at bedtime 07/14/19 22 022 Inactive Lyrica 50 mg capsule RxNorm: 227921 Take 1 Capsule(s) Oral QAM every morning Take 1 capsule by mouth once daily 07/14/19 22 022 Inactive Levemir FlexTouch U-100 Insulin 100 unit/mL (3 mL) subcutaneous pen RxNorm: 628903 Inject 83 Unit(s) Subcutaneous BID 07/08/19 22 [...] test strip hydralazine 50 mg tablet RxNorm: 462236 Take 1 Tablet(s) Oral QID 05/05/20 21 022 Inactive venlafaxine ER 225 mg tablet,extended release 24 hr RxNorm: 161754 Take 1 Tablet(s) Oral QD 05/05/20 21 021 Inactive venlafaxine ER 225 mg tablet,extended release 24 hr RxNorm: 955364 Take 1 Tablet(s) Oral QD 05/05/20 022 Inactive isosorbide mononitrate ER 30 mg tablet,extended release 24 hr RxNorm: 324992 Take 1 Tablet(s) Oral QD 05/05/20 024 Inactive hydralazine 50 mg tablet RxNorm: 407801 Take 1 Tablet(s) Oral QID 05/05/20 21 021 Inactive aspirin 81 mg tablet,delayed release RxNorm: 644685 Take 1 Tablet(s) Oral QD 03/31/20 022 Inactive Vitamin D2 1,250 mcg (50,000 unit) capsule RxNorm: 1533390 Take 1 Capsule(s) Oral QW once a week x 12 weeks 03/31/20 022 Inactive Vitamin D2 1,250 mcg (50,000 unit) capsule RxNorm: 2416745 Take 1 Capsule(s) Oral QW once a week 03/31/20 021 Inactive Zetia 10 mg tablet RxNorm: 192328 Take 1 Tablet(s) Oral QD 03/31/20 024 Inactive Zetia 10 mg tablet RxNorm: 191273 Take 1 Tablet(s) Oral QD 03/31/20 021 Inactive hydralazine 25 mg tablet RxNorm: 555057 Take 1 Tablet(s) Oral QID 03/31/20 021 Inactive hydralazine 25 mg tablet RxNorm: 924146 Take 1 Tablet(s) Oral QID 03/31/20 021 Inactive hydralazine 10 mg tablet RxNorm: 181808 Take 1 Tablet(s) Oral QID 03/03/20 021 Inactive cephalexin 500 mg tablet RxNorm: 878662 Take 1 Tablet(s) Oral QID 02/27/20 021 Inactive cephalexin 500 mg tablet RxNorm: 299377 Take 1 Tablet(s) Oral QID 02/27/20 021 Inactive lisinopril 40 mg tablet RxNorm: 499620 Take 1 Tablet(s) Oral QD 02/11/20 023 Inactive Eliquis 5 mg tablet RxNorm: 8305212 Take 1 Tablet(s) Oral BID 01/05/20 21 025 Inactive Eliquis 5 mg tablet RxNorm: 2222633 Take 2 Tablet(s) Oral QD 01/01/20 21 021 Inactive Lyrica 50 mg capsule RxNorm: 728367 Take 1 Capsule(s) Oral QAM every morning 12/24/19 021 Inactive Lyrica 100 mg capsule RxNorm: 449395 Take 1 Capsule(s) Oral QHS every night at bedtime 12/24/19 021 Inactive clotrimazole 1 % topical cream RxNorm: 992170 Apply to right foot and toes Topical BID 12/04/19 21 023 Inactive metoprolol succinate ER 200 mg tablet,extended release 24 hr RxNorm: 054558 Take 1 Tablet(s) Oral QD 12/04/19 023 Inactive ciprofloxacin 500 mg tablet RxNorm: 209564 Take 1 Tablet(s) Oral QD 11/30/19 021 Inactive DX ofloxacin otic drops Accu-Chek Guide test strips RxNorm: USE 1 TO CHECK GLUCOSE 4 TIMES DAILY AND NEEDED 11/15/19 21 023 Inactive Blood Glucose Test strips RxNorm: Use 1 Test Strip QID at PRN 11/05/19 21 023 Inactive E11.42 lisinopril 30 mg tablet RxNorm: 773223 Take 1 Tablet(s) Oral QD 10/30/19 021 Inactive lisinopril 20 mg tablet RxNorm: 810626 Take 1 Tablet(s) Oral QD 10/23/19 021 Inactive lisinopril 20 mg tablet RxNorm: 048608 Take 1 Tablet(s) Oral QD 10/23/19 21 021 Inactive lisinopril 10 mg tablet RxNorm: 485996 Take 1 Tablet(s) Oral QD 10/02/19 21 021 Inactive icosapent ethyl 1 gram capsule RxNorm: 0401814 Take 2 Capsule(s) (2 gm) Oral BID with meals 09/12/19 21 024 Inactive Okay to dispense one 2gm tab if you have that available. icosapent ethyl 1 gram capsule RxNorm: 9303085 Take 2 Capsule(s) Oral BID 09/12/19 21 021 Inactive Okay to dispense one 2gm tab if you have that available. amlodipine 10 mg tablet RxNorm: 167321 Take 1 Tablet(s) Oral QD 09/04/19 21 021 Inactive aspirin 81 mg tablet,delayed release RxNorm: 523047 Take 1 Tablet(s) Oral QD 09/04/19 21 021 Inactive Levemir FlexTouch U-100 Insulin 100 unit/mL (3 mL) subcutaneous pen RxNorm: 467983 Inject 150 Unit(s) Subcutaneous BID 09/04/19 21 022 Inactive venlafaxine ER 150 mg tablet,extended release 24 hr RxNorm: 971547 Take 1 Tablet(s) Oral QD 09/04/19 21 021 Inactive clotrimazole-betame thasone 1 %-0.05 % topical cream RxNorm: 831783 Apply to rash on red area on left abdomen/chest Topical BID 08/10/19 21 021 Inactive amlodipine 5 mg tablet RxNorm: 545424 Take 1 Tablet(s) Oral QD 07/31/19 21 021 Inactive cephalexin 500 mg tablet RxNorm: 405526 Take 1 Tablet(s) Oral BID BID - Twice Daily 07/31/19 21 021 Inactive Start 08/01/20 pantoprazole 40 mg tablet,delayed release RxNorm: 034540 Take 1 Tablet(s) Oral QAM every morning 07/08/19 21 025 Inactive clopidogrel 75 mg tablet RxNorm: 150801 Take 1 Tablet(s) Oral QD 07/08/19 21 021 Inactive Blood Glucose Test strips RxNorm: Use 1 Test Strip QID at PRN 07/08/19 21 021 Inactive E11.42 senna 8.6 mg tablet RxNorm: 499933 Take 1 Tablet(s) Oral QD 07/08/19 21 025 Inactive Novolog Flexpen U-100 Insulin aspart 100 unit/mL (3 mL) subcutaneous RxNorm: 4309429 Administer per sliding scale Milliliter(s) Subcutaneous TID 151-200: 10 u; 201-250: 20 u; 251-300: 30 u; 301-350: 40 u; 351-400: 50 u. 07/08/19 022 Inactive lisinopril 5 mg tablet RxNorm: 510210 Take 1 Tablet(s) Oral QD 07/08/19 21 021 Inactive Novolog Flexpen U-100 Insulin aspart 100 unit/mL (3 mL) subcutaneous RxNorm: 8421272 Inject 85 Unit(s) Subcutaneous TID 07/08/19 022 Inactive pravastatin 80 mg tablet RxNorm: 165260 Take 1 Tablet(s) Oral QHS every night at bedtime 07/08/19 023 Inactive clotrimazole 1 % topical cream RxNorm: 611313 Apply to bilateral groin areas Topical BID 07/08/19 022 Inactive metoprolol succinate ER 200 mg tablet,extended release 24 hr RxNorm: 800200 Take 1 Tablet(s) Oral QD 07/08/19 21 021 Inactive Vitamin D3 25 mcg (1,000 unit) tablet RxNorm: 158445 Take 1 Tablet(s) Oral QD 07/08/19 021 Inactive isosorbide dinitrate 30 mg tablet RxNorm: 857330 Take 1 Tablet(s) Oral QD 07/08/19 21 021 Inactive carbamazepine 200 mg tablet RxNorm: 097191 Take 1 Tablet(s) Oral BID 07/08/19 21 025 Inactive Levemir FlexTouch U-100 Insulin 100 unit/mL (3 mL) subcutaneous pen RxNorm: 037252 Inject 140 Unit(s) Subcutaneous BID 07/08/19 21 021 Inactive torsemide 20 mg tablet RxNorm: 488455 Take 1 Tablet(s) Oral QD 07/08/19 21 023 Inactive venlafaxine 75 mg tablet RxNorm: 270567 Take 1 Tablet(s) Oral QD 07/08/19 21 021 Inactive acetaminophen 500 mg tablet RxNorm: 683075 Take 1 Tablet(s) Oral TID as needed for headache 06/18/19 21 021 Inactive acetaminophen 500 mg tablet RxNorm: 270630 Take 1 Tablet(s) Oral TID as needed for headache 06/18/19 21 021 Inactive Lyrica 100 mg capsule RxNorm: 585556 Take 1 Capsule(s) Oral QHS every night at bedtime 06/11/19 21 021 Inactive Lyrica 50 mg capsule RxNorm: 887949 Take 1 Capsule(s) Oral QAM every morning 06/10/19 21 021 Inactive hydrocortisone 2.5 % topical cream RxNorm: 796780 Apply to bilateral groin creases Topical BID 05/15/20 20 021 Inactive clotrimazole 1 % topical cream RxNorm: 446801 Apply to bilateral groin areas Topical BID 05/15/20 20 021 Inactive Lyrica 50 mg capsule RxNorm: 324328 Take 1 Capsule(s) Oral QAM every morning 05/14/20 20 020 Inactive Lyrica 100 mg capsule RxNorm: 698824 Take 1 Capsule(s) Oral QHS every night [...] Inactive Nystop 100,000 unit/gram topical powder RxNorm: 378090 Apply to abd folds, under breasts and L side of groin Topical BID x 14 days, then BID PRN 04/08/20 20 Inactive dx: yeast dermatitis Lyrica 100 mg capsule RxNorm: 794668 Take 1 Capsule(s) Oral QHS every night at bedtime 03/13/20 Inactive Lyrica 50 mg capsule RxNorm: 192116 Take 1 Capsule(s) Oral QAM every morning 03/13/20 20 Inactive ketoconazole 2 % shampoo RxNorm: 753675 Apply Topical two times a week with showers 03/11/20 20 Inactive cholecalciferol (vitamin D3) 50 mcg (2,000 unit) tablet RxNorm: 324056 Take 1 Tablet(s) Oral QD 03/11/20 20 Inactive Zetia 10 mg tablet RxNorm: 518237 Take 1 Tablet(s) Oral QD 03/07/20 20 021 Inactive Zetia 10 mg tablet RxNorm: 124200 Take 1 Tablet(s) Oral QD 03/07/20 20 Inactive Lyrica 50 mg capsule RxNorm: 809668 Take 1 Capsule(s) Oral QAM every morning 02/15/20 20 Inactive Lyrica 100 mg capsule RxNorm: 876316 Take 1 Capsule(s) Oral QHS every night at bedtime 02/15/20 20 Inactive Lyrica 100 mg capsule RxNorm: 504518 Take 1 Capsule(s) Oral QHS every night at bedtime 02/15/20 20 Inactive Lyrica 50 mg capsule RxNorm: 828180 Take 1 Capsule(s) Oral QAM every morning 02/15/20 20 Inactive venlafaxine ER 75 mg capsule,extended release 24 hr RxNorm: 580132 Take 3 Capsule(s) Oral QD 06/12/19 22 023 Inactive polyethylene glycol 3350 17 gram/dose oral powder RxNorm: 114542 Take 17=1 capful Gram(s) Oral BID as needed mix with 4-8oz of liquid 06/12/19 22 024 Inactive icosapent ethyl 1 gram capsule RxNorm: 2103431 Take 2 Capsule(s) (2 gm) Oral BID with meals 10/07/19 23 023 Inactive Okay to dispense one 2gm tab if you have that available. Levemir FlexTouch U-100 Insulin 100 unit/mL (3 mL) subcutaneous pen RxNorm: 727751 Inject 80 Unit(s) Subcutaneous BID 07/14/19 23 023 Inactive metoprolol succinate ER 200 mg tablet,extended release 24 hr RxNorm: 026600 Take 1 Tablet(s) Oral QD 08/12/19 025 Inactive loperamide 2 mg capsule RxNorm: 301638 Take 1 Capsule(s) Oral QID as needed 09/06/19 025 Inactive hydralazine 50 mg tablet RxNorm: 090699 Take 1 Tablet(s) Oral QID 08/12/19 025 Inactive Soft Touch Lancets RxNorm: miscellaneous 03/04/20 24 025 Inactive Novolog Flexpen U-100 Insulin aspart 100 unit/mL (3 mL) subcutaneous RxNorm: 6471611 Insert 30 Unit(s) Subcutaneous TID with meals [...] Notes Codes Status Date Referral: [facility] [address] [id number] [place] Referral Records requested X2 10/20/2024 Referral: [facility]/Endocrinology WPtel: [address] [place] 3 [id number] [place] Referral No Records Received 07/10/2024 Referral: [facility] WPtel: [phone] [id number] [place] Referral Records Received 09/21/2022 Referral: [facility] WPtel: [address] [facility] [address] [id number] [place] Referral Completed 05/28/2021 Referral: General Cardiology [...] Sister Jyotsna involved in his care cell# [phone] Guardian: Giulia (tapan met in person 09/01/21), [...] with Jessa Webster MD at [facility]. Start Pioglitazone 15 mg QD. Stop Basaglar insulin. Increase Ozempic 2 mg once wkly. Continue Humalin R U-500 100 units with meals TID. FOLLOW UP 2 MONTHS. If BG >400 add 50 units to next scheduled dose of Humalin R U 500 insulin 06/12/2024
--- OUTSIDE RECORDS SUMMARY | 2024-11-10 22:05 | XMS_ITS | CCD ---
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 Unknown No [...] Unknown Longterm 09/03/[address]: 568390921 No Alcohol Consum ption 09/02/2020 Allergies, Adverse Reactions, Alerts Substance Reaction Codes Entered Date Inactivated Date Status * NO KNOWN FOOD ALLERGIES Unknown 07/13/2023 No Inactive Date Active LISINOPRIL RxNorm: 74819 02/12/2020 No Inactive Da te Active Metformin [...] 703.8 10/10/2024 Active Pulmonary nodule SNOMED CT: 844805055 ICD-10: R91.1 ICD-9: 793.11 10/10/2024 Active Recurrent major depressive disorder, in partial remission ICD-10: F33.41 ICD-9: 296.35 10/10/2024 Active Stage 2 chronic kidney disea se due to type 2 diabetes mellitus ICD-10: E11.22 ICD-9: 250.40 10/10/2024 Active Pressure ulcer of left calf, unstageable ICD-10: L89.890 ICD-9: 707.09 10/10/2024 Resolved Body mass index [BMI] 60.0-69.9, adult SNOMED CT: 351396077 ICD-10: Z68.44 ICD-9: V85.44 08/08/2024 Active Mixed incontinence SNOMED CT: 87210289 ICD-10: N39.46 ICD-9: 788.33 08/08/2024 Active Diabetic [...] 701.9 09/07/2023 Resolved Coronary artery disease involving [place] coronary artery [...] Instructions Culturelle 10 billion cell capsule RxNorm: 935734 Take 1 Capsule(s) Oral QD 11/08/19 25 025 Inactive Culturelle 10 billion cell capsule RxNorm: 235920 Take 1 Capsule(s) Oral QD 11/08/19 25 026 Active hydrocodone 5 mg-acetaminophen 325 mg tablet RxNorm: 419561 Take 1 Tablet(s) Oral Q4H every four hours as needed for pain PRN for severe acute dental pain 10/21/19 25 025 Inactive penicillin V potassium 500 mg tablet RxNorm: 474139 Take 1 Tablet(s) Oral QID Take until dental appointment per ER recommendation 10/21/19 25 025 Inactive hydrocodone 5 mg-acetaminophen 325 mg tablet RxNorm: 505400 Take 1 Tablet(s) Oral Q4H every four hours as needed for pain PRN for severe acute dental pain 10/21/19 25 025 Inactive penicillin V potassium 500 mg tablet RxNorm: 200582 Take 1 Tablet(s) Oral QID Take until dental appointment per ER recommendation 10/21/19 25 025 Inactive potassium chloride ER 20 mEq tablet,extended release RxNorm: 763808 Take 2 Tablet(s) Oral TID (dx: hypokalemia) 09/14/19 25 026 Active potassium chloride ER 20 mEq tablet,extended release RxNorm: 209111 Take 2 Tablet(s) Oral TID (dx: hypokalemia) 09/14/19 25 025 Inactive loperamide 2 mg tablet RxNorm: 555637 Take 2 Tablet(s) Oral UD as directed [...] Date Active senna 8.6 mg tablet RxNorm: 519734 Take 1 Tablet(s) Oral QD as needed and 1 tab BID prn 09/06/19 No Stop Date Active cyclobenzaprine 10 mg tablet RxNorm: 308961 Take 1 Tablet(s) Oral QHS every night at bedtime as needed 09/06/19 No Stop Date Active loperamide 2 mg tablet RxNorm: 249445 Take 2 Tablet(s) Oral UD as directed as needed 2 tabs after first loose stool then 1 tab after each subsequent stool PRN Do not exceed 4 doses in 24 hours. Do not administer until after 3 loose stools. 09/06/19 026 Active pioglitazone 15 mg tablet RxNorm: 180549 Take 1 Tablet(s) Oral QD 09/06/19 No Stop Date Active loperamide 2 mg tablet RxNorm: 215878 Take 2 Tablet(s) Oral UD as directed as needed 2 tabs after first loose stool then 1 tab after each subsequent stool PRN Do not exceed 4 doses in 24 hours. Do not administer until after 3 loose stools. 09/06/19 025 Inactive pregabalin 100 mg capsule RxNorm: 227078 1 CAPSULE BY MOUTH EVERY MORNING (DX: NEUROPATHY) 08/23/19 Active FACILITY IS REQUESTING REFILL. PRIOR RX HAS BEEN EXHAUSTED. THANK YOU. pregabalin 150 mg capsule RxNorm: 557011 1 CAPSULE BY MOUTH AT BEDTIME (DX: NEUROPATHY) 08/21/19 025 Active FACILITY IS REQUESTING A REFILL OF THIS MEDICATION, THANK YOU! senna 8.6 mg tablet RxNorm: 951651 Take 1 Tablet(s) Oral QD as needed for constipation on day 2 of no bowel movement 08/09/19 025 Inactive Miralax 17 gram/dose oral powder RxNorm: 065883 Administer 17 Gram(s) Oral QD as needed for constipation on day 3 of no bowel movement 08/09/19 25 025 Inactive senna 8.6 mg tablet RxNorm: 424266 Take 1 Tablet(s) Oral QD as needed for constipation on day 2 of no bowel movement 08/09/19 25 025 Inactive Miralax 17 gram/dose oral powder RxNorm: 681380 Administer 17 Gram(s) Oral QD as needed for constipation on day 3 of no bowel movement 08/09/19 25 025 Inactive pregabalin 100 mg capsule RxNorm: 086137 Take 1 Capsule(s) Oral QAM every morning [...] (Concentrated) Insulin 500 unit/mL subcutaneous soln RxNorm: 646670 Inject 100 Unit(s) Subcutaneous AC before meals Three times daily before meals. 07/24/19 25 025 Inactive ammonium lactate 12 % topical cream RxNorm: 405000 Apply 1 Application Topical BID 07/20/19 25 No Stop Date Active ezetimibe 10 mg tablet RxNorm: 447560 Take 1 Tablet(s) Oral QD 07/18/19 25 No Stop Date Active senna 8.6 mg tablet RxNorm: 358149 Take 1 Tablet(s) Oral QD 07/18/19 25 025 Inactive metoprolol succinate ER 200 mg tablet,extended release 24 hr RxNorm: 826969 Take 1 Tablet(s) Oral QD 06/19/19 25 No Stop Date Active pantoprazole 40 mg tablet,delayed release RxNorm: 248115 Take 1 Tablet(s) Oral QAM every morning 06/19/19 25 No Stop Date Active hydralazine 50 mg tablet RxNorm: 116140 Take 1 Tablet(s) Oral QID 06/19/19 25 No Stop Date Active carbamazepine 200 mg tablet RxNorm: 635103 Take 1 Tablet(s) Oral BID 06/19/19 25 No Stop Date Active amlodipine 10 mg tablet RxNorm: 811063 Take 1 Tablet(s) Oral QD 06/19/19 25 No Stop Date Active Eliquis 5 mg tablet RxNorm: 9509177 Take 1 Tablet(s) Oral BID 06/19/19 25 No Stop Date Active pen needle, diabetic 30 gauge x 3/16 RxNorm: Use 1 6 times per day w/insulin 06/14/19 25 026 Active pen needle, diabetic 30 gauge x 3/16 RxNorm: Use 1 needle 6 times per day w/insulin 06/14/19 25 025 Inactive nystatin 100,000 unit/gram topical powder RxNorm: 801594 Apply 1 Application Topical BID as needed abdominal/breast/ groin folds 05/24/19 25 026 Active pregabalin 100 mg capsule RxNorm: 356301 Take 1 Capsule(s) Oral QAM every morning 05/22/19 025 Inactive nystatin 100,000 unit/gram topical powder RxNorm: 216101 Apply 1 Application Topical BID as needed abdominal/breast/ groin folds 04/11/20 24 024 Inactive chlorthalidone 25 mg tablet RxNorm: 090770 Take 1 Tablet(s) Oral QAM every morning 04/06/20 No Stop Date Active pregabalin 150 mg capsule RxNorm: 697504 Take 1 Capsule(s) Oral QHS every night at bedtime 03/31/20 024 Inactive Vascepa 1 gram capsule RxNorm: 7113848 Take 2 Capsule(s) Oral BID 03/30/20 025 Active rosuvastatin 40 mg tablet RxNorm: 453530 1 TAB ORALLY EVERY EVENING (DX:CORONARY ARTERY DISEASE) 03/28/20 No Stop Date Active venlafaxine ER 75 mg capsule,extended release 24 hr RxNorm: 678928 3 CAPS (225MG) ORALLY DAILY (DX: MOOD DISORDER) 03/28/20 No Stop Date Active pregabalin 100 mg capsule RxNorm: 974056 Take 1 Capsule(s) Oral QAM every morning 03/20/20 024 Inactive cholecalciferol (vitamin D3) 1,250 mcg (50,000 unit) capsule RxNorm: 503073 Take 1 Capsule(s) Oral QW once a [...] Insulin 100 unit/mL (3 mL) subcutaneous RxNorm: 8802836 Inject 40 Unit(s) Subcutaneous BID 03/07/20 025 Inactive Please dispense one month supply. Humulin R U-500 (Concentrated) Insulin 500 unit/mL subcutaneous soln RxNorm: 095207 Inject 100 Unit(s) Subcutaneous AC before meals [...] PRN) to be use with new Accu [place] meter 03/04/20 Inactive ok to substitute with any covered alternative test strip FreeStyle Chema 2 Sensor kit RxNorm: Use UD as directed 03/02/20 Inactive Pen Needle 30 gauge x 09/29 RxNorm: Pen(s) Use 1 needle as directed TID 03/02/20 Inactive nystatin 100,000 unit/gram topical powder RxNorm: 781433 Apply 1 Application Topical BID as needed [...] (Concentrated) Insulin 500 unit/mL subcutaneous soln RxNorm: 295595 Inject 100 Unit(s) Subcutaneous TID 02/17/20 24 024 Inactive Humulin R U-500 (Concentrated) Insulin 500 unit/mL subcutaneous soln RxNorm: 968405 Inject 100 Unit(s) Subcutaneous TID 02/10/20 24 024 Inactive Basaglar KwikPen U-100 Insulin 100 unit/mL (3 mL) subcutaneous RxNorm: 3622218 Inject 30 Unit(s) Subcutaneous BID 02/10/20 24 024 Inactive Please dispense one month supply. pregabalin 100 mg capsule RxNorm: 879436 Take 1 Capsule(s) Oral QAM every morning 02/07/20 24 024 Inactive isosorbide mononitrate ER 60 mg tablet,extended release 24 hr RxNorm: 897974 Take 1 Tablet(s) Oral QD 02/01/20 24 025 Active aripiprazole 15 mg tablet RxNorm: 219564 Take 1/2 Tablet(s) Oral QD 02/01/20 24 025 Active torsemide 20 mg tablet RxNorm: 728848 1 TAB ORALLY DAILY (DX: EDEMA) 01/27/20 24 No Stop Date Active potassium chloride ER 20 mEq tablet,extended release(part/cryst) RxNorm: 5326257 2 TABS (40MEQ) ORALLY TWICE DAILY (DX: HYPOKALEMIA) 01/27/20 24 025 Inactive cephalexin 500 mg capsule RxNorm: 903319 Take 1 Capsule(s) Oral QID 12/17/19 24 024 Inactive cephalexin 500 mg capsule RxNorm: 840283 Take 1 Capsule(s) Oral QID 12/17/19 24 08/02/2 024 Inactive acetaminophen 500 mg tablet RxNorm: 104100 (MAX APAP:4GM/24HR) Take 1 Tablet(s) Oral TID [...] %-0.3 % drops in a dropperette RxNorm: 526289 Apply 1-2 Drop(s) Both eyes BID as needed 09/28/19 24 Inactive erythromycin 5 mg/gram (0.5 %) eye ointment RxNorm: 252457 Apply 1 Application Both eyes QHS every night at bedtime Instill ~1 cm ribbon into affected eye 09/28/19 24 Inactive Artificial Tears (PF) 0.1 %-0.3 % drops in a dropperette RxNorm: 659262 Apply 1-2 Drop(s) Both eyes BID as needed 09/28/19 24 Inactive erythromycin 5 mg/gram (0.5 %) eye ointment RxNorm: 242889 Apply 1 Application Both eyes QHS every night at bedtime Instill ~1 cm ribbon into affected eye 09/28/19 24 Inactive acetaminophen 500 mg tablet RxNorm: 157616 (MAX APAP:4GM/24HR) Take 1 Tablet(s) Oral TID as needed for pain 09/24/19 24 Inactive carvedilol 25 mg tablet RxNorm: 717938 Take 1 Tablet(s) Oral QD 09/08/19 24 No Stop Date Active pregabalin 100 mg capsule RxNorm: 757131 Take 1 Capsule(s) Oral QAM every morning 09/07/19 24 024 Inactive bisacodyl 10 mg rectal suppository RxNorm: 449029 Insert 1 Suppository Rectal QD as needed 07/13/19 24 No Stop Date Active ketoconazole 2 % shampoo RxNorm: 193065 Apply 1 Application Topical UD as directed 07/13/19 24 No Stop Date Active Ozempic 1 mg/dose (4 mg/3 mL) subcutaneous pen injector RxNorm: 3877847 Inject 1 Milligram(s) Subcutaneous QW once a week 07/13/19 24 No Stop Date Active Guaifenesin AC 10 mg-100 mg/5 mL oral liquid RxNorm: 246467 Take 10 Milliliter(s) Oral Q4H every four hours as needed 07/13/19 24 No Stop Date Active hydrocortisone 2.5 % topical cream RxNorm: 908166 Apply 1 Application Topical BID as needed 07/13/19 24 No Stop Date Active rosuvastatin 40 mg tablet RxNorm: 120792 Take 1 Tablet(s) Oral QPM every evening 07/13/19 24 024 Inactive ezetimibe 10 mg tablet RxNorm: 904948 Take 1 Tablet(s) Oral QD 07/13/19 24 025 Inactive polyethylene glycol 3350 17 gram/dose oral powder RxNorm: 515008 Take 17 Gram(s) Oral BID as needed mix in 4-8ox water 07/13/19 24 025 Inactive aripiprazole 15 mg tablet RxNorm: 791969 Take 1/2 Tablet(s) Oral QD 07/13/19 24 024 Inactive isosorbide mononitrate ER 60 mg tablet,extended release 24 hr RxNorm: 293261 Take 1 Tablet(s) Oral QD 07/13/19 24 024 Inactive ammonium lactate 12 % topical cream RxNorm: 606145 Apply 1 Application Topical BID 07/13/19 24 025 Inactive rosuvastatin 20 mg sprinkle capsule RxNorm: 6333756 Take 1 Capsule(s) Oral QD 07/13/19 24 025 Inactive Vascepa 1 gram capsule RxNorm: 5323138 Take 2 Capsule(s) Oral BID 07/13/19 24 024 Inactive venlafaxine ER 75 mg capsule,extended release 24 hr RxNorm: 528424 Take 3 Capsule(s) Oral QD 07/13/19 24 024 Inactive Basaglar KwikPen U-100 Insulin 100 unit/mL (3 mL) subcutaneous RxNorm: 1487121 Inject 30U SubQ twice daily 07/07/19 24 024 Inactive Please dispense one month supply. Basaglar KwikPen U-100 Insulin 100 unit/mL (3 mL) subcutaneous RxNorm: 9868848 Inject 30U SubQ twice daily 07/07/19 24 024 Inactive Please dispense one month supply. pregabalin 150 mg capsule RxNorm: 000972 Take 1 Capsule(s) Oral QHS every night at bedtime 07/05/19 24 024 Inactive pregabalin 150 mg capsule RxNorm: 561452 Take 1 Capsule(s) Oral QHS every night at bedtime 07/05/19 24 024 Inactive polyethylene glycol 3350 17 gram/dose oral powder RxNorm: 462426 Take 1 Packet Oral QD as needed (1 packet = 17g) mix with 4-8oz of liquid 06/15/19 24 024 Inactive bisacodyl 10 mg rectal suppository RxNorm: 089890 Insert one suppository per rectum once daily as needed for constipation 06/15/19 24 024 Inactive bisacodyl 10 mg rectal suppository RxNorm: 779811 Insert one suppository per rectum once daily as needed for constipation 06/15/19 24 024 Inactive pregabalin 100 mg capsule RxNorm: 817125 Take 1 Capsule(s) Oral QAM every morning 04/27/20 23 024 Inactive Levemir FlexPen 100 unit/mL (3 mL) solution subcutaneous insulin pen RxNorm: 484206 Inject 30 Unit(s) Subcutaneous BID 04/27/20 23 024 Inactive rosuvastatin 40 mg tablet RxNorm: 308601 Take 1 Tablet(s) Oral QPM every evening 04/16/20 23 024 Inactive D/C rosuvastatin 20mg venlafaxine ER 75 mg capsule,extended release 24 hr RxNorm: 353306 Take 3 Capsule(s) Oral QD 04/14/20 023 Inactive pregabalin 100 mg capsule RxNorm: 043324 Take 1 Capsule(s) Oral QAM every morning [...] strip clotrimazole 1 % topical cream RxNorm: 128478 Take apply topically to abdominal folds twice daily for 14 days 03/12/20 024 Inactive Ozempic 1 mg/dose (4 mg/3 mL) subcutaneous pen injector RxNorm: 5391415 Inject 1 Milligram(s) Subcutaneous QW once a week 03/11/20 23 023 Inactive rosuvastatin 20 mg tablet RxNorm: 637781 Take 1 Tablet(s) Oral QD 02/26/20 23 023 Inactive d/c pravastatin 80mg Ozempic 1 mg/dose (4 mg/3 mL) subcutaneous pen injector RxNorm: 6666917 Inject 1 Milligram(s) Subcutaneous QW once a week 02/20/20 23 023 Inactive pregabalin 150 mg capsule RxNorm: 436077 Take 1 Capsule(s) Oral HS at bed time 02/19/20 23 023 Inactive pregabalin 100 mg capsule RxNorm: 008623 Take 1 Capsule(s) Oral QAM every morning 02/18/20 23 023 Inactive venlafaxine ER 75 mg capsule,extended release 24 hr RxNorm: 565845 Take 3 Capsule(s) Oral QD 02/04/20 23 023 Inactive FreeStyle Chema 2 Sensor kit RxNorm: use as directed 02/04/20 023 Inactive FreeStyle Chema 2 Sensor kit RxNorm: use as directed 02/04/20 024 Inactive fluconazole 150 mg tablet RxNorm: 935515 Take 1 Tablet(s) Oral on day 3 and on day 6 02/03/20 024 Inactive venlafaxine ER 150 mg capsule,extended release 24 hr RxNorm: 431329 Take 1 Capsule(s) Oral QD 02/03/20 023 Inactive chlorthalidone 25 mg tablet RxNorm: 684551 Take 1 Tablet(s) Oral QAM every morning 02/03/20 024 Inactive acetaminophen 500 mg tablet RxNorm: 157467 1 TABLET ORALLY 3 TIMES DAILY (MAX APAP:4GM/24HR) 12/15/19 023 Inactive potassium chloride ER 20 mEq tablet,extended release RxNorm: 865576 Take 1 Tablet(s) Oral BID 12/09/19 024 Inactive d/c 20mEq once daily (sent from hospital) clotrimazole 1 % topical cream RxNorm: 745128 apply 1g topically to top of feet and in between toes BID 12/09/19 23 025 Inactive nystatin 100,000 unit/gram topical powder RxNorm: 790819 APPLY TO AFFECTED AREAS TOPICALLY 2 TIMES DAILY 11/21/19 23 023 Inactive Nystop 100,000 unit/gram topical powder RxNorm: 549933 Apply to abd folds, under breasts and L side of groin Topical BID x 14 days, then BID PRN 11/20/19 23 023 Inactive dx: yeast dermatitis [place] Ultra Strength 4 %-30 %-10 % topical cream RxNorm: 848750 Apply 1 Gram(s) Topical QID PRN to feet and legs for neuropathic pain 11/11/19 23 024 Inactive clotrimazole 1 % topical cream RxNorm: 589865 Apply 1/2 Gram(s) Topical BID Apply to affected areas of groin, periarea, and abdominal topically 2 times daily 11/10/19 23 023 Inactive hydrocortisone 2.5 % topical cream RxNorm: 900408 Apply 1/2 Gram(s) Topical BID as needed 11/10/19 024 Inactive Levemir FlexPen 100 unit/mL (3 mL) solution subcutaneous insulin pen RxNorm: 408633 Inject 30 Unit(s) Subcutaneous BID 10/07/19 23 023 Inactive Humulin R U-500 (Concentrated) Insulin 500 unit/mL subcutaneous soln RxNorm: 075212 Inject 100 Unit(s) Subcutaneous TID 10/07/19 024 Inactive Ozempic 0.25 mg or 0.5 mg (2 mg/3 mL) subcutaneous pen injector RxNorm: 2108596 Inject 1/2 Milligram(s) Subcutaneous QW once a week 10/07/19 024 Inactive aripiprazole 15 mg tablet RxNorm: 634183 1/2 TAB (7.5MG) ORALLY DAILY (DX:MAJOR DEPRESSIVE DISORDER) 09/23/19 023 Inactive Accu-Chek Guide test strips RxNorm: Use 1 Test Strip QID 09/15/19 23 023 Inactive ok to substitute with any covered alternative test strip Lancets,Thin 28 gauge RxNorm: Use 1 as directed QID 09/15/19 23 023 Inactive torsemide 20 mg tablet RxNorm: 651615 Take 1 Tablet(s) Oral BID 09/09/19 024 Inactive d/c once daily dosing carvedilol 25 mg tablet RxNorm: 133353 Take 1 Tablet(s) Oral QD 08/25/19 024 Inactive pregabalin 150 mg capsule RxNorm: 329022 1 Capsule(s) Oral HS at bed time 08/18/19 023 Inactive pregabalin 100 mg capsule RxNorm: 013985 1 Capsule(s) Oral QAM every morning 08/18/19 023 Inactive carvedilol 25 mg tablet RxNorm: 514788 1 Tablet(s) Oral QD 07/28/19 23 023 Inactive lisinopril 20 mg tablet RxNorm: 197100 Give 1 Tablet(s) Oral QD 07/28/19 23 023 Inactive Lyrica 150 mg capsule RxNorm: 600716 Take 1 Capsule(s) Oral QHS every night at bedtime 07/19/19 23 023 Inactive d/c 100mg dose Diflucan 150 mg tablet RxNorm: 731718 Take 1 Tablet(s) Oral QD repeat on day 3 and 6 07/19/19 23 023 Inactive pregabalin 100 mg capsule RxNorm: 190253 Take 1 Capsule(s) Oral QAM every morning 07/19/19 023 Inactive gatifloxacin 0.5 % eye drops RxNorm: 538106 Instill 1 Drop(s) as directed TID Instill 1 drop in to affected eye(s) starting 1 day prior to surgery and continue until gone (do not exceed 4 weeks). 07/13/19 023 Inactive carvedilol 25 mg tablet RxNorm: 740397 2 Tablet(s) Oral BID 07/13/19 023 Inactive Humulin R Regular U-100 Insulin 100 unit/mL injection solution RxNorm: 418646 85 Unit(s) Injection TID 07/13/19 023 Inactive ketorolac 0.5 % eye drops RxNorm: 787608 Instill 1 Drop(s) as directed QID Instill 1 drop into affected eye(s) 4 times daily starting 1 day prior to surgery and continue until gone (do not exceed 4 weeks). 07/13/19 023 Inactive Diflucan 150 mg tablet RxNorm: 277204 Take 1 Tablet(s) Oral QD repeat on day 3 and 6 06/30/19 023 Inactive Accu-Chek Guide test strips RxNorm: Use 1 Test Strip QID Use 1 test strip to monitor blood glucose 4 times daily and as needed. Dx:E11.42. 06/23/19 023 Inactive ok to substitute with any covered alternative test strip dextromethorphan-gu aifenesin 10 mg-100 mg/5 mL oral liquid RxNorm: 189280 Take 10 Milliliter(s) Oral every 4 hours as needed for cough 06/19/19 023 Inactive dextromethorphan-gu aifenesin 10 mg-100 mg/5 mL oral liquid RxNorm: 928602 Take 10 Milliliter(s) Oral every 4 hours as needed for cough 06/19/19 023 Inactive Lyrica 150 mg capsule RxNorm: 203518 Take 1 Capsule(s) Oral QHS every night at bedtime 06/18/19 023 Inactive d/c 100mg dose aripiprazole 15 mg tablet RxNorm: 757278 /2 TAB (7.5MG) ORALLY DAILY (DX:MAJOR DEPRESSIVE DISORDER) 06/05/19 23 023 Inactive pregabalin 100 mg capsule RxNorm: 591779 1 Capsule(s) Oral QAM every morning 06/02/19 023 Inactive Banophen 50 mg capsule RxNorm: 1787187 Take 1 Capsule(s) Oral Q6H every 6 hours as needed 05/19/19 23 No Stop Date Active Novolog Flexpen U-100 Insulin aspart 100 unit/mL (3 mL) subcutaneous RxNorm: 0746377 Inject 10 Unit(s) Subcutaneous QHS every night at bedtime with nighttime snack 04/08/20 022 Inactive Novolog Flexpen U-100 Insulin aspart 100 unit/mL (3 mL) subcutaneous RxNorm: 7139150 Inject 42 Unit(s) Subcutaneous TID in addition to sliding scale 04/08/20 022 Inactive d/c 36u albuterol sulfate HFA 90 mcg/actuation aerosol inhaler RxNorm: 0638513 Take 2 Puff(s) Inhalation Q4H every four hours as needed as needed for SOB, cough, or wheezing 04/07/20 22 030 Active Banophen 50 mg capsule RxNorm: 9669943 Take 1 Capsule(s) Oral Q6H every 6 hours as needed 04/06/20 023 Inactive diphenhydramine 50 mg tablet RxNorm: 5078367 Take 1 Tablet(s) Oral Q6H every 6 hours as needed 04/06/20 22 022 Inactive diphenhydramine 50 mg tablet RxNorm: 8664485 1 Tablet(s) Oral Q6H every 6 hours as needed 04/06/20 22 022 Inactive Abilify 15 mg tablet RxNorm: 006314 1/2 Tablet(s) Oral QD 03/10/20 22 023 Inactive Shingrix (PF) 50 mcg/0.5 mL intramuscular suspension, kit RxNorm: 8723480 Administer 1/2 Milliliter(s) Intramuscular QD one time shingrix step 2 ( step 1 given 11/04/21) WITH needle - Nursing please administer upon arrival and once administered post a bridge message with date of administration, improvement analyst, expiration date, and lot# so we can update [facility] 02/18/20 22 022 Inactive dispense with needle Shingrix (PF) 50 mcg/0.5 mL intramuscular suspension, kit RxNorm: 2887457 Administer 1/2 Milliliter(s) Intramuscular QD one time shingrix step 2 ( step 1 given 11/04/21) WITH needle - Nursing please administer upon arrival and once administered post a bridge message with date of administration, improvement analyst, expiration date, and lot# so we can update [facility] 02/18/20 22 022 Inactive dispense with needle Lyrica 100 mg capsule RxNorm: 749308 Take 1 Capsule(s) Oral QAM every morning 01/08/20 22 022 Inactive d/c 50mg dose acetaminophen 500 mg tablet RxNorm: 258720 Take 1 Tablet(s) Oral TID 01/08/20 22 022 Inactive d/c PRN order Lyrica 150 mg capsule RxNorm: 293229 Take 1 Capsule(s) Oral QHS every night at bedtime 01/08/20 22 023 Inactive d/c 100mg dose polyethylene glycol 3350 17 gram/dose oral powder RxNorm: 610840 Take 17=1 capful Gram(s) Oral QD mix with 4-8oz of liquid 01/08/20 22 025 Inactive take this in addition to BID prn order Abilify 5 mg tablet RxNorm: 072596 Take 1 Tablet(s) Oral QD take 1 tab po QD #30 refill 5 dx: MDD 12/12/19 22 022 Inactive Abilify 5 mg tablet RxNorm: 550977 Take 1 Tablet(s) Oral QD take 1 tab po QD #30 refill 5 dx: MDD 12/12/19 22 022 Inactive Novolog Flexpen U-100 Insulin aspart 100 unit/mL (3 mL) subcutaneous RxNorm: 5783769 Inject 42 Unit(s) Subcutaneous TID in addition to sliding scale 12/10/19 22 022 Inactive d/c 36u chlorthalidone 25 mg tablet RxNorm: 279627 Take 1 Tablet(s) Oral QAM every morning 12/10/19 22 023 Inactive pregabalin 50 mg capsule RxNorm: 148227 Take 1 Capsule(s) Oral QAM every morning 11/12/19 22 022 Inactive tetanus-diphtheria toxoids-Td 2 Lf unit-2 Lf unit/0.5 mL IM suspension RxNorm: 139 Take 0.5 Miscellaneous Intramuscular 11/12/19 22 022 Inactive need tdap - nursing to administer upon arrival pregabalin 50 mg capsule RxNorm: 781743 Take 1 Capsule(s) Oral QAM every morning 10/16/19 22 022 Inactive pregabalin 50 mg capsule RxNorm: 743913 Take 1 Capsule(s) Oral QAM every morning 10/16/19 22 022 Inactive pregabalin 50 mg capsule RxNorm: 472265 1 Capsule(s) Oral QAM every morning 10/15/19 22 022 Inactive Shingrix (PF) 50 mcg/0.5 mL intramuscular suspension, kit RxNorm: 3080456 Administer 1/2 Milliliter(s) Intramuscular one time Nursing please administer upon arrival and once administered post a bridge message with date of administration, improvement analyst, expiration date, and lot# so we can update [facility]. 10/09/19 22 022 Inactive shingrix step 1 Shingrix (PF) 50 mcg/0.5 mL intramuscular suspension, kit RxNorm: 1333608 Administer 1/2 Milliliter(s) Intramuscular one time Nursing please administer upon arrival and once administered post a bridge message with date of administration, improvement analyst, expiration date, and lot# so we [...] aspart 100 unit/mL (3 mL) subcutaneous RxNorm: 8988379 Inject 10 Unit(s) Subcutaneous QHS every night at bedtime with nighttime snack 10/08/19 Inactive Shingrix (PF) 50 mcg/0.5 mL intramuscular suspension, kit RxNorm: 0932789 ADMINISTER 2-DOSE SERIES PER CDC GUIDELINES 10/08/19 22 Active Shingrix (PF) 50 mcg/0.5 mL intramuscular suspension, kit RxNorm: 7620793 ADMINISTER 2-DOSE SERIES PER CDC GUIDELINES 10/08/19 22 Inactive Novolog Flexpen U-100 Insulin aspart 100 unit/mL (3 mL) subcutaneous RxNorm: 0383682 Inject 36 Unit(s) Subcutaneous TID in addition to sliding scale 10/08/19 Inactive cholecalciferol (vitamin D3) 1,250 mcg (50,000 unit) capsule RxNorm: 494670 Take 1 Capsule(s) Oral QW once a week 10/08/19 Inactive Novofine Autocover 30 gauge x 1/3 needle RxNorm: Use 1 Miscellaneous UD as directed Use 1 needle as directed to administer insulin 5 times a day Dx:E11.42. 10/03/19 Inactive ok to substitute with any covered alternative pen needle benzoyl peroxide 10 % topical cleanser RxNorm: 253212 Apply 1 Application Topical QD apply to face, wash rinse and dry once daily (may change to QOD if drying) 08/19/19 22 022 Inactive (%covered by insurance) #60ml refill 11 dx: acne benzoyl peroxide 10 % topical cleanser RxNorm: 290339 Apply 1 Application Topical QD apply to face, wash rinse and dry once daily (may change to QOD if drying) 08/19/19 22 022 Inactive (%covered by insurance) #60ml refill 11 dx: acne benzoyl peroxide 10 % topical cleanser RxNorm: 297341 Apply 1 Application Topical QD apply to face, wash rinse and dry once daily (may change to QOD if drying) 08/19/19 22 022 Inactive (%covered by insurance) #60ml refill 11 dx: acne Lyrica 50 mg capsule RxNorm: 888063 Take 1 Capsule(s) Oral QAM every morning Take 1 capsule by mouth once daily 08/19/19 22 022 Inactive benzoyl peroxide 10 % topical cleanser RxNorm: 281655 Apply 1 Application Topical QD apply to face, wash rinse and dry once daily (may change to QOD if drying) 08/19/19 22 022 Inactive (%covered by insurance) #60ml refill 11 dx: acne Lyrica 100 mg capsule RxNorm: 754083 Take 1 Capsule(s) Oral QHS every night at bedtime Take 1 capsule by mouth once daily at bedtime 08/19/19 22 022 Inactive Lyrica 100 mg capsule RxNorm: 968149 Take 1 Capsule(s) Oral QHS every night at bedtime Take 1 capsule by mouth once daily at bedtime 08/16/19 22 Inactive Lyrica 50 mg capsule RxNorm: 396177 Take 1 Capsule(s) Oral QAM every morning Take 1 capsule by mouth once daily 08/16/19 22 Inactive Levemir FlexTouch U-100 Insulin 100 unit/mL (3 mL) subcutaneous pen RxNorm: 343900 Inject 86 Unit(s) Subcutaneous BID 08/05/19 22 022 Inactive d/c 83units BID Lyrica 100 mg capsule RxNorm: 306268 Take 1 Capsule(s) Oral QHS every night at bedtime Take 1 capsule by mouth once daily at bedtime 07/14/19 22 022 Inactive Lyrica 50 mg capsule RxNorm: 139948 Take 1 Capsule(s) Oral QAM every morning Take 1 capsule by mouth once daily 07/14/19 22 022 Inactive Levemir FlexTouch U-100 Insulin 100 unit/mL (3 mL) subcutaneous pen RxNorm: 884468 Inject 83 Unit(s) Subcutaneous BID 07/08/19 22 [...] test strip hydralazine 50 mg tablet RxNorm: 388955 Take 1 Tablet(s) Oral QID 12 022 Inactive venlafaxine ER 225 mg tablet,extended release 24 hr RxNorm: 611921 Take 1 Tablet(s) Oral QD 05/05/20 Inactive venlafaxine ER 225 mg tablet,extended release 24 hr RxNorm: 630506 Take 1 Tablet(s) Oral QD 05/05/20 022 Inactive isosorbide mononitrate ER 30 mg tablet,extended release 24 hr RxNorm: 050881 Take 1 Tablet(s) Oral QD 05/05/20 024 Inactive hydralazine 50 mg tablet RxNorm: 332861 Take 1 Tablet(s) Oral QID 05/05/20 Inactive aspirin 81 mg tablet,delayed release RxNorm: 439035 Take 1 Tablet(s) Oral QD 03/31/20 022 Inactive Vitamin D2 1,250 mcg (50,000 unit) capsule RxNorm: 5535779 Take 1 Capsule(s) Oral QW once a week x 12 weeks 03/31/20 022 Inactive Vitamin D2 1,250 mcg (50,000 unit) capsule RxNorm: 9370924 Take 1 Capsule(s) Oral QW once a week 03/31/20 Inactive Zetia 10 mg tablet RxNorm: 782101 Take 1 Tablet(s) Oral QD 03/31/20 024 Inactive Zetia 10 mg tablet RxNorm: 934339 Take 1 Tablet(s) Oral QD 03/31/20 021 Inactive hydralazine 25 mg tablet RxNorm: 249287 Take 1 Tablet(s) Oral QID 03/31/20 021 Inactive hydralazine 25 mg tablet RxNorm: 940838 Take 1 Tablet(s) Oral QID 03/31/20 021 Inactive hydralazine 10 mg tablet RxNorm: 411758 Take 1 Tablet(s) Oral QID 03/03/20 021 Inactive cephalexin 500 mg tablet RxNorm: 085493 Take 1 Tablet(s) Oral QID 02/27/20 021 Inactive cephalexin 500 mg tablet RxNorm: 257280 Take 1 Tablet(s) Oral QID 02/27/20 21 021 Inactive lisinopril 40 mg tablet RxNorm: 112854 Take 1 Tablet(s) Oral QD 02/11/20 023 Inactive Eliquis 5 mg tablet RxNorm: 9267319 Take 1 Tablet(s) Oral BID 01/05/20 21 025 Inactive Eliquis 5 mg tablet RxNorm: 0165326 Take 2 Tablet(s) Oral QD 01/01/20 21 021 Inactive Lyrica 50 mg capsule RxNorm: 273589 Take 1 Capsule(s) Oral QAM every morning 12/24/19 021 Inactive Lyrica 100 mg capsule RxNorm: 025036 Take 1 Capsule(s) Oral QHS every night at bedtime 12/24/19 021 Inactive clotrimazole 1 % topical cream RxNorm: 454540 Apply to right foot and toes Topical BID 12/04/19 21 023 Inactive metoprolol succinate ER 200 mg tablet,extended release 24 hr RxNorm: 074992 Take 1 Tablet(s) Oral QD 12/04/19 023 Inactive ciprofloxacin 500 mg tablet RxNorm: 591917 Take 1 Tablet(s) Oral QD 11/30/19 021 Inactive DX ofloxacin otic drops Accu-Chek Guide test strips RxNorm: USE 1 TO CHECK GLUCOSE 4 TIMES DAILY AND NEEDED 11/15/19 21 023 Inactive Blood Glucose Test strips RxNorm: Use 1 Test Strip QID at PRN 11/05/19 21 023 Inactive E11.42 lisinopril 30 mg tablet RxNorm: 556659 Take 1 Tablet(s) Oral QD 10/30/19 021 Inactive lisinopril 20 mg tablet RxNorm: 189437 Take 1 Tablet(s) Oral QD 10/23/19 21 021 Inactive lisinopril 20 mg tablet RxNorm: 058224 Take 1 Tablet(s) Oral QD 10/23/19 21 021 Inactive lisinopril 10 mg tablet RxNorm: 201971 Take 1 Tablet(s) Oral QD 10/02/19 21 021 Inactive icosapent ethyl 1 gram capsule RxNorm: 8242732 Take 2 Capsule(s) (2 gm) Oral BID with meals 09/12/19 21 024 Inactive Okay to dispense one 2gm tab if you have that available. icosapent ethyl 1 gram capsule RxNorm: 0603430 Take 2 Capsule(s) Oral BID 09/12/19 21 021 Inactive Okay to dispense one 2gm tab if you have that available. amlodipine 10 mg tablet RxNorm: 194686 Take 1 Tablet(s) Oral QD 09/04/19 21 021 Inactive aspirin 81 mg tablet,delayed release RxNorm: 259210 Take 1 Tablet(s) Oral QD 09/04/19 21 021 Inactive Levemir FlexTouch U-100 Insulin 100 unit/mL (3 mL) subcutaneous pen RxNorm: 371686 Inject 150 Unit(s) Subcutaneous BID 09/04/19 21 022 Inactive venlafaxine ER 150 mg tablet,extended release 24 hr RxNorm: 899674 Take 1 Tablet(s) Oral QD 09/04/19 21 021 Inactive clotrimazole-betame thasone 1 %-0.05 % topical cream RxNorm: 773291 Apply to rash on red area on left abdomen/chest Topical BID 08/10/19 21 021 Inactive amlodipine 5 mg tablet RxNorm: 914983 Take 1 Tablet(s) Oral QD 07/31/19 21 021 Inactive cephalexin 500 mg tablet RxNorm: 717569 Take 1 Tablet(s) Oral BID BID - Twice Daily 07/31/19 21 021 Inactive Start 08/01/20 pantoprazole 40 mg tablet,delayed release RxNorm: 421802 Take 1 Tablet(s) Oral QAM every morning 07/08/19 21 025 Inactive clopidogrel 75 mg tablet RxNorm: 704889 Take 1 Tablet(s) Oral QD 07/08/19 21 021 Inactive Blood Glucose Test strips RxNorm: Use 1 Test Strip QID at PRN 07/08/19 21 021 Inactive E11.42 senna 8.6 mg tablet RxNorm: 560352 Take 1 Tablet(s) Oral QD 07/08/19 21 025 Inactive Novolog Flexpen U-100 Insulin aspart 100 unit/mL (3 mL) subcutaneous RxNorm: 5502315 Administer per sliding scale Milliliter(s) Subcutaneous TID 151-200: 10 u; 201-250: 20 u; 251-300: 30 u; 301-350: 40 u; 351-400: 50 u. 07/08/19 21 022 Inactive lisinopril 5 mg tablet RxNorm: 492199 Take 1 Tablet(s) Oral QD 07/08/19 021 Inactive Novolog Flexpen U-100 Insulin aspart 100 unit/mL (3 mL) subcutaneous RxNorm: 3103732 Inject 85 Unit(s) Subcutaneous TID 07/08/19 022 Inactive pravastatin 80 mg tablet RxNorm: 798432 Take 1 Tablet(s) Oral QHS every night at bedtime 07/08/19 023 Inactive clotrimazole 1 % topical cream RxNorm: 996045 Apply to bilateral groin areas Topical BID 07/08/19 022 Inactive metoprolol succinate ER 200 mg tablet,extended release 24 hr RxNorm: 438116 Take 1 Tablet(s) Oral QD 07/08/19 021 Inactive Vitamin D3 25 mcg (1,000 unit) tablet RxNorm: 730036 Take 1 Tablet(s) Oral QD 07/08/19 021 Inactive isosorbide dinitrate 30 mg tablet RxNorm: 529903 Take 1 Tablet(s) Oral QD 07/08/19 21 021 Inactive carbamazepine 200 mg tablet RxNorm: 655143 Take 1 Tablet(s) Oral BID 07/08/19 21 025 Inactive Levemir FlexTouch U-100 Insulin 100 unit/mL (3 mL) subcutaneous pen RxNorm: 270204 Inject 140 Unit(s) Subcutaneous BID 07/08/19 21 021 Inactive torsemide 20 mg tablet RxNorm: 613360 Take 1 Tablet(s) Oral QD 07/08/19 21 023 Inactive venlafaxine 75 mg tablet RxNorm: 631853 Take 1 Tablet(s) Oral QD 07/08/19 21 021 Inactive acetaminophen 500 mg tablet RxNorm: 705384 Take 1 Tablet(s) Oral TID as needed for headache 06/18/19 21 021 Inactive acetaminophen 500 mg tablet RxNorm: 317759 Take 1 Tablet(s) Oral TID as needed for headache 06/18/19 21 021 Inactive Lyrica 100 mg capsule RxNorm: 538708 Take 1 Capsule(s) Oral QHS every night at bedtime 06/11/19 21 021 Inactive Lyrica 50 mg capsule RxNorm: 779110 Take 1 Capsule(s) Oral QAM every morning 06/10/19 21 021 Inactive hydrocortisone 2.5 % topical cream RxNorm: 820334 Apply to bilateral groin creases Topical BID 05/15/20 20 021 Inactive clotrimazole 1 % topical cream RxNorm: 536390 Apply to bilateral groin areas Topical BID 05/15/20 20 021 Inactive Lyrica 50 mg capsule RxNorm: 827125 Take 1 Capsule(s) Oral QAM every morning 05/14/20 20 020 Inactive Lyrica 100 mg capsule RxNorm: 724595 Take 1 Capsule(s) Oral QHS every night [...] Inactive Nystop 100,000 unit/gram topical powder RxNorm: 352850 Apply to abd folds, under breasts and L side of groin Topical BID x 14 days, then BID PRN 04/08/20 20 Inactive dx: yeast dermatitis Lyrica 100 mg capsule RxNorm: 930413 Take 1 Capsule(s) Oral QHS every night at bedtime 03/13/20 20 Inactive Lyrica 50 mg capsule RxNorm: 762801 Take 1 Capsule(s) Oral QAM every morning 03/13/20 20 Inactive ketoconazole 2 % shampoo RxNorm: 811180 Apply Topical two times a week with showers 03/11/20 20 Inactive cholecalciferol (vitamin D3) 50 mcg (2,000 unit) tablet RxNorm: 890345 Take 1 Tablet(s) Oral QD 03/11/20 20 021 Inactive Zetia 10 mg tablet RxNorm: 026652 Take 1 Tablet(s) Oral QD 03/07/20 20 021 Inactive Zetia 10 mg tablet RxNorm: 521680 Take 1 Tablet(s) Oral QD 03/07/20 20 Inactive Lyrica 50 mg capsule RxNorm: 786827 Take 1 Capsule(s) Oral QAM every morning 02/15/20 20 Inactive Lyrica 100 mg capsule RxNorm: 675928 Take 1 Capsule(s) Oral QHS every night at bedtime 02/15/20 20 Inactive Lyrica 100 mg capsule RxNorm: 146791 Take 1 Capsule(s) Oral QHS every night at bedtime 02/15/20 20 Inactive Lyrica 50 mg capsule RxNorm: 444617 Take 1 Capsule(s) Oral QAM every morning 02/15/20 20 Inactive venlafaxine ER 75 mg capsule,extended release 24 hr RxNorm: 491628 Take 3 Capsule(s) Oral QD 06/12/19 023 Inactive polyethylene glycol 3350 17 gram/dose oral powder RxNorm: 992540 Take 17=1 capful Gram(s) Oral BID as needed mix with 4-8oz of liquid 06/12/19 22 024 Inactive icosapent ethyl 1 gram capsule RxNorm: 4299844 Take 2 Capsule(s) (2 gm) Oral BID with meals 10/07/19 023 Inactive Okay to dispense one 2gm tab if you have that available. Levemir FlexTouch U-100 Insulin 100 unit/mL (3 mL) subcutaneous pen RxNorm: 818571 Inject 80 Unit(s) Subcutaneous BID 07/14/19 023 Inactive metoprolol succinate ER 200 mg tablet,extended release 24 hr RxNorm: 108564 Take 1 Tablet(s) Oral QD 08/12/19 025 Inactive loperamide 2 mg capsule RxNorm: 275804 Take 1 Capsule(s) Oral QID as needed 09/06/19 025 Inactive hydralazine 50 mg tablet RxNorm: 278819 Take 1 Tablet(s) Oral QID 08/12/19 025 Inactive Soft Touch Lancets RxNorm: miscellaneous 03/04/20 24 025 Inactive Novolog Flexpen U-100 Insulin aspart 100 unit/mL (3 mL) subcutaneous RxNorm: 5933752 Insert 30 Unit(s) Subcutaneous TID with meals [...] Encounter Performer Location Location Address Codes Date (31099) Home Visit - Est Pt, moderate Diagnosis: Constipation by delayed colonic transit[ICD10: K59.01] Diagnosis: Hypokalemia[ICD10: E87.6] Diagnosis: Loose stools[ICD10: R19.5] Diagnosis: Paraparesis of both lower limbs[ICD10: G82.20] Diagnosis: Seizure disorder[ICD10: G40.909] Diagnosis: Type 2 diabetes mellitus with diabetic polyneuropathy, with long-term current use of insulin[ICD10: E11.42] Harrison Munson [address] [address] Amy [place] [address] CPT-4: 62731 11/07/2024 Plan of Care Planned Activity Notes Codes Status Date Referral: [facility] Radiology/Imaging WPtel: [address] [id number] [place] Referral Records requested X2 10/20/2024 Appointment: Brian Munson WPtel: [address] [facility] 300 [id number] [place] F/U 08/08/2024 Appointment: Brian Munson WPtel: [address] [place], [place] [phone] [place] F/U 07/11/2024 Referral: [facility]/Endocrinology WPtel: [address] [facility] 3 [id number] [place] Referral No Records Received 07/10/2024 Appointment: Brian Munson WPtel: [address] [place], [place] [phone] [place] AWV 02/08/2024 Appointment: Brian Munson WPtel: [address] [place] [address] 300 [id number] [place] F/U 01/11/2024 Appointment: Sandra Clark WPtel: [address] [place], [place] [phone] Telehealth Psych Follow Up 12/09 Appointment: Tapan Shirley WPtel: [address] [facility] 300 [id number] [place] TCM 10/26/2022 Referral: [facility] WPtel: [address], [address] [id number] [place] Referral Records Received 09/21/2022 Appointment: Tapan Shirley WPtel: [address] [facility] 300 [id number] [place] F/U 08/11/2022 Appointment: Tapan Shirely WPtel: [address] [facility] [address] [id number] [place] F/U 07/14/2022 Appointment: Tapan Shirley WPtel: [address] [facility] [address] [id number] [place] F/U 02/10/2022 Referral: [facility] WPtel: [address] [facility] [address] [id number] [place] Referral Completed 05/28/2021 Referral: General Cardiology [...] Sister Jyotsna involved in his care cell# [phone] Guardian: Giulia (tapan met in person 09/01/21), [...] polyneuropathy, with long-term current use of insulin CHRONIC Endocrinology appointment 05.26.2024 with Jessa Webster MD at [facility]. Started Pioglitazone 15 mg QD. Stop Basaglar insulin. Increase Ozempic 2 mg once wkly. Continue Humalin R U-500 100 units with meals TID. FOLLOW UP 2 MONTHS. If BG >400 add 50 units to next scheduled dose of Humalin R U 500 insulin. Continue close follow up with new clarifying plant operator diabetic orders after endocrinology appt - Humulin [...] intake and increased physical activity as able. 09.08.2024: A1c 9.8%. - next A1c due in November. Leonid shares he feels his has a virtual endocrinology appointment yet this month although doesn't know the date - PCP will follow up with nursing on this. BG log reviewed; 100s-300s. Seizure disorder No recent seizure activity No longer follows with neurology Continue to monitor for seizure activity Continue carbamazepine 200 mg PO BID. Constipation by delayed colonic transit Having 3 soft BMs per day Continue PRN medication if constipation occurs - senna and miralax PRN. Encouraged hydration with water and healthy dietary intake as poor dietary intake can lead to altereed bowel movements. Monitor for worsening constipation or loose stools and adjust treatment plan accordingly. Staff to notify [facility] if they see signs of an ileus or bowel obstruction. Hypokalemia Chronic Increased risk for further complications due to high insulin needs for diabetic control .2024 potassium recheck (4.0). Continue potassium supplementation TID. Results shared with Leonid today. Paraparesis of both lower limbs Chronic Walks with a walker Has trapeze above his bed Encouraged mobility as able and as tolerated Loose stools All BM medication PRN now Does have PRN loperamide No S&S of infectious etiology. Poor dietary intake likely the causative factor - which was discussed. He feels he is having diarrhea although reports soft stools not loose or watery. . 11/07/2024
[2024-11-10 23:30] LABS: Troponin, Point-of-Care* 0.01 ng/ml (0.01-0.04)
[2024-11-10 23:45] VITALS: PULSE 85; RESP 19; O2SAT 95
[2024-11-10 23:48] VITALS: BP 146/60; BP 151/64
== END 2024-11-11 00:56 | disposition home or self-care (01) ==
PROVIDERS: Emergency Provider Student in an Organized Health Care Education/Training Program
DX: R07.89 Other chest pain (principal); R06.02 Shortness of breath; R42 Dizziness and giddiness; E11.9 Type 2 diabetes mellitus without complications; Z79.4 Long term (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 insulin; Z86.718 Personal history of other venous thrombosis and embolism; Z79.01 Long term (current) use of anticoagulants
CPT/HCPCS: 36415; 71046; 80048; 83735; 83880; 84484; 85025; 85379; 87631; 93005; 99284; 99285; A9270

== ENCOUNTER 2024-11-11 00:44 | Outpatient (CLI) | payer MEDICARE, MEDICAID, SELFPAY ==
--- OUTSIDE RECORDS SUMMARY | 2024-11-13 16:13 | XMS_ITS | Clinical Summary ---
Author Organization [place] Address [address] [place] [address] Care Team Providers Care Therapy Administrative Assistant Name Role Phone Services, [facility] Physician Primary Care Provi sadia Prince Tobar MD Unavailable Unava ilable Matilde PérezC Unavailable [phone] Torie Jimenez APRN AWNING HANGER SUPERVISOR Unavaila ble Reinaldo Beltran PA-C Unavailable Torie Jimenez APRN AWNING HANGER SUPERVISOR Unavaila ble Allergies Active Allergy Reactions Criticality [...] daily Active cholecalciferol (VITAMIN D3) 1250 mcg (74334 units) capsule Take 1,250 mcg by mouth every 7 days on Wednesdays. 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 Gender Identity Not on file Sexual Orientation Choose not to disclose 2021 8:14 AM ASSISTANT REFINERY OPERATOR Last Filed Vital Signs Vital Sign Reading Time Taken Comments Blood Pressure 118/75 06/19/2024 12:32 PM ASSISTANT REFINERY OPERATOR Pulse 73 06/19/2024 12:32 PM ASSISTANT REFINERY OPERATOR Temperature 36.6 C (97.8 F) 03/08/2024 7:44 AM CDT Respiratory Rate 16 03/07/2024 5:07 PM CDT Oxygen Saturation 95% 06/19/2024 12:32 PM ASSISTANT REFINERY OPERATOR Inhaled Oxygen Concentration - - Weight 176.9 kg (390 lb) 06/19/2024 12:32 PM ASSISTANT REFINERY OPERATOR Height 170.2 cm (5' 7) 06/19/2024 12:32 PM ASSISTANT REFINERY OPERATOR Body Mass Index 61.08 06/19/2024 12:32 PM ASSISTANT REFINERY OPERATOR Plan of Treatment Health Maintenance Due [...] (H) LIPID PROFILE Routine 05/15/2024 11:20 AM ASSISTANT REFINERY OPERATOR Type 2 diabetes mellitus with other specified [...] NP LAB - BLOOD ORDERABLES Final Result [facility] [address] [facility] Lab (1st floor, no room number) [place] [address] * (ABNORMAL) Hemoglobin A1c (09/08/2024 11:35 AM [...] [facility] [address] Lab (1st floor, no room number) [place] [address], [facility] * (ABNORMAL) Basic metabolic panel (09/08/2024 11:35 AM CDT) [facility] Sodium 141 135 - 145 mmol/L 09/08/2024 [...] NP LAB - BLOOD ORDERABLES Final Result [facility] Lab [address] Lab (1st floor, no room number) [place] [address], [facility] * (ABNORMAL) Lipid Profile (05/15/2024 11:20 AM ASSISTANT REFINERY OPERATOR) [facility] Cholesterol 116 <200 mg/dL 05/15/2024 6:03 PM ASSISTANT REFINERY OPERATOR [facility] Triglycerides 575(H) <150 mg/dL 05/15/2024 6:03 PM ASSISTANT REFINERY OPERATOR [facility] Direct Measure HDL 28(L) >=40 mg/dL 05/15/2024 6:03 PM ASSISTANT REFINERY OPERATOR [facility] LDL Cholesterol Calculated 05/15/2024 6:03 PM ASSISTANT REFINERY OPERATOR [facility] Comment:Cannot estimate LDL when triglyceride exceeds 400 mg/dL Non HDL Cholesterol 88 <130 mg/dL 05/15/2024 6:03 PM ASSISTANT REFINERY OPERATOR [facility] Patient Fasting > 8hrs? No 05/15/2024 6:03 PM ASSISTANT REFINERY OPERATOR [facility] Blood BLOOD SPECIMEN / Unknown Client Draw / Unknown 05/15/2024 11:20 AM ASSISTANT REFINERY OPERATOR 05/15/2024 12:53 PM ASSISTANT REFINERY OPERATOR Narrative [facility] - 05/15/2024 6:03 PM ASSISTANT REFINERY OPERATOR Cholesterol Desirable: < 200 mg/dL Borderline High: [...] - BLOOD ORDERABLES Final Result [facility] [address] [facility] [address] [facility] [place] [address], [place] LABORATORY [facility] Lab [address] Lab (1st floor, no room number) [place] [address], [facility] from Last 3 Months or Most Recently Relevant to Health Maintenance Insurance [place] Advance Directives For more information, please contact: [phone] Documents on File Type Date Recorded Patient Client Retention Specialist Expl anation Advance Directives and Living Will [...] yissel nt/ legal decision maker Care Teams Therapy Administrative Assistant Relationship Specialty Start Date End Date Services, [facility] Physician [address] [address] PCP - General 05/22/21 Prince Tobar MD [address] [place] [address] Cardiovascular Disease 03/26/22 Matilde Pérez PA-C [address] [place] [address] Physician Abalone Diver Physician Abalone Diver - Surgical 12/30/23 Torie Jimenez APRN AWNING HANGER SUPERVISOR [address] [place] [address] [address] [place], [place] [id number] Nurse Practitioner Colon & Rectal 03/17/24 Reinaldo Beltran PA-C [facility] [address] [facility] [address] [place] [phone] Physician Abalone Diver Emergency Medicine 03/17/24 Torie Jimenez, BEAD SUPERVISOR AWNING HANGER SUPERVISOR [address] [place] [address] Assigned Surgical Provider 07/09/24
--- OUTSIDE RECORDS SUMMARY | 2024-11-13 16:33 | XMS_ITS | Clinical Summary ---
Author Organization [facility] Address Count includes the [facility] [place] [address] Care Team Providers Care Barrel Burner Name Role Phone Alan Lopez MD Unavailable [phone] Pcp, No Primary Care Provider Unavailabl e Jessa Webster MD Unavailable [phone] Allergies Active Allergy Reactions Criticality Noted [...] type 2 diabetes mellitus (HC),Chronic edema JOBST #[id number] LRG FULL CALF KNEE BLACK 20-30 COMPRESSION [...] extended release tablet 24 HourIndications:C AD in [place] artery Take 1 tablet by mouth once [...] 300 Each 05/30/19 25 Active Insulin Safety [place] (Disp) (novofine autocover) 30 gauge x 1/3Indications:D [...] 04/26/2012 Pt scheduled for ACP session at [facility] clinic at 10 am and no showed. RN Dietary Director, Juanita Yoo, notified and she will [...] No, referral made to Advance Care Plan Threshing Machine Operator. Patient has identified Specific Treatment Preferences: No Sophia Méndez RN .................... 07/06/2011 2:30 PM] Specific limits to treatment preferences NOT identified: ASSUME FULL TREATMENT. Assessment & Plan (05/25/2012 12:51 PM FISH TRAPPER): Advance Care Planning: Disease-specific Session Leonid Leahy is a [facility] patient. His PCP is Leandra Limon at [facility]. Advance care planning discussions were completed with Leonid. He identified his sister, Brittany Suggs, as his healthcare agent. Brittany was not present for ACP session. Understanding of Illness and Disease [place]: Leonid identifies his medical condition as what [...] only a phone call away. Helps manage [facility] services. Leonid identifies the following fears [...] and primary care provider. Hard Choices for [place] People booklet was sent to Leonid and his health care agent for review. Leonid requested all information be mailed to his sister and machine sign writer to place call to sister to explain process. Leonid identified the following concerns during his advance care planning session: needing assistance at home to ensure he is managing his medications and treatments to keep going as is and stabilizing. Is followed by Clinic Heart Doctor for needed services. Questions identified for his primary care provider: none Documents addressed during this advance care planning session: Health Care Directive completed and scanned into medical record. Statement of Treatment Preferences for advanced illness completed and scanned into the medical record. Recommendations/Plan: Leonid to review Advance Care Plan with Leonid's healthcare agent. Solar Field Service Technician will be contacting Leonid's [facility] to explain [...] 2:27 PM Sophia Méndez RN RN Clinic Heart Doctor - [facility] [phone] Vitamin D deficiency 01/06/2011 011 Neuropathy 09/25/2010 [...] Team Description 11/10/2024 8:50 AM CDT Telemedicine [facility] [address] [address] Jessa Webster MD Telehealth (No vitals taken); Diabetes 11/10/2024 Telephone [facility] [address] [address] Jessa Webster MD Other 09/04/2024 10:30 AM CDT Telemedicine [facility] [address] [address] Jessa Webster MD Diabetes; Telehealth (No vitals [...] on file Legal Sex Male 5:24 AM FISH TRAPPER Gender Identity Not on file Sexual Orientation Not on file Obstetrics History Last Filed Vital Signs Vital Sign Reading Time Taken Comments Blood Pressure 130/50 05/26/2024 4:05 PM FISH TRAPPER Pulse 71 05/26/2024 4:05 PM FISH TRAPPER Temperature 36 C (96.8 F) 08/19/2022 1:41 PM CDT Respiratory Rate 16 08/19/2022 2:23 PM CDT Oxygen Saturation 92% 05/26/2024 4:05 PM FISH TRAPPER Inhaled Oxygen Concentration - - Weight 177.8 kg (392 lb) 05/26/2024 4:05 PM FISH TRAPPER Height 167.6 cm (5' 6) 07/14/2022 6:10 PM FISH TRAPPER Body Mass Index 63.27 07/14/2022 6:10 PM FISH TRAPPER Plan of Treatment Upcoming Encounters Date Type Department Care Team (Late st Contact Info) Description 02/12/2025 9:40 AM CDT Telemedicine [facility] [address] [id number] [place] [address] [place] [address] Health Maintenance Due Date Last Done Comments [...] Kay García Medical Devices Implanted Type Area Digital Media Director Device Identifier Shelf Expiration Date Model / Serial / Lot Iol Antelope +20 Tecnis Zcb00 - [id number] Implanted:Qty: 1 on 07/15/2022 by Tanner Fuentes MD at [facility] Left: Eye [employer] 06/24/2025 ZCB00 20.0 / [id number] / Iol Antelope +20 Tecnis Zcb00 - [id number] Implanted:Qty: 1 on 08/19/2022 by Tanner Fuentes MD at [facility] Right: Eye [employer] 06/24/2025 ZCB00 20.0 / [id number] / Procedures Procedure Name Priority Date/Time Associated Diagnosis Comments LIPID PANEL Routine 03/13/2019 2:31 PM CDT Essential hypertriglyceridemia from Last 3 Months or Most Recently Relevant to Health Maintenance Results * (ABNORMAL) LIPID PANEL (03/13/2019 2:31 PM CDT) CHOLESTEROL,TOTAL 193 100 - 199 mg/dL 03/13/2019 9:25 PM CDT [facility] TRIGLYCERIDES 715(H) <150 mg/dL 03/13/2019 9:25 PM CDT [facility] HDL CHOLESTEROL 29(L) >40 mg/dL 9 9:25 PM CDT [facility] NON-HDL CHOLESTEROL 164(H) <145 mg/dl 03/13/2019 9:25 PM CDT [facility] CHOL/HDL RATIO 6.66(H) <4.50 03/13/2019 9:25 PM CDT [facility] LDL CHOLESTEROL 9 9:25 PM CDT [facility] Comment:Invalid LDL when Tri g >400. PROVIDER ORDERED STATUS RANDOM 03/13/2019 9:25 PM CDT [facility] TRA [facility] Blood BLOOD SPECIMEN / Unknown Venipuncture / Unknown 03/13/2019 2:31 PM CDT 03/13/2019 2:31 PM CDT us Suellen Sosa MD CHEMISTRY Final Resul t [facility] [address] [place] [address], from Last 3 Months or Most Recently Relevant to Health Maintenance Insurance MEDICAID MEDICARE PB ONLY MEDICARE PART B HB ONLY MEDICARE PART A HB ONLY Advance Directives Documents on File Type Date Recorded Patient Head Waiter Expl anation POLST 09/26/2014 3:45 PM ALVAREZ [...] 9:30 PM 03/19/2009 6:17 PM Care Teams Barrel Burner Relationship Specialty Start Date End Date Pcp, No . PCP - General 07/15/22 Alan Lopez MD Internal Medicine Internal Medicine 11/20/10 [place] [address] [place] [address] Endocrinology Endocrinology 05/26/24
--- OUTSIDE RECORDS SUMMARY | 2024-11-14 00:59 | XMS_ITS | Clinical Summary ---
Author Organization [place] Address [address] [facility] [place] [address] Care Team Providers Care Timber Trimmer Name Role Phone Services, [facility] Physician Primary Care Provi sadia Prince Tobar MD Unavailable Unava ilable Matilde PérezC Unavailable Torie Jimenez APRN DEVULCANIZER TENDER Unavaila ble Reinaldo Beltran PA-C Unavailable Torie Jimenez APRN DEVULCANIZER TENDER Unavaila ble Allergies Active Allergy Reactions Criticality [...] daily Active cholecalciferol (VITAMIN D3) 1250 mcg (76748 units) capsule Take 1,250 mcg by mouth every 7 days on Wednesdays. Active venlafaxine (EFFEXOR-XR) 75 MG 24 hr capsule Take 225 mg by mouth daily Active hydrALAZINE (APRESOLINE) 50 MG tablet Take 50 mg by mouth 4 times daily Active polyethylene glycol (MIRALAX) 17 GM/Dose powder Take 17 g by mouth daily Active nystatin (MYCOSTATIN) 142001 UNIT/GM external powder Apply topically 2 times [...] Next Due COVID-19 MONOVALENT 12+ (Pfizer) 06/25/2020,05/17 [id number] Novel Flu 05/07/2009 Hepatitis B, Adult (Energix-B/Recombivax [...] on file Legal Sex Male 3:35 AM NAILHEAD OPERATOR Gender Identity Not on file Sexual Orientation Choose not to disclose 2021 8:14 AM NAILHEAD OPERATOR Last Filed Vital Signs Vital Sign Reading Time Taken Comments Blood Pressure 118/75 06/19/2024 12:32 PM NAILHEAD OPERATOR Pulse 73 06/19/2024 12:32 PM NAILHEAD OPERATOR Temperature 36.6 C (97.8 F) 03/08/2024 7:44 AM CDT Respiratory Rate 16 03/07/2024 5:07 PM CDT Oxygen Saturation 95% 06/19/2024 12:32 PM NAILHEAD OPERATOR Inhaled Oxygen Concentration - - Weight 176.9 kg (390 lb) 06/19/2024 12:32 PM NAILHEAD OPERATOR Height 170.2 cm (5' 7) 06/19/2024 12:32 PM NAILHEAD OPERATOR Body Mass Index 61.08 06/19/2024 12:32 PM NAILHEAD OPERATOR Plan of Treatment Health Maintenance Due [...] (H) LIPID PROFILE Routine 05/15/2024 11:20 AM NAILHEAD OPERATOR Type 2 diabetes mellitus with other [...] 11:30 AM CDT 10/23/2024 12:45 PM CDT Harriosn Munson NP LAB - BLOOD ORDERABLES Final Result [facility] [address] [facility] Lab (1st floor, no room number) [place] [address] * (ABNORMAL) Hemoglobin A1c (09/08/2024 11:35 [...] [facility] [address] Lab (1st floor, no room number) [place] [address], [facility] * (ABNORMAL) Basic metabolic panel (09/08/2024 11:35 AM CDT) [facility] Sodium 141 135 - 145 [...] NP LAB - BLOOD ORDERABLES Final Result [facility] Acute Care Lab [address] Lab (1st floor, no room number) [place] [address], [facility] * (ABNORMAL) Lipid Profile (05/15/2024 11:20 AM NAILHEAD OPERATOR) [facility] Cholesterol 116 <200 mg/dL 05/15/2024 6:03 PM NAILHEAD OPERATOR [facility] Triglycerides 575(H) <150 mg/dL 05/15/2024 6:03 PM NAILHEAD OPERATOR [facility] Direct Measure HDL 28(L) >=40 mg/dL 05/15/2024 6:03 PM NAILHEAD OPERATOR [facility] LDL Cholesterol Calculated 05/15/2024 6:03 PM NAILHEAD OPERATOR [facility] Comment:Cannot estimate LDL when triglyceride exceeds 400 mg/dL Non HDL Cholesterol 88 <130 mg/dL 05/15/2024 6:03 PM NAILHEAD OPERATOR [facility] Patient Fasting > 8hrs? No 05/15/2024 6:03 PM NAILHEAD OPERATOR [facility] Blood BLOOD SPECIMEN / Unknown Client Draw / Unknown 05/15/2024 11:20 AM NAILHEAD OPERATOR 05/15/2024 12:53 PM NAILHEAD OPERATOR Narrative [facility] - 05/15/2024 6:03 PM NAILHEAD OPERATOR Cholesterol Desirable: < 200 mg/dL Borderline [...] - BLOOD ORDERABLES Final Result [facility] [address] [facility] [address] [facility], [address] [place] [address], [place] [facility] Acute Care Lab [address] Lab (1st floor, no room number) [place] [address], [facility] from Last 3 Months or Most Recently Relevant to Health Maintenance Insurance [place]ICARE [place] Advance Directives For more information, please contact: [phone] Documents on File Type Date Recorded Patient Patient Advocate Expl anation Advance Directives and Living Will [...] yissel nt/ legal decision maker Care Teams Timber Trimmer Relationship Specialty Start Date End Date Services, [facility] Physician [address] [address] PCP - General 05/22/21 Prince Tobar MD [address] [place] [address] Cardiovascular Disease 03/26/22 Matilde Pérez PA-C [address] [place] [address] Physician Asphalt Tamping Machine Operator Physician Asphalt Tamping Machine Operator - Surgical 12/30/23 Torie Jimenez APRN DEVULCANIZER TENDER [address] [place] [address] [address] [place], [place] [id number] Nurse Practitioner Colon & Rectal 03/17/24 Reinaldo Beltran PA-C Emergency [facility] [address] [facility] [address] [place] [phone] Physician Asphalt Tamping Machine Operator Emergency Medicine 03/17/24 Torie Jimenez, IT ENGINEER DEVULCANIZER TENDER [address] [place] [address] Assigned Surgical Provider 07/09/24
--- OUTSIDE RECORDS SUMMARY | 2024-11-14 01:28 | XMS_ITS | Clinical Summary ---
Author Organization [facility] Address [facility] [place] [address] Care Team Providers Care Email Campaign Manager Name Role Phone Alan Lopez MD Unavailable [phone] Pcp, No Primary Care Provider Unavailabl e Jessa Webster MD Unavailable [phone] Allergies Active Allergy Reactions Criticality Noted [...] type 2 diabetes mellitus (HC),Chronic edema JOBST #[id number] LRG FULL CALF KNEE BLACK 20-30 COMPRESSION [...] extended release tablet 24 HourIndications:C AD in [place] artery Take 1 tablet by mouth once [...] 300 Each 05/30/19 25 Active Insulin Safety [place] (Disp) (novofine autocover) 30 gauge x 1/3Indications:D [...] 04/26/2012 Pt scheduled for ACP session at [facility] clinic at 10 am and no showed. RN Global Sales Manager, Juanita Yoo, notified and she will attempt [...] No, referral made to Advance Care Plan Lighting Technician. Patient has identified Specific Treatment Preferences: No Sophia Méndez RN .................... 07/06/2011 2:30 PM] Specific limits to treatment preferences NOT identified: ASSUME FULL TREATMENT. Assessment & Plan (05/25/2012 12:51 PM COMMUTATOR V RING ASSEMBLER): Advance Care Planning: Disease-specific Session Leonid Leahy is a [facility] [place] patient. His PCP is Leandra Limon at [facility]. Advance care planning discussions were completed with Leonid. He identified his sister, Brittany Suggs, as his healthcare agent. Brittany was not present for ACP session. Understanding of Illness and Disease [place]: Leonid identifies his medical condition as what [...] only a phone call away. Helps manage [facility] services. Leonid identifies the following fears and [...] and primary care provider. Hard Choices for [place] People booklet was sent to Leonid and his health care agent for review. Leonid requested all information be mailed to his sister and speech writer to place call to sister to explain process. Leonid identified the following concerns during his advance care planning session: needing assistance at home to ensure he is managing his medications and treatments to keep going as is and stabilizing. Is followed by [facility] Consultant for needed services. Questions identified for his primary care provider: none Documents addressed during this advance care planning session: Health Care Directive completed and scanned into medical record. Statement of Treatment Preferences for advanced illness completed and scanned into the medical record. Recommendations/Plan: Leonid to review Advance Care Plan with Leonid's healthcare agent. Necktie Maker will be contacting Leonid's [facility] to explain [...] 2:27 PM Sophia Méndez RN RN [facility] Consultant - [facility] [phone] Vitamin D deficiency 01/06/2011 011 Neuropathy 09/25/2010 [...] Team Description 11/10/2024 8:50 AM CDT Telemedicine [facility] [address] [address] Jessa Webster MD Telehealth (No vitals taken); Diabetes 11/10/2024 Telephone [facility] [address] [address] Jessa Webster MD Other 09/04/2024 10:30 AM CDT Telemedicine [facility] [address] [address] Jessa Webster MD Diabetes; Telehealth (No vitals [...] on file Legal Sex Male 5:24 AM COMMUTATOR V RING ASSEMBLER Gender Identity Not on file Sexual Orientation Not on file Obstetrics History Last Filed Vital Signs Vital Sign Reading Time Taken Comments Blood Pressure 130/50 05/26/2024 4:05 PM COMMUTATOR V RING ASSEMBLER Pulse 71 05/26/2024 4:05 PM COMMUTATOR V RING ASSEMBLER Temperature 36 C (96.8 F) 08/19/2022 1:41 PM CDT Respiratory Rate 16 08/19/2022 2:23 PM CDT Oxygen Saturation 92% 05/26/2024 4:05 PM COMMUTATOR V RING ASSEMBLER Inhaled Oxygen Concentration - - Weight 177.8 kg (392 lb) 05/26/2024 4:05 PM COMMUTATOR V RING ASSEMBLER Height 167.6 cm (5' 6) 07/14/2022 6:10 PM COMMUTATOR V RING ASSEMBLER Body Mass Index 63.27 07/14/2022 6:10 PM COMMUTATOR V RING ASSEMBLER Plan of Treatment Upcoming Encounters Date Type Department Care Team (Late st Contact Info) Description 02/12/2025 9:40 AM CDT Telemedicine [facility] [address] [phone] [place] [address] [place] [address] Health Maintenance Due Date Last Done Comments [...] Kay García Medical Devices Implanted Type Area Hogshead Opener Device Identifier Shelf Expiration Date Model / Serial / Lot Iol [place] +20 Tecnis Zcb00 - [id number] Implanted:Qty: 1 on 07/15/2022 by Tanner Fuentes MD at [facility] Left: Eye [employer] 06/24/2025 ZCB00 20.0 / [id number] / Iol [place] +20 Tecnis Zcb00 - [id number] Implanted:Qty: 1 on 08/19/2022 by Tanner Fuentes MD at [facility] Right: Eye [employer] 06/24/2025 ZCB00 20.0 / [id number] / Procedures Procedure Name Priority Date/Time Associated Diagnosis Comments LIPID PANEL Routine 03/13/2019 2:31 PM CDT Essential hypertriglyceridemia from Last 3 Months or Most Recently Relevant to Health Maintenance Results * (ABNORMAL) LIPID PANEL (03/13/2019 2:31 PM CDT) CHOLESTEROL,TOTAL 193 100 - 199 mg/dL 03/13/2019 9:25 PM CDT [facility] TRIGLYCERIDES 715(H) <150 mg/dL 03/13/2019 9:25 PM CDT [facility] HDL CHOLESTEROL 29(L) >40 mg/dL 9 9:25 PM CDT [facility] NON-HDL CHOLESTEROL 164(H) <145 mg/dl 03/13/2019 9:25 PM CDT [facility] CHOL/HDL RATIO 6.66(H) <4.50 03/13/2019 9:25 PM CDT [facility] LDL CHOLESTEROL 9 9:25 PM CDT [facility] Comment:Invalid LDL when Tri g >400. PROVIDER ORDERED STATUS RANDOM 03/13/2019 9:25 PM CDT [facility] Blood BLOOD SPECIMEN / Unknown Venipuncture / Unknown 03/13/2019 2:31 PM CDT 03/13/2019 2:31 PM CDT us Suellen Sosa MD CHEMISTRY Final Resul t [facility] [address] [place] [address], from Last 3 Months or Most Recently Relevant to Health Maintenance Insurance MEDICAID MEDICARE [place] ONLY MEDICARE PART B HB ONLY MEDICARE PART A HB ONLY Advance Directives Documents on File Type Date Recorded Patient Home Care Administrator Expl anation POLST 09/26/2014 3:45 PM ALVAREZ [...] 9:30 PM 03/19/2009 6:17 PM Care Teams Email Campaign Manager Relationship Specialty Start Date End Date Pcp, No . PCP - General 07/15/22 Alan Lopez MD Internal Medicine Internal Medicine 11/20/10 [place] [address] [place] [address] Endocrinology Endocrinology 05/26/24
== END 2024-11-11 00:45 | disposition home or self-care (01) ==
PROVIDERS: Visit Provider Emergency Medicine
DX: R07.89 Other chest pain (principal)
CPT/HCPCS: A0425; A0428

== ENCOUNTER 2024-11-16 12:43 | Outpatient (CLI) | payer MEDICARE, MEDICAID, SELFPAY ==
--- NOTE | 2024-11-16 13:00 | CRLHL7_ITS ---
For Patients: As a result of the Century Cures Act, medical imaging exams and procedure reports are released immediately into your electronic medical record. You may view this report before your referring provider. If you have questions, please contact your health care provider. Indication: Pulmonary nodule Technique: Noncontrast CT chest Please note that all CT scans at this facility use dose modulation, iterative reconstruction, and/or weight-based dosing when appropriate to reduce radiation dose to as low as reasonably achievable. Comparison: 04/27/2024 Findings: Low lung volumes with patchy areas of atelectasis. No consolidative density. No pleural effusion. No suspicious pulmonary nodule. No pulmonary fibrosis. No intrathoracic adenopathy. Atherosclerotic changes. Right renal cyst is again noted. Impression: Low lung volumes with patchy areas of atelectasis. No suspicious pulmonary nodule. Please note that all CT scans at this facility use dose modulation, iterative reconstruction, and/or weight-based dosing when appropriate to reduce radiation dose to as low as reasonably achievable. Dictated by Jaspreet Garner MD @ 11/20/2024 12:45:57 PM (Electronically Signed)
== END 2024-11-16 12:44 | disposition home or self-care (01) ==
LOC: CT 12:44
PROVIDERS: Visit Provider Family Medicine
DX: R91.1 Solitary pulmonary nodule (principal)
CPT/HCPCS: 71250

== ENCOUNTER 2024-12-11 13:54 | Outpatient (CLI) | payer MEDICARE, MEDICAID, SELFPAY | END 2024-12-11 13:55 | disposition home or self-care (01) | PROVIDERS: Visit Provider Family Medicine | DX: R07.89 Other chest pain (principal) | CPT/HCPCS: A0425; A0427 ==

== ENCOUNTER 2024-12-11 14:32 | Inpatient (IN) | payer MEDICARE, MEDICAID, SELFPAY ==
[2024-12-11] VITALS (35 sets, daily range): BP systolic 125–156; BP diastolic 67–85; PULSE 70–93; RESP 15–33; TEMP 36.4–37.2; O2SAT 79–93; BMI 70.8
--- OUTSIDE RECORDS SUMMARY | 2024-12-11 14:42 | XMS_ITS | Clinical Summary ---
Author Organization [facility] Address [address] [place] [address] Phone Care Team Providers Care Finance Effectiveness Manager Name Role Phone Mellisa Shirley PA-C Primary Care Provider [phone] Allergies Active Allergy Reactions Criticality Noted Date [...] 2 Active cholecalciferol (VITAMIN D-3) 1.25 MG (23304 UT) capsule Take 1,250 mcg by mouth [...] Due Date Last Done Comments Pneumococcal Vaccine: 50+ Ye ars (1 of 2 - PCV) 09/13/1978 Colorectal Cancer Screening: Annual FOBT 09/13/2008 Colorectal Cancer Screening: Colonoscopy 09/13/2008 Colorectal Cancer Screening: Sigmoidoscopy 09/13/2008 Diabetes: Hemoglobin A1C 08/31/2022 Diabetes: Ophthalmology Exam 08/31/2022 Diabetes: Pedal Pulse Checked 08/31/2022 Diabetes: Sensory Foot Exam 08/31/2022 Diabetes: Visual Foot Exam 08/31/2022 Influenza Vaccine (#1) 2025 05/29/2021 Hepatitis B Vaccine Aged Out No longe r eligible based on patient's age to complete this topic Insurance Medicaid [place] Medicare Care Teams Finance Effectiveness Manager Relationship Specialty Start Date End Date Mellisa Shirley PA-C PCP - General Physician Car Rental Agent 08/31/22
--- OUTSIDE RECORDS SUMMARY | 2024-12-11 14:47 | XMS_ITS | Clinical Summary ---
Author Organization [facility] [place] Address [address] [place] [address] Care Team Providers Care Open Developer Operator Name Role Phone Services, [facility] Physician Primary Care Provi sadia Prince Tobar MD Unavailable Unava ilable Matilde PérezC Unavailable [phone] Torie Jimenez APRN [facility] Unavaila ble Reinaldo Beltran PA-C Unavailable [phone] Torie Jimenez APRN REHAB A[facility] Unavaila ble Allergies Active Allergy Reactions Criticality [...] daily Active cholecalciferol (VITAMIN D3) 1250 mcg (14018 units) capsule Take 1,250 mcg by mouth every 7 days on Wednesdays. 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 Gender Identity Not on file Sexual Orientation Choose not to disclose 2021 8:14 AM 4TH GRADE TEACHER Last Filed Vital Signs Vital Sign Reading Time Taken Comments Blood Pressure 118/75 06/19/2024 12:32 PM 4TH GRADE TEACHER Pulse 73 06/19/2024 12:32 PM 4TH GRADE TEACHER Temperature 36.6 C (97.8 F) 03/08/2024 7:44 AM CDT Respiratory Rate 16 03/07/2024 5:07 PM CDT Oxygen Saturation 95% 06/19/2024 12:32 PM 4TH GRADE TEACHER Inhaled Oxygen Concentration - - Weight 176.9 kg (390 lb) 06/19/2024 12:32 PM 4TH GRADE TEACHER Height 170.2 cm (5' 7) 06/19/2024 12:32 PM 4TH GRADE TEACHER Body Mass Index 61.08 06/19/2024 12:32 PM 4TH GRADE TEACHER Plan of Treatment Upcoming Encounters Date Type Department Care Team (Late st Contact Info) Description 12/13/2024 2:15 PM CDT Office Visit [facility] Rafiq [address] [facility] [address] [place] [address] Igor Trimble MD Health Maintenance Due Date Last Done Comments [...] ASSESSMENT 09/13/2024 MEDICARE ANNUAL WELLNESS VISIT 09/13/2024 02/02/2023, 11/11/2021, 09/03/2020 COVID-19 VACCINE ( season) 2024 04/17/2024, 06/02/2023, 04/03/2022, Additional history exists A1C 12/08/2024 09/08/2024, 0505/2023, 12/16/2022, Additional history exists INFLUENZA VACCINE (#1) 2025 , 06/02/2023, 04/03/2022, Additional history exists LIPID 05/15/2025 05/15/2024 BMP 09/08/2025 09/08/2024, 04/18, 03/07/2024, Additional history exists ADVANCE CARE PLANNING 06/02/2026 06/02/2021 DTAP/TDAP/TD VACCINE (3 - Td or Tdap) 02/13/2032 02/12/2022, 05/07/2009 ZOSTER VACCINE Completed 03/24/2022, 11/04/2021 PHQ-2 (once per calendar year) Completed 06/19/2024 HPV VACCINE (No Doses Required) Completed MENINGITIS VACCINE Aged Out No longer eligible based on patient's age to complete this topic Procedures Procedure Name Priority Date/Time Associated Diagnosis Comments POTASSIUM Routine 10/23/2024 11:30 AM CDT Hypokalemia BASIC METABOLIC PANEL Routine 09/08/2024 11:35 AM CDT Type 2 diabetes mellitus with diabetic polyneuropathy (H) Hypokalemia 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) HEMOGLOBIN A1C Routine 09/08/2024 11:35 AM CDT Type 2 diabetes mellitus with diabetic polyneuropathy (H) Hypokalemia 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) LIPID PROFILE Routine 05/15/2024 11:20 AM 4TH GRADE TEACHER Type 2 diabetes mellitus with other specified [...] LAB - BLOOD ORDERABLES Final Result LABORATORY [facility] [address] [facility] Lab (1st floor, no room number) [place] [address] * (ABNORMAL) Hemoglobin A1c (09/08/2024 [...] LAB - BLOOD ORDERABLES Final Result LABORATORY [facility] [address] Lab (1st floor, no room number) [place] [address] * (ABNORMAL) Basic metabolic panel (09/08/2024 11:35 AM CDT) Sodium 141 135 - 145 mmol/L 09/08/2024 [...] 09/08/2024 1:16 PM CDT LABORATORY Comment:eGFR calculated us2020 CKD-EPI equation. Calcium 9.0 8.8 - 10.4 mg/dL 09/08/2024 1:16 PM CDT LABORATORY Glucose 238(H) 70 - 99 mg/dL 09/08/2024 1:16 PM CDT LABORATORY Blood BLOOD SPECIMEN / Unknown Client Draw / Unknown 09/08/2024 11:35 AM CDT 09/08/2024 12:16 PM CDT Harrison Munson NP LAB - BLOOD ORDERABLES Final Result [facility] LABORATORY [facility] [address] Lab (1st floor, no room number) [place] [address], [facility] * (ABNORMAL) Lipid Profile (05/15/2024 11:20 AM 4TH GRADE TEACHER) Cholesterol 116 <200 mg/dL 05/15/2024 6:03 PM 4TH GRADE TEACHER [facility] Triglycerides 575(H) <150 mg/dL 05/15/2024 6:03 PM 4TH GRADE TEACHER [facility] Direct Measure HDL 28(L) >=40 mg/dL 05/15/2024 6:03 PM 4TH GRADE TEACHER [facility] LDL Cholesterol Calculated 05/15/2024 6:03 PM 4TH GRADE TEACHER [facility] Comment:Cannot estimate LDL when triglyceride exceeds 400 mg/dL Non HDL Cholesterol 88 <130 mg/dL 05/15/2024 6:03 PM 4TH GRADE TEACHER [facility] Patient Fasting > 8hrs? No 05/15/2024 6:03 PM 4TH GRADE TEACHER [facility] LABORATORY Blood BLOOD SPECIMEN / Unknown Client Draw / Unknown 05/15/2024 11:20 AM 4TH GRADE TEACHER 05/15/2024 12:53 PM 4TH GRADE TEACHER Narrative [facility] - 05/15/2024 6:03 PM 4TH GRADE TEACHER Cholesterol Desirable: < 200 mg/dL Borderline High: [...] 219 mg/dL Very High: >= 220 mg/dL Harrison Munson NP LAB - BLOOD ORDERABLES Final Result [facility] [place] [facility] [address] [facility] [address], Room [address] [place] [address], [place] LABORATORY [facility] [address] [facility] (1st floor, no room number) [place] [address], [facility] from Last 3 Months or Most Recently Relevant to Health Maintenance Insurance MEDICARE [place]ICAID [place] MEDICARE [place]ICAID [place] Advance Directives For more information, please contact: [phone] Documents on File Type Date Recorded Patient Hvac Installation Technician Expl anation Advance Directives and Living [...] yissel nt/ legal decision maker Care Teams Open Developer Operator Relationship Specialty Start Date End Date Services, [facility] Physician [address] [address] PCP - General 05/22/21 Prince Tobar MD [address] [place] [address] Cardiovascular Disease 03/26/22 Matilde Pérez PA-C [address] [place] [address] [id number] Physician Pantry Attendant Physician Pantry Attendant - Surgical 12/30/23 Torie Jimenez APRN [facility] [address] [place] [address] Nurse Practitioner Colon & Rectal 03/17/24 Reinaldo Beltran PA-C Emergency Physicians [facility] [address] [place] [phone] Physician Pantry Attendant Emergency Medicine 03/17/24 Torie Jimenez, CREDIT ADMINISTRATION MANAGER [facility] [address] [place] [address] [address] [place] [address] Assigned Surgical Provider 07/09/24
--- NOTE | 2024-12-11 14:48 | ED.CHESTPAIN ---
HPI - Chest Pain General Time Seen by Provider: 14:48 <Jessica Butler MD - Last Filed: 12/12/24 08:28> Date Seen: 12/11/24 <Jessica Butler MD - Last Filed: 12/12/24 08:28> Chief Complaint: Chest Pain <Jessica Butler MD - Last Filed: 12/12/24 08:28> Stated Complaint: chest pain <Jessica Butler MD - Last Filed: 12/12/24 08:28> Time Seen by Provider: 12/11/24 14:36 <Jessica Butler MD - Last Filed: 12/12/24 08:28> Source: patient, EMS and RN notes reviewed <Jessica Butler MD - Last Filed: 12/12/24 08:28> Mode of arrival: EMS <Jessica Butler MD - Last Filed: 12/12/24 08:28> Limitations: no limitations <Jessica Butler MD - Last Filed: 12/12/24 08:28> History of Present Illness HPI narrative: This 64-year-old male is brought in by EMS from the [facility] where he resides with complaint of chest pain and shortness of breath. He states he has had chest pain for couple of days now. He also notes that he is significantly short of breath. He states he can not even go to the bathroom without having to stop to rest. He has obstructive sleep apnea and is on CPAP, does not wear daily oxygen. EMS did give him four 81 mg aspirin and 1 nitro EN route. He does not feel it really changed symptoms. His blood glucose was 100 per EMS. Was noted to be short of breath with exertion on the seen in the did give him 2 L nasal cannula oxygen. Patient tells me that this feels like his heart attack that he had before. When asked why he did not come in or tell someone earlier, he states that the last time he came in nobody did anything for him. He tells me he was transferred to [place] for his heart attack but typically would doctor in the [facility]. He states there was limitations of where he could go when this happened. My presumption is it was a bed availability issue at the time. He is chronically anticoagulated on Eliquis, states he takes his medicines. His medicines are provided and distributed to him. He denies any fevers chills. His gallbladder is gone. He has had no reflux symptoms, no abdominal symptoms. He wants to know why he is so short of breath. I can see that he has had coronary angiogram 01/12/2020 at [facility] but cannot see any detailed reports. <Jessica Butler MD - Last Filed: 12/12/24 08:28> MD complaint: chest pain <Jessica Butler MD - Last Filed: 12/12/24 08:28> Related Data Home Medications: Home Medications ?Medication ?Instructions ?Recorded ?Confirmed amlodipine 10 mg tablet 10 mg PO DAILY 03/07/22 12/11/24 apixaban 5 mg tablet (Eliquis) 5 mg PO BID 03/07/22 12/11/24 aripiprazole 15 mg tablet 7.5 mg PO DAILY 03/07/22 12/11/24 aspirin 81 mg tablet,delayed 81 mg PO DAILY 03/07/22 12/11/24 release carbamazepine 200 mg tablet 200 mg PO BID 03/07/22 12/11/24 chlorthalidone 25 mg tablet 25 mg PO DAILY 03/07/22 12/11/24 ezetimibe 10 mg tablet 10 mg PO DAILY 03/07/22 12/11/24 hydralazine 50 mg tablet 50 mg PO QID 03/07/22 12/11/24 pantoprazole 40 mg tablet,delayed 40 mg PO DAILY 03/07/22 12/11/24 release polyethylene glycol 3350 17 17 g PO DAILY 03/07/22 12/11/24 gram/dose oral powder pregabalin 100 mg capsule 100 mg PO QAM 03/07/22 12/11/24 pregabalin 150 mg capsule 150 mg PO HS 03/07/22 12/11/24 torsemide 20 mg tablet 20 mg PO DAILY 03/07/22 12/11/24 venlafaxine 75 mg capsule,extended 225 mg PO DAILY 03/07/22 12/11/24 release 24 hr acetaminophen 500 mg tablet 500 mg PO Q6H 06/13/22 12/11/24 albuterol sulfate 90 mcg/actuation 1 inh inhalation Q4H PRN 06/13/22 12/11/24 aerosol inhaler bronchospasm diphenhydramine HCl 50 mg capsule 50 mg PO Q6H PRN itching 06/13/22 12/11/24 (Banophen) icosapent ethyl 1 gram capsule 2 g PO BID 06/13/22 12/11/24 (Vascepa) insulin regular hum U-500 conc 500 100 unit subcut TID 06/13/22 12/11/24 unit/mL(3 mL) subcut pen (Humulin R U-500 (Conc) Insulin Kwikpen) ketoconazole 2 % shampoo 1 applic topical Q3D 06/13/22 12/11/24 loperamide 2 mg capsule 2 mg PO Q6H PRN loose stool 06/13/22 12/11/24 nystatin 100,000 unit/gram topical 1 applic topical BID PRN 06/13/22 12/11/24 powder sennosides 8.6 mg tablet (senna) 8.6 mg PO DAILY 06/13/22 12/11/24 clotrimazole 1 % topical cream 1 applic topical BID 07/25/22 12/11/24 insulin glargine 100 unit/mL (3 30 unit subcut BID 12/27/23 12/11/24 mL) subcutaneous pen (Basaglar KwikPen U-100 Insulin) isosorbide mononitrate 60 mg 60 mg PO DAILY 12/27/23 12/11/24 tablet,extended release 24 hr metoprolol succinate 200 mg 200 mg PO DAILY 12/27/23 12/11/24 tablet,extended release 24 hr semaglutide 1 mg/dose (4 mg/3 mL) 1 mg subcut .weekly 12/27/23 12/11/24 subcutaneous pen injector (Ozempic) carvedilol 25 mg tablet 25 mg PO DAILY 02/20/24 12/11/24 potassium chloride 20 mEq 40 meq PO BID 02/20/24 12/11/24 tablet,extended release(part/cryst) rosuvastatin 40 mg tablet 40 mg PO HS 02/20/24 12/11/24 Previous Rx's ?Medication ?Instructions ?Recorded hydrocortisone 2.5 % topical cream 1 applic topical BID PRN #30 grams 09/14/22 ammonium lactate 12 % lotion 1 applic topical BID #225 grams 04/01/23 diphenoxylate-atropine 2.5 1 tab PO DAILY PRN diarrhea 2 days 04/28/24 mg-0.025 mg tablet (Lomotil) #2 tabs hydrocodone 5 mg-acetaminophen 325 1 tab PO Q4-6H PRN pain #10 tabs 06/05/25 mg tablet <Jessica Butler MD - Last Filed: 12/12/24 08:28> Allergies/Adverse Reactions: Allergies Allergy/AdvReac Type Severity Reaction Status Date / Time lisinopril Allergy Mild Cough Verified 11/11/24 00:29 metformin AdvReac Verified 11/11/24 00:29 <Jessica Butler MD - Last Filed: 12/12/24 08:28> Review of Systems Status of ROS Reports: 6 or more systems reviewed and unremarkable except as noted in History and below <Jessica Butler MD - Last Filed: 12/12/24 08:28> [facility] Medical History: Medical History (Updated 12/11/24 @ 23:42 by Jarad Arceo MD) Chronic hypoxic respiratory failure ?J96.11 - Chronic respiratory failure with hypoxia (ICD-10) Anemia in chronic kidney disease (CKD) ?N18.9 - Chronic kidney disease, unspecified (ICD-10) ?D63.1 - Anemia in chronic kidney disease (ICD-10) Chronic kidney disease (CKD), stage IV (severe) ?N18.4 - Chronic kidney disease, stage 4 (severe) (ICD-10) DISH (diffuse idiopathic skeletal hyperostosis) ?M48.10 - Ankylosing hyperostosis [[place]], site unspecified (ICD-10) Edema ?R60.9 - Edema, unspecified (ICD-10) Neuropathy ?G62.9 - Polyneuropathy, unspecified (ICD-10) Learning disability ?F81.9 - Developmental disorder of scholastic skills, unspecified (ICD-10) Insomnia ?G47.00 - Insomnia, unspecified (ICD-10) Metabolic syndrome ?E88.810 - Metabolic syndrome (ICD-10) Sensorineural hearing loss (SNHL) of both ears ?H90.3 - Sensorineural hearing loss, bilateral (ICD-10) Tinnitus ?H93.19 - Tinnitus, unspecified ear (ICD-10) Hypercholesterolemia ?E78.00 - Pure hypercholesterolemia, unspecified (ICD-10) Insulin dependent diabetes mellitus Recurrent deep vein thrombosis (DVT) ?I82.409 - Acute embolism and thrombosis of unspecified deep veins of unspecified lower extremity (ICD-10) Hypertension ?I10 - Essential (primary) hypertension (ICD-10) Coronary artery disease ?I25.10 - Atherosclerotic heart disease of [place] coronary artery without angina pectoris (ICD-10) Hypertriglyceridemia ?E78.1 - Pure hyperglyceridemia (ICD-10) Epilepsy ?G40.909 - Epilepsy, unspecified, not intractable, without status epilepticus (ICD-10) TASHI on CPAP ?G47.33 - Obstructive sleep apnea (adult) (pediatric) (ICD-10) ?Z99.89 - Dependence on other enabling machines and devices (ICD-10) Tachypnea ?R06.82 - Tachypnea, not elsewhere classified (ICD-10) Fever ?R50.9 - Fever, unspecified (ICD-10) CKD (chronic kidney disease) ?N18.9 - Chronic kidney disease, unspecified (ICD-10) Gout ?M10.9 - Gout, unspecified (ICD-10) Major depressive disorder ?F32.9 - Major depressive disorder, single episode, unspecified (ICD-10) Type 2 diabetes mellitus ?E11.9 - Type 2 diabetes mellitus without complications (ICD-10) Obesity ?E66.9 - Obesity, unspecified (ICD-10) <Jessica Butler MD - Last Filed: 12/12/24 08:28> Surgical History: Surgical History History of cholecystectomy ?Z90.49 - Acquired absence of other specified parts of digestive tract (ICD-10) <Jessica Butler MD - Last Filed: 12/12/24 08:28> Social History: Social History Narrative: Lives in a long-term in [place], [place]. Sisters Brittany Suggs ([phone]) and Blanka Mcduffie ([phone]) listed as contacts and medical decision makers. Paperwork from long-term indicates Full Code status. What is your current living situation?: I presently have a place to live Problems where you live: no known problems Problems where you live details: none In the past 12 months, utilities in danger of being shut off: no In past 12 months, lack of transportation kept you from medical appts, meetings, work, or getting things needed for daily living: no In the past 12 mos, have been you worried that your food would run out before you had money to buy more?: never true In the past 12 mos, the food you bought just didn't last and you didn't have money to buy more?: never true Highest level of school completed/degree received: 12th grade, no diploma Smoking Status: Never smoker Do you use any of these nicotine containing products: None Second hand tobacco smoke exposure: No How often do you have a drink containing alcohol: never How often do you have six or more drinks on one occasion: Never AUDIT-C Alcohol total score: 0 Non-prescribed substance use: denies use Caffeine: No How often does anyone, including family, friends and others, physically hurt you: never How often does anyone, including family, friends and others, insult or talk down to you: never How often does anyone, including family, friends and others, threaten you with harm: never How often does anyone, including family, friends and others, scream or curse at you: never service: No <Jessica Butler MD - Last Filed: 12/12/24 08:28> Exam Const Vital Signs, click to edit/add: Vital Signs - 24 hr 12/11/24 14:42 12/11/24 14:44 12/11/24 14:45 Temperature 98.9 F Pulse Rate 86 86 Pulse Rate [Pulse Oximeter] 90 Respiratory Rate 24 25 H 25 H Blood Pressure Blood Pressure [Left Upper Arm] 125/67 Pulse Oximetry 89 91 91 Oxygen Delivery Method Room Air Oxygen Flow Rate 12/11/24 15:00 12/11/24 15:01 12/11/24 15:15 Temperature Pulse Rate 93 Pulse Rate [Pulse Oximeter] Respiratory Rate 17 17 Blood Pressure Blood Pressure [Left Upper Arm] Pulse Oximetry 90 92 Oxygen Delivery Method Oxygen Flow Rate 12/11/24 15:30 12/11/24 15:31 12/11/24 15:45 Temperature Pulse Rate 85 85 85 Pulse Rate [Pulse Oximeter] Respiratory Rate 16 17 23 Blood Pressure 133/68 Blood Pressure [Left Upper Arm] Pulse Oximetry 92 91 90 Oxygen Delivery Method Room Air Oxygen Flow Rate 12/11/24 16:00 12/11/24 16:15 12/11/24 16:30 Temperature Pulse Rate 82 Pulse Rate [Pulse Oximeter] Respiratory Rate 20 22 29 H Blood Pressure Blood Pressure [Left Upper Arm] Pulse Oximetry 89 Oxygen Delivery Method Oxygen Flow Rate 12/11/24 16:32 12/11/24 16:47 12/11/24 17:00 Temperature Pulse Rate 82 80 Pulse Rate [Pulse Oximeter] Respiratory Rate 24 15 21 Blood Pressure 138/85 Blood Pressure [Left Upper Arm] Pulse Oximetry 90 91 Oxygen Delivery Method Nasal Cannula Oxygen Flow Rate 2 12/11/24 17:15 12/11/24 17:30 12/11/24 17:45 Temperature Pulse Rate Pulse Rate [Pulse Oximeter] Respiratory Rate 29 H 30 H 25 H Blood Pressure Blood Pressure [Left Upper Arm] Pulse Oximetry Oxygen Delivery Method Oxygen Flow Rate 12/11/24 18:00 12/11/24 18:15 12/11/24 18:25 Temperature Pulse Rate 80 82 Pulse Rate [Pulse Oximeter] Respiratory Rate 30 H 29 H 30 H Blood Pressure 156/76 H Blood Pressure [Left Upper Arm] Pulse Oximetry 79 L 88 Oxygen Delivery Method Nasal Cannula Oxygen Flow Rate 2 12/11/24 18:26 12/11/24 18:30 12/11/24 18:45 Temperature Pulse Rate 85 83 79 Pulse Rate [Pulse Oximeter] Respiratory Rate 31 H 33 H 30 H Blood Pressure Blood Pressure [Left Upper Arm] Pulse Oximetry 88 88 89 Oxygen Delivery Method OxyMask Oxygen Flow Rate 5 12/11/24 19:00 12/11/24 19:15 12/11/24 19:30 Temperature Pulse Rate 79 75 76 Pulse Rate [Pulse Oximeter] Respiratory Rate 28 H 30 H 28 H Blood Pressure Blood Pressure [Left Upper Arm] Pulse Oximetry 90 90 91 Oxygen Delivery Method Oxygen Flow Rate 12/11/24 19:45 12/11/24 20:00 12/11/24 20:15 Temperature Pulse Rate 75 75 76 Pulse Rate [Pulse Oximeter] Respiratory Rate 27 H 27 H 28 H Blood Pressure Blood Pressure [Left Upper Arm] Pulse Oximetry 90 90 91 Oxygen Delivery Method Oxygen Flow Rate 12/11/24 20:30 12/11/24 20:45 12/11/24 21:00 Temperature Pulse Rate 70 74 77 Pulse Rate [Pulse Oximeter] Respiratory Rate 29 H 26 H 25 H Blood Pressure Blood Pressure [Left Upper Arm] Pulse Oximetry 91 91 92 Oxygen Delivery Method Oxygen Flow Rate This 64-year-old male is morbidly obese, he is pleasant, somewhat flat affect. Pupils equal round reactive, sclera clear, round face. Neck is extremely thick. Speaking in short phrases but does not seem dyspneic. Lung sounds are distant foot no wheezing or crackles, poor air entry. Heart sounds are distant but sound regular, cannot hear any significant murmur, normal S1-S2. Abdomen is very obese, not tender, body habitus precludes evaluation for masses organomegaly on clinical exam. Has compression stockings on his lower extremities, really surprisingly does not have any significant pitting edema but is wearing compression stockings. <Jessica Butler MD - Last Filed: 12/12/24 08:28> Vital Signs - 24 hr 12/11/24 14:42 12/11/24 14:44 12/11/24 14:45 Temperature 98.9 F Pulse Rate 86 86 Pulse Rate [Pulse Oximeter] 90 Respiratory Rate 24 25 H 25 H Blood Pressure Blood Pressure [Left Upper Arm] 125/67 Pulse Oximetry 89 91 91 Oxygen Delivery Method Room Air Oxygen Flow Rate 12/11/24 15:00 12/11/24 15:01 12/11/24 15:15 Temperature Pulse Rate 93 Pulse Rate [Pulse Oximeter] Respiratory Rate 17 17 Blood Pressure Blood Pressure [Left Upper Arm] Pulse Oximetry 90 92 Oxygen Delivery Method Oxygen Flow Rate 12/11/24 15:30 12/11/24 15:31 12/11/24 15:45 Temperature Pulse Rate 85 85 85 Pulse Rate [Pulse Oximeter] Respiratory Rate 16 17 23 Blood Pressure 133/68 Blood Pressure [Left Upper Arm] Pulse Oximetry 92 91 90 Oxygen Delivery Method Room Air Oxygen Flow Rate 12/11/24 16:00 12/11/24 16:15 12/11/24 16:30 Temperature Pulse Rate 82 Pulse Rate [Pulse Oximeter] Respiratory Rate 20 22 29 H Blood Pressure Blood Pressure [Left Upper Arm] Pulse Oximetry 89 Oxygen Delivery Method Oxygen Flow Rate 12/11/24 16:32 12/11/24 16:47 12/11/24 17:00 Temperature Pulse Rate 82 80 Pulse Rate [Pulse Oximeter] Respiratory Rate 24 15 21 Blood Pressure 138/85 Blood Pressure [Left Upper Arm] Pulse Oximetry 90 91 Oxygen Delivery Method Nasal Cannula Oxygen Flow Rate 2 12/11/24 17:15 12/11/24 17:30 12/11/24 17:45 Temperature Pulse Rate Pulse Rate [Pulse Oximeter] Respiratory Rate 29 H 30 H 25 H Blood Pressure Blood Pressure [Left Upper Arm] Pulse Oximetry Oxygen Delivery Method Oxygen Flow Rate 12/11/24 18:00 12/11/24 18:15 12/11/24 18:25 Temperature Pulse Rate 80 82 Pulse Rate [Pulse Oximeter] Respiratory Rate 30 H 29 H 30 H Blood Pressure 156/76 H Blood Pressure [Left Upper Arm] Pulse Oximetry 79 L 88 Oxygen Delivery Method Nasal Cannula Oxygen Flow Rate 2 12/11/24 18:26 12/11/24 18:30 12/11/24 18:45 Temperature Pulse Rate 85 83 79 Pulse Rate [Pulse Oximeter] Respiratory Rate 31 H 33 H 30 H Blood Pressure Blood Pressure [Left Upper Arm] Pulse Oximetry 88 88 89 Oxygen Delivery Method OxyMask Oxygen Flow Rate 5 12/11/24 19:00 12/11/24 19:15 12/11/24 19:30 Temperature Pulse Rate 79 75 76 Pulse Rate [Pulse Oximeter] Respiratory Rate 28 H 30 H 28 H Blood Pressure Blood Pressure [Left Upper Arm] Pulse Oximetry 90 90 91 Oxygen Delivery Method Oxygen Flow Rate 12/11/24 19:45 12/11/24 20:00 12/11/24 20:15 Temperature Pulse Rate 75 75 76 Pulse Rate [Pulse Oximeter] Respiratory Rate 27 H 27 H 28 H Blood Pressure Blood Pressure [Left Upper Arm] Pulse Oximetry 90 90 91 Oxygen Delivery Method Oxygen Flow Rate 12/11/24 20:30 12/11/24 20:45 12/11/24 21:00 Temperature Pulse Rate 70 74 77 Pulse Rate [Pulse Oximeter] Respiratory Rate 29 H 26 H 25 H Blood Pressure Blood Pressure [Left Upper Arm] Pulse Oximetry 91 91 92 Oxygen Delivery Method Oxygen Flow Rate <Sandra Donaldson MD - Last Filed: 12/11/24 20:07> Documenting provider has reviewed patient's vital signs: yes <Jessica Butler MD - Last Filed: 12/12/24 08:28> Course Course ED Course: This patient is complaining of chest pain for couple days now per his report but sounds like he is more concerned about shortness of breath and dyspnea on exertion. He is morbidly obese, this could be chronic respiratory failure developing, does have underlying obstructive sleep apnea. Could certainly be cardiac as he has had a reported history of coronary artery disease with an PR. will have him on cardiac monitoring and pulse oximetry. Unclear why EMS started him on oxygen but I think we should observe him off oxygen is he is not reportedly on this chronically. He is on chronic anticoagulation which would make thromboembolic disease much less likely. Congestive heart failure also has a consideration looking at this patient. He did have a multitude combined cardiopulmonary conditions all leading towards respiratory failure. <Jessica Butler MD - Last Filed: 12/12/24 08:28> Reevaluation(s) Time of Reevaluation #1: 16:20 <Jessica Butler MD - Last Filed: 12/12/24 08:28> Reevaluation #1: Went back in to talk to patient to let him know he was going to be getting a chest CT. He was curled up with his head on his chest, sonorous breathing. He did awaken easily. He is requesting another can of pop. Did review with him that I have concerns about potential infection or occult pneumonia, congestive heart failure. He is chronically anticoagulated in thus will not be repeating his chest CT PE protocol at this time. Do think could be very difficult to find that IV access in him. <Jessica Butler MD - Last Filed: 12/12/24 08:28> Reevaluation #2: Patient was signed out to me by Dr. Grant to follow-up on his chest CT scan. I reviewed the scan personally, he has scattered opacities throughout both lung pina, I am not able to differentiate whether this is infectious or fluid. His labs are all reviewed, he has a normal white blood cell count, has an elevated CRP which is not terribly unusual for him, looking at his prior records. His BNP has previously been normal and today is mildly elevated at 582. His troponin is likewise usually normal and is elevated initially at 0.06. I think it is possible this represents pneumonia, but congestive heart failure is also possible. Reviewing the radiology read, they note diffusely increased interstitial airspace and ground-glass opacities throughout bilateral lungs commensurate with edema and/or multifocal infiltrate. He is on oxygen at this point, 2 L, maintaining O2 sats at 91%. He is not chronically oxygen dependent and in fact looking through the records usually has O2 sats in the 94-97% range, so this is unusual for him. I do think he will need admission to the hospital, I am checking a 2nd troponin. If stable, I think we can keep him here at this hospital. If the troponin is markedly elevated this would suggest a more acute coronary process and then transfer might be reasonable. Repeat troponin is stable at 0.05. He is on oxygen at this point, with O2 sats in the low 90s. I did recheck a gas, this is essentially stable with mild metabolic alkalosis, pCO2 45 plan will be admission to the hospitalist service. I gave him 40 mg IV Lasix, holding off on antibiotics right now, clinical picture is more consistent with congestive heart failure than pneumonia. <Sandra Donaldson MD - Last Filed: 12/11/24 20:07> Vital Signs Vital signs: Initial Vital Signs Temperature 98.9 F 12/11/24 14:42 Temperature Source Temporal Artery Scan 12/11/24 14:42 Pulse Rate 90 12/11/24 14:42 Respiratory Rate 24 12/11/24 14:42 Blood Pressure 125/67 12/11/24 14:42 Blood Pressure Mean 86 12/11/24 14:42 Blood Pressure Position Supine 12/11/24 14:42 Pulse Oximetry 89 12/11/24 14:42 Oxygen Delivery Method Room Air 12/11/24 14:42 Vital Signs Temperature 98.9 F 12/11/24 14:42 Pulse Rate 90 12/11/24 14:42 Respiratory Rate 24 12/11/24 14:42 Blood Pressure 125/67 12/11/24 14:42 Pulse Oximetry 89 12/11/24 14:42 Oxygen Delivery Method Room Air 12/11/24 14:42 Temperature 97 F L 12/12/24 02:02 Pulse Rate 80 12/12/24 03:20 Respiratory Rate 20 12/12/24 02:02 Blood Pressure 157/88 H 12/12/24 02:02 Pulse Oximetry 95 12/12/24 03:09 Oxygen Delivery Method OxyMask 12/12/24 03:09 Oxygen Flow Rate 3 12/12/24 03:09 <Jessica Butler MD - Last Filed: 12/12/24 08:28> Initial Vital Signs Temperature 98.9 F 12/11/24 14:42 Temperature Source Temporal Artery Scan 12/11/24 14:42 Pulse Rate 90 12/11/24 14:42 Respiratory Rate 24 12/11/24 14:42 Blood Pressure 125/67 12/11/24 14:42 Blood Pressure Mean 86 12/11/24 14:42 Blood Pressure Position Supine 12/11/24 14:42 Pulse Oximetry 89 12/11/24 14:42 Oxygen Delivery Method Room Air 12/11/24 14:42 Vital Signs Temperature 98.9 F 12/11/24 14:42 Pulse Rate 90 12/11/24 14:42 Respiratory Rate 24 12/11/24 14:42 Blood Pressure 125/67 12/11/24 14:42 Pulse Oximetry 89 12/11/24 14:42 Oxygen Delivery Method Room Air 12/11/24 14:42 Temperature 97 F L 12/12/24 02:02 Pulse Rate 80 12/12/24 03:20 Respiratory Rate 20 12/12/24 02:02 Blood Pressure 157/88 H 12/12/24 02:02 Pulse Oximetry 95 12/12/24 03:09 Oxygen Delivery Method OxyMask 12/12/24 03:09 Oxygen Flow Rate 3 12/12/24 03:09 <Sandra Donaldson MD - Last Filed: 12/11/24 20:07> Medications Administered Medications: Generic Name Dose Route Start Last Admin Trade Name Freq PRN Reason Stop Dose Admin Acetaminophen 500 mg 12/11/24 22:30 12/12/24 04:15 Acetaminophen 500 Mg Tablet PO 500 mg Q6H SOILA Administration Discontinued Medications Generic Name Dose Route Start Last Admin Trade Name Freq PRN Reason Stop Dose Admin Furosemide 40 mg 12/11/24 18:38 12/11/24 18:56 Furosemide 10 Mg/Ml Inj IVP 12/11/24 18:39 40 mg ONCE ONE Administration Magnesium Sulfate/Dextrose 1 gm in 100 mls @ 100 mls/hr 07/28/25 21:40 12/12/24 00:11 Magnesium Sulf 1 G/100 Ml IVPB 12/11/24 22:39 Infused ONCE ONE Infusion Potassium Chloride 40 meq 12/11/24 23:44 12/12/24 00:10 Potassium Chloride 10 Meq Capsule Er PO 12/11/24 23:45 40 meq ONCE ONE Administration <Jessica Butler MD - Last Filed: 12/12/24 08:28> Generic Name Dose Route Start Last Admin Trade Name Freq PRN Reason Stop Dose Admin Acetaminophen 500 mg 12/11/24 22:30 12/12/24 04:15 Acetaminophen 500 Mg Tablet PO 500 mg Q6H SOILA Administration Discontinued Medications Generic Name Dose Route Start Last Admin Trade Name Freq PRN Reason Stop Dose Admin Furosemide 40 mg 12/11/24 18:38 12/11/24 18:56 Furosemide 10 Mg/Ml Inj IVP 12/11/24 18:39 40 mg ONCE ONE Administration Magnesium Sulfate/Dextrose 1 gm in 100 mls @ 100 mls/hr 12/11/24 21:40 12/12/24 00:11 Magnesium Sulf 1 G/100 Ml IVPB 12/11/24 22:39 Infused ONCE ONE Infusion Potassium Chloride 40 meq 12/11/24 23:44 12/12/24 00:10 Potassium Chloride 10 Meq Capsule Er PO 12/11/24 23:45 40 meq ONCE ONE Administration <Sandra Donaldson MD - Last Filed: 12/11/24 20:07> MDM - Chest Pain Medical Records Data Attestation: I reviewed the patient's medical records. <Jessica Butler MD - Last Filed: 12/12/24 08:28> Medical records narrative: Patient had a myocardial perfusion scan on 09/24/2015 showing no evidence of significant myocardial ischemia or infarction. Normal left ventricular ejection fraction of 65%. Last echo I find in his chart is from 10/22/2017. Impressions are normal LV size, severely increased wall thickness, normal global systolic function with an estimated EF of 70-75%. Technically limited exam. Grade 1 pattern of LV diastolic filling. Mild concentric left ventricular hypertrophy. Mildly enlarged left atrium. Right ventricular cavity size is moderately enlarged, global systolic RV function is normal. Echo contrast was administered to enhance visualization of all left ventricular segments. <Jessica Butler MD - Last Filed: 12/12/24 08:28> Lab Data Attestation: I reviewed the patient's lab results. <Jessica Butler MD - Last Filed: 12/12/24 08:28> Labs: Lab Results 12/11/24 12/11/24 12/11/24 Range/Units 15:05 18:15 19:37 WBC 6.52 (4.50-11.00) K/uL RBC 4.02 L (4.30-5.90) m/uL Hgb 11.3 L (13.5-17.5) gm/dL Hct 34.3 L (37.0-53.0) % MCV 85 (80-100) fL MCH 28 (26-34) pg MCHC 33 (32-36) gm/dL RDW Coeff of Kaylen 14.7 (11.5-15.5) % Plt Count 180 (140-440) K/uL Neut % (Auto) 64.4 (42.0-72.0) % Lymph % (Auto) 26.1 (20-44) % Grady % (Auto) 6.9 (0.0-11.0) % Eos % (Auto) 2.1 (0.0-7.0) % Baso % (Auto) 0.3 (0.0-3.0) % Neut # (Auto) 4.20 (1.7-7.0) K/uL Lymph # (Auto) 1.70 (0.90-2.90) K/uL Grady # (Auto) 0.40 (0.00-0.90) K/UL Eos # (Auto) 0.14 (0.00-0.50) K/uL Baso # (Auto) 0.02 (0.00-0.30) K/uL Abs Immat Gran (auto) 0.01 (0.00-0.30) K/uL Imm/Tot Granulo (auto) 0.2 % VBG pH 7.489 H 7.437 H (7.32-7.43) VBG pCO2 41 45 (40-50) mmHG VBG pO2 46.4 79.9 H (25-47) mmHG VBG HCO3 31 H 30 H (21-28) mmol/L Sodium 140 (135-149) mmol/L Potassium 3.4 L (3.6-5.1) mmol/L Chloride 101 (96-114) mmol/L Carbon Dioxide 31 (20-32) mmol/L Anion Gap 8 (7-15) mEq/L BUN 25 (7-30) mg/dL Creatinine 1.3 (0.5-1.5) mg/dL Estimated Creat Clear 47.44 Estimated GFR 61 ml/min Glucose 70 (60-115) mg/dL Lactate 0.9 (0.5-1.9) mmol/L Calcium 8.9 (8.4-10.6) mg/dL Magnesium 1.9 (1.5-2.6) mg/dL Total Bilirubin 0.5 (0.1-1.5) mg/dL AST 30 (12-35) U/L ALT 18 (4-50) U/L Alkaline Phosphatase 70 (40-150) U/L Troponin I 0.06 H* 0.05 H (0.01-0.04) ng/mL C-Reactive Protein 12.1 H (0.5-1.0) mg/dL NT-Pro-B Natriuret Pep 582 H (See Note) pg/mL Total Protein 7.0 (6.0-8.3) g/dL Albumin 3.9 (3.3-5.0) g/dL Procalcitonin 0.18 (<0.50) ng/mL SARS-CoV-2 (PCR) (Negative) Influenza Type A (PCR) (Negative) Influenza Type B (PCR) (Negative) RSV (PCR) (Negative) 12/11/24 Range/Units 21:00 WBC (4.50-11.00) K/uL RBC (4.30-5.90) m/uL Hgb (13.5-17.5) gm/dL Hct (37.0-53.0) % MCV (80-100) fL MCH (26-34) pg MCHC (32-36) gm/dL RDW Coeff of Kaylen (11.5-15.5) % Plt Count (140-440) K/uL Neut % (Auto) (42.0-72.0) % Lymph % (Auto) (20-44) % Grady % (Auto) (0.0-11.0) % Eos % (Auto) (0.0-7.0) % Baso % (Auto) (0.0-3.0) % Neut # (Auto) (1.7-7.0) K/uL Lymph # (Auto) (0.90-2.90) K/uL Grady # (Auto) (0.00-0.90) K/UL Eos # (Auto) (0.00-0.50) K/uL Baso # (Auto) (0.00-0.30) K/uL Abs Immat Gran (auto) (0.00-0.30) K/uL Imm/Tot Granulo (auto) % VBG pH (7.32-7.43) VBG pCO2 (40-50) mmHG VBG pO2 (25-47) mmHG VBG HCO3 (21-28) mmol/L Sodium (135-149) mmol/L Potassium (3.6-5.1) mmol/L Chloride (96-114) mmol/L Carbon Dioxide (20-32) mmol/L Anion Gap (7-15) mEq/L BUN (7-30) mg/dL Creatinine (0.5-1.5) mg/dL Estimated Creat Clear Estimated GFR ml/min Glucose (60-115) mg/dL Lactate (0.5-1.9) mmol/L Calcium (8.4-10.6) mg/dL Magnesium (1.5-2.6) mg/dL Total Bilirubin (0.1-1.5) mg/dL AST (12-35) U/L ALT (4-50) U/L Alkaline Phosphatase (40-150) U/L Troponin I (0.01-0.04) ng/mL C-Reactive Protein (0.5-1.0) mg/dL NT-Pro-B Natriuret Pep (See Note) pg/mL Total Protein (6.0-8.3) g/dL Albumin (3.3-5.0) g/dL Procalcitonin (<0.50) ng/mL SARS-CoV-2 (PCR) Negative SARS-CoV-2 (Negative) Influenza Type A (PCR) Negative PCR FLU A (Negative) Influenza Type B (PCR) Negative PCR FLU B (Negative) RSV (PCR) Negative PCR RSV (Negative) <Jessica Butler MD - Last Filed: 12/12/24 08:28> Lab Results 12/11/24 12/11/24 12/11/24 Range/Units 15:05 18:15 19:37 WBC 6.52 (4.50-11.00) K/uL RBC 4.02 L (4.30-5.90) m/uL Hgb 11.3 L (13.5-17.5) gm/dL Hct 34.3 L (37.0-53.0) % MCV 85 (80-100) fL MCH 28 (26-34) pg MCHC 33 (32-36) gm/dL RDW Coeff of Kaylen 14.7 (11.5-15.5) % Plt Count 180 (140-440) K/uL Neut % (Auto) 64.4 (42.0-72.0) % Lymph % (Auto) 26.1 (20-44) % Grady % (Auto) 6.9 (0.0-11.0) % Eos % (Auto) 2.1 (0.0-7.0) % Baso % (Auto) 0.3 (0.0-3.0) % Neut # (Auto) 4.20 (1.7-7.0) K/uL Lymph # (Auto) 1.70 (0.90-2.90) K/uL Grady # (Auto) 0.40 (0.00-0.90) K/UL Eos # (Auto) 0.14 (0.00-0.50) K/uL Baso # (Auto) 0.02 (0.00-0.30) K/uL Abs Immat Gran (auto) 0.01 (0.00-0.30) K/uL Imm/Tot Granulo (auto) 0.2 % VBG pH 7.489 H 7.437 H (7.32-7.43) VBG pCO2 41 45 (40-50) mmHG VBG pO2 46.4 79.9 H (25-47) mmHG VBG HCO3 31 H 30 H (21-28) mmol/L Sodium 140 (135-149) mmol/L Potassium 3.4 L (3.6-5.1) mmol/L Chloride 101 (96-114) mmol/L Carbon Dioxide 31 (20-32) mmol/L Anion Gap 8 (7-15) mEq/L BUN 25 (7-30) mg/dL Creatinine 1.3 (0.5-1.5) mg/dL Estimated Creat Clear 47.44 Estimated GFR 61 ml/min Glucose 70 (60-115) mg/dL Lactate 0.9 (0.5-1.9) mmol/L Calcium 8.9 (8.4-10.6) mg/dL Magnesium 1.9 (1.5-2.6) mg/dL Total Bilirubin 0.5 (0.1-1.5) mg/dL AST 30 (12-35) U/L ALT 18 (4-50) U/L Alkaline Phosphatase 70 (40-150) U/L Troponin I 0.06 H* 0.05 H (0.01-0.04) ng/mL C-Reactive Protein 12.1 H (0.5-1.0) mg/dL NT-Pro-B Natriuret Pep 582 H (See Note) pg/mL Total Protein 7.0 (6.0-8.3) g/dL Albumin 3.9 (3.3-5.0) g/dL Procalcitonin 0.18 (<0.50) ng/mL SARS-CoV-2 (PCR) (Negative) Influenza Type A (PCR) (Negative) Influenza Type B (PCR) (Negative) RSV (PCR) (Negative) 12/11/24 Range/Units 21:00 WBC (4.50-11.00) K/uL RBC (4.30-5.90) m/uL Hgb (13.5-17.5) gm/dL Hct (37.0-53.0) % MCV (80-100) fL MCH (26-34) pg MCHC (32-36) gm/dL RDW Coeff of Kaylen (11.5-15.5) % Plt Count (140-440) K/uL Neut % (Auto) (42.0-72.0) % Lymph % (Auto) (20-44) % Grady % (Auto) (0.0-11.0) % Eos % (Auto) (0.0-7.0) % Baso % (Auto) (0.0-3.0) % Neut # (Auto) (1.7-7.0) K/uL Lymph # (Auto) (0.90-2.90) K/uL Grady # (Auto) (0.00-0.90) K/UL Eos # (Auto) (0.00-0.50) K/uL Baso # (Auto) (0.00-0.30) K/uL Abs Immat Gran (auto) (0.00-0.30) K/uL Imm/Tot Granulo (auto) % VBG pH (7.32-7.43) VBG pCO2 (40-50) mmHG VBG pO2 (25-47) mmHG VBG HCO3 (21-28) mmol/L Sodium (135-149) mmol/L Potassium (3.6-5.1) mmol/L Chloride (96-114) mmol/L Carbon Dioxide (20-32) mmol/L Anion Gap (7-15) mEq/L BUN (7-30) mg/dL Creatinine (0.5-1.5) mg/dL Estimated Creat Clear Estimated GFR ml/min Glucose (60-115) mg/dL Lactate (0.5-1.9) mmol/L Calcium (8.4-10.6) mg/dL Magnesium (1.5-2.6) mg/dL Total Bilirubin (0.1-1.5) mg/dL AST (12-35) U/L ALT (4-50) U/L Alkaline Phosphatase (40-150) U/L Troponin I (0.01-0.04) ng/mL C-Reactive Protein (0.5-1.0) mg/dL NT-Pro-B Natriuret Pep (See Note) pg/mL Total Protein (6.0-8.3) g/dL Albumin (3.3-5.0) g/dL Procalcitonin (<0.50) ng/mL SARS-CoV-2 (PCR) Negative SARS-CoV-2 (Negative) Influenza Type A (PCR) Negative PCR FLU A (Negative) Influenza Type B (PCR) Negative PCR FLU B (Negative) RSV (PCR) Negative PCR RSV (Negative) <Sandra Donaldson MD - Last Filed: 12/11/24 20:07> Imaging Data Chest x-ray: Attestation: I have reviewed the pertinent imaging results. <Jessica Butler MD - Last Filed: 12/12/24 08:28> Radiologist's impression: Patient: SKYLAR LEAHY Facility:?[facility] Patient ID:?[id number] Site Patient ID:?[id number]. Site :?1960 Study:?XRay-Chest PORTABLE-12/11/2024 3:48:19 PM Ordering Physician:George Lopez Final Report: Indication: CHEST PAIN, SOB Technique: AP view of the chest. Comparison: 11/16/2024, 11/10/2024. Findings: Slightly suboptimal examination secondary to habitus. Low lung volumes. Normal cardiomediastinal silhouette. Moderate interstitial prominence and mild patchy airspace opacities. No pleural effusion or visualized pneumothorax. Impression: Moderate interstitial prominence and mild patchy airspace opacities may be exaggerated secondary to low lung volumes or represent pulmonary edema. Dictated by Matthew Bearden MD @ 12/11/2024 4:04:08 PM (Electronic Signature) <Jessica Butler MD - Last Filed: 12/12/24 08:28> CT scan - chest: Attestation: I have reviewed the pertinent imaging results. <Sandra Donaldson MD - Last Filed: 12/11/24 20:07> Radiologist's impression: [place] [address] Diagnostic Imaging Report Patient: Skylar Leahy MR#: [id number] : 1960 Acct:[id number] Loc: ED Service Date: 12/11/[address]: Ordering Physician: Jessica Butler M.D. Date of Service: 12/11/24 Procedure(s): CT chest wo con Accession Number(s): [id number] cc: Provider,Not a Local; Jessica Butler M.D.~ For Patients: As a result of the Cures Act, medical imaging exams and procedure reports are released immediately into your electronic medical record. You may view this report before your referring provider. If you have questions, please contact your health care provider. Indication: Chest pain, shortness of breath and elevated CRP Technique: Volumetric multidetector CT images of the chest were obtained without the administration of IV contrast. Comparison: CT chest November 16, 2024 Findings: The thoracic inlet and thyroid gland are unremarkable. The thoracic aorta is nonaneurysmal. There are enlarged, reactive mediastinal lymph nodes similar to prior. Marked central bronchial thickening with minimal mucoid impaction of the lower lobe bronchi. There are diffusely increased interstitial airspace and ground-glass opacities within the bilateral laci thoraces commensurate with likely developing edema and/or multifocal infiltrates. Minimal right basilar effusion. No pneumothorax. There is no evidence of pulmonary mass or suspicious pulmonary nodule. Cystic changes of the kidneys are appreciated. Otherwise the upper abdomen is grossly unremarkable. The thoracic vertebral body heights are grossly maintained with flowing anterior osteophytosis. No significant spondylolisthesis or displaced fracture. Impression: 1. Diffusely increased interstitial, airspace and ground-glass opacities throughout the bilateral hemithoraces commensurate with edema and/or multifocal infiltrates. Please note that all CT scans at this facility use dose modulation, iterative reconstruction, and/or weight-based dosing when appropriate to reduce radiation dose to as low as reasonably achievable. Dictated by Ezekiel Saini MD @ 12/11/2024 6:03:26 PM <Sandra Donaldson MD - Last Filed: 12/11/24 20:07> ECG Data Attestation: I personally reviewed and interpreted this ECG as follows: (Sinus rhythm with first-degree AV block, 86 beats per minute. No definitive ischemic change or infarct noted. Some artifact in lead 3. ) <Jessica Butler MD - Last Filed: 12/12/24 08:28> ECG interpretation date: 12/11/24 <Jessica Butler MD - Last Filed: 12/12/24 08:28> ECG interpretation time: 14:55 <Jessica Butler MD - Last Filed: 12/12/24 08:28> Prior ECG tracings: available for review <Jessica Butler MD - Last Filed: 12/12/24 08:28> Discharge Plan Discharge Clinical Impression: Shortness of breath, Congestive heart failure, TASHI on CPAP, Obesity <Jessica Butler MD - Last Filed: 12/12/24 08:28> Patient Disposition: Admitted As Inpatient <Jessica Butler MD - Last Filed: 12/12/24 08:28> Condition: Stable <Jessica Butler MD - Last Filed: 12/12/24 08:28> Procedures ABG Interpretation ABG Results: 12/11/24 12/11/24 15:05 19:37 VBG pH 7.489 H 7.437 H VBG pCO2 41 45 VBG pO2 46.4 79.9 H VBG HCO3 31 H 30 H <Jessica Butler MD - Last Filed: 12/12/24 08:28> 12/11/24 12/11/24 15:05 19:37 VBG pH 7.489 H 7.437 H VBG pCO2 41 45 VBG pO2 46.4 79.9 H VBG HCO3 31 H 30 H <Sandra Donaldson MD - Last Filed: 12/11/24 20:07>
--- OUTSIDE RECORDS SUMMARY | 2024-12-11 14:48 | XMS_ITS | Clinical Summary ---
Author Organization [facility] Address [facility] [place] [address] Care Team Providers Care Hospital Medical Assistant Name Role Phone Alan Lopez MD Unavailable [phone] Pcp, No Primary Care Provider Unavailabl e Jessa Webster MD Unavailable [phone] Allergies Active Allergy Reactions Criticality Noted [...] Take 1 tablet by mouth. 0 11/06/19 Active medication order composerIndication s:TASHI (obstructive sleep apnea) CPAP- set pressure at 17 cm/H2O New CPAP supplies: Humidifier Chamber x1, mask with cushion x1, Tubing (heated if desired) x1, Headgear x1, Disposable filters (reusable and disposable) X1; 1 unit 6 02/11/20 Active CPAPIndications:OS A (obstructive sleep apnea) CPAP machine for home use at pressure: 15 cm/h2O , Heated humidifier x 1, Humidifier chamber x 1, 1 unit 11 05/19/19 Active nitroglycerin (NITROSTAT) 0.4 mg sublingual tabletIndications: Chest pain in adult Place 1 tablet under the tongue every 5 minutes if needed for Chest Pain. 1 Bottle 08/03/19 Active Insulin Syringes, Disposable, 1 mLIndications:Othe r [...] 300 Each 3 11/03/19 Active medication order composerIndication s:Chronic edema Compression stockings, size large, full calf, level 20/30 mmhg 2 Package 11/04/19 Active compr.stocking,kne e,long,large (COMP STOCKING,KNEE,LONG ,LARGE)Indications :Insulin dependent diabetes mellitus,Diabetic polyneuropathy associated with type 2 diabetes mellitus (HC),Chronic edema JOBST #[id number] LRG FULL CALF KNEE BLACK 20-30 COMPRESSION 2 Package 11/27/19 Active lancets (TRUEPLUS LANCETS) 30 gauge miscIndications:Ty [...] extended release tablet 24 HourIndications: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 Pt uses 10 x diakly 300 Each 3 09/05/19 25 Active Humulin R 500 unit/mL injectionIndicatio ns:Type 2 diabetes mellitus with diabetic nephropathy, with long-term current use of insulin (HC) Inject SC Humulin U500 insulin 140 with breakfast, 140 units with lunch and 160 units with supper, slowly titrate to TDD 400units 24 mL 3 11/11/19 25 Active pioglitazone 30 mg tabletIndications: Type 2 diabetes mellitus with diabetic nephropathy, with long-term current use of insulin (HC) Take 1 Tablet (30 mg) by mouth once daily. 90 Tablet 2 11/11/19 Active Active Problems Problem Noted Date Diagnosed [...] at 10 am and no showed. RN Cardiac Rn, Juanita Yoo, notified and she will [...] No, referral made to Advance Care Plan Glass Vial Bending Conveyor Feeder. Patient has identified Specific Treatment Preferences: No Sophia Méndez RN .................... 07/06/2011 2:30 PM] Specific limits to treatment preferences NOT identified: ASSUME FULL TREATMENT. Assessment & Plan (05/25/2012 12:51 PM MEDICAL DOSIMETRIST): Advance Care Planning: Disease-specific Session Leonid Leahy is a [facility] patient. His PCP is Leandra Limon at [facility]. Advance care planning discussions were completed with Leonid. He identified his sister, Brittany Suggs, as his healthcare agent. Brittany was not present for ACP session. Understanding of Illness and Disease [place]: Leonid identifies his medical condition as what [...] to live well: Daily visit to local [employer] for a pop and to visit and catch up in the news with locals. Leonid obed with serious challenges in his life: Support of his sister, only a phone call away. 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 Leonid identifies the following fears and [...] and primary care provider. Hard Choices for [place] [employer] booklet was sent to Leonid and [...] is and stabilizing. Is followed by Clinic Manager Of Maintenance for needed services. Questions identified for his primary care provider: none Documents addressed during this advance care planning session: Health Care Directive completed and scanned into medical record. Statement of Treatment Preferences for advanced illness completed and scanned into the medical record. Recommendations/Plan: Leonid to review Advance Care Plan with Leonid's healthcare agent. Adjuster Arbitrator will be contacting Leonid's [facility] to explain services rendered, Leonid would benefit from: Home Care and/or Hospice when / if appropriate. County services involved, supports coordination of medical asistance. Care Management- [...] 2:27 PM Sophia Méndez RN RN Clinic Manager Of Maintenance - [facility] [phone] Vitamin D deficiency 01/06/2011 011 Neuropathy 09/25/2010 [...] Team Description 11/10/2024 8:50 AM CDT Telemedicine [facility] [address] [place] [id number] Jessa Webster MD Telehealth (No vitals taken); Diabetes 11/10/2024 Telephone [facility] [address] [address] Jessa Webster MD Other from Last 3 Months Immunizations Immunization Administration [...] on file Legal Sex Male 5:24 AM MEDICAL DOSIMETRIST Gender Identity Not on file Sexual Orientation Not on file Obstetrics History Last Filed Vital Signs Vital Sign Reading Time Taken Comments Blood Pressure 130/50 05/26/2024 4:05 PM MEDICAL DOSIMETRIST Pulse 71 05/26/2024 4:05 PM MEDICAL DOSIMETRIST Temperature 36 C (96.8 F) 08/19/2022 1:41 PM CDT Respiratory Rate 16 08/19/2022 2:23 PM CDT Oxygen Saturation 92% 05/26/2024 4:05 PM MEDICAL DOSIMETRIST Inhaled Oxygen Concentration - - Weight 177.8 kg (392 lb) 05/26/2024 4:05 PM MEDICAL DOSIMETRIST Height 167.6 cm (5' 6) 07/14/2022 6:10 PM MEDICAL DOSIMETRIST Body Mass Index 63.27 07/14/2022 6:10 PM MEDICAL DOSIMETRIST Plan of Treatment Upcoming Encounters Date Type Department Care Team (Late st Contact Info) Description 02/12/2025 9:40 AM CDT Telemedicine [facility] [address] [facility] [address] [place] [address] [place] [address] [place], [place] [id number] Health Maintenance Due Date Last Done Comments [...] 06/02/2023, 04/03/2022, Additional history exists Influenza Vaccine (#1) 2025 9, 02/21/2018, 02/17/2017, Additional history exists Hepatitis B series for 19+ Completed 02/16, 10/12/2013, 03/14/2013 Goals Goal Patient Goal Type Associated Problems Recent Progress Patient-Stated? Author DIABETES-PATIENT WILL have a A1c at or below 7. Plan: eat prescribed diet, do blood sugar checks as prescribed, Take insulin as prescribed. Follow up with appointments as needed. . Diet On track( 012 12:28 PM CDT) No Kay García DIABETES-KEEPS DAILY LOG OF GLUCOSE CHECKS :Plan: to fax the readings to Dr Benjamin as directed Diet On track( 12:28 PM CDT) [employer] Implanted Type Area [employer] Consultant Device Identifier Shelf Expiration Date Model / Serial / Lot Iol [place] +20 [employer] Zcb00 - [id number] Implanted:Qty: 1 on 07/15/2022 by Tanner Fuentes MD at [facility] Left: Eye [employer] 06/24/2025 ZCB00 20.0 / [id number] / Iol [place] +20 [employer] Zcb00 - [id number] Implanted:Qty: 1 on 08/19/2022 by Tanner Fuentes MD at [facility] Right: Eye [employer] 06/24/2025 ZCB00 20.0 / [id number] / Procedures Procedure Name Priority Date/Time Associated Diagnosis Comments LIPID PANEL Routine 03/13/2019 2:31 PM CDT Essential hypertriglyceridemia from Last 3 Months or Most Recently Relevant to Health Maintenance Results * (ABNORMAL) LIPID PANEL (03/13/2019 2:31 PM CDT) CHOLESTEROL,TOTAL 193 100 - 199 mg/dL 03/13/2019 9:25 PM CDT [facility] TRIGLYCERIDES 715(H) <150 mg/dL 03/13/2019 9:25 PM CDT [facility] HDL CHOLESTEROL 29(L) >40 mg/dL 9 9:25 PM CDT [facility] NON-HDL CHOLESTEROL 164(H) <145 mg/dl 03/13/2019 9:25 PM CDT [facility] CHOL/HDL RATIO 6.66(H) <4.50 03/13/2019 9:25 PM CDT [facility] LDL CHOLESTEROL 9 9:25 PM CDT [facility] Comment:Invalid LDL when Tri g >400. PROVIDER ORDERED STATUS RANDOM 03/13/2019 9:25 PM CDT [facility] Blood BLOOD SPECIMEN / Unknown Venipuncture / Unknown 03/13/2019 2:31 PM CDT 03/13/2019 2:31 PM CDT us Suellen Sosa MD CHEMISTRY Final Resul t [facility] [address] [place] [address], [place] from Last 3 Months or Most Recently Relevant to Health Maintenance Insurance MEDICAID MEDICARE [place] ONLY MEDICARE PART B HB ONLY MEDICARE PART A HB ONLY Advance Directives Documents on File Type Date Recorded Patient Associate Software Developer Expl anation POLST 09/26/2014 3:45 PM AH JUAN ELD, 09/24/2014 Healthcare Directive 06/02/2012 3:51 PM AC [...] 9:30 PM 03/19/2009 6:17 PM Care Teams Hospital Medical Assistant Relationship Specialty Start Date End Date Pcp, No . PCP - General 07/15/22 Alan Lopez MD Internal Medicine Internal Medicine 11/20/10 [place] [address] [place] [address] Endocrinology Endocrinology 05/26/24
--- NOTE | 2024-12-11 14:53 | CRLHL7_ITS ---
For Patients: As a result of the Century Cures Act, medical imaging exams and procedure reports are released immediately into your electronic medical record. You may view this report before your referring provider. If you have questions, please contact your health care provider. Indication: CHEST PAIN, SOB Technique: AP view of the chest. Comparison: 11/16/2024, 11/10/2024. Findings: Slightly suboptimal examination secondary to habitus. Low lung volumes. Normal cardiomediastinal silhouette. Moderate interstitial prominence and mild patchy airspace opacities. No pleural effusion or visualized pneumothorax. Impression: Moderate interstitial prominence and mild patchy airspace opacities may be exaggerated secondary to low lung volumes or represent pulmonary edema. Dictated by Matthew Bearden MD @ 12/11/2024 4:04:08 PM (Electronically Signed)
[2024-12-11 15:13] LABS: HCO3 VBG 31 mmol/L (21-28); Hematocrit 34.3 % (37.0-53.0); Hemoglobin* 11.3 gm/dL (13.5-17.5); Immature Granulocytes Abs Auto 0.01 K/uL (0.00-0.30); Immature Granulocytes Pct Auto 0.2 %; Lactate* 0.9 mmol/L (0.5-1.9); Lymphocytes Absolute Auto 1.70 K/uL (0.90-2.90); Mean Corpuscular HGB Conc 33 gm/dL (32-36); Mean Corpuscular Hemoglobin 28 pg (26-34); Mean Corpuscular Volume 85 fL (80-100); PCO2 VBG 41 mmHG (40-50); PO2 VBG 46.4 mmHG (25-47); RDW Coefficient of Variation % 14.7 % (11.5-15.5); Red Blood Count 4.02 m/uL (4.30-5.90); Slide Review Reflex No; White Blood Count* 6.52 K/uL (4.50-11.00); pH VBG 7.489 (7.32-7.43)
[2024-12-11 15:32] LABS: Chloride* 101 mmol/L (96-114)
[2024-12-11 15:33] LABS: Albumin* 3.9 g/dL (3.3-5.0); Potassium* 3.4 mmol/L (3.6-5.1); Sodium* 140 mmol/L (135-149)
[2024-12-11 15:35] LABS: Alanine Aminotransferase* 18 U/L (4-50); Aspartate Amino Transferase* 30 U/L (12-35); Blood Urea Nitrogen* 25 mg/dL (7-30); Creatinine* 1.3 mg/dL (0.5-1.5); Est. Creatinine Clearance* 47.44; Estimated Glomerular Filt Rate 61 ml/min
[2024-12-11 15:36] LABS: Alkaline Phosphatase* 70 U/L (40-150); Anion Gap 8 mEq/L (7-15); Bilirubin Total* 0.5 mg/dL (0.1-1.5); Calcium* 8.9 mg/dL (8.4-10.6); Carbon Dioxide* 31 mmol/L (20-32); Glucose* 70 mg/dL (60-115); Total Protein* 7.0 g/dL (6.0-8.3)
--- OUTSIDE RECORDS SUMMARY | 2024-12-11 15:46 | XMS_ITS | CCD ---
Author Name Cecilio Durham Address [address] [place] [address] Phone Organization [facility] Phone Care Team Providers Care Blacksmith Apprentice Name Role Phone Harrison Durham Primary Care Provider Leona vailable Unavailable Chronic Care Management Unavaila ble Summary Purpose DataExchange Insurance Providers Payer name Policy type / Coverage type Covered libertarian ID Effective Begin Date Effective End Date Medicare [place] Medicare Part B [id number] Unknown Unknown Medicaid [place] Medicare Part B [id number] Unknown Unknown Family history Sister Brittany Suggs [...] on file 07/11/[address]: 731309015 Never smoker 01/16 Sexually Active? Unknown No [...] Unknown Snf 09/03/[address]: 362229556 No Alcohol Consum ption 09/02/2020 Allergies, Adverse Reactions, Alerts Substance Reaction Codes Entered Date Inactivated Date Status * NO KNOWN FOOD ALLERGIES Unknown 07/13/2023 No Inactive Date Active LISINOPRIL RxNorm: 18129 02/12/2020 No Inactive Da te Active Metformin [...] 703.8 10/10/2024 Active Pulmonary nodule SNOMED CT: 110962479 ICD-10: R91.1 ICD-9: 793.11 10/10/2024 Active Recurrent major depressive disorder, in partial remission ICD-10: F33.41 ICD-9: 296.35 10/10/2024 Active Stage 2 chronic kidney disea se due to type 2 diabetes mellitus ICD-10: E11.22 ICD-9: 250.40 10/10/2024 Active Pressure ulcer of left calf, unstageable ICD-10: L89.890 ICD-9: 707.09 10/10/2024 Resolved Body mass index [BMI] 60.0-69.9, adult SNOMED CT: 973921704 ICD-10: Z68.44 ICD-9: V85.44 08/08/2024 Active Mixed incontinence SNOMED CT: 55165435 ICD-10: N39.46 ICD-9: 788.33 08/08/2024 Active Diabetic [...] 701.9 09/07/2023 Resolved Coronary artery disease involving [place] coronary artery of [...] immunization ICD-10: Z23 ICD-9: V03.89 02/10/2022 Resolved 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 ICD-10: Z79.4 02/10/2022 [...] Instructions Culturelle 10 billion cell capsule RxNorm: 542425 Take 1 Capsule(s) Oral QD 11/08/19 25 026 Active Culturelle 10 billion cell capsule RxNorm: 525776 Take 1 Capsule(s) Oral QD 11/08/19 25 025 Inactive hydrocodone 5 mg-acetaminophen 325 mg tablet RxNorm: 425125 Take 1 Tablet(s) Oral Q4H every four hours as needed for pain PRN for severe acute dental pain 10/21/19 25 025 Inactive penicillin V potassium 500 mg tablet RxNorm: 084957 Take 1 Tablet(s) Oral QID Take until dental appointment per ER recommendation 10/21/19 25 025 Inactive hydrocodone 5 mg-acetaminophen 325 mg tablet RxNorm: 617193 Take 1 Tablet(s) Oral Q4H every four hours as needed for pain PRN for severe acute dental pain 10/21/19 25 025 Inactive penicillin V potassium 500 mg tablet RxNorm: 518098 Take 1 Tablet(s) Oral QID Take until dental appointment per ER recommendation 10/21/19 25 025 Inactive potassium chloride ER 20 mEq tablet,extended release RxNorm: 104764 Take 2 Tablet(s) Oral TID (dx: hypokalemia) 09/14/19 25 026 Active potassium chloride ER 20 mEq tablet,extended release RxNorm: 439678 Take 2 Tablet(s) Oral TID (dx: hypokalemia) 09/14/19 25 025 Inactive loperamide 2 mg tablet RxNorm: 863248 Take 2 Tablet(s) Oral UD as directed [...] Date Active senna 8.6 mg tablet RxNorm: 191367 Take 1 Tablet(s) Oral QD as needed and 1 tab BID prn 09/06/19 No Stop Date Active cyclobenzaprine 10 mg tablet RxNorm: 719998 Take 1 Tablet(s) Oral QHS every night at bedtime as needed 09/06/19 No Stop Date Active loperamide 2 mg tablet RxNorm: 779336 Take 2 Tablet(s) Oral UD as directed as needed 2 tabs after first loose stool then 1 tab after each subsequent stool PRN Do not exceed 4 doses in 24 hours. Do not administer until after 3 loose stools. 09/06/19 026 Active pioglitazone 15 mg tablet RxNorm: 674754 Take 1 Tablet(s) Oral QD 09/06/19 No Stop Date Active loperamide 2 mg tablet RxNorm: 530411 Take 2 Tablet(s) Oral UD as directed as needed 2 tabs after first loose stool then 1 tab after each subsequent stool PRN Do not exceed 4 doses in 24 hours. Do not administer until after 3 loose stools. 09/06/19 025 Inactive pregabalin 100 mg capsule RxNorm: 341952 1 CAPSULE BY MOUTH EVERY MORNING (DX: NEUROPATHY) 08/23/19 Active FACILITY IS REQUESTING REFILL. PRIOR RX HAS BEEN EXHAUSTED. THANK YOU. pregabalin 150 mg capsule RxNorm: 327748 1 CAPSULE BY MOUTH AT BEDTIME (DX: NEUROPATHY) 08/21/19 025 Active FACILITY IS REQUESTING A REFILL OF THIS MEDICATION, THANK YOU! senna 8.6 mg tablet RxNorm: 918953 Take 1 Tablet(s) Oral QD as needed for constipation on day 2 of no bowel movement 08/09/19 025 Inactive Miralax 17 gram/dose oral powder RxNorm: 846982 Administer 17 Gram(s) Oral QD as needed for constipation on day 3 of no bowel movement 08/09/19 25 025 Inactive senna 8.6 mg tablet RxNorm: 942627 Take 1 Tablet(s) Oral QD as needed for constipation on day 2 of no bowel movement 08/09/19 25 025 Inactive Miralax 17 gram/dose oral powder RxNorm: 906695 Administer 17 Gram(s) Oral QD as needed for constipation on day 3 of no bowel movement 08/09/19 25 025 Inactive pregabalin 100 mg capsule RxNorm: 486350 Take 1 Capsule(s) Oral QAM every morning [...] (Concentrated) Insulin 500 unit/mL subcutaneous soln RxNorm: 447862 Inject 100 Unit(s) Subcutaneous AC before meals Three times daily before meals. 07/24/19 25 025 Inactive ammonium lactate 12 % topical cream RxNorm: 121192 Apply 1 Application Topical BID 07/20/19 25 No Stop Date Active ezetimibe 10 mg tablet RxNorm: 010907 Take 1 Tablet(s) Oral QD 07/18/19 25 No Stop Date Active senna 8.6 mg tablet RxNorm: 817509 Take 1 Tablet(s) Oral QD 07/18/19 25 025 Inactive metoprolol succinate ER 200 mg tablet,extended release 24 hr RxNorm: 976045 Take 1 Tablet(s) Oral QD 06/19/19 25 No Stop Date Active pantoprazole 40 mg tablet,delayed release RxNorm: 935876 Take 1 Tablet(s) Oral QAM every morning 06/19/19 25 No Stop Date Active hydralazine 50 mg tablet RxNorm: 599117 Take 1 Tablet(s) Oral QID 06/19/19 25 No Stop Date Active carbamazepine 200 mg tablet RxNorm: 570911 Take 1 Tablet(s) Oral BID 06/19/19 25 No Stop Date Active amlodipine 10 mg tablet RxNorm: 741192 Take 1 Tablet(s) Oral QD 06/19/19 25 No Stop Date Active Eliquis 5 mg tablet RxNorm: 0210160 Take 1 Tablet(s) Oral BID 06/19/19 25 No Stop Date Active pen needle, diabetic 30 gauge x 3/16 RxNorm: Use 1 6 times per day w/insulin 06/14/19 25 026 Active pen needle, diabetic 30 gauge x 3/16 RxNorm: Use 1 needle 6 times per day w/insulin 06/14/19 25 025 Inactive nystatin 100,000 unit/gram topical powder RxNorm: 169493 Apply 1 Application Topical BID as needed abdominal/breast/ groin folds 05/24/19 25 026 Active pregabalin 100 mg capsule RxNorm: 677323 Take 1 Capsule(s) Oral QAM every morning 05/22/19 025 Inactive nystatin 100,000 unit/gram topical powder RxNorm: 238454 Apply 1 Application Topical BID as needed abdominal/breast/ groin folds 04/11/20 24 024 Inactive chlorthalidone 25 mg tablet RxNorm: 655146 Take 1 Tablet(s) Oral QAM every morning 04/06/20 No Stop Date Active pregabalin 150 mg capsule RxNorm: 828151 Take 1 Capsule(s) Oral QHS every night at bedtime 03/31/20 024 Inactive Vascepa 1 gram capsule RxNorm: 3130811 Take 2 Capsule(s) Oral BID 03/30/20 025 Active rosuvastatin 40 mg tablet RxNorm: 511725 1 TAB ORALLY EVERY EVENING (DX:CORONARY ARTERY DISEASE) 03/28/20 No Stop Date Active venlafaxine ER 75 mg capsule,extended release 24 hr RxNorm: 715812 3 CAPS (225MG) ORALLY DAILY (DX: MOOD DISORDER) 03/28/20 No Stop Date Active pregabalin 100 mg capsule RxNorm: 027412 Take 1 Capsule(s) Oral QAM every morning 03/20/20 024 Inactive cholecalciferol (vitamin D3) 1,250 mcg (50,000 unit) capsule RxNorm: 966895 Take 1 Capsule(s) Oral QW once a [...] Insulin 100 unit/mL (3 mL) subcutaneous RxNorm: 3744307 Inject 40 Unit(s) Subcutaneous BID 03/07/20 025 Inactive Please dispense one month supply. Humulin R U-500 (Concentrated) Insulin 500 unit/mL subcutaneous soln RxNorm: 412426 Inject 100 Unit(s) Subcutaneous AC before meals [...] PRN) to be use with new Accu [place] meter 03/04/20 Inactive ok to substitute with any covered alternative test strip FreeStyle Ch[place] 2 Sensor kit RxNorm: Use UD as directed 03/02/20 Inactive Pen Needle 30 gauge x 09/29 RxNorm: Pen(s) Use 1 needle as directed TID 03/02/20 Inactive nystatin 100,000 unit/gram topical powder RxNorm: 426185 Apply 1 Application Topical BID as needed [...] (Concentrated) Insulin 500 unit/mL subcutaneous soln RxNorm: 819188 Inject 100 Unit(s) Subcutaneous TID 02/17/20 24 024 Inactive Humulin R U-500 (Concentrated) Insulin 500 unit/mL subcutaneous soln RxNorm: 010964 Inject 100 Unit(s) Subcutaneous TID 02/10/20 24 024 Inactive Basaglar KwikPen U-100 Insulin 100 unit/mL (3 mL) subcutaneous RxNorm: 7006131 Inject 30 Unit(s) Subcutaneous BID 02/10/20 24 024 Inactive Please dispense one month supply. pregabalin 100 mg capsule RxNorm: 390135 Take 1 Capsule(s) Oral QAM every morning 02/07/20 24 024 Inactive isosorbide mononitrate ER 60 mg tablet,extended release 24 hr RxNorm: 768834 Take 1 Tablet(s) Oral QD 02/01/20 24 025 Active aripiprazole 15 mg tablet RxNorm: 902005 Take 1/2 Tablet(s) Oral QD 02/01/20 24 025 Active torsemide 20 mg tablet RxNorm: 673124 1 TAB ORALLY DAILY (DX: EDEMA) 01/27/20 24 No Stop Date Active potassium chloride ER 20 mEq tablet,extended release(part/cryst) RxNorm: 7821414 2 TABS (40MEQ) ORALLY TWICE DAILY (DX: HYPOKALEMIA) 01/27/20 24 025 Inactive cephalexin 500 mg capsule RxNorm: 433040 Take 1 Capsule(s) Oral QID 12/17/19 24 024 Inactive cephalexin 500 mg capsule RxNorm: 302077 Take 1 Capsule(s) Oral QID 12/17/19 24 08/02/2 024 Inactive acetaminophen 500 mg tablet RxNorm: 946962 (MAX APAP:4GM/24HR) Take 1 Tablet(s) Oral TID [...] %-0.3 % drops in a dropperette RxNorm: 525685 Apply 1-2 Drop(s) Both eyes BID as needed 09/28/19 24 Inactive erythromycin 5 mg/gram (0.5 %) eye ointment RxNorm: 939138 Apply 1 Application Both eyes QHS every night at bedtime Instill ~1 cm ribbon into affected eye 09/28/19 24 Inactive Artificial Tears (PF) 0.1 %-0.3 % drops in a dropperette RxNorm: 284136 Apply 1-2 Drop(s) Both eyes BID as needed 09/28/19 24 Inactive erythromycin 5 mg/gram (0.5 %) eye ointment RxNorm: 331200 Apply 1 Application Both eyes QHS every night at bedtime Instill ~1 cm ribbon into affected eye 09/28/19 24 Inactive acetaminophen 500 mg tablet RxNorm: 840571 (MAX APAP:4GM/24HR) Take 1 Tablet(s) Oral TID as needed for pain 09/24/19 24 Inactive carvedilol 25 mg tablet RxNorm: 079456 Take 1 Tablet(s) Oral QD 09/08/19 24 No Stop Date Active pregabalin 100 mg capsule RxNorm: 104970 Take 1 Capsule(s) Oral QAM every morning 09/07/19 24 024 Inactive bisacodyl 10 mg rectal suppository RxNorm: 892160 Insert 1 Suppository Rectal QD as needed 07/13/19 24 No Stop Date Active ketoconazole 2 % shampoo RxNorm: 697833 Apply 1 Application Topical UD as directed 07/13/19 24 No Stop Date Active Ozempic 1 mg/dose (4 mg/3 mL) subcutaneous pen injector RxNorm: 2741804 Inject 1 Milligram(s) Subcutaneous QW once a week 07/13/19 24 No Stop Date Active Guaifenesin AC 10 mg-100 mg/5 mL oral liquid RxNorm: 300837 Take 10 Milliliter(s) Oral Q4H every four hours as needed 07/13/19 24 No Stop Date Active hydrocortisone 2.5 % topical cream RxNorm: 965940 Apply 1 Application Topical BID as needed 07/13/19 24 No Stop Date Active rosuvastatin 40 mg tablet RxNorm: 978542 Take 1 Tablet(s) Oral QPM every evening 07/13/19 24 024 Inactive ezetimibe 10 mg tablet RxNorm: 027890 Take 1 Tablet(s) Oral QD 07/13/19 24 025 Inactive polyethylene glycol 3350 17 gram/dose oral powder RxNorm: 819153 Take 17 Gram(s) Oral BID as needed mix in 4-8ox water 07/13/19 24 025 Inactive aripiprazole 15 mg tablet RxNorm: 582385 Take 1/2 Tablet(s) Oral QD 07/13/19 24 024 Inactive isosorbide mononitrate ER 60 mg tablet,extended release 24 hr RxNorm: 437198 Take 1 Tablet(s) Oral QD 07/13/19 24 024 Inactive ammonium lactate 12 % topical cream RxNorm: 103164 Apply 1 Application Topical BID 07/13/19 24 025 Inactive rosuvastatin 20 mg sprinkle capsule RxNorm: 7246557 Take 1 Capsule(s) Oral QD 07/13/19 24 025 Inactive Vascepa 1 gram capsule RxNorm: 7691138 Take 2 Capsule(s) Oral BID 07/13/19 24 024 Inactive venlafaxine ER 75 mg capsule,extended release 24 hr RxNorm: 969102 Take 3 Capsule(s) Oral QD 07/13/19 24 024 Inactive Basaglar KwikPen U-100 Insulin 100 unit/mL (3 mL) subcutaneous RxNorm: 6661527 Inject 30U SubQ twice daily 07/07/19 24 024 Inactive Please dispense one month supply. Basaglar KwikPen U-100 Insulin 100 unit/mL (3 mL) subcutaneous RxNorm: 7317955 Inject 30U SubQ twice daily 07/07/19 24 024 Inactive Please dispense one month supply. pregabalin 150 mg capsule RxNorm: 906660 Take 1 Capsule(s) Oral QHS every night at bedtime 07/05/19 24 024 Inactive pregabalin 150 mg capsule RxNorm: 656342 Take 1 Capsule(s) Oral QHS every night at bedtime 07/05/19 24 024 Inactive polyethylene glycol 3350 17 gram/dose oral powder RxNorm: 595722 Take 1 Packet Oral QD as needed (1 packet = 17g) mix with 4-8oz of liquid 06/15/19 24 024 Inactive bisacodyl 10 mg rectal suppository RxNorm: 662217 Insert one suppository per rectum once daily as needed for constipation 06/15/19 24 024 Inactive bisacodyl 10 mg rectal suppository RxNorm: 522529 Insert one suppository per rectum once daily as needed for constipation 06/15/19 24 024 Inactive pregabalin 100 mg capsule RxNorm: 183219 Take 1 Capsule(s) Oral QAM every morning 04/27/20 23 024 Inactive Levemir FlexPen 100 unit/mL (3 mL) solution subcutaneous insulin pen RxNorm: 147515 Inject 30 Unit(s) Subcutaneous BID 04/27/20 23 024 Inactive rosuvastatin 40 mg tablet RxNorm: 801134 Take 1 Tablet(s) Oral QPM every evening 04/16/20 23 024 Inactive D/C rosuvastatin 20mg venlafaxine ER 75 mg capsule,extended release 24 hr RxNorm: 291196 Take 3 Capsule(s) Oral QD 04/14/20 023 Inactive pregabalin 100 mg capsule RxNorm: 676767 Take 1 Capsule(s) Oral QAM every morning [...] strip clotrimazole 1 % topical cream RxNorm: 990092 Take apply topically to abdominal folds twice daily for 14 days 03/12/20 024 Inactive Ozempic 1 mg/dose (4 mg/3 mL) subcutaneous pen injector RxNorm: 7037373 Inject 1 Milligram(s) Subcutaneous QW once a week 03/11/20 23 023 Inactive rosuvastatin 20 mg tablet RxNorm: 349294 Take 1 Tablet(s) Oral QD 02/26/20 23 023 Inactive d/c pravastatin 80mg Ozempic 1 mg/dose (4 mg/3 mL) subcutaneous pen injector RxNorm: 0656280 Inject 1 Milligram(s) Subcutaneous QW once a week 02/20/20 23 023 Inactive pregabalin 150 mg capsule RxNorm: 095899 Take 1 Capsule(s) Oral HS at bed time 02/19/20 23 023 Inactive pregabalin 100 mg capsule RxNorm: 013254 Take 1 Capsule(s) Oral QAM every morning 02/18/20 23 023 Inactive venlafaxine ER 75 mg capsule,extended release 24 hr RxNorm: 309030 Take 3 Capsule(s) Oral QD 02/04/20 23 023 Inactive FreeStyle Chema 2 Sensor kit RxNorm: use as directed 02/04/20 023 Inactive FreeStyle Chema 2 Sensor kit RxNorm: use as directed 02/04/20 024 Inactive fluconazole 150 mg tablet RxNorm: 471793 Take 1 Tablet(s) Oral on day 3 and on day 6 02/03/20 024 Inactive venlafaxine ER 150 mg capsule,extended release 24 hr RxNorm: 406065 Take 1 Capsule(s) Oral QD 02/03/20 023 Inactive chlorthalidone 25 mg tablet RxNorm: 523226 Take 1 Tablet(s) Oral QAM every morning 02/03/20 024 Inactive acetaminophen 500 mg tablet RxNorm: 238261 1 TABLET ORALLY 3 TIMES DAILY (MAX APAP:4GM/24HR) 12/15/19 023 Inactive potassium chloride ER 20 mEq tablet,extended release RxNorm: 734609 Take 1 Tablet(s) Oral BID 12/09/19 024 Inactive d/c 20mEq once daily (sent from hospital) clotrimazole 1 % topical cream RxNorm: 327499 apply 1g topically to top of feet and in between toes BID 12/09/19 23 025 Inactive nystatin 100,000 unit/gram topical powder RxNorm: 156561 APPLY TO AFFECTED AREAS TOPICALLY 2 TIMES DAILY 11/21/19 23 023 Inactive Nystop 100,000 unit/gram topical powder RxNorm: 443410 Apply to abd folds, under breasts and L side of groin Topical BID x 14 days, then BID PRN 11/20/19 23 023 Inactive dx: yeast dermatitis [place] Ultra Strength 4 %-30 %-10 % topical cream RxNorm: 118324 Apply 1 Gram(s) Topical QID PRN to feet and legs for neuropathic pain 11/11/19 23 024 Inactive clotrimazole 1 % topical cream RxNorm: 913182 Apply 1/2 Gram(s) Topical BID Apply to affected areas of groin, periarea, and abdominal topically 2 times daily 11/10/19 23 023 Inactive hydrocortisone 2.5 % topical cream RxNorm: 043255 Apply 1/2 Gram(s) Topical BID as needed 11/10/19 024 Inactive Levemir FlexPen 100 unit/mL (3 mL) solution subcutaneous insulin pen RxNorm: 399102 Inject 30 Unit(s) Subcutaneous BID 10/07/19 23 023 Inactive Humulin R U-500 (Concentrated) Insulin 500 unit/mL subcutaneous soln RxNorm: 734573 Inject 100 Unit(s) Subcutaneous TID 10/07/19 024 Inactive Ozempic 0.25 mg or 0.5 mg (2 mg/3 mL) subcutaneous pen injector RxNorm: 4408348 Inject 1/2 Milligram(s) Subcutaneous QW once a week 10/07/19 024 Inactive aripiprazole 15 mg tablet RxNorm: 678225 1/2 TAB (7.5MG) ORALLY DAILY (DX:MAJOR DEPRESSIVE DISORDER) 09/23/19 023 Inactive Accu-Chek Guide test strips RxNorm: Use 1 Test Strip QID 09/15/19 23 023 Inactive ok to substitute with any covered alternative test strip Lancets,Thin 28 gauge RxNorm: Use 1 as directed QID 09/15/19 23 023 Inactive torsemide 20 mg tablet RxNorm: 340678 Take 1 Tablet(s) Oral BID 09/09/19 024 Inactive d/c once daily dosing carvedilol 25 mg tablet RxNorm: 573152 Take 1 Tablet(s) Oral QD 08/25/19 024 Inactive pregabalin 150 mg capsule RxNorm: 290438 1 Capsule(s) Oral HS at bed time 08/18/19 023 Inactive pregabalin 100 mg capsule RxNorm: 951557 1 Capsule(s) Oral QAM every morning 08/18/19 023 Inactive carvedilol 25 mg tablet RxNorm: 678765 1 Tablet(s) Oral QD 07/28/19 23 023 Inactive lisinopril 20 mg tablet RxNorm: 974008 Give 1 Tablet(s) Oral QD 07/28/19 23 023 Inactive Lyrica 150 mg capsule RxNorm: 292066 Take 1 Capsule(s) Oral QHS every night at bedtime 07/19/19 23 023 Inactive d/c 100mg dose Diflucan 150 mg tablet RxNorm: 395372 Take 1 Tablet(s) Oral QD repeat on day 3 and 6 07/19/19 23 023 Inactive pregabalin 100 mg capsule RxNorm: 792985 Take 1 Capsule(s) Oral QAM every morning 07/19/19 023 Inactive gatifloxacin 0.5 % eye drops RxNorm: 372227 Instill 1 Drop(s) as directed TID Instill 1 drop in to affected eye(s) starting 1 day prior to surgery and continue until gone (do not exceed 4 weeks). 07/13/19 023 Inactive carvedilol 25 mg tablet RxNorm: 564684 2 Tablet(s) Oral BID 07/13/19 023 Inactive Humulin R Regular U-100 Insulin 100 unit/mL injection solution RxNorm: 032601 85 Unit(s) Injection TID 07/13/19 023 Inactive ketorolac 0.5 % eye drops RxNorm: 212850 Instill 1 Drop(s) as directed QID Instill 1 drop into affected eye(s) 4 times daily starting 1 day prior to surgery and continue until gone (do not exceed 4 weeks). 07/13/19 023 Inactive Diflucan 150 mg tablet RxNorm: 202129 Take 1 Tablet(s) Oral QD repeat on day 3 and 6 06/30/19 023 Inactive Accu-Chek Guide test strips RxNorm: Use 1 Test Strip QID Use 1 test strip to monitor blood glucose 4 times daily and as needed. Dx:E11.42. 06/23/19 023 Inactive ok to substitute with any covered alternative test strip dextromethorphan-gu aifenesin 10 mg-100 mg/5 mL oral liquid RxNorm: 535530 Take 10 Milliliter(s) Oral every 4 hours as needed for cough 06/19/19 023 Inactive dextromethorphan-gu aifenesin 10 mg-100 mg/5 mL oral liquid RxNorm: 607209 Take 10 Milliliter(s) Oral every 4 hours as needed for cough 06/19/19 023 Inactive Lyrica 150 mg capsule RxNorm: 720048 Take 1 Capsule(s) Oral QHS every night at bedtime 06/18/19 023 Inactive d/c 100mg dose aripiprazole 15 mg tablet RxNorm: 210069 /2 TAB (7.5MG) ORALLY DAILY (DX:MAJOR DEPRESSIVE DISORDER) 06/05/19 23 023 Inactive pregabalin 100 mg capsule RxNorm: 385103 1 Capsule(s) Oral QAM every morning 06/02/19 023 Inactive Banophen 50 mg capsule RxNorm: 4571898 Take 1 Capsule(s) Oral Q6H every 6 hours as needed 05/19/19 23 No Stop Date Active Novolog Flexpen U-100 Insulin aspart 100 unit/mL (3 mL) subcutaneous RxNorm: 4025450 Inject 10 Unit(s) Subcutaneous QHS every night at bedtime with nighttime snack 04/08/20 022 Inactive Novolog Flexpen U-100 Insulin aspart 100 unit/mL (3 mL) subcutaneous RxNorm: 4144189 Inject 42 Unit(s) Subcutaneous TID in addition to sliding scale 04/08/20 022 Inactive d/c 36u albuterol sulfate HFA 90 mcg/actuation aerosol inhaler RxNorm: 3190034 Take 2 Puff(s) Inhalation Q4H every four hours as needed as needed for SOB, cough, or wheezing 04/07/20 22 030 Active Banophen 50 mg capsule RxNorm: 1592698 Take 1 Capsule(s) Oral Q6H every 6 hours as needed 04/06/20 023 Inactive diphenhydramine 50 mg tablet RxNorm: 0142287 Take 1 Tablet(s) Oral Q6H every 6 hours as needed 04/06/20 22 022 Inactive diphenhydramine 50 mg tablet RxNorm: 9091347 1 Tablet(s) Oral Q6H every 6 hours as needed 04/06/20 22 022 Inactive Abilify 15 mg tablet RxNorm: 644950 1/2 Tablet(s) Oral QD 03/10/20 22 023 Inactive Shingrix (PF) 50 mcg/0.5 mL intramuscular suspension, kit RxNorm: 3180078 Administer 1/2 Milliliter(s) Intramuscular QD one time shingrix step 2 ( step 1 given 11/04/21) WITH needle - Nursing please administer upon arrival and once administered post a bridge message with date of administration, color artist, expiration date, and lot# so we can update [facility] 02/18/20 22 022 Inactive dispense with needle Shingrix (PF) 50 mcg/0.5 mL intramuscular suspension, kit RxNorm: 3390871 Administer 1/2 Milliliter(s) Intramuscular QD one time shingrix step 2 ( step 1 given 11/04/21) WITH needle - Nursing please administer upon arrival and once administered post a bridge message with date of administration, color artist, expiration date, and lot# so we can update [facility] 02/18/20 22 022 Inactive dispense with needle Lyrica 100 mg capsule RxNorm: 274970 Take 1 Capsule(s) Oral QAM every morning 01/08/20 22 022 Inactive d/c 50mg dose acetaminophen 500 mg tablet RxNorm: 630480 Take 1 Tablet(s) Oral TID 01/08/20 22 022 Inactive d/c PRN order Lyrica 150 mg capsule RxNorm: 206023 Take 1 Capsule(s) Oral QHS every night at bedtime 01/08/20 22 023 Inactive d/c 100mg dose polyethylene glycol 3350 17 gram/dose oral powder RxNorm: 006869 Take 17=1 capful Gram(s) Oral QD mix with 4-8oz of liquid 01/08/20 22 025 Inactive take this in addition to BID prn order Abilify 5 mg tablet RxNorm: 374426 Take 1 Tablet(s) Oral QD take 1 tab po QD #30 refill 5 dx: MDD 12/12/19 22 022 Inactive Abilify 5 mg tablet RxNorm: 279591 Take 1 Tablet(s) Oral QD take 1 tab po QD #30 refill 5 dx: MDD 12/12/19 22 022 Inactive Novolog Flexpen U-100 Insulin aspart 100 unit/mL (3 mL) subcutaneous RxNorm: 8160033 Inject 42 Unit(s) Subcutaneous TID in addition to sliding scale 12/10/19 22 022 Inactive d/c 36u chlorthalidone 25 mg tablet RxNorm: 821609 Take 1 Tablet(s) Oral QAM every morning 12/10/19 22 023 Inactive pregabalin 50 mg capsule RxNorm: 305495 Take 1 Capsule(s) Oral QAM every morning 11/12/19 22 022 Inactive tetanus-diphtheria toxoids-Td 2 Lf unit-2 Lf unit/0.5 mL IM suspension RxNorm: 139 Take 0.5 Miscellaneous Intramuscular 11/12/19 22 022 Inactive need tdap - nursing to administer upon arrival pregabalin 50 mg capsule RxNorm: 864592 Take 1 Capsule(s) Oral QAM every morning 10/16/19 22 022 Inactive pregabalin 50 mg capsule RxNorm: 565589 Take 1 Capsule(s) Oral QAM every morning 10/16/19 22 022 Inactive pregabalin 50 mg capsule RxNorm: 353806 1 Capsule(s) Oral QAM every morning 10/15/19 22 022 Inactive Shingrix (PF) 50 mcg/0.5 mL intramuscular suspension, kit RxNorm: 5526354 Administer 1/2 Milliliter(s) Intramuscular one time Nursing please administer upon arrival and once administered post a bridge message with date of administration, color artist, expiration date, and lot# so we can update [facility]. 10/09/19 22 022 Inactive shingrix step 1 Shingrix (PF) 50 mcg/0.5 mL intramuscular suspension, kit RxNorm: 5299323 Administer 1/2 Milliliter(s) Intramuscular one time Nursing please administer upon arrival and once administered post a bridge message with date of administration, color artist, expiration date, and lot# so we [...] aspart 100 unit/mL (3 mL) subcutaneous RxNorm: 1272152 Inject 10 Unit(s) Subcutaneous QHS every night at bedtime with nighttime snack 10/08/19 Inactive Shingrix (PF) 50 mcg/0.5 mL intramuscular suspension, kit RxNorm: 9810894 ADMINISTER 2-DOSE SERIES PER CDC GUIDELINES 10/08/19 22 Active Shingrix (PF) 50 mcg/0.5 mL intramuscular suspension, kit RxNorm: 0682642 ADMINISTER 2-DOSE SERIES PER CDC GUIDELINES 10/08/19 22 Inactive Novolog Flexpen U-100 Insulin aspart 100 unit/mL (3 mL) subcutaneous RxNorm: 8051059 Inject 36 Unit(s) Subcutaneous TID in addition to sliding scale 10/08/19 Inactive cholecalciferol (vitamin D3) 1,250 mcg (50,000 unit) capsule RxNorm: 199603 Take 1 Capsule(s) Oral QW once a week 10/08/19 Inactive Novofine Autocover 30 gauge x 1/3 needle RxNorm: Use 1 Miscellaneous UD as directed Use 1 needle as directed to administer insulin 5 times a day Dx:E11.42. 10/03/19 Inactive ok to substitute with any covered alternative pen needle benzoyl peroxide 10 % topical cleanser RxNorm: 691032 Apply 1 Application Topical QD apply to face, wash rinse and dry once daily (may change to QOD if drying) 08/19/19 22 022 Inactive (%covered by insurance) #60ml refill 11 dx: acne benzoyl peroxide 10 % topical cleanser RxNorm: 182139 Apply 1 Application Topical QD apply to face, wash rinse and dry once daily (may change to QOD if drying) 08/19/19 22 022 Inactive (%covered by insurance) #60ml refill 11 dx: acne benzoyl peroxide 10 % topical cleanser RxNorm: 401769 Apply 1 Application Topical QD apply to face, wash rinse and dry once daily (may change to QOD if drying) 08/19/19 22 022 Inactive (%covered by insurance) #60ml refill 11 dx: acne Lyrica 50 mg capsule RxNorm: 903140 Take 1 Capsule(s) Oral QAM every morning Take 1 capsule by mouth once daily 08/19/19 22 022 Inactive benzoyl peroxide 10 % topical cleanser RxNorm: 920343 Apply 1 Application Topical QD apply to face, wash rinse and dry once daily (may change to QOD if drying) 08/19/19 22 022 Inactive (%covered by insurance) #60ml refill 11 dx: acne Lyrica 100 mg capsule RxNorm: 170611 Take 1 Capsule(s) Oral QHS every night at bedtime Take 1 capsule by mouth once daily at bedtime 08/19/19 22 022 Inactive Lyrica 100 mg capsule RxNorm: 794231 Take 1 Capsule(s) Oral QHS every night at bedtime Take 1 capsule by mouth once daily at bedtime 08/16/19 22 Inactive Lyrica 50 mg capsule RxNorm: 257470 Take 1 Capsule(s) Oral QAM every morning Take 1 capsule by mouth once daily 08/16/19 22 Inactive Levemir FlexTouch U-100 Insulin 100 unit/mL (3 mL) subcutaneous pen RxNorm: 870029 Inject 86 Unit(s) Subcutaneous BID 08/05/19 22 022 Inactive d/c 83units BID Lyrica 100 mg capsule RxNorm: 783601 Take 1 Capsule(s) Oral QHS every night at bedtime Take 1 capsule by mouth once daily at bedtime 07/14/19 22 022 Inactive Lyrica 50 mg capsule RxNorm: 483626 Take 1 Capsule(s) Oral QAM every morning Take 1 capsule by mouth once daily 07/14/19 22 022 Inactive Levemir FlexTouch U-100 Insulin 100 unit/mL (3 mL) subcutaneous pen RxNorm: 383601 Inject 83 Unit(s) Subcutaneous BID 07/08/19 22 [...] test strip hydralazine 50 mg tablet RxNorm: 401005 Take 1 Tablet(s) Oral QID 12 022 Inactive venlafaxine ER 225 mg tablet,extended release 24 hr RxNorm: 840634 Take 1 Tablet(s) Oral QD 05/05/20 Inactive venlafaxine ER 225 mg tablet,extended release 24 hr RxNorm: 473463 Take 1 Tablet(s) Oral QD 05/05/20 022 Inactive isosorbide mononitrate ER 30 mg tablet,extended release 24 hr RxNorm: 924134 Take 1 Tablet(s) Oral QD 05/05/20 024 Inactive hydralazine 50 mg tablet RxNorm: 214248 Take 1 Tablet(s) Oral QID 05/05/20 Inactive aspirin 81 mg tablet,delayed release RxNorm: 901757 Take 1 Tablet(s) Oral QD 03/31/20 022 Inactive Vitamin D2 1,250 mcg (50,000 unit) capsule RxNorm: 1090158 Take 1 Capsule(s) Oral QW once a week x 12 weeks 03/31/20 022 Inactive Vitamin D2 1,250 mcg (50,000 unit) capsule RxNorm: 1674862 Take 1 Capsule(s) Oral QW once a week 03/31/20 Inactive Zetia 10 mg tablet RxNorm: 895594 Take 1 Tablet(s) Oral QD 03/31/20 024 Inactive Zetia 10 mg tablet RxNorm: 023436 Take 1 Tablet(s) Oral QD 03/31/20 021 Inactive hydralazine 25 mg tablet RxNorm: 823048 Take 1 Tablet(s) Oral QID 03/31/20 021 Inactive hydralazine 25 mg tablet RxNorm: 535435 Take 1 Tablet(s) Oral QID 03/31/20 021 Inactive hydralazine 10 mg tablet RxNorm: 729657 Take 1 Tablet(s) Oral QID 03/03/20 021 Inactive cephalexin 500 mg tablet RxNorm: 572651 Take 1 Tablet(s) Oral QID 02/27/20 021 Inactive cephalexin 500 mg tablet RxNorm: 233978 Take 1 Tablet(s) Oral QID 02/27/20 21 021 Inactive lisinopril 40 mg tablet RxNorm: 614526 Take 1 Tablet(s) Oral QD 02/11/20 023 Inactive Eliquis 5 mg tablet RxNorm: 6458608 Take 1 Tablet(s) Oral BID 01/05/20 21 025 Inactive Eliquis 5 mg tablet RxNorm: 1756740 Take 2 Tablet(s) Oral QD 01/01/20 21 021 Inactive Lyrica 50 mg capsule RxNorm: 653418 Take 1 Capsule(s) Oral QAM every morning 12/24/19 021 Inactive Lyrica 100 mg capsule RxNorm: 616965 Take 1 Capsule(s) Oral QHS every night at bedtime 12/24/19 021 Inactive clotrimazole 1 % topical cream RxNorm: 978378 Apply to right foot and toes Topical BID 12/04/19 21 023 Inactive metoprolol succinate ER 200 mg tablet,extended release 24 hr RxNorm: 997388 Take 1 Tablet(s) Oral QD 12/04/19 023 Inactive ciprofloxacin 500 mg tablet RxNorm: 532848 Take 1 Tablet(s) Oral QD 11/30/19 021 Inactive DX ofloxacin otic drops Accu-Chek Guide test strips RxNorm: USE 1 TO CHECK GLUCOSE 4 TIMES DAILY AND NEEDED 11/15/19 21 023 Inactive Blood Glucose Test strips RxNorm: Use 1 Test Strip QID at PRN 11/05/19 21 023 Inactive E11.42 lisinopril 30 mg tablet RxNorm: 378304 Take 1 Tablet(s) Oral QD 10/30/19 021 Inactive lisinopril 20 mg tablet RxNorm: 189168 Take 1 Tablet(s) Oral QD 10/23/19 21 021 Inactive lisinopril 20 mg tablet RxNorm: 534531 Take 1 Tablet(s) Oral QD 10/23/19 21 021 Inactive lisinopril 10 mg tablet RxNorm: 240043 Take 1 Tablet(s) Oral QD 10/02/19 21 021 Inactive icosapent ethyl 1 gram capsule RxNorm: 2194616 Take 2 Capsule(s) (2 gm) Oral BID with meals 09/12/19 21 024 Inactive Okay to dispense one 2gm tab if you have that available. icosapent ethyl 1 gram capsule RxNorm: 8789094 Take 2 Capsule(s) Oral BID 09/12/19 21 021 Inactive Okay to dispense one 2gm tab if you have that available. amlodipine 10 mg tablet RxNorm: 592416 Take 1 Tablet(s) Oral QD 09/04/19 21 021 Inactive aspirin 81 mg tablet,delayed release RxNorm: 853895 Take 1 Tablet(s) Oral QD 09/04/19 21 021 Inactive Levemir FlexTouch U-100 Insulin 100 unit/mL (3 mL) subcutaneous pen RxNorm: 872010 Inject 150 Unit(s) Subcutaneous BID 09/04/19 21 022 Inactive venlafaxine ER 150 mg tablet,extended release 24 hr RxNorm: 623808 Take 1 Tablet(s) Oral QD 09/04/19 21 021 Inactive clotrimazole-betame thasone 1 %-0.05 % topical cream RxNorm: 212244 Apply to rash on red area on left abdomen/chest Topical BID 08/10/19 21 021 Inactive amlodipine 5 mg tablet RxNorm: 078946 Take 1 Tablet(s) Oral QD 07/31/19 21 021 Inactive cephalexin 500 mg tablet RxNorm: 546229 Take 1 Tablet(s) Oral BID BID - Twice Daily 07/31/19 21 021 Inactive Start 08/01/20 pantoprazole 40 mg tablet,delayed release RxNorm: 808242 Take 1 Tablet(s) Oral QAM every morning 07/08/19 21 025 Inactive clopidogrel 75 mg tablet RxNorm: 126287 Take 1 Tablet(s) Oral QD 07/08/19 21 021 Inactive Blood Glucose Test strips RxNorm: Use 1 Test Strip QID at PRN 07/08/19 21 021 Inactive E11.42 senna 8.6 mg tablet RxNorm: 665189 Take 1 Tablet(s) Oral QD 07/08/19 21 025 Inactive Novolog Flexpen U-100 Insulin aspart 100 unit/mL (3 mL) subcutaneous RxNorm: 9392497 Administer per sliding scale Milliliter(s) Subcutaneous TID 151-200: 10 u; 201-250: 20 u; 251-300: 30 u; 301-350: 40 u; 351-400: 50 u. 07/08/19 21 022 Inactive lisinopril 5 mg tablet RxNorm: 728050 Take 1 Tablet(s) Oral QD 07/08/19 021 Inactive Novolog Flexpen U-100 Insulin aspart 100 unit/mL (3 mL) subcutaneous RxNorm: 2284588 Inject 85 Unit(s) Subcutaneous TID 07/08/19 022 Inactive pravastatin 80 mg tablet RxNorm: 426297 Take 1 Tablet(s) Oral QHS every night at bedtime 07/08/19 023 Inactive clotrimazole 1 % topical cream RxNorm: 118313 Apply to bilateral groin areas Topical BID 07/08/19 022 Inactive metoprolol succinate ER 200 mg tablet,extended release 24 hr RxNorm: 088469 Take 1 Tablet(s) Oral QD 07/08/19 021 Inactive Vitamin D3 25 mcg (1,000 unit) tablet RxNorm: 611606 Take 1 Tablet(s) Oral QD 07/08/19 021 Inactive isosorbide dinitrate 30 mg tablet RxNorm: 940256 Take 1 Tablet(s) Oral QD 07/08/19 21 021 Inactive carbamazepine 200 mg tablet RxNorm: 828508 Take 1 Tablet(s) Oral BID 07/08/19 21 025 Inactive Levemir FlexTouch U-100 Insulin 100 unit/mL (3 mL) subcutaneous pen RxNorm: 967345 Inject 140 Unit(s) Subcutaneous BID 07/08/19 21 021 Inactive torsemide 20 mg tablet RxNorm: 903123 Take 1 Tablet(s) Oral QD 07/08/19 21 023 Inactive venlafaxine 75 mg tablet RxNorm: 515501 Take 1 Tablet(s) Oral QD 07/08/19 21 021 Inactive acetaminophen 500 mg tablet RxNorm: 709298 Take 1 Tablet(s) Oral TID as needed for headache 06/18/19 21 021 Inactive acetaminophen 500 mg tablet RxNorm: 679151 Take 1 Tablet(s) Oral TID as needed for headache 06/18/19 21 021 Inactive Lyrica 100 mg capsule RxNorm: 566889 Take 1 Capsule(s) Oral QHS every night at bedtime 06/11/19 21 021 Inactive Lyrica 50 mg capsule RxNorm: 598526 Take 1 Capsule(s) Oral QAM every morning 06/10/19 21 021 Inactive hydrocortisone 2.5 % topical cream RxNorm: 689660 Apply to bilateral groin creases Topical BID 05/15/20 20 021 Inactive clotrimazole 1 % topical cream RxNorm: 355729 Apply to bilateral groin areas Topical BID 05/15/20 20 021 Inactive Lyrica 50 mg capsule RxNorm: 304953 Take 1 Capsule(s) Oral QAM every morning 05/14/20 20 020 Inactive Lyrica 100 mg capsule RxNorm: 722573 Take 1 Capsule(s) Oral QHS every night [...] Inactive Nystop 100,000 unit/gram topical powder RxNorm: 330805 Apply to abd folds, under breasts and L side of groin Topical BID x 14 days, then BID PRN 04/08/20 20 Inactive dx: yeast dermatitis Lyrica 100 mg capsule RxNorm: 472911 Take 1 Capsule(s) Oral QHS every night at bedtime 03/13/20 20 Inactive Lyrica 50 mg capsule RxNorm: 241237 Take 1 Capsule(s) Oral QAM every morning 03/13/20 20 Inactive ketoconazole 2 % shampoo RxNorm: 223394 Apply Topical two times a week with showers 03/11/20 20 Inactive cholecalciferol (vitamin D3) 50 mcg (2,000 unit) tablet RxNorm: 517880 Take 1 Tablet(s) Oral QD 03/11/20 20 021 Inactive Zetia 10 mg tablet RxNorm: 576924 Take 1 Tablet(s) Oral QD 03/07/20 20 021 Inactive Zetia 10 mg tablet RxNorm: 325780 Take 1 Tablet(s) Oral QD 03/07/20 20 Inactive Lyrica 50 mg capsule RxNorm: 232037 Take 1 Capsule(s) Oral QAM every morning 02/15/20 20 Inactive Lyrica 100 mg capsule RxNorm: 138016 Take 1 Capsule(s) Oral QHS every night at bedtime 02/15/20 20 Inactive Lyrica 100 mg capsule RxNorm: 528690 Take 1 Capsule(s) Oral QHS every night at bedtime 02/15/20 20 Inactive Lyrica 50 mg capsule RxNorm: 584518 Take 1 Capsule(s) Oral QAM every morning 02/15/20 20 Inactive venlafaxine ER 75 mg capsule,extended release 24 hr RxNorm: 383284 Take 3 Capsule(s) Oral QD 06/12/19 023 Inactive polyethylene glycol 3350 17 gram/dose oral powder RxNorm: 382984 Take 17=1 capful Gram(s) Oral BID as needed mix with 4-8oz of liquid 06/12/19 22 024 Inactive icosapent ethyl 1 gram capsule RxNorm: 9400176 Take 2 Capsule(s) (2 gm) Oral BID with meals 10/07/19 023 Inactive Okay to dispense one 2gm tab if you have that available. Levemir FlexTouch U-100 Insulin 100 unit/mL (3 mL) subcutaneous pen RxNorm: 770658 Inject 80 Unit(s) Subcutaneous BID 07/14/19 023 Inactive metoprolol succinate ER 200 mg tablet,extended release 24 hr RxNorm: 140234 Take 1 Tablet(s) Oral QD 08/12/19 025 Inactive loperamide 2 mg capsule RxNorm: 240205 Take 1 Capsule(s) Oral QID as needed 09/06/19 025 Inactive hydralazine 50 mg tablet RxNorm: 286217 Take 1 Tablet(s) Oral QID 08/12/19 025 Inactive Soft Touch Lancets RxNorm: miscellaneous 03/04/20 24 025 Inactive Novolog Flexpen U-100 Insulin aspart 100 unit/mL (3 mL) subcutaneous RxNorm: 0097789 Insert 30 Unit(s) Subcutaneous TID with meals [...] Date Patient Education: Patient Medication Summary Completed 11/30/2024 Referral: [facility] WPtel: [address] [place], [place] [id number] Referral No Records Received 10/20/2024 Appointment: Brian Munson WPtel: [address] [place], [place] [id number] [place] F/U 08/08/2024 Appointment: Brian Munson WPtel: [address] [place], [place] [id number] [place] F/U 07/11/2024 Referral: [facility]/Endocrinology WPtel: [phone] [place] Referral No Records Received 07/10/2024 Appointment: Brian Munsontel: [address] [facility] 300 [id number] [place] AWV 02/08/2024 Appointment: Brian Munson WPtel: [address] [facility] 300 [id number] [place] F/U 01/11/2024 Appointment: Sandra Clark WPtel: [address] [place], [place] [phone] Telehealth Psych Follow Up 12/09 Appointment: Tapan Shirley WPtel: [phone] TCM 10/26/2022 Referral: [facility] WPtel: [address] , [address] [id number] [place] Referral Records Received 09/21/2022 Appointment: Tapan Shirley WPtel: [address] [place], [place] [id number] [place] F/U 08/11/2022 Appointment: Tapan Shirley WPtel: [address] [place], [place] [id number] [place] F/U 07/14/2022 Appointment: Tapan Shirley WPtel: [address] [place], [place] [id number] [place] F/U 02/10/2022 Referral: [facility] WPtel: [address] [id number] [place] Referral Completed 05/28/2021 Referral: General Cardiology [...] Sister Jyotsna involved in his care cell# [phone] Guardian: Giulia (tapan met in person 09/01/21), [...] Jessa Webster MD at [facility]. Start Pioglitazone 15 mg QD. Stop Basaglar insulin. Increase Ozempic 2 mg once wkly. Continue Humalin R U-500 100 units with meals TID. FOLLOW UP 2 MONTHS. If BG >400 add 50 units to next scheduled dose of Humalin R U 500 insulin 06/12/2024
[2024-12-11 15:49] LABS: NT Pro B Type NatriureticPept* 582 pg/mL (See Note)
--- NOTE | 2024-12-11 16:21 | CRLHL7_ITS ---
For Patients: As a result of the Century Cures Act, medical imaging exams and procedure reports are released immediately into your electronic medical record. You may view this report before your referring provider. If you have questions, please contact your health care provider. Indication: Chest pain, shortness of breath and elevated CRP Technique: Volumetric multidetector CT images of the chest were obtained without the administration of IV contrast. Comparison: CT chest November 16, 2024 Findings: The thoracic inlet and thyroid gland are unremarkable. The thoracic aorta is nonaneurysmal. There are enlarged, reactive mediastinal lymph nodes similar to prior. Marked central bronchial thickening with minimal mucoid impaction of the lower lobe bronchi. There are diffusely increased interstitial airspace and ground-glass opacities within the bilateral laci thoraces commensurate with likely developing edema and/or multifocal infiltrates. Minimal right basilar effusion. No pneumothorax. There is no evidence of pulmonary mass or suspicious pulmonary nodule. Cystic changes of the kidneys are appreciated. Otherwise the upper abdomen is grossly unremarkable. The thoracic vertebral body heights are grossly maintained with flowing anterior osteophytosis. No significant spondylolisthesis or displaced fracture. Impression: 1. Diffusely increased interstitial, airspace and ground-glass opacities throughout the bilateral hemithoraces commensurate with edema and/or multifocal infiltrates. Please note that all CT scans at this facility use dose modulation, iterative reconstruction, and/or weight-based dosing when appropriate to reduce radiation dose to as low as reasonably achievable. Dictated by Ezekiel Saini MD @ 12/11/2024 6:03:26 PM (Electronically Signed)
[2024-12-11] MEDS: FUROSEMIDE 10 MG/ML inj 40 MG IVP (18:56)
[2024-12-11 19:13] LABS: Procalcitonin* 0.18 ng/mL (<0.50)
[2024-12-11 19:49] LABS: HCO3 VBG 30 mmol/L (21-28); PCO2 VBG 45 mmHG (40-50); PO2 VBG 79.9 mmHG (25-47); pH VBG 7.437 (7.32-7.43)
[2024-12-11 21:42] LABS: PCR FLU A Negative PCR FLU A (Negative); PCR FLU B Negative PCR FLU B (Negative); PCR RSV Negative PCR RSV (Negative); SARS PCR* Negative SARS-CoV-2 (Negative)
[2024-12-11 21:46] LABS: HCO3 VBG 30 mmol/L (21-28); PCO2 VBG 45 mmHG (40-50); PO2 VBG 88.4 mmHG (25-47); pH VBG 7.443 (7.32-7.43)
[2024-12-11] MEDS: ACETAMINOPHEN 500 MG TABLET PO (23:01)
[2024-12-11] MEDS: MAGNESIUM SULF 1 G/100 ML 1 GM/100 ML PIGGYBACK IVPB (23:04)
--- NOTE | 2024-12-11 23:06 | PM.IMHP1 ---
Assessment and Plan Assessment and plan (1) Acute on chronic diastolic heart failure: Problem comment: Acute hypoxic respiratory failure likely due primarily to heart failure which is most likely heart failure with preserved ejection fraction. Echocardiogram is quite limited due to body habitus. Optimize heart failure management with aggressive diuresis and optimizing chronic heart failure medicines. Added spironolactone and empagliflozin and titrated up torsemide dose. Stop chlorthalidone. Stop metoprolol and increased carvedilol. Status: Acute (2) Chronic hypoxic respiratory failure: Problem comment: Likely has some chronic hypoxic respiratory failure with possible obesity hypoventilation syndrome. Would benefit from a sleep study and CPAP. During hospital stay went from BiPAP to nasal cannula oxygen to room air with no oxygen requirement. Mild CO2 retention presumably secondary to sleep apnea Status: Acute (3) TASHI on CPAP: Problem comment: - does not use his CPAP. Likely would benefit greatly from use of CPAP at home. Suspected to have obesity hypoventilation syndrome. Will need repeat sleep study to get a new CPAP. Status: Acute (4) Morbid obesity: Problem comment: BMI 69. Suspected to have obesity hypoventilation syndrome Status: Acute (5) Coronary artery disease: Problem comment: - STEMI in December 2019, treated at [facility] with stenting of RCA, followed next day by stenting of distal LAD and diagonal branch. Mildly elevated troponins likely reflect stress ischemia from heart failure rather than acute coronary syndrome. Two years ago was hospitalized with a Lexiscan showing a mild area of ischemia. Medical management. Status: Acute (6) Insulin dependent diabetes mellitus: Problem comment: -patient does not know his home medications -ordered Lantus 30 units q.h.s. and high insulin SSI and accuchecks. To resume home medications on discharge. Status: Acute (7) Recurrent deep vein thrombosis (DVT): Problem comment: - anticoagulated on Eliquis Status: Acute (8) Learning disability: Problem comment: Significant deficits in understanding his medical history but appears to be able to make straightforward decisions about his medical care. Status: Acute (9) Candidal dermatitis: Status: Acute (10) Epilepsy: Problem comment: - on carbamazepine. no evidence of recurrent seizure Status: Acute Plan 1. Reviewed impression, plan, recommendations with patient 2. Called his court-appointed guardian, Ana Rigo, . No answer. Left voicemail. 3. Answered his questions to his satisfaction. 4. He is agreeable with above stated plans and recommendations Total Time Spent Total Time Spent: 70 minutes Hospitalist- H&P: HPI History of Present Illness Date Seen: 12/11/24 Chief complaint: dyspnea and associated chest pain Narrative: Leonid Leahy is a 64 year old man who resides in a long-term and has a court appointed guardian, Danielle Sierra, , presents to the emergency department this evening for assessment of increasing dyspnea and chest pain at times in association with dyspnea. He is not a accurate historian. As best as he can tell us he has had increasing dyspnea for the past 2 days with intermittent episodes of chest discomfort. Ordinarily sleeps on his bed and more recently in his recliner chair. Has severe obstructive sleep apnea but does not wear his CPAP machine because he states it is too hard to put it on and keep it on. Denies fevers, rigors, diaphoresis. Denies cough or sputum production. Increased dyspnea particularly with exertion such that he is hardly able to get up in even get to the bathroom now whereas previously he has been able to do so. He does not know about edema. Denies syncope or near-syncope. Takes his medications as prescribed, the staff at his long-term help him with taking his medications as prescribed. Again does not use his CPAP. It is not clear to me that we have an accurate medication list for him. Based on medication list I do have for him he takes amlodipine, hydralazine, torsemide, isosorbide mononitrate, metoprolol succinate, carvedilol, rosuvastatin, aspirin. Currently does not take empagliflozin (Jardiance). Last echo in 2018 remarkable for severe left ventricular hypertrophy with EF of 70-75%. Last stress test was in 2016 and negative for ischemic changes. He tells me he does see a fire engineer periodically. Review of Systems Status of ROS: Reports: 6 or more systems reviewed and unremarkable except as noted in History and below Medical Decision Making Medical Decision Making Code Status: Needs to be addressed with his guardian, who I have called and left a voice mail message with and have not received a return phone call from. Has patient completed a Health Care Directive: No During This Stay, Who Would You Like To Make Decisions For You In The Event You Are Unable To Make Them For Yourself?: Fatou Sierra is his court appointed guardian, . [facility] Medical History (Updated 12/15/24 @ 10:58 by Tano Phillips MD) Polypharmacy ?Z79.899 - Other group home (current) drug therapy (ICD-10) Diabetes mellitus ?E11.9 - Type 2 diabetes mellitus without complications (ICD-10) Chronic hypoxic respiratory failure ?J96.11 - Chronic respiratory failure with hypoxia (ICD-10) Anemia in chronic kidney disease (CKD) ?N18.9 - Chronic kidney disease, unspecified (ICD-10) ?D63.1 - Anemia in chronic kidney disease (ICD-10) Chronic kidney disease (CKD), stage IV (severe) ?N18.4 - Chronic kidney disease, stage 4 (severe) (ICD-10) DISH (diffuse idiopathic skeletal hyperostosis) ?M48.10 - Ankylosing hyperostosis [[place]], site unspecified (ICD-10) Edema ?R60.9 - Edema, unspecified (ICD-10) Neuropathy ?G62.9 - Polyneuropathy, unspecified (ICD-10) Learning disability ?F81.9 - Developmental disorder of scholastic skills, unspecified (ICD-10) Insomnia ?G47.00 - Insomnia, unspecified (ICD-10) Metabolic syndrome ?E88.810 - Metabolic syndrome (ICD-10) Sensorineural hearing loss (SNHL) of both ears ?H90.3 - Sensorineural hearing loss, bilateral (ICD-10) Tinnitus ?H93.19 - Tinnitus, unspecified ear (ICD-10) Hypercholesterolemia ?E78.00 - Pure hypercholesterolemia, unspecified (ICD-10) Insulin dependent diabetes mellitus Recurrent deep vein thrombosis (DVT) ?I82.409 - Acute embolism and thrombosis of unspecified deep veins of unspecified lower extremity (ICD-10) Hypertension ?I10 - Essential (primary) hypertension (ICD-10) Coronary artery disease ?I25.10 - Atherosclerotic heart disease of [place] coronary artery without angina pectoris (ICD-10) Hypertriglyceridemia ?E78.1 - Pure hyperglyceridemia (ICD-10) Epilepsy ?G40.909 - Epilepsy, unspecified, not intractable, without status epilepticus (ICD-10) TASHI on CPAP ?G47.33 - Obstructive sleep apnea (adult) (pediatric) (ICD-10) ?Z99.89 - Dependence on other enabling machines and devices (ICD-10) Tachypnea ?R06.82 - Tachypnea, not elsewhere classified (ICD-10) Fever ?R50.9 - Fever, unspecified (ICD-10) CKD (chronic kidney disease) ?N18.9 - Chronic kidney disease, unspecified (ICD-10) Gout ?M10.9 - Gout, unspecified (ICD-10) Major depressive disorder ?F32.9 - Major depressive disorder, single episode, unspecified (ICD-10) Type 2 diabetes mellitus ?E11.9 - Type 2 diabetes mellitus without complications (ICD-10) Obesity ?E66.9 - Obesity, unspecified (ICD-10) Surgical History History of cholecystectomy ?Z90.49 - Acquired absence of other specified parts of digestive tract (ICD-10) Social History Narrative: Lives in a long-term in [place], [place]. Sisters Brittany Suggs ([phone]) and Blanka Mcduffie ([phone]) listed as contacts and medical decision makers. Paperwork from long-term indicates Full Code status. What is your current living situation?: I presently have a place to live Problems where you live: no known problems Problems where you live details: none In the past 12 months, utilities in danger of being shut off: no In past 12 months, lack of transportation kept you from medical appts, meetings, work, or getting things needed for daily living: no In the past 12 mos, have been you worried that your food would run out before you had money to buy more?: never true In the past 12 mos, the food you bought just didn't last and you didn't have money to buy more?: never true Highest level of school completed/degree received: 12th grade, no diploma Smoking Status: Never smoker Do you use any of these nicotine containing products: None Second hand tobacco smoke exposure: No How often do you have a drink containing alcohol: never How often do you have six or more drinks on one occasion: Never AUDIT-C Alcohol total score: 0 Non-prescribed substance use: denies use Caffeine: No How often does anyone, including family, friends and others, physically hurt you: never How often does anyone, including family, friends and others, insult or talk down to you: never How often does anyone, including family, friends and others, threaten you with harm: never How often does anyone, including family, friends and others, scream or curse at you: never service: No Meds Home Medications and Allergies Home Medications ?Medication ?Instructions ?Recorded ?Confirmed ?Type apixaban 5 mg tablet (Eliquis) 5 mg PO BID 03/07/22 12/11/24 History aripiprazole 15 mg tablet 7.5 mg PO DAILY 03/07/22 12/11/24 History aspirin 81 mg tablet,delayed 81 mg PO DAILY 03/07/22 12/11/24 History release carbamazepine 200 mg tablet 200 mg PO BID 03/07/22 12/11/24 History ezetimibe 10 mg tablet 10 mg PO DAILY 03/07/22 12/11/24 History pantoprazole 40 mg tablet,delayed 40 mg PO DAILY 03/07/22 12/11/24 History release polyethylene glycol 3350 17 17 g PO DAILY 03/07/22 12/11/24 History gram/dose oral powder pregabalin 100 mg capsule 100 mg PO QAM 03/07/22 12/11/24 History pregabalin 150 mg capsule 150 mg PO HS 03/07/22 12/11/24 History venlafaxine 75 mg capsule,extended 225 mg PO DAILY 03/07/22 12/11/24 History release 24 hr acetaminophen 500 mg tablet 500 mg PO TID PRN 06/13/22 12/12/24 History albuterol sulfate 90 mcg/actuation 1 inh inhalation Q4H PRN 06/13/22 12/11/24 History aerosol inhaler bronchospasm diphenhydramine HCl 50 mg capsule 50 mg PO Q6H PRN itching 06/13/22 12/11/24 History (Banophen) icosapent ethyl 1 gram capsule 2 g PO BID 06/13/22 12/11/24 History (Vascepa) ketoconazole 2 % shampoo 1 applic topical Q3D 06/13/22 12/11/24 History loperamide 2 mg capsule 2 mg PO Q6H PRN loose stool 06/13/22 12/11/24 History nystatin 100,000 unit/gram topical 1 applic topical BID PRN 06/13/22 12/11/24 History powder sennosides 8.6 mg tablet (senna) 8.6 mg PO DAILY 06/13/22 12/11/24 History clotrimazole 1 % topical cream 1 applic topical BID 07/25/22 12/11/24 History hydrocortisone 2.5 % topical cream 1 applic topical BID PRN #30 grams 09/14/22 12/11/24 Rx ammonium lactate 12 % lotion 1 applic topical BID #225 grams 04/01/23 12/11/24 Rx isosorbide mononitrate 60 mg 60 mg PO DAILY 12/27/23 12/11/24 History tablet,extended release 24 hr semaglutide 1 mg/dose (4 mg/3 mL) 2 mg subcut .weekly 12/27/23 12/12/24 History subcutaneous pen injector (Ozempic) potassium chloride 20 mEq 40 meq PO TID 02/20/24 12/12/24 History tablet,extended release(part/cryst) rosuvastatin 40 mg tablet 40 mg PO HS 02/20/24 12/11/24 History camphor 4 %-methyl salicylate 30 1 applic topical QID PRN 12/12/24 12/12/24 History %-menthol 10 % topical cream (Bengay Ultra Strength) cholecalciferol (vitamin D3) 1,250 1,250 mcg PO .WED 12/12/24 12/12/24 History mcg (50,000 unit) capsule cyclobenzaprine 10 mg tablet 10 mg PO HS PRN 12/12/24 12/12/24 History hydrocodone 5 mg-acetaminophen 325 1 tab PO Q4H PRN pain 12/12/24 12/12/24 History mg tablet amlodipine 10 mg tablet 5 mg (1/2 x 10 mg) PO DAILY #30 12/15/24 12/11/24 Rx tabs carvedilol 25 mg tablet 50 mg (2 x 25 mg) PO BID #120 tabs 12/15/24 12/11/24 Rx diphenoxylate-atropine 2.5 1 tab PO DAILY PRN Diarrhea #30 12/15/24 Rx mg-0.025 mg tablet tabs empagliflozin 10 mg tablet 10 mg PO DAILY #30 tabs 12/15/24 Rx (Jardiance) hydralazine 50 mg tablet 50 mg PO TID #90 tabs 12/15/24 12/11/24 Rx hydrocodone 5 mg-acetaminophen 325 1 tab PO Q6H PRN Pain #30 tabs 12/15/24 Rx mg tablet insulin glargine 100 unit/mL (3 50 unit (0.5 mL) subcut BID #10 mL 12/15/24 Rx mL) subcutaneous pen (Lantus Solostar U-100 Insulin) insulin regular human 100 unit/mL 80 unit (0.8 mL) subcut TIDWM #10 12/15/24 Rx injection solution (Novolin R mL Regular U-100 Insulin) spironolactone 25 mg tablet 50 mg (2 x 25 mg) PO DAILY #60 tabs 12/15/24 Rx torsemide 20 mg tablet 60 mg (3 x 20 mg) PO DAILY #90 tabs 12/15/24 12/11/24 Rx Allergies Allergy/AdvReac Type Severity Reaction Status Date / Time lisinopril Allergy Mild Cough Verified 11/11/24 00:29 metformin AdvReac Verified 11/11/24 00:29 Exam Narrative: Exam Narrative: Examine him in his hospital room. Head of bed is elevated about 15? and legs are extended. He appears comfortable. Has non-rebreather mask on at 5 liters/minute and saturating 90-92%. Seems to doze off periodically but is easily aroused with simply speaking with him. Vision and hearing are adequate. Oriented to self and place but not to time and really not to situation. He has much as asks me why he is even here at the hospital. Poor insight about his health and little to no knowledge about his medications. Cooperative and friendly. Morbid obesity. Conjugate gaze. No icterus. Cranial nerves 3-12 grossly normal. Dentition in fair repair. Moist buccal mucosa. Mallampati class iv score. Neck is full. Unable to see JVD or hepatojugular reflux. Neck is supple. No obvious head and neck lymphadenopathy. Lungs with scattered rhonchi and minimal end inspiratory wheezing. No rales. Distant heart tones. Regular rhythm. No obvious murmur, gallop, rub. Obese abdomen. Active bowel sounds, soft, nontender. Pitting edema in feet, pretibially, distal thighs. Intertriginous [place] dermatitis involving the axillae, submammary skin folds, pannus, groin, intergluteal folds. No obvious focal motor neurologic deficits. BNP 582, usually 60-110. Const: Vital Signs, click to edit/add: Vital Signs - 24 hr 12/11/24 14:42 12/11/24 14:44 12/11/24 14:45 Temperature 98.9 F Pulse Rate 86 86 Pulse Rate [Pulse Oximeter] 90 Respiratory Rate 24 25 H 25 H Blood Pressure Blood Pressure [Le ft Upper Arm] 125/67 Pulse Oximetry 89 91 91 Oxygen Delivery Me thod Room Air Oxygen Flow Rate 12/11/24 15:00 12/11/24 15:01 12/11/24 15:15 Temperature Pulse Rate 93 Pulse Rate [Pulse Oximeter] Respiratory Rate 17 17 Blood Pressure Blood Pressure [Le ft Upper Arm] Pulse Oximetry 90 92 Oxygen Delivery Me thod Oxygen Flow Rate 12/11/24 15:30 12/11/24 15:31 12/11/24 15:45 Temperature Pulse Rate 85 85 85 Pulse Rate [Pulse Oximeter] Respiratory Rate 16 17 23 Blood Pressure 133/68 Blood Pressure [Le ft Upper Arm] Pulse Oximetry 92 91 90 Oxygen Delivery Me thod Room Air Oxygen Flow Rate 12/11/24 16:00 12/11/24 16:15 12/11/24 16:30 Temperature Pulse Rate 82 Pulse Rate [Pulse Oximeter] Respiratory Rate 20 22 29 H Blood Pressure Blood Pressure [Le ft Upper Arm] Pulse Oximetry 89 Oxygen Delivery Me thod Oxygen Flow Rate 12/11/24 16:32 12/11/24 16:47 12/11/24 17:00 Temperature Pulse Rate 82 80 Pulse Rate [Pulse Oximeter] Respiratory Rate 24 15 21 Blood Pressure 138/85 Blood Pressure [Le ft Upper Arm] Pulse Oximetry 90 91 Oxygen Delivery Me thod Nasal Cannula Oxygen Flow Rate 2 12/11/24 17:15 12/11/24 17:30 12/11/24 17:45 Temperature Pulse Rate Pulse Rate [Pulse Oximeter] Respiratory Rate 29 H 30 H 25 H Blood Pressure Blood Pressure [Le ft Upper Arm] Pulse Oximetry Oxygen Delivery Me thod Oxygen Flow Rate 12/11/24 18:00 12/11/24 18:15 12/11/24 18:25 Temperature Pulse Rate 80 82 Pulse Rate [Pulse Oximeter] Respiratory Rate 30 H 29 H 30 H Blood Pressure 156/76 H Blood Pressure [Le ft Upper Arm] Pulse Oximetry 79 L 88 Oxygen Delivery Me thod Nasal Cannula Oxygen Flow Rate 2 12/11/24 18:26 12/11/24 18:30 12/11/24 18:45 Temperature Pulse Rate 85 83 79 Pulse Rate [Pulse Oximeter] Respiratory Rate 31 H 33 H 30 H Blood Pressure Blood Pressure [Le ft Upper Arm] Pulse Oximetry 88 88 89 Oxygen Delivery Me thod OxyMask Oxygen Flow Rate 5 12/11/24 19:00 12/11/24 19:15 12/11/24 19:30 Temperature Pulse Rate 79 75 76 Pulse Rate [Pulse Oximeter] Respiratory Rate 28 H 30 H 28 H Blood Pressure Blood Pressure [Le ft Upper Arm] Pulse Oximetry 90 90 91 Oxygen Delivery Me thod Oxygen Flow Rate 12/11/24 19:45 12/11/24 20:00 12/11/24 20:15 Temperature Pulse Rate 75 75 76 Pulse Rate [Pulse Oximeter] Respiratory Rate 27 H 27 H 28 H Blood Pressure Blood Pressure [Le ft Upper Arm] Pulse Oximetry 90 90 91 Oxygen Delivery Me thod Oxygen Flow Rate 12/11/24 20:30 12/11/24 20:45 12/11/24 21:00 Temperature Pulse Rate 70 74 77 Pulse Rate [Pulse Oximeter] Respiratory Rate 29 H 26 H 25 H Blood Pressure Blood Pressure [Le ft Upper Arm] Pulse Oximetry 91 91 92 Oxygen Delivery Me thod Oxygen Flow Rate Hospitalist - H&P: Result Labs Labs: Short CBC 12/11/24 Range/Units 15:05 WBC 6.52 (4.50-11.00) K/uL Hgb 11.3 L (13.5-17.5) gm/dL Hct 34.3 L (37.0-53.0) % Plt Count 180 (140-440) K/uL BMP 12/11/24 15:05 Sodium 140 Potassium 3.4 L Chloride 101 Carbon Dioxide 31 BUN 25 Creatinine 1.3 Glucose 70 Calcium 8.9 Cardiac Enzymes 12/11/24 12/11/24 Range/Units 15:05 18:15 Troponin I 0.06 H* 0.05 H (0.01-0.04) ng/mL Liver Function 12/11/24 Range/Units 15:05 Total Bilirubin 0.5 (0.1-1.5) mg/dL AST 30 (12-35) U/L ALT 18 (4-50) U/L Alkaline Phosphatase 70 (40-150) U/L Albumin 3.9 (3.3-5.0) g/dL ECG ECG interpretation date: 12/11/24 Interpretation: Sinus rhythm with first-degree AV block. No ischemic or infarct patterns. Imaging Chest x-ray: Attestation: I have reviewed the pertinent imaging results. Radiologist's impression: Findings: Slightly suboptimal examination secondary to habitus. Low lung volumes. Normal cardiomediastinal silhouette. Moderate interstitial prominence and mild patchy airspace opacities. No pleural effusion or visualized pneumothorax. Impression: Moderate interstitial prominence and mild patchy airspace opacities may be exaggerated secondary to low lung volumes or represent pulmonary edema. CT scan - chest: Attestation: I have reviewed the pertinent imaging results. Radiologist's impression: Impression: 1. Diffusely increased interstitial, airspace and ground-glass opacities throughout the bilateral hemithoraces commensurate with edema and/or multifocal infiltrates.
[2024-12-12] VITALS (20 sets, daily range): BP systolic 115–188; BP diastolic 34–102; PULSE 80–143; RESP 20–33; TEMP 36.1–37.4; O2SAT 89–97
[2024-12-12] MEDS: POTASSIUM CHLORIDE 10 MEQ CAPSULE ER 40 MEQ PO ×3 (00:10→21:12)
[2024-12-12] MEDS: ACETAMINOPHEN 500 MG TABLET PO ×4 (04:15→22:25)
--- NOTE | 2024-12-12 05:52 | PC.NURSE ---
End of shift report: Pt was admitted to the floor at 5. AxOx4. VSS. Pt was on 1-5 L O2 via oxy mask due to TASHI overnight to maintain O2 sats above 88% per MD order. Pt is tolerating a heart healthy diet. Denies pain. Cont of bladder, utilizing urinal. Non blanchable redness noted in pts coccyx, mepilex applied and C/D/I. Redness noted in pts bilat armpits, lower abdominal folds and inguinal folds, areas cleaned and patted dry. Pt is resting in bed, call light within reach.?
[2024-12-12 06:30] LABS: HCO3 VBG 31 mmol/L (21-28); Lactate* 0.9 mmol/L (0.5-1.9); PCO2 VBG 45 mmHG (40-50); PO2 VBG 46.4 mmHG (25-47); pH VBG 7.441 (7.32-7.43)
[2024-12-12 06:41] LABS: Hematocrit 35.0 % (37.0-53.0); Hemoglobin* 11.7 gm/dL (13.5-17.5); Mean Corpuscular HGB Conc 33 gm/dL (32-36); Mean Corpuscular Hemoglobin 28 pg (26-34); Mean Corpuscular Volume 85 fL (80-100); Red Blood Count 4.13 m/uL (4.30-5.90); White Blood Count* 7.07 K/uL (4.50-11.00)
[2024-12-12 06:46] LABS: Slide Review Reflex No
[2024-12-12 06:52] LABS: Chloride* 99 mmol/L (96-114)
[2024-12-12 06:53] LABS: Potassium* 3.5 mmol/L (3.6-5.1); Sodium* 139 mmol/L (135-149)
[2024-12-12 06:55] LABS: Blood Urea Nitrogen* 28 mg/dL (7-30); Creatinine* 1.2 mg/dL (0.5-1.5); Est. Creatinine Clearance* 51.39; Estimated Glomerular Filt Rate 67 ml/min
[2024-12-12 06:56] LABS: Anion Gap 9 mEq/L (7-15); Calcium* 8.7 mg/dL (8.4-10.6); Carbon Dioxide* 31 mmol/L (20-32); Glucose* 113 mg/dL (60-115)
[2024-12-12 07:13] LABS: Procalcitonin* 0.20 ng/mL (<0.50)
[2024-12-12 07:20] LABS: NT Pro B Type NatriureticPept* 438 pg/mL (See Note)
[2024-12-12] MEDS: SODIUM CHLORIDE 0.9 % (FLUSH) 10 ML SYRINGE 5 ML IVF ×4 (09:02→21:13)
[2024-12-12] MEDS: FUROSEMIDE 10 MG/ML inj 40 MG IVP (09:02)
--- NOTE | 2024-12-12 09:28 | CRLHL7_ITS ---
For Patients: As a result of the Century Cures Act, medical imaging exams and procedure reports are released immediately into your electronic medical record. You may view this report before your referring provider. If you have questions, please contact your health care provider. INDICATION: Dyspnea COMPARISON: 12/11/2024, 11/10/2024 TECHNIQUE: 1 view chest radiograph. FINDINGS: Devices: None. Lung volumes are moderate. Significant soft tissue attenuation from the patient`s body habitus.. There are multifocal diffuse hazy opacities that are slightly worse than the chest radiograph obtained yesterday. No pleural effusion. No pneumothorax. No pneumomediastinum. Heart size is large. Mediastinal contours are unchanged. Bones: No acute findings. IMPRESSION: Worsening multifocal/diffuse lung opacities. Dictated by Odalis Koroma MD @ 12/12/2024 10:29:50 AM (Electronically Signed)
[2024-12-12] MEDS: METOPROLOL SUCCINATE (XL) 100 MG TAB 200 MG PO (09:36)
[2024-12-12] MEDS: ISOSORBIDE MONONITRATE ER 30 MG TAB 60 MG PO (09:37)
[2024-12-12] MEDS: OMEPRAZOLE 20 MG CAPSULE DR 40 MG PO (09:37)
[2024-12-12] MEDS: SENNOSIDES 1 TAB TABLET PO (09:38)
[2024-12-12] MEDS: EZETIMIBE 10 MG TABLET PO (09:38)
[2024-12-12] MEDS: PREGABALIN 100 MG CAPSULE PO (09:38)
[2024-12-12] MEDS: CHLORTHALIDONE 25 MG TABLET PO (09:39)
[2024-12-12] MEDS: APIXABAN 5 MG TABLET PO ×2 (09:39→21:10)
[2024-12-12] MEDS: ASPIRIN 81 MG TABLET EC PO (09:39)
[2024-12-12] MEDS: VENLAFAXINE ER 75 MG CAPSULE 225 MG PO (09:39)
[2024-12-12] MEDS: ADENOSINE 6 MG/2ML INJ IVP (09:40)
[2024-12-12] MEDS: ADENOSINE 6 MG/2ML INJ 12 MG IVP (09:40)
[2024-12-12] MEDS: METOPROLOL TARTRATE 1 MG/ML inj 5 MG IVP (09:40)
[2024-12-12 09:48] LABS: HCO3 VBG 29 mmol/L (21-28); PCO2 VBG 45 mmHG (40-50); PO2 VBG 48.2 mmHG (25-47); pH VBG 7.414 (7.32-7.43)
[2024-12-12] MEDS: EMPAGLIFLOZIN 10 MG TABLET PO (11:18)
[2024-12-12] MEDS: INSULIN REGULAR, HUMAN 100 UNIT/ML VIAL SUBCUT ×2 (11:19→17:17)
--- NOTE | 2024-12-12 11:35 | REH.PT ---
Patient with respiratory distress episode this AM, on hold for therapies, will check patient's ability for physical therapy tomorrow.
--- NOTE | 2024-12-12 12:00 | REH.OT ---
Orders for OT consult received. PT. not medically appropriate for OT today d/t respiraotry distress. Will evaluate when medically stable.
--- NOTE | 2024-12-12 12:03 | PC.NURSE ---
Event Note - At approximately 0850 RN was notified by JASON that pt was reporting SOB and increased WOB while sitting on edge of bed and during bed/brief change. RN entered pt room to find pt laying supine on bed, increased WOB and elevated HR noted. Pt reported to RN it feels like I cant breathe. RN and JASON x 2 attempted to reposition, RN adjusted O2 settings to improve oxygenation. Pt HR and O2 saturation did not improve. RN alerted MD to pt condition, orders given. RT alerted to pt condition. Pt HR and O2 saturation improved with interventions. See EMAR.
--- NOTE | 2024-12-12 13:00 | PC.PHA ---
Vancomycin consult note: Indication for vancomycin: [SEPSIS] Age: [64] Height: [165 CM] Weight: [188.5 KG] Most recent SCr: [1.2] Estimated CrCL: [53.4] Recommended dose and frequency: [1500 MG IV Q12H, AFTER 2 GM LOAD] to obtain an estimated AUC/RITA of 400-600 mcg*hr/m 464 Additional comment: [ALSO ON PIP/TAZO AND AZITHROMYCIN, PT LIVES IN [facility], DIABETIC] I ran 2 different estimation calculators and they both point to this dose.
--- NOTE | 2024-12-12 13:07 | RESP.RT ---
Rapid Response this AM for pt. RR 30, HR 130, pt stating he could not breathe. PT on partial rebreather at the time, SPO2 83%. Initiated BIPAP. 15/5 45% VT 900cc RR 34 SPO2 96% After an hour Pt RR 24, VT 800cc SPO2 99% After another hour turned IPAP down to 12cwp, at pt's request of too much pressure, also increased the rise time to 3. Pt reports being more comfortable. RR and VT mostly unchanged. Decreased FIO2 to 35% Placed on 3L with end tidal CO2 in place for eating and Echo. Will monitor. Pt has worn CPAP in the past. Unsure of settings or where his machine is at. Will give direction tonight on either CPAP or BIPAP for night staff.
[2024-12-12] MEDS: PERFLUTREN LIPID MICROSPHERES 2 ML VIAL IVP (13:37)
[2024-12-12] MEDS: AZITHROMYCIN 250 MG TABLET 500 MG PO (13:37)
[2024-12-12] MEDS: PIPERACILLIN/TAZOBACTAM 3.375 GM in 0.9 % SODIUM CHLORIDE Mini-bag 100 ML IVPB ×2 (13:38→20:02)
[2024-12-12] MEDS: FUROSEMIDE 10 MG/ML inj 80 MG IVP (13:38)
[2024-12-12] MEDS: POTASSIUM BICARB 25 MEQ EFFERVESCENT TAB 50 MEQ PO ×2 (13:41→15:50)
--- NOTE | 2024-12-12 14:02 | NUTR.NU ---
Nutrition: MD consult for heart failure and MST for pressure ulcer. Admit acute on chronic heart failure. Diet Heart Healthy. Intake 100% at breakfast today. Height 5'8, Weight 415.8 lbs, BMI 69.2. 02/20/25 chart weight 385.6 lbs, ~30 lbs weight gain in 10 months or 7.2%, not significant. Reddened areas documented by nursing, dry and intake. Visited with Leonid's guardian Danielle Sierra by phone. She is uncertain related to current diet at senior care or possible restriction availability or probability of patient compliance. She is agreeable to education information. Provided folder with education information to Azalia/nurse to provide to Danielle Sierra. Contact information included. Encouraged Danielle to contact with questions. No additional interventions at this time. Monitor diet tolerance and intake. Follow up prn.
[2024-12-12] MEDS: VANCOMYCIN 2 GM/400 ML 2 GM/400 ML PIGGYBACK IVPB (14:25)
--- NOTE | 2024-12-12 14:47 | RESP.RT ---
I was able to locate pt's sleep study from 2018. It was a technically difficult study and required 2 nights. Pt was prescribed CPAP at 15cwp. It is unclear how long pt wore his CPAP, as he is not sure where it is now. Set PAP unit in CPAP mode at 12cwp, because pt has not used the unit in a while, and it may be difficult to tolerate the 15cwp over night, without some titration into that pressure. If he is unable to tolerate, return to BIPAP of 12/5 at 35%.
--- NOTE | 2024-12-12 16:35 | P.IMPN_ITS ---
Assessment and Plan Assessment and plan (1) Acute on chronic diastolic heart failure: Problem comment: Acute hypoxic respiratory failure likely due primarily to heart failure which is most likely heart failure with preserved ejection fraction. Echocardiogram is quite limited due to body habitus. Optimize heart failure management with aggressive diuresis and optimizing chronic heart failure medicines. Status: Acute (2) Tachycardia: Problem comment: Patient had an episode of acute on chronic tachycardia this was probably sinus tachycardia though at higher rates no P waves are identified. It was a narrow complex tachycardia and regular. Improved with treatment of heart failure with BiPAP and beta-thanh. Continue to monitor for recurrent tachycardia as well as recurrent respiratory failure Status: Acute (3) Chronic hypoxic respiratory failure: Problem comment: Likely has some chronic hypoxic respiratory failure with possible obesity hypoventilation syndrome. Status: Acute (4) Diabetes mellitus: Problem comment: Current insulin regimen and is only regular insulin 140 units in the morning and at noon and 160 units at dinner. Will transition to a basal bolus regimen with Lantus. Also taking Ozempic and now started on Jardiance. Hemoglobin A1c was 7.3 on admission. Status: Acute (5) Morbid obesity: Problem comment: BMI 69 Status: Acute (6) Learning disability: Problem comment: Significant deficits in understanding his medical history but appears to be able to make straightforward decisions about his medical care. Status: Acute (7) Epilepsy: Problem comment: - on carbamazepine Status: Acute (8) Coronary artery disease: Problem comment: - STEMI in December 2019, treated at [place] with stenting of RCA, followed next day by stenting of distal LAD and diagonal branch. Mildly elevated troponins likely reflect stress ischemia from heart failure rather than acute coronary syndrome Two years ago was hospitalized with a Lexiscan showing a mild area of ischemia. Medical management. Status: Acute (9) TASHI on CPAP: Problem comment: - does not use his CPAP. Likely would benefit greatly from use of CPAP at home Status: Acute (10) Recurrent deep vein thrombosis (DVT): Problem comment: - anticoagulated on Eliquis Status: Acute (11) Polypharmacy: Problem comment: Review his very long list of medications and optimize for his most serious chronic medical problems. Status: Acute Plan Patient admitted to the hospital for hypoxic respiratory failure thought secondary to heart failure now transferred to the CCU due to acute on chronic dyspnea and hypoxic respiratory failure and acute tachycardia. Will attempt to optimize management of chronic medical problems as well as resolve his hypoxic respiratory failure. Total Time Spent Total Time Spent: Total time spent today is 105 minutes in critical care evaluation and management at the bedside Subjective Date Seen: 12/12/24 Interval history: Leonid Leahy is a 64 year old man who resides in a skilled nursing and has a court appointed guardian, Danielle Sierra, , presents to the emergency department this evening for assessment of increasing dyspnea and chest pain at times in association with dyspnea. He is not a accurate historian. As best as he can tell us he has had increasing dyspnea for the past 2 days with intermittent episodes of chest discomfort. Ordinarily sleeps on his bed and more recently in his recliner chair. Has severe obstructive sleep apnea but does not wear his CPAP machine because he states it is too hard to put it on and keep it on. He reports that he does not know where his CPAP equipment is now. Denies fevers, rigors, diaphoresis. Denies cough or sputum production. Increased dyspnea particularly with exertion such that he is hardly able to get up in even get to the bathroom now whereas previously he has been able to do so. He does not know about edema. Denies syncope or near-syncope. Takes his medications as prescribed, the staff at his skilled nursing help him with taking his medications as prescribed. Again does not use his CPAP. It is not clear to me that we have an accurate medication list for him. Based on medication list I do have for him he takes amlodipine, hydralazine, torsemide, isosorbide mononitrate, metoprolol succinate, carvedilol, rosuvastatin, aspirin. Currently does not take empagliflozin (Jardiance). Last echo in 2018 remarkable for severe left ventricular hypertrophy with EF of 70-75%. Last stress test was in 2016 and negative for ischemic changes. He tells me he does see a sanitation truck cleaner periodically and is due for an appointment tomorrow. The last cardiology appointment I could find in his chart was in 2022. He is known to have coronary artery disease with multiple stents. 12/12/2024: Initially when I see the patient this morning he reports he is feeling a little better today. He still dyspneic and requiring some oxygen to maintain his O2 sats above 90%. He is not having any chest pain at this time. He otherwise reports no concerns. About 30 minutes after I see him he is sitting on the edge of the bed when he has sudden onset of dyspnea and tachycardia. The nurse called me immediately to his bedside where he is found to have a regular tachycardia in the 140s and be obviously dyspneic. We quickly place him on BiPAP. He is given furosemide and has some improvement but still has this regular tachycardia. He receives adenosine 6 mg and 12 mg for his tachycardia without any significant response. He then receives IV metoprolol which does improve his heart rate along with the BiPAP. Chest x-ray at that time shows worsening infiltrates. He is treated for pneumonia with broad-spectrum antibiotics as well as heart failure with additional furosemide. Exam Narrative: Exam Narrative: He is alert and gives his own history. He does not recall significant portions of his past medical history but appears able to make decisions about ongoing healthcare. Oropharynx with very small airway. Neck is supple. I do not appreciate neck veins. Respirations with diffuse rhonchi and somewhat diminished breath sounds. Mildly prolonged expiratory phase. Cardiovascular: S1, S2, regular tachycardia. Abdomen is soft without tenderness or mass. Prominent abdominal pannus. Extremities with moderate bilateral edema. Skin is warm to touch and he has good perfusion Const: Vital Signs, click to edit/add: Vital Signs - 24 hr 12/11/24 16:47 12/11/24 17:00 12/11/24 17:15 Temperature Pulse Rate 80 Pulse Rate [Pulse Oximeter] Pulse Rate [Right Pulse Oximeter] Respiratory Rate 15 21 29 H Blood Pressure Blood Pressure [Le ft Upper Arm] Blood Pressure [le ft arm] Pulse Oximetry 91 Oxygen Delivery Me thod Oxygen Flow Rate Fraction of Inspir ed Oxygen 12/11/24 17:30 12/11/24 17:45 12/11/24 18:00 Temperature Pulse Rate Pulse Rate [Pulse Oximeter] Pulse Rate [Right Pulse Oximeter] Respiratory Rate 30 H 25 H 30 H Blood Pressure Blood Pressure [Le ft Upper Arm] Blood Pressure [le ft arm] Pulse Oximetry Oxygen Delivery Me thod Oxygen Flow Rate Fraction of Inspir ed Oxygen 12/11/24 18:15 12/11/24 18:25 12/11/24 18:26 Temperature Pulse Rate 80 82 85 Pulse Rate [Pulse Oximeter] Pulse Rate [Right Pulse Oximeter] Respiratory Rate 29 H 30 H 31 H Blood Pressure 156/76 H Blood Pressure [Le ft Upper Arm] Blood Pressure [le ft arm] Pulse Oximetry 79 L 88 88 Oxygen Delivery Me thod Nasal Cannula OxyMask Oxygen Flow Rate 2 5 Fraction of Inspir ed Oxygen 12/11/24 18:30 12/11/24 18:45 12/11/24 19:00 Temperature Pulse Rate 83 79 79 Pulse Rate [Pulse Oximeter] Pulse Rate [Right Pulse Oximeter] Respiratory Rate 33 H 30 H 28 H Blood Pressure Blood Pressure [Le ft Upper Arm] Blood Pressure [le ft arm] Pulse Oximetry 88 89 90 Oxygen Delivery Me thod Oxygen Flow Rate Fraction of Inspir ed Oxygen 12/11/24 19:15 12/11/24 19:30 12/11/24 19:45 Temperature Pulse Rate 75 76 75 Pulse Rate [Pulse Oximeter] Pulse Rate [Right Pulse Oximeter] Respiratory Rate 30 H 28 H 27 H Blood Pressure Blood Pressure [Le ft Upper Arm] Blood Pressure [le ft arm] Pulse Oximetry 90 91 90 Oxygen Delivery Me thod Oxygen Flow Rate Fraction of Inspir ed Oxygen 12/11/24 20:00 12/11/24 20:15 12/11/24 20:30 Temperature Pulse Rate 75 76 70 Pulse Rate [Pulse Oximeter] Pulse Rate [Right Pulse Oximeter] Respiratory Rate 27 H 28 H 29 H Blood Pressure Blood Pressure [Le ft Upper Arm] Blood Pressure [le ft arm] Pulse Oximetry 90 91 91 Oxygen Delivery Me thod Oxygen Flow Rate Fraction of Inspir ed Oxygen 12/11/24 20:45 12/11/24 21:00 12/11/24 21:15 Temperature Pulse Rate 74 77 Pulse Rate [Pulse Oximeter] Pulse Rate [Right Pulse Oximeter] Respiratory Rate 26 H 25 H 20 Blood Pressure Blood Pressure [Le ft Upper Arm] Blood Pressure [le ft arm] Pulse Oximetry 91 92 93 Oxygen Delivery Me thod OxyMask Oxygen Flow Rate 3 Fraction of Inspir ed Oxygen 12/11/24 21:15 12/11/24 23:00 12/12/24 02:02 Temperature 97.6 F 97 F L Pulse Rate Pulse Rate [Pulse Oximeter] 80 Pulse Rate [Right Pulse Oximeter] 73 Respiratory Rate 22 20 20 Blood Pressure Blood Pressure [Le ft Upper Arm] Blood Pressure [le ft arm] 131/76 157/88 H Pulse Oximetry 93 93 93 Oxygen Delivery Me thod OxyMask OxyMask OxyMask Oxygen Flow Rate 5 1 1 Fraction of Inspir ed Oxygen 12/12/24 03:09 12/12/24 03:20 12/12/24 07:00 Temperature Pulse Rate 80 104 H Pulse Rate [Pulse Oximeter] Pulse Rate [Right Pulse Oximeter] Respiratory Rate Blood Pressure Blood Pressure [Le ft Upper Arm] Blood Pressure [le ft arm] Pulse Oximetry 95 Oxygen Delivery Me thod OxyMask Oxygen Flow Rate 3 Fraction of Inspir ed Oxygen 12/12/24 07:00 12/12/24 08:50 12/12/24 09:12 Temperature Pulse Rate Pulse Rate [Pulse Oximeter] Pulse Rate [Right Pulse Oximeter] 143 H 129 H Respiratory Rate 33 H Blood Pressure Blood Pressure [Le ft Upper Arm] Blood Pressure [le ft arm] 181/89 H 188/102 H Pulse Oximetry 91 89 Oxygen Delivery Me thod OxyMask Non Rebreather Mas k Oxygen Flow Rate 3 10 Fraction of Inspir ed Oxygen 12/12/24 09:14 12/12/24 09:17 12/12/24 11:00 Temperature Pulse Rate Pulse Rate [Pulse Oximeter] Pulse Rate [Right Pulse Oximeter] 124 H 111 H 110 H Respiratory Rate 24 Blood Pressure Blood Pressure [Le ft Upper Arm] Blood Pressure [le ft arm] 184/95 H 138/56 L Pulse Oximetry 96 Oxygen Delivery Me thod BiPAP Oxygen Flow Rate Fraction of Inspir ed Oxygen 40 12/12/24 11:01 12/12/24 12:20 12/12/24 12:24 Temperature 98.3 F Pulse Rate 107 H Pulse Rate [Pulse Oximeter] 110 H Pulse Rate [Right Pulse Oximeter] 106 H Respiratory Rate 32 H Blood Pressure Blood Pressure [Le ft Upper Arm] 138/56 L Blood Pressure [le ft arm] Pulse Oximetry 97 Oxygen Delivery Me thod BiPAP Oxygen Flow Rate Fraction of Inspir ed Oxygen 12/12/24 12:42 12/12/24 14:09 12/12/24 15:00 Temperature 98.8 F Pulse Rate Pulse Rate [Pulse Oximeter] Pulse Rate [Right Pulse Oximeter] 102 H Respiratory Rate 24 22 Blood Pressure Blood Pressure [Le ft Upper Arm] Blood Pressure [le ft arm] 129/68 Pulse Oximetry 92 92 Oxygen Delivery Me thod Nasal Cannula Nasal Cannula Oxygen Flow Rate 3 3 Fraction of Inspir ed Oxygen 45 12/12/24 16:00 12/12/24 16:06 12/12/24 16:09 Temperature 97.6 F Pulse Rate 96 Pulse Rate [Pulse Oximeter] Pulse Rate [Right Pulse Oximeter] 98 Respiratory Rate 22 22 Blood Pressure Blood Pressure [Le ft Upper Arm] Blood Pressure [le ft arm] 133/62 Pulse Oximetry 91 Oxygen Delivery Me thod Nasal Cannula Oxygen Flow Rate 3 Fraction of Inspir ed Oxygen Documenting provider has reviewed patient's vital signs: yes Labs Labs: Laboratory Results - last 24 hr 12/11/24 12/11/24 12/11/24 18:15 19:37 21:00 WBC RBC Hgb Hct MCV MCH MCHC Plt Count VBG pH 7.437 H VBG pCO2 45 VBG pO2 79.9 H VBG HCO3 30 H Sodium Potassium Chloride Carbon Dioxide Anion Gap BUN Creatinine Estimated Creat Clear Estimated GFR Glucose Hemoglobin A1c Lactate Calcium Phosphorus Magnesium Troponin I 0.05 H C-Reactive Protein NT-Pro-B Natriuret Pep Procalcitonin 0.18 TSH SARS-CoV-2 (PCR) Negative SARS-CoV-2 Influenza Type A (PCR) Negative PCR FLU A Influenza Type B (PCR) Negative PCR FLU B RSV (PCR) Negative PCR RSV 12/11/24 12/12/24 12/12/24 21:40 06:14 09:38 WBC 7.07 RBC 4.13 L Hgb 11.7 L Hct 35.0 L MCV 85 MCH 28 MCHC 33 Plt Count 185 VBG pH 7.443 H 7.441 H 7.414 VBG pCO2 45 45 45 VBG pO2 88.4 H 46.4 48.2 H VBG HCO3 30 H 31 H 29 H Sodium 139 Potassium 3.5 L Chloride 99 Carbon Dioxide 31 Anion Gap 9 BUN 28 Creatinine 1.2 Estimated Creat Clear 51.39 Estimated GFR 67 Glucose 113 Hemoglobin A1c 7.3 H Lactate 0.9 Calcium 8.7 Phosphorus 4.9 H Magnesium 2.2 Troponin I 0.03 0.04 C-Reactive Protein 16.3 H NT-Pro-B Natriuret Pep 438 H Procalcitonin 0.20 TSH 0.985 SARS-CoV-2 (PCR) Influenza Type A (PCR) Influenza Type B (PCR) RSV (PCR)
[2024-12-12 17:03] LABS: Chloride* 96 mmol/L (96-114); Potassium* 3.8 mmol/L (3.6-5.1); Sodium* 138 mmol/L (135-149)
[2024-12-12 17:06] LABS: Anion Gap 8 mEq/L (7-15); Blood Urea Nitrogen* 33 mg/dL (7-30); Calcium* 8.8 mg/dL (8.4-10.6); Carbon Dioxide* 34 mmol/L (20-32); Creatinine* 1.3 mg/dL (0.5-1.5); Est. Creatinine Clearance* 47.44; Estimated Glomerular Filt Rate 61 ml/min; Glucose* 148 mg/dL (60-115)
[2024-12-12] MEDS: SPIRONOLACTONE 25 MG TABLET PO (17:20)
--- NOTE | 2024-12-12 19:27 | PC.NURSE ---
End of shift [id number] ? Pt alert, oriented, cooperative. Not up from bed during shift, but able to roll and boost self in bed. Continent and incontinent of bladder during shift. Denied pain and n/v. Pt experienced episode of elevated HR and increased WOB and SOB. Event is described in previous RN note. Pt reported no other instances of increased WOB or SOB during shift. Tolerated BiPap while in use. Later switched to nasal cannula and tolerated O2 at 3L and was able to maintain saturations per MD and RT orders. Appears to be resting comfortably at the end of shift with call light within reach. ?
[2024-12-12] MEDS: HYDRALAZINE 25 MG TABLET PO (21:09)
[2024-12-12] MEDS: ROSUVASTATIN CALCIUM 10 MG TABLET 40 MG PO (21:10)
[2024-12-12] MEDS: PREGABALIN 75 MG CAPSULE 150 MG PO (21:12)
[2024-12-12] MEDS: CLOTRIMAZOLE 1 % CREAM 1 APPLIC TOPICAL (21:12)
[2024-12-12] MEDS: NYSTATIN POWDER 1 APPLIC TOPICAL (21:14)
[2024-12-13] VITALS (14 sets, daily range): BP systolic 112–156; BP diastolic 52–77; PULSE 71–94; RESP 14–24; TEMP 35.7–37; O2SAT 89–96
[2024-12-13] MEDS: PIPERACILLIN/TAZOBACTAM 3.375 GM in 0.9 % SODIUM CHLORIDE Mini-bag 100 ML IVPB ×4 (02:09→19:50)
[2024-12-13] MEDS: SODIUM CHLORIDE 0.9 % (FLUSH) 10 ML SYRINGE 5 ML IVF ×3 (02:10→21:51)
[2024-12-13] MEDS: VANCOMYCIN 1.5 GM/300 ML 1.5 GM/300 ML PIGGYBACK IVPB (03:15)
--- NOTE | 2024-12-13 05:08 | PC.NURSE ---
[id number] Pt slept well during night, tolerated BiPAP entire time sleeping. some SOB at rest, denied CP. used urinal in bed with assistance. able to reposition self in bed, need encouragement for activity/movement. denies pain.
[2024-12-13 06:56] LABS: Hematocrit 33.1 % (37.0-53.0); Hemoglobin* 11.0 gm/dL (13.5-17.5); Immature Granulocytes Abs Auto 0.01 K/uL (0.00-0.30); Immature Granulocytes Pct Auto 0.2 %; Lymphocytes Absolute Auto 1.43 K/uL (0.90-2.90); Mean Corpuscular HGB Conc 33 gm/dL (32-36); Mean Corpuscular Hemoglobin 29 pg (26-34); Mean Corpuscular Volume 86 fL (80-100); RDW Coefficient of Variation % 14.7 % (11.5-15.5); Red Blood Count 3.84 m/uL (4.30-5.90); White Blood Count* 5.23 K/uL (4.50-11.00)
[2024-12-13 06:57] LABS: HCO3 VBG 33 mmol/L (21-28); PCO2 VBG 48 mmHG (40-50); PO2 VBG 48.5 mmHG (25-47); pH VBG 7.448 (7.32-7.43)
[2024-12-13 07:04] LABS: Slide Review Reflex No
[2024-12-13 07:23] LABS: Chloride* 99 mmol/L (96-114); Potassium* 3.6 mmol/L (3.6-5.1); Sodium* 140 mmol/L (135-149)
[2024-12-13 07:26] LABS: Anion Gap 8 mEq/L (7-15); Blood Urea Nitrogen* 43 mg/dL (7-30); Calcium* 8.4 mg/dL (8.4-10.6); Carbon Dioxide* 33 mmol/L (20-32); Creatinine* 1.4 mg/dL (0.5-1.5); Est. Creatinine Clearance* 44.05; Estimated Glomerular Filt Rate 56 ml/min; Glucose* 104 mg/dL (60-115)
[2024-12-13] MEDS: INSULIN REGULAR, HUMAN 100 UNIT/ML VIAL SUBCUT ×2 (08:02→13:35)
[2024-12-13] MEDS: FUROSEMIDE 10 MG/ML inj 40 MG IVP ×3 (08:03→17:44)
[2024-12-13] MEDS: VENLAFAXINE ER 75 MG CAPSULE 225 MG PO (08:03)
[2024-12-13] MEDS: ASPIRIN 81 MG TABLET EC PO (08:04)
[2024-12-13] MEDS: ISOSORBIDE MONONITRATE ER 30 MG TAB 60 MG PO (08:04)
[2024-12-13] MEDS: OMEPRAZOLE 20 MG CAPSULE DR 40 MG PO (08:05)
[2024-12-13] MEDS: EMPAGLIFLOZIN 10 MG TABLET PO (08:05)
[2024-12-13] MEDS: HYDRALAZINE 25 MG TABLET PO ×3 (08:05→21:49)
[2024-12-13] MEDS: EZETIMIBE 10 MG TABLET PO (08:05)
[2024-12-13] MEDS: SPIRONOLACTONE 25 MG TABLET PO (08:05)
[2024-12-13] MEDS: PREGABALIN 100 MG CAPSULE PO (08:06)
[2024-12-13] MEDS: POTASSIUM CHLORIDE 10 MEQ CAPSULE ER 40 MEQ PO ×3 (08:06→17:44)
[2024-12-13] MEDS: SENNOSIDES 1 TAB TABLET PO (08:06)
[2024-12-13] MEDS: METOPROLOL SUCCINATE (XL) 100 MG TAB PO (08:06)
[2024-12-13] MEDS: APIXABAN 5 MG TABLET PO ×2 (08:07→21:48)
[2024-12-13] MEDS: ACETAMINOPHEN 500 MG TABLET PO ×3 (11:07→21:50)
--- NOTE | 2024-12-13 11:36 | PC.NURSE ---
RN contacted via phone legal guardian Carmen Sierra and STARLA Srinivasan at [facility] with updates per request
--- NOTE | 2024-12-13 12:04 | PM.IMPN1 ---
Assessment and Plan Assessment and plan (1) Acute on chronic diastolic heart failure: Problem comment: Acute hypoxic respiratory failure likely due primarily to heart failure which is most likely heart failure with preserved ejection fraction. Echocardiogram is quite limited due to body habitus. Optimize heart failure management with aggressive diuresis and optimizing chronic heart failure medicines. Status: Acute (2) Tachycardia: Problem comment: Patient had an episode of acute on chronic tachycardia this was probably sinus tachycardia though at higher rates no P waves are identified. It was a narrow complex tachycardia and regular. Improved with treatment of heart failure with BiPAP and beta-thanh. Continue to monitor for recurrent tachycardia as well as recurrent respiratory failure. Will transition to carvedilol alone to see if he can get for rate control with this. Status: Acute (3) Chronic hypoxic respiratory failure: Problem comment: Likely has some chronic hypoxic respiratory failure with possible obesity hypoventilation syndrome. Status: Acute (4) Diabetes mellitus: Problem comment: Current insulin regimen and is only regular insulin 140 units in the morning and at noon and 160 units at dinner. Will transition to a basal bolus regimen with Lantus. Also taking Ozempic and now started on Jardiance. Hemoglobin A1c was 7.3 on admission. Status: Acute (5) Morbid obesity: Problem comment: BMI 69. Suspected to have obesity hypoventilation syndrome Status: Acute (6) Learning disability: Problem comment: Significant deficits in understanding his medical history but appears to be able to make straightforward decisions about his medical care. Status: Acute (7) Epilepsy: Problem comment: - on carbamazepine Status: Acute (8) Coronary artery disease: Problem comment: - STEMI in December 2019, treated at [place] with stenting of RCA, followed next day by stenting of distal LAD and diagonal branch. Mildly elevated troponins likely reflect stress ischemia from heart failure rather than acute coronary syndrome Two years ago was hospitalized with a Lexiscan showing a mild area of ischemia. Medical management. Status: Acute (9) TASHI on CPAP: Problem comment: - does not use his CPAP. Likely would benefit greatly from use of CPAP at home. Suspected to have obesity hypoventilation syndrome Status: Acute (10) Recurrent deep vein thrombosis (DVT): Problem comment: - anticoagulated on Eliquis Status: Acute (11) Polypharmacy: Problem comment: Review his very long list of medications and optimize for his most serious chronic medical problems. Status: Acute Plan Continue in hospital for management of acute on chronic hypoxic respiratory failure likely due to heart failure. Transition from CCU back to med surg status Total Time Spent Total Time Spent: Total time spent today is 60 minutes in coordination of care and discussing with patient and other providers ongoing management of hypoxic respiratory failure, heart failure and other chronic medical problems noted above Subjective Date Seen: 12/13/24 Interval history: Leonid Leahy is a 64 year old man who resides in a shelter and has a court appointed guardian, Danielle Sierra, , presents to the emergency department this evening for assessment of increasing dyspnea and chest pain at times in association with dyspnea. He is not a accurate historian. As best as he can tell us he has had increasing dyspnea for the past 2 days with intermittent episodes of chest discomfort. Ordinarily sleeps on his bed and more recently in his recliner chair. Has severe obstructive sleep apnea but does not wear his CPAP machine because he states it is too hard to put it on and keep it on. He reports that he does not know where his CPAP equipment is now. Denies fevers, rigors, diaphoresis. Denies cough or sputum production. Increased dyspnea particularly with exertion such that he is hardly able to get up in even get to the bathroom now whereas previously he has been able to do so. He does not know about edema. Denies syncope or near-syncope. Takes his medications as prescribed, the staff at his shelter help him with taking his medications as prescribed. Again does not use his CPAP. It is not clear to me that we have an accurate medication list for him. Based on medication list I do have for him he takes amlodipine, hydralazine, torsemide, isosorbide mononitrate, metoprolol succinate, carvedilol, rosuvastatin, aspirin. Currently does not take empagliflozin (Jardiance). Last echo in 2018 remarkable for severe left ventricular hypertrophy with EF of 70-75%. Last stress test was in 2016 and negative for ischemic changes. He tells me he does see a experimental mechanic periodically and is due for an appointment tomorrow. The last cardiology appointment I could find in his chart was in 2022. He is known to have coronary artery disease with multiple stents. 12/12/2024: Initially when I see the patient this morning he reports he is feeling a little better today. He still dyspneic and requiring some oxygen to maintain his O2 sats above 90%. He is not having any chest pain at this time. He otherwise reports no concerns. About 30 minutes after I see him he is sitting on the edge of the bed when he has sudden onset of dyspnea and tachycardia. The nurse called me immediately to his bedside where he is found to have a regular tachycardia in the 140s and be obviously dyspneic. We quickly place him on BiPAP. He is given furosemide and has some improvement but still has this regular tachycardia. He receives adenosine 6 mg and 12 mg for his tachycardia without any significant response. He then receives IV metoprolol which does improve his heart rate along with the BiPAP. Chest x-ray at that time shows worsening infiltrates. He is treated for pneumonia with broad-spectrum antibiotics as well as heart failure with additional furosemide. 12/13/2024: Patient reports feeling better today. He thinks he is back to normal. He is still requiring oxygen to maintain his oxygen saturation above 90%. No chest pain or fever. He is eating well. He has no other concerns. He is anxious to go home. Exam Narrative: Exam Narrative: He is alert and appears with mild increased work of breathing at rest. On supplemental oxygen per nasal cannula. He is oriented to circumstances. Respirations with somewhat diminished breath sounds and relatively clear to auscultation. Few basilar crackles. Cardiovascular: S1, S2, regular rate and rhythm. Abdomen: Bowel sounds active. Abdomen is soft without tenderness or mass. Extremities with trace edema. Const: Vital Signs, click to edit/add: Vital Signs - 24 hr 12/12/24 12:20 12/12/24 12:24 12/12/24 12:42 Temperature Pulse Rate 107 H Pulse Rate [Pulse Oximeter] Pulse Rate [Right Pulse Oximeter] 106 H Respiratory Rate Blood Pressure [le ft arm] Pulse Oximetry Oxygen Delivery Me thod Oxygen Flow Rate Fraction of Inspir ed Oxygen 45 12/12/24 14:09 12/12/24 15:00 12/12/24 16:00 Temperature 98.8 F 97.6 F Pulse Rate Pulse Rate [Pulse Oximeter] Pulse Rate [Right Pulse Oximeter] 102 H 98 Respiratory Rate 24 22 22 Blood Pressure [le ft arm] 129/68 133/62 Pulse Oximetry 92 92 91 Oxygen Delivery Me thod Nasal Cannula Nasal Cannula Nasal Cannula Oxygen Flow Rate 3 3 3 Fraction of Inspir ed Oxygen 12/12/24 16:06 12/12/24 16:09 12/12/24 18:12 Temperature 99.3 F Pulse Rate 96 Pulse Rate [Pulse Oximeter] Pulse Rate [Right Pulse Oximeter] 87 Respiratory Rate 22 20 Blood Pressure [le ft arm] 120/51 L Pulse Oximetry 91 Oxygen Delivery Me thod Nasal Cannula Oxygen Flow Rate 3 Fraction of Inspir ed Oxygen 12/12/24 20:00 12/12/24 20:00 12/12/24 20:00 Temperature 97.3 F L Pulse Rate 82 Pulse Rate [Pulse Oximeter] 82 Pulse Rate [Right Pulse Oximeter] Respiratory Rate 20 20 Blood Pressure [le ft arm] 128/78 Pulse Oximetry 93 Oxygen Delivery Me thod Nasal Cannula Oxygen Flow Rate 3 Fraction of Inspir ed Oxygen 12/12/24 22:40 12/12/24 22:40 12/13/24 00:00 Temperature 97.2 F L Pulse Rate 73 Pulse Rate [Pulse Oximeter] 82 Pulse Rate [Right Pulse Oximeter] Respiratory Rate 22 20 Blood Pressure [le ft arm] 115/34 L Pulse Oximetry 93 93 Oxygen Delivery Me thod BiPAP BiPAP Oxygen Flow Rate Fraction of Inspir ed Oxygen 12/13/24 00:00 12/13/24 03:00 12/13/24 04:00 Temperature 96.3 F L Pulse Rate Pulse Rate [Pulse Oximeter] 72 72 Pulse Rate [Right Pulse Oximeter] Respiratory Rate 20 16 17 Blood Pressure [le ft arm] 156/69 H Pulse Oximetry 96 Oxygen Delivery Me thod BiPAP Oxygen Flow Rate Fraction of Inspir ed Oxygen 30 12/13/24 04:00 12/13/24 06:49 12/13/24 07:00 Temperature Pulse Rate 77 Pulse Rate [Pulse Oximeter] Pulse Rate [Right Pulse Oximeter] Respiratory Rate 24 Blood Pressure [le ft arm] Pulse Oximetry 96 94 Oxygen Delivery Me thod Nasal Cannula Oxygen Flow Rate 3 3 Fraction of Inspir ed Oxygen 12/13/24 07:00 12/13/24 08:00 12/13/24 11:14 Temperature 97.7 F 98.6 F Pulse Rate 80 Pulse Rate [Pulse Oximeter] 80 82 Pulse Rate [Right Pulse Oximeter] Respiratory Rate 24 20 Blood Pressure [le ft arm] 145/77 H Pulse Oximetry 94 91 Oxygen Delivery Me thod Nasal Cannula Nasal Cannula Oxygen Flow Rate 3 2 Fraction of Inspir ed Oxygen Documenting provider has reviewed patient's vital signs: yes Labs Labs: Laboratory Results - last 24 hr 12/12/24 12/13/24 16:39 06:25 WBC 5.23 RBC 3.84 L Hgb 11.0 L Hct 33.1 L MCV 86 MCH 29 MCHC 33 RDW Coeff of Kaylen 14.7 Plt Count 172 Neut % (Auto) 59.1 Lymph % (Auto) 27.3 [place] % (Auto) 8.8 Eos % (Auto) 4.2 Baso % (Auto) 0.4 Neut # (Auto) 3.09 Lymph # (Auto) 1.43 [place] # (Auto) 0.50 Eos # (Auto) 0.22 Baso # (Auto) 0.02 Abs Immat Gran (auto) 0.01 Imm/Tot Granulo (auto) 0.2 VBG pH 7.448 H VBG pCO2 48 VBG pO2 48.5 H VBG HCO3 33 H Sodium 138 140 Potassium 3.8 3.6 Chloride 96 99 Carbon Dioxide 34 H 33 H Anion Gap 8 8 BUN 33 H 43 H Creatinine 1.3 1.4 Estimated Creat Clear 47.44 44.05 Estimated GFR 61 56 Glucose 148 H 104 Calcium 8.8 8.4 Troponin I 0.21 H* C-Reactive Protein 23.2 H
--- NOTE | 2024-12-13 12:10 | PC.SOCIAL ---
Addendum entered by TONNY Wiely 12/13/24 13:27: Discharge planning: dope worker left a message with Danielle Sierra(pt's Guardian) #[phone] this afternoon asking for a call back. Social work to follow-up as needed. Original Note: Discharge planning: dope worker spoke to STARLA Archer #[phone] at [facility] in [place], [place] where the pt lives and confirmed with her that the pt does not have a CPAP machine there and has never had one. The pt has lived there since 2019. dope worker updated RT about this. dope worker also let Gianni know that when the pt is ready for discharge, which will most likely not be for a few days, he will most likely need to return with oxygen. dope worker also plans to check in with the pt's Guardian about the need for him to use his CPAP. Social work to follow-up as needed.
[2024-12-13] MEDS: AZITHROMYCIN 250 MG TABLET 500 MG PO (13:36)
--- NOTE | 2024-12-13 15:34 | PC.NURSE ---
End of shift [phone] - Pt alert, oriented. Up with standby assistance and walker/gait belt. Able to tolerate short distance ambulation. Tolerating O2 via nasal cannula at 2L. Denies pain and SOB. Appears to be resting in bed with call light within reachat end of shift.
--- NOTE | 2024-12-13 15:59 | RESP.RT ---
Pt wore CPAP at 12 cwp and tolerated it well. Today on 2L NC for most of day. Pt reports he sleeps in bed and recliner at night at his residence. Talked with his [facility], and they report that since his admit in 2019 he has never had a CPAP machine. Will not use CPAP tonight and see how pt does. Instructions reported to charge nurse and pt nurse for night plan.
[2024-12-13] MEDS: ROSUVASTATIN CALCIUM 10 MG TABLET 40 MG PO (21:50)
[2024-12-13] MEDS: CLOTRIMAZOLE 1 % CREAM 1 APPLIC TOPICAL (21:52)
[2024-12-13] MEDS: PREGABALIN 75 MG CAPSULE 150 MG PO (21:53)
--- NOTE | 2024-12-13 23:52 | PC.NURSE ---
Arrived to find the patient alert and oriented and vitally stable. They are saturating in the upper 80s to lower 90s on 2L via nasal canula. No episodes of tachycardia or hypoxia noted over my 8 hour shift. Large of body but they are able to move themselves independently in bed and are proficient with the use of the bed trapeze. Incontinent of stool once. Continent of urine. With assist of two we are able to use a urinal in bed. Encouraging ambulation and chair use. Notable smell from abdominal area. Anti-fungal cream applied to abdominal fold in the evening. Dinner insulin held due to blood glucose being at an acceptable range. Overall nursing impression is one of medical stability while receiving oxygen. ?
[2024-12-14] VITALS (11 sets, daily range): BP systolic 134–157; BP diastolic 60–80; PULSE 62–84; RESP 16–22; TEMP 35.8–37.4; O2SAT 74–98
[2024-12-14] MEDS: PIPERACILLIN/TAZOBACTAM 3.375 GM in 0.9 % SODIUM CHLORIDE Mini-bag 100 ML IVPB (02:09)
[2024-12-14] MEDS: SODIUM CHLORIDE 0.9 % (FLUSH) 10 ML SYRINGE 5 ML IVF ×3 (02:14→21:28)
[2024-12-14] MEDS: ACETAMINOPHEN 500 MG TABLET PO ×4 (04:18→22:50)
[2024-12-14 06:29] LABS: HCO3 VBG 35 mmol/L (21-28); PCO2 VBG 53 mmHG (40-50); PO2 VBG 32.6 mmHG (25-47); pH VBG 7.425 (7.32-7.43)
[2024-12-14 06:35] LABS: Hematocrit 34.2 % (37.0-53.0); Hemoglobin* 11.2 gm/dL (13.5-17.5); Immature Granulocytes Abs Auto 0.00 K/uL (0.00-0.30); Immature Granulocytes Pct Auto 0.2 %; Lymphocytes Absolute Auto 1.30 K/uL (0.90-2.90); Mean Corpuscular HGB Conc 33 gm/dL (32-36); Mean Corpuscular Hemoglobin 28 pg (26-34); Mean Corpuscular Volume 86 fL (80-100); RDW Coefficient of Variation % 14.5 % (11.5-15.5); Red Blood Count 3.96 m/uL (4.30-5.90); Slide Review Reflex No; White Blood Count* 4.48 K/uL (4.50-11.00)
[2024-12-14 06:52] LABS: Chloride* 98 mmol/L (96-114); Potassium* 3.4 mmol/L (3.6-5.1); Sodium* 143 mmol/L (135-149)
[2024-12-14 06:55] LABS: Blood Urea Nitrogen* 40 mg/dL (7-30); Creatinine* 1.5 mg/dL (0.5-1.5); Est. Creatinine Clearance* 41.11; Estimated Glomerular Filt Rate 51 ml/min
[2024-12-14 06:56] LABS: Anion Gap 9 mEq/L (7-15); Calcium* 8.7 mg/dL (8.4-10.6); Carbon Dioxide* 36 mmol/L (20-32); Glucose* 182 mg/dL (60-115)
--- NOTE | 2024-12-14 07:10 | PC.NURSE ---
patient remained off CPAP through the night on ETCO2 ranging from 38-45. patient had multiple bm incontinence but aware when he is incontinent and uses the urinal in bed.
[2024-12-14] MEDS: INSULIN REGULAR, HUMAN 100 UNIT/ML VIAL 80 UNIT SUBCUT ×3 (09:09→17:59)
[2024-12-14] MEDS: INSULIN ASPART 100 UNIT/ML SUBCUT ×2 (09:09→13:30)
[2024-12-14] MEDS: OMEPRAZOLE 20 MG CAPSULE DR 40 MG PO (09:10)
[2024-12-14] MEDS: VENLAFAXINE ER 75 MG CAPSULE 225 MG PO (09:10)
[2024-12-14] MEDS: POTASSIUM CHLORIDE 10 MEQ CAPSULE ER 40 MEQ PO ×3 (09:10→18:01)
[2024-12-14] MEDS: ASPIRIN 81 MG TABLET EC PO (09:10)
[2024-12-14] MEDS: EMPAGLIFLOZIN 10 MG TABLET PO (09:11)
[2024-12-14] MEDS: TORSEMIDE 20 MG TABLET 60 MG PO (09:11)
[2024-12-14] MEDS: SENNOSIDES 1 TAB TABLET PO (09:11)
[2024-12-14] MEDS: APIXABAN 5 MG TABLET PO ×2 (09:11→21:22)
[2024-12-14] MEDS: SPIRONOLACTONE 25 MG TABLET 50 MG PO (09:11)
[2024-12-14] MEDS: EZETIMIBE 10 MG TABLET PO (09:11)
[2024-12-14] MEDS: ISOSORBIDE MONONITRATE ER 30 MG TAB 60 MG PO (09:11)
[2024-12-14] MEDS: HYDRALAZINE 25 MG TABLET 50 MG PO ×3 (09:11→21:23)
[2024-12-14] MEDS: PREGABALIN 100 MG CAPSULE PO (09:13)
--- NOTE | 2024-12-14 11:23 | PC.SOCIAL ---
Discharge planning: Called pt's guardian, Lluvia Sierra [phone], to discuss discharge plans. She is aware and agrees with plan for discharge back to [facility] when ready. She is aware of plan for discharge tomorrow. Lluvia requested transport by non-emergency EMS as pt has Medical Assistance that covers transportation. Guardian confirmed she will be available by phone at the same number tomorrow for an update when pt is ready for discharge. Called [facility] and spoke with nurse Zulema [phone]. She is aware and agrees to plan for discharge back to facility tomorrow. They are able to accept pt back any time he is ready for discharge, they shared that earlier is better and between 10am-4pm would work best for them. Secure emailed packet with updated MD notes, nursing notes, PT/OT notes and medications to nurse at [email or web address]. Confirmed pt's medication should be sent electronically to [facility] pharmacy in [place]. attraction worker to send discharge orders to [facility] tomorrow prior to discharge. attraction worker to follow up as needed
--- NOTE | 2024-12-14 12:58 | PM.IMPN1 ---
Assessment and Plan Assessment and plan (1) Acute on chronic diastolic heart failure: Problem comment: Acute hypoxic respiratory failure likely due primarily to heart failure which is most likely heart failure with preserved ejection fraction. Echocardiogram is quite limited due to body habitus. Optimize heart failure management with aggressive diuresis and optimizing chronic heart failure medicines. Status: Acute (2) Tachycardia: Problem comment: Patient had an episode of acute on chronic tachycardia this was probably sinus tachycardia though at higher rates no P waves are identified. It was a narrow complex tachycardia and regular. Improved with treatment of heart failure with BiPAP and beta-thanh. Continue to monitor for recurrent tachycardia as well as recurrent respiratory failure. Will transition to carvedilol alone to see if he can get for rate control with this. Status: Acute (3) Chronic hypoxic respiratory failure: Problem comment: Likely has some chronic hypoxic respiratory failure with possible obesity hypoventilation syndrome. Would benefit from a sleep study and CPAP Status: Acute (4) Diabetes mellitus: Problem comment: Current insulin regimen and is only regular insulin 140 units in the morning and at noon and 160 units at dinner. Will transition to a basal bolus regimen with Lantus. Also taking Ozempic and now started on Jardiance. Hemoglobin A1c was 7.3 on admission. Status: Acute (5) Morbid obesity: Problem comment: BMI 69. Suspected to have obesity hypoventilation syndrome Status: Acute (6) Learning disability: Problem comment: Significant deficits in understanding his medical history but appears to be able to make straightforward decisions about his medical care. Status: Acute (7) Epilepsy: Problem comment: - on carbamazepine Status: Acute (8) Coronary artery disease: Problem comment: - STEMI in December 2019, treated at [place] with stenting of RCA, followed next day by stenting of distal LAD and diagonal branch. Mildly elevated troponins likely reflect stress ischemia from heart failure rather than acute coronary syndrome. Two years ago was hospitalized with a Lexiscan showing a mild area of ischemia. Medical management. Status: Acute (9) TASHI on CPAP: Problem comment: - does not use his CPAP. Likely would benefit greatly from use of CPAP at home. Suspected to have obesity hypoventilation syndrome Status: Acute (10) Recurrent deep vein thrombosis (DVT): Problem comment: - anticoagulated on Eliquis Status: Acute (11) Polypharmacy: Problem comment: Review his very long list of medications and optimize for his most serious chronic medical problems. Status: Acute Plan Continue in hospital for 1 additional day of medical management and titrating his medications for heart failure, hypertension, diabetes. Probable discharge to home tomorrow. Total Time Spent Total Time Spent: Total time spent today is 35 minutes in coordination of care and discussing with patient and other providers management of heart failure and diabetes Subjective Date Seen: 12/14/24 Interval history: Leonid Leahy is a 64 year old man who resides in a penitentiary and has a court appointed guardian, Danielle Sierra, , presents to the emergency department this evening for assessment of increasing dyspnea and chest pain at times in association with dyspnea. He is not a accurate historian. As best as he can tell us he has had increasing dyspnea for the past 2 days with intermittent episodes of chest discomfort. Ordinarily sleeps on his bed and more recently in his recliner chair. Has severe obstructive sleep apnea but does not wear his CPAP machine because he states it is too hard to put it on and keep it on. He reports that he does not know where his CPAP equipment is now. Denies fevers, rigors, diaphoresis. Denies cough or sputum production. Increased dyspnea particularly with exertion such that he is hardly able to get up in even get to the bathroom now whereas previously he has been able to do so. He does not know about edema. Denies syncope or near-syncope. Takes his medications as prescribed, the staff at his penitentiary help him with taking his medications as prescribed. Again does not use his CPAP. It is not clear to me that we have an accurate medication list for him. Based on medication list I do have for him he takes amlodipine, hydralazine, torsemide, isosorbide mononitrate, metoprolol succinate, carvedilol, rosuvastatin, aspirin. Currently does not take empagliflozin (Jardiance). Last echo in 2018 remarkable for severe left ventricular hypertrophy with EF of 70-75%. Last stress test was in 2016 and negative for ischemic changes. He tells me he does see a septic tank cleaner periodically and is due for an appointment tomorrow. The last cardiology appointment I could find in his chart was in 2022. He is known to have coronary artery disease with multiple stents. 12/12/2024: Initially when I see the patient this morning he reports he is feeling a little better today. He still dyspneic and requiring some oxygen to maintain his O2 sats above 90%. He is not having any chest pain at this time. He otherwise reports no concerns. About 30 minutes after I see him he is sitting on the edge of the bed when he has sudden onset of dyspnea and tachycardia. The nurse called me immediately to his bedside where he is found to have a regular tachycardia in the 140s and be obviously dyspneic. We quickly place him on BiPAP. He is given furosemide and has some improvement but still has this regular tachycardia. He receives adenosine 6 mg and 12 mg for his tachycardia without any significant response. He then receives IV metoprolol which does improve his heart rate along with the BiPAP. Chest x-ray at that time shows worsening infiltrates. He is treated for pneumonia with broad-spectrum antibiotics as well as heart failure with additional furosemide. 12/13/2024: Patient reports feeling better today. He thinks he is back to normal. He is still requiring oxygen to maintain his oxygen saturation above 90%. No chest pain or fever. He is eating well. He has no other concerns. He is anxious to go home. 12/13/2024: Patient continues to report improvement. He did not require CPAP or BiPAP overnight. He had end-tidal CO2 monitoring which was relatively normal. His blood gas this morning shows mild CO2 retention with a pCO2 of 53. Not requiring oxygen today and he reports no dyspnea. He is anxious to go home and reports he is back to baseline. Exam Narrative: Exam Narrative: He is alert and appears in no distress breathing room air. Respirations are clear to auscultation with diminished breath sounds. No prolonged expiratory phase. No wheezing rales or rhonchi. Cardiovascular: S1, S2, distant heart sounds, regular rate and rhythm. Abdomen is soft without tenderness. Extremities with trace edema, improved from previously. Const: Vital Signs, click to edit/add: Vital Signs - 24 hr 12/13/24 14:33 12/13/24 15:00 12/13/24 15:45 Temperature 96.9 F L Pulse Rate 94 Pulse Rate [Pulse Oximeter] 91 91 Respiratory Rate 14 14 Blood Pressure [Ri ght Arm] 140/68 H Pulse Oximetry 89 Oxygen Delivery Me thod Nasal Cannula Oxygen Flow Rate 2 12/13/24 15:45 12/13/24 17:05 12/13/24 19:49 Temperature 97.1 F L Pulse Rate 94 Pulse Rate [Pulse Oximeter] 78 Respiratory Rate 14 14 Blood Pressure [Ri ght Arm] 112/52 L Pulse Oximetry 89 92 Oxygen Delivery Me thod Room Air Nasal Can nula Nasal Cannula Oxygen Flow Rate 2 2 12/13/24 22:14 12/13/24 23:00 12/13/24 23:00 Temperature Pulse Rate 71 Pulse Rate [Pulse Oximeter] Respiratory Rate 18 14 Blood Pressure [Ri ght Arm] Pulse Oximetry 89 Oxygen Delivery Me thod Room Air Nasal Can nula Oxygen Flow Rate 2 12/14/24 00:13 12/14/24 03:49 12/14/24 06:00 Temperature 97.7 F 99.4 F Pulse Rate 77 Pulse Rate [Pulse Oximeter] 78 62 Respiratory Rate 16 18 Blood Pressure [Ri ght Arm] 157/80 H Pulse Oximetry 91 94 Oxygen Delivery Me thod Nasal Cannula Nasal Cannula Oxygen Flow Rate 2 2 12/14/24 07:00 12/14/24 07:00 12/14/24 10:00 Temperature Pulse Rate 84 Pulse Rate [Pulse Oximeter] 81 Respiratory Rate 20 20 Blood Pressure [Ri ght Arm] 136/63 Pulse Oximetry 89 89 Oxygen Delivery Me thod Room Air Room Air Oxygen Flow Rate 12/14/24 12:01 Temperature 97.8 F Pulse Rate Pulse Rate [Pulse Oximeter] 77 Respiratory Rate 22 Blood Pressure [Ri ght Arm] 155/66 H Pulse Oximetry 88 Oxygen Delivery Me thod Room Air Oxygen Flow Rate Documenting provider has reviewed patient's vital signs: yes Labs Labs: Laboratory Results - last 24 hr 12/14/24 06:18 WBC 4.48 L RBC 3.96 L Hgb 11.2 L Hct 34.2 L MCV 86 MCH 28 MCHC 33 RDW Coeff of Kaylen 14.5 Plt Count 186 Neut % (Auto) 55.3 Lymph % (Auto) 29.2 [place] % (Auto) 8.9 Eos % (Auto) 6.0 Baso % (Auto) 0.4 Neut # (Auto) 2.50 Lymph # (Auto) 1.30 [place] # (Auto) 0.40 Eos # (Auto) 0.30 Baso # (Auto) 0.00 Abs Immat Gran (auto) 0.00 Imm/Tot Granulo (auto) 0.2 VBG pH 7.425 VBG pCO2 53 H VBG pO2 32.6 VBG HCO3 35 H Sodium 143 Potassium 3.4 L Chloride 98 Carbon Dioxide 36 H Anion Gap 9 BUN 40 H Creatinine 1.5 Estimated Creat Clear 41.11 Estimated GFR 51 Glucose 182 H Calcium 8.7 Troponin I 0.09 H* C-Reactive Protein 18.1 H
--- NOTE | 2024-12-14 15:34 | PC.NURSE ---
End of shift [phone] - Pt alert, oriented, cooperative. Up with standby assistance and walker/gait belt. Tolerated increased physical activity with PT and was able to maintain normal sinus HR and oxygen saturations per MD orders. Tolerating RA and regular diet/fluids. Appears to be resting comfortably at end of shift with call light within reach.
[2024-12-14] MEDS: ROSUVASTATIN CALCIUM 10 MG TABLET 40 MG PO (21:22)
[2024-12-14] MEDS: PREGABALIN 75 MG CAPSULE 150 MG PO (21:26)
--- NOTE | 2024-12-14 22:52 | PC.NURSE ---
Pt pleasant and cooperative. UP to chair for meals. Commode in room use. Denies pain. Pt able to help with repositioning using overhead trapeze.
[2024-12-15 03:00] VITALS: BP 136/55; PULSE 89; RESP 20; TEMP 37; O2SAT 89
[2024-12-15] MEDS: ACETAMINOPHEN 500 MG TABLET PO ×2 (04:14→10:36)
[2024-12-15 06:34] LABS: HCO3 VBG 35 mmol/L (21-28); PCO2 VBG 53 mmHG (40-50); PO2 VBG < 30.1 mmHG (25-47); pH VBG 7.430 (7.32-7.43)
[2024-12-15 06:49] LABS: Hematocrit 36.5 % (37.0-53.0); Hemoglobin* 12.0 gm/dL (13.5-17.5); Immature Granulocytes Abs Auto 0.01 K/uL (0.00-0.30); Immature Granulocytes Pct Auto 0.2 %; Lymphocytes Absolute Auto 1.74 K/uL (0.90-2.90); Mean Corpuscular HGB Conc 33 gm/dL (32-36); Mean Corpuscular Hemoglobin 28 pg (26-34); Mean Corpuscular Volume 87 fL (80-100); RDW Coefficient of Variation % 14.4 % (11.5-15.5); Red Blood Count 4.22 m/uL (4.30-5.90); White Blood Count* 5.07 K/uL (4.50-11.00)
[2024-12-15 06:50] LABS: Slide Review Reflex No
[2024-12-15 07:13] LABS: Chloride* 97 mmol/L (96-114); Potassium* 3.7 mmol/L (3.6-5.1); Sodium* 141 mmol/L (135-149)
[2024-12-15 07:16] LABS: Blood Urea Nitrogen* 40 mg/dL (7-30); Creatinine* 1.4 mg/dL (0.5-1.5); Est. Creatinine Clearance* 44.05; Estimated Glomerular Filt Rate 56 ml/min
[2024-12-15 07:17] LABS: Anion Gap 8 mEq/L (7-15); Calcium* 9.4 mg/dL (8.4-10.6); Carbon Dioxide* 36 mmol/L (20-32); Glucose* 186 mg/dL (60-115)
[2024-12-15] MEDS: POTASSIUM CHLORIDE 10 MEQ CAPSULE ER 40 MEQ PO (07:51)
[2024-12-15] MEDS: TORSEMIDE 20 MG TABLET 60 MG PO (07:51)
[2024-12-15] MEDS: INSULIN ASPART 100 UNIT/ML SUBCUT (07:51)
[2024-12-15] MEDS: INSULIN REGULAR, HUMAN 100 UNIT/ML VIAL 80 UNIT SUBCUT (07:52)
[2024-12-15 07:56] VITALS: BP 172/74; PULSE 79; RESP 22; TEMP 37; O2SAT 92
[2024-12-15 07:57] VITALS: PULSE 79; RESP 22; O2SAT 92
[2024-12-15] MEDS: VENLAFAXINE ER 75 MG CAPSULE 225 MG PO (08:13)
[2024-12-15] MEDS: ISOSORBIDE MONONITRATE ER 30 MG TAB 60 MG PO (08:14)
[2024-12-15] MEDS: ASPIRIN 81 MG TABLET EC PO (08:15)
[2024-12-15] MEDS: OMEPRAZOLE 20 MG CAPSULE DR 40 MG PO (08:15)
[2024-12-15] MEDS: SPIRONOLACTONE 25 MG TABLET 50 MG PO (08:15)
[2024-12-15] MEDS: APIXABAN 5 MG TABLET PO (08:15)
[2024-12-15] MEDS: EZETIMIBE 10 MG TABLET PO (08:16)
[2024-12-15] MEDS: PREGABALIN 100 MG CAPSULE PO (08:16)
[2024-12-15] MEDS: EMPAGLIFLOZIN 10 MG TABLET PO (08:17)
[2024-12-15] MEDS: SENNOSIDES 1 TAB TABLET PO (08:19)
[2024-12-15] MEDS: HYDRALAZINE 25 MG TABLET 50 MG PO (08:19)
[2024-12-15] MEDS: SODIUM CHLORIDE 0.9 % (FLUSH) 10 ML SYRINGE 5 ML IVF (08:20)
[2024-12-15] MEDS: CLOTRIMAZOLE 1 % CREAM 1 APPLIC TOPICAL (08:20)
--- NOTE | 2024-12-15 09:30 | PC.SOCIAL ---
Discharge plan: Called pts assisted living, [facility] and spoke with nurse Gianni who is aware and agrees with plan for discharge back today by EMS at 10:30. Secure emailed discharge orders to Gianni. Called pt's guardian, Lluvia Sierra, who is aware and agrees with discharge plan for today. Discussed the Important Message from Medicare with guardian who is in agreement with discharge today.
--- NOTE | 2024-12-15 09:53 | PC.NURSE ---
Nurse to Nurse given to Gianni.
--- NOTE | 2024-12-15 10:46 | P.DS_ITS ---
DS: Providers Provider Date Seen: 12/15/24 Date of admission: 12/11/24 21:01 Primary care physician: Not a Local Provider Admitting Clinician: Jarad Arceo MD Attending Physician on discharge: Juan Carlos Phillips MD Date of Discharge: 12/15/24 DS: Diagnosis Discharge Diagnosis (1) Acute on chronic diastolic heart failure: Status: Acute Problem details: Acute hypoxic respiratory failure likely due primarily to heart failure which is most likely heart failure with preserved ejection fraction. Echocardiogram is quite limited due to body habitus. Optimize heart failure management with aggressive diuresis and optimizing chronic heart failure medicines. Added spironolactone and empagliflozin and titrated up torsemide dose. Stop chlorthalidone. Stop metoprolol and increased carvedilol. (2) Chronic hypoxic respiratory failure: Status: Acute Problem details: Likely has some chronic hypoxic respiratory failure with possible obesity hypoventilation syndrome. Would benefit from a sleep study and CPAP. During hospital stay went from BiPAP to nasal cannula oxygen to room air with no oxygen requirement. Mild CO2 retention presumably secondary to sleep apnea (3) Tachycardia: Status: Acute Problem details: Patient had an episode of acute on chronic tachycardia this was probably sinus tachycardia though at higher rates no P waves are identified. It was a narrow complex tachycardia and regular. Improved with treatment of heart failure with BiPAP and beta-thanh. Continue to monitor for recurrent tachycardia as well as recurrent respiratory failure. Will transition to carvedilol alone to see if he can get for rate control with this. With the changes in his beta-thanh he has had good rate control so far. If he has recurrent problems with tachycardia consider switching from amlodipine to diltiazem for additional rate control. (4) Diabetes mellitus: Status: Acute Problem details: Added empagliflozin and adjusted insulin: Reduced regular insulin to 80 t.i.d. with meals and added Lantus 50 b.i.d.. Occasional low blood sugars noted with t hese changes (5) Epilepsy: Status: Acute Problem details: - on carbamazepine. no evidence of recurrent seizure (6) Candidal dermatitis: Status: Acute (7) Recurrent deep vein thrombosis (DVT): Status: Acute Problem details: - anticoagulated on Eliquis (8) TASHI on CPAP: Status: Acute Problem details: - does not use his CPAP. Likely would benefit greatly from use of CPAP at home. Suspected to have obesity hypoventilation syndrome. Will need repeat sleep study to get a new CPAP. (9) Coronary artery disease: Status: Acute Problem details: - STEMI in December 2019, treated at [place] with stenting of RCA, followed next day by stenting of distal LAD and diagonal branch. Mildly elevated troponins likely reflect stress ischemia from heart failure rather than acute coronary syndrome. Two years ago was hospitalized with a Lexiscan showing a mild area of ischemia. Medical management. DS: Summary Hospital Course Hospital Course: HPI: Leonid Leahy is a 64 year old man who resides in a intermediate and has a court appointed guardian, Danielle Sierra, , presents to the emergency department this evening for assessment of increasing dyspnea and chest pain at times in association with dyspnea. He is not a accurate historian. As best as he can tell us he has had increasing dyspnea for the past 2 days with intermittent episodes of chest discomfort. Ordinarily sleeps on his bed and more recently in his recliner chair. Has severe obstructive sleep apnea but does not wear his CPAP machine because he states it is too hard to put it on and keep it on. He reports that he does not know where his CPAP equipment is now. Denies fevers, rigors, diaphoresis. Denies cough or sputum production. Increased dyspnea particularly with exertion such that he is hardly able to get up in even get to the bathroom now whereas previously he has been able to do so. He does not know about edema. Denies syncope or near-syncope. Takes his medications as prescribed, the staff at his intermediate help him with taking his medications as prescribed. Again does not use his CPAP. It is not clear to me that we have an accurate medication list for him. Based on medication list I do have for him he takes amlodipine, hydralazine, torsemide, isosorbide mononitrate, metoprolol succinate, carvedilol, rosuvastatin, aspirin. Currently does not take empagliflozin (Jardiance). Last echo in 2018 remarkable for severe left ventricular hypertrophy with EF of 70-75%. Last stress test was in 2015 and negative for ischemic changes. He tells me he does see a certified wellness program manager periodically and is due for an appointment tomorrow. The last cardiology appointment I could find in his chart was in 2022. He is known to have coronary artery disease with multiple stents. Hospital course: Patient initially diagnosed and treated for heart failure with preserved ejection fraction. Initially had some clinical improvement and then developed a narrow complex regular tachycardia with acute respiratory distress. Was placed on BiPAP and received IV beta-thanh and aggressive diuresis with improvement. Heart failure medications were titrated with the addition of spironolactone and Jardiance, up titration of torsemide, discontinuing chlorthalidone. With these changes he had ongoing clinical improvement in his symptoms. With his clinical deterioration early in his hospital stay he was evaluated for sepsis and treated for pneumonia. Treatment was stopped when it became apparent that he did not have any other evidence of pneumonia or obvious infection. He was having some low blood sugars and insulin was adjusted along with the addition of Jardiance. Evaluation for his chronic hypoxic respiratory failure suggested that he does have significant sleep apnea. It was felt he would benefit from a sleep study and a new CPAP for his sleep apnea. He would benefit from additional weight loss. It is unknown how much benefit he has received from Ozempic. If not making progress with weight loss consider switching to tirzepatide. Status at Discharge Functional status at discharge: independent ambulation Overall status at discharge: patient is progressing back to baseline Time Spent with Patient Time attestation: Total time spent providing and/or coordinating discharge services: 40 minutes Exam Narrative: Exam Narrative: He is alert and appears in no distress. Respirations are clear to auscultation. Cardiovascular: S1, S2, regular rate and rhythm. Abdomen: Bowel sounds active. Abdomen is soft without tenderness or mass. Minimal lower extremity edema with chronic venous stasis skin changes. Const: Vital Signs, click to edit/add: Vital Signs - 24 hr 12/14/24 12:01 12/14/24 14:00 12/14/24 15:00 Temperature 97.8 F Pulse Rate 77 77 Pulse Rate [Pulse Oximeter] 77 Respiratory Rate 22 Blood Pressure [Le ft FA] Blood Pressure [Ri ght Arm] 155/66 H Blood Pressure [le ft arm] Pulse Oximetry 88 Oxygen Delivery Me thod Room Air 12/14/24 15:45 12/14/24 15:45 12/14/24 15:45 Temperature 96.4 F L Pulse Rate Pulse Rate [Pulse Oximeter] 74 74 Respiratory Rate 20 20 20 Blood Pressure [Le ft FA] Blood Pressure [Ri ght Arm] Blood Pressure [le ft arm] 141/72 H Pulse Oximetry 74 L 98 Oxygen Delivery Me thod Room Air Room Air 12/14/24 19:40 12/14/24 23:00 12/14/24 23:00 Temperature 97.3 F L Pulse Rate Pulse Rate [Pulse Oximeter] 73 84 Respiratory Rate 22 20 20 Blood Pressure [Le ft FA] Blood Pressure [Ri ght Arm] Blood Pressure [le ft arm] 144/73 H Pulse Oximetry 91 94 Oxygen Delivery Me thod Room Air Room Air 12/14/24 23:00 12/15/24 03:00 12/15/24 07:56 Temperature 97.9 F 98.6 F 98.6 F Pulse Rate Pulse Rate [Pulse Oximeter] 84 89 79 Respiratory Rate 20 20 22 Blood Pressure [Le ft FA] 172/74 H Blood Pressure [Ri ght Arm] 136/55 L Blood Pressure [le ft arm] 134/60 Pulse Oximetry 94 89 92 Oxygen Delivery Me thod Room Air Room Air Documenting provider has reviewed patient's vital signs: yes DS: Data Data Completed and Pending Completed studies during hospitalization: Procedures Introduction of Other Gas into Respiratory Tract, Via Natural or Artificial Opening (07/24/22) Labs on day of discharge: Labs from last 24 hours 12/15/24 06:21 WBC 5.07 RBC 4.22 L Hgb 12.0 L Hct 36.5 L MCV 87 MCH 28 MCHC 33 RDW Coeff of Kaylen 14.4 Plt Count 208 Neut % (Auto) 50.5 Lymph % (Auto) 34.3 Baldwin % (Auto) 8.7 Eos % (Auto) 5.7 Baso % (Auto) 0.6 Neut # (Auto) 2.56 Lymph # (Auto) 1.74 Baldwin # (Auto) 0.40 Eos # (Auto) 0.29 Baso # (Auto) 0.03 Abs Immat Gran (auto) 0.01 Imm/Tot Granulo (auto) 0.2 VBG pH 7.430 VBG pCO2 53 H VBG pO2 < 30.1 VBG HCO3 35 H Sodium 141 Potassium 3.7 Chloride 97 Carbon Dioxide 36 H Anion Gap 8 BUN 40 H Creatinine 1.4 Estimated Creat Clear 44.05 Estimated GFR 56 Glucose 186 H Calcium 9.4 C-Reactive Protein 12.1 H Preliminary micro results at discharge 12/11/24 18:21 Blood Culture - Preliminary Blood NO GROWTH AFTER 72 HOURS 12/11/24 18:15 Blood Culture - Preliminary Blood NO GROWTH AFTER [address] scan - chest: Radiologist's impression: Indication: Chest pain, shortness of breath and elevated CRP Technique: Volumetric multidetector CT images of the chest were obtained without the administration of IV contrast. Comparison: CT chest November 16, 2024 Findings: The thoracic inlet and thyroid gland are unremarkable. The thoracic aorta is nonaneurysmal. There are enlarged, reactive mediastinal lymph nodes similar to prior. Marked central bronchial thickening with minimal mucoid impaction of the lower lobe bronchi. There are diffusely increased interstitial airspace and ground-glass opacities within the bilateral laci thoraces commensurate with likely developing edema and/or multifocal infiltrates. Minimal right basilar effusion. No pneumothorax. There is no evidence of pulmonary mass or suspicious pulmonary nodule. Cystic changes of the kidneys are appreciated. Otherwise the upper abdomen is grossly unremarkable. The thoracic vertebral body heights are grossly maintained with flowing anterior osteophytosis. No significant spondylolisthesis or displaced fracture. Impression: 1. Diffusely increased interstitial, airspace and ground-glass opacities throughout the bilateral hemithoraces commensurate with edema and/or multifocal infiltrates. Discharge Plan Discharge Disposition: Home w/ Parent or Adult Date of Admission: 12/11/24 21:01 Attending Provider on Discharge: Tano Phillips Primary Care Provider: Provider,Not a Local Condition: Stable Anticipated Discharge Date/Time: 12/15/24 09:00 Discharge Medications: New hydrocodone-acetaminophen 5-325 mg Tablet 1 tab PO Q6H PRN (Reason: Pain) Qty: 30 0RF diphenoxylate-atropine 2.5-0.025 mg Tablet 1 tab PO DAILY PRN (Reason: Diarrhea) Qty: 30 0RF Novolin R Regular U100 Insulin 100 unit/mL Solution 80 unit subcut TIDWM Qty: 10 0RF insulin glargine [Lantus Solostar U-100 Insulin] 100 unit/mL (3 mL) Insulin Pen 50 unit subcut BID Qty: 10 0RF spironolactone 25 mg Tablet 50 mg PO DAILY Qty: 60 0RF Jardiance 10 mg Tablet 10 mg PO DAILY Qty: 30 0RF Continued aripiprazole 15 mg tablet 7.5 mg PO DAILY Eliquis 5 mg tablet 5 mg PO BID aspirin 81 mg tablet,delayed release (DR/EC) 81 mg PO DAILY venlafaxine 75 mg capsule,extended release 24hr 225 mg PO DAILY carbamazepine 200 mg tablet 200 mg PO BID pantoprazole 40 mg tablet,delayed release (DR/EC) 40 mg PO DAILY ezetimibe 10 mg tablet 10 mg PO DAILY pregabalin 100 mg capsule 100 mg PO QAM pregabalin 150 mg capsule 150 mg PO HS polyethylene glycol 3350 17 gram/dose powder 17 g PO DAILY Rx Instructions: AND TWICE DAILY NEEDED sennosides [senna] 8.6 mg tablet 8.6 mg PO DAILY ketoconazole 2 % shampoo 1 applic TOPICAL Q3D diphenhydramine HCl [Banophen] 50 mg capsule 50 mg PO Q6H PRN (Reason: itching) loperamide 2 mg capsule 2 mg PO Q6H PRN (Reason: loose stool) acetaminophen 500 mg tablet 500 mg PO TID PRN nystatin 100,000 unit/gram powder 1 applic TOPICAL BID PRN albuterol sulfate 90 mcg/actuation HFA aerosol inhaler 1 inh INHALATION Q4H PRN (Reason: bronchospasm) icosapent ethyl [Vascepa] 1 gram capsule 2 g PO BID clotrimazole 1 % cream 1 applic topical BID Rx Instructions: GROIN,PERIAREA AND ABDOMIN hydrocortisone 2.5 % cream 1 applic topical BID PRNQty: 30 1RF ammonium lactate 12 % lotion 1 applic topical BID Qty: 225 0RF isosorbide mononitrate 60 mg tablet extended release 24 hr 60 mg PO DAILY Ozempic 1 mg/dose (4 mg/3 mL) pen injector 2 mg subcut .weekly potassium chloride 20 mEq tablet,ER particles/crystals 40 meq PO TID rosuvastatin 40 mg tablet 40 mg PO HS cholecalciferol (vitamin D3) 1,250 mcg (50,000 unit) capsule 1,250 mcg PO .WED Bengay Ultra Strength 4-30-10 % cream 1 applic topical QID PRN cyclobenzaprine 10 mg tablet 10 mg PO HS PRN hydrocodone-acetaminophen 5-325 mg tablet 1 tab PO Q4H PRN (Reason: pain) Changed carvedilol 25 mg Tablet 50 mg PO BID Qty: 120 0RF torsemide 20 mg tablet 60 mg PO DAILY Qty: 90 0RF amlodipine 10 mg tablet 5 mg PO DAILY Qty: 30 0RF hydralazine 50 mg tablet 50 mg PO TID Qty: 90 0RF Patient Comments: 08,12,16,20 Discontinued chlorthalidone 25 mg tablet 25 mg PO DAILY metoprolol succinate 200 mg tablet extended release 24 hr 200 mg PO DAILY Humulin R U-500 (Conc) Insulin 500 unit/mL solution 160 unit subcut QPM Humulin R U-500 (Conc) Insulin 500 unit/mL solution 140 unit subcut 08,12 pioglitazone 30 mg tablet 30 mg PO DAILY Discharge Orders: Discharge Order (Routine); Ordered 12/15/24 Ordered By: Tano Phillips Patient Education: Diphenoxylate/Atropine (By mouth), Spironolactone (By mouth), Hydrocodone/Acetaminophen (By mouth), Empagliflozin (By mouth) (Ros schilling) Additional Instructions: Check basic metabolic panel in 4-5 days. Check blood sugars for 3 times a day before meals and at bedtime and as needed for symptoms. Check blood pressure daily for 1 week Activity Level: Activity as Tolerated Discharge Diet: Heart Healthy (2 gm sodium, low fat) Follow Up Appointments: Provider,Not a Local [Primary Care Provider, Family Practice] Referral Note: Appointment with primary care provider next week, December. Basic metabolic panel in 4-5 days Forms: [facility] Instructions
--- NOTE | 2024-12-15 12:33 | PC.NURSE ---
Discharge: Patient pleasant and cooperative, alert and oriented. Patient vitally stable, lungs clear/diminished on room air, BS WNL, IV removed, catheter intact. Patient denies pain. Patient tolerating regular diet, urinating using urinal. Patient 1 assist/walker/gb. Blood sugar this morning 187. Patient signed belongings sheet and discharge form and had no further questions regarding discharge information. Patient left the floor by EMS to home at 1126.
== END 2024-12-15 11:26 | disposition home or self-care (01) | DRG 291 ==
LOC: ED 20:05 → MEDSURG 21:10
PROVIDERS: Emergency Medicine; Family Medicine; Admitting Provider Internal Medicine; Emergency Provider Family Medicine; Visit Provider Internal Medicine
DX: I13.0 Hypertensive heart and chronic kidney disease with heart failure and stage 1 through stage 4 chronic kidney disease, or unspecified chronic kidney disease (principal); I50.33 Acute on chronic diastolic (congestive) heart failure; J96.21 Acute and chronic respiratory failure with hypoxia; N18.4 Chronic kidney disease, stage 4 (severe); E66.2 Morbid (severe) obesity with alveolar hypoventilation; Z68.44 Body mass index [BMI] 60.0-69.9, adult; I82.409 Acute embolism and thrombosis of unspecified deep veins of unspecified lower extremity; R00.0 Tachycardia, unspecified; E11.22 Type 2 diabetes mellitus with diabetic chronic kidney disease; G40.909 Epilepsy, unspecified, not intractable, without status epilepticus; F32.9 Major depressive disorder, single episode, unspecified; F81.9 Developmental disorder of scholastic skills, unspecified; I25.10 Atherosclerotic heart disease of native coronary artery without angina pectoris; Z79.01 Long term (current) use of anticoagulants; Z86.718 Personal history of other venous thrombosis and embolism; Z79.84 Long term (current) use of oral hypoglycemic drugs; Z79.4 Long term (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 insulin; Z79.82 Long term (current) use of aspirin
CPT/HCPCS: 36415; 71045; 71250; 80048; 80053; 82803; 82962; 83036; 83605; 83735; 83880; 84100; 84145; 84443; 84484; 85025; 85027; 86140; 87040; 87081; 87631; 93005; 93308; 93321; 93325; 94660; 94761; 97116; 97162; 97165; 97530; 97535; 99285; A9270; J0153; J1815; J1938; J2543; J3375; J3475; J7050; Q9957

== ENCOUNTER 2024-12-15 11:09 | Outpatient (CLI) | payer MEDICARE, MEDICAID, SELFPAY | END 2024-12-15 11:10 | disposition home or self-care (01) | PROVIDERS: Visit Provider Family Medicine | DX: I50.33 Acute on chronic diastolic (congestive) heart failure (principal) | CPT/HCPCS: A0425; A0428 ==

== ENCOUNTER 2025-01-30 20:24 | Outpatient (CLI) | payer MEDICARE, MEDICAID, SELFPAY | END 2025-01-30 20:25 | disposition home or self-care (01) | LOC: AMB 01-31 11:24 | PROVIDERS: Visit Provider Family Medicine | DX: R06.09 Other forms of dyspnea (principal) | CPT/HCPCS: A0425; A0427 ==

== ENCOUNTER 2025-01-30 20:51 | Observation (INO) | payer MEDICARE, MEDICAID, SELFPAY ==
--- NOTE | 2025-01-30 20:53 | ED.GENADULT ---
HPI - General Adult General Time Seen by Provider: 20:53 Date Seen: 01/30/25 Chief complaint: Shortness of Breath/Dyspnea Stated complaint: SOB Time Seen by Provider: 01/30/25 20:52 Source: patient, RN notes reviewed and old records reviewed Mode of arrival: ambulatory Limitations: no limitations History of Present Illness HPI narrative: 64-year-old male with history of congestive heart failure, chronic hypoxic respiratory failure, chronic kidney disease who presents today with shortness of breath with exertion. He notes for the last couple of days when he is walking he gets short of breath, also when he tries to get out of his bed with the trapeze, gets short of breath. Does little bit of chest pain with this as well, substernal. No cough, no orthopnea, no lower extremity swelling. Reports that he is taking his blood thinner as prescribed, uses CPAP at night. No fevers or chills. Related Data Home Medications ?Medication ?Instructions ?Recorded ?Confirmed apixaban 5 mg tablet (Eliquis) 5 mg PO BID 03/07/22 12/11/24 aripiprazole 15 mg tablet 7.5 mg PO DAILY 03/07/22 12/11/24 aspirin 81 mg tablet,delayed 81 mg PO DAILY 03/07/22 12/11/24 release carbamazepine 200 mg tablet 200 mg PO BID 03/07/22 12/11/24 ezetimibe 10 mg tablet 10 mg PO DAILY 03/07/22 12/11/24 pantoprazole 40 mg tablet,delayed 40 mg PO DAILY 03/07/22 12/11/24 release polyethylene glycol 3350 17 17 g PO DAILY 03/07/22 12/11/24 gram/dose oral powder pregabalin 100 mg capsule 100 mg PO QAM 03/07/22 12/11/24 pregabalin 150 mg capsule 150 mg PO HS 03/07/22 12/11/24 venlafaxine 75 mg capsule,extended 225 mg PO DAILY 03/07/22 12/11/24 release 24 hr acetaminophen 500 mg tablet 500 mg PO TID PRN 06/13/22 12/12/24 albuterol sulfate 90 mcg/actuation 1 inh inhalation Q4H PRN 06/13/22 12/11/24 aerosol inhaler bronchospasm diphenhydramine HCl 50 mg capsule 50 mg PO Q6H PRN itching 06/13/22 12/11/24 (Banophen) icosapent ethyl 1 gram capsule 2 g PO BID 06/13/22 12/11/24 (Vascepa) ketoconazole 2 % shampoo 1 applic topical Q3D 06/13/22 12/11/24 loperamide 2 mg capsule 2 mg PO Q6H PRN loose stool 06/13/22 12/11/24 nystatin 100,000 unit/gram topical 1 applic topical BID PRN 06/13/22 12/11/24 powder sennosides 8.6 mg tablet (senna) 8.6 mg PO DAILY 06/13/22 12/11/24 clotrimazole 1 % topical cream 1 applic topical BID 07/25/22 12/11/24 isosorbide mononitrate 60 mg 60 mg PO DAILY 12/27/23 12/11/24 tablet,extended release 24 hr semaglutide 1 mg/dose (4 mg/3 mL) 2 mg subcut .weekly 12/27/23 12/12/24 subcutaneous pen injector (Ozempic) potassium chloride 20 mEq 40 meq PO TID 02/20/24 12/12/24 tablet,extended release(part/cryst) rosuvastatin 40 mg tablet 40 mg PO HS 02/20/24 12/11/24 camphor 4 %-methyl salicylate 30 1 applic topical QID PRN 12/12/24 12/12/24 %-menthol 10 % topical cream (Bengay Ultra Strength) cholecalciferol (vitamin D3) 1,250 1,250 mcg PO .WED 12/12/24 12/12/24 mcg (50,000 unit) capsule cyclobenzaprine 10 mg tablet 10 mg PO HS PRN 12/12/24 12/12/24 hydrocodone 5 mg-acetaminophen 325 1 tab PO Q4H PRN pain 12/12/24 12/12/24 mg tablet Previous Rx's ?Medication ?Instructions ?Recorded hydrocortisone 2.5 % topical cream 1 applic topical BID PRN #30 grams 09/14/22 ammonium lactate 12 % lotion 1 applic topical BID #225 grams 04/01/23 amlodipine 10 mg tablet 5 mg (1/2 x 10 mg) PO DAILY #30 12/15/24 tabs carvedilol 25 mg tablet 50 mg (2 x 25 mg) PO BID #120 tabs 12/15/24 diphenoxylate-atropine 2.5 1 tab PO DAILY PRN Diarrhea #30 12/15/24 mg-0.025 mg tablet tabs empagliflozin 10 mg tablet 10 mg PO DAILY #30 tabs 12/15/24 (Jardiance) hydralazine 50 mg tablet 50 mg PO TID #90 tabs 12/15/24 hydrocodone 5 mg-acetaminophen 325 1 tab PO Q6H PRN Pain #30 tabs 12/15/24 mg tablet insulin glargine 100 unit/mL (3 50 unit (0.5 mL) subcut BID #10 mL 12/15/24 mL) subcutaneous pen (Lantus Solostar U-100 Insulin) insulin regular human 100 unit/mL 80 unit (0.8 mL) subcut TIDWM #10 12/15/24 injection solution (Novolin R mL Regular U-100 Insulin) spironolactone 25 mg tablet 50 mg (2 x 25 mg) PO DAILY #60 tabs 12/15/24 torsemide 20 mg tablet 60 mg (3 x 20 mg) PO DAILY #90 tabs 12/15/24 Allergies Allergy/AdvReac Type Severity Reaction Status Date / Time lisinopril Allergy Mild Cough Verified 01/30/25 22:06 metformin AdvReac Verified 01/30/25 22:06 [facility] Medical History (Updated 01/30/25 @ 22:57 by Alan Chaparro MD) Candidal dermatitis ?B37.2 - Candidiasis of skin and nail (ICD-10) Polypharmacy ?Z79.899 - Other longitudinal float operator (current) drug therapy (ICD-10) Diabetes mellitus ?E11.9 - Type 2 diabetes mellitus without complications (ICD-10) Chronic hypoxic respiratory failure ?J96.11 - Chronic respiratory failure with hypoxia (ICD-10) Anemia in chronic kidney disease (CKD) ?N18.9 - Chronic kidney disease, unspecified (ICD-10) ?D63.1 - Anemia in chronic kidney disease (ICD-10) Chronic kidney disease (CKD), stage IV (severe) ?N18.4 - Chronic kidney disease, stage 4 (severe) (ICD-10) DISH (diffuse idiopathic skeletal hyperostosis) ?M48.10 - Ankylosing hyperostosis [[place]], site unspecified (ICD-10) Edema ?R60.9 - Edema, unspecified (ICD-10) Neuropathy ?G62.9 - Polyneuropathy, unspecified (ICD-10) Learning disability ?F81.9 - Developmental disorder of scholastic skills, unspecified (ICD-10) Insomnia ?G47.00 - Insomnia, unspecified (ICD-10) Metabolic syndrome ?E88.810 - Metabolic syndrome (ICD-10) Sensorineural hearing loss (SNHL) of both ears ?H90.3 - Sensorineural hearing loss, bilateral (ICD-10) Tinnitus ?H93.19 - Tinnitus, unspecified ear (ICD-10) Hypercholesterolemia ?E78.00 - Pure hypercholesterolemia, unspecified (ICD-10) Insulin dependent diabetes mellitus Recurrent deep vein thrombosis (DVT) ?I82.409 - Acute embolism and thrombosis of unspecified deep veins of unspecified lower extremity (ICD-10) Hypertension ?I10 - Essential (primary) hypertension (ICD-10) Coronary artery disease ?I25.10 - Atherosclerotic heart disease of [place] coronary artery without angina pectoris (ICD-10) Hypertriglyceridemia ?E78.1 - Pure hyperglyceridemia (ICD-10) Epilepsy ?G40.909 - Epilepsy, unspecified, not intractable, without status epilepticus (ICD-10) TASHI on CPAP ?G47.33 - Obstructive sleep apnea (adult) (pediatric) (ICD-10) ?Z99.89 - Dependence on other enabling machines and devices (ICD-10) Tachypnea ?R06.82 - Tachypnea, not elsewhere classified (ICD-10) Fever ?R50.9 - Fever, unspecified (ICD-10) CKD (chronic kidney disease) ?N18.9 - Chronic kidney disease, unspecified (ICD-10) Gout ?M10.9 - Gout, unspecified (ICD-10) Major depressive disorder ?F32.9 - Major depressive disorder, single episode, unspecified (ICD-10) Type 2 diabetes mellitus ?E11.9 - Type 2 diabetes mellitus without complications (ICD-10) Obesity ?E66.9 - Obesity, unspecified (ICD-10) Surgical History History of cholecystectomy ?Z90.49 - Acquired absence of other specified parts of digestive tract (ICD-10) Social History Narrative: Lives in a detention in [place], [place]. Sisters Brittany Suggs ([phone]) and Blanka Mcduffie ([phone]) listed as contacts and medical decision makers. Paperwork from detention indicates Full Code status. What is your current living situation?: I presently have a place to live Problems where you live: no known problems Problems where you live details: none In the past 12 months, utilities in danger of being shut off: no In past 12 months, lack of transportation kept you from medical appts, meetings, work, or getting things needed for daily living: no In the past 12 mos, have been you worried that your food would run out before you had money to buy more?: never true In the past 12 mos, the food you bought just didn't last and you didn't have money to buy more?: never true Highest level of school completed/degree received: 12th grade, no diploma Smoking Status: Never smoker Do you use any of these nicotine containing products: None Second hand tobacco smoke exposure: No How often do you have a drink containing alcohol: never How often do you have six or more drinks on one occasion: Never AUDIT-C Alcohol total score: 0 Non-prescribed substance use: denies use Caffeine: No How often does anyone, including family, friends and others, physically hurt you: never How often does anyone, including family, friends and others, insult or talk down to you: never How often does anyone, including family, friends and others, threaten you with harm: never How often does anyone, including family, friends and others, scream or curse at you: never service: No Exam Narrative: Exam Narrative: General: Well-developed and well-nourished, no acute distress, morbid obesity Head: Atraumatic and normocephalic Eyes: Pupils are equal reactive, extraocular motions intact, conjunctiva clear ENT: External nose and ears are normal, posterior pharynx without erythema or exudate Neck: No midline cervical tenderness, full spontaneous range of motion the neck, trachea midline, no adenopathy Heart: Regular rate and rhythm no murmurs or thrills Lungs: Trace crackles bilaterally Abdomen: Soft, nontender, nondistended with active bowel sounds Musculoskeletal: Mild Bilateral lower extremity edema to the knees, right leg circumference greater than left which patient says is chronic Neurologic: Awake, alert, and oriented x3, no gross focal neurologic deficits, cranial nerves intact as tested Psych: Mood and affect are appropriate Skin: No rashes Const: Vital Signs, click to edit/add: Vital Signs - 24 hr 01/30/25 20:59 01/30/25 23:06 Temperature 98.8 F 98.8 F Pulse Rate [Pulse Oximeter] 93 87 Respiratory Rate 22 20 Blood Pressure [Le ft Upper Arm] 139/53 L 180/58 H Pulse Oximetry 92 94 Oxygen Delivery Me thod Room Air Course Course ED Course: Reviewed most recent hospital admission from December 11 to December 15 when patient was admitted with exacerbation of heart failure, acute on chronic hypoxic respiratory failure, anticoagulated on Eliquis for history of DVT. Patient presents today with dyspnea on exertion for the last 2-3 days, also some chest pain with this. Denies cough, orthopnea, fever chills. On exam here, patient's vital is stable, oxygen saturation 92-95% on room air, crackles in the lungs bilaterally. Consider heart failure exacerbation, pneumonia, coronary syndrome. Labs ordered along with CT of the chest. Given asymmetric lower extremity swelling, PE study is ordered although patient is chronically anticoagulated. Reevaluation(s) Time of Reevaluation #1: 22:19 Reevaluation #1: Labs independently interpreted by me with normal CBC, normal venous blood gas, normal basic panel, negative troponin, normal BNP. CT scan of the chest independently interpreted by me with some bronchial wall thickening, and mosaic attenuation of the lungs. Time of Reevaluation #2: 22:48 Reevaluation #2: Patient recheck, he remains mildly hypoxic but otherwise vital is stable. DuoNeb was ordered due to findings on CT. Spoke with patient's nurse, foreign over CT scan lying down, patient became quite short of breath and diaphoretic with chest pain, resolved quickly after sitting up. Symptoms today are likely multifactorial, obesity hypoventilation syndrome with known CHF although normal BMP and no evidence for acute exacerbation on CT. Possible component of bronchitis, patient has no history of COPD. Solu-Medrol ordered, anticipate admission after repeat troponin. IMPRESSION: Limited evaluation secondary to body habitus and contrast bolus. No sign of pulmonary embolism to the level of the proximal segmental pulmonary arteries. Evaluation of the distal segmental and subsegmental branches is nondiagnostic. Mosaic attenuation throughout the lungs, likely related small vessel/airway disease, including bronchitis. No focal consolidations. Coronary artery calcifications. Time of Reevaluation #3: 23:16 Reevaluation #3: Care discussed with Eli the donna for observation pending repeat troponin. Repeat troponin in the panel interpreted by me 0.01. Patient is stable for admission. Vital Signs Vital signs: Initial Vital Signs Temperature 98.8 F 01/30/25 20:59 Temperature Source Temporal Artery Scan 01/30/25 20:59 Pulse Rate 93 01/30/25 20:59 Respiratory Rate 22 01/30/25 20:59 Blood Pressure 139/53 L 01/30/25 20:59 Blood Pressure Mean 81 01/30/25 20:59 Blood Pressure Position Supine 01/30/25 20:59 Pulse Oximetry 92 01/30/25 20:59 Vital Signs Temperature 98.8 F 01/30/25 20:59 Pulse Rate 93 01/30/25 20:59 Respiratory Rate 22 01/30/25 20:59 Blood Pressure 139/53 L 01/30/25 20:59 Pulse Oximetry 92 01/30/25 20:59 Temperature 98.8 F 01/30/25 23:06 Pulse Rate 87 01/30/25 23:06 Respiratory Rate 20 01/30/25 23:06 Blood Pressure 180/58 H 01/30/25 23:06 Pulse Oximetry 94 01/30/25 23:06 Oxygen Delivery Method Room Air 01/30/25 23:06 Medications Administered Medications: Generic Name Dose Route Start Last Admin Trade Name Kongq PRN Reason Stop Dose Admin Albuterol/Ipratropium 1 neb 01/30/25 22:22 01/30/25 22:29 Iprat-Albut 0.5-2.5 Mg/3 Ml Neb IH 01/30/25 22:23 1 neb ONCE ONE Administration Methylprednisolone Sodium Succinate 125 mg 01/30/25 22:46 01/30/25 23:04 Methylprednisolone Sod Succ 62.5 Mg/Ml (125) IVP 01/30/25 22:47 125 mg ONCE ONE Administration Medical Decision Making Lab Data Labs: Lab Results 01/30/25 01/30/25 01/30/25 Range/Units 21:15 21:25 23:15 WBC 4.41 L (4.50-11.00) K/uL RBC 4.16 L (4.30-5.90) m/uL Hgb 11.5 L (13.5-17.5) gm/dL Hct 36.4 L (37.0-53.0) % MCV 88 (80-100) fL MCH 28 (26-34) pg MCHC 32 (32-36) gm/dL RDW Coeff of Kaylen 14.7 (11.5-15.5) % Plt Count 157 (140-440) K/uL Neut % (Auto) 56.5 (42.0-72.0) % Lymph % (Auto) 28.1 (20-44) % Adams % (Auto) 8.2 (0.0-11.0) % Eos % (Auto) 6.3 (0.0-7.0) % Baso % (Auto) 0.7 (0.0-3.0) % Neut # (Auto) 2.50 (1.7-7.0) K/uL Lymph # (Auto) 1.20 (0.90-2.90) K/uL Adams # (Auto) 0.40 (0.00-0.90) K/UL Eos # (Auto) 0.30 (0.00-0.50) K/uL Baso # (Auto) 0.00 (0.00-0.30) K/uL Abs Immat Gran (auto) 0.00 (0.00-0.30) K/uL Imm/Tot Granulo (auto) 0.2 % VBG pH 7.414 (7.32-7.43) VBG pCO2 47 (40-50) mmHG VBG pO2 41.2 (25-47) mmHG VBG HCO3 30 H (21-28) mmol/L Sodium 142 (135-149) mmol/L Potassium 4.4 (3.6-5.1) mmol/L Chloride 107 (96-114) mmol/L Carbon Dioxide 29 (20-32) mmol/L Anion Gap 6 L (7-15) mEq/L BUN 26 (7-30) mg/dL Creatinine 1.3 (0.5-1.5) mg/dL Estimated Creat Clear 49.28 Estimated GFR 61 ml/min Glucose 91 (60-115) mg/dL Calcium 8.9 (8.4-10.6) mg/dL Magnesium 2.2 (1.5-2.6) mg/dL NT-Pro-B Natriuret Pep 259 (See Note) pg/mL POC Troponin I 0.00 L 0.01 (0.01-0.04) ng/ml Discharge Plan Discharge Clinical Impression: Exertional chest pain, Dyspnea on exertion, Small airways disease, Morbid obesity, Acute and chronic respiratory failure with hypoxia Patient Disposition: Admitted As Observation Procedures ABG Interpretation ABG Results: 01/30/25 21:15 VBG pH 7.414 VBG pCO2 47 VBG pO2 41.2 VBG HCO3 30 H
--- OUTSIDE RECORDS SUMMARY | 2025-01-30 20:56 | XMS_ITS | Clinical Summary ---
Author Organization [facility] Address [address] [place] [address] Phone Care Team Providers Care [employer] Dean Name Role Phone Mellisa Shirley PA-C Primary Care Provider [phone] Allergies Active Allergy Reactions Criticality Noted Date [...] 2 Active cholecalciferol (VITAMIN D-3) 1.25 MG (73716 UT) capsule Take 1,250 mcg by mouth [...] topic Insurance Medicaid [place] Medicare Care Teams [employer] Dean Relationship Specialty Start Date End Date Mellisa Shirley PA-C PCP - General Physician [employer] Electric[employer] 08/31/22
[2025-01-30 20:59] VITALS: BP 139/53; PULSE 93; RESP 22; TEMP 37.1; O2SAT 92; BMI 66.6
--- OUTSIDE RECORDS SUMMARY | 2025-01-30 21:02 | XMS_ITS | Clinical Summary ---
Author Organization [place] Address [address] [facility] [place] [address] Care Team Providers Care Package Handler Name Role Phone Services, [facility] Physician Primary Care Provi sadia Prince Tobar MD Unavailable Unava ilable Matilde Pérez PA-C Unavailable Torie Jimenez APRN RFID SYSTEMS ENGINEER Unavaila ble Reinaldo Beltran PA-C Unavailable Torie Jimenez APRN RFID SYSTEMS ENGINEER Unavaila ble Igor Trimble MD Unavailable Un available Allergies Active Allergy Reactions Criticality Noted Date [...] daily Active cholecalciferol (VITAMIN D3) 1250 mcg (85216 units) capsule Take 1,250 mcg by mouth every 7 days on Wednesdays. Active venlafaxine (EFFEXOR-XR) 75 MG 24 hr capsule Take 225 mg by mouth daily Active hydrALAZINE (APRESOLINE) 50 MG tablet Take 50 mg by mouth 4 times daily Active polyethylene glycol (MIRALAX) 17 GM/Dose powder Take 17 g by mouth daily Active nystatin (MYCOSTATIN) 475747 UNIT/GM external powder Apply topically 2 times [...] Next Due COVID-19 MONOVALENT 12+ (Pfizer) 06/25/2020,05/17 [id number] Novel Flu 05/07/2009 Hepatitis B, Adult (Energix-B/Recombivax [...] on file Legal Sex Male 3:35 AM TANK REFINISHER Gender Identity Not on file Sexual Orientation Choose not to disclose 2021 8:14 AM TANK REFINISHER Last Filed Vital Signs Vital Sign Reading Time Taken Comments Blood Pressure 118/75 06/19/2024 12:32 PM TANK REFINISHER Pulse 73 06/19/2024 12:32 PM TANK REFINISHER Temperature 36.6 C (97.8 F) 03/08/2024 7:44 AM CDT Respiratory Rate 16 03/07/2024 5:07 PM CDT Oxygen Saturation 95% 06/19/2024 12:32 PM TANK REFINISHER Inhaled Oxygen Concentration - - Weight 176.9 kg (390 lb) 06/19/2024 12:32 PM TANK REFINISHER Height 170.2 cm (5' 7) 06/19/2024 12:32 PM TANK REFINISHER Body Mass Index 61.08 06/19/2024 12:32 PM TANK REFINISHER Plan of Treatment Upcoming Encounters Date Type Department Care Team (Late st Contact Info) Description 05/02/2025 1:15 PM TANK REFINISHER Office Visit [facility] [address] [place] [address] Stephanie Conn MD [address] [facility] [address] [place], [place] [id number] Igor Trimble MD Health Maintenance Due Date [...] 02/02/2023, 11/11/2021, 09/03/2020 COVID-19 VACCINE ( season) 2025 04/17/2024, 06/02/2023, 04/03/2022, Additional history exists INFLUENZA VACCINE (#1) 2025 , 06/02/2023, 04/03/2022, Additional history exists A1C 03/27/2025 12/25/2024, 04/2 09/2024, 10/15/2023, Additional history exists LIPID 05/15/2025 05/15/2024 BMP 12/25/2025 12/25/2024, 04/2 09/2024, 05/15/2024, Additional history exists ADVANCE CARE PLANNING 06/02/2026 06/02/2021 DTAP/TDAP/TD VACCINE (3 - Td or Tdap) 02/13/2032 02/12/2022, 05/07/2009 ZOSTER VACCINE Completed 03/24/2022, 11/04/2021 PHQ-2 (once per calendar year) Completed 06/19/2024 HPV VACCINE (No Doses Required) Completed MENINGITIS VACCINE Aged Out No longer eligible based on patient's age to complete this topic Procedures Procedure Name Priority Date/Time Associated Diagnosis Comments HEMOGLOBIN A1C Routine 12/25/2024 9:00 AM CDT Type 2 diabetes mellitus with diabetic polyneuropathy (H) Hypokalemia Hypertensive heart disease without heart failure BASIC METABOLIC PANEL Routine 12/25/2024 9:00 AM CDT Type 2 diabetes mellitus with diabetic polyneuropathy (H) Hypokalemia Hypertensive heart disease without heart failure LIPID PROFILE Routine 05/15/2024 11:20 AM TANK REFINISHER Type 2 diabetes mellitus with other specified complication (H) Hypokalemia 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 Blood STRUCTURE OF RIGHT UPPER LIMB / Unknown Client Draw / Unknown 12/25/2024 9:00 AM CDT 12/25/2024 10:48 AM CDT us Harrison Munson NP LAB - BLOOD ORDERABLES Final Result LABORATORY [facility] [address] Lab (1st floor, no room number) [place] [address], [facility] * (ABNORMAL) Basic metabolic panel (12/25/2024 9:00 AM CDT) Sodium 138 135 - 145 mmol/L 12/25/2024 11:16 AM CDT LABORATORY Potassium 4.0 3.4 - 5.3 mmol/L 12/25/2024 11:16 AM CDT LABORATORY Chloride 98 98 - 107 mmol/L 12/25/2024 11:16 AM CDT LABORATORY Carbon Dioxide (CO2) 26 22 - 29 mmol/L 12/25/2024 11:16 AM CDT LABORATORY Anion Gap 14 7 - 15 mmol/L 12/25/2024 11:16 AM CDT LABORATORY Urea Nitrogen 24.9(H) 8.0 - 23.0 mg/dL 12/25/2024 11:16 AM CDT LABORATORY Creatinine 1.36(H) 0.67 - 1.17 mg/dL 12/25/2024 11:16 AM CDT LABORATORY GFR Estimate 58(L) >60 mL/min/1.7 3m2 12/25/2024 11:16 AM T LABORATORY Comment:eGFR calculated usin g 2020 CKD-EPI equation. Calcium 9.0 8.8 - 10.4 mg/dL 12/25/2024 11:16 AM T LABORATORY Glucose 363(H) 70 - 99 mg/dL 12/25/2024 11:16 AM T LABORATORY Blood STRUCTURE OF RIGHT UPPER LIMB / Unknown Client Draw / Unknown 12/25/2024 9:00 AM CDT 12/25/2024 10:48 AM CDT us Harrison Munson NP LAB - BLOOD ORDERABLES Final Result LABORATORY [facility] [address] Lab (1st floor, no room number) [place] [address], [facility] * (ABNORMAL) Lipid Profile (05/15/2024 11:20 AM TANK REFINISHER) Cholesterol 116 <200 mg/dL 05/15/2024 6:03 PM TANK REFINISHER [facility] Triglycerides 575(H) <150 mg/dL 05/15/2024 6:03 PM TANK REFINISHER [facility] Direct Measure HDL 28(L) >=40 mg/dL 05/15/2024 6:03 PM TANK REFINISHER [facility] LDL Cholesterol Calculated 05/15/2024 6:03 PM TANK REFINISHER [facility] Comment:Cannot estimate LDL when triglyceride exceeds 400 mg/dL Non HDL Cholesterol 88 <130 mg/dL 05/15/2024 6:03 PM TANK REFINISHER [facility] Patient Fasting > 8hrs? No 05/15/2024 6:03 PM TANK REFINISHER [facility] Blood BLOOD SPECIMEN / Unknown Client Draw / Unknown 05/15/2024 11:20 AM TANK REFINISHER 05/15/2024 12:53 PM TANK REFINISHER Narrative [facility] - 05/15/2024 6:03 PM TANK REFINISHER Cholesterol Desirable: < 200 mg/dL Borderline High: [...] - BLOOD ORDERABLES Final Result [facility] [address] [facility] [place] [address], [place] LABORATORY [facility] [address] Lab (1st floor, no room number) [place] [address], [facility] from Last 3 Months or Most Recently Relevant to Health Maintenance Insurance [place] Advance Directives For more information, please contact: [phone] Documents on File Type Date Recorded Patient Car Coupler Expl anation Advance Directives and Living Will [...] patie nt/ legal decision maker Care Teams Package Handler Relationship Specialty Start Date End Date Services, [facility] Physician [address] [place] [id number] PCP - General 05/22/21 Prince Tobar MD [address] [place] [phone] Cardiovascular Disease 03/26/22 Matilde Pérez PA-C [address] [place] [id number] Physician Cafeteria Aide Physician Cafeteria Aide - Surgical 12/30/23 Torie Jimenez APRN RFID SYSTEMS ENGINEER [address] [place] [address] [phone] Nurse Practitioner Colon & Rectal 03/17/24 Reinaldo Beltran PA-C [facility] [place] [address] [address] Physician Cafeteria Aide Emergency Medicine 03/17/24 Torie Jimenez APRN RFID SYSTEMS ENGINEER [address] [place] [address] [id number] Assigned Surgical Provider 07/09/24 Igor Trimble MD Cardiovascular Disease 12/13/24
--- OUTSIDE RECORDS SUMMARY | 2025-01-30 21:03 | XMS_ITS | Clinical Summary ---
Author Organization [facility] Address Formerly [facility] [place] [address] Care Team Providers Care Aircraft Engineer Name Role Phone Alan Lopez MD Unavailable Pcp, No Primary Care Provider Unavailabl e Jessa Webster MD Unavailable [phone] Allergies Active Allergy Reactions Criticality Noted [...] X1; 1 unit 6 02/11/20 18 Active CPAPIndications:O SA (obstructive sleep apnea) CPAP machine for home use at pressure: 15 cm/h2O , Heated humidifier x 1, Humidifier chamber x 1, 1 unit 11 05/19/19 19 Active nitroglycerin (NITROSTAT) 0.4 mg sublingual tabletIndications :Chest pain in adult Place 1 tablet under the tongue every 5 minutes if needed for Chest Pain. 1 Bottle 08/03/19 19 Active Insulin Syringes, Disposable, 1 mLIndications:Oth er [...] Each 3 11/03/19 19 Active medication order composerIndicatio ns:Chronic edema Compression stockings, size large, full calf, level 20/30 mmhg 2 Package 11/04/19 19 Active compr.stocking,kn ee,long,large (COMP STOCKING,KNEE,LOIDA G,LARGE)Indicatio ns:Insulin dependent diabetes mellitus,Diabetic polyneuropathy associated with type 2 diabetes mellitus (HC),Chronic edema JOBST #[id number] LRG FULL CALF KNEE BLACK 20-30 COMPRESSION 2 Package 11/27/19 19 Active lancets (TRUEPLUS LANCETS) 30 gauge miscIndications:T [...] extended release tablet 24 HourIndications:C AD in [place] artery Take 1 tablet by mouth once [...] unit capsule 3 Times Weekly Ac tive ezetimibe-atorvas tatin 10-10 mg tab Daily 03/07/20 Active hydrALAZINE (APRESOLINE TABLET) 50 mg tablet four times daily 03/07/20 Active spironolactone (ALDACTONE) 50 mg tablet Twice A Day Active semaglutide (Ozempic) 2 mg/dose (8 mg/3 mL) subcutaneous penIndications:Ty pe 2 diabetes mellitus with diabetic nephropathy, with long-term current use of insulin (HC) Inject 2 mg subcutaneous once weekly. 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 Pt uses 10 x diakly 300 Each 3 09/05/19 25 Active pioglitazone 30 mg tabletIndications :Type 2 diabetes mellitus with diabetic nephropathy, with long-term current use of insulin (HC) Take 1 Tablet (30 mg) by mouth once daily. 90 Tablet 2 11/11/19 25 Active Humulin R 500 unit/mL injectionIndicati ons:Type 2 diabetes mellitus with diabetic nephropathy, with long-term current use of insulin (HC) Inject SC Humulin U500 insulin 140 with breakfast, 140 units with lunch and 160 units with supper, slowly titrate to TDD 400units 24 mL 3 01/02/20 25 Active spironolactone 25 mg tabletIndications :Hypertension 2 TABLETS (50MG) BY MOUTH ONCE DAILY 56 Tablet 12 01/09/20 25 Active Jardiance 10 mg tabletIndications :Type 2 diabetes mellitus without complication, without long-term current use of insulin (HC) 1 TABLET BY MOUTH ONCE DAILY 28 Tablet 12 01/09/20 25 Active insulin NPH human isophane (HUMULIN N PEN SUBQ) Inject 85 units subcutaneous. Pt.got it this morning. 025 Discontin ued(*Med complete/ Regimen complete/ Level of care change) insulin U-500 syringe-needle 1/2 mL 31 gauge x 15/64 syrgIndications:T ype 2 diabetes mellitus with diabetic nephropathy, with long-term current use of insulin (HC) As directed. Use 3 daily 300 Each 3 05/30/19 25 025 Discontin ued(*Med complete/ Regimen complete/ Level of care change) Humulin R 500 unit/mL injectionIndicati ons:Type 2 diabetes mellitus with diabetic nephropathy, with long-term current use of insulin (HC) Inject SC Humulin U500 insulin 140 with breakfast, 140 units with lunch and 160 units with supper, slowly titrate to TDD 400units 24 mL 3 11/11/19 25 025 Discontin ued(Reord er (E-cancel not sent)) Lantus Solostar U-100 Insulin 100 unit/mL (3 mL) penIndications:Ty pe 2 diabetes mellitus without complication, with long-term current use of insulin (HC) Inject 50 units subcutaneous two times daily. Lantus insulin medically necessary 30 mL 11 12/21/19 025 Discontin ued(*Med complete/ Regimen complete/ Level of care change) insulin glargine-yfgn (U-100) (SEMGLEE) 100 unit/mL (3 mL) penIndications:Ty pe 2 diabetes mellitus without complication, without long-term current use of insulin (HC) Inject 50 units subcutaneous 2 times daily at 8 AM and 10 PM. 30 mL 2 01/02/20 25 025 Discontin ued(*Med complete/ Regimen complete/ Level of care change) insulin glargine-yfgn (U-100) (SEMGLEE) 100 unit/mL (3 mL) penIndications:Ty pe 2 diabetes mellitus without complication, without long-term current use of insulin (HC) Inject 50 units subcutaneous 2 times daily at 8 AM and 10 PM. 30 mL 2 12/26/19 25 025 Discontin ued(*Med complete/ Regimen complete/ Level of care change) Active Problems Problem Noted Date Diagnosed Date [...] at 10 am and no showed. RN Power Lineman, Juanita Yoo, notified and she will attempt [...] No, referral made to Advance Care Plan Silverware Supervisor. Patient has identified Specific Treatment Preferences: No Sophia Méndez RN .................... 07/06/2011 2:30 PM] Specific limits to treatment preferences NOT identified: ASSUME FULL TREATMENT. Assessment & Plan (05/25/2012 12:51 PM SERVICE DESK DIRECTOR): Advance Care Planning: Disease-specific Session Skylar Mccarthy is a [facility] patient. His PCP is Leandra Limon at [facility]. Advance care planning discussions were completed with Skylar. He identified his sister, Brittany Suggs, as his healthcare agent. Brittany was not present for ACP session. Understanding of Illness and Disease [place]: Skylar identifies his medical condition as what ain't [...] just don't feel well. Goals of Care: Skylar currently hopes to maintain independence, control pain and symptoms, delay progression of, but not cure, the illness, have comfort cares and with dignity. Skylar prefers to remain home with services and is open to Home Care and/or Hospice when/if appropriate. Quality of Life: The following present and future experiences are most important for Skylar to live well: Daily visit to local [place] for a pop and to visit and catch up in the news with locals. Skylar obed with serious challenges in his life: Support of his sister, only a phone call away. 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 Skylar identifies the following fears and worries about [...] home. As a result of these experiences, Skylar expresses these health care preferences: Summary Skylar's Treatment Preferences: LOW SURVIVAL; HIGH TREATMENT BURDEN: If Skylar suffered a serious complication, such that he was facing a prolonged hospital stay, required ongoing medical interventions, and the chance of living through the complication was low (for example, only 5 out of 100 would live), Skylar would choose: to focus treatment on comfort and quality of life (Quality of life is more important than length of life to Skylar.) Limited trial of 2 months of all medical treatments to determine possibility of returning to previous state. If not improving, discontinue all treatments. HIGH SURVIVAL; LOW FUNCTIONAL STATUS: If Skylar had a serious complication and had a good chance of living through the complication but it was expected that he would never be able to walk or talk again and would require 24 hour nursing care, he would choose: to focus treatment on comfort and quality of life (Quality of life is more important than length of life to Skylar.) Limited trial of oral antibiotics only. HIGH SURVIVAL; LOW COGNITIVE STATUS: If Skylar had a serious complication and had a good chance of living through the complication but it was expected that he would never know who he was or who he was with and would require 24 hour nursing care, he would choose: to focus treatment on comfort and quality of life (Quality of life is more important than length of life to Skylar.) Limited trial of oral antibiotics only. CARDIO-PULMONARY RESUSCITATION (CPR): The facts, risks and benefits of CPR were discussed with Skylar. If he had a sudden event that caused his heart and breathing to stop, he: WOULD NOT want CPR attempted and instead would prefer that a natural occur. MECHANICAL VENTILATION: If Skylar had an episode where he was unable to breathe on his own, he would choose the following: attempt to use any appropriate non-invasive method to assist breathing, and limited trial up to 2 months, use mechanical ventilation. If not able to return to previous state, discontinue mechanical ventilation. Skylar has chosen his healthcare agent to: do what she thinks is best at the time, considering Skylar's wishes. Follow Up Plan: Skylar was encouraged to continue advance care planning discussions with his Designated Health Care Agent: Brittany Suggs and primary care provider. Hard Choices for [employer] booklet was sent to Skylar and his health care agent for review. Skylar requested all information be mailed to his sister and sign writer hand to place call to sister to explain process. Skylar identified the following concerns during his advance care planning session: needing assistance at home to ensure he is managing his medications and treatments to keep going as is and stabilizing. Is followed by Clinic Non Licensed Nuclear Equipment Operator for needed services. Questions identified for his primary care provider: none Documents addressed during this advance care planning session: Health Care Directive completed and scanned into medical record. Statement of Treatment Preferences for advanced illness completed and scanned into the medical record. Recommendations/Plan: Peter to review Advance Care Plan with Skylar's healthcare agent. Caravan Park And Camping Ground Manager will be contacting Skylar's [facility] to explain services rendered, Skylar would benefit from: Home Care and/or Hospice when / if appropriate. [facility] services involved, sister supports coordination of medical asistance. Care Management- currenlty enrolled in Medical Home. Care Navigation Help Desk- other needed resources. Care Navigation, Hospice Care and Home Care brochure(s) were given to Skylar and/or his healthcare agent. Advance Care Planning recommendations and Skylar's concerns and questions were cc e d [...] 2:27 PM Sophia Méndez RN RN Clinic Non Licensed Nuclear Equipment Operator - [facility] [phone] Vitamin D deficiency 01/06/2011 011 Neuropathy 09/25/2010 [...] Encounters Date Type Department Care Team Description 01/23/2025 Telephone [facility] [address] [facility] [address] [place] [address] Jessa Webster MD Refill Request 01/17/2025 Transcribe Orders [facility] [place] [phone] Harrison Munson DNP 01/05/2025 Refill [facility] [address] [place] [address] Jessa Webster MD Refill Request (Spironolactone, Jardiance) 01/02/2025 Orders Only [facility] [address] [address] Jessa Webster MD <No scans attached> 01/01/[address] [address] Jessa Webster MD Questions 01/01/2025 Orders Only [address] [address] Jessa Webster MD <No scans attached> 12/28/[address] [address] Jessa Webster MD Prior Authorization (insulin glargine-yfgn (U-100) (SEMGLEE) 100 unit/mL (3 mL) pen - PA NOT NEEDED ) 12/27/[address] [address] Jessa Webster MD Medication Management (insulin glargine-yfgn (U-100) (SEMGLEE) 100 unit/mL (3 mL) pen) 12/26/[address] [address] Jessa Webster MD Medication Management 12/25/[address] [address] Jessa Webster MD Need Meds 12/22/2024 Orders Only [address] [address] Jessa Webster MD <No scans attached> 12/20/[address] [address] Jessa Webster MD Prior Authorization (Lantus Solostar U-100 Insulin 100 unit/mL (3 mL) pen - DENIED) 12/20/2024 Orders Only [facility] [address] [address] Jessa Webster MD <No scans attached> 12/19/2024 Telephone [facility] [address] [place] [address] Jessa Webster MD 12/12/2024 1:00 PM CDT Ancillary Procedure [facility] [address] [place] [address] 11/10/2024 8:50 AM CDT Telemedicine [address] [address] Jessa Webster MD Telehealth (No vitals taken); Diabetes 11/10/2024 Telephone [facility] [address] [address] Jessa Webster MD Other from Last 3 [...] on file Legal Sex Male 5:24 AM SERVICE DESK DIRECTOR Gender Identity Not on file Sexual Orientation Not on file Obstetrics History Last Filed Vital Signs Vital Sign Reading Time Taken Comments Blood Pressure 130/50 05/26/2024 4:05 PM SERVICE DESK DIRECTOR Pulse 71 05/26/2024 4:05 PM SERVICE DESK DIRECTOR Temperature 36 C (96.8 F) 08/19/2022 1:41 PM CDT Respiratory Rate 16 08/19/2022 2:23 PM CDT Oxygen Saturation 92% 05/26/2024 4:05 PM SERVICE DESK DIRECTOR Inhaled Oxygen Concentration - - Weight 177.8 kg (392 lb) 05/26/2024 4:05 PM SERVICE DESK DIRECTOR Height 167.6 cm (5' 6) 07/14/2022 6:10 PM SERVICE DESK DIRECTOR Body Mass Index 63.27 07/14/2022 6:10 PM SERVICE DESK DIRECTOR Plan of Treatment Upcoming Encounters Date Type Department Care Team (Late st Contact Info) Description 02/12/2025 9:40 AM CDT Telemedicine [facility] [address] [id number] [place] [address] [place], [place] [id number] Health Maintenance Due Date Last Done Comments [...] for age 65+ 09/13/2024 COVID-19 vaccine series (2023- season) 2025 04/17/2024, 06/02/2023, 04/03/2022, Additional history exists Influenza [...] Kay [employer] Medical Devices Implanted Type Area Cutter Operator Asbestos Shingle Device Identifier Shelf Expiration Date Model / Serial / Lot Iol Millard +20 [employer]ecnis Zcb00 - [id number] Implanted:Qty: 1 on 07/15/2022 by Tanner Fuentes MD at [facility] Left: Eye [employer] 06/24/2025 ZCB00 20.0 / [id number] / Iol Millard +20 Tecnis Zcb00 - [id number] Implanted:Qty: 1 on 08/19/2022 by Tanner Fuentes MD at [facility] Right: Eye [employer] 06/24/2025 ZCB00 20.0 / [id number] / Procedures Procedure Name Priority Date/Time Associated Diagnosis Comments ECHO TTE LIMITED W CONTRAST W COLOR W DOPPLER Routine 12/12/2024 1:38 PM CDT Acute exacerbation of CHF (congestive heart failure) (HC) Elevated troponin LIPID PANEL Routine 03/13/2019 2:31 PM CDT Essential hypertriglyceridemia from Last 3 Months or Most Recently Relevant to Health Maintenance Results * ECHO TTE LIMITED W CONTRAST W COLOR W DOPPLER (12/12/2024 1:38 PM CDT) AORTIC VALVE MEAN PG 7 mmHg Anatomical Region Laterality Modality Ultrasound 12/12/2024 12:5 5 PM CDT Narrative 12/12/2024 2:18 PM CDT ECHOCARDIOGRAM SKYLAR MCCARTHY : 1960 64 years Study Date: 12/12/2024 12:55:06 PM Gender: M BP: 138/56 mmHg Height: 163.00 cm BSA: 2.68 m Weight: 189.00 kg Tech: [facility] Referring MD: LINDA ARCEO Site: [facility] Reading Location: Mobile- Patient Location: Inpatient. Procedure: Limited Echo w/ Contrast, Limited 2D , Color Doppler and Limited Spectral Doppler. Indication for study: Acute exacerbation of CHF (congestive heart failure) (HC); Elevated troponin Cardiac Rhythm: Sinus tachycardia.Study quality: Technically limited. Imaging limitations: This study was subject to imaging limitations due to body habitus and a prominent lung artifact. Final Impressions: Limited Echocardiogram performed 1. Technically limited exam. 2. In limited contrast images, LVEF appears preserved. Study quality and poor endocardial border definition prevents accurate assessment of LVEF and wall motion. 3. Echo contrast was administered to enhance visualization of all left ventricular segments. Comparison Compared to prior exam of 10/22/2017, accurate comparison difficult due to poor image quality but LVEF appears normal. Chamber Sizes and Function Right ventricular cavity size is not well visualized. Valves, RV Pressures and Diastolic Function The aortic valve is not well visualized , no stenosis. The mitral valve is not well visualized, trace mitral regurgitation. The tricuspid valve is not well visualized, trace tricuspid regurgitation. The pulmonic valve is not well visualized. Masses, Effusion, Shunts There is no pericardial effusion. MEASUREMENTS AND CALCULATIONS 2-D Measurements and LV Function: Ao Sinus ULN 4.2 cm * HR 104 bpm Asc Ao ULN 4.2 cm * * Input BSA outside of range, reported values correspond to BSA = 2.1 Aortic Valve: Vmax 2.0 m/s Max PG 16 mmHg VTI 0.33 m Mean PG 7 mmHg LVOT V max 1.1 m/s Dim Index 0.66 LVOT VTI 0.22 m Contrast documentation: 2 ml diluted Definity, lot #[id number], [facility]# [id number] was administered peripherally to enhance visualization of all left ventricular segments. . This study was interpreted by an [facility] accredited facility. CC: [facility] (med records) [facility], Med/Surg - IP [facility]. Final Procedure Note Stu Eli MD - 12/12/2024 ECHOCARDIOGRAM SKYLAR MCCARTHY : 1960 64 years Study Date: 12/12/2024 12:55:06 PM Gender: M BP: 138/56 mmHg Height: 163.00 cm BSA: 2.68 m Weight: 189.00 kg Tech: JENSEN Referring MD: LINDA ARCEO Site: [facility] Reading Location: Mobile-IP Patient Location: Inpatient. Procedure: Limited Echo w/ Contrast, Limited 2D , Color Doppler andLimited Spectral Doppler. Indication for study: Acute exacerbation of CHF (congestive heart failure)(HC); Elevated troponin Cardiac Rhythm: Sinus tachycardia.Study quality: Technically limited. Imaging limitations: This study was subject to imaging limitations due tobody habitus and a prominent lung artifact. Final Impressions: Limited Echocardiogram performed 1. Technically limited exam. 2. In limited contrast images, LVEF appears preserved. Study quality andpoor endocardial border definition prevents accurate assessment of LVEFand wall motion. 3. Echo contrast was administered to enhance visualization of all leftventricular segments. Comparison Compared to prior exam of 10/22/2017, accurate comparison difficult due topoor image quality but LVEF appears normal. Chamber Sizes and Function Right ventricular cavity size is not well visualized. Valves, RV Pressures and Diastolic Function The aortic valve is not well visualized , no stenosis. The mitral valve isnot well visualized, trace mitral regurgitation. The tricuspid valve isnot well visualized, trace tricuspid regurgitation. The pulmonic valve isnot well visualized. Masses, Effusion, Shunts There is no pericardial effusion. MEASUREMENTS AND CALCULATIONS 2-D Measurements and LV Function: Ao Sinus ULN 4.2 cm * HR104 bpm Asc Ao ULN 4.2 cm * * Input BSA outside of range, reported values correspond to BSA = 2.1 Aortic Valve: Vmax 2.0 m/s Max PG 16 mmHg VTI 0.33 m Mean PG 7 mmHg LVOT V max 1.1 m/s Dim Index 0.66 LVOT VTI 0.22 m Contrast documentation: 2 ml diluted Definity, lot #[id number], [facility]#[id number] was administered peripherally to enhance visualization of allleft ventricular segments. . This study was interpreted by an [facility] accredited facility. CC: [facility] (med records) [facility], Med/Surg - IP [facility]. Final us Linda Arceo MD ECHO ORD Final Resu lt * (ABNORMAL) LIPID PANEL (03/13/2019 2:31 PM CDT) CHOLESTEROL,TOTAL 193 100 - 199 mg/dL 03/13/2019 9:25 PM CDT [facility] TRIGLYCERIDES 715(H) <150 mg/dL 03/13/2019 9:[address] [facility] HDL CHOLESTEROL 29(L) >40 mg/dL 9 9:25 PM CDT [facility] NON-HDL CHOLESTEROL 164(H) <145 mg/dl 03/13/2019 9:25 PM CDT [facility] CHOL/HDL RATIO 6.66(H) <4.50 03/13/2019 9:25 PM CDT [facility] LDL CHOLESTEROL 9 9:25 PM CDT [facility] Comment:Invalid LDL when Tri g >400. PROVIDER ORDERED STATUS RANDOM 03/13/2019 9:25 PM CDT [facility] [employer] LABORATORY-[facility] Blood BLOOD SPECIMEN / Unknown Venipuncture / Unknown 03/13/2019 2:31 PM CDT 03/13/2019 2:31 PM CDT us Suellen Sosa MD CHEMISTRY Final Resul t [facility] [employer] [facility] 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 PCP - General 07/15/22 Alan Lopez MD Internal Medicine Internal Medicine 11/20/10 [place] [address] [place] [address] Endocrinology Endocrinology 05/26/24
--- NOTE | 2025-01-30 21:05 | CRLHL7_ITS ---
For Patients: As a result of the Century Cures Act, medical imaging exams and procedure reports are released immediately into your electronic medical record. You may view this report before your referring provider. If you have questions, please contact your health care provider. INDICATION: Dyspnea. TECHNIQUE: CT chest PE was acquired with 95 cc Isovue 370 IV contrast. MIP reconstructions were performed. COMPARISON: December 11, 2024. FINDINGS: Heart and vasculature: Limited evaluation secondary to body habitus and contrast bolus. No sign of pulmonary embolism to the level of the proximal segmental pulmonary arteries. Evaluation of the distal segmental and subsegmental branches is nondiagnostic. Heart size is normal. Coronary artery calcifications. Thoracic aorta and pulmonary artery are normal in caliber. Lungs and pleura: Mosaic attenuation throughout the lungs. No suspicious nodules or infiltrates. No significant pleural effusions, pleural thickening, or pneumothorax. Lymph nodes/mediastinum: No mediastinal, hilar, or axillary adenopathy. Chest wall: No masses. Upper abdomen: No acute or significant findings. Bones: Unremarkable for age. IMPRESSION: Limited evaluation secondary to body habitus and contrast bolus. No sign of pulmonary embolism to the level of the proximal segmental pulmonary arteries. Evaluation of the distal segmental and subsegmental branches is nondiagnostic. Mosaic attenuation throughout the lungs, likely related small vessel/airway disease, including bronchitis. No focal consolidations. Coronary artery calcifications. Please note that all CT scans at this facility use dose modulation, iterative reconstruction, and/or weight-based dosing when appropriate to reduce radiation dose to as low as reasonably achievable. Dictated by Mack Zuniga MD @ 01/30/2025 10:43:19 PM (Electronically Signed)
[2025-01-30 21:22] LABS: HCO3 VBG 30 mmol/L (21-28); PCO2 VBG 47 mmHG (40-50); PO2 VBG 41.2 mmHG (25-47); pH VBG 7.414 (7.32-7.43)
[2025-01-30 21:25] LABS: Hematocrit* 36.4 % (37.0-53.0); Hemoglobin* 11.5 gm/dL (13.5-17.5); Immature Granulocytes Pct Auto 0.2 %; Mean Corpuscular HGB Conc 32 gm/dL (32-36); Mean Corpuscular Hemoglobin 28 pg (26-34); Mean Corpuscular Volume 88 fL (80-100); RDW Coefficient of Variation % 14.7 % (11.5-15.5); Red Blood Count* 4.16 m/uL (4.30-5.90); White Blood Count* 4.41 K/uL (4.50-11.00)
[2025-01-30 21:27] LABS: Immature Granulocytes Abs Auto 0.00 K/uL (0.00-0.30); Lymphocytes Absolute Auto 1.20 K/uL (0.90-2.90); Slide Review Reflex No
[2025-01-30 21:34] LABS: Troponin, Point-of-Care* 0.00 ng/ml (0.01-0.04)
[2025-01-30 21:36] LABS: Chloride* 107 mmol/L (96-114); Sodium* 142 mmol/L (135-149)
[2025-01-30 21:37] LABS: Potassium* 4.4 mmol/L (3.6-5.1)
[2025-01-30 21:40] LABS: Anion Gap 6 mEq/L (7-15); Blood Urea Nitrogen* 26 mg/dL (7-30); Calcium* 8.9 mg/dL (8.4-10.6); Carbon Dioxide* 29 mmol/L (20-32); Creatinine* 1.3 mg/dL (0.5-1.5); Est. Creatinine Clearance* 49.28; Estimated Glomerular Filt Rate 61 ml/min; Glucose* 91 mg/dL (60-115)
[2025-01-30 21:50] LABS: NT Pro B Type NatriureticPept* 259 pg/mL (See Note)
--- OUTSIDE RECORDS SUMMARY | 2025-01-30 21:53 | XMS_ITS | CCD ---
Author Organization Unknown Care Team Providers Care Presales Consultant Name Role Phone Harrison Durham Primary Care Provider Leona vailable Unavailable Chronic Care Management Unavaila ble Summary Purpose DataExchange Insurance Providers Payer name Policy type / Coverage type Covered democrat ID Effective Begin Date Effective End Date [place] Part B [id number] Unknown Unknown Medicaid [place] Medicare Part B [id number] Unknown Unknown Family history Sister Brittany Suggs [...] on file 07/11/[address]: 127881039 Never smoker 01/16 Sexually Active? Unknown No [...] Unknown [facility] 09/03/[address]: 295479803 No Alcohol Consum ption 09/02/2020 Allergies, Adverse Reactions, Alerts Substance Reaction Codes Entered Date Inactivated Date Status * NO KNOWN FOOD ALLERGIES Unknown 07/13/2023 No Inactive Date Active LISINOPRIL RxNorm: 61082 02/12/2020 No Inactive Da te Active Metformin HCl Unknown 02/12/2020 No Inactive Cristiano e Active * NO KNOWN ENVIRONMENTAL ALLERGIES Unknown 07/13/2023 No Inactive Date Active Problems Condition Codes Effective Dates Condition St atus CKD stage 3a, GFR 45-59 ml/min SNOMED CT : 677593903 ICD-10: N18.31 ICD-9: 585.3 01/09/2025 Active Hypertensive heart disease without heart failure ICD-10: I11.9 ICD-9: 402.90 01/09/2025 Active Onychogryposis ICD-10: L60.2 ICD-9: 703.8 01/09/2025 Active Type 2 diabetes mellitus wit h diabetic chronic kidney disease ICD-10: E11.22 ICD-9: 250.40 01/09/2025 Active Body mass index [BMI] 60.0-69.9, adult ICD-10: Z68.44 ICD-9: V85.44 12/21/2024 Active History of recent hospitalization SNOMED CT: 490549752 ICD-10: Z92.89 ICD-9: V13.9 12/21/2024 Active Hypokalemia ICD-10: E87.6 ICD-9: 276.8 12/21/2024 Active Mixed incontinence SNOMED CT: 62017003 ICD-10: N39.46 ICD-9: 788.33 12/21/2024 Active TASHI (obstructive sleep apnea) SNOMED CT: 50147045 ICD-10: G47.33 ICD-9: 327.23 12/21/2024 Active Type 2 diabetes mellitus wit h diabetic polyneuropathy, with long-term current use of insulin ICD-10: E11.42 ICD-9: 250.60 12/21/2024 Active Candidal intertrigo ICD-10: B37.2 ICD-9: 112.3 12/12/2024 Active Pulmonary nodule ICD-10: R91.1 ICD-9: 793.11 12/12/2024 Active 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 ICD-10: K59.01 ICD-9: 564.01 11/07/2024 Active Loose stools ICD-10: R19.5 ICD-9: 787.7 11/07/2024 Active Paraparesis of both lower limbs ICD-10: G82.20 ICD-9: 344.1 11/07/2024 Active Seizure disorder ICD-10: G40.909 ICD-9: 345.90 11/07/2024 Active Amputated toe of right foot ICD-10: S98. 131A ICD-9: 895.0 10/10/2024 Active Hypercoagulable state ICD-10: D68.59 ICD-9: 289.81 10/10/2024 Active Lower extremity edema ICD-10: R60.0 ICD-9: 782.3 10/10/2024 Active Major depression, recurrent ICD-10: F33. 9 ICD-9: 296.30 10/10/2024 Active Recurrent major depressive disorder, in partial remission ICD-10: F33.41 ICD-9: 296.35 10/10/2024 Active Pressure ulcer of left calf, unstageable ICD-10: L89.890 ICD-9: 707.09 10/10/2024 Resolved Diabetic neuropathy associat ed with type 2 diabetes mellitus ICD-10: E11.40 ICD-9: 250.60 07/11/2024 Active Hemorrhoids ICD-10: K64.9 ICD-9: 455.6 07/11/2024 Active PVD (peripheral vascular disease) ICD-10: I73.9 ICD-9: 443.9 07/11/2024 Active Hyperlipidemia associated wi th type 2 diabetes mellitus ICD-10: E11.69 ICD-9: 250.80 06/13/2024 Active Advance care planning ICD-10: Z71.89 [...] E78. 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 Other director long term care (current) dr [...] 701.9 09/07/2023 Resolved Coronary artery disease involving [place] coronary [...] half-way (current) use of insulin ICD-10: Z79.4 02/10/2022 [...] Fill Instructions pregabalin 150 mg capsule RxNorm: 282966 1 CAPSULE BY MOUTH AT BEDTIME (DX: NEUROPATHY) 01/13/20 25 026 Active PLEASE SEND NEW RX, PATIENT IS ALMOST OUT. THANKS! clotrimazole 1 % topical cream RxNorm: 315169 apply one application to affected and surrounding area(s) of skin BID until clinical resolution (abdominal and thigh folds), typically 1-4 weeks.Pause nystatin powder use while using clotrimazole cream. 01/03/20 25 025 Active clotrimazole 1 % topical cream RxNorm: 158637 apply one application to affected and surrounding area(s) of skin BID until clinical resolution (abdominal and thigh folds), typically 1-4 weeks. Pause nystatin powder use while using clotrimazole cream. 01/03/20 25 025 Inactive Culturelle 10 billion cell capsule RxNorm: 516618 Take 1 Capsule(s) Oral QD 11/08/19 25 026 Active Culturelle 10 billion cell capsule RxNorm: 893008 Take 1 Capsule(s) Oral QD 11/08/19 25 025 Inactive hydrocodone 5 mg-acetaminophen 325 mg tablet RxNorm: 012551 Take 1 Tablet(s) Oral Q4H every four hours as needed for pain PRN for severe acute dental pain 10/21/19 25 025 Inactive penicillin V potassium 500 mg tablet RxNorm: 316949 Take 1 Tablet(s) Oral QID Take until dental appointment per ER recommendation 10/21/19 25 025 Inactive hydrocodone 5 mg-acetaminophen 325 mg tablet RxNorm: 713987 Take 1 Tablet(s) Oral Q4H every four hours as needed for pain PRN for severe acute dental pain 10/21/19 25 025 Inactive penicillin V potassium 500 mg tablet RxNorm: 836421 Take 1 Tablet(s) Oral QID Take until dental appointment per ER recommendation 10/21/19 25 025 Inactive potassium chloride ER 20 mEq tablet,extended release RxNorm: 826172 Take 2 Tablet(s) Oral TID (dx: hypokalemia) 09/14/19 25 026 Active potassium chloride ER 20 mEq tablet,extended release RxNorm: 640012 Take 2 Tablet(s) Oral TID (dx: hypokalemia) 09/14/19 25 Inactive loperamide 2 mg tablet RxNorm: 098888 Take 2 Tablet(s) Oral UD as directed [...] Date Active senna 8.6 mg tablet RxNorm: 258196 Take 1 Tablet(s) Oral QD as needed and 1 tab BID prn 09/06/19 No Stop Date Active cyclobenzaprine 10 mg tablet RxNorm: 447573 Take 1 Tablet(s) Oral QHS every night at bedtime as needed 09/06/19 No Stop Date Active loperamide 2 mg tablet RxNorm: 726381 Take 2 Tablet(s) Oral UD as directed as needed 2 tabs after first loose stool then 1 tab after each subsequent stool PRN Do not exceed 4 doses in 24 hours. Do not administer until after 3 loose stools. 09/06/19 25 Active pioglitazone 15 mg tablet RxNorm: 090214 Take 1 Tablet(s) Oral QD 09/06/19 No Stop Date Active loperamide 2 mg tablet RxNorm: 850928 Take 2 Tablet(s) Oral UD as directed as needed 2 tabs after first loose stool then 1 tab after each subsequent stool PRN Do not exceed 4 doses in 24 hours. Do not administer until after 3 loose stools. 09/06/19 25 025 Inactive pregabalin 100 mg capsule RxNorm: 766415 1 CAPSULE BY MOUTH EVERY MORNING (DX: NEUROPATHY) 08/23/19 25 Active FACILITY IS REQUESTING REFILL. PRIOR RX HAS BEEN EXHAUSTED. THANK YOU. pregabalin 150 mg capsule RxNorm: 210284 1 CAPSULE BY MOUTH AT BEDTIME (DX: NEUROPATHY) 08/21/19 25 025 Inactive FACILITY IS REQUESTING A REFILL OF THIS MEDICATION, THANK YOU! senna 8.6 mg tablet RxNorm: 242240 Take 1 Tablet(s) Oral QD as needed for constipation on day 2 of no bowel movement 08/09/19 25 025 Inactive Miralax 17 gram/dose oral powder RxNorm: 858321 Administer 17 Gram(s) Oral QD as needed for constipation on day 3 of no bowel movement 08/09/19 025 Inactive senna 8.6 mg tablet RxNorm: 660007 Take 1 Tablet(s) Oral QD as needed for constipation on day 2 of no bowel movement 08/09/19 25 025 Inactive Miralax 17 gram/dose oral powder RxNorm: 515393 Administer 17 Gram(s) Oral QD as needed for constipation on day 3 of no bowel movement 08/09/19 025 Inactive pregabalin 100 mg capsule RxNorm: 418523 Take 1 Capsule(s) Oral QAM every morning [...] (Concentrated) Insulin 500 unit/mL subcutaneous soln RxNorm: 282081 Inject 100 Unit(s) Subcutaneous AC before meals Three times daily before meals. 07/24/19 25 025 Inactive ammonium lactate 12 % topical cream RxNorm: 189857 Apply 1 Application Topical BID 07/20/19 No Stop Date Active ezetimibe 10 mg tablet RxNorm: 865999 Take 1 Tablet(s) Oral QD 07/18/19 25 No Stop Date Active senna 8.6 mg tablet RxNorm: 962407 Take 1 Tablet(s) Oral QD 07/18/19 25 025 Inactive metoprolol succinate ER 200 mg tablet,extended release 24 hr RxNorm: 465301 Take 1 Tablet(s) Oral QD 06/19/19 No Stop Date Active pantoprazole 40 mg tablet,delayed release RxNorm: 633229 Take 1 Tablet(s) Oral QAM every morning 06/19/19 25 No Stop Date Active hydralazine 50 mg tablet RxNorm: 271692 Take 1 Tablet(s) Oral QID 06/19/19 25 No Stop Date Active carbamazepine 200 mg tablet RxNorm: 529924 Take 1 Tablet(s) Oral BID 06/19/19 25 No Stop Date Active amlodipine 10 mg tablet RxNorm: 647533 Take 1 Tablet(s) Oral QD 06/19/19 25 No Stop Date Active Eliquis 5 mg tablet RxNorm: 1076922 Take 1 Tablet(s) Oral BID 06/19/19 25 No Stop Date Active pen needle, diabetic 30 gauge x 3/16 RxNorm: Use 1 6 times per day w/insulin 06/14/19 25 026 Active pen needle, diabetic 30 gauge x 3/16 RxNorm: Use 1 needle 6 times per day w/insulin 06/14/19 25 025 Inactive nystatin 100,000 unit/gram topical powder RxNorm: 928284 Apply 1 Application Topical BID as needed abdominal/breast/ groin folds 05/24/19 25 026 Active pregabalin 100 mg capsule RxNorm: 251912 Take 1 Capsule(s) Oral QAM every morning 05/22/19 25 025 Inactive nystatin 100,000 unit/gram topical powder RxNorm: 518974 Apply 1 Application Topical BID as needed abdominal/breast/ groin folds 04/11/20 24 024 Inactive chlorthalidone 25 mg tablet RxNorm: 202261 Take 1 Tablet(s) Oral QAM every morning 04/06/20 24 No Stop Date Active pregabalin 150 mg capsule RxNorm: 901896 Take 1 Capsule(s) Oral QHS every night at bedtime 03/31/20 24 024 Inactive Vascepa 1 gram capsule RxNorm: 3564813 Take 2 Capsule(s) Oral BID 03/30/20 24 025 Active rosuvastatin 40 mg tablet RxNorm: 263865 1 TAB ORALLY EVERY EVENING (DX:CORONARY ARTERY DISEASE) 03/28/20 24 No Stop Date Active venlafaxine ER 75 mg capsule,extended release 24 hr RxNorm: 364002 3 CAPS (225MG) ORALLY DAILY (DX: MOOD DISORDER) 03/28/20 No Stop Date Active pregabalin 100 mg capsule RxNorm: 244198 Take 1 Capsule(s) Oral QAM every morning 03/20/20 Inactive cholecalciferol (vitamin D3) 1,250 mcg (50,000 unit) capsule RxNorm: 591415 Take 1 Capsule(s) Oral QW once a [...] Insulin 100 unit/mL (3 mL) subcutaneous RxNorm: 5037046 Inject 40 Unit(s) Subcutaneous BID 03/07/20 025 Inactive Please dispense one month supply. Humulin R U-500 (Concentrated) Insulin 500 unit/mL subcutaneous soln RxNorm: 650315 Inject 100 Unit(s) Subcutaneous AC before meals Three times daily before meals. 03/07/20 024 Inactive Accu-Chek Guide Glucose Meter RxNorm: Use 1 Miscellaneous UD as directed Use glucose meter to monitor blood glucose 4 times daily and as needed. Dx:E11.42 10/19/20 24 10/19/2 024 Inactive Accu-Chek Guide test strips RxNorm: Use 1 Test Strip QID And PRN-- also dispense Soft Touch Lancets (QID and PRN) to be use with new Accu [place] meter 03/04/20 Inactive ok to substitute with any covered alternative test strip FreeStyle Chema 2 Sensor kit RxNorm: Use UD as directed 03/02/20 Inactive Pen Needle 30 gauge x 16 RxNorm: Pen(s) Use 1 needle as directed TID 03/02/20 Inactive nystatin 100,000 unit/gram topical powder RxNorm: 893024 Apply 1 Application Topical BID as needed [...] (Concentrated) Insulin 500 unit/mL subcutaneous soln RxNorm: 644069 Inject 100 Unit(s) Subcutaneous TID 02/17/20 24 024 Inactive Humulin R U-500 (Concentrated) Insulin 500 unit/mL subcutaneous soln RxNorm: 882870 Inject 100 Unit(s) Subcutaneous TID 02/10/20 24 024 Inactive Basaglar KwikPen U-100 Insulin 100 unit/mL (3 mL) subcutaneous RxNorm: 5105337 Inject 30 Unit(s) Subcutaneous BID 02/10/20 24 024 Inactive Please dispense one month supply. pregabalin 100 mg capsule RxNorm: 537851 Take 1 Capsule(s) Oral QAM every morning 02/07/20 24 024 Inactive isosorbide mononitrate ER 60 mg tablet,extended release 24 hr RxNorm: 138207 Take 1 Tablet(s) Oral QD 02/01/20 24 025 Inactive aripiprazole 15 mg tablet RxNorm: 931873 Take 1/2 Tablet(s) Oral QD 02/01/20 24 025 Inactive torsemide 20 mg tablet RxNorm: 986302 1 TAB ORALLY DAILY (DX: EDEMA) 01/27/20 No Stop Date Active potassium chloride ER 20 mEq tablet,extended release(part/cryst) RxNorm: 6677663 2 TABS (40MEQ) ORALLY TWICE DAILY (DX: HYPOKALEMIA) 01/27/20 24 025 Inactive cephalexin 500 mg capsule RxNorm: 200260 Take 1 Capsule(s) Oral QID 12/17/19 24 024 Inactive cephalexin 500 mg capsule RxNorm: 590522 Take 1 Capsule(s) Oral QID 12/17/19 24 024 Inactive acetaminophen 500 mg tablet RxNorm: 610391 (MAX APAP:4GM/24HR) Take 1 Tablet(s) Oral TID as needed for pain 12/10/19 24 024 Inactive torsemide 20 mg tablet RxNorm: 677357 Take 1 Tablet(s) Oral QD 10/26/19 24 024 Inactive potassium chloride ER 20 mEq tablet,extended release RxNorm: 19800522 Take 2 Tablet(s) Oral BID 10/26/19 24 024 Inactive torsemide 20 mg tablet RxNorm: 277931 Take 1 Tablet(s) Oral QD 10/26/19 24 025 Inactive potassium chloride ER 20 mEq tablet,extended release RxNorm: 592247 Take 2 Tablet(s) Oral BID 10/26/19 24 025 Inactive Artificial Tears (PF) 0.1 %-0.3 % drops in a dropperette RxNorm: 416700 Apply 1-2 Drop(s) Both eyes BID as needed 09/28/19 24 025 Inactive erythromycin 5 mg/gram (0.5 %) eye ointment RxNorm: 456216 Apply 1 Application Both eyes QHS every night at bedtime Instill ~1 cm ribbon into affected eye 09/28/19 24 Inactive Artificial Tears (PF) 0.1 %-0.3 % drops in a dropperette RxNorm: 574781 Apply 1-2 Drop(s) Both eyes BID as needed 09/28/19 24 Inactive erythromycin 5 mg/gram (0.5 %) eye ointment RxNorm: 780600 Apply 1 Application Both eyes QHS every night at bedtime Instill ~1 cm ribbon into affected eye 09/28/19 24 Inactive acetaminophen 500 mg tablet RxNorm: 884705 (MAX APAP:4GM/24HR) Take 1 Tablet(s) Oral TID as needed for pain 09/24/19 24 Inactive carvedilol 25 mg tablet RxNorm: 855294 Take 1 Tablet(s) Oral QD 09/08/19 No Stop Date Active pregabalin 100 mg capsule RxNorm: 808643 Take 1 Capsule(s) Oral QAM every morning 09/07/19 24 Inactive bisacodyl 10 mg rectal suppository RxNorm: 472922 Insert 1 Suppository Rectal QD as needed 07/13/19 24 No Stop Date Active ketoconazole 2 % shampoo RxNorm: 232917 Apply 1 Application Topical UD as directed 07/13/19 24 No Stop Date Active Ozempic 1 mg/dose (4 mg/3 mL) subcutaneous pen injector RxNorm: 6193342 Inject 1 Milligram(s) Subcutaneous QW once a week 07/13/19 24 No Stop Date Active Guaifenesin AC 10 mg-100 mg/5 mL oral liquid RxNorm: 772862 Take 10 Milliliter(s) Oral Q4H every four hours as needed 07/13/19 24 No Stop Date Active hydrocortisone 2.5 % topical cream RxNorm: 676831 Apply 1 Application Topical BID as needed 07/13/19 24 No Stop Date Active rosuvastatin 40 mg tablet RxNorm: 993036 Take 1 Tablet(s) Oral QPM every evening 07/13/19 24 024 Inactive ezetimibe 10 mg tablet RxNorm: 270599 Take 1 Tablet(s) Oral QD 07/13/19 24 025 Inactive polyethylene glycol 3350 17 gram/dose oral powder RxNorm: 192425 Take 17 Gram(s) Oral BID as needed mix in 4-8ox water 07/13/19 24 025 Inactive aripiprazole 15 mg tablet RxNorm: 240676 Take 1/2 Tablet(s) Oral QD 07/13/19 24 024 Inactive isosorbide mononitrate ER 60 mg tablet,extended release 24 hr RxNorm: 169712 Take 1 Tablet(s) Oral QD 07/13/19 24 024 Inactive ammonium lactate 12 % topical cream RxNorm: 956758 Apply 1 Application Topical BID 07/13/19 24 025 Inactive rosuvastatin 20 mg sprinkle capsule RxNorm: 7626124 Take 1 Capsule(s) Oral QD 07/13/19 24 025 Inactive Vascepa 1 gram capsule RxNorm: 6379535 Take 2 Capsule(s) Oral BID 07/13/19 24 024 Inactive venlafaxine ER 75 mg capsule,extended release 24 hr RxNorm: 351628 Take 3 Capsule(s) Oral QD 07/13/19 24 024 Inactive Basaglar KwikPen U-100 Insulin 100 unit/mL (3 mL) subcutaneous RxNorm: 0250027 Inject 30U SubQ twice daily 07/07/19 24 024 Inactive Please dispense one month supply. Basaglar KwikPen U-100 Insulin 100 unit/mL (3 mL) subcutaneous RxNorm: 7638544 Inject 30U SubQ twice daily 07/07/19 24 024 Inactive Please dispense one month supply. pregabalin 150 mg capsule RxNorm: 855663 Take 1 Capsule(s) Oral QHS every night at bedtime 07/05/19 24 024 Inactive pregabalin 150 mg capsule RxNorm: 199065 Take 1 Capsule(s) Oral QHS every night at bedtime 07/05/19 24 024 Inactive polyethylene glycol 3350 17 gram/dose oral powder RxNorm: 077095 Take 1 Packet Oral QD as needed (1 packet = 17g) mix with 4-8oz of liquid 06/15/19 Inactive bisacodyl 10 mg rectal suppository RxNorm: 027839 Insert one suppository per rectum once daily as needed for constipation 06/15/19 24 024 Inactive bisacodyl 10 mg rectal suppository RxNorm: 566559 Insert one suppository per rectum once daily as needed for constipation 06/15/19 024 Inactive pregabalin 100 mg capsule RxNorm: 551841 Take 1 Capsule(s) Oral QAM every morning 04/27/20 024 Inactive Levemir FlexPen 100 unit/mL (3 mL) solution subcutaneous insulin pen RxNorm: 691757 Inject 30 Unit(s) Subcutaneous BID 04/27/20 024 Inactive rosuvastatin 40 mg tablet RxNorm: 161157 Take 1 Tablet(s) Oral QPM every evening 04/16/20 024 Inactive D/C rosuvastatin 20mg venlafaxine ER 75 mg capsule,extended release 24 hr RxNorm: 360872 Take 3 Capsule(s) Oral QD 04/14/20 023 Inactive pregabalin 100 mg capsule RxNorm: 459640 Take 1 Capsule(s) Oral QAM every morning [...] strip clotrimazole 1 % topical cream RxNorm: 780668 Take apply topically to abdominal folds twice daily for 14 days 03/12/20 024 Inactive Ozempic 1 mg/dose (4 mg/3 mL) subcutaneous pen injector RxNorm: 5445986 Inject 1 Milligram(s) Subcutaneous QW once a week 03/11/20 023 Inactive rosuvastatin 20 mg tablet RxNorm: 873280 Take 1 Tablet(s) Oral QD 02/26/20 23 023 Inactive d/c pravastatin 80mg Ozempic 1 mg/dose (4 mg/3 mL) subcutaneous pen injector RxNorm: 3558446 Inject 1 Milligram(s) Subcutaneous QW once a week 02/20/20 023 Inactive pregabalin 150 mg capsule RxNorm: 172505 Take 1 Capsule(s) Oral HS at bed time 02/19/20 023 Inactive pregabalin 100 mg capsule RxNorm: 710079 Take 1 Capsule(s) Oral QAM every morning 02/18/20 023 Inactive venlafaxine ER 75 mg capsule,extended release 24 hr RxNorm: 350709 Take 3 Capsule(s) Oral QD 02/04/20 23 023 Inactive FreeStyle Chema 2 Sensor kit RxNorm: use as directed 02/04/20 23 023 Inactive FreeStyle Chema 2 Sensor kit RxNorm: use as directed 02/04/20 23 024 Inactive fluconazole 150 mg tablet RxNorm: 898291 Take 1 Tablet(s) Oral on day 3 and on day 6 02/03/20 024 Inactive venlafaxine ER 150 mg capsule,extended release 24 hr RxNorm: 808951 Take 1 Capsule(s) Oral QD 02/03/20 023 Inactive chlorthalidone 25 mg tablet RxNorm: 675870 Take 1 Tablet(s) Oral QAM every morning 02/03/20 23 024 Inactive acetaminophen 500 mg tablet RxNorm: 853813 1 TABLET ORALLY 3 TIMES DAILY (MAX APAP:4GM/24HR) 12/15/19 23 023 Inactive potassium chloride ER 20 mEq tablet,extended release RxNorm: 340537 Take 1 Tablet(s) Oral BID 12/09/19 23 024 Inactive d/c 20mEq once daily (sent from hospital) clotrimazole 1 % topical cream RxNorm: 044380 apply 1g topically to top of feet and in between toes BID 12/09/19 23 025 Inactive nystatin 100,000 unit/gram topical powder RxNorm: 398533 APPLY TO AFFECTED AREAS TOPICALLY 2 TIMES DAILY 11/21/19 23 023 Inactive Nystop 100,000 unit/gram topical powder RxNorm: 153568 Apply to abd folds, under breasts and L side of groin Topical BID x 14 days, then BID PRN 11/20/19 023 Inactive dx: yeast dermatitis [place] Ultra Strength 4 %-30 %-10 % topical cream RxNorm: 047458 Apply 1 Gram(s) Topical QID PRN to feet and legs for neuropathic pain 11/11/19 024 Inactive hydrocortisone 2.5 % topical cream RxNorm: 454894 Apply 1/2 Gram(s) Topical BID as needed 11/10/19 024 Inactive clotrimazole 1 % topical cream RxNorm: 442062 Apply 1/2 Gram(s) Topical BID Apply to affected areas of groin, periarea, and abdominal topically 2 times daily 11/10/19 025 Inactive Levemir FlexPen 100 unit/mL (3 mL) solution subcutaneous insulin pen RxNorm: 959334 Inject 30 Unit(s) Subcutaneous BID 10/07/19 023 Inactive Humulin R U-500 (Concentrated) Insulin 500 unit/mL subcutaneous soln RxNorm: 542092 Inject 100 Unit(s) Subcutaneous TID 10/07/19 024 Inactive Ozempic 0.25 mg or 0.5 mg (2 mg/3 mL) subcutaneous pen injector RxNorm: 3741609 Inject 1/2 Milligram(s) Subcutaneous QW once a week 10/07/19 024 Inactive aripiprazole 15 mg tablet RxNorm: 465389 1/2 TAB (7.5MG) ORALLY DAILY (DX:MAJOR DEPRESSIVE DISORDER) 09/23/19 023 Inactive Accu-Chek Guide test strips RxNorm: Use 1 Test Strip QID 09/15/19 23 023 Inactive ok to substitute with any covered alternative test strip Lancets,Thin 28 gauge RxNorm: Use 1 as directed QID 09/15/19 23 023 Inactive torsemide 20 mg tablet RxNorm: 613020 Take 1 Tablet(s) Oral BID 09/09/19 23 024 Inactive d/c once daily dosing carvedilol 25 mg tablet RxNorm: 884406 Take 1 Tablet(s) Oral QD 08/25/19 23 024 Inactive pregabalin 150 mg capsule RxNorm: 491136 1 Capsule(s) Oral HS at bed time 08/18/19 23 023 Inactive pregabalin 100 mg capsule RxNorm: 060792 1 Capsule(s) Oral QAM every morning 08/18/19 23 023 Inactive carvedilol 25 mg tablet RxNorm: 055216 1 Tablet(s) Oral QD 07/28/19 23 023 Inactive lisinopril 20 mg tablet RxNorm: 278068 Give 1 Tablet(s) Oral QD 07/28/19 23 023 Inactive Lyrica 150 mg capsule RxNorm: 685345 Take 1 Capsule(s) Oral QHS every night at bedtime 07/19/19 23 023 Inactive d/c 100mg dose Diflucan 150 mg tablet RxNorm: 079338 Take 1 Tablet(s) Oral QD repeat on day 3 and 6 07/19/19 23 023 Inactive pregabalin 100 mg capsule RxNorm: 065869 Take 1 Capsule(s) Oral QAM every morning 07/19/19 23 023 Inactive gatifloxacin 0.5 % eye drops RxNorm: 662109 Instill 1 Drop(s) as directed TID Instill 1 drop in to affected eye(s) starting 1 day prior to surgery and continue until gone (do not exceed 4 weeks). 07/13/19 23 023 Inactive carvedilol 25 mg tablet RxNorm: 517191 2 Tablet(s) Oral BID 07/13/19 23 023 Inactive Humulin R Regular U-100 Insulin 100 unit/mL injection solution RxNorm: 084269 85 Unit(s) Injection TID 07/13/19 23 023 Inactive ketorolac 0.5 % eye drops RxNorm: 942238 Instill 1 Drop(s) as directed QID Instill 1 drop into affected eye(s) 4 times daily starting 1 day prior to surgery and continue until gone (do not exceed 4 weeks). 07/13/19 23 023 Inactive Diflucan 150 mg tablet RxNorm: 137801 Take 1 Tablet(s) Oral QD repeat on day 3 and 6 06/30/19 23 023 Inactive Accu-Chek Guide test strips RxNorm: Use 1 Test Strip QID Use 1 test strip to monitor blood glucose 4 times daily and as needed. Dx:E11.42. 06/23/19 023 Inactive ok to substitute with any covered alternative test strip dextromethorphan-gu aifenesin 10 mg-100 mg/5 mL oral liquid RxNorm: 665077 Take 10 Milliliter(s) Oral every 4 hours as needed for cough 06/19/19 23 023 Inactive dextromethorphan-gu aifenesin 10 mg-100 mg/5 mL oral liquid RxNorm: 204767 Take 10 Milliliter(s) Oral every 4 hours as needed for cough 06/19/19 023 Inactive Lyrica 150 mg capsule RxNorm: 000128 Take 1 Capsule(s) Oral QHS every night at bedtime 06/18/19 023 Inactive d/c 100mg dose aripiprazole 15 mg tablet RxNorm: 931246 1/2 TAB (7.5MG) ORALLY DAILY (DX:MAJOR DEPRESSIVE DISORDER) 06/05/19 23 023 Inactive pregabalin 100 mg capsule RxNorm: 772062 1 Capsule(s) Oral QAM every morning 06/02/19 23 023 Inactive Banophen 50 mg capsule RxNorm: 5121416 Take 1 Capsule(s) Oral Q6H every 6 hours as needed 05/19/19 23 No Stop Date Active Novolog Flexpen U-100 Insulin aspart 100 unit/mL (3 mL) subcutaneous RxNorm: 2991500 Inject 10 Unit(s) Subcutaneous QHS every night at bedtime with nighttime snack 04/08/20 22 022 Inactive Novolog Flexpen U-100 Insulin aspart 100 unit/mL (3 mL) subcutaneous RxNorm: 2285230 Inject 42 Unit(s) Subcutaneous TID in addition to sliding scale 04/08/20 022 Inactive d/c 36u albuterol sulfate HFA 90 mcg/actuation aerosol inhaler RxNorm: 1476213 Take 2 Puff(s) Inhalation Q4H every four hours as needed as needed for SOB, cough, or wheezing 04/07/20 030 Active Banophen 50 mg capsule RxNorm: 8091147 Take 1 Capsule(s) Oral Q6H every 6 hours as needed 04/06/20 023 Inactive diphenhydramine 50 mg tablet RxNorm: 7181408 Take 1 Tablet(s) Oral Q6H every 6 hours as needed 04/06/20 022 Inactive diphenhydramine 50 mg tablet RxNorm: 8316981 1 Tablet(s) Oral Q6H every 6 hours as needed 04/06/20 022 Inactive Abilify 15 mg tablet RxNorm: 700229 1/2 Tablet(s) Oral QD 03/10/20 023 Inactive Shingrix (PF) 50 mcg/0.5 mL intramuscular suspension, kit RxNorm: 0266962 Administer 1/2 Milliliter(s) Intramuscular QD one time shingrix step 2 ( step 1 given 11/04/21) WITH needle - Nursing please administer upon arrival and once administered post a bridge message with date of administration, decision analyst, expiration date, and lot# so we can update [facility] 02/18/20 22 022 Inactive dispense with needle Shingrix (PF) 50 mcg/0.5 mL intramuscular suspension, kit RxNorm: 5318459 Administer 1/2 Milliliter(s) Intramuscular QD one time shingrix step 2 ( step 1 given 11/04/21) WITH needle - Nursing please administer upon arrival and once administered post a bridge message with date of administration, decision analyst, expiration date, and lot# so we can update [facility] 02/18/20 22 022 Inactive dispense with needle Lyrica 100 mg capsule RxNorm: 202710 Take 1 Capsule(s) Oral QAM every morning 01/08/20 22 022 Inactive d/c 50mg dose acetaminophen 500 mg tablet RxNorm: 733984 Take 1 Tablet(s) Oral TID 01/08/20 22 022 Inactive d/c PRN order Lyrica 150 mg capsule RxNorm: 247099 Take 1 Capsule(s) Oral QHS every night at bedtime 01/08/20 22 023 Inactive d/c 100mg dose polyethylene glycol 3350 17 gram/dose oral powder RxNorm: 980517 Take 17=1 capful Gram(s) Oral QD mix with 4-8oz of liquid 01/08/20 22 025 Inactive take this in addition to BID prn order Abilify 5 mg tablet RxNorm: 285501 Take 1 Tablet(s) Oral QD take 1 tab po QD #30 refill 5 dx: MDD 12/12/19 22 022 Inactive Abilify 5 mg tablet RxNorm: 605727 Take 1 Tablet(s) Oral QD take 1 tab po QD #30 refill 5 dx: MDD 12/12/19 22 022 Inactive Novolog Flexpen U-100 Insulin aspart 100 unit/mL (3 mL) subcutaneous RxNorm: 9120349 Inject 42 Unit(s) Subcutaneous TID in addition to sliding scale 12/10/19 22 022 Inactive d/c 36u chlorthalidone 25 mg tablet RxNorm: 859675 Take 1 Tablet(s) Oral QAM every morning 12/10/19 22 023 Inactive pregabalin 50 mg capsule RxNorm: 357498 Take 1 Capsule(s) Oral QAM every morning 11/12/19 22 022 Inactive tetanus-diphtheria toxoids-Td 2 Lf unit-2 Lf unit/0.5 mL IM suspension RxNorm: 139 Take 0.5 Miscellaneous Intramuscular 11/12/19 22 022 Inactive need tdap - nursing to administer upon arrival pregabalin 50 mg capsule RxNorm: 109075 Take 1 Capsule(s) Oral QAM every morning 10/16/19 22 022 Inactive pregabalin 50 mg capsule RxNorm: 682457 Take 1 Capsule(s) Oral QAM every morning 10/16/19 22 022 Inactive pregabalin 50 mg capsule RxNorm: 350469 1 Capsule(s) Oral QAM every morning 10/15/19 22 Inactive Shingrix (PF) 50 mcg/0.5 mL intramuscular suspension, kit RxNorm: 4155002 Administer 1/2 Milliliter(s) Intramuscular one time Nursing please administer upon arrival and once administered post a bridge message with date of administration, decision analyst, expiration date, and lot# so we can update [facility]. 10/09/19 22 022 Inactive shingrix step 1 Shingrix (PF) 50 mcg/0.5 mL intramuscular suspension, kit RxNorm: 2006652 Administer 1/2 Milliliter(s) Intramuscular one time Nursing please administer upon arrival and once administered post a bridge message with date of administration, decision analyst, expiration date, and lot# so we [...] aspart 100 unit/mL (3 mL) subcutaneous RxNorm: 5359664 Inject 10 Unit(s) Subcutaneous QHS every night at bedtime with nighttime snack 10/08/19 22 Inactive Shingrix (PF) 50 mcg/0.5 mL intramuscular suspension, kit RxNorm: 4161575 ADMINISTER 2-DOSE SERIES PER CDC GUIDELINES 10/08/19 22 022 Active Shingrix (PF) 50 mcg/0.5 mL intramuscular suspension, kit RxNorm: 1934487 ADMINISTER 2-DOSE SERIES PER CDC GUIDELINES 10/08/19 22 Inactive Novolog Flexpen U-100 Insulin aspart 100 unit/mL (3 mL) subcutaneous RxNorm: 0514505 Inject 36 Unit(s) Subcutaneous TID in addition to sliding scale 10/08/19 Inactive cholecalciferol (vitamin D3) 1,250 mcg (50,000 unit) capsule RxNorm: 752393 Take 1 Capsule(s) Oral QW once a week 10/08/19 Inactive Novofine Autocover 30 gauge x 1/3 needle RxNorm: Use 1 Miscellaneous UD as directed Use 1 needle as directed to administer insulin 5 times a day Dx:E11.42. 10/03/19 Inactive ok to substitute with any covered alternative pen needle benzoyl peroxide 10 % topical cleanser RxNorm: 634563 Apply 1 Application Topical QD apply to face, wash rinse and dry once daily (may change to QOD if drying) 08/19/19 022 Inactive (%covered by insurance) #60ml refill 11 dx: acne benzoyl peroxide 10 % topical cleanser RxNorm: 837426 Apply 1 Application Topical QD apply to face, wash rinse and dry once daily (may change to QOD if drying) 08/19/19 022 Inactive (%covered by insurance) #60ml refill 11 dx: acne benzoyl peroxide 10 % topical cleanser RxNorm: 392272 Apply 1 Application Topical QD apply to face, wash rinse and dry once daily (may change to QOD if drying) 08/19/19 22 022 Inactive (%covered by insurance) #60ml refill 11 dx: acne Lyrica 50 mg capsule RxNorm: 500869 Take 1 Capsule(s) Oral QAM every morning Take 1 capsule by mouth once daily 08/19/19 22 022 Inactive benzoyl peroxide 10 % topical cleanser RxNorm: 336904 Apply 1 Application Topical QD apply to face, wash rinse and dry once daily (may change to QOD if drying) 08/19/19 22 022 Inactive (%covered by insurance) #60ml refill 11 dx: acne Lyrica 100 mg capsule RxNorm: 669004 Take 1 Capsule(s) Oral QHS every night at bedtime Take 1 capsule by mouth once daily at bedtime 08/19/19 22 022 Inactive Lyrica 100 mg capsule RxNorm: 363827 Take 1 Capsule(s) Oral QHS every night at bedtime Take 1 capsule by mouth once daily at bedtime 08/16/19 22 022 Inactive Lyrica 50 mg capsule RxNorm: 133385 Take 1 Capsule(s) Oral QAM every morning Take 1 capsule by mouth once daily 08/16/19 22 022 Inactive Levemir FlexTouch U-100 Insulin 100 unit/mL (3 mL) subcutaneous pen RxNorm: 429463 Inject 86 Unit(s) Subcutaneous BID 08/05/19 22 022 Inactive d/c 83units BID Lyrica 100 mg capsule RxNorm: 654834 Take 1 Capsule(s) Oral QHS every night at bedtime Take 1 capsule by mouth once daily at bedtime 07/14/19 22 022 Inactive Lyrica 50 mg capsule RxNorm: 172639 Take 1 Capsule(s) Oral QAM every morning Take 1 capsule by mouth once daily 07/14/19 22 022 Inactive Levemir FlexTouch U-100 Insulin 100 unit/mL (3 mL) subcutaneous pen RxNorm: 678556 Inject 83 Unit(s) Subcutaneous BID 07/08/19 22 [...] times daily and as needed. Dx:E11.. 06/05/19 022 Inactive ok to substitute with any covered alternative test strip Accu-Chek Guide test strips RxNorm: Use 1 Test Strip QID Use 1 test strip to monitor blood glucose 4 times daily and as needed. Dx:E1142. 06/05/19 022 Inactive ok to substitute with any covered alternative test strip hydralazine 50 mg tablet RxNorm: 679577 Take 1 Tablet(s) Oral QID 05/05/20 21 022 Inactive venlafaxine ER 225 mg tablet,extended release 24 hr RxNorm: 183370 Take 1 Tablet(s) Oral QD 05/05/20 21 021 Inactive venlafaxine ER 225 mg tablet,extended release 24 hr RxNorm: 000485 Take 1 Tablet(s) Oral QD 05/05/20 21 022 Inactive isosorbide mononitrate ER 30 mg tablet,extended release 24 hr RxNorm: 361567 Take 1 Tablet(s) Oral QD 05/05/20 21 024 Inactive hydralazine 50 mg tablet RxNorm: 585431 Take 1 Tablet(s) Oral QID 05/05/20 21 021 Inactive aspirin 81 mg tablet,delayed release RxNorm: 860554 Take 1 Tablet(s) Oral QD 03/31/20 21 022 Inactive Vitamin D2 1,250 mcg (50,000 unit) capsule RxNorm: 3343186 Take 1 Capsule(s) Oral QW once a week x 12 weeks 03/31/20 21 022 Inactive Vitamin D2 1,250 mcg (50,000 unit) capsule RxNorm: 4882398 Take 1 Capsule(s) Oral QW once a week 03/31/20 021 Inactive Zetia 10 mg tablet RxNorm: 191364 Take 1 Tablet(s) Oral QD 03/31/20 024 Inactive Zetia 10 mg tablet RxNorm: 818235 Take 1 Tablet(s) Oral QD 03/31/20 021 Inactive hydralazine 25 mg tablet RxNorm: 339126 Take 1 Tablet(s) Oral QID 03/31/20 021 Inactive hydralazine 25 mg tablet RxNorm: 752992 Take 1 Tablet(s) Oral QID 03/31/20 021 Inactive hydralazine 10 mg tablet RxNorm: 911342 Take 1 Tablet(s) Oral QID 03/03/20 021 Inactive cephalexin 500 mg tablet RxNorm: 809888 Take 1 Tablet(s) Oral QID 02/27/20 021 Inactive cephalexin 500 mg tablet RxNorm: 808287 Take 1 Tablet(s) Oral QID 02/27/20 021 Inactive lisinopril 40 mg tablet RxNorm: 941913 Take 1 Tablet(s) Oral QD 02/11/20 023 Inactive Eliquis 5 mg tablet RxNorm: 3057282 Take 1 Tablet(s) Oral BID 01/05/20 21 025 Inactive Eliquis 5 mg tablet RxNorm: 8992199 Take 2 Tablet(s) Oral QD 01/01/20 21 021 Inactive Lyrica 50 mg capsule RxNorm: 557634 Take 1 Capsule(s) Oral QAM every morning 12/24/19 21 021 Inactive Lyrica 100 mg capsule RxNorm: 044083 Take 1 Capsule(s) Oral QHS every night at bedtime 12/24/19 21 021 Inactive clotrimazole 1 % topical cream RxNorm: 021472 Apply to right foot and toes Topical BID 12/04/19 21 023 Inactive metoprolol succinate ER 200 mg tablet,extended release 24 hr RxNorm: 388383 Take 1 Tablet(s) Oral QD 12/04/19 21 023 Inactive ciprofloxacin 500 mg tablet RxNorm: 337049 Take 1 Tablet(s) Oral QD 11/30/19 21 021 Inactive DX ofloxacin otic drops Accu-Chek Guide test strips RxNorm: USE 1 TO CHECK GLUCOSE 4 TIMES DAILY AND NEEDED 11/15/19 21 023 Inactive Blood Glucose Test strips RxNorm: Use 1 Test Strip QID at PRN 11/05/19 21 023 Inactive E11.42 lisinopril 30 mg tablet RxNorm: 020417 Take 1 Tablet(s) Oral QD 10/30/19 21 021 Inactive lisinopril 20 mg tablet RxNorm: 997452 Take 1 Tablet(s) Oral QD 10/23/19 21 021 Inactive lisinopril 20 mg tablet RxNorm: 020303 Take 1 Tablet(s) Oral QD 10/23/19 21 021 Inactive lisinopril 10 mg tablet RxNorm: 210971 Take 1 Tablet(s) Oral QD 10/02/19 21 021 Inactive icosapent ethyl 1 gram capsule RxNorm: 6117655 Take 2 Capsule(s) (2 gm) Oral BID with meals 09/12/19 21 024 Inactive Okay to dispense one 2gm tab if you have that available. icosapent ethyl 1 gram capsule RxNorm: 1665609 Take 2 Capsule(s) Oral BID 09/12/19 21 021 Inactive Okay to dispense one 2gm tab if you have that available. amlodipine 10 mg tablet RxNorm: 847258 Take 1 Tablet(s) Oral QD 09/04/19 21 021 Inactive aspirin 81 mg tablet,delayed release RxNorm: 045653 Take 1 Tablet(s) Oral QD 09/04/19 21 021 Inactive Levemir FlexTouch U-100 Insulin 100 unit/mL (3 mL) subcutaneous pen RxNorm: 059254 Inject 150 Unit(s) Subcutaneous BID 09/04/19 21 022 Inactive venlafaxine ER 150 mg tablet,extended release 24 hr RxNorm: 358307 Take 1 Tablet(s) Oral QD 09/04/19 Inactive clotrimazole-betame thasone 1 %-0.05 % topical cream RxNorm: 236053 Apply to rash on red area on left abdomen/chest Topical BID 08/10/19 21 Inactive amlodipine 5 mg tablet RxNorm: 539549 Take 1 Tablet(s) Oral QD 07/31/19 21 Inactive cephalexin 500 mg tablet RxNorm: 802556 Take 1 Tablet(s) Oral BID BID - Twice Daily 07/31/19 Inactive Start 08/01/20 pantoprazole 40 mg tablet,delayed release RxNorm: 240316 Take 1 Tablet(s) Oral QAM every morning 07/08/19 025 Inactive clopidogrel 75 mg tablet RxNorm: 240407 Take 1 Tablet(s) Oral QD 07/08/19 021 Inactive Blood Glucose Test strips RxNorm: Use 1 Test Strip QID at PRN 07/08/19 Inactive E11.42 senna 8.6 mg tablet RxNorm: 337624 Take 1 Tablet(s) Oral QD 07/08/19 025 Inactive Novolog Flexpen U-100 Insulin aspart 100 unit/mL (3 mL) subcutaneous RxNorm: 9776788 Administer per sliding scale Milliliter(s) Subcutaneous TID 151-200: 10 u; 201-250: 20 u; 251-300: 30 u; 301-350: 40 u; 351-400: 50 u. 07/08/19 022 Inactive lisinopril 5 mg tablet RxNorm: 446595 Take 1 Tablet(s) Oral QD 07/08/19 021 Inactive Novolog Flexpen U-100 Insulin aspart 100 unit/mL (3 mL) subcutaneous RxNorm: 3857373 Inject 85 Unit(s) Subcutaneous TID 07/08/19 21 022 Inactive pravastatin 80 mg tablet RxNorm: 380032 Take 1 Tablet(s) Oral QHS every night at bedtime 07/08/19 21 023 Inactive clotrimazole 1 % topical cream RxNorm: 010789 Apply to bilateral groin areas Topical BID 07/08/19 21 022 Inactive metoprolol succinate ER 200 mg tablet,extended release 24 hr RxNorm: 834784 Take 1 Tablet(s) Oral QD 07/08/19 021 Inactive Vitamin D3 25 mcg (1,000 unit) tablet RxNorm: 798975 Take 1 Tablet(s) Oral QD 07/08/19 021 Inactive isosorbide dinitrate 30 mg tablet RxNorm: 940452 Take 1 Tablet(s) Oral QD 07/08/19 021 Inactive carbamazepine 200 mg tablet RxNorm: 259837 Take 1 Tablet(s) Oral BID 07/08/19 21 025 Inactive Levemir FlexTouch U-100 Insulin 100 unit/mL (3 mL) subcutaneous pen RxNorm: 312935 Inject 140 Unit(s) Subcutaneous BID 07/08/19 021 Inactive torsemide 20 mg tablet RxNorm: 827323 Take 1 Tablet(s) Oral QD 07/08/19 023 Inactive venlafaxine 75 mg tablet RxNorm: 026195 Take 1 Tablet(s) Oral QD 07/08/19 021 Inactive acetaminophen 500 mg tablet RxNorm: 161033 Take 1 Tablet(s) Oral TID as needed for headache 06/18/19 021 Inactive acetaminophen 500 mg tablet RxNorm: 242275 Take 1 Tablet(s) Oral TID as needed for headache 06/18/19 021 Inactive Lyrica 100 mg capsule RxNorm: 300491 Take 1 Capsule(s) Oral QHS every night at bedtime 06/11/19 21 021 Inactive Lyrica 50 mg capsule RxNorm: 753528 Take 1 Capsule(s) Oral QAM every morning 06/10/19 21 021 Inactive hydrocortisone 2.5 % topical cream RxNorm: 911486 Apply to bilateral groin creases Topical BID 05/15/20 20 021 Inactive clotrimazole 1 % topical cream RxNorm: 193843 Apply to bilateral groin areas Topical BID 05/15/20 20 021 Inactive Lyrica 50 mg capsule RxNorm: 925226 Take 1 Capsule(s) Oral QAM every morning 05/14/20 20 020 Inactive Lyrica 100 mg capsule RxNorm: 621283 Take 1 Capsule(s) Oral QHS every night [...] Inactive Nystop 100,000 unit/gram topical powder RxNorm: 689066 Apply to abd folds, under breasts and L side of groin Topical BID x 14 days, then BID PRN 04/08/20 20 020 Inactive dx: yeast dermatitis Lyrica 100 mg capsule RxNorm: 804536 Take 1 Capsule(s) Oral QHS every night at bedtime 03/13/20 20 020 Inactive Lyrica 50 mg capsule RxNorm: 067885 Take 1 Capsule(s) Oral QAM every morning 03/13/20 20 020 Inactive ketoconazole 2 % shampoo RxNorm: 108100 Apply Topical two times a week with showers 03/11/20 20 024 Inactive cholecalciferol (vitamin D3) 50 mcg (2,000 unit) tablet RxNorm: 688908 Take 1 Tablet(s) Oral QD 03/11/20 20 021 Inactive Zetia 10 mg tablet RxNorm: 039142 Take 1 Tablet(s) Oral QD 03/07/20 20 021 Inactive Zetia 10 mg tablet RxNorm: 278268 Take 1 Tablet(s) Oral QD 03/07/20 20 Inactive Lyrica 50 mg capsule RxNorm: 735735 Take 1 Capsule(s) Oral QAM every morning 02/15/20 20 Inactive Lyrica 100 mg capsule RxNorm: 030811 Take 1 Capsule(s) Oral QHS every night at bedtime 02/15/20 20 Inactive Lyrica 100 mg capsule RxNorm: 821460 Take 1 Capsule(s) Oral QHS every night at bedtime 02/15/20 20 Inactive Lyrica 50 mg capsule RxNorm: 629860 Take 1 Capsule(s) Oral QAM every morning 02/15/20 Inactive venlafaxine ER 75 mg capsule,extended release 24 hr RxNorm: 496979 Take 3 Capsule(s) Oral QD 06/12/19 023 Inactive polyethylene glycol 3350 17 gram/dose oral powder RxNorm: 708669 Take 17=1 capful Gram(s) Oral BID as needed mix with 4-8oz of liquid 06/12/19 22 024 Inactive icosapent ethyl 1 gram capsule RxNorm: 3232179 Take 2 Capsule(s) (2 gm) Oral BID with meals 10/07/19 23 023 Inactive Okay to dispense one 2gm tab if you have that available. Levemir FlexTouch U-100 Insulin 100 unit/mL (3 mL) subcutaneous pen RxNorm: 165732 Inject 80 Unit(s) Subcutaneous BID 07/14/19 023 Inactive metoprolol succinate ER 200 mg tablet,extended release 24 hr RxNorm: 936694 Take 1 Tablet(s) Oral QD 08/12/19 025 Inactive loperamide 2 mg capsule RxNorm: 278207 Take 1 Capsule(s) Oral QID as needed 09/06/19 025 Inactive hydralazine 50 mg tablet RxNorm: 453341 Take 1 Tablet(s) Oral QID 08/12/19 025 Inactive Soft Touch Lancets RxNorm: miscellaneous 03/04/20 025 Inactive Novolog Flexpen U-100 Insulin aspart 100 unit/mL (3 mL) subcutaneous RxNorm: 1690820 Insert 30 Unit(s) Subcutaneous TID with meals [...] [facility] [address] [id number] [place] Referral No Records Received 10/20/2024 Referral: [facility]/Endocrinology WPtel: [address] [id number] [place] Referral No Records Received 07/10/2024 Referral: [facility] WPtel: [address], [address] [id number] [place] Referral Records Received 09/21/2022 Referral: [facility] WPtel: [address] [id number] [place] Referral Completed 05/28/2021 Referral: General Cardiology Referral Complet ed 01/03/2021 Referral: General Psychologist Referral Close d Referral: General Psychiatrist Referral Patient/Family Scheduling Appointment Referral: Shyla Avina [facility] WPtel: [id number] Referral Facility Scheduling Appointment Referral: General Physical Medicine Referral [...] Sister Jyotsna involved in his care cell# [phone] Guardian: Giulia (tapan met in person 09/01/21), [...] - next visit will order K recheck .: Potassium recheck 4.0. 8.: BMP K 4.0, Na 138, Creatinine 1.35H, eGFR 58L, BUN 24.9H. Ca 9.0. BG 363H. A1c 7.9H. Colon & Rectal Surgery visit scheduled for 06.19.2023 with Matilde Pérez PA-C. Endocrinology appointment 05.26.2024 with Jsesa Webster MD at [facility]. Start Pioglitazone 15 mg QD. Stop Basaglar insulin. Increase Ozempic 2 mg once wkly. Continue Humalin R U-500 100 units with meals TID. FOLLOW UP 2 MONTHS. If BG >400 add 50 units to next scheduled dose of Humalin R U 500 insulin 01/08/2025
--- OUTSIDE RECORDS SUMMARY | 2025-01-30 21:57 | XMS_ITS | CCD ---
Author Name Cecilio Durham Address [address] [place] [address] Phone Organization [facility] Phone Care Team Providers Care Clinical Operations Consultant Name Role Phone Harrison Durham Primary Care Provider Leona vailable Unavailable Chronic Care Management Unavaila ble Summary Purpose DataExchange Insurance Providers Payer name Policy type / Coverage type Covered libertarian ID Effective Begin Date Effective End Date Medicare [place] Medicare Part B [id number] Unknown Unknown Medicaid [place] Medicare Part B [id number] Unknown Unknown Family history Sister Brittany Suggs [...] on file 07/11/[address]: 825106169 Never smoker 01/16 Sexually Active? Unknown No [...] 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 09/03/[address]: 837037268 No Alcohol Consum ption 09/02/2020 Allergies, Adverse Reactions, Alerts Substance Reaction Codes Entered Date Inactivated Date Status * NO KNOWN FOOD ALLERGIES Unknown 07/13/2023 No Inactive Date Active LISINOPRIL RxNorm: 60301 02/12/2020 No Inactive Da te Active Metformin HCl Unknown 02/12/2020 No Inactive Cristiano e Active * NO KNOWN ENVIRONMENTAL ALLERGIES Unknown 07/13/2023 No Inactive Date Active Problems Condition Codes Effective Dates Condition St atus CKD stage 3a, GFR 45-59 ml/min SNOMED CT : 279118753 ICD-10: N18.31 ICD-9: 585.3 01/09/2025 Active Hypertensive heart disease without heart failure ICD-10: I11.9 ICD-9: 402.90 01/09/2025 Active Onychogryposis ICD-10: L60.2 ICD-9: 703.8 01/09/2025 Active Type 2 diabetes mellitus wit h diabetic chronic kidney disease ICD-10: E11.22 ICD-9: 250.40 01/09/2025 Active Body mass index [BMI] 60.0-69.9, adult ICD-10: Z68.44 ICD-9: V85.44 12/21/2024 Active History of recent hospitalization SNOMED CT: 331145033 ICD-10: Z92.89 ICD-9: V13.9 12/21/2024 Active Hypokalemia ICD-10: E87.6 ICD-9: 276.8 12/21/2024 Active Mixed incontinence SNOMED CT: 58722592 ICD-10: N39.46 ICD-9: 788.33 12/21/2024 Active TASHI (obstructive sleep apnea) SNOMED CT: 53549075 ICD-10: G47.33 ICD-9: 327.23 12/21/2024 Active Type [...] 701.9 09/07/2023 Resolved Coronary artery disease involving [place] coronary artery of [place] heart, angina presence unspecified ICD-10: I25.10 ICD-9: [...] determiner (current) use of insulin ICD-10: Z79.4 02/10/2022 [...] Instructions clotrimazole 1 % topical cream RxNorm: 786089 apply one application to affected and surrounding area(s) of skin BID until clinical resolution (abdominal and thigh folds), typically 1-4 weeks.Pause nystatin powder use while using clotrimazole cream. 01/03/20 25 025 Active clotrimazole 1 % topical cream RxNorm: 028977 apply one application to affected and surrounding area(s) of skin BID until clinical resolution (abdominal and thigh folds), typically 1-4 weeks. Pause nystatin powder use while using clotrimazole cream. 01/03/20 25 025 Inactive Culturelle 10 billion cell capsule RxNorm: 075107 Take 1 Capsule(s) Oral QD 11/08/19 25 026 Active Culturelle 10 billion cell capsule RxNorm: 129323 Take 1 Capsule(s) Oral QD 11/08/19 25 025 Inactive hydrocodone 5 mg-acetaminophen 325 mg tablet RxNorm: 032883 Take 1 Tablet(s) Oral Q4H every four hours as needed for pain PRN for severe acute dental pain 10/21/19 25 025 Inactive penicillin V potassium 500 mg tablet RxNorm: 435331 Take 1 Tablet(s) Oral QID Take until dental appointment per ER recommendation 10/21/19 25 025 Inactive hydrocodone 5 mg-acetaminophen 325 mg tablet RxNorm: 094910 Take 1 Tablet(s) Oral Q4H every four hours as needed for pain PRN for severe acute dental pain 10/21/19 25 025 Inactive penicillin V potassium 500 mg tablet RxNorm: 132371 Take 1 Tablet(s) Oral QID Take until dental appointment per ER recommendation 10/21/19 25 025 Inactive potassium chloride ER 20 mEq tablet,extended release RxNorm: 286295 Take 2 Tablet(s) Oral TID (dx: hypokalemia) 09/14/19 25 04/24/2 026 Active potassium chloride ER 20 mEq tablet,extended release RxNorm: 895973 Take 2 Tablet(s) Oral TID (dx: hypokalemia) 09/14/19 25 Inactive loperamide 2 mg tablet RxNorm: 732951 Take 2 Tablet(s) Oral UD as directed [...] Date Active senna 8.6 mg tablet RxNorm: 760795 Take 1 Tablet(s) Oral QD as needed and 1 tab BID prn 09/06/19 No Stop Date Active cyclobenzaprine 10 mg tablet RxNorm: 965198 Take 1 Tablet(s) Oral QHS every night at bedtime as needed 09/06/19 No Stop Date Active loperamide 2 mg tablet RxNorm: 435800 Take 2 Tablet(s) Oral UD as directed as needed 2 tabs after first loose stool then 1 tab after each subsequent stool PRN Do not exceed 4 doses in 24 hours. Do not administer until after 3 loose stools. 09/06/19 25 Active pioglitazone 15 mg tablet RxNorm: 106470 Take 1 Tablet(s) Oral QD 09/06/19 No Stop Date Active loperamide 2 mg tablet RxNorm: 467176 Take 2 Tablet(s) Oral UD as directed as needed 2 tabs after first loose stool then 1 tab after each subsequent stool PRN Do not exceed 4 doses in 24 hours. Do not administer until after 3 loose stools. 09/06/19 25 025 Inactive pregabalin 100 mg capsule RxNorm: 631363 1 CAPSULE BY MOUTH EVERY MORNING (DX: NEUROPATHY) 08/23/19 25 Active FACILITY IS REQUESTING REFILL. PRIOR RX HAS BEEN EXHAUSTED. THANK YOU. pregabalin 150 mg capsule RxNorm: 757464 1 CAPSULE BY MOUTH AT BEDTIME (DX: NEUROPATHY) 08/21/19 25 025 Inactive FACILITY IS REQUESTING A REFILL OF THIS MEDICATION, THANK YOU! senna 8.6 mg tablet RxNorm: 127477 Take 1 Tablet(s) Oral QD as needed for constipation on day 2 of no bowel movement 08/09/19 25 025 Inactive Miralax 17 gram/dose oral powder RxNorm: 779169 Administer 17 Gram(s) Oral QD as needed for constipation on day 3 of no bowel movement 08/09/19 025 Inactive senna 8.6 mg tablet RxNorm: 310991 Take 1 Tablet(s) Oral QD as needed for constipation on day 2 of no bowel movement 08/09/19 25 025 Inactive Miralax 17 gram/dose oral powder RxNorm: 870611 Administer 17 Gram(s) Oral QD as needed for constipation on day 3 of no bowel movement 08/09/19 025 Inactive pregabalin 100 mg capsule RxNorm: 668895 Take 1 Capsule(s) Oral QAM every morning [...] (Concentrated) Insulin 500 unit/mL subcutaneous soln RxNorm: 246190 Inject 100 Unit(s) Subcutaneous AC before meals Three times daily before meals. 07/24/19 25 025 Inactive ammonium lactate 12 % topical cream RxNorm: 462107 Apply 1 Application Topical BID 07/20/19 No Stop Date Active ezetimibe 10 mg tablet RxNorm: 312798 Take 1 Tablet(s) Oral QD 07/18/19 No Stop Date Active senna 8.6 mg tablet RxNorm: 944124 Take 1 Tablet(s) Oral QD 07/18/19 25 025 Inactive metoprolol succinate ER 200 mg tablet,extended release 24 hr RxNorm: 331454 Take 1 Tablet(s) Oral QD 06/19/19 No Stop Date Active pantoprazole 40 mg tablet,delayed release RxNorm: 012123 Take 1 Tablet(s) Oral QAM every morning 06/19/19 25 No Stop Date Active hydralazine 50 mg tablet RxNorm: 622138 Take 1 Tablet(s) Oral QID 06/19/19 25 No Stop Date Active carbamazepine 200 mg tablet RxNorm: 575993 Take 1 Tablet(s) Oral BID 06/19/19 25 No Stop Date Active amlodipine 10 mg tablet RxNorm: 388344 Take 1 Tablet(s) Oral QD 06/19/19 25 No Stop Date Active Eliquis 5 mg tablet RxNorm: 9447722 Take 1 Tablet(s) Oral BID 06/19/19 25 No Stop Date Active pen needle, diabetic 30 gauge x 3/16 RxNorm: Use 1 6 times per day w/insulin 06/14/19 25 026 Active pen needle, diabetic 30 gauge x 3/16 RxNorm: Use 1 needle 6 times per day w/insulin 06/14/19 25 025 Inactive nystatin 100,000 unit/gram topical powder RxNorm: 113901 Apply 1 Application Topical BID as needed abdominal/breast/ groin folds 05/24/19 25 026 Active pregabalin 100 mg capsule RxNorm: 318579 Take 1 Capsule(s) Oral QAM every morning 05/22/19 25 025 Inactive nystatin 100,000 unit/gram topical powder RxNorm: 945469 Apply 1 Application Topical BID as needed abdominal/breast/ groin folds 04/11/20 24 024 Inactive chlorthalidone 25 mg tablet RxNorm: 418039 Take 1 Tablet(s) Oral QAM every morning 04/06/20 24 No Stop Date Active pregabalin 150 mg capsule RxNorm: 823875 Take 1 Capsule(s) Oral QHS every night at bedtime 03/31/20 24 024 Inactive Vascepa 1 gram capsule RxNorm: 4268827 Take 2 Capsule(s) Oral BID 03/30/20 24 025 Active rosuvastatin 40 mg tablet RxNorm: 585308 1 TAB ORALLY EVERY EVENING (DX:CORONARY ARTERY DISEASE) 03/28/20 24 No Stop Date Active venlafaxine ER 75 mg capsule,extended release 24 hr RxNorm: 882326 3 CAPS (225MG) ORALLY DAILY (DX: MOOD DISORDER) 03/28/20 No Stop Date Active pregabalin 100 mg capsule RxNorm: 723153 Take 1 Capsule(s) Oral QAM every morning 03/20/20 Inactive cholecalciferol (vitamin D3) 1,250 mcg (50,000 unit) capsule RxNorm: 150049 Take 1 Capsule(s) Oral QW once a [...] Insulin 100 unit/mL (3 mL) subcutaneous RxNorm: 4997832 Inject 40 Unit(s) Subcutaneous BID 03/07/20 025 Inactive Please dispense one month supply. Humulin R U-500 (Concentrated) Insulin 500 unit/mL subcutaneous soln RxNorm: 738215 Inject 100 Unit(s) Subcutaneous AC before meals [...] to be use with new Accu [place] meter 03/04/20 Inactive ok to substitute with any covered alternative test strip FreeStyle Chema 2 Sensor kit RxNorm: Use UD as directed 03/02/20 Inactive Pen Needle 30 gauge x 516 RxNorm: Pen(s) Use 1 needle as directed TID 03/02/20 Inactive nystatin 100,000 unit/gram topical powder RxNorm: 616625 Apply 1 Application Topical BID as needed [...] (Concentrated) Insulin 500 unit/mL subcutaneous soln RxNorm: 710973 Inject 100 Unit(s) Subcutaneous TID 02/17/20 24 024 Inactive Humulin R U-500 (Concentrated) Insulin 500 unit/mL subcutaneous soln RxNorm: 323968 Inject 100 Unit(s) Subcutaneous TID 02/10/20 24 024 Inactive Basaglar KwikPen U-100 Insulin 100 unit/mL (3 mL) subcutaneous RxNorm: 6359168 Inject 30 Unit(s) Subcutaneous BID 02/10/20 24 024 Inactive Please dispense one month supply. pregabalin 100 mg capsule RxNorm: 001411 Take 1 Capsule(s) Oral QAM every morning 02/07/20 24 024 Inactive isosorbide mononitrate ER 60 mg tablet,extended release 24 hr RxNorm: 924605 Take 1 Tablet(s) Oral QD 02/01/20 24 025 Inactive aripiprazole 15 mg tablet RxNorm: 717683 Take 1/2 Tablet(s) Oral QD 02/01/20 24 025 Inactive torsemide 20 mg tablet RxNorm: 558802 1 TAB ORALLY DAILY (DX: EDEMA) 01/27/20 No Stop Date Active potassium chloride ER 20 mEq tablet,extended release(part/cryst) RxNorm: 2087309 2 TABS (40MEQ) ORALLY TWICE DAILY (DX: HYPOKALEMIA) 01/27/20 24 025 Inactive cephalexin 500 mg capsule RxNorm: 574316 Take 1 Capsule(s) Oral QID 12/17/19 24 024 Inactive cephalexin 500 mg capsule RxNorm: 459047 Take 1 Capsule(s) Oral QID 12/17/19 24 024 Inactive acetaminophen 500 mg tablet RxNorm: 379435 (MAX APAP:4GM/24HR) Take 1 Tablet(s) Oral TID as needed for pain 12/10/19 24 024 Inactive torsemide 20 mg tablet RxNorm: 953646 Take 1 Tablet(s) Oral QD 10/26/19 24 024 Inactive potassium chloride ER 20 mEq tablet,extended release RxNorm: 19800522 Take 2 Tablet(s) Oral BID 10/26/19 24 024 Inactive torsemide 20 mg tablet RxNorm: 366412 Take 1 Tablet(s) Oral QD 10/26/19 24 025 Inactive potassium chloride ER 20 mEq tablet,extended release RxNorm: 589563 Take 2 Tablet(s) Oral BID 10/26/19 24 025 Inactive Artificial Tears (PF) 0.1 %-0.3 % drops in a dropperette RxNorm: 032178 Apply 1-2 Drop(s) Both eyes BID as needed 09/28/19 24 025 Inactive erythromycin 5 mg/gram (0.5 %) eye ointment RxNorm: 374733 Apply 1 Application Both eyes QHS every night at bedtime Instill ~1 cm ribbon into affected eye 09/28/19 24 Inactive Artificial Tears (PF) 0.1 %-0.3 % drops in a dropperette RxNorm: 661378 Apply 1-2 Drop(s) Both eyes BID as needed 09/28/19 24 Inactive erythromycin 5 mg/gram (0.5 %) eye ointment RxNorm: 426352 Apply 1 Application Both eyes QHS every night at bedtime Instill ~1 cm ribbon into affected eye 09/28/19 24 Inactive acetaminophen 500 mg tablet RxNorm: 344678 (MAX APAP:4GM/24HR) Take 1 Tablet(s) Oral TID as needed for pain 09/24/19 24 Inactive carvedilol 25 mg tablet RxNorm: 607502 Take 1 Tablet(s) Oral QD 09/08/19 No Stop Date Active pregabalin 100 mg capsule RxNorm: 516536 Take 1 Capsule(s) Oral QAM every morning 09/07/19 24 Inactive bisacodyl 10 mg rectal suppository RxNorm: 140451 Insert 1 Suppository Rectal QD as needed 07/13/19 24 No Stop Date Active ketoconazole 2 % shampoo RxNorm: 163153 Apply 1 Application Topical UD as directed 07/13/19 24 No Stop Date Active Ozempic 1 mg/dose (4 mg/3 mL) subcutaneous pen injector RxNorm: 8848452 Inject 1 Milligram(s) Subcutaneous QW once a week 07/13/19 24 No Stop Date Active Guaifenesin AC 10 mg-100 mg/5 mL oral liquid RxNorm: 497591 Take 10 Milliliter(s) Oral Q4H every four hours as needed 07/13/19 24 No Stop Date Active hydrocortisone 2.5 % topical cream RxNorm: 280820 Apply 1 Application Topical BID as needed 07/13/19 24 No Stop Date Active rosuvastatin 40 mg tablet RxNorm: 120777 Take 1 Tablet(s) Oral QPM every evening 07/13/19 24 024 Inactive ezetimibe 10 mg tablet RxNorm: 129694 Take 1 Tablet(s) Oral QD 07/13/19 24 025 Inactive polyethylene glycol 3350 17 gram/dose oral powder RxNorm: 594546 Take 17 Gram(s) Oral BID as needed mix in 4-8ox water 07/13/19 24 025 Inactive aripiprazole 15 mg tablet RxNorm: 954009 Take 1/2 Tablet(s) Oral QD 07/13/19 24 024 Inactive isosorbide mononitrate ER 60 mg tablet,extended release 24 hr RxNorm: 456592 Take 1 Tablet(s) Oral QD 07/13/19 24 024 Inactive ammonium lactate 12 % topical cream RxNorm: 650210 Apply 1 Application Topical BID 07/13/19 24 025 Inactive rosuvastatin 20 mg sprinkle capsule RxNorm: 7398420 Take 1 Capsule(s) Oral QD 07/13/19 24 025 Inactive Vascepa 1 gram capsule RxNorm: 8828487 Take 2 Capsule(s) Oral BID 07/13/19 24 024 Inactive venlafaxine ER 75 mg capsule,extended release 24 hr RxNorm: 761137 Take 3 Capsule(s) Oral QD 07/13/19 24 024 Inactive Basaglar KwikPen U-100 Insulin 100 unit/mL (3 mL) subcutaneous RxNorm: 9162020 Inject 30U SubQ twice daily 07/07/19 24 024 Inactive Please dispense one month supply. Basaglar KwikPen U-100 Insulin 100 unit/mL (3 mL) subcutaneous RxNorm: 5612644 Inject 30U SubQ twice daily 07/07/19 24 024 Inactive Please dispense one month supply. pregabalin 150 mg capsule RxNorm: 741713 Take 1 Capsule(s) Oral QHS every night at bedtime 07/05/19 24 024 Inactive pregabalin 150 mg capsule RxNorm: 122345 Take 1 Capsule(s) Oral QHS every night at bedtime 07/05/19 24 024 Inactive polyethylene glycol 3350 17 gram/dose oral powder RxNorm: 171063 Take 1 Packet Oral QD as needed (1 packet = 17g) mix with 4-8oz of liquid 06/15/19 024 Inactive bisacodyl 10 mg rectal suppository RxNorm: 784916 Insert one suppository per rectum once daily as needed for constipation 06/15/19 24 024 Inactive bisacodyl 10 mg rectal suppository RxNorm: 086073 Insert one suppository per rectum once daily as needed for constipation 06/15/19 024 Inactive pregabalin 100 mg capsule RxNorm: 546156 Take 1 Capsule(s) Oral QAM every morning 04/27/20 024 Inactive Levemir FlexPen 100 unit/mL (3 mL) solution subcutaneous insulin pen RxNorm: 828963 Inject 30 Unit(s) Subcutaneous BID 04/27/20 024 Inactive rosuvastatin 40 mg tablet RxNorm: 267360 Take 1 Tablet(s) Oral QPM every evening 04/16/20 024 Inactive D/C rosuvastatin 20mg venlafaxine ER 75 mg capsule,extended release 24 hr RxNorm: 174654 Take 3 Capsule(s) Oral QD 04/14/20 023 Inactive pregabalin 100 mg capsule RxNorm: 987089 Take 1 Capsule(s) Oral QAM every morning [...] strip clotrimazole 1 % topical cream RxNorm: 883776 Take apply topically to abdominal folds twice daily for 14 days 03/12/20 024 Inactive Ozempic 1 mg/dose (4 mg/3 mL) subcutaneous pen injector RxNorm: 0555779 Inject 1 Milligram(s) Subcutaneous QW once a week 03/11/20 023 Inactive rosuvastatin 20 mg tablet RxNorm: 806394 Take 1 Tablet(s) Oral QD 02/26/20 23 023 Inactive d/c pravastatin 80mg Ozempic 1 mg/dose (4 mg/3 mL) subcutaneous pen injector RxNorm: 6742051 Inject 1 Milligram(s) Subcutaneous QW once a week 02/20/20 023 Inactive pregabalin 150 mg capsule RxNorm: 436043 Take 1 Capsule(s) Oral HS at bed time 02/19/20 023 Inactive pregabalin 100 mg capsule RxNorm: 486606 Take 1 Capsule(s) Oral QAM every morning 02/18/20 023 Inactive venlafaxine ER 75 mg capsule,extended release 24 hr RxNorm: 917095 Take 3 Capsule(s) Oral QD 02/04/20 023 Inactive FreeStyle Chema 2 Sensor kit RxNorm: use as directed 02/04/20 23 023 Inactive FreeStyle Chema 2 Sensor kit RxNorm: use as directed 02/04/20 23 024 Inactive fluconazole 150 mg tablet RxNorm: 711950 Take 1 Tablet(s) Oral on day 3 and on day 6 02/03/20 024 Inactive venlafaxine ER 150 mg capsule,extended release 24 hr RxNorm: 834293 Take 1 Capsule(s) Oral QD 02/03/20 023 Inactive chlorthalidone 25 mg tablet RxNorm: 779605 Take 1 Tablet(s) Oral QAM every morning 02/03/20 024 Inactive acetaminophen 500 mg tablet RxNorm: 771231 1 TABLET ORALLY 3 TIMES DAILY (MAX APAP:4GM/24HR) 12/15/19 23 023 Inactive potassium chloride ER 20 mEq tablet,extended release RxNorm: 849333 Take 1 Tablet(s) Oral BID 12/09/19 23 024 Inactive d/c 20mEq once daily (sent from hospital) clotrimazole 1 % topical cream RxNorm: 973397 apply 1g topically to top of feet and in between toes BID 12/09/19 23 025 Inactive nystatin 100,000 unit/gram topical powder RxNorm: 485746 APPLY TO AFFECTED AREAS TOPICALLY 2 TIMES DAILY 11/21/19 23 023 Inactive Nystop 100,000 unit/gram topical powder RxNorm: 001914 Apply to abd folds, under breasts and L side of groin Topical BID x 14 days, then BID PRN 11/20/19 023 Inactive dx: yeast dermatitis [place] Ultra Strength 4 %-30 %-10 % topical cream RxNorm: 480296 Apply 1 Gram(s) Topical QID PRN to feet and legs for neuropathic pain 11/11/19 024 Inactive hydrocortisone 2.5 % topical cream RxNorm: 521530 Apply 1/2 Gram(s) Topical BID as needed 11/10/19 024 Inactive clotrimazole 1 % topical cream RxNorm: 266863 Apply 1/2 Gram(s) Topical BID Apply to affected areas of groin, periarea, and abdominal topically 2 times daily 11/10/19 23 025 Inactive Levemir FlexPen 100 unit/mL (3 mL) solution subcutaneous insulin pen RxNorm: 342912 Inject 30 Unit(s) Subcutaneous BID 10/07/19 023 Inactive Humulin R U-500 (Concentrated) Insulin 500 unit/mL subcutaneous soln RxNorm: 596982 Inject 100 Unit(s) Subcutaneous TID 10/07/19 024 Inactive Ozempic 0.25 mg or 0.5 mg (2 mg/3 mL) subcutaneous pen injector RxNorm: 6559669 Inject 1/2 Milligram(s) Subcutaneous QW once a week 10/07/19 024 Inactive aripiprazole 15 mg tablet RxNorm: 309307 1/2 TAB (7.5MG) ORALLY DAILY (DX:MAJOR DEPRESSIVE DISORDER) 09/23/19 023 Inactive Accu-Chek Guide test strips RxNorm: Use 1 Test Strip QID 09/15/19 23 023 Inactive ok to substitute with any covered alternative test strip Lancets,Thin 28 gauge RxNorm: Use 1 as directed QID 09/15/19 23 023 Inactive torsemide 20 mg tablet RxNorm: 044950 Take 1 Tablet(s) Oral BID 09/09/19 23 024 Inactive d/c once daily dosing carvedilol 25 mg tablet RxNorm: 126392 Take 1 Tablet(s) Oral QD 08/25/19 23 024 Inactive pregabalin 150 mg capsule RxNorm: 627560 1 Capsule(s) Oral HS at bed time 08/18/19 23 023 Inactive pregabalin 100 mg capsule RxNorm: 541698 1 Capsule(s) Oral QAM every morning 08/18/19 23 023 Inactive carvedilol 25 mg tablet RxNorm: 351929 1 Tablet(s) Oral QD 07/28/19 23 023 Inactive lisinopril 20 mg tablet RxNorm: 493884 Give 1 Tablet(s) Oral QD 07/28/19 23 023 Inactive Lyrica 150 mg capsule RxNorm: 150916 Take 1 Capsule(s) Oral QHS every night at bedtime 07/19/19 23 023 Inactive d/c 100mg dose Diflucan 150 mg tablet RxNorm: 195622 Take 1 Tablet(s) Oral QD repeat on day 3 and 6 07/19/19 23 023 Inactive pregabalin 100 mg capsule RxNorm: 790292 Take 1 Capsule(s) Oral QAM every morning 07/19/19 23 023 Inactive gatifloxacin 0.5 % eye drops RxNorm: 033948 Instill 1 Drop(s) as directed TID Instill 1 drop in to affected eye(s) starting 1 day prior to surgery and continue until gone (do not exceed 4 weeks). 07/13/19 23 023 Inactive carvedilol 25 mg tablet RxNorm: 564813 2 Tablet(s) Oral BID 07/13/19 23 023 Inactive Humulin R Regular U-100 Insulin 100 unit/mL injection solution RxNorm: 748363 85 Unit(s) Injection TID 07/13/19 23 023 Inactive ketorolac 0.5 % eye drops RxNorm: 966112 Instill 1 Drop(s) as directed QID Instill 1 drop into affected eye(s) 4 times daily starting 1 day prior to surgery and continue until gone (do not exceed 4 weeks). 07/13/19 23 023 Inactive Diflucan 150 mg tablet RxNorm: 189268 Take 1 Tablet(s) Oral QD repeat on day 3 and 6 06/30/19 23 023 Inactive Accu-Chek Guide test strips RxNorm: Use 1 Test Strip QID Use 1 test strip to monitor blood glucose 4 times daily and as needed. Dx:E11.42. 06/23/19 023 Inactive ok to substitute with any covered alternative test strip dextromethorphan-gu aifenesin 10 mg-100 mg/5 mL oral liquid RxNorm: 436074 Take 10 Milliliter(s) Oral every 4 hours as needed for cough 06/19/19 023 Inactive dextromethorphan-gu aifenesin 10 mg-100 mg/5 mL oral liquid RxNorm: 042035 Take 10 Milliliter(s) Oral every 4 hours as needed for cough 06/19/19 023 Inactive Lyrica 150 mg capsule RxNorm: 581254 Take 1 Capsule(s) Oral QHS every night at bedtime 06/18/19 023 Inactive d/c 100mg dose aripiprazole 15 mg tablet RxNorm: 413575 1/2 TAB (7.5MG) ORALLY DAILY (DX:MAJOR DEPRESSIVE DISORDER) 06/05/19 23 023 Inactive pregabalin 100 mg capsule RxNorm: 251649 1 Capsule(s) Oral QAM every morning 06/02/19 23 023 Inactive Banophen 50 mg capsule RxNorm: 9167482 Take 1 Capsule(s) Oral Q6H every 6 hours as needed 05/19/19 23 No Stop Date Active Novolog Flexpen U-100 Insulin aspart 100 unit/mL (3 mL) subcutaneous RxNorm: 7181500 Inject 10 Unit(s) Subcutaneous QHS every night at bedtime with nighttime snack 04/08/20 022 Inactive Novolog Flexpen U-100 Insulin aspart 100 unit/mL (3 mL) subcutaneous RxNorm: 0989993 Inject 42 Unit(s) Subcutaneous TID in addition to sliding scale 04/08/20 022 Inactive d/c 36u albuterol sulfate HFA 90 mcg/actuation aerosol inhaler RxNorm: 3565168 Take 2 Puff(s) Inhalation Q4H every four hours as needed as needed for SOB, cough, or wheezing 04/07/20 030 Active Banophen 50 mg capsule RxNorm: 7926644 Take 1 Capsule(s) Oral Q6H every 6 hours as needed 04/06/20 023 Inactive diphenhydramine 50 mg tablet RxNorm: 1656730 Take 1 Tablet(s) Oral Q6H every 6 hours as needed 04/06/20 022 Inactive diphenhydramine 50 mg tablet RxNorm: 1686713 1 Tablet(s) Oral Q6H every 6 hours as needed 04/06/20 022 Inactive Abilify 15 mg tablet RxNorm: 050623 1/2 Tablet(s) Oral QD 03/10/20 023 Inactive Shingrix (PF) 50 mcg/0.5 mL intramuscular suspension, kit RxNorm: 1478013 Administer 1/2 Milliliter(s) Intramuscular QD one time shingrix step 2 ( step 1 given 11/04/21) WITH needle - Nursing please administer upon arrival and once administered post a bridge message with date of administration, integration solution architect, expiration date, and lot# so we can update [facility] 02/18/20 22 022 Inactive dispense with needle Shingrix (PF) 50 mcg/0.5 mL intramuscular suspension, kit RxNorm: 8486770 Administer 1/2 Milliliter(s) Intramuscular QD one time shingrix step 2 ( step 1 given 11/04/21) WITH needle - Nursing please administer upon arrival and once administered post a bridge message with date of administration, integration solution architect, expiration date, and lot# so we can update [facility] 02/18/20 22 022 Inactive dispense with needle Lyrica 100 mg capsule RxNorm: 249709 Take 1 Capsule(s) Oral QAM every morning 01/08/20 22 022 Inactive d/c 50mg dose acetaminophen 500 mg tablet RxNorm: 411000 Take 1 Tablet(s) Oral TID 01/08/20 22 022 Inactive d/c PRN order Lyrica 150 mg capsule RxNorm: 195542 Take 1 Capsule(s) Oral QHS every night at bedtime 01/08/20 22 023 Inactive d/c 100mg dose polyethylene glycol 3350 17 gram/dose oral powder RxNorm: 606818 Take 17=1 capful Gram(s) Oral QD mix with 4-8oz of liquid 01/08/20 22 025 Inactive take this in addition to BID prn order Abilify 5 mg tablet RxNorm: 404316 Take 1 Tablet(s) Oral QD take 1 tab po QD #30 refill 5 dx: MDD 12/12/19 22 022 Inactive Abilify 5 mg tablet RxNorm: 455925 Take 1 Tablet(s) Oral QD take 1 tab po QD #30 refill 5 dx: MDD 12/12/19 22 022 Inactive Novolog Flexpen U-100 Insulin aspart 100 unit/mL (3 mL) subcutaneous RxNorm: 1569453 Inject 42 Unit(s) Subcutaneous TID in addition to sliding scale 12/10/19 22 022 Inactive d/c 36u chlorthalidone 25 mg tablet RxNorm: 268459 Take 1 Tablet(s) Oral QAM every morning 12/10/19 22 023 Inactive pregabalin 50 mg capsule RxNorm: 762400 Take 1 Capsule(s) Oral QAM every morning 11/12/19 22 022 Inactive tetanus-diphtheria toxoids-Td 2 Lf unit-2 Lf unit/0.5 mL IM suspension RxNorm: 139 Take 0.5 Miscellaneous Intramuscular 11/12/19 22 022 Inactive need tdap - nursing to administer upon arrival pregabalin 50 mg capsule RxNorm: 249338 Take 1 Capsule(s) Oral QAM every morning 10/16/19 22 022 Inactive pregabalin 50 mg capsule RxNorm: 664721 Take 1 Capsule(s) Oral QAM every morning 10/16/19 22 Inactive pregabalin 50 mg capsule RxNorm: 411473 1 Capsule(s) Oral QAM every morning 10/15/19 22 Inactive Shingrix (PF) 50 mcg/0.5 mL intramuscular suspension, kit RxNorm: 2664340 Administer 1/2 Milliliter(s) Intramuscular one time Nursing please administer upon arrival and once administered post a bridge message with date of administration, integration solution architect, expiration date, and lot# so we can update [facility]. 10/09/19 22 Inactive shingrix step 1 Shingrix (PF) 50 mcg/0.5 mL intramuscular suspension, kit RxNorm: 0733412 Administer 1/2 Milliliter(s) Intramuscular one time Nursing please administer upon arrival and once administered post a bridge message with date of administration, integration solution architect, expiration date, and lot# so we [...] aspart 100 unit/mL (3 mL) subcutaneous RxNorm: 6787063 Inject 10 Unit(s) Subcutaneous QHS every night at bedtime with nighttime snack 10/08/19 22 Inactive Shingrix (PF) 50 mcg/0.5 mL intramuscular suspension, kit RxNorm: 6541625 ADMINISTER 2-DOSE SERIES PER CDC GUIDELINES 10/08/19 22 022 Active Shingrix (PF) 50 mcg/0.5 mL intramuscular suspension, kit RxNorm: 9547266 ADMINISTER 2-DOSE SERIES PER CDC GUIDELINES 10/08/19 022 Inactive Novolog Flexpen U-100 Insulin aspart 100 unit/mL (3 mL) subcutaneous RxNorm: 1328298 Inject 36 Unit(s) Subcutaneous TID in addition to sliding scale 10/08/19 22 Inactive cholecalciferol (vitamin D3) 1,250 mcg (50,000 unit) capsule RxNorm: 620514 Take 1 Capsule(s) Oral QW once a week 10/08/19 Inactive Novofine Autocover 30 gauge x 1/3 needle RxNorm: Use 1 Miscellaneous UD as directed Use 1 needle as directed to administer insulin 5 times a day Dx:E11.42. 10/03/19 Inactive ok to substitute with any covered alternative pen needle benzoyl peroxide 10 % topical cleanser RxNorm: 896757 Apply 1 Application Topical QD apply to face, wash rinse and dry once daily (may change to QOD if drying) 08/19/19 022 Inactive (%covered by insurance) #60ml refill 11 dx: acne benzoyl peroxide 10 % topical cleanser RxNorm: 157048 Apply 1 Application Topical QD apply to face, wash rinse and dry once daily (may change to QOD if drying) 08/19/19 022 Inactive (%covered by insurance) #60ml refill 11 dx: acne benzoyl peroxide 10 % topical cleanser RxNorm: 126555 Apply 1 Application Topical QD apply to face, wash rinse and dry once daily (may change to QOD if drying) 08/19/19 22 022 Inactive (%covered by insurance) #60ml refill 11 dx: acne Lyrica 50 mg capsule RxNorm: 975289 Take 1 Capsule(s) Oral QAM every morning Take 1 capsule by mouth once daily 08/19/19 22 022 Inactive benzoyl peroxide 10 % topical cleanser RxNorm: 464652 Apply 1 Application Topical QD apply to face, wash rinse and dry once daily (may change to QOD if drying) 08/19/19 22 022 Inactive (%covered by insurance) #60ml refill 11 dx: acne Lyrica 100 mg capsule RxNorm: 496050 Take 1 Capsule(s) Oral QHS every night at bedtime Take 1 capsule by mouth once daily at bedtime 08/19/19 22 022 Inactive Lyrica 100 mg capsule RxNorm: 986017 Take 1 Capsule(s) Oral QHS every night at bedtime Take 1 capsule by mouth once daily at bedtime 08/16/19 22 022 Inactive Lyrica 50 mg capsule RxNorm: 378628 Take 1 Capsule(s) Oral QAM every morning Take 1 capsule by mouth once daily 08/16/19 22 022 Inactive Levemir FlexTouch U-100 Insulin 100 unit/mL (3 mL) subcutaneous pen RxNorm: 586743 Inject 86 Unit(s) Subcutaneous BID 08/05/19 22 022 Inactive d/c 83units BID Lyrica 100 mg capsule RxNorm: 118897 Take 1 Capsule(s) Oral QHS every night at bedtime Take 1 capsule by mouth once daily at bedtime 07/14/19 22 022 Inactive Lyrica 50 mg capsule RxNorm: 142672 Take 1 Capsule(s) Oral QAM every morning Take 1 capsule by mouth once daily 07/14/19 22 022 Inactive Levemir FlexTouch U-100 Insulin 100 unit/mL (3 mL) subcutaneous pen RxNorm: 191256 Inject 83 Unit(s) Subcutaneous BID 07/08/19 22 [...] test strip hydralazine 50 mg tablet RxNorm: 100937 Take 1 Tablet(s) Oral QID 05/05/20 21 022 Inactive venlafaxine ER 225 mg tablet,extended release 24 hr RxNorm: 515588 Take 1 Tablet(s) Oral QD 05/05/20 21 021 Inactive venlafaxine ER 225 mg tablet,extended release 24 hr RxNorm: 146453 Take 1 Tablet(s) Oral QD 05/05/20 21 022 Inactive isosorbide mononitrate ER 30 mg tablet,extended release 24 hr RxNorm: 287181 Take 1 Tablet(s) Oral QD 05/05/20 21 024 Inactive hydralazine 50 mg tablet RxNorm: 141174 Take 1 Tablet(s) Oral QID 05/05/20 21 021 Inactive aspirin 81 mg tablet,delayed release RxNorm: 228201 Take 1 Tablet(s) Oral QD 03/31/20 21 022 Inactive Vitamin D2 1,250 mcg (50,000 unit) capsule RxNorm: 7737431 Take 1 Capsule(s) Oral QW once a week x 12 weeks 03/31/20 21 022 Inactive Vitamin D2 1,250 mcg (50,000 unit) capsule RxNorm: 3427788 Take 1 Capsule(s) Oral QW once a week 03/31/20 021 Inactive Zetia 10 mg tablet RxNorm: 825381 Take 1 Tablet(s) Oral QD 03/31/20 024 Inactive Zetia 10 mg tablet RxNorm: 671508 Take 1 Tablet(s) Oral QD 03/31/20 021 Inactive hydralazine 25 mg tablet RxNorm: 390778 Take 1 Tablet(s) Oral QID 03/31/20 021 Inactive hydralazine 25 mg tablet RxNorm: 371240 Take 1 Tablet(s) Oral QID 03/31/20 021 Inactive hydralazine 10 mg tablet RxNorm: 570735 Take 1 Tablet(s) Oral QID 03/03/20 021 Inactive cephalexin 500 mg tablet RxNorm: 194066 Take 1 Tablet(s) Oral QID 02/27/20 021 Inactive cephalexin 500 mg tablet RxNorm: 608802 Take 1 Tablet(s) Oral QID 02/27/20 021 Inactive lisinopril 40 mg tablet RxNorm: 465860 Take 1 Tablet(s) Oral QD 02/11/20 21 023 Inactive Eliquis 5 mg tablet RxNorm: 0593875 Take 1 Tablet(s) Oral BID 01/05/20 21 025 Inactive Eliquis 5 mg tablet RxNorm: 9212955 Take 2 Tablet(s) Oral QD 01/01/20 21 021 Inactive Lyrica 50 mg capsule RxNorm: 310010 Take 1 Capsule(s) Oral QAM every morning 12/24/19 21 021 Inactive Lyrica 100 mg capsule RxNorm: 871280 Take 1 Capsule(s) Oral QHS every night at bedtime 12/24/19 21 021 Inactive clotrimazole 1 % topical cream RxNorm: 066242 Apply to right foot and toes Topical BID 12/04/19 21 023 Inactive metoprolol succinate ER 200 mg tablet,extended release 24 hr RxNorm: 708451 Take 1 Tablet(s) Oral QD 12/04/19 21 023 Inactive ciprofloxacin 500 mg tablet RxNorm: 875321 Take 1 Tablet(s) Oral QD 11/30/19 21 021 Inactive DX ofloxacin otic drops Accu-Chek Guide test strips RxNorm: USE 1 TO CHECK GLUCOSE 4 TIMES DAILY AND NEEDED 11/15/19 21 023 Inactive Blood Glucose Test strips RxNorm: Use 1 Test Strip QID at PRN 11/05/19 21 023 Inactive E11.42 lisinopril 30 mg tablet RxNorm: 368981 Take 1 Tablet(s) Oral QD 10/30/19 21 021 Inactive lisinopril 20 mg tablet RxNorm: 558798 Take 1 Tablet(s) Oral QD 10/23/19 021 Inactive lisinopril 20 mg tablet RxNorm: 165820 Take 1 Tablet(s) Oral QD 10/23/19 21 021 Inactive lisinopril 10 mg tablet RxNorm: 113831 Take 1 Tablet(s) Oral QD 10/02/19 21 021 Inactive icosapent ethyl 1 gram capsule RxNorm: 1370977 Take 2 Capsule(s) (2 gm) Oral BID with meals 09/12/19 024 Inactive Okay to dispense one 2gm tab if you have that available. icosapent ethyl 1 gram capsule RxNorm: 7686664 Take 2 Capsule(s) Oral BID 09/12/19 21 021 Inactive Okay to dispense one 2gm tab if you have that available. amlodipine 10 mg tablet RxNorm: 024297 Take 1 Tablet(s) Oral QD 09/04/19 21 021 Inactive aspirin 81 mg tablet,delayed release RxNorm: 711204 Take 1 Tablet(s) Oral QD 09/04/19 21 021 Inactive Levemir FlexTouch U-100 Insulin 100 unit/mL (3 mL) subcutaneous pen RxNorm: 659125 Inject 150 Unit(s) Subcutaneous BID 09/04/19 21 022 Inactive venlafaxine ER 150 mg tablet,extended release 24 hr RxNorm: 509892 Take 1 Tablet(s) Oral QD 09/04/19 Inactive clotrimazole-betame thasone 1 %-0.05 % topical cream RxNorm: 384930 Apply to rash on red area on left abdomen/chest Topical BID 08/10/19 21 Inactive amlodipine 5 mg tablet RxNorm: 757583 Take 1 Tablet(s) Oral QD 07/31/19 Inactive cephalexin 500 mg tablet RxNorm: 834357 Take 1 Tablet(s) Oral BID BID - Twice Daily 07/31/19 Inactive Start 08/01/20 pantoprazole 40 mg tablet,delayed release RxNorm: 476943 Take 1 Tablet(s) Oral QAM every morning 07/08/19 Inactive clopidogrel 75 mg tablet RxNorm: 519255 Take 1 Tablet(s) Oral QD 07/08/19 Inactive Blood Glucose Test strips RxNorm: Use 1 Test Strip QID at PRN 07/08/19 Inactive E11.42 senna 8.6 mg tablet RxNorm: 892770 Take 1 Tablet(s) Oral QD 07/08/19 Inactive Novolog Flexpen U-100 Insulin aspart 100 unit/mL (3 mL) subcutaneous RxNorm: 7453402 Administer per sliding scale Milliliter(s) Subcutaneous TID 151-200: 10 u; 201-250: 20 u; 251-300: 30 u; 301-350: 40 u; 351-400: 50 u. 07/08/19 Inactive lisinopril 5 mg tablet RxNorm: 316707 Take 1 Tablet(s) Oral QD 07/08/19 Inactive Novolog Flexpen U-100 Insulin aspart 100 unit/mL (3 mL) subcutaneous RxNorm: 5028834 Inject 85 Unit(s) Subcutaneous TID 07/08/19 Inactive pravastatin 80 mg tablet RxNorm: 653200 Take 1 Tablet(s) Oral QHS every night at bedtime 07/08/19 023 Inactive clotrimazole 1 % topical cream RxNorm: 708537 Apply to bilateral groin areas Topical BID 07/08/19 022 Inactive metoprolol succinate ER 200 mg tablet,extended release 24 hr RxNorm: 652937 Take 1 Tablet(s) Oral QD 07/08/19 021 Inactive Vitamin D3 25 mcg (1,000 unit) tablet RxNorm: 544966 Take 1 Tablet(s) Oral QD 07/08/19 021 Inactive isosorbide dinitrate 30 mg tablet RxNorm: 267284 Take 1 Tablet(s) Oral QD 07/08/19 021 Inactive carbamazepine 200 mg tablet RxNorm: 926754 Take 1 Tablet(s) Oral BID 07/08/19 21 025 Inactive Levemir FlexTouch U-100 Insulin 100 unit/mL (3 mL) subcutaneous pen RxNorm: 506908 Inject 140 Unit(s) Subcutaneous BID 07/08/19 021 Inactive torsemide 20 mg tablet RxNorm: 557604 Take 1 Tablet(s) Oral QD 07/08/19 21 023 Inactive venlafaxine 75 mg tablet RxNorm: 575625 Take 1 Tablet(s) Oral QD 07/08/19 021 Inactive acetaminophen 500 mg tablet RxNorm: 451507 Take 1 Tablet(s) Oral TID as needed for headache 06/18/19 021 Inactive acetaminophen 500 mg tablet RxNorm: 983736 Take 1 Tablet(s) Oral TID as needed for headache 06/18/19 021 Inactive Lyrica 100 mg capsule RxNorm: 085009 Take 1 Capsule(s) Oral QHS every night at bedtime 06/11/19 021 Inactive Lyrica 50 mg capsule RxNorm: 407706 Take 1 Capsule(s) Oral QAM every morning 06/10/19 21 021 Inactive hydrocortisone 2.5 % topical cream RxNorm: 061694 Apply to bilateral groin creases Topical BID 05/15/20 20 021 Inactive clotrimazole 1 % topical cream RxNorm: 249740 Apply to bilateral groin areas Topical BID 05/15/20 20 021 Inactive Lyrica 50 mg capsule RxNorm: 716500 Take 1 Capsule(s) Oral QAM every morning 05/14/20 20 020 Inactive Lyrica 100 mg capsule RxNorm: 154821 Take 1 Capsule(s) Oral QHS every night [...] Inactive Nystop 100,000 unit/gram topical powder RxNorm: 958111 Apply to abd folds, under breasts and L side of groin Topical BID x 14 days, then BID PRN 04/08/20 20 020 Inactive dx: yeast dermatitis Lyrica 100 mg capsule RxNorm: 696959 Take 1 Capsule(s) Oral QHS every night at bedtime 03/13/20 20 Inactive Lyrica 50 mg capsule RxNorm: 019344 Take 1 Capsule(s) Oral QAM every morning 03/13/20 20 020 Inactive ketoconazole 2 % shampoo RxNorm: 022982 Apply Topical two times a week with showers 03/11/20 20 024 Inactive cholecalciferol (vitamin D3) 50 mcg (2,000 unit) tablet RxNorm: 127321 Take 1 Tablet(s) Oral QD 03/11/20 20 021 Inactive Zetia 10 mg tablet RxNorm: 173678 Take 1 Tablet(s) Oral QD 03/07/20 20 021 Inactive Zetia 10 mg tablet RxNorm: 085876 Take 1 Tablet(s) Oral QD 03/07/20 20 Inactive Lyrica 50 mg capsule RxNorm: 206533 Take 1 Capsule(s) Oral QAM every morning 02/15/20 20 Inactive Lyrica 100 mg capsule RxNorm: 908542 Take 1 Capsule(s) Oral QHS every night at bedtime 02/15/20 Inactive Lyrica 100 mg capsule RxNorm: 195050 Take 1 Capsule(s) Oral QHS every night at bedtime 02/15/20 Inactive Lyrica 50 mg capsule RxNorm: 568296 Take 1 Capsule(s) Oral QAM every morning 02/15/20 Inactive venlafaxine ER 75 mg capsule,extended release 24 hr RxNorm: 886028 Take 3 Capsule(s) Oral QD 06/12/19 023 Inactive polyethylene glycol 3350 17 gram/dose oral powder RxNorm: 641142 Take 17=1 capful Gram(s) Oral BID as needed mix with 4-8oz of liquid 06/12/19 22 024 Inactive icosapent ethyl 1 gram capsule RxNorm: 1268141 Take 2 Capsule(s) (2 gm) Oral BID with meals 10/07/19 023 Inactive Okay to dispense one 2gm tab if you have that available. Levemir FlexTouch U-100 Insulin 100 unit/mL (3 mL) subcutaneous pen RxNorm: 399271 Inject 80 Unit(s) Subcutaneous BID 07/14/19 023 Inactive metoprolol succinate ER 200 mg tablet,extended release 24 hr RxNorm: 527195 Take 1 Tablet(s) Oral QD 08/12/19 025 Inactive loperamide 2 mg capsule RxNorm: 038223 Take 1 Capsule(s) Oral QID as needed 09/06/19 025 Inactive hydralazine 50 mg tablet RxNorm: 788830 Take 1 Tablet(s) Oral QID 08/12/19 025 Inactive Soft Touch Lancets RxNorm: miscellaneous 03/04/20 025 Inactive Novolog Flexpen U-100 Insulin aspart 100 unit/mL (3 mL) subcutaneous RxNorm: 1724391 Insert 30 Unit(s) Subcutaneous TID with meals [...] INELIG NEG SCRN DEPRES SNOMED CT: 428 [id number] CPT-4: G8510 01/09/2025 REMIS 11M NOT PHQ-9 SCORE <5 CPT-4: G9510 DEPRESSION SCREEN ANNUAL CPT-4: G0444 025 PT INELIG NEG SCRN DEPRES SNOMED CT: 428 [id number] CPT-4: G8510 01/09/2025 REMIS 11M NOT PHQ-9 SCORE <5 CPT-4: G9510 Toenail Debridement CPT-4: 75982 01/09/2025 DEPRESSION SCREEN ANNUAL CPT-4: G0444 025 PT INELIG NEG SCRN DEPRES SNOMED CT: 428 [id number] CPT-4: G8510 01/09/2025 HG A1C LEVEL 7.0-7.9% CPT-4: 3051F 01/09/2025 SYS BP LESS 140 CPT-4: G8752 01/09/2025 CUI BP LESS 90 CPT-4: G8754 01/09/2025 REMIS 11M NOT PHQ-9 SCORE <5 CPT-4: G9510 Vital Signs Date Vital 01/09/2025 Blood Pressure 1: 134/78 Code: 8480-6 BMI: NaN Code: 23602-0 Heart Rate 1: 82 bpm Code: 8867-4 [...] Encounter Performer Location Location Address Codes Date (82738) Home Visit - Est Pt, moderate Diagnosis: Candidal intertrigo[ICD10: B37.2] Diagnosis: Hypokalemia[ICD10: E87.6] Diagnosis: Pulmonary nodule[ICD10: R91.1] Diagnosis: Type 2 diabetes mellitus with diabetic polyneuropathy, with long-term current use of insulin[ICD10: E11.42] Diagnosis: Hypertensive heart disease without heart failure[ICD10: I11.9] Diagnosis: Type 2 diabetes mellitus with diabetic chronic kidney disease[ICD10: E11.22] Diagnosis: CKD stage 3a, GFR 45-59 ml/min[SNOMED: 555846233] Diagnosis: Onychogryposis[ICD1 0: L60.2] Harrison Munson [facility] [place] [facility] [address] [address] [place] [id number] CPT-4: 18435 01/09/2025 Plan of Care Planned Activity Notes Codes Status Date Referral: [facility] Radiology/Imaging WPtel: [address] [facility] [place] Referral No Records Received 10/20/2024 Appointment: Brian Munson WPtel: [address] [place], [place] [id number] [place] F/U 08/08/2024 Appointment: Brian Munson WPtel: [address] [place], [place] [id number] [place] F/U 07/11/2024 Referral: [facility]/Endocrinology WPtel: [address] [place], [place] [id number] [place] Referral No Records Received 07/10/2024 Appointment: Brian Munson WPtel: [address] [place], [place] [id number] AWV 02/08/2024 Appointment: Brian Munson WPtel: [address] [place], [place] [id number] [place] F/U 01/11/2024 Appointment: Sandra Clark WPtel: [address] [place], [place] [phone] Telehealth Psych Follow Up 12/09 Appointment: Tapan Shirley WPtel: [address] [place], [place] [phone] [place] TCM 10/26/2022 Referral: [facility] WPtel: [address], [address] [id number] [place] Referral Records Received 09/21/2022 Appointment: Tapan Shirley WPtel: [address] [facility] [address] [id number] [place] F/U 08/11/2022 Appointment: Tapan Shirley WPtel: [address] [facility] [address] [id number] [place] F/U 07/14/2022 Appointment: Tapan Shirley WPtel: [address] [facility] [address] [id number] [place] F/U 02/10/2022 Referral: [facility] WPtel: [address] [id number] [place] Referral Completed 05/28/2021 Referral: General Cardiology Referral Complet ed 01/03/2021 Referral: General Psychologist Referral Close d Referral: General Psychiatrist Referral Patient/Family Scheduling Appointment Referral: Shyla Avina [facility] WPtel: [id number] [place] Referral Facility Scheduling Appointment Referral: General Physical [...] Sister Jyotsna involved in his care cell# [phone] Guardian: Giulia (tapan met in person 09/01/21), [...] order K recheck 10.23.2024: Potassium recheck 4.0. 8.: BMP K 4.0, Na 138, Creatinine 1.35H, eGFR 58L, BUN 24.9H. Ca 9.0. BG 363H. A1c 7.9H. Colon & Rectal Surgery visit scheduled for 06.19.2023 with Matilde Pérez PA-C. Endocrinology appointment 05.26.2024 with Jessa Webster MD at [facility]. Start Pioglitazone 15 mg QD. Stop Basaglar insulin. Increase Ozempic 2 mg once wkly. Continue Humalin R U-500 100 units with meals TID. FOLLOW UP 2 MONTHS. If BG >400 add 50 units to next scheduled dose of Humalin R U 500 insulin 01/08/2025 Pulmonary nodule Completed since last visit. Results shared with Leonid today. FU Chest CT : Compared to Chest CT. FU pulmonary nodule. No suspicious pulmonary nodule. Right renal cyst is again noted. No further follow up required. (original pulm nodule seen in ER and recommended year FU). No further orders or recommendations. Hypertensive heart disease without heart failure Chronic On multiple antihypertensives Hospital follow up visit earlier this month we ordered BMP lab work for review - 12.26.2024: BMP K 4.0, Na 138, Creatinine 1.35H, eGFR 58L, BUN 24.9H. Ca 9.0. BG 363H. Results shared with Leonid today. Vital signs assessed at each PCP visit. Onychogryposis Toenails trimmed today - enlongation causes pain with compression socks. Staff cannot complete cares due to diabetes diagnosis requires PCP cares. Hypokalemia Chronic Increased risk for further complications due to high insulin needs for diabetic control potassium recheck (4.0). potassium 4.0. Result shared with Leonid. Continue potassium supplementation TID. Type 2 diabetes mellitus with diabetic chronic kidney disease CKD Stage 3a 12.26.2024: BMP K 4.0, Na 138, Creatinine 1.35H, eGFR 58L (Stage 3a), BUN 24.9H. Ca 9.0. BG 363H Control BP as appropriate for age, risk for falls, and life expectancy. Avoid nephrotoxic medications. Renal dose medications as appropriate. Type 2 diabetes mellitus with diabetic polyneuropathy, with long-term current use of insulin CHRONIC Endocrinology Jessa Webster MD at [facility]. Continue close follow up with new manager endoscopy Continue medication regimen set forth by specialty team. PCP will defer diabetes management for specialist PCP will follow up on BG log at each visit and consult nursing staff to ensure Leonid has the needed supplies for diabetes management, and continue to encourage healthy dietary intake and increased physical activity as able. 09.08.2024: A1c 9.8%. 12.26.2024 A1c 7.9% - results shared with Leonid. BG log reviewed. CKD stage 3a, GFR 45-59 ml/min Chronic diabetes type II Sees Endocrinology 12.26.2024: BMP K 4.0, Na 138, Creatinine 1.35H, eGFR 58L (Stage 3a), BUN 24.9H. Ca 9.0. BG 363H Will monitor closely - last eGFR was stage 2 - further progression noted. Discussed with Leonid. Nephrology referral will be appropriate if further decline is noted. Candidal intertrigo Nystatin powder was PRN although since last visit PCP has scheduled this BID as nursing reported increased redness and moisture in abdominal folds. Further worsening has occurred since Nystatin order and Clotrimazole cream has been ordered. Personal hygiene stressed today. Monitor closely for skin breakdown - S&S of infection and notify PCP of concerns via [employer] message. 01/09/2025
--- OUTSIDE RECORDS SUMMARY | 2025-01-30 22:01 | XMS_ITS | CCD ---
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 022 Inactive Abilify 15 mg tablet RxNorm: 267376 1/2 Tablet(s) Oral QD 03/10/20 22 023 Inactive Shingrix (PF) 50 mcg/0.5 mL intramuscular suspension, kit RxNorm: 5965932 Administer 1/2 Milliliter(s) Intramuscular QD one time shingrix step 2 ( step 1 given 11/04/21) WITH needle - Nursing please administer upon arrival and once administered post a bridge message with date of administration, supervisor functional testing, expiration date, and lot# so we can update [facility] 02/18/20 22 022 Inactive dispense with needle Shingrix (PF) 50 mcg/0.5 mL intramuscular suspension, kit RxNorm: 4953623 Administer 1/2 Milliliter(s) Intramuscular QD one time shingrix step 2 ( step 1 given 11/04/21) WITH needle - Nursing please administer upon arrival and once administered post a bridge message with date of administration, supervisor functional testing, expiration date, and lot# so we can update [facility] 02/18/20 22 022 Inactive dispense with needle Lyrica 100 mg capsule RxNorm: 323743 Take 1 Capsule(s) Oral QAM every morning 01/08/20 22 022 Inactive d/c 50mg dose acetaminophen 500 mg tablet RxNorm: 551077 Take 1 Tablet(s) Oral TID 01/08/20 22 022 Inactive d/c PRN order Lyrica 150 mg capsule RxNorm: 857340 Take 1 Capsule(s) Oral QHS every night at bedtime 01/08/20 22 023 Inactive d/c 100mg dose polyethylene glycol 3350 17 gram/dose oral powder RxNorm: 007009 Take 17=1 capful Gram(s) Oral QD mix with 4-8oz of liquid 01/08/20 22 025 Inactive take this in addition to BID prn order Abilify 5 mg tablet RxNorm: 212231 Take 1 Tablet(s) Oral QD take 1 tab po QD #30 refill 5 dx: MDD 12/12/19 22 022 Inactive Abilify 5 mg tablet RxNorm: 432278 Take 1 Tablet(s) Oral QD take 1 tab po QD #30 refill 5 dx: MDD 12/12/19 22 022 Inactive Novolog Flexpen U-100 Insulin aspart 100 unit/mL (3 mL) subcutaneous RxNorm: 8018063 Inject 42 Unit(s) Subcutaneous TID in addition to sliding scale 12/10/19 22 022 Inactive d/c 36u chlorthalidone 25 mg tablet RxNorm: 480998 Take 1 Tablet(s) Oral QAM every morning 12/10/19 22 023 Inactive pregabalin 50 mg capsule RxNorm: 830145 Take 1 Capsule(s) Oral QAM every morning 11/12/19 22 022 Inactive tetanus-diphtheria toxoids-Td 2 Lf unit-2 Lf unit/0.5 mL IM suspension RxNorm: 139 Take 0.5 Miscellaneous Intramuscular 11/12/19 22 022 Inactive need tdap - nursing to administer upon arrival pregabalin 50 mg capsule RxNorm: 574303 Take 1 Capsule(s) Oral QAM every morning 10/16/19 22 022 Inactive pregabalin 50 mg capsule RxNorm: 167418 Take 1 Capsule(s) Oral QAM every morning 10/16/19 22 022 Inactive pregabalin 50 mg capsule RxNorm: 502609 1 Capsule(s) Oral QAM every morning 10/15/19 22 022 Inactive Shingrix (PF) 50 mcg/0.5 mL intramuscular suspension, kit RxNorm: 6182303 Administer 1/2 Milliliter(s) Intramuscular one time Nursing please administer upon arrival and once administered post a bridge message with date of administration, supervisor functional testing, expiration date, and lot# so we can update [facility]. 10/09/19 22 022 Inactive shingrix step 1 Shingrix (PF) 50 mcg/0.5 mL intramuscular suspension, kit RxNorm: 1028547 Administer 1/2 Milliliter(s) Intramuscular one time Nursing please administer upon arrival and once administered post a bridge message with date of administration, supervisor functional testing, expiration date, and lot# so we can [...] aspart 100 unit/mL (3 mL) subcutaneous RxNorm: 6725962 Inject 10 Unit(s) Subcutaneous QHS every night at bedtime with nighttime snack 10/08/19 22 Inactive Shingrix (PF) 50 mcg/0.5 mL intramuscular suspension, kit RxNorm: 4088655 ADMINISTER 2-DOSE SERIES PER CDC GUIDELINES 10/08/19 22 Active Shingrix (PF) 50 mcg/0.5 mL intramuscular suspension, kit RxNorm: 6069026 ADMINISTER 2-DOSE SERIES PER CDC GUIDELINES 10/08/19 22 Inactive Novolog Flexpen U-100 Insulin aspart 100 unit/mL (3 mL) subcutaneous RxNorm: 4285989 Inject 36 Unit(s) Subcutaneous TID in addition to sliding scale 10/08/19 22 Inactive cholecalciferol (vitamin D3) 1,250 mcg (50,000 unit) capsule RxNorm: 355010 Take 1 Capsule(s) Oral QW once a week 10/08/19 22 Inactive Novofine Autocover 30 gauge x 1/3 needle RxNorm: Use 1 Miscellaneous UD as directed Use 1 needle as directed to administer insulin 5 times a day Dx:E11.42. 10/03/19 22 Inactive ok to substitute with any covered alternative pen needle benzoyl peroxide 10 % topical cleanser RxNorm: 332711 Apply 1 Application Topical QD apply to face, wash rinse and dry once daily (may change to QOD if drying) 08/19/19 22 022 Inactive (%covered by insurance) #60ml refill 11 dx: acne benzoyl peroxide 10 % topical cleanser RxNorm: 073352 Apply 1 Application Topical QD apply to face, wash rinse and dry once daily (may change to QOD if drying) 08/19/19 22 022 Inactive (%covered by insurance) #60ml refill 11 dx: acne benzoyl peroxide 10 % topical cleanser RxNorm: 937551 Apply 1 Application Topical QD apply to face, wash rinse and dry once daily (may change to QOD if drying) 08/19/19 22 022 Inactive (%covered by insurance) #60ml refill 11 dx: acne Lyrica 50 mg capsule RxNorm: 938125 Take 1 Capsule(s) Oral QAM every morning Take 1 capsule by mouth once daily 08/19/19 022 Inactive benzoyl peroxide 10 % topical cleanser RxNorm: 817682 Apply 1 Application Topical QD apply to face, wash rinse and dry once daily (may change to QOD if drying) 08/19/19 022 Inactive (%covered by insurance) #60ml refill 11 dx: acne Lyrica 100 mg capsule RxNorm: 267737 Take 1 Capsule(s) Oral QHS every night at bedtime Take 1 capsule by mouth once daily at bedtime 08/19/19 22 022 Inactive Lyrica 100 mg capsule RxNorm: 141920 Take 1 Capsule(s) Oral QHS every night at bedtime Take 1 capsule by mouth once daily at bedtime 08/16/19 22 Inactive Lyrica 50 mg capsule RxNorm: 654613 Take 1 Capsule(s) Oral QAM every morning Take 1 capsule by mouth once daily 08/16/19 22 022 Inactive Levemir FlexTouch U-100 Insulin 100 unit/mL (3 mL) subcutaneous pen RxNorm: 321282 Inject 86 Unit(s) Subcutaneous BID 08/05/19 22 022 Inactive d/c 83units BID Lyrica 100 mg capsule RxNorm: 299222 Take 1 Capsule(s) Oral QHS every night at bedtime Take 1 capsule by mouth once daily at bedtime 07/14/19 22 Inactive Lyrica 50 mg capsule RxNorm: 212835 Take 1 Capsule(s) Oral QAM every morning Take 1 capsule by mouth once daily 07/14/19 22 Inactive Levemir FlexTouch U-100 Insulin 100 unit/mL (3 mL) subcutaneous pen RxNorm: 360342 Inject 83 Unit(s) Subcutaneous BID 07/08/19 22 [...] test strip hydralazine 50 mg tablet RxNorm: 363822 Take 1 Tablet(s) Oral QID 05/05/20 Inactive venlafaxine ER 225 mg tablet,extended release 24 hr RxNorm: 977796 Take 1 Tablet(s) Oral QD 05/05/20 Inactive venlafaxine ER 225 mg tablet,extended release 24 hr RxNorm: 164280 Take 1 Tablet(s) Oral QD 05/05/20 022 Inactive isosorbide mononitrate ER 30 mg tablet,extended release 24 hr RxNorm: 379511 Take 1 Tablet(s) Oral QD 05/05/20 024 Inactive hydralazine 50 mg tablet RxNorm: 907774 Take 1 Tablet(s) Oral QID 05/05/20 Inactive aspirin 81 mg tablet,delayed release RxNorm: 682630 Take 1 Tablet(s) Oral QD 03/31/20 022 Inactive Vitamin D2 1,250 mcg (50,000 unit) capsule RxNorm: 7508275 Take 1 Capsule(s) Oral QW once a week x 12 weeks 03/31/20 Inactive Vitamin D2 1,250 mcg (50,000 unit) capsule RxNorm: 0721102 Take 1 Capsule(s) Oral QW once a week 03/31/20 Inactive Zetia 10 mg tablet RxNorm: 085804 Take 1 Tablet(s) Oral QD 03/31/20 024 Inactive Zetia 10 mg tablet RxNorm: 219801 Take 1 Tablet(s) Oral QD 03/31/20 Inactive hydralazine 25 mg tablet RxNorm: 216823 Take 1 Tablet(s) Oral QID 03/31/20 021 Inactive hydralazine 25 mg tablet RxNorm: 742885 Take 1 Tablet(s) Oral QID 03/31/20 021 Inactive hydralazine 10 mg tablet RxNorm: 824440 Take 1 Tablet(s) Oral QID 03/03/20 021 Inactive cephalexin 500 mg tablet RxNorm: 880780 Take 1 Tablet(s) Oral QID 02/27/20 021 Inactive cephalexin 500 mg tablet RxNorm: 105053 Take 1 Tablet(s) Oral QID 02/27/20 021 Inactive lisinopril 40 mg tablet RxNorm: 441989 Take 1 Tablet(s) Oral QD 02/11/20 023 Inactive Eliquis 5 mg tablet RxNorm: 3856727 Take 1 Tablet(s) Oral BID 01/05/20 21 025 Inactive Eliquis 5 mg tablet RxNorm: 9781552 Take 2 Tablet(s) Oral QD 01/01/20 21 021 Inactive Lyrica 50 mg capsule RxNorm: 861566 Take 1 Capsule(s) Oral QAM every morning 12/24/19 021 Inactive Lyrica 100 mg capsule RxNorm: 939694 Take 1 Capsule(s) Oral QHS every night at bedtime 12/24/19 021 Inactive clotrimazole 1 % topical cream RxNorm: 497107 Apply to right foot and toes Topical BID 12/04/19 21 023 Inactive metoprolol succinate ER 200 mg tablet,extended release 24 hr RxNorm: 181935 Take 1 Tablet(s) Oral QD 12/04/19 023 Inactive ciprofloxacin 500 mg tablet RxNorm: 424138 Take 1 Tablet(s) Oral QD 11/30/19 021 Inactive DX ofloxacin otic drops Accu-Chek Guide test strips RxNorm: USE 1 TO CHECK GLUCOSE 4 TIMES DAILY AND NEEDED 11/15/19 21 023 Inactive Blood Glucose Test strips RxNorm: Use 1 Test Strip QID at PRN 11/05/19 21 023 Inactive E11.42 lisinopril 30 mg tablet RxNorm: 243523 Take 1 Tablet(s) Oral QD 10/30/19 21 021 Inactive lisinopril 20 mg tablet RxNorm: 092341 Take 1 Tablet(s) Oral QD 10/23/19 21 021 Inactive lisinopril 20 mg tablet RxNorm: 381507 Take 1 Tablet(s) Oral QD 10/23/19 21 021 Inactive lisinopril 10 mg tablet RxNorm: 130679 Take 1 Tablet(s) Oral QD 10/02/19 21 021 Inactive icosapent ethyl 1 gram capsule RxNorm: 4516541 Take 2 Capsule(s) (2 gm) Oral BID with meals 09/12/19 21 024 Inactive Okay to dispense one 2gm tab if you have that available. icosapent ethyl 1 gram capsule RxNorm: 6926943 Take 2 Capsule(s) Oral BID 09/12/19 21 021 Inactive Okay to dispense one 2gm tab if you have that available. amlodipine 10 mg tablet RxNorm: 297721 Take 1 Tablet(s) Oral QD 09/04/19 21 021 Inactive aspirin 81 mg tablet,delayed release RxNorm: 077542 Take 1 Tablet(s) Oral QD 09/04/19 21 021 Inactive Levemir FlexTouch U-100 Insulin 100 unit/mL (3 mL) subcutaneous pen RxNorm: 997297 Inject 150 Unit(s) Subcutaneous BID 09/04/19 21 022 Inactive venlafaxine ER 150 mg tablet,extended release 24 hr RxNorm: 535746 Take 1 Tablet(s) Oral QD 09/04/19 21 021 Inactive clotrimazole-betame thasone 1 %-0.05 % topical cream RxNorm: 736709 Apply to rash on red area on left abdomen/chest Topical BID 08/10/19 21 021 Inactive amlodipine 5 mg tablet RxNorm: 301147 Take 1 Tablet(s) Oral QD 07/31/19 21 021 Inactive cephalexin 500 mg tablet RxNorm: 630300 Take 1 Tablet(s) Oral BID BID - Twice Daily 07/31/19 21 021 Inactive Start 08/01/20 pantoprazole 40 mg tablet,delayed release RxNorm: 877509 Take 1 Tablet(s) Oral QAM every morning 07/08/19 025 Inactive clopidogrel 75 mg tablet RxNorm: 589214 Take 1 Tablet(s) Oral QD 07/08/19 021 Inactive Blood Glucose Test strips RxNorm: Use 1 Test Strip QID at PRN 07/08/19 21 021 Inactive E11.42 senna 8.6 mg tablet RxNorm: 903969 Take 1 Tablet(s) Oral QD 07/08/19 025 Inactive Novolog Flexpen U-100 Insulin aspart 100 unit/mL (3 mL) subcutaneous RxNorm: 4450294 Administer per sliding scale Milliliter(s) Subcutaneous TID 151-200: 10 u; 201-250: 20 u; 251-300: 30 u; 301-350: 40 u; 351-400: 50 u. 07/08/19 022 Inactive lisinopril 5 mg tablet RxNorm: 395027 Take 1 Tablet(s) Oral QD 07/08/19 021 Inactive Novolog Flexpen U-100 Insulin aspart 100 unit/mL (3 mL) subcutaneous RxNorm: 4172618 Inject 85 Unit(s) Subcutaneous TID 07/08/19 022 Inactive pravastatin 80 mg tablet RxNorm: 849585 Take 1 Tablet(s) Oral QHS every night at bedtime 07/08/19 21 023 Inactive clotrimazole 1 % topical cream RxNorm: 539435 Apply to bilateral groin areas Topical BID 07/08/19 21 022 Inactive metoprolol succinate ER 200 mg tablet,extended release 24 hr RxNorm: 647787 Take 1 Tablet(s) Oral QD 07/08/19 021 Inactive Vitamin D3 25 mcg (1,000 unit) tablet RxNorm: 089393 Take 1 Tablet(s) Oral QD 07/08/19 021 Inactive isosorbide dinitrate 30 mg tablet RxNorm: 643188 Take 1 Tablet(s) Oral QD 07/08/19 21 021 Inactive carbamazepine 200 mg tablet RxNorm: 732649 Take 1 Tablet(s) Oral BID 07/08/19 21 025 Inactive Levemir FlexTouch U-100 Insulin 100 unit/mL (3 mL) subcutaneous pen RxNorm: 167454 Inject 140 Unit(s) Subcutaneous BID 07/08/19 21 021 Inactive torsemide 20 mg tablet RxNorm: 404843 Take 1 Tablet(s) Oral QD 07/08/19 21 023 Inactive venlafaxine 75 mg tablet RxNorm: 291819 Take 1 Tablet(s) Oral QD 07/08/19 021 Inactive acetaminophen 500 mg tablet RxNorm: 593071 Take 1 Tablet(s) Oral TID as needed for headache 06/18/19 21 021 Inactive acetaminophen 500 mg tablet RxNorm: 009394 Take 1 Tablet(s) Oral TID as needed for headache 06/18/19 021 Inactive Lyrica 100 mg capsule RxNorm: 599235 Take 1 Capsule(s) Oral QHS every night at bedtime 06/11/19 21 021 Inactive Lyrica 50 mg capsule RxNorm: 056032 Take 1 Capsule(s) Oral QAM every morning 06/10/19 21 021 Inactive hydrocortisone 2.5 % topical cream RxNorm: 041191 Apply to bilateral groin creases Topical BID 05/15/20 20 021 Inactive clotrimazole 1 % topical cream RxNorm: 914671 Apply to bilateral groin areas Topical BID 05/15/20 20 021 Inactive Lyrica 50 mg capsule RxNorm: 722543 Take 1 Capsule(s) Oral QAM every morning 05/14/20 20 020 Inactive Lyrica 100 mg capsule RxNorm: 144828 Take 1 Capsule(s) Oral QHS every night [...] Inactive Nystop 100,000 unit/gram topical powder RxNorm: 297285 Apply to abd folds, under breasts and L side of groin Topical BID x 14 days, then BID PRN 04/08/20 20 Inactive dx: yeast dermatitis Lyrica 100 mg capsule RxNorm: 655466 Take 1 Capsule(s) Oral QHS every night at bedtime 03/13/20 20 Inactive Lyrica 50 mg capsule RxNorm: 612663 Take 1 Capsule(s) Oral QAM every morning 03/13/20 20 Inactive ketoconazole 2 % shampoo RxNorm: 371094 Apply Topical two times a week with showers 03/11/20 20 Inactive cholecalciferol (vitamin D3) 50 mcg (2,000 unit) tablet RxNorm: 070907 Take 1 Tablet(s) Oral QD 03/11/20 20 021 Inactive Zetia 10 mg tablet RxNorm: 340787 Take 1 Tablet(s) Oral QD 03/07/20 20 021 Inactive Zetia 10 mg tablet RxNorm: 780460 Take 1 Tablet(s) Oral QD 03/07/20 20 Inactive Lyrica 50 mg capsule RxNorm: 250149 Take 1 Capsule(s) Oral QAM every morning 02/15/20 20 Inactive Lyrica 100 mg capsule RxNorm: 381691 Take 1 Capsule(s) Oral QHS every night at bedtime 02/15/20 20 Inactive Lyrica 100 mg capsule RxNorm: 943609 Take 1 Capsule(s) Oral QHS every night at bedtime 02/15/20 20 Inactive Lyrica 50 mg capsule RxNorm: 916994 Take 1 Capsule(s) Oral QAM every morning 02/15/20 20 020 Inactive venlafaxine ER 75 mg capsule,extended release 24 hr RxNorm: 130685 Take 3 Capsule(s) Oral QD 06/12/19 023 Inactive polyethylene glycol 3350 17 gram/dose oral powder RxNorm: 476722 Take 17=1 capful Gram(s) Oral BID as needed mix with 4-8oz of liquid 06/12/19 22 024 Inactive icosapent ethyl 1 gram capsule RxNorm: 1027433 Take 2 Capsule(s) (2 gm) Oral BID with meals 10/07/19 23 023 Inactive Okay to dispense one 2gm tab if you have that available. Levemir FlexTouch U-100 Insulin 100 unit/mL (3 mL) subcutaneous pen RxNorm: 501018 Inject 80 Unit(s) Subcutaneous BID 07/14/19 23 023 Inactive metoprolol succinate ER 200 mg tablet,extended release 24 hr RxNorm: 494314 Take 1 Tablet(s) Oral QD 08/12/19 23 025 Inactive loperamide 2 mg capsule RxNorm: 581368 Take 1 Capsule(s) Oral QID as needed 09/06/19 25 025 Inactive hydralazine 50 mg tablet RxNorm: 379437 Take 1 Tablet(s) Oral QID 08/12/19 23 025 Inactive Soft Touch Lancets RxNorm: miscellaneous 03/04/20 24 025 Inactive Novolog Flexpen U-100 Insulin aspart 100 unit/mL (3 mL) subcutaneous RxNorm: 3243428 Insert 30 Unit(s) Subcutaneous TID with meals [...] Date Patient Education: Patient Medication Summary Completed 12/21/2024 Referral: [facility]iology/Imaging WPtel: [address] [place], [place] [phone] Referral No Records Received 10/20/2024 Appointment: Brian Munson WPtel: [address] [place], [place] [id number] [place] F/U 08/08/2024 Appointment: Brian Munson WPtel: [address] [place], [place] [phone] [place] F/U 07/11/2024 Referral: [facility]/Endocrinology WPtel: [address] [facility] [address] [id number] [place] Referral No Records Received 07/10/2024 Appointment: Brian Munson WPtel: [address] [facility] 300 [id number] [place] AWV 02/08/2024 Appointment: Brian Munson WPtel: [address] [facility] 300 [id number] [place] F/U 01/11/2024 Appointment: Sandra Clark WPtel: [address] [facility] 300 [id number] Telehealth Psych Follow Up 12/09 Appointment: Tapan Shirley WPtel: [address] [facility] 300 [id number] TCM 10/26/2022 Referral: [facility] WPtel: [address], [address] [id number] [place] Referral Records Received 09/21/2022 Appointment: Tapan Shirley WPtel: [address] [facility] 300 [id number] [place] F/U 08/11/2022 Appointment: Tapan Shirley WPtel: [address] [facility] 300 [id number] [place] F/U 07/14/2022 Appointment: Tapan Shirley WPtel: [address] [facility] 300 [id number] [place] F/U 02/10/2022 Referral: [facility] WPtel: [address] [id number] [place] Referral Completed 05/28/2021 Referral: General Cardiology Referral Complet ed 01/03/2021 Referral: General Psychologist Referral Close d Referral: General Psychiatrist Referral Patient/Family Scheduling Appointment Referral: Shyla Gleason [facility] WPtel: [id number] Referral Facility Scheduling Appointment Referral: General [...] Sister Jyotsna involved in his care cell# [phone] Guardian: Giulia (tapan met in person 09/01/21), [...]
--- OUTSIDE RECORDS SUMMARY | 2025-01-30 22:03 | XMS_ITS | CCD ---
Author Organization Unknown Care Team Providers Care [employer]worker [employer] Name Role Phone Harrison Durham Primary Care Provider Leona vailable Unavailable Chronic Care Management Unavaila ble Summary Purpose DataExchange Insurance Providers Payer name Policy type / Coverage type Covered republican ID Effective Begin Date Effective End Date [place] [id number] Unknown Unknown [place] B [id number] Unknown Unknown Family history Sister Brittany Suggs [...] on file 07/11/[address]: 038434015 Never smoker 01/16 Sexually Active? Unknown No [...] Unknown [facility] 09/03/[address]: 447307725 No Alcohol Consum ption 09/02/2020 Allergies, Adverse Reactions, Alerts Substance Reaction Codes Entered Date Inactivated Date Status * NO KNOWN FOOD ALLERGIES Unknown 07/13/2023 No Inactive Date Active LISINOPRIL RxNorm: 79860 02/12/2020 No Inactive Da te Active Metformin HCl Unknown 02/12/2020 No Inactive Cristiano e Active * NO KNOWN ENVIRONMENTAL ALLERGIES Unknown 07/13/2023 No Inactive Date Active Problems Condition Codes Effective Dates Condition St atus Body mass index [BMI] 60.0-69.9, adult ICD-10: Z68.44 ICD-9: V85.44 12/21/2024 Active History of recent hospitalization SNOMED CT: 370138941 ICD-10: Z92.89 ICD-9: V13.9 12/21/2024 Active Hypertensive heart disease without heart failure ICD-10: I11.9 ICD-9: 402.90 12/21/2024 Active Hypokalemia ICD-10: E87.6 ICD-9: 276.8 12/21/2024 Active Mixed incontinence SNOMED CT: 32381902 ICD-10: N39.46 ICD-9: 788.33 12/21/2024 Active TASHI (obstructive sleep apnea) SNOMED CT: 80877872 ICD-10: G47.33 ICD-9: 327.23 12/21/2024 Active 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 01/03/20 25 025 Active clotrimazole 1 % topical cream RxNorm: 462153 apply one application to affected and surrounding area(s) of skin BID until clinical resolution (abdominal and thigh folds), typically 1-4 weeks. Pause nystatin powder use while using clotrimazole cream. 01/03/20 25 025 Inactive Culturelle 10 billion cell capsule RxNorm: 064392 Take 1 Capsule(s) Oral QD 11/08/19 25 026 Active Culturelle 10 billion cell capsule RxNorm: 064183 Take 1 Capsule(s) Oral QD 11/08/19 25 025 Inactive hydrocodone 5 mg-acetaminophen 325 mg tablet RxNorm: 594200 Take 1 Tablet(s) Oral Q4H every four hours as needed for pain PRN for severe acute dental pain 10/21/19 25 025 Inactive penicillin V potassium 500 mg tablet RxNorm: 907811 Take 1 Tablet(s) Oral QID Take until dental appointment per ER recommendation 10/21/19 25 025 Inactive hydrocodone 5 mg-acetaminophen 325 mg tablet RxNorm: 769893 Take 1 Tablet(s) Oral Q4H every four hours as needed for pain PRN for severe acute dental pain 10/21/19 25 025 Inactive penicillin V potassium 500 mg tablet RxNorm: 916381 Take 1 Tablet(s) Oral QID Take until dental appointment per ER recommendation 10/21/19 25 025 Inactive potassium chloride ER 20 mEq tablet,extended release RxNorm: 207434 Take 2 Tablet(s) Oral TID (dx: hypokalemia) 09/14/19 25 026 Active potassium chloride ER 20 mEq tablet,extended release RxNorm: 585298 Take 2 Tablet(s) Oral TID (dx: hypokalemia) 09/14/19 25 025 Inactive loperamide 2 mg tablet RxNorm: 019429 Take 2 Tablet(s) Oral UD as directed [...] Date Active senna 8.6 mg tablet RxNorm: 131394 Take 1 Tablet(s) Oral QD as needed and 1 tab BID prn 09/06/19 No Stop Date Active cyclobenzaprine 10 mg tablet RxNorm: 647449 Take 1 Tablet(s) Oral QHS every night at bedtime as needed 09/06/19 No Stop Date Active loperamide 2 mg tablet RxNorm: 775560 Take 2 Tablet(s) Oral UD as directed as needed 2 tabs after first loose stool then 1 tab after each subsequent stool PRN Do not exceed 4 doses in 24 hours. Do not administer until after 3 loose stools. 09/06/19 026 Active pioglitazone 15 mg tablet RxNorm: 627504 Take 1 Tablet(s) Oral QD 09/06/19 No Stop Date Active loperamide 2 mg tablet RxNorm: 787859 Take 2 Tablet(s) Oral UD as directed as needed 2 tabs after first loose stool then 1 tab after each subsequent stool PRN Do not exceed 4 doses in 24 hours. Do not administer until after 3 loose stools. 09/06/19 025 Inactive pregabalin 100 mg capsule RxNorm: 852466 1 CAPSULE BY MOUTH EVERY MORNING (DX: NEUROPATHY) 08/23/19 25 025 Active FACILITY IS REQUESTING REFILL. PRIOR RX HAS BEEN EXHAUSTED. THANK YOU. pregabalin 150 mg capsule RxNorm: 018379 1 CAPSULE BY MOUTH AT BEDTIME (DX: NEUROPATHY) 08/21/19 25 025 Inactive FACILITY IS REQUESTING A REFILL OF THIS MEDICATION, THANK YOU! senna 8.6 mg tablet RxNorm: 693495 Take 1 Tablet(s) Oral QD as needed for constipation on day 2 of no bowel movement 08/09/19 25 025 Inactive Miralax 17 gram/dose oral powder RxNorm: 755980 Administer 17 Gram(s) Oral QD as needed for constipation on day 3 of no bowel movement 08/09/19 25 025 Inactive senna 8.6 mg tablet RxNorm: 630768 Take 1 Tablet(s) Oral QD as needed for constipation on day 2 of no bowel movement 08/09/19 25 025 Inactive Miralax 17 gram/dose oral powder RxNorm: 161553 Administer 17 Gram(s) Oral QD as needed for constipation on day 3 of no bowel movement 08/09/19 25 025 Inactive pregabalin 100 mg capsule RxNorm: 088090 Take 1 Capsule(s) Oral QAM every morning [...] (Concentrated) Insulin 500 unit/mL subcutaneous soln RxNorm: 211297 Inject 100 Unit(s) Subcutaneous AC before meals Three times daily before meals. 07/24/19 25 025 Inactive ammonium lactate 12 % topical cream RxNorm: 148566 Apply 1 Application Topical BID 07/20/19 No Stop Date Active ezetimibe 10 mg tablet RxNorm: 025863 Take 1 Tablet(s) Oral QD 07/18/19 No Stop Date Active senna 8.6 mg tablet RxNorm: 847806 Take 1 Tablet(s) Oral QD 07/18/19 25 025 Inactive metoprolol succinate ER 200 mg tablet,extended release 24 hr RxNorm: 612025 Take 1 Tablet(s) Oral QD 06/19/19 25 No Stop Date Active pantoprazole 40 mg tablet,delayed release RxNorm: 775121 Take 1 Tablet(s) Oral QAM every morning 06/19/19 25 No Stop Date Active hydralazine 50 mg tablet RxNorm: 363953 Take 1 Tablet(s) Oral QID 06/19/19 25 No Stop Date Active carbamazepine 200 mg tablet RxNorm: 782080 Take 1 Tablet(s) Oral BID 06/19/19 25 No Stop Date Active amlodipine 10 mg tablet RxNorm: 925098 Take 1 Tablet(s) Oral QD 06/19/19 25 No Stop Date Active Eliquis 5 mg tablet RxNorm: 8389355 Take 1 Tablet(s) Oral BID 06/19/19 25 No Stop Date Active pen needle, diabetic 30 gauge x 3/16 RxNorm: Use 1 6 times per day w/insulin 06/14/19 25 026 Active pen needle, diabetic 30 gauge x 3/16 RxNorm: Use 1 needle 6 times per day w/insulin 06/14/19 25 025 Inactive nystatin 100,000 unit/gram topical powder RxNorm: 866350 Apply 1 Application Topical BID as needed abdominal/breast/ groin folds 05/24/19 25 026 Active pregabalin 100 mg capsule RxNorm: 983495 Take 1 Capsule(s) Oral QAM every morning 05/22/19 25 025 Inactive nystatin 100,000 unit/gram topical powder RxNorm: 505872 Apply 1 Application Topical BID as needed abdominal/breast/ groin folds 04/11/20 24 024 Inactive chlorthalidone 25 mg tablet RxNorm: 992555 Take 1 Tablet(s) Oral QAM every morning 04/06/20 24 No Stop Date Active pregabalin 150 mg capsule RxNorm: 980687 Take 1 Capsule(s) Oral QHS every night at bedtime 03/31/20 24 024 Inactive Vascepa 1 gram capsule RxNorm: 4662255 Take 2 Capsule(s) Oral BID 03/30/20 24 025 Active rosuvastatin 40 mg tablet RxNorm: 244836 1 TAB ORALLY EVERY EVENING (DX:CORONARY ARTERY DISEASE) 03/28/20 24 No Stop Date Active venlafaxine ER 75 mg capsule,extended release 24 hr RxNorm: 168896 3 CAPS (225MG) ORALLY DAILY (DX: MOOD DISORDER) 03/28/20 24 No Stop Date Active pregabalin 100 mg capsule RxNorm: 734550 Take 1 Capsule(s) Oral QAM every morning 03/20/20 24 024 Inactive cholecalciferol (vitamin D3) 1,250 mcg (50,000 unit) capsule RxNorm: 567227 Take 1 Capsule(s) Oral QW once a [...] Insulin 100 unit/mL (3 mL) subcutaneous RxNorm: 9729071 Inject 40 Unit(s) Subcutaneous BID 03/07/20 Inactive Please dispense one month supply. Humulin R U-500 (Concentrated) Insulin 500 unit/mL subcutaneous soln RxNorm: 772514 Inject 100 Unit(s) Subcutaneous AC before meals [...] PRN) to be use with new Accu [place] meter 03/04/20 Inactive ok to substitute with any covered alternative test strip FreeStyle Chema 2 Sensor kit RxNorm: Use UD as directed 03/02/20 24 024 Inactive Pen Needle 30 gauge x 16 RxNorm: Pen(s) Use 1 needle as directed TID 03/02/20 24 Inactive nystatin 100,000 unit/gram topical powder RxNorm: 460144 Apply 1 Application Topical BID as needed [...] (Concentrated) Insulin 500 unit/mL subcutaneous soln RxNorm: 134940 Inject 100 Unit(s) Subcutaneous TID 02/17/20 24 024 Inactive Humulin R U-500 (Concentrated) Insulin 500 unit/mL subcutaneous soln RxNorm: 653760 Inject 100 Unit(s) Subcutaneous TID 02/10/20 24 024 Inactive Basaglar KwikPen U-100 Insulin 100 unit/mL (3 mL) subcutaneous RxNorm: 5935265 Inject 30 Unit(s) Subcutaneous BID 02/10/20 24 024 Inactive Please dispense one month supply. pregabalin 100 mg capsule RxNorm: 308059 Take 1 Capsule(s) Oral QAM every morning 02/07/20 24 024 Inactive isosorbide mononitrate ER 60 mg tablet,extended release 24 hr RxNorm: 945780 Take 1 Tablet(s) Oral QD 02/01/20 24 025 Inactive aripiprazole 15 mg tablet RxNorm: 220016 Take 1/2 Tablet(s) Oral QD 02/01/20 24 025 Inactive torsemide 20 mg tablet RxNorm: 364986 1 TAB ORALLY DAILY (DX: EDEMA) 01/27/20 24 No Stop Date Active potassium chloride ER 20 mEq tablet,extended release(part/cryst) RxNorm: 5361170 2 TABS (40MEQ) ORALLY TWICE DAILY (DX: HYPOKALEMIA) 01/27/20 24 025 Inactive cephalexin 500 mg capsule RxNorm: 792216 Take 1 Capsule(s) Oral QID 12/17/19 24 024 Inactive cephalexin 500 mg capsule RxNorm: 597243 Take 1 Capsule(s) Oral QID 12/17/19 24 024 Inactive acetaminophen 500 mg tablet RxNorm: 676612 (MAX APAP:4GM/24HR) Take 1 Tablet(s) Oral TID as needed for pain 12/10/19 24 Inactive torsemide 20 mg tablet RxNorm: 989228 Take 1 Tablet(s) Oral QD 10/26/19 24 Inactive potassium chloride ER 20 mEq tablet,extended release RxNorm: 345699 Take 2 Tablet(s) Oral BID 10/26/19 24 024 Inactive torsemide 20 mg tablet RxNorm: 349275 Take 1 Tablet(s) Oral QD 10/26/19 24 Inactive potassium chloride ER 20 mEq tablet,extended release RxNorm: 640016 Take 2 Tablet(s) Oral BID 10/26/19 24 025 Inactive Artificial Tears (PF) 0.1 %-0.3 % drops in a dropperette RxNorm: 075633 Apply 1-2 Drop(s) Both eyes BID as needed 09/28/19 24 Inactive erythromycin 5 mg/gram (0.5 %) eye ointment RxNorm: 477570 Apply 1 Application Both eyes QHS every night at bedtime Instill ~1 cm ribbon into affected eye 09/28/19 24 Inactive Artificial Tears (PF) 0.1 %-0.3 % drops in a dropperette RxNorm: 771719 Apply 1-2 Drop(s) Both eyes BID as needed 09/28/19 24 024 Inactive erythromycin 5 mg/gram (0.5 %) eye ointment RxNorm: 393174 Apply 1 Application Both eyes QHS every night at bedtime Instill ~1 cm ribbon into affected eye 09/28/19 24 024 Inactive acetaminophen 500 mg tablet RxNorm: 732861 (MAX APAP:4GM/24HR) Take 1 Tablet(s) Oral TID as needed for pain 09/24/19 24 024 Inactive carvedilol 25 mg tablet RxNorm: 690549 Take 1 Tablet(s) Oral QD 09/08/19 24 No Stop Date Active pregabalin 100 mg capsule RxNorm: 102449 Take 1 Capsule(s) Oral QAM every morning 09/07/19 24 024 Inactive bisacodyl 10 mg rectal suppository RxNorm: 153100 Insert 1 Suppository Rectal QD as needed 07/13/19 24 No Stop Date Active ketoconazole 2 % shampoo RxNorm: 992052 Apply 1 Application Topical UD as directed 07/13/19 24 No Stop Date Active Ozempic 1 mg/dose (4 mg/3 mL) subcutaneous pen injector RxNorm: 7420897 Inject 1 Milligram(s) Subcutaneous QW once a week 07/13/19 24 No Stop Date Active Guaifenesin AC 10 mg-100 mg/5 mL oral liquid RxNorm: 177026 Take 10 Milliliter(s) Oral Q4H every four hours as needed 07/13/19 24 No Stop Date Active hydrocortisone 2.5 % topical cream RxNorm: 203995 Apply 1 Application Topical BID as needed 07/13/19 24 No Stop Date Active rosuvastatin 40 mg tablet RxNorm: 663259 Take 1 Tablet(s) Oral QPM every evening 07/13/19 24 024 Inactive ezetimibe 10 mg tablet RxNorm: 621809 Take 1 Tablet(s) Oral QD 07/13/19 24 025 Inactive polyethylene glycol 3350 17 gram/dose oral powder RxNorm: 206079 Take 17 Gram(s) Oral BID as needed mix in 4-8ox water 07/13/19 24 025 Inactive aripiprazole 15 mg tablet RxNorm: 459853 Take 1/2 Tablet(s) Oral QD 07/13/19 24 024 Inactive isosorbide mononitrate ER 60 mg tablet,extended release 24 hr RxNorm: 792620 Take 1 Tablet(s) Oral QD 07/13/19 24 024 Inactive ammonium lactate 12 % topical cream RxNorm: 494634 Apply 1 Application Topical BID 07/13/19 24 025 Inactive rosuvastatin 20 mg sprinkle capsule RxNorm: 0437241 Take 1 Capsule(s) Oral QD 07/13/19 24 025 Inactive Vascepa 1 gram capsule RxNorm: 9751530 Take 2 Capsule(s) Oral BID 07/13/19 24 024 Inactive venlafaxine ER 75 mg capsule,extended release 24 hr RxNorm: 272139 Take 3 Capsule(s) Oral QD 07/13/19 24 024 Inactive Basaglar KwikPen U-100 Insulin 100 unit/mL (3 mL) subcutaneous RxNorm: 8509511 Inject 30U SubQ twice daily 07/07/19 24 024 Inactive Please dispense one month supply. Basaglar KwikPen U-100 Insulin 100 unit/mL (3 mL) subcutaneous RxNorm: 4897242 Inject 30U SubQ twice daily 07/07/19 24 024 Inactive Please dispense one month supply. pregabalin 150 mg capsule RxNorm: 462089 Take 1 Capsule(s) Oral QHS every night at bedtime 07/05/19 24 024 Inactive pregabalin 150 mg capsule RxNorm: 653864 Take 1 Capsule(s) Oral QHS every night at bedtime 07/05/19 24 024 Inactive polyethylene glycol 3350 17 gram/dose oral powder RxNorm: 615408 Take 1 Packet Oral QD as needed (1 packet = 17g) mix with 4-8oz of liquid 06/15/19 24 024 Inactive bisacodyl 10 mg rectal suppository RxNorm: 265239 Insert one suppository per rectum once daily as needed for constipation 06/15/19 24 024 Inactive bisacodyl 10 mg rectal suppository RxNorm: 553176 Insert one suppository per rectum once daily as needed for constipation 06/15/19 24 024 Inactive pregabalin 100 mg capsule RxNorm: 020299 Take 1 Capsule(s) Oral QAM every morning 04/27/20 024 Inactive Levemir FlexPen 100 unit/mL (3 mL) solution subcutaneous insulin pen RxNorm: 153790 Inject 30 Unit(s) Subcutaneous BID 04/27/20 024 Inactive rosuvastatin 40 mg tablet RxNorm: 572179 Take 1 Tablet(s) Oral QPM every evening 04/16/20 024 Inactive D/C rosuvastatin 20mg venlafaxine ER 75 mg capsule,extended release 24 hr RxNorm: 823595 Take 3 Capsule(s) Oral QD 04/14/20 023 Inactive pregabalin 100 mg capsule RxNorm: 620816 Take 1 Capsule(s) Oral QAM every morning [...] strip clotrimazole 1 % topical cream RxNorm: 206664 Take apply topically to abdominal folds twice daily for 14 days 03/12/20 024 Inactive Ozempic 1 mg/dose (4 mg/3 mL) subcutaneous pen injector RxNorm: 8823678 Inject 1 Milligram(s) Subcutaneous QW once a week 03/11/20 023 Inactive rosuvastatin 20 mg tablet RxNorm: 739877 Take 1 Tablet(s) Oral QD 02/26/20 023 Inactive d/c pravastatin 80mg Ozempic 1 mg/dose (4 mg/3 mL) subcutaneous pen injector RxNorm: 9056852 Inject 1 Milligram(s) Subcutaneous QW once a week 02/20/20 23 023 Inactive pregabalin 150 mg capsule RxNorm: 994730 Take 1 Capsule(s) Oral HS at bed time 02/19/20 23 023 Inactive pregabalin 100 mg capsule RxNorm: 668815 Take 1 Capsule(s) Oral QAM every morning 02/18/20 23 023 Inactive venlafaxine ER 75 mg capsule,extended release 24 hr RxNorm: 329016 Take 3 Capsule(s) Oral QD 02/04/20 023 Inactive FreeStyle Chema 2 Sensor kit RxNorm: use as directed 02/04/20 23 023 Inactive FreeStyle Chema 2 Sensor kit RxNorm: use as directed 02/04/20 024 Inactive fluconazole 150 mg tablet RxNorm: 162447 Take 1 Tablet(s) Oral on day 3 and on day 6 02/03/20 024 Inactive venlafaxine ER 150 mg capsule,extended release 24 hr RxNorm: 887101 Take 1 Capsule(s) Oral QD 02/03/20 023 Inactive chlorthalidone 25 mg tablet RxNorm: 308532 Take 1 Tablet(s) Oral QAM every morning 02/03/20 23 024 Inactive acetaminophen 500 mg tablet RxNorm: 339252 1 TABLET ORALLY 3 TIMES DAILY (MAX APAP:4GM/24HR) 12/15/19 23 023 Inactive potassium chloride ER 20 mEq tablet,extended release RxNorm: 966858 Take 1 Tablet(s) Oral BID 12/09/19 23 024 Inactive d/c 20mEq once daily (sent from hospital) clotrimazole 1 % topical cream RxNorm: 118710 apply 1g topically to top of feet and in between toes BID 12/09/19 23 025 Inactive nystatin 100,000 unit/gram topical powder RxNorm: 552486 APPLY TO AFFECTED AREAS TOPICALLY 2 TIMES DAILY 11/21/19 23 023 Inactive Nystop 100,000 unit/gram topical powder RxNorm: 567469 Apply to abd folds, under breasts and L side of groin Topical BID x 14 days, then BID PRN 11/20/19 23 023 Inactive dx: yeast dermatitis [place] Ultra Strength 4 %-30 %-10 % topical cream RxNorm: 103270 Apply 1 Gram(s) Topical QID PRN to feet and legs for neuropathic pain 11/11/19 23 024 Inactive hydrocortisone 2.5 % topical cream RxNorm: 026259 Apply 1/2 Gram(s) Topical BID as needed 11/10/19 23 024 Inactive clotrimazole 1 % topical cream RxNorm: 706937 Apply 1/2 Gram(s) Topical BID Apply to affected areas of groin, periarea, and abdominal topically 2 times daily 11/10/19 025 Inactive Levemir FlexPen 100 unit/mL (3 mL) solution subcutaneous insulin pen RxNorm: 357606 Inject 30 Unit(s) Subcutaneous BID 10/07/19 023 Inactive Humulin R U-500 (Concentrated) Insulin 500 unit/mL subcutaneous soln RxNorm: 974616 Inject 100 Unit(s) Subcutaneous TID 10/07/19 024 Inactive Ozempic 0.25 mg or 0.5 mg (2 mg/3 mL) subcutaneous pen injector RxNorm: 3754330 Inject 1/2 Milligram(s) Subcutaneous QW once a week 10/07/19 23 024 Inactive aripiprazole 15 mg tablet RxNorm: 969658 1/2 TAB (7.5MG) ORALLY DAILY (DX:MAJOR DEPRESSIVE DISORDER) 09/23/19 23 023 Inactive Accu-Chek Guide test strips RxNorm: Use 1 Test Strip QID 09/15/19 23 023 Inactive ok to substitute with any covered alternative test strip Lancets,Thin 28 gauge RxNorm: Use 1 as directed QID 09/15/19 23 023 Inactive torsemide 20 mg tablet RxNorm: 912986 Take 1 Tablet(s) Oral BID 09/09/19 23 024 Inactive d/c once daily dosing carvedilol 25 mg tablet RxNorm: 657927 Take 1 Tablet(s) Oral QD 08/25/19 23 024 Inactive pregabalin 150 mg capsule RxNorm: 123143 1 Capsule(s) Oral HS at bed time 08/18/19 23 023 Inactive pregabalin 100 mg capsule RxNorm: 669741 1 Capsule(s) Oral QAM every morning 08/18/19 23 023 Inactive carvedilol 25 mg tablet RxNorm: 844607 1 Tablet(s) Oral QD 07/28/19 23 023 Inactive lisinopril 20 mg tablet RxNorm: 013550 Give 1 Tablet(s) Oral QD 07/28/19 23 023 Inactive Lyrica 150 mg capsule RxNorm: 187756 Take 1 Capsule(s) Oral QHS every night at bedtime 07/19/19 023 Inactive d/c 100mg dose Diflucan 150 mg tablet RxNorm: 160999 Take 1 Tablet(s) Oral QD repeat on day 3 and 6 07/19/19 23 023 Inactive pregabalin 100 mg capsule RxNorm: 272988 Take 1 Capsule(s) Oral QAM every morning 07/19/19 23 023 Inactive gatifloxacin 0.5 % eye drops RxNorm: 614215 Instill 1 Drop(s) as directed TID Instill 1 drop in to affected eye(s) starting 1 day prior to surgery and continue until gone (do not exceed 4 weeks). 07/13/19 23 023 Inactive carvedilol 25 mg tablet RxNorm: 587341 2 Tablet(s) Oral BID 07/13/19 23 023 Inactive Humulin R Regular U-100 Insulin 100 unit/mL injection solution RxNorm: 000088 85 Unit(s) Injection TID 07/13/19 23 023 Inactive ketorolac 0.5 % eye drops RxNorm: 737212 Instill 1 Drop(s) as directed QID Instill 1 drop into affected eye(s) 4 times daily starting 1 day prior to surgery and continue until gone (do not exceed 4 weeks). 07/13/19 23 023 Inactive Diflucan 150 mg tablet RxNorm: 685987 Take 1 Tablet(s) Oral QD repeat on day 3 and 6 06/30/19 23 023 Inactive Accu-Chek Guide test strips RxNorm: Use 1 Test Strip QID Use 1 test strip to monitor blood glucose 4 times daily and as needed. Dx:E11.42. 06/23/19 23 023 Inactive ok to substitute with any covered alternative test strip dextromethorphan-gu aifenesin 10 mg-100 mg/5 mL oral liquid RxNorm: 951837 Take 10 Milliliter(s) Oral every 4 hours as needed for cough 06/19/19 023 Inactive dextromethorphan-gu aifenesin 10 mg-100 mg/5 mL oral liquid RxNorm: 837566 Take 10 Milliliter(s) Oral every 4 hours as needed for cough 06/19/19 023 Inactive Lyrica 150 mg capsule RxNorm: 371414 Take 1 Capsule(s) Oral QHS every night at bedtime 06/18/19 023 Inactive d/c 100mg dose aripiprazole 15 mg tablet RxNorm: 191164 1/2 TAB (7.5MG) ORALLY DAILY (DX:MAJOR DEPRESSIVE DISORDER) 06/05/19 023 Inactive pregabalin 100 mg capsule RxNorm: 358087 1 Capsule(s) Oral QAM every morning 06/02/19 23 023 Inactive Banophen 50 mg capsule RxNorm: 5017384 Take 1 Capsule(s) Oral Q6H every 6 hours as needed 05/19/19 23 No Stop Date Active Novolog Flexpen U-100 Insulin aspart 100 unit/mL (3 mL) subcutaneous RxNorm: 0659773 Inject 10 Unit(s) Subcutaneous QHS every night at bedtime with nighttime snack 04/08/20 22 022 Inactive Novolog Flexpen U-100 Insulin aspart 100 unit/mL (3 mL) subcutaneous RxNorm: 8899744 Inject 42 Unit(s) Subcutaneous TID in addition to sliding scale 04/08/20 22 022 Inactive d/c 36u albuterol sulfate HFA 90 mcg/actuation aerosol inhaler RxNorm: 9810652 Take 2 Puff(s) Inhalation Q4H every four hours as needed as needed for SOB, cough, or wheezing 04/07/20 030 Active Banophen 50 mg capsule RxNorm: 8005044 Take 1 Capsule(s) Oral Q6H every 6 hours as needed 04/06/20 023 Inactive diphenhydramine 50 mg tablet RxNorm: 9551930 Take 1 Tablet(s) Oral Q6H every 6 hours as needed 04/06/20 022 Inactive diphenhydramine 50 mg tablet RxNorm: 8780767 1 Tablet(s) Oral Q6H every 6 hours as needed 04/06/20 022 Inactive Abilify 15 mg tablet RxNorm: 778623 1/2 Tablet(s) Oral QD 03/10/20 023 Inactive Shingrix (PF) 50 mcg/0.5 mL intramuscular suspension, kit RxNorm: 7278208 Administer 1/2 Milliliter(s) Intramuscular QD one time shingrix step 2 ( step 1 given 11/04/21) WITH needle - Nursing please administer upon arrival and once administered post a bridge message with date of administration, dermatology physician, expiration date, and lot# so we can update [facility] 02/18/20 22 022 Inactive dispense with needle Shingrix (PF) 50 mcg/0.5 mL intramuscular suspension, kit RxNorm: 8324171 Administer 1/2 Milliliter(s) Intramuscular QD one time shingrix step 2 ( step 1 given 11/04/21) WITH needle - Nursing please administer upon arrival and once administered post a bridge message with date of administration, dermatology physician, expiration date, and lot# so we can update [facility] 02/18/20 22 022 Inactive dispense with needle Lyrica 100 mg capsule RxNorm: 756460 Take 1 Capsule(s) Oral QAM every morning 01/08/20 022 Inactive d/c 50mg dose acetaminophen 500 mg tablet RxNorm: 053216 Take 1 Tablet(s) Oral TID 01/08/20 22 022 Inactive d/c PRN order Lyrica 150 mg capsule RxNorm: 263178 Take 1 Capsule(s) Oral QHS every night at bedtime 01/08/20 22 023 Inactive d/c 100mg dose polyethylene glycol 3350 17 gram/dose oral powder RxNorm: 402614 Take 17=1 capful Gram(s) Oral QD mix with 4-8oz of liquid 01/08/20 22 025 Inactive take this in addition to BID prn order Abilify 5 mg tablet RxNorm: 166138 Take 1 Tablet(s) Oral QD take 1 tab po QD #30 refill 5 dx: MDD 12/12/19 22 022 Inactive Abilify 5 mg tablet RxNorm: 325001 Take 1 Tablet(s) Oral QD take 1 tab po QD #30 refill 5 dx: MDD 12/12/19 22 022 Inactive Novolog Flexpen U-100 Insulin aspart 100 unit/mL (3 mL) subcutaneous RxNorm: 9087426 Inject 42 Unit(s) Subcutaneous TID in addition to sliding scale 12/10/19 22 022 Inactive d/c 36u chlorthalidone 25 mg tablet RxNorm: 654803 Take 1 Tablet(s) Oral QAM every morning 12/10/19 22 023 Inactive pregabalin 50 mg capsule RxNorm: 166164 Take 1 Capsule(s) Oral QAM every morning 11/12/19 22 022 Inactive tetanus-diphtheria toxoids-Td 2 Lf unit-2 Lf unit/0.5 mL IM suspension RxNorm: 139 Take 0.5 Miscellaneous Intramuscular 11/12/19 22 022 Inactive need tdap - nursing to administer upon arrival pregabalin 50 mg capsule RxNorm: 455382 Take 1 Capsule(s) Oral QAM every morning 10/16/19 22 022 Inactive pregabalin 50 mg capsule RxNorm: 349456 Take 1 Capsule(s) Oral QAM every morning 10/16/19 22 022 Inactive pregabalin 50 mg capsule RxNorm: 339745 1 Capsule(s) Oral QAM every morning 10/15/19 22 022 Inactive Shingrix (PF) 50 mcg/0.5 mL intramuscular suspension, kit RxNorm: 8017934 Administer 1/2 Milliliter(s) Intramuscular one time Nursing please administer upon arrival and once administered post a bridge message with date of administration, dermatology physician, expiration date, and lot# so we can update [facility]. 10/09/19 22 022 Inactive shingrix step 1 Shingrix (PF) 50 mcg/0.5 mL intramuscular suspension, kit RxNorm: 0932834 Administer 1/2 Milliliter(s) Intramuscular one time Nursing please administer upon arrival and once administered post a bridge message with date of administration, dermatology physician, expiration date, and lot# so we can [...] aspart 100 unit/mL (3 mL) subcutaneous RxNorm: 2297788 Inject 10 Unit(s) Subcutaneous QHS every night at bedtime with nighttime snack 10/08/19 22 Inactive Shingrix (PF) 50 mcg/0.5 mL intramuscular suspension, kit RxNorm: 2209741 ADMINISTER 2-DOSE SERIES PER CDC GUIDELINES 10/08/19 22 Active Shingrix (PF) 50 mcg/0.5 mL intramuscular suspension, kit RxNorm: 4847349 ADMINISTER 2-DOSE SERIES PER CDC GUIDELINES 10/08/19 22 Inactive Novolog Flexpen U-100 Insulin aspart 100 unit/mL (3 mL) subcutaneous RxNorm: 4441127 Inject 36 Unit(s) Subcutaneous TID in addition to sliding scale 10/08/19 22 022 Inactive cholecalciferol (vitamin D3) 1,250 mcg (50,000 unit) capsule RxNorm: 606584 Take 1 Capsule(s) Oral QW once a week 10/08/19 024 Inactive Novofine Autocover 30 gauge x 1/3 needle RxNorm: Use 1 Miscellaneous UD as directed Use 1 needle as directed to administer insulin 5 times a day Dx:E11.42. 10/03/19 022 Inactive ok to substitute with any covered alternative pen needle benzoyl peroxide 10 % topical cleanser RxNorm: 818904 Apply 1 Application Topical QD apply to face, wash rinse and dry once daily (may change to QOD if drying) 08/19/19 022 Inactive (%covered by insurance) #60ml refill 11 dx: acne benzoyl peroxide 10 % topical cleanser RxNorm: 615082 Apply 1 Application Topical QD apply to face, wash rinse and dry once daily (may change to QOD if drying) 08/19/19 022 Inactive (%covered by insurance) #60ml refill 11 dx: acne benzoyl peroxide 10 % topical cleanser RxNorm: 844150 Apply 1 Application Topical QD apply to face, wash rinse and dry once daily (may change to QOD if drying) 08/19/19 22 022 Inactive (%covered by insurance) #60ml refill 11 dx: acne Lyrica 50 mg capsule RxNorm: 998389 Take 1 Capsule(s) Oral QAM every morning Take 1 capsule by mouth once daily 08/19/19 022 Inactive benzoyl peroxide 10 % topical cleanser RxNorm: 944054 Apply 1 Application Topical QD apply to face, wash rinse and dry once daily (may change to QOD if drying) 08/19/19 022 Inactive (%covered by insurance) #60ml refill 11 dx: acne Lyrica 100 mg capsule RxNorm: 400081 Take 1 Capsule(s) Oral QHS every night at bedtime Take 1 capsule by mouth once daily at bedtime 08/19/19 22 022 Inactive Lyrica 100 mg capsule RxNorm: 564672 Take 1 Capsule(s) Oral QHS every night at bedtime Take 1 capsule by mouth once daily at bedtime 08/16/19 22 022 Inactive Lyrica 50 mg capsule RxNorm: 488831 Take 1 Capsule(s) Oral QAM every morning Take 1 capsule by mouth once daily 08/16/19 22 022 Inactive Levemir FlexTouch U-100 Insulin 100 unit/mL (3 mL) subcutaneous pen RxNorm: 468303 Inject 86 Unit(s) Subcutaneous BID 08/05/19 22 022 Inactive d/c 83units BID Lyrica 100 mg capsule RxNorm: 234490 Take 1 Capsule(s) Oral QHS every night at bedtime Take 1 capsule by mouth once daily at bedtime 07/14/19 22 022 Inactive Lyrica 50 mg capsule RxNorm: 853354 Take 1 Capsule(s) Oral QAM every morning Take 1 capsule by mouth once daily 07/14/19 22 022 Inactive Levemir FlexTouch U-100 Insulin 100 unit/mL (3 mL) subcutaneous pen RxNorm: 940735 Inject 83 Unit(s) Subcutaneous BID 07/08/19 22 [...] test strip hydralazine 50 mg tablet RxNorm: 843363 Take 1 Tablet(s) Oral QID 05/05/20 21 022 Inactive venlafaxine ER 225 mg tablet,extended release 24 hr RxNorm: 179891 Take 1 Tablet(s) Oral QD 05/05/20 21 021 Inactive venlafaxine ER 225 mg tablet,extended release 24 hr RxNorm: 279540 Take 1 Tablet(s) Oral QD 05/05/20 022 Inactive isosorbide mononitrate ER 30 mg tablet,extended release 24 hr RxNorm: 871421 Take 1 Tablet(s) Oral QD 05/05/20 21 024 Inactive hydralazine 50 mg tablet RxNorm: 551062 Take 1 Tablet(s) Oral QID 05/05/20 21 Inactive aspirin 81 mg tablet,delayed release RxNorm: 279616 Take 1 Tablet(s) Oral QD 03/31/20 022 Inactive Vitamin D2 1,250 mcg (50,000 unit) capsule RxNorm: 4287914 Take 1 Capsule(s) Oral QW once a week x 12 weeks 03/31/20 022 Inactive Vitamin D2 1,250 mcg (50,000 unit) capsule RxNorm: 0421958 Take 1 Capsule(s) Oral QW once a week 03/31/20 021 Inactive Zetia 10 mg tablet RxNorm: 420989 Take 1 Tablet(s) Oral QD 03/31/20 21 024 Inactive Zetia 10 mg tablet RxNorm: 876133 Take 1 Tablet(s) Oral QD 03/31/20 21 021 Inactive hydralazine 25 mg tablet RxNorm: 468911 Take 1 Tablet(s) Oral QID 03/31/20 021 Inactive hydralazine 25 mg tablet RxNorm: 048464 Take 1 Tablet(s) Oral QID 03/31/20 021 Inactive hydralazine 10 mg tablet RxNorm: 103904 Take 1 Tablet(s) Oral QID 03/03/20 021 Inactive cephalexin 500 mg tablet RxNorm: 512055 Take 1 Tablet(s) Oral QID 02/27/20 021 Inactive cephalexin 500 mg tablet RxNorm: 903560 Take 1 Tablet(s) Oral QID 02/27/20 021 Inactive lisinopril 40 mg tablet RxNorm: 571310 Take 1 Tablet(s) Oral QD 02/11/20 023 Inactive Eliquis 5 mg tablet RxNorm: 2838340 Take 1 Tablet(s) Oral BID 01/05/20 21 025 Inactive Eliquis 5 mg tablet RxNorm: 2548237 Take 2 Tablet(s) Oral QD 01/01/20 21 021 Inactive Lyrica 50 mg capsule RxNorm: 371958 Take 1 Capsule(s) Oral QAM every morning 12/24/19 21 021 Inactive Lyrica 100 mg capsule RxNorm: 143977 Take 1 Capsule(s) Oral QHS every night at bedtime 12/24/19 21 021 Inactive clotrimazole 1 % topical cream RxNorm: 968549 Apply to right foot and toes Topical BID 12/04/19 21 023 Inactive metoprolol succinate ER 200 mg tablet,extended release 24 hr RxNorm: 152836 Take 1 Tablet(s) Oral QD 12/04/19 21 023 Inactive ciprofloxacin 500 mg tablet RxNorm: 154884 Take 1 Tablet(s) Oral QD 11/30/19 21 021 Inactive DX ofloxacin otic drops Accu-Chek Guide test strips RxNorm: USE 1 TO CHECK GLUCOSE 4 TIMES DAILY AND NEEDED 11/15/19 21 023 Inactive Blood Glucose Test strips RxNorm: Use 1 Test Strip QID at PRN 11/05/19 21 023 Inactive E11.42 lisinopril 30 mg tablet RxNorm: 190570 Take 1 Tablet(s) Oral QD 10/30/19 21 021 Inactive lisinopril 20 mg tablet RxNorm: 121815 Take 1 Tablet(s) Oral QD 10/23/19 21 021 Inactive lisinopril 20 mg tablet RxNorm: 052763 Take 1 Tablet(s) Oral QD 10/23/19 21 021 Inactive lisinopril 10 mg tablet RxNorm: 929810 Take 1 Tablet(s) Oral QD 10/02/19 21 021 Inactive icosapent ethyl 1 gram capsule RxNorm: 4324803 Take 2 Capsule(s) (2 gm) Oral BID with meals 09/12/19 21 024 Inactive Okay to dispense one 2gm tab if you have that available. icosapent ethyl 1 gram capsule RxNorm: 9594816 Take 2 Capsule(s) Oral BID 09/12/19 21 021 Inactive Okay to dispense one 2gm tab if you have that available. amlodipine 10 mg tablet RxNorm: 107495 Take 1 Tablet(s) Oral QD 09/04/19 21 021 Inactive aspirin 81 mg tablet,delayed release RxNorm: 852719 Take 1 Tablet(s) Oral QD 09/04/19 21 021 Inactive Levemir FlexTouch U-100 Insulin 100 unit/mL (3 mL) subcutaneous pen RxNorm: 550433 Inject 150 Unit(s) Subcutaneous BID 09/04/19 21 022 Inactive venlafaxine ER 150 mg tablet,extended release 24 hr RxNorm: 105487 Take 1 Tablet(s) Oral QD 09/04/19 21 021 Inactive clotrimazole-betame thasone 1 %-0.05 % topical cream RxNorm: 167150 Apply to rash on red area on left abdomen/chest Topical BID 08/10/19 21 021 Inactive amlodipine 5 mg tablet RxNorm: 950828 Take 1 Tablet(s) Oral QD 07/31/19 Inactive cephalexin 500 mg tablet RxNorm: 970821 Take 1 Tablet(s) Oral BID BID - Twice Daily 07/31/19 21 021 Inactive Start 08/01/20 pantoprazole 40 mg tablet,delayed release RxNorm: 770121 Take 1 Tablet(s) Oral QAM every morning 07/08/19 025 Inactive clopidogrel 75 mg tablet RxNorm: 640350 Take 1 Tablet(s) Oral QD 07/08/19 021 Inactive Blood Glucose Test strips RxNorm: Use 1 Test Strip QID at PRN 07/08/19 Inactive E11.42 senna 8.6 mg tablet RxNorm: 616050 Take 1 Tablet(s) Oral QD 07/08/19 025 Inactive Novolog Flexpen U-100 Insulin aspart 100 unit/mL (3 mL) subcutaneous RxNorm: 3378676 Administer per sliding scale Milliliter(s) Subcutaneous TID 151-200: 10 u; 201-250: 20 u; 251-300: 30 u; 301-350: 40 u; 351-400: 50 u. 07/08/19 022 Inactive lisinopril 5 mg tablet RxNorm: 140754 Take 1 Tablet(s) Oral QD 07/08/19 021 Inactive Novolog Flexpen U-100 Insulin aspart 100 unit/mL (3 mL) subcutaneous RxNorm: 9524854 Inject 85 Unit(s) Subcutaneous TID 07/08/19 022 Inactive pravastatin 80 mg tablet RxNorm: 945472 Take 1 Tablet(s) Oral QHS every night at bedtime 07/08/19 023 Inactive clotrimazole 1 % topical cream RxNorm: 966086 Apply to bilateral groin areas Topical BID 07/08/19 21 022 Inactive metoprolol succinate ER 200 mg tablet,extended release 24 hr RxNorm: 841012 Take 1 Tablet(s) Oral QD 07/08/19 21 021 Inactive Vitamin D3 25 mcg (1,000 unit) tablet RxNorm: 729952 Take 1 Tablet(s) Oral QD 07/08/19 21 021 Inactive isosorbide dinitrate 30 mg tablet RxNorm: 897772 Take 1 Tablet(s) Oral QD 07/08/19 021 Inactive carbamazepine 200 mg tablet RxNorm: 509424 Take 1 Tablet(s) Oral BID 07/08/19 21 025 Inactive Levemir FlexTouch U-100 Insulin 100 unit/mL (3 mL) subcutaneous pen RxNorm: 382645 Inject 140 Unit(s) Subcutaneous BID 07/08/19 021 Inactive torsemide 20 mg tablet RxNorm: 251961 Take 1 Tablet(s) Oral QD 07/08/19 023 Inactive venlafaxine 75 mg tablet RxNorm: 327168 Take 1 Tablet(s) Oral QD 07/08/19 021 Inactive acetaminophen 500 mg tablet RxNorm: 151422 Take 1 Tablet(s) Oral TID as needed for headache 06/18/19 21 021 Inactive acetaminophen 500 mg tablet RxNorm: 634933 Take 1 Tablet(s) Oral TID as needed for headache 06/18/19 21 021 Inactive Lyrica 100 mg capsule RxNorm: 001458 Take 1 Capsule(s) Oral QHS every night at bedtime 06/11/19 021 Inactive Lyrica 50 mg capsule RxNorm: 467637 Take 1 Capsule(s) Oral QAM every morning 06/10/19 21 021 Inactive hydrocortisone 2.5 % topical cream RxNorm: 107539 Apply to bilateral groin creases Topical BID 05/15/20 20 021 Inactive clotrimazole 1 % topical cream RxNorm: 643168 Apply to bilateral groin areas Topical BID 05/15/20 20 021 Inactive Lyrica 50 mg capsule RxNorm: 120154 Take 1 Capsule(s) Oral QAM every morning 05/14/20 20 020 Inactive Lyrica 100 mg capsule RxNorm: 972630 Take 1 Capsule(s) Oral QHS every night [...] Inactive Nystop 100,000 unit/gram topical powder RxNorm: 902417 Apply to abd folds, under breasts and L side of groin Topical BID x 14 days, then BID PRN 04/08/20 20 Inactive dx: yeast dermatitis Lyrica 100 mg capsule RxNorm: 024267 Take 1 Capsule(s) Oral QHS every night at bedtime 03/13/20 20 Inactive Lyrica 50 mg capsule RxNorm: 578875 Take 1 Capsule(s) Oral QAM every morning 03/13/20 20 Inactive ketoconazole 2 % shampoo RxNorm: 158023 Apply Topical two times a week with showers 03/11/20 20 Inactive cholecalciferol (vitamin D3) 50 mcg (2,000 unit) tablet RxNorm: 027054 Take 1 Tablet(s) Oral QD 03/11/20 20 021 Inactive Zetia 10 mg tablet RxNorm: 908363 Take 1 Tablet(s) Oral QD 03/07/20 20 021 Inactive Zetia 10 mg tablet RxNorm: 255321 Take 1 Tablet(s) Oral QD 03/07/20 20 020 Inactive Lyrica 50 mg capsule RxNorm: 102576 Take 1 Capsule(s) Oral QAM every morning 02/15/20 20 020 Inactive Lyrica 100 mg capsule RxNorm: 232289 Take 1 Capsule(s) Oral QHS every night at bedtime 02/15/20 20 Inactive Lyrica 100 mg capsule RxNorm: 872979 Take 1 Capsule(s) Oral QHS every night at bedtime 02/15/20 20 020 Inactive Lyrica 50 mg capsule RxNorm: 464027 Take 1 Capsule(s) Oral QAM every morning 02/15/20 20 020 Inactive venlafaxine ER 75 mg capsule,extended release 24 hr RxNorm: 117519 Take 3 Capsule(s) Oral QD 06/12/19 023 Inactive polyethylene glycol 3350 17 gram/dose oral powder RxNorm: 490060 Take 17=1 capful Gram(s) Oral BID as needed mix with 4-8oz of liquid 06/12/19 22 024 Inactive icosapent ethyl 1 gram capsule RxNorm: 7288730 Take 2 Capsule(s) (2 gm) Oral BID with meals 10/07/19 23 023 Inactive Okay to dispense one 2gm tab if you have that available. Levemir FlexTouch U-100 Insulin 100 unit/mL (3 mL) subcutaneous pen RxNorm: 875931 Inject 80 Unit(s) Subcutaneous BID 07/14/19 23 023 Inactive metoprolol succinate ER 200 mg tablet,extended release 24 hr RxNorm: 883588 Take 1 Tablet(s) Oral QD 08/12/19 23 025 Inactive loperamide 2 mg capsule RxNorm: 789788 Take 1 Capsule(s) Oral QID as needed 09/06/19 25 025 Inactive hydralazine 50 mg tablet RxNorm: 842611 Take 1 Tablet(s) Oral QID 08/12/19 23 025 Inactive Soft Touch Lancets RxNorm: miscellaneous 03/04/20 24 025 Inactive Novolog Flexpen U-100 Insulin aspart 100 unit/mL (3 mL) subcutaneous RxNorm: 7560172 Insert 30 Unit(s) Subcutaneous TID with meals [...] Planned Activity Notes Codes Status Date Referral: [id number] Referral No Records Received 10/20/2024 Referral: [facility]/Endocrinology WPtel: [address] [facility] [address] [id number] [place] Referral No Records Received 07/10/2024 Referral: [facility] WPtel: [address] [id number] [place] Referral Records Received 09/21/2022 Referral: [facility] WPtel: [address] [id number] [place] Referral Completed 05/28/2021 Referral: General Cardiology Referral Complet ed 01/03/2021 Referral: General Psychologist Referral Close d Referral: General Psychiatrist Referral Patient/Family Scheduling Appointment Referral: Shyla Avina [facility] WPtel: [id number] [place] Referral Facility Scheduling Appointment Referral: [...] Sister Jyotsna involved in his care cell# [phone] Guardian: Giulia (tapan met in person 09/01/21), [...] order K recheck 10.23.2024: Potassium recheck 4.0. 12.26.2024: BMP K 4.0, Na 138, Creatinine 1.35H, eGFR 58L, BUN 24.9H. Ca 9.0. BG 363H. A1c 7.9H. Colon & Rectal Surgery visit scheduled for 06.19.2023 with Matilde Pérez PA-C. Endocrinology appointment 05.26.2024 with Jessa Webster MD at [facility]. Start Pioglitazone 15 mg QD. Stop Basaglar insulin. Increase Ozempic 2 mg once wkly. Continue Humalin R U-500 100 units with meals TID. FOLLOW UP 2 MONTHS. If BG >400 add 50 units to next scheduled dose of Humalin R U 500 insulin 01/08/2025
--- OUTSIDE RECORDS SUMMARY | 2025-01-30 22:10 | XMS_ITS | CCD ---
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 Unknown No [...] Unknown Fdc 09/03/[address]: 529967890 No Alcohol Consum ption 09/02/2020 Allergies, Adverse Reactions, Alerts Substance Reaction Codes Entered Date Inactivated Date Status * NO KNOWN FOOD ALLERGIES Unknown 07/13/2023 No Inactive Date Active LISINOPRIL RxNorm: 89903 02/12/2020 No Inactive Da te Active Metformin HCl Unknown 02/12/2020 No Inactive Cristiano e Active * NO KNOWN ENVIRONMENTAL ALLERGIES Unknown 07/13/2023 No Inactive Date Active Problems Condition Codes Effective Dates Condition St atus Body mass index [BMI] 60.0-69.9, adult ICD-10: Z68.44 ICD-9: V85.44 12/21/2024 Active History of recent hospitalization SNOMED CT: 649024460 ICD-10: Z92.89 ICD-9: V13.9 12/21/2024 Active Hypertensive heart disease without heart failure ICD-10: I11.9 ICD-9: 402.90 12/21/2024 Active Hypokalemia ICD-10: E87.6 ICD-9: 276.8 12/21/2024 Active Mixed incontinence SNOMED CT: 22649009 ICD-10: N39.46 ICD-9: 788.33 12/21/2024 Active TASHI (obstructive sleep apnea) SNOMED CT: 88644346 ICD-10: G47.33 ICD-9: 327.23 12/21/2024 Active 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 ICD-10: Z79.899 ICD-9: V58.69 [...] 701.9 09/07/2023 Resolved Coronary artery disease involving [place] coronary artery of [place] heart, angina presence unspecified ICD-10: [...] USP (current) use of insulin ICD-10: Z79.4 02/10/2022 [...] Instructions Culturelle 10 billion cell capsule RxNorm: 124188 Take 1 Capsule(s) Oral QD 11/08/19 25 026 Active Culturelle 10 billion cell capsule RxNorm: 152110 Take 1 Capsule(s) Oral QD 11/08/19 25 025 Inactive hydrocodone 5 mg-acetaminophen 325 mg tablet RxNorm: 410150 Take 1 Tablet(s) Oral Q4H every four hours as needed for pain PRN for severe acute dental pain 10/21/19 25 025 Inactive penicillin V potassium 500 mg tablet RxNorm: 058219 Take 1 Tablet(s) Oral QID Take until dental appointment per ER recommendation 10/21/19 25 025 Inactive hydrocodone 5 mg-acetaminophen 325 mg tablet RxNorm: 075957 Take 1 Tablet(s) Oral Q4H every four hours as needed for pain PRN for severe acute dental pain 10/21/19 25 025 Inactive penicillin V potassium 500 mg tablet RxNorm: 719717 Take 1 Tablet(s) Oral QID Take until dental appointment per ER recommendation 10/21/19 25 025 Inactive potassium chloride ER 20 mEq tablet,extended release RxNorm: 510035 Take 2 Tablet(s) Oral TID (dx: hypokalemia) 09/14/19 25 026 Active potassium chloride ER 20 mEq tablet,extended release RxNorm: 970324 Take 2 Tablet(s) Oral TID (dx: hypokalemia) 09/14/19 25 025 Inactive loperamide 2 mg tablet RxNorm: 023491 Take 2 Tablet(s) Oral UD as directed [...] Date Active senna 8.6 mg tablet RxNorm: 063672 Take 1 Tablet(s) Oral QD as needed and 1 tab BID prn 09/06/19 No Stop Date Active cyclobenzaprine 10 mg tablet RxNorm: 246398 Take 1 Tablet(s) Oral QHS every night at bedtime as needed 09/06/19 No Stop Date Active loperamide 2 mg tablet RxNorm: 056918 Take 2 Tablet(s) Oral UD as directed as needed 2 tabs after first loose stool then 1 tab after each subsequent stool PRN Do not exceed 4 doses in 24 hours. Do not administer until after 3 loose stools. 09/06/19 026 Active pioglitazone 15 mg tablet RxNorm: 606581 Take 1 Tablet(s) Oral QD 09/06/19 No Stop Date Active loperamide 2 mg tablet RxNorm: 062501 Take 2 Tablet(s) Oral UD as directed as needed 2 tabs after first loose stool then 1 tab after each subsequent stool PRN Do not exceed 4 doses in 24 hours. Do not administer until after 3 loose stools. 09/06/19 025 Inactive pregabalin 100 mg capsule RxNorm: 891585 1 CAPSULE BY MOUTH EVERY MORNING (DX: NEUROPATHY) 08/23/19 Active FACILITY IS REQUESTING REFILL. PRIOR RX HAS BEEN EXHAUSTED. THANK YOU. pregabalin 150 mg capsule RxNorm: 004046 1 CAPSULE BY MOUTH AT BEDTIME (DX: NEUROPATHY) 08/21/19 25 025 Inactive FACILITY IS REQUESTING A REFILL OF THIS MEDICATION, THANK YOU! senna 8.6 mg tablet RxNorm: 768660 Take 1 Tablet(s) Oral QD as needed for constipation on day 2 of no bowel movement 08/09/19 25 025 Inactive Miralax 17 gram/dose oral powder RxNorm: 466922 Administer 17 Gram(s) Oral QD as needed for constipation on day 3 of no bowel movement 08/09/19 25 025 Inactive senna 8.6 mg tablet RxNorm: 576978 Take 1 Tablet(s) Oral QD as needed for constipation on day 2 of no bowel movement 08/09/19 25 025 Inactive Miralax 17 gram/dose oral powder RxNorm: 695248 Administer 17 Gram(s) Oral QD as needed for constipation on day 3 of no bowel movement 08/09/19 25 025 Inactive pregabalin 100 mg capsule RxNorm: 830557 Take 1 Capsule(s) Oral QAM every morning [...] (Concentrated) Insulin 500 unit/mL subcutaneous soln RxNorm: 469182 Inject 100 Unit(s) Subcutaneous AC before meals Three times daily before meals. 07/24/19 25 025 Inactive ammonium lactate 12 % topical cream RxNorm: 520237 Apply 1 Application Topical BID 07/20/19 25 No Stop Date Active ezetimibe 10 mg tablet RxNorm: 851099 Take 1 Tablet(s) Oral QD 07/18/19 25 No Stop Date Active senna 8.6 mg tablet RxNorm: 700232 Take 1 Tablet(s) Oral QD 07/18/19 25 025 Inactive metoprolol succinate ER 200 mg tablet,extended release 24 hr RxNorm: 453925 Take 1 Tablet(s) Oral QD 06/19/19 25 No Stop Date Active pantoprazole 40 mg tablet,delayed release RxNorm: 361121 Take 1 Tablet(s) Oral QAM every morning 06/19/19 25 No Stop Date Active hydralazine 50 mg tablet RxNorm: 517497 Take 1 Tablet(s) Oral QID 06/19/19 25 No Stop Date Active carbamazepine 200 mg tablet RxNorm: 567153 Take 1 Tablet(s) Oral BID 06/19/19 25 No Stop Date Active amlodipine 10 mg tablet RxNorm: 089843 Take 1 Tablet(s) Oral QD 06/19/19 25 No Stop Date Active Eliquis 5 mg tablet RxNorm: 1965230 Take 1 Tablet(s) Oral BID 06/19/19 25 No Stop Date Active pen needle, diabetic 30 gauge x 3/16 RxNorm: Use 1 6 times per day w/insulin 06/14/19 25 026 Active pen needle, diabetic 30 gauge x 3/16 RxNorm: Use 1 needle 6 times per day w/insulin 06/14/19 25 025 Inactive nystatin 100,000 unit/gram topical powder RxNorm: 240160 Apply 1 Application Topical BID as needed abdominal/breast/ groin folds 05/24/19 25 026 Active pregabalin 100 mg capsule RxNorm: 728041 Take 1 Capsule(s) Oral QAM every morning 05/22/19 025 Inactive nystatin 100,000 unit/gram topical powder RxNorm: 547557 Apply 1 Application Topical BID as needed abdominal/breast/ groin folds 04/11/20 24 024 Inactive chlorthalidone 25 mg tablet RxNorm: 221341 Take 1 Tablet(s) Oral QAM every morning 04/06/20 No Stop Date Active pregabalin 150 mg capsule RxNorm: 040020 Take 1 Capsule(s) Oral QHS every night at bedtime 03/31/20 024 Inactive Vascepa 1 gram capsule RxNorm: 6561075 Take 2 Capsule(s) Oral BID 03/30/20 24 025 Active rosuvastatin 40 mg tablet RxNorm: 771124 1 TAB ORALLY EVERY EVENING (DX:CORONARY ARTERY DISEASE) 03/28/20 No Stop Date Active venlafaxine ER 75 mg capsule,extended release 24 hr RxNorm: 435076 3 CAPS (225MG) ORALLY DAILY (DX: MOOD DISORDER) 03/28/20 No Stop Date Active pregabalin 100 mg capsule RxNorm: 100463 Take 1 Capsule(s) Oral QAM every morning 03/20/20 024 Inactive cholecalciferol (vitamin D3) 1,250 mcg (50,000 unit) capsule RxNorm: 549647 Take 1 Capsule(s) Oral QW once a [...] Insulin 100 unit/mL (3 mL) subcutaneous RxNorm: 9900642 Inject 40 Unit(s) Subcutaneous BID 03/07/20 025 Inactive Please dispense one month supply. Humulin R U-500 (Concentrated) Insulin 500 unit/mL subcutaneous soln RxNorm: 393884 Inject 100 Unit(s) Subcutaneous AC before meals [...] PRN) to be use with new Accu [place] meter 03/04/20 024 Inactive ok to substitute with any covered alternative test strip FreeStyle Chema 2 Sensor kit RxNorm: Use UD as directed 03/02/20 Inactive Pen Needle 30 gauge x 09/29 RxNorm: Pen(s) Use 1 needle as directed TID 03/02/20 024 Inactive nystatin 100,000 unit/gram topical powder RxNorm: 765249 Apply 1 Application Topical BID as needed [...] (Concentrated) Insulin 500 unit/mL subcutaneous soln RxNorm: 373973 Inject 100 Unit(s) Subcutaneous TID 02/17/20 24 024 Inactive Humulin R U-500 (Concentrated) Insulin 500 unit/mL subcutaneous soln RxNorm: 281166 Inject 100 Unit(s) Subcutaneous TID 02/10/20 24 024 Inactive Basaglar KwikPen U-100 Insulin 100 unit/mL (3 mL) subcutaneous RxNorm: 7799971 Inject 30 Unit(s) Subcutaneous BID 02/10/20 24 024 Inactive Please dispense one month supply. pregabalin 100 mg capsule RxNorm: 863468 Take 1 Capsule(s) Oral QAM every morning 02/07/20 24 024 Inactive isosorbide mononitrate ER 60 mg tablet,extended release 24 hr RxNorm: 320253 Take 1 Tablet(s) Oral QD 02/01/20 24 025 Inactive aripiprazole 15 mg tablet RxNorm: 839946 Take 1/2 Tablet(s) Oral QD 02/01/20 24 025 Inactive torsemide 20 mg tablet RxNorm: 556710 1 TAB ORALLY DAILY (DX: EDEMA) 01/27/20 No Stop Date Active potassium chloride ER 20 mEq tablet,extended release(part/cryst) RxNorm: 5267303 2 TABS (40MEQ) ORALLY TWICE DAILY (DX: HYPOKALEMIA) 01/27/20 24 025 Inactive cephalexin 500 mg capsule RxNorm: 378910 Take 1 Capsule(s) Oral QID 12/17/19 24 024 Inactive cephalexin 500 mg capsule RxNorm: 484049 Take 1 Capsule(s) Oral QID 12/17/19 24 Inactive acetaminophen 500 mg tablet RxNorm: 607657 (MAX APAP:4GM/24HR) Take 1 Tablet(s) Oral TID as needed for pain 12/10/19 24 Inactive torsemide 20 mg tablet RxNorm: 011588 Take 1 Tablet(s) Oral QD 10/26/19 24 024 Inactive potassium chloride ER 20 mEq tablet,extended release RxNorm: 19800522 Take 2 Tablet(s) Oral BID 10/26/19 24 Inactive torsemide 20 mg tablet RxNorm: 369288 Take 1 Tablet(s) Oral QD 10/26/19 24 Inactive potassium chloride ER 20 mEq tablet,extended release RxNorm: 19800522 Take 2 Tablet(s) Oral BID 10/26/19 24 Inactive Artificial Tears (PF) 0.1 %-0.3 % drops in a dropperette RxNorm: 581254 Apply 1-2 Drop(s) Both eyes BID as needed 09/28/19 24 Inactive erythromycin 5 mg/gram (0.5 %) eye ointment RxNorm: 358292 Apply 1 Application Both eyes QHS every night at bedtime Instill ~1 cm ribbon into affected eye 09/28/19 24 Inactive Artificial Tears (PF) 0.1 %-0.3 % drops in a dropperette RxNorm: 234407 Apply 1-2 Drop(s) Both eyes BID as needed 09/28/19 24 024 Inactive erythromycin 5 mg/gram (0.5 %) eye ointment RxNorm: 290476 Apply 1 Application Both eyes QHS every night at bedtime Instill ~1 cm ribbon into affected eye 09/28/19 24 024 Inactive acetaminophen 500 mg tablet RxNorm: 666681 (MAX APAP:4GM/24HR) Take 1 Tablet(s) Oral TID as needed for pain 09/24/19 24 024 Inactive carvedilol 25 mg tablet RxNorm: 396822 Take 1 Tablet(s) Oral QD 09/08/19 24 No Stop Date Active pregabalin 100 mg capsule RxNorm: 604675 Take 1 Capsule(s) Oral QAM every morning 09/07/19 24 024 Inactive bisacodyl 10 mg rectal suppository RxNorm: 834047 Insert 1 Suppository Rectal QD as needed 07/13/19 24 No Stop Date Active ketoconazole 2 % shampoo RxNorm: 341819 Apply 1 Application Topical UD as directed 07/13/19 24 No Stop Date Active Ozempic 1 mg/dose (4 mg/3 mL) subcutaneous pen injector RxNorm: 9904154 Inject 1 Milligram(s) Subcutaneous QW once a week 07/13/19 24 No Stop Date Active Guaifenesin AC 10 mg-100 mg/5 mL oral liquid RxNorm: 206772 Take 10 Milliliter(s) Oral Q4H every four hours as needed 07/13/19 24 No Stop Date Active hydrocortisone 2.5 % topical cream RxNorm: 907815 Apply 1 Application Topical BID as needed 07/13/19 24 No Stop Date Active rosuvastatin 40 mg tablet RxNorm: 195198 Take 1 Tablet(s) Oral QPM every evening 07/13/19 24 024 Inactive ezetimibe 10 mg tablet RxNorm: 378560 Take 1 Tablet(s) Oral QD 07/13/19 24 025 Inactive polyethylene glycol 3350 17 gram/dose oral powder RxNorm: 536990 Take 17 Gram(s) Oral BID as needed mix in 4-8ox water 07/13/19 24 025 Inactive aripiprazole 15 mg tablet RxNorm: 962994 Take 1/2 Tablet(s) Oral QD 07/13/19 24 024 Inactive isosorbide mononitrate ER 60 mg tablet,extended release 24 hr RxNorm: 981984 Take 1 Tablet(s) Oral QD 07/13/19 24 024 Inactive ammonium lactate 12 % topical cream RxNorm: 502533 Apply 1 Application Topical BID 07/13/19 24 025 Inactive rosuvastatin 20 mg sprinkle capsule RxNorm: 3913510 Take 1 Capsule(s) Oral QD 07/13/19 24 025 Inactive Vascepa 1 gram capsule RxNorm: 9302047 Take 2 Capsule(s) Oral BID 07/13/19 24 024 Inactive venlafaxine ER 75 mg capsule,extended release 24 hr RxNorm: 465170 Take 3 Capsule(s) Oral QD 07/13/19 24 024 Inactive Basaglar KwikPen U-100 Insulin 100 unit/mL (3 mL) subcutaneous RxNorm: 1032400 Inject 30U SubQ twice daily 07/07/19 24 024 Inactive Please dispense one month supply. Basaglar KwikPen U-100 Insulin 100 unit/mL (3 mL) subcutaneous RxNorm: 2742053 Inject 30U SubQ twice daily 07/07/19 24 024 Inactive Please dispense one month supply. pregabalin 150 mg capsule RxNorm: 884797 Take 1 Capsule(s) Oral QHS every night at bedtime 07/05/19 24 024 Inactive pregabalin 150 mg capsule RxNorm: 332405 Take 1 Capsule(s) Oral QHS every night at bedtime 07/05/19 24 024 Inactive polyethylene glycol 3350 17 gram/dose oral powder RxNorm: 675478 Take 1 Packet Oral QD as needed (1 packet = 17g) mix with 4-8oz of liquid 06/15/19 24 024 Inactive bisacodyl 10 mg rectal suppository RxNorm: 583779 Insert one suppository per rectum once daily as needed for constipation 06/15/19 24 024 Inactive bisacodyl 10 mg rectal suppository RxNorm: 899161 Insert one suppository per rectum once daily as needed for constipation 06/15/19 24 024 Inactive pregabalin 100 mg capsule RxNorm: 439515 Take 1 Capsule(s) Oral QAM every morning 04/27/20 23 024 Inactive Levemir FlexPen 100 unit/mL (3 mL) solution subcutaneous insulin pen RxNorm: 306719 Inject 30 Unit(s) Subcutaneous BID 04/27/20 024 Inactive rosuvastatin 40 mg tablet RxNorm: 264058 Take 1 Tablet(s) Oral QPM every evening 04/16/20 024 Inactive D/C rosuvastatin 20mg venlafaxine ER 75 mg capsule,extended release 24 hr RxNorm: 312872 Take 3 Capsule(s) Oral QD 04/14/20 023 Inactive pregabalin 100 mg capsule RxNorm: 725598 Take 1 Capsule(s) Oral QAM every morning [...] strip clotrimazole 1 % topical cream RxNorm: 884401 Take apply topically to abdominal folds twice daily for 14 days 03/12/20 024 Inactive Ozempic 1 mg/dose (4 mg/3 mL) subcutaneous pen injector RxNorm: 1402930 Inject 1 Milligram(s) Subcutaneous QW once a week 03/11/20 023 Inactive rosuvastatin 20 mg tablet RxNorm: 882340 Take 1 Tablet(s) Oral QD 02/26/20 023 Inactive d/c pravastatin 80mg Ozempic 1 mg/dose (4 mg/3 mL) subcutaneous pen injector RxNorm: 0705230 Inject 1 Milligram(s) Subcutaneous QW once a week 02/20/20 023 Inactive pregabalin 150 mg capsule RxNorm: 296507 Take 1 Capsule(s) Oral HS at bed time 02/19/20 23 023 Inactive pregabalin 100 mg capsule RxNorm: 665379 Take 1 Capsule(s) Oral QAM every morning 02/18/20 023 Inactive venlafaxine ER 75 mg capsule,extended release 24 hr RxNorm: 954683 Take 3 Capsule(s) Oral QD 02/04/20 23 023 Inactive FreeStyle Chema 2 Sensor kit RxNorm: use as directed 02/04/20 23 023 Inactive FreeStyle Chema 2 Sensor kit RxNorm: use as directed 02/04/20 024 Inactive fluconazole 150 mg tablet RxNorm: 410427 Take 1 Tablet(s) Oral on day 3 and on day 6 02/03/20 024 Inactive venlafaxine ER 150 mg capsule,extended release 24 hr RxNorm: 295385 Take 1 Capsule(s) Oral QD 02/03/20 23 023 Inactive chlorthalidone 25 mg tablet RxNorm: 283954 Take 1 Tablet(s) Oral QAM every morning 02/03/20 23 024 Inactive acetaminophen 500 mg tablet RxNorm: 075754 1 TABLET ORALLY 3 TIMES DAILY (MAX APAP:4GM/24HR) 12/15/19 23 023 Inactive potassium chloride ER 20 mEq tablet,extended release RxNorm: 839100 Take 1 Tablet(s) Oral BID 12/09/19 23 024 Inactive d/c 20mEq once daily (sent from hospital) clotrimazole 1 % topical cream RxNorm: 195345 apply 1g topically to top of feet and in between toes BID 12/09/19 23 025 Inactive nystatin 100,000 unit/gram topical powder RxNorm: 907745 APPLY TO AFFECTED AREAS TOPICALLY 2 TIMES DAILY 11/21/19 23 023 Inactive Nystop 100,000 unit/gram topical powder RxNorm: 510881 Apply to abd folds, under breasts and L side of groin Topical BID x 14 days, then BID PRN 11/20/19 23 023 Inactive dx: yeast dermatitis [place] Ultra Strength 4 %-30 %-10 % topical cream RxNorm: 661924 Apply 1 Gram(s) Topical QID PRN to feet and legs for neuropathic pain 11/11/19 23 024 Inactive clotrimazole 1 % topical cream RxNorm: 079500 Apply 1/2 Gram(s) Topical BID Apply to affected areas of groin, periarea, and abdominal topically 2 times daily 11/10/19 025 Inactive hydrocortisone 2.5 % topical cream RxNorm: 982727 Apply 1/2 Gram(s) Topical BID as needed 11/10/19 024 Inactive Levemir FlexPen 100 unit/mL (3 mL) solution subcutaneous insulin pen RxNorm: 314783 Inject 30 Unit(s) Subcutaneous BID 10/07/19 023 Inactive Humulin R U-500 (Concentrated) Insulin 500 unit/mL subcutaneous soln RxNorm: 751822 Inject 100 Unit(s) Subcutaneous TID 10/07/19 024 Inactive Ozempic 0.25 mg or 0.5 mg (2 mg/3 mL) subcutaneous pen injector RxNorm: 0366638 Inject 1/2 Milligram(s) Subcutaneous QW once a week 10/07/19 024 Inactive aripiprazole 15 mg tablet RxNorm: 286916 1/2 TAB (7.5MG) ORALLY DAILY (DX:MAJOR DEPRESSIVE DISORDER) 09/23/19 23 023 Inactive Accu-Chek Guide test strips RxNorm: Use 1 Test Strip QID 09/15/19 23 023 Inactive ok to substitute with any covered alternative test strip Lancets,Thin 28 gauge RxNorm: Use 1 as directed QID 09/15/19 23 023 Inactive torsemide 20 mg tablet RxNorm: 211279 Take 1 Tablet(s) Oral BID 09/09/19 024 Inactive d/c once daily dosing carvedilol 25 mg tablet RxNorm: 221356 Take 1 Tablet(s) Oral QD 08/25/19 024 Inactive pregabalin 150 mg capsule RxNorm: 845018 1 Capsule(s) Oral HS at bed time 08/18/19 023 Inactive pregabalin 100 mg capsule RxNorm: 370570 1 Capsule(s) Oral QAM every morning 08/18/19 023 Inactive carvedilol 25 mg tablet RxNorm: 092031 1 Tablet(s) Oral QD 07/28/19 23 023 Inactive lisinopril 20 mg tablet RxNorm: 937751 Give 1 Tablet(s) Oral QD 07/28/19 23 023 Inactive Lyrica 150 mg capsule RxNorm: 907777 Take 1 Capsule(s) Oral QHS every night at bedtime 07/19/19 23 023 Inactive d/c 100mg dose Diflucan 150 mg tablet RxNorm: 731117 Take 1 Tablet(s) Oral QD repeat on day 3 and 6 07/19/19 23 023 Inactive pregabalin 100 mg capsule RxNorm: 207407 Take 1 Capsule(s) Oral QAM every morning 07/19/19 023 Inactive gatifloxacin 0.5 % eye drops RxNorm: 064675 Instill 1 Drop(s) as directed TID Instill 1 drop in to affected eye(s) starting 1 day prior to surgery and continue until gone (do not exceed 4 weeks). 07/13/19 23 023 Inactive carvedilol 25 mg tablet RxNorm: 433632 2 Tablet(s) Oral BID 07/13/19 23 023 Inactive Humulin R Regular U-100 Insulin 100 unit/mL injection solution RxNorm: 693397 85 Unit(s) Injection TID 07/13/19 23 023 Inactive ketorolac 0.5 % eye drops RxNorm: 035379 Instill 1 Drop(s) as directed QID Instill 1 drop into affected eye(s) 4 times daily starting 1 day prior to surgery and continue until gone (do not exceed 4 weeks). 07/13/19 23 023 Inactive Diflucan 150 mg tablet RxNorm: 111543 Take 1 Tablet(s) Oral QD repeat on day 3 and 6 06/30/19 23 023 Inactive Accu-Chek Guide test strips RxNorm: Use 1 Test Strip QID Use 1 test strip to monitor blood glucose 4 times daily and as needed. Dx:E11.42. 06/23/19 23 023 Inactive ok to substitute with any covered alternative test strip dextromethorphan-gu aifenesin 10 mg-100 mg/5 mL oral liquid RxNorm: 212154 Take 10 Milliliter(s) Oral every 4 hours as needed for cough 06/19/19 023 Inactive dextromethorphan-gu aifenesin 10 mg-100 mg/5 mL oral liquid RxNorm: 604005 Take 10 Milliliter(s) Oral every 4 hours as needed for cough 06/19/19 023 Inactive Lyrica 150 mg capsule RxNorm: 551744 Take 1 Capsule(s) Oral QHS every night at bedtime 06/18/19 023 Inactive d/c 100mg dose aripiprazole 15 mg tablet RxNorm: 268446 1/2 TAB (7.5MG) ORALLY DAILY (DX:MAJOR DEPRESSIVE DISORDER) 06/05/19 023 Inactive pregabalin 100 mg capsule RxNorm: 081410 1 Capsule(s) Oral QAM every morning 06/02/19 023 Inactive Banophen 50 mg capsule RxNorm: 2040624 Take 1 Capsule(s) Oral Q6H every 6 hours as needed 05/19/19 23 No Stop Date Active Novolog Flexpen U-100 Insulin aspart 100 unit/mL (3 mL) subcutaneous RxNorm: 1046176 Inject 10 Unit(s) Subcutaneous QHS every night at bedtime with nighttime snack 04/08/20 022 Inactive Novolog Flexpen U-100 Insulin aspart 100 unit/mL (3 mL) subcutaneous RxNorm: 1848335 Inject 42 Unit(s) Subcutaneous TID in addition to sliding scale 04/08/20 022 Inactive d/c 36u albuterol sulfate HFA 90 mcg/actuation aerosol inhaler RxNorm: 1142625 Take 2 Puff(s) Inhalation Q4H every four hours as needed as needed for SOB, cough, or wheezing 04/07/20 030 Active Banophen 50 mg capsule RxNorm: 5986414 Take 1 Capsule(s) Oral Q6H every 6 hours as needed 04/06/20 023 Inactive diphenhydramine 50 mg tablet RxNorm: 2985502 Take 1 Tablet(s) Oral Q6H every 6 hours as needed 04/06/20 22 022 Inactive diphenhydramine 50 mg tablet RxNorm: 4886523 1 Tablet(s) Oral Q6H every 6 hours as needed 04/06/20 22 022 Inactive Abilify 15 mg tablet RxNorm: 476361 1/2 Tablet(s) Oral QD 03/10/20 22 023 Inactive Shingrix (PF) 50 mcg/0.5 mL intramuscular suspension, kit RxNorm: 6697472 Administer 1/2 Milliliter(s) Intramuscular QD one time shingrix step 2 ( step 1 given 11/04/21) WITH needle - Nursing please administer upon arrival and once administered post a bridge message with date of administration, rn tele, expiration date, and lot# so we can update [facility] 02/18/20 22 022 Inactive dispense with needle Shingrix (PF) 50 mcg/0.5 mL intramuscular suspension, kit RxNorm: 2661343 Administer 1/2 Milliliter(s) Intramuscular QD one time shingrix step 2 ( step 1 given 11/04/21) WITH needle - Nursing please administer upon arrival and once administered post a bridge message with date of administration, rn tele, expiration date, and lot# so we can update [facility] 02/18/20 22 022 Inactive dispense with needle Lyrica 100 mg capsule RxNorm: 854137 Take 1 Capsule(s) Oral QAM every morning 01/08/20 22 022 Inactive d/c 50mg dose acetaminophen 500 mg tablet RxNorm: 953357 Take 1 Tablet(s) Oral TID 01/08/20 22 022 Inactive d/c PRN order Lyrica 150 mg capsule RxNorm: 123180 Take 1 Capsule(s) Oral QHS every night at bedtime 01/08/20 22 023 Inactive d/c 100mg dose polyethylene glycol 3350 17 gram/dose oral powder RxNorm: 625114 Take 17=1 capful Gram(s) Oral QD mix with 4-8oz of liquid 01/08/20 22 025 Inactive take this in addition to BID prn order Abilify 5 mg tablet RxNorm: 965620 Take 1 Tablet(s) Oral QD take 1 tab po QD #30 refill 5 dx: MDD 12/12/19 22 022 Inactive Abilify 5 mg tablet RxNorm: 281627 Take 1 Tablet(s) Oral QD take 1 tab po QD #30 refill 5 dx: MDD 12/12/19 22 022 Inactive Novolog Flexpen U-100 Insulin aspart 100 unit/mL (3 mL) subcutaneous RxNorm: 3270848 Inject 42 Unit(s) Subcutaneous TID in addition to sliding scale 12/10/19 22 022 Inactive d/c 36u chlorthalidone 25 mg tablet RxNorm: 079480 Take 1 Tablet(s) Oral QAM every morning 12/10/19 22 023 Inactive pregabalin 50 mg capsule RxNorm: 248128 Take 1 Capsule(s) Oral QAM every morning 11/12/19 22 022 Inactive tetanus-diphtheria toxoids-Td 2 Lf unit-2 Lf unit/0.5 mL IM suspension RxNorm: 139 Take 0.5 Miscellaneous Intramuscular 11/12/19 22 022 Inactive need tdap - nursing to administer upon arrival pregabalin 50 mg capsule RxNorm: 433217 Take 1 Capsule(s) Oral QAM every morning 10/16/19 22 022 Inactive pregabalin 50 mg capsule RxNorm: 196025 Take 1 Capsule(s) Oral QAM every morning 10/16/19 22 022 Inactive pregabalin 50 mg capsule RxNorm: 434946 1 Capsule(s) Oral QAM every morning 10/15/19 22 022 Inactive Shingrix (PF) 50 mcg/0.5 mL intramuscular suspension, kit RxNorm: 0668536 Administer 1/2 Milliliter(s) Intramuscular one time Nursing please administer upon arrival and once administered post a bridge message with date of administration, rn tele, expiration date, and lot# so we can update [facility]. 10/09/19 22 022 Inactive shingrix step 1 Shingrix (PF) 50 mcg/0.5 mL intramuscular suspension, kit RxNorm: 5864684 Administer 1/2 Milliliter(s) Intramuscular one time Nursing please administer upon arrival and once administered post a bridge message with date of administration, rn tele, expiration date, and lot# so we can [...] aspart 100 unit/mL (3 mL) subcutaneous RxNorm: 1088878 Inject 10 Unit(s) Subcutaneous QHS every night at bedtime with nighttime snack 10/08/19 22 Inactive Shingrix (PF) 50 mcg/0.5 mL intramuscular suspension, kit RxNorm: 6750087 ADMINISTER 2-DOSE SERIES PER CDC GUIDELINES 10/08/19 22 Active Shingrix (PF) 50 mcg/0.5 mL intramuscular suspension, kit RxNorm: 8771246 ADMINISTER 2-DOSE SERIES PER CDC GUIDELINES 10/08/19 22 Inactive Novolog Flexpen U-100 Insulin aspart 100 unit/mL (3 mL) subcutaneous RxNorm: 4933317 Inject 36 Unit(s) Subcutaneous TID in addition to sliding scale 10/08/19 22 Inactive cholecalciferol (vitamin D3) 1,250 mcg (50,000 unit) capsule RxNorm: 349400 Take 1 Capsule(s) Oral QW once a week 10/08/19 22 Inactive Novofine Autocover 30 gauge x 1/3 needle RxNorm: Use 1 Miscellaneous UD as directed Use 1 needle as directed to administer insulin 5 times a day Dx:E11.42. 10/03/19 22 Inactive ok to substitute with any covered alternative pen needle benzoyl peroxide 10 % topical cleanser RxNorm: 046075 Apply 1 Application Topical QD apply to face, wash rinse and dry once daily (may change to QOD if drying) 08/19/19 22 022 Inactive (%covered by insurance) #60ml refill 11 dx: acne benzoyl peroxide 10 % topical cleanser RxNorm: 539167 Apply 1 Application Topical QD apply to face, wash rinse and dry once daily (may change to QOD if drying) 08/19/19 22 022 Inactive (%covered by insurance) #60ml refill 11 dx: acne benzoyl peroxide 10 % topical cleanser RxNorm: 456328 Apply 1 Application Topical QD apply to face, wash rinse and dry once daily (may change to QOD if drying) 08/19/19 22 022 Inactive (%covered by insurance) #60ml refill 11 dx: acne Lyrica 50 mg capsule RxNorm: 435036 Take 1 Capsule(s) Oral QAM every morning Take 1 capsule by mouth once daily 08/19/19 022 Inactive benzoyl peroxide 10 % topical cleanser RxNorm: 920834 Apply 1 Application Topical QD apply to face, wash rinse and dry once daily (may change to QOD if drying) 08/19/19 022 Inactive (%covered by insurance) #60ml refill 11 dx: acne Lyrica 100 mg capsule RxNorm: 026615 Take 1 Capsule(s) Oral QHS every night at bedtime Take 1 capsule by mouth once daily at bedtime 08/19/19 22 022 Inactive Lyrica 100 mg capsule RxNorm: 794372 Take 1 Capsule(s) Oral QHS every night at bedtime Take 1 capsule by mouth once daily at bedtime 08/16/19 22 Inactive Lyrica 50 mg capsule RxNorm: 143304 Take 1 Capsule(s) Oral QAM every morning Take 1 capsule by mouth once daily 08/16/19 22 022 Inactive Levemir FlexTouch U-100 Insulin 100 unit/mL (3 mL) subcutaneous pen RxNorm: 719934 Inject 86 Unit(s) Subcutaneous BID 08/05/19 22 022 Inactive d/c 83units BID Lyrica 100 mg capsule RxNorm: 157304 Take 1 Capsule(s) Oral QHS every night at bedtime Take 1 capsule by mouth once daily at bedtime 07/14/19 22 Inactive Lyrica 50 mg capsule RxNorm: 584651 Take 1 Capsule(s) Oral QAM every morning Take 1 capsule by mouth once daily 07/14/19 22 Inactive Levemir FlexTouch U-100 Insulin 100 unit/mL (3 mL) subcutaneous pen RxNorm: 213598 Inject 83 Unit(s) Subcutaneous BID 07/08/19 22 [...] test strip hydralazine 50 mg tablet RxNorm: 506533 Take 1 Tablet(s) Oral QID 05/05/20 Inactive venlafaxine ER 225 mg tablet,extended release 24 hr RxNorm: 621608 Take 1 Tablet(s) Oral QD 05/05/20 Inactive venlafaxine ER 225 mg tablet,extended release 24 hr RxNorm: 643423 Take 1 Tablet(s) Oral QD 05/05/20 022 Inactive isosorbide mononitrate ER 30 mg tablet,extended release 24 hr RxNorm: 050469 Take 1 Tablet(s) Oral QD 05/05/20 024 Inactive hydralazine 50 mg tablet RxNorm: 459783 Take 1 Tablet(s) Oral QID 05/05/20 Inactive aspirin 81 mg tablet,delayed release RxNorm: 018475 Take 1 Tablet(s) Oral QD 03/31/20 022 Inactive Vitamin D2 1,250 mcg (50,000 unit) capsule RxNorm: 6267831 Take 1 Capsule(s) Oral QW once a week x 12 weeks 03/31/20 Inactive Vitamin D2 1,250 mcg (50,000 unit) capsule RxNorm: 9186251 Take 1 Capsule(s) Oral QW once a week 03/31/20 Inactive Zetia 10 mg tablet RxNorm: 876525 Take 1 Tablet(s) Oral QD 03/31/20 024 Inactive Zetia 10 mg tablet RxNorm: 977228 Take 1 Tablet(s) Oral QD 03/31/20 Inactive hydralazine 25 mg tablet RxNorm: 644166 Take 1 Tablet(s) Oral QID 03/31/20 021 Inactive hydralazine 25 mg tablet RxNorm: 339872 Take 1 Tablet(s) Oral QID 03/31/20 021 Inactive hydralazine 10 mg tablet RxNorm: 813837 Take 1 Tablet(s) Oral QID 03/03/20 021 Inactive cephalexin 500 mg tablet RxNorm: 849998 Take 1 Tablet(s) Oral QID 02/27/20 021 Inactive cephalexin 500 mg tablet RxNorm: 370473 Take 1 Tablet(s) Oral QID 02/27/20 021 Inactive lisinopril 40 mg tablet RxNorm: 997390 Take 1 Tablet(s) Oral QD 02/11/20 023 Inactive Eliquis 5 mg tablet RxNorm: 8466863 Take 1 Tablet(s) Oral BID 01/05/20 21 025 Inactive Eliquis 5 mg tablet RxNorm: 8067625 Take 2 Tablet(s) Oral QD 01/01/20 21 021 Inactive Lyrica 50 mg capsule RxNorm: 916820 Take 1 Capsule(s) Oral QAM every morning 12/24/19 021 Inactive Lyrica 100 mg capsule RxNorm: 775681 Take 1 Capsule(s) Oral QHS every night at bedtime 12/24/19 021 Inactive clotrimazole 1 % topical cream RxNorm: 724877 Apply to right foot and toes Topical BID 12/04/19 21 023 Inactive metoprolol succinate ER 200 mg tablet,extended release 24 hr RxNorm: 796839 Take 1 Tablet(s) Oral QD 12/04/19 023 Inactive ciprofloxacin 500 mg tablet RxNorm: 429093 Take 1 Tablet(s) Oral QD 11/30/19 021 Inactive DX ofloxacin otic drops Accu-Chek Guide test strips RxNorm: USE 1 TO CHECK GLUCOSE 4 TIMES DAILY AND NEEDED 11/15/19 21 023 Inactive Blood Glucose Test strips RxNorm: Use 1 Test Strip QID at PRN 11/05/19 21 023 Inactive E11.42 lisinopril 30 mg tablet RxNorm: 871636 Take 1 Tablet(s) Oral QD 10/30/19 21 021 Inactive lisinopril 20 mg tablet RxNorm: 837277 Take 1 Tablet(s) Oral QD 10/23/19 21 021 Inactive lisinopril 20 mg tablet RxNorm: 025241 Take 1 Tablet(s) Oral QD 10/23/19 21 021 Inactive lisinopril 10 mg tablet RxNorm: 345998 Take 1 Tablet(s) Oral QD 10/02/19 21 021 Inactive icosapent ethyl 1 gram capsule RxNorm: 9117626 Take 2 Capsule(s) (2 gm) Oral BID with meals 09/12/19 21 024 Inactive Okay to dispense one 2gm tab if you have that available. icosapent ethyl 1 gram capsule RxNorm: 5013553 Take 2 Capsule(s) Oral BID 09/12/19 21 021 Inactive Okay to dispense one 2gm tab if you have that available. amlodipine 10 mg tablet RxNorm: 229092 Take 1 Tablet(s) Oral QD 09/04/19 21 021 Inactive aspirin 81 mg tablet,delayed release RxNorm: 606377 Take 1 Tablet(s) Oral QD 09/04/19 21 021 Inactive Levemir FlexTouch U-100 Insulin 100 unit/mL (3 mL) subcutaneous pen RxNorm: 209086 Inject 150 Unit(s) Subcutaneous BID 09/04/19 21 022 Inactive venlafaxine ER 150 mg tablet,extended release 24 hr RxNorm: 655295 Take 1 Tablet(s) Oral QD 09/04/19 21 021 Inactive clotrimazole-betame thasone 1 %-0.05 % topical cream RxNorm: 808542 Apply to rash on red area on left abdomen/chest Topical BID 08/10/19 21 021 Inactive amlodipine 5 mg tablet RxNorm: 819545 Take 1 Tablet(s) Oral QD 07/31/19 21 021 Inactive cephalexin 500 mg tablet RxNorm: 460010 Take 1 Tablet(s) Oral BID BID - Twice Daily 07/31/19 21 021 Inactive Start 08/01/20 pantoprazole 40 mg tablet,delayed release RxNorm: 403101 Take 1 Tablet(s) Oral QAM every morning 07/08/19 025 Inactive clopidogrel 75 mg tablet RxNorm: 025288 Take 1 Tablet(s) Oral QD 07/08/19 021 Inactive Blood Glucose Test strips RxNorm: Use 1 Test Strip QID at PRN 07/08/19 21 021 Inactive E11.42 senna 8.6 mg tablet RxNorm: 839191 Take 1 Tablet(s) Oral QD 07/08/19 025 Inactive Novolog Flexpen U-100 Insulin aspart 100 unit/mL (3 mL) subcutaneous RxNorm: 6766692 Administer per sliding scale Milliliter(s) Subcutaneous TID 151-200: 10 u; 201-250: 20 u; 251-300: 30 u; 301-350: 40 u; 351-400: 50 u. 07/08/19 022 Inactive lisinopril 5 mg tablet RxNorm: 379840 Take 1 Tablet(s) Oral QD 07/08/19 021 Inactive Novolog Flexpen U-100 Insulin aspart 100 unit/mL (3 mL) subcutaneous RxNorm: 6547455 Inject 85 Unit(s) Subcutaneous TID 07/08/19 022 Inactive pravastatin 80 mg tablet RxNorm: 362561 Take 1 Tablet(s) Oral QHS every night at bedtime 07/08/19 21 023 Inactive clotrimazole 1 % topical cream RxNorm: 146309 Apply to bilateral groin areas Topical BID 07/08/19 21 022 Inactive metoprolol succinate ER 200 mg tablet,extended release 24 hr RxNorm: 798927 Take 1 Tablet(s) Oral QD 07/08/19 021 Inactive Vitamin D3 25 mcg (1,000 unit) tablet RxNorm: 694379 Take 1 Tablet(s) Oral QD 07/08/19 021 Inactive isosorbide dinitrate 30 mg tablet RxNorm: 218941 Take 1 Tablet(s) Oral QD 07/08/19 21 021 Inactive carbamazepine 200 mg tablet RxNorm: 978033 Take 1 Tablet(s) Oral BID 07/08/19 21 025 Inactive Levemir FlexTouch U-100 Insulin 100 unit/mL (3 mL) subcutaneous pen RxNorm: 012463 Inject 140 Unit(s) Subcutaneous BID 07/08/19 21 021 Inactive torsemide 20 mg tablet RxNorm: 034124 Take 1 Tablet(s) Oral QD 07/08/19 21 023 Inactive venlafaxine 75 mg tablet RxNorm: 160981 Take 1 Tablet(s) Oral QD 07/08/19 021 Inactive acetaminophen 500 mg tablet RxNorm: 242941 Take 1 Tablet(s) Oral TID as needed for headache 06/18/19 21 021 Inactive acetaminophen 500 mg tablet RxNorm: 519652 Take 1 Tablet(s) Oral TID as needed for headache 06/18/19 021 Inactive Lyrica 100 mg capsule RxNorm: 336975 Take 1 Capsule(s) Oral QHS every night at bedtime 06/11/19 21 021 Inactive Lyrica 50 mg capsule RxNorm: 346673 Take 1 Capsule(s) Oral QAM every morning 06/10/19 21 021 Inactive hydrocortisone 2.5 % topical cream RxNorm: 443229 Apply to bilateral groin creases Topical BID 05/15/20 20 021 Inactive clotrimazole 1 % topical cream RxNorm: 192819 Apply to bilateral groin areas Topical BID 05/15/20 20 021 Inactive Lyrica 50 mg capsule RxNorm: 402441 Take 1 Capsule(s) Oral QAM every morning 05/14/20 20 020 Inactive Lyrica 100 mg capsule RxNorm: 735376 Take 1 Capsule(s) Oral QHS every night [...] Inactive Nystop 100,000 unit/gram topical powder RxNorm: 252984 Apply to abd folds, under breasts and L side of groin Topical BID x 14 days, then BID PRN 04/08/20 20 Inactive dx: yeast dermatitis Lyrica 100 mg capsule RxNorm: 114686 Take 1 Capsule(s) Oral QHS every night at bedtime 03/13/20 20 Inactive Lyrica 50 mg capsule RxNorm: 505106 Take 1 Capsule(s) Oral QAM every morning 03/13/20 20 Inactive ketoconazole 2 % shampoo RxNorm: 237109 Apply Topical two times a week with showers 03/11/20 20 Inactive cholecalciferol (vitamin D3) 50 mcg (2,000 unit) tablet RxNorm: 425792 Take 1 Tablet(s) Oral QD 03/11/20 20 021 Inactive Zetia 10 mg tablet RxNorm: 560198 Take 1 Tablet(s) Oral QD 03/07/20 20 021 Inactive Zetia 10 mg tablet RxNorm: 492559 Take 1 Tablet(s) Oral QD 03/07/20 20 Inactive Lyrica 50 mg capsule RxNorm: 493697 Take 1 Capsule(s) Oral QAM every morning 02/15/20 20 Inactive Lyrica 100 mg capsule RxNorm: 320082 Take 1 Capsule(s) Oral QHS every night at bedtime 02/15/20 20 Inactive Lyrica 100 mg capsule RxNorm: 187319 Take 1 Capsule(s) Oral QHS every night at bedtime 02/15/20 20 Inactive Lyrica 50 mg capsule RxNorm: 763425 Take 1 Capsule(s) Oral QAM every morning 02/15/20 20 020 Inactive venlafaxine ER 75 mg capsule,extended release 24 hr RxNorm: 737615 Take 3 Capsule(s) Oral QD 06/12/19 023 Inactive polyethylene glycol 3350 17 gram/dose oral powder RxNorm: 673560 Take 17=1 capful Gram(s) Oral BID as needed mix with 4-8oz of liquid 06/12/19 22 024 Inactive icosapent ethyl 1 gram capsule RxNorm: 6003493 Take 2 Capsule(s) (2 gm) Oral BID with meals 10/07/19 23 023 Inactive Okay to dispense one 2gm tab if you have that available. Levemir FlexTouch U-100 Insulin 100 unit/mL (3 mL) subcutaneous pen RxNorm: 043847 Inject 80 Unit(s) Subcutaneous BID 07/14/19 23 023 Inactive metoprolol succinate ER 200 mg tablet,extended release 24 hr RxNorm: 671462 Take 1 Tablet(s) Oral QD 08/12/19 23 025 Inactive loperamide 2 mg capsule RxNorm: 903436 Take 1 Capsule(s) Oral QID as needed 09/06/19 25 025 Inactive hydralazine 50 mg tablet RxNorm: 319546 Take 1 Tablet(s) Oral QID 08/12/19 23 025 Inactive Soft Touch Lancets RxNorm: miscellaneous 03/04/20 24 025 Inactive Novolog Flexpen U-100 Insulin aspart 100 unit/mL (3 mL) subcutaneous RxNorm: 4920920 Insert 30 Unit(s) Subcutaneous TID with meals [...] 1: 125/67 Code: 8480-6 BMI: 69.2 Code: 19409-9 Heart Rate 1: 79 bpm Code: 8867-4 [...] Encounter Performer Location Location Address Codes Date (16242) Home Visit - Est Pt, moderate Diagnosis: Body mass index [BMI] 60.0-69.9, adult[ICD10: Z68.44] Diagnosis: Hypertensive heart disease without heart failure[ICD10: I11.9] Diagnosis: Hypokalemia[ICD10: E87.6] Diagnosis: Type 2 diabetes mellitus with diabetic polyneuropathy, with long-term current use of insulin[ICD10: E11.42] Diagnosis: History of recent hospitalization[SNO MED: [id number]] Diagnosis: Mixed incontinence[SNOMED : 82667122] Diagnosis: TASHI (obstructive sleep apnea)[SNOMED: 81330902] Harrison Munson [facility] [address] [address] [place] [address] CPT-4: 67811 12/21/2024 Plan of Care Planned Activity Notes Codes Status Date Patient Education: Patient Medication Summary Completed 12/21/2024 Patient Education: Influenza Complet ed 12/21/2024 Referral: [facility] Radiology/Imaging WPtel: [address] [place], [place] [id number] Referral No Records Received 10/20/2024 Appointment: Brian Munson WPtel: [address] [place], [place] [phone] [place] F/U 08/08/2024 Appointment: Brian Munson WPtel: [address] [place], [place] [phone] [place] F/U 07/11/2024 Referral: [facility]/Endocrinology WPtel: [address] [place] Referral No Records Received 07/10/2024 Appointment: Brian Munson WPtel: [address] [place], [place] [phone] AWV 02/08/2024 Appointment: Brian Munson WPtel: [address] [place], [place] [phone] [place] F/U 01/11/2024 Appointment: Sandra Clark WPtel: [address] [address] [facility] [address] [id number] Telehealth Psych Follow Up 12/09 Appointment: Rosalina Shirley WPtel: [address] [id number] [place] [facility] 10/26/2022 Referral: [facility] WPtel: [address] , [address] [id number] [place] Referral Records Received 09/21/2022 Appointment: Rosalina Shirley WPtel: [address] [facility] 300 [id number] [place] F/U 08/11/2022 Appointment: Rosalina Shirley WPtel: [address] [facility] 300 [id number] [place] F/U 07/14/2022 Appointment: Rosalina Shirley WPtel: [address] [facility] 300 [id number] [place] F/U 02/10/2022 Referral: [facility] WPtel: [address] [facility] [address] [id number] [place] Referral Completed 05/28/2021 Referral: General Cardiology Referral Complet ed 01/03/2021 Referral: General Psychologist Referral Close d Referral: General Psychiatrist Referral Patient/Family Scheduling Appointment Referral: Shyla Avina [facility] WPtel: [facility] [address] [place] Referral Facility Scheduling Appointment Referral: [...] Sister Jyotsna involved in his care cell# [phone] Guardian: Giulia middleton met in person 09/01/21), [...] order K recheck 6..2024: Potassium recheck 4.0. 8: BMP K 4.0, Na 138, Creatinine 1.35H, eGFR 58L, BUN 24.9H. Ca 9.0. BG 363H. A1c 7.9H. Colon & Rectal Surgery visit scheduled for 2 with Matilde Pérez PA-C. Endocrinology appointment 05.26.2024 [...] Updated weight obtained from hospital paperwork = 403lbs. Leonid does not follow healthy dietary choices or physical activity which impacts his overall health and co morbidities. Mixed incontinence ordering DME - chux today Type 2 diabetes mellitus with diabetic polyneuropathy, with long-term current use of insulin Chronic Endocrinology manages insulin orders now PCP follows up monthly on DM management due to high risk medication use and the need for continued education and encouragement of management. Hospital ID provider changed DM management - nursing notified endocrinology. Endocrine FU 12.28.2024 PCP will order A1c for follow up today as he missed NOVEMBER visit due to hosptialization Continue current DM medication regimen. TASHI (obstructive sleep apnea) Leonid reports last sleep study 10 years ago Wasn't wearing CPAP although since hospitalization has been Needs re evaluation at sleep clinic - will place referral. History of recent hospitalization 12.11.2024-8 SOB/CP No evidence of NE Med change at DC - insulin management FU recommended - BMP lab work Will order labs today Hypertensive heart disease without heart failure Chronic Hospitalzation for shortness of breath and chest pain recently No changes to HTN management Nitro did not relieve chest pain SOB/CP likely multifactorial with weight, history of CAD, and pulmonary status. On multiple antihypertensives Will FU on BMP orders today. Hypokalemia Chronic Supplementation in place 4.0 in OCTOBER Missed NOVEMBER visit due to hosptialization Will order FU BMP today . 12/21/2024
--- OUTSIDE RECORDS SUMMARY | 2025-01-30 22:13 | XMS_ITS | CCD ---
Author Name Cecilio Durham Address [address] [place] [address] Phone Organization [facility] Phone Care Team Providers Care Insurance Underwriting Assistant Name Role Phone Harrison Durham Primary Care Provider Leona vailable Unavailable Chronic Care Management Unavaila ble Summary Purpose DataExchange Insurance Providers Payer name Policy type / Coverage type Covered constitution party ID Effective Begin Date Effective End Date [place] Part B [id number] Unknown Unknown [place] [id number] Unknown Unknown Family history Sister Brittany Suggs [...] on file 07/11/[address]: 449529890 Never smoker 01/16 Sexually Active? Unknown No [...] Unknown Usp 09/03/[address]: 074013774 No Alcohol Consum ption 09/02/2020 Allergies, Adverse Reactions, Alerts Substance Reaction Codes Entered Date Inactivated Date Status * NO KNOWN FOOD ALLERGIES Unknown 07/13/2023 No Inactive Date Active LISINOPRIL RxNorm: 39670 02/12/2020 No Inactive Da te Active Metformin HCl Unknown 02/12/2020 No Inactive Cristiano e Active * NO KNOWN ENVIRONMENTAL ALLERGIES Unknown 07/13/2023 No Inactive Date Active Problems Condition Codes Effective Dates Condition St atus Body mass index [BMI] 60.0-69.9, adult ICD-10: Z68.44 ICD-9: V85.44 12/21/2024 Active History of recent hospitalization SNOMED CT: 583139784 ICD-10: Z92.89 ICD-9: V13.9 12/21/2024 Active Hypertensive heart disease without heart failure ICD-10: I11.9 ICD-9: 402.90 12/21/2024 Active Hypokalemia ICD-10: E87.6 ICD-9: 276.8 12/21/2024 Active Mixed incontinence SNOMED CT: 34207885 ICD-10: N39.46 ICD-9: 788.33 12/21/2024 Active TASHI (obstructive sleep apnea) SNOMED CT: 40472021 ICD-10: G47.33 ICD-9: 327.23 12/21/2024 Active 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 SNOMED CT: 450530298765 ICD-10: E11.22 ICD-9: 250.40 10/10/2024 Active Pressure [...] 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 Other buttermaker continuous churn (current) drug therapy ICD-10: Z79.899 ICD-9: V58.69 [...] 701.9 09/07/2023 Resolved Coronary artery disease involving [place] coronary artery of [place] heart, angina presence unspecified ICD-10: [...] [facility] (current) use of insulin ICD-10: Z79.4 02/10/2022 [...] Instructions Culturelle 10 billion cell capsule RxNorm: 907446 Take 1 Capsule(s) Oral QD 11/08/19 25 026 Active Culturelle 10 billion cell capsule RxNorm: 559656 Take 1 Capsule(s) Oral QD 11/08/19 25 025 Inactive hydrocodone 5 mg-acetaminophen 325 mg tablet RxNorm: 237156 Take 1 Tablet(s) Oral Q4H every four hours as needed for pain PRN for severe acute dental pain 10/21/19 25 025 Inactive penicillin V potassium 500 mg tablet RxNorm: 497912 Take 1 Tablet(s) Oral QID Take until dental appointment per ER recommendation 10/21/19 25 025 Inactive hydrocodone 5 mg-acetaminophen 325 mg tablet RxNorm: 877236 Take 1 Tablet(s) Oral Q4H every four hours as needed for pain PRN for severe acute dental pain 10/21/19 25 025 Inactive penicillin V potassium 500 mg tablet RxNorm: 097282 Take 1 Tablet(s) Oral QID Take until dental appointment per ER recommendation 10/21/19 25 025 Inactive potassium chloride ER 20 mEq tablet,extended release RxNorm: 069541 Take 2 Tablet(s) Oral TID (dx: hypokalemia) 09/14/19 25 026 Active potassium chloride ER 20 mEq tablet,extended release RxNorm: 060739 Take 2 Tablet(s) Oral TID (dx: hypokalemia) 09/14/19 25 025 Inactive loperamide 2 mg tablet RxNorm: 653518 Take 2 Tablet(s) Oral UD as directed [...] Date Active senna 8.6 mg tablet RxNorm: 972253 Take 1 Tablet(s) Oral QD as needed and 1 tab BID prn 09/06/19 No Stop Date Active cyclobenzaprine 10 mg tablet RxNorm: 994431 Take 1 Tablet(s) Oral QHS every night at bedtime as needed 09/06/19 No Stop Date Active loperamide 2 mg tablet RxNorm: 493902 Take 2 Tablet(s) Oral UD as directed as needed 2 tabs after first loose stool then 1 tab after each subsequent stool PRN Do not exceed 4 doses in 24 hours. Do not administer until after 3 loose stools. 09/06/19 026 Active pioglitazone 15 mg tablet RxNorm: 184587 Take 1 Tablet(s) Oral QD 09/06/19 No Stop Date Active loperamide 2 mg tablet RxNorm: 934590 Take 2 Tablet(s) Oral UD as directed as needed 2 tabs after first loose stool then 1 tab after each subsequent stool PRN Do not exceed 4 doses in 24 hours. Do not administer until after 3 loose stools. 09/06/19 025 Inactive pregabalin 100 mg capsule RxNorm: 944333 1 CAPSULE BY MOUTH EVERY MORNING (DX: NEUROPATHY) 08/23/19 Active FACILITY IS REQUESTING REFILL. PRIOR RX HAS BEEN EXHAUSTED. THANK YOU. pregabalin 150 mg capsule RxNorm: 829051 1 CAPSULE BY MOUTH AT BEDTIME (DX: NEUROPATHY) 08/21/19 25 025 Inactive FACILITY IS REQUESTING A REFILL OF THIS MEDICATION, THANK YOU! senna 8.6 mg tablet RxNorm: 476881 Take 1 Tablet(s) Oral QD as needed for constipation on day 2 of no bowel movement 08/09/19 25 025 Inactive Miralax 17 gram/dose oral powder RxNorm: 907030 Administer 17 Gram(s) Oral QD as needed for constipation on day 3 of no bowel movement 08/09/19 25 025 Inactive senna 8.6 mg tablet RxNorm: 946192 Take 1 Tablet(s) Oral QD as needed for constipation on day 2 of no bowel movement 08/09/19 25 025 Inactive Miralax 17 gram/dose oral powder RxNorm: 798111 Administer 17 Gram(s) Oral QD as needed for constipation on day 3 of no bowel movement 08/09/19 25 025 Inactive pregabalin 100 mg capsule RxNorm: 460416 Take 1 Capsule(s) Oral QAM every morning [...] (Concentrated) Insulin 500 unit/mL subcutaneous soln RxNorm: 071162 Inject 100 Unit(s) Subcutaneous AC before meals Three times daily before meals. 07/24/19 25 025 Inactive ammonium lactate 12 % topical cream RxNorm: 517841 Apply 1 Application Topical BID 07/20/19 25 No Stop Date Active ezetimibe 10 mg tablet RxNorm: 275172 Take 1 Tablet(s) Oral QD 07/18/19 25 No Stop Date Active senna 8.6 mg tablet RxNorm: 481075 Take 1 Tablet(s) Oral QD 07/18/19 25 025 Inactive metoprolol succinate ER 200 mg tablet,extended release 24 hr RxNorm: 302498 Take 1 Tablet(s) Oral QD 06/19/19 25 No Stop Date Active pantoprazole 40 mg tablet,delayed release RxNorm: 690572 Take 1 Tablet(s) Oral QAM every morning 06/19/19 25 No Stop Date Active hydralazine 50 mg tablet RxNorm: 514781 Take 1 Tablet(s) Oral QID 06/19/19 25 No Stop Date Active carbamazepine 200 mg tablet RxNorm: 429163 Take 1 Tablet(s) Oral BID 06/19/19 25 No Stop Date Active amlodipine 10 mg tablet RxNorm: 702810 Take 1 Tablet(s) Oral QD 06/19/19 25 No Stop Date Active Eliquis 5 mg tablet RxNorm: 1429918 Take 1 Tablet(s) Oral BID 06/19/19 25 No Stop Date Active pen needle, diabetic 30 gauge x 3/16 RxNorm: Use 1 6 times per day w/insulin 06/14/19 25 026 Active pen needle, diabetic 30 gauge x 3/16 RxNorm: Use 1 needle 6 times per day w/insulin 06/14/19 25 025 Inactive nystatin 100,000 unit/gram topical powder RxNorm: 482968 Apply 1 Application Topical BID as needed abdominal/breast/ groin folds 05/24/19 25 026 Active pregabalin 100 mg capsule RxNorm: 332996 Take 1 Capsule(s) Oral QAM every morning 05/22/19 025 Inactive nystatin 100,000 unit/gram topical powder RxNorm: 259235 Apply 1 Application Topical BID as needed abdominal/breast/ groin folds 04/11/20 24 024 Inactive chlorthalidone 25 mg tablet RxNorm: 905560 Take 1 Tablet(s) Oral QAM every morning 04/06/20 No Stop Date Active pregabalin 150 mg capsule RxNorm: 698071 Take 1 Capsule(s) Oral QHS every night at bedtime 03/31/20 024 Inactive Vascepa 1 gram capsule RxNorm: 3923926 Take 2 Capsule(s) Oral BID 03/30/20 24 025 Active rosuvastatin 40 mg tablet RxNorm: 259481 1 TAB ORALLY EVERY EVENING (DX:CORONARY ARTERY DISEASE) 03/28/20 No Stop Date Active venlafaxine ER 75 mg capsule,extended release 24 hr RxNorm: 734227 3 CAPS (225MG) ORALLY DAILY (DX: MOOD DISORDER) 03/28/20 No Stop Date Active pregabalin 100 mg capsule RxNorm: 394316 Take 1 Capsule(s) Oral QAM every morning 03/20/20 024 Inactive cholecalciferol (vitamin D3) 1,250 mcg (50,000 unit) capsule RxNorm: 640041 Take 1 Capsule(s) Oral QW once a [...] Insulin 100 unit/mL (3 mL) subcutaneous RxNorm: 3369864 Inject 40 Unit(s) Subcutaneous BID 03/07/20 025 Inactive Please dispense one month supply. Humulin R U-500 (Concentrated) Insulin 500 unit/mL subcutaneous soln RxNorm: 416274 Inject 100 Unit(s) Subcutaneous AC before meals [...] PRN) to be use with new Accu [place] meter 03/04/20 024 Inactive ok to substitute with any covered alternative test strip FreeStyle Chema 2 Sensor kit RxNorm: Use UD as directed 03/02/20 Inactive Pen Needle 30 gauge x 09/29 RxNorm: Pen(s) Use 1 needle as directed TID 03/02/20 024 Inactive nystatin 100,000 unit/gram topical powder RxNorm: 599152 Apply 1 Application Topical BID as needed [...] (Concentrated) Insulin 500 unit/mL subcutaneous soln RxNorm: 459380 Inject 100 Unit(s) Subcutaneous TID 02/17/20 24 024 Inactive Humulin R U-500 (Concentrated) Insulin 500 unit/mL subcutaneous soln RxNorm: 516267 Inject 100 Unit(s) Subcutaneous TID 02/10/20 24 024 Inactive Basaglar KwikPen U-100 Insulin 100 unit/mL (3 mL) subcutaneous RxNorm: 5934404 Inject 30 Unit(s) Subcutaneous BID 02/10/20 24 024 Inactive Please dispense one month supply. pregabalin 100 mg capsule RxNorm: 657498 Take 1 Capsule(s) Oral QAM every morning 02/07/20 24 024 Inactive isosorbide mononitrate ER 60 mg tablet,extended release 24 hr RxNorm: 928030 Take 1 Tablet(s) Oral QD 02/01/20 24 025 Inactive aripiprazole 15 mg tablet RxNorm: 171356 Take 1/2 Tablet(s) Oral QD 02/01/20 24 025 Inactive torsemide 20 mg tablet RxNorm: 564702 1 TAB ORALLY DAILY (DX: EDEMA) 01/27/20 No Stop Date Active potassium chloride ER 20 mEq tablet,extended release(part/cryst) RxNorm: 6569958 2 TABS (40MEQ) ORALLY TWICE DAILY (DX: HYPOKALEMIA) 01/27/20 24 025 Inactive cephalexin 500 mg capsule RxNorm: 325411 Take 1 Capsule(s) Oral QID 12/17/19 24 024 Inactive cephalexin 500 mg capsule RxNorm: 017257 Take 1 Capsule(s) Oral QID 12/17/19 24 Inactive acetaminophen 500 mg tablet RxNorm: 460648 (MAX APAP:4GM/24HR) Take 1 Tablet(s) Oral TID as needed for pain 12/10/19 24 Inactive torsemide 20 mg tablet RxNorm: 024899 Take 1 Tablet(s) Oral QD 10/26/19 24 024 Inactive potassium chloride ER 20 mEq tablet,extended release RxNorm: 19800522 Take 2 Tablet(s) Oral BID 10/26/19 24 Inactive torsemide 20 mg tablet RxNorm: 394058 Take 1 Tablet(s) Oral QD 10/26/19 24 Inactive potassium chloride ER 20 mEq tablet,extended release RxNorm: 19800522 Take 2 Tablet(s) Oral BID 10/26/19 24 Inactive Artificial Tears (PF) 0.1 %-0.3 % drops in a dropperette RxNorm: 248076 Apply 1-2 Drop(s) Both eyes BID as needed 09/28/19 24 Inactive erythromycin 5 mg/gram (0.5 %) eye ointment RxNorm: 492909 Apply 1 Application Both eyes QHS every night at bedtime Instill ~1 cm ribbon into affected eye 09/28/19 24 Inactive Artificial Tears (PF) 0.1 %-0.3 % drops in a dropperette RxNorm: 460137 Apply 1-2 Drop(s) Both eyes BID as needed 09/28/19 24 024 Inactive erythromycin 5 mg/gram (0.5 %) eye ointment RxNorm: 351259 Apply 1 Application Both eyes QHS every night at bedtime Instill ~1 cm ribbon into affected eye 09/28/19 24 024 Inactive acetaminophen 500 mg tablet RxNorm: 261942 (MAX APAP:4GM/24HR) Take 1 Tablet(s) Oral TID as needed for pain 09/24/19 24 024 Inactive carvedilol 25 mg tablet RxNorm: 487173 Take 1 Tablet(s) Oral QD 09/08/19 24 No Stop Date Active pregabalin 100 mg capsule RxNorm: 128711 Take 1 Capsule(s) Oral QAM every morning 09/07/19 24 024 Inactive bisacodyl 10 mg rectal suppository RxNorm: 907629 Insert 1 Suppository Rectal QD as needed 07/13/19 24 No Stop Date Active ketoconazole 2 % shampoo RxNorm: 618826 Apply 1 Application Topical UD as directed 07/13/19 24 No Stop Date Active Ozempic 1 mg/dose (4 mg/3 mL) subcutaneous pen injector RxNorm: 5261471 Inject 1 Milligram(s) Subcutaneous QW once a week 07/13/19 24 No Stop Date Active Guaifenesin AC 10 mg-100 mg/5 mL oral liquid RxNorm: 928382 Take 10 Milliliter(s) Oral Q4H every four hours as needed 07/13/19 24 No Stop Date Active hydrocortisone 2.5 % topical cream RxNorm: 417606 Apply 1 Application Topical BID as needed 07/13/19 24 No Stop Date Active rosuvastatin 40 mg tablet RxNorm: 200384 Take 1 Tablet(s) Oral QPM every evening 07/13/19 24 024 Inactive ezetimibe 10 mg tablet RxNorm: 103484 Take 1 Tablet(s) Oral QD 07/13/19 24 025 Inactive polyethylene glycol 3350 17 gram/dose oral powder RxNorm: 481949 Take 17 Gram(s) Oral BID as needed mix in 4-8ox water 07/13/19 24 025 Inactive aripiprazole 15 mg tablet RxNorm: 674886 Take 1/2 Tablet(s) Oral QD 07/13/19 24 024 Inactive isosorbide mononitrate ER 60 mg tablet,extended release 24 hr RxNorm: 200389 Take 1 Tablet(s) Oral QD 07/13/19 24 024 Inactive ammonium lactate 12 % topical cream RxNorm: 182371 Apply 1 Application Topical BID 07/13/19 24 025 Inactive rosuvastatin 20 mg sprinkle capsule RxNorm: 6613744 Take 1 Capsule(s) Oral QD 07/13/19 24 025 Inactive Vascepa 1 gram capsule RxNorm: 9045716 Take 2 Capsule(s) Oral BID 07/13/19 24 024 Inactive venlafaxine ER 75 mg capsule,extended release 24 hr RxNorm: 926973 Take 3 Capsule(s) Oral QD 07/13/19 24 024 Inactive Basaglar KwikPen U-100 Insulin 100 unit/mL (3 mL) subcutaneous RxNorm: 4269963 Inject 30U SubQ twice daily 07/07/19 24 024 Inactive Please dispense one month supply. Basaglar KwikPen U-100 Insulin 100 unit/mL (3 mL) subcutaneous RxNorm: 4975583 Inject 30U SubQ twice daily 07/07/19 24 024 Inactive Please dispense one month supply. pregabalin 150 mg capsule RxNorm: 506341 Take 1 Capsule(s) Oral QHS every night at bedtime 07/05/19 24 024 Inactive pregabalin 150 mg capsule RxNorm: 602271 Take 1 Capsule(s) Oral QHS every night at bedtime 07/05/19 24 024 Inactive polyethylene glycol 3350 17 gram/dose oral powder RxNorm: 162465 Take 1 Packet Oral QD as needed (1 packet = 17g) mix with 4-8oz of liquid 06/15/19 24 024 Inactive bisacodyl 10 mg rectal suppository RxNorm: 596000 Insert one suppository per rectum once daily as needed for constipation 06/15/19 24 024 Inactive bisacodyl 10 mg rectal suppository RxNorm: 831077 Insert one suppository per rectum once daily as needed for constipation 06/15/19 24 024 Inactive pregabalin 100 mg capsule RxNorm: 090839 Take 1 Capsule(s) Oral QAM every morning 04/27/20 23 024 Inactive Levemir FlexPen 100 unit/mL (3 mL) solution subcutaneous insulin pen RxNorm: 687730 Inject 30 Unit(s) Subcutaneous BID 04/27/20 024 Inactive rosuvastatin 40 mg tablet RxNorm: 279730 Take 1 Tablet(s) Oral QPM every evening 04/16/20 024 Inactive D/C rosuvastatin 20mg venlafaxine ER 75 mg capsule,extended release 24 hr RxNorm: 635852 Take 3 Capsule(s) Oral QD 04/14/20 023 Inactive pregabalin 100 mg capsule RxNorm: 908537 Take 1 Capsule(s) Oral QAM every morning [...] strip clotrimazole 1 % topical cream RxNorm: 748755 Take apply topically to abdominal folds twice daily for 14 days 03/12/20 024 Inactive Ozempic 1 mg/dose (4 mg/3 mL) subcutaneous pen injector RxNorm: 5456429 Inject 1 Milligram(s) Subcutaneous QW once a week 03/11/20 023 Inactive rosuvastatin 20 mg tablet RxNorm: 932257 Take 1 Tablet(s) Oral QD 02/26/20 023 Inactive d/c pravastatin 80mg Ozempic 1 mg/dose (4 mg/3 mL) subcutaneous pen injector RxNorm: 7965398 Inject 1 Milligram(s) Subcutaneous QW once a week 02/20/20 023 Inactive pregabalin 150 mg capsule RxNorm: 609432 Take 1 Capsule(s) Oral HS at bed time 02/19/20 23 023 Inactive pregabalin 100 mg capsule RxNorm: 835663 Take 1 Capsule(s) Oral QAM every morning 02/18/20 023 Inactive venlafaxine ER 75 mg capsule,extended release 24 hr RxNorm: 519335 Take 3 Capsule(s) Oral QD 02/04/20 23 023 Inactive FreeStyle Chema 2 Sensor kit RxNorm: use as directed 02/04/20 23 023 Inactive FreeStyle Chema 2 Sensor kit RxNorm: use as directed 02/04/20 024 Inactive fluconazole 150 mg tablet RxNorm: 263704 Take 1 Tablet(s) Oral on day 3 and on day 6 02/03/20 024 Inactive venlafaxine ER 150 mg capsule,extended release 24 hr RxNorm: 038521 Take 1 Capsule(s) Oral QD 02/03/20 23 023 Inactive chlorthalidone 25 mg tablet RxNorm: 104357 Take 1 Tablet(s) Oral QAM every morning 02/03/20 23 024 Inactive acetaminophen 500 mg tablet RxNorm: 647158 1 TABLET ORALLY 3 TIMES DAILY (MAX APAP:4GM/24HR) 12/15/19 23 023 Inactive potassium chloride ER 20 mEq tablet,extended release RxNorm: 414471 Take 1 Tablet(s) Oral BID 12/09/19 23 024 Inactive d/c 20mEq once daily (sent from hospital) clotrimazole 1 % topical cream RxNorm: 007743 apply 1g topically to top of feet and in between toes BID 12/09/19 23 025 Inactive nystatin 100,000 unit/gram topical powder RxNorm: 485576 APPLY TO AFFECTED AREAS TOPICALLY 2 TIMES DAILY 11/21/19 23 023 Inactive Nystop 100,000 unit/gram topical powder RxNorm: 176858 Apply to abd folds, under breasts and L side of groin Topical BID x 14 days, then BID PRN 11/20/19 23 023 Inactive dx: yeast dermatitis [place] Ultra Strength 4 %-30 %-10 % topical cream RxNorm: 496655 Apply 1 Gram(s) Topical QID PRN to feet and legs for neuropathic pain 11/11/19 23 024 Inactive clotrimazole 1 % topical cream RxNorm: 480938 Apply 1/2 Gram(s) Topical BID Apply to affected areas of groin, periarea, and abdominal topically 2 times daily 11/10/19 025 Inactive hydrocortisone 2.5 % topical cream RxNorm: 592953 Apply 1/2 Gram(s) Topical BID as needed 11/10/19 024 Inactive Levemir FlexPen 100 unit/mL (3 mL) solution subcutaneous insulin pen RxNorm: 421306 Inject 30 Unit(s) Subcutaneous BID 10/07/19 023 Inactive Humulin R U-500 (Concentrated) Insulin 500 unit/mL subcutaneous soln RxNorm: 366012 Inject 100 Unit(s) Subcutaneous TID 10/07/19 024 Inactive Ozempic 0.25 mg or 0.5 mg (2 mg/3 mL) subcutaneous pen injector RxNorm: 6090016 Inject 1/2 Milligram(s) Subcutaneous QW once a week 10/07/19 024 Inactive aripiprazole 15 mg tablet RxNorm: 679271 1/2 TAB (7.5MG) ORALLY DAILY (DX:MAJOR DEPRESSIVE DISORDER) 09/23/19 23 023 Inactive Accu-Chek Guide test strips RxNorm: Use 1 Test Strip QID 09/15/19 23 023 Inactive ok to substitute with any covered alternative test strip Lancets,Thin 28 gauge RxNorm: Use 1 as directed QID 09/15/19 23 023 Inactive torsemide 20 mg tablet RxNorm: 160119 Take 1 Tablet(s) Oral BID 09/09/19 024 Inactive d/c once daily dosing carvedilol 25 mg tablet RxNorm: 277861 Take 1 Tablet(s) Oral QD 08/25/19 024 Inactive pregabalin 150 mg capsule RxNorm: 620545 1 Capsule(s) Oral HS at bed time 08/18/19 023 Inactive pregabalin 100 mg capsule RxNorm: 116694 1 Capsule(s) Oral QAM every morning 08/18/19 023 Inactive carvedilol 25 mg tablet RxNorm: 502420 1 Tablet(s) Oral QD 07/28/19 23 023 Inactive lisinopril 20 mg tablet RxNorm: 031127 Give 1 Tablet(s) Oral QD 07/28/19 23 023 Inactive Lyrica 150 mg capsule RxNorm: 326594 Take 1 Capsule(s) Oral QHS every night at bedtime 07/19/19 23 023 Inactive d/c 100mg dose Diflucan 150 mg tablet RxNorm: 603358 Take 1 Tablet(s) Oral QD repeat on day 3 and 6 07/19/19 23 023 Inactive pregabalin 100 mg capsule RxNorm: 447988 Take 1 Capsule(s) Oral QAM every morning 07/19/19 023 Inactive gatifloxacin 0.5 % eye drops RxNorm: 314500 Instill 1 Drop(s) as directed TID Instill 1 drop in to affected eye(s) starting 1 day prior to surgery and continue until gone (do not exceed 4 weeks). 07/13/19 23 023 Inactive carvedilol 25 mg tablet RxNorm: 078587 2 Tablet(s) Oral BID 07/13/19 23 023 Inactive Humulin R Regular U-100 Insulin 100 unit/mL injection solution RxNorm: 519927 85 Unit(s) Injection TID 07/13/19 23 023 Inactive ketorolac 0.5 % eye drops RxNorm: 091368 Instill 1 Drop(s) as directed QID Instill 1 drop into affected eye(s) 4 times daily starting 1 day prior to surgery and continue until gone (do not exceed 4 weeks). 07/13/19 23 023 Inactive Diflucan 150 mg tablet RxNorm: 982848 Take 1 Tablet(s) Oral QD repeat on day 3 and 6 06/30/19 23 023 Inactive Accu-Chek Guide test strips RxNorm: Use 1 Test Strip QID Use 1 test strip to monitor blood glucose 4 times daily and as needed. Dx:E11.42. 06/23/19 23 023 Inactive ok to substitute with any covered alternative test strip dextromethorphan-gu aifenesin 10 mg-100 mg/5 mL oral liquid RxNorm: 265254 Take 10 Milliliter(s) Oral every 4 hours as needed for cough 06/19/19 023 Inactive dextromethorphan-gu aifenesin 10 mg-100 mg/5 mL oral liquid RxNorm: 542844 Take 10 Milliliter(s) Oral every 4 hours as needed for cough 06/19/19 023 Inactive Lyrica 150 mg capsule RxNorm: 521890 Take 1 Capsule(s) Oral QHS every night at bedtime 06/18/19 023 Inactive d/c 100mg dose aripiprazole 15 mg tablet RxNorm: 216285 1/2 TAB (7.5MG) ORALLY DAILY (DX:MAJOR DEPRESSIVE DISORDER) 06/05/19 023 Inactive pregabalin 100 mg capsule RxNorm: 516799 1 Capsule(s) Oral QAM every morning 06/02/19 023 Inactive Banophen 50 mg capsule RxNorm: 6391230 Take 1 Capsule(s) Oral Q6H every 6 hours as needed 05/19/19 23 No Stop Date Active Novolog Flexpen U-100 Insulin aspart 100 unit/mL (3 mL) subcutaneous RxNorm: 6657064 Inject 10 Unit(s) Subcutaneous QHS every night at bedtime with nighttime snack 04/08/20 022 Inactive Novolog Flexpen U-100 Insulin aspart 100 unit/mL (3 mL) subcutaneous RxNorm: 3522985 Inject 42 Unit(s) Subcutaneous TID in addition to sliding scale 04/08/20 022 Inactive d/c 36u albuterol sulfate HFA 90 mcg/actuation aerosol inhaler RxNorm: 8391139 Take 2 Puff(s) Inhalation Q4H every four hours as needed as needed for SOB, cough, or wheezing 04/07/20 030 Active Banophen 50 mg capsule RxNorm: 3136262 Take 1 Capsule(s) Oral Q6H every 6 hours as needed 04/06/20 023 Inactive diphenhydramine 50 mg tablet RxNorm: 8517212 Take 1 Tablet(s) Oral Q6H every 6 hours as needed 04/06/20 22 022 Inactive diphenhydramine 50 mg tablet RxNorm: 2309768 1 Tablet(s) Oral Q6H every 6 hours as needed 04/06/20 22 022 Inactive Abilify 15 mg tablet RxNorm: 503686 1/2 Tablet(s) Oral QD 03/10/20 22 023 Inactive Shingrix (PF) 50 mcg/0.5 mL intramuscular suspension, kit RxNorm: 6419524 Administer 1/2 Milliliter(s) Intramuscular QD one time shingrix step 2 ( step 1 given 11/04/21) WITH needle - Nursing please administer upon arrival and once administered post a bridge message with date of administration, secretary to the vice president, expiration date, and lot# so we can update [facility] 02/18/20 22 022 Inactive dispense with needle Shingrix (PF) 50 mcg/0.5 mL intramuscular suspension, kit RxNorm: 4982673 Administer 1/2 Milliliter(s) Intramuscular QD one time shingrix step 2 ( step 1 given 11/04/21) WITH needle - Nursing please administer upon arrival and once administered post a bridge message with date of administration, secretary to the vice president, expiration date, and lot# so we can update [facility] 02/18/20 22 022 Inactive dispense with needle Lyrica 100 mg capsule RxNorm: 115722 Take 1 Capsule(s) Oral QAM every morning 01/08/20 22 022 Inactive d/c 50mg dose acetaminophen 500 mg tablet RxNorm: 006428 Take 1 Tablet(s) Oral TID 01/08/20 22 022 Inactive d/c PRN order Lyrica 150 mg capsule RxNorm: 249177 Take 1 Capsule(s) Oral QHS every night at bedtime 01/08/20 22 023 Inactive d/c 100mg dose polyethylene glycol 3350 17 gram/dose oral powder RxNorm: 417604 Take 17=1 capful Gram(s) Oral QD mix with 4-8oz of liquid 01/08/20 22 025 Inactive take this in addition to BID prn order Abilify 5 mg tablet RxNorm: 007066 Take 1 Tablet(s) Oral QD take 1 tab po QD #30 refill 5 dx: MDD 12/12/19 22 022 Inactive Abilify 5 mg tablet RxNorm: 616170 Take 1 Tablet(s) Oral QD take 1 tab po QD #30 refill 5 dx: MDD 12/12/19 22 022 Inactive Novolog Flexpen U-100 Insulin aspart 100 unit/mL (3 mL) subcutaneous RxNorm: 2572969 Inject 42 Unit(s) Subcutaneous TID in addition to sliding scale 12/10/19 22 022 Inactive d/c 36u chlorthalidone 25 mg tablet RxNorm: 143799 Take 1 Tablet(s) Oral QAM every morning 12/10/19 22 023 Inactive pregabalin 50 mg capsule RxNorm: 097766 Take 1 Capsule(s) Oral QAM every morning 11/12/19 22 022 Inactive tetanus-diphtheria toxoids-Td 2 Lf unit-2 Lf unit/0.5 mL IM suspension RxNorm: 139 Take 0.5 Miscellaneous Intramuscular 11/12/19 22 022 Inactive need tdap - nursing to administer upon arrival pregabalin 50 mg capsule RxNorm: 082639 Take 1 Capsule(s) Oral QAM every morning 10/16/19 22 022 Inactive pregabalin 50 mg capsule RxNorm: 672083 Take 1 Capsule(s) Oral QAM every morning 10/16/19 22 022 Inactive pregabalin 50 mg capsule RxNorm: 125112 1 Capsule(s) Oral QAM every morning 10/15/19 22 022 Inactive Shingrix (PF) 50 mcg/0.5 mL intramuscular suspension, kit RxNorm: 0150471 Administer 1/2 Milliliter(s) Intramuscular one time Nursing please administer upon arrival and once administered post a bridge message with date of administration, secretary to the vice president, expiration date, and lot# so we can update [facility]. 10/09/19 22 022 Inactive shingrix step 1 Shingrix (PF) 50 mcg/0.5 mL intramuscular suspension, kit RxNorm: 3292664 Administer 1/2 Milliliter(s) Intramuscular one time Nursing please administer upon arrival and once administered post a bridge message with date of administration, secretary to the vice president, expiration date, and lot# so we can [...] aspart 100 unit/mL (3 mL) subcutaneous RxNorm: 5947410 Inject 10 Unit(s) Subcutaneous QHS every night at bedtime with nighttime snack 10/08/19 22 Inactive Shingrix (PF) 50 mcg/0.5 mL intramuscular suspension, kit RxNorm: 3704002 ADMINISTER 2-DOSE SERIES PER CDC GUIDELINES 10/08/19 22 Active Shingrix (PF) 50 mcg/0.5 mL intramuscular suspension, kit RxNorm: 4297184 ADMINISTER 2-DOSE SERIES PER CDC GUIDELINES 10/08/19 22 Inactive Novolog Flexpen U-100 Insulin aspart 100 unit/mL (3 mL) subcutaneous RxNorm: 3795990 Inject 36 Unit(s) Subcutaneous TID in addition to sliding scale 10/08/19 22 Inactive cholecalciferol (vitamin D3) 1,250 mcg (50,000 unit) capsule RxNorm: 784536 Take 1 Capsule(s) Oral QW once a [...] benzoyl peroxide 10 % topical cleanser RxNorm: 862391 Apply 1 Application Topical QD apply to face, wash rinse and dry once daily (may change to QOD if drying) 08/19/19 22 022 Inactive (%covered by insurance) #60ml refill 11 dx: acne benzoyl peroxide 10 % topical cleanser RxNorm: 389574 Apply 1 Application Topical QD apply to face, wash rinse and dry once daily (may change to QOD if drying) 08/19/19 22 022 Inactive (%covered by insurance) #60ml refill 11 dx: acne Lyrica 50 mg capsule RxNorm: 937640 Take 1 Capsule(s) Oral QAM every morning Take 1 capsule by mouth once daily 08/19/19 022 Inactive benzoyl peroxide 10 % topical cleanser RxNorm: 597075 Apply 1 Application Topical QD apply to face, wash rinse and dry once daily (may change to QOD if drying) 08/19/19 022 Inactive (%covered by insurance) #60ml refill 11 dx: acne Lyrica 100 mg capsule RxNorm: 685288 Take 1 Capsule(s) Oral QHS every night at bedtime Take 1 capsule by mouth once daily at bedtime 08/19/19 22 022 Inactive Lyrica 100 mg capsule RxNorm: 227964 Take 1 Capsule(s) Oral QHS every night at bedtime Take 1 capsule by mouth once daily at bedtime 08/16/19 22 Inactive Lyrica 50 mg capsule RxNorm: 042785 Take 1 Capsule(s) Oral QAM every morning Take 1 capsule by mouth once daily 08/16/19 22 022 Inactive Levemir FlexTouch U-100 Insulin 100 unit/mL (3 mL) subcutaneous pen RxNorm: 628775 Inject 86 Unit(s) Subcutaneous BID 08/05/19 22 022 Inactive d/c 83units BID Lyrica 100 mg capsule RxNorm: 858367 Take 1 Capsule(s) Oral QHS every night at bedtime Take 1 capsule by mouth once daily at bedtime 07/14/19 22 Inactive Lyrica 50 mg capsule RxNorm: 696628 Take 1 Capsule(s) Oral QAM every morning Take 1 capsule by mouth once daily 07/14/19 22 Inactive Levemir FlexTouch U-100 Insulin 100 unit/mL (3 mL) subcutaneous pen RxNorm: 716327 Inject 83 Unit(s) Subcutaneous BID 07/08/19 22 [...] test strip hydralazine 50 mg tablet RxNorm: 227959 Take 1 Tablet(s) Oral QID 05/05/20 Inactive venlafaxine ER 225 mg tablet,extended release 24 hr RxNorm: 422861 Take 1 Tablet(s) Oral QD 05/05/20 Inactive venlafaxine ER 225 mg tablet,extended release 24 hr RxNorm: 481382 Take 1 Tablet(s) Oral QD 05/05/20 022 Inactive isosorbide mononitrate ER 30 mg tablet,extended release 24 hr RxNorm: 420729 Take 1 Tablet(s) Oral QD 05/05/20 024 Inactive hydralazine 50 mg tablet RxNorm: 185441 Take 1 Tablet(s) Oral QID 05/05/20 Inactive aspirin 81 mg tablet,delayed release RxNorm: 201710 Take 1 Tablet(s) Oral QD 03/31/20 022 Inactive Vitamin D2 1,250 mcg (50,000 unit) capsule RxNorm: 0099781 Take 1 Capsule(s) Oral QW once a week x 12 weeks 03/31/20 Inactive Vitamin D2 1,250 mcg (50,000 unit) capsule RxNorm: 3795743 Take 1 Capsule(s) Oral QW once a week 03/31/20 Inactive Zetia 10 mg tablet RxNorm: 231730 Take 1 Tablet(s) Oral QD 03/31/20 024 Inactive Zetia 10 mg tablet RxNorm: 209593 Take 1 Tablet(s) Oral QD 03/31/20 Inactive hydralazine 25 mg tablet RxNorm: 386706 Take 1 Tablet(s) Oral QID 03/31/20 021 Inactive hydralazine 25 mg tablet RxNorm: 890037 Take 1 Tablet(s) Oral QID 03/31/20 021 Inactive hydralazine 10 mg tablet RxNorm: 124705 Take 1 Tablet(s) Oral QID 03/03/20 021 Inactive cephalexin 500 mg tablet RxNorm: 875253 Take 1 Tablet(s) Oral QID 02/27/20 021 Inactive cephalexin 500 mg tablet RxNorm: 965482 Take 1 Tablet(s) Oral QID 02/27/20 021 Inactive lisinopril 40 mg tablet RxNorm: 297734 Take 1 Tablet(s) Oral QD 02/11/20 023 Inactive Eliquis 5 mg tablet RxNorm: 9004582 Take 1 Tablet(s) Oral BID 01/05/20 21 025 Inactive Eliquis 5 mg tablet RxNorm: 8215469 Take 2 Tablet(s) Oral QD 01/01/20 21 021 Inactive Lyrica 50 mg capsule RxNorm: 630428 Take 1 Capsule(s) Oral QAM every morning 12/24/19 021 Inactive Lyrica 100 mg capsule RxNorm: 229687 Take 1 Capsule(s) Oral QHS every night at bedtime 12/24/19 021 Inactive clotrimazole 1 % topical cream RxNorm: 556805 Apply to right foot and toes Topical BID 12/04/19 21 023 Inactive metoprolol succinate ER 200 mg tablet,extended release 24 hr RxNorm: 432881 Take 1 Tablet(s) Oral QD 12/04/19 023 Inactive ciprofloxacin 500 mg tablet RxNorm: 487706 Take 1 Tablet(s) Oral QD 11/30/19 021 Inactive DX ofloxacin otic drops Accu-Chek Guide test strips RxNorm: USE 1 TO CHECK GLUCOSE 4 TIMES DAILY AND NEEDED 11/15/19 21 023 Inactive Blood Glucose Test strips RxNorm: Use 1 Test Strip QID at PRN 11/05/19 21 023 Inactive E11.42 lisinopril 30 mg tablet RxNorm: 036171 Take 1 Tablet(s) Oral QD 10/30/19 21 021 Inactive lisinopril 20 mg tablet RxNorm: 742114 Take 1 Tablet(s) Oral QD 10/23/19 21 021 Inactive lisinopril 20 mg tablet RxNorm: 348018 Take 1 Tablet(s) Oral QD 10/23/19 21 021 Inactive lisinopril 10 mg tablet RxNorm: 174974 Take 1 Tablet(s) Oral QD 10/02/19 21 021 Inactive icosapent ethyl 1 gram capsule RxNorm: 6358541 Take 2 Capsule(s) (2 gm) Oral BID with meals 09/12/19 21 024 Inactive Okay to dispense one 2gm tab if you have that available. icosapent ethyl 1 gram capsule RxNorm: 3135992 Take 2 Capsule(s) Oral BID 09/12/19 21 021 Inactive Okay to dispense one 2gm tab if you have that available. amlodipine 10 mg tablet RxNorm: 042595 Take 1 Tablet(s) Oral QD 09/04/19 21 021 Inactive aspirin 81 mg tablet,delayed release RxNorm: 989049 Take 1 Tablet(s) Oral QD 09/04/19 21 021 Inactive Levemir FlexTouch U-100 Insulin 100 unit/mL (3 mL) subcutaneous pen RxNorm: 152833 Inject 150 Unit(s) Subcutaneous BID 09/04/19 21 022 Inactive venlafaxine ER 150 mg tablet,extended release 24 hr RxNorm: 184718 Take 1 Tablet(s) Oral QD 09/04/19 21 021 Inactive clotrimazole-betame thasone 1 %-0.05 % topical cream RxNorm: 954430 Apply to rash on red area on left abdomen/chest Topical BID 08/10/19 21 021 Inactive amlodipine 5 mg tablet RxNorm: 273487 Take 1 Tablet(s) Oral QD 07/31/19 21 021 Inactive cephalexin 500 mg tablet RxNorm: 229928 Take 1 Tablet(s) Oral BID BID - Twice Daily 07/31/19 21 021 Inactive Start 08/01/20 pantoprazole 40 mg tablet,delayed release RxNorm: 896064 Take 1 Tablet(s) Oral QAM every morning 07/08/19 025 Inactive clopidogrel 75 mg tablet RxNorm: 106911 Take 1 Tablet(s) Oral QD 07/08/19 021 Inactive Blood Glucose Test strips RxNorm: Use 1 Test Strip QID at PRN 07/08/19 21 021 Inactive E11.42 senna 8.6 mg tablet RxNorm: 208245 Take 1 Tablet(s) Oral QD 07/08/19 025 Inactive Novolog Flexpen U-100 Insulin aspart 100 unit/mL (3 mL) subcutaneous RxNorm: 5056598 Administer per sliding scale Milliliter(s) Subcutaneous TID 151-200: 10 u; 201-250: 20 u; 251-300: 30 u; 301-350: 40 u; 351-400: 50 u. 07/08/19 022 Inactive lisinopril 5 mg tablet RxNorm: 438239 Take 1 Tablet(s) Oral QD 07/08/19 021 Inactive Novolog Flexpen U-100 Insulin aspart 100 unit/mL (3 mL) subcutaneous RxNorm: 3004733 Inject 85 Unit(s) Subcutaneous TID 07/08/19 022 Inactive pravastatin 80 mg tablet RxNorm: 519974 Take 1 Tablet(s) Oral QHS every night at bedtime 07/08/19 21 023 Inactive clotrimazole 1 % topical cream RxNorm: 851246 Apply to bilateral groin areas Topical BID 07/08/19 21 022 Inactive metoprolol succinate ER 200 mg tablet,extended release 24 hr RxNorm: 499634 Take 1 Tablet(s) Oral QD 07/08/19 021 Inactive Vitamin D3 25 mcg (1,000 unit) tablet RxNorm: 685982 Take 1 Tablet(s) Oral QD 07/08/19 021 Inactive isosorbide dinitrate 30 mg tablet RxNorm: 020913 Take 1 Tablet(s) Oral QD 07/08/19 21 021 Inactive carbamazepine 200 mg tablet RxNorm: 938167 Take 1 Tablet(s) Oral BID 07/08/19 21 025 Inactive Levemir FlexTouch U-100 Insulin 100 unit/mL (3 mL) subcutaneous pen RxNorm: 664682 Inject 140 Unit(s) Subcutaneous BID 07/08/19 21 021 Inactive torsemide 20 mg tablet RxNorm: 272601 Take 1 Tablet(s) Oral QD 07/08/19 21 023 Inactive venlafaxine 75 mg tablet RxNorm: 710016 Take 1 Tablet(s) Oral QD 07/08/19 021 Inactive acetaminophen 500 mg tablet RxNorm: 619971 Take 1 Tablet(s) Oral TID as needed for headache 06/18/19 21 021 Inactive acetaminophen 500 mg tablet RxNorm: 020911 Take 1 Tablet(s) Oral TID as needed for headache 06/18/19 021 Inactive Lyrica 100 mg capsule RxNorm: 131704 Take 1 Capsule(s) Oral QHS every night at bedtime 06/11/19 21 021 Inactive Lyrica 50 mg capsule RxNorm: 502692 Take 1 Capsule(s) Oral QAM every morning 06/10/19 21 021 Inactive hydrocortisone 2.5 % topical cream RxNorm: 605408 Apply to bilateral groin creases Topical BID 05/15/20 20 021 Inactive clotrimazole 1 % topical cream RxNorm: 302248 Apply to bilateral groin areas Topical BID 05/15/20 20 021 Inactive Lyrica 50 mg capsule RxNorm: 450925 Take 1 Capsule(s) Oral QAM every morning 05/14/20 20 020 Inactive Lyrica 100 mg capsule RxNorm: 898638 Take 1 Capsule(s) Oral QHS every night [...] Inactive Nystop 100,000 unit/gram topical powder RxNorm: 549459 Apply to abd folds, under breasts and L side of groin Topical BID x 14 days, then BID PRN 04/08/20 20 Inactive dx: yeast dermatitis Lyrica 100 mg capsule RxNorm: 237019 Take 1 Capsule(s) Oral QHS every night at bedtime 03/13/20 20 Inactive Lyrica 50 mg capsule RxNorm: 929683 Take 1 Capsule(s) Oral QAM every morning 03/13/20 20 Inactive ketoconazole 2 % shampoo RxNorm: 665897 Apply Topical two times a week with showers 03/11/20 20 Inactive cholecalciferol (vitamin D3) 50 mcg (2,000 unit) tablet RxNorm: 340912 Take 1 Tablet(s) Oral QD 03/11/20 20 021 Inactive Zetia 10 mg tablet RxNorm: 639222 Take 1 Tablet(s) Oral QD 03/07/20 20 021 Inactive Zetia 10 mg tablet RxNorm: 982166 Take 1 Tablet(s) Oral QD 03/07/20 20 Inactive Lyrica 50 mg capsule RxNorm: 114295 Take 1 Capsule(s) Oral QAM every morning 02/15/20 20 Inactive Lyrica 100 mg capsule RxNorm: 441876 Take 1 Capsule(s) Oral QHS every night at bedtime 02/15/20 20 Inactive Lyrica 100 mg capsule RxNorm: 902993 Take 1 Capsule(s) Oral QHS every night at bedtime 02/15/20 20 Inactive Lyrica 50 mg capsule RxNorm: 446027 Take 1 Capsule(s) Oral QAM every morning 02/15/20 20 020 Inactive venlafaxine ER 75 mg capsule,extended release 24 hr RxNorm: 094573 Take 3 Capsule(s) Oral QD 06/12/19 023 Inactive polyethylene glycol 3350 17 gram/dose oral powder RxNorm: 133395 Take 17=1 capful Gram(s) Oral BID as needed mix with 4-8oz of liquid 06/12/19 22 024 Inactive icosapent ethyl 1 gram capsule RxNorm: 3280883 Take 2 Capsule(s) (2 gm) Oral BID with meals 10/07/19 23 023 Inactive Okay to dispense one 2gm tab if you have that available. Levemir FlexTouch U-100 Insulin 100 unit/mL (3 mL) subcutaneous pen RxNorm: 795633 Inject 80 Unit(s) Subcutaneous BID 07/14/19 23 023 Inactive metoprolol succinate ER 200 mg tablet,extended release 24 hr RxNorm: 047823 Take 1 Tablet(s) Oral QD 08/12/19 23 025 Inactive loperamide 2 mg capsule RxNorm: 275515 Take 1 Capsule(s) Oral QID as needed 09/06/19 25 025 Inactive hydralazine 50 mg tablet RxNorm: 826419 Take 1 Tablet(s) Oral QID 08/12/19 23 025 Inactive Soft Touch Lancets RxNorm: miscellaneous 03/04/20 24 025 Inactive Novolog Flexpen U-100 Insulin aspart 100 unit/mL (3 mL) subcutaneous RxNorm: 7222672 Insert 30 Unit(s) Subcutaneous TID with meals [...] Little interest or pleasure in doing things 40925-5 2 12/28/19 Unknown Patient Health Questionnaire (PHQ9) Feeling down, depressed, or hopeless 48169-8 2 12/28/19 Unknown Patient Health Questionnaire (PHQ9) Trouble falling or staying asleep, or sleeping too much 56847-6 1 12/28/19 Unknown Patient Health Questionnaire (PHQ9) Feeling tired or having little energy 55580-0 2 12/28/19 Unknown Patient Health Questionnaire (PHQ9) Poor appetite or overeating 65589-3 2 12/28/19 Unknown Patient Health Questionnaire (PHQ9) Feeling bad about yourself or that you are a failure or have let yourself or your family down 11041-5 0 12/28/19 Unknown Patient Health Questionnaire (PHQ9) Trouble concentrating on things, such as reading the newspaper or watching television 13858-1 0 12/28/19 Unknown Patient Health Questionnaire (PHQ9) Moving or speaking so slowly that other people could have noticed or the opposite being so figety or restless that you have been moving around a lot more than usual 08870-1 0 12/28/19 Unknown Patient Health Questionnaire (PHQ9) Thoughts that you would be better off , or of hurting yourself 07014-1 0 12/28/19 Unknown Patient Health Questionnaire (PHQ9) If you checked off any problems, how difficult Not difficult at all have these problems made it for you to do your work, take care of things at home, or get along with other people? 3 12/28/19 25 Unknown Patient Health Questionnaire (PHQ9) Total Score 9 12/28/19 25 Unknown Functional Status Functional / Cognitive Codes [...] Date Patient Education: Patient Medication Summary Completed 12/26/2024 Referral: [facility]Imaging WPtel: [address] [place], [place] [phone] Referral No Records Received 10/20/2024 Appointment: Brian Munson WPtel: [address] [place], [place] [phone] F/U 08/08/2024 Appointment: Brian Munson WPtel: [address] [place], [place] [id number] [place] F/U 07/11/2024 Referral: [facility]/Endocrinology WPtel: [address] [facility] [address] [id number] [place] Referral No Records Received 07/10/2024 Appointment: Brian Munson WPtel: [address] AWV 02/08/2024 Appointment: Brian Munson WPtel: [address] F/U 01/11/2024 Appointment: Sandra Clark WPtel: [address] [facility] [address] [id number] Telehealth Psych Follow Up 12/09 Appointment: Tapan Shirley WPtel: [address] [facility] [address] [id number] [facility] 10/26/2022 Referral: [facility] WPtel: [address] , [address] [id number] [place] Referral Records Received 09/21/2022 Appointment: Tapan Shirley WPtel: [address] [facility] 300 [id number] [place] F/U 08/11/2022 Appointment: Tapan Shirley WPtel: [address] [facility] 300 [id number] [place] F/U 07/14/2022 Appointment: Tapan Shirley WPtel: [address] [facility] 300 [id number] [place] F/U 02/10/2022 Referral: [facility] WPtel: [address] [id number] [place] Referral Completed 05/28/2021 Referral: General Cardiology Referral Complet ed 01/03/2021 Referral: General Psychologist Referral Close d Referral: General Psychiatrist Referral Patient/Family Scheduling Appointment Referral: Shyla [facility] WPtel: [facility] [id number] [place] Referral Facility Scheduling Appointment Referral: [...] Sister Jyotsna involved in his care cell# [phone] Guardian: Giulia (tapan met in person 09/01/21), [...] 05.26.2024 with Jessa Webster MD at [facility]. Start Pioglitazone 15 mg QD. Stop Basaglar insulin. Increase Ozempic 2 mg once wkly. Continue Humalin R U-500 100 units with meals TID. FOLLOW UP 2 MONTHS. If BG >400 add 50 units to next scheduled dose of Humalin R U 500 insulin 01/08/2025
[2025-01-30] MEDS: IPRAT-ALBUT 0.5-2.5 MG/3 ML NEB 1 NEB IH (22:29)
[2025-01-30] MEDS: METHYLPREDNISOLONE SOD SUCC 62.5 MG/ML (125) 125 MG IVP (23:04)
[2025-01-30 23:06] VITALS: BP 180/58; PULSE 87; RESP 20; TEMP 37.1; O2SAT 94
[2025-01-30 23:13] LABS: Troponin, Point-of-Care* 0.01 ng/ml (0.01-0.04)
--- NOTE | 2025-01-30 23:34 | PM.IMHP1 ---
Assessment and Plan Assessment and plan (1) Dyspnea on exertion: Problem comment: -acute, recurrent in the last several weeks, resolves with rest. Multiple chronic medical complexities driving this, possible acute viral inflammation -no hypoxia, no hypercapnia -not requiring oxygen supplementation -RT consult -outpatient cardiology follow-up Status: Acute (2) Small airways disease: Problem comment: -CTA shows Mosaic attenuation throughout the lungs, likely related small vessel/airway disease, including bronchitis. No focal consolidations. -afebrile, no leukocytosis, triple swab negative -DuoNeb/albuterol neb p.r.n. bronchospasm -defer antibiotics, likely viral Status: Acute (3) Chronic hypoxic respiratory failure: Problem comment: -Likely has some chronic hypoxic respiratory failure with possible obesity hypoventilation syndrome. VBG unremarkable. Restarted CPAP approximately 2 weeks ago Status: Acute (4) Morbid obesity: Problem comment: -BMI 69. Suspected to have obesity hypoventilation syndrome Status: Acute (5) TASHI on CPAP: Problem comment: -suspected to have obesity hypoventilation syndrome -restarted CPAP a couple of weeks ago, awaiting data for adjustments in settings Status: Chronic (6) Diabetes mellitus: Problem comment: -most recent A1c 7.3 -continue home Lantus 50 units b.i.d., confirm regular insulin dosing tomorrow to restart, insulin sliding scale -hold Jardiance and Ozempic Status: Acute (7) Acute on chronic diastolic heart failure: Problem comment: -most likely heart failure with preserved ejection fraction. Echocardiogram November 2024 is quite limited due to body habitus. -BNP 259, previously >500 -continue home spironolactone and empagliflozin and torsemide. (During previous hospitalization chlorthalidone was discontinued, metoprolol stopped, and carvedilol increased) Status: Acute (8) Coronary artery disease: Problem comment: - STEMI in December 2019, treated at [facility] with stenting of RCA, followed next day by stenting of distal LAD and diagonal branch. -troponins flat, 0.00, 0.01, repeat in a.m. given cardiac history -Two years ago was hospitalized with a Lexiscan showing a mild area of ischemia - medical management Status: Acute (9) Epilepsy: Problem comment: -continue carbamazepine. no evidence of recurrent seizure -seizure precautions Status: Acute Total Time Spent Total Time Spent: Today I spent 75 minutes seeing the patient, reviewing Expanse and EPIC notes/diagnostics, discussing the care plan with our care time that includes social work, PT/OT, pharmacy, RT, usp and documenting my impressions and plan in the medical record. Hospitalist- H&P: HPI History of Present Illness Date Seen: 01/30/25 Chief complaint: Short of Breath Narrative: Leonid Leahy is a 64 year old male Past medical history significant for chronic diastolic heart failure, chronic hypoxic respiratory failure, diabetes mellitus insulin dependent, epilepsy, candidal dermatitis, history of DVT on chronic anticoagulation, TASHI on CPAP, CAD, STEMI December 2019, morbid obesity, CKD is admitted to the medical floor from the ED for recurrent episode dyspnea on exertion. Patient reports a history of increasing shortness of breath with activity. Denies shortness of breath at rest. Has noted feeling winded when using his trapeze to move about in bed and with any positional changes. Mobile with a walker with increasing shortness of breath. Recovers at rest. Is not oxygen dependent. Has recently restarted using his CPAP in the last couple of weeks, awaiting follow-up for adjustments in his settings. Reports substernal chest pains which have been chronic since his STEMI and stents in 2019. These have not changed at all. Intermittently occur weekly. No new or worsening cough. Was never a smoker. Has an albuterol MDI he uses for bronchospasm on occasion. Denies new or worsening edema. No recent medication changes since his last hospitalization the end of November. Denies recent fevers. Denies headaches or dizziness. Denies abdominal pain, nausea, vomiting. In the ED, troponins are flat. CT negative for PE, questionable small vessel/airway disease such as bronchitis. No focal consolidations. Triple swab pending. Feels better after 1 duo neb. received a dose of methylprednisolone. PCP is through [facility] at his residence in [place]. Never a smoker. Rare alcohol use. Wishes to be a full code. Review of Systems Narrative: REVIEW OF SYSTEMS: Complete review of systems performed and negative unless otherwise stated in HPI or below. Medical Decision Making Medical Decision Making Code Status: Full code Has patient completed a Health Care Directive: No PFSH PFS Medical History (Updated 01/31/25 @ 00:01 by Eli Workman PA-C) Epilepsy ?G40.909 - Epilepsy, unspecified, not intractable, without status epilepticus (ICD-10) Candidal dermatitis ?B37.2 - Candidiasis of skin and nail (ICD-10) Polypharmacy ?Z79.899 - Other terminal superintendent (current) drug therapy (ICD-10) Diabetes mellitus ?E11.9 - Type 2 diabetes mellitus without complications (ICD-10) Chronic hypoxic respiratory failure ?J96.11 - Chronic respiratory failure with hypoxia (ICD-10) Anemia in chronic kidney disease (CKD) ?N18.9 - Chronic kidney disease, unspecified (ICD-10) ?D63.1 - Anemia in chronic kidney disease (ICD-10) Chronic kidney disease (CKD), stage IV (severe) ?N18.4 - Chronic kidney disease, stage 4 (severe) (ICD-10) DISH (diffuse idiopathic skeletal hyperostosis) ?M48.10 - Ankylosing hyperostosis [[place]], site unspecified (ICD-10) Edema ?R60.9 - Edema, unspecified (ICD-10) Neuropathy ?G62.9 - Polyneuropathy, unspecified (ICD-10) Learning disability ?F81.9 - Developmental disorder of scholastic skills, unspecified (ICD-10) Insomnia ?G47.00 - Insomnia, unspecified (ICD-10) Metabolic syndrome ?E88.810 - Metabolic syndrome (ICD-10) Sensorineural hearing loss (SNHL) of both ears ?H90.3 - Sensorineural hearing loss, bilateral (ICD-10) Tinnitus ?H93.19 - Tinnitus, unspecified ear (ICD-10) Hypercholesterolemia ?E78.00 - Pure hypercholesterolemia, unspecified (ICD-10) Insulin dependent diabetes mellitus Recurrent deep vein thrombosis (DVT) ?I82.409 - Acute embolism and thrombosis of unspecified deep veins of unspecified lower extremity (ICD-10) Hypertension ?I10 - Essential (primary) hypertension (ICD-10) Coronary artery disease ?I25.10 - Atherosclerotic heart disease of hughes coronary artery without angina pectoris (ICD-10) Hypertriglyceridemia ?E78.1 - Pure hyperglyceridemia (ICD-10) TASHI on CPAP ?G47.33 - Obstructive sleep apnea (adult) (pediatric) (ICD-10) ?Z99.89 - Dependence on other enabling machines and devices (ICD-10) Tachypnea ?R06.82 - Tachypnea, not elsewhere classified (ICD-10) Fever ?R50.9 - Fever, unspecified (ICD-10) CKD (chronic kidney disease) ?N18.9 - Chronic kidney disease, unspecified (ICD-10) Gout ?M10.9 - Gout, unspecified (ICD-10) Major depressive disorder ?F32.9 - Major depressive disorder, single episode, unspecified (ICD-10) Type 2 diabetes mellitus ?E11.9 - Type 2 diabetes mellitus without complications (ICD-10) Obesity ?E66.9 - Obesity, unspecified (ICD-10) Surgical History History of cholecystectomy ?Z90.49 - Acquired absence of other specified parts of digestive tract (ICD-10) Social History Narrative: Lives in a custodial in [place], [place]. Sisters Brittany Suggs ([phone]) and Blanka Mcduffie ([phone]) listed as contacts and medical decision makers. Paperwork from custodial indicates Full Code status. What is your current living situation?: I presently have a place to live Problems where you live: no known problems Problems where you live details: none In the past 12 months, utilities in danger of being shut off: no In past 12 months, lack of transportation kept you from medical appts, meetings, work, or getting things needed for daily living: no In the past 12 mos, have been you worried that your food would run out before you had money to buy more?: never true In the past 12 mos, the food you bought just didn't last and you didn't have money to buy more?: never true Highest level of school completed/degree received: 12th grade, no diploma Smoking Status: Never smoker Do you use any of these nicotine containing products: None Second hand tobacco smoke exposure: No How often do you have a drink containing alcohol: never How often do you have six or more drinks on one occasion: Never AUDIT-C Alcohol total score: 0 Non-prescribed substance use: denies use Caffeine: No How often does anyone, including family, friends and others, physically hurt you: never How often does anyone, including family, friends and others, insult or talk down to you: never How often does anyone, including family, friends and others, threaten you with harm: never How often does anyone, including family, friends and others, scream or curse at you: never service: No Meds Home Medications and Allergies Home Medications ?Medication ?Instructions ?Recorded ?Confirmed ?Type apixaban 5 mg tablet (Eliquis) 5 mg PO BID 03/07/22 12/11/24 History aripiprazole 15 mg tablet 7.5 mg PO DAILY 03/07/22 12/11/24 History aspirin 81 mg tablet,delayed 81 mg PO DAILY 03/07/22 12/11/24 History release carbamazepine 200 mg tablet 200 mg PO BID 03/07/22 12/11/24 History ezetimibe 10 mg tablet 10 mg PO DAILY 03/07/22 12/11/24 History pantoprazole 40 mg tablet,delayed 40 mg PO DAILY 03/07/22 12/11/24 History release polyethylene glycol 3350 17 17 g PO DAILY 03/07/22 12/11/24 History gram/dose oral powder pregabalin 100 mg capsule 100 mg PO QAM 03/07/22 12/11/24 History pregabalin 150 mg capsule 150 mg PO HS 03/07/22 12/11/24 History venlafaxine 75 mg capsule,extended 225 mg PO DAILY 03/07/22 12/11/24 History release 24 hr acetaminophen 500 mg tablet 500 mg PO TID PRN 06/13/22 12/12/24 History albuterol sulfate 90 mcg/actuation 1 inh inhalation Q4H PRN 06/13/22 12/11/24 History aerosol inhaler bronchospasm diphenhydramine HCl 50 mg capsule 50 mg PO Q6H PRN itching 06/13/22 12/11/24 History (Banophen) icosapent ethyl 1 gram capsule 2 g PO BID 06/13/22 12/11/24 History (Vascepa) ketoconazole 2 % shampoo 1 applic topical Q3D 06/13/22 12/11/24 History loperamide 2 mg capsule 2 mg PO Q6H PRN loose stool 06/13/22 12/11/24 History nystatin 100,000 unit/gram topical 1 applic topical BID PRN 06/13/22 12/11/24 History powder sennosides 8.6 mg tablet (senna) 8.6 mg PO DAILY 06/13/22 12/11/24 History clotrimazole 1 % topical cream 1 applic topical BID 07/25/22 12/11/24 History hydrocortisone 2.5 % topical cream 1 applic topical BID PRN #30 grams 09/14/22 12/11/24 Rx ammonium lactate 12 % lotion 1 applic topical BID #225 grams 04/01/23 12/11/24 Rx isosorbide mononitrate 60 mg 60 mg PO DAILY 12/27/23 12/11/24 History tablet,extended release 24 hr semaglutide 1 mg/dose (4 mg/3 mL) 2 mg subcut .weekly 12/27/23 12/12/24 History subcutaneous pen injector (Ozempic) potassium chloride 20 mEq 40 meq PO TID 02/20/24 12/12/24 History tablet,extended release(part/cryst) rosuvastatin 40 mg tablet 40 mg PO HS 02/20/24 12/11/24 History camphor 4 %-methyl salicylate 30 1 applic topical QID PRN 12/12/24 12/12/24 History %-menthol 10 % topical cream (Bengay Ultra Strength) cholecalciferol (vitamin D3) 1,250 1,250 mcg PO .WED 12/12/24 12/12/24 History mcg (50,000 unit) capsule cyclobenzaprine 10 mg tablet 10 mg PO HS PRN 12/12/24 12/12/24 History hydrocodone 5 mg-acetaminophen 325 1 tab PO Q4H PRN pain 12/12/24 12/12/24 History mg tablet amlodipine 10 mg tablet 5 mg (1/2 x 10 mg) PO DAILY #30 12/15/24 12/11/24 Rx tabs carvedilol 25 mg tablet 50 mg (2 x 25 mg) PO BID #120 tabs 12/15/24 12/11/24 Rx diphenoxylate-atropine 2.5 1 tab PO DAILY PRN Diarrhea #30 12/15/24 Rx mg-0.025 mg tablet tabs empagliflozin 10 mg tablet 10 mg PO DAILY #30 tabs 12/15/24 Rx (Jardiance) hydralazine 50 mg tablet 50 mg PO TID #90 tabs 12/15/24 12/11/24 Rx hydrocodone 5 mg-acetaminophen 325 1 tab PO Q6H PRN Pain #30 tabs 12/15/24 Rx mg tablet insulin glargine 100 unit/mL (3 50 unit (0.5 mL) subcut BID #10 mL 12/15/24 Rx mL) subcutaneous pen (Lantus Solostar U-100 Insulin) insulin regular human 100 unit/mL 80 unit (0.8 mL) subcut TIDWM #10 12/15/24 Rx injection solution (Novolin R mL Regular U-100 Insulin) spironolactone 25 mg tablet 50 mg (2 x 25 mg) PO DAILY #60 tabs 12/15/24 Rx torsemide 20 mg tablet 60 mg (3 x 20 mg) PO DAILY #90 tabs 12/15/24 12/11/24 Rx Allergies Allergy/AdvReac Type Severity Reaction Status Date / Time lisinopril Allergy Mild Cough Verified 01/30/25 22:06 metformin AdvReac Verified 01/30/25 22:06 Exam Narrative: Exam Narrative: PHYSICAL EXAM General: Pleasant, conversant, NAD HEENT: Normocephalic, atraumatic, sclera white, EOMI, oral mucosa moist Cardiovascular: RRR, S1S2. Chronic lower extremity edema, right greater than left Pulmonary: Diminished, no rhonchi or expiratory wheezes on limited exam. No dyspnea on room air Abdominal: Obese, distended, NTTP, no guarding Neurological: Alert, answering questions appropriately, cranial nerves intact, no focal findings Extremities: Chronic edema. Neurovascularly intact Skin: Warm, dry. Further skin exam to be completed when put into a gown Const: Vital Signs, click to edit/add: Vital Signs - 24 hr 01/30/25 20:59 01/30/25 23:06 Temperature 98.8 F 98.8 F Pulse Rate [Pulse Oximeter] 93 87 Respiratory Rate 22 20 Blood Pressure [Le ft Upper Arm] 139/53 L 180/58 H Pulse Oximetry 92 94 Oxygen Delivery Me thod Room Air Hospitalist - H&P: Result Labs Labs: Short CBC 01/30/25 Range/Units 21:15 WBC 4.41 L (4.50-11.00) K/uL Hgb 11.5 L (13.5-17.5) gm/dL Hct 36.4 L (37.0-53.0) % Plt Count 157 (140-440) K/uL [facility] 01/30/25 21:25 Sodium 142 Potassium 4.4 Chloride 107 Carbon Dioxide 29 BUN 26 Creatinine 1.3 Glucose [address] scan - chest: Attestation: I have reviewed the pertinent imaging results. Radiologist's impression: CT chest PE was acquired with 95 cc Isovue 370 IV contrast. MIP reconstructions were performed. COMPARISON: December 11, 2024. FINDINGS: Heart and vasculature: Limited evaluation secondary to body habitus and contrast bolus. No sign of pulmonary embolism to the level of the proximal segmental pulmonary arteries. Evaluation of the distal segmental and subsegmental branches is nondiagnostic. Heart size is normal. Coronary artery calcifications. Thoracic aorta and pulmonary artery are normal in caliber. Lungs and pleura: Mosaic attenuation throughout the lungs. No suspicious nodules or infiltrates. No significant pleural effusions, pleural thickening, or pneumothorax. Lymph nodes/mediastinum: No mediastinal, hilar, or axillary adenopathy. Chest wall: No masses. Upper abdomen: No acute or significant findings. Bones: Unremarkable for age. IMPRESSION: Limited evaluation secondary to body habitus and contrast bolus. No sign of pulmonary embolism to the level of the proximal segmental pulmonary arteries. Evaluation of the distal segmental and subsegmental branches is nondiagnostic. Mosaic attenuation throughout the lungs, likely related small vessel/airway disease, including bronchitis. No focal consolidations. Coronary artery calcifications.
[2025-01-30 23:43] LABS: PCR FLU A Negative PCR FLU A (Negative); PCR FLU B Negative PCR FLU B (Negative); PCR RSV Negative PCR RSV (Negative); SARS PCR* Negative SARS-CoV-2 (Negative)
[2025-01-31 00:05] VITALS: PULSE 89; RESP 22; O2SAT 96
[2025-01-31 00:10] VITALS: BP 194/92; PULSE 95; RESP 22; O2SAT 96
[2025-01-31 00:17] VITALS: BP 194/92; PULSE 94; RESP 22; O2SAT 96
[2025-01-31 06:26] LABS: HCO3 VBG 28 mmol/L (21-28); PCO2 VBG 48 mmHG (40-50); PO2 VBG < 30.1 mmHG (25-47); pH VBG 7.368 (7.32-7.43)
[2025-01-31 06:31] LABS: Hematocrit* 37.2 % (37.0-53.0); Hemoglobin* 11.7 gm/dL (13.5-17.5); Mean Corpuscular HGB Conc 32 gm/dL (32-36); Mean Corpuscular Hemoglobin 28 pg (26-34); Mean Corpuscular Volume 88 fL (80-100); Red Blood Count* 4.25 m/uL (4.30-5.90); White Blood Count* 4.47 K/uL (4.50-11.00)
[2025-01-31 06:38] LABS: Slide Review Reflex No
[2025-01-31 06:43] LABS: Chloride* 109 mmol/L (96-114); Sodium* 143 mmol/L (135-149)
[2025-01-31 06:44] LABS: Potassium* 5.0 mmol/L (3.6-5.1)
[2025-01-31 06:46] LABS: Blood Urea Nitrogen* 24 mg/dL (7-30); Creatinine* 1.3 mg/dL (0.5-1.5); Est. Creatinine Clearance* 49.28; Estimated Glomerular Filt Rate 61 ml/min
[2025-01-31 06:47] LABS: Anion Gap 6 mEq/L (7-15); Calcium* 9.1 mg/dL (8.4-10.6); Carbon Dioxide* 28 mmol/L (20-32); Glucose* 136 mg/dL (60-115)
[2025-01-31 07:00] VITALS: BP 148/65; PULSE 95; RESP 22; TEMP 36.5; O2SAT 95
[2025-01-31] MEDS: VENLAFAXINE ER 75 MG CAPSULE 225 MG PO (08:41)
[2025-01-31] MEDS: POTASSIUM CHLORIDE 10 MEQ CAPSULE ER 40 MEQ PO (08:42)
[2025-01-31] MEDS: EZETIMIBE 10 MG TABLET PO (08:44)
[2025-01-31] MEDS: ISOSORBIDE MONONITRATE ER 30 MG TAB 60 MG PO (08:44)
[2025-01-31] MEDS: APIXABAN 5 MG TABLET PO (08:46)
[2025-01-31] MEDS: OMEPRAZOLE 20 MG CAPSULE DR 40 MG PO (08:46)
[2025-01-31] MEDS: HYDRALAZINE 25 MG TABLET 50 MG PO (08:47)
[2025-01-31] MEDS: ASPIRIN 81 MG TABLET EC PO (08:48)
[2025-01-31] MEDS: SPIRONOLACTONE 25 MG TABLET 50 MG PO (08:51)
[2025-01-31] MEDS: TORSEMIDE 20 MG TABLET 60 MG PO (08:51)
[2025-01-31 08:52] VITALS: PULSE 99
[2025-01-31] MEDS: AMLODIPINE 10 MG TABLET 5 MG PO (08:54)
--- NOTE | 2025-01-31 09:00 | RESP.RT ---
Patient presented to floors overnight. Patient on 2 lpm nasal cannula at 95%, will wean oxygen as patient has TASHI and needed overnight only. Wears cpap at home at night. BS diminished. No respiratory distress noted.
[2025-01-31] MEDS: PREGABALIN 100 MG CAPSULE PO (10:13)
[2025-01-31] MEDS: DOXYCYCLINE HYCLATE 100 MG PO (10:13)
[2025-01-31] MEDS: IPRAT-ALBUT 0.5-2.5 MG/3 ML NEB 1 NEB IH (10:14)
[2025-01-31] MEDS: SODIUM CHLORIDE 0.9 % (FLUSH) 10 ML SYRINGE 5 ML IVF (10:17)
--- NOTE | 2025-01-31 10:39 | PC.SOCIAL ---
Discharge planning: Called [facility] nurse, Zulema at [phone]. She states pt can return any time and requsted a nurse to nurse call to her. Zulema confirmed pharmacy information, [facility] pharmacy in [place]. Zulema requested discharge orders be faxed to her at [phone] or secure emailed to [email or web address] loft worker pile driving to follow up as needed.
--- NOTE | 2025-01-31 11:16 | PC.NURSE ---
Pt. will be returning to [facility] in [place] today. [id number] report given to Gianni.
--- NOTE | 2025-01-31 12:00 | PC.NURSE ---
Discharge Note (CCU1) Patient was VSS. Tranfered by ambulance to shelter facility ([facility] in [place]). NC 1.5 L. Afebrile. Patient discharged 11:44 am.
--- NOTE | 2025-01-31 16:18 | P.DS_ITS ---
DS: Providers Provider Date Seen: 01/31/25 Date of admission: 01/30/25 23:49 Primary care physician: Not a Local Provider Admitting Clinician: Eli Workman PA-C Consults: 01/31/25 00:05 Consult to Occupational Therapy [CONS] Routine Comment: Reason(s) for OT Consult:: Evaluate and Treat Any Restrictions?:: No Restrictions Consult to Physical Therapy [CONS] Routine Comment: Reason(s) for PT Consult:: Evaluate and Treat Any Restrictions?:: No Restrictions Consult to Respiratory Therapy [CONS] Routine Comment: Reason(s) for RT Consult:: Consult Consult to [employer] [CONS] Routine Comment: Reason for Consult:: Social Service Consult 01/31/25 02:07 Consult to [employer] Sales[employer] [CONS] Routine Comment: Reason for Consult:: PT Requests Adv Dir Info Social Service Consult Attending Physician on discharge: Lesley Mathis MD Date of Discharge: 01/31/25 DS: Diagnosis Discharge Diagnosis (1) Dyspnea on exertion: Status: Acute Problem details: -acute, recurrent in the last several weeks, resolves with rest. Multiple chronic medical complexities driving this, possible acute viral inflammation -no hypoxia, no hypercapnia -not requiring oxygen supplementation -RT consult -outpatient cardiology follow-up -discharging just 12 hours after admission. I recommended as did the admitting hospitalist that a cardiology follow-up and significant lifestyle changes are necessary. However, I did send a nebulizer with DuoNebs to the nursing home as well as a very short course of oral prednisone and oral doxycycline. (2) Chronic hypoxic respiratory failure: Status: Acute Problem details: -Likely has some chronic hypoxic respiratory failure with possible obesity hypoventilation syndrome. VBG unremarkable. Restarted CPAP approximately 2 weeks ago (3) TASHI on CPAP: Status: Chronic Problem details: -suspected to have obesity hypoventilation syndrome -restarted CPAP a couple of weeks ago, awaiting data for adjustments in settings (4) Morbid obesity: Status: Acute Problem details: -BMI 69. Suspected to have obesity hypoventilation syndrome (5) Small airways disease: Status: Acute Problem details: -CTA shows Mosaic attenuation throughout the lungs, likely related small vessel/airway disease, including bronchitis. No focal consolidations. -afebrile, no leukocytosis, triple swab negative -DuoNeb/albuterol neb p.r.n. bronchospasm -defer antibiotics, likely viral DS: Summary Hospital Course Hospital Course: BRIEF HOSPITAL COURSE: Patient was admitted for 12 hours.. Synopsis of acute inpatient issues are outlined above. Chronic medical conditions with notable findings outlined above. Our team did not feel like there were any acute issues requiring hospitalization. We all feel like he is high risk and without lifestyle changes, he will almost assuredly return with ongoing issues. He needs to be compliant as possible with his CPAP. He needs to lose weight. He needs to control his blood sugar. There is limited insight into his chronic medical conditions and status given his baseline intellectual abilities. DISCHARGE MEDICATIONS: See Reconciled list - SIGNIFICANT CHANGES: P.r.n. nebulized DuoNebs, albuterol Short course of oral prednisone and oral doxycycline Specific instructions to the patient and follow-up are outlined below. REVIEW OF SYSTEMS No new chest pain or dyspnea Pain controlled No voiding difficulties Tolerating diet challenge PHYSICAL EXAM: CONSTITUTIONAL: Conversive, A/O. GENERAL: Well-developed and well above ideal body weight, in no respiratory distress. VITAL SIGNS: see record. HEENT: Sclerae are anicteric. No petechiae. CARDIAC: rhythm is regular. There is no S3 or rub. No harsh murmurs. Extremities show trace edema with symmetrical pulses. PULM: good air entry with no wheeze. NEURO: Speech is fluent. A brief neurologic exam is negative. SKIN: No rashes, petechiae, concerning changes PSYCHIATRIC: Euthymic. DISPOSITION: Non Urgent BLS to his nursing home Time spent on discharge 37 minutes. Status at Discharge Functional status at discharge: uses cane/walker Overall status at discharge: patient is progressing back to baseline Time Spent with Patient Time attestation: Total time spent providing and/or coordinating discharge services: Exam Const: Vital Signs, click to edit/add: Vital Signs - 24 hr 01/30/25 20:59 01/30/25 23:06 01/31/25 00:05 Temperature 98.8 F 98.8 F Pulse Rate Pulse Rate [Left P ulse Oximeter] Pulse Rate [Pulse Oximeter] 93 87 Respiratory Rate 22 20 22 Blood Pressure [Le ft Arm] Blood Pressure [Le ft Upper Arm] 139/53 L 180/58 H Pulse Oximetry 92 94 96 Oxygen Delivery Me thod Room Air OxyMask Oxygen Flow Rate 7 01/31/25 00:05 01/31/25 00:10 01/31/25 00:10 Temperature Pulse Rate 89 Pulse Rate [Left P ulse Oximeter] 95 Pulse Rate [Pulse Oximeter] Respiratory Rate 22 Blood Pressure [Le ft Arm] 194/92 H Blood Pressure [Le ft Upper Arm] Pulse Oximetry 96 96 Oxygen Delivery Me thod OxyMask Oxygen Flow Rate 7 01/31/25 00:17 01/31/25 00:17 01/31/25 07:00 Temperature 97.7 F Pulse Rate Pulse Rate [Left P ulse Oximeter] 94 95 Pulse Rate [Pulse Oximeter] Respiratory Rate 22 22 22 Blood Pressure [Le ft Arm] 194/92 H 148/65 H Blood Pressure [Le ft Upper Arm] Pulse Oximetry 96 96 95 Oxygen Delivery Me thod OxyMask OxyMask Nasal Cannula Oxygen Flow Rate 7 7 1.5 01/31/25 07:00 01/31/25 08:52 Temperature Pulse Rate 99 Pulse Rate [Left P ulse Oximeter] 95 Pulse Rate [Pulse Oximeter] Respiratory Rate Blood Pressure [Le ft Arm] Blood Pressure [Le ft Upper Arm] Pulse Oximetry Oxygen Delivery Me thod Oxygen Flow Rate DS: Data Data Completed and Pending Completed studies during hospitalization: Procedures Assistance with Respiratory Ventilation, Less than 24 Consecutive Hours, Continuous Positive Airway Pressure (12/11/24) Introduction of Other Gas into Respiratory Tract, Via Natural or Artificial Opening (07/24/22) Introduction of Other Therapeutic Substance into Respiratory Tract, Via Natural or Artificial Opening (12/11/24) Labs on day of discharge: Labs from last 24 hours 01/31/25 01/30/25 01/30/25 06:12 23:15 23:00 WBC 4.47 L RBC 4.25 L Hgb 11.7 L Hct 37.2 MCV 88 MCH 28 MCHC 32 RDW Coeff of Kaylen Plt Count 147 Neut % (Auto) Lymph % (Auto) Gates % (Auto) Eos % (Auto) Baso % (Auto) Neut # (Auto) Lymph # (Auto) Gates # (Auto) Eos # (Auto) Baso # (Auto) Abs Immat Gran (auto) Imm/Tot Granulo (auto) VBG pH 7.368 VBG pCO2 48 VBG pO2 < 30.1 VBG HCO3 28 Sodium 143 Potassium 5.0 Chloride 109 Carbon Dioxide 28 Anion Gap 6 L BUN 24 Creatinine 1.3 Estimated Creat Clear 49.28 Estimated GFR 61 Glucose 136 H Calcium 9.1 Magnesium Troponin I 0.02 NT-Pro-B Natriuret Pep SARS-CoV-2 (PCR) Negative SARS-CoV-2 Influenza Type A (PCR) Negative PCR FLU A Influenza Type B (PCR) Negative PCR FLU B RSV (PCR) Negative PCR RSV POC Troponin I 0.01 01/30/25 01/30/25 21:25 21:15 WBC 4.41 L RBC 4.16 L Hgb 11.5 L Hct 36.4 L MCV 88 MCH 28 MCHC 32 RDW Coeff of Kaylen 14.7 Plt Count 157 Neut % (Auto) 56.5 Lymph % (Auto) 28.1 Gates % (Auto) 8.2 Eos % (Auto) 6.3 Baso % (Auto) 0.7 Neut # (Auto) 2.50 Lymph # (Auto) 1.20 Gates # (Auto) 0.40 Eos # (Auto) 0.30 Baso # (Auto) 0.00 Abs Immat Gran (auto) 0.00 Imm/Tot Granulo (auto) 0.2 VBG pH 7.414 VBG pCO2 47 VBG pO2 41.2 VBG HCO3 30 H Sodium 142 Potassium 4.4 Chloride 107 Carbon Dioxide 29 Anion Gap 6 L BUN 26 Creatinine 1.3 Estimated Creat Clear 49.28 Estimated GFR 61 Glucose 91 Calcium 8.9 Magnesium 2.2 Troponin I NT-Pro-B Natriuret Pep 259 SARS-CoV-2 (PCR) Influenza Type A (PCR) Influenza Type B (PCR) RSV (PCR) POC Troponin I 0.00 L Discharge Plan Discharge Disposition: [facility] Date of Admission: 01/30/25 23:49 Attending Provider on Discharge: Lesley Mathis Primary Care Provider: Provider,Not a Local Discharge Medications: New ipratropium-albuterol 0.5 mg-3 mg(2.5 mg base)/3 mL solution for nebulization 3 ml inhalation Q4-6H PRNQty: 180 0RF (DME) nebulizer and compressor [All-In-One Nebulizer System] Device See Rx Instructions .Route Qty: 1 0RF Rx Instructions: As directed doxycycline hyclate 100 mg tablet 100 mg PO BID 5 Days Qty: 10 0RF prednisone 20 mg tablet 20 mg PO DAILY Qty: 4 0RF Continued aripiprazole 15 mg tablet 7.5 mg PO DAILY Eliquis 5 mg tablet 5 mg PO BID aspirin 81 mg tablet,delayed release (DR/EC) 81 mg PO DAILY venlafaxine 75 mg capsule,extended release 24hr 225 mg PO DAILY carbamazepine 200 mg tablet 200 mg PO BID pantoprazole 40 mg tablet,delayed release (DR/EC) 40 mg PO DAILY ezetimibe 10 mg tablet 10 mg PO DAILY pregabalin 100 mg capsule 100 mg PO QAM pregabalin 150 mg capsule 150 mg PO HS polyethylene glycol 3350 17 gram/dose powder 17 g PO DAILY Rx Instructions: AND TWICE DAILY NEEDED sennosides [senna] 8.6 mg tablet 8.6 mg PO DAILY loperamide 2 mg capsule 2 mg PO Q6H PRN (Reason: loose stool) acetaminophen 500 mg tablet 500 mg PO TID PRN nystatin 100,000 unit/gram powder 1 applic TOPICAL BID PRN icosapent ethyl [Vascepa] 1 gram capsule 2 g PO BID carvedilol 25 mg tablet 50 mg PO BID Humulin R U-500 (Conc) Kwikpen 500 unit/mL (3 mL) insulin pen See Rx Instructions subcut .COMPLEX Rx Instructions: 140 UNIT AM &NOON AND 160 UN ITS WITH SUPPER subcutaneously TID; pioglitazone 30 mg tablet 30 mg PO DAILY albuterol sulfate 90 mcg/actuation HFA aerosol inhaler 1 inh INHALATION Q4H PRN (Reason: bronchospasm) Qty: 8.5 0RF hydrocortisone 2.5 % cream 1 applic topical BID PRNQty: 30 1RF ammonium lactate 12 % lotion 1 applic topical BID Qty: 225 0RF isosorbide mononitrate 60 mg tablet extended release 24 hr 60 mg PO DAILY Ozempic 1 mg/dose (4 mg/3 mL) pen injector 2 mg subcut .weekly potassium chloride 20 mEq tablet,ER particles/crystals 40 meq PO TID rosuvastatin 40 mg tablet 40 mg PO HS cholecalciferol (vitamin D3) 1,250 mcg (50,000 unit) capsule 1,250 mcg PO WE cyclobenzaprine 10 mg tablet 10 mg PO HS PRN hydrocodone-acetaminophen 5-325 mg tablet 1 tab PO Q4H PRN (Reason: pain) spironolactone 25 mg Tablet 50 mg PO DAILY Qty: 60 0RF torsemide 20 mg tablet 60 mg PO DAILY Qty: 90 0RF amlodipine 10 mg tablet 5 mg PO DAILY Qty: 30 0RF hydralazine 50 mg tablet 50 mg PO TID Qty: 90 0RF Patient Comments: 08,12,16,20 Jardiance 10 mg Tablet 10 mg PO DAILY Qty: 30 0RF Discharge Orders: Discharge Order (Routine); Ordered 01/31/25 Ordered By: Lesley Mathsi Additional Instructions: 1. He will be on a few days of oral antibiotic (doxycycline) and prednisone for bronchitis 2. I kept his meds the same at baseline. I am only adding the antibiotic, prednisone. 3. In addition, I'm sending a nebulizer, duonebs and an albuterol inhaler to help with any shortness of breath to help prevent a trip back to the ED. Activity Level: Activity as Tolerated Discharge Diet: Diabetic Follow Up Appointments: Provider,Not a Local [Primary Care Provider, Family Practice] Referral Note: Dheeraj is the group of providers that see him at the nursing home. no future appts made. Forms: [facility]mit [facility]: [facility]isted Living Discharge Potential: Poor Length of Stay: >90 days Can use facility standing orders?: Yes Code Status: Full Code Rehab Potential: Poor Oxygen: No Orders are good >30 days: Yes
== END 2025-01-31 11:44 ==
LOC: ED 22:57 → MEDSURG 23:51
PROVIDERS: Admitting Provider Physician Assistant; Emergency Provider Family Medicine; Visit Provider Family Medicine
DX: J96.21 Acute and chronic respiratory failure with hypoxia (principal); E66.01 Morbid (severe) obesity due to excess calories; G40.909 Epilepsy, unspecified, not intractable, without status epilepticus; J98.8 Other specified respiratory disorders; G47.33 Obstructive sleep apnea (adult) (pediatric); Z99.89 Dependence on other enabling machines and devices; E11.9 Type 2 diabetes mellitus without complications; Z79.4 Long term (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 insulin
CPT/HCPCS: 36415; 71275; 80048; 82803; 82962; 83735; 83880; 84484; 85025; 85027; 87637; 93005; 94761; 96374; 97110; 97161; 97165; 99285; A9270; G0378; J1815; J2919; J7512; Q9967

== ENCOUNTER 2025-01-31 11:39 | Outpatient (CLI) | payer MEDICARE, MEDICAID, SELFPAY | END 2025-01-31 11:40 | disposition home or self-care (01) | LOC: AMB 02-01 11:40 | PROVIDERS: Visit Provider Family Medicine | DX: R06.09 Other forms of dyspnea (principal) | CPT/HCPCS: A0425; A0428 ==

== ENCOUNTER 2025-04-29 07:25 | Outpatient (CLI) | payer MEDICARE, MEDICAID, SELFPAY | END 2025-04-29 07:26 | disposition home or self-care (01) | PROVIDERS: Visit Provider Emergency Medicine | DX: L89.309 Pressure ulcer of unspecified buttock, unspecified stage (principal); R53.1 Weakness | CPT/HCPCS: A0425; A0427 ==

== ENCOUNTER 2025-04-29 07:56 | Emergency (ER) | payer MEDICARE, MEDICAID, SELFPAY ==
--- OUTSIDE RECORDS SUMMARY | 2020-02-11 18:00 | XMS_ITS | CCD ---
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 Name Role Phone Rosalina Shirley PA-C Primary Care Provider Unavailabl e Rosalina Shirley PA-C Chronic Care Management Unavaila ble Summary Purpose DataExchange Insurance Providers Payer name Policy type / Coverage type Covered democrat ID Effective Begin Date Effective End Date Medicare [place] Medicare Part B [id number] Unknown Unknown Medicaid [place] Medicare Part B [id number] Unknown Unknown Family History Family History data not found Problems Condition Codes Effective Dates Condition St atus Contact with and (suspected) exposure to other viral communicable diseases ICD-10: Z20.828 ICD-9: V01.7909/Active Medication Administered No Medication Administered data Immunizations Vaccine Codes Dose Date Status Influenza CVX: 141 02/13/2019 Hepatitis B CVX: 43 02/16/2014 Hepatitis B CVX: 43 10/12/2013 Hepatitis B CVX: 43 03/14/2013 Tdap CVX: 115 05/07/2009 Tetanus, Diptheria, Pertussis CVX: 115 2008 Reason For Visit No Reason For Visit data Encounters Encounter Performer Location Location Address Codes Cristiano e [phone] EST. PATIENT, LEVEL I w/ CS modifier Diagnosis: Contact with and (suspected) exposure to other viral communicable diseases[ICD10: Z20.828]A[facility]il [facility]erreroMer[facility] Centerko[address] [place], [place] [address]TUW-2: [id number] Plan of Care Planned Activity Notes Codes Status Date Referral: [facility] WPtel: [address], [address] [id number] [place]ReferralRecords Vhicvstz01/08/2023Referral: [facility] WPtel: [address] [id number]/12/2022Referral: General CardiologyReferralCompleted 1Referral: General PsychologistReferralClosed Instructions Comment Date Leonid is a Male being seen living at The [facility]. Initial BPS visit 01/2020. PMHx including DMII, CAD w/ 5 stents, Depression, Seizure Disorder and CKD stage 3. He moved into The [facility] in 12/2019 but after a hospitalization 05/2021 he moved to [facility] to have closer nursing attention. Sister Jyotsna involved in his care cell# [phone] Guardian: Don (rosalina met in person 09/01/21), now has Lexii (same group as don)Lab Schedule: * 10/06/2022
--- OUTSIDE RECORDS SUMMARY | 2020-02-14 18:00 | XMS_ITS | CCD ---
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 Legal Practice Manager Name Role Phone Tapan Shirley PA-C Primary Care Provider Unavailabl e Tapan Shirley PA-C Chronic Care Management Unavaila ble Summary Purpose DataExchange Insurance Providers Payer name Policy type / Coverage type Covered democrat ID Effective Begin Date Effective End Date Medicare [place] Medicare Part B [id number] Unknown Unknown Medicaid [place] Medicare Part B [id number] Unknown Unknown Family History Family History data not found Problems Condition Codes Effective Dates Condition St atus Diabetes Unknown 02/12/2020 Active Diabetes mellitus Type 2 Unknown 02/12/2020 Act annie Anemia due to stage 3b chronic kidney di sease ICD-10: N18.32 ICD-9: 285.21002/12/2020ActiveChronic kidney disease, stage 3 unspecifiedICD-10: N18.30002/12/2020ActiveCKD stage 3 due to type 2 diabetes mellitusICD-10: E11.22 ICD-9: 250.40002/12/2020ActiveContact with and (suspected) exposure to other viral communicable diseasesICD-10: Z20.828 ICD-9: V01.7902/12/2020ActiveCoronary artery disease involving [place] coronary artery of [place] heart, angina presence unspecifiedICD-10: I25.10 ICD-9: 414.0109ActiveDepressionICD-10: F32.9 ICD-9: 15297ActiveGout due to renal impairmentICD-10: M10.30 ICD-9: 274.1009ActiveHyperlipidemia associated with type 2 diabetes mellitusICD-10: E11.69 ICD-9: 250.8009ActiveLearning disabilityICD-10: F81.9 ICD-9: 315.209ActiveLong term (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 insulinICD-10: Z79.4 02/12/2020ActiveLower extremity edemaICD-10: R60.0 ICD-9: 782.309ActiveSecondary hypertensionICD-10: I15.9 ICD-9: 405.9909ActiveSeizure disorderICD-10: G40.909 ICD-9: 345.9009ActiveType 2 diabetes mellitus with diabetic polyneuropathy, with long-term current use of insulinICD-10: E11.42 ICD-9: 250.6009ActiveVitamin D deficiencyICD-10: E55.9 ICD-9: 268.909ActiveAnemia in chronic kidney diseaseICD-10: D63.1 02/12/2020ResolvedHyperlipidemia, unspecifiedICD-10: E78.509Resolved Medications Medication Codes Instructions Start Date Stop Date Status Fill Instructions Lyrica 50 mg capsule RxNorm: 432150 Take 1 Capsule(s) Oral QAM every morning 0 02/15/20 20 Inactive Lyrica 100 mg capsule RxNorm: 989597 Take 1 Capsule(s) Oral QHS every night at bedtime 0 02/15/20 20 Inactive Lyrica 100 mg capsule RxNorm: 334799 Take 1 Capsule(s) Oral QHS every night at bedtime 0 02/15/20 20 Inactive Lyrica 50 mg capsule RxNorm: 751232 Take 1 Capsule(s) Oral QAM every morning 0 02/15/20 20 Inactive Medication Administered No Medication Administered data Immunizations Vaccine Codes Dose Date Status Influenza CVX: 141 02/13/2019 Hepatitis B CVX: 43 02/16/2014 Hepatitis B CVX: 43 10/12/2013 Hepatitis B CVX: 43 03/14/2013 Tdap CVX: 115 05/07/2009 Tetanus, Diptheria, Pertussis CVX: 115 2008 Reason For Visit No Reason For Visit data Plan of Care Planned Activity Notes Codes Status Date Referral: [facility] WPtel: [address] [place], [address] [id number] USReferralRecords Hcselezq47/08/2023Referral: [facility] WPtel: [address] [id number]/12/2022Referral: General CardiologyReferralCompleted 1Referral: General PsychologistReferralClosed Instructions Comment Date Leonid is a Male being seen living at The [facility]. Initial BPS visit 01/2020. PMHx including DMII, CAD w/ 5 stents, Depression, Seizure Disorder and CKD stage 3. He moved into [facility] in 12/2019 but after a hospitalization 05/2021 he moved to the [facility] to have closer nursing attention. Sister Jyotsna involved in his care cell# [phone] Guardian: Don (tapan met in person 09/01/21), now has Lexii (same group as don)Lab Schedule: * 10/06/2022
--- OUTSIDE RECORDS SUMMARY | 2020-02-19 18:00 | XMS_ITS | CCD ---
Author Name Sandra Mandujano CNP Address [address] [place] [address] Phone Organization [facility] Phone Care Team Providers Care Rivet Tosser Name Role Phone Tapan Shirley PA-C Primary Care Provider Unavailabl e Tapan Shirley PA-C Chronic Care Management Unavaila ble Summary Purpose DataExchange Insurance Providers Payer name Policy type / Coverage type Covered libertarian ID Effective Begin Date Effective End Date Medicare [place] Medicare Part B [id number] Unknown Unknown Medicaid [place] Medicare Part B [id number] Unknown Unknown Family History Family History data not found Problems Condition Codes Effective Dates Condition St atus Diabetes Unknown 02/12/2020 Active Diabetes mellitus Type 2 Unknown 02/12/2020 Act annie Anemia due to stage 3b chronic kidney di sease ICD-10: N18.32 ICD-9: 285.21002/12/2020ActiveChronic kidney disease, stage 3 unspecifiedICD-10: N18.30002/12/2020ActiveCKD stage 3 due to type 2 diabetes mellitusICD-10: E11.22 ICD-9: 250.4009ActiveContact with and (suspected) exposure to other viral communicable diseasesICD-10: Z20.828 ICD-9: V01.7909ActiveCoronary artery disease involving [place] coronary artery of [place] heart, angina presence unspecifiedICD-10: I25.10 ICD-9: 414.0109ActiveDepressionICD-10: F32.9 ICD-9: 20058ActiveGout due to renal impairmentICD-10: M10.30 ICD-9: 274.1009ActiveHyperlipidemia [...] chronic kidney diseaseICD-10: D63.1 02/12/2020ResolvedHyperlipidemia, unspecifiedICD-10: E78.509Resolved Medication Administered No Medication Administered data Immunizations Vaccine Codes Dose Date Status Influenza CVX: 141 02/13/2019 Hepatitis B CVX: 43 02/16/2014 Hepatitis B CVX: 43 10/12/2013 Hepatitis B CVX: 43 03/14/2013 Tdap CVX: 115 05/07/2009 Tetanus, Diptheria, Pertussis CVX: 115 2008 Reason For Visit No Reason For Visit data Encounters Encounter Performer Location Location Address Codes Cristiano e ([phone]) DOMICIL/R-HOME VISIT NEW PAT Diagnosis: Contact with and (suspected) exposure to other viral communicable diseases[ICD10: Z20.828] Diagnosis: jail (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 insulin[ICD10: Z79.4] Diagnosis: Type 2 diabetes mellitus with hyperglycemia, with long-term current use of insulin[ICD10: E11.65] Diagnosis: Secondary hypertension[ICD10: I15.9] Diagnosis: Chronic kidney disease, stage 3 unspecified[ICD10: N18.30] Diagnosis: CKD stage 3 due to type 2 diabetes mellitus[ICD10: E11.22] Diagnosis: Anemia in chronic kidney disease[ICD10: D63.1] Diagnosis: Anemia due to stage 3b chronic kidney disease[ICD10: N18.32] Diagnosis: Seizure disorder[ICD10: G40.909] Diagnosis: Type 2 diabetes mellitus with diabetic polyneuropathy, with long-term current use of insulin[ICD10: E11.42] Diagnosis: Learning disability[ICD10: F81.9] Diagnosis: Hyperlipidemia, unspecified[ICD10: E78.5] Diagnosis: Hyperlipidemia associated with type 2 diabetes mellitus[ICD10: E11.69] Diagnosis: Depression[ICD10: F32.9] Diagnosis: Coronary artery disease involving [place] coronary artery of [place] heart, angina presence unspecified[ICD10: I25.10] Diagnosis: Lower extremity edema[ICD10: R60.0] Diagnosis: Gout due to renal impairment[ICD10: M10.30] Diagnosis: Vitamin D deficiency[ICD10: E55.9]S[facility] Della [facility] [address] [place] [address]HVK-4: [id number] Plan of Care Planned Activity Notes Codes Status Date Referral: [facility] WPtel: [address] [id number] USReferralRecords Pdavhprw04/08/2023Referral: [facility] WPtel: [address] [id number] XEMvjcgmitGqhcslyla28/12/2022Referral: General CardiologyReferralCompleted 1Patient Education: Patient Medication GaabjcoBeqngbusn13/28/2020 Patient Education: Alzheimer''s DxtkkxrAbklyxurp39/28/2020Patient Education: Influenza KejeollWdasgsvge44/28/2020Patient Education: DementiaCompleted 02/12/2020Referral: General PsychologistReferralClosed Instructions Comment Date Leonid is a Male being seen living at The [facility]. Initial BPS visit 01/2020. PMHx including DMII, CAD w/ 5 stents, Depression, Seizure Disorder and CKD stage 3. He moved into The [facility] in 12/2019 but after a hospitalization 05/2021 he moved to the [facility] to have closer nursing attention. Sister Jyotsna involved in his care cell# [phone] Guardian: Don (tapan met in person 09/01/21), now has Lexii (same group as don)Lab Schedule: * 10/06/2022 Epilepsy Monitor. Diabetes Nursing to send over BG log.?? Checking A1C Learning disability Continue to live in congregate setting with supports.?? medical terminologist (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 insulin See E11.42 Chronic Kidney Disease Checking CBC Gout due to renal impairment Monitor for acute flare Depression No concerns voiced today. Continue current treatment regimen and monitor. Edema Recently improved. Monitor.?? Vitamin D Deficiency Checking Vit D level.?? Contact with and (suspected) exposure to other viral communicable diseases Results: Negative Ischemic Heart Disease Continue to follow with cardiology.?? Hypertension Take BP daily?? .02/12/2020
--- OUTSIDE RECORDS SUMMARY | 2020-03-06 18:00 | XMS_ITS | CCD ---
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 Pan Reclaim Processor Name Role Phone Tapan Shirley PA-C Primary Care Provider Unavailabl e Tapan Shirley PA-C Chronic Care Management Unavaila ble Summary Purpose DataExchange Insurance Providers Payer name Policy type / Coverage type Covered green party ID Effective Begin Date Effective End Date Medicare [place] Medicare Part B [id number] Unknown Unknown Medicaid [place] Medicare Part B [id number] Unknown Unknown Family History Family History data not found Allergies, Adverse Reactions, Alerts Substance Reaction Codes Entered Date Inactivated Date Status LISINOPRIL RxNorm: 1027190No Inactive DateActiveMetformin BAwThpjrpd78/28/2020No Inactive DateActive Problems Condition Codes Effective Dates Condition St atus Diabetes Unknown 02/12/2020 Active Diabetes mellitus Type 2 Unknown 02/12/2020 Act annie Anemia due to stage 3b chronic kidney di sease ICD-10: N18.32 ICD-9: 285.ActiveChronic kidney disease, stage 3 unspecifiedICD-10: N18.30002/12/2020ActiveCKD stage 3 due to type 2 diabetes mellitusICD-10: E11.22 ICD-9: 250.4009ActiveContact with and (suspected) exposure to other viral communicable diseasesICD-10: Z20.828 ICD-9: V01.7909ActiveCoronary artery disease involving [place] coronary artery of [place] heart, angina presence unspecifiedICD-10: I25.10 ICD-9: 414.0109ActiveDepressionICD-10: F32.9 ICD-9: 02717ActiveGout due to renal impairmentICD-10: M10.30 ICD-9: 274.1009ActiveHyperlipidemia associated with type 2 diabetes mellitusICD-10: E11.69 ICD-9: 250.8009ActiveLearning disabilityICD-10: F81.9 ICD-9: 315.209ActiveLong term (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 insulinICD-10: Z79.4 02/12/2020ActiveLower extremity edemaICD-10: R60.0 ICD-9: 782.309ActiveSecondary hypertensionICD-10: I15.9 ICD-9: 405.9909ActiveSeizure disorderICD-10: G40.909 ICD-9: 345.90002/12/2020ActiveType 2 diabetes mellitus with diabetic polyneuropathy, with long-term current use of insulinICD-10: E11.42 ICD-9: 250.6009ActiveVitamin D deficiencyICD-10: E55.9 ICD-9: 268.909ActiveAnemia in chronic kidney diseaseICD-10: D63.1 02/12/2020ResolvedHyperlipidemia, unspecifiedICD-10: E78.509Resolved Medications Medication Codes Instructions Start Date Stop Date Status Fill Instructions Zetia 10 mg tablet RxNorm: 659904 Take 1 Tablet(s) Oral QD 0 09/11/19 21 Inactive Zetia 10 mg tablet RxNorm: 838696 Take 1 Tablet(s) Oral QD 0 03/07/20 20 Inactive Lyrica 50 mg capsule RxNorm: 864025 Take 1 Capsule(s) Oral QAM every morning 0 02/15/20 20 Inactive Lyrica 100 mg capsule RxNorm: 957147 Take 1 Capsule(s) Oral QHS every night at bedtime 0 02/15/20 20 Inactive Lyrica 100 mg capsule RxNorm: 876082 Take 1 Capsule(s) Oral QHS every night at bedtime 0 02/15/20 20 Inactive Lyrica 50 mg capsule RxNorm: 840849 Take 1 Capsule(s) Oral QAM every morning [...] Codes Status Date Referral: [facility] WPtel: [address] [id number] [place]ReferralRecords Tbhsxgyv83/08/2023Referral: [facility] WPtel: [address] [id number] MZTvsqkxbqAotleguhm00/12/2022Referral: General CardiologyReferralCompleted 1Referral: General PsychologistReferralClosed Instructions Comment Date Leonid is a Male being seen living at The [facility]. Initial BPS visit 01/2020. PMHx including DMII, CAD w/ 5 stents, Depression, Seizure Disorder and CKD stage 3. He moved into [facility] in 12/2019 but after a hospitalization 05/2021 he moved to the [facility] to have closer nursing attention. Sister Jyotsna involved in his care cell# [phone] Guardian: Don (tapan met in person 09/01/21), now has Lexii (same group as don)Lab Schedule: * 10/06/2022
--- OUTSIDE RECORDS SUMMARY | 2020-03-12 18:00 | XMS_ITS | CCD ---
Author Name Sandra Mandujano CNP Address [address] [place] [address] Phone Organization [facility] Phone Care Team Providers Care Armored Car Driver Name Role Phone Tapan Shirley PA-C Primary Care Provider Unavailabl e Tapan Shirley PA-C Chronic Care Management Unavaila ble Summary Purpose DataExchange Insurance Providers Payer name Policy type / Coverage type Covered democrat ID Effective Begin Date Effective End Date Medicare [place] Medicare Part B [id number] Unknown Unknown Medicaid [place] Medicare Part B [id number] Unknown Unknown Family History Family History data not found Allergies, Adverse Reactions, Alerts Substance Reaction Codes Entered Date Inactivated Date Status LISINOPRIL RxNorm: 6665237No Inactive DateActiveMetformin BCqQoxalnm96/28/2020No Inactive DateActive Problems Condition Codes Effective Dates Condition St atus CKD stage 3 due to type 2 diabetes [place] ICD-10: E11.22 ICD-9: 250.4010ActiveDandruff in adultICD-10: L21.0 ICD-9: 690.18109803NrqzrhIsgkocmpNojhucz85/28/2020ActiveDiabetes mellitus Type 2Hfxnlod63/28/2020ActiveAnemia due to stage 3b chronic kidney diseaseICD- 10: N18.32 ICD-9: 285.2109ActiveChronic kidney disease, stage 3 unspecifiedICD-10: N18.30002/12/2020ActiveContact with and (suspected) exposure to other viral communicable diseasesICD-10: Z20.828 ICD-9: V01.7909ActiveCoronary artery disease involving [place] coronary artery of [place] heart, angina presence unspecifiedICD-10: I25.10 ICD-9: 414.01002/12/2020ActiveDepressionICD-10: F32.9 ICD-9: 39119ActiveGout due to renal impairmentICD-10: M10.30 ICD-9: 274.1009ActiveHyperlipidemia [...] Start Date Stop Date Status Fill Instructions ketoconazole 2 % shampoo RxNorm: 725323 Apply Topical two times a week with showers 0 021 Inactive cholecalciferol (vitamin D3) 50 mcg (2,000 unit) tablet RxNorm: 249216 Take 1 Tablet(s) Oral QD 0 021 Inactive Zetia 10 mg tablet RxNorm: 261485 Take 1 Tablet(s) Oral QD 0 021 Inactive Zetia 10 mg tablet RxNorm: 086031 Take 1 Tablet(s) Oral QD 0 020 Inactive Lyrica 50 mg capsule RxNorm: 197893 Take 1 Capsule(s) Oral QAM every morning 0 Inactive Lyrica 100 mg capsule RxNorm: 617293 Take 1 Capsule(s) Oral QHS every night at bedtime 0 Inactive Lyrica 100 mg capsule RxNorm: 735835 Take 1 Capsule(s) Oral QHS every night at bedtime 0 Inactive Lyrica 50 mg capsule RxNorm: 550840 Take 1 Capsule(s) Oral QAM every morning 0 Inactive Medication Administered No Medication Administered data Immunizations Vaccine Codes Dose Date Status Influenza CVX: 141 02/13/2019 Hepatitis B CVX: 43 02/16/2014 Hepatitis B CVX: 43 10/12/2013 Hepatitis B CVX: 43 03/14/2013 Tdap CVX: 115 05/07/2009 Tetanus, Diptheria, Pertussis CVX: 115 2008 Procedures Procedure Codes Date SYS BP > OR = 140 CPT-4: G8753 03/11/2020 CUI BP LESS 90 CPT-4: G8754 03/11/2020 Vital Signs Date Vital 03/11/2020 Blood Pressure 1: 140/75 Code: 8480-6 Heart Rate 1: 72 bpm Code: 8867-4 SpO2: 96% Temperature: 36.3 (C) / 97.3 (F) Reason For Visit No Reason For Visit data Encounters Encounter Performer Location Location Address Codes Cristiano e ([id number]) DOMICIL/R-HOME VISIT EST PAT Diagnosis: Anemia due to stage 3b chronic kidney disease[ICD10: N18.32] Diagnosis: Anemia due to stage 3b chronic kidney disease[ICD10: N18.32] Diagnosis: CKD stage 3 due to type 2 diabetes mellitus[ICD10: E11.22] Diagnosis: Anemia due to stage 3b chronic kidney disease[ICD10: N18.32] Diagnosis: Type 2 diabetes mellitus with diabetic polyneuropathy, with long-term current use of insulin[ICD10: E11.42] Diagnosis: Hyperlipidemia associated with type 2 diabetes mellitus[ICD10: E11.69] Diagnosis: Vitamin D deficiency[ICD10: E55.9] Diagnosis: Seizure disorder[ICD10: G40.909] Diagnosis: Dandruff in adult[ICD10: L21.0]Sandra [place] [address] [place] [address]QYN-7: [id number] Plan of Care Planned Activity Notes Codes Status Date Referral: [facility] WPtel: [address], [address] [id number] USReferralRecords Sphtnwuw95/08/2023Referral: [facility] WPtel: [address] [id number] ASNbqafhvbLrqpnihkj93/12/2022Referral: General CardiologyReferralCompleted 1Patient Education: Patient Medication InerignGhvrfbtid27/26/2020 Patient Education: Influenza SrodzevYjdegatce41/26/2020Referral: General PsychologistReferralClosed Instructions Comment Date Leonid is a Male being seen living at The [facility]. Initial BPS visit 01/2020. PMHx including DMII, CAD w/ 5 stents, Depression, Seizure Disorder and CKD stage 3. He moved into [facility] in 12/2019 but after a hospitalization 05/2021 he moved to the [facility] to have closer nursing attention. Sister Jyotsna involved in his care cell# [phone] Guardian: Don (tapan met in person 09/01/21), now has Lexii (same group as don)Lab Schedule: * 10/06/2022 Epilepsy No seizure activity reported this month. No concerns voiced today. Continue current treatment regimen and monitor. Diabetes GFR improved per records. Continue to monitor Q6m.?? Continue Iron supplement Continue insulin changes per Investor.?? Continue Zetia along with Pravastatin.?? Chronic Kidney Disease Continue Ferrous Sulfate Dermatitis Starting Ketoconazole Shampoo Vitamin D Deficiency Increasing Vit D level. .03/11/2020
--- OUTSIDE RECORDS SUMMARY | 2020-03-12 18:00 | XMS_ITS | CCD ---
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 Bank Worker Name Role Phone Rosalina Shirley PA-C Primary Care Provider Unavailabl e Rosalina Shirley PA-C Chronic Care Management Unavaila ble Summary Purpose DataExchange Insurance Providers Payer name Policy type / Coverage type Covered libertarian ID Effective Begin Date Effective End Date Medicare [place] Medicare Part B [id number] Unknown Unknown Medicaid [place] Medicare Part B [id number] Unknown Unknown Family History Family History data not found Allergies, Adverse Reactions, Alerts Substance Reaction Codes Entered Date Inactivated Date Status LISINOPRIL RxNorm: 2870818No Inactive DateActiveMetformin RDsKzfyhun91/28/2020No Inactive DateActive Problems Condition Codes Effective Dates Condition St atus CKD stage 3 due to type 2 diabetes [place] ICD-10: E11.22 ICD-9: 250.4010ActiveDandruff in adultICD-10: L21.0 ICD-9: 690.18102427EvpaovHnowapimTyuwdzw60/28/2020ActiveDiabetes mellitus Type 3Opzwogi80/28/2020ActiveAnemia due to stage 3b chronic kidney diseaseICD- 10: N18.32 ICD-9: 285.2109ActiveChronic kidney disease, stage 3 unspecifiedICD-10: N18.30002/12/2020ActiveContact with and (suspected) exposure to other viral communicable diseasesICD-10: Z20.828 ICD-9: V01.7909ActiveCoronary artery disease involving [place] coronary artery of [place] heart, angina presence unspecifiedICD-10: I25.10 ICD-9: 414.0109ActiveDepressionICD-10: F32.9 ICD-9: 36443ActiveGout due to renal impairmentICD-10: M10.30 ICD-9: 274.1009ActiveHyperlipidemia associated with type 2 diabetes mellitusICD-10: E11.69 ICD-9: 250.8009ActiveLearning disabilityICD-10: F81.9 ICD-9: 315.209ActiveLong term (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 insulinICD-10: Z79.4 02/12/2020ActiveLower extremity edemaICD-10: R60.0 ICD-9: 782.309ActiveSecondary hypertensionICD-10: I15.9 ICD-9: 405.9909ActiveSeizure disorderICD-10: G40.909 ICD-9: 345.90002/12/2020ActiveType 2 diabetes mellitus with diabetic polyneuropathy, with long-term current use of insulinICD-10: E11.42 ICD-9: 250.6009ActiveVitamin D deficiencyICD-10: E55.9 ICD-9: 268.9002/12/2020ActiveAnemia in chronic kidney diseaseICD-10: D63.1 02/12/2020ResolvedHyperlipidemia, unspecifiedICD-10: E78.509Resolved Medications Medication Codes Instructions Start Date Stop Date Status Fill Instructions Lyrica 100 mg capsule RxNorm: 456104 Take 1 Capsule(s) Oral QHS every night at bedtime 0 Inactive Lyrica 50 mg capsule RxNorm: 053946 Take 1 Capsule(s) Oral QAM every morning 0 Inactive ketoconazole 2 % shampoo RxNorm: 931433 Apply Topical two times a week with showers 0 Inactive cholecalciferol (vitamin D3) 50 mcg (2,000 unit) tablet RxNorm: 267265 Take 1 Tablet(s) Oral QD 0 021 Inactive Zetia 10 mg tablet RxNorm: 649568 Take 1 Tablet(s) Oral QD 0 021 Inactive Zetia 10 mg tablet RxNorm: 746476 Take 1 Tablet(s) Oral QD 0 10/22/2 020 Inactive Lyrica 50 mg capsule RxNorm: 221893 Take 1 Capsule(s) Oral QAM every morning 0 Inactive Lyrica 100 mg capsule RxNorm: 569721 Take 1 Capsule(s) Oral QHS every night at bedtime 0 Inactive Lyrica 100 mg capsule RxNorm: 348648 Take 1 Capsule(s) Oral QHS every night at bedtime 0 Inactive Lyrica 50 mg capsule RxNorm: 421596 Take 1 Capsule(s) Oral QAM every morning [...] Codes Status Date Referral: [facility] WPtel: [address], [address] [id number] USReferralRecords Nhqzedde17/08/2023Referral: [facility] WPtel: [address] [id number] MJDgngtaakOtodobhtb30/12/2022Referral: General CardiologyReferralCompleted 1Referral: General PsychologistReferralClosed Instructions Comment Date Leonid is a Male being seen living at The [facility]. Initial BPS visit 01/2020. PMHx including DMII, CAD w/ 5 stents, Depression, Seizure Disorder and CKD stage 3. He moved into [facility] in 12/2019 but after a hospitalization 05/2021 he moved to the [facility] to have closer nursing attention. Sister Jyotsna involved in his care cell# [phone] Guardian: Don middleton met in person 09/01/21), now has Lexii (same group as don)Lab Schedule: * 10/06/2022
--- OUTSIDE RECORDS SUMMARY | 2020-04-08 18:00 | XMS_ITS | CCD ---
Author Name Sandra Mandujano CNP Address [address] [place] [address] Phone Organization [facility] Phone Care Team Providers Care Smoked Meat Preparer Name Role Phone Tapan Shirley PA-C Primary Care Provider Unavailabl e Tapan Shirley PA-C Chronic Care Management Unavaila ble Summary Purpose DataExchange Insurance Providers Payer name Policy type / Coverage type Covered libertarian ID Effective Begin Date Effective End Date Medicare [place] Medicare Part B [id number] Unknown Unknown Medicaid [place] Medicare Part B [id number] Unknown Unknown Family History Family History data not found Allergies, Adverse Reactions, Alerts Substance Reaction Codes Entered Date Inactivated Date Status LISINOPRIL RxNorm: 4477557No Inactive DateActiveMetformin TKpLfxsqte94/28/2020No Inactive DateActive Problems Condition Codes Effective Dates Condition St atus Candidiasis, intertrigo ICD-10: B37.2 ICD-9: 112.311ActiveHyperhidrosis of palmsICD-10: L74.512 ICD-9: 705.ActiveCKD stage 3 due to type 2 diabetes mellitusICD-10: E11.22 ICD-9: 250.4010ActiveDandruff in adultICD-10: L21.0 ICD-9: 690.18106012TqczrcRnyhfxxyNazwpha33/28/2020ActiveDiabetes mellitus Type 1Mburbfw88/28/2020ActiveAnemia due to stage 3b chronic kidney diseaseICD- 10: N18.32 ICD-9: 285.ActiveChronic kidney disease, stage 3 unspecifiedICD-10: N18.30002/12/2020ActiveContact with and (suspected) exposure to other viral communicable diseasesICD-10: Z20.828 ICD-9: V01.7909ActiveCoronary artery disease involving [place] coronary artery of [place] heart, angina presence unspecifiedICD-10: I25.10 ICD-9: 414.0109ActiveDepressionICD-10: F32.9 ICD-9: 14700ActiveGout due to renal impairmentICD-10: M10.30 ICD-9: 274.1009ActiveHyperlipidemia [...] Start Date Stop Date Status Fill Instructions Nystop 100,000 unit/gram topical powder RxNorm: 180883 Apply to abd folds, under breasts and L side of groin Topical BID x 14 days, then BID PRN 0 021 Inactive dx: yeast dermatitis Lyrica 100 mg capsule RxNorm: 136675 Take 1 Capsule(s) Oral QHS every night at bedtime 0 020 Inactive Lyrica 50 mg capsule RxNorm: 839194 Take 1 Capsule(s) Oral QAM every morning 0 Inactive ketoconazole 2 % shampoo RxNorm: 153155 Apply Topical two times a week with showers 0 Inactive cholecalciferol (vitamin D3) 50 mcg (2,000 unit) tablet RxNorm: 497725 Take 1 Tablet(s) Oral QD 0 Inactive Zetia 10 mg tablet RxNorm: 375832 Take 1 Tablet(s) Oral QD 0 Inactive Zetia 10 mg tablet RxNorm: 134646 Take 1 Tablet(s) Oral QD 0 Inactive Lyrica 50 mg capsule RxNorm: 961321 Take 1 Capsule(s) Oral QAM every morning 0 Inactive Lyrica 100 mg capsule RxNorm: 218175 Take 1 Capsule(s) Oral QHS every night at bedtime 0 Inactive Lyrica 100 mg capsule RxNorm: 128850 Take 1 Capsule(s) Oral QHS every night at bedtime 0 Inactive Lyrica 50 mg capsule RxNorm: 638995 Take 1 Capsule(s) Oral QAM every morning [...] Performer Location Location Address Codes Cristiano e ([id number]) DOMICIL/R-HOME VISIT EST PAT Diagnosis: Type 2 diabetes mellitus with diabetic polyneuropathy, with long-term current use of insulin[ICD10: E11.42] Diagnosis: 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] Diagnosis: Candidiasis, intertrigo[ICD10: B37.2] Diagnosis: Seizure disorder[ICD10: G40.909]S[facility]anoL[facility] [place], [place] [address]BNK-1: [id number] Plan of Care Planned Activity Notes Codes Status Date Referral: [facility] WPtel: [address], [address] [id number] USReferralRecords Jhwnuevi77/08/2023Referral: [facility] WPtel: [address] [id number] SHTefgrshmScwzhltwo84/12/2022Referral: General CardiologyReferralCompleted 1Patient Education: Patient Medication HohjjkfEuafzvnjn38/23/2020 Patient Education: Influenza IltiqixIswvtowyl65/23/2020Referral: General PsychologistReferralClosed Instructions Comment Date Leonid is a Male being seen living at The [facility]. Initial BPS visit 01/2020. PMHx including DMII, CAD w/ 5 stents, Depression, Seizure Disorder and CKD stage 3. He moved into [facility] in 12/2019 but after a hospitalization 05/2021 he moved to the [facility] to have closer nursing attention. Sister Jyotsna involved in his care cell# [phone] Guardian: Don (tapan met in person 09/01/21), now has Lexii (same group as don)Lab Schedule: * 10/06/2022 Hyperhidrosis of palms Ordering Carpe. Otherwise patient to purchase out of pocket. Can try general antiperspirant.?? Candidiasis, intertrigo Starting Nystatin.?? Epilepsy No seizure activity reported this month. No concerns voiced today. Continue current treatment regimen and monitor. Diabetes Continue insulin orders from End[facility] have been better.?? .04/08/2020
--- OUTSIDE RECORDS SUMMARY | 2020-04-23 18:00 | XMS_ITS | CCD ---
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 Statement Clerks Manager Name Role Phone Tapan Shirley PA-C Primary Care Provider Unavailabl e Tapan Shirley PA-C Chronic Care Management Unavaila ble Summary Purpose DataExchange Insurance Providers Payer name Policy type / Coverage type Covered libertarian ID Effective Begin Date Effective End Date Medicare [place] Medicare Part B [id number] Unknown Unknown Medicaid [place] Medicare Part B [id number] Unknown Unknown Family History Family History data not found Allergies, Adverse Reactions, Alerts Substance Reaction Codes Entered Date Inactivated Date Status LISINOPRIL RxNorm: 7352922No Inactive DateActiveMetformin OCjJmrflml20No Inactive DateActive Problems Condition Codes Effective Dates Condition St atus Candidiasis, intertrigo ICD-10: B37.2 ICD-9: 112.311ActiveHyperhidrosis of palmsICD-10: L74.512 ICD-9: 705.ActiveCKD stage 3 due to type 2 diabetes mellitusICD-10: E11.22 ICD-9: 250.4010ActiveDandruff in adultICD-10: L21.0 ICD-9: 690.18105431ObeihvZjxxfzneBgjpefk35/28/2020ActiveDiabetes mellitus Type 5Cturcrz19/28/2020ActiveAnemia due to stage 3b chronic kidney diseaseICD- 10: N18.32 ICD-9: 285.2109ActiveChronic kidney disease, stage 3 unspecifiedICD-10: N18.3009ActiveContact with and (suspected) exposure to other viral communicable diseasesICD-10: Z20.828 ICD-9: V01.7909ActiveCoronary artery disease involving [place] coronary artery of [place] heart, angina presence unspecifiedICD-10: I25.10 ICD-9: 414.0109ActiveDepressionICD-10: F32.9 ICD-9: 08438ActiveGout due to renal impairmentICD-10: M10.30 ICD-9: 274.1009ActiveHyperlipidemia associated with type 2 diabetes mellitusICD-10: E11.69 ICD-9: 250.8009ActiveLearning disabilityICD-10: F81.9 ICD-9: 315.209ActiveLong term (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 insulinICD-10: Z79.4 02/12/2020ActiveLower extremity edemaICD-10: R60.0 ICD-9: 782.309ActiveSecondary hypertensionICD-10: I15.9 ICD-9: 405.9902/12/2020ActiveSeizure disorderICD-10: G40.909 ICD-9: 345.90002/12/2020ActiveType 2 diabetes mellitus with diabetic polyneuropathy, with long-term current use of insulinICD-10: E11.42 ICD-9: 250.6009ActiveVitamin D deficiencyICD-10: E55.9 ICD-9: 268.909ActiveAnemia in chronic kidney diseaseICD-10: D63.1 02/12/2020ResolvedHyperlipidemia, unspecifiedICD-10: E78.509Resolved Medications Medication Codes Instructions Start Date Stop Date Status Fill Instructions Lancets,Thin 28 gauge RxNorm: Use 1 as directed QID and PRN 0 Inactive Blood Glucose Monitoring kit RxNorm: Use as directed QID and PRN 0 021 Inactive Blood Glucose Test strips RxNorm: Use 1 Test Strip QID at PRN 0 021 Inactive Blood Glucose Test strips RxNorm: Use 1 Test Strip QID at PRN 0 020 Inactive Lancets,Thin 28 gauge RxNorm: Use 1 as directed QID and PRN 0 020 Inactive Blood Glucose Monitoring kit RxNorm: Use as directed QID and PRN 0 020 Inactive Nystop 100,000 unit/gram topical powder RxNorm: 728742 Apply to abd folds, under breasts and L side of groin Topical BID x 14 days, then BID PRN 0 021 Inactive dx: yeast dermatitis Lyrica 100 mg capsule RxNorm: 593744 Take 1 Capsule(s) Oral QHS every night at bedtime 0 Inactive Lyrica 50 mg capsule RxNorm: 642306 Take 1 Capsule(s) Oral QAM every morning 0 Inactive ketoconazole 2 % shampoo RxNorm: 796721 Apply Topical two times a week with showers 0 021 Inactive cholecalciferol (vitamin D3) 50 mcg (2,000 unit) tablet RxNorm: 345746 Take 1 Tablet(s) Oral QD 0 021 Inactive Zetia 10 mg tablet RxNorm: 629632 Take 1 Tablet(s) Oral QD 0 021 Inactive Zetia 10 mg tablet RxNorm: 522915 Take 1 Tablet(s) Oral QD 0 020 Inactive Lyrica 50 mg capsule RxNorm: 124031 Take 1 Capsule(s) Oral QAM every morning 0 Inactive Lyrica 100 mg capsule RxNorm: 959585 Take 1 Capsule(s) Oral QHS every night at bedtime 0 020 Inactive Lyrica 100 mg capsule RxNorm: 645184 Take 1 Capsule(s) Oral QHS every night at bedtime 0 020 Inactive Lyrica 50 mg capsule RxNorm: 706347 Take 1 Capsule(s) Oral QAM every morning [...] Codes Status Date Referral: [facility] WPtel: [address], [address] [id number] USReferralRecords Ecrvosyb96/08/2023Referral: [facility] WPtel: [address] [id number] OZWbdzeadzGrmefmpfz12/12/2022Referral: General CardiologyReferralCompleted 1Referral: General PsychologistReferralClosed Instructions Comment Date Leonid is a Male being seen living at The [facility]. Initial BPS visit 01/2020. PMHx including DMII, CAD w/ 5 stents, Depression, Seizure Disorder and CKD stage 3. He moved into [facility] in 12/2019 but after a hospitalization 05/2021 he moved to the [facility] to have closer nursing attention. Sister Jyotsna involved in his care cell# [phone] Guardian: Don (tapan met in person 09/01/21), now has Lexii (same group as don)Lab Schedule: * 10/06/2022
--- OUTSIDE RECORDS SUMMARY | 2020-05-13 18:00 | XMS_ITS | CCD ---
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 Marine Engineer Name Role Phone Tapan Shirley PA-C Primary Care Provider Unavailabl e Tapan Shirley PA-C Chronic Care Management Unavaila ble Summary Purpose DataExchange Insurance Providers Payer name Policy type / Coverage type Covered constitution party ID Effective Begin Date Effective End Date Medicare [place] Medicare Part B [id number] Unknown Unknown Medicaid [place] Medicare Part B [id number] Unknown Unknown Family History Family History data not found Allergies, Adverse Reactions, Alerts Substance Reaction Codes Entered Date Inactivated Date Status LISINOPRIL RxNorm: 2121696No Inactive DateActiveMetformin [id number] Inactive DateActive Problems Condition Codes Effective Dates Condition St atus Candidiasis, intertrigo ICD-10: B37.2 ICD-9: 112.311ActiveHyperhidrosis of palmsICD-10: L74.512 ICD-9: 705.ActiveCKD stage 3 due to type 2 diabetes mellitusICD-10: E11.22 ICD-9: 250.4010ActiveDandruff in adultICD-10: L21.0 ICD-9: 690.18102503RrzqqtGiuhdigwQnfzwyo76/28/2020ActiveDiabetes mellitus Type 6Aorjnaz26/28/2020ActiveAnemia due to stage 3b chronic kidney diseaseICD- 10: N18.32 ICD-9: 285.2109ActiveChronic kidney disease, stage 3 unspecifiedICD-10: N18.3009ActiveContact with and (suspected) exposure to other viral communicable diseasesICD-10: Z20.828 ICD-9: V01.7909ActiveCoronary artery disease involving [place] coronary artery of [place] heart, angina presence unspecifiedICD-10: I25.10 ICD-9: 414.0109ActiveDepressionICD-10: F32.9 ICD-9: 40711ActiveGout due to renal impairmentICD-10: M10.30 ICD-9: 274.10002/12/2020ActiveHyperlipidemia associated with type 2 diabetes mellitusICD-10: E11.69 [...] Fill Instructions Lyrica 50 mg capsule RxNorm: 447007 Take 1 Capsule(s) Oral QAM every morning 0 020 Inactive Lyrica 100 mg capsule RxNorm: 914571 Take 1 Capsule(s) Oral QHS every night at bedtime 0 Inactive Blood Glucose Monitoring kit RxNorm: Use as directed QID and PRN 0 021 Inactive Blood Glucose Test strips RxNorm: Use 1 Test Strip QID at PRN 0 021 Inactive Lancets,Thin 28 gauge RxNorm: Use 1 as directed QID and PRN 0 020 Inactive Blood Glucose Test strips RxNorm: Use 1 Test Strip QID at PRN 0 Inactive Lancets,Thin 28 gauge RxNorm: Use 1 as directed QID and PRN 0 Inactive Blood Glucose Monitoring kit RxNorm: Use as directed QID and PRN 0 Inactive Nystop 100,000 unit/gram topical powder RxNorm: 962043 Apply to abd folds, under breasts and L side of groin Topical BID x 14 days, then BID PRN 0 021 Inactive dx: yeast dermatitis Lyrica 100 mg capsule RxNorm: 395425 Take 1 Capsule(s) Oral QHS every night at bedtime 0 Inactive Lyrica 50 mg capsule RxNorm: 096874 Take 1 Capsule(s) Oral QAM every morning 0 Inactive ketoconazole 2 % shampoo RxNorm: 562433 Apply Topical two times a week with showers 0 Inactive cholecalciferol (vitamin D3) 50 mcg (2,000 unit) tablet RxNorm: 361893 Take 1 Tablet(s) Oral QD 0 Inactive Zetia 10 mg tablet RxNorm: 306092 Take 1 Tablet(s) Oral QD 0 021 Inactive Zetia 10 mg tablet RxNorm: 483046 Take 1 Tablet(s) Oral QD 0 Inactive Lyrica 50 mg capsule RxNorm: 926299 Take 1 Capsule(s) Oral QAM every morning 0 Inactive Lyrica 100 mg capsule RxNorm: 039914 Take 1 Capsule(s) Oral QHS every night at bedtime 0 Inactive Lyrica 100 mg capsule RxNorm: 471404 Take 1 Capsule(s) Oral QHS every night at bedtime 0 Inactive Lyrica 50 mg capsule RxNorm: 195672 Take 1 Capsule(s) Oral QAM every morning 0 020 Inactive Medication Administered No Medication Administered data Immunizations Vaccine Codes Dose Date Status Influenza CVX: 141 05/07/2020 Influenza CVX: 141 02/13/2019 Hepatitis B CVX: 43 02/16/2014 Hepatitis B CVX: 43 10/12/2013 Hepatitis B CVX: 43 03/14/2013 Tdap CVX: 115 05/07/2009 Tetanus, Diptheria, Pertussis CVX: 115 2008 Reason For Visit No Reason For Visit data Plan of Care Planned Activity Notes Codes Status Date Referral: [facility] WPtel: [address] , [address] [id number] [place]ReferralRecords Oydovunq37/08/2023Referral: [facility] WPtel: [address] [id number] QMFjdwvyspPczxzfirp01/12/2022Referral: General CardiologyReferralCompleted 1Referral: General PsychologistReferralClosed Instructions Comment Date Leonid is a Male being seen living at [facility]. Initial BPS visit 01/2020. PMHx including DMII, CAD w/ 5 stents, Depression, Seizure Disorder and CKD stage 3. He moved into [facility] in 12/2019 but after a hospitalization 05/2021 he moved to the [facility] to have closer nursing attention. Sister Jyotsna involved in his care cell# [phone] Guardian: Don (tapan met in person 09/01/21), now has Lexii (same group as don)Lab Schedule: * 10/06/2022
--- OUTSIDE RECORDS SUMMARY | 2020-05-19 18:00 | XMS_ITS | CCD ---
Author Name Sandra Mandujano CNP Address [address] [place] [address] Phone Organization [facility] Phone Care Team Providers Care Manager Consumer Name Role Phone Rosalina Shirley PA-C Primary Care Provider Unavailabl e Rosalina Shirley PA-C Chronic Care Management Unavaila ble Summary Purpose DataExchange Insurance Providers Payer name Policy type / Coverage type Covered libertarian ID Effective Begin Date Effective End Date Medicare [place] Medicare Part B [id number] Unknown Unknown Medicaid [place] Medicare Part B [id number] Unknown Unknown Family History Family History data not found Allergies, Adverse Reactions, Alerts Substance Reaction Codes Entered Date Inactivated Date Status LISINOPRIL RxNorm: 6557099No Inactive DateActiveMetformin QQgGpucemk91/28/2020No Inactive DateActive Problems Condition Codes Effective Dates Condition St atus Candidiasis, intertrigo ICD-10: B37.2 ICD-9: 112.ActiveCKD stage 3 due to type 2 diabetes mellitusICD-10: E11.22 ICD-9: 250.401ActiveHyperhidrosis of palmsICD-10: L74.512 ICD-9: 705.211ActiveHyperlipidemia associated with type 2 diabetes mellitusICD-10: E11.69 ICD-9: 250.8012ActiveLong term (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 insulinICD-10: Z79.4 05/15/2020ActiveLower extremity edemaICD-10: R60.0 ICD-9: 782.ActiveType 2 diabetes mellitus with diabetic polyneuropathy, with long-term current use of insulinICD-10: E11.42 ICD-9: 250.6012ActiveDandruff in adultICD-10: L21.0 ICD-9: 690.18103952ZtqbvyQqkxwmklUwonqlu36/28/2020ActiveDiabetes mellitus Type 5Cupbxyf64/28/2020ActiveAnemia due to stage 3b chronic kidney diseaseICD- 10: N18.32 ICD-9: 285.21002/12/2020ActiveChronic kidney disease, stage 3 unspecifiedICD-10: N18.30002/12/2020ActiveContact with and (suspected) exposure to other viral communicable diseasesICD-10: Z20.828 ICD-9: V01.7902/12/2020ActiveCoronary artery disease involving [place] coronary artery of [place] heart, angina presence unspecifiedICD-10: I25.10 ICD-9: 414.01002/12/2020ActiveDepressionICD-10: F32.9 ICD-9: 17203ActiveGout due to renal impairmentICD-10: M10.30 ICD-9: 274.1009ActiveLearning disabilityICD-10: F81.9 ICD-9: 315.ActiveSecondary hypertensionICD-10: I15.9 ICD-9: 405.9909ActiveSeizure disorderICD-10: G40.909 ICD-9: 345.90002/12/2020ActiveVitamin D deficiencyICD-10: E55.9 ICD-9: 268.909ActiveAnemia in chronic kidney diseaseICD-10: D63.1 02/12/2020ResolvedHyperlipidemia, unspecifiedICD-10: E78.509Resolved Medications Medication Codes Instructions Start Date Stop Date Status Fill Instructions hydrocortisone 2.5 % topical cream RxNorm: 684313 Apply to bilateral groin creases Topical BID 0 021 Inactive clotrimazole 1 % topical cream RxNorm: 568035 Apply to bilateral groin areas Topical BID 0 021 Inactive Lyrica 50 mg capsule RxNorm: 857106 Take 1 Capsule(s) Oral QAM every morning 0 020 Inactive Lyrica 100 mg capsule RxNorm: 514790 Take 1 Capsule(s) Oral QHS every night [...] Inactive Nystop 100,000 unit/gram topical powder RxNorm: 091131 Apply to abd folds, under breasts and L side of groin Topical BID x 14 days, then BID PRN 0 021 Inactive dx: yeast dermatitis Lyrica 100 mg capsule RxNorm: 833479 Take 1 Capsule(s) Oral QHS every night at bedtime 0 Inactive Lyrica 50 mg capsule RxNorm: 266619 Take 1 Capsule(s) Oral QAM every morning 0 Inactive ketoconazole 2 % shampoo RxNorm: 681874 Apply Topical two times a week with showers 0 021 Inactive cholecalciferol (vitamin D3) 50 mcg (2,000 unit) tablet RxNorm: 967757 Take 1 Tablet(s) Oral QD 0 021 Inactive Zetia 10 mg tablet RxNorm: 726770 Take 1 Tablet(s) Oral QD 0 021 Inactive Zetia 10 mg tablet RxNorm: 610983 Take 1 Tablet(s) Oral QD 0 020 Inactive Lyrica 50 mg capsule RxNorm: 455928 Take 1 Capsule(s) Oral QAM every morning 0 Inactive Lyrica 100 mg capsule RxNorm: 591767 Take 1 Capsule(s) Oral QHS every night at bedtime 0 020 Inactive Lyrica 100 mg capsule RxNorm: 098069 Take 1 Capsule(s) Oral QHS every night at bedtime 0 Inactive Lyrica 50 mg capsule RxNorm: 174976 Take 1 Capsule(s) Oral QAM every morning 0 Inactive Medication Administered No Medication Administered data Immunizations Vaccine Codes Dose Date Status Influenza CVX: 141 05/07/2020 Influenza CVX: 141 02/13/2019 Hepatitis B CVX: 43 02/16/2014 Hepatitis B CVX: 43 10/12/2013 Hepatitis B CVX: 43 03/14/2013 Tdap CVX: 115 05/07/2009 Tetanus, Diptheria, Pertussis CVX: 115 2008 Procedures Procedure Codes Date SYS BP LESS 140 CPT-4: G8752 05/15/2020 CUI BP LESS 90 CPT-4: G8754 05/15/2020 Vital Signs Date Vital 05/15/2020 Blood Pressure 1: 116/61 Code: 8480-6 Heart Rate 1: 72 bpm Code: 8867-4 Respiratory Rate: 12 bpm SpO2: 95% Temperature: 36.6 (C) / 97.8 (F) Reason For Visit No Reason For Visit data Encounters Encounter Performer Location Location Address Codes Cristiano e ([id number]) DOMICIL/R-HOME VISIT EST PAT Diagnosis: Candidiasis, intertrigo[ICD10: B37.2] Diagnosis: Type 2 diabetes mellitus with diabetic polyneuropathy, with long-term current use of insulin[ICD10: E11.42] Diagnosis: CKD stage 3 due to type 2 diabetes mellitus[ICD10: E11.22] Diagnosis: Hyperlipidemia associated with type 2 diabetes mellitus[ICD10: E11.69] Diagnosis: 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] Diagnosis: [facility] (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 insulin[ICD10: Z79.4] Diagnosis: Lower extremity edema[ICD10: R60.0]Sandra Plasencia [place] [address] [place], [place] [address]YAD-5: [id number] Plan of Care Planned Activity Notes Codes Status Date Referral: [facility] WPtel: [address] [id number] [place]ReferralRecords Rlragdip01/08/2023Referral: [facility] WPtel: [address] [id number]/12/2022Referral: General CardiologyReferralCompleted 1Patient Education: Patient Medication YbwgvpoDcpqoopag18/30/2020 Patient Education: Influenza RelhfgqSlhbxwgqj45/30/2020Referral: General PsychologistReferralClosed Instructions Comment Date Leonid is a Male being seen living at [facility]. Initial BPS visit 01/2020. PMHx including DMII, CAD w/ 5 stents, Depression, Seizure Disorder and CKD stage 3. He moved into [facility] in 12/2019 but after a hospitalization 05/2021 he moved to the [facility] to have closer nursing attention. Sister Jyotsna involved in his care cell# [phone] Guardian: Don (rosalina met in person 09/01/21), now has Lexii (same group as don)Lab Schedule: * 10/06/2022 Candidiasis, intertrigo Current treatment working well.?? Edema Elevated feet, have good water intake.?? Diabetes Checking Cholesterol level to follow up after addition of Zetia.?? Hyperhidrosis of palms Recommend use of Carpe; needs to purchase OOP.?? [facility] (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 insulin Continue to follow Dr. Hurd' orders.?? .05/15/2020
--- OUTSIDE RECORDS SUMMARY | 2020-06-10 18:00 | XMS_ITS | CCD ---
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 Production Control Coordinator Name Role Phone Tapan Shirley PA-C Primary Care Provider Unavailabl e Tapan Shirley PA-C Chronic Care Management Unavaila ble Summary Purpose DataExchange Insurance Providers Payer name Policy type / Coverage type Covered green party ID Effective Begin Date Effective End Date Medicare ID Medicare Part B [id number] Unknown Unknown Medicaid ID Medicare Part B [id number] Unknown Unknown Family History Family History data not found Allergies, Adverse Reactions, Alerts Substance Reaction Codes Entered Date Inactivated Date Status LISINOPRIL RxNorm: 549307702/12/2020No Inactive DateActiveMetformin DHpNokglrg35/28/2020No Inactive DateActive Problems Condition Codes Effective Dates Condition St atus Candidiasis, intertrigo ICD-10: B37.2 ICD-9: 112.301ctiveCKD stage 3 due to type 2 diabetes mellitusICD-10: E11.22 ICD-9: 250.40006/10/2020ctiveGout due to renal impairmentICD-10: M10.30 ICD-9: 274.10006/10/2020ctiveHyperlipidemia associated with type 2 diabetes mellitusICD-10: E11.69 ICD-9: 250.8001ctiveLearning disabilityICD-10: F81.9 ICD-9: 315.201ctiveType 2 diabetes mellitus with diabetic polyneuropathy, with long-term current use of insulinICD-10: E11.42 ICD-9: 250.6001ctiveContact with and (suspected) exposure to other viral communicable diseasesICD-10: Z20.828 ICD-9: V01.7901ctiveHyperhidrosis of palmsICD-10: L74.512 ICD-9: 705.ActiveLong term (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 insulinICD-10: Z79.4 05/15/2020ActiveLower extremity edemaICD-10: R60.0 ICD-9: 782.312ActiveDandruff in adultICD-10: L21.0 ICD-9: 690.18105317VlywyqXvihkyyiGnpekrl33/28/2020ActiveDiabetes mellitus Type 4Znsuyhg65/28/2020ActiveAnemia due to stage 3b chronic kidney diseaseICD- 10: N18.32 ICD-9: 285.2109ActiveChronic kidney disease, stage 3 unspecifiedICD-10: N18.30002/12/2020ActiveCoronary artery disease involving makah coronary artery of makah heart, angina presence unspecifiedICD-10: I25.10 ICD-9: 414.01002/12/2020ActiveDepressionICD-10: F32.9 ICD-9: 14738ActiveSecondary hypertensionICD-10: I15.9 ICD-9: 405.9909ActiveSeizure disorderICD-10: G40.909 ICD-9: 345.9009ActiveVitamin D deficiencyICD-10: E55.9 ICD-9: 268.909ActiveAnemia in chronic kidney diseaseICD-10: D63.1 02/12/2020ResolvedHyperlipidemia, unspecifiedICD-10: E78.509Resolved Medications Medication Codes Instructions Start Date Stop Date Status Fill Instructions Lyrica 100 mg capsule RxNorm: 077589 Take 1 Capsule(s) Oral QHS every night at bedtime 1 021 Inactive Lyrica 50 mg capsule RxNorm: 868305 Take 1 Capsule(s) Oral QAM every morning 1 021 Inactive hydrocortisone 2.5 % topical cream RxNorm: 477205 Apply to bilateral groin creases Topical BID 0 021 Inactive clotrimazole 1 % topical cream RxNorm: 978028 Apply to bilateral groin areas Topical BID 0 021 Inactive Lyrica 50 mg capsule RxNorm: 828468 Take 1 Capsule(s) Oral QAM every morning 0 Inactive Lyrica 100 mg capsule RxNorm: 937539 Take 1 Capsule(s) Oral QHS every night at bedtime 0 Inactive Blood Glucose Monitoring kit RxNorm: Use as directed QID and PRN 0 Inactive Lancets,Thin 28 gauge RxNorm: [...] Inactive Nystop 100,000 unit/gram topical powder RxNorm: 815105 Apply to abd folds, under breasts and L side of groin Topical BID x 14 days, then BID PRN 0 021 Inactive dx: yeast dermatitis Lyrica 100 mg capsule RxNorm: 739605 Take 1 Capsule(s) Oral QHS every night at bedtime 0 Inactive Lyrica 50 mg capsule RxNorm: 490468 Take 1 Capsule(s) Oral QAM every morning 0 Inactive ketoconazole 2 % shampoo RxNorm: 400583 Apply Topical two times a week with showers 0 Inactive cholecalciferol (vitamin D3) 50 mcg (2,000 unit) tablet RxNorm: 221315 Take 1 Tablet(s) Oral QD 0 021 Inactive Zetia 10 mg tablet RxNorm: 929966 Take 1 Tablet(s) Oral QD 0 021 Inactive Zetia 10 mg tablet RxNorm: 685117 Take 1 Tablet(s) Oral QD 0 Inactive Lyrica 50 mg capsule RxNorm: 485100 Take 1 Capsule(s) Oral QAM every morning 0 Inactive Lyrica 100 mg capsule RxNorm: 243234 Take 1 Capsule(s) Oral QHS every night at bedtime 0 Inactive Lyrica 100 mg capsule RxNorm: 726634 Take 1 Capsule(s) Oral QHS every night at bedtime 0 Inactive Lyrica 50 mg capsule RxNorm: 249865 Take 1 Capsule(s) Oral QAM every morning 0 Inactive Medication Administered No Medication Administered data Immunizations Vaccine Codes Dose Date Status Covid-19 CVX: 06/04/2020 Covid-19 CVX: 208 06/04/2020 Influenza CVX: 141 05/07/2020 Influenza CVX: 141 02/13/2019 Hepatitis B CVX: 43 02/16/2014 Hepatitis B CVX: 43 10/12/2013 Hepatitis B CVX: 43 03/14/2013 Tdap CVX: 115 05/07/2009 Tetanus, Diptheria, Pertussis CVX: 115 2008 Reason For Visit No Reason For Visit data Plan of Care Planned Activity Notes Codes Status Date Referral: [facility] WPtel: [address], [address] [id number] USReferralRecords Nekjndzh62/08/2023Referral: [facility] WPtel: [address] [id number] DMSkqxhdxqIucugtnau01/12/2022Referral: General CardiologyReferralCompleted 1Referral: General PsychologistReferralClosed Instructions Comment Date Leonid is a Male being seen living at [facility]. Initial BPS visit 01/2020. PMHx including DMII, CAD w/ 5 stents, Depression, Seizure Disorder and CKD stage 3. He moved into [facility] in 12/2019 but after a hospitalization 05/2021 he moved to the [facility] to have closer nursing attention. Sister Jyotsna involved in his care cell# [phone] Guardian: Don (tapan met in person 09/01/21), now has Lexii (same group as don)Lab Schedule: * 10/06/2022
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
--- OUTSIDE RECORDS SUMMARY | 2020-06-18 18:00 | XMS_ITS | CCD ---
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 Receipt And Report Clerk Name Role Phone Tapan Shirley PA-C Primary Care Provider Unavailabl e Tapan Shirley PA-C Chronic Care Management Unavaila ble Summary Purpose DataExchange Insurance Providers Payer name Policy type / Coverage type Covered republican ID Effective Begin Date Effective End Date Medicare ID Medicare Part B [id number] Unknown Unknown Medicaid ID Medicare Part B [id number] Unknown Unknown Family History Family History data not found Allergies, Adverse Reactions, Alerts Substance Reaction Codes Entered Date Inactivated Date Status LISINOPRIL RxNorm: 193791202/12/2020No Inactive DateActiveMetformin GJlZxwckyt26/28/2020No Inactive DateActive Problems Condition Codes Effective Dates [...] R60.0 ICD-9: 782.312ActiveDandruff in adultICD-10: L21.0 ICD-9: 690.18108947CwatmoLwybixgfYnnwpiu58/28/2020ActiveDiabetes mellitus Type 9Pyozyon17/28/2020ActiveAnemia due to stage 3b chronic kidney diseaseICD- 10: N18.32 ICD-9: 285.2109ActiveChronic kidney disease, stage 3 unspecifiedICD-10: N18.30002/12/2020ActiveCoronary artery disease involving [place] coronary artery of [place] heart, angina presence unspecifiedICD-10: I25.10 ICD-9: 414.01002/12/2020ActiveDepressionICD-10: F32.9 ICD-9: 03926ActiveSecondary hypertensionICD-10: I15.9 ICD-9: 405.9909ActiveSeizure disorderICD-10: G40.909 ICD-9: 345.9009ActiveVitamin D deficiencyICD-10: E55.9 ICD-9: 268.909ActiveAnemia in chronic kidney diseaseICD-10: D63.1 02/12/2020ResolvedHyperlipidemia, unspecifiedICD-10: E78.509Resolved Medications Medication Codes Instructions Start Date Stop Date Status Fill Instructions acetaminophen 500 mg tablet RxNorm: 706424 Take 1 Tablet(s) Oral TID as needed for headache 1 021 Inactive acetaminophen 500 mg tablet RxNorm: 213323 Take 1 Tablet(s) Oral TID as needed for headache 1 021 Inactive Lyrica 100 mg capsule RxNorm: 180975 Take 1 Capsule(s) Oral QHS every night at bedtime 1 Inactive Lyrica 50 mg capsule RxNorm: 716743 Take 1 Capsule(s) Oral QAM every morning 1 021 Inactive hydrocortisone 2.5 % topical cream RxNorm: 857609 Apply to bilateral groin creases Topical BID 0 021 Inactive clotrimazole 1 % topical cream RxNorm: 192977 Apply to bilateral groin areas Topical BID 0 021 Inactive Lyrica 50 mg capsule RxNorm: 219862 Take 1 Capsule(s) Oral QAM every morning 0 020 Inactive Lyrica 100 mg capsule RxNorm: 217500 Take 1 Capsule(s) Oral QHS every night at bedtime 0 020 Inactive Blood Glucose Monitoring kit [...] Inactive Nystop 100,000 unit/gram topical powder RxNorm: 938689 Apply to abd folds, under breasts and L side of groin Topical BID x 14 days, then BID PRN 0 021 Inactive dx: yeast dermatitis Lyrica 100 mg capsule RxNorm: 161717 Take 1 Capsule(s) Oral QHS every night at bedtime 0 020 Inactive Lyrica 50 mg capsule RxNorm: 794955 Take 1 Capsule(s) Oral QAM every morning 0 020 Inactive ketoconazole 2 % shampoo RxNorm: 428914 Apply Topical two times a week with showers 0 021 Inactive cholecalciferol (vitamin D3) 50 mcg (2,000 unit) tablet RxNorm: 164212 Take 1 Tablet(s) Oral QD 0 Inactive Zetia 10 mg tablet RxNorm: 255876 Take 1 Tablet(s) Oral QD 0 021 Inactive Zetia 10 mg tablet RxNorm: 236002 Take 1 Tablet(s) Oral QD 0 Inactive Lyrica 50 mg capsule RxNorm: 963952 Take 1 Capsule(s) Oral QAM every morning 0 Inactive Lyrica 100 mg capsule RxNorm: 457676 Take 1 Capsule(s) Oral QHS every night at bedtime 0 Inactive Lyrica 100 mg capsule RxNorm: 265705 Take 1 Capsule(s) Oral QHS every night at bedtime 0 Inactive Lyrica 50 mg capsule RxNorm: 305162 Take 1 Capsule(s) Oral QAM every morning 0 Inactive Medication Administered No Medication Administered data Immunizations Vaccine Codes Dose Date Status Covid-19 CVX: 208 06/04/2020 Covid-19 CVX: 208 06/04/2020 Influenza CVX: 141 05/07/2020 Influenza CVX: 141 02/13/2019 Hepatitis B CVX: 43 02/16/2014 Hepatitis B CVX: 43 10/12/2013 Hepatitis B CVX: 43 03/14/2013 Tdap CVX: 115 05/07/2009 Tetanus, Diptheria, Pertussis CVX: 115 2008 Reason For Visit No Reason For Visit data Plan of Care Planned Activity Notes Codes Status Date Referral: [facility] WPtel: [address], [address] [id number] [place]ReferralRecords Fetklvvh85/08/2023Referral: [facility] WPtel: [address] [id number] AQYxkrzpjmElcdlcjam37/12/2022Referral: General CardiologyReferralCompleted 1Referral: General PsychologistReferralClosed Instructions Comment Date Leonid is a Male being seen living at [facility]. Initial BPS visit 01/2020. PMHx including DMII, CAD w/ 5 stents, Depression, Seizure Disorder and CKD stage 3. He moved into [facility] in 12/2019 but after a hospitalization 05/2021 he moved to the [facility] to have closer nursing attention. Sister Jyotsna involved in his care cell# [phone] Guardian: Don (tapan met in person 09/01/21), now has Lexii (same group as don)Lab Schedule: * 10/06/2022
--- OUTSIDE RECORDS SUMMARY | 2020-06-20 18:00 | XMS_ITS | CCD ---
Author Name Sandra Mandujano CNP Address [address] [place] [address] Phone Organization [facility] Phone Care Team Providers Care Web Pressman Name Role Phone Tapan Shirley PA-C Primary Care Provider Unavailabl e Tapan Shirley PA-C Chronic Care Management Unavaila ble Summary Purpose DataExchange Insurance Providers Payer name Policy type / Coverage type Covered alliance party ID Effective Begin Date Effective End Date Medicare [place] Medicare Part B [id number] Unknown Unknown Medicaid [place] Medicare Part B [id number] Unknown Unknown Family History Family History data not found Allergies, Adverse Reactions, Alerts Substance Reaction Codes Entered Date Inactivated Date Status LISINOPRIL RxNorm: 6123158No Inactive DateActiveMetformin OFlAmeaiut43/28/2020No Inactive DateActive Problems Condition Codes Effective Dates [...] R60.0 ICD-9: 782.ActiveDandruff in adultICD-10: L21.0 ICD-9: 690.18102139LnvhvyQqjhdmzcFjuehcv68/28/2020ActiveDiabetes mellitus Type 7Vhvadib51/28/2020ActiveAnemia due to stage 3b chronic kidney diseaseICD- 10: N18.32 ICD-9: 285.21002/12/2020ActiveChronic kidney disease, stage 3 unspecifiedICD-10: N18.30002/12/2020ActiveCoronary artery disease involving [place] coronary artery of [place] heart, angina presence unspecifiedICD-10: I25.10 ICD-9: 414.0109ActiveDepressionICD-10: F32.9 ICD-9: 83512ActiveSecondary hypertensionICD-10: I15.9 ICD-9: 405.9909ActiveSeizure disorderICD-10: G40.909 ICD-9: 345.9009ActiveVitamin D deficiencyICD-10: E55.9 ICD-9: 268.909ActiveAnemia in chronic kidney diseaseICD-10: D63.1 02/12/2020ResolvedHyperlipidemia, unspecifiedICD-10: E78.509Resolved Medications Medication Codes Instructions Start Date Stop Date Status Fill Instructions acetaminophen 500 mg tablet RxNorm: 185985 Take 1 Tablet(s) Oral TID as needed for headache 1 021 Inactive Lyrica 100 mg capsule RxNorm: 802118 Take 1 Capsule(s) Oral QHS every night at bedtime 1 021 Inactive Lyrica 50 mg capsule RxNorm: 297163 Take 1 Capsule(s) Oral QAM every morning 1 021 Inactive hydrocortisone 2.5 % topical cream RxNorm: 393389 Apply to bilateral groin creases Topical BID 0 021 Inactive clotrimazole 1 % topical cream RxNorm: 308507 Apply to bilateral groin areas Topical BID 0 021 Inactive Lyrica 50 mg capsule RxNorm: 996601 Take 1 Capsule(s) Oral QAM every morning 0 020 Inactive Lyrica 100 mg capsule RxNorm: 363194 Take 1 Capsule(s) Oral QHS every night [...] Inactive Nystop 100,000 unit/gram topical powder RxNorm: 890488 Apply to abd folds, under breasts and L side of groin Topical BID x 14 days, then BID PRN 0 021 Inactive dx: yeast dermatitis Lyrica 100 mg capsule RxNorm: 348871 Take 1 Capsule(s) Oral QHS every night at bedtime 0 020 Inactive Lyrica 50 mg capsule RxNorm: 923415 Take 1 Capsule(s) Oral QAM every morning 0 020 Inactive ketoconazole 2 % shampoo RxNorm: 247679 Apply Topical two times a week with showers 0 10/20/2 021 Inactive cholecalciferol (vitamin D3) 50 mcg (2,000 unit) tablet RxNorm: 950856 Take 1 Tablet(s) Oral QD 0 Inactive Zetia 10 mg tablet RxNorm: 027045 Take 1 Tablet(s) Oral QD 0 021 Inactive Zetia 10 mg tablet RxNorm: 564683 Take 1 Tablet(s) Oral QD 0 Inactive Lyrica 50 mg capsule RxNorm: 232220 Take 1 Capsule(s) Oral QAM every morning 0 Inactive Lyrica 100 mg capsule RxNorm: 620386 Take 1 Capsule(s) Oral QHS every night at bedtime 0 Inactive Lyrica 100 mg capsule RxNorm: 864890 Take 1 Capsule(s) Oral QHS every night at bedtime 0 Inactive Lyrica 50 mg capsule RxNorm: 748175 Take 1 Capsule(s) Oral QAM every morning [...] Status Date Referral: [facility] WPtel: [address], [address] [id number] [place]ReferralRecords Qtulvfzu36/08/2023Referral: [facility] WPtel: [address] [id number] MOTjsmbmdnVcczhvhto00/12/2022Referral: General CardiologyReferralCompleted 1Patient Education: Patient Medication NzbszgsFwteutgbq43/02/2021Care Plan: BPS Referral OrderSNOMED-CT : [id number] Dajsapn22/02/2021Referral: General PsychologistReferralClosed Instructions Comment Date Leonid is a Male being seen living at The [facility]. Initial BPS visit 01/2020. PMHx including DMII, CAD w/ 5 stents, Depression, Seizure Disorder and CKD stage 3. He moved into The [facility] in 12/2019 but after a hospitalization 05/2021 he moved to the [facility] to have closer nursing attention. Sister Jyotsna involved in his care cell# [phone] Guardian: Don (tapan met in person 09/01/21), now has Lexii (same group as don)Lab Schedule: * 10/06/2022
--- OUTSIDE RECORDS SUMMARY | 2020-07-08 18:00 | XMS_ITS | CCD ---
Author Name Sandra Mandujano CNP Address [address] [facility] [address] [place] [address] Phone Organization [facility] Phone Care Team Providers Care Licensed Massage Practitioner Name Role Phone Rosalina Shirley PA-C Primary Care Provider Unavailabl e Rosalina Shirley PA-C Chronic Care Management Unavaila ble Summary Purpose DataExchange Insurance Providers Payer name Policy type / Coverage type Covered libertarian ID Effective Begin Date Effective End Date Medicare [place] Medicare Part B [id number] Unknown Unknown Medicaid [place] Medicare Part B [id number] Unknown Unknown Family History Family History data not found Allergies, Adverse Reactions, Alerts Substance Reaction Codes Entered Date Inactivated Date Status LISINOPRIL RxNorm: 4104101No Inactive DateActiveMetformin JJrAscprax64/28/2020No Inactive DateActive Problems Condition Codes Effective Dates Condition St atus Anemia due to stage 3b chronic kidney di sease ICD-10: N18.32 ICD-9: 285.ctiveChronic kidney disease, stage 3 unspecifiedICD-10: N18.30007/08/2020ctiveCKD stage 3 due to type 2 diabetes mellitusICD-10: E11.22 ICD-9: 250.4001ActiveDandruff in adultICD-10: L21.0 ICD-9: 690.18007/08/2020ctiveDepressionICD-10: F32.9 ICD-9: 91624ctiveHyperlipidemia associated with type 2 diabetes mellitusICD-10: E11.69 ICD-9: 250.80007/08/2020ctiveSkin tagICD-10: L91.8 ICD-9: 701.9007/08/2020ctiveStage 2 chronic kidney diseaseICD-10: N18.2 ICD-9: 585.ctiveType 2 diabetes mellitus with diabetic polyneuropathy, with long-term current use of insulinICD-10: E11.42 ICD-9: 250.60007/08/2020ctiveContact with and (suspected) exposure to other viral communicable diseasesICD-10: Z20.828 ICD-9: V01.7902/esolvedContact with and (suspected) exposure to covid-19 ICD-10: Z20.822 ICD-9: V01.7902ctiveCandidiasis, intertrigoICD-10: B37.2 ICD-9: 112.301/ctiveGout due to renal impairmentICD-10: M10.30 ICD-9: 274.10006/10/2020ctiveLearning disabilityICD-10: F81.9 ICD-9: 315.ctiveHyperhidrosis of palmsICD-10: L74.512 ICD-9: 705.ActiveLong term (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 insulinICD-10: Z79.4 05/15/2020ActiveLower extremity edemaICD-10: R60.0 ICD-9: 782.5771DrruymAyhmgfdePecjaxe35/28/2020ActiveDiabetes mellitus Type 3Pdujysx50/28/2020ActiveCoronary artery disease involving [place] coronary artery of [place] heart, angina presence unspecifiedICD-10: I25.10 ICD-9: 414.0109ActiveSecondary hypertensionICD-10: I15.9 ICD-9: 405.9909ActiveSeizure disorderICD-10: G40.909 ICD-9: 345.9009ActiveVitamin D deficiencyICD-10: E55.9 ICD-9: 268.909ActiveAnemia in chronic kidney diseaseICD-10: D63.1 02/12/2020ResolvedHyperlipidemia, unspecifiedICD-10: E78.509Resolved Medications Medication Codes Instructions Start Date Stop Date Status Fill Instructions pantoprazole 40 mg tablet,delayed release RxNorm: 452653 Take 1 Tablet(s) Oral QAM every morning 07/08/19 Inactive clopidogrel 75 mg tablet RxNorm: 529871 Take 1 Tablet(s) Oral QD 07/08/19 Inactive Blood Glucose Test strips RxNorm: Use 1 Test Strip QID at PRN 07/08/19 21 Inactive E11.42 senna 8.6 mg tablet RxNorm: 176917 Take 1 Tablet(s) Oral QD 07/08/19 Inactive Novolog Flexpen U-100 Insulin aspart 100 unit/mL (3 mL) subcutaneous RxNorm: 9812766 Administer per sliding scale Milliliter(s) Subcutaneous TID 151-200: 10 u; 201-250: 20 u; 251-300: 30 u; 301-350: 40 u; 351-400: 50 u. 07/08/19 Inactive lisinopril 5 mg tablet RxNorm: 600879 Take 1 Tablet(s) Oral QD 07/08/19 Inactive Novolog Flexpen U-100 Insulin aspart 100 unit/mL (3 mL) subcutaneous RxNorm: 2284436 Inject 85 Unit(s) Subcutaneous TID 07/08/19 Inactive pravastatin 80 mg tablet RxNorm: 805695 Take 1 Tablet(s) Oral QHS every night at bedtime 07/08/19 Inactive clotrimazole 1 % topical cream RxNorm: 558315 Apply to bilateral groin areas Topical BID 07/08/19 Inactive metoprolol succinate ER 200 mg tablet,extended release 24 hr RxNorm: 092510 Take 1 Tablet(s) Oral QD 07/08/19 Inactive Vitamin D3 25 mcg (1,000 unit) tablet RxNorm: 114565 Take 1 Tablet(s) Oral QD 07/08/19 21 Inactive carbamazepine 200 mg tablet RxNorm: 643445 Take 1 Tablet(s) Oral BID 07/08/19 022 Inactive Levemir FlexTouch U-100 Insulin 100 unit/mL (3 mL) subcutaneous pen RxNorm: 425170 Inject 140 Unit(s) Subcutaneous BID 07/08/19 21 021 Inactive torsemide 20 mg tablet RxNorm: 975027 Take 1 Tablet(s) Oral QD 07/08/19 21 023 Inactive venlafaxine 75 mg tablet RxNorm: 287514 Take 1 Tablet(s) Oral QD 07/08/19 21 021 Inactive isosorbide dinitrate 30 mg tablet RxNorm: 549941 Take 1 Tablet(s) Oral QD 07/08/19 21 021 Inactive acetaminophen 500 mg tablet RxNorm: 008999 Take 1 Tablet(s) Oral TID as needed for headache 06/18/19 21 Inactive acetaminophen 500 mg tablet RxNorm: Take 1 Tablet(s) Oral TID as needed for headache 06/18/19 021 Inactive Lyrica 100 mg capsule RxNorm: 829083 Take 1 Capsule(s) Oral QHS every night at bedtime 06/11/19 021 Inactive Lyrica 50 mg capsule RxNorm: 141136 Take 1 Capsule(s) Oral QAM every morning 06/10/19 21 021 Inactive hydrocortisone 2.5 % topical cream RxNorm: 529588 Apply to bilateral groin creases Topical BID 05/15/20 20 021 Inactive clotrimazole 1 % topical cream RxNorm: 520700 Apply to bilateral groin areas Topical BID 05/15/20 20 021 Inactive Lyrica 50 mg capsule RxNorm: 142955 Take 1 Capsule(s) Oral QAM every morning 05/14/20 20 020 Inactive Lyrica 100 mg capsule RxNorm: 720364 Take 1 Capsule(s) Oral QHS every night at bedtime 05/14/20 20 Inactive Blood Glucose Monitoring kit RxNorm: Use as directed QID and PRN 04/24/20 20 Inactive Lancets,Thin 28 gauge RxNorm: Use 1 as directed QID and PRN 04/24/20 20 020 Inactive Blood Glucose Test strips RxNorm: Use 1 Test Strip QID at PRN 04/24/20 20 021 Inactive Blood Glucose Test strips RxNorm: Use 1 Test Strip QID at PRN 04/23/20 20 020 Inactive Lancets,Thin 28 gauge RxNorm: Use 1 as directed QID and PRN 04/23/20 20 020 Inactive Blood Glucose Monitoring kit RxNorm: Use as directed QID and PRN 04/23/20 20 020 Inactive Nystop 100,000 unit/gram topical powder RxNorm: 848296 Apply to abd folds, under breasts and L side of groin Topical BID x 14 days, then BID PRN 04/08/20 20 Inactive dx: yeast dermatitis Lyrica 100 mg capsule RxNorm: 636934 Take 1 Capsule(s) Oral QHS every night at bedtime 03/13/20 20 Inactive Lyrica 50 mg capsule RxNorm: 349822 Take 1 Capsule(s) Oral QAM every morning 03/13/20 20 Inactive ketoconazole 2 % shampoo RxNorm: 712870 Apply Topical two times a week with showers 03/11/20 20 Inactive cholecalciferol (vitamin D3) 50 mcg (2,000 unit) tablet RxNorm: 927907 Take 1 Tablet(s) Oral QD 03/11/20 20 021 Inactive Zetia 10 mg tablet RxNorm: 513799 Take 1 Tablet(s) Oral QD 03/07/20 20 021 Inactive Zetia 10 mg tablet RxNorm: 520918 Take 1 Tablet(s) Oral QD 03/07/20 20 Inactive Lyrica 50 mg capsule RxNorm: 285505 Take 1 Capsule(s) Oral QAM every morning 02/15/20 20 Inactive Lyrica 100 mg capsule RxNorm: 423155 Take 1 Capsule(s) Oral QHS every night at bedtime 02/15/20 20 Inactive Lyrica 100 mg capsule RxNorm: 784291 Take 1 Capsule(s) Oral QHS every night at bedtime 02/15/20 Inactive Lyrica 50 mg capsule RxNorm: 971663 Take 1 Capsule(s) Oral QAM every morning 02/15/20 Inactive Medication Administered No Medication Administered data Immunizations Vaccine Codes Dose Date Status Covid-19 Unknown 06/25/2020 Covid-19 CVX: 208 06/04/2020 Covid-19 CVX: 208 06/04/2020 Influenza CVX: 141 05/07/2020 Influenza CVX: 141 02/13/2019 Hepatitis B CVX: 43 02/16/2014 Hepatitis B CVX: 43 10/12/2013 Hepatitis B CVX: 43 03/14/2013 Tdap CVX: 115 05/07/2009 Tetanus, Diptheria, Pertussis CVX: 115 2008 Vital Signs Date Vital 07/08/2020 Blood Pressure 1: 123/67 Code: 8480-6 Heart Rate 1: 61 bpm Code: 8867-4 SpO2: 99% Temperature: 36.2 (C) / 97.1 (F) Reason For Visit No Reason For Visit data Encounters Encounter Performer Location Location Address Codes Cristiano e ([id number]) DOMICIL VISIT EST PA T Diagnosis: Chronic kidney disease, stage 3 unspecified[ICD10: N18.30] Diagnosis: Anemia due to stage 3b chronic kidney disease[ICD10: N18.32] Diagnosis: Type 2 diabetes mellitus with diabetic polyneuropathy, with long-term current use of insulin[ICD10: E11.42] Diagnosis: CKD stage 3 due to type 2 diabetes mellitus[ICD10: E11.22] Diagnosis: Hyperlipidemia associated with type 2 diabetes mellitus[ICD10: E11.69] Diagnosis: Stage 2 chronic kidney disease[ICD10: N18.2] Diagnosis: Depression[ICD10: F32.9] Diagnosis: Dandruff in adult[ICD10: L21.0] Diagnosis: Skin tag[ICD10: L91.8]Sandra Plasencia - [id number] [place], [place] [address]QIL-6: [id number] Plan of Care Planned Activity Notes Codes Status Date Referral: [facility] WPtel: [address], [address] [id number] USReferralRecords Tbgkfogq24/08/2023Referral: [facility] WPtel: [address] [id number] XVTokacddvKbvisdgfm42/12/2022Referral: General CardiologyReferralCompleted 1Patient Education: Patient Medication WgyiuffSnpeubvfx40/22/2021 Patient Education: Alzheimer''s BwfdtspZhdgnfapq61/22/2021Patient Education: Influenza MwjbhbcDfbttuzbx06/22/2021Patient Education: DementiaCompleted 1Referral: General PsychologistReferralClosed Instructions Comment Date Leonid is a Male being seen living at [facility]. Initial BPS visit 01/2020. PMHx including DMII, CAD w/ 5 stents, Depression, Seizure Disorder and CKD stage 3. He moved into [facility] in 12/2019 but after a hospitalization 05/2021 he moved to the [facility] to have closer nursing attention. Sister Jyotsna involved in his care cell# [phone] Guardian: Don (rosalina met in person 09/01/21), now has Lexii (same group as don)Lab Schedule: * 10/06/2022 Diabetes Sugars a bit high with many readings in 200s and some in the 300s. Recommend he follow up with Dr. Watson.?? Chronic Kidney Disease Continue to monitor.?? Dermatitis No concerns voiced today. Continue current treatment regimen and monitor. Depression Mood stable.?? Skin tag I didn't have Lidocaine with me today, so will remove when I see him next month.?? .07/08/2020
--- OUTSIDE RECORDS SUMMARY | 2020-07-08 18:00 | XMS_ITS | CCD ---
Author Name Akhil Guerrero MD Address [address] [facility] [address] [place] [address] Phone Organization [facility] Phone Care Team Providers Care Manager Workers Compensation Name Role Phone Rosalina Shirley PA-C Primary Care Provider Unavailabl e Rosalina Shirley PA-C Chronic Care Management Unavaila ble Summary Purpose DataExchange Insurance Providers Payer name Policy type / Coverage type Covered constitution party ID Effective Begin Date Effective End Date Medicare [place] Medicare Part B [id number] Unknown Unknown Medicaid [place] Medicare Part B [id number] Unknown Unknown Family History Family History data not found Allergies, Adverse Reactions, Alerts Substance Reaction Codes Entered Date Inactivated Date Status LISINOPRIL RxNorm: 7900342No Inactive DateActiveMetformin PLnQyykifv05/28/2020No Inactive DateActive Problems Condition Codes Effective Dates Condition St atus Contact with and (suspected) exposure to other viral communicable diseases ICD-10: Z20.828 ICD-9: V01.79011ActiveCandidiasis, intertrigoICD-10: B37.2 ICD-9: 112.312ActiveCKD stage 3 due to type 2 diabetes mellitusICD-10: E11.22 ICD-9: 250.4012ActiveHyperhidrosis of palmsICD-10: L74.512 ICD-9: 705.211ActiveHyperlipidemia associated with type 2 diabetes mellitusICD-10: E11.69 ICD-9: 250.801ActiveLong term (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 insulinICD-10: Z79.4 05/15/2020ActiveLower extremity edemaICD-10: R60.0 ICD-9: 782.ActiveType 2 diabetes mellitus with diabetic polyneuropathy, with long-term current use of insulinICD-10: E11.42 ICD-9: 250.6012ActiveDandruff in adultICD-10: L21.0 ICD-9: 690.18107409LvdxxaPceordkbVyqbokr98/28/2020ActiveDiabetes mellitus Type 9Gwxinzm84/28/2020ActiveAnemia due to stage 3b chronic kidney diseaseICD- 10: N18.32 ICD-9: 285.21002/12/2020ActiveChronic kidney disease, stage 3 unspecifiedICD-10: N18.30002/12/2020ActiveCoronary artery disease involving [place] coronary artery of [place] heart, angina presence unspecifiedICD-10: I25.10 ICD-9: 414.01002/12/2020ActiveDepressionICD-10: F32.9 ICD-9: 30654ActiveGout due to renal impairmentICD-10: M10.30 ICD-9: 274.1009ActiveLearning disabilityICD-10: F81.9 ICD-9: 315.ActiveSecondary hypertensionICD-10: I15.9 ICD-9: 405.9909ActiveSeizure disorderICD-10: G40.909 ICD-9: 345.90002/12/2020ActiveVitamin D deficiencyICD-10: E55.9 ICD-9: 268.909ActiveAnemia in chronic kidney diseaseICD-10: D63.1 02/12/2020ResolvedHyperlipidemia, unspecifiedICD-10: E78.Resolved Medications Medication Codes Instructions Start Date Stop Date Status Fill Instructions clotrimazole 1 % topical cream RxNorm: 233337 Apply to bilateral groin areas Topical BID 0 021 Inactive hydrocortisone 2.5 % topical cream RxNorm: 112829 Apply to bilateral groin creases Topical BID 0 021 Inactive Lyrica 50 mg capsule RxNorm: 607013 Take 1 Capsule(s) Oral QAM every morning 0 020 Inactive Lyrica 100 mg capsule RxNorm: 925960 Take 1 Capsule(s) Oral QHS every night [...] Inactive Nystop 100,000 unit/gram topical powder RxNorm: 407673 Apply to abd folds, under breasts and L side of groin Topical BID x 14 days, then BID PRN 0 021 Inactive dx: yeast dermatitis Lyrica 100 mg capsule RxNorm: 830933 Take 1 Capsule(s) Oral QHS every night at bedtime 0 Inactive Lyrica 50 mg capsule RxNorm: 015395 Take 1 Capsule(s) Oral QAM every morning 0 Inactive ketoconazole 2 % shampoo RxNorm: 586497 Apply Topical two times a week with showers 0 Inactive cholecalciferol (vitamin D3) 50 mcg (2,000 unit) tablet RxNorm: 062680 Take 1 Tablet(s) Oral QD 0 Inactive Zetia 10 mg tablet RxNorm: 550756 Take 1 Tablet(s) Oral QD 0 021 Inactive Zetia 10 mg tablet RxNorm: 332144 Take 1 Tablet(s) Oral QD 0 020 Inactive Lyrica 50 mg capsule RxNorm: 453580 Take 1 Capsule(s) Oral QAM every morning 0 Inactive Lyrica 100 mg capsule RxNorm: 346164 Take 1 Capsule(s) Oral QHS every night at bedtime 0 Inactive Lyrica 100 mg capsule RxNorm: 222780 Take 1 Capsule(s) Oral QHS every night at bedtime 0 Inactive Lyrica 50 mg capsule RxNorm: 099389 Take 1 Capsule(s) Oral QAM every morning [...] Performer Location Location Address Codes Cristiano e [phone]) [phone] EST. PATIENT, LEVEL I w/ CS modifier Diagnosis: Contact with and (suspected) exposure to other viral communicable diseases[ICD10: Z20.828]Akhil RamoncaleUniversity of Wisconsin Hospital and Clinics[address] [place], [place] [address]QOX-2: [id number] Plan of Care Planned Activity Notes Codes Status Date Referral: [facility] WPtel: [address] [facility]. , [address] [id number] USReferralRecords Vjhwwdfx23/08/2023Referral: [facility] WPtel: [address] [facility] [address] [id number] AXIixuttvvImkurmkul22/12/2022Referral: General CardiologyReferralCompleted 1Referral: General PsychologistReferralClosed Instructions Comment Date Leonid is a Male being seen living at [facility]. Initial BPS visit 01/2020. PMHx including DMII, CAD w/ 5 stents, Depression, Seizure Disorder and CKD stage 3. He moved into [facility] in 12/2019 but after a hospitalization 05/2021 he moved to the [facility] to have closer nursing attention. Sister Jyotsna involved in his care cell# [phone] Guardian: Don (rosalina met in person 09/01/21), now has Lexii (same group as don)Lab Schedule: * 10/06/2022
--- OUTSIDE RECORDS SUMMARY | 2020-08-01 18:00 | XMS_ITS | CCD ---
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 Name Role Phone Tapan Shirley PA-C Primary Care Provider Unavailabl e Tapan Shirley PA-C Chronic Care Management Unavaila ble Summary Purpose DataExchange Insurance Providers Payer name Policy type / Coverage type Covered green party ID Effective Begin Date Effective End Date Medicare [place] Medicare Part B [id number] Unknown Unknown Medicaid [place] Medicare Part B [id number] Unknown Unknown Family History Family History data not found Allergies, Adverse Reactions, Alerts Substance Reaction Codes Entered Date Inactivated Date Status LISINOPRIL RxNorm: 1368289No Inactive DateActiveMetformin FTkArlxlql38/28/2020No Inactive DateActive Problems Condition Codes Effective Dates Condition St atus Candidiasis, intertrigo ICD-10: B37.2 ICD-9: 112.303/1ActiveCellulitisICD-10: L03.90 ICD-9: 682.903ctiveCoronary artery disease involving chipeww[place] coronary artery of [place] heart, angina presence unspecifiedICD-10: I25.10 ICD-9: 414.01031ActiveSecondary hypertensionICD-10: I15.9 ICD-9: 405.9903ctiveSkin tagICD-10: L91.8 ICD-9: 701.9007/30/2020ctiveAnemia due to stage 3b chronic kidney diseaseICD-10: N18.32 ICD-9: 285.21007/08/2020ctiveChronic kidney disease, stage 3 unspecifiedICD-10: N18.3001ActiveCKD stage 3 due to type 2 diabetes mellitusICD-10: E11.22 ICD-9: 250.40007/08/2020ctiveDandruff in adultICD-10: L21.0 ICD-9: 690.18007/08/2020ctiveDepressionICD-10: F32.9 ICD-9: 633591ActiveHyperlipidemia associated with type 2 diabetes mellitusICD-10: E11.69 ICD-9: 250.8002ctiveStage 2 chronic kidney diseaseICD-10: N18.2 ICD-9: 585.ctiveType 2 diabetes mellitus with diabetic polyneuropathy, with long-term current use of insulinICD-10: E11.42 ICD-9: 250.60007/08/2020ctiveContact with and (suspected) exposure to other viral communicable diseasesICD-10: Z20.828 ICD-9: V01.7907/08/2020esolvedContact with and (suspected) exposure to covid-19 ICD-10: Z20.822 ICD-9: V01.7902ctiveGout due to renal impairmentICD-10: M10.30 ICD-9: 274.1001ctiveLearning disabilityICD-10: F81.9 ICD-9: 315.ctiveHyperhidrosis of palmsICD-10: L74.512 ICD-9: 705.ActiveLong term (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 insulinICD-10: Z79.4 05/15/2020ActiveLower extremity edemaICD-10: R60.0 ICD-9: 782.3122713JdaeqdJfkurvutRrzauxs43/28/2020ActiveDiabetes mellitus Type 0Afdkiqg19/28/2020ActiveSeizure disorderICD-10: G40.909 ICD-9: 345.90002/12/2020ActiveVitamin D deficiencyICD-10: E55.9 ICD-9: 268.909ActiveAnemia in chronic kidney diseaseICD-10: D63.1 02/12/2020ResolvedHyperlipidemia, unspecifiedICD-10: E78.Resolved Medications Medication Codes Instructions Start Date Stop Date Status Fill Instructions amlodipine 5 mg tablet RxNorm: 291237 Take 1 Tablet(s) Oral QD 07/31/19 Inactive cephalexin 500 mg tablet RxNorm: 207364 Take 1 Tablet(s) Oral BID BID - Twice Daily 07/31/19 Inactive Start 08/01/20 pantoprazole 40 mg tablet,delayed release RxNorm: 388163 Take 1 Tablet(s) Oral QAM every morning 07/08/19 022 Inactive clopidogrel 75 mg tablet RxNorm: 045841 Take 1 Tablet(s) Oral QD 07/08/19 Inactive senna 8.6 mg tablet RxNorm: 673771 Take 1 Tablet(s) Oral QD 07/08/19 Inactive Novolog Flexpen U-100 Insulin aspart 100 unit/mL (3 mL) subcutaneous RxNorm: 0229994 Administer per sliding scale Milliliter(s) Subcutaneous TID 151-200: 10 u; 201-250: 20 u; 251-300: 30 u; 301-350: 40 u; 351-400: 50 u. 07/08/19 022 Inactive lisinopril 5 mg tablet RxNorm: 531283 Take 1 Tablet(s) Oral QD 07/08/19 Inactive Novolog Flexpen U-100 Insulin aspart 100 unit/mL (3 mL) subcutaneous RxNorm: 1415079 Inject 85 Unit(s) Subcutaneous TID 07/08/19 022 Inactive pravastatin 80 mg tablet RxNorm: 056090 Take 1 Tablet(s) Oral QHS every night at bedtime 07/08/19 022 Inactive clotrimazole 1 % topical cream RxNorm: 835625 Apply to bilateral groin areas Topical BID 07/08/19 Inactive metoprolol succinate ER 200 mg tablet,extended release 24 hr RxNorm: 457413 Take 1 Tablet(s) Oral QD 07/08/19 021 Inactive Vitamin D3 25 mcg (1,000 unit) tablet RxNorm: 601703 Take 1 Tablet(s) Oral QD 07/08/19 21 021 Inactive carbamazepine 200 mg tablet RxNorm: 869382 Take 1 Tablet(s) Oral BID 07/08/19 21 022 Inactive Levemir FlexTouch U-100 Insulin 100 unit/mL (3 mL) subcutaneous pen RxNorm: 485220 Inject 140 Unit(s) Subcutaneous BID 07/08/19 21 021 Inactive torsemide 20 mg tablet RxNorm: 556679 Take 1 Tablet(s) Oral QD 07/08/19 21 023 Inactive venlafaxine 75 mg tablet RxNorm: 939637 Take 1 Tablet(s) Oral QD 07/08/19 021 Inactive Blood Glucose Test strips RxNorm: Use 1 Test Strip QID at PRN 07/08/19 21 021 Inactive E11.42 isosorbide dinitrate 30 mg tablet RxNorm: 117675 Take 1 Tablet(s) Oral QD 07/08/19 021 Inactive acetaminophen 500 mg tablet RxNorm: 225402 Take 1 Tablet(s) Oral TID as needed for headache 06/18/19 21 021 Inactive acetaminophen 500 mg tablet RxNorm: 318753 Take 1 Tablet(s) Oral TID as needed for headache 06/18/19 21 021 Inactive Lyrica 100 mg capsule RxNorm: 952957 Take 1 Capsule(s) Oral QHS every night at bedtime 06/11/19 021 Inactive Lyrica 50 mg capsule RxNorm: 831207 Take 1 Capsule(s) Oral QAM every morning 06/10/19 21 021 Inactive hydrocortisone 2.5 % topical cream RxNorm: 324865 Apply to bilateral groin creases Topical BID 05/15/20 20 021 Inactive clotrimazole 1 % topical cream RxNorm: 063064 Apply to bilateral groin areas Topical BID 05/15/20 20 021 Inactive Lyrica 50 mg capsule RxNorm: 842565 Take 1 Capsule(s) Oral QAM every morning 05/14/20 20 020 Inactive Lyrica 100 mg capsule RxNorm: 194550 Take 1 Capsule(s) Oral QHS every night [...] Inactive Nystop 100,000 unit/gram topical powder RxNorm: 875087 Apply to abd folds, under breasts and L side of groin Topical BID x 14 days, then BID PRN 04/08/20 20 021 Inactive dx: yeast dermatitis Lyrica 100 mg capsule RxNorm: 399172 Take 1 Capsule(s) Oral QHS every night at bedtime 03/13/20 20 Inactive Lyrica 50 mg capsule RxNorm: 434511 Take 1 Capsule(s) Oral QAM every morning 03/13/20 20 Inactive ketoconazole 2 % shampoo RxNorm: 023188 Apply Topical two times a week with showers 03/11/20 20 Inactive cholecalciferol (vitamin D3) 50 mcg (2,000 unit) tablet RxNorm: 866458 Take 1 Tablet(s) Oral QD 03/11/20 20 Inactive Zetia 10 mg tablet RxNorm: 492123 Take 1 Tablet(s) Oral QD 03/07/20 20 021 Inactive Zetia 10 mg tablet RxNorm: 158196 Take 1 Tablet(s) Oral QD 03/07/20 20 Inactive Lyrica 50 mg capsule RxNorm: 364196 Take 1 Capsule(s) Oral QAM every morning 02/15/20 Inactive Lyrica 100 mg capsule RxNorm: 841950 Take 1 Capsule(s) Oral QHS every night at bedtime 02/15/20 Inactive Lyrica 100 mg capsule RxNorm: 873718 Take 1 Capsule(s) Oral QHS every night at bedtime 02/15/20 Inactive Lyrica 50 mg capsule RxNorm: 283015 Take 1 Capsule(s) Oral QAM every morning [...] BP > OR = 140 CPT-4: G8753 07/30/2020 CUI BP LESS 90 CPT-4: G8754 07/30/2020 Vital Signs Date Vital 07/30/2020 Blood Pressure 1: 180/73 Code: 8480-6 Heart Rate 1: 78 bpm Code: 8867-4 Respiratory Rate: 18 bpm Temperature: 36.2 (C) / 97.2 (F) Reason For Visit No Reason For Visit data Encounters Encounter Performer Location Location Address Codes Cristiano e ([id number]) DOMICIL VISIT EST PA T Diagnosis: Coronary artery disease involving chipewwa coronary artery of chipewwa heart, angina presence unspecified[ICD10: I25.10] Diagnosis: Cutaneous abscess of unspecified foot[ICD10: L02.619] Diagnosis: Cellulitis and abscess of foot[ICD10: L03.119] Diagnosis: Cellulitis[ICD10: L03.90] Diagnosis: Candidiasis, intertrigo[ICD10: B37.2] Diagnosis: Skin tag[ICD10: L91.8] Diagnosis: Secondary hypertension[ICD10: I15.9]Sandra Hull [facility] [address] [place], [place] [address]OZW-3: [id number] Plan of Care Planned Activity Notes Codes Status Date Referral: [facility] WPtel: [address], [address] [id number] [place]ReferralRecords Crhirrdk88/08/2023Referral: [facility] WPtel: [address] [id number] YWOqtxdqiqQravewvwx29/12/2022eferral: General CardiologyReferralCompleted 01/03/2021atient Education: Patient Medication FfkbowtIpvgrzthp89/16/2021 Patient Education: Influenza MshvtdzCwdjpgxkz49/16/2021Referral: General PsychologistReferralClosed Instructions Comment Date Leonid is a Male being seen living at [facility]. Initial BPS visit 01/2020. PMHx including DMII, CAD w/ 5 stents, Depression, Seizure Disorder and CKD stage 3. He moved into [facility] in 12/2019 but after a hospitalization 05/2021 he moved to the [facility] to have closer nursing attention. Sister Jyotsna involved in his care cell# [phone] Guardian: Don (tapan met in person 09/01/21), now has Lexii (same group as don)Lab Schedule: /September* 10/06/2022 Candidiasis, intertrigo Currently no infection, but encouraged him to shower more often (currently showers 2d/w).?? Cellulitis Treating with Keflex. Nursing to monitor. 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 Ischemic Heart Disease ??Monitor. Recent ER visits w/u for chest pain negative for cardiac etiology.?? Hypertension Has been stable - will monitor and if we see consistent increases we will adjust tx.?? Skin tag Patient prepped and lidocaine administered, then found the incorrect scissor in packaging so procedure DC'd.?? Will perform next month as I do not have more supplies with me.?? .07/30/2020
--- OUTSIDE RECORDS SUMMARY | 2020-09-04 18:00 | XMS_ITS | CCD ---
Author Name Sandra Mandujano CNP Address [address] [place] [address] Phone Organization [facility] Phone Care Team Providers Care Matching Machine Operator Name Role Phone Tapan Shirley PA-C Primary Care Provider Unavailabl e Tapan Shirley PA-C Chronic Care Management Unavaila ble Summary Purpose DataExchange Insurance Providers Payer name Policy type / Coverage type Covered green party ID Effective Begin Date Effective End Date Medicare [place] Medicare Part B [id number] Unknown Unknown Medicaid [place] Medicare Part B [id number] Unknown Unknown Family history Runs in the family Diagnosis Age At Onset No Known Diseases N/A Social History Social History Element Codes Description Effec tive Dates Living arrangements Unknown [facility] 09/03/[address]: 1740586 Non-Smoker / No History of Smoking 09/02/[address]: 190824101 No Alcohol Consum ption 09/02/2020 Allergies, Adverse Reactions, Alerts Substance Reaction Codes Entered Date Inactivated Date Status LISINOPRIL RxNorm: 8114208No Inactive DateActiveMetformin SVnWhzgubl83/28/2020No Inactive DateActive Problems Condition Codes Effective Dates Condition St atus Anemia due to stage 3b chronic kidney di sease ICD-10: N18.32 ICD-9: 285.ctiveCoronary artery disease involving sun'aq coronary artery of sun'aq heart, angina presence unspecifiedICD-10: I25.10 ICD-9: 414.01009/03/2020ctiveDepressionICD-10: F32.9 ICD-9: 54911ctiveGout due to renal impairmentICD-10: M10.30 ICD-9: 274.1004ctiveHyperlipidemia associated with type 2 diabetes mellitusICD-10: E11.69 ICD-9: 250.8004ctiveLearning disabilityICD-10: F81.9 ICD-9: 315.204ctiveLong term (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 insulinICD-10: Z79.4 04ctiveLower extremity edemaICD-10: R60.0 ICD-9: 782.304/ctiveSeizure disorderICD-10: G40.909 ICD-9: 345.9004ctiveSkin tagICD-10: L91.8 ICD-9: 701.9009/03/2020ctiveStage 2 chronic 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ICD-10: E11.22 ICD-9: 250.4004ctiveStage 2 chronic kidney diseaseICD-10: N18.2 ICD-9: 585.ctiveType 2 diabetes mellitus with diabetic polyneuropathy, with long-term current use of insulinICD-10: E11.42 ICD-9: 250.6004ctiveVisit for preventive health examinationICD-10: Z00.00 ICD-9: V70.004ctiveVitamin D deficiencyICD-10: E55.9 ICD-9: 268.904ctiveChronic kidney disease, stage 3 unspecifiedICD-10: N18.3004esolvedCandidiasis, intertrigoICD-10: B37.2 ICD-9: 112.303/ctiveCellulitisICD-10: L03.90 ICD-9: 682.903/ctiveSecondary hypertensionICD-10: I15.9 ICD-9: 405.9903/ctiveDandruff in adultICD-10: L21.0 ICD-9: 690.1802ctiveContact with and (suspected) exposure to other viral communicable diseasesICD-10: Z20.828 ICD-9: V01.7902/esolvedContact with and (suspected) exposure to covid-19 ICD-10: Z20.822 ICD-9: V01.7902/1ActiveHyperhidrosis of palmsICD-10: L74.512 ICD-9: 705.1960ErumhkYwbnxbmwKgqdofy49/28/2020ActiveDiabetes mellitus Type 2Bqjtkrm25/28/2020ActiveAnemia in chronic kidney diseaseICD-10: D63.1 02/12/2020ResolvedHyperlipidemia, unspecifiedICD-10: E78.Resolved Medications Medication Codes Instructions Start Date Stop Date Status Fill Instructions amlodipine 10 mg tablet RxNorm: 936797 Take 1 Tablet(s) Oral QD 09/04/19 21 022 Inactive aspirin 81 mg tablet,delayed release RxNorm: 658331 Take 1 Tablet(s) Oral QD 09/04/19 21 021 Inactive Levemir FlexTouch U-100 Insulin 100 unit/mL (3 mL) subcutaneous pen RxNorm: 113332 Inject 150 Unit(s) Subcutaneous BID 09/04/19 21 022 Inactive venlafaxine ER 150 mg tablet,extended release 24 hr RxNorm: 379579 Take 1 Tablet(s) Oral QD 09/04/19 21 021 Inactive clotrimazole-betame thasone 1 %-0.05 % topical cream RxNorm: 812170 Apply to rash on red area on left abdomen/chest Topical BID 08/10/19 21 021 Inactive amlodipine 5 mg tablet RxNorm: 006466 Take 1 Tablet(s) Oral QD 07/31/19 21 021 Inactive cephalexin 500 mg tablet RxNorm: 794433 Take 1 Tablet(s) Oral BID BID - Twice Daily 07/31/19 21 021 Inactive Start 08/01/20 pantoprazole 40 mg tablet,delayed release RxNorm: 959182 Take 1 Tablet(s) Oral QAM every morning 07/08/19 21 022 Inactive clopidogrel 75 mg tablet RxNorm: 709598 Take 1 Tablet(s) Oral QD 07/08/19 21 021 Inactive senna 8.6 mg tablet RxNorm: 706886 Take 1 Tablet(s) Oral QD 07/08/19 21 022 Inactive Novolog Flexpen U-100 Insulin aspart 100 unit/mL (3 mL) subcutaneous RxNorm: 8431079 Administer per sliding scale Milliliter(s) Subcutaneous TID 151-200: 10 u; 201-250: 20 u; 251-300: 30 u; 301-350: 40 u; 351-400: 50 u. 07/08/19 022 Inactive lisinopril 5 mg tablet RxNorm: 070953 Take 1 Tablet(s) Oral QD 07/08/19 21 021 Inactive Novolog Flexpen U-100 Insulin aspart 100 unit/mL (3 mL) subcutaneous RxNorm: 2957588 Inject 85 Unit(s) Subcutaneous TID 07/08/19 022 Inactive pravastatin 80 mg tablet RxNorm: 642241 Take 1 Tablet(s) Oral QHS every night at bedtime 07/08/19 022 Inactive clotrimazole 1 % topical cream RxNorm: 362170 Apply to bilateral groin areas Topical BID 07/08/19 21 022 Inactive metoprolol succinate ER 200 mg tablet,extended release 24 hr RxNorm: 454889 Take 1 Tablet(s) Oral QD 07/08/19 021 Inactive carbamazepine 200 mg tablet RxNorm: 567977 Take 1 Tablet(s) Oral BID 07/08/19 21 022 Inactive torsemide 20 mg tablet RxNorm: 767869 Take 1 Tablet(s) Oral QD 07/08/19 21 023 Inactive Blood Glucose Test strips RxNorm: Use 1 Test Strip QID at PRN 07/08/19 21 021 Inactive E11.42 Vitamin D3 25 mcg (1,000 unit) tablet RxNorm: 228819 Take 1 Tablet(s) Oral QD 07/08/19 021 Inactive isosorbide dinitrate 30 mg tablet RxNorm: 767620 Take 1 Tablet(s) Oral QD 07/08/19 21 021 Inactive Levemir FlexTouch U-100 Insulin 100 unit/mL (3 mL) subcutaneous pen RxNorm: 450099 Inject 140 Unit(s) Subcutaneous BID 07/08/19 21 021 Inactive venlafaxine 75 mg tablet RxNorm: 546203 Take 1 Tablet(s) Oral QD 07/08/19 21 Inactive acetaminophen 500 mg tablet RxNorm: 015656 Take 1 Tablet(s) Oral TID as needed for headache 06/18/19 21 Inactive acetaminophen 500 mg tablet RxNorm: 779037 Take 1 Tablet(s) Oral TID as needed for headache 06/18/19 21 021 Inactive Lyrica 100 mg capsule RxNorm: 411036 Take 1 Capsule(s) Oral QHS every night at bedtime 06/11/19 21 021 Inactive Lyrica 50 mg capsule RxNorm: 339779 Take 1 Capsule(s) Oral QAM every morning 06/10/19 21 021 Inactive hydrocortisone 2.5 % topical cream RxNorm: 495356 Apply to bilateral groin creases Topical BID 05/15/20 20 021 Inactive clotrimazole 1 % topical cream RxNorm: 636471 Apply to bilateral groin areas Topical BID 05/15/20 20 021 Inactive Lyrica 50 mg capsule RxNorm: 443589 Take 1 Capsule(s) Oral QAM every morning 05/14/20 20 020 Inactive Lyrica 100 mg capsule RxNorm: 429274 Take 1 Capsule(s) Oral QHS every night [...] as directed QID and PRN 04/23/20 20 12/09/2 020 Inactive Blood Glucose Monitoring kit RxNorm: Use as directed QID and PRN 04/23/20 20 Inactive Nystop 100,000 unit/gram topical powder RxNorm: 707304 Apply to abd folds, under breasts and L side of groin Topical BID x 14 days, then BID PRN 04/08/20 20 Inactive dx: yeast dermatitis Lyrica 100 mg capsule RxNorm: 901036 Take 1 Capsule(s) Oral QHS every night at bedtime 03/13/20 20 Inactive Lyrica 50 mg capsule RxNorm: 231505 Take 1 Capsule(s) Oral QAM every morning 03/13/20 Inactive ketoconazole 2 % shampoo RxNorm: 547002 Apply Topical two times a week with showers 03/11/20 20 Inactive cholecalciferol (vitamin D3) 50 mcg (2,000 unit) tablet RxNorm: 683818 Take 1 Tablet(s) Oral QD 03/11/20 20 Inactive Zetia 10 mg tablet RxNorm: 831265 Take 1 Tablet(s) Oral QD 03/07/20 20 021 Inactive Zetia 10 mg tablet RxNorm: 736525 Take 1 Tablet(s) Oral QD 03/07/20 20 Inactive Lyrica 50 mg capsule RxNorm: 101875 Take 1 Capsule(s) Oral QAM every morning 02/15/20 20 Inactive Lyrica 100 mg capsule RxNorm: 999022 Take 1 Capsule(s) Oral QHS every night at bedtime 02/15/20 20 Inactive Lyrica 100 mg capsule RxNorm: 195617 Take 1 Capsule(s) Oral QHS every night at bedtime 02/15/20 20 Inactive Lyrica 50 mg capsule RxNorm: 458760 Take 1 Capsule(s) Oral QAM every morning 02/15/20 20 Inactive Medication Administered No Medication Administered data Immunizations Vaccine Codes Dose Date Status Covid-19 Unknown 06/25/2020 Covid-19 CVX: 208 06/04/2020 Covid-19 CVX: 208 06/04/2020 Influenza CVX: 141 05/07/2020 Influenza CVX: 141 02/13/2019 Hepatitis B CVX: 43 02/16/2014 Hepatitis B CVX: 43 10/12/2013 Hepatitis B CVX: 43 03/14/2013 Tdap CVX: 115 05/07/2009 Tetanus, Diptheria, Pertussis CVX: 115 2008 Results Observation Observation Code Item Item Code Result Date S ervice Location [facility] 28851-7 22 09/03/2020 Unknown PHQ9 PHQ9 13847-6 16 09/03/2020 Unknown Procedures Procedure Codes Date PPPS, SUBSEQ VISIT SNOMED CT: 965177137 980090 CPT-4: [id number] BP > OR = 140CPT-4: Y861502IAS BP LESS 90CPT- 4: P53769409/03/2020OS CLIN DEPRES SCRN F/U DOCSNOMED CT: 71472676 CPT-4: [id number] STATUS ASSESSEDCPT-4: 2332W3909/03/2020MNT PAIN NOTED NONE PRSNTCPT-4: 7291Z4209/03/2020FALL RISK ASSESSMENT DOCDCPT-4: 5317C9009/03/2020 Vital Signs Date Vital 09/03/2020 Blood Pressure 1: 161/74 Code: 8480-6 Heart Rate 1: 69 bpm Code: 8867-4 Respiratory Rate: 18 bpm Temperature: 36.5 (C) / 97.7 (F) Weight: 401 lbs 2 oz Code: 3141-9 Reason For Visit No Reason For Visit data Encounters Encounter Performer Location Location Address Codes Cristiano e ([address]) DOMICIL VISIT EST PA T Diagnosis: Anemia due to stage 3b chronic kidney disease[ICD10: N18.32] Diagnosis: Chronic kidney disease, stage 3 unspecified[ICD10: N18.30] Diagnosis: Stage 2 chronic kidney disease[ICD10: N18.2] Diagnosis: Stage 2 chronic 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[ICD10: E11.22] Diagnosis: Hyperlipidemia associated with type 2 diabetes mellitus[ICD10: E11.69] Diagnosis: Type 2 diabetes mellitus with diabetic polyneuropathy, with long-term current use of insulin[ICD10: E11.42] Diagnosis: Skin tag[ICD10: L91.8] Diagnosis: Seizure disorder[ICD10: G40.909] Diagnosis: Vitamin D deficiency[ICD10: E55.9] Diagnosis: Learning disability[ICD10: F81.9] Diagnosis: Depression[ICD10: F32.9] Diagnosis: Gout due to renal impairment[ICD10: M10.30] Diagnosis: Lower extremity edema[ICD10: R60.0] 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 [place], [place] [address]VDF-7: [id number] Plan of Care Planned Activity Notes Codes Status Date Referral: [facility] WPtel: [address], [address] [id number] [place]ReferralRecords Qbgbiitt81/08/2023Referral: [facility] WPtel: [address] [id number] SAYqozwmrwGwpcedimu74/12/2022Referral: General CardiologyReferralCompleted 1Patient Education: Patient Medication SjexgbsWndvlgvpj61/20/2021 Patient Education: Influenza RgfiffkKctlsgjvq40/20/2021Patient Education: Alzheimer''s KeyaspgIssddxtoz29/20/2021Patient Education: DementiaCompleted 1Referral: General PsychologistReferralClosed Instructions Comment Date Leonid is a Male being seen living at [facility]. Initial BPS visit 01/2020. PMHx including DMII, CAD w/ 5 stents, Depression, Seizure Disorder and CKD stage 3. He moved into [facility] in 12/2019 but after a hospitalization 05/2021 [facility] to have closer nursing attention. Sister Jyotsna involved in his care cell# [phone] Guardian: Don (tapan met in person 09/01/21), now has Lexii (same group as don)Lab Schedule: /September* 10/06/2022 penitentiary (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 i nsulin Continue treatment plan per Dr. Watson.?? Gout due to renal impairment Continue Allopurinol and monitor.?? Skin tag Declined skin tag removal.?? Chronic Kidney Disease Checking CMP?? Diabetes Checking A1C.?? Reminded staff that they need to request medication changes and supplies from his junior staff accountant.?? Ischemic Heart Disease I do not believe he followed up with cardiology in (per instructions in hospital DC paperwork). Discussed providing a referral.?? Epilepsy No recent seizure activity.?? Edema Checking CMP Depression Increasing Venlafaxine. Monitor Visit for preventive health examination Due for colonoscopy or cologuard but patient refused.?? Due for PSA - including with lab order today.?? Okay with vision screen and dental cleaning - staff to schedule.?? Vitamin D Deficiency Checking Vitamin D level?? Learning disability Patient lives in an appropriate setting for their needs. Patient receives help from 24/hr claims support specialist. .09/03/2020
--- OUTSIDE RECORDS SUMMARY | 2020-09-11 18:00 | XMS_ITS | CCD ---
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 Doweler Name Role Phone Tapan Shirley PA-C Primary Care Provider Unavailabl e Tapan Shirley PA-C Chronic Care Management Unavaila ble Summary Purpose DataExchange Insurance Providers Payer name Policy type / Coverage type Covered green party ID Effective Begin Date Effective End Date Medicare [place] Medicare Part B [id number] Unknown Unknown Medicaid [place] Medicare Part B [id number] Unknown Unknown Family history Runs in the family Diagnosis Age At Onset No Known Diseases N/A Social History Social History Element Codes Description Effec tive Dates Living arrangements Unknown Correction 09/03/[address]: 3187835 Non-Smoker / No History of Smoking 09/02/[address]: 609406221 No Alcohol Consum ption 09/02/2020 Allergies, Adverse Reactions, Alerts Substance Reaction Codes Entered Date Inactivated Date Status LISINOPRIL RxNorm: 0446563No Inactive DateActiveMetformin KPkWgqzzyp91/28/2020No Inactive DateActive Problems Condition Codes Effective Dates Condition St atus Anemia due to stage 3b chronic kidney vaibhav armstrong ICD-10: N18.32 ICD-9: 285.ctiveCoronary artery disease involving k[place] coronary artery of [place] heart, angina presence unspecifiedICD-10: I25.10 ICD-9: 414.01009/03/2020ctiveDepressionICD-10: F32.9 ICD-9: 85264ctiveGout due to renal impairmentICD-10: M10.30 ICD-9: 274.10009/03/2020ctiveHyperlipidemia associated with type 2 diabetes mellitusICD-10: E11.69 ICD-9: 250.8004ctiveLearning disabilityICD-10: F81.9 ICD-9: 315.ctiveLong term (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 insulinICD-10: Z79.4 04ctiveLower [...] ICD-9: 268.904ctiveChronic kidney disease, stage 3 unspecifiedICD-10: N18.30009/03/2020esolvedCandidiasis, intertrigoICD-10: B37.2 ICD-9: 112.303/ctiveCellulitisICD-10: L03.90 ICD-9: 682.903/ctiveSecondary hypertensionICD-10: I15.9 ICD-9: 405.9903/ctiveDandruff in adultICD-10: L21.0 ICD-9: 690.1802ctiveContact with and (suspected) exposure to other viral communicable diseasesICD-10: Z20.828 ICD-9: V01.7902esolvedContact with and (suspected) exposure to covid-19 ICD-10: Z20.822 ICD-9: V01.7902/ctiveHyperhidrosis of palmsICD-10: L74.512 ICD-9: 705.3034TgjfneScklmpzjScohhiy66/28/2020ActiveDiabetes mellitus Type 2Vujouhj22/28/2020ActiveAnemia in chronic kidney diseaseICD-10: D63.1 02/12/2020ResolvedHyperlipidemia, unspecifiedICD-10: E78.Resolved Medications Medication Codes Instructions Start Date Stop Date Status Fill Instructions icosapent ethyl 1 gram capsule RxNorm: 1174216 Take 2 Capsule(s) (2 gm) Oral BID with meals 09/12/19 21 022 Inactive Okay to dispense one 2gm tab if you have that available. icosapent ethyl 1 gram capsule RxNorm: 2154109 Take 2 Capsule(s) Oral BID 09/12/19 21 021 Inactive Okay to dispense one 2gm tab if you have that available. amlodipine 10 mg tablet RxNorm: 349378 Take 1 Tablet(s) Oral QD 09/04/19 21 022 Inactive aspirin 81 mg tablet,delayed release RxNorm: 432054 Take 1 Tablet(s) Oral QD 09/04/19 21 021 Inactive Levemir FlexTouch U-100 Insulin 100 unit/mL (3 mL) subcutaneous pen RxNorm: 315441 Inject 150 Unit(s) Subcutaneous BID 09/04/19 21 022 Inactive venlafaxine ER 150 mg tablet,extended release 24 hr RxNorm: 771023 Take 1 Tablet(s) Oral QD 09/04/19 21 021 Inactive clotrimazole-betame thasone 1 %-0.05 % topical cream RxNorm: 306613 Apply to rash on red area on left abdomen/chest Topical BID 08/10/19 21 021 Inactive amlodipine 5 mg tablet RxNorm: 862850 Take 1 Tablet(s) Oral QD 07/31/19 21 021 Inactive cephalexin 500 mg tablet RxNorm: 464629 Take 1 Tablet(s) Oral BID BID - Twice Daily 07/31/19 21 021 Inactive Start 08/01/20 pantoprazole 40 mg tablet,delayed release RxNorm: 071009 Take 1 Tablet(s) Oral QAM every morning 07/08/19 21 022 Inactive clopidogrel 75 mg tablet RxNorm: 078308 Take 1 Tablet(s) Oral QD 07/08/19 021 Inactive senna 8.6 mg tablet RxNorm: 005920 Take 1 Tablet(s) Oral QD 07/08/19 21 022 Inactive Novolog Flexpen U-100 Insulin aspart 100 unit/mL (3 mL) subcutaneous RxNorm: 6954269 Administer per sliding scale Milliliter(s) Subcutaneous TID 151-200: 10 u; 201-250: 20 u; 251-300: 30 u; 301-350: 40 u; 351-400: 50 u. 07/08/19 022 Inactive lisinopril 5 mg tablet RxNorm: 813929 Take 1 Tablet(s) Oral QD 07/08/19 021 Inactive Novolog Flexpen U-100 Insulin aspart 100 unit/mL (3 mL) subcutaneous RxNorm: 7827926 Inject 85 Unit(s) Subcutaneous TID 07/08/19 022 Inactive pravastatin 80 mg tablet RxNorm: 670147 Take 1 Tablet(s) Oral QHS every night at bedtime 07/08/19 022 Inactive clotrimazole 1 % topical cream RxNorm: 256039 Apply to bilateral groin areas Topical BID 07/08/19 022 Inactive metoprolol succinate ER 200 mg tablet,extended release 24 hr RxNorm: 038132 Take 1 Tablet(s) Oral QD 07/08/19 021 Inactive carbamazepine 200 mg tablet RxNorm: 001569 Take 1 Tablet(s) Oral BID 07/08/19 022 Inactive torsemide 20 mg tablet RxNorm: 212699 Take 1 Tablet(s) Oral QD 07/08/19 21 023 Inactive Blood Glucose Test strips RxNorm: Use 1 Test Strip QID at PRN 07/08/19 21 021 Inactive E11.42 Vitamin D3 25 mcg (1,000 unit) tablet RxNorm: 968219 Take 1 Tablet(s) Oral QD 07/08/19 21 021 Inactive isosorbide dinitrate 30 mg tablet RxNorm: 338256 Take 1 Tablet(s) Oral QD 07/08/19 21 021 Inactive Levemir FlexTouch U-100 Insulin 100 unit/mL (3 mL) subcutaneous pen RxNorm: 507313 Inject 140 Unit(s) Subcutaneous BID 07/08/19 21 021 Inactive venlafaxine 75 mg tablet RxNorm: 101476 Take 1 Tablet(s) Oral QD 07/08/19 Inactive acetaminophen 500 mg tablet RxNorm: 045047 Take 1 Tablet(s) Oral TID as needed for headache 06/18/19 21 Inactive acetaminophen 500 mg tablet RxNorm: 831172 Take 1 Tablet(s) Oral TID as needed for headache 06/18/19 021 Inactive Lyrica 100 mg capsule RxNorm: 635413 Take 1 Capsule(s) Oral QHS every night at bedtime 06/11/19 21 021 Inactive Lyrica 50 mg capsule RxNorm: 955534 Take 1 Capsule(s) Oral QAM every morning 06/10/19 21 021 Inactive hydrocortisone 2.5 % topical cream RxNorm: 720330 Apply to bilateral groin creases Topical BID 05/15/20 20 021 Inactive clotrimazole 1 % topical cream RxNorm: 482941 Apply to bilateral groin areas Topical BID 05/15/20 20 021 Inactive Lyrica 50 mg capsule RxNorm: 210445 Take 1 Capsule(s) Oral QAM every morning 05/14/20 20 020 Inactive Lyrica 100 mg capsule RxNorm: 883768 Take 1 Capsule(s) Oral QHS every night [...] Test Strip QID at PRN 04/23/20 20 Inactive Lancets,Thin 28 gauge RxNorm: Use 1 as directed QID and PRN 04/23/20 20 Inactive Blood Glucose Monitoring kit RxNorm: Use as directed QID and PRN 04/23/20 20 Inactive Nystop 100,000 unit/gram topical powder RxNorm: 470024 Apply to abd folds, under breasts and L side of groin Topical BID x 14 days, then BID PRN 04/08/20 20 Inactive dx: yeast dermatitis Lyrica 100 mg capsule RxNorm: 147365 Take 1 Capsule(s) Oral QHS every night at bedtime 03/13/20 20 Inactive Lyrica 50 mg capsule RxNorm: 006268 Take 1 Capsule(s) Oral QAM every morning 03/13/20 20 Inactive ketoconazole 2 % shampoo RxNorm: 226390 Apply Topical two times a week with showers 03/11/20 20 Inactive cholecalciferol (vitamin D3) 50 mcg (2,000 unit) tablet RxNorm: 640687 Take 1 Tablet(s) Oral QD 03/11/20 20 Inactive Zetia 10 mg tablet RxNorm: 505359 Take 1 Tablet(s) Oral QD 03/07/20 20 021 Inactive Zetia 10 mg tablet RxNorm: 158322 Take 1 Tablet(s) Oral QD 03/07/20 20 Inactive Lyrica 50 mg capsule RxNorm: 530069 Take 1 Capsule(s) Oral QAM every morning 02/15/20 20 Inactive Lyrica 100 mg capsule RxNorm: 905720 Take 1 Capsule(s) Oral QHS every night at bedtime 02/15/20 20 Inactive Lyrica 100 mg capsule RxNorm: 514703 Take 1 Capsule(s) Oral QHS every night at bedtime 02/15/20 20 Inactive Lyrica 50 mg capsule RxNorm: 706072 Take 1 Capsule(s) Oral QAM every morning 02/15/20 20 020 Inactive Medication Administered No Medication Administered [...] Codes Status Date Referral: [facility] WPtel: [address], [address] [id number] [place]ReferralRecords Snoktnly18/08/2023Referral: [facility] WPtel: [address] [id number]/12/2022Referral: General CardiologyReferralCompleted 1Referral: General PsychologistReferralClosed Instructions Comment Date Leonid is a Male being seen living at [facility]. Initial BPS visit 01/2020. PMHx including DMII, CAD w/ 5 stents, Depression, Seizure Disorder and CKD stage 3. He moved into [facility] in 12/2019 but after a hospitalization 05/2021 he moved to the [facility] to have closer nursing attention. Sister Jyotsna involved in his care cell# [phone] Guardian: Don (tapan met in person 09/01/21), now has Lexii (same group as don)Lab Schedule: * 10/06/2022
--- OUTSIDE RECORDS SUMMARY | 2020-10-02 18:00 | XMS_ITS | CCD ---
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 Name Role Phone Tapan Shirley PA-C Primary Care Provider Unavailabl e Tapan Shirley PA-C Chronic Care Management Unavaila ble Summary Purpose DataExchange Insurance Providers Payer name Policy type / Coverage type Covered republican ID Effective Begin Date Effective End Date Medicare [place] Medicare Part B [id number] Unknown Unknown Medicaid [place] Medicare Part B [id number] Unknown Unknown Family history Runs in the family Diagnosis Age At Onset No Known Diseases N/A Social History Social History Element Codes Description Effec tive Dates Living arrangements Unknown [facility] 09/03/[address]: 8842933 Non-Smoker / No History of Smoking 09/02/[address]: 247766718 No Alcohol Consum ption 09/02/2020 Allergies, Adverse Reactions, Alerts Substance Reaction Codes Entered Date Inactivated Date Status LISINOPRIL RxNorm: 3227177No Inactive DateActiveMetformin YSkQycekac98/28/2020No Inactive DateActive Problems Condition Codes Effective Dates Condition St atus Candidiasis, intertrigo ICD-10: B37.2 ICD-9: 112.305/ctiveHistory of anemia due to CKDICD-10: N18.9 ICD-9: 585.905ctiveHyperlipidemia associated with type 2 diabetes mellitusICD-10: E11.69 ICD-9: 250.8005/ctiveScrotal skin lesionICD-10: N50.9 ICD-9: 608.905ctiveSecondary hypertensionICD-10: I15.9 ICD-9: 405.9905ctiveStage 2 chronic kidney diseaseICD-10: N18.2 ICD-9: 585.205ctiveStage 2 chronic 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ICD-10: E11.22 ICD-9: 250.40010/01/2020ctiveType 2 diabetes mellitus with diabetic polyneuropathy, with long-term current use of insulinICD-10: E11.42 ICD-9: 250.60010/01/2020ctiveAnemia due to stage 3b chronic kidney diseaseICD- 10: N18.32 ICD-9: 285.21010/01/2020esolvedCoronary artery disease involving [place] coronary artery of [place] heart, angina presence unspecifiedICD-10: I25.10 ICD-9: 414.0104ctiveDepressionICD-10: F32.9 ICD-9: 64334ctiveGout due to renal impairmentICD-10: M10.30 ICD-9: 274.1004ctiveLearning disabilityICD-10: F81.9 ICD-9: 315.204ctiveLong term (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 insulinICD-10: Z79.4 04ctiveLower extremity edemaICD-10: R60.0 ICD-9: 782.304ctiveSeizure disorderICD-10: G40.909 ICD-9: 345.9004ctiveSkin tagICD-10: L91.8 ICD-9: 701.9009/03/2020ctiveVisit for preventive health examinationICD-10: Z00.00 ICD-9: V70.004ctiveVitamin D deficiencyICD-10: E55.9 ICD-9: 268.904ctiveChronic kidney disease, stage 3 unspecifiedICD-10: N18.30009/03/2020esolvedCellulitisICD-10: L03.90 ICD-9: 682.903/ctiveDandruff in adultICD-10: L21.0 ICD-9: 690.18007/08/2020ctiveContact with and (suspected) exposure to other viral communicable diseasesICD-10: Z20.828 ICD-9: V01.79021ResolvedContact with and (suspected) exposure to covid-19 ICD-10: Z20.822 ICD-9: V01.791ActiveHyperhidrosis of palmsICD-10: L74.512 ICD-9: 705.8351ZxfzxpZsrpdtoxLpnxroy93/28/2020ActiveDiabetes mellitus Type 2Uotgspb93/28/2020ActiveAnemia in chronic kidney diseaseICD-10: D63.1 02/12/2020ResolvedHyperlipidemia, unspecifiedICD-10: E78.Resolved Medications Medication Codes Instructions Start Date Stop Date Status Fill Instructions lisinopril 10 mg tablet RxNorm: 349910 Take 1 Tablet(s) Oral QD 10/02/19 21 021 Inactive icosapent ethyl 1 gram capsule RxNorm: 9674857 Take 2 Capsule(s) (2 gm) Oral BID with meals 09/12/19 022 Inactive Okay to dispense one 2gm tab if you have that available. icosapent ethyl 1 gram capsule RxNorm: 8232083 Take 2 Capsule(s) Oral BID 09/12/19 21 021 Inactive Okay to dispense one 2gm tab if you have that available. amlodipine 10 mg tablet RxNorm: 105076 Take 1 Tablet(s) Oral QD 09/04/19 21 022 Inactive aspirin 81 mg tablet,delayed release RxNorm: 084296 Take 1 Tablet(s) Oral QD 09/04/19 21 021 Inactive Levemir FlexTouch U-100 Insulin 100 unit/mL (3 mL) subcutaneous pen RxNorm: 392186 Inject 150 Unit(s) Subcutaneous BID 09/04/19 21 022 Inactive venlafaxine ER 150 mg tablet,extended release 24 hr RxNorm: 774338 Take 1 Tablet(s) Oral QD 09/04/19 21 021 Inactive clotrimazole-betame thasone 1 %-0.05 % topical cream RxNorm: 517376 Apply to rash on red area on left abdomen/chest Topical BID 08/10/19 21 Inactive amlodipine 5 mg tablet RxNorm: 991196 Take 1 Tablet(s) Oral QD 07/31/19 21 Inactive cephalexin 500 mg tablet RxNorm: 118115 Take 1 Tablet(s) Oral BID BID - Twice Daily 07/31/19 Inactive Start 08/01/20 pantoprazole 40 mg tablet,delayed release RxNorm: 067965 Take 1 Tablet(s) Oral QAM every morning 07/08/19 Inactive clopidogrel 75 mg tablet RxNorm: 907915 Take 1 Tablet(s) Oral QD 07/08/19 Inactive senna 8.6 mg tablet RxNorm: 632905 Take 1 Tablet(s) Oral QD 07/08/19 Inactive Novolog Flexpen U-100 Insulin aspart 100 unit/mL (3 mL) subcutaneous RxNorm: 0759016 Administer per sliding scale Milliliter(s) Subcutaneous TID 151-200: 10 u; 201-250: 20 u; 251-300: 30 u; 301-350: 40 u; 351-400: 50 u. 07/08/19 Inactive Novolog Flexpen U-100 Insulin aspart 100 unit/mL (3 mL) subcutaneous RxNorm: 2752436 Inject 85 Unit(s) Subcutaneous TID 07/08/19 Inactive pravastatin 80 mg tablet RxNorm: 918862 Take 1 Tablet(s) Oral QHS every night at bedtime 07/08/19 Inactive clotrimazole 1 % topical cream RxNorm: 284735 Apply to bilateral groin areas Topical BID 07/08/19 Inactive metoprolol succinate ER 200 mg tablet,extended release 24 hr RxNorm: 138789 Take 1 Tablet(s) Oral QD 07/08/19 Inactive carbamazepine 200 mg tablet RxNorm: 742477 Take 1 Tablet(s) Oral BID 07/08/19 022 Inactive torsemide 20 mg tablet RxNorm: 371738 Take 1 Tablet(s) Oral QD 07/08/19 21 023 Inactive Blood Glucose Test strips RxNorm: Use 1 Test Strip QID at PRN 07/08/19 21 021 Inactive E11.42 lisinopril 5 mg tablet RxNorm: 323503 Take 1 Tablet(s) Oral QD 07/08/19 021 Inactive Vitamin D3 25 mcg (1,000 unit) tablet RxNorm: 392766 Take 1 Tablet(s) Oral QD 07/08/19 21 021 Inactive isosorbide dinitrate 30 mg tablet RxNorm: 002662 Take 1 Tablet(s) Oral QD 07/08/19 021 Inactive Levemir FlexTouch U-100 Insulin 100 unit/mL (3 mL) subcutaneous pen RxNorm: 847500 Inject 140 Unit(s) Subcutaneous BID 07/08/19 021 Inactive venlafaxine 75 mg tablet RxNorm: 625919 Take 1 Tablet(s) Oral QD 07/08/19 021 Inactive acetaminophen 500 mg tablet RxNorm: 728907 Take 1 Tablet(s) Oral TID as needed for headache 06/18/19 021 Inactive acetaminophen 500 mg tablet RxNorm: 801122 Take 1 Tablet(s) Oral TID as needed for headache 06/18/19 021 Inactive Lyrica 100 mg capsule RxNorm: 010797 Take 1 Capsule(s) Oral QHS every night at bedtime 06/11/19 021 Inactive Lyrica 50 mg capsule RxNorm: 529103 Take 1 Capsule(s) Oral QAM every morning 06/10/19 21 021 Inactive hydrocortisone 2.5 % topical cream RxNorm: 714265 Apply to bilateral groin creases Topical BID 05/15/20 20 021 Inactive clotrimazole 1 % topical cream RxNorm: 123746 Apply to bilateral groin areas Topical BID 05/15/20 20 021 Inactive Lyrica 50 mg capsule RxNorm: 799837 Take 1 Capsule(s) Oral QAM every morning 05/14/20 20 Inactive Lyrica 100 mg capsule RxNorm: 920137 Take 1 Capsule(s) Oral QHS every night at bedtime 05/14/20 20 Inactive Blood Glucose Monitoring kit RxNorm: Use as directed QID and PRN 04/24/20 20 Inactive Lancets,Thin 28 gauge RxNorm: Use 1 as directed QID and PRN 04/24/20 20 Inactive Blood Glucose Test strips RxNorm: Use [...] Inactive Nystop 100,000 unit/gram topical powder RxNorm: 782611 Apply to abd folds, under breasts and L side of groin Topical BID x 14 days, then BID PRN 04/08/20 20 Inactive dx: yeast dermatitis Lyrica 100 mg capsule RxNorm: 343473 Take 1 Capsule(s) Oral QHS every night at bedtime 03/13/20 20 Inactive Lyrica 50 mg capsule RxNorm: 066212 Take 1 Capsule(s) Oral QAM every morning 03/13/20 20 Inactive ketoconazole 2 % shampoo RxNorm: 172783 Apply Topical two times a week with showers 03/11/20 20 Inactive cholecalciferol (vitamin D3) 50 mcg (2,000 unit) tablet RxNorm: 608387 Take 1 Tablet(s) Oral QD 03/11/20 20 Inactive Zetia 10 mg tablet RxNorm: 670048 Take 1 Tablet(s) Oral QD 03/07/20 20 021 Inactive Zetia 10 mg tablet RxNorm: 398663 Take 1 Tablet(s) Oral QD 03/07/20 Inactive Lyrica 50 mg capsule RxNorm: 010930 Take 1 Capsule(s) Oral QAM every morning 02/15/20 Inactive Lyrica 100 mg capsule RxNorm: 318595 Take 1 Capsule(s) Oral QHS every night at bedtime 02/15/20 Inactive Lyrica 100 mg capsule RxNorm: 218141 Take 1 Capsule(s) Oral QHS every night at bedtime 02/15/20 Inactive Lyrica 50 mg capsule RxNorm: 994638 Take 1 Capsule(s) Oral QAM every morning [...] BP > OR = 140 CPT-4: G8753 10/01/2020 CUI BP LESS 90 CPT-4: G8754 10/01/2020 Vital Signs Date Vital 10/01/2020 Blood Pressure 1: 162/89 Code: 8480-6 Heart Rate 1: 69 bpm Code: 8867-4 Respiratory Rate: 14 bpm Temperature: 36.5 (C) / 97.7 (F) Weight: 399 lbs 6 oz Code: 3141-9 Reason For Visit No Reason For Visit data Encounters Encounter Performer Location Location Address Codes Cristiano e ([id number]) DOMICIL VISIT EST CARLO Benitez Diagnosis: Hyperlipidemia associated with type 2 diabetes mellitus[ICD10: E11.69] Diagnosis: Stage 2 chronic 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[ICD10: E11.22] Diagnosis: Type 2 diabetes mellitus with diabetic polyneuropathy, with long-term current use of insulin[ICD10: E11.42] Diagnosis: Candidiasis, intertrigo[ICD10: B37.2] Diagnosis: Personal history of diseases of the blood and blood-forming organs and certain disordersinvolving the immune mechanism[ICD10: Z86.2] Diagnosis: History of anemia due to CKD[ICD10: N18.9] Diagnosis: Anemia due to stage 3b chronic kidney disease[ICD10: N18.32] Diagnosis: Stage 2 chronic kidney disease[ICD10: N18.2] Diagnosis: Scrotal skin lesion[ICD10: N50.9] Diagnosis: Secondary hypertension[ICD10: I15.9]Sandra MandujanoDiane [facility] [address] [place], [place] [address]LMX-8: [id number]/ Plan of Care Planned Activity Notes Codes Status Date Referral: [facility] WPtel: [address], [address] [id number] USReferralRecords Gajctsgz60/08/2023Referral: [facility] WPtel: [address] [id number] GTSsvowlptTluzkyqfq08/12/2022Referral: General CardiologyReferralCompleted 1Patient Education: Patient Medication FlumazjOjdoolygb77/18/2021 Patient Education: Influenza GtwfnctKylizdtqt34/18/2021Referral: General PsychologistReferralClosed Instructions Comment Date Leonid is a Male being seen living at [facility]. Initial BPS visit 01/2020. PMHx including DMII, CAD w/ 5 stents, Depression, Seizure Disorder and CKD stage 3. He moved into [facility] in 12/2019 but after a hospitalization 05/2021 he moved to the [facility] to have closer nursing attention. Sister Jyotsna involved in his care cell# [phone] Guardian: Don (tapan met in person 09/01/21), now has Lexii (same group as don)Lab Schedule: * 10/06/2022 Chronic Kidney Disease Anemia 2/2 CKD resolved.?? Scrotal skin lesion Referring to a wound RN. Recommend staff member be present during wound RN visits or wound RN be male.?? Diabetes Continue Vascepa. Encourage healthy lifestyle choices.?? Hypertension Increasing Lisinopril. Will optimize current agents vs adding additional medications.?? Candidiasis, intertrigo Referring to a wound RN. Would recommend a staff member be present for the [facility] RN treatment sessions.?? .10/01/2020
--- OUTSIDE RECORDS SUMMARY | 2020-10-22 18:00 | XMS_ITS | CCD ---
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 Pelletizer Operator Name Role Phone Tapan Shirley PA-C Primary Care Provider Unavailabl e Tapan Shirley PA-C Chronic Care Management Unavaila ble Summary Purpose DataExchange Insurance Providers Payer name Policy type / Coverage type Covered alliance party ID Effective Begin Date Effective End Date [place] Medicare Part B [id number] Unknown Unknown [place] [id number] Unknown Unknown Family history Runs in the family Diagnosis Age At Onset No Known Diseases N/A Social History Social History Element Codes Description Effec tive Dates Living arrangements Unknown Mcfp 09/03/[address]: 0316175 Non-Smoker / No History of Smoking 09/02/[address]: 451212212 No Alcohol Consum ption 09/02/2020 Allergies, Adverse Reactions, Alerts Substance Reaction Codes Entered Date Inactivated Date Status LISINOPRIL RxNorm: 3098049No Inactive DateActiveMetformin PQkQhatcgw70/28/2020No Inactive DateActive Problems Condition Codes Effective Dates Condition St atus Candidiasis, intertrigo ICD-10: B37.2 ICD-9: 112.305ctiveHistory of anemia due to CKDICD-10: N18.9 ICD-9: 585.9010/01/2020ctiveHyperlipidemia associated with type 2 diabetes mellitusICD-10: E11.69 ICD-9: 250.8005ctiveScrotal skin lesionICD-10: N50.9 ICD-9: 608.905ctiveSecondary hypertensionICD-10: I15.9 ICD-9: 405.9905ctiveStage 2 chronic kidney diseaseICD-10: N18.2 ICD-9: 585.205ctiveStage 2 chronic 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ICD-10: E11.22 ICD-9: 250.4005ctiveType 2 diabetes mellitus with diabetic polyneuropathy, with long-term current use of insulinICD-10: E11.42 ICD-9: 250.6005ctiveAnemia due to stage 3b chronic kidney diseaseICD- 10: N18.32 ICD-9: 285.21010/01/2020esolvedCoronary artery disease involving [place] coronary artery of [place] heart, angina presence unspecifiedICD-10: I25.10 ICD-9: 414.0104ctiveDepressionICD-10: F32.9 ICD-9: 12062/ctiveGout due to renal impairmentICD-10: M10.30 ICD-9: 274.1004ctiveLearning disabilityICD-10: F81.9 ICD-9: 315.204ctiveLong term (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 insulinICD-10: Z79.4 09/03/2020ctiveLower extremity edemaICD-10: R60.0 ICD-9: 782.304ctiveSeizure disorderICD-10: G40.909 ICD-9: 345.9004ctiveSkin tagICD-10: L91.8 ICD-9: 701.9009/03/2020ctiveVisit for preventive health examinationICD-10: Z00.00 ICD-9: V70.004ctiveVitamin D deficiencyICD-10: E55.9 ICD-9: 268.904ctiveChronic kidney disease, stage 3 unspecifiedICD-10: N18.3004esolvedCellulitisICD-10: L03.90 ICD-9: 682.903ctiveDandruff in adultICD-10: L21.0 ICD-9: 690.1802ctiveContact with and (suspected) exposure to other viral communicable diseasesICD-10: Z20.828 ICD-9: V01.7902esolvedContact with and (suspected) exposure to covid-19 ICD-10: Z20.822 ICD-9: V01.7902/1ActiveHyperhidrosis of palmsICD-10: L74.512 ICD-9: 705.1810TlvptxXtnspxnpDjfofao14/28/2020ActiveDiabetes mellitus Type 4Zskrbox03/28/2020ActiveAnemia in chronic kidney diseaseICD-10: D63.1 02/12/2020ResolvedHyperlipidemia, unspecifiedICD-10: E78.Resolved Medications Medication Codes Instructions Start Date Stop Date Status Fill Instructions lisinopril 20 mg tablet RxNorm: 746182 Take 1 Tablet(s) Oral QD 10/23/19 21 Inactive lisinopril 20 mg tablet RxNorm: 355712 Take 1 Tablet(s) Oral QD 10/23/19 21 Inactive lisinopril 10 mg tablet RxNorm: 623557 Take 1 Tablet(s) Oral QD 10/02/19 021 Inactive icosapent ethyl 1 gram capsule RxNorm: 9638587 Take 2 Capsule(s) (2 gm) Oral BID with meals 09/12/19 022 Inactive Okay to dispense one 2gm tab if you have that available. icosapent ethyl 1 gram capsule RxNorm: 4899452 Take 2 Capsule(s) Oral BID 09/12/19 021 Inactive Okay to dispense one 2gm tab if you have that available. amlodipine 10 mg tablet RxNorm: 066121 Take 1 Tablet(s) Oral QD 09/04/19 21 022 Inactive aspirin 81 mg tablet,delayed release RxNorm: 204619 Take 1 Tablet(s) Oral QD 09/04/19 21 021 Inactive Levemir FlexTouch U-100 Insulin 100 unit/mL (3 mL) subcutaneous pen RxNorm: 090616 Inject 150 Unit(s) Subcutaneous BID 09/04/19 21 022 Inactive venlafaxine ER 150 mg tablet,extended release 24 hr RxNorm: 492674 Take 1 Tablet(s) Oral QD 04/ Inactive clotrimazole-betame thasone 1 %-0.05 % topical cream RxNorm: 605249 Apply to rash on red area on left abdomen/chest Topical BID 08/10/19 21 Inactive amlodipine 5 mg tablet RxNorm: 266825 Take 1 Tablet(s) Oral QD 07/31/19 Inactive cephalexin 500 mg tablet RxNorm: 385294 Take 1 Tablet(s) Oral BID BID - Twice Daily 07/31/19 Inactive Start 08/01/20 pantoprazole 40 mg tablet,delayed release RxNorm: 323036 Take 1 Tablet(s) Oral QAM every morning 07/08/19 Inactive clopidogrel 75 mg tablet RxNorm: 513731 Take 1 Tablet(s) Oral QD 07/08/19 Inactive senna 8.6 mg tablet RxNorm: 320782 Take 1 Tablet(s) Oral QD 07/08/19 Inactive Novolog Flexpen U-100 Insulin aspart 100 unit/mL (3 mL) subcutaneous RxNorm: 4896229 Administer per sliding scale Milliliter(s) Subcutaneous TID 151-200: 10 u; 201-250: 20 u; 251-300: 30 u; 301-350: 40 u; 351-400: 50 u. 07/08/19 Inactive Novolog Flexpen U-100 Insulin aspart 100 unit/mL (3 mL) subcutaneous RxNorm: 2760930 Inject 85 Unit(s) Subcutaneous TID 07/08/19 Inactive pravastatin 80 mg tablet RxNorm: 630176 Take 1 Tablet(s) Oral QHS every night at bedtime 07/08/19 Inactive clotrimazole 1 % topical cream RxNorm: 818933 Apply to bilateral groin areas Topical BID 07/08/19 Inactive metoprolol succinate ER 200 mg tablet,extended release 24 hr RxNorm: 914253 Take 1 Tablet(s) Oral QD 07/08/19 Inactive carbamazepine 200 mg tablet RxNorm: 784750 Take 1 Tablet(s) Oral BID 07/08/19 21 022 Inactive torsemide 20 mg tablet RxNorm: 342061 Take 1 Tablet(s) Oral QD 07/08/19 023 Inactive Blood Glucose Test strips RxNorm: Use 1 Test Strip QID at PRN 07/08/19 21 021 Inactive E11.42 lisinopril 5 mg tablet RxNorm: 191603 Take 1 Tablet(s) Oral QD 07/08/19 021 Inactive Vitamin D3 25 mcg (1,000 unit) tablet RxNorm: 235241 Take 1 Tablet(s) Oral QD 07/08/19 021 Inactive isosorbide dinitrate 30 mg tablet RxNorm: 382637 Take 1 Tablet(s) Oral QD 07/08/19 021 Inactive Levemir FlexTouch U-100 Insulin 100 unit/mL (3 mL) subcutaneous pen RxNorm: 312242 Inject 140 Unit(s) Subcutaneous BID 07/08/19 021 Inactive venlafaxine 75 mg tablet RxNorm: 344620 Take 1 Tablet(s) Oral QD 07/08/19 021 Inactive acetaminophen 500 mg tablet RxNorm: 216173 Take 1 Tablet(s) Oral TID as needed for headache 06/18/19 021 Inactive acetaminophen 500 mg tablet RxNorm: 808425 Take 1 Tablet(s) Oral TID as needed for headache 06/18/19 021 Inactive Lyrica 100 mg capsule RxNorm: 811134 Take 1 Capsule(s) Oral QHS every night at bedtime 06/11/19 021 Inactive Lyrica 50 mg capsule RxNorm: 902425 Take 1 Capsule(s) Oral QAM every morning 06/10/19 21 021 Inactive hydrocortisone 2.5 % topical cream RxNorm: 327767 Apply to bilateral groin creases Topical BID 05/15/20 20 021 Inactive clotrimazole 1 % topical cream RxNorm: 691013 Apply to bilateral groin areas Topical BID 05/15/20 20 021 Inactive Lyrica 50 mg capsule RxNorm: 109569 Take 1 Capsule(s) Oral QAM every morning 05/14/20 20 Inactive Lyrica 100 mg capsule RxNorm: 572746 Take 1 Capsule(s) Oral QHS every night at bedtime 05/14/20 20 Inactive Blood Glucose Monitoring kit RxNorm: Use as directed QID and PRN 04/24/20 20 Inactive Lancets,Thin 28 gauge RxNorm: Use 1 as directed QID and PRN 04/24/20 20 Inactive Blood Glucose Test strips RxNorm: Use 1 Test Strip QID at PRN 04/24/20 20 Inactive Blood Glucose Test strips RxNorm: Use 1 Test Strip QID at PRN 04/23/20 20 Inactive Lancets,Thin 28 gauge RxNorm: Use 1 as directed QID and PRN 04/23/20 20 Inactive Blood Glucose Monitoring kit RxNorm: Use as directed QID and PRN 04/23/20 20 Inactive Nystop 100,000 unit/gram topical powder RxNorm: 631813 Apply to abd folds, under breasts and L side of groin Topical BID x 14 days, then BID PRN 04/08/20 20 Inactive dx: yeast dermatitis Lyrica 100 mg capsule RxNorm: 086420 Take 1 Capsule(s) Oral QHS every night at bedtime 03/13/20 20 Inactive Lyrica 50 mg capsule RxNorm: 387803 Take 1 Capsule(s) Oral QAM every morning 03/13/20 20 Inactive ketoconazole 2 % shampoo RxNorm: 295215 Apply Topical two times a week with showers 03/11/20 20 Inactive cholecalciferol (vitamin D3) 50 mcg (2,000 unit) tablet RxNorm: 637675 Take 1 Tablet(s) Oral QD 03/11/20 20 Inactive Zetia 10 mg tablet RxNorm: 066038 Take 1 Tablet(s) Oral QD 03/07/20 20 Inactive Zetia 10 mg tablet RxNorm: 698159 Take 1 Tablet(s) Oral QD 03/07/20 Inactive Lyrica 50 mg capsule RxNorm: 676066 Take 1 Capsule(s) Oral QAM every morning 02/15/20 Inactive Lyrica 100 mg capsule RxNorm: 497889 Take 1 Capsule(s) Oral QHS every night at bedtime 02/15/20 Inactive Lyrica 100 mg capsule RxNorm: 049526 Take 1 Capsule(s) Oral QHS every night at bedtime 02/15/20 Inactive Lyrica 50 mg capsule RxNorm: 115627 Take 1 Capsule(s) Oral QAM every morning [...] Status Date Referral: [facility] WPtel: [address], [address] [id number] [place]ReferralRecords [id number]/08/2023Referral: [facility] WPtel: [address] [id number] CQQdgvxyreRsuugzbzb77/12/2022eferral: General CardiologyReferralCompleted 1Referral: General PsychologistReferralClosed Instructions Comment Date Leonid is a Male being seen living at [facility]. Initial BPS visit 01/2020. PMHx including DMII, CAD w/ 5 stents, Depression, Seizure Disorder and CKD stage 3. He moved into [facility] in 12/2019 but after a hospitalization 05/2021 he moved to the [facility] to have closer nursing attention. Sister Jyotsna involved in his care cell# [phone] Guardian: Don (tapan met in person 09/01/21), now has Lexii (same group as don)Lab Schedule: * 10/06/2022
--- OUTSIDE RECORDS SUMMARY | 2020-10-31 18:00 | XMS_ITS | CCD ---
Author Name Sandra Mandujano CNP Address [address] [place] [address] Phone Organization [facility] Phone Care Team Providers Care Therapist Speech Name Role Phone Tapan Shirley PA-C Primary Care Provider Unavailabl e Tapan Shirley PA-C Chronic Care Management Unavaila ble Summary Purpose DataExchange Insurance Providers Payer name Policy type / Coverage type Covered green party ID Effective Begin Date Effective End Date Medicare [place] Medicare Part B [id number] Unknown Unknown Medicaid [place] Medicare Part B [id number] Unknown Unknown Family history Runs in the family Diagnosis Age At Onset No Known Diseases N/A Social History Social History Element Codes Description Effec tive Dates Living arrangements Unknown Fdc 09/03/[address]: 6692583 Non-Smoker / No History of Smoking 09/02/[address]: 273919896 No Alcohol Consum ption 09/02/2020 Allergies, Adverse Reactions, Alerts Substance Reaction Codes Entered Date Inactivated Date Status LISINOPRIL RxNorm: 8411148No Inactive DateActiveMetformin AAuTgckowo87/28/2020No Inactive DateActive Problems Condition Codes Effective Dates Condition St atus Candidiasis, intertrigo ICD-10: B37.2 ICD-9: 112.306/1ActiveInappropriate sexual behaviorICD-10: Z72.89 ICD-9: 312.89061ActiveScrotal skin lesionICD-10: N50.9 ICD-9: 608.9061ActiveSecondary hypertensionICD-10: I15.9 ICD-9: 405.9906/1ActiveCellulitisICD-10: L03.90 ICD-9: 682.906esolvedHistory of anemia due to CKDICD-10: N18.9 ICD-9: 585.9010/01/2020ctiveHyperlipidemia associated with type 2 diabetes mellitusICD-10: E11.69 ICD-9: 250.8005ctiveStage 2 chronic kidney diseaseICD-10: N18.2 ICD-9: 585.ctiveStage 2 chronic 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ICD-10: E11.22 ICD-9: 250.4005ctiveType 2 diabetes mellitus with diabetic polyneuropathy, with long-term current use of insulinICD-10: E11.42 ICD-9: 250.6005ctiveAnemia due to stage 3b chronic kidney diseaseICD- 10: N18.32 ICD-9: 285.esolvedCoronary artery disease involving [place] coronary artery of [place] heart, angina presence unspecifiedICD-10: I25.10 ICD-9: 414.0104ctiveDepressionICD-10: F32.9 ICD-9: 85701/ctiveGout due to renal impairmentICD-10: M10.30 ICD-9: 274.1004ctiveLearning disabilityICD-10: F81.9 ICD-9: 315.204ctiveLong term (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 insulinICD-10: Z79.4 09/03/2020ctiveLower extremity edemaICD-10: R60.0 ICD-9: 782.304ctiveSeizure disorderICD-10: G40.909 ICD-9: 345.9004ctiveSkin tagICD-10: L91.8 ICD-9: 701.9009/03/2020ctiveVisit for preventive health examinationICD-10: Z00.00 ICD-9: V70.004ctiveVitamin D deficiencyICD-10: E55.9 ICD-9: 268.904ctiveChronic kidney disease, stage 3 unspecifiedICD-10: N18.30009/03/2020esolvedDandruff in adultICD-10: L21.0 ICD-9: 690.180/1ActiveContact with and (suspected) exposure to other viral communicable diseasesICD-10: Z20.828 ICD-9: V01.791ResolvedContact with and (suspected) exposure to covid-19 ICD-10: Z20.822 ICD-9: V01.791ActiveHyperhidrosis of palmsICD-10: L74.512 ICD-9: 705.2990AuzcsxQnebzrapVgfgkfm89/28/2020ActiveDiabetes mellitus Type 9Uerwrme85/28/2020ActiveAnemia in chronic kidney diseaseICD-10: D63.1 02/12/2020ResolvedHyperlipidemia, unspecifiedICD-10: E78.Resolved Medications Medication Codes Instructions Start Date Stop Date Status Fill Instructions lisinopril 30 mg tablet RxNorm: 269254 Take 1 Tablet(s) Oral QD 10/30/19 21 021 Inactive lisinopril 20 mg tablet RxNorm: 141784 Take 1 Tablet(s) Oral QD 10/23/19 21 021 Inactive lisinopril 20 mg tablet RxNorm: 190138 Take 1 Tablet(s) Oral QD 10/23/19 21 021 Inactive lisinopril 10 mg tablet RxNorm: 985130 Take 1 Tablet(s) Oral QD 10/02/19 21 021 Inactive icosapent ethyl 1 gram capsule RxNorm: 8841890 Take 2 Capsule(s) (2 gm) Oral BID with meals 09/12/19 21 022 Inactive Okay to dispense one 2gm tab if you have that available. icosapent ethyl 1 gram capsule RxNorm: 5781342 Take 2 Capsule(s) Oral BID 09/12/19 21 021 Inactive Okay to dispense one 2gm tab if you have that available. amlodipine 10 mg tablet RxNorm: 280617 Take 1 Tablet(s) Oral QD 09/04/19 21 022 Inactive aspirin 81 mg tablet,delayed release RxNorm: 947767 Take 1 Tablet(s) Oral QD 09/04/19 Inactive Levemir FlexTouch U-100 Insulin 100 unit/mL (3 mL) subcutaneous pen RxNorm: 319899 Inject 150 Unit(s) Subcutaneous BID 09/04/19 21 022 Inactive venlafaxine ER 150 mg tablet,extended release 24 hr RxNorm: 399279 Take 1 Tablet(s) Oral QD 09/04/19 Inactive clotrimazole-betame thasone 1 %-0.05 % topical cream RxNorm: 131935 Apply to rash on red area on left abdomen/chest Topical BID 08/10/19 Inactive amlodipine 5 mg tablet RxNorm: 418881 Take 1 Tablet(s) Oral QD 07/31/19 Inactive cephalexin 500 mg tablet RxNorm: 619866 Take 1 Tablet(s) Oral BID BID - Twice Daily 07/31/19 Inactive Start 08/01/20 pantoprazole 40 mg tablet,delayed release RxNorm: 588300 Take 1 Tablet(s) Oral QAM every morning 07/08/19 Inactive clopidogrel 75 mg tablet RxNorm: 297584 Take 1 Tablet(s) Oral QD 07/08/19 Inactive senna 8.6 mg tablet RxNorm: 446529 Take 1 Tablet(s) Oral QD 07/08/19 022 Inactive Novolog Flexpen U-100 Insulin aspart 100 unit/mL (3 mL) subcutaneous RxNorm: 9944518 Administer per sliding scale Milliliter(s) Subcutaneous TID 151-200: 10 u; 201-250: 20 u; 251-300: 30 u; 301-350: 40 u; 351-400: 50 u. 07/08/19 Inactive Novolog Flexpen U-100 Insulin aspart 100 unit/mL (3 mL) subcutaneous RxNorm: 3586777 Inject 85 Unit(s) Subcutaneous TID 07/08/19 022 Inactive pravastatin 80 mg tablet RxNorm: 604669 Take 1 Tablet(s) Oral QHS every night at bedtime 07/08/19 022 Inactive clotrimazole 1 % topical cream RxNorm: 545798 Apply to bilateral groin areas Topical BID 07/08/19 21 022 Inactive carbamazepine 200 mg tablet RxNorm: 670878 Take 1 Tablet(s) Oral BID 07/08/19 022 Inactive torsemide 20 mg tablet RxNorm: 945790 Take 1 Tablet(s) Oral QD 07/08/19 21 023 Inactive Blood Glucose Test strips RxNorm: Use 1 Test Strip QID at PRN 07/08/19 21 021 Inactive E11.42 lisinopril 5 mg tablet RxNorm: 407567 Take 1 Tablet(s) Oral QD 07/08/19 021 Inactive metoprolol succinate ER 200 mg tablet,extended release 24 hr RxNorm: 208943 Take 1 Tablet(s) Oral QD 07/08/19 021 Inactive Vitamin D3 25 mcg (1,000 unit) tablet RxNorm: 819117 Take 1 Tablet(s) Oral QD 07/08/19 021 Inactive isosorbide dinitrate 30 mg tablet RxNorm: 394892 Take 1 Tablet(s) Oral QD 07/08/19 021 Inactive Levemir FlexTouch U-100 Insulin 100 unit/mL (3 mL) subcutaneous pen RxNorm: 556302 Inject 140 Unit(s) Subcutaneous BID 07/08/19 021 Inactive venlafaxine 75 mg tablet RxNorm: 687742 Take 1 Tablet(s) Oral QD 07/08/19 021 Inactive acetaminophen 500 mg tablet RxNorm: 368266 Take 1 Tablet(s) Oral TID as needed for headache 06/18/19 021 Inactive acetaminophen 500 mg tablet RxNorm: 253013 Take 1 Tablet(s) Oral TID as needed for headache 06/18/19 021 Inactive Lyrica 100 mg capsule RxNorm: 300001 Take 1 Capsule(s) Oral QHS every night at bedtime 06/11/19 021 Inactive Lyrica 50 mg capsule RxNorm: 945874 Take 1 Capsule(s) Oral QAM every morning 06/10/19 21 Inactive hydrocortisone 2.5 % topical cream RxNorm: 281971 Apply to bilateral groin creases Topical BID 05/15/20 20 Inactive clotrimazole 1 % topical cream RxNorm: 202378 Apply to bilateral groin areas Topical BID 05/15/20 20 Inactive Lyrica 50 mg capsule RxNorm: 334169 Take 1 Capsule(s) Oral QAM every morning 05/14/20 20 Inactive Lyrica 100 mg capsule RxNorm: 075979 Take 1 Capsule(s) Oral QHS every night [...] Inactive Nystop 100,000 unit/gram topical powder RxNorm: 077305 Apply to abd folds, under breasts and L side of groin Topical BID x 14 days, then BID PRN 04/08/20 20 021 Inactive dx: yeast dermatitis Lyrica 100 mg capsule RxNorm: 719276 Take 1 Capsule(s) Oral QHS every night at bedtime 03/13/20 20 Inactive Lyrica 50 mg capsule RxNorm: 315486 Take 1 Capsule(s) Oral QAM every morning 03/13/20 20 10/28/2 020 Inactive ketoconazole 2 % shampoo RxNorm: 702086 Apply Topical two times a week with showers 03/11/20 Inactive cholecalciferol (vitamin D3) 50 mcg (2,000 unit) tablet RxNorm: 561673 Take 1 Tablet(s) Oral QD 03/11/20 Inactive Zetia 10 mg tablet RxNorm: 644284 Take 1 Tablet(s) Oral QD 03/07/20 Inactive Zetia 10 mg tablet RxNorm: 316537 Take 1 Tablet(s) Oral QD 03/07/20 Inactive Lyrica 50 mg capsule RxNorm: 045563 Take 1 Capsule(s) Oral QAM every morning 02/15/20 Inactive Lyrica 100 mg capsule RxNorm: 113217 Take 1 Capsule(s) Oral QHS every night at bedtime 02/15/20 Inactive Lyrica 100 mg capsule RxNorm: 970960 Take 1 Capsule(s) Oral QHS every night at bedtime 02/15/20 Inactive Lyrica 50 mg capsule RxNorm: 772488 Take 1 Capsule(s) Oral QAM every morning [...] CVX: 115 2008 Vital Signs Date Vital 10/29/2020 Respiratory Rate: 18 bpm Reason For Visit No Reason For Visit data Encounters Encounter Performer Location Location Address Codes Cristiano e ([id number]) DOMICIL VISIT EST CARLO Benitez Diagnosis: Candidiasis, intertrigo[ICD10: B37.2] Diagnosis: Scrotal skin lesion[ICD10: N50.9] Diagnosis: Secondary hypertension[ICD10: I15.9] Diagnosis: Inappropriate sexual behavior[ICD10: Z72.89]Sandra Hull [facility] [place], [place] [address]CWQ-4: [id number] Plan of Care Planned Activity Notes Codes Status Date Referral: [facility] WPtel: [address] [id number] USReferralRecords Ocfrcqsy11/08/2023Referral: [facility] WPtel: [address] [id number] CDZtwpoakbQgefhoqoh49/12/2022Referral: General CardiologyReferralCompleted 1Patient Education: Patient Medication WvimenhByugzglhe33/15/2021 Patient Education: Influenza DvwmujyGmoivldwx14/15/2021Referral: General PsychologistReferralClosed Instructions Comment Date Leonid is a Male being seen living at [facility]. Initial BPS visit 01/2020. PMHx including DMII, CAD w/ 5 stents, Depression, Seizure Disorder and CKD stage 3. He moved into [facility] in 12/2019 but after a hospitalization 05/2021 he moved to the [facility] to have closer nursing attention. Sister Jyotsna involved in his care cell# [phone] Guardian: Don (tapan met in person 09/01/21), now has Lexii (same group as don)Lab Schedule: Mar-/September* 10/06/2022 Inappropriate sexual behavio r Recommend conference - I am happy to attend.?? Recommend he and Tammy (facility nurse) speak with his lining caser regarding more appropriate accommodations with male staff.?? Candidiasis, intertrigo Improved. Monitor.?? Patient needs assistance with cares. His obesity and large pannus prevents him from doing good hygiene cares on his own. Recommend home sends over male staff and/or have two staff members present.?? Hypertension Increasing Lisinopril again?? Scrotal skin lesion Resolved.?? .10/29/2020
--- OUTSIDE RECORDS SUMMARY | 2020-11-03 18:00 | XMS_ITS | CCD ---
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 Sales Contract Administrator Name Role Phone Tapan Shirley PA-C Primary Care Provider Unavailabl e Tapan Shirley PA-C Chronic Care Management Unavaila ble Summary Purpose DataExchange Insurance Providers Payer name Policy type / Coverage type Covered alliance party ID Effective Begin Date Effective End Date Medicare [place] Medicare Part B [id number] Unknown Unknown Medicaid [place] Medicare Part B [id number] Unknown Unknown Family history Runs in the family Diagnosis Age At Onset No Known Diseases N/A Social History Social History Element Codes Description Effec tive Dates Living arrangements Unknown Intermediate 09/03/[address]: 1385987 Non-Smoker / No History of Smoking 09/02/[address]: 445648354 No Alcohol Consum ption 09/02/2020 Allergies, Adverse Reactions, Alerts Substance Reaction Codes Entered Date Inactivated Date Status LISINOPRIL RxNorm: 2599777No Inactive DateActiveMetformin KRtAfjxwrl77/28/2020No Inactive DateActive Problems Condition Codes Effective Dates Condition St atus Candidiasis, intertrigo ICD-10: B37.2 ICD-9: 112.306/ctiveInappropriate sexual behaviorICD-10: Z72.89 ICD-9: 312.8906/1ActiveScrotal skin lesionICD-10: N50.9 ICD-9: 608.906/1ActiveSecondary hypertensionICD-10: I15.9 ICD-9: 405.9906/1ActiveCellulitisICD-10: L03.90 ICD-9: 682.906/1ResolvedHistory of anemia due to CKDICD-10: N18.9 ICD-9: 585.905/ctiveHyperlipidemia associated with type 2 diabetes mellitusICD-10: E11.69 ICD-9: 250.8005ctiveStage 2 chronic kidney diseaseICD-10: N18.2 ICD-9: 585.205ctiveStage 2 chronic 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ICD-10: E11.22 ICD-9: 250.40010/01/2020ctiveType 2 diabetes mellitus with diabetic polyneuropathy, with long-term current use of insulinICD-10: E11.42 ICD-9: 250.6005ctiveAnemia due to stage 3b chronic kidney diseaseICD- 10: N18.32 ICD-9: 285.21010/01/2020esolvedCoronary artery disease involving [place] coronary artery of [place] heart, angina presence unspecifiedICD-10: I25.10 ICD-9: 414.01009/03/2020ctiveDepressionICD-10: F32.9 ICD-9: 84722/ctiveGout due to renal impairmentICD-10: M10.30 ICD-9: 274.1004ctiveLearning disabilityICD-10: F81.9 ICD-9: 315.204ctiveLong term (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 insulinICD-10: Z79.4 09/03/2020ctiveLower extremity edemaICD-10: R60.0 ICD-9: 782.304ctiveSeizure disorderICD-10: G40.909 ICD-9: 345.9004ctiveSkin tagICD-10: L91.8 ICD-9: 701.904ctiveVisit for preventive health examinationICD-10: Z00.00 ICD-9: V70.004ctiveVitamin D deficiencyICD-10: E55.9 ICD-9: 268.904ctiveChronic kidney disease, stage 3 unspecifiedICD-10: N18.3004esolvedDandruff in adultICD-10: L21.0 ICD-9: 690.18007/08/2020ctiveContact with and (suspected) exposure to other viral communicable diseasesICD-10: Z20.828 ICD-9: V01.7902/1ResolvedContact with and (suspected) exposure to covid-19 ICD-10: Z20.822 ICD-9: V01.79/1ActiveHyperhidrosis of palmsICD-10: L74.512 ICD-9: 705.5796XaeodbInihsutkPkmpdja49/28/2020ActiveDiabetes mellitus Type 8Fvkxbrp72/28/2020ActiveAnemia in chronic kidney diseaseICD-10: D63.1 02/12/2020ResolvedHyperlipidemia, unspecifiedICD-10: E78.Resolved Medications Medication Codes Instructions Start Date Stop Date Status Fill Instructions Blood Glucose Test strips RxNorm: Use 1 Test Strip QID at PRN 11/05/19 21 023 Inactive E11.42 lisinopril 30 mg tablet RxNorm: 396241 Take 1 Tablet(s) Oral QD 10/30/19 021 Inactive lisinopril 20 mg tablet RxNorm: 351313 Take 1 Tablet(s) Oral QD 10/23/19 21 021 Inactive lisinopril 20 mg tablet RxNorm: 455264 Take 1 Tablet(s) Oral QD 10/23/19 21 021 Inactive lisinopril 10 mg tablet RxNorm: 963265 Take 1 Tablet(s) Oral QD 10/02/19 21 021 Inactive icosapent ethyl 1 gram capsule RxNorm: 6532841 Take 2 Capsule(s) (2 gm) Oral BID with meals 09/12/19 022 Inactive Okay to dispense one 2gm tab if you have that available. icosapent ethyl 1 gram capsule RxNorm: 2631399 Take 2 Capsule(s) Oral BID 09/12/19 21 021 Inactive Okay to dispense one 2gm tab if you have that available. amlodipine 10 mg tablet RxNorm: 949787 Take 1 Tablet(s) Oral QD 09/04/19 21 022 Inactive aspirin 81 mg tablet,delayed release RxNorm: 000849 Take 1 Tablet(s) Oral QD 09/04/19 21 Inactive Levemir FlexTouch U-100 Insulin 100 unit/mL (3 mL) subcutaneous pen RxNorm: 771034 Inject 150 Unit(s) Subcutaneous BID 09/04/19 21 022 Inactive venlafaxine ER 150 mg tablet,extended release 24 hr RxNorm: 742889 Take 1 Tablet(s) Oral QD 09/04/19 Inactive clotrimazole-betame thasone 1 %-0.05 % topical cream RxNorm: 332314 Apply to rash on red area on left abdomen/chest Topical BID 08/10/19 21 Inactive amlodipine 5 mg tablet RxNorm: 419666 Take 1 Tablet(s) Oral QD 07/31/19 Inactive cephalexin 500 mg tablet RxNorm: 608587 Take 1 Tablet(s) Oral BID BID - Twice Daily 07/31/19 Inactive Start 08/01/20 pantoprazole 40 mg tablet,delayed release RxNorm: 322386 Take 1 Tablet(s) Oral QAM every morning 07/08/19 Inactive clopidogrel 75 mg tablet RxNorm: 229618 Take 1 Tablet(s) Oral QD 07/08/19 Inactive senna 8.6 mg tablet RxNorm: 300024 Take 1 Tablet(s) Oral QD 07/08/19 Inactive Novolog Flexpen U-100 Insulin aspart 100 unit/mL (3 mL) subcutaneous RxNorm: 1934734 Administer per sliding scale Milliliter(s) Subcutaneous TID 151-200: 10 u; 201-250: 20 u; 251-300: 30 u; 301-350: 40 u; 351-400: 50 u. 07/08/19 21 Inactive Novolog Flexpen U-100 Insulin aspart 100 unit/mL (3 mL) subcutaneous RxNorm: 8094835 Inject 85 Unit(s) Subcutaneous TID 07/08/19 022 Inactive pravastatin 80 mg tablet RxNorm: 628236 Take 1 Tablet(s) Oral QHS every night at bedtime 07/08/19 21 022 Inactive clotrimazole 1 % topical cream RxNorm: 342825 Apply to bilateral groin areas Topical BID 07/08/19 21 Inactive carbamazepine 200 mg tablet RxNorm: 737014 Take 1 Tablet(s) Oral BID 07/08/19 21 022 Inactive torsemide 20 mg tablet RxNorm: 204289 Take 1 Tablet(s) Oral QD 07/08/19 21 023 Inactive Blood Glucose Test strips RxNorm: Use 1 Test Strip QID at PRN 07/08/19 21 021 Inactive E11.42 lisinopril 5 mg tablet RxNorm: 407943 Take 1 Tablet(s) Oral QD 07/08/19 Inactive metoprolol succinate ER 200 mg tablet,extended release 24 hr RxNorm: 132080 Take 1 Tablet(s) Oral QD 07/08/19 021 Inactive Vitamin D3 25 mcg (1,000 unit) tablet RxNorm: 365453 Take 1 Tablet(s) Oral QD 07/08/19 021 Inactive isosorbide dinitrate 30 mg tablet RxNorm: 502482 Take 1 Tablet(s) Oral QD 07/08/19 021 Inactive Levemir FlexTouch U-100 Insulin 100 unit/mL (3 mL) subcutaneous pen RxNorm: 969112 Inject 140 Unit(s) Subcutaneous BID 07/08/19 021 Inactive venlafaxine 75 mg tablet RxNorm: 221485 Take 1 Tablet(s) Oral QD 07/08/19 021 Inactive acetaminophen 500 mg tablet RxNorm: 361833 Take 1 Tablet(s) Oral TID as needed for headache 06/18/19 Inactive acetaminophen 500 mg tablet RxNorm: 716949 Take 1 Tablet(s) Oral TID as needed for headache 06/18/19 021 Inactive Lyrica 100 mg capsule RxNorm: 215312 Take 1 Capsule(s) Oral QHS every night at bedtime 06/11/19 21 021 Inactive Lyrica 50 mg capsule RxNorm: 946535 Take 1 Capsule(s) Oral QAM every morning 06/10/19 21 021 Inactive hydrocortisone 2.5 % topical cream RxNorm: 852187 Apply to bilateral groin creases Topical BID 05/15/20 20 021 Inactive clotrimazole 1 % topical cream RxNorm: 000636 Apply to bilateral groin areas Topical BID 05/15/20 20 Inactive Lyrica 50 mg capsule RxNorm: 281318 Take 1 Capsule(s) Oral QAM every morning 05/14/20 20 020 Inactive Lyrica 100 mg capsule RxNorm: 748769 Take 1 Capsule(s) Oral QHS every night [...] Inactive Nystop 100,000 unit/gram topical powder RxNorm: 371910 Apply to abd folds, under breasts and L side of groin Topical BID x 14 days, then BID PRN 04/08/20 20 021 Inactive dx: yeast dermatitis Lyrica 100 mg capsule RxNorm: 311588 Take 1 Capsule(s) Oral QHS every night at bedtime 03/13/20 20 020 Inactive Lyrica 50 mg capsule RxNorm: 780253 Take 1 Capsule(s) Oral QAM every morning 03/13/20 20 Inactive ketoconazole 2 % shampoo RxNorm: 396140 Apply Topical two times a week with showers 03/11/20 Inactive cholecalciferol (vitamin D3) 50 mcg (2,000 unit) tablet RxNorm: 218961 Take 1 Tablet(s) Oral QD 03/11/20 Inactive Zetia 10 mg tablet RxNorm: 832934 Take 1 Tablet(s) Oral QD 03/07/20 Inactive Zetia 10 mg tablet RxNorm: 511225 Take 1 Tablet(s) Oral QD 03/07/20 Inactive Lyrica 50 mg capsule RxNorm: 940293 Take 1 Capsule(s) Oral QAM every morning 02/15/20 Inactive Lyrica 100 mg capsule RxNorm: 643413 Take 1 Capsule(s) Oral QHS every night at bedtime 02/15/20 Inactive Lyrica 100 mg capsule RxNorm: 714199 Take 1 Capsule(s) Oral QHS every night at bedtime 02/15/20 Inactive Lyrica 50 mg capsule RxNorm: 157211 Take 1 Capsule(s) Oral QAM every morning [...] Codes Status Date Referral: [facility] WPtel: [address] [place], [address] [id number] [place]erralRecords Ypzvrhaf76/08/2023Referral: [facility] WPtel: [address] [facility] [address] [id number] KHFuoptelnIpigzcrym39/12/2022Referral: General CardiologyReferralCompleted 1Referral: General PsychologistReferralClosed Instructions Comment Date Leonid is a Male being seen living at [facility]. Initial BPS visit 01/2020. PMHx including DMII, CAD w/ 5 stents, Depression, Seizure Disorder and CKD stage 3. He moved into [facility] in 12/2019 but after a hospitalization 05/2021 he [facility] to have [facility] nursing attention. Sister Jyotsna involved in his care cell# [phone] Guardian: Don (tapan met in person 09/01/21), now has Lexii (same group as don)Lab Schedule: * 10/06/2022
--- OUTSIDE RECORDS SUMMARY | 2020-11-13 18:00 | XMS_ITS | CCD ---
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 Floor Installer Name Role Phone Tapan Shirley PA-C Primary Care Provider Unavailabl e Tapan Shirley PA-C Chronic Care Management Unavaila ble Summary Purpose DataExchange Insurance Providers Payer name Policy type / Coverage type Covered constitution party ID Effective Begin Date Effective End Date Medicare [place] Medicare Part B [id number] Unknown Unknown Medicaid [place] Medicare Part B [id number] Unknown Unknown Family history Runs in the family Diagnosis Age At Onset No Known Diseases N/A Social History Social History Element Codes Description Effec tive Dates Living arrangements Unknown Longterm 09/03/[address]: 9488517 Non-Smoker / No History of Smoking 09/02/[address]: 366959231 No Alcohol Consum ption 09/02/2020 Allergies, Adverse Reactions, Alerts Substance Reaction Codes Entered Date Inactivated Date Status LISINOPRIL RxNorm: 6382030No Inactive DateActiveMetformin UOcIvkosmw22/28/2020No Inactive DateActive Problems Condition Codes Effective Dates [...] 10: N18.32 ICD-9: 285.21010/01/2020esolvedCoronary artery disease involving [place] coronary artery of [place] heart, angina presence unspecifiedICD-10: I25.10 ICD-9: 414.01009/03/2020ctiveDepressionICD-10: F32.9 ICD-9: 44323/ctiveGout due to renal impairmentICD-10: M10.30 ICD-9: 274.1004ctiveLearning [...] Z20.822 ICD-9: V01.791ActiveHyperhidrosis of palmsICD-10: L74.512 ICD-9: 705.7931WfexoeRupajofdQnxbcfk83/28/2020ActiveDiabetes mellitus Type 3Zobxnbx25/28/2020ActiveAnemia in chronic kidney diseaseICD-10: D63.1 02/12/2020ResolvedHyperlipidemia, unspecifiedICD-10: E78.Resolved Medications Medication Codes Instructions Start Date Stop Date Status Fill Instructions Accu-Chek Guide test strips RxNorm: USE 1 TO CHECK GLUCOSE 4 TIMES DAILY AND NEEDED 11/15/19 21 023 Inactive Blood Glucose Test strips RxNorm: Use 1 Test Strip QID at PRN 11/05/19 21 023 Inactive E11.42 lisinopril 30 mg tablet RxNorm: 213237 Take 1 Tablet(s) Oral QD 10/30/19 021 Inactive lisinopril 20 mg tablet RxNorm: 667995 Take 1 Tablet(s) Oral QD 10/23/19 21 021 Inactive lisinopril 20 mg tablet RxNorm: 013727 Take 1 Tablet(s) Oral QD 10/23/19 021 Inactive lisinopril 10 mg tablet RxNorm: 670322 Take 1 Tablet(s) Oral QD 10/02/19 021 Inactive icosapent ethyl 1 gram capsule RxNorm: 5567438 Take 2 Capsule(s) (2 gm) Oral BID with meals 09/12/19 022 Inactive Okay to dispense one 2gm tab if you have that available. icosapent ethyl 1 gram capsule RxNorm: 5820832 Take 2 Capsule(s) Oral BID 09/12/19 21 021 Inactive Okay to dispense one 2gm tab if you have that available. amlodipine 10 mg tablet RxNorm: 071921 Take 1 Tablet(s) Oral QD 09/04/19 022 Inactive aspirin 81 mg tablet,delayed release RxNorm: 298668 Take 1 Tablet(s) Oral QD 09/04/19 Inactive Levemir FlexTouch U-100 Insulin 100 unit/mL (3 mL) subcutaneous pen RxNorm: 009862 Inject 150 Unit(s) Subcutaneous BID 09/04/19 Inactive venlafaxine ER 150 mg tablet,extended release 24 hr RxNorm: 616314 Take 1 Tablet(s) Oral QD 09/04/19 Inactive clotrimazole-betame thasone 1 %-0.05 % topical cream RxNorm: 623472 Apply to rash on red area on left abdomen/chest Topical BID 08/10/19 21 Inactive amlodipine 5 mg tablet RxNorm: 926227 Take 1 Tablet(s) Oral QD 07/31/19 Inactive cephalexin 500 mg tablet RxNorm: 276772 Take 1 Tablet(s) Oral BID BID - Twice Daily 07/31/19 021 Inactive Start 08/01/20 pantoprazole 40 mg tablet,delayed release RxNorm: 018017 Take 1 Tablet(s) Oral QAM every morning 07/08/19 Inactive clopidogrel 75 mg tablet RxNorm: 110199 Take 1 Tablet(s) Oral QD 07/08/19 Inactive senna 8.6 mg tablet RxNorm: 331390 Take 1 Tablet(s) Oral QD 07/08/19 022 Inactive Novolog Flexpen U-100 Insulin aspart 100 unit/mL (3 mL) subcutaneous RxNorm: 7395818 Administer per sliding scale Milliliter(s) Subcutaneous TID 151-200: 10 u; 201-250: 20 u; 251-300: 30 u; 301-350: 40 u; 351-400: 50 u. 07/08/19 21 Inactive Novolog Flexpen U-100 Insulin aspart 100 unit/mL (3 mL) subcutaneous RxNorm: 0409779 Inject 85 Unit(s) Subcutaneous TID 07/08/19 022 Inactive pravastatin 80 mg tablet RxNorm: 546762 Take 1 Tablet(s) Oral QHS every night at bedtime 07/08/19 022 Inactive clotrimazole 1 % topical cream RxNorm: 407478 Apply to bilateral groin areas Topical BID 07/08/19 022 Inactive carbamazepine 200 mg tablet RxNorm: 236177 Take 1 Tablet(s) Oral BID 07/08/19 022 Inactive torsemide 20 mg tablet RxNorm: 327493 Take 1 Tablet(s) Oral QD 07/08/19 023 Inactive Blood Glucose Test strips RxNorm: Use 1 Test Strip QID at PRN 07/08/19 021 Inactive E11.42 lisinopril 5 mg tablet RxNorm: 719547 Take 1 Tablet(s) Oral QD 07/08/19 021 Inactive metoprolol succinate ER 200 mg tablet,extended release 24 hr RxNorm: 444491 Take 1 Tablet(s) Oral QD 07/08/19 021 Inactive Vitamin D3 25 mcg (1,000 unit) tablet RxNorm: 255878 Take 1 Tablet(s) Oral QD 07/08/19 021 Inactive isosorbide dinitrate 30 mg tablet RxNorm: 152765 Take 1 Tablet(s) Oral QD 07/08/19 021 Inactive Levemir FlexTouch U-100 Insulin 100 unit/mL (3 mL) subcutaneous pen RxNorm: 069245 Inject 140 Unit(s) Subcutaneous BID 07/08/19 021 Inactive venlafaxine 75 mg tablet RxNorm: 645972 Take 1 Tablet(s) Oral QD 07/08/19 021 Inactive acetaminophen 500 mg tablet RxNorm: 617928 Take 1 Tablet(s) Oral TID as needed for headache 06/18/19 021 Inactive acetaminophen 500 mg tablet RxNorm: 101363 Take 1 Tablet(s) Oral TID as needed for headache 06/18/19 021 Inactive Lyrica 100 mg capsule RxNorm: 461715 Take 1 Capsule(s) Oral QHS every night at bedtime 06/11/19 21 021 Inactive Lyrica 50 mg capsule RxNorm: 199439 Take 1 Capsule(s) Oral QAM every morning 06/10/19 21 021 Inactive hydrocortisone 2.5 % topical cream RxNorm: 494834 Apply to bilateral groin creases Topical BID 05/15/20 20 021 Inactive clotrimazole 1 % topical cream RxNorm: 968518 Apply to bilateral groin areas Topical BID 05/15/20 20 021 Inactive Lyrica 50 mg capsule RxNorm: 359841 Take 1 Capsule(s) Oral QAM every morning 05/14/20 20 Inactive Lyrica 100 mg capsule RxNorm: 746342 Take 1 Capsule(s) Oral QHS every night [...] Inactive Nystop 100,000 unit/gram topical powder RxNorm: 676584 Apply to abd folds, under breasts and L side of groin Topical BID x 14 days, then BID PRN 04/08/20 20 021 Inactive dx: yeast dermatitis Lyrica 100 mg capsule RxNorm: 227825 Take 1 Capsule(s) Oral QHS every night at bedtime 03/13/20 20 020 Inactive Lyrica 50 mg capsule RxNorm: 584386 Take 1 Capsule(s) Oral QAM every morning 03/13/20 Inactive ketoconazole 2 % shampoo RxNorm: 756031 Apply Topical two times a week with showers 03/11/20 Inactive cholecalciferol (vitamin D3) 50 mcg (2,000 unit) tablet RxNorm: 477527 Take 1 Tablet(s) Oral QD 03/11/20 Inactive Zetia 10 mg tablet RxNorm: 435466 Take 1 Tablet(s) Oral QD 03/07/20 Inactive Zetia 10 mg tablet RxNorm: 909545 Take 1 Tablet(s) Oral QD 03/07/20 Inactive Lyrica 50 mg capsule RxNorm: 476222 Take 1 Capsule(s) Oral QAM every morning 02/15/20 Inactive Lyrica 100 mg capsule RxNorm: 711604 Take 1 Capsule(s) Oral QHS every night at bedtime 02/15/20 Inactive Lyrica 100 mg capsule RxNorm: 622754 Take 1 Capsule(s) Oral QHS every night at bedtime 02/15/20 Inactive Lyrica 50 mg capsule RxNorm: 153891 Take 1 Capsule(s) Oral QAM every morning [...] Codes Status Date Referral: [facility] WPtel: [address], [address] [id number] [place]ReferralRecords Iolbntun87/08/2023Referral: [facility] WPtel: [address] [id number]/12/2022Referral: General CardiologyReferralCompleted 1Referral: General PsychologistReferralClosed Instructions Comment Date Leonid is a Male being seen living at [facility]. Initial BPS visit 01/2020. PMHx including DMII, CAD w/ 5 stents, Depression, Seizure Disorder and CKD stage 3. He moved into [facility] in 12/2019 but after a hospitalization 05/2021 he [facility] the [facility] medical [facility] to have closer nursing attention. Sister Jyotsna involved in his care cell# [phone] Guardian: Don (tapan met in person 09/01/21), now has Lexii (same group as don)Lab Schedule: * 10/06/2022
--- OUTSIDE RECORDS SUMMARY | 2020-12-02 18:00 | XMS_ITS | CCD ---
Author Name Sandra Mandujano CNP Address [address] [place] [address] Phone Organization [facility] Phone Care Team Providers Care Insert Molding Operator Name Role Phone Tapan Shirley PA-C Primary Care Provider Unavailabl e Tapan Shirley PA-C Chronic Care Management Unavaila ble Summary Purpose DataExchange Insurance Providers Payer name Policy type / Coverage type Covered libertarian ID Effective Begin Date Effective End Date Medicare [place] Medicare Part B [id number] Unknown Unknown Medicaid [place] Medicare Part B [id number] Unknown Unknown Family history Runs in the family Diagnosis Age At Onset No Known Diseases N/A Social History Social History Element Codes Description Effec tive Dates Living arrangements Unknown Snf 09/03/[address]: 3283445 Non-Smoker / No History of Smoking 09/02/[address]: 120303188 No Alcohol Consum ption 09/02/2020 Allergies, Adverse Reactions, Alerts Substance Reaction Codes Entered Date Inactivated Date Status LISINOPRIL RxNorm: 6587099No Inactive DateActiveMetformin TQzIcuqktz56/28/2020No Inactive DateActive Problems Condition Codes Effective Dates Condition St atus Callus of heel ICD-10: L84 ICD-9: 38354ctiveCoronary artery disease involving [place] coronary artery of [place] heart, angina presence unspecifiedICD-10: I25.10 ICD-9: 414.0107ctiveOther infective acute otitis externa of left ear ICD-10: H60.392 ICD-9: 380.1007ctiveTinea pedisICD-10: B35.3 ICD-9: 110.407ctiveCandidiasis, intertrigoICD-10: B37.2 ICD-9: 112.306ctiveInappropriate sexual behaviorICD-10: Z72.89 ICD-9: 312.8906ctiveScrotal skin lesionICD-10: N50.9 ICD-9: 608.90/ctiveSecondary hypertensionICD-10: I15.9 ICD-9: 405.9906ctiveCellulitisICD-10: L03.90 ICD-9: 682.9010/29/2020esolvedHistory of anemia due to CKDICD-10: N18.9 ICD-9: 585.ctiveHyperlipidemia associated with type 2 diabetes mellitusICD-10: E11.69 ICD-9: 250.80010/01/2020ctiveStage 2 chronic kidney diseaseICD-10: N18.2 ICD-9: 585.ctiveStage 2 chronic 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ICD-10: E11.22 ICD-9: 250.40010/01/2020ctiveType 2 diabetes mellitus with diabetic polyneuropathy, with long-term current use of insulinICD-10: E11.42 ICD-9: 250.6005ctiveAnemia due to stage 3b chronic kidney diseaseICD- 10: N18.32 ICD-9: 285.esolvedDepressionICD-10: F32.9 ICD-9: 91596ctiveGout due to renal impairmentICD-10: M10.30 ICD-9: 274.1004ctiveLearning disabilityICD-10: F81.9 ICD-9: 315.204ctiveLong term (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 insulinICD-10: Z79.4 09/03/2020ctiveLower extremity edemaICD-10: R60.0 ICD-9: 782.304ctiveSeizure disorderICD-10: G40.909 ICD-9: 345.9004ctiveSkin tagICD-10: L91.8 ICD-9: 701.9009/03/2020ctiveVisit for preventive health examinationICD-10: Z00.00 ICD-9: V70.004/1ActiveVitamin D deficiencyICD-10: E55.9 ICD-9: 268.904ctiveChronic kidney disease, stage 3 unspecifiedICD-10: N18.3004esolvedDandruff in adultICD-10: L21.0 ICD-9: 690.18007/08/2020ctiveContact with and (suspected) exposure to other viral communicable diseasesICD-10: Z20.828 ICD-9: V01.7902esolvedContact with and (suspected) exposure to covid-19 ICD-10: Z20.822 ICD-9: V01.7906/20/2020ctiveHyperhidrosis of palmsICD-10: L74.512 ICD-9: 705.0484HrnpoaItffdhoiGgrqajv11/28/2020ActiveDiabetes mellitus Type 7Ugfyaxf93/28/2020ActiveAnemia in chronic kidney diseaseICD-10: D63.1 02/12/2020ResolvedHyperlipidemia, unspecifiedICD-10: E78.509Resolved Medications Medication Codes Instructions Start Date Stop Date Status Fill Instructions clotrimazole 1 % topical cream RxNorm: 234451 Apply to right foot and toes Topical BID 12/04/19 21 023 Inactive metoprolol succinate ER 200 mg tablet,extended release 24 hr RxNorm: 076472 Take 1 Tablet(s) Oral QD 12/04/19 21 023 Inactive ciprofloxacin 500 mg tablet RxNorm: 594967 Take 1 Tablet(s) Oral QD 11/30/19 21 021 Inactive DX ofloxacin otic drops Accu-Chek Guide test strips RxNorm: USE 1 TO CHECK GLUCOSE 4 TIMES DAILY AND NEEDED 11/15/19 21 023 Inactive Blood Glucose Test strips RxNorm: Use 1 Test Strip QID at PRN 11/05/19 21 023 Inactive E11.42 lisinopril 30 mg tablet RxNorm: 901214 Take 1 Tablet(s) Oral QD 10/30/19 Inactive lisinopril 20 mg tablet RxNorm: 739901 Take 1 Tablet(s) Oral QD 10/23/19 21 Inactive lisinopril 20 mg tablet RxNorm: 666293 Take 1 Tablet(s) Oral QD 10/23/19 21 021 Inactive lisinopril 10 mg tablet RxNorm: 157158 Take 1 Tablet(s) Oral QD 10/02/19 Inactive icosapent ethyl 1 gram capsule RxNorm: 3418126 Take 2 Capsule(s) (2 gm) Oral BID with meals 09/12/19 Inactive Okay to dispense one 2gm tab if you have that available. icosapent ethyl 1 gram capsule RxNorm: 0469663 Take 2 Capsule(s) Oral BID 09/12/19 021 Inactive Okay to dispense one 2gm tab if you have that available. amlodipine 10 mg tablet RxNorm: 911122 Take 1 Tablet(s) Oral QD 09/04/19 022 Inactive aspirin 81 mg tablet,delayed release RxNorm: 353702 Take 1 Tablet(s) Oral QD 09/04/19 21 Inactive Levemir FlexTouch U-100 Insulin 100 unit/mL (3 mL) subcutaneous pen RxNorm: 199960 Inject 150 Unit(s) Subcutaneous BID 09/04/19 Inactive venlafaxine ER 150 mg tablet,extended release 24 hr RxNorm: 368740 Take 1 Tablet(s) Oral QD 09/04/19 21 Inactive clotrimazole-betame thasone 1 %-0.05 % topical cream RxNorm: 304424 Apply to rash on red area on left abdomen/chest Topical BID 08/10/19 21 Inactive amlodipine 5 mg tablet RxNorm: 607613 Take 1 Tablet(s) Oral QD 07/31/19 21 Inactive cephalexin 500 mg tablet RxNorm: 456078 Take 1 Tablet(s) Oral BID BID - Twice Daily 07/31/19 21 03/20/2 021 Inactive Start 08/01/20 pantoprazole 40 mg tablet,delayed release RxNorm: 216329 Take 1 Tablet(s) Oral QAM every morning 07/08/19 022 Inactive clopidogrel 75 mg tablet RxNorm: 132924 Take 1 Tablet(s) Oral QD 07/08/19 021 Inactive senna 8.6 mg tablet RxNorm: 843046 Take 1 Tablet(s) Oral QD 07/08/19 022 Inactive Novolog Flexpen U-100 Insulin aspart 100 unit/mL (3 mL) subcutaneous RxNorm: 8080587 Administer per sliding scale Milliliter(s) Subcutaneous TID 151-200: 10 u; 201-250: 20 u; 251-300: 30 u; 301-350: 40 u; 351-400: 50 u. 07/08/19 Inactive Novolog Flexpen U-100 Insulin aspart 100 unit/mL (3 mL) subcutaneous RxNorm: 5086707 Inject 85 Unit(s) Subcutaneous TID 07/08/19 022 Inactive pravastatin 80 mg tablet RxNorm: 635141 Take 1 Tablet(s) Oral QHS every night at bedtime 07/08/19 022 Inactive clotrimazole 1 % topical cream RxNorm: 922183 Apply to bilateral groin areas Topical BID 07/08/19 022 Inactive carbamazepine 200 mg tablet RxNorm: 137660 Take 1 Tablet(s) Oral BID 07/08/19 022 Inactive torsemide 20 mg tablet RxNorm: 487522 Take 1 Tablet(s) Oral QD 07/08/19 023 Inactive Blood Glucose Test strips RxNorm: Use 1 Test Strip QID at PRN 07/08/19 021 Inactive E11.42 lisinopril 5 mg tablet RxNorm: 590096 Take 1 Tablet(s) Oral QD 07/08/19 021 Inactive metoprolol succinate ER 200 mg tablet,extended release 24 hr RxNorm: 944021 Take 1 Tablet(s) Oral QD 07/08/19 021 Inactive Vitamin D3 25 mcg (1,000 unit) tablet RxNorm: 069395 Take 1 Tablet(s) Oral QD 07/08/19 Inactive isosorbide dinitrate 30 mg tablet RxNorm: 582092 Take 1 Tablet(s) Oral QD 07/08/19 Inactive Levemir FlexTouch U-100 Insulin 100 unit/mL (3 mL) subcutaneous pen RxNorm: 259407 Inject 140 Unit(s) Subcutaneous BID 07/08/19 Inactive venlafaxine 75 mg tablet RxNorm: 103551 Take 1 Tablet(s) Oral QD 07/08/19 Inactive acetaminophen 500 mg tablet RxNorm: 341261 Take 1 Tablet(s) Oral TID as needed for headache 06/18/19 Inactive acetaminophen 500 mg tablet RxNorm: 438038 Take 1 Tablet(s) Oral TID as needed for headache 06/18/19 Inactive Lyrica 100 mg capsule RxNorm: 487025 Take 1 Capsule(s) Oral QHS every night at bedtime 06/11/19 021 Inactive Lyrica 50 mg capsule RxNorm: 803119 Take 1 Capsule(s) Oral QAM every morning 06/10/19 Inactive hydrocortisone 2.5 % topical cream RxNorm: 565133 Apply to bilateral groin creases Topical BID 05/15/20 20 021 Inactive clotrimazole 1 % topical cream RxNorm: 982967 Apply to bilateral groin areas Topical BID 05/15/20 20 021 Inactive Lyrica 50 mg capsule RxNorm: 080902 Take 1 Capsule(s) Oral QAM every morning 05/14/20 20 Inactive Lyrica 100 mg capsule RxNorm: 937702 Take 1 Capsule(s) Oral QHS every night [...] Inactive Nystop 100,000 unit/gram topical powder RxNorm: 807685 Apply to abd folds, under breasts and L side of groin Topical BID x 14 days, then BID PRN 04/08/20 20 Inactive dx: yeast dermatitis Lyrica 100 mg capsule RxNorm: 889975 Take 1 Capsule(s) Oral QHS every night at bedtime 03/13/20 20 Inactive Lyrica 50 mg capsule RxNorm: 992951 Take 1 Capsule(s) Oral QAM every morning 03/13/20 20 Inactive ketoconazole 2 % shampoo RxNorm: 544393 Apply Topical two times a week with showers 03/11/20 20 Inactive cholecalciferol (vitamin D3) 50 mcg (2,000 unit) tablet RxNorm: 081412 Take 1 Tablet(s) Oral QD 03/11/20 20 021 Inactive Zetia 10 mg tablet RxNorm: 031487 Take 1 Tablet(s) Oral QD 03/07/20 20 021 Inactive Zetia 10 mg tablet RxNorm: 529473 Take 1 Tablet(s) Oral QD 03/07/20 20 Inactive Lyrica 50 mg capsule RxNorm: 397318 Take 1 Capsule(s) Oral QAM every morning 02/15/20 20 Inactive Lyrica 100 mg capsule RxNorm: 403712 Take 1 Capsule(s) Oral QHS every night at bedtime 02/15/20 20 Inactive Lyrica 100 mg capsule RxNorm: 645133 Take 1 Capsule(s) Oral QHS every night at bedtime 02/15/20 Inactive Lyrica 50 mg capsule RxNorm: 331560 Take 1 Capsule(s) Oral QAM every morning [...] Codes Status Date Referral: [facility] WPtel: [address], [address] [id number] [place]ReferralRecords Nmjjqibn12/08/2023Referral: [facility] WPtel: [address] [id number] KOLvcmtkstWeusdixmy33/12/2022Referral: General CardiologyReferralCompleted 1Patient Education: Patient Medication AlqohppDrogxtznh42/20/2021 Referral: General PsychologistReferralClosed Instructions Comment Date Leonid is a Male being seen living at [facility]. Initial BPS visit 01/2020. PMHx including DMII, CAD w/ 5 stents, Depression, Seizure Disorder and CKD stage 3. He moved into [facility] in 12/2019 but after a hospitalization 05/2021 he moved to the [facility] to have closer nursing attention. Sister Jyotsna involved in his care cell# [phone] Guardian: Don (tapan met in person 09/01/21), now has Lexii (same group as don)Lab Schedule: * 10/06/2022
--- OUTSIDE RECORDS SUMMARY | 2020-12-04 18:00 | XMS_ITS | CCD ---
Author Name Sandra Mandujano CNP Address [address] [facility] [address] [place] [address] Phone Organization [facility] Phone Care Team Providers Care Art Dealer Name Role Phone Tapan Shirley PA-C Primary Care Provider Unavailabl e Tapan Shirley PA-C Chronic Care Management Unavaila ble Summary Purpose DataExchange Insurance Providers Payer name Policy type / Coverage type Covered alliance party ID Effective Begin Date Effective End Date Medicare [place] Medicare Part B [id number] Unknown Unknown Medicaid [place] Medicare Part B [id number] Unknown Unknown Family history Runs in the family Diagnosis Age At Onset No Known Diseases N/A Social History Social History Element Codes Description Effec tive Dates Living arrangements Unknown Jail 09/03/[address]: 6271034 Non-Smoker / No History of Smoking 09/02/[address]: 412842934 No Alcohol Consum ption 09/02/2020 Allergies, Adverse Reactions, Alerts Substance Reaction Codes Entered Date Inactivated Date Status LISINOPRIL RxNorm: 5487681No Inactive DateActiveMetformin XXcDgajtgg04/28/2020No Inactive DateActive Problems Condition Codes Effective Dates Condition St atus Callus of heel ICD-10: L84 ICD-9: 83567ctiveCoronary artery disease involving [place] coronary artery of [place] heart, angina presence unspecifiedICD-10: I25.10 ICD-9: 414.0107ctiveOther [...] diseaseICD- 10: N18.32 ICD-9: 285.esolvedDepressionICD-10: F32.9 ICD-9: 39441ctiveGout due to renal impairmentICD-10: M10.30 ICD-9: 274.1004ctiveLearning [...] Z20.822 ICD-9: V01.7906/20/2020ctiveHyperhidrosis of palmsICD-10: L74.512 ICD-9: 705.0647JufeubAfqampbwWwwieab67/28/2020ActiveDiabetes mellitus Type 1Xijlnfi94/28/2020ActiveAnemia in chronic kidney diseaseICD-10: D63.1 02/12/2020ResolvedHyperlipidemia, unspecifiedICD-10: E78.509Resolved Medications Medication Codes Instructions Start Date Stop Date Status Fill Instructions clotrimazole 1 % topical cream RxNorm: 241573 Apply to right foot and toes Topical BID 12/04/19 21 023 Inactive metoprolol succinate ER 200 mg tablet,extended release 24 hr RxNorm: 914476 Take 1 Tablet(s) Oral QD 12/04/19 21 023 Inactive ciprofloxacin 500 mg tablet RxNorm: 592192 Take 1 Tablet(s) Oral QD 11/30/19 21 021 Inactive DX ofloxacin otic drops Accu-Chek Guide test strips RxNorm: USE 1 TO CHECK GLUCOSE 4 TIMES DAILY AND NEEDED 11/15/19 21 023 Inactive Blood Glucose Test strips RxNorm: Use 1 Test Strip QID at PRN 11/05/19 21 023 Inactive E11.42 lisinopril 30 mg tablet RxNorm: 301749 Take 1 Tablet(s) Oral QD 10/30/19 Inactive lisinopril 20 mg tablet RxNorm: 257076 Take 1 Tablet(s) Oral QD 10/23/19 21 Inactive lisinopril 20 mg tablet RxNorm: 944268 Take 1 Tablet(s) Oral QD 10/23/19 21 021 Inactive lisinopril 10 mg tablet RxNorm: 707873 Take 1 Tablet(s) Oral QD 10/02/19 Inactive icosapent ethyl 1 gram capsule RxNorm: 4281966 Take 2 Capsule(s) (2 gm) Oral BID with meals 09/12/19 Inactive Okay to dispense one 2gm tab if you have that available. icosapent ethyl 1 gram capsule RxNorm: 8106896 Take 2 Capsule(s) Oral BID 09/12/19 021 Inactive Okay to dispense one 2gm tab if you have that available. amlodipine 10 mg tablet RxNorm: 048498 Take 1 Tablet(s) Oral QD 09/04/19 022 Inactive aspirin 81 mg tablet,delayed release RxNorm: 217139 Take 1 Tablet(s) Oral QD 09/04/19 21 Inactive Levemir FlexTouch U-100 Insulin 100 unit/mL (3 mL) subcutaneous pen RxNorm: 998748 Inject 150 Unit(s) Subcutaneous BID 09/04/19 Inactive venlafaxine ER 150 mg tablet,extended release 24 hr RxNorm: 518898 Take 1 Tablet(s) Oral QD 09/04/19 21 Inactive clotrimazole-betame thasone 1 %-0.05 % topical cream RxNorm: 394104 Apply to rash on red area on left abdomen/chest Topical BID 08/10/19 21 Inactive amlodipine 5 mg tablet RxNorm: 321948 Take 1 Tablet(s) Oral QD 07/31/19 21 Inactive cephalexin 500 mg tablet RxNorm: 772016 Take 1 Tablet(s) Oral BID BID - Twice Daily 07/31/19 21 03/20/2 021 Inactive Start 08/01/20 pantoprazole 40 mg tablet,delayed release RxNorm: 101476 Take 1 Tablet(s) Oral QAM every morning 07/08/19 022 Inactive clopidogrel 75 mg tablet RxNorm: 080727 Take 1 Tablet(s) Oral QD 07/08/19 021 Inactive senna 8.6 mg tablet RxNorm: 982454 Take 1 Tablet(s) Oral QD 07/08/19 022 Inactive Novolog Flexpen U-100 Insulin aspart 100 unit/mL (3 mL) subcutaneous RxNorm: 7144616 Administer per sliding scale Milliliter(s) Subcutaneous TID 151-200: 10 u; 201-250: 20 u; 251-300: 30 u; 301-350: 40 u; 351-400: 50 u. 07/08/19 Inactive Novolog Flexpen U-100 Insulin aspart 100 unit/mL (3 mL) subcutaneous RxNorm: 1363044 Inject 85 Unit(s) Subcutaneous TID 07/08/19 022 Inactive pravastatin 80 mg tablet RxNorm: 859276 Take 1 Tablet(s) Oral QHS every night at bedtime 07/08/19 022 Inactive clotrimazole 1 % topical cream RxNorm: 109543 Apply to bilateral groin areas Topical BID 07/08/19 022 Inactive carbamazepine 200 mg tablet RxNorm: 189930 Take 1 Tablet(s) Oral BID 07/08/19 022 Inactive torsemide 20 mg tablet RxNorm: 111811 Take 1 Tablet(s) Oral QD 07/08/19 023 Inactive Blood Glucose Test strips RxNorm: Use 1 Test Strip QID at PRN 07/08/19 021 Inactive E11.42 lisinopril 5 mg tablet RxNorm: 470538 Take 1 Tablet(s) Oral QD 07/08/19 021 Inactive metoprolol succinate ER 200 mg tablet,extended release 24 hr RxNorm: 482037 Take 1 Tablet(s) Oral QD 07/08/19 021 Inactive Vitamin D3 25 mcg (1,000 unit) tablet RxNorm: 667785 Take 1 Tablet(s) Oral QD 07/08/19 Inactive isosorbide dinitrate 30 mg tablet RxNorm: 705161 Take 1 Tablet(s) Oral QD 07/08/19 Inactive Levemir FlexTouch U-100 Insulin 100 unit/mL (3 mL) subcutaneous pen RxNorm: 022815 Inject 140 Unit(s) Subcutaneous BID 07/08/19 Inactive venlafaxine 75 mg tablet RxNorm: 792973 Take 1 Tablet(s) Oral QD 07/08/19 Inactive acetaminophen 500 mg tablet RxNorm: 563528 Take 1 Tablet(s) Oral TID as needed for headache 06/18/19 Inactive acetaminophen 500 mg tablet RxNorm: 337777 Take 1 Tablet(s) Oral TID as needed for headache 06/18/19 Inactive Lyrica 100 mg capsule RxNorm: 679411 Take 1 Capsule(s) Oral QHS every night at bedtime 06/11/19 021 Inactive Lyrica 50 mg capsule RxNorm: 210743 Take 1 Capsule(s) Oral QAM every morning 06/10/19 Inactive hydrocortisone 2.5 % topical cream RxNorm: 227007 Apply to bilateral groin creases Topical BID 05/15/20 20 021 Inactive clotrimazole 1 % topical cream RxNorm: 136298 Apply to bilateral groin areas Topical BID 05/15/20 20 021 Inactive Lyrica 50 mg capsule RxNorm: 189487 Take 1 Capsule(s) Oral QAM every morning 05/14/20 20 Inactive Lyrica 100 mg capsule RxNorm: 626262 Take 1 Capsule(s) Oral QHS every night [...] Inactive Nystop 100,000 unit/gram topical powder RxNorm: 683801 Apply to abd folds, under breasts and L side of groin Topical BID x 14 days, then BID PRN 04/08/20 20 Inactive dx: yeast dermatitis Lyrica 100 mg capsule RxNorm: 155924 Take 1 Capsule(s) Oral QHS every night at bedtime 03/13/20 20 Inactive Lyrica 50 mg capsule RxNorm: 277430 Take 1 Capsule(s) Oral QAM every morning 03/13/20 20 Inactive ketoconazole 2 % shampoo RxNorm: 297740 Apply Topical two times a week with showers 03/11/20 20 Inactive cholecalciferol (vitamin D3) 50 mcg (2,000 unit) tablet RxNorm: 829963 Take 1 Tablet(s) Oral QD 03/11/20 20 021 Inactive Zetia 10 mg tablet RxNorm: 780787 Take 1 Tablet(s) Oral QD 03/07/20 20 021 Inactive Zetia 10 mg tablet RxNorm: 243759 Take 1 Tablet(s) Oral QD 03/07/20 20 Inactive Lyrica 50 mg capsule RxNorm: 885572 Take 1 Capsule(s) Oral QAM every morning 02/15/20 20 Inactive Lyrica 100 mg capsule RxNorm: 343893 Take 1 Capsule(s) Oral QHS every night at bedtime 02/15/20 20 Inactive Lyrica 100 mg capsule RxNorm: 781834 Take 1 Capsule(s) Oral QHS every night at bedtime 02/15/20 Inactive Lyrica 50 mg capsule RxNorm: 178304 Take 1 Capsule(s) Oral QAM every morning [...] BP > OR = 140 CPT-4: G8753 12/03/2020 CUI BP LESS 90 CPT-4: G8754 12/03/2020 Vital Signs Date Vital 12/03/2020 Blood Pressure 1: 157/84 Code: 8480-6 Heart Rate 1: 65 bpm Code: 8867-4 Temperature: 36.8 (C) / 98.2 (F) Weight: 404 lbs 6 oz Code: 3141-9 Reason For Visit No Reason For Visit data Encounters Encounter Performer Location Location Address Codes Cristiano e ([id number]) DOMICIL VISIT EST PA T Diagnosis: Other infective acute otitis externa of left ear[ICD10: H60.392] Diagnosis: Coronary artery disease involving [place] coronary artery of [place] heart, angina presence unspecified[ICD10: I25.10] Diagnosis: Tinea pedis[ICD10: B35.3] Diagnosis: Callus of heel[ICD10: L84]Sandra Fay [id number] [place], [place] [address]VKF-8: [id number]/ Plan of Care Planned Activity Notes Codes Status Date Referral: [facility] WPtel: [address], [address] [id number] USReferralRecords Nteyucnt92/08/2023Referral: [facility] WPtel: [address] [id number] UKMyujkvfoWmeutqblp58/12/2022Referral: General CardiologyReferralCompleted 1Patient Education: Patient Medication VbdvvesQfbtjhkpt03/20/2021 Patient Education: Influenza IggqlejGanbmcjmw98/20/2021Referral: General PsychologistReferralClosed Instructions Comment Date Leonid is a Male being seen living at [facility]. Initial BPS visit 01/2020. PMHx including DMII, CAD w/ 5 stents, Depression, Seizure Disorder and CKD stage 3. He moved into [facility] in 12/2019 but after a hospitalization 05/2021 he moved to the [facility] to have closer nursing attention. Sister Jyotsna involved in his care cell# [phone] Guardian: Don (atpan met in person 09/01/21), now has Lexii (same group as don)Lab Schedule: * 10/06/2022 Callus of heel Once treatment for tinea pedis is done, soak the foot three days per week and then file the heel.?? Ischemic Heart Disease Requesting recent ER visit note Recommend cardiac stress test.?? Refer: Cardiology?? Tinea pedis Clotrimazole cream to right foot BID then do foot soak for callus.?? Other infective acute otitis externa of left ear Continue current treatments.?? .12/03/2020
--- OUTSIDE RECORDS SUMMARY | 2020-12-22 18:00 | XMS_ITS | CCD ---
Author Name Akhil Guerrero MD Address [address] [place] [address] Phone Organization [facility] Phone Care Team Providers Care Label Drier Name Role Phone Rosalina Shirley PA-C Primary Care Provider Unavailabl e Rosalina Shirley PA-C Chronic Care Management Unavaila ble Summary Purpose DataExchange Insurance Providers Payer name Policy type / Coverage type Covered democrat ID Effective Begin Date Effective End Date Medicare [place] Medicare Part B [id number] Unknown Unknown Medicaid [place] Medicare Part B [id number] Unknown Unknown Family History Family History data not found Allergies, Adverse Reactions, Alerts Substance Reaction Codes Entered Date Inactivated Date Status LISINOPRIL RxNorm: 3746846No Inactive DateActiveMetformin JCgFgoawmz14/28/2020No Inactive DateActive Problems Condition Codes Effective Dates Condition St atus Contact with and (suspected) exposure to covid-19 ICD-10: Z20.822 ICD-9: V01.7902ctiveCandidiasis, intertrigoICD-10: B37.2 ICD-9: 112.301ctiveCKD stage 3 due to type 2 diabetes mellitusICD-10: E11.22 ICD-9: 250.40006/10/2020ctiveGout due to renal impairmentICD-10: M10.30 ICD-9: 274.1001ctiveHyperlipidemia associated with type 2 diabetes mellitusICD-10: E11.69 ICD-9: 250.80006/10/2020ctiveLearning disabilityICD-10: F81.9 ICD-9: 315.201ctiveType 2 diabetes mellitus with diabetic polyneuropathy, with long-term current use of insulinICD-10: E11.42 ICD-9: 250.6001/25/2021ActiveContact with and (suspected) exposure to other viral communicable diseasesICD-10: Z20.828 ICD-9: V01.79011ActiveHyperhidrosis of palmsICD-10: L74.512 ICD-9: 705.ActiveLong term (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 insulinICD-10: Z79.4 05/15/2020ActiveLower extremity edemaICD-10: R60.0 ICD-9: 782.ActiveDandruff in adultICD-10: L21.0 ICD-9: 690.18109651ZrxicyPjcymzdqMnmeuds07/28/2020ActiveDiabetes mellitus Type 9Klrirjq67/28/2020ActiveAnemia due to stage 3b chronic kidney diseaseICD- 10: N18.32 ICD-9: 285.2109ActiveChronic kidney disease, stage 3 unspecifiedICD-10: N18.30002/12/2020ActiveCoronary artery disease involving [place] coronary artery of [place] heart, angina presence unspecifiedICD-10: I25.10 ICD-9: 414.0109ActiveDepressionICD-10: F32.9 ICD-9: 56969ActiveSecondary hypertensionICD-10: I15.9 ICD-9: 405.9909ActiveSeizure disorderICD-10: G40.909 ICD-9: 345.9009ActiveVitamin D deficiencyICD-10: E55.9 ICD-9: 268.909ActiveAnemia in chronic kidney diseaseICD-10: D63.1 02/12/2020ResolvedHyperlipidemia, unspecifiedICD-10: E78.509Resolved Medications Medication Codes Instructions Start Date Stop Date Status Fill Instructions acetaminophen 500 mg tablet RxNorm: 569309 Take 1 Tablet(s) Oral TID as needed for headache 1 021 Inactive acetaminophen 500 mg tablet RxNorm: Take 1 Tablet(s) Oral TID as needed for headache 1 021 Inactive Lyrica 100 mg capsule RxNorm: 985997 Take 1 Capsule(s) Oral QHS every night at bedtime 1 021 Inactive Lyrica 50 mg capsule RxNorm: 676198 Take 1 Capsule(s) Oral QAM every morning 1 021 Inactive hydrocortisone 2.5 % topical cream RxNorm: 369895 Apply to bilateral groin creases Topical BID 0 021 Inactive clotrimazole 1 % topical cream RxNorm: 016820 Apply to bilateral groin areas Topical BID 0 021 Inactive Lyrica 50 mg capsule RxNorm: 360415 Take 1 Capsule(s) Oral QAM every morning 0 020 Inactive Lyrica 100 mg capsule RxNorm: 712580 Take 1 Capsule(s) Oral QHS every night [...] Inactive Nystop 100,000 unit/gram topical powder RxNorm: 394716 Apply to abd folds, under breasts and L side of groin Topical BID x 14 days, then BID PRN 0 021 Inactive dx: yeast dermatitis Lyrica 100 mg capsule RxNorm: 804754 Take 1 Capsule(s) Oral QHS every night at bedtime 0 10/28/2 020 Inactive Lyrica 50 mg capsule RxNorm: 452715 Take 1 Capsule(s) Oral QAM every morning 0 Inactive ketoconazole 2 % shampoo RxNorm: 309454 Apply Topical two times a week with showers 0 Inactive cholecalciferol (vitamin D3) 50 mcg (2,000 unit) tablet RxNorm: 053293 Take 1 Tablet(s) Oral QD 0 Inactive Zetia 10 mg tablet RxNorm: 365480 Take 1 Tablet(s) Oral QD 0 Inactive Zetia 10 mg tablet RxNorm: 158281 Take 1 Tablet(s) Oral QD 0 Inactive Lyrica 50 mg capsule RxNorm: 049208 Take 1 Capsule(s) Oral QAM every morning 0 Inactive Lyrica 100 mg capsule RxNorm: 312904 Take 1 Capsule(s) Oral QHS every night at bedtime 0 Inactive Lyrica 100 mg capsule RxNorm: 803052 Take 1 Capsule(s) Oral QHS every night at bedtime 0 Inactive Lyrica 50 mg capsule RxNorm: 208140 Take 1 Capsule(s) Oral QAM every morning [...] Encounters Encounter Performer Location Location Address Codes [facility] e [phone] EST. PATIENT, LEVEL I w/ CS modifier Diagnosis: Contact with and (suspected) exposure to covid-19[ICD10: Z20.822][facility] [place], [place] [address]CAI-0: [id number] 06/20/2020 Plan of Care Planned Activity Notes Codes Status Date Referral: [facility] WPtel: [address] [id number] USReferralRecords Dinnqode95/08/2023Referral: [facility] WPtel: [address] [id number] VAQezbwiaxXxiffyove03/12/2022eferral: General CardiologyReferralCompleted 01/03/2021eferral: General PsychologistReferralClosed Instructions Comment Date Leonid is a Male being seen living at The [facility]. Initial BPS visit 01/2020. PMHx including DMII, CAD w/ 5 stents, Depression, Seizure Disorder and CKD stage 3. He moved into The [facility] in 12/2019 but after a hospitalization 05/2021 he moved to the [facility] to have closer nursing attention. Sister Jyotsna involved in his care cell# [phone] Guardian: Don (rosalina met in person 09/01/21), now has Lexii (same group as don)Lab Schedule: * 10/06/2022
--- OUTSIDE RECORDS SUMMARY | 2020-12-23 18:00 | XMS_ITS | CCD ---
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 Academic Manager Name Role Phone Tapan Shirley PA-C Primary Care Provider Unavailabl e Tapan Shirley PA-C Chronic Care Management Unavaila ble Summary Purpose DataExchange Insurance Providers Payer name Policy type / Coverage type Covered green party ID Effective Begin Date Effective End Date Medicare [place] Medicare Part B [id number] Unknown Unknown Medicaid [place] Medicare Part B [id number] Unknown Unknown Family history Runs in the family Diagnosis Age At Onset No Known Diseases N/A Social History Social History Element Codes Description Effec tive Dates Living arrangements Unknown Jail 09/03/[address]: 0819195 Non-Smoker / No History of Smoking 09/02/[address]: 351743608 No Alcohol Consum ption 09/02/2020 Allergies, Adverse Reactions, Alerts Substance Reaction Codes Entered Date Inactivated Date Status LISINOPRIL RxNorm: 6411828No Inactive DateActiveMetformin WHtFtrmlbi63/28/2020No Inactive DateActive Problems Condition Codes Effective Dates Condition St atus Callus of heel ICD-10: L84 ICD-9: 62504ctiveCoronary artery disease involving [place] coronary artery of [place] heart, angina presence unspecifiedICD-10: I25.10 ICD-9: 414.01071ActiveOther infective acute otitis externa of left ear ICD-10: H60.392 ICD-9: 380.1007ctiveTinea pedisICD-10: B35.3 ICD-9: 110.407ctiveCandidiasis, intertrigoICD-10: B37.2 ICD-9: 112.306/ctiveInappropriate sexual behaviorICD-10: Z72.89 ICD-9: 312.8906ctiveScrotal skin lesionICD-10: N50.9 ICD-9: 608.906/ctiveSecondary hypertensionICD-10: I15.9 ICD-9: 405.9906/ctiveCellulitisICD-10: L03.90 ICD-9: 682.906esolvedHistory of anemia due to [...] 3b chronic kidney diseaseICD- 10: N18.32 ICD-9: 285.21010/01/2020esolvedDepressionICD-10: F32.9 ICD-9: 53370/ctiveGout due to renal impairmentICD-10: M10.30 ICD-9: 274.1004ctiveLearning disabilityICD-10: F81.9 ICD-9: 315.204ctiveLong term (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 insulinICD-10: Z79.4 04ctiveLower extremity edemaICD-10: R60.0 ICD-9: 782.304ctiveSeizure disorderICD-10: G40.909 ICD-9: 345.9004ctiveSkin tagICD-10: L91.8 ICD-9: 701.9009/03/2020ctiveVisit for preventive health examinationICD-10: Z00.00 ICD-9: V70.004/ctiveVitamin D deficiencyICD-10: E55.9 ICD-9: 268.904ctiveChronic kidney disease, stage 3 unspecifiedICD-10: N18.30041ResolvedDandruff in adultICD-10: L21.0 ICD-9: 690.18007/08/2020ctiveContact with and (suspected) exposure to other viral communicable diseasesICD-10: Z20.828 ICD-9: V01.7902esolvedContact with and (suspected) exposure to covid-19 ICD-10: Z20.822 ICD-9: V01.7906/20/2020ctiveHyperhidrosis of palmsICD-10: L74.512 ICD-9: 705.4164LaqhiaRmeiyezgMjjieup19/28/2020ActiveDiabetes mellitus Type 3Ivfgauh78/28/2020ActiveAnemia in chronic kidney diseaseICD-10: D63.1 02/12/2020ResolvedHyperlipidemia, unspecifiedICD-10: E78.Resolved Medications Medication Codes Instructions Start Date Stop Date Status Fill Instructions Lyrica 50 mg capsule RxNorm: 325147 Take 1 Capsule(s) Oral QAM every morning 12/24/19 21 021 Inactive Lyrica 100 mg capsule RxNorm: 017812 Take 1 Capsule(s) Oral QHS every night at bedtime 12/24/19 21 021 Inactive clotrimazole 1 % topical cream RxNorm: 151839 Apply to right foot and toes Topical BID 12/04/19 21 023 Inactive metoprolol succinate ER 200 mg tablet,extended release 24 hr RxNorm: 959355 Take 1 Tablet(s) Oral QD 12/04/19 21 023 Inactive ciprofloxacin 500 mg tablet RxNorm: 717566 Take 1 Tablet(s) Oral QD 11/30/19 21 021 Inactive DX ofloxacin otic drops Accu-Chek Guide test strips RxNorm: USE 1 TO CHECK GLUCOSE 4 TIMES DAILY AND NEEDED 11/15/19 21 023 Inactive Blood Glucose Test strips RxNorm: Use 1 Test Strip QID at PRN 11/05/19 21 023 Inactive E11.42 lisinopril 30 mg tablet RxNorm: 633437 Take 1 Tablet(s) Oral QD 10/30/19 021 Inactive lisinopril 20 mg tablet RxNorm: 343155 Take 1 Tablet(s) Oral QD 10/23/19 021 Inactive lisinopril 20 mg tablet RxNorm: 287487 Take 1 Tablet(s) Oral QD 10/23/19 21 021 Inactive lisinopril 10 mg tablet RxNorm: 283147 Take 1 Tablet(s) Oral QD 10/02/19 021 Inactive icosapent ethyl 1 gram capsule RxNorm: 2368625 Take 2 Capsule(s) (2 gm) Oral BID with meals 09/12/19 022 Inactive Okay to dispense one 2gm tab if you have that available. icosapent ethyl 1 gram capsule RxNorm: 2166340 Take 2 Capsule(s) Oral BID 09/12/19 021 Inactive Okay to dispense one 2gm tab if you have that available. amlodipine 10 mg tablet RxNorm: 999236 Take 1 Tablet(s) Oral QD 09/04/19 022 Inactive aspirin 81 mg tablet,delayed release RxNorm: 994302 Take 1 Tablet(s) Oral QD 09/04/19 021 Inactive Levemir FlexTouch U-100 Insulin 100 unit/mL (3 mL) subcutaneous pen RxNorm: 625540 Inject 150 Unit(s) Subcutaneous BID 09/04/19 21 022 Inactive venlafaxine ER 150 mg tablet,extended release 24 hr RxNorm: 473051 Take 1 Tablet(s) Oral QD 09/04/19 21 021 Inactive clotrimazole-betame thasone 1 %-0.05 % topical cream RxNorm: 824550 Apply to rash on red area on left abdomen/chest Topical BID 08/10/19 21 021 Inactive amlodipine 5 mg tablet RxNorm: 005065 Take 1 Tablet(s) Oral QD 07/31/19 21 021 Inactive cephalexin 500 mg tablet RxNorm: 168278 Take 1 Tablet(s) Oral BID BID - Twice Daily 07/31/19 Inactive Start 08/01/20 pantoprazole 40 mg tablet,delayed release RxNorm: 103954 Take 1 Tablet(s) Oral QAM every morning 07/08/19 022 Inactive clopidogrel 75 mg tablet RxNorm: 931694 Take 1 Tablet(s) Oral QD 07/08/19 021 Inactive senna 8.6 mg tablet RxNorm: 328752 Take 1 Tablet(s) Oral QD 07/08/19 022 Inactive Novolog Flexpen U-100 Insulin aspart 100 unit/mL (3 mL) subcutaneous RxNorm: 9999249 Administer per sliding scale Milliliter(s) Subcutaneous TID 151-200: 10 u; 201-250: 20 u; 251-300: 30 u; 301-350: 40 u; 351-400: 50 u. 07/08/19 022 Inactive Novolog Flexpen U-100 Insulin aspart 100 unit/mL (3 mL) subcutaneous RxNorm: 9138617 Inject 85 Unit(s) Subcutaneous TID 07/08/19 022 Inactive pravastatin 80 mg tablet RxNorm: 213948 Take 1 Tablet(s) Oral QHS every night at bedtime 07/08/19 022 Inactive clotrimazole 1 % topical cream RxNorm: 480980 Apply to bilateral groin areas Topical BID 07/08/19 022 Inactive carbamazepine 200 mg tablet RxNorm: 671179 Take 1 Tablet(s) Oral BID 07/08/19 022 Inactive torsemide 20 mg tablet RxNorm: 820086 Take 1 Tablet(s) Oral QD 07/08/19 023 Inactive Blood Glucose Test strips RxNorm: Use 1 Test Strip QID at PRN 07/08/19 21 021 Inactive E11.42 lisinopril 5 mg tablet RxNorm: 187350 Take 1 Tablet(s) Oral QD 07/08/19 021 Inactive metoprolol succinate ER 200 mg tablet,extended release 24 hr RxNorm: 714693 Take 1 Tablet(s) Oral QD 07/08/19 Inactive Vitamin D3 25 mcg (1,000 unit) tablet RxNorm: 674126 Take 1 Tablet(s) Oral QD 07/08/19 Inactive isosorbide dinitrate 30 mg tablet RxNorm: 335490 Take 1 Tablet(s) Oral QD 07/08/19 021 Inactive Levemir FlexTouch U-100 Insulin 100 unit/mL (3 mL) subcutaneous pen RxNorm: 356807 Inject 140 Unit(s) Subcutaneous BID 07/08/19 Inactive venlafaxine 75 mg tablet RxNorm: 058014 Take 1 Tablet(s) Oral QD 07/08/19 Inactive acetaminophen 500 mg tablet RxNorm: 010701 Take 1 Tablet(s) Oral TID as needed for headache 06/18/19 Inactive acetaminophen 500 mg tablet RxNorm: 428336 Take 1 Tablet(s) Oral TID as needed for headache 06/18/19 Inactive Lyrica 100 mg capsule RxNorm: 839996 Take 1 Capsule(s) Oral QHS every night at bedtime 06/11/19 Inactive Lyrica 50 mg capsule RxNorm: 855356 Take 1 Capsule(s) Oral QAM every morning 06/10/19 21 Inactive hydrocortisone 2.5 % topical cream RxNorm: 856203 Apply to bilateral groin creases Topical BID 05/15/20 20 021 Inactive clotrimazole 1 % topical cream RxNorm: 511664 Apply to bilateral groin areas Topical BID 05/15/20 20 021 Inactive Lyrica 50 mg capsule RxNorm: 382276 Take 1 Capsule(s) Oral QAM every morning 05/14/20 20 Inactive Lyrica 100 mg capsule RxNorm: 602735 Take 1 Capsule(s) Oral QHS every night [...] Inactive Nystop 100,000 unit/gram topical powder RxNorm: 327169 Apply to abd folds, under breasts and L side of groin Topical BID x 14 days, then BID PRN 04/08/20 20 021 Inactive dx: yeast dermatitis Lyrica 100 mg capsule RxNorm: 109174 Take 1 Capsule(s) Oral QHS every night at bedtime 03/13/20 20 Inactive Lyrica 50 mg capsule RxNorm: 682761 Take 1 Capsule(s) Oral QAM every morning 03/13/20 20 Inactive ketoconazole 2 % shampoo RxNorm: 973333 Apply Topical two times a week with showers 03/11/20 20 Inactive cholecalciferol (vitamin D3) 50 mcg (2,000 unit) tablet RxNorm: 093599 Take 1 Tablet(s) Oral QD 03/11/20 20 021 Inactive Zetia 10 mg tablet RxNorm: 307266 Take 1 Tablet(s) Oral QD 03/07/20 20 021 Inactive Zetia 10 mg tablet RxNorm: 154908 Take 1 Tablet(s) Oral QD 03/07/20 20 Inactive Lyrica 50 mg capsule RxNorm: 154577 Take 1 Capsule(s) Oral QAM every morning 02/15/20 20 Inactive Lyrica 100 mg capsule RxNorm: 122483 Take 1 Capsule(s) Oral QHS every night at bedtime 02/15/20 20 Inactive Lyrica 100 mg capsule RxNorm: 433173 Take 1 Capsule(s) Oral QHS every night at bedtime 02/15/20 20 Inactive Lyrica 50 mg capsule RxNorm: 807239 Take 1 Capsule(s) Oral QAM every morning [...] Codes Status Date Referral: [facility] WPtel: [address], [address] [id number] USReferralRecords Wrgycxxp97/08/2023Referral: [facility] WPtel: [address] [id number]/12/2022Referral: General CardiologyReferralCompleted 1Referral: General PsychologistReferralClosed Instructions Comment Date Leonid is a Male being seen living at [facility]. Initial BPS visit 01/2020. PMHx including DMII, CAD w/ 5 stents, Depression, Seizure Disorder and CKD stage 3. He moved into [facility] in 12/2019 but after a hospitalization 05/2021 he moved to the [facility] to have closer nursing attention. Sister Jyotsna involved in his care cell# [phone] Guardian: Don (tapan met in person 09/01/21), now has Lexii (same group as don)Lab Schedule: * 10/06/2022
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
--- OUTSIDE RECORDS SUMMARY | 2021-02-25 18:00 | XMS_ITS | CCD ---
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 Leather Tanner Name Role Phone Tapan Shirley PA-C Primary Care Provider Unavailabl e Tapan Shirley PA-C Chronic Care Management Unavaila ble Summary Purpose DataExchange Insurance Providers Payer name Policy type / Coverage type Covered green party ID Effective Begin Date Effective End Date Medicare [place] Medicare Part B [id number] Unknown Unknown [place] B [id number] Unknown Unknown Family history Runs in the family Diagnosis Age At Onset No Known Diseases N/A Social History Social History Element Codes Description Effec tive Dates Living arrangements Unknown Care Home 09/03/[address]: 4369053 Non-Smoker / No History of Smoking 09/02/[address]: 047304132 No Alcohol Consum ption 09/02/2020 Allergies, Adverse Reactions, Alerts Substance Reaction Codes Entered Date Inactivated Date Status LISINOPRIL RxNorm: 1955120No Inactive DateActiveMetformin OTaJlsmdiu53/28/2020No Inactive DateActive Problems Condition Codes Effective Dates Condition St atus Callus of heel ICD-10: L84 ICD-9: 3821302/10/2021ctiveCoronary artery disease involving [place] coronary artery of [place] heart, angina presence unspecifiedICD-10: I25.10 ICD-9: 414.0109ctiveDVT (deep venous thrombosis)ICD-10: I82.409 ICD-9: 453.40091ActiveHyperlipidemia associated with type 2 diabetes mellitusICD-10: E11.69 ICD-9: 250.8001ActiveHypertension associated with diabetesICD-10: E11.59 ICD-9: 250.1ActiveSeizure disorderICD-10: G40.909 ICD-9: 345.9001ActiveSkin tagICD-10: L91.8 ICD-9: 701.909/ctiveStage 2 chronic 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ICD-10: E11.22 ICD-9: 250.4009ctiveType 2 diabetes mellitus with diabetic polyneuropathy, with long-term current use of insulinICD-10: E11.42 ICD-9: 250.6009/ctiveImpacted cerumen, left earICD-10: H61.22 ICD-9: 380.408/ctiveInappropriate sexual behaviorICD-10: Z72.89 ICD-9: 312.8908/ctiveLearning disabilityICD-10: F81.9 ICD-9: 315.208ctiveContact with and (suspected) exposure to covid-19 ICD-10: Z20.822 ICD-9: V01.7908esolvedOther infective acute otitis externa of left ear ICD-10: H60.392 ICD-9: 380.1008esolvedScrotal skin lesionICD-10: N50.9 ICD-9: 608.908/esolvedTinea pedisICD-10: B35.3 ICD-9: 110.408esolvedVisit for preventive health examinationICD-10: Z00.00 ICD-9: V70.008/esolvedCandidiasis, intertrigoICD-10: B37.2 ICD-9: 112.306/ctiveSecondary hypertensionICD-10: I15.9 ICD-9: 405.9906/ctiveCellulitisICD-10: L03.90 ICD-9: 682.906esolvedHistory of anemia due to CKDICD-10: N18.9 ICD-9: 585.905ctiveStage 2 chronic kidney diseaseICD-10: N18.2 ICD-9: 585.205ctiveAnemia due to stage 3b chronic kidney diseaseICD-10: N18.32 ICD-9: 285.2105esolvedDepressionICD-10: F32.9 ICD-9: 91945ctiveGout due to renal impairmentICD-10: M10.30 ICD-9: 274.1004ctiveLong term (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 insulinICD-10: Z79.4 09/03/2020ctiveLower extremity edemaICD-10: R60.0 ICD-9: 782.304ctiveVitamin D deficiencyICD-10: E55.9 ICD-9: 268.904ctiveChronic kidney disease, stage 3 unspecifiedICD-10: N18.30009/03/2020esolvedDandruff in adultICD-10: L21.0 ICD-9: 690.18007/08/2020ctiveContact with and (suspected) exposure to other viral communicable diseasesICD-10: Z20.828 ICD-9: V01.7907/08/2020esolvedHyperhidrosis of palmsICD-10: L74.512 ICD-9: 705.5197ZtvdbaJdwotpjzNgcuirq56/28/2020ActiveDiabetes mellitus Type 8Ahkrmya31/28/2020ActiveAnemia in chronic kidney diseaseICD-10: D63.1 02/12/2020ResolvedHyperlipidemia, unspecifiedICD-10: E78.Resolved Medications Medication Codes Instructions Start Date Stop Date Status Fill Instructions cephalexin 500 mg tablet RxNorm: 099771 Take 1 Tablet(s) Oral QID 02/27/20 21 021 Inactive cephalexin 500 mg tablet RxNorm: 715426 Take 1 Tablet(s) Oral QID 02/27/20 021 Inactive lisinopril 40 mg tablet RxNorm: 606406 Take 1 Tablet(s) Oral QD 02/11/20 21 023 Inactive Eliquis 5 mg tablet RxNorm: 5342651 Take 1 Tablet(s) Oral BID 01/05/20 21 022 Inactive Eliquis 5 mg tablet RxNorm: 5078445 Take 2 Tablet(s) Oral QD 01/01/20 21 021 Inactive Lyrica 50 mg capsule RxNorm: 612082 Take 1 Capsule(s) Oral QAM every morning 12/24/19 21 021 Inactive Lyrica 100 mg capsule RxNorm: 507512 Take 1 Capsule(s) Oral QHS every night at bedtime 12/24/19 21 021 Inactive clotrimazole 1 % topical cream RxNorm: 393478 Apply to right foot and toes Topical BID 12/04/19 21 023 Inactive metoprolol succinate ER 200 mg tablet,extended release 24 hr RxNorm: 241900 Take 1 Tablet(s) Oral QD 12/04/19 21 023 Inactive ciprofloxacin 500 mg tablet RxNorm: 571310 Take 1 Tablet(s) Oral QD 11/30/19 21 021 Inactive DX ofloxacin otic drops Accu-Chek Guide test strips RxNorm: USE 1 TO CHECK GLUCOSE 4 TIMES DAILY AND NEEDED 11/15/19 21 023 Inactive Blood Glucose Test strips RxNorm: Use 1 Test Strip QID at PRN 11/05/19 21 023 Inactive E11.42 lisinopril 30 mg tablet RxNorm: 711459 Take 1 Tablet(s) Oral QD 10/30/19 021 Inactive lisinopril 20 mg tablet RxNorm: 467497 Take 1 Tablet(s) Oral QD 10/23/19 021 Inactive lisinopril 20 mg tablet RxNorm: 791693 Take 1 Tablet(s) Oral QD 10/23/19 21 021 Inactive lisinopril 10 mg tablet RxNorm: 953253 Take 1 Tablet(s) Oral QD 10/02/19 21 021 Inactive icosapent ethyl 1 gram capsule RxNorm: 8550279 Take 2 Capsule(s) (2 gm) Oral BID with meals 09/12/19 21 022 Inactive Okay to dispense one 2gm tab if you have that available. icosapent ethyl 1 gram capsule RxNorm: 2677578 Take 2 Capsule(s) Oral BID 04/28/ Inactive Okay to dispense one 2gm tab if you have that available. amlodipine 10 mg tablet RxNorm: 009648 Take 1 Tablet(s) Oral QD 09/04/19 Inactive Levemir FlexTouch U-100 Insulin 100 unit/mL (3 mL) subcutaneous pen RxNorm: 678937 Inject 150 Unit(s) Subcutaneous BID 09/04/19 Inactive venlafaxine ER 150 mg tablet,extended release 24 hr RxNorm: 721437 Take 1 Tablet(s) Oral QD 09/04/19 Inactive aspirin 81 mg tablet,delayed release RxNorm: 542814 Take 1 Tablet(s) Oral QD 09/04/19 Inactive clotrimazole-betame thasone 1 %-0.05 % topical cream RxNorm: 508130 Apply to rash on red area on left abdomen/chest Topical BID 08/10/19 Inactive amlodipine 5 mg tablet RxNorm: 517402 Take 1 Tablet(s) Oral QD 07/31/19 Inactive cephalexin 500 mg tablet RxNorm: 112772 Take 1 Tablet(s) Oral BID BID - Twice Daily 07/31/19 Inactive Start 08/01/20 pantoprazole 40 mg tablet,delayed release RxNorm: 318140 Take 1 Tablet(s) Oral QAM every morning 07/08/19 Inactive senna 8.6 mg tablet RxNorm: 843431 Take 1 Tablet(s) Oral QD 07/08/19 022 Inactive Novolog Flexpen U-100 Insulin aspart 100 unit/mL (3 mL) subcutaneous RxNorm: 1808336 Administer per sliding scale Milliliter(s) Subcutaneous TID 151-200: 10 u; 201-250: 20 u; 251-300: 30 u; 301-350: 40 u; 351-400: 50 u. 07/08/19 022 Inactive Novolog Flexpen U-100 Insulin aspart 100 unit/mL (3 mL) subcutaneous RxNorm: 6570375 Inject 85 Unit(s) Subcutaneous TID 07/08/19 21 022 Inactive pravastatin 80 mg tablet RxNorm: 234249 Take 1 Tablet(s) Oral QHS every night at bedtime 07/08/19 022 Inactive clotrimazole 1 % topical cream RxNorm: 683653 Apply to bilateral groin areas Topical BID 07/08/19 21 022 Inactive carbamazepine 200 mg tablet RxNorm: 935728 Take 1 Tablet(s) Oral BID 07/08/19 022 Inactive torsemide 20 mg tablet RxNorm: 590804 Take 1 Tablet(s) Oral QD 07/08/19 21 023 Inactive clopidogrel 75 mg tablet RxNorm: 618674 Take 1 Tablet(s) Oral QD 07/08/19 021 Inactive Blood Glucose Test strips RxNorm: Use 1 Test Strip QID at PRN 07/08/19 21 Inactive E11.42 lisinopril 5 mg tablet RxNorm: 066033 Take 1 Tablet(s) Oral QD 07/08/19 021 Inactive metoprolol succinate ER 200 mg tablet,extended release 24 hr RxNorm: 451311 Take 1 Tablet(s) Oral QD 07/08/19 021 Inactive Vitamin D3 25 mcg (1,000 unit) tablet RxNorm: 450909 Take 1 Tablet(s) Oral QD 07/08/19 021 Inactive isosorbide dinitrate 30 mg tablet RxNorm: 105225 Take 1 Tablet(s) Oral QD 07/08/19 021 Inactive Levemir FlexTouch U-100 Insulin 100 unit/mL (3 mL) subcutaneous pen RxNorm: 164962 Inject 140 Unit(s) Subcutaneous BID 07/08/19 021 Inactive venlafaxine 75 mg tablet RxNorm: 765752 Take 1 Tablet(s) Oral QD 07/08/19 021 Inactive acetaminophen 500 mg tablet RxNorm: 319313 Take 1 Tablet(s) Oral TID as needed for headache 06/18/19 021 Inactive acetaminophen 500 mg tablet RxNorm: 250906 Take 1 Tablet(s) Oral TID as needed for headache 06/18/19 21 021 Inactive Lyrica 100 mg capsule RxNorm: 660538 Take 1 Capsule(s) Oral QHS every night at bedtime 06/11/19 21 021 Inactive Lyrica 50 mg capsule RxNorm: 510334 Take 1 Capsule(s) Oral QAM every morning 06/10/19 21 021 Inactive hydrocortisone 2.5 % topical cream RxNorm: 602254 Apply to bilateral groin creases Topical BID 05/15/20 20 021 Inactive clotrimazole 1 % topical cream RxNorm: 846185 Apply to bilateral groin areas Topical BID 05/15/20 20 021 Inactive Lyrica 50 mg capsule RxNorm: 480282 Take 1 Capsule(s) Oral QAM every morning 05/14/20 20 020 Inactive Lyrica 100 mg capsule RxNorm: 613547 Take 1 Capsule(s) Oral QHS every night [...] Inactive Nystop 100,000 unit/gram topical powder RxNorm: 989912 Apply to abd folds, under breasts and L side of groin Topical BID x 14 days, then BID PRN 04/08/20 20 021 Inactive dx: yeast dermatitis Lyrica 100 mg capsule RxNorm: 787712 Take 1 Capsule(s) Oral QHS every night at bedtime 03/13/20 20 Inactive Lyrica 50 mg capsule RxNorm: 075076 Take 1 Capsule(s) Oral QAM every morning 03/13/20 Inactive ketoconazole 2 % shampoo RxNorm: 768783 Apply Topical two times a week with showers 03/11/20 Inactive cholecalciferol (vitamin D3) 50 mcg (2,000 unit) tablet RxNorm: 223298 Take 1 Tablet(s) Oral QD 03/11/20 Inactive Zetia 10 mg tablet RxNorm: 656761 Take 1 Tablet(s) Oral QD 03/07/20 Inactive Zetia 10 mg tablet RxNorm: 889046 Take 1 Tablet(s) Oral QD 03/07/20 Inactive Lyrica 50 mg capsule RxNorm: 357754 Take 1 Capsule(s) Oral QAM every morning 02/15/20 Inactive Lyrica 100 mg capsule RxNorm: 022022 Take 1 Capsule(s) Oral QHS every night at bedtime 02/15/20 Inactive Lyrica 100 mg capsule RxNorm: 446116 Take 1 Capsule(s) Oral QHS every night at bedtime 02/15/20 Inactive Lyrica 50 mg capsule RxNorm: 519860 Take 1 Capsule(s) Oral QAM every morning [...] Status Date Referral: [facility] WPtel: [address], [address] [id number] [place]ReferralRecords [id number]/08/2023Referral: [facility] WPtel: [address] [id number] HFSydikvyhTokgvfokb77/12/2022Referral: General CardiologyReferralCompleted 1Referral: General PsychologistReferralClosed Instructions Comment Date Leonid [facility] 01/2020. PMHx including DMII, CAD w/ 5 stents, Depression, Seizure Disorder and CKD stage 3. He moved into [facility] in 12/2019 but after a hospitalization 05/2021 he moved to the [facility] to have closer nursing attention. Sister Jyotsna involved in his care cell# [phone] Guardian: Don (tapan met in person 09/01/21), now has Lexii (same group as don)Lab Schedule: * 10/06/2022
--- OUTSIDE RECORDS SUMMARY | 2021-03-06 18:00 | XMS_ITS | CCD ---
Author Name Sandra Mandujano CNP Address [address] [place] [address] Phone Organization [facility] Phone Care Team Providers Care Ecological Economist Name Role Phone Tapan Shirley PA-C Primary Care Provider Unavailabl e Tapan Shirley PA-C Chronic Care Management Unavaila ble Summary Purpose DataExchange Insurance Providers Payer name Policy type / Coverage type Covered democrat ID Effective Begin Date Effective End Date Medicare [place] Medicare Part B [id number] Unknown Unknown Medicaid [place] Medicare Part B [id number] Unknown Unknown Family history Runs in the family Diagnosis Age At Onset No Known Diseases N/A Social History Social History Element Codes Description Effec tive Dates Living arrangements Unknown Alf 09/03/[address]: 7259520 Non-Smoker / No History of Smoking 09/02/[address]: 471393624 No Alcohol Consum ption 09/02/2020 Allergies, Adverse Reactions, Alerts Substance Reaction Codes Entered Date Inactivated Date Status LISINOPRIL RxNorm: 2357791No Inactive DateActiveMetformin VDjVeugndq76/28/2020No Inactive DateActive Problems Condition Codes Effective Dates Condition St atus Cellulitis ICD-10: L03.90 ICD-9: 682.910/1ActiveHistory of anemia due to CKDICD-10: N18.9 ICD-9: 585.9101ActiveHyperlipidemia associated with type 2 diabetes mellitusICD-10: E11.69 ICD-9: 250.80101ActiveHypertension associated with diabetesICD-10: E11.59 ICD-9: 250.80101ActiveSeizure disorderICD-10: G40.909 ICD-9: 345.90101ActiveSkin tagICD-10: L91.8 ICD-9: 701.910/ctiveStage 2 chronic 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ICD-10: E11.22 ICD-9: 250.4010ctiveStage 2 chronic kidney diseaseICD-10: N18.2 ICD-9: 585.210ctiveType 2 diabetes mellitus with diabetic polyneuropathy, with long-term current use of insulinICD-10: E11.42 ICD-9: 250.6010ctiveVitamin D deficiencyICD-10: E55.9 ICD-9: 268.910ctiveCallus of heelICD-10: L84 ICD-9: 60031ctiveCoronary artery disease involving [place] coronary artery of [place] heart, angina presence unspecifiedICD-10: I25.10 ICD-9: 414.0109ctiveDVT (deep venous thrombosis)ICD-10: I82.409 ICD-9: 453.4009ctiveImpacted cerumen, left earICD-10: H61.22 ICD-9: 380.408ctiveInappropriate sexual behaviorICD-10: Z72.89 ICD-9: 312.8908ctiveLearning disabilityICD-10: F81.9 ICD-9: 315.208ctiveContact with and (suspected) exposure to covid-19 ICD-10: Z20.822 ICD-9: V01.7908esolvedOther infective acute otitis externa of left ear ICD-10: H60.392 ICD-9: 380.1008/esolvedScrotal skin lesionICD-10: N50.9 ICD-9: 608.908esolvedTinea pedisICD-10: B35.3 ICD-9: 110.408esolvedVisit for preventive health examinationICD-10: Z00.00 ICD-9: V70.008/esolvedCandidiasis, intertrigoICD-10: B37.2 ICD-9: 112.306/ctiveSecondary hypertensionICD-10: I15.9 ICD-9: 405.9906ctiveAnemia due to stage 3b chronic kidney diseaseICD- 10: N18.32 ICD-9: 285.21010/01/2020esolvedDepressionICD-10: F32.9 ICD-9: 19686/ctiveGout due to renal impairmentICD-10: M10.30 ICD-9: 274.1004ctiveLong term (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 insulinICD-10: Z79.4 09/03/2020ctiveLower extremity edemaICD-10: R60.0 ICD-9: 782.304ctiveChronic kidney disease, stage 3 unspecifiedICD-10: N18.30009/03/2020esolvedDandruff in adultICD-10: L21.0 ICD-9: 690.18007/08/2020ctiveContact with and (suspected) exposure to other viral communicable diseasesICD-10: Z20.828 ICD-9: V01.7902esolvedHyperhidrosis of palmsICD-10: L74.512 ICD-9: 705.2698AucwspImbsqyvjHoheese20/28/2020ActiveDiabetes mellitus Type 3Eqprcbl40/28/2020ActiveAnemia in chronic kidney diseaseICD-10: D63.1 02/12/2020ResolvedHyperlipidemia, unspecifiedICD-10: E78.Resolved Medications Medication Codes Instructions Start Date Stop Date Status Fill Instructions hydralazine 10 mg tablet RxNorm: 687863 Take 1 Tablet(s) Oral QID 03/03/20 021 Inactive cephalexin 500 mg tablet RxNorm: 588556 Take 1 Tablet(s) Oral QID 02/27/20 021 Inactive cephalexin 500 mg tablet RxNorm: 603944 Take 1 Tablet(s) Oral QID 02/27/20 021 Inactive lisinopril 40 mg tablet RxNorm: 964591 Take 1 Tablet(s) Oral QD 02/11/20 023 Inactive Eliquis 5 mg tablet RxNorm: 1666659 Take 1 Tablet(s) Oral BID 01/05/20 21 022 Inactive Eliquis 5 mg tablet RxNorm: 0562504 Take 2 Tablet(s) Oral QD 01/01/20 21 021 Inactive Lyrica 50 mg capsule RxNorm: 218783 Take 1 Capsule(s) Oral QAM every morning 12/24/19 21 021 Inactive Lyrica 100 mg capsule RxNorm: 392427 Take 1 Capsule(s) Oral QHS every night at bedtime 12/24/19 021 Inactive clotrimazole 1 % topical cream RxNorm: 916490 Apply to right foot and toes Topical BID 12/04/19 21 023 Inactive metoprolol succinate ER 200 mg tablet,extended release 24 hr RxNorm: 858994 Take 1 Tablet(s) Oral QD 12/04/19 023 Inactive ciprofloxacin 500 mg tablet RxNorm: 551164 Take 1 Tablet(s) Oral QD 11/30/19 021 Inactive DX ofloxacin otic drops Accu-Chek Guide test strips RxNorm: USE 1 TO CHECK GLUCOSE 4 TIMES DAILY AND NEEDED 11/15/19 21 023 Inactive Blood Glucose Test strips RxNorm: Use 1 Test Strip QID at PRN 11/05/19 21 023 Inactive E11.42 lisinopril 30 mg tablet RxNorm: 939292 Take 1 Tablet(s) Oral QD 10/30/19 021 Inactive lisinopril 20 mg tablet RxNorm: 920619 Take 1 Tablet(s) Oral QD 10/23/19 21 021 Inactive lisinopril 20 mg tablet RxNorm: 922848 Take 1 Tablet(s) Oral QD 10/23/19 21 021 Inactive lisinopril 10 mg tablet RxNorm: 942957 Take 1 Tablet(s) Oral QD 10/02/19 21 021 Inactive icosapent ethyl 1 gram capsule RxNorm: 2319926 Take 2 Capsule(s) (2 gm) Oral BID with meals 09/12/19 Inactive Okay to dispense one 2gm tab if you have that available. icosapent ethyl 1 gram capsule RxNorm: 2384663 Take 2 Capsule(s) Oral BID 09/12/19 21 021 Inactive Okay to dispense one 2gm tab if you have that available. amlodipine 10 mg tablet RxNorm: 447595 Take 1 Tablet(s) Oral QD 09/04/19 21 Inactive Levemir FlexTouch U-100 Insulin 100 unit/mL (3 mL) subcutaneous pen RxNorm: 106527 Inject 150 Unit(s) Subcutaneous BID 09/04/19 21 Inactive venlafaxine ER 150 mg tablet,extended release 24 hr RxNorm: 987207 Take 1 Tablet(s) Oral QD 09/04/19 Inactive aspirin 81 mg tablet,delayed release RxNorm: 885350 Take 1 Tablet(s) Oral QD 09/04/19 Inactive clotrimazole-betame thasone 1 %-0.05 % topical cream RxNorm: 324745 Apply to rash on red area on left abdomen/chest Topical BID 08/10/19 21 Inactive amlodipine 5 mg tablet RxNorm: 523408 Take 1 Tablet(s) Oral QD 07/31/19 Inactive cephalexin 500 mg tablet RxNorm: 150947 Take 1 Tablet(s) Oral BID BID - Twice Daily 07/31/19 021 Inactive Start 08/01/20 pantoprazole 40 mg tablet,delayed release RxNorm: 054200 Take 1 Tablet(s) Oral QAM every morning 07/08/19 Inactive senna 8.6 mg tablet RxNorm: 362180 Take 1 Tablet(s) Oral QD 07/08/19 Inactive Novolog Flexpen U-100 Insulin aspart 100 unit/mL (3 mL) subcutaneous RxNorm: 1177218 Administer per sliding scale Milliliter(s) Subcutaneous TID 151-200: 10 u; 201-250: 20 u; 251-300: 30 u; 301-350: 40 u; 351-400: 50 u. 07/08/19 21 022 Inactive Novolog Flexpen U-100 Insulin aspart 100 unit/mL (3 mL) subcutaneous RxNorm: 5991016 Inject 85 Unit(s) Subcutaneous TID 07/08/19 21 022 Inactive pravastatin 80 mg tablet RxNorm: 527120 Take 1 Tablet(s) Oral QHS every night at bedtime 07/08/19 022 Inactive clotrimazole 1 % topical cream RxNorm: 763856 Apply to bilateral groin areas Topical BID 07/08/19 21 022 Inactive carbamazepine 200 mg tablet RxNorm: 536774 Take 1 Tablet(s) Oral BID 07/08/19 022 Inactive torsemide 20 mg tablet RxNorm: 489985 Take 1 Tablet(s) Oral QD 07/08/19 21 023 Inactive clopidogrel 75 mg tablet RxNorm: 005474 Take 1 Tablet(s) Oral QD 07/08/19 021 Inactive Blood Glucose Test strips RxNorm: Use 1 Test Strip QID at PRN 07/08/19 21 Inactive E11.42 lisinopril 5 mg tablet RxNorm: 822485 Take 1 Tablet(s) Oral QD 07/08/19 021 Inactive metoprolol succinate ER 200 mg tablet,extended release 24 hr RxNorm: 739246 Take 1 Tablet(s) Oral QD 07/08/19 021 Inactive Vitamin D3 25 mcg (1,000 unit) tablet RxNorm: 658605 Take 1 Tablet(s) Oral QD 07/08/19 021 Inactive isosorbide dinitrate 30 mg tablet RxNorm: 507610 Take 1 Tablet(s) Oral QD 07/08/19 21 021 Inactive Levemir FlexTouch U-100 Insulin 100 unit/mL (3 mL) subcutaneous pen RxNorm: 154995 Inject 140 Unit(s) Subcutaneous BID 07/08/19 21 021 Inactive venlafaxine 75 mg tablet RxNorm: 423705 Take 1 Tablet(s) Oral QD 07/08/19 21 021 Inactive acetaminophen 500 mg tablet RxNorm: 987891 Take 1 Tablet(s) Oral TID as needed for headache 06/18/19 21 021 Inactive acetaminophen 500 mg tablet RxNorm: 269090 Take 1 Tablet(s) Oral TID as needed for headache 06/18/19 21 021 Inactive Lyrica 100 mg capsule RxNorm: 742820 Take 1 Capsule(s) Oral QHS every night at bedtime 06/11/19 21 021 Inactive Lyrica 50 mg capsule RxNorm: 955231 Take 1 Capsule(s) Oral QAM every morning 06/10/19 21 021 Inactive hydrocortisone 2.5 % topical cream RxNorm: 227753 Apply to bilateral groin creases Topical BID 05/15/20 20 021 Inactive clotrimazole 1 % topical cream RxNorm: 527266 Apply to bilateral groin areas Topical BID 05/15/20 20 021 Inactive Lyrica 50 mg capsule RxNorm: 895858 Take 1 Capsule(s) Oral QAM every morning 05/14/20 20 020 Inactive Lyrica 100 mg capsule RxNorm: 837523 Take 1 Capsule(s) Oral QHS every night [...] Inactive Nystop 100,000 unit/gram topical powder RxNorm: 744103 Apply to abd folds, under breasts and L side of groin Topical BID x 14 days, then BID PRN 04/08/20 20 Inactive dx: yeast dermatitis Lyrica 100 mg capsule RxNorm: 776332 Take 1 Capsule(s) Oral QHS every night at bedtime 03/13/20 Inactive Lyrica 50 mg capsule RxNorm: 678279 Take 1 Capsule(s) Oral QAM every morning 03/13/20 Inactive ketoconazole 2 % shampoo RxNorm: 510071 Apply Topical two times a week with showers 03/11/20 Inactive cholecalciferol (vitamin D3) 50 mcg (2,000 unit) tablet RxNorm: 178033 Take 1 Tablet(s) Oral QD 03/11/20 Inactive Zetia 10 mg tablet RxNorm: 319763 Take 1 Tablet(s) Oral QD 03/07/20 20 Inactive Zetia 10 mg tablet RxNorm: 031236 Take 1 Tablet(s) Oral QD 03/07/20 20 Inactive Lyrica 50 mg capsule RxNorm: 547090 Take 1 Capsule(s) Oral QAM every morning 02/15/20 Inactive Lyrica 100 mg capsule RxNorm: 624023 Take 1 Capsule(s) Oral QHS every night at bedtime 02/15/20 Inactive Lyrica 100 mg capsule RxNorm: 780560 Take 1 Capsule(s) Oral QHS every night at bedtime 02/15/20 20 Inactive Lyrica 50 mg capsule RxNorm: 823839 Take 1 Capsule(s) Oral QAM every morning [...] CVX: 115 2008 Procedures Procedure Codes Date REMOVE SKIN TAGS ADD-ON CPT-4: 57503 03/03/20 21 Reason For Visit No Reason For Visit data Encounters Encounter Performer Location Location Address Codes Cristiano e ([id number]) DOMICIL VISIT EST CARLO T Diagnosis: History of anemia due to CKD[ICD10: N18.9] Diagnosis: Stage 2 chronic kidney disease[ICD10: N18.2] Diagnosis: Hyperlipidemia associated with type 2 diabetes mellitus[ICD10: E11.69] Diagnosis: Hypertension associated with diabetes[ICD10: E11.59] Diagnosis: Stage 2 chronic 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[ICD10: E11.22] Diagnosis: Type 2 diabetes mellitus with diabetic polyneuropathy, with long-term current use of insulin[ICD10: E11.42] Diagnosis: Skin tag[ICD10: L91.8] Diagnosis: Seizure disorder[ICD10: G40.909] Diagnosis: Vitamin D deficiency[ICD10: E55.9] Diagnosis: Cellulitis[ICD10: L03.90]Sandra Plasencia [id number] [place], [place] [address]OYN-8: [id number] Plan of Care Planned Activity Notes Codes Status Date Referral: [facility] WPtel: [address], [address] [id number] USReferralRecords Quonijcp58/08/2023Referral: [facility] WPtel: [address] [id number] MOEowpvpsmOthikjrrg73/12/2022atient Education: Patient Medication Summary Xeccjscoi22/18/2021Patient Education: Influenza GmkzskuFwzvgreoa57/18/2021 Referral: General RtetviyfiqTojgglxcKhvjrywqh39/20/2021eferral: General PsychologistReferralClosed Instructions Comment Date Leonid is a Male being seen living at [facility]. Initial BPS visit 01/2020. PMHx including DMII, CAD w/ 5 stents, Depression, Seizure Disorder and CKD stage 3. He moved into [facility] in 12/2019 but after a hospitalization 05/2021 he moved to the [facility] to have closer nursing attention. Sister Jyotsna involved in his care cell# [phone] Guardian: Don (tapan met in person 09/01/21), now has Lexii (same group as don)Lab Schedule: /September* 10/06/2022 Diabetes Checking lipid panel and CMP.?? Checking A1C Adding hydralazine for treatment of resistant HTN. Would also recommend cardiology follow up if this does not improve BP readings.?? Cellulitis Finish course of Keflex.?? Chronic Kidney Disease Checking CBC Epilepsy Serum Carbamazepine Vitamin D Deficiency Checking vit D level Skin tag 3 skin tags on right upper arm/axilla treated with liquid nitrogen without complication.?? .03/03/2021
--- OUTSIDE RECORDS SUMMARY | 2021-03-30 18:00 | XMS_ITS | CCD ---
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 Name Role Phone Tapan Shirley PA-C Primary Care Provider Unavailabl e Tapan Shirley PA-C Chronic Care Management Unavaila ble Summary Purpose DataExchange Insurance Providers Payer name Policy type / Coverage type Covered democrat ID Effective Begin Date Effective End Date Medicare [place] Medicare Part B [id number] Unknown Unknown Medicaid [place] Medicare Part B [id number] Unknown Unknown Family history Runs in the family Diagnosis Age At Onset No Known Diseases N/A Social History Social History Element Codes Description Effec tive Dates Living arrangements Unknown Long-Term 09/03/[address]: 9881653 Non-Smoker / No History of Smoking 09/02/[address]: 102311847 No Alcohol Consum ption 09/02/2020 Allergies, Adverse Reactions, Alerts Substance Reaction Codes Entered Date Inactivated Date Status LISINOPRIL RxNorm: 9067033No Inactive DateActiveMetformin SMuKbdodsq15/28/2020No Inactive DateActive Problems Condition Codes Effective Dates Condition St atus DVT (deep venous thrombosis) ICD-10: I82 .409 ICD-9: 453.4011ActiveHyperlipidemia associated with type 2 diabetes mellitusICD-10: E11.69 ICD-9: 250.8011ActiveHypertension associated with diabetesICD-10: E11.59 ICD-9: 250.8011ActiveSeizure disorderICD-10: G40.909 ICD-9: 345.9011ctiveSkin tagICD-10: L91.8 ICD-9: 701.911ActiveStage 2 chronic 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ICD-10: E11.22 ICD-9: 250.4011/ctiveType 2 diabetes mellitus with diabetic polyneuropathy, with long-term current use of insulinICD-10: E11.42 ICD-9: 250.6011ctiveVitamin D deficiencyICD-10: E55.9 ICD-9: 268.911/ctiveCellulitisICD-10: L03.90 ICD-9: 682.910ctiveHistory of anemia due to CKDICD-10: N18.9 ICD-9: 585.910/ctiveStage 2 chronic kidney diseaseICD-10: N18.2 ICD-9: 585.210ctiveCallus of heelICD-10: L84 ICD-9: 66982/ctiveCoronary artery disease involving [place] coronary artery of [place] heart, angina presence unspecifiedICD-10: I25.10 ICD-9: 414.0109ctiveImpacted cerumen, left earICD-10: H61.22 ICD-9: 380.408ctiveInappropriate sexual behaviorICD-10: Z72.89 ICD-9: 312.8908ctiveLearning disabilityICD-10: F81.9 ICD-9: 315.208ctiveContact with and (suspected) exposure to covid-19 ICD-10: Z20.822 ICD-9: V01.7908esolvedOther infective acute otitis externa of left ear ICD-10: H60.392 ICD-9: 380.1008esolvedScrotal skin lesionICD-10: N50.9 ICD-9: 608.908esolvedTinea pedisICD-10: B35.3 ICD-9: 110.408/esolvedVisit for preventive health examinationICD-10: Z00.00 ICD-9: V70.008/esolvedCandidiasis, intertrigoICD-10: B37.2 ICD-9: 112.306/ctiveSecondary hypertensionICD-10: I15.9 ICD-9: 405.9906ctiveAnemia due to stage 3b chronic kidney diseaseICD- 10: N18.32 ICD-9: 285.2105esolvedDepressionICD-10: F32.9 ICD-9: 54863/ctiveGout due to renal impairmentICD-10: M10.30 ICD-9: 274.1004ctiveLong term (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 insulinICD-10: Z79.4 09/03/2020ctiveLower extremity edemaICD-10: R60.0 ICD-9: 782.304ctiveChronic kidney disease, stage 3 unspecifiedICD-10: N18.30009/03/2020esolvedDandruff in adultICD-10: L21.0 ICD-9: 690.18007/08/2020ctiveContact with and (suspected) exposure to other viral communicable diseasesICD-10: Z20.828 ICD-9: V01.7902esolvedHyperhidrosis of palmsICD-10: L74.512 ICD-9: 705.2393BgkdwbKkwfaaaqKkljsxn80/28/2020ActiveDiabetes mellitus Type 6Gauuyjj46/28/2020ActiveAnemia in chronic kidney diseaseICD-10: D63.1 02/12/2020ResolvedHyperlipidemia, unspecifiedICD-10: E78.509Resolved Medications Medication Codes Instructions Start Date Stop Date Status Fill Instructions aspirin 81 mg tablet,delayed release RxNorm: 718534 Take 1 Tablet(s) Oral QD 03/31/20 022 Inactive Vitamin D2 1,250 mcg (50,000 unit) capsule RxNorm: 2852613 Take 1 Capsule(s) Oral QW once a week x 12 weeks 03/31/20 022 Inactive Vitamin D2 1,250 mcg (50,000 unit) capsule RxNorm: 7162949 Take 1 Capsule(s) Oral QW once a week 03/31/20 021 Inactive Zetia 10 mg tablet RxNorm: 717169 Take 1 Tablet(s) Oral QD 03/31/20 022 Inactive Zetia 10 mg tablet RxNorm: 269178 Take 1 Tablet(s) Oral QD 03/31/20 021 Inactive hydralazine 25 mg tablet RxNorm: 817698 Take 1 Tablet(s) Oral QID 03/31/20 021 Inactive hydralazine 25 mg tablet RxNorm: 000672 Take 1 Tablet(s) Oral QID 03/31/20 021 Inactive hydralazine 10 mg tablet RxNorm: 980021 Take 1 Tablet(s) Oral QID 03/03/20 021 Inactive cephalexin 500 mg tablet RxNorm: 019832 Take 1 Tablet(s) Oral QID 02/27/20 021 Inactive cephalexin 500 mg tablet RxNorm: 596671 Take 1 Tablet(s) Oral QID 02/27/20 021 Inactive lisinopril 40 mg tablet RxNorm: 316986 Take 1 Tablet(s) Oral QD 02/11/20 023 Inactive Eliquis 5 mg tablet RxNorm: 9252449 Take 1 Tablet(s) Oral BID 01/05/20 022 Inactive Eliquis 5 mg tablet RxNorm: 0036849 Take 2 Tablet(s) Oral QD 01/01/20 21 021 Inactive Lyrica 50 mg capsule RxNorm: 651380 Take 1 Capsule(s) Oral QAM every morning 12/24/19 21 021 Inactive Lyrica 100 mg capsule RxNorm: 077335 Take 1 Capsule(s) Oral QHS every night at bedtime 12/24/19 021 Inactive clotrimazole 1 % topical cream RxNorm: 709645 Apply to right foot and toes Topical BID 12/04/19 21 023 Inactive metoprolol succinate ER 200 mg tablet,extended release 24 hr RxNorm: 186990 Take 1 Tablet(s) Oral QD 12/04/19 023 Inactive ciprofloxacin 500 mg tablet RxNorm: 265087 Take 1 Tablet(s) Oral QD 11/30/19 21 021 Inactive DX ofloxacin otic drops Accu-Chek Guide test strips RxNorm: USE 1 TO CHECK GLUCOSE 4 TIMES DAILY AND NEEDED 11/15/19 21 023 Inactive Blood Glucose Test strips RxNorm: Use 1 Test Strip QID at PRN 11/05/19 21 023 Inactive E11.42 lisinopril 30 mg tablet RxNorm: 766559 Take 1 Tablet(s) Oral QD 10/30/19 021 Inactive lisinopril 20 mg tablet RxNorm: 411459 Take 1 Tablet(s) Oral QD 10/23/19 21 021 Inactive lisinopril 20 mg tablet RxNorm: 486025 Take 1 Tablet(s) Oral QD 10/23/19 021 Inactive lisinopril 10 mg tablet RxNorm: 589505 Take 1 Tablet(s) Oral QD 10/02/19 021 Inactive icosapent ethyl 1 gram capsule RxNorm: 2169351 Take 2 Capsule(s) (2 gm) Oral BID with meals 09/12/19 022 Inactive Okay to dispense one 2gm tab if you have that available. icosapent ethyl 1 gram capsule RxNorm: 6278204 Take 2 Capsule(s) Oral BID 09/12/19 021 Inactive Okay to dispense one 2gm tab if you have that available. amlodipine 10 mg tablet RxNorm: 305289 Take 1 Tablet(s) Oral QD 09/04/19 022 Inactive Levemir FlexTouch U-100 Insulin 100 unit/mL (3 mL) subcutaneous pen RxNorm: 082333 Inject 150 Unit(s) Subcutaneous BID 09/04/19 21 022 Inactive venlafaxine ER 150 mg tablet,extended release 24 hr RxNorm: 396804 Take 1 Tablet(s) Oral QD 09/04/19 21 021 Inactive aspirin 81 mg tablet,delayed release RxNorm: 906392 Take 1 Tablet(s) Oral QD 09/04/19 21 Inactive clotrimazole-betame thasone 1 %-0.05 % topical cream RxNorm: 084661 Apply to rash on red area on left abdomen/chest Topical BID 08/10/19 21 Inactive amlodipine 5 mg tablet RxNorm: 456317 Take 1 Tablet(s) Oral QD 07/31/19 Inactive cephalexin 500 mg tablet RxNorm: 182696 Take 1 Tablet(s) Oral BID BID - Twice Daily 07/31/19 021 Inactive Start 08/01/20 pantoprazole 40 mg tablet,delayed release RxNorm: 078551 Take 1 Tablet(s) Oral QAM every morning 07/08/19 022 Inactive senna 8.6 mg tablet RxNorm: 312104 Take 1 Tablet(s) Oral QD 07/08/19 022 Inactive Novolog Flexpen U-100 Insulin aspart 100 unit/mL (3 mL) subcutaneous RxNorm: 7442216 Administer per sliding scale Milliliter(s) Subcutaneous TID 151-200: 10 u; 201-250: 20 u; 251-300: 30 u; 301-350: 40 u; 351-400: 50 u. 07/08/19 022 Inactive Novolog Flexpen U-100 Insulin aspart 100 unit/mL (3 mL) subcutaneous RxNorm: 0540052 Inject 85 Unit(s) Subcutaneous TID 07/08/19 022 Inactive pravastatin 80 mg tablet RxNorm: 266289 Take 1 Tablet(s) Oral QHS every night at bedtime 07/08/19 022 Inactive clotrimazole 1 % topical cream RxNorm: 762928 Apply to bilateral groin areas Topical BID 07/08/19 21 022 Inactive carbamazepine 200 mg tablet RxNorm: 054274 Take 1 Tablet(s) Oral BID 07/08/19 022 Inactive torsemide 20 mg tablet RxNorm: 740823 Take 1 Tablet(s) Oral QD 07/08/19 023 Inactive clopidogrel 75 mg tablet RxNorm: 237110 Take 1 Tablet(s) Oral QD 07/08/19 021 Inactive Blood Glucose Test strips RxNorm: Use 1 Test Strip QID at PRN 07/08/19 21 Inactive E11.42 lisinopril 5 mg tablet RxNorm: 254302 Take 1 Tablet(s) Oral QD 07/08/19 021 Inactive metoprolol succinate ER 200 mg tablet,extended release 24 hr RxNorm: 898895 Take 1 Tablet(s) Oral QD 07/08/19 Inactive Vitamin D3 25 mcg (1,000 unit) tablet RxNorm: 349525 Take 1 Tablet(s) Oral QD 07/08/19 021 Inactive isosorbide dinitrate 30 mg tablet RxNorm: 031230 Take 1 Tablet(s) Oral QD 07/08/19 021 Inactive Levemir FlexTouch U-100 Insulin 100 unit/mL (3 mL) subcutaneous pen RxNorm: 399001 Inject 140 Unit(s) Subcutaneous BID 07/08/19 021 Inactive venlafaxine 75 mg tablet RxNorm: 521078 Take 1 Tablet(s) Oral QD 07/08/19 021 Inactive acetaminophen 500 mg tablet RxNorm: 128942 Take 1 Tablet(s) Oral TID as needed for headache 06/18/19 021 Inactive acetaminophen 500 mg tablet RxNorm: 320036 Take 1 Tablet(s) Oral TID as needed for headache 06/18/19 021 Inactive Lyrica 100 mg capsule RxNorm: 383830 Take 1 Capsule(s) Oral QHS every night at bedtime 06/11/19 021 Inactive Lyrica 50 mg capsule RxNorm: 907862 Take 1 Capsule(s) Oral QAM every morning 06/10/19 21 021 Inactive hydrocortisone 2.5 % topical cream RxNorm: 586982 Apply to bilateral groin creases Topical BID 05/15/20 20 021 Inactive clotrimazole 1 % topical cream RxNorm: 706607 Apply to bilateral groin areas Topical BID 05/15/20 20 Inactive Lyrica 50 mg capsule RxNorm: 704673 Take 1 Capsule(s) Oral QAM every morning 05/14/20 20 Inactive Lyrica 100 mg capsule RxNorm: 837111 Take 1 Capsule(s) Oral QHS every night [...] Inactive Nystop 100,000 unit/gram topical powder RxNorm: 819669 Apply to abd folds, under breasts and L side of groin Topical BID x 14 days, then BID PRN 04/08/20 20 021 Inactive dx: yeast dermatitis Lyrica 100 mg capsule RxNorm: 943229 Take 1 Capsule(s) Oral QHS every night at bedtime 03/13/20 20 Inactive Lyrica 50 mg capsule RxNorm: 948867 Take 1 Capsule(s) Oral QAM every morning 03/13/20 20 Inactive ketoconazole 2 % shampoo RxNorm: 150725 Apply Topical two times a week with showers 03/11/20 20 Inactive cholecalciferol (vitamin D3) 50 mcg (2,000 unit) tablet RxNorm: 985546 Take 1 Tablet(s) Oral QD 03/11/20 20 Inactive Zetia 10 mg tablet RxNorm: 421271 Take 1 Tablet(s) Oral QD 03/07/20 20 Inactive Zetia 10 mg tablet RxNorm: 187237 Take 1 Tablet(s) Oral QD 03/07/20 Inactive Lyrica 50 mg capsule RxNorm: 115164 Take 1 Capsule(s) Oral QAM every morning 02/15/20 Inactive Lyrica 100 mg capsule RxNorm: 576541 Take 1 Capsule(s) Oral QHS every night at bedtime 02/15/20 Inactive Lyrica 100 mg capsule RxNorm: 506125 Take 1 Capsule(s) Oral QHS every night at bedtime 02/15/20 Inactive Lyrica 50 mg capsule RxNorm: 071527 Take 1 Capsule(s) Oral QAM every morning [...] Status Date Referral: [facility] WPtel: [address], [address] [id number] [place]ReferralRecords Chdcvwdl95/08/2023Referral: [facility] WPtel: [address] [id number] HFEczedmrjSxbeiagln15/12/2022atient Education: Patient Medication Summary Yyvpkbxjc93/15/2021eferral: General XwjbhyeejsRdysrybhHqtcopieg86/20/2021 Referral: General PsychologistReferralClosed Instructions Comment Date Leonid is a Male being seen living at [facility]. Initial BPS visit 01/2020. PMHx including DMII, CAD w/ 5 stents, Depression, Seizure Disorder and CKD stage 3. He moved into [facility] in 12/2019 but after a hospitalization 05/2021 [facility]. Sister Jyotsna involved in his care cell# [phone] Guardian: Don (tapan met in person 09/01/21), now has Lexii (same group as don)Lab Schedule: * 10/06/2022
--- OUTSIDE RECORDS SUMMARY | 2021-03-30 18:00 | XMS_ITS | CCD ---
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 Editorial Director Name Role Phone Tapan Shirley PA-C Primary Care Provider Unavailabl e Tapan Shirley PA-C Chronic Care Management Unavaila ble Summary Purpose DataExchange Insurance Providers Payer name Policy type / Coverage type Covered democrat ID Effective Begin Date Effective End Date Medicare [place] Medicare Part [place] [id number] Unknown Unknown Medicaid [place] Medicare Part B [id number] Unknown Unknown Family history Runs in the family Diagnosis Age At Onset No Known Diseases N/A Social History Social History Element Codes Description Effec tive Dates Living arrangements Unknown Longterm 09/03/[address]: 8136475 Non-Smoker / No History of Smoking 09/02/[address]: 876926222 No Alcohol Consum ption 09/02/2020 Allergies, Adverse Reactions, Alerts Substance Reaction Codes Entered Date Inactivated Date Status LISINOPRIL RxNorm: 6069303No Inactive DateActiveMetformin ZNdWepwhtp09/28/2020No Inactive DateActive Problems Condition Codes Effective Dates Condition St atus DVT (deep venous thrombosis) ICD-10: I82 .409 ICD-9: 453.40105/31/2020ctiveHyperlipidemia associated with type 2 diabetes mellitusICD-10: E11.69 ICD-9: 250.8011ActiveHypertension associated with diabetesICD-10: E11.59 ICD-9: 250.8011ActiveSeizure disorderICD-10: G40.909 ICD-9: 345.9003/31/2021ctiveSkin tagICD-10: L91.8 ICD-9: 701.9105/31/2020ctiveStage 2 chronic 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ICD-10: E11.22 ICD-9: 250.40105/31/2020ctiveType 2 diabetes mellitus with diabetic polyneuropathy, with long-term current use of insulinICD-10: E11.42 ICD-9: 250.6011/ctiveVitamin D deficiencyICD-10: E55.9 ICD-9: 268.911/ctiveCellulitisICD-10: L03.90 ICD-9: 682.910/ctiveHistory of anemia due to CKDICD-10: N18.9 ICD-9: 585.910/ctiveStage 2 chronic kidney diseaseICD-10: N18.2 ICD-9: 585.210/ctiveCallus of heelICD-10: L84 ICD-9: 90124/ctiveCoronary artery disease involving [place] coronary artery of [place] heart, angina presence unspecifiedICD-10: I25.10 ICD-9: 414.0109ctiveImpacted cerumen, left earICD-10: H61.22 ICD-9: 380.408/ctiveInappropriate sexual behaviorICD-10: Z72.89 ICD-9: 312.8908ctiveLearning disabilityICD-10: F81.9 ICD-9: 315.208ctiveContact with and (suspected) exposure to covid-19 ICD-10: Z20.822 ICD-9: V01.7908esolvedOther infective acute otitis externa of left ear ICD-10: H60.392 ICD-9: 380.1008/esolvedScrotal skin lesionICD-10: N50.9 ICD-9: 608.908/esolvedTinea pedisICD-10: B35.3 ICD-9: 110.408/esolvedVisit for preventive health examinationICD-10: Z00.00 ICD-9: V70.008/esolvedCandidiasis, intertrigoICD-10: B37.2 ICD-9: 112.306/ctiveSecondary hypertensionICD-10: I15.9 ICD-9: 405.9906ctiveAnemia due to stage 3b chronic kidney diseaseICD- 10: N18.32 ICD-9: 285.21010/01/2020esolvedDepressionICD-10: F32.9 ICD-9: 52503ctiveGout due to renal impairmentICD-10: M10.30 ICD-9: 274.1004ctiveLong term (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 insulinICD-10: Z79.4 09/03/2020ctiveLower extremity edemaICD-10: R60.0 ICD-9: 782.304ctiveChronic kidney disease, stage 3 unspecifiedICD-10: N18.30009/03/2020esolvedDandruff in adultICD-10: L21.0 ICD-9: 690.18007/08/2020ctiveContact with and (suspected) exposure to other viral communicable diseasesICD-10: Z20.828 ICD-9: V01.7907/08/2020esolvedHyperhidrosis of palmsICD-10: L74.512 ICD-9: 705.6905PwoexzFetvnyvdRwvlcgl35/28/2020ActiveDiabetes mellitus Type 9Njnujxq37/28/2020ActiveAnemia in chronic kidney diseaseICD-10: D63.1 02/12/2020ResolvedHyperlipidemia, unspecifiedICD-10: E78.509Resolved Medications Medication Codes Instructions Start Date Stop Date Status Fill Instructions aspirin 81 mg tablet,delayed release RxNorm: 564280 Take 1 Tablet(s) Oral QD 03/31/20 022 Inactive Vitamin D2 1,250 mcg (50,000 unit) capsule RxNorm: 8181294 Take 1 Capsule(s) Oral QW once a week x 12 weeks 03/31/20 022 Inactive Vitamin D2 1,250 mcg (50,000 unit) capsule RxNorm: 6391773 Take 1 Capsule(s) Oral QW once a week 03/31/20 021 Inactive Zetia 10 mg tablet RxNorm: 521159 Take 1 Tablet(s) Oral QD 03/31/20 022 Inactive Zetia 10 mg tablet RxNorm: 384323 Take 1 Tablet(s) Oral QD 03/31/20 021 Inactive hydralazine 25 mg tablet RxNorm: 227546 Take 1 Tablet(s) Oral QID 03/31/20 021 Inactive hydralazine 25 mg tablet RxNorm: 980448 Take 1 Tablet(s) Oral QID 03/31/20 021 Inactive hydralazine 10 mg tablet RxNorm: 351188 Take 1 Tablet(s) Oral QID 03/03/20 021 Inactive cephalexin 500 mg tablet RxNorm: 891207 Take 1 Tablet(s) Oral QID 02/27/20 021 Inactive cephalexin 500 mg tablet RxNorm: 660350 Take 1 Tablet(s) Oral QID 02/27/20 021 Inactive lisinopril 40 mg tablet RxNorm: 961230 Take 1 Tablet(s) Oral QD 02/11/20 023 Inactive Eliquis 5 mg tablet RxNorm: 3523734 Take 1 Tablet(s) Oral BID 01/05/20 022 Inactive Eliquis 5 mg tablet RxNorm: 7429369 Take 2 Tablet(s) Oral QD 01/01/20 21 021 Inactive Lyrica 50 mg capsule RxNorm: 983655 Take 1 Capsule(s) Oral QAM every morning 12/24/19 021 Inactive Lyrica 100 mg capsule RxNorm: 636806 Take 1 Capsule(s) Oral QHS every night at bedtime 12/24/19 021 Inactive clotrimazole 1 % topical cream RxNorm: 580338 Apply to right foot and toes Topical BID 12/04/19 21 023 Inactive metoprolol succinate ER 200 mg tablet,extended release 24 hr RxNorm: 835138 Take 1 Tablet(s) Oral QD 12/04/19 21 023 Inactive ciprofloxacin 500 mg tablet RxNorm: 469036 Take 1 Tablet(s) Oral QD 11/30/19 21 021 Inactive DX ofloxacin otic drops Accu-Chek Guide test strips RxNorm: USE 1 TO CHECK GLUCOSE 4 TIMES DAILY AND NEEDED 11/15/19 21 023 Inactive Blood Glucose Test strips RxNorm: Use 1 Test Strip QID at PRN 11/05/19 21 023 Inactive E11.42 lisinopril 30 mg tablet RxNorm: 613153 Take 1 Tablet(s) Oral QD 10/30/19 021 Inactive lisinopril 20 mg tablet RxNorm: 002207 Take 1 Tablet(s) Oral QD 10/23/19 21 021 Inactive lisinopril 20 mg tablet RxNorm: 292143 Take 1 Tablet(s) Oral QD 10/23/19 021 Inactive lisinopril 10 mg tablet RxNorm: 786078 Take 1 Tablet(s) Oral QD 10/02/19 021 Inactive icosapent ethyl 1 gram capsule RxNorm: 3191808 Take 2 Capsule(s) (2 gm) Oral BID with meals 09/12/19 022 Inactive Okay to dispense one 2gm tab if you have that available. icosapent ethyl 1 gram capsule RxNorm: 6710739 Take 2 Capsule(s) Oral BID 09/12/19 021 Inactive Okay to dispense one 2gm tab if you have that available. amlodipine 10 mg tablet RxNorm: 005408 Take 1 Tablet(s) Oral QD 09/04/19 022 Inactive Levemir FlexTouch U-100 Insulin 100 unit/mL (3 mL) subcutaneous pen RxNorm: 642550 Inject 150 Unit(s) Subcutaneous BID 09/04/19 21 022 Inactive venlafaxine ER 150 mg tablet,extended release 24 hr RxNorm: 381686 Take 1 Tablet(s) Oral QD 09/04/19 21 021 Inactive aspirin 81 mg tablet,delayed release RxNorm: 167811 Take 1 Tablet(s) Oral QD 09/04/19 21 021 Inactive clotrimazole-betame thasone 1 %-0.05 % topical cream RxNorm: 177589 Apply to rash on red area on left abdomen/chest Topical BID 08/10/19 21 Inactive amlodipine 5 mg tablet RxNorm: 952221 Take 1 Tablet(s) Oral QD 07/31/19 21 Inactive cephalexin 500 mg tablet RxNorm: 159314 Take 1 Tablet(s) Oral BID BID - Twice Daily 07/31/19 21 Inactive Start 08/01/20 pantoprazole 40 mg tablet,delayed release RxNorm: 160411 Take 1 Tablet(s) Oral QAM every morning 07/08/19 21 022 Inactive senna 8.6 mg tablet RxNorm: 374386 Take 1 Tablet(s) Oral QD 07/08/19 022 Inactive Novolog Flexpen U-100 Insulin aspart 100 unit/mL (3 mL) subcutaneous RxNorm: 3536228 Administer per sliding scale Milliliter(s) Subcutaneous TID 151-200: 10 u; 201-250: 20 u; 251-300: 30 u; 301-350: 40 u; 351-400: 50 u. 07/08/19 21 022 Inactive Novolog Flexpen U-100 Insulin aspart 100 unit/mL (3 mL) subcutaneous RxNorm: 0865746 Inject 85 Unit(s) Subcutaneous TID 07/08/19 022 Inactive pravastatin 80 mg tablet RxNorm: 237973 Take 1 Tablet(s) Oral QHS every night at bedtime 07/08/19 022 Inactive clotrimazole 1 % topical cream RxNorm: 298890 Apply to bilateral groin areas Topical BID 07/08/19 21 022 Inactive carbamazepine 200 mg tablet RxNorm: 463668 Take 1 Tablet(s) Oral BID 07/08/19 21 022 Inactive torsemide 20 mg tablet RxNorm: 870010 Take 1 Tablet(s) Oral QD 07/08/19 21 023 Inactive clopidogrel 75 mg tablet RxNorm: 241735 Take 1 Tablet(s) Oral QD 07/08/19 021 Inactive Blood Glucose Test strips RxNorm: Use 1 Test Strip QID at PRN 07/08/19 21 Inactive E11.42 lisinopril 5 mg tablet RxNorm: 969596 Take 1 Tablet(s) Oral QD 07/08/19 Inactive metoprolol succinate ER 200 mg tablet,extended release 24 hr RxNorm: 081753 Take 1 Tablet(s) Oral QD 07/08/19 Inactive Vitamin D3 25 mcg (1,000 unit) tablet RxNorm: 689065 Take 1 Tablet(s) Oral QD 07/08/19 Inactive isosorbide dinitrate 30 mg tablet RxNorm: 874297 Take 1 Tablet(s) Oral QD 07/08/19 Inactive Levemir FlexTouch U-100 Insulin 100 unit/mL (3 mL) subcutaneous pen RxNorm: 155080 Inject 140 Unit(s) Subcutaneous BID 07/08/19 Inactive venlafaxine 75 mg tablet RxNorm: 767782 Take 1 Tablet(s) Oral QD 07/08/19 Inactive acetaminophen 500 mg tablet RxNorm: 966160 Take 1 Tablet(s) Oral TID as needed for headache 06/18/19 Inactive acetaminophen 500 mg tablet RxNorm: 707447 Take 1 Tablet(s) Oral TID as needed for headache 06/18/19 Inactive Lyrica 100 mg capsule RxNorm: 963784 Take 1 Capsule(s) Oral QHS every night at bedtime 06/11/19 Inactive Lyrica 50 mg capsule RxNorm: 710291 Take 1 Capsule(s) Oral QAM every morning 06/10/19 21 021 Inactive hydrocortisone 2.5 % topical cream RxNorm: 110180 Apply to bilateral groin creases Topical BID 05/15/20 20 Inactive clotrimazole 1 % topical cream RxNorm: 579112 Apply to bilateral groin areas Topical BID 05/15/20 20 021 Inactive Lyrica 50 mg capsule RxNorm: 268140 Take 1 Capsule(s) Oral QAM every morning 05/14/20 20 Inactive Lyrica 100 mg capsule RxNorm: 509381 Take 1 Capsule(s) Oral QHS every night [...] Inactive Nystop 100,000 unit/gram topical powder RxNorm: 324501 Apply to abd folds, under breasts and L side of groin Topical BID x 14 days, then BID PRN 04/08/20 20 Inactive dx: yeast dermatitis Lyrica 100 mg capsule RxNorm: 183181 Take 1 Capsule(s) Oral QHS every night at bedtime 03/13/20 20 Inactive Lyrica 50 mg capsule RxNorm: 141778 Take 1 Capsule(s) Oral QAM every morning 03/13/20 20 Inactive ketoconazole 2 % shampoo RxNorm: 575945 Apply Topical two times a week with showers 03/11/20 20 Inactive cholecalciferol (vitamin D3) 50 mcg (2,000 unit) tablet RxNorm: 799073 Take 1 Tablet(s) Oral QD 03/11/20 20 Inactive Zetia 10 mg tablet RxNorm: 975646 Take 1 Tablet(s) Oral QD 03/07/20 20 021 Inactive Zetia 10 mg tablet RxNorm: 963330 Take 1 Tablet(s) Oral QD 03/07/20 20 Inactive Lyrica 50 mg capsule RxNorm: 055126 Take 1 Capsule(s) Oral QAM every morning 02/15/20 Inactive Lyrica 100 mg capsule RxNorm: 621621 Take 1 Capsule(s) Oral QHS every night at bedtime 02/15/20 Inactive Lyrica 100 mg capsule RxNorm: 074123 Take 1 Capsule(s) Oral QHS every night at bedtime 02/15/20 Inactive Lyrica 50 mg capsule RxNorm: 331744 Take 1 Capsule(s) Oral QAM every morning [...] of [facility] WPtel: [address], [address] [id number] USReferralRecords Swmqtftq25/08/2023Referral: [facility] W[address]el: [address] [id number] CARthcjwzvAjngfnsjg68/12/2022Referral: General CardiologyReferralCompleted 1Referral: General PsychologistReferralClosed Instructions Comment Date Leonid is a Male being seen living at [facility]. Initial BPS visit 01/2020. PMHx including DMII, CAD w/ 5 stents, Depression, Seizure Disorder and CKD stage 3. He moved into [facility] in 12/2019 but after a hospitalization 05/2021 he moved to the [facility] to have closer nursing attention. Sister Jyotsna involved in his care cell# [phone] Guardian: Don (tapan met in person 09/01/21), now has Lexii (same group as don)Lab Schedule: * 10/06/2022
--- OUTSIDE RECORDS SUMMARY | 2021-04-03 18:00 | XMS_ITS | CCD ---
Author Name Sandra Mandujano CNP Address [address] [facility] [address] [place] [address] Phone Organization [facility] Phone Care Team Providers Care Marinator Name Role Phone Rosalina Shirley PA-C Primary Care Provider Unavailabl e Rosalina Shirley PA-C Chronic Care Management Unavaila ble Summary Purpose DataExchange Insurance Providers Payer name Policy type / Coverage type Covered green party ID Effective Begin Date Effective End Date Medicare [place] Medicare Part B [id number] Unknown Unknown Medicaid [place] Medicare Part B [id number] Unknown Unknown Family history Runs in the family Diagnosis Age At Onset No Known Diseases N/A Social History Social History Element Codes Description Effec tive Dates Living arrangements Unknown Jail 09/03/19 [address]: 9914721 Non-Smoker / No History of Smoking 09/02/[address]: 829425768 No Alcohol Consum ption 09/02/2020 Allergies, Adverse Reactions, Alerts Substance Reaction Codes Entered Date Inactivated Date Status LISINOPRIL Iffputd5002/12/2020No Inactive DateActiveMetformin DHhJdduyit32/28/2020No Inactive DateActive Problems Condition Codes Effective Dates Condition St atus DVT (deep venous thrombosis) ICD-10: I82 .409 ICD-9: 453.4011/1ActiveHyperlipidemia associated with type 2 diabetes mellitusICD-10: E11.69 ICD-9: 250.8011ActiveHypertension associated with diabetesICD-10: E11.59 ICD-9: 250.8011ActiveSeizure disorderICD-10: G40.909 ICD-9: 345.9011/ctiveSkin tagICD-10: L91.8 ICD-9: 701.9105/31/2020ctiveStage 2 chronic 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ICD-10: E11.22 ICD-9: 250.4011/ctiveType 2 diabetes mellitus with diabetic polyneuropathy, with long-term current use of insulinICD-10: E11.42 ICD-9: 250.6011/ctiveVitamin D deficiencyICD-10: E55.9 ICD-9: 268.911/ctiveCellulitisICD-10: L03.90 ICD-9: 682.910ctiveHistory of anemia due to CKDICD-10: N18.9 ICD-9: 585.910ctiveStage 2 chronic kidney diseaseICD-10: N18.2 ICD-9: 585.210ctiveCallus of heelICD-10: L84 ICD-9: 40267/ctiveCoronary artery disease involving [place] coronary artery of [place] heart, angina presence unspecifiedICD-10: I25.10 ICD-9: 414.0109ctiveImpacted [...] 3b chronic kidney diseaseICD- 10: N18.32 ICD-9: 285.21051ResolvedDepressionICD-10: F32.9 ICD-9: 62753/ctiveGout due to renal impairmentICD-10: M10.30 ICD-9: 274.1004ctiveLong term (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 insulinICD-10: Z79.4 09/03/2020ctiveLower extremity edemaICD-10: R60.0 ICD-9: 782.304ctiveChronic kidney disease, stage 3 unspecifiedICD-10: N18.3004esolvedDandruff in adultICD-10: L21.0 ICD-9: 690.18007/08/2020ctiveContact with and (suspected) exposure to other viral communicable diseasesICD-10: Z20.828 ICD-9: V01.7902esolvedHyperhidrosis of palmsICD-10: L74.512 ICD-9: 705.1053GztbwiSsgyphnsYrzywpo46/28/2020ActiveDiabetes mellitus Type 7Tluwwud96/28/2020ActiveAnemia in chronic kidney diseaseICD-10: D63.1 02/12/2020ResolvedHyperlipidemia, unspecifiedICD-10: E78.Resolved Medications Medication Codes Instructions Start Date Stop Date Status Fill Instructions aspirin 81 mg tablet,delayed release RxNorm: 463343 Take 1 Tablet(s) Oral QD 03/31/20 022 Active Vitamin D2 1,250 mcg (50,000 unit) capsule RxNorm: 8426589 Take 1 Capsule(s) Oral QW once a week x 12 weeks 03/31/20 022 Inactive Vitamin D2 1,250 mcg (50,000 unit) capsule RxNorm: 4445362 Take 1 Capsule(s) Oral QW once a week 03/31/20 Inactive Zetia 10 mg tablet RxNorm: 245640 Take 1 Tablet(s) Oral QD 03/31/20 Active Zetia 10 mg tablet RxNorm: 934741 Take 1 Tablet(s) Oral QD 03/31/20 Inactive hydralazine 25 mg tablet RxNorm: 067664 Take 1 Tablet(s) Oral QID 03/31/20 Inactive hydralazine 25 mg tablet RxNorm: 725941 Take 1 Tablet(s) Oral QID 03/31/20 Inactive hydralazine 10 mg tablet RxNorm: 922754 Take 1 Tablet(s) Oral QID 03/03/20 Inactive cephalexin 500 mg tablet RxNorm: 423510 Take 1 Tablet(s) Oral QID 02/27/20 021 Inactive cephalexin 500 mg tablet RxNorm: 646845 Take 1 Tablet(s) Oral QID 02/27/20 Inactive lisinopril 40 mg tablet RxNorm: 795816 Take 1 Tablet(s) Oral QD 02/11/20 022 Active Eliquis 5 mg tablet RxNorm: 6631904 Take 1 Tablet(s) Oral BID 01/05/20 022 Active Eliquis 5 mg tablet RxNorm: 8546255 Take 2 Tablet(s) Oral QD 01/01/20 021 Inactive Lyrica 50 mg capsule RxNorm: 961335 Take 1 Capsule(s) Oral QAM every morning 12/24/19 021 Inactive Lyrica 100 mg capsule RxNorm: 804759 Take 1 Capsule(s) Oral QHS every night at bedtime 12/24/19 Inactive clotrimazole 1 % topical cream RxNorm: 408074 Apply to right foot and toes Topical BID 12/04/19 21 021 Inactive metoprolol succinate ER 200 mg tablet,extended release 24 hr RxNorm: 862187 Take 1 Tablet(s) Oral QD 12/04/19 022 Inactive ciprofloxacin 500 mg tablet RxNorm: 122588 Take 1 Tablet(s) Oral QD 11/30/19 Inactive DX ofloxacin otic drops Accu-Chek Guide test strips RxNorm: USE 1 TO CHECK GLUCOSE 4 TIMES DAILY AND NEEDED 11/15/19 Inactive Blood Glucose Test strips RxNorm: Use 1 Test Strip QID at PRN 11/05/19 Inactive E11.42 lisinopril 30 mg tablet RxNorm: 012302 Take 1 Tablet(s) Oral QD 10/30/19 021 Inactive lisinopril 20 mg tablet RxNorm: 913832 Take 1 Tablet(s) Oral QD 10/23/19 021 Inactive lisinopril 20 mg tablet RxNorm: 165180 Take 1 Tablet(s) Oral QD 10/23/19 Inactive lisinopril 10 mg tablet RxNorm: 821128 Take 1 Tablet(s) Oral QD 10/02/19 021 Inactive icosapent ethyl 1 gram capsule RxNorm: 1616327 Take 2 Capsule(s) (2 gm) Oral BID with meals 09/12/19 Inactive Okay to dispense one 2gm tab if you have that available. icosapent ethyl 1 gram capsule RxNorm: 7800630 Take 2 Capsule(s) Oral BID 09/12/19 021 Inactive Okay to dispense one 2gm tab if you have that available. amlodipine 10 mg tablet RxNorm: 528857 Take 1 Tablet(s) Oral QD 09/04/19 022 Inactive Levemir FlexTouch U-100 Insulin 100 unit/mL (3 mL) subcutaneous pen RxNorm: 284334 Inject 150 Unit(s) Subcutaneous BID 09/04/19 022 Inactive venlafaxine ER 150 mg tablet,extended release 24 hr RxNorm: 228316 Take 1 Tablet(s) Oral QD 09/04/19 021 Inactive aspirin 81 mg tablet,delayed release RxNorm: 381166 Take 1 Tablet(s) Oral QD 09/04/19 21 Inactive clotrimazole-betame thasone 1 %-0.05 % topical cream RxNorm: 872282 Apply to rash on red area on left abdomen/chest Topical BID 08/10/19 21 Inactive amlodipine 5 mg tablet RxNorm: 593965 Take 1 Tablet(s) Oral QD 07/31/19 Inactive cephalexin 500 mg tablet RxNorm: 947086 Take 1 Tablet(s) Oral BID BID - Twice Daily 07/31/19 Inactive Start 08/01/20 pantoprazole 40 mg tablet,delayed release RxNorm: 169072 Take 1 Tablet(s) Oral QAM every morning 07/08/19 Inactive senna 8.6 mg tablet RxNorm: 625718 Take 1 Tablet(s) Oral QD 07/08/19 Inactive Novolog Flexpen U-100 Insulin aspart 100 unit/mL (3 mL) subcutaneous RxNorm: 4113287 Administer per sliding scale Milliliter(s) Subcutaneous TID 151-200: 10 u; 201-250: 20 u; 251-300: 30 u; 301-350: 40 u; 351-400: 50 u. 07/08/19 Inactive Novolog Flexpen U-100 Insulin aspart 100 unit/mL (3 mL) subcutaneous RxNorm: 5608311 Inject 85 Unit(s) Subcutaneous TID 07/08/19 Inactive pravastatin 80 mg tablet RxNorm: 890713 Take 1 Tablet(s) Oral QHS every night at bedtime 07/08/19 022 Inactive clotrimazole 1 % topical cream RxNorm: 736461 Apply to bilateral groin areas Topical BID 07/08/19 022 Inactive carbamazepine 200 mg tablet RxNorm: 040414 Take 1 Tablet(s) Oral BID 07/08/19 022 Inactive torsemide 20 mg tablet RxNorm: 987907 Take 1 Tablet(s) Oral QD 07/08/19 022 Inactive clopidogrel 75 mg tablet RxNorm: 094560 Take 1 Tablet(s) Oral QD 07/08/19 021 Inactive Blood Glucose Test strips RxNorm: Use 1 Test Strip QID at PRN 07/08/19 21 Inactive E11.42 lisinopril 5 mg tablet RxNorm: 219914 Take 1 Tablet(s) Oral QD 07/08/19 021 Inactive metoprolol succinate ER 200 mg tablet,extended release 24 hr RxNorm: 284117 Take 1 Tablet(s) Oral QD 07/08/19 Inactive Vitamin D3 25 mcg (1,000 unit) tablet RxNorm: 179311 Take 1 Tablet(s) Oral QD 07/08/19 021 Inactive isosorbide dinitrate 30 mg tablet RxNorm: 037737 Take 1 Tablet(s) Oral QD 07/08/19 021 Inactive Levemir FlexTouch U-100 Insulin 100 unit/mL (3 mL) subcutaneous pen RxNorm: 047392 Inject 140 Unit(s) Subcutaneous BID 07/08/19 021 Inactive venlafaxine 75 mg tablet RxNorm: 505324 Take 1 Tablet(s) Oral QD 07/08/19 021 Inactive acetaminophen 500 mg tablet RxNorm: 527214 Take 1 Tablet(s) Oral TID as needed for headache 06/18/19 Inactive acetaminophen 500 mg tablet RxNorm: 122041 Take 1 Tablet(s) Oral TID as needed for headache 06/18/19 021 Inactive Lyrica 100 mg capsule RxNorm: 120631 Take 1 Capsule(s) Oral QHS every night at bedtime 06/11/19 021 Inactive Lyrica 50 mg capsule RxNorm: 048470 Take 1 Capsule(s) Oral QAM every morning 06/10/19 021 Inactive hydrocortisone 2.5 % topical cream RxNorm: 955847 Apply to bilateral groin creases Topical BID 05/15/20 20 021 Inactive clotrimazole 1 % topical cream RxNorm: 807061 Apply to bilateral groin areas Topical BID 05/15/20 20 Inactive Lyrica 50 mg capsule RxNorm: 465960 Take 1 Capsule(s) Oral QAM every morning 05/14/20 20 Inactive Lyrica 100 mg capsule RxNorm: 900210 Take 1 Capsule(s) Oral QHS every night at bedtime 05/14/20 20 Inactive Lancets,Thin 28 gauge RxNorm: Use 1 as directed QID and PRN 04/24/20 20 Inactive Blood Glucose Monitoring kit RxNorm: [...] Inactive Nystop 100,000 unit/gram topical powder RxNorm: 173320 Apply to abd folds, under breasts and L side of groin Topical BID x 14 days, then BID PRN 04/08/20 20 021 Inactive dx: yeast dermatitis Lyrica 100 mg capsule RxNorm: 162813 Take 1 Capsule(s) Oral QHS every night at bedtime 03/13/20 20 Inactive Lyrica 50 mg capsule RxNorm: 250506 Take 1 Capsule(s) Oral QAM every morning 03/13/20 20 Inactive ketoconazole 2 % shampoo RxNorm: 919588 Apply Topical two times a week with showers 03/11/20 20 Inactive cholecalciferol (vitamin D3) 50 mcg (2,000 unit) tablet RxNorm: 259226 Take 1 Tablet(s) Oral QD 03/11/20 20 021 Inactive Zetia 10 mg tablet RxNorm: 410833 Take 1 Tablet(s) Oral QD 03/07/20 Inactive Zetia 10 mg tablet RxNorm: 076353 Take 1 Tablet(s) Oral QD 03/07/20 Inactive Lyrica 50 mg capsule RxNorm: 429739 Take 1 Capsule(s) Oral QAM every morning 02/15/20 Inactive Lyrica 100 mg capsule RxNorm: 687476 Take 1 Capsule(s) Oral QHS every night at bedtime 02/15/20 Inactive Lyrica 100 mg capsule RxNorm: 203431 Take 1 Capsule(s) Oral QHS every night at bedtime 02/15/20 Inactive Lyrica 50 mg capsule RxNorm: 815353 Take 1 Capsule(s) Oral QAM every morning [...] BP > OR = 140 CPT-4: G8753 03/31/2021 CUI BP LESS 90 CPT-4: G8754 03/31/2021 Vital Signs Date Vital 03/31/2021 Blood Pressure 1: 173/79 Code: 8480-6 Heart Rate 1: 82 bpm Code: 8867-4 Respiratory Rate: 18 bpm Temperature: 36.5 (C) / 97.7 (F) Weight: 412 lbs 6 oz Code: 3141-9 Reason For Visit No Reason For Visit data Encounters Encounter Performer Location Codes Date (70537) DOMICIL VISIT EST PA T Diagnosis: Seizure disorder[ICD10: G40.909] Diagnosis: Type 2 diabetes mellitus with diabetic polyneuropathy, with long-term current use of insulin[ICD10: E11.42] Diagnosis: Hyperlipidemia associated with type 2 diabetes mellitus[ICD10: E11.69] Diagnosis: Hypertension associated with diabetes[ICD10: E11.59] Diagnosis: Stage 2 chronic 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[ICD10: E11.22] Diagnosis: DVT (deep venous thrombosis)[ICD10: I82.409] Diagnosis: Vitamin D deficiency[ICD10: E55.9] Diagnosis: Skin tag[ICD10: L91.8]Sandra Plasencia - ElkoCPT-4: [id number] 03/31/2021 Plan of Care Planned Activity Notes Codes Status Date Referral: [facility]inology [facility] WPtel: [address] [facility] [address] [id number] FCEtyetoybLvaexxvjw57/12/2022Patient Education: Patient Medication Summary Vhzgbfbcn73/15/2021atient Education: Influenza EhekgilXxjuuqbox70/15/2021 Referral: General AdrfmogaxwJqabkflsTsnjnvuiu15/20/2021Referral: General NephrologyReferralNo Update From Field Team Instructions Comment Date Epilepsy Serum Carbamazepine WNL. No need for changes today.?? Vitamin D Deficiency Recommend we increase supp to 50,000unit cap daily x 12w Skin tag 3 skin tags on right upper arm/axilla treated with liquid nitrogen without complication.?? 3 skin tags on right upper chest treated with liquid nitrogen without complication. DVT (deep venous thrombosis) Continue Eliquis Diabetes DMII: Nursing staff sent A1C over to his endocrinologists office. 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 HLD: Start Zetia 10mg?? .03/31/2021
--- OUTSIDE RECORDS SUMMARY | 2021-05-04 18:00 | XMS_ITS | CCD ---
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 Value Stream Leader Name Role Phone Tapan Shirley PA-C Primary Care Provider Unavailabl e Tapan Shirley PA-C Chronic Care Management Unavaila ble Summary Purpose DataExchange Insurance Providers Payer name Policy type / Coverage type Covered alliance party ID Effective Begin Date Effective End Date [place] Medicare Part B [id number] Unknown Unknown [place] Medicare Part B [id number] Unknown Unknown Family history Runs in the family Diagnosis Age At Onset No Known Diseases N/A Social History Social History Element Codes Description Effec tive Dates Living arrangements Unknown [facility] 09/03/[address]: 0426523 Non-Smoker / No History of Smoking 09/02/[address]: 047571976 No Alcohol Consum ption 09/02/2020 Allergies, Adverse Reactions, Alerts Substance Reaction Codes Entered Date Inactivated Date Status LISINOPRIL RxNorm: 6928727No Inactive DateActiveMetformin AWzCcvbmrq63/28/2020No Inactive DateActive Problems Condition Codes Effective Dates Condition St atus Depression ICD-10: F32.9 ICD-9: 69754ctiveHyperlipidemia associated with type 2 diabetes mellitusICD-10: E11.69 ICD-9: 250.80107/06/2020ctiveHypertension associated with diabetesICD-10: E11.59 ICD-9: 250.80107/06/2020ctiveLearning disabilityICD-10: F81.9 ICD-9: 315.212ctiveSeizure disorderICD-10: G40.909 ICD-9: 345.9012ctiveStage 2 chronic 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ICD-10: E11.22 ICD-9: 250.4012ctiveType 2 diabetes mellitus with diabetic polyneuropathy, with long-term current use of insulinICD-10: E11.42 ICD-9: 250.6012ctiveDVT (deep venous thrombosis)ICD-10: I82.409 ICD-9: 453.4011/ctiveSkin tagICD-10: L91.8 ICD-9: 701.911/ctiveVitamin D deficiencyICD-10: E55.9 ICD-9: 268.911/ctiveCellulitisICD-10: L03.90 ICD-9: 682.910/ctiveHistory of anemia due to CKDICD-10: N18.9 ICD-9: 585.910/ctiveStage 2 chronic kidney diseaseICD-10: N18.2 ICD-9: 585.210/ctiveCallus of heelICD-10: L84 ICD-9: 61667/ctiveCoronary artery disease involving [place] coronary artery of [place] heart, angina presence unspecifiedICD-10: I25.10 ICD-9: 414.0109ctiveImpacted cerumen, left earICD-10: H61.22 ICD-9: 380.408/ctiveInappropriate sexual behaviorICD-10: Z72.89 ICD-9: 312.8908ctiveContact with and (suspected) exposure to covid-19 ICD-10: Z20.822 ICD-9: V01.7908esolvedOther infective acute otitis externa of left ear ICD-10: H60.392 ICD-9: 380.1008/esolvedScrotal skin lesionICD-10: N50.9 ICD-9: 608.908/esolvedTinea pedisICD-10: B35.3 ICD-9: 110.408esolvedVisit for preventive health examinationICD-10: Z00.00 ICD-9: V70.008/esolvedCandidiasis, intertrigoICD-10: B37.2 ICD-9: 112.306/ctiveSecondary hypertensionICD-10: I15.9 ICD-9: 405.9906ctiveAnemia due to stage 3b chronic kidney diseaseICD- 10: N18.32 ICD-9: 285.21010/01/2020esolvedGout due to renal impairmentICD-10: M10.30 ICD-9: 274.1004ctiveLong term (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 insulinICD-10: Z79.4 09/03/2020ctiveLower extremity edemaICD-10: R60.0 ICD-9: 782.304ctiveChronic kidney disease, stage 3 unspecifiedICD-10: N18.30009/03/2020esolvedDandruff in adultICD-10: L21.0 ICD-9: 690.18007/08/2020ctiveContact with and (suspected) exposure to other viral communicable diseasesICD-10: Z20.828 ICD-9: V01.7902esolvedHyperhidrosis of palmsICD-10: L74.512 ICD-9: 705.8799WlaegbTgkztaovWpvjkce96/28/2020ActiveDiabetes mellitus Type 9Lhhsomz69/28/2020ActiveAnemia in chronic kidney diseaseICD-10: D63.1 02/12/2020ResolvedHyperlipidemia, unspecifiedICD-10: E78.Resolved Medications Medication Codes Instructions Start Date Stop Date Status Fill Instructions hydralazine 50 mg tablet RxNorm: 358923 Take 1 Tablet(s) Oral QID 05/05/20 21 022 Inactive venlafaxine ER 225 mg tablet,extended release 24 hr RxNorm: 480430 Take 1 Tablet(s) Oral QD 05/05/20 21 021 Inactive venlafaxine ER 225 mg tablet,extended release 24 hr RxNorm: 837320 Take 1 Tablet(s) Oral QD 05/05/20 21 022 Inactive isosorbide mononitrate ER 30 mg tablet,extended release 24 hr RxNorm: 734127 Take 1 Tablet(s) Oral QD 05/05/20 21 No Stop Date Active hydralazine 50 mg tablet RxNorm: 560907 Take 1 Tablet(s) Oral QID 05/05/20 21 Inactive aspirin 81 mg tablet,delayed release RxNorm: 348904 Take 1 Tablet(s) Oral QD 03/31/20 Inactive Vitamin D2 1,250 mcg (50,000 unit) capsule RxNorm: 2021651 Take 1 Capsule(s) Oral QW once a week x 12 weeks 03/31/20 Inactive Zetia 10 mg tablet RxNorm: 164827 Take 1 Tablet(s) Oral QD 03/31/20 Inactive Vitamin D2 1,250 mcg (50,000 unit) capsule RxNorm: 9994859 Take 1 Capsule(s) Oral QW once a week 03/31/20 Inactive Zetia 10 mg tablet RxNorm: 494704 Take 1 Tablet(s) Oral QD 03/31/20 Inactive hydralazine 25 mg tablet RxNorm: 226849 Take 1 Tablet(s) Oral QID 03/31/20 021 Inactive hydralazine 25 mg tablet RxNorm: 546902 Take 1 Tablet(s) Oral QID 03/31/20 021 Inactive hydralazine 10 mg tablet RxNorm: 063324 Take 1 Tablet(s) Oral QID 03/03/20 021 Inactive cephalexin 500 mg tablet RxNorm: 474289 Take 1 Tablet(s) Oral QID 02/27/20 021 Inactive cephalexin 500 mg tablet RxNorm: 688437 Take 1 Tablet(s) Oral QID 02/27/20 021 Inactive lisinopril 40 mg tablet RxNorm: 453631 Take 1 Tablet(s) Oral QD 02/11/20 21 023 Inactive Eliquis 5 mg tablet RxNorm: 5514882 Take 1 Tablet(s) Oral BID 01/05/20 21 022 Inactive Eliquis 5 mg tablet RxNorm: 1186507 Take 2 Tablet(s) Oral QD 01/01/20 21 021 Inactive Lyrica 50 mg capsule RxNorm: 418719 Take 1 Capsule(s) Oral QAM every morning 12/24/19 21 021 Inactive Lyrica 100 mg capsule RxNorm: 143078 Take 1 Capsule(s) Oral QHS every night at bedtime 12/24/19 21 021 Inactive clotrimazole 1 % topical cream RxNorm: 592829 Apply to right foot and toes Topical BID 12/04/19 21 023 Inactive metoprolol succinate ER 200 mg tablet,extended release 24 hr RxNorm: 460333 Take 1 Tablet(s) Oral QD 12/04/19 21 023 Inactive ciprofloxacin 500 mg tablet RxNorm: 081995 Take 1 Tablet(s) Oral QD 11/30/19 21 021 Inactive DX ofloxacin otic drops Accu-Chek Guide test strips RxNorm: USE 1 TO CHECK GLUCOSE 4 TIMES DAILY AND NEEDED 11/15/19 21 023 Inactive Blood Glucose Test strips RxNorm: Use 1 Test Strip QID at PRN 11/05/19 21 023 Inactive E11.42 lisinopril 30 mg tablet RxNorm: 188877 Take 1 Tablet(s) Oral QD 10/30/19 021 Inactive lisinopril 20 mg tablet RxNorm: 171978 Take 1 Tablet(s) Oral QD 10/23/19 21 021 Inactive lisinopril 20 mg tablet RxNorm: 847656 Take 1 Tablet(s) Oral QD 10/23/19 21 021 Inactive lisinopril 10 mg tablet RxNorm: 830291 Take 1 Tablet(s) Oral QD 10/02/19 21 021 Inactive icosapent ethyl 1 gram capsule RxNorm: 5968094 Take 2 Capsule(s) (2 gm) Oral BID with meals 09/12/19 21 022 Inactive Okay to dispense one 2gm tab if you have that available. icosapent ethyl 1 gram capsule RxNorm: 6470267 Take 2 Capsule(s) Oral BID 09/12/19 21 021 Inactive Okay to dispense one 2gm tab if you have that available. amlodipine 10 mg tablet RxNorm: 765775 Take 1 Tablet(s) Oral QD 09/04/19 Inactive Levemir FlexTouch U-100 Insulin 100 unit/mL (3 mL) subcutaneous pen RxNorm: 443853 Inject 150 Unit(s) Subcutaneous BID 09/04/19 Inactive aspirin 81 mg tablet,delayed release RxNorm: 742176 Take 1 Tablet(s) Oral QD 09/04/19 Inactive venlafaxine ER 150 mg tablet,extended release 24 hr RxNorm: 257360 Take 1 Tablet(s) Oral QD 09/04/19 Inactive clotrimazole-betame thasone 1 %-0.05 % topical cream RxNorm: 690233 Apply to rash on red area on left abdomen/chest Topical BID 08/10/19 Inactive amlodipine 5 mg tablet RxNorm: 703454 Take 1 Tablet(s) Oral QD 07/31/19 Inactive cephalexin 500 mg tablet RxNorm: 572593 Take 1 Tablet(s) Oral BID BID - Twice Daily 07/31/19 Inactive Start 08/01/20 pantoprazole 40 mg tablet,delayed release RxNorm: 167379 Take 1 Tablet(s) Oral QAM every morning 07/08/19 Inactive senna 8.6 mg tablet RxNorm: 454355 Take 1 Tablet(s) Oral QD 07/08/19 022 Inactive Novolog Flexpen U-100 Insulin aspart 100 unit/mL (3 mL) subcutaneous RxNorm: 5219998 Administer per sliding scale Milliliter(s) Subcutaneous TID 151-200: 10 u; 201-250: 20 u; 251-300: 30 u; 301-350: 40 u; 351-400: 50 u. 07/08/19 Inactive Novolog Flexpen U-100 Insulin aspart 100 unit/mL (3 mL) subcutaneous RxNorm: 4433554 Inject 85 Unit(s) Subcutaneous TID 07/08/19 022 Inactive pravastatin 80 mg tablet RxNorm: 817603 Take 1 Tablet(s) Oral QHS every night at bedtime 07/08/19 022 Inactive clotrimazole 1 % topical cream RxNorm: 000432 Apply to bilateral groin areas Topical BID 07/08/19 21 022 Inactive carbamazepine 200 mg tablet RxNorm: 870967 Take 1 Tablet(s) Oral BID 07/08/19 022 Inactive torsemide 20 mg tablet RxNorm: 907362 Take 1 Tablet(s) Oral QD 07/08/19 21 023 Inactive clopidogrel 75 mg tablet RxNorm: 879493 Take 1 Tablet(s) Oral QD 07/08/19 021 Inactive Blood Glucose Test strips RxNorm: Use 1 Test Strip QID at PRN 07/08/19 021 Inactive E11.42 lisinopril 5 mg tablet RxNorm: 092765 Take 1 Tablet(s) Oral QD 07/08/19 021 Inactive metoprolol succinate ER 200 mg tablet,extended release 24 hr RxNorm: 287899 Take 1 Tablet(s) Oral QD 07/08/19 021 Inactive Vitamin D3 25 mcg (1,000 unit) tablet RxNorm: 717342 Take 1 Tablet(s) Oral QD 07/08/19 021 Inactive isosorbide dinitrate 30 mg tablet RxNorm: 789365 Take 1 Tablet(s) Oral QD 07/08/19 021 Inactive Levemir FlexTouch U-100 Insulin 100 unit/mL (3 mL) subcutaneous pen RxNorm: 553054 Inject 140 Unit(s) Subcutaneous BID 07/08/19 021 Inactive venlafaxine 75 mg tablet RxNorm: 332894 Take 1 Tablet(s) Oral QD 07/08/19 021 Inactive acetaminophen 500 mg tablet RxNorm: 953625 Take 1 Tablet(s) Oral TID as needed for headache 06/18/19 021 Inactive acetaminophen 500 mg tablet RxNorm: 827695 Take 1 Tablet(s) Oral TID as needed for headache 06/18/19 021 Inactive Lyrica 100 mg capsule RxNorm: 016011 Take 1 Capsule(s) Oral QHS every night at bedtime 06/11/19 21 021 Inactive Lyrica 50 mg capsule RxNorm: 776450 Take 1 Capsule(s) Oral QAM every morning 06/10/19 21 021 Inactive hydrocortisone 2.5 % topical cream RxNorm: 474087 Apply to bilateral groin creases Topical BID 05/15/20 20 021 Inactive clotrimazole 1 % topical cream RxNorm: 601969 Apply to bilateral groin areas Topical BID 05/15/20 20 021 Inactive Lyrica 50 mg capsule RxNorm: 584520 Take 1 Capsule(s) Oral QAM every morning 05/14/20 20 020 Inactive Lyrica 100 mg capsule RxNorm: 849925 Take 1 Capsule(s) Oral QHS every night [...] Inactive Nystop 100,000 unit/gram topical powder RxNorm: 993773 Apply to abd folds, under breasts and L side of groin Topical BID x 14 days, then BID PRN 04/08/20 20 021 Inactive dx: yeast dermatitis Lyrica 100 mg capsule RxNorm: 404041 Take 1 Capsule(s) Oral QHS every night at bedtime 03/13/20 20 Inactive Lyrica 50 mg capsule RxNorm: 984892 Take 1 Capsule(s) Oral QAM every morning 03/13/20 Inactive ketoconazole 2 % shampoo RxNorm: 942993 Apply Topical two times a week with showers 03/11/20 Inactive cholecalciferol (vitamin D3) 50 mcg (2,000 unit) tablet RxNorm: 796217 Take 1 Tablet(s) Oral QD 03/11/20 Inactive Zetia 10 mg tablet RxNorm: 276376 Take 1 Tablet(s) Oral QD 03/07/20 Inactive Zetia 10 mg tablet RxNorm: 412223 Take 1 Tablet(s) Oral QD 03/07/20 Inactive Lyrica 50 mg capsule RxNorm: 125178 Take 1 Capsule(s) Oral QAM every morning 02/15/20 Inactive Lyrica 100 mg capsule RxNorm: 551060 Take 1 Capsule(s) Oral QHS every night at bedtime 02/15/20 Inactive Lyrica 100 mg capsule RxNorm: 560770 Take 1 Capsule(s) Oral QHS every night at bedtime 02/15/20 Inactive Lyrica 50 mg capsule RxNorm: 940242 Take 1 Capsule(s) Oral QAM every morning [...] Codes Status Date Referral: [facility] WPtel: [address] [id number] USReferralRecords [id number]/08/2023Referral: [facility] WPtel: [address] [id number] BSUgfiarijBteurmiii68/12/2022Referral: General CardiologyReferralCompleted 1Referral: General PsychologistReferralClosed Instructions Comment Date Leonid is a Male being seen living at [facility]. Initial BPS visit 01/2020. PMHx including DMII, CAD w/ 5 stents, Depression, Seizure Disorder and CKD stage 3. He moved into [facility] in 12/2019 but after a hospitalization 05/2021 he moved to [facility] to have closer nursing attention. Sister Jyotsna involved in his care cell# [phone] Guardian: Don (tapan met in person 09/01/21), now has Lexii (same group as don)Lab Schedule: * 10/06/2022
--- OUTSIDE RECORDS SUMMARY | 2021-05-08 18:00 | XMS_ITS | CCD ---
Author Name Sandra Mandujano CNP Address [address] [place] [address] Phone Organization [facility] Phone Care Team Providers Care Batcher Operator Name Role Phone Tapan Shirley PA-C Primary Care Provider Unavailabl e Tapan Shirley PA-C Chronic Care Management Unavaila ble Summary Purpose DataExchange Insurance Providers Payer name Policy type / Coverage type Covered constitution party ID Effective Begin Date Effective End Date Medicare [place] Medicare Part B [id number] Unknown Unknown Medicaid [place] Medicare Part B [id number] Unknown Unknown Family history Runs in the family Diagnosis Age At Onset No Known Diseases N/A Social History Social History Element Codes Description Effec tive Dates Living arrangements Unknown Detention 09/03/[address]: 1082222 Non-Smoker / No History of Smoking 09/02/[address]: 337615449 No Alcohol Consum ption 09/02/2020 Allergies, Adverse Reactions, Alerts Substance Reaction Codes Entered Date Inactivated Date Status LISINOPRIL RxNorm: 4243119No Inactive DateActiveMetformin OVuQiohchw59/28/2020No Inactive DateActive Problems Condition Codes Effective Dates Condition St atus Depression ICD-10: F32.9 ICD-9: 517551ActiveHyperlipidemia associated with type 2 diabetes mellitusICD-10: E11.69 ICD-9: 250.80121ActiveHypertension associated with diabetesICD-10: E11.59 ICD-9: 250.8011ActiveLearning disabilityICD-10: F81.9 ICD-9: 315.2121ActiveSeizure disorderICD-10: G40.909 ICD-9: 345.90121ActiveStage 2 chronic 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ICD-10: E11.22 ICD-9: 250.4012/ctiveType 2 diabetes mellitus with diabetic polyneuropathy, with long-term current use of insulinICD-10: E11.42 ICD-9: 250.6012ctiveDVT (deep venous thrombosis)ICD-10: I82.409 ICD-9: 453.40105/31/2020ctiveSkin tagICD-10: L91.8 ICD-9: 701.9105/31/2020ctiveVitamin D deficiencyICD-10: E55.9 ICD-9: 268.911ctiveCellulitisICD-10: L03.90 ICD-9: 682.91ctiveHistory of anemia due to CKDICD-10: N18.9 ICD-9: 585.910ctiveStage 2 chronic kidney diseaseICD-10: N18.2 ICD-9: 585.210ctiveCallus of heelICD-10: L84 ICD-9: 12486ctiveCoronary artery disease involving upper [place] coronary artery of upper [place] heart, angina presence unspecifiedICD-10: I25.10 ICD-9: 414.0109ctiveImpacted [...] 3b chronic kidney diseaseICD- 10: N18.32 ICD-9: 285.2105esolvedGout due to renal impairmentICD-10: M10.30 ICD-9: 274.1004ctiveLong term (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 insulinICD-10: Z79.4 09/03/2020ctiveLower extremity edemaICD-10: R60.0 ICD-9: 782.304ctiveChronic kidney disease, stage 3 unspecifiedICD-10: N18.3004esolvedDandruff in adultICD-10: L21.0 ICD-9: 690.18007/08/2020ctiveContact with and (suspected) exposure to other viral communicable diseasesICD-10: Z20.828 ICD-9: V01.7902esolvedHyperhidrosis of palmsICD-10: L74.512 ICD-9: 705.0049RzelotRqdbonisFjmbxog75/28/2020ActiveDiabetes mellitus Type 8Jajjdzt29/28/2020ActiveAnemia in chronic kidney diseaseICD-10: D63.1 02/12/2020ResolvedHyperlipidemia, unspecifiedICD-10: E78.Resolved Medications Medication Codes Instructions Start Date Stop Date Status Fill Instructions hydralazine 50 mg tablet RxNorm: 100225 Take 1 Tablet(s) Oral QID 05/05/20 21 022 Inactive venlafaxine ER 225 mg tablet,extended release 24 hr RxNorm: 158459 Take 1 Tablet(s) Oral QD 05/05/20 21 021 Inactive venlafaxine ER 225 mg tablet,extended release 24 hr RxNorm: 617450 Take 1 Tablet(s) Oral QD 12/ 022 Inactive isosorbide mononitrate ER 30 mg tablet,extended release 24 hr RxNorm: 931847 Take 1 Tablet(s) Oral QD 05/05/20 21 No Stop Date Active hydralazine 50 mg tablet RxNorm: 507165 Take 1 Tablet(s) Oral QID 05/05/20 21 021 Inactive aspirin 81 mg tablet,delayed release RxNorm: 315639 Take 1 Tablet(s) Oral QD 03/31/20 022 Inactive Vitamin D2 1,250 mcg (50,000 unit) capsule RxNorm: 7211458 Take 1 Capsule(s) Oral QW once a week x 12 weeks 03/31/20 Inactive Zetia 10 mg tablet RxNorm: 556996 Take 1 Tablet(s) Oral QD 03/31/20 Inactive Vitamin D2 1,250 mcg (50,000 unit) capsule RxNorm: 1520572 Take 1 Capsule(s) Oral QW once a week 03/31/20 021 Inactive Zetia 10 mg tablet RxNorm: 227966 Take 1 Tablet(s) Oral QD 03/31/20 Inactive hydralazine 25 mg tablet RxNorm: 917014 Take 1 Tablet(s) Oral QID 03/31/20 21 021 Inactive hydralazine 25 mg tablet RxNorm: 395361 Take 1 Tablet(s) Oral QID 03/31/20 021 Inactive hydralazine 10 mg tablet RxNorm: 100937 Take 1 Tablet(s) Oral QID 03/03/20 021 Inactive cephalexin 500 mg tablet RxNorm: 783738 Take 1 Tablet(s) Oral QID 02/27/20 021 Inactive cephalexin 500 mg tablet RxNorm: 992080 Take 1 Tablet(s) Oral QID 02/27/20 21 021 Inactive lisinopril 40 mg tablet RxNorm: 431111 Take 1 Tablet(s) Oral QD 02/11/20 21 023 Inactive Eliquis 5 mg tablet RxNorm: 6378105 Take 1 Tablet(s) Oral BID 01/05/20 022 Inactive Eliquis 5 mg tablet RxNorm: 6155528 Take 2 Tablet(s) Oral QD 01/01/20 021 Inactive Lyrica 50 mg capsule RxNorm: 495690 Take 1 Capsule(s) Oral QAM every morning 12/24/19 021 Inactive Lyrica 100 mg capsule RxNorm: 444831 Take 1 Capsule(s) Oral QHS every night at bedtime 12/24/19 021 Inactive clotrimazole 1 % topical cream RxNorm: 002799 Apply to right foot and toes Topical BID 12/04/19 21 023 Inactive metoprolol succinate ER 200 mg tablet,extended release 24 hr RxNorm: 092199 Take 1 Tablet(s) Oral QD 12/04/19 023 Inactive ciprofloxacin 500 mg tablet RxNorm: 218552 Take 1 Tablet(s) Oral QD 11/30/19 021 Inactive DX ofloxacin otic drops Accu-Chek Guide test strips RxNorm: USE 1 TO CHECK GLUCOSE 4 TIMES DAILY AND NEEDED 11/15/19 21 023 Inactive Blood Glucose Test strips RxNorm: Use 1 Test Strip QID at PRN 11/05/19 21 023 Inactive E11.42 lisinopril 30 mg tablet RxNorm: 198576 Take 1 Tablet(s) Oral QD 10/30/19 021 Inactive lisinopril 20 mg tablet RxNorm: 151913 Take 1 Tablet(s) Oral QD 10/23/19 021 Inactive lisinopril 20 mg tablet RxNorm: 824497 Take 1 Tablet(s) Oral QD 10/23/19 21 021 Inactive lisinopril 10 mg tablet RxNorm: 455742 Take 1 Tablet(s) Oral QD 10/02/19 21 021 Inactive icosapent ethyl 1 gram capsule RxNorm: 3926919 Take 2 Capsule(s) (2 gm) Oral BID with meals 09/12/19 21 022 Inactive Okay to dispense one 2gm tab if you have that available. icosapent ethyl 1 gram capsule RxNorm: 6265166 Take 2 Capsule(s) Oral BID 09/12/19 21 021 Inactive Okay to dispense one 2gm tab if you have that available. amlodipine 10 mg tablet RxNorm: 144228 Take 1 Tablet(s) Oral QD 09/04/19 022 Inactive Levemir FlexTouch U-100 Insulin 100 unit/mL (3 mL) subcutaneous pen RxNorm: 527683 Inject 150 Unit(s) Subcutaneous BID 09/04/19 21 022 Inactive aspirin 81 mg tablet,delayed release RxNorm: 683343 Take 1 Tablet(s) Oral QD 09/04/19 21 Inactive venlafaxine ER 150 mg tablet,extended release 24 hr RxNorm: 222089 Take 1 Tablet(s) Oral QD 09/04/19 Inactive clotrimazole-betame thasone 1 %-0.05 % topical cream RxNorm: 850992 Apply to rash on red area on left abdomen/chest Topical BID 08/10/19 21 021 Inactive amlodipine 5 mg tablet RxNorm: 649740 Take 1 Tablet(s) Oral QD 07/31/19 Inactive cephalexin 500 mg tablet RxNorm: 066537 Take 1 Tablet(s) Oral BID BID - Twice Daily 07/31/19 021 Inactive Start 08/01/20 pantoprazole 40 mg tablet,delayed release RxNorm: 728383 Take 1 Tablet(s) Oral QAM every morning 07/08/19 022 Inactive senna 8.6 mg tablet RxNorm: 110069 Take 1 Tablet(s) Oral QD 07/08/19 022 Inactive Novolog Flexpen U-100 Insulin aspart 100 unit/mL (3 mL) subcutaneous RxNorm: 3237768 Administer per sliding scale Milliliter(s) Subcutaneous TID 151-200: 10 u; 201-250: 20 u; 251-300: 30 u; 301-350: 40 u; 351-400: 50 u. 07/08/19 21 022 Inactive Novolog Flexpen U-100 Insulin aspart 100 unit/mL (3 mL) subcutaneous RxNorm: 0229567 Inject 85 Unit(s) Subcutaneous TID 07/08/19 022 Inactive pravastatin 80 mg tablet RxNorm: 151764 Take 1 Tablet(s) Oral QHS every night at bedtime 07/08/19 022 Inactive clotrimazole 1 % topical cream RxNorm: 791213 Apply to bilateral groin areas Topical BID 07/08/19 21 Inactive carbamazepine 200 mg tablet RxNorm: 513920 Take 1 Tablet(s) Oral BID 07/08/19 Inactive torsemide 20 mg tablet RxNorm: 153331 Take 1 Tablet(s) Oral QD 07/08/19 21 023 Inactive clopidogrel 75 mg tablet RxNorm: 679025 Take 1 Tablet(s) Oral QD 07/08/19 021 Inactive Blood Glucose Test strips RxNorm: Use 1 Test Strip QID at PRN 07/08/19 21 Inactive E11.42 lisinopril 5 mg tablet RxNorm: 571277 Take 1 Tablet(s) Oral QD 07/08/19 Inactive metoprolol succinate ER 200 mg tablet,extended release 24 hr RxNorm: 255454 Take 1 Tablet(s) Oral QD 07/08/19 021 Inactive Vitamin D3 25 mcg (1,000 unit) tablet RxNorm: 470872 Take 1 Tablet(s) Oral QD 07/08/19 021 Inactive isosorbide dinitrate 30 mg tablet RxNorm: 983714 Take 1 Tablet(s) Oral QD 07/08/19 21 021 Inactive Levemir FlexTouch U-100 Insulin 100 unit/mL (3 mL) subcutaneous pen RxNorm: 311288 Inject 140 Unit(s) Subcutaneous BID 07/08/19 21 021 Inactive venlafaxine 75 mg tablet RxNorm: 917304 Take 1 Tablet(s) Oral QD 07/08/19 021 Inactive acetaminophen 500 mg tablet RxNorm: 936133 Take 1 Tablet(s) Oral TID as needed for headache 06/18/19 21 021 Inactive acetaminophen 500 mg tablet RxNorm: 693425 Take 1 Tablet(s) Oral TID as needed for headache 06/18/19 21 021 Inactive Lyrica 100 mg capsule RxNorm: 830518 Take 1 Capsule(s) Oral QHS every night at bedtime 06/11/19 21 021 Inactive Lyrica 50 mg capsule RxNorm: 482334 Take 1 Capsule(s) Oral QAM every morning 06/10/19 21 021 Inactive hydrocortisone 2.5 % topical cream RxNorm: 779146 Apply to bilateral groin creases Topical BID 05/15/20 20 021 Inactive clotrimazole 1 % topical cream RxNorm: 445554 Apply to bilateral groin areas Topical BID 05/15/20 20 021 Inactive Lyrica 50 mg capsule RxNorm: 468063 Take 1 Capsule(s) Oral QAM every morning 05/14/20 20 020 Inactive Lyrica 100 mg capsule RxNorm: 858346 Take 1 Capsule(s) Oral QHS every night [...] Inactive Nystop 100,000 unit/gram topical powder RxNorm: 025195 Apply to abd folds, under breasts and L side of groin Topical BID x 14 days, then BID PRN 04/08/20 Inactive dx: yeast dermatitis Lyrica 100 mg capsule RxNorm: 362436 Take 1 Capsule(s) Oral QHS every night at bedtime 03/13/20 Inactive Lyrica 50 mg capsule RxNorm: 999138 Take 1 Capsule(s) Oral QAM every morning 03/13/20 Inactive ketoconazole 2 % shampoo RxNorm: 694169 Apply Topical two times a week with showers 03/11/20 Inactive cholecalciferol (vitamin D3) 50 mcg (2,000 unit) tablet RxNorm: 594895 Take 1 Tablet(s) Oral QD 03/11/20 Inactive Zetia 10 mg tablet RxNorm: 991516 Take 1 Tablet(s) Oral QD 03/07/20 Inactive Zetia 10 mg tablet RxNorm: 211765 Take 1 Tablet(s) Oral QD 03/07/20 Inactive Lyrica 50 mg capsule RxNorm: 435057 Take 1 Capsule(s) Oral QAM every morning 02/15/20 Inactive Lyrica 100 mg capsule RxNorm: 293325 Take 1 Capsule(s) Oral QHS every night at bedtime 02/15/20 Inactive Lyrica 100 mg capsule RxNorm: 586387 Take 1 Capsule(s) Oral QHS every night at bedtime 02/15/20 Inactive Lyrica 50 mg capsule RxNorm: 651081 Take 1 Capsule(s) Oral QAM every morning [...] Item Code Result Date S ervice Location PHQ-9 PHQ9 42159-1 19 05/05/2021 Unknown Procedures Procedure Codes Date SYS BP > OR = 140 CPT-4: G8753 05/05/2021 CUI BP LESS 90 CPT-4: G8754 05/05/2021 POS CLIN DEPRES SCRN F/U DOC SNOMED CT: 67299850 CPT-4: D59288905/05/2021 Vital Signs Date Vital 05/05/2021 Blood Pressure 1: 147/81 Code: 8480-6 Heart Rate 1: 74 bpm Code: 8867-4 Respiratory Rate: 16 bpm Temperature: 36.7 (C) / 98.0 (F) Weight: 417 lbs 10 oz Code: 3141-9 Reason For Visit No Reason For Visit data Encounters Encounter Performer Location Location Address Codes Cristiano e ([id number]) DOMICIL VISIT EST CA T Diagnosis: Seizure disorder[ICD10: G40.909] Diagnosis: Depression[ICD10: F32.9] Diagnosis: Hypertension associated with diabetes[ICD10: E11.59] Diagnosis: Hyperlipidemia associated with type 2 diabetes mellitus[ICD10: E11.69] Diagnosis: Stage 2 chronic 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[ICD10: E11.22] Diagnosis: Type 2 diabetes mellitus with diabetic polyneuropathy, with long-term current use of insulin[ICD10: E11.42] Diagnosis: Learning disability[ICD10: F81.9]Sandra [place] [address] [place], [place] [address]EKI-9: [id number]/06/2020 Plan of Care Planned Activity Notes Codes Status Date Referral: [facility] WPtel: [address], [address] [id number] USReferralRecords Lueygmji76/08/2023Referral: [facility] CARLO WPtel: [address] [id number] RWMkpeomiwCfjkkaqbr58/12/2022atient Education: Patient Medication Summary Qzgtfaetu64/20/2021Patient Education: Alzheimer''s PbkktkgRtrkmtaiu37/20/2021 Patient Education: Influenza NhkjxkoKfyxcruxo45/20/2021atient Education: WfbxkfxnBwzgutamy39/20/2021eferral: General CardiologyReferralCompleted 01/03/2021eferral: General PsychologistReferralClosed Instructions Comment Date Leonid is a Male being seen living at [facility]. Initial BPS visit 01/2020. PMHx including DMII, CAD w/ 5 stents, Depression, Seizure Disorder and CKD stage 3. He moved into [facility] in 12/2019 but after a hospitalization 05/2021 [facility] nursing attention. Sister Jyotsna involved in his care cell# [phone] Guardian: Don (tapan met in person 09/01/21), now has Lexii (same group as don)Lab Schedule: * 10/06/2022 Diabetes HTN: Increasing Hydralazine to 50mg Epilepsy No recent changes in seizure activity. Stable, continue current treatment plan.?? Learning disability Patient lives in an appropriate setting for their needs. Patient receives help from 24/hr fire support man. Depression Increasing Venlafaxine .05/05/2021
--- OUTSIDE RECORDS SUMMARY | 2021-06-01 18:00 | XMS_ITS | CCD ---
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 Warehouse Team Leader Name Role Phone Tapan Shirley PA-C Primary Care Provider Unavailabl e Tapan Shirley PA-C Chronic Care Management Unavaila ble Summary Purpose DataExchange Insurance Providers Payer name Policy type / Coverage type Covered green party ID Effective Begin Date Effective End Date Medicare [place] Medicare Part B [id number] Unknown Unknown [place] Medicare Part B [id number] Unknown Unknown Family history Runs in the family Diagnosis Age At Onset No Known Diseases N/A Social History Social History Element Codes Description Effec tive Dates Living arrangements Unknown Mcfp 09/03/[address]: 0065135 Non-Smoker / No History of Smoking 09/02/[address]: 617586582 No Alcohol Consum ption 09/02/2020 Allergies, Adverse Reactions, Alerts Substance Reaction Codes Entered Date Inactivated Date Status LISINOPRIL RxNorm: 6643215No Inactive DateActiveMetformin CGcEkidzpv35/28/2020No Inactive DateActive Problems Condition Codes Effective Dates Condition St atus Depression ICD-10: F32.9 ICD-9: 03672ctiveHyperlipidemia associated with type 2 diabetes mellitusICD-10: E11.69 [...] N18.2 ICD-9: 585.210/ctiveCallus of heelICD-10: L84 ICD-9: 91959/ctiveCoronary artery disease involving [place] coronary artery of [place] heart, angina presence unspecifiedICD-10: I25.10 ICD-9: 414.0109ctiveImpacted [...] Z20.828 ICD-9: V01.7902esolvedHyperhidrosis of palmsICD-10: L74.512 ICD-9: 705.3914BftdlqVjiuvdheSwxmtrm66/28/2020ActiveDiabetes mellitus Type 4Brpdxpe30/28/2020ActiveAnemia in chronic kidney diseaseICD-10: D63.1 02/12/2020ResolvedHyperlipidemia, unspecifiedICD-10: E78.509Resolved Medications Medication Codes Instructions Start Date Stop Date Status Fill Instructions hydralazine 50 mg tablet RxNorm: 979525 Take 1 Tablet(s) Oral QID 05/05/20 21 022 Inactive venlafaxine ER 225 mg tablet,extended release 24 hr RxNorm: 801609 Take 1 Tablet(s) Oral QD 05/05/20 21 022 Inactive isosorbide mononitrate ER 30 mg tablet,extended release 24 hr RxNorm: 138452 Take 1 Tablet(s) Oral QD 05/05/20 21 No Stop Date Active venlafaxine ER 225 mg tablet,extended release 24 hr RxNorm: 945623 Take 1 Tablet(s) Oral QD 05/05/20 21 021 Inactive hydralazine 50 mg tablet RxNorm: 669875 Take 1 Tablet(s) Oral QID 05/05/20 Inactive aspirin 81 mg tablet,delayed release RxNorm: 923476 Take 1 Tablet(s) Oral QD 03/31/20 Inactive Vitamin D2 1,250 mcg (50,000 unit) capsule RxNorm: 7903441 Take 1 Capsule(s) Oral QW once a week x 12 weeks 03/31/20 Inactive Zetia 10 mg tablet RxNorm: 686198 Take 1 Tablet(s) Oral QD 03/31/20 Inactive Vitamin D2 1,250 mcg (50,000 unit) capsule RxNorm: 5211590 Take 1 Capsule(s) Oral QW once a week 03/31/20 Inactive Zetia 10 mg tablet RxNorm: 621403 Take 1 Tablet(s) Oral QD 03/31/20 Inactive hydralazine 25 mg tablet RxNorm: 513303 Take 1 Tablet(s) Oral QID 03/31/20 021 Inactive hydralazine 25 mg tablet RxNorm: 745377 Take 1 Tablet(s) Oral QID 03/31/20 Inactive hydralazine 10 mg tablet RxNorm: 130287 Take 1 Tablet(s) Oral QID 03/03/20 021 Inactive cephalexin 500 mg tablet RxNorm: 661647 Take 1 Tablet(s) Oral QID 02/27/20 021 Inactive cephalexin 500 mg tablet RxNorm: 398702 Take 1 Tablet(s) Oral QID 02/27/20 021 Inactive lisinopril 40 mg tablet RxNorm: 172523 Take 1 Tablet(s) Oral QD 02/11/20 21 023 Inactive Eliquis 5 mg tablet RxNorm: 9027712 Take 1 Tablet(s) Oral BID 01/05/20 21 022 Inactive Eliquis 5 mg tablet RxNorm: 0286272 Take 2 Tablet(s) Oral QD 01/01/20 21 021 Inactive Lyrica 50 mg capsule RxNorm: 959036 Take 1 Capsule(s) Oral QAM every morning 12/24/19 21 021 Inactive Lyrica 100 mg capsule RxNorm: 345173 Take 1 Capsule(s) Oral QHS every night at bedtime 12/24/19 21 021 Inactive clotrimazole 1 % topical cream RxNorm: 363160 Apply to right foot and toes Topical BID 12/04/19 21 023 Inactive metoprolol succinate ER 200 mg tablet,extended release 24 hr RxNorm: 508328 Take 1 Tablet(s) Oral QD 12/04/19 21 023 Inactive ciprofloxacin 500 mg tablet RxNorm: 906435 Take 1 Tablet(s) Oral QD 11/30/19 21 021 Inactive DX ofloxacin otic drops Accu-Chek Guide test strips RxNorm: USE 1 TO CHECK GLUCOSE 4 TIMES DAILY AND NEEDED 11/15/19 21 023 Inactive Blood Glucose Test strips RxNorm: Use 1 Test Strip QID at PRN 11/05/19 21 023 Inactive E11.42 lisinopril 30 mg tablet RxNorm: 190552 Take 1 Tablet(s) Oral QD 10/30/19 021 Inactive lisinopril 20 mg tablet RxNorm: 388702 Take 1 Tablet(s) Oral QD 10/23/19 21 021 Inactive lisinopril 20 mg tablet RxNorm: 761330 Take 1 Tablet(s) Oral QD 10/23/19 21 021 Inactive lisinopril 10 mg tablet RxNorm: 132969 Take 1 Tablet(s) Oral QD 10/02/19 21 021 Inactive icosapent ethyl 1 gram capsule RxNorm: 2732950 Take 2 Capsule(s) (2 gm) Oral BID with meals 09/12/19 21 022 Inactive Okay to dispense one 2gm tab if you have that available. icosapent ethyl 1 gram capsule RxNorm: 2411116 Take 2 Capsule(s) Oral BID 09/12/19 21 021 Inactive Okay to dispense one 2gm tab if you have that available. amlodipine 10 mg tablet RxNorm: 897234 Take 1 Tablet(s) Oral QD 09/04/19 Inactive Levemir FlexTouch U-100 Insulin 100 unit/mL (3 mL) subcutaneous pen RxNorm: 382894 Inject 150 Unit(s) Subcutaneous BID 09/04/19 Inactive aspirin 81 mg tablet,delayed release RxNorm: 666224 Take 1 Tablet(s) Oral QD 09/04/19 Inactive venlafaxine ER 150 mg tablet,extended release 24 hr RxNorm: 863205 Take 1 Tablet(s) Oral QD 09/04/19 Inactive clotrimazole-betame thasone 1 %-0.05 % topical cream RxNorm: 037691 Apply to rash on red area on left abdomen/chest Topical BID 08/10/19 Inactive amlodipine 5 mg tablet RxNorm: 281888 Take 1 Tablet(s) Oral QD 07/31/19 Inactive cephalexin 500 mg tablet RxNorm: 730117 Take 1 Tablet(s) Oral BID BID - Twice Daily 07/31/19 Inactive Start 08/01/20 pantoprazole 40 mg tablet,delayed release RxNorm: 213934 Take 1 Tablet(s) Oral QAM every morning 07/08/19 Inactive senna 8.6 mg tablet RxNorm: 911815 Take 1 Tablet(s) Oral QD 07/08/19 022 Inactive Novolog Flexpen U-100 Insulin aspart 100 unit/mL (3 mL) subcutaneous RxNorm: 5252430 Administer per sliding scale Milliliter(s) Subcutaneous TID 151-200: 10 u; 201-250: 20 u; 251-300: 30 u; 301-350: 40 u; 351-400: 50 u. 07/08/19 Inactive Novolog Flexpen U-100 Insulin aspart 100 unit/mL (3 mL) subcutaneous RxNorm: 9257731 Inject 85 Unit(s) Subcutaneous TID 07/08/19 022 Inactive pravastatin 80 mg tablet RxNorm: 676665 Take 1 Tablet(s) Oral QHS every night at bedtime 07/08/19 022 Inactive clotrimazole 1 % topical cream RxNorm: 587975 Apply to bilateral groin areas Topical BID 07/08/19 21 022 Inactive carbamazepine 200 mg tablet RxNorm: 296954 Take 1 Tablet(s) Oral BID 07/08/19 022 Inactive torsemide 20 mg tablet RxNorm: 603098 Take 1 Tablet(s) Oral QD 07/08/19 21 023 Inactive clopidogrel 75 mg tablet RxNorm: 242819 Take 1 Tablet(s) Oral QD 07/08/19 021 Inactive Blood Glucose Test strips RxNorm: Use 1 Test Strip QID at PRN 07/08/19 021 Inactive E11.42 lisinopril 5 mg tablet RxNorm: 241351 Take 1 Tablet(s) Oral QD 07/08/19 021 Inactive metoprolol succinate ER 200 mg tablet,extended release 24 hr RxNorm: 396834 Take 1 Tablet(s) Oral QD 07/08/19 021 Inactive Vitamin D3 25 mcg (1,000 unit) tablet RxNorm: 123877 Take 1 Tablet(s) Oral QD 07/08/19 021 Inactive isosorbide dinitrate 30 mg tablet RxNorm: 947988 Take 1 Tablet(s) Oral QD 07/08/19 021 Inactive Levemir FlexTouch U-100 Insulin 100 unit/mL (3 mL) subcutaneous pen RxNorm: 487858 Inject 140 Unit(s) Subcutaneous BID 07/08/19 021 Inactive venlafaxine 75 mg tablet RxNorm: 940338 Take 1 Tablet(s) Oral QD 07/08/19 021 Inactive acetaminophen 500 mg tablet RxNorm: 148725 Take 1 Tablet(s) Oral TID as needed for headache 06/18/19 021 Inactive acetaminophen 500 mg tablet RxNorm: 400639 Take 1 Tablet(s) Oral TID as needed for headache 06/18/19 021 Inactive Lyrica 100 mg capsule RxNorm: 916508 Take 1 Capsule(s) Oral QHS every night at bedtime 06/11/19 21 021 Inactive Lyrica 50 mg capsule RxNorm: 658287 Take 1 Capsule(s) Oral QAM every morning 06/10/19 21 021 Inactive hydrocortisone 2.5 % topical cream RxNorm: 799090 Apply to bilateral groin creases Topical BID 05/15/20 20 021 Inactive clotrimazole 1 % topical cream RxNorm: 209204 Apply to bilateral groin areas Topical BID 05/15/20 20 021 Inactive Lyrica 50 mg capsule RxNorm: 934657 Take 1 Capsule(s) Oral QAM every morning 05/14/20 20 020 Inactive Lyrica 100 mg capsule RxNorm: 462432 Take 1 Capsule(s) Oral QHS every night [...] Inactive Nystop 100,000 unit/gram topical powder RxNorm: 031510 Apply to abd folds, under breasts and L side of groin Topical BID x 14 days, then BID PRN 04/08/20 20 021 Inactive dx: yeast dermatitis Lyrica 100 mg capsule RxNorm: 579979 Take 1 Capsule(s) Oral QHS every night at bedtime 03/13/20 20 Inactive Lyrica 50 mg capsule RxNorm: 744158 Take 1 Capsule(s) Oral QAM every morning 03/13/20 Inactive ketoconazole 2 % shampoo RxNorm: 371883 Apply Topical two times a week with showers 03/11/20 Inactive cholecalciferol (vitamin D3) 50 mcg (2,000 unit) tablet RxNorm: 177476 Take 1 Tablet(s) Oral QD 03/11/20 Inactive Zetia 10 mg tablet RxNorm: 344896 Take 1 Tablet(s) Oral QD 03/07/20 Inactive Zetia 10 mg tablet RxNorm: 755642 Take 1 Tablet(s) Oral QD 03/07/20 Inactive Lyrica 50 mg capsule RxNorm: 907716 Take 1 Capsule(s) Oral QAM every morning 02/15/20 Inactive Lyrica 100 mg capsule RxNorm: 420261 Take 1 Capsule(s) Oral QHS every night at bedtime 02/15/20 Inactive Lyrica 100 mg capsule RxNorm: 017579 Take 1 Capsule(s) Oral QHS every night at bedtime 02/15/20 Inactive Lyrica 50 mg capsule RxNorm: 275376 Take 1 Capsule(s) Oral QAM every morning 02/15/20 Inactive Medication Administered No Medication Administered data Immunizations Vaccine Codes Dose Date Status Influenza CVX: 205 05/29/2021 Covid-19 Unknown 06/25/2020 Covid-19 CVX: 208 06/04/2020 [...] Date Referral: [facility] WPtel: [address], [address] [id number] [place]erralRecords [id number]/08/2023Referral: [facility] WPtel: [address] [id number]/12/2022Referral: General CardiologyReferralCompleted 1Referral: General PsychologistReferralClosed Instructions Comment Date Lenoid is a Male being seen living at [facility]. Initial BPS visit 01/2020. PMHx including DMII, CAD w/ 5 stents, Depression, Seizure Disorder and CKD stage 3. He moved into [facility] in 12/2019 but after a hospitalization 05/2021 he moved to the [facility] to have closer nursing attention. Sister Jyotsna involved in his care cell# [phone] Guardian: Don (tapan met in person 09/01/21), now has Lexii (same group as don)Lab Schedule: * 10/06/2022
--- OUTSIDE RECORDS SUMMARY | 2021-08-14 18:00 | XMS_ITS | CCD ---
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 Restaurant Maintenance Technician Name Role Phone Tapan Shirley PA-C Primary Care Provider Unavailabl e Tapan Shirley PA-C Chronic Care Management Unavaila ble Summary Purpose DataExchange Insurance Providers Payer name Policy type / Coverage type Covered alliance party ID Effective Begin Date Effective End Date [place] [id number] Unknown Unknown [place] [id number] Unknown Unknown Family history Runs in the family Diagnosis Age At Onset No Known Diseases N/A Social History Social History Element Codes Description Effec tive Dates Living arrangements Unknown Care Home 09/03/[address]: 4328083 Non-Smoker / No History of Smoking 09/02/[address]: 708364770 No Alcohol Consum ption 09/02/2020 Allergies, Adverse Reactions, Alerts Substance Reaction Codes Entered Date Inactivated Date Status LISINOPRIL RxNorm: 5638665No Inactive DateActiveMetformin ARrBtgwuav54/28/2020No Inactive DateActive Problems Condition Codes Effective Dates Condition St atus Hyperlipidemia associated with type 2 di abetes mellitus ICD-10: E11.69 ICD-9: 250.8003/ctiveHypertension associated with diabetesICD-10: E11.59 ICD-9: 250.80032ActiveMuscular painICD-10: M79.10 ICD-9: 729.103/ctivePain of right heelICD-10: M79.671 ICD-9: 729.503/ctiveStage 2 chronic 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ICD-10: E11.22 ICD-9: 250.4003/ctiveType 2 diabetes mellitus with diabetic polyneuropathy, with long-term current use of insulinICD-10: E11.42 ICD-9: 250.6003/ctiveCoronary artery disease involving council coronary artery of council heart, angina presence unspecifiedICD-10: I25.10 ICD-9: 414.0102/ctiveDVT (deep venous thrombosis)ICD-10: I82.409 ICD-9: 453.4002/ctiveSeizure disorderICD-10: G40.909 ICD-9: 345.9002/ctiveEncounter for immunizationICD-10: Z23 ICD-9: V03.8902/ctiveCandidiasis, intertrigoICD-10: B37.2 ICD-9: 112.301/ctiveHistory of anemia due to CKDICD-10: N18.9 ICD-9: 585.901/ctiveStage 2 chronic kidney diseaseICD-10: N18.2 ICD-9: 585.201ctiveDepressionICD-10: F32.9 ICD-9: 23874ctiveLearning disabilityICD-10: F81.9 ICD-9: 315.212ctiveSkin tagICD-10: L91.8 ICD-9: 701.911/ctiveVitamin D deficiencyICD-10: E55.9 ICD-9: 268.91/ctiveCellulitisICD-10: L03.90 ICD-9: 682.910/ctiveCallus of heelICD-10: L84 ICD-9: 75633/ctiveImpacted cerumen, left earICD-10: H61.22 ICD-9: 380.408/ctiveInappropriate sexual behaviorICD-10: Z72.89 ICD-9: 312.8908/ctiveContact with and (suspected) exposure to covid-19 ICD-10: Z20.822 ICD-9: V01.7908/esolvedOther infective acute otitis externa of left ear ICD-10: H60.392 ICD-9: 380.1008/esolvedScrotal skin lesionICD-10: N50.9 ICD-9: 608.908/esolvedTinea pedisICD-10: B35.3 ICD-9: 110.408/esolvedVisit for preventive health examinationICD-10: Z00.00 ICD-9: V70.008/esolvedSecondary hypertensionICD-10: I15.9 ICD-9: 405.9906ctiveAnemia due to stage 3b chronic kidney diseaseICD- 10: N18.32 ICD-9: 285.2105esolvedGout due to renal impairmentICD-10: M10.30 ICD-9: 274.1004ctiveLong term (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 insulinICD-10: Z79.4 09/03/2020ctiveLower extremity edemaICD-10: R60.0 ICD-9: 782.304ctiveChronic kidney disease, stage 3 unspecifiedICD-10: N18.3004esolvedDandruff in adultICD-10: L21.0 ICD-9: 690.1802/ctiveContact with and (suspected) exposure to other viral communicable diseasesICD-10: Z20.828 ICD-9: V01.7902esolvedHyperhidrosis of palmsICD-10: L74.512 ICD-9: 705.6587VrofjiVpcmfcsyRjvgstn99/28/2020ActiveDiabetes mellitus Type 7Drrcavk40/28/2020ActiveAnemia in chronic kidney diseaseICD-10: D63.1 02/12/2020ResolvedHyperlipidemia, unspecifiedICD-10: E78.509Resolved Medications Medication Codes Instructions Start Date Stop Date Status Fill Instructions Lyrica 100 mg capsule RxNorm: 690564 Take 1 Capsule(s) Oral QHS every night at bedtime Take 1 capsule by mouth once daily at bedtime 08/16/19 22 022 Inactive Lyrica 50 mg capsule RxNorm: 549026 Take 1 Capsule(s) Oral QAM every morning Take 1 capsule by mouth once daily 08/16/19 22 022 Inactive Levemir FlexTouch U-100 Insulin 100 unit/mL (3 mL) subcutaneous pen RxNorm: 594901 Inject 86 Unit(s) Subcutaneous BID 08/05/19 22 022 Inactive d/c 83units BID Lyrica 100 mg capsule RxNorm: 557637 Take 1 Capsule(s) Oral QHS every night at bedtime Take 1 capsule by mouth once daily at bedtime 07/14/19 22 022 Inactive Lyrica 50 mg capsule RxNorm: 518784 Take 1 Capsule(s) Oral QAM every morning Take 1 capsule by mouth once daily 07/14/19 22 022 Inactive Levemir FlexTouch U-100 Insulin 100 unit/mL (3 mL) subcutaneous pen RxNorm: 436079 Inject 83 Unit(s) Subcutaneous BID 07/08/19 22 022 Inactive d/c 80units BID Accu-Chek Guide Glucose Meter RxNorm: Use 1 Miscellaneous UD as directed Use glucose meter to monitor blood glucose 4 times daily and as needed. Dx:E11.42 06/05/19 No Stop Date Active ok to substitute with any covered alternative meter Accu-Chek Guide Glucose Meter RxNorm: Use 1 Miscellaneous UD as directed Use glucose meter to monitor blood glucose 4 times daily and as needed. Dx:E11.42 06/05/19 22 022 Inactive ok to substitute with any covered alternative meter Novofine Autocover 30 gauge x 1/3 needle RxNorm: Use 1 Miscellaneous UD as directed Use 1 needle as directed to administer insulin. Dx:E11.42. 06/05/19 22 022 Inactive ok to substitute with any covered alternative pen needle Novofine Autocover 30 gauge x 1/3 needle RxNorm: Use 1 Miscellaneous UD as directed Use 1 needle as directed to administer insulin 5 times a day Dx:E11.42. 06/05/19 22 022 Inactive ok to substitute with any covered alternative pen needle Accu-Chek Guide test strips RxNorm: Use 1 Test Strip QID Use 1 test strip to monitor blood glucose 4 times daily and as needed. Dx:E11.42. 06/05/19 22 022 Inactive ok to substitute with any covered alternative test strip Accu-Chek Guide test strips RxNorm: Use 1 Test Strip QID Use 1 test strip to monitor blood glucose 4 times daily and as needed. Dx:E11.42. 06/05/19 22 022 Inactive ok to substitute with any covered alternative test strip hydralazine 50 mg tablet RxNorm: 454383 Take 1 Tablet(s) Oral QID 05/05/20 21 Inactive isosorbide mononitrate ER 30 mg tablet,extended release 24 hr RxNorm: 370753 Take 1 Tablet(s) Oral QD 05/05/20 No Stop Date Active venlafaxine ER 225 mg tablet,extended release 24 hr RxNorm: 026866 Take 1 Tablet(s) Oral QD 05/05/20 Inactive venlafaxine ER 225 mg tablet,extended release 24 hr RxNorm: 847261 Take 1 Tablet(s) Oral QD 05/05/20 Inactive hydralazine 50 mg tablet RxNorm: 088851 Take 1 Tablet(s) Oral QID 05/05/20 21 Inactive aspirin 81 mg tablet,delayed release RxNorm: 723626 Take 1 Tablet(s) Oral QD 03/31/20 Inactive Vitamin D2 1,250 mcg (50,000 unit) capsule RxNorm: 7759592 Take 1 Capsule(s) Oral QW once a week x 12 weeks 03/31/20 Inactive Zetia 10 mg tablet RxNorm: 362762 Take 1 Tablet(s) Oral QD 03/31/20 Inactive Vitamin D2 1,250 mcg (50,000 unit) capsule RxNorm: 9323855 Take 1 Capsule(s) Oral QW once a week 03/31/20 Inactive Zetia 10 mg tablet RxNorm: 971541 Take 1 Tablet(s) Oral QD 03/31/20 Inactive hydralazine 25 mg tablet RxNorm: 801323 Take 1 Tablet(s) Oral QID 03/31/20 021 Inactive hydralazine 25 mg tablet RxNorm: 704369 Take 1 Tablet(s) Oral QID 03/31/20 021 Inactive hydralazine 10 mg tablet RxNorm: 269123 Take 1 Tablet(s) Oral QID 03/03/20 021 Inactive cephalexin 500 mg tablet RxNorm: 395743 Take 1 Tablet(s) Oral QID 02/27/20 021 Inactive cephalexin 500 mg tablet RxNorm: 762397 Take 1 Tablet(s) Oral QID 02/27/20 021 Inactive lisinopril 40 mg tablet RxNorm: 331646 Take 1 Tablet(s) Oral QD 02/11/20 023 Inactive Eliquis 5 mg tablet RxNorm: 5719243 Take 1 Tablet(s) Oral BID 01/05/20 022 Inactive Eliquis 5 mg tablet RxNorm: 5595279 Take 2 Tablet(s) Oral QD 01/01/20 021 Inactive Lyrica 50 mg capsule RxNorm: 523693 Take 1 Capsule(s) Oral QAM every morning 12/24/19 021 Inactive Lyrica 100 mg capsule RxNorm: 838231 Take 1 Capsule(s) Oral QHS every night at bedtime 12/24/19 021 Inactive clotrimazole 1 % topical cream RxNorm: 439694 Apply to right foot and toes Topical BID 12/04/19 21 023 Inactive metoprolol succinate ER 200 mg tablet,extended release 24 hr RxNorm: 742620 Take 1 Tablet(s) Oral QD 12/04/19 023 Inactive ciprofloxacin 500 mg tablet RxNorm: 879090 Take 1 Tablet(s) Oral QD 11/30/19 21 021 Inactive DX ofloxacin otic drops Accu-Chek Guide test strips RxNorm: USE 1 TO CHECK GLUCOSE 4 TIMES DAILY AND NEEDED 11/15/19 21 023 Inactive Blood Glucose Test strips RxNorm: Use 1 Test Strip QID at PRN 11/05/19 21 023 Inactive E11.42 lisinopril 30 mg tablet RxNorm: 140685 Take 1 Tablet(s) Oral QD 10/30/19 021 Inactive lisinopril 20 mg tablet RxNorm: 320284 Take 1 Tablet(s) Oral QD 10/23/19 21 021 Inactive lisinopril 20 mg tablet RxNorm: 583112 Take 1 Tablet(s) Oral QD 10/23/19 21 021 Inactive lisinopril 10 mg tablet RxNorm: 556941 Take 1 Tablet(s) Oral QD 10/02/19 021 Inactive icosapent ethyl 1 gram capsule RxNorm: 6460616 Take 2 Capsule(s) (2 gm) Oral BID with meals 09/12/19 022 Inactive Okay to dispense one 2gm tab if you have that available. icosapent ethyl 1 gram capsule RxNorm: 1918477 Take 2 Capsule(s) Oral BID 09/12/19 021 Inactive Okay to dispense one 2gm tab if you have that available. amlodipine 10 mg tablet RxNorm: 464164 Take 1 Tablet(s) Oral QD 09/04/19 022 Inactive aspirin 81 mg tablet,delayed release RxNorm: 038719 Take 1 Tablet(s) Oral QD 09/04/19 021 Inactive Levemir FlexTouch U-100 Insulin 100 unit/mL (3 mL) subcutaneous pen RxNorm: 423262 Inject 150 Unit(s) Subcutaneous BID 09/04/19 21 022 Inactive venlafaxine ER 150 mg tablet,extended release 24 hr RxNorm: 220478 Take 1 Tablet(s) Oral QD 09/04/19 21 021 Inactive clotrimazole-betame thasone 1 %-0.05 % topical cream RxNorm: 284522 Apply to rash on red area on left abdomen/chest Topical BID 08/10/19 21 021 Inactive amlodipine 5 mg tablet RxNorm: 876611 Take 1 Tablet(s) Oral QD 07/31/19 21 021 Inactive cephalexin 500 mg tablet RxNorm: 891730 Take 1 Tablet(s) Oral BID BID - Twice Daily 07/31/19 021 Inactive Start 08/01/20 pantoprazole 40 mg tablet,delayed release RxNorm: 183447 Take 1 Tablet(s) Oral QAM every morning 07/08/19 022 Inactive senna 8.6 mg tablet RxNorm: 375742 Take 1 Tablet(s) Oral QD 07/08/19 022 Inactive pravastatin 80 mg tablet RxNorm: 006187 Take 1 Tablet(s) Oral QHS every night at bedtime 07/08/19 Inactive clotrimazole 1 % topical cream RxNorm: 539353 Apply to bilateral groin areas Topical BID 07/08/19 022 Inactive carbamazepine 200 mg tablet RxNorm: 582760 Take 1 Tablet(s) Oral BID 07/08/19 022 Inactive torsemide 20 mg tablet RxNorm: 967138 Take 1 Tablet(s) Oral QD 07/08/19 023 Inactive clopidogrel 75 mg tablet RxNorm: 775238 Take 1 Tablet(s) Oral QD 07/08/19 021 Inactive Blood Glucose Test strips RxNorm: Use 1 Test Strip QID at PRN 07/08/19 Inactive E11.42 Novolog Flexpen U-100 Insulin aspart 100 unit/mL (3 mL) subcutaneous RxNorm: 5007114 Administer per sliding scale Milliliter(s) Subcutaneous TID 151-200: 10 u; 201-250: 20 u; 251-300: 30 u; 301-350: 40 u; 351-400: 50 u. 07/08/19 022 Inactive lisinopril 5 mg tablet RxNorm: 529100 Take 1 Tablet(s) Oral QD 07/08/19 021 Inactive Novolog Flexpen U-100 Insulin aspart 100 unit/mL (3 mL) subcutaneous RxNorm: 3555173 Inject 85 Unit(s) Subcutaneous TID 07/08/19 022 Inactive metoprolol succinate ER 200 mg tablet,extended release 24 hr RxNorm: 633142 Take 1 Tablet(s) Oral QD 07/08/19 Inactive Vitamin D3 25 mcg (1,000 unit) tablet RxNorm: 117142 Take 1 Tablet(s) Oral QD 07/08/19 Inactive isosorbide dinitrate 30 mg tablet RxNorm: 510417 Take 1 Tablet(s) Oral QD 07/08/19 Inactive Levemir FlexTouch U-100 Insulin 100 unit/mL (3 mL) subcutaneous pen RxNorm: 402594 Inject 140 Unit(s) Subcutaneous BID 07/08/19 Inactive venlafaxine 75 mg tablet RxNorm: 679355 Take 1 Tablet(s) Oral QD 07/08/19 Inactive acetaminophen 500 mg tablet RxNorm: 417155 Take 1 Tablet(s) Oral TID as needed for headache 06/18/19 Inactive acetaminophen 500 mg tablet RxNorm: 773253 Take 1 Tablet(s) Oral TID as needed for headache 06/18/19 Inactive Lyrica 100 mg capsule RxNorm: 544157 Take 1 Capsule(s) Oral QHS every night at bedtime 06/11/19 Inactive Lyrica 50 mg capsule RxNorm: 707050 Take 1 Capsule(s) Oral QAM every morning 06/10/19 21 Inactive hydrocortisone 2.5 % topical cream RxNorm: 573079 Apply to bilateral groin creases Topical BID 05/15/20 20 021 Inactive clotrimazole 1 % topical cream RxNorm: 053345 Apply to bilateral groin areas Topical BID 05/15/20 20 Inactive Lyrica 50 mg capsule RxNorm: 043976 Take 1 Capsule(s) Oral QAM every morning 05/14/20 20 Inactive Lyrica 100 mg capsule RxNorm: 655065 Take 1 Capsule(s) Oral QHS every night [...] Inactive Nystop 100,000 unit/gram topical powder RxNorm: 226243 Apply to abd folds, under breasts and L side of groin Topical BID x 14 days, then BID PRN 04/08/20 20 021 Inactive dx: yeast dermatitis Lyrica 100 mg capsule RxNorm: 695765 Take 1 Capsule(s) Oral QHS every night at bedtime 03/13/20 20 Inactive Lyrica 50 mg capsule RxNorm: 744524 Take 1 Capsule(s) Oral QAM every morning 03/13/20 20 Inactive ketoconazole 2 % shampoo RxNorm: 324119 Apply Topical two times a week with showers 03/11/20 20 Inactive cholecalciferol (vitamin D3) 50 mcg (2,000 unit) tablet RxNorm: 272854 Take 1 Tablet(s) Oral QD 03/11/20 20 021 Inactive Zetia 10 mg tablet RxNorm: 673500 Take 1 Tablet(s) Oral QD 03/07/20 20 021 Inactive Zetia 10 mg tablet RxNorm: 556801 Take 1 Tablet(s) Oral QD 03/07/20 20 Inactive Lyrica 50 mg capsule RxNorm: 938339 Take 1 Capsule(s) Oral QAM every morning 02/15/20 20 Inactive Lyrica 100 mg capsule RxNorm: 764005 Take 1 Capsule(s) Oral QHS every night at bedtime 02/15/20 20 Inactive Lyrica 100 mg capsule RxNorm: 463064 Take 1 Capsule(s) Oral QHS every night at bedtime 02/15/20 20 Inactive Lyrica 50 mg capsule RxNorm: 483819 Take 1 Capsule(s) Oral QAM every morning 02/15/20 Inactive venlafaxine ER 75 mg capsule,extended release 24 hr RxNorm: 333063 Take 3 Capsule(s) Oral QD 06/12/2021 Activepolyethylene glycol 3350 17 gram/dose oral powderRxNorm: 643375Cceo 17=1 capful Gram(s) Oral BID as needed mix with 4-8oz of eofjlh6206/12/2021ctive Levemir FlexTouch U-100 Insulin 100 unit/mL (3 mL) subcutaneous penRxNorm: 934213Zbdtaj 80 Unit(s) Subcutaneous BID/Inactiveloperamide 2 mg capsuleRxNorm: 722449Ccwb 1 Capsule(s) Oral QID as xabuzl5806/12/2021ctive Novolog Flexpen U-100 Insulin aspart 100 unit/mL (3 mL) subcutaneousRxNorm: 3758860Rodazz 30 Unit(s) Subcutaneous TID with meals/Inactive Medication Administered No Medication Administered data Immunizations Vaccine Codes Dose Date Status Covid-19 (Adult) CVX: 207 0.25 06/18/2021 Complete Influenza CVX: 205 05/29/2021 Covid-19 Unknown 06/25/2020 [...] Codes Status Date Referral: [facility] WPtel: [phone], [address] [id number] USReferralRecords Jkzmlupi66/08/2023Referral: [facility] WPtel: [phone] [id number] LHQssjhigcSkcisdbvw22/12/2022Referral: General CardiologyReferralCompleted 1Referral: General PsychologistReferralClosed Instructions Comment Date Leonid is a Male being seen living at [facility]. Initial [facility] visit 01/2020. PMHx including DMII, CAD w/ 5 stents, Depression, Seizure Disorder and CKD stage 3. He moved into [facility] in 12/2019 but after a hospitalization 05/2021 he moved [facility] to have closer nursing attention. Sister Jyotsna involved in his care cell# [phone] Guardian: Don (tapan met in person 09/01/21), now has Lexii (same group as don)Lab Schedule: * 10/06/2022
--- OUTSIDE RECORDS SUMMARY | 2021-08-14 18:00 | XMS_ITS | CCD ---
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 Lamp Developer Name Role Phone Tapan Shirley PA-C Primary Care Provider Unavailabl e Tapan Shirley PA-C Chronic Care Management Unavaila ble Summary Purpose DataExchange Insurance Providers Payer name Policy type / Coverage type Covered libertarian ID Effective Begin Date Effective End Date Medicare [place] Medicare Part B [id number] Unknown Unknown Medicaid [place] B [id number] Unknown Unknown Family history Runs in the family Diagnosis Age At Onset No Known Diseases N/A Social History Social History Element Codes Description Effec tive Dates Living arrangements Unknown Longterm 09/03/[address]: 9301217 Non-Smoker / No History of Smoking 09/02/[address]: 046104699 No Alcohol Consum ption 09/02/2020 Allergies, Adverse Reactions, Alerts Substance Reaction Codes Entered Date Inactivated Date Status LISINOPRIL RxNorm: 7914268No Inactive DateActiveMetformin AJtCevceix85/28/2020No Inactive DateActive Problems Condition Codes Effective Dates [...] insulinICD-10: E11.42 ICD-9: 250.6003/ctiveCoronary artery disease involving diomede coronary artery of diomede heart, angina presence unspecifiedICD-10: I25.10 ICD-9: 414.0102/ctiveDVT (deep venous thrombosis)ICD-10: I82.409 ICD-9: 453.4002/ctiveSeizure disorderICD-10: G40.909 ICD-9: 345.9002/ctiveEncounter for immunizationICD-10: Z23 ICD-9: V03.8902/ctiveCandidiasis, intertrigoICD-10: B37.2 ICD-9: 112.301/ctiveHistory of anemia due to CKDICD-10: N18.9 ICD-9: 585.901/ctiveStage 2 chronic kidney diseaseICD-10: N18.2 ICD-9: 585.201ctiveDepressionICD-10: F32.9 ICD-9: 71020ctiveLearning disabilityICD-10: F81.9 ICD-9: 315.212ctiveSkin tagICD-10: L91.8 ICD-9: 701.911/ctiveVitamin D deficiencyICD-10: E55.9 ICD-9: 268.91/ctiveCellulitisICD-10: L03.90 ICD-9: 682.910/ctiveCallus of heelICD-10: L84 ICD-9: 83443/ctiveImpacted cerumen, left earICD-10: H61.22 ICD-9: 380.408/ctiveInappropriate sexual [...] Z20.828 ICD-9: V01.7902esolvedHyperhidrosis of palmsICD-10: L74.512 ICD-9: 705.9363IdbvhjFbisugfyDgsdutv90/28/2020ActiveDiabetes mellitus Type 8Rxsskhp19/28/2020ActiveAnemia in chronic kidney diseaseICD-10: D63.1 02/12/2020ResolvedHyperlipidemia, unspecifiedICD-10: E78.509Resolved Medications Medication Codes Instructions Start Date Stop Date Status Fill Instructions Lyrica 100 mg capsule RxNorm: 488081 Take 1 Capsule(s) Oral QHS every night at bedtime Take 1 capsule by mouth once daily at bedtime 08/16/19 22 022 Inactive Lyrica 50 mg capsule RxNorm: 240972 Take 1 Capsule(s) Oral QAM every morning Take 1 capsule by mouth once daily 08/16/19 22 022 Inactive Levemir FlexTouch U-100 Insulin 100 unit/mL (3 mL) subcutaneous pen RxNorm: 871004 Inject 86 Unit(s) Subcutaneous BID 08/05/19 22 022 Inactive d/c 83units BID Lyrica 100 mg capsule RxNorm: 092452 Take 1 Capsule(s) Oral QHS every night at bedtime Take 1 capsule by mouth once daily at bedtime 07/14/19 22 022 Inactive Lyrica 50 mg capsule RxNorm: 643875 Take 1 Capsule(s) Oral QAM every morning Take 1 capsule by mouth once daily 07/14/19 22 022 Inactive Levemir FlexTouch U-100 Insulin 100 unit/mL (3 mL) subcutaneous pen RxNorm: 152406 Inject 83 Unit(s) Subcutaneous BID 07/08/19 22 [...] test strip hydralazine 50 mg tablet RxNorm: 067368 Take 1 Tablet(s) Oral QID 05/05/20 21 Inactive isosorbide mononitrate ER 30 mg tablet,extended release 24 hr RxNorm: 572756 Take 1 Tablet(s) Oral QD 05/05/20 No Stop Date Active venlafaxine ER 225 mg tablet,extended release 24 hr RxNorm: 498996 Take 1 Tablet(s) Oral QD 05/05/20 Inactive venlafaxine ER 225 mg tablet,extended release 24 hr RxNorm: 202746 Take 1 Tablet(s) Oral QD 05/05/20 Inactive hydralazine 50 mg tablet RxNorm: 129752 Take 1 Tablet(s) Oral QID 05/05/20 21 Inactive aspirin 81 mg tablet,delayed release RxNorm: 217921 Take 1 Tablet(s) Oral QD 03/31/20 Inactive Vitamin D2 1,250 mcg (50,000 unit) capsule RxNorm: 3012594 Take 1 Capsule(s) Oral QW once a week x 12 weeks 03/31/20 Inactive Zetia 10 mg tablet RxNorm: 061773 Take 1 Tablet(s) Oral QD 03/31/20 Inactive Vitamin D2 1,250 mcg (50,000 unit) capsule RxNorm: 4263989 Take 1 Capsule(s) Oral QW once a week 03/31/20 Inactive Zetia 10 mg tablet RxNorm: 764984 Take 1 Tablet(s) Oral QD 03/31/20 Inactive hydralazine 25 mg tablet RxNorm: 268691 Take 1 Tablet(s) Oral QID 03/31/20 021 Inactive hydralazine 25 mg tablet RxNorm: 036335 Take 1 Tablet(s) Oral QID 03/31/20 021 Inactive hydralazine 10 mg tablet RxNorm: 520617 Take 1 Tablet(s) Oral QID 03/03/20 021 Inactive cephalexin 500 mg tablet RxNorm: 861856 Take 1 Tablet(s) Oral QID 02/27/20 021 Inactive cephalexin 500 mg tablet RxNorm: 840337 Take 1 Tablet(s) Oral QID 02/27/20 021 Inactive lisinopril 40 mg tablet RxNorm: 219551 Take 1 Tablet(s) Oral QD 02/11/20 023 Inactive Eliquis 5 mg tablet RxNorm: 5387890 Take 1 Tablet(s) Oral BID 01/05/20 022 Inactive Eliquis 5 mg tablet RxNorm: 5981769 Take 2 Tablet(s) Oral QD 01/01/20 021 Inactive Lyrica 50 mg capsule RxNorm: 147899 Take 1 Capsule(s) Oral QAM every morning 12/24/19 021 Inactive Lyrica 100 mg capsule RxNorm: 179453 Take 1 Capsule(s) Oral QHS every night at bedtime 12/24/19 021 Inactive clotrimazole 1 % topical cream RxNorm: 557422 Apply to right foot and toes Topical BID 12/04/19 21 023 Inactive metoprolol succinate ER 200 mg tablet,extended release 24 hr RxNorm: 994811 Take 1 Tablet(s) Oral QD 12/04/19 023 Inactive ciprofloxacin 500 mg tablet RxNorm: 523262 Take 1 Tablet(s) Oral QD 11/30/19 21 021 Inactive DX ofloxacin otic drops Accu-Chek Guide test strips RxNorm: USE 1 TO CHECK GLUCOSE 4 TIMES DAILY AND NEEDED 11/15/19 21 023 Inactive Blood Glucose Test strips RxNorm: Use 1 Test Strip QID at PRN 11/05/19 21 023 Inactive E11.42 lisinopril 30 mg tablet RxNorm: 351197 Take 1 Tablet(s) Oral QD 10/30/19 021 Inactive lisinopril 20 mg tablet RxNorm: 086626 Take 1 Tablet(s) Oral QD 10/23/19 21 021 Inactive lisinopril 20 mg tablet RxNorm: 561416 Take 1 Tablet(s) Oral QD 10/23/19 21 021 Inactive lisinopril 10 mg tablet RxNorm: 470645 Take 1 Tablet(s) Oral QD 10/02/19 021 Inactive icosapent ethyl 1 gram capsule RxNorm: 6591561 Take 2 Capsule(s) (2 gm) Oral BID with meals 09/12/19 022 Inactive Okay to dispense one 2gm tab if you have that available. icosapent ethyl 1 gram capsule RxNorm: 1706175 Take 2 Capsule(s) Oral BID 09/12/19 021 Inactive Okay to dispense one 2gm tab if you have that available. amlodipine 10 mg tablet RxNorm: 282902 Take 1 Tablet(s) Oral QD 09/04/19 022 Inactive aspirin 81 mg tablet,delayed release RxNorm: 082489 Take 1 Tablet(s) Oral QD 09/04/19 021 Inactive Levemir FlexTouch U-100 Insulin 100 unit/mL (3 mL) subcutaneous pen RxNorm: 059085 Inject 150 Unit(s) Subcutaneous BID 09/04/19 21 022 Inactive venlafaxine ER 150 mg tablet,extended release 24 hr RxNorm: 247332 Take 1 Tablet(s) Oral QD 09/04/19 21 021 Inactive clotrimazole-betame thasone 1 %-0.05 % topical cream RxNorm: 832811 Apply to rash on red area on left abdomen/chest Topical BID 08/10/19 21 021 Inactive amlodipine 5 mg tablet RxNorm: 159516 Take 1 Tablet(s) Oral QD 07/31/19 21 021 Inactive cephalexin 500 mg tablet RxNorm: 042549 Take 1 Tablet(s) Oral BID BID - Twice Daily 07/31/19 021 Inactive Start 08/01/20 pantoprazole 40 mg tablet,delayed release RxNorm: 470998 Take 1 Tablet(s) Oral QAM every morning 07/08/19 022 Inactive senna 8.6 mg tablet RxNorm: 846724 Take 1 Tablet(s) Oral QD 07/08/19 022 Inactive pravastatin 80 mg tablet RxNorm: 283944 Take 1 Tablet(s) Oral QHS every night at bedtime 07/08/19 Inactive clotrimazole 1 % topical cream RxNorm: 718832 Apply to bilateral groin areas Topical BID 07/08/19 022 Inactive carbamazepine 200 mg tablet RxNorm: 824280 Take 1 Tablet(s) Oral BID 07/08/19 022 Inactive torsemide 20 mg tablet RxNorm: 700486 Take 1 Tablet(s) Oral QD 07/08/19 023 Inactive clopidogrel 75 mg tablet RxNorm: 701278 Take 1 Tablet(s) Oral QD 07/08/19 021 Inactive Blood Glucose Test strips RxNorm: Use 1 Test Strip QID at PRN 07/08/19 Inactive E11.42 Novolog Flexpen U-100 Insulin aspart 100 unit/mL (3 mL) subcutaneous RxNorm: 9974712 Administer per sliding scale Milliliter(s) Subcutaneous TID 151-200: 10 u; 201-250: 20 u; 251-300: 30 u; 301-350: 40 u; 351-400: 50 u. 07/08/19 022 Inactive lisinopril 5 mg tablet RxNorm: 453413 Take 1 Tablet(s) Oral QD 07/08/19 021 Inactive Novolog Flexpen U-100 Insulin aspart 100 unit/mL (3 mL) subcutaneous RxNorm: 1035484 Inject 85 Unit(s) Subcutaneous TID 07/08/19 022 Inactive metoprolol succinate ER 200 mg tablet,extended release 24 hr RxNorm: 076480 Take 1 Tablet(s) Oral QD 07/08/19 Inactive Vitamin D3 25 mcg (1,000 unit) tablet RxNorm: 994348 Take 1 Tablet(s) Oral QD 07/08/19 Inactive isosorbide dinitrate 30 mg tablet RxNorm: 880092 Take 1 Tablet(s) Oral QD 07/08/19 Inactive Levemir FlexTouch U-100 Insulin 100 unit/mL (3 mL) subcutaneous pen RxNorm: 290766 Inject 140 Unit(s) Subcutaneous BID 07/08/19 Inactive venlafaxine 75 mg tablet RxNorm: 735080 Take 1 Tablet(s) Oral QD 07/08/19 Inactive acetaminophen 500 mg tablet RxNorm: 155703 Take 1 Tablet(s) Oral TID as needed for headache 06/18/19 Inactive acetaminophen 500 mg tablet RxNorm: 015580 Take 1 Tablet(s) Oral TID as needed for headache 06/18/19 Inactive Lyrica 100 mg capsule RxNorm: 153430 Take 1 Capsule(s) Oral QHS every night at bedtime 06/11/19 Inactive Lyrica 50 mg capsule RxNorm: 756554 Take 1 Capsule(s) Oral QAM every morning 06/10/19 21 Inactive hydrocortisone 2.5 % topical cream RxNorm: 630680 Apply to bilateral groin creases Topical BID 05/15/20 20 021 Inactive clotrimazole 1 % topical cream RxNorm: 432510 Apply to bilateral groin areas Topical BID 05/15/20 20 Inactive Lyrica 50 mg capsule RxNorm: 276406 Take 1 Capsule(s) Oral QAM every morning 05/14/20 20 Inactive Lyrica 100 mg capsule RxNorm: 305489 Take 1 Capsule(s) Oral QHS every night [...] Inactive Nystop 100,000 unit/gram topical powder RxNorm: 742550 Apply to abd folds, under breasts and L side of groin Topical BID x 14 days, then BID PRN 04/08/20 20 021 Inactive dx: yeast dermatitis Lyrica 100 mg capsule RxNorm: 371204 Take 1 Capsule(s) Oral QHS every night at bedtime 03/13/20 20 Inactive Lyrica 50 mg capsule RxNorm: 148022 Take 1 Capsule(s) Oral QAM every morning 03/13/20 20 Inactive ketoconazole 2 % shampoo RxNorm: 587631 Apply Topical two times a week with showers 03/11/20 20 Inactive cholecalciferol (vitamin D3) 50 mcg (2,000 unit) tablet RxNorm: 025345 Take 1 Tablet(s) Oral QD 03/11/20 20 021 Inactive Zetia 10 mg tablet RxNorm: 801537 Take 1 Tablet(s) Oral QD 03/07/20 20 021 Inactive Zetia 10 mg tablet RxNorm: 529912 Take 1 Tablet(s) Oral QD 03/07/20 20 Inactive Lyrica 50 mg capsule RxNorm: 958045 Take 1 Capsule(s) Oral QAM every morning 02/15/20 20 Inactive Lyrica 100 mg capsule RxNorm: 628876 Take 1 Capsule(s) Oral QHS every night at bedtime 02/15/20 20 Inactive Lyrica 100 mg capsule RxNorm: 944747 Take 1 Capsule(s) Oral QHS every night at bedtime 02/15/20 20 Inactive Lyrica 50 mg capsule RxNorm: 854949 Take 1 Capsule(s) Oral QAM every morning 02/15/20 Inactive venlafaxine ER 75 mg capsule,extended release 24 hr RxNorm: 325752 Take 3 Capsule(s) Oral QD 06/12/2021 Activepolyethylene glycol 3350 17 gram/dose oral powderRxNorm: 384689Lmwa 17=1 capful Gram(s) Oral BID as needed mix with 4-8oz of zmdqzu2406/12/2021ctive Levemir FlexTouch U-100 Insulin 100 unit/mL (3 mL) subcutaneous penRxNorm: 969026Epotvk 80 Unit(s) Subcutaneous BID/Inactiveloperamide 2 mg capsuleRxNorm: 564757Xggp 1 Capsule(s) Oral QID as ssccox9306/12/2021ctive Novolog Flexpen U-100 Insulin aspart 100 unit/mL (3 mL) subcutaneousRxNorm: 5360046Mxskzb 30 Unit(s) Subcutaneous TID with meals/Inactive Medication [...] Date Referral: [facility] WPtel: [phone], [address] [id number] USReferralRecords Rfoqqqnl99/08/2023Referral: [facility] WPtel: [address] [id number]/12/2022Referral: General CardiologyReferralCompleted 1Referral: General PsychologistReferralClosed Instructions Comment Date Leonid is a Male being seen living at [facility]. Initial [facility] visit 01/2020. PMHx including DMII, CAD w/ 5 stents, Depression, Seizure Disorder and CKD stage 3. He moved into [facility] in 12/2019 but after a hospitalization 05/2021 he moved to the [facility] to have closer nursing attention. Sister Jyotsna involved in his care cell# [phone] Guardian: Don (tapan met in person 09/01/21), now has Lexii (same group as don)Lab Schedule: * 10/06/2022
--- OUTSIDE RECORDS SUMMARY | 2022-02-19 18:00 | XMS_ITS | CCD ---
Author Name Sandra Clark CNP Address [address] [place] [address] Phone Organization [facility] Phone Care Team Providers Care Binder Fixer Name Role Phone Tapan Shirley PA-C Primary Care Provider Unavailabl e Tapan Shirley PA-C Chronic Care Management Unavaila ble Summary Purpose DataExchange Insurance Providers Payer name Policy type / Coverage type Covered democrat ID Effective Begin Date Effective End Date [place] Part B [id number] Unknown Unknown [place] [id number] Unknown Unknown Family history Sister Brittany Suggs Diagnosis Age At Onset No Family Disease Entered N/A Runs in the family Diagnosis Age At Onset No Known Diseases N/A Sister Blanka Mcduffie Diagnosis Age At Onset No Family Disease Entered N/A Social History Social History Element Codes Description Effec tive Dates Marital status Unknown Single 10/07/2021 Living arrangements Unknown Senior Care 09/03/[address]: 0986910 Non-Smoker / No History of Smoking 09/02/[address]: 446108610 No Alcohol Consum ption 09/02/2020 Allergies, Adverse Reactions, Alerts Substance Reaction Codes Entered Date Inactivated Date Status LISINOPRIL RxNorm: 7731798No Inactive DateActiveMetformin HSiSasvkqw15/28/2020No Inactive DateActive Problems Condition Codes Effective Dates Condition St atus BMI 60.0-69.9, adult ICD-10: Z68.44 ICD-9: V85.4410/2ActiveInappropriate sexual behaviorICD-10: Z72.89 ICD-9: 312.8910/2ActiveMajor depression, recurrentICD-10: F33.9 ICD-9: 296.3010/2ActiveSeizure disorderICD-10: G40.909 ICD-9: 345.9010/ctiveType 2 diabetes mellitus with diabetic polyneuropathy, with long-term current use of insulinICD-10: E11.42 ICD-9: 250.6010/ctiveHx of deep venous thrombosisICD-10: Z86.718 ICD-9: V12.5109/ctiveHypercoagulable stateICD-10: D68.59 ICD-9: 289.8109/ctiveHypertensive heart disease without heart failure ICD-10: I11.9 ICD-9: 402.9009/ctiveOnychogryposisICD-10: L60.2 ICD-9: 703.809/ctiveParaparesis of both lower limbsICD-10: G82.20 ICD-9: 344.109/ctivePVD (peripheral vascular disease)ICD-10: I73.9 ICD-9: 443.909/ctiveRecurrent major depressive disorder, in partial remissionICD-10: F33.41 ICD-9: 296.3509/ctiveDepressionICD-10: F32.9 ICD-9: 12792/esolvedDVT (deep venous thrombosis)ICD-10: I82.409 ICD-9: 453.4009/esolvedEncounter for immunizationICD-10: Z23 ICD-9: V03.8909/2ResolvedLong term (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 insulinICD-10: Z79.4 2ResolvedMuscular painICD-10: M79.10 ICD-9: 729.109esolvedPain of right heelICD-10: M79.671 ICD-9: 729.509esolvedCoronary artery disease involving [place] coronary artery of [place] heart, angina presence unspecifiedICD-10: I25.10 ICD-9: 414.0108/ctiveDandruff in adultICD-10: L21.0 ICD-9: 690.1808/ctiveHyperlipidemia associated with type 2 diabetes mellitusICD-10: E11.69 ICD-9: 250.8008/2ActiveStage 2 chronic 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ICD-10: E11.22 ICD-9: 250.4008/2ActiveHypertension associated with diabetesICD-10: E11.59 ICD-9: 250.8008/2ResolvedHistory of anemia due to CKDICD-10: N18.9 ICD-9: 585.907/ctiveSecondary hypertensionICD-10: I15.9 ICD-9: 405.9907/ctiveStage 2 chronic kidney diseaseICD-10: N18.2 ICD-9: 585.207/ctiveCandidiasis, intertrigoICD-10: B37.2 ICD-9: 112.306/ctiveGout due to renal impairmentICD-10: M10.30 ICD-9: 274.1006/ctivePreventative health careICD-10: Z00.00 ICD-9: V70.006/ctiveLower extremity edemaICD-10: R60.0 ICD-9: 782.305/ctiveAmputated toe of right footICD-10: S98.131A ICD-9: 895.004/ctiveLearning disabilityICD-10: F81.9 ICD-9: 315.212/ctiveSkin tagICD-10: L91.8 ICD-9: 701.911/ctiveVitamin D deficiencyICD-10: E55.9 ICD-9: 268.911/ctiveCellulitisICD-10: L03.90 ICD-9: 682.910/ctiveCallus of heelICD-10: L84 ICD-9: 93074/ctiveImpacted cerumen, left earICD-10: H61.22 ICD-9: 380.408/ctiveContact with and (suspected) exposure to covid-19 ICD-10: Z20.822 ICD-9: V01.7908/1ResolvedOther infective acute otitis externa of left ear ICD-10: H60.392 ICD-9: 380.1008/1ResolvedScrotal skin lesionICD-10: N50.9 ICD-9: 608.908/esolvedTinea pedisICD-10: B35.3 ICD-9: 110.408/1ResolvedAnemia due to stage 3b chronic kidney diseaseICD- 10: N18.32 ICD-9: 285.2105/1ResolvedChronic kidney disease, stage 3 unspecifiedICD- 10: N18.3004/esolvedContact with and (suspected) exposure to other viral communicable diseasesICD-10: Z20.828 ICD-9: V01.7902/esolvedHyperhidrosis of palmsICD-10: L74.512 ICD-9: 705.2246JhftrnMyeqozvdQcgfmmd55/28/2020ActiveDiabetes mellitus Type 8Rbktwwa90/28/2020ActiveAnemia in chronic kidney diseaseICD-10: D63.1 02/12/2020ResolvedHyperlipidemia, unspecifiedICD-10: E78.509Resolved Medications Medication Codes Instructions Start Date Stop Date Status Fill Instructions Shingrix (PF) 50 mcg/0.5 mL intramuscular suspension, kit RxNorm: 0966674 Administer 1/2 Milliliter(s) Intramuscular QD one time shingrix step 2 ( step 1 given 11/04/21) WITH needle - Nursing please administer upon arrival and once administered 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, electronic technologist, 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, and lot# so we can update MIIC 02/18/20 22 022 Inactive dispense with needle Shingrix (PF) 50 mcg/0.5 mL intramuscular suspension, kit RxNorm: 9334633 Administer 1/2 Milliliter(s) Intramuscular QD one time shingrix step 2 ( step 1 given 11/04/21) WITH needle - Nursing please administer upon arrival and once administered 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, electronic technologist, 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, and lot# so we can update MIIC 02/18/20 22 Inactive dispense with needle acetaminophen 500 mg tablet RxNorm: 339988 Take 1 Tablet(s) Oral TID 01/08/20 22 023 Active d/c PRN order Lyrica 150 mg capsule RxNorm: 186233 Take 1 Capsule(s) Oral QHS every night at bedtime 01/08/20 22 023 Inactive d/c 100mg dose polyethylene glycol 3350 17 gram/dose oral powder RxNorm: 306225 Take 17=1 capful Gram(s) Oral QD mix with 4-8oz of liquid 01/08/20 22 023 Active take this in addition to BID prn order Lyrica 100 mg capsule RxNorm: 636483 Take 1 Capsule(s) Oral QAM every morning 01/08/20 22 022 Inactive d/c 50mg dose Abilify 5 mg tablet RxNorm: 652602 Take 1 Tablet(s) Oral QD take 1 tab po QD #30 refill 5 dx: MDD 12/12/19 22 022 Inactive Abilify 5 mg tablet RxNorm: 046770 Take 1 Tablet(s) Oral QD take 1 tab po QD #30 refill 5 dx: MDD 12/12/19 22 022 Inactive chlorthalidone 25 mg tablet RxNorm: 708789 Take 1 Tablet(s) Oral QAM every morning 12/10/19 22 023 Active Novolog Flexpen U-100 Insulin aspart 100 unit/mL (3 mL) subcutaneous RxNorm: 6493198 Inject 42 Unit(s) Subcutaneous TID in addition to sliding scale 12/10/19 22 022 Inactive d/c 36u pregabalin 50 mg capsule RxNorm: 081413 Take 1 Capsule(s) Oral QAM every morning 11/12/19 22 022 Inactive tetanus-diphtheria toxoids-Td 2 Lf unit-2 Lf unit/0.5 mL IM suspension RxNorm: 139 Take 0.5 Miscellaneous Intramuscular 11/12/19 22 022 Inactive need tdap - nursing to administer upon arrival pregabalin 50 mg capsule RxNorm: 346162 Take 1 Capsule(s) Oral QAM every morning 10/16/19 22 022 Inactive pregabalin 50 mg capsule RxNorm: 831763 Take 1 Capsule(s) Oral QAM every morning 10/16/19 22 022 Inactive pregabalin 50 mg capsule RxNorm: 916401 1 Capsule(s) Oral QAM every morning 10/15/19 22 022 Inactive Shingrix (PF) 50 mcg/0.5 mL intramuscular suspension, kit RxNorm: 5662601 Administer 1/2 Milliliter(s) Intramuscular one time Nursing please administer upon arrival and once administered 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, electronic technologist, 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 10/09/19 22 022 Inactive shingrix step 1 Shingrix (PF) 50 mcg/0.5 mL intramuscular suspension, kit RxNorm: 7528078 Administer 1/2 Milliliter(s) Intramuscular one time Nursing please administer upon arrival and once administered 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, electronic technologist, 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 10/09/19 22 022 Inactive shingrix step 1 Novolog Flexpen U-100 Insulin aspart 100 unit/mL (3 mL) subcutaneous RxNorm: 7503956 Inject 10 Unit(s) Subcutaneous QHS every night at bedtime with nighttime snack 10/08/19 22 022 Inactive cholecalciferol (vitamin D3) 1,250 mcg (50,000 unit) capsule RxNorm: 342970 Take 1 Capsule(s) Oral QW once a week 10/08/19 22 No Stop Date Active tetanus,diphtheria toxoid ped (PF) 5 Lf unit-25 Lf unit/0.5 mL IM susp RxNorm: 28 Inject 1 Intramuscular once ADMINISTER PER CDC GUIDELINES 10/08/19 22 022 Inactive Tdap dx: tetanus prophylaxis, please dispense syringe and needle tetanus,diphtheria toxoid ped (PF) 5 Lf unit-25 Lf unit/0.5 mL IM susp RxNorm: 28 Inject 1 Intramuscular once ADMINISTER PER CDC GUIDELINES 10/08/19 22 Active Tdap dx: tetanus prophylaxis, please dispense syringe and needle Shingrix (PF) 50 mcg/0.5 mL intramuscular suspension, kit RxNorm: 3239893 ADMINISTER 2-DOSE SERIES PER CDC GUIDELINES 10/08/19 22 Active Shingrix (PF) 50 mcg/0.5 mL intramuscular suspension, kit RxNorm: 3806076 ADMINISTER 2-DOSE SERIES PER CDC GUIDELINES 10/08/19 22 Inactive Novolog Flexpen U-100 Insulin aspart 100 unit/mL (3 mL) subcutaneous RxNorm: 7558006 Inject 36 Unit(s) Subcutaneous TID in addition to sliding scale 10/08/19 Inactive Novofine Autocover 30 gauge x 1/3 needle RxNorm: Use 1 Miscellaneous UD as directed Use 1 needle as directed to administer insulin 5 times a day Dx:E11.42. 10/03/19 22 Inactive ok to substitute with any covered alternative pen needle benzoyl peroxide 10 % topical cleanser RxNorm: 998355 Apply 1 Application Topical QD apply to face, wash rinse and dry once daily (may change to QOD if drying) 08/19/19 22 Inactive (%covered by insurance) #60ml refill 11 dx: acne benzoyl peroxide 10 % topical cleanser RxNorm: 018748 Apply 1 Application Topical QD apply to face, wash rinse and dry once daily (may change to QOD if drying) 08/19/19 22 022 Inactive (%covered by insurance) #60ml refill 11 dx: acne benzoyl peroxide 10 % topical cleanser RxNorm: 422204 Apply 1 Application Topical QD apply to face, wash rinse and dry once daily (may change to QOD if drying) 08/19/19 22 022 Inactive (%covered by insurance) #60ml refill 11 dx: acne Lyrica 50 mg capsule RxNorm: 948439 Take 1 Capsule(s) Oral QAM every morning Take 1 capsule by mouth once daily 08/19/19 22 Inactive benzoyl peroxide 10 % topical cleanser RxNorm: 413649 Apply 1 Application Topical QD apply to face, wash rinse and dry once daily (may change to QOD if drying) 08/19/19 22 Inactive (%covered by insurance) #60ml refill 11 dx: acne Lyrica 100 mg capsule RxNorm: 675562 Take 1 Capsule(s) Oral QHS every night at bedtime Take 1 capsule by mouth once daily at bedtime 08/19/19 22 022 Inactive Lyrica 100 mg capsule RxNorm: 307574 Take 1 Capsule(s) Oral QHS every night at bedtime Take 1 capsule by mouth once daily at bedtime 08/16/19 22 022 Inactive Lyrica 50 mg capsule RxNorm: 145625 Take 1 Capsule(s) Oral QAM every morning Take 1 capsule by mouth once daily 08/16/19 22 Inactive Levemir FlexTouch U-100 Insulin 100 unit/mL (3 mL) subcutaneous pen RxNorm: 509521 Inject 86 Unit(s) Subcutaneous BID 08/05/19 22 022 Inactive d/c 83units BID Lyrica 100 mg capsule RxNorm: 805082 Take 1 Capsule(s) Oral QHS every night at bedtime Take 1 capsule by mouth once daily at bedtime 07/14/19 22 022 Inactive Lyrica 50 mg capsule RxNorm: 966713 Take 1 Capsule(s) Oral QAM every morning Take 1 capsule by mouth once daily 07/14/19 22 022 Inactive Levemir FlexTouch U-100 Insulin 100 unit/mL (3 mL) subcutaneous pen RxNorm: 682097 Inject 83 Unit(s) Subcutaneous BID 07/08/19 22 022 Inactive d/c 80units BID Accu-Chek Guide Glucose Meter RxNorm: Use 1 Miscellaneous UD as directed Use glucose meter to monitor blood glucose 4 times daily and as needed. Dx:E11.42 06/05/19 22 No Stop Date Active ok to substitute [...] 1 needle as directed to administer insulin. Dx:E11. 06/05/19 Inactive ok to substitute with any covered alternative pen needle Novofine Autocover 30 gauge x 1/3 needle RxNorm: Use 1 Miscellaneous UD as directed Use 1 needle as directed to administer insulin 5 times a day Dx:E11. 06/05/19 022 Inactive ok to substitute with any covered alternative pen needle Accu-Chek Guide test strips RxNorm: Use 1 Test Strip QID Use 1 test strip to monitor blood glucose 4 times daily and as needed. Dx:E11. 06/05/19 022 Inactive ok to substitute with any covered alternative test strip Accu-Chek Guide test strips RxNorm: Use 1 Test Strip QID Use 1 test strip to monitor blood glucose 4 times daily and as needed. Dx:E11. 06/05/19 022 Inactive ok to substitute with any covered alternative test strip hydralazine 50 mg tablet RxNorm: 291140 Take 1 Tablet(s) Oral QID 05/05/20 21 Inactive isosorbide mononitrate ER 30 mg tablet,extended release 24 hr RxNorm: 218392 Take 1 Tablet(s) Oral QD 05/05/20 No Stop Date Active venlafaxine ER 225 mg tablet,extended release 24 hr RxNorm: 859370 Take 1 Tablet(s) Oral QD 05/05/20 21 021 Inactive venlafaxine ER 225 mg tablet,extended release 24 hr RxNorm: 744560 Take 1 Tablet(s) Oral QD 05/05/20 21 022 Inactive hydralazine 50 mg tablet RxNorm: 026927 Take 1 Tablet(s) Oral QID 05/05/20 21 021 Inactive aspirin 81 mg tablet,delayed release RxNorm: 653213 Take 1 Tablet(s) Oral QD 03/31/20 21 022 Inactive Zetia 10 mg tablet RxNorm: 916929 Take 1 Tablet(s) Oral QD 03/31/20 022 Inactive Vitamin D2 1,250 mcg (50,000 unit) capsule RxNorm: 3048656 Take 1 Capsule(s) Oral QW once a week x 12 weeks 03/31/20 022 Inactive Vitamin D2 1,250 mcg (50,000 unit) capsule RxNorm: 1385138 Take 1 Capsule(s) Oral QW once a week 03/31/20 Inactive Zetia 10 mg tablet RxNorm: 887544 Take 1 Tablet(s) Oral QD 03/31/20 Inactive hydralazine 25 mg tablet RxNorm: 374081 Take 1 Tablet(s) Oral QID 03/31/20 Inactive hydralazine 25 mg tablet RxNorm: 967143 Take 1 Tablet(s) Oral QID 03/31/20 021 Inactive hydralazine 10 mg tablet RxNorm: 478319 Take 1 Tablet(s) Oral QID 03/03/20 021 Inactive cephalexin 500 mg tablet RxNorm: 973813 Take 1 Tablet(s) Oral QID 02/27/20 021 Inactive cephalexin 500 mg tablet RxNorm: 587644 Take 1 Tablet(s) Oral QID 02/27/20 021 Inactive lisinopril 40 mg tablet RxNorm: 247983 Take 1 Tablet(s) Oral QD 02/11/20 023 Inactive Eliquis 5 mg tablet RxNorm: 8790351 Take 1 Tablet(s) Oral BID 01/05/20 21 022 Inactive Eliquis 5 mg tablet RxNorm: 1037933 Take 2 Tablet(s) Oral QD 01/01/20 021 Inactive Lyrica 50 mg capsule RxNorm: 488149 Take 1 Capsule(s) Oral QAM every morning 12/24/19 021 Inactive Lyrica 100 mg capsule RxNorm: 244954 Take 1 Capsule(s) Oral QHS every night at bedtime 12/24/19 021 Inactive clotrimazole 1 % topical cream RxNorm: 990171 Apply to right foot and toes Topical BID 12/04/19 21 023 Inactive metoprolol succinate ER 200 mg tablet,extended release 24 hr RxNorm: 580422 Take 1 Tablet(s) Oral QD 12/04/19 21 023 Inactive ciprofloxacin 500 mg tablet RxNorm: 414483 Take 1 Tablet(s) Oral QD 11/30/19 021 Inactive DX ofloxacin otic drops Accu-Chek Guide test strips RxNorm: USE 1 TO CHECK GLUCOSE 4 TIMES DAILY AND NEEDED 11/15/19 21 023 Inactive Blood Glucose Test strips RxNorm: Use 1 Test Strip QID at PRN 11/05/19 21 023 Inactive E11.42 lisinopril 30 mg tablet RxNorm: 117306 Take 1 Tablet(s) Oral QD 10/30/19 021 Inactive lisinopril 20 mg tablet RxNorm: 376464 Take 1 Tablet(s) Oral QD 10/23/19 021 Inactive lisinopril 20 mg tablet RxNorm: 128434 Take 1 Tablet(s) Oral QD 10/23/19 21 021 Inactive lisinopril 10 mg tablet RxNorm: 206857 Take 1 Tablet(s) Oral QD 10/02/19 21 021 Inactive icosapent ethyl 1 gram capsule RxNorm: 3507833 Take 2 Capsule(s) (2 gm) Oral BID with meals 09/12/19 022 Inactive Okay to dispense one 2gm tab if you have that available. icosapent ethyl 1 gram capsule RxNorm: 8556403 Take 2 Capsule(s) Oral BID 09/12/19 21 021 Inactive Okay to dispense one 2gm tab if you have that available. amlodipine 10 mg tablet RxNorm: 418601 Take 1 Tablet(s) Oral QD 09/04/19 21 022 Inactive aspirin 81 mg tablet,delayed release RxNorm: 456769 Take 1 Tablet(s) Oral QD 09/04/19 21 021 Inactive Levemir FlexTouch U-100 Insulin 100 unit/mL (3 mL) subcutaneous pen RxNorm: 338692 Inject 150 Unit(s) Subcutaneous BID 09/04/19 21 022 Inactive venlafaxine ER 150 mg tablet,extended release 24 hr RxNorm: 364319 Take 1 Tablet(s) Oral QD 09/04/19 Inactive clotrimazole-betame thasone 1 %-0.05 % topical cream RxNorm: 212944 Apply to rash on red area on left abdomen/chest Topical BID 08/10/19 21 Inactive amlodipine 5 mg tablet RxNorm: 043041 Take 1 Tablet(s) Oral QD 07/31/19 Inactive cephalexin 500 mg tablet RxNorm: 344732 Take 1 Tablet(s) Oral BID BID - Twice Daily 07/31/19 Inactive Start 08/01/20 pantoprazole 40 mg tablet,delayed release RxNorm: 558958 Take 1 Tablet(s) Oral QAM every morning 07/08/19 022 Inactive senna 8.6 mg tablet RxNorm: 882281 Take 1 Tablet(s) Oral QD 07/08/19 21 022 Inactive pravastatin 80 mg tablet RxNorm: 551039 Take 1 Tablet(s) Oral QHS every night at bedtime 07/08/19 022 Inactive carbamazepine 200 mg tablet RxNorm: 862169 Take 1 Tablet(s) Oral BID 07/08/19 022 Inactive torsemide 20 mg tablet RxNorm: 266476 Take 1 Tablet(s) Oral QD 07/08/19 21 023 Inactive clopidogrel 75 mg tablet RxNorm: 605961 Take 1 Tablet(s) Oral QD 07/08/19 21 021 Inactive Blood Glucose Test strips RxNorm: Use 1 Test Strip QID at PRN 07/08/19 21 021 Inactive E11.42 Novolog Flexpen U-100 Insulin aspart 100 unit/mL (3 mL) subcutaneous RxNorm: 1515169 Administer per sliding scale Milliliter(s) Subcutaneous TID 151-200: 10 u; 201-250: 20 u; 251-300: 30 u; 301-350: 40 u; 351-400: 50 u. 07/08/19 21 022 Inactive lisinopril 5 mg tablet RxNorm: 149147 Take 1 Tablet(s) Oral QD 07/08/19 21 021 Inactive Novolog Flexpen U-100 Insulin aspart 100 unit/mL (3 mL) subcutaneous RxNorm: 8187729 Inject 85 Unit(s) Subcutaneous TID 07/08/19 21 022 Inactive clotrimazole 1 % topical cream RxNorm: 283450 Apply to bilateral groin areas Topical BID 07/08/19 21 Inactive metoprolol succinate ER 200 mg tablet,extended release 24 hr RxNorm: 285877 Take 1 Tablet(s) Oral QD 07/08/19 21 Inactive Vitamin D3 25 mcg (1,000 unit) tablet RxNorm: 124271 Take 1 Tablet(s) Oral QD 07/08/19 Inactive isosorbide dinitrate 30 mg tablet RxNorm: 291431 Take 1 Tablet(s) Oral QD 07/08/19 021 Inactive Levemir FlexTouch U-100 Insulin 100 unit/mL (3 mL) subcutaneous pen RxNorm: 394054 Inject 140 Unit(s) Subcutaneous BID 07/08/19 Inactive venlafaxine 75 mg tablet RxNorm: 625484 Take 1 Tablet(s) Oral QD 07/08/19 Inactive acetaminophen 500 mg tablet RxNorm: 534352 Take 1 Tablet(s) Oral TID as needed for headache 06/18/19 Inactive acetaminophen 500 mg tablet RxNorm: 854609 Take 1 Tablet(s) Oral TID as needed for headache 06/18/19 Inactive Lyrica 100 mg capsule RxNorm: 983204 Take 1 Capsule(s) Oral QHS every night at bedtime 06/11/19 021 Inactive Lyrica 50 mg capsule RxNorm: 546291 Take 1 Capsule(s) Oral QAM every morning 06/10/19 021 Inactive hydrocortisone 2.5 % topical cream RxNorm: 426221 Apply to bilateral groin creases Topical BID 05/15/20 20 021 Inactive clotrimazole 1 % topical cream RxNorm: 294441 Apply to bilateral groin areas Topical BID 05/15/20 20 021 Inactive Lyrica 50 mg capsule RxNorm: 530356 Take 1 Capsule(s) Oral QAM every morning 05/14/20 20 Inactive Lyrica 100 mg capsule RxNorm: 195690 Take 1 Capsule(s) Oral QHS every night [...] Inactive Nystop 100,000 unit/gram topical powder RxNorm: 251977 Apply to abd folds, under breasts and L side of groin Topical BID x 14 days, then BID PRN 04/08/20 20 021 Inactive dx: yeast dermatitis Lyrica 100 mg capsule RxNorm: 103916 Take 1 Capsule(s) Oral QHS every night at bedtime 03/13/20 20 020 Inactive Lyrica 50 mg capsule RxNorm: 230255 Take 1 Capsule(s) Oral QAM every morning 03/13/20 20 020 Inactive ketoconazole 2 % shampoo RxNorm: 221222 Apply Topical two times a week with showers 03/11/20 20 Inactive cholecalciferol (vitamin D3) 50 mcg (2,000 unit) tablet RxNorm: 877194 Take 1 Tablet(s) Oral QD 03/11/20 Inactive Zetia 10 mg tablet RxNorm: 070915 Take 1 Tablet(s) Oral QD 03/07/20 021 Inactive Zetia 10 mg tablet RxNorm: 804715 Take 1 Tablet(s) Oral QD 03/07/20 Inactive Lyrica 50 mg capsule RxNorm: 316848 Take 1 Capsule(s) Oral QAM every morning 02/15/20 Inactive Lyrica 100 mg capsule RxNorm: 316548 Take 1 Capsule(s) Oral QHS every night at bedtime 02/15/20 Inactive Lyrica 100 mg capsule RxNorm: 873695 Take 1 Capsule(s) Oral QHS every night at bedtime 02/15/20 Inactive Lyrica 50 mg capsule RxNorm: 974296 Take 1 Capsule(s) Oral QAM every morning 02/15/20 Inactive venlafaxine ER 75 mg capsule,extended release 24 hr RxNorm: 542528 Take 3 Capsule(s) Oral QD 06/12/2021 Activepolyethylene glycol 3350 17 gram/dose oral powderRxNorm: 491012Gmbo 17=1 capful Gram(s) Oral BID as needed mix with 4-8oz of ixvxam3406/12/2021ctive Levemir FlexTouch U-100 Insulin 100 unit/mL (3 mL) subcutaneous penRxNorm: 803537Uquyie 80 Unit(s) Subcutaneous BID07/14//Inactiveloperamide 2 mg capsuleRxNorm: 965547Cbjj 1 Capsule(s) Oral QID as lxmndy2606/12/2021ctive Novolog Flexpen U-100 Insulin aspart 100 unit/mL (3 mL) subcutaneousRxNorm: 3895624Njsbbv 30 Unit(s) Subcutaneous TID with meals/Inactive Medication Administered No Medication Administered data Immunizations Vaccine Codes Dose Date Status Tdap CVX: 115 02/12/2022 Tetanus, Diptheria, Pertussis CVX: 115 2021 Covid-19 (Adult) CVX: 207 0.25 06/18/2021 Complete Influenza CVX: 205 05/29/2021 Covid-19 Unknown 06/25/2020 Covid-19 CVX: 208 06/04/2020 Covid-19 CVX: 208 06/04/2020 Influenza CVX: 141 05/07/2020 Influenza CVX: 141 02/13/2019 Hepatitis B CVX: 43 02/16/2014 Hepatitis B CVX: 43 10/12/2013 Hepatitis B CVX: 43 03/14/2013 Tdap CVX: 115 05/07/2009 Tetanus, Diptheria, Pertussis CVX: 115 2008 Vital Signs Date Vital 02/18/2022 Blood Pressure 1: 167/72 Code: 8480-6 Heart Rate 1: 69 bpm Code: 8867-4 Height: 5'5 Code: 8302-2 Respiratory Rate: 18 bpm Temperature: 36.4 (C) / 97.6 (F) Reason For Visit No Reason For Visit data Encounters Encounter Performer Location Location Address Codes Cristiano e ([id number]) PSYCH DIAG EVAL W/ME D SRVCS Diagnosis: Major depression, recurrent[ICD10: F33.9] Diagnosis: Seizure disorder[ICD10: G40.909] Diagnosis: BMI 60.0-69.9, adult[ICD10: Z68.44] Diagnosis: Inappropriate sexual behavior[ICD10: Z72.89] Diagnosis: Type 2 diabetes mellitus with diabetic polyneuropathy, with long-term current use of insulin[ICD10: E11.42]Sandra Wiseman on [id number] [place] [id number]-9: [id number] Plan of Care Planned Activity Notes Codes Status Date Referral: [facility] WPtel: [address], [address] [id number] USReferralRecords Izfgxusc24/08/2023Patient Education: Patient Medication SrjennwXwiljkcox79/05/2022Patient Education: Influenza VaccineCompleted 02/18/2022ppointment: Tapan Shirley WPtel: [address] [facility] [place] [address] [id number]: [facility] CARLO WPtel: [address] [id number] HCVmtycomoRhjrorhtz39/12/2022Referral: General CardiologyReferralCompleted 1Referral: General PsychologistReferralClosed Instructions Comment Date Leonid is a Male being seen living at [facility]. Initial BPS visit 01/2020. PMHx including DMII, CAD w/ 5 stents, Depression, Seizure Disorder and CKD stage 3. He moved into [facility] in 12/2019 but after a hospitalization 05/2021 he moved to the [facility] to have closer nursing attention. Sister Jyotsna involved in his care cell# [phone] Guardian: Don (tapan met in person 09/01/21), now has Lexii (same group as don)Lab Schedule: /September* 10/06/2022 Inappropriate sexual behavio r No reports of inappropriate comments or behavior being made to staff members.?? Would encourage staff members to utilize setting firm boundaries with patient during cares. Epilepsy No recent seizure activity.?? Continue to monitor with concurrent use of psychotropic medication use.? BMI 60.0-69.9, adult Discussed attempting to participate in more activity in the house and exercise as tolerated, which would also likely improve mood.? Depression Plan to increase Abilify to 7.5mg daily.?? Encouraged him to come out of apartment as he is able.??Continue to appreciate [facility] involvement.?? Spoke with guardian, guardian planning to visit with him next week and will investigate phone complications. Diabetes Managed by primary care team.?? Monitor with obesity and concurrent use of psychotropic medication use.? .02/18/2022
--- OUTSIDE RECORDS SUMMARY | 2022-04-03 18:00 | XMS_ITS | CCD ---
Author Name Sandra Clark CNP Address [address] [place] [address] Phone Organization [facility] Phone Care Team Providers Care Mat Puncher Name Role Phone Tapan Shirley PA-C Primary Care Provider Unavailabl e Tapan Shirley PA-C Chronic Care Management Unavaila ble Summary Purpose DataExchange Insurance Providers Payer name Policy type / Coverage type Covered alliance party ID Effective Begin Date Effective End Date [place] Part B [id number] Unknown Unknown [place] Part B [id number] Unknown Unknown Family history Sister Brittany Suggs Diagnosis Age At Onset No Family Disease Entered N/A Runs in the family Diagnosis Age At Onset No Known Diseases N/A Sister Blanka Mcduffie Diagnosis Age At Onset No Family Disease Entered N/A Social History Social History Element Codes Description Effec tive Dates Marital status Unknown Single 10/07/2021 Living arrangements Unknown Retirement 09/03/[address]: 8529712 Non-Smoker / No History of Smoking 09/02/[address]: 899167230 No Alcohol Consum ption 09/02/2020 Allergies, Adverse Reactions, Alerts Substance Reaction Codes Entered Date Inactivated Date Status LISINOPRIL RxNorm: 7095270No Inactive DateActiveMetformin SZyRebsemt72/28/2020No Inactive DateActive Problems Condition Codes Effective Dates Condition St atus Major depression, recurrent ICD-10: F33. 9 ICD-9: 296.3011/2ActiveSeizure disorderICD-10: G40.909 ICD-9: 345.90112ActiveStage 2 chronic 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ICD-10: E11.22 ICD-9: 250.401/ctiveType 2 diabetes mellitus with diabetic polyneuropathy, with long-term current use of insulinICD-10: E11.42 ICD-9: 250.6011/2ActiveCellulitisICD-10: L03.90 ICD-9: 682.910/ctiveHyperlipidemia associated with type 2 diabetes mellitusICD-10: E11.69 ICD-9: 250.8010/ctiveRecurrent major depressive disorder, in partial remissionICD-10: F33.41 ICD-9: 296.3510/2ActiveReducible umbilical herniaICD-10: K42.9 ICD-9: 553.110/ctiveBMI 60.0-69.9, adultICD-10: Z68.44 ICD-9: V85.4410/ctiveInappropriate sexual behaviorICD-10: Z72.89 ICD-9: 312.8910/ctiveHx of deep venous thrombosisICD-10: Z86.718 ICD-9: V12.5109/ctiveHypercoagulable stateICD-10: D68.59 ICD-9: 289.8109/ctiveHypertensive heart disease without heart failure ICD-10: I11.9 ICD-9: 402.9009/2ActiveOnychogryposisICD-10: L60.2 ICD-9: 703.809/ctiveParaparesis of both lower limbsICD-10: G82.20 ICD-9: 344.1092ActivePVD (peripheral vascular disease)ICD-10: I73.9 ICD-9: 443.909/2ActiveDepressionICD-10: F32.9 ICD-9: 75331/2ResolvedDVT (deep venous thrombosis)ICD-10: I82.409 ICD-9: 453.4009/2ResolvedEncounter for immunizationICD-10: Z23 ICD-9: V03.8909/2ResolvedLong term (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 insulinICD-10: Z79.4 2ResolvedMuscular painICD-10: M79.10 ICD-9: 729.109/2ResolvedPain of right heelICD-10: M79.671 ICD-9: 729.509/esolvedCoronary artery disease involving [place] coronary artery of [place] heart, angina presence unspecifiedICD-10: I25.10 ICD-9: 414.0108/ctiveDandruff in adultICD-10: L21.0 ICD-9: 690.1808/ctiveHypertension associated with diabetesICD-10: E11.59 ICD-9: 250.8008/2ResolvedHistory of anemia due to CKDICD-10: N18.9 ICD-9: 585.907/ctiveSecondary hypertensionICD-10: I15.9 ICD-9: 405.9907/ctiveStage 2 chronic kidney diseaseICD-10: N18.2 ICD-9: 585.207/ctiveCandidiasis, intertrigoICD-10: B37.2 ICD-9: 112.306/ctiveGout due to renal impairmentICD-10: M10.30 ICD-9: 274.1006/ctivePreventative health careICD-10: Z00.00 ICD-9: V70.006/ctiveLower extremity edemaICD-10: R60.0 ICD-9: 782.305/2ActiveAmputated toe of right footICD-10: S98.131A ICD-9: 895.004/ctiveLearning disabilityICD-10: F81.9 ICD-9: 315.212/ctiveSkin tagICD-10: L91.8 ICD-9: 701.911/1ActiveVitamin D deficiencyICD-10: E55.9 ICD-9: 268.911/1ActiveCallus of heelICD-10: L84 ICD-9: 74388/ctiveImpacted cerumen, left earICD-10: H61.22 ICD-9: 380.408/1ActiveContact with and (suspected) exposure to covid-19 ICD-10: Z20.822 ICD-9: V01.7908/1ResolvedOther infective acute otitis externa of left ear ICD-10: H60.392 ICD-9: 380.1008/1ResolvedScrotal skin lesionICD-10: N50.9 ICD-9: 608.908/1ResolvedTinea pedisICD-10: B35.3 ICD-9: 110.408/1ResolvedAnemia due to stage 3b chronic kidney diseaseICD- 10: N18.32 ICD-9: 285.21051ResolvedChronic kidney disease, stage 3 unspecifiedICD- 10: N18.3004esolvedContact with and (suspected) exposure to other viral communicable diseasesICD-10: Z20.828 ICD-9: V01.7902esolvedHyperhidrosis of palmsICD-10: L74.512 ICD-9: 705.4472EglwvnBqvysrasFkelfme99/28/2020ActiveDiabetes mellitus Type 7Rrvkbex51/28/2020ActiveAnemia in chronic kidney diseaseICD-10: D63.1 02/12/2020ResolvedHyperlipidemia, unspecifiedICD-10: E78.509Resolved Medications Medication Codes Instructions Start Date Stop Date Status Fill Instructions Abilify 15 mg tablet RxNorm: 867070 1/2 Tablet(s) Oral QD 03/10/20 22 023 Inactive Shingrix (PF) 50 mcg/0.5 mL intramuscular suspension, kit RxNorm: 5483105 Administer 1/2 Milliliter(s) Intramuscular QD one time shingrix step 2 ( step 1 given 11/04/21) WITH needle - Nursing please administer upon arrival and once administered 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, cleaner housekeeping, 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, and lot# so we can update MIIC 02/18/20 22 022 Inactive dispense with needle Shingrix (PF) 50 mcg/0.5 mL intramuscular suspension, kit RxNorm: 9750108 Administer 1/2 Milliliter(s) Intramuscular QD one time shingrix step 2 ( step 1 given 11/04/21) WITH needle - Nursing please administer upon arrival and once administered 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, cleaner housekeeping, 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, and lot# so we can update MIIC 02/18/20 22 022 Inactive dispense with needle acetaminophen 500 mg tablet RxNorm: 153451 Take 1 Tablet(s) Oral TID 01/08/20 22 023 Active d/c PRN order Lyrica 150 mg capsule RxNorm: 261371 Take 1 Capsule(s) Oral QHS every night at bedtime 01/08/20 22 023 Inactive d/c 100mg dose polyethylene glycol 3350 17 gram/dose oral powder RxNorm: 707784 Take 17=1 capful Gram(s) Oral QD mix with 4-8oz of liquid 01/08/20 22 023 Active take this in addition to BID prn order Lyrica 100 mg capsule RxNorm: 593838 Take 1 Capsule(s) Oral QAM every morning 01/08/20 22 022 Inactive d/c 50mg dose Abilify 5 mg tablet RxNorm: 753997 Take 1 Tablet(s) Oral QD take 1 tab po QD #30 refill 5 dx: MDD 12/12/19 22 022 Inactive Abilify 5 mg tablet RxNorm: 606034 Take 1 Tablet(s) Oral QD take 1 tab po QD #30 refill 5 dx: MDD 12/12/19 22 022 Inactive chlorthalidone 25 mg tablet RxNorm: 498593 Take 1 Tablet(s) Oral QAM every morning 12/10/19 22 023 Active Novolog Flexpen U-100 Insulin aspart 100 unit/mL (3 mL) subcutaneous RxNorm: 4841141 Inject 42 Unit(s) Subcutaneous TID in addition to sliding scale 12/10/19 22 022 Inactive d/c 36u pregabalin 50 mg capsule RxNorm: 947362 Take 1 Capsule(s) Oral QAM every morning 11/12/19 22 022 Inactive tetanus-diphtheria toxoids-Td 2 Lf unit-2 Lf unit/0.5 mL IM suspension RxNorm: 139 Take 0.5 Miscellaneous Intramuscular 11/12/19 22 022 Inactive need tdap - nursing to administer upon arrival pregabalin 50 mg capsule RxNorm: 949921 Take 1 Capsule(s) Oral QAM every morning 10/16/19 22 022 Inactive pregabalin 50 mg capsule RxNorm: 222940 Take 1 Capsule(s) Oral QAM every morning 10/16/19 22 022 Inactive pregabalin 50 mg capsule RxNorm: 752578 1 Capsule(s) Oral QAM every morning 10/15/19 022 Inactive Shingrix (PF) 50 mcg/0.5 mL intramuscular suspension, kit RxNorm: 2692235 Administer 1/2 Milliliter(s) Intramuscular one time Nursing please administer upon arrival and once administered 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, cleaner housekeeping, 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 10/09/19 22 022 Inactive shingrix step 1 Shingrix (PF) 50 mcg/0.5 mL intramuscular suspension, kit RxNorm: 0983364 Administer 1/2 Milliliter(s) Intramuscular one time Nursing please administer upon arrival and once administered 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, cleaner housekeeping, 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 10/09/19 22 022 Inactive shingrix step 1 Novolog Flexpen U-100 Insulin aspart 100 unit/mL (3 mL) subcutaneous RxNorm: 0288866 Inject 10 Unit(s) Subcutaneous QHS every night at bedtime with nighttime snack 10/08/19 22 022 Inactive cholecalciferol (vitamin D3) 1,250 mcg (50,000 unit) capsule RxNorm: 091903 Take 1 Capsule(s) Oral QW once a week 10/08/19 22 No Stop Date Active tetanus,diphtheria toxoid ped (PF) 5 Lf unit-25 Lf unit/0.5 mL IM susp RxNorm: 28 Inject 1 Intramuscular once ADMINISTER PER CDC GUIDELINES 10/08/19 22 05/24/2 022 Inactive Tdap dx: tetanus prophylaxis, please dispense syringe and needle tetanus,diphtheria toxoid ped (PF) 5 Lf unit-25 Lf unit/0.5 mL IM susp RxNorm: 28 Inject 1 Intramuscular once ADMINISTER PER CDC GUIDELINES 10/08/19 22 Active Tdap dx: tetanus prophylaxis, please dispense syringe and needle Shingrix (PF) 50 mcg/0.5 mL intramuscular suspension, kit RxNorm: 9717303 ADMINISTER 2-DOSE SERIES PER CDC GUIDELINES 10/08/19 22 Active Shingrix (PF) 50 mcg/0.5 mL intramuscular suspension, kit RxNorm: 4117874 ADMINISTER 2-DOSE SERIES PER CDC GUIDELINES 10/08/19 Inactive Novolog Flexpen U-100 Insulin aspart 100 unit/mL (3 mL) subcutaneous RxNorm: 6541520 Inject 36 Unit(s) Subcutaneous TID in addition to sliding scale 10/08/19 Inactive Novofine Autocover 30 gauge x 1/3 needle RxNorm: Use 1 Miscellaneous UD as directed Use 1 needle as directed to administer insulin 5 times a day Dx:E11.42. 10/03/19 22 Inactive ok to substitute with any covered alternative pen needle benzoyl peroxide 10 % topical cleanser RxNorm: 446099 Apply 1 Application Topical QD apply to face, wash rinse and dry once daily (may change to QOD if drying) 08/19/19 22 022 Inactive (%covered by insurance) #60ml refill 11 dx: acne benzoyl peroxide 10 % topical cleanser RxNorm: 490075 Apply 1 Application Topical QD apply to face, wash rinse and dry once daily (may change to QOD if drying) 08/19/19 22 022 Inactive (%covered by insurance) #60ml refill 11 dx: acne benzoyl peroxide 10 % topical cleanser RxNorm: 661016 Apply 1 Application Topical QD apply to face, wash rinse and dry once daily (may change to QOD if drying) 08/19/19 22 022 Inactive (%covered by insurance) #60ml refill 11 dx: acne Lyrica 50 mg capsule RxNorm: 366096 Take 1 Capsule(s) Oral QAM every morning Take 1 capsule by mouth once daily 08/19/19 22 022 Inactive benzoyl peroxide 10 % topical cleanser RxNorm: 781783 Apply 1 Application Topical QD apply to face, wash rinse and dry once daily (may change to QOD if drying) 08/19/19 22 Inactive (%covered by insurance) #60ml refill 11 dx: acne Lyrica 100 mg capsule RxNorm: 370799 Take 1 Capsule(s) Oral QHS every night at bedtime Take 1 capsule by mouth once daily at bedtime 08/19/19 22 022 Inactive Lyrica 100 mg capsule RxNorm: 719377 Take 1 Capsule(s) Oral QHS every night at bedtime Take 1 capsule by mouth once daily at bedtime 08/16/19 22 022 Inactive Lyrica 50 mg capsule RxNorm: 953311 Take 1 Capsule(s) Oral QAM every morning Take 1 capsule by mouth once daily 08/16/19 22 022 Inactive Levemir FlexTouch U-100 Insulin 100 unit/mL (3 mL) subcutaneous pen RxNorm: 608504 Inject 86 Unit(s) Subcutaneous BID 08/05/19 22 022 Inactive d/c 83units BID Lyrica 100 mg capsule RxNorm: 078890 Take 1 Capsule(s) Oral QHS every night at bedtime Take 1 capsule by mouth once daily at bedtime 07/14/19 22 022 Inactive Lyrica 50 mg capsule RxNorm: 896144 Take 1 Capsule(s) Oral QAM every morning Take 1 capsule by mouth once daily 07/14/19 022 Inactive Levemir FlexTouch U-100 Insulin 100 unit/mL (3 mL) subcutaneous pen RxNorm: 407000 Inject 83 Unit(s) Subcutaneous BID 07/08/19 22 [...] glucose 4 times daily and as needed. Dx:E11.06/05/19 022 Inactive ok to substitute with any covered alternative meter Novofine Autocover 30 gauge x 1/3 needle RxNorm: Use 1 Miscellaneous UD as directed Use 1 needle as directed to administer insulin. Dx:E11. 06/05/19 022 Inactive ok to substitute [...] test strip hydralazine 50 mg tablet RxNorm: 156536 Take 1 Tablet(s) Oral QID 05/05/20 21 Inactive isosorbide mononitrate ER 30 mg tablet,extended release 24 hr RxNorm: 025979 Take 1 Tablet(s) Oral QD 05/05/20 No Stop Date Active venlafaxine ER 225 mg tablet,extended release 24 hr RxNorm: 256302 Take 1 Tablet(s) Oral QD 05/05/20 21 021 Inactive venlafaxine ER 225 mg tablet,extended release 24 hr RxNorm: 537701 Take 1 Tablet(s) Oral QD 05/05/20 21 022 Inactive hydralazine 50 mg tablet RxNorm: 363344 Take 1 Tablet(s) Oral QID 12/20/ 021 Inactive aspirin 81 mg tablet,delayed release RxNorm: 211992 Take 1 Tablet(s) Oral QD 03/31/20 Inactive Zetia 10 mg tablet RxNorm: 871145 Take 1 Tablet(s) Oral QD 03/31/20 Inactive Vitamin D2 1,250 mcg (50,000 unit) capsule RxNorm: 1261573 Take 1 Capsule(s) Oral QW once a week x 12 weeks 03/31/20 022 Inactive Vitamin D2 1,250 mcg (50,000 unit) capsule RxNorm: 5421007 Take 1 Capsule(s) Oral QW once a week 03/31/20 Inactive Zetia 10 mg tablet RxNorm: 375128 Take 1 Tablet(s) Oral QD 03/31/20 Inactive hydralazine 25 mg tablet RxNorm: 404716 Take 1 Tablet(s) Oral QID 03/31/20 021 Inactive hydralazine 25 mg tablet RxNorm: 783478 Take 1 Tablet(s) Oral QID 03/31/20 021 Inactive hydralazine 10 mg tablet RxNorm: 716801 Take 1 Tablet(s) Oral QID 03/03/20 021 Inactive cephalexin 500 mg tablet RxNorm: 196835 Take 1 Tablet(s) Oral QID 02/27/20 021 Inactive cephalexin 500 mg tablet RxNorm: 620389 Take 1 Tablet(s) Oral QID 02/27/20 021 Inactive lisinopril 40 mg tablet RxNorm: 540767 Take 1 Tablet(s) Oral QD 02/11/20 21 023 Inactive Eliquis 5 mg tablet RxNorm: 0393590 Take 1 Tablet(s) Oral BID 01/05/20 21 022 Inactive Eliquis 5 mg tablet RxNorm: 1015234 Take 2 Tablet(s) Oral QD 01/01/20 21 021 Inactive Lyrica 50 mg capsule RxNorm: 800587 Take 1 Capsule(s) Oral QAM every morning 12/24/1912/24/2 021 Inactive Lyrica 100 mg capsule RxNorm: 190332 Take 1 Capsule(s) Oral QHS every night at bedtime 12/24/19 21 021 Inactive clotrimazole 1 % topical cream RxNorm: 527183 Apply to right foot and toes Topical BID 12/04/19 21 023 Inactive metoprolol succinate ER 200 mg tablet,extended release 24 hr RxNorm: 083575 Take 1 Tablet(s) Oral QD 12/04/19 21 023 Inactive ciprofloxacin 500 mg tablet RxNorm: 735446 Take 1 Tablet(s) Oral QD 11/30/19 21 021 Inactive DX ofloxacin otic drops Accu-Chek Guide test strips RxNorm: USE 1 TO CHECK GLUCOSE 4 TIMES DAILY AND NEEDED 11/15/19 023 Inactive Blood Glucose Test strips RxNorm: Use 1 Test Strip QID at PRN 11/05/19 21 023 Inactive E11.42 lisinopril 30 mg tablet RxNorm: 427924 Take 1 Tablet(s) Oral QD 10/30/19 021 Inactive lisinopril 20 mg tablet RxNorm: 910089 Take 1 Tablet(s) Oral QD 10/23/19 21 021 Inactive lisinopril 20 mg tablet RxNorm: 829133 Take 1 Tablet(s) Oral QD 10/23/19 21 021 Inactive lisinopril 10 mg tablet RxNorm: 354961 Take 1 Tablet(s) Oral QD 10/02/19 21 021 Inactive icosapent ethyl 1 gram capsule RxNorm: 7216056 Take 2 Capsule(s) (2 gm) Oral BID with meals 09/12/19 21 022 Inactive Okay to dispense one 2gm tab if you have that available. icosapent ethyl 1 gram capsule RxNorm: 3431146 Take 2 Capsule(s) Oral BID 09/12/19 21 021 Inactive Okay to dispense one 2gm tab if you have that available. amlodipine 10 mg tablet RxNorm: 992989 Take 1 Tablet(s) Oral QD 09/04/19 022 Inactive aspirin 81 mg tablet,delayed release RxNorm: 883702 Take 1 Tablet(s) Oral QD 09/04/19 Inactive Levemir FlexTouch U-100 Insulin 100 unit/mL (3 mL) subcutaneous pen RxNorm: 135057 Inject 150 Unit(s) Subcutaneous BID 09/04/19 022 Inactive venlafaxine ER 150 mg tablet,extended release 24 hr RxNorm: 729272 Take 1 Tablet(s) Oral QD 09/04/19 021 Inactive clotrimazole-betame thasone 1 %-0.05 % topical cream RxNorm: 120246 Apply to rash on red area on left abdomen/chest Topical BID 08/10/19 Inactive amlodipine 5 mg tablet RxNorm: 911277 Take 1 Tablet(s) Oral QD 07/31/19 Inactive cephalexin 500 mg tablet RxNorm: 169292 Take 1 Tablet(s) Oral BID BID - Twice Daily 07/31/19 021 Inactive Start 08/01/20 pantoprazole 40 mg tablet,delayed release RxNorm: 168877 Take 1 Tablet(s) Oral QAM every morning 07/08/19 022 Inactive senna 8.6 mg tablet RxNorm: 113929 Take 1 Tablet(s) Oral QD 07/08/19 022 Inactive pravastatin 80 mg tablet RxNorm: 718437 Take 1 Tablet(s) Oral QHS every night at bedtime 07/08/19 022 Inactive carbamazepine 200 mg tablet RxNorm: 677685 Take 1 Tablet(s) Oral BID 07/08/19 022 Inactive torsemide 20 mg tablet RxNorm: 344855 Take 1 Tablet(s) Oral QD 07/08/19 21 023 Inactive clopidogrel 75 mg tablet RxNorm: 633589 Take 1 Tablet(s) Oral QD 07/08/19 21 021 Inactive Blood Glucose Test strips RxNorm: Use 1 Test Strip QID at PRN 07/08/19 21 021 Inactive E11.42 Novolog Flexpen U-100 Insulin aspart 100 unit/mL (3 mL) subcutaneous RxNorm: 7974795 Administer per sliding scale Milliliter(s) Subcutaneous TID 151-200: 10 u; 201-250: 20 u; 251-300: 30 u; 301-350: 40 u; 351-400: 50 u. 07/08/19 21 022 Inactive lisinopril 5 mg tablet RxNorm: 355717 Take 1 Tablet(s) Oral QD 07/08/19 21 021 Inactive Novolog Flexpen U-100 Insulin aspart 100 unit/mL (3 mL) subcutaneous RxNorm: 7987842 Inject 85 Unit(s) Subcutaneous TID 07/08/19 Inactive clotrimazole 1 % topical cream RxNorm: 756461 Apply to bilateral groin areas Topical BID 07/08/19 Inactive metoprolol succinate ER 200 mg tablet,extended release 24 hr RxNorm: 998350 Take 1 Tablet(s) Oral QD 07/08/19 21 Inactive Vitamin D3 25 mcg (1,000 unit) tablet RxNorm: 106659 Take 1 Tablet(s) Oral QD 07/08/19 Inactive isosorbide dinitrate 30 mg tablet RxNorm: 054908 Take 1 Tablet(s) Oral QD 07/08/19 021 Inactive Levemir FlexTouch U-100 Insulin 100 unit/mL (3 mL) subcutaneous pen RxNorm: 570395 Inject 140 Unit(s) Subcutaneous BID 07/08/19 021 Inactive venlafaxine 75 mg tablet RxNorm: 157643 Take 1 Tablet(s) Oral QD 07/08/19 Inactive acetaminophen 500 mg tablet RxNorm: 351999 Take 1 Tablet(s) Oral TID as needed for headache 06/18/19 21 Inactive acetaminophen 500 mg tablet RxNorm: 068989 Take 1 Tablet(s) Oral TID as needed for headache 06/18/19 21 Inactive Lyrica 100 mg capsule RxNorm: 831663 Take 1 Capsule(s) Oral QHS every night at bedtime 06/11/19 21 021 Inactive Lyrica 50 mg capsule RxNorm: 017170 Take 1 Capsule(s) Oral QAM every morning 06/10/19 21 021 Inactive hydrocortisone 2.5 % topical cream RxNorm: 642670 Apply to bilateral groin creases Topical BID 05/15/20 20 021 Inactive clotrimazole 1 % topical cream RxNorm: 964754 Apply to bilateral groin areas Topical BID 05/15/20 20 021 Inactive Lyrica 50 mg capsule RxNorm: 323436 Take 1 Capsule(s) Oral QAM every morning 05/14/20 20 020 Inactive Lyrica 100 mg capsule RxNorm: 809481 Take 1 Capsule(s) Oral QHS every night [...] Inactive Nystop 100,000 unit/gram topical powder RxNorm: 445046 Apply to abd folds, under breasts and L side of groin Topical BID x 14 days, then BID PRN 04/08/20 20 021 Inactive dx: yeast dermatitis Lyrica 100 mg capsule RxNorm: 124840 Take 1 Capsule(s) Oral QHS every night at bedtime 03/13/20 20 020 Inactive Lyrica 50 mg capsule RxNorm: 423105 Take 1 Capsule(s) Oral QAM every morning 03/13/20 20 Inactive ketoconazole 2 % shampoo RxNorm: 705750 Apply Topical two times a week with showers 03/11/20 Inactive cholecalciferol (vitamin D3) 50 mcg (2,000 unit) tablet RxNorm: 153837 Take 1 Tablet(s) Oral QD 03/11/20 Inactive Zetia 10 mg tablet RxNorm: 278165 Take 1 Tablet(s) Oral QD 03/07/20 Inactive Zetia 10 mg tablet RxNorm: 694790 Take 1 Tablet(s) Oral QD 03/07/20 Inactive Lyrica 50 mg capsule RxNorm: 951517 Take 1 Capsule(s) Oral QAM every morning 02/15/20 20 Inactive Lyrica 100 mg capsule RxNorm: 518447 Take 1 Capsule(s) Oral QHS every night at bedtime 02/15/20 Inactive Lyrica 100 mg capsule RxNorm: 245104 Take 1 Capsule(s) Oral QHS every night at bedtime 02/15/20 Inactive Lyrica 50 mg capsule RxNorm: 797193 Take 1 Capsule(s) Oral QAM every morning 02/15/20 20 Inactive venlafaxine ER 75 mg capsule,extended release 24 hr RxNorm: 717899 Take 3 Capsule(s) Oral QD 06/12/2021 Activepolyethylene glycol 3350 17 gram/dose oral powderRxNorm: 839891Ztbm 17=1 capful Gram(s) Oral BID as needed mix with 4-8oz of sjykbi7106/12/2021ctive Levemir FlexTouch U-100 Insulin 100 unit/mL (3 mL) subcutaneous penRxNorm: 361164Ijcrta 80 Unit(s) Subcutaneous BID/Inactiveloperamide 2 mg capsuleRxNorm: 251736Dwxy 1 Capsule(s) Oral QID as tlivic2106/12/2021ctive Novolog Flexpen U-100 Insulin aspart 100 unit/mL (3 mL) subcutaneousRxNorm: 4639385Rjhzts 30 Unit(s) Subcutaneous TID with mealsInactive Medication Administered No Medication Administered data Immunizations Vaccine Codes Dose Date Status Zostavax CVX: 187 03/24/2022 Zoster CVX: 187 03/24/2022 Tdap CVX: 115 02/12/2022 Tetanus, Diptheria, Pertussis [...] CVX: 115 2008 Vital Signs Date Vital 04/02/2022 Height: 5'5 Code: 8 302-2 Reason For Visit No Reason For Visit data Encounters Encounter Performer Location Location Address Codes Cristiano e ([id number]) DOMICIL VISIT EST PA Eli w/95 modifier Diagnosis: Major depression, recurrent[ICD10: F33.9] Diagnosis: Seizure disorder[ICD10: G40.909] Diagnosis: Type 2 diabetes mellitus with diabetic polyneuropathy, with long-term current use of insulin[ICD10: E11.42] Diagnosis: Stage 2 chronic 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[ICD10: E11.22]Sandra Wiseman on [id number] [place] [id number] CPT-4: [id number] Plan of Care Planned Activity Notes Codes Status Date Referral: [facility] [place] WPtel: [address], [address] [id number] USReferralRecords Jwrdfgak03/08/2023Patient Education: Patient Medication AiogcbpAphtocxnr49/17/2022atient Education: Influenza VaccineCompleted 04/02/2022ppointment: Tapan Shirley WPtel: [address] [id number]/U02Referral: [facility] WPtel: [address] [id number] INUnhgozzvZcndklwbz85/12/2022Referral: General CardiologyReferralCompleted 1Referral: General PsychologistReferralClosed Instructions Comment Date Leonid is a Male being seen living at [facility]. Initial BPS visit 01/2020. PMHx including DMII, CAD w/ 5 stents, Depression, Seizure Disorder and CKD stage 3. He moved into [facility] in 12/2019 but after a hospitalization 05/2021 he moved to the [facility] to have closer nursing attention. Sister Jyotsna involved in his care cell# [phone] Guardian: Don (tapan met in person 09/01/21), now has Lexii (same group as don)Lab Schedule: * 10/06/2022 Depression Has had weight loss.?? Continue to monitor mood with weight loss and encourage activity as able.? Holidays are typically a difficult time for patient per his and nursing report.?? Monitor mood closely. He is interested in meeting with a counselor.?? Will place referral. Continue Abilify 7.5mg daily, Venlafaxine 225mg dialy. Epilepsy No recent seizure activity.?? Continue to monitor with concurrent use of psychotropic medication use.? Diabetes Managed by primary care team.?? Monitor with obesity and concurrent use of psychotropic medication use.? .04/02/2022
--- OUTSIDE RECORDS SUMMARY | 2022-05-02 18:00 | XMS_ITS | CCD ---
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 Name Role Phone Tapan Shirley PA-C Primary Care Provider Unavailabl e Tapan Shirley PA-C Chronic Care Management Unavaila ble Summary Purpose DataExchange Insurance Providers Payer name Policy type / Coverage type Covered libertarian ID Effective Begin Date Effective End Date Medicare [place] Part B [id number] Unknown Unknown Medicaid [place] Medicare Part B [id number] Unknown Unknown Family history Sister Brittany Suggs Diagnosis Age At Onset No Family Disease Entered N/A Runs in the family Diagnosis Age At Onset No Known Diseases N/A Sister Blanka Mcduffie Diagnosis Age At Onset No Family Disease Entered N/A Social History Social History Element Codes Description Effec tive Dates Marital status Unknown Single 10/07/2021 Living arrangements Unknown Assisted 09/03/[address]: 3089589 Non-Smoker / No History of Smoking 09/02/[address]: 222436197 No Alcohol Consum ption 09/02/2020 Allergies, Adverse Reactions, Alerts Substance Reaction Codes Entered Date Inactivated Date Status LISINOPRIL RxNorm: 8187980No Inactive DateActiveMetformin CEoUzqnzge42/28/2020No Inactive DateActive Problems Condition Codes Effective Dates Condition St atus High risk medication use ICD-10: Z79.899 ICD-9: V58.692ActiveMajor depression, recurrentICD-10: F33.9 ICD-9: 296.3012ActiveVitamin D deficiencyICD-10: E55.9 ICD-9: 268.912ActiveCoronary artery disease involving [place] coronary artery of [place] heart, angina presence unspecifiedICD-10: I25.10 ICD-9: 414.0111/ctiveHyperlipidemia associated with type 2 diabetes mellitusICD-10: E11.69 ICD-9: 250.8011/ctiveHypertensive heart disease without heart failure ICD-10: I11.9 ICD-9: 402.9011/ctiveShortness of breathICD-10: R06.02 ICD-9: 786.0511ctiveStage 2 chronic 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ICD-10: E11.22 ICD-9: 250.4011/ctiveType 2 diabetes mellitus with diabetic polyneuropathy, with long-term current use of insulinICD-10: E11.42 ICD-9: 250.6011/ctiveSeizure disorderICD-10: G40.909 ICD-9: 345.9011ctiveCellulitisICD-10: L03.90 ICD-9: 682.910/ctiveRecurrent major depressive disorder, in partial remissionICD-10: F33.41 ICD-9: 296.3510/ctiveReducible umbilical herniaICD-10: K42.9 ICD-9: 553.110/ctiveBMI 60.0-69.9, adultICD-10: Z68.44 ICD-9: V85.4410/ctiveInappropriate sexual behaviorICD-10: Z72.89 ICD-9: 312.8910/ctiveHx of deep venous thrombosisICD-10: Z86.718 ICD-9: V12.5109/ctiveHypercoagulable stateICD-10: D68.59 ICD-9: 289.8109/ctiveOnychogryposisICD-10: L60.2 ICD-9: 703.809/ctiveParaparesis of both lower limbsICD-10: G82.20 ICD-9: 344.109/ctivePVD (peripheral vascular disease)ICD-10: I73.9 ICD-9: 443.909/2ActiveDepressionICD-10: F32.9 ICD-9: 27174/2ResolvedDVT (deep venous thrombosis)ICD-10: I82.409 ICD-9: 453.4009/2ResolvedEncounter for immunizationICD-10: Z23 ICD-9: V03.8909/2ResolvedLong term (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 insulinICD-10: Z79.4 092ResolvedMuscular painICD-10: M79.10 ICD-9: 729.109/2ResolvedPain of right heelICD-10: M79.671 ICD-9: 729.509/esolvedDandruff in adultICD-10: L21.0 ICD-9: 690.1808/ctiveHypertension associated with diabetesICD-10: E11.59 ICD-9: 250.8008/2ResolvedHistory of anemia due to CKDICD-10: N18.9 ICD-9: 585.907/2ActiveSecondary hypertensionICD-10: I15.9 ICD-9: 405.9907/2ActiveStage 2 chronic kidney diseaseICD-10: N18.2 ICD-9: 585.207/2ActiveCandidiasis, intertrigoICD-10: B37.2 ICD-9: 112.306/2ActiveGout due to renal impairmentICD-10: M10.30 ICD-9: 274.1006/2ActivePreventative health careICD-10: Z00.00 ICD-9: V70.006/2ActiveLower extremity edemaICD-10: R60.0 ICD-9: 782.305/2ActiveAmputated toe of right footICD-10: S98.131A ICD-9: 895.004/2ActiveLearning disabilityICD-10: F81.9 ICD-9: 315.212/1ActiveSkin tagICD-10: L91.8 ICD-9: 701.911/1ActiveCallus of heelICD-10: L84 ICD-9: 68235/1ActiveImpacted cerumen, left earICD-10: H61.22 ICD-9: 380.408/ctiveContact with and (suspected) exposure to covid-19 ICD-10: Z20.822 ICD-9: V01.7908/esolvedOther infective acute otitis externa of left ear ICD-10: H60.392 ICD-9: 380.1008/esolvedScrotal skin lesionICD-10: N50.9 ICD-9: 608.908/esolvedTinea pedisICD-10: B35.3 ICD-9: 110.408/esolvedAnemia due to stage 3b chronic kidney diseaseICD- 10: N18.32 ICD-9: 285.2105/esolvedChronic kidney disease, stage 3 unspecifiedICD- 10: N18.3004/esolvedContact with and (suspected) exposure to other viral communicable diseasesICD-10: Z20.828 ICD-9: V01.7902esolvedHyperhidrosis of palmsICD-10: L74.512 ICD-9: 705.4930IkpzvmIfypviglTrcnsko47/28/2020ActiveDiabetes mellitus Type 5Ktfylrd85/28/2020ActiveAnemia in chronic kidney diseaseICD-10: D63.1 02/12/2020ResolvedHyperlipidemia, unspecifiedICD-10: E78.509Resolved Medications Medication Codes Instructions Start Date Stop Date Status Fill Instructions Novolog Flexpen U-100 Insulin aspart 100 unit/mL (3 mL) subcutaneous RxNorm: 1843937 Inject 10 Unit(s) Subcutaneous QHS every night at bedtime with nighttime snack 04/08/20 22 022 Inactive Novolog Flexpen U-100 Insulin aspart 100 unit/mL (3 mL) subcutaneous RxNorm: 2106438 Inject 42 Unit(s) Subcutaneous TID in addition to sliding scale 04/08/20 022 Inactive d/c 36u albuterol sulfate HFA 90 mcg/actuation aerosol inhaler RxNorm: 0079355 Take 2 Puff(s) Inhalation Q4H every four hours as needed as needed for SOB, cough, or wheezing 04/07/20 030 Active diphenhydramine 50 mg tablet RxNorm: 2518049 Take 1 Tablet(s) Oral Q6H every 6 hours as needed 04/06/20 022 Inactive diphenhydramine 50 mg tablet RxNorm: 1417365 1 Tablet(s) Oral Q6H every 6 hours as needed 04/06/20 Inactive Abilify 15 mg tablet RxNorm: 617333 1/2 Tablet(s) Oral QD 03/10/20 023 Inactive Shingrix (PF) 50 mcg/0.5 mL intramuscular suspension, kit RxNorm: 8588181 Administer 1/2 Milliliter(s) Intramuscular QD one time shingrix step 2 ( step 1 given 11/04/21) WITH needle - Nursing please administer upon arrival and once administered 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, civil preparedness training officer, 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, and lot# so we can update [facility] 02/18/20 22 022 Inactive dispense with needle Shingrix (PF) 50 mcg/0.5 mL intramuscular suspension, kit RxNorm: 8637151 Administer 1/2 Milliliter(s) Intramuscular QD one time shingrix step 2 ( step 1 given 11/04/21) WITH needle - Nursing please administer upon arrival and once administered 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, civil preparedness training officer, 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, and lot# so we can update [facility] 02/18/20 22 022 Inactive dispense with needle acetaminophen 500 mg tablet RxNorm: 102223 Take 1 Tablet(s) Oral TID 01/08/20 22 023 Active d/c PRN order Lyrica 150 mg capsule RxNorm: 755175 Take 1 Capsule(s) Oral QHS every night at bedtime 01/08/20 22 023 Inactive d/c 100mg dose polyethylene glycol 3350 17 gram/dose oral powder RxNorm: 161288 Take 17=1 capful Gram(s) Oral QD mix with 4-8oz of liquid 01/08/20 22 023 Active take this in addition to BID prn order Lyrica 100 mg capsule RxNorm: 406101 Take 1 Capsule(s) Oral QAM every morning 01/08/20 22 022 Inactive d/c 50mg dose Abilify 5 mg tablet RxNorm: 226108 Take 1 Tablet(s) Oral QD take 1 tab po QD #30 refill 5 dx: MDD 12/12/19 22 022 Inactive Abilify 5 mg tablet RxNorm: 410508 Take 1 Tablet(s) Oral QD take 1 tab po QD #30 refill 5 dx: MDD 12/12/19 22 022 Inactive chlorthalidone 25 mg tablet RxNorm: 195276 Take 1 Tablet(s) Oral QAM every morning 12/10/19 22 023 Active Novolog Flexpen U-100 Insulin aspart 100 unit/mL (3 mL) subcutaneous RxNorm: 9013136 Inject 42 Unit(s) Subcutaneous TID in addition to sliding scale 12/10/19 22 022 Inactive d/c 36u pregabalin 50 mg capsule RxNorm: 698408 Take 1 Capsule(s) Oral QAM every morning 11/12/19 22 022 Inactive tetanus-diphtheria toxoids-Td 2 Lf unit-2 Lf unit/0.5 mL IM suspension RxNorm: 139 Take 0.5 Miscellaneous Intramuscular 11/12/19 22 022 Inactive need tdap - nursing to administer upon arrival pregabalin 50 mg capsule RxNorm: 937955 Take 1 Capsule(s) Oral QAM every morning 10/16/19 22 022 Inactive pregabalin 50 mg capsule RxNorm: 470707 Take 1 Capsule(s) Oral QAM every morning 10/16/19 22 022 Inactive pregabalin 50 mg capsule RxNorm: 053618 1 Capsule(s) Oral QAM every morning 10/15/19 22 022 Inactive Shingrix (PF) 50 mcg/0.5 mL intramuscular suspension, kit RxNorm: 9494806 Administer 1/2 Milliliter(s) Intramuscular one time Nursing please administer upon arrival and once administered 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, civil preparedness training officer, 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 10/09/19 22 022 Inactive shingrix step 1 Shingrix (PF) 50 mcg/0.5 mL intramuscular suspension, kit RxNorm: 3386729 Administer 1/2 Milliliter(s) Intramuscular one time Nursing please administer upon arrival and once administered 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, civil preparedness training officer, 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 10/09/19 22 022 Inactive shingrix step 1 cholecalciferol (vitamin D3) 1,250 mcg (50,000 unit) capsule RxNorm: 305022 Take 1 Capsule(s) Oral QW once a [...] tetanus prophylaxis, please dispense syringe and needle Novolog Flexpen U-100 Insulin aspart 100 unit/mL (3 mL) subcutaneous RxNorm: 7761043 Inject 10 Unit(s) Subcutaneous QHS every night at bedtime with nighttime snack 10/08/19 22 022 Inactive Shingrix (PF) 50 mcg/0.5 mL intramuscular suspension, kit RxNorm: 2550737 ADMINISTER 2-DOSE SERIES PER CDC GUIDELINES 10/08/19 22 022 Active Shingrix (PF) 50 mcg/0.5 mL intramuscular suspension, kit RxNorm: 3257086 ADMINISTER 2-DOSE SERIES PER CDC GUIDELINES 10/08/19 22 022 Inactive Novolog Flexpen U-100 Insulin aspart 100 unit/mL (3 mL) subcutaneous RxNorm: 8514072 Inject 36 Unit(s) Subcutaneous TID in addition to sliding scale 10/08/19 Inactive Novofine Autocover 30 gauge x 1/3 needle RxNorm: Use 1 Miscellaneous UD as directed Use 1 needle as directed to administer insulin 5 times a day Dx:E11.42. 10/03/19 22 Inactive ok to substitute with any covered alternative pen needle benzoyl peroxide 10 % topical cleanser RxNorm: 382920 Apply 1 Application Topical QD apply to face, wash rinse and dry once daily (may change to QOD if drying) 08/19/19 22 022 Inactive (%covered by insurance) #60ml refill 11 dx: acne benzoyl peroxide 10 % topical cleanser RxNorm: 477111 Apply 1 Application Topical QD apply to face, wash rinse and dry once daily (may change to QOD if drying) 08/19/19 022 Inactive (%covered by insurance) #60ml refill 11 dx: acne benzoyl peroxide 10 % topical cleanser RxNorm: 838057 Apply 1 Application Topical QD apply to face, wash rinse and dry once daily (may change to QOD if drying) 08/19/19 022 Inactive (%covered by insurance) #60ml refill 11 dx: acne Lyrica 50 mg capsule RxNorm: 897968 Take 1 Capsule(s) Oral QAM every morning Take 1 capsule by mouth once daily 08/19/19 022 Inactive benzoyl peroxide 10 % topical cleanser RxNorm: 479466 Apply 1 Application Topical QD apply to face, wash rinse and dry once daily (may change to QOD if drying) 08/19/19 22 022 Inactive (%covered by insurance) #60ml refill 11 dx: acne Lyrica 100 mg capsule RxNorm: 859941 Take 1 Capsule(s) Oral QHS every night at bedtime Take 1 capsule by mouth once daily at bedtime 08/19/19 22 022 Inactive Lyrica 100 mg capsule RxNorm: 125515 Take 1 Capsule(s) Oral QHS every night at bedtime Take 1 capsule by mouth once daily at bedtime 08/16/19 22 022 Inactive Lyrica 50 mg capsule RxNorm: 264471 Take 1 Capsule(s) Oral QAM every morning Take 1 capsule by mouth once daily 08/16/19 22 022 Inactive Levemir FlexTouch U-100 Insulin 100 unit/mL (3 mL) subcutaneous pen RxNorm: 891779 Inject 86 Unit(s) Subcutaneous BID 08/05/19 22 022 Inactive d/c 83units BID Lyrica 100 mg capsule RxNorm: 439119 Take 1 Capsule(s) Oral QHS every night at bedtime Take 1 capsule by mouth once daily at bedtime 07/14/19 22 022 Inactive Lyrica 50 mg capsule RxNorm: 198234 Take 1 Capsule(s) Oral QAM every morning Take 1 capsule by mouth once daily 07/14/19 22 022 Inactive Levemir FlexTouch U-100 Insulin 100 unit/mL (3 mL) subcutaneous pen RxNorm: 631413 Inject 83 Unit(s) Subcutaneous BID 07/08/19 22 [...] substitute with any covered alternative test strip isosorbide mononitrate ER 30 mg tablet,extended release 24 hr RxNorm: 629756 Take 1 Tablet(s) Oral QD 05/05/20 No Stop Date Active hydralazine 50 mg tablet RxNorm: 634995 Take 1 Tablet(s) Oral QID 05/05/20 022 Inactive venlafaxine ER 225 mg tablet,extended release 24 hr RxNorm: 424924 Take 1 Tablet(s) Oral QD 05/05/20 Inactive venlafaxine ER 225 mg tablet,extended release 24 hr RxNorm: 678347 Take 1 Tablet(s) Oral QD 05/05/20 022 Inactive hydralazine 50 mg tablet RxNorm: 161054 Take 1 Tablet(s) Oral QID 05/05/20 21 Inactive aspirin 81 mg tablet,delayed release RxNorm: 716233 Take 1 Tablet(s) Oral QD 03/31/20 022 Inactive Zetia 10 mg tablet RxNorm: 466675 Take 1 Tablet(s) Oral QD 03/31/20 Inactive Vitamin D2 1,250 mcg (50,000 unit) capsule RxNorm: 7681899 Take 1 Capsule(s) Oral QW once a week x 12 weeks 03/31/20 Inactive Vitamin D2 1,250 mcg (50,000 unit) capsule RxNorm: 8335488 Take 1 Capsule(s) Oral QW once a week 03/31/20 Inactive Zetia 10 mg tablet RxNorm: 306558 Take 1 Tablet(s) Oral QD 03/31/20 021 Inactive hydralazine 25 mg tablet RxNorm: 924352 Take 1 Tablet(s) Oral QID 03/31/20 021 Inactive hydralazine 25 mg tablet RxNorm: 690832 Take 1 Tablet(s) Oral QID 03/31/20 021 Inactive hydralazine 10 mg tablet RxNorm: 519749 Take 1 Tablet(s) Oral QID 03/03/20 021 Inactive cephalexin 500 mg tablet RxNorm: 572856 Take 1 Tablet(s) Oral QID 02/27/20 021 Inactive cephalexin 500 mg tablet RxNorm: 466777 Take 1 Tablet(s) Oral QID 02/27/20 021 Inactive lisinopril 40 mg tablet RxNorm: 184629 Take 1 Tablet(s) Oral QD 02/11/20 023 Inactive Eliquis 5 mg tablet RxNorm: 3347650 Take 1 Tablet(s) Oral BID 01/05/20 022 Inactive Eliquis 5 mg tablet RxNorm: 3846358 Take 2 Tablet(s) Oral QD 01/01/20 21 021 Inactive Lyrica 50 mg capsule RxNorm: 837331 Take 1 Capsule(s) Oral QAM every morning 12/24/19 021 Inactive Lyrica 100 mg capsule RxNorm: 467563 Take 1 Capsule(s) Oral QHS every night at bedtime 12/24/19 021 Inactive clotrimazole 1 % topical cream RxNorm: 676193 Apply to right foot and toes Topical BID 12/04/19 21 023 Inactive metoprolol succinate ER 200 mg tablet,extended release 24 hr RxNorm: 286296 Take 1 Tablet(s) Oral QD 12/04/19 21 023 Inactive ciprofloxacin 500 mg tablet RxNorm: 175371 Take 1 Tablet(s) Oral QD 11/30/19 21 021 Inactive DX ofloxacin otic drops Accu-Chek Guide test strips RxNorm: USE 1 TO CHECK GLUCOSE 4 TIMES DAILY AND NEEDED 11/15/19 21 023 Inactive Blood Glucose Test strips RxNorm: Use 1 Test Strip QID at PRN 11/05/19 21 023 Inactive E11.42 lisinopril 30 mg tablet RxNorm: 064924 Take 1 Tablet(s) Oral QD 10/30/19 021 Inactive lisinopril 20 mg tablet RxNorm: 584128 Take 1 Tablet(s) Oral QD 10/23/19 021 Inactive lisinopril 20 mg tablet RxNorm: 300797 Take 1 Tablet(s) Oral QD 10/23/19 21 021 Inactive lisinopril 10 mg tablet RxNorm: 624816 Take 1 Tablet(s) Oral QD 10/02/19 021 Inactive icosapent ethyl 1 gram capsule RxNorm: 3305668 Take 2 Capsule(s) (2 gm) Oral BID with meals 09/12/19 022 Inactive Okay to dispense one 2gm tab if you have that available. icosapent ethyl 1 gram capsule RxNorm: 5882963 Take 2 Capsule(s) Oral BID 09/12/19 021 Inactive Okay to dispense one 2gm tab if you have that available. amlodipine 10 mg tablet RxNorm: 081356 Take 1 Tablet(s) Oral QD 09/04/19 022 Inactive aspirin 81 mg tablet,delayed release RxNorm: 187721 Take 1 Tablet(s) Oral QD 09/04/19 21 021 Inactive Levemir FlexTouch U-100 Insulin 100 unit/mL (3 mL) subcutaneous pen RxNorm: 843202 Inject 150 Unit(s) Subcutaneous BID 09/04/19 21 022 Inactive venlafaxine ER 150 mg tablet,extended release 24 hr RxNorm: 878241 Take 1 Tablet(s) Oral QD 09/04/19 21 021 Inactive clotrimazole-betame thasone 1 %-0.05 % topical cream RxNorm: 692124 Apply to rash on red area on left abdomen/chest Topical BID 03/26/ Inactive amlodipine 5 mg tablet RxNorm: 359109 Take 1 Tablet(s) Oral QD 07/31/19 Inactive cephalexin 500 mg tablet RxNorm: 174549 Take 1 Tablet(s) Oral BID BID - Twice Daily 07/31/19 Inactive Start 08/01/20 pantoprazole 40 mg tablet,delayed release RxNorm: 460714 Take 1 Tablet(s) Oral QAM every morning 07/08/19 022 Inactive senna 8.6 mg tablet RxNorm: 433322 Take 1 Tablet(s) Oral QD 07/08/19 022 Inactive pravastatin 80 mg tablet RxNorm: 172821 Take 1 Tablet(s) Oral QHS every night at bedtime 07/08/19 Inactive carbamazepine 200 mg tablet RxNorm: 812514 Take 1 Tablet(s) Oral BID 07/08/19 022 Inactive torsemide 20 mg tablet RxNorm: 575662 Take 1 Tablet(s) Oral QD 07/08/19 023 Inactive clopidogrel 75 mg tablet RxNorm: 664227 Take 1 Tablet(s) Oral QD 07/08/19 021 Inactive Blood Glucose Test strips RxNorm: Use 1 Test Strip QID at PRN 07/08/19 Inactive E11.42 Novolog Flexpen U-100 Insulin aspart 100 unit/mL (3 mL) subcutaneous RxNorm: 4860541 Administer per sliding scale Milliliter(s) Subcutaneous TID 151-200: 10 u; 201-250: 20 u; 251-300: 30 u; 301-350: 40 u; 351-400: 50 u. 07/08/19 022 Inactive lisinopril 5 mg tablet RxNorm: 781360 Take 1 Tablet(s) Oral QD 07/08/19 021 Inactive Novolog Flexpen U-100 Insulin aspart 100 unit/mL (3 mL) subcutaneous RxNorm: 5139045 Inject 85 Unit(s) Subcutaneous TID 07/08/19 022 Inactive clotrimazole 1 % topical cream RxNorm: 591442 Apply to bilateral groin areas Topical BID 07/08/19 21 022 Inactive metoprolol succinate ER 200 mg tablet,extended release 24 hr RxNorm: 225300 Take 1 Tablet(s) Oral QD 07/08/19 021 Inactive Vitamin D3 25 mcg (1,000 unit) tablet RxNorm: 731698 Take 1 Tablet(s) Oral QD 07/08/19 021 Inactive isosorbide dinitrate 30 mg tablet RxNorm: 998472 Take 1 Tablet(s) Oral QD 07/08/19 021 Inactive Levemir FlexTouch U-100 Insulin 100 unit/mL (3 mL) subcutaneous pen RxNorm: 694261 Inject 140 Unit(s) Subcutaneous BID 07/08/19 Inactive venlafaxine 75 mg tablet RxNorm: 226692 Take 1 Tablet(s) Oral QD 07/08/19 021 Inactive acetaminophen 500 mg tablet RxNorm: 983835 Take 1 Tablet(s) Oral TID as needed for headache 06/18/19 Inactive acetaminophen 500 mg tablet RxNorm: 639915 Take 1 Tablet(s) Oral TID as needed for headache 06/18/19 021 Inactive Lyrica 100 mg capsule RxNorm: 606654 Take 1 Capsule(s) Oral QHS every night at bedtime 06/11/19 021 Inactive Lyrica 50 mg capsule RxNorm: 772612 Take 1 Capsule(s) Oral QAM every morning 06/10/19 21 021 Inactive hydrocortisone 2.5 % topical cream RxNorm: 034817 Apply to bilateral groin creases Topical BID 05/15/20 20 021 Inactive clotrimazole 1 % topical cream RxNorm: 350670 Apply to bilateral groin areas Topical BID 05/15/20 20 021 Inactive Lyrica 50 mg capsule RxNorm: 939920 Take 1 Capsule(s) Oral QAM every morning 05/14/20 20 020 Inactive Lyrica 100 mg capsule RxNorm: 942344 Take 1 Capsule(s) Oral QHS every night [...] Inactive Nystop 100,000 unit/gram topical powder RxNorm: 456042 Apply to abd folds, under breasts and L side of groin Topical BID x 14 days, then BID PRN 04/08/20 20 021 Inactive dx: yeast dermatitis Lyrica 100 mg capsule RxNorm: 470147 Take 1 Capsule(s) Oral QHS every night at bedtime 03/13/20 20 Inactive Lyrica 50 mg capsule RxNorm: 270241 Take 1 Capsule(s) Oral QAM every morning 03/13/20 20 Inactive ketoconazole 2 % shampoo RxNorm: 469530 Apply Topical two times a week with showers 03/11/20 20 Inactive cholecalciferol (vitamin D3) 50 mcg (2,000 unit) tablet RxNorm: 454055 Take 1 Tablet(s) Oral QD 03/11/20 20 Inactive Zetia 10 mg tablet RxNorm: 612830 Take 1 Tablet(s) Oral QD 03/07/20 20 021 Inactive Zetia 10 mg tablet RxNorm: 590674 Take 1 Tablet(s) Oral QD 03/07/20 20 020 Inactive Lyrica 50 mg capsule RxNorm: 528278 Take 1 Capsule(s) Oral QAM every morning 02/15/20 20 Inactive Lyrica 100 mg capsule RxNorm: 852211 Take 1 Capsule(s) Oral QHS every night at bedtime 02/15/20 Inactive Lyrica 100 mg capsule RxNorm: 247034 Take 1 Capsule(s) Oral QHS every night at bedtime 02/15/20 Inactive Lyrica 50 mg capsule RxNorm: 191684 Take 1 Capsule(s) Oral QAM every morning 02/15/20 Inactive venlafaxine ER 75 mg capsule,extended release 24 hr RxNorm: 263031 Take 3 Capsule(s) Oral QD 06/12/2021 Activepolyethylene glycol 3350 17 gram/dose oral powderRxNorm: 681406Bqxr 17=1 capful Gram(s) Oral BID as needed mix with 4-8oz of xdplos0306/12/2021ctive Levemir FlexTouch U-100 Insulin 100 unit/mL (3 mL) subcutaneous penRxNorm: 767867Vktcbi 80 Unit(s) Subcutaneous BID07/14//Inactiveloperamide 2 mg capsuleRxNorm: 893937Fvqw 1 Capsule(s) Oral QID as wggsqs1106/12/2021ctive Novolog Flexpen U-100 Insulin aspart 100 unit/mL (3 mL) subcutaneousRxNorm: 8965264Xbksdm 30 Unit(s) Subcutaneous TID with meals/Inactive Medication [...] CVX: 115 2008 Vital Signs Date Vital 05/01/2022 Height: 5'5 Code: 8 302-2 Reason For Visit No Reason For Visit data Encounters Encounter Performer Location Location Address Codes Cristiano e ([id number]) DOMICIL VISIT EST CARLO Benitez / modifier Diagnosis: Major depression, recurrent[ICD10: F33.9] Diagnosis: High risk medication use[ICD10: Z79.899] Diagnosis: Vitamin D deficiency[ICD10: E55.9]Sandra [address] [place] [address]WZK-4: [id number]/02/2021 Plan of Care Planned Activity Notes Codes Status Date Referral: [facility] WPtel: [address], [address] [id number] USReferralRecords Qduzyuhc96/08/2023Patient Education: Patient Medication BvqudbwQrjyuyyld17/16/2022Patient Education: Influenza VaccineCompleted 05/01/2022ppointment: Tapan Shirley WPtel: [address] [id number] US/U02Referral: [facility] CARLO WPtel: [address] [id number]/12/2022Referral: General CardiologyReferralCompleted 1Referral: General PsychologistReferralClosed Instructions Comment Date Leonid is a Male being seen living at [facility]. Initial BPS visit 01/2020. PMHx including DMII, CAD w/ 5 stents, Depression, Seizure Disorder and CKD stage 3. He moved into [facility] in 12/2019 but after a hospitalization 05/2021 he moved to the [facility] to have closer nursing attention. Sister Jyotsna involved in his care cell# [phone] Guardian: Don (tapan met in person 09/01/21), now has Lexii (same group as don)Lab Schedule: Mar-* 10/06/2022 Vitamin D Deficiency Managed by primary care.?? Monitor due to impact on mood.?? Currently on supplemental therapy. Depression Inquire on psychotherapy status with staff, appears that referral has been placed and staff/patientto follow up via Bridge messaging.? Continue Abilify 7.5mg daily, Venlafaxine 225mg daily.? High risk medication use Currently taking antipsychotic medications for depression. Monitor for sedation and falls. Screening for movement issues/concerns every visit. No adverse effects noted unless noted above. Will reviewmedications at every visit and attempt to reduce medications upon future assessment. Benefits currently outweigh the risks. .05/01/2022
--- OUTSIDE RECORDS SUMMARY | 2022-05-04 18:00 | XMS_ITS | CCD ---
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 Role Phone Rosalina Shirley PA-C Primary Care Provider Unavailabl e Rosalina Shirley PA-C Chronic Care Management Unavaila ble Summary Purpose DataExchange Insurance Providers Payer name Policy type / Coverage type Covered republican ID Effective Begin Date Effective End Date [place] Part B [id number] Unknown Unknown Medicaid [place] Medicare Part B [id number] Unknown Unknown Family history Sister Brittany Suggs Diagnosis Age At Onset No Family Disease Entered N/A Runs in the family Diagnosis Age At Onset No Known Diseases N/A Sister Blanka Mcduffie Diagnosis Age At Onset No Family Disease Entered N/A Social History Social History Element Codes Description Effec tive Dates Marital status Unknown Single 10/07/2021 Living arrangements Unknown Long-Term 09/03/[address]: 5917878 Non-Smoker / No History of Smoking 09/02/[address]: 743183747 No Alcohol Consum ption 09/02/2020 Allergies, Adverse Reactions, Alerts Substance Reaction Codes Entered Date Inactivated Date Status LISINOPRIL RxNorm: 8723276No Inactive DateActiveMetformin GFqEjeaqmh00/28/2020No Inactive DateActive Problems Condition Codes Effective Dates Condition St atus Hyperlipidemia associated with type 2 di abetes mellitus ICD-10: E11.69 ICD-9: 250.8012ctiveHypertensive heart disease without heart failure ICD-10: I11.9 ICD-9: 402.9012ctiveStage 2 chronic 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ICD-10: E11.22 ICD-9: 250.40107/06/2021ctiveType 2 diabetes mellitus with diabetic polyneuropathy, with long-term current use of insulinICD-10: E11.42 ICD-9: 250.6012/2ActiveHigh risk medication useICD-10: Z79.899 ICD-9: V58.6912/ctiveMajor depression, recurrentICD-10: F33.9 ICD-9: 296.3012/ctiveVitamin D deficiencyICD-10: E55.9 ICD-9: 268.912/ctiveCoronary artery disease involving nightmute coronary artery of nightmute heart, angina presence unspecifiedICD-10: I25.10 ICD-9: 414.0111/ctiveShortness of breathICD-10: R06.02 ICD-9: 786.0511/ctiveSeizure disorderICD-10: G40.909 ICD-9: 345.9011/ctiveCellulitisICD-10: L03.90 ICD-9: 682.910/ctiveRecurrent major depressive disorder, in partial remissionICD-10: F33.41 ICD-9: 296.3510/ctiveReducible umbilical herniaICD-10: K42.9 ICD-9: 553.110/ctiveBMI 60.0-69.9, adultICD-10: Z68.44 ICD-9: V85.4410/ctiveInappropriate sexual behaviorICD-10: Z72.89 ICD-9: 312.8910/ctiveHx of deep venous thrombosisICD-10: Z86.718 ICD-9: V12.5109/ctiveHypercoagulable stateICD-10: D68.59 ICD-9: 289.8109/ctiveOnychogryposisICD-10: L60.2 ICD-9: 703.809/ctiveParaparesis of both lower limbsICD-10: G82.20 ICD-9: 344.109/ctivePVD (peripheral vascular disease)ICD-10: I73.9 ICD-9: 443.909/2ActiveDepressionICD-10: F32.9 ICD-9: 80120/2ResolvedDVT (deep venous thrombosis)ICD-10: I82.409 ICD-9: 453.4009/2ResolvedEncounter for [...] L91.8 ICD-9: 701.911/1ActiveCallus of heelICD-10: L84 ICD-9: 02090/ctiveImpacted cerumen, left earICD-10: H61.22 ICD-9: 380.408/ctiveContact with [...] Z20.828 ICD-9: V01.7902esolvedHyperhidrosis of palmsICD-10: L74.512 ICD-9: 705.5118FdjjccHelvpaqwDuoygea84/28/2020ActiveDiabetes mellitus Type 8Tbhtuzl98/28/2020ActiveAnemia in chronic kidney diseaseICD-10: D63.1 02/12/2020ResolvedHyperlipidemia, unspecifiedICD-10: E78.509Resolved Medications Medication Codes Instructions Start Date Stop Date Status Fill Instructions Novolog Flexpen U-100 Insulin aspart 100 unit/mL (3 mL) subcutaneous RxNorm: 8411209 Inject 10 Unit(s) Subcutaneous QHS every night at bedtime with nighttime snack 04/08/20 22 022 Inactive Novolog Flexpen U-100 Insulin aspart 100 unit/mL (3 mL) subcutaneous RxNorm: 2156449 Inject 42 Unit(s) Subcutaneous TID in addition to sliding scale 04/08/20 022 Inactive d/c 36u albuterol sulfate HFA 90 mcg/actuation aerosol inhaler RxNorm: 0176030 Take 2 Puff(s) Inhalation Q4H every four hours as needed as needed for SOB, cough, or wheezing 04/07/20 030 Active diphenhydramine 50 mg tablet RxNorm: 6880268 Take 1 Tablet(s) Oral Q6H every 6 hours as needed 04/06/20 022 Inactive diphenhydramine 50 mg tablet RxNorm: 6859788 1 Tablet(s) Oral Q6H every 6 hours as needed 04/06/20 Inactive Abilify 15 mg tablet RxNorm: 792718 1/2 Tablet(s) Oral QD 03/10/20 023 Inactive Shingrix (PF) 50 mcg/0.5 mL intramuscular suspension, kit RxNorm: 3668104 Administer 1/2 Milliliter(s) Intramuscular QD one time shingrix step 2 ( step 1 given 11/04/21) WITH needle - Nursing please administer upon arrival and once administered 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, principal clerk, 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, and lot# so we can update [facility] 02/18/20 22 022 Inactive dispense with needle Shingrix (PF) 50 mcg/0.5 mL intramuscular suspension, kit RxNorm: 9446919 Administer 1/2 Milliliter(s) Intramuscular QD one time shingrix step 2 ( step 1 given 11/04/21) WITH needle - Nursing please administer upon arrival and once administered 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, principal clerk, 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, and lot# so we can update [facility] 02/18/20 22 022 Inactive dispense with needle acetaminophen 500 mg tablet RxNorm: 133885 Take 1 Tablet(s) Oral TID 01/08/20 22 023 Active d/c PRN order Lyrica 150 mg capsule RxNorm: 948647 Take 1 Capsule(s) Oral QHS every night at bedtime 01/08/20 22 023 Inactive d/c 100mg dose polyethylene glycol 3350 17 gram/dose oral powder RxNorm: 429380 Take 17=1 capful Gram(s) Oral QD mix with 4-8oz of liquid 01/08/20 22 023 Active take this in addition to BID prn order Lyrica 100 mg capsule RxNorm: 336412 Take 1 Capsule(s) Oral QAM every morning 01/08/20 22 022 Inactive d/c 50mg dose Abilify 5 mg tablet RxNorm: 723012 Take 1 Tablet(s) Oral QD take 1 tab po QD #30 refill 5 dx: MDD 12/12/19 22 022 Inactive Abilify 5 mg tablet RxNorm: 750833 Take 1 Tablet(s) Oral QD take 1 tab po QD #30 refill 5 dx: MDD 12/12/19 22 022 Inactive chlorthalidone 25 mg tablet RxNorm: 937754 Take 1 Tablet(s) Oral QAM every morning 12/10/19 22 023 Active Novolog Flexpen U-100 Insulin aspart 100 unit/mL (3 mL) subcutaneous RxNorm: 6948091 Inject 42 Unit(s) Subcutaneous TID in addition to sliding scale 12/10/19 22 022 Inactive d/c 36u pregabalin 50 mg capsule RxNorm: 313308 Take 1 Capsule(s) Oral QAM every morning 11/12/19 22 022 Inactive tetanus-diphtheria toxoids-Td 2 Lf unit-2 Lf unit/0.5 mL IM suspension RxNorm: 139 Take 0.5 Miscellaneous Intramuscular 11/12/19 22 022 Inactive need tdap - nursing to administer upon arrival pregabalin 50 mg capsule RxNorm: 820639 Take 1 Capsule(s) Oral QAM every morning 10/16/19 22 022 Inactive pregabalin 50 mg capsule RxNorm: 880566 Take 1 Capsule(s) Oral QAM every morning 10/16/19 22 022 Inactive pregabalin 50 mg capsule RxNorm: 804704 1 Capsule(s) Oral QAM every morning 10/15/19 22 022 Inactive Shingrix (PF) 50 mcg/0.5 mL intramuscular suspension, kit RxNorm: 5161259 Administer 1/2 Milliliter(s) Intramuscular one time Nursing please administer upon arrival and once administered 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, principal clerk, 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 10/09/19 22 022 Inactive shingrix step 1 Shingrix (PF) 50 mcg/0.5 mL intramuscular suspension, kit RxNorm: 5942658 Administer 1/2 Milliliter(s) Intramuscular one time Nursing please administer upon arrival and once administered 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, principal clerk, 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 10/09/19 22 022 Inactive shingrix step 1 cholecalciferol (vitamin D3) 1,250 mcg (50,000 unit) capsule RxNorm: 128582 Take 1 Capsule(s) Oral QW once a [...] aspart 100 unit/mL (3 mL) subcutaneous RxNorm: 9259215 Inject 10 Unit(s) Subcutaneous QHS every night at bedtime with nighttime snack 10/08/19 22 022 Inactive Shingrix (PF) 50 mcg/0.5 mL intramuscular suspension, kit RxNorm: 1570052 ADMINISTER 2-DOSE SERIES PER CDC GUIDELINES 10/08/19 22 022 Active Shingrix (PF) 50 mcg/0.5 mL intramuscular suspension, kit RxNorm: 3950398 ADMINISTER 2-DOSE SERIES PER CDC GUIDELINES 10/08/19 22 022 Inactive Novolog Flexpen U-100 Insulin aspart 100 unit/mL (3 mL) subcutaneous RxNorm: 6581552 Inject 36 Unit(s) Subcutaneous TID in addition to sliding scale 10/08/19 22 Inactive Novofine Autocover 30 gauge x 1/3 needle RxNorm: Use 1 Miscellaneous UD as directed Use 1 needle as directed to administer insulin 5 times a day Dx:E11.42. 10/03/19 22 Inactive ok to substitute with any covered alternative pen needle benzoyl peroxide 10 % topical cleanser RxNorm: 649731 Apply 1 Application Topical QD apply to face, wash rinse and dry once daily (may change to QOD if drying) 08/19/19 22 022 Inactive (%covered by insurance) #60ml refill 11 dx: acne benzoyl peroxide 10 % topical cleanser RxNorm: 416252 Apply 1 Application Topical QD apply to face, wash rinse and dry once daily (may change to QOD if drying) 08/19/19 022 Inactive (%covered by insurance) #60ml refill 11 dx: acne benzoyl peroxide 10 % topical cleanser RxNorm: 045231 Apply 1 Application Topical QD apply to face, wash rinse and dry once daily (may change to QOD if drying) 08/19/19 022 Inactive (%covered by insurance) #60ml refill 11 dx: acne Lyrica 50 mg capsule RxNorm: 348458 Take 1 Capsule(s) Oral QAM every morning Take 1 capsule by mouth once daily 08/19/19 022 Inactive benzoyl peroxide 10 % topical cleanser RxNorm: 573271 Apply 1 Application Topical QD apply to face, wash rinse and dry once daily (may change to QOD if drying) 08/19/19 22 022 Inactive (%covered by insurance) #60ml refill 11 dx: acne Lyrica 100 mg capsule RxNorm: 326169 Take 1 Capsule(s) Oral QHS every night at bedtime Take 1 capsule by mouth once daily at bedtime 08/19/19 22 022 Inactive Lyrica 100 mg capsule RxNorm: 695304 Take 1 Capsule(s) Oral QHS every night at bedtime Take 1 capsule by mouth once daily at bedtime 08/16/19 22 022 Inactive Lyrica 50 mg capsule RxNorm: 308218 Take 1 Capsule(s) Oral QAM every morning Take 1 capsule by mouth once daily 08/16/19 22 022 Inactive Levemir FlexTouch U-100 Insulin 100 unit/mL (3 mL) subcutaneous pen RxNorm: 303670 Inject 86 Unit(s) Subcutaneous BID 08/05/19 22 022 Inactive d/c 83units BID Lyrica 100 mg capsule RxNorm: 685863 Take 1 Capsule(s) Oral QHS every night at bedtime Take 1 capsule by mouth once daily at bedtime 07/14/19 22 022 Inactive Lyrica 50 mg capsule RxNorm: 626115 Take 1 Capsule(s) Oral QAM every morning Take 1 capsule by mouth once daily 07/14/19 22 022 Inactive Levemir FlexTouch U-100 Insulin 100 unit/mL (3 mL) subcutaneous pen RxNorm: 787156 Inject 83 Unit(s) Subcutaneous BID 07/08/19 22 022 Inactive d/c 80units BID Accu-Chek Guide Glucose Meter RxNorm: Use 1 Miscellaneous UD as directed Use glucose meter to monitor blood glucose 4 times daily and as needed. Dx:E1142 06/05/19 22 No Stop Date Active ok [...] 30 mg tablet,extended release 24 hr RxNorm: 370247 Take 1 Tablet(s) Oral QD 05/05/20 No Stop Date Active hydralazine 50 mg tablet RxNorm: 944723 Take 1 Tablet(s) Oral QID 05/05/20 21 022 Inactive venlafaxine ER 225 mg tablet,extended release 24 hr RxNorm: 007387 Take 1 Tablet(s) Oral QD 05/05/20 21 Inactive venlafaxine ER 225 mg tablet,extended release 24 hr RxNorm: 127179 Take 1 Tablet(s) Oral QD 05/05/20 21 022 Inactive hydralazine 50 mg tablet RxNorm: 218824 Take 1 Tablet(s) Oral QID 05/05/20 21 Inactive aspirin 81 mg tablet,delayed release RxNorm: 169001 Take 1 Tablet(s) Oral QD 03/31/20 21 Inactive Zetia 10 mg tablet RxNorm: 893581 Take 1 Tablet(s) Oral QD 03/31/20 Inactive Vitamin D2 1,250 mcg (50,000 unit) capsule RxNorm: 7902039 Take 1 Capsule(s) Oral QW once a week x 12 weeks 03/31/20 Inactive Vitamin D2 1,250 mcg (50,000 unit) capsule RxNorm: 8828065 Take 1 Capsule(s) Oral QW once a week 03/31/20 Inactive Zetia 10 mg tablet RxNorm: 702736 Take 1 Tablet(s) Oral QD 03/31/20 021 Inactive hydralazine 25 mg tablet RxNorm: 671265 Take 1 Tablet(s) Oral QID 03/31/20 021 Inactive hydralazine 25 mg tablet RxNorm: 393238 Take 1 Tablet(s) Oral QID 03/31/20 021 Inactive hydralazine 10 mg tablet RxNorm: 223940 Take 1 Tablet(s) Oral QID 03/03/20 021 Inactive cephalexin 500 mg tablet RxNorm: 367803 Take 1 Tablet(s) Oral QID 02/27/20 021 Inactive cephalexin 500 mg tablet RxNorm: 664015 Take 1 Tablet(s) Oral QID 02/27/20 021 Inactive lisinopril 40 mg tablet RxNorm: 889330 Take 1 Tablet(s) Oral QD 02/11/20 023 Inactive Eliquis 5 mg tablet RxNorm: 9060988 Take 1 Tablet(s) Oral BID 01/05/20 022 Inactive Eliquis 5 mg tablet RxNorm: 6779298 Take 2 Tablet(s) Oral QD 01/01/20 21 021 Inactive Lyrica 50 mg capsule RxNorm: 246793 Take 1 Capsule(s) Oral QAM every morning 12/24/19 021 Inactive Lyrica 100 mg capsule RxNorm: 084062 Take 1 Capsule(s) Oral QHS every night at bedtime 12/24/19 021 Inactive clotrimazole 1 % topical cream RxNorm: 871944 Apply to right foot and toes Topical BID 12/04/19 21 023 Inactive metoprolol succinate ER 200 mg tablet,extended release 24 hr RxNorm: 487085 Take 1 Tablet(s) Oral QD 12/04/19 21 023 Inactive ciprofloxacin 500 mg tablet RxNorm: 180112 Take 1 Tablet(s) Oral QD 11/30/19 21 021 Inactive DX ofloxacin otic drops Accu-Chek Guide test strips RxNorm: USE 1 TO CHECK GLUCOSE 4 TIMES DAILY AND NEEDED 11/15/19 21 023 Inactive Blood Glucose Test strips RxNorm: Use 1 Test Strip QID at PRN 11/05/19 21 023 Inactive E11.42 lisinopril 30 mg tablet RxNorm: 368525 Take 1 Tablet(s) Oral QD 10/30/19 021 Inactive lisinopril 20 mg tablet RxNorm: 536566 Take 1 Tablet(s) Oral QD 10/23/19 021 Inactive lisinopril 20 mg tablet RxNorm: 685109 Take 1 Tablet(s) Oral QD 10/23/19 21 021 Inactive lisinopril 10 mg tablet RxNorm: 550047 Take 1 Tablet(s) Oral QD 10/02/19 021 Inactive icosapent ethyl 1 gram capsule RxNorm: 6611213 Take 2 Capsule(s) (2 gm) Oral BID with meals 09/12/19 022 Inactive Okay to dispense one 2gm tab if you have that available. icosapent ethyl 1 gram capsule RxNorm: 8167052 Take 2 Capsule(s) Oral BID 09/12/19 021 Inactive Okay to dispense one 2gm tab if you have that available. amlodipine 10 mg tablet RxNorm: 209528 Take 1 Tablet(s) Oral QD 09/04/19 022 Inactive aspirin 81 mg tablet,delayed release RxNorm: 502903 Take 1 Tablet(s) Oral QD 09/04/19 Inactive Levemir FlexTouch U-100 Insulin 100 unit/mL (3 mL) subcutaneous pen RxNorm: 278505 Inject 150 Unit(s) Subcutaneous BID 09/04/19 21 022 Inactive venlafaxine ER 150 mg tablet,extended release 24 hr RxNorm: 609738 Take 1 Tablet(s) Oral QD 09/04/19 21 021 Inactive clotrimazole-betame thasone 1 %-0.05 % topical cream RxNorm: 736121 Apply to rash on red area on left abdomen/chest Topical BID 03/ Inactive amlodipine 5 mg tablet RxNorm: 344260 Take 1 Tablet(s) Oral QD 07/31/19 Inactive cephalexin 500 mg tablet RxNorm: 226683 Take 1 Tablet(s) Oral BID BID - Twice Daily 07/31/19 Inactive Start 08/01/20 pantoprazole 40 mg tablet,delayed release RxNorm: 392387 Take 1 Tablet(s) Oral QAM every morning 07/08/19 022 Inactive senna 8.6 mg tablet RxNorm: 986959 Take 1 Tablet(s) Oral QD 07/08/19 Inactive pravastatin 80 mg tablet RxNorm: 148973 Take 1 Tablet(s) Oral QHS every night at bedtime 07/08/19 Inactive carbamazepine 200 mg tablet RxNorm: 080184 Take 1 Tablet(s) Oral BID 07/08/19 022 Inactive torsemide 20 mg tablet RxNorm: 134350 Take 1 Tablet(s) Oral QD 07/08/19 023 Inactive clopidogrel 75 mg tablet RxNorm: 776842 Take 1 Tablet(s) Oral QD 07/08/19 021 Inactive Blood Glucose Test strips RxNorm: Use 1 Test Strip QID at PRN 07/08/19 Inactive E11.42 Novolog Flexpen U-100 Insulin aspart 100 unit/mL (3 mL) subcutaneous RxNorm: 4272551 Administer per sliding scale Milliliter(s) Subcutaneous TID 151-200: 10 u; 201-250: 20 u; 251-300: 30 u; 301-350: 40 u; 351-400: 50 u. 07/08/19 022 Inactive lisinopril 5 mg tablet RxNorm: 580096 Take 1 Tablet(s) Oral QD 07/08/19 021 Inactive Novolog Flexpen U-100 Insulin aspart 100 unit/mL (3 mL) subcutaneous RxNorm: 9078306 Inject 85 Unit(s) Subcutaneous TID 07/08/19 022 Inactive clotrimazole 1 % topical cream RxNorm: 122588 Apply to bilateral groin areas Topical BID 07/08/19 21 022 Inactive metoprolol succinate ER 200 mg tablet,extended release 24 hr RxNorm: 940369 Take 1 Tablet(s) Oral QD 07/08/19 021 Inactive Vitamin D3 25 mcg (1,000 unit) tablet RxNorm: 455325 Take 1 Tablet(s) Oral QD 07/08/19 021 Inactive isosorbide dinitrate 30 mg tablet RxNorm: 164021 Take 1 Tablet(s) Oral QD 07/08/19 021 Inactive Levemir FlexTouch U-100 Insulin 100 unit/mL (3 mL) subcutaneous pen RxNorm: 040215 Inject 140 Unit(s) Subcutaneous BID 07/08/19 021 Inactive venlafaxine 75 mg tablet RxNorm: 460081 Take 1 Tablet(s) Oral QD 07/08/19 021 Inactive acetaminophen 500 mg tablet RxNorm: 259427 Take 1 Tablet(s) Oral TID as needed for headache 06/18/19 021 Inactive acetaminophen 500 mg tablet RxNorm: 407634 Take 1 Tablet(s) Oral TID as needed for headache 06/18/19 021 Inactive Lyrica 100 mg capsule RxNorm: 733561 Take 1 Capsule(s) Oral QHS every night at bedtime 06/11/19 021 Inactive Lyrica 50 mg capsule RxNorm: 972518 Take 1 Capsule(s) Oral QAM every morning 06/10/19 21 021 Inactive hydrocortisone 2.5 % topical cream RxNorm: 445794 Apply to bilateral groin creases Topical BID 05/15/20 20 021 Inactive clotrimazole 1 % topical cream RxNorm: 765777 Apply to bilateral groin areas Topical BID 05/15/20 20 021 Inactive Lyrica 50 mg capsule RxNorm: 437558 Take 1 Capsule(s) Oral QAM every morning 05/14/20 20 020 Inactive Lyrica 100 mg capsule RxNorm: 702473 Take 1 Capsule(s) Oral QHS every night [...] Inactive Nystop 100,000 unit/gram topical powder RxNorm: 594576 Apply to abd folds, under breasts and L side of groin Topical BID x 14 days, then BID PRN 04/08/20 20 021 Inactive dx: yeast dermatitis Lyrica 100 mg capsule RxNorm: 727627 Take 1 Capsule(s) Oral QHS every night at bedtime 03/13/20 20 Inactive Lyrica 50 mg capsule RxNorm: 912986 Take 1 Capsule(s) Oral QAM every morning 03/13/20 20 Inactive ketoconazole 2 % shampoo RxNorm: 117724 Apply Topical two times a week with showers 03/11/20 20 Inactive cholecalciferol (vitamin D3) 50 mcg (2,000 unit) tablet RxNorm: 512213 Take 1 Tablet(s) Oral QD 03/11/20 20 Inactive Zetia 10 mg tablet RxNorm: 003250 Take 1 Tablet(s) Oral QD 03/07/20 20 021 Inactive Zetia 10 mg tablet RxNorm: 444267 Take 1 Tablet(s) Oral QD 03/07/20 20 Inactive Lyrica 50 mg capsule RxNorm: 979429 Take 1 Capsule(s) Oral QAM every morning 02/15/20 20 Inactive Lyrica 100 mg capsule RxNorm: 269469 Take 1 Capsule(s) Oral QHS every night at bedtime 02/15/20 20 Inactive Lyrica 100 mg capsule RxNorm: 426314 Take 1 Capsule(s) Oral QHS every night at bedtime 02/15/20 20 Inactive Lyrica 50 mg capsule RxNorm: 499681 Take 1 Capsule(s) Oral QAM every morning 02/15/20 20 Inactive venlafaxine ER 75 mg capsule,extended release 24 hr RxNorm: 568985 Take 3 Capsule(s) Oral QD 06/12/2021 Activepolyethylene glycol 3350 17 gram/dose oral powderRxNorm: 464524Xidz 17=1 capful Gram(s) Oral BID as needed mix with 4-8oz of kznapw1406/12/2021ctive Levemir FlexTouch U-100 Insulin 100 unit/mL (3 mL) subcutaneous penRxNorm: 381179Nsxdyu 80 Unit(s) Subcutaneous BID07/14//Inactiveloperamide 2 mg capsuleRxNorm: 987238Sorc 1 Capsule(s) Oral QID as bnqfaw1506/12/2021ctive Novolog Flexpen U-100 Insulin aspart 100 unit/mL (3 mL) subcutaneousRxNorm: 8509897Mkgsxx 30 Unit(s) Subcutaneous TID with meals10/07//Inactive Medication Administered No Medication Administered data Immunizations [...] CVX: 115 2008 Vital Signs Date Vital 05/05/2022 Blood Pressure 1: 188/80 Code: 8480-6 Heart Rate 1: 77 bpm Code: 8867-4 Respiratory Rate: 18 bpm Temperature: 36.3 (C) / 97.4 (F) Reason For Visit No Reason For Visit data Encounters Encounter Performer Location Location Address Codes [place] e ([id number]) DOMICIL VISIT EST CARLO Benitez / modifier Diagnosis: Type 2 diabetes mellitus with diabetic polyneuropathy, with long-term current use of insulin[ICD10: E11.42] Diagnosis: Hyperlipidemia associated with type 2 diabetes mellitus[ICD10: E11.69] Diagnosis: Stage 2 chronic 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[ICD10: E11.22] Diagnosis: Hypertensive heart disease without heart failure[ICD10: I11.9]Andressa ZhengThe [place] [address] [place] [address]VDE-2: [id number] 05/05/2022 Plan of Care Planned Activity Notes Codes Status Date Referral: [facility] WPtel: [address] [id number] USReferralRecords Nuotezsw56/08/2023Patient Education: Patient Medication BeqwlriUunmxekpj30/20/2022Patient Education: Influenza VaccineCompleted 05/05/2022ppointment: Rosalina Shirley WPtel: [address] [id number]/U02Referral: [facility] CARLO WPtel: [address] [facility] [address] [id number] TCDamioxgvYgkcmeclr25/12/2022Referral: General CardiologyReferralCompleted 1Referral: General PsychologistReferralClosed Instructions Comment Date Leonid is a Male being seen living at [facility]. Initial BPS visit 01/2020. PMHx including DMII, CAD w/ 5 stents, Depression, Seizure Disorder and CKD stage 3. He moved into [facility] in 12/2019 but after a hospitalization 05/2021 he moved to the [facility] to have closer nursing attention. Sister Jyotsna involved in his care cell# [phone] Guardian: Don (rosalina met in person 09/01/21), now has Lexii (same group as don)Lab Schedule: Mar-/September* 10/06/2022 Diabetes blood sugars are elevated.?? Will increase night long acting and snack dosing Hypertension continuye to monitor BP and labs, encouraged follow up as scheduled .05/05/2022
--- OUTSIDE RECORDS SUMMARY | 2022-05-19 18:00 | XMS_ITS | CCD ---
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 Gizzard Puller Name Role Phone Tapan Shirley PA-C Primary Care Provider Unavailabl e Tapan Shirley PA-C Chronic Care Management Unavaila ble Summary Purpose DataExchange Insurance Providers Payer name Policy type / Coverage type Covered libertarian ID Effective Begin Date Effective End Date [place] [id number] Unknown Unknown [place] [id number] Unknown Unknown Family history Sister Brittany Suggs Diagnosis Age At Onset No Family Disease Entered N/A Runs in the family Diagnosis Age At Onset No Known Diseases N/A Sister Blanka Mcduffie Diagnosis Age At Onset No Family Disease Entered N/A Social History Social History Element Codes Description Effec tive Dates Marital status Unknown Single 10/07/2021 Living arrangements Unknown Jail 09/03/[address]: 0412995 Non-Smoker / No History of Smoking 09/02/[address]: 648722552 No Alcohol Consum ption 09/02/2020 Allergies, Adverse Reactions, Alerts Substance Reaction Codes Entered Date Inactivated Date Status LISINOPRIL RxNorm: 0374602No Inactive DateActiveMetformin DCrQmugnbl09/28/2020No Inactive DateActive Problems Condition Codes Effective Dates Condition St atus Hyperlipidemia associated with type 2 di abetes mellitus ICD-10: E11.69 ICD-9: 250.8012ctiveHypertensive heart disease without heart failure ICD-10: I11.9 ICD-9: 402.9012ctiveStage 2 chronic 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ICD-10: E11.22 ICD-9: 250.4012ctiveType 2 diabetes mellitus with diabetic polyneuropathy, with long-term current use of insulinICD-10: E11.42 ICD-9: 250.6012ctiveHigh risk medication useICD-10: Z79.899 ICD-9: V58.6912/ctiveMajor depression, recurrentICD-10: F33.9 ICD-9: 296.3012/2ActiveVitamin D deficiencyICD-10: E55.9 ICD-9: 268.912/2ActiveCoronary artery disease involving barrow coronary artery of barrow heart, angina presence unspecifiedICD-10: I25.10 ICD-9: 414.0111/ctiveShortness of breathICD-10: R06.02 ICD-9: 786.0511/ctiveSeizure disorderICD-10: G40.909 ICD-9: 345.9011ctiveCellulitisICD-10: L03.90 ICD-9: 682.910/ctiveRecurrent major depressive disorder, in partial remissionICD-10: F33.41 ICD-9: 296.3510/ctiveReducible umbilical herniaICD-10: K42.9 ICD-9: 553.110/2ActiveBMI 60.0-69.9, adultICD-10: Z68.44 ICD-9: V85.4410/ctiveInappropriate sexual behaviorICD-10: Z72.89 ICD-9: 312.8910/ctiveHx of deep venous thrombosisICD-10: Z86.718 ICD-9: V12.5109/ctiveHypercoagulable stateICD-10: D68.59 ICD-9: 289.8109/2ActiveOnychogryposisICD-10: L60.2 ICD-9: 703.809/2ActiveParaparesis of both lower limbsICD-10: G82.20 ICD-9: 344.109/2ActivePVD (peripheral vascular disease)ICD-10: I73.9 ICD-9: 443.909/2ActiveDepressionICD-10: F32.9 ICD-9: 63910/2ResolvedDVT (deep venous thrombosis)ICD-10: I82.409 ICD-9: 453.4009/2ResolvedEncounter for immunizationICD-10: Z23 ICD-9: V03.8909/2ResolvedLong term (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 insulinICD-10: Z79.4 02/10/2022esolvedMuscular painICD-10: M79.10 ICD-9: 729.109/2ResolvedPain of right heelICD-10: M79.671 ICD-9: 729.509/esolvedDandruff in adultICD-10: L21.0 ICD-9: 690.1808/2ActiveHypertension associated with diabetesICD-10: E11.59 ICD-9: 250.8008/2ResolvedHistory of anemia due to CKDICD-10: N18.9 ICD-9: 585.907/2ActiveSecondary hypertensionICD-10: I15.9 ICD-9: 405.9907/2ActiveStage 2 chronic kidney diseaseICD-10: N18.2 ICD-9: 585.207/2ActiveCandidiasis, intertrigoICD-10: B37.2 ICD-9: 112.306/ctiveGout due to renal impairmentICD-10: M10.30 ICD-9: 274.1006/ctivePreventative health careICD-10: Z00.00 ICD-9: V70.006/2ActiveLower extremity edemaICD-10: R60.0 ICD-9: 782.305/2ActiveAmputated toe of right footICD-10: S98.131A ICD-9: 895.004/ctiveLearning disabilityICD-10: F81.9 ICD-9: 315.212/1ActiveSkin tagICD-10: L91.8 ICD-9: 701.911/1ActiveCallus of heelICD-10: L84 ICD-9: 51604/ctiveImpacted cerumen, left earICD-10: H61.22 ICD-9: 380.408/1ActiveContact with and (suspected) exposure to covid-19 ICD-10: Z20.822 ICD-9: V01.7908/1ResolvedOther infective acute otitis externa of left ear ICD-10: H60.392 ICD-9: 380.1008/esolvedScrotal skin lesionICD-10: N50.9 ICD-9: 608.908/esolvedTinea pedisICD-10: B35.3 ICD-9: 110.408/esolvedAnemia due to stage 3b chronic kidney diseaseICD- 10: N18.32 ICD-9: 285.2105esolvedChronic kidney disease, stage 3 unspecifiedICD- 10: N18.3004esolvedContact with and (suspected) exposure to other viral communicable diseasesICD-10: Z20.828 ICD-9: V01.7902/esolvedHyperhidrosis of palmsICD-10: L74.512 ICD-9: 705.5235PukbxxFlpglxnwVjbljvv49/28/2020ActiveDiabetes mellitus Type 2Ydgcxvv24/28/2020ActiveAnemia in chronic kidney diseaseICD-10: D63.1 02/12/2020ResolvedHyperlipidemia, unspecifiedICD-10: E78.Resolved Medications Medication Codes Instructions Start Date Stop Date Status Fill Instructions Banophen 50 mg capsule RxNorm: 1718377 Take 1 Capsule(s) Oral Q6H every 6 hours as needed 05/19/19 23 No Stop Date Active Novolog Flexpen U-100 Insulin aspart 100 unit/mL (3 mL) subcutaneous RxNorm: 1002675 Inject 10 Unit(s) Subcutaneous QHS every night at bedtime with nighttime snack 04/08/20 22 022 Inactive Novolog Flexpen U-100 Insulin aspart 100 unit/mL (3 mL) subcutaneous RxNorm: 1297076 Inject 42 Unit(s) Subcutaneous TID in addition to sliding scale 04/08/20 022 Inactive d/c 36u albuterol sulfate HFA 90 mcg/actuation aerosol inhaler RxNorm: 1209603 Take 2 Puff(s) Inhalation Q4H every four hours as needed as needed for SOB, cough, or wheezing 04/07/20 030 Active Banophen 50 mg capsule RxNorm: 8718358 Take 1 Capsule(s) Oral Q6H every 6 hours as needed 04/06/20 023 Inactive diphenhydramine 50 mg tablet RxNorm: 7474498 Take 1 Tablet(s) Oral Q6H every 6 hours as needed 04/06/20 022 Inactive diphenhydramine 50 mg tablet RxNorm: 6961295 1 Tablet(s) Oral Q6H every 6 hours as needed 04/06/20 022 Inactive Abilify 15 mg tablet RxNorm: 361481 1/2 Tablet(s) Oral QD 03/10/20 023 Inactive Shingrix (PF) 50 mcg/0.5 mL intramuscular suspension, kit RxNorm: 6217887 Administer 1/2 Milliliter(s) Intramuscular QD one time shingrix step 2 ( step 1 given 11/04/21) WITH needle - Nursing please administer upon arrival and once administered 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, technical buyer, 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, and lot# so we can update [facility] 02/18/20 22 022 Inactive dispense with needle Shingrix (PF) 50 mcg/0.5 mL intramuscular suspension, kit RxNorm: 4316549 Administer 1/2 Milliliter(s) Intramuscular QD one time shingrix step 2 ( step 1 given 11/04/21) WITH needle - Nursing please administer upon arrival and once administered 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, technical buyer, 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, and lot# so we can update [facility]IC 02/18/20 22 022 Inactive dispense with needle acetaminophen 500 mg tablet RxNorm: 859179 Take 1 Tablet(s) Oral TID 01/08/20 22 023 Active d/c PRN order Lyrica 150 mg capsule RxNorm: 162229 Take 1 Capsule(s) Oral QHS every night at bedtime 01/08/20 22 023 Inactive d/c 100mg dose polyethylene glycol 3350 17 gram/dose oral powder RxNorm: 395428 Take 17=1 capful Gram(s) Oral QD mix with 4-8oz of liquid 01/08/20 22 023 Active take this in addition to BID prn order Lyrica 100 mg capsule RxNorm: 779866 Take 1 Capsule(s) Oral QAM every morning 01/08/20 22 022 Inactive d/c 50mg dose Abilify 5 mg tablet RxNorm: 892097 Take 1 Tablet(s) Oral QD take 1 tab po QD #30 refill 5 dx: MDD 12/12/19 22 022 Inactive Abilify 5 mg tablet RxNorm: 118460 Take 1 Tablet(s) Oral QD take 1 tab po QD #30 refill 5 dx: MDD 12/12/19 22 022 Inactive chlorthalidone 25 mg tablet RxNorm: 554757 Take 1 Tablet(s) Oral QAM every morning 12/10/19 22 023 Active Novolog Flexpen U-100 Insulin aspart 100 unit/mL (3 mL) subcutaneous RxNorm: 5188642 Inject 42 Unit(s) Subcutaneous TID in addition to sliding scale 12/10/19 22 022 Inactive d/c 36u pregabalin 50 mg capsule RxNorm: 294143 Take 1 Capsule(s) Oral QAM every morning 11/12/19 22 022 Inactive tetanus-diphtheria toxoids-Td 2 Lf unit-2 Lf unit/0.5 mL IM suspension RxNorm: 139 Take 0.5 Miscellaneous Intramuscular 11/12/19 22 022 Inactive need tdap - nursing to administer upon arrival pregabalin 50 mg capsule RxNorm: 362753 Take 1 Capsule(s) Oral QAM every morning 10/16/19 22 022 Inactive pregabalin 50 mg capsule RxNorm: 459896 Take 1 Capsule(s) Oral QAM every morning 10/16/19 22 022 Inactive pregabalin 50 mg capsule RxNorm: 508825 1 Capsule(s) Oral QAM every morning 10/15/19 22 Inactive Shingrix (PF) 50 mcg/0.5 mL intramuscular suspension, kit RxNorm: 9191030 Administer 1/2 Milliliter(s) Intramuscular one time Nursing please administer upon arrival and once administered 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, technical buyer, 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 10/09/19 22 022 Inactive shingrix step 1 Shingrix (PF) 50 mcg/0.5 mL intramuscular suspension, kit RxNorm: 1231350 Administer 1/2 Milliliter(s) Intramuscular one time Nursing please administer upon arrival and once administered 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, technical buyer, 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 10/09/19 22 022 Inactive shingrix step 1 cholecalciferol (vitamin D3) 1,250 mcg (50,000 unit) capsule RxNorm: 202061 Take 1 Capsule(s) Oral QW once a [...] aspart 100 unit/mL (3 mL) subcutaneous RxNorm: 1379316 Inject 10 Unit(s) Subcutaneous QHS every night at bedtime with nighttime snack 10/08/19 22 Inactive Shingrix (PF) 50 mcg/0.5 mL intramuscular suspension, kit RxNorm: 7231658 ADMINISTER 2-DOSE SERIES PER CDC GUIDELINES 10/08/19 22 022 Active Shingrix (PF) 50 mcg/0.5 mL intramuscular suspension, kit RxNorm: 8899063 ADMINISTER 2-DOSE SERIES PER CDC GUIDELINES 10/08/19 Inactive Novolog Flexpen U-100 Insulin aspart 100 unit/mL (3 mL) subcutaneous RxNorm: 2492655 Inject 36 Unit(s) Subcutaneous TID in addition to sliding scale 10/08/19 Inactive Novofine Autocover 30 gauge x 1/3 needle RxNorm: Use 1 Miscellaneous UD as directed Use 1 needle as directed to administer insulin 5 times a day Dx:E11.42. 10/03/19 Inactive ok to substitute with any covered alternative pen needle benzoyl peroxide 10 % topical cleanser RxNorm: 078772 Apply 1 Application Topical QD apply to face, wash rinse and dry once daily (may change to QOD if drying) 08/19/19 022 Inactive (%covered by insurance) #60ml refill 11 dx: acne benzoyl peroxide 10 % topical cleanser RxNorm: 083802 Apply 1 Application Topical QD apply to face, wash rinse and dry once daily (may change to QOD if drying) 08/19/19 022 Inactive (%covered by insurance) #60ml refill 11 dx: acne benzoyl peroxide 10 % topical cleanser RxNorm: 716580 Apply 1 Application Topical QD apply to face, wash rinse and dry once daily (may change to QOD if drying) 08/19/19 Inactive (%covered by insurance) #60ml refill 11 dx: acne Lyrica 50 mg capsule RxNorm: 527480 Take 1 Capsule(s) Oral QAM every morning Take 1 capsule by mouth once daily 08/19/19 22 Inactive benzoyl peroxide 10 % topical cleanser RxNorm: 827568 Apply 1 Application Topical QD apply to face, wash rinse and dry once daily (may change to QOD if drying) 08/19/19 22 022 Inactive (%covered by insurance) #60ml refill 11 dx: acne Lyrica 100 mg capsule RxNorm: 617864 Take 1 Capsule(s) Oral QHS every night at bedtime Take 1 capsule by mouth once daily at bedtime 08/19/19 22 Inactive Lyrica 100 mg capsule RxNorm: 424296 Take 1 Capsule(s) Oral QHS every night at bedtime Take 1 capsule by mouth once daily at bedtime 08/16/19 22 022 Inactive Lyrica 50 mg capsule RxNorm: 571668 Take 1 Capsule(s) Oral QAM every morning Take 1 capsule by mouth once daily 08/16/19 22 022 Inactive Levemir FlexTouch U-100 Insulin 100 unit/mL (3 mL) subcutaneous pen RxNorm: 687805 Inject 86 Unit(s) Subcutaneous BID 08/05/19 22 022 Inactive d/c 83units BID Lyrica 100 mg capsule RxNorm: 570411 Take 1 Capsule(s) Oral QHS every night at bedtime Take 1 capsule by mouth once daily at bedtime 07/14/19 22 022 Inactive Lyrica 50 mg capsule RxNorm: 543776 Take 1 Capsule(s) Oral QAM every morning Take 1 capsule by mouth once daily 07/14/19 22 022 Inactive Levemir FlexTouch U-100 Insulin 100 unit/mL (3 mL) subcutaneous pen RxNorm: 169734 Inject 83 Unit(s) Subcutaneous BID 07/08/19 22 [...] 30 mg tablet,extended release 24 hr RxNorm: 229233 Take 1 Tablet(s) Oral QD 05/05/20 No Stop Date Active hydralazine 50 mg tablet RxNorm: 533744 Take 1 Tablet(s) Oral QID 05/05/20 21 022 Inactive venlafaxine ER 225 mg tablet,extended release 24 hr RxNorm: 711405 Take 1 Tablet(s) Oral QD 05/05/20 21 Inactive venlafaxine ER 225 mg tablet,extended release 24 hr RxNorm: 703276 Take 1 Tablet(s) Oral QD 05/05/20 21 022 Inactive hydralazine 50 mg tablet RxNorm: 010476 Take 1 Tablet(s) Oral QID 05/05/20 21 021 Inactive aspirin 81 mg tablet,delayed release RxNorm: 618245 Take 1 Tablet(s) Oral QD 03/31/20 21 022 Inactive Zetia 10 mg tablet RxNorm: 114290 Take 1 Tablet(s) Oral QD 03/31/20 21 022 Inactive Vitamin D2 1,250 mcg (50,000 unit) capsule RxNorm: 4796138 Take 1 Capsule(s) Oral QW once a week x 12 weeks 03/31/20 022 Inactive Vitamin D2 1,250 mcg (50,000 unit) capsule RxNorm: 8092276 Take 1 Capsule(s) Oral QW once a week 03/31/20 021 Inactive Zetia 10 mg tablet RxNorm: 668682 Take 1 Tablet(s) Oral QD 03/31/20 021 Inactive hydralazine 25 mg tablet RxNorm: 428968 Take 1 Tablet(s) Oral QID 03/31/20 021 Inactive hydralazine 25 mg tablet RxNorm: 152493 Take 1 Tablet(s) Oral QID 03/31/20 021 Inactive hydralazine 10 mg tablet RxNorm: 397466 Take 1 Tablet(s) Oral QID 03/03/20 021 Inactive cephalexin 500 mg tablet RxNorm: 496951 Take 1 Tablet(s) Oral QID 02/27/20 021 Inactive cephalexin 500 mg tablet RxNorm: 921154 Take 1 Tablet(s) Oral QID 02/27/20 021 Inactive lisinopril 40 mg tablet RxNorm: 748333 Take 1 Tablet(s) Oral QD 02/11/20 023 Inactive Eliquis 5 mg tablet RxNorm: 1351054 Take 1 Tablet(s) Oral BID 01/05/20 022 Inactive Eliquis 5 mg tablet RxNorm: 8705898 Take 2 Tablet(s) Oral QD 01/01/20 21 021 Inactive Lyrica 50 mg capsule RxNorm: 979392 Take 1 Capsule(s) Oral QAM every morning 12/24/19 21 021 Inactive Lyrica 100 mg capsule RxNorm: 594379 Take 1 Capsule(s) Oral QHS every night at bedtime 12/24/19 021 Inactive clotrimazole 1 % topical cream RxNorm: 725367 Apply to right foot and toes Topical BID 12/04/19 21 023 Inactive metoprolol succinate ER 200 mg tablet,extended release 24 hr RxNorm: 848241 Take 1 Tablet(s) Oral QD 12/04/19 21 023 Inactive ciprofloxacin 500 mg tablet RxNorm: 770190 Take 1 Tablet(s) Oral QD 11/30/19 021 Inactive DX ofloxacin otic drops Accu-Chek Guide test strips RxNorm: USE 1 TO CHECK GLUCOSE 4 TIMES DAILY AND NEEDED 11/15/19 21 023 Inactive Blood Glucose Test strips RxNorm: Use 1 Test Strip QID at PRN 11/05/19 023 Inactive E11.42 lisinopril 30 mg tablet RxNorm: 604176 Take 1 Tablet(s) Oral QD 10/30/19 021 Inactive lisinopril 20 mg tablet RxNorm: 533079 Take 1 Tablet(s) Oral QD 10/23/19 021 Inactive lisinopril 20 mg tablet RxNorm: 602984 Take 1 Tablet(s) Oral QD 10/23/19 021 Inactive lisinopril 10 mg tablet RxNorm: 705517 Take 1 Tablet(s) Oral QD 10/02/19 021 Inactive icosapent ethyl 1 gram capsule RxNorm: 0139677 Take 2 Capsule(s) (2 gm) Oral BID with meals 09/12/19 022 Inactive Okay to dispense one 2gm tab if you have that available. icosapent ethyl 1 gram capsule RxNorm: 6525208 Take 2 Capsule(s) Oral BID 09/12/19 021 Inactive Okay to dispense one 2gm tab if you have that available. amlodipine 10 mg tablet RxNorm: 925387 Take 1 Tablet(s) Oral QD 09/04/19 022 Inactive aspirin 81 mg tablet,delayed release RxNorm: 941221 Take 1 Tablet(s) Oral QD 09/04/19 021 Inactive Levemir FlexTouch U-100 Insulin 100 unit/mL (3 mL) subcutaneous pen RxNorm: 722735 Inject 150 Unit(s) Subcutaneous BID 09/04/19 21 022 Inactive venlafaxine ER 150 mg tablet,extended release 24 hr RxNorm: 709246 Take 1 Tablet(s) Oral QD 09/04/19 21 021 Inactive clotrimazole-betame thasone 1 %-0.05 % topical cream RxNorm: 020053 Apply to rash on red area on left abdomen/chest Topical BID 08/10/19 21 Inactive amlodipine 5 mg tablet RxNorm: 095028 Take 1 Tablet(s) Oral QD 07/31/19 21 Inactive cephalexin 500 mg tablet RxNorm: 782169 Take 1 Tablet(s) Oral BID BID - Twice Daily 07/31/19 Inactive Start 08/01/20 pantoprazole 40 mg tablet,delayed release RxNorm: 383057 Take 1 Tablet(s) Oral QAM every morning 07/08/19 022 Inactive senna 8.6 mg tablet RxNorm: 400983 Take 1 Tablet(s) Oral QD 07/08/19 022 Inactive pravastatin 80 mg tablet RxNorm: 947073 Take 1 Tablet(s) Oral QHS every night at bedtime 07/08/19 Inactive carbamazepine 200 mg tablet RxNorm: 702738 Take 1 Tablet(s) Oral BID 07/08/19 022 Inactive torsemide 20 mg tablet RxNorm: 221219 Take 1 Tablet(s) Oral QD 07/08/19 023 Inactive clopidogrel 75 mg tablet RxNorm: 813088 Take 1 Tablet(s) Oral QD 07/08/19 021 Inactive Blood Glucose Test strips RxNorm: Use 1 Test Strip QID at PRN 07/08/19 Inactive E11.42 Novolog Flexpen U-100 Insulin aspart 100 unit/mL (3 mL) subcutaneous RxNorm: 4022042 Administer per sliding scale Milliliter(s) Subcutaneous TID 151-200: 10 u; 201-250: 20 u; 251-300: 30 u; 301-350: 40 u; 351-400: 50 u. 07/08/19 022 Inactive lisinopril 5 mg tablet RxNorm: 483322 Take 1 Tablet(s) Oral QD 07/08/19 021 Inactive Novolog Flexpen U-100 Insulin aspart 100 unit/mL (3 mL) subcutaneous RxNorm: 1959199 Inject 85 Unit(s) Subcutaneous TID 07/08/19 21 022 Inactive clotrimazole 1 % topical cream RxNorm: 942539 Apply to bilateral groin areas Topical BID 07/08/19 Inactive metoprolol succinate ER 200 mg tablet,extended release 24 hr RxNorm: 423607 Take 1 Tablet(s) Oral QD 07/08/19 Inactive Vitamin D3 25 mcg (1,000 unit) tablet RxNorm: 476152 Take 1 Tablet(s) Oral QD 07/08/19 Inactive isosorbide dinitrate 30 mg tablet RxNorm: 499960 Take 1 Tablet(s) Oral QD 07/08/19 Inactive Levemir FlexTouch U-100 Insulin 100 unit/mL (3 mL) subcutaneous pen RxNorm: 904041 Inject 140 Unit(s) Subcutaneous BID 07/08/19 Inactive venlafaxine 75 mg tablet RxNorm: 982798 Take 1 Tablet(s) Oral QD 07/08/19 Inactive acetaminophen 500 mg tablet RxNorm: 032456 Take 1 Tablet(s) Oral TID as needed for headache 06/18/19 Inactive acetaminophen 500 mg tablet RxNorm: 461380 Take 1 Tablet(s) Oral TID as needed for headache 06/18/19 Inactive Lyrica 100 mg capsule RxNorm: 352713 Take 1 Capsule(s) Oral QHS every night at bedtime 06/11/19 021 Inactive Lyrica 50 mg capsule RxNorm: 724439 Take 1 Capsule(s) Oral QAM every morning 06/10/19 021 Inactive hydrocortisone 2.5 % topical cream RxNorm: 893163 Apply to bilateral groin creases Topical BID 05/15/20 20 021 Inactive clotrimazole 1 % topical cream RxNorm: 261148 Apply to bilateral groin areas Topical BID 05/15/20 20 021 Inactive Lyrica 50 mg capsule RxNorm: 381605 Take 1 Capsule(s) Oral QAM every morning 05/14/20 20 Inactive Lyrica 100 mg capsule RxNorm: 660895 Take 1 Capsule(s) Oral QHS every night [...] Inactive Nystop 100,000 unit/gram topical powder RxNorm: 519210 Apply to abd folds, under breasts and L side of groin Topical BID x 14 days, then BID PRN 04/08/20 20 Inactive dx: yeast dermatitis Lyrica 100 mg capsule RxNorm: 841309 Take 1 Capsule(s) Oral QHS every night at bedtime 03/13/20 20 Inactive Lyrica 50 mg capsule RxNorm: 717945 Take 1 Capsule(s) Oral QAM every morning 03/13/20 20 Inactive ketoconazole 2 % shampoo RxNorm: 815785 Apply Topical two times a week with showers 03/11/20 20 Inactive cholecalciferol (vitamin D3) 50 mcg (2,000 unit) tablet RxNorm: 230144 Take 1 Tablet(s) Oral QD 03/11/20 20 Inactive Zetia 10 mg tablet RxNorm: 595291 Take 1 Tablet(s) Oral QD 03/07/20 20 021 Inactive Zetia 10 mg tablet RxNorm: 794461 Take 1 Tablet(s) Oral QD 03/07/20 Inactive Lyrica 50 mg capsule RxNorm: 531119 Take 1 Capsule(s) Oral QAM every morning 02/15/20 20 Inactive Lyrica 100 mg capsule RxNorm: 691509 Take 1 Capsule(s) Oral QHS every night at bedtime 02/15/20 20 Inactive Lyrica 100 mg capsule RxNorm: 787193 Take 1 Capsule(s) Oral QHS every night at bedtime 02/15/20 Inactive Lyrica 50 mg capsule RxNorm: 285154 Take 1 Capsule(s) Oral QAM every morning 02/15/20 Inactive venlafaxine ER 75 mg capsule,extended release 24 hr RxNorm: 072265 Take 3 Capsule(s) Oral QD 06/12/2021 Activepolyethylene glycol 3350 17 gram/dose oral powderRxNorm: 661810Roee 17=1 capful Gram(s) Oral BID as needed mix with 4-8oz of tlgmxe3606/12/2021ctive Levemir FlexTouch U-100 Insulin 100 unit/mL (3 mL) subcutaneous penRxNorm: 449706Qixpvn 80 Unit(s) Subcutaneous BID07/14//Inactiveloperamide 2 mg capsuleRxNorm: 103877Kron 1 Capsule(s) Oral QID as itwipr1706/12/2021ctive Novolog Flexpen U-100 Insulin aspart 100 unit/mL (3 mL) subcutaneousRxNorm: 3606398Spkvub 30 Unit(s) Subcutaneous TID with meals/Inactive Medication [...] Date Referral: [facility] WPtel: [address], [address] [id number] USReferralRecords Rrrxtbty12/08/2023Referral: [facility] WPtel: [address] [id number]/12/2022Referral: General CardiologyReferralCompleted 1Referral: General PsychologistReferralClosed Instructions Comment Date Leonid is a Male being seen living at [facility]. Initial [facility] visit 01/2020. PMHx including DMII, CAD w/ 5 stents, Depression, Seizure Disorder and CKD stage 3. He moved into [facility] in 12/2019 but after a hospitalization 05/2021 he moved to the [facility] to have closer nursing attention. Sister Jyotsna involved in his care cell# [phone] Guardian: Don (tapan met in person 09/01/21), now has Lexii (same group as don)Lab Schedule: * 10/06/2022
--- OUTSIDE RECORDS SUMMARY | 2022-06-02 18:00 | XMS_ITS | CCD ---
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 Idea Worker Name Role Phone Tapan Shirley PA-C Primary Care Provider Unavailabl e Tapan Shirley PA-C Chronic Care Management Unavaila ble Summary Purpose DataExchange Insurance Providers Payer name Policy type / Coverage type Covered libertarian ID Effective Begin Date Effective End Date [place] [id number] [place] [id number] Unknown Unknown Family history Sister Brittany Suggs Diagnosis Age At Onset No Family Disease Entered N/A Runs in the family Diagnosis Age At Onset No Known Diseases N/A Sister Blanka Mcduffie Diagnosis Age At Onset No Family Disease Entered N/A Social History Social History Element Codes Description Effec tive Dates Marital status Unknown Single 10/07/2021 Living arrangements Unknown Correction 09/03/[address]: 8247943 Non-Smoker / No History of Smoking 09/02/[address]: 135901589 No Alcohol Consum ption 09/02/2020 Allergies, Adverse Reactions, Alerts Substance Reaction Codes Entered Date Inactivated Date Status LISINOPRIL RxNorm: 1908778No Inactive DateActiveMetformin RKfCnhowwc64/28/2020No Inactive DateActive Problems Condition Codes Effective Dates [...] deficiencyICD-10: E55.9 ICD-9: 268.912/2ActiveCoronary artery disease involving [place] coronary artery of [place] heart, angina presence unspecifiedICD-10: I25.10 ICD-9: 414.0111/ctiveShortness [...] vascular disease)ICD-10: I73.9 ICD-9: 443.909/2ActiveDepressionICD-10: F32.9 ICD-9: 19315/2ResolvedDVT (deep venous thrombosis)ICD-10: I82.409 ICD-9: 453.4009/2ResolvedEncounter for [...] L91.8 ICD-9: 701.911/1ActiveCallus of heelICD-10: L84 ICD-9: 05072/ctiveImpacted cerumen, left earICD-10: H61.22 ICD-9: 380.408/1ActiveContact with and (suspected) exposure to covid-19 ICD-10: Z20.822 ICD-9: V01.7908/1ResolvedOther infective acute otitis externa of left ear ICD-10: H60.392 ICD-9: 380.1008/esolvedScrotal skin lesionICD-10: N50.9 ICD-9: 608.908/esolvedTinea pedisICD-10: B35.3 ICD-9: 110.408/esolvedAnemia due to stage 3b chronic kidney diseaseICD- 10: N18.32 ICD-9: 285.21010/01/2020esolvedChronic kidney disease, stage 3 unspecifiedICD- 10: N18.3004/esolvedContact with and (suspected) exposure to other viral communicable diseasesICD-10: Z20.828 ICD-9: V01.7902/esolvedHyperhidrosis of palmsICD-10: L74.512 ICD-9: 705.5290MovhaaJxyibnhfCkqspki96/28/2020ActiveDiabetes mellitus Type 1Erkbaeu02/28/2020ActiveAnemia in chronic kidney diseaseICD-10: D63.1 02/12/2020ResolvedHyperlipidemia, unspecifiedICD-10: E78.509Resolved Medications Medication Codes Instructions Start Date Stop Date Status Fill Instructions pregabalin 100 mg capsule RxNorm: 855348 1 Capsule(s) Oral QAM every morning 06/02/19 23 023 Inactive Banophen 50 mg capsule RxNorm: 7615692 Take 1 Capsule(s) Oral Q6H every 6 hours as needed 05/19/19 23 No Stop Date Active Novolog Flexpen U-100 Insulin aspart 100 unit/mL (3 mL) subcutaneous RxNorm: 1062006 Inject 10 Unit(s) Subcutaneous QHS every night at bedtime with nighttime snack 04/08/20 22 022 Inactive Novolog Flexpen U-100 Insulin aspart 100 unit/mL (3 mL) subcutaneous RxNorm: 5324362 Inject 42 Unit(s) Subcutaneous TID in addition to sliding scale 04/08/20 022 Inactive d/c 36u albuterol sulfate HFA 90 mcg/actuation aerosol inhaler RxNorm: 8912850 Take 2 Puff(s) Inhalation Q4H every four hours as needed as needed for SOB, cough, or wheezing 04/07/20 030 Active Banophen 50 mg capsule RxNorm: 1316022 Take 1 Capsule(s) Oral Q6H every 6 hours as needed 04/06/20 023 Inactive diphenhydramine 50 mg tablet RxNorm: 0098627 Take 1 Tablet(s) Oral Q6H every 6 hours as needed 04/06/20 022 Inactive diphenhydramine 50 mg tablet RxNorm: 6436085 1 Tablet(s) Oral Q6H every 6 hours as needed 04/06/20 022 Inactive Abilify 15 mg tablet RxNorm: 315073 1/2 Tablet(s) Oral QD 03/10/20 023 Inactive Shingrix (PF) 50 mcg/0.5 mL intramuscular suspension, kit RxNorm: 0762691 Administer 1/2 Milliliter(s) Intramuscular QD one time shingrix step 2 ( step 1 given 11/04/21) WITH needle - Nursing please administer upon arrival and once administered 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, practice representative, 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, and lot# so we can update [facility] 02/18/20 22 022 Inactive dispense with needle Shingrix (PF) 50 mcg/0.5 mL intramuscular suspension, kit RxNorm: 8015786 Administer 1/2 Milliliter(s) Intramuscular QD one time shingrix step 2 ( step 1 given 11/04/21) WITH needle - Nursing please administer upon arrival and once administered 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, practice representative, 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, and lot# so we can update [facility] 02/18/20 22 022 Inactive dispense with needle acetaminophen 500 mg tablet RxNorm: 568480 Take 1 Tablet(s) Oral TID 01/08/20 22 023 Active d/c PRN order Lyrica 150 mg capsule RxNorm: 647353 Take 1 Capsule(s) Oral QHS every night at bedtime 01/08/20 22 023 Inactive d/c 100mg dose polyethylene glycol 3350 17 gram/dose oral powder RxNorm: 536201 Take 17=1 capful Gram(s) Oral QD mix with 4-8oz of liquid 01/08/20 22 023 Active take this in addition to BID prn order Lyrica 100 mg capsule RxNorm: 746578 Take 1 Capsule(s) Oral QAM every morning 01/08/20 22 022 Inactive d/c 50mg dose Abilify 5 mg tablet RxNorm: 289929 Take 1 Tablet(s) Oral QD take 1 tab po QD #30 refill 5 dx: MDD 12/12/19 22 022 Inactive Abilify 5 mg tablet RxNorm: 712188 Take 1 Tablet(s) Oral QD take 1 tab po QD #30 refill 5 dx: MDD 12/12/19 22 022 Inactive chlorthalidone 25 mg tablet RxNorm: 852255 Take 1 Tablet(s) Oral QAM every morning 12/10/19 22 023 Active Novolog Flexpen U-100 Insulin aspart 100 unit/mL (3 mL) subcutaneous RxNorm: 8972314 Inject 42 Unit(s) Subcutaneous TID in addition to sliding scale 12/10/19 022 Inactive d/c 36u pregabalin 50 mg capsule RxNorm: 495205 Take 1 Capsule(s) Oral QAM every morning 11/12/19 22 022 Inactive tetanus-diphtheria toxoids-Td 2 Lf unit-2 Lf unit/0.5 mL IM suspension RxNorm: 139 Take 0.5 Miscellaneous Intramuscular 11/12/19 22 022 Inactive need tdap - nursing to administer upon arrival pregabalin 50 mg capsule RxNorm: 315218 Take 1 Capsule(s) Oral QAM every morning 10/16/19 22 022 Inactive pregabalin 50 mg capsule RxNorm: 235999 Take 1 Capsule(s) Oral QAM every morning 10/16/19 22 022 Inactive pregabalin 50 mg capsule RxNorm: 793722 1 Capsule(s) Oral QAM every morning 10/15/19 22 022 Inactive Shingrix (PF) 50 mcg/0.5 mL intramuscular suspension, kit RxNorm: 6875050 Administer 1/2 Milliliter(s) Intramuscular one time Nursing please administer upon arrival and once administered 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, practice representative, 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 10/09/19 22 022 Inactive shingrix step 1 Shingrix (PF) 50 mcg/0.5 mL intramuscular suspension, kit RxNorm: 7319447 Administer 1/2 Milliliter(s) Intramuscular one time Nursing please administer upon arrival and once administered 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, practice representative, 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 10/09/19 22 022 Inactive shingrix step 1 cholecalciferol (vitamin D3) 1,250 mcg (50,000 unit) capsule RxNorm: 771592 Take 1 Capsule(s) Oral QW once a [...] aspart 100 unit/mL (3 mL) subcutaneous RxNorm: 2629707 Inject 10 Unit(s) Subcutaneous QHS every night at bedtime with nighttime snack 10/08/19 22 022 Inactive Shingrix (PF) 50 mcg/0.5 mL intramuscular suspension, kit RxNorm: 5418312 ADMINISTER 2-DOSE SERIES PER CDC GUIDELINES 10/08/19 22 Active Shingrix (PF) 50 mcg/0.5 mL intramuscular suspension, kit RxNorm: 0835594 ADMINISTER 2-DOSE SERIES PER CDC GUIDELINES 10/08/19 22 Inactive Novolog Flexpen U-100 Insulin aspart 100 unit/mL (3 mL) subcutaneous RxNorm: 8133707 Inject 36 Unit(s) Subcutaneous TID in addition to sliding scale 10/08/19 Inactive Novofine Autocover 30 gauge x 1/3 needle RxNorm: Use 1 Miscellaneous UD as directed Use 1 needle as directed to administer insulin 5 times a day Dx:E11.42. 10/03/19 Inactive ok to substitute with any covered alternative pen needle benzoyl peroxide 10 % topical cleanser RxNorm: 781378 Apply 1 Application Topical QD apply to face, wash rinse and dry once daily (may change to QOD if drying) 08/19/19 Inactive (%covered by insurance) #60ml refill 11 dx: acne benzoyl peroxide 10 % topical cleanser RxNorm: 007420 Apply 1 Application Topical QD apply to face, wash rinse and dry once daily (may change to QOD if drying) 08/19/19 022 Inactive (%covered by insurance) #60ml refill 11 dx: acne benzoyl peroxide 10 % topical cleanser RxNorm: 872093 Apply 1 Application Topical QD apply to face, wash rinse and dry once daily (may change to QOD if drying) 08/19/19 022 Inactive (%covered by insurance) #60ml refill 11 dx: acne Lyrica 50 mg capsule RxNorm: 141972 Take 1 Capsule(s) Oral QAM every morning Take 1 capsule by mouth once daily 08/19/19 22 022 Inactive benzoyl peroxide 10 % topical cleanser RxNorm: 317509 Apply 1 Application Topical QD apply to face, wash rinse and dry once daily (may change to QOD if drying) 08/19/19 22 022 Inactive (%covered by insurance) #60ml refill 11 dx: acne Lyrica 100 mg capsule RxNorm: 233496 Take 1 Capsule(s) Oral QHS every night at bedtime Take 1 capsule by mouth once daily at bedtime 08/19/19 22 022 Inactive Lyrica 100 mg capsule RxNorm: 039670 Take 1 Capsule(s) Oral QHS every night at bedtime Take 1 capsule by mouth once daily at bedtime 08/16/19 22 022 Inactive Lyrica 50 mg capsule RxNorm: 713978 Take 1 Capsule(s) Oral QAM every morning Take 1 capsule by mouth once daily 08/16/19 22 022 Inactive Levemir FlexTouch U-100 Insulin 100 unit/mL (3 mL) subcutaneous pen RxNorm: 462068 Inject 86 Unit(s) Subcutaneous BID 08/05/19 22 022 Inactive d/c 83units BID Lyrica 100 mg capsule RxNorm: 727943 Take 1 Capsule(s) Oral QHS every night at bedtime Take 1 capsule by mouth once daily at bedtime 07/14/19 22 022 Inactive Lyrica 50 mg capsule RxNorm: 794897 Take 1 Capsule(s) Oral QAM every morning Take 1 capsule by mouth once daily 07/14/19 22 022 Inactive Levemir FlexTouch U-100 Insulin 100 unit/mL (3 mL) subcutaneous pen RxNorm: 977824 Inject 83 Unit(s) Subcutaneous BID 07/08/19 22 [...] insulin 5 times a day Dx:E11.42. 06/05/19 022 Inactive ok to substitute [...] 30 mg tablet,extended release 24 hr RxNorm: 863282 Take 1 Tablet(s) Oral QD 05/05/20 21 No Stop Date Active hydralazine 50 mg tablet RxNorm: 682265 Take 1 Tablet(s) Oral QID 05/05/20 21 Inactive venlafaxine ER 225 mg tablet,extended release 24 hr RxNorm: 423665 Take 1 Tablet(s) Oral QD 05/05/20 21 021 Inactive venlafaxine ER 225 mg tablet,extended release 24 hr RxNorm: 046486 Take 1 Tablet(s) Oral QD 05/05/20 21 022 Inactive hydralazine 50 mg tablet RxNorm: 801826 Take 1 Tablet(s) Oral QID 05/05/20 21 Inactive aspirin 81 mg tablet,delayed release RxNorm: 714438 Take 1 Tablet(s) Oral QD 03/31/20 Inactive Zetia 10 mg tablet RxNorm: 119429 Take 1 Tablet(s) Oral QD 03/31/20 21 Inactive Vitamin D2 1,250 mcg (50,000 unit) capsule RxNorm: 3285739 Take 1 Capsule(s) Oral QW once a week x 12 weeks 11/15/20 21 05/23/2 022 Inactive Vitamin D2 1,250 mcg (50,000 unit) capsule RxNorm: 4665854 Take 1 Capsule(s) Oral QW once a week 03/31/20 Inactive Zetia 10 mg tablet RxNorm: 819205 Take 1 Tablet(s) Oral QD 03/31/20 Inactive hydralazine 25 mg tablet RxNorm: 623579 Take 1 Tablet(s) Oral QID 03/31/20 021 Inactive hydralazine 25 mg tablet RxNorm: 677414 Take 1 Tablet(s) Oral QID 03/31/20 Inactive hydralazine 10 mg tablet RxNorm: 971391 Take 1 Tablet(s) Oral QID 03/03/20 021 Inactive cephalexin 500 mg tablet RxNorm: 770373 Take 1 Tablet(s) Oral QID 02/27/20 021 Inactive cephalexin 500 mg tablet RxNorm: 845030 Take 1 Tablet(s) Oral QID 02/27/20 021 Inactive lisinopril 40 mg tablet RxNorm: 153169 Take 1 Tablet(s) Oral QD 02/11/20 023 Inactive Eliquis 5 mg tablet RxNorm: 1140806 Take 1 Tablet(s) Oral BID 01/05/20 022 Inactive Eliquis 5 mg tablet RxNorm: 7514966 Take 2 Tablet(s) Oral QD 01/01/20 21 021 Inactive Lyrica 50 mg capsule RxNorm: 636138 Take 1 Capsule(s) Oral QAM every morning 12/24/19 21 021 Inactive Lyrica 100 mg capsule RxNorm: 846702 Take 1 Capsule(s) Oral QHS every night at bedtime 12/24/19 21 021 Inactive clotrimazole 1 % topical cream RxNorm: 821152 Apply to right foot and toes Topical BID 12/04/19 21 023 Inactive metoprolol succinate ER 200 mg tablet,extended release 24 hr RxNorm: 971675 Take 1 Tablet(s) Oral QD 12/04/19 21 023 Inactive ciprofloxacin 500 mg tablet RxNorm: 617309 Take 1 Tablet(s) Oral QD 11/30/19 021 Inactive DX ofloxacin otic drops Accu-Chek Guide test strips RxNorm: USE 1 TO CHECK GLUCOSE 4 TIMES DAILY AND NEEDED 11/15/19 21 023 Inactive Blood Glucose Test strips RxNorm: Use 1 Test Strip QID at PRN 11/05/19 21 023 Inactive E11.42 lisinopril 30 mg tablet RxNorm: 213848 Take 1 Tablet(s) Oral QD 10/30/19 021 Inactive lisinopril 20 mg tablet RxNorm: 891747 Take 1 Tablet(s) Oral QD 10/23/19 021 Inactive lisinopril 20 mg tablet RxNorm: 788673 Take 1 Tablet(s) Oral QD 10/23/19 021 Inactive lisinopril 10 mg tablet RxNorm: 902171 Take 1 Tablet(s) Oral QD 10/02/19 021 Inactive icosapent ethyl 1 gram capsule RxNorm: 2082751 Take 2 Capsule(s) (2 gm) Oral BID with meals 09/12/19 022 Inactive Okay to dispense one 2gm tab if you have that available. icosapent ethyl 1 gram capsule RxNorm: 9266266 Take 2 Capsule(s) Oral BID 09/12/19 021 Inactive Okay to dispense one 2gm tab if you have that available. amlodipine 10 mg tablet RxNorm: 426493 Take 1 Tablet(s) Oral QD 09/04/19 022 Inactive aspirin 81 mg tablet,delayed release RxNorm: 452362 Take 1 Tablet(s) Oral QD 09/04/19 021 Inactive Levemir FlexTouch U-100 Insulin 100 unit/mL (3 mL) subcutaneous pen RxNorm: 601864 Inject 150 Unit(s) Subcutaneous BID 09/04/19 21 022 Inactive venlafaxine ER 150 mg tablet,extended release 24 hr RxNorm: 616500 Take 1 Tablet(s) Oral QD 09/04/19 021 Inactive clotrimazole-betame thasone 1 %-0.05 % topical cream RxNorm: 056189 Apply to rash on red area on left abdomen/chest Topical BID 08/10/19 21 Inactive amlodipine 5 mg tablet RxNorm: 004432 Take 1 Tablet(s) Oral QD 07/31/19 Inactive cephalexin 500 mg tablet RxNorm: 190021 Take 1 Tablet(s) Oral BID BID - Twice Daily 07/31/19 021 Inactive Start 08/01/20 pantoprazole 40 mg tablet,delayed release RxNorm: 232137 Take 1 Tablet(s) Oral QAM every morning 07/08/19 022 Inactive senna 8.6 mg tablet RxNorm: 410473 Take 1 Tablet(s) Oral QD 07/08/19 022 Inactive pravastatin 80 mg tablet RxNorm: 518098 Take 1 Tablet(s) Oral QHS every night at bedtime 07/08/19 022 Inactive carbamazepine 200 mg tablet RxNorm: 055671 Take 1 Tablet(s) Oral BID 07/08/19 022 Inactive torsemide 20 mg tablet RxNorm: 678503 Take 1 Tablet(s) Oral QD 07/08/19 023 Inactive clopidogrel 75 mg tablet RxNorm: 015750 Take 1 Tablet(s) Oral QD 07/08/19 021 Inactive Blood Glucose Test strips RxNorm: Use 1 Test Strip QID at PRN 07/08/19 021 Inactive E11.42 Novolog Flexpen U-100 Insulin aspart 100 unit/mL (3 mL) subcutaneous RxNorm: 0178865 Administer per sliding scale Milliliter(s) Subcutaneous TID 151-200: 10 u; 201-250: 20 u; 251-300: 30 u; 301-350: 40 u; 351-400: 50 u. 07/08/19 21 022 Inactive lisinopril 5 mg tablet RxNorm: 631644 Take 1 Tablet(s) Oral QD 07/08/19 021 Inactive Novolog Flexpen U-100 Insulin aspart 100 unit/mL (3 mL) subcutaneous RxNorm: 5390017 Inject 85 Unit(s) Subcutaneous TID 07/08/19 022 Inactive clotrimazole 1 % topical cream RxNorm: 950643 Apply to bilateral groin areas Topical BID 07/08/19 022 Inactive metoprolol succinate ER 200 mg tablet,extended release 24 hr RxNorm: 175064 Take 1 Tablet(s) Oral QD 07/08/19 021 Inactive Vitamin D3 25 mcg (1,000 unit) tablet RxNorm: 292710 Take 1 Tablet(s) Oral QD 07/08/19 021 Inactive isosorbide dinitrate 30 mg tablet RxNorm: 094195 Take 1 Tablet(s) Oral QD 07/08/19 021 Inactive Levemir FlexTouch U-100 Insulin 100 unit/mL (3 mL) subcutaneous pen RxNorm: 143470 Inject 140 Unit(s) Subcutaneous BID 07/08/19 021 Inactive venlafaxine 75 mg tablet RxNorm: 031235 Take 1 Tablet(s) Oral QD 07/08/19 021 Inactive acetaminophen 500 mg tablet RxNorm: 263461 Take 1 Tablet(s) Oral TID as needed for headache 06/18/19 021 Inactive acetaminophen 500 mg tablet RxNorm: 855629 Take 1 Tablet(s) Oral TID as needed for headache 06/18/19 021 Inactive Lyrica 100 mg capsule RxNorm: 342783 Take 1 Capsule(s) Oral QHS every night at bedtime 06/11/19 021 Inactive Lyrica 50 mg capsule RxNorm: 423353 Take 1 Capsule(s) Oral QAM every morning 06/10/19 021 Inactive hydrocortisone 2.5 % topical cream RxNorm: 224424 Apply to bilateral groin creases Topical BID 05/15/20 20 021 Inactive clotrimazole 1 % topical cream RxNorm: 707835 Apply to bilateral groin areas Topical BID 05/15/20 20 Inactive Lyrica 50 mg capsule RxNorm: 605097 Take 1 Capsule(s) Oral QAM every morning 05/14/20 20 Inactive Lyrica 100 mg capsule RxNorm: 522911 Take 1 Capsule(s) Oral QHS every night [...] Inactive Nystop 100,000 unit/gram topical powder RxNorm: 596157 Apply to abd folds, under breasts and L side of groin Topical BID x 14 days, then BID PRN 04/08/20 20 021 Inactive dx: yeast dermatitis Lyrica 100 mg capsule RxNorm: 835895 Take 1 Capsule(s) Oral QHS every night at bedtime 03/13/20 20 Inactive Lyrica 50 mg capsule RxNorm: 730624 Take 1 Capsule(s) Oral QAM every morning 03/13/20 20 Inactive ketoconazole 2 % shampoo RxNorm: 451507 Apply Topical two times a week with showers 03/11/20 20 Inactive cholecalciferol (vitamin D3) 50 mcg (2,000 unit) tablet RxNorm: 934998 Take 1 Tablet(s) Oral QD 03/11/20 20 Inactive Zetia 10 mg tablet RxNorm: 059833 Take 1 Tablet(s) Oral QD 03/07/20 20 Inactive Zetia 10 mg tablet RxNorm: 046278 Take 1 Tablet(s) Oral QD 03/07/20 20 Inactive Lyrica 50 mg capsule RxNorm: 698080 Take 1 Capsule(s) Oral QAM every morning 02/15/20 20 Inactive Lyrica 100 mg capsule RxNorm: 923381 Take 1 Capsule(s) Oral QHS every night at bedtime 02/15/20 20 Inactive Lyrica 100 mg capsule RxNorm: 825598 Take 1 Capsule(s) Oral QHS every night at bedtime 02/15/20 20 Inactive Lyrica 50 mg capsule RxNorm: 237055 Take 1 Capsule(s) Oral QAM every morning 02/15/20 Inactive venlafaxine ER 75 mg capsule,extended release 24 hr RxNorm: 627558 Take 3 Capsule(s) Oral QD 06/12/2021 Activepolyethylene glycol 3350 17 gram/dose oral powderRxNorm: 619755Lrdz 17=1 capful Gram(s) Oral BID as needed mix with 4-8oz of kvrsci1206/12/2021ctive Levemir FlexTouch U-100 Insulin 100 unit/mL (3 mL) subcutaneous penRxNorm: 931325Zcfqyk 80 Unit(s) Subcutaneous BID07/14//Inactiveloperamide 2 mg capsuleRxNorm: 120328Exfn 1 Capsule(s) Oral QID as xxxwcd2306/12/2021ctive Novolog Flexpen U-100 Insulin aspart 100 unit/mL (3 mL) subcutaneousRxNorm: 1100626Lcrnen 30 Unit(s) Subcutaneous TID with meals/Inactive Medication [...] [facility] WPtel: [address], [address] [id number] USReferralRecords Albxntyy07/08/2023Referral: [facility] WPtel: [address] [id number] ZNEbfjmtziVhcpyfyvu91/12/2022Referral: General CardiologyReferralCompleted 1Referral: General PsychologistReferralClosed Instructions Comment Date Leonid is a Male being seen living at [facility]. Initial [facility] visit 01/2020. PMHx including DMII, CAD w/ 5 stents, Depression, Seizure Disorder and CKD stage 3. He moved into [facility] in 12/2019 but after a hospitalization 05/2021 he moved to the [facility] to have closer nursing attention. Sister Jyotsna involved in his care cell# [phone] Guardian: Don (tapan met in person 09/01/21), now has Lexii (same group as don)Lab Schedule: * 10/06/2022
--- OUTSIDE RECORDS SUMMARY | 2022-06-17 18:00 | XMS_ITS | CCD ---
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 Special Certificate Dictator Name Role Phone Tapan Shirley PA-C Primary Care Provider Unavailabl e Tapan Shirley PA-C Chronic Care Management Unavaila ble Summary Purpose DataExchange Insurance Providers Payer name Policy type / Coverage type Covered constitution party ID Effective Begin Date Effective End Date [place] [id number] Unknown Unknown [place] [id number] Unknown Unknown Family history Sister Brittany Suggs [...] Correction 09/03/[address]: 7667536 Non-Smoker / No History of Smoking 09/02/[address]: [id number] No Alcohol Consum ption 09/02/2020 Allergies, Adverse Reactions, Alerts Substance Reaction Codes Entered Date Inactivated Date Status LISINOPRIL RxNorm: 2199215No Inactive DateActiveMetformin YLtEohttpp98/28/2020No Inactive DateActive Problems Condition Codes Effective Dates Condition St atus Candidiasis, intertrigo ICD-10: B37.2 ICD-9: 112.301/ctiveHyperlipidemia associated with type 2 diabetes mellitusICD-10: E11.69 ICD-9: 250.8001ctiveOnychogryposisICD-10: L60.2 ICD-9: 703.801ctiveStage 2 chronic 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ICD-10: E11.22 ICD-9: 250.4001ctiveType 2 diabetes mellitus with diabetic polyneuropathy, with long-term current use of insulinICD-10: E11.42 ICD-9: 250.6001/3ActiveHypertensive heart disease without heart failure ICD-10: I11.9 ICD-9: 402.9012/2ActiveHigh risk medication useICD-10: Z79.899 ICD-9: V58.6912/ctiveMajor depression, recurrentICD-10: F33.9 ICD-9: 296.3012/ctiveVitamin D deficiencyICD-10: E55.9 ICD-9: 268.912/ctiveCoronary artery disease involving quileute coronary artery of quileute heart, angina presence unspecifiedICD-10: I25.10 ICD-9: 414.0111/ctiveShortness of breathICD-10: R06.02 ICD-9: 786.0511/ctiveSeizure disorderICD-10: G40.909 ICD-9: 345.9011/ctiveCellulitisICD-10: L03.90 ICD-9: 682.910/ctiveRecurrent major depressive disorder, in partial remissionICD-10: F33.41 ICD-9: 296.3510/ctiveReducible umbilical herniaICD-10: K42.9 ICD-9: 553.110/ctiveBMI 60.0-69.9, adultICD-10: Z68.44 ICD-9: V85.4410/ctiveInappropriate sexual behaviorICD-10: Z72.89 ICD-9: 312.8910/ctiveHx of deep venous thrombosisICD-10: Z86.718 ICD-9: V12.5109/ctiveHypercoagulable stateICD-10: D68.59 ICD-9: 289.8109/ctiveParaparesis of both lower limbsICD-10: G82.20 ICD-9: 344.109/ctivePVD (peripheral vascular disease)ICD-10: I73.9 ICD-9: 443.909/ctiveDepressionICD-10: F32.9 ICD-9: 59850/2ResolvedDVT (deep venous thrombosis)ICD-10: I82.409 ICD-9: 453.4009esolvedEncounter for immunizationICD-10: Z23 ICD-9: V03.89092ResolvedLong term (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 insulinICD-10: Z79.4 02/10/2022esolvedMuscular painICD-10: M79.10 ICD-9: 729.109esolvedPain of right heelICD-10: M79.671 ICD-9: 729.509esolvedDandruff in adultICD-10: L21.0 ICD-9: 690.1802ActiveHypertension associated with diabetesICD-10: E11.59 ICD-9: 250.8008esolvedHistory of anemia due to CKDICD-10: N18.9 ICD-9: 585.907/ctiveSecondary hypertensionICD-10: I15.9 ICD-9: 405.9907/2ActiveStage 2 chronic kidney diseaseICD-10: N18.2 ICD-9: 585.207/2ActiveGout due to renal impairmentICD-10: M10.30 ICD-9: 274.1006/ctivePreventative health careICD-10: Z00.00 ICD-9: V70.006/2ActiveLower extremity edemaICD-10: R60.0 ICD-9: 782.305/2ActiveAmputated toe of right footICD-10: S98.131A ICD-9: 895.004/2ActiveLearning disabilityICD-10: F81.9 ICD-9: 315.212/1ActiveSkin tagICD-10: L91.8 ICD-9: 701.911/1ActiveCallus of heelICD-10: L84 ICD-9: 41845/1ActiveImpacted cerumen, left earICD-10: H61.22 ICD-9: 380.408/1ActiveContact with and (suspected) exposure to covid-19 ICD-10: Z20.822 ICD-9: V01.7908/1ResolvedOther infective acute otitis externa of left ear ICD-10: H60.392 ICD-9: 380.1008/1ResolvedScrotal skin lesionICD-10: N50.9 ICD-9: 608.908/esolvedTinea pedisICD-10: B35.3 ICD-9: 110.408/1ResolvedAnemia due to stage 3b chronic kidney diseaseICD- 10: N18.32 ICD-9: 285.21051ResolvedChronic kidney disease, stage 3 unspecifiedICD- 10: N18.3004/esolvedContact with and (suspected) exposure to other viral communicable diseasesICD-10: Z20.828 ICD-9: V01.7902/esolvedHyperhidrosis of palmsICD-10: L74.512 ICD-9: 705.9937YzfhooJulavwveJfimyzu67/28/2020ActiveDiabetes mellitus Type 5Awufdzw71/28/2020ActiveAnemia in chronic kidney diseaseICD-10: D63.1 02/12/2020ResolvedHyperlipidemia, unspecifiedICD-10: E78.Resolved Medications Medication Codes Instructions Start Date Stop Date Status Fill Instructions Diflucan 150 mg tablet RxNorm: 502409 Take 1 Tablet(s) Oral QD repeat on day 3 and 6 06/30/19 23 023 Inactive Lyrica 150 mg capsule RxNorm: 861278 Take 1 Capsule(s) Oral QHS every night at bedtime 06/18/19 23 023 Inactive d/c 100mg dose aripiprazole 15 mg tablet RxNorm: 491973 / TAB (7.5MG) ORALLY DAILY (DX:MAJOR DEPRESSIVE DISORDER) 06/05/19 23 023 Inactive pregabalin 100 mg capsule RxNorm: 156220 1 Capsule(s) Oral QAM every morning 06/02/19 023 Inactive Banophen 50 mg capsule RxNorm: 4823707 Take 1 Capsule(s) Oral Q6H every 6 hours as needed 05/19/19 No Stop Date Active Novolog Flexpen U-100 Insulin aspart 100 unit/mL (3 mL) subcutaneous RxNorm: 0016857 Inject 10 Unit(s) Subcutaneous QHS every night at bedtime with nighttime snack 04/08/20 022 Inactive Novolog Flexpen U-100 Insulin aspart 100 unit/mL (3 mL) subcutaneous RxNorm: 8510434 Inject 42 Unit(s) Subcutaneous TID in addition to sliding scale 04/08/20 Inactive d/c 36u albuterol sulfate HFA 90 mcg/actuation aerosol inhaler RxNorm: 5439793 Take 2 Puff(s) Inhalation Q4H every four hours as needed as needed for SOB, cough, or wheezing 04/07/20 030 Active Banophen 50 mg capsule RxNorm: 2604614 Take 1 Capsule(s) Oral Q6H every 6 hours as needed 04/06/20 023 Inactive diphenhydramine 50 mg tablet RxNorm: 4277733 Take 1 Tablet(s) Oral Q6H every 6 hours as needed 04/06/20 022 Inactive diphenhydramine 50 mg tablet RxNorm: 4556733 1 Tablet(s) Oral Q6H every 6 hours as needed 04/06/20 022 Inactive Abilify 15 mg tablet RxNorm: 889660 1/2 Tablet(s) Oral QD 03/10/20 023 Inactive Shingrix (PF) 50 mcg/0.5 mL intramuscular suspension, kit RxNorm: 3190261 Administer 1/2 Milliliter(s) Intramuscular QD one time shingrix step 2 ( step 1 given 11/04/21) WITH needle - Nursing please administer upon arrival and once administered 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, 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, 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, and lot# so we can update [facility]IC 02/18/20 22 022 Inactive dispense with needle Shingrix (PF) 50 mcg/0.5 mL intramuscular suspension, kit RxNorm: 2822896 Administer 1/2 Milliliter(s) Intramuscular QD one time shingrix step 2 ( step 1 given 11/04/21) WITH needle - Nursing please administer upon arrival and once administered 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, 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, 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, and lot# so we can update [facility]IC 02/18/20 22 022 Inactive dispense with needle acetaminophen 500 mg tablet RxNorm: 177295 Take 1 Tablet(s) Oral TID 01/08/20 22 023 Active d/c PRN order polyethylene glycol 3350 17 gram/dose oral powder RxNorm: 195023 Take 17=1 capful Gram(s) Oral QD mix with 4-8oz of liquid 01/08/20 22 023 Active take this in addition to BID prn order Lyrica 100 mg capsule RxNorm: 265482 Take 1 Capsule(s) Oral QAM every morning 01/08/20 22 022 Inactive d/c 50mg dose Lyrica 150 mg capsule RxNorm: 556219 Take 1 Capsule(s) Oral QHS every night at bedtime 01/08/20 22 023 Inactive d/c 100mg dose Abilify 5 mg tablet RxNorm: 002900 Take 1 Tablet(s) Oral QD take 1 tab po QD #30 refill 5 dx: MDD 12/12/19 22 022 Inactive Abilify 5 mg tablet RxNorm: 079452 Take 1 Tablet(s) Oral QD take 1 tab po QD #30 refill 5 dx: MDD 12/12/19 22 022 Inactive chlorthalidone 25 mg tablet RxNorm: 830811 Take 1 Tablet(s) Oral QAM every morning 12/10/19 22 023 Active Novolog Flexpen U-100 Insulin aspart 100 unit/mL (3 mL) subcutaneous RxNorm: 5762675 Inject 42 Unit(s) Subcutaneous TID in addition to sliding scale 12/10/19 22 022 Inactive d/c 36u pregabalin 50 mg capsule RxNorm: 434125 Take 1 Capsule(s) Oral QAM every morning 11/12/19 22 022 Inactive tetanus-diphtheria toxoids-Td 2 Lf unit-2 Lf unit/0.5 mL IM suspension RxNorm: 139 Take 0.5 Miscellaneous Intramuscular 11/12/19 22 022 Inactive need tdap - nursing to administer upon arrival pregabalin 50 mg capsule RxNorm: 824170 Take 1 Capsule(s) Oral QAM every morning 10/16/19 22 022 Inactive pregabalin 50 mg capsule RxNorm: 169076 Take 1 Capsule(s) Oral QAM every morning 10/16/19 22 022 Inactive pregabalin 50 mg capsule RxNorm: 392568 1 Capsule(s) Oral QAM every morning 10/15/19 22 022 Inactive Shingrix (PF) 50 mcg/0.5 mL intramuscular suspension, kit RxNorm: 2211903 Administer 1/2 Milliliter(s) Intramuscular one time Nursing please administer upon arrival and once administered 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 10/09/19 22 022 Inactive shingrix step 1 cholecalciferol (vitamin D3) 1,250 mcg (50,000 unit) capsule RxNorm: 106817 Take 1 Capsule(s) Oral QW once a [...] Intramuscular once ADMINISTER PER CDC GUIDELINES 10/08/19 Active Tdap dx: tetanus prophylaxis, please dispense syringe and needle Novolog Flexpen U-100 Insulin aspart 100 unit/mL (3 mL) subcutaneous RxNorm: 0335112 Inject 10 Unit(s) Subcutaneous QHS every night at bedtime with nighttime snack 10/08/19 22 Inactive Shingrix (PF) 50 mcg/0.5 mL intramuscular suspension, kit RxNorm: 7905251 ADMINISTER 2-DOSE SERIES PER CDC GUIDELINES 10/08/19 22 Active Shingrix (PF) 50 mcg/0.5 mL intramuscular suspension, kit RxNorm: 0761587 ADMINISTER 2-DOSE SERIES PER CDC GUIDELINES 10/08/19 Inactive Novolog Flexpen U-100 Insulin aspart 100 unit/mL (3 mL) subcutaneous RxNorm: 9118027 Inject 36 Unit(s) Subcutaneous TID in addition to sliding scale 10/08/19 Inactive Novofine Autocover 30 gauge x 1/3 needle RxNorm: Use 1 Miscellaneous UD as directed Use 1 needle as directed to administer insulin 5 times a day Dx:E11.42. 10/03/19 Inactive ok to substitute with any covered alternative pen needle benzoyl peroxide 10 % topical cleanser RxNorm: 245723 Apply 1 Application Topical QD apply to face, wash rinse and dry once daily (may change to QOD if drying) 08/19/19 022 Inactive (%covered by insurance) #60ml refill 11 dx: acne benzoyl peroxide 10 % topical cleanser RxNorm: 342373 Apply 1 Application Topical QD apply to face, wash rinse and dry once daily (may change to QOD if drying) 08/19/19 22 022 Inactive (%covered by insurance) #60ml refill 11 dx: acne benzoyl peroxide 10 % topical cleanser RxNorm: 149352 Apply 1 Application Topical QD apply to face, wash rinse and dry once daily (may change to QOD if drying) 08/19/19 22 022 Inactive (%covered by insurance) #60ml refill 11 dx: acne Lyrica 50 mg capsule RxNorm: 408165 Take 1 Capsule(s) Oral QAM every morning Take 1 capsule by mouth once daily 08/19/19 22 022 Inactive benzoyl peroxide 10 % topical cleanser RxNorm: 110305 Apply 1 Application Topical QD apply to face, wash rinse and dry once daily (may change to QOD if drying) 08/19/19 22 Inactive (%covered by insurance) #60ml refill 11 dx: acne Lyrica 100 mg capsule RxNorm: 370515 Take 1 Capsule(s) Oral QHS every night at bedtime Take 1 capsule by mouth once daily at bedtime 08/19/19 022 Inactive Lyrica 100 mg capsule RxNorm: 569130 Take 1 Capsule(s) Oral QHS every night at bedtime Take 1 capsule by mouth once daily at bedtime 08/16/19 22 022 Inactive Lyrica 50 mg capsule RxNorm: 375270 Take 1 Capsule(s) Oral QAM every morning Take 1 capsule by mouth once daily 08/16/19 22 022 Inactive Levemir FlexTouch U-100 Insulin 100 unit/mL (3 mL) subcutaneous pen RxNorm: 906448 Inject 86 Unit(s) Subcutaneous BID 08/05/19 22 022 Inactive d/c 83units BID Lyrica 100 mg capsule RxNorm: 150063 Take 1 Capsule(s) Oral QHS every night at bedtime Take 1 capsule by mouth once daily at bedtime 07/14/19 22 022 Inactive Lyrica 50 mg capsule RxNorm: 550294 Take 1 Capsule(s) Oral QAM every morning Take 1 capsule by mouth once daily 07/14/19 22 022 Inactive Levemir FlexTouch U-100 Insulin 100 unit/mL (3 mL) subcutaneous pen RxNorm: 935805 Inject 83 Unit(s) Subcutaneous BID 07/08/19 22 [...] insulin 5 times a day Dx:E11. 06/05/19 Inactive ok to substitute with any covered alternative pen needle Accu-Chek Guide test strips RxNorm: Use 1 Test Strip QID Use 1 test strip to monitor blood glucose 4 times daily and as needed. Dx:E11. 06/05/19 Inactive ok to substitute with any covered alternative test strip Accu-Chek Guide test strips RxNorm: Use 1 Test Strip QID Use 1 test strip to monitor blood glucose 4 times daily and as needed. Dx:E1142. 06/05/19 022 Inactive ok to substitute with any covered alternative test strip isosorbide mononitrate ER 30 mg tablet,extended release 24 hr RxNorm: 369206 Take 1 Tablet(s) Oral QD 05/05/20 No Stop Date Active hydralazine 50 mg tablet RxNorm: 776131 Take 1 Tablet(s) Oral QID 05/05/20 21 022 Inactive venlafaxine ER 225 mg tablet,extended release 24 hr RxNorm: 184012 Take 1 Tablet(s) Oral QD 05/05/20 021 Inactive venlafaxine ER 225 mg tablet,extended release 24 hr RxNorm: 989052 Take 1 Tablet(s) Oral QD 05/05/20 21 022 Inactive hydralazine 50 mg tablet RxNorm: 917448 Take 1 Tablet(s) Oral QID 05/05/20 Inactive aspirin 81 mg tablet,delayed release RxNorm: 896292 Take 1 Tablet(s) Oral QD 03/31/20 Inactive Zetia 10 mg tablet RxNorm: 955521 Take 1 Tablet(s) Oral QD 03/31/20 Inactive Vitamin D2 1,250 mcg (50,000 unit) capsule RxNorm: 9139087 Take 1 Capsule(s) Oral QW once a week x 12 weeks 03/31/20 022 Inactive Vitamin D2 1,250 mcg (50,000 unit) capsule RxNorm: 6514386 Take 1 Capsule(s) Oral QW once a week 03/31/20 Inactive Zetia 10 mg tablet RxNorm: 931252 Take 1 Tablet(s) Oral QD 03/31/20 Inactive hydralazine 25 mg tablet RxNorm: 422405 Take 1 Tablet(s) Oral QID 03/31/20 021 Inactive hydralazine 25 mg tablet RxNorm: 642294 Take 1 Tablet(s) Oral QID 03/31/20 021 Inactive hydralazine 10 mg tablet RxNorm: 146289 Take 1 Tablet(s) Oral QID 03/03/20 021 Inactive cephalexin 500 mg tablet RxNorm: 307265 Take 1 Tablet(s) Oral QID 02/27/20 021 Inactive cephalexin 500 mg tablet RxNorm: 128241 Take 1 Tablet(s) Oral QID 02/27/20 021 Inactive lisinopril 40 mg tablet RxNorm: 680597 Take 1 Tablet(s) Oral QD 02/11/20 21 023 Inactive Eliquis 5 mg tablet RxNorm: 7690296 Take 1 Tablet(s) Oral BID 01/05/20 21 022 Inactive Eliquis 5 mg tablet RxNorm: 5226355 Take 2 Tablet(s) Oral QD 01/01/20 21 021 Inactive Lyrica 50 mg capsule RxNorm: 150780 Take 1 Capsule(s) Oral QAM every morning 12/24/19 21 021 Inactive Lyrica 100 mg capsule RxNorm: 704969 Take 1 Capsule(s) Oral QHS every night at bedtime 12/24/19 021 Inactive clotrimazole 1 % topical cream RxNorm: 043769 Apply to right foot and toes Topical BID 12/04/19 21 023 Inactive metoprolol succinate ER 200 mg tablet,extended release 24 hr RxNorm: 435165 Take 1 Tablet(s) Oral QD 12/04/19 21 023 Inactive ciprofloxacin 500 mg tablet RxNorm: 749166 Take 1 Tablet(s) Oral QD 11/30/19 21 021 Inactive DX ofloxacin otic drops Accu-Chek Guide test strips RxNorm: USE 1 TO CHECK GLUCOSE 4 TIMES DAILY AND NEEDED 11/15/19 023 Inactive Blood Glucose Test strips RxNorm: Use 1 Test Strip QID at PRN 11/05/19 21 023 Inactive E11.42 lisinopril 30 mg tablet RxNorm: 293724 Take 1 Tablet(s) Oral QD 10/30/19 021 Inactive lisinopril 20 mg tablet RxNorm: 232930 Take 1 Tablet(s) Oral QD 10/23/19 21 021 Inactive lisinopril 20 mg tablet RxNorm: 618744 Take 1 Tablet(s) Oral QD 10/23/19 021 Inactive lisinopril 10 mg tablet RxNorm: 233059 Take 1 Tablet(s) Oral QD 10/02/19 21 021 Inactive icosapent ethyl 1 gram capsule RxNorm: 3968192 Take 2 Capsule(s) (2 gm) Oral BID with meals 09/12/19 21 022 Inactive Okay to dispense one 2gm tab if you have that available. icosapent ethyl 1 gram capsule RxNorm: 1410304 Take 2 Capsule(s) Oral BID 09/12/19 21 021 Inactive Okay to dispense one 2gm tab if you have that available. amlodipine 10 mg tablet RxNorm: 955127 Take 1 Tablet(s) Oral QD 09/04/19 022 Inactive aspirin 81 mg tablet,delayed release RxNorm: 502601 Take 1 Tablet(s) Oral QD 09/04/19 Inactive Levemir FlexTouch U-100 Insulin 100 unit/mL (3 mL) subcutaneous pen RxNorm: 423023 Inject 150 Unit(s) Subcutaneous BID 09/04/19 022 Inactive venlafaxine ER 150 mg tablet,extended release 24 hr RxNorm: 264026 Take 1 Tablet(s) Oral QD 09/04/19 021 Inactive clotrimazole-betame thasone 1 %-0.05 % topical cream RxNorm: 371537 Apply to rash on red area on left abdomen/chest Topical BID 08/10/19 21 Inactive amlodipine 5 mg tablet RxNorm: 916687 Take 1 Tablet(s) Oral QD 07/31/19 Inactive cephalexin 500 mg tablet RxNorm: 493038 Take 1 Tablet(s) Oral BID BID - Twice Daily 07/31/19 021 Inactive Start 08/01/20 pantoprazole 40 mg tablet,delayed release RxNorm: 643979 Take 1 Tablet(s) Oral QAM every morning 07/08/19 022 Inactive senna 8.6 mg tablet RxNorm: 740100 Take 1 Tablet(s) Oral QD 07/08/19 022 Inactive pravastatin 80 mg tablet RxNorm: 915172 Take 1 Tablet(s) Oral QHS every night at bedtime 07/08/19 022 Inactive carbamazepine 200 mg tablet RxNorm: 172999 Take 1 Tablet(s) Oral BID 07/08/19 022 Inactive torsemide 20 mg tablet RxNorm: 250825 Take 1 Tablet(s) Oral QD 07/08/19 21 023 Inactive clopidogrel 75 mg tablet RxNorm: 367877 Take 1 Tablet(s) Oral QD 07/08/19 021 Inactive Blood Glucose Test strips RxNorm: Use 1 Test Strip QID at PRN 07/08/19 21 021 Inactive E11.42 Novolog Flexpen U-100 Insulin aspart 100 unit/mL (3 mL) subcutaneous RxNorm: 2382845 Administer per sliding scale Milliliter(s) Subcutaneous TID 151-200: 10 u; 201-250: 20 u; 251-300: 30 u; 301-350: 40 u; 351-400: 50 u. 07/08/19 022 Inactive lisinopril 5 mg tablet RxNorm: 396950 Take 1 Tablet(s) Oral QD 07/08/19 21 021 Inactive Novolog Flexpen U-100 Insulin aspart 100 unit/mL (3 mL) subcutaneous RxNorm: 2327315 Inject 85 Unit(s) Subcutaneous TID 07/08/19 Inactive clotrimazole 1 % topical cream RxNorm: 676915 Apply to bilateral groin areas Topical BID 07/08/19 21 Inactive metoprolol succinate ER 200 mg tablet,extended release 24 hr RxNorm: 301237 Take 1 Tablet(s) Oral QD 07/08/19 21 021 Inactive Vitamin D3 25 mcg (1,000 unit) tablet RxNorm: 643019 Take 1 Tablet(s) Oral QD 07/08/19 021 Inactive isosorbide dinitrate 30 mg tablet RxNorm: 605140 Take 1 Tablet(s) Oral QD 07/08/19 21 021 Inactive Levemir FlexTouch U-100 Insulin 100 unit/mL (3 mL) subcutaneous pen RxNorm: 615658 Inject 140 Unit(s) Subcutaneous BID 07/08/19 021 Inactive venlafaxine 75 mg tablet RxNorm: 365743 Take 1 Tablet(s) Oral QD 07/08/19 Inactive acetaminophen 500 mg tablet RxNorm: 529672 Take 1 Tablet(s) Oral TID as needed for headache 06/18/19 21 Inactive acetaminophen 500 mg tablet RxNorm: 258531 Take 1 Tablet(s) Oral TID as needed for headache 06/18/19 21 021 Inactive Lyrica 100 mg capsule RxNorm: 731057 Take 1 Capsule(s) Oral QHS every night at bedtime 06/11/19 21 021 Inactive Lyrica 50 mg capsule RxNorm: 581146 Take 1 Capsule(s) Oral QAM every morning 06/10/19 21 021 Inactive hydrocortisone 2.5 % topical cream RxNorm: 339117 Apply to bilateral groin creases Topical BID 05/15/20 20 021 Inactive clotrimazole 1 % topical cream RxNorm: 512586 Apply to bilateral groin areas Topical BID 05/15/20 20 021 Inactive Lyrica 50 mg capsule RxNorm: 682724 Take 1 Capsule(s) Oral QAM every morning 05/14/20 20 Inactive Lyrica 100 mg capsule RxNorm: 275769 Take 1 Capsule(s) Oral QHS every night [...] Inactive Nystop 100,000 unit/gram topical powder RxNorm: 546213 Apply to abd folds, under breasts and L side of groin Topical BID x 14 days, then BID PRN 04/08/20 20 021 Inactive dx: yeast dermatitis Lyrica 100 mg capsule RxNorm: 281348 Take 1 Capsule(s) Oral QHS every night at bedtime 03/13/20 20 020 Inactive Lyrica 50 mg capsule RxNorm: 364659 Take 1 Capsule(s) Oral QAM every morning 03/13/20 20 Inactive ketoconazole 2 % shampoo RxNorm: 513689 Apply Topical two times a week with showers 03/11/20 20 Inactive cholecalciferol (vitamin D3) 50 mcg (2,000 unit) tablet RxNorm: 001721 Take 1 Tablet(s) Oral QD 03/11/20 20 Inactive Zetia 10 mg tablet RxNorm: 630625 Take 1 Tablet(s) Oral QD 03/07/20 20 Inactive Zetia 10 mg tablet RxNorm: 187484 Take 1 Tablet(s) Oral QD 03/07/20 20 Inactive Lyrica 50 mg capsule RxNorm: 698918 Take 1 Capsule(s) Oral QAM every morning 02/15/20 20 Inactive Lyrica 100 mg capsule RxNorm: 395314 Take 1 Capsule(s) Oral QHS every night at bedtime 02/15/20 20 Inactive Lyrica 100 mg capsule RxNorm: 985984 Take 1 Capsule(s) Oral QHS every night at bedtime 02/15/20 20 Inactive Lyrica 50 mg capsule RxNorm: 836712 Take 1 Capsule(s) Oral QAM every morning 02/15/20 20 Inactive venlafaxine ER 75 mg capsule,extended release 24 hr RxNorm: 622883 Take 3 Capsule(s) Oral QD 06/12/2021 Activepolyethylene glycol 3350 17 gram/dose oral powderRxNorm: 462838Zmbi 17=1 capful Gram(s) Oral BID as needed mix with 4-8oz of loiypw9106/12/2021ctive Levemir FlexTouch U-100 Insulin 100 unit/mL (3 mL) subcutaneous penRxNorm: 029966Soooys 80 Unit(s) Subcutaneous BID/Inactiveloperamide 2 mg capsuleRxNorm: 056578Agew 1 Capsule(s) Oral QID as wuymvq56/27/2022Active Novolog Flexpen U-100 Insulin aspart 100 unit/mL (3 mL) subcutaneousRxNorm: 2992726Fprlvf 30 Unit(s) Subcutaneous TID with meals/Inactive Medication [...] Codes Status Date Referral: [facility] WPtel: [address], [address] [id number] USReferralRecords Isicdxze92/08/2023Referral: [facility] WPtel: [address] [id number] ULHvmfhcybVdfyobgbk26/12/2022Referral: General CardiologyReferralCompleted 1Referral: General PsychologistReferralClosed Instructions Comment Date Leonid is a Male being seen living at [facility]. Initial [facility] visit 01/2020. PMHx including DMII, CAD w/ 5 stents, Depression, Seizure Disorder and CKD stage 3. He moved into [facility] in 12/2019 but after a hospitalization 05/2021 he moved to the [facility] to have closer nursing attention. Sister Jyotsna involved in his care cell# [phone] Guardian: Don (tapan met in person 09/01/21), now has Lexii (same group as don)Lab Schedule: * 10/06/2022
--- OUTSIDE RECORDS SUMMARY | 2022-06-18 18:00 | XMS_ITS | CCD ---
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 Water Commissioner Name Role Phone Tapan Shirley PA-C Primary Care Provider Unavailabl e Tapan Shirley PA-C Chronic Care Management Unavaila ble Summary Purpose DataExchange Insurance Providers Payer name Policy type / Coverage type Covered alliance party ID Effective Begin Date Effective End Date [place] B [id number] [place] B [id number] Unknown Unknown Family history Sister Brittany Suggs Diagnosis Age At Onset No Family Disease Entered N/A Runs in the family Diagnosis Age At Onset No Known Diseases N/A Sister Blanka Mcduffie Diagnosis Age At Onset No Family Disease Entered N/A Social History Social History Element Codes Description Effec tive Dates Marital status Unknown Single 10/07/2021 Living arrangements Unknown Retirement 09/03/[address]: 4472584 Non-Smoker / No History of Smoking 09/02/[address]: 045160886 No Alcohol Consum ption 09/02/2020 Allergies, Adverse Reactions, Alerts Substance Reaction Codes Entered Date Inactivated Date Status LISINOPRIL RxNorm: 2846225No Inactive DateActiveMetformin UDtRcjnmlo91/28/2020No Inactive DateActive Problems Condition Codes Effective Dates [...] deficiencyICD-10: E55.9 ICD-9: 268.912/ctiveCoronary artery disease involving [place] coronary artery of [place] heart, angina presence unspecifiedICD-10: I25.10 ICD-9: 414.0111/ctiveShortness [...] vascular disease)ICD-10: I73.9 ICD-9: 443.909/ctiveDepressionICD-10: F32.9 ICD-9: 89534/2ResolvedDVT (deep venous thrombosis)ICD-10: I82.409 ICD-9: 453.4009esolvedEncounter for [...] L91.8 ICD-9: 701.911/1ActiveCallus of heelICD-10: L84 ICD-9: 90570/1ActiveImpacted cerumen, left earICD-10: H61.22 ICD-9: 380.408/1ActiveContact with [...] Z20.828 ICD-9: V01.7902/esolvedHyperhidrosis of palmsICD-10: L74.512 ICD-9: 705.9657EbhkdhYcedkqaqOszubod47/28/2020ActiveDiabetes mellitus Type 6Rgewnqn98/28/2020ActiveAnemia in chronic kidney diseaseICD-10: D63.1 02/12/2020ResolvedHyperlipidemia, unspecifiedICD-10: E78.Resolved Medications Medication Codes Instructions Start Date Stop Date Status Fill Instructions Diflucan 150 mg tablet RxNorm: 367462 Take 1 Tablet(s) Oral QD repeat on day 3 and 6 06/30/19 23 023 Inactive dextromethorphan-gu aifenesin 10 mg-100 mg/5 mL oral liquid RxNorm: 590428 Take 10 Milliliter(s) Oral every 4 hours as needed for cough 06/19/19 23 023 Inactive dextromethorphan-gu aifenesin 10 mg-100 mg/5 mL oral liquid RxNorm: 158797 Take 10 Milliliter(s) Oral every 4 hours as needed for cough 06/19/19 023 Inactive Lyrica 150 mg capsule RxNorm: 173169 Take 1 Capsule(s) Oral QHS every night at bedtime 06/18/19 023 Inactive d/c 100mg dose aripiprazole 15 mg tablet RxNorm: 588763 /2 TAB (7.5MG) ORALLY DAILY (DX:MAJOR DEPRESSIVE DISORDER) 06/05/19 023 Inactive pregabalin 100 mg capsule RxNorm: 458887 1 Capsule(s) Oral QAM every morning 06/02/19 023 Inactive Banophen 50 mg capsule RxNorm: 4716704 Take 1 Capsule(s) Oral Q6H every 6 hours as needed 05/19/19 23 No Stop Date Active Novolog Flexpen U-100 Insulin aspart 100 unit/mL (3 mL) subcutaneous RxNorm: 8412819 Inject 10 Unit(s) Subcutaneous QHS every night at bedtime with nighttime snack 04/08/20 022 Inactive Novolog Flexpen U-100 Insulin aspart 100 unit/mL (3 mL) subcutaneous RxNorm: 9689668 Inject 42 Unit(s) Subcutaneous TID in addition to sliding scale 04/08/20 022 Inactive d/c 36u albuterol sulfate HFA 90 mcg/actuation aerosol inhaler RxNorm: 4711604 Take 2 Puff(s) Inhalation Q4H every four hours as needed as needed for SOB, cough, or wheezing 04/07/20 030 Active Banophen 50 mg capsule RxNorm: 3093191 Take 1 Capsule(s) Oral Q6H every 6 hours as needed 04/06/20 023 Inactive diphenhydramine 50 mg tablet RxNorm: 2855424 Take 1 Tablet(s) Oral Q6H every 6 hours as needed 04/06/20 022 Inactive diphenhydramine 50 mg tablet RxNorm: 9765613 1 Tablet(s) Oral Q6H every 6 hours as needed 04/06/20 22 022 Inactive Abilify 15 mg tablet RxNorm: 834133 /2 Tablet(s) Oral QD 03/10/20 22 023 Inactive Shingrix (PF) 50 mcg/0.5 mL intramuscular suspension, kit RxNorm: 1710929 Administer 1/2 Milliliter(s) Intramuscular QD one time shingrix step 2 ( step 1 given 11/04/21) WITH needle - Nursing please administer upon arrival and once administered 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, finishing area supervisor, 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, and lot# so we can update [facility] 02/18/20 22 022 Inactive dispense with needle Shingrix (PF) 50 mcg/0.5 mL intramuscular suspension, kit RxNorm: 9431711 Administer 1/2 Milliliter(s) Intramuscular QD one time shingrix step 2 ( step 1 given 11/04/21) WITH needle - Nursing please administer upon arrival and once administered 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, finishing area supervisor, 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, and lot# so we can update [facility] 02/18/20 22 022 Inactive dispense with needle acetaminophen 500 mg tablet RxNorm: 812824 Take 1 Tablet(s) Oral TID 01/08/20 22 023 Active d/c PRN order polyethylene glycol 3350 17 gram/dose oral powder RxNorm: 441112 Take 17=1 capful Gram(s) Oral QD mix with 4-8oz of liquid 01/08/20 22 023 Active take this in addition to BID prn order Lyrica 100 mg capsule RxNorm: 379420 Take 1 Capsule(s) Oral QAM every morning 01/08/20 22 022 Inactive d/c 50mg dose Lyrica 150 mg capsule RxNorm: 939599 Take 1 Capsule(s) Oral QHS every night at bedtime 01/08/20 22 023 Inactive d/c 100mg dose Abilify 5 mg tablet RxNorm: 030850 Take 1 Tablet(s) Oral QD take 1 tab po QD #30 refill 5 dx: MDD 12/12/19 22 022 Inactive Abilify 5 mg tablet RxNorm: 797292 Take 1 Tablet(s) Oral QD take 1 tab po QD #30 refill 5 dx: MDD 12/12/19 22 022 Inactive chlorthalidone 25 mg tablet RxNorm: 807984 Take 1 Tablet(s) Oral QAM every morning 12/10/19 22 023 Active Novolog Flexpen U-100 Insulin aspart 100 unit/mL (3 mL) subcutaneous RxNorm: 6684765 Inject 42 Unit(s) Subcutaneous TID in addition to sliding scale 12/10/19 22 022 Inactive d/c 36u pregabalin 50 mg capsule RxNorm: 672996 Take 1 Capsule(s) Oral QAM every morning 11/12/19 22 022 Inactive tetanus-diphtheria toxoids-Td 2 Lf unit-2 Lf unit/0.5 mL IM suspension RxNorm: 139 Take 0.5 Miscellaneous Intramuscular 11/12/19 022 Inactive need tdap - nursing to administer upon arrival pregabalin 50 mg capsule RxNorm: 616892 Take 1 Capsule(s) Oral QAM every morning 10/16/19 22 022 Inactive pregabalin 50 mg capsule RxNorm: 040597 Take 1 Capsule(s) Oral QAM every morning 10/16/19 22 022 Inactive pregabalin 50 mg capsule RxNorm: 843910 1 Capsule(s) Oral QAM every morning 10/15/19 22 022 Inactive Shingrix (PF) 50 mcg/0.5 mL intramuscular suspension, kit RxNorm: 8515348 Administer 1/2 Milliliter(s) Intramuscular one time Nursing please administer upon arrival and once administered 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, finishing area 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 10/09/19 22 022 Inactive shingrix step 1 Shingrix (PF) 50 mcg/0.5 mL intramuscular suspension, kit RxNorm: 5548904 Administer 1/2 Milliliter(s) Intramuscular one time Nursing please administer upon arrival and once administered 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, finishing area 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 10/09/19 22 022 Inactive shingrix step 1 cholecalciferol (vitamin D3) 1,250 mcg (50,000 unit) capsule RxNorm: 713433 Take 1 Capsule(s) Oral QW once a [...] aspart 100 unit/mL (3 mL) subcutaneous RxNorm: 0871115 Inject 10 Unit(s) Subcutaneous QHS every night at bedtime with nighttime snack 10/08/19 22 Inactive Shingrix (PF) 50 mcg/0.5 mL intramuscular suspension, kit RxNorm: 3100609 ADMINISTER 2-DOSE SERIES PER CDC GUIDELINES 10/08/19 22 Active Shingrix (PF) 50 mcg/0.5 mL intramuscular suspension, kit RxNorm: 1787633 ADMINISTER 2-DOSE SERIES PER CDC GUIDELINES 10/08/19 22 Inactive Novolog Flexpen U-100 Insulin aspart 100 unit/mL (3 mL) subcutaneous RxNorm: 7864687 Inject 36 Unit(s) Subcutaneous TID in addition to sliding scale 10/08/19 22 Inactive Novofine Autocover 30 gauge x 1/3 needle RxNorm: Use 1 Miscellaneous UD as directed Use 1 needle as directed to administer insulin 5 times a day Dx:E11.42. 10/03/19 22 Inactive ok to substitute with any covered alternative pen needle benzoyl peroxide 10 % topical cleanser RxNorm: 600884 Apply 1 Application Topical QD apply to face, wash rinse and dry once daily (may change to QOD if drying) 08/19/19 22 Inactive (%covered by insurance) #60ml refill 11 dx: acne benzoyl peroxide 10 % topical cleanser RxNorm: 108014 Apply 1 Application Topical QD apply to face, wash rinse and dry once daily (may change to QOD if drying) 08/19/19 22 022 Inactive (%covered by insurance) #60ml refill 11 dx: acne benzoyl peroxide 10 % topical cleanser RxNorm: 502107 Apply 1 Application Topical QD apply to face, wash rinse and dry once daily (may change to QOD if drying) 08/19/19 22 022 Inactive (%covered by insurance) #60ml refill 11 dx: acne Lyrica 50 mg capsule RxNorm: 705033 Take 1 Capsule(s) Oral QAM every morning Take 1 capsule by mouth once daily 08/19/19 22 022 Inactive benzoyl peroxide 10 % topical cleanser RxNorm: 093369 Apply 1 Application Topical QD apply to face, wash rinse and dry once daily (may change to QOD if drying) 08/19/19 22 022 Inactive (%covered by insurance) #60ml refill 11 dx: acne Lyrica 100 mg capsule RxNorm: 269083 Take 1 Capsule(s) Oral QHS every night at bedtime Take 1 capsule by mouth once daily at bedtime 08/19/19 022 Inactive Lyrica 100 mg capsule RxNorm: 757147 Take 1 Capsule(s) Oral QHS every night at bedtime Take 1 capsule by mouth once daily at bedtime 08/16/19 22 022 Inactive Lyrica 50 mg capsule RxNorm: 376190 Take 1 Capsule(s) Oral QAM every morning Take 1 capsule by mouth once daily 08/16/19 22 Inactive Levemir FlexTouch U-100 Insulin 100 unit/mL (3 mL) subcutaneous pen RxNorm: 799700 Inject 86 Unit(s) Subcutaneous BID 08/05/19 22 022 Inactive d/c 83units BID Lyrica 100 mg capsule RxNorm: 977791 Take 1 Capsule(s) Oral QHS every night at bedtime Take 1 capsule by mouth once daily at bedtime 07/14/19 22 022 Inactive Lyrica 50 mg capsule RxNorm: 775324 Take 1 Capsule(s) Oral QAM every morning Take 1 capsule by mouth once daily 07/14/19 22 Inactive Levemir FlexTouch U-100 Insulin 100 unit/mL (3 mL) subcutaneous pen RxNorm: 300073 Inject 83 Unit(s) Subcutaneous BID 07/08/19 22 [...] times daily and as needed. Dx:E1142 06/05/19 022 Inactive ok to substitute with [...] insulin 5 times a day Dx:E1142. 06/05/19 022 Inactive ok to substitute [...] 30 mg tablet,extended release 24 hr RxNorm: 325520 Take 1 Tablet(s) Oral QD 05/05/20 No Stop Date Active hydralazine 50 mg tablet RxNorm: 171101 Take 1 Tablet(s) Oral QID 05/05/20 21 12/14/2 022 Inactive venlafaxine ER 225 mg tablet,extended release 24 hr RxNorm: 328156 Take 1 Tablet(s) Oral QD 05/05/20 Inactive venlafaxine ER 225 mg tablet,extended release 24 hr RxNorm: 686861 Take 1 Tablet(s) Oral QD 05/05/20 022 Inactive hydralazine 50 mg tablet RxNorm: 993678 Take 1 Tablet(s) Oral QID 05/05/20 Inactive aspirin 81 mg tablet,delayed release RxNorm: 925369 Take 1 Tablet(s) Oral QD 03/31/20 Inactive Zetia 10 mg tablet RxNorm: 668646 Take 1 Tablet(s) Oral QD 03/31/20 Inactive Vitamin D2 1,250 mcg (50,000 unit) capsule RxNorm: 4671036 Take 1 Capsule(s) Oral QW once a week x 12 weeks 03/31/20 Inactive Vitamin D2 1,250 mcg (50,000 unit) capsule RxNorm: 6170858 Take 1 Capsule(s) Oral QW once a week 03/31/20 Inactive Zetia 10 mg tablet RxNorm: 333948 Take 1 Tablet(s) Oral QD 03/31/20 Inactive hydralazine 25 mg tablet RxNorm: 966421 Take 1 Tablet(s) Oral QID 03/31/20 Inactive hydralazine 25 mg tablet RxNorm: 152687 Take 1 Tablet(s) Oral QID 03/31/20 Inactive hydralazine 10 mg tablet RxNorm: 605068 Take 1 Tablet(s) Oral QID 03/03/20 Inactive cephalexin 500 mg tablet RxNorm: 614985 Take 1 Tablet(s) Oral QID 02/27/20 Inactive cephalexin 500 mg tablet RxNorm: 852457 Take 1 Tablet(s) Oral QID 02/27/20 Inactive lisinopril 40 mg tablet RxNorm: 305502 Take 1 Tablet(s) Oral QD 02/11/20 023 Inactive Eliquis 5 mg tablet RxNorm: 8433932 Take 1 Tablet(s) Oral BID 01/05/20 21 022 Inactive Eliquis 5 mg tablet RxNorm: 4644593 Take 2 Tablet(s) Oral QD 01/01/20 21 021 Inactive Lyrica 50 mg capsule RxNorm: 632358 Take 1 Capsule(s) Oral QAM every morning 12/24/19 21 021 Inactive Lyrica 100 mg capsule RxNorm: 615937 Take 1 Capsule(s) Oral QHS every night at bedtime 12/24/19 021 Inactive clotrimazole 1 % topical cream RxNorm: 362426 Apply to right foot and toes Topical BID 12/04/19 21 023 Inactive metoprolol succinate ER 200 mg tablet,extended release 24 hr RxNorm: 798520 Take 1 Tablet(s) Oral QD 12/04/19 21 023 Inactive ciprofloxacin 500 mg tablet RxNorm: 040379 Take 1 Tablet(s) Oral QD 11/30/19 21 021 Inactive DX ofloxacin otic drops Accu-Chek Guide test strips RxNorm: USE 1 TO CHECK GLUCOSE 4 TIMES DAILY AND NEEDED 11/15/19 21 023 Inactive Blood Glucose Test strips RxNorm: Use 1 Test Strip QID at PRN 11/05/19 21 023 Inactive E11.42 lisinopril 30 mg tablet RxNorm: 492610 Take 1 Tablet(s) Oral QD 10/30/19 021 Inactive lisinopril 20 mg tablet RxNorm: 638592 Take 1 Tablet(s) Oral QD 10/23/19 021 Inactive lisinopril 20 mg tablet RxNorm: 236818 Take 1 Tablet(s) Oral QD 10/23/19 21 021 Inactive lisinopril 10 mg tablet RxNorm: 956444 Take 1 Tablet(s) Oral QD 10/02/19 21 021 Inactive icosapent ethyl 1 gram capsule RxNorm: 4438330 Take 2 Capsule(s) (2 gm) Oral BID with meals 09/12/19 Inactive Okay to dispense one 2gm tab if you have that available. icosapent ethyl 1 gram capsule RxNorm: 8645485 Take 2 Capsule(s) Oral BID 09/12/19 Inactive Okay to dispense one 2gm tab if you have that available. amlodipine 10 mg tablet RxNorm: 046924 Take 1 Tablet(s) Oral QD 09/04/19 Inactive aspirin 81 mg tablet,delayed release RxNorm: 155948 Take 1 Tablet(s) Oral QD 09/04/19 Inactive Levemir FlexTouch U-100 Insulin 100 unit/mL (3 mL) subcutaneous pen RxNorm: 779213 Inject 150 Unit(s) Subcutaneous BID 09/04/19 Inactive venlafaxine ER 150 mg tablet,extended release 24 hr RxNorm: 193844 Take 1 Tablet(s) Oral QD 09/04/19 Inactive clotrimazole-betame thasone 1 %-0.05 % topical cream RxNorm: 026300 Apply to rash on red area on left abdomen/chest Topical BID 08/10/19 Inactive amlodipine 5 mg tablet RxNorm: 574832 Take 1 Tablet(s) Oral QD 07/31/19 Inactive cephalexin 500 mg tablet RxNorm: 567121 Take 1 Tablet(s) Oral BID BID - Twice Daily 07/31/19 021 Inactive Start 08/01/20 pantoprazole 40 mg tablet,delayed release RxNorm: 157484 Take 1 Tablet(s) Oral QAM every morning 07/08/19 Inactive senna 8.6 mg tablet RxNorm: 106470 Take 1 Tablet(s) Oral QD 07/08/19 022 Inactive pravastatin 80 mg tablet RxNorm: 838527 Take 1 Tablet(s) Oral QHS every night at bedtime 07/08/19 022 Inactive carbamazepine 200 mg tablet RxNorm: 569245 Take 1 Tablet(s) Oral BID 07/08/19 022 Inactive torsemide 20 mg tablet RxNorm: 587242 Take 1 Tablet(s) Oral QD 07/08/19 21 023 Inactive clopidogrel 75 mg tablet RxNorm: 979278 Take 1 Tablet(s) Oral QD 07/08/19 021 Inactive Blood Glucose Test strips RxNorm: Use 1 Test Strip QID at PRN 07/08/19 Inactive E11.42 Novolog Flexpen U-100 Insulin aspart 100 unit/mL (3 mL) subcutaneous RxNorm: 4728431 Administer per sliding scale Milliliter(s) Subcutaneous TID 151-200: 10 u; 201-250: 20 u; 251-300: 30 u; 301-350: 40 u; 351-400: 50 u. 07/08/19 022 Inactive lisinopril 5 mg tablet RxNorm: 110543 Take 1 Tablet(s) Oral QD 07/08/19 021 Inactive Novolog Flexpen U-100 Insulin aspart 100 unit/mL (3 mL) subcutaneous RxNorm: 7224325 Inject 85 Unit(s) Subcutaneous TID 07/08/19 Inactive clotrimazole 1 % topical cream RxNorm: 361553 Apply to bilateral groin areas Topical BID 07/08/19 022 Inactive metoprolol succinate ER 200 mg tablet,extended release 24 hr RxNorm: 376068 Take 1 Tablet(s) Oral QD 07/08/19 Inactive Vitamin D3 25 mcg (1,000 unit) tablet RxNorm: 715128 Take 1 Tablet(s) Oral QD 07/08/19 021 Inactive isosorbide dinitrate 30 mg tablet RxNorm: 954890 Take 1 Tablet(s) Oral QD 07/08/19 021 Inactive Levemir FlexTouch U-100 Insulin 100 unit/mL (3 mL) subcutaneous pen RxNorm: 188100 Inject 140 Unit(s) Subcutaneous BID 07/08/19 021 Inactive venlafaxine 75 mg tablet RxNorm: 693021 Take 1 Tablet(s) Oral QD 07/08/19 21 021 Inactive acetaminophen 500 mg tablet RxNorm: 906151 Take 1 Tablet(s) Oral TID as needed for headache 06/18/19 21 021 Inactive acetaminophen 500 mg tablet RxNorm: 507004 Take 1 Tablet(s) Oral TID as needed for headache 06/18/19 21 021 Inactive Lyrica 100 mg capsule RxNorm: 764867 Take 1 Capsule(s) Oral QHS every night at bedtime 06/11/19 21 021 Inactive Lyrica 50 mg capsule RxNorm: 931183 Take 1 Capsule(s) Oral QAM every morning 06/10/19 21 021 Inactive hydrocortisone 2.5 % topical cream RxNorm: 029925 Apply to bilateral groin creases Topical BID 05/15/20 20 021 Inactive clotrimazole 1 % topical cream RxNorm: 733479 Apply to bilateral groin areas Topical BID 05/15/20 20 021 Inactive Lyrica 50 mg capsule RxNorm: 001427 Take 1 Capsule(s) Oral QAM every morning 05/14/20 20 020 Inactive Lyrica 100 mg capsule RxNorm: 379248 Take 1 Capsule(s) Oral QHS every night [...] and PRN 04/23/20 20 12/09/2 020 Inactive Nystop 100,000 unit/gram topical powder RxNorm: 406086 Apply to abd folds, under breasts and L side of groin Topical BID x 14 days, then BID PRN 04/08/20 20 Inactive dx: yeast dermatitis Lyrica 100 mg capsule RxNorm: 586698 Take 1 Capsule(s) Oral QHS every night at bedtime 03/13/20 20 Inactive Lyrica 50 mg capsule RxNorm: 457587 Take 1 Capsule(s) Oral QAM every morning 03/13/20 20 Inactive ketoconazole 2 % shampoo RxNorm: 092459 Apply Topical two times a week with showers 03/11/20 Inactive cholecalciferol (vitamin D3) 50 mcg (2,000 unit) tablet RxNorm: 602135 Take 1 Tablet(s) Oral QD 03/11/20 20 Inactive Zetia 10 mg tablet RxNorm: 483661 Take 1 Tablet(s) Oral QD 03/07/20 20 Inactive Zetia 10 mg tablet RxNorm: 653235 Take 1 Tablet(s) Oral QD 03/07/20 20 Inactive Lyrica 50 mg capsule RxNorm: 625409 Take 1 Capsule(s) Oral QAM every morning 02/15/20 20 Inactive Lyrica 100 mg capsule RxNorm: 389521 Take 1 Capsule(s) Oral QHS every night at bedtime 02/15/20 20 Inactive Lyrica 100 mg capsule RxNorm: 777480 Take 1 Capsule(s) Oral QHS every night at bedtime 02/15/20 20 Inactive Lyrica 50 mg capsule RxNorm: 286844 Take 1 Capsule(s) Oral QAM every morning 02/15/20 20 Inactive venlafaxine ER 75 mg capsule,extended release 24 hr RxNorm: 338907 Take 3 Capsule(s) Oral QD 06/12/2021 Activepolyethylene glycol 3350 17 gram/dose oral powderRxNorm: 490693Cmbv 17=1 capful Gram(s) Oral BID as needed mix with 4-8oz of qnxnts4606/12/2021ctive Levemir FlexTouch U-100 Insulin 100 unit/mL (3 mL) subcutaneous penRxNorm: 222760Esdirn 80 Unit(s) Subcutaneous BID07/14//Inactiveloperamide 2 mg capsuleRxNorm: 296350Yqka 1 Capsule(s) Oral QID as mpzpce0106/12/2021ctive Novolog Flexpen U-100 Insulin aspart 100 unit/mL (3 mL) subcutaneousRxNorm: 7841109Gkeotz 30 Unit(s) Subcutaneous TID with meals/Inactive Medication [...] Codes Status Date Referral: [facility] WPtel: [address], [address] [id number] USReferralRecords Oxhjlzog48/08/2023Referral: [facility] WPtel: [address] [id number] FUDmaneahmSakfxkcon12/12/2022Referral: General CardiologyReferralCompleted 1Referral: General PsychologistReferralClosed Instructions Comment Date Leonid is a Male being seen living at [facility]. Initial BPS visit 01/2020. PMHx including DMII, CAD w/ 5 stents, Depression, Seizure Disorder and CKD stage 3. He moved into [facility] in 12/2019 but after a hospitalization 05/2021 he moved to the [facility] to have closer nursing attention. Sister Jyotsna involved in his care cell# [phone] Guardian: Don (tapan met in person 09/01/21), now has Lexii (same group as don)Lab Schedule: * 10/06/2022
--- OUTSIDE RECORDS SUMMARY | 2022-06-27 18:00 | XMS_ITS | CCD ---
Author Name Sandra Clark CNP Address [address] [place] [address] Phone Organization [facility] Phone Care Team Providers Care [employer]oticist Name Role Phone Tapan Shirley PA-C Primary Care Provider Unavailabl e Tapan Shirley PA-C Chronic Care Management Unavaila ble Summary Purpose DataExchange Insurance Providers Payer name Policy type / Coverage type Covered alliance party ID Effective Begin Date Effective End Date [place] Part B [id number] Unknown Unknown [place] Part [place] [id number] Unknown Unknown Family history Sister Brittany Suggs Diagnosis Age At Onset No Family Disease Entered N/A Runs in the family Diagnosis Age At Onset No Known Diseases N/A Sister Blanka Mcduffie Diagnosis Age At Onset No Family Disease Entered N/A Social History Social History Element Codes Description Effec tive Dates Marital status Unknown Single 10/07/2021 Living arrangements Unknown Prison 09/03/[address]: 7775831 Non-Smoker / No History of Smoking 09/02/[address]: 982886072 No Alcohol Consum ption 09/02/2020 Allergies, Adverse Reactions, Alerts Substance Reaction Codes Entered Date Inactivated Date Status LISINOPRIL RxNorm: 4658307No Inactive DateActiveMetformin XBrMvmjjjk93/28/2020No Inactive DateActive Problems Condition Codes Effective Dates Condition St atus High risk medication use ICD-10: Z79.899 ICD-9: V58.69006/23/2022ctiveMajor depression, recurrentICD-10: F33.9 ICD-9: 296.3002ctiveCandidiasis, intertrigoICD-10: B37.2 ICD-9: 112.301ctiveHyperlipidemia associated with type 2 diabetes mellitusICD-10: E11.69 ICD-9: 250.8001/ctiveOnychogryposisICD-10: L60.2 ICD-9: 703.801/ctiveStage 2 chronic 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ICD-10: E11.22 ICD-9: 250.4001/ctiveType 2 diabetes mellitus with diabetic polyneuropathy, with long-term current use of insulinICD-10: E11.42 ICD-9: 250.6001/ctiveHypertensive heart disease without heart failure ICD-10: I11.9 ICD-9: 402.9012/ctiveVitamin D deficiencyICD-10: E55.9 ICD-9: 268.912/ctiveCoronary artery disease involving [place] coronary artery of [place] heart, angina presence unspecifiedICD-10: I25.10 ICD-9: 414.0111/ctiveShortness of breathICD-10: R06.02 ICD-9: 786.0511/ctiveSeizure disorderICD-10: G40.909 ICD-9: 345.9011/ctiveCellulitisICD-10: L03.90 ICD-9: 682.910/ctiveRecurrent major depressive disorder, in partial remissionICD-10: F33.41 ICD-9: 296.3510/ctiveReducible umbilical herniaICD-10: K42.9 ICD-9: 553.110/ctiveBMI 60.0-69.9, adultICD-10: Z68.44 ICD-9: V85.4410/ctiveInappropriate sexual behaviorICD-10: Z72.89 ICD-9: 312.8910/ctiveHx of deep venous thrombosisICD-10: Z86.718 ICD-9: V12.5109/ctiveHypercoagulable stateICD-10: D68.59 ICD-9: 289.8109/ctiveParaparesis of both lower limbsICD-10: G82.20 ICD-9: 344.109/2ActivePVD (peripheral vascular disease)ICD-10: I73.9 ICD-9: 443.909/2ActiveDepressionICD-10: F32.9 ICD-9: 76958/2ResolvedDVT (deep venous thrombosis)ICD-10: I82.409 ICD-9: 453.4009/2ResolvedEncounter for immunizationICD-10: Z23 ICD-9: V03.8909/2ResolvedLong term (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 insulinICD-10: Z79.4 09esolvedMuscular painICD-10: M79.10 ICD-9: 729.109/esolvedPain of right heelICD-10: M79.671 ICD-9: 729.509/esolvedDandruff in [...] L91.8 ICD-9: 701.911/1ActiveCallus of heelICD-10: L84 ICD-9: 27911/1ActiveImpacted cerumen, left earICD-10: H61.22 ICD-9: 380.408/ctiveContact with [...] Z20.828 ICD-9: V01.7902esolvedHyperhidrosis of palmsICD-10: L74.512 ICD-9: 705.2882IpimjbDfobvxykJpskera31/28/2020ActiveDiabetes mellitus Type 7Npzeccf61/28/2020ActiveAnemia in chronic kidney diseaseICD-10: D63.1 02/12/2020ResolvedHyperlipidemia, unspecifiedICD-10: E78.509Resolved Medications Medication Codes Instructions Start Date Stop Date Status Fill Instructions Diflucan 150 mg tablet RxNorm: 160506 Take 1 Tablet(s) Oral QD repeat on day 3 and 6 06/30/19 23 023 Inactive Accu-Chek Guide test strips RxNorm: Use 1 Test Strip QID Use 1 test strip to monitor blood glucose 4 times daily and as needed. Dx:E11.42. 02/07/ 023 Inactive ok to substitute with any covered alternative test strip dextromethorphan-gu aifenesin 10 mg-100 mg/5 mL oral liquid RxNorm: 638845 Take 10 Milliliter(s) Oral every 4 hours as needed for cough 06/19/19 23 023 Inactive dextromethorphan-gu aifenesin 10 mg-100 mg/5 mL oral liquid RxNorm: 775544 Take 10 Milliliter(s) Oral every 4 hours as needed for cough 06/19/19 023 Inactive Lyrica 150 mg capsule RxNorm: 569422 Take 1 Capsule(s) Oral QHS every night at bedtime 06/18/19 023 Inactive d/c 100mg dose aripiprazole 15 mg tablet RxNorm: 525173 /2 TAB (7.5MG) ORALLY DAILY (DX:MAJOR DEPRESSIVE DISORDER) 06/05/19 023 Inactive pregabalin 100 mg capsule RxNorm: 587730 1 Capsule(s) Oral QAM every morning 06/02/19 23 023 Inactive Banophen 50 mg capsule RxNorm: 4176018 Take 1 Capsule(s) Oral Q6H every 6 hours as needed 05/19/19 23 No Stop Date Active Novolog Flexpen U-100 Insulin aspart 100 unit/mL (3 mL) subcutaneous RxNorm: 8982337 Inject 10 Unit(s) Subcutaneous QHS every night at bedtime with nighttime snack 04/08/20 022 Inactive Novolog Flexpen U-100 Insulin aspart 100 unit/mL (3 mL) subcutaneous RxNorm: 6172681 Inject 42 Unit(s) Subcutaneous TID in addition to sliding scale 04/08/20 22 022 Inactive d/c 36u albuterol sulfate HFA 90 mcg/actuation aerosol inhaler RxNorm: 4177388 Take 2 Puff(s) Inhalation Q4H every four hours as needed as needed for SOB, cough, or wheezing 04/07/20 22 030 Active Banophen 50 mg capsule RxNorm: 0136011 Take 1 Capsule(s) Oral Q6H every 6 hours as needed 04/06/20 22 023 Inactive diphenhydramine 50 mg tablet RxNorm: 2191226 Take 1 Tablet(s) Oral Q6H every 6 hours as needed 04/06/20 22 022 Inactive diphenhydramine 50 mg tablet RxNorm: 8862828 1 Tablet(s) Oral Q6H every 6 hours as needed 04/06/20 22 022 Inactive Abilify 15 mg tablet RxNorm: 347769 1/2 Tablet(s) Oral QD 03/10/20 22 023 Inactive Shingrix (PF) 50 mcg/0.5 mL intramuscular suspension, kit RxNorm: 5797728 Administer 1/2 Milliliter(s) Intramuscular QD one time shingrix step 2 ( step 1 given 11/04/21) WITH needle - Nursing please administer upon arrival and once administered 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, 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, 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, and lot# so we can update MIIC 02/18/20 22 022 Inactive dispense with needle Shingrix (PF) 50 mcg/0.5 mL intramuscular suspension, kit RxNorm: 7420032 Administer 1/2 Milliliter(s) Intramuscular QD one time shingrix step 2 ( step 1 given 11/04/21) WITH needle - Nursing please administer upon arrival and once administered 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, 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, 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, and lot# so we can update MIIC 02/18/20 22 022 Inactive dispense with needle acetaminophen 500 mg tablet RxNorm: 106560 Take 1 Tablet(s) Oral TID 01/08/20 22 023 Active d/c PRN order polyethylene glycol 3350 17 gram/dose oral powder RxNorm: 714062 Take 17=1 capful Gram(s) Oral QD mix with 4-8oz of liquid 01/08/20 22 023 Active take this in addition to BID prn order Lyrica 100 mg capsule RxNorm: 871192 Take 1 Capsule(s) Oral QAM every morning 01/08/20 22 022 Inactive d/c 50mg dose Lyrica 150 mg capsule RxNorm: 441204 Take 1 Capsule(s) Oral QHS every night at bedtime 01/08/20 22 023 Inactive d/c 100mg dose Abilify 5 mg tablet RxNorm: 783447 Take 1 Tablet(s) Oral QD take 1 tab po QD #30 refill 5 dx: MDD 12/12/19 22 022 Inactive Abilify 5 mg tablet RxNorm: 491341 Take 1 Tablet(s) Oral QD take 1 tab po QD #30 refill 5 dx: MDD 12/12/19 22 022 Inactive chlorthalidone 25 mg tablet RxNorm: 849351 Take 1 Tablet(s) Oral QAM every morning 12/10/19 22 023 Active Novolog Flexpen U-100 Insulin aspart 100 unit/mL (3 mL) subcutaneous RxNorm: 5149697 Inject 42 Unit(s) Subcutaneous TID in addition to sliding scale 12/10/19 22 022 Inactive d/c 36u pregabalin 50 mg capsule RxNorm: 376888 Take 1 Capsule(s) Oral QAM every morning 11/12/19 22 022 Inactive tetanus-diphtheria toxoids-Td 2 Lf unit-2 Lf unit/0.5 mL IM suspension RxNorm: 139 Take 0.5 Miscellaneous Intramuscular 11/12/19 22 022 Inactive need tdap - nursing to administer upon arrival pregabalin 50 mg capsule RxNorm: 616080 Take 1 Capsule(s) Oral QAM every morning 10/16/19 22 022 Inactive pregabalin 50 mg capsule RxNorm: 113664 Take 1 Capsule(s) Oral QAM every morning 10/16/19 22 022 Inactive pregabalin 50 mg capsule RxNorm: 562362 1 Capsule(s) Oral QAM every morning 10/15/19 22 022 Inactive Shingrix (PF) 50 mcg/0.5 mL intramuscular suspension, kit RxNorm: 8053543 Administer 1/2 Milliliter(s) Intramuscular one time Nursing please administer upon arrival and once administered 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 10/09/19 22 Inactive shingrix step 1 cholecalciferol (vitamin D3) 1,250 mcg (50,000 unit) capsule RxNorm: 214303 Take 1 Capsule(s) Oral QW once a [...] aspart 100 unit/mL (3 mL) subcutaneous RxNorm: 7907961 Inject 10 Unit(s) Subcutaneous QHS every night at bedtime with nighttime snack 10/08/19 22 Inactive Shingrix (PF) 50 mcg/0.5 mL intramuscular suspension, kit RxNorm: 8559330 ADMINISTER 2-DOSE SERIES PER CDC GUIDELINES 10/08/19 22 Active Shingrix (PF) 50 mcg/0.5 mL intramuscular suspension, kit RxNorm: 3057739 ADMINISTER 2-DOSE SERIES PER CDC GUIDELINES 10/08/19 22 Inactive Novolog Flexpen U-100 Insulin aspart 100 unit/mL (3 mL) subcutaneous RxNorm: 2234297 Inject 36 Unit(s) Subcutaneous TID in addition to sliding scale 10/08/19 22 Inactive Novofine Autocover 30 gauge x 1/3 needle RxNorm: Use 1 Miscellaneous UD as directed Use 1 needle as directed to administer insulin 5 times a day Dx:E11.42. 05/19 022 Inactive ok to substitute with any covered alternative pen needle benzoyl peroxide 10 % topical cleanser RxNorm: 932382 Apply 1 Application Topical QD apply to face, wash rinse and dry once daily (may change to QOD if drying) 08/19/19 22 022 Inactive (%covered by insurance) #60ml refill 11 dx: acne benzoyl peroxide 10 % topical cleanser RxNorm: 711556 Apply 1 Application Topical QD apply to face, wash rinse and dry once daily (may change to QOD if drying) 08/19/19 22 022 Inactive (%covered by insurance) #60ml refill 11 dx: acne benzoyl peroxide 10 % topical cleanser RxNorm: 230323 Apply 1 Application Topical QD apply to face, wash rinse and dry once daily (may change to QOD if drying) 08/19/19 022 Inactive (%covered by insurance) #60ml refill 11 dx: acne Lyrica 50 mg capsule RxNorm: 116764 Take 1 Capsule(s) Oral QAM every morning Take 1 capsule by mouth once daily 08/19/19 022 Inactive benzoyl peroxide 10 % topical cleanser RxNorm: 122593 Apply 1 Application Topical QD apply to face, wash rinse and dry once daily (may change to QOD if drying) 08/19/19 022 Inactive (%covered by insurance) #60ml refill 11 dx: acne Lyrica 100 mg capsule RxNorm: 351834 Take 1 Capsule(s) Oral QHS every night at bedtime Take 1 capsule by mouth once daily at bedtime 08/19/19 22 022 Inactive Lyrica 100 mg capsule RxNorm: 620626 Take 1 Capsule(s) Oral QHS every night at bedtime Take 1 capsule by mouth once daily at bedtime 08/16/19 Inactive Lyrica 50 mg capsule RxNorm: 204536 Take 1 Capsule(s) Oral QAM every morning Take 1 capsule by mouth once daily 08/16/19 22 Inactive Levemir FlexTouch U-100 Insulin 100 unit/mL (3 mL) subcutaneous pen RxNorm: 112259 Inject 86 Unit(s) Subcutaneous BID 08/05/19 22 022 Inactive d/c 83units BID Lyrica 100 mg capsule RxNorm: 611501 Take 1 Capsule(s) Oral QHS every night at bedtime Take 1 capsule by mouth once daily at bedtime 07/14/19 22 022 Inactive Lyrica 50 mg capsule RxNorm: 651919 Take 1 Capsule(s) Oral QAM every morning Take 1 capsule by mouth once daily 07/14/19 22 022 Inactive Levemir FlexTouch U-100 Insulin 100 unit/mL (3 mL) subcutaneous pen RxNorm: 156040 Inject 83 Unit(s) Subcutaneous BID 07/08/19 22 [...] as directed to administer insulin. Dx:E1142. 06/05/19 022 Inactive ok to substitute [...] daily and as needed. Dx:E11.42. 06/05/19 22 Inactive ok to substitute with any covered alternative test strip isosorbide mononitrate ER 30 mg tablet,extended release 24 hr RxNorm: 684425 Take 1 Tablet(s) Oral QD 05/05/20 No Stop Date Active hydralazine 50 mg tablet RxNorm: 514940 Take 1 Tablet(s) Oral QID 05/05/20 Inactive venlafaxine ER 225 mg tablet,extended release 24 hr RxNorm: 936037 Take 1 Tablet(s) Oral QD 05/05/20 Inactive venlafaxine ER 225 mg tablet,extended release 24 hr RxNorm: 767069 Take 1 Tablet(s) Oral QD 05/05/20 022 Inactive hydralazine 50 mg tablet RxNorm: 848147 Take 1 Tablet(s) Oral QID 05/05/20 Inactive aspirin 81 mg tablet,delayed release RxNorm: 667295 Take 1 Tablet(s) Oral QD 03/31/20 022 Inactive Zetia 10 mg tablet RxNorm: 255605 Take 1 Tablet(s) Oral QD 03/31/20 Inactive Vitamin D2 1,250 mcg (50,000 unit) capsule RxNorm: 2210050 Take 1 Capsule(s) Oral QW once a week x 12 weeks 03/31/20 Inactive Vitamin D2 1,250 mcg (50,000 unit) capsule RxNorm: 5833185 Take 1 Capsule(s) Oral QW once a week 03/31/20 Inactive Zetia 10 mg tablet RxNorm: 015512 Take 1 Tablet(s) Oral QD 03/31/20 Inactive hydralazine 25 mg tablet RxNorm: 217061 Take 1 Tablet(s) Oral QID 03/31/20 21 021 Inactive hydralazine 25 mg tablet RxNorm: 195545 Take 1 Tablet(s) Oral QID 03/31/20 Inactive hydralazine 10 mg tablet RxNorm: 570070 Take 1 Tablet(s) Oral QID 03/03/20 021 Inactive cephalexin 500 mg tablet RxNorm: 443126 Take 1 Tablet(s) Oral QID 02/27/20 021 Inactive cephalexin 500 mg tablet RxNorm: 278330 Take 1 Tablet(s) Oral QID 02/27/20 021 Inactive lisinopril 40 mg tablet RxNorm: 682836 Take 1 Tablet(s) Oral QD 02/11/20 023 Inactive Eliquis 5 mg tablet RxNorm: 4271304 Take 1 Tablet(s) Oral BID 01/05/20 21 022 Inactive Eliquis 5 mg tablet RxNorm: 1606202 Take 2 Tablet(s) Oral QD 01/01/20 021 Inactive Lyrica 50 mg capsule RxNorm: 017448 Take 1 Capsule(s) Oral QAM every morning 12/24/19 021 Inactive Lyrica 100 mg capsule RxNorm: 587501 Take 1 Capsule(s) Oral QHS every night at bedtime 12/24/19 021 Inactive clotrimazole 1 % topical cream RxNorm: 583508 Apply to right foot and toes Topical BID 12/04/19 21 023 Inactive metoprolol succinate ER 200 mg tablet,extended release 24 hr RxNorm: 277991 Take 1 Tablet(s) Oral QD 12/04/19 023 Inactive ciprofloxacin 500 mg tablet RxNorm: 777512 Take 1 Tablet(s) Oral QD 11/30/19 021 Inactive DX ofloxacin otic drops Accu-Chek Guide test strips RxNorm: USE 1 TO CHECK GLUCOSE 4 TIMES DAILY AND NEEDED 11/15/19 21 023 Inactive Blood Glucose Test strips RxNorm: Use 1 Test Strip QID at PRN 11/05/19 21 023 Inactive E11.42 lisinopril 30 mg tablet RxNorm: 721471 Take 1 Tablet(s) Oral QD 10/30/19 021 Inactive lisinopril 20 mg tablet RxNorm: 760151 Take 1 Tablet(s) Oral QD 10/23/19 21 021 Inactive lisinopril 20 mg tablet RxNorm: 943394 Take 1 Tablet(s) Oral QD 10/23/19 21 021 Inactive lisinopril 10 mg tablet RxNorm: 920497 Take 1 Tablet(s) Oral QD 10/02/19 21 021 Inactive icosapent ethyl 1 gram capsule RxNorm: 7328016 Take 2 Capsule(s) (2 gm) Oral BID with meals 09/12/19 022 Inactive Okay to dispense one 2gm tab if you have that available. icosapent ethyl 1 gram capsule RxNorm: 4501777 Take 2 Capsule(s) Oral BID 09/12/19 021 Inactive Okay to dispense one 2gm tab if you have that available. amlodipine 10 mg tablet RxNorm: 895803 Take 1 Tablet(s) Oral QD 09/04/19 022 Inactive aspirin 81 mg tablet,delayed release RxNorm: 743938 Take 1 Tablet(s) Oral QD 09/04/19 21 021 Inactive Levemir FlexTouch U-100 Insulin 100 unit/mL (3 mL) subcutaneous pen RxNorm: 572101 Inject 150 Unit(s) Subcutaneous BID 09/04/19 21 022 Inactive venlafaxine ER 150 mg tablet,extended release 24 hr RxNorm: 584756 Take 1 Tablet(s) Oral QD 09/04/19 21 021 Inactive clotrimazole-betame thasone 1 %-0.05 % topical cream RxNorm: 026653 Apply to rash on red area on left abdomen/chest Topical BID 08/10/19 21 021 Inactive amlodipine 5 mg tablet RxNorm: 286354 Take 1 Tablet(s) Oral QD 07/31/19 21 021 Inactive cephalexin 500 mg tablet RxNorm: 052329 Take 1 Tablet(s) Oral BID BID - Twice Daily 07/31/19 21 021 Inactive Start 08/01/20 pantoprazole 40 mg tablet,delayed release RxNorm: 508074 Take 1 Tablet(s) Oral QAM every morning 07/08/19 022 Inactive senna 8.6 mg tablet RxNorm: 315686 Take 1 Tablet(s) Oral QD 07/08/19 022 Inactive pravastatin 80 mg tablet RxNorm: 851267 Take 1 Tablet(s) Oral QHS every night at bedtime 07/08/19 Inactive carbamazepine 200 mg tablet RxNorm: 709088 Take 1 Tablet(s) Oral BID 07/08/19 022 Inactive torsemide 20 mg tablet RxNorm: 601555 Take 1 Tablet(s) Oral QD 07/08/19 023 Inactive clopidogrel 75 mg tablet RxNorm: 875724 Take 1 Tablet(s) Oral QD 07/08/19 021 Inactive Blood Glucose Test strips RxNorm: Use 1 Test Strip QID at PRN 07/08/19 Inactive E11.42 Novolog Flexpen U-100 Insulin aspart 100 unit/mL (3 mL) subcutaneous RxNorm: 8945004 Administer per sliding scale Milliliter(s) Subcutaneous TID 151-200: 10 u; 201-250: 20 u; 251-300: 30 u; 301-350: 40 u; 351-400: 50 u. 07/08/19 022 Inactive lisinopril 5 mg tablet RxNorm: 700979 Take 1 Tablet(s) Oral QD 07/08/19 Inactive Novolog Flexpen U-100 Insulin aspart 100 unit/mL (3 mL) subcutaneous RxNorm: 1732705 Inject 85 Unit(s) Subcutaneous TID 07/08/19 022 Inactive clotrimazole 1 % topical cream RxNorm: 536447 Apply to bilateral groin areas Topical BID 07/08/19 022 Inactive metoprolol succinate ER 200 mg tablet,extended release 24 hr RxNorm: 423671 Take 1 Tablet(s) Oral QD 07/08/19 021 Inactive Vitamin D3 25 mcg (1,000 unit) tablet RxNorm: 435176 Take 1 Tablet(s) Oral QD 07/08/19 21 Inactive isosorbide dinitrate 30 mg tablet RxNorm: 798903 Take 1 Tablet(s) Oral QD 07/08/19 Inactive Levemir FlexTouch U-100 Insulin 100 unit/mL (3 mL) subcutaneous pen RxNorm: 581059 Inject 140 Unit(s) Subcutaneous BID 07/08/19 Inactive venlafaxine 75 mg tablet RxNorm: 715311 Take 1 Tablet(s) Oral QD 07/08/19 Inactive acetaminophen 500 mg tablet RxNorm: 551386 Take 1 Tablet(s) Oral TID as needed for headache 06/18/19 Inactive acetaminophen 500 mg tablet RxNorm: 366833 Take 1 Tablet(s) Oral TID as needed for headache 06/18/19 Inactive Lyrica 100 mg capsule RxNorm: 497892 Take 1 Capsule(s) Oral QHS every night at bedtime 06/11/19 021 Inactive Lyrica 50 mg capsule RxNorm: 607069 Take 1 Capsule(s) Oral QAM every morning 06/10/19 21 021 Inactive hydrocortisone 2.5 % topical cream RxNorm: 359448 Apply to bilateral groin creases Topical BID 05/15/20 20 021 Inactive clotrimazole 1 % topical cream RxNorm: 849316 Apply to bilateral groin areas Topical BID 05/15/20 20 021 Inactive Lyrica 50 mg capsule RxNorm: 414359 Take 1 Capsule(s) Oral QAM every morning 05/14/20 20 020 Inactive Lyrica 100 mg capsule RxNorm: 162890 Take 1 Capsule(s) Oral QHS every night [...] Inactive Nystop 100,000 unit/gram topical powder RxNorm: 336507 Apply to abd folds, under breasts and L side of groin Topical BID x 14 days, then BID PRN 04/08/20 20 Inactive dx: yeast dermatitis Lyrica 100 mg capsule RxNorm: 540754 Take 1 Capsule(s) Oral QHS every night at bedtime 03/13/20 20 Inactive Lyrica 50 mg capsule RxNorm: 208066 Take 1 Capsule(s) Oral QAM every morning 03/13/20 20 Inactive ketoconazole 2 % shampoo RxNorm: 973445 Apply Topical two times a week with showers 03/11/20 20 Inactive cholecalciferol (vitamin D3) 50 mcg (2,000 unit) tablet RxNorm: 015251 Take 1 Tablet(s) Oral QD 03/11/20 20 021 Inactive Zetia 10 mg tablet RxNorm: 471253 Take 1 Tablet(s) Oral QD 03/07/20 20 021 Inactive Zetia 10 mg tablet RxNorm: 623873 Take 1 Tablet(s) Oral QD 03/07/20 20 Inactive Lyrica 50 mg capsule RxNorm: 977648 Take 1 Capsule(s) Oral QAM every morning 02/15/20 20 Inactive Lyrica 100 mg capsule RxNorm: 761092 Take 1 Capsule(s) Oral QHS every night at bedtime 02/15/20 20 Inactive Lyrica 100 mg capsule RxNorm: 174795 Take 1 Capsule(s) Oral QHS every night at bedtime 02/15/20 Inactive Lyrica 50 mg capsule RxNorm: 187879 Take 1 Capsule(s) Oral QAM every morning 02/15/20 Inactive venlafaxine ER 75 mg capsule,extended release 24 hr RxNorm: 580257 Take 3 Capsule(s) Oral QD 06/12/2021 Activepolyethylene glycol 3350 17 gram/dose oral powderRxNorm: 149922Zevx 17=1 capful Gram(s) Oral BID as needed mix with 4-8oz of vupfdr7006/12/2021ctive Levemir FlexTouch U-100 Insulin 100 unit/mL (3 mL) subcutaneous penRxNorm: 291495Ccfoup 80 Unit(s) Subcutaneous BID07/14//Inactiveloperamide 2 mg capsuleRxNorm: 886276Pdet 1 Capsule(s) Oral QID as bssovs9106/12/2021ctive Novolog Flexpen U-100 Insulin aspart 100 unit/mL (3 mL) subcutaneousRxNorm: 0709048Lvhxus 30 Unit(s) Subcutaneous TID with meals/Inactive Medication [...] CVX: 115 2008 Vital Signs Date Vital 06/23/2022 Blood Pressure 1: 148/74 Code: 8480-6 Heart Rate 1: 90 bpm Code: 8867-4 Height: 5'5 Code: 8302-2 Respiratory Rate: 15 bpm SpO2: 90% Temperature: 36.3 (C) / 97.4 (F) Reason For Visit No Reason For Visit data Encounters Encounter Performer Location Location Address Codes Cristiano e ([id number]) Home or Residence Vi sit Est Pt - Low Level, 30 mins Diagnosis: Major depression, recurrent[ICD10: F33.9] Diagnosis: High risk medication use[ICD10: Z79.899]Sandra Laura [place] on [id number] [place] [address]OLB-7: [id number] Plan of Care Planned Activity Notes Codes Status Date Referral: [facility] WPtel: [address], [address] [id number] USReferralRecords Fhaysiai56/08/2023Patient Education: Patient Medication AdogngwWxnavmmxe62/07/2023Patient Education: Influenza VaccineCompleted 3Appointment: Tapan Shirley WPtel: [address] [facility] [address] [id number] [facility]/U02Referral: [facility] WPtel: [address] [id number] ZFOcoxjqeqZvcrceatw65/12/2022Referral: General CardiologyReferralCompleted 1Referral: General PsychologistReferralClosed Instructions Comment Date Leonid is a Male being seen living at [facility]. Initial BPS visit 01/2020. PMHx including DMII, CAD w/ 5 stents, Depression, Seizure Disorder and CKD stage 3. He moved into [facility] in 12/2019 but after a hospitalization 05/2021 he moved to the [facility] to have closer nursing attention. Sister Jyotsna involved in his care cell# [phone] Guardian: Don (tapan met in person 09/01/21), now has Lexii (same group as don)Lab Schedule: * 10/06/2022 High risk medication use Currently taking antipsychotic medications for depression. Monitor for sedation and falls. Screening for movement issues/concerns every visit. No adverse effects noted unless noted above. Will reviewmedications at every visit and attempt to reduce medications upon future assessment. Benefits currently outweigh the risks. Depression No longer interested in psychotherapy.?? Does not feel needed. Continue Abilify 7.5mg daily, Venlafaxine 225mg daily.? .06/23/2022
--- OUTSIDE RECORDS SUMMARY | 2022-07-01 18:00 | XMS_ITS | CCD ---
Author Name Alissa Zheng MD her Address [address] [place] [address] [address] [place] [address] Phone Organization [facility] Phone Care Team Providers Care Telecom Billing Analyst Name Role Phone Rosalina Shirley PA-C Primary Care Provider Unavailabl e Rosalina Shirley PA-C Chronic Care Management Unavaila ble Summary Purpose DataExchange Insurance Providers Payer name Policy type / Coverage type Covered republican ID Effective Begin Date Effective End Date [place] Part B [id number] Unknown Unknown Medicaid [place] Medicare Part B [id number] Unknown Unknown Family history Sister Brittany Suggs Diagnosis Age At Onset No Family Disease Entered N/A Runs in the family Diagnosis Age At Onset No Known Diseases N/A Sister Blanka Mcduffie Diagnosis Age At Onset No Family Disease Entered N/A Social History Social History Element Codes Description Effec tive Dates Marital status Unknown Single 10/07/2021 Living arrangements Unknown Senior Living 09/03/[address]: 0628935 Non-Smoker / No History of Smoking 09/02/[address]: 831404043 No Alcohol Consum ption 09/02/2020 Allergies, Adverse Reactions, Alerts Substance Reaction Codes Entered Date Inactivated Date Status LISINOPRIL RxNorm: 8650359No Inactive DateActiveMetformin WPeShwdsru94/28/2020No Inactive DateActive Problems Condition Codes Effective Dates Condition St atus Candidiasis, intertrigo ICD-10: B37.2 ICD-9: 112.301ctiveHyperlipidemia associated with type 2 diabetes mellitusICD-10: E11.69 ICD-9: 250.8001ctiveOnychogryposisICD-10: L60.2 ICD-9: 703.801ctiveStage 2 chronic 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ICD-10: E11.22 ICD-9: 250.4001/3ActiveType 2 diabetes mellitus with diabetic polyneuropathy, with long-term current use of insulinICD-10: E11.42 ICD-9: 250.6001/ctiveHypertensive heart disease without heart failure ICD-10: I11.9 ICD-9: 402.9012/ctiveHigh risk medication useICD-10: Z79.899 ICD-9: V58.6912/ctiveMajor depression, recurrentICD-10: F33.9 ICD-9: 296.3012/ctiveVitamin D deficiencyICD-10: E55.9 ICD-9: 268.912/ctiveCoronary artery disease involving jena coronary artery of jena heart, angina presence unspecifiedICD-10: I25.10 ICD-9: 414.0111/ctiveShortness [...] vascular disease)ICD-10: I73.9 ICD-9: 443.909/2ActiveDepressionICD-10: F32.9 ICD-9: 22154/2ResolvedDVT (deep venous thrombosis)ICD-10: I82.409 ICD-9: 453.4009/2ResolvedEncounter for [...] L91.8 ICD-9: 701.911/1ActiveCallus of heelICD-10: L84 ICD-9: 87979/1ActiveImpacted cerumen, left earICD-10: H61.22 ICD-9: 380.408/ctiveContact with and (suspected) exposure to covid-19 ICD-10: Z20.822 ICD-9: V01.7908/esolvedOther infective acute otitis externa of left ear ICD-10: H60.392 ICD-9: 380.1008/esolvedScrotal skin lesionICD-10: N50.9 ICD-9: 608.908/esolvedTinea pedisICD-10: B35.3 ICD-9: 110.408/esolvedAnemia due to stage 3b chronic kidney diseaseICD- 10: N18.32 ICD-9: 285.2105esolvedChronic kidney disease, stage 3 unspecifiedICD- 10: N18.3004/esolvedContact with and (suspected) exposure to other viral communicable diseasesICD-10: Z20.828 ICD-9: V01.7902esolvedHyperhidrosis of palmsICD-10: L74.512 ICD-9: 705.7034SkfotnXevkrifuRjboyzh00/28/2020ActiveDiabetes mellitus Type 7Phqgysf82/28/2020ActiveAnemia in chronic kidney diseaseICD-10: D63.1 02/12/2020ResolvedHyperlipidemia, unspecifiedICD-10: E78.509Resolved Medications Medication Codes Instructions Start Date Stop Date Status Fill Instructions Diflucan 150 mg tablet RxNorm: 761281 Take 1 Tablet(s) Oral QD repeat on day 3 and 6 06/30/19 23 023 Inactive aripiprazole 15 mg tablet RxNorm: 423764 / TAB (7.5MG) ORALLY DAILY (DX:MAJOR DEPRESSIVE DISORDER) 06/05/19 23 023 Inactive pregabalin 100 mg capsule RxNorm: 994289 1 Capsule(s) Oral QAM every morning 06/02/19 023 Inactive Banophen 50 mg capsule RxNorm: 4087144 Take 1 Capsule(s) Oral Q6H every 6 hours as needed 05/19/19 No Stop Date Active Novolog Flexpen U-100 Insulin aspart 100 unit/mL (3 mL) subcutaneous RxNorm: 9258289 Inject 10 Unit(s) Subcutaneous QHS every night at bedtime with nighttime snack 04/08/20 022 Inactive Novolog Flexpen U-100 Insulin aspart 100 unit/mL (3 mL) subcutaneous RxNorm: 6373063 Inject 42 Unit(s) Subcutaneous TID in addition to sliding scale 04/08/20 Inactive d/c 36u albuterol sulfate HFA 90 mcg/actuation aerosol inhaler RxNorm: 3800755 Take 2 Puff(s) Inhalation Q4H every four hours as needed as needed for SOB, cough, or wheezing 04/07/20 030 Active Banophen 50 mg capsule RxNorm: 4589894 Take 1 Capsule(s) Oral Q6H every 6 hours as needed 04/06/20 023 Inactive diphenhydramine 50 mg tablet RxNorm: 1536436 Take 1 Tablet(s) Oral Q6H every 6 hours as needed 04/06/20 022 Inactive diphenhydramine 50 mg tablet RxNorm: 2078593 1 Tablet(s) Oral Q6H every 6 hours as needed 04/06/20 022 Inactive Abilify 15 mg tablet RxNorm: 059427 1/2 Tablet(s) Oral QD 03/10/20 22 023 Inactive Shingrix (PF) 50 mcg/0.5 mL intramuscular suspension, kit RxNorm: 4837879 Administer 1/2 Milliliter(s) Intramuscular QD one time shingrix step 2 ( step 1 given 11/04/21) WITH needle - Nursing please administer upon arrival and once administered 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, lead recoverer, 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, and lot# so we can update MIIC 02/18/20 22 022 Inactive dispense with needle Shingrix (PF) 50 mcg/0.5 mL intramuscular suspension, kit RxNorm: 5191072 Administer 1/2 Milliliter(s) Intramuscular QD one time shingrix step 2 ( step 1 given 11/04/21) WITH needle - Nursing please administer upon arrival and once administered 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, lead recoverer, 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, and lot# so we can update MIIC 02/18/20 22 022 Inactive dispense with needle acetaminophen 500 mg tablet RxNorm: 473596 Take 1 Tablet(s) Oral TID 01/08/20 22 023 Active d/c PRN order polyethylene glycol 3350 17 gram/dose oral powder RxNorm: 176493 Take 17=1 capful Gram(s) Oral QD mix with 4-8oz of liquid 01/08/20 22 023 Active take this in addition to BID prn order Lyrica 100 mg capsule RxNorm: 765017 Take 1 Capsule(s) Oral QAM every morning 01/08/20 22 022 Inactive d/c 50mg dose Lyrica 150 mg capsule RxNorm: 313587 Take 1 Capsule(s) Oral QHS every night at bedtime 01/08/20 22 023 Inactive d/c 100mg dose Abilify 5 mg tablet RxNorm: 673504 Take 1 Tablet(s) Oral QD take 1 tab po QD #30 refill 5 dx: MDD 12/12/19 22 022 Inactive Abilify 5 mg tablet RxNorm: 805702 Take 1 Tablet(s) Oral QD take 1 tab po QD #30 refill 5 dx: MDD 12/12/19 22 022 Inactive chlorthalidone 25 mg tablet RxNorm: 719322 Take 1 Tablet(s) Oral QAM every morning 12/10/19 22 023 Active Novolog Flexpen U-100 Insulin aspart 100 unit/mL (3 mL) subcutaneous RxNorm: 1992411 Inject 42 Unit(s) Subcutaneous TID in addition to sliding scale 12/10/19 22 022 Inactive d/c 36u pregabalin 50 mg capsule RxNorm: 936955 Take 1 Capsule(s) Oral QAM every morning 11/12/19 22 Inactive tetanus-diphtheria toxoids-Td 2 Lf unit-2 Lf unit/0.5 mL IM suspension RxNorm: 139 Take 0.5 Miscellaneous Intramuscular 11/12/19 22 022 Inactive need tdap - nursing to administer upon arrival pregabalin 50 mg capsule RxNorm: 272015 Take 1 Capsule(s) Oral QAM every morning 10/16/19 22 022 Inactive pregabalin 50 mg capsule RxNorm: 585696 Take 1 Capsule(s) Oral QAM every morning 10/16/19 22 022 Inactive pregabalin 50 mg capsule RxNorm: 354930 1 Capsule(s) Oral QAM every morning 10/15/19 22 022 Inactive Shingrix (PF) 50 mcg/0.5 mL intramuscular suspension, kit RxNorm: 9685087 Administer 1/2 Milliliter(s) Intramuscular one time Nursing please administer upon arrival and once administered 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, lead recoverer, 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 10/09/19 22 022 Inactive shingrix step 1 Shingrix (PF) 50 mcg/0.5 mL intramuscular suspension, kit RxNorm: 3162405 Administer 1/2 Milliliter(s) Intramuscular one time Nursing please administer upon arrival and once administered 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, lead recoverer, 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 10/09/19 22 022 Inactive shingrix step 1 cholecalciferol (vitamin D3) 1,250 mcg (50,000 unit) capsule RxNorm: 914127 Take 1 Capsule(s) Oral QW once a [...] aspart 100 unit/mL (3 mL) subcutaneous RxNorm: 2560452 Inject 10 Unit(s) Subcutaneous QHS every night at bedtime with nighttime snack 10/08/19 22 Inactive Shingrix (PF) 50 mcg/0.5 mL intramuscular suspension, kit RxNorm: 5346685 ADMINISTER 2-DOSE SERIES PER CDC GUIDELINES 10/08/19 22 Active Shingrix (PF) 50 mcg/0.5 mL intramuscular suspension, kit RxNorm: 5401772 ADMINISTER 2-DOSE SERIES PER CDC GUIDELINES 10/08/19 22 Inactive Novolog Flexpen U-100 Insulin aspart 100 unit/mL (3 mL) subcutaneous RxNorm: 9365823 Inject 36 Unit(s) Subcutaneous TID in addition to sliding scale 10/08/19 22 Inactive Novofine Autocover 30 gauge x 1/3 needle RxNorm: Use 1 Miscellaneous UD as directed Use 1 needle as directed to administer insulin 5 times a day Dx:E11.42. 10/03/19 Inactive ok to substitute with any covered alternative pen needle benzoyl peroxide 10 % topical cleanser RxNorm: 305473 Apply 1 Application Topical QD apply to face, wash rinse and dry once daily (may change to QOD if drying) 08/19/19 022 Inactive (%covered by insurance) #60ml refill 11 dx: acne benzoyl peroxide 10 % topical cleanser RxNorm: 924531 Apply 1 Application Topical QD apply to face, wash rinse and dry once daily (may change to QOD if drying) 08/19/19 22 022 Inactive (%covered by insurance) #60ml refill 11 dx: acne benzoyl peroxide 10 % topical cleanser RxNorm: 812812 Apply 1 Application Topical QD apply to face, wash rinse and dry once daily (may change to QOD if drying) 08/19/19 22 022 Inactive (%covered by insurance) #60ml refill 11 dx: acne Lyrica 50 mg capsule RxNorm: 333295 Take 1 Capsule(s) Oral QAM every morning Take 1 capsule by mouth once daily 08/19/19 22 022 Inactive benzoyl peroxide 10 % topical cleanser RxNorm: 670306 Apply 1 Application Topical QD apply to face, wash rinse and dry once daily (may change to QOD if drying) 08/19/19 22 Inactive (%covered by insurance) #60ml refill 11 dx: acne Lyrica 100 mg capsule RxNorm: 741639 Take 1 Capsule(s) Oral QHS every night at bedtime Take 1 capsule by mouth once daily at bedtime 08/19/19 022 Inactive Lyrica 100 mg capsule RxNorm: 985108 Take 1 Capsule(s) Oral QHS every night at bedtime Take 1 capsule by mouth once daily at bedtime 08/16/19 22 022 Inactive Lyrica 50 mg capsule RxNorm: 786881 Take 1 Capsule(s) Oral QAM every morning Take 1 capsule by mouth once daily 08/16/19 22 022 Inactive Levemir FlexTouch U-100 Insulin 100 unit/mL (3 mL) subcutaneous pen RxNorm: 612232 Inject 86 Unit(s) Subcutaneous BID 08/05/19 22 022 Inactive d/c 83units BID Lyrica 100 mg capsule RxNorm: 308941 Take 1 Capsule(s) Oral QHS every night at bedtime Take 1 capsule by mouth once daily at bedtime 07/14/19 22 022 Inactive Lyrica 50 mg capsule RxNorm: 486229 Take 1 Capsule(s) Oral QAM every morning Take 1 capsule by mouth once daily 07/14/19 22 022 Inactive Levemir FlexTouch U-100 Insulin 100 unit/mL (3 mL) subcutaneous pen RxNorm: 874839 Inject 83 Unit(s) Subcutaneous BID 07/08/19 22 022 Inactive d/c 80units BID Accu-Chek Guide Glucose Meter RxNorm: Use 1 Miscellaneous UD as directed Use glucose meter to monitor blood glucose 4 times daily and as needed. Dx:E11.42 01/20/20 22 No Stop Date Active ok to substitute with any covered alternative meter Accu-Chek Guide Glucose Meter RxNorm: Use 1 Miscellaneous UD as directed Use glucose meter to monitor blood glucose 4 times daily and as needed. Dx:E11.06/05/19 22 022 Inactive ok to substitute with [...] 30 mg tablet,extended release 24 hr RxNorm: 794594 Take 1 Tablet(s) Oral QD 05/05/20 No Stop Date Active hydralazine 50 mg tablet RxNorm: 009784 Take 1 Tablet(s) Oral QID 05/05/20 21 022 Inactive venlafaxine ER 225 mg tablet,extended release 24 hr RxNorm: 746631 Take 1 Tablet(s) Oral QD 05/05/20 21 021 Inactive venlafaxine ER 225 mg tablet,extended release 24 hr RxNorm: 672705 Take 1 Tablet(s) Oral QD 05/05/20 21 022 Inactive hydralazine 50 mg tablet RxNorm: 368775 Take 1 Tablet(s) Oral QID 05/05/20 021 Inactive aspirin 81 mg tablet,delayed release RxNorm: 221524 Take 1 Tablet(s) Oral QD 03/31/20 Inactive Zetia 10 mg tablet RxNorm: 194555 Take 1 Tablet(s) Oral QD 03/31/20 022 Inactive Vitamin D2 1,250 mcg (50,000 unit) capsule RxNorm: 2651532 Take 1 Capsule(s) Oral QW once a week x 12 weeks 03/31/20 Inactive Vitamin D2 1,250 mcg (50,000 unit) capsule RxNorm: 2724024 Take 1 Capsule(s) Oral QW once a week 03/31/20 Inactive Zetia 10 mg tablet RxNorm: 444865 Take 1 Tablet(s) Oral QD 03/31/20 Inactive hydralazine 25 mg tablet RxNorm: 190189 Take 1 Tablet(s) Oral QID 03/31/20 021 Inactive hydralazine 25 mg tablet RxNorm: 342565 Take 1 Tablet(s) Oral QID 03/31/20 021 Inactive hydralazine 10 mg tablet RxNorm: 565821 Take 1 Tablet(s) Oral QID 03/03/20 021 Inactive cephalexin 500 mg tablet RxNorm: 400380 Take 1 Tablet(s) Oral QID 02/27/20 021 Inactive cephalexin 500 mg tablet RxNorm: 717979 Take 1 Tablet(s) Oral QID 02/27/20 021 Inactive lisinopril 40 mg tablet RxNorm: 501483 Take 1 Tablet(s) Oral QD 02/11/20 023 Inactive Eliquis 5 mg tablet RxNorm: 9406010 Take 1 Tablet(s) Oral BID 01/05/20 21 022 Inactive Eliquis 5 mg tablet RxNorm: 9993161 Take 2 Tablet(s) Oral QD 01/01/20 21 021 Inactive Lyrica 50 mg capsule RxNorm: 612435 Take 1 Capsule(s) Oral QAM every morning 12/24/19 21 021 Inactive Lyrica 100 mg capsule RxNorm: 141718 Take 1 Capsule(s) Oral QHS every night at bedtime 12/24/19 21 021 Inactive clotrimazole 1 % topical cream RxNorm: 562074 Apply to right foot and toes Topical BID 12/04/19 21 023 Inactive metoprolol succinate ER 200 mg tablet,extended release 24 hr RxNorm: 863230 Take 1 Tablet(s) Oral QD 12/04/19 21 023 Inactive ciprofloxacin 500 mg tablet RxNorm: 117874 Take 1 Tablet(s) Oral QD 11/30/19 21 021 Inactive DX ofloxacin otic drops Accu-Chek Guide test strips RxNorm: USE 1 TO CHECK GLUCOSE 4 TIMES DAILY AND NEEDED 11/15/19 21 023 Inactive Blood Glucose Test strips RxNorm: Use 1 Test Strip QID at PRN 11/05/19 21 023 Inactive E11.42 lisinopril 30 mg tablet RxNorm: 083002 Take 1 Tablet(s) Oral QD 10/30/19 021 Inactive lisinopril 20 mg tablet RxNorm: 952350 Take 1 Tablet(s) Oral QD 10/23/19 21 021 Inactive lisinopril 20 mg tablet RxNorm: 591212 Take 1 Tablet(s) Oral QD 10/23/19 21 021 Inactive lisinopril 10 mg tablet RxNorm: 501232 Take 1 Tablet(s) Oral QD 10/02/19 21 021 Inactive icosapent ethyl 1 gram capsule RxNorm: 9476029 Take 2 Capsule(s) (2 gm) Oral BID with meals 09/12/19 21 022 Inactive Okay to dispense one 2gm tab if you have that available. icosapent ethyl 1 gram capsule RxNorm: 2189675 Take 2 Capsule(s) Oral BID 09/12/19 21 021 Inactive Okay to dispense one 2gm tab if you have that available. amlodipine 10 mg tablet RxNorm: 654093 Take 1 Tablet(s) Oral QD 09/04/19 022 Inactive aspirin 81 mg tablet,delayed release RxNorm: 065121 Take 1 Tablet(s) Oral QD 09/04/19 021 Inactive Levemir FlexTouch U-100 Insulin 100 unit/mL (3 mL) subcutaneous pen RxNorm: 187550 Inject 150 Unit(s) Subcutaneous BID 09/04/19 022 Inactive venlafaxine ER 150 mg tablet,extended release 24 hr RxNorm: 967445 Take 1 Tablet(s) Oral QD 09/04/19 21 021 Inactive clotrimazole-betame thasone 1 %-0.05 % topical cream RxNorm: 179397 Apply to rash on red area on left abdomen/chest Topical BID 08/10/19 21 Inactive amlodipine 5 mg tablet RxNorm: 706862 Take 1 Tablet(s) Oral QD 07/31/19 Inactive cephalexin 500 mg tablet RxNorm: 535131 Take 1 Tablet(s) Oral BID BID - Twice Daily 07/31/19 021 Inactive Start 08/01/20 pantoprazole 40 mg tablet,delayed release RxNorm: 534167 Take 1 Tablet(s) Oral QAM every morning 07/08/19 022 Inactive senna 8.6 mg tablet RxNorm: 960579 Take 1 Tablet(s) Oral QD 07/08/19 022 Inactive pravastatin 80 mg tablet RxNorm: 041936 Take 1 Tablet(s) Oral QHS every night at bedtime 07/08/19 022 Inactive carbamazepine 200 mg tablet RxNorm: 830150 Take 1 Tablet(s) Oral BID 07/08/19 022 Inactive torsemide 20 mg tablet RxNorm: 091607 Take 1 Tablet(s) Oral QD 07/08/19 21 023 Inactive clopidogrel 75 mg tablet RxNorm: 819465 Take 1 Tablet(s) Oral QD 07/08/19 021 Inactive Blood Glucose Test strips RxNorm: Use 1 Test Strip QID at PRN 07/08/19 21 021 Inactive E11.42 Novolog Flexpen U-100 Insulin aspart 100 unit/mL (3 mL) subcutaneous RxNorm: 6533714 Administer per sliding scale Milliliter(s) Subcutaneous TID 151-200: 10 u; 201-250: 20 u; 251-300: 30 u; 301-350: 40 u; 351-400: 50 u. 07/08/19 022 Inactive lisinopril 5 mg tablet RxNorm: 793851 Take 1 Tablet(s) Oral QD 07/08/19 21 021 Inactive Novolog Flexpen U-100 Insulin aspart 100 unit/mL (3 mL) subcutaneous RxNorm: 3941558 Inject 85 Unit(s) Subcutaneous TID 07/08/19 022 Inactive clotrimazole 1 % topical cream RxNorm: 512044 Apply to bilateral groin areas Topical BID 07/08/19 Inactive metoprolol succinate ER 200 mg tablet,extended release 24 hr RxNorm: 543466 Take 1 Tablet(s) Oral QD 07/08/19 21 021 Inactive Vitamin D3 25 mcg (1,000 unit) tablet RxNorm: 577556 Take 1 Tablet(s) Oral QD 07/08/19 021 Inactive isosorbide dinitrate 30 mg tablet RxNorm: 577876 Take 1 Tablet(s) Oral QD 07/08/19 21 021 Inactive Levemir FlexTouch U-100 Insulin 100 unit/mL (3 mL) subcutaneous pen RxNorm: 571445 Inject 140 Unit(s) Subcutaneous BID 07/08/19 021 Inactive venlafaxine 75 mg tablet RxNorm: 964322 Take 1 Tablet(s) Oral QD 07/08/19 Inactive acetaminophen 500 mg tablet RxNorm: 847355 Take 1 Tablet(s) Oral TID as needed for headache 06/18/19 21 Inactive acetaminophen 500 mg tablet RxNorm: 153745 Take 1 Tablet(s) Oral TID as needed for headache 06/18/19 21 021 Inactive Lyrica 100 mg capsule RxNorm: 495482 Take 1 Capsule(s) Oral QHS every night at bedtime 06/11/19 21 021 Inactive Lyrica 50 mg capsule RxNorm: 132194 Take 1 Capsule(s) Oral QAM every morning 06/10/19 21 021 Inactive hydrocortisone 2.5 % topical cream RxNorm: 127307 Apply to bilateral groin creases Topical BID 05/15/20 20 021 Inactive clotrimazole 1 % topical cream RxNorm: 981459 Apply to bilateral groin areas Topical BID 05/15/20 20 021 Inactive Lyrica 50 mg capsule RxNorm: 932259 Take 1 Capsule(s) Oral QAM every morning 05/14/20 20 Inactive Lyrica 100 mg capsule RxNorm: 694488 Take 1 Capsule(s) Oral QHS every night [...] Inactive Nystop 100,000 unit/gram topical powder RxNorm: 201812 Apply to abd folds, under breasts and L side of groin Topical BID x 14 days, then BID PRN 04/08/20 20 021 Inactive dx: yeast dermatitis Lyrica 100 mg capsule RxNorm: 791325 Take 1 Capsule(s) Oral QHS every night at bedtime 03/13/20 20 020 Inactive Lyrica 50 mg capsule RxNorm: 492456 Take 1 Capsule(s) Oral QAM every morning 03/13/20 20 Inactive ketoconazole 2 % shampoo RxNorm: 257138 Apply Topical two times a week with showers 03/11/20 20 Inactive cholecalciferol (vitamin D3) 50 mcg (2,000 unit) tablet RxNorm: 521340 Take 1 Tablet(s) Oral QD 03/11/20 20 Inactive Zetia 10 mg tablet RxNorm: 449859 Take 1 Tablet(s) Oral QD 03/07/20 20 Inactive Zetia 10 mg tablet RxNorm: 041079 Take 1 Tablet(s) Oral QD 03/07/20 20 Inactive Lyrica 50 mg capsule RxNorm: 919053 Take 1 Capsule(s) Oral QAM every morning 02/15/20 20 Inactive Lyrica 100 mg capsule RxNorm: 196263 Take 1 Capsule(s) Oral QHS every night at bedtime 02/15/20 20 Inactive Lyrica 100 mg capsule RxNorm: 463330 Take 1 Capsule(s) Oral QHS every night at bedtime 02/15/20 20 Inactive Lyrica 50 mg capsule RxNorm: 715220 Take 1 Capsule(s) Oral QAM every morning 02/15/20 20 Inactive venlafaxine ER 75 mg capsule,extended release 24 hr RxNorm: 375685 Take 3 Capsule(s) Oral QD 06/12/2021 Activepolyethylene glycol 3350 17 gram/dose oral powderRxNorm: 183787Xefg 17=1 capful Gram(s) Oral BID as needed mix with 4-8oz of hhqpxb2306/12/2021ctive Levemir FlexTouch U-100 Insulin 100 unit/mL (3 mL) subcutaneous penRxNorm: 913316Jtshhm 80 Unit(s) Subcutaneous BID/Inactiveloperamide 2 mg capsuleRxNorm: 246465Lovd 1 Capsule(s) Oral QID as yzhptv3206/12/2021ctive Novolog Flexpen U-100 Insulin aspart 100 unit/mL (3 mL) subcutaneousRxNorm: 4268754Ikeybv 30 Unit(s) Subcutaneous TID with mealsInactive Medication [...] CVX: 115 2008 Procedures Procedure Codes Date TRIM NAIL(S) CPT-4: G0127 06/09/2022 Reason For Visit No Reason For Visit data Encounters Encounter Performer Location Location Address Codes Cristiano e ([id number]) Home or Residence Vi sit Est Pt - Moderate Level, 40 mins Diagnosis: Candidiasis, intertrigo[ICD10: B37.2] Diagnosis: Type 2 diabetes mellitus with diabetic polyneuropathy, with long-term current use of insulin[ICD10: E11.42] Diagnosis: Hyperlipidemia associated with type 2 diabetes mellitus[ICD10: E11.69] Diagnosis: Stage 2 chronic 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[ICD10: E11.22] Diagnosis: Onychogryposis[ICD10: L60.2][facility] [place] [address] [place] [id number]-1: [id number] Plan of Care Planned Activity Notes Codes Status Date Referral: [facility] WPtel: [address] [id number] USReferralRecords Xmdkrido64/08/2023Patient Education: Patient Medication CnkmekdYvwxpwypo85/24/2023atient Education: Influenza VaccineCompleted 06/09/2022ppointment: Rosalina Shirley WPtel: [address] [facility] [address] [facility] [address] [facility] [address] [id number] [id number]/U02Referral: [facility] [address] [id number] MNUuftbgwjItfbhcrwf97/12/2022Referral: General CardiologyReferralCompleted 01/03/2021eferral: General PsychologistReferralClosed Instructions Comment Date Leonid is a Male being seen living at [facility]. Initial BPS visit 01/2020. PMHx including DMII, CAD w/ 5 stents, Depression, Seizure Disorder and CKD stage 3. He moved into [facility] in 12/2019 but after a hospitalization 05/2021 he moved to the [facility] to have closer nursing attention. Sister Jyotsna involved in his care cell# [phone] Guardian: Don (rosalina met in person 09/01/21), now has Lexii (same group as don)Lab Schedule: * 10/06/2022 Candidiasis, intertrigo will add diflucan in pulse dosing x 3 Onychogryposis toenails trimmed today Diabetes BS irratic, not as high with change in PM dosing .06/09/2022
--- OUTSIDE RECORDS SUMMARY | 2022-07-17 18:00 | XMS_ITS | CCD ---
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 Team Leader Surgery Name Role Phone Tapan Shirley PA-C Primary Care Provider Unavailabl e Tapan Shirley PA-C Chronic Care Management Unavaila ble Summary Purpose DataExchange Insurance Providers Payer name Policy type / Coverage type Covered green party ID Effective Begin Date Effective End Date [place] B [id number] Unknown Unknown [place] B [id number] Unknown Unknown Family history Sister Brittany Suggs Diagnosis Age At Onset No Family Disease Entered N/A Runs in the family Diagnosis Age At Onset No Known Diseases N/A Sister Blanka Mcduffie Diagnosis Age At Onset No Family Disease Entered N/A Social History Social History Element Codes Description Effec tive Dates Marital status Unknown Single 10/07/2021 Living arrangements Unknown [facility] 09/03/[address]: 9272898 Non-Smoker / No History of Smoking 09/02/[address]: 399044947 No Alcohol Consum ption 09/02/2020 Allergies, Adverse Reactions, Alerts Substance Reaction Codes Entered Date Inactivated Date Status LISINOPRIL RxNorm: 1946340No Inactive DateActiveMetformin UWpEcausde52/28/2020No Inactive DateActive Problems Condition Codes Effective Dates Condition St atus Candidiasis, intertrigo ICD-10: B37.2 ICD-9: 112.302/ctiveHyperlipidemia associated with type 2 diabetes mellitusICD-10: E11.69 ICD-9: 250.8002ctiveHypertensive heart disease without heart failure ICD-10: I11.9 ICD-9: 402.9002ctivePre-op evaluationICD-10: Z01.818 ICD-9: V72.8402ctiveStage 2 chronic 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ICD-10: E11.22 ICD-9: 250.4002ctiveType 2 diabetes mellitus with diabetic polyneuropathy, with long-term current use of insulinICD-10: E11.42 ICD-9: 250.6002/ctiveHigh risk medication useICD-10: Z79.899 ICD-9: V58.6902/ctiveMajor depression, recurrentICD-10: F33.9 ICD-9: 296.3002/ctiveOnychogryposisICD-10: L60.2 ICD-9: 703.801/ctiveVitamin D deficiencyICD-10: E55.9 ICD-9: 268.912/ctiveCoronary artery disease involving grindstone coronary artery of grindstone heart, angina presence unspecifiedICD-10: I25.10 ICD-9: 414.0111/ctiveShortness [...] vascular disease)ICD-10: I73.9 ICD-9: 443.909/2ActiveDepressionICD-10: F32.9 ICD-9: 49542/2ResolvedDVT (deep venous thrombosis)ICD-10: I82.409 ICD-9: 453.4009/esolvedEncounter for immunizationICD-10: Z23 ICD-9: V03.8909/2ResolvedLong term (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 insulinICD-10: Z79.4 092ResolvedMuscular painICD-10: M79.10 ICD-9: 729.109/esolvedPain of right heelICD-10: M79.671 ICD-9: 729.509/esolvedDandruff in adultICD-10: L21.0 ICD-9: 690.1808/ctiveHypertension associated with diabetesICD-10: E11.59 ICD-9: 250.8008/2ResolvedHistory of anemia due to CKDICD-10: N18.9 ICD-9: 585.907/2ActiveSecondary hypertensionICD-10: I15.9 ICD-9: 405.9907/2ActiveStage 2 chronic kidney diseaseICD-10: N18.2 ICD-9: 585.207/2ActiveGout due to renal impairmentICD-10: M10.30 ICD-9: 274.1006/2ActivePreventative health careICD-10: Z00.00 ICD-9: V70.006/2ActiveLower extremity edemaICD-10: R60.0 ICD-9: 782.305/2ActiveAmputated toe of right footICD-10: S98.131A ICD-9: 895.004/2ActiveLearning disabilityICD-10: F81.9 ICD-9: 315.212/1ActiveSkin tagICD-10: L91.8 ICD-9: 701.911/1ActiveCallus of heelICD-10: L84 ICD-9: 61468/ctiveImpacted cerumen, left earICD-10: H61.22 ICD-9: 380.408/ctiveContact with and (suspected) exposure to covid-19 ICD-10: Z20.822 ICD-9: V01.7908/esolvedOther infective acute otitis externa of left ear ICD-10: H60.392 ICD-9: 380.1008/esolvedScrotal skin lesionICD-10: N50.9 ICD-9: 608.908/esolvedTinea pedisICD-10: B35.3 ICD-9: 110.408esolvedAnemia due to stage 3b chronic kidney diseaseICD- 10: N18.32 ICD-9: 285.2105/esolvedChronic kidney disease, stage 3 unspecifiedICD- 10: N18.3004esolvedContact with and (suspected) exposure to other viral communicable diseasesICD-10: Z20.828 ICD-9: V01.7902esolvedHyperhidrosis of palmsICD-10: L74.512 ICD-9: 705.9440LqxasuMkfgagtrXwxtyhh69/28/2020ActiveDiabetes mellitus Type 0Okuuhwb86/28/2020ActiveAnemia in chronic kidney diseaseICD-10: D63.1 02/12/2020ResolvedHyperlipidemia, unspecifiedICD-10: E78.509Resolved Medications Medication Codes Instructions Start Date Stop Date Status Fill Instructions Lyrica 150 mg capsule RxNorm: 035425 Take 1 Capsule(s) Oral QHS every night at bedtime 07/19/19 023 Inactive d/c 100mg dose Diflucan 150 mg tablet RxNorm: 226399 Take 1 Tablet(s) Oral QD repeat on day 3 and 6 07/19/19 23 023 Inactive pregabalin 100 mg capsule RxNorm: 275793 Take 1 Capsule(s) Oral QAM every morning 07/19/19 23 023 Inactive gatifloxacin 0.5 % eye drops RxNorm: 434000 Instill 1 Drop(s) as directed TID Instill 1 drop in to affected eye(s) starting 1 day prior to surgery and continue until gone (do not exceed 4 weeks). 07/13/19 23 023 Inactive carvedilol 25 mg tablet RxNorm: 564500 2 Tablet(s) Oral BID 07/13/19 023 Inactive Humulin R Regular U-100 Insulin 100 unit/mL injection solution RxNorm: 973140 85 Unit(s) Injection TID 07/13/19 23 023 Inactive ketorolac 0.5 % eye drops RxNorm: 508497 Instill 1 Drop(s) as directed QID Instill 1 drop into affected eye(s) 4 times daily starting 1 day prior to surgery and continue until gone (do not exceed 4 weeks). 07/13/19 023 Inactive Diflucan 150 mg tablet RxNorm: 890489 Take 1 Tablet(s) Oral QD repeat on day 3 and 6 06/30/19 23 023 Inactive Accu-Chek Guide test strips RxNorm: Use 1 Test Strip QID Use 1 test strip to monitor blood glucose 4 times daily and as needed. Dx:E11.42. 06/23/19 023 Inactive ok to substitute with any covered alternative test strip dextromethorphan-gu aifenesin 10 mg-100 mg/5 mL oral liquid RxNorm: 742008 Take 10 Milliliter(s) Oral every 4 hours as needed for cough 06/19/19 023 Inactive dextromethorphan-gu aifenesin 10 mg-100 mg/5 mL oral liquid RxNorm: 088593 Take 10 Milliliter(s) Oral every 4 hours as needed for cough 06/19/19 23 023 Inactive Lyrica 150 mg capsule RxNorm: 759282 Take 1 Capsule(s) Oral QHS every night at bedtime 06/18/19 23 023 Inactive d/c 100mg dose aripiprazole 15 mg tablet RxNorm: 826705 1/2 TAB (7.5MG) ORALLY DAILY (DX:MAJOR DEPRESSIVE DISORDER) 06/05/19 023 Inactive pregabalin 100 mg capsule RxNorm: 751853 1 Capsule(s) Oral QAM every morning 06/02/19 23 023 Inactive Banophen 50 mg capsule RxNorm: 1546286 Take 1 Capsule(s) Oral Q6H every 6 hours as needed 05/19/19 No Stop Date Active Novolog Flexpen U-100 Insulin aspart 100 unit/mL (3 mL) subcutaneous RxNorm: 9265107 Inject 10 Unit(s) Subcutaneous QHS every night at bedtime with nighttime snack 04/08/20 022 Inactive Novolog Flexpen U-100 Insulin aspart 100 unit/mL (3 mL) subcutaneous RxNorm: 1270924 Inject 42 Unit(s) Subcutaneous TID in addition to sliding scale 04/08/20 022 Inactive d/c 36u albuterol sulfate HFA 90 mcg/actuation aerosol inhaler RxNorm: 1368303 Take 2 Puff(s) Inhalation Q4H every four hours as needed as needed for SOB, cough, or wheezing 04/07/20 030 Active Banophen 50 mg capsule RxNorm: 3163500 Take 1 Capsule(s) Oral Q6H every 6 hours as needed 04/06/20 023 Inactive diphenhydramine 50 mg tablet RxNorm: 6430995 Take 1 Tablet(s) Oral Q6H every 6 hours as needed 04/06/20 22 022 Inactive diphenhydramine 50 mg tablet RxNorm: 6536671 1 Tablet(s) Oral Q6H every 6 hours as needed 04/06/20 22 022 Inactive Abilify 15 mg tablet RxNorm: 817094 1/2 Tablet(s) Oral QD 03/10/20 023 Inactive Shingrix (PF) 50 mcg/0.5 mL intramuscular suspension, kit RxNorm: 5500220 Administer 1/2 Milliliter(s) Intramuscular QD one time shingrix step 2 ( step 1 given 11/04/21) WITH needle - Nursing please administer upon arrival and once administered 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, carburetor specialist, 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, and lot# so we can update [facility] 02/18/20 22 022 Inactive dispense with needle Shingrix (PF) 50 mcg/0.5 mL intramuscular suspension, kit RxNorm: 0146410 Administer 1/2 Milliliter(s) Intramuscular QD one time shingrix step 2 ( step 1 given 11/04/21) WITH needle - Nursing please administer upon arrival and once administered 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, carburetor specialist, 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, and lot# so we can update [facility] 02/18/20 22 022 Inactive dispense with needle acetaminophen 500 mg tablet RxNorm: 667839 Take 1 Tablet(s) Oral TID 01/08/20 22 023 Active d/c PRN order polyethylene glycol 3350 17 gram/dose oral powder RxNorm: 305854 Take 17=1 capful Gram(s) Oral QD mix with 4-8oz of liquid 01/08/20 22 023 Active take this in addition to BID prn order Lyrica 100 mg capsule RxNorm: 007182 Take 1 Capsule(s) Oral QAM every morning 01/08/20 22 022 Inactive d/c 50mg dose Lyrica 150 mg capsule RxNorm: 444923 Take 1 Capsule(s) Oral QHS every night at bedtime 01/08/20 22 023 Inactive d/c 100mg dose Abilify 5 mg tablet RxNorm: 410738 Take 1 Tablet(s) Oral QD take 1 tab po QD #30 refill 5 dx: MDD 12/12/19 22 022 Inactive Abilify 5 mg tablet RxNorm: 846270 Take 1 Tablet(s) Oral QD take 1 tab po QD #30 refill 5 dx: MDD 12/12/19 22 022 Inactive chlorthalidone 25 mg tablet RxNorm: 621220 Take 1 Tablet(s) Oral QAM every morning 12/10/19 22 023 Active Novolog Flexpen U-100 Insulin aspart 100 unit/mL (3 mL) subcutaneous RxNorm: 6295109 Inject 42 Unit(s) Subcutaneous TID in addition to sliding scale 12/10/19 22 022 Inactive d/c 36u pregabalin 50 mg capsule RxNorm: 559970 Take 1 Capsule(s) Oral QAM every morning 11/12/19 22 Inactive tetanus-diphtheria toxoids-Td 2 Lf unit-2 Lf unit/0.5 mL IM suspension RxNorm: 139 Take 0.5 Miscellaneous Intramuscular 11/12/19 22 Inactive need tdap - nursing to administer upon arrival pregabalin 50 mg capsule RxNorm: 337230 Take 1 Capsule(s) Oral QAM every morning 10/16/19 22 022 Inactive pregabalin 50 mg capsule RxNorm: 979651 Take 1 Capsule(s) Oral QAM every morning 10/16/19 22 022 Inactive pregabalin 50 mg capsule RxNorm: 238096 1 Capsule(s) Oral QAM every morning 10/15/19 22 022 Inactive Shingrix (PF) 50 mcg/0.5 mL intramuscular suspension, kit RxNorm: 1300851 Administer 1/2 Milliliter(s) Intramuscular one time Nursing please administer upon arrival and once administered 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, carburetor specialist, 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 10/09/19 22 022 Inactive shingrix step 1 Shingrix (PF) 50 mcg/0.5 mL intramuscular suspension, kit RxNorm: 5937106 Administer 1/2 Milliliter(s) Intramuscular one time Nursing please administer upon arrival and once administered 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, carburetor specialist, 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 10/09/19 22 022 Inactive shingrix step 1 cholecalciferol (vitamin D3) 1,250 mcg (50,000 unit) capsule RxNorm: 663609 Take 1 Capsule(s) Oral QW once a [...] aspart 100 unit/mL (3 mL) subcutaneous RxNorm: 3217552 Inject 10 Unit(s) Subcutaneous QHS every night at bedtime with nighttime snack 10/08/19 22 Inactive Shingrix (PF) 50 mcg/0.5 mL intramuscular suspension, kit RxNorm: 2091066 ADMINISTER 2-DOSE SERIES PER CDC GUIDELINES 10/08/19 22 Active Shingrix (PF) 50 mcg/0.5 mL intramuscular suspension, kit RxNorm: 0738436 ADMINISTER 2-DOSE SERIES PER CDC GUIDELINES 10/08/19 22 Inactive Novolog Flexpen U-100 Insulin aspart 100 unit/mL (3 mL) subcutaneous RxNorm: 9512290 Inject 36 Unit(s) Subcutaneous TID in addition to sliding scale 10/08/19 22 Inactive Novofine Autocover 30 gauge x 1/3 needle RxNorm: Use 1 Miscellaneous UD as directed Use 1 needle as directed to administer insulin 5 times a day Dx:E11.42. 10/03/19 Inactive ok to substitute with any covered alternative pen needle benzoyl peroxide 10 % topical cleanser RxNorm: 993223 Apply 1 Application Topical QD apply to face, wash rinse and dry once daily (may change to QOD if drying) 08/19/19 22 022 Inactive (%covered by insurance) #60ml refill 11 dx: acne benzoyl peroxide 10 % topical cleanser RxNorm: 132768 Apply 1 Application Topical QD apply to face, wash rinse and dry once daily (may change to QOD if drying) 08/19/19 22 022 Inactive (%covered by insurance) #60ml refill 11 dx: acne benzoyl peroxide 10 % topical cleanser RxNorm: 215461 Apply 1 Application Topical QD apply to face, wash rinse and dry once daily (may change to QOD if drying) 08/19/19 22 022 Inactive (%covered by insurance) #60ml refill 11 dx: acne Lyrica 50 mg capsule RxNorm: 404962 Take 1 Capsule(s) Oral QAM every morning Take 1 capsule by mouth once daily 08/19/19 22 022 Inactive benzoyl peroxide 10 % topical cleanser RxNorm: 080480 Apply 1 Application Topical QD apply to face, wash rinse and dry once daily (may change to QOD if drying) 08/19/19 22 022 Inactive (%covered by insurance) #60ml refill 11 dx: acne Lyrica 100 mg capsule RxNorm: 829186 Take 1 Capsule(s) Oral QHS every night at bedtime Take 1 capsule by mouth once daily at bedtime 08/19/19 22 022 Inactive Lyrica 100 mg capsule RxNorm: 914588 Take 1 Capsule(s) Oral QHS every night at bedtime Take 1 capsule by mouth once daily at bedtime 08/16/19 22 022 Inactive Lyrica 50 mg capsule RxNorm: 338308 Take 1 Capsule(s) Oral QAM every morning Take 1 capsule by mouth once daily 08/16/19 22 022 Inactive Levemir FlexTouch U-100 Insulin 100 unit/mL (3 mL) subcutaneous pen RxNorm: 564660 Inject 86 Unit(s) Subcutaneous BID 08/05/19 22 022 Inactive d/c 83units BID Lyrica 100 mg capsule RxNorm: 543443 Take 1 Capsule(s) Oral QHS every night at bedtime Take 1 capsule by mouth once daily at bedtime 07/14/19 022 Inactive Lyrica 50 mg capsule RxNorm: 143238 Take 1 Capsule(s) Oral QAM every morning Take 1 capsule by mouth once daily 07/14/19 22 022 Inactive Levemir FlexTouch U-100 Insulin 100 unit/mL (3 mL) subcutaneous pen RxNorm: 636294 Inject 83 Unit(s) Subcutaneous BID 07/08/19 22 [...] 30 mg tablet,extended release 24 hr RxNorm: 420672 Take 1 Tablet(s) Oral QD 05/05/20 No Stop Date Active hydralazine 50 mg tablet RxNorm: 542734 Take 1 Tablet(s) Oral QID 05/05/20 21 022 Inactive venlafaxine ER 225 mg tablet,extended release 24 hr RxNorm: 789230 Take 1 Tablet(s) Oral QD 05/05/20 21 021 Inactive venlafaxine ER 225 mg tablet,extended release 24 hr RxNorm: 946561 Take 1 Tablet(s) Oral QD 05/05/20 022 Inactive hydralazine 50 mg tablet RxNorm: 049620 Take 1 Tablet(s) Oral QID 05/05/20 21 Inactive aspirin 81 mg tablet,delayed release RxNorm: 302056 Take 1 Tablet(s) Oral QD 03/31/20 022 Inactive Zetia 10 mg tablet RxNorm: 027563 Take 1 Tablet(s) Oral QD 03/31/20 Inactive Vitamin D2 1,250 mcg (50,000 unit) capsule RxNorm: 6826539 Take 1 Capsule(s) Oral QW once a week x 12 weeks 03/31/20 Inactive Vitamin D2 1,250 mcg (50,000 unit) capsule RxNorm: 8660591 Take 1 Capsule(s) Oral QW once a week 03/31/20 Inactive Zetia 10 mg tablet RxNorm: 908342 Take 1 Tablet(s) Oral QD 03/31/20 021 Inactive hydralazine 25 mg tablet RxNorm: 605772 Take 1 Tablet(s) Oral QID 03/31/20 21 021 Inactive hydralazine 25 mg tablet RxNorm: 929909 Take 1 Tablet(s) Oral QID 03/31/20 021 Inactive hydralazine 10 mg tablet RxNorm: 271322 Take 1 Tablet(s) Oral QID 03/03/20 021 Inactive cephalexin 500 mg tablet RxNorm: 740558 Take 1 Tablet(s) Oral QID 02/27/20 021 Inactive cephalexin 500 mg tablet RxNorm: 005812 Take 1 Tablet(s) Oral QID 02/27/20 021 Inactive lisinopril 40 mg tablet RxNorm: 852234 Take 1 Tablet(s) Oral QD 02/11/20 21 023 Inactive Eliquis 5 mg tablet RxNorm: 7751978 Take 1 Tablet(s) Oral BID 01/05/20 21 022 Inactive Eliquis 5 mg tablet RxNorm: 8067546 Take 2 Tablet(s) Oral QD 01/01/20 21 021 Inactive Lyrica 50 mg capsule RxNorm: 944553 Take 1 Capsule(s) Oral QAM every morning 12/24/19 21 021 Inactive Lyrica 100 mg capsule RxNorm: 812381 Take 1 Capsule(s) Oral QHS every night at bedtime 12/24/19 21 021 Inactive clotrimazole 1 % topical cream RxNorm: 349038 Apply to right foot and toes Topical BID 12/04/19 21 023 Inactive metoprolol succinate ER 200 mg tablet,extended release 24 hr RxNorm: 834176 Take 1 Tablet(s) Oral QD 12/04/19 21 023 Inactive ciprofloxacin 500 mg tablet RxNorm: 643599 Take 1 Tablet(s) Oral QD 11/30/19 21 021 Inactive DX ofloxacin otic drops Accu-Chek Guide test strips RxNorm: USE 1 TO CHECK GLUCOSE 4 TIMES DAILY AND NEEDED 11/15/19 21 023 Inactive Blood Glucose Test strips RxNorm: Use 1 Test Strip QID at PRN 11/05/19 21 023 Inactive E11.42 lisinopril 30 mg tablet RxNorm: 564249 Take 1 Tablet(s) Oral QD 10/30/19 021 Inactive lisinopril 20 mg tablet RxNorm: 809608 Take 1 Tablet(s) Oral QD 10/23/19 021 Inactive lisinopril 20 mg tablet RxNorm: 411489 Take 1 Tablet(s) Oral QD 10/23/19 21 021 Inactive lisinopril 10 mg tablet RxNorm: 473282 Take 1 Tablet(s) Oral QD 10/02/19 21 021 Inactive icosapent ethyl 1 gram capsule RxNorm: 8706206 Take 2 Capsule(s) (2 gm) Oral BID with meals 09/12/19 21 022 Inactive Okay to dispense one 2gm tab if you have that available. icosapent ethyl 1 gram capsule RxNorm: 0077958 Take 2 Capsule(s) Oral BID 09/12/19 021 Inactive Okay to dispense one 2gm tab if you have that available. amlodipine 10 mg tablet RxNorm: 487118 Take 1 Tablet(s) Oral QD 09/04/19 022 Inactive aspirin 81 mg tablet,delayed release RxNorm: 642890 Take 1 Tablet(s) Oral QD 09/04/19 021 Inactive Levemir FlexTouch U-100 Insulin 100 unit/mL (3 mL) subcutaneous pen RxNorm: 190929 Inject 150 Unit(s) Subcutaneous BID 09/04/19 21 022 Inactive venlafaxine ER 150 mg tablet,extended release 24 hr RxNorm: 659741 Take 1 Tablet(s) Oral QD 09/04/19 021 Inactive clotrimazole-betame thasone 1 %-0.05 % topical cream RxNorm: 016427 Apply to rash on red area on left abdomen/chest Topical BID 08/10/19 Inactive amlodipine 5 mg tablet RxNorm: 646972 Take 1 Tablet(s) Oral QD 07/31/19 021 Inactive cephalexin 500 mg tablet RxNorm: 607654 Take 1 Tablet(s) Oral BID BID - Twice Daily 07/31/19 021 Inactive Start 08/01/20 pantoprazole 40 mg tablet,delayed release RxNorm: 062652 Take 1 Tablet(s) Oral QAM every morning 07/08/19 022 Inactive senna 8.6 mg tablet RxNorm: 459960 Take 1 Tablet(s) Oral QD 07/08/19 022 Inactive pravastatin 80 mg tablet RxNorm: 115313 Take 1 Tablet(s) Oral QHS every night at bedtime 07/08/19 022 Inactive carbamazepine 200 mg tablet RxNorm: 750288 Take 1 Tablet(s) Oral BID 07/08/19 022 Inactive torsemide 20 mg tablet RxNorm: 925862 Take 1 Tablet(s) Oral QD 07/08/19 023 Inactive clopidogrel 75 mg tablet RxNorm: 191761 Take 1 Tablet(s) Oral QD 07/08/19 21 Inactive Blood Glucose Test strips RxNorm: Use 1 Test Strip QID at PRN 07/08/19 21 Inactive E11.42 Novolog Flexpen U-100 Insulin aspart 100 unit/mL (3 mL) subcutaneous RxNorm: 8084529 Administer per sliding scale Milliliter(s) Subcutaneous TID 151-200: 10 u; 201-250: 20 u; 251-300: 30 u; 301-350: 40 u; 351-400: 50 u. 07/08/19 21 022 Inactive lisinopril 5 mg tablet RxNorm: 014797 Take 1 Tablet(s) Oral QD 07/08/19 Inactive Novolog Flexpen U-100 Insulin aspart 100 unit/mL (3 mL) subcutaneous RxNorm: 6858462 Inject 85 Unit(s) Subcutaneous TID 07/08/19 Inactive clotrimazole 1 % topical cream RxNorm: 852667 Apply to bilateral groin areas Topical BID 07/08/19 Inactive metoprolol succinate ER 200 mg tablet,extended release 24 hr RxNorm: 629621 Take 1 Tablet(s) Oral QD 07/08/19 Inactive Vitamin D3 25 mcg (1,000 unit) tablet RxNorm: 382217 Take 1 Tablet(s) Oral QD 07/08/19 Inactive isosorbide dinitrate 30 mg tablet RxNorm: 434534 Take 1 Tablet(s) Oral QD 07/08/19 Inactive Levemir FlexTouch U-100 Insulin 100 unit/mL (3 mL) subcutaneous pen RxNorm: 478720 Inject 140 Unit(s) Subcutaneous BID 07/08/19 Inactive venlafaxine 75 mg tablet RxNorm: 931657 Take 1 Tablet(s) Oral QD 07/08/19 Inactive acetaminophen 500 mg tablet RxNorm: 832943 Take 1 Tablet(s) Oral TID as needed for headache 06/18/19 Inactive acetaminophen 500 mg tablet RxNorm: 501388 Take 1 Tablet(s) Oral TID as needed for headache 06/18/19 21 021 Inactive Lyrica 100 mg capsule RxNorm: 397444 Take 1 Capsule(s) Oral QHS every night at bedtime 06/11/19 21 021 Inactive Lyrica 50 mg capsule RxNorm: 519637 Take 1 Capsule(s) Oral QAM every morning 06/10/19 21 021 Inactive hydrocortisone 2.5 % topical cream RxNorm: 199664 Apply to bilateral groin creases Topical BID 05/15/20 20 021 Inactive clotrimazole 1 % topical cream RxNorm: 072842 Apply to bilateral groin areas Topical BID 05/15/20 20 021 Inactive Lyrica 50 mg capsule RxNorm: 297625 Take 1 Capsule(s) Oral QAM every morning 05/14/20 20 020 Inactive Lyrica 100 mg capsule RxNorm: 339090 Take 1 Capsule(s) Oral QHS every night [...] Inactive Nystop 100,000 unit/gram topical powder RxNorm: 979760 Apply to abd folds, under breasts and L side of groin Topical BID x 14 days, then BID PRN 04/08/20 20 021 Inactive dx: yeast dermatitis Lyrica 100 mg capsule RxNorm: 359261 Take 1 Capsule(s) Oral QHS every night at bedtime 03/13/20 20 Inactive Lyrica 50 mg capsule RxNorm: 182350 Take 1 Capsule(s) Oral QAM every morning 03/13/20 20 Inactive ketoconazole 2 % shampoo RxNorm: 065549 Apply Topical two times a week with showers 03/11/20 Inactive cholecalciferol (vitamin D3) 50 mcg (2,000 unit) tablet RxNorm: 652485 Take 1 Tablet(s) Oral QD 03/11/20 20 Inactive Zetia 10 mg tablet RxNorm: 949260 Take 1 Tablet(s) Oral QD 03/07/20 20 Inactive Zetia 10 mg tablet RxNorm: 930708 Take 1 Tablet(s) Oral QD 03/07/20 20 Inactive Lyrica 50 mg capsule RxNorm: 992761 Take 1 Capsule(s) Oral QAM every morning 02/15/20 20 Inactive Lyrica 100 mg capsule RxNorm: 328103 Take 1 Capsule(s) Oral QHS every night at bedtime 02/15/20 20 Inactive Lyrica 100 mg capsule RxNorm: 272340 Take 1 Capsule(s) Oral QHS every night at bedtime 02/15/20 20 Inactive Lyrica 50 mg capsule RxNorm: 659444 Take 1 Capsule(s) Oral QAM every morning 02/15/20 20 Inactive venlafaxine ER 75 mg capsule,extended release 24 hr RxNorm: 535848 Take 3 Capsule(s) Oral QD 06/12/2021 Activepolyethylene glycol 3350 17 gram/dose oral powderRxNorm: 218379Spmp 17=1 capful Gram(s) Oral BID as needed mix with 4-8oz of rqichm4906/12/2021ctive loperamide 2 mg capsuleRxNorm: 874142Gjtr 1 Capsule(s) Oral QID as needed 06/12/2021ctiveLevemir FlexTouch U-100 Insulin 100 unit/mL (3 mL) subcutaneous penRxNorm: 438866Bhlrhy 80 Unit(s) Subcutaneous BID07/14//Inactive Novolog Flexpen U-100 Insulin aspart 100 unit/mL (3 mL) subcutaneousRxNorm: 8229412Cbllto 30 Unit(s) Subcutaneous TID with meals/Inactive Medication [...] Codes Status Date Referral: [facility] WPtel: [address], [address] [id number] USReferralRecords Yrzraunt54/08/2023Referral: [facility] WPtel: [address] [facility] [address] [id number] FCSdjngkolNdhwskkte01/12/2022Referral: General CardiologyReferralCompleted 1Referral: General PsychologistReferralClosed Instructions Comment Date Leonid is a Male being seen living at [facility]. Initial [facility] visit 01/2020. PMHx including DMII, CAD w/ 5 stents, Depression, Seizure Disorder and CKD stage 3. He moved into [facility] in 12/2019 but [facility] a [facility]21 [facility]. Sister Jyotsna involved in his care cell# [phone] Guardian: Don (tapan met in person 09/01/21), now has Lexii (same group as don)Lab Schedule: * 10/06/2022
--- OUTSIDE RECORDS SUMMARY | 2022-08-04 18:00 | XMS_ITS | CCD ---
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 Loan Operations Specialist Name Role Phone Tapan Shirley PA-C Primary Care Provider Unavailabl e Tapan Shirley PA-C Chronic Care Management Unavaila ble Summary Purpose DataExchange Insurance Providers Payer name Policy type / Coverage type Covered constitution party ID Effective Begin Date Effective End Date [place] B [id number] Unknown Unknown [place] B [id number] Unknown Unknown Family history Sister Brittany Suggs [...] Unknown Assisted 09/03/[address]: 9505737 Non-Smoker / No History of Smoking 09/02/[address]: 573855016 No Alcohol Consum ption 09/02/2020 Allergies, Adverse Reactions, Alerts Substance Reaction Codes Entered Date Inactivated Date Status LISINOPRIL RxNorm: 4953557No Inactive DateActiveMetformin MShQkeknyx89/28/2020No Inactive DateActive Problems Condition Codes Effective Dates [...] deficiencyICD-10: E55.9 ICD-9: 268.912/ctiveCoronary artery disease involving [place] coronary artery of [place] heart, angina presence unspecifiedICD-10: I25.10 ICD-9: 414.0111/ctiveShortness [...] vascular disease)ICD-10: I73.9 ICD-9: 443.909/2ActiveDepressionICD-10: F32.9 ICD-9: 55242/2ResolvedDVT (deep venous thrombosis)ICD-10: I82.409 ICD-9: 453.4009/esolvedEncounter for [...] L91.8 ICD-9: 701.911/1ActiveCallus of heelICD-10: L84 ICD-9: 84392/1ActiveImpacted cerumen, left earICD-10: H61.22 ICD-9: 380.408/ctiveContact with [...] Z20.828 ICD-9: V01.7902esolvedHyperhidrosis of palmsICD-10: L74.512 ICD-9: 705.2645BnhsnyAjocykyrZciuzrt84/28/2020ActiveDiabetes mellitus Type 6Jhbcfvu60/28/2020ActiveAnemia in chronic kidney diseaseICD-10: D63.1 02/12/2020ResolvedHyperlipidemia, unspecifiedICD-10: E78.509Resolved Medications Medication Codes Instructions Start Date Stop Date Status Fill Instructions carvedilol 25 mg tablet RxNorm: 280826 1 Tablet(s) Oral QD 07/28/19 23 023 Inactive lisinopril 20 mg tablet RxNorm: 847722 Give 1 Tablet(s) Oral QD 07/28/19 23 023 Inactive Lyrica 150 mg capsule RxNorm: 402171 Take 1 Capsule(s) Oral QHS every night at bedtime 07/19/19 23 023 Inactive d/c 100mg dose Diflucan 150 mg tablet RxNorm: 201245 Take 1 Tablet(s) Oral QD repeat on day 3 and 6 07/19/19 23 023 Inactive pregabalin 100 mg capsule RxNorm: 801695 Take 1 Capsule(s) Oral QAM every morning 07/19/19 23 023 Inactive gatifloxacin 0.5 % eye drops RxNorm: 822235 Instill 1 Drop(s) as directed TID Instill 1 drop in to affected eye(s) starting 1 day prior to surgery and continue until gone (do not exceed 4 weeks). 07/13/19 23 023 Inactive Humulin R Regular U-100 Insulin 100 unit/mL injection solution RxNorm: 867825 85 Unit(s) Injection TID 07/13/19 23 023 Inactive ketorolac 0.5 % eye drops RxNorm: 575796 Instill 1 Drop(s) as directed QID Instill 1 drop into affected eye(s) 4 times daily starting 1 day prior to surgery and continue until gone (do not exceed 4 weeks). 07/13/19 23 023 Inactive carvedilol 25 mg tablet RxNorm: 794701 2 Tablet(s) Oral BID 07/13/19 23 023 Inactive Diflucan 150 mg tablet RxNorm: 089758 Take 1 Tablet(s) Oral QD repeat on day 3 and 6 06/30/19 23 023 Inactive Accu-Chek Guide test strips RxNorm: Use 1 Test Strip QID Use 1 test strip to monitor blood glucose 4 times daily and as needed. Dx:E11.42. 06/23/19 23 023 Inactive ok to substitute with any covered alternative test strip dextromethorphan-gu aifenesin 10 mg-100 mg/5 mL oral liquid RxNorm: 975521 Take 10 Milliliter(s) Oral every 4 hours as needed for cough 06/19/19 23 023 Inactive dextromethorphan-gu aifenesin 10 mg-100 mg/5 mL oral liquid RxNorm: 799612 Take 10 Milliliter(s) Oral every 4 hours as needed for cough 02 023 Inactive Lyrica 150 mg capsule RxNorm: 281177 Take 1 Capsule(s) Oral QHS every night at bedtime 06/18/19 023 Inactive d/c 100mg dose aripiprazole 15 mg tablet RxNorm: 152586 /2 TAB (7.5MG) ORALLY DAILY (DX:MAJOR DEPRESSIVE DISORDER) 06/05/19 023 Inactive pregabalin 100 mg capsule RxNorm: 046527 1 Capsule(s) Oral QAM every morning 06/02/19 023 Inactive Banophen 50 mg capsule RxNorm: 1261576 Take 1 Capsule(s) Oral Q6H every 6 hours as needed 05/19/19 23 No Stop Date Active Novolog Flexpen U-100 Insulin aspart 100 unit/mL (3 mL) subcutaneous RxNorm: 3782274 Inject 10 Unit(s) Subcutaneous QHS every night at bedtime with nighttime snack 04/08/20 022 Inactive Novolog Flexpen U-100 Insulin aspart 100 unit/mL (3 mL) subcutaneous RxNorm: 4099937 Inject 42 Unit(s) Subcutaneous TID in addition to sliding scale 04/08/20 022 Inactive d/c 36u albuterol sulfate HFA 90 mcg/actuation aerosol inhaler RxNorm: 5704847 Take 2 Puff(s) Inhalation Q4H every four hours as needed as needed for SOB, cough, or wheezing 04/07/20 030 Active Banophen 50 mg capsule RxNorm: 4929493 Take 1 Capsule(s) Oral Q6H every 6 hours as needed 04/06/20 023 Inactive diphenhydramine 50 mg tablet RxNorm: 8454363 Take 1 Tablet(s) Oral Q6H every 6 hours as needed 04/06/20 22 022 Inactive diphenhydramine 50 mg tablet RxNorm: 7896384 1 Tablet(s) Oral Q6H every 6 hours as needed 04/06/20 22 022 Inactive Abilify 15 mg tablet RxNorm: 044276 /2 Tablet(s) Oral QD 03/10/20 22 023 Inactive Shingrix (PF) 50 mcg/0.5 mL intramuscular suspension, kit RxNorm: 2341282 Administer 1/2 Milliliter(s) Intramuscular QD one time shingrix step 2 ( step 1 given 11/04/21) WITH needle - Nursing please administer upon arrival and once administered 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, diagnostic imaging manager, 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, and lot# so we can update [facility] 02/18/20 22 022 Inactive dispense with needle Shingrix (PF) 50 mcg/0.5 mL intramuscular suspension, kit RxNorm: 0458872 Administer 1/2 Milliliter(s) Intramuscular QD one time shingrix step 2 ( step 1 given 11/04/21) WITH needle - Nursing please administer upon arrival and once administered 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, diagnostic imaging manager, 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, and lot# so we can update [facility] 02/18/20 22 022 Inactive dispense with needle acetaminophen 500 mg tablet RxNorm: 706006 Take 1 Tablet(s) Oral TID 01/08/20 22 023 Active d/c PRN order polyethylene glycol 3350 17 gram/dose oral powder RxNorm: 425656 Take 17=1 capful Gram(s) Oral QD mix with 4-8oz of liquid 01/08/20 22 023 Active take this in addition to BID prn order Lyrica 100 mg capsule RxNorm: 500674 Take 1 Capsule(s) Oral QAM every morning 01/08/20 22 022 Inactive d/c 50mg dose Lyrica 150 mg capsule RxNorm: 819332 Take 1 Capsule(s) Oral QHS every night at bedtime 01/08/20 22 023 Inactive d/c 100mg dose Abilify 5 mg tablet RxNorm: 294440 Take 1 Tablet(s) Oral QD take 1 tab po QD #30 refill 5 dx: MDD 12/12/19 22 022 Inactive Abilify 5 mg tablet RxNorm: 414308 Take 1 Tablet(s) Oral QD take 1 tab po QD #30 refill 5 dx: MDD 12/12/19 22 022 Inactive chlorthalidone 25 mg tablet RxNorm: 317990 Take 1 Tablet(s) Oral QAM every morning 12/10/19 22 023 Active Novolog Flexpen U-100 Insulin aspart 100 unit/mL (3 mL) subcutaneous RxNorm: 9213129 Inject 42 Unit(s) Subcutaneous TID in addition to sliding scale 12/10/19 22 022 Inactive d/c 36u pregabalin 50 mg capsule RxNorm: 634064 Take 1 Capsule(s) Oral QAM every morning 11/12/19 22 022 Inactive tetanus-diphtheria toxoids-Td 2 Lf unit-2 Lf unit/0.5 mL IM suspension RxNorm: 139 Take 0.5 Miscellaneous Intramuscular 11/12/19 22 022 Inactive need tdap - nursing to administer upon arrival pregabalin 50 mg capsule RxNorm: 303810 Take 1 Capsule(s) Oral QAM every morning 10/16/19 022 Inactive pregabalin 50 mg capsule RxNorm: 778045 Take 1 Capsule(s) Oral QAM every morning 10/16/19 22 022 Inactive pregabalin 50 mg capsule RxNorm: 971705 1 Capsule(s) Oral QAM every morning 10/15/19 22 022 Inactive Shingrix (PF) 50 mcg/0.5 mL intramuscular suspension, kit RxNorm: 6911384 Administer 1/2 Milliliter(s) Intramuscular one time Nursing please administer upon arrival and once administered 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, diagnostic imaging manager, 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 10/09/19 22 022 Inactive shingrix step 1 Shingrix (PF) 50 mcg/0.5 mL intramuscular suspension, kit RxNorm: 9036847 Administer 1/2 Milliliter(s) Intramuscular one time Nursing please administer upon arrival and once administered 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, diagnostic imaging manager, 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 10/09/19 22 022 Inactive shingrix step 1 cholecalciferol (vitamin D3) 1,250 mcg (50,000 unit) capsule RxNorm: 126235 Take 1 Capsule(s) Oral QW once a [...] aspart 100 unit/mL (3 mL) subcutaneous RxNorm: 1780978 Inject 10 Unit(s) Subcutaneous QHS every night at bedtime with nighttime snack 10/08/19 22 Inactive Shingrix (PF) 50 mcg/0.5 mL intramuscular suspension, kit RxNorm: 0683315 ADMINISTER 2-DOSE SERIES PER CDC GUIDELINES 10/08/19 22 Active Shingrix (PF) 50 mcg/0.5 mL intramuscular suspension, kit RxNorm: 1366651 ADMINISTER 2-DOSE SERIES PER CDC GUIDELINES 10/08/19 22 Inactive Novolog Flexpen U-100 Insulin aspart 100 unit/mL (3 mL) subcutaneous RxNorm: 0186558 Inject 36 Unit(s) Subcutaneous TID in addition to sliding scale 10/08/19 22 Inactive Novofine Autocover 30 gauge x 1/3 needle RxNorm: Use 1 Miscellaneous UD as directed Use 1 needle as directed to administer insulin 5 times a day Dx:E11.42. 10/03/19 Inactive ok to substitute with any covered alternative pen needle benzoyl peroxide 10 % topical cleanser RxNorm: 021342 Apply 1 Application Topical QD apply to face, wash rinse and dry once daily (may change to QOD if drying) 08/19/19 22 Inactive (%covered by insurance) #60ml refill 11 dx: acne benzoyl peroxide 10 % topical cleanser RxNorm: 010089 Apply 1 Application Topical QD apply to face, wash rinse and dry once daily (may change to QOD if drying) 08/19/19 22 022 Inactive (%covered by insurance) #60ml refill 11 dx: acne benzoyl peroxide 10 % topical cleanser RxNorm: 184506 Apply 1 Application Topical QD apply to face, wash rinse and dry once daily (may change to QOD if drying) 08/19/19 22 022 Inactive (%covered by insurance) #60ml refill 11 dx: acne Lyrica 50 mg capsule RxNorm: 958898 Take 1 Capsule(s) Oral QAM every morning Take 1 capsule by mouth once daily 08/19/19 22 022 Inactive benzoyl peroxide 10 % topical cleanser RxNorm: 185995 Apply 1 Application Topical QD apply to face, wash rinse and dry once daily (may change to QOD if drying) 08/19/19 22 022 Inactive (%covered by insurance) #60ml refill 11 dx: acne Lyrica 100 mg capsule RxNorm: 528779 Take 1 Capsule(s) Oral QHS every night at bedtime Take 1 capsule by mouth once daily at bedtime 08/19/19 022 Inactive Lyrica 100 mg capsule RxNorm: 746698 Take 1 Capsule(s) Oral QHS every night at bedtime Take 1 capsule by mouth once daily at bedtime 08/16/19 22 Inactive Lyrica 50 mg capsule RxNorm: 532478 Take 1 Capsule(s) Oral QAM every morning Take 1 capsule by mouth once daily 08/16/19 Inactive Levemir FlexTouch U-100 Insulin 100 unit/mL (3 mL) subcutaneous pen RxNorm: 302542 Inject 86 Unit(s) Subcutaneous BID 08/05/19 22 022 Inactive d/c 83units BID Lyrica 100 mg capsule RxNorm: 437151 Take 1 Capsule(s) Oral QHS every night at bedtime Take 1 capsule by mouth once daily at bedtime 07/14/19 22 022 Inactive Lyrica 50 mg capsule RxNorm: 249091 Take 1 Capsule(s) Oral QAM every morning Take 1 capsule by mouth once daily 07/14/19 22 02/28/2 022 Inactive Levemir FlexTouch U-100 Insulin 100 unit/mL (3 mL) subcutaneous pen RxNorm: 202714 Inject 83 Unit(s) Subcutaneous BID 07/08/19 Inactive d/c 80units BID Accu-Chek Guide Glucose [...] times daily and as needed. Dx:E11.42 06/05/19 022 Inactive ok to substitute with [...] 30 mg tablet,extended release 24 hr RxNorm: 271579 Take 1 Tablet(s) Oral QD 05/05/20 No Stop Date Active hydralazine 50 mg tablet RxNorm: 662715 Take 1 Tablet(s) Oral QID 05/05/20 21 022 Inactive venlafaxine ER 225 mg tablet,extended release 24 hr RxNorm: 658704 Take 1 Tablet(s) Oral QD 05/05/20 21 021 Inactive venlafaxine ER 225 mg tablet,extended release 24 hr RxNorm: 531385 Take 1 Tablet(s) Oral QD 05/05/20 022 Inactive hydralazine 50 mg tablet RxNorm: 692664 Take 1 Tablet(s) Oral QID 05/05/20 Inactive aspirin 81 mg tablet,delayed release RxNorm: 099799 Take 1 Tablet(s) Oral QD 03/31/20 Inactive Zetia 10 mg tablet RxNorm: 213835 Take 1 Tablet(s) Oral QD 03/31/20 022 Inactive Vitamin D2 1,250 mcg (50,000 unit) capsule RxNorm: 9680997 Take 1 Capsule(s) Oral QW once a week x 12 weeks 03/31/20 Inactive Vitamin D2 1,250 mcg (50,000 unit) capsule RxNorm: 5701654 Take 1 Capsule(s) Oral QW once a week 03/31/20 Inactive Zetia 10 mg tablet RxNorm: 227755 Take 1 Tablet(s) Oral QD 03/31/20 021 Inactive hydralazine 25 mg tablet RxNorm: 426729 Take 1 Tablet(s) Oral QID 03/31/20 021 Inactive hydralazine 25 mg tablet RxNorm: 303942 Take 1 Tablet(s) Oral QID 03/31/20 Inactive hydralazine 10 mg tablet RxNorm: 889182 Take 1 Tablet(s) Oral QID 03/03/20 021 Inactive cephalexin 500 mg tablet RxNorm: 476989 Take 1 Tablet(s) Oral QID 02/27/20 021 Inactive cephalexin 500 mg tablet RxNorm: 651032 Take 1 Tablet(s) Oral QID 02/27/20 021 Inactive lisinopril 40 mg tablet RxNorm: 007606 Take 1 Tablet(s) Oral QD 02/11/20 023 Inactive Eliquis 5 mg tablet RxNorm: 4430659 Take 1 Tablet(s) Oral BID 01/05/20 21 022 Inactive Eliquis 5 mg tablet RxNorm: 7913297 Take 2 Tablet(s) Oral QD 01/01/20 021 Inactive Lyrica 50 mg capsule RxNorm: 218959 Take 1 Capsule(s) Oral QAM every morning 12/24/19 021 Inactive Lyrica 100 mg capsule RxNorm: 546567 Take 1 Capsule(s) Oral QHS every night at bedtime 12/24/19 021 Inactive clotrimazole 1 % topical cream RxNorm: 528112 Apply to right foot and toes Topical BID 12/04/19 21 023 Inactive metoprolol succinate ER 200 mg tablet,extended release 24 hr RxNorm: 824923 Take 1 Tablet(s) Oral QD 12/04/19 023 Inactive ciprofloxacin 500 mg tablet RxNorm: 909311 Take 1 Tablet(s) Oral QD 11/30/19 021 Inactive DX ofloxacin otic drops Accu-Chek Guide test strips RxNorm: USE 1 TO CHECK GLUCOSE 4 TIMES DAILY AND NEEDED 11/15/19 21 023 Inactive Blood Glucose Test strips RxNorm: Use 1 Test Strip QID at PRN 11/05/19 023 Inactive E11.42 lisinopril 30 mg tablet RxNorm: 007408 Take 1 Tablet(s) Oral QD 10/30/19 021 Inactive lisinopril 20 mg tablet RxNorm: 589235 Take 1 Tablet(s) Oral QD 10/23/19 021 Inactive lisinopril 20 mg tablet RxNorm: 825527 Take 1 Tablet(s) Oral QD 10/23/19 021 Inactive lisinopril 10 mg tablet RxNorm: 427031 Take 1 Tablet(s) Oral QD 10/02/19 21 021 Inactive icosapent ethyl 1 gram capsule RxNorm: 4567922 Take 2 Capsule(s) (2 gm) Oral BID with meals 09/12/19 Inactive Okay to dispense one 2gm tab if you have that available. icosapent ethyl 1 gram capsule RxNorm: 4116841 Take 2 Capsule(s) Oral BID 09/12/19 21 Inactive Okay to dispense one 2gm tab if you have that available. amlodipine 10 mg tablet RxNorm: 414681 Take 1 Tablet(s) Oral QD 09/04/19 Inactive aspirin 81 mg tablet,delayed release RxNorm: 202523 Take 1 Tablet(s) Oral QD 09/04/19 Inactive Levemir FlexTouch U-100 Insulin 100 unit/mL (3 mL) subcutaneous pen RxNorm: 193641 Inject 150 Unit(s) Subcutaneous BID 09/04/19 Inactive venlafaxine ER 150 mg tablet,extended release 24 hr RxNorm: 791538 Take 1 Tablet(s) Oral QD 09/04/19 Inactive clotrimazole-betame thasone 1 %-0.05 % topical cream RxNorm: 057808 Apply to rash on red area on left abdomen/chest Topical BID 08/10/19 Inactive amlodipine 5 mg tablet RxNorm: 661944 Take 1 Tablet(s) Oral QD 07/31/19 Inactive cephalexin 500 mg tablet RxNorm: 816804 Take 1 Tablet(s) Oral BID BID - Twice Daily 07/31/19 021 Inactive Start 08/01/20 pantoprazole 40 mg tablet,delayed release RxNorm: 662130 Take 1 Tablet(s) Oral QAM every morning 07/08/19 Inactive senna 8.6 mg tablet RxNorm: 863956 Take 1 Tablet(s) Oral QD 07/08/19 Inactive pravastatin 80 mg tablet RxNorm: 993397 Take 1 Tablet(s) Oral QHS every night at bedtime 07/08/19 Inactive carbamazepine 200 mg tablet RxNorm: 963746 Take 1 Tablet(s) Oral BID 07/08/19 022 Inactive torsemide 20 mg tablet RxNorm: 201567 Take 1 Tablet(s) Oral QD 07/08/19 21 023 Inactive clopidogrel 75 mg tablet RxNorm: 624776 Take 1 Tablet(s) Oral QD 07/08/19 021 Inactive Blood Glucose Test strips RxNorm: Use 1 Test Strip QID at PRN 07/08/19 21 Inactive E11.42 Novolog Flexpen U-100 Insulin aspart 100 unit/mL (3 mL) subcutaneous RxNorm: 5271387 Administer per sliding scale Milliliter(s) Subcutaneous TID 151-200: 10 u; 201-250: 20 u; 251-300: 30 u; 301-350: 40 u; 351-400: 50 u. 07/08/19 022 Inactive lisinopril 5 mg tablet RxNorm: 460708 Take 1 Tablet(s) Oral QD 07/08/19 021 Inactive Novolog Flexpen U-100 Insulin aspart 100 unit/mL (3 mL) subcutaneous RxNorm: 8628710 Inject 85 Unit(s) Subcutaneous TID 07/08/19 022 Inactive clotrimazole 1 % topical cream RxNorm: 009068 Apply to bilateral groin areas Topical BID 07/08/19 022 Inactive metoprolol succinate ER 200 mg tablet,extended release 24 hr RxNorm: 281962 Take 1 Tablet(s) Oral QD 07/08/19 021 Inactive Vitamin D3 25 mcg (1,000 unit) tablet RxNorm: 831854 Take 1 Tablet(s) Oral QD 07/08/19 021 Inactive isosorbide dinitrate 30 mg tablet RxNorm: 608913 Take 1 Tablet(s) Oral QD 07/08/19 021 Inactive Levemir FlexTouch U-100 Insulin 100 unit/mL (3 mL) subcutaneous pen RxNorm: 283218 Inject 140 Unit(s) Subcutaneous BID 07/08/19 021 Inactive venlafaxine 75 mg tablet RxNorm: 830359 Take 1 Tablet(s) Oral QD 07/08/19 21 021 Inactive acetaminophen 500 mg tablet RxNorm: 688180 Take 1 Tablet(s) Oral TID as needed for headache 06/18/19 21 021 Inactive acetaminophen 500 mg tablet RxNorm: 293997 Take 1 Tablet(s) Oral TID as needed for headache 06/18/19 21 021 Inactive Lyrica 100 mg capsule RxNorm: 005260 Take 1 Capsule(s) Oral QHS every night at bedtime 06/11/19 21 021 Inactive Lyrica 50 mg capsule RxNorm: 381821 Take 1 Capsule(s) Oral QAM every morning 06/10/19 21 021 Inactive hydrocortisone 2.5 % topical cream RxNorm: 009842 Apply to bilateral groin creases Topical BID 05/15/20 20 021 Inactive clotrimazole 1 % topical cream RxNorm: 959431 Apply to bilateral groin areas Topical BID 05/15/20 20 021 Inactive Lyrica 50 mg capsule RxNorm: 775826 Take 1 Capsule(s) Oral QAM every morning 05/14/20 20 020 Inactive Lyrica 100 mg capsule RxNorm: 701039 Take 1 Capsule(s) Oral QHS every night [...] Inactive Nystop 100,000 unit/gram topical powder RxNorm: 006009 Apply to abd folds, under breasts and L side of groin Topical BID x 14 days, then BID PRN 04/08/20 20 Inactive dx: yeast dermatitis Lyrica 100 mg capsule RxNorm: 075057 Take 1 Capsule(s) Oral QHS every night at bedtime 03/13/20 20 Inactive Lyrica 50 mg capsule RxNorm: 448149 Take 1 Capsule(s) Oral QAM every morning 03/13/20 20 Inactive ketoconazole 2 % shampoo RxNorm: 439041 Apply Topical two times a week with showers 03/11/20 20 Inactive cholecalciferol (vitamin D3) 50 mcg (2,000 unit) tablet RxNorm: 318613 Take 1 Tablet(s) Oral QD 03/11/20 20 Inactive Zetia 10 mg tablet RxNorm: 583113 Take 1 Tablet(s) Oral QD 03/07/20 20 Inactive Zetia 10 mg tablet RxNorm: 401330 Take 1 Tablet(s) Oral QD 03/07/20 20 Inactive Lyrica 50 mg capsule RxNorm: 557940 Take 1 Capsule(s) Oral QAM every morning 02/15/20 20 Inactive Lyrica 100 mg capsule RxNorm: 815043 Take 1 Capsule(s) Oral QHS every night at bedtime 02/15/20 20 Inactive Lyrica 100 mg capsule RxNorm: 110526 Take 1 Capsule(s) Oral QHS every night at bedtime 02/15/20 20 Inactive Lyrica 50 mg capsule RxNorm: 374204 Take 1 Capsule(s) Oral QAM every morning 02/15/20 20 Inactive venlafaxine ER 75 mg capsule,extended release 24 hr RxNorm: 800262 Take 3 Capsule(s) Oral QD 06/12/2021 Activepolyethylene glycol 3350 17 gram/dose oral powderRxNorm: 571830Kdoa 17=1 capful Gram(s) Oral BID as needed mix with 4-8oz of wawscc1406/12/2021ctive loperamide 2 mg capsuleRxNorm: 732012Lgec 1 Capsule(s) Oral QID as needed 06/12/2021ctiveLevemir FlexTouch U-100 Insulin 100 unit/mL (3 mL) subcutaneous penRxNorm: 265631Odhqbv 80 Unit(s) Subcutaneous BID07/14//Inactive Novolog Flexpen U-100 Insulin aspart 100 unit/mL (3 mL) subcutaneousRxNorm: 4914181Fdjoxa 30 Unit(s) Subcutaneous TID with meals/Inactive Medication [...] Referral: [facility] WPtel: [address], [address] [id number] USReferralRecords Mkbbxtvw31/08/2023Referral: [facility] WPtel: [address] [id number] LRMkvzccvrQwujsoyee84/12/2022eferral: General CardiologyReferralCompleted 1Referral: General PsychologistReferralClosed Instructions Comment [...] Sister Jyotsna involved in his care cell# [phone] Guardian: Don (tapan met in person 09/01/21), now has Lexii (same group as don)Lab Schedule: * 10/06/2022
--- OUTSIDE RECORDS SUMMARY | 2022-09-14 08:56 | XMS_ITS | CCD ---
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 Name Role Phone Tapan Shirley PA-C Primary Care Provider Unavailabl e Tapan Shirley PA-C Chronic Care Management Unavaila ble Summary Purpose DataExchange Insurance Providers Payer name Policy type / Coverage type Covered constitution party ID Effective Begin Date Effective End Date [place] [id number] Unknown Unknown [place] [id number] Unknown Unknown Family history Sister Brittany Suggs Diagnosis Age At Onset No Family Disease Entered N/A Runs in the family Diagnosis Age At Onset No Known Diseases N/A Sister Blanka Mcduffie Diagnosis Age At Onset No Family Disease Entered N/A Social History Social History Element Codes Description Effec tive Dates Marital status Unknown Single 10/07/2021 Living arrangements Unknown Usp 09/03/[address]: 3234029 Non-Smoker / No History of Smoking 09/02/[address]: 949601872 No Alcohol Consum ption 09/02/2020 Allergies, Adverse Reactions, Alerts Substance Reaction Codes Entered Date Inactivated Date Status LISINOPRIL RxNorm: 7255071No Inactive DateActiveMetformin UFsRayfeka71/28/2020No Inactive DateActive Problems Condition Codes Effective Dates Condition St atus Depression ICD-10: F32.9 ICD-9: 23731/2ActiveHistory of anemia due to CKDICD-10: N18.9 ICD-9: 585.9072ActiveHyperlipidemia associated with type 2 diabetes mellitusICD-10: E11.69 ICD-9: 250.80072ActiveHypertension associated with diabetesICD-10: E11.59 ICD-9: 250.80072ActiveSecondary hypertensionICD-10: I15.9 ICD-9: 405.9907/2ActiveStage 2 chronic kidney diseaseICD-10: N18.2 ICD-9: 585.207/2ActiveStage 2 chronic 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ICD-10: E11.22 ICD-9: 250.4007/ctiveType 2 diabetes mellitus with diabetic polyneuropathy, with long-term current use of insulinICD-10: E11.42 ICD-9: 250.6007/ctiveCandidiasis, intertrigoICD-10: B37.2 ICD-9: 112.306/ctiveGout due to renal impairmentICD-10: M10.30 ICD-9: 274.1006/ctiveInappropriate sexual behaviorICD-10: Z72.89 ICD-9: 312.8906/ctiveOnychogryposisICD-10: L60.2 ICD-9: 703.806/ctivePreventative health careICD-10: Z00.00 ICD-9: V70.006/ctiveSeizure disorderICD-10: G40.909 ICD-9: 345.9006/ctiveLower extremity edemaICD-10: R60.0 ICD-9: 782.305/ctiveAmputated toe of right footICD-10: S98.131A ICD-9: 895.004/ctiveLong term (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 insulinICD-10: Z79.4 04ctiveMuscular painICD-10: M79.10 ICD-9: 729.103/ctivePain of right heelICD-10: M79.671 ICD-9: 729.503/ctiveCoronary artery disease involving [place] coronary artery of [place] heart, angina presence unspecifiedICD-10: I25.10 ICD-9: 414.010/ctiveDVT (deep venous thrombosis)ICD-10: I82.409 ICD-9: 453.4002/ctiveEncounter for immunizationICD-10: Z23 ICD-9: V03.8902/ctiveLearning disabilityICD-10: F81.9 ICD-9: 315.212/ctiveSkin tagICD-10: L91.8 ICD-9: 701.911/ctiveVitamin D deficiencyICD-10: E55.9 ICD-9: 268.911/ctiveCellulitisICD-10: L03.90 ICD-9: 682.910/ctiveCallus of heelICD-10: L84 ICD-9: 53091/ctiveImpacted cerumen, left earICD-10: H61.22 ICD-9: 380.408ctiveContact with and (suspected) exposure to covid-19 ICD-10: Z20.822 ICD-9: V01.7908esolvedOther infective acute otitis externa of left ear ICD-10: H60.392 ICD-9: 380.1008esolvedScrotal skin lesionICD-10: N50.9 ICD-9: 608.908esolvedTinea pedisICD-10: B35.3 ICD-9: 110.408esolvedAnemia due to stage 3b chronic kidney diseaseICD- 10: N18.32 ICD-9: 285.21010/01/2020esolvedChronic kidney disease, stage 3 unspecifiedICD- 10: N18.3004esolvedDandruff in adultICD-10: L21.0 ICD-9: 690.18007/08/2020ctiveContact with and (suspected) exposure to other viral communicable diseasesICD-10: Z20.828 ICD-9: V01.7902esolvedHyperhidrosis of palmsICD-10: L74.512 ICD-9: 705.6212AndxzmVzvbojqiLzfhwjv29/28/2020ActiveDiabetes mellitus Type 7Bdzmsqu88/28/2020ActiveAnemia in chronic kidney diseaseICD-10: D63.1 02/12/2020ResolvedHyperlipidemia, unspecifiedICD-10: E78.509Resolved Medications Medication Codes Instructions Start Date Stop Date Status Fill Instructions Abilify 5 mg tablet RxNorm: 607895 Take 1 Tablet(s) Oral QD take 1 tab po QD #30 refill 5 dx: MDD 12/12/19 22 022 Inactive Abilify 5 mg tablet RxNorm: 004084 Take 1 Tablet(s) Oral QD take 1 tab po QD #30 refill 5 dx: MDD 12/12/19 22 022 Inactive chlorthalidone 25 mg tablet RxNorm: 608817 Take 1 Tablet(s) Oral QAM every morning 12/10/19 22 023 Active Novolog Flexpen U-100 Insulin aspart 100 unit/mL (3 mL) subcutaneous RxNorm: 0757079 Inject 42 Unit(s) Subcutaneous TID in addition to sliding scale 12/10/19 22 022 Inactive d/c 36u pregabalin 50 mg capsule RxNorm: 909589 Take 1 Capsule(s) Oral QAM every morning 11/12/19 22 022 Inactive tetanus-diphtheria toxoids-Td 2 Lf unit-2 Lf unit/0.5 mL IM suspension RxNorm: 139 Take 0.5 Miscellaneous Intramuscular 11/12/19 22 022 Inactive need tdap - nursing to administer upon arrival pregabalin 50 mg capsule RxNorm: 870467 Take 1 Capsule(s) Oral QAM every morning 10/16/19 22 022 Inactive pregabalin 50 mg capsule RxNorm: 970153 Take 1 Capsule(s) Oral QAM every morning 10/16/19 22 022 Inactive pregabalin 50 mg capsule RxNorm: 815628 1 Capsule(s) Oral QAM every morning 10/15/19 22 022 Inactive Shingrix (PF) 50 mcg/0.5 mL intramuscular suspension, kit RxNorm: 6441621 Administer 1/2 Milliliter(s) Intramuscular one time Nursing please administer upon arrival and once administered 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, presser first, 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 10/09/19 22 05/24/2 022 Inactive shingrix step 1 Shingrix (PF) 50 mcg/0.5 mL intramuscular suspension, kit RxNorm: 4375578 Administer 1/2 Milliliter(s) Intramuscular one time Nursing please administer upon arrival and once administered 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, presser first, 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 10/09/19 22 Inactive shingrix step 1 Novolog Flexpen U-100 Insulin aspart 100 unit/mL (3 mL) subcutaneous RxNorm: 6717542 Inject 10 Unit(s) Subcutaneous QHS every night at bedtime with nighttime snack 10/08/19 22 Inactive cholecalciferol (vitamin D3) 1,250 mcg (50,000 unit) capsule RxNorm: 851868 Take 1 Capsule(s) Oral QW once a [...] 50 mcg/0.5 mL intramuscular suspension, kit RxNorm: 9161587 ADMINISTER 2-DOSE SERIES PER CDC GUIDELINES 10/08/19 22 Active Shingrix (PF) 50 mcg/0.5 mL intramuscular suspension, kit RxNorm: 5647268 ADMINISTER 2-DOSE SERIES PER CDC GUIDELINES 10/08/19 22 Inactive Novolog Flexpen U-100 Insulin aspart 100 unit/mL (3 mL) subcutaneous RxNorm: 5818617 Inject 36 Unit(s) Subcutaneous TID in addition to sliding scale 10/08/19 22 Inactive Novofine Autocover 30 gauge x 1/3 needle RxNorm: Use 1 Miscellaneous UD as directed Use 1 needle as directed to administer insulin 5 times a day Dx:E11.42. 10/03/19 22 022 Inactive ok to substitute with any covered alternative pen needle benzoyl peroxide 10 % topical cleanser RxNorm: 103283 Apply 1 Application Topical QD apply to face, wash rinse and dry once daily (may change to QOD if drying) 08/19/19 22 022 Inactive (%covered by insurance) #60ml refill 11 dx: acne Lyrica 100 mg capsule RxNorm: 164266 Take 1 Capsule(s) Oral QHS every night at bedtime Take 1 capsule by mouth once daily at bedtime 08/19/19 022 Inactive benzoyl peroxide 10 % topical cleanser RxNorm: 731333 Apply 1 Application Topical QD apply to face, wash rinse and dry once daily (may change to QOD if drying) 08/19/19 22 022 Inactive (%covered by insurance) #60ml refill 11 dx: acne benzoyl peroxide 10 % topical cleanser RxNorm: 289694 Apply 1 Application Topical QD apply to face, wash rinse and dry once daily (may change to QOD if drying) 08/19/19 22 022 Inactive (%covered by insurance) #60ml refill 11 dx: acne Lyrica 50 mg capsule RxNorm: 257001 Take 1 Capsule(s) Oral QAM every morning Take 1 capsule by mouth once daily 08/19/19 022 Inactive benzoyl peroxide 10 % topical cleanser RxNorm: 356690 Apply 1 Application Topical QD apply to face, wash rinse and dry once daily (may change to QOD if drying) 08/19/19 22 022 Inactive (%covered by insurance) #60ml refill 11 dx: acne Lyrica 100 mg capsule RxNorm: 768493 Take 1 Capsule(s) Oral QHS every night at bedtime Take 1 capsule by mouth once daily at bedtime 08/16/19 22 022 Inactive Lyrica 50 mg capsule RxNorm: 257825 Take 1 Capsule(s) Oral QAM every morning Take 1 capsule by mouth once daily 08/16/19 22 022 Inactive Levemir FlexTouch U-100 Insulin 100 unit/mL (3 mL) subcutaneous pen RxNorm: 050923 Inject 86 Unit(s) Subcutaneous BID 08/05/19 22 022 Inactive d/c 83units BID Lyrica 100 mg capsule RxNorm: 578654 Take 1 Capsule(s) Oral QHS every night at bedtime Take 1 capsule by mouth once daily at bedtime 07/14/19 22 022 Inactive Lyrica 50 mg capsule RxNorm: 342129 Take 1 Capsule(s) Oral QAM every morning Take 1 capsule by mouth once daily 07/14/19 22 022 Inactive Levemir FlexTouch U-100 Insulin 100 unit/mL (3 mL) subcutaneous pen RxNorm: 423809 Inject 83 Unit(s) Subcutaneous BID 07/08/19 22 [...] test strip hydralazine 50 mg tablet RxNorm: 671384 Take 1 Tablet(s) Oral QID 05/05/20 Inactive isosorbide mononitrate ER 30 mg tablet,extended release 24 hr RxNorm: 136425 Take 1 Tablet(s) Oral QD 05/05/20 No Stop Date Active venlafaxine ER 225 mg tablet,extended release 24 hr RxNorm: 610080 Take 1 Tablet(s) Oral QD 05/05/20 Inactive venlafaxine ER 225 mg tablet,extended release 24 hr RxNorm: 055789 Take 1 Tablet(s) Oral QD 05/05/20 022 Inactive hydralazine 50 mg tablet RxNorm: 742690 Take 1 Tablet(s) Oral QID 05/05/20 Inactive aspirin 81 mg tablet,delayed release RxNorm: 520500 Take 1 Tablet(s) Oral QD 03/31/20 Inactive Zetia 10 mg tablet RxNorm: 213934 Take 1 Tablet(s) Oral QD 03/31/20 Inactive Vitamin D2 1,250 mcg (50,000 unit) capsule RxNorm: 6279274 Take 1 Capsule(s) Oral QW once a week x 12 weeks 03/31/20 Inactive Vitamin D2 1,250 mcg (50,000 unit) capsule RxNorm: 5704114 Take 1 Capsule(s) Oral QW once a week 03/31/20 Inactive Zetia 10 mg tablet RxNorm: 184634 Take 1 Tablet(s) Oral QD 03/31/20 Inactive hydralazine 25 mg tablet RxNorm: 471949 Take 1 Tablet(s) Oral QID 03/31/20 Inactive hydralazine 25 mg tablet RxNorm: 517372 Take 1 Tablet(s) Oral QID 03/31/20 Inactive hydralazine 10 mg tablet RxNorm: 262805 Take 1 Tablet(s) Oral QID 03/03/20 021 Inactive cephalexin 500 mg tablet RxNorm: 040434 Take 1 Tablet(s) Oral QID 02/27/20 021 Inactive cephalexin 500 mg tablet RxNorm: 022322 Take 1 Tablet(s) Oral QID 02/27/20 021 Inactive lisinopril 40 mg tablet RxNorm: 612788 Take 1 Tablet(s) Oral QD 02/11/20 023 Inactive Eliquis 5 mg tablet RxNorm: 0970165 Take 1 Tablet(s) Oral BID 01/05/20 022 Inactive Eliquis 5 mg tablet RxNorm: 7908410 Take 2 Tablet(s) Oral QD 01/01/20 021 Inactive Lyrica 50 mg capsule RxNorm: 323256 Take 1 Capsule(s) Oral QAM every morning 12/24/19 021 Inactive Lyrica 100 mg capsule RxNorm: 318535 Take 1 Capsule(s) Oral QHS every night at bedtime 12/24/19 021 Inactive clotrimazole 1 % topical cream RxNorm: 000942 Apply to right foot and toes Topical BID 12/04/19 21 021 Inactive metoprolol succinate ER 200 mg tablet,extended release 24 hr RxNorm: 650648 Take 1 Tablet(s) Oral QD 12/04/19 023 Inactive ciprofloxacin 500 mg tablet RxNorm: 224535 Take 1 Tablet(s) Oral QD 11/30/19 021 Inactive DX ofloxacin otic drops Accu-Chek Guide test strips RxNorm: USE 1 TO CHECK GLUCOSE 4 TIMES DAILY AND NEEDED 11/15/19 21 021 Inactive Blood Glucose Test strips RxNorm: Use 1 Test Strip QID at PRN 11/05/19 022 Inactive E11.42 lisinopril 30 mg tablet RxNorm: 256225 Take 1 Tablet(s) Oral QD 10/30/19 021 Inactive lisinopril 20 mg tablet RxNorm: 570126 Take 1 Tablet(s) Oral QD 10/23/19 21 Inactive lisinopril 20 mg tablet RxNorm: 356209 Take 1 Tablet(s) Oral QD 10/23/19 21 021 Inactive lisinopril 10 mg tablet RxNorm: 037522 Take 1 Tablet(s) Oral QD 10/02/19 21 021 Inactive icosapent ethyl 1 gram capsule RxNorm: 4448516 Take 2 Capsule(s) (2 gm) Oral BID with meals 09/12/19 022 Inactive Okay to dispense one 2gm tab if you have that available. icosapent ethyl 1 gram capsule RxNorm: 4881852 Take 2 Capsule(s) Oral BID 09/12/19 021 Inactive Okay to dispense one 2gm tab if you have that available. amlodipine 10 mg tablet RxNorm: 416146 Take 1 Tablet(s) Oral QD 09/04/19 022 Inactive aspirin 81 mg tablet,delayed release RxNorm: 761886 Take 1 Tablet(s) Oral QD 09/04/19 021 Inactive Levemir FlexTouch U-100 Insulin 100 unit/mL (3 mL) subcutaneous pen RxNorm: 733025 Inject 150 Unit(s) Subcutaneous BID 09/04/19 022 Inactive venlafaxine ER 150 mg tablet,extended release 24 hr RxNorm: 228259 Take 1 Tablet(s) Oral QD 09/04/19 21 021 Inactive clotrimazole-betame thasone 1 %-0.05 % topical cream RxNorm: 967937 Apply to rash on red area on left abdomen/chest Topical BID 08/10/19 21 Inactive amlodipine 5 mg tablet RxNorm: 694179 Take 1 Tablet(s) Oral QD 07/31/19 21 021 Inactive cephalexin 500 mg tablet RxNorm: 374839 Take 1 Tablet(s) Oral BID BID - Twice Daily 07/31/19 21 021 Inactive Start 08/01/20 pantoprazole 40 mg tablet,delayed release RxNorm: 037054 Take 1 Tablet(s) Oral QAM every morning 07/08/19 Inactive senna 8.6 mg tablet RxNorm: 728254 Take 1 Tablet(s) Oral QD 07/08/19 Inactive pravastatin 80 mg tablet RxNorm: 937792 Take 1 Tablet(s) Oral QHS every night at bedtime 07/08/19 Inactive clotrimazole 1 % topical cream RxNorm: 196618 Apply to bilateral groin areas Topical BID 07/08/19 Inactive carbamazepine 200 mg tablet RxNorm: 322392 Take 1 Tablet(s) Oral BID 07/08/19 Inactive torsemide 20 mg tablet RxNorm: 247434 Take 1 Tablet(s) Oral QD 07/08/19 Inactive clopidogrel 75 mg tablet RxNorm: 077218 Take 1 Tablet(s) Oral QD 07/08/19 Inactive Blood Glucose Test strips RxNorm: Use 1 Test Strip QID at PRN 07/08/19 Inactive E11.42 Novolog Flexpen U-100 Insulin aspart 100 unit/mL (3 mL) subcutaneous RxNorm: 6232256 Administer per sliding scale Milliliter(s) Subcutaneous TID 151-200: 10 u; 201-250: 20 u; 251-300: 30 u; 301-350: 40 u; 351-400: 50 u. 07/08/19 Inactive lisinopril 5 mg tablet RxNorm: 394512 Take 1 Tablet(s) Oral QD 07/08/19 Inactive Novolog Flexpen U-100 Insulin aspart 100 unit/mL (3 mL) subcutaneous RxNorm: 6689589 Inject 85 Unit(s) Subcutaneous TID 07/08/19 Inactive metoprolol succinate ER 200 mg tablet,extended release 24 hr RxNorm: 827119 Take 1 Tablet(s) Oral QD 07/08/19 21 Inactive Vitamin D3 25 mcg (1,000 unit) tablet RxNorm: 875473 Take 1 Tablet(s) Oral QD 07/08/19 Inactive isosorbide dinitrate 30 mg tablet RxNorm: 708687 Take 1 Tablet(s) Oral QD 07/08/19 Inactive Levemir FlexTouch U-100 Insulin 100 unit/mL (3 mL) subcutaneous pen RxNorm: 386315 Inject 140 Unit(s) Subcutaneous BID 07/08/19 Inactive venlafaxine 75 mg tablet RxNorm: 320625 Take 1 Tablet(s) Oral QD 07/08/19 Inactive acetaminophen 500 mg tablet RxNorm: 325470 Take 1 Tablet(s) Oral TID as needed for headache 06/18/19 Inactive acetaminophen 500 mg tablet RxNorm: 552965 Take 1 Tablet(s) Oral TID as needed for headache 06/18/19 021 Inactive Lyrica 100 mg capsule RxNorm: 518724 Take 1 Capsule(s) Oral QHS every night at bedtime 06/11/19 021 Inactive Lyrica 50 mg capsule RxNorm: 218499 Take 1 Capsule(s) Oral QAM every morning 06/10/19 Inactive hydrocortisone 2.5 % topical cream RxNorm: 454639 Apply to bilateral groin creases Topical BID 05/15/20 20 021 Inactive clotrimazole 1 % topical cream RxNorm: 192148 Apply to bilateral groin areas Topical BID 05/15/20 20 021 Inactive Lyrica 50 mg capsule RxNorm: 567946 Take 1 Capsule(s) Oral QAM every morning 05/14/20 20 Inactive Lyrica 100 mg capsule RxNorm: 540479 Take 1 Capsule(s) Oral QHS every night at bedtime 05/14/20 Inactive Lancets,Thin 28 gauge RxNorm: Use 1 [...] Inactive Nystop 100,000 unit/gram topical powder RxNorm: 140949 Apply to abd folds, under breasts and L side of groin Topical BID x 14 days, then BID PRN 04/08/20 20 021 Inactive dx: yeast dermatitis Lyrica 100 mg capsule RxNorm: 656298 Take 1 Capsule(s) Oral QHS every night at bedtime 03/13/20 20 Inactive Lyrica 50 mg capsule RxNorm: 116980 Take 1 Capsule(s) Oral QAM every morning 03/13/20 20 Inactive ketoconazole 2 % shampoo RxNorm: 546880 Apply Topical two times a week with showers 03/11/20 20 Inactive cholecalciferol (vitamin D3) 50 mcg (2,000 unit) tablet RxNorm: 839693 Take 1 Tablet(s) Oral QD 03/11/20 20 021 Inactive Zetia 10 mg tablet RxNorm: 813653 Take 1 Tablet(s) Oral QD 03/07/20 20 021 Inactive Zetia 10 mg tablet RxNorm: 176849 Take 1 Tablet(s) Oral QD 03/07/20 20 Inactive Lyrica 50 mg capsule RxNorm: 889466 Take 1 Capsule(s) Oral QAM every morning 02/15/20 20 Inactive Lyrica 100 mg capsule RxNorm: 563826 Take 1 Capsule(s) Oral QHS every night at bedtime 02/15/20 20 Inactive Lyrica 100 mg capsule RxNorm: 849146 Take 1 Capsule(s) Oral QHS every night at bedtime 02/15/20 20 Inactive Lyrica 50 mg capsule RxNorm: 454284 Take 1 Capsule(s) Oral QAM every morning 02/15/20 20 Inactive venlafaxine ER 75 mg capsule,extended release 24 hr RxNorm: 995730 Take 3 Capsule(s) Oral QD 06/12/2021 Activepolyethylene glycol 3350 17 gram/dose oral powderRxNorm: 741486Lywj 17=1 capful Gram(s) Oral BID as needed mix with 4-8oz of ntmlsg4606/12/2021ctive Levemir FlexTouch U-100 Insulin 100 unit/mL (3 mL) subcutaneous penRxNorm: 530457Pylfyu 80 Unit(s) Subcutaneous BID07/14//Inactiveloperamide 2 mg capsuleRxNorm: 986335Sfcr 1 Capsule(s) Oral QID as hlqgvf4406/12/2021ctive Novolog Flexpen U-100 Insulin aspart 100 unit/mL (3 mL) subcutaneousRxNorm: 3102322Suyfvn 30 Unit(s) Subcutaneous TID with meals/Inactive Medication [...] Codes Status Date Referral: [facility] WPtel: [address], [address] [id number] USReferralAppointment Xcltajrlc78/08/2023Referral: [facility] WPtel: [address] [id number] ABBhsclidaAlzdffnqp57/12/2022Referral: General CardiologyReferralCompleted 1Referral: General PsychologistReferralClosed Instructions Comment Date Leonid is a Male being seen living at [facility]. Initial [facility] visit 01/2020. PMHx including DMII, CAD w/ 5 stents, Depression, Seizure Disorder and CKD stage 3. He moved into [facility] in 12/2019 but after a hospitalization 05/2021 he moved [facility] to have closer nursing attention. Sister Jyotsna involved in his care cell# [phone] Guardian: Don (tapan met in person 09/01/21), now has Lexii (same group as don)Lab Schedule: /09/08/2022
--- OUTSIDE RECORDS SUMMARY | 2022-09-14 18:00 | XMS_ITS | CCD ---
Author Name Sandra Clark CNP Address [address] [place] [address] Phone Organization [facility] Phone Care Team Providers Care Mini Shifter Name Role Phone Rosalina Shirley PA-C Primary Care Provider Unavailabl e Rosalina Shirley PA-C Chronic Care Management Unavaila ble Summary Purpose DataExchange Insurance Providers Payer name Policy type / Coverage type Covered constitution party ID Effective Begin Date Effective End Date Medicare [place] Medicare Part B [id number] Unknown Unknown [place] Part B [id number] Unknown Unknown Family history Sister Brittany Suggs Diagnosis Age At Onset No Family Disease Entered N/A Runs in the family Diagnosis Age At Onset No Known Diseases N/A Sister Blanka Mcduffie Diagnosis Age At Onset No Family Disease Entered N/A Social History Social History Element Codes Description Effec tive Dates Marital status Unknown Single 10/07/2021 Living arrangements Unknown Snf 09/03/[address]: 2153497 Non-Smoker / No History of Smoking 09/02/[address]: 852342143 No Alcohol Consum ption 09/02/2020 Allergies, Adverse Reactions, Alerts Substance Reaction Codes Entered Date Inactivated Date Status LISINOPRIL RxNorm: 6910490No Inactive DateActiveMetformin SPeWgrlteg18/28/2020No Inactive DateActive Problems Condition Codes Effective Dates Condition St atus High risk medication use ICD-10: Z79.899 ICD-9: V58.69009/15/2022ctiveRecurrent major depressive disorder, in partial remissionICD-10: F33.41 ICD-9: 296.3505/ctiveHyperlipidemia associated with type 2 diabetes mellitusICD-10: E11.69 ICD-9: 250.8004ctiveLower extremity edemaICD-10: R60.0 ICD-9: 782.304/ctiveStage 2 chronic 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ICD-10: E11.22 ICD-9: 250.4004/ctiveType 2 diabetes mellitus with diabetic polyneuropathy, with long-term current use of insulinICD-10: E11.42 ICD-9: 250.6004/ctiveAmputated toe of right footICD-10: S98.131A ICD-9: 895.003/ctiveCoronary artery disease involving [place] coronary artery of [place] heart, angina presence unspecifiedICD-10: I25.10 ICD-9: 414.0103/ctiveOnychogryposisICD-10: L60.2 ICD-9: 703.803/ctivePre-op evaluationICD-10: Z01.818 ICD-9: V72.8403/ctiveSecondary hypertensionICD-10: I15.9 ICD-9: 405.9903/ctiveCandidiasis, intertrigoICD-10: B37.2 ICD-9: 112.302/ctiveHypertensive heart disease without heart failureICD- 10: I11.9 ICD-9: 402.9002/ctiveMajor depression, recurrentICD-10: F33.9 ICD-9: 296.3002/ctiveVitamin D deficiencyICD-10: E55.9 ICD-9: 268.912/ctiveShortness of breathICD-10: R06.02 ICD-9: 786.0511/ctiveSeizure disorderICD-10: G40.909 ICD-9: 345.9011/ctiveCellulitisICD-10: L03.90 ICD-9: 682.910/ctiveReducible umbilical herniaICD-10: K42.9 ICD-9: 553.110/ctiveBMI 60.0-69.9, adultICD-10: Z68.44 ICD-9: V85.4410/ctiveInappropriate sexual behaviorICD-10: Z72.89 ICD-9: 312.8910/ctiveHx of deep venous thrombosisICD-10: Z86.718 ICD-9: V12.5109/ctiveHypercoagulable stateICD-10: D68.59 ICD-9: 289.8109/ctiveParaparesis of both lower limbsICD-10: G82.20 ICD-9: 344.109/ctivePVD (peripheral vascular disease)ICD-10: I73.9 ICD-9: 443.909/2ActiveDepressionICD-10: F32.9 ICD-9: 24878/2ResolvedDVT (deep venous thrombosis)ICD-10: I82.409 ICD-9: 453.4009/2ResolvedEncounter for immunizationICD-10: Z23 ICD-9: V03.89092ResolvedLong term (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 insulinICD-10: Z79.4 2ResolvedMuscular painICD-10: M79.10 ICD-9: 729.1092ResolvedPain of right heelICD-10: M79.671 ICD-9: 729.509/2ResolvedDandruff in adultICD-10: L21.0 ICD-9: 690.18082ActiveHypertension associated with diabetesICD-10: E11.59 ICD-9: 250.80082ResolvedHistory of anemia due to CKDICD-10: N18.9 ICD-9: 585.907/2ActiveStage 2 chronic kidney diseaseICD-10: N18.2 ICD-9: 585.207/2ActiveGout due to renal impairmentICD-10: M10.30 ICD-9: 274.1006/2ActivePreventative health careICD-10: Z00.00 ICD-9: V70.006ctiveLearning disabilityICD-10: F81.9 ICD-9: 315.212/ctiveSkin tagICD-10: L91.8 ICD-9: 701.911/ctiveCallus of heelICD-10: L84 ICD-9: 14959/ctiveImpacted cerumen, left earICD-10: H61.22 ICD-9: 380.408/ctiveContact with [...] Z20.828 ICD-9: V01.7902esolvedHyperhidrosis of palmsICD-10: L74.512 ICD-9: 705.3560SuplylRfeossvdZcmkzpq01/28/2020ActiveDiabetes mellitus Type 3Vsxaoeo56/28/2020ActiveAnemia in chronic kidney diseaseICD-10: D63.1 02/12/2020ResolvedHyperlipidemia, unspecifiedICD-10: E78.509Resolved Medications Medication Codes Instructions Start Date Stop Date Status Fill Instructions Accu-Chek Guide test strips RxNorm: Use 1 Test Strip QID 09/15/19 23 //2 024 Active ok to substitute with any covered alternative test strip Lancets,Thin 28 gauge RxNorm: Use 1 as directed QID 09/15/19 23 024 Active torsemide 20 mg tablet RxNorm: 279206 Take 1 Tablet(s) Oral BID 09/09/19 23 024 Active d/c once daily dosing carvedilol 25 mg tablet RxNorm: 800710 Take 1 Tablet(s) Oral QD 08/25/19 23 024 Active pregabalin 150 mg capsule RxNorm: 363072 1 Capsule(s) Oral HS at bed time 08/18/19 23 023 Active pregabalin 100 mg capsule RxNorm: 033824 1 Capsule(s) Oral QAM every morning 08/18/19 23 023 Active lisinopril 20 mg tablet RxNorm: 618133 Give 1 Tablet(s) Oral QD 07/28/19 23 023 Inactive carvedilol 25 mg tablet RxNorm: 957122 1 Tablet(s) Oral QD 07/28/19 23 023 Inactive Lyrica 150 mg capsule RxNorm: 354925 Take 1 Capsule(s) Oral QHS every night at bedtime 07/19/19 23 023 Inactive d/c 100mg dose Diflucan 150 mg tablet RxNorm: 899813 Take 1 Tablet(s) Oral QD repeat on day 3 and 6 07/19/19 23 023 Inactive pregabalin 100 mg capsule RxNorm: 082930 Take 1 Capsule(s) Oral QAM every morning 07/19/19 23 023 Inactive Humulin R Regular U-100 Insulin 100 unit/mL injection solution RxNorm: 618830 85 Unit(s) Injection TID 07/13/19 23 023 Inactive gatifloxacin 0.5 % eye drops RxNorm: 891056 Instill 1 Drop(s) as directed TID Instill 1 drop in to affected eye(s) starting 1 day prior to surgery and continue until gone (do not exceed 4 weeks). 07/13/19 23 023 Inactive carvedilol 25 mg tablet RxNorm: 841556 2 Tablet(s) Oral BID 07/13/19 23 023 Inactive ketorolac 0.5 % eye drops RxNorm: 512277 Instill 1 Drop(s) as directed QID Instill 1 drop into affected eye(s) 4 times daily starting 1 day prior to surgery and continue until gone (do not exceed 4 weeks). 07/13/19 23 023 Inactive Diflucan 150 mg tablet RxNorm: 749687 Take 1 Tablet(s) Oral QD repeat on day 3 and 6 06/30/19 23 023 Inactive Accu-Chek Guide test strips RxNorm: Use 1 Test Strip QID Use 1 test strip to monitor blood glucose 4 times daily and as needed. Dx:E11.42. 06/23/19 23 023 Inactive ok to substitute with any covered alternative test strip dextromethorphan-gu aifenesin 10 mg-100 mg/5 mL oral liquid RxNorm: 763814 Take 10 Milliliter(s) Oral every 4 hours as needed for cough 06/19/19 23 023 Inactive dextromethorphan-gu aifenesin 10 mg-100 mg/5 mL oral liquid RxNorm: 771604 Take 10 Milliliter(s) Oral every 4 hours as needed for cough 06/19/19 23 023 Inactive Lyrica 150 mg capsule RxNorm: 370314 Take 1 Capsule(s) Oral QHS every night at bedtime 06/18/19 23 023 Inactive d/c 100mg dose aripiprazole 15 mg tablet RxNorm: 915394 1/2 TAB (7.5MG) ORALLY DAILY (DX:MAJOR DEPRESSIVE DISORDER) 06/05/19 23 023 Inactive pregabalin 100 mg capsule RxNorm: 295080 1 Capsule(s) Oral QAM every morning 06/02/19 23 023 Inactive Banophen 50 mg capsule RxNorm: 6608661 Take 1 Capsule(s) Oral Q6H every 6 hours as needed 05/19/19 23 No Stop Date Active Novolog Flexpen U-100 Insulin aspart 100 unit/mL (3 mL) subcutaneous RxNorm: 2131518 Inject 10 Unit(s) Subcutaneous QHS every night at bedtime with nighttime snack 04/08/20 22 022 Inactive Novolog Flexpen U-100 Insulin aspart 100 unit/mL (3 mL) subcutaneous RxNorm: 8085875 Inject 42 Unit(s) Subcutaneous TID in addition to sliding scale 04/08/20 022 Inactive d/c 36u albuterol sulfate HFA 90 mcg/actuation aerosol inhaler RxNorm: 8802887 Take 2 Puff(s) Inhalation Q4H every four hours as needed as needed for SOB, cough, or wheezing 04/07/20 030 Active Banophen 50 mg capsule RxNorm: 0248342 Take 1 Capsule(s) Oral Q6H every 6 hours as needed 04/06/20 023 Inactive diphenhydramine 50 mg tablet RxNorm: 1934200 Take 1 Tablet(s) Oral Q6H every 6 hours as needed 04/06/20 022 Inactive diphenhydramine 50 mg tablet RxNorm: 3963268 1 Tablet(s) Oral Q6H every 6 hours as needed 04/06/20 022 Inactive Abilify 15 mg tablet RxNorm: 471497 1/2 Tablet(s) Oral QD 03/10/20 023 Inactive Shingrix (PF) 50 mcg/0.5 mL intramuscular suspension, kit RxNorm: 4897165 Administer 1/2 Milliliter(s) Intramuscular QD one time shingrix step 2 ( step 1 given 11/04/21) WITH needle - Nursing please administer upon arrival and once administered 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, 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, 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, and lot# so we can update [facility] 02/18/20 22 022 Inactive dispense with needle Shingrix (PF) 50 mcg/0.5 mL intramuscular suspension, kit RxNorm: 6990814 Administer 1/2 Milliliter(s) Intramuscular QD one time shingrix step 2 ( step 1 given 11/04/21) WITH needle - Nursing please administer upon arrival and once administered 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, 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, 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, and lot# so we can update [facility] 02/18/20 22 022 Inactive dispense with needle acetaminophen 500 mg tablet RxNorm: 791655 Take 1 Tablet(s) Oral TID 01/08/20 22 023 Active d/c PRN order polyethylene glycol 3350 17 gram/dose oral powder RxNorm: 888144 Take 17=1 capful Gram(s) Oral QD mix with 4-8oz of liquid 01/08/20 22 023 Active take this in addition to BID prn order Lyrica 100 mg capsule RxNorm: 748181 Take 1 Capsule(s) Oral QAM every morning 01/08/20 22 022 Inactive d/c 50mg dose Lyrica 150 mg capsule RxNorm: 656819 Take 1 Capsule(s) Oral QHS every night at bedtime 01/08/20 22 023 Inactive d/c 100mg dose Abilify 5 mg tablet RxNorm: 953669 Take 1 Tablet(s) Oral QD take 1 tab po QD #30 refill 5 dx: MDD 12/12/19 22 022 Inactive Abilify 5 mg tablet RxNorm: 865896 Take 1 Tablet(s) Oral QD take 1 tab po QD #30 refill 5 dx: MDD 12/12/19 22 022 Inactive chlorthalidone 25 mg tablet RxNorm: 123768 Take 1 Tablet(s) Oral QAM every morning 12/10/19 22 023 Active Novolog Flexpen U-100 Insulin aspart 100 unit/mL (3 mL) subcutaneous RxNorm: 8288092 Inject 42 Unit(s) Subcutaneous TID in addition to sliding scale 12/10/19 22 022 Inactive d/c 36u pregabalin 50 mg capsule RxNorm: 604244 Take 1 Capsule(s) Oral QAM every morning 11/12/19 22 022 Inactive tetanus-diphtheria toxoids-Td 2 Lf unit-2 Lf unit/0.5 mL IM suspension RxNorm: 139 Take 0.5 Miscellaneous Intramuscular 11/12/19 22 022 Inactive need tdap - nursing to administer upon arrival pregabalin 50 mg capsule RxNorm: 332215 Take 1 Capsule(s) Oral QAM every morning 10/16/19 22 022 Inactive pregabalin 50 mg capsule RxNorm: 910566 Take 1 Capsule(s) Oral QAM every morning 10/16/19 22 022 Inactive pregabalin 50 mg capsule RxNorm: 015466 1 Capsule(s) Oral QAM every morning 10/15/19 22 022 Inactive Shingrix (PF) 50 mcg/0.5 mL intramuscular suspension, kit RxNorm: 7184509 Administer 1/2 Milliliter(s) Intramuscular one time Nursing please administer upon arrival and once administered 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 10/09/19 22 022 Inactive shingrix step 1 cholecalciferol (vitamin D3) 1,250 mcg (50,000 unit) capsule RxNorm: 114148 Take 1 Capsule(s) Oral QW once a [...] aspart 100 unit/mL (3 mL) subcutaneous RxNorm: 7094181 Inject 10 Unit(s) Subcutaneous QHS every night at bedtime with nighttime snack 10/08/19 22 022 Inactive Shingrix (PF) 50 mcg/0.5 mL intramuscular suspension, kit RxNorm: 0649484 ADMINISTER 2-DOSE SERIES PER CDC GUIDELINES 10/08/19 22 05/23/2 022 Active Shingrix (PF) 50 mcg/0.5 mL intramuscular suspension, kit RxNorm: 6293231 ADMINISTER 2-DOSE SERIES PER CDC GUIDELINES 10/08/19 22 Inactive Novolog Flexpen U-100 Insulin aspart 100 unit/mL (3 mL) subcutaneous RxNorm: 7229148 Inject 36 Unit(s) Subcutaneous TID in addition to sliding scale 10/08/19 Inactive Novofine Autocover 30 gauge x 1/3 needle RxNorm: Use 1 Miscellaneous UD as directed Use 1 needle as directed to administer insulin 5 times a day Dx:E11.42. 10/03/19 22 Inactive ok to substitute with any covered alternative pen needle benzoyl peroxide 10 % topical cleanser RxNorm: 707703 Apply 1 Application Topical QD apply to face, wash rinse and dry once daily (may change to QOD if drying) 08/19/19 Inactive (%covered by insurance) #60ml refill 11 dx: acne benzoyl peroxide 10 % topical cleanser RxNorm: 659329 Apply 1 Application Topical QD apply to face, wash rinse and dry once daily (may change to QOD if drying) 08/19/19 022 Inactive (%covered by insurance) #60ml refill 11 dx: acne benzoyl peroxide 10 % topical cleanser RxNorm: 052983 Apply 1 Application Topical QD apply to face, wash rinse and dry once daily (may change to QOD if drying) 08/19/19 022 Inactive (%covered by insurance) #60ml refill 11 dx: acne Lyrica 50 mg capsule RxNorm: 188037 Take 1 Capsule(s) Oral QAM every morning Take 1 capsule by mouth once daily 08/19/19 22 022 Inactive benzoyl peroxide 10 % topical cleanser RxNorm: 176064 Apply 1 Application Topical QD apply to face, wash rinse and dry once daily (may change to QOD if drying) 08/19/19 22 022 Inactive (%covered by insurance) #60ml refill 11 dx: acne Lyrica 100 mg capsule RxNorm: 204282 Take 1 Capsule(s) Oral QHS every night at bedtime Take 1 capsule by mouth once daily at bedtime 08/19/19 22 022 Inactive Lyrica 100 mg capsule RxNorm: 314250 Take 1 Capsule(s) Oral QHS every night at bedtime Take 1 capsule by mouth once daily at bedtime 08/16/19 22 022 Inactive Lyrica 50 mg capsule RxNorm: 440836 Take 1 Capsule(s) Oral QAM every morning Take 1 capsule by mouth once daily 08/16/19 22 022 Inactive Levemir FlexTouch U-100 Insulin 100 unit/mL (3 mL) subcutaneous pen RxNorm: 501829 Inject 86 Unit(s) Subcutaneous BID 08/05/19 22 022 Inactive d/c 83units BID Lyrica 100 mg capsule RxNorm: 869722 Take 1 Capsule(s) Oral QHS every night at bedtime Take 1 capsule by mouth once daily at bedtime 07/14/19 22 022 Inactive Lyrica 50 mg capsule RxNorm: 573564 Take 1 Capsule(s) Oral QAM every morning Take 1 capsule by mouth once daily 07/14/19 22 022 Inactive Levemir FlexTouch U-100 Insulin 100 unit/mL (3 mL) subcutaneous pen RxNorm: 087602 Inject 83 Unit(s) Subcutaneous BID 07/08/19 22 [...] 30 mg tablet,extended release 24 hr RxNorm: 106394 Take 1 Tablet(s) Oral QD 05/05/20 No Stop Date Active hydralazine 50 mg tablet RxNorm: 048608 Take 1 Tablet(s) Oral QID 05/05/20 022 Inactive venlafaxine ER 225 mg tablet,extended release 24 hr RxNorm: 396964 Take 1 Tablet(s) Oral QD 05/05/20 021 Inactive venlafaxine ER 225 mg tablet,extended release 24 hr RxNorm: 469057 Take 1 Tablet(s) Oral QD 05/05/20 022 Inactive hydralazine 50 mg tablet RxNorm: 402048 Take 1 Tablet(s) Oral QID 05/05/20 21 021 Inactive aspirin 81 mg tablet,delayed release RxNorm: 255761 Take 1 Tablet(s) Oral QD 03/31/20 Inactive Zetia 10 mg tablet RxNorm: 127485 Take 1 Tablet(s) Oral QD 03/31/20 21 022 Inactive Vitamin D2 1,250 mcg (50,000 unit) capsule RxNorm: 1032257 Take 1 Capsule(s) Oral QW once a week x 12 weeks 03/31/20 022 Inactive Vitamin D2 1,250 mcg (50,000 unit) capsule RxNorm: 6758647 Take 1 Capsule(s) Oral QW once a week 03/31/20 Inactive Zetia 10 mg tablet RxNorm: 151479 Take 1 Tablet(s) Oral QD 03/31/20 Inactive hydralazine 25 mg tablet RxNorm: 412864 Take 1 Tablet(s) Oral QID 03/31/20 021 Inactive hydralazine 25 mg tablet RxNorm: 585869 Take 1 Tablet(s) Oral QID 03/31/20 021 Inactive hydralazine 10 mg tablet RxNorm: 837652 Take 1 Tablet(s) Oral QID 03/03/20 021 Inactive cephalexin 500 mg tablet RxNorm: 296769 Take 1 Tablet(s) Oral QID 02/27/20 021 Inactive cephalexin 500 mg tablet RxNorm: 462980 Take 1 Tablet(s) Oral QID 02/27/20 021 Inactive lisinopril 40 mg tablet RxNorm: 519501 Take 1 Tablet(s) Oral QD 02/11/20 023 Inactive Eliquis 5 mg tablet RxNorm: 2717519 Take 1 Tablet(s) Oral BID 01/05/20 022 Inactive Eliquis 5 mg tablet RxNorm: 5212445 Take 2 Tablet(s) Oral QD 01/01/20 021 Inactive Lyrica 50 mg capsule RxNorm: 475450 Take 1 Capsule(s) Oral QAM every morning 12/24/19 021 Inactive Lyrica 100 mg capsule RxNorm: 118422 Take 1 Capsule(s) Oral QHS every night at bedtime 12/24/19 21 021 Inactive clotrimazole 1 % topical cream RxNorm: 350911 Apply to right foot and toes Topical BID 12/04/19 21 023 Inactive metoprolol succinate ER 200 mg tablet,extended release 24 hr RxNorm: 935750 Take 1 Tablet(s) Oral QD 07/20 023 Inactive ciprofloxacin 500 mg tablet RxNorm: 340433 Take 1 Tablet(s) Oral QD 11/30/19 021 Inactive DX ofloxacin otic drops Accu-Chek Guide test strips RxNorm: USE 1 TO CHECK GLUCOSE 4 TIMES DAILY AND NEEDED 11/15/19 21 023 Inactive Blood Glucose Test strips RxNorm: Use 1 Test Strip QID at PRN 11/05/19 21 023 Inactive E11.42 lisinopril 30 mg tablet RxNorm: 656381 Take 1 Tablet(s) Oral QD 10/30/19 021 Inactive lisinopril 20 mg tablet RxNorm: 965338 Take 1 Tablet(s) Oral QD 10/23/19 021 Inactive lisinopril 20 mg tablet RxNorm: 551987 Take 1 Tablet(s) Oral QD 10/23/19 021 Inactive lisinopril 10 mg tablet RxNorm: 178076 Take 1 Tablet(s) Oral QD 10/02/19 021 Inactive icosapent ethyl 1 gram capsule RxNorm: 2597715 Take 2 Capsule(s) (2 gm) Oral BID with meals 09/12/19 022 Inactive Okay to dispense one 2gm tab if you have that available. icosapent ethyl 1 gram capsule RxNorm: 4127683 Take 2 Capsule(s) Oral BID 09/12/19 021 Inactive Okay to dispense one 2gm tab if you have that available. amlodipine 10 mg tablet RxNorm: 368052 Take 1 Tablet(s) Oral QD 09/04/19 022 Inactive aspirin 81 mg tablet,delayed release RxNorm: 639757 Take 1 Tablet(s) Oral QD 09/04/19 021 Inactive Levemir FlexTouch U-100 Insulin 100 unit/mL (3 mL) subcutaneous pen RxNorm: 028141 Inject 150 Unit(s) Subcutaneous BID 09/04/19 21 022 Inactive venlafaxine ER 150 mg tablet,extended release 24 hr RxNorm: 992141 Take 1 Tablet(s) Oral QD 09/04/19 021 Inactive clotrimazole-betame thasone 1 %-0.05 % topical cream RxNorm: 640747 Apply to rash on red area on left abdomen/chest Topical BID 08/10/19 21 021 Inactive amlodipine 5 mg tablet RxNorm: 513488 Take 1 Tablet(s) Oral QD 07/31/19 Inactive cephalexin 500 mg tablet RxNorm: 064144 Take 1 Tablet(s) Oral BID BID - Twice Daily 07/31/19 21 021 Inactive Start 08/01/20 pantoprazole 40 mg tablet,delayed release RxNorm: 661805 Take 1 Tablet(s) Oral QAM every morning 07/08/19 022 Inactive senna 8.6 mg tablet RxNorm: 879666 Take 1 Tablet(s) Oral QD 07/08/19 022 Inactive pravastatin 80 mg tablet RxNorm: 927535 Take 1 Tablet(s) Oral QHS every night at bedtime 07/08/19 022 Inactive carbamazepine 200 mg tablet RxNorm: 648531 Take 1 Tablet(s) Oral BID 07/08/19 022 Inactive torsemide 20 mg tablet RxNorm: 999545 Take 1 Tablet(s) Oral QD 07/08/19 023 Inactive clopidogrel 75 mg tablet RxNorm: 035293 Take 1 Tablet(s) Oral QD 07/08/19 021 Inactive Blood Glucose Test strips RxNorm: Use 1 Test Strip QID at PRN 07/08/19 21 021 Inactive E11.42 Novolog Flexpen U-100 Insulin aspart 100 unit/mL (3 mL) subcutaneous RxNorm: 8089961 Administer per sliding scale Milliliter(s) Subcutaneous TID 151-200: 10 u; 201-250: 20 u; 251-300: 30 u; 301-350: 40 u; 351-400: 50 u. 07/08/19 21 022 Inactive lisinopril 5 mg tablet RxNorm: 856305 Take 1 Tablet(s) Oral QD 07/08/19 21 021 Inactive Novolog Flexpen U-100 Insulin aspart 100 unit/mL (3 mL) subcutaneous RxNorm: 0969445 Inject 85 Unit(s) Subcutaneous TID 07/08/19 022 Inactive clotrimazole 1 % topical cream RxNorm: 793278 Apply to bilateral groin areas Topical BID 07/08/19 022 Inactive metoprolol succinate ER 200 mg tablet,extended release 24 hr RxNorm: 320925 Take 1 Tablet(s) Oral QD 07/08/19 021 Inactive Vitamin D3 25 mcg (1,000 unit) tablet RxNorm: 431756 Take 1 Tablet(s) Oral QD 07/08/19 Inactive isosorbide dinitrate 30 mg tablet RxNorm: 123433 Take 1 Tablet(s) Oral QD 07/08/19 021 Inactive Levemir FlexTouch U-100 Insulin 100 unit/mL (3 mL) subcutaneous pen RxNorm: 972453 Inject 140 Unit(s) Subcutaneous BID 07/08/19 Inactive venlafaxine 75 mg tablet RxNorm: 211803 Take 1 Tablet(s) Oral QD 07/08/19 021 Inactive acetaminophen 500 mg tablet RxNorm: 396339 Take 1 Tablet(s) Oral TID as needed for headache 06/18/19 Inactive acetaminophen 500 mg tablet RxNorm: 367040 Take 1 Tablet(s) Oral TID as needed for headache 06/18/19 021 Inactive Lyrica 100 mg capsule RxNorm: 407263 Take 1 Capsule(s) Oral QHS every night at bedtime 06/11/19 021 Inactive Lyrica 50 mg capsule RxNorm: 354553 Take 1 Capsule(s) Oral QAM every morning 06/10/19 021 Inactive hydrocortisone 2.5 % topical cream RxNorm: 383771 Apply to bilateral groin creases Topical BID 05/15/20 20 021 Inactive clotrimazole 1 % topical cream RxNorm: 953377 Apply to bilateral groin areas Topical BID 05/15/20 20 Inactive Lyrica 50 mg capsule RxNorm: 510045 Take 1 Capsule(s) Oral QAM every morning 05/14/20 20 Inactive Lyrica 100 mg capsule RxNorm: 490213 Take 1 Capsule(s) Oral QHS every night [...] Inactive Nystop 100,000 unit/gram topical powder RxNorm: 890121 Apply to abd folds, under breasts and L side of groin Topical BID x 14 days, then BID PRN 04/08/20 20 Inactive dx: yeast dermatitis Lyrica 100 mg capsule RxNorm: 359567 Take 1 Capsule(s) Oral QHS every night at bedtime 03/13/20 20 Inactive Lyrica 50 mg capsule RxNorm: 874335 Take 1 Capsule(s) Oral QAM every morning 03/13/20 20 Inactive ketoconazole 2 % shampoo RxNorm: 917213 Apply Topical two times a week with showers 03/11/20 20 Inactive cholecalciferol (vitamin D3) 50 mcg (2,000 unit) tablet RxNorm: 649474 Take 1 Tablet(s) Oral QD 03/11/20 20 Inactive Zetia 10 mg tablet RxNorm: 576843 Take 1 Tablet(s) Oral QD 03/07/20 20 Inactive Zetia 10 mg tablet RxNorm: 979401 Take 1 Tablet(s) Oral QD 03/07/20 20 Inactive Lyrica 50 mg capsule RxNorm: 844550 Take 1 Capsule(s) Oral QAM every morning 02/15/20 Inactive Lyrica 100 mg capsule RxNorm: 023312 Take 1 Capsule(s) Oral QHS every night at bedtime 02/15/20 Inactive Lyrica 100 mg capsule RxNorm: 669882 Take 1 Capsule(s) Oral QHS every night at bedtime 02/15/20 Inactive Lyrica 50 mg capsule RxNorm: 777503 Take 1 Capsule(s) Oral QAM every morning 02/15/20 Inactive venlafaxine ER 75 mg capsule,extended release 24 hr RxNorm: 111757 Take 3 Capsule(s) Oral QD 06/12/2021 Activepolyethylene glycol 3350 17 gram/dose oral powderRxNorm: 479162Cwlj 17=1 capful Gram(s) Oral BID as needed mix with 4-8oz of xsipsd2506/12/2021ctive icosapent ethyl 1 gram capsuleRxNorm: 4278151Gwsm 2 Capsule(s) (2 gm) Oral BID with meals/InactiveOkay to dispense one 2gm tab if you have that available.metoprolol succinate ER 200 mg tablet,extended release 24 hr RxNorm: 387949Ahtn 1 Tablet(s) Oral QD08/11/2022ctiveloperamide 2 mg capsule RxNorm: 351979Ayow 1 Capsule(s) Oral QID as pplrjk1706/12/2021ctivehydralazine 50 mg tabletRxNorm: 071515Dwmk 1 Tablet(s) Oral QID08/11/2022ctiveLevemir FlexTouch U-100 Insulin 100 unit/mL (3 mL) subcutaneous penRxNorm: 669977Fizmve 80 Unit(s) Subcutaneous BID/InactiveNovolog Flexpen U-100 Insulin aspart 100 unit/mL (3 mL) subcutaneousRxNorm: 6517537Cvztus 30 Unit(s) Subcutaneous TID with mealsInactive Medication [...] Performer Location Location Address Codes Cristiano e ([id number]) Home or Residence Vi sit Est Pt - Moderate Level, 40 mins Diagnosis: Recurrent major depressive disorder, in partial remission[ICD10: F33.41] Diagnosis: High risk medication use[ICD10: Z79.899]Sandra Wiseman on [id number] [place] [id number]-8: [id number]/06/2022 Plan of Care Planned Activity Notes Codes Status Date Referral: [facility] Nathan WPtel: [address] [id number] USReferralRecords Wkrhhpud87/08/2023Patient Education: Patient Medication DuwgkxwOthnamojo90/02/2023Patient Education: Influenza VaccineCompleted 09/15/2022ppointment: Rosalina Shirley WPtel: [address] [place], [place] [id number] USF/08/11/2022ppointment: Rosalina Shirley WPtel: [address] [facility] [address] [id number] USF/07/14/2022ppointment: Rosalina Shirley WPtel: [address] [facility] 300 [id number] USF/2Referral: [facility] WPtel: [address] [facility] [address] [id number] EZOnemwbfeYjihxsrcu68/12/2022Referral: General CardiologyReferralCompleted 01/03/2021eferral: General PsychologistReferralClosed Instructions Comment Date Leonid is a Male being seen living at [facility]. Initial BPS visit 01/2020. PMHx including DMII, CAD w/ 5 stents, Depression, Seizure Disorder and CKD stage 3. He moved into [facility] in 12/2019 but after a hospitalization 05/2021 he moved to the [facility] to have closer nursing attention. Sister Jyotsna involved in his care cell# [phone] Guardian: Don (rosalina met in person 09/01/21), now has Lexii (same group as don)Lab Schedule: * 10/06/2022 High risk medication use Tolerating current dosing of Abilify.?? Encouraged patient to be more active in management of mood due to potential side effects of medications related to potential metabolic side effects.? Depression Denied referral offered for psychotherapy today.? Encouraged patient to do activities that he is able to do instead of being dependent upon staff.?? This will also help him to become more active and engage in self care.? Continue current medication regimen. .09/15/2022
--- OUTSIDE RECORDS SUMMARY | 2022-11-09 23:18 | XMS_ITS | CCD ---
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 Hand Tufter Name Role Phone Tapan Shirley PA-C Primary Care Provider Unavailabl e Tapan Shirley PA-C Chronic Care Management Unavaila ble Summary Purpose DataExchange Insurance Providers Payer name Policy type / Coverage type Covered green party ID Effective Begin Date Effective End Date Medicare [place] Medicare Part B [id number] Unknown Unknown Medicaid [place] Medicare Part B [id number] Unknown Unknown Family history Runs in the family Diagnosis Age At Onset No Known Diseases N/A Social History Social History Element Codes Description Effec tive Dates Living arrangements Unknown Usp 09/03/[address]: 0462050 Non-Smoker / No History of Smoking 09/02/[address]: 852909863 No Alcohol Consum ption 09/02/2020 Allergies, Adverse Reactions, Alerts Substance Reaction Codes Entered Date Inactivated Date Status LISINOPRIL RxNorm: 9945268No Inactive DateActiveMetformin CEgYfjoeos91/28/2020No Inactive DateActive Problems Condition Codes Effective Dates Condition St atus Depression ICD-10: F32.9 ICD-9: 16507ctiveHyperlipidemia associated with type 2 diabetes mellitusICD-10: E11.69 [...] N18.2 ICD-9: 585.210/ctiveCallus of heelICD-10: L84 ICD-9: 15187/ctiveCoronary artery disease involving [place] coronary artery of [place] heart, angina presence unspecifiedICD-10: I25.10 ICD-9: 414.0109ctiveImpacted [...] Z20.828 ICD-9: V01.7902esolvedHyperhidrosis of palmsICD-10: L74.512 ICD-9: 705.5803AvahlyVkhfvdjrHvigiun48/28/2020ActiveDiabetes mellitus Type 6Rpuyqnh48/28/2020ActiveAnemia in chronic kidney diseaseICD-10: D63.1 02/12/2020ResolvedHyperlipidemia, unspecifiedICD-10: E78.509Resolved Medications Medication Codes Instructions Start Date Stop Date Status Fill Instructions Accu-Chek Guide Glucose Meter RxNorm: Use 1 [...] any covered alternative pen needle Accu-Chek Guide Glucose Meter RxNorm: Use 1 Miscellaneous UD as directed Use glucose meter to monitor blood glucose 4 times daily and as needed. Dx:E1106/05/19 No Stop Date Active ok to substitute with any covered alternative meter Accu-Chek Guide test strips RxNorm: Use 1 [...] test strip hydralazine 50 mg tablet RxNorm: 911111 Take 1 Tablet(s) Oral QID 05/05/20 21 022 Inactive venlafaxine ER 225 mg tablet,extended release 24 hr RxNorm: 127156 Take 1 Tablet(s) Oral QD 05/05/20 21 022 Inactive isosorbide mononitrate ER 30 mg tablet,extended release 24 hr RxNorm: 673366 Take 1 Tablet(s) Oral QD 05/05/20 No Stop Date Active venlafaxine ER 225 mg tablet,extended release 24 hr RxNorm: 465803 Take 1 Tablet(s) Oral QD 05/05/20 21 021 Inactive hydralazine 50 mg tablet RxNorm: 212759 Take 1 Tablet(s) Oral QID 05/05/20 21 Inactive aspirin 81 mg tablet,delayed release RxNorm: 251440 Take 1 Tablet(s) Oral QD 03/31/20 21 022 Inactive Vitamin D2 1,250 mcg (50,000 unit) capsule RxNorm: 0943743 Take 1 Capsule(s) Oral QW once a week x 12 weeks 03/31/20 21 022 Inactive Zetia 10 mg tablet RxNorm: 690356 Take 1 Tablet(s) Oral QD 03/31/20 022 Inactive Vitamin D2 1,250 mcg (50,000 unit) capsule RxNorm: 9860754 Take 1 Capsule(s) Oral QW once a week 03/31/20 Inactive Zetia 10 mg tablet RxNorm: 780640 Take 1 Tablet(s) Oral QD 03/31/20 Inactive hydralazine 25 mg tablet RxNorm: 592829 Take 1 Tablet(s) Oral QID 03/31/20 021 Inactive hydralazine 25 mg tablet RxNorm: 591692 Take 1 Tablet(s) Oral QID 03/31/20 Inactive hydralazine 10 mg tablet RxNorm: 228782 Take 1 Tablet(s) Oral QID 03/03/20 021 Inactive cephalexin 500 mg tablet RxNorm: 518767 Take 1 Tablet(s) Oral QID 02/27/20 021 Inactive cephalexin 500 mg tablet RxNorm: 489404 Take 1 Tablet(s) Oral QID 02/27/20 021 Inactive lisinopril 40 mg tablet RxNorm: 538472 Take 1 Tablet(s) Oral QD 02/11/20 023 Inactive Eliquis 5 mg tablet RxNorm: 7040903 Take 1 Tablet(s) Oral BID 01/05/20 022 Inactive Eliquis 5 mg tablet RxNorm: 0307000 Take 2 Tablet(s) Oral QD 01/01/20 21 021 Inactive Lyrica 50 mg capsule RxNorm: 580952 Take 1 Capsule(s) Oral QAM every morning 12/24/19 21 021 Inactive Lyrica 100 mg capsule RxNorm: 935187 Take 1 Capsule(s) Oral QHS every night at bedtime 12/24/19 21 021 Inactive clotrimazole 1 % topical cream RxNorm: 155931 Apply to right foot and toes Topical BID 12/04/19 21 023 Inactive metoprolol succinate ER 200 mg tablet,extended release 24 hr RxNorm: 363424 Take 1 Tablet(s) Oral QD 12/04/19 023 Inactive ciprofloxacin 500 mg tablet RxNorm: 547056 Take 1 Tablet(s) Oral QD 11/30/19 021 Inactive DX ofloxacin otic drops Accu-Chek Guide test strips RxNorm: USE 1 TO CHECK GLUCOSE 4 TIMES DAILY AND NEEDED 11/15/19 023 Inactive Blood Glucose Test strips RxNorm: Use 1 Test Strip QID at PRN 11/05/19 21 023 Inactive E11.42 lisinopril 30 mg tablet RxNorm: 326601 Take 1 Tablet(s) Oral QD 10/30/19 021 Inactive lisinopril 20 mg tablet RxNorm: 535035 Take 1 Tablet(s) Oral QD 10/23/19 021 Inactive lisinopril 20 mg tablet RxNorm: 217770 Take 1 Tablet(s) Oral QD 10/23/19 021 Inactive lisinopril 10 mg tablet RxNorm: 334331 Take 1 Tablet(s) Oral QD 10/02/19 021 Inactive icosapent ethyl 1 gram capsule RxNorm: 7121507 Take 2 Capsule(s) (2 gm) Oral BID with meals 09/12/19 022 Inactive Okay to dispense one 2gm tab if you have that available. icosapent ethyl 1 gram capsule RxNorm: 7297870 Take 2 Capsule(s) Oral BID 09/12/19 021 Inactive Okay to dispense one 2gm tab if you have that available. amlodipine 10 mg tablet RxNorm: 469395 Take 1 Tablet(s) Oral QD 09/04/19 022 Inactive Levemir FlexTouch U-100 Insulin 100 unit/mL (3 mL) subcutaneous pen RxNorm: 819444 Inject 150 Unit(s) Subcutaneous BID 09/04/19 21 022 Inactive aspirin 81 mg tablet,delayed release RxNorm: 204416 Take 1 Tablet(s) Oral QD 09/04/19 21 021 Inactive venlafaxine ER 150 mg tablet,extended release 24 hr RxNorm: 111667 Take 1 Tablet(s) Oral QD 09/04/19 Inactive clotrimazole-betame thasone 1 %-0.05 % topical cream RxNorm: 991076 Apply to rash on red area on left abdomen/chest Topical BID 08/10/19 21 021 Inactive amlodipine 5 mg tablet RxNorm: 701510 Take 1 Tablet(s) Oral QD 07/31/19 Inactive cephalexin 500 mg tablet RxNorm: 401113 Take 1 Tablet(s) Oral BID BID - Twice Daily 07/31/19 Inactive Start 08/01/20 pantoprazole 40 mg tablet,delayed release RxNorm: 543037 Take 1 Tablet(s) Oral QAM every morning 07/08/19 022 Inactive senna 8.6 mg tablet RxNorm: 111593 Take 1 Tablet(s) Oral QD 07/08/19 022 Inactive Novolog Flexpen U-100 Insulin aspart 100 unit/mL (3 mL) subcutaneous RxNorm: 4351912 Administer per sliding scale Milliliter(s) Subcutaneous TID 151-200: 10 u; 201-250: 20 u; 251-300: 30 u; 301-350: 40 u; 351-400: 50 u. 07/08/19 022 Inactive Novolog Flexpen U-100 Insulin aspart 100 unit/mL (3 mL) subcutaneous RxNorm: 0561016 Inject 85 Unit(s) Subcutaneous TID 07/08/19 022 Inactive pravastatin 80 mg tablet RxNorm: 183953 Take 1 Tablet(s) Oral QHS every night at bedtime 07/08/19 022 Inactive clotrimazole 1 % topical cream RxNorm: 200257 Apply to bilateral groin areas Topical BID 07/08/19 21 022 Inactive carbamazepine 200 mg tablet RxNorm: 773708 Take 1 Tablet(s) Oral BID 07/08/19 21 022 Inactive torsemide 20 mg tablet RxNorm: 312977 Take 1 Tablet(s) Oral QD 07/08/19 023 Inactive clopidogrel 75 mg tablet RxNorm: 023000 Take 1 Tablet(s) Oral QD 07/08/19 021 Inactive Blood Glucose Test strips RxNorm: Use 1 Test Strip QID at PRN 07/08/19 21 Inactive E11.42 lisinopril 5 mg tablet RxNorm: 088724 Take 1 Tablet(s) Oral QD 07/08/19 021 Inactive metoprolol succinate ER 200 mg tablet,extended release 24 hr RxNorm: 036951 Take 1 Tablet(s) Oral QD 07/08/19 021 Inactive Vitamin D3 25 mcg (1,000 unit) tablet RxNorm: 243279 Take 1 Tablet(s) Oral QD 07/08/19 021 Inactive isosorbide dinitrate 30 mg tablet RxNorm: 580872 Take 1 Tablet(s) Oral QD 07/08/19 021 Inactive Levemir FlexTouch U-100 Insulin 100 unit/mL (3 mL) subcutaneous pen RxNorm: 629246 Inject 140 Unit(s) Subcutaneous BID 07/08/19 021 Inactive venlafaxine 75 mg tablet RxNorm: 447584 Take 1 Tablet(s) Oral QD 07/08/19 021 Inactive acetaminophen 500 mg tablet RxNorm: 695425 Take 1 Tablet(s) Oral TID as needed for headache 06/18/19 021 Inactive acetaminophen 500 mg tablet RxNorm: 437939 Take 1 Tablet(s) Oral TID as needed for headache 06/18/19 021 Inactive Lyrica 100 mg capsule RxNorm: 922876 Take 1 Capsule(s) Oral QHS every night at bedtime 06/11/19 021 Inactive Lyrica 50 mg capsule RxNorm: 715889 Take 1 Capsule(s) Oral QAM every morning 06/10/19 21 021 Inactive hydrocortisone 2.5 % topical cream RxNorm: 252756 Apply to bilateral groin creases Topical BID 05/15/20 20 021 Inactive clotrimazole 1 % topical cream RxNorm: 770220 Apply to bilateral groin areas Topical BID 05/15/20 20 Inactive Lyrica 50 mg capsule RxNorm: 607350 Take 1 Capsule(s) Oral QAM every morning 05/14/20 20 Inactive Lyrica 100 mg capsule RxNorm: 845846 Take 1 Capsule(s) Oral QHS every night [...] Inactive Nystop 100,000 unit/gram topical powder RxNorm: 818329 Apply to abd folds, under breasts and L side of groin Topical BID x 14 days, then BID PRN 04/08/20 20 021 Inactive dx: yeast dermatitis Lyrica 100 mg capsule RxNorm: 514420 Take 1 Capsule(s) Oral QHS every night at bedtime 03/13/20 20 Inactive Lyrica 50 mg capsule RxNorm: 382423 Take 1 Capsule(s) Oral QAM every morning 03/13/20 20 020 Inactive ketoconazole 2 % shampoo RxNorm: 593464 Apply Topical two times a week with showers 03/11/20 20 Inactive cholecalciferol (vitamin D3) 50 mcg (2,000 unit) tablet RxNorm: 962026 Take 1 Tablet(s) Oral QD 03/11/20 20 Inactive Zetia 10 mg tablet RxNorm: 575985 Take 1 Tablet(s) Oral QD 03/07/20 Inactive Zetia 10 mg tablet RxNorm: 413152 Take 1 Tablet(s) Oral QD 03/07/20 Inactive Lyrica 50 mg capsule RxNorm: 470130 Take 1 Capsule(s) Oral QAM every morning 02/15/20 Inactive Lyrica 100 mg capsule RxNorm: 044398 Take 1 Capsule(s) Oral QHS every night at bedtime 02/15/20 Inactive Lyrica 100 mg capsule RxNorm: 110674 Take 1 Capsule(s) Oral QHS every night at bedtime 02/15/20 Inactive Lyrica 50 mg capsule RxNorm: 066302 Take 1 Capsule(s) Oral QAM every morning [...] Codes Status Date Referral: [facility] WPtel: [address], [address] [id number] [place]ReferralRecords Hyqnfjav29/08/2023Referral: [facility] WPtel: [address] [id number]/12/2022Referral: General CardiologyReferralCompleted 1Referral: General PsychologistReferralClosed Instructions Comment Date Leonid is a Male being seen living at [facility]. Initial BPS visit 01/2020. PMHx including DMII, CAD w/ 5 stents, Depression, Seizure Disorder and CKD stage 3. He moved into [facility] in 12/2019 but after a hospitalization 05/2021 he moved to the [facility] to have closer nursing attention. Sister Jyotsna involved in his care cell# [phone] Guardian: Don (tapan met in person 09/01/21), now has Lexii (same group as don)Lab Schedule: * 10/06/2022
--- OUTSIDE RECORDS SUMMARY | 2022-11-09 23:19 | XMS_ITS | CCD ---
Author Name Tapan Shirley PA-C Address [address] [address] [place] [address] Phone Organization [facility] Phone Care Team Providers Care Registered Dietetic Technician Name Role Phone Tapan Shirley PA-C Primary Care Provider Unavailabl e Tapan Shirley PA-C Chronic Care Management Unavaila ble Summary Purpose DataExchange Insurance Providers Payer name Policy type / Coverage type Covered constitution party ID Effective Begin Date Effective End Date Medicare [place] Medicare Part B [id number] Unknown Unknown Medicaid [place] Medicare Part B [id number] Unknown Unknown Family history Runs in the family Diagnosis Age At Onset No Known Diseases N/A Social History Social History Element Codes Description Effec tive Dates Living arrangements Unknown [facility] 09/03/[address]: 5584341 Non-Smoker / No History of Smoking 09/02/[address]: 743198934 No Alcohol Consum ption 09/02/2020 Allergies, Adverse Reactions, Alerts Substance Reaction Codes Entered Date Inactivated Date Status LISINOPRIL RxNorm: 5698760No Inactive DateActiveMetformin [id number] Inactive DateActive Problems Condition Codes Effective Dates Condition St atus Encounter for immunization ICD-10: Z23 ICD-9: V03.8902/ctiveCandidiasis, intertrigoICD-10: B37.2 ICD-9: 112.301/ctiveDVT (deep venous thrombosis)ICD-10: I82.409 ICD-9: 453.40006/10/2021ctiveHistory of anemia due to CKDICD-10: N18.9 ICD-9: 585.901/ctiveHyperlipidemia associated with type 2 diabetes mellitusICD-10: E11.69 ICD-9: 250.80006/10/2021ctiveHypertension associated with diabetesICD-10: E11.59 ICD-9: 250.8001ctiveStage 2 chronic 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ICD-10: E11.22 ICD-9: 250.4001ctiveStage 2 chronic kidney diseaseICD-10: N18.2 ICD-9: 585.201ctiveType 2 diabetes mellitus with diabetic polyneuropathy, with long-term current use of insulinICD-10: E11.42 ICD-9: 250.6001/ctiveDepressionICD-10: F32.9 ICD-9: 44203/ctiveLearning disabilityICD-10: F81.9 ICD-9: 315.212ctiveSeizure disorderICD-10: G40.909 ICD-9: 345.9012ctiveSkin tagICD-10: L91.8 ICD-9: 701.911/ctiveVitamin D deficiencyICD-10: E55.9 ICD-9: 268.911/ctiveCellulitisICD-10: L03.90 ICD-9: 682.910/ctiveCallus of heelICD-10: L84 ICD-9: 68098ctiveCoronary artery disease involving poarch coronary artery of [place] heart, angina presence unspecifiedICD-10: I25.10 ICD-9: 414.0109/ctiveImpacted cerumen, left earICD-10: H61.22 ICD-9: 380.408/ctiveInappropriate sexual [...] 3 unspecifiedICD-10: N18.3004esolvedDandruff in adultICD-10: L21.0 ICD-9: 690.1802ctiveContact with and (suspected) exposure to other viral communicable diseasesICD-10: Z20.828 ICD-9: V01.7907/08/2020esolvedHyperhidrosis of palmsICD-10: L74.512 ICD-9: 705.8995BcjxcfVfrplogpRsjgzig62/28/2020ActiveDiabetes mellitus Type 7Ytcgdum31/28/2020ActiveAnemia in chronic kidney diseaseICD-10: D63.1 02/12/2020ResolvedHyperlipidemia, unspecifiedICD-10: [...] test strip hydralazine 50 mg tablet RxNorm: 116199 Take 1 Tablet(s) Oral QID 05/05/20 21 Inactive isosorbide mononitrate ER 30 mg tablet,extended release 24 hr RxNorm: 134897 Take 1 Tablet(s) Oral QD 05/05/20 No Stop Date Active venlafaxine ER 225 mg tablet,extended release 24 hr RxNorm: 827026 Take 1 Tablet(s) Oral QD 05/05/20 21 021 Inactive venlafaxine ER 225 mg tablet,extended release 24 hr RxNorm: 134663 Take 1 Tablet(s) Oral QD 05/05/20 21 022 Inactive hydralazine 50 mg tablet RxNorm: 881642 Take 1 Tablet(s) Oral QID 05/05/20 21 Inactive aspirin 81 mg tablet,delayed release RxNorm: 060022 Take 1 Tablet(s) Oral QD 03/31/20 Inactive Vitamin D2 1,250 mcg (50,000 unit) capsule RxNorm: 5281181 Take 1 Capsule(s) Oral QW once a week x 12 weeks 03/31/20 022 Inactive Zetia 10 mg tablet RxNorm: 382750 Take 1 Tablet(s) Oral QD 03/31/20 Inactive Vitamin D2 1,250 mcg (50,000 unit) capsule RxNorm: 2215218 Take 1 Capsule(s) Oral QW once a week 03/31/20 Inactive Zetia 10 mg tablet RxNorm: 280616 Take 1 Tablet(s) Oral QD 03/31/20 Inactive hydralazine 25 mg tablet RxNorm: 015416 Take 1 Tablet(s) Oral QID 03/31/20 021 Inactive hydralazine 25 mg tablet RxNorm: 011624 Take 1 Tablet(s) Oral QID 03/31/20 Inactive hydralazine 10 mg tablet RxNorm: 724557 Take 1 Tablet(s) Oral QID 03/03/20 021 Inactive cephalexin 500 mg tablet RxNorm: 997004 Take 1 Tablet(s) Oral QID 02/27/20 021 Inactive cephalexin 500 mg tablet RxNorm: 989283 Take 1 Tablet(s) Oral QID 02/27/20 021 Inactive lisinopril 40 mg tablet RxNorm: 222065 Take 1 Tablet(s) Oral QD 02/11/20 023 Inactive Eliquis 5 mg tablet RxNorm: 0639230 Take 1 Tablet(s) Oral BID 01/05/20 022 Inactive Eliquis 5 mg tablet RxNorm: 1586401 Take 2 Tablet(s) Oral QD 01/01/20 21 021 Inactive Lyrica 50 mg capsule RxNorm: 205086 Take 1 Capsule(s) Oral QAM every morning 12/24/19 21 021 Inactive Lyrica 100 mg capsule RxNorm: 353023 Take 1 Capsule(s) Oral QHS every night at bedtime 12/24/19 21 021 Inactive clotrimazole 1 % topical cream RxNorm: 580383 Apply to right foot and toes Topical BID 12/04/19 21 023 Inactive metoprolol succinate ER 200 mg tablet,extended release 24 hr RxNorm: 452521 Take 1 Tablet(s) Oral QD 12/04/19 21 023 Inactive ciprofloxacin 500 mg tablet RxNorm: 489750 Take 1 Tablet(s) Oral QD 11/30/19 21 021 Inactive DX ofloxacin otic drops Accu-Chek Guide test strips RxNorm: USE 1 TO CHECK GLUCOSE 4 TIMES DAILY AND NEEDED 11/15/19 21 023 Inactive Blood Glucose Test strips RxNorm: Use 1 Test Strip QID at PRN 11/05/19 023 Inactive E11.42 lisinopril 30 mg tablet RxNorm: 768142 Take 1 Tablet(s) Oral QD 10/30/19 021 Inactive lisinopril 20 mg tablet RxNorm: 182993 Take 1 Tablet(s) Oral QD 10/23/19 21 021 Inactive lisinopril 20 mg tablet RxNorm: 147035 Take 1 Tablet(s) Oral QD 10/23/19 21 021 Inactive lisinopril 10 mg tablet RxNorm: 498669 Take 1 Tablet(s) Oral QD 10/02/19 021 Inactive icosapent ethyl 1 gram capsule RxNorm: 5528061 Take 2 Capsule(s) (2 gm) Oral BID with meals 09/12/19 022 Inactive Okay to dispense one 2gm tab if you have that available. icosapent ethyl 1 gram capsule RxNorm: 7007325 Take 2 Capsule(s) Oral BID 09/12/19 21 021 Inactive Okay to dispense one 2gm tab if you have that available. amlodipine 10 mg tablet RxNorm: 262601 Take 1 Tablet(s) Oral QD 09/04/19 21 022 Inactive aspirin 81 mg tablet,delayed release RxNorm: 029510 Take 1 Tablet(s) Oral QD 09/04/19 21 021 Inactive Levemir FlexTouch U-100 Insulin 100 unit/mL (3 mL) subcutaneous pen RxNorm: 130407 Inject 150 Unit(s) Subcutaneous BID 09/04/19 21 022 Inactive venlafaxine ER 150 mg tablet,extended release 24 hr RxNorm: 983926 Take 1 Tablet(s) Oral QD 09/04/19 21 021 Inactive clotrimazole-betame thasone 1 %-0.05 % topical cream RxNorm: 647109 Apply to rash on red area on left abdomen/chest Topical BID 08/10/19 21 Inactive amlodipine 5 mg tablet RxNorm: 864199 Take 1 Tablet(s) Oral QD 07/31/19 21 021 Inactive cephalexin 500 mg tablet RxNorm: 116137 Take 1 Tablet(s) Oral BID BID - Twice Daily 07/31/19 021 Inactive Start 08/01/20 pantoprazole 40 mg tablet,delayed release RxNorm: 626852 Take 1 Tablet(s) Oral QAM every morning 07/08/19 022 Inactive senna 8.6 mg tablet RxNorm: 426990 Take 1 Tablet(s) Oral QD 07/08/19 022 Inactive pravastatin 80 mg tablet RxNorm: 489963 Take 1 Tablet(s) Oral QHS every night at bedtime 07/08/19 022 Inactive clotrimazole 1 % topical cream RxNorm: 805340 Apply to bilateral groin areas Topical BID 07/08/19 21 022 Inactive carbamazepine 200 mg tablet RxNorm: 336495 Take 1 Tablet(s) Oral BID 07/08/19 21 022 Inactive torsemide 20 mg tablet RxNorm: 344676 Take 1 Tablet(s) Oral QD 07/08/19 21 023 Inactive clopidogrel 75 mg tablet RxNorm: 883753 Take 1 Tablet(s) Oral QD 07/08/19 21 021 Inactive Blood Glucose Test strips RxNorm: Use 1 Test Strip QID at PRN 07/08/19 21 021 Inactive E11.42 Novolog Flexpen U-100 Insulin aspart 100 unit/mL (3 mL) subcutaneous RxNorm: 0820368 Administer per sliding scale Milliliter(s) Subcutaneous TID 151-200: 10 u; 201-250: 20 u; 251-300: 30 u; 301-350: 40 u; 351-400: 50 u. 07/08/19 022 Inactive lisinopril 5 mg tablet RxNorm: 486052 Take 1 Tablet(s) Oral QD 07/08/19 21 021 Inactive Novolog Flexpen U-100 Insulin aspart 100 unit/mL (3 mL) subcutaneous RxNorm: 2235348 Inject 85 Unit(s) Subcutaneous TID 07/08/19 Inactive metoprolol succinate ER 200 mg tablet,extended release 24 hr RxNorm: 271010 Take 1 Tablet(s) Oral QD 07/08/19 Inactive Vitamin D3 25 mcg (1,000 unit) tablet RxNorm: 459979 Take 1 Tablet(s) Oral QD 07/08/19 21 021 Inactive isosorbide dinitrate 30 mg tablet RxNorm: 510836 Take 1 Tablet(s) Oral QD 07/08/19 Inactive Levemir FlexTouch U-100 Insulin 100 unit/mL (3 mL) subcutaneous pen RxNorm: 535417 Inject 140 Unit(s) Subcutaneous BID 07/08/19 Inactive venlafaxine 75 mg tablet RxNorm: 030629 Take 1 Tablet(s) Oral QD 07/08/19 Inactive acetaminophen 500 mg tablet RxNorm: 372463 Take 1 Tablet(s) Oral TID as needed for headache 06/18/19 Inactive acetaminophen 500 mg tablet RxNorm: 868564 Take 1 Tablet(s) Oral TID as needed for headache 06/18/19 Inactive Lyrica 100 mg capsule RxNorm: 594826 Take 1 Capsule(s) Oral QHS every night at bedtime 06/11/19 Inactive Lyrica 50 mg capsule RxNorm: 522539 Take 1 Capsule(s) Oral QAM every morning 06/10/19 21 021 Inactive hydrocortisone 2.5 % topical cream RxNorm: 901960 Apply to bilateral groin creases Topical BID 05/15/20 20 021 Inactive clotrimazole 1 % topical cream RxNorm: 151882 Apply to bilateral groin areas Topical BID 05/15/20 20 Inactive Lyrica 50 mg capsule RxNorm: 257979 Take 1 Capsule(s) Oral QAM every morning 05/14/20 20 Inactive Lyrica 100 mg capsule RxNorm: 543606 Take 1 Capsule(s) Oral QHS every night [...] Inactive Nystop 100,000 unit/gram topical powder RxNorm: 653519 Apply to abd folds, under breasts and L side of groin Topical BID x 14 days, then BID PRN 04/08/20 20 021 Inactive dx: yeast dermatitis Lyrica 100 mg capsule RxNorm: 213769 Take 1 Capsule(s) Oral QHS every night at bedtime 03/13/20 20 020 Inactive Lyrica 50 mg capsule RxNorm: 211718 Take 1 Capsule(s) Oral QAM every morning 03/13/20 20 020 Inactive ketoconazole 2 % shampoo RxNorm: 784261 Apply Topical two times a week with showers 03/11/20 20 Inactive cholecalciferol (vitamin D3) 50 mcg (2,000 unit) tablet RxNorm: 805846 Take 1 Tablet(s) Oral QD 03/11/20 20 Inactive Zetia 10 mg tablet RxNorm: 489662 Take 1 Tablet(s) Oral QD 03/07/20 20 Inactive Zetia 10 mg tablet RxNorm: 845093 Take 1 Tablet(s) Oral QD 03/07/20 20 Inactive Lyrica 50 mg capsule RxNorm: 463922 Take 1 Capsule(s) Oral QAM every morning 02/15/20 Inactive Lyrica 100 mg capsule RxNorm: 620576 Take 1 Capsule(s) Oral QHS every night at bedtime 02/15/20 Inactive Lyrica 100 mg capsule RxNorm: 104703 Take 1 Capsule(s) Oral QHS every night at bedtime 02/15/20 Inactive Lyrica 50 mg capsule RxNorm: 419650 Take 1 Capsule(s) Oral QAM every morning 02/15/20 20 Inactive venlafaxine ER 75 mg capsule,extended release 24 hr RxNorm: 115458 Take 3 Capsule(s) Oral QD 06/12/2021 Activepolyethylene glycol 3350 17 gram/dose oral powderRxNorm: 513259Apub 17=1 capful Gram(s) Oral BID as needed mix with 4-8oz of lonskm4206/12/2021ctive Levemir FlexTouch U-100 Insulin 100 unit/mL (3 mL) subcutaneous penRxNorm: 213253Sawdwn 80 Unit(s) Subcutaneous BID/Inactiveloperamide 2 mg capsuleRxNorm: 905524Snpi 1 Capsule(s) Oral QID as qeenxz6606/12/2021ctive Novolog Flexpen U-100 Insulin aspart 100 unit/mL (3 mL) subcutaneousRxNorm: 5359150Oboxua 30 Unit(s) Subcutaneous TID with mealsInactive Medication [...] CVX: 115 2008 Procedures Procedure Codes Date SARSCOV2 VAC 50MCG/0.25ML IM Moderna Covid-19 Vaccine (Low Dose) CPT-4: 91427 06/18/2021 ADMIN SARSCOV2 50MCG/0.25ML Moderna Booster CPT- 4: 0064A 06/18/2021 COVID-19 VACCINE HOME ADMIN CPT-4: M0201 06/2021 Reason For Visit No Reason For Visit data Plan of Care Planned Activity Notes Codes Status Date Referral: [facility] WPtel: [address], [address] [id number] [place]ReferralRecords Hpgayftv22/08/2023Patient Education: Patient Medication UapxtbpDndfcitpa88/02/2022Patient Education: Influenza VaccineCompleted 2Referral: [facility] WPtel: [address] [id number] TITfwwviukYorvlsltt92/12/2022Referral: General CardiologyReferralCompleted 1Referral: General PsychologistReferralClosed Instructions Comment Date Leonid is a Male being seen living at [facility]. Initial BPS visit 01/2020. PMHx including DMII, CAD w/ 5 stents, Depression, Seizure Disorder and CKD stage 3. He moved into [facility] in 12/2019 but after a hospitalization 05/2021 he moved to the [facility] to have closer nursing attention. Sister Jyotsna involved in his care cell# [phone] Guardian: Don (tapan met in person 09/01/21), now has Lexii (same group as don)Lab Schedule: * 10/06/2022
--- OUTSIDE RECORDS SUMMARY | 2022-11-09 23:19 | XMS_ITS | CCD ---
Author Name Tapan Shirley PA-C Address [address] [facility] [address] [place] [address] Phone Organization [facility] Phone Care Team Providers Care Vegetable Packer Name Role Phone Tapan Shirley PA-C Primary Care Provider Unavailabl e Tapan Shirley PA-C Chronic Care Management Unavaila ble Summary Purpose DataExchange Insurance Providers Payer name Policy type / Coverage type Covered democrat ID Effective Begin Date Effective End Date Medicare [place] Medicare Part B [id number] Unknown Unknown Medicaid [place] Medicare Part B [id number] Unknown Unknown Family history Runs in the family Diagnosis Age At Onset No Known Diseases N/A Social History Social History Element Codes Description Effec tive Dates Living arrangements Unknown Senior Care 09/03/[address]: 2832429 Non-Smoker / No History of Smoking 09/02/[address]: 679845191 No Alcohol Consum ption 09/02/2020 Allergies, Adverse Reactions, Alerts Substance Reaction Codes Entered Date Inactivated Date Status LISINOPRIL RxNorm: 8373505No Inactive DateActiveMetformin [id number] Inactive DateActive Problems Condition Codes Effective Dates Condition St atus Candidiasis, intertrigo ICD-10: B37.2 ICD-9: 112.3012ActiveDVT (deep venous thrombosis)ICD-10: I82.409 ICD-9: 453.4001ctiveHistory of anemia due to CKDICD-10: N18.9 ICD-9: 585.9012ActiveHyperlipidemia associated with type 2 diabetes mellitusICD-10: E11.69 ICD-9: 250.80012ActiveHypertension associated with diabetesICD-10: E11.59 ICD-9: 250.8001/25/2022ActiveStage 2 chronic 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ICD-10: E11.22 ICD-9: 250.4001ctiveStage 2 chronic kidney diseaseICD-10: N18.2 ICD-9: 585.201ctiveType 2 diabetes mellitus with diabetic polyneuropathy, with long-term current use of insulinICD-10: E11.42 ICD-9: 250.6001/ctiveDepressionICD-10: F32.9 ICD-9: 25205/ctiveLearning disabilityICD-10: F81.9 ICD-9: 315.212ctiveSeizure disorderICD-10: G40.909 ICD-9: 345.9005/05/2021ctiveSkin tagICD-10: L91.8 ICD-9: 701.91/ctiveVitamin D deficiencyICD-10: E55.9 ICD-9: 268.91/ctiveCellulitisICD-10: L03.90 ICD-9: 682.910/ctiveCallus of heelICD-10: L84 ICD-9: 25979ctiveCoronary artery disease involving [place] coronary artery of [place] heart, angina presence unspecifiedICD-10: I25.10 ICD-9: 414.0109ctiveImpacted cerumen, left earICD-10: H61.22 ICD-9: 380.408/ctiveInappropriate sexual behaviorICD-10: Z72.89 ICD-9: 312.8908ctiveContact with and (suspected) exposure to covid-19 ICD-10: Z20.822 ICD-9: V01.7908esolvedOther infective acute otitis externa of left ear ICD-10: H60.392 ICD-9: 380.1008esolvedScrotal skin lesionICD-10: N50.9 ICD-9: 608.908esolvedTinea pedisICD-10: B35.3 ICD-9: 110.408/1ResolvedVisit for preventive health examinationICD-10: Z00.00 ICD-9: V70.008/esolvedSecondary [...] Z20.828 ICD-9: V01.7902esolvedHyperhidrosis of palmsICD-10: L74.512 ICD-9: 705.8636RarplaUtfzwkhoEcxxuia59/28/2020ActiveDiabetes mellitus Type 8Emqkbrd08/28/2020ActiveAnemia in chronic kidney diseaseICD-10: D63.1 02/12/2020ResolvedHyperlipidemia, unspecifiedICD-10: [...] insulin 5 times a day Dx:E1142. 06/05/19 Inactive ok to substitute with [...] test strip hydralazine 50 mg tablet RxNorm: 038110 Take 1 Tablet(s) Oral QID 05/05/20 21 Inactive venlafaxine ER 225 mg tablet,extended release 24 hr RxNorm: 253834 Take 1 Tablet(s) Oral QD 05/05/20 21 Inactive isosorbide mononitrate ER 30 mg tablet,extended release 24 hr RxNorm: 296784 Take 1 Tablet(s) Oral QD 05/05/20 No Stop Date Active venlafaxine ER 225 mg tablet,extended release 24 hr RxNorm: 448931 Take 1 Tablet(s) Oral QD 05/05/20 21 Inactive hydralazine 50 mg tablet RxNorm: 134217 Take 1 Tablet(s) Oral QID 05/05/20 21 Inactive aspirin 81 mg tablet,delayed release RxNorm: 266964 Take 1 Tablet(s) Oral QD 03/31/20 21 Inactive Vitamin D2 1,250 mcg (50,000 unit) capsule RxNorm: 6371492 Take 1 Capsule(s) Oral QW once a week x 12 weeks 03/31/20 Inactive Zetia 10 mg tablet RxNorm: 240943 Take 1 Tablet(s) Oral QD 03/31/20 Inactive Vitamin D2 1,250 mcg (50,000 unit) capsule RxNorm: 2854126 Take 1 Capsule(s) Oral QW once a week 03/31/20 Inactive Zetia 10 mg tablet RxNorm: 890478 Take 1 Tablet(s) Oral QD 03/31/20 Inactive hydralazine 25 mg tablet RxNorm: 941349 Take 1 Tablet(s) Oral QID 03/31/20 Inactive hydralazine 25 mg tablet RxNorm: 982345 Take 1 Tablet(s) Oral QID 03/31/20 Inactive hydralazine 10 mg tablet RxNorm: 074574 Take 1 Tablet(s) Oral QID 03/03/20 021 Inactive cephalexin 500 mg tablet RxNorm: 810454 Take 1 Tablet(s) Oral QID 02/27/20 021 Inactive cephalexin 500 mg tablet RxNorm: 665978 Take 1 Tablet(s) Oral QID 02/27/20 021 Inactive lisinopril 40 mg tablet RxNorm: 875941 Take 1 Tablet(s) Oral QD 02/11/20 023 Inactive Eliquis 5 mg tablet RxNorm: 6063032 Take 1 Tablet(s) Oral BID 01/05/20 022 Inactive Eliquis 5 mg tablet RxNorm: 8990131 Take 2 Tablet(s) Oral QD 01/01/20 021 Inactive Lyrica 50 mg capsule RxNorm: 423810 Take 1 Capsule(s) Oral QAM every morning 12/24/19 021 Inactive Lyrica 100 mg capsule RxNorm: 383708 Take 1 Capsule(s) Oral QHS every night at bedtime 12/24/19 021 Inactive clotrimazole 1 % topical cream RxNorm: 332694 Apply to right foot and toes Topical BID 12/04/19 21 023 Inactive metoprolol succinate ER 200 mg tablet,extended release 24 hr RxNorm: 726148 Take 1 Tablet(s) Oral QD 12/04/19 21 023 Inactive ciprofloxacin 500 mg tablet RxNorm: 224210 Take 1 Tablet(s) Oral QD 11/30/19 21 021 Inactive DX ofloxacin otic drops Accu-Chek Guide test strips RxNorm: USE 1 TO CHECK GLUCOSE 4 TIMES DAILY AND NEEDED 11/15/19 21 023 Inactive Blood Glucose Test strips RxNorm: Use 1 Test Strip QID at PRN 11/05/19 21 023 Inactive E11.42 lisinopril 30 mg tablet RxNorm: 450286 Take 1 Tablet(s) Oral QD 10/30/19 021 Inactive lisinopril 20 mg tablet RxNorm: 653573 Take 1 Tablet(s) Oral QD 10/23/19 21 021 Inactive lisinopril 20 mg tablet RxNorm: 535757 Take 1 Tablet(s) Oral QD 10/23/19 21 021 Inactive lisinopril 10 mg tablet RxNorm: 300476 Take 1 Tablet(s) Oral QD 10/02/19 21 021 Inactive icosapent ethyl 1 gram capsule RxNorm: 2097593 Take 2 Capsule(s) (2 gm) Oral BID with meals 09/12/19 21 022 Inactive Okay to dispense one 2gm tab if you have that available. icosapent ethyl 1 gram capsule RxNorm: 5428567 Take 2 Capsule(s) Oral BID 09/12/19 21 021 Inactive Okay to dispense one 2gm tab if you have that available. amlodipine 10 mg tablet RxNorm: 767162 Take 1 Tablet(s) Oral QD 09/04/19 21 022 Inactive Levemir FlexTouch U-100 Insulin 100 unit/mL (3 mL) subcutaneous pen RxNorm: 998676 Inject 150 Unit(s) Subcutaneous BID 04/20/20 21 01/26/2 022 Inactive aspirin 81 mg tablet,delayed release RxNorm: 899189 Take 1 Tablet(s) Oral QD 09/04/19 Inactive venlafaxine ER 150 mg tablet,extended release 24 hr RxNorm: 291480 Take 1 Tablet(s) Oral QD 09/04/19 Inactive clotrimazole-betame thasone 1 %-0.05 % topical cream RxNorm: 196279 Apply to rash on red area on left abdomen/chest Topical BID 08/10/19 21 Inactive amlodipine 5 mg tablet RxNorm: 780770 Take 1 Tablet(s) Oral QD 07/31/19 Inactive cephalexin 500 mg tablet RxNorm: 181786 Take 1 Tablet(s) Oral BID BID - Twice Daily 07/31/19 Inactive Start 08/01/20 pantoprazole 40 mg tablet,delayed release RxNorm: 045247 Take 1 Tablet(s) Oral QAM every morning 07/08/19 Inactive senna 8.6 mg tablet RxNorm: 887512 Take 1 Tablet(s) Oral QD 07/08/19 Inactive Novolog Flexpen U-100 Insulin aspart 100 unit/mL (3 mL) subcutaneous RxNorm: 2142805 Administer per sliding scale Milliliter(s) Subcutaneous TID 151-200: 10 u; 201-250: 20 u; 251-300: 30 u; 301-350: 40 u; 351-400: 50 u. 07/08/19 Inactive Novolog Flexpen U-100 Insulin aspart 100 unit/mL (3 mL) subcutaneous RxNorm: 0019240 Inject 85 Unit(s) Subcutaneous TID 07/08/19 Inactive pravastatin 80 mg tablet RxNorm: 102390 Take 1 Tablet(s) Oral QHS every night at bedtime 07/08/19 Inactive clotrimazole 1 % topical cream RxNorm: 013526 Apply to bilateral groin areas Topical BID 07/08/19 21 Inactive carbamazepine 200 mg tablet RxNorm: 890492 Take 1 Tablet(s) Oral BID 07/08/19 022 Inactive torsemide 20 mg tablet RxNorm: 825782 Take 1 Tablet(s) Oral QD 07/08/19 023 Inactive clopidogrel 75 mg tablet RxNorm: 743054 Take 1 Tablet(s) Oral QD 07/08/19 021 Inactive Blood Glucose Test strips RxNorm: Use 1 Test Strip QID at PRN 07/08/19 21 Inactive E11.42 lisinopril 5 mg tablet RxNorm: 129347 Take 1 Tablet(s) Oral QD 07/08/19 021 Inactive metoprolol succinate ER 200 mg tablet,extended release 24 hr RxNorm: 247565 Take 1 Tablet(s) Oral QD 07/08/19 021 Inactive Vitamin D3 25 mcg (1,000 unit) tablet RxNorm: 140733 Take 1 Tablet(s) Oral QD 07/08/19 021 Inactive isosorbide dinitrate 30 mg tablet RxNorm: 968894 Take 1 Tablet(s) Oral QD 07/08/19 021 Inactive Levemir FlexTouch U-100 Insulin 100 unit/mL (3 mL) subcutaneous pen RxNorm: 579931 Inject 140 Unit(s) Subcutaneous BID 07/08/19 021 Inactive venlafaxine 75 mg tablet RxNorm: 091681 Take 1 Tablet(s) Oral QD 07/08/19 021 Inactive acetaminophen 500 mg tablet RxNorm: 811979 Take 1 Tablet(s) Oral TID as needed for headache 06/18/19 021 Inactive acetaminophen 500 mg tablet RxNorm: 447878 Take 1 Tablet(s) Oral TID as needed for headache 06/18/19 021 Inactive Lyrica 100 mg capsule RxNorm: 332967 Take 1 Capsule(s) Oral QHS every night at bedtime 06/11/19 021 Inactive Lyrica 50 mg capsule RxNorm: 875843 Take 1 Capsule(s) Oral QAM every morning 06/10/19 021 Inactive hydrocortisone 2.5 % topical cream RxNorm: 013819 Apply to bilateral groin creases Topical BID 05/15/20 20 Inactive clotrimazole 1 % topical cream RxNorm: 564855 Apply to bilateral groin areas Topical BID 05/15/20 20 Inactive Lyrica 50 mg capsule RxNorm: 652007 Take 1 Capsule(s) Oral QAM every morning 05/14/20 20 Inactive Lyrica 100 mg capsule RxNorm: 779624 Take 1 Capsule(s) Oral QHS every night [...] Inactive Nystop 100,000 unit/gram topical powder RxNorm: 203964 Apply to abd folds, under breasts and L side of groin Topical BID x 14 days, then BID PRN 04/08/20 20 021 Inactive dx: yeast dermatitis Lyrica 100 mg capsule RxNorm: 128499 Take 1 Capsule(s) Oral QHS every night at bedtime 03/13/20 20 Inactive Lyrica 50 mg capsule RxNorm: 790087 Take 1 Capsule(s) Oral QAM every morning 03/13/20 20 Inactive ketoconazole 2 % shampoo RxNorm: 495499 Apply Topical two times a week with showers 03/11/20 Inactive cholecalciferol (vitamin D3) 50 mcg (2,000 unit) tablet RxNorm: 272809 Take 1 Tablet(s) Oral QD 03/11/20 Inactive Zetia 10 mg tablet RxNorm: 909918 Take 1 Tablet(s) Oral QD 03/07/20 Inactive Zetia 10 mg tablet RxNorm: 075687 Take 1 Tablet(s) Oral QD 03/07/20 Inactive Lyrica 50 mg capsule RxNorm: 978014 Take 1 Capsule(s) Oral QAM every morning 02/15/20 Inactive Lyrica 100 mg capsule RxNorm: 146648 Take 1 Capsule(s) Oral QHS every night at bedtime 02/15/20 Inactive Lyrica 100 mg capsule RxNorm: 445642 Take 1 Capsule(s) Oral QHS every night at bedtime 02/15/20 Inactive Lyrica 50 mg capsule RxNorm: 793925 Take 1 Capsule(s) Oral QAM every morning 02/15/20 Inactive venlafaxine ER 75 mg capsule,extended release 24 hr RxNorm: 191411 Take 3 Capsule(s) Oral QD 06/12/2021 Activepolyethylene glycol 3350 17 gram/dose oral powderRxNorm: 848627Igan 17=1 capful Gram(s) Oral BID as needed mix with 4-8oz of adibvq0006/12/2021ctive Levemir FlexTouch U-100 Insulin 100 unit/mL (3 mL) subcutaneous penRxNorm: 081811Vgibhe 80 Unit(s) Subcutaneous BID07/14//Inactiveloperamide 2 mg capsuleRxNorm: 724384Fuhx 1 Capsule(s) Oral QID as xnunri9206/12/2021ctive Novolog Flexpen U-100 Insulin aspart 100 unit/mL (3 mL) subcutaneousRxNorm: 5973869Ewhmgq 30 Unit(s) Subcutaneous TID with meals/Inactive Medication [...] Performer Location Location Address Codes Cristiano e ([id number]) [facility] MGMT 14 D AY DISCH Diagnosis: Candidiasis, intertrigo[ICD10: B37.2] Diagnosis: DVT [...] polyneuropathy, with long-term current use of insulin[ICD10: E11.42]Tapan Wiseman on [address] [address]YIL-4: [id number] Plan of Care Planned Activity Notes Codes Status Date Referral: [facility] WPtel: [address], [address] [id number] USReferralRecords Iosygxts91/08/2023Patient Education: Patient Medication ZlzglssAewzobgjt13/25/2022atient Education: Influenza VaccineCompleted 2Referral: [facility] WPtel: [address] [id number] TEDbvnzuchEnynitxja82/12/2022Referral: General CardiologyReferralCompleted 1Referral: General PsychologistReferralClosed Instructions Comment [...] Sister Jyotsna involved in his care cell# [phone] Guardian: Don (tapan met in person 09/01/21), now has Lexii (same group as don)Lab Schedule: Mar-* 10/06/2022 Chronic Kidney Disease 02/2021 labs GFR stable, no changes indicated.?? DVT (deep venous thrombosis) Patient to remain on eliquis at least 6months since DVT (Jun 2021), then will reassess need. Suspect he'll need indefinite anticoagulation due limited mobility, DM2, obesity, hyperlipidemia, HTN.?? Diabetes Reviewed BP today, no changes needed. Nursing to notify provider if patient is having many readingsoutside of this range so their treatment can be adjusted. BGs running high, AL to schedule endo appt and or at least have BGs sent to him.?? Due for an a1c today as last done in Feb but suspect it was checked in hospital so will await discharge paperwork.?? Candidiasis, intertrigo No skin concerns today. Cellulitis 05/17/21 when in her, treated with keflex [id number].?? .06/10/2021
--- OUTSIDE RECORDS SUMMARY | 2022-11-09 23:20 | XMS_ITS | CCD ---
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 [employer] Worker Name Role Phone Tapan Shirley PA-C Primary Care Provider Unavailabl e Tapan Shirley PA-C Chronic Care Management Unavaila ble Summary Purpose DataExchange Insurance Providers Payer name Policy type / Coverage type Covered republican ID Effective Begin Date Effective End Date [place] [id number] Unknown Unknown [place] [id number] Unknown Unknown Family history Runs in the family Diagnosis Age At Onset No Known Diseases N/A Social History Social History Element Codes Description Effec tive Dates Living arrangements Unknown Half-Way 09/03/[address]: 0030930 Non-Smoker / No History of Smoking 09/02/[address]: 312944683 No Alcohol Consum ption 09/02/2020 Allergies, Adverse Reactions, Alerts Substance Reaction Codes Entered Date Inactivated Date Status LISINOPRIL RxNorm: 9770322No Inactive DateActiveMetformin TUcHbtydbv15/28/2020No Inactive DateActive Problems Condition Codes Effective Dates Condition St atus Coronary artery disease invo lving [place] coronary artery of [place] heart, angina presence unspecified ICD-10: I25.10 ICD-9: 414.01007/08/2021ctiveDVT (deep venous thrombosis)ICD-10: I82.409 ICD-9: 453.4002ActiveHyperlipidemia associated with type 2 diabetes mellitusICD-10: E11.69 ICD-9: 250.8002ActiveHypertension associated with diabetesICD-10: E11.59 ICD-9: 250.8002ActiveSeizure disorderICD-10: G40.909 ICD-9: 345.9002ActiveStage 2 chronic 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ICD-10: E11.22 ICD-9: 250.4002ActiveType 2 diabetes mellitus with diabetic polyneuropathy, with long-term current use of insulinICD-10: E11.42 ICD-9: 250.6002/ctiveEncounter for immunizationICD-10: Z23 ICD-9: V03.8902/ctiveCandidiasis, intertrigoICD-10: B37.2 ICD-9: 112.301/ctiveHistory of anemia due to CKDICD-10: N18.9 ICD-9: 585.901/ctiveStage 2 chronic kidney diseaseICD-10: N18.2 ICD-9: 585.201ctiveDepressionICD-10: F32.9 ICD-9: 56482/ctiveLearning disabilityICD-10: F81.9 ICD-9: 315.212ctiveSkin tagICD-10: L91.8 ICD-9: 701.91/ctiveVitamin D deficiencyICD-10: E55.9 ICD-9: 268.911/ctiveCellulitisICD-10: L03.90 ICD-9: 682.910/ctiveCallus of heelICD-10: L84 ICD-9: 03679ctiveImpacted cerumen, left earICD-10: H61.22 ICD-9: 380.408/ctiveInappropriate sexual behaviorICD-10: Z72.89 ICD-9: 312.8908ctiveContact with and (suspected) exposure to covid-19 ICD-10: Z20.822 ICD-9: V01.7908/esolvedOther infective acute otitis externa of left ear ICD-10: H60.392 ICD-9: 380.1008esolvedScrotal skin lesionICD-10: N50.9 ICD-9: 608.908/esolvedTinea pedisICD-10: B35.3 ICD-9: 110.408esolvedVisit for preventive health examinationICD-10: Z00.00 ICD-9: V70.008esolvedSecondary hypertensionICD-10: I15.9 ICD-9: 405.9906ctiveAnemia due to stage 3b chronic kidney diseaseICD- 10: N18.32 ICD-9: 285.2105esolvedGout due to renal impairmentICD-10: M10.30 ICD-9: 274.1004ctiveLong term (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 insulinICD-10: Z79.4 09/03/2020ctiveLower extremity edemaICD-10: R60.0 ICD-9: 782.304ctiveChronic kidney disease, stage 3 unspecifiedICD-10: N18.30009/03/2020esolvedDandruff in adultICD-10: L21.0 ICD-9: 690.1802ctiveContact with and (suspected) exposure to other viral communicable diseasesICD-10: Z20.828 ICD-9: V01.7902esolvedHyperhidrosis of palmsICD-10: L74.512 ICD-9: 705.1349MrnbxvOtomwlywPgqejzz22/28/2020ActiveDiabetes mellitus Type 4Gfiaacl86/28/2020ActiveAnemia in chronic kidney diseaseICD-10: D63.1 02/12/2020ResolvedHyperlipidemia, unspecifiedICD-10: E78.Resolved Medications Medication Codes Instructions Start Date Stop Date Status Fill Instructions Lyrica 100 mg capsule RxNorm: 761484 Take 1 Capsule(s) Oral QHS every night at bedtime Take 1 capsule by mouth once daily at bedtime 07/14/19 22 022 Inactive Lyrica 50 mg capsule RxNorm: 906048 Take 1 Capsule(s) Oral QAM every morning Take 1 capsule by mouth once daily 07/14/19 22 022 Inactive Levemir FlexTouch U-100 Insulin 100 unit/mL (3 mL) subcutaneous pen RxNorm: 022451 Inject 83 Unit(s) Subcutaneous BID 07/08/19 22 [...] 4 times daily and as needed. Dx:E1106/05/19 022 Inactive ok to substitute with any [...] times daily and as needed. Dx:. 06/05/19 22 022 Inactive ok to substitute with any covered alternative test strip Accu-Chek Guide test strips RxNorm: Use 1 Test Strip QID Use 1 test strip to monitor blood glucose 4 times daily and as needed. Dx:E11. 06/05/19 022 Inactive ok to substitute with any covered alternative test strip hydralazine 50 mg tablet RxNorm: 067484 Take 1 Tablet(s) Oral QID 05/05/20 21 022 Inactive isosorbide mononitrate ER 30 mg tablet,extended release 24 hr RxNorm: 668438 Take 1 Tablet(s) Oral QD 05/05/20 No Stop Date Active venlafaxine ER 225 mg tablet,extended release 24 hr RxNorm: 245270 Take 1 Tablet(s) Oral QD 05/05/20 21 12/20/2 021 Inactive venlafaxine ER 225 mg tablet,extended release 24 hr RxNorm: 087719 Take 1 Tablet(s) Oral QD 05/05/20 022 Inactive hydralazine 50 mg tablet RxNorm: 886972 Take 1 Tablet(s) Oral QID 05/05/20 Inactive aspirin 81 mg tablet,delayed release RxNorm: 537451 Take 1 Tablet(s) Oral QD 03/31/20 Inactive Vitamin D2 1,250 mcg (50,000 unit) capsule RxNorm: 8865750 Take 1 Capsule(s) Oral QW once a week x 12 weeks 03/31/20 Inactive Zetia 10 mg tablet RxNorm: 459173 Take 1 Tablet(s) Oral QD 03/31/20 Inactive Vitamin D2 1,250 mcg (50,000 unit) capsule RxNorm: 0581805 Take 1 Capsule(s) Oral QW once a week 03/31/20 Inactive Zetia 10 mg tablet RxNorm: 585816 Take 1 Tablet(s) Oral QD 03/31/20 Inactive hydralazine 25 mg tablet RxNorm: 100593 Take 1 Tablet(s) Oral QID 03/31/20 021 Inactive hydralazine 25 mg tablet RxNorm: 232764 Take 1 Tablet(s) Oral QID 03/31/20 021 Inactive hydralazine 10 mg tablet RxNorm: 284922 Take 1 Tablet(s) Oral QID 03/03/20 021 Inactive cephalexin 500 mg tablet RxNorm: 119716 Take 1 Tablet(s) Oral QID 02/27/20 021 Inactive cephalexin 500 mg tablet RxNorm: 114536 Take 1 Tablet(s) Oral QID 02/27/20 021 Inactive lisinopril 40 mg tablet RxNorm: 724305 Take 1 Tablet(s) Oral QD 02/11/20 023 Inactive Eliquis 5 mg tablet RxNorm: 8473246 Take 1 Tablet(s) Oral BID 01/05/20 022 Inactive Eliquis 5 mg tablet RxNorm: 7816674 Take 2 Tablet(s) Oral QD 01/01/20 21 021 Inactive Lyrica 50 mg capsule RxNorm: 162706 Take 1 Capsule(s) Oral QAM every morning 12/24/19 021 Inactive Lyrica 100 mg capsule RxNorm: 760830 Take 1 Capsule(s) Oral QHS every night at bedtime 12/24/19 021 Inactive clotrimazole 1 % topical cream RxNorm: 710700 Apply to right foot and toes Topical BID 12/04/19 21 023 Inactive metoprolol succinate ER 200 mg tablet,extended release 24 hr RxNorm: 765869 Take 1 Tablet(s) Oral QD 12/04/19 023 Inactive ciprofloxacin 500 mg tablet RxNorm: 150829 Take 1 Tablet(s) Oral QD 11/30/19 021 Inactive DX ofloxacin otic drops Accu-Chek Guide test strips RxNorm: USE 1 TO CHECK GLUCOSE 4 TIMES DAILY AND NEEDED 11/15/19 21 023 Inactive Blood Glucose Test strips RxNorm: Use 1 Test Strip QID at PRN 11/05/19 023 Inactive E11.42 lisinopril 30 mg tablet RxNorm: 603271 Take 1 Tablet(s) Oral QD 10/30/19 021 Inactive lisinopril 20 mg tablet RxNorm: 576602 Take 1 Tablet(s) Oral QD 10/23/19 021 Inactive lisinopril 20 mg tablet RxNorm: 635841 Take 1 Tablet(s) Oral QD 10/23/19 021 Inactive lisinopril 10 mg tablet RxNorm: 270030 Take 1 Tablet(s) Oral QD 10/02/19 21 021 Inactive icosapent ethyl 1 gram capsule RxNorm: 3030556 Take 2 Capsule(s) (2 gm) Oral BID with meals 09/12/19 21 022 Inactive Okay to dispense one 2gm tab if you have that available. icosapent ethyl 1 gram capsule RxNorm: 5935262 Take 2 Capsule(s) Oral BID 09/12/19 21 Inactive Okay to dispense one 2gm tab if you have that available. amlodipine 10 mg tablet RxNorm: 363099 Take 1 Tablet(s) Oral QD 09/04/19 Inactive aspirin 81 mg tablet,delayed release RxNorm: 849143 Take 1 Tablet(s) Oral QD 09/04/19 Inactive Levemir FlexTouch U-100 Insulin 100 unit/mL (3 mL) subcutaneous pen RxNorm: 276213 Inject 150 Unit(s) Subcutaneous BID 09/04/19 Inactive venlafaxine ER 150 mg tablet,extended release 24 hr RxNorm: 075412 Take 1 Tablet(s) Oral QD 09/04/19 Inactive clotrimazole-betame thasone 1 %-0.05 % topical cream RxNorm: 535196 Apply to rash on red area on left abdomen/chest Topical BID 08/10/19 21 Inactive amlodipine 5 mg tablet RxNorm: 247204 Take 1 Tablet(s) Oral QD 07/31/19 Inactive cephalexin 500 mg tablet RxNorm: 890224 Take 1 Tablet(s) Oral BID BID - Twice Daily 07/31/19 021 Inactive Start 08/01/20 pantoprazole 40 mg tablet,delayed release RxNorm: 083241 Take 1 Tablet(s) Oral QAM every morning 07/08/19 022 Inactive senna 8.6 mg tablet RxNorm: 316481 Take 1 Tablet(s) Oral QD 07/08/19 022 Inactive pravastatin 80 mg tablet RxNorm: 499718 Take 1 Tablet(s) Oral QHS every night at bedtime 07/08/19 022 Inactive clotrimazole 1 % topical cream RxNorm: 400334 Apply to bilateral groin areas Topical BID 07/08/19 21 Inactive carbamazepine 200 mg tablet RxNorm: 579158 Take 1 Tablet(s) Oral BID 07/08/19 022 Inactive torsemide 20 mg tablet RxNorm: 178505 Take 1 Tablet(s) Oral QD 07/08/19 023 Inactive clopidogrel 75 mg tablet RxNorm: 583448 Take 1 Tablet(s) Oral QD 07/08/19 021 Inactive Blood Glucose Test strips RxNorm: Use 1 Test Strip QID at PRN 07/08/19 21 Inactive E11.42 Novolog Flexpen U-100 Insulin aspart 100 unit/mL (3 mL) subcutaneous RxNorm: 3231522 Administer per sliding scale Milliliter(s) Subcutaneous TID 151-200: 10 u; 201-250: 20 u; 251-300: 30 u; 301-350: 40 u; 351-400: 50 u. 07/08/19 022 Inactive lisinopril 5 mg tablet RxNorm: 097558 Take 1 Tablet(s) Oral QD 07/08/19 021 Inactive Novolog Flexpen U-100 Insulin aspart 100 unit/mL (3 mL) subcutaneous RxNorm: 5669771 Inject 85 Unit(s) Subcutaneous TID 07/08/19 022 Inactive metoprolol succinate ER 200 mg tablet,extended release 24 hr RxNorm: 901430 Take 1 Tablet(s) Oral QD 07/08/19 021 Inactive Vitamin D3 25 mcg (1,000 unit) tablet RxNorm: 509617 Take 1 Tablet(s) Oral QD 07/08/19 021 Inactive isosorbide dinitrate 30 mg tablet RxNorm: 955522 Take 1 Tablet(s) Oral QD 07/08/19 021 Inactive Levemir FlexTouch U-100 Insulin 100 unit/mL (3 mL) subcutaneous pen RxNorm: 807731 Inject 140 Unit(s) Subcutaneous BID 07/08/19 021 Inactive venlafaxine 75 mg tablet RxNorm: 055565 Take 1 Tablet(s) Oral QD 07/08/19 021 Inactive acetaminophen 500 mg tablet RxNorm: 962219 Take 1 Tablet(s) Oral TID as needed for headache 06/18/19 21 021 Inactive acetaminophen 500 mg tablet RxNorm: 965587 Take 1 Tablet(s) Oral TID as needed for headache 06/18/19 21 021 Inactive Lyrica 100 mg capsule RxNorm: 222047 Take 1 Capsule(s) Oral QHS every night at bedtime 06/11/19 21 021 Inactive Lyrica 50 mg capsule RxNorm: 407546 Take 1 Capsule(s) Oral QAM every morning 06/10/19 21 021 Inactive hydrocortisone 2.5 % topical cream RxNorm: 159405 Apply to bilateral groin creases Topical BID 05/15/20 20 021 Inactive clotrimazole 1 % topical cream RxNorm: 831424 Apply to bilateral groin areas Topical BID 05/15/20 20 021 Inactive Lyrica 50 mg capsule RxNorm: 976601 Take 1 Capsule(s) Oral QAM every morning 05/14/20 20 020 Inactive Lyrica 100 mg capsule RxNorm: 715490 Take 1 Capsule(s) Oral QHS every night [...] Inactive Nystop 100,000 unit/gram topical powder RxNorm: 171422 Apply to abd folds, under breasts and L side of groin Topical BID x 14 days, then BID PRN 04/08/20 20 Inactive dx: yeast dermatitis Lyrica 100 mg capsule RxNorm: 448354 Take 1 Capsule(s) Oral QHS every night at bedtime 03/13/20 20 Inactive Lyrica 50 mg capsule RxNorm: 646944 Take 1 Capsule(s) Oral QAM every morning 03/13/20 20 Inactive ketoconazole 2 % shampoo RxNorm: 673326 Apply Topical two times a week with showers 03/11/20 20 Inactive cholecalciferol (vitamin D3) 50 mcg (2,000 unit) tablet RxNorm: 911253 Take 1 Tablet(s) Oral QD 03/11/20 20 Inactive Zetia 10 mg tablet RxNorm: 205480 Take 1 Tablet(s) Oral QD 03/07/20 20 Inactive Zetia 10 mg tablet RxNorm: 170748 Take 1 Tablet(s) Oral QD 03/07/20 20 Inactive Lyrica 50 mg capsule RxNorm: 276621 Take 1 Capsule(s) Oral QAM every morning 02/15/20 20 Inactive Lyrica 100 mg capsule RxNorm: 826451 Take 1 Capsule(s) Oral QHS every night at bedtime 02/15/20 20 Inactive Lyrica 100 mg capsule RxNorm: 723882 Take 1 Capsule(s) Oral QHS every night at bedtime 02/15/20 20 Inactive Lyrica 50 mg capsule RxNorm: 471699 Take 1 Capsule(s) Oral QAM every morning 02/15/20 20 Inactive venlafaxine ER 75 mg capsule,extended release 24 hr RxNorm: 193749 Take 3 Capsule(s) Oral QD 06/12/2021 Activepolyethylene glycol 3350 17 gram/dose oral powderRxNorm: 961119Fvtq 17=1 capful Gram(s) Oral BID as needed mix with 4-8oz of qbulbe3606/12/2021ctive Levemir FlexTouch U-100 Insulin 100 unit/mL (3 mL) subcutaneous penRxNorm: 000316Bwbrec 80 Unit(s) Subcutaneous BID07/14//Inactiveloperamide 2 mg capsuleRxNorm: 144329Aeus 1 Capsule(s) Oral QID as sbcopf4806/12/2021ctive Novolog Flexpen U-100 Insulin aspart 100 unit/mL (3 mL) subcutaneousRxNorm: 9169476Rppveh 30 Unit(s) Subcutaneous TID with meals/Inactive Medication [...] Codes Status Date Referral: [facility] WPtel: [address], [address] [id number] USReferralRecords Mwfxlkba39/08/2023Referral: [facility] WPtel: [address] [id number] UEEkrsqdmsYuuhexdvu80/12/2022Referral: General CardiologyReferralCompleted 1Referral: General PsychologistReferralClosed Instructions Comment Date Leonid is a Male being seen living at [facility]. Initial [facility] visit 01/2020. PMHx including DMII, CAD w/ 5 stents, Depression, Seizure Disorder and CKD stage 3. He moved into [facility] in 12/2019 but after a hospitalization 05/2021 he moved [facility] to have closer nursing attention. Sister Jyotsna involved in his care cell# [phone] Guardian: Don (tapan met in person 09/01/21), now has Lexii (same group as don)Lab Schedule: * 10/06/2022
--- OUTSIDE RECORDS SUMMARY | 2022-11-09 23:20 | XMS_ITS | CCD ---
Author Name Tapan Shirley PA-C Address [address] [facility] [address] [place] [address] Phone Organization [facility] Phone Care Team Providers Care Stallion Keeper Name Role Phone Tapan Shirley PA-C Primary Care Provider Unavailabl e Tapan Shirley PA-C Chronic Care Management Unavaila ble Summary Purpose DataExchange Insurance Providers Payer name Policy type / Coverage type Covered democrat ID Effective Begin Date Effective End Date [place] Part B [id number] Unknown Unknown [place] [id number] Unknown Unknown Family history Runs in the family Diagnosis Age At Onset No Known Diseases N/A Social History Social History Element Codes Description Effec tive Dates Living arrangements Unknown Shelter 09/03/[address]: 1130800 Non-Smoker / No History of Smoking 09/02/[address]: 767948273 No Alcohol Consum ption 09/02/2020 Allergies, Adverse Reactions, Alerts Substance Reaction Codes Entered Date Inactivated Date Status LISINOPRIL RxNorm: 0646667No Inactive DateActiveMetformin BXiJecsxrh40/28/2020No Inactive DateActive Problems Condition Codes Effective Dates Condition St atus Coronary artery disease invo lving red cliff coronary artery of red cliff heart, angina presence unspecified ICD-10: I25.10 ICD-9: 414.0102ActiveDVT (deep venous thrombosis)ICD-10: I82.409 ICD-9: 453.4002ActiveHyperlipidemia associated with type 2 diabetes mellitusICD-10: E11.69 ICD-9: 250.8002ActiveHypertension associated with diabetesICD-10: E11.59 ICD-9: 250.8002ActiveSeizure disorderICD-10: G40.909 ICD-9: 345.9002/ctiveStage 2 chronic 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ICD-10: E11.22 ICD-9: 250.4002ctiveType 2 diabetes mellitus with diabetic polyneuropathy, with long-term current use of insulinICD-10: E11.42 ICD-9: 250.6002/ctiveEncounter for immunizationICD-10: Z23 ICD-9: V03.8902ctiveCandidiasis, intertrigoICD-10: B37.2 ICD-9: 112.301/ctiveHistory of anemia due to CKDICD-10: N18.9 ICD-9: 585.901ctiveStage 2 chronic kidney diseaseICD-10: N18.2 ICD-9: 585.201ctiveDepressionICD-10: F32.9 ICD-9: 46220/ctiveLearning disabilityICD-10: F81.9 ICD-9: 315.2121ActiveSkin tagICD-10: L91.8 ICD-9: 701.911/1ActiveVitamin D deficiencyICD-10: E55.9 ICD-9: 268.9111ActiveCellulitisICD-10: L03.90 ICD-9: 682.910/ctiveCallus of heelICD-10: L84 ICD-9: 93495/ctiveImpacted cerumen, left earICD-10: H61.22 ICD-9: 380.408/1ActiveInappropriate sexual behaviorICD-10: Z72.89 ICD-9: 312.8908ctiveContact with and [...] Z20.828 ICD-9: V01.7902esolvedHyperhidrosis of palmsICD-10: L74.512 ICD-9: 705.4076XbkxqmCbqqmxhcMbvyhwu87/28/2020ActiveDiabetes mellitus Type 0Jwlayli95/28/2020ActiveAnemia in chronic kidney diseaseICD-10: D63.1 02/12/2020ResolvedHyperlipidemia, unspecifiedICD-10: E78.509Resolved Medications Medication Codes Instructions Start Date Stop Date Status Fill Instructions Levemir FlexTouch U-100 Insulin 100 unit/mL (3 mL) subcutaneous pen RxNorm: 964632 Inject 83 Unit(s) Subcutaneous BID 07/08/19 22 [...] test strip hydralazine 50 mg tablet RxNorm: 275367 Take 1 Tablet(s) Oral QID 05/05/20 21 022 Inactive isosorbide mononitrate ER 30 mg tablet,extended release 24 hr RxNorm: 163562 Take 1 Tablet(s) Oral QD 05/05/20 No Stop Date Active venlafaxine ER 225 mg tablet,extended release 24 hr RxNorm: 748175 Take 1 Tablet(s) Oral QD 05/05/20 21 021 Inactive venlafaxine ER 225 mg tablet,extended release 24 hr RxNorm: 617042 Take 1 Tablet(s) Oral QD 05/05/20 21 022 Inactive hydralazine 50 mg tablet RxNorm: 526495 Take 1 Tablet(s) Oral QID 05/05/20 21 021 Inactive aspirin 81 mg tablet,delayed release RxNorm: 408941 Take 1 Tablet(s) Oral QD 03/31/20 Inactive Vitamin D2 1,250 mcg (50,000 unit) capsule RxNorm: 9488448 Take 1 Capsule(s) Oral QW once a week x 12 weeks 03/31/20 022 Inactive Zetia 10 mg tablet RxNorm: 968461 Take 1 Tablet(s) Oral QD 03/31/20 Inactive Vitamin D2 1,250 mcg (50,000 unit) capsule RxNorm: 9444450 Take 1 Capsule(s) Oral QW once a week 03/31/20 Inactive Zetia 10 mg tablet RxNorm: 879820 Take 1 Tablet(s) Oral QD 03/31/20 Inactive hydralazine 25 mg tablet RxNorm: 694380 Take 1 Tablet(s) Oral QID 03/31/20 021 Inactive hydralazine 25 mg tablet RxNorm: 980360 Take 1 Tablet(s) Oral QID 03/31/20 021 Inactive hydralazine 10 mg tablet RxNorm: 448791 Take 1 Tablet(s) Oral QID 03/03/20 021 Inactive cephalexin 500 mg tablet RxNorm: 670625 Take 1 Tablet(s) Oral QID 02/27/20 021 Inactive cephalexin 500 mg tablet RxNorm: 450222 Take 1 Tablet(s) Oral QID 02/27/20 021 Inactive lisinopril 40 mg tablet RxNorm: 524631 Take 1 Tablet(s) Oral QD 02/11/20 21 023 Inactive Eliquis 5 mg tablet RxNorm: 4683565 Take 1 Tablet(s) Oral BID 01/05/20 21 022 Inactive Eliquis 5 mg tablet RxNorm: 1590276 Take 2 Tablet(s) Oral QD 01/01/20 21 021 Inactive Lyrica 50 mg capsule RxNorm: 109866 Take 1 Capsule(s) Oral QAM every morning 12/24/19 21 021 Inactive Lyrica 100 mg capsule RxNorm: 653624 Take 1 Capsule(s) Oral QHS every night at bedtime 12/24/19 21 021 Inactive clotrimazole 1 % topical cream RxNorm: 482103 Apply to right foot and toes Topical BID 12/04/19 21 023 Inactive metoprolol succinate ER 200 mg tablet,extended release 24 hr RxNorm: 867040 Take 1 Tablet(s) Oral QD 12/04/19 21 023 Inactive ciprofloxacin 500 mg tablet RxNorm: 863274 Take 1 Tablet(s) Oral QD 11/30/19 21 021 Inactive DX ofloxacin otic drops Accu-Chek Guide test strips RxNorm: USE 1 TO CHECK GLUCOSE 4 TIMES DAILY AND NEEDED 11/15/19 21 023 Inactive Blood Glucose Test strips RxNorm: Use 1 Test Strip QID at PRN 11/05/19 21 023 Inactive E11.42 lisinopril 30 mg tablet RxNorm: 743427 Take 1 Tablet(s) Oral QD 10/30/19 021 Inactive lisinopril 20 mg tablet RxNorm: 589963 Take 1 Tablet(s) Oral QD 10/23/19 21 021 Inactive lisinopril 20 mg tablet RxNorm: 213547 Take 1 Tablet(s) Oral QD 10/23/19 21 021 Inactive lisinopril 10 mg tablet RxNorm: 135308 Take 1 Tablet(s) Oral QD 10/02/19 21 021 Inactive icosapent ethyl 1 gram capsule RxNorm: 9434924 Take 2 Capsule(s) (2 gm) Oral BID with meals 09/12/19 21 022 Inactive Okay to dispense one 2gm tab if you have that available. icosapent ethyl 1 gram capsule RxNorm: 1621899 Take 2 Capsule(s) Oral BID 09/12/19 21 021 Inactive Okay to dispense one 2gm tab if you have that available. amlodipine 10 mg tablet RxNorm: 323798 Take 1 Tablet(s) Oral QD 09/04/19 022 Inactive aspirin 81 mg tablet,delayed release RxNorm: 887556 Take 1 Tablet(s) Oral QD 09/04/19 021 Inactive Levemir FlexTouch U-100 Insulin 100 unit/mL (3 mL) subcutaneous pen RxNorm: 587587 Inject 150 Unit(s) Subcutaneous BID 09/04/19 022 Inactive venlafaxine ER 150 mg tablet,extended release 24 hr RxNorm: 175358 Take 1 Tablet(s) Oral QD 09/04/19 Inactive clotrimazole-betame thasone 1 %-0.05 % topical cream RxNorm: 100330 Apply to rash on red area on left abdomen/chest Topical BID 08/10/19 21 Inactive amlodipine 5 mg tablet RxNorm: 036637 Take 1 Tablet(s) Oral QD 07/31/19 Inactive cephalexin 500 mg tablet RxNorm: 252763 Take 1 Tablet(s) Oral BID BID - Twice Daily 07/31/19 021 Inactive Start 08/01/20 pantoprazole 40 mg tablet,delayed release RxNorm: 116252 Take 1 Tablet(s) Oral QAM every morning 07/08/19 022 Inactive senna 8.6 mg tablet RxNorm: 331686 Take 1 Tablet(s) Oral QD 07/08/19 022 Inactive pravastatin 80 mg tablet RxNorm: 989694 Take 1 Tablet(s) Oral QHS every night at bedtime 07/08/19 022 Inactive clotrimazole 1 % topical cream RxNorm: 834065 Apply to bilateral groin areas Topical BID 07/08/19 21 022 Inactive carbamazepine 200 mg tablet RxNorm: 488401 Take 1 Tablet(s) Oral BID 07/08/19 21 022 Inactive torsemide 20 mg tablet RxNorm: 701059 Take 1 Tablet(s) Oral QD 07/08/19 21 023 Inactive clopidogrel 75 mg tablet RxNorm: 163321 Take 1 Tablet(s) Oral QD 07/08/19 021 Inactive Blood Glucose Test strips RxNorm: Use 1 Test Strip QID at PRN 07/08/19 21 Inactive E11.42 Novolog Flexpen U-100 Insulin aspart 100 unit/mL (3 mL) subcutaneous RxNorm: 9503585 Administer per sliding scale Milliliter(s) Subcutaneous TID 151-200: 10 u; 201-250: 20 u; 251-300: 30 u; 301-350: 40 u; 351-400: 50 u. 07/08/19 21 022 Inactive lisinopril 5 mg tablet RxNorm: 499017 Take 1 Tablet(s) Oral QD 07/08/19 021 Inactive Novolog Flexpen U-100 Insulin aspart 100 unit/mL (3 mL) subcutaneous RxNorm: 2323392 Inject 85 Unit(s) Subcutaneous TID 07/08/19 Inactive metoprolol succinate ER 200 mg tablet,extended release 24 hr RxNorm: 200010 Take 1 Tablet(s) Oral QD 07/08/19 21 021 Inactive Vitamin D3 25 mcg (1,000 unit) tablet RxNorm: 638133 Take 1 Tablet(s) Oral QD 07/08/19 21 021 Inactive isosorbide dinitrate 30 mg tablet RxNorm: 844774 Take 1 Tablet(s) Oral QD 07/08/19 021 Inactive Levemir FlexTouch U-100 Insulin 100 unit/mL (3 mL) subcutaneous pen RxNorm: 173921 Inject 140 Unit(s) Subcutaneous BID 07/08/19 21 021 Inactive venlafaxine 75 mg tablet RxNorm: 100546 Take 1 Tablet(s) Oral QD 07/08/19 Inactive acetaminophen 500 mg tablet RxNorm: 125932 Take 1 Tablet(s) Oral TID as needed for headache 06/18/19 21 021 Inactive acetaminophen 500 mg tablet RxNorm: 525181 Take 1 Tablet(s) Oral TID as needed for headache 06/18/19 21 021 Inactive Lyrica 100 mg capsule RxNorm: 884695 Take 1 Capsule(s) Oral QHS every night at bedtime 06/11/19 21 021 Inactive Lyrica 50 mg capsule RxNorm: 785302 Take 1 Capsule(s) Oral QAM every morning 06/10/19 21 021 Inactive hydrocortisone 2.5 % topical cream RxNorm: 954502 Apply to bilateral groin creases Topical BID 05/15/20 20 021 Inactive clotrimazole 1 % topical cream RxNorm: 238019 Apply to bilateral groin areas Topical BID 05/15/20 20 021 Inactive Lyrica 50 mg capsule RxNorm: 727224 Take 1 Capsule(s) Oral QAM every morning 05/14/20 20 020 Inactive Lyrica 100 mg capsule RxNorm: 405104 Take 1 Capsule(s) Oral QHS every night [...] Inactive Nystop 100,000 unit/gram topical powder RxNorm: 444831 Apply to abd folds, under breasts and L side of groin Topical BID x 14 days, then BID PRN 04/08/20 20 021 Inactive dx: yeast dermatitis Lyrica 100 mg capsule RxNorm: 863376 Take 1 Capsule(s) Oral QHS every night at bedtime 03/13/20 20 Inactive Lyrica 50 mg capsule RxNorm: 524786 Take 1 Capsule(s) Oral QAM every morning 03/13/20 20 Inactive ketoconazole 2 % shampoo RxNorm: 992582 Apply Topical two times a week with showers 03/11/20 20 Inactive cholecalciferol (vitamin D3) 50 mcg (2,000 unit) tablet RxNorm: 928495 Take 1 Tablet(s) Oral QD 03/11/20 20 Inactive Zetia 10 mg tablet RxNorm: 182543 Take 1 Tablet(s) Oral QD 03/07/20 20 Inactive Zetia 10 mg tablet RxNorm: 059662 Take 1 Tablet(s) Oral QD 03/07/20 20 Inactive Lyrica 50 mg capsule RxNorm: 703026 Take 1 Capsule(s) Oral QAM every morning 02/15/20 20 Inactive Lyrica 100 mg capsule RxNorm: 586128 Take 1 Capsule(s) Oral QHS every night at bedtime 02/15/20 20 Inactive Lyrica 100 mg capsule RxNorm: 668805 Take 1 Capsule(s) Oral QHS every night at bedtime 02/15/20 20 Inactive Lyrica 50 mg capsule RxNorm: 676598 Take 1 Capsule(s) Oral QAM every morning 02/15/20 20 Inactive venlafaxine ER 75 mg capsule,extended release 24 hr RxNorm: 179525 Take 3 Capsule(s) Oral QD 06/12/2021 Activepolyethylene glycol 3350 17 gram/dose oral powderRxNorm: 002875Mdfh 17=1 capful Gram(s) Oral BID as needed mix with 4-8oz of zeprzw4606/12/2021ctive Levemir FlexTouch U-100 Insulin 100 unit/mL (3 mL) subcutaneous penRxNorm: 436591Hhqhia 80 Unit(s) Subcutaneous BID/Inactiveloperamide 2 mg capsuleRxNorm: 485522Netk 1 Capsule(s) Oral QID as yypxbs3406/12/2021ctive Novolog Flexpen U-100 Insulin aspart 100 unit/mL (3 mL) subcutaneousRxNorm: 5955045Pbxaoe 30 Unit(s) Subcutaneous TID with mealsInactive Medication Administered No Medication Administered data Immunizations Vaccine Codes Dose Date Status Covid-19 (Adult) CVX: 207 0.25 06/18/2021 Complete Influenza CVX: 05/29/2021 Covid-19 Unknown 06/25/2020 Covid-19 CVX: 208 [...] Performer Location Location Address Codes Cristiano e ([id number]) DOMICIL VISIT EST PA T Diagnosis: Type 2 diabetes mellitus with diabetic polyneuropathy, with long-term current use of insulin[ICD10: E11.42] Diagnosis: Hyperlipidemia associated with type 2 diabetes mellitus[ICD10: E11.69] Diagnosis: Hypertension associated with diabetes[ICD10: E11.59] Diagnosis: Stage 2 chronic 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[ICD10: E11.22] Diagnosis: Coronary artery disease involving red cliff coronary artery of red cliff heart, angina presence unspecified[ICD10: I25.10] Diagnosis: Seizure disorder[ICD10: G40.909] Diagnosis: DVT (deep venous thrombosis)[ICD10: I82.409]Tapan Wiseman on [address] [address]KRR-8: [id number] Plan of Care Planned Activity Notes Codes Status Date Referral: [facility] WPtel: [address], [address] [id number] USReferralRecords Pbdpwxci19/08/2023Patient Education: Patient Medication UqffafhXbrkzddav89/22/2022atient Education: Influenza VaccineCompleted 2Referral: [facility] WPtel: [phone] [id number] SUCxzxkqzfQqwteeiwx06/12/2022Referral: General CardiologyReferralCompleted 01/03/2021eferral: General PsychologistReferralClosed Instructions Comment Date Leonid is a Male being seen living at [facility]. Initial BPS visit 01/2020. PMHx including DMII, CAD w/ 5 stents, Depression, Seizure Disorder and CKD stage 3. He moved into [facility] in 12/2019 but after a hospitalization 05/2021 he moved to the [facility] to have closer nursing attention. Sister Jyotsna involved in his care cell# [phone] Guardian: Don (tapan met in person 09/01/21), now has Lexii (same group as don)Lab Schedule: * 10/06/2022 Ischemic Heart Disease Should be following closely with cruise counselor but refusing to see any specialist while living at this home.?? Diabetes refuses to see endo until he gets back into his home in [place] but metromobility won't pu there so advising nursing set up a telehealth appt. Since BGs are in the 300s, will increase levemir from 80units BID to 83units BID. Continue sliding scale.?? DVT (deep venous thrombosis) For now, continue anticoagulation due limited mobility, DM2, obesity, hyperlipidemia, HTN.?? Epilepsy Will monitor carbamazepine levels with routine labs.?? .07/08/2021
--- OUTSIDE RECORDS SUMMARY | 2022-11-09 23:20 | XMS_ITS | CCD ---
Author Name Rosalina Shirley PA-C Address [address] [place] [address] Phone Organization [facility] Phone Care Team Providers Care Metallographic Technician Name Role Phone Rosalina Shirley PA-C Primary Care Provider Unavailabl e Rosalina Shirley PA-C Chronic Care Management Unavaila ble Summary Purpose DataExchange Insurance Providers Payer name Policy type / Coverage type Covered alliance party ID Effective Begin Date Effective End Date Medicare [place] Part B [id number] Unknown Unknown Medicaid [place] Medicare Part B [id number] Unknown Unknown Family history Runs in the family Diagnosis Age At Onset No Known Diseases N/A Social History Social History Element Codes Description Effec tive Dates Living arrangements Unknown Correction 09/03/[address]: 4293082 Non-Smoker / No History of Smoking 09/02/[address]: 429249794 No Alcohol Consum ption 09/02/2020 Allergies, Adverse Reactions, Alerts Substance Reaction Codes Entered Date Inactivated Date Status LISINOPRIL RxNorm: 2942965/No Inactive DateActiveMetformin [id number] Inactive DateActive Problems Condition Codes Effective Dates Condition St atus Hyperlipidemia associated with type 2 di abetes mellitus ICD-10: E11.69 ICD-9: 250.8003/2ActiveHypertension associated with diabetesICD-10: E11.59 ICD-9: 250.8003/2ActiveMuscular painICD-10: M79.10 ICD-9: 729.103/2ActivePain of right heelICD-10: M79.671 ICD-9: 729.503/2ActiveStage 2 chronic 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ICD-10: E11.22 ICD-9: 250.4003/21/2022ActiveType 2 diabetes mellitus with diabetic polyneuropathy, with long-term current use of insulinICD-10: E11.42 ICD-9: 250.6003ctiveCoronary artery disease involving [place] coronary artery of [place] heart, angina presence unspecifiedICD-10: I25.10 ICD-9: 414.01007/08/2021ctiveDVT (deep venous thrombosis)ICD-10: I82.409 ICD-9: 453.40007/08/2021ctiveSeizure disorderICD-10: G40.909 ICD-9: 345.90007/08/2021ctiveEncounter for immunizationICD-10: Z23 ICD-9: V03.89/ctiveCandidiasis, intertrigoICD-10: B37.2 ICD-9: 112.301/ctiveHistory of anemia due to CKDICD-10: N18.9 ICD-9: 585.901ctiveStage 2 chronic kidney diseaseICD-10: N18.2 ICD-9: 585.201ctiveDepressionICD-10: F32.9 ICD-9: 44111/ctiveLearning disabilityICD-10: F81.9 ICD-9: 315.212/1ActiveSkin tagICD-10: L91.8 ICD-9: 701.911/ctiveVitamin D deficiencyICD-10: E55.9 ICD-9: 268.911/ctiveCellulitisICD-10: L03.90 ICD-9: 682.910/ctiveCallus of heelICD-10: L84 ICD-9: 19496/ctiveImpacted cerumen, left earICD-10: H61.22 ICD-9: 380.408/ctiveInappropriate sexual [...] 285.21010/01/2020esolvedGout due to renal impairmentICD-10: M10.30 ICD-9: 274.10009/03/2020ctiveLong term (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 insulinICD-10: Z79.4 1ActiveLower extremity edemaICD-10: R60.0 ICD-9: 782.304ctiveChronic kidney disease, stage 3 unspecifiedICD-10: N18.3004esolvedDandruff in adultICD-10: L21.0 ICD-9: 690.18007/08/2020ctiveContact with and (suspected) exposure to other viral communicable diseasesICD-10: Z20.828 ICD-9: V01.7902esolvedHyperhidrosis of palmsICD-10: L74.512 ICD-9: 705.9772XojvsuHrfrjkqxQezarvw22/28/2020ActiveDiabetes mellitus Type 6Ipxhvgd15/28/2020ActiveAnemia in chronic kidney diseaseICD-10: D63.1 02/12/2020ResolvedHyperlipidemia, unspecifiedICD-10: E78.509Resolved Medications Medication Codes Instructions Start Date Stop Date Status Fill Instructions Levemir FlexTouch U-100 Insulin 100 unit/mL (3 mL) subcutaneous pen RxNorm: 154167 Inject 86 Unit(s) Subcutaneous BID 08/05/19 22 022 Inactive d/c 83units BID Lyrica 100 mg capsule RxNorm: 595861 Take 1 Capsule(s) Oral QHS every night at bedtime Take 1 capsule by mouth once daily at bedtime 07/14/19 22 022 Inactive Lyrica 50 mg capsule RxNorm: 954957 Take 1 Capsule(s) Oral QAM every morning Take 1 capsule by mouth once daily 07/14/19 22 022 Inactive Levemir FlexTouch U-100 Insulin 100 unit/mL (3 mL) subcutaneous pen RxNorm: 364351 Inject 83 Unit(s) Subcutaneous BID 07/08/19 22 [...] test strip hydralazine 50 mg tablet RxNorm: 133401 Take 1 Tablet(s) Oral QID 05/05/20 Inactive isosorbide mononitrate ER 30 mg tablet,extended release 24 hr RxNorm: 900857 Take 1 Tablet(s) Oral QD 05/05/20 No Stop Date Active venlafaxine ER 225 mg tablet,extended release 24 hr RxNorm: 565033 Take 1 Tablet(s) Oral QD 05/05/20 Inactive venlafaxine ER 225 mg tablet,extended release 24 hr RxNorm: 503688 Take 1 Tablet(s) Oral QD 05/05/20 022 Inactive hydralazine 50 mg tablet RxNorm: 180884 Take 1 Tablet(s) Oral QID 05/05/20 Inactive aspirin 81 mg tablet,delayed release RxNorm: 276586 Take 1 Tablet(s) Oral QD 03/31/20 022 Inactive Vitamin D2 1,250 mcg (50,000 unit) capsule RxNorm: 2439517 Take 1 Capsule(s) Oral QW once a week x 12 weeks 03/31/20 022 Inactive Zetia 10 mg tablet RxNorm: 353158 Take 1 Tablet(s) Oral QD 03/31/20 022 Inactive Vitamin D2 1,250 mcg (50,000 unit) capsule RxNorm: 4203245 Take 1 Capsule(s) Oral QW once a week 03/31/20 Inactive Zetia 10 mg tablet RxNorm: 373062 Take 1 Tablet(s) Oral QD 03/31/20 Inactive hydralazine 25 mg tablet RxNorm: 308702 Take 1 Tablet(s) Oral QID 03/31/20 21 021 Inactive hydralazine 25 mg tablet RxNorm: 041828 Take 1 Tablet(s) Oral QID 03/31/20 021 Inactive hydralazine 10 mg tablet RxNorm: 286684 Take 1 Tablet(s) Oral QID 03/03/20 021 Inactive cephalexin 500 mg tablet RxNorm: 295176 Take 1 Tablet(s) Oral QID 02/27/20 021 Inactive cephalexin 500 mg tablet RxNorm: 774964 Take 1 Tablet(s) Oral QID 02/27/20 021 Inactive lisinopril 40 mg tablet RxNorm: 991103 Take 1 Tablet(s) Oral QD 02/11/20 023 Inactive Eliquis 5 mg tablet RxNorm: 4013858 Take 1 Tablet(s) Oral BID 01/05/20 022 Inactive Eliquis 5 mg tablet RxNorm: 3818722 Take 2 Tablet(s) Oral QD 01/01/20 021 Inactive Lyrica 50 mg capsule RxNorm: 020239 Take 1 Capsule(s) Oral QAM every morning 12/24/19 021 Inactive Lyrica 100 mg capsule RxNorm: 473127 Take 1 Capsule(s) Oral QHS every night at bedtime 12/24/19 021 Inactive clotrimazole 1 % topical cream RxNorm: 022945 Apply to right foot and toes Topical BID 12/04/19 21 023 Inactive metoprolol succinate ER 200 mg tablet,extended release 24 hr RxNorm: 124705 Take 1 Tablet(s) Oral QD 12/04/19 023 Inactive ciprofloxacin 500 mg tablet RxNorm: 517627 Take 1 Tablet(s) Oral QD 11/30/19 021 Inactive DX ofloxacin otic drops Accu-Chek Guide test strips RxNorm: USE 1 TO CHECK GLUCOSE 4 TIMES DAILY AND NEEDED 11/15/19 21 023 Inactive Blood Glucose Test strips RxNorm: Use 1 Test Strip QID at PRN 11/05/19 21 023 Inactive E11.42 lisinopril 30 mg tablet RxNorm: 216313 Take 1 Tablet(s) Oral QD 10/30/19 021 Inactive lisinopril 20 mg tablet RxNorm: 795391 Take 1 Tablet(s) Oral QD 10/23/19 21 021 Inactive lisinopril 20 mg tablet RxNorm: 584241 Take 1 Tablet(s) Oral QD 10/23/19 21 021 Inactive lisinopril 10 mg tablet RxNorm: 673827 Take 1 Tablet(s) Oral QD 10/02/19 021 Inactive icosapent ethyl 1 gram capsule RxNorm: 8010930 Take 2 Capsule(s) (2 gm) Oral BID with meals 09/12/19 022 Inactive Okay to dispense one 2gm tab if you have that available. icosapent ethyl 1 gram capsule RxNorm: 7914963 Take 2 Capsule(s) Oral BID 09/12/19 021 Inactive Okay to dispense one 2gm tab if you have that available. amlodipine 10 mg tablet RxNorm: 604017 Take 1 Tablet(s) Oral QD 09/04/19 022 Inactive aspirin 81 mg tablet,delayed release RxNorm: 303453 Take 1 Tablet(s) Oral QD 09/04/19 Inactive Levemir FlexTouch U-100 Insulin 100 unit/mL (3 mL) subcutaneous pen RxNorm: 016386 Inject 150 Unit(s) Subcutaneous BID 09/04/19 022 Inactive venlafaxine ER 150 mg tablet,extended release 24 hr RxNorm: 488233 Take 1 Tablet(s) Oral QD 09/04/19 021 Inactive clotrimazole-betame thasone 1 %-0.05 % topical cream RxNorm: 876763 Apply to rash on red area on left abdomen/chest Topical BID 08/10/19 21 021 Inactive amlodipine 5 mg tablet RxNorm: 203141 Take 1 Tablet(s) Oral QD 07/31/19 21 021 Inactive cephalexin 500 mg tablet RxNorm: 403470 Take 1 Tablet(s) Oral BID BID - Twice Daily 07/31/19 21 021 Inactive Start 08/01/20 pantoprazole 40 mg tablet,delayed release RxNorm: 843487 Take 1 Tablet(s) Oral QAM every morning 07/08/19 022 Inactive senna 8.6 mg tablet RxNorm: 375260 Take 1 Tablet(s) Oral QD 07/08/19 022 Inactive pravastatin 80 mg tablet RxNorm: 290452 Take 1 Tablet(s) Oral QHS every night at bedtime 07/08/19 022 Inactive clotrimazole 1 % topical cream RxNorm: 009999 Apply to bilateral groin areas Topical BID 07/08/19 Inactive carbamazepine 200 mg tablet RxNorm: 421690 Take 1 Tablet(s) Oral BID 07/08/19 Inactive torsemide 20 mg tablet RxNorm: 179404 Take 1 Tablet(s) Oral QD 07/08/19 023 Inactive clopidogrel 75 mg tablet RxNorm: 961260 Take 1 Tablet(s) Oral QD 07/08/19 021 Inactive Blood Glucose Test strips RxNorm: Use 1 Test Strip QID at PRN 07/08/19 Inactive E11.42 Novolog Flexpen U-100 Insulin aspart 100 unit/mL (3 mL) subcutaneous RxNorm: 0657526 Administer per sliding scale Milliliter(s) Subcutaneous TID 151-200: 10 u; 201-250: 20 u; 251-300: 30 u; 301-350: 40 u; 351-400: 50 u. 07/08/19 022 Inactive lisinopril 5 mg tablet RxNorm: 137848 Take 1 Tablet(s) Oral QD 07/08/19 021 Inactive Novolog Flexpen U-100 Insulin aspart 100 unit/mL (3 mL) subcutaneous RxNorm: 4718074 Inject 85 Unit(s) Subcutaneous TID 07/08/19 022 Inactive metoprolol succinate ER 200 mg tablet,extended release 24 hr RxNorm: 274569 Take 1 Tablet(s) Oral QD 07/08/19 021 Inactive Vitamin D3 25 mcg (1,000 unit) tablet RxNorm: 848394 Take 1 Tablet(s) Oral QD 07/08/19 21 021 Inactive isosorbide dinitrate 30 mg tablet RxNorm: 621146 Take 1 Tablet(s) Oral QD 07/08/19 021 Inactive Levemir FlexTouch U-100 Insulin 100 unit/mL (3 mL) subcutaneous pen RxNorm: 562982 Inject 140 Unit(s) Subcutaneous BID 07/08/19 Inactive venlafaxine 75 mg tablet RxNorm: 311235 Take 1 Tablet(s) Oral QD 07/08/19 Inactive acetaminophen 500 mg tablet RxNorm: 976741 Take 1 Tablet(s) Oral TID as needed for headache 06/18/19 Inactive acetaminophen 500 mg tablet RxNorm: 044288 Take 1 Tablet(s) Oral TID as needed for headache 06/18/19 021 Inactive Lyrica 100 mg capsule RxNorm: 229325 Take 1 Capsule(s) Oral QHS every night at bedtime 06/11/19 021 Inactive Lyrica 50 mg capsule RxNorm: 480954 Take 1 Capsule(s) Oral QAM every morning 06/10/19 21 021 Inactive hydrocortisone 2.5 % topical cream RxNorm: 451750 Apply to bilateral groin creases Topical BID 05/15/20 20 021 Inactive clotrimazole 1 % topical cream RxNorm: 889185 Apply to bilateral groin areas Topical BID 05/15/20 20 021 Inactive Lyrica 50 mg capsule RxNorm: 020590 Take 1 Capsule(s) Oral QAM every morning 05/14/20 20 020 Inactive Lyrica 100 mg capsule RxNorm: 177575 Take 1 Capsule(s) Oral QHS every night [...] Inactive Nystop 100,000 unit/gram topical powder RxNorm: 182548 Apply to abd folds, under breasts and L side of groin Topical BID x 14 days, then BID PRN 04/08/20 20 Inactive dx: yeast dermatitis Lyrica 100 mg capsule RxNorm: 959189 Take 1 Capsule(s) Oral QHS every night at bedtime 03/13/20 20 Inactive Lyrica 50 mg capsule RxNorm: 491810 Take 1 Capsule(s) Oral QAM every morning 03/13/20 20 Inactive ketoconazole 2 % shampoo RxNorm: 601988 Apply Topical two times a week with showers 03/11/20 20 Inactive cholecalciferol (vitamin D3) 50 mcg (2,000 unit) tablet RxNorm: 802329 Take 1 Tablet(s) Oral QD 03/11/20 20 021 Inactive Zetia 10 mg tablet RxNorm: 270826 Take 1 Tablet(s) Oral QD 03/07/20 20 021 Inactive Zetia 10 mg tablet RxNorm: 094320 Take 1 Tablet(s) Oral QD 03/07/20 20 Inactive Lyrica 50 mg capsule RxNorm: 695025 Take 1 Capsule(s) Oral QAM every morning 02/15/20 20 Inactive Lyrica 100 mg capsule RxNorm: 345492 Take 1 Capsule(s) Oral QHS every night at bedtime 02/15/20 20 Inactive Lyrica 100 mg capsule RxNorm: 126216 Take 1 Capsule(s) Oral QHS every night at bedtime 02/15/20 Inactive Lyrica 50 mg capsule RxNorm: 700517 Take 1 Capsule(s) Oral QAM every morning 02/15/20 Inactive venlafaxine ER 75 mg capsule,extended release 24 hr RxNorm: 963087 Take 3 Capsule(s) Oral QD 06/12/2021 Activepolyethylene glycol 3350 17 gram/dose oral powderRxNorm: 717408Wsqb 17=1 capful Gram(s) Oral BID as needed mix with 4-8oz of ojdphs7506/12/2021ctive Levemir FlexTouch U-100 Insulin 100 unit/mL (3 mL) subcutaneous penRxNorm: 432463Eofkne 80 Unit(s) Subcutaneous BID07/14//Inactiveloperamide 2 mg capsuleRxNorm: 050104Oexc 1 Capsule(s) Oral QID as sdwtuq6106/12/2021ctive Novolog Flexpen U-100 Insulin aspart 100 unit/mL (3 mL) subcutaneousRxNorm: 6407141Hhqqyg 30 Unit(s) Subcutaneous TID with meals10/07//Inactive Medication [...] BP > OR = 140 CPT-4: G8753 08/04/2021 CUI BP LESS 90 CPT-4: G8754 08/04/2021 Vital Signs Date Vital 08/04/2021 Blood Pressure 1: 146/73 Code: 8480-6 Heart Rate 1: 70 bpm Code: 8867-4 Respiratory Rate: 18 bpm SpO2: 92% Temperature: 36.9 (C) / 98.4 (F) Reason For Visit No Reason For Visit data Encounters Encounter Performer Location Location Address Codes Cristiano e ([id number]) DOMICIL VISIT EST CARLO T Diagnosis: Stage 2 chronic 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[ICD10: E11.22] Diagnosis: Hyperlipidemia associated with type 2 diabetes mellitus[ICD10: E11.69] Diagnosis: Hypertension associated with diabetes[ICD10: E11.59] Diagnosis: Type 2 diabetes mellitus with diabetic polyneuropathy, with long-term current use of insulin[ICD10: E11.42] Diagnosis: Pain of right heel[ICD10: M79.671] Diagnosis: Muscular pain[ICD10: M79.10][facility] [place], [place] [address]WMQ-9: 8044797/ Plan of Care Planned Activity Notes Codes Status Date Referral: [facility] WPtel: [address] [id number] USReferralRecords Hazgnvta97/08/2023Patient Education: Patient Medication KyuueqeGdsicbtxs70/21/2022Patient Education: Influenza VaccineCompleted 2Referral: [facility] WPtel: [address] IaensAA[address] KAEosnlyrgWezxsrqdq30/12/2022Referral: General CardiologyReferralCompleted 1Referral: General PsychologistReferralClosed Instructions Comment Date Leonid is a Male being seen living at [facility]. Initial BPS visit 01/2020. PMHx including DMII, CAD w/ 5 stents, Depression, Seizure Disorder and CKD stage 3. He moved into [facility] in 12/2019 but after a hospitalization 05/2021 he moved to the [facility] to have closer nursing attention. Sister Jyotsna involved in his care cell# [phone] Guardian: Don middleton met in person 09/01/21), now has Lexii (same group as don)Lab Schedule: * 10/06/2022 Muscular pain Suspect left sided pain is a result of moving recliner and pulling muscles. Encouraged ice, heat, and stretching. Update if symptoms worsen or new symptoms develop.?? Diabetes GH to set up endo appointment. BGs continue to be elevated especially in the mornings. Will start with increasing lantus to 86units BID but will need to consider increasing morning novolog, awaiting response from nursing regarding sliding scale.?? Pain of right heel suspect plantar fascititis complicated by peripheral neurapathy. Encourage supportive shoe and massaging foot as tolerated.?? .08/04/2021
--- OUTSIDE RECORDS SUMMARY | 2022-11-09 23:21 | XMS_ITS | CCD ---
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 Enrollment Services Dean Name Role Phone Tapan Shirley PA-C Primary Care Provider Unavailabl e Tapan Shirley PA-C Chronic Care Management Unavaila ble Summary Purpose DataExchange Insurance Providers Payer name Policy type / Coverage type Covered republican ID Effective Begin Date Effective End Date [place] [id number] Unknown Unknown [place] [id number] Unknown Unknown Family history Runs in the family Diagnosis Age At Onset No Known Diseases N/A Social History Social History Element Codes Description Effec tive Dates Living arrangements Unknown Residential 09/03/[address]: 0465243 Non-Smoker / No History of Smoking 09/02/[address]: 187367477 No Alcohol Consum ption 09/02/2020 Allergies, Adverse Reactions, Alerts Substance Reaction Codes Entered Date Inactivated Date Status LISINOPRIL RxNorm: 0023377No Inactive DateActiveMetformin VXfAemyumn06/28/2020No Inactive DateActive Problems Condition Codes Effective Dates [...] insulinICD-10: E11.42 ICD-9: 250.6003/ctiveCoronary artery disease involving [place] coronary artery of [place] heart, angina presence unspecifiedICD-10: I25.10 ICD-9: 414.0102/ctiveDVT (deep venous thrombosis)ICD-10: I82.409 ICD-9: 453.4002/ctiveSeizure disorderICD-10: G40.909 ICD-9: 345.9002/ctiveEncounter for immunizationICD-10: Z23 ICD-9: V03.8902/ctiveCandidiasis, intertrigoICD-10: B37.2 ICD-9: 112.301/ctiveHistory of anemia due to CKDICD-10: N18.9 ICD-9: 585.901/ctiveStage 2 chronic kidney diseaseICD-10: N18.2 ICD-9: 585.201ctiveDepressionICD-10: F32.9 ICD-9: 77968ctiveLearning disabilityICD-10: F81.9 ICD-9: 315.212ctiveSkin tagICD-10: L91.8 ICD-9: 701.911/ctiveVitamin D deficiencyICD-10: E55.9 ICD-9: 268.91/ctiveCellulitisICD-10: L03.90 ICD-9: 682.910/ctiveCallus of heelICD-10: L84 ICD-9: 23108/ctiveImpacted cerumen, left earICD-10: H61.22 ICD-9: 380.408/ctiveInappropriate sexual [...] Z20.828 ICD-9: V01.7902esolvedHyperhidrosis of palmsICD-10: L74.512 ICD-9: 705.9375XsvddfAgtilbubApyjotn55/28/2020ActiveDiabetes mellitus Type 5Zjahbno65/28/2020ActiveAnemia in chronic kidney diseaseICD-10: D63.1 02/12/2020ResolvedHyperlipidemia, unspecifiedICD-10: E78.509Resolved Medications Medication Codes Instructions Start Date Stop Date Status Fill Instructions benzoyl peroxide 10 % topical cleanser RxNorm: 745598 Apply 1 Application Topical QD apply to face, wash rinse and dry once daily (may change to QOD if drying) 08/19/19 22 022 Inactive (%covered by insurance) #60ml refill 11 dx: acne benzoyl peroxide 10 % topical cleanser RxNorm: 106063 Apply 1 Application Topical QD apply to face, wash rinse and dry once daily (may change to QOD if drying) 08/19/19 22 022 Inactive (%covered by insurance) #60ml refill 11 dx: acne benzoyl peroxide 10 % topical cleanser RxNorm: 174492 Apply 1 Application Topical QD apply to face, wash rinse and dry once daily (may change to QOD if drying) 08/19/19 22 022 Inactive (%covered by insurance) #60ml refill 11 dx: acne Lyrica 50 mg capsule RxNorm: 919511 Take 1 Capsule(s) Oral QAM every morning Take 1 capsule by mouth once daily 08/19/19 22 022 Inactive benzoyl peroxide 10 % topical cleanser RxNorm: 865150 Apply 1 Application Topical QD apply to face, wash rinse and dry once daily (may change to QOD if drying) 08/19/19 22 022 Inactive (%covered by insurance) #60ml refill 11 dx: acne Lyrica 100 mg capsule RxNorm: 905299 Take 1 Capsule(s) Oral QHS every night at bedtime Take 1 capsule by mouth once daily at bedtime 08/19/19 022 Inactive Lyrica 100 mg capsule RxNorm: 180933 Take 1 Capsule(s) Oral QHS every night at bedtime Take 1 capsule by mouth once daily at bedtime 08/16/19 Inactive Lyrica 50 mg capsule RxNorm: 371570 Take 1 Capsule(s) Oral QAM every morning Take 1 capsule by mouth once daily 08/16/19 Inactive Levemir FlexTouch U-100 Insulin 100 unit/mL (3 mL) subcutaneous pen RxNorm: 823697 Inject 86 Unit(s) Subcutaneous BID 08/05/19 22 Inactive d/c 83units BID Lyrica 100 mg capsule RxNorm: 446254 Take 1 Capsule(s) Oral QHS every night at bedtime Take 1 capsule by mouth once daily at bedtime 07/14/19 22 022 Inactive Lyrica 50 mg capsule RxNorm: 997581 Take 1 Capsule(s) Oral QAM every morning Take 1 capsule by mouth once daily 07/14/19 Inactive Levemir FlexTouch U-100 Insulin 100 unit/mL (3 mL) subcutaneous pen RxNorm: 337962 Inject 83 Unit(s) Subcutaneous BID 07/08/19 22 [...] test strip hydralazine 50 mg tablet RxNorm: 902219 Take 1 Tablet(s) Oral QID 05/05/20 21 022 Inactive isosorbide mononitrate ER 30 mg tablet,extended release 24 hr RxNorm: 312623 Take 1 Tablet(s) Oral QD 05/05/20 No Stop Date Active venlafaxine ER 225 mg tablet,extended release 24 hr RxNorm: 146093 Take 1 Tablet(s) Oral QD 05/05/20 21 Inactive venlafaxine ER 225 mg tablet,extended release 24 hr RxNorm: 587203 Take 1 Tablet(s) Oral QD 05/05/20 022 Inactive hydralazine 50 mg tablet RxNorm: 922508 Take 1 Tablet(s) Oral QID 05/05/20 Inactive aspirin 81 mg tablet,delayed release RxNorm: 985507 Take 1 Tablet(s) Oral QD 03/31/20 Inactive Vitamin D2 1,250 mcg (50,000 unit) capsule RxNorm: 0414841 Take 1 Capsule(s) Oral QW once a week x 12 weeks 03/31/20 Inactive Zetia 10 mg tablet RxNorm: 029223 Take 1 Tablet(s) Oral QD 03/31/20 Inactive Vitamin D2 1,250 mcg (50,000 unit) capsule RxNorm: 9011160 Take 1 Capsule(s) Oral QW once a week 03/31/20 Inactive Zetia 10 mg tablet RxNorm: 253874 Take 1 Tablet(s) Oral QD 03/31/20 Inactive hydralazine 25 mg tablet RxNorm: 194022 Take 1 Tablet(s) Oral QID 03/31/20 Inactive hydralazine 25 mg tablet RxNorm: 841218 Take 1 Tablet(s) Oral QID 03/31/20 Inactive hydralazine 10 mg tablet RxNorm: 453312 Take 1 Tablet(s) Oral QID 03/03/20 Inactive cephalexin 500 mg tablet RxNorm: 226445 Take 1 Tablet(s) Oral QID 02/27/20 021 Inactive cephalexin 500 mg tablet RxNorm: 730821 Take 1 Tablet(s) Oral QID 02/27/20 021 Inactive lisinopril 40 mg tablet RxNorm: 017000 Take 1 Tablet(s) Oral QD 02/11/20 023 Inactive Eliquis 5 mg tablet RxNorm: 6957367 Take 1 Tablet(s) Oral BID 01/05/20 21 022 Inactive Eliquis 5 mg tablet RxNorm: 6224796 Take 2 Tablet(s) Oral QD 01/01/20 21 021 Inactive Lyrica 50 mg capsule RxNorm: 673049 Take 1 Capsule(s) Oral QAM every morning 12/24/19 021 Inactive Lyrica 100 mg capsule RxNorm: 311569 Take 1 Capsule(s) Oral QHS every night at bedtime 12/24/19 021 Inactive clotrimazole 1 % topical cream RxNorm: 968942 Apply to right foot and toes Topical BID 12/04/19 21 023 Inactive metoprolol succinate ER 200 mg tablet,extended release 24 hr RxNorm: 969976 Take 1 Tablet(s) Oral QD 12/04/19 023 Inactive ciprofloxacin 500 mg tablet RxNorm: 231552 Take 1 Tablet(s) Oral QD 11/30/19 021 Inactive DX ofloxacin otic drops Accu-Chek Guide test strips RxNorm: USE 1 TO CHECK GLUCOSE 4 TIMES DAILY AND NEEDED 11/15/19 21 023 Inactive Blood Glucose Test strips RxNorm: Use 1 Test Strip QID at PRN 11/05/19 21 023 Inactive E11.42 lisinopril 30 mg tablet RxNorm: 147629 Take 1 Tablet(s) Oral QD 10/30/19 021 Inactive lisinopril 20 mg tablet RxNorm: 620808 Take 1 Tablet(s) Oral QD 10/23/19 21 021 Inactive lisinopril 20 mg tablet RxNorm: 701815 Take 1 Tablet(s) Oral QD 10/23/19 21 021 Inactive lisinopril 10 mg tablet RxNorm: 101727 Take 1 Tablet(s) Oral QD 10/02/19 21 021 Inactive icosapent ethyl 1 gram capsule RxNorm: 5594035 Take 2 Capsule(s) (2 gm) Oral BID with meals 09/12/19 Inactive Okay to dispense one 2gm tab if you have that available. icosapent ethyl 1 gram capsule RxNorm: 2712873 Take 2 Capsule(s) Oral BID 09/12/19 Inactive Okay to dispense one 2gm tab if you have that available. amlodipine 10 mg tablet RxNorm: 912872 Take 1 Tablet(s) Oral QD 09/04/19 Inactive aspirin 81 mg tablet,delayed release RxNorm: 873342 Take 1 Tablet(s) Oral QD 09/04/19 21 Inactive Levemir FlexTouch U-100 Insulin 100 unit/mL (3 mL) subcutaneous pen RxNorm: 328713 Inject 150 Unit(s) Subcutaneous BID 09/04/19 Inactive venlafaxine ER 150 mg tablet,extended release 24 hr RxNorm: 622149 Take 1 Tablet(s) Oral QD 09/04/19 Inactive clotrimazole-betame thasone 1 %-0.05 % topical cream RxNorm: 727455 Apply to rash on red area on left abdomen/chest Topical BID 08/10/19 21 Inactive amlodipine 5 mg tablet RxNorm: 815341 Take 1 Tablet(s) Oral QD 07/31/19 Inactive cephalexin 500 mg tablet RxNorm: 997625 Take 1 Tablet(s) Oral BID BID - Twice Daily 07/31/19 21 021 Inactive Start 08/01/20 pantoprazole 40 mg tablet,delayed release RxNorm: 288660 Take 1 Tablet(s) Oral QAM every morning 07/08/19 022 Inactive senna 8.6 mg tablet RxNorm: 348941 Take 1 Tablet(s) Oral QD 07/08/19 022 Inactive pravastatin 80 mg tablet RxNorm: 162462 Take 1 Tablet(s) Oral QHS every night at bedtime 07/08/19 21 022 Inactive clotrimazole 1 % topical cream RxNorm: 584156 Apply to bilateral groin areas Topical BID 07/08/19 21 Inactive carbamazepine 200 mg tablet RxNorm: 240487 Take 1 Tablet(s) Oral BID 07/08/19 21 022 Inactive torsemide 20 mg tablet RxNorm: 978667 Take 1 Tablet(s) Oral QD 07/08/19 21 023 Inactive clopidogrel 75 mg tablet RxNorm: 237185 Take 1 Tablet(s) Oral QD 07/08/19 21 021 Inactive Blood Glucose Test strips RxNorm: Use 1 Test Strip QID at PRN 07/08/19 21 Inactive E11.42 Novolog Flexpen U-100 Insulin aspart 100 unit/mL (3 mL) subcutaneous RxNorm: 9732447 Administer per sliding scale Milliliter(s) Subcutaneous TID 151-200: 10 u; 201-250: 20 u; 251-300: 30 u; 301-350: 40 u; 351-400: 50 u. 07/08/19 21 022 Inactive lisinopril 5 mg tablet RxNorm: 168781 Take 1 Tablet(s) Oral QD 07/08/19 021 Inactive Novolog Flexpen U-100 Insulin aspart 100 unit/mL (3 mL) subcutaneous RxNorm: 2547315 Inject 85 Unit(s) Subcutaneous TID 07/08/19 21 022 Inactive metoprolol succinate ER 200 mg tablet,extended release 24 hr RxNorm: 952443 Take 1 Tablet(s) Oral QD 07/08/19 21 021 Inactive Vitamin D3 25 mcg (1,000 unit) tablet RxNorm: 557596 Take 1 Tablet(s) Oral QD 07/08/19 21 021 Inactive isosorbide dinitrate 30 mg tablet RxNorm: 947699 Take 1 Tablet(s) Oral QD 07/08/19 21 021 Inactive Levemir FlexTouch U-100 Insulin 100 unit/mL (3 mL) subcutaneous pen RxNorm: 489815 Inject 140 Unit(s) Subcutaneous BID 07/08/19 21 021 Inactive venlafaxine 75 mg tablet RxNorm: 218375 Take 1 Tablet(s) Oral QD 07/08/19 21 Inactive acetaminophen 500 mg tablet RxNorm: 161730 Take 1 Tablet(s) Oral TID as needed for headache 06/18/19 21 Inactive acetaminophen 500 mg tablet RxNorm: 161006 Take 1 Tablet(s) Oral TID as needed for headache 06/18/19 21 021 Inactive Lyrica 100 mg capsule RxNorm: 359120 Take 1 Capsule(s) Oral QHS every night at bedtime 06/11/19 21 021 Inactive Lyrica 50 mg capsule RxNorm: 824215 Take 1 Capsule(s) Oral QAM every morning 06/10/19 21 021 Inactive hydrocortisone 2.5 % topical cream RxNorm: 946517 Apply to bilateral groin creases Topical BID 05/15/20 20 021 Inactive clotrimazole 1 % topical cream RxNorm: 454681 Apply to bilateral groin areas Topical BID 05/15/20 20 021 Inactive Lyrica 50 mg capsule RxNorm: 916258 Take 1 Capsule(s) Oral QAM every morning 05/14/20 20 020 Inactive Lyrica 100 mg capsule RxNorm: 502276 Take 1 Capsule(s) Oral QHS every night [...] Inactive Nystop 100,000 unit/gram topical powder RxNorm: 182100 Apply to abd folds, under breasts and L side of groin Topical BID x 14 days, then BID PRN 04/08/20 20 Inactive dx: yeast dermatitis Lyrica 100 mg capsule RxNorm: 298554 Take 1 Capsule(s) Oral QHS every night at bedtime 03/13/20 20 Inactive Lyrica 50 mg capsule RxNorm: 213237 Take 1 Capsule(s) Oral QAM every morning 03/13/20 Inactive ketoconazole 2 % shampoo RxNorm: 372983 Apply Topical two times a week with showers 03/11/20 20 Inactive cholecalciferol (vitamin D3) 50 mcg (2,000 unit) tablet RxNorm: 695785 Take 1 Tablet(s) Oral QD 03/11/20 20 Inactive Zetia 10 mg tablet RxNorm: 365692 Take 1 Tablet(s) Oral QD 03/07/20 20 Inactive Zetia 10 mg tablet RxNorm: 260583 Take 1 Tablet(s) Oral QD 03/07/20 20 Inactive Lyrica 50 mg capsule RxNorm: 064771 Take 1 Capsule(s) Oral QAM every morning 02/15/20 20 Inactive Lyrica 100 mg capsule RxNorm: 698202 Take 1 Capsule(s) Oral QHS every night at bedtime 02/15/20 Inactive Lyrica 100 mg capsule RxNorm: 877997 Take 1 Capsule(s) Oral QHS every night at bedtime 02/15/20 20 Inactive Lyrica 50 mg capsule RxNorm: 211321 Take 1 Capsule(s) Oral QAM every morning 02/15/20 20 Inactive venlafaxine ER 75 mg capsule,extended release 24 hr RxNorm: 578508 Take 3 Capsule(s) Oral QD 06/12/2021 Activepolyethylene glycol 3350 17 gram/dose oral powderRxNorm: 522242Gzvd 17=1 capful Gram(s) Oral BID as needed mix with 4-8oz of tbjcpz1306/12/2021ctive Levemir FlexTouch U-100 Insulin 100 unit/mL (3 mL) subcutaneous penRxNorm: 221320Bhvnts 80 Unit(s) Subcutaneous BID07/14//Inactiveloperamide 2 mg capsuleRxNorm: 216093Ocvf 1 Capsule(s) Oral QID as hlbshb0606/12/2021ctive Novolog Flexpen U-100 Insulin aspart 100 unit/mL (3 mL) subcutaneousRxNorm: 5762514Awpofo 30 Unit(s) Subcutaneous TID with meals/Inactive Medication [...] Codes Status Date Referral: [facility] WPtel: [phone] [id number] USReferralRecords Dsdqptft51/08/2023Referral: [facility] WPtel: [phone] [id number]/12/2022Referral: General CardiologyReferralCompleted 1Referral: General PsychologistReferralClosed Instructions Comment Date Leonid is a Male being seen living at [facility]. Initial [facility] visit 01/2020. PMHx including DMII, CAD w/ 5 stents, Depression, Seizure Disorder and CKD stage 3. He moved into [facility] in 12/2019 but after a hospitalization 05/2021 he moved to the [facility] to have closer nursing attention. Sister Jyotsna involved in his care cell# [phone] Guardian: Don (tapan met in person 09/01/21), now has Lexii (same group as don)Lab Schedule: * 10/06/2022
--- OUTSIDE RECORDS SUMMARY | 2022-11-09 23:22 | XMS_ITS | CCD ---
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 Ironmolder Name Role Phone Tapan Shirley PA-C Primary Care Provider Unavailabl e Tapan Shirley PA-C Chronic Care Management Unavaila ble Summary Purpose DataExchange Insurance Providers Payer name Policy type / Coverage type Covered alliance party ID Effective Begin Date Effective End Date [place] [id number] Unknown [place] [id number] Unknown Unknown Family history Runs in the family Diagnosis Age At Onset No Known Diseases N/A Social History Social History Element Codes Description Effec tive Dates Living arrangements Unknown [facility] 09/03/[address]: 2905273 Non-Smoker / No History of Smoking 09/02/[address]: 825470506 No Alcohol Consum ption 09/02/2020 Allergies, Adverse Reactions, Alerts Substance Reaction Codes Entered Date Inactivated Date Status LISINOPRIL RxNorm: 5541786No Inactive DateActiveMetformin RRmTfzbgzu22/28/2020No Inactive DateActive Problems Condition Codes Effective Dates [...] insulinICD-10: E11.42 ICD-9: 250.6003/ctiveCoronary artery disease involving [place] coronary artery of [place] heart, angina presence unspecifiedICD-10: I25.10 ICD-9: 414.0102/ctiveDVT (deep venous thrombosis)ICD-10: I82.409 ICD-9: 453.4002/ctiveSeizure disorderICD-10: G40.909 ICD-9: 345.9002/ctiveEncounter for immunizationICD-10: Z23 ICD-9: V03.8902/ctiveCandidiasis, intertrigoICD-10: B37.2 ICD-9: 112.301/ctiveHistory of anemia due to CKDICD-10: N18.9 ICD-9: 585.901/ctiveStage 2 chronic kidney diseaseICD-10: N18.2 ICD-9: 585.201ctiveDepressionICD-10: F32.9 ICD-9: 39478ctiveLearning disabilityICD-10: F81.9 ICD-9: 315.212ctiveSkin tagICD-10: L91.8 ICD-9: 701.911/ctiveVitamin D deficiencyICD-10: E55.9 ICD-9: 268.91/ctiveCellulitisICD-10: L03.90 ICD-9: 682.910/ctiveCallus of heelICD-10: L84 ICD-9: 51277/ctiveImpacted cerumen, left earICD-10: H61.22 ICD-9: 380.408/ctiveInappropriate sexual [...] Z20.828 ICD-9: V01.7902esolvedHyperhidrosis of palmsICD-10: L74.512 ICD-9: 705.2701YeadxpOokebskyQnytrdj24/28/2020ActiveDiabetes mellitus Type 0Pinuqvo53/28/2020ActiveAnemia in chronic kidney diseaseICD-10: D63.1 02/12/2020ResolvedHyperlipidemia, unspecifiedICD-10: E78.509Resolved Medications Medication Codes Instructions Start Date Stop Date Status Fill Instructions benzoyl peroxide 10 % topical cleanser RxNorm: 878273 Apply 1 Application Topical QD apply to face, wash rinse and dry once daily (may change to QOD if drying) 08/19/19 22 022 Inactive (%covered by insurance) #60ml refill 11 dx: acne benzoyl peroxide 10 % topical cleanser RxNorm: 867936 Apply 1 Application Topical QD apply to face, wash rinse and dry once daily (may change to QOD if drying) 08/19/19 22 022 Inactive (%covered by insurance) #60ml refill 11 dx: acne benzoyl peroxide 10 % topical cleanser RxNorm: 936394 Apply 1 Application Topical QD apply to face, wash rinse and dry once daily (may change to QOD if drying) 08/19/19 22 022 Inactive (%covered by insurance) #60ml refill 11 dx: acne Lyrica 50 mg capsule RxNorm: 250377 Take 1 Capsule(s) Oral QAM every morning Take 1 capsule by mouth once daily 08/19/19 22 022 Inactive benzoyl peroxide 10 % topical cleanser RxNorm: 379618 Apply 1 Application Topical QD apply to face, wash rinse and dry once daily (may change to QOD if drying) 08/19/19 22 022 Inactive (%covered by insurance) #60ml refill 11 dx: acne Lyrica 100 mg capsule RxNorm: 500502 Take 1 Capsule(s) Oral QHS every night at bedtime Take 1 capsule by mouth once daily at bedtime 08/19/19 022 Inactive Lyrica 100 mg capsule RxNorm: 975068 Take 1 Capsule(s) Oral QHS every night at bedtime Take 1 capsule by mouth once daily at bedtime 08/16/19 Inactive Lyrica 50 mg capsule RxNorm: 489570 Take 1 Capsule(s) Oral QAM every morning Take 1 capsule by mouth once daily 08/16/19 Inactive Levemir FlexTouch U-100 Insulin 100 unit/mL (3 mL) subcutaneous pen RxNorm: 343278 Inject 86 Unit(s) Subcutaneous BID 08/05/19 22 Inactive d/c 83units BID Lyrica 100 mg capsule RxNorm: 061032 Take 1 Capsule(s) Oral QHS every night at bedtime Take 1 capsule by mouth once daily at bedtime 07/14/19 22 022 Inactive Lyrica 50 mg capsule RxNorm: 111425 Take 1 Capsule(s) Oral QAM every morning Take 1 capsule by mouth once daily 07/14/19 Inactive Levemir FlexTouch U-100 Insulin 100 unit/mL (3 mL) subcutaneous pen RxNorm: 091537 Inject 83 Unit(s) Subcutaneous BID 07/08/19 22 [...] test strip hydralazine 50 mg tablet RxNorm: 546286 Take 1 Tablet(s) Oral QID 05/05/20 21 022 Inactive isosorbide mononitrate ER 30 mg tablet,extended release 24 hr RxNorm: 127753 Take 1 Tablet(s) Oral QD 05/05/20 No Stop Date Active venlafaxine ER 225 mg tablet,extended release 24 hr RxNorm: 498871 Take 1 Tablet(s) Oral QD 05/05/20 21 Inactive venlafaxine ER 225 mg tablet,extended release 24 hr RxNorm: 366417 Take 1 Tablet(s) Oral QD 05/05/20 022 Inactive hydralazine 50 mg tablet RxNorm: 903670 Take 1 Tablet(s) Oral QID 05/05/20 Inactive aspirin 81 mg tablet,delayed release RxNorm: 244063 Take 1 Tablet(s) Oral QD 03/31/20 Inactive Vitamin D2 1,250 mcg (50,000 unit) capsule RxNorm: 7239905 Take 1 Capsule(s) Oral QW once a week x 12 weeks 03/31/20 Inactive Zetia 10 mg tablet RxNorm: 278916 Take 1 Tablet(s) Oral QD 03/31/20 Inactive Vitamin D2 1,250 mcg (50,000 unit) capsule RxNorm: 2665762 Take 1 Capsule(s) Oral QW once a week 03/31/20 Inactive Zetia 10 mg tablet RxNorm: 647385 Take 1 Tablet(s) Oral QD 03/31/20 Inactive hydralazine 25 mg tablet RxNorm: 259841 Take 1 Tablet(s) Oral QID 03/31/20 Inactive hydralazine 25 mg tablet RxNorm: 758533 Take 1 Tablet(s) Oral QID 03/31/20 Inactive hydralazine 10 mg tablet RxNorm: 529543 Take 1 Tablet(s) Oral QID 03/03/20 Inactive cephalexin 500 mg tablet RxNorm: 689054 Take 1 Tablet(s) Oral QID 02/27/20 021 Inactive cephalexin 500 mg tablet RxNorm: 449377 Take 1 Tablet(s) Oral QID 02/27/20 021 Inactive lisinopril 40 mg tablet RxNorm: 798001 Take 1 Tablet(s) Oral QD 02/11/20 023 Inactive Eliquis 5 mg tablet RxNorm: 9225075 Take 1 Tablet(s) Oral BID 01/05/20 21 022 Inactive Eliquis 5 mg tablet RxNorm: 8626946 Take 2 Tablet(s) Oral QD 01/01/20 21 021 Inactive Lyrica 50 mg capsule RxNorm: 384661 Take 1 Capsule(s) Oral QAM every morning 12/24/19 021 Inactive Lyrica 100 mg capsule RxNorm: 816863 Take 1 Capsule(s) Oral QHS every night at bedtime 12/24/19 021 Inactive clotrimazole 1 % topical cream RxNorm: 572493 Apply to right foot and toes Topical BID 12/04/19 21 023 Inactive metoprolol succinate ER 200 mg tablet,extended release 24 hr RxNorm: 326367 Take 1 Tablet(s) Oral QD 12/04/19 023 Inactive ciprofloxacin 500 mg tablet RxNorm: 709622 Take 1 Tablet(s) Oral QD 11/30/19 021 Inactive DX ofloxacin otic drops Accu-Chek Guide test strips RxNorm: USE 1 TO CHECK GLUCOSE 4 TIMES DAILY AND NEEDED 11/15/19 21 023 Inactive Blood Glucose Test strips RxNorm: Use 1 Test Strip QID at PRN 11/05/19 21 023 Inactive E11.42 lisinopril 30 mg tablet RxNorm: 034033 Take 1 Tablet(s) Oral QD 10/30/19 021 Inactive lisinopril 20 mg tablet RxNorm: 871610 Take 1 Tablet(s) Oral QD 10/23/19 21 021 Inactive lisinopril 20 mg tablet RxNorm: 817028 Take 1 Tablet(s) Oral QD 10/23/19 21 021 Inactive lisinopril 10 mg tablet RxNorm: 396117 Take 1 Tablet(s) Oral QD 10/02/19 21 021 Inactive icosapent ethyl 1 gram capsule RxNorm: 7389946 Take 2 Capsule(s) (2 gm) Oral BID with meals 09/12/19 Inactive Okay to dispense one 2gm tab if you have that available. icosapent ethyl 1 gram capsule RxNorm: 1530310 Take 2 Capsule(s) Oral BID 09/12/19 Inactive Okay to dispense one 2gm tab if you have that available. amlodipine 10 mg tablet RxNorm: 555992 Take 1 Tablet(s) Oral QD 09/04/19 Inactive aspirin 81 mg tablet,delayed release RxNorm: 579455 Take 1 Tablet(s) Oral QD 09/04/19 21 Inactive Levemir FlexTouch U-100 Insulin 100 unit/mL (3 mL) subcutaneous pen RxNorm: 233513 Inject 150 Unit(s) Subcutaneous BID 09/04/19 Inactive venlafaxine ER 150 mg tablet,extended release 24 hr RxNorm: 219982 Take 1 Tablet(s) Oral QD 09/04/19 Inactive clotrimazole-betame thasone 1 %-0.05 % topical cream RxNorm: 429227 Apply to rash on red area on left abdomen/chest Topical BID 08/10/19 21 Inactive amlodipine 5 mg tablet RxNorm: 857284 Take 1 Tablet(s) Oral QD 07/31/19 Inactive cephalexin 500 mg tablet RxNorm: 665182 Take 1 Tablet(s) Oral BID BID - Twice Daily 07/31/19 21 021 Inactive Start 08/01/20 pantoprazole 40 mg tablet,delayed release RxNorm: 547224 Take 1 Tablet(s) Oral QAM every morning 07/08/19 022 Inactive senna 8.6 mg tablet RxNorm: 859561 Take 1 Tablet(s) Oral QD 07/08/19 022 Inactive pravastatin 80 mg tablet RxNorm: 246749 Take 1 Tablet(s) Oral QHS every night at bedtime 07/08/19 21 022 Inactive clotrimazole 1 % topical cream RxNorm: 036082 Apply to bilateral groin areas Topical BID 07/08/19 21 Inactive carbamazepine 200 mg tablet RxNorm: 566030 Take 1 Tablet(s) Oral BID 07/08/19 21 022 Inactive torsemide 20 mg tablet RxNorm: 883007 Take 1 Tablet(s) Oral QD 07/08/19 21 023 Inactive clopidogrel 75 mg tablet RxNorm: 574427 Take 1 Tablet(s) Oral QD 07/08/19 21 021 Inactive Blood Glucose Test strips RxNorm: Use 1 Test Strip QID at PRN 07/08/19 21 Inactive E11.42 Novolog Flexpen U-100 Insulin aspart 100 unit/mL (3 mL) subcutaneous RxNorm: 2672570 Administer per sliding scale Milliliter(s) Subcutaneous TID 151-200: 10 u; 201-250: 20 u; 251-300: 30 u; 301-350: 40 u; 351-400: 50 u. 07/08/19 21 022 Inactive lisinopril 5 mg tablet RxNorm: 474467 Take 1 Tablet(s) Oral QD 07/08/19 021 Inactive Novolog Flexpen U-100 Insulin aspart 100 unit/mL (3 mL) subcutaneous RxNorm: 7301669 Inject 85 Unit(s) Subcutaneous TID 07/08/19 21 022 Inactive metoprolol succinate ER 200 mg tablet,extended release 24 hr RxNorm: 049859 Take 1 Tablet(s) Oral QD 07/08/19 21 021 Inactive Vitamin D3 25 mcg (1,000 unit) tablet RxNorm: 036833 Take 1 Tablet(s) Oral QD 07/08/19 21 021 Inactive isosorbide dinitrate 30 mg tablet RxNorm: 416883 Take 1 Tablet(s) Oral QD 07/08/19 21 021 Inactive Levemir FlexTouch U-100 Insulin 100 unit/mL (3 mL) subcutaneous pen RxNorm: 525896 Inject 140 Unit(s) Subcutaneous BID 07/08/19 21 021 Inactive venlafaxine 75 mg tablet RxNorm: 244249 Take 1 Tablet(s) Oral QD 07/08/19 21 Inactive acetaminophen 500 mg tablet RxNorm: 395436 Take 1 Tablet(s) Oral TID as needed for headache 06/18/19 21 Inactive acetaminophen 500 mg tablet RxNorm: 165403 Take 1 Tablet(s) Oral TID as needed for headache 06/18/19 21 021 Inactive Lyrica 100 mg capsule RxNorm: 830694 Take 1 Capsule(s) Oral QHS every night at bedtime 06/11/19 21 021 Inactive Lyrica 50 mg capsule RxNorm: 408847 Take 1 Capsule(s) Oral QAM every morning 06/10/19 21 021 Inactive hydrocortisone 2.5 % topical cream RxNorm: 729338 Apply to bilateral groin creases Topical BID 05/15/20 20 021 Inactive clotrimazole 1 % topical cream RxNorm: 111992 Apply to bilateral groin areas Topical BID 05/15/20 20 021 Inactive Lyrica 50 mg capsule RxNorm: 453556 Take 1 Capsule(s) Oral QAM every morning 05/14/20 20 020 Inactive Lyrica 100 mg capsule RxNorm: 867714 Take 1 Capsule(s) Oral QHS every night [...] Inactive Nystop 100,000 unit/gram topical powder RxNorm: 668085 Apply to abd folds, under breasts and L side of groin Topical BID x 14 days, then BID PRN 04/08/20 20 Inactive dx: yeast dermatitis Lyrica 100 mg capsule RxNorm: 332465 Take 1 Capsule(s) Oral QHS every night at bedtime 03/13/20 20 Inactive Lyrica 50 mg capsule RxNorm: 297709 Take 1 Capsule(s) Oral QAM every morning 03/13/20 Inactive ketoconazole 2 % shampoo RxNorm: 058720 Apply Topical two times a week with showers 03/11/20 20 Inactive cholecalciferol (vitamin D3) 50 mcg (2,000 unit) tablet RxNorm: 101625 Take 1 Tablet(s) Oral QD 03/11/20 20 Inactive Zetia 10 mg tablet RxNorm: 932961 Take 1 Tablet(s) Oral QD 03/07/20 20 Inactive Zetia 10 mg tablet RxNorm: 616912 Take 1 Tablet(s) Oral QD 03/07/20 20 Inactive Lyrica 50 mg capsule RxNorm: 410969 Take 1 Capsule(s) Oral QAM every morning 02/15/20 20 Inactive Lyrica 100 mg capsule RxNorm: 092140 Take 1 Capsule(s) Oral QHS every night at bedtime 02/15/20 Inactive Lyrica 100 mg capsule RxNorm: 439044 Take 1 Capsule(s) Oral QHS every night at bedtime 02/15/20 20 Inactive Lyrica 50 mg capsule RxNorm: 701262 Take 1 Capsule(s) Oral QAM every morning 02/15/20 20 Inactive venlafaxine ER 75 mg capsule,extended release 24 hr RxNorm: 022402 Take 3 Capsule(s) Oral QD 06/12/2021 Activepolyethylene glycol 3350 17 gram/dose oral powderRxNorm: 672702Robq 17=1 capful Gram(s) Oral BID as needed mix with 4-8oz of gicoll1006/12/2021ctive Levemir FlexTouch U-100 Insulin 100 unit/mL (3 mL) subcutaneous penRxNorm: 429881Svalbi 80 Unit(s) Subcutaneous BID07/14//Inactiveloperamide 2 mg capsuleRxNorm: 881423Uind 1 Capsule(s) Oral QID as nfiqaf8606/12/2021ctive Novolog Flexpen U-100 Insulin aspart 100 unit/mL (3 mL) subcutaneousRxNorm: 7929771Nwrdpn 30 Unit(s) Subcutaneous TID with meals/Inactive Medication [...] of [facility] WPtel: [phone] [id number] USReferralRecords Jjwbrdvw21/08/2023Referral: [facility] WPtel: [address] [id number]/12/2022Referral: General CardiologyReferralCompleted 1Referral: General PsychologistReferralClosed Instructions Comment Date Leonid is a Male being seen living at [facility]. Initial [facility] visit 01/2020. PMHx including DMII, CAD w/ 5 stents, Depression, Seizure Disorder and CKD stage 3. He moved into [facility] in 12/2019 but after a hospitalization 05/2021 he moved to the [facility] to have closer nursing attention. Sister Jyotsna involved in his care cell# [phone] Guardian: Don (tapan met in person 09/01/21), now has Lexii (same group as don)Lab Schedule: * 10/06/2022
--- OUTSIDE RECORDS SUMMARY | 2022-11-09 23:22 | XMS_ITS | CCD ---
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 Alarm Mechanic Name Role Phone Tapan Shirley PA-C Primary Care Provider Unavailabl e Tapan Shirley PA-C Chronic Care Management Unavaila ble Summary Purpose DataExchange Insurance Providers Payer name Policy type / Coverage type Covered libertarian ID Effective Begin Date Effective End Date [place] [id number] Unknown [place] [id number] Unknown Unknown Family history Runs in the family Diagnosis Age At Onset No Known Diseases N/A Social History Social History Element Codes Description Effec tive Dates Living arrangements Unknown Snf 09/03/[address]: 7905027 Non-Smoker / No History of Smoking 09/02/[address]: 534154302 No Alcohol Consum ption 09/02/2020 Allergies, Adverse Reactions, Alerts Substance Reaction Codes Entered Date Inactivated Date Status LISINOPRIL RxNorm: 6725075No Inactive DateActiveMetformin XHfStefnot11/28/2020No Inactive DateActive Problems Condition Codes Effective Dates [...] insulinICD-10: E11.42 ICD-9: 250.6003/ctiveCoronary artery disease involving [place] coronary artery of [place] heart, angina presence unspecifiedICD-10: I25.10 ICD-9: 414.0102/ctiveDVT (deep venous thrombosis)ICD-10: I82.409 ICD-9: 453.4002/ctiveSeizure disorderICD-10: G40.909 ICD-9: 345.9002/ctiveEncounter for immunizationICD-10: Z23 ICD-9: V03.8902/ctiveCandidiasis, intertrigoICD-10: B37.2 ICD-9: 112.301/ctiveHistory of anemia due to CKDICD-10: N18.9 ICD-9: 585.901/ctiveStage 2 chronic kidney diseaseICD-10: N18.2 ICD-9: 585.201ctiveDepressionICD-10: F32.9 ICD-9: 07152ctiveLearning disabilityICD-10: F81.9 ICD-9: 315.212ctiveSkin tagICD-10: L91.8 ICD-9: 701.911/ctiveVitamin D deficiencyICD-10: E55.9 ICD-9: 268.91/ctiveCellulitisICD-10: L03.90 ICD-9: 682.910/ctiveCallus of heelICD-10: L84 ICD-9: 83312/ctiveImpacted cerumen, left earICD-10: H61.22 ICD-9: 380.408/ctiveInappropriate sexual [...] Z20.828 ICD-9: V01.7902esolvedHyperhidrosis of palmsICD-10: L74.512 ICD-9: 705.6324OwdkjmZucznyddUtwvsnh71/28/2020ActiveDiabetes mellitus Type 1Gnmlmzb52/28/2020ActiveAnemia in chronic kidney diseaseICD-10: D63.1 02/12/2020ResolvedHyperlipidemia, unspecifiedICD-10: E78.509Resolved Medications Medication Codes Instructions Start Date Stop Date Status Fill Instructions benzoyl peroxide 10 % topical cleanser RxNorm: 591729 Apply 1 Application Topical QD apply to face, wash rinse and dry once daily (may change to QOD if drying) 08/19/19 22 022 Inactive (%covered by insurance) #60ml refill 11 dx: acne benzoyl peroxide 10 % topical cleanser RxNorm: 911080 Apply 1 Application Topical QD apply to face, wash rinse and dry once daily (may change to QOD if drying) 08/19/19 22 022 Inactive (%covered by insurance) #60ml refill 11 dx: acne benzoyl peroxide 10 % topical cleanser RxNorm: 744785 Apply 1 Application Topical QD apply to face, wash rinse and dry once daily (may change to QOD if drying) 08/19/19 22 022 Inactive (%covered by insurance) #60ml refill 11 dx: acne Lyrica 50 mg capsule RxNorm: 891874 Take 1 Capsule(s) Oral QAM every morning Take 1 capsule by mouth once daily 08/19/19 22 022 Inactive benzoyl peroxide 10 % topical cleanser RxNorm: 726136 Apply 1 Application Topical QD apply to face, wash rinse and dry once daily (may change to QOD if drying) 08/19/19 22 022 Inactive (%covered by insurance) #60ml refill 11 dx: acne Lyrica 100 mg capsule RxNorm: 810206 Take 1 Capsule(s) Oral QHS every night at bedtime Take 1 capsule by mouth once daily at bedtime 08/19/19 022 Inactive Lyrica 100 mg capsule RxNorm: 878101 Take 1 Capsule(s) Oral QHS every night at bedtime Take 1 capsule by mouth once daily at bedtime 08/16/19 Inactive Lyrica 50 mg capsule RxNorm: 537452 Take 1 Capsule(s) Oral QAM every morning Take 1 capsule by mouth once daily 08/16/19 Inactive Levemir FlexTouch U-100 Insulin 100 unit/mL (3 mL) subcutaneous pen RxNorm: 670512 Inject 86 Unit(s) Subcutaneous BID 08/05/19 22 Inactive d/c 83units BID Lyrica 100 mg capsule RxNorm: 201064 Take 1 Capsule(s) Oral QHS every night at bedtime Take 1 capsule by mouth once daily at bedtime 07/14/19 22 022 Inactive Lyrica 50 mg capsule RxNorm: 173378 Take 1 Capsule(s) Oral QAM every morning Take 1 capsule by mouth once daily 07/14/19 Inactive Levemir FlexTouch U-100 Insulin 100 unit/mL (3 mL) subcutaneous pen RxNorm: 237013 Inject 83 Unit(s) Subcutaneous BID 07/08/19 22 [...] test strip hydralazine 50 mg tablet RxNorm: 998052 Take 1 Tablet(s) Oral QID 05/05/20 21 022 Inactive isosorbide mononitrate ER 30 mg tablet,extended release 24 hr RxNorm: 743407 Take 1 Tablet(s) Oral QD 05/05/20 No Stop Date Active venlafaxine ER 225 mg tablet,extended release 24 hr RxNorm: 976688 Take 1 Tablet(s) Oral QD 05/05/20 21 Inactive venlafaxine ER 225 mg tablet,extended release 24 hr RxNorm: 810949 Take 1 Tablet(s) Oral QD 05/05/20 022 Inactive hydralazine 50 mg tablet RxNorm: 199735 Take 1 Tablet(s) Oral QID 05/05/20 Inactive aspirin 81 mg tablet,delayed release RxNorm: 841268 Take 1 Tablet(s) Oral QD 03/31/20 Inactive Vitamin D2 1,250 mcg (50,000 unit) capsule RxNorm: 6382741 Take 1 Capsule(s) Oral QW once a week x 12 weeks 03/31/20 Inactive Zetia 10 mg tablet RxNorm: 145676 Take 1 Tablet(s) Oral QD 03/31/20 Inactive Vitamin D2 1,250 mcg (50,000 unit) capsule RxNorm: 5914646 Take 1 Capsule(s) Oral QW once a week 03/31/20 Inactive Zetia 10 mg tablet RxNorm: 055113 Take 1 Tablet(s) Oral QD 03/31/20 Inactive hydralazine 25 mg tablet RxNorm: 428310 Take 1 Tablet(s) Oral QID 03/31/20 Inactive hydralazine 25 mg tablet RxNorm: 375943 Take 1 Tablet(s) Oral QID 03/31/20 Inactive hydralazine 10 mg tablet RxNorm: 989807 Take 1 Tablet(s) Oral QID 03/03/20 Inactive cephalexin 500 mg tablet RxNorm: 835720 Take 1 Tablet(s) Oral QID 02/27/20 021 Inactive cephalexin 500 mg tablet RxNorm: 845547 Take 1 Tablet(s) Oral QID 02/27/20 021 Inactive lisinopril 40 mg tablet RxNorm: 155551 Take 1 Tablet(s) Oral QD 02/11/20 023 Inactive Eliquis 5 mg tablet RxNorm: 0411086 Take 1 Tablet(s) Oral BID 01/05/20 21 022 Inactive Eliquis 5 mg tablet RxNorm: 7828121 Take 2 Tablet(s) Oral QD 01/01/20 21 021 Inactive Lyrica 50 mg capsule RxNorm: 417818 Take 1 Capsule(s) Oral QAM every morning 12/24/19 021 Inactive Lyrica 100 mg capsule RxNorm: 275783 Take 1 Capsule(s) Oral QHS every night at bedtime 12/24/19 021 Inactive clotrimazole 1 % topical cream RxNorm: 926797 Apply to right foot and toes Topical BID 12/04/19 21 023 Inactive metoprolol succinate ER 200 mg tablet,extended release 24 hr RxNorm: 174408 Take 1 Tablet(s) Oral QD 12/04/19 023 Inactive ciprofloxacin 500 mg tablet RxNorm: 786881 Take 1 Tablet(s) Oral QD 11/30/19 021 Inactive DX ofloxacin otic drops Accu-Chek Guide test strips RxNorm: USE 1 TO CHECK GLUCOSE 4 TIMES DAILY AND NEEDED 11/15/19 21 023 Inactive Blood Glucose Test strips RxNorm: Use 1 Test Strip QID at PRN 11/05/19 21 023 Inactive E11.42 lisinopril 30 mg tablet RxNorm: 320180 Take 1 Tablet(s) Oral QD 10/30/19 021 Inactive lisinopril 20 mg tablet RxNorm: 766192 Take 1 Tablet(s) Oral QD 10/23/19 21 021 Inactive lisinopril 20 mg tablet RxNorm: 404888 Take 1 Tablet(s) Oral QD 10/23/19 21 021 Inactive lisinopril 10 mg tablet RxNorm: 606412 Take 1 Tablet(s) Oral QD 10/02/19 21 021 Inactive icosapent ethyl 1 gram capsule RxNorm: 4305051 Take 2 Capsule(s) (2 gm) Oral BID with meals 09/12/19 Inactive Okay to dispense one 2gm tab if you have that available. icosapent ethyl 1 gram capsule RxNorm: 6705759 Take 2 Capsule(s) Oral BID 09/12/19 Inactive Okay to dispense one 2gm tab if you have that available. amlodipine 10 mg tablet RxNorm: 250575 Take 1 Tablet(s) Oral QD 09/04/19 Inactive aspirin 81 mg tablet,delayed release RxNorm: 396907 Take 1 Tablet(s) Oral QD 09/04/19 21 Inactive Levemir FlexTouch U-100 Insulin 100 unit/mL (3 mL) subcutaneous pen RxNorm: 797774 Inject 150 Unit(s) Subcutaneous BID 09/04/19 Inactive venlafaxine ER 150 mg tablet,extended release 24 hr RxNorm: 971465 Take 1 Tablet(s) Oral QD 09/04/19 Inactive clotrimazole-betame thasone 1 %-0.05 % topical cream RxNorm: 211607 Apply to rash on red area on left abdomen/chest Topical BID 08/10/19 21 Inactive amlodipine 5 mg tablet RxNorm: 288135 Take 1 Tablet(s) Oral QD 07/31/19 Inactive cephalexin 500 mg tablet RxNorm: 341141 Take 1 Tablet(s) Oral BID BID - Twice Daily 07/31/19 21 021 Inactive Start 08/01/20 pantoprazole 40 mg tablet,delayed release RxNorm: 468456 Take 1 Tablet(s) Oral QAM every morning 07/08/19 022 Inactive senna 8.6 mg tablet RxNorm: 634223 Take 1 Tablet(s) Oral QD 07/08/19 022 Inactive pravastatin 80 mg tablet RxNorm: 653232 Take 1 Tablet(s) Oral QHS every night at bedtime 07/08/19 21 022 Inactive clotrimazole 1 % topical cream RxNorm: 668664 Apply to bilateral groin areas Topical BID 07/08/19 21 Inactive carbamazepine 200 mg tablet RxNorm: 895609 Take 1 Tablet(s) Oral BID 07/08/19 21 022 Inactive torsemide 20 mg tablet RxNorm: 680693 Take 1 Tablet(s) Oral QD 07/08/19 21 023 Inactive clopidogrel 75 mg tablet RxNorm: 724987 Take 1 Tablet(s) Oral QD 07/08/19 21 021 Inactive Blood Glucose Test strips RxNorm: Use 1 Test Strip QID at PRN 07/08/19 21 Inactive E11.42 Novolog Flexpen U-100 Insulin aspart 100 unit/mL (3 mL) subcutaneous RxNorm: 7024957 Administer per sliding scale Milliliter(s) Subcutaneous TID 151-200: 10 u; 201-250: 20 u; 251-300: 30 u; 301-350: 40 u; 351-400: 50 u. 07/08/19 21 022 Inactive lisinopril 5 mg tablet RxNorm: 054708 Take 1 Tablet(s) Oral QD 07/08/19 021 Inactive Novolog Flexpen U-100 Insulin aspart 100 unit/mL (3 mL) subcutaneous RxNorm: 1491534 Inject 85 Unit(s) Subcutaneous TID 07/08/19 21 022 Inactive metoprolol succinate ER 200 mg tablet,extended release 24 hr RxNorm: 729035 Take 1 Tablet(s) Oral QD 07/08/19 21 021 Inactive Vitamin D3 25 mcg (1,000 unit) tablet RxNorm: 745748 Take 1 Tablet(s) Oral QD 07/08/19 21 021 Inactive isosorbide dinitrate 30 mg tablet RxNorm: 046752 Take 1 Tablet(s) Oral QD 07/08/19 21 021 Inactive Levemir FlexTouch U-100 Insulin 100 unit/mL (3 mL) subcutaneous pen RxNorm: 721039 Inject 140 Unit(s) Subcutaneous BID 07/08/19 21 021 Inactive venlafaxine 75 mg tablet RxNorm: 811081 Take 1 Tablet(s) Oral QD 07/08/19 21 Inactive acetaminophen 500 mg tablet RxNorm: 216957 Take 1 Tablet(s) Oral TID as needed for headache 06/18/19 21 Inactive acetaminophen 500 mg tablet RxNorm: 218017 Take 1 Tablet(s) Oral TID as needed for headache 06/18/19 21 021 Inactive Lyrica 100 mg capsule RxNorm: 602638 Take 1 Capsule(s) Oral QHS every night at bedtime 06/11/19 21 021 Inactive Lyrica 50 mg capsule RxNorm: 521276 Take 1 Capsule(s) Oral QAM every morning 06/10/19 21 021 Inactive hydrocortisone 2.5 % topical cream RxNorm: 104081 Apply to bilateral groin creases Topical BID 05/15/20 20 021 Inactive clotrimazole 1 % topical cream RxNorm: 223034 Apply to bilateral groin areas Topical BID 05/15/20 20 021 Inactive Lyrica 50 mg capsule RxNorm: 390768 Take 1 Capsule(s) Oral QAM every morning 05/14/20 20 020 Inactive Lyrica 100 mg capsule RxNorm: 400486 Take 1 Capsule(s) Oral QHS every night [...] Inactive Nystop 100,000 unit/gram topical powder RxNorm: 306346 Apply to abd folds, under breasts and L side of groin Topical BID x 14 days, then BID PRN 04/08/20 20 Inactive dx: yeast dermatitis Lyrica 100 mg capsule RxNorm: 545486 Take 1 Capsule(s) Oral QHS every night at bedtime 03/13/20 20 Inactive Lyrica 50 mg capsule RxNorm: 710866 Take 1 Capsule(s) Oral QAM every morning 03/13/20 Inactive ketoconazole 2 % shampoo RxNorm: 109712 Apply Topical two times a week with showers 03/11/20 20 Inactive cholecalciferol (vitamin D3) 50 mcg (2,000 unit) tablet RxNorm: 680260 Take 1 Tablet(s) Oral QD 03/11/20 20 Inactive Zetia 10 mg tablet RxNorm: 954219 Take 1 Tablet(s) Oral QD 03/07/20 20 Inactive Zetia 10 mg tablet RxNorm: 644888 Take 1 Tablet(s) Oral QD 03/07/20 20 Inactive Lyrica 50 mg capsule RxNorm: 659723 Take 1 Capsule(s) Oral QAM every morning 02/15/20 20 Inactive Lyrica 100 mg capsule RxNorm: 806253 Take 1 Capsule(s) Oral QHS every night at bedtime 02/15/20 Inactive Lyrica 100 mg capsule RxNorm: 300606 Take 1 Capsule(s) Oral QHS every night at bedtime 02/15/20 20 Inactive Lyrica 50 mg capsule RxNorm: 562881 Take 1 Capsule(s) Oral QAM every morning 02/15/20 20 Inactive venlafaxine ER 75 mg capsule,extended release 24 hr RxNorm: 709241 Take 3 Capsule(s) Oral QD 06/12/2021 Activepolyethylene glycol 3350 17 gram/dose oral powderRxNorm: 255038Ditl 17=1 capful Gram(s) Oral BID as needed mix with 4-8oz of vdljpz6106/12/2021ctive Levemir FlexTouch U-100 Insulin 100 unit/mL (3 mL) subcutaneous penRxNorm: 656785Mjuhqr 80 Unit(s) Subcutaneous BID07/14//Inactiveloperamide 2 mg capsuleRxNorm: 730837Afxt 1 Capsule(s) Oral QID as hkamrc5506/12/2021ctive Novolog Flexpen U-100 Insulin aspart 100 unit/mL (3 mL) subcutaneousRxNorm: 5357760Zqrupv 30 Unit(s) Subcutaneous TID with meals/Inactive Medication [...] Codes Status Date Referral: [facility] WPtel: [phone] [id number] USReferralRecords Orztqjtg93/08/2023Referral: [facility] WPtel: [address] [id number] LZQlrmcwswZgyxiffnr37/12/2022Referral: General CardiologyReferralCompleted 1Referral: General PsychologistReferralClosed Instructions Comment Date Leonid is a Male being seen living at [facility]. Initial [facility]PS visit 01/2020. PMHx including DMII, CAD w/ 5 stents, Depression, Seizure Disorder and CKD stage 3. He moved into [facility] in 12/2019 but after a hospitalization 05/2021 he moved to the [facility] to have closer nursing attention. Sister Jyotsna involved in his care cell# [phone] Guardian: Don (tapan met in person 09/01/21), now has Lexii (same group as don)Lab Schedule: * 10/06/2022
--- OUTSIDE RECORDS SUMMARY | 2022-11-09 23:23 | XMS_ITS | CCD ---
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 [employer] Name Role Phone Tapan Shirley PA-C Primary Care Provider Unavailabl e Tapan Shirley PA-C Chronic Care Management Unavaila ble Summary Purpose DataExchange Insurance Providers Payer name Policy type / Coverage type Covered libertarian ID Effective Begin Date Effective End Date [place] [id number] [place] [id number] Unknown Unknown Family history Runs in the family Diagnosis Age At Onset No Known Diseases N/A Social History Social History Element Codes Description Effec tive Dates Living arrangements Unknown Senior Living 09/03/[address]: 5553299 Non-Smoker / No History of Smoking 09/02/[address]: 848196628 No Alcohol Consum ption 09/02/2020 Allergies, Adverse Reactions, Alerts Substance Reaction Codes Entered Date Inactivated Date Status LISINOPRIL RxNorm: 7368927No Inactive DateActiveMetformin VHqFqoyeba60/28/2020No Inactive DateActive Problems Condition Codes Effective Dates [...] insulinICD-10: E11.42 ICD-9: 250.6003/ctiveCoronary artery disease involving [place] coronary artery of [place] heart, angina presence unspecifiedICD-10: I25.10 ICD-9: 414.0102/ctiveDVT (deep venous thrombosis)ICD-10: I82.409 ICD-9: 453.4002/ctiveSeizure disorderICD-10: G40.909 ICD-9: 345.9002/ctiveEncounter for immunizationICD-10: Z23 ICD-9: V03.8902/ctiveCandidiasis, intertrigoICD-10: B37.2 ICD-9: 112.301/ctiveHistory of anemia due to CKDICD-10: N18.9 ICD-9: 585.901/ctiveStage 2 chronic kidney diseaseICD-10: N18.2 ICD-9: 585.201ctiveDepressionICD-10: F32.9 ICD-9: 32960ctiveLearning disabilityICD-10: F81.9 ICD-9: 315.212ctiveSkin tagICD-10: L91.8 ICD-9: 701.911/ctiveVitamin D deficiencyICD-10: E55.9 ICD-9: 268.91/ctiveCellulitisICD-10: L03.90 ICD-9: 682.910/ctiveCallus of heelICD-10: L84 ICD-9: 06528/ctiveImpacted cerumen, left earICD-10: H61.22 ICD-9: 380.408/ctiveInappropriate sexual [...] Z20.828 ICD-9: V01.7902esolvedHyperhidrosis of palmsICD-10: L74.512 ICD-9: 705.5927ZbomnoEhykaussFjpnlzh70/28/2020ActiveDiabetes mellitus Type 6Mqchxvv62/28/2020ActiveAnemia in chronic kidney diseaseICD-10: D63.1 02/12/2020ResolvedHyperlipidemia, unspecifiedICD-10: E78.509Resolved Medications Medication Codes Instructions Start Date Stop Date Status Fill Instructions benzoyl peroxide 10 % topical cleanser RxNorm: 955311 Apply 1 Application Topical QD apply to face, wash rinse and dry once daily (may change to QOD if drying) 08/19/19 22 022 Inactive (%covered by insurance) #60ml refill 11 dx: acne benzoyl peroxide 10 % topical cleanser RxNorm: 189811 Apply 1 Application Topical QD apply to face, wash rinse and dry once daily (may change to QOD if drying) 08/19/19 22 022 Inactive (%covered by insurance) #60ml refill 11 dx: acne benzoyl peroxide 10 % topical cleanser RxNorm: 789220 Apply 1 Application Topical QD apply to face, wash rinse and dry once daily (may change to QOD if drying) 08/19/19 22 022 Inactive (%covered by insurance) #60ml refill 11 dx: acne Lyrica 50 mg capsule RxNorm: 325095 Take 1 Capsule(s) Oral QAM every morning Take 1 capsule by mouth once daily 08/19/19 22 022 Inactive benzoyl peroxide 10 % topical cleanser RxNorm: 504186 Apply 1 Application Topical QD apply to face, wash rinse and dry once daily (may change to QOD if drying) 08/19/19 22 022 Inactive (%covered by insurance) #60ml refill 11 dx: acne Lyrica 100 mg capsule RxNorm: 387620 Take 1 Capsule(s) Oral QHS every night at bedtime Take 1 capsule by mouth once daily at bedtime 08/19/19 022 Inactive Lyrica 100 mg capsule RxNorm: 325836 Take 1 Capsule(s) Oral QHS every night at bedtime Take 1 capsule by mouth once daily at bedtime 08/16/19 Inactive Lyrica 50 mg capsule RxNorm: 550000 Take 1 Capsule(s) Oral QAM every morning Take 1 capsule by mouth once daily 08/16/19 Inactive Levemir FlexTouch U-100 Insulin 100 unit/mL (3 mL) subcutaneous pen RxNorm: 067358 Inject 86 Unit(s) Subcutaneous BID 08/05/19 22 Inactive d/c 83units BID Lyrica 100 mg capsule RxNorm: 187266 Take 1 Capsule(s) Oral QHS every night at bedtime Take 1 capsule by mouth once daily at bedtime 07/14/19 22 022 Inactive Lyrica 50 mg capsule RxNorm: 093240 Take 1 Capsule(s) Oral QAM every morning Take 1 capsule by mouth once daily 07/14/19 Inactive Levemir FlexTouch U-100 Insulin 100 unit/mL (3 mL) subcutaneous pen RxNorm: 199908 Inject 83 Unit(s) Subcutaneous BID 07/08/19 22 [...] test strip hydralazine 50 mg tablet RxNorm: 428959 Take 1 Tablet(s) Oral QID 05/05/20 21 022 Inactive isosorbide mononitrate ER 30 mg tablet,extended release 24 hr RxNorm: 046702 Take 1 Tablet(s) Oral QD 05/05/20 No Stop Date Active venlafaxine ER 225 mg tablet,extended release 24 hr RxNorm: 539404 Take 1 Tablet(s) Oral QD 05/05/20 21 Inactive venlafaxine ER 225 mg tablet,extended release 24 hr RxNorm: 081066 Take 1 Tablet(s) Oral QD 05/05/20 022 Inactive hydralazine 50 mg tablet RxNorm: 504523 Take 1 Tablet(s) Oral QID 05/05/20 Inactive aspirin 81 mg tablet,delayed release RxNorm: 160843 Take 1 Tablet(s) Oral QD 03/31/20 Inactive Vitamin D2 1,250 mcg (50,000 unit) capsule RxNorm: 8884364 Take 1 Capsule(s) Oral QW once a week x 12 weeks 03/31/20 Inactive Zetia 10 mg tablet RxNorm: 832130 Take 1 Tablet(s) Oral QD 03/31/20 Inactive Vitamin D2 1,250 mcg (50,000 unit) capsule RxNorm: 6801932 Take 1 Capsule(s) Oral QW once a week 03/31/20 Inactive Zetia 10 mg tablet RxNorm: 077228 Take 1 Tablet(s) Oral QD 03/31/20 Inactive hydralazine 25 mg tablet RxNorm: 566107 Take 1 Tablet(s) Oral QID 03/31/20 Inactive hydralazine 25 mg tablet RxNorm: 653755 Take 1 Tablet(s) Oral QID 03/31/20 Inactive hydralazine 10 mg tablet RxNorm: 135754 Take 1 Tablet(s) Oral QID 03/03/20 Inactive cephalexin 500 mg tablet RxNorm: 311178 Take 1 Tablet(s) Oral QID 02/27/20 021 Inactive cephalexin 500 mg tablet RxNorm: 846750 Take 1 Tablet(s) Oral QID 02/27/20 021 Inactive lisinopril 40 mg tablet RxNorm: 147628 Take 1 Tablet(s) Oral QD 02/11/20 023 Inactive Eliquis 5 mg tablet RxNorm: 7841220 Take 1 Tablet(s) Oral BID 01/05/20 21 022 Inactive Eliquis 5 mg tablet RxNorm: 9415402 Take 2 Tablet(s) Oral QD 01/01/20 21 021 Inactive Lyrica 50 mg capsule RxNorm: 935676 Take 1 Capsule(s) Oral QAM every morning 12/24/19 021 Inactive Lyrica 100 mg capsule RxNorm: 593530 Take 1 Capsule(s) Oral QHS every night at bedtime 12/24/19 021 Inactive clotrimazole 1 % topical cream RxNorm: 824435 Apply to right foot and toes Topical BID 12/04/19 21 023 Inactive metoprolol succinate ER 200 mg tablet,extended release 24 hr RxNorm: 125088 Take 1 Tablet(s) Oral QD 12/04/19 023 Inactive ciprofloxacin 500 mg tablet RxNorm: 050463 Take 1 Tablet(s) Oral QD 11/30/19 021 Inactive DX ofloxacin otic drops Accu-Chek Guide test strips RxNorm: USE 1 TO CHECK GLUCOSE 4 TIMES DAILY AND NEEDED 11/15/19 21 023 Inactive Blood Glucose Test strips RxNorm: Use 1 Test Strip QID at PRN 11/05/19 21 023 Inactive E11.42 lisinopril 30 mg tablet RxNorm: 952450 Take 1 Tablet(s) Oral QD 10/30/19 021 Inactive lisinopril 20 mg tablet RxNorm: 713870 Take 1 Tablet(s) Oral QD 10/23/19 21 021 Inactive lisinopril 20 mg tablet RxNorm: 314597 Take 1 Tablet(s) Oral QD 10/23/19 21 021 Inactive lisinopril 10 mg tablet RxNorm: 032913 Take 1 Tablet(s) Oral QD 10/02/19 21 021 Inactive icosapent ethyl 1 gram capsule RxNorm: 4222677 Take 2 Capsule(s) (2 gm) Oral BID with meals 09/12/19 Inactive Okay to dispense one 2gm tab if you have that available. icosapent ethyl 1 gram capsule RxNorm: 7117643 Take 2 Capsule(s) Oral BID 09/12/19 Inactive Okay to dispense one 2gm tab if you have that available. amlodipine 10 mg tablet RxNorm: 331777 Take 1 Tablet(s) Oral QD 09/04/19 Inactive aspirin 81 mg tablet,delayed release RxNorm: 250208 Take 1 Tablet(s) Oral QD 09/04/19 21 Inactive Levemir FlexTouch U-100 Insulin 100 unit/mL (3 mL) subcutaneous pen RxNorm: 760879 Inject 150 Unit(s) Subcutaneous BID 09/04/19 Inactive venlafaxine ER 150 mg tablet,extended release 24 hr RxNorm: 984254 Take 1 Tablet(s) Oral QD 09/04/19 Inactive clotrimazole-betame thasone 1 %-0.05 % topical cream RxNorm: 376146 Apply to rash on red area on left abdomen/chest Topical BID 08/10/19 21 Inactive amlodipine 5 mg tablet RxNorm: 067412 Take 1 Tablet(s) Oral QD 07/31/19 Inactive cephalexin 500 mg tablet RxNorm: 636508 Take 1 Tablet(s) Oral BID BID - Twice Daily 07/31/19 21 021 Inactive Start 08/01/20 pantoprazole 40 mg tablet,delayed release RxNorm: 563076 Take 1 Tablet(s) Oral QAM every morning 07/08/19 022 Inactive senna 8.6 mg tablet RxNorm: 486975 Take 1 Tablet(s) Oral QD 07/08/19 022 Inactive pravastatin 80 mg tablet RxNorm: 110486 Take 1 Tablet(s) Oral QHS every night at bedtime 07/08/19 21 022 Inactive clotrimazole 1 % topical cream RxNorm: 708779 Apply to bilateral groin areas Topical BID 07/08/19 21 Inactive carbamazepine 200 mg tablet RxNorm: 232326 Take 1 Tablet(s) Oral BID 07/08/19 21 022 Inactive torsemide 20 mg tablet RxNorm: 187396 Take 1 Tablet(s) Oral QD 07/08/19 21 023 Inactive clopidogrel 75 mg tablet RxNorm: 286911 Take 1 Tablet(s) Oral QD 07/08/19 21 021 Inactive Blood Glucose Test strips RxNorm: Use 1 Test Strip QID at PRN 07/08/19 21 Inactive E11.42 Novolog Flexpen U-100 Insulin aspart 100 unit/mL (3 mL) subcutaneous RxNorm: 3088645 Administer per sliding scale Milliliter(s) Subcutaneous TID 151-200: 10 u; 201-250: 20 u; 251-300: 30 u; 301-350: 40 u; 351-400: 50 u. 07/08/19 21 022 Inactive lisinopril 5 mg tablet RxNorm: 183773 Take 1 Tablet(s) Oral QD 07/08/19 021 Inactive Novolog Flexpen U-100 Insulin aspart 100 unit/mL (3 mL) subcutaneous RxNorm: 2310540 Inject 85 Unit(s) Subcutaneous TID 07/08/19 21 022 Inactive metoprolol succinate ER 200 mg tablet,extended release 24 hr RxNorm: 447963 Take 1 Tablet(s) Oral QD 07/08/19 21 021 Inactive Vitamin D3 25 mcg (1,000 unit) tablet RxNorm: 293063 Take 1 Tablet(s) Oral QD 07/08/19 21 021 Inactive isosorbide dinitrate 30 mg tablet RxNorm: 581460 Take 1 Tablet(s) Oral QD 07/08/19 21 021 Inactive Levemir FlexTouch U-100 Insulin 100 unit/mL (3 mL) subcutaneous pen RxNorm: 758015 Inject 140 Unit(s) Subcutaneous BID 07/08/19 21 021 Inactive venlafaxine 75 mg tablet RxNorm: 334745 Take 1 Tablet(s) Oral QD 07/08/19 21 Inactive acetaminophen 500 mg tablet RxNorm: 809246 Take 1 Tablet(s) Oral TID as needed for headache 06/18/19 21 Inactive acetaminophen 500 mg tablet RxNorm: 291323 Take 1 Tablet(s) Oral TID as needed for headache 06/18/19 21 021 Inactive Lyrica 100 mg capsule RxNorm: 090888 Take 1 Capsule(s) Oral QHS every night at bedtime 06/11/19 21 021 Inactive Lyrica 50 mg capsule RxNorm: 022515 Take 1 Capsule(s) Oral QAM every morning 06/10/19 21 021 Inactive hydrocortisone 2.5 % topical cream RxNorm: 619878 Apply to bilateral groin creases Topical BID 05/15/20 20 021 Inactive clotrimazole 1 % topical cream RxNorm: 682870 Apply to bilateral groin areas Topical BID 05/15/20 20 021 Inactive Lyrica 50 mg capsule RxNorm: 087067 Take 1 Capsule(s) Oral QAM every morning 05/14/20 20 020 Inactive Lyrica 100 mg capsule RxNorm: 601887 Take 1 Capsule(s) Oral QHS every night [...] Inactive Nystop 100,000 unit/gram topical powder RxNorm: 837710 Apply to abd folds, under breasts and L side of groin Topical BID x 14 days, then BID PRN 04/08/20 20 Inactive dx: yeast dermatitis Lyrica 100 mg capsule RxNorm: 707157 Take 1 Capsule(s) Oral QHS every night at bedtime 03/13/20 20 Inactive Lyrica 50 mg capsule RxNorm: 319766 Take 1 Capsule(s) Oral QAM every morning 03/13/20 Inactive ketoconazole 2 % shampoo RxNorm: 107109 Apply Topical two times a week with showers 03/11/20 20 Inactive cholecalciferol (vitamin D3) 50 mcg (2,000 unit) tablet RxNorm: 306718 Take 1 Tablet(s) Oral QD 03/11/20 20 Inactive Zetia 10 mg tablet RxNorm: 873834 Take 1 Tablet(s) Oral QD 03/07/20 20 Inactive Zetia 10 mg tablet RxNorm: 550554 Take 1 Tablet(s) Oral QD 03/07/20 20 Inactive Lyrica 50 mg capsule RxNorm: 439413 Take 1 Capsule(s) Oral QAM every morning 02/15/20 20 Inactive Lyrica 100 mg capsule RxNorm: 572436 Take 1 Capsule(s) Oral QHS every night at bedtime 02/15/20 Inactive Lyrica 100 mg capsule RxNorm: 793479 Take 1 Capsule(s) Oral QHS every night at bedtime 02/15/20 20 Inactive Lyrica 50 mg capsule RxNorm: 227181 Take 1 Capsule(s) Oral QAM every morning 02/15/20 20 Inactive venlafaxine ER 75 mg capsule,extended release 24 hr RxNorm: 572291 Take 3 Capsule(s) Oral QD 06/12/2021 Activepolyethylene glycol 3350 17 gram/dose oral powderRxNorm: 735508Kvxt 17=1 capful Gram(s) Oral BID as needed mix with 4-8oz of zlgywo5806/12/2021ctive Levemir FlexTouch U-100 Insulin 100 unit/mL (3 mL) subcutaneous penRxNorm: 328726Oavcym 80 Unit(s) Subcutaneous BID07/14//Inactiveloperamide 2 mg capsuleRxNorm: 070773Infj 1 Capsule(s) Oral QID as wtfdpv2106/12/2021ctive Novolog Flexpen U-100 Insulin aspart 100 unit/mL (3 mL) subcutaneousRxNorm: 7129775Tquwnf 30 Unit(s) Subcutaneous TID with meals/Inactive Medication [...] [facility] WPtel: [address] [id number] USReferralRecords Fhuutydi95/08/2023Referral: [facility] WPtel: [address] [id number] XYFokmcnjjHpnzdpmvl66/12/2022Referral: General CardiologyReferralCompleted 1Referral: General PsychologistReferralClosed Instructions Comment Date Leonid is a Male being seen living at [facility]. Initial [facility] visit 01/2020. PMHx including DMII, CAD w/ 5 stents, Depression, Seizure Disorder and CKD stage 3. He moved into [facility] in 12/2019 but after a hospitalization 05/2021 he moved to the [facility] to have closer nursing attention. Sister Jyotsna involved in his care cell# [phone] Guardian: Don (tapan met in person 09/01/21), now has Lexii (same group as don)Lab Schedule: * 10/06/2022
--- OUTSIDE RECORDS SUMMARY | 2022-11-09 23:23 | XMS_ITS | CCD ---
Author Name Tapan Shirley PA-C Address [address] [place] [address] Phone Organization [facility] Phone Care Team Providers Care Comfort Filler Name Role Phone Tapan Shirley PA-C Primary Care Provider Unavailabl e Tapan Shirley PA-C Chronic Care Management Unavaila ble Summary Purpose DataExchange Insurance Providers Payer name Policy type / Coverage type Covered green party ID Effective Begin Date Effective End Date [place] [id number] Unknown Unknown Medicaid [place] [id number] Unknown Unknown Family history Runs in the family Diagnosis Age At Onset No Known Diseases N/A Social History Social History Element Codes Description Effec tive Dates Living arrangements Unknown [facility]itentiary 09/03/[address]: 1513311 Non-Smoker / No History of Smoking 09/02/[address]: 210869596 No Alcohol Consum ption 09/02/2020 Allergies, Adverse Reactions, Alerts Substance Reaction Codes Entered Date Inactivated Date Status LISINOPRIL RxNorm: 7388919No Inactive DateActiveMetformin WPtJfofusm93No Inactive DateActive Problems Condition Codes Effective Dates Condition St atus Amputated toe of right foot ICD-10: S98. 131A ICD-9: 895.004/ctiveHyperlipidemia associated with type 2 diabetes mellitusICD-10: E11.69 ICD-9: 250.8004/2ActiveHypertension associated with diabetesICD-10: E11.59 ICD-9: 250.8004/2ActiveLong term (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 insulinICD-10: Z79.4 04ctiveLower extremity edemaICD-10: R60.0 ICD-9: 782.304/18/2022ActiveOnychogryposisICD-10: L60.2 ICD-9: 703.804/ctiveSeizure disorderICD-10: G40.909 ICD-9: 345.9004/2ActiveStage 2 chronic 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ICD-10: E11.22 ICD-9: 250.4004/ctiveType 2 diabetes mellitus with diabetic polyneuropathy, with long-term current use of insulinICD-10: E11.42 ICD-9: 250.6004/ctiveMuscular painICD-10: M79.10 ICD-9: 729.103/ctivePain of right heelICD-10: M79.671 ICD-9: 729.503/ctiveCoronary artery disease involving seminole coronary artery of seminole heart, angina presence unspecifiedICD-10: I25.10 ICD-9: 414.01007/08/2021ctiveDVT (deep venous thrombosis)ICD-10: I82.409 ICD-9: 453.4002/ctiveEncounter for immunizationICD-10: Z23 ICD-9: V03.8902/ctiveCandidiasis, intertrigoICD-10: B37.2 ICD-9: 112.301/ctiveHistory of anemia due to CKDICD-10: N18.9 ICD-9: 585.9012ActiveStage 2 chronic kidney diseaseICD-10: N18.2 ICD-9: 585.2012ActiveDepressionICD-10: F32.9 ICD-9: 29453/1ActiveLearning disabilityICD-10: F81.9 ICD-9: 315.212/1ActiveSkin tagICD-10: L91.8 ICD-9: 701.911/1ActiveVitamin D deficiencyICD-10: E55.9 ICD-9: 268.911/ctiveCellulitisICD-10: L03.90 ICD-9: 682.910/ctiveCallus of heelICD-10: L84 ICD-9: 02462/ctiveImpacted cerumen, left earICD-10: H61.22 ICD-9: 380.408/ctiveInappropriate sexual [...] 285.21010/01/2020esolvedGout due to renal impairmentICD-10: M10.30 ICD-9: 274.10009/03/2020ctiveChronic kidney disease, stage 3 unspecifiedICD-10: N18.30009/03/2020esolvedDandruff in adultICD-10: L21.0 ICD-9: 690.18007/08/2020ctiveContact with and (suspected) exposure to other viral communicable diseasesICD-10: Z20.828 ICD-9: V01.7902esolvedHyperhidrosis of palmsICD-10: L74.512 ICD-9: 705.2574TxatrrTptfjxruVjxrmud15/28/2020ActiveDiabetes mellitus Type 3Dyreglt81/28/2020ActiveAnemia in chronic kidney diseaseICD-10: D63.1 02/12/2020ResolvedHyperlipidemia, unspecifiedICD-10: E78.Resolved Medications Medication Codes Instructions Start Date Stop Date Status Fill Instructions benzoyl peroxide 10 % topical cleanser RxNorm: 901591 Apply 1 Application Topical QD apply to face, wash rinse and dry once daily (may change to QOD if drying) 08/19/19 22 022 Inactive (%covered by insurance) #60ml refill 11 dx: acne benzoyl peroxide 10 % topical cleanser RxNorm: 500146 Apply 1 Application Topical QD apply to face, wash rinse and dry once daily (may change to QOD if drying) 08/19/19 22 022 Inactive (%covered by insurance) #60ml refill 11 dx: acne benzoyl peroxide 10 % topical cleanser RxNorm: 451019 Apply 1 Application Topical QD apply to face, wash rinse and dry once daily (may change to QOD if drying) 08/19/19 22 022 Inactive (%covered by insurance) #60ml refill 11 dx: acne Lyrica 100 mg capsule RxNorm: 848434 Take 1 Capsule(s) Oral QHS every night at bedtime Take 1 capsule by mouth once daily at bedtime 08/19/19 22 022 Inactive Lyrica 50 mg capsule RxNorm: 004812 Take 1 Capsule(s) Oral QAM every morning Take 1 capsule by mouth once daily 08/19/19 22 022 Inactive benzoyl peroxide 10 % topical cleanser RxNorm: 694041 Apply 1 Application Topical QD apply to face, wash rinse and dry once daily (may change to QOD if drying) 08/19/19 22 022 Inactive (%covered by insurance) #60ml refill 11 dx: acne Lyrica 100 mg capsule RxNorm: 137171 Take 1 Capsule(s) Oral QHS every night at bedtime Take 1 capsule by mouth once daily at bedtime 08/16/19 22 022 Inactive Lyrica 50 mg capsule RxNorm: 657747 Take 1 Capsule(s) Oral QAM every morning Take 1 capsule by mouth once daily 08/16/19 22 022 Inactive Levemir FlexTouch U-100 Insulin 100 unit/mL (3 mL) subcutaneous pen RxNorm: 788889 Inject 86 Unit(s) Subcutaneous BID 08/05/19 22 022 Inactive d/c 83units BID Lyrica 100 mg capsule RxNorm: 418795 Take 1 Capsule(s) Oral QHS every night at bedtime Take 1 capsule by mouth once daily at bedtime 07/14/19 22 Inactive Lyrica 50 mg capsule RxNorm: 102033 Take 1 Capsule(s) Oral QAM every morning Take 1 capsule by mouth once daily 07/14/19 22 022 Inactive Levemir FlexTouch U-100 Insulin 100 unit/mL (3 mL) subcutaneous pen RxNorm: 582998 Inject 83 Unit(s) Subcutaneous BID 07/08/19 22 [...] to administer insulin 5 times a day Dx:06/05/19 022 Inactive ok to substitute with [...] test strip hydralazine 50 mg tablet RxNorm: 693967 Take 1 Tablet(s) Oral QID 05/05/20 Inactive isosorbide mononitrate ER 30 mg tablet,extended release 24 hr RxNorm: 074573 Take 1 Tablet(s) Oral QD 05/05/20 No Stop Date Active venlafaxine ER 225 mg tablet,extended release 24 hr RxNorm: 451423 Take 1 Tablet(s) Oral QD 05/05/20 Inactive venlafaxine ER 225 mg tablet,extended release 24 hr RxNorm: 399987 Take 1 Tablet(s) Oral QD 05/05/20 022 Inactive hydralazine 50 mg tablet RxNorm: 862543 Take 1 Tablet(s) Oral QID 05/05/20 Inactive aspirin 81 mg tablet,delayed release RxNorm: 124026 Take 1 Tablet(s) Oral QD 03/31/20 Inactive Vitamin D2 1,250 mcg (50,000 unit) capsule RxNorm: 1118648 Take 1 Capsule(s) Oral QW once a week x 12 weeks 03/31/20 022 Inactive Zetia 10 mg tablet RxNorm: 795894 Take 1 Tablet(s) Oral QD 03/31/20 022 Inactive Vitamin D2 1,250 mcg (50,000 unit) capsule RxNorm: 1122957 Take 1 Capsule(s) Oral QW once a week 03/31/20 Inactive Zetia 10 mg tablet RxNorm: 276126 Take 1 Tablet(s) Oral QD 03/31/20 Inactive hydralazine 25 mg tablet RxNorm: 933769 Take 1 Tablet(s) Oral QID 03/31/20 021 Inactive hydralazine 25 mg tablet RxNorm: 760212 Take 1 Tablet(s) Oral QID 03/31/20 021 Inactive hydralazine 10 mg tablet RxNorm: 510045 Take 1 Tablet(s) Oral QID 03/03/20 021 Inactive cephalexin 500 mg tablet RxNorm: 083358 Take 1 Tablet(s) Oral QID 02/27/20 021 Inactive cephalexin 500 mg tablet RxNorm: 581833 Take 1 Tablet(s) Oral QID 02/27/20 021 Inactive lisinopril 40 mg tablet RxNorm: 437849 Take 1 Tablet(s) Oral QD 02/11/20 023 Inactive Eliquis 5 mg tablet RxNorm: 2525022 Take 1 Tablet(s) Oral BID 01/05/20 022 Inactive Eliquis 5 mg tablet RxNorm: 6314421 Take 2 Tablet(s) Oral QD 01/01/20 21 021 Inactive Lyrica 50 mg capsule RxNorm: 640189 Take 1 Capsule(s) Oral QAM every morning 12/24/19 021 Inactive Lyrica 100 mg capsule RxNorm: 558451 Take 1 Capsule(s) Oral QHS every night at bedtime 12/24/19 021 Inactive clotrimazole 1 % topical cream RxNorm: 674037 Apply to right foot and toes Topical BID 12/04/19 21 023 Inactive metoprolol succinate ER 200 mg tablet,extended release 24 hr RxNorm: 071552 Take 1 Tablet(s) Oral QD 12/04/19 023 Inactive ciprofloxacin 500 mg tablet RxNorm: 864457 Take 1 Tablet(s) Oral QD 11/30/19 021 Inactive DX ofloxacin otic drops Accu-Chek Guide test strips RxNorm: USE 1 TO CHECK GLUCOSE 4 TIMES DAILY AND NEEDED 11/15/19 21 023 Inactive Blood Glucose Test strips RxNorm: Use 1 Test Strip QID at PRN 11/05/19 21 023 Inactive E11.42 lisinopril 30 mg tablet RxNorm: 716251 Take 1 Tablet(s) Oral QD 10/30/19 021 Inactive lisinopril 20 mg tablet RxNorm: 957891 Take 1 Tablet(s) Oral QD 10/23/19 21 Inactive lisinopril 20 mg tablet RxNorm: 205189 Take 1 Tablet(s) Oral QD 10/23/19 21 021 Inactive lisinopril 10 mg tablet RxNorm: 793678 Take 1 Tablet(s) Oral QD 10/02/19 021 Inactive icosapent ethyl 1 gram capsule RxNorm: 4864080 Take 2 Capsule(s) (2 gm) Oral BID with meals 09/12/19 022 Inactive Okay to dispense one 2gm tab if you have that available. icosapent ethyl 1 gram capsule RxNorm: 5345886 Take 2 Capsule(s) Oral BID 09/12/19 021 Inactive Okay to dispense one 2gm tab if you have that available. amlodipine 10 mg tablet RxNorm: 574858 Take 1 Tablet(s) Oral QD 09/04/19 022 Inactive aspirin 81 mg tablet,delayed release RxNorm: 449741 Take 1 Tablet(s) Oral QD 09/04/19 Inactive Levemir FlexTouch U-100 Insulin 100 unit/mL (3 mL) subcutaneous pen RxNorm: 043932 Inject 150 Unit(s) Subcutaneous BID 09/04/19 022 Inactive venlafaxine ER 150 mg tablet,extended release 24 hr RxNorm: 003489 Take 1 Tablet(s) Oral QD 09/04/19 021 Inactive clotrimazole-betame thasone 1 %-0.05 % topical cream RxNorm: 388655 Apply to rash on red area on left abdomen/chest Topical BID 08/10/19 21 021 Inactive amlodipine 5 mg tablet RxNorm: 395277 Take 1 Tablet(s) Oral QD 07/31/19 21 021 Inactive cephalexin 500 mg tablet RxNorm: 669502 Take 1 Tablet(s) Oral BID BID - Twice Daily 07/31/19 21 021 Inactive Start 08/01/20 pantoprazole 40 mg tablet,delayed release RxNorm: 174190 Take 1 Tablet(s) Oral QAM every morning 07/08/19 Inactive senna 8.6 mg tablet RxNorm: 599998 Take 1 Tablet(s) Oral QD 07/08/19 022 Inactive pravastatin 80 mg tablet RxNorm: 854815 Take 1 Tablet(s) Oral QHS every night at bedtime 07/08/19 Inactive clotrimazole 1 % topical cream RxNorm: 443275 Apply to bilateral groin areas Topical BID 07/08/19 Inactive carbamazepine 200 mg tablet RxNorm: 235856 Take 1 Tablet(s) Oral BID 07/08/19 Inactive torsemide 20 mg tablet RxNorm: 016654 Take 1 Tablet(s) Oral QD 07/08/19 023 Inactive clopidogrel 75 mg tablet RxNorm: 304236 Take 1 Tablet(s) Oral QD 07/08/19 021 Inactive Blood Glucose Test strips RxNorm: Use 1 Test Strip QID at PRN 07/08/19 Inactive E11.42 Novolog Flexpen U-100 Insulin aspart 100 unit/mL (3 mL) subcutaneous RxNorm: 6280250 Administer per sliding scale Milliliter(s) Subcutaneous TID 151-200: 10 u; 201-250: 20 u; 251-300: 30 u; 301-350: 40 u; 351-400: 50 u. 07/08/19 022 Inactive lisinopril 5 mg tablet RxNorm: 825525 Take 1 Tablet(s) Oral QD 07/08/19 Inactive Novolog Flexpen U-100 Insulin aspart 100 unit/mL (3 mL) subcutaneous RxNorm: 0544193 Inject 85 Unit(s) Subcutaneous TID 07/08/19 Inactive metoprolol succinate ER 200 mg tablet,extended release 24 hr RxNorm: 932963 Take 1 Tablet(s) Oral QD 07/08/19 Inactive Vitamin D3 25 mcg (1,000 unit) tablet RxNorm: 238211 Take 1 Tablet(s) Oral QD 07/08/19 Inactive isosorbide dinitrate 30 mg tablet RxNorm: 347350 Take 1 Tablet(s) Oral QD 07/08/19 Inactive Levemir FlexTouch U-100 Insulin 100 unit/mL (3 mL) subcutaneous pen RxNorm: 079298 Inject 140 Unit(s) Subcutaneous BID 07/08/19 Inactive venlafaxine 75 mg tablet RxNorm: 505891 Take 1 Tablet(s) Oral QD 07/08/19 Inactive acetaminophen 500 mg tablet RxNorm: 415501 Take 1 Tablet(s) Oral TID as needed for headache 06/18/19 Inactive acetaminophen 500 mg tablet RxNorm: 362238 Take 1 Tablet(s) Oral TID as needed for headache 06/18/19 Inactive Lyrica 100 mg capsule RxNorm: 373763 Take 1 Capsule(s) Oral QHS every night at bedtime 06/11/19 021 Inactive Lyrica 50 mg capsule RxNorm: 164613 Take 1 Capsule(s) Oral QAM every morning 06/10/19 021 Inactive hydrocortisone 2.5 % topical cream RxNorm: 251825 Apply to bilateral groin creases Topical BID 05/15/20 20 021 Inactive clotrimazole 1 % topical cream RxNorm: 633740 Apply to bilateral groin areas Topical BID 05/15/20 20 021 Inactive Lyrica 50 mg capsule RxNorm: 595229 Take 1 Capsule(s) Oral QAM every morning 05/14/20 20 Inactive Lyrica 100 mg capsule RxNorm: 968715 Take 1 Capsule(s) Oral QHS every night [...] Inactive Nystop 100,000 unit/gram topical powder RxNorm: 942615 Apply to abd folds, under breasts and L side of groin Topical BID x 14 days, then BID PRN 04/08/20 20 021 Inactive dx: yeast dermatitis Lyrica 100 mg capsule RxNorm: 245365 Take 1 Capsule(s) Oral QHS every night at bedtime 03/13/20 20 Inactive Lyrica 50 mg capsule RxNorm: 099345 Take 1 Capsule(s) Oral QAM every morning 03/13/20 20 Inactive ketoconazole 2 % shampoo RxNorm: 658560 Apply Topical two times a week with showers 03/11/20 20 Inactive cholecalciferol (vitamin D3) 50 mcg (2,000 unit) tablet RxNorm: 648171 Take 1 Tablet(s) Oral QD 03/11/20 20 021 Inactive Zetia 10 mg tablet RxNorm: 538817 Take 1 Tablet(s) Oral QD 03/07/20 20 021 Inactive Zetia 10 mg tablet RxNorm: 547272 Take 1 Tablet(s) Oral QD 03/07/20 20 Inactive Lyrica 50 mg capsule RxNorm: 367548 Take 1 Capsule(s) Oral QAM every morning 02/15/20 20 Inactive Lyrica 100 mg capsule RxNorm: 463597 Take 1 Capsule(s) Oral QHS every night at bedtime 02/15/20 20 Inactive Lyrica 100 mg capsule RxNorm: 155698 Take 1 Capsule(s) Oral QHS every night at bedtime 02/15/20 Inactive Lyrica 50 mg capsule RxNorm: 818046 Take 1 Capsule(s) Oral QAM every morning 02/15/20 20 Inactive venlafaxine ER 75 mg capsule,extended release 24 hr RxNorm: 412401 Take 3 Capsule(s) Oral QD 06/12/2021 Activepolyethylene glycol 3350 17 gram/dose oral powderRxNorm: 693297Lseh 17=1 capful Gram(s) Oral BID as needed mix with 4-8oz of dkesna2706/12/2021ctive Levemir FlexTouch U-100 Insulin 100 unit/mL (3 mL) subcutaneous penRxNorm: 666128Wpqzuo 80 Unit(s) Subcutaneous BID07/14//Inactiveloperamide 2 mg capsuleRxNorm: 928470Sfka 1 Capsule(s) Oral QID as ekhctw5706/12/2021ctive Novolog Flexpen U-100 Insulin aspart 100 unit/mL (3 mL) subcutaneousRxNorm: 6195321Trrunz 30 Unit(s) Subcutaneous TID with meals/Inactive Medication [...] Observation Code Item Item Code Result Date Service Location Basic Metabolic Panel (BMP) BMP Blood Urea Nitrogen (BUN) 26 mg/dL 09/20/19 Unknown Basic Metabolic Panel (BMP) BMP BUN/CREATININE RATIO 25.88 ratio 09/20/19 22 Unknown Basic Metabolic Panel (BMP) BMP Calcium (Ca) 50740-7 8.6 mg/dL 09/20/19 22 Unknown Basic Metabolic Panel (BMP) BMP Carbon Dioxide (ECO2) 26 mEq/L 09/20/19 22 Unknown Basic Metabolic Panel (BMP) BMP Chloride (Cl) 2075-0 106 mmol/L 09/20/19 22 Unknown Basic Metabolic Panel (BMP) BMP Creatinine 2160-0 1.02 mg/dL 09/20/19 22 Unknown Basic Metabolic Panel (BMP) BMP eGFR 79.00 mL/min/1.7 3m2 09/20/19 22 Unknown Basic Metabolic Panel (BMP) BMP eGFR 85549-1 95.00 mL/min/1.7 3m2 09/20/19 22 Unknown Basic Metabolic Panel (BMP) BMP Glucose 193 mg/dL 09/20/19 22 Unknown Basic Metabolic Panel (BMP) BMP Potassium (K) 2823-3 4.4 mmol/L 09/20/19 22 Unknown Basic Metabolic Panel (BMP) BMP Sodium (Na) 2951-2 143 mmol/L 09/20/19 22 Unknown Hemoglobin A1c HEMOGLOBA Hemoglobin A1c 49854-4 9.1 %A1c 09/20/19 22 Unknown Lipid Panel (LP) LIPIDPAN CHOLESTEROL, TOTAL 28380-8 112 mg/dL 09/20/19 22 Unknown Lipid Panel (LP) LIPIDPAN HDL CHOLESTEROL 2085-9 26.8 mg /dL 09/20/19 22 Unknown Lipid Panel (LP) LIPIDPAN LDL CHOLESTEROL CALCULATED 14793-1 35 ppm 09/20/19 22 Unknown Lipid Panel (LP) LIPIDPAN TRIGLYCERIDES 2571-8 250.7 mg/dL 09/20/19 22 Unknown Lipid Panel (LP) LIPIDPAN VLDL Cholestero l Calculated 50 ppm 09/20/19 22 Unknown CBC with Differential / Platelets CBCDIFF Baso (Absolute) 0.04 x10E3/uL 09/20/19 22 Unknown CBC with Differential / Platelets CBCDIFF Basos 0.80 % 09/20/19 22 Unknown CBC with Differential / Platelets CBCDIFF Eos 2.8 % 09/20/19 22 Unknown CBC with Differential / Platelets CBCDIFF Eos (Absolute) 0.14 x10E3/uL 09/20/19 22 Unknown CBC with Differential / Platelets CBCDIFF Hematocrit 4544-3 38.1 % 09/20/19 22 Unknown CBC with Differential / Platelets CBCDIFF Hemoglobin 718-7 12.2 g/dL 09/20/19 22 Unknown CBC with Differential / Platelets CBCDIFF LYMPHOCYTES 41.3 % 09/20/19 22 Unknown CBC with Differential / Platelets CBCDIFF Lymphocytes (Absolute) 2.04 x10E3/uL 09/20/19 22 Unknown CBC with Differential / Platelets CBCDIFF MCH 29.0 pg 09/20/19 22 Unknown CBC with Differential / Platelets CBCDIFF MCHC 32.0 g/dL 09/20/19 22 Unknown CBC with Differential / Platelets CBCDIFF MCV 787-2 90.7 % 09/20/19 22 Unknown CBC with Differential / Platelets CBCDIFF Monocytes 6.1 % 09/20/19 22 Unknown CBC with Differential / Platelets CBCDIFF Monocytes (Absolute) 0.30 x10E3/uL 09/20/19 22 Unknown CBC with Differential / Platelets CBCDIFF MPV 45871-0 9.9 fL 09/20/19 22 Unknown CBC with Differential / Platelets CBCDIFF Neutrophils 48.80 % 09/20/19 22 Unknown CBC with Differential / Platelets CBCDIFF Neutrophils (Absolute) 2.41 x10E3/uL 09/20/19 22 Unknown CBC with Differential / Platelets CBCDIFF Platelets 777-3 165 x10E3/uL 09/20/19 22 Unknown CBC with Differential / Platelets CBCDIFF RBC 4.20 x10^6/UL 09/20/19 22 Unknown CBC with Differential / Platelets CBCDIFF RDW 14.4 %binding 09/20/19 22 Unknown CBC with Differential / Platelets CBCDIFF WBC 6690-2 4.94 x10E3/uL 09/20/19 22 Unknown PDFReport PDFReport PDFReport 09/19/19 22 Unknown Procedures Procedure Codes Date SYS BP > OR = 140 CPT-4: G8753 09/01/2021 CUI BP LESS 90 CPT-4: G8754 09/01/2021 DEBRIDE NAIL 6 OR MORE CPT-4: 44330 2 Vital Signs Date Vital 09/01/2021 Blood Pressure 1: 144/70 Code: 8 480-6 Temperature: 37.0 (C) / 98.6 (F) Reason For Visit No Reason For Visit data Encounters Encounter Performer Location Location Address Codes Cristiano e ([id number]) DOMICIL VISIT DEBORAH Benitez Diagnosis: Hyperlipidemia associated with type 2 diabetes mellitus[ICD10: E11.69] Diagnosis: Hypertension associated with diabetes[ICD10: E11.59] Diagnosis: Stage 2 chronic 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[ICD10: E11.22] Diagnosis: Type 2 diabetes mellitus with diabetic polyneuropathy, with long-term current use of insulin[ICD10: E11.42] Diagnosis: long-term (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 insulin[ICD10: Z79.4] Diagnosis: Lower extremity edema[ICD10: R60.0] Diagnosis: Seizure disorder[ICD10: G40.909] Diagnosis: Amputated toe of right foot[ICD10: S98.131A] Diagnosis: Onychogryposis[ICD10: L60.2]Tapan Amanda Daviston on [id number] [place] [address]MYQ-9: [id number]/ Plan of Care Planned Activity Notes Codes Status Date Referral: [facility] W[facility]el: [phone] [id number] USReferralRecords Ksbawbue88/08/2023Care Plan: CARBAMAZEPINE, FREE (TEGRETOL) Qlmuuuc20/19/2022Patient Education: Patient Medication SummaryCompleted 2Patient Education: Influenza BplezyrOkyckklve37/18/2022Referral: [facility] WPtel: [phone] [facility] [address] [id number] RCAsoiecfdTmployscp15/12/2022Referral: General CardiologyReferralCompleted 1Referral: General PsychologistReferralClosed Instructions Comment Date Leonid is a Male being seen living at [facility]. Initial BPS visit 01/2020. PMHx including DMII, CAD w/ 5 stents, Depression, Seizure Disorder and CKD stage 3. He moved into [facility] in 12/2019 but after a hospitalization 05/2021 he moved to the [facility] to have closer nursing attention. Sister Jyotsna involved in his care cell# [phone] Guardian: Don (tapan met in person 09/01/21), now has Lexii (same group as don)Lab Schedule: * 10/06/2022 Epilepsy Checking tegretol level today continuous churn buttermaker (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 insulin 2/2 DM2 Amputated toe of right foot amputated 2/2 infection Diabetes Had endo appt 08/19/21, defer recommendations to them at this time. Msg sent to nursing inquiring what changes were made and to make sure patient did in fact attend appt. Ordering a1c today.?? Edema Encourage daily use (on in the morning, off at night) of compression stockings. elevation of feet, increase activity as tolerated, and avoid added sodium.??Monitor for open skin sores. Checking BMP today to monitor electrolytes and kidney function.?? Onychogryposis (*8*) toenails debrided today, (*4*) on left foot, (*4*) on right foot. Medical grade nail clippersand electric dremel used to significantly reduce length & thickness. Anti-fungal treatment options reviewed, discussion deferred as treatment not appropriate or beneficial to patient. Patient tolerated procedure well. .09/01/2021
--- OUTSIDE RECORDS SUMMARY | 2022-11-09 23:24 | XMS_ITS | CCD ---
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 Name Role Phone Tapan Shirley PA-C Primary Care Provider Unavailabl e Tapan Shirley PA-C Chronic Care Management Unavaila ble Summary Purpose DataExchange Insurance Providers Payer name Policy type / Coverage type Covered libertarian ID Effective Begin Date Effective End Date [place] [id number] Unknown Unknown Medicaid ID Medicare Part B [id number] Unknown Unknown Family history Runs in the family Diagnosis Age At Onset No Known Diseases N/A Social History Social History Element Codes Description Effec tive Dates Living arrangements Unknown [facility] 09/03/[address]: 3921231 Non-Smoker / No History of Smoking 09/02/[address]: 728448857 No Alcohol Consum ption 09/02/2020 Allergies, Adverse Reactions, Alerts Substance Reaction Codes Entered Date Inactivated Date Status LISINOPRIL RxNorm: 6821410No Inactive DateActiveMetformin WOxPauvwxr47/28/2020No Inactive DateActive Problems Condition Codes Effective Dates Condition St atus Amputated toe of right foot ICD-10: S98. 131A ICD-9: 895.004/ctiveHyperlipidemia associated with type 2 diabetes mellitusICD-10: E11.69 ICD-9: 250.8004/2ActiveHypertension associated with diabetesICD-10: E11.59 ICD-9: 250.8004/2ActiveLong term (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 insulinICD-10: Z79.4 09/01/2021ctiveLower extremity edemaICD-10: R60.0 ICD-9: 782.304/ctiveOnychogryposisICD-10: L60.2 ICD-9: 703.804/ctiveSeizure disorderICD-10: G40.909 ICD-9: 345.9004/ctiveStage 2 chronic 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ICD-10: E11.22 ICD-9: 250.4004/ctiveType 2 diabetes mellitus with diabetic polyneuropathy, with long-term current use of insulinICD-10: E11.42 ICD-9: 250.6004/ctiveMuscular painICD-10: M79.10 ICD-9: 729.103/ctivePain of right heelICD-10: M79.671 ICD-9: 729.503/ctiveCoronary artery disease involving wales coronary artery of wales heart, angina presence unspecifiedICD-10: I25.10 ICD-9: 414.010/ctiveDVT (deep venous thrombosis)ICD-10: I82.409 ICD-9: 453.400/ctiveEncounter for immunizationICD-10: Z23 ICD-9: V03.8902/ctiveCandidiasis, intertrigoICD-10: B37.2 ICD-9: 112.301/ctiveHistory of anemia due to CKDICD-10: N18.9 ICD-9: 585.901ctiveStage 2 chronic kidney diseaseICD-10: N18.2 ICD-9: 585.201ctiveDepressionICD-10: F32.9 ICD-9: 73651/ctiveLearning disabilityICD-10: F81.9 ICD-9: 315.212/1ActiveSkin tagICD-10: L91.8 ICD-9: 701.911/ctiveVitamin D deficiencyICD-10: E55.9 ICD-9: 268.911/ctiveCellulitisICD-10: L03.90 ICD-9: 682.910/ctiveCallus of heelICD-10: L84 ICD-9: 77232/ctiveImpacted cerumen, left earICD-10: H61.22 ICD-9: 380.408/17/2021ActiveInappropriate sexual behaviorICD-10: Z72.89 ICD-9: 312.8908ctiveContact with and (suspected) exposure to covid-19 ICD-10: Z20.822 ICD-9: V01.7908/esolvedOther infective acute otitis externa of left ear ICD-10: H60.392 ICD-9: 380.1008/esolvedScrotal skin lesionICD-10: N50.9 ICD-9: 608.908esolvedTinea pedisICD-10: B35.3 ICD-9: 110.408esolvedVisit for preventive health examinationICD-10: Z00.00 ICD-9: V70.008/esolvedSecondary hypertensionICD-10: I15.9 ICD-9: 405.9906ctiveAnemia due to stage 3b chronic kidney diseaseICD- 10: N18.32 ICD-9: 285.2101ResolvedGout due to renal impairmentICD-10: M10.30 ICD-9: 274.10009/03/2020ctiveChronic kidney disease, stage 3 unspecifiedICD-10: N18.30009/03/2020esolvedDandruff in adultICD-10: L21.0 ICD-9: 690.18007/08/2020ctiveContact with and (suspected) exposure to other viral communicable diseasesICD-10: Z20.828 ICD-9: V01.7907/08/2020esolvedHyperhidrosis of palmsICD-10: L74.512 ICD-9: 705.6054XvvnutDhpoubjrWjzlfea78/28/2020ActiveDiabetes mellitus Type 9Tlnkccq56/28/2020ActiveAnemia in chronic kidney diseaseICD-10: D63.1 02/12/2020ResolvedHyperlipidemia, unspecifiedICD-10: E78.Resolved Medications Medication Codes Instructions Start Date Stop Date Status Fill Instructions Novofine Autocover 30 gauge x 1/3 needle RxNorm: Use 1 Miscellaneous UD as directed Use 1 needle as directed to administer insulin 5 times a day Dx:E11.42. 10/03/19 22 022 Inactive ok to substitute with any covered alternative pen needle benzoyl peroxide 10 % topical cleanser RxNorm: 129669 Apply 1 Application Topical QD apply to face, wash rinse and dry once daily (may change to QOD if drying) 08/19/19 22 022 Inactive (%covered by insurance) #60ml refill 11 dx: acne Lyrica 100 mg capsule RxNorm: 576836 Take 1 Capsule(s) Oral QHS every night at bedtime Take 1 capsule by mouth once daily at bedtime 08/19/19 022 Inactive benzoyl peroxide 10 % topical cleanser RxNorm: 956925 Apply 1 Application Topical QD apply to face, wash rinse and dry once daily (may change to QOD if drying) 08/19/19 22 022 Inactive (%covered by insurance) #60ml refill 11 dx: acne benzoyl peroxide 10 % topical cleanser RxNorm: 202879 Apply 1 Application Topical QD apply to face, wash rinse and dry once daily (may change to QOD if drying) 08/19/19 22 022 Inactive (%covered by insurance) #60ml refill 11 dx: acne Lyrica 50 mg capsule RxNorm: 086684 Take 1 Capsule(s) Oral QAM every morning Take 1 capsule by mouth once daily 08/19/19 22 022 Inactive benzoyl peroxide 10 % topical cleanser RxNorm: 155594 Apply 1 Application Topical QD apply to face, wash rinse and dry once daily (may change to QOD if drying) 08/19/19 22 022 Inactive (%covered by insurance) #60ml refill 11 dx: acne Lyrica 100 mg capsule RxNorm: 187067 Take 1 Capsule(s) Oral QHS every night at bedtime Take 1 capsule by mouth once daily at bedtime 08/16/19 22 022 Inactive Lyrica 50 mg capsule RxNorm: 923907 Take 1 Capsule(s) Oral QAM every morning Take 1 capsule by mouth once daily 08/16/19 22 022 Inactive Levemir FlexTouch U-100 Insulin 100 unit/mL (3 mL) subcutaneous pen RxNorm: 640055 Inject 86 Unit(s) Subcutaneous BID 08/05/19 22 022 Inactive d/c 83units BID Lyrica 100 mg capsule RxNorm: 681362 Take 1 Capsule(s) Oral QHS every night at bedtime Take 1 capsule by mouth once daily at bedtime 07/14/19 22 022 Inactive Lyrica 50 mg capsule RxNorm: 686729 Take 1 Capsule(s) Oral QAM every morning Take 1 capsule by mouth once daily 07/14/19 22 022 Inactive Levemir FlexTouch U-100 Insulin 100 unit/mL (3 mL) subcutaneous pen RxNorm: 898305 Inject 83 Unit(s) Subcutaneous BID 07/08/19 22 [...] to administer insulin 5 times a day Dx:E1106/05/19 022 Inactive ok to substitute with [...] test strip hydralazine 50 mg tablet RxNorm: 351295 Take 1 Tablet(s) Oral QID 05/05/20 Inactive isosorbide mononitrate ER 30 mg tablet,extended release 24 hr RxNorm: 292225 Take 1 Tablet(s) Oral QD 05/05/20 No Stop Date Active venlafaxine ER 225 mg tablet,extended release 24 hr RxNorm: 960589 Take 1 Tablet(s) Oral QD 05/05/20 Inactive venlafaxine ER 225 mg tablet,extended release 24 hr RxNorm: 350018 Take 1 Tablet(s) Oral QD 05/05/20 022 Inactive hydralazine 50 mg tablet RxNorm: 864630 Take 1 Tablet(s) Oral QID 05/05/20 Inactive aspirin 81 mg tablet,delayed release RxNorm: 106791 Take 1 Tablet(s) Oral QD 03/31/20 Inactive Vitamin D2 1,250 mcg (50,000 unit) capsule RxNorm: 4107106 Take 1 Capsule(s) Oral QW once a week x 12 weeks 03/31/20 022 Inactive Zetia 10 mg tablet RxNorm: 187981 Take 1 Tablet(s) Oral QD 03/31/20 Inactive Vitamin D2 1,250 mcg (50,000 unit) capsule RxNorm: 5699374 Take 1 Capsule(s) Oral QW once a week 03/31/20 Inactive Zetia 10 mg tablet RxNorm: 404911 Take 1 Tablet(s) Oral QD 03/31/20 Inactive hydralazine 25 mg tablet RxNorm: 986911 Take 1 Tablet(s) Oral QID 11/15/20 21 12/19/2 021 Inactive hydralazine 25 mg tablet RxNorm: 818596 Take 1 Tablet(s) Oral QID 03/31/20 021 Inactive hydralazine 10 mg tablet RxNorm: 558207 Take 1 Tablet(s) Oral QID 03/03/20 021 Inactive cephalexin 500 mg tablet RxNorm: 235934 Take 1 Tablet(s) Oral QID 02/27/20 021 Inactive cephalexin 500 mg tablet RxNorm: 574209 Take 1 Tablet(s) Oral QID 02/27/20 021 Inactive lisinopril 40 mg tablet RxNorm: 642799 Take 1 Tablet(s) Oral QD 02/11/20 023 Inactive Eliquis 5 mg tablet RxNorm: 3983043 Take 1 Tablet(s) Oral BID 01/05/20 022 Inactive Eliquis 5 mg tablet RxNorm: 7858867 Take 2 Tablet(s) Oral QD 01/01/20 021 Inactive Lyrica 50 mg capsule RxNorm: 800069 Take 1 Capsule(s) Oral QAM every morning 12/24/19 021 Inactive Lyrica 100 mg capsule RxNorm: 899370 Take 1 Capsule(s) Oral QHS every night at bedtime 12/24/19 021 Inactive clotrimazole 1 % topical cream RxNorm: 562437 Apply to right foot and toes Topical BID 12/04/19 21 023 Inactive metoprolol succinate ER 200 mg tablet,extended release 24 hr RxNorm: 117901 Take 1 Tablet(s) Oral QD 12/04/19 023 Inactive ciprofloxacin 500 mg tablet RxNorm: 619327 Take 1 Tablet(s) Oral QD 11/30/19 21 021 Inactive DX ofloxacin otic drops Accu-Chek Guide test strips RxNorm: USE 1 TO CHECK GLUCOSE 4 TIMES DAILY AND NEEDED 11/15/19 21 023 Inactive Blood Glucose Test strips RxNorm: Use 1 Test Strip QID at PRN 11/05/19 023 Inactive E11.42 lisinopril 30 mg tablet RxNorm: 115470 Take 1 Tablet(s) Oral QD 10/30/19 021 Inactive lisinopril 20 mg tablet RxNorm: 306786 Take 1 Tablet(s) Oral QD 10/23/19 21 021 Inactive lisinopril 20 mg tablet RxNorm: 363597 Take 1 Tablet(s) Oral QD 10/23/19 21 021 Inactive lisinopril 10 mg tablet RxNorm: 696740 Take 1 Tablet(s) Oral QD 10/02/19 21 021 Inactive icosapent ethyl 1 gram capsule RxNorm: 2573539 Take 2 Capsule(s) (2 gm) Oral BID with meals 09/12/19 022 Inactive Okay to dispense one 2gm tab if you have that available. icosapent ethyl 1 gram capsule RxNorm: 2990170 Take 2 Capsule(s) Oral BID 09/12/19 021 Inactive Okay to dispense one 2gm tab if you have that available. amlodipine 10 mg tablet RxNorm: 155947 Take 1 Tablet(s) Oral QD 09/04/19 022 Inactive aspirin 81 mg tablet,delayed release RxNorm: 538643 Take 1 Tablet(s) Oral QD 09/04/19 21 021 Inactive Levemir FlexTouch U-100 Insulin 100 unit/mL (3 mL) subcutaneous pen RxNorm: 897728 Inject 150 Unit(s) Subcutaneous BID 09/04/19 21 022 Inactive venlafaxine ER 150 mg tablet,extended release 24 hr RxNorm: 077172 Take 1 Tablet(s) Oral QD 09/04/19 21 021 Inactive clotrimazole-betame thasone 1 %-0.05 % topical cream RxNorm: 314947 Apply to rash on red area on left abdomen/chest Topical BID 08/10/19 21 021 Inactive amlodipine 5 mg tablet RxNorm: 087105 Take 1 Tablet(s) Oral QD 07/31/19 21 021 Inactive cephalexin 500 mg tablet RxNorm: 515431 Take 1 Tablet(s) Oral BID BID - Twice Daily 07/31/19 21 021 Inactive Start 08/01/20 pantoprazole 40 mg tablet,delayed release RxNorm: 009526 Take 1 Tablet(s) Oral QAM every morning 07/08/19 022 Inactive senna 8.6 mg tablet RxNorm: 712202 Take 1 Tablet(s) Oral QD 07/08/19 022 Inactive pravastatin 80 mg tablet RxNorm: 723809 Take 1 Tablet(s) Oral QHS every night at bedtime 07/08/19 022 Inactive clotrimazole 1 % topical cream RxNorm: 669402 Apply to bilateral groin areas Topical BID 07/08/19 022 Inactive carbamazepine 200 mg tablet RxNorm: 243706 Take 1 Tablet(s) Oral BID 07/08/19 022 Inactive torsemide 20 mg tablet RxNorm: 662081 Take 1 Tablet(s) Oral QD 07/08/19 023 Inactive clopidogrel 75 mg tablet RxNorm: 621685 Take 1 Tablet(s) Oral QD 07/08/19 021 Inactive Blood Glucose Test strips RxNorm: Use 1 Test Strip QID at PRN 07/08/19 Inactive E11.42 Novolog Flexpen U-100 Insulin aspart 100 unit/mL (3 mL) subcutaneous RxNorm: 2718714 Administer per sliding scale Milliliter(s) Subcutaneous TID 151-200: 10 u; 201-250: 20 u; 251-300: 30 u; 301-350: 40 u; 351-400: 50 u. 07/08/19 21 022 Inactive lisinopril 5 mg tablet RxNorm: 865324 Take 1 Tablet(s) Oral QD 07/08/19 021 Inactive Novolog Flexpen U-100 Insulin aspart 100 unit/mL (3 mL) subcutaneous RxNorm: 6939523 Inject 85 Unit(s) Subcutaneous TID 07/08/19 21 022 Inactive metoprolol succinate ER 200 mg tablet,extended release 24 hr RxNorm: 599360 Take 1 Tablet(s) Oral QD 07/08/19 21 Inactive Vitamin D3 25 mcg (1,000 unit) tablet RxNorm: 898330 Take 1 Tablet(s) Oral QD 07/08/19 Inactive isosorbide dinitrate 30 mg tablet RxNorm: 163380 Take 1 Tablet(s) Oral QD 07/08/19 Inactive Levemir FlexTouch U-100 Insulin 100 unit/mL (3 mL) subcutaneous pen RxNorm: 843505 Inject 140 Unit(s) Subcutaneous BID 07/08/19 Inactive venlafaxine 75 mg tablet RxNorm: 787588 Take 1 Tablet(s) Oral QD 07/08/19 Inactive acetaminophen 500 mg tablet RxNorm: 826208 Take 1 Tablet(s) Oral TID as needed for headache 06/18/19 Inactive acetaminophen 500 mg tablet RxNorm: 955050 Take 1 Tablet(s) Oral TID as needed for headache 06/18/19 Inactive Lyrica 100 mg capsule RxNorm: 346593 Take 1 Capsule(s) Oral QHS every night at bedtime 06/11/19 021 Inactive Lyrica 50 mg capsule RxNorm: 397062 Take 1 Capsule(s) Oral QAM every morning 06/10/19 Inactive hydrocortisone 2.5 % topical cream RxNorm: 912380 Apply to bilateral groin creases Topical BID 05/15/20 20 021 Inactive clotrimazole 1 % topical cream RxNorm: 973775 Apply to bilateral groin areas Topical BID 05/15/20 20 021 Inactive Lyrica 50 mg capsule RxNorm: 420327 Take 1 Capsule(s) Oral QAM every morning 05/14/20 20 Inactive Lyrica 100 mg capsule RxNorm: 600242 Take 1 Capsule(s) Oral QHS every night [...] Inactive Nystop 100,000 unit/gram topical powder RxNorm: 365685 Apply to abd folds, under breasts and L side of groin Topical BID x 14 days, then BID PRN 04/08/20 20 021 Inactive dx: yeast dermatitis Lyrica 100 mg capsule RxNorm: 850145 Take 1 Capsule(s) Oral QHS every night at bedtime 03/13/20 20 Inactive Lyrica 50 mg capsule RxNorm: 366800 Take 1 Capsule(s) Oral QAM every morning 03/13/20 Inactive ketoconazole 2 % shampoo RxNorm: 095319 Apply Topical two times a week with showers 03/11/20 20 Inactive cholecalciferol (vitamin D3) 50 mcg (2,000 unit) tablet RxNorm: 253269 Take 1 Tablet(s) Oral QD 03/11/20 20 021 Inactive Zetia 10 mg tablet RxNorm: 472222 Take 1 Tablet(s) Oral QD 03/07/20 20 021 Inactive Zetia 10 mg tablet RxNorm: 824697 Take 1 Tablet(s) Oral QD 03/07/20 20 Inactive Lyrica 50 mg capsule RxNorm: 769562 Take 1 Capsule(s) Oral QAM every morning 02/15/20 20 Inactive Lyrica 100 mg capsule RxNorm: 773719 Take 1 Capsule(s) Oral QHS every night at bedtime 02/15/20 Inactive Lyrica 100 mg capsule RxNorm: 531812 Take 1 Capsule(s) Oral QHS every night at bedtime 02/15/20 Inactive Lyrica 50 mg capsule RxNorm: 020876 Take 1 Capsule(s) Oral QAM every morning 02/15/20 20 Inactive venlafaxine ER 75 mg capsule,extended release 24 hr RxNorm: 928360 Take 3 Capsule(s) Oral QD 06/12/2021 Activepolyethylene glycol 3350 17 gram/dose oral powderRxNorm: 183178Yhsr 17=1 capful Gram(s) Oral BID as needed mix with 4-8oz of byhjgk0106/12/2021ctive Levemir FlexTouch U-100 Insulin 100 unit/mL (3 mL) subcutaneous penRxNorm: 757008Kglklf 80 Unit(s) Subcutaneous BID/Inactiveloperamide 2 mg capsuleRxNorm: 125218Wjbc 1 Capsule(s) Oral QID as mwdiba3106/12/2021ctive Novolog Flexpen U-100 Insulin aspart 100 unit/mL (3 mL) subcutaneousRxNorm: 3141740Kqziyi 30 Unit(s) Subcutaneous TID with mealsInactive Medication [...] Codes Status Date Referral: [facility] WPtel: [address], [address] [id number] USReferralRecords Eoxysktq56/08/2023Referral: [facility] WPtel: [address] [id number] GPZjpnywafXzuzpaibn89/12/2022Referral: General CardiologyReferralCompleted 1Referral: General PsychologistReferralClosed Instructions Comment [...] [facility] to have closer nursing attention. Sister Jyotsna involved in his care cell# [phone] Guardian: Don (tapan met in person 09/01/21), now has Lexii (same group as don)Lab Schedule: * 10/06/2022
--- OUTSIDE RECORDS SUMMARY | 2022-11-09 23:24 | XMS_ITS | CCD ---
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 Braille Typist Name Role Phone Tapan Shirley PA-C Primary Care Provider Unavailabl e Tapan Shirley PA-C Chronic Care Management Unavaila ble Summary Purpose DataExchange Insurance Providers Payer name Policy type / Coverage type Covered republican ID Effective Begin Date Effective End Date [place] Medicare Part B [id number] Unknown Unknown [place] B [id number] Unknown Unknown Family history Sister Brittany Suggs Diagnosis Age At Onset No Family Disease Entered N/A Runs in the family Diagnosis Age At Onset No Known Diseases N/A Sister Blanka Mcduffie Diagnosis Age At Onset No Family Disease Entered N/A Social History Social History Element Codes Description Effec tive Dates Marital status Unknown Single 10/07/2021 Living arrangements Unknown Mcfp 09/03/[address]: 7335107 Non-Smoker / No History of Smoking 09/02/[address]: 500130016 No Alcohol Consum ption 09/02/2020 Allergies, Adverse Reactions, Alerts Substance Reaction Codes Entered Date Inactivated Date Status LISINOPRIL RxNorm: 2077036No Inactive DateActiveMetformin HQsBmffefx71/28/2020No Inactive DateActive Problems Condition Codes Effective Dates Condition St atus History of anemia due to CKD ICD-10: N18 .9 ICD-9: 585.905/2ActiveHyperlipidemia associated with type 2 diabetes mellitusICD-10: E11.69 ICD-9: 250.80052ActiveHypertension associated with diabetesICD-10: E11.59 ICD-9: 250.2ActiveLower extremity edemaICD-10: R60.0 ICD-9: 782.305/ctivePreventative health careICD-10: Z00.00 ICD-9: V70.005/2ActiveStage 2 chronic kidney diseaseICD-10: N18.2 ICD-9: 585.205/2ActiveStage 2 chronic 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ICD-10: E11.22 ICD-9: 250.4005/ctiveType 2 diabetes mellitus with diabetic polyneuropathy, with long-term current use of insulinICD-10: E11.42 ICD-9: 250.6005/ctiveAmputated toe of right footICD-10: S98.131A ICD-9: 895.004/ctiveLong term (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 insulinICD-10: Z79.4 09/01/2021ctiveOnychogryposisICD-10: L60.2 ICD-9: 703.804/ctiveSeizure disorderICD-10: G40.909 ICD-9: 345.9004/ctiveMuscular painICD-10: M79.10 ICD-9: 729.103/ctivePain of right heelICD-10: M79.671 ICD-9: 729.503/ctiveCoronary artery disease involving apache coronary artery of apache heart, angina presence unspecifiedICD-10: I25.10 ICD-9: 414.010/ctiveDVT (deep venous thrombosis)ICD-10: I82.409 ICD-9: 453.40007/08/2021ctiveEncounter for immunizationICD-10: Z23 ICD-9: V03.8902/ctiveCandidiasis, intertrigoICD-10: B37.2 ICD-9: 112.301/2ActiveDepressionICD-10: F32.9 ICD-9: 55665/ctiveLearning disabilityICD-10: F81.9 ICD-9: 315.212/1ActiveSkin tagICD-10: L91.8 ICD-9: 701.911/ctiveVitamin D deficiencyICD-10: E55.9 ICD-9: 268.911/ctiveCellulitisICD-10: L03.90 ICD-9: 682.910/ctiveCallus of heelICD-10: L84 ICD-9: 33104/ctiveImpacted cerumen, left earICD-10: H61.22 ICD-9: 380.408/ctiveInappropriate sexual behaviorICD-10: Z72.89 ICD-9: 312.8908/ctiveContact with and (suspected) exposure to covid-19 ICD-10: Z20.822 ICD-9: V01.7908esolvedOther infective acute otitis externa of left ear ICD-10: H60.392 ICD-9: 380.10012/31/2020esolvedScrotal skin lesionICD-10: N50.9 ICD-9: 608.908esolvedTinea pedisICD-10: B35.3 ICD-9: 110.408/esolvedSecondary hypertensionICD-10: I15.9 ICD-9: 405.9906ctiveAnemia due to stage 3b chronic kidney diseaseICD- 10: N18.32 ICD-9: 285.21010/01/2020esolvedGout due to renal impairmentICD-10: M10.30 ICD-9: 274.10009/03/2020ctiveChronic kidney disease, stage 3 unspecifiedICD-10: N18.30009/03/2020esolvedDandruff in adultICD-10: L21.0 ICD-9: 690.18007/08/2020ctiveContact with and (suspected) exposure to other viral communicable diseasesICD-10: Z20.828 ICD-9: V01.7902esolvedHyperhidrosis of palmsICD-10: L74.512 ICD-9: 705.1801RxeaizJaxsmeoyOkjvemk22/28/2020ActiveDiabetes mellitus Type 0Gnbmosk05/28/2020ActiveAnemia in chronic kidney diseaseICD-10: D63.1 02/12/2020ResolvedHyperlipidemia, unspecifiedICD-10: E78.509Resolved Medications Medication Codes Instructions Start Date Stop Date Status Fill Instructions pregabalin 50 mg capsule RxNorm: 140274 1 Capsule(s) Oral QAM every morning 10/15/19 22 Inactive Shingrix (PF) 50 mcg/0.5 mL intramuscular suspension, kit RxNorm: 5492083 Administer 1/2 Milliliter(s) Intramuscular one time Nursing please administer upon arrival and once administered 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, whitewasher, 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 10/09/19 22 022 Inactive shingrix step 1 Shingrix (PF) 50 mcg/0.5 mL intramuscular suspension, kit RxNorm: 3181361 Administer 1/2 Milliliter(s) Intramuscular one time Nursing please administer upon arrival and once administered 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, whitewasher, 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 10/09/19 22 022 Inactive shingrix step 1 Novolog Flexpen U-100 Insulin aspart 100 unit/mL (3 mL) subcutaneous RxNorm: 7500663 Inject 10 Unit(s) Subcutaneous QHS every night at bedtime with nighttime snack 10/08/19 22 Inactive Novolog Flexpen U-100 Insulin aspart 100 unit/mL (3 mL) subcutaneous RxNorm: 6979066 Inject 36 Unit(s) Subcutaneous TID in addition to sliding scale 10/08/19 22 Inactive cholecalciferol (vitamin D3) 1,250 mcg (50,000 unit) capsule RxNorm: 684572 Take 1 Capsule(s) Oral QW once a [...] 50 mcg/0.5 mL intramuscular suspension, kit RxNorm: 3404968 ADMINISTER 2-DOSE SERIES PER CDC GUIDELINES 10/08/19 22 Active Shingrix (PF) 50 mcg/0.5 mL intramuscular suspension, kit RxNorm: 3670130 ADMINISTER 2-DOSE SERIES PER CDC GUIDELINES 10/08/19 22 Inactive Novofine Autocover 30 gauge x 1/3 needle RxNorm: Use 1 Miscellaneous UD as directed Use 1 needle as directed to administer insulin 5 times a day Dx:E11.42. 10/03/19 22 Inactive ok to substitute with any covered alternative pen needle benzoyl peroxide 10 % topical cleanser RxNorm: 038215 Apply 1 Application Topical QD apply to face, wash rinse and dry once daily (may change to QOD if drying) 08/19/19 Inactive (%covered by insurance) #60ml refill 11 dx: acne Lyrica 100 mg capsule RxNorm: 614826 Take 1 Capsule(s) Oral QHS every night at bedtime Take 1 capsule by mouth once daily at bedtime 08/19/19 22 Inactive benzoyl peroxide 10 % topical cleanser RxNorm: 629270 Apply 1 Application Topical QD apply to face, wash rinse and dry once daily (may change to QOD if drying) 08/19/19 22 Inactive (%covered by insurance) #60ml refill 11 dx: acne benzoyl peroxide 10 % topical cleanser RxNorm: 725848 Apply 1 Application Topical QD apply to face, wash rinse and dry once daily (may change to QOD if drying) 08/19/19 22 022 Inactive (%covered by insurance) #60ml refill 11 dx: acne Lyrica 50 mg capsule RxNorm: 237932 Take 1 Capsule(s) Oral QAM every morning Take 1 capsule by mouth once daily 08/19/19 22 022 Inactive benzoyl peroxide 10 % topical cleanser RxNorm: 677326 Apply 1 Application Topical QD apply to face, wash rinse and dry once daily (may change to QOD if drying) 08/19/19 22 022 Inactive (%covered by insurance) #60ml refill 11 dx: acne Lyrica 100 mg capsule RxNorm: 666125 Take 1 Capsule(s) Oral QHS every night at bedtime Take 1 capsule by mouth once daily at bedtime 08/16/19 22 022 Inactive Lyrica 50 mg capsule RxNorm: 590311 Take 1 Capsule(s) Oral QAM every morning Take 1 capsule by mouth once daily 08/16/19 22 022 Inactive Levemir FlexTouch U-100 Insulin 100 unit/mL (3 mL) subcutaneous pen RxNorm: 808463 Inject 86 Unit(s) Subcutaneous BID 08/05/19 22 022 Inactive d/c 83units BID Lyrica 100 mg capsule RxNorm: 690623 Take 1 Capsule(s) Oral QHS every night at bedtime Take 1 capsule by mouth once daily at bedtime 07/14/19 22 022 Inactive Lyrica 50 mg capsule RxNorm: 236918 Take 1 Capsule(s) Oral QAM every morning Take 1 capsule by mouth once daily 07/14/19 22 022 Inactive Levemir FlexTouch U-100 Insulin 100 unit/mL (3 mL) subcutaneous pen RxNorm: 348271 Inject 83 Unit(s) Subcutaneous BID 07/08/19 22 [...] test strip hydralazine 50 mg tablet RxNorm: 114570 Take 1 Tablet(s) Oral QID 05/05/20 21 Inactive isosorbide mononitrate ER 30 mg tablet,extended release 24 hr RxNorm: 707977 Take 1 Tablet(s) Oral QD 05/05/20 No Stop Date Active venlafaxine ER 225 mg tablet,extended release 24 hr RxNorm: 415004 Take 1 Tablet(s) Oral QD 05/05/20 21 Inactive venlafaxine ER 225 mg tablet,extended release 24 hr RxNorm: 355559 Take 1 Tablet(s) Oral QD 05/05/20 Inactive hydralazine 50 mg tablet RxNorm: 545283 Take 1 Tablet(s) Oral QID 05/05/20 Inactive aspirin 81 mg tablet,delayed release RxNorm: 577541 Take 1 Tablet(s) Oral QD 03/31/20 Inactive Zetia 10 mg tablet RxNorm: 810355 Take 1 Tablet(s) Oral QD 03/31/20 Inactive Vitamin D2 1,250 mcg (50,000 unit) capsule RxNorm: 7148129 Take 1 Capsule(s) Oral QW once a week x 12 weeks 11/15/20 21 05/23/2 022 Inactive Vitamin D2 1,250 mcg (50,000 unit) capsule RxNorm: 3315647 Take 1 Capsule(s) Oral QW once a week 03/31/20 Inactive Zetia 10 mg tablet RxNorm: 769238 Take 1 Tablet(s) Oral QD 03/31/20 021 Inactive hydralazine 25 mg tablet RxNorm: 703951 Take 1 Tablet(s) Oral QID 03/31/20 021 Inactive hydralazine 25 mg tablet RxNorm: 284607 Take 1 Tablet(s) Oral QID 03/31/20 021 Inactive hydralazine 10 mg tablet RxNorm: 508797 Take 1 Tablet(s) Oral QID 03/03/20 021 Inactive cephalexin 500 mg tablet RxNorm: 902391 Take 1 Tablet(s) Oral QID 02/27/20 021 Inactive cephalexin 500 mg tablet RxNorm: 494256 Take 1 Tablet(s) Oral QID 02/27/20 021 Inactive lisinopril 40 mg tablet RxNorm: 312591 Take 1 Tablet(s) Oral QD 02/11/20 023 Inactive Eliquis 5 mg tablet RxNorm: 9424208 Take 1 Tablet(s) Oral BID 01/05/20 022 Inactive Eliquis 5 mg tablet RxNorm: 2790023 Take 2 Tablet(s) Oral QD 01/01/20 21 021 Inactive Lyrica 50 mg capsule RxNorm: 237677 Take 1 Capsule(s) Oral QAM every morning 12/24/19 021 Inactive Lyrica 100 mg capsule RxNorm: 024707 Take 1 Capsule(s) Oral QHS every night at bedtime 12/24/19 021 Inactive clotrimazole 1 % topical cream RxNorm: 644055 Apply to right foot and toes Topical BID 12/04/19 21 023 Inactive metoprolol succinate ER 200 mg tablet,extended release 24 hr RxNorm: 060816 Take 1 Tablet(s) Oral QD 12/04/19 023 Inactive ciprofloxacin 500 mg tablet RxNorm: 749507 Take 1 Tablet(s) Oral QD 11/30/19 21 021 Inactive DX ofloxacin otic drops Accu-Chek Guide test strips RxNorm: USE 1 TO CHECK GLUCOSE 4 TIMES DAILY AND NEEDED 11/15/19 21 023 Inactive Blood Glucose Test strips RxNorm: Use 1 Test Strip QID at PRN 11/05/19 21 023 Inactive E11.42 lisinopril 30 mg tablet RxNorm: 518869 Take 1 Tablet(s) Oral QD 10/30/19 021 Inactive lisinopril 20 mg tablet RxNorm: 839733 Take 1 Tablet(s) Oral QD 10/23/19 021 Inactive lisinopril 20 mg tablet RxNorm: 325993 Take 1 Tablet(s) Oral QD 10/23/19 021 Inactive lisinopril 10 mg tablet RxNorm: 741716 Take 1 Tablet(s) Oral QD 10/02/19 021 Inactive icosapent ethyl 1 gram capsule RxNorm: 1856157 Take 2 Capsule(s) (2 gm) Oral BID with meals 09/12/19 022 Inactive Okay to dispense one 2gm tab if you have that available. icosapent ethyl 1 gram capsule RxNorm: 5604024 Take 2 Capsule(s) Oral BID 09/12/19 021 Inactive Okay to dispense one 2gm tab if you have that available. amlodipine 10 mg tablet RxNorm: 329130 Take 1 Tablet(s) Oral QD 09/04/19 022 Inactive aspirin 81 mg tablet,delayed release RxNorm: 736944 Take 1 Tablet(s) Oral QD 09/04/19 021 Inactive Levemir FlexTouch U-100 Insulin 100 unit/mL (3 mL) subcutaneous pen RxNorm: 427636 Inject 150 Unit(s) Subcutaneous BID 09/04/19 21 022 Inactive venlafaxine ER 150 mg tablet,extended release 24 hr RxNorm: 991273 Take 1 Tablet(s) Oral QD 09/04/19 21 021 Inactive clotrimazole-betame thasone 1 %-0.05 % topical cream RxNorm: 519482 Apply to rash on red area on left abdomen/chest Topical BID 08/10/19 21 021 Inactive amlodipine 5 mg tablet RxNorm: 997063 Take 1 Tablet(s) Oral QD 07/31/19 21 Inactive cephalexin 500 mg tablet RxNorm: 101949 Take 1 Tablet(s) Oral BID BID - Twice Daily 07/31/19 21 021 Inactive Start 08/01/20 pantoprazole 40 mg tablet,delayed release RxNorm: 395450 Take 1 Tablet(s) Oral QAM every morning 07/08/19 21 022 Inactive senna 8.6 mg tablet RxNorm: 675487 Take 1 Tablet(s) Oral QD 07/08/19 022 Inactive pravastatin 80 mg tablet RxNorm: 842669 Take 1 Tablet(s) Oral QHS every night at bedtime 07/08/19 022 Inactive clotrimazole 1 % topical cream RxNorm: 344075 Apply to bilateral groin areas Topical BID 07/08/19 21 022 Inactive carbamazepine 200 mg tablet RxNorm: 599031 Take 1 Tablet(s) Oral BID 07/08/19 21 022 Inactive torsemide 20 mg tablet RxNorm: 581701 Take 1 Tablet(s) Oral QD 07/08/19 21 023 Inactive clopidogrel 75 mg tablet RxNorm: 132052 Take 1 Tablet(s) Oral QD 07/08/19 21 021 Inactive Blood Glucose Test strips RxNorm: Use 1 Test Strip QID at PRN 07/08/19 21 021 Inactive E11.42 Novolog Flexpen U-100 Insulin aspart 100 unit/mL (3 mL) subcutaneous RxNorm: 1831862 Administer per sliding scale Milliliter(s) Subcutaneous TID 151-200: 10 u; 201-250: 20 u; 251-300: 30 u; 301-350: 40 u; 351-400: 50 u. 07/08/19 21 022 Inactive lisinopril 5 mg tablet RxNorm: 745030 Take 1 Tablet(s) Oral QD 07/08/19 21 021 Inactive Novolog Flexpen U-100 Insulin aspart 100 unit/mL (3 mL) subcutaneous RxNorm: 0272504 Inject 85 Unit(s) Subcutaneous TID 07/08/19 21 022 Inactive metoprolol succinate ER 200 mg tablet,extended release 24 hr RxNorm: 028194 Take 1 Tablet(s) Oral QD 07/08/19 021 Inactive Vitamin D3 25 mcg (1,000 unit) tablet RxNorm: 197978 Take 1 Tablet(s) Oral QD 07/08/19 021 Inactive isosorbide dinitrate 30 mg tablet RxNorm: 305006 Take 1 Tablet(s) Oral QD 07/08/19 021 Inactive Levemir FlexTouch U-100 Insulin 100 unit/mL (3 mL) subcutaneous pen RxNorm: 988767 Inject 140 Unit(s) Subcutaneous BID 07/08/19 021 Inactive venlafaxine 75 mg tablet RxNorm: 902184 Take 1 Tablet(s) Oral QD 07/08/19 021 Inactive acetaminophen 500 mg tablet RxNorm: 714538 Take 1 Tablet(s) Oral TID as needed for headache 06/18/19 021 Inactive acetaminophen 500 mg tablet RxNorm: 912483 Take 1 Tablet(s) Oral TID as needed for headache 06/18/19 021 Inactive Lyrica 100 mg capsule RxNorm: 036765 Take 1 Capsule(s) Oral QHS every night at bedtime 06/11/19 021 Inactive Lyrica 50 mg capsule RxNorm: 778559 Take 1 Capsule(s) Oral QAM every morning 06/10/19 21 021 Inactive hydrocortisone 2.5 % topical cream RxNorm: 329951 Apply to bilateral groin creases Topical BID 05/15/20 20 021 Inactive clotrimazole 1 % topical cream RxNorm: 306963 Apply to bilateral groin areas Topical BID 05/15/20 20 Inactive Lyrica 50 mg capsule RxNorm: 717728 Take 1 Capsule(s) Oral QAM every morning 05/14/20 20 Inactive Lyrica 100 mg capsule RxNorm: 556411 Take 1 Capsule(s) Oral QHS every night [...] Inactive Nystop 100,000 unit/gram topical powder RxNorm: 623790 Apply to abd folds, under breasts and L side of groin Topical BID x 14 days, then BID PRN 04/08/20 20 021 Inactive dx: yeast dermatitis Lyrica 100 mg capsule RxNorm: 530543 Take 1 Capsule(s) Oral QHS every night at bedtime 03/13/20 20 Inactive Lyrica 50 mg capsule RxNorm: 331907 Take 1 Capsule(s) Oral QAM every morning 03/13/20 20 Inactive ketoconazole 2 % shampoo RxNorm: 210145 Apply Topical two times a week with showers 03/11/20 20 Inactive cholecalciferol (vitamin D3) 50 mcg (2,000 unit) tablet RxNorm: 846589 Take 1 Tablet(s) Oral QD 03/11/20 20 Inactive Zetia 10 mg tablet RxNorm: 642129 Take 1 Tablet(s) Oral QD 03/07/20 20 Inactive Zetia 10 mg tablet RxNorm: 996247 Take 1 Tablet(s) Oral QD 03/07/20 Inactive Lyrica 50 mg capsule RxNorm: 927607 Take 1 Capsule(s) Oral QAM every morning 02/15/20 20 Inactive Lyrica 100 mg capsule RxNorm: 527995 Take 1 Capsule(s) Oral QHS every night at bedtime 02/15/20 Inactive Lyrica 100 mg capsule RxNorm: 672535 Take 1 Capsule(s) Oral QHS every night at bedtime 02/15/20 Inactive Lyrica 50 mg capsule RxNorm: 605809 Take 1 Capsule(s) Oral QAM every morning 02/15/20 Inactive venlafaxine ER 75 mg capsule,extended release 24 hr RxNorm: 296872 Take 3 Capsule(s) Oral QD 06/12/2021 Activepolyethylene glycol 3350 17 gram/dose oral powderRxNorm: 815891Mysa 17=1 capful Gram(s) Oral BID as needed mix with 4-8oz of eeloiu0306/12/2021ctive Levemir FlexTouch U-100 Insulin 100 unit/mL (3 mL) subcutaneous penRxNorm: 729509Pjqflc 80 Unit(s) Subcutaneous BID07/14//Inactiveloperamide 2 mg capsuleRxNorm: 846248Xjwy 1 Capsule(s) Oral QID as sdxptp2006/12/2021ctive Novolog Flexpen U-100 Insulin aspart 100 unit/mL (3 mL) subcutaneousRxNorm: 4409646Cwrnun 30 Unit(s) Subcutaneous TID with mealsInactive Medication [...] Date Referral: [facility] W[address]el: [phone] [id number] USReferralRecords Gmujzpmf30/08/2023Referral: [facility] WPtel: [address] [id number] XQKnqbsovdYjxjobbcc97/12/2022Referral: General CardiologyReferralCompleted 1Referral: General PsychologistReferralClosed Instructions Comment Date Leonid is a Male being seen living at [facility]. Initial BPS visit 01/2020. PMHx including DMII, CAD w/ 5 stents, Depression, Seizure Disorder and CKD stage 3. He moved into [facility] in 12/2019 but after a hospitalization 05/2021 he moved to the [facility] to have closer nursing attention. Sister Jyotsna involved in his care cell# [phone] Guardian: Don (tapan met in person 09/01/21), now has Lexii (same group as odn)Lab Schedule: * 10/06/2022
--- OUTSIDE RECORDS SUMMARY | 2022-11-09 23:24 | XMS_ITS | CCD ---
Author Name Tapan Shirley PA-C Address [address] [place] [address] Phone Organization [facility] Phone Care Team Providers Care Butter Melter Name Role Phone Tapan Shirley PA-C Primary Care Provider Unavailabl e Tapan Shirley PA-C Chronic Care Management Unavaila ble Summary Purpose DataExchange Insurance Providers Payer name Policy type / Coverage type Covered green party ID Effective Begin Date Effective End Date Medicare [place] Part B [id number] Unknown Unknown Medicaid [place] Medicare Part B [id number] Unknown Unknown Family history Sister Brittany Suggs Diagnosis Age At Onset No Family Disease Entered N/A Runs in the family Diagnosis Age At Onset No Known Diseases N/A Sister Blanka Mcduffie Diagnosis Age At Onset No Family Disease Entered N/A Social History Social History Element Codes Description Effec tive Dates Marital status Unknown Single 10/07/2021 Living arrangements Unknown [facility] 09/03/[address]: 2771880 Non-Smoker / No History of Smoking 09/02/[address]: 285803330 No Alcohol Consum ption 09/02/2020 Allergies, Adverse Reactions, Alerts Substance Reaction Codes Entered Date Inactivated Date Status LISINOPRIL RxNorm: 6889438No Inactive DateActiveMetformin MVjWrnytbo30/28/2020No Inactive DateActive Problems Condition Codes Effective Dates Condition St atus History of anemia due to CKD ICD-10: N18 .9 ICD-9: 585.902ActiveHyperlipidemia associated with type 2 diabetes mellitusICD-10: E11.69 ICD-9: 250.8002ActiveHypertension associated with diabetesICD-10: E11.59 ICD-9: 250.2ActiveLower extremity edemaICD-10: R60.0 ICD-9: 782.305/ctivePreventative health careICD-10: Z00.00 ICD-9: V70.005/ctiveStage 2 chronic kidney diseaseICD-10: N18.2 ICD-9: 585.205/ctiveStage 2 chronic 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ICD-10: E11.22 ICD-9: 250.4005/ctiveType 2 diabetes mellitus with diabetic polyneuropathy, with long-term current use of insulinICD-10: E11.42 ICD-9: 250.6005/ctiveAmputated toe of right footICD-10: S98.131A ICD-9: 895.004/ctiveLong term (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 insulinICD-10: Z79.4 09/01/2021ctiveOnychogryposisICD-10: L60.2 ICD-9: 703.804/ctiveSeizure disorderICD-10: G40.909 ICD-9: 345.9004/ctiveMuscular painICD-10: M79.10 ICD-9: 729.103/ctivePain of right heelICD-10: M79.671 ICD-9: 729.503/ctiveCoronary artery disease involving resighini coronary artery of resighini heart, angina presence unspecifiedICD-10: I25.10 ICD-9: 414.0102/ctiveDVT (deep venous thrombosis)ICD-10: I82.409 ICD-9: 453.4002ctiveEncounter for immunizationICD-10: Z23 ICD-9: V03.8902/ctiveCandidiasis, intertrigoICD-10: B37.2 ICD-9: 112.301/2ActiveDepressionICD-10: F32.9 ICD-9: 39400/1ActiveLearning disabilityICD-10: F81.9 ICD-9: 315.212/1ActiveSkin tagICD-10: L91.8 ICD-9: 701.911/ctiveVitamin D deficiencyICD-10: E55.9 ICD-9: 268.911/ctiveCellulitisICD-10: L03.90 ICD-9: 682.910/ctiveCallus of heelICD-10: L84 ICD-9: 46038/ctiveImpacted cerumen, left earICD-10: H61.22 ICD-9: 380.408/ctiveInappropriate sexual behaviorICD-10: Z72.89 ICD-9: 312.8908ctiveContact with and (suspected) exposure to covid-19 ICD-10: Z20.822 ICD-9: V01.7912/31/2020esolvedOther infective acute otitis externa of left ear ICD-10: H60.392 ICD-9: 380.1008esolvedScrotal skin lesionICD-10: N50.9 ICD-9: 608.908esolvedTinea pedisICD-10: B35.3 ICD-9: 110.408/esolvedSecondary hypertensionICD-10: I15.9 ICD-9: 405.9906ctiveAnemia due to stage 3b chronic kidney diseaseICD- 10: N18.32 ICD-9: 285.2105esolvedGout due to renal impairmentICD-10: M10.30 ICD-9: 274.1004ctiveChronic kidney disease, stage 3 unspecifiedICD-10: N18.3004esolvedDandruff in adultICD-10: L21.0 ICD-9: 690.18007/08/2020ctiveContact with and (suspected) exposure to other viral communicable diseasesICD-10: Z20.828 ICD-9: V01.7902esolvedHyperhidrosis of palmsICD-10: L74.512 ICD-9: 705.6895XphnixEoazclffAdnifty75/28/2020ActiveDiabetes mellitus Type 5Hmgvqiu83/28/2020ActiveAnemia in chronic kidney diseaseICD-10: D63.1 02/12/2020ResolvedHyperlipidemia, unspecifiedICD-10: E78.Resolved Medications Medication Codes Instructions Start Date Stop Date Status Fill Instructions Shingrix (PF) 50 mcg/0.5 mL intramuscular suspension, kit RxNorm: 9925982 Administer 1/2 Milliliter(s) Intramuscular one time Nursing please administer upon arrival and once administered 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, mixing and dispensing 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 10/09/19 22 022 Inactive shingrix step 1 Shingrix (PF) 50 mcg/0.5 mL intramuscular suspension, kit RxNorm: 7504842 Administer 1/2 Milliliter(s) Intramuscular one time Nursing please administer upon arrival and once administered 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, mixing and dispensing 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 10/09/19 22 022 Inactive shingrix step 1 tetanus,diphtheria toxoid ped (PF) 5 Lf unit-25 Lf unit/0.5 mL IM susp RxNorm: 28 Inject 1 Intramuscular once ADMINISTER PER CDC GUIDELINES 10/08/19 22 022 Inactive Tdap dx: tetanus prophylaxis, please dispense syringe and needle Novolog Flexpen U-100 Insulin aspart 100 unit/mL (3 mL) subcutaneous RxNorm: 0258799 Inject 10 Unit(s) Subcutaneous QHS every night at bedtime with nighttime snack 10/08/19 22 022 Inactive Shingrix (PF) 50 mcg/0.5 mL intramuscular suspension, kit RxNorm: 3288324 ADMINISTER 2-DOSE SERIES PER CDC GUIDELINES 10/08/19 22 022 Inactive Novolog Flexpen U-100 Insulin aspart 100 unit/mL (3 mL) subcutaneous RxNorm: 7617590 Inject 36 Unit(s) Subcutaneous TID in addition to sliding scale 10/08/19 22 022 Inactive cholecalciferol (vitamin D3) 1,250 mcg (50,000 unit) capsule RxNorm: 290641 Take 1 Capsule(s) Oral QW once a week 10/08/19 No Stop Date Active tetanus,diphtheria toxoid ped (PF) 5 Lf unit-25 Lf unit/0.5 mL IM susp RxNorm: 28 Inject 1 Intramuscular once ADMINISTER PER CDC GUIDELINES 10/08/19 22 Active Tdap dx: tetanus prophylaxis, please dispense syringe and needle Shingrix (PF) 50 mcg/0.5 mL intramuscular suspension, kit RxNorm: 8141892 ADMINISTER 2-DOSE SERIES PER CDC GUIDELINES 10/08/19 Active Novofine Autocover 30 gauge x 1/3 needle RxNorm: Use 1 Miscellaneous UD as directed Use 1 needle as directed to administer insulin 5 times a day Dx:E11.42. 10/03/19 Inactive ok to substitute with any covered alternative pen needle benzoyl peroxide 10 % topical cleanser RxNorm: 713147 Apply 1 Application Topical QD apply to face, wash rinse and dry once daily (may change to QOD if drying) 08/19/19 022 Inactive (%covered by insurance) #60ml refill 11 dx: acne Lyrica 100 mg capsule RxNorm: 581866 Take 1 Capsule(s) Oral QHS every night at bedtime Take 1 capsule by mouth once daily at bedtime 08/19/19 Inactive benzoyl peroxide 10 % topical cleanser RxNorm: 781738 Apply 1 Application Topical QD apply to face, wash rinse and dry once daily (may change to QOD if drying) 08/19/19 22 022 Inactive (%covered by insurance) #60ml refill 11 dx: acne benzoyl peroxide 10 % topical cleanser RxNorm: 688922 Apply 1 Application Topical QD apply to face, wash rinse and dry once daily (may change to QOD if drying) 08/19/19 22 022 Inactive (%covered by insurance) #60ml refill 11 dx: acne Lyrica 50 mg capsule RxNorm: 237088 Take 1 Capsule(s) Oral QAM every morning Take 1 capsule by mouth once daily 08/19/19 22 022 Inactive benzoyl peroxide 10 % topical cleanser RxNorm: 436181 Apply 1 Application Topical QD apply to face, wash rinse and dry once daily (may change to QOD if drying) 08/19/19 22 022 Inactive (%covered by insurance) #60ml refill 11 dx: acne Lyrica 100 mg capsule RxNorm: 434630 Take 1 Capsule(s) Oral QHS every night at bedtime Take 1 capsule by mouth once daily at bedtime 08/16/19 22 022 Inactive Lyrica 50 mg capsule RxNorm: 109133 Take 1 Capsule(s) Oral QAM every morning Take 1 capsule by mouth once daily 08/16/19 22 022 Inactive Levemir FlexTouch U-100 Insulin 100 unit/mL (3 mL) subcutaneous pen RxNorm: 599042 Inject 86 Unit(s) Subcutaneous BID 08/05/19 22 022 Inactive d/c 83units BID Lyrica 100 mg capsule RxNorm: 936933 Take 1 Capsule(s) Oral QHS every night at bedtime Take 1 capsule by mouth once daily at bedtime 07/14/19 22 022 Inactive Lyrica 50 mg capsule RxNorm: 169192 Take 1 Capsule(s) Oral QAM every morning Take 1 capsule by mouth once daily 07/14/19 22 022 Inactive Levemir FlexTouch U-100 Insulin 100 unit/mL (3 mL) subcutaneous pen RxNorm: 624107 Inject 83 Unit(s) Subcutaneous BID 07/08/19 22 [...] test strip hydralazine 50 mg tablet RxNorm: 321104 Take 1 Tablet(s) Oral QID 05/05/20 21 022 Inactive isosorbide mononitrate ER 30 mg tablet,extended release 24 hr RxNorm: 499208 Take 1 Tablet(s) Oral QD 05/05/20 No Stop Date Active venlafaxine ER 225 mg tablet,extended release 24 hr RxNorm: 886163 Take 1 Tablet(s) Oral QD 05/05/20 21 021 Inactive venlafaxine ER 225 mg tablet,extended release 24 hr RxNorm: 495353 Take 1 Tablet(s) Oral QD 05/05/20 21 022 Inactive hydralazine 50 mg tablet RxNorm: 667174 Take 1 Tablet(s) Oral QID 05/05/20 21 Inactive aspirin 81 mg tablet,delayed release RxNorm: 123239 Take 1 Tablet(s) Oral QD 03/31/20 21 Inactive Zetia 10 mg tablet RxNorm: 498322 Take 1 Tablet(s) Oral QD 03/31/20 21 Inactive Vitamin D2 1,250 mcg (50,000 unit) capsule RxNorm: 2334644 Take 1 Capsule(s) Oral QW once a week x 12 weeks 11/15/20 21 05/23/2 022 Inactive Vitamin D2 1,250 mcg (50,000 unit) capsule RxNorm: 8830375 Take 1 Capsule(s) Oral QW once a week 03/31/20 021 Inactive Zetia 10 mg tablet RxNorm: 747048 Take 1 Tablet(s) Oral QD 03/31/20 Inactive hydralazine 25 mg tablet RxNorm: 506282 Take 1 Tablet(s) Oral QID 03/31/20 021 Inactive hydralazine 25 mg tablet RxNorm: 502407 Take 1 Tablet(s) Oral QID 03/31/20 021 Inactive hydralazine 10 mg tablet RxNorm: 153890 Take 1 Tablet(s) Oral QID 03/03/20 021 Inactive cephalexin 500 mg tablet RxNorm: 408351 Take 1 Tablet(s) Oral QID 02/27/20 021 Inactive cephalexin 500 mg tablet RxNorm: 021867 Take 1 Tablet(s) Oral QID 02/27/20 021 Inactive lisinopril 40 mg tablet RxNorm: 663496 Take 1 Tablet(s) Oral QD 02/11/20 023 Inactive Eliquis 5 mg tablet RxNorm: 4161074 Take 1 Tablet(s) Oral BID 01/05/20 022 Inactive Eliquis 5 mg tablet RxNorm: 1300523 Take 2 Tablet(s) Oral QD 01/01/20 21 021 Inactive Lyrica 50 mg capsule RxNorm: 593675 Take 1 Capsule(s) Oral QAM every morning 12/24/19 21 021 Inactive Lyrica 100 mg capsule RxNorm: 370858 Take 1 Capsule(s) Oral QHS every night at bedtime 12/24/19 21 021 Inactive clotrimazole 1 % topical cream RxNorm: 603518 Apply to right foot and toes Topical BID 12/04/19 21 023 Inactive metoprolol succinate ER 200 mg tablet,extended release 24 hr RxNorm: 817145 Take 1 Tablet(s) Oral QD 12/04/19 023 Inactive ciprofloxacin 500 mg tablet RxNorm: 420464 Take 1 Tablet(s) Oral QD 11/30/19 021 Inactive DX ofloxacin otic drops Accu-Chek Guide test strips RxNorm: USE 1 TO CHECK GLUCOSE 4 TIMES DAILY AND NEEDED 11/15/19 21 023 Inactive Blood Glucose Test strips RxNorm: Use 1 Test Strip QID at PRN 11/05/19 21 023 Inactive E11.42 lisinopril 30 mg tablet RxNorm: 739827 Take 1 Tablet(s) Oral QD 10/30/19 021 Inactive lisinopril 20 mg tablet RxNorm: 657152 Take 1 Tablet(s) Oral QD 10/23/19 021 Inactive lisinopril 20 mg tablet RxNorm: 971555 Take 1 Tablet(s) Oral QD 10/23/19 021 Inactive lisinopril 10 mg tablet RxNorm: 188465 Take 1 Tablet(s) Oral QD 10/02/19 021 Inactive icosapent ethyl 1 gram capsule RxNorm: 7560283 Take 2 Capsule(s) (2 gm) Oral BID with meals 09/12/19 21 022 Inactive Okay to dispense one 2gm tab if you have that available. icosapent ethyl 1 gram capsule RxNorm: 6774354 Take 2 Capsule(s) Oral BID 09/12/19 021 Inactive Okay to dispense one 2gm tab if you have that available. amlodipine 10 mg tablet RxNorm: 493838 Take 1 Tablet(s) Oral QD 09/04/19 022 Inactive aspirin 81 mg tablet,delayed release RxNorm: 463543 Take 1 Tablet(s) Oral QD 09/04/19 21 021 Inactive Levemir FlexTouch U-100 Insulin 100 unit/mL (3 mL) subcutaneous pen RxNorm: 407392 Inject 150 Unit(s) Subcutaneous BID 09/04/19 21 022 Inactive venlafaxine ER 150 mg tablet,extended release 24 hr RxNorm: 862799 Take 1 Tablet(s) Oral QD 09/04/19 21 021 Inactive clotrimazole-betame thasone 1 %-0.05 % topical cream RxNorm: 757648 Apply to rash on red area on left abdomen/chest Topical BID 08/10/19 21 021 Inactive amlodipine 5 mg tablet RxNorm: 435902 Take 1 Tablet(s) Oral QD 07/31/19 21 021 Inactive cephalexin 500 mg tablet RxNorm: 149604 Take 1 Tablet(s) Oral BID BID - Twice Daily 07/31/19 21 021 Inactive Start 08/01/20 pantoprazole 40 mg tablet,delayed release RxNorm: 009858 Take 1 Tablet(s) Oral QAM every morning 07/08/19 21 022 Inactive senna 8.6 mg tablet RxNorm: 238934 Take 1 Tablet(s) Oral QD 07/08/19 21 022 Inactive pravastatin 80 mg tablet RxNorm: 397023 Take 1 Tablet(s) Oral QHS every night at bedtime 07/08/19 022 Inactive clotrimazole 1 % topical cream RxNorm: 677586 Apply to bilateral groin areas Topical BID 07/08/19 21 022 Inactive carbamazepine 200 mg tablet RxNorm: 640993 Take 1 Tablet(s) Oral BID 07/08/19 21 022 Inactive torsemide 20 mg tablet RxNorm: 834228 Take 1 Tablet(s) Oral QD 07/08/19 21 023 Inactive clopidogrel 75 mg tablet RxNorm: 234415 Take 1 Tablet(s) Oral QD 07/08/19 21 021 Inactive Blood Glucose Test strips RxNorm: Use 1 Test Strip QID at PRN 07/08/19 21 021 Inactive E11.42 Novolog Flexpen U-100 Insulin aspart 100 unit/mL (3 mL) subcutaneous RxNorm: 1033762 Administer per sliding scale Milliliter(s) Subcutaneous TID 151-200: 10 u; 201-250: 20 u; 251-300: 30 u; 301-350: 40 u; 351-400: 50 u. 07/08/19 21 022 Inactive lisinopril 5 mg tablet RxNorm: 987314 Take 1 Tablet(s) Oral QD 07/08/19 021 Inactive Novolog Flexpen U-100 Insulin aspart 100 unit/mL (3 mL) subcutaneous RxNorm: 1042157 Inject 85 Unit(s) Subcutaneous TID 07/08/19 022 Inactive metoprolol succinate ER 200 mg tablet,extended release 24 hr RxNorm: 799005 Take 1 Tablet(s) Oral QD 07/08/19 021 Inactive Vitamin D3 25 mcg (1,000 unit) tablet RxNorm: 568552 Take 1 Tablet(s) Oral QD 07/08/19 Inactive isosorbide dinitrate 30 mg tablet RxNorm: 380933 Take 1 Tablet(s) Oral QD 07/08/19 021 Inactive Levemir FlexTouch U-100 Insulin 100 unit/mL (3 mL) subcutaneous pen RxNorm: 148437 Inject 140 Unit(s) Subcutaneous BID 07/08/19 Inactive venlafaxine 75 mg tablet RxNorm: 915628 Take 1 Tablet(s) Oral QD 07/08/19 Inactive acetaminophen 500 mg tablet RxNorm: 206132 Take 1 Tablet(s) Oral TID as needed for headache 06/18/19 Inactive acetaminophen 500 mg tablet RxNorm: 942151 Take 1 Tablet(s) Oral TID as needed for headache 06/18/19 021 Inactive Lyrica 100 mg capsule RxNorm: 943147 Take 1 Capsule(s) Oral QHS every night at bedtime 06/11/19 Inactive Lyrica 50 mg capsule RxNorm: 047552 Take 1 Capsule(s) Oral QAM every morning 06/10/19 21 Inactive hydrocortisone 2.5 % topical cream RxNorm: 664915 Apply to bilateral groin creases Topical BID 05/15/20 20 021 Inactive clotrimazole 1 % topical cream RxNorm: 023823 Apply to bilateral groin areas Topical BID 05/15/20 20 Inactive Lyrica 50 mg capsule RxNorm: 197415 Take 1 Capsule(s) Oral QAM every morning 05/14/20 20 Inactive Lyrica 100 mg capsule RxNorm: 523773 Take 1 Capsule(s) Oral QHS every night [...] Inactive Nystop 100,000 unit/gram topical powder RxNorm: 562497 Apply to abd folds, under breasts and L side of groin Topical BID x 14 days, then BID PRN 04/08/20 20 021 Inactive dx: yeast dermatitis Lyrica 100 mg capsule RxNorm: 376678 Take 1 Capsule(s) Oral QHS every night at bedtime 03/13/20 20 Inactive Lyrica 50 mg capsule RxNorm: 643020 Take 1 Capsule(s) Oral QAM every morning 03/13/20 20 Inactive ketoconazole 2 % shampoo RxNorm: 959348 Apply Topical two times a week with showers 03/11/20 20 Inactive cholecalciferol (vitamin D3) 50 mcg (2,000 unit) tablet RxNorm: 728450 Take 1 Tablet(s) Oral QD 03/11/20 20 11/14/2 021 Inactive Zetia 10 mg tablet RxNorm: 220549 Take 1 Tablet(s) Oral QD 03/07/20 Inactive Zetia 10 mg tablet RxNorm: 056144 Take 1 Tablet(s) Oral QD 03/07/20 Inactive Lyrica 50 mg capsule RxNorm: 242861 Take 1 Capsule(s) Oral QAM every morning 02/15/20 Inactive Lyrica 100 mg capsule RxNorm: 755678 Take 1 Capsule(s) Oral QHS every night at bedtime 02/15/20 Inactive Lyrica 100 mg capsule RxNorm: 000616 Take 1 Capsule(s) Oral QHS every night at bedtime 02/15/20 Inactive Lyrica 50 mg capsule RxNorm: 695192 Take 1 Capsule(s) Oral QAM every morning 02/15/20 Inactive venlafaxine ER 75 mg capsule,extended release 24 hr RxNorm: 685012 Take 3 Capsule(s) Oral QD 06/12/2021 Activepolyethylene glycol 3350 17 gram/dose oral powderRxNorm: 464881Tjbo 17=1 capful Gram(s) Oral BID as needed mix with 4-8oz of keusry3006/12/2021ctive Levemir FlexTouch U-100 Insulin 100 unit/mL (3 mL) subcutaneous penRxNorm: 357465Jwtlnh 80 Unit(s) Subcutaneous BID07/14//Inactiveloperamide 2 mg capsuleRxNorm: 739638Smeq 1 Capsule(s) Oral QID as tynioc5206/12/2021ctive Novolog Flexpen U-100 Insulin aspart 100 unit/mL (3 mL) subcutaneousRxNorm: 4341412Xbobrp 30 Unit(s) Subcutaneous TID with mealsInactive Medication [...] Result Date S ervice Location PHQ-9 PHQ9 08655-8 4 10/07/2021 Unknown PHQ-9 PHQ9 11259-0 4 10/07/2021 Unknown Procedures Procedure Codes Date SYS BP > OR = 140 CPT-4: G8753 10/07/2021 CUI BP > OR = 90 CPT-4: G8755 10/07/2021 ADVNC CARE PLAN IN RCRD CPT-4: 1157F 10/08/19 AMNT PAIN NOTED NONE PRSNT CPT-4: 1126F 10/07 FALL RISK ASSESSMENT DOCD CPT-4: 3288F 2021 PT INELIG NEG SCRN DEPRES SNOMED CT: [id number] CPT-4: M78120010/07/2021TOBACCO 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 NO CHARGECPT-4: O031898 Vital Signs Date Vital 10/07/2021 Blood Pressure 1: 184/91 Code: 8480-6 Heart Rate 1: 74 bpm Code: 8867-4 Respiratory Rate: 16 bpm Temperature: 36.6 (C) / 97.8 (F) Reason For Visit No Reason For Visit data Encounters Encounter Performer Location Location Address Codes Cristiano e ([id number]) DOMICIL VISIT EST PA T Diagnosis: Hyperlipidemia associated with type 2 diabetes mellitus[ICD10: E11.69] Diagnosis: Hypertension associated with diabetes[ICD10: E11.59] Diagnosis: Stage 2 chronic 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[ICD10: E11.22] Diagnosis: Type 2 diabetes mellitus with diabetic polyneuropathy, with long-term current use of insulin[ICD10: E11.42] Diagnosis: History of anemia due to CKD[ICD10: N18.9] Diagnosis: Stage 2 chronic kidney disease[ICD10: N18.2] Diagnosis: Lower extremity edema[ICD10: R60.0] Diagnosis: Preventative health care[ICD10: Z00.00]Tapan Patel [address] [address] [place] [address]WPB-6: 3235297/ Plan of Care Planned Activity Notes Codes Status Date Referral: [facility] WPtel: [address] , [address] [id number] USReferralRecords Kyyzesbr39/08/2023Patient Education: Patient Medication TnzginrAzkwsqfmi27/24/2022atient Education: Influenza VaccineCompleted 2Referral: [facility] WPtel: [address] [id number] HQRhdtndixMdktntklw95/12/2022Referral: General CardiologyReferralCompleted 1Referral: General PsychologistReferralClosed Instructions Comment Date Leonid is a Male being seen living at [facility]. Initial BPS visit 01/2020. PMHx including DMII, CAD w/ 5 stents, Depression, Seizure Disorder and CKD stage 3. He moved into [facility] in 12/2019 but after a hospitalization 05/2021 he moved to the [facility] to have closer nursing attention. Sister Jyotsna involved in his care cell# [phone] Guardian: Don (tapan met in person 09/01/21), now has Lexii (same group as don)Lab Schedule: /September* 10/06/2022 Diabetes A1c 9.1H.??Now established with endo, defer further treatment to them for DM management. SBPs continue to be elevated even though on multiple medication to control BP. refer to data science and iot manager for further eval.?? Chronic Kidney Disease Reviewed labs completed 09/18/21, GFR >60nl, Cr 1.02nl, Hgb 12.2. Continue to monitor cbc and BMP/CMP [id number].?? Edema Continue to encourage daily wearing of compression stockings. Nursing reminded to educate staff on proper application of socks so as not to leave indents. BMP reviewed and w/o concerns. Electrolytes wnl.=.?? Preventative health care BPS AWV completed today. Vaccines due, ordered for nursing to administer.?? .10/07/2021
--- OUTSIDE RECORDS SUMMARY | 2022-11-09 23:25 | XMS_ITS | CCD ---
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 Media Strategist Name Role Phone Tapan Shirley PA-C Primary Care Provider Unavailabl e Tapan Shirley PA-C Chronic Care Management Unavaila ble Summary Purpose DataExchange Insurance Providers Payer name Policy type / Coverage type Covered alliance party ID Effective Begin Date Effective End Date [place] [id number] Unknown Unknown [place] [id number] Unknown Unknown Family history Sister Brittany Suggs [...] Mcfp 09/03/[address]: 9494000 Non-Smoker / No History of Smoking 09/02/[address]: 473987932 No Alcohol Consum ption 09/02/2020 Allergies, Adverse Reactions, Alerts Substance Reaction Codes Entered Date Inactivated Date Status LISINOPRIL RxNorm: 4776258No Inactive DateActiveMetformin KTdCgtsrno05/28/2020No Inactive DateActive Problems Condition Codes Effective Dates [...] heelICD-10: M79.671 ICD-9: 729.503/ctiveCoronary artery disease involving [place] coronary artery of [place] heart, angina presence unspecifiedICD-10: I25.10 ICD-9: 414.010/ctiveDVT (deep venous thrombosis)ICD-10: I82.409 ICD-9: 453.40007/08/2021ctiveEncounter for immunizationICD-10: Z23 ICD-9: V03.8902/ctiveCandidiasis, intertrigoICD-10: B37.2 ICD-9: 112.301/2ActiveDepressionICD-10: F32.9 ICD-9: 33503/ctiveLearning disabilityICD-10: F81.9 ICD-9: 315.212/1ActiveSkin tagICD-10: L91.8 ICD-9: 701.911/ctiveVitamin D deficiencyICD-10: E55.9 ICD-9: 268.911/ctiveCellulitisICD-10: L03.90 ICD-9: 682.910/ctiveCallus of heelICD-10: L84 ICD-9: 60023/ctiveImpacted cerumen, left earICD-10: H61.22 ICD-9: 380.408/ctiveInappropriate sexual [...] Z20.828 ICD-9: V01.7902esolvedHyperhidrosis of palmsICD-10: L74.512 ICD-9: 705.9232ZkobvqMccmcosgXfqmcfp55/28/2020ActiveDiabetes mellitus Type 9Zcdvxom57/28/2020ActiveAnemia in chronic kidney diseaseICD-10: D63.1 02/12/2020ResolvedHyperlipidemia, unspecifiedICD-10: E78.509Resolved Medications Medication Codes Instructions Start Date Stop Date Status Fill Instructions pregabalin 50 mg capsule RxNorm: 850968 Take 1 Capsule(s) Oral QAM every morning 10/16/19 22 022 Inactive pregabalin 50 mg capsule RxNorm: 042165 Take 1 Capsule(s) Oral QAM every morning 10/16/19 22 022 Inactive pregabalin 50 mg capsule RxNorm: 031665 1 Capsule(s) Oral QAM every morning 10/15/19 022 Inactive Shingrix (PF) 50 mcg/0.5 mL intramuscular suspension, kit RxNorm: 3226775 Administer 1/2 Milliliter(s) Intramuscular one time Nursing please administer upon arrival and once administered 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, cook enchilada, 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 10/09/19 22 022 Inactive shingrix step 1 Shingrix (PF) 50 mcg/0.5 mL intramuscular suspension, kit RxNorm: 3138873 Administer 1/2 Milliliter(s) Intramuscular one time Nursing please administer upon arrival and once administered 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, cook enchilada, 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 10/09/19 22 022 Inactive shingrix step 1 Novolog Flexpen U-100 Insulin aspart 100 unit/mL (3 mL) subcutaneous RxNorm: 7917849 Inject 10 Unit(s) Subcutaneous QHS every night at bedtime with nighttime snack 10/08/19 22 022 Inactive Novolog Flexpen U-100 Insulin aspart 100 unit/mL (3 mL) subcutaneous RxNorm: 5444350 Inject 36 Unit(s) Subcutaneous TID in addition to sliding scale 10/08/19 22 022 Inactive cholecalciferol (vitamin D3) 1,250 mcg (50,000 unit) capsule RxNorm: 303222 Take 1 Capsule(s) Oral QW once a week 10/08/19 No Stop Date Active tetanus,diphtheria toxoid ped (PF) 5 Lf unit-25 Lf unit/0.5 mL IM susp RxNorm: 28 Inject 1 Intramuscular once ADMINISTER PER CDC GUIDELINES 10/08/19 022 Inactive Tdap dx: tetanus prophylaxis, please dispense syringe and needle tetanus,diphtheria toxoid ped (PF) 5 Lf unit-25 Lf unit/0.5 mL IM susp RxNorm: 28 Inject 1 Intramuscular once ADMINISTER PER CDC GUIDELINES 10/08/19 22 Active Tdap dx: tetanus prophylaxis, please dispense syringe and needle Shingrix (PF) 50 mcg/0.5 mL intramuscular suspension, kit RxNorm: 7601912 ADMINISTER 2-DOSE SERIES PER CDC GUIDELINES 10/08/19 22 Active Shingrix (PF) 50 mcg/0.5 mL intramuscular suspension, kit RxNorm: 7383881 ADMINISTER 2-DOSE SERIES PER CDC GUIDELINES 10/08/19 22 Inactive Novofine Autocover 30 gauge x 1/3 needle RxNorm: Use 1 Miscellaneous UD as directed Use 1 needle as directed to administer insulin 5 times a day Dx:E11.42. 10/03/19 22 Inactive ok to substitute with any covered alternative pen needle benzoyl peroxide 10 % topical cleanser RxNorm: 622839 Apply 1 Application Topical QD apply to face, wash rinse and dry once daily (may change to QOD if drying) 08/19/19 22 022 Inactive (%covered by insurance) #60ml refill 11 dx: acne Lyrica 100 mg capsule RxNorm: 831547 Take 1 Capsule(s) Oral QHS every night at bedtime Take 1 capsule by mouth once daily at bedtime 08/19/19 22 022 Inactive benzoyl peroxide 10 % topical cleanser RxNorm: 543006 Apply 1 Application Topical QD apply to face, wash rinse and dry once daily (may change to QOD if drying) 08/19/19 22 022 Inactive (%covered by insurance) #60ml refill 11 dx: acne benzoyl peroxide 10 % topical cleanser RxNorm: 146737 Apply 1 Application Topical QD apply to face, wash rinse and dry once daily (may change to QOD if drying) 08/19/19 22 022 Inactive (%covered by insurance) #60ml refill 11 dx: acne Lyrica 50 mg capsule RxNorm: 615765 Take 1 Capsule(s) Oral QAM every morning Take 1 capsule by mouth once daily 08/19/19 22 Inactive benzoyl peroxide 10 % topical cleanser RxNorm: 027670 Apply 1 Application Topical QD apply to face, wash rinse and dry once daily (may change to QOD if drying) 08/19/19 22 Inactive (%covered by insurance) #60ml refill 11 dx: acne Lyrica 100 mg capsule RxNorm: 243283 Take 1 Capsule(s) Oral QHS every night at bedtime Take 1 capsule by mouth once daily at bedtime 08/16/19 22 022 Inactive Lyrica 50 mg capsule RxNorm: 143086 Take 1 Capsule(s) Oral QAM every morning Take 1 capsule by mouth once daily 08/16/19 22 022 Inactive Levemir FlexTouch U-100 Insulin 100 unit/mL (3 mL) subcutaneous pen RxNorm: 013034 Inject 86 Unit(s) Subcutaneous BID 08/05/19 22 022 Inactive d/c 83units BID Lyrica 100 mg capsule RxNorm: 208423 Take 1 Capsule(s) Oral QHS every night at bedtime Take 1 capsule by mouth once daily at bedtime 07/14/19 22 022 Inactive Lyrica 50 mg capsule RxNorm: 407484 Take 1 Capsule(s) Oral QAM every morning Take 1 capsule by mouth once daily 07/14/19 22 022 Inactive Levemir FlexTouch U-100 Insulin 100 unit/mL (3 mL) subcutaneous pen RxNorm: 228594 Inject 83 Unit(s) Subcutaneous BID 07/08/19 22 [...] to administer insulin 5 times a day Dx:E11.. 06/05/19 022 Inactive ok to substitute with [...] test strip hydralazine 50 mg tablet RxNorm: 643146 Take 1 Tablet(s) Oral QID 05/05/20 21 022 Inactive isosorbide mononitrate ER 30 mg tablet,extended release 24 hr RxNorm: 145540 Take 1 Tablet(s) Oral QD 05/05/20 21 No Stop Date Active venlafaxine ER 225 mg tablet,extended release 24 hr RxNorm: 394643 Take 1 Tablet(s) Oral QD 05/05/20 21 021 Inactive venlafaxine ER 225 mg tablet,extended release 24 hr RxNorm: 718743 Take 1 Tablet(s) Oral QD 05/05/20 21 022 Inactive hydralazine 50 mg tablet RxNorm: 342938 Take 1 Tablet(s) Oral QID 05/05/20 21 021 Inactive aspirin 81 mg tablet,delayed release RxNorm: 910502 Take 1 Tablet(s) Oral QD 03/31/20 21 022 Inactive Zetia 10 mg tablet RxNorm: 921870 Take 1 Tablet(s) Oral QD 03/31/20 Inactive Vitamin D2 1,250 mcg (50,000 unit) capsule RxNorm: 8127441 Take 1 Capsule(s) Oral QW once a week x 12 weeks 03/31/20 022 Inactive Vitamin D2 1,250 mcg (50,000 unit) capsule RxNorm: 9988345 Take 1 Capsule(s) Oral QW once a week 03/31/20 Inactive Zetia 10 mg tablet RxNorm: 405561 Take 1 Tablet(s) Oral QD 03/31/20 Inactive hydralazine 25 mg tablet RxNorm: 517688 Take 1 Tablet(s) Oral QID 03/31/20 021 Inactive hydralazine 25 mg tablet RxNorm: 050320 Take 1 Tablet(s) Oral QID 03/31/20 021 Inactive hydralazine 10 mg tablet RxNorm: 485319 Take 1 Tablet(s) Oral QID 03/03/20 021 Inactive cephalexin 500 mg tablet RxNorm: 907066 Take 1 Tablet(s) Oral QID 02/27/20 021 Inactive cephalexin 500 mg tablet RxNorm: 724070 Take 1 Tablet(s) Oral QID 02/27/20 021 Inactive lisinopril 40 mg tablet RxNorm: 795515 Take 1 Tablet(s) Oral QD 02/11/20 023 Inactive Eliquis 5 mg tablet RxNorm: 0917643 Take 1 Tablet(s) Oral BID 01/05/20 022 Inactive Eliquis 5 mg tablet RxNorm: 5862224 Take 2 Tablet(s) Oral QD 01/01/20 021 Inactive Lyrica 50 mg capsule RxNorm: 203277 Take 1 Capsule(s) Oral QAM every morning 12/24/19 21 021 Inactive Lyrica 100 mg capsule RxNorm: 964710 Take 1 Capsule(s) Oral QHS every night at bedtime 12/24/19 21 021 Inactive clotrimazole 1 % topical cream RxNorm: 980489 Apply to right foot and toes Topical BID 12/04/19 21 023 Inactive metoprolol succinate ER 200 mg tablet,extended release 24 hr RxNorm: 959333 Take 1 Tablet(s) Oral QD 12/04/19 21 023 Inactive ciprofloxacin 500 mg tablet RxNorm: 943276 Take 1 Tablet(s) Oral QD 11/30/19 21 021 Inactive DX ofloxacin otic drops Accu-Chek Guide test strips RxNorm: USE 1 TO CHECK GLUCOSE 4 TIMES DAILY AND NEEDED 11/15/19 023 Inactive Blood Glucose Test strips RxNorm: Use 1 Test Strip QID at PRN 11/05/19 21 023 Inactive E11.42 lisinopril 30 mg tablet RxNorm: 506427 Take 1 Tablet(s) Oral QD 10/30/19 021 Inactive lisinopril 20 mg tablet RxNorm: 994063 Take 1 Tablet(s) Oral QD 10/23/19 021 Inactive lisinopril 20 mg tablet RxNorm: 655603 Take 1 Tablet(s) Oral QD 10/23/19 021 Inactive lisinopril 10 mg tablet RxNorm: 826756 Take 1 Tablet(s) Oral QD 10/02/19 21 021 Inactive icosapent ethyl 1 gram capsule RxNorm: 9598091 Take 2 Capsule(s) (2 gm) Oral BID with meals 09/12/19 21 022 Inactive Okay to dispense one 2gm tab if you have that available. icosapent ethyl 1 gram capsule RxNorm: 6806441 Take 2 Capsule(s) Oral BID 09/12/19 21 021 Inactive Okay to dispense one 2gm tab if you have that available. amlodipine 10 mg tablet RxNorm: 459630 Take 1 Tablet(s) Oral QD 09/04/19 21 022 Inactive aspirin 81 mg tablet,delayed release RxNorm: 654980 Take 1 Tablet(s) Oral QD 09/04/19 21 021 Inactive Levemir FlexTouch U-100 Insulin 100 unit/mL (3 mL) subcutaneous pen RxNorm: 632087 Inject 150 Unit(s) Subcutaneous BID 09/04/19 21 022 Inactive venlafaxine ER 150 mg tablet,extended release 24 hr RxNorm: 728845 Take 1 Tablet(s) Oral QD 09/04/19 21 021 Inactive clotrimazole-betame thasone 1 %-0.05 % topical cream RxNorm: 309172 Apply to rash on red area on left abdomen/chest Topical BID 08/10/19 21 021 Inactive amlodipine 5 mg tablet RxNorm: 330063 Take 1 Tablet(s) Oral QD 07/31/19 21 Inactive cephalexin 500 mg tablet RxNorm: 388123 Take 1 Tablet(s) Oral BID BID - Twice Daily 07/31/19 21 021 Inactive Start 08/01/20 pantoprazole 40 mg tablet,delayed release RxNorm: 170105 Take 1 Tablet(s) Oral QAM every morning 07/08/19 21 022 Inactive senna 8.6 mg tablet RxNorm: 624084 Take 1 Tablet(s) Oral QD 07/08/19 022 Inactive pravastatin 80 mg tablet RxNorm: 923514 Take 1 Tablet(s) Oral QHS every night at bedtime 07/08/19 022 Inactive clotrimazole 1 % topical cream RxNorm: 588429 Apply to bilateral groin areas Topical BID 07/08/19 21 022 Inactive carbamazepine 200 mg tablet RxNorm: 720373 Take 1 Tablet(s) Oral BID 07/08/19 21 022 Inactive torsemide 20 mg tablet RxNorm: 474906 Take 1 Tablet(s) Oral QD 07/08/19 21 023 Inactive clopidogrel 75 mg tablet RxNorm: 772429 Take 1 Tablet(s) Oral QD 07/08/19 21 021 Inactive Blood Glucose Test strips RxNorm: Use 1 Test Strip QID at PRN 07/08/19 21 021 Inactive E11.42 Novolog Flexpen U-100 Insulin aspart 100 unit/mL (3 mL) subcutaneous RxNorm: 3023478 Administer per sliding scale Milliliter(s) Subcutaneous TID 151-200: 10 u; 201-250: 20 u; 251-300: 30 u; 301-350: 40 u; 351-400: 50 u. 07/08/19 022 Inactive lisinopril 5 mg tablet RxNorm: 932143 Take 1 Tablet(s) Oral QD 07/08/19 Inactive Novolog Flexpen U-100 Insulin aspart 100 unit/mL (3 mL) subcutaneous RxNorm: 4023183 Inject 85 Unit(s) Subcutaneous TID 07/08/19 Inactive metoprolol succinate ER 200 mg tablet,extended release 24 hr RxNorm: 532192 Take 1 Tablet(s) Oral QD 07/08/19 Inactive Vitamin D3 25 mcg (1,000 unit) tablet RxNorm: 145314 Take 1 Tablet(s) Oral QD 07/08/19 Inactive isosorbide dinitrate 30 mg tablet RxNorm: 568174 Take 1 Tablet(s) Oral QD 07/08/19 Inactive Levemir FlexTouch U-100 Insulin 100 unit/mL (3 mL) subcutaneous pen RxNorm: 789500 Inject 140 Unit(s) Subcutaneous BID 07/08/19 Inactive venlafaxine 75 mg tablet RxNorm: 726972 Take 1 Tablet(s) Oral QD 07/08/19 Inactive acetaminophen 500 mg tablet RxNorm: 060399 Take 1 Tablet(s) Oral TID as needed for headache 06/18/19 Inactive acetaminophen 500 mg tablet RxNorm: 753679 Take 1 Tablet(s) Oral TID as needed for headache 06/18/19 Inactive Lyrica 100 mg capsule RxNorm: 113581 Take 1 Capsule(s) Oral QHS every night at bedtime 06/11/19 Inactive Lyrica 50 mg capsule RxNorm: 910846 Take 1 Capsule(s) Oral QAM every morning 06/10/19 21 021 Inactive hydrocortisone 2.5 % topical cream RxNorm: 935627 Apply to bilateral groin creases Topical BID 05/15/20 20 021 Inactive clotrimazole 1 % topical cream RxNorm: 950893 Apply to bilateral groin areas Topical BID 05/15/20 20 021 Inactive Lyrica 50 mg capsule RxNorm: 426297 Take 1 Capsule(s) Oral QAM every morning 05/14/20 20 020 Inactive Lyrica 100 mg capsule RxNorm: 573470 Take 1 Capsule(s) Oral QHS every night [...] Inactive Nystop 100,000 unit/gram topical powder RxNorm: 478364 Apply to abd folds, under breasts and L side of groin Topical BID x 14 days, then BID PRN 04/08/20 20 021 Inactive dx: yeast dermatitis Lyrica 100 mg capsule RxNorm: 424033 Take 1 Capsule(s) Oral QHS every night at bedtime 03/13/20 20 020 Inactive Lyrica 50 mg capsule RxNorm: 647892 Take 1 Capsule(s) Oral QAM every morning 03/13/20 20 020 Inactive ketoconazole 2 % shampoo RxNorm: 047403 Apply Topical two times a week with showers 03/11/20 Inactive cholecalciferol (vitamin D3) 50 mcg (2,000 unit) tablet RxNorm: 776542 Take 1 Tablet(s) Oral QD 03/11/20 Inactive Zetia 10 mg tablet RxNorm: 565248 Take 1 Tablet(s) Oral QD 03/07/20 Inactive Zetia 10 mg tablet RxNorm: 009342 Take 1 Tablet(s) Oral QD 03/07/20 Inactive Lyrica 50 mg capsule RxNorm: 826390 Take 1 Capsule(s) Oral QAM every morning 02/15/20 Inactive Lyrica 100 mg capsule RxNorm: 878538 Take 1 Capsule(s) Oral QHS every night at bedtime 02/15/20 Inactive Lyrica 100 mg capsule RxNorm: 787844 Take 1 Capsule(s) Oral QHS every night at bedtime 02/15/20 Inactive Lyrica 50 mg capsule RxNorm: 201567 Take 1 Capsule(s) Oral QAM every morning 02/15/20 Inactive venlafaxine ER 75 mg capsule,extended release 24 hr RxNorm: 965474 Take 3 Capsule(s) Oral QD 06/12/2021 Activepolyethylene glycol 3350 17 gram/dose oral powderRxNorm: 437249Rswx 17=1 capful Gram(s) Oral BID as needed mix with 4-8oz of rbimye8606/12/2021ctive Levemir FlexTouch U-100 Insulin 100 unit/mL (3 mL) subcutaneous penRxNorm: 146002Cwyieg 80 Unit(s) Subcutaneous BID07/14//Inactiveloperamide 2 mg capsuleRxNorm: 953449Rnlv 1 Capsule(s) Oral QID as xelfec5806/12/2021ctive Novolog Flexpen U-100 Insulin aspart 100 unit/mL (3 mL) subcutaneousRxNorm: 5744508Webedg 30 Unit(s) Subcutaneous TID with mealsInactive Medication [...] Status Date Referral: [facility] WPtel: [address] , [address] [id number] USReferralRecords Ngrkgmug06/08/2023Referral: [facility] WPtel: [address] [id number]/12/2022Referral: General CardiologyReferralCompleted 1Referral: General PsychologistReferralClosed Instructions Comment Date Leonid is a Male being seen living at [facility]. Initial [facility] visit 01/2020. PMHx including DMII, CAD w/ 5 stents, Depression, Seizure Disorder and CKD stage 3. He moved into [facility] in 12/2019 but after a hospitalization 05/2021 he moved to the [facility] to have closer nursing attention. Sister Jyotsna involved in his care cell# [phone] Guardian: Don (tapan met in person 09/01/21), now has Lexii (same group as don)Lab Schedule: * 10/06/2022
--- OUTSIDE RECORDS SUMMARY | 2022-11-09 23:25 | XMS_ITS | CCD ---
Author Name Tapan Shirley PA-C Address [address] [place] [address] Phone Organization [facility] Phone Care Team Providers Care Extension Associate Name Role Phone Tapan Shirley PA-C Primary Care Provider Unavailabl e Tapan Shirley PA-C Chronic Care Management Unavaila ble Summary Purpose DataExchange Insurance Providers Payer name Policy type / Coverage type Covered constitution party ID Effective Begin Date Effective End Date Medicare [place] Medicare Part B [id number] Unknown Unknown Medicaid [place] Medicare Part B [id number] Unknown Unknown Family history Sister Brittany Suggs [...] Unknown Mcc 09/03/[address]: 9419510 Non-Smoker / No History of Smoking 09/02/[address]: 578964983 No Alcohol Consum ption 09/02/2020 Allergies, Adverse Reactions, Alerts Substance Reaction Codes Entered Date Inactivated Date Status LISINOPRIL RxNorm: 0530884No Inactive DateActiveMetformin TNcSpbvizf56/28/2020No Inactive DateActive Problems Condition Codes Effective Dates Condition St atus Candidiasis, intertrigo ICD-10: B37.2 ICD-9: 112.3062ActiveGout due to renal impairmentICD-10: M10.30 ICD-9: 274.10062ActiveHyperlipidemia associated with type 2 diabetes mellitusICD-10: E11.69 ICD-9: 250.80062ActiveHypertension associated with diabetesICD-10: E11.59 ICD-9: 250.8006/ctiveInappropriate sexual behaviorICD-10: Z72.89 ICD-9: 312.8906/ctiveOnychogryposisICD-10: L60.2 ICD-9: 703.806/ctivePreventative health careICD-10: Z00.00 ICD-9: V70.006/ctiveSeizure disorderICD-10: G40.909 ICD-9: 345.9006/ctiveStage 2 chronic 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ICD-10: E11.22 ICD-9: 250.4006/ctiveType 2 diabetes mellitus with diabetic polyneuropathy, with long-term current use of insulinICD-10: E11.42 ICD-9: 250.6006/ctiveHistory of anemia due to CKDICD-10: N18.9 ICD-9: 585.905/ctiveLower extremity edemaICD-10: R60.0 ICD-9: 782.305/ctiveStage 2 chronic kidney diseaseICD-10: N18.2 ICD-9: 585.205/ctiveAmputated toe of right footICD-10: S98.131A ICD-9: 895.004/ctiveLong term (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 insulinICD-10: Z79.4 09/01/2021ctiveMuscular painICD-10: M79.10 ICD-9: 729.103/ctivePain of right heelICD-10: M79.671 ICD-9: 729.503/ctiveCoronary artery disease involving [place] coronary artery of [place] heart, angina presence unspecifiedICD-10: I25.10 ICD-9: 414.0102/ctiveDVT (deep venous thrombosis)ICD-10: I82.409 ICD-9: 453.4002/ctiveEncounter for immunizationICD-10: Z23 ICD-9: V03.8902/ctiveDepressionICD-10: F32.9 ICD-9: 50928/ctiveLearning disabilityICD-10: F81.9 ICD-9: 315.212/ctiveSkin tagICD-10: L91.8 ICD-9: 701.911/ctiveVitamin D deficiencyICD-10: E55.9 ICD-9: 268.911/ctiveCellulitisICD-10: L03.90 ICD-9: 682.910/ctiveCallus of heelICD-10: L84 ICD-9: 66956/ctiveImpacted cerumen, left earICD-10: H61.22 ICD-9: 380.408/ctiveContact with and (suspected) exposure to covid-19 ICD-10: Z20.822 ICD-9: V01.7908esolvedOther infective acute otitis externa of left ear ICD-10: H60.392 ICD-9: 380.1008/esolvedScrotal skin lesionICD-10: N50.9 ICD-9: 608.908/esolvedTinea pedisICD-10: B35.3 ICD-9: 110.408/esolvedSecondary hypertensionICD-10: I15.9 ICD-9: 405.9906/ctiveAnemia due to stage 3b chronic kidney diseaseICD- 10: N18.32 ICD-9: 285.2105esolvedChronic kidney disease, stage 3 unspecifiedICD- 10: N18.3004esolvedDandruff in adultICD-10: L21.0 ICD-9: 690.1802ctiveContact with and (suspected) exposure to other viral communicable diseasesICD-10: Z20.828 ICD-9: V01.7902esolvedHyperhidrosis of palmsICD-10: L74.512 ICD-9: 705.0730UsuelrPqwojkhvLgwyive85/28/2020ActiveDiabetes mellitus Type 2Nnborfj66/28/2020ActiveAnemia in chronic kidney diseaseICD-10: D63.1 02/12/2020ResolvedHyperlipidemia, unspecifiedICD-10: E78.Resolved Medications Medication Codes Instructions Start Date Stop Date Status Fill Instructions pregabalin 50 mg capsule RxNorm: 165567 Take 1 Capsule(s) Oral QAM every morning 11/12/19 22 022 Inactive tetanus-diphtheria toxoids-Td 2 Lf unit-2 Lf unit/0.5 mL IM suspension RxNorm: 139 Take 0.5 Miscellaneous Intramuscular 11/12/19 22 022 Inactive need tdap - nursing to administer upon arrival pregabalin 50 mg capsule RxNorm: 851583 Take 1 Capsule(s) Oral QAM every morning 10/16/19 22 022 Inactive pregabalin 50 mg capsule RxNorm: 269502 Take 1 Capsule(s) Oral QAM every morning 10/16/19 22 022 Inactive pregabalin 50 mg capsule RxNorm: 115339 1 Capsule(s) Oral QAM every morning 10/15/19 22 022 Inactive Shingrix (PF) 50 mcg/0.5 mL intramuscular suspension, kit RxNorm: 7443170 Administer 1/2 Milliliter(s) Intramuscular one time Nursing please administer upon arrival and once administered 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, package delivery room service runner, 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 10/09/19 22 022 Inactive shingrix step 1 Shingrix (PF) 50 mcg/0.5 mL intramuscular suspension, kit RxNorm: 6988765 Administer 1/2 Milliliter(s) Intramuscular one time Nursing please administer upon arrival and once administered 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, package delivery room service runner, 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 10/09/19 22 022 Inactive shingrix step 1 Novolog Flexpen U-100 Insulin aspart 100 unit/mL (3 mL) subcutaneous RxNorm: 6734436 Inject 10 Unit(s) Subcutaneous QHS every night at bedtime with nighttime snack 10/08/19 22 Inactive Novolog Flexpen U-100 Insulin aspart 100 unit/mL (3 mL) subcutaneous RxNorm: 4205525 Inject 36 Unit(s) Subcutaneous TID in addition to sliding scale 10/08/19 Inactive cholecalciferol (vitamin D3) 1,250 mcg (50,000 unit) capsule RxNorm: 922567 Take 1 Capsule(s) Oral QW once a [...] 50 mcg/0.5 mL intramuscular suspension, kit RxNorm: 9341263 ADMINISTER 2-DOSE SERIES PER CDC GUIDELINES 10/08/19 22 Active Shingrix (PF) 50 mcg/0.5 mL intramuscular suspension, kit RxNorm: 6978943 ADMINISTER 2-DOSE SERIES PER CDC GUIDELINES 10/08/19 22 Inactive Novofine Autocover 30 gauge x 1/3 needle RxNorm: Use 1 Miscellaneous UD as directed Use 1 needle as directed to administer insulin 5 times a day Dx:E11.42. 10/03/19 Inactive ok to substitute with any covered alternative pen needle benzoyl peroxide 10 % topical cleanser RxNorm: 899956 Apply 1 Application Topical QD apply to face, wash rinse and dry once daily (may change to QOD if drying) 08/19/19 Inactive (%covered by insurance) #60ml refill 11 dx: acne Lyrica 100 mg capsule RxNorm: 860710 Take 1 Capsule(s) Oral QHS every night at bedtime Take 1 capsule by mouth once daily at bedtime 04/04/ Inactive benzoyl peroxide 10 % topical cleanser RxNorm: 878675 Apply 1 Application Topical QD apply to face, wash rinse and dry once daily (may change to QOD if drying) 08/19/19 22 022 Inactive (%covered by insurance) #60ml refill 11 dx: acne benzoyl peroxide 10 % topical cleanser RxNorm: 556272 Apply 1 Application Topical QD apply to face, wash rinse and dry once daily (may change to QOD if drying) 08/19/19 22 022 Inactive (%covered by insurance) #60ml refill 11 dx: acne Lyrica 50 mg capsule RxNorm: 756714 Take 1 Capsule(s) Oral QAM every morning Take 1 capsule by mouth once daily 08/19/19 22 Inactive benzoyl peroxide 10 % topical cleanser RxNorm: 015045 Apply 1 Application Topical QD apply to face, wash rinse and dry once daily (may change to QOD if drying) 08/19/19 22 022 Inactive (%covered by insurance) #60ml refill 11 dx: acne Lyrica 100 mg capsule RxNorm: 900737 Take 1 Capsule(s) Oral QHS every night at bedtime Take 1 capsule by mouth once daily at bedtime 08/16/19 Inactive Lyrica 50 mg capsule RxNorm: 568638 Take 1 Capsule(s) Oral QAM every morning Take 1 capsule by mouth once daily 08/16/19 Inactive Levemir FlexTouch U-100 Insulin 100 unit/mL (3 mL) subcutaneous pen RxNorm: 786009 Inject 86 Unit(s) Subcutaneous BID 08/05/19 22 Inactive d/c 83units BID Lyrica 100 mg capsule RxNorm: 752498 Take 1 Capsule(s) Oral QHS every night at bedtime Take 1 capsule by mouth once daily at bedtime 07/14/19 22 022 Inactive Lyrica 50 mg capsule RxNorm: 879488 Take 1 Capsule(s) Oral QAM every morning Take 1 capsule by mouth once daily 07/14/19 22 022 Inactive Levemir FlexTouch U-100 Insulin 100 unit/mL (3 mL) subcutaneous pen RxNorm: 254885 Inject 83 Unit(s) Subcutaneous BID 07/08/19 22 [...] test strip hydralazine 50 mg tablet RxNorm: 261618 Take 1 Tablet(s) Oral QID 05/05/20 21 022 Inactive isosorbide mononitrate ER 30 mg tablet,extended release 24 hr RxNorm: 510847 Take 1 Tablet(s) Oral QD 05/05/20 No Stop Date Active venlafaxine ER 225 mg tablet,extended release 24 hr RxNorm: 356279 Take 1 Tablet(s) Oral QD 05/05/20 21 021 Inactive venlafaxine ER 225 mg tablet,extended release 24 hr RxNorm: 042143 Take 1 Tablet(s) Oral QD 05/05/20 022 Inactive hydralazine 50 mg tablet RxNorm: 299045 Take 1 Tablet(s) Oral QID 05/05/20 21 Inactive aspirin 81 mg tablet,delayed release RxNorm: 667597 Take 1 Tablet(s) Oral QD 03/31/20 022 Inactive Zetia 10 mg tablet RxNorm: 050993 Take 1 Tablet(s) Oral QD 03/31/20 Inactive Vitamin D2 1,250 mcg (50,000 unit) capsule RxNorm: 8232483 Take 1 Capsule(s) Oral QW once a week x 12 weeks 03/31/20 Inactive Vitamin D2 1,250 mcg (50,000 unit) capsule RxNorm: 8733181 Take 1 Capsule(s) Oral QW once a week 03/31/20 Inactive Zetia 10 mg tablet RxNorm: 518427 Take 1 Tablet(s) Oral QD 03/31/20 Inactive hydralazine 25 mg tablet RxNorm: 379489 Take 1 Tablet(s) Oral QID 03/31/20 021 Inactive hydralazine 25 mg tablet RxNorm: 952199 Take 1 Tablet(s) Oral QID 03/31/20 021 Inactive hydralazine 10 mg tablet RxNorm: 787063 Take 1 Tablet(s) Oral QID 03/03/20 021 Inactive cephalexin 500 mg tablet RxNorm: 020664 Take 1 Tablet(s) Oral QID 02/27/20 021 Inactive cephalexin 500 mg tablet RxNorm: 874423 Take 1 Tablet(s) Oral QID 02/27/20 21 021 Inactive lisinopril 40 mg tablet RxNorm: 868082 Take 1 Tablet(s) Oral QD 09/27 023 Inactive Eliquis 5 mg tablet RxNorm: 8655142 Take 1 Tablet(s) Oral BID 01/05/20 21 022 Inactive Eliquis 5 mg tablet RxNorm: 0833333 Take 2 Tablet(s) Oral QD 01/01/20 21 021 Inactive Lyrica 50 mg capsule RxNorm: 561559 Take 1 Capsule(s) Oral QAM every morning 12/24/19 021 Inactive Lyrica 100 mg capsule RxNorm: 384716 Take 1 Capsule(s) Oral QHS every night at bedtime 12/24/19 021 Inactive clotrimazole 1 % topical cream RxNorm: 742372 Apply to right foot and toes Topical BID 12/04/19 21 023 Inactive metoprolol succinate ER 200 mg tablet,extended release 24 hr RxNorm: 196050 Take 1 Tablet(s) Oral QD 12/04/19 023 Inactive ciprofloxacin 500 mg tablet RxNorm: 802789 Take 1 Tablet(s) Oral QD 11/30/19 021 Inactive DX ofloxacin otic drops Accu-Chek Guide test strips RxNorm: USE 1 TO CHECK GLUCOSE 4 TIMES DAILY AND NEEDED 11/15/19 21 023 Inactive Blood Glucose Test strips RxNorm: Use 1 Test Strip QID at PRN 11/05/19 21 023 Inactive E11.42 lisinopril 30 mg tablet RxNorm: 358179 Take 1 Tablet(s) Oral QD 10/30/19 021 Inactive lisinopril 20 mg tablet RxNorm: 801046 Take 1 Tablet(s) Oral QD 10/23/19 021 Inactive lisinopril 20 mg tablet RxNorm: 987353 Take 1 Tablet(s) Oral QD 10/23/19 21 021 Inactive lisinopril 10 mg tablet RxNorm: 610635 Take 1 Tablet(s) Oral QD 10/02/19 21 021 Inactive icosapent ethyl 1 gram capsule RxNorm: 1579632 Take 2 Capsule(s) (2 gm) Oral BID with meals 09/12/19 022 Inactive Okay to dispense one 2gm tab if you have that available. icosapent ethyl 1 gram capsule RxNorm: 5170800 Take 2 Capsule(s) Oral BID 09/12/19 21 021 Inactive Okay to dispense one 2gm tab if you have that available. amlodipine 10 mg tablet RxNorm: 981255 Take 1 Tablet(s) Oral QD 09/04/19 022 Inactive aspirin 81 mg tablet,delayed release RxNorm: 314346 Take 1 Tablet(s) Oral QD 09/04/19 21 021 Inactive Levemir FlexTouch U-100 Insulin 100 unit/mL (3 mL) subcutaneous pen RxNorm: 653608 Inject 150 Unit(s) Subcutaneous BID 09/04/19 21 022 Inactive venlafaxine ER 150 mg tablet,extended release 24 hr RxNorm: 624934 Take 1 Tablet(s) Oral QD 09/04/19 021 Inactive clotrimazole-betame thasone 1 %-0.05 % topical cream RxNorm: 417179 Apply to rash on red area on left abdomen/chest Topical BID 08/10/19 Inactive amlodipine 5 mg tablet RxNorm: 236501 Take 1 Tablet(s) Oral QD 07/31/19 021 Inactive cephalexin 500 mg tablet RxNorm: 531507 Take 1 Tablet(s) Oral BID BID - Twice Daily 07/31/19 021 Inactive Start 08/01/20 pantoprazole 40 mg tablet,delayed release RxNorm: 766924 Take 1 Tablet(s) Oral QAM every morning 07/08/19 022 Inactive senna 8.6 mg tablet RxNorm: 408921 Take 1 Tablet(s) Oral QD 07/08/19 022 Inactive pravastatin 80 mg tablet RxNorm: 767864 Take 1 Tablet(s) Oral QHS every night at bedtime 07/08/19 022 Inactive clotrimazole 1 % topical cream RxNorm: 113851 Apply to bilateral groin areas Topical BID 07/08/19 21 022 Inactive carbamazepine 200 mg tablet RxNorm: 371093 Take 1 Tablet(s) Oral BID 07/08/19 21 022 Inactive torsemide 20 mg tablet RxNorm: 413241 Take 1 Tablet(s) Oral QD 07/08/19 21 023 Inactive clopidogrel 75 mg tablet RxNorm: 860778 Take 1 Tablet(s) Oral QD 07/08/19 21 021 Inactive Blood Glucose Test strips RxNorm: Use 1 Test Strip QID at PRN 07/08/19 Inactive E11.42 Novolog Flexpen U-100 Insulin aspart 100 unit/mL (3 mL) subcutaneous RxNorm: 7739521 Administer per sliding scale Milliliter(s) Subcutaneous TID 151-200: 10 u; 201-250: 20 u; 251-300: 30 u; 301-350: 40 u; 351-400: 50 u. 07/08/19 022 Inactive lisinopril 5 mg tablet RxNorm: 427962 Take 1 Tablet(s) Oral QD 07/08/19 021 Inactive Novolog Flexpen U-100 Insulin aspart 100 unit/mL (3 mL) subcutaneous RxNorm: 4347129 Inject 85 Unit(s) Subcutaneous TID 07/08/19 022 Inactive metoprolol succinate ER 200 mg tablet,extended release 24 hr RxNorm: 361581 Take 1 Tablet(s) Oral QD 07/08/19 21 021 Inactive Vitamin D3 25 mcg (1,000 unit) tablet RxNorm: 153364 Take 1 Tablet(s) Oral QD 07/08/19 021 Inactive isosorbide dinitrate 30 mg tablet RxNorm: 003492 Take 1 Tablet(s) Oral QD 07/08/19 21 021 Inactive Levemir FlexTouch U-100 Insulin 100 unit/mL (3 mL) subcutaneous pen RxNorm: 353394 Inject 140 Unit(s) Subcutaneous BID 07/08/19 21 021 Inactive venlafaxine 75 mg tablet RxNorm: 864712 Take 1 Tablet(s) Oral QD 07/08/19 21 021 Inactive acetaminophen 500 mg tablet RxNorm: 050877 Take 1 Tablet(s) Oral TID as needed for headache 06/18/19 21 021 Inactive acetaminophen 500 mg tablet RxNorm: 270093 Take 1 Tablet(s) Oral TID as needed for headache 06/18/19 21 021 Inactive Lyrica 100 mg capsule RxNorm: 123918 Take 1 Capsule(s) Oral QHS every night at bedtime 06/11/19 21 021 Inactive Lyrica 50 mg capsule RxNorm: 443555 Take 1 Capsule(s) Oral QAM every morning 06/10/19 21 021 Inactive hydrocortisone 2.5 % topical cream RxNorm: 847040 Apply to bilateral groin creases Topical BID 05/15/20 20 021 Inactive clotrimazole 1 % topical cream RxNorm: 966368 Apply to bilateral groin areas Topical BID 05/15/20 20 021 Inactive Lyrica 50 mg capsule RxNorm: 787760 Take 1 Capsule(s) Oral QAM every morning 05/14/20 20 020 Inactive Lyrica 100 mg capsule RxNorm: 428696 Take 1 Capsule(s) Oral QHS every night [...] Inactive Nystop 100,000 unit/gram topical powder RxNorm: 374192 Apply to abd folds, under breasts and L side of groin Topical BID x 14 days, then BID PRN 04/08/20 20 Inactive dx: yeast dermatitis Lyrica 100 mg capsule RxNorm: 575216 Take 1 Capsule(s) Oral QHS every night at bedtime 03/13/20 20 Inactive Lyrica 50 mg capsule RxNorm: 930771 Take 1 Capsule(s) Oral QAM every morning 03/13/20 20 Inactive ketoconazole 2 % shampoo RxNorm: 970174 Apply Topical two times a week with showers 03/11/20 Inactive cholecalciferol (vitamin D3) 50 mcg (2,000 unit) tablet RxNorm: 761457 Take 1 Tablet(s) Oral QD 03/11/20 20 Inactive Zetia 10 mg tablet RxNorm: 228724 Take 1 Tablet(s) Oral QD 03/07/20 20 Inactive Zetia 10 mg tablet RxNorm: 848615 Take 1 Tablet(s) Oral QD 03/07/20 20 Inactive Lyrica 50 mg capsule RxNorm: 003359 Take 1 Capsule(s) Oral QAM every morning 02/15/20 20 Inactive Lyrica 100 mg capsule RxNorm: 198068 Take 1 Capsule(s) Oral QHS every night at bedtime 02/15/20 20 Inactive Lyrica 100 mg capsule RxNorm: 585897 Take 1 Capsule(s) Oral QHS every night at bedtime 02/15/20 20 Inactive Lyrica 50 mg capsule RxNorm: 031502 Take 1 Capsule(s) Oral QAM every morning 02/15/20 20 Inactive venlafaxine ER 75 mg capsule,extended release 24 hr RxNorm: 625396 Take 3 Capsule(s) Oral QD 06/12/2021 Activepolyethylene glycol 3350 17 gram/dose oral powderRxNorm: 049149Gcxr 17=1 capful Gram(s) Oral BID as needed mix with 4-8oz of wmcnwo6106/12/2021ctive Levemir FlexTouch U-100 Insulin 100 unit/mL (3 mL) subcutaneous penRxNorm: 407941Tqowpf 80 Unit(s) Subcutaneous BID/Inactiveloperamide 2 mg capsuleRxNorm: 071651Bxgx 1 Capsule(s) Oral QID as pxwtvs7506/12/2021ctive Novolog Flexpen U-100 Insulin aspart 100 unit/mL (3 mL) subcutaneousRxNorm: 1388756Rxdjsa 30 Unit(s) Subcutaneous TID with meals/Inactive Medication [...] Result Date S ervice Location PHQ-9 PHQ9 13563-5 4 11/11/2021 Unknown PHQ-9 PHQ9 28099-0 4 11/11/2021 Unknown Procedures Procedure Codes Date SYS BP > OR = 140 CPT-4: G8753 11/11/2021 CUI BP LESS 90 CPT-4: G8754 11/11/2021 ADVNC CARE PLAN IN RCRD CPT-4: 1157F 11/12/19 FALL RISK ASSESSMENT DOCD CPT-4: 3288F 2021 PPPS, SUBSEQ VISIT SNOMED CT: 289774747 980387 CPT-4: Z526133EBRIDE NAIL 6 OR MORECPT-4: 523325211/11/2021MNT PAIN NOTED NONE PRSNTCPT-4: 3116B5411/11/2021T INELIG NEG SCRN DEPRESSNOMED CT: [id number] CPT-4: I999458/ Vital Signs Date Vital 11/11/2021 Blood Pressure 1: 146/62 Code: 8480-6 Heart Rate 1: 70 bpm Code: 8867-4 Respiratory Rate: 16 bpm Temperature: 36.2 (C) / 97.2 (F) Reason For Visit No Reason For Visit data Encounters Encounter Performer Location Location Address Codes Cristiano e ([id number]) DOMICIL VISIT EST CARLO T Diagnosis: Onychogryposis[ICD10: L60.2] Diagnosis: Candidiasis, intertrigo[ICD10: B37.2] Diagnosis: Hyperlipidemia associated with type 2 diabetes mellitus[ICD10: E11.69] Diagnosis: Hypertension associated with diabetes[ICD10: E11.59] Diagnosis: Stage 2 chronic 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[ICD10: E11.22] Diagnosis: Type 2 diabetes mellitus with diabetic polyneuropathy, with long-term current use of insulin[ICD10: E11.42] Diagnosis: Preventative health care[ICD10: Z00.00] Diagnosis: Seizure disorder[ICD10: G40.909] Diagnosis: Inappropriate sexual behavior[ICD10: Z72.89] Diagnosis: Gout due to renal impairment[ICD10: M10.30]Tapan Wiseman on [id number] [place] [address]GZZ-7: 7997389 Plan of Care Planned Activity Notes Codes Status Date Referral: [facility] WPtel: [address], [address] [id number] USReferralRecords Pexxplbj51/08/2023Patient Education: Patient Medication XiqpjiwVtuscwgiq72/28/2022atient Education: Influenza VaccineCompleted 2Referral: [facility] CARLO WPtel: [address] [id number] QTLaxlhauiDwcyiaovu11/12/2022Referral: General CardiologyReferralCompleted 1Referral: General PsychologistReferralClosed Instructions Comment Date Leonid is a Male being seen living at [facility] [...] Sister Jyotsna involved in his care cell# [phone] Guardian: Don (tapan met in person 09/01/21), now has Lexii (same group as don)Lab Schedule: Mar-/September* 10/06/2022 Diabetes BGs elevated but following with endo. Facility to schedule f/u with endo and can request telehealthsince patient doesn't have transportation.?? Inappropriate sexual behavior Has been doing well without incidence. Continue plan in place.?? Epilepsy NO recent seizure activity. Stable.?? Onychogryposis (*8*) toenails debrided today, (*4*) on left foot, (*4*) on right foot. Medical grade nail clippersand electric dremel used to significantly reduce length & thickness. Anti-fungal treatment options reviewed, discussion deferred as treatment not appropriate or beneficial to patient. Patient tolerated procedure well. Candidiasis, intertrigo No reported concerns. Continue nystatin.?? Preventative health care Due for cologuard, ordering today. Will do PSA in feb with next routine labs.?? .11/11/2021
--- OUTSIDE RECORDS SUMMARY | 2022-11-09 23:26 | XMS_ITS | CCD ---
Author Name Tapan Shirley PA-C Address [address] [facility] [address] [place] [address] Phone Organization [facility] Phone Care Team Providers Care Coating Technician Name Role Phone Tapan Shirley PA-C Primary Care Provider Unavailabl e Tapan Shirley PA-C Chronic Care Management Unavaila ble Summary Purpose DataExchange Insurance Providers Payer name Policy type / Coverage type Covered green party ID Effective Begin Date Effective End Date [place] Part B [id number] Unknown Unknown [place] Part B [id number] Unknown Unknown Family history Sister Brittany Suggs Diagnosis Age At Onset No Family Disease Entered N/A Runs in the family Diagnosis Age At Onset No Known Diseases N/A Sister Blanka Mcduffie Diagnosis Age At Onset No Family Disease Entered N/A Social History Social History Element Codes Description Effec tive Dates Marital status Unknown Single 10/07/2021 Living arrangements Unknown Nursing Home 09/03/[address]: 2931259 Non-Smoker / No History of Smoking 09/02/[address]: 650773496 No Alcohol Consum ption 09/02/2020 Allergies, Adverse Reactions, Alerts Substance Reaction Codes Entered Date Inactivated Date Status LISINOPRIL RxNorm: 4045094No Inactive DateActiveMetformin CAzXolzaoq40/28/2020No Inactive DateActive Problems Condition Codes Effective Dates Condition St atus Depression ICD-10: F32.9 ICD-9: 70961/ctiveHistory of anemia due to CKDICD-10: N18.9 ICD-9: 585.907ctiveHyperlipidemia associated with type 2 diabetes mellitusICD-10: E11.69 ICD-9: 250.80072ActiveHypertension associated with diabetesICD-10: E11.59 ICD-9: 250.8007/ctiveSecondary hypertensionICD-10: I15.9 ICD-9: 405.9907/ctiveStage 2 chronic kidney diseaseICD-10: N18.2 ICD-9: 585.207/ctiveStage 2 chronic 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ICD-10: E11.22 ICD-9: 250.4007/ctiveType 2 diabetes mellitus with diabetic polyneuropathy, with long-term current use of insulinICD-10: E11.42 ICD-9: 250.6007/ctiveCandidiasis, intertrigoICD-10: B37.2 ICD-9: 112.306/ctiveGout due to renal impairmentICD-10: M10.30 ICD-9: 274.1006/ctiveInappropriate sexual behaviorICD-10: Z72.89 ICD-9: 312.8906ctiveOnychogryposisICD-10: L60.2 ICD-9: 703.806/ctivePreventative health careICD-10: Z00.00 ICD-9: V70.006/ctiveSeizure disorderICD-10: G40.909 ICD-9: 345.9006/ctiveLower extremity edemaICD-10: R60.0 ICD-9: 782.305/ctiveAmputated toe of right footICD-10: S98.131A ICD-9: 895.004/ctiveLong term (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 insulinICD-10: Z79.4 04ctiveMuscular painICD-10: M79.10 ICD-9: 729.103/ctivePain of right heelICD-10: M79.671 ICD-9: 729.503/ctiveCoronary artery disease involving port lions coronary artery of port lions heart, angina presence unspecifiedICD-10: I25.10 ICD-9: 414.01007/08/2021ctiveDVT (deep venous thrombosis)ICD-10: I82.409 ICD-9: 453.4002/ctiveEncounter for immunizationICD-10: Z23 ICD-9: V03.8902/ctiveLearning disabilityICD-10: F81.9 ICD-9: 315.212/ctiveSkin tagICD-10: L91.8 ICD-9: 701.911ctiveVitamin D deficiencyICD-10: E55.9 ICD-9: 268.911/ctiveCellulitisICD-10: L03.90 ICD-9: 682.910/ctiveCallus of heelICD-10: L84 ICD-9: 21803ctiveImpacted cerumen, left earICD-10: H61.22 ICD-9: 380.408/ctiveContact with [...] to other viral communicable diseasesICD-10: Z20.828 ICD-9: V01.79021ResolvedHyperhidrosis of palmsICD-10: L74.512 ICD-9: 705.9796QzxtmjPqnccelbMamvotv93/28/2020ActiveDiabetes mellitus Type 7Rcyoaqv57/28/2020ActiveAnemia in chronic kidney diseaseICD-10: D63.1 02/12/2020ResolvedHyperlipidemia, unspecifiedICD-10: E78.Resolved Medications Medication Codes Instructions Start Date Stop Date Status Fill Instructions Novolog Flexpen U-100 Insulin aspart 100 unit/mL (3 mL) subcutaneous RxNorm: 1975906 Inject 42 Unit(s) Subcutaneous TID in addition to sliding scale 12/10/19 22 022 Inactive d/c 36u chlorthalidone 25 mg tablet RxNorm: 593646 Take 1 Tablet(s) Oral QAM every morning 12/10/19 22 023 Active pregabalin 50 mg capsule RxNorm: 189456 Take 1 Capsule(s) Oral QAM every morning 11/12/19 22 022 Inactive tetanus-diphtheria toxoids-Td 2 Lf unit-2 Lf unit/0.5 mL IM suspension RxNorm: 139 Take 0.5 Miscellaneous Intramuscular 11/12/19 22 022 Inactive need tdap - nursing to administer upon arrival pregabalin 50 mg capsule RxNorm: 327496 Take 1 Capsule(s) Oral QAM every morning 10/16/19 022 Inactive pregabalin 50 mg capsule RxNorm: 035484 Take 1 Capsule(s) Oral QAM every morning 10/16/19 22 022 Inactive pregabalin 50 mg capsule RxNorm: 041263 1 Capsule(s) Oral QAM every morning 10/15/19 22 022 Inactive Shingrix (PF) 50 mcg/0.5 mL intramuscular suspension, kit RxNorm: 4652039 Administer 1/2 Milliliter(s) Intramuscular one time Nursing please administer upon arrival and once administered 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, tailor's aide, 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 10/09/19 22 022 Inactive shingrix step 1 Shingrix (PF) 50 mcg/0.5 mL intramuscular suspension, kit RxNorm: 3156400 Administer 1/2 Milliliter(s) Intramuscular one time Nursing please administer upon arrival and once administered 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, tailor's aide, 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 10/09/19 22 022 Inactive shingrix step 1 Novolog Flexpen U-100 Insulin aspart 100 unit/mL (3 mL) subcutaneous RxNorm: 6232644 Inject 10 Unit(s) Subcutaneous QHS every night at bedtime with nighttime snack 10/08/19 22 Inactive cholecalciferol (vitamin D3) 1,250 mcg (50,000 unit) capsule RxNorm: 497791 Take 1 Capsule(s) Oral QW once a [...] 50 mcg/0.5 mL intramuscular suspension, kit RxNorm: 6781247 ADMINISTER 2-DOSE SERIES PER CDC GUIDELINES 10/08/19 22 022 Active Shingrix (PF) 50 mcg/0.5 mL intramuscular suspension, kit RxNorm: 5067832 ADMINISTER 2-DOSE SERIES PER CDC GUIDELINES 10/08/19 22 Inactive Novolog Flexpen U-100 Insulin aspart 100 unit/mL (3 mL) subcutaneous RxNorm: 7968479 Inject 36 Unit(s) Subcutaneous TID in addition to sliding scale 10/08/19 22 Inactive Novofine Autocover 30 gauge x 1/3 needle RxNorm: Use 1 Miscellaneous UD as directed Use 1 needle as directed to administer insulin 5 times a day Dx:E11.42. 10/03/19 22 022 Inactive ok to substitute with any covered alternative pen needle benzoyl peroxide 10 % topical cleanser RxNorm: 015111 Apply 1 Application Topical QD apply to face, wash rinse and dry once daily (may change to QOD if drying) 08/19/19 22 022 Inactive (%covered by insurance) #60ml refill 11 dx: acne Lyrica 100 mg capsule RxNorm: 284302 Take 1 Capsule(s) Oral QHS every night at bedtime Take 1 capsule by mouth once daily at bedtime 08/19/19 022 Inactive benzoyl peroxide 10 % topical cleanser RxNorm: 299163 Apply 1 Application Topical QD apply to face, wash rinse and dry once daily (may change to QOD if drying) 08/19/19 22 022 Inactive (%covered by insurance) #60ml refill 11 dx: acne benzoyl peroxide 10 % topical cleanser RxNorm: 912565 Apply 1 Application Topical QD apply to face, wash rinse and dry once daily (may change to QOD if drying) 08/19/19 22 022 Inactive (%covered by insurance) #60ml refill 11 dx: acne Lyrica 50 mg capsule RxNorm: 075911 Take 1 Capsule(s) Oral QAM every morning Take 1 capsule by mouth once daily 08/19/19 22 022 Inactive benzoyl peroxide 10 % topical cleanser RxNorm: 924812 Apply 1 Application Topical QD apply to face, wash rinse and dry once daily (may change to QOD if drying) 08/19/19 22 022 Inactive (%covered by insurance) #60ml refill 11 dx: acne Lyrica 100 mg capsule RxNorm: 913905 Take 1 Capsule(s) Oral QHS every night at bedtime Take 1 capsule by mouth once daily at bedtime 08/16/19 022 Inactive Lyrica 50 mg capsule RxNorm: 003489 Take 1 Capsule(s) Oral QAM every morning Take 1 capsule by mouth once daily 08/16/19 22 022 Inactive Levemir FlexTouch U-100 Insulin 100 unit/mL (3 mL) subcutaneous pen RxNorm: 142521 Inject 86 Unit(s) Subcutaneous BID 08/05/19 22 022 Inactive d/c 83units BID Lyrica 100 mg capsule RxNorm: 972886 Take 1 Capsule(s) Oral QHS every night at bedtime Take 1 capsule by mouth once daily at bedtime 07/14/19 22 Inactive Lyrica 50 mg capsule RxNorm: 723060 Take 1 Capsule(s) Oral QAM every morning Take 1 capsule by mouth once daily 07/14/19 22 Inactive Levemir FlexTouch U-100 Insulin 100 unit/mL (3 mL) subcutaneous pen RxNorm: 306189 Inject 83 Unit(s) Subcutaneous BID 07/08/19 22 [...] test strip hydralazine 50 mg tablet RxNorm: 286599 Take 1 Tablet(s) Oral QID 05/05/20 Inactive isosorbide mononitrate ER 30 mg tablet,extended release 24 hr RxNorm: 742397 Take 1 Tablet(s) Oral QD 05/05/20 No Stop Date Active venlafaxine ER 225 mg tablet,extended release 24 hr RxNorm: 456750 Take 1 Tablet(s) Oral QD 05/05/20 Inactive venlafaxine ER 225 mg tablet,extended release 24 hr RxNorm: 739383 Take 1 Tablet(s) Oral QD 05/05/20 022 Inactive hydralazine 50 mg tablet RxNorm: 412333 Take 1 Tablet(s) Oral QID 05/05/20 Inactive aspirin 81 mg tablet,delayed release RxNorm: 115560 Take 1 Tablet(s) Oral QD 03/31/20 Inactive Zetia 10 mg tablet RxNorm: 650515 Take 1 Tablet(s) Oral QD 03/31/20 Inactive Vitamin D2 1,250 mcg (50,000 unit) capsule RxNorm: 3226749 Take 1 Capsule(s) Oral QW once a week x 12 weeks 03/31/20 Inactive Vitamin D2 1,250 mcg (50,000 unit) capsule RxNorm: 1488804 Take 1 Capsule(s) Oral QW once a week 03/31/20 Inactive Zetia 10 mg tablet RxNorm: 854633 Take 1 Tablet(s) Oral QD 03/31/20 Inactive hydralazine 25 mg tablet RxNorm: 177342 Take 1 Tablet(s) Oral QID 03/31/20 Inactive hydralazine 25 mg tablet RxNorm: 773682 Take 1 Tablet(s) Oral QID 03/31/20 021 Inactive hydralazine 10 mg tablet RxNorm: 155276 Take 1 Tablet(s) Oral QID 10/18/20 21 11/14/2 021 Inactive cephalexin 500 mg tablet RxNorm: 586227 Take 1 Tablet(s) Oral QID 02/27/20 021 Inactive cephalexin 500 mg tablet RxNorm: 084135 Take 1 Tablet(s) Oral QID 02/27/20 021 Inactive lisinopril 40 mg tablet RxNorm: 635171 Take 1 Tablet(s) Oral QD 02/11/20 023 Inactive Eliquis 5 mg tablet RxNorm: 6531407 Take 1 Tablet(s) Oral BID 01/05/20 21 022 Inactive Eliquis 5 mg tablet RxNorm: 2865744 Take 2 Tablet(s) Oral QD 01/01/20 21 021 Inactive Lyrica 50 mg capsule RxNorm: 337267 Take 1 Capsule(s) Oral QAM every morning 12/24/19 021 Inactive Lyrica 100 mg capsule RxNorm: 062032 Take 1 Capsule(s) Oral QHS every night at bedtime 12/24/19 021 Inactive clotrimazole 1 % topical cream RxNorm: 655834 Apply to right foot and toes Topical BID 12/04/19 21 023 Inactive metoprolol succinate ER 200 mg tablet,extended release 24 hr RxNorm: 113541 Take 1 Tablet(s) Oral QD 12/04/19 023 Inactive ciprofloxacin 500 mg tablet RxNorm: 184214 Take 1 Tablet(s) Oral QD 11/30/19 021 Inactive DX ofloxacin otic drops Accu-Chek Guide test strips RxNorm: USE 1 TO CHECK GLUCOSE 4 TIMES DAILY AND NEEDED 11/15/19 21 023 Inactive Blood Glucose Test strips RxNorm: Use 1 Test Strip QID at PRN 11/05/19 21 023 Inactive E11.42 lisinopril 30 mg tablet RxNorm: 486651 Take 1 Tablet(s) Oral QD 10/30/19 021 Inactive lisinopril 20 mg tablet RxNorm: 114526 Take 1 Tablet(s) Oral QD 10/23/19 21 021 Inactive lisinopril 20 mg tablet RxNorm: 341084 Take 1 Tablet(s) Oral QD 10/23/19 21 Inactive lisinopril 10 mg tablet RxNorm: 419230 Take 1 Tablet(s) Oral QD 10/02/19 21 021 Inactive icosapent ethyl 1 gram capsule RxNorm: 3031345 Take 2 Capsule(s) (2 gm) Oral BID with meals 09/12/19 022 Inactive Okay to dispense one 2gm tab if you have that available. icosapent ethyl 1 gram capsule RxNorm: 2121581 Take 2 Capsule(s) Oral BID 09/12/19 021 Inactive Okay to dispense one 2gm tab if you have that available. amlodipine 10 mg tablet RxNorm: 751617 Take 1 Tablet(s) Oral QD 09/04/19 Inactive aspirin 81 mg tablet,delayed release RxNorm: 504723 Take 1 Tablet(s) Oral QD 09/04/19 Inactive Levemir FlexTouch U-100 Insulin 100 unit/mL (3 mL) subcutaneous pen RxNorm: 603000 Inject 150 Unit(s) Subcutaneous BID 09/04/19 Inactive venlafaxine ER 150 mg tablet,extended release 24 hr RxNorm: 800774 Take 1 Tablet(s) Oral QD 09/04/19 Inactive clotrimazole-betame thasone 1 %-0.05 % topical cream RxNorm: 463748 Apply to rash on red area on left abdomen/chest Topical BID 08/10/19 21 Inactive amlodipine 5 mg tablet RxNorm: 290398 Take 1 Tablet(s) Oral QD 07/31/19 21 Inactive cephalexin 500 mg tablet RxNorm: 793938 Take 1 Tablet(s) Oral BID BID - Twice Daily 07/31/19 21 021 Inactive Start 08/01/20 pantoprazole 40 mg tablet,delayed release RxNorm: 933066 Take 1 Tablet(s) Oral QAM every morning 07/08/19 21 022 Inactive senna 8.6 mg tablet RxNorm: 571011 Take 1 Tablet(s) Oral QD 07/08/19 21 022 Inactive pravastatin 80 mg tablet RxNorm: 196303 Take 1 Tablet(s) Oral QHS every night at bedtime 07/08/19 21 022 Inactive clotrimazole 1 % topical cream RxNorm: 954385 Apply to bilateral groin areas Topical BID 07/08/19 21 022 Inactive carbamazepine 200 mg tablet RxNorm: 019763 Take 1 Tablet(s) Oral BID 07/08/19 21 022 Inactive torsemide 20 mg tablet RxNorm: 815544 Take 1 Tablet(s) Oral QD 07/08/19 21 023 Inactive clopidogrel 75 mg tablet RxNorm: 647753 Take 1 Tablet(s) Oral QD 07/08/19 021 Inactive Blood Glucose Test strips RxNorm: Use 1 Test Strip QID at PRN 07/08/19 21 Inactive E11.42 Novolog Flexpen U-100 Insulin aspart 100 unit/mL (3 mL) subcutaneous RxNorm: 8135171 Administer per sliding scale Milliliter(s) Subcutaneous TID 151-200: 10 u; 201-250: 20 u; 251-300: 30 u; 301-350: 40 u; 351-400: 50 u. 07/08/19 21 022 Inactive lisinopril 5 mg tablet RxNorm: 378825 Take 1 Tablet(s) Oral QD 07/08/19 21 021 Inactive Novolog Flexpen U-100 Insulin aspart 100 unit/mL (3 mL) subcutaneous RxNorm: 8323450 Inject 85 Unit(s) Subcutaneous TID 07/08/19 21 022 Inactive metoprolol succinate ER 200 mg tablet,extended release 24 hr RxNorm: 818435 Take 1 Tablet(s) Oral QD 07/08/19 21 021 Inactive Vitamin D3 25 mcg (1,000 unit) tablet RxNorm: 182774 Take 1 Tablet(s) Oral QD 07/08/19 021 Inactive isosorbide dinitrate 30 mg tablet RxNorm: 607963 Take 1 Tablet(s) Oral QD 07/08/19 021 Inactive Levemir FlexTouch U-100 Insulin 100 unit/mL (3 mL) subcutaneous pen RxNorm: 632434 Inject 140 Unit(s) Subcutaneous BID 07/08/19 021 Inactive venlafaxine 75 mg tablet RxNorm: 475526 Take 1 Tablet(s) Oral QD 07/08/19 Inactive acetaminophen 500 mg tablet RxNorm: 478836 Take 1 Tablet(s) Oral TID as needed for headache 06/18/19 Inactive acetaminophen 500 mg tablet RxNorm: 048069 Take 1 Tablet(s) Oral TID as needed for headache 06/18/19 Inactive Lyrica 100 mg capsule RxNorm: 596041 Take 1 Capsule(s) Oral QHS every night at bedtime 06/11/19 021 Inactive Lyrica 50 mg capsule RxNorm: 551699 Take 1 Capsule(s) Oral QAM every morning 06/10/19 21 021 Inactive hydrocortisone 2.5 % topical cream RxNorm: 530821 Apply to bilateral groin creases Topical BID 05/15/20 20 021 Inactive clotrimazole 1 % topical cream RxNorm: 246850 Apply to bilateral groin areas Topical BID 05/15/20 20 021 Inactive Lyrica 50 mg capsule RxNorm: 920518 Take 1 Capsule(s) Oral QAM every morning 05/14/20 20 Inactive Lyrica 100 mg capsule RxNorm: 955668 Take 1 Capsule(s) Oral QHS every night [...] Inactive Nystop 100,000 unit/gram topical powder RxNorm: 060928 Apply to abd folds, under breasts and L side of groin Topical BID x 14 days, then BID PRN 04/08/20 20 Inactive dx: yeast dermatitis Lyrica 100 mg capsule RxNorm: 459720 Take 1 Capsule(s) Oral QHS every night at bedtime 03/13/20 20 Inactive Lyrica 50 mg capsule RxNorm: 377747 Take 1 Capsule(s) Oral QAM every morning 03/13/20 20 Inactive ketoconazole 2 % shampoo RxNorm: 072623 Apply Topical two times a week with showers 03/11/20 20 Inactive cholecalciferol (vitamin D3) 50 mcg (2,000 unit) tablet RxNorm: 874361 Take 1 Tablet(s) Oral QD 03/11/20 20 Inactive Zetia 10 mg tablet RxNorm: 009736 Take 1 Tablet(s) Oral QD 03/07/20 20 021 Inactive Zetia 10 mg tablet RxNorm: 482699 Take 1 Tablet(s) Oral QD 03/07/20 20 Inactive Lyrica 50 mg capsule RxNorm: 637747 Take 1 Capsule(s) Oral QAM every morning 02/15/20 20 Inactive Lyrica 100 mg capsule RxNorm: 175171 Take 1 Capsule(s) Oral QHS every night at bedtime 02/15/20 20 Inactive Lyrica 100 mg capsule RxNorm: 194446 Take 1 Capsule(s) Oral QHS every night at bedtime 02/15/20 20 Inactive Lyrica 50 mg capsule RxNorm: 992240 Take 1 Capsule(s) Oral QAM every morning 02/15/20 20 020 Inactive venlafaxine ER 75 mg capsule,extended release 24 hr RxNorm: 670229 Take 3 Capsule(s) Oral QD 06/12/2021 Activepolyethylene glycol 3350 17 gram/dose oral powderRxNorm: 143720Bcsn 17=1 capful Gram(s) Oral BID as needed mix with 4-8oz of ooalws4506/12/2021ctive Levemir FlexTouch U-100 Insulin 100 unit/mL (3 mL) subcutaneous penRxNorm: 996076Sbdtsq 80 Unit(s) Subcutaneous BID07/14//Inactiveloperamide 2 mg capsuleRxNorm: 686035Kssj 1 Capsule(s) Oral QID as qrxiya3906/12/2021ctive Novolog Flexpen U-100 Insulin aspart 100 unit/mL (3 mL) subcutaneousRxNorm: 2754002Bnobnn 30 Unit(s) Subcutaneous TID with meals/Inactive Medication [...] Performer Location Location Address Codes Cristiano e ([id number]) DOMICIL VISIT EST CARLO Benitez Diagnosis: Type 2 diabetes mellitus with diabetic polyneuropathy, with long-term current use of insulin[ICD10: E11.42] Diagnosis: Hyperlipidemia associated with type 2 diabetes mellitus[ICD10: E11.69] Diagnosis: Hypertension associated with diabetes[ICD10: E11.59] Diagnosis: Stage 2 chronic 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[ICD10: E11.22] Diagnosis: Secondary hypertension[ICD10: I15.9] Diagnosis: Depression[ICD10: F32.9] Diagnosis: Stage 2 chronic kidney disease[ICD10: N18.2] Diagnosis: History of anemia due to CKD[ICD10: N18.9][facility] [id number] [place] [address]VUR-1: [id number]/ Plan of Care Planned Activity Notes Codes Status Date Referral: [facility] WPtel: [address] [id number] USReferralRecords Qijdvbhh29/08/2023Referral: [facility] WPtel: [address] [id number] CZEquggbnaWtkjqrnzv68/12/2022Referral: General CardiologyReferralCompleted 1Referral: General PsychologistReferralClosed Instructions Comment Date Leonid is a Male being seen living at [facility]. Initial [facility] visit 01/2020. PMHx including DMII, CAD w/ 5 stents, Depression, Seizure Disorder and CKD stage 3. He moved into [facility] in 12/2019 but after a hospitalization 05/2021 he moved to the [facility] to have closer nursing attention. Sister Jyotsna involved in his care cell# [phone] Guardian: Don (tapan met in person 09/01/21), now has Lexii (same group as don)Lab Schedule: Mar-/September* 10/06/2022 Diabetes BGs reviewed and staff reports patient consistently gets his 36units with meals plus at least 10 extra units based on the sliding scale and frequently will get up to 50units plus the 36units.?? Increase novolog from 36u TID to 42u TID with meals in addition to sliding scale.?? Secondary hypertension Nephro referral in process but doesn't have transportation so bridge message sent to referrals dept to see if telehealth can be scheduled. In mean time add chlorthalidone 25mg tab - take 1 tab po QAM (last Na and GFR were nl) Chronic Kidney Disease Considered kidney function with the addition of chlorthalidone.?? Depression msg sent to psych via bridge for a consult on patient's worsening depression and isolation.?? .12/09/2021
--- OUTSIDE RECORDS SUMMARY | 2022-11-09 23:26 | XMS_ITS | CCD ---
Author Name Tapan Shirley PA-C Address [address] [place] [address] Phone Organization [facility] Phone Care Team Providers Care Traffic Control Specialist Name Role Phone Tapan Shirley PA-C Primary Care Provider Unavailabl e Tapan Shirley PA-C Chronic Care Management Unavaila ble Summary Purpose DataExchange Insurance Providers Payer name Policy type / Coverage type Covered constitution party ID Effective Begin Date Effective End Date Medicare [place] Medicare Part B [id number] Unknown Unknown Medicaid [place] Medicare Part B [id number] Unknown Unknown Family history Sister Brittany Suggs [...] Care Facility 09/03/[address]: 7853448 Non-Smoker / No History of Smoking 09/02/[address]: 004444748 No Alcohol Consum ption 09/02/2020 Allergies, Adverse Reactions, Alerts Substance Reaction Codes Entered Date Inactivated Date Status LISINOPRIL RxNorm: 7151852No Inactive DateActiveMetformin BYmBxxnlgi60/28/2020No Inactive DateActive Problems Condition Codes Effective Dates Condition St atus Coronary artery disease invo lving craig coronary artery of craig heart, angina presence unspecified ICD-10: I25.10 ICD-9: 414.01082ActiveDandruff in adultICD-10: L21.0 ICD-9: 690.18082ActiveHyperlipidemia associated with type 2 diabetes mellitusICD-10: E11.69 ICD-9: 250.80082ActiveHypertensive heart disease without heart failure ICD-10: I11.9 ICD-9: 402.9008/ctiveLong term (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 insulinICD-10: Z79.4 01/06/2022ctiveOnychogryposisICD-10: L60.2 ICD-9: 703.808/ctiveStage 2 chronic 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ICD-10: E11.22 ICD-9: 250.40082ActiveType 2 diabetes mellitus with diabetic polyneuropathy, with long-term current use of insulinICD-10: E11.42 ICD-9: 250.60082ActiveHypertension associated with diabetesICD-10: E11.59 ICD-9: 250.8008/2ResolvedDepressionICD-10: F32.9 ICD-9: 23739/ctiveHistory of anemia due to CKDICD-10: N18.9 ICD-9: 585.907/ctiveSecondary hypertensionICD-10: I15.9 ICD-9: 405.9907/ctiveStage 2 chronic kidney diseaseICD-10: N18.2 ICD-9: 585.207/ctiveCandidiasis, intertrigoICD-10: B37.2 ICD-9: 112.306/ctiveGout due to renal impairmentICD-10: M10.30 ICD-9: 274.1006/ctiveInappropriate sexual behaviorICD-10: Z72.89 ICD-9: 312.8906/ctivePreventative health careICD-10: Z00.00 ICD-9: V70.006/ctiveSeizure disorderICD-10: G40.909 ICD-9: 345.9006/ctiveLower extremity edemaICD-10: R60.0 ICD-9: 782.305/ctiveAmputated toe of right footICD-10: S98.131A ICD-9: 895.004/ctiveMuscular painICD-10: M79.10 ICD-9: 729.103/ctivePain of right heelICD-10: M79.671 ICD-9: 729.503/ctiveDVT (deep venous thrombosis)ICD-10: I82.409 ICD-9: 453.4002/ctiveEncounter for immunizationICD-10: Z23 ICD-9: V03.8902/ctiveLearning disabilityICD-10: F81.9 ICD-9: 315.212/ctiveSkin tagICD-10: L91.8 ICD-9: 701.911/ctiveVitamin D deficiencyICD-10: E55.9 ICD-9: 268.91/ctiveCellulitisICD-10: L03.90 ICD-9: 682.910/ctiveCallus of heelICD-10: L84 ICD-9: 88246ctiveImpacted cerumen, left earICD-10: H61.22 ICD-9: 380.408/ctiveContact with [...] Z20.828 ICD-9: V01.7902esolvedHyperhidrosis of palmsICD-10: L74.512 ICD-9: 705.7267BictvuBlrfmgtuUqqiawm09/28/2020ActiveDiabetes mellitus Type 5Frkpkhz46/28/2020ActiveAnemia in chronic kidney diseaseICD-10: D63.1 02/12/2020ResolvedHyperlipidemia, unspecifiedICD-10: E78.Resolved Medications Medication Codes Instructions Start Date Stop Date Status Fill Instructions Lyrica 100 mg capsule RxNorm: 994508 Take 1 Capsule(s) Oral QAM every morning 01/08/20 22 022 Inactive d/c 50mg dose acetaminophen 500 mg tablet RxNorm: 907494 Take 1 Tablet(s) Oral TID 01/08/20 22 023 Active d/c PRN order Lyrica 150 mg capsule RxNorm: 425165 Take 1 Capsule(s) Oral QHS every night at bedtime 01/08/20 22 023 Inactive d/c 100mg dose polyethylene glycol 3350 17 gram/dose oral powder RxNorm: 821439 Take 17=1 capful Gram(s) Oral QD mix with 4-8oz of liquid 01/08/20 22 023 Active take this in addition to BID prn order Abilify 5 mg tablet RxNorm: 955088 Take 1 Tablet(s) Oral QD take 1 tab po QD #30 refill 5 dx: MDD 12/12/19 22 022 Inactive Abilify 5 mg tablet RxNorm: 181457 Take 1 Tablet(s) Oral QD take 1 tab po QD #30 refill 5 dx: MDD 12/12/19 22 022 Inactive chlorthalidone 25 mg tablet RxNorm: 565069 Take 1 Tablet(s) Oral QAM every morning 12/10/19 22 023 Active Novolog Flexpen U-100 Insulin aspart 100 unit/mL (3 mL) subcutaneous RxNorm: 5026785 Inject 42 Unit(s) Subcutaneous TID in addition to sliding scale 12/10/19 22 022 Inactive d/c 36u pregabalin 50 mg capsule RxNorm: 829976 Take 1 Capsule(s) Oral QAM every morning 11/12/19 22 022 Inactive tetanus-diphtheria toxoids-Td 2 Lf unit-2 Lf unit/0.5 mL IM suspension RxNorm: 139 Take 0.5 Miscellaneous Intramuscular 11/12/19 22 022 Inactive need tdap - nursing to administer upon arrival pregabalin 50 mg capsule RxNorm: 079159 Take 1 Capsule(s) Oral QAM every morning 10/16/19 22 022 Inactive pregabalin 50 mg capsule RxNorm: 332034 Take 1 Capsule(s) Oral QAM every morning 10/16/19 22 022 Inactive pregabalin 50 mg capsule RxNorm: 072543 1 Capsule(s) Oral QAM every morning 10/15/19 22 022 Inactive Shingrix (PF) 50 mcg/0.5 mL intramuscular suspension, kit RxNorm: 4361698 Administer 1/2 Milliliter(s) Intramuscular one time Nursing please administer upon arrival and once administered 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, battery tester field, 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 10/09/19 22 022 Inactive shingrix step 1 Shingrix (PF) 50 mcg/0.5 mL intramuscular suspension, kit RxNorm: 3527590 Administer 1/2 Milliliter(s) Intramuscular one time Nursing please administer upon arrival and once administered 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, battery tester field, 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 10/09/19 22 022 Inactive shingrix step 1 Novolog Flexpen U-100 Insulin aspart 100 unit/mL (3 mL) subcutaneous RxNorm: 2347993 Inject 10 Unit(s) Subcutaneous QHS every night at bedtime with nighttime snack 10/08/19 22 022 Inactive cholecalciferol (vitamin D3) 1,250 mcg (50,000 unit) capsule RxNorm: 818029 Take 1 Capsule(s) Oral QW once a [...] 50 mcg/0.5 mL intramuscular suspension, kit RxNorm: 7977339 ADMINISTER 2-DOSE SERIES PER CDC GUIDELINES 10/08/19 22 Active Shingrix (PF) 50 mcg/0.5 mL intramuscular suspension, kit RxNorm: 9706371 ADMINISTER 2-DOSE SERIES PER CDC GUIDELINES 10/08/19 22 Inactive Novolog Flexpen U-100 Insulin aspart 100 unit/mL (3 mL) subcutaneous RxNorm: 6003787 Inject 36 Unit(s) Subcutaneous TID in addition to sliding scale 10/08/19 22 Inactive Novofine Autocover 30 gauge x 1/3 needle RxNorm: Use 1 Miscellaneous UD as directed Use 1 needle as directed to administer insulin 5 times a day Dx:E11.42. 10/03/19 Inactive ok to substitute with any covered alternative pen needle benzoyl peroxide 10 % topical cleanser RxNorm: 337855 Apply 1 Application Topical QD apply to face, wash rinse and dry once daily (may change to QOD if drying) 08/19/19 22 022 Inactive (%covered by insurance) #60ml refill 11 dx: acne Lyrica 100 mg capsule RxNorm: 599675 Take 1 Capsule(s) Oral QHS every night at bedtime Take 1 capsule by mouth once daily at bedtime 08/19/19 22 022 Inactive benzoyl peroxide 10 % topical cleanser RxNorm: 594837 Apply 1 Application Topical QD apply to face, wash rinse and dry once daily (may change to QOD if drying) 08/19/19 22 022 Inactive (%covered by insurance) #60ml refill 11 dx: acne benzoyl peroxide 10 % topical cleanser RxNorm: 846236 Apply 1 Application Topical QD apply to face, wash rinse and dry once daily (may change to QOD if drying) 08/19/19 22 022 Inactive (%covered by insurance) #60ml refill 11 dx: acne Lyrica 50 mg capsule RxNorm: 499559 Take 1 Capsule(s) Oral QAM every morning Take 1 capsule by mouth once daily 08/19/19 22 022 Inactive benzoyl peroxide 10 % topical cleanser RxNorm: 842621 Apply 1 Application Topical QD apply to face, wash rinse and dry once daily (may change to QOD if drying) 08/19/19 22 022 Inactive (%covered by insurance) #60ml refill 11 dx: acne Lyrica 100 mg capsule RxNorm: 060937 Take 1 Capsule(s) Oral QHS every night at bedtime Take 1 capsule by mouth once daily at bedtime 08/16/19 22 022 Inactive Lyrica 50 mg capsule RxNorm: 724783 Take 1 Capsule(s) Oral QAM every morning Take 1 capsule by mouth once daily 08/16/19 22 022 Inactive Levemir FlexTouch U-100 Insulin 100 unit/mL (3 mL) subcutaneous pen RxNorm: 645221 Inject 86 Unit(s) Subcutaneous BID 08/05/19 22 022 Inactive d/c 83units BID Lyrica 100 mg capsule RxNorm: 662541 Take 1 Capsule(s) Oral QHS every night at bedtime Take 1 capsule by mouth once daily at bedtime 07/14/19 22 022 Inactive Lyrica 50 mg capsule RxNorm: 856413 Take 1 Capsule(s) Oral QAM every morning Take 1 capsule by mouth once daily 07/14/19 22 022 Inactive Levemir FlexTouch U-100 Insulin 100 unit/mL (3 mL) subcutaneous pen RxNorm: 248702 Inject 83 Unit(s) Subcutaneous BID 07/08/19 22 [...] test strip hydralazine 50 mg tablet RxNorm: 443297 Take 1 Tablet(s) Oral QID 05/05/20 21 022 Inactive isosorbide mononitrate ER 30 mg tablet,extended release 24 hr RxNorm: 883608 Take 1 Tablet(s) Oral QD 05/05/20 No Stop Date Active venlafaxine ER 225 mg tablet,extended release 24 hr RxNorm: 404148 Take 1 Tablet(s) Oral QD 05/05/20 21 021 Inactive venlafaxine ER 225 mg tablet,extended release 24 hr RxNorm: 157912 Take 1 Tablet(s) Oral QD 05/05/20 21 022 Inactive hydralazine 50 mg tablet RxNorm: 681907 Take 1 Tablet(s) Oral QID 05/05/20 Inactive aspirin 81 mg tablet,delayed release RxNorm: 649525 Take 1 Tablet(s) Oral QD 03/31/20 Inactive Zetia 10 mg tablet RxNorm: 967262 Take 1 Tablet(s) Oral QD 03/31/20 Inactive Vitamin D2 1,250 mcg (50,000 unit) capsule RxNorm: 7403642 Take 1 Capsule(s) Oral QW once a week x 12 weeks 03/31/20 Inactive Vitamin D2 1,250 mcg (50,000 unit) capsule RxNorm: 0470987 Take 1 Capsule(s) Oral QW once a week 03/31/20 Inactive Zetia 10 mg tablet RxNorm: 897485 Take 1 Tablet(s) Oral QD 03/31/20 Inactive hydralazine 25 mg tablet RxNorm: 659304 Take 1 Tablet(s) Oral QID 03/31/20 021 Inactive hydralazine 25 mg tablet RxNorm: 901834 Take 1 Tablet(s) Oral QID 03/31/20 021 Inactive hydralazine 10 mg tablet RxNorm: 625053 Take 1 Tablet(s) Oral QID 03/03/20 021 Inactive cephalexin 500 mg tablet RxNorm: 542429 Take 1 Tablet(s) Oral QID 02/27/20 021 Inactive cephalexin 500 mg tablet RxNorm: 264404 Take 1 Tablet(s) Oral QID 02/27/20 021 Inactive lisinopril 40 mg tablet RxNorm: 150087 Take 1 Tablet(s) Oral QD 02/11/20 21 023 Inactive Eliquis 5 mg tablet RxNorm: 5165503 Take 1 Tablet(s) Oral BID 01/05/20 21 022 Inactive Eliquis 5 mg tablet RxNorm: 5260017 Take 2 Tablet(s) Oral QD 01/01/20 21 021 Inactive Lyrica 50 mg capsule RxNorm: 273790 Take 1 Capsule(s) Oral QAM every morning 12/24/19 21 021 Inactive Lyrica 100 mg capsule RxNorm: 497466 Take 1 Capsule(s) Oral QHS every night at bedtime 12/24/19 021 Inactive clotrimazole 1 % topical cream RxNorm: 804736 Apply to right foot and toes Topical BID 12/04/19 21 023 Inactive metoprolol succinate ER 200 mg tablet,extended release 24 hr RxNorm: 543675 Take 1 Tablet(s) Oral QD 12/04/19 023 Inactive ciprofloxacin 500 mg tablet RxNorm: 436445 Take 1 Tablet(s) Oral QD 11/30/19 021 Inactive DX ofloxacin otic drops Accu-Chek Guide test strips RxNorm: USE 1 TO CHECK GLUCOSE 4 TIMES DAILY AND NEEDED 11/15/19 21 023 Inactive Blood Glucose Test strips RxNorm: Use 1 Test Strip QID at PRN 11/05/19 21 023 Inactive E11.42 lisinopril 30 mg tablet RxNorm: 349331 Take 1 Tablet(s) Oral QD 10/30/19 021 Inactive lisinopril 20 mg tablet RxNorm: 793102 Take 1 Tablet(s) Oral QD 10/23/19 21 021 Inactive lisinopril 20 mg tablet RxNorm: 090205 Take 1 Tablet(s) Oral QD 10/23/19 021 Inactive lisinopril 10 mg tablet RxNorm: 227695 Take 1 Tablet(s) Oral QD 10/02/19 021 Inactive icosapent ethyl 1 gram capsule RxNorm: 1886804 Take 2 Capsule(s) (2 gm) Oral BID with meals 09/12/19 21 022 Inactive Okay to dispense one 2gm tab if you have that available. icosapent ethyl 1 gram capsule RxNorm: 0769509 Take 2 Capsule(s) Oral BID 09/12/19 21 021 Inactive Okay to dispense one 2gm tab if you have that available. amlodipine 10 mg tablet RxNorm: 215946 Take 1 Tablet(s) Oral QD 09/04/19 022 Inactive aspirin 81 mg tablet,delayed release RxNorm: 272124 Take 1 Tablet(s) Oral QD 09/04/19 021 Inactive Levemir FlexTouch U-100 Insulin 100 unit/mL (3 mL) subcutaneous pen RxNorm: 583535 Inject 150 Unit(s) Subcutaneous BID 09/04/19 022 Inactive venlafaxine ER 150 mg tablet,extended release 24 hr RxNorm: 741856 Take 1 Tablet(s) Oral QD 09/04/19 021 Inactive clotrimazole-betame thasone 1 %-0.05 % topical cream RxNorm: 663030 Apply to rash on red area on left abdomen/chest Topical BID 08/10/19 21 021 Inactive amlodipine 5 mg tablet RxNorm: 201146 Take 1 Tablet(s) Oral QD 07/31/19 Inactive cephalexin 500 mg tablet RxNorm: 176082 Take 1 Tablet(s) Oral BID BID - Twice Daily 07/31/19 021 Inactive Start 08/01/20 pantoprazole 40 mg tablet,delayed release RxNorm: 771276 Take 1 Tablet(s) Oral QAM every morning 07/08/19 022 Inactive senna 8.6 mg tablet RxNorm: 132586 Take 1 Tablet(s) Oral QD 07/08/19 022 Inactive pravastatin 80 mg tablet RxNorm: 541428 Take 1 Tablet(s) Oral QHS every night at bedtime 07/08/19 022 Inactive clotrimazole 1 % topical cream RxNorm: 065117 Apply to bilateral groin areas Topical BID 07/08/19 022 Inactive carbamazepine 200 mg tablet RxNorm: 654893 Take 1 Tablet(s) Oral BID 07/08/19 022 Inactive torsemide 20 mg tablet RxNorm: 203560 Take 1 Tablet(s) Oral QD 07/08/19 023 Inactive clopidogrel 75 mg tablet RxNorm: 767976 Take 1 Tablet(s) Oral QD 07/08/19 021 Inactive Blood Glucose Test strips RxNorm: Use 1 Test Strip QID at PRN 07/08/19 21 Inactive E11.42 Novolog Flexpen U-100 Insulin aspart 100 unit/mL (3 mL) subcutaneous RxNorm: 6764222 Administer per sliding scale Milliliter(s) Subcutaneous TID 151-200: 10 u; 201-250: 20 u; 251-300: 30 u; 301-350: 40 u; 351-400: 50 u. 07/08/19 21 022 Inactive lisinopril 5 mg tablet RxNorm: 849763 Take 1 Tablet(s) Oral QD 07/08/19 Inactive Novolog Flexpen U-100 Insulin aspart 100 unit/mL (3 mL) subcutaneous RxNorm: 5976070 Inject 85 Unit(s) Subcutaneous TID 07/08/19 Inactive metoprolol succinate ER 200 mg tablet,extended release 24 hr RxNorm: 654043 Take 1 Tablet(s) Oral QD 07/08/19 21 Inactive Vitamin D3 25 mcg (1,000 unit) tablet RxNorm: 605595 Take 1 Tablet(s) Oral QD 07/08/19 Inactive isosorbide dinitrate 30 mg tablet RxNorm: 526860 Take 1 Tablet(s) Oral QD 07/08/19 021 Inactive Levemir FlexTouch U-100 Insulin 100 unit/mL (3 mL) subcutaneous pen RxNorm: 289997 Inject 140 Unit(s) Subcutaneous BID 07/08/19 Inactive venlafaxine 75 mg tablet RxNorm: 113552 Take 1 Tablet(s) Oral QD 07/08/19 Inactive acetaminophen 500 mg tablet RxNorm: 829272 Take 1 Tablet(s) Oral TID as needed for headache 06/18/19 21 Inactive acetaminophen 500 mg tablet RxNorm: 684352 Take 1 Tablet(s) Oral TID as needed for headache 06/18/19 21 Inactive Lyrica 100 mg capsule RxNorm: 684335 Take 1 Capsule(s) Oral QHS every night at bedtime 06/11/19 21 021 Inactive Lyrica 50 mg capsule RxNorm: 595955 Take 1 Capsule(s) Oral QAM every morning 06/10/19 21 021 Inactive hydrocortisone 2.5 % topical cream RxNorm: 306565 Apply to bilateral groin creases Topical BID 05/15/20 20 021 Inactive clotrimazole 1 % topical cream RxNorm: 623135 Apply to bilateral groin areas Topical BID 05/15/20 20 021 Inactive Lyrica 50 mg capsule RxNorm: 647351 Take 1 Capsule(s) Oral QAM every morning 05/14/20 20 Inactive Lyrica 100 mg capsule RxNorm: 597920 Take 1 Capsule(s) Oral QHS every night [...] Inactive Nystop 100,000 unit/gram topical powder RxNorm: 361336 Apply to abd folds, under breasts and L side of groin Topical BID x 14 days, then BID PRN 04/08/20 20 021 Inactive dx: yeast dermatitis Lyrica 100 mg capsule RxNorm: 694275 Take 1 Capsule(s) Oral QHS every night at bedtime 03/13/20 20 020 Inactive Lyrica 50 mg capsule RxNorm: 996648 Take 1 Capsule(s) Oral QAM every morning 03/13/20 20 Inactive ketoconazole 2 % shampoo RxNorm: 535413 Apply Topical two times a week with showers 03/11/20 20 Inactive cholecalciferol (vitamin D3) 50 mcg (2,000 unit) tablet RxNorm: 886508 Take 1 Tablet(s) Oral QD 03/11/20 20 Inactive Zetia 10 mg tablet RxNorm: 963924 Take 1 Tablet(s) Oral QD 03/07/20 20 Inactive Zetia 10 mg tablet RxNorm: 320802 Take 1 Tablet(s) Oral QD 03/07/20 20 Inactive Lyrica 50 mg capsule RxNorm: 331547 Take 1 Capsule(s) Oral QAM every morning 02/15/20 20 Inactive Lyrica 100 mg capsule RxNorm: 171516 Take 1 Capsule(s) Oral QHS every night at bedtime 02/15/20 20 Inactive Lyrica 100 mg capsule RxNorm: 810718 Take 1 Capsule(s) Oral QHS every night at bedtime 02/15/20 20 Inactive Lyrica 50 mg capsule RxNorm: 447021 Take 1 Capsule(s) Oral QAM every morning 02/15/20 20 Inactive venlafaxine ER 75 mg capsule,extended release 24 hr RxNorm: 391841 Take 3 Capsule(s) Oral QD 06/12/2021 Activepolyethylene glycol 3350 17 gram/dose oral powderRxNorm: 597990Ttnd 17=1 capful Gram(s) Oral BID as needed mix with 4-8oz of ymdfze6806/12/2021ctive Levemir FlexTouch U-100 Insulin 100 unit/mL (3 mL) subcutaneous penRxNorm: 031072Yshpxf 80 Unit(s) Subcutaneous BID/Inactiveloperamide 2 mg capsuleRxNorm: 802370Ltrn 1 Capsule(s) Oral QID as ecmuwx5106/12/2021ctive Novolog Flexpen U-100 Insulin aspart 100 unit/mL (3 mL) subcutaneousRxNorm: 3968193Zppidq 30 Unit(s) Subcutaneous TID with mealsInactive Medication [...] BP > OR = 140 CPT-4: G8753 01/06/2022 CUI BP LESS 90 CPT-4: G8754 01/06/2022 DEBRIDE NAIL 6 OR MORE CPT-4: 27785 2 Vital Signs Date Vital 01/06/2022 Blood Pressure 1: 147/72 Code: 8480-6 Heart Rate 1: 72 bpm Code: 8867-4 Respiratory Rate: 17 bpm Temperature: 36.4 (C) / 97.5 (F) Reason For Visit No Reason For Visit data Encounters Encounter Performer Location Location Address Codes Cristiano e ([id number]) DOMICIL VISIT EST CARLO Benitez Diagnosis: Dandruff in adult[ICD10: L21.0] Diagnosis: Onychogryposis[ICD10: L60.2] Diagnosis: Type 2 diabetes mellitus with diabetic polyneuropathy, with long-term current use of insulin[ICD10: E11.42] Diagnosis: Hyperlipidemia associated with type 2 diabetes mellitus[ICD10: E11.69] Diagnosis: Hypertension associated with diabetes[ICD10: E11.59] Diagnosis: Stage 2 chronic 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[ICD10: E11.22] Diagnosis: Hypertensive heart disease without heart failure[ICD10: I11.9] 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 [id number] USReferralRecords Ymbfpkow05/08/2023Referral: [facility] WPtel: [address] [id number]/12/2022Referral: General CardiologyReferralCompleted 1Referral: General PsychologistReferralClosed Instructions Comment Date Leonid is a Male being seen living at [facility]. Initial BPS visit 01/2020. PMHx including DMII, CAD w/ 5 stents, Depression, Seizure Disorder and CKD stage 3. He moved into [facility] in 12/2019 but after a hospitalization 05/2021 he moved to the [facility] to have closer nursing attention. Sister Jyotsna involved in his care cell# [phone] Guardian: Don (tapan met in person 09/01/21), now has Lexii (same group as don)Lab Schedule: * 10/06/2022 Onychogryposis (*8*) toenails debrided today, (*4*) on left foot, (*4*) on right foot. Medical grade nail clippersand electric dremel used to significantly reduce length & thickness. Anti-fungal treatment options reviewed, discussion deferred as treatment not appropriate or beneficial to patient. Patient tolerated procedure well. Ischemic Heart Disease schedule f/u with field clerk Diabetes BG log reviewed, much improved since 12/09 when novolog increased from 36 to 42 TID with meals. Highest 388, lowest 109, most 180-250 with exception of yesterday 01/05 where BG were 321, 229, 366, and 388. Will make no changes since patient has a f/u with endo via telehealth on jan 13.?? Hypertension Patient to schedule f/u with field clerk due CP when laying down. Consider GERD being cause as well. Encouraged avoidance of foods that make indigestion worse and not to lay down for at least 30 minutes after eating.Continue PPI. BPs reviewed and variable but mostly 150/70s. Likely needs a dose adjustment, would like field clerk to weigh in.?? [facility] (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 insulin Due to DM2 - see DM2 Dermatitis Ketoconazole working well, needs a refill, staff to call pharmacy.?? .01/06/2022
--- OUTSIDE RECORDS SUMMARY | 2022-11-09 23:27 | XMS_ITS | CCD ---
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 Name Role Phone Tapan Shirley PA-C Primary Care Provider Unavailabl e Tapan Shirley PA-C Chronic Care Management Unavaila ble Summary Purpose DataExchange Insurance Providers Payer name Policy type / Coverage type Covered green party ID Effective Begin Date Effective End Date Medicare [place] Medicare Part B [id number] Unknown Unknown Medicaid [place] Medicare Part B [id number] Unknown Unknown Family history Sister Brittany Suggs Diagnosis Age At Onset No Family Disease Entered N/A Runs in the family Diagnosis Age At Onset No Known Diseases N/A Sister Blanka Mcduffie Diagnosis Age At Onset No Family Disease Entered N/A Social History Social History Element Codes Description Effec tive Dates Marital status Unknown Single 10/07/2021 Living arrangements Unknown [facility] 09/03/[address]: 3663452 Non-Smoker / No History of Smoking 09/02/[address]: 106819650 No Alcohol Consum ption 09/02/2020 Allergies, Adverse Reactions, Alerts Substance Reaction Codes Entered Date Inactivated Date Status LISINOPRIL RxNorm: 8840637No Inactive DateActiveMetformin CHpAvlwyzq78/28/2020No Inactive DateActive Problems Condition Codes Effective Dates Condition St atus BMI 60.0-69.9, adult ICD-10: Z68.44 ICD-9: V85.4409/2ActiveHx of deep venous thrombosisICD-10: Z86.718 ICD-9: V12.5109/2ActiveHypercoagulable stateICD-10: D68.59 ICD-9: 289.8109/2ActiveHypertensive heart disease without heart failure ICD-10: I11.9 ICD-9: 402.9009/2ActiveOnychogryposisICD-10: L60.2 ICD-9: 703.809/ctiveParaparesis of both lower limbsICD-10: G82.20 ICD-9: 344.109/ctivePVD (peripheral vascular disease)ICD-10: I73.9 ICD-9: 443.909/ctiveRecurrent major depressive disorder, in partial remissionICD-10: F33.41 ICD-9: 296.3509/ctiveDepressionICD-10: F32.9 ICD-9: 15510/2ResolvedDVT (deep venous thrombosis)ICD-10: I82.409 ICD-9: 453.4009esolvedEncounter for immunizationICD-10: Z23 ICD-9: V03.89092ResolvedLong term (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 insulinICD-10: Z79.4 2ResolvedMuscular painICD-10: M79.10 ICD-9: 729.109esolvedPain of right heelICD-10: M79.671 ICD-9: 729.509esolvedCoronary artery disease involving craig coronary artery of craig heart, angina presence unspecifiedICD-10: I25.10 ICD-9: 414.0108ctiveDandruff in adultICD-10: L21.0 ICD-9: 690.1808ctiveHyperlipidemia associated with type 2 diabetes mellitusICD-10: E11.69 ICD-9: 250.80082ActiveStage 2 chronic 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ICD-10: E11.22 ICD-9: 250.40082ActiveType 2 diabetes mellitus with diabetic polyneuropathy, with long-term current use of insulinICD-10: E11.42 ICD-9: 250.60082ActiveHypertension associated with diabetesICD-10: E11.59 ICD-9: 250.8008/2ResolvedHistory of [...] L03.90 ICD-9: 682.910/ctiveCallus of heelICD-10: L84 ICD-9: 05140/ctiveImpacted cerumen, left earICD-10: H61.22 ICD-9: 380.408/ctiveContact with and (suspected) exposure to covid-19 ICD-10: Z20.822 ICD-9: V01.7908/17/2021ResolvedOther infective acute otitis externa of left ear ICD-10: H60.392 ICD-9: 380.1008/1ResolvedScrotal skin lesionICD-10: N50.9 ICD-9: 608.908/1ResolvedTinea pedisICD-10: B35.3 ICD-9: 110.408/1ResolvedAnemia due to stage 3b chronic kidney diseaseICD- 10: N18.32 ICD-9: 285.21051ResolvedChronic kidney disease, stage 3 unspecifiedICD- 10: N18.3004/1ResolvedContact with and (suspected) exposure to other viral communicable diseasesICD-10: Z20.828 ICD-9: V01.791ResolvedHyperhidrosis of palmsICD-10: L74.512 ICD-9: 705.2019XwnklcChpvwoozDqrqxhq47/28/2020ActiveDiabetes mellitus Type 1Avfctqm34/28/2020ActiveAnemia in chronic kidney diseaseICD-10: D63.1 02/12/2020ResolvedHyperlipidemia, unspecifiedICD-10: E78.Resolved Medications Medication Codes Instructions Start Date Stop Date Status Fill Instructions Shingrix (PF) 50 mcg/0.5 mL intramuscular suspension, kit RxNorm: 6203026 Administer 1/2 Milliliter(s) Intramuscular QD one time shingrix step 2 ( step 1 given 11/04/21) WITH needle - Nursing please administer upon arrival and once administered 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, squeegee operator, 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, and lot# so we can update MIIC 02/18/20 22 022 Inactive dispense with needle Shingrix (PF) 50 mcg/0.5 mL intramuscular suspension, kit RxNorm: 3213612 Administer 1/2 Milliliter(s) Intramuscular QD one time shingrix step 2 ( step 1 given 11/04/21) WITH needle - Nursing please administer upon arrival and once administered 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, squeegee operator, 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, and lot# so we can update MIIC 02/18/20 022 Inactive dispense with needle acetaminophen 500 mg tablet RxNorm: 119341 Take 1 Tablet(s) Oral TID 01/08/20 22 023 Active d/c PRN order Lyrica 150 mg capsule RxNorm: 733865 Take 1 Capsule(s) Oral QHS every night at bedtime 01/08/20 22 023 Inactive d/c 100mg dose polyethylene glycol 3350 17 gram/dose oral powder RxNorm: 061636 Take 17=1 capful Gram(s) Oral QD mix with 4-8oz of liquid 01/08/20 22 023 Active take this in addition to BID prn order Lyrica 100 mg capsule RxNorm: 825674 Take 1 Capsule(s) Oral QAM every morning 01/08/20 22 022 Inactive d/c 50mg dose Abilify 5 mg tablet RxNorm: 825817 Take 1 Tablet(s) Oral QD take 1 tab po QD #30 refill 5 dx: MDD 12/12/19 22 022 Inactive Abilify 5 mg tablet RxNorm: 336010 Take 1 Tablet(s) Oral QD take 1 tab po QD #30 refill 5 dx: MDD 12/12/19 22 022 Inactive chlorthalidone 25 mg tablet RxNorm: 248754 Take 1 Tablet(s) Oral QAM every morning 12/10/19 22 023 Active Novolog Flexpen U-100 Insulin aspart 100 unit/mL (3 mL) subcutaneous RxNorm: 1414097 Inject 42 Unit(s) Subcutaneous TID in addition to sliding scale 12/10/19 22 022 Inactive d/c 36u pregabalin 50 mg capsule RxNorm: 213571 Take 1 Capsule(s) Oral QAM every morning 11/12/19 22 022 Inactive tetanus-diphtheria toxoids-Td 2 Lf unit-2 Lf unit/0.5 mL IM suspension RxNorm: 139 Take 0.5 Miscellaneous Intramuscular 11/12/19 22 022 Inactive need tdap - nursing to administer upon arrival pregabalin 50 mg capsule RxNorm: 013518 Take 1 Capsule(s) Oral QAM every morning 10/16/19 22 022 Inactive pregabalin 50 mg capsule RxNorm: 512173 Take 1 Capsule(s) Oral QAM every morning 10/16/19 22 022 Inactive pregabalin 50 mg capsule RxNorm: 911236 1 Capsule(s) Oral QAM every morning 10/15/19 22 022 Inactive Shingrix (PF) 50 mcg/0.5 mL intramuscular suspension, kit RxNorm: 5782202 Administer 1/2 Milliliter(s) Intramuscular one time Nursing please administer upon arrival and once administered 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, squeegee operator, 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 10/09/19 22 022 Inactive shingrix step 1 Shingrix (PF) 50 mcg/0.5 mL intramuscular suspension, kit RxNorm: 6736383 Administer 1/2 Milliliter(s) Intramuscular one time Nursing please administer upon arrival and once administered 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, squeegee operator, 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 10/09/19 22 022 Inactive shingrix step 1 Novolog Flexpen U-100 Insulin aspart 100 unit/mL (3 mL) subcutaneous RxNorm: 8480590 Inject 10 Unit(s) Subcutaneous QHS every night at bedtime with nighttime snack 10/08/19 22 022 Inactive cholecalciferol (vitamin D3) 1,250 mcg (50,000 unit) capsule RxNorm: 773253 Take 1 Capsule(s) Oral QW once a [...] 50 mcg/0.5 mL intramuscular suspension, kit RxNorm: 9206546 ADMINISTER 2-DOSE SERIES PER CDC GUIDELINES 10/08/19 22 Active Shingrix (PF) 50 mcg/0.5 mL intramuscular suspension, kit RxNorm: 3166059 ADMINISTER 2-DOSE SERIES PER CDC GUIDELINES 10/08/19 22 Inactive Novolog Flexpen U-100 Insulin aspart 100 unit/mL (3 mL) subcutaneous RxNorm: 6691483 Inject 36 Unit(s) Subcutaneous TID in addition to sliding scale 10/08/19 22 Inactive Novofine Autocover 30 gauge x 1/3 needle RxNorm: Use 1 Miscellaneous UD as directed Use 1 needle as directed to administer insulin 5 times a day Dx:E11.42. 10/03/19 Inactive ok to substitute with any covered alternative pen needle benzoyl peroxide 10 % topical cleanser RxNorm: 016684 Apply 1 Application Topical QD apply to face, wash rinse and dry once daily (may change to QOD if drying) 08/19/19 22 022 Inactive (%covered by insurance) #60ml refill 11 dx: acne Lyrica 100 mg capsule RxNorm: 092262 Take 1 Capsule(s) Oral QHS every night at bedtime Take 1 capsule by mouth once daily at bedtime 08/19/19 22 Inactive benzoyl peroxide 10 % topical cleanser RxNorm: 644469 Apply 1 Application Topical QD apply to face, wash rinse and dry once daily (may change to QOD if drying) 08/19/19 022 Inactive (%covered by insurance) #60ml refill 11 dx: acne benzoyl peroxide 10 % topical cleanser RxNorm: 151955 Apply 1 Application Topical QD apply to face, wash rinse and dry once daily (may change to QOD if drying) 08/19/19 22 022 Inactive (%covered by insurance) #60ml refill 11 dx: acne Lyrica 50 mg capsule RxNorm: 953950 Take 1 Capsule(s) Oral QAM every morning Take 1 capsule by mouth once daily 08/19/19 22 022 Inactive benzoyl peroxide 10 % topical cleanser RxNorm: 421316 Apply 1 Application Topical QD apply to face, wash rinse and dry once daily (may change to QOD if drying) 08/19/19 22 022 Inactive (%covered by insurance) #60ml refill 11 dx: acne Lyrica 100 mg capsule RxNorm: 905901 Take 1 Capsule(s) Oral QHS every night at bedtime Take 1 capsule by mouth once daily at bedtime 08/16/19 22 022 Inactive Lyrica 50 mg capsule RxNorm: 052372 Take 1 Capsule(s) Oral QAM every morning Take 1 capsule by mouth once daily 08/16/19 22 022 Inactive Levemir FlexTouch U-100 Insulin 100 unit/mL (3 mL) subcutaneous pen RxNorm: 185484 Inject 86 Unit(s) Subcutaneous BID 08/05/19 22 022 Inactive d/c 83units BID Lyrica 100 mg capsule RxNorm: 794819 Take 1 Capsule(s) Oral QHS every night at bedtime Take 1 capsule by mouth once daily at bedtime 07/14/19 22 022 Inactive Lyrica 50 mg capsule RxNorm: 927914 Take 1 Capsule(s) Oral QAM every morning Take 1 capsule by mouth once daily 07/14/19 22 022 Inactive Levemir FlexTouch U-100 Insulin 100 unit/mL (3 mL) subcutaneous pen RxNorm: 780781 Inject 83 Unit(s) Subcutaneous BID 07/08/19 22 [...] test strip hydralazine 50 mg tablet RxNorm: 038603 Take 1 Tablet(s) Oral QID 05/05/20 21 Inactive isosorbide mononitrate ER 30 mg tablet,extended release 24 hr RxNorm: 737236 Take 1 Tablet(s) Oral QD 05/05/20 No Stop Date Active venlafaxine ER 225 mg tablet,extended release 24 hr RxNorm: 428736 Take 1 Tablet(s) Oral QD 05/05/20 21 Inactive venlafaxine ER 225 mg tablet,extended release 24 hr RxNorm: 385063 Take 1 Tablet(s) Oral QD 05/05/20 21 022 Inactive hydralazine 50 mg tablet RxNorm: 965363 Take 1 Tablet(s) Oral QID 05/05/20 21 Inactive aspirin 81 mg tablet,delayed release RxNorm: 011105 Take 1 Tablet(s) Oral QD 03/31/20 21 Inactive Zetia 10 mg tablet RxNorm: 414712 Take 1 Tablet(s) Oral QD 03/31/20 21 Inactive Vitamin D2 1,250 mcg (50,000 unit) capsule RxNorm: 8946979 Take 1 Capsule(s) Oral QW once a week x 12 weeks 03/31/20 022 Inactive Vitamin D2 1,250 mcg (50,000 unit) capsule RxNorm: 0817975 Take 1 Capsule(s) Oral QW once a week 03/31/20 Inactive Zetia 10 mg tablet RxNorm: 827798 Take 1 Tablet(s) Oral QD 03/31/20 021 Inactive hydralazine 25 mg tablet RxNorm: 748906 Take 1 Tablet(s) Oral QID 03/31/20 021 Inactive hydralazine 25 mg tablet RxNorm: 882306 Take 1 Tablet(s) Oral QID 03/31/20 Inactive hydralazine 10 mg tablet RxNorm: 966021 Take 1 Tablet(s) Oral QID 03/03/20 021 Inactive cephalexin 500 mg tablet RxNorm: 650912 Take 1 Tablet(s) Oral QID 02/27/20 021 Inactive cephalexin 500 mg tablet RxNorm: 952855 Take 1 Tablet(s) Oral QID 02/27/20 021 Inactive lisinopril 40 mg tablet RxNorm: 681271 Take 1 Tablet(s) Oral QD 02/11/20 023 Inactive Eliquis 5 mg tablet RxNorm: 3095426 Take 1 Tablet(s) Oral BID 01/05/20 022 Inactive Eliquis 5 mg tablet RxNorm: 0693712 Take 2 Tablet(s) Oral QD 01/01/20 21 021 Inactive Lyrica 50 mg capsule RxNorm: 483877 Take 1 Capsule(s) Oral QAM every morning 12/24/19 21 021 Inactive Lyrica 100 mg capsule RxNorm: 167709 Take 1 Capsule(s) Oral QHS every night at bedtime 12/24/19 21 021 Inactive clotrimazole 1 % topical cream RxNorm: 587633 Apply to right foot and toes Topical BID 12/04/19 21 023 Inactive metoprolol succinate ER 200 mg tablet,extended release 24 hr RxNorm: 877587 Take 1 Tablet(s) Oral QD 12/04/19 023 Inactive ciprofloxacin 500 mg tablet RxNorm: 701124 Take 1 Tablet(s) Oral QD 11/30/19 21 021 Inactive DX ofloxacin otic drops Accu-Chek Guide test strips RxNorm: USE 1 TO CHECK GLUCOSE 4 TIMES DAILY AND NEEDED 11/15/19 21 023 Inactive Blood Glucose Test strips RxNorm: Use 1 Test Strip QID at PRN 11/05/19 21 023 Inactive E11.42 lisinopril 30 mg tablet RxNorm: 421768 Take 1 Tablet(s) Oral QD 10/30/19 021 Inactive lisinopril 20 mg tablet RxNorm: 846506 Take 1 Tablet(s) Oral QD 10/23/19 021 Inactive lisinopril 20 mg tablet RxNorm: 492833 Take 1 Tablet(s) Oral QD 10/23/19 21 021 Inactive lisinopril 10 mg tablet RxNorm: 100567 Take 1 Tablet(s) Oral QD 10/02/19 021 Inactive icosapent ethyl 1 gram capsule RxNorm: 2854504 Take 2 Capsule(s) (2 gm) Oral BID with meals 09/12/19 022 Inactive Okay to dispense one 2gm tab if you have that available. icosapent ethyl 1 gram capsule RxNorm: 6077234 Take 2 Capsule(s) Oral BID 09/12/19 21 021 Inactive Okay to dispense one 2gm tab if you have that available. amlodipine 10 mg tablet RxNorm: 683169 Take 1 Tablet(s) Oral QD 09/04/19 022 Inactive aspirin 81 mg tablet,delayed release RxNorm: 865832 Take 1 Tablet(s) Oral QD 09/04/19 21 021 Inactive Levemir FlexTouch U-100 Insulin 100 unit/mL (3 mL) subcutaneous pen RxNorm: 072833 Inject 150 Unit(s) Subcutaneous BID 04/20/ 022 Inactive venlafaxine ER 150 mg tablet,extended release 24 hr RxNorm: 566146 Take 1 Tablet(s) Oral QD 09/04/19 021 Inactive clotrimazole-betame thasone 1 %-0.05 % topical cream RxNorm: 867265 Apply to rash on red area on left abdomen/chest Topical BID 08/10/19 21 Inactive amlodipine 5 mg tablet RxNorm: 874353 Take 1 Tablet(s) Oral QD 07/31/19 21 Inactive cephalexin 500 mg tablet RxNorm: 863335 Take 1 Tablet(s) Oral BID BID - Twice Daily 07/31/19 021 Inactive Start 08/01/20 pantoprazole 40 mg tablet,delayed release RxNorm: 590099 Take 1 Tablet(s) Oral QAM every morning 07/08/19 022 Inactive senna 8.6 mg tablet RxNorm: 571842 Take 1 Tablet(s) Oral QD 07/08/19 022 Inactive pravastatin 80 mg tablet RxNorm: 749311 Take 1 Tablet(s) Oral QHS every night at bedtime 07/08/19 022 Inactive clotrimazole 1 % topical cream RxNorm: 696346 Apply to bilateral groin areas Topical BID 07/08/19 21 022 Inactive carbamazepine 200 mg tablet RxNorm: 108763 Take 1 Tablet(s) Oral BID 07/08/19 022 Inactive torsemide 20 mg tablet RxNorm: 942320 Take 1 Tablet(s) Oral QD 07/08/19 21 023 Inactive clopidogrel 75 mg tablet RxNorm: 903611 Take 1 Tablet(s) Oral QD 07/08/19 021 Inactive Blood Glucose Test strips RxNorm: Use 1 Test Strip QID at PRN 07/08/19 21 021 Inactive E11.42 Novolog Flexpen U-100 Insulin aspart 100 unit/mL (3 mL) subcutaneous RxNorm: 7566451 Administer per sliding scale Milliliter(s) Subcutaneous TID 151-200: 10 u; 201-250: 20 u; 251-300: 30 u; 301-350: 40 u; 351-400: 50 u. 07/08/19 022 Inactive lisinopril 5 mg tablet RxNorm: 706524 Take 1 Tablet(s) Oral QD 07/08/19 21 021 Inactive Novolog Flexpen U-100 Insulin aspart 100 unit/mL (3 mL) subcutaneous RxNorm: 4136843 Inject 85 Unit(s) Subcutaneous TID 07/08/19 022 Inactive metoprolol succinate ER 200 mg tablet,extended release 24 hr RxNorm: 118700 Take 1 Tablet(s) Oral QD 07/08/19 Inactive Vitamin D3 25 mcg (1,000 unit) tablet RxNorm: 808653 Take 1 Tablet(s) Oral QD 07/08/19 Inactive isosorbide dinitrate 30 mg tablet RxNorm: 022740 Take 1 Tablet(s) Oral QD 07/08/19 Inactive Levemir FlexTouch U-100 Insulin 100 unit/mL (3 mL) subcutaneous pen RxNorm: 301186 Inject 140 Unit(s) Subcutaneous BID 07/08/19 Inactive venlafaxine 75 mg tablet RxNorm: 614312 Take 1 Tablet(s) Oral QD 07/08/19 Inactive acetaminophen 500 mg tablet RxNorm: 671401 Take 1 Tablet(s) Oral TID as needed for headache 06/18/19 Inactive acetaminophen 500 mg tablet RxNorm: 980110 Take 1 Tablet(s) Oral TID as needed for headache 06/18/19 021 Inactive Lyrica 100 mg capsule RxNorm: 736212 Take 1 Capsule(s) Oral QHS every night at bedtime 06/11/19 Inactive Lyrica 50 mg capsule RxNorm: 113412 Take 1 Capsule(s) Oral QAM every morning 06/10/19 021 Inactive hydrocortisone 2.5 % topical cream RxNorm: 239953 Apply to bilateral groin creases Topical BID 05/15/20 Inactive clotrimazole 1 % topical cream RxNorm: 315671 Apply to bilateral groin areas Topical BID 05/15/20 20 Inactive Lyrica 50 mg capsule RxNorm: 978965 Take 1 Capsule(s) Oral QAM every morning 05/14/20 20 Inactive Lyrica 100 mg capsule RxNorm: 549239 Take 1 Capsule(s) Oral QHS every night [...] Inactive Nystop 100,000 unit/gram topical powder RxNorm: 413218 Apply to abd folds, under breasts and L side of groin Topical BID x 14 days, then BID PRN 04/08/20 20 021 Inactive dx: yeast dermatitis Lyrica 100 mg capsule RxNorm: 368518 Take 1 Capsule(s) Oral QHS every night at bedtime 03/13/20 20 Inactive Lyrica 50 mg capsule RxNorm: 698763 Take 1 Capsule(s) Oral QAM every morning 03/13/20 20 Inactive ketoconazole 2 % shampoo RxNorm: 860373 Apply Topical two times a week with showers 03/11/20 20 Inactive cholecalciferol (vitamin D3) 50 mcg (2,000 unit) tablet RxNorm: 434611 Take 1 Tablet(s) Oral QD 03/11/20 Inactive Zetia 10 mg tablet RxNorm: 500425 Take 1 Tablet(s) Oral QD 03/07/20 20 Inactive Zetia 10 mg tablet RxNorm: 877038 Take 1 Tablet(s) Oral QD 03/07/20 20 Inactive Lyrica 50 mg capsule RxNorm: 457525 Take 1 Capsule(s) Oral QAM every morning 02/15/20 20 Inactive Lyrica 100 mg capsule RxNorm: 705674 Take 1 Capsule(s) Oral QHS every night at bedtime 02/15/20 Inactive Lyrica 100 mg capsule RxNorm: 703079 Take 1 Capsule(s) Oral QHS every night at bedtime 02/15/20 20 Inactive Lyrica 50 mg capsule RxNorm: 587062 Take 1 Capsule(s) Oral QAM every morning 02/15/20 Inactive venlafaxine ER 75 mg capsule,extended release 24 hr RxNorm: 841948 Take 3 Capsule(s) Oral QD 06/12/2021 Activepolyethylene glycol 3350 17 gram/dose oral powderRxNorm: 261984Aker 17=1 capful Gram(s) Oral BID as needed mix with 4-8oz of amxqkz5306/12/2021ctive Levemir FlexTouch U-100 Insulin 100 unit/mL (3 mL) subcutaneous penRxNorm: 250059Egjeep 80 Unit(s) Subcutaneous BID07/14//Inactiveloperamide 2 mg capsuleRxNorm: 870924Zjrv 1 Capsule(s) Oral QID as aqdmxg7406/12/2021ctive Novolog Flexpen U-100 Insulin aspart 100 unit/mL (3 mL) subcutaneousRxNorm: 2731670Egcajw 30 Unit(s) Subcutaneous TID with meals/Inactive Medication [...] Total PSA Prostate Specific Antigen (PSA), Total 72142-8 0.20 ng/mL 03/17/20 Unknown Complete Metabolic Panel (CMP) CMP A/G Ratio 1.3 ppm 03/17/20 Unknown Complete Metabolic Panel (CMP) CMP Albumin 1751-7 3.6 g/dL 03/17/20 22 Unknown Complete Metabolic Panel (CMP) CMP Alkaline Phosphatase 97 U/L 03/17/20 22 Unknown Complete Metabolic Panel (CMP) CMP ALT (SGPT) 29 U/L 03/17/20 22 Unknown Complete Metabolic Panel (CMP) CMP AST (SGOT) 25.1 U/L 03/17/20 Unknown Complete Metabolic Panel (CMP) CMP BILIRUBIN, TOTAL 1975-2 < 0.15 mg/dL 03/17/20 Unknown Complete Metabolic Panel (CMP) CMP Blood Urea Nitrogen (BUN) 36 mg/dL 03/17/20 Unknown Complete Metabolic Panel (CMP) CMP BUN/CREATININE RATIO 29.26 ratio 03/17/20 22 Unknown Complete Metabolic Panel (CMP) CMP Calcium (Ca) 61682-3 8.4 mg/dL 03/17/20 22 Unknown Complete Metabolic Panel (CMP) CMP Carbon Dioxide (ECO2) 28 mmol/L 03/17/20 22 Unknown Complete Metabolic Panel (CMP) CMP Chloride (Cl) 2075-0 106 mmol/L 03/17/20 22 Unknown Complete Metabolic Panel (CMP) CMP Creatinine 2160-0 1.22 mg/dL 03/17/20 22 Unknown Complete Metabolic Panel (CMP) CMP eGFR 64.00 mL/min/1.7 3m2 03/17/20 22 Unknown Complete Metabolic Panel (CMP) CMP eGFR 36036-9 77.00 mL/min/1.7 3m2 03/17/20 22 Unknown Complete Metabolic Panel (CMP) CMP Globulin, Total 2.7 ppm 03/17/20 22 Unknown Complete Metabolic Panel (CMP) CMP Glucose 249 mg/dL 03/17/20 22 Unknown Complete Metabolic Panel (CMP) CMP Potassium (K) 2823-3 4.3 mmol/L 03/17/20 22 Unknown Complete Metabolic Panel (CMP) CMP PROTEIN, TOTAL 2885-2 6.3 g/dL 03/17/20 22 Unknown Complete Metabolic Panel (CMP) CMP Sodium (Na) 2951-2 141 mmol/L 03/17/20 22 Unknown Vitamin B12 VITAB12 Vitamin B12 2132-9 313 pg/mL 22 Unknown Vitamin D, 25-Hydroxy VITAD25 Vitamin D, 25-Hydroxy 90646-4 33 ng/mL 03/17/20 22 Unknown TSH Reflex to FT4 TSHRFT4 TSH 86989-3 1.88 uIU/mL 03/17/20 22 Unknown CBC without [...] 22 Unknown Hemoglobin A1c HEMOGLOBA Hemoglobin A1c 10549-8 9.4 %A1c 03/17/20 22 Unknown PDFReport PDFReport PDFReport 03/16/20 22 Unknown Procedures Procedure Codes Date DEBRIDE NAIL 6 OR MORE CPT-4: 04547 2 Vital Signs Date Vital 02/10/2022 Blood Pressure 1: 152/51 Code: 8480-6 BMI: NaN Code: 77833-9 Heart Rate 1: 79 bpm Code: 8867-4 Height: 5'5 Code: 8302-2 Respiratory Rate: 18 bpm Temperature: 36.3 (C) / 97.4 (F) Weight: 407 lbs Code: 3141-9 Reason For Visit No Reason For Visit data Encounters Encounter Performer Location Location Address Codes Cristiano e ([id number]) DOMICIL VISIT EST CARLO T Diagnosis: BMI 60.0-69.9, adult[ICD10: Z68.44] Diagnosis: Hypercoagulable state[ICD10: D68.59] Diagnosis: Hx of deep venous thrombosis[ICD10: Z86.718] Diagnosis: PVD (peripheral vascular disease)[ICD10: I73.9] Diagnosis: Hypertensive heart disease without heart failure[ICD10: I11.9] Diagnosis: Recurrent major depressive disorder, in partial remission[ICD10: F33.41] Diagnosis: Paraparesis of both lower limbs[ICD10: 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] Diagnosis: Onychogryposis[ICD10: L60.2][facility] [address] [place] [address]PEN-4: [id number] Plan of Care Planned Activity Notes Codes Status Date Referral: [facility] WPtel: [address], [address] [id number] USReferralRecords Hjnyeqpb69/08/2023Patient Education: Patient Medication PobcueuLfrqwwlil17/27/2022Patient Education: Influenza VaccineCompleted 2Referral: [facility] WPtel: [address] [id number] QXRsauszbjEgqohybee53/12/2022Referral: General CardiologyReferralCompleted 1Referral: General PsychologistReferralClosed Instructions Comment Date Leonid is a Male being seen living at [facility]. Initial BPS visit 01/2020. PMHx including DMII, CAD w/ 5 stents, Depression, Seizure Disorder and CKD stage 3. He moved into [facility] in 12/2019 but after a hospitalization 05/2021 he moved to the [facility] to have closer nursing attention. Sister Jyotsna involved in his care cell# [phone] Guardian: Don (tapan met in person 09/01/21), [...] beneficial to patient. Patient tolerated procedure well. .02/10/2022
--- OUTSIDE RECORDS SUMMARY | 2022-11-09 23:28 | XMS_ITS | CCD ---
Author Name Tapan Shirley PA-C Address [address] [place] [address] Phone Organization [facility] Phone Care Team Providers Care Frame Cleaner Name Role Phone Tapan Shirley PA-C Primary Care Provider Unavailabl e Tapan Shirley PA-C Chronic Care Management Unavaila ble Summary Purpose DataExchange Insurance Providers Payer name Policy type / Coverage type Covered constitution party ID Effective Begin Date Effective End Date Medicare [place] Medicare Part B [id number] Unknown Unknown Medicaid [place] Medicare Part B [id number] Unknown Unknown Family history Sister Brittany Suggs [...] Unknown Snf 09/03/[address]: 7675330 Non-Smoker / No History of Smoking 09/02/[address]: 539026723 No Alcohol Consum ption 09/02/2020 Allergies, Adverse Reactions, Alerts Substance Reaction Codes Entered Date Inactivated Date Status LISINOPRIL RxNorm: 2602227No Inactive DateActiveMetformin EAzBdmcocz18/28/2020No Inactive DateActive Problems Condition Codes Effective Dates Condition St atus Cellulitis ICD-10: L03.90 ICD-9: 682.9102ActiveHyperlipidemia associated with type 2 diabetes mellitusICD-10: E11.69 ICD-9: 250.8012ActiveMajor depression, recurrentICD-10: F33.9 ICD-9: 296.30102ActiveRecurrent major depressive disorder, in partial remissionICD-10: F33.41 ICD-9: 296.3510/ctiveReducible umbilical herniaICD-10: K42.9 ICD-9: 553.110/ctiveStage 2 chronic 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ICD-10: E11.22 ICD-9: 250.4010/ctiveType 2 diabetes mellitus with diabetic polyneuropathy, with long-term current use of insulinICD-10: E11.42 ICD-9: 250.6010/ctiveBMI 60.0-69.9, adultICD-10: Z68.44 ICD-9: V85.4410/ctiveInappropriate sexual behaviorICD-10: Z72.89 ICD-9: 312.8910/ctiveSeizure disorderICD-10: G40.909 ICD-9: 345.9010/ctiveHx of deep venous thrombosisICD-10: Z86.718 ICD-9: V12.5109/ctiveHypercoagulable stateICD-10: D68.59 ICD-9: 289.8109/ctiveHypertensive heart disease without heart failure ICD-10: I11.9 ICD-9: 402.9009/2ActiveOnychogryposisICD-10: L60.2 ICD-9: 703.809/ctiveParaparesis of both lower limbsICD-10: G82.20 ICD-9: 344.109/2ActivePVD (peripheral vascular disease)ICD-10: I73.9 ICD-9: 443.909/ctiveDepressionICD-10: F32.9 ICD-9: 67128/2ResolvedDVT (deep venous thrombosis)ICD-10: I82.409 ICD-9: 453.4009/2ResolvedEncounter for immunizationICD-10: Z23 ICD-9: V03.8909/2ResolvedLong term (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 insulinICD-10: Z79.4 2ResolvedMuscular painICD-10: M79.10 ICD-9: 729.109/2ResolvedPain of right heelICD-10: M79.671 ICD-9: 729.509/esolvedCoronary artery disease involving [place] coronary artery of [place] heart, angina presence unspecifiedICD-10: I25.10 ICD-9: 414.0108/ctiveDandruff in adultICD-10: L21.0 ICD-9: 690.1808/ctiveHypertension associated with diabetesICD-10: E11.59 ICD-9: 250.8008/esolvedHistory of anemia due to CKDICD-10: N18.9 ICD-9: 585.907/ctiveSecondary hypertensionICD-10: I15.9 ICD-9: 405.9907/ctiveStage 2 chronic kidney diseaseICD-10: N18.2 ICD-9: 585.207/ctiveCandidiasis, intertrigoICD-10: B37.2 ICD-9: 112.306/ctiveGout due to renal impairmentICD-10: M10.30 ICD-9: 274.1006/ctivePreventative health careICD-10: Z00.00 ICD-9: V70.006/ctiveLower extremity edemaICD-10: R60.0 ICD-9: 782.305/2ActiveAmputated toe of right footICD-10: S98.131A ICD-9: 895.004/ctiveLearning disabilityICD-10: F81.9 ICD-9: 315.212/ctiveSkin tagICD-10: L91.8 ICD-9: 701.911/1ActiveVitamin D deficiencyICD-10: E55.9 ICD-9: 268.911/ctiveCallus of heelICD-10: L84 ICD-9: 26467/ctiveImpacted cerumen, left earICD-10: H61.22 ICD-9: 380.408/1ActiveContact with [...] Z20.828 ICD-9: V01.7902esolvedHyperhidrosis of palmsICD-10: L74.512 ICD-9: 705.3690TbjzycLjrxoozxLkjwpws33/28/2020ActiveDiabetes mellitus Type 9Lobzbjg92/28/2020ActiveAnemia in chronic kidney diseaseICD-10: D63.1 02/12/2020ResolvedHyperlipidemia, unspecifiedICD-10: E78.509Resolved Medications Medication Codes Instructions Start Date Stop Date Status Fill Instructions Abilify 15 mg tablet RxNorm: 314920 1/2 Tablet(s) Oral QD 03/10/20 22 023 Inactive Shingrix (PF) 50 mcg/0.5 mL intramuscular suspension, kit RxNorm: 5323473 Administer 1/2 Milliliter(s) Intramuscular QD one time shingrix step 2 ( step 1 given 11/04/21) WITH needle - Nursing please administer upon arrival and once administered 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, commercial attorney, 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, and lot# so we can update MIIC 02/18/20 22 022 Inactive dispense with needle Shingrix (PF) 50 mcg/0.5 mL intramuscular suspension, kit RxNorm: 0682063 Administer 1/2 Milliliter(s) Intramuscular QD one time shingrix step 2 ( step 1 given 11/04/21) WITH needle - Nursing please administer upon arrival and once administered 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, commercial attorney, 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, and lot# so we can update MIIC 02/18/20 22 022 Inactive dispense with needle acetaminophen 500 mg tablet RxNorm: 015264 Take 1 Tablet(s) Oral TID 01/08/20 22 023 Active d/c PRN order Lyrica 150 mg capsule RxNorm: 700148 Take 1 Capsule(s) Oral QHS every night at bedtime 01/08/20 22 023 Inactive d/c 100mg dose polyethylene glycol 3350 17 gram/dose oral powder RxNorm: 883318 Take 17=1 capful Gram(s) Oral QD mix with 4-8oz of liquid 01/08/20 22 023 Active take this in addition to BID prn order Lyrica 100 mg capsule RxNorm: 752233 Take 1 Capsule(s) Oral QAM every morning 01/08/20 22 022 Inactive d/c 50mg dose Abilify 5 mg tablet RxNorm: 886732 Take 1 Tablet(s) Oral QD take 1 tab po QD #30 refill 5 dx: MDD 12/12/19 22 022 Inactive Abilify 5 mg tablet RxNorm: 755204 Take 1 Tablet(s) Oral QD take 1 tab po QD #30 refill 5 dx: MDD 12/12/19 22 022 Inactive chlorthalidone 25 mg tablet RxNorm: 622815 Take 1 Tablet(s) Oral QAM every morning 12/10/19 22 023 Active Novolog Flexpen U-100 Insulin aspart 100 unit/mL (3 mL) subcutaneous RxNorm: 7727889 Inject 42 Unit(s) Subcutaneous TID in addition to sliding scale 12/10/19 22 022 Inactive d/c 36u pregabalin 50 mg capsule RxNorm: 505923 Take 1 Capsule(s) Oral QAM every morning 11/12/19 22 022 Inactive tetanus-diphtheria toxoids-Td 2 Lf unit-2 Lf unit/0.5 mL IM suspension RxNorm: 139 Take 0.5 Miscellaneous Intramuscular 11/12/19 22 022 Inactive need tdap - nursing to administer upon arrival pregabalin 50 mg capsule RxNorm: 292423 Take 1 Capsule(s) Oral QAM every morning 10/16/19 22 022 Inactive pregabalin 50 mg capsule RxNorm: 149376 Take 1 Capsule(s) Oral QAM every morning 10/16/19 22 022 Inactive pregabalin 50 mg capsule RxNorm: 999999 1 Capsule(s) Oral QAM every morning 10/15/19 022 Inactive Shingrix (PF) 50 mcg/0.5 mL intramuscular suspension, kit RxNorm: 2907643 Administer 1/2 Milliliter(s) Intramuscular one time Nursing please administer upon arrival and once administered 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, commercial attorney, 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 10/09/19 22 022 Inactive shingrix step 1 Shingrix (PF) 50 mcg/0.5 mL intramuscular suspension, kit RxNorm: 5132163 Administer 1/2 Milliliter(s) Intramuscular one time Nursing please administer upon arrival and once administered 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, commercial attorney, 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 10/09/19 22 022 Inactive shingrix step 1 Novolog Flexpen U-100 Insulin aspart 100 unit/mL (3 mL) subcutaneous RxNorm: 7068885 Inject 10 Unit(s) Subcutaneous QHS every night at bedtime with nighttime snack 10/08/19 22 022 Inactive cholecalciferol (vitamin D3) 1,250 mcg (50,000 unit) capsule RxNorm: 916613 Take 1 Capsule(s) Oral QW once a [...] 50 mcg/0.5 mL intramuscular suspension, kit RxNorm: 0502630 ADMINISTER 2-DOSE SERIES PER CDC GUIDELINES 10/08/19 22 Active Shingrix (PF) 50 mcg/0.5 mL intramuscular suspension, kit RxNorm: 1439324 ADMINISTER 2-DOSE SERIES PER CDC GUIDELINES 10/08/19 22 Inactive Novolog Flexpen U-100 Insulin aspart 100 unit/mL (3 mL) subcutaneous RxNorm: 9832134 Inject 36 Unit(s) Subcutaneous TID in addition to sliding scale 10/08/19 Inactive Novofine Autocover 30 gauge x 1/3 needle RxNorm: Use 1 Miscellaneous UD as directed Use 1 needle as directed to administer insulin 5 times a day Dx:E11.42. 10/03/19 22 Inactive ok to substitute with any covered alternative pen needle benzoyl peroxide 10 % topical cleanser RxNorm: 660246 Apply 1 Application Topical QD apply to face, wash rinse and dry once daily (may change to QOD if drying) 08/19/19 22 022 Inactive (%covered by insurance) #60ml refill 11 dx: acne benzoyl peroxide 10 % topical cleanser RxNorm: 201238 Apply 1 Application Topical QD apply to face, wash rinse and dry once daily (may change to QOD if drying) 08/19/19 22 022 Inactive (%covered by insurance) #60ml refill 11 dx: acne benzoyl peroxide 10 % topical cleanser RxNorm: 600174 Apply 1 Application Topical QD apply to face, wash rinse and dry once daily (may change to QOD if drying) 08/19/19 22 022 Inactive (%covered by insurance) #60ml refill 11 dx: acne Lyrica 50 mg capsule RxNorm: 579268 Take 1 Capsule(s) Oral QAM every morning Take 1 capsule by mouth once daily 08/19/19 22 022 Inactive benzoyl peroxide 10 % topical cleanser RxNorm: 110660 Apply 1 Application Topical QD apply to face, wash rinse and dry once daily (may change to QOD if drying) 08/19/19 22 Inactive (%covered by insurance) #60ml refill 11 dx: acne Lyrica 100 mg capsule RxNorm: 275581 Take 1 Capsule(s) Oral QHS every night at bedtime Take 1 capsule by mouth once daily at bedtime 08/19/19 22 022 Inactive Lyrica 100 mg capsule RxNorm: 969588 Take 1 Capsule(s) Oral QHS every night at bedtime Take 1 capsule by mouth once daily at bedtime 08/16/19 022 Inactive Lyrica 50 mg capsule RxNorm: 153939 Take 1 Capsule(s) Oral QAM every morning Take 1 capsule by mouth once daily 08/16/19 22 022 Inactive Levemir FlexTouch U-100 Insulin 100 unit/mL (3 mL) subcutaneous pen RxNorm: 459531 Inject 86 Unit(s) Subcutaneous BID 08/05/19 22 022 Inactive d/c 83units BID Lyrica 100 mg capsule RxNorm: 255297 Take 1 Capsule(s) Oral QHS every night at bedtime Take 1 capsule by mouth once daily at bedtime 07/14/19 22 022 Inactive Lyrica 50 mg capsule RxNorm: 885969 Take 1 Capsule(s) Oral QAM every morning Take 1 capsule by mouth once daily 07/14/19 22 022 Inactive Levemir FlexTouch U-100 Insulin 100 unit/mL (3 mL) subcutaneous pen RxNorm: 017539 Inject 83 Unit(s) Subcutaneous BID 07/08/19 22 [...] test strip hydralazine 50 mg tablet RxNorm: 511103 Take 1 Tablet(s) Oral QID 05/05/20 21 Inactive isosorbide mononitrate ER 30 mg tablet,extended release 24 hr RxNorm: 944744 Take 1 Tablet(s) Oral QD 05/05/20 No Stop Date Active venlafaxine ER 225 mg tablet,extended release 24 hr RxNorm: 418117 Take 1 Tablet(s) Oral QD 05/05/20 21 021 Inactive venlafaxine ER 225 mg tablet,extended release 24 hr RxNorm: 049831 Take 1 Tablet(s) Oral QD 05/05/20 21 022 Inactive hydralazine 50 mg tablet RxNorm: 058804 Take 1 Tablet(s) Oral QID 12/20 021 Inactive aspirin 81 mg tablet,delayed release RxNorm: 528153 Take 1 Tablet(s) Oral QD 03/31/20 Inactive Zetia 10 mg tablet RxNorm: 822399 Take 1 Tablet(s) Oral QD 03/31/20 Inactive Vitamin D2 1,250 mcg (50,000 unit) capsule RxNorm: 9014110 Take 1 Capsule(s) Oral QW once a week x 12 weeks 03/31/20 Inactive Vitamin D2 1,250 mcg (50,000 unit) capsule RxNorm: 1385600 Take 1 Capsule(s) Oral QW once a week 03/31/20 Inactive Zetia 10 mg tablet RxNorm: 143296 Take 1 Tablet(s) Oral QD 03/31/20 Inactive hydralazine 25 mg tablet RxNorm: 182219 Take 1 Tablet(s) Oral QID 03/31/20 021 Inactive hydralazine 25 mg tablet RxNorm: 823542 Take 1 Tablet(s) Oral QID 03/31/20 021 Inactive hydralazine 10 mg tablet RxNorm: 251117 Take 1 Tablet(s) Oral QID 03/03/20 021 Inactive cephalexin 500 mg tablet RxNorm: 211206 Take 1 Tablet(s) Oral QID 02/27/20 021 Inactive cephalexin 500 mg tablet RxNorm: 870719 Take 1 Tablet(s) Oral QID 02/27/20 021 Inactive lisinopril 40 mg tablet RxNorm: 477980 Take 1 Tablet(s) Oral QD 02/11/20 21 023 Inactive Eliquis 5 mg tablet RxNorm: 3412606 Take 1 Tablet(s) Oral BID 01/05/20 21 022 Inactive Eliquis 5 mg tablet RxNorm: 8351264 Take 2 Tablet(s) Oral QD 01/01/20 21 021 Inactive Lyrica 50 mg capsule RxNorm: 012454 Take 1 Capsule(s) Oral QAM every morning 12/24/1910/2 021 Inactive Lyrica 100 mg capsule RxNorm: 402251 Take 1 Capsule(s) Oral QHS every night at bedtime 12/24/19 21 021 Inactive clotrimazole 1 % topical cream RxNorm: 222900 Apply to right foot and toes Topical BID 12/04/19 21 023 Inactive metoprolol succinate ER 200 mg tablet,extended release 24 hr RxNorm: 683430 Take 1 Tablet(s) Oral QD 12/04/19 21 023 Inactive ciprofloxacin 500 mg tablet RxNorm: 225965 Take 1 Tablet(s) Oral QD 11/30/19 21 021 Inactive DX ofloxacin otic drops Accu-Chek Guide test strips RxNorm: USE 1 TO CHECK GLUCOSE 4 TIMES DAILY AND NEEDED 11/15/19 023 Inactive Blood Glucose Test strips RxNorm: Use 1 Test Strip QID at PRN 11/05/19 21 023 Inactive E11.42 lisinopril 30 mg tablet RxNorm: 322456 Take 1 Tablet(s) Oral QD 10/30/19 021 Inactive lisinopril 20 mg tablet RxNorm: 794417 Take 1 Tablet(s) Oral QD 10/23/19 21 021 Inactive lisinopril 20 mg tablet RxNorm: 733548 Take 1 Tablet(s) Oral QD 10/23/19 21 021 Inactive lisinopril 10 mg tablet RxNorm: 835682 Take 1 Tablet(s) Oral QD 10/02/19 21 021 Inactive icosapent ethyl 1 gram capsule RxNorm: 0716388 Take 2 Capsule(s) (2 gm) Oral BID with meals 09/12/19 022 Inactive Okay to dispense one 2gm tab if you have that available. icosapent ethyl 1 gram capsule RxNorm: 7720871 Take 2 Capsule(s) Oral BID 09/12/19 21 021 Inactive Okay to dispense one 2gm tab if you have that available. amlodipine 10 mg tablet RxNorm: 703381 Take 1 Tablet(s) Oral QD 09/04/19 022 Inactive aspirin 81 mg tablet,delayed release RxNorm: 869741 Take 1 Tablet(s) Oral QD 09/04/19 Inactive Levemir FlexTouch U-100 Insulin 100 unit/mL (3 mL) subcutaneous pen RxNorm: 897592 Inject 150 Unit(s) Subcutaneous BID 09/04/19 022 Inactive venlafaxine ER 150 mg tablet,extended release 24 hr RxNorm: 515108 Take 1 Tablet(s) Oral QD 09/04/19 Inactive clotrimazole-betame thasone 1 %-0.05 % topical cream RxNorm: 740661 Apply to rash on red area on left abdomen/chest Topical BID 08/10/19 Inactive amlodipine 5 mg tablet RxNorm: 227257 Take 1 Tablet(s) Oral QD 07/31/19 Inactive cephalexin 500 mg tablet RxNorm: 936785 Take 1 Tablet(s) Oral BID BID - Twice Daily 07/31/19 021 Inactive Start 08/01/20 pantoprazole 40 mg tablet,delayed release RxNorm: 755779 Take 1 Tablet(s) Oral QAM every morning 07/08/19 022 Inactive senna 8.6 mg tablet RxNorm: 239874 Take 1 Tablet(s) Oral QD 07/08/19 022 Inactive pravastatin 80 mg tablet RxNorm: 389838 Take 1 Tablet(s) Oral QHS every night at bedtime 07/08/19 022 Inactive carbamazepine 200 mg tablet RxNorm: 920685 Take 1 Tablet(s) Oral BID 07/08/19 022 Inactive torsemide 20 mg tablet RxNorm: 970083 Take 1 Tablet(s) Oral QD 07/08/19 21 023 Inactive clopidogrel 75 mg tablet RxNorm: 944634 Take 1 Tablet(s) Oral QD 07/08/19 21 021 Inactive Blood Glucose Test strips RxNorm: Use 1 Test Strip QID at PRN 07/08/19 021 Inactive E11.42 Novolog Flexpen U-100 Insulin aspart 100 unit/mL (3 mL) subcutaneous RxNorm: 4227538 Administer per sliding scale Milliliter(s) Subcutaneous TID 151-200: 10 u; 201-250: 20 u; 251-300: 30 u; 301-350: 40 u; 351-400: 50 u. 07/08/19 022 Inactive lisinopril 5 mg tablet RxNorm: 365477 Take 1 Tablet(s) Oral QD 07/08/19 Inactive Novolog Flexpen U-100 Insulin aspart 100 unit/mL (3 mL) subcutaneous RxNorm: 3287707 Inject 85 Unit(s) Subcutaneous TID 07/08/19 Inactive clotrimazole 1 % topical cream RxNorm: 525101 Apply to bilateral groin areas Topical BID 07/08/19 Inactive metoprolol succinate ER 200 mg tablet,extended release 24 hr RxNorm: 325357 Take 1 Tablet(s) Oral QD 07/08/19 Inactive Vitamin D3 25 mcg (1,000 unit) tablet RxNorm: 165426 Take 1 Tablet(s) Oral QD 07/08/19 Inactive isosorbide dinitrate 30 mg tablet RxNorm: 091704 Take 1 Tablet(s) Oral QD 07/08/19 021 Inactive Levemir FlexTouch U-100 Insulin 100 unit/mL (3 mL) subcutaneous pen RxNorm: 084215 Inject 140 Unit(s) Subcutaneous BID 07/08/19 Inactive venlafaxine 75 mg tablet RxNorm: 661536 Take 1 Tablet(s) Oral QD 07/08/19 Inactive acetaminophen 500 mg tablet RxNorm: 085747 Take 1 Tablet(s) Oral TID as needed for headache 06/18/19 Inactive acetaminophen 500 mg tablet RxNorm: 166598 Take 1 Tablet(s) Oral TID as needed for headache 06/18/19 21 Inactive Lyrica 100 mg capsule RxNorm: 983842 Take 1 Capsule(s) Oral QHS every night at bedtime 06/11/19 21 021 Inactive Lyrica 50 mg capsule RxNorm: 168208 Take 1 Capsule(s) Oral QAM every morning 06/10/19 21 021 Inactive hydrocortisone 2.5 % topical cream RxNorm: 886227 Apply to bilateral groin creases Topical BID 05/15/20 20 021 Inactive clotrimazole 1 % topical cream RxNorm: 379300 Apply to bilateral groin areas Topical BID 05/15/20 20 021 Inactive Lyrica 50 mg capsule RxNorm: 562433 Take 1 Capsule(s) Oral QAM every morning 05/14/20 20 020 Inactive Lyrica 100 mg capsule RxNorm: 717975 Take 1 Capsule(s) Oral QHS every night [...] Inactive Nystop 100,000 unit/gram topical powder RxNorm: 775615 Apply to abd folds, under breasts and L side of groin Topical BID x 14 days, then BID PRN 04/08/20 20 021 Inactive dx: yeast dermatitis Lyrica 100 mg capsule RxNorm: 863205 Take 1 Capsule(s) Oral QHS every night at bedtime 03/13/20 20 020 Inactive Lyrica 50 mg capsule RxNorm: 513211 Take 1 Capsule(s) Oral QAM every morning 03/13/20 20 Inactive ketoconazole 2 % shampoo RxNorm: 156259 Apply Topical two times a week with showers 03/11/20 Inactive cholecalciferol (vitamin D3) 50 mcg (2,000 unit) tablet RxNorm: 557454 Take 1 Tablet(s) Oral QD 03/11/20 Inactive Zetia 10 mg tablet RxNorm: 690788 Take 1 Tablet(s) Oral QD 03/07/20 Inactive Zetia 10 mg tablet RxNorm: 725476 Take 1 Tablet(s) Oral QD 03/07/20 Inactive Lyrica 50 mg capsule RxNorm: 190061 Take 1 Capsule(s) Oral QAM every morning 02/15/20 20 Inactive Lyrica 100 mg capsule RxNorm: 740006 Take 1 Capsule(s) Oral QHS every night at bedtime 02/15/20 Inactive Lyrica 100 mg capsule RxNorm: 814166 Take 1 Capsule(s) Oral QHS every night at bedtime 02/15/20 Inactive Lyrica 50 mg capsule RxNorm: 014765 Take 1 Capsule(s) Oral QAM every morning 02/15/20 20 Inactive venlafaxine ER 75 mg capsule,extended release 24 hr RxNorm: 215802 Take 3 Capsule(s) Oral QD 06/12/2021 Activepolyethylene glycol 3350 17 gram/dose oral powderRxNorm: 345782Usaw 17=1 capful Gram(s) Oral BID as needed mix with 4-8oz of avygpx9106/12/2021ctive Levemir FlexTouch U-100 Insulin 100 unit/mL (3 mL) subcutaneous penRxNorm: 180451Psuyrn 80 Unit(s) Subcutaneous BID/Inactiveloperamide 2 mg capsuleRxNorm: 092109Wyst 1 Capsule(s) Oral QID as akuixj0906/12/2021ctive Novolog Flexpen U-100 Insulin aspart 100 unit/mL (3 mL) subcutaneousRxNorm: 6815803Acudmq 30 Unit(s) Subcutaneous TID with mealsInactive Medication [...] Date SYS BP LESS 140 CPT-4: G8752 03/10/2022 CUI BP LESS 90 CPT-4: G8754 03/10/2022 Vital Signs Date Vital 03/10/2022 Blood Pressure 1: 134/62 Code: 8480-6 BMI: NaN Code: 38555-8 Heart Rate 1: 82 bpm Code: 8867-4 Height: 5'5 Code: 8302-2 Respiratory Rate: 19 bpm Temperature: 36.1 (C) / 97.0 (F) Weight: 345 lbs Code: 3141-9 Reason For Visit No Reason For Visit data Encounters Encounter Performer Location Location Address Codes Cristiano e ([id number]) DOMICIL VISIT EST CARLO Benitez Diagnosis: Cellulitis[ICD10: L03.90] Diagnosis: Hyperlipidemia associated with type 2 diabetes mellitus[ICD10: E11.69] Diagnosis: Stage 2 chronic 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[ICD10: E11.22] Diagnosis: Type 2 diabetes mellitus with diabetic polyneuropathy, with long-term current use of insulin[ICD10: E11.42] Diagnosis: Recurrent major depressive disorder, in partial remission[ICD10: F33.41] Diagnosis: Major depression, recurrent[ICD10: F33.9] Diagnosis: Reducible umbilical hernia[ICD10: K42.9]Tapan ShirleyThe [place] [address] [place] [address]MNP-8: [id number] Plan of Care Planned Activity Notes Codes Status Date Referral: [facility] [address] [facility] [address] [id number] USReferralRecords Vqortzfo71/08/2023Patient Education: Patient Medication SgmmbsdOptnbyceo89/25/2022atient Education: Influenza VaccineCompleted 03/10/2022ppointment: Tapan Shirley WPtel: [address] [facility] [address] [id number]/U02Referral: [facility] WPtel: [address] [facility] [address] [id number] GZDsxrlaucUyvfzlmvs38/12/2022Referral: General CardiologyReferralCompleted 1Referral: General PsychologistReferralClosed Instructions Comment Date Leonid is a Male being seen living at [facility]. Initial BPS visit 01/2020. PMHx including DMII, CAD w/ 5 stents, Depression, Seizure Disorder and CKD stage 3. He moved into [facility] in 12/2019 but after a hospitalization 05/2021 he moved [facility] to have closer nursing attention. Sister Jyotsna involved in his care cell# [phone] Guardian: Don (tapan met in person 09/01/21), now has Lexii (same group as don)Lab Schedule: * 10/06/2022 Diabetes BGs improving, due for a1c today. Should also be following up with endo as he is on a large dose ofinsulin and I would like endos involvement. to schedule appt.?? Reducible umbilical hernia Has had for years - monitor for pain, strangulation, and constipation Depression Moods have improved since he's lost weight and had his BGs better controlled. Continue to encourageactivity as tolerated.?? Cellulitis cellulitis 03/07/22 on abdomen and scrotum, seen in ED and given IV abx and oral abx. Skin has improved, continue plan in place.?? .03/10/2022
--- OUTSIDE RECORDS SUMMARY | 2022-11-09 23:29 | XMS_ITS | CCD ---
Author Name Tapan Shirley PA-C Address [address] [facility] [address] [place] [address] Phone Organization [facility] Phone Care Team Providers Care Wealth Management Manager Name Role Phone Tapan Shirley PA-C Primary Care Provider Unavailabl e Tapan Shirley PA-C Chronic Care Management Unavaila ble Summary Purpose DataExchange Insurance Providers Payer name Policy type / Coverage type Covered constitution party ID Effective Begin Date Effective End Date Medicare [place] Medicare Part B [id number] Unknown Unknown Medicaid [place] Medicare Part B [id number] Unknown Unknown Family history Sister Brittany Suggs Diagnosis Age At Onset No Family Disease Entered N/A Runs in the family Diagnosis Age At Onset No Known Diseases N/A Sister Blanka Mcduffie Diagnosis Age At Onset No Family Disease Entered N/A Social History Social History Element Codes Description Effec tive Dates Marital status Unknown Single 10/07/2021 Living arrangements Unknown Detention 09/03/[address]: 0097865 Non-Smoker / No History of Smoking 09/02/[address]: 331810564 No Alcohol Consum ption 09/02/2020 Allergies, Adverse Reactions, Alerts Substance Reaction Codes Entered Date Inactivated Date Status LISINOPRIL RxNorm: 4283626No Inactive DateActiveMetformin CCeJgoahdv12/28/2020No Inactive DateActive Problems Condition Codes Effective Dates Condition St atus Coronary artery disease invo lving craig coronary artery of craig heart, angina presence unspecified ICD-10: I25.10 ICD-9: 414.011/2ActiveHyperlipidemia associated with type 2 diabetes mellitusICD-10: E11.69 ICD-9: 250.8011ctiveHypertensive heart disease without heart failure ICD-10: I11.9 ICD-9: 402.9011ctiveShortness of breathICD-10: R06.02 ICD-9: 786.0511/ctiveStage 2 chronic 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ICD-10: E11.22 ICD-9: 250.4011/ctiveType 2 diabetes mellitus with diabetic polyneuropathy, with long-term current use of insulinICD-10: E11.42 ICD-9: 250.6011ctiveVitamin D deficiencyICD-10: E55.9 ICD-9: 268.911/ctiveMajor depression, recurrentICD-10: F33.9 ICD-9: 296.3011/ctiveSeizure disorderICD-10: G40.909 ICD-9: 345.9011ctiveCellulitisICD-10: L03.90 ICD-9: 682.910/ctiveRecurrent major depressive disorder, in partial remissionICD-10: F33.41 ICD-9: 296.3510ctiveReducible umbilical herniaICD-10: K42.9 ICD-9: 553.110/ctiveBMI 60.0-69.9, adultICD-10: Z68.44 ICD-9: V85.4410/ctiveInappropriate sexual behaviorICD-10: Z72.89 ICD-9: 312.8910/ctiveHx of deep venous thrombosisICD-10: Z86.718 ICD-9: V12.5109/ctiveHypercoagulable stateICD-10: D68.59 ICD-9: 289.8109/ctiveOnychogryposisICD-10: L60.2 ICD-9: 703.809/ctiveParaparesis of both lower limbsICD-10: G82.20 ICD-9: 344.109/ctivePVD (peripheral vascular disease)ICD-10: I73.9 ICD-9: 443.909/ctiveDepressionICD-10: F32.9 ICD-9: 40209/2ResolvedDVT (deep venous thrombosis)ICD-10: I82.409 ICD-9: 453.4009/2ResolvedEncounter for immunizationICD-10: Z23 ICD-9: V03.8909/2ResolvedLong term (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 insulinICD-10: Z79.4 02/10/2022esolvedMuscular painICD-10: M79.10 ICD-9: 729.109/esolvedPain of right heelICD-10: M79.671 ICD-9: 729.509/esolvedDandruff in adultICD-10: L21.0 ICD-9: 690.18001/06/2022ctiveHypertension associated with diabetesICD-10: E11.59 ICD-9: 250.8008esolvedHistory of anemia due to CKDICD-10: N18.9 ICD-9: 585.907/2ActiveSecondary hypertensionICD-10: I15.9 ICD-9: 405.9907/2ActiveStage 2 chronic kidney diseaseICD-10: N18.2 ICD-9: 585.207/2ActiveCandidiasis, intertrigoICD-10: B37.2 ICD-9: 112.306/ctiveGout due to renal impairmentICD-10: M10.30 ICD-9: 274.1006/2ActivePreventative health careICD-10: Z00.00 ICD-9: V70.006/2ActiveLower extremity edemaICD-10: R60.0 ICD-9: 782.305/2ActiveAmputated toe of right footICD-10: S98.131A ICD-9: 895.004/2ActiveLearning disabilityICD-10: F81.9 ICD-9: 315.212/1ActiveSkin tagICD-10: L91.8 ICD-9: 701.911/ctiveCallus of heelICD-10: L84 ICD-9: 48581/1ActiveImpacted cerumen, left earICD-10: H61.22 ICD-9: 380.408/ctiveContact with [...] Z20.828 ICD-9: V01.7902esolvedHyperhidrosis of palmsICD-10: L74.512 ICD-9: 705.6312ZjbjdhAsvpzymmNazwfpk55/28/2020ActiveDiabetes mellitus Type 1Nvmoakf10/28/2020ActiveAnemia in chronic kidney diseaseICD-10: D63.1 02/12/2020ResolvedHyperlipidemia, unspecifiedICD-10: E78.509Resolved Medications Medication Codes Instructions Start Date Stop Date Status Fill Instructions albuterol sulfate HFA 90 mcg/actuation aerosol inhaler RxNorm: 5173018 Take 2 Puff(s) Inhalation Q4H every four hours as needed as needed for SOB, cough, or wheezing 04/07/20 22 030 Active diphenhydramine 50 mg tablet RxNorm: 4482419 Take 1 Tablet(s) Oral Q6H every 6 hours as needed 04/06/20 022 Inactive diphenhydramine 50 mg tablet RxNorm: 4717224 1 Tablet(s) Oral Q6H every 6 hours as needed 04/06/20 22 022 Inactive Abilify 15 mg tablet RxNorm: 358413 1/2 Tablet(s) Oral QD 03/10/20 22 023 Inactive Shingrix (PF) 50 mcg/0.5 mL intramuscular suspension, kit RxNorm: 7239397 Administer 1/2 Milliliter(s) Intramuscular QD one time shingrix step 2 ( step 1 given 11/04/21) WITH needle - Nursing please administer upon arrival and once administered 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, radiology physician assistant, 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, and lot# so we can update MIIC 02/18/20 22 022 Inactive dispense with needle Shingrix (PF) 50 mcg/0.5 mL intramuscular suspension, kit RxNorm: 7508417 Administer 1/2 Milliliter(s) Intramuscular QD one time shingrix step 2 ( step 1 given 11/04/21) WITH needle - Nursing please administer upon arrival and once administered 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, radiology physician assistant, 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, and lot# so we can update MIIC 02/18/20 22 022 Inactive dispense with needle acetaminophen 500 mg tablet RxNorm: 915052 Take 1 Tablet(s) Oral TID 01/08/20 22 023 Active d/c PRN order Lyrica 150 mg capsule RxNorm: 151365 Take 1 Capsule(s) Oral QHS every night at bedtime 01/08/20 22 023 Inactive d/c 100mg dose polyethylene glycol 3350 17 gram/dose oral powder RxNorm: 133552 Take 17=1 capful Gram(s) Oral QD mix with 4-8oz of liquid 01/08/20 22 023 Active take this in addition to BID prn order Lyrica 100 mg capsule RxNorm: 664882 Take 1 Capsule(s) Oral QAM every morning 01/08/20 22 022 Inactive d/c 50mg dose Abilify 5 mg tablet RxNorm: 191018 Take 1 Tablet(s) Oral QD take 1 tab po QD #30 refill 5 dx: MDD 12/12/19 22 022 Inactive Abilify 5 mg tablet RxNorm: 952049 Take 1 Tablet(s) Oral QD take 1 tab po QD #30 refill 5 dx: MDD 12/12/19 22 022 Inactive chlorthalidone 25 mg tablet RxNorm: 876045 Take 1 Tablet(s) Oral QAM every morning 12/10/19 22 023 Active Novolog Flexpen U-100 Insulin aspart 100 unit/mL (3 mL) subcutaneous RxNorm: 9734366 Inject 42 Unit(s) Subcutaneous TID in addition to sliding scale 12/10/19 22 022 Inactive d/c 36u pregabalin 50 mg capsule RxNorm: 174583 Take 1 Capsule(s) Oral QAM every morning 11/12/19 22 022 Inactive tetanus-diphtheria toxoids-Td 2 Lf unit-2 Lf unit/0.5 mL IM suspension RxNorm: 139 Take 0.5 Miscellaneous Intramuscular 11/12/19 22 022 Inactive need tdap - nursing to administer upon arrival pregabalin 50 mg capsule RxNorm: 874478 Take 1 Capsule(s) Oral QAM every morning 10/16/19 22 022 Inactive pregabalin 50 mg capsule RxNorm: 412409 Take 1 Capsule(s) Oral QAM every morning 10/16/19 22 022 Inactive pregabalin 50 mg capsule RxNorm: 038906 1 Capsule(s) Oral QAM every morning 10/15/19 22 022 Inactive Shingrix (PF) 50 mcg/0.5 mL intramuscular suspension, kit RxNorm: 4837885 Administer 1/2 Milliliter(s) Intramuscular one time Nursing please administer upon arrival and once administered 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, radiology physician assistant, 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 10/09/19 22 022 Inactive shingrix step 1 Shingrix (PF) 50 mcg/0.5 mL intramuscular suspension, kit RxNorm: 8068460 Administer 1/2 Milliliter(s) Intramuscular one time Nursing please administer upon arrival and once administered 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, radiology physician assistant, 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 10/09/19 22 Inactive shingrix step 1 Novolog Flexpen U-100 Insulin aspart 100 unit/mL (3 mL) subcutaneous RxNorm: 5626771 Inject 10 Unit(s) Subcutaneous QHS every night at bedtime with nighttime snack 10/08/19 22 Inactive cholecalciferol (vitamin D3) 1,250 mcg (50,000 unit) capsule RxNorm: 278356 Take 1 Capsule(s) Oral QW once a [...] 50 mcg/0.5 mL intramuscular suspension, kit RxNorm: 1618415 ADMINISTER 2-DOSE SERIES PER CDC GUIDELINES 10/08/19 22 Active Shingrix (PF) 50 mcg/0.5 mL intramuscular suspension, kit RxNorm: 0548996 ADMINISTER 2-DOSE SERIES PER CDC GUIDELINES 10/08/19 22 Inactive Novolog Flexpen U-100 Insulin aspart 100 unit/mL (3 mL) subcutaneous RxNorm: 5505862 Inject 36 Unit(s) Subcutaneous TID in addition to sliding scale 10/08/19 22 Inactive Novofine Autocover 30 gauge x 1/3 needle RxNorm: Use 1 Miscellaneous UD as directed Use 1 needle as directed to administer insulin 5 times a day Dx:E11.42. 10/03/19 22 Inactive ok to substitute with any covered alternative pen needle benzoyl peroxide 10 % topical cleanser RxNorm: 247808 Apply 1 Application Topical QD apply to face, wash rinse and dry once daily (may change to QOD if drying) 08/19/19 22 022 Inactive (%covered by insurance) #60ml refill 11 dx: acne benzoyl peroxide 10 % topical cleanser RxNorm: 463648 Apply 1 Application Topical QD apply to face, wash rinse and dry once daily (may change to QOD if drying) 08/19/19 22 022 Inactive (%covered by insurance) #60ml refill 11 dx: acne benzoyl peroxide 10 % topical cleanser RxNorm: 712393 Apply 1 Application Topical QD apply to face, wash rinse and dry once daily (may change to QOD if drying) 08/19/19 22 022 Inactive (%covered by insurance) #60ml refill 11 dx: acne Lyrica 50 mg capsule RxNorm: 966932 Take 1 Capsule(s) Oral QAM every morning Take 1 capsule by mouth once daily 08/19/19 022 Inactive benzoyl peroxide 10 % topical cleanser RxNorm: 658085 Apply 1 Application Topical QD apply to face, wash rinse and dry once daily (may change to QOD if drying) 08/19/19 022 Inactive (%covered by insurance) #60ml refill 11 dx: acne Lyrica 100 mg capsule RxNorm: 201833 Take 1 Capsule(s) Oral QHS every night at bedtime Take 1 capsule by mouth once daily at bedtime 08/19/19 022 Inactive Lyrica 100 mg capsule RxNorm: 842796 Take 1 Capsule(s) Oral QHS every night at bedtime Take 1 capsule by mouth once daily at bedtime 08/16/19 022 Inactive Lyrica 50 mg capsule RxNorm: 460807 Take 1 Capsule(s) Oral QAM every morning Take 1 capsule by mouth once daily 08/16/19 Inactive Levemir FlexTouch U-100 Insulin 100 unit/mL (3 mL) subcutaneous pen RxNorm: 959911 Inject 86 Unit(s) Subcutaneous BID 08/05/19 22 022 Inactive d/c 83units BID Lyrica 100 mg capsule RxNorm: 037727 Take 1 Capsule(s) Oral QHS every night at bedtime Take 1 capsule by mouth once daily at bedtime 07/14/19 22 Inactive Lyrica 50 mg capsule RxNorm: 308860 Take 1 Capsule(s) Oral QAM every morning Take 1 capsule by mouth once daily 07/14/19 22 Inactive Levemir FlexTouch U-100 Insulin 100 unit/mL (3 mL) subcutaneous pen RxNorm: 693112 Inject 83 Unit(s) Subcutaneous BID 07/08/19 22 [...] test strip hydralazine 50 mg tablet RxNorm: 620303 Take 1 Tablet(s) Oral QID 05/05/20 Inactive isosorbide mononitrate ER 30 mg tablet,extended release 24 hr RxNorm: 317252 Take 1 Tablet(s) Oral QD 05/05/20 No Stop Date Active venlafaxine ER 225 mg tablet,extended release 24 hr RxNorm: 967944 Take 1 Tablet(s) Oral QD 05/05/20 Inactive venlafaxine ER 225 mg tablet,extended release 24 hr RxNorm: 735873 Take 1 Tablet(s) Oral QD 05/05/20 022 Inactive hydralazine 50 mg tablet RxNorm: 507118 Take 1 Tablet(s) Oral QID 05/05/20 Inactive aspirin 81 mg tablet,delayed release RxNorm: 636123 Take 1 Tablet(s) Oral QD 03/31/20 Inactive Zetia 10 mg tablet RxNorm: 619132 Take 1 Tablet(s) Oral QD 03/31/20 Inactive Vitamin D2 1,250 mcg (50,000 unit) capsule RxNorm: 0971885 Take 1 Capsule(s) Oral QW once a week x 12 weeks 03/31/20 Inactive Vitamin D2 1,250 mcg (50,000 unit) capsule RxNorm: 1669507 Take 1 Capsule(s) Oral QW once a week 03/31/20 Inactive Zetia 10 mg tablet RxNorm: 671187 Take 1 Tablet(s) Oral QD 03/31/20 Inactive hydralazine 25 mg tablet RxNorm: 310698 Take 1 Tablet(s) Oral QID 03/31/20 Inactive hydralazine 25 mg tablet RxNorm: 695861 Take 1 Tablet(s) Oral QID 03/31/20 Inactive hydralazine 10 mg tablet RxNorm: 475436 Take 1 Tablet(s) Oral QID 03/03/20 Inactive cephalexin 500 mg tablet RxNorm: 594692 Take 1 Tablet(s) Oral QID 02/27/20 021 Inactive cephalexin 500 mg tablet RxNorm: 938931 Take 1 Tablet(s) Oral QID 02/27/20 021 Inactive lisinopril 40 mg tablet RxNorm: 035858 Take 1 Tablet(s) Oral QD 02/11/20 023 Inactive Eliquis 5 mg tablet RxNorm: 8144201 Take 1 Tablet(s) Oral BID 01/05/20 21 022 Inactive Eliquis 5 mg tablet RxNorm: 3757368 Take 2 Tablet(s) Oral QD 01/01/20 21 021 Inactive Lyrica 50 mg capsule RxNorm: 310743 Take 1 Capsule(s) Oral QAM every morning 12/24/19 021 Inactive Lyrica 100 mg capsule RxNorm: 935545 Take 1 Capsule(s) Oral QHS every night at bedtime 12/24/19 021 Inactive clotrimazole 1 % topical cream RxNorm: 009152 Apply to right foot and toes Topical BID 12/04/19 21 023 Inactive metoprolol succinate ER 200 mg tablet,extended release 24 hr RxNorm: 582330 Take 1 Tablet(s) Oral QD 12/04/19 023 Inactive ciprofloxacin 500 mg tablet RxNorm: 991942 Take 1 Tablet(s) Oral QD 11/30/19 021 Inactive DX ofloxacin otic drops Accu-Chek Guide test strips RxNorm: USE 1 TO CHECK GLUCOSE 4 TIMES DAILY AND NEEDED 11/15/19 21 023 Inactive Blood Glucose Test strips RxNorm: Use 1 Test Strip QID at PRN 11/05/19 21 023 Inactive E11.42 lisinopril 30 mg tablet RxNorm: 180207 Take 1 Tablet(s) Oral QD 10/30/19 021 Inactive lisinopril 20 mg tablet RxNorm: 380205 Take 1 Tablet(s) Oral QD 10/23/19 021 Inactive lisinopril 20 mg tablet RxNorm: 518044 Take 1 Tablet(s) Oral QD 10/23/19 21 021 Inactive lisinopril 10 mg tablet RxNorm: 235891 Take 1 Tablet(s) Oral QD 10/02/19 21 021 Inactive icosapent ethyl 1 gram capsule RxNorm: 6497803 Take 2 Capsule(s) (2 gm) Oral BID with meals 09/12/19 022 Inactive Okay to dispense one 2gm tab if you have that available. icosapent ethyl 1 gram capsule RxNorm: 9185658 Take 2 Capsule(s) Oral BID 09/12/19 021 Inactive Okay to dispense one 2gm tab if you have that available. amlodipine 10 mg tablet RxNorm: 202882 Take 1 Tablet(s) Oral QD 09/04/19 Inactive aspirin 81 mg tablet,delayed release RxNorm: 618758 Take 1 Tablet(s) Oral QD 09/04/19 Inactive Levemir FlexTouch U-100 Insulin 100 unit/mL (3 mL) subcutaneous pen RxNorm: 831138 Inject 150 Unit(s) Subcutaneous BID 09/04/19 21 022 Inactive venlafaxine ER 150 mg tablet,extended release 24 hr RxNorm: 947396 Take 1 Tablet(s) Oral QD 09/04/19 021 Inactive clotrimazole-betame thasone 1 %-0.05 % topical cream RxNorm: 119281 Apply to rash on red area on left abdomen/chest Topical BID 08/10/19 21 Inactive amlodipine 5 mg tablet RxNorm: 860441 Take 1 Tablet(s) Oral QD 07/31/19 21 021 Inactive cephalexin 500 mg tablet RxNorm: 042632 Take 1 Tablet(s) Oral BID BID - Twice Daily 07/31/19 21 021 Inactive Start 08/01/20 pantoprazole 40 mg tablet,delayed release RxNorm: 861062 Take 1 Tablet(s) Oral QAM every morning 07/08/19 21 022 Inactive senna 8.6 mg tablet RxNorm: 584954 Take 1 Tablet(s) Oral QD 07/08/19 022 Inactive pravastatin 80 mg tablet RxNorm: 979550 Take 1 Tablet(s) Oral QHS every night at bedtime 07/08/19 Inactive carbamazepine 200 mg tablet RxNorm: 435951 Take 1 Tablet(s) Oral BID 07/08/19 022 Inactive torsemide 20 mg tablet RxNorm: 483609 Take 1 Tablet(s) Oral QD 07/08/19 21 023 Inactive clopidogrel 75 mg tablet RxNorm: 114821 Take 1 Tablet(s) Oral QD 07/08/19 21 021 Inactive Blood Glucose Test strips RxNorm: Use 1 Test Strip QID at PRN 07/08/19 Inactive E11.42 Novolog Flexpen U-100 Insulin aspart 100 unit/mL (3 mL) subcutaneous RxNorm: 6678384 Administer per sliding scale Milliliter(s) Subcutaneous TID 151-200: 10 u; 201-250: 20 u; 251-300: 30 u; 301-350: 40 u; 351-400: 50 u. 07/08/19 022 Inactive lisinopril 5 mg tablet RxNorm: 717395 Take 1 Tablet(s) Oral QD 07/08/19 Inactive Novolog Flexpen U-100 Insulin aspart 100 unit/mL (3 mL) subcutaneous RxNorm: 1978652 Inject 85 Unit(s) Subcutaneous TID 07/08/19 022 Inactive clotrimazole 1 % topical cream RxNorm: 527987 Apply to bilateral groin areas Topical BID 07/08/19 022 Inactive metoprolol succinate ER 200 mg tablet,extended release 24 hr RxNorm: 561496 Take 1 Tablet(s) Oral QD 07/08/19 Inactive Vitamin D3 25 mcg (1,000 unit) tablet RxNorm: 379624 Take 1 Tablet(s) Oral QD 07/08/19 021 Inactive isosorbide dinitrate 30 mg tablet RxNorm: 055880 Take 1 Tablet(s) Oral QD 07/08/19 021 Inactive Levemir FlexTouch U-100 Insulin 100 unit/mL (3 mL) subcutaneous pen RxNorm: 562708 Inject 140 Unit(s) Subcutaneous BID 07/08/19 21 Inactive venlafaxine 75 mg tablet RxNorm: 115502 Take 1 Tablet(s) Oral QD 07/08/19 021 Inactive acetaminophen 500 mg tablet RxNorm: 883262 Take 1 Tablet(s) Oral TID as needed for headache 06/18/19 Inactive acetaminophen 500 mg tablet RxNorm: 879514 Take 1 Tablet(s) Oral TID as needed for headache 06/18/19 21 Inactive Lyrica 100 mg capsule RxNorm: 230319 Take 1 Capsule(s) Oral QHS every night at bedtime 06/11/19 21 Inactive Lyrica 50 mg capsule RxNorm: 596663 Take 1 Capsule(s) Oral QAM every morning 06/10/19 021 Inactive hydrocortisone 2.5 % topical cream RxNorm: 377483 Apply to bilateral groin creases Topical BID 05/15/20 20 021 Inactive clotrimazole 1 % topical cream RxNorm: 869153 Apply to bilateral groin areas Topical BID 05/15/20 20 021 Inactive Lyrica 50 mg capsule RxNorm: 805506 Take 1 Capsule(s) Oral QAM every morning 05/14/20 20 020 Inactive Lyrica 100 mg capsule RxNorm: 373914 Take 1 Capsule(s) Oral QHS every night [...] Inactive Nystop 100,000 unit/gram topical powder RxNorm: 728215 Apply to abd folds, under breasts and L side of groin Topical BID x 14 days, then BID PRN 04/08/20 20 Inactive dx: yeast dermatitis Lyrica 100 mg capsule RxNorm: 516677 Take 1 Capsule(s) Oral QHS every night at bedtime 03/13/20 20 Inactive Lyrica 50 mg capsule RxNorm: 805446 Take 1 Capsule(s) Oral QAM every morning 03/13/20 20 Inactive ketoconazole 2 % shampoo RxNorm: 044632 Apply Topical two times a week with showers 03/11/20 20 Inactive cholecalciferol (vitamin D3) 50 mcg (2,000 unit) tablet RxNorm: 731040 Take 1 Tablet(s) Oral QD 03/11/20 20 Inactive Zetia 10 mg tablet RxNorm: 043783 Take 1 Tablet(s) Oral QD 03/07/20 20 021 Inactive Zetia 10 mg tablet RxNorm: 875455 Take 1 Tablet(s) Oral QD 03/07/20 20 Inactive Lyrica 50 mg capsule RxNorm: 791236 Take 1 Capsule(s) Oral QAM every morning 02/15/20 20 Inactive Lyrica 100 mg capsule RxNorm: 930327 Take 1 Capsule(s) Oral QHS every night at bedtime 02/15/20 20 Inactive Lyrica 100 mg capsule RxNorm: 599392 Take 1 Capsule(s) Oral QHS every night at bedtime 02/15/20 20 Inactive Lyrica 50 mg capsule RxNorm: 192796 Take 1 Capsule(s) Oral QAM every morning 02/15/20 20 10/01/2 020 Inactive venlafaxine ER 75 mg capsule,extended release 24 hr RxNorm: 738913 Take 3 Capsule(s) Oral QD 06/12/2021 Activepolyethylene glycol 3350 17 gram/dose oral powderRxNorm: 595411Ihuv 17=1 capful Gram(s) Oral BID as needed mix with 4-8oz of wsiqqa5406/12/2021ctive Levemir FlexTouch U-100 Insulin 100 unit/mL (3 mL) subcutaneous penRxNorm: 798388Iamkol 80 Unit(s) Subcutaneous BID07/14//Inactiveloperamide 2 mg capsuleRxNorm: 559712Bsib 1 Capsule(s) Oral QID as yrilfw6406/12/2021ctive Novolog Flexpen U-100 Insulin aspart 100 unit/mL (3 mL) subcutaneousRxNorm: 8315077Vixmvd 30 Unit(s) Subcutaneous TID with meals/Inactive Medication [...] Date SYS BP LESS 140 CPT-4: G8752 04/07/2022 CUI BP LESS 90 CPT-4: G8754 04/07/2022 Vital Signs Date Vital 04/07/2022 Blood Pressure 1: 135/78 Code: 8480-6 Heart Rate 1: 78 bpm Code: 8867-4 Height: 5'5 Code: 8302-2 Respiratory Rate: 18 bpm SpO2: 97% Temperature: 36.4 (C) / 97.5 (F) Reason For Visit No Reason For Visit data Encounters Encounter Performer Location Location Address Codes Cristiano e ([id number]) DOMICIL VISIT EST CARLO Benitez w/95 modifier Diagnosis: Hypertensive heart disease without heart failure[ICD10: I11.9] Diagnosis: Hyperlipidemia associated with type 2 diabetes mellitus[ICD10: E11.69] Diagnosis: Stage 2 chronic 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[ICD10: E11.22] Diagnosis: Type 2 diabetes mellitus with diabetic polyneuropathy, with long-term current use of insulin[ICD10: E11.42] Diagnosis: Vitamin D deficiency[ICD10: E55.9] Diagnosis: Coronary artery disease involving craig coronary artery of craig heart, angina presence unspecified[ICD10: I25.10] Diagnosis: Shortness of breath[ICD10: R06.02][facility] [place] [address]IHS-2: 571189606/07/2021 Plan of Care Planned Activity Notes Codes Status Date Referral: [facility] W[facility]el[facility] [address] [id number] USReferralRecords Wvbvajcc86/08/2023Patient Education: Patient Medication CfryxmhUtnvlhjql22/22/2022atient Education: Influenza VaccineCompleted 04/07/2022ppointment: Tapan Shirley WPtel: [address] [facility] [address] [id number] [place]/U02Referral: [facility] CARLO WPtel: [address] [id number] FVZhoftuxlUvvefhexz01/12/2022Referral: General CardiologyReferralCompleted 1Referral: General PsychologistReferralClosed Instructions Comment [...] Sister Jyotsna involved in his care cell# [phone] Guardian: Don (tapan met in person 09/01/21), now has Lexii (same group as don)Lab Schedule: * 10/06/2022 Diabetes A1C high (9.4%), advising facility to fax BG log and a1c to rn ostomy for review and to make the necessary changes.?? Shortness of breath SOB seems to wax and wane, likely due to undiagnosed COPD and uncontrolled TASHI (patient has been refusing to wear CPAP). Will start inhaler prn and advised patient to use CPAP as much as possible. Has f/u with nursing clinical director in May, less concerned about cardiac cause of SOB as no reported orthopnea.?? Hypertension Patient continues to push off seeing his nursing clinical director, has appt made for may. BPs variable but he's asymptomatic at this time so will make no changes.?? Vitamin D Deficiency 03/16/22 D level 33, continue supplement.?? Ischemic Heart Disease Should be seen by nursing clinical director sooner than May but patient refuses. C/O SOB with exertion, will start inhaler but cards should also be made aware.?? .04/07/2022
--- OUTSIDE RECORDS SUMMARY | 2022-11-09 23:29 | XMS_ITS | CCD ---
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 Supervisor Name Role Phone Tapan Shirley PA-C Primary Care Provider Unavailabl e Tapan Shirley PA-C Chronic Care Management Unavaila ble Summary Purpose DataExchange Insurance Providers Payer name Policy type / Coverage type Covered libertarian ID Effective Begin Date Effective End Date [place] Part B [id number] Unknown Unknown Medicaid [place] Medicare Part B [id number] Unknown Unknown Family history Sister Brittany Suggs Diagnosis Age At Onset No Family Disease Entered N/A Runs in the family Diagnosis Age At Onset No Known Diseases N/A Sister Blanka Mcduffie Diagnosis Age At Onset No Family Disease Entered N/A Social History Social History Element Codes Description Effec tive Dates Marital status Unknown Single 10/07/2021 Living arrangements Unknown 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 09/03/[address]: 5720772 Non-Smoker / No History of Smoking 09/02/[address]: 541458908 No Alcohol Consum ption 09/02/2020 Allergies, Adverse Reactions, Alerts Substance Reaction Codes Entered Date Inactivated Date Status LISINOPRIL RxNorm: 9839153No Inactive DateActiveMetformin HMrUmvbgyo10/28/2020No Inactive DateActive Problems Condition Codes Effective Dates Condition St atus Major depression, recurrent ICD-10: F33. 9 ICD-9: 296.3011/ctiveSeizure disorderICD-10: G40.909 ICD-9: 345.9011/ctiveStage 2 chronic 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ICD-10: E11.22 ICD-9: 250.4011/ctiveType 2 diabetes mellitus with diabetic polyneuropathy, with long-term current use of insulinICD-10: E11.42 ICD-9: 250.6011/ctiveCellulitisICD-10: L03.90 ICD-9: 682.910/25/2022ActiveHyperlipidemia associated with type 2 diabetes mellitusICD-10: E11.69 ICD-9: 250.8010/ctiveRecurrent major depressive disorder, in partial remissionICD-10: F33.41 ICD-9: 296.3510/ctiveReducible umbilical herniaICD-10: K42.9 ICD-9: 553.110/ctiveBMI 60.0-69.9, adultICD-10: Z68.44 ICD-9: V85.4410/ctiveInappropriate sexual behaviorICD-10: Z72.89 ICD-9: 312.8910/ctiveHx of deep venous thrombosisICD-10: Z86.718 ICD-9: V12.5109/ctiveHypercoagulable stateICD-10: D68.59 ICD-9: 289.8109/ctiveHypertensive heart disease without heart failure ICD-10: I11.9 ICD-9: 402.9009/2ActiveOnychogryposisICD-10: L60.2 ICD-9: 703.809/ctiveParaparesis of both lower limbsICD-10: G82.20 ICD-9: 344.109ctivePVD (peripheral vascular disease)ICD-10: I73.9 ICD-9: 443.9092ActiveDepressionICD-10: F32.9 ICD-9: 44620/esolvedDVT (deep venous thrombosis)ICD-10: I82.409 ICD-9: 453.4009/esolvedEncounter for immunizationICD-10: Z23 ICD-9: V03.8909/2ResolvedLong term (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 insulinICD-10: Z79.4 2ResolvedMuscular painICD-10: M79.10 ICD-9: 729.109/2ResolvedPain of right heelICD-10: M79.671 ICD-9: 729.509/esolvedCoronary artery disease involving nondalton coronary artery of nondalton heart, angina presence unspecifiedICD-10: I25.10 ICD-9: 414.0108/ctiveDandruff in adultICD-10: L21.0 ICD-9: 690.1808/ctiveHypertension associated with diabetesICD-10: E11.59 ICD-9: 250.8008/esolvedHistory of anemia due to CKDICD-10: N18.9 ICD-9: 585.907/ctiveSecondary hypertensionICD-10: I15.9 ICD-9: 405.9907/2ActiveStage 2 chronic kidney diseaseICD-10: N18.2 ICD-9: 585.207/ctiveCandidiasis, intertrigoICD-10: B37.2 ICD-9: 112.306/ctiveGout due to renal impairmentICD-10: M10.30 ICD-9: 274.1006/ctivePreventative health careICD-10: Z00.00 ICD-9: V70.006/ctiveLower extremity edemaICD-10: R60.0 ICD-9: 782.305/2ActiveAmputated toe of right footICD-10: S98.131A ICD-9: 895.004/ctiveLearning disabilityICD-10: F81.9 ICD-9: 315.212/1ActiveSkin tagICD-10: L91.8 ICD-9: 701.911/1ActiveVitamin D deficiencyICD-10: E55.9 ICD-9: 268.911/1ActiveCallus of heelICD-10: L84 ICD-9: 84093/ctiveImpacted cerumen, left earICD-10: H61.22 ICD-9: 380.408/ctiveContact with and (suspected) exposure to covid-19 ICD-10: Z20.822 ICD-9: V01.7908/17/2021ResolvedOther infective acute otitis externa of left ear ICD-10: H60.392 ICD-9: 380.10081ResolvedScrotal skin lesionICD-10: N50.9 ICD-9: 608.908esolvedTinea pedisICD-10: B35.3 ICD-9: 110.408/1ResolvedAnemia due to stage 3b chronic kidney diseaseICD- 10: N18.32 ICD-9: 285.21051ResolvedChronic kidney disease, stage 3 unspecifiedICD- 10: N18.3004esolvedContact with and (suspected) exposure to other viral communicable diseasesICD-10: Z20.828 ICD-9: V01.7907/08/2020esolvedHyperhidrosis of palmsICD-10: L74.512 ICD-9: 705.6407LsbcnjJeqtzktdEawfcrp29/28/2020ActiveDiabetes mellitus Type 8Fkfrkaa57/28/2020ActiveAnemia in chronic kidney diseaseICD-10: D63.1 02/12/2020ResolvedHyperlipidemia, unspecifiedICD-10: E78.Resolved Medications Medication Codes Instructions Start Date Stop Date Status Fill Instructions diphenhydramine 50 mg tablet RxNorm: 0688141 Take 1 Tablet(s) Oral Q6H every 6 hours as needed 04/06/20 22 022 Inactive diphenhydramine 50 mg tablet RxNorm: 8786802 1 Tablet(s) Oral Q6H every 6 hours as needed 04/06/20 22 022 Inactive Abilify 15 mg tablet RxNorm: 879616 1/2 Tablet(s) Oral QD 03/10/20 22 023 Inactive Shingrix (PF) 50 mcg/0.5 mL intramuscular suspension, kit RxNorm: 7069543 Administer 1/2 Milliliter(s) Intramuscular QD one time shingrix step 2 ( step 1 given 11/04/21) WITH needle - Nursing please administer upon arrival and once administered 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, bi specialist, 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, and lot# so we can update [facility] 02/18/20 22 022 Inactive dispense with needle Shingrix (PF) 50 mcg/0.5 mL intramuscular suspension, kit RxNorm: 7701998 Administer 1/2 Milliliter(s) Intramuscular QD one time shingrix step 2 ( step 1 given 11/04/21) WITH needle - Nursing please administer upon arrival and once administered 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, bi specialist, 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, and lot# so we can update [facility] 02/18/20 22 Inactive dispense with needle acetaminophen 500 mg tablet RxNorm: 743863 Take 1 Tablet(s) Oral TID 01/08/20 023 Active d/c PRN order Lyrica 150 mg capsule RxNorm: 999919 Take 1 Capsule(s) Oral QHS every night at bedtime 01/08/20 22 023 Inactive d/c 100mg dose polyethylene glycol 3350 17 gram/dose oral powder RxNorm: 315450 Take 17=1 capful Gram(s) Oral QD mix with 4-8oz of liquid 01/08/20 22 023 Active take this in addition to BID prn order Lyrica 100 mg capsule RxNorm: 760178 Take 1 Capsule(s) Oral QAM every morning 01/08/20 22 022 Inactive d/c 50mg dose Abilify 5 mg tablet RxNorm: 137252 Take 1 Tablet(s) Oral QD take 1 tab po QD #30 refill 5 dx: MDD 12/12/19 22 022 Inactive Abilify 5 mg tablet RxNorm: 142876 Take 1 Tablet(s) Oral QD take 1 tab po QD #30 refill 5 dx: MDD 12/12/19 22 022 Inactive chlorthalidone 25 mg tablet RxNorm: 776499 Take 1 Tablet(s) Oral QAM every morning 12/10/19 22 023 Active Novolog Flexpen U-100 Insulin aspart 100 unit/mL (3 mL) subcutaneous RxNorm: 2005954 Inject 42 Unit(s) Subcutaneous TID in addition to sliding scale 12/10/19 22 022 Inactive d/c 36u pregabalin 50 mg capsule RxNorm: 865047 Take 1 Capsule(s) Oral QAM every morning 11/12/19 22 Inactive tetanus-diphtheria toxoids-Td 2 Lf unit-2 Lf unit/0.5 mL IM suspension RxNorm: 139 Take 0.5 Miscellaneous Intramuscular 11/12/19 22 Inactive need tdap - nursing to administer upon arrival pregabalin 50 mg capsule RxNorm: 081593 Take 1 Capsule(s) Oral QAM every morning 10/16/19 22 022 Inactive pregabalin 50 mg capsule RxNorm: 673008 Take 1 Capsule(s) Oral QAM every morning 10/16/19 22 Inactive pregabalin 50 mg capsule RxNorm: 092422 1 Capsule(s) Oral QAM every morning 10/15/19 22 022 Inactive Shingrix (PF) 50 mcg/0.5 mL intramuscular suspension, kit RxNorm: 0448313 Administer 1/2 Milliliter(s) Intramuscular one time Nursing please administer upon arrival and once administered 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, bi specialist, 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 10/09/19 22 022 Inactive shingrix step 1 Shingrix (PF) 50 mcg/0.5 mL intramuscular suspension, kit RxNorm: 9042957 Administer 1/2 Milliliter(s) Intramuscular one time Nursing please administer upon arrival and once administered 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, bi specialist, 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 10/09/19 22 022 Inactive shingrix step 1 Novolog Flexpen U-100 Insulin aspart 100 unit/mL (3 mL) subcutaneous RxNorm: 0749270 Inject 10 Unit(s) Subcutaneous QHS every night at bedtime with nighttime snack 10/08/19 22 022 Inactive cholecalciferol (vitamin D3) 1,250 mcg (50,000 unit) capsule RxNorm: 745546 Take 1 Capsule(s) Oral QW once a [...] 50 mcg/0.5 mL intramuscular suspension, kit RxNorm: 9635001 ADMINISTER 2-DOSE SERIES PER CDC GUIDELINES 10/08/19 22 Active Shingrix (PF) 50 mcg/0.5 mL intramuscular suspension, kit RxNorm: 6428113 ADMINISTER 2-DOSE SERIES PER CDC GUIDELINES 10/08/19 22 Inactive Novolog Flexpen U-100 Insulin aspart 100 unit/mL (3 mL) subcutaneous RxNorm: 1561386 Inject 36 Unit(s) Subcutaneous TID in addition to sliding scale 10/08/19 22 Inactive Novofine Autocover 30 gauge x 1/3 needle RxNorm: Use 1 Miscellaneous UD as directed Use 1 needle as directed to administer insulin 5 times a day Dx:E11.42. 10/03/19 22 Inactive ok to substitute with any covered alternative pen needle benzoyl peroxide 10 % topical cleanser RxNorm: 066680 Apply 1 Application Topical QD apply to face, wash rinse and dry once daily (may change to QOD if drying) 08/19/19 22 022 Inactive (%covered by insurance) #60ml refill 11 dx: acne benzoyl peroxide 10 % topical cleanser RxNorm: 883413 Apply 1 Application Topical QD apply to face, wash rinse and dry once daily (may change to QOD if drying) 08/19/19 22 022 Inactive (%covered by insurance) #60ml refill 11 dx: acne benzoyl peroxide 10 % topical cleanser RxNorm: 375737 Apply 1 Application Topical QD apply to face, wash rinse and dry once daily (may change to QOD if drying) 08/19/19 22 022 Inactive (%covered by insurance) #60ml refill 11 dx: acne Lyrica 50 mg capsule RxNorm: 054574 Take 1 Capsule(s) Oral QAM every morning Take 1 capsule by mouth once daily 08/19/19 22 022 Inactive benzoyl peroxide 10 % topical cleanser RxNorm: 966540 Apply 1 Application Topical QD apply to face, wash rinse and dry once daily (may change to QOD if drying) 08/19/19 22 022 Inactive (%covered by insurance) #60ml refill 11 dx: acne Lyrica 100 mg capsule RxNorm: 569756 Take 1 Capsule(s) Oral QHS every night at bedtime Take 1 capsule by mouth once daily at bedtime 08/19/19 022 Inactive Lyrica 100 mg capsule RxNorm: 945950 Take 1 Capsule(s) Oral QHS every night at bedtime Take 1 capsule by mouth once daily at bedtime 08/16/19 22 022 Inactive Lyrica 50 mg capsule RxNorm: 988652 Take 1 Capsule(s) Oral QAM every morning Take 1 capsule by mouth once daily 08/16/19 22 Inactive Levemir FlexTouch U-100 Insulin 100 unit/mL (3 mL) subcutaneous pen RxNorm: 714248 Inject 86 Unit(s) Subcutaneous BID 08/05/19 22 022 Inactive d/c 83units BID Lyrica 100 mg capsule RxNorm: 543745 Take 1 Capsule(s) Oral QHS every night at bedtime Take 1 capsule by mouth once daily at bedtime 07/14/19 022 Inactive Lyrica 50 mg capsule RxNorm: 971638 Take 1 Capsule(s) Oral QAM every morning Take 1 capsule by mouth once daily 07/14/19 22 022 Inactive Levemir FlexTouch U-100 Insulin 100 unit/mL (3 mL) subcutaneous pen RxNorm: 901904 Inject 83 Unit(s) Subcutaneous BID 07/08/19 22 [...] test strip hydralazine 50 mg tablet RxNorm: 627034 Take 1 Tablet(s) Oral QID 05/05/20 21 022 Inactive isosorbide mononitrate ER 30 mg tablet,extended release 24 hr RxNorm: 140529 Take 1 Tablet(s) Oral QD 05/05/20 No Stop Date Active venlafaxine ER 225 mg tablet,extended release 24 hr RxNorm: 839893 Take 1 Tablet(s) Oral QD 05/05/20 21 021 Inactive venlafaxine ER 225 mg tablet,extended release 24 hr RxNorm: 401858 Take 1 Tablet(s) Oral QD 12/20 022 Inactive hydralazine 50 mg tablet RxNorm: 478248 Take 1 Tablet(s) Oral QID 05/05/20 21 Inactive aspirin 81 mg tablet,delayed release RxNorm: 202451 Take 1 Tablet(s) Oral QD 03/31/20 Inactive Zetia 10 mg tablet RxNorm: 776157 Take 1 Tablet(s) Oral QD 03/31/20 Inactive Vitamin D2 1,250 mcg (50,000 unit) capsule RxNorm: 4783629 Take 1 Capsule(s) Oral QW once a week x 12 weeks 03/31/20 Inactive Vitamin D2 1,250 mcg (50,000 unit) capsule RxNorm: 0337998 Take 1 Capsule(s) Oral QW once a week 03/31/20 Inactive Zetia 10 mg tablet RxNorm: 476267 Take 1 Tablet(s) Oral QD 03/31/20 Inactive hydralazine 25 mg tablet RxNorm: 807624 Take 1 Tablet(s) Oral QID 03/31/20 21 021 Inactive hydralazine 25 mg tablet RxNorm: 405381 Take 1 Tablet(s) Oral QID 03/31/20 021 Inactive hydralazine 10 mg tablet RxNorm: 176074 Take 1 Tablet(s) Oral QID 03/03/20 021 Inactive cephalexin 500 mg tablet RxNorm: 813863 Take 1 Tablet(s) Oral QID 02/27/20 021 Inactive cephalexin 500 mg tablet RxNorm: 923281 Take 1 Tablet(s) Oral QID 02/27/20 021 Inactive lisinopril 40 mg tablet RxNorm: 415241 Take 1 Tablet(s) Oral QD 02/11/20 21 023 Inactive Eliquis 5 mg tablet RxNorm: 0919684 Take 1 Tablet(s) Oral BID 01/05/20 21 022 Inactive Eliquis 5 mg tablet RxNorm: 8414500 Take 2 Tablet(s) Oral QD 01/01/20 21 021 Inactive Lyrica 50 mg capsule RxNorm: 023764 Take 1 Capsule(s) Oral QAM every morning 12/24/19 21 021 Inactive Lyrica 100 mg capsule RxNorm: 549688 Take 1 Capsule(s) Oral QHS every night at bedtime 12/24/19 21 021 Inactive clotrimazole 1 % topical cream RxNorm: 982966 Apply to right foot and toes Topical BID 12/04/19 21 023 Inactive metoprolol succinate ER 200 mg tablet,extended release 24 hr RxNorm: 859092 Take 1 Tablet(s) Oral QD 12/04/19 21 023 Inactive ciprofloxacin 500 mg tablet RxNorm: 578973 Take 1 Tablet(s) Oral QD 11/30/19 21 021 Inactive DX ofloxacin otic drops Accu-Chek Guide test strips RxNorm: USE 1 TO CHECK GLUCOSE 4 TIMES DAILY AND NEEDED 11/15/19 21 023 Inactive Blood Glucose Test strips RxNorm: Use 1 Test Strip QID at PRN 11/05/19 21 023 Inactive E11.42 lisinopril 30 mg tablet RxNorm: 892141 Take 1 Tablet(s) Oral QD 10/30/19 021 Inactive lisinopril 20 mg tablet RxNorm: 157021 Take 1 Tablet(s) Oral QD 10/23/19 21 021 Inactive lisinopril 20 mg tablet RxNorm: 268597 Take 1 Tablet(s) Oral QD 10/23/19 21 021 Inactive lisinopril 10 mg tablet RxNorm: 280790 Take 1 Tablet(s) Oral QD 10/02/19 21 021 Inactive icosapent ethyl 1 gram capsule RxNorm: 0388521 Take 2 Capsule(s) (2 gm) Oral BID with meals 09/12/19 21 022 Inactive Okay to dispense one 2gm tab if you have that available. icosapent ethyl 1 gram capsule RxNorm: 7714119 Take 2 Capsule(s) Oral BID 09/12/19 21 04/29/2 021 Inactive Okay to dispense one 2gm tab if you have that available. amlodipine 10 mg tablet RxNorm: 809765 Take 1 Tablet(s) Oral QD 09/04/19 Inactive aspirin 81 mg tablet,delayed release RxNorm: 517078 Take 1 Tablet(s) Oral QD 09/04/19 021 Inactive Levemir FlexTouch U-100 Insulin 100 unit/mL (3 mL) subcutaneous pen RxNorm: 692140 Inject 150 Unit(s) Subcutaneous BID 09/04/19 21 022 Inactive venlafaxine ER 150 mg tablet,extended release 24 hr RxNorm: 939934 Take 1 Tablet(s) Oral QD 09/04/19 Inactive clotrimazole-betame thasone 1 %-0.05 % topical cream RxNorm: 584725 Apply to rash on red area on left abdomen/chest Topical BID 08/10/19 Inactive amlodipine 5 mg tablet RxNorm: 759704 Take 1 Tablet(s) Oral QD 07/31/19 Inactive cephalexin 500 mg tablet RxNorm: 627615 Take 1 Tablet(s) Oral BID BID - Twice Daily 07/31/19 021 Inactive Start 08/01/20 pantoprazole 40 mg tablet,delayed release RxNorm: 868652 Take 1 Tablet(s) Oral QAM every morning 07/08/19 022 Inactive senna 8.6 mg tablet RxNorm: 081678 Take 1 Tablet(s) Oral QD 07/08/19 022 Inactive pravastatin 80 mg tablet RxNorm: 654281 Take 1 Tablet(s) Oral QHS every night at bedtime 07/08/19 022 Inactive carbamazepine 200 mg tablet RxNorm: 090270 Take 1 Tablet(s) Oral BID 07/08/19 022 Inactive torsemide 20 mg tablet RxNorm: 144836 Take 1 Tablet(s) Oral QD 07/08/19 21 023 Inactive clopidogrel 75 mg tablet RxNorm: 822916 Take 1 Tablet(s) Oral QD 07/08/19 21 021 Inactive Blood Glucose Test strips RxNorm: Use 1 Test Strip QID at PRN 07/08/19 21 Inactive E11.42 Novolog Flexpen U-100 Insulin aspart 100 unit/mL (3 mL) subcutaneous RxNorm: 5463989 Administer per sliding scale Milliliter(s) Subcutaneous TID 151-200: 10 u; 201-250: 20 u; 251-300: 30 u; 301-350: 40 u; 351-400: 50 u. 07/08/19 21 022 Inactive lisinopril 5 mg tablet RxNorm: 146823 Take 1 Tablet(s) Oral QD 07/08/19 21 Inactive Novolog Flexpen U-100 Insulin aspart 100 unit/mL (3 mL) subcutaneous RxNorm: 3807130 Inject 85 Unit(s) Subcutaneous TID 07/08/19 Inactive clotrimazole 1 % topical cream RxNorm: 943642 Apply to bilateral groin areas Topical BID 07/08/19 21 Inactive metoprolol succinate ER 200 mg tablet,extended release 24 hr RxNorm: 728329 Take 1 Tablet(s) Oral QD 07/08/19 21 Inactive Vitamin D3 25 mcg (1,000 unit) tablet RxNorm: 988435 Take 1 Tablet(s) Oral QD 07/08/19 021 Inactive isosorbide dinitrate 30 mg tablet RxNorm: 173208 Take 1 Tablet(s) Oral QD 07/08/19 021 Inactive Levemir FlexTouch U-100 Insulin 100 unit/mL (3 mL) subcutaneous pen RxNorm: 853226 Inject 140 Unit(s) Subcutaneous BID 07/08/19 Inactive venlafaxine 75 mg tablet RxNorm: 378320 Take 1 Tablet(s) Oral QD 07/08/19 21 Inactive acetaminophen 500 mg tablet RxNorm: 668682 Take 1 Tablet(s) Oral TID as needed for headache 06/18/19 Inactive acetaminophen 500 mg tablet RxNorm: 527146 Take 1 Tablet(s) Oral TID as needed for headache 06/18/19 21 021 Inactive Lyrica 100 mg capsule RxNorm: 049060 Take 1 Capsule(s) Oral QHS every night at bedtime 06/11/19 21 021 Inactive Lyrica 50 mg capsule RxNorm: 222569 Take 1 Capsule(s) Oral QAM every morning 06/10/19 21 021 Inactive hydrocortisone 2.5 % topical cream RxNorm: 111450 Apply to bilateral groin creases Topical BID 05/15/20 20 021 Inactive clotrimazole 1 % topical cream RxNorm: 809288 Apply to bilateral groin areas Topical BID 05/15/20 20 021 Inactive Lyrica 50 mg capsule RxNorm: 701054 Take 1 Capsule(s) Oral QAM every morning 05/14/20 20 020 Inactive Lyrica 100 mg capsule RxNorm: 292044 Take 1 Capsule(s) Oral QHS every night [...] Inactive Nystop 100,000 unit/gram topical powder RxNorm: 407938 Apply to abd folds, under breasts and L side of groin Topical BID x 14 days, then BID PRN 04/08/20 20 021 Inactive dx: yeast dermatitis Lyrica 100 mg capsule RxNorm: 711031 Take 1 Capsule(s) Oral QHS every night at bedtime 03/13/20 20 Inactive Lyrica 50 mg capsule RxNorm: 376930 Take 1 Capsule(s) Oral QAM every morning 03/13/20 20 Inactive ketoconazole 2 % shampoo RxNorm: 162572 Apply Topical two times a week with showers 03/11/20 20 Inactive cholecalciferol (vitamin D3) 50 mcg (2,000 unit) tablet RxNorm: 093992 Take 1 Tablet(s) Oral QD 03/11/20 20 Inactive Zetia 10 mg tablet RxNorm: 897880 Take 1 Tablet(s) Oral QD 03/07/20 20 Inactive Zetia 10 mg tablet RxNorm: 530053 Take 1 Tablet(s) Oral QD 03/07/20 20 Inactive Lyrica 50 mg capsule RxNorm: 867663 Take 1 Capsule(s) Oral QAM every morning 02/15/20 20 Inactive Lyrica 100 mg capsule RxNorm: 323005 Take 1 Capsule(s) Oral QHS every night at bedtime 02/15/20 20 Inactive Lyrica 100 mg capsule RxNorm: 160473 Take 1 Capsule(s) Oral QHS every night at bedtime 02/15/20 20 Inactive Lyrica 50 mg capsule RxNorm: 670338 Take 1 Capsule(s) Oral QAM every morning 02/15/20 20 Inactive venlafaxine ER 75 mg capsule,extended release 24 hr RxNorm: 581893 Take 3 Capsule(s) Oral QD 06/12/2021 Activepolyethylene glycol 3350 17 gram/dose oral powderRxNorm: 752602Gsft 17=1 capful Gram(s) Oral BID as needed mix with 4-8oz of qipmig6906/12/2021ctive Levemir FlexTouch U-100 Insulin 100 unit/mL (3 mL) subcutaneous penRxNorm: 372529Mbpolu 80 Unit(s) Subcutaneous BID/Inactiveloperamide 2 mg capsuleRxNorm: 150316Zfqj 1 Capsule(s) Oral QID as uowqqw0706/12/2021ctive Novolog Flexpen U-100 Insulin aspart 100 unit/mL (3 mL) subcutaneousRxNorm: 2251181Mjgozg 30 Unit(s) Subcutaneous TID with mealsInactive Medication [...] Codes Status Date Referral: [facility] WPtel: [address], [address] [id number] USReferralRecords Prrdrxwl47/08/2023Referral: [facility] WPtel: [address] [id number]/12/2022Referral: General CardiologyReferralCompleted 1Referral: General PsychologistReferralClosed Instructions Comment Date Leonid is a Male being seen living at [facility]. Initial [facility] visit 01/2020. PMHx including DMII, CAD w/ 5 stents, Depression, Seizure Disorder and CKD stage 3. He [facility] into [facility] in 12/2019 but after a hospitalization 05/2021 he moved to the [facility] to have closer nursing attention. Sister Jyotsna involved in his care cell# [phone] Guardian: Don (tapan met in person 09/01/21), now has Lexii (same group as don)Lab Schedule: * 10/06/2022
--- OUTSIDE RECORDS SUMMARY | 2022-11-09 23:30 | XMS_ITS | CCD ---
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 Name Role Phone Tapan Shirley PA-C Primary Care Provider Unavailabl e Tapan Shirley PA-C Chronic Care Management Unavaila ble Summary Purpose DataExchange Insurance Providers Payer name Policy type / Coverage type Covered constitution party ID Effective Begin Date Effective End Date [place] Medicare Part B [id number] Unknown Unknown [place] Medicare Part B [id number] Unknown Unknown Family history Sister Brittany Suggs Diagnosis Age At Onset No Family Disease Entered N/A Runs in the family Diagnosis Age At Onset No Known Diseases N/A Sister Blanka Mcduffie Diagnosis Age At Onset No Family Disease Entered N/A Social History Social History Element Codes Description Effec tive Dates Marital status Unknown Single 10/07/2021 Living arrangements Unknown Longterm 09/03/[address]: 8899447 Non-Smoker / No History of Smoking 09/02/[address]: 513984184 No Alcohol Consum ption 09/02/2020 Allergies, Adverse Reactions, Alerts Substance Reaction Codes Entered Date Inactivated Date Status LISINOPRIL RxNorm: 7969610No Inactive DateActiveMetformin GZfTnjgdqo17/28/2020No Inactive DateActive Problems Condition Codes Effective Dates Condition St atus Coronary artery disease invo lving [place] coronary artery of [place] heart, angina presence unspecified ICD-10: I25.10 ICD-9: 414.01112ActiveHyperlipidemia associated with type 2 diabetes mellitusICD-10: E11.69 ICD-9: 250.8011ctiveHypertensive heart disease without heart failure ICD-10: I11.9 ICD-9: 402.9011ctiveShortness of breathICD-10: R06.02 ICD-9: 786.0511ctiveStage 2 chronic 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ICD-10: E11.22 ICD-9: 250.4011/2ActiveType 2 diabetes mellitus with diabetic polyneuropathy, with long-term current use of insulinICD-10: E11.42 ICD-9: 250.6011/2ActiveVitamin D deficiencyICD-10: E55.9 ICD-9: 268.911/ctiveMajor depression, recurrentICD-10: F33.9 ICD-9: 296.3011/ctiveSeizure disorderICD-10: G40.909 ICD-9: 345.9011/ctiveCellulitisICD-10: L03.90 ICD-9: 682.910/ctiveRecurrent major depressive disorder, in partial remissionICD-10: F33.41 ICD-9: 296.3510/ctiveReducible umbilical herniaICD-10: K42.9 ICD-9: 553.110/ctiveBMI 60.0-69.9, adultICD-10: Z68.44 ICD-9: V85.4410/ctiveInappropriate sexual behaviorICD-10: Z72.89 ICD-9: 312.8910/ctiveHx of deep venous thrombosisICD-10: Z86.718 ICD-9: V12.5109/ctiveHypercoagulable stateICD-10: D68.59 ICD-9: 289.8109/ctiveOnychogryposisICD-10: L60.2 ICD-9: 703.809/2ActiveParaparesis of both lower limbsICD-10: G82.20 ICD-9: 344.109/ctivePVD (peripheral vascular disease)ICD-10: I73.9 ICD-9: 443.909/2ActiveDepressionICD-10: F32.9 ICD-9: 61731/2ResolvedDVT (deep venous thrombosis)ICD-10: I82.409 ICD-9: 453.4009/2ResolvedEncounter for immunizationICD-10: Z23 ICD-9: V03.8909/2ResolvedLong term (current) use of insulinICD-10: Z79.4 09esolvedMuscular painICD-10: M79.10 ICD-9: 729.109/esolvedPain of right heelICD-10: M79.671 ICD-9: 729.509/esolvedDandruff in adultICD-10: L21.0 ICD-9: 690.1808/2ActiveHypertension associated with diabetesICD-10: E11.59 ICD-9: 250.8008/esolvedHistory of [...] L91.8 ICD-9: 701.911/ctiveCallus of heelICD-10: L84 ICD-9: 62805/ctiveImpacted cerumen, left earICD-10: H61.22 ICD-9: 380.408/ctiveContact with [...] Z20.828 ICD-9: V01.7902esolvedHyperhidrosis of palmsICD-10: L74.512 ICD-9: 705.9347HcoqdeTdffdjhaTajdnje71/28/2020ActiveDiabetes mellitus Type 4Wbbzotm17/28/2020ActiveAnemia in chronic kidney diseaseICD-10: D63.1 02/12/2020ResolvedHyperlipidemia, unspecifiedICD-10: E78.509Resolved Medications Medication Codes Instructions Start Date Stop Date Status Fill Instructions Novolog Flexpen U-100 Insulin aspart 100 unit/mL (3 mL) subcutaneous RxNorm: 6396445 Inject 10 Unit(s) Subcutaneous QHS every night at bedtime with nighttime snack 04/08/20 22 022 Inactive Novolog Flexpen U-100 Insulin aspart 100 unit/mL (3 mL) subcutaneous RxNorm: 1810523 Inject 42 Unit(s) Subcutaneous TID in addition to sliding scale 04/08/20 22 022 Inactive d/c 36u albuterol sulfate HFA 90 mcg/actuation aerosol inhaler RxNorm: 7177068 Take 2 Puff(s) Inhalation Q4H every four hours as needed as needed for SOB, cough, or wheezing 04/07/20 22 030 Active diphenhydramine 50 mg tablet RxNorm: 9944849 Take 1 Tablet(s) Oral Q6H every 6 hours as needed 04/06/20 022 Inactive diphenhydramine 50 mg tablet RxNorm: 1666159 1 Tablet(s) Oral Q6H every 6 hours as needed 04/06/20 022 Inactive Abilify 15 mg tablet RxNorm: 866101 1/2 Tablet(s) Oral QD 03/10/20 023 Inactive Shingrix (PF) 50 mcg/0.5 mL intramuscular suspension, kit RxNorm: 1962019 Administer 1/2 Milliliter(s) Intramuscular QD one time shingrix step 2 ( step 1 given 11/04/21) WITH needle - Nursing please administer upon arrival and once administered 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, electric frying pan repairer, 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, and lot# so we can update [facility]IC 02/18/20 22 022 Inactive dispense with needle Shingrix (PF) 50 mcg/0.5 mL intramuscular suspension, kit RxNorm: 2224164 Administer 1/2 Milliliter(s) Intramuscular QD one time shingrix step 2 ( step 1 given 11/04/21) WITH needle - Nursing please administer upon arrival and once administered 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, electric frying pan repairer, 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, and lot# so we can update MIIC 02/18/20 22 022 Inactive dispense with needle acetaminophen 500 mg tablet RxNorm: 423526 Take 1 Tablet(s) Oral TID 01/08/20 22 023 Active d/c PRN order Lyrica 150 mg capsule RxNorm: 738268 Take 1 Capsule(s) Oral QHS every night at bedtime 01/08/20 22 023 Inactive d/c 100mg dose polyethylene glycol 3350 17 gram/dose oral powder RxNorm: 839873 Take 17=1 capful Gram(s) Oral QD mix with 4-8oz of liquid 01/08/20 22 023 Active take this in addition to BID prn order Lyrica 100 mg capsule RxNorm: 532117 Take 1 Capsule(s) Oral QAM every morning 01/08/20 22 022 Inactive d/c 50mg dose Abilify 5 mg tablet RxNorm: 069011 Take 1 Tablet(s) Oral QD take 1 tab po QD #30 refill 5 dx: MDD 12/12/19 22 022 Inactive Abilify 5 mg tablet RxNorm: 345116 Take 1 Tablet(s) Oral QD take 1 tab po QD #30 refill 5 dx: MDD 12/12/19 22 022 Inactive chlorthalidone 25 mg tablet RxNorm: 171325 Take 1 Tablet(s) Oral QAM every morning 12/10/19 22 023 Active Novolog Flexpen U-100 Insulin aspart 100 unit/mL (3 mL) subcutaneous RxNorm: 4541849 Inject 42 Unit(s) Subcutaneous TID in addition to sliding scale 12/10/19 22 022 Inactive d/c 36u pregabalin 50 mg capsule RxNorm: 664164 Take 1 Capsule(s) Oral QAM every morning 11/12/19 22 022 Inactive tetanus-diphtheria toxoids-Td 2 Lf unit-2 Lf unit/0.5 mL IM suspension RxNorm: 139 Take 0.5 Miscellaneous Intramuscular 11/12/19 22 022 Inactive need tdap - nursing to administer upon arrival pregabalin 50 mg capsule RxNorm: 060736 Take 1 Capsule(s) Oral QAM every morning 10/16/19 22 022 Inactive pregabalin 50 mg capsule RxNorm: 304374 Take 1 Capsule(s) Oral QAM every morning 10/16/19 22 022 Inactive pregabalin 50 mg capsule RxNorm: 015639 1 Capsule(s) Oral QAM every morning 10/15/19 22 022 Inactive Shingrix (PF) 50 mcg/0.5 mL intramuscular suspension, kit RxNorm: 8474935 Administer 1/2 Milliliter(s) Intramuscular one time Nursing please administer upon arrival and once administered 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, electric frying pan repairer, 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 10/09/19 22 022 Inactive shingrix step 1 Shingrix (PF) 50 mcg/0.5 mL intramuscular suspension, kit RxNorm: 3410152 Administer 1/2 Milliliter(s) Intramuscular one time Nursing please administer upon arrival and once administered 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, electric frying pan repairer, 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 10/09/19 22 022 Inactive shingrix step 1 Novolog Flexpen U-100 Insulin aspart 100 unit/mL (3 mL) subcutaneous RxNorm: 7441061 Inject 10 Unit(s) Subcutaneous QHS every night at bedtime with nighttime snack 10/08/19 22 022 Inactive cholecalciferol (vitamin D3) 1,250 mcg (50,000 unit) capsule RxNorm: 321881 Take 1 Capsule(s) Oral QW once a [...] once ADMINISTER PER CDC GUIDELINES 10/08/19 022 Active Tdap dx: tetanus prophylaxis, please dispense syringe and needle Shingrix (PF) 50 mcg/0.5 mL intramuscular suspension, kit RxNorm: 3878525 ADMINISTER 2-DOSE SERIES PER CDC GUIDELINES 10/08/19 22 Active Shingrix (PF) 50 mcg/0.5 mL intramuscular suspension, kit RxNorm: 2268430 ADMINISTER 2-DOSE SERIES PER CDC GUIDELINES 10/08/19 22 Inactive Novolog Flexpen U-100 Insulin aspart 100 unit/mL (3 mL) subcutaneous RxNorm: 1584797 Inject 36 Unit(s) Subcutaneous TID in addition to sliding scale 10/08/19 22 Inactive Novofine Autocover 30 gauge x 1/3 needle RxNorm: Use 1 Miscellaneous UD as directed Use 1 needle as directed to administer insulin 5 times a day Dx:E11.42. 10/03/19 022 Inactive ok to substitute with any covered alternative pen needle benzoyl peroxide 10 % topical cleanser RxNorm: 786865 Apply 1 Application Topical QD apply to face, wash rinse and dry once daily (may change to QOD if drying) 08/19/19 22 022 Inactive (%covered by insurance) #60ml refill 11 dx: acne benzoyl peroxide 10 % topical cleanser RxNorm: 896237 Apply 1 Application Topical QD apply to face, wash rinse and dry once daily (may change to QOD if drying) 08/19/19 22 022 Inactive (%covered by insurance) #60ml refill 11 dx: acne benzoyl peroxide 10 % topical cleanser RxNorm: 305168 Apply 1 Application Topical QD apply to face, wash rinse and dry once daily (may change to QOD if drying) 08/19/19 22 022 Inactive (%covered by insurance) #60ml refill 11 dx: acne Lyrica 50 mg capsule RxNorm: 097363 Take 1 Capsule(s) Oral QAM every morning Take 1 capsule by mouth once daily 08/19/19 22 022 Inactive benzoyl peroxide 10 % topical cleanser RxNorm: 481333 Apply 1 Application Topical QD apply to face, wash rinse and dry once daily (may change to QOD if drying) 08/19/19 022 Inactive (%covered by insurance) #60ml refill 11 dx: acne Lyrica 100 mg capsule RxNorm: 902413 Take 1 Capsule(s) Oral QHS every night at bedtime Take 1 capsule by mouth once daily at bedtime 08/19/19 22 022 Inactive Lyrica 100 mg capsule RxNorm: 036244 Take 1 Capsule(s) Oral QHS every night at bedtime Take 1 capsule by mouth once daily at bedtime 08/16/19 22 022 Inactive Lyrica 50 mg capsule RxNorm: 513917 Take 1 Capsule(s) Oral QAM every morning Take 1 capsule by mouth once daily 08/16/19 22 022 Inactive Levemir FlexTouch U-100 Insulin 100 unit/mL (3 mL) subcutaneous pen RxNorm: 536472 Inject 86 Unit(s) Subcutaneous BID 08/05/19 22 022 Inactive d/c 83units BID Lyrica 100 mg capsule RxNorm: 768556 Take 1 Capsule(s) Oral QHS every night at bedtime Take 1 capsule by mouth once daily at bedtime 07/14/19 22 022 Inactive Lyrica 50 mg capsule RxNorm: 877095 Take 1 Capsule(s) Oral QAM every morning Take 1 capsule by mouth once daily 07/14/19 22 022 Inactive Levemir FlexTouch U-100 Insulin 100 unit/mL (3 mL) subcutaneous pen RxNorm: 296956 Inject 83 Unit(s) Subcutaneous BID 07/08/19 22 [...] test strip hydralazine 50 mg tablet RxNorm: 617376 Take 1 Tablet(s) Oral QID 05/05/20 Inactive isosorbide mononitrate ER 30 mg tablet,extended release 24 hr RxNorm: 236043 Take 1 Tablet(s) Oral QD 05/05/20 No Stop Date Active venlafaxine ER 225 mg tablet,extended release 24 hr RxNorm: 140889 Take 1 Tablet(s) Oral QD 05/05/20 Inactive venlafaxine ER 225 mg tablet,extended release 24 hr RxNorm: 104439 Take 1 Tablet(s) Oral QD 05/05/20 Inactive hydralazine 50 mg tablet RxNorm: 884222 Take 1 Tablet(s) Oral QID 05/05/20 Inactive aspirin 81 mg tablet,delayed release RxNorm: 728980 Take 1 Tablet(s) Oral QD 03/31/20 Inactive Zetia 10 mg tablet RxNorm: 248297 Take 1 Tablet(s) Oral QD 03/31/20 Inactive Vitamin D2 1,250 mcg (50,000 unit) capsule RxNorm: 9321262 Take 1 Capsule(s) Oral QW once a week x 12 weeks 03/31/20 Inactive Vitamin D2 1,250 mcg (50,000 unit) capsule RxNorm: 2977547 Take 1 Capsule(s) Oral QW once a week 03/31/20 Inactive Zetia 10 mg tablet RxNorm: 202827 Take 1 Tablet(s) Oral QD 03/31/20 Inactive hydralazine 25 mg tablet RxNorm: 422731 Take 1 Tablet(s) Oral QID 03/31/20 Inactive hydralazine 25 mg tablet RxNorm: 563251 Take 1 Tablet(s) Oral QID 11 021 Inactive hydralazine 10 mg tablet RxNorm: 241199 Take 1 Tablet(s) Oral QID 03/03/20 021 Inactive cephalexin 500 mg tablet RxNorm: 246722 Take 1 Tablet(s) Oral QID 02/27/20 021 Inactive cephalexin 500 mg tablet RxNorm: 974753 Take 1 Tablet(s) Oral QID 02/27/20 021 Inactive lisinopril 40 mg tablet RxNorm: 272465 Take 1 Tablet(s) Oral QD 02/11/20 023 Inactive Eliquis 5 mg tablet RxNorm: 1728455 Take 1 Tablet(s) Oral BID 01/05/20 022 Inactive Eliquis 5 mg tablet RxNorm: 2597145 Take 2 Tablet(s) Oral QD 01/01/20 21 021 Inactive Lyrica 50 mg capsule RxNorm: 506759 Take 1 Capsule(s) Oral QAM every morning 12/24/19 21 021 Inactive Lyrica 100 mg capsule RxNorm: 515487 Take 1 Capsule(s) Oral QHS every night at bedtime 12/24/19 21 021 Inactive clotrimazole 1 % topical cream RxNorm: 887345 Apply to right foot and toes Topical BID 12/04/19 21 023 Inactive metoprolol succinate ER 200 mg tablet,extended release 24 hr RxNorm: 292916 Take 1 Tablet(s) Oral QD 12/04/19 21 023 Inactive ciprofloxacin 500 mg tablet RxNorm: 421334 Take 1 Tablet(s) Oral QD 11/30/19 21 021 Inactive DX ofloxacin otic drops Accu-Chek Guide test strips RxNorm: USE 1 TO CHECK GLUCOSE 4 TIMES DAILY AND NEEDED 11/15/19 21 023 Inactive Blood Glucose Test strips RxNorm: Use 1 Test Strip QID at PRN 11/05/19 21 023 Inactive E11.42 lisinopril 30 mg tablet RxNorm: 361513 Take 1 Tablet(s) Oral QD 10/30/19 21 Inactive lisinopril 20 mg tablet RxNorm: 148431 Take 1 Tablet(s) Oral QD 10/23/19 21 Inactive lisinopril 20 mg tablet RxNorm: 085020 Take 1 Tablet(s) Oral QD 10/23/19 21 Inactive lisinopril 10 mg tablet RxNorm: 198296 Take 1 Tablet(s) Oral QD 10/02/19 Inactive icosapent ethyl 1 gram capsule RxNorm: 8240398 Take 2 Capsule(s) (2 gm) Oral BID with meals 09/12/19 Inactive Okay to dispense one 2gm tab if you have that available. icosapent ethyl 1 gram capsule RxNorm: 8473287 Take 2 Capsule(s) Oral BID 09/12/19 021 Inactive Okay to dispense one 2gm tab if you have that available. amlodipine 10 mg tablet RxNorm: 017681 Take 1 Tablet(s) Oral QD 09/04/19 022 Inactive aspirin 81 mg tablet,delayed release RxNorm: 309541 Take 1 Tablet(s) Oral QD 09/04/19 Inactive Levemir FlexTouch U-100 Insulin 100 unit/mL (3 mL) subcutaneous pen RxNorm: 015814 Inject 150 Unit(s) Subcutaneous BID 09/04/19 022 Inactive venlafaxine ER 150 mg tablet,extended release 24 hr RxNorm: 953719 Take 1 Tablet(s) Oral QD 09/04/19 021 Inactive clotrimazole-betame thasone 1 %-0.05 % topical cream RxNorm: 464845 Apply to rash on red area on left abdomen/chest Topical BID 08/10/19 Inactive amlodipine 5 mg tablet RxNorm: 910124 Take 1 Tablet(s) Oral QD 07/31/19 Inactive cephalexin 500 mg tablet RxNorm: 419108 Take 1 Tablet(s) Oral BID BID - Twice Daily 07/31/19 21 Inactive Start 08/01/20 pantoprazole 40 mg tablet,delayed release RxNorm: 184225 Take 1 Tablet(s) Oral QAM every morning 07/08/19 022 Inactive senna 8.6 mg tablet RxNorm: 514894 Take 1 Tablet(s) Oral QD 07/08/19 022 Inactive pravastatin 80 mg tablet RxNorm: 624126 Take 1 Tablet(s) Oral QHS every night at bedtime 07/08/19 Inactive carbamazepine 200 mg tablet RxNorm: 685957 Take 1 Tablet(s) Oral BID 07/08/19 022 Inactive torsemide 20 mg tablet RxNorm: 658143 Take 1 Tablet(s) Oral QD 07/08/19 023 Inactive clopidogrel 75 mg tablet RxNorm: 600511 Take 1 Tablet(s) Oral QD 07/08/19 021 Inactive Blood Glucose Test strips RxNorm: Use 1 Test Strip QID at PRN 07/08/19 Inactive E11.42 Novolog Flexpen U-100 Insulin aspart 100 unit/mL (3 mL) subcutaneous RxNorm: 0492584 Administer per sliding scale Milliliter(s) Subcutaneous TID 151-200: 10 u; 201-250: 20 u; 251-300: 30 u; 301-350: 40 u; 351-400: 50 u. 07/08/19 21 022 Inactive lisinopril 5 mg tablet RxNorm: 760483 Take 1 Tablet(s) Oral QD 07/08/19 Inactive Novolog Flexpen U-100 Insulin aspart 100 unit/mL (3 mL) subcutaneous RxNorm: 9346422 Inject 85 Unit(s) Subcutaneous TID 07/08/19 022 Inactive clotrimazole 1 % topical cream RxNorm: 608491 Apply to bilateral groin areas Topical BID 07/08/19 022 Inactive metoprolol succinate ER 200 mg tablet,extended release 24 hr RxNorm: 494592 Take 1 Tablet(s) Oral QD 07/08/19 021 Inactive Vitamin D3 25 mcg (1,000 unit) tablet RxNorm: 769987 Take 1 Tablet(s) Oral QD 07/08/19 Inactive isosorbide dinitrate 30 mg tablet RxNorm: 775207 Take 1 Tablet(s) Oral QD 07/08/19 Inactive Levemir FlexTouch U-100 Insulin 100 unit/mL (3 mL) subcutaneous pen RxNorm: 435233 Inject 140 Unit(s) Subcutaneous BID 07/08/19 Inactive venlafaxine 75 mg tablet RxNorm: 976142 Take 1 Tablet(s) Oral QD 07/08/19 Inactive acetaminophen 500 mg tablet RxNorm: 975349 Take 1 Tablet(s) Oral TID as needed for headache 06/18/19 Inactive acetaminophen 500 mg tablet RxNorm: 706297 Take 1 Tablet(s) Oral TID as needed for headache 06/18/19 Inactive Lyrica 100 mg capsule RxNorm: 889132 Take 1 Capsule(s) Oral QHS every night at bedtime 06/11/19 Inactive Lyrica 50 mg capsule RxNorm: 973952 Take 1 Capsule(s) Oral QAM every morning 06/10/19 Inactive hydrocortisone 2.5 % topical cream RxNorm: 710271 Apply to bilateral groin creases Topical BID 05/15/20 20 021 Inactive clotrimazole 1 % topical cream RxNorm: 410724 Apply to bilateral groin areas Topical BID 05/15/20 20 021 Inactive Lyrica 50 mg capsule RxNorm: 823895 Take 1 Capsule(s) Oral QAM every morning 05/14/20 20 Inactive Lyrica 100 mg capsule RxNorm: 406701 Take 1 Capsule(s) Oral QHS every night at bedtime 05/14/20 20 Inactive Blood Glucose Monitoring kit RxNorm: Use as directed QID and PRN 04/24/20 20 021 Inactive Lancets,Thin 28 gauge RxNorm: Use 1 as directed QID and PRN 04/24/20 20 12/09/2 020 Inactive Blood Glucose Test strips RxNorm: [...] Inactive Nystop 100,000 unit/gram topical powder RxNorm: 530858 Apply to abd folds, under breasts and L side of groin Topical BID x 14 days, then BID PRN 04/08/20 20 Inactive dx: yeast dermatitis Lyrica 100 mg capsule RxNorm: 887803 Take 1 Capsule(s) Oral QHS every night at bedtime 03/13/20 20 Inactive Lyrica 50 mg capsule RxNorm: 871247 Take 1 Capsule(s) Oral QAM every morning 03/13/20 20 Inactive ketoconazole 2 % shampoo RxNorm: 444851 Apply Topical two times a week with showers 03/11/20 20 Inactive cholecalciferol (vitamin D3) 50 mcg (2,000 unit) tablet RxNorm: 110341 Take 1 Tablet(s) Oral QD 03/11/20 20 021 Inactive Zetia 10 mg tablet RxNorm: 450750 Take 1 Tablet(s) Oral QD 03/07/20 20 021 Inactive Zetia 10 mg tablet RxNorm: 258292 Take 1 Tablet(s) Oral QD 03/07/20 20 Inactive Lyrica 50 mg capsule RxNorm: 195827 Take 1 Capsule(s) Oral QAM every morning 02/15/20 20 Inactive Lyrica 100 mg capsule RxNorm: 556269 Take 1 Capsule(s) Oral QHS every night at bedtime 02/15/20 20 Inactive Lyrica 100 mg capsule RxNorm: 305117 Take 1 Capsule(s) Oral QHS every night at bedtime 02/15/20 20 Inactive Lyrica 50 mg capsule RxNorm: 151084 Take 1 Capsule(s) Oral QAM every morning 02/15/20 20 Inactive venlafaxine ER 75 mg capsule,extended release 24 hr RxNorm: 169906 Take 3 Capsule(s) Oral QD 06/12/2021 Activepolyethylene glycol 3350 17 gram/dose oral powderRxNorm: 733580Nnxu 17=1 capful Gram(s) Oral BID as needed mix with 4-8oz of kajhtq0806/12/2021ctive Levemir FlexTouch U-100 Insulin 100 unit/mL (3 mL) subcutaneous penRxNorm: 319250Arjwhu 80 Unit(s) Subcutaneous BID07/14//Inactiveloperamide 2 mg capsuleRxNorm: 968776Oels 1 Capsule(s) Oral QID as rwyhjx8506/12/2021ctive Novolog Flexpen U-100 Insulin aspart 100 unit/mL (3 mL) subcutaneousRxNorm: 8119147Anboas 30 Unit(s) Subcutaneous TID with meals/Inactive Medication [...] Codes Status Date Referral: [facility] WPtel: [phone] [id number] [place]ReferralRecords Khhjfval29/08/2023Referral: [facility] WPtel: [address] [id number]/12/2022Referral: General CardiologyReferralCompleted 1Referral: General PsychologistReferralClosed Instructions Comment [...] [facility]. Sister Jyotsna involved in his care cell# [phone] Guardian: Don (tapan met in person 09/01/21), now has Lexii (same group as don)Lab Schedule: * 10/06/2022
--- OUTSIDE RECORDS SUMMARY | 2022-11-09 23:32 | XMS_ITS | CCD ---
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 Name Role Phone Tapan Shirley PA-C Primary Care Provider Unavailabl e Tapan Shirley PA-C Chronic Care Management Unavaila ble Summary Purpose DataExchange Insurance Providers Payer name Policy type / Coverage type Covered republican ID Effective Begin Date Effective End Date Medicare ID Medicare Part B [id number] Unknown Unknown Medicaid ID Medicare Part B [id number] Unknown Unknown Family history Sister Brittany Suggs [...] [facility] 09/03/[address]: 2472048 Non-Smoker / No History of Smoking 09/02/[address]: 981329324 No Alcohol Consum ption 09/02/2020 Allergies, Adverse Reactions, Alerts Substance Reaction Codes Entered Date Inactivated Date Status LISINOPRIL RxNorm: 2852481No Inactive DateActiveMetformin NZtYnszbrj65/28/2020No Inactive DateActive Problems Condition Codes Effective Dates [...] deficiencyICD-10: E55.9 ICD-9: 268.912/2ActiveCoronary artery disease involving chenega coronary artery of chenega heart, angina presence unspecifiedICD-10: I25.10 ICD-9: 414.0111/ctiveShortness [...] vascular disease)ICD-10: I73.9 ICD-9: 443.909/2ActiveDepressionICD-10: F32.9 ICD-9: 27294/2ResolvedDVT (deep venous thrombosis)ICD-10: I82.409 ICD-9: 453.4009/2ResolvedEncounter for [...] L91.8 ICD-9: 701.911/1ActiveCallus of heelICD-10: L84 ICD-9: 35162/ctiveImpacted cerumen, left earICD-10: H61.22 ICD-9: 380.408/1ActiveContact with [...] Z20.828 ICD-9: V01.7902/esolvedHyperhidrosis of palmsICD-10: L74.512 ICD-9: 705.6308NnlhbqVdxchhaqQmjiinf07/28/2020ActiveDiabetes mellitus Type 8Pmvjytc49/28/2020ActiveAnemia in chronic kidney diseaseICD-10: D63.1 02/12/2020ResolvedHyperlipidemia, unspecifiedICD-10: E78.509Resolved Medications Medication Codes Instructions Start Date Stop Date Status Fill Instructions aripiprazole 15 mg tablet RxNorm: 003625 05/18 TAB (7.5MG) ORALLY DAILY (DX:MAJOR DEPRESSIVE DISORDER) 06/05/19 23 023 Inactive pregabalin 100 mg capsule RxNorm: 055666 1 Capsule(s) Oral QAM every morning 06/02/19 23 023 Inactive Banophen 50 mg capsule RxNorm: 6151677 Take 1 Capsule(s) Oral Q6H every 6 hours as needed 05/19/19 23 No Stop Date Active Novolog Flexpen U-100 Insulin aspart 100 unit/mL (3 mL) subcutaneous RxNorm: 4843144 Inject 10 Unit(s) Subcutaneous QHS every night at bedtime with nighttime snack 04/08/20 022 Inactive Novolog Flexpen U-100 Insulin aspart 100 unit/mL (3 mL) subcutaneous RxNorm: 2902951 Inject 42 Unit(s) Subcutaneous TID in addition to sliding scale 04/08/20 022 Inactive d/c 36u albuterol sulfate HFA 90 mcg/actuation aerosol inhaler RxNorm: 5406827 Take 2 Puff(s) Inhalation Q4H every four hours as needed as needed for SOB, cough, or wheezing 04/07/20 030 Active Banophen 50 mg capsule RxNorm: 0131259 Take 1 Capsule(s) Oral Q6H every 6 hours as needed 04/06/20 023 Inactive diphenhydramine 50 mg tablet RxNorm: 9522927 Take 1 Tablet(s) Oral Q6H every 6 hours as needed 04/06/20 022 Inactive diphenhydramine 50 mg tablet RxNorm: 6599738 1 Tablet(s) Oral Q6H every 6 hours as needed 04/06/20 022 Inactive Abilify 15 mg tablet RxNorm: 850396 1/2 Tablet(s) Oral QD 03/10/20 023 Inactive Shingrix (PF) 50 mcg/0.5 mL intramuscular suspension, kit RxNorm: 7306361 Administer 1/2 Milliliter(s) Intramuscular QD one time shingrix step 2 ( step 1 given 11/04/21) WITH needle - Nursing please administer upon arrival and once administered 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, medical service technician, 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, and lot# so we can update [facility] 02/18/20 22 022 Inactive dispense with needle Shingrix (PF) 50 mcg/0.5 mL intramuscular suspension, kit RxNorm: 4019783 Administer 1/2 Milliliter(s) Intramuscular QD one time shingrix step 2 ( step 1 given 11/04/21) WITH needle - Nursing please administer upon arrival and once administered 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, medical service technician, 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, and lot# so we can update [facility] 02/18/20 22 022 Inactive dispense with needle acetaminophen 500 mg tablet RxNorm: 770195 Take 1 Tablet(s) Oral TID 01/08/20 22 023 Active d/c PRN order Lyrica 150 mg capsule RxNorm: 621559 Take 1 Capsule(s) Oral QHS every night at bedtime 01/08/20 22 023 Inactive d/c 100mg dose polyethylene glycol 3350 17 gram/dose oral powder RxNorm: 755303 Take 17=1 capful Gram(s) Oral QD mix with 4-8oz of liquid 01/08/20 22 023 Active take this in addition to BID prn order Lyrica 100 mg capsule RxNorm: 454696 Take 1 Capsule(s) Oral QAM every morning 01/08/20 22 022 Inactive d/c 50mg dose Abilify 5 mg tablet RxNorm: 481634 Take 1 Tablet(s) Oral QD take 1 tab po QD #30 refill 5 dx: MDD 12/12/19 22 022 Inactive Abilify 5 mg tablet RxNorm: 859848 Take 1 Tablet(s) Oral QD take 1 tab po QD #30 refill 5 dx: MDD 12/12/19 22 022 Inactive chlorthalidone 25 mg tablet RxNorm: 641818 Take 1 Tablet(s) Oral QAM every morning 12/10/19 22 023 Active Novolog Flexpen U-100 Insulin aspart 100 unit/mL (3 mL) subcutaneous RxNorm: 3166499 Inject 42 Unit(s) Subcutaneous TID in addition to sliding scale 12/10/19 22 022 Inactive d/c 36u pregabalin 50 mg capsule RxNorm: 468500 Take 1 Capsule(s) Oral QAM every morning 11/12/19 22 022 Inactive tetanus-diphtheria toxoids-Td 2 Lf unit-2 Lf unit/0.5 mL IM suspension RxNorm: 139 Take 0.5 Miscellaneous Intramuscular 11/12/19 22 022 Inactive need tdap - nursing to administer upon arrival pregabalin 50 mg capsule RxNorm: 187070 Take 1 Capsule(s) Oral QAM every morning 10/16/19 22 022 Inactive pregabalin 50 mg capsule RxNorm: 032661 Take 1 Capsule(s) Oral QAM every morning 10/16/19 22 022 Inactive pregabalin 50 mg capsule RxNorm: 914325 1 Capsule(s) Oral QAM every morning 10/15/19 22 022 Inactive Shingrix (PF) 50 mcg/0.5 mL intramuscular suspension, kit RxNorm: 3583293 Administer 1/2 Milliliter(s) Intramuscular one time Nursing please administer upon arrival and once administered 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, medical service 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 10/09/19 22 022 Inactive shingrix step 1 Shingrix (PF) 50 mcg/0.5 mL intramuscular suspension, kit RxNorm: 7847203 Administer 1/2 Milliliter(s) Intramuscular one time Nursing please administer upon arrival and once administered 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, medical service 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 10/09/19 22 022 Inactive shingrix step 1 cholecalciferol (vitamin D3) 1,250 mcg (50,000 unit) capsule RxNorm: 855802 Take 1 Capsule(s) Oral QW once a [...] aspart 100 unit/mL (3 mL) subcutaneous RxNorm: 4976717 Inject 10 Unit(s) Subcutaneous QHS every night at bedtime with nighttime snack 10/08/19 22 11/23/2 022 Inactive Shingrix (PF) 50 mcg/0.5 mL intramuscular suspension, kit RxNorm: 8391578 ADMINISTER 2-DOSE SERIES PER CDC GUIDELINES 10/08/19 22 Active Shingrix (PF) 50 mcg/0.5 mL intramuscular suspension, kit RxNorm: 4686029 ADMINISTER 2-DOSE SERIES PER CDC GUIDELINES 10/08/19 22 Inactive Novolog Flexpen U-100 Insulin aspart 100 unit/mL (3 mL) subcutaneous RxNorm: 4726749 Inject 36 Unit(s) Subcutaneous TID in addition to sliding scale 10/08/19 22 Inactive Novofine Autocover 30 gauge x 1/3 needle RxNorm: Use 1 Miscellaneous UD as directed Use 1 needle as directed to administer insulin 5 times a day Dx:E11.42. 10/03/19 Inactive ok to substitute with any covered alternative pen needle benzoyl peroxide 10 % topical cleanser RxNorm: 411676 Apply 1 Application Topical QD apply to face, wash rinse and dry once daily (may change to QOD if drying) 08/19/19 022 Inactive (%covered by insurance) #60ml refill 11 dx: acne benzoyl peroxide 10 % topical cleanser RxNorm: 521912 Apply 1 Application Topical QD apply to face, wash rinse and dry once daily (may change to QOD if drying) 08/19/19 022 Inactive (%covered by insurance) #60ml refill 11 dx: acne benzoyl peroxide 10 % topical cleanser RxNorm: 375896 Apply 1 Application Topical QD apply to face, wash rinse and dry once daily (may change to QOD if drying) 08/19/19 22 022 Inactive (%covered by insurance) #60ml refill 11 dx: acne Lyrica 50 mg capsule RxNorm: 560724 Take 1 Capsule(s) Oral QAM every morning Take 1 capsule by mouth once daily 08/19/19 22 022 Inactive benzoyl peroxide 10 % topical cleanser RxNorm: 209534 Apply 1 Application Topical QD apply to face, wash rinse and dry once daily (may change to QOD if drying) 08/19/19 22 022 Inactive (%covered by insurance) #60ml refill 11 dx: acne Lyrica 100 mg capsule RxNorm: 999845 Take 1 Capsule(s) Oral QHS every night at bedtime Take 1 capsule by mouth once daily at bedtime 08/19/19 22 022 Inactive Lyrica 100 mg capsule RxNorm: 792910 Take 1 Capsule(s) Oral QHS every night at bedtime Take 1 capsule by mouth once daily at bedtime 08/16/19 22 022 Inactive Lyrica 50 mg capsule RxNorm: 707044 Take 1 Capsule(s) Oral QAM every morning Take 1 capsule by mouth once daily 08/16/19 22 022 Inactive Levemir FlexTouch U-100 Insulin 100 unit/mL (3 mL) subcutaneous pen RxNorm: 188630 Inject 86 Unit(s) Subcutaneous BID 08/05/19 22 022 Inactive d/c 83units BID Lyrica 100 mg capsule RxNorm: 196278 Take 1 Capsule(s) Oral QHS every night at bedtime Take 1 capsule by mouth once daily at bedtime 07/14/19 22 022 Inactive Lyrica 50 mg capsule RxNorm: 712818 Take 1 Capsule(s) Oral QAM every morning Take 1 capsule by mouth once daily 07/14/19 22 022 Inactive Levemir FlexTouch U-100 Insulin 100 unit/mL (3 mL) subcutaneous pen RxNorm: 575287 Inject 83 Unit(s) Subcutaneous BID 07/08/19 22 [...] 30 mg tablet,extended release 24 hr RxNorm: 777198 Take 1 Tablet(s) Oral QD 05/05/20 21 No Stop Date Active hydralazine 50 mg tablet RxNorm: 273776 Take 1 Tablet(s) Oral QID 05/05/20 21 022 Inactive venlafaxine ER 225 mg tablet,extended release 24 hr RxNorm: 788663 Take 1 Tablet(s) Oral QD 05/05/20 21 021 Inactive venlafaxine ER 225 mg tablet,extended release 24 hr RxNorm: 270817 Take 1 Tablet(s) Oral QD 05/05/20 21 022 Inactive hydralazine 50 mg tablet RxNorm: 243590 Take 1 Tablet(s) Oral QID 05/05/20 21 Inactive aspirin 81 mg tablet,delayed release RxNorm: 782273 Take 1 Tablet(s) Oral QD 03/31/20 21 022 Inactive Zetia 10 mg tablet RxNorm: 486546 Take 1 Tablet(s) Oral QD 03/31/20 21 022 Inactive Vitamin D2 1,250 mcg (50,000 unit) capsule RxNorm: 7964089 Take 1 Capsule(s) Oral QW once a week x 12 weeks 03/31/20 022 Inactive Vitamin D2 1,250 mcg (50,000 unit) capsule RxNorm: 5917535 Take 1 Capsule(s) Oral QW once a week 03/31/20 021 Inactive Zetia 10 mg tablet RxNorm: 426500 Take 1 Tablet(s) Oral QD 03/31/20 021 Inactive hydralazine 25 mg tablet RxNorm: 193107 Take 1 Tablet(s) Oral QID 03/31/20 021 Inactive hydralazine 25 mg tablet RxNorm: 207929 Take 1 Tablet(s) Oral QID 03/31/20 021 Inactive hydralazine 10 mg tablet RxNorm: 120269 Take 1 Tablet(s) Oral QID 03/03/20 021 Inactive cephalexin 500 mg tablet RxNorm: 456104 Take 1 Tablet(s) Oral QID 02/27/20 021 Inactive cephalexin 500 mg tablet RxNorm: 846429 Take 1 Tablet(s) Oral QID 02/27/20 021 Inactive lisinopril 40 mg tablet RxNorm: 177984 Take 1 Tablet(s) Oral QD 02/11/20 023 Inactive Eliquis 5 mg tablet RxNorm: 1447829 Take 1 Tablet(s) Oral BID 01/05/20 21 022 Inactive Eliquis 5 mg tablet RxNorm: 3087517 Take 2 Tablet(s) Oral QD 01/01/20 21 021 Inactive Lyrica 50 mg capsule RxNorm: 519096 Take 1 Capsule(s) Oral QAM every morning 12/24/19 21 021 Inactive Lyrica 100 mg capsule RxNorm: 629082 Take 1 Capsule(s) Oral QHS every night at bedtime 12/24/19 21 021 Inactive clotrimazole 1 % topical cream RxNorm: 646291 Apply to right foot and toes Topical BID 12/04/19 21 023 Inactive metoprolol succinate ER 200 mg tablet,extended release 24 hr RxNorm: 114049 Take 1 Tablet(s) Oral QD 12/04/19 21 023 Inactive ciprofloxacin 500 mg tablet RxNorm: 621464 Take 1 Tablet(s) Oral QD 11/30/19 21 021 Inactive DX ofloxacin otic drops Accu-Chek Guide test strips RxNorm: USE 1 TO CHECK GLUCOSE 4 TIMES DAILY AND NEEDED 11/15/19 21 023 Inactive Blood Glucose Test strips RxNorm: Use 1 Test Strip QID at PRN 11/05/19 21 023 Inactive E11.42 lisinopril 30 mg tablet RxNorm: 300874 Take 1 Tablet(s) Oral QD 10/30/19 021 Inactive lisinopril 20 mg tablet RxNorm: 104206 Take 1 Tablet(s) Oral QD 10/23/19 021 Inactive lisinopril 20 mg tablet RxNorm: 833666 Take 1 Tablet(s) Oral QD 10/23/19 21 021 Inactive lisinopril 10 mg tablet RxNorm: 851626 Take 1 Tablet(s) Oral QD 10/02/19 021 Inactive icosapent ethyl 1 gram capsule RxNorm: 2649590 Take 2 Capsule(s) (2 gm) Oral BID with meals 09/12/19 022 Inactive Okay to dispense one 2gm tab if you have that available. icosapent ethyl 1 gram capsule RxNorm: 9354429 Take 2 Capsule(s) Oral BID 09/12/19 21 021 Inactive Okay to dispense one 2gm tab if you have that available. amlodipine 10 mg tablet RxNorm: 515546 Take 1 Tablet(s) Oral QD 09/04/19 022 Inactive aspirin 81 mg tablet,delayed release RxNorm: 238126 Take 1 Tablet(s) Oral QD 09/04/19 21 021 Inactive Levemir FlexTouch U-100 Insulin 100 unit/mL (3 mL) subcutaneous pen RxNorm: 963791 Inject 150 Unit(s) Subcutaneous BID 09/04/19 022 Inactive venlafaxine ER 150 mg tablet,extended release 24 hr RxNorm: 645531 Take 1 Tablet(s) Oral QD 09/04/19 021 Inactive clotrimazole-betame thasone 1 %-0.05 % topical cream RxNorm: 590104 Apply to rash on red area on left abdomen/chest Topical BID 08/10/19 21 Inactive amlodipine 5 mg tablet RxNorm: 081197 Take 1 Tablet(s) Oral QD 07/31/19 Inactive cephalexin 500 mg tablet RxNorm: 071730 Take 1 Tablet(s) Oral BID BID - Twice Daily 07/31/19 Inactive Start 08/01/20 pantoprazole 40 mg tablet,delayed release RxNorm: 715637 Take 1 Tablet(s) Oral QAM every morning 07/08/19 022 Inactive senna 8.6 mg tablet RxNorm: 252150 Take 1 Tablet(s) Oral QD 07/08/19 022 Inactive pravastatin 80 mg tablet RxNorm: 335204 Take 1 Tablet(s) Oral QHS every night at bedtime 07/08/19 022 Inactive carbamazepine 200 mg tablet RxNorm: 351151 Take 1 Tablet(s) Oral BID 07/08/19 022 Inactive torsemide 20 mg tablet RxNorm: 674552 Take 1 Tablet(s) Oral QD 07/08/19 023 Inactive clopidogrel 75 mg tablet RxNorm: 849127 Take 1 Tablet(s) Oral QD 07/08/19 021 Inactive Blood Glucose Test strips RxNorm: Use 1 Test Strip QID at PRN 07/08/19 21 021 Inactive E11.42 Novolog Flexpen U-100 Insulin aspart 100 unit/mL (3 mL) subcutaneous RxNorm: 0951499 Administer per sliding scale Milliliter(s) Subcutaneous TID 151-200: 10 u; 201-250: 20 u; 251-300: 30 u; 301-350: 40 u; 351-400: 50 u. 07/08/19 21 022 Inactive lisinopril 5 mg tablet RxNorm: 712340 Take 1 Tablet(s) Oral QD 07/08/19 021 Inactive Novolog Flexpen U-100 Insulin aspart 100 unit/mL (3 mL) subcutaneous RxNorm: 3495286 Inject 85 Unit(s) Subcutaneous TID 07/08/19 022 Inactive clotrimazole 1 % topical cream RxNorm: 011013 Apply to bilateral groin areas Topical BID 07/08/19 21 022 Inactive metoprolol succinate ER 200 mg tablet,extended release 24 hr RxNorm: 291810 Take 1 Tablet(s) Oral QD 07/08/19 021 Inactive Vitamin D3 25 mcg (1,000 unit) tablet RxNorm: 789569 Take 1 Tablet(s) Oral QD 07/08/19 021 Inactive isosorbide dinitrate 30 mg tablet RxNorm: 184089 Take 1 Tablet(s) Oral QD 07/08/19 021 Inactive Levemir FlexTouch U-100 Insulin 100 unit/mL (3 mL) subcutaneous pen RxNorm: 187391 Inject 140 Unit(s) Subcutaneous BID 07/08/19 021 Inactive venlafaxine 75 mg tablet RxNorm: 650468 Take 1 Tablet(s) Oral QD 07/08/19 021 Inactive acetaminophen 500 mg tablet RxNorm: 413393 Take 1 Tablet(s) Oral TID as needed for headache 06/18/19 021 Inactive acetaminophen 500 mg tablet RxNorm: 483154 Take 1 Tablet(s) Oral TID as needed for headache 06/18/19 21 021 Inactive Lyrica 100 mg capsule RxNorm: 599470 Take 1 Capsule(s) Oral QHS every night at bedtime 06/11/19 021 Inactive Lyrica 50 mg capsule RxNorm: 361417 Take 1 Capsule(s) Oral QAM every morning 06/10/19 21 021 Inactive hydrocortisone 2.5 % topical cream RxNorm: 389292 Apply to bilateral groin creases Topical BID 12/30/20 20 021 Inactive clotrimazole 1 % topical cream RxNorm: 109194 Apply to bilateral groin areas Topical BID 05/15/20 20 Inactive Lyrica 50 mg capsule RxNorm: 117456 Take 1 Capsule(s) Oral QAM every morning 05/14/20 20 Inactive Lyrica 100 mg capsule RxNorm: 544160 Take 1 Capsule(s) Oral QHS every night [...] Inactive Nystop 100,000 unit/gram topical powder RxNorm: 493529 Apply to abd folds, under breasts and L side of groin Topical BID x 14 days, then BID PRN 04/08/20 20 021 Inactive dx: yeast dermatitis Lyrica 100 mg capsule RxNorm: 667737 Take 1 Capsule(s) Oral QHS every night at bedtime 03/13/20 20 Inactive Lyrica 50 mg capsule RxNorm: 022884 Take 1 Capsule(s) Oral QAM every morning 03/13/20 20 Inactive ketoconazole 2 % shampoo RxNorm: 663111 Apply Topical two times a week with showers 03/11/20 20 Inactive cholecalciferol (vitamin D3) 50 mcg (2,000 unit) tablet RxNorm: 393427 Take 1 Tablet(s) Oral QD 03/11/20 20 Inactive Zetia 10 mg tablet RxNorm: 338850 Take 1 Tablet(s) Oral QD 03/07/20 20 Inactive Zetia 10 mg tablet RxNorm: 130162 Take 1 Tablet(s) Oral QD 03/07/20 20 Inactive Lyrica 50 mg capsule RxNorm: 857834 Take 1 Capsule(s) Oral QAM every morning 02/15/20 20 Inactive Lyrica 100 mg capsule RxNorm: 882918 Take 1 Capsule(s) Oral QHS every night at bedtime 02/15/20 Inactive Lyrica 100 mg capsule RxNorm: 452195 Take 1 Capsule(s) Oral QHS every night at bedtime 02/15/20 20 Inactive Lyrica 50 mg capsule RxNorm: 182437 Take 1 Capsule(s) Oral QAM every morning 02/15/20 Inactive venlafaxine ER 75 mg capsule,extended release 24 hr RxNorm: 670687 Take 3 Capsule(s) Oral QD 06/12/2021 Activepolyethylene glycol 3350 17 gram/dose oral powderRxNorm: 011751Tnez 17=1 capful Gram(s) Oral BID as needed mix with 4-8oz of xwylog6306/12/2021ctive Levemir FlexTouch U-100 Insulin 100 unit/mL (3 mL) subcutaneous penRxNorm: 442187Rvxtpe 80 Unit(s) Subcutaneous BID07/14//Inactiveloperamide 2 mg capsuleRxNorm: 779388Tvuk 1 Capsule(s) Oral QID as fmrigi2706/12/2021ctive Novolog Flexpen U-100 Insulin aspart 100 unit/mL (3 mL) subcutaneousRxNorm: 4800563Kmdmrn 30 Unit(s) Subcutaneous TID with meals/Inactive Medication [...] Date Referral: [facility] WPtel: [address] , [address] [id number] USReferralRecords Zretuqdd50/08/2023Referral: [facility] WPtel: [address] [id number]/12/2022Referral: General CardiologyReferralCompleted 1Referral: General PsychologistReferralClosed Instructions Comment [...] Sister Jyotsna involved in his care cell# [phone] Guardian: Don (tapan met in person 09/01/21), now has Lexii (same group as don)Lab Schedule: * 10/06/2022
--- OUTSIDE RECORDS SUMMARY | 2022-11-09 23:35 | XMS_ITS | CCD ---
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 Laboratory Chief Name Role Phone Tapan Shirley PA-C Primary Care Provider Unavailabl e Tapan Shirley PA-C Chronic Care Management Unavaila ble Summary Purpose DataExchange Insurance Providers Payer name Policy type / Coverage type Covered republican ID Effective Begin Date Effective End Date Medicare ID Medicare Part B [id number] Unknown Unknown Medicaid ID Medicare Part B [id number] Unknown Unknown Family history Sister Brittany Suggs Diagnosis Age At Onset No Family Disease Entered N/A Runs in the family Diagnosis Age At Onset No Known Diseases N/A Sister Blanka Mcduffie Diagnosis Age At Onset No Family Disease Entered N/A Social History Social History Element Codes Description Effec tive Dates Marital status Unknown Single 10/07/2021 Living arrangements Unknown Correction 09/03/[address]: 4143819 Non-Smoker / No History of Smoking 09/02/[address]: 893680464 No Alcohol Consum ption 09/02/2020 Allergies, Adverse Reactions, Alerts Substance Reaction Codes Entered Date Inactivated Date Status LISINOPRIL RxNorm: 2756945No Inactive DateActiveMetformin HRwUsgmpmh35/28/2020No Inactive DateActive Problems Condition Codes Effective Dates Condition St atus High risk medication use ICD-10: Z79.899 ICD-9: V58.6902/ctiveMajor depression, recurrentICD-10: F33.9 ICD-9: 296.3002/ctiveCandidiasis, intertrigoICD-10: B37.2 ICD-9: 112.301/ctiveHyperlipidemia associated with type 2 diabetes mellitusICD-10: E11.69 ICD-9: 250.8001/ctiveOnychogryposisICD-10: L60.2 ICD-9: 703.801/ctiveStage 2 chronic 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ICD-10: E11.22 ICD-9: 250.4001/ctiveType 2 diabetes mellitus with diabetic polyneuropathy, with long-term current use of insulinICD-10: E11.42 ICD-9: 250.6001/ctiveHypertensive heart disease without heart failure ICD-10: I11.9 ICD-9: 402.9012/ctiveVitamin D deficiencyICD-10: E55.9 ICD-9: 268.912/ctiveCoronary artery disease involving [place] coronary artery of [place] heart, angina presence unspecifiedICD-10: I25.10 ICD-9: 414.0111/ctiveShortness [...] vascular disease)ICD-10: I73.9 ICD-9: 443.909/ctiveDepressionICD-10: F32.9 ICD-9: 80945/2ResolvedDVT (deep venous thrombosis)ICD-10: I82.409 ICD-9: 453.4009esolvedEncounter for immunizationICD-10: Z23 ICD-9: V03.89092ResolvedLong term (current) use of insulinICD-10: Z79.4 2ResolvedMuscular painICD-10: M79.10 ICD-9: 729.109/esolvedPain of right heelICD-10: M79.671 ICD-9: 729.509esolvedDandruff in [...] L91.8 ICD-9: 701.911/1ActiveCallus of heelICD-10: L84 ICD-9: 338211ActiveImpacted cerumen, left earICD-10: H61.22 ICD-9: 380.408/1ActiveContact with [...] Z20.828 ICD-9: V01.7902/esolvedHyperhidrosis of palmsICD-10: L74.512 ICD-9: 705.8518MazrvcAbhalfxrRcjxxnh05/28/2020ActiveDiabetes mellitus Type 5Fjpoaoy75/28/2020ActiveAnemia in chronic kidney diseaseICD-10: D63.1 02/12/2020ResolvedHyperlipidemia, unspecifiedICD-10: E78.Resolved Medications Medication Codes Instructions Start Date Stop Date Status Fill Instructions Diflucan 150 mg tablet RxNorm: 893013 Take 1 Tablet(s) Oral QD repeat on day 3 and 6 06/30/19 23 023 Inactive Accu-Chek Guide test strips RxNorm: Use 1 Test Strip QID Use 1 test strip to monitor blood glucose 4 times daily and as needed. Dx:E11.42. 06/23/19 23 023 Inactive ok to substitute with any covered alternative test strip dextromethorphan-gu aifenesin 10 mg-100 mg/5 mL oral liquid RxNorm: 595016 Take 10 Milliliter(s) Oral every 4 hours as needed for cough 06/19/19 023 Inactive dextromethorphan-gu aifenesin 10 mg-100 mg/5 mL oral liquid RxNorm: 629130 Take 10 Milliliter(s) Oral every 4 hours as needed for cough 06/19/19 023 Inactive Lyrica 150 mg capsule RxNorm: 615831 Take 1 Capsule(s) Oral QHS every night at bedtime 06/18/19 023 Inactive d/c 100mg dose aripiprazole 15 mg tablet RxNorm: 965719 05/18 TAB (7.5MG) ORALLY DAILY (DX:MAJOR DEPRESSIVE DISORDER) 06/05/19 023 Inactive pregabalin 100 mg capsule RxNorm: 184647 1 Capsule(s) Oral QAM every morning 06/02/19 023 Inactive Banophen 50 mg capsule RxNorm: 3478063 Take 1 Capsule(s) Oral Q6H every 6 hours as needed 05/19/19 23 No Stop Date Active Novolog Flexpen U-100 Insulin aspart 100 unit/mL (3 mL) subcutaneous RxNorm: 0019166 Inject 10 Unit(s) Subcutaneous QHS every night at bedtime with nighttime snack 04/08/20 022 Inactive Novolog Flexpen U-100 Insulin aspart 100 unit/mL (3 mL) subcutaneous RxNorm: 2616993 Inject 42 Unit(s) Subcutaneous TID in addition to sliding scale 04/08/20 022 Inactive d/c 36u albuterol sulfate HFA 90 mcg/actuation aerosol inhaler RxNorm: 1173251 Take 2 Puff(s) Inhalation Q4H every four hours as needed as needed for SOB, cough, or wheezing 04/07/20 030 Active Banophen 50 mg capsule RxNorm: 0702053 Take 1 Capsule(s) Oral Q6H every 6 hours as needed 04/06/20 023 Inactive diphenhydramine 50 mg tablet RxNorm: 5536382 Take 1 Tablet(s) Oral Q6H every 6 hours as needed 04/06/20 22 022 Inactive diphenhydramine 50 mg tablet RxNorm: 8517576 1 Tablet(s) Oral Q6H every 6 hours as needed 04/06/20 22 022 Inactive Abilify 15 mg tablet RxNorm: 325580 1/2 Tablet(s) Oral QD 03/10/20 22 023 Inactive Shingrix (PF) 50 mcg/0.5 mL intramuscular suspension, kit RxNorm: 8076467 Administer 1/2 Milliliter(s) Intramuscular QD one time shingrix step 2 ( step 1 given 11/04/21) WITH needle - Nursing please administer upon arrival and once administered post a bridge message with 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 of administration, ethnic 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, expiration date, and lot# so we can update [facility] 02/18/20 22 022 Inactive dispense with needle Shingrix (PF) 50 mcg/0.5 mL intramuscular suspension, kit RxNorm: 5294917 Administer 1/2 Milliliter(s) Intramuscular QD one time shingrix step 2 ( step 1 given 11/04/21) WITH needle - Nursing please administer upon arrival and once administered post a bridge message with date of administration, ethnic 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, expiration date, and lot# so we can update [facility]IC 02/18/20 22 022 Inactive dispense with needle acetaminophen 500 mg tablet RxNorm: 145325 Take 1 Tablet(s) Oral TID 01/08/20 22 023 Active d/c PRN order polyethylene glycol 3350 17 gram/dose oral powder RxNorm: 845644 Take 17=1 capful Gram(s) Oral QD mix with 4-8oz of liquid 01/08/20 22 023 Active take this in addition to BID prn order Lyrica 100 mg capsule RxNorm: 519326 Take 1 Capsule(s) Oral QAM every morning 01/08/20 22 022 Inactive d/c 50mg dose Lyrica 150 mg capsule RxNorm: 295239 Take 1 Capsule(s) Oral QHS every night at bedtime 01/08/20 22 023 Inactive d/c 100mg dose Abilify 5 mg tablet RxNorm: 181940 Take 1 Tablet(s) Oral QD take 1 tab po QD #30 refill 5 dx: MDD 12/12/19 22 022 Inactive Abilify 5 mg tablet RxNorm: 641514 Take 1 Tablet(s) Oral QD take 1 tab po QD #30 refill 5 dx: MDD 12/12/19 22 022 Inactive chlorthalidone 25 mg tablet RxNorm: 390560 Take 1 Tablet(s) Oral QAM every morning 12/10/19 22 023 Active Novolog Flexpen U-100 Insulin aspart 100 unit/mL (3 mL) subcutaneous RxNorm: 4548404 Inject 42 Unit(s) Subcutaneous TID in addition to sliding scale 12/10/19 22 022 Inactive d/c 36u pregabalin 50 mg capsule RxNorm: 922159 Take 1 Capsule(s) Oral QAM every morning 11/12/19 22 022 Inactive tetanus-diphtheria toxoids-Td 2 Lf unit-2 Lf unit/0.5 mL IM suspension RxNorm: 139 Take 0.5 Miscellaneous Intramuscular 11/12/19 22 022 Inactive need tdap - nursing to administer upon arrival pregabalin 50 mg capsule RxNorm: 484946 Take 1 Capsule(s) Oral QAM every morning 10/16/19 22 022 Inactive pregabalin 50 mg capsule RxNorm: 584878 Take 1 Capsule(s) Oral QAM every morning 10/16/19 22 022 Inactive pregabalin 50 mg capsule RxNorm: 945655 1 Capsule(s) Oral QAM every morning 10/15/19 22 022 Inactive Shingrix (PF) 50 mcg/0.5 mL intramuscular suspension, kit RxNorm: 4408130 Administer 1/2 Milliliter(s) Intramuscular one time Nursing please administer upon arrival and once administered post a bridge message with date of administration, ethnic 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, 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 10/09/19 22 022 Inactive shingrix step 1 Shingrix (PF) 50 mcg/0.5 mL intramuscular suspension, kit RxNorm: 3174079 Administer 1/2 Milliliter(s) Intramuscular one time Nursing please administer upon arrival and once administered post a bridge message with date of administration, ethnic 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, 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 10/09/19 22 022 Inactive shingrix step 1 cholecalciferol (vitamin D3) 1,250 mcg (50,000 unit) capsule RxNorm: 443252 Take 1 Capsule(s) Oral QW once a [...] aspart 100 unit/mL (3 mL) subcutaneous RxNorm: 1452232 Inject 10 Unit(s) Subcutaneous QHS every night at bedtime with nighttime snack 10/08/19 22 Inactive Shingrix (PF) 50 mcg/0.5 mL intramuscular suspension, kit RxNorm: 5910787 ADMINISTER 2-DOSE SERIES PER CDC GUIDELINES 10/08/19 22 022 Active Shingrix (PF) 50 mcg/0.5 mL intramuscular suspension, kit RxNorm: 2623139 ADMINISTER 2-DOSE SERIES PER CDC GUIDELINES 10/08/19 22 Inactive Novolog Flexpen U-100 Insulin aspart 100 unit/mL (3 mL) subcutaneous RxNorm: 5925074 Inject 36 Unit(s) Subcutaneous TID in addition to sliding scale 10/08/19 22 Inactive Novofine Autocover 30 gauge x 1/3 needle RxNorm: Use 1 Miscellaneous UD as directed Use 1 needle as directed to administer insulin 5 times a day Dx:E11.42. 10/03/19 22 Inactive ok to substitute with any covered alternative pen needle benzoyl peroxide 10 % topical cleanser RxNorm: 406299 Apply 1 Application Topical QD apply to face, wash rinse and dry once daily (may change to QOD if drying) 08/19/19 022 Inactive (%covered by insurance) #60ml refill 11 dx: acne benzoyl peroxide 10 % topical cleanser RxNorm: 532618 Apply 1 Application Topical QD apply to face, wash rinse and dry once daily (may change to QOD if drying) 08/19/19 22 022 Inactive (%covered by insurance) #60ml refill 11 dx: acne benzoyl peroxide 10 % topical cleanser RxNorm: 951198 Apply 1 Application Topical QD apply to face, wash rinse and dry once daily (may change to QOD if drying) 08/19/19 22 022 Inactive (%covered by insurance) #60ml refill 11 dx: acne Lyrica 50 mg capsule RxNorm: 565858 Take 1 Capsule(s) Oral QAM every morning Take 1 capsule by mouth once daily 08/19/19 22 022 Inactive benzoyl peroxide 10 % topical cleanser RxNorm: 359440 Apply 1 Application Topical QD apply to face, wash rinse and dry once daily (may change to QOD if drying) 08/19/19 022 Inactive (%covered by insurance) #60ml refill 11 dx: acne Lyrica 100 mg capsule RxNorm: 734172 Take 1 Capsule(s) Oral QHS every night at bedtime Take 1 capsule by mouth once daily at bedtime 08/19/19 22 022 Inactive Lyrica 100 mg capsule RxNorm: 299688 Take 1 Capsule(s) Oral QHS every night at bedtime Take 1 capsule by mouth once daily at bedtime 08/16/19 022 Inactive Lyrica 50 mg capsule RxNorm: 009255 Take 1 Capsule(s) Oral QAM every morning Take 1 capsule by mouth once daily 08/16/19 022 Inactive Levemir FlexTouch U-100 Insulin 100 unit/mL (3 mL) subcutaneous pen RxNorm: 659324 Inject 86 Unit(s) Subcutaneous BID 08/05/19 22 022 Inactive d/c 83units BID Lyrica 100 mg capsule RxNorm: 510596 Take 1 Capsule(s) Oral QHS every night at bedtime Take 1 capsule by mouth once daily at bedtime 07/14/19 22 Inactive Lyrica 50 mg capsule RxNorm: 227947 Take 1 Capsule(s) Oral QAM every morning Take 1 capsule by mouth once daily 07/14/19 22 Inactive Levemir FlexTouch U-100 Insulin 100 unit/mL (3 mL) subcutaneous pen RxNorm: 012100 Inject 83 Unit(s) Subcutaneous BID 07/08/19 22 [...] 30 mg tablet,extended release 24 hr RxNorm: 151602 Take 1 Tablet(s) Oral QD 05/05/20 No Stop Date Active hydralazine 50 mg tablet RxNorm: 295041 Take 1 Tablet(s) Oral QID 05/05/20 Inactive venlafaxine ER 225 mg tablet,extended release 24 hr RxNorm: 906389 Take 1 Tablet(s) Oral QD 05/05/20 Inactive venlafaxine ER 225 mg tablet,extended release 24 hr RxNorm: 637858 Take 1 Tablet(s) Oral QD 05/05/20 022 Inactive hydralazine 50 mg tablet RxNorm: 274914 Take 1 Tablet(s) Oral QID 05/05/20 Inactive aspirin 81 mg tablet,delayed release RxNorm: 850150 Take 1 Tablet(s) Oral QD 03/31/20 Inactive Zetia 10 mg tablet RxNorm: 410623 Take 1 Tablet(s) Oral QD 03/31/20 Inactive Vitamin D2 1,250 mcg (50,000 unit) capsule RxNorm: 5188081 Take 1 Capsule(s) Oral QW once a week x 12 weeks 03/31/20 Inactive Vitamin D2 1,250 mcg (50,000 unit) capsule RxNorm: 9464875 Take 1 Capsule(s) Oral QW once a week 03/31/20 Inactive Zetia 10 mg tablet RxNorm: 023837 Take 1 Tablet(s) Oral QD 03/31/20 Inactive hydralazine 25 mg tablet RxNorm: 832242 Take 1 Tablet(s) Oral QID 03/31/20 Inactive hydralazine 25 mg tablet RxNorm: 661843 Take 1 Tablet(s) Oral QID 03/31/20 Inactive hydralazine 10 mg tablet RxNorm: 415921 Take 1 Tablet(s) Oral QID 03/03/20 Inactive cephalexin 500 mg tablet RxNorm: 250736 Take 1 Tablet(s) Oral QID 02/27/20 21 021 Inactive cephalexin 500 mg tablet RxNorm: 395606 Take 1 Tablet(s) Oral QID 02/27/20 021 Inactive lisinopril 40 mg tablet RxNorm: 364487 Take 1 Tablet(s) Oral QD 02/11/20 023 Inactive Eliquis 5 mg tablet RxNorm: 8135479 Take 1 Tablet(s) Oral BID 01/05/20 21 022 Inactive Eliquis 5 mg tablet RxNorm: 4801216 Take 2 Tablet(s) Oral QD 01/01/20 21 021 Inactive Lyrica 50 mg capsule RxNorm: 910481 Take 1 Capsule(s) Oral QAM every morning 12/24/19 21 021 Inactive Lyrica 100 mg capsule RxNorm: 107992 Take 1 Capsule(s) Oral QHS every night at bedtime 12/24/19 021 Inactive clotrimazole 1 % topical cream RxNorm: 432802 Apply to right foot and toes Topical BID 12/04/19 21 023 Inactive metoprolol succinate ER 200 mg tablet,extended release 24 hr RxNorm: 023809 Take 1 Tablet(s) Oral QD 12/04/19 023 Inactive ciprofloxacin 500 mg tablet RxNorm: 338585 Take 1 Tablet(s) Oral QD 11/30/19 21 021 Inactive DX ofloxacin otic drops Accu-Chek Guide test strips RxNorm: USE 1 TO CHECK GLUCOSE 4 TIMES DAILY AND NEEDED 11/15/19 21 023 Inactive Blood Glucose Test strips RxNorm: Use 1 Test Strip QID at PRN 11/05/19 21 023 Inactive E11.42 lisinopril 30 mg tablet RxNorm: 793381 Take 1 Tablet(s) Oral QD 10/30/19 21 021 Inactive lisinopril 20 mg tablet RxNorm: 988818 Take 1 Tablet(s) Oral QD 10/23/19 21 021 Inactive lisinopril 20 mg tablet RxNorm: 496466 Take 1 Tablet(s) Oral QD 10/23/19 21 021 Inactive lisinopril 10 mg tablet RxNorm: 226771 Take 1 Tablet(s) Oral QD 10/02/19 21 021 Inactive icosapent ethyl 1 gram capsule RxNorm: 5145129 Take 2 Capsule(s) (2 gm) Oral BID with meals 09/12/19 Inactive Okay to dispense one 2gm tab if you have that available. icosapent ethyl 1 gram capsule RxNorm: 3745902 Take 2 Capsule(s) Oral BID 09/12/19 021 Inactive Okay to dispense one 2gm tab if you have that available. amlodipine 10 mg tablet RxNorm: 169938 Take 1 Tablet(s) Oral QD 09/04/19 Inactive aspirin 81 mg tablet,delayed release RxNorm: 497914 Take 1 Tablet(s) Oral QD 09/04/19 Inactive Levemir FlexTouch U-100 Insulin 100 unit/mL (3 mL) subcutaneous pen RxNorm: 238231 Inject 150 Unit(s) Subcutaneous BID 09/04/19 21 Inactive venlafaxine ER 150 mg tablet,extended release 24 hr RxNorm: 247404 Take 1 Tablet(s) Oral QD 09/04/19 Inactive clotrimazole-betame thasone 1 %-0.05 % topical cream RxNorm: 733541 Apply to rash on red area on left abdomen/chest Topical BID 08/10/19 21 021 Inactive amlodipine 5 mg tablet RxNorm: 783800 Take 1 Tablet(s) Oral QD 07/31/19 21 Inactive cephalexin 500 mg tablet RxNorm: 293083 Take 1 Tablet(s) Oral BID BID - Twice Daily 07/31/19 21 021 Inactive Start 08/01/20 pantoprazole 40 mg tablet,delayed release RxNorm: 877873 Take 1 Tablet(s) Oral QAM every morning 07/08/19 21 022 Inactive senna 8.6 mg tablet RxNorm: 698019 Take 1 Tablet(s) Oral QD 07/08/19 022 Inactive pravastatin 80 mg tablet RxNorm: 016411 Take 1 Tablet(s) Oral QHS every night at bedtime 07/08/19 Inactive carbamazepine 200 mg tablet RxNorm: 070268 Take 1 Tablet(s) Oral BID 07/08/19 21 022 Inactive torsemide 20 mg tablet RxNorm: 631453 Take 1 Tablet(s) Oral QD 07/08/19 21 023 Inactive clopidogrel 75 mg tablet RxNorm: 063646 Take 1 Tablet(s) Oral QD 07/08/19 21 021 Inactive Blood Glucose Test strips RxNorm: Use 1 Test Strip QID at PRN 07/08/19 Inactive E11.42 Novolog Flexpen U-100 Insulin aspart 100 unit/mL (3 mL) subcutaneous RxNorm: 6264925 Administer per sliding scale Milliliter(s) Subcutaneous TID 151-200: 10 u; 201-250: 20 u; 251-300: 30 u; 301-350: 40 u; 351-400: 50 u. 07/08/19 21 022 Inactive lisinopril 5 mg tablet RxNorm: 513674 Take 1 Tablet(s) Oral QD 07/08/19 021 Inactive Novolog Flexpen U-100 Insulin aspart 100 unit/mL (3 mL) subcutaneous RxNorm: 4518789 Inject 85 Unit(s) Subcutaneous TID 07/08/19 022 Inactive clotrimazole 1 % topical cream RxNorm: 117218 Apply to bilateral groin areas Topical BID 07/08/19 21 022 Inactive metoprolol succinate ER 200 mg tablet,extended release 24 hr RxNorm: 648403 Take 1 Tablet(s) Oral QD 07/08/19 Inactive Vitamin D3 25 mcg (1,000 unit) tablet RxNorm: 651873 Take 1 Tablet(s) Oral QD 07/08/19 21 021 Inactive isosorbide dinitrate 30 mg tablet RxNorm: 367435 Take 1 Tablet(s) Oral QD 02/22/ 021 Inactive Levemir FlexTouch U-100 Insulin 100 unit/mL (3 mL) subcutaneous pen RxNorm: 304622 Inject 140 Unit(s) Subcutaneous BID 07/08/19 Inactive venlafaxine 75 mg tablet RxNorm: 876988 Take 1 Tablet(s) Oral QD 07/08/19 21 021 Inactive acetaminophen 500 mg tablet RxNorm: 985033 Take 1 Tablet(s) Oral TID as needed for headache 06/18/19 21 Inactive acetaminophen 500 mg tablet RxNorm: 213196 Take 1 Tablet(s) Oral TID as needed for headache 06/18/19 21 021 Inactive Lyrica 100 mg capsule RxNorm: 753608 Take 1 Capsule(s) Oral QHS every night at bedtime 06/11/19 21 021 Inactive Lyrica 50 mg capsule RxNorm: 443322 Take 1 Capsule(s) Oral QAM every morning 06/10/19 21 021 Inactive hydrocortisone 2.5 % topical cream RxNorm: 319520 Apply to bilateral groin creases Topical BID 05/15/20 20 021 Inactive clotrimazole 1 % topical cream RxNorm: 071013 Apply to bilateral groin areas Topical BID 05/15/20 20 021 Inactive Lyrica 50 mg capsule RxNorm: 669163 Take 1 Capsule(s) Oral QAM every morning 05/14/20 20 020 Inactive Lyrica 100 mg capsule RxNorm: 663493 Take 1 Capsule(s) Oral QHS every night [...] Inactive Nystop 100,000 unit/gram topical powder RxNorm: 965722 Apply to abd folds, under breasts and L side of groin Topical BID x 14 days, then BID PRN 04/08/20 20 Inactive dx: yeast dermatitis Lyrica 100 mg capsule RxNorm: 304851 Take 1 Capsule(s) Oral QHS every night at bedtime 03/13/20 20 Inactive Lyrica 50 mg capsule RxNorm: 079368 Take 1 Capsule(s) Oral QAM every morning 03/13/20 20 Inactive ketoconazole 2 % shampoo RxNorm: 925649 Apply Topical two times a week with showers 03/11/20 20 Inactive cholecalciferol (vitamin D3) 50 mcg (2,000 unit) tablet RxNorm: 261869 Take 1 Tablet(s) Oral QD 03/11/20 20 Inactive Zetia 10 mg tablet RxNorm: 866748 Take 1 Tablet(s) Oral QD 03/07/20 20 021 Inactive Zetia 10 mg tablet RxNorm: 288529 Take 1 Tablet(s) Oral QD 03/07/20 20 Inactive Lyrica 50 mg capsule RxNorm: 984009 Take 1 Capsule(s) Oral QAM every morning 02/15/20 20 Inactive Lyrica 100 mg capsule RxNorm: 439194 Take 1 Capsule(s) Oral QHS every night at bedtime 02/15/20 20 Inactive Lyrica 100 mg capsule RxNorm: 214478 Take 1 Capsule(s) Oral QHS every night at bedtime 02/15/20 20 Inactive Lyrica 50 mg capsule RxNorm: 674854 Take 1 Capsule(s) Oral QAM every morning 02/15/20 20 10/01/2 020 Inactive venlafaxine ER 75 mg capsule,extended release 24 hr RxNorm: 570635 Take 3 Capsule(s) Oral QD 06/12/2021 Activepolyethylene glycol 3350 17 gram/dose oral powderRxNorm: 990694Yivk 17=1 capful Gram(s) Oral BID as needed mix with 4-8oz of lvpeaa9006/12/2021ctive Levemir FlexTouch U-100 Insulin 100 unit/mL (3 mL) subcutaneous penRxNorm: 536388Ntjpda 80 Unit(s) Subcutaneous BID07/14//Inactiveloperamide 2 mg capsuleRxNorm: 530440Zkdt 1 Capsule(s) Oral QID as mrjraj6606/12/2021ctive Novolog Flexpen U-100 Insulin aspart 100 unit/mL (3 mL) subcutaneousRxNorm: 6912150Inhjfh 30 Unit(s) Subcutaneous TID with meals/Inactive Medication [...] – [facility] WPtel: [address], [address] [id number] USReferralRecords Pewgzgxv64/08/2023Referral: [facility] WPtel: [address] [id number] SBScgktvieDrtlyorhu81/12/2022Referral: General CardiologyReferralCompleted 1Referral: General PsychologistReferralClosed Instructions Comment Date Leonid is a Male being seen living at [facility]. Initial BPS visit 01/2020. PMHx including DMII, CAD w/ 5 stents, Depression, Seizure Disorder and CKD stage 3. He moved into [facility] in 12/2019 but [facility]21 [facility]. Sister Jyotsna involved in his care cell# [phone] Guardian: Don (tapan met in person 09/01/21), now has Lexii (same group as don)Lab Schedule: * 10/06/2022
--- OUTSIDE RECORDS SUMMARY | 2022-11-09 23:35 | XMS_ITS | CCD ---
Author Name Tapan Shirley PA-C Address [address] [facility] [address] [place] [address] Phone Organization [facility] Phone Care Team Providers Care Elevator Repairer Helper Name Role Phone Tapan Shirley PA-C Primary Care Provider Unavailabl e Tapan Shirley PA-C Chronic Care Management Unavaila ble Summary Purpose DataExchange Insurance Providers Payer name Policy type / Coverage type Covered democrat ID Effective Begin Date Effective End Date [place] B [id number] Unknown Unknown Medicaid [place] B [id number] Unknown Unknown Family history Sister Brittany Suggs Diagnosis Age At Onset No Family Disease Entered N/A Runs in the family Diagnosis Age At Onset No Known Diseases N/A Sister Blanka Mcduffie Diagnosis Age At Onset No Family Disease Entered N/A Social History Social History Element Codes Description Effec tive Dates Marital status Unknown Single 10/07/2021 Living arrangements Unknown Mcfp 09/03/[address]: 4441481 Non-Smoker / No History of Smoking 09/02/[address]: 874988576 No Alcohol Consum ption 09/02/2020 Allergies, Adverse Reactions, Alerts Substance Reaction Codes Entered Date Inactivated Date Status LISINOPRIL RxNorm: 7092342No Inactive DateActiveMetformin ABdXmjcyaa50/28/2020No Inactive DateActive Problems Condition Codes Effective Dates Condition St atus Candidiasis, intertrigo ICD-10: B37.2 ICD-9: 112.302ctiveHyperlipidemia associated with type 2 diabetes mellitusICD-10: E11.69 ICD-9: 250.8002ctiveHypertensive heart disease without heart failure ICD-10: I11.9 ICD-9: 402.90007/14/2022ctivePre-op evaluationICD-10: Z01.818 ICD-9: V72.8402/ctiveStage 2 chronic 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ICD-10: E11.22 ICD-9: 250.4002/ctiveType 2 diabetes mellitus with diabetic polyneuropathy, with long-term current use of insulinICD-10: E11.42 ICD-9: 250.6002/ctiveHigh risk medication useICD-10: Z79.899 ICD-9: V58.6902/ctiveMajor depression, recurrentICD-10: F33.9 ICD-9: 296.3002/ctiveOnychogryposisICD-10: L60.2 ICD-9: 703.801/ctiveVitamin D deficiencyICD-10: E55.9 ICD-9: 268.912/ctiveCoronary artery disease involving [place] coronary artery of [place] heart, angina presence unspecifiedICD-10: I25.10 ICD-9: 414.0111/ctiveShortness of breathICD-10: R06.02 ICD-9: 786.0511/ctiveSeizure disorderICD-10: G40.909 ICD-9: 345.9011/ctiveCellulitisICD-10: L03.90 ICD-9: 682.910/ctiveRecurrent major depressive disorder, in partial remissionICD-10: F33.41 ICD-9: 296.3510/ctiveReducible umbilical herniaICD-10: K42.9 ICD-9: 553.110/ctiveBMI 60.0-69.9, adultICD-10: Z68.44 ICD-9: V85.4410/ctiveInappropriate sexual behaviorICD-10: Z72.89 ICD-9: 312.8910/ctiveHx of deep venous thrombosisICD-10: Z86.718 ICD-9: V12.5109/ctiveHypercoagulable stateICD-10: D68.59 ICD-9: 289.8109/2ActiveParaparesis of both lower limbsICD-10: G82.20 ICD-9: 344.109/2ActivePVD (peripheral vascular disease)ICD-10: I73.9 ICD-9: 443.909/2ActiveDepressionICD-10: F32.9 ICD-9: 80715/2ResolvedDVT (deep venous thrombosis)ICD-10: I82.409 ICD-9: 453.4009/2ResolvedEncounter for [...] footICD-10: S98.131A ICD-9: 895.004/2ActiveLearning disabilityICD-10: F81.9 ICD-9: 315.212/ctiveSkin tagICD-10: L91.8 ICD-9: 701.911/ctiveCallus of heelICD-10: L84 ICD-9: 96810/ctiveImpacted cerumen, left earICD-10: H61.22 ICD-9: 380.408/ctiveContact with [...] Z20.828 ICD-9: V01.7902/esolvedHyperhidrosis of palmsICD-10: L74.512 ICD-9: 705.1121PxddvuEknlnxmtFaeaxcf28/28/2020ActiveDiabetes mellitus Type 2Sjxvpqv14/28/2020ActiveAnemia in chronic kidney diseaseICD-10: D63.1 02/12/2020ResolvedHyperlipidemia, unspecifiedICD-10: E78.509Resolved Medications Medication Codes Instructions Start Date Stop Date Status Fill Instructions gatifloxacin 0.5 % eye drops RxNorm: 426738 Instill 1 Drop(s) as directed TID Instill 1 drop in to affected eye(s) starting 1 day prior to surgery and continue until gone (do not exceed 4 weeks). 07/13/19 23 023 Inactive carvedilol 25 mg tablet RxNorm: 596902 2 Tablet(s) Oral BID 07/13/19 23 023 Inactive Humulin R Regular U-100 Insulin 100 unit/mL injection solution RxNorm: 516177 85 Unit(s) Injection TID 07/13/19 23 023 Inactive ketorolac 0.5 % eye drops RxNorm: 092704 Instill 1 Drop(s) as directed QID Instill 1 drop into affected eye(s) 4 times daily starting 1 day prior to surgery and continue until gone (do not exceed 4 weeks). 07/13/19 23 023 Inactive Diflucan 150 mg tablet RxNorm: 964018 Take 1 Tablet(s) Oral QD repeat on day 3 and 6 06/30/19 23 023 Inactive Accu-Chek Guide test strips RxNorm: Use 1 Test Strip QID Use 1 test strip to monitor blood glucose 4 times daily and as needed. Dx:E11.42. 06/23/19 23 023 Inactive ok to substitute with any covered alternative test strip dextromethorphan-gu aifenesin 10 mg-100 mg/5 mL oral liquid RxNorm: 553532 Take 10 Milliliter(s) Oral every 4 hours as needed for cough 06/19/19 023 Inactive dextromethorphan-gu aifenesin 10 mg-100 mg/5 mL oral liquid RxNorm: 423324 Take 10 Milliliter(s) Oral every 4 hours as needed for cough 06/19/19 23 023 Inactive Lyrica 150 mg capsule RxNorm: 860764 Take 1 Capsule(s) Oral QHS every night at bedtime 06/18/19 23 023 Inactive d/c 100mg dose aripiprazole 15 mg tablet RxNorm: 085772 1/2 TAB (7.5MG) ORALLY DAILY (DX:MAJOR DEPRESSIVE DISORDER) 06/05/19 23 023 Inactive pregabalin 100 mg capsule RxNorm: 109932 1 Capsule(s) Oral QAM every morning 06/02/19 23 023 Inactive Banophen 50 mg capsule RxNorm: 3718082 Take 1 Capsule(s) Oral Q6H every 6 hours as needed 05/19/19 No Stop Date Active Novolog Flexpen U-100 Insulin aspart 100 unit/mL (3 mL) subcutaneous RxNorm: 7342071 Inject 10 Unit(s) Subcutaneous QHS every night at bedtime with nighttime snack 04/08/20 022 Inactive Novolog Flexpen U-100 Insulin aspart 100 unit/mL (3 mL) subcutaneous RxNorm: 6306702 Inject 42 Unit(s) Subcutaneous TID in addition to sliding scale 04/08/20 Inactive d/c 36u albuterol sulfate HFA 90 mcg/actuation aerosol inhaler RxNorm: 5664794 Take 2 Puff(s) Inhalation Q4H every four hours as needed as needed for SOB, cough, or wheezing 04/07/20 030 Active Banophen 50 mg capsule RxNorm: 8426265 Take 1 Capsule(s) Oral Q6H every 6 hours as needed 04/06/20 023 Inactive diphenhydramine 50 mg tablet RxNorm: 0027279 Take 1 Tablet(s) Oral Q6H every 6 hours as needed 04/06/20 022 Inactive diphenhydramine 50 mg tablet RxNorm: 0880775 1 Tablet(s) Oral Q6H every 6 hours as needed 04/06/20 022 Inactive Abilify 15 mg tablet RxNorm: 270251 1/2 Tablet(s) Oral QD 03/10/20 22 023 Inactive Shingrix (PF) 50 mcg/0.5 mL intramuscular suspension, kit RxNorm: 9432378 Administer 1/2 Milliliter(s) Intramuscular QD one time shingrix step 2 ( step 1 given 11/04/21) WITH needle - Nursing please administer upon arrival and once administered post a bridge message with date of administration, echometer engineer, expiration date, and lot# so we can update [facility]IC 02/18/20 22 022 Inactive dispense with needle Shingrix (PF) 50 mcg/0.5 mL intramuscular suspension, kit RxNorm: 9985245 Administer 1/2 Milliliter(s) Intramuscular QD one time shingrix step 2 ( step 1 given 11/04/21) WITH needle - Nursing please administer upon arrival and once administered post a bridge message with date of administration, echometer engineer, expiration date, and lot# so we can update MIIC 02/18/20 22 022 Inactive dispense with needle acetaminophen 500 mg tablet RxNorm: 791935 Take 1 Tablet(s) Oral TID 01/08/20 22 023 Active d/c PRN order polyethylene glycol 3350 17 gram/dose oral powder RxNorm: 657515 Take 17=1 capful Gram(s) Oral QD mix with 4-8oz of liquid 01/08/20 22 Active take this in addition to BID prn order Lyrica 100 mg capsule RxNorm: 417132 Take 1 Capsule(s) Oral QAM every morning 01/08/20 22 022 Inactive d/c 50mg dose Lyrica 150 mg capsule RxNorm: 466675 Take 1 Capsule(s) Oral QHS every night at bedtime 01/08/20 22 023 Inactive d/c 100mg dose Abilify 5 mg tablet RxNorm: 894992 Take 1 Tablet(s) Oral QD take 1 tab po QD #30 refill 5 dx: MDD 12/12/19 22 022 Inactive Abilify 5 mg tablet RxNorm: 362874 Take 1 Tablet(s) Oral QD take 1 tab po QD #30 refill 5 dx: MDD 12/12/19 22 022 Inactive chlorthalidone 25 mg tablet RxNorm: 703304 Take 1 Tablet(s) Oral QAM every morning 12/10/19 22 023 Active Novolog Flexpen U-100 Insulin aspart 100 unit/mL (3 mL) subcutaneous RxNorm: 0973715 Inject 42 Unit(s) Subcutaneous TID in addition to sliding scale 12/10/19 22 022 Inactive d/c 36u pregabalin 50 mg capsule RxNorm: 521872 Take 1 Capsule(s) Oral QAM every morning 11/12/19 22 022 Inactive tetanus-diphtheria toxoids-Td 2 Lf unit-2 Lf unit/0.5 mL IM suspension RxNorm: 139 Take 0.5 Miscellaneous Intramuscular 11/12/19 22 022 Inactive need tdap - nursing to administer upon arrival pregabalin 50 mg capsule RxNorm: 577630 Take 1 Capsule(s) Oral QAM every morning 10/16/19 22 022 Inactive pregabalin 50 mg capsule RxNorm: 733993 Take 1 Capsule(s) Oral QAM every morning 10/16/19 22 022 Inactive pregabalin 50 mg capsule RxNorm: 780993 1 Capsule(s) Oral QAM every morning 10/15/19 22 022 Inactive Shingrix (PF) 50 mcg/0.5 mL intramuscular suspension, kit RxNorm: 8245634 Administer 1/2 Milliliter(s) Intramuscular one time Nursing please administer upon arrival and once administered post a bridge message with date of administration, echometer engineer, 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 10/09/19 22 022 Inactive shingrix step 1 Shingrix (PF) 50 mcg/0.5 mL intramuscular suspension, kit RxNorm: 0222647 Administer 1/2 Milliliter(s) Intramuscular one time Nursing please administer upon arrival and once administered post a bridge message with date of administration, echometer engineer, 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 10/09/19 22 022 Inactive shingrix step 1 cholecalciferol (vitamin D3) 1,250 mcg (50,000 unit) capsule RxNorm: 501841 Take 1 Capsule(s) Oral QW once a [...] aspart 100 unit/mL (3 mL) subcutaneous RxNorm: 9584754 Inject 10 Unit(s) Subcutaneous QHS every night at bedtime with nighttime snack 10/08/19 22 Inactive Shingrix (PF) 50 mcg/0.5 mL intramuscular suspension, kit RxNorm: 8510091 ADMINISTER 2-DOSE SERIES PER CDC GUIDELINES 10/08/19 22 Active Shingrix (PF) 50 mcg/0.5 mL intramuscular suspension, kit RxNorm: 3332455 ADMINISTER 2-DOSE SERIES PER CDC GUIDELINES 10/08/19 22 Inactive Novolog Flexpen U-100 Insulin aspart 100 unit/mL (3 mL) subcutaneous RxNorm: 0263681 Inject 36 Unit(s) Subcutaneous TID in addition to sliding scale 10/08/19 Inactive Novofine Autocover 30 gauge x 1/3 needle RxNorm: Use 1 Miscellaneous UD as directed Use 1 needle as directed to administer insulin 5 times a day Dx:E11.42. 10/03/19 Inactive ok to substitute with any covered alternative pen needle benzoyl peroxide 10 % topical cleanser RxNorm: 385707 Apply 1 Application Topical QD apply to face, wash rinse and dry once daily (may change to QOD if drying) 08/19/19 022 Inactive (%covered by insurance) #60ml refill 11 dx: acne benzoyl peroxide 10 % topical cleanser RxNorm: 138975 Apply 1 Application Topical QD apply to face, wash rinse and dry once daily (may change to QOD if drying) 08/19/19 22 022 Inactive (%covered by insurance) #60ml refill 11 dx: acne benzoyl peroxide 10 % topical cleanser RxNorm: 149459 Apply 1 Application Topical QD apply to face, wash rinse and dry once daily (may change to QOD if drying) 08/19/19 22 022 Inactive (%covered by insurance) #60ml refill 11 dx: acne Lyrica 50 mg capsule RxNorm: 925481 Take 1 Capsule(s) Oral QAM every morning Take 1 capsule by mouth once daily 08/19/19 22 022 Inactive benzoyl peroxide 10 % topical cleanser RxNorm: 516305 Apply 1 Application Topical QD apply to face, wash rinse and dry once daily (may change to QOD if drying) 08/19/19 Inactive (%covered by insurance) #60ml refill 11 dx: acne Lyrica 100 mg capsule RxNorm: 188312 Take 1 Capsule(s) Oral QHS every night at bedtime Take 1 capsule by mouth once daily at bedtime 08/19/19 Inactive Lyrica 100 mg capsule RxNorm: 637234 Take 1 Capsule(s) Oral QHS every night at bedtime Take 1 capsule by mouth once daily at bedtime 08/16/19 Inactive Lyrica 50 mg capsule RxNorm: 494451 Take 1 Capsule(s) Oral QAM every morning Take 1 capsule by mouth once daily 08/16/19 Inactive Levemir FlexTouch U-100 Insulin 100 unit/mL (3 mL) subcutaneous pen RxNorm: 890715 Inject 86 Unit(s) Subcutaneous BID 08/05/19 22 022 Inactive d/c 83units BID Lyrica 100 mg capsule RxNorm: 929219 Take 1 Capsule(s) Oral QHS every night at bedtime Take 1 capsule by mouth once daily at bedtime 07/14/19 22 022 Inactive Lyrica 50 mg capsule RxNorm: 831327 Take 1 Capsule(s) Oral QAM every morning Take 1 capsule by mouth once daily 07/14/19 022 Inactive Levemir FlexTouch U-100 Insulin 100 unit/mL (3 mL) subcutaneous pen RxNorm: 833988 Inject 83 Unit(s) Subcutaneous BID 07/08/19 22 [...] 30 mg tablet,extended release 24 hr RxNorm: 746017 Take 1 Tablet(s) Oral QD 05/05/20 21 No Stop Date Active hydralazine 50 mg tablet RxNorm: 697802 Take 1 Tablet(s) Oral QID 05/05/20 21 022 Inactive venlafaxine ER 225 mg tablet,extended release 24 hr RxNorm: 536453 Take 1 Tablet(s) Oral QD 05/05/20 21 021 Inactive venlafaxine ER 225 mg tablet,extended release 24 hr RxNorm: 450173 Take 1 Tablet(s) Oral QD 05/05/20 21 022 Inactive hydralazine 50 mg tablet RxNorm: 470681 Take 1 Tablet(s) Oral QID 05/05/20 21 021 Inactive aspirin 81 mg tablet,delayed release RxNorm: 048662 Take 1 Tablet(s) Oral QD 03/31/20 Inactive Zetia 10 mg tablet RxNorm: 882441 Take 1 Tablet(s) Oral QD 03/31/20 Inactive Vitamin D2 1,250 mcg (50,000 unit) capsule RxNorm: 5685982 Take 1 Capsule(s) Oral QW once a week x 12 weeks 03/31/20 Inactive Vitamin D2 1,250 mcg (50,000 unit) capsule RxNorm: 9722267 Take 1 Capsule(s) Oral QW once a week 03/31/20 Inactive Zetia 10 mg tablet RxNorm: 611093 Take 1 Tablet(s) Oral QD 03/31/20 Inactive hydralazine 25 mg tablet RxNorm: 443069 Take 1 Tablet(s) Oral QID 03/31/20 021 Inactive hydralazine 25 mg tablet RxNorm: 451315 Take 1 Tablet(s) Oral QID 03/31/20 Inactive hydralazine 10 mg tablet RxNorm: 281456 Take 1 Tablet(s) Oral QID 03/03/20 021 Inactive cephalexin 500 mg tablet RxNorm: 347246 Take 1 Tablet(s) Oral QID 02/27/20 021 Inactive cephalexin 500 mg tablet RxNorm: 029538 Take 1 Tablet(s) Oral QID 02/27/20 021 Inactive lisinopril 40 mg tablet RxNorm: 640490 Take 1 Tablet(s) Oral QD 02/11/20 023 Inactive Eliquis 5 mg tablet RxNorm: 0117383 Take 1 Tablet(s) Oral BID 01/05/20 21 022 Inactive Eliquis 5 mg tablet RxNorm: 8333112 Take 2 Tablet(s) Oral QD 01/01/20 21 021 Inactive Lyrica 50 mg capsule RxNorm: 492991 Take 1 Capsule(s) Oral QAM every morning 12/24/19 21 021 Inactive Lyrica 100 mg capsule RxNorm: 360018 Take 1 Capsule(s) Oral QHS every night at bedtime 12/24/19 21 021 Inactive clotrimazole 1 % topical cream RxNorm: 976109 Apply to right foot and toes Topical BID 12/04/19 21 023 Inactive metoprolol succinate ER 200 mg tablet,extended release 24 hr RxNorm: 530202 Take 1 Tablet(s) Oral QD 12/04/19 023 Inactive ciprofloxacin 500 mg tablet RxNorm: 764435 Take 1 Tablet(s) Oral QD 11/30/19 21 021 Inactive DX ofloxacin otic drops Accu-Chek Guide test strips RxNorm: USE 1 TO CHECK GLUCOSE 4 TIMES DAILY AND NEEDED 11/15/19 21 023 Inactive Blood Glucose Test strips RxNorm: Use 1 Test Strip QID at PRN 11/05/19 023 Inactive E11.42 lisinopril 30 mg tablet RxNorm: 101368 Take 1 Tablet(s) Oral QD 10/30/19 021 Inactive lisinopril 20 mg tablet RxNorm: 907417 Take 1 Tablet(s) Oral QD 10/23/19 021 Inactive lisinopril 20 mg tablet RxNorm: 510800 Take 1 Tablet(s) Oral QD 10/23/19 21 021 Inactive lisinopril 10 mg tablet RxNorm: 745473 Take 1 Tablet(s) Oral QD 10/02/19 021 Inactive icosapent ethyl 1 gram capsule RxNorm: 8313185 Take 2 Capsule(s) (2 gm) Oral BID with meals 09/12/19 022 Inactive Okay to dispense one 2gm tab if you have that available. icosapent ethyl 1 gram capsule RxNorm: 3272340 Take 2 Capsule(s) Oral BID 09/12/19 021 Inactive Okay to dispense one 2gm tab if you have that available. amlodipine 10 mg tablet RxNorm: 137813 Take 1 Tablet(s) Oral QD 09/04/19 21 022 Inactive aspirin 81 mg tablet,delayed release RxNorm: 839773 Take 1 Tablet(s) Oral QD 09/04/19 21 021 Inactive Levemir FlexTouch U-100 Insulin 100 unit/mL (3 mL) subcutaneous pen RxNorm: 925338 Inject 150 Unit(s) Subcutaneous BID 09/04/19 21 022 Inactive venlafaxine ER 150 mg tablet,extended release 24 hr RxNorm: 850405 Take 1 Tablet(s) Oral QD 09/04/19 021 Inactive clotrimazole-betame thasone 1 %-0.05 % topical cream RxNorm: 889434 Apply to rash on red area on left abdomen/chest Topical BID 08/10/19 21 021 Inactive amlodipine 5 mg tablet RxNorm: 336513 Take 1 Tablet(s) Oral QD 07/31/19 21 021 Inactive cephalexin 500 mg tablet RxNorm: 374500 Take 1 Tablet(s) Oral BID BID - Twice Daily 07/31/19 021 Inactive Start 08/01/20 pantoprazole 40 mg tablet,delayed release RxNorm: 818974 Take 1 Tablet(s) Oral QAM every morning 07/08/19 022 Inactive senna 8.6 mg tablet RxNorm: 267198 Take 1 Tablet(s) Oral QD 07/08/19 022 Inactive pravastatin 80 mg tablet RxNorm: 932057 Take 1 Tablet(s) Oral QHS every night at bedtime 07/08/19 022 Inactive carbamazepine 200 mg tablet RxNorm: 342199 Take 1 Tablet(s) Oral BID 07/08/19 21 022 Inactive torsemide 20 mg tablet RxNorm: 805885 Take 1 Tablet(s) Oral QD 07/08/19 21 023 Inactive clopidogrel 75 mg tablet RxNorm: 529992 Take 1 Tablet(s) Oral QD 07/08/19 21 021 Inactive Blood Glucose Test strips RxNorm: Use 1 Test Strip QID at PRN 07/08/19 21 021 Inactive E11.42 Novolog Flexpen U-100 Insulin aspart 100 unit/mL (3 mL) subcutaneous RxNorm: 9551974 Administer per sliding scale Milliliter(s) Subcutaneous TID 151-200: 10 u; 201-250: 20 u; 251-300: 30 u; 301-350: 40 u; 351-400: 50 u. 07/08/19 Inactive lisinopril 5 mg tablet RxNorm: 249165 Take 1 Tablet(s) Oral QD 07/08/19 Inactive Novolog Flexpen U-100 Insulin aspart 100 unit/mL (3 mL) subcutaneous RxNorm: 4136370 Inject 85 Unit(s) Subcutaneous TID 07/08/19 21 022 Inactive clotrimazole 1 % topical cream RxNorm: 072809 Apply to bilateral groin areas Topical BID 07/08/19 Inactive metoprolol succinate ER 200 mg tablet,extended release 24 hr RxNorm: 259223 Take 1 Tablet(s) Oral QD 07/08/19 Inactive Vitamin D3 25 mcg (1,000 unit) tablet RxNorm: 989812 Take 1 Tablet(s) Oral QD 07/08/19 Inactive isosorbide dinitrate 30 mg tablet RxNorm: 834522 Take 1 Tablet(s) Oral QD 07/08/19 Inactive Levemir FlexTouch U-100 Insulin 100 unit/mL (3 mL) subcutaneous pen RxNorm: 499806 Inject 140 Unit(s) Subcutaneous BID 07/08/19 Inactive venlafaxine 75 mg tablet RxNorm: 038821 Take 1 Tablet(s) Oral QD 07/08/19 Inactive acetaminophen 500 mg tablet RxNorm: 439803 Take 1 Tablet(s) Oral TID as needed for headache 06/18/19 Inactive acetaminophen 500 mg tablet RxNorm: 520077 Take 1 Tablet(s) Oral TID as needed for headache 06/18/19 Inactive Lyrica 100 mg capsule RxNorm: 114023 Take 1 Capsule(s) Oral QHS every night at bedtime 06/11/19 Inactive Lyrica 50 mg capsule RxNorm: 902267 Take 1 Capsule(s) Oral QAM every morning 06/10/19 21 021 Inactive hydrocortisone 2.5 % topical cream RxNorm: 380221 Apply to bilateral groin creases Topical BID 05/15/20 20 021 Inactive clotrimazole 1 % topical cream RxNorm: 436888 Apply to bilateral groin areas Topical BID 05/15/20 20 Inactive Lyrica 50 mg capsule RxNorm: 284622 Take 1 Capsule(s) Oral QAM every morning 05/14/20 20 020 Inactive Lyrica 100 mg capsule RxNorm: 436928 Take 1 Capsule(s) Oral QHS every night [...] Inactive Nystop 100,000 unit/gram topical powder RxNorm: 213585 Apply to abd folds, under breasts and L side of groin Topical BID x 14 days, then BID PRN 04/08/20 20 021 Inactive dx: yeast dermatitis Lyrica 100 mg capsule RxNorm: 489746 Take 1 Capsule(s) Oral QHS every night at bedtime 03/13/20 20 020 Inactive Lyrica 50 mg capsule RxNorm: 146374 Take 1 Capsule(s) Oral QAM every morning 03/13/20 20 Inactive ketoconazole 2 % shampoo RxNorm: 686727 Apply Topical two times a week with showers 03/11/20 Inactive cholecalciferol (vitamin D3) 50 mcg (2,000 unit) tablet RxNorm: 104717 Take 1 Tablet(s) Oral QD 03/11/20 Inactive Zetia 10 mg tablet RxNorm: 745810 Take 1 Tablet(s) Oral QD 03/07/20 Inactive Zetia 10 mg tablet RxNorm: 340616 Take 1 Tablet(s) Oral QD 03/07/20 Inactive Lyrica 50 mg capsule RxNorm: 219282 Take 1 Capsule(s) Oral QAM every morning 02/15/20 Inactive Lyrica 100 mg capsule RxNorm: 158694 Take 1 Capsule(s) Oral QHS every night at bedtime 02/15/20 Inactive Lyrica 100 mg capsule RxNorm: 128747 Take 1 Capsule(s) Oral QHS every night at bedtime 02/15/20 Inactive Lyrica 50 mg capsule RxNorm: 819928 Take 1 Capsule(s) Oral QAM every morning 02/15/20 Inactive venlafaxine ER 75 mg capsule,extended release 24 hr RxNorm: 283655 Take 3 Capsule(s) Oral QD 06/12/2021 Activepolyethylene glycol 3350 17 gram/dose oral powderRxNorm: 911182Ytbj 17=1 capful Gram(s) Oral BID as needed mix with 4-8oz of vtuxua9506/12/2021ctive loperamide 2 mg capsuleRxNorm: 818319Xbms 1 Capsule(s) Oral QID as needed 06/12/2021ctiveLevemir FlexTouch U-100 Insulin 100 unit/mL (3 mL) subcutaneous penRxNorm: 749317Dxsysq 80 Unit(s) Subcutaneous BID07/14//Inactive Novolog Flexpen U-100 Insulin aspart 100 unit/mL (3 mL) subcutaneousRxNorm: 2606468Ogqfjb 30 Unit(s) Subcutaneous TID with meals/Inactive Medication [...] Date SYS BP LESS 140 CPT-4: G8752 07/14/2022 CUI BP LESS 90 CPT-4: G8754 07/14/2022 Vital Signs Date Vital 07/14/2022 Blood Pressure 1: 124/44 Code: 8480-6 Heart Rate 1: 68 bpm Code: 8867-4 Height: 5'5 Code: 8302-2 Respiratory Rate: 16 bpm SpO2: 92% Temperature: 36.6 (C) / 97.8 (F) Reason For Visit No Reason For Visit data Encounters Encounter Performer Location Location Address Codes Cristiano e ([id number]) Home or Residence Vi sit Est Pt - Moderate Level, 40 mins Diagnosis: Pre-op evaluation[ICD10: Z01.818] Diagnosis: Candidiasis, intertrigo[ICD10: B37.2] Diagnosis: Hypertensive heart disease without heart failure[ICD10: I11.9] Diagnosis: Type 2 diabetes mellitus with diabetic polyneuropathy, with long-term current use of insulin[ICD10: E11.42] Diagnosis: Hyperlipidemia associated with type 2 diabetes mellitus[ICD10: E11.69] Diagnosis: Stage 2 chronic 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[ICD10: E11.22]Tapan Wiseman on [id number] [place] [id number]-1: [id number]/14/2022 Plan of Care Planned Activity Notes Codes Status Date Referral: [facility] WPtel: [address] [id number] USReferralRecords Nanrnuqg36/08/2023Patient Education: Patient Medication WbgynaoCsgypbpvs53/28/2023atient Education: Influenza VaccineCompleted 07/14/2022ppointment: Tapan Shirley WPtel: [address] [facility] [address] [id number]: [facility] WPtel: [address] [facility] [address] [id number] QDSorpsnjuOdrzluyom03/12/2022Referral: General CardiologyReferralCompleted 1Referral: General PsychologistReferralClosed Instructions Comment [...] Sister Jyotsna involved in his care cell# [phone] Guardian: Don (tapan met in person 09/01/21), now has Lexii (same group as don)Lab Schedule: * 10/06/2022 Diabetes BGs improving, continue to follow closely with security manager and continue humulin 85u TID (hold morning dose of humulin 07/15/22 due to surgery and patient to be NPO).?? Hypertension Some BPs on the higher end (180/80) but patient is asymptomatic. Should f/u with librarian helper to further discuss. Continue amlodipine 10mg, carvedilol 25mg, and lisinopril 40mg.?? Candidiasis, intertrigo Patient needs assistance with washing and dry skin folds daily to prevent worsening yeast infectionas well as preventing any skin breakdown. Order provided today for staff to assist. Continue with nystatin powder BID.?? Pre-op evaluation PATIENT IS CLEARED FOR LEFT EYE CATARACT SURGERY.?? .07/14/2022
--- OUTSIDE RECORDS SUMMARY | 2022-11-09 23:37 | XMS_ITS | CCD ---
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 Name Role Phone Tapan Shirley PA-C Primary Care Provider Unavailabl e Tapan Shirley PA-C Chronic Care Management Unavaila ble Summary Purpose DataExchange Insurance Providers Payer name Policy type / Coverage type Covered alliance party ID Effective Begin Date Effective End Date Medicare [place] Medicare Part B [id number] Unknown Unknown Medicaid [place] Medicare Part B [id number] Unknown Unknown Family history Sister Brittany Suggs Diagnosis Age At Onset No Family Disease Entered N/A Runs in the family Diagnosis Age At Onset No Known Diseases N/A Sister Blanka Mcduffie Diagnosis Age At Onset No Family Disease Entered N/A Social History Social History Element Codes Description Effec tive Dates Marital status Unknown Single 10/07/2021 Living arrangements Unknown Jail 09/03/[address]: 8389210 Non-Smoker / No History of Smoking 09/02/[address]: 815946915 No Alcohol Consum ption 09/02/2020 Allergies, Adverse Reactions, Alerts Substance Reaction Codes Entered Date Inactivated Date Status LISINOPRIL RxNorm: 5330858No Inactive DateActiveMetformin DHpSueilvz38/28/2020No Inactive DateActive Problems Condition Codes Effective Dates Condition St atus Amputated toe of right foot ICD-10: S98. 131A ICD-9: 895.003ctiveCoronary artery disease involving [place] coronary artery of [place] heart, angina presence unspecifiedICD-10: I25.10 ICD-9: 414.01008/11/2022ctiveHyperlipidemia associated with type 2 diabetes mellitusICD-10: E11.69 ICD-9: 250.80008/11/2022ctiveOnychogryposisICD-10: L60.2 ICD-9: 703.803/ctivePre-op evaluationICD-10: Z01.818 ICD-9: V72.8403/ctiveSecondary hypertensionICD-10: I15.9 ICD-9: 405.9903/ctiveStage 2 chronic 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ICD-10: E11.22 ICD-9: 250.4003/ctiveType 2 diabetes mellitus with diabetic polyneuropathy, with long-term current use of insulinICD-10: E11.42 ICD-9: 250.6003/ctiveCandidiasis, intertrigoICD-10: B37.2 ICD-9: 112.302/ctiveHypertensive heart disease without heart failureICD- 10: I11.9 ICD-9: 402.9002/ctiveHigh risk medication useICD-10: Z79.899 ICD-9: V58.6902/ctiveMajor depression, recurrentICD-10: F33.9 ICD-9: 296.3002/ctiveVitamin D deficiencyICD-10: E55.9 ICD-9: 268.912/ctiveShortness of breathICD-10: R06.02 ICD-9: 786.0511/ctiveSeizure disorderICD-10: G40.909 ICD-9: 345.9011/ctiveCellulitisICD-10: L03.90 ICD-9: 682.910/ctiveRecurrent major depressive disorder, in partial remissionICD-10: F33.41 ICD-9: 296.3510/ctiveReducible umbilical herniaICD-10: K42.9 ICD-9: 553.110/ctiveBMI 60.0-69.9, adultICD-10: Z68.44 ICD-9: V85.4410/ctiveInappropriate sexual behaviorICD-10: Z72.89 ICD-9: 312.8910/2ActiveHx of deep venous thrombosisICD-10: Z86.718 ICD-9: V12.5109/ctiveHypercoagulable stateICD-10: D68.59 ICD-9: 289.8109/2ActiveParaparesis of both lower limbsICD-10: G82.20 ICD-9: 344.109/2ActivePVD (peripheral vascular disease)ICD-10: I73.9 ICD-9: 443.909/2ActiveDepressionICD-10: F32.9 ICD-9: 02596/2ResolvedDVT (deep venous thrombosis)ICD-10: I82.409 ICD-9: 453.4009/2ResolvedEncounter for immunizationICD-10: Z23 ICD-9: V03.8909/2ResolvedLong term (current) use of insulinICD-10: Z79.4 2ResolvedMuscular painICD-10: M79.10 ICD-9: 729.109/2ResolvedPain of right heelICD-10: M79.671 ICD-9: 729.509/2ResolvedDandruff in adultICD-10: L21.0 ICD-9: 690.1808/ctiveHypertension associated with diabetesICD-10: E11.59 ICD-9: 250.8008/2ResolvedHistory of anemia due to CKDICD-10: N18.9 ICD-9: 585.907/2ActiveStage 2 chronic kidney diseaseICD-10: N18.2 ICD-9: 585.207/2ActiveGout due to renal impairmentICD-10: M10.30 ICD-9: 274.1006/2ActivePreventative health careICD-10: Z00.00 ICD-9: V70.006/2ActiveLower extremity edemaICD-10: R60.0 ICD-9: 782.305/ctiveLearning disabilityICD-10: F81.9 ICD-9: 315.212/ctiveSkin tagICD-10: L91.8 ICD-9: 701.911/ctiveCallus of heelICD-10: L84 ICD-9: 63482/ctiveImpacted cerumen, left earICD-10: H61.22 ICD-9: 380.408/ctiveContact with [...] Z20.828 ICD-9: V01.7902esolvedHyperhidrosis of palmsICD-10: L74.512 ICD-9: 705.0540CwloxiUnbzbjrjXzzumyo77/28/2020ActiveDiabetes mellitus Type 7Lgojzle17/28/2020ActiveAnemia in chronic kidney diseaseICD-10: D63.1 02/12/2020ResolvedHyperlipidemia, unspecifiedICD-10: E78.509Resolved Medications Medication Codes Instructions Start Date Stop Date Status Fill Instructions carvedilol 25 mg tablet RxNorm: 668601 1 Tablet(s) Oral QD 07/28/19 23 023 Inactive lisinopril 20 mg tablet RxNorm: 593455 Give 1 Tablet(s) Oral QD 07/28/19 23 023 Inactive Lyrica 150 mg capsule RxNorm: 423146 Take 1 Capsule(s) Oral QHS every night at bedtime 07/19/19 023 Inactive d/c 100mg dose Diflucan 150 mg tablet RxNorm: 113112 Take 1 Tablet(s) Oral QD repeat on day 3 and 6 07/19/19 23 023 Inactive pregabalin 100 mg capsule RxNorm: 033945 Take 1 Capsule(s) Oral QAM every morning 07/19/19 023 Inactive Humulin R Regular U-100 Insulin 100 unit/mL injection solution RxNorm: 445214 85 Unit(s) Injection TID 07/13/19 023 Inactive gatifloxacin 0.5 % eye drops RxNorm: 472751 Instill 1 Drop(s) as directed TID Instill 1 drop in to affected eye(s) starting 1 day prior to surgery and continue until gone (do not exceed 4 weeks). 07/13/19 23 023 Inactive carvedilol 25 mg tablet RxNorm: 201964 2 Tablet(s) Oral BID 07/13/19 023 Inactive ketorolac 0.5 % eye drops RxNorm: 534912 Instill 1 Drop(s) as directed QID Instill 1 drop into affected eye(s) 4 times daily starting 1 day prior to surgery and continue until gone (do not exceed 4 weeks). 07/13/19 23 023 Inactive Diflucan 150 mg tablet RxNorm: 334005 Take 1 Tablet(s) Oral QD repeat on day 3 and 6 06/30/19 23 023 Inactive Accu-Chek Guide test strips RxNorm: Use 1 Test Strip QID Use 1 test strip to monitor blood glucose 4 times daily and as needed. Dx:E11.42. 06/23/19 23 023 Inactive ok to substitute with any covered alternative test strip dextromethorphan-gu aifenesin 10 mg-100 mg/5 mL oral liquid RxNorm: 936050 Take 10 Milliliter(s) Oral every 4 hours as needed for cough 02/03/ 023 Inactive dextromethorphan-gu aifenesin 10 mg-100 mg/5 mL oral liquid RxNorm: 418522 Take 10 Milliliter(s) Oral every 4 hours as needed for cough 06/19/19 023 Inactive Lyrica 150 mg capsule RxNorm: 900559 Take 1 Capsule(s) Oral QHS every night at bedtime 06/18/19 023 Inactive d/c 100mg dose aripiprazole 15 mg tablet RxNorm: 939409 /2 TAB (7.5MG) ORALLY DAILY (DX:MAJOR DEPRESSIVE DISORDER) 06/05/19 23 023 Inactive pregabalin 100 mg capsule RxNorm: 965911 1 Capsule(s) Oral QAM every morning 06/02/19 023 Inactive Banophen 50 mg capsule RxNorm: 7238240 Take 1 Capsule(s) Oral Q6H every 6 hours as needed 05/19/19 23 No Stop Date Active Novolog Flexpen U-100 Insulin aspart 100 unit/mL (3 mL) subcutaneous RxNorm: 9173734 Inject 10 Unit(s) Subcutaneous QHS every night at bedtime with nighttime snack 04/08/20 022 Inactive Novolog Flexpen U-100 Insulin aspart 100 unit/mL (3 mL) subcutaneous RxNorm: 7867775 Inject 42 Unit(s) Subcutaneous TID in addition to sliding scale 04/08/20 022 Inactive d/c 36u albuterol sulfate HFA 90 mcg/actuation aerosol inhaler RxNorm: 2953042 Take 2 Puff(s) Inhalation Q4H every four hours as needed as needed for SOB, cough, or wheezing 04/07/20 030 Active Banophen 50 mg capsule RxNorm: 6332271 Take 1 Capsule(s) Oral Q6H every 6 hours as needed 04/06/20 023 Inactive diphenhydramine 50 mg tablet RxNorm: 9032914 Take 1 Tablet(s) Oral Q6H every 6 hours as needed 04/06/20 22 022 Inactive diphenhydramine 50 mg tablet RxNorm: 4857313 1 Tablet(s) Oral Q6H every 6 hours as needed 04/06/20 22 022 Inactive Abilify 15 mg tablet RxNorm: 052458 1/2 Tablet(s) Oral QD 03/10/20 22 023 Inactive Shingrix (PF) 50 mcg/0.5 mL intramuscular suspension, kit RxNorm: 5764806 Administer 1/2 Milliliter(s) Intramuscular QD one time shingrix step 2 ( step 1 given 11/04/21) WITH needle - Nursing please administer upon arrival and once administered post a bridge message with date of administration, traveling crane operator, expiration date, and lot# so we can update [facility] 02/18/20 22 022 Inactive dispense with needle Shingrix (PF) 50 mcg/0.5 mL intramuscular suspension, kit RxNorm: 1931744 Administer 1/2 Milliliter(s) Intramuscular QD one time shingrix step 2 ( step 1 given 11/04/21) WITH needle - Nursing please administer upon arrival and once administered post a bridge message with date of administration, traveling crane operator, expiration date, and lot# so we can update [facility] 02/18/20 22 022 Inactive dispense with needle acetaminophen 500 mg tablet RxNorm: 054400 Take 1 Tablet(s) Oral TID 01/08/20 22 023 Active d/c PRN order polyethylene glycol 3350 17 gram/dose oral powder RxNorm: 499342 Take 17=1 capful Gram(s) Oral QD mix with 4-8oz of liquid 01/08/20 22 023 Active take this in addition to BID prn order Lyrica 100 mg capsule RxNorm: 329504 Take 1 Capsule(s) Oral QAM every morning 01/08/20 22 022 Inactive d/c 50mg dose Lyrica 150 mg capsule RxNorm: 250747 Take 1 Capsule(s) Oral QHS every night at bedtime 01/08/20 22 023 Inactive d/c 100mg dose Abilify 5 mg tablet RxNorm: 771358 Take 1 Tablet(s) Oral QD take 1 tab po QD #30 refill 5 dx: MDD 12/12/19 22 022 Inactive Abilify 5 mg tablet RxNorm: 587847 Take 1 Tablet(s) Oral QD take 1 tab po QD #30 refill 5 dx: MDD 12/12/19 22 022 Inactive chlorthalidone 25 mg tablet RxNorm: 156891 Take 1 Tablet(s) Oral QAM every morning 12/10/19 22 023 Active Novolog Flexpen U-100 Insulin aspart 100 unit/mL (3 mL) subcutaneous RxNorm: 8579746 Inject 42 Unit(s) Subcutaneous TID in addition to sliding scale 12/10/19 22 022 Inactive d/c 36u pregabalin 50 mg capsule RxNorm: 172083 Take 1 Capsule(s) Oral QAM every morning 11/12/19 22 022 Inactive tetanus-diphtheria toxoids-Td 2 Lf unit-2 Lf unit/0.5 mL IM suspension RxNorm: 139 Take 0.5 Miscellaneous Intramuscular 11/12/19 22 022 Inactive need tdap - nursing to administer upon arrival pregabalin 50 mg capsule RxNorm: 692293 Take 1 Capsule(s) Oral QAM every morning 10/16/19 22 022 Inactive pregabalin 50 mg capsule RxNorm: 293005 Take 1 Capsule(s) Oral QAM every morning 10/16/19 22 022 Inactive pregabalin 50 mg capsule RxNorm: 589534 1 Capsule(s) Oral QAM every morning 10/15/19 22 022 Inactive Shingrix (PF) 50 mcg/0.5 mL intramuscular suspension, kit RxNorm: 4839046 Administer 1/2 Milliliter(s) Intramuscular one time Nursing please administer upon arrival and once administered post a bridge message with date of administration, traveling crane operator, 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 10/09/19 22 022 Inactive shingrix step 1 Shingrix (PF) 50 mcg/0.5 mL intramuscular suspension, kit RxNorm: 8904390 Administer 1/2 Milliliter(s) Intramuscular one time Nursing please administer upon arrival and once administered post a bridge message with date of administration, traveling crane operator, 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 10/09/19 22 022 Inactive shingrix step 1 cholecalciferol (vitamin D3) 1,250 mcg (50,000 unit) capsule RxNorm: 507020 Take 1 Capsule(s) Oral QW once a [...] aspart 100 unit/mL (3 mL) subcutaneous RxNorm: 8288497 Inject 10 Unit(s) Subcutaneous QHS every night at bedtime with nighttime snack 10/08/19 22 Inactive Shingrix (PF) 50 mcg/0.5 mL intramuscular suspension, kit RxNorm: 5659505 ADMINISTER 2-DOSE SERIES PER CDC GUIDELINES 10/08/19 22 022 Active Shingrix (PF) 50 mcg/0.5 mL intramuscular suspension, kit RxNorm: 1610615 ADMINISTER 2-DOSE SERIES PER CDC GUIDELINES 10/08/19 22 Inactive Novolog Flexpen U-100 Insulin aspart 100 unit/mL (3 mL) subcutaneous RxNorm: 5016600 Inject 36 Unit(s) Subcutaneous TID in addition to sliding scale 10/08/19 22 Inactive Novofine Autocover 30 gauge x 1/3 needle RxNorm: Use 1 Miscellaneous UD as directed Use 1 needle as directed to administer insulin 5 times a day Dx:E11.42. 10/03/19 22 Inactive ok to substitute with any covered alternative pen needle benzoyl peroxide 10 % topical cleanser RxNorm: 724677 Apply 1 Application Topical QD apply to face, wash rinse and dry once daily (may change to QOD if drying) 08/19/19 22 022 Inactive (%covered by insurance) #60ml refill 11 dx: acne benzoyl peroxide 10 % topical cleanser RxNorm: 382072 Apply 1 Application Topical QD apply to face, wash rinse and dry once daily (may change to QOD if drying) 08/19/19 22 022 Inactive (%covered by insurance) #60ml refill 11 dx: acne benzoyl peroxide 10 % topical cleanser RxNorm: 994312 Apply 1 Application Topical QD apply to face, wash rinse and dry once daily (may change to QOD if drying) 08/19/19 22 022 Inactive (%covered by insurance) #60ml refill 11 dx: acne Lyrica 50 mg capsule RxNorm: 330614 Take 1 Capsule(s) Oral QAM every morning Take 1 capsule by mouth once daily 08/19/19 Inactive benzoyl peroxide 10 % topical cleanser RxNorm: 581490 Apply 1 Application Topical QD apply to face, wash rinse and dry once daily (may change to QOD if drying) 08/19/19 22 022 Inactive (%covered by insurance) #60ml refill 11 dx: acne Lyrica 100 mg capsule RxNorm: 611980 Take 1 Capsule(s) Oral QHS every night at bedtime Take 1 capsule by mouth once daily at bedtime 08/19/19 22 022 Inactive Lyrica 100 mg capsule RxNorm: 629780 Take 1 Capsule(s) Oral QHS every night at bedtime Take 1 capsule by mouth once daily at bedtime 08/16/19 Inactive Lyrica 50 mg capsule RxNorm: 530267 Take 1 Capsule(s) Oral QAM every morning Take 1 capsule by mouth once daily 08/16/19 Inactive Levemir FlexTouch U-100 Insulin 100 unit/mL (3 mL) subcutaneous pen RxNorm: 017367 Inject 86 Unit(s) Subcutaneous BID 08/05/19 22 022 Inactive d/c 83units BID Lyrica 100 mg capsule RxNorm: 260834 Take 1 Capsule(s) Oral QHS every night at bedtime Take 1 capsule by mouth once daily at bedtime 07/14/19 22 Inactive Lyrica 50 mg capsule RxNorm: 180501 Take 1 Capsule(s) Oral QAM every morning Take 1 capsule by mouth once daily 07/14/19 22 Inactive Levemir FlexTouch U-100 Insulin 100 unit/mL (3 mL) subcutaneous pen RxNorm: 485423 Inject 83 Unit(s) Subcutaneous BID 07/08/19 22 [...] 30 mg tablet,extended release 24 hr RxNorm: 481045 Take 1 Tablet(s) Oral QD 05/05/20 No Stop Date Active hydralazine 50 mg tablet RxNorm: 611827 Take 1 Tablet(s) Oral QID 05/05/20 Inactive venlafaxine ER 225 mg tablet,extended release 24 hr RxNorm: 689476 Take 1 Tablet(s) Oral QD 05/05/20 Inactive venlafaxine ER 225 mg tablet,extended release 24 hr RxNorm: 369188 Take 1 Tablet(s) Oral QD 05/05/20 022 Inactive hydralazine 50 mg tablet RxNorm: 876345 Take 1 Tablet(s) Oral QID 05/05/20 Inactive aspirin 81 mg tablet,delayed release RxNorm: 918754 Take 1 Tablet(s) Oral QD 03/31/20 Inactive Zetia 10 mg tablet RxNorm: 458661 Take 1 Tablet(s) Oral QD 03/31/20 Inactive Vitamin D2 1,250 mcg (50,000 unit) capsule RxNorm: 7964365 Take 1 Capsule(s) Oral QW once a week x 12 weeks 03/31/20 Inactive Vitamin D2 1,250 mcg (50,000 unit) capsule RxNorm: 3849194 Take 1 Capsule(s) Oral QW once a week 03/31/20 Inactive Zetia 10 mg tablet RxNorm: 197764 Take 1 Tablet(s) Oral QD 03/31/20 Inactive hydralazine 25 mg tablet RxNorm: 599593 Take 1 Tablet(s) Oral QID 03/31/20 021 Inactive hydralazine 25 mg tablet RxNorm: 964628 Take 1 Tablet(s) Oral QID 03/31/20 Inactive hydralazine 10 mg tablet RxNorm: 947819 Take 1 Tablet(s) Oral QID 03/03/20 021 Inactive cephalexin 500 mg tablet RxNorm: 713031 Take 1 Tablet(s) Oral QID 10/13/20 21 10/19/2 021 Inactive cephalexin 500 mg tablet RxNorm: 978464 Take 1 Tablet(s) Oral QID 02/27/20 21 021 Inactive lisinopril 40 mg tablet RxNorm: 219189 Take 1 Tablet(s) Oral QD 02/11/20 023 Inactive Eliquis 5 mg tablet RxNorm: 3259648 Take 1 Tablet(s) Oral BID 01/05/20 022 Inactive Eliquis 5 mg tablet RxNorm: 5872944 Take 2 Tablet(s) Oral QD 01/01/20 021 Inactive Lyrica 50 mg capsule RxNorm: 754846 Take 1 Capsule(s) Oral QAM every morning 12/24/19 021 Inactive Lyrica 100 mg capsule RxNorm: 035922 Take 1 Capsule(s) Oral QHS every night at bedtime 12/24/19 021 Inactive clotrimazole 1 % topical cream RxNorm: 066775 Apply to right foot and toes Topical BID 12/04/19 21 023 Inactive metoprolol succinate ER 200 mg tablet,extended release 24 hr RxNorm: 013860 Take 1 Tablet(s) Oral QD 12/04/19 023 Inactive ciprofloxacin 500 mg tablet RxNorm: 380431 Take 1 Tablet(s) Oral QD 11/30/19 021 Inactive DX ofloxacin otic drops Accu-Chek Guide test strips RxNorm: USE 1 TO CHECK GLUCOSE 4 TIMES DAILY AND NEEDED 11/15/19 21 023 Inactive Blood Glucose Test strips RxNorm: Use 1 Test Strip QID at PRN 11/05/19 21 023 Inactive E11.42 lisinopril 30 mg tablet RxNorm: 987164 Take 1 Tablet(s) Oral QD 10/30/19 021 Inactive lisinopril 20 mg tablet RxNorm: 747722 Take 1 Tablet(s) Oral QD 10/23/19 21 021 Inactive lisinopril 20 mg tablet RxNorm: 373851 Take 1 Tablet(s) Oral QD 10/23/19 21 06/09/2 021 Inactive lisinopril 10 mg tablet RxNorm: 734460 Take 1 Tablet(s) Oral QD 10/02/19 Inactive icosapent ethyl 1 gram capsule RxNorm: 1837523 Take 2 Capsule(s) (2 gm) Oral BID with meals 09/12/19 Inactive Okay to dispense one 2gm tab if you have that available. icosapent ethyl 1 gram capsule RxNorm: 8412303 Take 2 Capsule(s) Oral BID 09/12/19 021 Inactive Okay to dispense one 2gm tab if you have that available. amlodipine 10 mg tablet RxNorm: 730362 Take 1 Tablet(s) Oral QD 09/04/19 Inactive aspirin 81 mg tablet,delayed release RxNorm: 198025 Take 1 Tablet(s) Oral QD 09/04/19 Inactive Levemir FlexTouch U-100 Insulin 100 unit/mL (3 mL) subcutaneous pen RxNorm: 641373 Inject 150 Unit(s) Subcutaneous BID 09/04/19 022 Inactive venlafaxine ER 150 mg tablet,extended release 24 hr RxNorm: 383257 Take 1 Tablet(s) Oral QD 09/04/19 Inactive clotrimazole-betame thasone 1 %-0.05 % topical cream RxNorm: 727571 Apply to rash on red area on left abdomen/chest Topical BID 08/10/19 Inactive amlodipine 5 mg tablet RxNorm: 467987 Take 1 Tablet(s) Oral QD 07/31/19 Inactive cephalexin 500 mg tablet RxNorm: 756614 Take 1 Tablet(s) Oral BID BID - Twice Daily 07/31/19 021 Inactive Start 08/01/20 pantoprazole 40 mg tablet,delayed release RxNorm: 293379 Take 1 Tablet(s) Oral QAM every morning 07/08/19 022 Inactive senna 8.6 mg tablet RxNorm: 134027 Take 1 Tablet(s) Oral QD 07/08/19 022 Inactive pravastatin 80 mg tablet RxNorm: 251752 Take 1 Tablet(s) Oral QHS every night at bedtime 07/08/19 Inactive carbamazepine 200 mg tablet RxNorm: 306250 Take 1 Tablet(s) Oral BID 07/08/19 Inactive torsemide 20 mg tablet RxNorm: 880713 Take 1 Tablet(s) Oral QD 07/08/19 023 Inactive clopidogrel 75 mg tablet RxNorm: 147304 Take 1 Tablet(s) Oral QD 07/08/19 021 Inactive Blood Glucose Test strips RxNorm: Use 1 Test Strip QID at PRN 07/08/19 Inactive E11.42 Novolog Flexpen U-100 Insulin aspart 100 unit/mL (3 mL) subcutaneous RxNorm: 2561961 Administer per sliding scale Milliliter(s) Subcutaneous TID 151-200: 10 u; 201-250: 20 u; 251-300: 30 u; 301-350: 40 u; 351-400: 50 u. 07/08/19 022 Inactive lisinopril 5 mg tablet RxNorm: 920686 Take 1 Tablet(s) Oral QD 07/08/19 Inactive Novolog Flexpen U-100 Insulin aspart 100 unit/mL (3 mL) subcutaneous RxNorm: 0806237 Inject 85 Unit(s) Subcutaneous TID 07/08/19 Inactive clotrimazole 1 % topical cream RxNorm: 521097 Apply to bilateral groin areas Topical BID 07/08/19 Inactive metoprolol succinate ER 200 mg tablet,extended release 24 hr RxNorm: 800425 Take 1 Tablet(s) Oral QD 07/08/19 Inactive Vitamin D3 25 mcg (1,000 unit) tablet RxNorm: 407952 Take 1 Tablet(s) Oral QD 07/08/19 Inactive isosorbide dinitrate 30 mg tablet RxNorm: 354895 Take 1 Tablet(s) Oral QD 07/08/19 021 Inactive Levemir FlexTouch U-100 Insulin 100 unit/mL (3 mL) subcutaneous pen RxNorm: 722724 Inject 140 Unit(s) Subcutaneous BID 07/08/19 21 021 Inactive venlafaxine 75 mg tablet RxNorm: 984512 Take 1 Tablet(s) Oral QD 07/08/19 21 Inactive acetaminophen 500 mg tablet RxNorm: 053100 Take 1 Tablet(s) Oral TID as needed for headache 06/18/19 21 Inactive acetaminophen 500 mg tablet RxNorm: 001016 Take 1 Tablet(s) Oral TID as needed for headache 06/18/19 21 021 Inactive Lyrica 100 mg capsule RxNorm: 884683 Take 1 Capsule(s) Oral QHS every night at bedtime 06/11/19 21 021 Inactive Lyrica 50 mg capsule RxNorm: 629673 Take 1 Capsule(s) Oral QAM every morning 06/10/19 21 021 Inactive hydrocortisone 2.5 % topical cream RxNorm: 931979 Apply to bilateral groin creases Topical BID 05/15/20 20 021 Inactive clotrimazole 1 % topical cream RxNorm: 707095 Apply to bilateral groin areas Topical BID 05/15/20 20 021 Inactive Lyrica 50 mg capsule RxNorm: 313189 Take 1 Capsule(s) Oral QAM every morning 05/14/20 20 020 Inactive Lyrica 100 mg capsule RxNorm: 981804 Take 1 Capsule(s) Oral QHS every night [...] Inactive Nystop 100,000 unit/gram topical powder RxNorm: 125117 Apply to abd folds, under breasts and L side of groin Topical BID x 14 days, then BID PRN 04/08/20 20 Inactive dx: yeast dermatitis Lyrica 100 mg capsule RxNorm: 350909 Take 1 Capsule(s) Oral QHS every night at bedtime 03/13/20 20 Inactive Lyrica 50 mg capsule RxNorm: 008416 Take 1 Capsule(s) Oral QAM every morning 03/13/20 20 Inactive ketoconazole 2 % shampoo RxNorm: 786535 Apply Topical two times a week with showers 03/11/20 20 Inactive cholecalciferol (vitamin D3) 50 mcg (2,000 unit) tablet RxNorm: 102740 Take 1 Tablet(s) Oral QD 03/11/20 20 Inactive Zetia 10 mg tablet RxNorm: 924162 Take 1 Tablet(s) Oral QD 03/07/20 20 Inactive Zetia 10 mg tablet RxNorm: 620721 Take 1 Tablet(s) Oral QD 03/07/20 20 Inactive Lyrica 50 mg capsule RxNorm: 019407 Take 1 Capsule(s) Oral QAM every morning 02/15/20 20 Inactive Lyrica 100 mg capsule RxNorm: 680323 Take 1 Capsule(s) Oral QHS every night at bedtime 02/15/20 20 Inactive Lyrica 100 mg capsule RxNorm: 167594 Take 1 Capsule(s) Oral QHS every night at bedtime 02/15/20 20 Inactive Lyrica 50 mg capsule RxNorm: 013828 Take 1 Capsule(s) Oral QAM every morning 02/15/20 20 Inactive venlafaxine ER 75 mg capsule,extended release 24 hr RxNorm: 669849 Take 3 Capsule(s) Oral QD 06/12/2021 Activepolyethylene glycol 3350 17 gram/dose oral powderRxNorm: 463384Xvli 17=1 capful Gram(s) Oral BID as needed mix with 4-8oz of awvika5606/12/2021ctive icosapent ethyl 1 gram capsuleRxNorm: 2285385Telr 2 Capsule(s) (2 gm) Oral BID with meals/InactiveOkay to dispense one 2gm tab if you have that available.metoprolol succinate ER 200 mg tablet,extended release 24 hr RxNorm: 768976Auus 1 Tablet(s) Oral QD08/11/2022ctiveloperamide 2 mg capsule RxNorm: 703057Sdzi 1 Capsule(s) Oral QID as ellxvv1506/12/2021ctivehydralazine 50 mg tabletRxNorm: 790309Jaxu 1 Tablet(s) Oral QID08/11/2022ctiveLevemir FlexTouch U-100 Insulin 100 unit/mL (3 mL) subcutaneous penRxNorm: 849216Dcskja 80 Unit(s) Subcutaneous BID07/14//InactiveNovolog Flexpen U-100 Insulin aspart 100 unit/mL (3 mL) subcutaneousRxNorm: 6444029Akyzxj 30 Unit(s) Subcutaneous TID with meals/Inactive Medication [...] Date SYS BP LESS 140 CPT-4: G8752 08/11/2022 CUI BP > OR = 90 CPT-4: G8755 08/11/2022 DEBRIDE NAIL 6 OR MORE CPT-4: 25511 Vital Signs Date Vital 08/11/2022 Blood Pressure 1: 135/90 Code: 8480-6 BMI: 68.9 Code: 91320-3 Heart Rate 1: 78 bpm Code: 8867-4 Height: 5'5 Code: 8302-2 Respiratory Rate: 16 bpm SpO2: 98% Temperature: 36.7 (C) / 98.1 (F) Weight: 414 lbs Code: 3141-9 Reason For Visit No Reason For Visit data Encounters Encounter Performer Location Location Address Codes Cristiano e ([id number]) Home or Residence Vi sit Est Pt - Moderate Level, 40 mins Diagnosis: Pre-op evaluation[ICD10: Z01.818] Diagnosis: Hyperlipidemia associated with type 2 diabetes mellitus[ICD10: E11.69] Diagnosis: Stage 2 chronic 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[ICD10: E11.22] Diagnosis: Type 2 diabetes mellitus with diabetic polyneuropathy, with long-term current use of insulin[ICD10: E11.42] Diagnosis: Secondary hypertension[ICD10: I15.9] Diagnosis: Onychogryposis[ICD10: L60.2] Diagnosis: Amputated toe of right foot[ICD10: S98.131A] Diagnosis: Coronary artery disease involving [place] coronary artery of [place] heart, angina presence unspecified[ICD10: I25.10]Tapan Wiseman on [place] [id number] [place] [id number]-5: [id number] Plan of Care Planned Activity Notes Codes Status Date Referral: [facility] WPtel: [address], [address] [id number] USReferralRecords Kzbovyja16/08/2023atient Education: Patient Medication IjeskvhBfgutwyky65/28/2023Patient Education: Influenza VaccineCompleted 08/11/2022ppointment: Tapan Shirley WPtel: [address] [facility] [address] [id number] USF/U007/14/2022ppointment: Tapan Shirley WPtel: [address] [facility] [address] [id number]: [facility] WPtel: [address] [facility] [address] [id number]/12/2022Referral: General CardiologyReferralCompleted 1Referral: General PsychologistReferralClosed Instructions Comment [...] Sister Jyotsna involved in his care cell# [phone] Guardian: Don (tapan met in person 09/01/21), now has Lexii (same group as don)Lab Schedule: * 10/06/2022 Amputated toe of right foot amputated 2/2 infection Diabetes BGs running really high (up to the 500s) but patient is followed by endo so advised DON to send BG log to them for review even if he doesn't have an appt scheduled.?? Pre-op evaluation PATIENT IS CLEARED FOR RIGHT EYE CATARACT SURGERY.?? Onychogryposis (*9*) toenails debrided today, (*5*) on left foot, (*4*) on right foot. Medical grade nail clippersand electric dremel used to significantly reduce length & thickness. Anti-fungal treatment options reviewed, discussion deferred as treatment not appropriate or beneficial to patient. Patient tolerated procedure well. Secondary hypertension Patient has not seen director of media - would like patient to still establish with one due to elevated BPs and a complicated cardiac history. Msg sent to referrals to assist. Continue amlodipine 10mg, carvedilol, and chlorthalidone, and lisinopril. Reefer Engineer recommended stopping lisinopril and starting olmesartan but this has not been implemented. Patient to f/u with neurology professor.?? Ischemic Heart Disease Should be followed by neurology professor - staff to assist with making an appt. to f/u on 05/2022 visit (renal u/s ordered but DON unsure if it was completed).?? .08/11/2022
--- OUTSIDE RECORDS SUMMARY | 2022-11-09 23:37 | XMS_ITS | CCD ---
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 Name Role Phone Tapan Shirley PA-C Primary Care Provider Unavailabl e Tapan Shirley PA-C Chronic Care Management Unavaila ble Summary Purpose DataExchange Insurance Providers Payer name Policy type / Coverage type Covered republican ID Effective Begin Date Effective End Date [place] [id number] [place] [id number] Unknown Unknown Family history Sister Brittany Suggs Diagnosis Age At Onset No Family Disease Entered N/A Runs in the family Diagnosis Age At Onset No Known Diseases N/A Sister Blanka Mcduffie Diagnosis Age At Onset No Family Disease Entered N/A Social History Social History Element Codes Description Effec tive Dates Marital status Unknown Single 10/07/2021 Living arrangements Unknown Shelter 09/03/[address]: 7987985 Non-Smoker / No History of Smoking 09/02/[address]: 974668360 No Alcohol Consum ption 09/02/2020 Allergies, Adverse Reactions, Alerts Substance Reaction Codes Entered Date Inactivated Date Status LISINOPRIL RxNorm: 4988444No Inactive DateActiveMetformin YKnVhnvfle42/28/2020No Inactive DateActive Problems Condition Codes Effective Dates Condition St atus Amputated toe of right foot ICD-10: S98. 131A ICD-9: 895.003/ctiveCoronary artery disease involving [place] coronary artery of [place] heart, angina presence unspecifiedICD-10: I25.10 ICD-9: 414.0103ctiveHyperlipidemia associated with type 2 diabetes mellitusICD-10: E11.69 ICD-9: 250.8003ctiveOnychogryposisICD-10: L60.2 ICD-9: 703.803ctivePre-op evaluationICD-10: Z01.818 ICD-9: V72.8403/ctiveSecondary hypertensionICD-10: I15.9 ICD-9: [...] vascular disease)ICD-10: I73.9 ICD-9: 443.909/2ActiveDepressionICD-10: F32.9 ICD-9: 23174/2ResolvedDVT (deep venous thrombosis)ICD-10: I82.409 ICD-9: 453.4009/esolvedEncounter for immunizationICD-10: Z23 ICD-9: V03.8909/2ResolvedLong term (current) use of insulinICD-10: Z79.4 02/10/2022esolvedMuscular painICD-10: M79.10 ICD-9: 729.109esolvedPain of right heelICD-10: M79.671 ICD-9: 729.509/esolvedDandruff in adultICD-10: L21.0 ICD-9: 690.1808/2ActiveHypertension associated with diabetesICD-10: E11.59 ICD-9: 250.8008/2ResolvedHistory of anemia due to CKDICD-10: N18.9 ICD-9: 585.907/2ActiveStage 2 chronic kidney diseaseICD-10: N18.2 ICD-9: 585.2072ActiveGout due to renal impairmentICD-10: M10.30 ICD-9: 274.1006/2ActivePreventative health careICD-10: Z00.00 ICD-9: V70.006/2ActiveLower extremity edemaICD-10: R60.0 ICD-9: 782.305/ctiveLearning disabilityICD-10: F81.9 ICD-9: 315.212/1ActiveSkin tagICD-10: L91.8 ICD-9: 701.911ActiveCallus of heelICD-10: L84 ICD-9: 46857/ctiveImpacted cerumen, left earICD-10: H61.22 ICD-9: 380.408ctiveContact with [...] Z20.828 ICD-9: V01.7902esolvedHyperhidrosis of palmsICD-10: L74.512 ICD-9: 705.5771HuzpmsXznuzeseAsksxcn10/28/2020ActiveDiabetes mellitus Type 1Ztvociv56/28/2020ActiveAnemia in chronic kidney diseaseICD-10: D63.1 02/12/2020ResolvedHyperlipidemia, unspecifiedICD-10: E78.509Resolved Medications Medication Codes Instructions Start Date Stop Date Status Fill Instructions pregabalin 150 mg capsule RxNorm: 851694 1 Capsule(s) Oral HS at bed time 08/18/19 23 023 Active pregabalin 100 mg capsule RxNorm: 218838 1 Capsule(s) Oral QAM every morning 08/18/19 23 023 Active carvedilol 25 mg tablet RxNorm: 114330 1 Tablet(s) Oral QD 07/28/19 23 023 Inactive lisinopril 20 mg tablet RxNorm: 303293 Give 1 Tablet(s) Oral QD 07/28/19 23 023 Inactive Lyrica 150 mg capsule RxNorm: 059069 Take 1 Capsule(s) Oral QHS every night at bedtime 07/19/19 23 023 Inactive d/c 100mg dose Diflucan 150 mg tablet RxNorm: 118140 Take 1 Tablet(s) Oral QD repeat on day 3 and 6 07/19/19 23 023 Inactive pregabalin 100 mg capsule RxNorm: 524305 Take 1 Capsule(s) Oral QAM every morning 07/19/19 23 023 Inactive Humulin R Regular U-100 Insulin 100 unit/mL injection solution RxNorm: 650015 85 Unit(s) Injection TID 07/13/19 023 Inactive gatifloxacin 0.5 % eye drops RxNorm: 903515 Instill 1 Drop(s) as directed TID Instill 1 drop in to affected eye(s) starting 1 day prior to surgery and continue until gone (do not exceed 4 weeks). 07/13/19 23 023 Inactive carvedilol 25 mg tablet RxNorm: 843648 2 Tablet(s) Oral BID 07/13/19 023 Inactive ketorolac 0.5 % eye drops RxNorm: 744200 Instill 1 Drop(s) as directed QID Instill 1 drop into affected eye(s) 4 times daily starting 1 day prior to surgery and continue until gone (do not exceed 4 weeks). 07/13/19 23 023 Inactive Diflucan 150 mg tablet RxNorm: 468078 Take 1 Tablet(s) Oral QD repeat on day 3 and 6 06/30/19 23 023 Inactive Accu-Chek Guide test strips RxNorm: Use 1 Test Strip QID Use 1 test strip to monitor blood glucose 4 times daily and as needed. Dx:E11.42. 06/23/19 23 023 Inactive ok to substitute with any covered alternative test strip dextromethorphan-gu aifenesin 10 mg-100 mg/5 mL oral liquid RxNorm: 438007 Take 10 Milliliter(s) Oral every 4 hours as needed for cough 06/19/19 023 Inactive dextromethorphan-gu aifenesin 10 mg-100 mg/5 mL oral liquid RxNorm: 339432 Take 10 Milliliter(s) Oral every 4 hours as needed for cough 06/19/19 023 Inactive Lyrica 150 mg capsule RxNorm: 552260 Take 1 Capsule(s) Oral QHS every night at bedtime 06/18/19 023 Inactive d/c 100mg dose aripiprazole 15 mg tablet RxNorm: 856237 /2 TAB (7.5MG) ORALLY DAILY (DX:MAJOR DEPRESSIVE DISORDER) 06/05/19 023 Inactive pregabalin 100 mg capsule RxNorm: 678890 1 Capsule(s) Oral QAM every morning 06/02/19 023 Inactive Banophen 50 mg capsule RxNorm: 6158740 Take 1 Capsule(s) Oral Q6H every 6 hours as needed 05/19/19 23 No Stop Date Active Novolog Flexpen U-100 Insulin aspart 100 unit/mL (3 mL) subcutaneous RxNorm: 5025044 Inject 10 Unit(s) Subcutaneous QHS every night at bedtime with nighttime snack 04/08/20 022 Inactive Novolog Flexpen U-100 Insulin aspart 100 unit/mL (3 mL) subcutaneous RxNorm: 3397658 Inject 42 Unit(s) Subcutaneous TID in addition to sliding scale 04/08/20 022 Inactive d/c 36u albuterol sulfate HFA 90 mcg/actuation aerosol inhaler RxNorm: 3440689 Take 2 Puff(s) Inhalation Q4H every four hours as needed as needed for SOB, cough, or wheezing 04/07/20 030 Active Banophen 50 mg capsule RxNorm: 1951699 Take 1 Capsule(s) Oral Q6H every 6 hours as needed 04/06/20 023 Inactive diphenhydramine 50 mg tablet RxNorm: 2028888 Take 1 Tablet(s) Oral Q6H every 6 hours as needed 04/06/20 22 022 Inactive diphenhydramine 50 mg tablet RxNorm: 2873034 1 Tablet(s) Oral Q6H every 6 hours as needed 04/06/20 22 022 Inactive Abilify 15 mg tablet RxNorm: 137130 1/2 Tablet(s) Oral QD 03/10/20 22 023 Inactive Shingrix (PF) 50 mcg/0.5 mL intramuscular suspension, kit RxNorm: 3438708 Administer 1/2 Milliliter(s) Intramuscular QD one time shingrix step 2 ( step 1 given 11/04/21) WITH needle - Nursing please administer upon arrival and once administered post a bridge message with date of administration, soap worker, expiration date, and lot# so we can update [facility] 02/18/20 22 022 Inactive dispense with needle Shingrix (PF) 50 mcg/0.5 mL intramuscular suspension, kit RxNorm: 5989703 Administer 1/2 Milliliter(s) Intramuscular QD one time shingrix step 2 ( step 1 given 11/04/21) WITH needle - Nursing please administer upon arrival and once administered post a bridge message with date of administration, soap worker, expiration date, and lot# so we can update [facility] 02/18/20 22 022 Inactive dispense with needle acetaminophen 500 mg tablet RxNorm: 397145 Take 1 Tablet(s) Oral TID 01/08/20 22 023 Active d/c PRN order polyethylene glycol 3350 17 gram/dose oral powder RxNorm: 811197 Take 17=1 capful Gram(s) Oral QD mix with 4-8oz of liquid 01/08/20 22 023 Active take this in addition to BID prn order Lyrica 100 mg capsule RxNorm: 592071 Take 1 Capsule(s) Oral QAM every morning 01/08/20 22 022 Inactive d/c 50mg dose Lyrica 150 mg capsule RxNorm: 261233 Take 1 Capsule(s) Oral QHS every night at bedtime 01/08/20 22 023 Inactive d/c 100mg dose Abilify 5 mg tablet RxNorm: 660602 Take 1 Tablet(s) Oral QD take 1 tab po QD #30 refill 5 dx: MDD 12/12/19 22 022 Inactive Abilify 5 mg tablet RxNorm: 744223 Take 1 Tablet(s) Oral QD take 1 tab po QD #30 refill 5 dx: MDD 12/12/19 22 022 Inactive chlorthalidone 25 mg tablet RxNorm: 322262 Take 1 Tablet(s) Oral QAM every morning 12/10/19 22 023 Active Novolog Flexpen U-100 Insulin aspart 100 unit/mL (3 mL) subcutaneous RxNorm: 3031878 Inject 42 Unit(s) Subcutaneous TID in addition to sliding scale 12/10/19 22 022 Inactive d/c 36u pregabalin 50 mg capsule RxNorm: 273938 Take 1 Capsule(s) Oral QAM every morning 11/12/19 22 022 Inactive tetanus-diphtheria toxoids-Td 2 Lf unit-2 Lf unit/0.5 mL IM suspension RxNorm: 139 Take 0.5 Miscellaneous Intramuscular 11/12/19 22 022 Inactive need tdap - nursing to administer upon arrival pregabalin 50 mg capsule RxNorm: 820568 Take 1 Capsule(s) Oral QAM every morning 10/16/19 22 022 Inactive pregabalin 50 mg capsule RxNorm: 837846 Take 1 Capsule(s) Oral QAM every morning 10/16/19 22 022 Inactive pregabalin 50 mg capsule RxNorm: 573953 1 Capsule(s) Oral QAM every morning 10/15/19 22 022 Inactive Shingrix (PF) 50 mcg/0.5 mL intramuscular suspension, kit RxNorm: 0829009 Administer 1/2 Milliliter(s) Intramuscular one time Nursing please administer upon arrival and once administered post a bridge message with date of administration, soap worker, 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 10/09/19 22 022 Inactive shingrix step 1 Shingrix (PF) 50 mcg/0.5 mL intramuscular suspension, kit RxNorm: 3360036 Administer 1/2 Milliliter(s) Intramuscular one time Nursing please administer upon arrival and once administered post a bridge message with date of administration, soap worker, 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 10/09/19 22 Inactive shingrix step 1 cholecalciferol (vitamin D3) 1,250 mcg (50,000 unit) capsule RxNorm: 093230 Take 1 Capsule(s) Oral QW once a [...] aspart 100 unit/mL (3 mL) subcutaneous RxNorm: 9168827 Inject 10 Unit(s) Subcutaneous QHS every night at bedtime with nighttime snack 10/08/19 22 Inactive Shingrix (PF) 50 mcg/0.5 mL intramuscular suspension, kit RxNorm: 4635499 ADMINISTER 2-DOSE SERIES PER CDC GUIDELINES 10/08/19 22 Active Shingrix (PF) 50 mcg/0.5 mL intramuscular suspension, kit RxNorm: 5853433 ADMINISTER 2-DOSE SERIES PER CDC GUIDELINES 10/08/19 22 Inactive Novolog Flexpen U-100 Insulin aspart 100 unit/mL (3 mL) subcutaneous RxNorm: 3053207 Inject 36 Unit(s) Subcutaneous TID in addition to sliding scale 10/08/19 22 Inactive Novofine Autocover 30 gauge x 1/3 needle RxNorm: Use 1 Miscellaneous UD as directed Use 1 needle as directed to administer insulin 5 times a day Dx:E11.42. 10/03/19 22 Inactive ok to substitute with any covered alternative pen needle benzoyl peroxide 10 % topical cleanser RxNorm: 140853 Apply 1 Application Topical QD apply to face, wash rinse and dry once daily (may change to QOD if drying) 08/19/19 22 022 Inactive (%covered by insurance) #60ml refill 11 dx: acne benzoyl peroxide 10 % topical cleanser RxNorm: 147067 Apply 1 Application Topical QD apply to face, wash rinse and dry once daily (may change to QOD if drying) 08/19/19 22 022 Inactive (%covered by insurance) #60ml refill 11 dx: acne benzoyl peroxide 10 % topical cleanser RxNorm: 536592 Apply 1 Application Topical QD apply to face, wash rinse and dry once daily (may change to QOD if drying) 08/19/19 22 022 Inactive (%covered by insurance) #60ml refill 11 dx: acne Lyrica 50 mg capsule RxNorm: 420569 Take 1 Capsule(s) Oral QAM every morning Take 1 capsule by mouth once daily 08/19/19 022 Inactive benzoyl peroxide 10 % topical cleanser RxNorm: 361796 Apply 1 Application Topical QD apply to face, wash rinse and dry once daily (may change to QOD if drying) 08/19/19 22 022 Inactive (%covered by insurance) #60ml refill 11 dx: acne Lyrica 100 mg capsule RxNorm: 121686 Take 1 Capsule(s) Oral QHS every night at bedtime Take 1 capsule by mouth once daily at bedtime 08/19/19 22 022 Inactive Lyrica 100 mg capsule RxNorm: 376321 Take 1 Capsule(s) Oral QHS every night at bedtime Take 1 capsule by mouth once daily at bedtime 08/16/19 022 Inactive Lyrica 50 mg capsule RxNorm: 395271 Take 1 Capsule(s) Oral QAM every morning Take 1 capsule by mouth once daily 08/16/19 022 Inactive Levemir FlexTouch U-100 Insulin 100 unit/mL (3 mL) subcutaneous pen RxNorm: 174715 Inject 86 Unit(s) Subcutaneous BID 08/05/19 22 022 Inactive d/c 83units BID Lyrica 100 mg capsule RxNorm: 394245 Take 1 Capsule(s) Oral QHS every night at bedtime Take 1 capsule by mouth once daily at bedtime 07/14/19 22 Inactive Lyrica 50 mg capsule RxNorm: 512621 Take 1 Capsule(s) Oral QAM every morning Take 1 capsule by mouth once daily 07/14/19 22 Inactive Levemir FlexTouch U-100 Insulin 100 unit/mL (3 mL) subcutaneous pen RxNorm: 773807 Inject 83 Unit(s) Subcutaneous BID 07/08/19 22 [...] 30 mg tablet,extended release 24 hr RxNorm: 975787 Take 1 Tablet(s) Oral QD 05/05/20 No Stop Date Active hydralazine 50 mg tablet RxNorm: 913277 Take 1 Tablet(s) Oral QID 05/05/20 Inactive venlafaxine ER 225 mg tablet,extended release 24 hr RxNorm: 162297 Take 1 Tablet(s) Oral QD 05/05/20 Inactive venlafaxine ER 225 mg tablet,extended release 24 hr RxNorm: 359029 Take 1 Tablet(s) Oral QD 05/05/20 022 Inactive hydralazine 50 mg tablet RxNorm: 241361 Take 1 Tablet(s) Oral QID 05/05/20 Inactive aspirin 81 mg tablet,delayed release RxNorm: 061699 Take 1 Tablet(s) Oral QD 03/31/20 Inactive Zetia 10 mg tablet RxNorm: 763282 Take 1 Tablet(s) Oral QD 03/31/20 Inactive Vitamin D2 1,250 mcg (50,000 unit) capsule RxNorm: 8872933 Take 1 Capsule(s) Oral QW once a week x 12 weeks 03/31/20 Inactive Vitamin D2 1,250 mcg (50,000 unit) capsule RxNorm: 6182544 Take 1 Capsule(s) Oral QW once a week 03/31/20 Inactive Zetia 10 mg tablet RxNorm: 372323 Take 1 Tablet(s) Oral QD 03/31/20 Inactive hydralazine 25 mg tablet RxNorm: 278800 Take 1 Tablet(s) Oral QID 03/31/20 Inactive hydralazine 25 mg tablet RxNorm: 872336 Take 1 Tablet(s) Oral QID 03/31/20 Inactive hydralazine 10 mg tablet RxNorm: 985356 Take 1 Tablet(s) Oral QID 03/03/20 Inactive cephalexin 500 mg tablet RxNorm: 557105 Take 1 Tablet(s) Oral QID 02/27/20 21 021 Inactive cephalexin 500 mg tablet RxNorm: 507768 Take 1 Tablet(s) Oral QID 02/27/20 021 Inactive lisinopril 40 mg tablet RxNorm: 200422 Take 1 Tablet(s) Oral QD 02/11/20 023 Inactive Eliquis 5 mg tablet RxNorm: 0094705 Take 1 Tablet(s) Oral BID 01/05/20 21 022 Inactive Eliquis 5 mg tablet RxNorm: 2420104 Take 2 Tablet(s) Oral QD 01/01/20 21 021 Inactive Lyrica 50 mg capsule RxNorm: 553454 Take 1 Capsule(s) Oral QAM every morning 12/24/19 021 Inactive Lyrica 100 mg capsule RxNorm: 842331 Take 1 Capsule(s) Oral QHS every night at bedtime 12/24/19 021 Inactive clotrimazole 1 % topical cream RxNorm: 038595 Apply to right foot and toes Topical BID 12/04/19 21 023 Inactive metoprolol succinate ER 200 mg tablet,extended release 24 hr RxNorm: 695902 Take 1 Tablet(s) Oral QD 12/04/19 21 023 Inactive ciprofloxacin 500 mg tablet RxNorm: 185190 Take 1 Tablet(s) Oral QD 11/30/19 021 Inactive DX ofloxacin otic drops Accu-Chek Guide test strips RxNorm: USE 1 TO CHECK GLUCOSE 4 TIMES DAILY AND NEEDED 11/15/19 21 023 Inactive Blood Glucose Test strips RxNorm: Use 1 Test Strip QID at PRN 11/05/19 21 023 Inactive E11.42 lisinopril 30 mg tablet RxNorm: 588789 Take 1 Tablet(s) Oral QD 10/30/19 21 021 Inactive lisinopril 20 mg tablet RxNorm: 438503 Take 1 Tablet(s) Oral QD 10/23/19 21 021 Inactive lisinopril 20 mg tablet RxNorm: 593637 Take 1 Tablet(s) Oral QD 10/23/19 21 021 Inactive lisinopril 10 mg tablet RxNorm: 238134 Take 1 Tablet(s) Oral QD 10/02/19 21 021 Inactive icosapent ethyl 1 gram capsule RxNorm: 8498277 Take 2 Capsule(s) (2 gm) Oral BID with meals 09/12/19 022 Inactive Okay to dispense one 2gm tab if you have that available. icosapent ethyl 1 gram capsule RxNorm: 2118093 Take 2 Capsule(s) Oral BID 09/12/19 021 Inactive Okay to dispense one 2gm tab if you have that available. amlodipine 10 mg tablet RxNorm: 790901 Take 1 Tablet(s) Oral QD 09/04/19 Inactive aspirin 81 mg tablet,delayed release RxNorm: 409019 Take 1 Tablet(s) Oral QD 09/04/19 Inactive Levemir FlexTouch U-100 Insulin 100 unit/mL (3 mL) subcutaneous pen RxNorm: 950011 Inject 150 Unit(s) Subcutaneous BID 09/04/19 Inactive venlafaxine ER 150 mg tablet,extended release 24 hr RxNorm: 842142 Take 1 Tablet(s) Oral QD 09/04/19 Inactive clotrimazole-betame thasone 1 %-0.05 % topical cream RxNorm: 328681 Apply to rash on red area on left abdomen/chest Topical BID 08/10/19 21 021 Inactive amlodipine 5 mg tablet RxNorm: 335213 Take 1 Tablet(s) Oral QD 07/31/19 21 Inactive cephalexin 500 mg tablet RxNorm: 711190 Take 1 Tablet(s) Oral BID BID - Twice Daily 07/31/19 21 021 Inactive Start 08/01/20 pantoprazole 40 mg tablet,delayed release RxNorm: 805197 Take 1 Tablet(s) Oral QAM every morning 07/08/19 21 022 Inactive senna 8.6 mg tablet RxNorm: 942263 Take 1 Tablet(s) Oral QD 07/08/19 21 022 Inactive pravastatin 80 mg tablet RxNorm: 022963 Take 1 Tablet(s) Oral QHS every night at bedtime 07/08/19 21 022 Inactive carbamazepine 200 mg tablet RxNorm: 469950 Take 1 Tablet(s) Oral BID 07/08/19 21 022 Inactive torsemide 20 mg tablet RxNorm: 863276 Take 1 Tablet(s) Oral QD 07/08/19 21 023 Inactive clopidogrel 75 mg tablet RxNorm: 798073 Take 1 Tablet(s) Oral QD 07/08/19 21 021 Inactive Blood Glucose Test strips RxNorm: Use 1 Test Strip QID at PRN 07/08/19 21 Inactive E11.42 Novolog Flexpen U-100 Insulin aspart 100 unit/mL (3 mL) subcutaneous RxNorm: 3899378 Administer per sliding scale Milliliter(s) Subcutaneous TID 151-200: 10 u; 201-250: 20 u; 251-300: 30 u; 301-350: 40 u; 351-400: 50 u. 07/08/19 21 022 Inactive lisinopril 5 mg tablet RxNorm: 914243 Take 1 Tablet(s) Oral QD 07/08/19 021 Inactive Novolog Flexpen U-100 Insulin aspart 100 unit/mL (3 mL) subcutaneous RxNorm: 7619420 Inject 85 Unit(s) Subcutaneous TID 07/08/19 022 Inactive clotrimazole 1 % topical cream RxNorm: 272795 Apply to bilateral groin areas Topical BID 07/08/19 21 022 Inactive metoprolol succinate ER 200 mg tablet,extended release 24 hr RxNorm: 652240 Take 1 Tablet(s) Oral QD 07/08/19 21 021 Inactive Vitamin D3 25 mcg (1,000 unit) tablet RxNorm: 017646 Take 1 Tablet(s) Oral QD 07/08/19 21 021 Inactive isosorbide dinitrate 30 mg tablet RxNorm: 254141 Take 1 Tablet(s) Oral QD 07/08/19 021 Inactive Levemir FlexTouch U-100 Insulin 100 unit/mL (3 mL) subcutaneous pen RxNorm: 460312 Inject 140 Unit(s) Subcutaneous BID 07/08/19 021 Inactive venlafaxine 75 mg tablet RxNorm: 553904 Take 1 Tablet(s) Oral QD 07/08/19 Inactive acetaminophen 500 mg tablet RxNorm: 777416 Take 1 Tablet(s) Oral TID as needed for headache 06/18/19 Inactive acetaminophen 500 mg tablet RxNorm: 235075 Take 1 Tablet(s) Oral TID as needed for headache 06/18/19 Inactive Lyrica 100 mg capsule RxNorm: 579070 Take 1 Capsule(s) Oral QHS every night at bedtime 06/11/19 021 Inactive Lyrica 50 mg capsule RxNorm: 775251 Take 1 Capsule(s) Oral QAM every morning 06/10/19 21 021 Inactive hydrocortisone 2.5 % topical cream RxNorm: 551891 Apply to bilateral groin creases Topical BID 05/15/20 20 021 Inactive clotrimazole 1 % topical cream RxNorm: 040870 Apply to bilateral groin areas Topical BID 05/15/20 20 021 Inactive Lyrica 50 mg capsule RxNorm: 806604 Take 1 Capsule(s) Oral QAM every morning 05/14/20 20 020 Inactive Lyrica 100 mg capsule RxNorm: 189253 Take 1 Capsule(s) Oral QHS every night [...] Inactive Nystop 100,000 unit/gram topical powder RxNorm: 710602 Apply to abd folds, under breasts and L side of groin Topical BID x 14 days, then BID PRN 04/08/20 20 Inactive dx: yeast dermatitis Lyrica 100 mg capsule RxNorm: 149191 Take 1 Capsule(s) Oral QHS every night at bedtime 03/13/20 20 Inactive Lyrica 50 mg capsule RxNorm: 688586 Take 1 Capsule(s) Oral QAM every morning 03/13/20 20 Inactive ketoconazole 2 % shampoo RxNorm: 790794 Apply Topical two times a week with showers 03/11/20 20 Inactive cholecalciferol (vitamin D3) 50 mcg (2,000 unit) tablet RxNorm: 033375 Take 1 Tablet(s) Oral QD 03/11/20 20 Inactive Zetia 10 mg tablet RxNorm: 867536 Take 1 Tablet(s) Oral QD 03/07/20 20 021 Inactive Zetia 10 mg tablet RxNorm: 771901 Take 1 Tablet(s) Oral QD 03/07/20 20 Inactive Lyrica 50 mg capsule RxNorm: 294805 Take 1 Capsule(s) Oral QAM every morning 02/15/20 20 Inactive Lyrica 100 mg capsule RxNorm: 635462 Take 1 Capsule(s) Oral QHS every night at bedtime 02/15/20 20 Inactive Lyrica 100 mg capsule RxNorm: 856755 Take 1 Capsule(s) Oral QHS every night at bedtime 02/15/20 20 Inactive Lyrica 50 mg capsule RxNorm: 713998 Take 1 Capsule(s) Oral QAM every morning 02/15/20 20 020 Inactive venlafaxine ER 75 mg capsule,extended release 24 hr RxNorm: 111217 Take 3 Capsule(s) Oral QD 06/12/2021 Activepolyethylene glycol 3350 17 gram/dose oral powderRxNorm: 862883Vres 17=1 capful Gram(s) Oral BID as needed mix with 4-8oz of ssaeax6406/12/2021ctive icosapent ethyl 1 gram capsuleRxNorm: 7741285Moib 2 Capsule(s) (2 gm) Oral BID with meals/InactiveOkay to dispense one 2gm tab if you have that available.metoprolol succinate ER 200 mg tablet,extended release 24 hr RxNorm: 128178Cnya 1 Tablet(s) Oral QD08/11/2022ctiveloperamide 2 mg capsule RxNorm: 166227Ghuq 1 Capsule(s) Oral QID as sfwrhu0306/12/2021ctivehydralazine 50 mg tabletRxNorm: 934794Sdxm 1 Tablet(s) Oral QID08/11/2022ctiveLevemir FlexTouch U-100 Insulin 100 unit/mL (3 mL) subcutaneous penRxNorm: 703584Lklamj 80 Unit(s) Subcutaneous BID/InactiveNovolog Flexpen U-100 Insulin aspart 100 unit/mL (3 mL) subcutaneousRxNorm: 9054616Fhyfuz 30 Unit(s) Subcutaneous TID with meals/Inactive Medication [...] Date Referral: [facility] WPtel: [phone] , [address] [id number] USReferralRecords Hrpqaefb45/08/2023Referral: [facility] WPtel: [phone] [id number] GLUlhoknisYjttdcicw80/12/2022Referral: General CardiologyReferralCompleted 1Referral: General PsychologistReferralClosed Instructions Comment [...] Sister Jyotsna involved in his care cell# [phone] Guardian: Don (tapan met in person 09/01/21), now has Lexii (same group as don)Lab Schedule: * 10/06/2022
--- OUTSIDE RECORDS SUMMARY | 2022-11-09 23:38 | XMS_ITS | CCD ---
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 Filler Block Inserter Remover Name Role Phone Tapan Shirley PA-C Primary Care Provider Unavailabl e Tapan Shirley PA-C Chronic Care Management Unavaila ble Summary Purpose DataExchange Insurance Providers Payer name Policy type / Coverage type Covered libertarian ID Effective Begin Date Effective End Date [place] B [id number] Unknown Unknown [place] [id number] Unknown Unknown Family history Sister Brittany Suggs Diagnosis Age At Onset No Family Disease Entered N/A Runs in the family Diagnosis Age At Onset No Known Diseases N/A Sister Blanka Mcduffie Diagnosis Age At Onset No Family Disease Entered N/A Social History Social History Element Codes Description Effec tive Dates Marital status Unknown Single 10/07/2021 Living arrangements Unknown Custodial 09/03/[address]: 4186375 Non-Smoker / No History of Smoking 09/02/[address]: 301843386 No Alcohol Consum ption 09/02/2020 Allergies, Adverse Reactions, Alerts Substance Reaction Codes Entered Date Inactivated Date Status LISINOPRIL RxNorm: 2525277No Inactive DateActiveMetformin GIzWhczspj88/28/2020No Inactive DateActive Problems Condition Codes Effective Dates Condition St atus Amputated toe of right foot ICD-10: S98. 131A ICD-9: 895.003/ctiveCoronary artery disease involving viejas coronary artery of viejas heart, angina presence unspecifiedICD-10: I25.10 ICD-9: 414.0103ctiveHyperlipidemia [...] vascular disease)ICD-10: I73.9 ICD-9: 443.909/2ActiveDepressionICD-10: F32.9 ICD-9: 52171/2ResolvedDVT (deep venous thrombosis)ICD-10: I82.409 ICD-9: 453.4009/esolvedEncounter for [...] L91.8 ICD-9: 701.911ActiveCallus of heelICD-10: L84 ICD-9: 29618/ctiveImpacted cerumen, left earICD-10: H61.22 ICD-9: 380.408/ctiveContact with [...] Z20.828 ICD-9: V01.7902esolvedHyperhidrosis of palmsICD-10: L74.512 ICD-9: 705.1967FhneqcGzkksyeqJvhvlvn24/28/2020ActiveDiabetes mellitus Type 8Qntazmg46/28/2020ActiveAnemia in chronic kidney diseaseICD-10: D63.1 02/12/2020ResolvedHyperlipidemia, unspecifiedICD-10: E78.509Resolved Medications Medication Codes Instructions Start Date Stop Date Status Fill Instructions carvedilol 25 mg tablet RxNorm: 132280 Take 1 Tablet(s) Oral QD 08/25/19 23 024 Active pregabalin 150 mg capsule RxNorm: 809162 1 Capsule(s) Oral HS at bed time 08/18/19 23 023 Active pregabalin 100 mg capsule RxNorm: 332215 1 Capsule(s) Oral QAM every morning 08/18/19 23 023 Active carvedilol 25 mg tablet RxNorm: 401786 1 Tablet(s) Oral QD 07/28/19 23 023 Inactive lisinopril 20 mg tablet RxNorm: 589578 Give 1 Tablet(s) Oral QD 07/28/19 23 023 Inactive Lyrica 150 mg capsule RxNorm: 293908 Take 1 Capsule(s) Oral QHS every night at bedtime 07/19/19 23 023 Inactive d/c 100mg dose Diflucan 150 mg tablet RxNorm: 160250 Take 1 Tablet(s) Oral QD repeat on day 3 and 6 07/19/19 23 023 Inactive pregabalin 100 mg capsule RxNorm: 708500 Take 1 Capsule(s) Oral QAM every morning 07/19/19 023 Inactive Humulin R Regular U-100 Insulin 100 unit/mL injection solution RxNorm: 919199 85 Unit(s) Injection TID 07/13/19 23 023 Inactive gatifloxacin 0.5 % eye drops RxNorm: 585572 Instill 1 Drop(s) as directed TID Instill 1 drop in to affected eye(s) starting 1 day prior to surgery and continue until gone (do not exceed 4 weeks). 07/13/19 23 023 Inactive carvedilol 25 mg tablet RxNorm: 964016 2 Tablet(s) Oral BID 07/13/19 023 Inactive ketorolac 0.5 % eye drops RxNorm: 756417 Instill 1 Drop(s) as directed QID Instill 1 drop into affected eye(s) 4 times daily starting 1 day prior to surgery and continue until gone (do not exceed 4 weeks). 07/13/19 23 023 Inactive Diflucan 150 mg tablet RxNorm: 100191 Take 1 Tablet(s) Oral QD repeat on day 3 and 6 06/30/19 23 023 Inactive Accu-Chek Guide test strips RxNorm: Use 1 Test Strip QID Use 1 test strip to monitor blood glucose 4 times daily and as needed. Dx:E11.42. 06/23/19 23 023 Inactive ok to substitute with any covered alternative test strip dextromethorphan-gu aifenesin 10 mg-100 mg/5 mL oral liquid RxNorm: 399244 Take 10 Milliliter(s) Oral every 4 hours as needed for cough 06/19/19 23 023 Inactive dextromethorphan-gu aifenesin 10 mg-100 mg/5 mL oral liquid RxNorm: 495781 Take 10 Milliliter(s) Oral every 4 hours as needed for cough 06/19/19 23 023 Inactive Lyrica 150 mg capsule RxNorm: 203902 Take 1 Capsule(s) Oral QHS every night at bedtime 06/18/19 023 Inactive d/c 100mg dose aripiprazole 15 mg tablet RxNorm: 595921 /2 TAB (7.5MG) ORALLY DAILY (DX:MAJOR DEPRESSIVE DISORDER) 06/05/19 23 023 Inactive pregabalin 100 mg capsule RxNorm: 771269 1 Capsule(s) Oral QAM every morning 06/02/19 23 023 Inactive Banophen 50 mg capsule RxNorm: 9602330 Take 1 Capsule(s) Oral Q6H every 6 hours as needed 05/19/19 23 No Stop Date Active Novolog Flexpen U-100 Insulin aspart 100 unit/mL (3 mL) subcutaneous RxNorm: 4326127 Inject 10 Unit(s) Subcutaneous QHS every night at bedtime with nighttime snack 04/08/20 022 Inactive Novolog Flexpen U-100 Insulin aspart 100 unit/mL (3 mL) subcutaneous RxNorm: 0253002 Inject 42 Unit(s) Subcutaneous TID in addition to sliding scale 04/08/20 022 Inactive d/c 36u albuterol sulfate HFA 90 mcg/actuation aerosol inhaler RxNorm: 7938304 Take 2 Puff(s) Inhalation Q4H every four hours as needed as needed for SOB, cough, or wheezing 04/07/20 22 030 Active Banophen 50 mg capsule RxNorm: 2113051 Take 1 Capsule(s) Oral Q6H every 6 hours as needed 04/06/20 22 023 Inactive diphenhydramine 50 mg tablet RxNorm: 2369350 Take 1 Tablet(s) Oral Q6H every 6 hours as needed 04/06/20 22 022 Inactive diphenhydramine 50 mg tablet RxNorm: 2483745 1 Tablet(s) Oral Q6H every 6 hours as needed 04/06/20 22 022 Inactive Abilify 15 mg tablet RxNorm: 204003 1/2 Tablet(s) Oral QD 03/10/20 22 023 Inactive Shingrix (PF) 50 mcg/0.5 mL intramuscular suspension, kit RxNorm: 5579285 Administer 1/2 Milliliter(s) Intramuscular QD one time shingrix step 2 ( step 1 given 11/04/21) WITH needle - Nursing please administer upon arrival and once administered post a bridge message with date of administration, corrections unit supervisor, expiration date, and lot# so we can update [facility] 02/18/20 22 022 Inactive dispense with needle Shingrix (PF) 50 mcg/0.5 mL intramuscular suspension, kit RxNorm: 4384085 Administer 1/2 Milliliter(s) Intramuscular QD one time shingrix step 2 ( step 1 given 11/04/21) WITH needle - Nursing please administer upon arrival and once administered post a bridge message with date of administration, corrections unit supervisor, expiration date, and lot# so we can update [facility] 02/18/20 22 022 Inactive dispense with needle acetaminophen 500 mg tablet RxNorm: 609111 Take 1 Tablet(s) Oral TID 01/08/20 22 023 Active d/c PRN order polyethylene glycol 3350 17 gram/dose oral powder RxNorm: 606915 Take 17=1 capful Gram(s) Oral QD mix with 4-8oz of liquid 01/08/20 22 023 Active take this in addition to BID prn order Lyrica 100 mg capsule RxNorm: 304686 Take 1 Capsule(s) Oral QAM every morning 01/08/20 22 022 Inactive d/c 50mg dose Lyrica 150 mg capsule RxNorm: 284900 Take 1 Capsule(s) Oral QHS every night at bedtime 01/08/20 22 023 Inactive d/c 100mg dose Abilify 5 mg tablet RxNorm: 721898 Take 1 Tablet(s) Oral QD take 1 tab po QD #30 refill 5 dx: MDD 12/12/19 22 022 Inactive Abilify 5 mg tablet RxNorm: 746755 Take 1 Tablet(s) Oral QD take 1 tab po QD #30 refill 5 dx: MDD 12/12/19 22 022 Inactive chlorthalidone 25 mg tablet RxNorm: 090976 Take 1 Tablet(s) Oral QAM every morning 12/10/19 22 023 Active Novolog Flexpen U-100 Insulin aspart 100 unit/mL (3 mL) subcutaneous RxNorm: 4971428 Inject 42 Unit(s) Subcutaneous TID in addition to sliding scale 12/10/19 22 022 Inactive d/c 36u pregabalin 50 mg capsule RxNorm: 722666 Take 1 Capsule(s) Oral QAM every morning 11/12/19 22 022 Inactive tetanus-diphtheria toxoids-Td 2 Lf unit-2 Lf unit/0.5 mL IM suspension RxNorm: 139 Take 0.5 Miscellaneous Intramuscular 11/12/19 22 022 Inactive need tdap - nursing to administer upon arrival pregabalin 50 mg capsule RxNorm: 853141 Take 1 Capsule(s) Oral QAM every morning 10/16/19 22 022 Inactive pregabalin 50 mg capsule RxNorm: 472834 Take 1 Capsule(s) Oral QAM every morning 10/16/19 22 022 Inactive pregabalin 50 mg capsule RxNorm: 292998 1 Capsule(s) Oral QAM every morning 10/15/19 22 022 Inactive Shingrix (PF) 50 mcg/0.5 mL intramuscular suspension, kit RxNorm: 4458615 Administer 1/2 Milliliter(s) Intramuscular one time Nursing please administer upon arrival and once administered post a bridge message with date of administration, corrections unit 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 10/09/19 22 022 Inactive shingrix step 1 Shingrix (PF) 50 mcg/0.5 mL intramuscular suspension, kit RxNorm: 1064641 Administer 1/2 Milliliter(s) Intramuscular one time Nursing please administer upon arrival and once administered post a bridge message with date of administration, corrections unit 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 10/09/19 22 Inactive shingrix step 1 cholecalciferol (vitamin D3) 1,250 mcg (50,000 unit) capsule RxNorm: 105960 Take 1 Capsule(s) Oral QW once a [...] aspart 100 unit/mL (3 mL) subcutaneous RxNorm: 9985224 Inject 10 Unit(s) Subcutaneous QHS every night at bedtime with nighttime snack 10/08/19 22 Inactive Shingrix (PF) 50 mcg/0.5 mL intramuscular suspension, kit RxNorm: 7248869 ADMINISTER 2-DOSE SERIES PER CDC GUIDELINES 10/08/19 22 022 Active Shingrix (PF) 50 mcg/0.5 mL intramuscular suspension, kit RxNorm: 5900395 ADMINISTER 2-DOSE SERIES PER CDC GUIDELINES 10/08/19 22 022 Inactive Novolog Flexpen U-100 Insulin aspart 100 unit/mL (3 mL) subcutaneous RxNorm: 2107180 Inject 36 Unit(s) Subcutaneous TID in addition to sliding scale 10/08/19 22 Inactive Novofine Autocover 30 gauge x 1/3 needle RxNorm: Use 1 Miscellaneous UD as directed Use 1 needle as directed to administer insulin 5 times a day Dx:E11.42. 10/03/19 22 Inactive ok to substitute with any covered alternative pen needle benzoyl peroxide 10 % topical cleanser RxNorm: 906552 Apply 1 Application Topical QD apply to face, wash rinse and dry once daily (may change to QOD if drying) 08/19/19 22 022 Inactive (%covered by insurance) #60ml refill 11 dx: acne benzoyl peroxide 10 % topical cleanser RxNorm: 269252 Apply 1 Application Topical QD apply to face, wash rinse and dry once daily (may change to QOD if drying) 08/19/19 22 022 Inactive (%covered by insurance) #60ml refill 11 dx: acne benzoyl peroxide 10 % topical cleanser RxNorm: 426953 Apply 1 Application Topical QD apply to face, wash rinse and dry once daily (may change to QOD if drying) 08/19/19 22 022 Inactive (%covered by insurance) #60ml refill 11 dx: acne Lyrica 50 mg capsule RxNorm: 454200 Take 1 Capsule(s) Oral QAM every morning Take 1 capsule by mouth once daily 08/19/19 22 Inactive benzoyl peroxide 10 % topical cleanser RxNorm: 022702 Apply 1 Application Topical QD apply to face, wash rinse and dry once daily (may change to QOD if drying) 08/19/19 022 Inactive (%covered by insurance) #60ml refill 11 dx: acne Lyrica 100 mg capsule RxNorm: 647109 Take 1 Capsule(s) Oral QHS every night at bedtime Take 1 capsule by mouth once daily at bedtime 08/19/19 22 022 Inactive Lyrica 100 mg capsule RxNorm: 352629 Take 1 Capsule(s) Oral QHS every night at bedtime Take 1 capsule by mouth once daily at bedtime 08/16/19 22 Inactive Lyrica 50 mg capsule RxNorm: 946233 Take 1 Capsule(s) Oral QAM every morning Take 1 capsule by mouth once daily 08/16/19 22 Inactive Levemir FlexTouch U-100 Insulin 100 unit/mL (3 mL) subcutaneous pen RxNorm: 423301 Inject 86 Unit(s) Subcutaneous BID 08/05/19 22 022 Inactive d/c 83units BID Lyrica 100 mg capsule RxNorm: 137288 Take 1 Capsule(s) Oral QHS every night at bedtime Take 1 capsule by mouth once daily at bedtime 07/14/19 22 022 Inactive Lyrica 50 mg capsule RxNorm: 005662 Take 1 Capsule(s) Oral QAM every morning Take 1 capsule by mouth once daily 07/14/19 22 Inactive Levemir FlexTouch U-100 Insulin 100 unit/mL (3 mL) subcutaneous pen RxNorm: 240820 Inject 83 Unit(s) Subcutaneous BID 07/08/19 22 [...] 30 mg tablet,extended release 24 hr RxNorm: 276192 Take 1 Tablet(s) Oral QD 05/05/20 No Stop Date Active hydralazine 50 mg tablet RxNorm: 020997 Take 1 Tablet(s) Oral QID 05/05/20 Inactive venlafaxine ER 225 mg tablet,extended release 24 hr RxNorm: 845930 Take 1 Tablet(s) Oral QD 05/05/20 21 Inactive venlafaxine ER 225 mg tablet,extended release 24 hr RxNorm: 195316 Take 1 Tablet(s) Oral QD 05/05/20 022 Inactive hydralazine 50 mg tablet RxNorm: 575098 Take 1 Tablet(s) Oral QID 05/05/20 Inactive aspirin 81 mg tablet,delayed release RxNorm: 785039 Take 1 Tablet(s) Oral QD 03/31/20 Inactive Zetia 10 mg tablet RxNorm: 336097 Take 1 Tablet(s) Oral QD 03/31/20 Inactive Vitamin D2 1,250 mcg (50,000 unit) capsule RxNorm: 8348966 Take 1 Capsule(s) Oral QW once a week x 12 weeks 03/31/20 Inactive Vitamin D2 1,250 mcg (50,000 unit) capsule RxNorm: 3745245 Take 1 Capsule(s) Oral QW once a week 03/31/20 Inactive Zetia 10 mg tablet RxNorm: 798700 Take 1 Tablet(s) Oral QD 03/31/20 Inactive hydralazine 25 mg tablet RxNorm: 641275 Take 1 Tablet(s) Oral QID 03/31/20 21 Inactive hydralazine 25 mg tablet RxNorm: 405353 Take 1 Tablet(s) Oral QID 03/31/20 Inactive hydralazine 10 mg tablet RxNorm: 407714 Take 1 Tablet(s) Oral QID 03/03/20 021 Inactive cephalexin 500 mg tablet RxNorm: 638786 Take 1 Tablet(s) Oral QID 02/27/20 021 Inactive cephalexin 500 mg tablet RxNorm: 952061 Take 1 Tablet(s) Oral QID 02/27/20 021 Inactive lisinopril 40 mg tablet RxNorm: 396539 Take 1 Tablet(s) Oral QD 02/11/20 023 Inactive Eliquis 5 mg tablet RxNorm: 5504369 Take 1 Tablet(s) Oral BID 01/05/20 21 022 Inactive Eliquis 5 mg tablet RxNorm: 5141471 Take 2 Tablet(s) Oral QD 01/01/20 21 021 Inactive Lyrica 50 mg capsule RxNorm: 772007 Take 1 Capsule(s) Oral QAM every morning 12/24/19 021 Inactive Lyrica 100 mg capsule RxNorm: 744427 Take 1 Capsule(s) Oral QHS every night at bedtime 12/24/19 021 Inactive clotrimazole 1 % topical cream RxNorm: 439712 Apply to right foot and toes Topical BID 12/04/19 21 023 Inactive metoprolol succinate ER 200 mg tablet,extended release 24 hr RxNorm: 887473 Take 1 Tablet(s) Oral QD 12/04/19 023 Inactive ciprofloxacin 500 mg tablet RxNorm: 908680 Take 1 Tablet(s) Oral QD 11/30/19 21 021 Inactive DX ofloxacin otic drops Accu-Chek Guide test strips RxNorm: USE 1 TO CHECK GLUCOSE 4 TIMES DAILY AND NEEDED 11/15/19 21 023 Inactive Blood Glucose Test strips RxNorm: Use 1 Test Strip QID at PRN 11/05/19 21 023 Inactive E11.42 lisinopril 30 mg tablet RxNorm: 712812 Take 1 Tablet(s) Oral QD 10/30/19 21 021 Inactive lisinopril 20 mg tablet RxNorm: 949565 Take 1 Tablet(s) Oral QD 10/23/19 21 021 Inactive lisinopril 20 mg tablet RxNorm: 544405 Take 1 Tablet(s) Oral QD 10/23/19 21 021 Inactive lisinopril 10 mg tablet RxNorm: 640492 Take 1 Tablet(s) Oral QD 10/02/19 21 021 Inactive icosapent ethyl 1 gram capsule RxNorm: 6710119 Take 2 Capsule(s) (2 gm) Oral BID with meals 09/12/19 022 Inactive Okay to dispense one 2gm tab if you have that available. icosapent ethyl 1 gram capsule RxNorm: 1384869 Take 2 Capsule(s) Oral BID 09/12/19 021 Inactive Okay to dispense one 2gm tab if you have that available. amlodipine 10 mg tablet RxNorm: 081584 Take 1 Tablet(s) Oral QD 09/04/19 022 Inactive aspirin 81 mg tablet,delayed release RxNorm: 237379 Take 1 Tablet(s) Oral QD 09/04/19 21 021 Inactive Levemir FlexTouch U-100 Insulin 100 unit/mL (3 mL) subcutaneous pen RxNorm: 259874 Inject 150 Unit(s) Subcutaneous BID 09/04/19 21 022 Inactive venlafaxine ER 150 mg tablet,extended release 24 hr RxNorm: 099039 Take 1 Tablet(s) Oral QD 09/04/19 21 Inactive clotrimazole-betame thasone 1 %-0.05 % topical cream RxNorm: 872707 Apply to rash on red area on left abdomen/chest Topical BID 08/10/19 21 Inactive amlodipine 5 mg tablet RxNorm: 764084 Take 1 Tablet(s) Oral QD 07/31/19 21 Inactive cephalexin 500 mg tablet RxNorm: 017321 Take 1 Tablet(s) Oral BID BID - Twice Daily 07/31/19 21 021 Inactive Start 08/01/20 pantoprazole 40 mg tablet,delayed release RxNorm: 527667 Take 1 Tablet(s) Oral QAM every morning 07/08/19 Inactive senna 8.6 mg tablet RxNorm: 003892 Take 1 Tablet(s) Oral QD 07/08/19 022 Inactive pravastatin 80 mg tablet RxNorm: 821176 Take 1 Tablet(s) Oral QHS every night at bedtime 07/08/19 Inactive carbamazepine 200 mg tablet RxNorm: 351356 Take 1 Tablet(s) Oral BID 07/08/19 022 Inactive torsemide 20 mg tablet RxNorm: 015960 Take 1 Tablet(s) Oral QD 07/08/19 023 Inactive clopidogrel 75 mg tablet RxNorm: 174204 Take 1 Tablet(s) Oral QD 07/08/19 Inactive Blood Glucose Test strips RxNorm: Use 1 Test Strip QID at PRN 07/08/19 Inactive E11.42 Novolog Flexpen U-100 Insulin aspart 100 unit/mL (3 mL) subcutaneous RxNorm: 4857075 Administer per sliding scale Milliliter(s) Subcutaneous TID 151-200: 10 u; 201-250: 20 u; 251-300: 30 u; 301-350: 40 u; 351-400: 50 u. 07/08/19 21 Inactive lisinopril 5 mg tablet RxNorm: 590932 Take 1 Tablet(s) Oral QD 07/08/19 Inactive Novolog Flexpen U-100 Insulin aspart 100 unit/mL (3 mL) subcutaneous RxNorm: 4566153 Inject 85 Unit(s) Subcutaneous TID 07/08/19 022 Inactive clotrimazole 1 % topical cream RxNorm: 126181 Apply to bilateral groin areas Topical BID 07/08/19 Inactive metoprolol succinate ER 200 mg tablet,extended release 24 hr RxNorm: 947908 Take 1 Tablet(s) Oral QD 07/08/19 Inactive Vitamin D3 25 mcg (1,000 unit) tablet RxNorm: 312691 Take 1 Tablet(s) Oral QD 07/08/19 Inactive isosorbide dinitrate 30 mg tablet RxNorm: 062834 Take 1 Tablet(s) Oral QD 07/08/19 Inactive Levemir FlexTouch U-100 Insulin 100 unit/mL (3 mL) subcutaneous pen RxNorm: 959150 Inject 140 Unit(s) Subcutaneous BID 07/08/19 Inactive venlafaxine 75 mg tablet RxNorm: 243765 Take 1 Tablet(s) Oral QD 07/08/19 Inactive acetaminophen 500 mg tablet RxNorm: 624328 Take 1 Tablet(s) Oral TID as needed for headache 06/18/19 Inactive acetaminophen 500 mg tablet RxNorm: 062639 Take 1 Tablet(s) Oral TID as needed for headache 06/18/19 Inactive Lyrica 100 mg capsule RxNorm: 462891 Take 1 Capsule(s) Oral QHS every night at bedtime 06/11/19 021 Inactive Lyrica 50 mg capsule RxNorm: 278450 Take 1 Capsule(s) Oral QAM every morning 06/10/19 021 Inactive hydrocortisone 2.5 % topical cream RxNorm: 093833 Apply to bilateral groin creases Topical BID 05/15/20 20 021 Inactive clotrimazole 1 % topical cream RxNorm: 197530 Apply to bilateral groin areas Topical BID 05/15/20 20 021 Inactive Lyrica 50 mg capsule RxNorm: 025503 Take 1 Capsule(s) Oral QAM every morning 05/14/20 20 020 Inactive Lyrica 100 mg capsule RxNorm: 919190 Take 1 Capsule(s) Oral QHS every night [...] Inactive Nystop 100,000 unit/gram topical powder RxNorm: 239103 Apply to abd folds, under breasts and L side of groin Topical BID x 14 days, then BID PRN 04/08/20 20 Inactive dx: yeast dermatitis Lyrica 100 mg capsule RxNorm: 386147 Take 1 Capsule(s) Oral QHS every night at bedtime 03/13/20 20 Inactive Lyrica 50 mg capsule RxNorm: 508031 Take 1 Capsule(s) Oral QAM every morning 03/13/20 20 Inactive ketoconazole 2 % shampoo RxNorm: 684266 Apply Topical two times a week with showers 03/11/20 20 Inactive cholecalciferol (vitamin D3) 50 mcg (2,000 unit) tablet RxNorm: 840675 Take 1 Tablet(s) Oral QD 03/11/20 20 021 Inactive Zetia 10 mg tablet RxNorm: 150516 Take 1 Tablet(s) Oral QD 03/07/20 20 021 Inactive Zetia 10 mg tablet RxNorm: 870716 Take 1 Tablet(s) Oral QD 03/07/20 20 Inactive Lyrica 50 mg capsule RxNorm: 075060 Take 1 Capsule(s) Oral QAM every morning 02/15/20 20 Inactive Lyrica 100 mg capsule RxNorm: 104842 Take 1 Capsule(s) Oral QHS every night at bedtime 02/15/20 20 Inactive Lyrica 100 mg capsule RxNorm: 370598 Take 1 Capsule(s) Oral QHS every night at bedtime 02/15/20 20 Inactive Lyrica 50 mg capsule RxNorm: 491206 Take 1 Capsule(s) Oral QAM every morning 02/15/20 Inactive venlafaxine ER 75 mg capsule,extended release 24 hr RxNorm: 979007 Take 3 Capsule(s) Oral QD 06/12/2021 Activepolyethylene glycol 3350 17 gram/dose oral powderRxNorm: 122452Copz 17=1 capful Gram(s) Oral BID as needed mix with 4-8oz of nbjenm3306/12/2021ctive icosapent ethyl 1 gram capsuleRxNorm: 0459857Ybdg 2 Capsule(s) (2 gm) Oral BID with meals/InactiveOkay to dispense one 2gm tab if you have that available.metoprolol succinate ER 200 mg tablet,extended release 24 hr RxNorm: 554911Wnrk 1 Tablet(s) Oral QD08/11/2022ctiveloperamide 2 mg capsule RxNorm: 653544Sgtl 1 Capsule(s) Oral QID as dnmuzx4306/12/2021ctivehydralazine 50 mg tabletRxNorm: 006161Zyvz 1 Tablet(s) Oral QID08/11/2022ctiveLevemir FlexTouch U-100 Insulin 100 unit/mL (3 mL) subcutaneous penRxNorm: 736474Omczcb 80 Unit(s) Subcutaneous BID07/14//InactiveNovolog Flexpen U-100 Insulin aspart 100 unit/mL (3 mL) subcutaneousRxNorm: 1620335Schshw 30 Unit(s) Subcutaneous TID with mealsInactive Medication [...] Date Referral: [facility] WPtel: [address], [address] [id number] USReferralRecords Ojguyvew74/08/2023Referral: [facility] WPtel: [address] [id number] EYBraaphwdKwfakgmav33/12/2022Referral: General CardiologyReferralCompleted 1Referral: General PsychologistReferralClosed Instructions Comment Date Leonid is a Male being seen living at [facility]. Initial [facility] visit 01/2020. PMHx including DMII, CAD w/ 5 stents, Depression, Seizure Disorder and CKD stage 3. He moved into [facility] in 12/2019 but after a hospitalization 05/2021 he moved to the [facility] to have closer nursing attention. Sister Jyotsna involved in his care cell# [phone] Guardian: Don (tapan met in person 09/01/21), now has Lexii (same group as don)Lab Schedule: * 10/06/2022
--- OUTSIDE RECORDS SUMMARY | 2022-11-09 23:38 | XMS_ITS | CCD ---
Author Name Tapan Shirley PA-C Address [address] [place] [address] Phone Organization [facility] Phone Care Team Providers Care Director Trial Name Role Phone Tapan Shirley PA-C Primary Care Provider Unavailabl e Tapan Shirley PA-C Chronic Care Management Unavaila ble Summary Purpose DataExchange Insurance Providers Payer name Policy type / Coverage type Covered constitution party ID Effective Begin Date Effective End Date [place] Part B [id number] Unknown Unknown [place] Part B [id number] Unknown Unknown Family history Sister Brittany Suggs Diagnosis Age At Onset No Family Disease Entered N/A Runs in the family Diagnosis Age At Onset No Known Diseases N/A Sister Blanka Mcduffie Diagnosis Age At Onset No Family Disease Entered N/A Social History Social History Element Codes Description Effec tive Dates Marital status Unknown Single 10/07/2021 Living arrangements Unknown Fdc 09/03/[address]: 6644490 Non-Smoker / No History of Smoking 09/02/[address]: 303336877 No Alcohol Consum ption 09/02/2020 Allergies, Adverse Reactions, Alerts Substance Reaction Codes Entered Date Inactivated Date Status LISINOPRIL RxNorm: 4029603No Inactive DateActiveMetformin IDmAkumrdm03/28/2020No Inactive DateActive Problems Condition Codes Effective Dates Condition St atus Hyperlipidemia associated with type 2 di abetes mellitus ICD-10: E11.69 ICD-9: 250.8004ctiveLower extremity edemaICD-10: R60.0 ICD-9: 782.304/ctiveStage 2 chronic 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ICD-10: E11.22 ICD-9: 250.4004ctiveType 2 diabetes mellitus with diabetic polyneuropathy, with long-term current use of insulinICD-10: E11.42 ICD-9: 250.6004/ctiveAmputated toe of right footICD-10: S98.131A ICD-9: 895.003/ctiveCoronary artery disease involving [place] coronary artery of [place] heart, angina presence unspecifiedICD-10: I25.10 ICD-9: 414.0103/ctiveOnychogryposisICD-10: [...] vascular disease)ICD-10: I73.9 ICD-9: 443.909/2ActiveDepressionICD-10: F32.9 ICD-9: 18454/2ResolvedDVT (deep venous thrombosis)ICD-10: I82.409 ICD-9: 453.4009/2ResolvedEncounter for [...] L91.8 ICD-9: 701.911/ctiveCallus of heelICD-10: L84 ICD-9: 95469/ctiveImpacted cerumen, left earICD-10: H61.22 ICD-9: 380.408/ctiveContact with [...] Z20.828 ICD-9: V01.7902esolvedHyperhidrosis of palmsICD-10: L74.512 ICD-9: 705.6424IcedgoQtniigpqKelldtz59/28/2020ActiveDiabetes mellitus Type 7Syyspxg09/28/2020ActiveAnemia in chronic kidney diseaseICD-10: D63.1 02/12/2020ResolvedHyperlipidemia, unspecifiedICD-10: E78.509Resolved Medications Medication Codes Instructions Start Date Stop Date Status Fill Instructions torsemide 20 mg tablet RxNorm: 332728 Take 1 Tablet(s) Oral BID 09/09/19 23 024 Active d/c once daily dosing carvedilol 25 mg tablet RxNorm: 264888 Take 1 Tablet(s) Oral QD 08/25/19 23 024 Active pregabalin 150 mg capsule RxNorm: 273531 1 Capsule(s) Oral HS at bed time 08/18/19 23 023 Active pregabalin 100 mg capsule RxNorm: 203760 1 Capsule(s) Oral QAM every morning 08/18/19 23 023 Active lisinopril 20 mg tablet RxNorm: 175319 Give 1 Tablet(s) Oral QD 07/28/19 23 023 Inactive carvedilol 25 mg tablet RxNorm: 552795 1 Tablet(s) Oral QD 07/28/19 23 023 Inactive Lyrica 150 mg capsule RxNorm: 557822 Take 1 Capsule(s) Oral QHS every night at bedtime 07/19/19 23 023 Inactive d/c 100mg dose Diflucan 150 mg tablet RxNorm: 064270 Take 1 Tablet(s) Oral QD repeat on day 3 and 6 07/19/19 23 023 Inactive pregabalin 100 mg capsule RxNorm: 707041 Take 1 Capsule(s) Oral QAM every morning 07/19/19 23 023 Inactive Humulin R Regular U-100 Insulin 100 unit/mL injection solution RxNorm: 962522 85 Unit(s) Injection TID 07/13/19 23 023 Inactive gatifloxacin 0.5 % eye drops RxNorm: 244378 Instill 1 Drop(s) as directed TID Instill 1 drop in to affected eye(s) starting 1 day prior to surgery and continue until gone (do not exceed 4 weeks). 07/13/19 23 023 Inactive carvedilol 25 mg tablet RxNorm: 369313 2 Tablet(s) Oral BID 07/13/19 23 023 Inactive ketorolac 0.5 % eye drops RxNorm: 926148 Instill 1 Drop(s) as directed QID Instill 1 drop into affected eye(s) 4 times daily starting 1 day prior to surgery and continue until gone (do not exceed 4 weeks). 07/13/19 23 023 Inactive Diflucan 150 mg tablet RxNorm: 111720 Take 1 Tablet(s) Oral QD repeat on day 3 and 6 06/30/19 23 023 Inactive Accu-Chek Guide test strips RxNorm: Use 1 Test Strip QID Use 1 test strip to monitor blood glucose 4 times daily and as needed. Dx:E11.42. 06/23/19 23 023 Inactive ok to substitute with any covered alternative test strip dextromethorphan-gu aifenesin 10 mg-100 mg/5 mL oral liquid RxNorm: 979483 Take 10 Milliliter(s) Oral every 4 hours as needed for cough 06/19/19 23 023 Inactive dextromethorphan-gu aifenesin 10 mg-100 mg/5 mL oral liquid RxNorm: 045512 Take 10 Milliliter(s) Oral every 4 hours as needed for cough 06/19/19 023 Inactive Lyrica 150 mg capsule RxNorm: 652074 Take 1 Capsule(s) Oral QHS every night at bedtime 06/18/19 023 Inactive d/c 100mg dose aripiprazole 15 mg tablet RxNorm: 298852 1/2 TAB (7.5MG) ORALLY DAILY (DX:MAJOR DEPRESSIVE DISORDER) 06/05/19 23 023 Inactive pregabalin 100 mg capsule RxNorm: 344557 1 Capsule(s) Oral QAM every morning 06/02/19 023 Inactive Banophen 50 mg capsule RxNorm: 9763705 Take 1 Capsule(s) Oral Q6H every 6 hours as needed 05/19/19 23 No Stop Date Active Novolog Flexpen U-100 Insulin aspart 100 unit/mL (3 mL) subcutaneous RxNorm: 2177458 Inject 10 Unit(s) Subcutaneous QHS every night at bedtime with nighttime snack 04/08/20 22 022 Inactive Novolog Flexpen U-100 Insulin aspart 100 unit/mL (3 mL) subcutaneous RxNorm: 3984368 Inject 42 Unit(s) Subcutaneous TID in addition to sliding scale 04/08/20 22 022 Inactive d/c 36u albuterol sulfate HFA 90 mcg/actuation aerosol inhaler RxNorm: 7283984 Take 2 Puff(s) Inhalation Q4H every four hours as needed as needed for SOB, cough, or wheezing 04/07/20 030 Active Banophen 50 mg capsule RxNorm: 3364565 Take 1 Capsule(s) Oral Q6H every 6 hours as needed 04/06/20 023 Inactive diphenhydramine 50 mg tablet RxNorm: 4800351 Take 1 Tablet(s) Oral Q6H every 6 hours as needed 04/06/20 022 Inactive diphenhydramine 50 mg tablet RxNorm: 5897378 1 Tablet(s) Oral Q6H every 6 hours as needed 04/06/20 022 Inactive Abilify 15 mg tablet RxNorm: 716867 1/2 Tablet(s) Oral QD 03/10/20 023 Inactive Shingrix (PF) 50 mcg/0.5 mL intramuscular suspension, kit RxNorm: 7446162 Administer 1/2 Milliliter(s) Intramuscular QD one time shingrix step 2 ( step 1 given 11/04/21) WITH needle - Nursing please administer upon arrival and once administered post a 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, 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, 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, and lot# so we can update [facility] 02/18/20 22 022 Inactive dispense with needle Shingrix (PF) 50 mcg/0.5 mL intramuscular suspension, kit RxNorm: 9100896 Administer 1/2 Milliliter(s) Intramuscular QD one time shingrix step 2 ( step 1 given 11/04/21) WITH needle - Nursing please administer upon arrival and once administered post a bridge message 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, 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, 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, and lot# so we can update [facility] 02/18/20 22 022 Inactive dispense with needle acetaminophen 500 mg tablet RxNorm: 636765 Take 1 Tablet(s) Oral TID 01/08/20 023 Active d/c PRN order polyethylene glycol 3350 17 gram/dose oral powder RxNorm: 818078 Take 17=1 capful Gram(s) Oral QD mix with 4-8oz of liquid 01/08/20 22 023 Active take this in addition to BID prn order Lyrica 100 mg capsule RxNorm: 908598 Take 1 Capsule(s) Oral QAM every morning 01/08/20 22 022 Inactive d/c 50mg dose Lyrica 150 mg capsule RxNorm: 971091 Take 1 Capsule(s) Oral QHS every night at bedtime 01/08/20 22 023 Inactive d/c 100mg dose Abilify 5 mg tablet RxNorm: 767628 Take 1 Tablet(s) Oral QD take 1 tab po QD #30 refill 5 dx: MDD 12/12/19 22 022 Inactive Abilify 5 mg tablet RxNorm: 387049 Take 1 Tablet(s) Oral QD take 1 tab po QD #30 refill 5 dx: MDD 12/12/19 22 022 Inactive chlorthalidone 25 mg tablet RxNorm: 091760 Take 1 Tablet(s) Oral QAM every morning 12/10/19 22 023 Active Novolog Flexpen U-100 Insulin aspart 100 unit/mL (3 mL) subcutaneous RxNorm: 1097113 Inject 42 Unit(s) Subcutaneous TID in addition to sliding scale 12/10/19 22 022 Inactive d/c 36u pregabalin 50 mg capsule RxNorm: 418422 Take 1 Capsule(s) Oral QAM every morning 11/12/19 22 022 Inactive tetanus-diphtheria toxoids-Td 2 Lf unit-2 Lf unit/0.5 mL IM suspension RxNorm: 139 Take 0.5 Miscellaneous Intramuscular 11/12/19 22 022 Inactive need tdap - nursing to administer upon arrival pregabalin 50 mg capsule RxNorm: 408344 Take 1 Capsule(s) Oral QAM every morning 10/16/19 22 022 Inactive pregabalin 50 mg capsule RxNorm: 274088 Take 1 Capsule(s) Oral QAM every morning 10/16/19 22 022 Inactive pregabalin 50 mg capsule RxNorm: 247135 1 Capsule(s) Oral QAM every morning 10/15/19 22 022 Inactive Shingrix (PF) 50 mcg/0.5 mL intramuscular suspension, kit RxNorm: 5773620 Administer 1/2 Milliliter(s) Intramuscular one time Nursing please administer upon arrival and once administered post a bridge message 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 10/09/19 22 022 Inactive shingrix step 1 cholecalciferol (vitamin D3) 1,250 mcg (50,000 unit) capsule RxNorm: 330851 Take 1 Capsule(s) Oral QW once a [...] aspart 100 unit/mL (3 mL) subcutaneous RxNorm: 5151534 Inject 10 Unit(s) Subcutaneous QHS every night at bedtime with nighttime snack 10/08/19 22 022 Inactive Shingrix (PF) 50 mcg/0.5 mL intramuscular suspension, kit RxNorm: 7335623 ADMINISTER 2-DOSE SERIES PER CDC GUIDELINES 10/08/19 22 022 Active Shingrix (PF) 50 mcg/0.5 mL intramuscular suspension, kit RxNorm: 6027917 ADMINISTER 2-DOSE SERIES PER CDC GUIDELINES 10/08/19 22 022 Inactive Novolog Flexpen U-100 Insulin aspart 100 unit/mL (3 mL) subcutaneous RxNorm: 2319695 Inject 36 Unit(s) Subcutaneous TID in addition to sliding scale 10/08/19 22 Inactive Novofine Autocover 30 gauge x 1/3 needle RxNorm: Use 1 Miscellaneous UD as directed Use 1 needle as directed to administer insulin 5 times a day Dx:E11.42. 10/03/19 22 Inactive ok to substitute with any covered alternative pen needle benzoyl peroxide 10 % topical cleanser RxNorm: 084470 Apply 1 Application Topical QD apply to face, wash rinse and dry once daily (may change to QOD if drying) 08/19/19 22 022 Inactive (%covered by insurance) #60ml refill 11 dx: acne benzoyl peroxide 10 % topical cleanser RxNorm: 020174 Apply 1 Application Topical QD apply to face, wash rinse and dry once daily (may change to QOD if drying) 08/19/19 22 022 Inactive (%covered by insurance) #60ml refill 11 dx: acne benzoyl peroxide 10 % topical cleanser RxNorm: 190876 Apply 1 Application Topical QD apply to face, wash rinse and dry once daily (may change to QOD if drying) 08/19/19 022 Inactive (%covered by insurance) #60ml refill 11 dx: acne Lyrica 50 mg capsule RxNorm: 230287 Take 1 Capsule(s) Oral QAM every morning Take 1 capsule by mouth once daily 08/19/19 22 022 Inactive benzoyl peroxide 10 % topical cleanser RxNorm: 020402 Apply 1 Application Topical QD apply to face, wash rinse and dry once daily (may change to QOD if drying) 08/19/19 022 Inactive (%covered by insurance) #60ml refill 11 dx: acne Lyrica 100 mg capsule RxNorm: 309878 Take 1 Capsule(s) Oral QHS every night at bedtime Take 1 capsule by mouth once daily at bedtime 08/19/19 22 022 Inactive Lyrica 100 mg capsule RxNorm: 520565 Take 1 Capsule(s) Oral QHS every night at bedtime Take 1 capsule by mouth once daily at bedtime 08/16/19 22 04/01/2 022 Inactive Lyrica 50 mg capsule RxNorm: 117923 Take 1 Capsule(s) Oral QAM every morning Take 1 capsule by mouth once daily 08/16/19 22 022 Inactive Levemir FlexTouch U-100 Insulin 100 unit/mL (3 mL) subcutaneous pen RxNorm: 178664 Inject 86 Unit(s) Subcutaneous BID 08/05/19 22 022 Inactive d/c 83units BID Lyrica 100 mg capsule RxNorm: 127834 Take 1 Capsule(s) Oral QHS every night at bedtime Take 1 capsule by mouth once daily at bedtime 07/14/19 22 022 Inactive Lyrica 50 mg capsule RxNorm: 053675 Take 1 Capsule(s) Oral QAM every morning Take 1 capsule by mouth once daily 07/14/19 22 022 Inactive Levemir FlexTouch U-100 Insulin 100 unit/mL (3 mL) subcutaneous pen RxNorm: 531149 Inject 83 Unit(s) Subcutaneous BID 07/08/19 22 [...] 30 mg tablet,extended release 24 hr RxNorm: 346576 Take 1 Tablet(s) Oral QD 05/05/20 No Stop Date Active hydralazine 50 mg tablet RxNorm: 386749 Take 1 Tablet(s) Oral QID 05/05/20 21 022 Inactive venlafaxine ER 225 mg tablet,extended release 24 hr RxNorm: 331177 Take 1 Tablet(s) Oral QD 05/05/20 Inactive venlafaxine ER 225 mg tablet,extended release 24 hr RxNorm: 846990 Take 1 Tablet(s) Oral QD 05/05/20 21 022 Inactive hydralazine 50 mg tablet RxNorm: 189150 Take 1 Tablet(s) Oral QID 05/05/20 Inactive aspirin 81 mg tablet,delayed release RxNorm: 789845 Take 1 Tablet(s) Oral QD 03/31/20 022 Inactive Zetia 10 mg tablet RxNorm: 425169 Take 1 Tablet(s) Oral QD 03/31/20 022 Inactive Vitamin D2 1,250 mcg (50,000 unit) capsule RxNorm: 4094228 Take 1 Capsule(s) Oral QW once a week x 12 weeks 03/31/20 Inactive Vitamin D2 1,250 mcg (50,000 unit) capsule RxNorm: 9455747 Take 1 Capsule(s) Oral QW once a week 03/31/20 Inactive Zetia 10 mg tablet RxNorm: 453372 Take 1 Tablet(s) Oral QD 03/31/20 021 Inactive hydralazine 25 mg tablet RxNorm: 585328 Take 1 Tablet(s) Oral QID 03/31/20 021 Inactive hydralazine 25 mg tablet RxNorm: 126998 Take 1 Tablet(s) Oral QID 03/31/20 021 Inactive hydralazine 10 mg tablet RxNorm: 456525 Take 1 Tablet(s) Oral QID 03/03/20 021 Inactive cephalexin 500 mg tablet RxNorm: 987923 Take 1 Tablet(s) Oral QID 02/27/20 021 Inactive cephalexin 500 mg tablet RxNorm: 740687 Take 1 Tablet(s) Oral QID 02/27/20 021 Inactive lisinopril 40 mg tablet RxNorm: 332834 Take 1 Tablet(s) Oral QD 02/11/20 023 Inactive Eliquis 5 mg tablet RxNorm: 3125384 Take 1 Tablet(s) Oral BID 01/05/20 022 Inactive Eliquis 5 mg tablet RxNorm: 3749369 Take 2 Tablet(s) Oral QD 01/01/20 21 021 Inactive Lyrica 50 mg capsule RxNorm: 240553 Take 1 Capsule(s) Oral QAM every morning 12/24/19 21 021 Inactive Lyrica 100 mg capsule RxNorm: 276832 Take 1 Capsule(s) Oral QHS every night at bedtime 12/24/19 21 021 Inactive clotrimazole 1 % topical cream RxNorm: 908786 Apply to right foot and toes Topical BID 12/04/19 21 023 Inactive metoprolol succinate ER 200 mg tablet,extended release 24 hr RxNorm: 664806 Take 1 Tablet(s) Oral QD 12/04/19 21 023 Inactive ciprofloxacin 500 mg tablet RxNorm: 555573 Take 1 Tablet(s) Oral QD 11/30/19 21 021 Inactive DX ofloxacin otic drops Accu-Chek Guide test strips RxNorm: USE 1 TO CHECK GLUCOSE 4 TIMES DAILY AND NEEDED 11/15/1911/08/2 023 Inactive Blood Glucose Test strips RxNorm: Use 1 Test Strip QID at PRN 11/05/19 21 023 Inactive E11.42 lisinopril 30 mg tablet RxNorm: 946234 Take 1 Tablet(s) Oral QD 10/30/19 21 021 Inactive lisinopril 20 mg tablet RxNorm: 815774 Take 1 Tablet(s) Oral QD 10/23/19 21 021 Inactive lisinopril 20 mg tablet RxNorm: 291162 Take 1 Tablet(s) Oral QD 10/23/19 21 021 Inactive lisinopril 10 mg tablet RxNorm: 436016 Take 1 Tablet(s) Oral QD 10/02/19 021 Inactive icosapent ethyl 1 gram capsule RxNorm: 6610173 Take 2 Capsule(s) (2 gm) Oral BID with meals 09/12/19 022 Inactive Okay to dispense one 2gm tab if you have that available. icosapent ethyl 1 gram capsule RxNorm: 2236038 Take 2 Capsule(s) Oral BID 09/12/19 21 021 Inactive Okay to dispense one 2gm tab if you have that available. amlodipine 10 mg tablet RxNorm: 303878 Take 1 Tablet(s) Oral QD 09/04/19 022 Inactive aspirin 81 mg tablet,delayed release RxNorm: 187996 Take 1 Tablet(s) Oral QD 09/04/19 21 021 Inactive Levemir FlexTouch U-100 Insulin 100 unit/mL (3 mL) subcutaneous pen RxNorm: 027125 Inject 150 Unit(s) Subcutaneous BID 09/04/19 21 022 Inactive venlafaxine ER 150 mg tablet,extended release 24 hr RxNorm: 892014 Take 1 Tablet(s) Oral QD 09/04/19 21 021 Inactive clotrimazole-betame thasone 1 %-0.05 % topical cream RxNorm: 622615 Apply to rash on red area on left abdomen/chest Topical BID 08/10/19 21 021 Inactive amlodipine 5 mg tablet RxNorm: 251288 Take 1 Tablet(s) Oral QD 07/31/19 21 021 Inactive cephalexin 500 mg tablet RxNorm: 135272 Take 1 Tablet(s) Oral BID BID - Twice Daily 07/31/19 21 021 Inactive Start 08/01/20 pantoprazole 40 mg tablet,delayed release RxNorm: 626212 Take 1 Tablet(s) Oral QAM every morning 07/08/19 022 Inactive senna 8.6 mg tablet RxNorm: 286976 Take 1 Tablet(s) Oral QD 07/08/19 022 Inactive pravastatin 80 mg tablet RxNorm: 955017 Take 1 Tablet(s) Oral QHS every night at bedtime 07/08/19 022 Inactive carbamazepine 200 mg tablet RxNorm: 014075 Take 1 Tablet(s) Oral BID 07/08/19 022 Inactive torsemide 20 mg tablet RxNorm: 462015 Take 1 Tablet(s) Oral QD 07/08/19 023 Inactive clopidogrel 75 mg tablet RxNorm: 876810 Take 1 Tablet(s) Oral QD 07/08/19 021 Inactive Blood Glucose Test strips RxNorm: Use 1 Test Strip QID at PRN 07/08/19 21 021 Inactive E11.42 Novolog Flexpen U-100 Insulin aspart 100 unit/mL (3 mL) subcutaneous RxNorm: 7581156 Administer per sliding scale Milliliter(s) Subcutaneous TID 151-200: 10 u; 201-250: 20 u; 251-300: 30 u; 301-350: 40 u; 351-400: 50 u. 07/08/19 21 022 Inactive lisinopril 5 mg tablet RxNorm: 585153 Take 1 Tablet(s) Oral QD 07/08/19 021 Inactive Novolog Flexpen U-100 Insulin aspart 100 unit/mL (3 mL) subcutaneous RxNorm: 0416036 Inject 85 Unit(s) Subcutaneous TID 07/08/19 022 Inactive clotrimazole 1 % topical cream RxNorm: 166570 Apply to bilateral groin areas Topical BID 07/08/19 022 Inactive metoprolol succinate ER 200 mg tablet,extended release 24 hr RxNorm: 403707 Take 1 Tablet(s) Oral QD 07/08/19 Inactive Vitamin D3 25 mcg (1,000 unit) tablet RxNorm: 096824 Take 1 Tablet(s) Oral QD 07/08/19 Inactive isosorbide dinitrate 30 mg tablet RxNorm: 805976 Take 1 Tablet(s) Oral QD 07/08/19 Inactive Levemir FlexTouch U-100 Insulin 100 unit/mL (3 mL) subcutaneous pen RxNorm: 776584 Inject 140 Unit(s) Subcutaneous BID 07/08/19 Inactive venlafaxine 75 mg tablet RxNorm: 720488 Take 1 Tablet(s) Oral QD 07/08/19 Inactive acetaminophen 500 mg tablet RxNorm: 290711 Take 1 Tablet(s) Oral TID as needed for headache 06/18/19 Inactive acetaminophen 500 mg tablet RxNorm: 043518 Take 1 Tablet(s) Oral TID as needed for headache 06/18/19 021 Inactive Lyrica 100 mg capsule RxNorm: 737563 Take 1 Capsule(s) Oral QHS every night at bedtime 06/11/19 021 Inactive Lyrica 50 mg capsule RxNorm: 048229 Take 1 Capsule(s) Oral QAM every morning 06/10/19 021 Inactive hydrocortisone 2.5 % topical cream RxNorm: 621651 Apply to bilateral groin creases Topical BID 05/15/20 20 021 Inactive clotrimazole 1 % topical cream RxNorm: 976830 Apply to bilateral groin areas Topical BID 05/15/20 20 021 Inactive Lyrica 50 mg capsule RxNorm: 731813 Take 1 Capsule(s) Oral QAM every morning 05/14/20 20 Inactive Lyrica 100 mg capsule RxNorm: 805970 Take 1 Capsule(s) Oral QHS every night [...] Inactive Nystop 100,000 unit/gram topical powder RxNorm: 979811 Apply to abd folds, under breasts and L side of groin Topical BID x 14 days, then BID PRN 04/08/20 20 021 Inactive dx: yeast dermatitis Lyrica 100 mg capsule RxNorm: 576208 Take 1 Capsule(s) Oral QHS every night at bedtime 03/13/20 20 Inactive Lyrica 50 mg capsule RxNorm: 294819 Take 1 Capsule(s) Oral QAM every morning 03/13/20 20 Inactive ketoconazole 2 % shampoo RxNorm: 679086 Apply Topical two times a week with showers 03/11/20 20 Inactive cholecalciferol (vitamin D3) 50 mcg (2,000 unit) tablet RxNorm: 277926 Take 1 Tablet(s) Oral QD 03/11/20 20 021 Inactive Zetia 10 mg tablet RxNorm: 963048 Take 1 Tablet(s) Oral QD 03/07/20 20 021 Inactive Zetia 10 mg tablet RxNorm: 281499 Take 1 Tablet(s) Oral QD 03/07/20 20 Inactive Lyrica 50 mg capsule RxNorm: 269461 Take 1 Capsule(s) Oral QAM every morning 02/15/20 20 Inactive Lyrica 100 mg capsule RxNorm: 753394 Take 1 Capsule(s) Oral QHS every night at bedtime 02/15/20 Inactive Lyrica 100 mg capsule RxNorm: 603851 Take 1 Capsule(s) Oral QHS every night at bedtime 02/15/20 20 Inactive Lyrica 50 mg capsule RxNorm: 171254 Take 1 Capsule(s) Oral QAM every morning 02/15/20 20 Inactive venlafaxine ER 75 mg capsule,extended release 24 hr RxNorm: 181832 Take 3 Capsule(s) Oral QD 06/12/2021 Activepolyethylene glycol 3350 17 gram/dose oral powderRxNorm: 054665Mkys 17=1 capful Gram(s) Oral BID as needed mix with 4-8oz of afzpvu5206/12/2021ctive icosapent ethyl 1 gram capsuleRxNorm: 2885353Lihj 2 Capsule(s) (2 gm) Oral BID with meals10/06//InactiveOkay to dispense one 2gm tab if you have that available.metoprolol succinate ER 200 mg tablet,extended release 24 hr RxNorm: 902856Rwqd 1 Tablet(s) Oral QD08/11/2022ctiveloperamide 2 mg capsule RxNorm: 823655Migp 1 Capsule(s) Oral QID as uaqapb4706/12/2021ctivehydralazine 50 mg tabletRxNorm: 803630Ykli 1 Tablet(s) Oral QID08/11/2022ctiveLevemir FlexTouch U-100 Insulin 100 unit/mL (3 mL) subcutaneous penRxNorm: 339454Dppaio 80 Unit(s) Subcutaneous BID07/14//InactiveNovolog Flexpen U-100 Insulin aspart 100 unit/mL (3 mL) subcutaneousRxNorm: 1934260Ddztbx 30 Unit(s) Subcutaneous TID with meals10/07//Inactive Medication [...] Item Item Code Result Date Service Location CBC with Differential / Platelets CBCDIFF Baso (Absolute) 0.02 x10E3/uL 09/16/19 23 Unknown CBC with Differential / Platelets CBCDIFF Basos 0.30 % 09/16/19 23 Unknown CBC with Differential / Platelets CBCDIFF Eos 3.3 % 09/16/19 23 Unknown CBC with Differential / Platelets CBCDIFF Eos (Absolute) 0.20 x10E3/uL 09/16/19 23 Unknown CBC with Differential / Platelets CBCDIFF Hematocrit 4544-3 43.8 % 09/16/19 23 Unknown CBC with Differential / Platelets CBCDIFF Hemoglobin 718-7 13.7 g/dL 09/16/19 23 Unknown CBC with Differential / Platelets [facility]IFF LYMPHOCYTES 30.0 % 09/16/19 23 Unknown CBC with Differential / Platelets CBCDIFF Lymphocytes (Absolute) 1.82 x10E3/uL 09/16/19 23 Unknown CBC with Differential / Platelets [facility]IFF MCH 29.2 pg 09/16/19 23 Unknown CBC with Differential / Platelets [facility]IFF MCHC 31.3 g/dL 09/16/19 23 Unknown CBC with Differential / Platelets [facility]IFF MCV 787-2 93.4 % 09/16/19 23 Unknown CBC with Differential / Platelets CBCDIFF Monocytes 6.3 % 09/16/19 23 Unknown CBC with Differential / Platelets CBCDIFF Monocytes (Absolute) 0.38 x10E3/uL 09/16/19 23 Unknown CBC with Differential / Platelets CBCDIFF MPV 64322-8 10.4 fL 09/16/19 23 Unknown CBC with Differential / Platelets CBCDIFF Neutrophils 59.90 % 09/16/19 23 Unknown CBC with Differential / Platelets CBCDIFF Neutrophils (Absolute) 3.63 x10E3/uL 09/16/19 23 Unknown CBC with Differential / Platelets CBCDIFF Platelets 777-3 184 x10E3/uL 09/16/19 23 Unknown CBC with Differential / Platelets CBCDIFF RBC 4.69 x10^6/UL 09/16/19 23 Unknown CBC with Differential / Platelets CBCDIFF RDW 14.6 %binding 09/16/19 23 Unknown CBC with Differential / Platelets CBCDIFF WBC 6690-2 6.06 x10E3/uL 09/16/19 23 Unknown Basic Metabolic Panel (BMP) BMP Blood Urea Nitrogen (BUN) 42 mg/dL 09/16/19 23 Unknown Basic Metabolic Panel (BMP) BMP BUN/CREATININE RATIO 26.58 ratio 09/16/19 23 Unknown Basic Metabolic Panel (BMP) BMP Calcium (Ca) 45499-4 9.0 mg/dL 09/16/19 23 Unknown Basic Metabolic Panel (BMP) BMP Carbon Dioxide (ECO2) 29 mmol/L 09/16/19 23 Unknown Basic Metabolic Panel (BMP) BMP Chloride (Cl) 2075-0 96 mmol/L 09/16/19 23 Unknown Basic Metabolic Panel (BMP) BMP eGFR 48.85 mL/min/1.7 3m2 09/16/19 23 Unknown Basic Metabolic Panel (BMP) BMP Creatinine 2160-0 1.58 mg/dL 09/16/19 23 Unknown Basic Metabolic Panel (BMP) BMP Glucose 368 mg/dL 09/16/19 23 Unknown Basic Metabolic Panel (BMP) BMP Potassium (K) 2823-3 4.1 mmol/L 09/16/19 23 Unknown Basic Metabolic Panel (BMP) BMP Sodium (Na) 2951-2 138 mmol/L 09/16/19 23 Unknown Hemoglobin A1c HEMOGLOBA Hemoglobin A1c 49684-0 11.2 %A1c 09/16/19 23 Unknown PDFReport PDFReport PDFReport 09/15/19 23 Unknown Vital Signs Date Vital 09/08/2022 Blood Pressure 1: 144/73 Code: 8480-6 Heart Rate 1: 82 bpm Code: 8867-4 Respiratory Rate: 18 bpm SpO2: 98% Temperature: 36.4 (C) / 97.5 (F) Reason For Visit No Reason For Visit data Encounters Encounter Performer Location Location Address Codes Cristiano e ([id number]) Home or Residence Vi sit Est Pt - Moderate Level, 40 mins Diagnosis: Type 2 diabetes mellitus with diabetic polyneuropathy, with long-term current use of insulin[ICD10: E11.42] Diagnosis: Hyperlipidemia associated with type 2 diabetes mellitus[ICD10: E11.69] Diagnosis: Stage 2 chronic 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[ICD10: E11.22] Diagnosis: Lower extremity edema[ICD10: R60.0]Tapan Loerage on [id number] [place] [id number]-2: [id number] Plan of Care Planned Activity Notes Codes Status Date Referral: [facility] WPtel: [address] , [address] [id number] USReferralRecords Aiklimmu43/08/2023Patient Education: Patient Medication DkmrksxUiyskkhar94/25/2023Patient Education: Influenza VaccineCompleted 09/08/2022ppointment: Tapan Shirley WPtel: [address] [facility] [address] [id number] USF/U008/11/2022ppointment: Tapan Shirley WPtel: [address] [facility] [address] [id number] USF/U007/14/2022ppointment: Tapan Shirley WPtel: [address] [facility] 300 [id number] USF/U02Referral: [facility] WPtel: [address] [facility] [address] [id number] VFEcdmqnxpEyjwksmec08/12/2022Referral: General CardiologyReferralCompleted 1Referral: General PsychologistReferralClosed Instructions Comment Date Peter is a Male being seen living at [...] Sister Jyotsna involved in his care cell# [phone] Guardian: Don (tapan met in person 09/01/21), now has Lexii (same group as don)Lab Schedule: Mar-* 10/06/2022 Diabetes BGs running high again this month. Nursing present and aware patient needs to have endo adjust his BGs as he is followed by them and is on a large amount of insulin. Would like the expert to weigh inhere. Nurse agrees to do so and will reach out if she doesn't hear back from endo within a few days.?? Edema Continues to have pitting 2+ edema in his feet and 1+ edema in LEs with taut skin. Would recommend his torsemide be increased, will want to check a BMP next week to ensure his electrolytes remain normal. Increase torsemide to 20mg BID (d.c once daily).?? .09/08/2022
--- OUTSIDE RECORDS SUMMARY | 2022-11-09 23:39 | XMS_ITS | CCD ---
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 Notched Blade Loader Name Role Phone Tapan Shirley PA-C Primary Care Provider Unavailabl e Tapan Shirley PA-C Chronic Care Management Unavaila ble Summary Purpose DataExchange Insurance Providers Payer name Policy type / Coverage type Covered libertarian ID Effective Begin Date Effective End Date [place] [id number] Unknown Unknown [place] [id number] Unknown Unknown Family history Sister Brittany Suggs Diagnosis Age At Onset No Family Disease Entered N/A Runs in the family Diagnosis Age At Onset No Known Diseases N/A Sister Blanka Mcduffie Diagnosis Age At Onset No Family Disease Entered N/A Social History Social History Element Codes Description Effec tive Dates Marital status Unknown Single 10/07/2021 Living arrangements Unknown Half-Way 09/03/[address]: 3597364 Non-Smoker / No History of Smoking 09/02/[address]: 582221069 No Alcohol Consum ption 09/02/2020 Allergies, Adverse Reactions, Alerts Substance Reaction Codes Entered Date Inactivated Date Status LISINOPRIL RxNorm: 2096790No Inactive DateActiveMetformin YFkTpdgsci04/28/2020No Inactive DateActive Problems Condition Codes Effective Dates Condition St atus Hyperlipidemia associated with type 2 di abetes mellitus ICD-10: E11.69 ICD-9: 250.8004ctiveLower extremity edemaICD-10: R60.0 ICD-9: 782.304/ctiveStage 2 chronic 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ICD-10: E11.22 ICD-9: 250.4004ctiveType 2 diabetes mellitus with diabetic polyneuropathy, with long-term current use of insulinICD-10: E11.42 ICD-9: 250.6004ctiveAmputated toe of right footICD-10: S98.131A ICD-9: 895.003/ctiveCoronary artery disease involving [place] coronary artery of [place] heart, angina presence unspecifiedICD-10: I25.10 ICD-9: 414.0103/ctiveOnychogryposisICD-10: [...] 312.8910/ctiveHx of deep venous thrombosisICD-10: Z86.718 ICD-9: V12.5109/2ActiveHypercoagulable stateICD-10: D68.59 ICD-9: 289.8109/2ActiveParaparesis of both lower limbsICD-10: G82.20 ICD-9: 344.109/ctivePVD (peripheral vascular disease)ICD-10: I73.9 ICD-9: 443.909/2ActiveDepressionICD-10: F32.9 ICD-9: 27839/2ResolvedDVT (deep venous thrombosis)ICD-10: I82.409 ICD-9: 453.4009/2ResolvedEncounter for immunizationICD-10: Z23 ICD-9: V03.8909/2ResolvedLong term (current) use of insulinICD-10: Z79.4 2ResolvedMuscular painICD-10: M79.10 ICD-9: 729.1092ResolvedPain of right heelICD-10: M79.671 ICD-9: 729.509/2ResolvedDandruff in adultICD-10: L21.0 ICD-9: 690.18082ActiveHypertension associated with diabetesICD-10: E11.59 ICD-9: 250.8008/2ResolvedHistory of anemia due to CKDICD-10: N18.9 ICD-9: 585.907/2ActiveStage 2 chronic kidney diseaseICD-10: N18.2 ICD-9: 585.207/2ActiveGout due to renal impairmentICD-10: M10.30 ICD-9: 274.1006/2ActivePreventative health careICD-10: Z00.00 ICD-9: V70.006/ctiveLearning disabilityICD-10: F81.9 ICD-9: 315.212/1ActiveSkin tagICD-10: L91.8 ICD-9: 701.911ActiveCallus of heelICD-10: L84 ICD-9: 94558/1ActiveImpacted cerumen, left earICD-10: H61.22 ICD-9: 380.408ctiveContact with [...] Z20.828 ICD-9: V01.7902esolvedHyperhidrosis of palmsICD-10: L74.512 ICD-9: 705.8257JysbsvXezdsyzkYlgyjwt37/28/2020ActiveDiabetes mellitus Type 6Illtfnr39/28/2020ActiveAnemia in chronic kidney diseaseICD-10: D63.1 02/12/2020ResolvedHyperlipidemia, unspecifiedICD-10: E78.Resolved Medications Medication Codes Instructions Start Date Stop Date Status Fill Instructions Accu-Chek Guide test strips RxNorm: Use 1 Test Strip QID 09/15/19 23 024 Active ok to substitute with any covered alternative test strip Lancets,Thin 28 gauge RxNorm: Use 1 as directed QID 09/15/19 23 024 Active torsemide 20 mg tablet RxNorm: 916610 Take 1 Tablet(s) Oral BID 09/09/19 23 024 Active d/c once daily dosing carvedilol 25 mg tablet RxNorm: 725294 Take 1 Tablet(s) Oral QD 08/25/19 23 024 Active pregabalin 150 mg capsule RxNorm: 245818 1 Capsule(s) Oral HS at bed time 08/18/19 23 023 Active pregabalin 100 mg capsule RxNorm: 781837 1 Capsule(s) Oral QAM every morning 08/18/19 23 023 Active lisinopril 20 mg tablet RxNorm: 203882 Give 1 Tablet(s) Oral QD 07/28/19 23 023 Inactive carvedilol 25 mg tablet RxNorm: 444198 1 Tablet(s) Oral QD 07/28/19 23 023 Inactive Lyrica 150 mg capsule RxNorm: 324462 Take 1 Capsule(s) Oral QHS every night at bedtime 07/19/19 23 023 Inactive d/c 100mg dose Diflucan 150 mg tablet RxNorm: 386197 Take 1 Tablet(s) Oral QD repeat on day 3 and 6 07/19/19 23 023 Inactive pregabalin 100 mg capsule RxNorm: 630205 Take 1 Capsule(s) Oral QAM every morning 07/19/19 23 023 Inactive Humulin R Regular U-100 Insulin 100 unit/mL injection solution RxNorm: 860514 85 Unit(s) Injection TID 07/13/19 23 023 Inactive gatifloxacin 0.5 % eye drops RxNorm: 992378 Instill 1 Drop(s) as directed TID Instill 1 drop in to affected eye(s) starting 1 day prior to surgery and continue until gone (do not exceed 4 weeks). 07/13/19 23 023 Inactive carvedilol 25 mg tablet RxNorm: 190434 2 Tablet(s) Oral BID 07/13/19 23 023 Inactive ketorolac 0.5 % eye drops RxNorm: 192477 Instill 1 Drop(s) as directed QID Instill 1 drop into affected eye(s) 4 times daily starting 1 day prior to surgery and continue until gone (do not exceed 4 weeks). 07/13/19 23 023 Inactive Diflucan 150 mg tablet RxNorm: 491327 Take 1 Tablet(s) Oral QD repeat on day 3 and 6 06/30/19 023 Inactive Accu-Chek Guide test strips RxNorm: Use 1 Test Strip QID Use 1 test strip to monitor blood glucose 4 times daily and as needed. Dx:E11.42. 06/23/19 023 Inactive ok to substitute with any covered alternative test strip dextromethorphan-gu aifenesin 10 mg-100 mg/5 mL oral liquid RxNorm: 194776 Take 10 Milliliter(s) Oral every 4 hours as needed for cough 06/19/19 023 Inactive dextromethorphan-gu aifenesin 10 mg-100 mg/5 mL oral liquid RxNorm: 700075 Take 10 Milliliter(s) Oral every 4 hours as needed for cough 06/19/19 023 Inactive Lyrica 150 mg capsule RxNorm: 911339 Take 1 Capsule(s) Oral QHS every night at bedtime 06/18/19 023 Inactive d/c 100mg dose aripiprazole 15 mg tablet RxNorm: 113857 1/2 TAB (7.5MG) ORALLY DAILY (DX:MAJOR DEPRESSIVE DISORDER) 06/05/19 23 023 Inactive pregabalin 100 mg capsule RxNorm: 044503 1 Capsule(s) Oral QAM every morning 06/02/19 023 Inactive Banophen 50 mg capsule RxNorm: 5525352 Take 1 Capsule(s) Oral Q6H every 6 hours as needed 05/19/19 23 No Stop Date Active Novolog Flexpen U-100 Insulin aspart 100 unit/mL (3 mL) subcutaneous RxNorm: 9711148 Inject 10 Unit(s) Subcutaneous QHS every night at bedtime with nighttime snack 04/08/20 22 022 Inactive Novolog Flexpen U-100 Insulin aspart 100 unit/mL (3 mL) subcutaneous RxNorm: 5215863 Inject 42 Unit(s) Subcutaneous TID in addition to sliding scale 04/08/20 022 Inactive d/c 36u albuterol sulfate HFA 90 mcg/actuation aerosol inhaler RxNorm: 9093397 Take 2 Puff(s) Inhalation Q4H every four hours as needed as needed for SOB, cough, or wheezing 04/07/20 030 Active Banophen 50 mg capsule RxNorm: 3107334 Take 1 Capsule(s) Oral Q6H every 6 hours as needed 04/06/20 023 Inactive diphenhydramine 50 mg tablet RxNorm: 2851564 Take 1 Tablet(s) Oral Q6H every 6 hours as needed 04/06/20 022 Inactive diphenhydramine 50 mg tablet RxNorm: 5809977 1 Tablet(s) Oral Q6H every 6 hours as needed 04/06/20 022 Inactive Abilify 15 mg tablet RxNorm: 406829 1/2 Tablet(s) Oral QD 03/10/20 023 Inactive Shingrix (PF) 50 mcg/0.5 mL intramuscular suspension, kit RxNorm: 6802342 Administer 1/2 Milliliter(s) Intramuscular QD one time shingrix step 2 ( step 1 given 11/04/21) WITH needle - Nursing please administer upon arrival and once administered post a bridge message with date of administration, support assistant, expiration date, and lot# so we can update [facility] 02/18/20 22 022 Inactive dispense with needle Shingrix (PF) 50 mcg/0.5 mL intramuscular suspension, kit RxNorm: 1384951 Administer 1/2 Milliliter(s) Intramuscular QD one time shingrix step 2 ( step 1 given 11/04/21) WITH needle - Nursing please administer upon arrival and once administered post a bridge message with date of administration, support assistant, expiration date, and lot# so we can update [facility] 02/18/20 22 022 Inactive dispense with needle acetaminophen 500 mg tablet RxNorm: 178956 Take 1 Tablet(s) Oral TID 01/08/20 22 023 Active d/c PRN order polyethylene glycol 3350 17 gram/dose oral powder RxNorm: 680814 Take 17=1 capful Gram(s) Oral QD mix with 4-8oz of liquid 01/08/20 22 023 Active take this in addition to BID prn order Lyrica 100 mg capsule RxNorm: 105502 Take 1 Capsule(s) Oral QAM every morning 01/08/20 22 022 Inactive d/c 50mg dose Lyrica 150 mg capsule RxNorm: 404364 Take 1 Capsule(s) Oral QHS every night at bedtime 01/08/20 22 023 Inactive d/c 100mg dose Abilify 5 mg tablet RxNorm: 234860 Take 1 Tablet(s) Oral QD take 1 tab po QD #30 refill 5 dx: MDD 12/12/19 22 022 Inactive Abilify 5 mg tablet RxNorm: 710398 Take 1 Tablet(s) Oral QD take 1 tab po QD #30 refill 5 dx: MDD 12/12/19 22 022 Inactive chlorthalidone 25 mg tablet RxNorm: 095217 Take 1 Tablet(s) Oral QAM every morning 12/10/19 22 023 Active Novolog Flexpen U-100 Insulin aspart 100 unit/mL (3 mL) subcutaneous RxNorm: 1819019 Inject 42 Unit(s) Subcutaneous TID in addition to sliding scale 12/10/19 22 022 Inactive d/c 36u pregabalin 50 mg capsule RxNorm: 075396 Take 1 Capsule(s) Oral QAM every morning 11/12/19 22 022 Inactive tetanus-diphtheria toxoids-Td 2 Lf unit-2 Lf unit/0.5 mL IM suspension RxNorm: 139 Take 0.5 Miscellaneous Intramuscular 11/12/19 22 022 Inactive need tdap - nursing to administer upon arrival pregabalin 50 mg capsule RxNorm: 398078 Take 1 Capsule(s) Oral QAM every morning 10/16/19 22 022 Inactive pregabalin 50 mg capsule RxNorm: 984793 Take 1 Capsule(s) Oral QAM every morning 10/16/19 22 022 Inactive pregabalin 50 mg capsule RxNorm: 306423 1 Capsule(s) Oral QAM every morning 10/15/19 22 022 Inactive Shingrix (PF) 50 mcg/0.5 mL intramuscular suspension, kit RxNorm: 2914883 Administer 1/2 Milliliter(s) Intramuscular one time Nursing please administer upon arrival and once administered post a bridge message with date of administration, support assistant, 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 10/09/19 22 022 Inactive shingrix step 1 Shingrix (PF) 50 mcg/0.5 mL intramuscular suspension, kit RxNorm: 2505396 Administer 1/2 Milliliter(s) Intramuscular one time Nursing please administer upon arrival and once administered post a bridge message with date of administration, support assistant, 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 10/09/19 22 022 Inactive shingrix step 1 cholecalciferol (vitamin D3) 1,250 mcg (50,000 unit) capsule RxNorm: 975876 Take 1 Capsule(s) Oral QW once a [...] aspart 100 unit/mL (3 mL) subcutaneous RxNorm: 5276532 Inject 10 Unit(s) Subcutaneous QHS every night at bedtime with nighttime snack 10/08/19 22 Inactive Shingrix (PF) 50 mcg/0.5 mL intramuscular suspension, kit RxNorm: 1930631 ADMINISTER 2-DOSE SERIES PER CDC GUIDELINES 10/08/19 22 Active Shingrix (PF) 50 mcg/0.5 mL intramuscular suspension, kit RxNorm: 0149703 ADMINISTER 2-DOSE SERIES PER CDC GUIDELINES 10/08/19 22 022 Inactive Novolog Flexpen U-100 Insulin aspart 100 unit/mL (3 mL) subcutaneous RxNorm: 1257458 Inject 36 Unit(s) Subcutaneous TID in addition to sliding scale 10/08/19 Inactive Novofine Autocover 30 gauge x 1/3 needle RxNorm: Use 1 Miscellaneous UD as directed Use 1 needle as directed to administer insulin 5 times a day Dx:E11.42. 10/03/19 Inactive ok to substitute with any covered alternative pen needle benzoyl peroxide 10 % topical cleanser RxNorm: 904328 Apply 1 Application Topical QD apply to face, wash rinse and dry once daily (may change to QOD if drying) 08/19/19 022 Inactive (%covered by insurance) #60ml refill 11 dx: acne benzoyl peroxide 10 % topical cleanser RxNorm: 071369 Apply 1 Application Topical QD apply to face, wash rinse and dry once daily (may change to QOD if drying) 08/19/19 022 Inactive (%covered by insurance) #60ml refill 11 dx: acne benzoyl peroxide 10 % topical cleanser RxNorm: 650995 Apply 1 Application Topical QD apply to face, wash rinse and dry once daily (may change to QOD if drying) 08/19/19 022 Inactive (%covered by insurance) #60ml refill 11 dx: acne Lyrica 50 mg capsule RxNorm: 483710 Take 1 Capsule(s) Oral QAM every morning Take 1 capsule by mouth once daily 08/19/19 Inactive benzoyl peroxide 10 % topical cleanser RxNorm: 419639 Apply 1 Application Topical QD apply to face, wash rinse and dry once daily (may change to QOD if drying) 08/19/19 022 Inactive (%covered by insurance) #60ml refill 11 dx: acne Lyrica 100 mg capsule RxNorm: 557670 Take 1 Capsule(s) Oral QHS every night at bedtime Take 1 capsule by mouth once daily at bedtime 08/19/19 22 Inactive Lyrica 100 mg capsule RxNorm: 572669 Take 1 Capsule(s) Oral QHS every night at bedtime Take 1 capsule by mouth once daily at bedtime 08/16/19 22 022 Inactive Lyrica 50 mg capsule RxNorm: 094409 Take 1 Capsule(s) Oral QAM every morning Take 1 capsule by mouth once daily 08/16/19 22 022 Inactive Levemir FlexTouch U-100 Insulin 100 unit/mL (3 mL) subcutaneous pen RxNorm: 097367 Inject 86 Unit(s) Subcutaneous BID 08/05/19 22 022 Inactive d/c 83units BID Lyrica 100 mg capsule RxNorm: 278036 Take 1 Capsule(s) Oral QHS every night at bedtime Take 1 capsule by mouth once daily at bedtime 07/14/19 22 022 Inactive Lyrica 50 mg capsule RxNorm: 277112 Take 1 Capsule(s) Oral QAM every morning Take 1 capsule by mouth once daily 07/14/19 22 022 Inactive Levemir FlexTouch U-100 Insulin 100 unit/mL (3 mL) subcutaneous pen RxNorm: 294032 Inject 83 Unit(s) Subcutaneous BID 07/08/19 22 [...] 30 mg tablet,extended release 24 hr RxNorm: 599476 Take 1 Tablet(s) Oral QD 05/05/20 No Stop Date Active hydralazine 50 mg tablet RxNorm: 035581 Take 1 Tablet(s) Oral QID 05/05/20 21 Inactive venlafaxine ER 225 mg tablet,extended release 24 hr RxNorm: 169930 Take 1 Tablet(s) Oral QD 05/05/20 21 Inactive venlafaxine ER 225 mg tablet,extended release 24 hr RxNorm: 578419 Take 1 Tablet(s) Oral QD 05/05/20 022 Inactive hydralazine 50 mg tablet RxNorm: 441742 Take 1 Tablet(s) Oral QID 05/05/20 21 Inactive aspirin 81 mg tablet,delayed release RxNorm: 661917 Take 1 Tablet(s) Oral QD 03/31/20 022 Inactive Zetia 10 mg tablet RxNorm: 781017 Take 1 Tablet(s) Oral QD 03/31/20 21 Inactive Vitamin D2 1,250 mcg (50,000 unit) capsule RxNorm: 2336472 Take 1 Capsule(s) Oral QW once a week x 12 weeks 03/31/20 Inactive Vitamin D2 1,250 mcg (50,000 unit) capsule RxNorm: 6877175 Take 1 Capsule(s) Oral QW once a week 03/31/20 Inactive Zetia 10 mg tablet RxNorm: 882254 Take 1 Tablet(s) Oral QD 03/31/20 021 Inactive hydralazine 25 mg tablet RxNorm: 357413 Take 1 Tablet(s) Oral QID 03/31/20 021 Inactive hydralazine 25 mg tablet RxNorm: 615814 Take 1 Tablet(s) Oral QID 03/31/20 021 Inactive hydralazine 10 mg tablet RxNorm: 310452 Take 1 Tablet(s) Oral QID 03/03/20 021 Inactive cephalexin 500 mg tablet RxNorm: 501706 Take 1 Tablet(s) Oral QID 02/27/20 021 Inactive cephalexin 500 mg tablet RxNorm: 019654 Take 1 Tablet(s) Oral QID 02/27/20 021 Inactive lisinopril 40 mg tablet RxNorm: 787860 Take 1 Tablet(s) Oral QD 02/11/20 023 Inactive Eliquis 5 mg tablet RxNorm: 9306911 Take 1 Tablet(s) Oral BID 01/05/20 022 Inactive Eliquis 5 mg tablet RxNorm: 8679242 Take 2 Tablet(s) Oral QD 01/01/20 21 021 Inactive Lyrica 50 mg capsule RxNorm: 988992 Take 1 Capsule(s) Oral QAM every morning 12/24/19 021 Inactive Lyrica 100 mg capsule RxNorm: 726368 Take 1 Capsule(s) Oral QHS every night at bedtime 12/24/19 21 021 Inactive clotrimazole 1 % topical cream RxNorm: 989161 Apply to right foot and toes Topical BID 12/04/19 21 023 Inactive metoprolol succinate ER 200 mg tablet,extended release 24 hr RxNorm: 125697 Take 1 Tablet(s) Oral QD 12/04/19 21 023 Inactive ciprofloxacin 500 mg tablet RxNorm: 409600 Take 1 Tablet(s) Oral QD 11/30/19 21 021 Inactive DX ofloxacin otic drops Accu-Chek Guide test strips RxNorm: USE 1 TO CHECK GLUCOSE 4 TIMES DAILY AND NEEDED 11/15/19 21 023 Inactive Blood Glucose Test strips RxNorm: Use 1 Test Strip QID at PRN 11/05/19 21 023 Inactive E11.42 lisinopril 30 mg tablet RxNorm: 500869 Take 1 Tablet(s) Oral QD 10/30/19 021 Inactive lisinopril 20 mg tablet RxNorm: 676734 Take 1 Tablet(s) Oral QD 10/23/19 21 021 Inactive lisinopril 20 mg tablet RxNorm: 802901 Take 1 Tablet(s) Oral QD 10/23/19 021 Inactive lisinopril 10 mg tablet RxNorm: 209295 Take 1 Tablet(s) Oral QD 10/02/19 021 Inactive icosapent ethyl 1 gram capsule RxNorm: 5715336 Take 2 Capsule(s) (2 gm) Oral BID with meals 09/12/19 022 Inactive Okay to dispense one 2gm tab if you have that available. icosapent ethyl 1 gram capsule RxNorm: 5039168 Take 2 Capsule(s) Oral BID 09/12/19 021 Inactive Okay to dispense one 2gm tab if you have that available. amlodipine 10 mg tablet RxNorm: 776238 Take 1 Tablet(s) Oral QD 09/04/19 022 Inactive aspirin 81 mg tablet,delayed release RxNorm: 469666 Take 1 Tablet(s) Oral QD 09/04/19 21 021 Inactive Levemir FlexTouch U-100 Insulin 100 unit/mL (3 mL) subcutaneous pen RxNorm: 205736 Inject 150 Unit(s) Subcutaneous BID 09/04/19 21 022 Inactive venlafaxine ER 150 mg tablet,extended release 24 hr RxNorm: 800629 Take 1 Tablet(s) Oral QD 09/04/19 21 021 Inactive clotrimazole-betame thasone 1 %-0.05 % topical cream RxNorm: 516260 Apply to rash on red area on left abdomen/chest Topical BID 08/10/19 21 021 Inactive amlodipine 5 mg tablet RxNorm: 142510 Take 1 Tablet(s) Oral QD 07/31/19 Inactive cephalexin 500 mg tablet RxNorm: 516947 Take 1 Tablet(s) Oral BID BID - Twice Daily 07/31/19 21 021 Inactive Start 08/01/20 pantoprazole 40 mg tablet,delayed release RxNorm: 506418 Take 1 Tablet(s) Oral QAM every morning 07/08/19 022 Inactive senna 8.6 mg tablet RxNorm: 959555 Take 1 Tablet(s) Oral QD 07/08/19 022 Inactive pravastatin 80 mg tablet RxNorm: 478394 Take 1 Tablet(s) Oral QHS every night at bedtime 07/08/19 022 Inactive carbamazepine 200 mg tablet RxNorm: 493022 Take 1 Tablet(s) Oral BID 07/08/19 022 Inactive torsemide 20 mg tablet RxNorm: 101571 Take 1 Tablet(s) Oral QD 07/08/19 023 Inactive clopidogrel 75 mg tablet RxNorm: 696423 Take 1 Tablet(s) Oral QD 07/08/19 021 Inactive Blood Glucose Test strips RxNorm: Use 1 Test Strip QID at PRN 07/08/19 Inactive E11.42 Novolog Flexpen U-100 Insulin aspart 100 unit/mL (3 mL) subcutaneous RxNorm: 6078041 Administer per sliding scale Milliliter(s) Subcutaneous TID 151-200: 10 u; 201-250: 20 u; 251-300: 30 u; 301-350: 40 u; 351-400: 50 u. 07/08/19 022 Inactive lisinopril 5 mg tablet RxNorm: 532192 Take 1 Tablet(s) Oral QD 07/08/19 021 Inactive Novolog Flexpen U-100 Insulin aspart 100 unit/mL (3 mL) subcutaneous RxNorm: 1528909 Inject 85 Unit(s) Subcutaneous TID 07/08/19 21 022 Inactive clotrimazole 1 % topical cream RxNorm: 477889 Apply to bilateral groin areas Topical BID 07/08/19 Inactive metoprolol succinate ER 200 mg tablet,extended release 24 hr RxNorm: 428368 Take 1 Tablet(s) Oral QD 07/08/19 021 Inactive Vitamin D3 25 mcg (1,000 unit) tablet RxNorm: 324012 Take 1 Tablet(s) Oral QD 07/08/19 021 Inactive isosorbide dinitrate 30 mg tablet RxNorm: 843913 Take 1 Tablet(s) Oral QD 07/08/19 021 Inactive Levemir FlexTouch U-100 Insulin 100 unit/mL (3 mL) subcutaneous pen RxNorm: 296602 Inject 140 Unit(s) Subcutaneous BID 07/08/19 Inactive venlafaxine 75 mg tablet RxNorm: 626457 Take 1 Tablet(s) Oral QD 07/08/19 021 Inactive acetaminophen 500 mg tablet RxNorm: 322355 Take 1 Tablet(s) Oral TID as needed for headache 06/18/19 021 Inactive acetaminophen 500 mg tablet RxNorm: 066996 Take 1 Tablet(s) Oral TID as needed for headache 06/18/19 021 Inactive Lyrica 100 mg capsule RxNorm: 910313 Take 1 Capsule(s) Oral QHS every night at bedtime 06/11/19 021 Inactive Lyrica 50 mg capsule RxNorm: 663280 Take 1 Capsule(s) Oral QAM every morning 06/10/19 021 Inactive hydrocortisone 2.5 % topical cream RxNorm: 088808 Apply to bilateral groin creases Topical BID 05/15/20 021 Inactive clotrimazole 1 % topical cream RxNorm: 704982 Apply to bilateral groin areas Topical BID 05/15/20 20 021 Inactive Lyrica 50 mg capsule RxNorm: 438615 Take 1 Capsule(s) Oral QAM every morning 05/14/20 020 Inactive Lyrica 100 mg capsule RxNorm: 565160 Take 1 Capsule(s) Oral QHS every night [...] Inactive Nystop 100,000 unit/gram topical powder RxNorm: 558376 Apply to abd folds, under breasts and L side of groin Topical BID x 14 days, then BID PRN 04/08/20 20 021 Inactive dx: yeast dermatitis Lyrica 100 mg capsule RxNorm: 296942 Take 1 Capsule(s) Oral QHS every night at bedtime 03/13/20 20 Inactive Lyrica 50 mg capsule RxNorm: 975599 Take 1 Capsule(s) Oral QAM every morning 03/13/20 20 Inactive ketoconazole 2 % shampoo RxNorm: 825638 Apply Topical two times a week with showers 03/11/20 20 Inactive cholecalciferol (vitamin D3) 50 mcg (2,000 unit) tablet RxNorm: 048274 Take 1 Tablet(s) Oral QD 03/11/20 20 Inactive Zetia 10 mg tablet RxNorm: 155866 Take 1 Tablet(s) Oral QD 03/07/20 20 021 Inactive Zetia 10 mg tablet RxNorm: 039865 Take 1 Tablet(s) Oral QD 03/07/20 20 020 Inactive Lyrica 50 mg capsule RxNorm: 481373 Take 1 Capsule(s) Oral QAM every morning 02/15/20 20 Inactive Lyrica 100 mg capsule RxNorm: 127159 Take 1 Capsule(s) Oral QHS every night at bedtime 02/15/20 20 Inactive Lyrica 100 mg capsule RxNorm: 966971 Take 1 Capsule(s) Oral QHS every night at bedtime 02/15/20 20 Inactive Lyrica 50 mg capsule RxNorm: 037243 Take 1 Capsule(s) Oral QAM every morning 02/15/20 20 Inactive venlafaxine ER 75 mg capsule,extended release 24 hr RxNorm: 490785 Take 3 Capsule(s) Oral QD 06/12/2021 Activepolyethylene glycol 3350 17 gram/dose oral powderRxNorm: 687596Qocq 17=1 capful Gram(s) Oral BID as needed mix with 4-8oz of ijurul9106/12/2021ctive icosapent ethyl 1 gram capsuleRxNorm: 6772418Htog 2 Capsule(s) (2 gm) Oral BID with meals/InactiveOkay to dispense one 2gm tab if you have that available.metoprolol succinate ER 200 mg tablet,extended release 24 hr RxNorm: 827420Oqer 1 Tablet(s) Oral QD08/11/2022ctiveloperamide 2 mg capsule RxNorm: 031036Rdlo 1 Capsule(s) Oral QID as jvgmgt0806/12/2021ctivehydralazine 50 mg tabletRxNorm: 564101Zhjl 1 Tablet(s) Oral QID08/11/2022ctiveLevemir FlexTouch U-100 Insulin 100 unit/mL (3 mL) subcutaneous penRxNorm: 130673Hnippz 80 Unit(s) Subcutaneous BID/InactiveNovolog Flexpen U-100 Insulin aspart 100 unit/mL (3 mL) subcutaneousRxNorm: 9859091Jsoakl 30 Unit(s) Subcutaneous TID with meals/Inactive Medication [...] Codes Status Date Referral: [facility] WPtel: [address], [address] [id number] USReferralRecords Hzysjkcx83/08/2023Referral: [facility] WPtel: [address] [id number]/12/2022Referral: General CardiologyReferralCompleted 1Referral: General PsychologistReferralClosed Instructions Comment [...] Sister Jyotsna involved in his care cell# [phone] Guardian: Don (tapan met in person 09/01/21), now has Lexii (same group as don)Lab Schedule: * 10/06/2022
--- OUTSIDE RECORDS SUMMARY | 2022-11-09 23:40 | XMS_ITS | CCD ---
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 Hot [employer] Supervisor Name Role Phone Tapan Shirley PA-C Primary Care Provider Unavailabl e Tapan Shirley PA-C Chronic Care Management Unavaila ble Summary Purpose DataExchange Insurance Providers Payer name Policy type / Coverage type Covered republican ID Effective Begin Date Effective End Date Medicare [place] Medicare Part B [id number] Unknown Unknown Medicaid [place] Medicare Part B [id number] Unknown Unknown Family history Sister Brittany Suggs Diagnosis Age At Onset No Family Disease Entered N/A Runs in the family Diagnosis Age At Onset No Known Diseases N/A Sister Blanka Mcduffie Diagnosis Age At Onset No Family Disease Entered N/A Social History Social History Element Codes Description Effec tive Dates Marital status Unknown Single 10/07/2021 Living arrangements Unknown [facility] 09/03/[address]: 7227561 Non-Smoker / No History of Smoking 09/02/[address]: 202510202 No Alcohol Consum ption 09/02/2020 Allergies, Adverse Reactions, Alerts Substance Reaction Codes Entered Date Inactivated Date Status LISINOPRIL RxNorm: 4095474No Inactive DateActiveMetformin MNyQbquoke13/28/2020No Inactive DateActive Problems Condition Codes Effective Dates Condition St atus High risk medication use ICD-10: Z79.899 ICD-9: V58.6905/ctiveRecurrent major depressive disorder, in partial remissionICD-10: F33.41 ICD-9: 296.3505/ctiveHyperlipidemia associated with type 2 diabetes mellitusICD-10: E11.69 ICD-9: 250.8004ctiveLower extremity edemaICD-10: R60.0 ICD-9: 782.304/ctiveStage 2 chronic 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ICD-10: E11.22 ICD-9: 250.4004ctiveType 2 diabetes mellitus with diabetic polyneuropathy, with long-term current use of insulinICD-10: E11.42 ICD-9: 250.6004/ctiveAmputated toe of right footICD-10: S98.131A ICD-9: 895.003/ctiveCoronary artery disease involving [place] coronary artery of [place] heart, angina presence unspecifiedICD-10: I25.10 ICD-9: 414.0103/ctiveOnychogryposisICD-10: [...] vascular disease)ICD-10: I73.9 ICD-9: 443.909/2ActiveDepressionICD-10: F32.9 ICD-9: 17388/2ResolvedDVT (deep venous thrombosis)ICD-10: I82.409 ICD-9: 453.4009/2ResolvedEncounter for [...] disabilityICD-10: F81.9 ICD-9: 315.212/1ActiveSkin tagICD-10: L91.8 ICD-9: 701.9111ActiveCallus of heelICD-10: L84 ICD-9: 16235/ctiveImpacted cerumen, left earICD-10: H61.22 ICD-9: 380.408/ctiveContact with [...] Z20.828 ICD-9: V01.7902esolvedHyperhidrosis of palmsICD-10: L74.512 ICD-9: 705.9954KhrvrcSkiduzusCroqdzn21/28/2020ActiveDiabetes mellitus Type 5Eipriak14/28/2020ActiveAnemia in chronic kidney diseaseICD-10: D63.1 02/12/2020ResolvedHyperlipidemia, unspecifiedICD-10: E78.Resolved Medications Medication Codes Instructions Start Date Stop Date Status Fill Instructions aripiprazole 15 mg tablet RxNorm: 341344 1/2 TAB (7.5MG) ORALLY DAILY (DX:MAJOR DEPRESSIVE DISORDER) 09/23/19 023 Active Accu-Chek Guide test strips RxNorm: Use 1 Test Strip QID 09/15/19 23 024 Active ok to substitute with any covered alternative test strip Lancets,Thin 28 gauge RxNorm: Use 1 as directed QID 09/15/1924/2 024 Active torsemide 20 mg tablet RxNorm: 346725 Take 1 Tablet(s) Oral BID 09/09/19 23 024 Active d/c once daily dosing carvedilol 25 mg tablet RxNorm: 804007 Take 1 Tablet(s) Oral QD 08/25/19 23 024 Active pregabalin 150 mg capsule RxNorm: 008156 1 Capsule(s) Oral HS at bed time 08/18/19 23 023 Active pregabalin 100 mg capsule RxNorm: 918363 1 Capsule(s) Oral QAM every morning 08/18/19 23 023 Active lisinopril 20 mg tablet RxNorm: 013085 Give 1 Tablet(s) Oral QD 07/28/19 23 023 Inactive carvedilol 25 mg tablet RxNorm: 148118 1 Tablet(s) Oral QD 07/28/19 23 023 Inactive Lyrica 150 mg capsule RxNorm: 103294 Take 1 Capsule(s) Oral QHS every night at bedtime 07/19/19 023 Inactive d/c 100mg dose Diflucan 150 mg tablet RxNorm: 240850 Take 1 Tablet(s) Oral QD repeat on day 3 and 6 07/19/19 023 Inactive pregabalin 100 mg capsule RxNorm: 447417 Take 1 Capsule(s) Oral QAM every morning 07/19/19 23 023 Inactive Humulin R Regular U-100 Insulin 100 unit/mL injection solution RxNorm: 223429 85 Unit(s) Injection TID 07/13/19 23 023 Inactive gatifloxacin 0.5 % eye drops RxNorm: 354854 Instill 1 Drop(s) as directed TID Instill 1 drop in to affected eye(s) starting 1 day prior to surgery and continue until gone (do not exceed 4 weeks). 07/13/19 23 023 Inactive carvedilol 25 mg tablet RxNorm: 163180 2 Tablet(s) Oral BID 07/13/19 23 023 Inactive ketorolac 0.5 % eye drops RxNorm: 754837 Instill 1 Drop(s) as directed QID Instill 1 drop into affected eye(s) 4 times daily starting 1 day prior to surgery and continue until gone (do not exceed 4 weeks). 07/13/19 23 023 Inactive Diflucan 150 mg tablet RxNorm: 687673 Take 1 Tablet(s) Oral QD repeat on day 3 and 6 06/30/19 23 023 Inactive Accu-Chek Guide test strips RxNorm: Use 1 Test Strip QID Use 1 test strip to monitor blood glucose 4 times daily and as needed. Dx:E11.42. 06/23/19 23 023 Inactive ok to substitute with any covered alternative test strip dextromethorphan-gu aifenesin 10 mg-100 mg/5 mL oral liquid RxNorm: 413665 Take 10 Milliliter(s) Oral every 4 hours as needed for cough 06/19/19 23 023 Inactive dextromethorphan-gu aifenesin 10 mg-100 mg/5 mL oral liquid RxNorm: 819979 Take 10 Milliliter(s) Oral every 4 hours as needed for cough 06/19/19 23 023 Inactive Lyrica 150 mg capsule RxNorm: 881765 Take 1 Capsule(s) Oral QHS every night at bedtime 06/18/19 23 023 Inactive d/c 100mg dose aripiprazole 15 mg tablet RxNorm: 783413 1/2 TAB (7.5MG) ORALLY DAILY (DX:MAJOR DEPRESSIVE DISORDER) 06/05/19 23 023 Inactive pregabalin 100 mg capsule RxNorm: 364559 1 Capsule(s) Oral QAM every morning 06/02/19 23 023 Inactive Banophen 50 mg capsule RxNorm: 9896432 Take 1 Capsule(s) Oral Q6H every 6 hours as needed 05/19/19 23 No Stop Date Active Novolog Flexpen U-100 Insulin aspart 100 unit/mL (3 mL) subcutaneous RxNorm: 9039410 Inject 10 Unit(s) Subcutaneous QHS every night at bedtime with nighttime snack 04/08/20 22 022 Inactive Novolog Flexpen U-100 Insulin aspart 100 unit/mL (3 mL) subcutaneous RxNorm: 3083207 Inject 42 Unit(s) Subcutaneous TID in addition to sliding scale 04/08/20 022 Inactive d/c 36u albuterol sulfate HFA 90 mcg/actuation aerosol inhaler RxNorm: 9613544 Take 2 Puff(s) Inhalation Q4H every four hours as needed as needed for SOB, cough, or wheezing 04/07/20 030 Active Banophen 50 mg capsule RxNorm: 3481842 Take 1 Capsule(s) Oral Q6H every 6 hours as needed 04/06/20 023 Inactive diphenhydramine 50 mg tablet RxNorm: 0744924 Take 1 Tablet(s) Oral Q6H every 6 hours as needed 04/06/20 022 Inactive diphenhydramine 50 mg tablet RxNorm: 3315432 1 Tablet(s) Oral Q6H every 6 hours as needed 04/06/20 022 Inactive Abilify 15 mg tablet RxNorm: 486737 1/2 Tablet(s) Oral QD 03/10/20 023 Inactive Shingrix (PF) 50 mcg/0.5 mL intramuscular suspension, kit RxNorm: 8747754 Administer 1/2 Milliliter(s) Intramuscular QD one time shingrix step 2 ( step 1 given 11/04/21) WITH needle - Nursing please administer upon arrival and once administered post a bridge message with date of administration, dental appliance mechanic, expiration date, and lot# so we can update [facility]IC 02/18/20 22 022 Inactive dispense with needle Shingrix (PF) 50 mcg/0.5 mL intramuscular suspension, kit RxNorm: 8162223 Administer 1/2 Milliliter(s) Intramuscular QD one time shingrix step 2 ( step 1 given 11/04/21) WITH needle - Nursing please administer upon arrival and once administered post a bridge message with date of administration, dental appliance mechanic, expiration date, and lot# so we can update [facility]IC 02/18/20 22 022 Inactive dispense with needle acetaminophen 500 mg tablet RxNorm: 640721 Take 1 Tablet(s) Oral TID 01/08/20 22 023 Active d/c PRN order polyethylene glycol 3350 17 gram/dose oral powder RxNorm: 430639 Take 17=1 capful Gram(s) Oral QD mix with 4-8oz of liquid 01/08/20 22 023 Active take this in addition to BID prn order Lyrica 100 mg capsule RxNorm: 732967 Take 1 Capsule(s) Oral QAM every morning 01/08/20 22 022 Inactive d/c 50mg dose Lyrica 150 mg capsule RxNorm: 106443 Take 1 Capsule(s) Oral QHS every night at bedtime 01/08/20 22 023 Inactive d/c 100mg dose Abilify 5 mg tablet RxNorm: 514643 Take 1 Tablet(s) Oral QD take 1 tab po QD #30 refill 5 dx: MDD 12/12/19 22 022 Inactive Abilify 5 mg tablet RxNorm: 751805 Take 1 Tablet(s) Oral QD take 1 tab po QD #30 refill 5 dx: MDD 12/12/19 22 022 Inactive chlorthalidone 25 mg tablet RxNorm: 744443 Take 1 Tablet(s) Oral QAM every morning 12/10/19 22 023 Active Novolog Flexpen U-100 Insulin aspart 100 unit/mL (3 mL) subcutaneous RxNorm: 3061761 Inject 42 Unit(s) Subcutaneous TID in addition to sliding scale 12/10/19 22 022 Inactive d/c 36u pregabalin 50 mg capsule RxNorm: 130907 Take 1 Capsule(s) Oral QAM every morning 11/12/19 22 022 Inactive tetanus-diphtheria toxoids-Td 2 Lf unit-2 Lf unit/0.5 mL IM suspension RxNorm: 139 Take 0.5 Miscellaneous Intramuscular 11/12/19 22 022 Inactive need tdap - nursing to administer upon arrival pregabalin 50 mg capsule RxNorm: 327285 Take 1 Capsule(s) Oral QAM every morning 10/16/19 22 022 Inactive pregabalin 50 mg capsule RxNorm: 963067 Take 1 Capsule(s) Oral QAM every morning 10/16/19 22 022 Inactive pregabalin 50 mg capsule RxNorm: 309445 1 Capsule(s) Oral QAM every morning 10/15/19 22 Inactive Shingrix (PF) 50 mcg/0.5 mL intramuscular suspension, kit RxNorm: 9481314 Administer 1/2 Milliliter(s) Intramuscular one time Nursing please administer upon arrival and once administered post a bridge message with date of administration, dental appliance mechanic, 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 10/09/19 22 022 Inactive shingrix step 1 Shingrix (PF) 50 mcg/0.5 mL intramuscular suspension, kit RxNorm: 4613643 Administer 1/2 Milliliter(s) Intramuscular one time Nursing please administer upon arrival and once administered post a bridge message with date of administration, dental appliance mechanic, 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 10/09/19 22 022 Inactive shingrix step 1 cholecalciferol (vitamin D3) 1,250 mcg (50,000 unit) capsule RxNorm: 016889 Take 1 Capsule(s) Oral QW once a [...] aspart 100 unit/mL (3 mL) subcutaneous RxNorm: 3841898 Inject 10 Unit(s) Subcutaneous QHS every night at bedtime with nighttime snack 10/08/19 22 022 Inactive Shingrix (PF) 50 mcg/0.5 mL intramuscular suspension, kit RxNorm: 8258032 ADMINISTER 2-DOSE SERIES PER CDC GUIDELINES 10/08/19 22 022 Active Shingrix (PF) 50 mcg/0.5 mL intramuscular suspension, kit RxNorm: 1980630 ADMINISTER 2-DOSE SERIES PER CDC GUIDELINES 10/08/19 Inactive Novolog Flexpen U-100 Insulin aspart 100 unit/mL (3 mL) subcutaneous RxNorm: 5134272 Inject 36 Unit(s) Subcutaneous TID in addition to sliding scale 10/08/19 Inactive Novofine Autocover 30 gauge x 1/3 needle RxNorm: Use 1 Miscellaneous UD as directed Use 1 needle as directed to administer insulin 5 times a day Dx:E11.42. 10/03/19 22 Inactive ok to substitute with any covered alternative pen needle benzoyl peroxide 10 % topical cleanser RxNorm: 799629 Apply 1 Application Topical QD apply to face, wash rinse and dry once daily (may change to QOD if drying) 08/19/19 022 Inactive (%covered by insurance) #60ml refill 11 dx: acne benzoyl peroxide 10 % topical cleanser RxNorm: 140553 Apply 1 Application Topical QD apply to face, wash rinse and dry once daily (may change to QOD if drying) 08/19/19 022 Inactive (%covered by insurance) #60ml refill 11 dx: acne benzoyl peroxide 10 % topical cleanser RxNorm: 630187 Apply 1 Application Topical QD apply to face, wash rinse and dry once daily (may change to QOD if drying) 08/19/19 022 Inactive (%covered by insurance) #60ml refill 11 dx: acne Lyrica 50 mg capsule RxNorm: 864917 Take 1 Capsule(s) Oral QAM every morning Take 1 capsule by mouth once daily 08/19/19 22 022 Inactive benzoyl peroxide 10 % topical cleanser RxNorm: 708936 Apply 1 Application Topical QD apply to face, wash rinse and dry once daily (may change to QOD if drying) 08/19/19 22 022 Inactive (%covered by insurance) #60ml refill 11 dx: acne Lyrica 100 mg capsule RxNorm: 991860 Take 1 Capsule(s) Oral QHS every night at bedtime Take 1 capsule by mouth once daily at bedtime 08/19/19 22 022 Inactive Lyrica 100 mg capsule RxNorm: 831985 Take 1 Capsule(s) Oral QHS every night at bedtime Take 1 capsule by mouth once daily at bedtime 08/16/19 22 022 Inactive Lyrica 50 mg capsule RxNorm: 053361 Take 1 Capsule(s) Oral QAM every morning Take 1 capsule by mouth once daily 08/16/19 22 022 Inactive Levemir FlexTouch U-100 Insulin 100 unit/mL (3 mL) subcutaneous pen RxNorm: 467374 Inject 86 Unit(s) Subcutaneous BID 08/05/19 22 022 Inactive d/c 83units BID Lyrica 100 mg capsule RxNorm: 438155 Take 1 Capsule(s) Oral QHS every night at bedtime Take 1 capsule by mouth once daily at bedtime 07/14/19 22 022 Inactive Lyrica 50 mg capsule RxNorm: 989485 Take 1 Capsule(s) Oral QAM every morning Take 1 capsule by mouth once daily 07/14/19 22 022 Inactive Levemir FlexTouch U-100 Insulin 100 unit/mL (3 mL) subcutaneous pen RxNorm: 817858 Inject 83 Unit(s) Subcutaneous BID 07/08/19 22 [...] 30 mg tablet,extended release 24 hr RxNorm: 727453 Take 1 Tablet(s) Oral QD 05/05/20 No Stop Date Active hydralazine 50 mg tablet RxNorm: 544990 Take 1 Tablet(s) Oral QID 05/05/20 21 022 Inactive venlafaxine ER 225 mg tablet,extended release 24 hr RxNorm: 896986 Take 1 Tablet(s) Oral QD 05/05/20 21 021 Inactive venlafaxine ER 225 mg tablet,extended release 24 hr RxNorm: 009060 Take 1 Tablet(s) Oral QD 05/05/20 21 022 Inactive hydralazine 50 mg tablet RxNorm: 233542 Take 1 Tablet(s) Oral QID 05/05/20 21 021 Inactive aspirin 81 mg tablet,delayed release RxNorm: 737558 Take 1 Tablet(s) Oral QD 03/31/20 21 022 Inactive Zetia 10 mg tablet RxNorm: 226857 Take 1 Tablet(s) Oral QD 03/31/20 21 022 Inactive Vitamin D2 1,250 mcg (50,000 unit) capsule RxNorm: 1757093 Take 1 Capsule(s) Oral QW once a week x 12 weeks 03/31/20 21 022 Inactive Vitamin D2 1,250 mcg (50,000 unit) capsule RxNorm: 2499190 Take 1 Capsule(s) Oral QW once a week 03/31/20 Inactive Zetia 10 mg tablet RxNorm: 849260 Take 1 Tablet(s) Oral QD 03/31/20 Inactive hydralazine 25 mg tablet RxNorm: 968214 Take 1 Tablet(s) Oral QID 03/31/20 021 Inactive hydralazine 25 mg tablet RxNorm: 194725 Take 1 Tablet(s) Oral QID 03/31/20 021 Inactive hydralazine 10 mg tablet RxNorm: 055170 Take 1 Tablet(s) Oral QID 03/03/20 021 Inactive cephalexin 500 mg tablet RxNorm: 293435 Take 1 Tablet(s) Oral QID 02/27/20 021 Inactive cephalexin 500 mg tablet RxNorm: 446095 Take 1 Tablet(s) Oral QID 02/27/20 021 Inactive lisinopril 40 mg tablet RxNorm: 924915 Take 1 Tablet(s) Oral QD 02/11/20 023 Inactive Eliquis 5 mg tablet RxNorm: 9619266 Take 1 Tablet(s) Oral BID 01/05/20 022 Inactive Eliquis 5 mg tablet RxNorm: 0650944 Take 2 Tablet(s) Oral QD 01/01/20 021 Inactive Lyrica 50 mg capsule RxNorm: 321570 Take 1 Capsule(s) Oral QAM every morning 12/24/19 021 Inactive Lyrica 100 mg capsule RxNorm: 641079 Take 1 Capsule(s) Oral QHS every night at bedtime 12/24/19 21 021 Inactive clotrimazole 1 % topical cream RxNorm: 057370 Apply to right foot and toes Topical BID 12/04/19 21 023 Inactive metoprolol succinate ER 200 mg tablet,extended release 24 hr RxNorm: 262680 Take 1 Tablet(s) Oral QD 12/04/19 21 023 Inactive ciprofloxacin 500 mg tablet RxNorm: 308173 Take 1 Tablet(s) Oral QD 11/30/19 21 021 Inactive DX ofloxacin otic drops Accu-Chek Guide test strips RxNorm: USE 1 TO CHECK GLUCOSE 4 TIMES DAILY AND NEEDED 11/15/19 21 023 Inactive Blood Glucose Test strips RxNorm: Use 1 Test Strip QID at PRN 11/05/19 023 Inactive E11.42 lisinopril 30 mg tablet RxNorm: 465537 Take 1 Tablet(s) Oral QD 10/30/19 021 Inactive lisinopril 20 mg tablet RxNorm: 709173 Take 1 Tablet(s) Oral QD 10/23/19 021 Inactive lisinopril 20 mg tablet RxNorm: 445558 Take 1 Tablet(s) Oral QD 10/23/19 021 Inactive lisinopril 10 mg tablet RxNorm: 645769 Take 1 Tablet(s) Oral QD 10/02/19 021 Inactive icosapent ethyl 1 gram capsule RxNorm: 5331142 Take 2 Capsule(s) (2 gm) Oral BID with meals 09/12/19 022 Inactive Okay to dispense one 2gm tab if you have that available. icosapent ethyl 1 gram capsule RxNorm: 5507046 Take 2 Capsule(s) Oral BID 09/12/19 021 Inactive Okay to dispense one 2gm tab if you have that available. amlodipine 10 mg tablet RxNorm: 058738 Take 1 Tablet(s) Oral QD 09/04/19 022 Inactive aspirin 81 mg tablet,delayed release RxNorm: 237150 Take 1 Tablet(s) Oral QD 09/04/19 21 021 Inactive Levemir FlexTouch U-100 Insulin 100 unit/mL (3 mL) subcutaneous pen RxNorm: 434524 Inject 150 Unit(s) Subcutaneous BID 09/04/19 21 022 Inactive venlafaxine ER 150 mg tablet,extended release 24 hr RxNorm: 232643 Take 1 Tablet(s) Oral QD 09/04/19 021 Inactive clotrimazole-betame thasone 1 %-0.05 % topical cream RxNorm: 130619 Apply to rash on red area on left abdomen/chest Topical BID 08/10/19 21 Inactive amlodipine 5 mg tablet RxNorm: 547672 Take 1 Tablet(s) Oral QD 07/31/19 Inactive cephalexin 500 mg tablet RxNorm: 554389 Take 1 Tablet(s) Oral BID BID - Twice Daily 07/31/19 021 Inactive Start 08/01/20 pantoprazole 40 mg tablet,delayed release RxNorm: 136351 Take 1 Tablet(s) Oral QAM every morning 07/08/19 022 Inactive senna 8.6 mg tablet RxNorm: 272899 Take 1 Tablet(s) Oral QD 07/08/19 022 Inactive pravastatin 80 mg tablet RxNorm: 601699 Take 1 Tablet(s) Oral QHS every night at bedtime 07/08/19 022 Inactive carbamazepine 200 mg tablet RxNorm: 430422 Take 1 Tablet(s) Oral BID 07/08/19 022 Inactive torsemide 20 mg tablet RxNorm: 614221 Take 1 Tablet(s) Oral QD 07/08/19 023 Inactive clopidogrel 75 mg tablet RxNorm: 415349 Take 1 Tablet(s) Oral QD 07/08/19 021 Inactive Blood Glucose Test strips RxNorm: Use 1 Test Strip QID at PRN 07/08/19 021 Inactive E11.42 Novolog Flexpen U-100 Insulin aspart 100 unit/mL (3 mL) subcutaneous RxNorm: 2446486 Administer per sliding scale Milliliter(s) Subcutaneous TID 151-200: 10 u; 201-250: 20 u; 251-300: 30 u; 301-350: 40 u; 351-400: 50 u. 07/08/19 21 022 Inactive lisinopril 5 mg tablet RxNorm: 433000 Take 1 Tablet(s) Oral QD 07/08/19 021 Inactive Novolog Flexpen U-100 Insulin aspart 100 unit/mL (3 mL) subcutaneous RxNorm: 3863126 Inject 85 Unit(s) Subcutaneous TID 07/08/19 022 Inactive clotrimazole 1 % topical cream RxNorm: 494137 Apply to bilateral groin areas Topical BID 07/08/19 022 Inactive metoprolol succinate ER 200 mg tablet,extended release 24 hr RxNorm: 384052 Take 1 Tablet(s) Oral QD 07/08/19 21 021 Inactive Vitamin D3 25 mcg (1,000 unit) tablet RxNorm: 258944 Take 1 Tablet(s) Oral QD 07/08/19 021 Inactive isosorbide dinitrate 30 mg tablet RxNorm: 554625 Take 1 Tablet(s) Oral QD 07/08/19 021 Inactive Levemir FlexTouch U-100 Insulin 100 unit/mL (3 mL) subcutaneous pen RxNorm: 759941 Inject 140 Unit(s) Subcutaneous BID 07/08/19 021 Inactive venlafaxine 75 mg tablet RxNorm: 651508 Take 1 Tablet(s) Oral QD 07/08/19 021 Inactive acetaminophen 500 mg tablet RxNorm: 042865 Take 1 Tablet(s) Oral TID as needed for headache 06/18/19 Inactive acetaminophen 500 mg tablet RxNorm: 229207 Take 1 Tablet(s) Oral TID as needed for headache 06/18/19 021 Inactive Lyrica 100 mg capsule RxNorm: 156470 Take 1 Capsule(s) Oral QHS every night at bedtime 06/11/19 021 Inactive Lyrica 50 mg capsule RxNorm: 787942 Take 1 Capsule(s) Oral QAM every morning 06/10/19 021 Inactive hydrocortisone 2.5 % topical cream RxNorm: 053045 Apply to bilateral groin creases Topical BID 05/15/20 20 021 Inactive clotrimazole 1 % topical cream RxNorm: 513087 Apply to bilateral groin areas Topical BID 05/15/20 20 01/12/2 021 Inactive Lyrica 50 mg capsule RxNorm: 986234 Take 1 Capsule(s) Oral QAM every morning 05/14/20 20 Inactive Lyrica 100 mg capsule RxNorm: 399522 Take 1 Capsule(s) Oral QHS every night [...] Inactive Nystop 100,000 unit/gram topical powder RxNorm: 431138 Apply to abd folds, under breasts and L side of groin Topical BID x 14 days, then BID PRN 04/08/20 20 Inactive dx: yeast dermatitis Lyrica 100 mg capsule RxNorm: 379784 Take 1 Capsule(s) Oral QHS every night at bedtime 03/13/20 20 Inactive Lyrica 50 mg capsule RxNorm: 846716 Take 1 Capsule(s) Oral QAM every morning 03/13/20 20 Inactive ketoconazole 2 % shampoo RxNorm: 226180 Apply Topical two times a week with showers 03/11/20 20 Inactive cholecalciferol (vitamin D3) 50 mcg (2,000 unit) tablet RxNorm: 852701 Take 1 Tablet(s) Oral QD 03/11/20 20 Inactive Zetia 10 mg tablet RxNorm: 914173 Take 1 Tablet(s) Oral QD 03/07/20 20 Inactive Zetia 10 mg tablet RxNorm: 406276 Take 1 Tablet(s) Oral QD 03/07/20 20 Inactive Lyrica 50 mg capsule RxNorm: 038097 Take 1 Capsule(s) Oral QAM every morning 02/15/20 20 Inactive Lyrica 100 mg capsule RxNorm: 873122 Take 1 Capsule(s) Oral QHS every night at bedtime 02/15/20 Inactive Lyrica 100 mg capsule RxNorm: 724977 Take 1 Capsule(s) Oral QHS every night at bedtime 02/15/20 Inactive Lyrica 50 mg capsule RxNorm: 809609 Take 1 Capsule(s) Oral QAM every morning 02/15/20 Inactive venlafaxine ER 75 mg capsule,extended release 24 hr RxNorm: 372126 Take 3 Capsule(s) Oral QD 06/12/2021 Activepolyethylene glycol 3350 17 gram/dose oral powderRxNorm: 752551Proz 17=1 capful Gram(s) Oral BID as needed mix with 4-8oz of bndikq7106/12/2021ctive icosapent ethyl 1 gram capsuleRxNorm: 3862947Kcvn 2 Capsule(s) (2 gm) Oral BID with meals/InactiveOkay to dispense one 2gm tab if you have that available.metoprolol succinate ER 200 mg tablet,extended release 24 hr RxNorm: 489355Cytj 1 Tablet(s) Oral QD08/11/2022ctiveloperamide 2 mg capsule RxNorm: 453085Pdqf 1 Capsule(s) Oral QID as trrlng1506/12/2021ctivehydralazine 50 mg tabletRxNorm: 635594Jjnf 1 Tablet(s) Oral QID08/11/2022ctiveLevemir FlexTouch U-100 Insulin 100 unit/mL (3 mL) subcutaneous penRxNorm: 782235Znjrrj 80 Unit(s) Subcutaneous BID07/14//InactiveNovolog Flexpen U-100 Insulin aspart 100 unit/mL (3 mL) subcutaneousRxNorm: 4073981Qizlay 30 Unit(s) Subcutaneous TID with mealsInactive Medication [...] Codes Status Date Referral: [facility] WPtel: [address] , [address] [id number] USReferralRecords Vkkrauha80/08/2023Referral: [facility] WPtel: [address] [id number] QQTidssirgAwtsfasdf83/12/2022Referral: General CardiologyReferralCompleted 1Referral: General PsychologistReferralClosed Instructions Comment Date Leonid is a Male being seen living at [facility]. Initial [facility] visit 01/2020. PMHx including DMII, CAD w/ 5 stents, Depression, Seizure Disorder and CKD stage 3. He moved into [facility] in 12/2019 but after a hospitalization 05/2021 he moved to the [facility] to have closer nursing attention. Sister Jyotsna involved in his care cell# [phone] Guardian: Don (tapan met in person 09/01/21), now has Lexii (same group as don)Lab Schedule: * 10/06/2022
--- OUTSIDE RECORDS SUMMARY | 2022-11-09 23:41 | XMS_ITS | CCD ---
Author Name Tapan Shirley PA-C Address [address] [place] [address] Phone Organization [facility] Phone Care Team Providers Care Nuclear Pharmacist Name Role Phone Tapan Shirley PA-C Primary Care Provider Unavailabl e Tapan Shirley PA-C Chronic Care Management Unavaila ble Summary Purpose DataExchange Insurance Providers Payer name Policy type / Coverage type Covered libertarian ID Effective Begin Date Effective End Date [place] Part B [id number] Unknown Unknown [place] Part B [id number] Unknown Unknown Family history Sister Brittany Suggs Diagnosis Age At Onset No Family Disease Entered N/A Runs in the family Diagnosis Age At Onset No Known Diseases N/A Sister Blanka cMduffie Diagnosis Age At Onset No Family Disease Entered N/A Social History Social History Element Codes Description Effec tive Dates Marital status Unknown Single 10/07/2021 Living arrangements Unknown [facility] 09/03/[address]: 5887636 Non-Smoker / No History of Smoking 09/02/[address]: 180967808 No Alcohol Consum ption 09/02/2020 Allergies, Adverse Reactions, Alerts Substance Reaction Codes Entered Date Inactivated Date Status LISINOPRIL RxNorm: 1439964No Inactive DateActiveMetformin EIdZoabzyi04/28/2020No Inactive DateActive Problems Condition Codes Effective Dates Condition St atus Constipation by delayed colonic transit ICD-10: K59.01 ICD-9: 564.01010/06/2022ctiveHyperlipidemia associated with type 2 diabetes mellitusICD-10: E11.69 ICD-9: 250.80010/06/2022ctiveHypertensive heart disease without heart failure ICD-10: I11.9 ICD-9: 402.90010/06/2022ctiveLower extremity edemaICD-10: R60.0 ICD-9: 782.305/ctivePain of right heelICD-10: M79.671 ICD-9: 729.505/ctiveStage 2 chronic 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ICD-10: E11.22 ICD-9: 250.4005/ctiveType 2 diabetes mellitus with diabetic polyneuropathy, with long-term current use of insulinICD-10: E11.42 ICD-9: 250.6005/ctiveHigh risk medication useICD-10: Z79.899 ICD-9: V58.6905/ctiveRecurrent major depressive disorder, in partial remissionICD-10: F33.41 ICD-9: 296.3505/ctiveAmputated toe of right footICD-10: S98.131A ICD-9: 895.003/ctiveCoronary artery disease involving choctaw coronary artery of choctaw heart, angina presence unspecifiedICD-10: I25.10 ICD-9: 414.0103/ctiveOnychogryposisICD-10: L60.2 ICD-9: 703.803/ctivePre-op evaluationICD-10: Z01.818 ICD-9: V72.8403/ctiveSecondary hypertensionICD-10: I15.9 ICD-9: 405.9903/ctiveCandidiasis, intertrigoICD-10: B37.2 ICD-9: 112.302/ctiveMajor depression, recurrentICD-10: F33.9 ICD-9: 296.3002/ctiveVitamin D deficiencyICD-10: E55.9 ICD-9: 268.912/ctiveShortness of breathICD-10: R06.02 ICD-9: 786.0511/ctiveSeizure disorderICD-10: G40.909 ICD-9: 345.9011/ctiveCellulitisICD-10: L03.90 ICD-9: 682.910/25/2022ActiveReducible umbilical herniaICD-10: K42.9 ICD-9: 553.110/2ActiveBMI 60.0-69.9, adultICD-10: Z68.44 ICD-9: V85.4410/ctiveInappropriate sexual behaviorICD-10: Z72.89 ICD-9: 312.8910/ctiveHx of deep venous thrombosisICD-10: Z86.718 ICD-9: V12.5109/ctiveHypercoagulable stateICD-10: D68.59 ICD-9: 289.8109/ctiveParaparesis of both lower limbsICD-10: G82.20 ICD-9: 344.109ctivePVD (peripheral vascular disease)ICD-10: I73.9 ICD-9: 443.909/ctiveDepressionICD-10: F32.9 ICD-9: 218172ResolvedDVT (deep venous thrombosis)ICD-10: I82.409 ICD-9: 453.4009/2ResolvedEncounter for immunizationICD-10: Z23 ICD-9: V03.89092ResolvedLong term (current) use of insulinICD-10: Z79.4 2ResolvedMuscular painICD-10: M79.10 ICD-9: 729.1092ResolvedDandruff in adultICD-10: L21.0 ICD-9: 690.1808ctiveHypertension associated with diabetesICD-10: E11.59 ICD-9: 250.80082ResolvedHistory of anemia due to CKDICD-10: N18.9 ICD-9: 585.907/2ActiveStage 2 chronic kidney diseaseICD-10: N18.2 ICD-9: 585.2072ActiveGout due to renal impairmentICD-10: M10.30 ICD-9: 274.1006/28/2022ActivePreventative health careICD-10: Z00.00 ICD-9: V70.006/2ActiveLearning disabilityICD-10: F81.9 ICD-9: 315.212/ctiveSkin tagICD-10: L91.8 ICD-9: 701.911/ctiveCallus of heelICD-10: L84 ICD-9: 88896/ctiveImpacted cerumen, left earICD-10: H61.22 ICD-9: 380.408/ctiveContact with [...] Z20.828 ICD-9: V01.7902esolvedHyperhidrosis of palmsICD-10: L74.512 ICD-9: 705.3937PngfsoIchgoysmNxxdgka04/28/2020ActiveDiabetes mellitus Type 0Ghygygl67/28/2020ActiveAnemia in chronic kidney diseaseICD-10: D63.1 02/12/2020ResolvedHyperlipidemia, unspecifiedICD-10: E78.509Resolved Medications Medication Codes Instructions Start Date Stop Date Status Fill Instructions Levemir FlexPen 100 unit/mL (3 mL) solution subcutaneous insulin pen RxNorm: 371640 Inject 30 Unit(s) Subcutaneous BID 10/07/19 024 Active Humulin R U-500 (Concentrated) Insulin 500 unit/mL subcutaneous soln RxNorm: 551927 Inject 100 Unit(s) Subcutaneous TID 10/07/19 024 Active Ozempic 0.25 mg or 0.5 mg (2 mg/3 mL) subcutaneous pen injector RxNorm: 2755183 Inject 1/2 Milligram(s) Subcutaneous QW once a week 10/07/19 024 Active aripiprazole 15 mg tablet RxNorm: 861232 1/2 TAB (7.5MG) ORALLY DAILY (DX:MAJOR DEPRESSIVE DISORDER) 09/23/19 023 Active Accu-Chek Guide test strips RxNorm: Use 1 Test Strip QID 09/15/19 024 Active ok to substitute with any covered alternative test strip Lancets,Thin 28 gauge RxNorm: Use 1 as directed QID 09/15/19 024 Active torsemide 20 mg tablet RxNorm: 785857 Take 1 Tablet(s) Oral BID 09/09/19 024 Active d/c once daily dosing carvedilol 25 mg tablet RxNorm: 977510 Take 1 Tablet(s) Oral QD 08/25/19 024 Active pregabalin 150 mg capsule RxNorm: 616269 1 Capsule(s) Oral HS at bed time 08/18/19 023 Active pregabalin 100 mg capsule RxNorm: 575581 1 Capsule(s) Oral QAM every morning 08/18/19 023 Active carvedilol 25 mg tablet RxNorm: 214186 1 Tablet(s) Oral QD 07/28/19 23 023 Inactive lisinopril 20 mg tablet RxNorm: 065973 Give 1 Tablet(s) Oral QD 07/28/19 23 023 Inactive Lyrica 150 mg capsule RxNorm: 900504 Take 1 Capsule(s) Oral QHS every night at bedtime 07/19/19 023 Inactive d/c 100mg dose Diflucan 150 mg tablet RxNorm: 958251 Take 1 Tablet(s) Oral QD repeat on day 3 and 6 07/19/19 23 023 Inactive pregabalin 100 mg capsule RxNorm: 909611 Take 1 Capsule(s) Oral QAM every morning 07/19/19 23 023 Inactive gatifloxacin 0.5 % eye drops RxNorm: 506545 Instill 1 Drop(s) as directed TID Instill 1 drop in to affected eye(s) starting 1 day prior to surgery and continue until gone (do not exceed 4 weeks). 07/13/19 23 023 Inactive carvedilol 25 mg tablet RxNorm: 406892 2 Tablet(s) Oral BID 07/13/19 23 023 Inactive Humulin R Regular U-100 Insulin 100 unit/mL injection solution RxNorm: 296244 85 Unit(s) Injection TID 07/13/19 23 023 Inactive ketorolac 0.5 % eye drops RxNorm: 146411 Instill 1 Drop(s) as directed QID Instill 1 drop into affected eye(s) 4 times daily starting 1 day prior to surgery and continue until gone (do not exceed 4 weeks). 07/13/19 23 023 Inactive Diflucan 150 mg tablet RxNorm: 889757 Take 1 Tablet(s) Oral QD repeat on day 3 and 6 06/30/19 23 023 Inactive Accu-Chek Guide test strips RxNorm: Use 1 Test Strip QID Use 1 test strip to monitor blood glucose 4 times daily and as needed. Dx:E11.42. 06/23/19 23 023 Inactive ok to substitute with any covered alternative test strip dextromethorphan-gu aifenesin 10 mg-100 mg/5 mL oral liquid RxNorm: 627206 Take 10 Milliliter(s) Oral every 4 hours as needed for cough 06/19/19 23 023 Inactive dextromethorphan-gu aifenesin 10 mg-100 mg/5 mL oral liquid RxNorm: 285543 Take 10 Milliliter(s) Oral every 4 hours as needed for cough 06/19/19 23 023 Inactive Lyrica 150 mg capsule RxNorm: 163212 Take 1 Capsule(s) Oral QHS every night at bedtime 06/18/19 023 Inactive d/c 100mg dose aripiprazole 15 mg tablet RxNorm: 481426 1/2 TAB (7.5MG) ORALLY DAILY (DX:MAJOR DEPRESSIVE DISORDER) 06/05/19 23 023 Inactive pregabalin 100 mg capsule RxNorm: 417731 1 Capsule(s) Oral QAM every morning 06/02/19 023 Inactive Banophen 50 mg capsule RxNorm: 0888336 Take 1 Capsule(s) Oral Q6H every 6 hours as needed 05/19/19 No Stop Date Active Novolog Flexpen U-100 Insulin aspart 100 unit/mL (3 mL) subcutaneous RxNorm: 3433484 Inject 10 Unit(s) Subcutaneous QHS every night at bedtime with nighttime snack 04/08/20 022 Inactive Novolog Flexpen U-100 Insulin aspart 100 unit/mL (3 mL) subcutaneous RxNorm: 2572254 Inject 42 Unit(s) Subcutaneous TID in addition to sliding scale 04/08/20 022 Inactive d/c 36u albuterol sulfate HFA 90 mcg/actuation aerosol inhaler RxNorm: 7153303 Take 2 Puff(s) Inhalation Q4H every four hours as needed as needed for SOB, cough, or wheezing 04/07/20 030 Active Banophen 50 mg capsule RxNorm: 2833010 Take 1 Capsule(s) Oral Q6H every 6 hours as needed 04/06/20 023 Inactive diphenhydramine 50 mg tablet RxNorm: 7221058 Take 1 Tablet(s) Oral Q6H every 6 hours as needed 04/06/20 22 022 Inactive diphenhydramine 50 mg tablet RxNorm: 2277534 1 Tablet(s) Oral Q6H every 6 hours as needed 04/06/20 22 022 Inactive Abilify 15 mg tablet RxNorm: 318668 /2 Tablet(s) Oral QD 03/10/20 22 023 Inactive Shingrix (PF) 50 mcg/0.5 mL intramuscular suspension, kit RxNorm: 3718252 Administer 1/2 Milliliter(s) Intramuscular QD one time shingrix step 2 ( step 1 given 11/04/21) WITH needle - Nursing please administer upon arrival and once administered post a bridge message with date of administration, budget consultant, expiration date, and lot# so we can update [facility] 02/18/20 22 022 Inactive dispense with needle Shingrix (PF) 50 mcg/0.5 mL intramuscular suspension, kit RxNorm: 2022027 Administer 1/2 Milliliter(s) Intramuscular QD one time shingrix step 2 ( step 1 given 11/04/21) WITH needle - Nursing please administer upon arrival and once administered post a bridge message with date of administration, budget consultant, expiration date, and lot# so we can update [facility] 02/18/20 22 022 Inactive dispense with needle acetaminophen 500 mg tablet RxNorm: 043725 Take 1 Tablet(s) Oral TID 01/08/20 22 023 Active d/c PRN order polyethylene glycol 3350 17 gram/dose oral powder RxNorm: 772885 Take 17=1 capful Gram(s) Oral QD mix with 4-8oz of liquid 01/08/20 22 023 Active take this in addition to BID prn order Lyrica 100 mg capsule RxNorm: 070979 Take 1 Capsule(s) Oral QAM every morning 01/08/20 22 022 Inactive d/c 50mg dose Lyrica 150 mg capsule RxNorm: 990019 Take 1 Capsule(s) Oral QHS every night at bedtime 01/08/20 22 023 Inactive d/c 100mg dose Abilify 5 mg tablet RxNorm: 144440 Take 1 Tablet(s) Oral QD take 1 tab po QD #30 refill 5 dx: MDD 12/12/19 22 022 Inactive Abilify 5 mg tablet RxNorm: 294501 Take 1 Tablet(s) Oral QD take 1 tab po QD #30 refill 5 dx: MDD 12/12/19 22 022 Inactive chlorthalidone 25 mg tablet RxNorm: 702481 Take 1 Tablet(s) Oral QAM every morning 12/10/19 22 023 Active Novolog Flexpen U-100 Insulin aspart 100 unit/mL (3 mL) subcutaneous RxNorm: 9646635 Inject 42 Unit(s) Subcutaneous TID in addition to sliding scale 12/10/19 22 022 Inactive d/c 36u pregabalin 50 mg capsule RxNorm: 456460 Take 1 Capsule(s) Oral QAM every morning 11/12/19 22 022 Inactive tetanus-diphtheria toxoids-Td 2 Lf unit-2 Lf unit/0.5 mL IM suspension RxNorm: 139 Take 0.5 Miscellaneous Intramuscular 11/12/19 22 022 Inactive need tdap - nursing to administer upon arrival pregabalin 50 mg capsule RxNorm: 127323 Take 1 Capsule(s) Oral QAM every morning 10/16/19 22 022 Inactive pregabalin 50 mg capsule RxNorm: 787445 Take 1 Capsule(s) Oral QAM every morning 10/16/19 22 022 Inactive pregabalin 50 mg capsule RxNorm: 780309 1 Capsule(s) Oral QAM every morning 10/15/19 22 022 Inactive Shingrix (PF) 50 mcg/0.5 mL intramuscular suspension, kit RxNorm: 4909767 Administer 1/2 Milliliter(s) Intramuscular one time Nursing please administer upon arrival and once administered post a bridge message with date of administration, budget consultant, 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 10/09/19 22 022 Inactive shingrix step 1 Shingrix (PF) 50 mcg/0.5 mL intramuscular suspension, kit RxNorm: 5279209 Administer 1/2 Milliliter(s) Intramuscular one time Nursing please administer upon arrival and once administered post a bridge message with date of administration, budget consultant, 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 10/09/19 22 022 Inactive shingrix step 1 cholecalciferol (vitamin D3) 1,250 mcg (50,000 unit) capsule RxNorm: 005322 Take 1 Capsule(s) Oral QW once a [...] aspart 100 unit/mL (3 mL) subcutaneous RxNorm: 1421797 Inject 10 Unit(s) Subcutaneous QHS every night at bedtime with nighttime snack 10/08/19 22 Inactive Shingrix (PF) 50 mcg/0.5 mL intramuscular suspension, kit RxNorm: 0234043 ADMINISTER 2-DOSE SERIES PER CDC GUIDELINES 10/08/19 22 Active Shingrix (PF) 50 mcg/0.5 mL intramuscular suspension, kit RxNorm: 8185118 ADMINISTER 2-DOSE SERIES PER CDC GUIDELINES 10/08/19 22 Inactive Novolog Flexpen U-100 Insulin aspart 100 unit/mL (3 mL) subcutaneous RxNorm: 9211575 Inject 36 Unit(s) Subcutaneous TID in addition to sliding scale 10/08/19 22 Inactive Novofine Autocover 30 gauge x 1/3 needle RxNorm: Use 1 Miscellaneous UD as directed Use 1 needle as directed to administer insulin 5 times a day Dx:E11.42. 10/03/19 Inactive ok to substitute with any covered alternative pen needle benzoyl peroxide 10 % topical cleanser RxNorm: 672133 Apply 1 Application Topical QD apply to face, wash rinse and dry once daily (may change to QOD if drying) 08/19/19 22 Inactive (%covered by insurance) #60ml refill 11 dx: acne benzoyl peroxide 10 % topical cleanser RxNorm: 680207 Apply 1 Application Topical QD apply to face, wash rinse and dry once daily (may change to QOD if drying) 08/19/19 22 022 Inactive (%covered by insurance) #60ml refill 11 dx: acne benzoyl peroxide 10 % topical cleanser RxNorm: 301579 Apply 1 Application Topical QD apply to face, wash rinse and dry once daily (may change to QOD if drying) 08/19/19 22 022 Inactive (%covered by insurance) #60ml refill 11 dx: acne Lyrica 50 mg capsule RxNorm: 596862 Take 1 Capsule(s) Oral QAM every morning Take 1 capsule by mouth once daily 08/19/19 22 Inactive benzoyl peroxide 10 % topical cleanser RxNorm: 893128 Apply 1 Application Topical QD apply to face, wash rinse and dry once daily (may change to QOD if drying) 08/19/19 22 022 Inactive (%covered by insurance) #60ml refill 11 dx: acne Lyrica 100 mg capsule RxNorm: 399687 Take 1 Capsule(s) Oral QHS every night at bedtime Take 1 capsule by mouth once daily at bedtime 08/19/19 Inactive Lyrica 100 mg capsule RxNorm: 542366 Take 1 Capsule(s) Oral QHS every night at bedtime Take 1 capsule by mouth once daily at bedtime 08/16/19 Inactive Lyrica 50 mg capsule RxNorm: 149374 Take 1 Capsule(s) Oral QAM every morning Take 1 capsule by mouth once daily 08/16/19 Inactive Levemir FlexTouch U-100 Insulin 100 unit/mL (3 mL) subcutaneous pen RxNorm: 167421 Inject 86 Unit(s) Subcutaneous BID 08/05/19 22 Inactive d/c 83units BID Lyrica 100 mg capsule RxNorm: 256004 Take 1 Capsule(s) Oral QHS every night at bedtime Take 1 capsule by mouth once daily at bedtime 07/14/19 22 022 Inactive Lyrica 50 mg capsule RxNorm: 659073 Take 1 Capsule(s) Oral QAM every morning Take 1 capsule by mouth once daily 07/14/19 22 Inactive Levemir FlexTouch U-100 Insulin 100 unit/mL (3 mL) subcutaneous pen RxNorm: 941312 Inject 83 Unit(s) Subcutaneous BID 07/08/19 22 [...] 30 mg tablet,extended release 24 hr RxNorm: 607131 Take 1 Tablet(s) Oral QD 05/05/20 No Stop Date Active hydralazine 50 mg tablet RxNorm: 758673 Take 1 Tablet(s) Oral QID 05/05/20 21 022 Inactive venlafaxine ER 225 mg tablet,extended release 24 hr RxNorm: 613870 Take 1 Tablet(s) Oral QD 05/05/20 21 021 Inactive venlafaxine ER 225 mg tablet,extended release 24 hr RxNorm: 099578 Take 1 Tablet(s) Oral QD 05/05/20 022 Inactive hydralazine 50 mg tablet RxNorm: 806737 Take 1 Tablet(s) Oral QID 05/05/20 021 Inactive aspirin 81 mg tablet,delayed release RxNorm: 078576 Take 1 Tablet(s) Oral QD 03/31/20 022 Inactive Zetia 10 mg tablet RxNorm: 815733 Take 1 Tablet(s) Oral QD 03/31/20 Inactive Vitamin D2 1,250 mcg (50,000 unit) capsule RxNorm: 2264687 Take 1 Capsule(s) Oral QW once a week x 12 weeks 03/31/20 Inactive Vitamin D2 1,250 mcg (50,000 unit) capsule RxNorm: 0201650 Take 1 Capsule(s) Oral QW once a week 03/31/20 021 Inactive Zetia 10 mg tablet RxNorm: 518789 Take 1 Tablet(s) Oral QD 03/31/20 Inactive hydralazine 25 mg tablet RxNorm: 075529 Take 1 Tablet(s) Oral QID 03/31/20 021 Inactive hydralazine 25 mg tablet RxNorm: 853177 Take 1 Tablet(s) Oral QID 03/31/20 021 Inactive hydralazine 10 mg tablet RxNorm: 461472 Take 1 Tablet(s) Oral QID 03/03/20 021 Inactive cephalexin 500 mg tablet RxNorm: 408149 Take 1 Tablet(s) Oral QID 02/27/20 021 Inactive cephalexin 500 mg tablet RxNorm: 887949 Take 1 Tablet(s) Oral QID 02/27/20 021 Inactive lisinopril 40 mg tablet RxNorm: 298565 Take 1 Tablet(s) Oral QD 02/11/20 023 Inactive Eliquis 5 mg tablet RxNorm: 2352421 Take 1 Tablet(s) Oral BID 01/05/20 022 Inactive Eliquis 5 mg tablet RxNorm: 8587392 Take 2 Tablet(s) Oral QD 01/01/20 21 021 Inactive Lyrica 50 mg capsule RxNorm: 740696 Take 1 Capsule(s) Oral QAM every morning 12/24/19 021 Inactive Lyrica 100 mg capsule RxNorm: 278820 Take 1 Capsule(s) Oral QHS every night at bedtime 12/24/19 021 Inactive clotrimazole 1 % topical cream RxNorm: 840202 Apply to right foot and toes Topical BID 12/04/19 21 023 Inactive metoprolol succinate ER 200 mg tablet,extended release 24 hr RxNorm: 608192 Take 1 Tablet(s) Oral QD 12/04/19 023 Inactive ciprofloxacin 500 mg tablet RxNorm: 314336 Take 1 Tablet(s) Oral QD 11/30/19 021 Inactive DX ofloxacin otic drops Accu-Chek Guide test strips RxNorm: USE 1 TO CHECK GLUCOSE 4 TIMES DAILY AND NEEDED 11/15/19 023 Inactive Blood Glucose Test strips RxNorm: Use 1 Test Strip QID at PRN 11/05/19 21 023 Inactive E11.42 lisinopril 30 mg tablet RxNorm: 948560 Take 1 Tablet(s) Oral QD 10/30/19 021 Inactive lisinopril 20 mg tablet RxNorm: 569220 Take 1 Tablet(s) Oral QD 10/23/19 021 Inactive lisinopril 20 mg tablet RxNorm: 113210 Take 1 Tablet(s) Oral QD 10/23/19 21 021 Inactive lisinopril 10 mg tablet RxNorm: 632390 Take 1 Tablet(s) Oral QD 10/02/19 21 021 Inactive icosapent ethyl 1 gram capsule RxNorm: 5759522 Take 2 Capsule(s) (2 gm) Oral BID with meals 09/12/19 Inactive Okay to dispense one 2gm tab if you have that available. icosapent ethyl 1 gram capsule RxNorm: 6850395 Take 2 Capsule(s) Oral BID 09/12/19 21 021 Inactive Okay to dispense one 2gm tab if you have that available. amlodipine 10 mg tablet RxNorm: 209154 Take 1 Tablet(s) Oral QD 09/04/19 022 Inactive aspirin 81 mg tablet,delayed release RxNorm: 064294 Take 1 Tablet(s) Oral QD 09/04/19 021 Inactive Levemir FlexTouch U-100 Insulin 100 unit/mL (3 mL) subcutaneous pen RxNorm: 789406 Inject 150 Unit(s) Subcutaneous BID 09/04/19 21 022 Inactive venlafaxine ER 150 mg tablet,extended release 24 hr RxNorm: 631205 Take 1 Tablet(s) Oral QD 09/04/19 Inactive clotrimazole-betame thasone 1 %-0.05 % topical cream RxNorm: 653214 Apply to rash on red area on left abdomen/chest Topical BID 08/10/19 Inactive amlodipine 5 mg tablet RxNorm: 687040 Take 1 Tablet(s) Oral QD 07/31/19 Inactive cephalexin 500 mg tablet RxNorm: 992719 Take 1 Tablet(s) Oral BID BID - Twice Daily 07/31/19 021 Inactive Start 08/01/20 pantoprazole 40 mg tablet,delayed release RxNorm: 498172 Take 1 Tablet(s) Oral QAM every morning 07/08/19 022 Inactive senna 8.6 mg tablet RxNorm: 241787 Take 1 Tablet(s) Oral QD 07/08/19 022 Inactive pravastatin 80 mg tablet RxNorm: 818227 Take 1 Tablet(s) Oral QHS every night at bedtime 07/08/19 022 Inactive carbamazepine 200 mg tablet RxNorm: 253660 Take 1 Tablet(s) Oral BID 07/08/19 022 Inactive clopidogrel 75 mg tablet RxNorm: 345228 Take 1 Tablet(s) Oral QD 07/08/19 021 Inactive Blood Glucose Test strips RxNorm: Use 1 Test Strip QID at PRN 07/08/19 21 Inactive E11.42 Novolog Flexpen U-100 Insulin aspart 100 unit/mL (3 mL) subcutaneous RxNorm: 8515474 Administer per sliding scale Milliliter(s) Subcutaneous TID 151-200: 10 u; 201-250: 20 u; 251-300: 30 u; 301-350: 40 u; 351-400: 50 u. 07/08/19 022 Inactive lisinopril 5 mg tablet RxNorm: 681615 Take 1 Tablet(s) Oral QD 07/08/19 021 Inactive Novolog Flexpen U-100 Insulin aspart 100 unit/mL (3 mL) subcutaneous RxNorm: 2060343 Inject 85 Unit(s) Subcutaneous TID 07/08/19 022 Inactive clotrimazole 1 % topical cream RxNorm: 592458 Apply to bilateral groin areas Topical BID 07/08/19 21 022 Inactive metoprolol succinate ER 200 mg tablet,extended release 24 hr RxNorm: 461687 Take 1 Tablet(s) Oral QD 07/08/19 Inactive Vitamin D3 25 mcg (1,000 unit) tablet RxNorm: 145668 Take 1 Tablet(s) Oral QD 07/08/19 021 Inactive isosorbide dinitrate 30 mg tablet RxNorm: 164820 Take 1 Tablet(s) Oral QD 07/08/19 021 Inactive Levemir FlexTouch U-100 Insulin 100 unit/mL (3 mL) subcutaneous pen RxNorm: 557779 Inject 140 Unit(s) Subcutaneous BID 07/08/19 21 021 Inactive torsemide 20 mg tablet RxNorm: 035891 Take 1 Tablet(s) Oral QD 07/08/19 21 023 Inactive venlafaxine 75 mg tablet RxNorm: 099019 Take 1 Tablet(s) Oral QD 02/ 021 Inactive acetaminophen 500 mg tablet RxNorm: 094798 Take 1 Tablet(s) Oral TID as needed for headache 06/18/19 21 021 Inactive acetaminophen 500 mg tablet RxNorm: 148556 Take 1 Tablet(s) Oral TID as needed for headache 06/18/19 21 021 Inactive Lyrica 100 mg capsule RxNorm: 607903 Take 1 Capsule(s) Oral QHS every night at bedtime 06/11/19 21 021 Inactive Lyrica 50 mg capsule RxNorm: 263989 Take 1 Capsule(s) Oral QAM every morning 06/10/19 21 021 Inactive hydrocortisone 2.5 % topical cream RxNorm: 112813 Apply to bilateral groin creases Topical BID 05/15/20 20 021 Inactive clotrimazole 1 % topical cream RxNorm: 638410 Apply to bilateral groin areas Topical BID 05/15/20 20 021 Inactive Lyrica 50 mg capsule RxNorm: 568193 Take 1 Capsule(s) Oral QAM every morning 05/14/20 20 020 Inactive Lyrica 100 mg capsule RxNorm: 891597 Take 1 Capsule(s) Oral QHS every night [...] Inactive Nystop 100,000 unit/gram topical powder RxNorm: 231378 Apply to abd folds, under breasts and L side of groin Topical BID x 14 days, then BID PRN 04/08/20 20 Inactive dx: yeast dermatitis Lyrica 100 mg capsule RxNorm: 910687 Take 1 Capsule(s) Oral QHS every night at bedtime 03/13/20 20 Inactive Lyrica 50 mg capsule RxNorm: 536390 Take 1 Capsule(s) Oral QAM every morning 03/13/20 20 Inactive ketoconazole 2 % shampoo RxNorm: 225249 Apply Topical two times a week with showers 03/11/20 20 Inactive cholecalciferol (vitamin D3) 50 mcg (2,000 unit) tablet RxNorm: 701224 Take 1 Tablet(s) Oral QD 03/11/20 20 Inactive Zetia 10 mg tablet RxNorm: 308609 Take 1 Tablet(s) Oral QD 03/07/20 20 Inactive Zetia 10 mg tablet RxNorm: 071667 Take 1 Tablet(s) Oral QD 03/07/20 20 Inactive Lyrica 50 mg capsule RxNorm: 358181 Take 1 Capsule(s) Oral QAM every morning 02/15/20 20 Inactive Lyrica 100 mg capsule RxNorm: 128930 Take 1 Capsule(s) Oral QHS every night at bedtime 02/15/20 20 Inactive Lyrica 100 mg capsule RxNorm: 385256 Take 1 Capsule(s) Oral QHS every night at bedtime 02/15/20 20 Inactive Lyrica 50 mg capsule RxNorm: 229302 Take 1 Capsule(s) Oral QAM every morning 02/15/20 20 Inactive venlafaxine ER 75 mg capsule,extended release 24 hr RxNorm: 311473 Take 3 Capsule(s) Oral QD 06/12/2021 Activepolyethylene glycol 3350 17 gram/dose oral powderRxNorm: 836635Ykui 17=1 capful Gram(s) Oral BID as needed mix with 4-8oz of fkoxca1706/12/2021ctive metoprolol succinate ER 200 mg tablet,extended release 24 hrRxNorm: 228261Rpfe 1 Tablet(s) Oral QD08/11/2022ctiveloperamide 2 mg capsuleRxNorm: 954827Qfbl 1 Capsule(s) Oral QID as xrctny8506/12/2021ctivehydralazine 50 mg tabletRxNorm: 674817Xaup 1 Tablet(s) Oral QID08/11/2022ctiveicosapent ethyl 1 gram capsule RxNorm: 9949840Lbpw 2 Capsule(s) (2 gm) Oral BID with meals10/06// InactiveOkay to dispense one 2gm tab if you have that available.Levemir FlexTouch U-100 Insulin 100 unit/mL (3 mL) subcutaneous penRxNorm: 102228Wgejyw 80 Unit(s) Subcutaneous BID07/14//InactiveNovolog Flexpen U-100 Insulin aspart 100 unit/mL (3 mL) subcutaneousRxNorm: 8851913Behugj 30 Unit(s) Subcutaneous TID with meals/Inactive Medication [...] CVX: [id number] Procedures Procedure Codes Date CUI BP LESS 90 CPT-4: G8754 10/06/2022 SYS BP LESS 140 CPT-4: G8752 10/06/2022 Vital Signs Date Vital 10/06/2022 Blood Pressure 1: 136/72 Code: 8480-6 Heart Rate 1: 88 bpm Code: 8867-4 Height: 5'5 Code: 8302-2 Respiratory Rate: 17 bpm SpO2: 97% Temperature: 36.2 (C) / 97.2 (F) Reason For Visit No Reason For Visit data Encounters Encounter Performer Location Location Address Codes Cristiano e ([id number]) Home or Residence Vi sit Est Pt - Moderate Level, 40 mins Diagnosis: Hyperlipidemia associated with type 2 diabetes mellitus[ICD10: E11.69] Diagnosis: Stage 2 chronic 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[ICD10: E11.22] Diagnosis: Type 2 diabetes mellitus with diabetic polyneuropathy, with long-term current use of insulin[ICD10: E11.42] Diagnosis: Lower extremity edema[ICD10: R60.0] Diagnosis: Constipation by delayed colonic transit[ICD10: K59.01] Diagnosis: Pain of right heel[ICD10: M79.671] Diagnosis: Hypertensive heart disease without heart failure[ICD10: I11.9]Tapan ShirleyThe [place] on [id number] [place] [id number]-0: [id number] 10/06/2022 Plan of Care Planned Activity Notes Codes Status Date Patient Education: Patient Medication Summary Bcfosubdj59/23/2023atient Education: Influenza DarycyxLcndtuzqv75/23/2023 Referral: [facility] WPtel: [address], [address] [id number] USReferralRecords Qkjhaayd15/08/2023ppointment: Tapan Shirley WPtel: [address] [facility] [address] [id number] [place]/08/11/2022ppointment: Tapan Shirley WPtel: [address] [facility] [address] [id number] [place]/07/14/2022ppointment: Tapan Shirley WPtel: [address] [facility] [address] [id number] USF/U02Referral: [facility] WPtel: [address] [id number] TUFtevvhwkLjmeoxxeo55/12/2022Referral: General CardiologyReferralCompleted 1Referral: General PsychologistReferralClosed Instructions Comment Date Leonid is a Male being seen living at [facility]. Initial BPS visit 01/2020. PMHx including DMII, CAD w/ 5 stents, Depression, Seizure Disorder and CKD stage 3. He moved into [facility] in 12/2019 but after a hospitalization 05/2021 he moved to the [facility] to have closer nursing attention. Sister Jyotsna involved in his care cell# [phone] Guardian: Don (tapan met in person 09/01/21), now has Lexii (same group as don)Lab Schedule: Mar-/September* 10/06/2022 Diabetes Now closely followed by endo - defer tx plan to thrm. 09/2020 a1c 11.2H. Hypertension BPs running high the past few days. Since he is now followed by nephro (last appt earlier this month), advised nurse to fax BP log to them for review. Patient is currently asymptomatic.?? Edema Edema improved since last visit. Cintinue torsemide 20mg bid. 09/2022 K 4.1nl.?? Constipation seen in ED for this, now on laxatives and BMs soft and daily. Pain of right heel Appears consistent with plantar fascitis. Reviewed exercises/stretches he can try. If no improvement or pain worsens, staff to update on bridge.?? .10/06/2022
--- OUTSIDE RECORDS SUMMARY | 2022-11-09 23:41 | XMS_ITS | CCD ---
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 Station Jailer Name Role Phone Tapan Shirley PA-C Primary Care Provider Unavailabl e Tapan Shirley PA-C Chronic Care Management Unavaila ble Summary Purpose DataExchange Insurance Providers Payer name Policy type / Coverage type Covered democrat ID Effective Begin Date Effective End Date Medicare PA Medicare Part B [id number] Unknown Unknown Medicaid [place] Medicare Part B [id number] Unknown Unknown Family history Sister Brittany Suggs [...] Nursing Home 09/03/[address]: 5504254 Non-Smoker / No History of Smoking 09/02/[address]: 904980330 No Alcohol Consum ption 09/02/2020 Allergies, Adverse Reactions, Alerts Substance Reaction Codes Entered Date Inactivated Date Status LISINOPRIL RxNorm: 5091270No Inactive DateActiveMetformin GEvFywgbgo71/28/2020No Inactive DateActive Problems Condition Codes Effective Dates Condition St atus Constipation by delayed colonic transit ICD-10: K59.01 ICD-9: 564.0105/ctiveHyperlipidemia associated with type 2 diabetes mellitusICD-10: E11.69 ICD-9: 250.8005ctiveHypertensive heart disease without heart failure ICD-10: I11.9 ICD-9: 402.9005/ctiveLower extremity edemaICD-10: R60.0 ICD-9: 782.305/ctivePain of right heelICD-10: M79.671 ICD-9: 729.505/ctiveStage 2 chronic 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ICD-10: E11.22 ICD-9: 250.4005/ctiveType 2 diabetes mellitus with diabetic polyneuropathy, with long-term current use of insulinICD-10: E11.42 ICD-9: 250.6005/ctiveHigh risk medication useICD-10: Z79.899 ICD-9: V58.69009/15/2022ctiveRecurrent major depressive disorder, in partial remissionICD-10: F33.41 ICD-9: 296.3505/ctiveAmputated toe of right footICD-10: S98.131A ICD-9: 895.003/ctiveCoronary artery disease involving [place] coronary artery of [place] heart, angina presence unspecifiedICD-10: I25.10 ICD-9: 414.0103/ctiveOnychogryposisICD-10: [...] vascular disease)ICD-10: I73.9 ICD-9: 443.909/ctiveDepressionICD-10: F32.9 ICD-9: 10532/2ResolvedDVT (deep venous thrombosis)ICD-10: I82.409 ICD-9: 453.4009/2ResolvedEncounter for immunizationICD-10: Z23 ICD-9: V03.89092ResolvedLong term (current) use of insulinICD-10: Z79.4 2ResolvedMuscular painICD-10: M79.10 ICD-9: 729.1092ResolvedDandruff in adultICD-10: L21.0 ICD-9: 690.1808ctiveHypertension associated with diabetesICD-10: E11.59 ICD-9: 250.80082ResolvedHistory of anemia due to CKDICD-10: N18.9 ICD-9: 585.907/2ActiveStage 2 chronic kidney diseaseICD-10: N18.2 ICD-9: 585.2072ActiveGout due to renal impairmentICD-10: M10.30 ICD-9: 274.1006/ctivePreventative health careICD-10: Z00.00 ICD-9: V70.006/ctiveLearning disabilityICD-10: F81.9 ICD-9: 315.2121ActiveSkin tagICD-10: L91.8 ICD-9: 701.911/1ActiveCallus of heelICD-10: L84 ICD-9: 518401ActiveImpacted cerumen, left earICD-10: H61.22 ICD-9: 380.408/ctiveContact with [...] Z20.828 ICD-9: V01.7902esolvedHyperhidrosis of palmsICD-10: L74.512 ICD-9: 705.2664WbdwpmSgwddtysWsocewh98/28/2020ActiveDiabetes mellitus Type 4Obgvooc12/28/2020ActiveAnemia in chronic kidney diseaseICD-10: D63.1 02/12/2020ResolvedHyperlipidemia, unspecifiedICD-10: E78.509Resolved Medications Medication Codes Instructions Start Date Stop Date Status Fill Instructions Levemir FlexPen 100 unit/mL (3 mL) solution subcutaneous insulin pen RxNorm: 706441 Inject 30 Unit(s) Subcutaneous BID 10/07/19 23 05 024 Active Humulin R U-500 (Concentrated) Insulin 500 unit/mL subcutaneous soln RxNorm: 840418 Inject 100 Unit(s) Subcutaneous TID 10/07/19 024 Active Ozempic 0.25 mg or 0.5 mg (2 mg/3 mL) subcutaneous pen injector RxNorm: 3666548 Inject 1/2 Milligram(s) Subcutaneous QW once a week 10/07/19 024 Active aripiprazole 15 mg tablet RxNorm: 794524 1/2 TAB (7.5MG) ORALLY DAILY (DX:MAJOR DEPRESSIVE DISORDER) 09/23/19 023 Active Accu-Chek Guide test strips RxNorm: Use 1 Test Strip QID 09/15/19 024 Active ok to substitute with any covered alternative test strip Lancets,Thin 28 gauge RxNorm: Use 1 as directed QID 09/15/19 024 Active torsemide 20 mg tablet RxNorm: 889772 Take 1 Tablet(s) Oral BID 09/09/19 024 Active d/c once daily dosing carvedilol 25 mg tablet RxNorm: 209584 Take 1 Tablet(s) Oral QD 08/25/19 024 Active pregabalin 150 mg capsule RxNorm: 772888 1 Capsule(s) Oral HS at bed time 08/18/19 023 Active pregabalin 100 mg capsule RxNorm: 789873 1 Capsule(s) Oral QAM every morning 08/18/19 023 Active carvedilol 25 mg tablet RxNorm: 606387 1 Tablet(s) Oral QD 07/28/19 023 Inactive lisinopril 20 mg tablet RxNorm: 816561 Give 1 Tablet(s) Oral QD 07/28/19 23 023 Inactive Lyrica 150 mg capsule RxNorm: 553905 Take 1 Capsule(s) Oral QHS every night at bedtime 07/19/19 023 Inactive d/c 100mg dose Diflucan 150 mg tablet RxNorm: 458981 Take 1 Tablet(s) Oral QD repeat on day 3 and 6 07/19/19 23 023 Inactive pregabalin 100 mg capsule RxNorm: 141608 Take 1 Capsule(s) Oral QAM every morning 07/19/19 23 023 Inactive gatifloxacin 0.5 % eye drops RxNorm: 527790 Instill 1 Drop(s) as directed TID Instill 1 drop in to affected eye(s) starting 1 day prior to surgery and continue until gone (do not exceed 4 weeks). 07/13/19 23 023 Inactive carvedilol 25 mg tablet RxNorm: 892533 2 Tablet(s) Oral BID 07/13/19 23 023 Inactive Humulin R Regular U-100 Insulin 100 unit/mL injection solution RxNorm: 445752 85 Unit(s) Injection TID 07/13/19 23 023 Inactive ketorolac 0.5 % eye drops RxNorm: 260435 Instill 1 Drop(s) as directed QID Instill 1 drop into affected eye(s) 4 times daily starting 1 day prior to surgery and continue until gone (do not exceed 4 weeks). 07/13/19 023 Inactive Diflucan 150 mg tablet RxNorm: 586294 Take 1 Tablet(s) Oral QD repeat on day 3 and 6 06/30/19 23 023 Inactive Accu-Chek Guide test strips RxNorm: Use 1 Test Strip QID Use 1 test strip to monitor blood glucose 4 times daily and as needed. Dx:E11.42. 06/23/19 23 023 Inactive ok to substitute with any covered alternative test strip dextromethorphan-gu aifenesin 10 mg-100 mg/5 mL oral liquid RxNorm: 283555 Take 10 Milliliter(s) Oral every 4 hours as needed for cough 06/19/19 23 023 Inactive dextromethorphan-gu aifenesin 10 mg-100 mg/5 mL oral liquid RxNorm: 822889 Take 10 Milliliter(s) Oral every 4 hours as needed for cough 06/19/19 23 023 Inactive Lyrica 150 mg capsule RxNorm: 202691 Take 1 Capsule(s) Oral QHS every night at bedtime 06/18/19 23 023 Inactive d/c 100mg dose aripiprazole 15 mg tablet RxNorm: 946957 /2 TAB (7.5MG) ORALLY DAILY (DX:MAJOR DEPRESSIVE DISORDER) 06/05/19 023 Inactive pregabalin 100 mg capsule RxNorm: 342278 1 Capsule(s) Oral QAM every morning 06/02/19 023 Inactive Banophen 50 mg capsule RxNorm: 5180572 Take 1 Capsule(s) Oral Q6H every 6 hours as needed 05/19/19 23 No Stop Date Active Novolog Flexpen U-100 Insulin aspart 100 unit/mL (3 mL) subcutaneous RxNorm: 7193158 Inject 10 Unit(s) Subcutaneous QHS every night at bedtime with nighttime snack 04/08/20 022 Inactive Novolog Flexpen U-100 Insulin aspart 100 unit/mL (3 mL) subcutaneous RxNorm: 4305399 Inject 42 Unit(s) Subcutaneous TID in addition to sliding scale 04/08/20 022 Inactive d/c 36u albuterol sulfate HFA 90 mcg/actuation aerosol inhaler RxNorm: 8821537 Take 2 Puff(s) Inhalation Q4H every four hours as needed as needed for SOB, cough, or wheezing 04/07/20 030 Active Banophen 50 mg capsule RxNorm: 0909419 Take 1 Capsule(s) Oral Q6H every 6 hours as needed 04/06/20 023 Inactive diphenhydramine 50 mg tablet RxNorm: 8013463 Take 1 Tablet(s) Oral Q6H every 6 hours as needed 04/06/20 22 022 Inactive diphenhydramine 50 mg tablet RxNorm: 2494429 1 Tablet(s) Oral Q6H every 6 hours as needed 04/06/20 22 022 Inactive Abilify 15 mg tablet RxNorm: 804629 1/2 Tablet(s) Oral QD 03/10/20 22 023 Inactive Shingrix (PF) 50 mcg/0.5 mL intramuscular suspension, kit RxNorm: 5008857 Administer 1/2 Milliliter(s) Intramuscular QD one time shingrix step 2 ( step 1 given 11/04/21) WITH needle - Nursing please administer upon arrival and once administered post a bridge message with date of administration, rn birthing, expiration date, and lot# so we can update [facility] 02/18/20 22 022 Inactive dispense with needle Shingrix (PF) 50 mcg/0.5 mL intramuscular suspension, kit RxNorm: 3251080 Administer 1/2 Milliliter(s) Intramuscular QD one time shingrix step 2 ( step 1 given 11/04/21) WITH needle - Nursing please administer upon arrival and once administered post a bridge message with date of administration, rn birthing, expiration date, and lot# so we can update [facility] 02/18/20 22 022 Inactive dispense with needle acetaminophen 500 mg tablet RxNorm: 156477 Take 1 Tablet(s) Oral TID 01/08/20 22 023 Active d/c PRN order polyethylene glycol 3350 17 gram/dose oral powder RxNorm: 513745 Take 17=1 capful Gram(s) Oral QD mix with 4-8oz of liquid 01/08/20 22 023 Active take this in addition to BID prn order Lyrica 100 mg capsule RxNorm: 413566 Take 1 Capsule(s) Oral QAM every morning 01/08/20 22 022 Inactive d/c 50mg dose Lyrica 150 mg capsule RxNorm: 057120 Take 1 Capsule(s) Oral QHS every night at bedtime 01/08/20 22 023 Inactive d/c 100mg dose Abilify 5 mg tablet RxNorm: 272733 Take 1 Tablet(s) Oral QD take 1 tab po QD #30 refill 5 dx: MDD 12/12/19 22 022 Inactive Abilify 5 mg tablet RxNorm: 380442 Take 1 Tablet(s) Oral QD take 1 tab po QD #30 refill 5 dx: MDD 12/12/19 22 022 Inactive chlorthalidone 25 mg tablet RxNorm: 361118 Take 1 Tablet(s) Oral QAM every morning 12/10/19 22 023 Active Novolog Flexpen U-100 Insulin aspart 100 unit/mL (3 mL) subcutaneous RxNorm: 1339261 Inject 42 Unit(s) Subcutaneous TID in addition to sliding scale 12/10/19 22 022 Inactive d/c 36u pregabalin 50 mg capsule RxNorm: 641539 Take 1 Capsule(s) Oral QAM every morning 11/12/19 22 Inactive tetanus-diphtheria toxoids-Td 2 Lf unit-2 Lf unit/0.5 mL IM suspension RxNorm: 139 Take 0.5 Miscellaneous Intramuscular 11/12/19 22 Inactive need tdap - nursing to administer upon arrival pregabalin 50 mg capsule RxNorm: 613780 Take 1 Capsule(s) Oral QAM every morning 10/16/19 22 022 Inactive pregabalin 50 mg capsule RxNorm: 421174 Take 1 Capsule(s) Oral QAM every morning 10/16/19 22 Inactive pregabalin 50 mg capsule RxNorm: 324274 1 Capsule(s) Oral QAM every morning 10/15/19 22 022 Inactive Shingrix (PF) 50 mcg/0.5 mL intramuscular suspension, kit RxNorm: 8569884 Administer 1/2 Milliliter(s) Intramuscular one time Nursing please administer upon arrival and once administered post a bridge message with date of administration, rn birthing, 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 10/09/19 22 022 Inactive shingrix step 1 Shingrix (PF) 50 mcg/0.5 mL intramuscular suspension, kit RxNorm: 5542862 Administer 1/2 Milliliter(s) Intramuscular one time Nursing please administer upon arrival and once administered post a bridge message with date of administration, rn birthing, 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 10/09/19 22 022 Inactive shingrix step 1 cholecalciferol (vitamin D3) 1,250 mcg (50,000 unit) capsule RxNorm: 207215 Take 1 Capsule(s) Oral QW once a [...] aspart 100 unit/mL (3 mL) subcutaneous RxNorm: 0408076 Inject 10 Unit(s) Subcutaneous QHS every night at bedtime with nighttime snack 10/08/19 22 Inactive Shingrix (PF) 50 mcg/0.5 mL intramuscular suspension, kit RxNorm: 4670189 ADMINISTER 2-DOSE SERIES PER CDC GUIDELINES 10/08/19 22 Active Shingrix (PF) 50 mcg/0.5 mL intramuscular suspension, kit RxNorm: 4457346 ADMINISTER 2-DOSE SERIES PER CDC GUIDELINES 10/08/19 22 Inactive Novolog Flexpen U-100 Insulin aspart 100 unit/mL (3 mL) subcutaneous RxNorm: 0597235 Inject 36 Unit(s) Subcutaneous TID in addition to sliding scale 10/08/19 22 Inactive Novofine Autocover 30 gauge x 1/3 needle RxNorm: Use 1 Miscellaneous UD as directed Use 1 needle as directed to administer insulin 5 times a day Dx:E11.42. 10/03/19 Inactive ok to substitute with any covered alternative pen needle benzoyl peroxide 10 % topical cleanser RxNorm: 092335 Apply 1 Application Topical QD apply to face, wash rinse and dry once daily (may change to QOD if drying) 08/19/19 22 022 Inactive (%covered by insurance) #60ml refill 11 dx: acne benzoyl peroxide 10 % topical cleanser RxNorm: 727018 Apply 1 Application Topical QD apply to face, wash rinse and dry once daily (may change to QOD if drying) 08/19/19 22 022 Inactive (%covered by insurance) #60ml refill 11 dx: acne benzoyl peroxide 10 % topical cleanser RxNorm: 210572 Apply 1 Application Topical QD apply to face, wash rinse and dry once daily (may change to QOD if drying) 08/19/19 22 022 Inactive (%covered by insurance) #60ml refill 11 dx: acne Lyrica 50 mg capsule RxNorm: 605928 Take 1 Capsule(s) Oral QAM every morning Take 1 capsule by mouth once daily 08/19/19 22 022 Inactive benzoyl peroxide 10 % topical cleanser RxNorm: 034444 Apply 1 Application Topical QD apply to face, wash rinse and dry once daily (may change to QOD if drying) 08/19/19 22 022 Inactive (%covered by insurance) #60ml refill 11 dx: acne Lyrica 100 mg capsule RxNorm: 437068 Take 1 Capsule(s) Oral QHS every night at bedtime Take 1 capsule by mouth once daily at bedtime 08/19/19 22 022 Inactive Lyrica 100 mg capsule RxNorm: 740903 Take 1 Capsule(s) Oral QHS every night at bedtime Take 1 capsule by mouth once daily at bedtime 08/16/19 22 022 Inactive Lyrica 50 mg capsule RxNorm: 784236 Take 1 Capsule(s) Oral QAM every morning Take 1 capsule by mouth once daily 08/16/19 22 022 Inactive Levemir FlexTouch U-100 Insulin 100 unit/mL (3 mL) subcutaneous pen RxNorm: 021569 Inject 86 Unit(s) Subcutaneous BID 08/05/19 22 022 Inactive d/c 83units BID Lyrica 100 mg capsule RxNorm: 197341 Take 1 Capsule(s) Oral QHS every night at bedtime Take 1 capsule by mouth once daily at bedtime 07/14/19 22 022 Inactive Lyrica 50 mg capsule RxNorm: 757148 Take 1 Capsule(s) Oral QAM every morning Take 1 capsule by mouth once daily 07/14/19 22 022 Inactive Levemir FlexTouch U-100 Insulin 100 unit/mL (3 mL) subcutaneous pen RxNorm: 485940 Inject 83 Unit(s) Subcutaneous BID 07/08/19 22 [...] 30 mg tablet,extended release 24 hr RxNorm: 420781 Take 1 Tablet(s) Oral QD 05/05/20 No Stop Date Active hydralazine 50 mg tablet RxNorm: 405845 Take 1 Tablet(s) Oral QID 05/05/20 21 022 Inactive venlafaxine ER 225 mg tablet,extended release 24 hr RxNorm: 337162 Take 1 Tablet(s) Oral QD 05/05/20 21 021 Inactive venlafaxine ER 225 mg tablet,extended release 24 hr RxNorm: 950289 Take 1 Tablet(s) Oral QD 05/05/20 022 Inactive hydralazine 50 mg tablet RxNorm: 615708 Take 1 Tablet(s) Oral QID 05/05/20 Inactive aspirin 81 mg tablet,delayed release RxNorm: 788747 Take 1 Tablet(s) Oral QD 03/31/20 Inactive Zetia 10 mg tablet RxNorm: 640379 Take 1 Tablet(s) Oral QD 03/31/20 Inactive Vitamin D2 1,250 mcg (50,000 unit) capsule RxNorm: 0917648 Take 1 Capsule(s) Oral QW once a week x 12 weeks 03/31/20 Inactive Vitamin D2 1,250 mcg (50,000 unit) capsule RxNorm: 0088749 Take 1 Capsule(s) Oral QW once a week 03/31/20 Inactive Zetia 10 mg tablet RxNorm: 160408 Take 1 Tablet(s) Oral QD 03/31/20 021 Inactive hydralazine 25 mg tablet RxNorm: 618360 Take 1 Tablet(s) Oral QID 03/31/20 021 Inactive hydralazine 25 mg tablet RxNorm: 450554 Take 1 Tablet(s) Oral QID 03/31/20 021 Inactive hydralazine 10 mg tablet RxNorm: 744240 Take 1 Tablet(s) Oral QID 03/03/20 021 Inactive cephalexin 500 mg tablet RxNorm: 954177 Take 1 Tablet(s) Oral QID 02/27/20 021 Inactive cephalexin 500 mg tablet RxNorm: 772329 Take 1 Tablet(s) Oral QID 02/27/20 021 Inactive lisinopril 40 mg tablet RxNorm: 476290 Take 1 Tablet(s) Oral QD 02/11/20 023 Inactive Eliquis 5 mg tablet RxNorm: 4608568 Take 1 Tablet(s) Oral BID 01/05/20 21 022 Inactive Eliquis 5 mg tablet RxNorm: 9944972 Take 2 Tablet(s) Oral QD 01/01/20 21 021 Inactive Lyrica 50 mg capsule RxNorm: 957235 Take 1 Capsule(s) Oral QAM every morning 12/24/19 21 021 Inactive Lyrica 100 mg capsule RxNorm: 432985 Take 1 Capsule(s) Oral QHS every night at bedtime 12/24/19 21 021 Inactive clotrimazole 1 % topical cream RxNorm: 009324 Apply to right foot and toes Topical BID 12/04/19 21 023 Inactive metoprolol succinate ER 200 mg tablet,extended release 24 hr RxNorm: 506471 Take 1 Tablet(s) Oral QD 12/04/19 21 023 Inactive ciprofloxacin 500 mg tablet RxNorm: 762477 Take 1 Tablet(s) Oral QD 11/30/19 21 021 Inactive DX ofloxacin otic drops Accu-Chek Guide test strips RxNorm: USE 1 TO CHECK GLUCOSE 4 TIMES DAILY AND NEEDED 11/15/19 21 023 Inactive Blood Glucose Test strips RxNorm: Use 1 Test Strip QID at PRN 11/05/19 21 023 Inactive E11.42 lisinopril 30 mg tablet RxNorm: 174813 Take 1 Tablet(s) Oral QD 10/30/19 021 Inactive lisinopril 20 mg tablet RxNorm: 834725 Take 1 Tablet(s) Oral QD 10/23/19 21 021 Inactive lisinopril 20 mg tablet RxNorm: 895733 Take 1 Tablet(s) Oral QD 10/23/19 21 021 Inactive lisinopril 10 mg tablet RxNorm: 509212 Take 1 Tablet(s) Oral QD 10/02/19 21 021 Inactive icosapent ethyl 1 gram capsule RxNorm: 0989717 Take 2 Capsule(s) (2 gm) Oral BID with meals 09/12/19 21 022 Inactive Okay to dispense one 2gm tab if you have that available. icosapent ethyl 1 gram capsule RxNorm: 1996925 Take 2 Capsule(s) Oral BID 09/12/19 Inactive Okay to dispense one 2gm tab if you have that available. amlodipine 10 mg tablet RxNorm: 633961 Take 1 Tablet(s) Oral QD 09/04/19 Inactive aspirin 81 mg tablet,delayed release RxNorm: 101384 Take 1 Tablet(s) Oral QD 09/04/19 Inactive Levemir FlexTouch U-100 Insulin 100 unit/mL (3 mL) subcutaneous pen RxNorm: 492584 Inject 150 Unit(s) Subcutaneous BID 09/04/19 022 Inactive venlafaxine ER 150 mg tablet,extended release 24 hr RxNorm: 780104 Take 1 Tablet(s) Oral QD 09/04/19 Inactive clotrimazole-betame thasone 1 %-0.05 % topical cream RxNorm: 056573 Apply to rash on red area on left abdomen/chest Topical BID 08/10/19 Inactive amlodipine 5 mg tablet RxNorm: 529649 Take 1 Tablet(s) Oral QD 07/31/19 Inactive cephalexin 500 mg tablet RxNorm: 634222 Take 1 Tablet(s) Oral BID BID - Twice Daily 07/31/19 021 Inactive Start 08/01/20 pantoprazole 40 mg tablet,delayed release RxNorm: 804064 Take 1 Tablet(s) Oral QAM every morning 07/08/19 022 Inactive senna 8.6 mg tablet RxNorm: 658967 Take 1 Tablet(s) Oral QD 07/08/19 022 Inactive pravastatin 80 mg tablet RxNorm: 444931 Take 1 Tablet(s) Oral QHS every night at bedtime 07/08/19 Inactive carbamazepine 200 mg tablet RxNorm: 301294 Take 1 Tablet(s) Oral BID 07/08/19 022 Inactive clopidogrel 75 mg tablet RxNorm: 623972 Take 1 Tablet(s) Oral QD 07/08/19 021 Inactive Blood Glucose Test strips RxNorm: Use 1 Test Strip QID at PRN 07/08/19 21 021 Inactive E11.42 Novolog Flexpen U-100 Insulin aspart 100 unit/mL (3 mL) subcutaneous RxNorm: 2527169 Administer per sliding scale Milliliter(s) Subcutaneous TID 151-200: 10 u; 201-250: 20 u; 251-300: 30 u; 301-350: 40 u; 351-400: 50 u. 07/08/19 21 022 Inactive lisinopril 5 mg tablet RxNorm: 974833 Take 1 Tablet(s) Oral QD 07/08/19 21 021 Inactive Novolog Flexpen U-100 Insulin aspart 100 unit/mL (3 mL) subcutaneous RxNorm: 6003994 Inject 85 Unit(s) Subcutaneous TID 07/08/19 022 Inactive clotrimazole 1 % topical cream RxNorm: 052185 Apply to bilateral groin areas Topical BID 07/08/19 21 022 Inactive metoprolol succinate ER 200 mg tablet,extended release 24 hr RxNorm: 613438 Take 1 Tablet(s) Oral QD 07/08/19 21 021 Inactive Vitamin D3 25 mcg (1,000 unit) tablet RxNorm: 118794 Take 1 Tablet(s) Oral QD 07/08/19 021 Inactive isosorbide dinitrate 30 mg tablet RxNorm: 002321 Take 1 Tablet(s) Oral QD 07/08/19 021 Inactive Levemir FlexTouch U-100 Insulin 100 unit/mL (3 mL) subcutaneous pen RxNorm: 035659 Inject 140 Unit(s) Subcutaneous BID 07/08/19 021 Inactive torsemide 20 mg tablet RxNorm: 379467 Take 1 Tablet(s) Oral QD 07/08/19 023 Inactive venlafaxine 75 mg tablet RxNorm: 179461 Take 1 Tablet(s) Oral QD 07/08/19 021 Inactive acetaminophen 500 mg tablet RxNorm: 802439 Take 1 Tablet(s) Oral TID as needed for headache 06/18/19 21 021 Inactive acetaminophen 500 mg tablet RxNorm: Take 1 Tablet(s) Oral TID as needed for headache 06/18/19 21 021 Inactive Lyrica 100 mg capsule RxNorm: 989448 Take 1 Capsule(s) Oral QHS every night at bedtime 06/11/19 21 021 Inactive Lyrica 50 mg capsule RxNorm: 332148 Take 1 Capsule(s) Oral QAM every morning 06/10/19 21 021 Inactive hydrocortisone 2.5 % topical cream RxNorm: 601987 Apply to bilateral groin creases Topical BID 05/15/20 20 021 Inactive clotrimazole 1 % topical cream RxNorm: 778930 Apply to bilateral groin areas Topical BID 05/15/20 20 021 Inactive Lyrica 50 mg capsule RxNorm: 794625 Take 1 Capsule(s) Oral QAM every morning 05/14/20 20 020 Inactive Lyrica 100 mg capsule RxNorm: 935363 Take 1 Capsule(s) Oral QHS every night [...] Inactive Nystop 100,000 unit/gram topical powder RxNorm: 921204 Apply to abd folds, under breasts and L side of groin Topical BID x 14 days, then BID PRN 04/08/20 20 021 Inactive dx: yeast dermatitis Lyrica 100 mg capsule RxNorm: 605833 Take 1 Capsule(s) Oral QHS every night at bedtime 03/13/20 20 Inactive Lyrica 50 mg capsule RxNorm: 178735 Take 1 Capsule(s) Oral QAM every morning 03/13/20 20 Inactive ketoconazole 2 % shampoo RxNorm: 671860 Apply Topical two times a week with showers 03/11/20 20 Inactive cholecalciferol (vitamin D3) 50 mcg (2,000 unit) tablet RxNorm: 455912 Take 1 Tablet(s) Oral QD 03/11/20 20 Inactive Zetia 10 mg tablet RxNorm: 224121 Take 1 Tablet(s) Oral QD 03/07/20 20 Inactive Zetia 10 mg tablet RxNorm: 104039 Take 1 Tablet(s) Oral QD 03/07/20 20 Inactive Lyrica 50 mg capsule RxNorm: 954583 Take 1 Capsule(s) Oral QAM every morning 02/15/20 20 Inactive Lyrica 100 mg capsule RxNorm: 125947 Take 1 Capsule(s) Oral QHS every night at bedtime 02/15/20 20 Inactive Lyrica 100 mg capsule RxNorm: 506848 Take 1 Capsule(s) Oral QHS every night at bedtime 02/15/20 20 Inactive Lyrica 50 mg capsule RxNorm: 521163 Take 1 Capsule(s) Oral QAM every morning 02/15/20 20 Inactive venlafaxine ER 75 mg capsule,extended release 24 hr RxNorm: 845950 Take 3 Capsule(s) Oral QD 06/12/2021 Activepolyethylene glycol 3350 17 gram/dose oral powderRxNorm: 300276Tfmj 17=1 capful Gram(s) Oral BID as needed mix with 4-8oz of ghijsh3706/12/2021ctive metoprolol succinate ER 200 mg tablet,extended release 24 hrRxNorm: 087586Ipdl 1 Tablet(s) Oral QD08/11/2022ctiveloperamide 2 mg capsuleRxNorm: 827371Flct 1 Capsule(s) Oral QID as ciogix0806/12/2021ctivehydralazine 50 mg tabletRxNorm: 291678Jkkl 1 Tablet(s) Oral QID08/11/2022ctiveicosapent ethyl 1 gram capsule RxNorm: 6459972Jsqh 2 Capsule(s) (2 gm) Oral BID with meals/ InactiveOkay to dispense one 2gm tab if you have that available.Levemir FlexTouch U-100 Insulin 100 unit/mL (3 mL) subcutaneous penRxNorm: 665626Ckdzzn 80 Unit(s) Subcutaneous BID/InactiveNovolog Flexpen U-100 Insulin aspart 100 unit/mL (3 mL) subcutaneousRxNorm: 6887636Leojbd 30 Unit(s) Subcutaneous TID with meals/Inactive Medication [...] Status Date Referral: [facility] WPtel: [address], [address] [id number] [place]ReferralRecords Yhbactbu99/08/2023Referral: [facility] WPtel: [address] [id number] VWMwfcvtheClkuwfjvb59/12/2022Referral: General CardiologyReferralCompleted 1Referral: General PsychologistReferralClosed Instructions Comment [...] Sister Jyotsna involved in his care cell# [phone] Guardian: Don (tapan met in person 09/01/21), now has Lexii (same group as don)Lab Schedule: * 10/06/2022
--- OUTSIDE RECORDS SUMMARY | 2022-11-09 23:42 | XMS_ITS | CCD ---
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 Web Development Manager Name Role Phone Tapan Shirley PA-C Primary Care Provider Unavailabl e Tapan Shirley PA-C Chronic Care Management Unavaila ble Summary Purpose DataExchange Insurance Providers Payer name Policy type / Coverage type Covered democrat ID Effective Begin Date Effective End Date Medicare [place] Medicare Part B [id number] Unknown Unknown Medicaid [place] Medicare Part B [id number] Unknown Unknown Family history Sister Brittany Suggs [...] Nursing Home 09/03/[address]: 7896258 Non-Smoker / No History of Smoking 09/02/[address]: 721987422 No Alcohol Consum ption 09/02/2020 Allergies, Adverse Reactions, Alerts Substance Reaction Codes Entered Date Inactivated Date Status LISINOPRIL RxNorm: 1303208No Inactive DateActiveMetformin IDkAyerswp62/28/2020No Inactive DateActive Problems Condition Codes Effective Dates [...] footICD-10: S98.131A ICD-9: 895.003/ctiveCoronary artery disease involving [place] coronary artery of [place] heart, angina presence unspecifiedICD-10: I25.10 ICD-9: 414.0103/ctiveOnychogryposisICD-10: [...] vascular disease)ICD-10: I73.9 ICD-9: 443.909/ctiveDepressionICD-10: F32.9 ICD-9: 16246/2ResolvedDVT (deep venous thrombosis)ICD-10: I82.409 ICD-9: 453.4009/2ResolvedEncounter for [...] L91.8 ICD-9: 701.911/1ActiveCallus of heelICD-10: L84 ICD-9: 68512/1ActiveImpacted cerumen, left earICD-10: H61.22 ICD-9: 380.408/ctiveContact with [...] Z20.828 ICD-9: V01.7902esolvedHyperhidrosis of palmsICD-10: L74.512 ICD-9: 705.0737MqlfptQpoipnytJocdbjr77/28/2020ActiveDiabetes mellitus Type 9Cwnomdi32/28/2020ActiveAnemia in chronic kidney diseaseICD-10: D63.1 02/12/2020ResolvedHyperlipidemia, unspecifiedICD-10: E78.509Resolved Medications Medication Codes Instructions Start Date Stop Date Status Fill Instructions hydrocortisone 2.5 % topical cream RxNorm: 981833 Apply 1/2 Gram(s) Topical BID as needed 11/10/19 23 No Stop Date Active clotrimazole 1 % topical cream RxNorm: 243628 Apply 1/2 Gram(s) Topical BID Apply to affected areas of groin, periarea, and abdominal topically 2 times daily 11/10/19 023 Active Levemir FlexPen 100 unit/mL (3 mL) solution subcutaneous insulin pen RxNorm: 140645 Inject 30 Unit(s) Subcutaneous BID 10/07/19 024 Active Humulin R U-500 (Concentrated) Insulin 500 unit/mL subcutaneous soln RxNorm: 394397 Inject 100 Unit(s) Subcutaneous TID 10/07/19 024 Active Ozempic 0.25 mg or 0.5 mg (2 mg/3 mL) subcutaneous pen injector RxNorm: 7973159 Inject 1/2 Milligram(s) Subcutaneous QW once a week 10/07/19 024 Active aripiprazole 15 mg tablet RxNorm: 198348 1/2 TAB (7.5MG) ORALLY DAILY (DX:MAJOR DEPRESSIVE DISORDER) 09/23/19 023 Active Accu-Chek Guide test strips RxNorm: Use 1 Test Strip QID 09/15/19 23 024 Active ok to substitute with any covered alternative test strip Lancets,Thin 28 gauge RxNorm: Use 1 as directed QID 09/15/19 23 024 Active torsemide 20 mg tablet RxNorm: 293221 Take 1 Tablet(s) Oral BID 09/09/19 024 Active d/c once daily dosing carvedilol 25 mg tablet RxNorm: 868704 Take 1 Tablet(s) Oral QD 08/25/19 024 Active pregabalin 150 mg capsule RxNorm: 891792 1 Capsule(s) Oral HS at bed time 08/18/19 023 Active pregabalin 100 mg capsule RxNorm: 289111 1 Capsule(s) Oral QAM every morning 08/18/19 023 Active carvedilol 25 mg tablet RxNorm: 954595 1 Tablet(s) Oral QD 07/28/19 023 Inactive lisinopril 20 mg tablet RxNorm: 237794 Give 1 Tablet(s) Oral QD 07/28/19 023 Inactive Lyrica 150 mg capsule RxNorm: 511752 Take 1 Capsule(s) Oral QHS every night at bedtime 07/19/19 23 023 Inactive d/c 100mg dose Diflucan 150 mg tablet RxNorm: 229540 Take 1 Tablet(s) Oral QD repeat on day 3 and 6 07/19/19 23 023 Inactive pregabalin 100 mg capsule RxNorm: 479475 Take 1 Capsule(s) Oral QAM every morning 07/19/19 23 023 Inactive gatifloxacin 0.5 % eye drops RxNorm: 097242 Instill 1 Drop(s) as directed TID Instill 1 drop in to affected eye(s) starting 1 day prior to surgery and continue until gone (do not exceed 4 weeks). 07/13/19 23 023 Inactive carvedilol 25 mg tablet RxNorm: 956128 2 Tablet(s) Oral BID 07/13/19 23 023 Inactive Humulin R Regular U-100 Insulin 100 unit/mL injection solution RxNorm: 387150 85 Unit(s) Injection TID 07/13/19 23 023 Inactive ketorolac 0.5 % eye drops RxNorm: 387451 Instill 1 Drop(s) as directed QID Instill 1 drop into affected eye(s) 4 times daily starting 1 day prior to surgery and continue until gone (do not exceed 4 weeks). 07/13/19 023 Inactive Diflucan 150 mg tablet RxNorm: 409507 Take 1 Tablet(s) Oral QD repeat on day 3 and 6 06/30/19 23 023 Inactive Accu-Chek Guide test strips RxNorm: Use 1 Test Strip QID Use 1 test strip to monitor blood glucose 4 times daily and as needed. Dx:E11.42. 06/23/19 23 023 Inactive ok to substitute with any covered alternative test strip dextromethorphan-gu aifenesin 10 mg-100 mg/5 mL oral liquid RxNorm: 100858 Take 10 Milliliter(s) Oral every 4 hours as needed for cough 06/19/19 23 023 Inactive dextromethorphan-gu aifenesin 10 mg-100 mg/5 mL oral liquid RxNorm: 349797 Take 10 Milliliter(s) Oral every 4 hours as needed for cough 06/19/19 023 Inactive Lyrica 150 mg capsule RxNorm: 097231 Take 1 Capsule(s) Oral QHS every night at bedtime 06/18/19 023 Inactive d/c 100mg dose aripiprazole 15 mg tablet RxNorm: 299474 1/2 TAB (7.5MG) ORALLY DAILY (DX:MAJOR DEPRESSIVE DISORDER) 06/05/19 023 Inactive pregabalin 100 mg capsule RxNorm: 422670 1 Capsule(s) Oral QAM every morning 06/02/19 023 Inactive Banophen 50 mg capsule RxNorm: 5265569 Take 1 Capsule(s) Oral Q6H every 6 hours as needed 05/19/19 No Stop Date Active Novolog Flexpen U-100 Insulin aspart 100 unit/mL (3 mL) subcutaneous RxNorm: 1326422 Inject 10 Unit(s) Subcutaneous QHS every night at bedtime with nighttime snack 04/08/20 022 Inactive Novolog Flexpen U-100 Insulin aspart 100 unit/mL (3 mL) subcutaneous RxNorm: 7823592 Inject 42 Unit(s) Subcutaneous TID in addition to sliding scale 04/08/20 022 Inactive d/c 36u albuterol sulfate HFA 90 mcg/actuation aerosol inhaler RxNorm: 1843183 Take 2 Puff(s) Inhalation Q4H every four hours as needed as needed for SOB, cough, or wheezing 04/07/20 030 Active Banophen 50 mg capsule RxNorm: 2331874 Take 1 Capsule(s) Oral Q6H every 6 hours as needed 04/06/20 023 Inactive diphenhydramine 50 mg tablet RxNorm: 2446647 Take 1 Tablet(s) Oral Q6H every 6 hours as needed 04/06/20 022 Inactive diphenhydramine 50 mg tablet RxNorm: 5411487 1 Tablet(s) Oral Q6H every 6 hours as needed 04/06/20 22 022 Inactive Abilify 15 mg tablet RxNorm: 070830 1/2 Tablet(s) Oral QD 03/10/20 22 023 Inactive Shingrix (PF) 50 mcg/0.5 mL intramuscular suspension, kit RxNorm: 7572262 Administer 1/2 Milliliter(s) Intramuscular QD one time shingrix step 2 ( step 1 given 11/04/21) WITH needle - Nursing please administer upon arrival and once administered post a 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, 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, 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, and lot# so we can update [facility] 02/18/20 22 022 Inactive dispense with needle Shingrix (PF) 50 mcg/0.5 mL intramuscular suspension, kit RxNorm: 5894184 Administer 1/2 Milliliter(s) Intramuscular QD one time shingrix step 2 ( step 1 given 11/04/21) WITH needle - Nursing please administer upon arrival and once administered post a 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 message 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, 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, 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, 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 lot# so we can update [facility] 02/18/20 22 022 Inactive dispense with needle acetaminophen 500 mg tablet RxNorm: 964144 Take 1 Tablet(s) Oral TID 01/08/20 22 023 Active d/c PRN order polyethylene glycol 3350 17 gram/dose oral powder RxNorm: 315772 Take 17=1 capful Gram(s) Oral QD mix with 4-8oz of liquid 01/08/20 22 023 Active take this in addition to BID prn order Lyrica 100 mg capsule RxNorm: 333528 Take 1 Capsule(s) Oral QAM every morning 01/08/20 22 022 Inactive d/c 50mg dose Lyrica 150 mg capsule RxNorm: 425700 Take 1 Capsule(s) Oral QHS every night at bedtime 01/08/20 22 023 Inactive d/c 100mg dose Abilify 5 mg tablet RxNorm: 344443 Take 1 Tablet(s) Oral QD take 1 tab po QD #30 refill 5 dx: MDD 12/12/19 22 022 Inactive Abilify 5 mg tablet RxNorm: 924592 Take 1 Tablet(s) Oral QD take 1 tab po QD #30 refill 5 dx: MDD 12/12/19 22 022 Inactive chlorthalidone 25 mg tablet RxNorm: 738642 Take 1 Tablet(s) Oral QAM every morning 12/10/19 22 023 Active Novolog Flexpen U-100 Insulin aspart 100 unit/mL (3 mL) subcutaneous RxNorm: 8305202 Inject 42 Unit(s) Subcutaneous TID in addition to sliding scale 12/10/19 22 022 Inactive d/c 36u pregabalin 50 mg capsule RxNorm: 311530 Take 1 Capsule(s) Oral QAM every morning 11/12/19 22 022 Inactive tetanus-diphtheria toxoids-Td 2 Lf unit-2 Lf unit/0.5 mL IM suspension RxNorm: 139 Take 0.5 Miscellaneous Intramuscular 11/12/19 022 Inactive need tdap - nursing to administer upon arrival pregabalin 50 mg capsule RxNorm: 309340 Take 1 Capsule(s) Oral QAM every morning 10/16/19 22 022 Inactive pregabalin 50 mg capsule RxNorm: 977270 Take 1 Capsule(s) Oral QAM every morning 10/16/19 22 022 Inactive pregabalin 50 mg capsule RxNorm: 275524 1 Capsule(s) Oral QAM every morning 10/15/19 22 022 Inactive Shingrix (PF) 50 mcg/0.5 mL intramuscular suspension, kit RxNorm: 0230876 Administer 1/2 Milliliter(s) Intramuscular one time Nursing please administer upon arrival and once administered post a bridge message 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 10/09/19 22 022 Inactive shingrix step 1 cholecalciferol (vitamin D3) 1,250 mcg (50,000 unit) capsule RxNorm: 330682 Take 1 Capsule(s) Oral QW once a [...] aspart 100 unit/mL (3 mL) subcutaneous RxNorm: 3259141 Inject 10 Unit(s) Subcutaneous QHS every night at bedtime with nighttime snack 10/08/19 22 Inactive Shingrix (PF) 50 mcg/0.5 mL intramuscular suspension, kit RxNorm: 1215898 ADMINISTER 2-DOSE SERIES PER CDC GUIDELINES 10/08/19 22 Active Shingrix (PF) 50 mcg/0.5 mL intramuscular suspension, kit RxNorm: 3071281 ADMINISTER 2-DOSE SERIES PER CDC GUIDELINES 10/08/19 22 Inactive Novolog Flexpen U-100 Insulin aspart 100 unit/mL (3 mL) subcutaneous RxNorm: 2106272 Inject 36 Unit(s) Subcutaneous TID in addition to sliding scale 10/08/19 22 Inactive Novofine Autocover 30 gauge x 1/3 needle RxNorm: Use 1 Miscellaneous UD as directed Use 1 needle as directed to administer insulin 5 times a day Dx:E11.42. 10/03/19 22 Inactive ok to substitute with any covered alternative pen needle benzoyl peroxide 10 % topical cleanser RxNorm: 876049 Apply 1 Application Topical QD apply to face, wash rinse and dry once daily (may change to QOD if drying) 08/19/19 22 Inactive (%covered by insurance) #60ml refill 11 dx: acne benzoyl peroxide 10 % topical cleanser RxNorm: 462742 Apply 1 Application Topical QD apply to face, wash rinse and dry once daily (may change to QOD if drying) 08/19/19 22 022 Inactive (%covered by insurance) #60ml refill 11 dx: acne benzoyl peroxide 10 % topical cleanser RxNorm: 064549 Apply 1 Application Topical QD apply to face, wash rinse and dry once daily (may change to QOD if drying) 08/19/19 22 022 Inactive (%covered by insurance) #60ml refill 11 dx: acne Lyrica 50 mg capsule RxNorm: 213174 Take 1 Capsule(s) Oral QAM every morning Take 1 capsule by mouth once daily 08/19/19 022 Inactive benzoyl peroxide 10 % topical cleanser RxNorm: 602945 Apply 1 Application Topical QD apply to face, wash rinse and dry once daily (may change to QOD if drying) 08/19/19 22 022 Inactive (%covered by insurance) #60ml refill 11 dx: acne Lyrica 100 mg capsule RxNorm: 468362 Take 1 Capsule(s) Oral QHS every night at bedtime Take 1 capsule by mouth once daily at bedtime 08/19/19 22 022 Inactive Lyrica 100 mg capsule RxNorm: 212638 Take 1 Capsule(s) Oral QHS every night at bedtime Take 1 capsule by mouth once daily at bedtime 08/16/19 Inactive Lyrica 50 mg capsule RxNorm: 229828 Take 1 Capsule(s) Oral QAM every morning Take 1 capsule by mouth once daily 08/16/19 022 Inactive Levemir FlexTouch U-100 Insulin 100 unit/mL (3 mL) subcutaneous pen RxNorm: 848582 Inject 86 Unit(s) Subcutaneous BID 08/05/19 22 Inactive d/c 83units BID Lyrica 100 mg capsule RxNorm: 098604 Take 1 Capsule(s) Oral QHS every night at bedtime Take 1 capsule by mouth once daily at bedtime 07/14/19 22 022 Inactive Lyrica 50 mg capsule RxNorm: 540601 Take 1 Capsule(s) Oral QAM every morning Take 1 capsule by mouth once daily 07/14/19 22 Inactive Levemir FlexTouch U-100 Insulin 100 unit/mL (3 mL) subcutaneous pen RxNorm: 511815 Inject 83 Unit(s) Subcutaneous BID 07/08/19 22 [...] 30 mg tablet,extended release 24 hr RxNorm: 520694 Take 1 Tablet(s) Oral QD 05/05/20 No Stop Date Active hydralazine 50 mg tablet RxNorm: 805959 Take 1 Tablet(s) Oral QID 05/05/20 21 Inactive venlafaxine ER 225 mg tablet,extended release 24 hr RxNorm: 300443 Take 1 Tablet(s) Oral QD 05/05/20 21 Inactive venlafaxine ER 225 mg tablet,extended release 24 hr RxNorm: 190945 Take 1 Tablet(s) Oral QD 05/05/20 022 Inactive hydralazine 50 mg tablet RxNorm: 985257 Take 1 Tablet(s) Oral QID 05/05/20 21 Inactive aspirin 81 mg tablet,delayed release RxNorm: 111710 Take 1 Tablet(s) Oral QD 03/31/20 Inactive Zetia 10 mg tablet RxNorm: 539018 Take 1 Tablet(s) Oral QD 03/31/20 Inactive Vitamin D2 1,250 mcg (50,000 unit) capsule RxNorm: 8733607 Take 1 Capsule(s) Oral QW once a week x 12 weeks 03/31/20 Inactive Vitamin D2 1,250 mcg (50,000 unit) capsule RxNorm: 4685863 Take 1 Capsule(s) Oral QW once a week 03/31/20 Inactive Zetia 10 mg tablet RxNorm: 330981 Take 1 Tablet(s) Oral QD 03/31/20 Inactive hydralazine 25 mg tablet RxNorm: 151952 Take 1 Tablet(s) Oral QID 03/31/20 21 Inactive hydralazine 25 mg tablet RxNorm: 470473 Take 1 Tablet(s) Oral QID 03/31/20 Inactive hydralazine 10 mg tablet RxNorm: 733889 Take 1 Tablet(s) Oral QID 03/03/20 Inactive cephalexin 500 mg tablet RxNorm: 540709 Take 1 Tablet(s) Oral QID 02/27/20 021 Inactive cephalexin 500 mg tablet RxNorm: 340702 Take 1 Tablet(s) Oral QID 02/27/20 21 021 Inactive lisinopril 40 mg tablet RxNorm: 565476 Take 1 Tablet(s) Oral QD 02/11/20 023 Inactive Eliquis 5 mg tablet RxNorm: 6037391 Take 1 Tablet(s) Oral BID 01/05/20 21 022 Inactive Eliquis 5 mg tablet RxNorm: 1034442 Take 2 Tablet(s) Oral QD 01/01/20 21 021 Inactive Lyrica 50 mg capsule RxNorm: 659268 Take 1 Capsule(s) Oral QAM every morning 12/24/19 21 021 Inactive Lyrica 100 mg capsule RxNorm: 314706 Take 1 Capsule(s) Oral QHS every night at bedtime 12/24/19 021 Inactive clotrimazole 1 % topical cream RxNorm: 930010 Apply to right foot and toes Topical BID 12/04/19 21 023 Inactive metoprolol succinate ER 200 mg tablet,extended release 24 hr RxNorm: 924432 Take 1 Tablet(s) Oral QD 12/04/19 21 023 Inactive ciprofloxacin 500 mg tablet RxNorm: 064804 Take 1 Tablet(s) Oral QD 11/30/19 21 021 Inactive DX ofloxacin otic drops Accu-Chek Guide test strips RxNorm: USE 1 TO CHECK GLUCOSE 4 TIMES DAILY AND NEEDED 11/15/19 21 023 Inactive Blood Glucose Test strips RxNorm: Use 1 Test Strip QID at PRN 11/05/19 21 023 Inactive E11.42 lisinopril 30 mg tablet RxNorm: 099813 Take 1 Tablet(s) Oral QD 10/30/19 021 Inactive lisinopril 20 mg tablet RxNorm: 838169 Take 1 Tablet(s) Oral QD 10/23/19 21 021 Inactive lisinopril 20 mg tablet RxNorm: 223342 Take 1 Tablet(s) Oral QD 10/23/19 21 021 Inactive lisinopril 10 mg tablet RxNorm: 604608 Take 1 Tablet(s) Oral QD 10/02/19 21 021 Inactive icosapent ethyl 1 gram capsule RxNorm: 8859472 Take 2 Capsule(s) (2 gm) Oral BID with meals 09/12/19 Inactive Okay to dispense one 2gm tab if you have that available. icosapent ethyl 1 gram capsule RxNorm: 9935803 Take 2 Capsule(s) Oral BID 09/12/19 021 Inactive Okay to dispense one 2gm tab if you have that available. amlodipine 10 mg tablet RxNorm: 239477 Take 1 Tablet(s) Oral QD 09/04/19 Inactive aspirin 81 mg tablet,delayed release RxNorm: 528939 Take 1 Tablet(s) Oral QD 09/04/19 Inactive Levemir FlexTouch U-100 Insulin 100 unit/mL (3 mL) subcutaneous pen RxNorm: 326394 Inject 150 Unit(s) Subcutaneous BID 09/04/19 Inactive venlafaxine ER 150 mg tablet,extended release 24 hr RxNorm: 584204 Take 1 Tablet(s) Oral QD 09/04/19 Inactive clotrimazole-betame thasone 1 %-0.05 % topical cream RxNorm: 160897 Apply to rash on red area on left abdomen/chest Topical BID 08/10/19 21 Inactive amlodipine 5 mg tablet RxNorm: 093476 Take 1 Tablet(s) Oral QD 07/31/19 Inactive cephalexin 500 mg tablet RxNorm: 550307 Take 1 Tablet(s) Oral BID BID - Twice Daily 07/31/19 21 021 Inactive Start 08/01/20 pantoprazole 40 mg tablet,delayed release RxNorm: 348424 Take 1 Tablet(s) Oral QAM every morning 07/08/19 Inactive senna 8.6 mg tablet RxNorm: 088268 Take 1 Tablet(s) Oral QD 07/08/19 022 Inactive pravastatin 80 mg tablet RxNorm: 657275 Take 1 Tablet(s) Oral QHS every night at bedtime 07/08/19 Inactive carbamazepine 200 mg tablet RxNorm: 591553 Take 1 Tablet(s) Oral BID 07/08/19 Inactive clopidogrel 75 mg tablet RxNorm: 460460 Take 1 Tablet(s) Oral QD 07/08/19 21 021 Inactive Blood Glucose Test strips RxNorm: Use 1 Test Strip QID at PRN 07/08/19 21 Inactive E11.42 Novolog Flexpen U-100 Insulin aspart 100 unit/mL (3 mL) subcutaneous RxNorm: 4479083 Administer per sliding scale Milliliter(s) Subcutaneous TID 151-200: 10 u; 201-250: 20 u; 251-300: 30 u; 301-350: 40 u; 351-400: 50 u. 07/08/19 022 Inactive lisinopril 5 mg tablet RxNorm: 522835 Take 1 Tablet(s) Oral QD 07/08/19 Inactive Novolog Flexpen U-100 Insulin aspart 100 unit/mL (3 mL) subcutaneous RxNorm: 2068498 Inject 85 Unit(s) Subcutaneous TID 07/08/19 Inactive clotrimazole 1 % topical cream RxNorm: 141440 Apply to bilateral groin areas Topical BID 07/08/19 Inactive metoprolol succinate ER 200 mg tablet,extended release 24 hr RxNorm: 812007 Take 1 Tablet(s) Oral QD 07/08/19 Inactive Vitamin D3 25 mcg (1,000 unit) tablet RxNorm: 773013 Take 1 Tablet(s) Oral QD 07/08/19 Inactive isosorbide dinitrate 30 mg tablet RxNorm: 016634 Take 1 Tablet(s) Oral QD 07/08/19 21 021 Inactive Levemir FlexTouch U-100 Insulin 100 unit/mL (3 mL) subcutaneous pen RxNorm: 046317 Inject 140 Unit(s) Subcutaneous BID 07/08/19 21 021 Inactive torsemide 20 mg tablet RxNorm: 442180 Take 1 Tablet(s) Oral QD 07/08/19 21 023 Inactive venlafaxine 75 mg tablet RxNorm: 532517 Take 1 Tablet(s) Oral QD 07/08/19 21 021 Inactive acetaminophen 500 mg tablet RxNorm: 219892 Take 1 Tablet(s) Oral TID as needed for headache 06/18/19 21 021 Inactive acetaminophen 500 mg tablet RxNorm: 201487 Take 1 Tablet(s) Oral TID as needed for headache 06/18/19 21 021 Inactive Lyrica 100 mg capsule RxNorm: 270030 Take 1 Capsule(s) Oral QHS every night at bedtime 06/11/19 21 021 Inactive Lyrica 50 mg capsule RxNorm: 101957 Take 1 Capsule(s) Oral QAM every morning 06/10/19 21 021 Inactive hydrocortisone 2.5 % topical cream RxNorm: 948637 Apply to bilateral groin creases Topical BID 05/15/20 20 021 Inactive clotrimazole 1 % topical cream RxNorm: 409138 Apply to bilateral groin areas Topical BID 05/15/20 20 021 Inactive Lyrica 50 mg capsule RxNorm: 521442 Take 1 Capsule(s) Oral QAM every morning 05/14/20 20 020 Inactive Lyrica 100 mg capsule RxNorm: 805057 Take 1 Capsule(s) Oral QHS every night [...] Use 1 as directed QID and PRN 12/08/20 20 12/09/2 020 Inactive Blood Glucose Monitoring kit RxNorm: Use as directed QID and PRN 04/23/20 20 Inactive Nystop 100,000 unit/gram topical powder RxNorm: 082422 Apply to abd folds, under breasts and L side of groin Topical BID x 14 days, then BID PRN 04/08/20 20 Inactive dx: yeast dermatitis Lyrica 100 mg capsule RxNorm: 082304 Take 1 Capsule(s) Oral QHS every night at bedtime 03/13/20 20 Inactive Lyrica 50 mg capsule RxNorm: 808458 Take 1 Capsule(s) Oral QAM every morning 03/13/20 Inactive ketoconazole 2 % shampoo RxNorm: 540591 Apply Topical two times a week with showers 03/11/20 20 Inactive cholecalciferol (vitamin D3) 50 mcg (2,000 unit) tablet RxNorm: 509287 Take 1 Tablet(s) Oral QD 03/11/20 20 Inactive Zetia 10 mg tablet RxNorm: 603042 Take 1 Tablet(s) Oral QD 03/07/20 20 Inactive Zetia 10 mg tablet RxNorm: 357721 Take 1 Tablet(s) Oral QD 03/07/20 20 Inactive Lyrica 50 mg capsule RxNorm: 994210 Take 1 Capsule(s) Oral QAM every morning 02/15/20 20 Inactive Lyrica 100 mg capsule RxNorm: 883977 Take 1 Capsule(s) Oral QHS every night at bedtime 02/15/20 20 Inactive Lyrica 100 mg capsule RxNorm: 193019 Take 1 Capsule(s) Oral QHS every night at bedtime 02/15/20 20 Inactive Lyrica 50 mg capsule RxNorm: 954698 Take 1 Capsule(s) Oral QAM every morning 02/15/20 20 Inactive venlafaxine ER 75 mg capsule,extended release 24 hr RxNorm: 185893 Take 3 Capsule(s) Oral QD 06/12/2021 Activepolyethylene glycol 3350 17 gram/dose oral powderRxNorm: 174509Fykw 17=1 capful Gram(s) Oral BID as needed mix with 4-8oz of swooss5106/12/2021ctive metoprolol succinate ER 200 mg tablet,extended release 24 hrRxNorm: 208298Rdwr 1 Tablet(s) Oral QD08/11/2022ctiveloperamide 2 mg capsuleRxNorm: 612016Xoun 1 Capsule(s) Oral QID as gjqehr2006/12/2021ctivehydralazine 50 mg tabletRxNorm: 392346Hdyi 1 Tablet(s) Oral QID08/11/2022ctiveicosapent ethyl 1 gram capsule RxNorm: 2891795Aqmg 2 Capsule(s) (2 gm) Oral BID with meals10/06// InactiveOkay to dispense one 2gm tab if you have that available.Levemir FlexTouch U-100 Insulin 100 unit/mL (3 mL) subcutaneous penRxNorm: 902221Gfhxtx 80 Unit(s) Subcutaneous BID07/14//InactiveNovolog Flexpen U-100 Insulin aspart 100 unit/mL (3 mL) subcutaneousRxNorm: 9919393Sbqxzz 30 Unit(s) Subcutaneous TID with meals10/07//Inactive Medication [...] of [facility] WPtel: [phone] [id number] USReferralRecords Lwudpjhq79/08/2023Referral: [facility] WPtel: [address] [id number] NKOryvnnkmNxrvpbbek35/12/2022Referral: General CardiologyReferralCompleted 1Referral: General PsychologistReferralClosed Instructions Comment [...] Sister Jyotsna involved in his care cell# [phone] Guardian: Don (tapan met in person 09/01/21), now has Lexii (same group as don)Lab Schedule: * 10/06/2022
--- OUTSIDE RECORDS SUMMARY | 2022-12-08 00:59 | XMS_ITS | CCD ---
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 Operator Name Role Phone Tapan Shirley PA-C Primary Care Provider Unavailabl e Tapan Shirley PA-C Chronic Care Management Unavaila ble Summary Purpose DataExchange Insurance Providers Payer name Policy type / Coverage type Covered democrat ID Effective Begin Date Effective End Date [place] [id number] Unknown Unknown [place] B [id number] Unknown Unknown Family history Sister Brittany Suggs [...] Halfway 09/03/[address]: 8236202 Non-Smoker / No History of Smoking 09/02/[address]: 400418972 No Alcohol Consum ption 09/02/2020 Allergies, Adverse Reactions, Alerts Substance Reaction Codes Entered Date Inactivated Date Status LISINOPRIL RxNorm: 8462203No Inactive DateActiveMetformin KKpBluxcix80/28/2020No Inactive DateActive Problems Condition Codes Effective Dates Condition St atus Hyperlipidemia associated with type 2 di abetes mellitus ICD-10: E11.69 ICD-9: 250.8006ctiveHypertensive heart disease without heart failure ICD-10: I11.9 ICD-9: 402.9006ctiveOnychogryposisICD-10: L60.2 ICD-9: 703.806ctiveParaparesis of both lower limbsICD-10: G82.20 ICD-9: 344.106ctiveStage 2 chronic 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ICD-10: E11.22 ICD-9: 250.4006ctiveType 2 diabetes mellitus with diabetic polyneuropathy, with long-term current use of insulinICD-10: E11.42 ICD-9: 250.6006/ctiveConstipation by delayed colonic transitICD-10: K59.01 ICD-9: 564.0105/ctiveLower extremity edemaICD-10: R60.0 ICD-9: 782.305/ctivePain of right heelICD-10: M79.671 ICD-9: 729.505/ctiveHigh risk medication useICD-10: Z79.899 ICD-9: V58.6905/ctiveRecurrent major depressive disorder, in partial remissionICD-10: F33.41 ICD-9: 296.3505/ctiveAmputated toe of right footICD-10: S98.131A ICD-9: 895.003/ctiveCoronary artery disease involving [place] coronary artery of [place] heart, angina presence unspecifiedICD-10: I25.10 ICD-9: 414.0103/ctivePre-op evaluationICD-10: Z01.818 ICD-9: V72.8403/ctiveSecondary hypertensionICD-10: I15.9 ICD-9: 405.9903/ctiveCandidiasis, intertrigoICD-10: B37.2 ICD-9: 112.302/ctiveMajor depression, recurrentICD-10: F33.9 ICD-9: 296.3002/ctiveVitamin D deficiencyICD-10: E55.9 ICD-9: 268.912/ctiveShortness of breathICD-10: R06.02 ICD-9: 786.0511/ctiveSeizure disorderICD-10: G40.909 ICD-9: 345.9011/ctiveCellulitisICD-10: L03.90 ICD-9: 682.910/ctiveReducible umbilical herniaICD-10: K42.9 ICD-9: 553.110/2ActiveBMI 60.0-69.9, adultICD-10: Z68.44 ICD-9: V85.4410/ctiveInappropriate sexual behaviorICD-10: Z72.89 ICD-9: 312.8910/ctiveHx of deep venous thrombosisICD-10: Z86.718 ICD-9: V12.5109/2ActiveHypercoagulable stateICD-10: D68.59 ICD-9: 289.8109/ctivePVD (peripheral vascular disease)ICD-10: I73.9 ICD-9: 443.909/ctiveDepressionICD-10: F32.9 ICD-9: 07821/2ResolvedDVT (deep venous thrombosis)ICD-10: I82.409 ICD-9: 453.4009/2ResolvedEncounter for immunizationICD-10: Z23 ICD-9: V03.8909/2ResolvedLong term (current) use of insulinICD-10: Z79.4 2ResolvedMuscular painICD-10: M79.10 ICD-9: 729.109/2ResolvedDandruff in adultICD-10: L21.0 ICD-9: 690.1808ctiveHypertension associated with diabetesICD-10: E11.59 ICD-9: 250.80082ResolvedHistory of anemia due to CKDICD-10: N18.9 ICD-9: 585.907/2ActiveStage 2 chronic kidney diseaseICD-10: N18.2 ICD-9: 585.207/ctiveGout due to renal impairmentICD-10: M10.30 ICD-9: 274.1006/ctivePreventative health careICD-10: Z00.00 ICD-9: V70.006/ctiveLearning disabilityICD-10: F81.9 ICD-9: 315.212/1ActiveSkin tagICD-10: L91.8 ICD-9: 701.911/1ActiveCallus of heelICD-10: L84 ICD-9: 73529/1ActiveImpacted cerumen, left earICD-10: H61.22 ICD-9: 380.408/ctiveContact with [...] Z20.828 ICD-9: V01.7902/esolvedHyperhidrosis of palmsICD-10: L74.512 ICD-9: 705.1573ScnuxoRfesujlnLwvcous79/28/2020ActiveDiabetes mellitus Type 4Jdjzulf70/28/2020ActiveAnemia in chronic kidney diseaseICD-10: D63.1 02/12/2020ResolvedHyperlipidemia, unspecifiedICD-10: E78.509Resolved Medications Medication Codes Instructions Start Date Stop Date Status Fill Instructions nystatin 100,000 unit/gram topical powder RxNorm: 605721 APPLY TO AFFECTED AREAS TOPICALLY 2 TIMES DAILY 11/21/19 23 10/14/ 024 Active Nystop 100,000 unit/gram topical powder RxNorm: 961543 Apply to abd folds, under breasts and L side of groin Topical BID x 14 days, then BID PRN 11/20/19 023 Inactive dx: yeast dermatitis [place] Ultra Strength 4 %-30 %-10 % topical cream RxNorm: 248205 Apply 1 Gram(s) Topical QID PRN to feet and legs for neuropathic pain 11/11/19 024 Active hydrocortisone 2.5 % topical cream RxNorm: 532688 Apply 1/2 Gram(s) Topical BID as needed 11/10/19 No Stop Date Active clotrimazole 1 % topical cream RxNorm: 581032 Apply 1/2 Gram(s) Topical BID Apply to affected areas of groin, periarea, and abdominal topically 2 times daily 11/10/19 023 Inactive Levemir FlexPen 100 unit/mL (3 mL) solution subcutaneous insulin pen RxNorm: 803974 Inject 30 Unit(s) Subcutaneous BID 10/07/19 024 Active Humulin R U-500 (Concentrated) Insulin 500 unit/mL subcutaneous soln RxNorm: 955402 Inject 100 Unit(s) Subcutaneous TID 10/07/19 024 Active Ozempic 0.25 mg or 0.5 mg (2 mg/3 mL) subcutaneous pen injector RxNorm: 8381225 Inject 1/2 Milligram(s) Subcutaneous QW once a week 10/07/19 024 Active aripiprazole 15 mg tablet RxNorm: 390323 1/2 TAB (7.5MG) ORALLY DAILY (DX:MAJOR DEPRESSIVE DISORDER) 09/23/19 023 Active Accu-Chek Guide test strips RxNorm: Use 1 Test Strip QID 09/15/19 23 024 Active ok to substitute with any covered alternative test strip Lancets,Thin 28 gauge RxNorm: Use 1 as directed QID 09/15/19 23 024 Active torsemide 20 mg tablet RxNorm: 027439 Take 1 Tablet(s) Oral BID 09/09/19 23 024 Active d/c once daily dosing carvedilol 25 mg tablet RxNorm: 764267 Take 1 Tablet(s) Oral QD 08/25/19 024 Active pregabalin 150 mg capsule RxNorm: 273642 1 Capsule(s) Oral HS at bed time 08/18/19 23 023 Active pregabalin 100 mg capsule RxNorm: 055053 1 Capsule(s) Oral QAM every morning 08/18/19 23 023 Active carvedilol 25 mg tablet RxNorm: 697652 1 Tablet(s) Oral QD 07/28/19 23 023 Inactive lisinopril 20 mg tablet RxNorm: 283952 Give 1 Tablet(s) Oral QD 07/28/19 23 023 Inactive Lyrica 150 mg capsule RxNorm: 927802 Take 1 Capsule(s) Oral QHS every night at bedtime 07/19/19 023 Inactive d/c 100mg dose Diflucan 150 mg tablet RxNorm: 207766 Take 1 Tablet(s) Oral QD repeat on day 3 and 6 07/19/19 23 023 Inactive pregabalin 100 mg capsule RxNorm: 182100 Take 1 Capsule(s) Oral QAM every morning 07/19/19 23 023 Inactive gatifloxacin 0.5 % eye drops RxNorm: 091909 Instill 1 Drop(s) as directed TID Instill 1 drop in to affected eye(s) starting 1 day prior to surgery and continue until gone (do not exceed 4 weeks). 07/13/19 23 023 Inactive carvedilol 25 mg tablet RxNorm: 579454 2 Tablet(s) Oral BID 07/13/19 23 023 Inactive Humulin R Regular U-100 Insulin 100 unit/mL injection solution RxNorm: 367366 85 Unit(s) Injection TID 07/13/19 23 023 Inactive ketorolac 0.5 % eye drops RxNorm: 302038 Instill 1 Drop(s) as directed QID Instill 1 drop into affected eye(s) 4 times daily starting 1 day prior to surgery and continue until gone (do not exceed 4 weeks). 07/13/19 23 023 Inactive Diflucan 150 mg tablet RxNorm: 058450 Take 1 Tablet(s) Oral QD repeat on day 3 and 6 06/30/19 23 023 Inactive Accu-Chek Guide test strips RxNorm: Use 1 Test Strip QID Use 1 test strip to monitor blood glucose 4 times daily and as needed. Dx:E11.42. 06/23/19 23 023 Inactive ok to substitute with any covered alternative test strip dextromethorphan-gu aifenesin 10 mg-100 mg/5 mL oral liquid RxNorm: 977254 Take 10 Milliliter(s) Oral every 4 hours as needed for cough 06/19/19 023 Inactive dextromethorphan-gu aifenesin 10 mg-100 mg/5 mL oral liquid RxNorm: 294775 Take 10 Milliliter(s) Oral every 4 hours as needed for cough 06/19/19 023 Inactive Lyrica 150 mg capsule RxNorm: 463737 Take 1 Capsule(s) Oral QHS every night at bedtime 06/18/19 023 Inactive d/c 100mg dose aripiprazole 15 mg tablet RxNorm: 228866 1/2 TAB (7.5MG) ORALLY DAILY (DX:MAJOR DEPRESSIVE DISORDER) 06/05/19 023 Inactive pregabalin 100 mg capsule RxNorm: 834367 1 Capsule(s) Oral QAM every morning 06/02/19 23 023 Inactive Banophen 50 mg capsule RxNorm: 9741404 Take 1 Capsule(s) Oral Q6H every 6 hours as needed 05/19/19 23 No Stop Date Active Novolog Flexpen U-100 Insulin aspart 100 unit/mL (3 mL) subcutaneous RxNorm: 9620431 Inject 10 Unit(s) Subcutaneous QHS every night at bedtime with nighttime snack 04/08/20 22 022 Inactive Novolog Flexpen U-100 Insulin aspart 100 unit/mL (3 mL) subcutaneous RxNorm: 9335782 Inject 42 Unit(s) Subcutaneous TID in addition to sliding scale 04/08/20 22 022 Inactive d/c 36u albuterol sulfate HFA 90 mcg/actuation aerosol inhaler RxNorm: 2585853 Take 2 Puff(s) Inhalation Q4H every four hours as needed as needed for SOB, cough, or wheezing 04/07/20 030 Active Banophen 50 mg capsule RxNorm: 8155297 Take 1 Capsule(s) Oral Q6H every 6 hours as needed 04/06/20 023 Inactive diphenhydramine 50 mg tablet RxNorm: 6864551 Take 1 Tablet(s) Oral Q6H every 6 hours as needed 04/06/20 022 Inactive diphenhydramine 50 mg tablet RxNorm: 6863840 1 Tablet(s) Oral Q6H every 6 hours as needed 04/06/20 022 Inactive Abilify 15 mg tablet RxNorm: 250797 1/2 Tablet(s) Oral QD 03/10/20 023 Inactive Shingrix (PF) 50 mcg/0.5 mL intramuscular suspension, kit RxNorm: 3084444 Administer 1/2 Milliliter(s) Intramuscular QD one time shingrix step 2 ( step 1 given 11/04/21) WITH needle - Nursing please administer upon arrival and once administered post a bridge message with date of administration, frameman, expiration date, and lot# so we can update [facility] 02/18/20 022 Inactive dispense with needle Shingrix (PF) 50 mcg/0.5 mL intramuscular suspension, kit RxNorm: 2524611 Administer 1/2 Milliliter(s) Intramuscular QD one time shingrix step 2 ( step 1 given 11/04/21) WITH needle - Nursing please administer upon arrival and once administered post a bridge message with date of administration, frameman, expiration date, and lot# so we can update [facility] 02/18/20 22 022 Inactive dispense with needle acetaminophen 500 mg tablet RxNorm: 520507 Take 1 Tablet(s) Oral TID 01/08/20 023 Active d/c PRN order polyethylene glycol 3350 17 gram/dose oral powder RxNorm: 450110 Take 17=1 capful Gram(s) Oral QD mix with 4-8oz of liquid 01/08/20 023 Active take this in addition to BID prn order Lyrica 100 mg capsule RxNorm: 456473 Take 1 Capsule(s) Oral QAM every morning 01/08/20 22 022 Inactive d/c 50mg dose Lyrica 150 mg capsule RxNorm: 446386 Take 1 Capsule(s) Oral QHS every night at bedtime 01/08/20 22 023 Inactive d/c 100mg dose Abilify 5 mg tablet RxNorm: 726165 Take 1 Tablet(s) Oral QD take 1 tab po QD #30 refill 5 dx: MDD 12/12/19 22 022 Inactive Abilify 5 mg tablet RxNorm: 113348 Take 1 Tablet(s) Oral QD take 1 tab po QD #30 refill 5 dx: MDD 12/12/19 22 022 Inactive chlorthalidone 25 mg tablet RxNorm: 721684 Take 1 Tablet(s) Oral QAM every morning 12/10/19 22 023 Inactive Novolog Flexpen U-100 Insulin aspart 100 unit/mL (3 mL) subcutaneous RxNorm: 4535427 Inject 42 Unit(s) Subcutaneous TID in addition to sliding scale 12/10/19 22 022 Inactive d/c 36u pregabalin 50 mg capsule RxNorm: 020086 Take 1 Capsule(s) Oral QAM every morning 11/12/19 22 022 Inactive tetanus-diphtheria toxoids-Td 2 Lf unit-2 Lf unit/0.5 mL IM suspension RxNorm: 139 Take 0.5 Miscellaneous Intramuscular 11/12/19 22 022 Inactive need tdap - nursing to administer upon arrival pregabalin 50 mg capsule RxNorm: 684433 Take 1 Capsule(s) Oral QAM every morning 10/16/19 22 022 Inactive pregabalin 50 mg capsule RxNorm: 420329 Take 1 Capsule(s) Oral QAM every morning 10/16/19 22 022 Inactive pregabalin 50 mg capsule RxNorm: 680400 1 Capsule(s) Oral QAM every morning 10/15/19 22 022 Inactive Shingrix (PF) 50 mcg/0.5 mL intramuscular suspension, kit RxNorm: 6923727 Administer 1/2 Milliliter(s) Intramuscular one time Nursing please administer upon arrival and once administered post a bridge message with date of administration, frameman, expiration date, and lot# so we can update [facility]. 10/09/19 22 022 Inactive shingrix step 1 Shingrix (PF) 50 mcg/0.5 mL intramuscular suspension, kit RxNorm: 9939944 Administer 1/2 Milliliter(s) Intramuscular one time Nursing please administer upon arrival and once administered post a bridge message with date of administration, frameman, expiration date, and lot# so we can update [facility]. 10/09/19 22 022 Inactive shingrix step 1 cholecalciferol (vitamin D3) 1,250 mcg (50,000 unit) capsule RxNorm: 407236 Take 1 Capsule(s) Oral QW once a [...] aspart 100 unit/mL (3 mL) subcutaneous RxNorm: 6501949 Inject 10 Unit(s) Subcutaneous QHS every night at bedtime with nighttime snack 10/08/19 22 Inactive Shingrix (PF) 50 mcg/0.5 mL intramuscular suspension, kit RxNorm: 1524548 ADMINISTER 2-DOSE SERIES PER CDC GUIDELINES 10/08/19 22 022 Active Shingrix (PF) 50 mcg/0.5 mL intramuscular suspension, kit RxNorm: 2489660 ADMINISTER 2-DOSE SERIES PER CDC GUIDELINES 10/08/19 22 Inactive Novolog Flexpen U-100 Insulin aspart 100 unit/mL (3 mL) subcutaneous RxNorm: 9806114 Inject 36 Unit(s) Subcutaneous TID in addition to sliding scale 10/08/19 022 Inactive Novofine Autocover 30 gauge x 1/3 needle RxNorm: Use 1 Miscellaneous UD as directed Use 1 needle as directed to administer insulin 5 times a day Dx:E11.42. 10/03/19 22 Inactive ok to substitute with any covered alternative pen needle benzoyl peroxide 10 % topical cleanser RxNorm: 866719 Apply 1 Application Topical QD apply to face, wash rinse and dry once daily (may change to QOD if drying) 08/19/19 22 022 Inactive (%covered by insurance) #60ml refill 11 dx: acne benzoyl peroxide 10 % topical cleanser RxNorm: 497879 Apply 1 Application Topical QD apply to face, wash rinse and dry once daily (may change to QOD if drying) 08/19/19 022 Inactive (%covered by insurance) #60ml refill 11 dx: acne benzoyl peroxide 10 % topical cleanser RxNorm: 966287 Apply 1 Application Topical QD apply to face, wash rinse and dry once daily (may change to QOD if drying) 08/19/19 022 Inactive (%covered by insurance) #60ml refill 11 dx: acne Lyrica 50 mg capsule RxNorm: 763574 Take 1 Capsule(s) Oral QAM every morning Take 1 capsule by mouth once daily 08/19/19 022 Inactive benzoyl peroxide 10 % topical cleanser RxNorm: 250132 Apply 1 Application Topical QD apply to face, wash rinse and dry once daily (may change to QOD if drying) 08/19/19 22 022 Inactive (%covered by insurance) #60ml refill 11 dx: acne Lyrica 100 mg capsule RxNorm: 844014 Take 1 Capsule(s) Oral QHS every night at bedtime Take 1 capsule by mouth once daily at bedtime 08/19/19 22 022 Inactive Lyrica 100 mg capsule RxNorm: 917180 Take 1 Capsule(s) Oral QHS every night at bedtime Take 1 capsule by mouth once daily at bedtime 08/16/19 22 022 Inactive Lyrica 50 mg capsule RxNorm: 751202 Take 1 Capsule(s) Oral QAM every morning Take 1 capsule by mouth once daily 08/16/19 22 022 Inactive Levemir FlexTouch U-100 Insulin 100 unit/mL (3 mL) subcutaneous pen RxNorm: 791621 Inject 86 Unit(s) Subcutaneous BID 08/05/19 22 022 Inactive d/c 83units BID Lyrica 100 mg capsule RxNorm: 053745 Take 1 Capsule(s) Oral QHS every night at bedtime Take 1 capsule by mouth once daily at bedtime 07/14/19 22 022 Inactive Lyrica 50 mg capsule RxNorm: 316955 Take 1 Capsule(s) Oral QAM every morning Take 1 capsule by mouth once daily 07/14/19 22 022 Inactive Levemir FlexTouch U-100 Insulin 100 unit/mL (3 mL) subcutaneous pen RxNorm: 103562 Inject 83 Unit(s) Subcutaneous BID 07/08/19 22 [...] daily and as needed. Dx:E1142 06/05/19 22 022 Inactive ok to substitute [...] 30 mg tablet,extended release 24 hr RxNorm: 576841 Take 1 Tablet(s) Oral QD 05/05/20 21 No Stop Date Active hydralazine 50 mg tablet RxNorm: 779995 Take 1 Tablet(s) Oral QID 05/05/20 21 022 Inactive venlafaxine ER 225 mg tablet,extended release 24 hr RxNorm: 552050 Take 1 Tablet(s) Oral QD 05/05/20 Inactive venlafaxine ER 225 mg tablet,extended release 24 hr RxNorm: 389607 Take 1 Tablet(s) Oral QD 05/05/20 022 Inactive hydralazine 50 mg tablet RxNorm: 893369 Take 1 Tablet(s) Oral QID 05/05/20 21 Inactive aspirin 81 mg tablet,delayed release RxNorm: 157669 Take 1 Tablet(s) Oral QD 03/31/20 022 Inactive Zetia 10 mg tablet RxNorm: 428106 Take 1 Tablet(s) Oral QD 03/31/20 022 Inactive Vitamin D2 1,250 mcg (50,000 unit) capsule RxNorm: 9425584 Take 1 Capsule(s) Oral QW once a week x 12 weeks 03/31/20 022 Inactive Vitamin D2 1,250 mcg (50,000 unit) capsule RxNorm: 9537704 Take 1 Capsule(s) Oral QW once a week 03/31/20 Inactive Zetia 10 mg tablet RxNorm: 724833 Take 1 Tablet(s) Oral QD 03/31/20 21 021 Inactive hydralazine 25 mg tablet RxNorm: 661887 Take 1 Tablet(s) Oral QID 03/31/20 21 021 Inactive hydralazine 25 mg tablet RxNorm: 588575 Take 1 Tablet(s) Oral QID 03/31/20 021 Inactive hydralazine 10 mg tablet RxNorm: 339914 Take 1 Tablet(s) Oral QID 03/03/20 021 Inactive cephalexin 500 mg tablet RxNorm: 888623 Take 1 Tablet(s) Oral QID 02/27/20 021 Inactive cephalexin 500 mg tablet RxNorm: 355060 Take 1 Tablet(s) Oral QID 02/27/20 021 Inactive lisinopril 40 mg tablet RxNorm: 932545 Take 1 Tablet(s) Oral QD 02/11/20 023 Inactive Eliquis 5 mg tablet RxNorm: 6993337 Take 1 Tablet(s) Oral BID 01/05/20 21 022 Inactive Eliquis 5 mg tablet RxNorm: 8052236 Take 2 Tablet(s) Oral QD 01/01/20 21 021 Inactive Lyrica 50 mg capsule RxNorm: 725131 Take 1 Capsule(s) Oral QAM every morning 12/24/19 21 021 Inactive Lyrica 100 mg capsule RxNorm: 519418 Take 1 Capsule(s) Oral QHS every night at bedtime 12/24/19 021 Inactive clotrimazole 1 % topical cream RxNorm: 026846 Apply to right foot and toes Topical BID 12/04/19 21 023 Inactive metoprolol succinate ER 200 mg tablet,extended release 24 hr RxNorm: 215380 Take 1 Tablet(s) Oral QD 12/04/19 21 023 Inactive ciprofloxacin 500 mg tablet RxNorm: 046833 Take 1 Tablet(s) Oral QD 11/30/19 21 021 Inactive DX ofloxacin otic drops Accu-Chek Guide test strips RxNorm: USE 1 TO CHECK GLUCOSE 4 TIMES DAILY AND NEEDED 11/15/19 21 023 Inactive Blood Glucose Test strips RxNorm: Use 1 Test Strip QID at PRN 11/05/19 21 023 Inactive E11.42 lisinopril 30 mg tablet RxNorm: 188524 Take 1 Tablet(s) Oral QD 10/30/19 021 Inactive lisinopril 20 mg tablet RxNorm: 296031 Take 1 Tablet(s) Oral QD 10/23/19 021 Inactive lisinopril 20 mg tablet RxNorm: 744690 Take 1 Tablet(s) Oral QD 10/23/19 21 021 Inactive lisinopril 10 mg tablet RxNorm: 110177 Take 1 Tablet(s) Oral QD 10/02/19 021 Inactive icosapent ethyl 1 gram capsule RxNorm: 4898636 Take 2 Capsule(s) (2 gm) Oral BID with meals 09/12/19 022 Inactive Okay to dispense one 2gm tab if you have that available. icosapent ethyl 1 gram capsule RxNorm: 7306842 Take 2 Capsule(s) Oral BID 09/12/19 021 Inactive Okay to dispense one 2gm tab if you have that available. amlodipine 10 mg tablet RxNorm: 692188 Take 1 Tablet(s) Oral QD 09/04/19 022 Inactive aspirin 81 mg tablet,delayed release RxNorm: 908076 Take 1 Tablet(s) Oral QD 09/04/19 21 021 Inactive Levemir FlexTouch U-100 Insulin 100 unit/mL (3 mL) subcutaneous pen RxNorm: 781913 Inject 150 Unit(s) Subcutaneous BID 09/04/19 21 022 Inactive venlafaxine ER 150 mg tablet,extended release 24 hr RxNorm: 284067 Take 1 Tablet(s) Oral QD 09/04/19 21 021 Inactive clotrimazole-betame thasone 1 %-0.05 % topical cream RxNorm: 311408 Apply to rash on red area on left abdomen/chest Topical BID 08/10/19 21 021 Inactive amlodipine 5 mg tablet RxNorm: 103322 Take 1 Tablet(s) Oral QD 07/31/19 021 Inactive cephalexin 500 mg tablet RxNorm: 831230 Take 1 Tablet(s) Oral BID BID - Twice Daily 07/31/19 Inactive Start 08/01/20 pantoprazole 40 mg tablet,delayed release RxNorm: 725703 Take 1 Tablet(s) Oral QAM every morning 07/08/19 022 Inactive senna 8.6 mg tablet RxNorm: 748554 Take 1 Tablet(s) Oral QD 07/08/19 022 Inactive pravastatin 80 mg tablet RxNorm: 542184 Take 1 Tablet(s) Oral QHS every night at bedtime 07/08/19 Inactive carbamazepine 200 mg tablet RxNorm: 534325 Take 1 Tablet(s) Oral BID 07/08/19 022 Inactive clopidogrel 75 mg tablet RxNorm: 447736 Take 1 Tablet(s) Oral QD 07/08/19 021 Inactive Blood Glucose Test strips RxNorm: Use 1 Test Strip QID at PRN 07/08/19 Inactive E11.42 Novolog Flexpen U-100 Insulin aspart 100 unit/mL (3 mL) subcutaneous RxNorm: 1262368 Administer per sliding scale Milliliter(s) Subcutaneous TID 151-200: 10 u; 201-250: 20 u; 251-300: 30 u; 301-350: 40 u; 351-400: 50 u. 07/08/19 022 Inactive lisinopril 5 mg tablet RxNorm: 836933 Take 1 Tablet(s) Oral QD 07/08/19 021 Inactive Novolog Flexpen U-100 Insulin aspart 100 unit/mL (3 mL) subcutaneous RxNorm: 6451533 Inject 85 Unit(s) Subcutaneous TID 07/08/19 022 Inactive clotrimazole 1 % topical cream RxNorm: 182481 Apply to bilateral groin areas Topical BID 07/08/19 21 022 Inactive metoprolol succinate ER 200 mg tablet,extended release 24 hr RxNorm: 429481 Take 1 Tablet(s) Oral QD 07/08/19 021 Inactive Vitamin D3 25 mcg (1,000 unit) tablet RxNorm: 320768 Take 1 Tablet(s) Oral QD 07/08/19 Inactive isosorbide dinitrate 30 mg tablet RxNorm: 916566 Take 1 Tablet(s) Oral QD 07/08/19 021 Inactive Levemir FlexTouch U-100 Insulin 100 unit/mL (3 mL) subcutaneous pen RxNorm: 121411 Inject 140 Unit(s) Subcutaneous BID 07/08/19 021 Inactive torsemide 20 mg tablet RxNorm: 955440 Take 1 Tablet(s) Oral QD 07/08/19 023 Inactive venlafaxine 75 mg tablet RxNorm: 080253 Take 1 Tablet(s) Oral QD 07/08/19 021 Inactive acetaminophen 500 mg tablet RxNorm: 057368 Take 1 Tablet(s) Oral TID as needed for headache 06/18/19 021 Inactive acetaminophen 500 mg tablet RxNorm: 522832 Take 1 Tablet(s) Oral TID as needed for headache 06/18/19 021 Inactive Lyrica 100 mg capsule RxNorm: 597928 Take 1 Capsule(s) Oral QHS every night at bedtime 06/11/19 021 Inactive Lyrica 50 mg capsule RxNorm: 808145 Take 1 Capsule(s) Oral QAM every morning 06/10/19 021 Inactive hydrocortisone 2.5 % topical cream RxNorm: 713839 Apply to bilateral groin creases Topical BID 05/15/20 20 021 Inactive clotrimazole 1 % topical cream RxNorm: 040702 Apply to bilateral groin areas Topical BID 05/15/20 20 021 Inactive Lyrica 50 mg capsule RxNorm: 171264 Take 1 Capsule(s) Oral QAM every morning 05/14/20 20 020 Inactive Lyrica 100 mg capsule RxNorm: 995786 Take 1 Capsule(s) Oral QHS every night [...] Inactive Nystop 100,000 unit/gram topical powder RxNorm: 529077 Apply to abd folds, under breasts and L side of groin Topical BID x 14 days, then BID PRN 04/08/20 20 Inactive dx: yeast dermatitis Lyrica 100 mg capsule RxNorm: 419515 Take 1 Capsule(s) Oral QHS every night at bedtime 03/13/20 20 Inactive Lyrica 50 mg capsule RxNorm: 504155 Take 1 Capsule(s) Oral QAM every morning 03/13/20 20 Inactive ketoconazole 2 % shampoo RxNorm: 000977 Apply Topical two times a week with showers 03/11/20 20 Inactive cholecalciferol (vitamin D3) 50 mcg (2,000 unit) tablet RxNorm: 246326 Take 1 Tablet(s) Oral QD 03/11/20 20 021 Inactive Zetia 10 mg tablet RxNorm: 005554 Take 1 Tablet(s) Oral QD 03/07/20 20 021 Inactive Zetia 10 mg tablet RxNorm: 240951 Take 1 Tablet(s) Oral QD 03/07/20 20 Inactive Lyrica 50 mg capsule RxNorm: 484580 Take 1 Capsule(s) Oral QAM every morning 02/15/20 20 Inactive Lyrica 100 mg capsule RxNorm: 917717 Take 1 Capsule(s) Oral QHS every night at bedtime 02/15/20 Inactive Lyrica 100 mg capsule RxNorm: 549568 Take 1 Capsule(s) Oral QHS every night at bedtime 02/15/20 Inactive Lyrica 50 mg capsule RxNorm: 646196 Take 1 Capsule(s) Oral QAM every morning 02/15/20 Inactive venlafaxine ER 75 mg capsule,extended release 24 hr RxNorm: 464722 Take 3 Capsule(s) Oral QD 06/12/2021 Activepolyethylene glycol 3350 17 gram/dose oral powderRxNorm: 812986Najp 17=1 capful Gram(s) Oral BID as needed mix with 4-8oz of dvfxji1806/12/2021ctive metoprolol succinate ER 200 mg tablet,extended release 24 hrRxNorm: 434779Ieix 1 Tablet(s) Oral QD08/11/2022ctiveloperamide 2 mg capsuleRxNorm: 208731Fblw 1 Capsule(s) Oral QID as lktayb3806/12/2021ctivehydralazine 50 mg tabletRxNorm: 412533Mlab 1 Tablet(s) Oral QID08/11/2022ctiveicosapent ethyl 1 gram capsule RxNorm: [id number] 2 Capsule(s) (2 gm) Oral BID with meals/ InactiveOkay to dispense one 2gm tab if you have that available.Levemir FlexTouch U-100 Insulin 100 unit/mL (3 mL) subcutaneous penRxNorm: [id number] 80 Unit(s) Subcutaneous BID/InactiveNovolog Flexpen U-100 Insulin aspart 100 unit/mL (3 mL) subcutaneousRxNorm: [id number] 30 Unit(s) Subcutaneous TID with meals/Inactive Medication [...] Date Referral: [facility] WPtel: [address] , [address] [id number] USReferralRecords Iibghcsi33/08/2023Referral: [facility] WPtel: [address] [id number] HAOxrvcmvqAjlloxxvz75/12/2022Referral: General CardiologyReferralCompleted 1Referral: General PsychologistReferralClosed Instructions Comment [...] Sister Jyotsna involved in his care cell# [phone] Guardian: Don (tapan met in person 09/01/21), now has Lexii (same group as don)Lab Schedule: * 10/06/2022
--- OUTSIDE RECORDS SUMMARY | 2022-12-08 00:59 | XMS_ITS | CCD ---
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 Freight Brakeman Name Role Phone Tapan Shirley PA-C Primary Care Provider Unavailabl e Tapan Shirley PA-C Chronic Care Management Unavaila ble Summary Purpose DataExchange Insurance Providers Payer name Policy type / Coverage type Covered republican ID Effective Begin Date Effective End Date Medicare [place] Medicare Part B [id number] Unknown Unknown Medicaid [place] Medicare Part B [id number] Unknown Unknown Family history Sister Brittany Suggs [...] Nursing 09/03/[address]: 4068828 Non-Smoker / No History of Smoking 09/02/[address]: 339981412 No Alcohol Consum ption 09/02/2020 Allergies, Adverse Reactions, Alerts Substance Reaction Codes Entered Date Inactivated Date Status LISINOPRIL RxNorm: 4595876No Inactive DateActiveMetformin SHdCnuqrvf97/28/2020No Inactive DateActive Problems Condition Codes Effective Dates [...] footICD-10: S98.131A ICD-9: 895.003/ctiveCoronary artery disease involving squaxin coronary artery of squaxin heart, angina presence unspecifiedICD-10: I25.10 ICD-9: 414.0103/ctivePre-op [...] vascular disease)ICD-10: I73.9 ICD-9: 443.909/ctiveDepressionICD-10: F32.9 ICD-9: 91215/2ResolvedDVT (deep venous thrombosis)ICD-10: I82.409 ICD-9: 453.4009/2ResolvedEncounter for [...] L91.8 ICD-9: 701.911/1ActiveCallus of heelICD-10: L84 ICD-9: 43761/1ActiveImpacted cerumen, left earICD-10: H61.22 ICD-9: 380.408/ctiveContact with [...] Z20.828 ICD-9: V01.7902/esolvedHyperhidrosis of palmsICD-10: L74.512 ICD-9: 705.3290VmvtlpZgimtqzkGlgemig18/28/2020ActiveDiabetes mellitus Type 0Owznfbb25/28/2020ActiveAnemia in chronic kidney diseaseICD-10: D63.1 02/12/2020ResolvedHyperlipidemia, unspecifiedICD-10: E78.509Resolved Medications Medication Codes Instructions Start Date Stop Date Status Fill Instructions nystatin 100,000 unit/gram topical powder RxNorm: 325871 APPLY TO AFFECTED AREAS TOPICALLY 2 TIMES DAILY 11/21/19 23 10/14/ 024 Active Nystop 100,000 unit/gram topical powder RxNorm: 272597 Apply to abd folds, under breasts and L side of groin Topical BID x 14 days, then BID PRN 11/20/19 023 Inactive dx: yeast dermatitis Bengay Ultra Strength 4 %-30 %-10 % topical cream RxNorm: 549013 Apply 1 Gram(s) Topical QID PRN to feet and legs for neuropathic pain 11/11/19 024 Active hydrocortisone 2.5 % topical cream RxNorm: 210427 Apply 1/2 Gram(s) Topical BID as needed 11/10/19 No Stop Date Active clotrimazole 1 % topical cream RxNorm: 705948 Apply 1/2 Gram(s) Topical BID Apply to affected areas of groin, periarea, and abdominal topically 2 times daily 11/10/19 023 Inactive Levemir FlexPen 100 unit/mL (3 mL) solution subcutaneous insulin pen RxNorm: 565759 Inject 30 Unit(s) Subcutaneous BID 10/07/19 024 Active Humulin R U-500 (Concentrated) Insulin 500 unit/mL subcutaneous soln RxNorm: 277704 Inject 100 Unit(s) Subcutaneous TID 10/07/19 024 Active Ozempic 0.25 mg or 0.5 mg (2 mg/3 mL) subcutaneous pen injector RxNorm: 7988070 Inject 1/2 Milligram(s) Subcutaneous QW once a week 10/07/19 024 Active aripiprazole 15 mg tablet RxNorm: 188936 1/2 TAB (7.5MG) ORALLY DAILY (DX:MAJOR DEPRESSIVE DISORDER) 09/23/19 023 Active Accu-Chek Guide test strips RxNorm: Use 1 Test Strip QID 09/15/19 23 024 Active ok to substitute with any covered alternative test strip Lancets,Thin 28 gauge RxNorm: Use 1 as directed QID 09/15/19 23 024 Active torsemide 20 mg tablet RxNorm: 574819 Take 1 Tablet(s) Oral BID 09/09/19 23 024 Active d/c once daily dosing carvedilol 25 mg tablet RxNorm: 403234 Take 1 Tablet(s) Oral QD 08/25/19 024 Active pregabalin 150 mg capsule RxNorm: 301986 1 Capsule(s) Oral HS at bed time 08/18/19 23 023 Active pregabalin 100 mg capsule RxNorm: 083289 1 Capsule(s) Oral QAM every morning 08/18/19 23 023 Active carvedilol 25 mg tablet RxNorm: 413935 1 Tablet(s) Oral QD 07/28/19 23 023 Inactive lisinopril 20 mg tablet RxNorm: 682292 Give 1 Tablet(s) Oral QD 07/28/19 23 023 Inactive Lyrica 150 mg capsule RxNorm: 792010 Take 1 Capsule(s) Oral QHS every night at bedtime 07/19/19 023 Inactive d/c 100mg dose Diflucan 150 mg tablet RxNorm: 688314 Take 1 Tablet(s) Oral QD repeat on day 3 and 6 07/19/19 23 023 Inactive pregabalin 100 mg capsule RxNorm: 493714 Take 1 Capsule(s) Oral QAM every morning 07/19/19 23 023 Inactive gatifloxacin 0.5 % eye drops RxNorm: 200632 Instill 1 Drop(s) as directed TID Instill 1 drop in to affected eye(s) starting 1 day prior to surgery and continue until gone (do not exceed 4 weeks). 07/13/19 23 023 Inactive carvedilol 25 mg tablet RxNorm: 314543 2 Tablet(s) Oral BID 07/13/19 23 023 Inactive Humulin R Regular U-100 Insulin 100 unit/mL injection solution RxNorm: 124298 85 Unit(s) Injection TID 07/13/19 23 023 Inactive ketorolac 0.5 % eye drops RxNorm: 266580 Instill 1 Drop(s) as directed QID Instill 1 drop into affected eye(s) 4 times daily starting 1 day prior to surgery and continue until gone (do not exceed 4 weeks). 07/13/19 23 023 Inactive Diflucan 150 mg tablet RxNorm: 983363 Take 1 Tablet(s) Oral QD repeat on day 3 and 6 06/30/19 23 023 Inactive Accu-Chek Guide test strips RxNorm: Use 1 Test Strip QID Use 1 test strip to monitor blood glucose 4 times daily and as needed. Dx:E11.42. 06/23/19 23 023 Inactive ok to substitute with any covered alternative test strip dextromethorphan-gu aifenesin 10 mg-100 mg/5 mL oral liquid RxNorm: 722516 Take 10 Milliliter(s) Oral every 4 hours as needed for cough 06/19/19 023 Inactive dextromethorphan-gu aifenesin 10 mg-100 mg/5 mL oral liquid RxNorm: 322180 Take 10 Milliliter(s) Oral every 4 hours as needed for cough 06/19/19 023 Inactive Lyrica 150 mg capsule RxNorm: 565467 Take 1 Capsule(s) Oral QHS every night at bedtime 06/18/19 023 Inactive d/c 100mg dose aripiprazole 15 mg tablet RxNorm: 316224 1/2 TAB (7.5MG) ORALLY DAILY (DX:MAJOR DEPRESSIVE DISORDER) 06/05/19 023 Inactive pregabalin 100 mg capsule RxNorm: 870006 1 Capsule(s) Oral QAM every morning 06/02/19 23 023 Inactive Banophen 50 mg capsule RxNorm: 6360129 Take 1 Capsule(s) Oral Q6H every 6 hours as needed 05/19/19 23 No Stop Date Active Novolog Flexpen U-100 Insulin aspart 100 unit/mL (3 mL) subcutaneous RxNorm: 1329918 Inject 10 Unit(s) Subcutaneous QHS every night at bedtime with nighttime snack 04/08/20 22 022 Inactive Novolog Flexpen U-100 Insulin aspart 100 unit/mL (3 mL) subcutaneous RxNorm: 6229865 Inject 42 Unit(s) Subcutaneous TID in addition to sliding scale 04/08/20 22 022 Inactive d/c 36u albuterol sulfate HFA 90 mcg/actuation aerosol inhaler RxNorm: 7951673 Take 2 Puff(s) Inhalation Q4H every four hours as needed as needed for SOB, cough, or wheezing 04/07/20 030 Active Banophen 50 mg capsule RxNorm: 6590595 Take 1 Capsule(s) Oral Q6H every 6 hours as needed 04/06/20 023 Inactive diphenhydramine 50 mg tablet RxNorm: 3229011 Take 1 Tablet(s) Oral Q6H every 6 hours as needed 04/06/20 022 Inactive diphenhydramine 50 mg tablet RxNorm: 3753287 1 Tablet(s) Oral Q6H every 6 hours as needed 04/06/20 022 Inactive Abilify 15 mg tablet RxNorm: 116028 1/2 Tablet(s) Oral QD 03/10/20 023 Inactive Shingrix (PF) 50 mcg/0.5 mL intramuscular suspension, kit RxNorm: 3935153 Administer 1/2 Milliliter(s) Intramuscular QD one time shingrix step 2 ( step 1 given 11/04/21) WITH needle - Nursing please administer upon arrival and once administered post a bridge message with date of administration, package clerk, expiration date, and lot# so we can update [facility] 02/18/20 022 Inactive dispense with needle Shingrix (PF) 50 mcg/0.5 mL intramuscular suspension, kit RxNorm: 1457939 Administer 1/2 Milliliter(s) Intramuscular QD one time shingrix step 2 ( step 1 given 11/04/21) WITH needle - Nursing please administer upon arrival and once administered post a bridge message with date of administration, package clerk, expiration date, and lot# so we can update [facility] 02/18/20 22 022 Inactive dispense with needle acetaminophen 500 mg tablet RxNorm: 181569 Take 1 Tablet(s) Oral TID 01/08/20 023 Active d/c PRN order polyethylene glycol 3350 17 gram/dose oral powder RxNorm: 941412 Take 17=1 capful Gram(s) Oral QD mix with 4-8oz of liquid 01/08/20 023 Active take this in addition to BID prn order Lyrica 100 mg capsule RxNorm: 324077 Take 1 Capsule(s) Oral QAM every morning 01/08/20 22 022 Inactive d/c 50mg dose Lyrica 150 mg capsule RxNorm: 196624 Take 1 Capsule(s) Oral QHS every night at bedtime 01/08/20 22 023 Inactive d/c 100mg dose Abilify 5 mg tablet RxNorm: 447134 Take 1 Tablet(s) Oral QD take 1 tab po QD #30 refill 5 dx: MDD 12/12/19 22 022 Inactive Abilify 5 mg tablet RxNorm: 350596 Take 1 Tablet(s) Oral QD take 1 tab po QD #30 refill 5 dx: MDD 12/12/19 22 022 Inactive chlorthalidone 25 mg tablet RxNorm: 092062 Take 1 Tablet(s) Oral QAM every morning 12/10/19 22 023 Inactive Novolog Flexpen U-100 Insulin aspart 100 unit/mL (3 mL) subcutaneous RxNorm: 1518270 Inject 42 Unit(s) Subcutaneous TID in addition to sliding scale 12/10/19 22 022 Inactive d/c 36u pregabalin 50 mg capsule RxNorm: 405160 Take 1 Capsule(s) Oral QAM every morning 11/12/19 22 022 Inactive tetanus-diphtheria toxoids-Td 2 Lf unit-2 Lf unit/0.5 mL IM suspension RxNorm: 139 Take 0.5 Miscellaneous Intramuscular 11/12/19 22 022 Inactive need tdap - nursing to administer upon arrival pregabalin 50 mg capsule RxNorm: 226292 Take 1 Capsule(s) Oral QAM every morning 10/16/19 22 022 Inactive pregabalin 50 mg capsule RxNorm: 374305 Take 1 Capsule(s) Oral QAM every morning 10/16/19 22 022 Inactive pregabalin 50 mg capsule RxNorm: 849500 1 Capsule(s) Oral QAM every morning 10/15/19 22 022 Inactive Shingrix (PF) 50 mcg/0.5 mL intramuscular suspension, kit RxNorm: 5271743 Administer 1/2 Milliliter(s) Intramuscular one time Nursing please administer upon arrival and once administered post a bridge message with date of administration, package clerk, expiration date, and lot# so we can update [facility]. 10/09/19 22 022 Inactive shingrix step 1 Shingrix (PF) 50 mcg/0.5 mL intramuscular suspension, kit RxNorm: 0331811 Administer 1/2 Milliliter(s) Intramuscular one time Nursing please administer upon arrival and once administered post a bridge message with date of administration, package clerk, expiration date, and lot# so we can update [facility]. 10/09/19 22 022 Inactive shingrix step 1 cholecalciferol (vitamin D3) 1,250 mcg (50,000 unit) capsule RxNorm: 244303 Take 1 Capsule(s) Oral QW once a [...] aspart 100 unit/mL (3 mL) subcutaneous RxNorm: 7740197 Inject 10 Unit(s) Subcutaneous QHS every night at bedtime with nighttime snack 10/08/19 22 Inactive Shingrix (PF) 50 mcg/0.5 mL intramuscular suspension, kit RxNorm: 5407247 ADMINISTER 2-DOSE SERIES PER CDC GUIDELINES 10/08/19 22 022 Active Shingrix (PF) 50 mcg/0.5 mL intramuscular suspension, kit RxNorm: 5689769 ADMINISTER 2-DOSE SERIES PER CDC GUIDELINES 10/08/19 22 Inactive Novolog Flexpen U-100 Insulin aspart 100 unit/mL (3 mL) subcutaneous RxNorm: 4699835 Inject 36 Unit(s) Subcutaneous TID in addition to sliding scale 10/08/19 022 Inactive Novofine Autocover 30 gauge x 1/3 needle RxNorm: Use 1 Miscellaneous UD as directed Use 1 needle as directed to administer insulin 5 times a day Dx:E11.42. 10/03/19 22 Inactive ok to substitute with any covered alternative pen needle benzoyl peroxide 10 % topical cleanser RxNorm: 851458 Apply 1 Application Topical QD apply to face, wash rinse and dry once daily (may change to QOD if drying) 08/19/19 22 022 Inactive (%covered by insurance) #60ml refill 11 dx: acne benzoyl peroxide 10 % topical cleanser RxNorm: 557629 Apply 1 Application Topical QD apply to face, wash rinse and dry once daily (may change to QOD if drying) 08/19/19 022 Inactive (%covered by insurance) #60ml refill 11 dx: acne benzoyl peroxide 10 % topical cleanser RxNorm: 781879 Apply 1 Application Topical QD apply to face, wash rinse and dry once daily (may change to QOD if drying) 08/19/19 022 Inactive (%covered by insurance) #60ml refill 11 dx: acne Lyrica 50 mg capsule RxNorm: 628034 Take 1 Capsule(s) Oral QAM every morning Take 1 capsule by mouth once daily 08/19/19 022 Inactive benzoyl peroxide 10 % topical cleanser RxNorm: 603762 Apply 1 Application Topical QD apply to face, wash rinse and dry once daily (may change to QOD if drying) 08/19/19 22 022 Inactive (%covered by insurance) #60ml refill 11 dx: acne Lyrica 100 mg capsule RxNorm: 374323 Take 1 Capsule(s) Oral QHS every night at bedtime Take 1 capsule by mouth once daily at bedtime 08/19/19 22 022 Inactive Lyrica 100 mg capsule RxNorm: 737490 Take 1 Capsule(s) Oral QHS every night at bedtime Take 1 capsule by mouth once daily at bedtime 08/16/19 22 022 Inactive Lyrica 50 mg capsule RxNorm: 723144 Take 1 Capsule(s) Oral QAM every morning Take 1 capsule by mouth once daily 08/16/19 22 022 Inactive Levemir FlexTouch U-100 Insulin 100 unit/mL (3 mL) subcutaneous pen RxNorm: 725546 Inject 86 Unit(s) Subcutaneous BID 08/05/19 22 022 Inactive d/c 83units BID Lyrica 100 mg capsule RxNorm: 786416 Take 1 Capsule(s) Oral QHS every night at bedtime Take 1 capsule by mouth once daily at bedtime 07/14/19 22 022 Inactive Lyrica 50 mg capsule RxNorm: 180367 Take 1 Capsule(s) Oral QAM every morning Take 1 capsule by mouth once daily 07/14/19 22 022 Inactive Levemir FlexTouch U-100 Insulin 100 unit/mL (3 mL) subcutaneous pen RxNorm: 842384 Inject 83 Unit(s) Subcutaneous BID 07/08/19 22 [...] 30 mg tablet,extended release 24 hr RxNorm: 432160 Take 1 Tablet(s) Oral QD 05/05/20 21 No Stop Date Active hydralazine 50 mg tablet RxNorm: 287108 Take 1 Tablet(s) Oral QID 05/05/20 21 022 Inactive venlafaxine ER 225 mg tablet,extended release 24 hr RxNorm: 813234 Take 1 Tablet(s) Oral QD 05/05/20 Inactive venlafaxine ER 225 mg tablet,extended release 24 hr RxNorm: 269467 Take 1 Tablet(s) Oral QD 05/05/20 022 Inactive hydralazine 50 mg tablet RxNorm: 728995 Take 1 Tablet(s) Oral QID 05/05/20 21 Inactive aspirin 81 mg tablet,delayed release RxNorm: 015315 Take 1 Tablet(s) Oral QD 03/31/20 022 Inactive Zetia 10 mg tablet RxNorm: 043089 Take 1 Tablet(s) Oral QD 03/31/20 022 Inactive Vitamin D2 1,250 mcg (50,000 unit) capsule RxNorm: 3043316 Take 1 Capsule(s) Oral QW once a week x 12 weeks 03/31/20 022 Inactive Vitamin D2 1,250 mcg (50,000 unit) capsule RxNorm: 8979324 Take 1 Capsule(s) Oral QW once a week 03/31/20 Inactive Zetia 10 mg tablet RxNorm: 328129 Take 1 Tablet(s) Oral QD 03/31/20 21 021 Inactive hydralazine 25 mg tablet RxNorm: 560048 Take 1 Tablet(s) Oral QID 03/31/20 21 021 Inactive hydralazine 25 mg tablet RxNorm: 443424 Take 1 Tablet(s) Oral QID 03/31/20 021 Inactive hydralazine 10 mg tablet RxNorm: 436291 Take 1 Tablet(s) Oral QID 03/03/20 021 Inactive cephalexin 500 mg tablet RxNorm: 431019 Take 1 Tablet(s) Oral QID 02/27/20 021 Inactive cephalexin 500 mg tablet RxNorm: 861078 Take 1 Tablet(s) Oral QID 02/27/20 021 Inactive lisinopril 40 mg tablet RxNorm: 266591 Take 1 Tablet(s) Oral QD 02/11/20 023 Inactive Eliquis 5 mg tablet RxNorm: 8852141 Take 1 Tablet(s) Oral BID 01/05/20 21 022 Inactive Eliquis 5 mg tablet RxNorm: 9630737 Take 2 Tablet(s) Oral QD 01/01/20 21 021 Inactive Lyrica 50 mg capsule RxNorm: 091249 Take 1 Capsule(s) Oral QAM every morning 12/24/19 21 021 Inactive Lyrica 100 mg capsule RxNorm: 850418 Take 1 Capsule(s) Oral QHS every night at bedtime 12/24/19 021 Inactive clotrimazole 1 % topical cream RxNorm: 624299 Apply to right foot and toes Topical BID 12/04/19 21 023 Inactive metoprolol succinate ER 200 mg tablet,extended release 24 hr RxNorm: 837143 Take 1 Tablet(s) Oral QD 12/04/19 21 023 Inactive ciprofloxacin 500 mg tablet RxNorm: 404133 Take 1 Tablet(s) Oral QD 11/30/19 21 021 Inactive DX ofloxacin otic drops Accu-Chek Guide test strips RxNorm: USE 1 TO CHECK GLUCOSE 4 TIMES DAILY AND NEEDED 11/15/19 21 023 Inactive Blood Glucose Test strips RxNorm: Use 1 Test Strip QID at PRN 11/05/19 21 023 Inactive E11.42 lisinopril 30 mg tablet RxNorm: 040006 Take 1 Tablet(s) Oral QD 10/30/19 021 Inactive lisinopril 20 mg tablet RxNorm: 650705 Take 1 Tablet(s) Oral QD 10/23/19 021 Inactive lisinopril 20 mg tablet RxNorm: 072240 Take 1 Tablet(s) Oral QD 10/23/19 21 021 Inactive lisinopril 10 mg tablet RxNorm: 131361 Take 1 Tablet(s) Oral QD 10/02/19 021 Inactive icosapent ethyl 1 gram capsule RxNorm: 6849059 Take 2 Capsule(s) (2 gm) Oral BID with meals 09/12/19 022 Inactive Okay to dispense one 2gm tab if you have that available. icosapent ethyl 1 gram capsule RxNorm: 6789875 Take 2 Capsule(s) Oral BID 09/12/19 021 Inactive Okay to dispense one 2gm tab if you have that available. amlodipine 10 mg tablet RxNorm: 731759 Take 1 Tablet(s) Oral QD 09/04/19 022 Inactive aspirin 81 mg tablet,delayed release RxNorm: 507017 Take 1 Tablet(s) Oral QD 09/04/19 21 021 Inactive Levemir FlexTouch U-100 Insulin 100 unit/mL (3 mL) subcutaneous pen RxNorm: 269770 Inject 150 Unit(s) Subcutaneous BID 09/04/19 21 022 Inactive venlafaxine ER 150 mg tablet,extended release 24 hr RxNorm: 409189 Take 1 Tablet(s) Oral QD 09/04/19 21 021 Inactive clotrimazole-betame thasone 1 %-0.05 % topical cream RxNorm: 007168 Apply to rash on red area on left abdomen/chest Topical BID 08/10/19 21 021 Inactive amlodipine 5 mg tablet RxNorm: 205961 Take 1 Tablet(s) Oral QD 07/31/19 021 Inactive cephalexin 500 mg tablet RxNorm: 489064 Take 1 Tablet(s) Oral BID BID - Twice Daily 07/31/19 Inactive Start 08/01/20 pantoprazole 40 mg tablet,delayed release RxNorm: 527936 Take 1 Tablet(s) Oral QAM every morning 07/08/19 022 Inactive senna 8.6 mg tablet RxNorm: 469109 Take 1 Tablet(s) Oral QD 07/08/19 022 Inactive pravastatin 80 mg tablet RxNorm: 606455 Take 1 Tablet(s) Oral QHS every night at bedtime 07/08/19 Inactive carbamazepine 200 mg tablet RxNorm: 470313 Take 1 Tablet(s) Oral BID 07/08/19 022 Inactive clopidogrel 75 mg tablet RxNorm: 207163 Take 1 Tablet(s) Oral QD 07/08/19 021 Inactive Blood Glucose Test strips RxNorm: Use 1 Test Strip QID at PRN 07/08/19 Inactive E11.42 Novolog Flexpen U-100 Insulin aspart 100 unit/mL (3 mL) subcutaneous RxNorm: 1456229 Administer per sliding scale Milliliter(s) Subcutaneous TID 151-200: 10 u; 201-250: 20 u; 251-300: 30 u; 301-350: 40 u; 351-400: 50 u. 07/08/19 022 Inactive lisinopril 5 mg tablet RxNorm: 342502 Take 1 Tablet(s) Oral QD 07/08/19 021 Inactive Novolog Flexpen U-100 Insulin aspart 100 unit/mL (3 mL) subcutaneous RxNorm: 3639578 Inject 85 Unit(s) Subcutaneous TID 07/08/19 022 Inactive clotrimazole 1 % topical cream RxNorm: 531710 Apply to bilateral groin areas Topical BID 07/08/19 21 022 Inactive metoprolol succinate ER 200 mg tablet,extended release 24 hr RxNorm: 624334 Take 1 Tablet(s) Oral QD 07/08/19 021 Inactive Vitamin D3 25 mcg (1,000 unit) tablet RxNorm: 894081 Take 1 Tablet(s) Oral QD 07/08/19 Inactive isosorbide dinitrate 30 mg tablet RxNorm: 292763 Take 1 Tablet(s) Oral QD 07/08/19 021 Inactive Levemir FlexTouch U-100 Insulin 100 unit/mL (3 mL) subcutaneous pen RxNorm: 092582 Inject 140 Unit(s) Subcutaneous BID 07/08/19 021 Inactive torsemide 20 mg tablet RxNorm: 743727 Take 1 Tablet(s) Oral QD 07/08/19 023 Inactive venlafaxine 75 mg tablet RxNorm: 762688 Take 1 Tablet(s) Oral QD 07/08/19 021 Inactive acetaminophen 500 mg tablet RxNorm: 938346 Take 1 Tablet(s) Oral TID as needed for headache 06/18/19 021 Inactive acetaminophen 500 mg tablet RxNorm: 930606 Take 1 Tablet(s) Oral TID as needed for headache 06/18/19 021 Inactive Lyrica 100 mg capsule RxNorm: 506773 Take 1 Capsule(s) Oral QHS every night at bedtime 06/11/19 021 Inactive Lyrica 50 mg capsule RxNorm: 724288 Take 1 Capsule(s) Oral QAM every morning 06/10/19 021 Inactive hydrocortisone 2.5 % topical cream RxNorm: 191935 Apply to bilateral groin creases Topical BID 05/15/20 20 021 Inactive clotrimazole 1 % topical cream RxNorm: 073654 Apply to bilateral groin areas Topical BID 05/15/20 20 021 Inactive Lyrica 50 mg capsule RxNorm: 209439 Take 1 Capsule(s) Oral QAM every morning 05/14/20 20 020 Inactive Lyrica 100 mg capsule RxNorm: 636647 Take 1 Capsule(s) Oral QHS every night [...] Inactive Nystop 100,000 unit/gram topical powder RxNorm: 569822 Apply to abd folds, under breasts and L side of groin Topical BID x 14 days, then BID PRN 04/08/20 20 Inactive dx: yeast dermatitis Lyrica 100 mg capsule RxNorm: 986194 Take 1 Capsule(s) Oral QHS every night at bedtime 03/13/20 20 Inactive Lyrica 50 mg capsule RxNorm: 033382 Take 1 Capsule(s) Oral QAM every morning 03/13/20 20 Inactive ketoconazole 2 % shampoo RxNorm: 024244 Apply Topical two times a week with showers 03/11/20 20 Inactive cholecalciferol (vitamin D3) 50 mcg (2,000 unit) tablet RxNorm: 506921 Take 1 Tablet(s) Oral QD 03/11/20 20 021 Inactive Zetia 10 mg tablet RxNorm: 565159 Take 1 Tablet(s) Oral QD 03/07/20 20 021 Inactive Zetia 10 mg tablet RxNorm: 424383 Take 1 Tablet(s) Oral QD 03/07/20 20 Inactive Lyrica 50 mg capsule RxNorm: 185955 Take 1 Capsule(s) Oral QAM every morning 02/15/20 20 Inactive Lyrica 100 mg capsule RxNorm: 845422 Take 1 Capsule(s) Oral QHS every night at bedtime 02/15/20 Inactive Lyrica 100 mg capsule RxNorm: 581696 Take 1 Capsule(s) Oral QHS every night at bedtime 02/15/20 Inactive Lyrica 50 mg capsule RxNorm: 166703 Take 1 Capsule(s) Oral QAM every morning 02/15/20 Inactive venlafaxine ER 75 mg capsule,extended release 24 hr RxNorm: 046267 Take 3 Capsule(s) Oral QD 06/12/2021 Activepolyethylene glycol 3350 17 gram/dose oral powderRxNorm: 977415Jmmw 17=1 capful Gram(s) Oral BID as needed mix with 4-8oz of cjngqg5506/12/2021ctive metoprolol succinate ER 200 mg tablet,extended release 24 hrRxNorm: 198066Aduo 1 Tablet(s) Oral QD08/11/2022ctiveloperamide 2 mg capsuleRxNorm: 969066Rilf 1 Capsule(s) Oral QID as bmlkaa4006/12/2021ctivehydralazine 50 mg tabletRxNorm: 558823Kkvq 1 Tablet(s) Oral QID08/11/2022ctiveicosapent ethyl 1 gram capsule RxNorm: 5264226Xeow 2 Capsule(s) (2 gm) Oral BID with meals/ InactiveOkay to dispense one 2gm tab if you have that available.Levemir FlexTouch U-100 Insulin 100 unit/mL (3 mL) subcutaneous penRxNorm: 430451Ydcets 80 Unit(s) Subcutaneous BID/InactiveNovolog Flexpen U-100 Insulin aspart 100 unit/mL (3 mL) subcutaneousRxNorm: 2926776Ghykpq 30 Unit(s) Subcutaneous TID with meals/Inactive Medication [...] Date Referral: [facility] WPtel: [address] , [address] [id number] USReferralRecords Avcnwqyy74/08/2023Referral: [facility] WPtel: [address] [id number]/12/2022Referral: General CardiologyReferralCompleted 1Referral: General PsychologistReferralClosed Instructions Comment Date Leonid is a Male being seen living at [facility]. Initial B[facility] visit 01/2020. PMHx including DMII, CAD w/ 5 stents, Depression, Seizure Disorder and CKD stage 3. He moved into [facility] in 12/2019 but after a hospitalization 05/2021 he moved to the [facility] to have closer nursing attention. Sister Jyotsna involved in his care cell# [phone] Guardian: Don (tapan met in person 09/01/21), now has Lexii (same group as don)Lab Schedule: * 10/06/2022
--- OUTSIDE RECORDS SUMMARY | 2022-12-08 01:00 | XMS_ITS | CCD ---
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 Milieu Counselor Name Role Phone Tapan Shirley PA-C Primary Care Provider Unavailabl e Tapan Shirley PA-C Chronic Care Management Unavaila ble Summary Purpose DataExchange Insurance Providers Payer name Policy type / Coverage type Covered green party ID Effective Begin Date Effective End Date [place] Part B [id number] Unknown Unknown [place] B [id number] Unknown Unknown Family history Sister Brittany Suggs [...] Snf 09/03/[address]: 9864923 Non-Smoker / No History of Smoking 09/02/[address]: 413801399 No Alcohol Consum ption 09/02/2020 Allergies, Adverse Reactions, Alerts Substance Reaction Codes Entered Date Inactivated Date Status LISINOPRIL RxNorm: 6634386No Inactive DateActiveMetformin FEyKpostqn23/28/2020No Inactive DateActive Problems Condition Codes Effective Dates [...] footICD-10: S98.131A ICD-9: 895.003/ctiveCoronary artery disease involving cachil dehe coronary artery of c[place] dehe heart, angina presence unspecifiedICD-10: I25.10 ICD-9: 414.0103/ctivePre-op [...] vascular disease)ICD-10: I73.9 ICD-9: 443.909/ctiveDepressionICD-10: F32.9 ICD-9: 82945/2ResolvedDVT (deep venous thrombosis)ICD-10: I82.409 ICD-9: 453.4009/2ResolvedEncounter for [...] L91.8 ICD-9: 701.911/1ActiveCallus of heelICD-10: L84 ICD-9: 43647/1ActiveImpacted cerumen, left earICD-10: H61.22 ICD-9: 380.408/ctiveContact with [...] Z20.828 ICD-9: V01.7902/esolvedHyperhidrosis of palmsICD-10: L74.512 ICD-9: 705.0658WfczodKmlknorvOntcvpu64/28/2020ActiveDiabetes mellitus Type 7Rjdreqt32/28/2020ActiveAnemia in chronic kidney diseaseICD-10: D63.1 02/12/2020ResolvedHyperlipidemia, unspecifiedICD-10: E78.509Resolved Medications Medication Codes Instructions Start Date Stop Date Status Fill Instructions nystatin 100,000 unit/gram topical powder RxNorm: 326567 APPLY TO AFFECTED AREAS TOPICALLY 2 TIMES DAILY 11/21/19 23 10/14/ 024 Active Nystop 100,000 unit/gram topical powder RxNorm: 994033 Apply to abd folds, under breasts and L side of groin Topical BID x 14 days, then BID PRN 11/20/19 023 Inactive dx: yeast dermatitis Bengay Ultra Strength 4 %-30 %-10 % topical cream RxNorm: 898803 Apply 1 Gram(s) Topical QID PRN to feet and legs for neuropathic pain 11/11/19 024 Active hydrocortisone 2.5 % topical cream RxNorm: 785122 Apply 1/2 Gram(s) Topical BID as needed 11/10/19 No Stop Date Active clotrimazole 1 % topical cream RxNorm: 991313 Apply 1/2 Gram(s) Topical BID Apply to affected areas of groin, periarea, and abdominal topically 2 times daily 11/10/19 023 Inactive Levemir FlexPen 100 unit/mL (3 mL) solution subcutaneous insulin pen RxNorm: 805198 Inject 30 Unit(s) Subcutaneous BID 10/07/19 024 Active Humulin R U-500 (Concentrated) Insulin 500 unit/mL subcutaneous soln RxNorm: 865340 Inject 100 Unit(s) Subcutaneous TID 10/07/19 024 Active Ozempic 0.25 mg or 0.5 mg (2 mg/3 mL) subcutaneous pen injector RxNorm: 1590873 Inject 1/2 Milligram(s) Subcutaneous QW once a week 10/07/19 024 Active aripiprazole 15 mg tablet RxNorm: 308206 1/2 TAB (7.5MG) ORALLY DAILY (DX:MAJOR DEPRESSIVE DISORDER) 09/23/19 023 Active Accu-Chek Guide test strips RxNorm: Use 1 Test Strip QID 09/15/19 23 024 Active ok to substitute with any covered alternative test strip Lancets,Thin 28 gauge RxNorm: Use 1 as directed QID 09/15/19 23 024 Active torsemide 20 mg tablet RxNorm: 095949 Take 1 Tablet(s) Oral BID 09/09/19 23 024 Active d/c once daily dosing carvedilol 25 mg tablet RxNorm: 792150 Take 1 Tablet(s) Oral QD 08/25/19 024 Active pregabalin 150 mg capsule RxNorm: 017933 1 Capsule(s) Oral HS at bed time 08/18/19 23 023 Active pregabalin 100 mg capsule RxNorm: 917506 1 Capsule(s) Oral QAM every morning 08/18/19 23 023 Active carvedilol 25 mg tablet RxNorm: 376861 1 Tablet(s) Oral QD 07/28/19 23 023 Inactive lisinopril 20 mg tablet RxNorm: 759728 Give 1 Tablet(s) Oral QD 07/28/19 23 023 Inactive Lyrica 150 mg capsule RxNorm: 301510 Take 1 Capsule(s) Oral QHS every night at bedtime 07/19/19 023 Inactive d/c 100mg dose Diflucan 150 mg tablet RxNorm: 199043 Take 1 Tablet(s) Oral QD repeat on day 3 and 6 07/19/19 23 023 Inactive pregabalin 100 mg capsule RxNorm: 470575 Take 1 Capsule(s) Oral QAM every morning 07/19/19 23 023 Inactive gatifloxacin 0.5 % eye drops RxNorm: 302684 Instill 1 Drop(s) as directed TID Instill 1 drop in to affected eye(s) starting 1 day prior to surgery and continue until gone (do not exceed 4 weeks). 07/13/19 23 023 Inactive carvedilol 25 mg tablet RxNorm: 168259 2 Tablet(s) Oral BID 07/13/19 23 023 Inactive Humulin R Regular U-100 Insulin 100 unit/mL injection solution RxNorm: 893617 85 Unit(s) Injection TID 07/13/19 23 023 Inactive ketorolac 0.5 % eye drops RxNorm: 661091 Instill 1 Drop(s) as directed QID Instill 1 drop into affected eye(s) 4 times daily starting 1 day prior to surgery and continue until gone (do not exceed 4 weeks). 07/13/19 23 023 Inactive Diflucan 150 mg tablet RxNorm: 514674 Take 1 Tablet(s) Oral QD repeat on day 3 and 6 06/30/19 23 023 Inactive Accu-Chek Guide test strips RxNorm: Use 1 Test Strip QID Use 1 test strip to monitor blood glucose 4 times daily and as needed. Dx:E11.42. 06/23/19 23 023 Inactive ok to substitute with any covered alternative test strip dextromethorphan-gu aifenesin 10 mg-100 mg/5 mL oral liquid RxNorm: 756574 Take 10 Milliliter(s) Oral every 4 hours as needed for cough 06/19/19 023 Inactive dextromethorphan-gu aifenesin 10 mg-100 mg/5 mL oral liquid RxNorm: 857283 Take 10 Milliliter(s) Oral every 4 hours as needed for cough 06/19/19 023 Inactive Lyrica 150 mg capsule RxNorm: 023819 Take 1 Capsule(s) Oral QHS every night at bedtime 06/18/19 023 Inactive d/c 100mg dose aripiprazole 15 mg tablet RxNorm: 819545 1/2 TAB (7.5MG) ORALLY DAILY (DX:MAJOR DEPRESSIVE DISORDER) 06/05/19 023 Inactive pregabalin 100 mg capsule RxNorm: 510393 1 Capsule(s) Oral QAM every morning 06/02/19 23 023 Inactive Banophen 50 mg capsule RxNorm: 7153733 Take 1 Capsule(s) Oral Q6H every 6 hours as needed 05/19/19 23 No Stop Date Active Novolog Flexpen U-100 Insulin aspart 100 unit/mL (3 mL) subcutaneous RxNorm: 1808526 Inject 10 Unit(s) Subcutaneous QHS every night at bedtime with nighttime snack 04/08/20 22 022 Inactive Novolog Flexpen U-100 Insulin aspart 100 unit/mL (3 mL) subcutaneous RxNorm: 4983940 Inject 42 Unit(s) Subcutaneous TID in addition to sliding scale 04/08/20 22 022 Inactive d/c 36u albuterol sulfate HFA 90 mcg/actuation aerosol inhaler RxNorm: 3329572 Take 2 Puff(s) Inhalation Q4H every four hours as needed as needed for SOB, cough, or wheezing 04/07/20 030 Active Banophen 50 mg capsule RxNorm: 1698309 Take 1 Capsule(s) Oral Q6H every 6 hours as needed 04/06/20 023 Inactive diphenhydramine 50 mg tablet RxNorm: 4372902 Take 1 Tablet(s) Oral Q6H every 6 hours as needed 04/06/20 022 Inactive diphenhydramine 50 mg tablet RxNorm: 4218907 1 Tablet(s) Oral Q6H every 6 hours as needed 04/06/20 022 Inactive Abilify 15 mg tablet RxNorm: 176728 1/2 Tablet(s) Oral QD 03/10/20 023 Inactive Shingrix (PF) 50 mcg/0.5 mL intramuscular suspension, kit RxNorm: 5203315 Administer 1/2 Milliliter(s) Intramuscular QD one time shingrix step 2 ( step 1 given 11/04/21) WITH needle - Nursing please administer upon arrival and once administered post a bridge message with date of administration, neck band maker, expiration date, and lot# so we can update [facility] 02/18/20 022 Inactive dispense with needle Shingrix (PF) 50 mcg/0.5 mL intramuscular suspension, kit RxNorm: 7249334 Administer 1/2 Milliliter(s) Intramuscular QD one time shingrix step 2 ( step 1 given 11/04/21) WITH needle - Nursing please administer upon arrival and once administered post a bridge message with date of administration, neck band maker, expiration date, and lot# so we can update [facility] 02/18/20 22 022 Inactive dispense with needle acetaminophen 500 mg tablet RxNorm: 074141 Take 1 Tablet(s) Oral TID 01/08/20 023 Active d/c PRN order polyethylene glycol 3350 17 gram/dose oral powder RxNorm: 023665 Take 17=1 capful Gram(s) Oral QD mix with 4-8oz of liquid 01/08/20 023 Active take this in addition to BID prn order Lyrica 100 mg capsule RxNorm: 599415 Take 1 Capsule(s) Oral QAM every morning 01/08/20 22 022 Inactive d/c 50mg dose Lyrica 150 mg capsule RxNorm: 882933 Take 1 Capsule(s) Oral QHS every night at bedtime 01/08/20 22 023 Inactive d/c 100mg dose Abilify 5 mg tablet RxNorm: 874196 Take 1 Tablet(s) Oral QD take 1 tab po QD #30 refill 5 dx: MDD 12/12/19 22 022 Inactive Abilify 5 mg tablet RxNorm: 928501 Take 1 Tablet(s) Oral QD take 1 tab po QD #30 refill 5 dx: MDD 12/12/19 22 022 Inactive Novolog Flexpen U-100 Insulin aspart 100 unit/mL (3 mL) subcutaneous RxNorm: 8807825 Inject 42 Unit(s) Subcutaneous TID in addition to sliding scale 12/10/19 22 022 Inactive d/c 36u chlorthalidone 25 mg tablet RxNorm: 840834 Take 1 Tablet(s) Oral QAM every morning 12/10/19 22 023 Inactive pregabalin 50 mg capsule RxNorm: 738143 Take 1 Capsule(s) Oral QAM every morning 11/12/19 22 022 Inactive tetanus-diphtheria toxoids-Td 2 Lf unit-2 Lf unit/0.5 mL IM suspension RxNorm: 139 Take 0.5 Miscellaneous Intramuscular 11/12/19 22 022 Inactive need tdap - nursing to administer upon arrival pregabalin 50 mg capsule RxNorm: 476281 Take 1 Capsule(s) Oral QAM every morning 10/16/19 22 022 Inactive pregabalin 50 mg capsule RxNorm: 881537 Take 1 Capsule(s) Oral QAM every morning 10/16/19 22 022 Inactive pregabalin 50 mg capsule RxNorm: 270983 1 Capsule(s) Oral QAM every morning 10/15/19 22 022 Inactive Shingrix (PF) 50 mcg/0.5 mL intramuscular suspension, kit RxNorm: 6656374 Administer 1/2 Milliliter(s) Intramuscular one time Nursing please administer upon arrival and once administered post a bridge message with date of administration, neck band maker, expiration date, and lot# so we can update [facility]. 10/09/19 22 022 Inactive shingrix step 1 Shingrix (PF) 50 mcg/0.5 mL intramuscular suspension, kit RxNorm: 1930811 Administer 1/2 Milliliter(s) Intramuscular one time Nursing please administer upon arrival and once administered post a bridge message with date of administration, neck band maker, expiration date, and lot# so we can update [facility]. 10/09/19 22 022 Inactive shingrix step 1 cholecalciferol (vitamin D3) 1,250 mcg (50,000 unit) capsule RxNorm: 343427 Take 1 Capsule(s) Oral QW once a [...] aspart 100 unit/mL (3 mL) subcutaneous RxNorm: 4269549 Inject 10 Unit(s) Subcutaneous QHS every night at bedtime with nighttime snack 10/08/19 22 Inactive Shingrix (PF) 50 mcg/0.5 mL intramuscular suspension, kit RxNorm: 5829379 ADMINISTER 2-DOSE SERIES PER CDC GUIDELINES 10/08/19 22 022 Active Shingrix (PF) 50 mcg/0.5 mL intramuscular suspension, kit RxNorm: 9418595 ADMINISTER 2-DOSE SERIES PER CDC GUIDELINES 10/08/19 22 Inactive Novolog Flexpen U-100 Insulin aspart 100 unit/mL (3 mL) subcutaneous RxNorm: 5742245 Inject 36 Unit(s) Subcutaneous TID in addition to sliding scale 10/08/19 022 Inactive Novofine Autocover 30 gauge x 1/3 needle RxNorm: Use 1 Miscellaneous UD as directed Use 1 needle as directed to administer insulin 5 times a day Dx:E11.42. 10/03/19 22 Inactive ok to substitute with any covered alternative pen needle benzoyl peroxide 10 % topical cleanser RxNorm: 121399 Apply 1 Application Topical QD apply to face, wash rinse and dry once daily (may change to QOD if drying) 08/19/19 22 022 Inactive (%covered by insurance) #60ml refill 11 dx: acne benzoyl peroxide 10 % topical cleanser RxNorm: 508228 Apply 1 Application Topical QD apply to face, wash rinse and dry once daily (may change to QOD if drying) 08/19/19 022 Inactive (%covered by insurance) #60ml refill 11 dx: acne benzoyl peroxide 10 % topical cleanser RxNorm: 698407 Apply 1 Application Topical QD apply to face, wash rinse and dry once daily (may change to QOD if drying) 08/19/19 022 Inactive (%covered by insurance) #60ml refill 11 dx: acne Lyrica 50 mg capsule RxNorm: 351922 Take 1 Capsule(s) Oral QAM every morning Take 1 capsule by mouth once daily 08/19/19 022 Inactive benzoyl peroxide 10 % topical cleanser RxNorm: 290556 Apply 1 Application Topical QD apply to face, wash rinse and dry once daily (may change to QOD if drying) 08/19/19 22 022 Inactive (%covered by insurance) #60ml refill 11 dx: acne Lyrica 100 mg capsule RxNorm: 825446 Take 1 Capsule(s) Oral QHS every night at bedtime Take 1 capsule by mouth once daily at bedtime 08/19/19 22 022 Inactive Lyrica 100 mg capsule RxNorm: 239236 Take 1 Capsule(s) Oral QHS every night at bedtime Take 1 capsule by mouth once daily at bedtime 08/16/19 22 022 Inactive Lyrica 50 mg capsule RxNorm: 058410 Take 1 Capsule(s) Oral QAM every morning Take 1 capsule by mouth once daily 08/16/19 22 022 Inactive Levemir FlexTouch U-100 Insulin 100 unit/mL (3 mL) subcutaneous pen RxNorm: 793462 Inject 86 Unit(s) Subcutaneous BID 08/05/19 22 022 Inactive d/c 83units BID Lyrica 100 mg capsule RxNorm: 036532 Take 1 Capsule(s) Oral QHS every night at bedtime Take 1 capsule by mouth once daily at bedtime 07/14/19 22 022 Inactive Lyrica 50 mg capsule RxNorm: 009172 Take 1 Capsule(s) Oral QAM every morning Take 1 capsule by mouth once daily 07/14/19 22 022 Inactive Levemir FlexTouch U-100 Insulin 100 unit/mL (3 mL) subcutaneous pen RxNorm: 049914 Inject 83 Unit(s) Subcutaneous BID 07/08/19 22 [...] 30 mg tablet,extended release 24 hr RxNorm: 569018 Take 1 Tablet(s) Oral QD 05/05/20 21 No Stop Date Active hydralazine 50 mg tablet RxNorm: 825574 Take 1 Tablet(s) Oral QID 05/05/20 21 022 Inactive venlafaxine ER 225 mg tablet,extended release 24 hr RxNorm: 142823 Take 1 Tablet(s) Oral QD 05/05/20 Inactive venlafaxine ER 225 mg tablet,extended release 24 hr RxNorm: 301143 Take 1 Tablet(s) Oral QD 05/05/20 022 Inactive hydralazine 50 mg tablet RxNorm: 482977 Take 1 Tablet(s) Oral QID 05/05/20 21 Inactive aspirin 81 mg tablet,delayed release RxNorm: 360775 Take 1 Tablet(s) Oral QD 03/31/20 022 Inactive Zetia 10 mg tablet RxNorm: 715253 Take 1 Tablet(s) Oral QD 03/31/20 022 Inactive Vitamin D2 1,250 mcg (50,000 unit) capsule RxNorm: 4760520 Take 1 Capsule(s) Oral QW once a week x 12 weeks 03/31/20 022 Inactive Vitamin D2 1,250 mcg (50,000 unit) capsule RxNorm: 5611016 Take 1 Capsule(s) Oral QW once a week 03/31/20 Inactive Zetia 10 mg tablet RxNorm: 295912 Take 1 Tablet(s) Oral QD 03/31/20 21 021 Inactive hydralazine 25 mg tablet RxNorm: 314926 Take 1 Tablet(s) Oral QID 03/31/20 21 021 Inactive hydralazine 25 mg tablet RxNorm: 485432 Take 1 Tablet(s) Oral QID 03/31/20 021 Inactive hydralazine 10 mg tablet RxNorm: 293033 Take 1 Tablet(s) Oral QID 03/03/20 021 Inactive cephalexin 500 mg tablet RxNorm: 182716 Take 1 Tablet(s) Oral QID 02/27/20 021 Inactive cephalexin 500 mg tablet RxNorm: 297244 Take 1 Tablet(s) Oral QID 02/27/20 021 Inactive lisinopril 40 mg tablet RxNorm: 066216 Take 1 Tablet(s) Oral QD 02/11/20 023 Inactive Eliquis 5 mg tablet RxNorm: 5580526 Take 1 Tablet(s) Oral BID 01/05/20 21 022 Inactive Eliquis 5 mg tablet RxNorm: 1182667 Take 2 Tablet(s) Oral QD 01/01/20 21 021 Inactive Lyrica 50 mg capsule RxNorm: 457788 Take 1 Capsule(s) Oral QAM every morning 12/24/19 21 021 Inactive Lyrica 100 mg capsule RxNorm: 250052 Take 1 Capsule(s) Oral QHS every night at bedtime 12/24/19 021 Inactive clotrimazole 1 % topical cream RxNorm: 681919 Apply to right foot and toes Topical BID 12/04/19 21 023 Inactive metoprolol succinate ER 200 mg tablet,extended release 24 hr RxNorm: 901444 Take 1 Tablet(s) Oral QD 12/04/19 21 023 Inactive ciprofloxacin 500 mg tablet RxNorm: 905467 Take 1 Tablet(s) Oral QD 11/30/19 21 021 Inactive DX ofloxacin otic drops Accu-Chek Guide test strips RxNorm: USE 1 TO CHECK GLUCOSE 4 TIMES DAILY AND NEEDED 11/15/19 21 023 Inactive Blood Glucose Test strips RxNorm: Use 1 Test Strip QID at PRN 11/05/19 21 023 Inactive E11.42 lisinopril 30 mg tablet RxNorm: 230490 Take 1 Tablet(s) Oral QD 10/30/19 021 Inactive lisinopril 20 mg tablet RxNorm: 259112 Take 1 Tablet(s) Oral QD 10/23/19 021 Inactive lisinopril 20 mg tablet RxNorm: 102503 Take 1 Tablet(s) Oral QD 10/23/19 21 021 Inactive lisinopril 10 mg tablet RxNorm: 043740 Take 1 Tablet(s) Oral QD 10/02/19 021 Inactive icosapent ethyl 1 gram capsule RxNorm: 6675505 Take 2 Capsule(s) (2 gm) Oral BID with meals 09/12/19 022 Inactive Okay to dispense one 2gm tab if you have that available. icosapent ethyl 1 gram capsule RxNorm: 0883628 Take 2 Capsule(s) Oral BID 09/12/19 021 Inactive Okay to dispense one 2gm tab if you have that available. amlodipine 10 mg tablet RxNorm: 200404 Take 1 Tablet(s) Oral QD 09/04/19 022 Inactive aspirin 81 mg tablet,delayed release RxNorm: 169856 Take 1 Tablet(s) Oral QD 09/04/19 21 021 Inactive Levemir FlexTouch U-100 Insulin 100 unit/mL (3 mL) subcutaneous pen RxNorm: 791643 Inject 150 Unit(s) Subcutaneous BID 09/04/19 21 022 Inactive venlafaxine ER 150 mg tablet,extended release 24 hr RxNorm: 280009 Take 1 Tablet(s) Oral QD 09/04/19 21 021 Inactive clotrimazole-betame thasone 1 %-0.05 % topical cream RxNorm: 134196 Apply to rash on red area on left abdomen/chest Topical BID 08/10/19 21 021 Inactive amlodipine 5 mg tablet RxNorm: 547882 Take 1 Tablet(s) Oral QD 07/31/19 021 Inactive cephalexin 500 mg tablet RxNorm: 165992 Take 1 Tablet(s) Oral BID BID - Twice Daily 07/31/19 Inactive Start 08/01/20 pantoprazole 40 mg tablet,delayed release RxNorm: 859012 Take 1 Tablet(s) Oral QAM every morning 07/08/19 022 Inactive senna 8.6 mg tablet RxNorm: 009145 Take 1 Tablet(s) Oral QD 07/08/19 022 Inactive pravastatin 80 mg tablet RxNorm: 952514 Take 1 Tablet(s) Oral QHS every night at bedtime 07/08/19 Inactive carbamazepine 200 mg tablet RxNorm: 112980 Take 1 Tablet(s) Oral BID 07/08/19 022 Inactive clopidogrel 75 mg tablet RxNorm: 248999 Take 1 Tablet(s) Oral QD 07/08/19 021 Inactive Blood Glucose Test strips RxNorm: Use 1 Test Strip QID at PRN 07/08/19 Inactive E11.42 Novolog Flexpen U-100 Insulin aspart 100 unit/mL (3 mL) subcutaneous RxNorm: 8777680 Administer per sliding scale Milliliter(s) Subcutaneous TID 151-200: 10 u; 201-250: 20 u; 251-300: 30 u; 301-350: 40 u; 351-400: 50 u. 07/08/19 022 Inactive lisinopril 5 mg tablet RxNorm: 229012 Take 1 Tablet(s) Oral QD 07/08/19 021 Inactive Novolog Flexpen U-100 Insulin aspart 100 unit/mL (3 mL) subcutaneous RxNorm: 1505333 Inject 85 Unit(s) Subcutaneous TID 07/08/19 022 Inactive clotrimazole 1 % topical cream RxNorm: 889159 Apply to bilateral groin areas Topical BID 07/08/19 21 022 Inactive metoprolol succinate ER 200 mg tablet,extended release 24 hr RxNorm: 103741 Take 1 Tablet(s) Oral QD 07/08/19 021 Inactive Vitamin D3 25 mcg (1,000 unit) tablet RxNorm: 788772 Take 1 Tablet(s) Oral QD 07/08/19 Inactive isosorbide dinitrate 30 mg tablet RxNorm: 645450 Take 1 Tablet(s) Oral QD 07/08/19 021 Inactive Levemir FlexTouch U-100 Insulin 100 unit/mL (3 mL) subcutaneous pen RxNorm: 225677 Inject 140 Unit(s) Subcutaneous BID 07/08/19 021 Inactive torsemide 20 mg tablet RxNorm: 516355 Take 1 Tablet(s) Oral QD 07/08/19 023 Inactive venlafaxine 75 mg tablet RxNorm: 218631 Take 1 Tablet(s) Oral QD 07/08/19 021 Inactive acetaminophen 500 mg tablet RxNorm: 775251 Take 1 Tablet(s) Oral TID as needed for headache 06/18/19 021 Inactive acetaminophen 500 mg tablet RxNorm: 900672 Take 1 Tablet(s) Oral TID as needed for headache 06/18/19 021 Inactive Lyrica 100 mg capsule RxNorm: 998570 Take 1 Capsule(s) Oral QHS every night at bedtime 06/11/19 021 Inactive Lyrica 50 mg capsule RxNorm: 551901 Take 1 Capsule(s) Oral QAM every morning 06/10/19 021 Inactive hydrocortisone 2.5 % topical cream RxNorm: 745147 Apply to bilateral groin creases Topical BID 05/15/20 20 021 Inactive clotrimazole 1 % topical cream RxNorm: 089305 Apply to bilateral groin areas Topical BID 05/15/20 20 021 Inactive Lyrica 50 mg capsule RxNorm: 990994 Take 1 Capsule(s) Oral QAM every morning 05/14/20 20 020 Inactive Lyrica 100 mg capsule RxNorm: 379400 Take 1 Capsule(s) Oral QHS every night [...] Inactive Nystop 100,000 unit/gram topical powder RxNorm: 786024 Apply to abd folds, under breasts and L side of groin Topical BID x 14 days, then BID PRN 04/08/20 20 Inactive dx: yeast dermatitis Lyrica 100 mg capsule RxNorm: 292700 Take 1 Capsule(s) Oral QHS every night at bedtime 03/13/20 20 Inactive Lyrica 50 mg capsule RxNorm: 981514 Take 1 Capsule(s) Oral QAM every morning 03/13/20 20 Inactive ketoconazole 2 % shampoo RxNorm: 560592 Apply Topical two times a week with showers 03/11/20 20 Inactive cholecalciferol (vitamin D3) 50 mcg (2,000 unit) tablet RxNorm: 377886 Take 1 Tablet(s) Oral QD 03/11/20 20 021 Inactive Zetia 10 mg tablet RxNorm: 481682 Take 1 Tablet(s) Oral QD 03/07/20 20 021 Inactive Zetia 10 mg tablet RxNorm: 511203 Take 1 Tablet(s) Oral QD 03/07/20 20 Inactive Lyrica 50 mg capsule RxNorm: 235061 Take 1 Capsule(s) Oral QAM every morning 02/15/20 20 Inactive Lyrica 100 mg capsule RxNorm: 217763 Take 1 Capsule(s) Oral QHS every night at bedtime 02/15/20 Inactive Lyrica 100 mg capsule RxNorm: 345880 Take 1 Capsule(s) Oral QHS every night at bedtime 02/15/20 Inactive Lyrica 50 mg capsule RxNorm: 802850 Take 1 Capsule(s) Oral QAM every morning 02/15/20 Inactive venlafaxine ER 75 mg capsule,extended release 24 hr RxNorm: 723842 Take 3 Capsule(s) Oral QD 06/12/2021 Activepolyethylene glycol 3350 17 gram/dose oral powderRxNorm: 714265Xgzl 17=1 capful Gram(s) Oral BID as needed mix with 4-8oz of gvlfct2306/12/2021ctive metoprolol succinate ER 200 mg tablet,extended release 24 hrRxNorm: 004098Cdtg 1 Tablet(s) Oral QD08/11/2022ctiveloperamide 2 mg capsuleRxNorm: 587398Xpkw 1 Capsule(s) Oral QID as evyiru1506/12/2021ctivehydralazine 50 mg tabletRxNorm: 252834Dnwp 1 Tablet(s) Oral QID08/11/2022ctiveicosapent ethyl 1 gram capsule RxNorm: 3653042Bsoo 2 Capsule(s) (2 gm) Oral BID with meals/ InactiveOkay to dispense one 2gm tab if you have that available.Levemir FlexTouch U-100 Insulin 100 unit/mL (3 mL) subcutaneous penRxNorm: 608856Zaepvp 80 Unit(s) Subcutaneous BID/InactiveNovolog Flexpen U-100 Insulin aspart 100 unit/mL (3 mL) subcutaneousRxNorm: 6859896Ahofmc 30 Unit(s) Subcutaneous TID with meals/Inactive Medication [...] Codes Status Date Referral: [facility] WPtel: [address] , [address] [id number] USReferralRecords Szsodvpy71/08/2023Referral: [facility] WPtel: [address] [id number] MLAxexneucJmezaglnm13/12/2022Referral: General CardiologyReferralCompleted 1Referral: General PsychologistReferralClosed Instructions Comment Date Leonid is a Male being seen living at [facility]. Initial BPS visit 01/2020. PMHx including DMII, CAD w/ 5 stents, Depression, Seizure Disorder and CKD stage 3. He moved into [facility] in 12/2019 but after a hospitalization 05/2021 he moved to the [facility] to have closer nursing attention. Sister Jyotsna involved in his care cell# [phone] Guardian: Don (tapan met in person 09/01/21), now has Lexii (same group as don)Lab Schedule: * 10/06/2022
--- OUTSIDE RECORDS SUMMARY | 2022-12-08 01:00 | XMS_ITS | CCD ---
Author Name Tapan Shirley PA-C Address [address] [facility] [address] [place] [address] Phone Organization [facility] Phone Care Team Providers Care Database Modeler Name Role Phone Tapan Shirley PA-C Primary Care Provider Unavailabl e Tapan Shirley PA-C Chronic Care Management Unavaila ble Summary Purpose DataExchange Insurance Providers Payer name Policy type / Coverage type Covered libertarian ID Effective Begin Date Effective End Date Medicare [place] Medicare Part B [id number] Unknown Unknown Medicaid [place] Medicare Part B [id number] Unknown Unknown Family history Sister Brittany Suggs [...] Mcc 09/03/[address]: 6493439 Non-Smoker / No History of Smoking 09/02/[address]: 018178983 No Alcohol Consum ption 09/02/2020 Allergies, Adverse Reactions, Alerts Substance Reaction Codes Entered Date Inactivated Date Status LISINOPRIL RxNorm: 8516503No Inactive DateActiveMetformin ZYpTiwscek31/28/2020No Inactive DateActive Problems Condition Codes Effective Dates Condition St atus Hyperlipidemia associated with type 2 di abetes mellitus ICD-10: E11.69 ICD-9: 250.80011/10/2022ctiveHypertensive heart disease without heart failure ICD-10: I11.9 ICD-9: 402.9006ctiveOnychogryposisICD-10: L60.2 ICD-9: 703.8011/10/2022ctiveParaparesis of both lower limbsICD-10: G82.20 ICD-9: 344.106/ctiveStage 2 chronic kidney disease due to type [...] footICD-10: S98.131A ICD-9: 895.003/ctiveCoronary artery disease involving king salmon coronary artery of king salmon heart, angina presence unspecifiedICD-10: I25.10 ICD-9: 414.0103/ctivePre-op [...] thrombosisICD-10: Z86.718 ICD-9: V12.5109/ctiveHypercoagulable stateICD-10: D68.59 ICD-9: 289.8109ctivePVD (peripheral vascular disease)ICD-10: I73.9 ICD-9: 443.909/ctiveDepressionICD-10: F32.9 ICD-9: 12628/2ResolvedDVT (deep venous thrombosis)ICD-10: I82.409 ICD-9: 453.4009/2ResolvedEncounter for immunizationICD-10: Z23 ICD-9: V03.89092ResolvedLong term (current) use of insulinICD-10: Z79.4 2ResolvedMuscular painICD-10: M79.10 ICD-9: 729.109/2ResolvedDandruff in adultICD-10: L21.0 ICD-9: 690.1808ctiveHypertension associated with diabetesICD-10: E11.59 ICD-9: 250.8008/2ResolvedHistory of anemia due to CKDICD-10: N18.9 ICD-9: 585.907/ctiveStage 2 chronic kidney diseaseICD-10: N18.2 ICD-9: 585.207/2ActiveGout due to renal impairmentICD-10: M10.30 ICD-9: 274.10062ActivePreventative health careICD-10: Z00.00 ICD-9: V70.006/ctiveLearning disabilityICD-10: F81.9 ICD-9: 315.212/ctiveSkin tagICD-10: L91.8 ICD-9: 701.911/ctiveCallus of heelICD-10: L84 ICD-9: 25825/ctiveImpacted cerumen, left earICD-10: H61.22 ICD-9: 380.408/ctiveContact with [...] Z20.828 ICD-9: V01.7902esolvedHyperhidrosis of palmsICD-10: L74.512 ICD-9: 705.1621VuyamlNmvamyjkMgtfhnp58/28/2020ActiveDiabetes mellitus Type 3Ptwzuiw91/28/2020ActiveAnemia in chronic kidney diseaseICD-10: D63.1 02/12/2020ResolvedHyperlipidemia, unspecifiedICD-10: E78.509Resolved Medications Medication Codes Instructions Start Date Stop Date Status Fill Instructions nystatin 100,000 unit/gram topical powder RxNorm: 405859 APPLY TO AFFECTED AREAS TOPICALLY 2 TIMES DAILY 11/21/19 024 Active Nystop 100,000 unit/gram topical powder RxNorm: 139786 Apply to abd folds, under breasts and L side of groin Topical BID x 14 days, then BID PRN 11/20/19 023 Inactive dx: yeast dermatitis Bengay Ultra Strength 4 %-30 %-10 % topical cream RxNorm: 987212 Apply 1 Gram(s) Topical QID PRN to feet and legs for neuropathic pain 11/11/19 024 Active hydrocortisone 2.5 % topical cream RxNorm: 157889 Apply 1/2 Gram(s) Topical BID as needed 11/10/19 No Stop Date Active clotrimazole 1 % topical cream RxNorm: 902293 Apply 1/2 Gram(s) Topical BID Apply to affected areas of groin, periarea, and abdominal topically 2 times daily 11/10/19 023 Inactive Levemir FlexPen 100 unit/mL (3 mL) solution subcutaneous insulin pen RxNorm: 694277 Inject 30 Unit(s) Subcutaneous BID 10/07/19 024 Active Humulin R U-500 (Concentrated) Insulin 500 unit/mL subcutaneous soln RxNorm: 689415 Inject 100 Unit(s) Subcutaneous TID 10/07/19 024 Active Ozempic 0.25 mg or 0.5 mg (2 mg/3 mL) subcutaneous pen injector RxNorm: 1190482 Inject 1/2 Milligram(s) Subcutaneous QW once a week 10/07/19 024 Active aripiprazole 15 mg tablet RxNorm: 919706 1/2 TAB (7.5MG) ORALLY DAILY (DX:MAJOR DEPRESSIVE DISORDER) 09/23/19 023 Active Accu-Chek Guide test strips RxNorm: Use 1 Test Strip QID 09/15/19 23 024 Active ok to substitute with any covered alternative test strip Lancets,Thin 28 gauge RxNorm: Use 1 as directed QID 09/15/19 23 024 Active torsemide 20 mg tablet RxNorm: 653117 Take 1 Tablet(s) Oral BID 09/09/19 23 024 Active d/c once daily dosing carvedilol 25 mg tablet RxNorm: 020136 Take 1 Tablet(s) Oral QD 08/25/19 23 024 Active pregabalin 150 mg capsule RxNorm: 849930 1 Capsule(s) Oral HS at bed time 08/18/19 23 023 Active pregabalin 100 mg capsule RxNorm: 263951 1 Capsule(s) Oral QAM every morning 08/18/19 23 023 Active carvedilol 25 mg tablet RxNorm: 042984 1 Tablet(s) Oral QD 07/28/19 23 023 Inactive lisinopril 20 mg tablet RxNorm: 094202 Give 1 Tablet(s) Oral QD 07/28/19 23 023 Inactive Lyrica 150 mg capsule RxNorm: 924666 Take 1 Capsule(s) Oral QHS every night at bedtime 07/19/19 23 023 Inactive d/c 100mg dose Diflucan 150 mg tablet RxNorm: 879114 Take 1 Tablet(s) Oral QD repeat on day 3 and 6 07/19/19 23 023 Inactive pregabalin 100 mg capsule RxNorm: 225262 Take 1 Capsule(s) Oral QAM every morning 07/19/19 23 023 Inactive gatifloxacin 0.5 % eye drops RxNorm: 696856 Instill 1 Drop(s) as directed TID Instill 1 drop in to affected eye(s) starting 1 day prior to surgery and continue until gone (do not exceed 4 weeks). 07/13/19 23 023 Inactive carvedilol 25 mg tablet RxNorm: 106861 2 Tablet(s) Oral BID 07/13/19 23 023 Inactive Humulin R Regular U-100 Insulin 100 unit/mL injection solution RxNorm: 190935 85 Unit(s) Injection TID 07/13/19 23 023 Inactive ketorolac 0.5 % eye drops RxNorm: 499558 Instill 1 Drop(s) as directed QID Instill 1 drop into affected eye(s) 4 times daily starting 1 day prior to surgery and continue until gone (do not exceed 4 weeks). 07/13/19 23 023 Inactive Diflucan 150 mg tablet RxNorm: 077531 Take 1 Tablet(s) Oral QD repeat on day 3 and 6 06/30/19 23 023 Inactive Accu-Chek Guide test strips RxNorm: Use 1 Test Strip QID Use 1 test strip to monitor blood glucose 4 times daily and as needed. Dx:E11.42. 06/23/19 023 Inactive ok to substitute with any covered alternative test strip dextromethorphan-gu aifenesin 10 mg-100 mg/5 mL oral liquid RxNorm: 403846 Take 10 Milliliter(s) Oral every 4 hours as needed for cough 06/19/19 023 Inactive dextromethorphan-gu aifenesin 10 mg-100 mg/5 mL oral liquid RxNorm: 613603 Take 10 Milliliter(s) Oral every 4 hours as needed for cough 06/19/19 023 Inactive Lyrica 150 mg capsule RxNorm: 013822 Take 1 Capsule(s) Oral QHS every night at bedtime 06/18/19 023 Inactive d/c 100mg dose aripiprazole 15 mg tablet RxNorm: 118027 1/2 TAB (7.5MG) ORALLY DAILY (DX:MAJOR DEPRESSIVE DISORDER) 06/05/19 23 023 Inactive pregabalin 100 mg capsule RxNorm: 375104 1 Capsule(s) Oral QAM every morning 06/02/19 23 023 Inactive Banophen 50 mg capsule RxNorm: 3700429 Take 1 Capsule(s) Oral Q6H every 6 hours as needed 05/19/19 23 No Stop Date Active Novolog Flexpen U-100 Insulin aspart 100 unit/mL (3 mL) subcutaneous RxNorm: 6355651 Inject 10 Unit(s) Subcutaneous QHS every night at bedtime with nighttime snack 04/08/20 22 022 Inactive Novolog Flexpen U-100 Insulin aspart 100 unit/mL (3 mL) subcutaneous RxNorm: 2660498 Inject 42 Unit(s) Subcutaneous TID in addition to sliding scale 04/08/20 022 Inactive d/c 36u albuterol sulfate HFA 90 mcg/actuation aerosol inhaler RxNorm: 8253789 Take 2 Puff(s) Inhalation Q4H every four hours as needed as needed for SOB, cough, or wheezing 04/07/20 030 Active Banophen 50 mg capsule RxNorm: 7119682 Take 1 Capsule(s) Oral Q6H every 6 hours as needed 04/06/20 023 Inactive diphenhydramine 50 mg tablet RxNorm: 5332510 Take 1 Tablet(s) Oral Q6H every 6 hours as needed 04/06/20 022 Inactive diphenhydramine 50 mg tablet RxNorm: 6413480 1 Tablet(s) Oral Q6H every 6 hours as needed 04/06/20 022 Inactive Abilify 15 mg tablet RxNorm: 115972 1/2 Tablet(s) Oral QD 03/10/20 023 Inactive Shingrix (PF) 50 mcg/0.5 mL intramuscular suspension, kit RxNorm: 9746483 Administer 1/2 Milliliter(s) Intramuscular QD one time shingrix step 2 ( step 1 given 11/04/21) WITH needle - Nursing please administer upon arrival and once administered post a bridge message with date of administration, sign wirer, expiration date, and lot# so we can update [facility] 02/18/20 22 022 Inactive dispense with needle Shingrix (PF) 50 mcg/0.5 mL intramuscular suspension, kit RxNorm: 9123201 Administer 1/2 Milliliter(s) Intramuscular QD one time shingrix step 2 ( step 1 given 11/04/21) WITH needle - Nursing please administer upon arrival and once administered post a bridge message with date of administration, sign wirer, expiration date, and lot# so we can update [facility] 02/18/20 22 022 Inactive dispense with needle acetaminophen 500 mg tablet RxNorm: 086876 Take 1 Tablet(s) Oral TID 01/08/20 22 023 Active d/c PRN order polyethylene glycol 3350 17 gram/dose oral powder RxNorm: 269405 Take 17=1 capful Gram(s) Oral QD mix with 4-8oz of liquid 01/08/20 22 023 Active take this in addition to BID prn order Lyrica 100 mg capsule RxNorm: 388192 Take 1 Capsule(s) Oral QAM every morning 01/08/20 22 022 Inactive d/c 50mg dose Lyrica 150 mg capsule RxNorm: 868318 Take 1 Capsule(s) Oral QHS every night at bedtime 01/08/20 22 023 Inactive d/c 100mg dose Abilify 5 mg tablet RxNorm: 166250 Take 1 Tablet(s) Oral QD take 1 tab po QD #30 refill 5 dx: MDD 12/12/19 22 022 Inactive Abilify 5 mg tablet RxNorm: 039555 Take 1 Tablet(s) Oral QD take 1 tab po QD #30 refill 5 dx: MDD 12/12/19 22 022 Inactive Novolog Flexpen U-100 Insulin aspart 100 unit/mL (3 mL) subcutaneous RxNorm: 8437872 Inject 42 Unit(s) Subcutaneous TID in addition to sliding scale 12/10/19 22 Inactive d/c 36u chlorthalidone 25 mg tablet RxNorm: 367970 Take 1 Tablet(s) Oral QAM every morning 12/10/19 22 023 Inactive pregabalin 50 mg capsule RxNorm: 686845 Take 1 Capsule(s) Oral QAM every morning 11/12/19 22 022 Inactive tetanus-diphtheria toxoids-Td 2 Lf unit-2 Lf unit/0.5 mL IM suspension RxNorm: 139 Take 0.5 Miscellaneous Intramuscular 11/12/19 22 022 Inactive need tdap - nursing to administer upon arrival pregabalin 50 mg capsule RxNorm: 486540 Take 1 Capsule(s) Oral QAM every morning 10/16/19 22 022 Inactive pregabalin 50 mg capsule RxNorm: 132614 Take 1 Capsule(s) Oral QAM every morning 10/16/19 22 022 Inactive pregabalin 50 mg capsule RxNorm: 482628 1 Capsule(s) Oral QAM every morning 10/15/19 22 Inactive Shingrix (PF) 50 mcg/0.5 mL intramuscular suspension, kit RxNorm: 9795534 Administer 1/2 Milliliter(s) Intramuscular one time Nursing please administer upon arrival and once administered post a bridge message with date of administration, sign wirer, expiration date, and lot# so we can update [facility]. 10/09/19 22 022 Inactive shingrix step 1 Shingrix (PF) 50 mcg/0.5 mL intramuscular suspension, kit RxNorm: 3663451 Administer 1/2 Milliliter(s) Intramuscular one time Nursing please administer upon arrival and once administered post a bridge message with date of administration, sign wirer, expiration date, and lot# so we can update [facility]. 10/09/19 22 022 Inactive shingrix step 1 cholecalciferol (vitamin D3) 1,250 mcg (50,000 unit) capsule RxNorm: 314843 Take 1 Capsule(s) Oral QW once a [...] aspart 100 unit/mL (3 mL) subcutaneous RxNorm: 3525735 Inject 10 Unit(s) Subcutaneous QHS every night at bedtime with nighttime snack 10/08/19 22 Inactive Shingrix (PF) 50 mcg/0.5 mL intramuscular suspension, kit RxNorm: 2121660 ADMINISTER 2-DOSE SERIES PER CDC GUIDELINES 10/08/19 22 022 Active Shingrix (PF) 50 mcg/0.5 mL intramuscular suspension, kit RxNorm: 7851961 ADMINISTER 2-DOSE SERIES PER CDC GUIDELINES 10/08/19 Inactive Novolog Flexpen U-100 Insulin aspart 100 unit/mL (3 mL) subcutaneous RxNorm: 0035016 Inject 36 Unit(s) Subcutaneous TID in addition to sliding scale 10/08/19 Inactive Novofine Autocover 30 gauge x 1/3 needle RxNorm: Use 1 Miscellaneous UD as directed Use 1 needle as directed to administer insulin 5 times a day Dx:E11.42. 10/03/19 Inactive ok to substitute with any covered alternative pen needle benzoyl peroxide 10 % topical cleanser RxNorm: 632059 Apply 1 Application Topical QD apply to face, wash rinse and dry once daily (may change to QOD if drying) 08/19/19 022 Inactive (%covered by insurance) #60ml refill 11 dx: acne benzoyl peroxide 10 % topical cleanser RxNorm: 136905 Apply 1 Application Topical QD apply to face, wash rinse and dry once daily (may change to QOD if drying) 08/19/19 022 Inactive (%covered by insurance) #60ml refill 11 dx: acne benzoyl peroxide 10 % topical cleanser RxNorm: 054235 Apply 1 Application Topical QD apply to face, wash rinse and dry once daily (may change to QOD if drying) 08/19/19 Inactive (%covered by insurance) #60ml refill 11 dx: acne Lyrica 50 mg capsule RxNorm: 141391 Take 1 Capsule(s) Oral QAM every morning Take 1 capsule by mouth once daily 08/19/19 22 Inactive benzoyl peroxide 10 % topical cleanser RxNorm: 314010 Apply 1 Application Topical QD apply to face, wash rinse and dry once daily (may change to QOD if drying) 08/19/19 22 022 Inactive (%covered by insurance) #60ml refill 11 dx: acne Lyrica 100 mg capsule RxNorm: 971438 Take 1 Capsule(s) Oral QHS every night at bedtime Take 1 capsule by mouth once daily at bedtime 08/19/19 22 Inactive Lyrica 100 mg capsule RxNorm: 149691 Take 1 Capsule(s) Oral QHS every night at bedtime Take 1 capsule by mouth once daily at bedtime 08/16/19 22 022 Inactive Lyrica 50 mg capsule RxNorm: 264164 Take 1 Capsule(s) Oral QAM every morning Take 1 capsule by mouth once daily 08/16/19 22 022 Inactive Levemir FlexTouch U-100 Insulin 100 unit/mL (3 mL) subcutaneous pen RxNorm: 254910 Inject 86 Unit(s) Subcutaneous BID 08/05/19 22 022 Inactive d/c 83units BID Lyrica 100 mg capsule RxNorm: 364343 Take 1 Capsule(s) Oral QHS every night at bedtime Take 1 capsule by mouth once daily at bedtime 07/14/19 22 022 Inactive Lyrica 50 mg capsule RxNorm: 297182 Take 1 Capsule(s) Oral QAM every morning Take 1 capsule by mouth once daily 07/14/19 22 022 Inactive Levemir FlexTouch U-100 Insulin 100 unit/mL (3 mL) subcutaneous pen RxNorm: 149934 Inject 83 Unit(s) Subcutaneous BID 07/08/19 22 [...] 30 mg tablet,extended release 24 hr RxNorm: 427851 Take 1 Tablet(s) Oral QD 05/05/20 No Stop Date Active hydralazine 50 mg tablet RxNorm: 129294 Take 1 Tablet(s) Oral QID 05/05/20 21 022 Inactive venlafaxine ER 225 mg tablet,extended release 24 hr RxNorm: 018740 Take 1 Tablet(s) Oral QD 05/05/20 21 Inactive venlafaxine ER 225 mg tablet,extended release 24 hr RxNorm: 420071 Take 1 Tablet(s) Oral QD 05/05/20 21 022 Inactive hydralazine 50 mg tablet RxNorm: 184759 Take 1 Tablet(s) Oral QID 05/05/20 21 021 Inactive aspirin 81 mg tablet,delayed release RxNorm: 237112 Take 1 Tablet(s) Oral QD 03/31/20 21 022 Inactive Zetia 10 mg tablet RxNorm: 214536 Take 1 Tablet(s) Oral QD 03/31/20 21 022 Inactive Vitamin D2 1,250 mcg (50,000 unit) capsule RxNorm: 4223328 Take 1 Capsule(s) Oral QW once a week x 12 weeks 03/31/20 022 Inactive Vitamin D2 1,250 mcg (50,000 unit) capsule RxNorm: 9255497 Take 1 Capsule(s) Oral QW once a week 03/31/20 021 Inactive Zetia 10 mg tablet RxNorm: 225426 Take 1 Tablet(s) Oral QD 03/31/20 021 Inactive hydralazine 25 mg tablet RxNorm: 824080 Take 1 Tablet(s) Oral QID 03/31/20 021 Inactive hydralazine 25 mg tablet RxNorm: 235186 Take 1 Tablet(s) Oral QID 03/31/20 021 Inactive hydralazine 10 mg tablet RxNorm: 249073 Take 1 Tablet(s) Oral QID 03/03/20 021 Inactive cephalexin 500 mg tablet RxNorm: 978873 Take 1 Tablet(s) Oral QID 02/27/20 021 Inactive cephalexin 500 mg tablet RxNorm: 192191 Take 1 Tablet(s) Oral QID 02/27/20 021 Inactive lisinopril 40 mg tablet RxNorm: 573847 Take 1 Tablet(s) Oral QD 02/11/20 023 Inactive Eliquis 5 mg tablet RxNorm: 2552140 Take 1 Tablet(s) Oral BID 01/05/20 022 Inactive Eliquis 5 mg tablet RxNorm: 2930413 Take 2 Tablet(s) Oral QD 01/01/20 21 021 Inactive Lyrica 50 mg capsule RxNorm: 778362 Take 1 Capsule(s) Oral QAM every morning 12/24/19 21 021 Inactive Lyrica 100 mg capsule RxNorm: 906541 Take 1 Capsule(s) Oral QHS every night at bedtime 12/24/19 021 Inactive clotrimazole 1 % topical cream RxNorm: 153032 Apply to right foot and toes Topical BID 12/04/19 21 023 Inactive metoprolol succinate ER 200 mg tablet,extended release 24 hr RxNorm: 280242 Take 1 Tablet(s) Oral QD 12/04/19 21 023 Inactive ciprofloxacin 500 mg tablet RxNorm: 980606 Take 1 Tablet(s) Oral QD 11/30/19 021 Inactive DX ofloxacin otic drops Accu-Chek Guide test strips RxNorm: USE 1 TO CHECK GLUCOSE 4 TIMES DAILY AND NEEDED 11/15/19 21 023 Inactive Blood Glucose Test strips RxNorm: Use 1 Test Strip QID at PRN 11/05/19 023 Inactive E11.42 lisinopril 30 mg tablet RxNorm: 402433 Take 1 Tablet(s) Oral QD 10/30/19 021 Inactive lisinopril 20 mg tablet RxNorm: 702322 Take 1 Tablet(s) Oral QD 10/23/19 021 Inactive lisinopril 20 mg tablet RxNorm: 784599 Take 1 Tablet(s) Oral QD 10/23/19 021 Inactive lisinopril 10 mg tablet RxNorm: 713028 Take 1 Tablet(s) Oral QD 10/02/19 021 Inactive icosapent ethyl 1 gram capsule RxNorm: 2156724 Take 2 Capsule(s) (2 gm) Oral BID with meals 09/12/19 022 Inactive Okay to dispense one 2gm tab if you have that available. icosapent ethyl 1 gram capsule RxNorm: 6450567 Take 2 Capsule(s) Oral BID 09/12/19 021 Inactive Okay to dispense one 2gm tab if you have that available. amlodipine 10 mg tablet RxNorm: 976232 Take 1 Tablet(s) Oral QD 09/04/19 022 Inactive aspirin 81 mg tablet,delayed release RxNorm: 585717 Take 1 Tablet(s) Oral QD 09/04/19 021 Inactive Levemir FlexTouch U-100 Insulin 100 unit/mL (3 mL) subcutaneous pen RxNorm: 041159 Inject 150 Unit(s) Subcutaneous BID 09/04/19 21 022 Inactive venlafaxine ER 150 mg tablet,extended release 24 hr RxNorm: 420297 Take 1 Tablet(s) Oral QD 09/04/19 21 021 Inactive clotrimazole-betame thasone 1 %-0.05 % topical cream RxNorm: 458324 Apply to rash on red area on left abdomen/chest Topical BID 08/10/19 21 Inactive amlodipine 5 mg tablet RxNorm: 681472 Take 1 Tablet(s) Oral QD 07/31/19 Inactive cephalexin 500 mg tablet RxNorm: 796843 Take 1 Tablet(s) Oral BID BID - Twice Daily 07/31/19 Inactive Start 08/01/20 pantoprazole 40 mg tablet,delayed release RxNorm: 579434 Take 1 Tablet(s) Oral QAM every morning 07/08/19 Inactive senna 8.6 mg tablet RxNorm: 432258 Take 1 Tablet(s) Oral QD 07/08/19 Inactive pravastatin 80 mg tablet RxNorm: 915475 Take 1 Tablet(s) Oral QHS every night at bedtime 07/08/19 Inactive carbamazepine 200 mg tablet RxNorm: 413518 Take 1 Tablet(s) Oral BID 07/08/19 022 Inactive clopidogrel 75 mg tablet RxNorm: 297214 Take 1 Tablet(s) Oral QD 07/08/19 Inactive Blood Glucose Test strips RxNorm: Use 1 Test Strip QID at PRN 07/08/19 Inactive E11.42 Novolog Flexpen U-100 Insulin aspart 100 unit/mL (3 mL) subcutaneous RxNorm: 3567820 Administer per sliding scale Milliliter(s) Subcutaneous TID 151-200: 10 u; 201-250: 20 u; 251-300: 30 u; 301-350: 40 u; 351-400: 50 u. 07/08/19 21 022 Inactive lisinopril 5 mg tablet RxNorm: 285145 Take 1 Tablet(s) Oral QD 07/08/19 Inactive Novolog Flexpen U-100 Insulin aspart 100 unit/mL (3 mL) subcutaneous RxNorm: 8606876 Inject 85 Unit(s) Subcutaneous TID 07/08/19 022 Inactive clotrimazole 1 % topical cream RxNorm: 025056 Apply to bilateral groin areas Topical BID 07/08/19 022 Inactive metoprolol succinate ER 200 mg tablet,extended release 24 hr RxNorm: 449861 Take 1 Tablet(s) Oral QD 07/08/19 21 021 Inactive Vitamin D3 25 mcg (1,000 unit) tablet RxNorm: 165696 Take 1 Tablet(s) Oral QD 07/08/19 021 Inactive isosorbide dinitrate 30 mg tablet RxNorm: 166225 Take 1 Tablet(s) Oral QD 07/08/19 021 Inactive Levemir FlexTouch U-100 Insulin 100 unit/mL (3 mL) subcutaneous pen RxNorm: 824665 Inject 140 Unit(s) Subcutaneous BID 07/08/19 021 Inactive torsemide 20 mg tablet RxNorm: 011348 Take 1 Tablet(s) Oral QD 07/08/19 023 Inactive venlafaxine 75 mg tablet RxNorm: 200075 Take 1 Tablet(s) Oral QD 07/08/19 021 Inactive acetaminophen 500 mg tablet RxNorm: 835545 Take 1 Tablet(s) Oral TID as needed for headache 06/18/19 21 021 Inactive acetaminophen 500 mg tablet RxNorm: 164830 Take 1 Tablet(s) Oral TID as needed for headache 06/18/19 021 Inactive Lyrica 100 mg capsule RxNorm: 264492 Take 1 Capsule(s) Oral QHS every night at bedtime 06/11/19 021 Inactive Lyrica 50 mg capsule RxNorm: 418832 Take 1 Capsule(s) Oral QAM every morning 06/10/19 21 021 Inactive hydrocortisone 2.5 % topical cream RxNorm: 922216 Apply to bilateral groin creases Topical BID 05/15/20 20 021 Inactive clotrimazole 1 % topical cream RxNorm: 962677 Apply to bilateral groin areas Topical BID 05/15/20 20 021 Inactive Lyrica 50 mg capsule RxNorm: 170610 Take 1 Capsule(s) Oral QAM every morning 05/14/20 20 Inactive Lyrica 100 mg capsule RxNorm: 582092 Take 1 Capsule(s) Oral QHS every night [...] Inactive Nystop 100,000 unit/gram topical powder RxNorm: 243562 Apply to abd folds, under breasts and L side of groin Topical BID x 14 days, then BID PRN 04/08/20 20 Inactive dx: yeast dermatitis Lyrica 100 mg capsule RxNorm: 082949 Take 1 Capsule(s) Oral QHS every night at bedtime 03/13/20 20 Inactive Lyrica 50 mg capsule RxNorm: 692132 Take 1 Capsule(s) Oral QAM every morning 03/13/20 20 Inactive ketoconazole 2 % shampoo RxNorm: 234477 Apply Topical two times a week with showers 03/11/20 20 Inactive cholecalciferol (vitamin D3) 50 mcg (2,000 unit) tablet RxNorm: 146279 Take 1 Tablet(s) Oral QD 03/11/20 20 Inactive Zetia 10 mg tablet RxNorm: 942045 Take 1 Tablet(s) Oral QD 03/07/20 20 021 Inactive Zetia 10 mg tablet RxNorm: 129329 Take 1 Tablet(s) Oral QD 03/07/20 20 Inactive Lyrica 50 mg capsule RxNorm: 317668 Take 1 Capsule(s) Oral QAM every morning 02/15/20 20 Inactive Lyrica 100 mg capsule RxNorm: 441306 Take 1 Capsule(s) Oral QHS every night at bedtime 02/15/20 20 Inactive Lyrica 100 mg capsule RxNorm: 308571 Take 1 Capsule(s) Oral QHS every night at bedtime 02/15/20 20 Inactive Lyrica 50 mg capsule RxNorm: 628055 Take 1 Capsule(s) Oral QAM every morning 02/15/20 Inactive venlafaxine ER 75 mg capsule,extended release 24 hr RxNorm: 872049 Take 3 Capsule(s) Oral QD 06/12/2021 Activepolyethylene glycol 3350 17 gram/dose oral powderRxNorm: 591506Kuud 17=1 capful Gram(s) Oral BID as needed mix with 4-8oz of nncgwj4506/12/2021ctive metoprolol succinate ER 200 mg tablet,extended release 24 hrRxNorm: 864879Rqzx 1 Tablet(s) Oral QD08/11/2022ctiveloperamide 2 mg capsuleRxNorm: 976680Ltgd 1 Capsule(s) Oral QID as pugocc7506/12/2021ctivehydralazine 50 mg tabletRxNorm: 742705Fyve 1 Tablet(s) Oral QID08/11/2022ctiveicosapent ethyl 1 gram capsule RxNorm: 9055274Plkk 2 Capsule(s) (2 gm) Oral BID with meals10/06// InactiveOkay to dispense one 2gm tab if you have that available.Levemir FlexTouch U-100 Insulin 100 unit/mL (3 mL) subcutaneous penRxNorm: 426738Uoaqoa 80 Unit(s) Subcutaneous BID/InactiveNovolog Flexpen U-100 Insulin aspart 100 unit/mL (3 mL) subcutaneousRxNorm: 7029599Hrkzzz 30 Unit(s) Subcutaneous TID with meals/Inactive Medication [...] Status Date Patient Education: Patient Medication Summary Txzustnfs20/25/2023atient Education: Influenza EjmvbntUbxthppsb55/25/2023 Appointment: Tapan Shirley WPtel: [address] [place], [place] [phone] [facility]10/26/2022Referral: [facility] WPtel: [address], [address] [id number] USReferralRecords Fkocosrx60/08/2023ppointment: Tapan Shirley WPtel: [address] [place], [place] [phone] [facility]/08/11/2022ppointment: Tapan Shirley WPtel: [address] [place], [place] [phone] [place]/07/14/2022ppointment: Tapan Shirley WPtel: [address] [place], [place] [phone] [place]/U02Referral: [facility] WPtel: [address] [id number] PZHoenmbkhQkoxxrwut81/12/2022Referral: General CardiologyReferralCompleted 1Referral: General PsychologistReferralClosed Instructions Comment [...] Sister Jyotsna involved in his care cell# [phone] Guardian: Don (tapan met in person 09/01/21), now has Lexii (same group as don)Lab Schedule: * 10/06/2022
--- OUTSIDE RECORDS SUMMARY | 2022-12-19 20:15 | XMS_ITS | CCD ---
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 Secondary Set Up Man Name Role Phone Tapan Shirley PA-C Primary Care Provider Unavailabl e Tapan Shirley PA-C Chronic Care Management Unavaila ble Summary Purpose DataExchange Insurance Providers Payer name Policy type / Coverage type Covered constitution party ID Effective Begin Date Effective End Date Medicare [place] Medicare Part B [id number] Unknown Unknown Medicaid [place] Medicare Part B [id number] Unknown Unknown Family history Sister Brittany Suggs [...] Unknown Intermediate 09/03/[address]: 7578172 Non-Smoker / No History of Smoking 09/02/[address]: 518850618 No Alcohol Consum ption 09/02/2020 Allergies, Adverse Reactions, Alerts Substance Reaction Codes Entered Date Inactivated Date Status LISINOPRIL RxNorm: 1978906No Inactive DateActiveMetformin SFiVanromq45/28/2020No Inactive DateActive Problems Condition Codes Effective Dates Condition St atus Coronary artery disease invo lving nez perce coronary artery of ne[place] heart, angina presence unspecified ICD-10: I25.10 ICD-9: 414.0107/ctiveHypertensive heart disease without heart failure ICD-10: I11.9 ICD-9: 402.9007/ctiveHypokalemiaICD-10: E87.6 ICD-9: 276.807/ctiveTinea pedis of both feetICD-10: B35.3 ICD-9: 110.407/ctiveHyperlipidemia associated with type 2 diabetes mellitusICD-10: E11.69 ICD-9: 250.8006/ctiveOnychogryposisICD-10: L60.2 ICD-9: 703.806/ctiveParaparesis of both lower limbsICD-10: G82.20 ICD-9: 344.106/ctiveStage [...] 296.3505/ctiveAmputated toe of right footICD-10: S98.131A ICD-9: 895.003/ctivePre-op evaluationICD-10: Z01.818 ICD-9: V72.8403/ctiveSecondary hypertensionICD-10: I15.9 ICD-9: 405.9903/ctiveCandidiasis, intertrigoICD-10: B37.2 ICD-9: 112.302/ctiveMajor depression, recurrentICD-10: F33.9 ICD-9: 296.3002/ctiveVitamin D deficiencyICD-10: E55.9 ICD-9: 268.912/ctiveShortness of breathICD-10: R06.02 ICD-9: 786.0511/ctiveSeizure disorderICD-10: G40.909 ICD-9: 345.9011/2ActiveCellulitisICD-10: L03.90 ICD-9: 682.910/ctiveReducible umbilical herniaICD-10: K42.9 ICD-9: 553.110/ctiveBMI 60.0-69.9, adultICD-10: Z68.44 ICD-9: V85.4410/ctiveInappropriate sexual behaviorICD-10: Z72.89 ICD-9: 312.8910/ctiveHx of deep venous thrombosisICD-10: Z86.718 ICD-9: V12.5109/ctiveHypercoagulable stateICD-10: D68.59 ICD-9: 289.8109/ctivePVD (peripheral vascular disease)ICD-10: I73.9 ICD-9: 443.909/2ActiveDepressionICD-10: F32.9 ICD-9: 51959/2ResolvedDVT (deep venous thrombosis)ICD-10: I82.409 ICD-9: 453.4009/2ResolvedEncounter for immunizationICD-10: Z23 ICD-9: V03.8909/2ResolvedLong term (current) use of insulinICD-10: Z79.4 2ResolvedMuscular painICD-10: M79.10 ICD-9: 729.109/2ResolvedDandruff in adultICD-10: L21.0 ICD-9: 690.1808/ctiveHypertension associated with diabetesICD-10: E11.59 ICD-9: 250.8008/2ResolvedHistory of anemia due to CKDICD-10: N18.9 ICD-9: 585.907/2ActiveStage 2 chronic kidney diseaseICD-10: N18.2 ICD-9: 585.207/2ActiveGout due to renal impairmentICD-10: M10.30 ICD-9: 274.1006/ctivePreventative health careICD-10: Z00.00 ICD-9: V70.006/ctiveLearning disabilityICD-10: F81.9 ICD-9: 315.212/ctiveSkin tagICD-10: L91.8 ICD-9: 701.911/ctiveCallus of heelICD-10: L84 ICD-9: 42892/ctiveImpacted cerumen, left earICD-10: H61.22 ICD-9: 380.408/ctiveContact with and (suspected) exposure to covid-19 ICD-10: Z20.822 ICD-9: V01.7908/esolvedOther infective acute otitis externa of left ear ICD-10: H60.392 ICD-9: 380.1008/esolvedScrotal skin lesionICD-10: N50.9 ICD-9: 608.908/esolvedAnemia due to stage 3b chronic kidney diseaseICD- 10: N18.32 ICD-9: 285.2105esolvedChronic kidney disease, stage 3 unspecifiedICD- 10: N18.3004/esolvedContact with and (suspected) exposure to other viral communicable diseasesICD-10: Z20.828 ICD-9: V01.7902esolvedHyperhidrosis of palmsICD-10: L74.512 ICD-9: 705.5350KyxzpvErmhjffpVcymbvw45/28/2020ActiveDiabetes mellitus Type 4Zvwtjda95/28/2020ActiveAnemia in chronic kidney diseaseICD-10: D63.1 02/12/2020ResolvedHyperlipidemia, unspecifiedICD-10: E78.Resolved Medications Medication Codes Instructions Start Date Stop Date Status Fill Instructions acetaminophen 500 mg tablet RxNorm: 462043 1 TABLET ORALLY 3 TIMES DAILY (MAX APAP:4GM/24HR) 12/15/19 23 024 Active potassium chloride ER 20 mEq tablet,extended release RxNorm: 316459 Take 1 Tablet(s) Oral BID 12/09/19 023 Active d/c 20mEq once daily (sent from hospital) clotrimazole 1 % topical cream RxNorm: 544030 apply 1g topically to top of feet and in between toes BID 12/09/19 23 023 Active nystatin 100,000 unit/gram topical powder RxNorm: 442787 APPLY TO AFFECTED AREAS TOPICALLY 2 TIMES DAILY 11/21/19 024 Active Nystop 100,000 unit/gram topical powder RxNorm: 129311 Apply to abd folds, under breasts and L side of groin Topical BID x 14 days, then BID PRN 11/20/19 023 Inactive dx: yeast dermatitis [place] Ultra Strength 4 %-30 %-10 % topical cream RxNorm: 089566 Apply 1 Gram(s) Topical QID PRN to feet and legs for neuropathic pain 11/11/19 024 Active hydrocortisone 2.5 % topical cream RxNorm: 631910 Apply 1/2 Gram(s) Topical BID as needed 11/10/19 No Stop Date Active clotrimazole 1 % topical cream RxNorm: 835375 Apply 1/2 Gram(s) Topical BID Apply to affected areas of groin, periarea, and abdominal topically 2 times daily 11/10/19 023 Inactive Levemir FlexPen 100 unit/mL (3 mL) solution subcutaneous insulin pen RxNorm: 593692 Inject 30 Unit(s) Subcutaneous BID 10/07/19 024 Active Humulin R U-500 (Concentrated) Insulin 500 unit/mL subcutaneous soln RxNorm: 961893 Inject 100 Unit(s) Subcutaneous TID 10/07/19 024 Active Ozempic 0.25 mg or 0.5 mg (2 mg/3 mL) subcutaneous pen injector RxNorm: 9082865 Inject 1/2 Milligram(s) Subcutaneous QW once a week 10/07/19 024 Active aripiprazole 15 mg tablet RxNorm: 108090 1/2 TAB (7.5MG) ORALLY DAILY (DX:MAJOR DEPRESSIVE DISORDER) 09/23/19 23 023 Active Accu-Chek Guide test strips RxNorm: Use 1 Test Strip QID 09/15/19 23 024 Active ok to substitute with any covered alternative test strip Lancets,Thin 28 gauge RxNorm: Use 1 as directed QID 09/15/19 23 024 Active torsemide 20 mg tablet RxNorm: 891825 Take 1 Tablet(s) Oral BID 09/09/19 23 024 Active d/c once daily dosing carvedilol 25 mg tablet RxNorm: 138139 Take 1 Tablet(s) Oral QD 08/25/19 23 024 Active pregabalin 150 mg capsule RxNorm: 217501 1 Capsule(s) Oral HS at bed time 08/18/19 23 023 Active pregabalin 100 mg capsule RxNorm: 492639 1 Capsule(s) Oral QAM every morning 08/18/19 023 Active carvedilol 25 mg tablet RxNorm: 963181 1 Tablet(s) Oral QD 07/28/19 23 023 Inactive lisinopril 20 mg tablet RxNorm: 336934 Give 1 Tablet(s) Oral QD 07/28/19 23 023 Inactive Lyrica 150 mg capsule RxNorm: 073627 Take 1 Capsule(s) Oral QHS every night at bedtime 07/19/19 023 Inactive d/c 100mg dose Diflucan 150 mg tablet RxNorm: 090432 Take 1 Tablet(s) Oral QD repeat on day 3 and 6 07/19/19 23 023 Inactive pregabalin 100 mg capsule RxNorm: 781082 Take 1 Capsule(s) Oral QAM every morning 07/19/19 23 023 Inactive gatifloxacin 0.5 % eye drops RxNorm: 282780 Instill 1 Drop(s) as directed TID Instill 1 drop in to affected eye(s) starting 1 day prior to surgery and continue until gone (do not exceed 4 weeks). 07/13/19 23 023 Inactive carvedilol 25 mg tablet RxNorm: 627261 2 Tablet(s) Oral BID 07/13/19 23 023 Inactive Humulin R Regular U-100 Insulin 100 unit/mL injection solution RxNorm: 853365 85 Unit(s) Injection TID 07/13/19 23 023 Inactive ketorolac 0.5 % eye drops RxNorm: 603821 Instill 1 Drop(s) as directed QID Instill 1 drop into affected eye(s) 4 times daily starting 1 day prior to surgery and continue until gone (do not exceed 4 weeks). 07/13/19 23 023 Inactive Diflucan 150 mg tablet RxNorm: 341230 Take 1 Tablet(s) Oral QD repeat on day 3 and 6 06/30/19 023 Inactive Accu-Chek Guide test strips RxNorm: Use 1 Test Strip QID Use 1 test strip to monitor blood glucose 4 times daily and as needed. Dx:E11.42. 06/23/19 23 023 Inactive ok to substitute with any covered alternative test strip dextromethorphan-gu aifenesin 10 mg-100 mg/5 mL oral liquid RxNorm: 900278 Take 10 Milliliter(s) Oral every 4 hours as needed for cough 06/19/19 023 Inactive dextromethorphan-gu aifenesin 10 mg-100 mg/5 mL oral liquid RxNorm: 607831 Take 10 Milliliter(s) Oral every 4 hours as needed for cough 06/19/19 23 023 Inactive Lyrica 150 mg capsule RxNorm: 951900 Take 1 Capsule(s) Oral QHS every night at bedtime 06/18/19 23 023 Inactive d/c 100mg dose aripiprazole 15 mg tablet RxNorm: 807079 1/2 TAB (7.5MG) ORALLY DAILY (DX:MAJOR DEPRESSIVE DISORDER) 06/05/19 23 023 Inactive pregabalin 100 mg capsule RxNorm: 482610 1 Capsule(s) Oral QAM every morning 06/02/19 23 023 Inactive Banophen 50 mg capsule RxNorm: 6809465 Take 1 Capsule(s) Oral Q6H every 6 hours as needed 05/19/19 No Stop Date Active Novolog Flexpen U-100 Insulin aspart 100 unit/mL (3 mL) subcutaneous RxNorm: 8579017 Inject 10 Unit(s) Subcutaneous QHS every night at bedtime with nighttime snack 04/08/20 Inactive Novolog Flexpen U-100 Insulin aspart 100 unit/mL (3 mL) subcutaneous RxNorm: 7178640 Inject 42 Unit(s) Subcutaneous TID in addition to sliding scale 04/08/20 Inactive d/c 36u albuterol sulfate HFA 90 mcg/actuation aerosol inhaler RxNorm: 4370097 Take 2 Puff(s) Inhalation Q4H every four hours as needed as needed for SOB, cough, or wheezing 04/07/20 030 Active Banophen 50 mg capsule RxNorm: 1354364 Take 1 Capsule(s) Oral Q6H every 6 hours as needed 04/06/20 023 Inactive diphenhydramine 50 mg tablet RxNorm: 3812367 Take 1 Tablet(s) Oral Q6H every 6 hours as needed 04/06/20 022 Inactive diphenhydramine 50 mg tablet RxNorm: 1225782 1 Tablet(s) Oral Q6H every 6 hours as needed 04/06/20 022 Inactive Abilify 15 mg tablet RxNorm: 326872 1/2 Tablet(s) Oral QD 03/10/20 023 Inactive Shingrix (PF) 50 mcg/0.5 mL intramuscular suspension, kit RxNorm: 4533335 Administer 1/2 Milliliter(s) Intramuscular QD one time shingrix step 2 ( step 1 given 11/04/21) WITH needle - Nursing please administer upon arrival and once administered post a bridge message with date of administration, game designer, expiration date, and lot# so we can update [facility] 02/18/20 22 022 Inactive dispense with needle Shingrix (PF) 50 mcg/0.5 mL intramuscular suspension, kit RxNorm: 2963099 Administer 1/2 Milliliter(s) Intramuscular QD one time shingrix step 2 ( step 1 given 11/04/21) WITH needle - Nursing please administer upon arrival and once administered post a bridge message with date of administration, game designer, expiration date, and lot# so we can update [facility] 02/18/20 22 Inactive dispense with needle polyethylene glycol 3350 17 gram/dose oral powder RxNorm: 992282 Take 17=1 capful Gram(s) Oral QD mix with 4-8oz of liquid 01/08/20 22 023 Active take this in addition to BID prn order Lyrica 100 mg capsule RxNorm: 739704 Take 1 Capsule(s) Oral QAM every morning 01/08/20 22 022 Inactive d/c 50mg dose acetaminophen 500 mg tablet RxNorm: 402526 Take 1 Tablet(s) Oral TID 01/08/20 22 022 Inactive d/c PRN order Lyrica 150 mg capsule RxNorm: 890227 Take 1 Capsule(s) Oral QHS every night at bedtime 01/08/20 22 023 Inactive d/c 100mg dose Abilify 5 mg tablet RxNorm: 296469 Take 1 Tablet(s) Oral QD take 1 tab po QD #30 refill 5 dx: MDD 12/12/19 22 022 Inactive Abilify 5 mg tablet RxNorm: 583183 Take 1 Tablet(s) Oral QD take 1 tab po QD #30 refill 5 dx: MDD 12/12/19 22 022 Inactive Novolog Flexpen U-100 Insulin aspart 100 unit/mL (3 mL) subcutaneous RxNorm: 8889964 Inject 42 Unit(s) Subcutaneous TID in addition to sliding scale 12/10/19 22 022 Inactive d/c 36u chlorthalidone 25 mg tablet RxNorm: 034016 Take 1 Tablet(s) Oral QAM every morning 12/10/19 22 023 Inactive pregabalin 50 mg capsule RxNorm: 402689 Take 1 Capsule(s) Oral QAM every morning 11/12/19 22 022 Inactive tetanus-diphtheria toxoids-Td 2 Lf unit-2 Lf unit/0.5 mL IM suspension RxNorm: 139 Take 0.5 Miscellaneous Intramuscular 11/12/19 22 022 Inactive need tdap - nursing to administer upon arrival pregabalin 50 mg capsule RxNorm: 868660 Take 1 Capsule(s) Oral QAM every morning 10/16/19 22 022 Inactive pregabalin 50 mg capsule RxNorm: 327889 Take 1 Capsule(s) Oral QAM every morning 10/16/19 22 022 Inactive pregabalin 50 mg capsule RxNorm: 564432 1 Capsule(s) Oral QAM every morning 10/15/19 22 022 Inactive Shingrix (PF) 50 mcg/0.5 mL intramuscular suspension, kit RxNorm: 5315661 Administer 1/2 Milliliter(s) Intramuscular one time Nursing please administer upon arrival and once administered post a bridge message with date of administration, game designer, expiration date, and lot# so we can update [facility]. 10/09/19 22 022 Inactive shingrix step 1 Shingrix (PF) 50 mcg/0.5 mL intramuscular suspension, kit RxNorm: 8162331 Administer 1/2 Milliliter(s) Intramuscular one time Nursing please administer upon arrival and once administered post a bridge message with date of administration, game designer, expiration date, and lot# so we can update [facility]. 10/09/19 22 022 Inactive shingrix step 1 cholecalciferol (vitamin D3) 1,250 mcg (50,000 unit) capsule RxNorm: 067193 Take 1 Capsule(s) Oral QW once a [...] aspart 100 unit/mL (3 mL) subcutaneous RxNorm: 5928490 Inject 10 Unit(s) Subcutaneous QHS every night at bedtime with nighttime snack 10/08/19 22 Inactive Shingrix (PF) 50 mcg/0.5 mL intramuscular suspension, kit RxNorm: 8003913 ADMINISTER 2-DOSE SERIES PER CDC GUIDELINES 10/08/19 22 Active Shingrix (PF) 50 mcg/0.5 mL intramuscular suspension, kit RxNorm: 8900791 ADMINISTER 2-DOSE SERIES PER CDC GUIDELINES 10/08/19 22 Inactive Novolog Flexpen U-100 Insulin aspart 100 unit/mL (3 mL) subcutaneous RxNorm: 8748824 Inject 36 Unit(s) Subcutaneous TID in addition to sliding scale 10/08/19 Inactive Novofine Autocover 30 gauge x 1/3 needle RxNorm: Use 1 Miscellaneous UD as directed Use 1 needle as directed to administer insulin 5 times a day Dx:E11.42. 10/03/19 Inactive ok to substitute with any covered alternative pen needle benzoyl peroxide 10 % topical cleanser RxNorm: 137106 Apply 1 Application Topical QD apply to face, wash rinse and dry once daily (may change to QOD if drying) 08/19/19 022 Inactive (%covered by insurance) #60ml refill 11 dx: acne benzoyl peroxide 10 % topical cleanser RxNorm: 285215 Apply 1 Application Topical QD apply to face, wash rinse and dry once daily (may change to QOD if drying) 08/19/19 22 022 Inactive (%covered by insurance) #60ml refill 11 dx: acne benzoyl peroxide 10 % topical cleanser RxNorm: 397659 Apply 1 Application Topical QD apply to face, wash rinse and dry once daily (may change to QOD if drying) 08/19/19 22 022 Inactive (%covered by insurance) #60ml refill 11 dx: acne Lyrica 50 mg capsule RxNorm: 559253 Take 1 Capsule(s) Oral QAM every morning Take 1 capsule by mouth once daily 08/19/19 22 022 Inactive benzoyl peroxide 10 % topical cleanser RxNorm: 934723 Apply 1 Application Topical QD apply to face, wash rinse and dry once daily (may change to QOD if drying) 08/19/19 22 022 Inactive (%covered by insurance) #60ml refill 11 dx: acne Lyrica 100 mg capsule RxNorm: 931712 Take 1 Capsule(s) Oral QHS every night at bedtime Take 1 capsule by mouth once daily at bedtime 08/19/19 22 022 Inactive Lyrica 100 mg capsule RxNorm: 326287 Take 1 Capsule(s) Oral QHS every night at bedtime Take 1 capsule by mouth once daily at bedtime 08/16/19 22 022 Inactive Lyrica 50 mg capsule RxNorm: 678722 Take 1 Capsule(s) Oral QAM every morning Take 1 capsule by mouth once daily 08/16/19 22 022 Inactive Levemir FlexTouch U-100 Insulin 100 unit/mL (3 mL) subcutaneous pen RxNorm: 706816 Inject 86 Unit(s) Subcutaneous BID 08/05/19 22 022 Inactive d/c 83units BID Lyrica 100 mg capsule RxNorm: 461074 Take 1 Capsule(s) Oral QHS every night at bedtime Take 1 capsule by mouth once daily at bedtime 07/14/19 22 022 Inactive Lyrica 50 mg capsule RxNorm: 518019 Take 1 Capsule(s) Oral QAM every morning Take 1 capsule by mouth once daily 07/14/19 22 022 Inactive Levemir FlexTouch U-100 Insulin 100 unit/mL (3 mL) subcutaneous pen RxNorm: 977719 Inject 83 Unit(s) Subcutaneous BID 07/08/19 22 [...] 30 mg tablet,extended release 24 hr RxNorm: 486669 Take 1 Tablet(s) Oral QD 05/05/20 21 No Stop Date Active hydralazine 50 mg tablet RxNorm: 042944 Take 1 Tablet(s) Oral QID 05/05/20 21 022 Inactive venlafaxine ER 225 mg tablet,extended release 24 hr RxNorm: 412831 Take 1 Tablet(s) Oral QD 05/05/20 21 021 Inactive venlafaxine ER 225 mg tablet,extended release 24 hr RxNorm: 351747 Take 1 Tablet(s) Oral QD 05/05/20 21 022 Inactive hydralazine 50 mg tablet RxNorm: 833415 Take 1 Tablet(s) Oral QID 05/05/20 21 021 Inactive aspirin 81 mg tablet,delayed release RxNorm: 137181 Take 1 Tablet(s) Oral QD 03/31/20 21 022 Inactive Zetia 10 mg tablet RxNorm: 264154 Take 1 Tablet(s) Oral QD 03/31/20 022 Inactive Vitamin D2 1,250 mcg (50,000 unit) capsule RxNorm: 1096081 Take 1 Capsule(s) Oral QW once a week x 12 weeks 03/31/20 022 Inactive Vitamin D2 1,250 mcg (50,000 unit) capsule RxNorm: 0275799 Take 1 Capsule(s) Oral QW once a week 03/31/20 021 Inactive Zetia 10 mg tablet RxNorm: 408319 Take 1 Tablet(s) Oral QD 03/31/20 Inactive hydralazine 25 mg tablet RxNorm: 626597 Take 1 Tablet(s) Oral QID 03/31/20 021 Inactive hydralazine 25 mg tablet RxNorm: 337357 Take 1 Tablet(s) Oral QID 03/31/20 021 Inactive hydralazine 10 mg tablet RxNorm: 872857 Take 1 Tablet(s) Oral QID 03/03/20 021 Inactive cephalexin 500 mg tablet RxNorm: 241384 Take 1 Tablet(s) Oral QID 02/27/20 021 Inactive cephalexin 500 mg tablet RxNorm: 844978 Take 1 Tablet(s) Oral QID 02/27/20 021 Inactive lisinopril 40 mg tablet RxNorm: 255413 Take 1 Tablet(s) Oral QD 02/11/20 023 Inactive Eliquis 5 mg tablet RxNorm: 5324995 Take 1 Tablet(s) Oral BID 01/05/20 022 Inactive Eliquis 5 mg tablet RxNorm: 9887079 Take 2 Tablet(s) Oral QD 01/01/20 21 021 Inactive Lyrica 50 mg capsule RxNorm: 966200 Take 1 Capsule(s) Oral QAM every morning 12/24/19 21 021 Inactive Lyrica 100 mg capsule RxNorm: 958856 Take 1 Capsule(s) Oral QHS every night at bedtime 12/24/19 21 021 Inactive clotrimazole 1 % topical cream RxNorm: 160312 Apply to right foot and toes Topical BID 12/04/19 21 023 Inactive metoprolol succinate ER 200 mg tablet,extended release 24 hr RxNorm: 103496 Take 1 Tablet(s) Oral QD 12/04/19 21 023 Inactive ciprofloxacin 500 mg tablet RxNorm: 267279 Take 1 Tablet(s) Oral QD 11/30/19 21 021 Inactive DX ofloxacin otic drops Accu-Chek Guide test strips RxNorm: USE 1 TO CHECK GLUCOSE 4 TIMES DAILY AND NEEDED 11/15/19 21 023 Inactive Blood Glucose Test strips RxNorm: Use 1 Test Strip QID at PRN 11/05/19 21 023 Inactive E11.42 lisinopril 30 mg tablet RxNorm: 357238 Take 1 Tablet(s) Oral QD 10/30/19 021 Inactive lisinopril 20 mg tablet RxNorm: 346225 Take 1 Tablet(s) Oral QD 10/23/19 021 Inactive lisinopril 20 mg tablet RxNorm: 441864 Take 1 Tablet(s) Oral QD 10/23/19 021 Inactive lisinopril 10 mg tablet RxNorm: 494826 Take 1 Tablet(s) Oral QD 10/02/19 021 Inactive icosapent ethyl 1 gram capsule RxNorm: 0860675 Take 2 Capsule(s) (2 gm) Oral BID with meals 09/12/19 21 022 Inactive Okay to dispense one 2gm tab if you have that available. icosapent ethyl 1 gram capsule RxNorm: 9044295 Take 2 Capsule(s) Oral BID 09/12/19 21 021 Inactive Okay to dispense one 2gm tab if you have that available. amlodipine 10 mg tablet RxNorm: 068045 Take 1 Tablet(s) Oral QD 09/04/19 21 022 Inactive aspirin 81 mg tablet,delayed release RxNorm: 194437 Take 1 Tablet(s) Oral QD 04/20 Inactive Levemir FlexTouch U-100 Insulin 100 unit/mL (3 mL) subcutaneous pen RxNorm: 682733 Inject 150 Unit(s) Subcutaneous BID 09/04/19 Inactive venlafaxine ER 150 mg tablet,extended release 24 hr RxNorm: 263220 Take 1 Tablet(s) Oral QD 09/04/19 Inactive clotrimazole-betame thasone 1 %-0.05 % topical cream RxNorm: 412928 Apply to rash on red area on left abdomen/chest Topical BID 08/10/19 21 Inactive amlodipine 5 mg tablet RxNorm: 517186 Take 1 Tablet(s) Oral QD 07/31/19 Inactive cephalexin 500 mg tablet RxNorm: 214300 Take 1 Tablet(s) Oral BID BID - Twice Daily 07/31/19 Inactive Start 08/01/20 pantoprazole 40 mg tablet,delayed release RxNorm: 307210 Take 1 Tablet(s) Oral QAM every morning 07/08/19 022 Inactive senna 8.6 mg tablet RxNorm: 444347 Take 1 Tablet(s) Oral QD 07/08/19 022 Inactive pravastatin 80 mg tablet RxNorm: 403857 Take 1 Tablet(s) Oral QHS every night at bedtime 07/08/19 Inactive carbamazepine 200 mg tablet RxNorm: 164206 Take 1 Tablet(s) Oral BID 07/08/19 022 Inactive clopidogrel 75 mg tablet RxNorm: 647388 Take 1 Tablet(s) Oral QD 07/08/19 021 Inactive Blood Glucose Test strips RxNorm: Use 1 Test Strip QID at PRN 07/08/19 21 Inactive E11.42 Novolog Flexpen U-100 Insulin aspart 100 unit/mL (3 mL) subcutaneous RxNorm: 0631518 Administer per sliding scale Milliliter(s) Subcutaneous TID 151-200: 10 u; 201-250: 20 u; 251-300: 30 u; 301-350: 40 u; 351-400: 50 u. 07/08/19 21 022 Inactive lisinopril 5 mg tablet RxNorm: 416415 Take 1 Tablet(s) Oral QD 07/08/19 021 Inactive Novolog Flexpen U-100 Insulin aspart 100 unit/mL (3 mL) subcutaneous RxNorm: 5847889 Inject 85 Unit(s) Subcutaneous TID 07/08/19 21 022 Inactive clotrimazole 1 % topical cream RxNorm: 317037 Apply to bilateral groin areas Topical BID 07/08/19 21 022 Inactive metoprolol succinate ER 200 mg tablet,extended release 24 hr RxNorm: 071219 Take 1 Tablet(s) Oral QD 07/08/19 21 021 Inactive Vitamin D3 25 mcg (1,000 unit) tablet RxNorm: 997575 Take 1 Tablet(s) Oral QD 07/08/19 021 Inactive isosorbide dinitrate 30 mg tablet RxNorm: 263212 Take 1 Tablet(s) Oral QD 07/08/19 21 021 Inactive Levemir FlexTouch U-100 Insulin 100 unit/mL (3 mL) subcutaneous pen RxNorm: 198756 Inject 140 Unit(s) Subcutaneous BID 07/08/19 021 Inactive torsemide 20 mg tablet RxNorm: 534276 Take 1 Tablet(s) Oral QD 07/08/19 023 Inactive venlafaxine 75 mg tablet RxNorm: 815474 Take 1 Tablet(s) Oral QD 07/08/19 021 Inactive acetaminophen 500 mg tablet RxNorm: 585147 Take 1 Tablet(s) Oral TID as needed for headache 06/18/19 21 021 Inactive acetaminophen 500 mg tablet RxNorm: 788352 Take 1 Tablet(s) Oral TID as needed for headache 06/18/19 21 021 Inactive Lyrica 100 mg capsule RxNorm: 418960 Take 1 Capsule(s) Oral QHS every night at bedtime 06/11/19 21 021 Inactive Lyrica 50 mg capsule RxNorm: 108797 Take 1 Capsule(s) Oral QAM every morning 06/10/19 21 021 Inactive hydrocortisone 2.5 % topical cream RxNorm: 718524 Apply to bilateral groin creases Topical BID 05/15/20 20 021 Inactive clotrimazole 1 % topical cream RxNorm: 810050 Apply to bilateral groin areas Topical BID 05/15/20 20 021 Inactive Lyrica 50 mg capsule RxNorm: 110658 Take 1 Capsule(s) Oral QAM every morning 05/14/20 20 020 Inactive Lyrica 100 mg capsule RxNorm: 255730 Take 1 Capsule(s) Oral QHS every night [...] Inactive Nystop 100,000 unit/gram topical powder RxNorm: 316414 Apply to abd folds, under breasts and L side of groin Topical BID x 14 days, then BID PRN 04/08/20 20 020 Inactive dx: yeast dermatitis Lyrica 100 mg capsule RxNorm: 264992 Take 1 Capsule(s) Oral QHS every night at bedtime 03/13/20 20 020 Inactive Lyrica 50 mg capsule RxNorm: 110632 Take 1 Capsule(s) Oral QAM every morning 03/13/20 20 020 Inactive ketoconazole 2 % shampoo RxNorm: 242104 Apply Topical two times a week with showers 10/26/20 20 10/20/2 021 Inactive cholecalciferol (vitamin D3) 50 mcg (2,000 unit) tablet RxNorm: 916525 Take 1 Tablet(s) Oral QD 03/11/20 20 Inactive Zetia 10 mg tablet RxNorm: 237234 Take 1 Tablet(s) Oral QD 03/07/20 20 Inactive Zetia 10 mg tablet RxNorm: 341227 Take 1 Tablet(s) Oral QD 03/07/20 Inactive Lyrica 50 mg capsule RxNorm: 738324 Take 1 Capsule(s) Oral QAM every morning 02/15/20 Inactive Lyrica 100 mg capsule RxNorm: 477387 Take 1 Capsule(s) Oral QHS every night at bedtime 02/15/20 20 Inactive Lyrica 100 mg capsule RxNorm: 642117 Take 1 Capsule(s) Oral QHS every night at bedtime 02/15/20 Inactive Lyrica 50 mg capsule RxNorm: 348880 Take 1 Capsule(s) Oral QAM every morning 02/15/20 Inactive venlafaxine ER 75 mg capsule,extended release 24 hr RxNorm: 966061 Take 3 Capsule(s) Oral QD 06/12/2021 Activepolyethylene glycol 3350 17 gram/dose oral powderRxNorm: 788013Wjrw 17=1 capful Gram(s) Oral BID as needed mix with 4-8oz of oyaxwm6106/12/2021ctive metoprolol succinate ER 200 mg tablet,extended release 24 hrRxNorm: 509839Iwbu 1 Tablet(s) Oral QD08/11/2022ctiveloperamide 2 mg capsuleRxNorm: 392999Njhn 1 Capsule(s) Oral QID as hzymfs4106/12/2021ctivehydralazine 50 mg tabletRxNorm: 432464Gzbl 1 Tablet(s) Oral QID08/11/2022ctiveicosapent ethyl 1 gram capsule RxNorm: 1372817Qmjb 2 Capsule(s) (2 gm) Oral BID with meals05/ InactiveOkay to dispense one 2gm tab if you have that available.Levemir FlexTouch U-100 Insulin 100 unit/mL (3 mL) subcutaneous penRxNorm: 071494Gzqict 80 Unit(s) Subcutaneous BID07/14//InactiveNovolog Flexpen U-100 Insulin aspart 100 unit/mL (3 mL) subcutaneousRxNorm: 0790398Ceuvts 30 Unit(s) Subcutaneous TID with mealsInactive Medication [...] Date Referral: [facility] WPtel: [address], [address] [id number] USReferralRecords Negmzhgz01/08/2023Referral: [facility] WPtel: [address] [id number] LFGbvhlfzbQugwdugzb68/12/2022Referral: General CardiologyReferralCompleted 1Referral: General PsychologistReferralClosed Instructions Comment Date Leonid is a Male being seen living at [facility]. Initial [facility] visit 01/2020. PMHx including DMII, CAD w/ 5 stents, Depression, Seizure Disorder and CKD stage 3. He moved into [facility] in 12/2019 but after a hospitalization 05/2021 he moved to [facility] to have closer nursing attention. Sister Jyotsna involved in his care cell# [phone] Guardian: Don (tapan met in person 09/01/21), now has Lexii (same group as don)Lab Schedule: * 10/06/2022
--- OUTSIDE RECORDS SUMMARY | 2023-01-28 18:00 | XMS_ITS | CCD ---
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 Name Role Phone Chelo Fonseca PA-C Primary Care Provider Unavaila ble Chelo Fonseca PA-C Chronic Care Management Nicole archer Summary Purpose DataExchange Insurance Providers Payer name Policy type / Coverage type Covered republican ID Effective Begin Date Effective End Date [place] Part B [id number] Unknown Unknown Medicaid [place] Medicare Part B [id number] Unknown Unknown Family history Sister Brittany Suggs Diagnosis Age At Onset No Family Disease Entered N/A Runs in the family Diagnosis Age At Onset No Known Diseases N/A Sister Blanka Mcduffie Diagnosis Age At Onset No Family Disease Entered N/A Social History Social History Element Codes Description Effec tive Dates Marital status Unknown Single 10/07/2021 Living arrangements Unknown Half-Way 09/03/[address]: 9628297 Non-Smoker / No History of Smoking 09/02/[address]: 589463540 No Alcohol Consum ption 09/02/2020 Allergies, Adverse Reactions, Alerts Substance Reaction Codes Entered Date Inactivated Date Status LISINOPRIL RxNorm: 6446085No Inactive DateActiveMetformin IOlIbpvyml39/28/2020No Inactive DateActive Problems Condition Codes Effective Dates Condition St atus Coronary artery disease invo lving [place] coronary artery of [place] heart, angina presence unspecified ICD-10: I25.10 ICD-9: 414.01012/08/2022ctiveHypertensive heart disease without heart failure ICD-10: I11.9 ICD-9: 402.9007ctiveHypokalemiaICD-10: E87.6 ICD-9: 276.807ctiveTinea pedis of both feetICD-10: B35.3 ICD-9: 110.407/ctiveHyperlipidemia [...] E55.9 ICD-9: 268.912/ctiveShortness of breathICD-10: R06.02 ICD-9: 786.0511/2ActiveSeizure disorderICD-10: G40.909 ICD-9: 345.9011/ctiveCellulitisICD-10: L03.90 ICD-9: 682.910/ctiveReducible umbilical herniaICD-10: K42.9 ICD-9: 553.110/ctiveBMI 60.0-69.9, adultICD-10: Z68.44 ICD-9: V85.4410/ctiveInappropriate sexual behaviorICD-10: Z72.89 ICD-9: 312.8910/ctiveHx of deep venous thrombosisICD-10: Z86.718 ICD-9: V12.5109/ctiveHypercoagulable stateICD-10: D68.59 ICD-9: 289.8109ctivePVD (peripheral vascular disease)ICD-10: I73.9 ICD-9: 443.909/ctiveDepressionICD-10: F32.9 ICD-9: 192642ResolvedDVT (deep venous thrombosis)ICD-10: I82.409 ICD-9: 453.4009/2ResolvedEncounter for immunizationICD-10: Z23 ICD-9: V03.89092ResolvedLong term (current) use of insulinICD-10: Z79.4 2ResolvedMuscular painICD-10: M79.10 ICD-9: 729.109/2ResolvedDandruff in adultICD-10: L21.0 ICD-9: 690.1808/ctiveHypertension associated with diabetesICD-10: E11.59 ICD-9: 250.8008/2ResolvedHistory of anemia due to CKDICD-10: N18.9 ICD-9: 585.907ctiveStage 2 chronic kidney diseaseICD-10: N18.2 ICD-9: 585.207/ctiveGout due to renal impairmentICD-10: M10.30 ICD-9: 274.1006/ctivePreventative health careICD-10: Z00.00 ICD-9: V70.006/ctiveLearning disabilityICD-10: F81.9 ICD-9: 315.212/ctiveSkin tagICD-10: L91.8 ICD-9: 701.911/ctiveCallus of heelICD-10: L84 ICD-9: 73364/ctiveImpacted cerumen, left earICD-10: H61.22 ICD-9: 380.408/ctiveContact with and (suspected) exposure to covid-19 ICD-10: Z20.822 ICD-9: V01.7908/esolvedOther infective acute otitis externa of left ear ICD-10: H60.392 ICD-9: 380.1008/esolvedScrotal skin lesionICD-10: N50.9 ICD-9: 608.908esolvedAnemia due to stage 3b chronic kidney diseaseICD- 10: N18.32 ICD-9: 285.2105esolvedChronic kidney disease, stage 3 unspecifiedICD- 10: N18.3004esolvedContact with and (suspected) exposure to other viral communicable diseasesICD-10: Z20.828 ICD-9: V01.7902esolvedHyperhidrosis of palmsICD-10: L74.512 ICD-9: 705.2467ExupuaHazbkekmUlqsfkh90/28/2020ActiveDiabetes mellitus Type 3Mumgsvt85/28/2020ActiveAnemia in chronic kidney diseaseICD-10: D63.1 02/12/2020ResolvedHyperlipidemia, unspecifiedICD-10: E78.Resolved Medications Medication Codes Instructions Start Date Stop Date Status Fill Instructions acetaminophen 500 mg tablet RxNorm: 335381 1 TABLET ORALLY 3 TIMES DAILY (MAX APAP:4GM/24HR) 12/15/19 024 Active potassium chloride ER 20 mEq tablet,extended release RxNorm: 701595 Take 1 Tablet(s) Oral BID 12/09/19 023 Active d/c 20mEq once daily (sent from hospital) clotrimazole 1 % topical cream RxNorm: 246070 apply 1g topically to top of feet and in between toes BID 12/09/19 023 Active nystatin 100,000 unit/gram topical powder RxNorm: 553118 APPLY TO AFFECTED AREAS TOPICALLY 2 TIMES DAILY 11/21/19 024 Active Nystop 100,000 unit/gram topical powder RxNorm: 688896 Apply to abd folds, under breasts and L side of groin Topical BID x 14 days, then BID PRN 11/20/19 023 Inactive dx: yeast dermatitis [place] Ultra Strength 4 %-30 %-10 % topical cream RxNorm: 845089 Apply 1 Gram(s) Topical QID PRN to feet and legs for neuropathic pain 11/11/19 024 Active hydrocortisone 2.5 % topical cream RxNorm: 009244 Apply 1/2 Gram(s) Topical BID as needed 11/10/19 No Stop Date Active clotrimazole 1 % topical cream RxNorm: 016436 Apply 1/2 Gram(s) Topical BID Apply to affected areas of groin, periarea, and abdominal topically 2 times daily 11/10/19 023 Inactive Levemir FlexPen 100 unit/mL (3 mL) solution subcutaneous insulin pen RxNorm: 145046 Inject 30 Unit(s) Subcutaneous BID 10/07/19 024 Active Humulin R U-500 (Concentrated) Insulin 500 unit/mL subcutaneous soln RxNorm: 947408 Inject 100 Unit(s) Subcutaneous TID 10/07/19 024 Active Ozempic 0.25 mg or 0.5 mg (2 mg/3 mL) subcutaneous pen injector RxNorm: 4837877 Inject 1/2 Milligram(s) Subcutaneous QW once a week 10/07/19 024 Active aripiprazole 15 mg tablet RxNorm: 968569 1/2 TAB (7.5MG) ORALLY DAILY (DX:MAJOR DEPRESSIVE DISORDER) 09/23/19 23 023 Active Accu-Chek Guide test strips RxNorm: Use 1 Test Strip QID 09/15/19 23 024 Active ok to substitute with any covered alternative test strip Lancets,Thin 28 gauge RxNorm: Use 1 as directed QID 09/15/19 23 024 Active torsemide 20 mg tablet RxNorm: 066047 Take 1 Tablet(s) Oral BID 09/09/19 024 Active d/c once daily dosing carvedilol 25 mg tablet RxNorm: 504406 Take 1 Tablet(s) Oral QD 08/25/19 23 024 Active pregabalin 150 mg capsule RxNorm: 403527 1 Capsule(s) Oral HS at bed time 08/18/19 23 023 Active pregabalin 100 mg capsule RxNorm: 811350 1 Capsule(s) Oral QAM every morning 08/18/19 023 Active carvedilol 25 mg tablet RxNorm: 355166 1 Tablet(s) Oral QD 07/28/19 023 Inactive lisinopril 20 mg tablet RxNorm: 392082 Give 1 Tablet(s) Oral QD 07/28/19 23 023 Inactive Lyrica 150 mg capsule RxNorm: 801405 Take 1 Capsule(s) Oral QHS every night at bedtime 07/19/19 23 023 Inactive d/c 100mg dose Diflucan 150 mg tablet RxNorm: 582353 Take 1 Tablet(s) Oral QD repeat on day 3 and 6 07/19/19 23 023 Inactive pregabalin 100 mg capsule RxNorm: 423952 Take 1 Capsule(s) Oral QAM every morning 07/19/19 23 023 Inactive gatifloxacin 0.5 % eye drops RxNorm: 896032 Instill 1 Drop(s) as directed TID Instill 1 drop in to affected eye(s) starting 1 day prior to surgery and continue until gone (do not exceed 4 weeks). 07/13/19 23 023 Inactive carvedilol 25 mg tablet RxNorm: 386564 2 Tablet(s) Oral BID 07/13/19 023 Inactive Humulin R Regular U-100 Insulin 100 unit/mL injection solution RxNorm: 119536 85 Unit(s) Injection TID 07/13/19 23 023 Inactive ketorolac 0.5 % eye drops RxNorm: 581389 Instill 1 Drop(s) as directed QID Instill 1 drop into affected eye(s) 4 times daily starting 1 day prior to surgery and continue until gone (do not exceed 4 weeks). 07/13/19 23 023 Inactive Diflucan 150 mg tablet RxNorm: 165247 Take 1 Tablet(s) Oral QD repeat on day 3 and 6 06/30/19 23 023 Inactive Accu-Chek Guide test strips RxNorm: Use 1 Test Strip QID Use 1 test strip to monitor blood glucose 4 times daily and as needed. Dx:E11.42. 06/23/19 23 023 Inactive ok to substitute with any covered alternative test strip dextromethorphan-gu aifenesin 10 mg-100 mg/5 mL oral liquid RxNorm: 924728 Take 10 Milliliter(s) Oral every 4 hours as needed for cough 06/19/19 23 023 Inactive dextromethorphan-gu aifenesin 10 mg-100 mg/5 mL oral liquid RxNorm: 797740 Take 10 Milliliter(s) Oral every 4 hours as needed for cough 06/19/19 23 023 Inactive Lyrica 150 mg capsule RxNorm: 919711 Take 1 Capsule(s) Oral QHS every night at bedtime 06/18/19 23 023 Inactive d/c 100mg dose aripiprazole 15 mg tablet RxNorm: 188250 1/2 TAB (7.5MG) ORALLY DAILY (DX:MAJOR DEPRESSIVE DISORDER) 06/05/19 23 023 Inactive pregabalin 100 mg capsule RxNorm: 040261 1 Capsule(s) Oral QAM every morning 06/02/19 023 Inactive Banophen 50 mg capsule RxNorm: 5449550 Take 1 Capsule(s) Oral Q6H every 6 hours as needed 05/19/19 No Stop Date Active Novolog Flexpen U-100 Insulin aspart 100 unit/mL (3 mL) subcutaneous RxNorm: 3727756 Inject 10 Unit(s) Subcutaneous QHS every night at bedtime with nighttime snack 04/08/20 022 Inactive Novolog Flexpen U-100 Insulin aspart 100 unit/mL (3 mL) subcutaneous RxNorm: 1206625 Inject 42 Unit(s) Subcutaneous TID in addition to sliding scale 04/08/20 Inactive d/c 36u albuterol sulfate HFA 90 mcg/actuation aerosol inhaler RxNorm: 5444005 Take 2 Puff(s) Inhalation Q4H every four hours as needed as needed for SOB, cough, or wheezing 04/07/20 030 Active Banophen 50 mg capsule RxNorm: 3195906 Take 1 Capsule(s) Oral Q6H every 6 hours as needed 04/06/20 023 Inactive diphenhydramine 50 mg tablet RxNorm: 1802390 Take 1 Tablet(s) Oral Q6H every 6 hours as needed 04/06/20 022 Inactive diphenhydramine 50 mg tablet RxNorm: 7141636 1 Tablet(s) Oral Q6H every 6 hours as needed 04/06/20 022 Inactive Abilify 15 mg tablet RxNorm: 287270 1/2 Tablet(s) Oral QD 03/10/20 22 023 Inactive Shingrix (PF) 50 mcg/0.5 mL intramuscular suspension, kit RxNorm: 1300725 Administer 1/2 Milliliter(s) Intramuscular QD one time shingrix step 2 ( step 1 given 11/04/21) WITH needle - Nursing please administer upon arrival and once administered post a bridge message with date of administration, carpet measurer, expiration date, and lot# so we can update [facility] 02/18/20 22 022 Inactive dispense with needle Shingrix (PF) 50 mcg/0.5 mL intramuscular suspension, kit RxNorm: 0827420 Administer 1/2 Milliliter(s) Intramuscular QD one time shingrix step 2 ( step 1 given 11/04/21) WITH needle - Nursing please administer upon arrival and once administered post a bridge message with date of administration, carpet measurer, expiration date, and lot# so we can update [facility] 02/18/20 22 Inactive dispense with needle polyethylene glycol 3350 17 gram/dose oral powder RxNorm: 708706 Take 17=1 capful Gram(s) Oral QD mix with 4-8oz of liquid 01/08/20 22 023 Inactive take this in addition to BID prn order Lyrica 100 mg capsule RxNorm: 904445 Take 1 Capsule(s) Oral QAM every morning 01/08/20 22 022 Inactive d/c 50mg dose acetaminophen 500 mg tablet RxNorm: 340703 Take 1 Tablet(s) Oral TID 01/08/20 22 022 Inactive d/c PRN order Lyrica 150 mg capsule RxNorm: 339547 Take 1 Capsule(s) Oral QHS every night at bedtime 01/08/20 22 023 Inactive d/c 100mg dose Abilify 5 mg tablet RxNorm: 622844 Take 1 Tablet(s) Oral QD take 1 tab po QD #30 refill 5 dx: MDD 12/12/19 22 022 Inactive Abilify 5 mg tablet RxNorm: 693679 Take 1 Tablet(s) Oral QD take 1 tab po QD #30 refill 5 dx: MDD 12/12/19 22 022 Inactive Novolog Flexpen U-100 Insulin aspart 100 unit/mL (3 mL) subcutaneous RxNorm: 6234572 Inject 42 Unit(s) Subcutaneous TID in addition to sliding scale 12/10/19 22 022 Inactive d/c 36u chlorthalidone 25 mg tablet RxNorm: 324915 Take 1 Tablet(s) Oral QAM every morning 12/10/19 22 023 Inactive pregabalin 50 mg capsule RxNorm: 925364 Take 1 Capsule(s) Oral QAM every morning 11/12/19 22 022 Inactive tetanus-diphtheria toxoids-Td 2 Lf unit-2 Lf unit/0.5 mL IM suspension RxNorm: 139 Take 0.5 Miscellaneous Intramuscular 11/12/19 22 022 Inactive need tdap - nursing to administer upon arrival pregabalin 50 mg capsule RxNorm: 398518 Take 1 Capsule(s) Oral QAM every morning 10/16/19 22 022 Inactive pregabalin 50 mg capsule RxNorm: 123224 Take 1 Capsule(s) Oral QAM every morning 10/16/19 22 022 Inactive pregabalin 50 mg capsule RxNorm: 876307 1 Capsule(s) Oral QAM every morning 10/15/19 22 022 Inactive Shingrix (PF) 50 mcg/0.5 mL intramuscular suspension, kit RxNorm: 3649562 Administer 1/2 Milliliter(s) Intramuscular one time Nursing please administer upon arrival and once administered post a bridge message with date of administration, carpet measurer, expiration date, and lot# so we can update [facility]. 10/09/19 22 022 Inactive shingrix step 1 Shingrix (PF) 50 mcg/0.5 mL intramuscular suspension, kit RxNorm: 7797030 Administer 1/2 Milliliter(s) Intramuscular one time Nursing please administer upon arrival and once administered post a bridge message with date of administration, carpet measurer, expiration date, and lot# so we can update [facility]. 10/09/19 22 022 Inactive shingrix step 1 cholecalciferol (vitamin D3) 1,250 mcg (50,000 unit) capsule RxNorm: 770148 Take 1 Capsule(s) Oral QW once a [...] aspart 100 unit/mL (3 mL) subcutaneous RxNorm: 3070786 Inject 10 Unit(s) Subcutaneous QHS every night at bedtime with nighttime snack 10/08/19 22 Inactive Shingrix (PF) 50 mcg/0.5 mL intramuscular suspension, kit RxNorm: 3496579 ADMINISTER 2-DOSE SERIES PER CDC GUIDELINES 10/08/19 22 Active Shingrix (PF) 50 mcg/0.5 mL intramuscular suspension, kit RxNorm: 3377060 ADMINISTER 2-DOSE SERIES PER CDC GUIDELINES 10/08/19 22 Inactive Novolog Flexpen U-100 Insulin aspart 100 unit/mL (3 mL) subcutaneous RxNorm: 0486467 Inject 36 Unit(s) Subcutaneous TID in addition to sliding scale 10/08/19 22 Inactive Novofine Autocover 30 gauge x 1/3 needle RxNorm: Use 1 Miscellaneous UD as directed Use 1 needle as directed to administer insulin 5 times a day Dx:E11.42. 10/03/19 Inactive ok to substitute with any covered alternative pen needle benzoyl peroxide 10 % topical cleanser RxNorm: 604597 Apply 1 Application Topical QD apply to face, wash rinse and dry once daily (may change to QOD if drying) 08/19/19 022 Inactive (%covered by insurance) #60ml refill 11 dx: acne benzoyl peroxide 10 % topical cleanser RxNorm: 267541 Apply 1 Application Topical QD apply to face, wash rinse and dry once daily (may change to QOD if drying) 08/19/19 22 022 Inactive (%covered by insurance) #60ml refill 11 dx: acne benzoyl peroxide 10 % topical cleanser RxNorm: 692919 Apply 1 Application Topical QD apply to face, wash rinse and dry once daily (may change to QOD if drying) 08/19/19 22 022 Inactive (%covered by insurance) #60ml refill 11 dx: acne Lyrica 50 mg capsule RxNorm: 074209 Take 1 Capsule(s) Oral QAM every morning Take 1 capsule by mouth once daily 08/19/19 22 022 Inactive benzoyl peroxide 10 % topical cleanser RxNorm: 330069 Apply 1 Application Topical QD apply to face, wash rinse and dry once daily (may change to QOD if drying) 08/19/19 22 Inactive (%covered by insurance) #60ml refill 11 dx: acne Lyrica 100 mg capsule RxNorm: 484177 Take 1 Capsule(s) Oral QHS every night at bedtime Take 1 capsule by mouth once daily at bedtime 08/19/19 022 Inactive Lyrica 100 mg capsule RxNorm: 878629 Take 1 Capsule(s) Oral QHS every night at bedtime Take 1 capsule by mouth once daily at bedtime 08/16/19 022 Inactive Lyrica 50 mg capsule RxNorm: 433217 Take 1 Capsule(s) Oral QAM every morning Take 1 capsule by mouth once daily 08/16/19 22 022 Inactive Levemir FlexTouch U-100 Insulin 100 unit/mL (3 mL) subcutaneous pen RxNorm: 590600 Inject 86 Unit(s) Subcutaneous BID 08/05/19 22 022 Inactive d/c 83units BID Lyrica 100 mg capsule RxNorm: 467058 Take 1 Capsule(s) Oral QHS every night at bedtime Take 1 capsule by mouth once daily at bedtime 07/14/19 22 022 Inactive Lyrica 50 mg capsule RxNorm: 622270 Take 1 Capsule(s) Oral QAM every morning Take 1 capsule by mouth once daily 07/14/19 22 022 Inactive Levemir FlexTouch U-100 Insulin 100 unit/mL (3 mL) subcutaneous pen RxNorm: 810706 Inject 83 Unit(s) Subcutaneous BID 07/08/19 22 [...] 30 mg tablet,extended release 24 hr RxNorm: 654181 Take 1 Tablet(s) Oral QD 05/05/20 No Stop Date Active hydralazine 50 mg tablet RxNorm: 915181 Take 1 Tablet(s) Oral QID 05/05/20 21 022 Inactive venlafaxine ER 225 mg tablet,extended release 24 hr RxNorm: 806782 Take 1 Tablet(s) Oral QD 05/05/20 21 021 Inactive venlafaxine ER 225 mg tablet,extended release 24 hr RxNorm: 706217 Take 1 Tablet(s) Oral QD 05/05/20 21 022 Inactive hydralazine 50 mg tablet RxNorm: 845679 Take 1 Tablet(s) Oral QID 05/05/20 Inactive aspirin 81 mg tablet,delayed release RxNorm: 700560 Take 1 Tablet(s) Oral QD 03/31/20 Inactive Zetia 10 mg tablet RxNorm: 761352 Take 1 Tablet(s) Oral QD 03/31/20 Inactive Vitamin D2 1,250 mcg (50,000 unit) capsule RxNorm: 3582804 Take 1 Capsule(s) Oral QW once a week x 12 weeks 03/31/20 Inactive Vitamin D2 1,250 mcg (50,000 unit) capsule RxNorm: 4716126 Take 1 Capsule(s) Oral QW once a week 03/31/20 Inactive Zetia 10 mg tablet RxNorm: 652649 Take 1 Tablet(s) Oral QD 03/31/20 Inactive hydralazine 25 mg tablet RxNorm: 216645 Take 1 Tablet(s) Oral QID 03/31/20 021 Inactive hydralazine 25 mg tablet RxNorm: 219839 Take 1 Tablet(s) Oral QID 03/31/20 021 Inactive hydralazine 10 mg tablet RxNorm: 841678 Take 1 Tablet(s) Oral QID 03/03/20 021 Inactive cephalexin 500 mg tablet RxNorm: 778875 Take 1 Tablet(s) Oral QID 02/27/20 021 Inactive cephalexin 500 mg tablet RxNorm: 863938 Take 1 Tablet(s) Oral QID 02/27/20 021 Inactive lisinopril 40 mg tablet RxNorm: 528901 Take 1 Tablet(s) Oral QD 02/11/20 21 023 Inactive Eliquis 5 mg tablet RxNorm: 1268245 Take 1 Tablet(s) Oral BID 01/05/20 21 022 Inactive Eliquis 5 mg tablet RxNorm: 8815102 Take 2 Tablet(s) Oral QD 01/01/20 21 021 Inactive Lyrica 50 mg capsule RxNorm: 217125 Take 1 Capsule(s) Oral QAM every morning 12/24/19 21 021 Inactive Lyrica 100 mg capsule RxNorm: 906363 Take 1 Capsule(s) Oral QHS every night at bedtime 12/24/19 021 Inactive clotrimazole 1 % topical cream RxNorm: 022267 Apply to right foot and toes Topical BID 12/04/19 21 023 Inactive metoprolol succinate ER 200 mg tablet,extended release 24 hr RxNorm: 748223 Take 1 Tablet(s) Oral QD 12/04/19 023 Inactive ciprofloxacin 500 mg tablet RxNorm: 499386 Take 1 Tablet(s) Oral QD 11/30/19 021 Inactive DX ofloxacin otic drops Accu-Chek Guide test strips RxNorm: USE 1 TO CHECK GLUCOSE 4 TIMES DAILY AND NEEDED 11/15/19 21 023 Inactive Blood Glucose Test strips RxNorm: Use 1 Test Strip QID at PRN 11/05/19 21 023 Inactive E11.42 lisinopril 30 mg tablet RxNorm: 051763 Take 1 Tablet(s) Oral QD 10/30/19 021 Inactive lisinopril 20 mg tablet RxNorm: 043563 Take 1 Tablet(s) Oral QD 10/23/19 21 021 Inactive lisinopril 20 mg tablet RxNorm: 979705 Take 1 Tablet(s) Oral QD 10/23/19 021 Inactive lisinopril 10 mg tablet RxNorm: 310331 Take 1 Tablet(s) Oral QD 10/02/19 021 Inactive icosapent ethyl 1 gram capsule RxNorm: 6830627 Take 2 Capsule(s) (2 gm) Oral BID with meals 09/12/19 21 022 Inactive Okay to dispense one 2gm tab if you have that available. icosapent ethyl 1 gram capsule RxNorm: 0663067 Take 2 Capsule(s) Oral BID 09/12/19 21 021 Inactive Okay to dispense one 2gm tab if you have that available. amlodipine 10 mg tablet RxNorm: 481862 Take 1 Tablet(s) Oral QD 09/04/19 022 Inactive aspirin 81 mg tablet,delayed release RxNorm: 107854 Take 1 Tablet(s) Oral QD 09/04/19 021 Inactive Levemir FlexTouch U-100 Insulin 100 unit/mL (3 mL) subcutaneous pen RxNorm: 182837 Inject 150 Unit(s) Subcutaneous BID 09/04/19 022 Inactive venlafaxine ER 150 mg tablet,extended release 24 hr RxNorm: 306913 Take 1 Tablet(s) Oral QD 09/04/19 021 Inactive clotrimazole-betame thasone 1 %-0.05 % topical cream RxNorm: 824273 Apply to rash on red area on left abdomen/chest Topical BID 08/10/19 21 Inactive amlodipine 5 mg tablet RxNorm: 431317 Take 1 Tablet(s) Oral QD 07/31/19 Inactive cephalexin 500 mg tablet RxNorm: 071885 Take 1 Tablet(s) Oral BID BID - Twice Daily 07/31/19 021 Inactive Start 08/01/20 pantoprazole 40 mg tablet,delayed release RxNorm: 908365 Take 1 Tablet(s) Oral QAM every morning 07/08/19 022 Inactive senna 8.6 mg tablet RxNorm: 662190 Take 1 Tablet(s) Oral QD 07/08/19 022 Inactive pravastatin 80 mg tablet RxNorm: 604118 Take 1 Tablet(s) Oral QHS every night at bedtime 07/08/19 022 Inactive carbamazepine 200 mg tablet RxNorm: 869472 Take 1 Tablet(s) Oral BID 07/08/19 21 022 Inactive clopidogrel 75 mg tablet RxNorm: 613851 Take 1 Tablet(s) Oral QD 07/08/19 21 021 Inactive Blood Glucose Test strips RxNorm: Use 1 Test Strip QID at PRN 07/08/19 21 021 Inactive E11.42 Novolog Flexpen U-100 Insulin aspart 100 unit/mL (3 mL) subcutaneous RxNorm: 9843306 Administer per sliding scale Milliliter(s) Subcutaneous TID 151-200: 10 u; 201-250: 20 u; 251-300: 30 u; 301-350: 40 u; 351-400: 50 u. 07/08/19 21 022 Inactive lisinopril 5 mg tablet RxNorm: 262568 Take 1 Tablet(s) Oral QD 07/08/19 021 Inactive Novolog Flexpen U-100 Insulin aspart 100 unit/mL (3 mL) subcutaneous RxNorm: 1642230 Inject 85 Unit(s) Subcutaneous TID 07/08/19 21 022 Inactive clotrimazole 1 % topical cream RxNorm: 714510 Apply to bilateral groin areas Topical BID 07/08/19 21 022 Inactive metoprolol succinate ER 200 mg tablet,extended release 24 hr RxNorm: 011839 Take 1 Tablet(s) Oral QD 07/08/19 021 Inactive Vitamin D3 25 mcg (1,000 unit) tablet RxNorm: 832894 Take 1 Tablet(s) Oral QD 07/08/19 021 Inactive isosorbide dinitrate 30 mg tablet RxNorm: 611892 Take 1 Tablet(s) Oral QD 07/08/19 021 Inactive Levemir FlexTouch U-100 Insulin 100 unit/mL (3 mL) subcutaneous pen RxNorm: 354478 Inject 140 Unit(s) Subcutaneous BID 07/08/19 21 021 Inactive torsemide 20 mg tablet RxNorm: 937867 Take 1 Tablet(s) Oral QD 07/08/19 21 023 Inactive venlafaxine 75 mg tablet RxNorm: 505740 Take 1 Tablet(s) Oral QD 07/08/19 021 Inactive acetaminophen 500 mg tablet RxNorm: 738556 Take 1 Tablet(s) Oral TID as needed for headache 06/18/19 21 021 Inactive acetaminophen 500 mg tablet RxNorm: 028441 Take 1 Tablet(s) Oral TID as needed for headache 06/18/19 21 021 Inactive Lyrica 100 mg capsule RxNorm: 190989 Take 1 Capsule(s) Oral QHS every night at bedtime 06/11/19 21 021 Inactive Lyrica 50 mg capsule RxNorm: 282627 Take 1 Capsule(s) Oral QAM every morning 06/10/19 21 021 Inactive hydrocortisone 2.5 % topical cream RxNorm: 297999 Apply to bilateral groin creases Topical BID 05/15/20 20 021 Inactive clotrimazole 1 % topical cream RxNorm: 175956 Apply to bilateral groin areas Topical BID 05/15/20 20 021 Inactive Lyrica 50 mg capsule RxNorm: 095277 Take 1 Capsule(s) Oral QAM every morning 05/14/20 20 Inactive Lyrica 100 mg capsule RxNorm: 555801 Take 1 Capsule(s) Oral QHS every night [...] Inactive Nystop 100,000 unit/gram topical powder RxNorm: 181957 Apply to abd folds, under breasts and L side of groin Topical BID x 14 days, then BID PRN 04/08/20 20 020 Inactive dx: yeast dermatitis Lyrica 100 mg capsule RxNorm: 987635 Take 1 Capsule(s) Oral QHS every night at bedtime 03/13/20 20 020 Inactive Lyrica 50 mg capsule RxNorm: 155177 Take 1 Capsule(s) Oral QAM every morning 03/13/20 20 Inactive ketoconazole 2 % shampoo RxNorm: 310312 Apply Topical two times a week with showers 03/11/20 20 Inactive cholecalciferol (vitamin D3) 50 mcg (2,000 unit) tablet RxNorm: 224613 Take 1 Tablet(s) Oral QD 03/11/20 20 Inactive Zetia 10 mg tablet RxNorm: 495239 Take 1 Tablet(s) Oral QD 03/07/20 20 Inactive Zetia 10 mg tablet RxNorm: 700303 Take 1 Tablet(s) Oral QD 03/07/20 20 Inactive Lyrica 50 mg capsule RxNorm: 908093 Take 1 Capsule(s) Oral QAM every morning 02/15/20 20 Inactive Lyrica 100 mg capsule RxNorm: 588544 Take 1 Capsule(s) Oral QHS every night at bedtime 02/15/20 20 Inactive Lyrica 100 mg capsule RxNorm: 311023 Take 1 Capsule(s) Oral QHS every night at bedtime 02/15/20 20 Inactive Lyrica 50 mg capsule RxNorm: 558790 Take 1 Capsule(s) Oral QAM every morning 02/15/20 20 Inactive venlafaxine ER 75 mg capsule,extended release 24 hr RxNorm: 553470 Take 3 Capsule(s) Oral QD 06/12/2021 Activepolyethylene glycol 3350 17 gram/dose oral powderRxNorm: 100831Rcta 17=1 capful Gram(s) Oral BID as needed mix with 4-8oz of arjqdn1906/12/2021ctive metoprolol succinate ER 200 mg tablet,extended release 24 hrRxNorm: 573140Occa 1 Tablet(s) Oral QD08/11/2022ctiveloperamide 2 mg capsuleRxNorm: 063479Iuyr 1 Capsule(s) Oral QID as tnvnit7706/12/2021ctivehydralazine 50 mg tabletRxNorm: 231311Nkmi 1 Tablet(s) Oral QID08/11/2022ctiveicosapent ethyl 1 gram capsule RxNorm: 3213469Yowx 2 Capsule(s) (2 gm) Oral BID with meals/ InactiveOkay to dispense one 2gm tab if you have that available.Levemir FlexTouch U-100 Insulin 100 unit/mL (3 mL) subcutaneous penRxNorm: 913473Pbyqzj 80 Unit(s) Subcutaneous BID/InactiveNovolog Flexpen U-100 Insulin aspart 100 unit/mL (3 mL) subcutaneousRxNorm: 2537762Dijknh 30 Unit(s) Subcutaneous TID with meals/Inactive Medication [...] Status Date Patient Education: Patient Medication Summary Mlsydzkgf10/12/2023atient Education: Influenza ModtpnuBpbefavwc71/12/2023 Appointment: Sandra Clark WPtel: [address] [place], [place] [id number] [facility] Psych Follow Up12/09/2022ppointment: Tapan Shirley WPtel: [address] [facility] [address] [id number] USTCM10/26/2022Referral: [facility] WPtel: [address], [address] [id number] USReferralRecords Rrvozygx88/08/2023ppointment: Tapan Shirley WPtel: [address] [facility] [address] [id number] USF/U008/11/2022ppointment: Tapan Shirley WPtel: [address] [facility] [address] [id number] USF/U007/14/2022ppointment: Tapan Shirley WPtel: [address] [facility] [address] [id number] USF/2Referral: [facility] WPtel: [address] [facility] [address] [id number] UVOmwyphywFbyiafhaj33/12/2022Referral: General CardiologyReferralCompleted 1Referral: General PsychologistReferralClosed Instructions Comment [...] Sister Jyotsna involved in his care cell# [phone] Guardian: Don (tapan met in person 09/01/21), now has Lexii (same group as don)Lab Schedule: * 01/12/2023
--- OUTSIDE RECORDS SUMMARY | 2023-02-18 18:13 | XMS_ITS | CCD ---
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 Ortho Tech Name Role Phone Chelo Fonseca PA-C Primary Care Provider Unavaila ble Chelo Fonseca PA-C Chronic Care Management Nicole archer Summary Purpose DataExchange Insurance Providers Payer name Policy type / Coverage type Covered constitution party ID Effective Begin Date Effective End Date Medicare [place] Medicare Part B [id number] Unknown Unknown Medicaid [place] Part B [id number] Unknown Unknown Family history Sister Brittany Suggs [...] Assisted 09/03/[address]: 1708478 Non-Smoker / No History of Smoking 09/02/[address]: 607142662 No Alcohol Consum ption 09/02/2020 Allergies, Adverse Reactions, Alerts Substance Reaction Codes Entered Date Inactivated Date Status LISINOPRIL RxNorm: 2624354No Inactive DateActiveMetformin [id number] Inactive DateActive Problems Condition Codes Effective Dates Condition St atus Annual physical exam ICD-10: Z00.00 ICD-9: V70.009/ctiveCoronary artery disease involving elem coronary artery of elem heart, angina presence unspecifiedICD-10: I25.10 ICD-9: 414.0109/ctiveEncounter for other specified special examinations ICD-10: Z01.89 ICD-9: V72.8509/ctiveEncounter for screening for nutritional disorder ICD-10: Z13.21 ICD-9: V77.9909/ctiveHyperlipidemia associated with type 2 diabetes mellitusICD-10: E11.69 ICD-9: 250.8009/ctiveOther half-way (current) drug therapyICD-10: Z79.899 ICD-9: V58.6909/ctiveStage 2 chronic 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ICD-10: E11.22 ICD-9: 250.4009/ctiveType 2 diabetes mellitus with diabetic polyneuropathy, with long-term current use of insulinICD-10: E11.42 ICD-9: 250.6009/ctiveHypertensive heart disease without heart failure ICD-10: I11.9 ICD-9: 402.9007/ctiveHypokalemiaICD-10: E87.6 ICD-9: 276.807/ctiveTinea pedis of both feetICD-10: B35.3 ICD-9: 110.407/ctiveOnychogryposisICD-10: L60.2 ICD-9: 703.806/ctiveParaparesis of both lower limbsICD-10: G82.20 ICD-9: 344.106/ctiveConstipation by delayed colonic transitICD-10: K59.01 ICD-9: 564.0105/ctiveLower extremity edemaICD-10: R60.0 ICD-9: 782.305/ctivePain of right heelICD-10: M79.671 ICD-9: 729.505/ctiveRecurrent major depressive disorder, in partial remissionICD-10: F33.41 ICD-9: 296.3505/ctiveAmputated toe of right footICD-10: S98.131A ICD-9: 895.003/ctivePre-op evaluationICD-10: Z01.818 ICD-9: V72.8403/ctiveSecondary hypertensionICD-10: I15.9 ICD-9: 405.9903/ctiveCandidiasis, intertrigoICD-10: B37.2 ICD-9: 112.302/28/2023ActiveMajor depression, recurrentICD-10: F33.9 ICD-9: 296.3002/3ActiveVitamin D deficiencyICD-10: E55.9 ICD-9: 268.912/ctiveShortness of breathICD-10: R06.02 ICD-9: 786.0511/ctiveSeizure disorderICD-10: G40.909 ICD-9: 345.9011/ctiveCellulitisICD-10: L03.90 ICD-9: 682.910/ctiveReducible umbilical herniaICD-10: K42.9 ICD-9: 553.110/ctiveBMI 60.0-69.9, adultICD-10: Z68.44 ICD-9: V85.4410/ctiveInappropriate sexual behaviorICD-10: Z72.89 ICD-9: 312.8910/ctiveHx of deep venous thrombosisICD-10: Z86.718 ICD-9: V12.5109/ctiveHypercoagulable stateICD-10: D68.59 ICD-9: 289.8109ctivePVD (peripheral vascular disease)ICD-10: I73.9 ICD-9: 443.909/ctiveDepressionICD-10: F32.9 ICD-9: 03288/esolvedDVT (deep venous thrombosis)ICD-10: I82.409 ICD-9: 453.4009/2ResolvedEncounter for immunizationICD-10: Z23 ICD-9: V03.8909/2ResolvedLong term (current) use of insulinICD-10: Z79.4 2ResolvedMuscular painICD-10: M79.10 ICD-9: 729.109/esolvedDandruff in adultICD-10: L21.0 ICD-9: 690.1808/ctiveHypertension associated with diabetesICD-10: E11.59 ICD-9: 250.8008/2ResolvedHistory of anemia due to CKDICD-10: N18.9 ICD-9: 585.907/2ActiveStage 2 chronic kidney diseaseICD-10: N18.2 ICD-9: 585.207/ctiveGout due to renal impairmentICD-10: M10.30 ICD-9: 274.1006/ctiveLearning disabilityICD-10: F81.9 ICD-9: 315.212/ctiveSkin tagICD-10: L91.8 ICD-9: 701.911/ctiveCallus of heelICD-10: L84 ICD-9: 10368ctiveImpacted cerumen, left earICD-10: H61.22 ICD-9: 380.408/ctiveContact with and (suspected) exposure to covid-19 ICD-10: Z20.822 ICD-9: V01.7908/1ResolvedOther infective acute otitis externa of left ear ICD-10: H60.392 ICD-9: 380.1008esolvedScrotal skin lesionICD-10: N50.9 ICD-9: 608.908/esolvedAnemia due to stage 3b chronic kidney diseaseICD- 10: N18.32 ICD-9: 285.2105esolvedChronic kidney disease, stage 3 unspecifiedICD- 10: N18.3004esolvedContact with and (suspected) exposure to other viral communicable diseasesICD-10: Z20.828 ICD-9: V01.7902esolvedHyperhidrosis of palmsICD-10: L74.512 ICD-9: 705.6603HugohkQtilxcgeVectyum38/28/2020ActiveDiabetes mellitus Type 2Mcnfnqk26/28/2020ActiveAnemia in chronic kidney diseaseICD-10: D63.1 02/12/2020ResolvedHyperlipidemia, unspecifiedICD-10: E78.509Resolved Medications Medication Codes Instructions Start Date Stop Date Status Fill Instructions venlafaxine ER 75 mg capsule,extended release 24 hr RxNorm: 236965 Take 3 Capsule(s) Oral QD 02/04/20 23 023 Inactive FreeStyle Chema 2 Sensor kit RxNorm: use as directed 02/04/20 23 023 Inactive FreeStyle Chema 2 Sensor kit RxNorm: use as directed 02/04/20 23 024 Active fluconazole 150 mg tablet RxNorm: 902759 Take 1 Tablet(s) Oral on day 3 and on day 6 02/03/20 23 024 Active chlorthalidone 25 mg tablet RxNorm: 313549 Take 1 Tablet(s) Oral QAM every morning 02/03/20 No Stop Date Active venlafaxine ER 150 mg capsule,extended release 24 hr RxNorm: 476919 Take 1 Capsule(s) Oral QD 02/03/20 23 023 Inactive acetaminophen 500 mg tablet RxNorm: 792178 1 TABLET ORALLY 3 TIMES DAILY (MAX APAP:4GM/24HR) 12/15/19 23 024 Active potassium chloride ER 20 mEq tablet,extended release RxNorm: 351193 Take 1 Tablet(s) Oral BID 12/09/19 23 023 Active d/c 20mEq once daily (sent from hospital) clotrimazole 1 % topical cream RxNorm: 427628 apply 1g topically to top of feet and in between toes BID 12/09/19 23 023 Active nystatin 100,000 unit/gram topical powder RxNorm: 813337 APPLY TO AFFECTED AREAS TOPICALLY 2 TIMES DAILY 11/21/19 23 024 Active Nystop 100,000 unit/gram topical powder RxNorm: 182825 Apply to abd folds, under breasts and L side of groin Topical BID x 14 days, then BID PRN 11/20/19 23 023 Inactive dx: yeast dermatitis Bengay Ultra Strength 4 %-30 %-10 % topical cream RxNorm: 038288 Apply 1 Gram(s) Topical QID PRN to feet and legs for neuropathic pain 11/11/19 024 Active hydrocortisone 2.5 % topical cream RxNorm: 860737 Apply 1/2 Gram(s) Topical BID as needed 11/10/19 No Stop Date Active clotrimazole 1 % topical cream RxNorm: 020924 Apply 1/2 Gram(s) Topical BID Apply to affected areas of groin, periarea, and abdominal topically 2 times daily 11/10/19 023 Inactive Levemir FlexPen 100 unit/mL (3 mL) solution subcutaneous insulin pen RxNorm: 537055 Inject 30 Unit(s) Subcutaneous BID 10/07/19 024 Active Humulin R U-500 (Concentrated) Insulin 500 unit/mL subcutaneous soln RxNorm: 075006 Inject 100 Unit(s) Subcutaneous TID 10/07/19 024 Active Ozempic 0.25 mg or 0.5 mg (2 mg/3 mL) subcutaneous pen injector RxNorm: 7570993 Inject 1/2 Milligram(s) Subcutaneous QW once a week 10/07/19 024 Active aripiprazole 15 mg tablet RxNorm: 276225 1/2 TAB (7.5MG) ORALLY DAILY (DX:MAJOR DEPRESSIVE DISORDER) 09/23/19 023 Active Accu-Chek Guide test strips RxNorm: Use 1 Test Strip QID 09/15/19 23 024 Active ok to substitute with any covered alternative test strip Lancets,Thin 28 gauge RxNorm: Use 1 as directed QID 09/15/19 23 024 Active torsemide 20 mg tablet RxNorm: 787148 Take 1 Tablet(s) Oral BID 09/09/19 23 024 Active d/c once daily dosing carvedilol 25 mg tablet RxNorm: 931248 Take 1 Tablet(s) Oral QD 08/25/19 024 Active pregabalin 150 mg capsule RxNorm: 815081 1 Capsule(s) Oral HS at bed time 08/18/19 023 Inactive pregabalin 100 mg capsule RxNorm: 430031 1 Capsule(s) Oral QAM every morning 08/18/19 23 023 Inactive carvedilol 25 mg tablet RxNorm: 242033 1 Tablet(s) Oral QD 07/28/19 23 023 Inactive lisinopril 20 mg tablet RxNorm: 175614 Give 1 Tablet(s) Oral QD 07/28/19 23 023 Inactive Lyrica 150 mg capsule RxNorm: 564690 Take 1 Capsule(s) Oral QHS every night at bedtime 07/19/19 23 023 Inactive d/c 100mg dose Diflucan 150 mg tablet RxNorm: 280261 Take 1 Tablet(s) Oral QD repeat on day 3 and 6 07/19/19 23 023 Inactive pregabalin 100 mg capsule RxNorm: 791331 Take 1 Capsule(s) Oral QAM every morning 07/19/19 23 023 Inactive gatifloxacin 0.5 % eye drops RxNorm: 687286 Instill 1 Drop(s) as directed TID Instill 1 drop in to affected eye(s) starting 1 day prior to surgery and continue until gone (do not exceed 4 weeks). 07/13/19 23 023 Inactive carvedilol 25 mg tablet RxNorm: 820091 2 Tablet(s) Oral BID 07/13/19 023 Inactive Humulin R Regular U-100 Insulin 100 unit/mL injection solution RxNorm: 958678 85 Unit(s) Injection TID 07/13/19 23 023 Inactive ketorolac 0.5 % eye drops RxNorm: 419068 Instill 1 Drop(s) as directed QID Instill 1 drop into affected eye(s) 4 times daily starting 1 day prior to surgery and continue until gone (do not exceed 4 weeks). 07/13/19 23 023 Inactive Diflucan 150 mg tablet RxNorm: 590669 Take 1 Tablet(s) Oral QD repeat on day 3 and 6 06/30/19 23 023 Inactive Accu-Chek Guide test strips RxNorm: Use 1 Test Strip QID Use 1 test strip to monitor blood glucose 4 times daily and as needed. Dx:E11.42. 06/23/19 23 023 Inactive ok to substitute with any covered alternative test strip dextromethorphan-gu aifenesin 10 mg-100 mg/5 mL oral liquid RxNorm: 881813 Take 10 Milliliter(s) Oral every 4 hours as needed for cough 06/19/19 023 Inactive dextromethorphan-gu aifenesin 10 mg-100 mg/5 mL oral liquid RxNorm: 581638 Take 10 Milliliter(s) Oral every 4 hours as needed for cough 06/19/19 023 Inactive Lyrica 150 mg capsule RxNorm: 886379 Take 1 Capsule(s) Oral QHS every night at bedtime 06/18/19 023 Inactive d/c 100mg dose aripiprazole 15 mg tablet RxNorm: 012245 /2 TAB (7.5MG) ORALLY DAILY (DX:MAJOR DEPRESSIVE DISORDER) 06/05/19 023 Inactive pregabalin 100 mg capsule RxNorm: 834264 1 Capsule(s) Oral QAM every morning 06/02/19 023 Inactive Banophen 50 mg capsule RxNorm: 7805291 Take 1 Capsule(s) Oral Q6H every 6 hours as needed 05/19/19 23 No Stop Date Active Novolog Flexpen U-100 Insulin aspart 100 unit/mL (3 mL) subcutaneous RxNorm: 0122383 Inject 10 Unit(s) Subcutaneous QHS every night at bedtime with nighttime snack 04/08/20 022 Inactive Novolog Flexpen U-100 Insulin aspart 100 unit/mL (3 mL) subcutaneous RxNorm: 4958922 Inject 42 Unit(s) Subcutaneous TID in addition to sliding scale 04/08/20 022 Inactive d/c 36u albuterol sulfate HFA 90 mcg/actuation aerosol inhaler RxNorm: 7598397 Take 2 Puff(s) Inhalation Q4H every four hours as needed as needed for SOB, cough, or wheezing 04/07/20 030 Active Banophen 50 mg capsule RxNorm: 8520637 Take 1 Capsule(s) Oral Q6H every 6 hours as needed 04/06/20 023 Inactive diphenhydramine 50 mg tablet RxNorm: 3904138 Take 1 Tablet(s) Oral Q6H every 6 hours as needed 04/06/20 22 022 Inactive diphenhydramine 50 mg tablet RxNorm: 7709638 1 Tablet(s) Oral Q6H every 6 hours as needed 04/06/20 22 022 Inactive Abilify 15 mg tablet RxNorm: 162095 1/2 Tablet(s) Oral QD 03/10/20 023 Inactive Shingrix (PF) 50 mcg/0.5 mL intramuscular suspension, kit RxNorm: 9027341 Administer 1/2 Milliliter(s) Intramuscular QD one time shingrix step 2 ( step 1 given 11/04/21) WITH needle - Nursing please administer upon arrival and once administered post a bridge message with date of administration, thermoforming operator, expiration date, and lot# so we can update [facility] 02/18/20 22 Inactive dispense with needle Shingrix (PF) 50 mcg/0.5 mL intramuscular suspension, kit RxNorm: 9645775 Administer 1/2 Milliliter(s) Intramuscular QD one time shingrix step 2 ( step 1 given 11/04/21) WITH needle - Nursing please administer upon arrival and once administered post a bridge message with date of administration, thermoforming operator, expiration date, and lot# so we can update [facility] 02/18/20 22 022 Inactive dispense with needle polyethylene glycol 3350 17 gram/dose oral powder RxNorm: 130226 Take 17=1 capful Gram(s) Oral QD mix with 4-8oz of liquid 01/08/20 22 023 Inactive take this in addition to BID prn order Lyrica 100 mg capsule RxNorm: 526429 Take 1 Capsule(s) Oral QAM every morning 01/08/20 22 022 Inactive d/c 50mg dose acetaminophen 500 mg tablet RxNorm: 100656 Take 1 Tablet(s) Oral TID 01/08/20 22 022 Inactive d/c PRN order Lyrica 150 mg capsule RxNorm: 857704 Take 1 Capsule(s) Oral QHS every night at bedtime 01/08/2007 06/20/2 023 Inactive d/c 100mg dose Abilify 5 mg tablet RxNorm: 257434 Take 1 Tablet(s) Oral QD take 1 tab po QD #30 refill 5 dx: MDD 12/12/19 22 022 Inactive Abilify 5 mg tablet RxNorm: 263386 Take 1 Tablet(s) Oral QD take 1 tab po QD #30 refill 5 dx: MDD 12/12/19 22 022 Inactive Novolog Flexpen U-100 Insulin aspart 100 unit/mL (3 mL) subcutaneous RxNorm: 5634506 Inject 42 Unit(s) Subcutaneous TID in addition to sliding scale 12/10/19 22 022 Inactive d/c 36u chlorthalidone 25 mg tablet RxNorm: 689916 Take 1 Tablet(s) Oral QAM every morning 12/10/19 22 023 Inactive pregabalin 50 mg capsule RxNorm: 306340 Take 1 Capsule(s) Oral QAM every morning 11/12/19 22 022 Inactive tetanus-diphtheria toxoids-Td 2 Lf unit-2 Lf unit/0.5 mL IM suspension RxNorm: 139 Take 0.5 Miscellaneous Intramuscular 11/12/19 22 022 Inactive need tdap - nursing to administer upon arrival pregabalin 50 mg capsule RxNorm: 753966 Take 1 Capsule(s) Oral QAM every morning 10/16/19 22 022 Inactive pregabalin 50 mg capsule RxNorm: 203760 Take 1 Capsule(s) Oral QAM every morning 10/16/19 22 022 Inactive pregabalin 50 mg capsule RxNorm: 605882 1 Capsule(s) Oral QAM every morning 10/15/19 22 022 Inactive Shingrix (PF) 50 mcg/0.5 mL intramuscular suspension, kit RxNorm: 6320741 Administer 1/2 Milliliter(s) Intramuscular one time Nursing please administer upon arrival and once administered post a bridge message with date of administration, thermoforming operator, expiration date, and lot# so we can update [facility]. 10/09/19 22 022 Inactive shingrix step 1 Shingrix (PF) 50 mcg/0.5 mL intramuscular suspension, kit RxNorm: 1008482 Administer 1/2 Milliliter(s) Intramuscular one time Nursing please administer upon arrival and once administered post a bridge message with date of administration, thermoforming operator, expiration date, and lot# so we can update [facility]. 10/09/19 22 Inactive shingrix step 1 cholecalciferol (vitamin D3) 1,250 mcg (50,000 unit) capsule RxNorm: 008901 Take 1 Capsule(s) Oral QW once a [...] aspart 100 unit/mL (3 mL) subcutaneous RxNorm: 9318748 Inject 10 Unit(s) Subcutaneous QHS every night at bedtime with nighttime snack 10/08/19 22 Inactive Shingrix (PF) 50 mcg/0.5 mL intramuscular suspension, kit RxNorm: 6978592 ADMINISTER 2-DOSE SERIES PER CDC GUIDELINES 10/08/19 22 Active Shingrix (PF) 50 mcg/0.5 mL intramuscular suspension, kit RxNorm: 3204285 ADMINISTER 2-DOSE SERIES PER CDC GUIDELINES 10/08/19 22 022 Inactive Novolog Flexpen U-100 Insulin aspart 100 unit/mL (3 mL) subcutaneous RxNorm: 2006048 Inject 36 Unit(s) Subcutaneous TID in addition to sliding scale 10/08/19 22 Inactive Novofine Autocover 30 gauge x 1/3 needle RxNorm: Use 1 Miscellaneous UD as directed Use 1 needle as directed to administer insulin 5 times a day Dx:E11.42. 10/03/19 22 022 Inactive ok to substitute with any covered alternative pen needle benzoyl peroxide 10 % topical cleanser RxNorm: 507184 Apply 1 Application Topical QD apply to face, wash rinse and dry once daily (may change to QOD if drying) 08/19/19 22 022 Inactive (%covered by insurance) #60ml refill 11 dx: acne benzoyl peroxide 10 % topical cleanser RxNorm: 893290 Apply 1 Application Topical QD apply to face, wash rinse and dry once daily (may change to QOD if drying) 08/19/19 22 022 Inactive (%covered by insurance) #60ml refill 11 dx: acne benzoyl peroxide 10 % topical cleanser RxNorm: 319896 Apply 1 Application Topical QD apply to face, wash rinse and dry once daily (may change to QOD if drying) 08/19/19 22 022 Inactive (%covered by insurance) #60ml refill 11 dx: acne Lyrica 50 mg capsule RxNorm: 919754 Take 1 Capsule(s) Oral QAM every morning Take 1 capsule by mouth once daily 08/19/19 22 022 Inactive benzoyl peroxide 10 % topical cleanser RxNorm: 142058 Apply 1 Application Topical QD apply to face, wash rinse and dry once daily (may change to QOD if drying) 08/19/19 22 022 Inactive (%covered by insurance) #60ml refill 11 dx: acne Lyrica 100 mg capsule RxNorm: 785245 Take 1 Capsule(s) Oral QHS every night at bedtime Take 1 capsule by mouth once daily at bedtime 08/19/19 22 022 Inactive Lyrica 100 mg capsule RxNorm: 129714 Take 1 Capsule(s) Oral QHS every night at bedtime Take 1 capsule by mouth once daily at bedtime 08/16/19 22 022 Inactive Lyrica 50 mg capsule RxNorm: 924042 Take 1 Capsule(s) Oral QAM every morning Take 1 capsule by mouth once daily 08/16/19 22 Inactive Levemir FlexTouch U-100 Insulin 100 unit/mL (3 mL) subcutaneous pen RxNorm: 454375 Inject 86 Unit(s) Subcutaneous BID 08/05/19 22 022 Inactive d/c 83units BID Lyrica 100 mg capsule RxNorm: 591742 Take 1 Capsule(s) Oral QHS every night at bedtime Take 1 capsule by mouth once daily at bedtime 07/14/19 22 022 Inactive Lyrica 50 mg capsule RxNorm: 626429 Take 1 Capsule(s) Oral QAM every morning Take 1 capsule by mouth once daily 07/14/19 22 022 Inactive Levemir FlexTouch U-100 Insulin 100 unit/mL (3 mL) subcutaneous pen RxNorm: 480499 Inject 83 Unit(s) Subcutaneous BID 07/08/19 22 [...] 30 mg tablet,extended release 24 hr RxNorm: 504220 Take 1 Tablet(s) Oral QD 05/05/20 No Stop Date Active hydralazine 50 mg tablet RxNorm: 182683 Take 1 Tablet(s) Oral QID 05/05/20 21 022 Inactive venlafaxine ER 225 mg tablet,extended release 24 hr RxNorm: 239457 Take 1 Tablet(s) Oral QD 05/05/20 Inactive venlafaxine ER 225 mg tablet,extended release 24 hr RxNorm: 926817 Take 1 Tablet(s) Oral QD 05/05/20 022 Inactive hydralazine 50 mg tablet RxNorm: 210801 Take 1 Tablet(s) Oral QID 05/05/20 Inactive aspirin 81 mg tablet,delayed release RxNorm: 574984 Take 1 Tablet(s) Oral QD 03/31/20 022 Inactive Zetia 10 mg tablet RxNorm: 335040 Take 1 Tablet(s) Oral QD 03/31/20 022 Inactive Vitamin D2 1,250 mcg (50,000 unit) capsule RxNorm: 6197648 Take 1 Capsule(s) Oral QW once a week x 12 weeks 03/31/20 022 Inactive Vitamin D2 1,250 mcg (50,000 unit) capsule RxNorm: 3718090 Take 1 Capsule(s) Oral QW once a week 03/31/20 Inactive Zetia 10 mg tablet RxNorm: 277823 Take 1 Tablet(s) Oral QD 03/31/20 Inactive hydralazine 25 mg tablet RxNorm: 710435 Take 1 Tablet(s) Oral QID 03/31/20 021 Inactive hydralazine 25 mg tablet RxNorm: 075647 Take 1 Tablet(s) Oral QID 11/15/20 21 11/15/2 021 Inactive hydralazine 10 mg tablet RxNorm: 360040 Take 1 Tablet(s) Oral QID 03/03/20 021 Inactive cephalexin 500 mg tablet RxNorm: 676565 Take 1 Tablet(s) Oral QID 02/27/20 021 Inactive cephalexin 500 mg tablet RxNorm: 485995 Take 1 Tablet(s) Oral QID 02/27/20 021 Inactive lisinopril 40 mg tablet RxNorm: 932990 Take 1 Tablet(s) Oral QD 02/11/20 023 Inactive Eliquis 5 mg tablet RxNorm: 1507640 Take 1 Tablet(s) Oral BID 01/05/20 022 Inactive Eliquis 5 mg tablet RxNorm: 6392837 Take 2 Tablet(s) Oral QD 01/01/20 021 Inactive Lyrica 50 mg capsule RxNorm: 150646 Take 1 Capsule(s) Oral QAM every morning 12/24/19 021 Inactive Lyrica 100 mg capsule RxNorm: 096999 Take 1 Capsule(s) Oral QHS every night at bedtime 12/24/19 021 Inactive clotrimazole 1 % topical cream RxNorm: 276543 Apply to right foot and toes Topical BID 12/04/19 21 023 Inactive metoprolol succinate ER 200 mg tablet,extended release 24 hr RxNorm: 321916 Take 1 Tablet(s) Oral QD 12/04/19 023 Inactive ciprofloxacin 500 mg tablet RxNorm: 905292 Take 1 Tablet(s) Oral QD 11/30/19 021 Inactive DX ofloxacin otic drops Accu-Chek Guide test strips RxNorm: USE 1 TO CHECK GLUCOSE 4 TIMES DAILY AND NEEDED 11/15/19 21 023 Inactive Blood Glucose Test strips RxNorm: Use 1 Test Strip QID at PRN 11/05/19 21 023 Inactive E11.42 lisinopril 30 mg tablet RxNorm: 880667 Take 1 Tablet(s) Oral QD 10/30/19 021 Inactive lisinopril 20 mg tablet RxNorm: 800753 Take 1 Tablet(s) Oral QD 10/23/19 21 021 Inactive lisinopril 20 mg tablet RxNorm: 934187 Take 1 Tablet(s) Oral QD 10/23/19 21 021 Inactive lisinopril 10 mg tablet RxNorm: 975096 Take 1 Tablet(s) Oral QD 10/02/19 21 021 Inactive icosapent ethyl 1 gram capsule RxNorm: 6485532 Take 2 Capsule(s) (2 gm) Oral BID with meals 09/12/19 022 Inactive Okay to dispense one 2gm tab if you have that available. icosapent ethyl 1 gram capsule RxNorm: 0845473 Take 2 Capsule(s) Oral BID 09/12/19 021 Inactive Okay to dispense one 2gm tab if you have that available. amlodipine 10 mg tablet RxNorm: 348355 Take 1 Tablet(s) Oral QD 09/04/19 022 Inactive aspirin 81 mg tablet,delayed release RxNorm: 435695 Take 1 Tablet(s) Oral QD 09/04/19 Inactive Levemir FlexTouch U-100 Insulin 100 unit/mL (3 mL) subcutaneous pen RxNorm: 318748 Inject 150 Unit(s) Subcutaneous BID 09/04/19 022 Inactive venlafaxine ER 150 mg tablet,extended release 24 hr RxNorm: 988152 Take 1 Tablet(s) Oral QD 09/04/19 21 021 Inactive clotrimazole-betame thasone 1 %-0.05 % topical cream RxNorm: 486202 Apply to rash on red area on left abdomen/chest Topical BID 08/10/19 21 021 Inactive amlodipine 5 mg tablet RxNorm: 176322 Take 1 Tablet(s) Oral QD 07/31/19 21 Inactive cephalexin 500 mg tablet RxNorm: 550570 Take 1 Tablet(s) Oral BID BID - Twice Daily 07/31/19 21 021 Inactive Start 3/18/21 pantoprazole 40 mg tablet,delayed release RxNorm: 666706 Take 1 Tablet(s) Oral QAM every morning 07/08/19 Inactive senna 8.6 mg tablet RxNorm: 053844 Take 1 Tablet(s) Oral QD 07/08/19 Inactive pravastatin 80 mg tablet RxNorm: 853265 Take 1 Tablet(s) Oral QHS every night at bedtime 07/08/19 Inactive carbamazepine 200 mg tablet RxNorm: 111098 Take 1 Tablet(s) Oral BID 07/08/19 Inactive clopidogrel 75 mg tablet RxNorm: 178535 Take 1 Tablet(s) Oral QD 07/08/19 Inactive Blood Glucose Test strips RxNorm: Use 1 Test Strip QID at PRN 07/08/19 Inactive E11.42 Novolog Flexpen U-100 Insulin aspart 100 unit/mL (3 mL) subcutaneous RxNorm: 6052378 Administer per sliding scale Milliliter(s) Subcutaneous TID 151-200: 10 u; 201-250: 20 u; 251-300: 30 u; 301-350: 40 u; 351-400: 50 u. 07/08/19 Inactive lisinopril 5 mg tablet RxNorm: 137977 Take 1 Tablet(s) Oral QD 07/08/19 Inactive Novolog Flexpen U-100 Insulin aspart 100 unit/mL (3 mL) subcutaneous RxNorm: 7190635 Inject 85 Unit(s) Subcutaneous TID 07/08/19 Inactive clotrimazole 1 % topical cream RxNorm: 013003 Apply to bilateral groin areas Topical BID 07/08/19 Inactive metoprolol succinate ER 200 mg tablet,extended release 24 hr RxNorm: 176223 Take 1 Tablet(s) Oral QD 07/08/19 Inactive Vitamin D3 25 mcg (1,000 unit) tablet RxNorm: 899272 Take 1 Tablet(s) Oral QD 07/08/19 Inactive isosorbide dinitrate 30 mg tablet RxNorm: 397193 Take 1 Tablet(s) Oral QD 07/08/19 21 021 Inactive Levemir FlexTouch U-100 Insulin 100 unit/mL (3 mL) subcutaneous pen RxNorm: 264242 Inject 140 Unit(s) Subcutaneous BID 07/08/19 21 021 Inactive torsemide 20 mg tablet RxNorm: 721510 Take 1 Tablet(s) Oral QD 07/08/19 21 023 Inactive venlafaxine 75 mg tablet RxNorm: 001981 Take 1 Tablet(s) Oral QD 07/08/19 021 Inactive acetaminophen 500 mg tablet RxNorm: 415412 Take 1 Tablet(s) Oral TID as needed for headache 06/18/19 Inactive acetaminophen 500 mg tablet RxNorm: 114877 Take 1 Tablet(s) Oral TID as needed for headache 06/18/19 021 Inactive Lyrica 100 mg capsule RxNorm: 025124 Take 1 Capsule(s) Oral QHS every night at bedtime 06/11/19 021 Inactive Lyrica 50 mg capsule RxNorm: 609620 Take 1 Capsule(s) Oral QAM every morning 06/10/19 21 021 Inactive hydrocortisone 2.5 % topical cream RxNorm: 996407 Apply to bilateral groin creases Topical BID 05/15/20 20 021 Inactive clotrimazole 1 % topical cream RxNorm: 157365 Apply to bilateral groin areas Topical BID 05/15/20 20 021 Inactive Lyrica 50 mg capsule RxNorm: 801144 Take 1 Capsule(s) Oral QAM every morning 05/14/20 20 020 Inactive Lyrica 100 mg capsule RxNorm: 270485 Take 1 Capsule(s) Oral QHS every night [...] Inactive Nystop 100,000 unit/gram topical powder RxNorm: 182423 Apply to abd folds, under breasts and L side of groin Topical BID x 14 days, then BID PRN 04/08/20 20 Inactive dx: yeast dermatitis Lyrica 100 mg capsule RxNorm: 685591 Take 1 Capsule(s) Oral QHS every night at bedtime 03/13/20 20 Inactive Lyrica 50 mg capsule RxNorm: 790470 Take 1 Capsule(s) Oral QAM every morning 03/13/20 20 Inactive ketoconazole 2 % shampoo RxNorm: 991908 Apply Topical two times a week with showers 03/11/20 20 Inactive cholecalciferol (vitamin D3) 50 mcg (2,000 unit) tablet RxNorm: 963676 Take 1 Tablet(s) Oral QD 03/11/20 20 Inactive Zetia 10 mg tablet RxNorm: 996635 Take 1 Tablet(s) Oral QD 03/07/20 20 021 Inactive Zetia 10 mg tablet RxNorm: 291511 Take 1 Tablet(s) Oral QD 03/07/20 20 Inactive Lyrica 50 mg capsule RxNorm: 468669 Take 1 Capsule(s) Oral QAM every morning 02/15/20 20 Inactive Lyrica 100 mg capsule RxNorm: 337211 Take 1 Capsule(s) Oral QHS every night at bedtime 02/15/20 20 Inactive Lyrica 100 mg capsule RxNorm: 764906 Take 1 Capsule(s) Oral QHS every night at bedtime 02/15/20 20 Inactive Lyrica 50 mg capsule RxNorm: 258584 Take 1 Capsule(s) Oral QAM every morning 02/15/20 20 Inactive polyethylene glycol 3350 17 gram/dose oral powder RxNorm: 863677 Take 17=1 capful Gram(s) Oral BID as needed mix with 4-8oz of liquid 06/12/2021 Activemetoprolol succinate ER 200 mg tablet,extended release 24 hrRxNorm: 405149 Take 1 Tablet(s) Oral QD08/11/2022ctiveloperamide 2 mg capsuleRxNorm: 257098 Take 1 Capsule(s) Oral QID as tamchp9506/12/2021ctivehydralazine 50 mg tablet RxNorm: 496400Kkei 1 Tablet(s) Oral QID08/11/2022ctivevenlafaxine ER 75 mg capsule,extended release 24 hrRxNorm: 056318Otvs 3 Capsule(s) Oral QD06/12/2021 02/01/2023Inactiveicosapent ethyl 1 gram capsuleRxNorm: 5021073Jwwi 2 Capsule(s) (2 gm) Oral BID with meals/InactiveOkay to dispense one 2gm tab if you have that available.Levemir FlexTouch U-100 Insulin 100 unit/mL (3 mL) subcutaneous penRxNorm: 339666Fyskey 80 Unit(s) Subcutaneous BID07/14/2022 07/12/2022InactiveNovolog Flexpen U-100 Insulin aspart 100 unit/mL (3 mL) subcutaneousRxNorm: 8548967Msukld 30 Unit(s) Subcutaneous TID with meals /Inactive Medication Administered No Medication Administered data Immunizations [...] [facility] WPtel: [address], [address] [id number] USReferralRecords [id number]/08/2023Referral: [facility] WPtel: [address] [id number]/12/2022Referral: General CardiologyReferralCompleted 1Referral: General PsychologistReferralClosed Instructions Comment Date Leonid is a Male being seen living at [facility]. Initial [facility] visit 01/2020. PMHx including DMII, CAD w/ 5 stents, Depression, Seizure Disorder and CKD stage 3. He moved into [facility] in 12/2019 but after a hospitalization 05/2021 [facility] attention. Sister Jyotsna involved in his care cell# [phone] Guardian: Don (tapan met in person 09/01/21), now has Lexii (same group as don)Lab Schedule: * 02/08/2023
--- OUTSIDE RECORDS SUMMARY | 2023-02-18 18:13 | XMS_ITS | CCD ---
Author Name Chelo Fonseca PA-C Address [address] [place] [address] Phone Organization [facility] Phone Care Team Providers Care Lab Pack Chemist Name Role Phone Chelo Fonseca PA-C Primary Care Provider Unavaila ble Chelo Fonseca PA-C Chronic Care Management Unavai labcal Summary Purpose DataExchange Insurance Providers Payer name Policy type / Coverage type Covered green party ID Effective Begin Date Effective End Date [place] Part B [id number] Unknown Unknown [place] B [id number] Unknown Unknown Family history Sister Brittany Suggs [...] Unknown Mcfp 09/03/[address]: 9042887 Non-Smoker / No History of Smoking 09/02/[address]: 509618559 No Alcohol Consum ption 09/02/2020 Allergies, Adverse Reactions, Alerts Substance Reaction Codes Entered Date Inactivated Date Status LISINOPRIL RxNorm: 6511680No Inactive DateActiveMetformin SRdNpfhtgg44/28/2020No Inactive DateActive Problems Condition Codes Effective Dates Condition St atus Annual physical exam ICD-10: Z00.00 ICD-9: V70.009/ctiveCoronary artery disease involving pechanga coronary artery of pechanga heart, angina presence unspecifiedICD-10: I25.10 ICD-9: 414.0109/ctiveEncounter for other specified special examinations ICD-10: Z01.89 ICD-9: V72.8509/ctiveEncounter for screening for nutritional disorder ICD-10: Z13.21 ICD-9: V77.9909/ctiveHyperlipidemia associated with type 2 diabetes mellitusICD-10: E11.69 ICD-9: 250.8009/ctiveOther long goods drier (current) drug therapyICD-10: Z79.899 ICD-9: V58.6909/ctiveStage 2 [...] ICD-9: 289.8109ctivePVD (peripheral vascular disease)ICD-10: I73.9 ICD-9: 443.909/2ActiveDepressionICD-10: F32.9 ICD-9: 34123/esolvedDVT (deep venous thrombosis)ICD-10: I82.409 ICD-9: 453.4009/esolvedEncounter for immunizationICD-10: Z23 ICD-9: V03.8909/esolvedLong term (current) use of insulinICD-10: Z79.4 09esolvedMuscular painICD-10: M79.10 ICD-9: 729.109/esolvedDandruff in adultICD-10: L21.0 ICD-9: 690.1808ctiveHypertension associated with diabetesICD-10: E11.59 ICD-9: 250.8008/2ResolvedHistory of anemia due to CKDICD-10: N18.9 ICD-9: 585.907/2ActiveStage 2 chronic kidney diseaseICD-10: N18.2 ICD-9: 585.207/2ActiveGout due to renal impairmentICD-10: M10.30 ICD-9: 274.1006ctiveLearning disabilityICD-10: F81.9 ICD-9: 315.212ctiveSkin tagICD-10: L91.8 ICD-9: 701.911/ctiveCallus of heelICD-10: L84 ICD-9: 27245ctiveImpacted cerumen, left earICD-10: H61.22 ICD-9: 380.408/ctiveContact with and (suspected) exposure to covid-19 ICD-10: Z20.822 ICD-9: V01.7908esolvedOther infective acute otitis externa of left ear ICD-10: H60.392 ICD-9: 380.1008esolvedScrotal skin lesionICD-10: N50.9 ICD-9: 608.908esolvedAnemia due to stage 3b chronic kidney diseaseICD- 10: N18.32 ICD-9: 285.2105esolvedChronic kidney disease, stage 3 unspecifiedICD- 10: N18.3004esolvedContact with and (suspected) exposure to other viral communicable diseasesICD-10: Z20.828 ICD-9: V01.7902esolvedHyperhidrosis of palmsICD-10: L74.512 ICD-9: 705.9641EqikjwRnzedqajNwdxrns26/28/2020ActiveDiabetes mellitus Type 6Wdgfrob44/28/2020ActiveAnemia in chronic kidney diseaseICD-10: D63.1 02/12/2020ResolvedHyperlipidemia, unspecifiedICD-10: E78.Resolved Medications Medication Codes Instructions Start Date Stop Date Status Fill Instructions fluconazole 150 mg tablet RxNorm: 182739 Take 1 Tablet(s) Oral on day 3 and on day 6 02/03/20 23 024 Active chlorthalidone 25 mg tablet RxNorm: 973292 Take 1 Tablet(s) Oral QAM every morning 02/03/20 No Stop Date Active venlafaxine ER 150 mg capsule,extended release 24 hr RxNorm: 950168 Take 1 Capsule(s) Oral QD 02/03/20 023 Inactive acetaminophen 500 mg tablet RxNorm: 156579 1 TABLET ORALLY 3 TIMES DAILY (MAX APAP:4GM/24HR) 12/15/19 23 024 Active potassium chloride ER 20 mEq tablet,extended release RxNorm: 500674 Take 1 Tablet(s) Oral BID 12/09/19 23 023 Active d/c 20mEq once daily (sent from hospital) clotrimazole 1 % topical cream RxNorm: 106107 apply 1g topically to top of feet and in between toes BID 12/09/19 23 023 Active nystatin 100,000 unit/gram topical powder RxNorm: 173761 APPLY TO AFFECTED AREAS TOPICALLY 2 TIMES DAILY 11/21/19 23 024 Active Nystop 100,000 unit/gram topical powder RxNorm: 574039 Apply to abd folds, under breasts and L side of groin Topical BID x 14 days, then BID PRN 11/20/19 23 023 Inactive dx: yeast dermatitis [place] Ultra Strength 4 %-30 %-10 % topical cream RxNorm: 825532 Apply 1 Gram(s) Topical QID PRN to feet and legs for neuropathic pain 11/11/19 23 024 Active hydrocortisone 2.5 % topical cream RxNorm: 562606 Apply 1/2 Gram(s) Topical BID as needed 11/10/19 23 No Stop Date Active clotrimazole 1 % topical cream RxNorm: 031118 Apply 1/2 Gram(s) Topical BID Apply to affected areas of groin, periarea, and abdominal topically 2 times daily 11/10/19 023 Inactive Levemir FlexPen 100 unit/mL (3 mL) solution subcutaneous insulin pen RxNorm: 631494 Inject 30 Unit(s) Subcutaneous BID 10/07/19 024 Active Humulin R U-500 (Concentrated) Insulin 500 unit/mL subcutaneous soln RxNorm: 786814 Inject 100 Unit(s) Subcutaneous TID 10/07/19 024 Active Ozempic 0.25 mg or 0.5 mg (2 mg/3 mL) subcutaneous pen injector RxNorm: 8237398 Inject 1/2 Milligram(s) Subcutaneous QW once a week 10/07/19 024 Active aripiprazole 15 mg tablet RxNorm: 575731 1/2 TAB (7.5MG) ORALLY DAILY (DX:MAJOR DEPRESSIVE DISORDER) 09/23/19 023 Active Accu-Chek Guide test strips RxNorm: Use 1 Test Strip QID 09/15/19 23 024 Active ok to substitute with any covered alternative test strip Lancets,Thin 28 gauge RxNorm: Use 1 as directed QID 09/15/19 23 024 Active torsemide 20 mg tablet RxNorm: 840933 Take 1 Tablet(s) Oral BID 09/09/19 024 Active d/c once daily dosing carvedilol 25 mg tablet RxNorm: 087457 Take 1 Tablet(s) Oral QD 08/25/19 23 024 Active pregabalin 150 mg capsule RxNorm: 930608 1 Capsule(s) Oral HS at bed time 08/18/19 023 Inactive pregabalin 100 mg capsule RxNorm: 595170 1 Capsule(s) Oral QAM every morning 08/18/19 023 Inactive carvedilol 25 mg tablet RxNorm: 927303 1 Tablet(s) Oral QD 07/28/19 023 Inactive lisinopril 20 mg tablet RxNorm: 957787 Give 1 Tablet(s) Oral QD 07/28/19 23 023 Inactive Lyrica 150 mg capsule RxNorm: 845272 Take 1 Capsule(s) Oral QHS every night at bedtime 07/19/19 23 023 Inactive d/c 100mg dose Diflucan 150 mg tablet RxNorm: 986873 Take 1 Tablet(s) Oral QD repeat on day 3 and 6 07/19/19 23 023 Inactive pregabalin 100 mg capsule RxNorm: 512747 Take 1 Capsule(s) Oral QAM every morning 07/19/19 023 Inactive gatifloxacin 0.5 % eye drops RxNorm: 568771 Instill 1 Drop(s) as directed TID Instill 1 drop in to affected eye(s) starting 1 day prior to surgery and continue until gone (do not exceed 4 weeks). 07/13/19 23 023 Inactive carvedilol 25 mg tablet RxNorm: 577088 2 Tablet(s) Oral BID 07/13/19 023 Inactive Humulin R Regular U-100 Insulin 100 unit/mL injection solution RxNorm: 286749 85 Unit(s) Injection TID 07/13/19 23 023 Inactive ketorolac 0.5 % eye drops RxNorm: 810140 Instill 1 Drop(s) as directed QID Instill 1 drop into affected eye(s) 4 times daily starting 1 day prior to surgery and continue until gone (do not exceed 4 weeks). 07/13/19 23 023 Inactive Diflucan 150 mg tablet RxNorm: 814855 Take 1 Tablet(s) Oral QD repeat on day 3 and 6 06/30/19 23 023 Inactive Accu-Chek Guide test strips RxNorm: Use 1 Test Strip QID Use 1 test strip to monitor blood glucose 4 times daily and as needed. Dx:E11.42. 06/23/19 23 023 Inactive ok to substitute with any covered alternative test strip dextromethorphan-gu aifenesin 10 mg-100 mg/5 mL oral liquid RxNorm: 708269 Take 10 Milliliter(s) Oral every 4 hours as needed for cough 06/19/19 023 Inactive dextromethorphan-gu aifenesin 10 mg-100 mg/5 mL oral liquid RxNorm: 019911 Take 10 Milliliter(s) Oral every 4 hours as needed for cough 06/19/19 023 Inactive Lyrica 150 mg capsule RxNorm: 545670 Take 1 Capsule(s) Oral QHS every night at bedtime 06/18/19 023 Inactive d/c 100mg dose aripiprazole 15 mg tablet RxNorm: 742683 / TAB (7.5MG) ORALLY DAILY (DX:MAJOR DEPRESSIVE DISORDER) 06/05/19 023 Inactive pregabalin 100 mg capsule RxNorm: 956965 1 Capsule(s) Oral QAM every morning 06/02/19 023 Inactive Banophen 50 mg capsule RxNorm: 1478302 Take 1 Capsule(s) Oral Q6H every 6 hours as needed 05/19/19 23 No Stop Date Active Novolog Flexpen U-100 Insulin aspart 100 unit/mL (3 mL) subcutaneous RxNorm: 7928178 Inject 10 Unit(s) Subcutaneous QHS every night at bedtime with nighttime snack 04/08/20 022 Inactive Novolog Flexpen U-100 Insulin aspart 100 unit/mL (3 mL) subcutaneous RxNorm: 2491983 Inject 42 Unit(s) Subcutaneous TID in addition to sliding scale 04/08/20 022 Inactive d/c 36u albuterol sulfate HFA 90 mcg/actuation aerosol inhaler RxNorm: 2250111 Take 2 Puff(s) Inhalation Q4H every four hours as needed as needed for SOB, cough, or wheezing 04/07/20 030 Active Banophen 50 mg capsule RxNorm: 3791476 Take 1 Capsule(s) Oral Q6H every 6 hours as needed 04/06/20 023 Inactive diphenhydramine 50 mg tablet RxNorm: 1957981 Take 1 Tablet(s) Oral Q6H every 6 hours as needed 04/06/20 22 022 Inactive diphenhydramine 50 mg tablet RxNorm: 9897097 1 Tablet(s) Oral Q6H every 6 hours as needed 04/06/20 22 022 Inactive Abilify 15 mg tablet RxNorm: 102990 1/2 Tablet(s) Oral QD 03/10/20 22 023 Inactive Shingrix (PF) 50 mcg/0.5 mL intramuscular suspension, kit RxNorm: 0834983 Administer 1/2 Milliliter(s) Intramuscular QD one time shingrix step 2 ( step 1 given 11/04/21) WITH needle - Nursing please administer upon arrival and once administered post a bridge message with date of administration, practice representative, expiration date, and lot# so we can update [facility] 02/18/20 22 022 Inactive dispense with needle Shingrix (PF) 50 mcg/0.5 mL intramuscular suspension, kit RxNorm: 4775249 Administer 1/2 Milliliter(s) Intramuscular QD one time shingrix step 2 ( step 1 given 11/04/21) WITH needle - Nursing please administer upon arrival and once administered post a bridge message with date of administration, practice representative, expiration date, and lot# so we can update [facility] 02/18/20 22 022 Inactive dispense with needle polyethylene glycol 3350 17 gram/dose oral powder RxNorm: 611894 Take 17=1 capful Gram(s) Oral QD mix with 4-8oz of liquid 01/08/20 22 023 Inactive take this in addition to BID prn order Lyrica 100 mg capsule RxNorm: 842811 Take 1 Capsule(s) Oral QAM every morning 01/08/20 22 022 Inactive d/c 50mg dose acetaminophen 500 mg tablet RxNorm: 239196 Take 1 Tablet(s) Oral TID 01/08/20 22 022 Inactive d/c PRN order Lyrica 150 mg capsule RxNorm: 744700 Take 1 Capsule(s) Oral QHS every night at bedtime 01/08/20 22 023 Inactive d/c 100mg dose Abilify 5 mg tablet RxNorm: 416842 Take 1 Tablet(s) Oral QD take 1 tab po QD #30 refill 5 dx: MDD 07/28/20 22 022 Inactive Abilify 5 mg tablet RxNorm: 853910 Take 1 Tablet(s) Oral QD take 1 tab po QD #30 refill 5 dx: MDD 12/12/19 22 022 Inactive Novolog Flexpen U-100 Insulin aspart 100 unit/mL (3 mL) subcutaneous RxNorm: 7286938 Inject 42 Unit(s) Subcutaneous TID in addition to sliding scale 12/10/19 22 Inactive d/c 36u chlorthalidone 25 mg tablet RxNorm: 324820 Take 1 Tablet(s) Oral QAM every morning 12/10/19 22 023 Inactive pregabalin 50 mg capsule RxNorm: 391842 Take 1 Capsule(s) Oral QAM every morning 11/12/19 22 Inactive tetanus-diphtheria toxoids-Td 2 Lf unit-2 Lf unit/0.5 mL IM suspension RxNorm: 139 Take 0.5 Miscellaneous Intramuscular 11/12/19 22 022 Inactive need tdap - nursing to administer upon arrival pregabalin 50 mg capsule RxNorm: 502123 Take 1 Capsule(s) Oral QAM every morning 10/16/19 22 022 Inactive pregabalin 50 mg capsule RxNorm: 959582 Take 1 Capsule(s) Oral QAM every morning 10/16/19 22 022 Inactive pregabalin 50 mg capsule RxNorm: 101250 1 Capsule(s) Oral QAM every morning 10/15/19 22 022 Inactive Shingrix (PF) 50 mcg/0.5 mL intramuscular suspension, kit RxNorm: 8801465 Administer 1/2 Milliliter(s) Intramuscular one time Nursing please administer upon arrival and once administered post a bridge message with date of administration, practice representative, expiration date, and lot# so we can update [facility]. 10/09/19 22 022 Inactive shingrix step 1 Shingrix (PF) 50 mcg/0.5 mL intramuscular suspension, kit RxNorm: 3126652 Administer 1/2 Milliliter(s) Intramuscular one time Nursing please administer upon arrival and once administered post a bridge message with date of administration, practice representative, expiration date, and lot# so we can update [facility]. 10/09/19 22 Inactive shingrix step 1 cholecalciferol (vitamin D3) 1,250 mcg (50,000 unit) capsule RxNorm: 954357 Take 1 Capsule(s) Oral QW once a [...] aspart 100 unit/mL (3 mL) subcutaneous RxNorm: 6356516 Inject 10 Unit(s) Subcutaneous QHS every night at bedtime with nighttime snack 10/08/19 22 Inactive Shingrix (PF) 50 mcg/0.5 mL intramuscular suspension, kit RxNorm: 9520080 ADMINISTER 2-DOSE SERIES PER CDC GUIDELINES 10/08/19 22 Active Shingrix (PF) 50 mcg/0.5 mL intramuscular suspension, kit RxNorm: 4821017 ADMINISTER 2-DOSE SERIES PER CDC GUIDELINES 10/08/19 22 Inactive Novolog Flexpen U-100 Insulin aspart 100 unit/mL (3 mL) subcutaneous RxNorm: 7771137 Inject 36 Unit(s) Subcutaneous TID in addition to sliding scale 10/08/19 22 Inactive Novofine Autocover 30 gauge x 1/3 needle RxNorm: Use 1 Miscellaneous UD as directed Use 1 needle as directed to administer insulin 5 times a day Dx:E11.42. 10/03/19 22 Inactive ok to substitute with any covered alternative pen needle benzoyl peroxide 10 % topical cleanser RxNorm: 872783 Apply 1 Application Topical QD apply to face, wash rinse and dry once daily (may change to QOD if drying) 08/19/19 22 022 Inactive (%covered by insurance) #60ml refill 11 dx: acne benzoyl peroxide 10 % topical cleanser RxNorm: 515947 Apply 1 Application Topical QD apply to face, wash rinse and dry once daily (may change to QOD if drying) 08/19/19 22 022 Inactive (%covered by insurance) #60ml refill 11 dx: acne benzoyl peroxide 10 % topical cleanser RxNorm: 605727 Apply 1 Application Topical QD apply to face, wash rinse and dry once daily (may change to QOD if drying) 08/19/19 22 022 Inactive (%covered by insurance) #60ml refill 11 dx: acne Lyrica 50 mg capsule RxNorm: 483938 Take 1 Capsule(s) Oral QAM every morning Take 1 capsule by mouth once daily 08/19/19 022 Inactive benzoyl peroxide 10 % topical cleanser RxNorm: 702464 Apply 1 Application Topical QD apply to face, wash rinse and dry once daily (may change to QOD if drying) 08/19/19 22 022 Inactive (%covered by insurance) #60ml refill 11 dx: acne Lyrica 100 mg capsule RxNorm: 338257 Take 1 Capsule(s) Oral QHS every night at bedtime Take 1 capsule by mouth once daily at bedtime 08/19/19 22 022 Inactive Lyrica 100 mg capsule RxNorm: 205927 Take 1 Capsule(s) Oral QHS every night at bedtime Take 1 capsule by mouth once daily at bedtime 08/16/19 022 Inactive Lyrica 50 mg capsule RxNorm: 969461 Take 1 Capsule(s) Oral QAM every morning Take 1 capsule by mouth once daily 08/16/19 022 Inactive Levemir FlexTouch U-100 Insulin 100 unit/mL (3 mL) subcutaneous pen RxNorm: 198352 Inject 86 Unit(s) Subcutaneous BID 08/05/19 22 022 Inactive d/c 83units BID Lyrica 100 mg capsule RxNorm: 628988 Take 1 Capsule(s) Oral QHS every night at bedtime Take 1 capsule by mouth once daily at bedtime 07/14/19 22 Inactive Lyrica 50 mg capsule RxNorm: 362906 Take 1 Capsule(s) Oral QAM every morning Take 1 capsule by mouth once daily 07/14/19 22 Inactive Levemir FlexTouch U-100 Insulin 100 unit/mL (3 mL) subcutaneous pen RxNorm: 059249 Inject 83 Unit(s) Subcutaneous BID 07/08/19 22 [...] 30 mg tablet,extended release 24 hr RxNorm: 389930 Take 1 Tablet(s) Oral QD 05/05/20 No Stop Date Active hydralazine 50 mg tablet RxNorm: 927807 Take 1 Tablet(s) Oral QID 05/05/20 21 022 Inactive venlafaxine ER 225 mg tablet,extended release 24 hr RxNorm: 734592 Take 1 Tablet(s) Oral QD 05/05/20 Inactive venlafaxine ER 225 mg tablet,extended release 24 hr RxNorm: 682035 Take 1 Tablet(s) Oral QD 05/05/20 022 Inactive hydralazine 50 mg tablet RxNorm: 270871 Take 1 Tablet(s) Oral QID 05/05/20 Inactive aspirin 81 mg tablet,delayed release RxNorm: 278798 Take 1 Tablet(s) Oral QD 03/31/20 Inactive Zetia 10 mg tablet RxNorm: 636537 Take 1 Tablet(s) Oral QD 03/31/20 Inactive Vitamin D2 1,250 mcg (50,000 unit) capsule RxNorm: 5527502 Take 1 Capsule(s) Oral QW once a week x 12 weeks 03/31/20 Inactive Vitamin D2 1,250 mcg (50,000 unit) capsule RxNorm: 7347317 Take 1 Capsule(s) Oral QW once a week 03/31/20 Inactive Zetia 10 mg tablet RxNorm: 846818 Take 1 Tablet(s) Oral QD 03/31/20 Inactive hydralazine 25 mg tablet RxNorm: 558344 Take 1 Tablet(s) Oral QID 03/31/20 Inactive hydralazine 25 mg tablet RxNorm: 831540 Take 1 Tablet(s) Oral QID 03/31/20 Inactive hydralazine 10 mg tablet RxNorm: 405098 Take 1 Tablet(s) Oral QID 03/03/20 Inactive cephalexin 500 mg tablet RxNorm: 656077 Take 1 Tablet(s) Oral QID 02/27/20 21 021 Inactive cephalexin 500 mg tablet RxNorm: 063245 Take 1 Tablet(s) Oral QID 02/27/20 021 Inactive lisinopril 40 mg tablet RxNorm: 175805 Take 1 Tablet(s) Oral QD 02/11/20 023 Inactive Eliquis 5 mg tablet RxNorm: 4252845 Take 1 Tablet(s) Oral BID 01/05/20 21 022 Inactive Eliquis 5 mg tablet RxNorm: 5700452 Take 2 Tablet(s) Oral QD 01/01/20 21 021 Inactive Lyrica 50 mg capsule RxNorm: 044020 Take 1 Capsule(s) Oral QAM every morning 12/24/19 021 Inactive Lyrica 100 mg capsule RxNorm: 364147 Take 1 Capsule(s) Oral QHS every night at bedtime 12/24/19 21 021 Inactive clotrimazole 1 % topical cream RxNorm: 901545 Apply to right foot and toes Topical BID 12/04/19 21 023 Inactive metoprolol succinate ER 200 mg tablet,extended release 24 hr RxNorm: 331399 Take 1 Tablet(s) Oral QD 12/04/19 21 023 Inactive ciprofloxacin 500 mg tablet RxNorm: 683530 Take 1 Tablet(s) Oral QD 11/30/19 21 021 Inactive DX ofloxacin otic drops Accu-Chek Guide test strips RxNorm: USE 1 TO CHECK GLUCOSE 4 TIMES DAILY AND NEEDED 11/15/19 21 023 Inactive Blood Glucose Test strips RxNorm: Use 1 Test Strip QID at PRN 11/05/19 21 023 Inactive E11.42 lisinopril 30 mg tablet RxNorm: 164397 Take 1 Tablet(s) Oral QD 10/30/19 21 021 Inactive lisinopril 20 mg tablet RxNorm: 238899 Take 1 Tablet(s) Oral QD 10/23/19 21 021 Inactive lisinopril 20 mg tablet RxNorm: 828455 Take 1 Tablet(s) Oral QD 10/23/19 21 021 Inactive lisinopril 10 mg tablet RxNorm: 454892 Take 1 Tablet(s) Oral QD 10/02/19 021 Inactive icosapent ethyl 1 gram capsule RxNorm: 9507585 Take 2 Capsule(s) (2 gm) Oral BID with meals 09/12/19 022 Inactive Okay to dispense one 2gm tab if you have that available. icosapent ethyl 1 gram capsule RxNorm: 0154943 Take 2 Capsule(s) Oral BID 09/12/19 21 021 Inactive Okay to dispense one 2gm tab if you have that available. amlodipine 10 mg tablet RxNorm: 557491 Take 1 Tablet(s) Oral QD 09/04/19 Inactive aspirin 81 mg tablet,delayed release RxNorm: 170443 Take 1 Tablet(s) Oral QD 09/04/19 Inactive Levemir FlexTouch U-100 Insulin 100 unit/mL (3 mL) subcutaneous pen RxNorm: 994311 Inject 150 Unit(s) Subcutaneous BID 09/04/19 Inactive venlafaxine ER 150 mg tablet,extended release 24 hr RxNorm: 260179 Take 1 Tablet(s) Oral QD 09/04/19 021 Inactive clotrimazole-betame thasone 1 %-0.05 % topical cream RxNorm: 862942 Apply to rash on red area on left abdomen/chest Topical BID 08/10/19 21 021 Inactive amlodipine 5 mg tablet RxNorm: 852676 Take 1 Tablet(s) Oral QD 07/31/19 21 Inactive cephalexin 500 mg tablet RxNorm: 773781 Take 1 Tablet(s) Oral BID BID - Twice Daily 07/31/19 21 021 Inactive Start 08/01/20 pantoprazole 40 mg tablet,delayed release RxNorm: 342366 Take 1 Tablet(s) Oral QAM every morning 07/08/19 21 022 Inactive senna 8.6 mg tablet RxNorm: 040291 Take 1 Tablet(s) Oral QD 07/08/19 21 022 Inactive pravastatin 80 mg tablet RxNorm: 792381 Take 1 Tablet(s) Oral QHS every night at bedtime 07/08/19 21 Inactive carbamazepine 200 mg tablet RxNorm: 054843 Take 1 Tablet(s) Oral BID 07/08/19 21 022 Inactive clopidogrel 75 mg tablet RxNorm: 758008 Take 1 Tablet(s) Oral QD 07/08/19 21 021 Inactive Blood Glucose Test strips RxNorm: Use 1 Test Strip QID at PRN 07/08/19 21 Inactive E11.42 Novolog Flexpen U-100 Insulin aspart 100 unit/mL (3 mL) subcutaneous RxNorm: 2800278 Administer per sliding scale Milliliter(s) Subcutaneous TID 151-200: 10 u; 201-250: 20 u; 251-300: 30 u; 301-350: 40 u; 351-400: 50 u. 07/08/19 21 022 Inactive lisinopril 5 mg tablet RxNorm: 911808 Take 1 Tablet(s) Oral QD 07/08/19 Inactive Novolog Flexpen U-100 Insulin aspart 100 unit/mL (3 mL) subcutaneous RxNorm: 9722723 Inject 85 Unit(s) Subcutaneous TID 07/08/19 Inactive clotrimazole 1 % topical cream RxNorm: 845519 Apply to bilateral groin areas Topical BID 07/08/19 21 Inactive metoprolol succinate ER 200 mg tablet,extended release 24 hr RxNorm: 387073 Take 1 Tablet(s) Oral QD 07/08/19 21 Inactive Vitamin D3 25 mcg (1,000 unit) tablet RxNorm: 175467 Take 1 Tablet(s) Oral QD 07/08/19 21 Inactive isosorbide dinitrate 30 mg tablet RxNorm: 422402 Take 1 Tablet(s) Oral QD 07/08/19 21 021 Inactive Levemir FlexTouch U-100 Insulin 100 unit/mL (3 mL) subcutaneous pen RxNorm: 249805 Inject 140 Unit(s) Subcutaneous BID 07/08/19 21 021 Inactive torsemide 20 mg tablet RxNorm: 397479 Take 1 Tablet(s) Oral QD 07/08/19 21 023 Inactive venlafaxine 75 mg tablet RxNorm: 830520 Take 1 Tablet(s) Oral QD 07/08/19 21 021 Inactive acetaminophen 500 mg tablet RxNorm: 892965 Take 1 Tablet(s) Oral TID as needed for headache 06/18/19 21 021 Inactive acetaminophen 500 mg tablet RxNorm: 731767 Take 1 Tablet(s) Oral TID as needed for headache 06/18/19 21 021 Inactive Lyrica 100 mg capsule RxNorm: 646384 Take 1 Capsule(s) Oral QHS every night at bedtime 06/11/19 21 021 Inactive Lyrica 50 mg capsule RxNorm: 418845 Take 1 Capsule(s) Oral QAM every morning 06/10/19 21 021 Inactive hydrocortisone 2.5 % topical cream RxNorm: 575492 Apply to bilateral groin creases Topical BID 05/15/20 20 021 Inactive clotrimazole 1 % topical cream RxNorm: 910559 Apply to bilateral groin areas Topical BID 05/15/20 20 021 Inactive Lyrica 50 mg capsule RxNorm: 678015 Take 1 Capsule(s) Oral QAM every morning 05/14/20 20 020 Inactive Lyrica 100 mg capsule RxNorm: 470540 Take 1 Capsule(s) Oral QHS every night [...] Inactive Nystop 100,000 unit/gram topical powder RxNorm: 704311 Apply to abd folds, under breasts and L side of groin Topical BID x 14 days, then BID PRN 04/08/20 20 Inactive dx: yeast dermatitis Lyrica 100 mg capsule RxNorm: 071883 Take 1 Capsule(s) Oral QHS every night at bedtime 03/13/20 20 Inactive Lyrica 50 mg capsule RxNorm: 455971 Take 1 Capsule(s) Oral QAM every morning 03/13/20 20 Inactive ketoconazole 2 % shampoo RxNorm: 461345 Apply Topical two times a week with showers 03/11/20 20 Inactive cholecalciferol (vitamin D3) 50 mcg (2,000 unit) tablet RxNorm: 136164 Take 1 Tablet(s) Oral QD 03/11/20 20 Inactive Zetia 10 mg tablet RxNorm: 737254 Take 1 Tablet(s) Oral QD 03/07/20 20 021 Inactive Zetia 10 mg tablet RxNorm: 107263 Take 1 Tablet(s) Oral QD 03/07/20 20 Inactive Lyrica 50 mg capsule RxNorm: 027050 Take 1 Capsule(s) Oral QAM every morning 02/15/20 20 Inactive Lyrica 100 mg capsule RxNorm: 822103 Take 1 Capsule(s) Oral QHS every night at bedtime 02/15/20 20 Inactive Lyrica 100 mg capsule RxNorm: 665904 Take 1 Capsule(s) Oral QHS every night at bedtime 02/15/20 20 Inactive Lyrica 50 mg capsule RxNorm: 321793 Take 1 Capsule(s) Oral QAM every morning 02/15/20 20 020 Inactive polyethylene glycol 3350 17 gram/dose oral powder RxNorm: 655379 Take 17=1 capful Gram(s) Oral BID as needed mix with 4-8oz of liquid 06/12/2021 Activemetoprolol succinate ER 200 mg tablet,extended release 24 hrRxNorm: 619100 Take 1 Tablet(s) Oral QD08/11/2022ctiveloperamide 2 mg capsuleRxNorm: 325613 Take 1 Capsule(s) Oral QID as [id number]/12/2021ctivehydralazine 50 mg tablet RxNorm: 444001Mwtt 1 Tablet(s) Oral QID08/11/2022ctivevenlafaxine ER 75 mg capsule,extended release 24 hrRxNorm: 154728Qsmz 3 Capsule(s) Oral QD06/12/2021 02/01/2023Inactiveicosapent ethyl 1 gram capsuleRxNorm: [id number] 2 Capsule(s) (2 gm) Oral BID with mealsInactiveOkay to dispense one 2gm tab if you have that available.Levemir FlexTouch U-100 Insulin 100 unit/mL (3 mL) subcutaneous penRxNorm: 515612Jqnhft 80 Unit(s) Subcutaneous BID07/14/2022 07/12/2022InactiveNovolog Flexpen U-100 Insulin aspart 100 unit/mL (3 mL) subcutaneousRxNorm: [id number] 30 Unit(s) Subcutaneous TID with meals Inactive Medication Administered No Medication Administered data [...] Item Item Code Result Date Service Location Complete Metabolic Panel (CMP) CMP A/G Ratio 1.7 023 Unknown Complete Metabolic Panel (CMP) CMP Albumin 1751-7 3.8 g/dL 023 Unknown Complete Metabolic Panel (CMP) CMP Alkaline Phosphatase 129 U/L 023 Unknown Complete Metabolic Panel (CMP) CMP ALT (SGPT) 32 U/L 023 Unknown Complete Metabolic Panel (CMP) CMP AST (SGOT) 29.0 U/L 023 Unknown Complete Metabolic Panel (CMP) CMP BILIRUBIN, TOTAL 1975-2 0.2 mg/dL 023 Unknown Complete Metabolic Panel (CMP) CMP Blood Urea Nitrogen (BUN) 28 mg/dL 023 Unknown Complete Metabolic Panel (CMP) CMP BUN/CREATININE RATIO 21.37 ratio 023 Unknown Complete Metabolic Panel (CMP) CMP Calcium (Ca) 76019-2 8.7 mg/dL 023 Unknown Complete Metabolic Panel (CMP) CMP Carbon Dioxide (ECO2) 28 mmol/L 023 Unknown Complete Metabolic Panel (CMP) CMP Chloride (Cl) 2075-0 97 mmol/L 023 Unknown Complete Metabolic Panel (CMP) CMP Creatinine 2160-0 1.31 mg/dL 023 Unknown Complete Metabolic Panel (CMP) CMP eGFR 61.16 mL/min/1.73m 2 023 Unknown Complete Metabolic Panel (CMP) CMP Globulin, Total 2.3 023 Unknown Complete Metabolic Panel (CMP) CMP Glucose 467 mg/dL 023 Unknown Complete Metabolic Panel (CMP) CMP Potassium (K) 2823-3 3.5 mmol/L 023 Unknown Complete Metabolic Panel (CMP) CMP PROTEIN, TOTAL 2885-2 6.1 g/dL 023 Unknown Complete Metabolic Panel (CMP) CMP Sodium (Na) 2951-2 137 mmol/L 023 Unknown Lipid Panel with Reflex to LDL, Direct LPDPANREFL Non HDL Cholesterol 219.2 mg/dL 023 Unknown Hemoglobin A1c HEMOGLOBA Hemoglobin A1c 39593-6 10.8 %A1c 023 Unknown Prostat Specific Antigen (PSA), Total PSA Prostate Specific Antigen (PSA), Total 58226-4 0.20 ng/mL 023 Unknown Vitamin D, 25-Hydroxy VITAD25 Vitamin D, 25-Hydroxy 57275-1 26 ng/mL 023 Unknown CBC with Differential / Platelets CBCDIFF Baso (Absolute) 0.04 x10E3/uL 023 Unknown CBC with Differential / Platelets CBCDIFF Basos 0.80 % 023 Unknown CBC with Differential / Platelets CBCDIFF Eos 4.0 % 023 Unknown CBC with Differential / Platelets CBCDIFF Eos (Absolute) 0.19 x10E3/uL 023 Unknown CBC with Differential / Platelets CBCDIFF Hematocrit 4544-3 38.5 % 023 Unknown CBC with Differential / Platelets CBCDIFF Hemoglobin 718-7 12.4 g/dL 023 Unknown CBC with Differential / Platelets CBCDIFF LYMPHOCYTES 33.6 % 023 Unknown CBC with Differential / Platelets CBCDIFF Lymphocytes (Absolute) 1.61 x10E3/uL 023 Unknown CBC with Differential / Platelets CBCDIFF MCH 29.6 pg 023 Unknown CBC with Differential / Platelets CBCDIFF MCHC 32.2 g/dL 023 Unknown CBC with Differential / Platelets CBCDIFF MCV 787-2 91.9 % 023 Unknown CBC with Differential / Platelets CBCDIFF Monocytes 7.3 % 023 Unknown CBC with Differential / Platelets CBCDIFF Monocytes (Absolute) 0.35 x10E3/uL 023 Unknown CBC with Differential / Platelets CBCDIFF MPV 65597-2 9.8 fL 023 Unknown CBC with Differential / Platelets CBCDIFF Neutrophils 54.10 % 023 Unknown CBC with Differential / Platelets CBCDIFF Neutrophils (Absolute) 2.59 x10E3/uL 023 Unknown CBC with Differential / Platelets CBCDIFF Platelets 777-3 158 x10E3/uL 023 Unknown CBC with Differential / Platelets CBCDIFF RBC 4.19 x10^6/UL 023 Unknown CBC with Differential / Platelets CBCDIFF RDW 15.6 %binding 023 Unknown CBC with Differential / Platelets CBCDIFF WBC 6690-2 4.79 x10E3/uL 023 Unknown Lipid Panel (LP) LIPIDPAN CHOLESTEROL, TOTAL 02085-4 244 mg/dL 023 Unknown Lipid Panel (LP) LIPIDPAN HDL CHOLESTEROL 2085-9 24.8 mg /dL 023 Unknown Lipid Panel (LP) LIPIDPAN TRIGLYCERIDES 2571-8 1637 mg/d L 023 Unknown Lipid Panel (LP) LIPIDPAN VLDL Cholestero l Calculated 327 023 Unknown PDFReport PDFReport PDFReport 023 Unknown SLUMS SLUMS 86622-5 not completed 023 Unknown PHQ9 PHQ9 66170-1 12 023 Unknown Procedures Procedure Codes Date SYS BP > OR = 140 CPT-4: G8753 02/02/2023 CUI BP LESS 90 CPT-4: G8754 02/02/2023 ADVNC CARE PLAN IN RCRD CPT-4: 1157F 02/03/20 23 FXNL STATUS ASSESSED CPT-4: 1170F 02/02/2023 AMNT PAIN NOTED NONE PRSNT CPT-4: 1126F 02/02 FALL RISK ASSESSMENT DOCD CPT-4: 3288F 2022 PPPS, SUBSEQ VISIT SNOMED CT: [id number] 246801 CPT-4: G380765OS CLIN DEPRES SCRN F/U DOCSNOMED CT: 63048852 CPT-4: F288593 Vital Signs Date Vital 02/02/2023 Blood Pressure 1: 159/80 Code: 8480-6 Heart Rate 1: 78 bpm Code: 8867-4 Height: 5'5 Code: 8302-2 Respiratory Rate: 16 bpm Temperature: 36.4 (C) / 97.5 (F) Weight: Code: 3141-9 Reason For Visit No Reason For Visit data Encounters Encounter Performer Location Location Address Codes Cristiano e ([address]) Home or Residence Vi sit Est Pt - Moderate Level, 40 mins Diagnosis: Other long goods drier (current) drug therapy[ICD10: Z79.899] Diagnosis: Encounter for other specified special examinations[ICD10: Z01.89] Diagnosis: Encounter for screening for nutritional disorder[ICD10: Z13.21] Diagnosis: Hyperlipidemia associated with type 2 diabetes mellitus[ICD10: E11.69] Diagnosis: Stage 2 chronic 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[ICD10: E11.22] Diagnosis: Type 2 diabetes mellitus with diabetic polyneuropathy, with long-term current use of insulin[ICD10: E11.42] Diagnosis: Annual physical exam[ICD10: Z00.00] Diagnosis: Coronary artery disease involving pechanga coronary artery of pechanga heart, angina presence unspecified[ICD10: I25.10]C[address]o [address] [place] [address] [address] [place] [id number]-5: [id number] Plan of Care Planned Activity Notes Codes Status Date Patient Education: Patient Medication Summary Otazpbozw45/19/2023atient Education: Influenza GgsdikjLyfnnjone07/19/2023 Appointment: Sandra Clark WPtel: [phone] [facility] Psych Follow Up12/09/2022ppointment: Tapan Shirley WPtel: [address] [phone] [facility]10/26/2022Referral: [facility] WPtel: [phone], [facility] 220 [id number] USReferralRecords Okkljjfy23/08/2023ppointment: Tapan Shirley WPtel: [address] [facility] [address] [id number] US/U008/11/2022ppointment: Tapan Shirley WPtel: [address] [facility] [address] [id number] USF/U007/14/2022ppointment: Tapan Shirley WPtel: [address] [facility] [address] [id number] USF/U02Referral: [facility] WPtel: [address] [facility] [address] [id number] HFNxlypawbFxdeznpdm53/12/2022Referral: General CardiologyReferralCompleted 01/03/2021eferral: General PsychologistReferralClosed Instructions Comment Date Leonid is a Male being seen living at [facility]. Initial BPS visit 01/2020. PMHx including DMII, CAD w/ 5 stents, Depression, Seizure Disorder and CKD stage 3. He moved into [facility] in 12/2019 but after a hospitalization 05/2021 he moved to the [facility] to have closer nursing attention. Sister Jyotsna involved in his care cell# [phone] Guardian: Don (tapan met in person 09/01/21), now has Lexii (same group as don)Lab Schedule: /September* 02/08/2023 Ischemic Heart Disease Angina stable. Continue close cardiology follow up.?? Diabetes Presents with no BG log to review. Requesting RNs fax to me.?? Lab order: CBC, BMP, A1c, Lipid panel Preventative Health Care Reviewed preventive health counseling, including: Regular exercise, Healthy diet/nutrition, Vision screening, Hearing screening Refusing CRC screening (both stool samples and colonoscopy) Labs: PSA and lipids .02/02/2023
--- OUTSIDE RECORDS SUMMARY | 2023-02-18 18:14 | XMS_ITS | CCD ---
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 [facility] Name Role Phone Chelo Fonseca PA-C Primary Care Provider Unavaila ble Chelo Fonseca PA-C Chronic Care Management Nicole archer Summary Purpose DataExchange Insurance Providers Payer name Policy type / Coverage type Covered green party ID Effective Begin Date Effective End Date [place] Medicare Part B [id number] Unknown Unknown [place] Medicare Part B [id number] Unknown Unknown Family history Sister Brittany Suggs [...] Intermediate 09/03/[address]: 9341170 Non-Smoker / No History of Smoking 09/02/[address]: 797773361 No Alcohol Consum ption 09/02/2020 Allergies, Adverse Reactions, Alerts Substance Reaction Codes Entered Date Inactivated Date Status LISINOPRIL RxNorm: 1603401No Inactive DateActiveMetformin [id number] Inactive DateActive Problems Condition Codes Effective Dates Condition St atus Annual physical exam ICD-10: Z00.00 ICD-9: V70.009/ctiveCoronary artery disease involving [place] coronary artery of [place] heart, angina presence unspecifiedICD-10: I25.10 ICD-9: 414.0109/ctiveEncounter for other specified special examinations ICD-10: Z01.89 ICD-9: V72.8509/ctiveEncounter for screening for nutritional disorder ICD-10: Z13.21 ICD-9: V77.9909/ctiveHyperlipidemia associated with type 2 diabetes mellitusICD-10: E11.69 ICD-9: 250.8009/ctiveOther senior care (current) drug therapyICD-10: Z79.899 ICD-9: V58.6909/ctiveStage 2 [...] vascular disease)ICD-10: I73.9 ICD-9: 443.909/ctiveDepressionICD-10: F32.9 ICD-9: 83958/esolvedDVT (deep venous thrombosis)ICD-10: I82.409 ICD-9: 453.4009/2ResolvedEncounter for [...] L91.8 ICD-9: 701.911/ctiveCallus of heelICD-10: L84 ICD-9: 57115ctiveImpacted cerumen, left earICD-10: H61.22 ICD-9: 380.408/ctiveContact with [...] Z20.828 ICD-9: V01.7902esolvedHyperhidrosis of palmsICD-10: L74.512 ICD-9: 705.5179DieswlLtlonbfgXzhmguf05/28/2020ActiveDiabetes mellitus Type 5Jmvdzrc62/28/2020ActiveAnemia in chronic kidney diseaseICD-10: D63.1 02/12/2020ResolvedHyperlipidemia, unspecifiedICD-10: E78.509Resolved Medications Medication Codes Instructions Start Date Stop Date Status Fill Instructions pregabalin 150 mg capsule RxNorm: 825688 Take 1 Capsule(s) Oral HS at bed time 02/19/20 23 023 Active pregabalin 100 mg capsule RxNorm: 459995 Take 1 Capsule(s) Oral QAM every morning 02/18/20 23 024 Active FreeStyle Chema 2 Sensor kit RxNorm: use as directed 02/04/20 23 024 Active venlafaxine ER 75 mg capsule,extended release 24 hr RxNorm: 672566 Take 3 Capsule(s) Oral QD 02/04/20 023 Inactive FreeStyle Chema 2 Sensor kit RxNorm: use as directed 02/04/20 23 023 Inactive fluconazole 150 mg tablet RxNorm: 903859 Take 1 Tablet(s) Oral on day 3 and on day 6 02/03/20 23 024 Active chlorthalidone 25 mg tablet RxNorm: 323773 Take 1 Tablet(s) Oral QAM every morning 02/03/20 No Stop Date Active venlafaxine ER 150 mg capsule,extended release 24 hr RxNorm: 393173 Take 1 Capsule(s) Oral QD 02/03/20 23 023 Inactive acetaminophen 500 mg tablet RxNorm: 536506 1 TABLET ORALLY 3 TIMES DAILY (MAX APAP:4GM/24HR) 12/15/19 23 024 Active potassium chloride ER 20 mEq tablet,extended release RxNorm: 478223 Take 1 Tablet(s) Oral BID 12/09/19 23 023 Active d/c 20mEq once daily (sent from hospital) clotrimazole 1 % topical cream RxNorm: 563050 apply 1g topically to top of feet and in between toes BID 12/09/19 23 023 Active nystatin 100,000 unit/gram topical powder RxNorm: 802445 APPLY TO AFFECTED AREAS TOPICALLY 2 TIMES DAILY 11/21/19 23 024 Active Nystop 100,000 unit/gram topical powder RxNorm: 885981 Apply to abd folds, under breasts and L side of groin Topical BID x 14 days, then BID PRN 11/20/19 23 023 Inactive dx: yeast dermatitis Bengay Ultra Strength 4 %-30 %-10 % topical cream RxNorm: 394695 Apply 1 Gram(s) Topical QID PRN to feet and legs for neuropathic pain 11/11/19 23 024 Active hydrocortisone 2.5 % topical cream RxNorm: 590651 Apply 1/2 Gram(s) Topical BID as needed 11/10/19 23 No Stop Date Active clotrimazole 1 % topical cream RxNorm: 236248 Apply 1/2 Gram(s) Topical BID Apply to affected areas of groin, periarea, and abdominal topically 2 times daily 11/10/19 023 Inactive Levemir FlexPen 100 unit/mL (3 mL) solution subcutaneous insulin pen RxNorm: 946411 Inject 30 Unit(s) Subcutaneous BID 10/07/19 024 Active Humulin R U-500 (Concentrated) Insulin 500 unit/mL subcutaneous soln RxNorm: 667883 Inject 100 Unit(s) Subcutaneous TID 10/07/19 024 Active Ozempic 0.25 mg or 0.5 mg (2 mg/3 mL) subcutaneous pen injector RxNorm: 4960566 Inject 1/2 Milligram(s) Subcutaneous QW once a week 10/07/19 024 Active aripiprazole 15 mg tablet RxNorm: 064128 1/2 TAB (7.5MG) ORALLY DAILY (DX:MAJOR DEPRESSIVE DISORDER) 09/23/19 23 023 Active Accu-Chek Guide test strips RxNorm: Use 1 Test Strip QID 09/15/19 23 024 Active ok to substitute with any covered alternative test strip Lancets,Thin 28 gauge RxNorm: Use 1 as directed QID 09/15/19 23 024 Active torsemide 20 mg tablet RxNorm: 505322 Take 1 Tablet(s) Oral BID 09/09/19 23 024 Active d/c once daily dosing carvedilol 25 mg tablet RxNorm: 883334 Take 1 Tablet(s) Oral QD 08/25/19 23 024 Active pregabalin 150 mg capsule RxNorm: 221231 1 Capsule(s) Oral HS at bed time 08/18/19 23 023 Inactive pregabalin 100 mg capsule RxNorm: 452364 1 Capsule(s) Oral QAM every morning 08/18/19 23 023 Inactive carvedilol 25 mg tablet RxNorm: 239371 1 Tablet(s) Oral QD 07/28/19 23 023 Inactive lisinopril 20 mg tablet RxNorm: 160014 Give 1 Tablet(s) Oral QD 07/28/19 23 023 Inactive Lyrica 150 mg capsule RxNorm: 096404 Take 1 Capsule(s) Oral QHS every night at bedtime 07/19/19 23 023 Inactive d/c 100mg dose Diflucan 150 mg tablet RxNorm: 510081 Take 1 Tablet(s) Oral QD repeat on day 3 and 6 07/19/19 23 023 Inactive pregabalin 100 mg capsule RxNorm: 926573 Take 1 Capsule(s) Oral QAM every morning 07/19/19 23 023 Inactive gatifloxacin 0.5 % eye drops RxNorm: 779362 Instill 1 Drop(s) as directed TID Instill 1 drop in to affected eye(s) starting 1 day prior to surgery and continue until gone (do not exceed 4 weeks). 07/13/19 023 Inactive carvedilol 25 mg tablet RxNorm: 917041 2 Tablet(s) Oral BID 07/13/19 23 023 Inactive Humulin R Regular U-100 Insulin 100 unit/mL injection solution RxNorm: 837719 85 Unit(s) Injection TID 07/13/19 23 023 Inactive ketorolac 0.5 % eye drops RxNorm: 933213 Instill 1 Drop(s) as directed QID Instill 1 drop into affected eye(s) 4 times daily starting 1 day prior to surgery and continue until gone (do not exceed 4 weeks). 07/13/19 23 023 Inactive Diflucan 150 mg tablet RxNorm: 509929 Take 1 Tablet(s) Oral QD repeat on day 3 and 6 06/30/19 23 023 Inactive Accu-Chek Guide test strips RxNorm: Use 1 Test Strip QID Use 1 test strip to monitor blood glucose 4 times daily and as needed. Dx:E11.42. 06/23/19 023 Inactive ok to substitute with any covered alternative test strip dextromethorphan-gu aifenesin 10 mg-100 mg/5 mL oral liquid RxNorm: 928442 Take 10 Milliliter(s) Oral every 4 hours as needed for cough 06/19/19 023 Inactive dextromethorphan-gu aifenesin 10 mg-100 mg/5 mL oral liquid RxNorm: 367873 Take 10 Milliliter(s) Oral every 4 hours as needed for cough 06/19/19 023 Inactive Lyrica 150 mg capsule RxNorm: 937843 Take 1 Capsule(s) Oral QHS every night at bedtime 06/18/19 023 Inactive d/c 100mg dose aripiprazole 15 mg tablet RxNorm: 849416 1/2 TAB (7.5MG) ORALLY DAILY (DX:MAJOR DEPRESSIVE DISORDER) 06/05/19 23 023 Inactive pregabalin 100 mg capsule RxNorm: 385843 1 Capsule(s) Oral QAM every morning 06/02/19 023 Inactive Banophen 50 mg capsule RxNorm: 2435613 Take 1 Capsule(s) Oral Q6H every 6 hours as needed 05/19/19 23 No Stop Date Active Novolog Flexpen U-100 Insulin aspart 100 unit/mL (3 mL) subcutaneous RxNorm: 4958696 Inject 10 Unit(s) Subcutaneous QHS every night at bedtime with nighttime snack 04/08/20 22 022 Inactive Novolog Flexpen U-100 Insulin aspart 100 unit/mL (3 mL) subcutaneous RxNorm: 1565949 Inject 42 Unit(s) Subcutaneous TID in addition to sliding scale 04/08/20 22 022 Inactive d/c 36u albuterol sulfate HFA 90 mcg/actuation aerosol inhaler RxNorm: 0395247 Take 2 Puff(s) Inhalation Q4H every four hours as needed as needed for SOB, cough, or wheezing 04/07/20 030 Active Banophen 50 mg capsule RxNorm: 5391599 Take 1 Capsule(s) Oral Q6H every 6 hours as needed 04/06/20 023 Inactive diphenhydramine 50 mg tablet RxNorm: 2571126 Take 1 Tablet(s) Oral Q6H every 6 hours as needed 04/06/20 022 Inactive diphenhydramine 50 mg tablet RxNorm: 3761804 1 Tablet(s) Oral Q6H every 6 hours as needed 04/06/20 022 Inactive Abilify 15 mg tablet RxNorm: 155182 1/2 Tablet(s) Oral QD 03/10/20 023 Inactive Shingrix (PF) 50 mcg/0.5 mL intramuscular suspension, kit RxNorm: 0740367 Administer 1/2 Milliliter(s) Intramuscular QD one time shingrix step 2 ( step 1 given 11/04/21) WITH needle - Nursing please administer upon arrival and once administered post a bridge message with date of administration, reliability technologist, expiration date, and lot# so we can update [facility] 02/18/20 22 022 Inactive dispense with needle Shingrix (PF) 50 mcg/0.5 mL intramuscular suspension, kit RxNorm: 3786240 Administer 1/2 Milliliter(s) Intramuscular QD one time shingrix step 2 ( step 1 given 11/04/21) WITH needle - Nursing please administer upon arrival and once administered post a bridge message with date of administration, reliability technologist, expiration date, and lot# so we can update [facility] 02/18/20 22 022 Inactive dispense with needle polyethylene glycol 3350 17 gram/dose oral powder RxNorm: 678478 Take 17=1 capful Gram(s) Oral QD mix with 4-8oz of liquid 01/08/20 22 023 Inactive take this in addition to BID prn order Lyrica 100 mg capsule RxNorm: 706708 Take 1 Capsule(s) Oral QAM every morning 01/08/20 22 022 Inactive d/c 50mg dose acetaminophen 500 mg tablet RxNorm: 789343 Take 1 Tablet(s) Oral TID 01/08/20 22 022 Inactive d/c PRN order Lyrica 150 mg capsule RxNorm: 864654 Take 1 Capsule(s) Oral QHS every night at bedtime 01/08/20 22 023 Inactive d/c 100mg dose Abilify 5 mg tablet RxNorm: 107830 Take 1 Tablet(s) Oral QD take 1 tab po QD #30 refill 5 dx: MDD 12/12/19 22 022 Inactive Abilify 5 mg tablet RxNorm: 523780 Take 1 Tablet(s) Oral QD take 1 tab po QD #30 refill 5 dx: MDD 12/12/19 22 022 Inactive Novolog Flexpen U-100 Insulin aspart 100 unit/mL (3 mL) subcutaneous RxNorm: 9728164 Inject 42 Unit(s) Subcutaneous TID in addition to sliding scale 12/10/19 022 Inactive d/c 36u chlorthalidone 25 mg tablet RxNorm: 975475 Take 1 Tablet(s) Oral QAM every morning 12/10/19 023 Inactive pregabalin 50 mg capsule RxNorm: 556078 Take 1 Capsule(s) Oral QAM every morning 11/12/19 Inactive tetanus-diphtheria toxoids-Td 2 Lf unit-2 Lf unit/0.5 mL IM suspension RxNorm: 139 Take 0.5 Miscellaneous Intramuscular 11/12/19 022 Inactive need tdap - nursing to administer upon arrival pregabalin 50 mg capsule RxNorm: 063880 Take 1 Capsule(s) Oral QAM every morning 10/16/19 022 Inactive pregabalin 50 mg capsule RxNorm: 164690 Take 1 Capsule(s) Oral QAM every morning 10/16/19 22 022 Inactive pregabalin 50 mg capsule RxNorm: 926502 1 Capsule(s) Oral QAM every morning 10/15/19 22 022 Inactive Shingrix (PF) 50 mcg/0.5 mL intramuscular suspension, kit RxNorm: 6084611 Administer 1/2 Milliliter(s) Intramuscular one time Nursing please administer upon arrival and once administered post a bridge message with date of administration, reliability technologist, expiration date, and lot# so we can update [facility]. 10/09/19 22 022 Inactive shingrix step 1 Shingrix (PF) 50 mcg/0.5 mL intramuscular suspension, kit RxNorm: 5877967 Administer 1/2 Milliliter(s) Intramuscular one time Nursing please administer upon arrival and once administered post a bridge message with date of administration, reliability technologist, expiration date, and lot# so we can update [facility]. 10/09/19 22 022 Inactive shingrix step 1 cholecalciferol (vitamin D3) 1,250 mcg (50,000 unit) capsule RxNorm: 591455 Take 1 Capsule(s) Oral QW once a [...] aspart 100 unit/mL (3 mL) subcutaneous RxNorm: 5542663 Inject 10 Unit(s) Subcutaneous QHS every night at bedtime with nighttime snack 10/08/19 22 022 Inactive Shingrix (PF) 50 mcg/0.5 mL intramuscular suspension, kit RxNorm: 2205340 ADMINISTER 2-DOSE SERIES PER CDC GUIDELINES 10/08/19 22 022 Active Shingrix (PF) 50 mcg/0.5 mL intramuscular suspension, kit RxNorm: 4135977 ADMINISTER 2-DOSE SERIES PER CDC GUIDELINES 10/08/19 22 022 Inactive Novolog Flexpen U-100 Insulin aspart 100 unit/mL (3 mL) subcutaneous RxNorm: 0546975 Inject 36 Unit(s) Subcutaneous TID in addition to sliding scale 10/08/19 22 Inactive Novofine Autocover 30 gauge x 1/3 needle RxNorm: Use 1 Miscellaneous UD as directed Use 1 needle as directed to administer insulin 5 times a day Dx:E11.42. 10/03/19 22 Inactive ok to substitute with any covered alternative pen needle benzoyl peroxide 10 % topical cleanser RxNorm: 927815 Apply 1 Application Topical QD apply to face, wash rinse and dry once daily (may change to QOD if drying) 08/19/19 022 Inactive (%covered by insurance) #60ml refill 11 dx: acne benzoyl peroxide 10 % topical cleanser RxNorm: 106116 Apply 1 Application Topical QD apply to face, wash rinse and dry once daily (may change to QOD if drying) 08/19/19 022 Inactive (%covered by insurance) #60ml refill 11 dx: acne benzoyl peroxide 10 % topical cleanser RxNorm: 746963 Apply 1 Application Topical QD apply to face, wash rinse and dry once daily (may change to QOD if drying) 08/19/19 022 Inactive (%covered by insurance) #60ml refill 11 dx: acne Lyrica 50 mg capsule RxNorm: 559276 Take 1 Capsule(s) Oral QAM every morning Take 1 capsule by mouth once daily 08/19/19 22 022 Inactive benzoyl peroxide 10 % topical cleanser RxNorm: 875719 Apply 1 Application Topical QD apply to face, wash rinse and dry once daily (may change to QOD if drying) 08/19/19 022 Inactive (%covered by insurance) #60ml refill 11 dx: acne Lyrica 100 mg capsule RxNorm: 557883 Take 1 Capsule(s) Oral QHS every night at bedtime Take 1 capsule by mouth once daily at bedtime 08/19/19 22 022 Inactive Lyrica 100 mg capsule RxNorm: 974932 Take 1 Capsule(s) Oral QHS every night at bedtime Take 1 capsule by mouth once daily at bedtime 08/16/19 22 022 Inactive Lyrica 50 mg capsule RxNorm: 173343 Take 1 Capsule(s) Oral QAM every morning Take 1 capsule by mouth once daily 08/16/19 22 022 Inactive Levemir FlexTouch U-100 Insulin 100 unit/mL (3 mL) subcutaneous pen RxNorm: 290770 Inject 86 Unit(s) Subcutaneous BID 08/05/19 22 022 Inactive d/c 83units BID Lyrica 100 mg capsule RxNorm: 050879 Take 1 Capsule(s) Oral QHS every night at bedtime Take 1 capsule by mouth once daily at bedtime 07/14/19 22 022 Inactive Lyrica 50 mg capsule RxNorm: 260849 Take 1 Capsule(s) Oral QAM every morning Take 1 capsule by mouth once daily 07/14/19 22 022 Inactive Levemir FlexTouch U-100 Insulin 100 unit/mL (3 mL) subcutaneous pen RxNorm: 727640 Inject 83 Unit(s) Subcutaneous BID 07/08/19 22 [...] 30 mg tablet,extended release 24 hr RxNorm: 649967 Take 1 Tablet(s) Oral QD 05/05/20 No Stop Date Active hydralazine 50 mg tablet RxNorm: 023661 Take 1 Tablet(s) Oral QID 05/05/20 21 022 Inactive venlafaxine ER 225 mg tablet,extended release 24 hr RxNorm: 654032 Take 1 Tablet(s) Oral QD 05/05/20 Inactive venlafaxine ER 225 mg tablet,extended release 24 hr RxNorm: 589373 Take 1 Tablet(s) Oral QD 05/05/20 022 Inactive hydralazine 50 mg tablet RxNorm: 178676 Take 1 Tablet(s) Oral QID 05/05/20 Inactive aspirin 81 mg tablet,delayed release RxNorm: 568659 Take 1 Tablet(s) Oral QD 03/31/20 Inactive Zetia 10 mg tablet RxNorm: 620118 Take 1 Tablet(s) Oral QD 03/31/20 022 Inactive Vitamin D2 1,250 mcg (50,000 unit) capsule RxNorm: 8832497 Take 1 Capsule(s) Oral QW once a week x 12 weeks 03/31/20 Inactive Vitamin D2 1,250 mcg (50,000 unit) capsule RxNorm: 8370550 Take 1 Capsule(s) Oral QW once a week 03/31/20 Inactive Zetia 10 mg tablet RxNorm: 966679 Take 1 Tablet(s) Oral QD 03/31/20 021 Inactive hydralazine 25 mg tablet RxNorm: 755653 Take 1 Tablet(s) Oral QID 03/31/20 021 Inactive hydralazine 25 mg tablet RxNorm: 789067 Take 1 Tablet(s) Oral QID 03/31/20 021 Inactive hydralazine 10 mg tablet RxNorm: 836887 Take 1 Tablet(s) Oral QID 03/03/20 021 Inactive cephalexin 500 mg tablet RxNorm: 768280 Take 1 Tablet(s) Oral QID 02/27/20 021 Inactive cephalexin 500 mg tablet RxNorm: 685536 Take 1 Tablet(s) Oral QID 02/27/20 021 Inactive lisinopril 40 mg tablet RxNorm: 450364 Take 1 Tablet(s) Oral QD 02/11/20 023 Inactive Eliquis 5 mg tablet RxNorm: 4203650 Take 1 Tablet(s) Oral BID 01/05/20 022 Inactive Eliquis 5 mg tablet RxNorm: 2728525 Take 2 Tablet(s) Oral QD 01/01/20 21 021 Inactive Lyrica 50 mg capsule RxNorm: 767926 Take 1 Capsule(s) Oral QAM every morning 12/24/19 21 021 Inactive Lyrica 100 mg capsule RxNorm: 484076 Take 1 Capsule(s) Oral QHS every night at bedtime 12/24/19 21 021 Inactive clotrimazole 1 % topical cream RxNorm: 786688 Apply to right foot and toes Topical BID 12/04/19 21 023 Inactive metoprolol succinate ER 200 mg tablet,extended release 24 hr RxNorm: 920114 Take 1 Tablet(s) Oral QD 12/04/19 21 023 Inactive ciprofloxacin 500 mg tablet RxNorm: 998886 Take 1 Tablet(s) Oral QD 11/30/19 21 021 Inactive DX ofloxacin otic drops Accu-Chek Guide test strips RxNorm: USE 1 TO CHECK GLUCOSE 4 TIMES DAILY AND NEEDED 11/15/19 21 023 Inactive Blood Glucose Test strips RxNorm: Use 1 Test Strip QID at PRN 11/05/19 21 023 Inactive E11.42 lisinopril 30 mg tablet RxNorm: 288431 Take 1 Tablet(s) Oral QD 10/30/19 021 Inactive lisinopril 20 mg tablet RxNorm: 440199 Take 1 Tablet(s) Oral QD 10/23/19 21 021 Inactive lisinopril 20 mg tablet RxNorm: 044130 Take 1 Tablet(s) Oral QD 10/23/19 21 021 Inactive lisinopril 10 mg tablet RxNorm: 098013 Take 1 Tablet(s) Oral QD 10/02/19 021 Inactive icosapent ethyl 1 gram capsule RxNorm: 4918289 Take 2 Capsule(s) (2 gm) Oral BID with meals 09/12/19 022 Inactive Okay to dispense one 2gm tab if you have that available. icosapent ethyl 1 gram capsule RxNorm: 0960021 Take 2 Capsule(s) Oral BID 09/12/19 21 021 Inactive Okay to dispense one 2gm tab if you have that available. amlodipine 10 mg tablet RxNorm: 117933 Take 1 Tablet(s) Oral QD 09/04/19 022 Inactive aspirin 81 mg tablet,delayed release RxNorm: 699974 Take 1 Tablet(s) Oral QD 09/04/19 21 021 Inactive Levemir FlexTouch U-100 Insulin 100 unit/mL (3 mL) subcutaneous pen RxNorm: 353393 Inject 150 Unit(s) Subcutaneous BID 09/04/19 21 022 Inactive venlafaxine ER 150 mg tablet,extended release 24 hr RxNorm: 529760 Take 1 Tablet(s) Oral QD 09/04/19 21 021 Inactive clotrimazole-betame thasone 1 %-0.05 % topical cream RxNorm: 693503 Apply to rash on red area on left abdomen/chest Topical BID 08/10/19 21 021 Inactive amlodipine 5 mg tablet RxNorm: 283580 Take 1 Tablet(s) Oral QD 07/31/19 Inactive cephalexin 500 mg tablet RxNorm: 449616 Take 1 Tablet(s) Oral BID BID - Twice Daily 07/31/19 21 021 Inactive Start 08/01/20 pantoprazole 40 mg tablet,delayed release RxNorm: 791334 Take 1 Tablet(s) Oral QAM every morning 07/08/19 Inactive senna 8.6 mg tablet RxNorm: 734448 Take 1 Tablet(s) Oral QD 07/08/19 Inactive pravastatin 80 mg tablet RxNorm: 962857 Take 1 Tablet(s) Oral QHS every night at bedtime 07/08/19 Inactive carbamazepine 200 mg tablet RxNorm: 444461 Take 1 Tablet(s) Oral BID 07/08/19 Inactive clopidogrel 75 mg tablet RxNorm: 785311 Take 1 Tablet(s) Oral QD 07/08/19 Inactive Blood Glucose Test strips RxNorm: Use 1 Test Strip QID at PRN 07/08/19 Inactive E11.42 Novolog Flexpen U-100 Insulin aspart 100 unit/mL (3 mL) subcutaneous RxNorm: 9101343 Administer per sliding scale Milliliter(s) Subcutaneous TID 151-200: 10 u; 201-250: 20 u; 251-300: 30 u; 301-350: 40 u; 351-400: 50 u. 07/08/19 Inactive lisinopril 5 mg tablet RxNorm: 475548 Take 1 Tablet(s) Oral QD 07/08/19 Inactive Novolog Flexpen U-100 Insulin aspart 100 unit/mL (3 mL) subcutaneous RxNorm: 3864842 Inject 85 Unit(s) Subcutaneous TID 07/08/19 Inactive clotrimazole 1 % topical cream RxNorm: 005097 Apply to bilateral groin areas Topical BID 07/08/19 Inactive metoprolol succinate ER 200 mg tablet,extended release 24 hr RxNorm: 520854 Take 1 Tablet(s) Oral QD 07/08/19 21 021 Inactive Vitamin D3 25 mcg (1,000 unit) tablet RxNorm: 424587 Take 1 Tablet(s) Oral QD 07/08/19 021 Inactive isosorbide dinitrate 30 mg tablet RxNorm: 274047 Take 1 Tablet(s) Oral QD 07/08/19 021 Inactive Levemir FlexTouch U-100 Insulin 100 unit/mL (3 mL) subcutaneous pen RxNorm: 900844 Inject 140 Unit(s) Subcutaneous BID 07/08/19 21 021 Inactive torsemide 20 mg tablet RxNorm: 999243 Take 1 Tablet(s) Oral QD 07/08/19 023 Inactive venlafaxine 75 mg tablet RxNorm: 755024 Take 1 Tablet(s) Oral QD 07/08/19 021 Inactive acetaminophen 500 mg tablet RxNorm: 546056 Take 1 Tablet(s) Oral TID as needed for headache 06/18/19 21 021 Inactive acetaminophen 500 mg tablet RxNorm: 418301 Take 1 Tablet(s) Oral TID as needed for headache 06/18/19 21 021 Inactive Lyrica 100 mg capsule RxNorm: 331177 Take 1 Capsule(s) Oral QHS every night at bedtime 06/11/19 021 Inactive Lyrica 50 mg capsule RxNorm: 332833 Take 1 Capsule(s) Oral QAM every morning 06/10/19 21 021 Inactive hydrocortisone 2.5 % topical cream RxNorm: 436423 Apply to bilateral groin creases Topical BID 05/15/20 20 021 Inactive clotrimazole 1 % topical cream RxNorm: 939826 Apply to bilateral groin areas Topical BID 05/15/20 20 021 Inactive Lyrica 50 mg capsule RxNorm: 810764 Take 1 Capsule(s) Oral QAM every morning 05/14/20 20 020 Inactive Lyrica 100 mg capsule RxNorm: 385145 Take 1 Capsule(s) Oral QHS every night [...] Inactive Nystop 100,000 unit/gram topical powder RxNorm: 350263 Apply to abd folds, under breasts and L side of groin Topical BID x 14 days, then BID PRN 04/08/20 20 Inactive dx: yeast dermatitis Lyrica 100 mg capsule RxNorm: 345254 Take 1 Capsule(s) Oral QHS every night at bedtime 03/13/20 20 Inactive Lyrica 50 mg capsule RxNorm: 310638 Take 1 Capsule(s) Oral QAM every morning 03/13/20 20 Inactive ketoconazole 2 % shampoo RxNorm: 185952 Apply Topical two times a week with showers 03/11/20 20 Inactive cholecalciferol (vitamin D3) 50 mcg (2,000 unit) tablet RxNorm: 344027 Take 1 Tablet(s) Oral QD 03/11/20 20 Inactive Zetia 10 mg tablet RxNorm: 830612 Take 1 Tablet(s) Oral QD 03/07/20 20 021 Inactive Zetia 10 mg tablet RxNorm: 479522 Take 1 Tablet(s) Oral QD 03/07/20 20 Inactive Lyrica 50 mg capsule RxNorm: 528447 Take 1 Capsule(s) Oral QAM every morning 02/15/20 Inactive Lyrica 100 mg capsule RxNorm: 548878 Take 1 Capsule(s) Oral QHS every night at bedtime 02/15/20 Inactive Lyrica 100 mg capsule RxNorm: 794117 Take 1 Capsule(s) Oral QHS every night at bedtime 02/15/20 20 Inactive Lyrica 50 mg capsule RxNorm: 279369 Take 1 Capsule(s) Oral QAM every morning 02/15/20 20 Inactive polyethylene glycol 3350 17 gram/dose oral powder RxNorm: 253755 Take 17=1 capful Gram(s) Oral BID as needed mix with 4-8oz of liquid 06/12/2021 Activemetoprolol succinate ER 200 mg tablet,extended release 24 hrRxNorm: 404707 Take 1 Tablet(s) Oral QD08/11/2022ctiveloperamide 2 mg capsuleRxNorm: 618414 Take 1 Capsule(s) Oral QID as esmqmn6106/12/2021ctivehydralazine 50 mg tablet RxNorm: 393361Hfhk 1 Tablet(s) Oral QID08/11/2022ctivevenlafaxine ER 75 mg capsule,extended release 24 hrRxNorm: 403526Ixbw 3 Capsule(s) Oral QD06/12/2021 02/01/2023Inactiveicosapent ethyl 1 gram capsuleRxNorm: 3556666Xqwv 2 Capsule(s) (2 gm) Oral BID with meals/InactiveOkay to dispense one 2gm tab if you have that available.Levemir FlexTouch U-100 Insulin 100 unit/mL (3 mL) subcutaneous penRxNorm: 942305Xqtveu 80 Unit(s) Subcutaneous BID07/14/2022 07/12/2022InactiveNovolog Flexpen U-100 Insulin aspart 100 unit/mL (3 mL) subcutaneousRxNorm: 3706141Gbmvgn 30 Unit(s) Subcutaneous TID with meals /Inactive [...] Status Date Referral: [facility] WPtel: [phone], [address] [id number] USReferralRecords Vrhmbdvo74/08/2023Referral: [facility] WPtel: [address] [facility] [address] [id number]/12/2022Referral: General CardiologyReferralCompleted 1Referral: General PsychologistReferralClosed Instructions Comment [...] Sister Jyotsna involved in his care cell# [phone] Guardian: Don (tapan met in person 09/01/21), now has Lexii (same group as don)Lab Schedule: * 02/08/2023
--- OUTSIDE RECORDS SUMMARY | 2023-02-18 18:14 | XMS_ITS | CCD ---
Author Name Sandra Clark CNP Address [address] [place] [address] Phone Organization [facility] Phone Care Team Providers Care Ict Business Development Manager Name Role Phone Chelo Fonseca PA-C Primary Care Provider Unavaila ble Chelo Fonseca PA-C Chronic Care Management Nicole archer Summary Purpose DataExchange Insurance Providers Payer name Policy type / Coverage type Covered constitution party ID Effective Begin Date Effective End Date Medicare [place] Medicare Part B [id number] Unknown Unknown Medicaid [place] Medicare Part B [id number] Unknown Unknown Family history Sister Brittany Suggs [...] Unknown Mcc 09/03/[address]: 3362827 Non-Smoker / No History of Smoking 09/02/[address]: 918139314 No Alcohol Consum ption 09/02/2020 Allergies, Adverse Reactions, Alerts Substance Reaction Codes Entered Date Inactivated Date Status LISINOPRIL RxNorm: 9821490No Inactive DateActiveMetformin TAwVbupsqv82/28/2020No Inactive DateActive Problems Condition Codes Effective Dates Condition St atus Annual physical exam ICD-10: Z00.00 ICD-9: V70.009/ctiveCoronary artery disease involving chenega coronary artery of chenega heart, angina presence unspecifiedICD-10: I25.10 ICD-9: 414.0109/ctiveEncounter for other specified special examinations ICD-10: Z01.89 ICD-9: V72.8509/ctiveEncounter for screening for nutritional disorder ICD-10: Z13.21 ICD-9: V77.9909/ctiveHyperlipidemia associated with type 2 diabetes mellitusICD-10: E11.69 ICD-9: 250.8009/ctiveOther skilled nursing (current) drug therapyICD-10: Z79.899 ICD-9: V58.6909/ctiveStage 2 [...] vascular disease)ICD-10: I73.9 ICD-9: 443.909/2ActiveDepressionICD-10: F32.9 ICD-9: 80345/esolvedDVT (deep venous thrombosis)ICD-10: I82.409 ICD-9: 453.4009/esolvedEncounter for immunizationICD-10: Z23 ICD-9: V03.8909/esolvedLong term (current) use of insulinICD-10: Z79.4 09esolvedMuscular painICD-10: M79.10 ICD-9: 729.109/27/2022ResolvedDandruff in adultICD-10: L21.0 ICD-9: 690.1808/ctiveHypertension associated with diabetesICD-10: E11.59 ICD-9: 250.8008/2ResolvedHistory of anemia due to CKDICD-10: N18.9 ICD-9: 585.907/2ActiveStage 2 chronic kidney diseaseICD-10: N18.2 ICD-9: 585.207/2ActiveGout due to renal impairmentICD-10: M10.30 ICD-9: 274.1006ctiveLearning disabilityICD-10: F81.9 ICD-9: 315.212ctiveSkin tagICD-10: L91.8 ICD-9: 701.911/ctiveCallus of heelICD-10: L84 ICD-9: 62675ctiveImpacted cerumen, left earICD-10: H61.22 ICD-9: 380.408/ctiveContact with [...] Z20.828 ICD-9: V01.7902esolvedHyperhidrosis of palmsICD-10: L74.512 ICD-9: 705.0771XjqeuxKpvjwiehBmpmfju57/28/2020ActiveDiabetes mellitus Type 3Dpdrnoc34/28/2020ActiveAnemia in chronic kidney diseaseICD-10: D63.1 02/12/2020ResolvedHyperlipidemia, unspecifiedICD-10: E78.Resolved Medications Medication Codes Instructions Start Date Stop Date Status Fill Instructions pregabalin 150 mg capsule RxNorm: 365417 Take 1 Capsule(s) Oral HS at bed time 02/19/20 23 023 Active pregabalin 100 mg capsule RxNorm: 465514 Take 1 Capsule(s) Oral QAM every morning 02/18/20 23 024 Active FreeStyle Chema 2 Sensor kit RxNorm: use as directed 02/04/20 23 024 Active venlafaxine ER 75 mg capsule,extended release 24 hr RxNorm: 335947 Take 3 Capsule(s) Oral QD 02/04/20 23 023 Inactive FreeStyle Chema 2 Sensor kit RxNorm: use as directed 02/04/20 23 023 Inactive fluconazole 150 mg tablet RxNorm: 445637 Take 1 Tablet(s) Oral on day 3 and on day 6 02/03/20 024 Active chlorthalidone 25 mg tablet RxNorm: 031817 Take 1 Tablet(s) Oral QAM every morning 02/03/20 23 No Stop Date Active venlafaxine ER 150 mg capsule,extended release 24 hr RxNorm: 573881 Take 1 Capsule(s) Oral QD 02/03/20 023 Inactive acetaminophen 500 mg tablet RxNorm: 379182 1 TABLET ORALLY 3 TIMES DAILY (MAX APAP:4GM/24HR) 12/15/19 23 024 Active potassium chloride ER 20 mEq tablet,extended release RxNorm: 518416 Take 1 Tablet(s) Oral BID 12/09/19 23 023 Active d/c 20mEq once daily (sent from hospital) clotrimazole 1 % topical cream RxNorm: 971876 apply 1g topically to top of feet and in between toes BID 12/09/19 23 023 Active nystatin 100,000 unit/gram topical powder RxNorm: 357355 APPLY TO AFFECTED AREAS TOPICALLY 2 TIMES DAILY 11/21/19 23 024 Active Nystop 100,000 unit/gram topical powder RxNorm: 966642 Apply to abd folds, under breasts and L side of groin Topical BID x 14 days, then BID PRN 11/20/19 023 Inactive dx: yeast dermatitis [place] Ultra Strength 4 %-30 %-10 % topical cream RxNorm: 913428 Apply 1 Gram(s) Topical QID PRN to feet and legs for neuropathic pain 11/11/19 024 Active hydrocortisone 2.5 % topical cream RxNorm: 537603 Apply 1/2 Gram(s) Topical BID as needed 11/10/19 No Stop Date Active clotrimazole 1 % topical cream RxNorm: 054288 Apply 1/2 Gram(s) Topical BID Apply to affected areas of groin, periarea, and abdominal topically 2 times daily 11/10/19 023 Inactive Levemir FlexPen 100 unit/mL (3 mL) solution subcutaneous insulin pen RxNorm: 634848 Inject 30 Unit(s) Subcutaneous BID 10/07/19 024 Active Humulin R U-500 (Concentrated) Insulin 500 unit/mL subcutaneous soln RxNorm: 624194 Inject 100 Unit(s) Subcutaneous TID 10/07/19 024 Active Ozempic 0.25 mg or 0.5 mg (2 mg/3 mL) subcutaneous pen injector RxNorm: 1428661 Inject 1/2 Milligram(s) Subcutaneous QW once a week 10/07/19 024 Active aripiprazole 15 mg tablet RxNorm: 115425 1/2 TAB (7.5MG) ORALLY DAILY (DX:MAJOR DEPRESSIVE DISORDER) 09/23/19 023 Active Accu-Chek Guide test strips RxNorm: Use 1 Test Strip QID 09/15/19 23 024 Active ok to substitute with any covered alternative test strip Lancets,Thin 28 gauge RxNorm: Use 1 as directed QID 09/15/19 23 024 Active torsemide 20 mg tablet RxNorm: 427623 Take 1 Tablet(s) Oral BID 09/09/19 23 024 Active d/c once daily dosing carvedilol 25 mg tablet RxNorm: 788292 Take 1 Tablet(s) Oral QD 08/25/19 23 024 Active pregabalin 150 mg capsule RxNorm: 542977 1 Capsule(s) Oral HS at bed time 08/18/19 23 023 Inactive pregabalin 100 mg capsule RxNorm: 207275 1 Capsule(s) Oral QAM every morning 08/18/19 23 023 Inactive carvedilol 25 mg tablet RxNorm: 335702 1 Tablet(s) Oral QD 07/28/19 23 023 Inactive lisinopril 20 mg tablet RxNorm: 078569 Give 1 Tablet(s) Oral QD 07/28/19 23 023 Inactive Lyrica 150 mg capsule RxNorm: 048599 Take 1 Capsule(s) Oral QHS every night at bedtime 07/19/19 23 023 Inactive d/c 100mg dose Diflucan 150 mg tablet RxNorm: 512227 Take 1 Tablet(s) Oral QD repeat on day 3 and 6 07/19/19 23 023 Inactive pregabalin 100 mg capsule RxNorm: 017380 Take 1 Capsule(s) Oral QAM every morning 07/19/19 23 023 Inactive gatifloxacin 0.5 % eye drops RxNorm: 373193 Instill 1 Drop(s) as directed TID Instill 1 drop in to affected eye(s) starting 1 day prior to surgery and continue until gone (do not exceed 4 weeks). 07/13/19 23 023 Inactive carvedilol 25 mg tablet RxNorm: 627552 2 Tablet(s) Oral BID 07/13/19 23 023 Inactive Humulin R Regular U-100 Insulin 100 unit/mL injection solution RxNorm: 214595 85 Unit(s) Injection TID 07/13/19 23 023 Inactive ketorolac 0.5 % eye drops RxNorm: 415146 Instill 1 Drop(s) as directed QID Instill 1 drop into affected eye(s) 4 times daily starting 1 day prior to surgery and continue until gone (do not exceed 4 weeks). 07/13/19 23 023 Inactive Diflucan 150 mg tablet RxNorm: 667910 Take 1 Tablet(s) Oral QD repeat on day 3 and 6 06/30/19 23 023 Inactive Accu-Chek Guide test strips RxNorm: Use 1 Test Strip QID Use 1 test strip to monitor blood glucose 4 times daily and as needed. Dx:E11.42. 06/23/19 23 023 Inactive ok to substitute with any covered alternative test strip dextromethorphan-gu aifenesin 10 mg-100 mg/5 mL oral liquid RxNorm: 171581 Take 10 Milliliter(s) Oral every 4 hours as needed for cough 06/19/19 023 Inactive dextromethorphan-gu aifenesin 10 mg-100 mg/5 mL oral liquid RxNorm: 227656 Take 10 Milliliter(s) Oral every 4 hours as needed for cough 06/19/19 23 023 Inactive Lyrica 150 mg capsule RxNorm: 837110 Take 1 Capsule(s) Oral QHS every night at bedtime 06/18/19 23 023 Inactive d/c 100mg dose aripiprazole 15 mg tablet RxNorm: 400074 1/2 TAB (7.5MG) ORALLY DAILY (DX:MAJOR DEPRESSIVE DISORDER) 06/05/19 23 023 Inactive pregabalin 100 mg capsule RxNorm: 989021 1 Capsule(s) Oral QAM every morning 06/02/19 23 023 Inactive Banophen 50 mg capsule RxNorm: 6671694 Take 1 Capsule(s) Oral Q6H every 6 hours as needed 05/19/19 23 No Stop Date Active Novolog Flexpen U-100 Insulin aspart 100 unit/mL (3 mL) subcutaneous RxNorm: 3475819 Inject 10 Unit(s) Subcutaneous QHS every night at bedtime with nighttime snack 04/08/20 22 022 Inactive Novolog Flexpen U-100 Insulin aspart 100 unit/mL (3 mL) subcutaneous RxNorm: 8619547 Inject 42 Unit(s) Subcutaneous TID in addition to sliding scale 04/08/20 022 Inactive d/c 36u albuterol sulfate HFA 90 mcg/actuation aerosol inhaler RxNorm: 9287057 Take 2 Puff(s) Inhalation Q4H every four hours as needed as needed for SOB, cough, or wheezing 04/07/20 030 Active Banophen 50 mg capsule RxNorm: 7733420 Take 1 Capsule(s) Oral Q6H every 6 hours as needed 04/06/20 023 Inactive diphenhydramine 50 mg tablet RxNorm: 8211760 Take 1 Tablet(s) Oral Q6H every 6 hours as needed 04/06/20 022 Inactive diphenhydramine 50 mg tablet RxNorm: 6804086 1 Tablet(s) Oral Q6H every 6 hours as needed 04/06/20 022 Inactive Abilify 15 mg tablet RxNorm: 635322 1/2 Tablet(s) Oral QD 03/10/20 023 Inactive Shingrix (PF) 50 mcg/0.5 mL intramuscular suspension, kit RxNorm: 9165468 Administer 1/2 Milliliter(s) Intramuscular QD one time shingrix step 2 ( step 1 given 11/04/21) WITH needle - Nursing please administer upon arrival and once administered post a bridge message with date of administration, assistant manager/embalmer, expiration date, and lot# so we can update [facility] 02/18/20 22 022 Inactive dispense with needle Shingrix (PF) 50 mcg/0.5 mL intramuscular suspension, kit RxNorm: 3450484 Administer 1/2 Milliliter(s) Intramuscular QD one time shingrix step 2 ( step 1 given 11/04/21) WITH needle - Nursing please administer upon arrival and once administered post a bridge message with date of administration, assistant manager/embalmer, expiration date, and lot# so we can update [facility] 02/18/20 22 022 Inactive dispense with needle polyethylene glycol 3350 17 gram/dose oral powder RxNorm: 420126 Take 17=1 capful Gram(s) Oral QD mix with 4-8oz of liquid 01/08/20 22 023 Inactive take this in addition to BID prn order Lyrica 100 mg capsule RxNorm: 745964 Take 1 Capsule(s) Oral QAM every morning 01/08/20 22 022 Inactive d/c 50mg dose acetaminophen 500 mg tablet RxNorm: 838325 Take 1 Tablet(s) Oral TID 01/08/20 22 022 Inactive d/c PRN order Lyrica 150 mg capsule RxNorm: 879138 Take 1 Capsule(s) Oral QHS every night at bedtime 01/08/20 22 023 Inactive d/c 100mg dose Abilify 5 mg tablet RxNorm: 522550 Take 1 Tablet(s) Oral QD take 1 tab po QD #30 refill 5 dx: MDD 12/12/19 22 022 Inactive Abilify 5 mg tablet RxNorm: 862246 Take 1 Tablet(s) Oral QD take 1 tab po QD #30 refill 5 dx: MDD 12/12/19 22 022 Inactive Novolog Flexpen U-100 Insulin aspart 100 unit/mL (3 mL) subcutaneous RxNorm: 9458423 Inject 42 Unit(s) Subcutaneous TID in addition to sliding scale 12/10/19 22 022 Inactive d/c 36u chlorthalidone 25 mg tablet RxNorm: 348784 Take 1 Tablet(s) Oral QAM every morning 12/10/19 22 023 Inactive pregabalin 50 mg capsule RxNorm: 800092 Take 1 Capsule(s) Oral QAM every morning 11/12/19 22 022 Inactive tetanus-diphtheria toxoids-Td 2 Lf unit-2 Lf unit/0.5 mL IM suspension RxNorm: 139 Take 0.5 Miscellaneous Intramuscular 11/12/19 22 022 Inactive need tdap - nursing to administer upon arrival pregabalin 50 mg capsule RxNorm: 649731 Take 1 Capsule(s) Oral QAM every morning 10/16/19 22 022 Inactive pregabalin 50 mg capsule RxNorm: 216670 Take 1 Capsule(s) Oral QAM every morning 10/16/19 22 022 Inactive pregabalin 50 mg capsule RxNorm: 488519 1 Capsule(s) Oral QAM every morning 10/15/19 22 Inactive Shingrix (PF) 50 mcg/0.5 mL intramuscular suspension, kit RxNorm: 0062484 Administer 1/2 Milliliter(s) Intramuscular one time Nursing please administer upon arrival and once administered post a bridge message with date of administration, assistant manager/embalmer, expiration date, and lot# so we can update [facility]. 10/09/19 22 022 Inactive shingrix step 1 Shingrix (PF) 50 mcg/0.5 mL intramuscular suspension, kit RxNorm: 6306847 Administer 1/2 Milliliter(s) Intramuscular one time Nursing please administer upon arrival and once administered post a bridge message with date of administration, assistant manager/embalmer, expiration date, and lot# so we can update [facility]. 10/09/19 22 Inactive shingrix step 1 cholecalciferol (vitamin D3) 1,250 mcg (50,000 unit) capsule RxNorm: 576279 Take 1 Capsule(s) Oral QW once a [...] aspart 100 unit/mL (3 mL) subcutaneous RxNorm: 6715418 Inject 10 Unit(s) Subcutaneous QHS every night at bedtime with nighttime snack 10/08/19 22 Inactive Shingrix (PF) 50 mcg/0.5 mL intramuscular suspension, kit RxNorm: 8215253 ADMINISTER 2-DOSE SERIES PER CDC GUIDELINES 10/08/19 22 022 Active Shingrix (PF) 50 mcg/0.5 mL intramuscular suspension, kit RxNorm: 9988601 ADMINISTER 2-DOSE SERIES PER CDC GUIDELINES 10/08/19 22 Inactive Novolog Flexpen U-100 Insulin aspart 100 unit/mL (3 mL) subcutaneous RxNorm: 4947284 Inject 36 Unit(s) Subcutaneous TID in addition to sliding scale 10/08/19 22 Inactive Novofine Autocover 30 gauge x 1/3 needle RxNorm: Use 1 Miscellaneous UD as directed Use 1 needle as directed to administer insulin 5 times a day Dx:E11.42. 10/03/19 22 Inactive ok to substitute with any covered alternative pen needle benzoyl peroxide 10 % topical cleanser RxNorm: 704946 Apply 1 Application Topical QD apply to face, wash rinse and dry once daily (may change to QOD if drying) 08/19/19 022 Inactive (%covered by insurance) #60ml refill 11 dx: acne benzoyl peroxide 10 % topical cleanser RxNorm: 487710 Apply 1 Application Topical QD apply to face, wash rinse and dry once daily (may change to QOD if drying) 08/19/19 022 Inactive (%covered by insurance) #60ml refill 11 dx: acne benzoyl peroxide 10 % topical cleanser RxNorm: 851247 Apply 1 Application Topical QD apply to face, wash rinse and dry once daily (may change to QOD if drying) 08/19/19 022 Inactive (%covered by insurance) #60ml refill 11 dx: acne Lyrica 50 mg capsule RxNorm: 268638 Take 1 Capsule(s) Oral QAM every morning Take 1 capsule by mouth once daily 08/19/19 22 022 Inactive benzoyl peroxide 10 % topical cleanser RxNorm: 026158 Apply 1 Application Topical QD apply to face, wash rinse and dry once daily (may change to QOD if drying) 08/19/19 22 022 Inactive (%covered by insurance) #60ml refill 11 dx: acne Lyrica 100 mg capsule RxNorm: 109201 Take 1 Capsule(s) Oral QHS every night at bedtime Take 1 capsule by mouth once daily at bedtime 08/19/19 022 Inactive Lyrica 100 mg capsule RxNorm: 388284 Take 1 Capsule(s) Oral QHS every night at bedtime Take 1 capsule by mouth once daily at bedtime 08/16/19 22 022 Inactive Lyrica 50 mg capsule RxNorm: 594270 Take 1 Capsule(s) Oral QAM every morning Take 1 capsule by mouth once daily 08/16/19 22 022 Inactive Levemir FlexTouch U-100 Insulin 100 unit/mL (3 mL) subcutaneous pen RxNorm: 681622 Inject 86 Unit(s) Subcutaneous BID 08/05/19 22 022 Inactive d/c 83units BID Lyrica 100 mg capsule RxNorm: 818181 Take 1 Capsule(s) Oral QHS every night at bedtime Take 1 capsule by mouth once daily at bedtime 07/14/19 22 022 Inactive Lyrica 50 mg capsule RxNorm: 173740 Take 1 Capsule(s) Oral QAM every morning Take 1 capsule by mouth once daily 07/14/19 22 022 Inactive Levemir FlexTouch U-100 Insulin 100 unit/mL (3 mL) subcutaneous pen RxNorm: 060465 Inject 83 Unit(s) Subcutaneous BID 07/08/19 22 [...] 30 mg tablet,extended release 24 hr RxNorm: 290615 Take 1 Tablet(s) Oral QD 05/05/20 21 No Stop Date Active hydralazine 50 mg tablet RxNorm: 714114 Take 1 Tablet(s) Oral QID 05/05/20 21 022 Inactive venlafaxine ER 225 mg tablet,extended release 24 hr RxNorm: 567669 Take 1 Tablet(s) Oral QD 05/05/20 21 021 Inactive venlafaxine ER 225 mg tablet,extended release 24 hr RxNorm: 889405 Take 1 Tablet(s) Oral QD 05/05/20 21 022 Inactive hydralazine 50 mg tablet RxNorm: 818310 Take 1 Tablet(s) Oral QID 05/05/20 21 021 Inactive aspirin 81 mg tablet,delayed release RxNorm: 413455 Take 1 Tablet(s) Oral QD 03/31/20 21 022 Inactive Zetia 10 mg tablet RxNorm: 289356 Take 1 Tablet(s) Oral QD 03/31/20 21 022 Inactive Vitamin D2 1,250 mcg (50,000 unit) capsule RxNorm: 9340700 Take 1 Capsule(s) Oral QW once a week x 12 weeks 03/31/20 21 022 Inactive Vitamin D2 1,250 mcg (50,000 unit) capsule RxNorm: 9969075 Take 1 Capsule(s) Oral QW once a week 03/31/20 021 Inactive Zetia 10 mg tablet RxNorm: 976465 Take 1 Tablet(s) Oral QD 03/31/20 Inactive hydralazine 25 mg tablet RxNorm: 714258 Take 1 Tablet(s) Oral QID 03/31/20 021 Inactive hydralazine 25 mg tablet RxNorm: 628045 Take 1 Tablet(s) Oral QID 03/31/20 021 Inactive hydralazine 10 mg tablet RxNorm: 109868 Take 1 Tablet(s) Oral QID 03/03/20 021 Inactive cephalexin 500 mg tablet RxNorm: 561207 Take 1 Tablet(s) Oral QID 02/27/20 021 Inactive cephalexin 500 mg tablet RxNorm: 184532 Take 1 Tablet(s) Oral QID 02/27/20 021 Inactive lisinopril 40 mg tablet RxNorm: 032226 Take 1 Tablet(s) Oral QD 02/11/20 023 Inactive Eliquis 5 mg tablet RxNorm: 8443176 Take 1 Tablet(s) Oral BID 01/05/20 022 Inactive Eliquis 5 mg tablet RxNorm: 3154099 Take 2 Tablet(s) Oral QD 01/01/20 021 Inactive Lyrica 50 mg capsule RxNorm: 926837 Take 1 Capsule(s) Oral QAM every morning 12/24/19 021 Inactive Lyrica 100 mg capsule RxNorm: 000131 Take 1 Capsule(s) Oral QHS every night at bedtime 12/24/19 021 Inactive clotrimazole 1 % topical cream RxNorm: 111599 Apply to right foot and toes Topical BID 12/04/19 21 023 Inactive metoprolol succinate ER 200 mg tablet,extended release 24 hr RxNorm: 861055 Take 1 Tablet(s) Oral QD 12/04/19 21 023 Inactive ciprofloxacin 500 mg tablet RxNorm: 519467 Take 1 Tablet(s) Oral QD 11/30/19 021 Inactive DX ofloxacin otic drops Accu-Chek Guide test strips RxNorm: USE 1 TO CHECK GLUCOSE 4 TIMES DAILY AND NEEDED 11/15/19 21 023 Inactive Blood Glucose Test strips RxNorm: Use 1 Test Strip QID at PRN 11/05/19 21 023 Inactive E11.42 lisinopril 30 mg tablet RxNorm: 722341 Take 1 Tablet(s) Oral QD 10/30/19 021 Inactive lisinopril 20 mg tablet RxNorm: 589281 Take 1 Tablet(s) Oral QD 10/23/19 021 Inactive lisinopril 20 mg tablet RxNorm: 874096 Take 1 Tablet(s) Oral QD 10/23/19 21 021 Inactive lisinopril 10 mg tablet RxNorm: 305606 Take 1 Tablet(s) Oral QD 10/02/19 021 Inactive icosapent ethyl 1 gram capsule RxNorm: 0534653 Take 2 Capsule(s) (2 gm) Oral BID with meals 09/12/19 022 Inactive Okay to dispense one 2gm tab if you have that available. icosapent ethyl 1 gram capsule RxNorm: 2908138 Take 2 Capsule(s) Oral BID 09/12/19 021 Inactive Okay to dispense one 2gm tab if you have that available. amlodipine 10 mg tablet RxNorm: 412560 Take 1 Tablet(s) Oral QD 09/04/19 022 Inactive aspirin 81 mg tablet,delayed release RxNorm: 816555 Take 1 Tablet(s) Oral QD 09/04/19 21 021 Inactive Levemir FlexTouch U-100 Insulin 100 unit/mL (3 mL) subcutaneous pen RxNorm: 027460 Inject 150 Unit(s) Subcutaneous BID 09/04/19 21 022 Inactive venlafaxine ER 150 mg tablet,extended release 24 hr RxNorm: 626538 Take 1 Tablet(s) Oral QD 09/04/19 21 021 Inactive clotrimazole-betame thasone 1 %-0.05 % topical cream RxNorm: 529939 Apply to rash on red area on left abdomen/chest Topical BID 08/10/19 Inactive amlodipine 5 mg tablet RxNorm: 748183 Take 1 Tablet(s) Oral QD 07/31/19 Inactive cephalexin 500 mg tablet RxNorm: 957069 Take 1 Tablet(s) Oral BID BID - Twice Daily 07/31/19 Inactive Start 08/01/20 pantoprazole 40 mg tablet,delayed release RxNorm: 121398 Take 1 Tablet(s) Oral QAM every morning 07/08/19 Inactive senna 8.6 mg tablet RxNorm: 557083 Take 1 Tablet(s) Oral QD 07/08/19 Inactive pravastatin 80 mg tablet RxNorm: 118016 Take 1 Tablet(s) Oral QHS every night at bedtime 07/08/19 Inactive carbamazepine 200 mg tablet RxNorm: 830966 Take 1 Tablet(s) Oral BID 07/08/19 022 Inactive clopidogrel 75 mg tablet RxNorm: 147988 Take 1 Tablet(s) Oral QD 07/08/19 Inactive Blood Glucose Test strips RxNorm: Use 1 Test Strip QID at PRN 07/08/19 Inactive E11.42 Novolog Flexpen U-100 Insulin aspart 100 unit/mL (3 mL) subcutaneous RxNorm: 1497842 Administer per sliding scale Milliliter(s) Subcutaneous TID 151-200: 10 u; 201-250: 20 u; 251-300: 30 u; 301-350: 40 u; 351-400: 50 u. 07/08/19 022 Inactive lisinopril 5 mg tablet RxNorm: 467343 Take 1 Tablet(s) Oral QD 07/08/19 021 Inactive Novolog Flexpen U-100 Insulin aspart 100 unit/mL (3 mL) subcutaneous RxNorm: 9212716 Inject 85 Unit(s) Subcutaneous TID 07/08/19 022 Inactive clotrimazole 1 % topical cream RxNorm: 987486 Apply to bilateral groin areas Topical BID 07/08/19 21 022 Inactive metoprolol succinate ER 200 mg tablet,extended release 24 hr RxNorm: 233776 Take 1 Tablet(s) Oral QD 07/08/19 21 021 Inactive Vitamin D3 25 mcg (1,000 unit) tablet RxNorm: 172510 Take 1 Tablet(s) Oral QD 07/08/19 021 Inactive isosorbide dinitrate 30 mg tablet RxNorm: 808193 Take 1 Tablet(s) Oral QD 07/08/19 021 Inactive Levemir FlexTouch U-100 Insulin 100 unit/mL (3 mL) subcutaneous pen RxNorm: 028127 Inject 140 Unit(s) Subcutaneous BID 07/08/19 021 Inactive torsemide 20 mg tablet RxNorm: 344982 Take 1 Tablet(s) Oral QD 07/08/19 023 Inactive venlafaxine 75 mg tablet RxNorm: 690396 Take 1 Tablet(s) Oral QD 07/08/19 021 Inactive acetaminophen 500 mg tablet RxNorm: 492883 Take 1 Tablet(s) Oral TID as needed for headache 06/18/19 021 Inactive acetaminophen 500 mg tablet RxNorm: 325405 Take 1 Tablet(s) Oral TID as needed for headache 06/18/19 021 Inactive Lyrica 100 mg capsule RxNorm: 043012 Take 1 Capsule(s) Oral QHS every night at bedtime 06/11/19 021 Inactive Lyrica 50 mg capsule RxNorm: 780729 Take 1 Capsule(s) Oral QAM every morning 06/10/19 21 021 Inactive hydrocortisone 2.5 % topical cream RxNorm: 647808 Apply to bilateral groin creases Topical BID 05/15/20 20 021 Inactive clotrimazole 1 % topical cream RxNorm: 791868 Apply to bilateral groin areas Topical BID 05/15/20 20 021 Inactive Lyrica 50 mg capsule RxNorm: 503163 Take 1 Capsule(s) Oral QAM every morning 05/14/20 20 Inactive Lyrica 100 mg capsule RxNorm: 739843 Take 1 Capsule(s) Oral QHS every night [...] Inactive Nystop 100,000 unit/gram topical powder RxNorm: 027106 Apply to abd folds, under breasts and L side of groin Topical BID x 14 days, then BID PRN 04/08/20 20 Inactive dx: yeast dermatitis Lyrica 100 mg capsule RxNorm: 149650 Take 1 Capsule(s) Oral QHS every night at bedtime 03/13/20 20 Inactive Lyrica 50 mg capsule RxNorm: 670534 Take 1 Capsule(s) Oral QAM every morning 03/13/20 20 Inactive ketoconazole 2 % shampoo RxNorm: 880597 Apply Topical two times a week with showers 03/11/20 20 Inactive cholecalciferol (vitamin D3) 50 mcg (2,000 unit) tablet RxNorm: 207120 Take 1 Tablet(s) Oral QD 03/11/20 20 021 Inactive Zetia 10 mg tablet RxNorm: 712590 Take 1 Tablet(s) Oral QD 03/07/20 20 021 Inactive Zetia 10 mg tablet RxNorm: 101027 Take 1 Tablet(s) Oral QD 03/07/20 20 Inactive Lyrica 50 mg capsule RxNorm: 785805 Take 1 Capsule(s) Oral QAM every morning 02/15/20 20 Inactive Lyrica 100 mg capsule RxNorm: 733204 Take 1 Capsule(s) Oral QHS every night at bedtime 02/15/20 Inactive Lyrica 100 mg capsule RxNorm: 449068 Take 1 Capsule(s) Oral QHS every night at bedtime 02/15/20 Inactive Lyrica 50 mg capsule RxNorm: 018023 Take 1 Capsule(s) Oral QAM every morning 02/15/20 Inactive polyethylene glycol 3350 17 gram/dose oral powder RxNorm: 647977 Take 17=1 capful Gram(s) Oral BID as needed mix with 4-8oz of liquid 06/12/2021 Activemetoprolol succinate ER 200 mg tablet,extended release 24 hrRxNorm: 730122 Take 1 Tablet(s) Oral QD08/11/2022ctiveloperamide 2 mg capsuleRxNorm: 301876 Take 1 Capsule(s) Oral QID as [id number]/12/2021ctivehydralazine 50 mg tablet RxNorm: 257746Rvnp 1 Tablet(s) Oral QID08/11/2022ctivevenlafaxine ER 75 mg capsule,extended release 24 hrRxNorm: 399369Pmpn 3 Capsule(s) Oral QD06/12/2021 02/01/2023Inactiveicosapent ethyl 1 gram capsuleRxNorm: 1116367Bovb 2 Capsule(s) (2 gm) Oral BID with meals/InactiveOkay to dispense one 2gm tab if you have that available.Levemir FlexTouch U-100 Insulin 100 unit/mL (3 mL) subcutaneous penRxNorm: 092050Ltgjem 80 Unit(s) Subcutaneous BID07/14/2022 07/12/2022InactiveNovolog Flexpen U-100 Insulin aspart 100 unit/mL (3 mL) subcutaneousRxNorm: 8884328Niutog 30 Unit(s) Subcutaneous TID with meals Inactive [...] Status Date Patient Education: Patient Medication Summary Ozsqrwzpb61/05/2023atient Education: Influenza HiyawimKuvakggre73/05/2023 Appointment: Sandra Clark WPtel: [address] [place], [place] [phone] [facility] Psych Follow Up12/09/2022ppointment: Rosalina Shirley WPtel: [address] [place], [place] [phone] [facility]Referral: [facility] WPtel: [address], [facility] [address] [id number] USReferralRecords Cyznaapt53/08/2023ppointment: Rosalina Shirley WPtel: [address] [phone] [place]/U008/11/2022ppointment: Rosalina Shirley WPtel: [address] [facility] [address] [id number] USF/U007/14/2022ppointment: Rosalina Shirley WPtel: [address] [facility] [address] [id number] USF/U02Referral: [facility] WPtel: [address] [facility] [address] [id number] OOMxwmnrjyNaclerdzh65/12/2022Referral: General CardiologyReferralCompleted 01/03/2021eferral: General PsychologistReferralClosed Instructions Comment Date Lenoid is [...] Sister Jyotsna involved in his care cell# [phone] Guardian: Don (rosalina met in person 09/01/21), now has Lexii (same group as don)Lab Schedule: * 02/08/2023
--- OUTSIDE RECORDS SUMMARY | 2023-04-01 08:34 | XMS_ITS | CCD ---
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 Name Role Phone Chelo Fonseca PA-C Primary Care Provider Unavaila ble Chelo Fonseca PA-C Chronic Care Management Nicole archer Summary Purpose DataExchange Insurance Providers Payer name Policy type / Coverage type Covered green party ID Effective Begin Date Effective End Date [place] Part [place] [id number] Unknown Unknown [place] Part B [id number] Unknown Unknown Family history Sister Brittany Suggs [...] Home 09/03/[address]: 3410999 Non-Smoker / No History of Smoking 09/02/[address]: 354774778 No Alcohol Consum ption 09/02/2020 Allergies, Adverse Reactions, Alerts Substance Reaction Codes Entered Date Inactivated Date Status LISINOPRIL RxNorm: 2936649No Inactive DateActiveMetformin [id number] Inactive DateActive Problems Condition Codes Effective Dates Condition St atus Annual physical exam ICD-10: Z00.00 ICD-9: V70.009/ctiveCoronary artery disease involving king salmon coronary artery of king salmon heart, angina presence unspecifiedICD-10: I25.10 ICD-9: 414.0109/ctiveEncounter [...] vascular disease)ICD-10: I73.9 ICD-9: 443.909/ctiveDepressionICD-10: F32.9 ICD-9: 98184/esolvedDVT (deep venous thrombosis)ICD-10: I82.409 ICD-9: 453.4009/2ResolvedEncounter for [...] L91.8 ICD-9: 701.911/ctiveCallus of heelICD-10: L84 ICD-9: 65234ctiveImpacted cerumen, left earICD-10: H61.22 ICD-9: 380.408/ctiveContact with [...] Z20.828 ICD-9: V01.7902esolvedHyperhidrosis of palmsICD-10: L74.512 ICD-9: 705.5640AaynczEqgaezofCaadgng99/28/2020ActiveDiabetes mellitus Type 5Woikdsg26/28/2020ActiveAnemia in chronic kidney diseaseICD-10: D63.1 02/12/2020ResolvedHyperlipidemia, unspecifiedICD-10: E78.509Resolved Medications Medication Codes Instructions Start Date Stop Date Status Fill Instructions pregabalin 150 mg capsule RxNorm: 783840 Take 1 Capsule(s) Oral HS at bed time 02/19/20 23 023 Inactive pregabalin 100 mg capsule RxNorm: 952336 Take 1 Capsule(s) Oral QAM every morning 02/18/20 23 024 Active FreeStyle Chema 2 Sensor kit RxNorm: use as directed 02/04/20 23 024 Active venlafaxine ER 75 mg capsule,extended release 24 hr RxNorm: 250709 Take 3 Capsule(s) Oral QD 02/04/20 023 Inactive FreeStyle Chema 2 Sensor kit RxNorm: use as directed 02/04/20 23 023 Inactive fluconazole 150 mg tablet RxNorm: 147993 Take 1 Tablet(s) Oral on day 3 and on day 6 02/03/20 23 024 Active chlorthalidone 25 mg tablet RxNorm: 184402 Take 1 Tablet(s) Oral QAM every morning 02/03/20 23 No Stop Date Active venlafaxine ER 150 mg capsule,extended release 24 hr RxNorm: 674532 Take 1 Capsule(s) Oral QD 02/03/20 23 023 Inactive acetaminophen 500 mg tablet RxNorm: 827520 1 TABLET ORALLY 3 TIMES DAILY (MAX APAP:4GM/24HR) 12/15/19 23 024 Active potassium chloride ER 20 mEq tablet,extended release RxNorm: 762317 Take 1 Tablet(s) Oral BID 12/09/19 23 023 Inactive d/c 20mEq once daily (sent from hospital) clotrimazole 1 % topical cream RxNorm: 832659 apply 1g topically to top of feet and in between toes BID 12/09/19 23 023 Inactive nystatin 100,000 unit/gram topical powder RxNorm: 554239 APPLY TO AFFECTED AREAS TOPICALLY 2 TIMES DAILY 11/21/19 23 024 Active Nystop 100,000 unit/gram topical powder RxNorm: 383603 Apply to abd folds, under breasts and L side of groin Topical BID x 14 days, then BID PRN 11/20/19 23 023 Inactive dx: yeast dermatitis Bengay Ultra Strength 4 %-30 %-10 % topical cream RxNorm: 774618 Apply 1 Gram(s) Topical QID PRN to feet and legs for neuropathic pain 11/11/19 23 024 Active hydrocortisone 2.5 % topical cream RxNorm: 924385 Apply 1/2 Gram(s) Topical BID as needed 11/10/19 23 No Stop Date Active clotrimazole 1 % topical cream RxNorm: 684341 Apply 1/2 Gram(s) Topical BID Apply to affected areas of groin, periarea, and abdominal topically 2 times daily 11/10/19 023 Inactive Levemir FlexPen 100 unit/mL (3 mL) solution subcutaneous insulin pen RxNorm: 736558 Inject 30 Unit(s) Subcutaneous BID 10/07/19 024 Active Humulin R U-500 (Concentrated) Insulin 500 unit/mL subcutaneous soln RxNorm: 714045 Inject 100 Unit(s) Subcutaneous TID 10/07/19 23 024 Active Ozempic 0.25 mg or 0.5 mg (2 mg/3 mL) subcutaneous pen injector RxNorm: 6022401 Inject 1/2 Milligram(s) Subcutaneous QW once a week 10/07/19 024 Active aripiprazole 15 mg tablet RxNorm: 014465 1/2 TAB (7.5MG) ORALLY DAILY (DX:MAJOR DEPRESSIVE DISORDER) 09/23/19 23 023 Inactive Lancets,Thin 28 gauge RxNorm: Use 1 as directed QID 09/15/19 23 024 Active Accu-Chek Guide test strips RxNorm: Use 1 Test Strip QID 09/15/19 23 023 Inactive ok to substitute with any covered alternative test strip torsemide 20 mg tablet RxNorm: 697673 Take 1 Tablet(s) Oral BID 09/09/19 23 024 Active d/c once daily dosing carvedilol 25 mg tablet RxNorm: 519135 Take 1 Tablet(s) Oral QD 08/25/19 23 024 Active pregabalin 150 mg capsule RxNorm: 513474 1 Capsule(s) Oral HS at bed time 08/18/19 23 023 Inactive pregabalin 100 mg capsule RxNorm: 240512 1 Capsule(s) Oral QAM every morning 08/18/19 23 023 Inactive carvedilol 25 mg tablet RxNorm: 743886 1 Tablet(s) Oral QD 07/28/19 23 023 Inactive lisinopril 20 mg tablet RxNorm: 615718 Give 1 Tablet(s) Oral QD 07/28/19 23 023 Inactive Lyrica 150 mg capsule RxNorm: 550637 Take 1 Capsule(s) Oral QHS every night at bedtime 07/19/19 23 023 Inactive d/c 100mg dose Diflucan 150 mg tablet RxNorm: 053044 Take 1 Tablet(s) Oral QD repeat on day 3 and 6 07/19/19 23 023 Inactive pregabalin 100 mg capsule RxNorm: 242628 Take 1 Capsule(s) Oral QAM every morning 07/19/19 23 023 Inactive gatifloxacin 0.5 % eye drops RxNorm: 172504 Instill 1 Drop(s) as directed TID Instill 1 drop in to affected eye(s) starting 1 day prior to surgery and continue until gone (do not exceed 4 weeks). 07/13/19 023 Inactive carvedilol 25 mg tablet RxNorm: 368491 2 Tablet(s) Oral BID 07/13/19 23 023 Inactive Humulin R Regular U-100 Insulin 100 unit/mL injection solution RxNorm: 450411 85 Unit(s) Injection TID 07/13/19 23 023 Inactive ketorolac 0.5 % eye drops RxNorm: 444902 Instill 1 Drop(s) as directed QID Instill 1 drop into affected eye(s) 4 times daily starting 1 day prior to surgery and continue until gone (do not exceed 4 weeks). 07/13/19 23 023 Inactive Diflucan 150 mg tablet RxNorm: 138366 Take 1 Tablet(s) Oral QD repeat on day 3 and 6 06/30/19 23 023 Inactive Accu-Chek Guide test strips RxNorm: Use 1 Test Strip QID Use 1 test strip to monitor blood glucose 4 times daily and as needed. Dx:E11.42. 06/23/19 023 Inactive ok to substitute with any covered alternative test strip dextromethorphan-gu aifenesin 10 mg-100 mg/5 mL oral liquid RxNorm: 220663 Take 10 Milliliter(s) Oral every 4 hours as needed for cough 06/19/19 023 Inactive dextromethorphan-gu aifenesin 10 mg-100 mg/5 mL oral liquid RxNorm: 652774 Take 10 Milliliter(s) Oral every 4 hours as needed for cough 06/19/19 023 Inactive Lyrica 150 mg capsule RxNorm: 223371 Take 1 Capsule(s) Oral QHS every night at bedtime 06/18/19 023 Inactive d/c 100mg dose aripiprazole 15 mg tablet RxNorm: 549111 1/2 TAB (7.5MG) ORALLY DAILY (DX:MAJOR DEPRESSIVE DISORDER) 06/05/19 23 023 Inactive pregabalin 100 mg capsule RxNorm: 272850 1 Capsule(s) Oral QAM every morning 06/02/19 023 Inactive Banophen 50 mg capsule RxNorm: 1365981 Take 1 Capsule(s) Oral Q6H every 6 hours as needed 05/19/19 23 No Stop Date Active Novolog Flexpen U-100 Insulin aspart 100 unit/mL (3 mL) subcutaneous RxNorm: 9751714 Inject 10 Unit(s) Subcutaneous QHS every night at bedtime with nighttime snack 04/08/20 22 022 Inactive Novolog Flexpen U-100 Insulin aspart 100 unit/mL (3 mL) subcutaneous RxNorm: 2689046 Inject 42 Unit(s) Subcutaneous TID in addition to sliding scale 04/08/20 22 022 Inactive d/c 36u albuterol sulfate HFA 90 mcg/actuation aerosol inhaler RxNorm: 4597182 Take 2 Puff(s) Inhalation Q4H every four hours as needed as needed for SOB, cough, or wheezing 04/07/20 030 Active Banophen 50 mg capsule RxNorm: 1595422 Take 1 Capsule(s) Oral Q6H every 6 hours as needed 04/06/20 023 Inactive diphenhydramine 50 mg tablet RxNorm: 0130868 Take 1 Tablet(s) Oral Q6H every 6 hours as needed 04/06/20 022 Inactive diphenhydramine 50 mg tablet RxNorm: 5564717 1 Tablet(s) Oral Q6H every 6 hours as needed 04/06/20 022 Inactive Abilify 15 mg tablet RxNorm: 422284 1/2 Tablet(s) Oral QD 03/10/20 023 Inactive Shingrix (PF) 50 mcg/0.5 mL intramuscular suspension, kit RxNorm: 8842735 Administer 1/2 Milliliter(s) Intramuscular QD one time shingrix step 2 ( step 1 given 11/04/21) WITH needle - Nursing please administer upon arrival and once administered post a bridge message with date of administration, galley hand, expiration date, and lot# so we can update [facility] 02/18/20 22 022 Inactive dispense with needle Shingrix (PF) 50 mcg/0.5 mL intramuscular suspension, kit RxNorm: 3571788 Administer 1/2 Milliliter(s) Intramuscular QD one time shingrix step 2 ( step 1 given 11/04/21) WITH needle - Nursing please administer upon arrival and once administered post a bridge message with date of administration, galley hand, expiration date, and lot# so we can update [facility] 02/18/20 22 022 Inactive dispense with needle polyethylene glycol 3350 17 gram/dose oral powder RxNorm: 903941 Take 17=1 capful Gram(s) Oral QD mix with 4-8oz of liquid 01/08/20 22 023 Inactive take this in addition to BID prn order Lyrica 100 mg capsule RxNorm: 229032 Take 1 Capsule(s) Oral QAM every morning 01/08/20 22 022 Inactive d/c 50mg dose acetaminophen 500 mg tablet RxNorm: 076658 Take 1 Tablet(s) Oral TID 01/08/20 22 022 Inactive d/c PRN order Lyrica 150 mg capsule RxNorm: 999139 Take 1 Capsule(s) Oral QHS every night at bedtime 01/08/20 22 023 Inactive d/c 100mg dose Abilify 5 mg tablet RxNorm: 734215 Take 1 Tablet(s) Oral QD take 1 tab po QD #30 refill 5 dx: MDD 12/12/19 22 022 Inactive Abilify 5 mg tablet RxNorm: 619533 Take 1 Tablet(s) Oral QD take 1 tab po QD #30 refill 5 dx: MDD 12/12/19 22 022 Inactive Novolog Flexpen U-100 Insulin aspart 100 unit/mL (3 mL) subcutaneous RxNorm: 5728103 Inject 42 Unit(s) Subcutaneous TID in addition to sliding scale 12/10/19 022 Inactive d/c 36u chlorthalidone 25 mg tablet RxNorm: 170316 Take 1 Tablet(s) Oral QAM every morning 12/10/19 023 Inactive pregabalin 50 mg capsule RxNorm: 054285 Take 1 Capsule(s) Oral QAM every morning 11/12/19 Inactive tetanus-diphtheria toxoids-Td 2 Lf unit-2 Lf unit/0.5 mL IM suspension RxNorm: 139 Take 0.5 Miscellaneous Intramuscular 11/12/19 022 Inactive need tdap - nursing to administer upon arrival pregabalin 50 mg capsule RxNorm: 009673 Take 1 Capsule(s) Oral QAM every morning 10/16/19 022 Inactive pregabalin 50 mg capsule RxNorm: 490064 Take 1 Capsule(s) Oral QAM every morning 10/16/19 22 022 Inactive pregabalin 50 mg capsule RxNorm: 877226 1 Capsule(s) Oral QAM every morning 10/15/19 22 022 Inactive Shingrix (PF) 50 mcg/0.5 mL intramuscular suspension, kit RxNorm: 5171947 Administer 1/2 Milliliter(s) Intramuscular one time Nursing please administer upon arrival and once administered post a bridge message with date of administration, galley hand, expiration date, and lot# so we can update [facility]. 10/09/19 22 022 Inactive shingrix step 1 Shingrix (PF) 50 mcg/0.5 mL intramuscular suspension, kit RxNorm: 6399993 Administer 1/2 Milliliter(s) Intramuscular one time Nursing please administer upon arrival and once administered post a bridge message with date of administration, galley hand, expiration date, and lot# so we can update [facility]. 10/09/19 22 022 Inactive shingrix step 1 cholecalciferol (vitamin D3) 1,250 mcg (50,000 unit) capsule RxNorm: 530926 Take 1 Capsule(s) Oral QW once a [...] aspart 100 unit/mL (3 mL) subcutaneous RxNorm: 1630130 Inject 10 Unit(s) Subcutaneous QHS every night at bedtime with nighttime snack 10/08/19 22 022 Inactive Shingrix (PF) 50 mcg/0.5 mL intramuscular suspension, kit RxNorm: 9402257 ADMINISTER 2-DOSE SERIES PER CDC GUIDELINES 10/08/19 22 022 Active Shingrix (PF) 50 mcg/0.5 mL intramuscular suspension, kit RxNorm: 8313716 ADMINISTER 2-DOSE SERIES PER CDC GUIDELINES 10/08/19 22 022 Inactive Novolog Flexpen U-100 Insulin aspart 100 unit/mL (3 mL) subcutaneous RxNorm: 0579579 Inject 36 Unit(s) Subcutaneous TID in addition to sliding scale 10/08/19 22 Inactive Novofine Autocover 30 gauge x 1/3 needle RxNorm: Use 1 Miscellaneous UD as directed Use 1 needle as directed to administer insulin 5 times a day Dx:E11.42. 10/03/19 22 Inactive ok to substitute with any covered alternative pen needle benzoyl peroxide 10 % topical cleanser RxNorm: 089874 Apply 1 Application Topical QD apply to face, wash rinse and dry once daily (may change to QOD if drying) 08/19/19 022 Inactive (%covered by insurance) #60ml refill 11 dx: acne benzoyl peroxide 10 % topical cleanser RxNorm: 967722 Apply 1 Application Topical QD apply to face, wash rinse and dry once daily (may change to QOD if drying) 08/19/19 022 Inactive (%covered by insurance) #60ml refill 11 dx: acne benzoyl peroxide 10 % topical cleanser RxNorm: 797882 Apply 1 Application Topical QD apply to face, wash rinse and dry once daily (may change to QOD if drying) 08/19/19 022 Inactive (%covered by insurance) #60ml refill 11 dx: acne Lyrica 50 mg capsule RxNorm: 307673 Take 1 Capsule(s) Oral QAM every morning Take 1 capsule by mouth once daily 08/19/19 22 022 Inactive benzoyl peroxide 10 % topical cleanser RxNorm: 423724 Apply 1 Application Topical QD apply to face, wash rinse and dry once daily (may change to QOD if drying) 08/19/19 022 Inactive (%covered by insurance) #60ml refill 11 dx: acne Lyrica 100 mg capsule RxNorm: 697889 Take 1 Capsule(s) Oral QHS every night at bedtime Take 1 capsule by mouth once daily at bedtime 08/19/19 22 022 Inactive Lyrica 100 mg capsule RxNorm: 841737 Take 1 Capsule(s) Oral QHS every night at bedtime Take 1 capsule by mouth once daily at bedtime 08/16/19 22 022 Inactive Lyrica 50 mg capsule RxNorm: 655134 Take 1 Capsule(s) Oral QAM every morning Take 1 capsule by mouth once daily 08/16/19 22 022 Inactive Levemir FlexTouch U-100 Insulin 100 unit/mL (3 mL) subcutaneous pen RxNorm: 476786 Inject 86 Unit(s) Subcutaneous BID 08/05/19 22 022 Inactive d/c 83units BID Lyrica 100 mg capsule RxNorm: 545330 Take 1 Capsule(s) Oral QHS every night at bedtime Take 1 capsule by mouth once daily at bedtime 07/14/19 22 022 Inactive Lyrica 50 mg capsule RxNorm: 207273 Take 1 Capsule(s) Oral QAM every morning Take 1 capsule by mouth once daily 07/14/19 22 022 Inactive Levemir FlexTouch U-100 Insulin 100 unit/mL (3 mL) subcutaneous pen RxNorm: 026543 Inject 83 Unit(s) Subcutaneous BID 07/08/19 22 [...] 30 mg tablet,extended release 24 hr RxNorm: 625808 Take 1 Tablet(s) Oral QD 05/05/20 No Stop Date Active hydralazine 50 mg tablet RxNorm: 507703 Take 1 Tablet(s) Oral QID 05/05/20 21 022 Inactive venlafaxine ER 225 mg tablet,extended release 24 hr RxNorm: 283459 Take 1 Tablet(s) Oral QD 05/05/20 Inactive venlafaxine ER 225 mg tablet,extended release 24 hr RxNorm: 392063 Take 1 Tablet(s) Oral QD 05/05/20 022 Inactive hydralazine 50 mg tablet RxNorm: 345610 Take 1 Tablet(s) Oral QID 05/05/20 Inactive aspirin 81 mg tablet,delayed release RxNorm: 268020 Take 1 Tablet(s) Oral QD 03/31/20 Inactive Zetia 10 mg tablet RxNorm: 601691 Take 1 Tablet(s) Oral QD 03/31/20 Inactive Vitamin D2 1,250 mcg (50,000 unit) capsule RxNorm: 6329280 Take 1 Capsule(s) Oral QW once a week x 12 weeks 03/31/20 Inactive Vitamin D2 1,250 mcg (50,000 unit) capsule RxNorm: 8073807 Take 1 Capsule(s) Oral QW once a week 03/31/20 Inactive Zetia 10 mg tablet RxNorm: 448261 Take 1 Tablet(s) Oral QD 11/15/20 21 11/15/2 021 Inactive hydralazine 25 mg tablet RxNorm: 656544 Take 1 Tablet(s) Oral QID 03/31/20 021 Inactive hydralazine 25 mg tablet RxNorm: 442161 Take 1 Tablet(s) Oral QID 03/31/20 021 Inactive hydralazine 10 mg tablet RxNorm: 882480 Take 1 Tablet(s) Oral QID 03/03/20 021 Inactive cephalexin 500 mg tablet RxNorm: 070235 Take 1 Tablet(s) Oral QID 02/27/20 021 Inactive cephalexin 500 mg tablet RxNorm: 665197 Take 1 Tablet(s) Oral QID 02/27/20 021 Inactive lisinopril 40 mg tablet RxNorm: 481315 Take 1 Tablet(s) Oral QD 02/11/20 023 Inactive Eliquis 5 mg tablet RxNorm: 8592807 Take 1 Tablet(s) Oral BID 01/05/20 022 Inactive Eliquis 5 mg tablet RxNorm: 4029426 Take 2 Tablet(s) Oral QD 01/01/20 21 021 Inactive Lyrica 50 mg capsule RxNorm: 689063 Take 1 Capsule(s) Oral QAM every morning 12/24/19 21 021 Inactive Lyrica 100 mg capsule RxNorm: 923317 Take 1 Capsule(s) Oral QHS every night at bedtime 12/24/19 21 021 Inactive clotrimazole 1 % topical cream RxNorm: 475275 Apply to right foot and toes Topical BID 12/04/19 21 023 Inactive metoprolol succinate ER 200 mg tablet,extended release 24 hr RxNorm: 479029 Take 1 Tablet(s) Oral QD 12/04/19 21 023 Inactive ciprofloxacin 500 mg tablet RxNorm: 865208 Take 1 Tablet(s) Oral QD 11/30/19 21 021 Inactive DX ofloxacin otic drops Accu-Chek Guide test strips RxNorm: USE 1 TO CHECK GLUCOSE 4 TIMES DAILY AND NEEDED 11/15/19 21 023 Inactive Blood Glucose Test strips RxNorm: Use 1 Test Strip QID at PRN 11/05/19 21 023 Inactive E11.42 lisinopril 30 mg tablet RxNorm: 876012 Take 1 Tablet(s) Oral QD 10/30/19 021 Inactive lisinopril 20 mg tablet RxNorm: 844986 Take 1 Tablet(s) Oral QD 10/23/19 021 Inactive lisinopril 20 mg tablet RxNorm: 329121 Take 1 Tablet(s) Oral QD 10/23/19 21 021 Inactive lisinopril 10 mg tablet RxNorm: 403316 Take 1 Tablet(s) Oral QD 10/02/19 021 Inactive icosapent ethyl 1 gram capsule RxNorm: 7772567 Take 2 Capsule(s) (2 gm) Oral BID with meals 09/12/19 022 Inactive Okay to dispense one 2gm tab if you have that available. icosapent ethyl 1 gram capsule RxNorm: 6207499 Take 2 Capsule(s) Oral BID 09/12/19 21 021 Inactive Okay to dispense one 2gm tab if you have that available. amlodipine 10 mg tablet RxNorm: 207170 Take 1 Tablet(s) Oral QD 09/04/19 022 Inactive aspirin 81 mg tablet,delayed release RxNorm: 201660 Take 1 Tablet(s) Oral QD 09/04/19 21 021 Inactive Levemir FlexTouch U-100 Insulin 100 unit/mL (3 mL) subcutaneous pen RxNorm: 172288 Inject 150 Unit(s) Subcutaneous BID 09/04/19 21 022 Inactive venlafaxine ER 150 mg tablet,extended release 24 hr RxNorm: 476786 Take 1 Tablet(s) Oral QD 09/04/19 21 021 Inactive clotrimazole-betame thasone 1 %-0.05 % topical cream RxNorm: 312360 Apply to rash on red area on left abdomen/chest Topical BID 08/10/19 21 021 Inactive amlodipine 5 mg tablet RxNorm: 056699 Take 1 Tablet(s) Oral QD 07/31/19 Inactive cephalexin 500 mg tablet RxNorm: 913956 Take 1 Tablet(s) Oral BID BID - Twice Daily 07/31/19 21 021 Inactive Start 08/01/20 pantoprazole 40 mg tablet,delayed release RxNorm: 880468 Take 1 Tablet(s) Oral QAM every morning 07/08/19 Inactive senna 8.6 mg tablet RxNorm: 427370 Take 1 Tablet(s) Oral QD 07/08/19 Inactive pravastatin 80 mg tablet RxNorm: 720844 Take 1 Tablet(s) Oral QHS every night at bedtime 07/08/19 Inactive carbamazepine 200 mg tablet RxNorm: 600659 Take 1 Tablet(s) Oral BID 07/08/19 Inactive clopidogrel 75 mg tablet RxNorm: 130816 Take 1 Tablet(s) Oral QD 07/08/19 021 Inactive Blood Glucose Test strips RxNorm: Use 1 Test Strip QID at PRN 07/08/19 Inactive E11.42 Novolog Flexpen U-100 Insulin aspart 100 unit/mL (3 mL) subcutaneous RxNorm: 1052558 Administer per sliding scale Milliliter(s) Subcutaneous TID 151-200: 10 u; 201-250: 20 u; 251-300: 30 u; 301-350: 40 u; 351-400: 50 u. 07/08/19 022 Inactive lisinopril 5 mg tablet RxNorm: 799924 Take 1 Tablet(s) Oral QD 07/08/19 021 Inactive Novolog Flexpen U-100 Insulin aspart 100 unit/mL (3 mL) subcutaneous RxNorm: 0162448 Inject 85 Unit(s) Subcutaneous TID 07/08/19 Inactive clotrimazole 1 % topical cream RxNorm: 194744 Apply to bilateral groin areas Topical BID 07/08/19 022 Inactive metoprolol succinate ER 200 mg tablet,extended release 24 hr RxNorm: 382748 Take 1 Tablet(s) Oral QD 07/08/19 021 Inactive Vitamin D3 25 mcg (1,000 unit) tablet RxNorm: 422831 Take 1 Tablet(s) Oral QD 07/08/19 021 Inactive isosorbide dinitrate 30 mg tablet RxNorm: 391193 Take 1 Tablet(s) Oral QD 07/08/19 021 Inactive Levemir FlexTouch U-100 Insulin 100 unit/mL (3 mL) subcutaneous pen RxNorm: 778746 Inject 140 Unit(s) Subcutaneous BID 07/08/19 021 Inactive torsemide 20 mg tablet RxNorm: 078083 Take 1 Tablet(s) Oral QD 07/08/19 023 Inactive venlafaxine 75 mg tablet RxNorm: 208984 Take 1 Tablet(s) Oral QD 07/08/19 021 Inactive acetaminophen 500 mg tablet RxNorm: 164780 Take 1 Tablet(s) Oral TID as needed for headache 06/18/19 021 Inactive acetaminophen 500 mg tablet RxNorm: 279590 Take 1 Tablet(s) Oral TID as needed for headache 06/18/19 021 Inactive Lyrica 100 mg capsule RxNorm: 243066 Take 1 Capsule(s) Oral QHS every night at bedtime 06/11/19 021 Inactive Lyrica 50 mg capsule RxNorm: 004773 Take 1 Capsule(s) Oral QAM every morning 06/10/19 021 Inactive hydrocortisone 2.5 % topical cream RxNorm: 902067 Apply to bilateral groin creases Topical BID 05/15/20 20 021 Inactive clotrimazole 1 % topical cream RxNorm: 277612 Apply to bilateral groin areas Topical BID 05/15/20 20 021 Inactive Lyrica 50 mg capsule RxNorm: 744174 Take 1 Capsule(s) Oral QAM every morning 05/14/20 20 020 Inactive Lyrica 100 mg capsule RxNorm: 181218 Take 1 Capsule(s) Oral QHS every night [...] Inactive Nystop 100,000 unit/gram topical powder RxNorm: 738957 Apply to abd folds, under breasts and L side of groin Topical BID x 14 days, then BID PRN 04/08/20 20 Inactive dx: yeast dermatitis Lyrica 100 mg capsule RxNorm: 811315 Take 1 Capsule(s) Oral QHS every night at bedtime 03/13/20 20 Inactive Lyrica 50 mg capsule RxNorm: 349808 Take 1 Capsule(s) Oral QAM every morning 03/13/20 20 Inactive ketoconazole 2 % shampoo RxNorm: 260365 Apply Topical two times a week with showers 03/11/20 20 Inactive cholecalciferol (vitamin D3) 50 mcg (2,000 unit) tablet RxNorm: 864702 Take 1 Tablet(s) Oral QD 03/11/20 20 021 Inactive Zetia 10 mg tablet RxNorm: 612905 Take 1 Tablet(s) Oral QD 03/07/20 20 021 Inactive Zetia 10 mg tablet RxNorm: 275217 Take 1 Tablet(s) Oral QD 03/07/20 20 Inactive Lyrica 50 mg capsule RxNorm: 430077 Take 1 Capsule(s) Oral QAM every morning 02/15/20 20 Inactive Lyrica 100 mg capsule RxNorm: 579271 Take 1 Capsule(s) Oral QHS every night at bedtime 02/15/20 Inactive Lyrica 100 mg capsule RxNorm: 594677 Take 1 Capsule(s) Oral QHS every night at bedtime 02/15/20 20 Inactive Lyrica 50 mg capsule RxNorm: 389310 Take 1 Capsule(s) Oral QAM every morning 02/15/20 20 Inactive polyethylene glycol 3350 17 gram/dose oral powder RxNorm: 183630 Take 17=1 capful Gram(s) Oral BID as needed mix with 4-8oz of liquid 06/12/2021 Activemetoprolol succinate ER 200 mg tablet,extended release 24 hrRxNorm: 645128 Take 1 Tablet(s) Oral QD08/11/2022ctiveloperamide 2 mg capsuleRxNorm: 052009 Take 1 Capsule(s) Oral QID as nkoqdx3006/12/2021ctivehydralazine 50 mg tablet RxNorm: 663578Hntf 1 Tablet(s) Oral QID08/11/2022ctivevenlafaxine ER 75 mg capsule,extended release 24 hrRxNorm: 335129Btmg 3 Capsule(s) Oral QD06/12/2021 02/01/2023Inactiveicosapent ethyl 1 gram capsuleRxNorm: 0409174Rkoh 2 Capsule(s) (2 gm) Oral BID with meals/InactiveOkay to dispense one 2gm tab if you have that available.Levemir FlexTouch U-100 Insulin 100 unit/mL (3 mL) subcutaneous penRxNorm: 490652Jomusa 80 Unit(s) Subcutaneous BID07/14/2022 07/12/2022InactiveNovolog Flexpen U-100 Insulin aspart 100 unit/mL (3 mL) subcutaneousRxNorm: 3200757Jyntvd 30 Unit(s) Subcutaneous TID with meals /Inactive Medication Administered No Medication Administered data Reason For Visit No Reason For Visit data Plan of Care Planned Activity Notes Codes Status Date Referral: [facility] WPtel: [address], [address] [id number] USReferralRecords Tgnopaom52/08/2023Referral: [facility] WPtel: [address] [id number] [id number]/12/2022Referral: General CardiologyReferralCompleted 1Referral: General PsychologistReferralClosedReferral: General PsychiatristReferralNeed Additional Information From Field Instructions Comment Date Leonid is a Male [...] Sister Jyotsna involved in his care cell# [phone] Guardian: Don (tapan met in person 09/01/21), now has Lexii (same group as don)Lab Schedule: * 02/08/2023
--- OUTSIDE RECORDS SUMMARY | 2023-04-01 08:35 | XMS_ITS | CCD ---
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 1 Capsule(s) Oral QAM every morning 06/10/19 21 Inactive hydrocortisone 2.5 % topical cream RxNorm: 657348 Apply to bilateral groin creases Topical BID 05/15/20 20 Inactive clotrimazole 1 % topical cream RxNorm: 692792 Apply to bilateral groin areas Topical BID 05/15/20 20 Inactive Lyrica 50 mg capsule RxNorm: 699972 Take 1 Capsule(s) Oral QAM every morning 05/14/20 20 Inactive Lyrica 100 mg capsule RxNorm: 929807 Take 1 Capsule(s) Oral QHS every night [...] Inactive Nystop 100,000 unit/gram topical powder RxNorm: 627771 Apply to abd folds, under breasts and L side of groin Topical BID x 14 days, then BID PRN 04/08/20 20 020 Inactive dx: yeast dermatitis Lyrica 100 mg capsule RxNorm: 772134 Take 1 Capsule(s) Oral QHS every night at bedtime 03/13/20 20 Inactive Lyrica 50 mg capsule RxNorm: 869422 Take 1 Capsule(s) Oral QAM every morning 03/13/20 20 Inactive ketoconazole 2 % shampoo RxNorm: 726523 Apply Topical two times a week with showers 03/11/20 20 Inactive cholecalciferol (vitamin D3) 50 mcg (2,000 unit) tablet RxNorm: 846586 Take 1 Tablet(s) Oral QD 03/11/20 Inactive Zetia 10 mg tablet RxNorm: 680950 Take 1 Tablet(s) Oral QD 03/07/20 20 Inactive Zetia 10 mg tablet RxNorm: 776485 Take 1 Tablet(s) Oral QD 03/07/20 20 Inactive Lyrica 50 mg capsule RxNorm: 953263 Take 1 Capsule(s) Oral QAM every morning 02/15/20 20 Inactive Lyrica 100 mg capsule RxNorm: 807618 Take 1 Capsule(s) Oral QHS every night at bedtime 02/15/20 20 Inactive Lyrica 100 mg capsule RxNorm: 644175 Take 1 Capsule(s) Oral QHS every night at bedtime 02/15/20 Inactive Lyrica 50 mg capsule RxNorm: 920277 Take 1 Capsule(s) Oral QAM every morning 02/15/20 20 Inactive polyethylene glycol 3350 17 gram/dose oral powder RxNorm: 138056 Take 17=1 capful Gram(s) Oral BID as needed mix with 4-8oz of liquid 06/12/2021 Activemetoprolol succinate ER 200 mg tablet,extended release 24 hrRxNorm: 474383 Take 1 Tablet(s) Oral QD08/11/2022ctiveloperamide 2 mg capsuleRxNorm: 422763 Take 1 Capsule(s) Oral QID as bklimc4306/12/2021ctivehydralazine 50 mg tablet RxNorm: 965581Oiff 1 Tablet(s) Oral QID08/11/2022ctivevenlafaxine ER 75 mg capsule,extended release 24 hrRxNorm: 886685Ctts 3 Capsule(s) Oral QD06/12/2021 02/01/2023Inactiveicosapent ethyl 1 gram capsuleRxNorm: 0627760Ursa 2 Capsule(s) (2 gm) Oral BID with mealsInactiveOkay to dispense one 2gm tab if you have that available.Levemir FlexTouch U-100 Insulin 100 unit/mL (3 mL) subcutaneous penRxNorm: 021432Ugcrrm 80 Unit(s) Subcutaneous BID07/14/2022 07/12/2022InactiveNovolog Flexpen U-100 Insulin aspart 100 unit/mL (3 mL) subcutaneousRxNorm: 0777800Yaaieh 30 Unit(s) Subcutaneous TID with meals Inactive Medication Administered No Medication Administered data Reason For Visit No Reason For Visit data Plan of Care Planned Activity Notes Codes Status Date Patient Education: Patient Medication Summary Uljotdwdd23/18/2023ppointment: Sandra Clark WPtel: [address] [facility] [address] [id number] [facility] Follow Up12/09/2022ppointment: Rosalina Shirley WPtel: [address] [facility] 300 [id number] USTCM10/26/2022Referral: [facility] WPtel: [address], [address] [id number] USReferralRecords Yexcfaik23/08/2023ppointment: Rosalina Shirley WPtel: [address] [facility] 300 [id number] USF/U008/11/2022ppointment: Rosalina Shirley WPtel: [address] [facility] 300 [id number] USF/U007/14/2022ppointment: Rosalina Shirley WPtel: [address] [facility] 300 [id number] USF/U002/10/2022eferral: [facility] WPtel: [address] [id number] HAXelsezqeWxawqfntu39/12/2022Referral: General CardiologyReferralCompleted 1Referral: General PsychologistReferralClosedReferral: General PsychiatristReferralNeed Additional Information From Field Instructions Comment Date Leonid is a Male being seen living at [facility]. Initial [facility] visit 01/2020. PMHx including DMII, CAD w/ 5 stents, Depression, Seizure Disorder and CKD stage 3. He moved into [facility] in 12/2019 but after a hospitalization 05/2021 he moved to the [facility] to have closer nursing attention. Sister Jyotsna involved in his care cell# [phone] Guardian: Don (rosalina met in person 09/01/21), now has Lexii (same group as don)Lab Schedule: * 02/08/2023
--- OUTSIDE RECORDS SUMMARY | 2023-04-01 08:35 | XMS_ITS | CCD ---
Author Name Chelo Fonseca PA-C Address [address] [place] [address] Phone Organization [facility] Phone Care Team Providers Care Mud Boss Name Role Phone Chelo Fonseca PA-C Primary Care Provider Unavaila ble Chelo Fonseca PA-C Chronic Care Management Unavai labcal Summary Purpose DataExchange Insurance Providers Payer name Policy type / Coverage type Covered green party ID Effective Begin Date Effective End Date Medicare [place] Medicare Part B [id number] Unknown Unknown Medicaid [place] Medicare Part B [id number] Unknown Unknown Family history Sister Brittany Suggs [...] Unknown Intermediate 09/03/[address]: 9205512 Non-Smoker / No History of Smoking 09/02/[address]: 991660161 No Alcohol Consum ption 09/02/2020 Allergies, Adverse Reactions, Alerts Substance Reaction Codes Entered Date Inactivated Date Status LISINOPRIL RxNorm: 3307095No Inactive DateActiveMetformin WAjOpzvbss75/28/2020No Inactive DateActive Problems Condition Codes Effective Dates Condition St atus Coronary artery disease invo lving teller coronary artery of teller heart, angina presence unspecified ICD-10: I25.10 ICD-9: 414.011ctiveHyperlipidemia associated with type 2 diabetes mellitusICD-10: E11.69 ICD-9: 250.8010ctiveStage 2 chronic 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ICD-10: E11.22 ICD-9: 250.4010/ctiveType 2 diabetes mellitus with diabetic polyneuropathy, with long-term current use of insulinICD-10: E11.42 ICD-9: 250.6010/ctiveAnnual physical examICD-10: Z00.00 ICD-9: V70.009/ctiveEncounter for other specified special examinations ICD-10: Z01.89 ICD-9: V72.8509/ctiveEncounter for screening for nutritional disorder ICD-10: Z13.21 ICD-9: V77.9909/ctiveOther correction (current) drug therapyICD-10: Z79.899 ICD-9: V58.6909/ctiveHypertensive heart disease without heart failure ICD-10: I11.9 [...] 786.0511/ctiveSeizure disorderICD-10: G40.909 ICD-9: 345.9011ctiveCellulitisICD-10: L03.90 ICD-9: 682.910/ctiveReducible umbilical herniaICD-10: K42.9 ICD-9: 553.110/ctiveBMI 60.0-69.9, adultICD-10: Z68.44 ICD-9: V85.4410/ctiveInappropriate sexual behaviorICD-10: Z72.89 ICD-9: 312.8910/ctiveHx of deep venous thrombosisICD-10: Z86.718 ICD-9: V12.5109/ctiveHypercoagulable stateICD-10: D68.59 ICD-9: 289.8109ctivePVD (peripheral vascular disease)ICD-10: I73.9 ICD-9: 443.9092ActiveDepressionICD-10: F32.9 ICD-9: 33843/esolvedDVT (deep venous thrombosis)ICD-10: I82.409 ICD-9: 453.4009esolvedEncounter for immunizationICD-10: Z23 ICD-9: V03.8909/esolvedLong term (current) use of insulinICD-10: Z79.4 02/10/2022esolvedMuscular painICD-10: M79.10 ICD-9: 729.109/2ResolvedDandruff in adultICD-10: L21.0 ICD-9: 690.1808ctiveHypertension associated with diabetesICD-10: E11.59 ICD-9: 250.8008esolvedHistory of anemia due to CKDICD-10: N18.9 ICD-9: 585.9072ActiveStage 2 chronic kidney diseaseICD-10: N18.2 ICD-9: 585.207/2ActiveGout due to renal impairmentICD-10: M10.30 ICD-9: 274.1006ctiveLearning disabilityICD-10: F81.9 ICD-9: 315.212ctiveSkin tagICD-10: L91.8 ICD-9: 701.911/ctiveCallus of heelICD-10: L84 ICD-9: 41774ctiveImpacted cerumen, left earICD-10: H61.22 ICD-9: 380.408/ctiveContact with [...] Z20.828 ICD-9: V01.7902esolvedHyperhidrosis of palmsICD-10: L74.512 ICD-9: 705.0419CzlbomKgibprohKlvnynw92/28/2020ActiveDiabetes mellitus Type 1Qtizfql80/28/2020ActiveAnemia in chronic kidney diseaseICD-10: D63.1 02/12/2020ResolvedHyperlipidemia, unspecifiedICD-10: E78.Resolved Medications Medication Codes Instructions Start Date Stop Date Status Fill Instructions rosuvastatin 20 mg tablet RxNorm: 866172 Take 1 Tablet(s) Oral QD 02/26/20 23 024 Active d/c pravastatin 80mg Ozempic 1 mg/dose (4 mg/3 mL) subcutaneous pen injector RxNorm: 4232644 Inject 1 Milligram(s) Subcutaneous QW once a week 02/20/20 23 023 Inactive pregabalin 150 mg capsule RxNorm: 317226 Take 1 Capsule(s) Oral HS at bed time 02/19/20 23 023 Inactive pregabalin 100 mg capsule RxNorm: 939936 Take 1 Capsule(s) Oral QAM every morning 02/18/20 23 024 Active FreeStyle Chema 2 Sensor kit RxNorm: use as directed 02/04/20 23 024 Active venlafaxine ER 75 mg capsule,extended release 24 hr RxNorm: 357233 Take 3 Capsule(s) Oral QD 02/04/20 23 023 Inactive FreeStyle Chema 2 Sensor kit RxNorm: use as directed 02/04/20 23 023 Inactive fluconazole 150 mg tablet RxNorm: 727917 Take 1 Tablet(s) Oral on day 3 and on day 6 02/03/20 23 024 Active chlorthalidone 25 mg tablet RxNorm: 076677 Take 1 Tablet(s) Oral QAM every morning 02/03/20 23 No Stop Date Active venlafaxine ER 150 mg capsule,extended release 24 hr RxNorm: 980813 Take 1 Capsule(s) Oral QD 02/03/20 23 023 Inactive acetaminophen 500 mg tablet RxNorm: 303258 1 TABLET ORALLY 3 TIMES DAILY (MAX APAP:4GM/24HR) 12/15/19 23 024 Active potassium chloride ER 20 mEq tablet,extended release RxNorm: 241531 Take 1 Tablet(s) Oral BID 12/09/19 023 Inactive d/c 20mEq once daily (sent from hospital) clotrimazole 1 % topical cream RxNorm: 343053 apply 1g topically to top of feet and in between toes BID 12/09/19 023 Inactive nystatin 100,000 unit/gram topical powder RxNorm: 775172 APPLY TO AFFECTED AREAS TOPICALLY 2 TIMES DAILY 11/21/19 024 Active Nystop 100,000 unit/gram topical powder RxNorm: 652604 Apply to abd folds, under breasts and L side of groin Topical BID x 14 days, then BID PRN 11/20/19 023 Inactive dx: yeast dermatitis Bengay Ultra Strength 4 %-30 %-10 % topical cream RxNorm: 518949 Apply 1 Gram(s) Topical QID PRN to feet and legs for neuropathic pain 11/11/19 024 Active hydrocortisone 2.5 % topical cream RxNorm: 035063 Apply 1/2 Gram(s) Topical BID as needed 11/10/19 No Stop Date Active clotrimazole 1 % topical cream RxNorm: 787050 Apply 1/2 Gram(s) Topical BID Apply to affected areas of groin, periarea, and abdominal topically 2 times daily 11/10/19 023 Inactive Levemir FlexPen 100 unit/mL (3 mL) solution subcutaneous insulin pen RxNorm: 072384 Inject 30 Unit(s) Subcutaneous BID 10/07/19 024 Active Humulin R U-500 (Concentrated) Insulin 500 unit/mL subcutaneous soln RxNorm: 404973 Inject 100 Unit(s) Subcutaneous TID 10/07/19 024 Active Ozempic 0.25 mg or 0.5 mg (2 mg/3 mL) subcutaneous pen injector RxNorm: 9759193 Inject 1/2 Milligram(s) Subcutaneous QW once a week 10/07/19 024 Active aripiprazole 15 mg tablet RxNorm: 391212 1/2 TAB (7.5MG) ORALLY DAILY (DX:MAJOR DEPRESSIVE DISORDER) 09/23/19 23 023 Inactive Lancets,Thin 28 gauge RxNorm: Use 1 as directed QID 09/15/19 23 024 Active Accu-Chek Guide test strips RxNorm: Use 1 Test Strip QID 09/15/19 23 023 Inactive ok to substitute with any covered alternative test strip torsemide 20 mg tablet RxNorm: 333939 Take 1 Tablet(s) Oral BID 09/09/19 23 024 Active d/c once daily dosing carvedilol 25 mg tablet RxNorm: 194023 Take 1 Tablet(s) Oral QD 08/25/19 23 024 Active pregabalin 150 mg capsule RxNorm: 808479 1 Capsule(s) Oral HS at bed time 08/18/19 23 023 Inactive pregabalin 100 mg capsule RxNorm: 340202 1 Capsule(s) Oral QAM every morning 08/18/19 23 023 Inactive carvedilol 25 mg tablet RxNorm: 473329 1 Tablet(s) Oral QD 07/28/19 23 023 Inactive lisinopril 20 mg tablet RxNorm: 952156 Give 1 Tablet(s) Oral QD 07/28/19 23 023 Inactive Lyrica 150 mg capsule RxNorm: 058311 Take 1 Capsule(s) Oral QHS every night at bedtime 07/19/19 023 Inactive d/c 100mg dose Diflucan 150 mg tablet RxNorm: 417640 Take 1 Tablet(s) Oral QD repeat on day 3 and 6 07/19/19 23 023 Inactive pregabalin 100 mg capsule RxNorm: 023529 Take 1 Capsule(s) Oral QAM every morning 07/19/19 23 023 Inactive gatifloxacin 0.5 % eye drops RxNorm: 685520 Instill 1 Drop(s) as directed TID Instill 1 drop in to affected eye(s) starting 1 day prior to surgery and continue until gone (do not exceed 4 weeks). 07/13/19 23 023 Inactive carvedilol 25 mg tablet RxNorm: 702968 2 Tablet(s) Oral BID 07/13/19 23 023 Inactive Humulin R Regular U-100 Insulin 100 unit/mL injection solution RxNorm: 502222 85 Unit(s) Injection TID 07/13/19 23 023 Inactive ketorolac 0.5 % eye drops RxNorm: 059504 Instill 1 Drop(s) as directed QID Instill 1 drop into affected eye(s) 4 times daily starting 1 day prior to surgery and continue until gone (do not exceed 4 weeks). 07/13/19 23 023 Inactive Diflucan 150 mg tablet RxNorm: 400522 Take 1 Tablet(s) Oral QD repeat on day 3 and 6 06/30/19 23 023 Inactive Accu-Chek Guide test strips RxNorm: Use 1 Test Strip QID Use 1 test strip to monitor blood glucose 4 times daily and as needed. Dx:E11.42. 06/23/19 23 023 Inactive ok to substitute with any covered alternative test strip dextromethorphan-gu aifenesin 10 mg-100 mg/5 mL oral liquid RxNorm: 628228 Take 10 Milliliter(s) Oral every 4 hours as needed for cough 06/19/19 023 Inactive dextromethorphan-gu aifenesin 10 mg-100 mg/5 mL oral liquid RxNorm: 960905 Take 10 Milliliter(s) Oral every 4 hours as needed for cough 06/19/19 023 Inactive Lyrica 150 mg capsule RxNorm: 021313 Take 1 Capsule(s) Oral QHS every night at bedtime 06/18/19 023 Inactive d/c 100mg dose aripiprazole 15 mg tablet RxNorm: 053130 1/2 TAB (7.5MG) ORALLY DAILY (DX:MAJOR DEPRESSIVE DISORDER) 06/05/19 23 023 Inactive pregabalin 100 mg capsule RxNorm: 190656 1 Capsule(s) Oral QAM every morning 06/02/19 23 023 Inactive Banophen 50 mg capsule RxNorm: 6603052 Take 1 Capsule(s) Oral Q6H every 6 hours as needed 05/19/19 No Stop Date Active Novolog Flexpen U-100 Insulin aspart 100 unit/mL (3 mL) subcutaneous RxNorm: 5529937 Inject 10 Unit(s) Subcutaneous QHS every night at bedtime with nighttime snack 04/08/20 022 Inactive Novolog Flexpen U-100 Insulin aspart 100 unit/mL (3 mL) subcutaneous RxNorm: 0566082 Inject 42 Unit(s) Subcutaneous TID in addition to sliding scale 04/08/20 Inactive d/c 36u albuterol sulfate HFA 90 mcg/actuation aerosol inhaler RxNorm: 7380681 Take 2 Puff(s) Inhalation Q4H every four hours as needed as needed for SOB, cough, or wheezing 04/07/20 030 Active Banophen 50 mg capsule RxNorm: 9321890 Take 1 Capsule(s) Oral Q6H every 6 hours as needed 04/06/20 023 Inactive diphenhydramine 50 mg tablet RxNorm: 6078094 Take 1 Tablet(s) Oral Q6H every 6 hours as needed 04/06/20 022 Inactive diphenhydramine 50 mg tablet RxNorm: 4645453 1 Tablet(s) Oral Q6H every 6 hours as needed 04/06/20 022 Inactive Abilify 15 mg tablet RxNorm: 122002 1/2 Tablet(s) Oral QD 03/10/20 023 Inactive Shingrix (PF) 50 mcg/0.5 mL intramuscular suspension, kit RxNorm: 8665955 Administer 1/2 Milliliter(s) Intramuscular QD one time shingrix step 2 ( step 1 given 11/04/21) WITH needle - Nursing please administer upon arrival and once administered post a bridge message with date of administration, substance abuse nurse, expiration date, and lot# so we can update [facility] 02/18/20 022 Inactive dispense with needle Shingrix (PF) 50 mcg/0.5 mL intramuscular suspension, kit RxNorm: 8226579 Administer 1/2 Milliliter(s) Intramuscular QD one time shingrix step 2 ( step 1 given 6/21/22) WITH needle - Nursing please administer upon arrival and once administered post a bridge message with date of administration, substance abuse nurse, expiration date, and lot# so we can update [facility] 02/18/20 22 Inactive dispense with needle polyethylene glycol 3350 17 gram/dose oral powder RxNorm: 772892 Take 17=1 capful Gram(s) Oral QD mix with 4-8oz of liquid 01/08/20 22 023 Inactive take this in addition to BID prn order Lyrica 100 mg capsule RxNorm: 036865 Take 1 Capsule(s) Oral QAM every morning 01/08/20 22 022 Inactive d/c 50mg dose acetaminophen 500 mg tablet RxNorm: 604215 Take 1 Tablet(s) Oral TID 01/08/20 22 022 Inactive d/c PRN order Lyrica 150 mg capsule RxNorm: 811847 Take 1 Capsule(s) Oral QHS every night at bedtime 01/08/20 22 023 Inactive d/c 100mg dose Abilify 5 mg tablet RxNorm: 719230 Take 1 Tablet(s) Oral QD take 1 tab po QD #30 refill 5 dx: MDD 12/12/19 22 022 Inactive Abilify 5 mg tablet RxNorm: 285017 Take 1 Tablet(s) Oral QD take 1 tab po QD #30 refill 5 dx: MDD 12/12/19 22 022 Inactive Novolog Flexpen U-100 Insulin aspart 100 unit/mL (3 mL) subcutaneous RxNorm: 8069121 Inject 42 Unit(s) Subcutaneous TID in addition to sliding scale 12/10/19 22 022 Inactive d/c 36u chlorthalidone 25 mg tablet RxNorm: 838236 Take 1 Tablet(s) Oral QAM every morning 12/10/19 22 023 Inactive pregabalin 50 mg capsule RxNorm: 139694 Take 1 Capsule(s) Oral QAM every morning 11/12/19 22 022 Inactive tetanus-diphtheria toxoids-Td 2 Lf unit-2 Lf unit/0.5 mL IM suspension RxNorm: 139 Take 0.5 Miscellaneous Intramuscular 11/12/19 22 022 Inactive need tdap - nursing to administer upon arrival pregabalin 50 mg capsule RxNorm: 529580 Take 1 Capsule(s) Oral QAM every morning 10/16/19 22 022 Inactive pregabalin 50 mg capsule RxNorm: 058466 Take 1 Capsule(s) Oral QAM every morning 10/16/19 22 022 Inactive pregabalin 50 mg capsule RxNorm: 579806 1 Capsule(s) Oral QAM every morning 10/15/19 22 022 Inactive Shingrix (PF) 50 mcg/0.5 mL intramuscular suspension, kit RxNorm: 4324660 Administer 1/2 Milliliter(s) Intramuscular one time Nursing please administer upon arrival and once administered post a bridge message with date of administration, substance abuse nurse, expiration date, and lot# so we can update [facility]. 10/09/19 22 022 Inactive shingrix step 1 Shingrix (PF) 50 mcg/0.5 mL intramuscular suspension, kit RxNorm: 5797487 Administer 1/2 Milliliter(s) Intramuscular one time Nursing please administer upon arrival and once administered post a bridge message with date of administration, substance abuse nurse, expiration date, and lot# so we can update [facility]. 10/09/19 22 022 Inactive shingrix step 1 cholecalciferol (vitamin D3) 1,250 mcg (50,000 unit) capsule RxNorm: 714293 Take 1 Capsule(s) Oral QW once a [...] aspart 100 unit/mL (3 mL) subcutaneous RxNorm: 3195556 Inject 10 Unit(s) Subcutaneous QHS every night at bedtime with nighttime snack 10/08/19 22 Inactive Shingrix (PF) 50 mcg/0.5 mL intramuscular suspension, kit RxNorm: 8708812 ADMINISTER 2-DOSE SERIES PER CDC GUIDELINES 10/08/19 22 Active Shingrix (PF) 50 mcg/0.5 mL intramuscular suspension, kit RxNorm: 4595328 ADMINISTER 2-DOSE SERIES PER CDC GUIDELINES 10/08/19 22 Inactive Novolog Flexpen U-100 Insulin aspart 100 unit/mL (3 mL) subcutaneous RxNorm: 8407407 Inject 36 Unit(s) Subcutaneous TID in addition to sliding scale 10/08/19 22 Inactive Novofine Autocover 30 gauge x 1/3 needle RxNorm: Use 1 Miscellaneous UD as directed Use 1 needle as directed to administer insulin 5 times a day Dx:E11.42. 10/03/19 Inactive ok to substitute with any covered alternative pen needle benzoyl peroxide 10 % topical cleanser RxNorm: 389820 Apply 1 Application Topical QD apply to face, wash rinse and dry once daily (may change to QOD if drying) 08/19/19 022 Inactive (%covered by insurance) #60ml refill 11 dx: acne benzoyl peroxide 10 % topical cleanser RxNorm: 960460 Apply 1 Application Topical QD apply to face, wash rinse and dry once daily (may change to QOD if drying) 08/19/19 22 022 Inactive (%covered by insurance) #60ml refill 11 dx: acne benzoyl peroxide 10 % topical cleanser RxNorm: 622816 Apply 1 Application Topical QD apply to face, wash rinse and dry once daily (may change to QOD if drying) 08/19/19 22 022 Inactive (%covered by insurance) #60ml refill 11 dx: acne Lyrica 50 mg capsule RxNorm: 799929 Take 1 Capsule(s) Oral QAM every morning Take 1 capsule by mouth once daily 08/19/19 22 022 Inactive benzoyl peroxide 10 % topical cleanser RxNorm: 706620 Apply 1 Application Topical QD apply to face, wash rinse and dry once daily (may change to QOD if drying) 08/19/19 22 Inactive (%covered by insurance) #60ml refill 11 dx: acne Lyrica 100 mg capsule RxNorm: 285018 Take 1 Capsule(s) Oral QHS every night at bedtime Take 1 capsule by mouth once daily at bedtime 08/19/19 22 022 Inactive Lyrica 100 mg capsule RxNorm: 190262 Take 1 Capsule(s) Oral QHS every night at bedtime Take 1 capsule by mouth once daily at bedtime 08/16/19 22 022 Inactive Lyrica 50 mg capsule RxNorm: 773912 Take 1 Capsule(s) Oral QAM every morning Take 1 capsule by mouth once daily 08/16/19 22 022 Inactive Levemir FlexTouch U-100 Insulin 100 unit/mL (3 mL) subcutaneous pen RxNorm: 552104 Inject 86 Unit(s) Subcutaneous BID 08/05/19 22 022 Inactive d/c 83units BID Lyrica 100 mg capsule RxNorm: 308440 Take 1 Capsule(s) Oral QHS every night at bedtime Take 1 capsule by mouth once daily at bedtime 07/14/19 22 022 Inactive Lyrica 50 mg capsule RxNorm: 643168 Take 1 Capsule(s) Oral QAM every morning Take 1 capsule by mouth once daily 07/14/19 22 022 Inactive Levemir FlexTouch U-100 Insulin 100 unit/mL (3 mL) subcutaneous pen RxNorm: 940504 Inject 83 Unit(s) Subcutaneous BID 07/08/19 22 [...] 30 mg tablet,extended release 24 hr RxNorm: 557064 Take 1 Tablet(s) Oral QD 05/05/20 21 No Stop Date Active hydralazine 50 mg tablet RxNorm: 605902 Take 1 Tablet(s) Oral QID 05/05/20 21 022 Inactive venlafaxine ER 225 mg tablet,extended release 24 hr RxNorm: 468931 Take 1 Tablet(s) Oral QD 05/05/20 21 021 Inactive venlafaxine ER 225 mg tablet,extended release 24 hr RxNorm: 083743 Take 1 Tablet(s) Oral QD 05/05/20 21 022 Inactive hydralazine 50 mg tablet RxNorm: 446544 Take 1 Tablet(s) Oral QID 05/05/20 21 021 Inactive aspirin 81 mg tablet,delayed release RxNorm: 210353 Take 1 Tablet(s) Oral QD 03/31/20 21 022 Inactive Zetia 10 mg tablet RxNorm: 295812 Take 1 Tablet(s) Oral QD 03/31/20 Inactive Vitamin D2 1,250 mcg (50,000 unit) capsule RxNorm: 3196526 Take 1 Capsule(s) Oral QW once a week x 12 weeks 03/31/20 Inactive Vitamin D2 1,250 mcg (50,000 unit) capsule RxNorm: 6275656 Take 1 Capsule(s) Oral QW once a week 03/31/20 Inactive Zetia 10 mg tablet RxNorm: 542408 Take 1 Tablet(s) Oral QD 03/31/20 Inactive hydralazine 25 mg tablet RxNorm: 256427 Take 1 Tablet(s) Oral QID 03/31/20 Inactive hydralazine 25 mg tablet RxNorm: 594959 Take 1 Tablet(s) Oral QID 03/31/20 021 Inactive hydralazine 10 mg tablet RxNorm: 573748 Take 1 Tablet(s) Oral QID 03/03/20 021 Inactive cephalexin 500 mg tablet RxNorm: 870262 Take 1 Tablet(s) Oral QID 02/27/20 021 Inactive cephalexin 500 mg tablet RxNorm: 646274 Take 1 Tablet(s) Oral QID 02/27/20 021 Inactive lisinopril 40 mg tablet RxNorm: 056129 Take 1 Tablet(s) Oral QD 02/11/20 023 Inactive Eliquis 5 mg tablet RxNorm: 1226536 Take 1 Tablet(s) Oral BID 01/05/20 022 Inactive Eliquis 5 mg tablet RxNorm: 7056739 Take 2 Tablet(s) Oral QD 01/01/20 021 Inactive Lyrica 50 mg capsule RxNorm: 349109 Take 1 Capsule(s) Oral QAM every morning 12/24/19 021 Inactive Lyrica 100 mg capsule RxNorm: 460005 Take 1 Capsule(s) Oral QHS every night at bedtime 12/24/19 021 Inactive clotrimazole 1 % topical cream RxNorm: 049891 Apply to right foot and toes Topical BID 12/04/19 023 Inactive metoprolol succinate ER 200 mg tablet,extended release 24 hr RxNorm: 192560 Take 1 Tablet(s) Oral QD 12/04/19 023 Inactive ciprofloxacin 500 mg tablet RxNorm: 739755 Take 1 Tablet(s) Oral QD 11/30/19 021 Inactive DX ofloxacin otic drops Accu-Chek Guide test strips RxNorm: USE 1 TO CHECK GLUCOSE 4 TIMES DAILY AND NEEDED 11/15/19 023 Inactive Blood Glucose Test strips RxNorm: Use 1 Test Strip QID at PRN 11/05/19 023 Inactive E11.42 lisinopril 30 mg tablet RxNorm: 322228 Take 1 Tablet(s) Oral QD 10/30/19 021 Inactive lisinopril 20 mg tablet RxNorm: 231860 Take 1 Tablet(s) Oral QD 10/23/19 021 Inactive lisinopril 20 mg tablet RxNorm: 987724 Take 1 Tablet(s) Oral QD 10/23/19 021 Inactive lisinopril 10 mg tablet RxNorm: 402232 Take 1 Tablet(s) Oral QD 10/02/19 021 Inactive icosapent ethyl 1 gram capsule RxNorm: 8030194 Take 2 Capsule(s) (2 gm) Oral BID with meals 09/12/19 022 Inactive Okay to dispense one 2gm tab if you have that available. icosapent ethyl 1 gram capsule RxNorm: 0461846 Take 2 Capsule(s) Oral BID 09/12/19 021 Inactive Okay to dispense one 2gm tab if you have that available. amlodipine 10 mg tablet RxNorm: 461517 Take 1 Tablet(s) Oral QD 09/04/19 21 022 Inactive aspirin 81 mg tablet,delayed release RxNorm: 663217 Take 1 Tablet(s) Oral QD 09/04/19 21 021 Inactive Levemir FlexTouch U-100 Insulin 100 unit/mL (3 mL) subcutaneous pen RxNorm: 056020 Inject 150 Unit(s) Subcutaneous BID 09/04/19 022 Inactive venlafaxine ER 150 mg tablet,extended release 24 hr RxNorm: 732692 Take 1 Tablet(s) Oral QD 09/04/19 Inactive clotrimazole-betame thasone 1 %-0.05 % topical cream RxNorm: 103654 Apply to rash on red area on left abdomen/chest Topical BID 08/10/19 Inactive amlodipine 5 mg tablet RxNorm: 562061 Take 1 Tablet(s) Oral QD 07/31/19 Inactive cephalexin 500 mg tablet RxNorm: 885806 Take 1 Tablet(s) Oral BID BID - Twice Daily 07/31/19 Inactive Start 08/01/20 pantoprazole 40 mg tablet,delayed release RxNorm: 656069 Take 1 Tablet(s) Oral QAM every morning 07/08/19 022 Inactive senna 8.6 mg tablet RxNorm: 402388 Take 1 Tablet(s) Oral QD 07/08/19 022 Inactive pravastatin 80 mg tablet RxNorm: 772864 Take 1 Tablet(s) Oral QHS every night at bedtime 07/08/19 023 Inactive carbamazepine 200 mg tablet RxNorm: 651374 Take 1 Tablet(s) Oral BID 07/08/19 022 Inactive clopidogrel 75 mg tablet RxNorm: 289049 Take 1 Tablet(s) Oral QD 07/08/19 021 Inactive Blood Glucose Test strips RxNorm: Use 1 Test Strip QID at PRN 07/08/19 021 Inactive E11.42 Novolog Flexpen U-100 Insulin aspart 100 unit/mL (3 mL) subcutaneous RxNorm: 7288125 Administer per sliding scale Milliliter(s) Subcutaneous TID 151-200: 10 u; 201-250: 20 u; 251-300: 30 u; 301-350: 40 u; 351-400: 50 u. 07/08/19 022 Inactive lisinopril 5 mg tablet RxNorm: 814846 Take 1 Tablet(s) Oral QD 07/08/19 21 021 Inactive Novolog Flexpen U-100 Insulin aspart 100 unit/mL (3 mL) subcutaneous RxNorm: 7258702 Inject 85 Unit(s) Subcutaneous TID 07/08/19 21 022 Inactive clotrimazole 1 % topical cream RxNorm: 389610 Apply to bilateral groin areas Topical BID 07/08/19 21 022 Inactive metoprolol succinate ER 200 mg tablet,extended release 24 hr RxNorm: 697389 Take 1 Tablet(s) Oral QD 07/08/19 21 021 Inactive Vitamin D3 25 mcg (1,000 unit) tablet RxNorm: 585741 Take 1 Tablet(s) Oral QD 07/08/19 021 Inactive isosorbide dinitrate 30 mg tablet RxNorm: 767289 Take 1 Tablet(s) Oral QD 07/08/19 21 021 Inactive Levemir FlexTouch U-100 Insulin 100 unit/mL (3 mL) subcutaneous pen RxNorm: 981658 Inject 140 Unit(s) Subcutaneous BID 07/08/19 21 021 Inactive torsemide 20 mg tablet RxNorm: 110491 Take 1 Tablet(s) Oral QD 07/08/19 023 Inactive venlafaxine 75 mg tablet RxNorm: 413383 Take 1 Tablet(s) Oral QD 07/08/19 021 Inactive acetaminophen 500 mg tablet RxNorm: 957427 Take 1 Tablet(s) Oral TID as needed for headache 06/18/19 21 021 Inactive acetaminophen 500 mg tablet RxNorm: 920737 Take 1 Tablet(s) Oral TID as needed for headache 06/18/19 21 021 Inactive Lyrica 100 mg capsule RxNorm: 633199 Take 1 Capsule(s) Oral QHS every night at bedtime 06/11/19 21 021 Inactive Lyrica 50 mg capsule RxNorm: 054835 Take 1 Capsule(s) Oral QAM every morning 06/10/19 21 Inactive hydrocortisone 2.5 % topical cream RxNorm: 999876 Apply to bilateral groin creases Topical BID 05/15/20 20 021 Inactive clotrimazole 1 % topical cream RxNorm: 828084 Apply to bilateral groin areas Topical BID 05/15/20 20 021 Inactive Lyrica 50 mg capsule RxNorm: 124236 Take 1 Capsule(s) Oral QAM every morning 05/14/20 20 Inactive Lyrica 100 mg capsule RxNorm: 709363 Take 1 Capsule(s) Oral QHS every night [...] Inactive Nystop 100,000 unit/gram topical powder RxNorm: 610734 Apply to abd folds, under breasts and L side of groin Topical BID x 14 days, then BID PRN 04/08/20 20 020 Inactive dx: yeast dermatitis Lyrica 100 mg capsule RxNorm: 654962 Take 1 Capsule(s) Oral QHS every night at bedtime 03/13/20 20 020 Inactive Lyrica 50 mg capsule RxNorm: 389296 Take 1 Capsule(s) Oral QAM every morning 03/13/20 20 Inactive ketoconazole 2 % shampoo RxNorm: 126303 Apply Topical two times a week with showers 03/11/20 Inactive cholecalciferol (vitamin D3) 50 mcg (2,000 unit) tablet RxNorm: 250411 Take 1 Tablet(s) Oral QD 03/11/20 Inactive Zetia 10 mg tablet RxNorm: 340235 Take 1 Tablet(s) Oral QD 03/07/20 20 Inactive Zetia 10 mg tablet RxNorm: 338927 Take 1 Tablet(s) Oral QD 03/07/20 Inactive Lyrica 50 mg capsule RxNorm: 834656 Take 1 Capsule(s) Oral QAM every morning 02/15/20 Inactive Lyrica 100 mg capsule RxNorm: 942971 Take 1 Capsule(s) Oral QHS every night at bedtime 02/15/20 Inactive Lyrica 100 mg capsule RxNorm: 257684 Take 1 Capsule(s) Oral QHS every night at bedtime 02/15/20 Inactive Lyrica 50 mg capsule RxNorm: 569883 Take 1 Capsule(s) Oral QAM every morning 02/15/20 Inactive polyethylene glycol 3350 17 gram/dose oral powder RxNorm: 910023 Take 17=1 capful Gram(s) Oral BID as needed mix with 4-8oz of liquid 06/12/2021 Activemetoprolol succinate ER 200 mg tablet,extended release 24 hrRxNorm: 920855 Take 1 Tablet(s) Oral QD08/11/2022ctiveloperamide 2 mg capsuleRxNorm: 098470 Take 1 Capsule(s) Oral QID as nculsl5306/12/2021ctivehydralazine 50 mg tablet RxNorm: 209292Prvb 1 Tablet(s) Oral QID08/11/2022ctivevenlafaxine ER 75 mg capsule,extended release 24 hrRxNorm: 279977Lbcu 3 Capsule(s) Oral QD06/12/2021 02/01/2023Inactiveicosapent ethyl 1 gram capsuleRxNorm: 8792759Fkvf 2 Capsule(s) (2 gm) Oral BID with meals/InactiveOkay to dispense one 2gm tab if you have that available.Levemir FlexTouch U-100 Insulin 100 unit/mL (3 mL) subcutaneous penRxNorm: 269369Mwenjw 80 Unit(s) Subcutaneous BID07/14/2022 07/12/2022InactiveNovolog Flexpen U-100 Insulin aspart 100 unit/mL (3 mL) subcutaneousRxNorm: 2963408Cdnbip 30 Unit(s) Subcutaneous TID with meals /Inactive Medication Administered No Medication Administered data Vital Signs Date Vital 02/24/2023 Height: 5'5 Code: 8302-2 Weight : Code: 3141-9 Reason For Visit No Reason For Visit data Encounters Encounter Performer Location Location Address Codes Cristiano e ([id number]) Home or Residence Vi sit Est Pt - High Level, 60 mins Diagnosis: Coronary artery disease involving teller coronary artery of teller heart, angina presence unspecified[ICD10: I25.10] Diagnosis: Hyperlipidemia associated with type 2 diabetes mellitus[ICD10: E11.69] Diagnosis: Stage 2 chronic 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[ICD10: E11.22] Diagnosis: Type 2 diabetes mellitus with diabetic polyneuropathy, with long-term current use of insulin[ICD10: E11.42]Chelo Wiseman on [id number] [place] [id number]-8: [id number] Plan of Care Planned Activity Notes Codes Status Date Patient Education: Patient Medication Summary Rstsivneo55/11/2023atient Education: Influenza XobclshPtravwskk00/11/2023 Appointment: Sandra Clark WPtel: [address] [facility] [address] [id number] [facility] Follow Up12/09/2022ppointment: Rosalina Shirley WPtel: [address] [facility] [address] [id number] [facility]10/26/2022Referral: [facility] WPtel: [address], [address] [id number] USReferralRecords Ytwvkshc93/08/2023ppointment: Rosalina Shirley WPtel: [address] [facility] [address] [id number] US[facility]/08/11/2022ppointment: Rosalina Shirley WPtel: [address] [facility] [address] [id number] [facility]/07/14/2022ppointment: Rosalina Shirley WPtel: [address] [facility] [address] [id number] USF/2Referral: [facility] WPtel: [address] [facility] [address] [id number] DCPqxvholgJpbmttlsb88/12/2022Referral: General CardiologyReferralCompleted 1Referral: General PsychologistReferralClosedReferral: General PsychiatristReferralNeed [...] Sister Jyotsna involved in his care cell# [phone] Guardian: Don (rosalina met in person 09/01/21), now has Lexii (same group as don)Lab Schedule: /September* 02/08/2023 Ischemic Heart Disease Has daily chest pain, appears to be unchanging from baseline intermittent pain that he has had for the past 2-3 years since heart attack. He needs to make an appointment with [facility].??Staff aware and will help schedule apt. Will attempt to reach guardian and CC.?? Diabetes DM2: High dose insulin. Needs to follow up with endocrinology. Staff aware and have been instructedto help set up an appointment.?? Continue mealtime insulin 100U TID?? Continue Levemir 30U BID HLD: Trigs >1500. Discussed dangers of severely elevated lipids and tryglicerides. His lipase on02/22 was normal at 23.?? He makes poor dietary choices but is also very limited in terms of food choices. Will eat whatever the staff give me and does not advocate for a heart healthy diet. Needs to be on high intensity statin.?? D/C pravastatin 80mg?? Start Rosuvastatin 20mg QD. Plan to titrate to max dose depending on tolerability Continue Zetia 10mg QD Recheck FLP in 6 weeks?? .02/24/2023
--- OUTSIDE RECORDS SUMMARY | 2023-04-01 08:36 | XMS_ITS | CCD ---
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 Name Role Phone Chelo Fonseca PA-C Primary Care Provider Unavaila ble Chelo Fonseca PA-C Chronic Care Management Unavai lable Summary Purpose DataExchange Insurance Providers Payer name Policy type / Coverage type Covered libertarian ID Effective Begin Date Effective End Date Medicare [place] Medicare Part B [id number] Unknown Unknown [place] Medicare Part B [id number] Unknown Unknown Family history Sister Brittany Suggs [...] Unknown Custodial 09/03/[address]: 2919513 Non-Smoker / No History of Smoking 09/02/[address]: 542804576 No Alcohol Consum ption 09/02/2020 Allergies, Adverse Reactions, Alerts Substance Reaction Codes Entered Date Inactivated Date Status LISINOPRIL RxNorm: 4657945No Inactive DateActiveMetformin CGtTcmixfd99/28/2020No Inactive DateActive Problems Condition Codes Effective Dates Condition St atus BMI 60.0-69.9, adult ICD-10: Z68.44 ICD-9: V85.4410/ctiveCandidal intertrigoICD-10: B37.2 ICD-9: 112.310/ctiveHyperlipidemia associated with type 2 diabetes mellitusICD-10: E11.69 ICD-9: 250.8010/ctiveHyperlipidemia, unspecifiedICD-10: E78.5 ICD-9: 272.410/ctiveStage 2 chronic 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ICD-10: E11.22 ICD-9: 250.4010/ctiveType 2 diabetes mellitus with diabetic polyneuropathy, with long-term current use of insulinICD-10: E11.42 ICD-9: 250.6010/ctiveInappropriate sexual behaviorICD-10: Z72.89 ICD-9: 312.8910/ctiveLearning disabilityICD-10: F81.9 ICD-9: 315.210/ctiveMajor depression, recurrentICD-10: F33.9 ICD-9: 296.3010/ctiveOther longterm (current) drug therapyICD-10: Z79.899 ICD-9: V58.6910/ctiveRecurrent major depressive disorder, in partial remissionICD-10: F33.41 ICD-9: 296.3510/ctiveCoronary artery disease involving assinibo[place] and sioux coronary artery of assiniboine and sioux heart, angina presence unspecifiedICD-10: I25.10 ICD-9: 414.0110/ctiveAnnual physical examICD-10: Z00.00 ICD-9: V70.009/ctiveEncounter for other [...] evaluationICD-10: Z01.818 ICD-9: V72.8403/ctiveSecondary hypertensionICD-10: I15.9 ICD-9: 405.9903/ctiveVitamin D deficiencyICD-10: E55.9 ICD-9: 268.912/ctiveShortness of breathICD-10: R06.02 ICD-9: 786.0511/ctiveSeizure disorderICD-10: G40.909 ICD-9: 345.9011/ctiveCellulitisICD-10: L03.90 ICD-9: 682.910/ctiveReducible umbilical herniaICD-10: K42.9 ICD-9: 553.110/ctiveHx of deep venous thrombosisICD-10: Z86.718 ICD-9: V12.5109/ctiveHypercoagulable stateICD-10: D68.59 ICD-9: 289.8109/ctivePVD (peripheral vascular disease)ICD-10: I73.9 ICD-9: 443.909/ctiveDepressionICD-10: F32.9 ICD-9: 96373/esolvedDVT (deep venous thrombosis)ICD-10: I82.409 ICD-9: 453.4009/esolvedEncounter for immunizationICD-10: Z23 ICD-9: V03.8909esolvedLong term (current) use of insulinICD-10: Z79.4 02/10/2022esolvedMuscular painICD-10: M79.10 ICD-9: 729.109esolvedDandruff in adultICD-10: L21.0 ICD-9: 690.1808ctiveHypertension associated with diabetesICD-10: E11.59 ICD-9: 250.80001/06/2022esolvedHistory of anemia due to CKDICD-10: N18.9 ICD-9: 585.907/ctiveStage 2 chronic kidney diseaseICD-10: N18.2 ICD-9: 585.207ctiveGout due to renal impairmentICD-10: M10.30 ICD-9: 274.1006/ctiveSkin tagICD-10: L91.8 ICD-9: 701.911/ctiveCallus of heelICD-10: L84 ICD-9: 29950ctiveImpacted cerumen, left earICD-10: H61.22 ICD-9: 380.408/ctiveContact with [...] Z20.828 ICD-9: V01.7902/esolvedHyperhidrosis of palmsICD-10: L74.512 ICD-9: 705.1329RuliuzXaxzxgscUrovnyu19/28/2020ActiveDiabetes mellitus Type 3Lzinbjf10/28/2020ActiveAnemia in chronic kidney diseaseICD-10: D63.1 02/12/2020ResolvedHyperlipidemia, unspecifiedICD-10: E78.Resolved Medications Medication Codes Instructions Start Date Stop Date Status Fill Instructions clotrimazole 1 % topical cream RxNorm: 584990 Take apply topically to abdominal folds twice daily for 14 days 03/12/20 23 023 Active rosuvastatin 20 mg tablet RxNorm: 738439 Take 1 Tablet(s) Oral QD 02/26/20 23 024 Active d/c pravastatin 80mg Ozempic 1 mg/dose (4 mg/3 mL) subcutaneous pen injector RxNorm: 9484208 Inject 1 Milligram(s) Subcutaneous QW once a week 02/20/20 23 023 Inactive pregabalin 150 mg capsule RxNorm: 453278 Take 1 Capsule(s) Oral HS at bed time 02/19/20 23 023 Inactive pregabalin 100 mg capsule RxNorm: 697420 Take 1 Capsule(s) Oral QAM every morning 02/18/20 23 024 Active FreeStyle Chema 2 Sensor kit RxNorm: use as directed 02/04/20 23 024 Active venlafaxine ER 75 mg capsule,extended release 24 hr RxNorm: 812074 Take 3 Capsule(s) Oral QD 02/04/20 23 023 Inactive FreeStyle Chema 2 Sensor kit RxNorm: use as directed 02/04/20 23 023 Inactive fluconazole 150 mg tablet RxNorm: 984833 Take 1 Tablet(s) Oral on day 3 and on day 6 02/03/20 23 024 Active chlorthalidone 25 mg tablet RxNorm: 863584 Take 1 Tablet(s) Oral QAM every morning 02/03/20 23 No Stop Date Active venlafaxine ER 150 mg capsule,extended release 24 hr RxNorm: 716546 Take 1 Capsule(s) Oral QD 02/03/20 023 Inactive acetaminophen 500 mg tablet RxNorm: 154752 1 TABLET ORALLY 3 TIMES DAILY (MAX APAP:4GM/24HR) 12/15/19 024 Active potassium chloride ER 20 mEq tablet,extended release RxNorm: 920634 Take 1 Tablet(s) Oral BID 12/09/19 023 Inactive d/c 20mEq once daily (sent from hospital) clotrimazole 1 % topical cream RxNorm: 563889 apply 1g topically to top of feet and in between toes BID 12/09/19 023 Inactive nystatin 100,000 unit/gram topical powder RxNorm: 269453 APPLY TO AFFECTED AREAS TOPICALLY 2 TIMES DAILY 11/21/19 024 Active Nystop 100,000 unit/gram topical powder RxNorm: 129642 Apply to abd folds, under breasts and L side of groin Topical BID x 14 days, then BID PRN 11/20/19 023 Inactive dx: yeast dermatitis [place] Ultra Strength 4 %-30 %-10 % topical cream RxNorm: 713079 Apply 1 Gram(s) Topical QID PRN to feet and legs for neuropathic pain 11/11/19 024 Active hydrocortisone 2.5 % topical cream RxNorm: 836855 Apply 1/2 Gram(s) Topical BID as needed 11/10/19 No Stop Date Active clotrimazole 1 % topical cream RxNorm: 550481 Apply 1/2 Gram(s) Topical BID Apply to affected areas of groin, periarea, and abdominal topically 2 times daily 11/10/19 023 Inactive Levemir FlexPen 100 unit/mL (3 mL) solution subcutaneous insulin pen RxNorm: 468064 Inject 30 Unit(s) Subcutaneous BID 10/07/19 024 Active Humulin R U-500 (Concentrated) Insulin 500 unit/mL subcutaneous soln RxNorm: 668000 Inject 100 Unit(s) Subcutaneous TID 10/07/19 024 Active Ozempic 0.25 mg or 0.5 mg (2 mg/3 mL) subcutaneous pen injector RxNorm: 3659138 Inject 1/2 Milligram(s) Subcutaneous QW once a week 10/07/19 024 Active aripiprazole 15 mg tablet RxNorm: 393325 1/2 TAB (7.5MG) ORALLY DAILY (DX:MAJOR DEPRESSIVE DISORDER) 09/23/19 023 Inactive Lancets,Thin 28 gauge RxNorm: Use 1 as directed QID 09/15/19 23 024 Active Accu-Chek Guide test strips RxNorm: Use 1 Test Strip QID 09/15/19 023 Inactive ok to substitute with any covered alternative test strip torsemide 20 mg tablet RxNorm: 821521 Take 1 Tablet(s) Oral BID 09/09/19 024 Active d/c once daily dosing carvedilol 25 mg tablet RxNorm: 554224 Take 1 Tablet(s) Oral QD 08/25/19 23 024 Active pregabalin 150 mg capsule RxNorm: 375394 1 Capsule(s) Oral HS at bed time 08/18/19 023 Inactive pregabalin 100 mg capsule RxNorm: 680783 1 Capsule(s) Oral QAM every morning 08/18/19 23 023 Inactive carvedilol 25 mg tablet RxNorm: 871519 1 Tablet(s) Oral QD 07/28/19 23 023 Inactive lisinopril 20 mg tablet RxNorm: 521856 Give 1 Tablet(s) Oral QD 07/28/19 23 023 Inactive Lyrica 150 mg capsule RxNorm: 517233 Take 1 Capsule(s) Oral QHS every night at bedtime 07/19/19 23 023 Inactive d/c 100mg dose Diflucan 150 mg tablet RxNorm: 112780 Take 1 Tablet(s) Oral QD repeat on day 3 and 6 07/19/19 23 023 Inactive pregabalin 100 mg capsule RxNorm: 295161 Take 1 Capsule(s) Oral QAM every morning 07/19/19 23 023 Inactive gatifloxacin 0.5 % eye drops RxNorm: 925314 Instill 1 Drop(s) as directed TID Instill 1 drop in to affected eye(s) starting 1 day prior to surgery and continue until gone (do not exceed 4 weeks). 07/13/19 23 023 Inactive carvedilol 25 mg tablet RxNorm: 480278 2 Tablet(s) Oral BID 07/13/19 023 Inactive Humulin R Regular U-100 Insulin 100 unit/mL injection solution RxNorm: 965757 85 Unit(s) Injection TID 07/13/19 023 Inactive ketorolac 0.5 % eye drops RxNorm: 853533 Instill 1 Drop(s) as directed QID Instill 1 drop into affected eye(s) 4 times daily starting 1 day prior to surgery and continue until gone (do not exceed 4 weeks). 07/13/19 023 Inactive Diflucan 150 mg tablet RxNorm: 562862 Take 1 Tablet(s) Oral QD repeat on day 3 and 6 06/30/19 23 023 Inactive Accu-Chek Guide test strips RxNorm: Use 1 Test Strip QID Use 1 test strip to monitor blood glucose 4 times daily and as needed. Dx:E11.42. 06/23/19 23 023 Inactive ok to substitute with any covered alternative test strip dextromethorphan-gu aifenesin 10 mg-100 mg/5 mL oral liquid RxNorm: 182922 Take 10 Milliliter(s) Oral every 4 hours as needed for cough 06/19/19 23 023 Inactive dextromethorphan-gu aifenesin 10 mg-100 mg/5 mL oral liquid RxNorm: 611996 Take 10 Milliliter(s) Oral every 4 hours as needed for cough 06/19/19 23 023 Inactive Lyrica 150 mg capsule RxNorm: 216692 Take 1 Capsule(s) Oral QHS every night at bedtime 06/18/19 23 023 Inactive d/c 100mg dose aripiprazole 15 mg tablet RxNorm: 384945 1/2 TAB (7.5MG) ORALLY DAILY (DX:MAJOR DEPRESSIVE DISORDER) 06/05/19 023 Inactive pregabalin 100 mg capsule RxNorm: 137338 1 Capsule(s) Oral QAM every morning 06/02/19 023 Inactive Banophen 50 mg capsule RxNorm: 4200750 Take 1 Capsule(s) Oral Q6H every 6 hours as needed 05/19/19 No Stop Date Active Novolog Flexpen U-100 Insulin aspart 100 unit/mL (3 mL) subcutaneous RxNorm: 0456465 Inject 10 Unit(s) Subcutaneous QHS every night at bedtime with nighttime snack 04/08/20 022 Inactive Novolog Flexpen U-100 Insulin aspart 100 unit/mL (3 mL) subcutaneous RxNorm: 7394689 Inject 42 Unit(s) Subcutaneous TID in addition to sliding scale 04/08/20 Inactive d/c 36u albuterol sulfate HFA 90 mcg/actuation aerosol inhaler RxNorm: 2185529 Take 2 Puff(s) Inhalation Q4H every four hours as needed as needed for SOB, cough, or wheezing 04/07/20 030 Active Banophen 50 mg capsule RxNorm: 4924607 Take 1 Capsule(s) Oral Q6H every 6 hours as needed 04/06/20 023 Inactive diphenhydramine 50 mg tablet RxNorm: 6905492 Take 1 Tablet(s) Oral Q6H every 6 hours as needed 04/06/20 022 Inactive diphenhydramine 50 mg tablet RxNorm: 6838337 1 Tablet(s) Oral Q6H every 6 hours as needed 04/06/20 022 Inactive Abilify 15 mg tablet RxNorm: 461565 1/2 Tablet(s) Oral QD 03/10/20 22 023 Inactive Shingrix (PF) 50 mcg/0.5 mL intramuscular suspension, kit RxNorm: 8526273 Administer 1/2 Milliliter(s) Intramuscular QD one time shingrix step 2 ( step 1 given 11/04/21) WITH needle - Nursing please administer upon arrival and once administered post a bridge message with date of administration, 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, expiration date, and lot# so we can update [facility] 02/18/20 22 022 Inactive dispense with needle Shingrix (PF) 50 mcg/0.5 mL intramuscular suspension, kit RxNorm: 2850020 Administer 1/2 Milliliter(s) Intramuscular QD one time shingrix step 2 ( step 1 given 11/04/21) WITH needle - Nursing please administer upon arrival and once administered post a bridge message with date of administration, 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, expiration date, and lot# so we can update [facility] 02/18/20 22 022 Inactive dispense with needle polyethylene glycol 3350 17 gram/dose oral powder RxNorm: 649800 Take 17=1 capful Gram(s) Oral QD mix with 4-8oz of liquid 01/08/20 22 023 Inactive take this in addition to BID prn order Lyrica 100 mg capsule RxNorm: 056268 Take 1 Capsule(s) Oral QAM every morning 01/08/20 22 022 Inactive d/c 50mg dose acetaminophen 500 mg tablet RxNorm: 944510 Take 1 Tablet(s) Oral TID 01/08/20 22 022 Inactive d/c PRN order Lyrica 150 mg capsule RxNorm: 444793 Take 1 Capsule(s) Oral QHS every night at bedtime 01/08/20 22 023 Inactive d/c 100mg dose Abilify 5 mg tablet RxNorm: 164510 Take 1 Tablet(s) Oral QD take 1 tab po QD #30 refill 5 dx: MDD 12/12/19 22 022 Inactive Abilify 5 mg tablet RxNorm: 381226 Take 1 Tablet(s) Oral QD take 1 tab po QD #30 refill 5 dx: MDD 12/12/19 22 022 Inactive Novolog Flexpen U-100 Insulin aspart 100 unit/mL (3 mL) subcutaneous RxNorm: 4689603 Inject 42 Unit(s) Subcutaneous TID in addition to sliding scale 12/10/19 22 022 Inactive d/c 36u chlorthalidone 25 mg tablet RxNorm: 407492 Take 1 Tablet(s) Oral QAM every morning 12/10/19 22 023 Inactive pregabalin 50 mg capsule RxNorm: 410329 Take 1 Capsule(s) Oral QAM every morning 11/12/19 22 022 Inactive tetanus-diphtheria toxoids-Td 2 Lf unit-2 Lf unit/0.5 mL IM suspension RxNorm: 139 Take 0.5 Miscellaneous Intramuscular 11/12/19 22 Inactive need tdap - nursing to administer upon arrival pregabalin 50 mg capsule RxNorm: 746821 Take 1 Capsule(s) Oral QAM every morning 10/16/19 22 022 Inactive pregabalin 50 mg capsule RxNorm: 056106 Take 1 Capsule(s) Oral QAM every morning 10/16/19 22 022 Inactive pregabalin 50 mg capsule RxNorm: 331238 1 Capsule(s) Oral QAM every morning 10/15/19 22 022 Inactive Shingrix (PF) 50 mcg/0.5 mL intramuscular suspension, kit RxNorm: 7733963 Administer 1/2 Milliliter(s) Intramuscular one time Nursing please administer upon arrival and once administered post a bridge message with date of administration, 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 10/09/19 22 022 Inactive shingrix step 1 cholecalciferol (vitamin D3) 1,250 mcg (50,000 unit) capsule RxNorm: 784321 Take 1 Capsule(s) Oral QW once a [...] aspart 100 unit/mL (3 mL) subcutaneous RxNorm: 9052402 Inject 10 Unit(s) Subcutaneous QHS every night at bedtime with nighttime snack 10/08/19 22 Inactive Shingrix (PF) 50 mcg/0.5 mL intramuscular suspension, kit RxNorm: 0347539 ADMINISTER 2-DOSE SERIES PER CDC GUIDELINES 10/08/19 22 Active Shingrix (PF) 50 mcg/0.5 mL intramuscular suspension, kit RxNorm: 1060477 ADMINISTER 2-DOSE SERIES PER CDC GUIDELINES 10/08/19 22 Inactive Novolog Flexpen U-100 Insulin aspart 100 unit/mL (3 mL) subcutaneous RxNorm: 4272003 Inject 36 Unit(s) Subcutaneous TID in addition to sliding scale 10/08/19 22 Inactive Novofine Autocover 30 gauge x 1/3 needle RxNorm: Use 1 Miscellaneous UD as directed Use 1 needle as directed to administer insulin 5 times a day Dx:E11.42. 10/03/19 Inactive ok to substitute with any covered alternative pen needle benzoyl peroxide 10 % topical cleanser RxNorm: 834061 Apply 1 Application Topical QD apply to face, wash rinse and dry once daily (may change to QOD if drying) 08/19/19 22 022 Inactive (%covered by insurance) #60ml refill 11 dx: acne benzoyl peroxide 10 % topical cleanser RxNorm: 229744 Apply 1 Application Topical QD apply to face, wash rinse and dry once daily (may change to QOD if drying) 08/19/19 22 022 Inactive (%covered by insurance) #60ml refill 11 dx: acne benzoyl peroxide 10 % topical cleanser RxNorm: 400797 Apply 1 Application Topical QD apply to face, wash rinse and dry once daily (may change to QOD if drying) 08/19/19 22 022 Inactive (%covered by insurance) #60ml refill 11 dx: acne Lyrica 50 mg capsule RxNorm: 748725 Take 1 Capsule(s) Oral QAM every morning Take 1 capsule by mouth once daily 08/19/19 22 022 Inactive benzoyl peroxide 10 % topical cleanser RxNorm: 436490 Apply 1 Application Topical QD apply to face, wash rinse and dry once daily (may change to QOD if drying) 08/19/19 22 022 Inactive (%covered by insurance) #60ml refill 11 dx: acne Lyrica 100 mg capsule RxNorm: 198574 Take 1 Capsule(s) Oral QHS every night at bedtime Take 1 capsule by mouth once daily at bedtime 08/19/19 22 022 Inactive Lyrica 100 mg capsule RxNorm: 961593 Take 1 Capsule(s) Oral QHS every night at bedtime Take 1 capsule by mouth once daily at bedtime 08/16/19 22 022 Inactive Lyrica 50 mg capsule RxNorm: 851858 Take 1 Capsule(s) Oral QAM every morning Take 1 capsule by mouth once daily 08/16/19 22 022 Inactive Levemir FlexTouch U-100 Insulin 100 unit/mL (3 mL) subcutaneous pen RxNorm: 924792 Inject 86 Unit(s) Subcutaneous BID 08/05/19 22 022 Inactive d/c 83units BID Lyrica 100 mg capsule RxNorm: 510038 Take 1 Capsule(s) Oral QHS every night at bedtime Take 1 capsule by mouth once daily at bedtime 07/14/19 022 Inactive Lyrica 50 mg capsule RxNorm: 147380 Take 1 Capsule(s) Oral QAM every morning Take 1 capsule by mouth once daily 07/14/19 22 022 Inactive Levemir FlexTouch U-100 Insulin 100 unit/mL (3 mL) subcutaneous pen RxNorm: 830889 Inject 83 Unit(s) Subcutaneous BID 07/08/19 22 022 Inactive d/c 80units BID Accu-Chek Guide Glucose Meter RxNorm: Use 1 Miscellaneous UD as directed Use glucose meter to monitor blood glucose 4 times daily and as needed. Dx:E11.42 06/05/20 22 01/20/2 022 Inactive ok to substitute [...] 30 mg tablet,extended release 24 hr RxNorm: 706569 Take 1 Tablet(s) Oral QD 05/05/20 No Stop Date Active hydralazine 50 mg tablet RxNorm: 821636 Take 1 Tablet(s) Oral QID 05/05/20 21 022 Inactive venlafaxine ER 225 mg tablet,extended release 24 hr RxNorm: 956119 Take 1 Tablet(s) Oral QD 05/05/20 21 021 Inactive venlafaxine ER 225 mg tablet,extended release 24 hr RxNorm: 195256 Take 1 Tablet(s) Oral QD 05/05/20 21 022 Inactive hydralazine 50 mg tablet RxNorm: 442367 Take 1 Tablet(s) Oral QID 05/05/20 21 Inactive aspirin 81 mg tablet,delayed release RxNorm: 017830 Take 1 Tablet(s) Oral QD 03/31/20 Inactive Zetia 10 mg tablet RxNorm: 892276 Take 1 Tablet(s) Oral QD 03/31/20 Inactive Vitamin D2 1,250 mcg (50,000 unit) capsule RxNorm: 8781333 Take 1 Capsule(s) Oral QW once a week x 12 weeks 03/31/20 Inactive Vitamin D2 1,250 mcg (50,000 unit) capsule RxNorm: 9315683 Take 1 Capsule(s) Oral QW once a week 03/31/20 Inactive Zetia 10 mg tablet RxNorm: 862718 Take 1 Tablet(s) Oral QD 03/31/20 Inactive hydralazine 25 mg tablet RxNorm: 075646 Take 1 Tablet(s) Oral QID 03/31/20 021 Inactive hydralazine 25 mg tablet RxNorm: 582272 Take 1 Tablet(s) Oral QID 03/31/20 021 Inactive hydralazine 10 mg tablet RxNorm: 727093 Take 1 Tablet(s) Oral QID 03/03/20 021 Inactive cephalexin 500 mg tablet RxNorm: 385792 Take 1 Tablet(s) Oral QID 02/27/20 021 Inactive cephalexin 500 mg tablet RxNorm: 279952 Take 1 Tablet(s) Oral QID 02/27/20 021 Inactive lisinopril 40 mg tablet RxNorm: 330902 Take 1 Tablet(s) Oral QD 02/11/20 023 Inactive Eliquis 5 mg tablet RxNorm: 2799084 Take 1 Tablet(s) Oral BID 01/05/20 21 022 Inactive Eliquis 5 mg tablet RxNorm: 6976628 Take 2 Tablet(s) Oral QD 01/01/20 21 021 Inactive Lyrica 50 mg capsule RxNorm: 251363 Take 1 Capsule(s) Oral QAM every morning 12/24/19 21 021 Inactive Lyrica 100 mg capsule RxNorm: 177223 Take 1 Capsule(s) Oral QHS every night at bedtime 12/24/19 21 021 Inactive clotrimazole 1 % topical cream RxNorm: 411977 Apply to right foot and toes Topical BID 12/04/19 21 023 Inactive metoprolol succinate ER 200 mg tablet,extended release 24 hr RxNorm: 333347 Take 1 Tablet(s) Oral QD 12/04/19 21 023 Inactive ciprofloxacin 500 mg tablet RxNorm: 944500 Take 1 Tablet(s) Oral QD 11/30/19 21 021 Inactive DX ofloxacin otic drops Accu-Chek Guide test strips RxNorm: USE 1 TO CHECK GLUCOSE 4 TIMES DAILY AND NEEDED 11/15/19 21 023 Inactive Blood Glucose Test strips RxNorm: Use 1 Test Strip QID at PRN 11/05/19 21 023 Inactive E11.42 lisinopril 30 mg tablet RxNorm: 274754 Take 1 Tablet(s) Oral QD 10/30/19 021 Inactive lisinopril 20 mg tablet RxNorm: 416890 Take 1 Tablet(s) Oral QD 10/23/19 21 021 Inactive lisinopril 20 mg tablet RxNorm: 250642 Take 1 Tablet(s) Oral QD 10/23/19 21 021 Inactive lisinopril 10 mg tablet RxNorm: 801422 Take 1 Tablet(s) Oral QD 10/02/19 21 021 Inactive icosapent ethyl 1 gram capsule RxNorm: 4552282 Take 2 Capsule(s) (2 gm) Oral BID with meals 09/12/19 21 022 Inactive Okay to dispense one 2gm tab if you have that available. icosapent ethyl 1 gram capsule RxNorm: 7965041 Take 2 Capsule(s) Oral BID 09/12/19 21 021 Inactive Okay to dispense one 2gm tab if you have that available. amlodipine 10 mg tablet RxNorm: 006245 Take 1 Tablet(s) Oral QD 09/04/19 21 022 Inactive aspirin 81 mg tablet,delayed release RxNorm: 688204 Take 1 Tablet(s) Oral QD 09/04/19 21 021 Inactive Levemir FlexTouch U-100 Insulin 100 unit/mL (3 mL) subcutaneous pen RxNorm: 043213 Inject 150 Unit(s) Subcutaneous BID 09/04/19 21 022 Inactive venlafaxine ER 150 mg tablet,extended release 24 hr RxNorm: 368944 Take 1 Tablet(s) Oral QD 09/04/19 21 Inactive clotrimazole-betame thasone 1 %-0.05 % topical cream RxNorm: 947915 Apply to rash on red area on left abdomen/chest Topical BID 08/10/19 21 Inactive amlodipine 5 mg tablet RxNorm: 430524 Take 1 Tablet(s) Oral QD 07/31/19 21 Inactive cephalexin 500 mg tablet RxNorm: 253774 Take 1 Tablet(s) Oral BID BID - Twice Daily 07/31/19 21 021 Inactive Start 08/01/20 pantoprazole 40 mg tablet,delayed release RxNorm: 180127 Take 1 Tablet(s) Oral QAM every morning 07/08/19 022 Inactive senna 8.6 mg tablet RxNorm: 041683 Take 1 Tablet(s) Oral QD 07/08/19 022 Inactive carbamazepine 200 mg tablet RxNorm: 542444 Take 1 Tablet(s) Oral BID 07/08/19 022 Inactive clopidogrel 75 mg tablet RxNorm: 000712 Take 1 Tablet(s) Oral QD 07/08/19 021 Inactive Blood Glucose Test strips RxNorm: Use 1 Test Strip QID at PRN 07/08/19 21 021 Inactive E11.42 Novolog Flexpen U-100 Insulin aspart 100 unit/mL (3 mL) subcutaneous RxNorm: 6776495 Administer per sliding scale Milliliter(s) Subcutaneous TID 151-200: 10 u; 201-250: 20 u; 251-300: 30 u; 301-350: 40 u; 351-400: 50 u. 07/08/19 022 Inactive lisinopril 5 mg tablet RxNorm: 717055 Take 1 Tablet(s) Oral QD 07/08/19 021 Inactive Novolog Flexpen U-100 Insulin aspart 100 unit/mL (3 mL) subcutaneous RxNorm: 5406389 Inject 85 Unit(s) Subcutaneous TID 07/08/19 022 Inactive pravastatin 80 mg tablet RxNorm: 050418 Take 1 Tablet(s) Oral QHS every night at bedtime 07/08/19 023 Inactive clotrimazole 1 % topical cream RxNorm: 924069 Apply to bilateral groin areas Topical BID 07/08/19 022 Inactive metoprolol succinate ER 200 mg tablet,extended release 24 hr RxNorm: 421600 Take 1 Tablet(s) Oral QD 07/08/19 021 Inactive Vitamin D3 25 mcg (1,000 unit) tablet RxNorm: 582322 Take 1 Tablet(s) Oral QD 07/08/19 021 Inactive isosorbide dinitrate 30 mg tablet RxNorm: 569221 Take 1 Tablet(s) Oral QD 07/08/19 021 Inactive Levemir FlexTouch U-100 Insulin 100 unit/mL (3 mL) subcutaneous pen RxNorm: 018732 Inject 140 Unit(s) Subcutaneous BID 07/08/19 021 Inactive torsemide 20 mg tablet RxNorm: 333165 Take 1 Tablet(s) Oral QD 07/08/19 023 Inactive venlafaxine 75 mg tablet RxNorm: 400244 Take 1 Tablet(s) Oral QD 07/08/19 021 Inactive acetaminophen 500 mg tablet RxNorm: 092189 Take 1 Tablet(s) Oral TID as needed for headache 06/18/19 021 Inactive acetaminophen 500 mg tablet RxNorm: Take 1 Tablet(s) Oral TID as needed for headache 06/18/19 021 Inactive Lyrica 100 mg capsule RxNorm: 592174 Take 1 Capsule(s) Oral QHS every night at bedtime 06/11/19 21 021 Inactive Lyrica 50 mg capsule RxNorm: 448552 Take 1 Capsule(s) Oral QAM every morning 06/10/19 21 Inactive hydrocortisone 2.5 % topical cream RxNorm: 152573 Apply to bilateral groin creases Topical BID 05/15/20 20 021 Inactive clotrimazole 1 % topical cream RxNorm: 675830 Apply to bilateral groin areas Topical BID 05/15/20 20 021 Inactive Lyrica 50 mg capsule RxNorm: 180024 Take 1 Capsule(s) Oral QAM every morning 05/14/20 20 Inactive Lyrica 100 mg capsule RxNorm: 367906 Take 1 Capsule(s) Oral QHS every night [...] Inactive Nystop 100,000 unit/gram topical powder RxNorm: 659641 Apply to abd folds, under breasts and L side of groin Topical BID x 14 days, then BID PRN 04/08/20 20 020 Inactive dx: yeast dermatitis Lyrica 100 mg capsule RxNorm: 066140 Take 1 Capsule(s) Oral QHS every night at bedtime 03/13/20 20 10/28/2 020 Inactive Lyrica 50 mg capsule RxNorm: 094970 Take 1 Capsule(s) Oral QAM every morning 03/13/20 20 Inactive ketoconazole 2 % shampoo RxNorm: 417225 Apply Topical two times a week with showers 03/11/20 20 Inactive cholecalciferol (vitamin D3) 50 mcg (2,000 unit) tablet RxNorm: 990742 Take 1 Tablet(s) Oral QD 03/11/20 20 Inactive Zetia 10 mg tablet RxNorm: 109877 Take 1 Tablet(s) Oral QD 03/07/20 20 Inactive Zetia 10 mg tablet RxNorm: 066524 Take 1 Tablet(s) Oral QD 03/07/20 20 Inactive Lyrica 50 mg capsule RxNorm: 926370 Take 1 Capsule(s) Oral QAM every morning 02/15/20 20 Inactive Lyrica 100 mg capsule RxNorm: 276791 Take 1 Capsule(s) Oral QHS every night at bedtime 02/15/20 20 Inactive Lyrica 100 mg capsule RxNorm: 661848 Take 1 Capsule(s) Oral QHS every night at bedtime 02/15/20 20 Inactive Lyrica 50 mg capsule RxNorm: 661182 Take 1 Capsule(s) Oral QAM every morning 02/15/20 20 Inactive polyethylene glycol 3350 17 gram/dose oral powder RxNorm: 137614 Take 17=1 capful Gram(s) Oral BID as needed mix with 4-8oz of liquid 06/12/2021 Activemetoprolol succinate ER 200 mg tablet,extended release 24 hrRxNorm: 967384 Take 1 Tablet(s) Oral QD08/11/2022ctiveloperamide 2 mg capsuleRxNorm: 464021 Take 1 Capsule(s) Oral QID as mgudqd9606/12/2021ctivehydralazine 50 mg tablet RxNorm: 756301Ypyu 1 Tablet(s) Oral QID08/11/2022ctivevenlafaxine ER 75 mg capsule,extended release 24 hrRxNorm: 199243Altj 3 Capsule(s) Oral QD06/12/2021 02/01/2023Inactiveicosapent ethyl 1 gram capsuleRxNorm: 5413351Ndpr 2 Capsule(s) (2 gm) Oral BID with meals/InactiveOkay to dispense one 2gm tab if you have that available.Levemir FlexTouch U-100 Insulin 100 unit/mL (3 mL) subcutaneous penRxNorm: 864274Droako 80 Unit(s) Subcutaneous BID07/14/2022 07/12/2022InactiveNovolog Flexpen U-100 Insulin aspart 100 unit/mL (3 mL) subcutaneousRxNorm: 1543328Nfjxgl 30 Unit(s) Subcutaneous TID with meals Inactive Medication Administered No Medication Administered data Vital Signs Date Vital 03/10/2023 Height: 5'5 Code: 8302-2 Weight : Code: 3141-9 Reason For Visit No Reason For Visit data Encounters Encounter Performer Location Location Address Codes Cristiano e ([id number]) Home or Residence Vi sit Est Pt - Moderate Level, 40 mins Diagnosis: Hyperlipidemia, unspecified[ICD10: E78.5] Diagnosis: Candidal intertrigo[ICD10: B37.2] Diagnosis: BMI 60.0-69.9, adult[ICD10: Z68.44] Diagnosis: Type 2 diabetes mellitus with diabetic polyneuropathy, with long-term current use of insulin[ICD10: E11.42] Diagnosis: Hyperlipidemia associated with type 2 diabetes mellitus[ICD10: E11.69] Diagnosis: Stage 2 chronic 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[ICD10: E11.22]Chelo Calixto [place] [id number] [place] [id number]- 4: [id number] Plan of Care Planned Activity Notes Codes Status Date Care Plan: Lipid Panel (LP) draw the week of Fniccwj0103/12/2023atient Education: Patient Medication SummaryCompleted 03/10/2023atient Education: YggebdgybSbfimcemk53/25/2023ppointment: Sandra Clark WPtel: [address] [id number] [facility] Follow Up12/09/2022ppointment: Yola Shirleyy WPtel: [address] [id number] USTCM10/26/2022Referral: [facility] WPtel: [address], [address] [id number] USReferralRecords Chzxufjo66/08/2023ppointment: Shirley Rosalina WPtel: [address] [facility] [address] [id number] USF/U008/11/2022ppointment: Rosalina Shirley WPtel: [address] [facility] [address] [id number] USF/U007/14/2022ppointment: Rosalina Shirley WPtel: [address] [id number] USF/U002/10/2022eferral: [facility] WPtel: [address] [facility] [address] [id number] SOEnxbnrqlMdclvazlk19/12/2022Referral: General CardiologyReferralCompleted 1Referral: General PsychologistReferralClosedReferral: General PsychiatristReferralNeed [...] Sister Jyotsna involved in his care cell# [phone] Guardian: Don (rosalina met in person 09/01/21), now has Lexii (same group as don)Lab Schedule: * 02/08/2023 Hyperlipidemia Lab order: FLP?? Diabetes DM2: High dose insulin. Needs to follow up with endocrinology. Staff aware and have been instructedto help set up an appointment.?? Continue mealtime insulin 100U TID?? Continue Levemir 30U BID HLD: Trigs >1500. Discussed dangers of severely elevated lipids and tryglicerides. He makes poor dietary choices but is also very limited in terms of food choices. Will eat whatever the staff give me and does not advocate for a heart healthy diet. Needs to be on high intensity statin.? Continue Rosuvastatin 20mg QD. Plan to titrate to max dose depending on tolerability Continue Zetia 10mg QD Recheck FLP Candidal intertrigo Sending clotrimazole 1% cream BID x 14 days BMI 60.0-69.9, adult Discussed attempting to participate in more activity around the house and exercise as tolerated. Onozempic .03/10/2023
--- OUTSIDE RECORDS SUMMARY | 2023-04-01 08:36 | XMS_ITS | CCD ---
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 Human Resources Intern Name Role Phone Chelo Fonseca PA-C Primary Care Provider Unavaila ble Chelo Fonseca PA-C Chronic Care Management Nicole archer Summary Purpose DataExchange Insurance Providers Payer name Policy type / Coverage type Covered constitution party ID Effective Begin Date Effective End Date [place] [id number] Unknown Unknown [place] [id number] Unknown Unknown Family history Sister Brittany Suggs [...] Alf 09/03/[address]: 8312458 Non-Smoker / No History of Smoking 09/02/[address]: 783539093 No Alcohol Consum ption 09/02/2020 Allergies, Adverse Reactions, Alerts Substance Reaction Codes Entered Date Inactivated Date Status LISINOPRIL RxNorm: 7364388No Inactive DateActiveMetformin MWvWnkauer32/28/2020No Inactive DateActive Problems Condition Codes Effective Dates [...] ICD-9: 315.210/ctiveMajor depression, recurrentICD-10: F33.9 ICD-9: 296.3010/ctiveOther half-way (current) drug therapyICD-10: Z79.899 ICD-9: V58.6910/ctiveRecurrent major depressive disorder, in partial remissionICD-10: F33.41 ICD-9: 296.3510/ctiveCoronary artery disease involving sokaogon coronary artery of sokaogon heart, angina presence unspecifiedICD-10: I25.10 ICD-9: 414.0110/ctiveAnnual [...] vascular disease)ICD-10: I73.9 ICD-9: 443.909/2ActiveDepressionICD-10: F32.9 ICD-9: 20429/esolvedDVT (deep venous thrombosis)ICD-10: I82.409 ICD-9: 453.4009/esolvedEncounter for immunizationICD-10: Z23 ICD-9: V03.8909/esolvedLong term (current) use of insulinICD-10: Z79.4 09esolvedMuscular painICD-10: M79.10 ICD-9: 729.109/2ResolvedDandruff in adultICD-10: L21.0 ICD-9: 690.1808ctiveHypertension associated with diabetesICD-10: E11.59 ICD-9: 250.80082ResolvedHistory of anemia due to CKDICD-10: N18.9 ICD-9: 585.907/2ActiveStage 2 chronic kidney diseaseICD-10: N18.2 ICD-9: 585.207/ctiveGout due to renal impairmentICD-10: M10.30 ICD-9: 274.1006ctiveSkin tagICD-10: L91.8 ICD-9: 701.911/ctiveCallus of heelICD-10: L84 ICD-9: 87114/1ActiveImpacted cerumen, left earICD-10: H61.22 ICD-9: 380.408/ctiveContact with and (suspected) exposure to covid-19 ICD-10: Z20.822 ICD-9: V01.79081ResolvedOther infective acute otitis externa of left ear ICD-10: H60.392 ICD-9: 380.1008/esolvedScrotal skin lesionICD-10: N50.9 ICD-9: 608.908esolvedAnemia due to stage 3b chronic kidney diseaseICD- 10: N18.32 ICD-9: 285.2105esolvedChronic kidney disease, stage 3 unspecifiedICD- 10: N18.3004/esolvedContact with and (suspected) exposure to other viral communicable diseasesICD-10: Z20.828 ICD-9: V01.7902esolvedHyperhidrosis of palmsICD-10: L74.512 ICD-9: 705.5161AdkhxmOqdnugyfRdnqktf52/28/2020ActiveDiabetes mellitus Type 7Gzxlwmz93/28/2020ActiveAnemia in chronic kidney diseaseICD-10: D63.1 02/12/2020ResolvedHyperlipidemia, unspecifiedICD-10: E78.Resolved Medications Medication Codes Instructions Start Date Stop Date Status Fill Instructions clotrimazole 1 % topical cream RxNorm: 527361 Take apply topically to abdominal folds twice daily for 14 days 03/12/20 23 023 Active Ozempic 1 mg/dose (4 mg/3 mL) subcutaneous pen injector RxNorm: 1251811 Inject 1 Milligram(s) Subcutaneous QW once a week 03/11/20 23 023 Inactive rosuvastatin 20 mg tablet RxNorm: 381380 Take 1 Tablet(s) Oral QD 02/26/20 23 024 Active d/c pravastatin 80mg Ozempic 1 mg/dose (4 mg/3 mL) subcutaneous pen injector RxNorm: 6463536 Inject 1 Milligram(s) Subcutaneous QW once a week 02/20/20 23 023 Inactive pregabalin 150 mg capsule RxNorm: 797430 Take 1 Capsule(s) Oral HS at bed time 02/19/20 23 023 Inactive pregabalin 100 mg capsule RxNorm: 704681 Take 1 Capsule(s) Oral QAM every morning 02/18/20 23 024 Active FreeStyle Chema 2 Sensor kit RxNorm: use as directed 02/04/20 23 024 Active venlafaxine ER 75 mg capsule,extended release 24 hr RxNorm: 178199 Take 3 Capsule(s) Oral QD 02/04/20 23 023 Inactive FreeStyle Chema 2 Sensor kit RxNorm: use as directed 02/04/20 23 023 Inactive fluconazole 150 mg tablet RxNorm: 141466 Take 1 Tablet(s) Oral on day 3 and on day 6 02/03/20 23 024 Active chlorthalidone 25 mg tablet RxNorm: 547761 Take 1 Tablet(s) Oral QAM every morning 02/03/20 23 No Stop Date Active venlafaxine ER 150 mg capsule,extended release 24 hr RxNorm: 919757 Take 1 Capsule(s) Oral QD 02/03/20 023 Inactive acetaminophen 500 mg tablet RxNorm: 054920 1 TABLET ORALLY 3 TIMES DAILY (MAX APAP:4GM/24HR) 12/15/19 024 Active potassium chloride ER 20 mEq tablet,extended release RxNorm: 007894 Take 1 Tablet(s) Oral BID 12/09/19 023 Inactive d/c 20mEq once daily (sent from hospital) clotrimazole 1 % topical cream RxNorm: 072397 apply 1g topically to top of feet and in between toes BID 12/09/19 023 Inactive nystatin 100,000 unit/gram topical powder RxNorm: 845920 APPLY TO AFFECTED AREAS TOPICALLY 2 TIMES DAILY 11/21/19 23 024 Active Nystop 100,000 unit/gram topical powder RxNorm: 035821 Apply to abd folds, under breasts and L side of groin Topical BID x 14 days, then BID PRN 11/20/19 023 Inactive dx: yeast dermatitis [place] Ultra Strength 4 %-30 %-10 % topical cream RxNorm: 424270 Apply 1 Gram(s) Topical QID PRN to feet and legs for neuropathic pain 11/11/19 024 Active hydrocortisone 2.5 % topical cream RxNorm: 276054 Apply 1/2 Gram(s) Topical BID as needed 11/10/19 No Stop Date Active clotrimazole 1 % topical cream RxNorm: 186822 Apply 1/2 Gram(s) Topical BID Apply to affected areas of groin, periarea, and abdominal topically 2 times daily 11/10/19 023 Inactive Levemir FlexPen 100 unit/mL (3 mL) solution subcutaneous insulin pen RxNorm: 594549 Inject 30 Unit(s) Subcutaneous BID 10/07/19 23 024 Active Humulin R U-500 (Concentrated) Insulin 500 unit/mL subcutaneous soln RxNorm: 496147 Inject 100 Unit(s) Subcutaneous TID 10/07/19 024 Active Ozempic 0.25 mg or 0.5 mg (2 mg/3 mL) subcutaneous pen injector RxNorm: 2892204 Inject 1/2 Milligram(s) Subcutaneous QW once a week 10/07/19 024 Active aripiprazole 15 mg tablet RxNorm: 868156 1/2 TAB (7.5MG) ORALLY DAILY (DX:MAJOR DEPRESSIVE DISORDER) 09/23/19 23 023 Inactive Lancets,Thin 28 gauge RxNorm: Use 1 as directed QID 09/15/19 23 024 Active Accu-Chek Guide test strips RxNorm: Use 1 Test Strip QID 09/15/19 023 Inactive ok to substitute with any covered alternative test strip torsemide 20 mg tablet RxNorm: 074924 Take 1 Tablet(s) Oral BID 09/09/19 024 Active d/c once daily dosing carvedilol 25 mg tablet RxNorm: 639344 Take 1 Tablet(s) Oral QD 08/25/19 23 024 Active pregabalin 150 mg capsule RxNorm: 530649 1 Capsule(s) Oral HS at bed time 08/18/19 23 023 Inactive pregabalin 100 mg capsule RxNorm: 153626 1 Capsule(s) Oral QAM every morning 08/18/19 23 023 Inactive carvedilol 25 mg tablet RxNorm: 339729 1 Tablet(s) Oral QD 07/28/19 23 023 Inactive lisinopril 20 mg tablet RxNorm: 894838 Give 1 Tablet(s) Oral QD 07/28/19 23 023 Inactive Lyrica 150 mg capsule RxNorm: 713547 Take 1 Capsule(s) Oral QHS every night at bedtime 07/19/19 23 023 Inactive d/c 100mg dose Diflucan 150 mg tablet RxNorm: 527799 Take 1 Tablet(s) Oral QD repeat on day 3 and 6 07/19/19 23 023 Inactive pregabalin 100 mg capsule RxNorm: 534813 Take 1 Capsule(s) Oral QAM every morning 07/19/19 23 023 Inactive gatifloxacin 0.5 % eye drops RxNorm: 085507 Instill 1 Drop(s) as directed TID Instill 1 drop in to affected eye(s) starting 1 day prior to surgery and continue until gone (do not exceed 4 weeks). 07/13/19 023 Inactive carvedilol 25 mg tablet RxNorm: 621889 2 Tablet(s) Oral BID 07/13/19 023 Inactive Humulin R Regular U-100 Insulin 100 unit/mL injection solution RxNorm: 408375 85 Unit(s) Injection TID 07/13/19 023 Inactive ketorolac 0.5 % eye drops RxNorm: 679715 Instill 1 Drop(s) as directed QID Instill 1 drop into affected eye(s) 4 times daily starting 1 day prior to surgery and continue until gone (do not exceed 4 weeks). 07/13/19 023 Inactive Diflucan 150 mg tablet RxNorm: 752702 Take 1 Tablet(s) Oral QD repeat on day 3 and 6 06/30/19 023 Inactive Accu-Chek Guide test strips RxNorm: Use 1 Test Strip QID Use 1 test strip to monitor blood glucose 4 times daily and as needed. Dx:E11.42. 06/23/19 23 023 Inactive ok to substitute with any covered alternative test strip dextromethorphan-gu aifenesin 10 mg-100 mg/5 mL oral liquid RxNorm: 564847 Take 10 Milliliter(s) Oral every 4 hours as needed for cough 06/19/19 23 023 Inactive dextromethorphan-gu aifenesin 10 mg-100 mg/5 mL oral liquid RxNorm: 592136 Take 10 Milliliter(s) Oral every 4 hours as needed for cough 06/19/19 23 023 Inactive Lyrica 150 mg capsule RxNorm: 606376 Take 1 Capsule(s) Oral QHS every night at bedtime 06/18/19 23 023 Inactive d/c 100mg dose aripiprazole 15 mg tablet RxNorm: 778716 1/2 TAB (7.5MG) ORALLY DAILY (DX:MAJOR DEPRESSIVE DISORDER) 01/ 023 Inactive pregabalin 100 mg capsule RxNorm: 134825 1 Capsule(s) Oral QAM every morning 06/02/19 023 Inactive Banophen 50 mg capsule RxNorm: 9439134 Take 1 Capsule(s) Oral Q6H every 6 hours as needed 05/19/19 No Stop Date Active Novolog Flexpen U-100 Insulin aspart 100 unit/mL (3 mL) subcutaneous RxNorm: 6458190 Inject 10 Unit(s) Subcutaneous QHS every night at bedtime with nighttime snack 04/08/20 Inactive Novolog Flexpen U-100 Insulin aspart 100 unit/mL (3 mL) subcutaneous RxNorm: 3971812 Inject 42 Unit(s) Subcutaneous TID in addition to sliding scale 04/08/20 Inactive d/c 36u albuterol sulfate HFA 90 mcg/actuation aerosol inhaler RxNorm: 5664194 Take 2 Puff(s) Inhalation Q4H every four hours as needed as needed for SOB, cough, or wheezing 04/07/20 030 Active Banophen 50 mg capsule RxNorm: 9676512 Take 1 Capsule(s) Oral Q6H every 6 hours as needed 04/06/20 023 Inactive diphenhydramine 50 mg tablet RxNorm: 6883015 Take 1 Tablet(s) Oral Q6H every 6 hours as needed 04/06/20 022 Inactive diphenhydramine 50 mg tablet RxNorm: 9987294 1 Tablet(s) Oral Q6H every 6 hours as needed 04/06/20 022 Inactive Abilify 15 mg tablet RxNorm: 703654 1/2 Tablet(s) Oral QD 03/10/20 22 023 Inactive Shingrix (PF) 50 mcg/0.5 mL intramuscular suspension, kit RxNorm: 9194981 Administer 1/2 Milliliter(s) Intramuscular QD one time shingrix step 2 ( step 1 given 11/04/21) WITH needle - Nursing please administer upon arrival and once administered post a bridge message with date of administration, interpreter translator, expiration date, and lot# so we can update [facility] 02/18/20 22 022 Inactive dispense with needle Shingrix (PF) 50 mcg/0.5 mL intramuscular suspension, kit RxNorm: 4944335 Administer 1/2 Milliliter(s) Intramuscular QD one time shingrix step 2 ( step 1 given 11/04/21) WITH needle - Nursing please administer upon arrival and once administered post a bridge message with date of administration, interpreter translator, expiration date, and lot# so we can update [facility] 02/18/20 22 Inactive dispense with needle polyethylene glycol 3350 17 gram/dose oral powder RxNorm: 872878 Take 17=1 capful Gram(s) Oral QD mix with 4-8oz of liquid 01/08/20 023 Inactive take this in addition to BID prn order Lyrica 100 mg capsule RxNorm: 118569 Take 1 Capsule(s) Oral QAM every morning 01/08/20 22 022 Inactive d/c 50mg dose acetaminophen 500 mg tablet RxNorm: 642090 Take 1 Tablet(s) Oral TID 01/08/20 22 022 Inactive d/c PRN order Lyrica 150 mg capsule RxNorm: 647983 Take 1 Capsule(s) Oral QHS every night at bedtime 01/08/20 22 023 Inactive d/c 100mg dose Abilify 5 mg tablet RxNorm: 945393 Take 1 Tablet(s) Oral QD take 1 tab po QD #30 refill 5 dx: MDD 12/12/19 22 022 Inactive Abilify 5 mg tablet RxNorm: 750067 Take 1 Tablet(s) Oral QD take 1 tab po QD #30 refill 5 dx: MDD 12/12/19 22 022 Inactive Novolog Flexpen U-100 Insulin aspart 100 unit/mL (3 mL) subcutaneous RxNorm: 2279563 Inject 42 Unit(s) Subcutaneous TID in addition to sliding scale 12/10/19 22 022 Inactive d/c 36u chlorthalidone 25 mg tablet RxNorm: 196410 Take 1 Tablet(s) Oral QAM every morning 12/10/19 22 023 Inactive pregabalin 50 mg capsule RxNorm: 855271 Take 1 Capsule(s) Oral QAM every morning 11/12/19 22 022 Inactive tetanus-diphtheria toxoids-Td 2 Lf unit-2 Lf unit/0.5 mL IM suspension RxNorm: 139 Take 0.5 Miscellaneous Intramuscular 11/12/19 22 022 Inactive need tdap - nursing to administer upon arrival pregabalin 50 mg capsule RxNorm: 672390 Take 1 Capsule(s) Oral QAM every morning 10/16/19 22 022 Inactive pregabalin 50 mg capsule RxNorm: 186936 Take 1 Capsule(s) Oral QAM every morning 10/16/19 22 022 Inactive pregabalin 50 mg capsule RxNorm: 643404 1 Capsule(s) Oral QAM every morning 10/15/19 22 022 Inactive Shingrix (PF) 50 mcg/0.5 mL intramuscular suspension, kit RxNorm: 3969153 Administer 1/2 Milliliter(s) Intramuscular one time Nursing please administer upon arrival and once administered post a bridge message with date of administration, interpreter translator, expiration date, and lot# so we can update [facility]. 10/09/19 22 022 Inactive shingrix step 1 Shingrix (PF) 50 mcg/0.5 mL intramuscular suspension, kit RxNorm: 3168238 Administer 1/2 Milliliter(s) Intramuscular one time Nursing please administer upon arrival and once administered post a bridge message with date of administration, interpreter translator, expiration date, and lot# so we can update [facility]. 10/09/19 22 022 Inactive shingrix step 1 cholecalciferol (vitamin D3) 1,250 mcg (50,000 unit) capsule RxNorm: 975387 Take 1 Capsule(s) Oral QW once a [...] aspart 100 unit/mL (3 mL) subcutaneous RxNorm: 8629053 Inject 10 Unit(s) Subcutaneous QHS every night at bedtime with nighttime snack 10/08/19 22 Inactive Shingrix (PF) 50 mcg/0.5 mL intramuscular suspension, kit RxNorm: 5096034 ADMINISTER 2-DOSE SERIES PER CDC GUIDELINES 10/08/19 22 Active Shingrix (PF) 50 mcg/0.5 mL intramuscular suspension, kit RxNorm: 1910288 ADMINISTER 2-DOSE SERIES PER CDC GUIDELINES 10/08/19 22 Inactive Novolog Flexpen U-100 Insulin aspart 100 unit/mL (3 mL) subcutaneous RxNorm: 9772041 Inject 36 Unit(s) Subcutaneous TID in addition to sliding scale 10/08/19 22 Inactive Novofine Autocover 30 gauge x 1/3 needle RxNorm: Use 1 Miscellaneous UD as directed Use 1 needle as directed to administer insulin 5 times a day Dx:E11.42. 10/03/19 Inactive ok to substitute with any covered alternative pen needle benzoyl peroxide 10 % topical cleanser RxNorm: 140381 Apply 1 Application Topical QD apply to face, wash rinse and dry once daily (may change to QOD if drying) 08/19/19 22 022 Inactive (%covered by insurance) #60ml refill 11 dx: acne benzoyl peroxide 10 % topical cleanser RxNorm: 534497 Apply 1 Application Topical QD apply to face, wash rinse and dry once daily (may change to QOD if drying) 08/19/19 22 022 Inactive (%covered by insurance) #60ml refill 11 dx: acne benzoyl peroxide 10 % topical cleanser RxNorm: 442173 Apply 1 Application Topical QD apply to face, wash rinse and dry once daily (may change to QOD if drying) 08/19/19 22 022 Inactive (%covered by insurance) #60ml refill 11 dx: acne Lyrica 50 mg capsule RxNorm: 349624 Take 1 Capsule(s) Oral QAM every morning Take 1 capsule by mouth once daily 08/19/19 22 022 Inactive benzoyl peroxide 10 % topical cleanser RxNorm: 374508 Apply 1 Application Topical QD apply to face, wash rinse and dry once daily (may change to QOD if drying) 08/19/19 22 022 Inactive (%covered by insurance) #60ml refill 11 dx: acne Lyrica 100 mg capsule RxNorm: 345618 Take 1 Capsule(s) Oral QHS every night at bedtime Take 1 capsule by mouth once daily at bedtime 08/19/19 022 Inactive Lyrica 100 mg capsule RxNorm: 799018 Take 1 Capsule(s) Oral QHS every night at bedtime Take 1 capsule by mouth once daily at bedtime 08/16/19 22 022 Inactive Lyrica 50 mg capsule RxNorm: 362870 Take 1 Capsule(s) Oral QAM every morning Take 1 capsule by mouth once daily 08/16/19 22 022 Inactive Levemir FlexTouch U-100 Insulin 100 unit/mL (3 mL) subcutaneous pen RxNorm: 984029 Inject 86 Unit(s) Subcutaneous BID 08/05/19 22 022 Inactive d/c 83units BID Lyrica 100 mg capsule RxNorm: 907250 Take 1 Capsule(s) Oral QHS every night at bedtime Take 1 capsule by mouth once daily at bedtime 07/14/19 22 022 Inactive Lyrica 50 mg capsule RxNorm: 222831 Take 1 Capsule(s) Oral QAM every morning Take 1 capsule by mouth once daily 07/14/19 22 022 Inactive Levemir FlexTouch U-100 Insulin 100 unit/mL (3 mL) subcutaneous pen RxNorm: 124851 Inject 83 Unit(s) Subcutaneous BID 07/08/19 22 022 Inactive d/c 80units BID Accu-Chek Guide Glucose Meter RxNorm: Use 1 Miscellaneous UD as directed Use glucose meter to monitor blood glucose 4 times daily and as needed. Dx:E11.42 01/20/20 22 01/20/2 022 Inactive ok to substitute [...] 30 mg tablet,extended release 24 hr RxNorm: 109355 Take 1 Tablet(s) Oral QD 05/05/20 No Stop Date Active hydralazine 50 mg tablet RxNorm: 873112 Take 1 Tablet(s) Oral QID 05/05/20 21 022 Inactive venlafaxine ER 225 mg tablet,extended release 24 hr RxNorm: 842169 Take 1 Tablet(s) Oral QD 05/05/20 21 021 Inactive venlafaxine ER 225 mg tablet,extended release 24 hr RxNorm: 893545 Take 1 Tablet(s) Oral QD 05/05/20 21 022 Inactive hydralazine 50 mg tablet RxNorm: 849494 Take 1 Tablet(s) Oral QID 05/05/20 21 021 Inactive aspirin 81 mg tablet,delayed release RxNorm: 714643 Take 1 Tablet(s) Oral QD 03/31/20 022 Inactive Zetia 10 mg tablet RxNorm: 711423 Take 1 Tablet(s) Oral QD 03/31/20 Inactive Vitamin D2 1,250 mcg (50,000 unit) capsule RxNorm: 2715897 Take 1 Capsule(s) Oral QW once a week x 12 weeks 03/31/20 022 Inactive Vitamin D2 1,250 mcg (50,000 unit) capsule RxNorm: 8042461 Take 1 Capsule(s) Oral QW once a week 03/31/20 Inactive Zetia 10 mg tablet RxNorm: 573808 Take 1 Tablet(s) Oral QD 03/31/20 Inactive hydralazine 25 mg tablet RxNorm: 679607 Take 1 Tablet(s) Oral QID 03/31/20 021 Inactive hydralazine 25 mg tablet RxNorm: 234004 Take 1 Tablet(s) Oral QID 03/31/20 021 Inactive hydralazine 10 mg tablet RxNorm: 467249 Take 1 Tablet(s) Oral QID 03/03/20 021 Inactive cephalexin 500 mg tablet RxNorm: 977664 Take 1 Tablet(s) Oral QID 02/27/20 021 Inactive cephalexin 500 mg tablet RxNorm: 954637 Take 1 Tablet(s) Oral QID 02/27/20 021 Inactive lisinopril 40 mg tablet RxNorm: 829905 Take 1 Tablet(s) Oral QD 02/11/20 023 Inactive Eliquis 5 mg tablet RxNorm: 2590487 Take 1 Tablet(s) Oral BID 01/05/20 21 022 Inactive Eliquis 5 mg tablet RxNorm: 5090576 Take 2 Tablet(s) Oral QD 01/01/20 21 021 Inactive Lyrica 50 mg capsule RxNorm: 806989 Take 1 Capsule(s) Oral QAM every morning 12/24/19 21 021 Inactive Lyrica 100 mg capsule RxNorm: 016487 Take 1 Capsule(s) Oral QHS every night at bedtime 12/24/19 21 021 Inactive clotrimazole 1 % topical cream RxNorm: 876068 Apply to right foot and toes Topical BID 12/04/19 21 023 Inactive metoprolol succinate ER 200 mg tablet,extended release 24 hr RxNorm: 640087 Take 1 Tablet(s) Oral QD 12/04/19 21 023 Inactive ciprofloxacin 500 mg tablet RxNorm: 735385 Take 1 Tablet(s) Oral QD 11/30/19 21 021 Inactive DX ofloxacin otic drops Accu-Chek Guide test strips RxNorm: USE 1 TO CHECK GLUCOSE 4 TIMES DAILY AND NEEDED 11/15/19 023 Inactive Blood Glucose Test strips RxNorm: Use 1 Test Strip QID at PRN 11/05/19 21 023 Inactive E11.42 lisinopril 30 mg tablet RxNorm: 960419 Take 1 Tablet(s) Oral QD 10/30/19 021 Inactive lisinopril 20 mg tablet RxNorm: 904032 Take 1 Tablet(s) Oral QD 10/23/19 021 Inactive lisinopril 20 mg tablet RxNorm: 693021 Take 1 Tablet(s) Oral QD 10/23/19 21 021 Inactive lisinopril 10 mg tablet RxNorm: 470823 Take 1 Tablet(s) Oral QD 10/02/19 21 021 Inactive icosapent ethyl 1 gram capsule RxNorm: 6847401 Take 2 Capsule(s) (2 gm) Oral BID with meals 09/12/19 21 022 Inactive Okay to dispense one 2gm tab if you have that available. icosapent ethyl 1 gram capsule RxNorm: 9979623 Take 2 Capsule(s) Oral BID 09/12/19 21 021 Inactive Okay to dispense one 2gm tab if you have that available. amlodipine 10 mg tablet RxNorm: 274843 Take 1 Tablet(s) Oral QD 09/04/19 022 Inactive aspirin 81 mg tablet,delayed release RxNorm: 815815 Take 1 Tablet(s) Oral QD 09/04/19 21 021 Inactive Levemir FlexTouch U-100 Insulin 100 unit/mL (3 mL) subcutaneous pen RxNorm: 532566 Inject 150 Unit(s) Subcutaneous BID 09/04/19 21 022 Inactive venlafaxine ER 150 mg tablet,extended release 24 hr RxNorm: 163966 Take 1 Tablet(s) Oral QD 09/04/19 21 Inactive clotrimazole-betame thasone 1 %-0.05 % topical cream RxNorm: 604888 Apply to rash on red area on left abdomen/chest Topical BID 08/10/19 21 Inactive amlodipine 5 mg tablet RxNorm: 158522 Take 1 Tablet(s) Oral QD 07/31/19 021 Inactive cephalexin 500 mg tablet RxNorm: 890320 Take 1 Tablet(s) Oral BID BID - Twice Daily 07/31/19 21 021 Inactive Start 08/01/20 pantoprazole 40 mg tablet,delayed release RxNorm: 614757 Take 1 Tablet(s) Oral QAM every morning 07/08/19 022 Inactive senna 8.6 mg tablet RxNorm: 464044 Take 1 Tablet(s) Oral QD 07/08/19 022 Inactive carbamazepine 200 mg tablet RxNorm: 338477 Take 1 Tablet(s) Oral BID 07/08/19 022 Inactive clopidogrel 75 mg tablet RxNorm: 101717 Take 1 Tablet(s) Oral QD 07/08/19 021 Inactive Blood Glucose Test strips RxNorm: Use 1 Test Strip QID at PRN 07/08/19 21 021 Inactive E11.42 Novolog Flexpen U-100 Insulin aspart 100 unit/mL (3 mL) subcutaneous RxNorm: 2859221 Administer per sliding scale Milliliter(s) Subcutaneous TID 151-200: 10 u; 201-250: 20 u; 251-300: 30 u; 301-350: 40 u; 351-400: 50 u. 07/08/19 022 Inactive lisinopril 5 mg tablet RxNorm: 807532 Take 1 Tablet(s) Oral QD 07/08/19 021 Inactive Novolog Flexpen U-100 Insulin aspart 100 unit/mL (3 mL) subcutaneous RxNorm: 6886584 Inject 85 Unit(s) Subcutaneous TID 07/08/19 022 Inactive pravastatin 80 mg tablet RxNorm: 332034 Take 1 Tablet(s) Oral QHS every night at bedtime 07/08/19 023 Inactive clotrimazole 1 % topical cream RxNorm: 854665 Apply to bilateral groin areas Topical BID 07/08/19 022 Inactive metoprolol succinate ER 200 mg tablet,extended release 24 hr RxNorm: 549581 Take 1 Tablet(s) Oral QD 07/08/19 021 Inactive Vitamin D3 25 mcg (1,000 unit) tablet RxNorm: 098995 Take 1 Tablet(s) Oral QD 07/08/19 021 Inactive isosorbide dinitrate 30 mg tablet RxNorm: 713830 Take 1 Tablet(s) Oral QD 07/08/19 021 Inactive Levemir FlexTouch U-100 Insulin 100 unit/mL (3 mL) subcutaneous pen RxNorm: 303134 Inject 140 Unit(s) Subcutaneous BID 07/08/19 021 Inactive torsemide 20 mg tablet RxNorm: 748863 Take 1 Tablet(s) Oral QD 07/08/19 023 Inactive venlafaxine 75 mg tablet RxNorm: 799186 Take 1 Tablet(s) Oral QD 07/08/19 021 Inactive acetaminophen 500 mg tablet RxNorm: 495288 Take 1 Tablet(s) Oral TID as needed for headache 06/18/19 21 021 Inactive acetaminophen 500 mg tablet RxNorm: Take 1 Tablet(s) Oral TID as needed for headache 06/18/19 021 Inactive Lyrica 100 mg capsule RxNorm: 793484 Take 1 Capsule(s) Oral QHS every night at bedtime 06/11/19 21 021 Inactive Lyrica 50 mg capsule RxNorm: 928475 Take 1 Capsule(s) Oral QAM every morning 06/10/19 21 021 Inactive hydrocortisone 2.5 % topical cream RxNorm: 814622 Apply to bilateral groin creases Topical BID 05/15/20 20 021 Inactive clotrimazole 1 % topical cream RxNorm: 790240 Apply to bilateral groin areas Topical BID 05/15/20 20 021 Inactive Lyrica 50 mg capsule RxNorm: 915507 Take 1 Capsule(s) Oral QAM every morning 05/14/20 20 020 Inactive Lyrica 100 mg capsule RxNorm: 631310 Take 1 Capsule(s) Oral QHS every night [...] Inactive Nystop 100,000 unit/gram topical powder RxNorm: 701494 Apply to abd folds, under breasts and L side of groin Topical BID x 14 days, then BID PRN 04/08/20 20 020 Inactive dx: yeast dermatitis Lyrica 100 mg capsule RxNorm: 936459 Take 1 Capsule(s) Oral QHS every night at bedtime 03/13/20 20 Inactive Lyrica 50 mg capsule RxNorm: 657948 Take 1 Capsule(s) Oral QAM every morning 03/13/20 20 Inactive ketoconazole 2 % shampoo RxNorm: 051979 Apply Topical two times a week with showers 03/11/20 Inactive cholecalciferol (vitamin D3) 50 mcg (2,000 unit) tablet RxNorm: 838098 Take 1 Tablet(s) Oral QD 03/11/20 Inactive Zetia 10 mg tablet RxNorm: 122914 Take 1 Tablet(s) Oral QD 03/07/20 20 Inactive Zetia 10 mg tablet RxNorm: 279090 Take 1 Tablet(s) Oral QD 03/07/20 20 Inactive Lyrica 50 mg capsule RxNorm: 836794 Take 1 Capsule(s) Oral QAM every morning 02/15/20 Inactive Lyrica 100 mg capsule RxNorm: 759164 Take 1 Capsule(s) Oral QHS every night at bedtime 02/15/20 Inactive Lyrica 100 mg capsule RxNorm: 922832 Take 1 Capsule(s) Oral QHS every night at bedtime 02/15/20 20 Inactive Lyrica 50 mg capsule RxNorm: 444368 Take 1 Capsule(s) Oral QAM every morning 02/15/20 20 Inactive polyethylene glycol 3350 17 gram/dose oral powder RxNorm: 863242 Take 17=1 capful Gram(s) Oral BID as needed mix with 4-8oz of liquid 06/12/2021 Activemetoprolol succinate ER 200 mg tablet,extended release 24 hrRxNorm: 660715 Take 1 Tablet(s) Oral QD08/11/2022ctiveloperamide 2 mg capsuleRxNorm: 100674 Take 1 Capsule(s) Oral QID as fbvefp8406/12/2021ctivehydralazine 50 mg tablet RxNorm: 708425Cief 1 Tablet(s) Oral QID08/11/2022ctivevenlafaxine ER 75 mg capsule,extended release 24 hrRxNorm: 295424Uadc 3 Capsule(s) Oral QD06/12/2021 02/01/2023Inactiveicosapent ethyl 1 gram capsuleRxNorm: 7412048Rbay 2 Capsule(s) (2 gm) Oral BID with meals/InactiveOkay to dispense one 2gm tab if you have that available.Levemir FlexTouch U-100 Insulin 100 unit/mL (3 mL) subcutaneous penRxNorm: 018886Ujzzes 80 Unit(s) Subcutaneous BID07/14/2022 07/12/2022InactiveNovolog Flexpen U-100 Insulin aspart 100 unit/mL (3 mL) subcutaneousRxNorm: 6697406Wwhqxv 30 Unit(s) Subcutaneous TID with meals /Inactive Medication Administered No Medication Administered data Reason For Visit No Reason For Visit data Plan of Care Planned Activity Notes Codes Status Date Referral: [facility] WPtel: [phone], [address] [id number] USReferralRecords Cfzoapic32/08/2023Referral: [facility] WPtel: [address] [id number] EDNgvhijydFvbteurov71/12/2022Referral: General CardiologyReferralCompleted 1Referral: General PsychologistReferralClosedReferral: General PsychiatristReferralNeed [...] Sister Jyotsna involved in his care cell# [phone] Guardian: Don (tapan met in person 09/01/21), now has Lexii (same group as don)Lab Schedule: /02/08/2023
--- OUTSIDE RECORDS SUMMARY | 2023-04-01 08:37 | XMS_ITS | CCD ---
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 Maintenance Welder Name Role Phone Chelo Fonseca PA-C Primary Care Provider Unavaila ble Chelo Fonseca PA-C Chronic Care Management Nicole archer Summary Purpose DataExchange Insurance Providers Payer name Policy type / Coverage type Covered libertarian ID Effective Begin Date Effective End Date Medicare [place] Medicare Part B [id number] Unknown Unknown Medicaid [place] B [id number] Unknown Unknown Family history Sister Brittany Suggs [...] Alf 09/03/[address]: 4316231 Non-Smoker / No History of Smoking 09/02/[address]: 913449900 No Alcohol Consum ption 09/02/2020 Allergies, Adverse Reactions, Alerts Substance Reaction Codes Entered Date Inactivated Date Status LISINOPRIL RxNorm: 8678735No Inactive DateActiveMetformin JRsIgrlcrz56/28/2020No Inactive DateActive Problems Condition Codes Effective Dates [...] ICD-9: 315.210/ctiveMajor depression, recurrentICD-10: F33.9 ICD-9: 296.3010/ctiveOther halfway (current) drug therapyICD-10: Z79.899 ICD-9: V58.6910/ctiveRecurrent major depressive disorder, in partial remissionICD-10: F33.41 ICD-9: 296.3510/ctiveCoronary artery disease involving [place] coronary artery of [place] heart, angina presence unspecifiedICD-10: I25.10 ICD-9: 414.0110/ctiveAnnual [...] vascular disease)ICD-10: I73.9 ICD-9: 443.909/2ActiveDepressionICD-10: F32.9 ICD-9: 29433/esolvedDVT (deep venous thrombosis)ICD-10: I82.409 ICD-9: 453.4009/esolvedEncounter for immunizationICD-10: Z23 ICD-9: V03.8909/esolvedLong term (current) use of insulinICD-10: Z79.4 09esolvedMuscular painICD-10: M79.10 ICD-9: 729.109/2ResolvedDandruff in adultICD-10: L21.0 ICD-9: 690.1808ctiveHypertension associated with diabetesICD-10: E11.59 ICD-9: 250.80082ResolvedHistory of anemia due to CKDICD-10: N18.9 ICD-9: 585.907/2ActiveStage 2 chronic kidney diseaseICD-10: N18.2 ICD-9: 585.207/ctiveGout due to renal impairmentICD-10: M10.30 ICD-9: 274.1006ctiveSkin tagICD-10: L91.8 ICD-9: 701.911/ctiveCallus of heelICD-10: L84 ICD-9: 72720/1ActiveImpacted cerumen, left earICD-10: H61.22 ICD-9: 380.408/ctiveContact with [...] Z20.828 ICD-9: V01.7902esolvedHyperhidrosis of palmsICD-10: L74.512 ICD-9: 705.2069XyhbdfAvrchweoCamsdpf53/28/2020ActiveDiabetes mellitus Type 6Jbtduic78/28/2020ActiveAnemia in chronic kidney diseaseICD-10: D63.1 02/12/2020ResolvedHyperlipidemia, unspecifiedICD-10: E78.Resolved Medications Medication Codes Instructions Start Date Stop Date Status Fill Instructions Accu-Chek Guide Glucose Meter RxNorm: Use 1 Miscellaneous UD as directed Use glucose meter to monitor blood glucose 4 times daily and as needed. Dx:E11.42 03/26/20 23 023 Inactive ok to substitute with any covered alternative meter Accu-Chek Guide test strips RxNorm: Use 1 Test Strip QID 03/26/20 23 024 Active ok to substitute with any covered alternative test strip clotrimazole 1 % topical cream RxNorm: 359657 Take apply topically to abdominal folds twice daily for 14 days 03/12/20 23 023 Active Ozempic 1 mg/dose (4 mg/3 mL) subcutaneous pen injector RxNorm: 3922499 Inject 1 Milligram(s) Subcutaneous QW once a week 03/11/20 23 023 Inactive rosuvastatin 20 mg tablet RxNorm: 223547 Take 1 Tablet(s) Oral QD 02/26/20 23 024 Active d/c pravastatin 80mg Ozempic 1 mg/dose (4 mg/3 mL) subcutaneous pen injector RxNorm: 1105604 Inject 1 Milligram(s) Subcutaneous QW once a week 02/20/20 23 023 Inactive pregabalin 150 mg capsule RxNorm: 414885 Take 1 Capsule(s) Oral HS at bed time 02/19/20 23 023 Inactive pregabalin 100 mg capsule RxNorm: 588314 Take 1 Capsule(s) Oral QAM every morning 02/18/20 23 024 Active FreeStyle Chema 2 Sensor kit RxNorm: use as directed 02/04/20 23 024 Active venlafaxine ER 75 mg capsule,extended release 24 hr RxNorm: 497121 Take 3 Capsule(s) Oral QD 02/04/20 23 023 Inactive FreeStyle Chema 2 Sensor kit RxNorm: use as directed 02/04/20 23 023 Inactive fluconazole 150 mg tablet RxNorm: 354849 Take 1 Tablet(s) Oral on day 3 and on day 6 02/03/20 024 Active chlorthalidone 25 mg tablet RxNorm: 077742 Take 1 Tablet(s) Oral QAM every morning 02/03/20 No Stop Date Active venlafaxine ER 150 mg capsule,extended release 24 hr RxNorm: 255093 Take 1 Capsule(s) Oral QD 02/03/20 023 Inactive acetaminophen 500 mg tablet RxNorm: 929591 1 TABLET ORALLY 3 TIMES DAILY (MAX APAP:4GM/24HR) 12/15/19 23 024 Active potassium chloride ER 20 mEq tablet,extended release RxNorm: 350256 Take 1 Tablet(s) Oral BID 12/09/19 023 Inactive d/c 20mEq once daily (sent from hospital) clotrimazole 1 % topical cream RxNorm: 407623 apply 1g topically to top of feet and in between toes BID 12/09/19 23 023 Inactive nystatin 100,000 unit/gram topical powder RxNorm: 634900 APPLY TO AFFECTED AREAS TOPICALLY 2 TIMES DAILY 11/21/19 23 024 Active Nystop 100,000 unit/gram topical powder RxNorm: 427171 Apply to abd folds, under breasts and L side of groin Topical BID x 14 days, then BID PRN 11/20/19 23 023 Inactive dx: yeast dermatitis [place] Ultra Strength 4 %-30 %-10 % topical cream RxNorm: 262692 Apply 1 Gram(s) Topical QID PRN to feet and legs for neuropathic pain 11/11/19 23 024 Active hydrocortisone 2.5 % topical cream RxNorm: 393329 Apply 1/2 Gram(s) Topical BID as needed 11/10/19 No Stop Date Active clotrimazole 1 % topical cream RxNorm: 247264 Apply 1/2 Gram(s) Topical BID Apply to affected areas of groin, periarea, and abdominal topically 2 times daily 11/10/19 23 023 Inactive Levemir FlexPen 100 unit/mL (3 mL) solution subcutaneous insulin pen RxNorm: 153475 Inject 30 Unit(s) Subcutaneous BID 10/07/19 024 Active Humulin R U-500 (Concentrated) Insulin 500 unit/mL subcutaneous soln RxNorm: 853903 Inject 100 Unit(s) Subcutaneous TID 10/07/19 024 Active Ozempic 0.25 mg or 0.5 mg (2 mg/3 mL) subcutaneous pen injector RxNorm: 5287348 Inject 1/2 Milligram(s) Subcutaneous QW once a week 10/07/19 024 Active aripiprazole 15 mg tablet RxNorm: 241825 1/2 TAB (7.5MG) ORALLY DAILY (DX:MAJOR DEPRESSIVE DISORDER) 09/23/19 023 Inactive Lancets,Thin 28 gauge RxNorm: Use 1 as directed QID 09/15/19 23 024 Active Accu-Chek Guide test strips RxNorm: Use 1 Test Strip QID 09/15/19 23 023 Inactive ok to substitute with any covered alternative test strip torsemide 20 mg tablet RxNorm: 193402 Take 1 Tablet(s) Oral BID 09/09/19 024 Active d/c once daily dosing carvedilol 25 mg tablet RxNorm: 720626 Take 1 Tablet(s) Oral QD 08/25/19 23 024 Active pregabalin 150 mg capsule RxNorm: 151461 1 Capsule(s) Oral HS at bed time 08/18/19 23 023 Inactive pregabalin 100 mg capsule RxNorm: 269956 1 Capsule(s) Oral QAM every morning 08/18/19 23 023 Inactive carvedilol 25 mg tablet RxNorm: 049758 1 Tablet(s) Oral QD 07/28/19 23 023 Inactive lisinopril 20 mg tablet RxNorm: 828595 Give 1 Tablet(s) Oral QD 07/28/19 23 023 Inactive Lyrica 150 mg capsule RxNorm: 723193 Take 1 Capsule(s) Oral QHS every night at bedtime 07/19/19 23 023 Inactive d/c 100mg dose Diflucan 150 mg tablet RxNorm: 127926 Take 1 Tablet(s) Oral QD repeat on day 3 and 6 07/19/19 23 023 Inactive pregabalin 100 mg capsule RxNorm: 481273 Take 1 Capsule(s) Oral QAM every morning 07/19/19 23 023 Inactive gatifloxacin 0.5 % eye drops RxNorm: 714704 Instill 1 Drop(s) as directed TID Instill 1 drop in to affected eye(s) starting 1 day prior to surgery and continue until gone (do not exceed 4 weeks). 07/13/19 23 023 Inactive carvedilol 25 mg tablet RxNorm: 442979 2 Tablet(s) Oral BID 07/13/19 23 023 Inactive Humulin R Regular U-100 Insulin 100 unit/mL injection solution RxNorm: 707077 85 Unit(s) Injection TID 07/13/19 23 023 Inactive ketorolac 0.5 % eye drops RxNorm: 202483 Instill 1 Drop(s) as directed QID Instill 1 drop into affected eye(s) 4 times daily starting 1 day prior to surgery and continue until gone (do not exceed 4 weeks). 07/13/19 23 023 Inactive Diflucan 150 mg tablet RxNorm: 327159 Take 1 Tablet(s) Oral QD repeat on day 3 and 6 06/30/19 23 023 Inactive Accu-Chek Guide test strips RxNorm: Use 1 Test Strip QID Use 1 test strip to monitor blood glucose 4 times daily and as needed. Dx:E11.42. 06/23/19 23 023 Inactive ok to substitute with any covered alternative test strip dextromethorphan-gu aifenesin 10 mg-100 mg/5 mL oral liquid RxNorm: 169951 Take 10 Milliliter(s) Oral every 4 hours as needed for cough 06/19/19 23 023 Inactive dextromethorphan-gu aifenesin 10 mg-100 mg/5 mL oral liquid RxNorm: 865137 Take 10 Milliliter(s) Oral every 4 hours as needed for cough 06/19/19 023 Inactive Lyrica 150 mg capsule RxNorm: 401173 Take 1 Capsule(s) Oral QHS every night at bedtime 06/18/19 023 Inactive d/c 100mg dose aripiprazole 15 mg tablet RxNorm: 365433 1/2 TAB (7.5MG) ORALLY DAILY (DX:MAJOR DEPRESSIVE DISORDER) 06/05/19 023 Inactive pregabalin 100 mg capsule RxNorm: 511614 1 Capsule(s) Oral QAM every morning 06/02/19 023 Inactive Banophen 50 mg capsule RxNorm: 5879082 Take 1 Capsule(s) Oral Q6H every 6 hours as needed 05/19/19 No Stop Date Active Novolog Flexpen U-100 Insulin aspart 100 unit/mL (3 mL) subcutaneous RxNorm: 8861189 Inject 10 Unit(s) Subcutaneous QHS every night at bedtime with nighttime snack 04/08/20 022 Inactive Novolog Flexpen U-100 Insulin aspart 100 unit/mL (3 mL) subcutaneous RxNorm: 6332291 Inject 42 Unit(s) Subcutaneous TID in addition to sliding scale 04/08/20 022 Inactive d/c 36u albuterol sulfate HFA 90 mcg/actuation aerosol inhaler RxNorm: 3283792 Take 2 Puff(s) Inhalation Q4H every four hours as needed as needed for SOB, cough, or wheezing 04/07/20 030 Active Banophen 50 mg capsule RxNorm: 8208516 Take 1 Capsule(s) Oral Q6H every 6 hours as needed 04/06/20 023 Inactive diphenhydramine 50 mg tablet RxNorm: 3632759 Take 1 Tablet(s) Oral Q6H every 6 hours as needed 04/06/20 022 Inactive diphenhydramine 50 mg tablet RxNorm: 1309156 1 Tablet(s) Oral Q6H every 6 hours as needed 04/06/20 022 Inactive Abilify 15 mg tablet RxNorm: 375546 /2 Tablet(s) Oral QD 03/10/2020/2 023 Inactive Shingrix (PF) 50 mcg/0.5 mL intramuscular suspension, kit RxNorm: 7429300 Administer 1/2 Milliliter(s) Intramuscular QD one time shingrix step 2 ( step 1 given 11/04/21) WITH needle - Nursing please administer upon arrival and once administered post a bridge message with date of administration, eyewear consultant, expiration date, and lot# so we can update [facility] 02/18/20 22 022 Inactive dispense with needle Shingrix (PF) 50 mcg/0.5 mL intramuscular suspension, kit RxNorm: 5380599 Administer 1/2 Milliliter(s) Intramuscular QD one time shingrix step 2 ( step 1 given 11/04/21) WITH needle - Nursing please administer upon arrival and once administered post a bridge message with date of administration, eyewear consultant, expiration date, and lot# so we can update [facility] 02/18/20 22 022 Inactive dispense with needle polyethylene glycol 3350 17 gram/dose oral powder RxNorm: 650028 Take 17=1 capful Gram(s) Oral QD mix with 4-8oz of liquid 01/08/20 22 023 Inactive take this in addition to BID prn order Lyrica 100 mg capsule RxNorm: 015878 Take 1 Capsule(s) Oral QAM every morning 01/08/20 22 022 Inactive d/c 50mg dose acetaminophen 500 mg tablet RxNorm: 146293 Take 1 Tablet(s) Oral TID 01/08/20 22 022 Inactive d/c PRN order Lyrica 150 mg capsule RxNorm: 425272 Take 1 Capsule(s) Oral QHS every night at bedtime 01/08/20 22 023 Inactive d/c 100mg dose Abilify 5 mg tablet RxNorm: 860747 Take 1 Tablet(s) Oral QD take 1 tab po QD #30 refill 5 dx: MDD 12/12/19 22 022 Inactive Abilify 5 mg tablet RxNorm: 160468 Take 1 Tablet(s) Oral QD take 1 tab po QD #30 refill 5 dx: MDD 12/12/19 22 022 Inactive Novolog Flexpen U-100 Insulin aspart 100 unit/mL (3 mL) subcutaneous RxNorm: 1331664 Inject 42 Unit(s) Subcutaneous TID in addition to sliding scale 12/10/19 22 Inactive d/c 36u chlorthalidone 25 mg tablet RxNorm: 020663 Take 1 Tablet(s) Oral QAM every morning 12/10/19 22 023 Inactive pregabalin 50 mg capsule RxNorm: 616588 Take 1 Capsule(s) Oral QAM every morning 11/12/19 22 022 Inactive tetanus-diphtheria toxoids-Td 2 Lf unit-2 Lf unit/0.5 mL IM suspension RxNorm: 139 Take 0.5 Miscellaneous Intramuscular 11/12/19 Inactive need tdap - nursing to administer upon arrival pregabalin 50 mg capsule RxNorm: 739506 Take 1 Capsule(s) Oral QAM every morning 10/16/19 022 Inactive pregabalin 50 mg capsule RxNorm: 076874 Take 1 Capsule(s) Oral QAM every morning 10/16/19 22 022 Inactive pregabalin 50 mg capsule RxNorm: 282003 1 Capsule(s) Oral QAM every morning 10/15/19 022 Inactive Shingrix (PF) 50 mcg/0.5 mL intramuscular suspension, kit RxNorm: 5262113 Administer 1/2 Milliliter(s) Intramuscular one time Nursing please administer upon arrival and once administered post a bridge message with date of administration, eyewear consultant, expiration date, and lot# so we can update [facility]. 10/09/19 22 022 Inactive shingrix step 1 Shingrix (PF) 50 mcg/0.5 mL intramuscular suspension, kit RxNorm: 5540219 Administer 1/2 Milliliter(s) Intramuscular one time Nursing please administer upon arrival and once administered post a bridge message with date of administration, eyewear consultant, expiration date, and lot# so we can update [facility]. 10/09/19 22 022 Inactive shingrix step 1 cholecalciferol (vitamin D3) 1,250 mcg (50,000 unit) capsule RxNorm: 687969 Take 1 Capsule(s) Oral QW once a [...] aspart 100 unit/mL (3 mL) subcutaneous RxNorm: 2998934 Inject 10 Unit(s) Subcutaneous QHS every night at bedtime with nighttime snack 10/08/19 22 Inactive Shingrix (PF) 50 mcg/0.5 mL intramuscular suspension, kit RxNorm: 5923943 ADMINISTER 2-DOSE SERIES PER CDC GUIDELINES 10/08/19 22 Active Shingrix (PF) 50 mcg/0.5 mL intramuscular suspension, kit RxNorm: 5799236 ADMINISTER 2-DOSE SERIES PER CDC GUIDELINES 10/08/19 22 Inactive Novolog Flexpen U-100 Insulin aspart 100 unit/mL (3 mL) subcutaneous RxNorm: 0112546 Inject 36 Unit(s) Subcutaneous TID in addition to sliding scale 10/08/19 22 Inactive Novofine Autocover 30 gauge x 1/3 needle RxNorm: Use 1 Miscellaneous UD as directed Use 1 needle as directed to administer insulin 5 times a day Dx:E11.42. 10/03/19 22 Inactive ok to substitute with any covered alternative pen needle benzoyl peroxide 10 % topical cleanser RxNorm: 234479 Apply 1 Application Topical QD apply to face, wash rinse and dry once daily (may change to QOD if drying) 08/19/19 22 Inactive (%covered by insurance) #60ml refill 11 dx: acne benzoyl peroxide 10 % topical cleanser RxNorm: 613039 Apply 1 Application Topical QD apply to face, wash rinse and dry once daily (may change to QOD if drying) 08/19/19 22 022 Inactive (%covered by insurance) #60ml refill 11 dx: acne benzoyl peroxide 10 % topical cleanser RxNorm: 677860 Apply 1 Application Topical QD apply to face, wash rinse and dry once daily (may change to QOD if drying) 08/19/19 22 022 Inactive (%covered by insurance) #60ml refill 11 dx: acne Lyrica 50 mg capsule RxNorm: 375140 Take 1 Capsule(s) Oral QAM every morning Take 1 capsule by mouth once daily 08/19/19 22 022 Inactive benzoyl peroxide 10 % topical cleanser RxNorm: 018156 Apply 1 Application Topical QD apply to face, wash rinse and dry once daily (may change to QOD if drying) 08/19/19 22 022 Inactive (%covered by insurance) #60ml refill 11 dx: acne Lyrica 100 mg capsule RxNorm: 555582 Take 1 Capsule(s) Oral QHS every night at bedtime Take 1 capsule by mouth once daily at bedtime 08/19/19 22 022 Inactive Lyrica 100 mg capsule RxNorm: 805325 Take 1 Capsule(s) Oral QHS every night at bedtime Take 1 capsule by mouth once daily at bedtime 08/16/19 22 Inactive Lyrica 50 mg capsule RxNorm: 835159 Take 1 Capsule(s) Oral QAM every morning Take 1 capsule by mouth once daily 08/16/19 Inactive Levemir FlexTouch U-100 Insulin 100 unit/mL (3 mL) subcutaneous pen RxNorm: 014477 Inject 86 Unit(s) Subcutaneous BID 08/05/19 22 022 Inactive d/c 83units BID Lyrica 100 mg capsule RxNorm: 349904 Take 1 Capsule(s) Oral QHS every night at bedtime Take 1 capsule by mouth once daily at bedtime 07/14/19 22 022 Inactive Lyrica 50 mg capsule RxNorm: 937921 Take 1 Capsule(s) Oral QAM every morning Take 1 capsule by mouth once daily 07/14/19 Inactive Levemir FlexTouch U-100 Insulin 100 unit/mL (3 mL) subcutaneous pen RxNorm: 480631 Inject 83 Unit(s) Subcutaneous BID 07/08/19 Inactive [...] 30 mg tablet,extended release 24 hr RxNorm: 810809 Take 1 Tablet(s) Oral QD 05/05/20 21 No Stop Date Active hydralazine 50 mg tablet RxNorm: 888100 Take 1 Tablet(s) Oral QID 05/05/20 Inactive venlafaxine ER 225 mg tablet,extended release 24 hr RxNorm: 114858 Take 1 Tablet(s) Oral QD 05/05/20 21 Inactive venlafaxine ER 225 mg tablet,extended release 24 hr RxNorm: 645259 Take 1 Tablet(s) Oral QD 05/05/20 022 Inactive hydralazine 50 mg tablet RxNorm: 328328 Take 1 Tablet(s) Oral QID 05/05/20 021 Inactive aspirin 81 mg tablet,delayed release RxNorm: 233814 Take 1 Tablet(s) Oral QD 03/31/20 Inactive Zetia 10 mg tablet RxNorm: 984721 Take 1 Tablet(s) Oral QD 03/31/20 Inactive Vitamin D2 1,250 mcg (50,000 unit) capsule RxNorm: 8120647 Take 1 Capsule(s) Oral QW once a week x 12 weeks 03/31/20 Inactive Vitamin D2 1,250 mcg (50,000 unit) capsule RxNorm: 7540455 Take 1 Capsule(s) Oral QW once a week 03/31/20 Inactive Zetia 10 mg tablet RxNorm: 097665 Take 1 Tablet(s) Oral QD 03/31/20 Inactive hydralazine 25 mg tablet RxNorm: 319759 Take 1 Tablet(s) Oral QID 03/31/20 21 021 Inactive hydralazine 25 mg tablet RxNorm: 599559 Take 1 Tablet(s) Oral QID 03/31/20 021 Inactive hydralazine 10 mg tablet RxNorm: 039872 Take 1 Tablet(s) Oral QID 03/03/20 Inactive cephalexin 500 mg tablet RxNorm: 510163 Take 1 Tablet(s) Oral QID 02/27/20 021 Inactive cephalexin 500 mg tablet RxNorm: 420722 Take 1 Tablet(s) Oral QID 02/27/20 021 Inactive lisinopril 40 mg tablet RxNorm: 005716 Take 1 Tablet(s) Oral QD 02/11/20 023 Inactive Eliquis 5 mg tablet RxNorm: 1778557 Take 1 Tablet(s) Oral BID 01/05/20 21 022 Inactive Eliquis 5 mg tablet RxNorm: 0389923 Take 2 Tablet(s) Oral QD 01/01/20 21 021 Inactive Lyrica 50 mg capsule RxNorm: 773818 Take 1 Capsule(s) Oral QAM every morning 12/24/19 21 021 Inactive Lyrica 100 mg capsule RxNorm: 216563 Take 1 Capsule(s) Oral QHS every night at bedtime 12/24/19 021 Inactive clotrimazole 1 % topical cream RxNorm: 008533 Apply to right foot and toes Topical BID 12/04/19 21 023 Inactive metoprolol succinate ER 200 mg tablet,extended release 24 hr RxNorm: 971027 Take 1 Tablet(s) Oral QD 12/04/19 023 Inactive ciprofloxacin 500 mg tablet RxNorm: 847238 Take 1 Tablet(s) Oral QD 11/30/19 021 Inactive DX ofloxacin otic drops Accu-Chek Guide test strips RxNorm: USE 1 TO CHECK GLUCOSE 4 TIMES DAILY AND NEEDED 11/15/19 023 Inactive Blood Glucose Test strips RxNorm: Use 1 Test Strip QID at PRN 11/05/19 21 023 Inactive E11.42 lisinopril 30 mg tablet RxNorm: 642946 Take 1 Tablet(s) Oral QD 10/30/19 021 Inactive lisinopril 20 mg tablet RxNorm: 937030 Take 1 Tablet(s) Oral QD 10/23/19 021 Inactive lisinopril 20 mg tablet RxNorm: 622504 Take 1 Tablet(s) Oral QD 10/23/19 21 021 Inactive lisinopril 10 mg tablet RxNorm: 056061 Take 1 Tablet(s) Oral QD 10/02/19 21 021 Inactive icosapent ethyl 1 gram capsule RxNorm: 0881354 Take 2 Capsule(s) (2 gm) Oral BID with meals 09/12/19 Inactive Okay to dispense one 2gm tab if you have that available. icosapent ethyl 1 gram capsule RxNorm: 6862239 Take 2 Capsule(s) Oral BID 09/12/19 21 021 Inactive Okay to dispense one 2gm tab if you have that available. amlodipine 10 mg tablet RxNorm: 025266 Take 1 Tablet(s) Oral QD 09/04/19 022 Inactive aspirin 81 mg tablet,delayed release RxNorm: 017989 Take 1 Tablet(s) Oral QD 09/04/19 Inactive Levemir FlexTouch U-100 Insulin 100 unit/mL (3 mL) subcutaneous pen RxNorm: 999284 Inject 150 Unit(s) Subcutaneous BID 09/04/19 022 Inactive venlafaxine ER 150 mg tablet,extended release 24 hr RxNorm: 619288 Take 1 Tablet(s) Oral QD 09/04/19 021 Inactive clotrimazole-betame thasone 1 %-0.05 % topical cream RxNorm: 879826 Apply to rash on red area on left abdomen/chest Topical BID 08/10/19 Inactive amlodipine 5 mg tablet RxNorm: 393056 Take 1 Tablet(s) Oral QD 07/31/19 Inactive cephalexin 500 mg tablet RxNorm: 332105 Take 1 Tablet(s) Oral BID BID - Twice Daily 07/31/19 021 Inactive Start 08/01/20 pantoprazole 40 mg tablet,delayed release RxNorm: 010062 Take 1 Tablet(s) Oral QAM every morning 07/08/19 022 Inactive senna 8.6 mg tablet RxNorm: 171959 Take 1 Tablet(s) Oral QD 07/08/19 022 Inactive carbamazepine 200 mg tablet RxNorm: 550599 Take 1 Tablet(s) Oral BID 07/08/19 022 Inactive clopidogrel 75 mg tablet RxNorm: 692460 Take 1 Tablet(s) Oral QD 07/08/19 21 021 Inactive Blood Glucose Test strips RxNorm: Use 1 Test Strip QID at PRN 07/08/19 21 Inactive E11.42 Novolog Flexpen U-100 Insulin aspart 100 unit/mL (3 mL) subcutaneous RxNorm: 0097565 Administer per sliding scale Milliliter(s) Subcutaneous TID 151-200: 10 u; 201-250: 20 u; 251-300: 30 u; 301-350: 40 u; 351-400: 50 u. 07/08/19 21 022 Inactive lisinopril 5 mg tablet RxNorm: 217383 Take 1 Tablet(s) Oral QD 07/08/19 021 Inactive Novolog Flexpen U-100 Insulin aspart 100 unit/mL (3 mL) subcutaneous RxNorm: 4073219 Inject 85 Unit(s) Subcutaneous TID 07/08/19 022 Inactive pravastatin 80 mg tablet RxNorm: 412246 Take 1 Tablet(s) Oral QHS every night at bedtime 07/08/19 023 Inactive clotrimazole 1 % topical cream RxNorm: 552183 Apply to bilateral groin areas Topical BID 07/08/19 022 Inactive metoprolol succinate ER 200 mg tablet,extended release 24 hr RxNorm: 682312 Take 1 Tablet(s) Oral QD 07/08/19 021 Inactive Vitamin D3 25 mcg (1,000 unit) tablet RxNorm: 102147 Take 1 Tablet(s) Oral QD 07/08/19 021 Inactive isosorbide dinitrate 30 mg tablet RxNorm: 516399 Take 1 Tablet(s) Oral QD 07/08/19 21 021 Inactive Levemir FlexTouch U-100 Insulin 100 unit/mL (3 mL) subcutaneous pen RxNorm: 963876 Inject 140 Unit(s) Subcutaneous BID 07/08/19 21 021 Inactive torsemide 20 mg tablet RxNorm: 001585 Take 1 Tablet(s) Oral QD 07/08/19 21 023 Inactive venlafaxine 75 mg tablet RxNorm: 606205 Take 1 Tablet(s) Oral QD 07/08/19 21 021 Inactive acetaminophen 500 mg tablet RxNorm: 324535 Take 1 Tablet(s) Oral TID as needed for headache 06/18/19 21 021 Inactive acetaminophen 500 mg tablet RxNorm: 338764 Take 1 Tablet(s) Oral TID as needed for headache 06/18/19 21 021 Inactive Lyrica 100 mg capsule RxNorm: 074443 Take 1 Capsule(s) Oral QHS every night at bedtime 06/11/19 21 021 Inactive Lyrica 50 mg capsule RxNorm: 142318 Take 1 Capsule(s) Oral QAM every morning 06/10/19 21 021 Inactive hydrocortisone 2.5 % topical cream RxNorm: 231675 Apply to bilateral groin creases Topical BID 05/15/20 20 021 Inactive clotrimazole 1 % topical cream RxNorm: 406540 Apply to bilateral groin areas Topical BID 05/15/20 20 021 Inactive Lyrica 50 mg capsule RxNorm: 438152 Take 1 Capsule(s) Oral QAM every morning 05/14/20 20 020 Inactive Lyrica 100 mg capsule RxNorm: 486494 Take 1 Capsule(s) Oral QHS every night [...] Inactive Nystop 100,000 unit/gram topical powder RxNorm: 583655 Apply to abd folds, under breasts and L side of groin Topical BID x 14 days, then BID PRN 04/08/20 20 Inactive dx: yeast dermatitis Lyrica 100 mg capsule RxNorm: 047412 Take 1 Capsule(s) Oral QHS every night at bedtime 03/13/20 20 Inactive Lyrica 50 mg capsule RxNorm: 336768 Take 1 Capsule(s) Oral QAM every morning 03/13/20 20 Inactive ketoconazole 2 % shampoo RxNorm: 580819 Apply Topical two times a week with showers 03/11/20 20 Inactive cholecalciferol (vitamin D3) 50 mcg (2,000 unit) tablet RxNorm: 501110 Take 1 Tablet(s) Oral QD 03/11/20 20 Inactive Zetia 10 mg tablet RxNorm: 867336 Take 1 Tablet(s) Oral QD 03/07/20 20 Inactive Zetia 10 mg tablet RxNorm: 360360 Take 1 Tablet(s) Oral QD 03/07/20 20 Inactive Lyrica 50 mg capsule RxNorm: 912524 Take 1 Capsule(s) Oral QAM every morning 02/15/20 20 Inactive Lyrica 100 mg capsule RxNorm: 175505 Take 1 Capsule(s) Oral QHS every night at bedtime 02/15/20 20 Inactive Lyrica 100 mg capsule RxNorm: 233620 Take 1 Capsule(s) Oral QHS every night at bedtime 02/15/20 20 Inactive Lyrica 50 mg capsule RxNorm: 137346 Take 1 Capsule(s) Oral QAM every morning 02/15/20 20 Inactive polyethylene glycol 3350 17 gram/dose oral powder RxNorm: [id number] Take 17=1 capful Gram(s) Oral BID as needed mix with 4-8oz of liquid 06/12/2021 Activemetoprolol succinate ER 200 mg tablet,extended release 24 hrRxNorm: 341945 Take 1 Tablet(s) Oral QD08/11/2022ctiveloperamide 2 mg capsuleRxNorm: 612783 Take 1 Capsule(s) Oral QID as arwsoy9906/12/2021ctivehydralazine 50 mg tablet RxNorm: 244331Ytmw 1 Tablet(s) Oral QID08/11/2022ctivevenlafaxine ER 75 mg capsule,extended release 24 hrRxNorm: 320466Gtvu 3 Capsule(s) Oral QD06/12/2021 02/01/2023Inactiveicosapent ethyl 1 gram capsuleRxNorm: 6678438Zkmt 2 Capsule(s) (2 gm) Oral BID with meals/InactiveOkay to dispense one 2gm tab if you have that available.Levemir FlexTouch U-100 Insulin 100 unit/mL (3 mL) subcutaneous penRxNorm: 871786Cyhyee 80 Unit(s) Subcutaneous BID07/14/2022 07/12/2022InactiveNovolog Flexpen U-100 Insulin aspart 100 unit/mL (3 mL) subcutaneousRxNorm: 1370206Njjdcd 30 Unit(s) Subcutaneous TID with meals Inactive Medication Administered No Medication Administered data Reason For Visit No Reason For Visit data Plan of Care Planned Activity Notes Codes Status Date Referral: [facility] WPtel: [address], [address] [id number] USReferralRecords Eiqzadoi23/08/2023Referral: [facility] WPtel: [address] [id number] DMHiuvzmtlPaecmsgsb29/12/2022eferral: General CardiologyReferralCompleted 1Referral: General PsychologistReferralClosedReferral: General PsychiatristReferralNeed [...] Sister Jyotsna involved in his care cell# [phone] Guardian: Don (tapan met in person 09/01/21), now has Lexii (same group as don)Lab Schedule: * 02/08/2023
--- OUTSIDE RECORDS SUMMARY | 2023-04-13 18:00 | XMS_ITS | CCD ---
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 Phone [facility] [employer] Primary Care Provider Leona vailable [place] [employer] Chronic Care Management U navailable Summary Purpose DataExchange Insurance Providers Payer name Policy type / Coverage type Covered constitution party ID Effective Begin Date Effective End Date [place] Part B [id number] Unknown Unknown Medicaid [place] Medicare Part B [id number] Unknown Unknown Family history Sister Brittany Suggs [...] Jail 09/03/[address]: 9039070 Non-Smoker / No History of Smoking 09/02/[address]: 471073095 No Alcohol Consum ption 09/02/2020 Allergies, Adverse Reactions, Alerts Substance Reaction Codes Entered Date Inactivated Date Status LISINOPRIL RxNorm: 6734479No Inactive DateActiveMetformin CThAnyheyz52/28/2020No Inactive DateActive Problems Condition Codes Effective Dates Condition St atus Coronary artery disease invo lving [place] coronary artery of [place] heart, angina presence unspecified ICD-10: I25.10 ICD-9: 414.0111/ctiveOnychogryposisICD-10: L60.2 ICD-9: 703.811ctiveReducible umbilical herniaICD-10: K42.9 ICD-9: 553.111/ctiveType 2 diabetes mellitus with diabetic polyneuropathy, with long-term current use of insulinICD-10: E11.42 ICD-9: 250.6011/29/2023ActiveBMI 60.0-69.9, adultICD-10: Z68.44 ICD-9: V85.4410/ctiveCandidal intertrigoICD-10: B37.2 ICD-9: 112.310/ctiveHyperlipidemia associated with type 2 diabetes mellitusICD-10: E11.69 ICD-9: 250.8010/ctiveHyperlipidemia, unspecifiedICD-10: E78.5 ICD-9: 272.410/ctiveStage 2 chronic 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ICD-10: E11.22 ICD-9: 250.4010/ctiveInappropriate sexual behaviorICD-10: Z72.89 ICD-9: 312.8910/ctiveLearning disabilityICD-10: F81.9 ICD-9: 315.210/ctiveMajor depression, recurrentICD-10: F33.9 ICD-9: 296.3010/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 ICD-9: V58.6910/ctiveRecurrent major depressive disorder, in partial remissionICD-10: F33.41 ICD-9: 296.3510/ctiveAnnual physical examICD-10: Z00.00 ICD-9: V70.009/ctiveEncounter for other specified special examinations ICD-10: Z01.89 ICD-9: V72.8509/ctiveEncounter for screening for nutritional disorder ICD-10: Z13.21 ICD-9: V77.9909/ctiveHypertensive heart disease without heart failure ICD-10: I11.9 ICD-9: 402.9007/ctiveHypokalemiaICD-10: E87.6 ICD-9: 276.807/ctiveTinea pedis of both feetICD-10: B35.3 ICD-9: 110.407/ctiveParaparesis of both lower limbsICD-10: G82.20 ICD-9: 344.106/ctiveConstipation by delayed colonic transitICD-10: K59.01 ICD-9: 564.0105/ctiveLower extremity edemaICD-10: R60.0 ICD-9: 782.305/ctivePain of right heelICD-10: M79.671 ICD-9: 729.505/ctiveAmputated toe of right footICD-10: S98.131A ICD-9: 895.003/ctivePre-op evaluationICD-10: Z01.818 ICD-9: V72.8403/ctiveSecondary hypertensionICD-10: I15.9 ICD-9: 405.9903/ctiveVitamin D deficiencyICD-10: E55.9 ICD-9: 268.912/ctiveShortness of breathICD-10: R06.02 ICD-9: 786.0511/ctiveSeizure disorderICD-10: G40.909 ICD-9: 345.9011/ctiveCellulitisICD-10: L03.90 ICD-9: 682.910/ctiveHx of deep venous thrombosisICD-10: Z86.718 ICD-9: V12.5109/ctiveHypercoagulable stateICD-10: D68.59 ICD-9: 289.8109/ctivePVD (peripheral vascular disease)ICD-10: I73.9 ICD-9: 443.909/2ActiveDepressionICD-10: F32.9 ICD-9: 43643/esolvedDVT (deep venous thrombosis)ICD-10: I82.409 ICD-9: 453.4009/2ResolvedEncounter for immunizationICD-10: Z23 ICD-9: V03.8909/esolvedLong term (current) use of insulinICD-10: Z79.4 02/10/2022esolvedMuscular painICD-10: M79.10 ICD-9: 729.109/2ResolvedDandruff in adultICD-10: L21.0 ICD-9: 690.1808ctiveHypertension associated with diabetesICD-10: E11.59 ICD-9: 250.8008esolvedHistory of anemia due to CKDICD-10: N18.9 ICD-9: 585.907/2ActiveStage 2 chronic kidney diseaseICD-10: N18.2 ICD-9: 585.207/ctiveGout due to renal impairmentICD-10: M10.30 ICD-9: 274.1006ctiveSkin tagICD-10: L91.8 ICD-9: 701.911/ctiveCallus of heelICD-10: L84 ICD-9: 970411ActiveImpacted cerumen, left earICD-10: H61.22 ICD-9: 380.408/ctiveContact with [...] Z20.828 ICD-9: V01.7902esolvedHyperhidrosis of palmsICD-10: L74.512 ICD-9: 705.5791McbnbgBezefbivUoxdnqd84/28/2020ActiveDiabetes mellitus Type 7Lzlgxhr13/28/2020ActiveAnemia in chronic kidney diseaseICD-10: D63.1 02/12/2020ResolvedHyperlipidemia, unspecifiedICD-10: E78.Resolved Medications Medication Codes Instructions Start Date Stop Date Status Fill Instructions rosuvastatin 40 mg tablet RxNorm: 067997 Take 1 Tablet(s) Oral QPM every evening 04/16/20 024 Inactive D/C rosuvastatin 20mg venlafaxine ER 75 mg capsule,extended release 24 hr RxNorm: 933364 Take 3 Capsule(s) Oral QD 04/14/20 023 Inactive pregabalin 100 mg capsule RxNorm: 422230 Take 1 Capsule(s) Oral QAM every morning 04/14/20 023 Inactive Accu-Chek Guide test strips RxNorm: Use 1 Test Strip QID 03/26/20 23 024 Active ok to substitute with any covered alternative test strip Accu-Chek Guide Glucose Meter RxNorm: Use 1 Miscellaneous UD as directed Use glucose meter to monitor blood glucose 4 times daily and as needed. Dx:E11.42 03/26/20 23 023 Inactive ok to substitute with any covered alternative meter clotrimazole 1 % topical cream RxNorm: 542138 Take apply topically to abdominal folds twice daily for 14 days 03/12/20 024 Inactive Ozempic 1 mg/dose (4 mg/3 mL) subcutaneous pen injector RxNorm: 6305539 Inject 1 Milligram(s) Subcutaneous QW once a week 03/11/20 23 023 Inactive rosuvastatin 20 mg tablet RxNorm: 024410 Take 1 Tablet(s) Oral QD 02/26/20 23 023 Inactive d/c pravastatin 80mg Ozempic 1 mg/dose (4 mg/3 mL) subcutaneous pen injector RxNorm: 7214428 Inject 1 Milligram(s) Subcutaneous QW once a week 02/20/20 23 023 Inactive pregabalin 150 mg capsule RxNorm: 286393 Take 1 Capsule(s) Oral HS at bed time 02/19/20 23 023 Inactive pregabalin 100 mg capsule RxNorm: 211560 Take 1 Capsule(s) Oral QAM every morning 02/18/20 23 023 Inactive FreeStyle Chema 2 Sensor kit RxNorm: use as directed 02/04/20 23 024 Inactive venlafaxine ER 75 mg capsule,extended release 24 hr RxNorm: 344794 Take 3 Capsule(s) Oral QD 02/04/20 23 023 Inactive FreeStyle Chema 2 Sensor kit RxNorm: use as directed 02/04/20 023 Inactive fluconazole 150 mg tablet RxNorm: 825628 Take 1 Tablet(s) Oral on day 3 and on day 6 02/03/20 23 024 Active chlorthalidone 25 mg tablet RxNorm: 652776 Take 1 Tablet(s) Oral QAM every morning 02/03/20 23 No Stop Date Active venlafaxine ER 150 mg capsule,extended release 24 hr RxNorm: 963550 Take 1 Capsule(s) Oral QD 02/03/20 23 023 Inactive acetaminophen 500 mg tablet RxNorm: 539741 1 TABLET ORALLY 3 TIMES DAILY (MAX APAP:4GM/24HR) 12/15/19 23 023 Inactive potassium chloride ER 20 mEq tablet,extended release RxNorm: 901627 Take 1 Tablet(s) Oral BID 12/09/19 23 024 Inactive d/c 20mEq once daily (sent from hospital) clotrimazole 1 % topical cream RxNorm: 340969 apply 1g topically to top of feet and in between toes BID 12/09/19 23 023 Inactive nystatin 100,000 unit/gram topical powder RxNorm: 509106 APPLY TO AFFECTED AREAS TOPICALLY 2 TIMES DAILY 11/21/19 23 024 Inactive Nystop 100,000 unit/gram topical powder RxNorm: 788633 Apply to abd folds, under breasts and L side of groin Topical BID x 14 days, then BID PRN 11/20/19 23 023 Inactive dx: yeast dermatitis Bengay Ultra Strength 4 %-30 %-10 % topical cream RxNorm: 444397 Apply 1 Gram(s) Topical QID PRN to feet and legs for neuropathic pain 11/11/19 024 Active hydrocortisone 2.5 % topical cream RxNorm: 621309 Apply 1/2 Gram(s) Topical BID as needed 11/10/19 024 Inactive clotrimazole 1 % topical cream RxNorm: 630426 Apply 1/2 Gram(s) Topical BID Apply to affected areas of groin, periarea, and abdominal topically 2 times daily 11/10/19 023 Inactive Levemir FlexPen 100 unit/mL (3 mL) solution subcutaneous insulin pen RxNorm: 583311 Inject 30 Unit(s) Subcutaneous BID 10/07/19 023 Inactive Humulin R U-500 (Concentrated) Insulin 500 unit/mL subcutaneous soln RxNorm: 625793 Inject 100 Unit(s) Subcutaneous TID 10/07/19 024 Inactive Ozempic 0.25 mg or 0.5 mg (2 mg/3 mL) subcutaneous pen injector RxNorm: 8191697 Inject 1/2 Milligram(s) Subcutaneous QW once a week 10/07/19 024 Inactive aripiprazole 15 mg tablet RxNorm: 069108 1/2 TAB (7.5MG) ORALLY DAILY (DX:MAJOR DEPRESSIVE DISORDER) 09/23/19 023 Inactive Lancets,Thin 28 gauge RxNorm: Use 1 as directed QID 09/15/19 23 024 Inactive Accu-Chek Guide test strips RxNorm: Use 1 Test Strip QID 09/15/19 23 023 Inactive ok to substitute with any covered alternative test strip torsemide 20 mg tablet RxNorm: 858126 Take 1 Tablet(s) Oral BID 09/09/19 024 Inactive d/c once daily dosing carvedilol 25 mg tablet RxNorm: 715428 Take 1 Tablet(s) Oral QD 08/25/19 23 024 Inactive pregabalin 150 mg capsule RxNorm: 693256 1 Capsule(s) Oral HS at bed time 08/18/19 023 Inactive pregabalin 100 mg capsule RxNorm: 224189 1 Capsule(s) Oral QAM every morning 08/18/19 23 023 Inactive carvedilol 25 mg tablet RxNorm: 550556 1 Tablet(s) Oral QD 07/28/19 23 023 Inactive lisinopril 20 mg tablet RxNorm: 943840 Give 1 Tablet(s) Oral QD 07/28/19 23 023 Inactive Lyrica 150 mg capsule RxNorm: 578333 Take 1 Capsule(s) Oral QHS every night at bedtime 07/19/19 023 Inactive d/c 100mg dose Diflucan 150 mg tablet RxNorm: 561717 Take 1 Tablet(s) Oral QD repeat on day 3 and 6 07/19/19 23 023 Inactive pregabalin 100 mg capsule RxNorm: 341532 Take 1 Capsule(s) Oral QAM every morning 07/19/19 023 Inactive gatifloxacin 0.5 % eye drops RxNorm: 412680 Instill 1 Drop(s) as directed TID Instill 1 drop in to affected eye(s) starting 1 day prior to surgery and continue until gone (do not exceed 4 weeks). 07/13/19 23 023 Inactive carvedilol 25 mg tablet RxNorm: 502276 2 Tablet(s) Oral BID 07/13/19 023 Inactive Humulin R Regular U-100 Insulin 100 unit/mL injection solution RxNorm: 425161 85 Unit(s) Injection TID 07/13/19 23 023 Inactive ketorolac 0.5 % eye drops RxNorm: 677687 Instill 1 Drop(s) as directed QID Instill 1 drop into affected eye(s) 4 times daily starting 1 day prior to surgery and continue until gone (do not exceed 4 weeks). 07/13/19 23 023 Inactive Diflucan 150 mg tablet RxNorm: 395536 Take 1 Tablet(s) Oral QD repeat on day 3 and 6 06/30/19 23 023 Inactive Accu-Chek Guide test strips RxNorm: Use 1 Test Strip QID Use 1 test strip to monitor blood glucose 4 times daily and as needed. Dx:E11.42. 06/23/19 23 023 Inactive ok to substitute with any covered alternative test strip dextromethorphan-gu aifenesin 10 mg-100 mg/5 mL oral liquid RxNorm: 330743 Take 10 Milliliter(s) Oral every 4 hours as needed for cough 06/19/19 23 023 Inactive dextromethorphan-gu aifenesin 10 mg-100 mg/5 mL oral liquid RxNorm: 176120 Take 10 Milliliter(s) Oral every 4 hours as needed for cough 06/19/19 23 023 Inactive Lyrica 150 mg capsule RxNorm: 508107 Take 1 Capsule(s) Oral QHS every night at bedtime 06/18/19 023 Inactive d/c 100mg dose aripiprazole 15 mg tablet RxNorm: 473826 1/2 TAB (7.5MG) ORALLY DAILY (DX:MAJOR DEPRESSIVE DISORDER) 06/05/19 23 023 Inactive pregabalin 100 mg capsule RxNorm: 195052 1 Capsule(s) Oral QAM every morning 06/02/19 23 023 Inactive Banophen 50 mg capsule RxNorm: 0473862 Take 1 Capsule(s) Oral Q6H every 6 hours as needed 05/19/19 23 No Stop Date Active Novolog Flexpen U-100 Insulin aspart 100 unit/mL (3 mL) subcutaneous RxNorm: 3633701 Inject 10 Unit(s) Subcutaneous QHS every night at bedtime with nighttime snack 04/08/20 22 022 Inactive Novolog Flexpen U-100 Insulin aspart 100 unit/mL (3 mL) subcutaneous RxNorm: 3455669 Inject 42 Unit(s) Subcutaneous TID in addition to sliding scale 04/08/20 22 022 Inactive d/c 36u albuterol sulfate HFA 90 mcg/actuation aerosol inhaler RxNorm: 1542751 Take 2 Puff(s) Inhalation Q4H every four hours as needed as needed for SOB, cough, or wheezing 04/07/20 22 030 Active Banophen 50 mg capsule RxNorm: 0223740 Take 1 Capsule(s) Oral Q6H every 6 hours as needed 04/06/20 023 Inactive diphenhydramine 50 mg tablet RxNorm: 7558288 Take 1 Tablet(s) Oral Q6H every 6 hours as needed 04/06/20 22 022 Inactive diphenhydramine 50 mg tablet RxNorm: 1843289 1 Tablet(s) Oral Q6H every 6 hours as needed 04/06/20 22 022 Inactive Abilify 15 mg tablet RxNorm: 474116 1/2 Tablet(s) Oral QD 03/10/20 023 Inactive Shingrix (PF) 50 mcg/0.5 mL intramuscular suspension, kit RxNorm: 5270640 Administer 1/2 Milliliter(s) Intramuscular QD one time shingrix step 2 ( step 1 given 11/04/21) WITH needle - Nursing please administer upon arrival and once administered post a bridge message with date of administration, clerical assistant, expiration date, and lot# so we can update [facility] 02/18/20 22 022 Inactive dispense with needle Shingrix (PF) 50 mcg/0.5 mL intramuscular suspension, kit RxNorm: 6499841 Administer 1/2 Milliliter(s) Intramuscular QD one time shingrix step 2 ( step 1 given 11/04/21) WITH needle - Nursing please administer upon arrival and once administered post a bridge message with date of administration, clerical assistant, expiration date, and lot# so we can update [facility] 02/18/20 22 022 Inactive dispense with needle polyethylene glycol 3350 17 gram/dose oral powder RxNorm: 272842 Take 17=1 capful Gram(s) Oral QD mix with 4-8oz of liquid 01/08/20 22 023 Inactive take this in addition to BID prn order Lyrica 100 mg capsule RxNorm: 118881 Take 1 Capsule(s) Oral QAM every morning 01/08/20 22 022 Inactive d/c 50mg dose acetaminophen 500 mg tablet RxNorm: 897824 Take 1 Tablet(s) Oral TID 01/08/20 22 022 Inactive d/c PRN order Lyrica 150 mg capsule RxNorm: 329867 Take 1 Capsule(s) Oral QHS every night at bedtime 01/08/20 22 023 Inactive d/c 100mg dose Abilify 5 mg tablet RxNorm: 422383 Take 1 Tablet(s) Oral QD take 1 tab po QD #30 refill 5 dx: MDD 12/12/19 22 022 Inactive Abilify 5 mg tablet RxNorm: 352916 Take 1 Tablet(s) Oral QD take 1 tab po QD #30 refill 5 dx: MDD 12/12/19 22 022 Inactive Novolog Flexpen U-100 Insulin aspart 100 unit/mL (3 mL) subcutaneous RxNorm: 8056258 Inject 42 Unit(s) Subcutaneous TID in addition to sliding scale 12/10/19 22 022 Inactive d/c 36u chlorthalidone 25 mg tablet RxNorm: 125052 Take 1 Tablet(s) Oral QAM every morning 12/10/19 22 023 Inactive pregabalin 50 mg capsule RxNorm: 797928 Take 1 Capsule(s) Oral QAM every morning 11/12/19 22 022 Inactive tetanus-diphtheria toxoids-Td 2 Lf unit-2 Lf unit/0.5 mL IM suspension RxNorm: 139 Take 0.5 Miscellaneous Intramuscular 11/12/19 22 022 Inactive need tdap - nursing to administer upon arrival pregabalin 50 mg capsule RxNorm: 735176 Take 1 Capsule(s) Oral QAM every morning 10/16/19 22 022 Inactive pregabalin 50 mg capsule RxNorm: 876171 Take 1 Capsule(s) Oral QAM every morning 10/16/19 22 022 Inactive pregabalin 50 mg capsule RxNorm: 602058 1 Capsule(s) Oral QAM every morning 10/15/19 22 022 Inactive Shingrix (PF) 50 mcg/0.5 mL intramuscular suspension, kit RxNorm: 8538812 Administer 1/2 Milliliter(s) Intramuscular one time Nursing please administer upon arrival and once administered post a bridge message with date of administration, clerical assistant, expiration date, and lot# so we can update [facility]. 10/09/19 22 Inactive shingrix step 1 Shingrix (PF) 50 mcg/0.5 mL intramuscular suspension, kit RxNorm: 3134791 Administer 1/2 Milliliter(s) Intramuscular one time Nursing please administer upon arrival and once administered post a bridge message with date of administration, clerical assistant, expiration date, and lot# so we can update [facility]. 10/09/19 22 022 Inactive shingrix step 1 cholecalciferol (vitamin D3) 1,250 mcg (50,000 unit) capsule RxNorm: 180127 Take 1 Capsule(s) Oral QW once a [...] aspart 100 unit/mL (3 mL) subcutaneous RxNorm: 8287617 Inject 10 Unit(s) Subcutaneous QHS every night at bedtime with nighttime snack 10/08/19 22 Inactive Shingrix (PF) 50 mcg/0.5 mL intramuscular suspension, kit RxNorm: 4668544 ADMINISTER 2-DOSE SERIES PER CDC GUIDELINES 10/08/19 22 022 Active Shingrix (PF) 50 mcg/0.5 mL intramuscular suspension, kit RxNorm: 2591336 ADMINISTER 2-DOSE SERIES PER CDC GUIDELINES 10/08/19 22 022 Inactive Novolog Flexpen U-100 Insulin aspart 100 unit/mL (3 mL) subcutaneous RxNorm: 9394879 Inject 36 Unit(s) Subcutaneous TID in addition to sliding scale 10/08/19 22 Inactive Novofine Autocover 30 gauge x 1/3 needle RxNorm: Use 1 Miscellaneous UD as directed Use 1 needle as directed to administer insulin 5 times a day Dx:E11.42. 10/03/19 22 Inactive ok to substitute with any covered alternative pen needle benzoyl peroxide 10 % topical cleanser RxNorm: 488185 Apply 1 Application Topical QD apply to face, wash rinse and dry once daily (may change to QOD if drying) 08/19/19 22 022 Inactive (%covered by insurance) #60ml refill 11 dx: acne benzoyl peroxide 10 % topical cleanser RxNorm: 628174 Apply 1 Application Topical QD apply to face, wash rinse and dry once daily (may change to QOD if drying) 08/19/19 22 022 Inactive (%covered by insurance) #60ml refill 11 dx: acne benzoyl peroxide 10 % topical cleanser RxNorm: 322746 Apply 1 Application Topical QD apply to face, wash rinse and dry once daily (may change to QOD if drying) 08/19/19 022 Inactive (%covered by insurance) #60ml refill 11 dx: acne Lyrica 50 mg capsule RxNorm: 226002 Take 1 Capsule(s) Oral QAM every morning Take 1 capsule by mouth once daily 08/19/19 022 Inactive benzoyl peroxide 10 % topical cleanser RxNorm: 496918 Apply 1 Application Topical QD apply to face, wash rinse and dry once daily (may change to QOD if drying) 08/19/19 22 022 Inactive (%covered by insurance) #60ml refill 11 dx: acne Lyrica 100 mg capsule RxNorm: 252227 Take 1 Capsule(s) Oral QHS every night at bedtime Take 1 capsule by mouth once daily at bedtime 08/19/19 22 022 Inactive Lyrica 100 mg capsule RxNorm: 156516 Take 1 Capsule(s) Oral QHS every night at bedtime Take 1 capsule by mouth once daily at bedtime 08/16/19 22 Inactive Lyrica 50 mg capsule RxNorm: 779100 Take 1 Capsule(s) Oral QAM every morning Take 1 capsule by mouth once daily 08/16/19 22 Inactive Levemir FlexTouch U-100 Insulin 100 unit/mL (3 mL) subcutaneous pen RxNorm: 007732 Inject 86 Unit(s) Subcutaneous BID 08/05/19 22 022 Inactive d/c 83units BID Lyrica 100 mg capsule RxNorm: 501854 Take 1 Capsule(s) Oral QHS every night at bedtime Take 1 capsule by mouth once daily at bedtime 07/14/19 22 Inactive Lyrica 50 mg capsule RxNorm: 344027 Take 1 Capsule(s) Oral QAM every morning Take 1 capsule by mouth once daily 07/14/19 22 022 Inactive Levemir FlexTouch U-100 Insulin 100 unit/mL (3 mL) subcutaneous pen RxNorm: 733049 Inject 83 Unit(s) Subcutaneous BID 07/08/19 22 [...] 30 mg tablet,extended release 24 hr RxNorm: 657225 Take 1 Tablet(s) Oral QD 05/05/20 024 Inactive hydralazine 50 mg tablet RxNorm: 688620 Take 1 Tablet(s) Oral QID 05/05/20 022 Inactive venlafaxine ER 225 mg tablet,extended release 24 hr RxNorm: 422223 Take 1 Tablet(s) Oral QD 05/05/20 021 Inactive venlafaxine ER 225 mg tablet,extended release 24 hr RxNorm: 312906 Take 1 Tablet(s) Oral QD 05/05/20 022 Inactive hydralazine 50 mg tablet RxNorm: 806839 Take 1 Tablet(s) Oral QID 05/05/20 021 Inactive aspirin 81 mg tablet,delayed release RxNorm: 672628 Take 1 Tablet(s) Oral QD 03/31/20 022 Inactive Zetia 10 mg tablet RxNorm: 171936 Take 1 Tablet(s) Oral QD 03/31/20 024 Inactive Vitamin D2 1,250 mcg (50,000 unit) capsule RxNorm: 5689557 Take 1 Capsule(s) Oral QW once a week x 12 weeks 03/31/20 022 Inactive Vitamin D2 1,250 mcg (50,000 unit) capsule RxNorm: 5995887 Take 1 Capsule(s) Oral QW once a week 03/31/20 021 Inactive Zetia 10 mg tablet RxNorm: 459788 Take 1 Tablet(s) Oral QD 03/31/20 021 Inactive hydralazine 25 mg tablet RxNorm: 874238 Take 1 Tablet(s) Oral QID 03/31/20 21 021 Inactive hydralazine 25 mg tablet RxNorm: 322474 Take 1 Tablet(s) Oral QID 03/31/20 021 Inactive hydralazine 10 mg tablet RxNorm: 559661 Take 1 Tablet(s) Oral QID 03/03/20 021 Inactive cephalexin 500 mg tablet RxNorm: 438711 Take 1 Tablet(s) Oral QID 02/27/20 021 Inactive cephalexin 500 mg tablet RxNorm: 121789 Take 1 Tablet(s) Oral QID 02/27/20 021 Inactive lisinopril 40 mg tablet RxNorm: 659602 Take 1 Tablet(s) Oral QD 02/11/20 023 Inactive Eliquis 5 mg tablet RxNorm: 7343686 Take 1 Tablet(s) Oral BID 01/05/20 022 Inactive Eliquis 5 mg tablet RxNorm: 2878223 Take 2 Tablet(s) Oral QD 01/01/20 21 021 Inactive Lyrica 50 mg capsule RxNorm: 026193 Take 1 Capsule(s) Oral QAM every morning 12/24/19 021 Inactive Lyrica 100 mg capsule RxNorm: 021299 Take 1 Capsule(s) Oral QHS every night at bedtime 12/24/19 021 Inactive clotrimazole 1 % topical cream RxNorm: 307368 Apply to right foot and toes Topical BID 12/04/19 21 023 Inactive metoprolol succinate ER 200 mg tablet,extended release 24 hr RxNorm: 464356 Take 1 Tablet(s) Oral QD 12/04/19 023 Inactive ciprofloxacin 500 mg tablet RxNorm: 903810 Take 1 Tablet(s) Oral QD 11/30/19 021 Inactive DX ofloxacin otic drops Accu-Chek Guide test strips RxNorm: USE 1 TO CHECK GLUCOSE 4 TIMES DAILY AND NEEDED 11/15/19 21 023 Inactive Blood Glucose Test strips RxNorm: Use 1 Test Strip QID at PRN 11/05/19 21 023 Inactive E11.42 lisinopril 30 mg tablet RxNorm: 047288 Take 1 Tablet(s) Oral QD 10/30/19 21 021 Inactive lisinopril 20 mg tablet RxNorm: 885656 Take 1 Tablet(s) Oral QD 10/23/19 21 021 Inactive lisinopril 20 mg tablet RxNorm: 013567 Take 1 Tablet(s) Oral QD 10/23/19 21 021 Inactive lisinopril 10 mg tablet RxNorm: 165922 Take 1 Tablet(s) Oral QD 10/02/19 21 021 Inactive icosapent ethyl 1 gram capsule RxNorm: 6621140 Take 2 Capsule(s) (2 gm) Oral BID with meals 09/12/19 024 Inactive Okay to dispense one 2gm tab if you have that available. icosapent ethyl 1 gram capsule RxNorm: 1987154 Take 2 Capsule(s) Oral BID 09/12/19 021 Inactive Okay to dispense one 2gm tab if you have that available. amlodipine 10 mg tablet RxNorm: 928134 Take 1 Tablet(s) Oral QD 09/04/19 21 022 Inactive aspirin 81 mg tablet,delayed release RxNorm: 013940 Take 1 Tablet(s) Oral QD 09/04/19 21 021 Inactive Levemir FlexTouch U-100 Insulin 100 unit/mL (3 mL) subcutaneous pen RxNorm: 328542 Inject 150 Unit(s) Subcutaneous BID 09/04/19 21 022 Inactive venlafaxine ER 150 mg tablet,extended release 24 hr RxNorm: 234913 Take 1 Tablet(s) Oral QD 09/04/19 21 021 Inactive clotrimazole-betame thasone 1 %-0.05 % topical cream RxNorm: 149855 Apply to rash on red area on left abdomen/chest Topical BID 08/10/19 21 021 Inactive amlodipine 5 mg tablet RxNorm: 335197 Take 1 Tablet(s) Oral QD 07/31/19 21 021 Inactive cephalexin 500 mg tablet RxNorm: 647732 Take 1 Tablet(s) Oral BID BID - Twice Daily 07/31/19 21 021 Inactive Start 08/01/20 pantoprazole 40 mg tablet,delayed release RxNorm: 617951 Take 1 Tablet(s) Oral QAM every morning 07/08/19 022 Inactive senna 8.6 mg tablet RxNorm: 429433 Take 1 Tablet(s) Oral QD 07/08/19 022 Inactive carbamazepine 200 mg tablet RxNorm: 409919 Take 1 Tablet(s) Oral BID 07/08/19 022 Inactive clopidogrel 75 mg tablet RxNorm: 439027 Take 1 Tablet(s) Oral QD 07/08/19 021 Inactive Blood Glucose Test strips RxNorm: Use 1 Test Strip QID at PRN 07/08/19 21 Inactive E11.42 Novolog Flexpen U-100 Insulin aspart 100 unit/mL (3 mL) subcutaneous RxNorm: 1195336 Administer per sliding scale Milliliter(s) Subcutaneous TID 151-200: 10 u; 201-250: 20 u; 251-300: 30 u; 301-350: 40 u; 351-400: 50 u. 07/08/19 022 Inactive lisinopril 5 mg tablet RxNorm: 641131 Take 1 Tablet(s) Oral QD 07/08/19 021 Inactive Novolog Flexpen U-100 Insulin aspart 100 unit/mL (3 mL) subcutaneous RxNorm: 4514622 Inject 85 Unit(s) Subcutaneous TID 07/08/19 022 Inactive pravastatin 80 mg tablet RxNorm: 567762 Take 1 Tablet(s) Oral QHS every night at bedtime 07/08/19 023 Inactive clotrimazole 1 % topical cream RxNorm: 862145 Apply to bilateral groin areas Topical BID 07/08/19 022 Inactive metoprolol succinate ER 200 mg tablet,extended release 24 hr RxNorm: 287155 Take 1 Tablet(s) Oral QD 07/08/19 021 Inactive Vitamin D3 25 mcg (1,000 unit) tablet RxNorm: 517300 Take 1 Tablet(s) Oral QD 07/08/19 21 021 Inactive isosorbide dinitrate 30 mg tablet RxNorm: 821373 Take 1 Tablet(s) Oral QD 07/08/19 021 Inactive Levemir FlexTouch U-100 Insulin 100 unit/mL (3 mL) subcutaneous pen RxNorm: 027075 Inject 140 Unit(s) Subcutaneous BID 07/08/19 021 Inactive torsemide 20 mg tablet RxNorm: 086340 Take 1 Tablet(s) Oral QD 07/08/19 023 Inactive venlafaxine 75 mg tablet RxNorm: 224868 Take 1 Tablet(s) Oral QD 07/08/19 021 Inactive acetaminophen 500 mg tablet RxNorm: 819819 Take 1 Tablet(s) Oral TID as needed for headache 06/18/19 021 Inactive acetaminophen 500 mg tablet RxNorm: 995072 Take 1 Tablet(s) Oral TID as needed for headache 06/18/19 021 Inactive Lyrica 100 mg capsule RxNorm: 091632 Take 1 Capsule(s) Oral QHS every night at bedtime 06/11/19 021 Inactive Lyrica 50 mg capsule RxNorm: 504077 Take 1 Capsule(s) Oral QAM every morning 06/10/19 21 021 Inactive hydrocortisone 2.5 % topical cream RxNorm: 935645 Apply to bilateral groin creases Topical BID 05/15/20 20 021 Inactive clotrimazole 1 % topical cream RxNorm: 077729 Apply to bilateral groin areas Topical BID 05/15/20 20 021 Inactive Lyrica 50 mg capsule RxNorm: 105647 Take 1 Capsule(s) Oral QAM every morning 05/14/20 20 020 Inactive Lyrica 100 mg capsule RxNorm: 324488 Take 1 Capsule(s) Oral QHS every night at bedtime 05/14/20 20 020 Inactive Blood Glucose Monitoring kit RxNorm: Use as directed QID and PRN 04/24/20 20 024 Inactive Lancets,Thin 28 gauge RxNorm: Use 1 [...] Inactive Nystop 100,000 unit/gram topical powder RxNorm: 360269 Apply to abd folds, under breasts and L side of groin Topical BID x 14 days, then BID PRN 04/08/20 20 Inactive dx: yeast dermatitis Lyrica 100 mg capsule RxNorm: 022276 Take 1 Capsule(s) Oral QHS every night at bedtime 03/13/20 20 Inactive Lyrica 50 mg capsule RxNorm: 868945 Take 1 Capsule(s) Oral QAM every morning 03/13/20 20 Inactive ketoconazole 2 % shampoo RxNorm: 180017 Apply Topical two times a week with showers 03/11/20 20 Inactive cholecalciferol (vitamin D3) 50 mcg (2,000 unit) tablet RxNorm: 413620 Take 1 Tablet(s) Oral QD 03/11/20 20 021 Inactive Zetia 10 mg tablet RxNorm: 571829 Take 1 Tablet(s) Oral QD 03/07/20 20 021 Inactive Zetia 10 mg tablet RxNorm: 984629 Take 1 Tablet(s) Oral QD 03/07/20 20 Inactive Lyrica 50 mg capsule RxNorm: 061616 Take 1 Capsule(s) Oral QAM every morning 02/15/20 20 Inactive Lyrica 100 mg capsule RxNorm: 813317 Take 1 Capsule(s) Oral QHS every night at bedtime 10/01 Inactive Lyrica 100 mg capsule RxNorm: 335962 Take 1 Capsule(s) Oral QHS every night at bedtime 02/15/20 Inactive Lyrica 50 mg capsule RxNorm: 627561 Take 1 Capsule(s) Oral QAM every morning 02/15/20 20 Inactive polyethylene glycol 3350 17 gram/dose oral powder RxNorm: 634605 Take 17=1 capful Gram(s) Oral BID as needed mix with 4-8oz of liquid 06/12/19 024 Inactive metoprolol succinate ER 200 mg tablet,extended release 24 hr RxNorm: 608772 Take 1 Tablet(s) Oral QD 08/11 Activeloperamide 2 mg capsuleRxNorm: 744602Uite 1 Capsule(s) Oral QID as needed 06/12/2021ctivehydralazine 50 mg tabletRxNorm: 548949Oizn 1 Tablet(s) Oral QID 08/11/2022ctivevenlafaxine ER 75 mg capsule,extended release 24 hrRxNorm: 339137Yvqr 3 Capsule(s) Oral QD06/12//Inactiveicosapent ethyl 1 gram capsuleRxNorm: 2497811Fljk 2 Capsule(s) (2 gm) Oral BID with meals /InactiveOkay to dispense one 2gm tab if you have that available.Levemir FlexTouch U-100 Insulin 100 unit/mL (3 mL) subcutaneous pen RxNorm: 065544Imzlns 80 Unit(s) Subcutaneous BID/Inactive Novolog Flexpen U-100 Insulin aspart 100 unit/mL (3 mL) subcutaneousRxNorm: 2537040Rveepk 30 Unit(s) Subcutaneous TID with meals/Inactive Medication Administered No Medication Administered data Reason For Visit No Reason For Visit data Plan of Care Planned Activity Notes Codes Status Date Referral: [facility] WPtel: [address], [address] [id number] USReferralRecords [id number]/08/2023Referral: [facility] W[address]el: [address] [id number]/12/2022Referral: General CardiologyReferralCompleted 1Referral: General PsychologistReferralClosedReferral: General PsychiatristReferralPatient/Family Scheduling Appointment Instructions Comment Date Leonid is a Male being seen living at [facility]. Initial [facility] visit 01/2020. PMHx including DMII, CAD w/ 5 stents, Depression, Seizure Disorder and CKD stage 3. He moved into [facility] in 12/2019 but after a hospitalization 05/2021 he moved to the [facility] to have closer nursing attention. Sister Jyotsna involved in his care cell# [phone] Guardian: Don (tapan met in person 09/01/21), now has Lexii (same group as don)Lab Schedule: /September*September (CBC with diff, CMP, A1c) (Novemebr: CBC, CMP, A1c, Lipids, VitD) 10/08/2023
--- OUTSIDE RECORDS SUMMARY | 2023-04-15 18:00 | XMS_ITS | CCD ---
Author Name Marian VELASCO Chelo Address [address] [place] [address] Phone Organization [facility] Phone Care Team Providers Care Stenotype Operator Name Role Phone Arpit MCKINLEY-CHarrison Primary Care Provider Leona vailable Arpit MCKINLEY-[facility]arrison Chronic Care Management U navailable Summary Purpose DataExchange Insurance Providers Payer name Policy type / Coverage type Covered green party ID Effective Begin Date Effective End Date Medicare [place] Medicare Part B [id number] Unknown Unknown Medicaid [place] Medicare Part B [id number] Unknown Unknown Family history Sister Brittany Suggs [...] 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 09/03/[address]: 7148243 Non-Smoker / No History of Smoking 09/02/[address]: 865456140 No Alcohol Consum ption 09/02/2020 Allergies, Adverse Reactions, Alerts Substance Reaction Codes Entered Date Inactivated Date Status LISINOPRIL RxNorm: 5636575No Inactive DateActiveMetformin IMkWworytw03/28/2020No Inactive DateActive Problems Condition Codes Effective Dates Condition St atus Coronary artery disease invo lving chilkoot coronary artery of chilkoot heart, angina presence unspecified ICD-10: I25.10 ICD-9: 414.0111/ctiveOnychogryposisICD-10: L60.2 ICD-9: 703.811ctiveReducible umbilical herniaICD-10: K42.9 ICD-9: 553.111ctiveType 2 diabetes mellitus with diabetic polyneuropathy, with long-term current use of insulinICD-10: E11.42 ICD-9: 250.6011/ctiveBMI 60.0-69.9, adultICD-10: Z68.44 ICD-9: V85.4410/ctiveCandidal intertrigoICD-10: B37.2 ICD-9: 112.310/ctiveHyperlipidemia associated with type 2 diabetes mellitusICD-10: E11.69 ICD-9: 250.8010/ctiveHyperlipidemia, unspecifiedICD-10: E78.5 ICD-9: 272.410/ctiveStage 2 chronic 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ICD-10: E11.22 ICD-9: 250.4010/ctiveInappropriate sexual behaviorICD-10: Z72.89 ICD-9: 312.8910/ctiveLearning disabilityICD-10: F81.9 ICD-9: 315.210/ctiveMajor depression, recurrentICD-10: F33.9 ICD-9: 296.3010/ctiveOther senior living (current) drug therapyICD-10: Z79.899 ICD-9: V58.6910ctiveRecurrent major depressive disorder, in partial remissionICD-10: F33.41 ICD-9: 296.3510/ctiveAnnual physical examICD-10: Z00.00 ICD-9: V70.009/ctiveEncounter for other specified special examinations ICD-10: Z01.89 ICD-9: V72.8509/ctiveEncounter for screening for nutritional disorder ICD-10: Z13.21 ICD-9: V77.9909/ctiveHypertensive heart disease without heart failure ICD-10: I11.9 ICD-9: 402.9007/ctiveHypokalemiaICD-10: E87.6 ICD-9: 276.807/25/2023ActiveTinea pedis of both feetICD-10: B35.3 ICD-9: 110.407/ctiveParaparesis [...] thrombosisICD-10: Z86.718 ICD-9: V12.5109/ctiveHypercoagulable stateICD-10: D68.59 ICD-9: 289.8109/2ActivePVD (peripheral vascular disease)ICD-10: I73.9 ICD-9: 443.909/2ActiveDepressionICD-10: F32.9 ICD-9: 06392/2ResolvedDVT (deep venous thrombosis)ICD-10: I82.409 ICD-9: 453.4009/2ResolvedEncounter for immunizationICD-10: Z23 ICD-9: V03.8909/2ResolvedLong term (current) use of insulinICD-10: Z79.4 02/10/2022esolvedMuscular painICD-10: M79.10 ICD-9: 729.109esolvedDandruff in adultICD-10: L21.0 ICD-9: 690.1808ctiveHypertension associated with diabetesICD-10: E11.59 ICD-9: 250.80082ResolvedHistory of anemia due to CKDICD-10: N18.9 ICD-9: 585.9072ActiveStage 2 chronic kidney diseaseICD-10: N18.2 ICD-9: 585.2072ActiveGout due to renal impairmentICD-10: M10.30 ICD-9: 274.1006/ctiveSkin tagICD-10: L91.8 ICD-9: 701.911/1ActiveCallus of heelICD-10: L84 ICD-9: 91586/1ActiveImpacted cerumen, left earICD-10: H61.22 ICD-9: 380.408/ctiveContact with [...] Z20.828 ICD-9: V01.7902esolvedHyperhidrosis of palmsICD-10: L74.512 ICD-9: 705.2110497RvlvocLpnsoxikCkorapw46/28/2020ActiveDiabetes mellitus Type 2Aoqbdcl43/28/2020ActiveAnemia in chronic kidney diseaseICD-10: D63.1 02/12/2020ResolvedHyperlipidemia, unspecifiedICD-10: E78.Resolved Medications Medication Codes Instructions Start Date Stop Date Status Fill Instructions rosuvastatin 40 mg tablet RxNorm: 531605 Take 1 Tablet(s) Oral QPM every evening 04/16/20 23 024 Inactive D/C rosuvastatin 20mg venlafaxine ER 75 mg capsule,extended release 24 hr RxNorm: 545216 Take 3 Capsule(s) Oral QD 04/14/20 023 Inactive pregabalin 100 mg capsule RxNorm: 956309 Take 1 Capsule(s) Oral QAM every morning 04/14/20 23 023 Inactive Accu-Chek Guide test strips [...] meter clotrimazole 1 % topical cream RxNorm: 943171 Take apply topically to abdominal folds twice daily for 14 days 03/12/20 024 Inactive Ozempic 1 mg/dose (4 mg/3 mL) subcutaneous pen injector RxNorm: 9815142 Inject 1 Milligram(s) Subcutaneous QW once a week 03/11/20 23 023 Inactive rosuvastatin 20 mg tablet RxNorm: 147977 Take 1 Tablet(s) Oral QD 02/26/20 23 023 Inactive d/c pravastatin 80mg Ozempic 1 mg/dose (4 mg/3 mL) subcutaneous pen injector RxNorm: 6047279 Inject 1 Milligram(s) Subcutaneous QW once a week 02/20/20 23 023 Inactive pregabalin 150 mg capsule RxNorm: 449224 Take 1 Capsule(s) Oral HS at bed time 02/19/20 023 Inactive pregabalin 100 mg capsule RxNorm: 131751 Take 1 Capsule(s) Oral QAM every morning 02/18/20 023 Inactive FreeStyle Chema 2 Sensor kit RxNorm: use as directed 02/04/20 23 024 Inactive venlafaxine ER 75 mg capsule,extended release 24 hr RxNorm: 874789 Take 3 Capsule(s) Oral QD 02/04/20 023 Inactive FreeStyle Chema 2 Sensor kit RxNorm: use as directed 02/04/20 023 Inactive fluconazole 150 mg tablet RxNorm: 375468 Take 1 Tablet(s) Oral on day 3 and on day 6 02/03/20 024 Active chlorthalidone 25 mg tablet RxNorm: 329818 Take 1 Tablet(s) Oral QAM every morning 02/03/20 23 No Stop Date Active venlafaxine ER 150 mg capsule,extended release 24 hr RxNorm: 076003 Take 1 Capsule(s) Oral QD 02/03/20 023 Inactive acetaminophen 500 mg tablet RxNorm: 804549 1 TABLET ORALLY 3 TIMES DAILY (MAX APAP:4GM/24HR) 12/15/19 23 023 Inactive potassium chloride ER 20 mEq tablet,extended release RxNorm: 429900 Take 1 Tablet(s) Oral BID 12/09/19 23 024 Inactive d/c 20mEq once daily (sent from hospital) clotrimazole 1 % topical cream RxNorm: 884529 apply 1g topically to top of feet and in between toes BID 12/09/19 23 023 Inactive nystatin 100,000 unit/gram topical powder RxNorm: 385375 APPLY TO AFFECTED AREAS TOPICALLY 2 TIMES DAILY 11/21/19 23 024 Inactive Nystop 100,000 unit/gram topical powder RxNorm: 741386 Apply to abd folds, under breasts and L side of groin Topical BID x 14 days, then BID PRN 11/20/19 23 023 Inactive dx: yeast dermatitis Bengay Ultra Strength 4 %-30 %-10 % topical cream RxNorm: 174816 Apply 1 Gram(s) Topical QID PRN to feet and legs for neuropathic pain 11/11/19 23 024 Active hydrocortisone 2.5 % topical cream RxNorm: 516978 Apply 1/2 Gram(s) Topical BID as needed 11/10/19 23 024 Inactive clotrimazole 1 % topical cream RxNorm: 947466 Apply 1/2 Gram(s) Topical BID Apply to affected areas of groin, periarea, and abdominal topically 2 times daily 11/10/19 023 Inactive Levemir FlexPen 100 unit/mL (3 mL) solution subcutaneous insulin pen RxNorm: 475706 Inject 30 Unit(s) Subcutaneous BID 10/07/19 23 023 Inactive Humulin R U-500 (Concentrated) Insulin 500 unit/mL subcutaneous soln RxNorm: 980450 Inject 100 Unit(s) Subcutaneous TID 10/07/19 23 024 Inactive Ozempic 0.25 mg or 0.5 mg (2 mg/3 mL) subcutaneous pen injector RxNorm: 2100819 Inject 1/2 Milligram(s) Subcutaneous QW once a week 10/07/19 23 024 Inactive aripiprazole 15 mg tablet RxNorm: 702113 1/2 TAB (7.5MG) ORALLY DAILY (DX:MAJOR DEPRESSIVE DISORDER) 09/23/19 23 023 Inactive Lancets,Thin 28 gauge RxNorm: Use 1 as directed QID 09/15/19 23 024 Inactive Accu-Chek Guide test strips RxNorm: Use 1 Test Strip QID 09/15/19 23 023 Inactive ok to substitute with any covered alternative test strip torsemide 20 mg tablet RxNorm: 772083 Take 1 Tablet(s) Oral BID 09/09/19 23 024 Inactive d/c once daily dosing carvedilol 25 mg tablet RxNorm: 076970 Take 1 Tablet(s) Oral QD 08/25/19 23 024 Inactive pregabalin 150 mg capsule RxNorm: 062874 1 Capsule(s) Oral HS at bed time 08/18/19 23 023 Inactive pregabalin 100 mg capsule RxNorm: 199944 1 Capsule(s) Oral QAM every morning 08/18/19 23 023 Inactive carvedilol 25 mg tablet RxNorm: 925101 1 Tablet(s) Oral QD 07/28/19 23 023 Inactive lisinopril 20 mg tablet RxNorm: 797668 Give 1 Tablet(s) Oral QD 07/28/19 23 023 Inactive Lyrica 150 mg capsule RxNorm: 403007 Take 1 Capsule(s) Oral QHS every night at bedtime 07/19/19 23 023 Inactive d/c 100mg dose Diflucan 150 mg tablet RxNorm: 846260 Take 1 Tablet(s) Oral QD repeat on day 3 and 6 07/19/19 23 023 Inactive pregabalin 100 mg capsule RxNorm: 706604 Take 1 Capsule(s) Oral QAM every morning 07/19/19 23 023 Inactive gatifloxacin 0.5 % eye drops RxNorm: 903890 Instill 1 Drop(s) as directed TID Instill 1 drop in to affected eye(s) starting 1 day prior to surgery and continue until gone (do not exceed 4 weeks). 07/13/19 023 Inactive carvedilol 25 mg tablet RxNorm: 426915 2 Tablet(s) Oral BID 07/13/19 23 023 Inactive Humulin R Regular U-100 Insulin 100 unit/mL injection solution RxNorm: 956371 85 Unit(s) Injection TID 07/13/19 23 023 Inactive ketorolac 0.5 % eye drops RxNorm: 864078 Instill 1 Drop(s) as directed QID Instill 1 drop into affected eye(s) 4 times daily starting 1 day prior to surgery and continue until gone (do not exceed 4 weeks). 07/13/19 23 023 Inactive Diflucan 150 mg tablet RxNorm: 592211 Take 1 Tablet(s) Oral QD repeat on day 3 and 6 06/30/19 23 023 Inactive Accu-Chek Guide test strips RxNorm: Use 1 Test Strip QID Use 1 test strip to monitor blood glucose 4 times daily and as needed. Dx:E11.42. 06/23/19 023 Inactive ok to substitute with any covered alternative test strip dextromethorphan-gu aifenesin 10 mg-100 mg/5 mL oral liquid RxNorm: 833141 Take 10 Milliliter(s) Oral every 4 hours as needed for cough 06/19/19 023 Inactive dextromethorphan-gu aifenesin 10 mg-100 mg/5 mL oral liquid RxNorm: 827819 Take 10 Milliliter(s) Oral every 4 hours as needed for cough 06/19/19 023 Inactive Lyrica 150 mg capsule RxNorm: 170495 Take 1 Capsule(s) Oral QHS every night at bedtime 06/18/19 023 Inactive d/c 100mg dose aripiprazole 15 mg tablet RxNorm: 074773 1/2 TAB (7.5MG) ORALLY DAILY (DX:MAJOR DEPRESSIVE DISORDER) 06/05/19 23 023 Inactive pregabalin 100 mg capsule RxNorm: 325088 1 Capsule(s) Oral QAM every morning 06/02/19 23 023 Inactive Banophen 50 mg capsule RxNorm: 0479290 Take 1 Capsule(s) Oral Q6H every 6 hours as needed 05/19/19 23 No Stop Date Active Novolog Flexpen U-100 Insulin aspart 100 unit/mL (3 mL) subcutaneous RxNorm: 1472660 Inject 10 Unit(s) Subcutaneous QHS every night at bedtime with nighttime snack 04/08/20 22 022 Inactive Novolog Flexpen U-100 Insulin aspart 100 unit/mL (3 mL) subcutaneous RxNorm: 6167546 Inject 42 Unit(s) Subcutaneous TID in addition to sliding scale 04/08/20 22 022 Inactive d/c 36u albuterol sulfate HFA 90 mcg/actuation aerosol inhaler RxNorm: 5786004 Take 2 Puff(s) Inhalation Q4H every four hours as needed as needed for SOB, cough, or wheezing 04/07/20 030 Active Banophen 50 mg capsule RxNorm: 8403180 Take 1 Capsule(s) Oral Q6H every 6 hours as needed 04/06/20 023 Inactive diphenhydramine 50 mg tablet RxNorm: 7496532 Take 1 Tablet(s) Oral Q6H every 6 hours as needed 04/06/20 022 Inactive diphenhydramine 50 mg tablet RxNorm: 9015675 1 Tablet(s) Oral Q6H every 6 hours as needed 04/06/20 022 Inactive Abilify 15 mg tablet RxNorm: 384269 1/2 Tablet(s) Oral QD 03/10/20 023 Inactive Shingrix (PF) 50 mcg/0.5 mL intramuscular suspension, kit RxNorm: 3394903 Administer 1/2 Milliliter(s) Intramuscular QD one time shingrix step 2 ( step 1 given 11/04/21) WITH needle - Nursing please administer upon arrival and once administered post a bridge message with date of administration, cushion sewer, expiration date, and lot# so we can update [facility] 02/18/20 22 022 Inactive dispense with needle Shingrix (PF) 50 mcg/0.5 mL intramuscular suspension, kit RxNorm: 3723798 Administer 1/2 Milliliter(s) Intramuscular QD one time shingrix step 2 ( step 1 given 11/04/21) WITH needle - Nursing please administer upon arrival and once administered post a bridge message with date of administration, cushion sewer, expiration date, and lot# so we can update [facility] 02/18/20 22 022 Inactive dispense with needle polyethylene glycol 3350 17 gram/dose oral powder RxNorm: 078723 Take 17=1 capful Gram(s) Oral QD mix with 4-8oz of liquid 01/08/20 22 023 Inactive take this in addition to BID prn order Lyrica 100 mg capsule RxNorm: 724863 Take 1 Capsule(s) Oral QAM every morning 01/08/20 22 022 Inactive d/c 50mg dose acetaminophen 500 mg tablet RxNorm: 978476 Take 1 Tablet(s) Oral TID 01/08/20 22 022 Inactive d/c PRN order Lyrica 150 mg capsule RxNorm: 383655 Take 1 Capsule(s) Oral QHS every night at bedtime 01/08/20 22 023 Inactive d/c 100mg dose Abilify 5 mg tablet RxNorm: 900525 Take 1 Tablet(s) Oral QD take 1 tab po QD #30 refill 5 dx: MDD 12/12/19 22 022 Inactive Abilify 5 mg tablet RxNorm: 674676 Take 1 Tablet(s) Oral QD take 1 tab po QD #30 refill 5 dx: MDD 12/12/19 22 022 Inactive Novolog Flexpen U-100 Insulin aspart 100 unit/mL (3 mL) subcutaneous RxNorm: 6875259 Inject 42 Unit(s) Subcutaneous TID in addition to sliding scale 12/10/19 22 022 Inactive d/c 36u chlorthalidone 25 mg tablet RxNorm: 908707 Take 1 Tablet(s) Oral QAM every morning 12/10/19 22 023 Inactive pregabalin 50 mg capsule RxNorm: 661485 Take 1 Capsule(s) Oral QAM every morning 11/12/19 22 022 Inactive tetanus-diphtheria toxoids-Td 2 Lf unit-2 Lf unit/0.5 mL IM suspension RxNorm: 139 Take 0.5 Miscellaneous Intramuscular 11/12/19 22 022 Inactive need tdap - nursing to administer upon arrival pregabalin 50 mg capsule RxNorm: 981199 Take 1 Capsule(s) Oral QAM every morning 10/16/19 22 022 Inactive pregabalin 50 mg capsule RxNorm: 979551 Take 1 Capsule(s) Oral QAM every morning 10/16/19 22 022 Inactive pregabalin 50 mg capsule RxNorm: 935601 1 Capsule(s) Oral QAM every morning 10/15/19 22 022 Inactive Shingrix (PF) 50 mcg/0.5 mL intramuscular suspension, kit RxNorm: 8260275 Administer 1/2 Milliliter(s) Intramuscular one time Nursing please administer upon arrival and once administered post a bridge message with date of administration, cushion sewer, expiration date, and lot# so we can update [facility]. 10/09/19 22 022 Inactive shingrix step 1 Shingrix (PF) 50 mcg/0.5 mL intramuscular suspension, kit RxNorm: 0228582 Administer 1/2 Milliliter(s) Intramuscular one time Nursing please administer upon arrival and once administered post a bridge message with date of administration, cushion sewer, expiration date, and lot# so we can update [facility]. 10/09/19 22 022 Inactive shingrix step 1 cholecalciferol (vitamin D3) 1,250 mcg (50,000 unit) capsule RxNorm: 472023 Take 1 Capsule(s) Oral QW once a [...] aspart 100 unit/mL (3 mL) subcutaneous RxNorm: 4000102 Inject 10 Unit(s) Subcutaneous QHS every night at bedtime with nighttime snack 10/08/19 22 Inactive Shingrix (PF) 50 mcg/0.5 mL intramuscular suspension, kit RxNorm: 6193419 ADMINISTER 2-DOSE SERIES PER CDC GUIDELINES 10/08/19 22 Active Shingrix (PF) 50 mcg/0.5 mL intramuscular suspension, kit RxNorm: 6303065 ADMINISTER 2-DOSE SERIES PER CDC GUIDELINES 10/08/19 22 Inactive Novolog Flexpen U-100 Insulin aspart 100 unit/mL (3 mL) subcutaneous RxNorm: 3210300 Inject 36 Unit(s) Subcutaneous TID in addition to sliding scale 10/08/19 22 Inactive Novofine Autocover 30 gauge x 1/3 needle RxNorm: Use 1 Miscellaneous UD as directed Use 1 needle as directed to administer insulin 5 times a day Dx:E11.42. 10/03/19 22 Inactive ok to substitute with any covered alternative pen needle benzoyl peroxide 10 % topical cleanser RxNorm: 022394 Apply 1 Application Topical QD apply to face, wash rinse and dry once daily (may change to QOD if drying) 08/19/19 22 022 Inactive (%covered by insurance) #60ml refill 11 dx: acne benzoyl peroxide 10 % topical cleanser RxNorm: 455818 Apply 1 Application Topical QD apply to face, wash rinse and dry once daily (may change to QOD if drying) 08/19/19 022 Inactive (%covered by insurance) #60ml refill 11 dx: acne benzoyl peroxide 10 % topical cleanser RxNorm: 723511 Apply 1 Application Topical QD apply to face, wash rinse and dry once daily (may change to QOD if drying) 08/19/19 22 022 Inactive (%covered by insurance) #60ml refill 11 dx: acne Lyrica 50 mg capsule RxNorm: 950425 Take 1 Capsule(s) Oral QAM every morning Take 1 capsule by mouth once daily 08/19/19 22 022 Inactive benzoyl peroxide 10 % topical cleanser RxNorm: 686446 Apply 1 Application Topical QD apply to face, wash rinse and dry once daily (may change to QOD if drying) 08/19/19 022 Inactive (%covered by insurance) #60ml refill 11 dx: acne Lyrica 100 mg capsule RxNorm: 449816 Take 1 Capsule(s) Oral QHS every night at bedtime Take 1 capsule by mouth once daily at bedtime 08/19/19 22 022 Inactive Lyrica 100 mg capsule RxNorm: 850334 Take 1 Capsule(s) Oral QHS every night at bedtime Take 1 capsule by mouth once daily at bedtime 08/16/19 22 04/01/2 022 Inactive Lyrica 50 mg capsule RxNorm: 995647 Take 1 Capsule(s) Oral QAM every morning Take 1 capsule by mouth once daily 08/16/19 22 022 Inactive Levemir FlexTouch U-100 Insulin 100 unit/mL (3 mL) subcutaneous pen RxNorm: 897504 Inject 86 Unit(s) Subcutaneous BID 08/05/19 22 022 Inactive d/c 83units BID Lyrica 100 mg capsule RxNorm: 913087 Take 1 Capsule(s) Oral QHS every night at bedtime Take 1 capsule by mouth once daily at bedtime 07/14/19 22 022 Inactive Lyrica 50 mg capsule RxNorm: 984381 Take 1 Capsule(s) Oral QAM every morning Take 1 capsule by mouth once daily 07/14/19 22 022 Inactive Levemir FlexTouch U-100 Insulin 100 unit/mL (3 mL) subcutaneous pen RxNorm: 446105 Inject 83 Unit(s) Subcutaneous BID 07/08/19 22 [...] 30 mg tablet,extended release 24 hr RxNorm: 056819 Take 1 Tablet(s) Oral QD 05/05/20 21 024 Inactive hydralazine 50 mg tablet RxNorm: 466330 Take 1 Tablet(s) Oral QID 05/05/20 21 022 Inactive venlafaxine ER 225 mg tablet,extended release 24 hr RxNorm: 104207 Take 1 Tablet(s) Oral QD 05/05/20 021 Inactive venlafaxine ER 225 mg tablet,extended release 24 hr RxNorm: 701984 Take 1 Tablet(s) Oral QD 05/05/20 022 Inactive hydralazine 50 mg tablet RxNorm: 370007 Take 1 Tablet(s) Oral QID 05/05/20 21 021 Inactive aspirin 81 mg tablet,delayed release RxNorm: 694036 Take 1 Tablet(s) Oral QD 03/31/20 022 Inactive Zetia 10 mg tablet RxNorm: 051774 Take 1 Tablet(s) Oral QD 03/31/20 024 Inactive Vitamin D2 1,250 mcg (50,000 unit) capsule RxNorm: 2345876 Take 1 Capsule(s) Oral QW once a week x 12 weeks 03/31/20 022 Inactive Vitamin D2 1,250 mcg (50,000 unit) capsule RxNorm: 9120446 Take 1 Capsule(s) Oral QW once a week 03/31/20 021 Inactive Zetia 10 mg tablet RxNorm: 061369 Take 1 Tablet(s) Oral QD 03/31/20 021 Inactive hydralazine 25 mg tablet RxNorm: 040567 Take 1 Tablet(s) Oral QID 03/31/20 021 Inactive hydralazine 25 mg tablet RxNorm: 144011 Take 1 Tablet(s) Oral QID 03/31/20 021 Inactive hydralazine 10 mg tablet RxNorm: 059556 Take 1 Tablet(s) Oral QID 03/03/20 021 Inactive cephalexin 500 mg tablet RxNorm: 894157 Take 1 Tablet(s) Oral QID 02/27/20 021 Inactive cephalexin 500 mg tablet RxNorm: 516313 Take 1 Tablet(s) Oral QID 02/27/20 021 Inactive lisinopril 40 mg tablet RxNorm: 806192 Take 1 Tablet(s) Oral QD 02/11/20 023 Inactive Eliquis 5 mg tablet RxNorm: 1865194 Take 1 Tablet(s) Oral BID 01/05/20 022 Inactive Eliquis 5 mg tablet RxNorm: 9686807 Take 2 Tablet(s) Oral QD 01/01/20 21 021 Inactive Lyrica 50 mg capsule RxNorm: 571301 Take 1 Capsule(s) Oral QAM every morning 12/24/19 21 021 Inactive Lyrica 100 mg capsule RxNorm: 739005 Take 1 Capsule(s) Oral QHS every night at bedtime 12/24/19 21 021 Inactive clotrimazole 1 % topical cream RxNorm: 972030 Apply to right foot and toes Topical BID 12/04/19 21 023 Inactive metoprolol succinate ER 200 mg tablet,extended release 24 hr RxNorm: 948329 Take 1 Tablet(s) Oral QD 12/04/19 21 023 Inactive ciprofloxacin 500 mg tablet RxNorm: 147833 Take 1 Tablet(s) Oral QD 11/30/19 21 021 Inactive DX ofloxacin otic drops Accu-Chek Guide test strips RxNorm: USE 1 TO CHECK GLUCOSE 4 TIMES DAILY AND NEEDED 11/15/19 21 023 Inactive Blood Glucose Test strips RxNorm: Use 1 Test Strip QID at PRN 11/05/19 21 023 Inactive E11.42 lisinopril 30 mg tablet RxNorm: 720467 Take 1 Tablet(s) Oral QD 10/30/19 21 021 Inactive lisinopril 20 mg tablet RxNorm: 217256 Take 1 Tablet(s) Oral QD 10/23/19 21 021 Inactive lisinopril 20 mg tablet RxNorm: 082901 Take 1 Tablet(s) Oral QD 10/23/19 21 021 Inactive lisinopril 10 mg tablet RxNorm: 342976 Take 1 Tablet(s) Oral QD 10/02/19 21 021 Inactive icosapent ethyl 1 gram capsule RxNorm: 8845151 Take 2 Capsule(s) (2 gm) Oral BID with meals 09/12/19 21 024 Inactive Okay to dispense one 2gm tab if you have that available. icosapent ethyl 1 gram capsule RxNorm: 2339303 Take 2 Capsule(s) Oral BID 09/12/19 21 021 Inactive Okay to dispense one 2gm tab if you have that available. amlodipine 10 mg tablet RxNorm: 964715 Take 1 Tablet(s) Oral QD 09/04/19 21 022 Inactive aspirin 81 mg tablet,delayed release RxNorm: 433883 Take 1 Tablet(s) Oral QD 09/04/19 21 021 Inactive Levemir FlexTouch U-100 Insulin 100 unit/mL (3 mL) subcutaneous pen RxNorm: 678716 Inject 150 Unit(s) Subcutaneous BID 09/04/19 21 022 Inactive venlafaxine ER 150 mg tablet,extended release 24 hr RxNorm: 592768 Take 1 Tablet(s) Oral QD 09/04/19 21 021 Inactive clotrimazole-betame thasone 1 %-0.05 % topical cream RxNorm: 423359 Apply to rash on red area on left abdomen/chest Topical BID 08/10/19 21 021 Inactive amlodipine 5 mg tablet RxNorm: 307734 Take 1 Tablet(s) Oral QD 07/31/19 21 Inactive cephalexin 500 mg tablet RxNorm: 995240 Take 1 Tablet(s) Oral BID BID - Twice Daily 07/31/19 21 021 Inactive Start 08/01/20 pantoprazole 40 mg tablet,delayed release RxNorm: 207308 Take 1 Tablet(s) Oral QAM every morning 07/08/19 022 Inactive senna 8.6 mg tablet RxNorm: 176873 Take 1 Tablet(s) Oral QD 07/08/19 022 Inactive carbamazepine 200 mg tablet RxNorm: 333149 Take 1 Tablet(s) Oral BID 07/08/19 Inactive clopidogrel 75 mg tablet RxNorm: 967135 Take 1 Tablet(s) Oral QD 07/08/19 021 Inactive Blood Glucose Test strips RxNorm: Use 1 Test Strip QID at PRN 07/08/19 Inactive E11.42 Novolog Flexpen U-100 Insulin aspart 100 unit/mL (3 mL) subcutaneous RxNorm: 8973961 Administer per sliding scale Milliliter(s) Subcutaneous TID 151-200: 10 u; 201-250: 20 u; 251-300: 30 u; 301-350: 40 u; 351-400: 50 u. 07/08/19 022 Inactive lisinopril 5 mg tablet RxNorm: 770959 Take 1 Tablet(s) Oral QD 07/08/19 021 Inactive Novolog Flexpen U-100 Insulin aspart 100 unit/mL (3 mL) subcutaneous RxNorm: 3247937 Inject 85 Unit(s) Subcutaneous TID 07/08/19 022 Inactive pravastatin 80 mg tablet RxNorm: 982436 Take 1 Tablet(s) Oral QHS every night at bedtime 07/08/19 023 Inactive clotrimazole 1 % topical cream RxNorm: 533898 Apply to bilateral groin areas Topical BID 07/08/19 21 022 Inactive metoprolol succinate ER 200 mg tablet,extended release 24 hr RxNorm: 005915 Take 1 Tablet(s) Oral QD 07/08/19 021 Inactive Vitamin D3 25 mcg (1,000 unit) tablet RxNorm: 691811 Take 1 Tablet(s) Oral QD 07/08/19 021 Inactive isosorbide dinitrate 30 mg tablet RxNorm: 724977 Take 1 Tablet(s) Oral QD 07/08/19 021 Inactive Levemir FlexTouch U-100 Insulin 100 unit/mL (3 mL) subcutaneous pen RxNorm: 523819 Inject 140 Unit(s) Subcutaneous BID 07/08/19 21 021 Inactive torsemide 20 mg tablet RxNorm: 404770 Take 1 Tablet(s) Oral QD 07/08/19 21 023 Inactive venlafaxine 75 mg tablet RxNorm: 855548 Take 1 Tablet(s) Oral QD 07/08/19 021 Inactive acetaminophen 500 mg tablet RxNorm: 749314 Take 1 Tablet(s) Oral TID as needed for headache 06/18/19 021 Inactive acetaminophen 500 mg tablet RxNorm: 489321 Take 1 Tablet(s) Oral TID as needed for headache 06/18/19 021 Inactive Lyrica 100 mg capsule RxNorm: 137374 Take 1 Capsule(s) Oral QHS every night at bedtime 06/11/19 021 Inactive Lyrica 50 mg capsule RxNorm: 517363 Take 1 Capsule(s) Oral QAM every morning 06/10/19 021 Inactive hydrocortisone 2.5 % topical cream RxNorm: 444221 Apply to bilateral groin creases Topical BID 05/15/20 20 021 Inactive clotrimazole 1 % topical cream RxNorm: 064243 Apply to bilateral groin areas Topical BID 05/15/20 20 021 Inactive Lyrica 50 mg capsule RxNorm: 242145 Take 1 Capsule(s) Oral QAM every morning 05/14/20 20 020 Inactive Lyrica 100 mg capsule RxNorm: 098502 Take 1 Capsule(s) Oral QHS every night [...] Inactive Nystop 100,000 unit/gram topical powder RxNorm: 683013 Apply to abd folds, under breasts and L side of groin Topical BID x 14 days, then BID PRN 04/08/20 20 Inactive dx: yeast dermatitis Lyrica 100 mg capsule RxNorm: 581753 Take 1 Capsule(s) Oral QHS every night at bedtime 03/13/20 20 Inactive Lyrica 50 mg capsule RxNorm: 948891 Take 1 Capsule(s) Oral QAM every morning 03/13/20 20 Inactive ketoconazole 2 % shampoo RxNorm: 504846 Apply Topical two times a week with showers 03/11/20 20 Inactive cholecalciferol (vitamin D3) 50 mcg (2,000 unit) tablet RxNorm: 874418 Take 1 Tablet(s) Oral QD 03/11/20 20 021 Inactive Zetia 10 mg tablet RxNorm: 573234 Take 1 Tablet(s) Oral QD 03/07/20 20 021 Inactive Zetia 10 mg tablet RxNorm: 551935 Take 1 Tablet(s) Oral QD 03/07/20 20 Inactive Lyrica 50 mg capsule RxNorm: 668481 Take 1 Capsule(s) Oral QAM every morning 02/15/20 20 Inactive Lyrica 100 mg capsule RxNorm: 615277 Take 1 Capsule(s) Oral QHS every night at bedtime 02/15/20 20 Inactive Lyrica 100 mg capsule RxNorm: 042387 Take 1 Capsule(s) Oral QHS every night at bedtime 02/15/20 20 Inactive Lyrica 50 mg capsule RxNorm: 050280 Take 1 Capsule(s) Oral QAM every morning 02/15/20 20 Inactive polyethylene glycol 3350 17 gram/dose oral powder RxNorm: 305510 Take 17=1 capful Gram(s) Oral BID as needed mix with 4-8oz of liquid 06/12/19 Inactive metoprolol succinate ER 200 mg tablet,extended release 24 hr RxNorm: 851912 Take 1 Tablet(s) Oral QD 08/11 Activeloperamide 2 mg capsuleRxNorm: 221082Digc 1 Capsule(s) Oral QID as needed 06/12/2021ctivehydralazine 50 mg tabletRxNorm: 204624Jwrd 1 Tablet(s) Oral QID 08/11/2022ctivevenlafaxine ER 75 mg capsule,extended release 24 hrRxNorm: 102973Zppy 3 Capsule(s) Oral QD/Inactiveicosapent ethyl 1 gram capsuleRxNorm: 0041154Wpqr 2 Capsule(s) (2 gm) Oral BID with meals /InactiveOkay to dispense one 2gm tab if you have that available.Levemir FlexTouch U-100 Insulin 100 unit/mL (3 mL) subcutaneous pen RxNorm: 133641Wbshdc 80 Unit(s) Subcutaneous BID/Inactive Novolog Flexpen U-100 Insulin aspart 100 unit/mL (3 mL) subcutaneousRxNorm: 3705002Tairam 30 Unit(s) Subcutaneous TID with meals/Inactive Medication Administered No Medication Administered data Vital Signs Date Vital 04/14/2023 Height: 5'5 Code: 8302-2 Weight : Code: 3141-9 Reason For Visit No Reason For Visit data Encounters Encounter Performer Location Location Address Codes Cristiano e ([id number]) Home or Residence Vi sit Est Pt - Moderate Level, 40 mins Diagnosis: Coronary artery disease involving chilkoot coronary artery of chilkoot heart, angina presence unspecified[ICD10: I25.10] Diagnosis: Type 2 diabetes mellitus with diabetic polyneuropathy, with long-term current use of insulin[ICD10: E11.42] Diagnosis: Reducible umbilical hernia[ICD10: K42.9] Diagnosis: Onychogryposis[ICD10: L60.2]Chelo Wiseman on [id number] [place] [id number]-9: 736550806/14/2022 Plan of Care Planned Activity Notes Codes Status Date Patient Education: Patient Medication Summary Hgnwwtdox49/29/2023atient Education: TedhcudbnYyqnryvsk11/29/2023ppointment: Sandra Clark WPtel: [address] [place] [address] [id number] [facility] Psych Follow Up12/09/2022ppointment: Tapan Shirley WPtel: [address] [place] [address] 300 [id number] [facility]Referral: [facility] WPtel: [address], [address] [id number] USReferralRecords Zwpicyrd16/08/2023ppointment: Tapan Shirley WPtel: [address] [facility] 300 [id number] US/U008/11/2022ppointment: Tapan Shirley WPtel: [address] [place] [address] 300 [id number] USF/U007/14/2022ppointment: Tapan Shirley WPtel: [address] [place], [place] [id number] [facility]/U02Referral: [facility] WPtel: [address] [id number] NZEajwwfwyLerclilei81/12/2022Referral: General CardiologyReferralCompleted 1Referral: General PsychologistReferralClosedReferral: General PsychiatristReferralPatient/Family [...] Sister Jyotsna involved in his care cell# [phone] Guardian: Giulia (tapan met in person 09/01/21), now has Lexii (same group as giulia)Lab Schedule: Mar-/September*September (CBC with diff, CMP, A1c) (Novemebr: CBC, CMP, A1c, Lipids, VitD) 10/08/2023 Type 2 diabetes mellitus wit h diabetic polyneuropathy, with long-term current use of insulin DM2: High dose insulin. Needs to follow up with endocrinology. This has been set up for mid-April Continue mealtime insulin 100U TID?? Continue Levemir 30U BID HLD: Notable elevations. Trigs 78526 (Feb 2023) >> 1416 (Mar 2023); Non-HDL 219 >> 151. ? Again discussed dangers of severely elevated lipids and tryglicerides.?? He makes poor dietary choices but is also very limited in terms of food choices. Will eat whatever the staff give me and does not advocate for a heart healthy diet. Needs to be on high intensity statin.?? Has tolerated Crestor 20mg without side effects. Start Rosuvastatin 40mg QD.?? Continue Zetia 10mg QD Coronary artery disease involving chilkoot coronary artery of chilkoot heart, angina presence unspecified Keep follow up cardiology for May as scheduled. Stable cardiopulmonary symptoms today. No acuteconcerns.?? Reducible umbilical hernia Has had for years- provide reassurance. He is asymptomatic. Will continue to monitor for pain, strangulation, constipation, etc Onychogryposis Toenails Debrided: 10 out of 10 Left Foot: All 5 digits Right Foot: All 5 digits Method: Medical grade nail nippers to reduce length & thickness. Lower Extremities: Nails are thick and discolored and patient has an absence of hair growth on lower extremities. Rationale: Patient is unsteady on feet resulting from/worsened by the thickening and dystrophy of the infected toenail plates. Treatment: Anti-fungal discussion deferred as treatment not appropriate or beneficial to patient..04/14/2023
--- OUTSIDE RECORDS SUMMARY | 2023-04-27 18:00 | XMS_ITS | CCD ---
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 Cartographic Drafter Name Role Phone Arpit [facility] Primary Care Provider Leona vailable [place] [facility] U navailable Summary Purpose DataExchange Insurance Providers Payer name Policy type / Coverage type Covered alliance party ID Effective Begin Date Effective End Date [place] [id number] Unknown Unknown [place] B [id number] Unknown Unknown Family history Sister Brittany Suggs [...] Custodial 09/03/[address]: 0092440 Non-Smoker / No History of Smoking 09/02/[address]: 744727720 No Alcohol Consum ption 09/02/2020 Allergies, Adverse Reactions, Alerts Substance Reaction Codes Entered Date Inactivated Date Status LISINOPRIL RxNorm: 2646192No Inactive DateActiveMetformin NGxNnmrifk66/28/2020No Inactive DateActive Problems Condition Codes Effective Dates Condition St atus Coronary artery disease invo lving [place] coronary artery of [place] heart, angina presence unspecified ICD-10: I25.10 ICD-9: [...] ICD-9: 315.210/ctiveMajor depression, recurrentICD-10: F33.9 ICD-9: 296.3010/ctiveOther vice president of instruction (current) drug therapyICD-10: Z79.899 ICD-9: V58.6910/ctiveRecurrent major [...] vascular disease)ICD-10: I73.9 ICD-9: 443.909/2ActiveDepressionICD-10: F32.9 ICD-9: 87200/esolvedDVT (deep venous thrombosis)ICD-10: I82.409 ICD-9: 453.4009/2ResolvedEncounter for immunizationICD-10: Z23 ICD-9: V03.8909/esolvedLong term (current) use of insulinICD-10: Z79.4 02/10/2022esolvedMuscular painICD-10: M79.10 ICD-9: 729.109/2ResolvedDandruff in adultICD-10: L21.0 ICD-9: 690.1808ctiveHypertension associated with diabetesICD-10: E11.59 ICD-9: 250.8008esolvedHistory of anemia due to CKDICD-10: N18.9 ICD-9: 585.907/2ActiveStage 2 chronic kidney diseaseICD-10: N18.2 ICD-9: 585.207/ctiveGout due to renal impairmentICD-10: M10.30 ICD-9: 274.1006ctiveSkin tagICD-10: L91.8 ICD-9: 701.911/ctiveCallus of heelICD-10: L84 ICD-9: 903261ActiveImpacted cerumen, left earICD-10: H61.22 ICD-9: 380.408/ctiveContact with [...] Z20.828 ICD-9: V01.7902esolvedHyperhidrosis of palmsICD-10: L74.512 ICD-9: 705.3842MhsvznSusyybkuOlpvjvg54/28/2020ActiveDiabetes mellitus Type 6Hxnyopy79/28/2020ActiveAnemia in chronic kidney diseaseICD-10: D63.1 02/12/2020ResolvedHyperlipidemia, unspecifiedICD-10: E78.Resolved Medications Medication Codes Instructions Start Date Stop Date Status Fill Instructions pregabalin 100 mg capsule RxNorm: 009738 Take 1 Capsule(s) Oral QAM every morning 04/27/20 23 024 Inactive Levemir FlexPen 100 unit/mL (3 mL) solution subcutaneous insulin pen RxNorm: 647390 Inject 30 Unit(s) Subcutaneous BID 04/27/20 23 024 Inactive rosuvastatin 40 mg tablet RxNorm: 805972 Take 1 Tablet(s) Oral QPM every evening 04/16/20 024 Inactive D/C rosuvastatin 20mg venlafaxine ER 75 mg capsule,extended release 24 hr RxNorm: 977885 Take 3 Capsule(s) Oral QD 04/14/20 023 Inactive pregabalin 100 mg capsule RxNorm: 415023 Take 1 Capsule(s) Oral QAM every morning [...] meter clotrimazole 1 % topical cream RxNorm: 548559 Take apply topically to abdominal folds twice daily for 14 days 03/12/20 024 Inactive Ozempic 1 mg/dose (4 mg/3 mL) subcutaneous pen injector RxNorm: 6864766 Inject 1 Milligram(s) Subcutaneous QW once a week 03/11/20 023 Inactive rosuvastatin 20 mg tablet RxNorm: 406022 Take 1 Tablet(s) Oral QD 02/26/20 23 023 Inactive d/c pravastatin 80mg Ozempic 1 mg/dose (4 mg/3 mL) subcutaneous pen injector RxNorm: 1704024 Inject 1 Milligram(s) Subcutaneous QW once a week 02/20/20 023 Inactive pregabalin 150 mg capsule RxNorm: 748322 Take 1 Capsule(s) Oral HS at bed time 02/19/20 23 023 Inactive pregabalin 100 mg capsule RxNorm: 324154 Take 1 Capsule(s) Oral QAM every morning 02/18/20 023 Inactive FreeStyle Chema 2 Sensor kit RxNorm: use as directed 02/04/20 23 024 Inactive venlafaxine ER 75 mg capsule,extended release 24 hr RxNorm: 020177 Take 3 Capsule(s) Oral QD 02/04/20 023 Inactive FreeStyle Chema 2 Sensor kit RxNorm: use as directed 02/04/20 23 023 Inactive fluconazole 150 mg tablet RxNorm: 668082 Take 1 Tablet(s) Oral on day 3 and on day 6 02/03/20 23 024 Active chlorthalidone 25 mg tablet RxNorm: 015293 Take 1 Tablet(s) Oral QAM every morning 02/03/20 23 No Stop Date Active venlafaxine ER 150 mg capsule,extended release 24 hr RxNorm: 236166 Take 1 Capsule(s) Oral QD 02/03/20 23 023 Inactive acetaminophen 500 mg tablet RxNorm: 066436 1 TABLET ORALLY 3 TIMES DAILY (MAX APAP:4GM/24HR) 12/15/19 23 023 Inactive potassium chloride ER 20 mEq tablet,extended release RxNorm: 827772 Take 1 Tablet(s) Oral BID 12/09/19 23 024 Inactive d/c 20mEq once daily (sent from hospital) clotrimazole 1 % topical cream RxNorm: 214275 apply 1g topically to top of feet and in between toes BID 12/09/19 23 023 Inactive nystatin 100,000 unit/gram topical powder RxNorm: 072851 APPLY TO AFFECTED AREAS TOPICALLY 2 TIMES DAILY 11/21/19 23 024 Inactive Nystop 100,000 unit/gram topical powder RxNorm: 846425 Apply to abd folds, under breasts and L side of groin Topical BID x 14 days, then BID PRN 11/20/19 023 Inactive dx: yeast dermatitis [place] Ultra Strength 4 %-30 %-10 % topical cream RxNorm: 483444 Apply 1 Gram(s) Topical QID PRN to feet and legs for neuropathic pain 11/11/19 024 Active hydrocortisone 2.5 % topical cream RxNorm: 255228 Apply 1/2 Gram(s) Topical BID as needed 11/10/19 024 Inactive clotrimazole 1 % topical cream RxNorm: 312239 Apply 1/2 Gram(s) Topical BID Apply to affected areas of groin, periarea, and abdominal topically 2 times daily 11/10/19 023 Inactive Levemir FlexPen 100 unit/mL (3 mL) solution subcutaneous insulin pen RxNorm: 764755 Inject 30 Unit(s) Subcutaneous BID 10/07/19 023 Inactive Humulin R U-500 (Concentrated) Insulin 500 unit/mL subcutaneous soln RxNorm: 005907 Inject 100 Unit(s) Subcutaneous TID 10/07/19 024 Inactive Ozempic 0.25 mg or 0.5 mg (2 mg/3 mL) subcutaneous pen injector RxNorm: 1549126 Inject 1/2 Milligram(s) Subcutaneous QW once a week 10/07/19 024 Inactive aripiprazole 15 mg tablet RxNorm: 506867 1/2 TAB (7.5MG) ORALLY DAILY (DX:MAJOR DEPRESSIVE DISORDER) 09/23/19 23 023 Inactive Lancets,Thin 28 gauge RxNorm: Use 1 as directed QID 09/15/19 23 024 Inactive Accu-Chek Guide test strips RxNorm: Use 1 Test Strip QID 09/15/19 23 023 Inactive ok to substitute with any covered alternative test strip torsemide 20 mg tablet RxNorm: 576335 Take 1 Tablet(s) Oral BID 09/09/19 024 Inactive d/c once daily dosing carvedilol 25 mg tablet RxNorm: 651669 Take 1 Tablet(s) Oral QD 08/25/19 23 024 Inactive pregabalin 150 mg capsule RxNorm: 266953 1 Capsule(s) Oral HS at bed time 08/18/19 23 023 Inactive pregabalin 100 mg capsule RxNorm: 142028 1 Capsule(s) Oral QAM every morning 08/18/19 23 023 Inactive carvedilol 25 mg tablet RxNorm: 658472 1 Tablet(s) Oral QD 07/28/19 23 023 Inactive lisinopril 20 mg tablet RxNorm: 676060 Give 1 Tablet(s) Oral QD 07/28/19 23 023 Inactive Lyrica 150 mg capsule RxNorm: 866726 Take 1 Capsule(s) Oral QHS every night at bedtime 07/19/19 023 Inactive d/c 100mg dose Diflucan 150 mg tablet RxNorm: 307180 Take 1 Tablet(s) Oral QD repeat on day 3 and 6 07/19/19 23 023 Inactive pregabalin 100 mg capsule RxNorm: 601151 Take 1 Capsule(s) Oral QAM every morning 07/19/19 23 023 Inactive gatifloxacin 0.5 % eye drops RxNorm: 271393 Instill 1 Drop(s) as directed TID Instill 1 drop in to affected eye(s) starting 1 day prior to surgery and continue until gone (do not exceed 4 weeks). 07/13/19 23 023 Inactive carvedilol 25 mg tablet RxNorm: 055597 2 Tablet(s) Oral BID 07/13/19 23 023 Inactive Humulin R Regular U-100 Insulin 100 unit/mL injection solution RxNorm: 891453 85 Unit(s) Injection TID 07/13/19 23 023 Inactive ketorolac 0.5 % eye drops RxNorm: 097849 Instill 1 Drop(s) as directed QID Instill 1 drop into affected eye(s) 4 times daily starting 1 day prior to surgery and continue until gone (do not exceed 4 weeks). 07/13/19 23 023 Inactive Diflucan 150 mg tablet RxNorm: 558512 Take 1 Tablet(s) Oral QD repeat on day 3 and 6 06/30/19 023 Inactive Accu-Chek Guide test strips RxNorm: Use 1 Test Strip QID Use 1 test strip to monitor blood glucose 4 times daily and as needed. Dx:E11.42. 06/23/19 23 023 Inactive ok to substitute with any covered alternative test strip dextromethorphan-gu aifenesin 10 mg-100 mg/5 mL oral liquid RxNorm: 119534 Take 10 Milliliter(s) Oral every 4 hours as needed for cough 06/19/19 023 Inactive dextromethorphan-gu aifenesin 10 mg-100 mg/5 mL oral liquid RxNorm: 159804 Take 10 Milliliter(s) Oral every 4 hours as needed for cough 06/19/19 023 Inactive Lyrica 150 mg capsule RxNorm: 577474 Take 1 Capsule(s) Oral QHS every night at bedtime 06/18/19 023 Inactive d/c 100mg dose aripiprazole 15 mg tablet RxNorm: 770280 1/2 TAB (7.5MG) ORALLY DAILY (DX:MAJOR DEPRESSIVE DISORDER) 06/05/19 23 023 Inactive pregabalin 100 mg capsule RxNorm: 626371 1 Capsule(s) Oral QAM every morning 06/02/19 23 023 Inactive Banophen 50 mg capsule RxNorm: 1081637 Take 1 Capsule(s) Oral Q6H every 6 hours as needed 05/19/19 23 No Stop Date Active Novolog Flexpen U-100 Insulin aspart 100 unit/mL (3 mL) subcutaneous RxNorm: 3141996 Inject 10 Unit(s) Subcutaneous QHS every night at bedtime with nighttime snack 04/08/20 22 022 Inactive Novolog Flexpen U-100 Insulin aspart 100 unit/mL (3 mL) subcutaneous RxNorm: 4777398 Inject 42 Unit(s) Subcutaneous TID in addition to sliding scale 04/08/20 022 Inactive d/c 36u albuterol sulfate HFA 90 mcg/actuation aerosol inhaler RxNorm: 4849327 Take 2 Puff(s) Inhalation Q4H every four hours as needed as needed for SOB, cough, or wheezing 04/07/20 030 Active Banophen 50 mg capsule RxNorm: 5198587 Take 1 Capsule(s) Oral Q6H every 6 hours as needed 04/06/20 023 Inactive diphenhydramine 50 mg tablet RxNorm: 5091482 Take 1 Tablet(s) Oral Q6H every 6 hours as needed 04/06/20 022 Inactive diphenhydramine 50 mg tablet RxNorm: 1137938 1 Tablet(s) Oral Q6H every 6 hours as needed 04/06/20 022 Inactive Abilify 15 mg tablet RxNorm: 600809 1/2 Tablet(s) Oral QD 03/10/20 023 Inactive Shingrix (PF) 50 mcg/0.5 mL intramuscular suspension, kit RxNorm: 6209337 Administer 1/2 Milliliter(s) Intramuscular QD one time shingrix step 2 ( step 1 given 11/04/21) WITH needle - Nursing please administer upon arrival and once administered post a bridge message with date of administration, rn palliative, expiration date, and lot# so we can update [facility] 02/18/20 22 022 Inactive dispense with needle Shingrix (PF) 50 mcg/0.5 mL intramuscular suspension, kit RxNorm: 6100704 Administer 1/2 Milliliter(s) Intramuscular QD one time shingrix step 2 ( step 1 given 11/04/21) WITH needle - Nursing please administer upon arrival and once administered post a bridge message with date of administration, rn palliative, expiration date, and lot# so we can update [facility] 02/18/20 22 022 Inactive dispense with needle polyethylene glycol 3350 17 gram/dose oral powder RxNorm: 325811 Take 17=1 capful Gram(s) Oral QD mix with 4-8oz of liquid 01/08/20 22 023 Inactive take this in addition to BID prn order Lyrica 100 mg capsule RxNorm: 586273 Take 1 Capsule(s) Oral QAM every morning 01/08/20 22 022 Inactive d/c 50mg dose acetaminophen 500 mg tablet RxNorm: 847651 Take 1 Tablet(s) Oral TID 01/08/20 22 022 Inactive d/c PRN order Lyrica 150 mg capsule RxNorm: 614784 Take 1 Capsule(s) Oral QHS every night at bedtime 01/08/20 22 023 Inactive d/c 100mg dose Abilify 5 mg tablet RxNorm: 897336 Take 1 Tablet(s) Oral QD take 1 tab po QD #30 refill 5 dx: MDD 12/12/19 22 022 Inactive Abilify 5 mg tablet RxNorm: 388422 Take 1 Tablet(s) Oral QD take 1 tab po QD #30 refill 5 dx: MDD 12/12/19 22 022 Inactive Novolog Flexpen U-100 Insulin aspart 100 unit/mL (3 mL) subcutaneous RxNorm: 8103994 Inject 42 Unit(s) Subcutaneous TID in addition to sliding scale 12/10/19 22 022 Inactive d/c 36u chlorthalidone 25 mg tablet RxNorm: 072770 Take 1 Tablet(s) Oral QAM every morning 12/10/19 22 023 Inactive pregabalin 50 mg capsule RxNorm: 244873 Take 1 Capsule(s) Oral QAM every morning 11/12/19 22 022 Inactive tetanus-diphtheria toxoids-Td 2 Lf unit-2 Lf unit/0.5 mL IM suspension RxNorm: 139 Take 0.5 Miscellaneous Intramuscular 11/12/19 22 022 Inactive need tdap - nursing to administer upon arrival pregabalin 50 mg capsule RxNorm: 542008 Take 1 Capsule(s) Oral QAM every morning 10/16/19 22 022 Inactive pregabalin 50 mg capsule RxNorm: 966460 Take 1 Capsule(s) Oral QAM every morning 10/16/19 22 022 Inactive pregabalin 50 mg capsule RxNorm: 370374 1 Capsule(s) Oral QAM every morning 10/15/19 22 Inactive Shingrix (PF) 50 mcg/0.5 mL intramuscular suspension, kit RxNorm: 4756025 Administer 1/2 Milliliter(s) Intramuscular one time Nursing please administer upon arrival and once administered post a bridge message with date of administration, rn palliative, expiration date, and lot# so we can update [facility]. 10/09/19 22 022 Inactive shingrix step 1 Shingrix (PF) 50 mcg/0.5 mL intramuscular suspension, kit RxNorm: 1569188 Administer 1/2 Milliliter(s) Intramuscular one time Nursing please administer upon arrival and once administered post a bridge message with date of administration, rn palliative, expiration date, and lot# so we can update [facility]. 10/09/19 22 022 Inactive shingrix step 1 cholecalciferol (vitamin D3) 1,250 mcg (50,000 unit) capsule RxNorm: 400318 Take 1 Capsule(s) Oral QW once a [...] aspart 100 unit/mL (3 mL) subcutaneous RxNorm: 4697086 Inject 10 Unit(s) Subcutaneous QHS every night at bedtime with nighttime snack 10/08/19 22 022 Inactive Shingrix (PF) 50 mcg/0.5 mL intramuscular suspension, kit RxNorm: 0007985 ADMINISTER 2-DOSE SERIES PER CDC GUIDELINES 10/08/19 22 022 Active Shingrix (PF) 50 mcg/0.5 mL intramuscular suspension, kit RxNorm: 6704772 ADMINISTER 2-DOSE SERIES PER CDC GUIDELINES 10/08/19 22 Inactive Novolog Flexpen U-100 Insulin aspart 100 unit/mL (3 mL) subcutaneous RxNorm: 8964187 Inject 36 Unit(s) Subcutaneous TID in addition to sliding scale 10/08/19 Inactive Novofine Autocover 30 gauge x 1/3 needle RxNorm: Use 1 Miscellaneous UD as directed Use 1 needle as directed to administer insulin 5 times a day Dx:E11.42. 10/03/19 Inactive ok to substitute with any covered alternative pen needle benzoyl peroxide 10 % topical cleanser RxNorm: 033707 Apply 1 Application Topical QD apply to face, wash rinse and dry once daily (may change to QOD if drying) 08/19/19 022 Inactive (%covered by insurance) #60ml refill 11 dx: acne benzoyl peroxide 10 % topical cleanser RxNorm: 382012 Apply 1 Application Topical QD apply to face, wash rinse and dry once daily (may change to QOD if drying) 08/19/19 022 Inactive (%covered by insurance) #60ml refill 11 dx: acne benzoyl peroxide 10 % topical cleanser RxNorm: 575021 Apply 1 Application Topical QD apply to face, wash rinse and dry once daily (may change to QOD if drying) 08/19/19 022 Inactive (%covered by insurance) #60ml refill 11 dx: acne Lyrica 50 mg capsule RxNorm: 609615 Take 1 Capsule(s) Oral QAM every morning Take 1 capsule by mouth once daily 08/19/19 22 022 Inactive benzoyl peroxide 10 % topical cleanser RxNorm: 178543 Apply 1 Application Topical QD apply to face, wash rinse and dry once daily (may change to QOD if drying) 08/19/19 22 022 Inactive (%covered by insurance) #60ml refill 11 dx: acne Lyrica 100 mg capsule RxNorm: 750867 Take 1 Capsule(s) Oral QHS every night at bedtime Take 1 capsule by mouth once daily at bedtime 08/19/19 22 Inactive Lyrica 100 mg capsule RxNorm: 562922 Take 1 Capsule(s) Oral QHS every night at bedtime Take 1 capsule by mouth once daily at bedtime 08/16/19 22 022 Inactive Lyrica 50 mg capsule RxNorm: 004563 Take 1 Capsule(s) Oral QAM every morning Take 1 capsule by mouth once daily 08/16/19 22 022 Inactive Levemir FlexTouch U-100 Insulin 100 unit/mL (3 mL) subcutaneous pen RxNorm: 845698 Inject 86 Unit(s) Subcutaneous BID 08/05/19 22 022 Inactive d/c 83units BID Lyrica 100 mg capsule RxNorm: 152744 Take 1 Capsule(s) Oral QHS every night at bedtime Take 1 capsule by mouth once daily at bedtime 07/14/19 22 022 Inactive Lyrica 50 mg capsule RxNorm: 400683 Take 1 Capsule(s) Oral QAM every morning Take 1 capsule by mouth once daily 07/14/19 22 022 Inactive Levemir FlexTouch U-100 Insulin 100 unit/mL (3 mL) subcutaneous pen RxNorm: 950272 Inject 83 Unit(s) Subcutaneous BID 07/08/19 22 [...] 30 mg tablet,extended release 24 hr RxNorm: 066972 Take 1 Tablet(s) Oral QD 05/05/20 21 024 Inactive hydralazine 50 mg tablet RxNorm: 978255 Take 1 Tablet(s) Oral QID 05/05/20 21 022 Inactive venlafaxine ER 225 mg tablet,extended release 24 hr RxNorm: 151410 Take 1 Tablet(s) Oral QD 05/05/20 21 021 Inactive venlafaxine ER 225 mg tablet,extended release 24 hr RxNorm: 146110 Take 1 Tablet(s) Oral QD 05/05/20 21 022 Inactive hydralazine 50 mg tablet RxNorm: 108887 Take 1 Tablet(s) Oral QID 05/05/20 21 021 Inactive aspirin 81 mg tablet,delayed release RxNorm: 647960 Take 1 Tablet(s) Oral QD 03/31/20 21 022 Inactive Zetia 10 mg tablet RxNorm: 355103 Take 1 Tablet(s) Oral QD 03/31/20 024 Inactive Vitamin D2 1,250 mcg (50,000 unit) capsule RxNorm: 0302449 Take 1 Capsule(s) Oral QW once a week x 12 weeks 03/31/20 022 Inactive Vitamin D2 1,250 mcg (50,000 unit) capsule RxNorm: 2995152 Take 1 Capsule(s) Oral QW once a week 11/ 021 Inactive Zetia 10 mg tablet RxNorm: 256633 Take 1 Tablet(s) Oral QD 03/31/20 021 Inactive hydralazine 25 mg tablet RxNorm: 160482 Take 1 Tablet(s) Oral QID 03/31/20 021 Inactive hydralazine 25 mg tablet RxNorm: 101855 Take 1 Tablet(s) Oral QID 03/31/20 021 Inactive hydralazine 10 mg tablet RxNorm: 941045 Take 1 Tablet(s) Oral QID 03/03/20 021 Inactive cephalexin 500 mg tablet RxNorm: 658464 Take 1 Tablet(s) Oral QID 02/27/20 021 Inactive cephalexin 500 mg tablet RxNorm: 667903 Take 1 Tablet(s) Oral QID 02/27/20 021 Inactive lisinopril 40 mg tablet RxNorm: 730165 Take 1 Tablet(s) Oral QD 02/11/20 023 Inactive Eliquis 5 mg tablet RxNorm: 0489090 Take 1 Tablet(s) Oral BID 01/05/20 022 Inactive Eliquis 5 mg tablet RxNorm: 3924636 Take 2 Tablet(s) Oral QD 01/01/20 21 021 Inactive Lyrica 50 mg capsule RxNorm: 676160 Take 1 Capsule(s) Oral QAM every morning 12/24/19 021 Inactive Lyrica 100 mg capsule RxNorm: 454689 Take 1 Capsule(s) Oral QHS every night at bedtime 12/24/19 021 Inactive clotrimazole 1 % topical cream RxNorm: 967735 Apply to right foot and toes Topical BID 12/04/19 21 023 Inactive metoprolol succinate ER 200 mg tablet,extended release 24 hr RxNorm: 869606 Take 1 Tablet(s) Oral QD 12/04/19 21 023 Inactive ciprofloxacin 500 mg tablet RxNorm: 783868 Take 1 Tablet(s) Oral QD 11/30/19 21 021 Inactive DX ofloxacin otic drops Accu-Chek Guide test strips RxNorm: USE 1 TO CHECK GLUCOSE 4 TIMES DAILY AND NEEDED 11/15/19 21 023 Inactive Blood Glucose Test strips RxNorm: Use 1 Test Strip QID at PRN 11/05/19 21 023 Inactive E11.42 lisinopril 30 mg tablet RxNorm: 340407 Take 1 Tablet(s) Oral QD 10/30/19 021 Inactive lisinopril 20 mg tablet RxNorm: 492463 Take 1 Tablet(s) Oral QD 10/23/19 021 Inactive lisinopril 20 mg tablet RxNorm: 591650 Take 1 Tablet(s) Oral QD 10/23/19 21 021 Inactive lisinopril 10 mg tablet RxNorm: 694359 Take 1 Tablet(s) Oral QD 10/02/19 021 Inactive icosapent ethyl 1 gram capsule RxNorm: 6364992 Take 2 Capsule(s) (2 gm) Oral BID with meals 09/12/19 024 Inactive Okay to dispense one 2gm tab if you have that available. icosapent ethyl 1 gram capsule RxNorm: 5925763 Take 2 Capsule(s) Oral BID 09/12/19 21 021 Inactive Okay to dispense one 2gm tab if you have that available. amlodipine 10 mg tablet RxNorm: 182137 Take 1 Tablet(s) Oral QD 09/04/19 022 Inactive aspirin 81 mg tablet,delayed release RxNorm: 890354 Take 1 Tablet(s) Oral QD 09/04/19 021 Inactive Levemir FlexTouch U-100 Insulin 100 unit/mL (3 mL) subcutaneous pen RxNorm: 896881 Inject 150 Unit(s) Subcutaneous BID 09/04/19 21 022 Inactive venlafaxine ER 150 mg tablet,extended release 24 hr RxNorm: 057564 Take 1 Tablet(s) Oral QD 09/04/19 21 021 Inactive clotrimazole-betame thasone 1 %-0.05 % topical cream RxNorm: 100565 Apply to rash on red area on left abdomen/chest Topical BID 08/10/19 21 Inactive amlodipine 5 mg tablet RxNorm: 949823 Take 1 Tablet(s) Oral QD 07/31/19 21 Inactive cephalexin 500 mg tablet RxNorm: 970111 Take 1 Tablet(s) Oral BID BID - Twice Daily 07/31/19 21 Inactive Start 08/01/20 pantoprazole 40 mg tablet,delayed release RxNorm: 878746 Take 1 Tablet(s) Oral QAM every morning 07/08/19 022 Inactive senna 8.6 mg tablet RxNorm: 166566 Take 1 Tablet(s) Oral QD 07/08/19 Inactive carbamazepine 200 mg tablet RxNorm: 198313 Take 1 Tablet(s) Oral BID 07/08/19 Inactive clopidogrel 75 mg tablet RxNorm: 679908 Take 1 Tablet(s) Oral QD 07/08/19 021 Inactive Blood Glucose Test strips RxNorm: Use 1 Test Strip QID at PRN 07/08/19 Inactive E11.42 Novolog Flexpen U-100 Insulin aspart 100 unit/mL (3 mL) subcutaneous RxNorm: 5783125 Administer per sliding scale Milliliter(s) Subcutaneous TID 151-200: 10 u; 201-250: 20 u; 251-300: 30 u; 301-350: 40 u; 351-400: 50 u. 07/08/19 022 Inactive lisinopril 5 mg tablet RxNorm: 103568 Take 1 Tablet(s) Oral QD 07/08/19 021 Inactive Novolog Flexpen U-100 Insulin aspart 100 unit/mL (3 mL) subcutaneous RxNorm: 0232144 Inject 85 Unit(s) Subcutaneous TID 07/08/19 022 Inactive pravastatin 80 mg tablet RxNorm: 688515 Take 1 Tablet(s) Oral QHS every night at bedtime 07/08/19 023 Inactive clotrimazole 1 % topical cream RxNorm: 910898 Apply to bilateral groin areas Topical BID 07/08/19 022 Inactive metoprolol succinate ER 200 mg tablet,extended release 24 hr RxNorm: 258513 Take 1 Tablet(s) Oral QD 07/08/19 021 Inactive Vitamin D3 25 mcg (1,000 unit) tablet RxNorm: 975272 Take 1 Tablet(s) Oral QD 07/08/19 021 Inactive isosorbide dinitrate 30 mg tablet RxNorm: 284585 Take 1 Tablet(s) Oral QD 07/08/19 021 Inactive Levemir FlexTouch U-100 Insulin 100 unit/mL (3 mL) subcutaneous pen RxNorm: 747212 Inject 140 Unit(s) Subcutaneous BID 07/08/19 021 Inactive torsemide 20 mg tablet RxNorm: 957182 Take 1 Tablet(s) Oral QD 07/08/19 023 Inactive venlafaxine 75 mg tablet RxNorm: 406180 Take 1 Tablet(s) Oral QD 07/08/19 021 Inactive acetaminophen 500 mg tablet RxNorm: 763522 Take 1 Tablet(s) Oral TID as needed for headache 06/18/19 021 Inactive acetaminophen 500 mg tablet RxNorm: 435727 Take 1 Tablet(s) Oral TID as needed for headache 06/18/19 021 Inactive Lyrica 100 mg capsule RxNorm: 885040 Take 1 Capsule(s) Oral QHS every night at bedtime 06/11/19 021 Inactive Lyrica 50 mg capsule RxNorm: 398389 Take 1 Capsule(s) Oral QAM every morning 06/10/19 21 021 Inactive hydrocortisone 2.5 % topical cream RxNorm: 243917 Apply to bilateral groin creases Topical BID 05/15/20 20 021 Inactive clotrimazole 1 % topical cream RxNorm: 085567 Apply to bilateral groin areas Topical BID 05/15/20 20 021 Inactive Lyrica 50 mg capsule RxNorm: 010997 Take 1 Capsule(s) Oral QAM every morning 05/14/20 20 Inactive Lyrica 100 mg capsule RxNorm: 438967 Take 1 Capsule(s) Oral QHS every night [...] Inactive Nystop 100,000 unit/gram topical powder RxNorm: 711822 Apply to abd folds, under breasts and L side of groin Topical BID x 14 days, then BID PRN 04/08/20 20 Inactive dx: yeast dermatitis Lyrica 100 mg capsule RxNorm: 583147 Take 1 Capsule(s) Oral QHS every night at bedtime 03/13/20 20 Inactive Lyrica 50 mg capsule RxNorm: 784894 Take 1 Capsule(s) Oral QAM every morning 03/13/20 20 Inactive ketoconazole 2 % shampoo RxNorm: 950948 Apply Topical two times a week with showers 03/11/20 20 Inactive cholecalciferol (vitamin D3) 50 mcg (2,000 unit) tablet RxNorm: 330123 Take 1 Tablet(s) Oral QD 03/11/20 20 021 Inactive Zetia 10 mg tablet RxNorm: 869828 Take 1 Tablet(s) Oral QD 03/07/20 20 021 Inactive Zetia 10 mg tablet RxNorm: 580018 Take 1 Tablet(s) Oral QD 03/07/20 Inactive Lyrica 50 mg capsule RxNorm: 693299 Take 1 Capsule(s) Oral QAM every morning 02/15/20 20 Inactive Lyrica 100 mg capsule RxNorm: 056318 Take 1 Capsule(s) Oral QHS every night at bedtime 02/15/20 20 Inactive Lyrica 100 mg capsule RxNorm: 410794 Take 1 Capsule(s) Oral QHS every night at bedtime 02/15/20 Inactive Lyrica 50 mg capsule RxNorm: 853488 Take 1 Capsule(s) Oral QAM every morning 02/15/20 Inactive polyethylene glycol 3350 17 gram/dose oral powder RxNorm: 823997 Take 17=1 capful Gram(s) Oral BID as needed mix with 4-8oz of liquid 06/12/19 Inactive metoprolol succinate ER 200 mg tablet,extended release 24 hr RxNorm: 506714 Take 1 Tablet(s) Oral QD 08/11 Activeloperamide 2 mg capsuleRxNorm: 657584Kpzf 1 Capsule(s) Oral QID as needed 06/12/2021ctivehydralazine 50 mg tabletRxNorm: 003122Lsyc 1 Tablet(s) Oral QID 08/11/2022ctivevenlafaxine ER 75 mg capsule,extended release 24 hrRxNorm: 719177Xtdb 3 Capsule(s) Oral QD/Inactiveicosapent ethyl 1 gram capsuleRxNorm: 4960837Zpzn 2 Capsule(s) (2 gm) Oral BID with meals /InactiveOkay to dispense one 2gm tab if you have that available.Levemir FlexTouch U-100 Insulin 100 unit/mL (3 mL) subcutaneous pen RxNorm: 786140Iendlv 80 Unit(s) Subcutaneous BID07/14//Inactive Novolog Flexpen U-100 Insulin aspart 100 unit/mL (3 mL) subcutaneousRxNorm: 2235334Qxlidn 30 Unit(s) Subcutaneous TID with mealsInactive Medication Administered No Medication Administered data Reason For Visit No Reason For Visit data Plan of Care Planned Activity Notes Codes Status Date Referral: [facility] WPtel: [address], [address] [id number] USReferralRecords [id number]/08/2023Referral: [facility] WPtel: [address] [id number]/12/2022Referral: General CardiologyReferralCompleted 1Referral: General PsychologistReferralClosedReferral: General PsychiatristReferralPatient/Family [...] Sister Jyotsna involved in his care cell# [phone] Guardian: Don (tapan met in person 09/01/21), now has Lexii (same group as don)Lab Schedule: *September (CBC with diff, CMP, A1c) (Novemebr: CBC, CMP, A1c, Lipids, VitD) 10/08/2023
--- OUTSIDE RECORDS SUMMARY | 2023-05-05 18:00 | XMS_ITS | CCD ---
Author Name Day Fonseca PA-Cily Address [address] [place] [address] Phone Organization [facility] Phone Care Team Providers Care Agricultural Engineering Technician Name Role Phone Arpit MCKINLEY-CHarrison Primary Care Provider Leona vailable Arpit MCKINLEY-[facility]arrison Chronic Care Management U navailable Summary Purpose DataExchange Insurance Providers Payer name Policy type / Coverage type Covered alliance party ID Effective Begin Date Effective End Date Medicare [place] Medicare Part B [id number] Unknown Unknown Medicaid [place] Medicare Part B [id number] Unknown Unknown Family history Sister Brittany Suggs [...] Unknown Halfway 09/03/[address]: 4837052 Non-Smoker / No History of Smoking 09/02/[address]: 903286895 No Alcohol Consum ption 09/02/2020 Allergies, Adverse Reactions, Alerts Substance Reaction Codes Entered Date Inactivated Date Status LISINOPRIL RxNorm: 7394328No Inactive DateActiveMetformin RCmJomzfho42/28/2020No Inactive DateActive Problems Condition Codes Effective Dates Condition St atus Hypertensive heart disease without heart failure ICD-10: I11.9 ICD-9: 402.9005/04/2023ctiveType 2 diabetes mellitus with diabetic polyneuropathy, with long-term current use of insulinICD-10: E11.42 ICD-9: 250.6012ctiveCoronary artery disease involving [place] coronary artery of [place] heart, angina presence unspecifiedICD-10: I25.10 ICD-9: 414.0111/ctiveOnychogryposisICD-10: L60.2 ICD-9: 703.811/ctiveReducible umbilical herniaICD-10: K42.9 ICD-9: 553.111/ctiveBMI 60.0-69.9, adultICD-10: Z68.44 ICD-9: V85.4410/ctiveCandidal intertrigoICD-10: B37.2 ICD-9: 112.310/ctiveHyperlipidemia associated with type 2 diabetes mellitusICD-10: E11.69 ICD-9: 250.8010/ctiveHyperlipidemia, unspecifiedICD-10: E78.5 ICD-9: 272.410/ctiveStage 2 chronic 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ICD-10: E11.22 ICD-9: 250.4010/ctiveInappropriate sexual behaviorICD-10: Z72.89 ICD-9: 312.8910/ctiveLearning disabilityICD-10: F81.9 ICD-9: 315.210/ctiveMajor depression, recurrentICD-10: F33.9 ICD-9: 296.3010/ctiveOther director of pupil personnel program (current) drug therapyICD-10: Z79.899 ICD-9: V58.6910/ctiveRecurrent major depressive disorder, in partial remissionICD-10: F33.41 ICD-9: 296.3510/ctiveAnnual physical examICD-10: Z00.00 ICD-9: V70.009/ctiveEncounter for other specified special examinations ICD-10: Z01.89 ICD-9: V72.8509/ctiveEncounter for screening for nutritional disorder ICD-10: Z13.21 ICD-9: V77.9909/ctiveHypokalemiaICD-10: E87.6 ICD-9: 276.807/ctiveTinea pedis of both feetICD-10: [...] vascular disease)ICD-10: I73.9 ICD-9: 443.909/2ActiveDepressionICD-10: F32.9 ICD-9: 29479/2ResolvedDVT (deep venous thrombosis)ICD-10: I82.409 ICD-9: 453.4009/2ResolvedEncounter for immunizationICD-10: Z23 ICD-9: V03.8909/2ResolvedLong term (current) use of insulinICD-10: Z79.4 02/10/2022esolvedMuscular painICD-10: M79.10 ICD-9: 729.109esolvedDandruff in adultICD-10: L21.0 ICD-9: 690.1808ctiveHypertension associated with diabetesICD-10: E11.59 ICD-9: 250.80082ResolvedHistory of anemia due to CKDICD-10: N18.9 ICD-9: 585.9072ActiveStage 2 chronic kidney diseaseICD-10: N18.2 ICD-9: 585.2072ActiveGout due to renal impairmentICD-10: M10.30 ICD-9: 274.10062ActiveSkin tagICD-10: L91.8 ICD-9: 701.911ctiveCallus of heelICD-10: L84 ICD-9: 29063/1ActiveImpacted cerumen, left earICD-10: H61.22 ICD-9: 380.408/ctiveContact with [...] Z20.828 ICD-9: V01.7902esolvedHyperhidrosis of palmsICD-10: L74.512 ICD-9: 705.2116023IucwpvNspynchaTrorcag77/28/2020ActiveDiabetes mellitus Type 8Mqqjnqu12/28/2020ActiveAnemia in chronic kidney diseaseICD-10: D63.1 02/12/2020ResolvedHyperlipidemia, unspecifiedICD-10: E78.Resolved Medications Medication Codes Instructions Start Date Stop Date Status Fill Instructions pregabalin 100 mg capsule RxNorm: 250364 Take 1 Capsule(s) Oral QAM every morning 04/27/20 23 024 Inactive Levemir FlexPen 100 unit/mL (3 mL) solution subcutaneous insulin pen RxNorm: 298678 Inject 30 Unit(s) Subcutaneous BID 04/27/20 23 024 Inactive rosuvastatin 40 mg tablet RxNorm: 713347 Take 1 Tablet(s) Oral QPM every evening 04/16/20 23 024 Inactive D/C rosuvastatin 20mg venlafaxine ER 75 mg capsule,extended release 24 hr RxNorm: 860391 Take 3 Capsule(s) Oral QD 04/14/20 23 023 Inactive pregabalin 100 mg capsule RxNorm: 556526 Take 1 Capsule(s) Oral QAM every morning [...] meter clotrimazole 1 % topical cream RxNorm: 437770 Take apply topically to abdominal folds twice daily for 14 days 03/12/20 23 024 Inactive Ozempic 1 mg/dose (4 mg/3 mL) subcutaneous pen injector RxNorm: 6086174 Inject 1 Milligram(s) Subcutaneous QW once a week 10/26/ 023 Inactive rosuvastatin 20 mg tablet RxNorm: 058238 Take 1 Tablet(s) Oral QD 02/26/20 23 023 Inactive d/c pravastatin 80mg Ozempic 1 mg/dose (4 mg/3 mL) subcutaneous pen injector RxNorm: 9245052 Inject 1 Milligram(s) Subcutaneous QW once a week 02/20/20 023 Inactive pregabalin 150 mg capsule RxNorm: 032139 Take 1 Capsule(s) Oral HS at bed time 02/19/20 023 Inactive pregabalin 100 mg capsule RxNorm: 088105 Take 1 Capsule(s) Oral QAM every morning 02/18/20 023 Inactive FreeStyle Chema 2 Sensor kit RxNorm: use as directed 02/04/20 024 Inactive venlafaxine ER 75 mg capsule,extended release 24 hr RxNorm: 910220 Take 3 Capsule(s) Oral QD 02/04/20 023 Inactive FreeStyle Chema 2 Sensor kit RxNorm: use as directed 02/04/20 23 023 Inactive fluconazole 150 mg tablet RxNorm: 181862 Take 1 Tablet(s) Oral on day 3 and on day 6 02/03/20 024 Active chlorthalidone 25 mg tablet RxNorm: 256475 Take 1 Tablet(s) Oral QAM every morning 02/03/20 23 No Stop Date Active venlafaxine ER 150 mg capsule,extended release 24 hr RxNorm: 400661 Take 1 Capsule(s) Oral QD 02/03/20 23 023 Inactive acetaminophen 500 mg tablet RxNorm: 160255 1 TABLET ORALLY 3 TIMES DAILY (MAX APAP:4GM/24HR) 12/15/19 23 023 Inactive potassium chloride ER 20 mEq tablet,extended release RxNorm: 308099 Take 1 Tablet(s) Oral BID 12/09/19 23 024 Inactive d/c 20mEq once daily (sent from hospital) clotrimazole 1 % topical cream RxNorm: 050397 apply 1g topically to top of feet and in between toes BID 12/09/19 23 023 Inactive nystatin 100,000 unit/gram topical powder RxNorm: 681959 APPLY TO AFFECTED AREAS TOPICALLY 2 TIMES DAILY 11/21/19 024 Inactive Nystop 100,000 unit/gram topical powder RxNorm: 348863 Apply to abd folds, under breasts and L side of groin Topical BID x 14 days, then BID PRN 11/20/19 023 Inactive dx: yeast dermatitis [place] Ultra Strength 4 %-30 %-10 % topical cream RxNorm: 414130 Apply 1 Gram(s) Topical QID PRN to feet and legs for neuropathic pain 11/11/19 024 Active hydrocortisone 2.5 % topical cream RxNorm: 941356 Apply 1/2 Gram(s) Topical BID as needed 11/10/19 024 Inactive clotrimazole 1 % topical cream RxNorm: 218022 Apply 1/2 Gram(s) Topical BID Apply to affected areas of groin, periarea, and abdominal topically 2 times daily 11/10/19 023 Inactive Humulin R U-500 (Concentrated) Insulin 500 unit/mL subcutaneous soln RxNorm: 022792 Inject 100 Unit(s) Subcutaneous TID 10/07/19 024 Inactive Ozempic 0.25 mg or 0.5 mg (2 mg/3 mL) subcutaneous pen injector RxNorm: 8341917 Inject 1/2 Milligram(s) Subcutaneous QW once a week 10/07/19 024 Inactive Levemir FlexPen 100 unit/mL (3 mL) solution subcutaneous insulin pen RxNorm: 118328 Inject 30 Unit(s) Subcutaneous BID 10/07/19 023 Inactive aripiprazole 15 mg tablet RxNorm: 671786 1/2 TAB (7.5MG) ORALLY DAILY (DX:MAJOR DEPRESSIVE DISORDER) 09/23/19 023 Inactive Lancets,Thin 28 gauge RxNorm: Use 1 as directed QID 09/15/19 23 024 Inactive Accu-Chek Guide test strips RxNorm: Use 1 Test Strip QID 09/15/19 23 023 Inactive ok to substitute with any covered alternative test strip torsemide 20 mg tablet RxNorm: 502946 Take 1 Tablet(s) Oral BID 09/09/19 23 024 Inactive d/c once daily dosing carvedilol 25 mg tablet RxNorm: 670141 Take 1 Tablet(s) Oral QD 08/25/19 23 024 Inactive pregabalin 150 mg capsule RxNorm: 647417 1 Capsule(s) Oral HS at bed time 08/18/19 23 023 Inactive pregabalin 100 mg capsule RxNorm: 064088 1 Capsule(s) Oral QAM every morning 08/18/19 23 023 Inactive carvedilol 25 mg tablet RxNorm: 955426 1 Tablet(s) Oral QD 07/28/19 23 023 Inactive lisinopril 20 mg tablet RxNorm: 029209 Give 1 Tablet(s) Oral QD 07/28/19 23 023 Inactive Lyrica 150 mg capsule RxNorm: 112507 Take 1 Capsule(s) Oral QHS every night at bedtime 07/19/19 023 Inactive d/c 100mg dose Diflucan 150 mg tablet RxNorm: 433499 Take 1 Tablet(s) Oral QD repeat on day 3 and 6 07/19/19 23 023 Inactive pregabalin 100 mg capsule RxNorm: 642643 Take 1 Capsule(s) Oral QAM every morning 07/19/19 23 023 Inactive gatifloxacin 0.5 % eye drops RxNorm: 246133 Instill 1 Drop(s) as directed TID Instill 1 drop in to affected eye(s) starting 1 day prior to surgery and continue until gone (do not exceed 4 weeks). 07/13/19 23 023 Inactive carvedilol 25 mg tablet RxNorm: 122433 2 Tablet(s) Oral BID 07/13/19 023 Inactive Humulin R Regular U-100 Insulin 100 unit/mL injection solution RxNorm: 436522 85 Unit(s) Injection TID 07/13/19 23 023 Inactive ketorolac 0.5 % eye drops RxNorm: 227657 Instill 1 Drop(s) as directed QID Instill 1 drop into affected eye(s) 4 times daily starting 1 day prior to surgery and continue until gone (do not exceed 4 weeks). 07/13/19 23 023 Inactive Diflucan 150 mg tablet RxNorm: 095501 Take 1 Tablet(s) Oral QD repeat on day 3 and 6 06/30/19 23 023 Inactive Accu-Chek Guide test strips RxNorm: Use 1 Test Strip QID Use 1 test strip to monitor blood glucose 4 times daily and as needed. Dx:E11.42. 06/23/19 23 023 Inactive ok to substitute with any covered alternative test strip dextromethorphan-gu aifenesin 10 mg-100 mg/5 mL oral liquid RxNorm: 013805 Take 10 Milliliter(s) Oral every 4 hours as needed for cough 06/19/19 023 Inactive dextromethorphan-gu aifenesin 10 mg-100 mg/5 mL oral liquid RxNorm: 592198 Take 10 Milliliter(s) Oral every 4 hours as needed for cough 06/19/19 23 023 Inactive Lyrica 150 mg capsule RxNorm: 963971 Take 1 Capsule(s) Oral QHS every night at bedtime 06/18/19 23 023 Inactive d/c 100mg dose aripiprazole 15 mg tablet RxNorm: 837945 1/2 TAB (7.5MG) ORALLY DAILY (DX:MAJOR DEPRESSIVE DISORDER) 06/05/19 23 023 Inactive pregabalin 100 mg capsule RxNorm: 697469 1 Capsule(s) Oral QAM every morning 06/02/19 23 023 Inactive Banophen 50 mg capsule RxNorm: 3336001 Take 1 Capsule(s) Oral Q6H every 6 hours as needed 05/19/19 23 No Stop Date Active Novolog Flexpen U-100 Insulin aspart 100 unit/mL (3 mL) subcutaneous RxNorm: 7975468 Inject 10 Unit(s) Subcutaneous QHS every night at bedtime with nighttime snack 04/08/20 22 022 Inactive Novolog Flexpen U-100 Insulin aspart 100 unit/mL (3 mL) subcutaneous RxNorm: 1145956 Inject 42 Unit(s) Subcutaneous TID in addition to sliding scale 04/08/20 022 Inactive d/c 36u albuterol sulfate HFA 90 mcg/actuation aerosol inhaler RxNorm: 6510521 Take 2 Puff(s) Inhalation Q4H every four hours as needed as needed for SOB, cough, or wheezing 04/07/20 030 Active Banophen 50 mg capsule RxNorm: 3878899 Take 1 Capsule(s) Oral Q6H every 6 hours as needed 04/06/20 023 Inactive diphenhydramine 50 mg tablet RxNorm: 6720637 Take 1 Tablet(s) Oral Q6H every 6 hours as needed 04/06/20 022 Inactive diphenhydramine 50 mg tablet RxNorm: 8336957 1 Tablet(s) Oral Q6H every 6 hours as needed 04/06/20 022 Inactive Abilify 15 mg tablet RxNorm: 639555 1/2 Tablet(s) Oral QD 03/10/20 023 Inactive Shingrix (PF) 50 mcg/0.5 mL intramuscular suspension, kit RxNorm: 1135425 Administer 1/2 Milliliter(s) Intramuscular QD one time shingrix step 2 ( step 1 given 11/04/21) WITH needle - Nursing please administer upon arrival and once administered post a bridge message with date of administration, returning officer, expiration date, and lot# so we can update [facility] 02/18/20 22 022 Inactive dispense with needle Shingrix (PF) 50 mcg/0.5 mL intramuscular suspension, kit RxNorm: 4264073 Administer 1/2 Milliliter(s) Intramuscular QD one time shingrix step 2 ( step 1 given 11/04/21) WITH needle - Nursing please administer upon arrival and once administered post a bridge message with date of administration, returning officer, expiration date, and lot# so we can update [facility] 02/18/20 22 022 Inactive dispense with needle polyethylene glycol 3350 17 gram/dose oral powder RxNorm: 553982 Take 17=1 capful Gram(s) Oral QD mix with 4-8oz of liquid 01/08/20 22 023 Inactive take this in addition to BID prn order Lyrica 100 mg capsule RxNorm: 446511 Take 1 Capsule(s) Oral QAM every morning 01/08/20 22 022 Inactive d/c 50mg dose acetaminophen 500 mg tablet RxNorm: 885713 Take 1 Tablet(s) Oral TID 01/08/20 22 022 Inactive d/c PRN order Lyrica 150 mg capsule RxNorm: 232820 Take 1 Capsule(s) Oral QHS every night at bedtime 01/08/20 22 023 Inactive d/c 100mg dose Abilify 5 mg tablet RxNorm: 774766 Take 1 Tablet(s) Oral QD take 1 tab po QD #30 refill 5 dx: MDD 12/12/19 22 022 Inactive Abilify 5 mg tablet RxNorm: 905955 Take 1 Tablet(s) Oral QD take 1 tab po QD #30 refill 5 dx: MDD 12/12/19 22 022 Inactive Novolog Flexpen U-100 Insulin aspart 100 unit/mL (3 mL) subcutaneous RxNorm: 1983037 Inject 42 Unit(s) Subcutaneous TID in addition to sliding scale 12/10/19 22 022 Inactive d/c 36u chlorthalidone 25 mg tablet RxNorm: 306854 Take 1 Tablet(s) Oral QAM every morning 12/10/19 22 023 Inactive pregabalin 50 mg capsule RxNorm: 386881 Take 1 Capsule(s) Oral QAM every morning 11/12/19 22 022 Inactive tetanus-diphtheria toxoids-Td 2 Lf unit-2 Lf unit/0.5 mL IM suspension RxNorm: 139 Take 0.5 Miscellaneous Intramuscular 11/12/19 22 022 Inactive need tdap - nursing to administer upon arrival pregabalin 50 mg capsule RxNorm: 801961 Take 1 Capsule(s) Oral QAM every morning 10/16/19 22 022 Inactive pregabalin 50 mg capsule RxNorm: 792850 Take 1 Capsule(s) Oral QAM every morning 10/16/19 22 022 Inactive pregabalin 50 mg capsule RxNorm: 932543 1 Capsule(s) Oral QAM every morning 10/15/19 22 022 Inactive Shingrix (PF) 50 mcg/0.5 mL intramuscular suspension, kit RxNorm: 3664144 Administer 1/2 Milliliter(s) Intramuscular one time Nursing please administer upon arrival and once administered post a bridge message with date of administration, returning officer, expiration date, and lot# so we can update [facility]IC. 10/09/19 22 022 Inactive shingrix step 1 Shingrix (PF) 50 mcg/0.5 mL intramuscular suspension, kit RxNorm: 1454184 Administer 1/2 Milliliter(s) Intramuscular one time Nursing please administer upon arrival and once administered post a bridge message with date of administration, returning officer, expiration date, and lot# so we can update [facility]. 10/09/19 22 022 Inactive shingrix step 1 cholecalciferol (vitamin D3) 1,250 mcg (50,000 unit) capsule RxNorm: 134042 Take 1 Capsule(s) Oral QW once a [...] aspart 100 unit/mL (3 mL) subcutaneous RxNorm: 4714171 Inject 10 Unit(s) Subcutaneous QHS every night at bedtime with nighttime snack 10/08/19 22 022 Inactive Shingrix (PF) 50 mcg/0.5 mL intramuscular suspension, kit RxNorm: 1477114 ADMINISTER 2-DOSE SERIES PER CDC GUIDELINES 10/08/19 22 022 Active Shingrix (PF) 50 mcg/0.5 mL intramuscular suspension, kit RxNorm: 6045934 ADMINISTER 2-DOSE SERIES PER CDC GUIDELINES 10/08/19 22 Inactive Novolog Flexpen U-100 Insulin aspart 100 unit/mL (3 mL) subcutaneous RxNorm: 3688649 Inject 36 Unit(s) Subcutaneous TID in addition to sliding scale 10/08/19 Inactive Novofine Autocover 30 gauge x 1/3 needle RxNorm: Use 1 Miscellaneous UD as directed Use 1 needle as directed to administer insulin 5 times a day Dx:E11.42. 10/03/19 Inactive ok to substitute with any covered alternative pen needle benzoyl peroxide 10 % topical cleanser RxNorm: 250577 Apply 1 Application Topical QD apply to face, wash rinse and dry once daily (may change to QOD if drying) 08/19/19 Inactive (%covered by insurance) #60ml refill 11 dx: acne benzoyl peroxide 10 % topical cleanser RxNorm: 045279 Apply 1 Application Topical QD apply to face, wash rinse and dry once daily (may change to QOD if drying) 08/19/19 022 Inactive (%covered by insurance) #60ml refill 11 dx: acne benzoyl peroxide 10 % topical cleanser RxNorm: 250130 Apply 1 Application Topical QD apply to face, wash rinse and dry once daily (may change to QOD if drying) 08/19/19 22 022 Inactive (%covered by insurance) #60ml refill 11 dx: acne Lyrica 50 mg capsule RxNorm: 745271 Take 1 Capsule(s) Oral QAM every morning Take 1 capsule by mouth once daily 08/19/19 22 022 Inactive benzoyl peroxide 10 % topical cleanser RxNorm: 210666 Apply 1 Application Topical QD apply to face, wash rinse and dry once daily (may change to QOD if drying) 08/19/19 22 022 Inactive (%covered by insurance) #60ml refill 11 dx: acne Lyrica 100 mg capsule RxNorm: 154009 Take 1 Capsule(s) Oral QHS every night at bedtime Take 1 capsule by mouth once daily at bedtime 08/19/19 22 022 Inactive Lyrica 100 mg capsule RxNorm: 037472 Take 1 Capsule(s) Oral QHS every night at bedtime Take 1 capsule by mouth once daily at bedtime 08/16/19 22 022 Inactive Lyrica 50 mg capsule RxNorm: 994870 Take 1 Capsule(s) Oral QAM every morning Take 1 capsule by mouth once daily 08/16/19 22 022 Inactive Levemir FlexTouch U-100 Insulin 100 unit/mL (3 mL) subcutaneous pen RxNorm: 363491 Inject 86 Unit(s) Subcutaneous BID 08/05/19 22 022 Inactive d/c 83units BID Lyrica 100 mg capsule RxNorm: 117790 Take 1 Capsule(s) Oral QHS every night at bedtime Take 1 capsule by mouth once daily at bedtime 07/14/19 22 022 Inactive Lyrica 50 mg capsule RxNorm: 932744 Take 1 Capsule(s) Oral QAM every morning Take 1 capsule by mouth once daily 07/14/19 22 022 Inactive Levemir FlexTouch U-100 Insulin 100 unit/mL (3 mL) subcutaneous pen RxNorm: 523829 Inject 83 Unit(s) Subcutaneous BID 07/08/19 22 [...] 30 mg tablet,extended release 24 hr RxNorm: 539444 Take 1 Tablet(s) Oral QD 05/05/20 21 024 Inactive hydralazine 50 mg tablet RxNorm: 694633 Take 1 Tablet(s) Oral QID 05/05/20 21 022 Inactive venlafaxine ER 225 mg tablet,extended release 24 hr RxNorm: 292375 Take 1 Tablet(s) Oral QD 05/05/20 21 021 Inactive venlafaxine ER 225 mg tablet,extended release 24 hr RxNorm: 433834 Take 1 Tablet(s) Oral QD 05/05/20 21 022 Inactive hydralazine 50 mg tablet RxNorm: 017940 Take 1 Tablet(s) Oral QID 05/05/20 21 021 Inactive aspirin 81 mg tablet,delayed release RxNorm: 151495 Take 1 Tablet(s) Oral QD 03/31/20 21 022 Inactive Zetia 10 mg tablet RxNorm: 365972 Take 1 Tablet(s) Oral QD 03/31/20 21 024 Inactive Vitamin D2 1,250 mcg (50,000 unit) capsule RxNorm: 7775474 Take 1 Capsule(s) Oral QW once a week x 12 weeks 03/31/20 022 Inactive Vitamin D2 1,250 mcg (50,000 unit) capsule RxNorm: 9982255 Take 1 Capsule(s) Oral QW once a week 03/31/20 Inactive Zetia 10 mg tablet RxNorm: 042023 Take 1 Tablet(s) Oral QD 03/31/20 Inactive hydralazine 25 mg tablet RxNorm: 688587 Take 1 Tablet(s) Oral QID 03/31/20 021 Inactive hydralazine 25 mg tablet RxNorm: 960506 Take 1 Tablet(s) Oral QID 03/31/20 Inactive hydralazine 10 mg tablet RxNorm: 748130 Take 1 Tablet(s) Oral QID 03/03/20 021 Inactive cephalexin 500 mg tablet RxNorm: 941148 Take 1 Tablet(s) Oral QID 02/27/20 021 Inactive cephalexin 500 mg tablet RxNorm: 546353 Take 1 Tablet(s) Oral QID 02/27/20 021 Inactive lisinopril 40 mg tablet RxNorm: 081530 Take 1 Tablet(s) Oral QD 02/11/20 023 Inactive Eliquis 5 mg tablet RxNorm: 2346529 Take 1 Tablet(s) Oral BID 01/05/20 022 Inactive Eliquis 5 mg tablet RxNorm: 3090767 Take 2 Tablet(s) Oral QD 01/01/20 21 021 Inactive Lyrica 50 mg capsule RxNorm: 852977 Take 1 Capsule(s) Oral QAM every morning 12/24/19 21 021 Inactive Lyrica 100 mg capsule RxNorm: 654446 Take 1 Capsule(s) Oral QHS every night at bedtime 12/24/19 21 021 Inactive clotrimazole 1 % topical cream RxNorm: 753400 Apply to right foot and toes Topical BID 12/04/19 21 023 Inactive metoprolol succinate ER 200 mg tablet,extended release 24 hr RxNorm: 464520 Take 1 Tablet(s) Oral QD 12/04/19 023 Inactive ciprofloxacin 500 mg tablet RxNorm: 019787 Take 1 Tablet(s) Oral QD 11/30/19 21 021 Inactive DX ofloxacin otic drops Accu-Chek Guide test strips RxNorm: USE 1 TO CHECK GLUCOSE 4 TIMES DAILY AND NEEDED 11/15/19 21 023 Inactive Blood Glucose Test strips RxNorm: Use 1 Test Strip QID at PRN 11/05/19 21 023 Inactive E11.42 lisinopril 30 mg tablet RxNorm: 651499 Take 1 Tablet(s) Oral QD 10/30/19 21 021 Inactive lisinopril 20 mg tablet RxNorm: 818860 Take 1 Tablet(s) Oral QD 10/23/19 021 Inactive lisinopril 20 mg tablet RxNorm: 820709 Take 1 Tablet(s) Oral QD 10/23/19 021 Inactive lisinopril 10 mg tablet RxNorm: 506651 Take 1 Tablet(s) Oral QD 10/02/19 021 Inactive icosapent ethyl 1 gram capsule RxNorm: 6870074 Take 2 Capsule(s) (2 gm) Oral BID with meals 09/12/19 024 Inactive Okay to dispense one 2gm tab if you have that available. icosapent ethyl 1 gram capsule RxNorm: 4877240 Take 2 Capsule(s) Oral BID 09/12/19 21 021 Inactive Okay to dispense one 2gm tab if you have that available. amlodipine 10 mg tablet RxNorm: 743653 Take 1 Tablet(s) Oral QD 09/04/19 21 022 Inactive aspirin 81 mg tablet,delayed release RxNorm: 638108 Take 1 Tablet(s) Oral QD 09/04/19 21 021 Inactive Levemir FlexTouch U-100 Insulin 100 unit/mL (3 mL) subcutaneous pen RxNorm: 766235 Inject 150 Unit(s) Subcutaneous BID 09/04/19 21 022 Inactive venlafaxine ER 150 mg tablet,extended release 24 hr RxNorm: 217191 Take 1 Tablet(s) Oral QD 09/04/19 Inactive clotrimazole-betame thasone 1 %-0.05 % topical cream RxNorm: 685295 Apply to rash on red area on left abdomen/chest Topical BID 08/10/19 21 Inactive amlodipine 5 mg tablet RxNorm: 290593 Take 1 Tablet(s) Oral QD 07/31/19 Inactive cephalexin 500 mg tablet RxNorm: 379259 Take 1 Tablet(s) Oral BID BID - Twice Daily 07/31/19 Inactive Start 08/01/20 pantoprazole 40 mg tablet,delayed release RxNorm: 350523 Take 1 Tablet(s) Oral QAM every morning 07/08/19 Inactive senna 8.6 mg tablet RxNorm: 397156 Take 1 Tablet(s) Oral QD 07/08/19 Inactive carbamazepine 200 mg tablet RxNorm: 575315 Take 1 Tablet(s) Oral BID 07/08/19 Inactive clopidogrel 75 mg tablet RxNorm: 947657 Take 1 Tablet(s) Oral QD 07/08/19 Inactive Blood Glucose Test strips RxNorm: Use 1 Test Strip QID at PRN 07/08/19 Inactive E11.42 Novolog Flexpen U-100 Insulin aspart 100 unit/mL (3 mL) subcutaneous RxNorm: 2308756 Administer per sliding scale Milliliter(s) Subcutaneous TID 151-200: 10 u; 201-250: 20 u; 251-300: 30 u; 301-350: 40 u; 351-400: 50 u. 07/08/19 Inactive lisinopril 5 mg tablet RxNorm: 428810 Take 1 Tablet(s) Oral QD 07/08/19 Inactive Novolog Flexpen U-100 Insulin aspart 100 unit/mL (3 mL) subcutaneous RxNorm: 8704070 Inject 85 Unit(s) Subcutaneous TID 07/08/19 Inactive pravastatin 80 mg tablet RxNorm: 185185 Take 1 Tablet(s) Oral QHS every night at bedtime 07/08/19 023 Inactive clotrimazole 1 % topical cream RxNorm: 135859 Apply to bilateral groin areas Topical BID 07/08/19 022 Inactive metoprolol succinate ER 200 mg tablet,extended release 24 hr RxNorm: 308192 Take 1 Tablet(s) Oral QD 07/08/19 021 Inactive Vitamin D3 25 mcg (1,000 unit) tablet RxNorm: 193527 Take 1 Tablet(s) Oral QD 07/08/19 021 Inactive isosorbide dinitrate 30 mg tablet RxNorm: 771842 Take 1 Tablet(s) Oral QD 07/08/19 021 Inactive Levemir FlexTouch U-100 Insulin 100 unit/mL (3 mL) subcutaneous pen RxNorm: 719532 Inject 140 Unit(s) Subcutaneous BID 07/08/19 021 Inactive torsemide 20 mg tablet RxNorm: 667989 Take 1 Tablet(s) Oral QD 07/08/19 023 Inactive venlafaxine 75 mg tablet RxNorm: 409508 Take 1 Tablet(s) Oral QD 07/08/19 021 Inactive acetaminophen 500 mg tablet RxNorm: 718865 Take 1 Tablet(s) Oral TID as needed for headache 06/18/19 021 Inactive acetaminophen 500 mg tablet RxNorm: 525550 Take 1 Tablet(s) Oral TID as needed for headache 06/18/19 021 Inactive Lyrica 100 mg capsule RxNorm: 836758 Take 1 Capsule(s) Oral QHS every night at bedtime 06/11/19 021 Inactive Lyrica 50 mg capsule RxNorm: 245662 Take 1 Capsule(s) Oral QAM every morning 06/10/19 21 021 Inactive hydrocortisone 2.5 % topical cream RxNorm: 599812 Apply to bilateral groin creases Topical BID 05/15/20 20 021 Inactive clotrimazole 1 % topical cream RxNorm: 037820 Apply to bilateral groin areas Topical BID 05/15/20 20 Inactive Lyrica 50 mg capsule RxNorm: 146036 Take 1 Capsule(s) Oral QAM every morning 05/14/20 20 Inactive Lyrica 100 mg capsule RxNorm: 366283 Take 1 Capsule(s) Oral QHS every night [...] Inactive Nystop 100,000 unit/gram topical powder RxNorm: 214860 Apply to abd folds, under breasts and L side of groin Topical BID x 14 days, then BID PRN 04/08/20 20 Inactive dx: yeast dermatitis Lyrica 100 mg capsule RxNorm: 021032 Take 1 Capsule(s) Oral QHS every night at bedtime 03/13/20 20 Inactive Lyrica 50 mg capsule RxNorm: 411481 Take 1 Capsule(s) Oral QAM every morning 03/13/20 20 Inactive ketoconazole 2 % shampoo RxNorm: 951611 Apply Topical two times a week with showers 03/11/20 20 024 Inactive cholecalciferol (vitamin D3) 50 mcg (2,000 unit) tablet RxNorm: 550697 Take 1 Tablet(s) Oral QD 03/11/20 20 Inactive Zetia 10 mg tablet RxNorm: 369318 Take 1 Tablet(s) Oral QD 03/07/20 20 021 Inactive Zetia 10 mg tablet RxNorm: 057066 Take 1 Tablet(s) Oral QD 03/07/20 20 Inactive Lyrica 50 mg capsule RxNorm: 025980 Take 1 Capsule(s) Oral QAM every morning 02/15/20 20 Inactive Lyrica 100 mg capsule RxNorm: 553706 Take 1 Capsule(s) Oral QHS every night at bedtime 02/15/20 20 Inactive Lyrica 100 mg capsule RxNorm: 161151 Take 1 Capsule(s) Oral QHS every night at bedtime 02/15/20 20 Inactive Lyrica 50 mg capsule RxNorm: 647712 Take 1 Capsule(s) Oral QAM every morning 02/15/20 Inactive polyethylene glycol 3350 17 gram/dose oral powder RxNorm: 227254 Take 17=1 capful Gram(s) Oral BID as needed mix with 4-8oz of liquid 06/12/19 024 Inactive metoprolol succinate ER 200 mg tablet,extended release 24 hr RxNorm: 205479 Take 1 Tablet(s) Oral QD 08/11 Activeloperamide 2 mg capsuleRxNorm: 335758Ndcz 1 Capsule(s) Oral QID as needed 06/12/2021ctivehydralazine 50 mg tabletRxNorm: 055936Asyo 1 Tablet(s) Oral QID 08/11/2022ctivevenlafaxine ER 75 mg capsule,extended release 24 hrRxNorm: 324796Xxzf 3 Capsule(s) Oral QD06/12//Inactiveicosapent ethyl 1 gram capsuleRxNorm: 9149118Vqcb 2 Capsule(s) (2 gm) Oral BID with meals /InactiveOkay to dispense one 2gm tab if you have that available.Levemir FlexTouch U-100 Insulin 100 unit/mL (3 mL) subcutaneous pen RxNorm: 894005Xvwesd 80 Unit(s) Subcutaneous BID/Inactive Novolog Flexpen U-100 Insulin aspart 100 unit/mL (3 mL) subcutaneousRxNorm: 0809787Exzdni 30 Unit(s) Subcutaneous TID with meals/Inactive Medication Administered No Medication Administered data Procedures Procedure Codes Date SYS BP LESS 140 CPT-4: G8752 05/04/2023 CUI BP LESS 90 CPT-4: G8754 05/04/2023 Vital Signs Date Vital 05/04/2023 Blood Pressure 1: 123/76 Code: 8480-6 BMI: NaN Code: 44501-1 Heart Rate 1: 86 bpm Code: 8867-4 Height: 5'5 Code: 8302-2 Respiratory Rate: 18 bpm Weight: Code: 3141-9 Reason For Visit No Reason For Visit data Encounters Encounter Performer Location Location Address Codes Cristiano e ([id number]) Home or Residence Vi sit Est Pt - Low Level, 30 mins Diagnosis: Type 2 diabetes mellitus with diabetic polyneuropathy, with long-term current use of insulin[ICD10: E11.42] Diagnosis: Hypertensive heart disease without heart failure[ICD10: I11.9]Chelo [place] on [id number] [place] [id number]-9: [id number] 05/04/2023 Plan of Care Planned Activity Notes Codes Status Date Appointment: Sandra Clark WPtel: [address] [facility] [address] [id number] [facility]/2022ppointment: Tapan Shirley WPtel: [address] [facility] 300 [id number] USTC10/26/2022Referral: [facility] Nathan WPtel: [address], [address] [id number] USReferralRecords Coknnkey59/08/2023ppointment: Tapan Shirley WPtel: [address] [facility] [address] [id number] USF/08/11/2022ppointment: Tapan Shirley WPtel: [address] [facility] [address] [id number] USF/07/14/2022ppointment: Tapan Shirley WPtel: [address] [facility] 300 [id number] USF/2Referral: [facility] WPtel: [address] [facility] [address] [id number] VMIbyxibfuDzavrvbpe30/12/2022Referral: General CardiologyReferralCompleted 1Referral: General PsychologistReferralClosedReferral: General PsychiatristReferralPatient/Family [...] Sister Jyotsna involved in his care cell# [phone] Guardian: Giulia (tapan met in person 09/01/21), now has Lexii (same group as giulia)Lab Schedule: *September (CBC with diff, CMP, A1c) (Novemebr: CBC, CMP, A1c, Lipids, VitD) 10/08/2023 Hypertensive heart disease w [facility] heart failure Cardiology follow up this month. BP log reviewed without concerns. Will continue current regimen Type 2 diabetes mellitus with diabetic polyneuropathy, with long-term current use of insulin Encouraged regular endo follow up. He is reportedly out of Ozempic which was supposed to be given today. Will send refills.??.05/04/2023
--- OUTSIDE RECORDS SUMMARY | 2023-06-14 18:00 | XMS_ITS | CCD ---
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 Glazing Department Supervisor Name Role Phone Arpit [employer] Primary Care Provider Leona vailable [place] [employer] Chronic Care Management U navailable Summary Purpose DataExchange Insurance Providers Payer name Policy type / Coverage type Covered libertarian ID Effective Begin Date Effective End Date [place] [id number] Unknown Unknown [place] Part B [id number] Unknown Unknown Family history Sister Brittany Suggs [...] Mcfp 09/03/[address]: 4653263 Non-Smoker / No History of Smoking 09/02/[address]: 410642289 No Alcohol Consum ption 09/02/2020 Allergies, Adverse Reactions, Alerts Substance Reaction Codes Entered Date Inactivated Date Status LISINOPRIL RxNorm: 5414567No Inactive DateActiveMetformin JXjSuapgjd41/28/2020No Inactive DateActive Problems Condition Codes Effective Dates Condition St atus Constipation by delayed colonic transit ICD-10: K59.01 ICD-9: 564.010/ctiveDiabetic neuropathy associated with type 2 diabetes mellitusICD-10: E11.40 ICD-9: 250.600/ctiveHx of deep venous thrombosisICD-10: Z86.718 ICD-9: V12.51006/15/2023ctiveOnychogryposisICD-10: L60.2 ICD-9: 703.801ctiveType 2 diabetes mellitus with diabetic polyneuropathy, with long-term current use of insulinICD-10: E11.42 ICD-9: 250.6001/ctiveHypertensive heart disease without heart failure ICD-10: I11.9 ICD-9: 402.9012/ctiveCoronary artery disease involving [place] coronary artery of [place] heart, angina presence unspecifiedICD-10: I25.10 ICD-9: 414.0111/ctiveReducible umbilical herniaICD-10: K42.9 ICD-9: 553.111/ctiveBMI 60.0-69.9, adultICD-10: Z68.44 ICD-9: V85.4410/ctiveCandidal intertrigoICD-10: B37.2 ICD-9: 112.310/ctiveHyperlipidemia associated with type 2 diabetes mellitusICD-10: E11.69 ICD-9: 250.8010/ctiveHyperlipidemia, unspecifiedICD-10: E78.5 ICD-9: 272.410/ctiveStage 2 chronic 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ICD-10: E11.22 ICD-9: 250.4010/ctiveInappropriate sexual behaviorICD-10: Z72.89 ICD-9: 312.8910/ctiveLearning disabilityICD-10: F81.9 ICD-9: 315.210/ctiveMajor depression, recurrentICD-10: F33.9 ICD-9: 296.3010/ctiveOther mcc (current) drug therapyICD-10: Z79.899 ICD-9: V58.6910/ctiveRecurrent major depressive disorder, in partial remissionICD-10: F33.41 ICD-9: 296.3510/ctiveAnnual physical examICD-10: Z00.00 ICD-9: V70.009/ctiveEncounter for other specified special examinations ICD-10: Z01.89 ICD-9: V72.8509/ctiveEncounter for screening for nutritional disorder ICD-10: Z13.21 ICD-9: V77.9909/ctiveHypokalemiaICD-10: E87.6 ICD-9: 276.807/ctiveTinea pedis of both feetICD-10: B35.3 ICD-9: 110.407/ctiveParaparesis of both lower limbsICD-10: G82.20 ICD-9: 344.106/ctiveLower extremity edemaICD-10: R60.0 ICD-9: 782.305/ctivePain of right heelICD-10: M79.671 ICD-9: 729.505/ctiveAmputated toe of right footICD-10: S98.131A ICD-9: 895.003/ctivePre-op evaluationICD-10: Z01.818 ICD-9: V72.8403/ctiveSecondary hypertensionICD-10: I15.9 ICD-9: 405.9903/ctiveVitamin D deficiencyICD-10: E55.9 ICD-9: 268.912/ctiveShortness of breathICD-10: R06.02 ICD-9: 786.0511/ctiveSeizure disorderICD-10: G40.909 ICD-9: 345.9011/ctiveCellulitisICD-10: L03.90 ICD-9: 682.910/ctiveHypercoagulable stateICD-10: D68.59 ICD-9: 289.8109/2ActivePVD (peripheral vascular disease)ICD-10: I73.9 ICD-9: 443.909/2ActiveDepressionICD-10: F32.9 ICD-9: 48049/esolvedDVT (deep venous thrombosis)ICD-10: I82.409 ICD-9: 453.4009/2ResolvedEncounter for immunizationICD-10: Z23 ICD-9: V03.8909/2ResolvedLong term (current) use of insulinICD-10: Z79.4 2ResolvedMuscular painICD-10: M79.10 ICD-9: 729.1092ResolvedDandruff in adultICD-10: L21.0 ICD-9: 690.18001/06/2022ctiveHypertension associated with diabetesICD-10: E11.59 ICD-9: 250.80001/06/2022esolvedHistory of anemia due to CKDICD-10: N18.9 ICD-9: 585.907/2ActiveStage 2 chronic kidney diseaseICD-10: N18.2 ICD-9: 585.207ctiveGout due to renal impairmentICD-10: M10.30 ICD-9: 274.10062ActiveSkin tagICD-10: L91.8 ICD-9: 701.911ctiveCallus of heelICD-10: L84 ICD-9: 080751ActiveImpacted cerumen, left earICD-10: H61.22 ICD-9: 380.408/ctiveContact with and (suspected) exposure to covid-19 ICD-10: Z20.822 ICD-9: V01.79081ResolvedOther infective acute otitis externa of left ear ICD-10: H60.392 ICD-9: 380.1008esolvedScrotal skin lesionICD-10: N50.9 ICD-9: 608.9081ResolvedAnemia due to stage 3b chronic kidney diseaseICD- 10: N18.32 ICD-9: 285.21051ResolvedChronic kidney disease, stage 3 unspecifiedICD- 10: N18.3004esolvedContact with and (suspected) exposure to other viral communicable diseasesICD-10: Z20.828 ICD-9: V01.79021ResolvedHyperhidrosis of palmsICD-10: L74.512 ICD-9: 705.4637QdaymvDdpwjezgSqvkfcz31/28/2020ActiveDiabetes mellitus Type 3Dearfot23/28/2020ActiveAnemia in chronic kidney diseaseICD-10: D63.1 02/12/2020ResolvedHyperlipidemia, unspecifiedICD-10: E78.Resolved Medications Medication Codes Instructions Start Date Stop Date Status Fill Instructions bisacodyl 10 mg rectal suppository RxNorm: 153131 Insert one suppository per rectum once daily as needed for constipation 06/15/19 24 024 Inactive bisacodyl 10 mg rectal suppository RxNorm: 831450 Insert one suppository per rectum once daily as needed for constipation 06/15/19 024 Inactive pregabalin 100 mg capsule RxNorm: 590227 Take 1 Capsule(s) Oral QAM every morning 04/27/20 23 024 Inactive Levemir FlexPen 100 unit/mL (3 mL) solution subcutaneous insulin pen RxNorm: 008984 Inject 30 Unit(s) Subcutaneous BID 04/27/20 23 024 Inactive rosuvastatin 40 mg tablet RxNorm: 679559 Take 1 Tablet(s) Oral QPM every evening 04/16/20 23 024 Inactive D/C rosuvastatin 20mg venlafaxine ER 75 mg capsule,extended release 24 hr RxNorm: 027868 Take 3 Capsule(s) Oral QD 04/14/20 23 023 Inactive pregabalin 100 mg capsule RxNorm: 558595 Take 1 Capsule(s) Oral QAM every morning [...] meter clotrimazole 1 % topical cream RxNorm: 805901 Take apply topically to abdominal folds twice daily for 14 days 03/12/20 024 Inactive Ozempic 1 mg/dose (4 mg/3 mL) subcutaneous pen injector RxNorm: 9560647 Inject 1 Milligram(s) Subcutaneous QW once a week 03/11/20 23 023 Inactive rosuvastatin 20 mg tablet RxNorm: 083849 Take 1 Tablet(s) Oral QD 02/26/20 23 023 Inactive d/c pravastatin 80mg Ozempic 1 mg/dose (4 mg/3 mL) subcutaneous pen injector RxNorm: 9903521 Inject 1 Milligram(s) Subcutaneous QW once a week 02/20/20 23 023 Inactive pregabalin 150 mg capsule RxNorm: 490076 Take 1 Capsule(s) Oral HS at bed time 02/19/20 23 023 Inactive pregabalin 100 mg capsule RxNorm: 118853 Take 1 Capsule(s) Oral QAM every morning 02/18/20 23 023 Inactive FreeStyle Chema 2 Sensor kit RxNorm: use as directed 02/04/20 23 024 Inactive venlafaxine ER 75 mg capsule,extended release 24 hr RxNorm: 238220 Take 3 Capsule(s) Oral QD 02/04/20 23 023 Inactive FreeStyle Chema 2 Sensor kit RxNorm: use as directed 02/04/20 23 023 Inactive fluconazole 150 mg tablet RxNorm: 575632 Take 1 Tablet(s) Oral on day 3 and on day 6 02/03/20 23 024 Active chlorthalidone 25 mg tablet RxNorm: 758041 Take 1 Tablet(s) Oral QAM every morning 02/03/20 23 No Stop Date Active venlafaxine ER 150 mg capsule,extended release 24 hr RxNorm: 840767 Take 1 Capsule(s) Oral QD 02/03/20 23 023 Inactive acetaminophen 500 mg tablet RxNorm: 614889 1 TABLET ORALLY 3 TIMES DAILY (MAX APAP:4GM/24HR) 12/15/19 23 023 Inactive potassium chloride ER 20 mEq tablet,extended release RxNorm: 826240 Take 1 Tablet(s) Oral BID 12/09/19 024 Inactive d/c 20mEq once daily (sent from hospital) clotrimazole 1 % topical cream RxNorm: 528816 apply 1g topically to top of feet and in between toes BID 12/09/19 23 023 Inactive nystatin 100,000 unit/gram topical powder RxNorm: 055168 APPLY TO AFFECTED AREAS TOPICALLY 2 TIMES DAILY 11/21/19 23 024 Inactive Nystop 100,000 unit/gram topical powder RxNorm: 268447 Apply to abd folds, under breasts and L side of groin Topical BID x 14 days, then BID PRN 11/20/19 023 Inactive dx: yeast dermatitis [place] Ultra Strength 4 %-30 %-10 % topical cream RxNorm: 363739 Apply 1 Gram(s) Topical QID PRN to feet and legs for neuropathic pain 11/11/19 024 Active hydrocortisone 2.5 % topical cream RxNorm: 541126 Apply 1/2 Gram(s) Topical BID as needed 11/10/19 024 Inactive clotrimazole 1 % topical cream RxNorm: 036900 Apply 1/2 Gram(s) Topical BID Apply to affected areas of groin, periarea, and abdominal topically 2 times daily 11/10/19 023 Inactive Humulin R U-500 (Concentrated) Insulin 500 unit/mL subcutaneous soln RxNorm: 763975 Inject 100 Unit(s) Subcutaneous TID 10/07/19 024 Inactive Ozempic 0.25 mg or 0.5 mg (2 mg/3 mL) subcutaneous pen injector RxNorm: 9138136 Inject 1/2 Milligram(s) Subcutaneous QW once a week 10/07/19 024 Inactive Levemir FlexPen 100 unit/mL (3 mL) solution subcutaneous insulin pen RxNorm: 674239 Inject 30 Unit(s) Subcutaneous BID 10/07/19 23 023 Inactive aripiprazole 15 mg tablet RxNorm: 757110 1/2 TAB (7.5MG) ORALLY DAILY (DX:MAJOR DEPRESSIVE DISORDER) 09/23/19 23 023 Inactive Lancets,Thin 28 gauge RxNorm: Use 1 as directed QID 09/15/19 23 024 Inactive Accu-Chek Guide test strips RxNorm: Use 1 Test Strip QID 09/15/19 23 023 Inactive ok to substitute with any covered alternative test strip torsemide 20 mg tablet RxNorm: 381792 Take 1 Tablet(s) Oral BID 09/09/19 23 024 Inactive d/c once daily dosing carvedilol 25 mg tablet RxNorm: 777130 Take 1 Tablet(s) Oral QD 08/25/19 23 024 Inactive pregabalin 150 mg capsule RxNorm: 777828 1 Capsule(s) Oral HS at bed time 08/18/19 23 023 Inactive pregabalin 100 mg capsule RxNorm: 324599 1 Capsule(s) Oral QAM every morning 08/18/19 23 023 Inactive carvedilol 25 mg tablet RxNorm: 664541 1 Tablet(s) Oral QD 07/28/19 23 023 Inactive lisinopril 20 mg tablet RxNorm: 355265 Give 1 Tablet(s) Oral QD 07/28/19 23 023 Inactive Lyrica 150 mg capsule RxNorm: 412961 Take 1 Capsule(s) Oral QHS every night at bedtime 07/19/19 23 023 Inactive d/c 100mg dose Diflucan 150 mg tablet RxNorm: 650678 Take 1 Tablet(s) Oral QD repeat on day 3 and 6 07/19/19 23 023 Inactive pregabalin 100 mg capsule RxNorm: 110986 Take 1 Capsule(s) Oral QAM every morning 07/19/19 23 023 Inactive gatifloxacin 0.5 % eye drops RxNorm: 988541 Instill 1 Drop(s) as directed TID Instill 1 drop in to affected eye(s) starting 1 day prior to surgery and continue until gone (do not exceed 4 weeks). 07/13/19 23 023 Inactive carvedilol 25 mg tablet RxNorm: 800805 2 Tablet(s) Oral BID 07/13/19 23 023 Inactive Humulin R Regular U-100 Insulin 100 unit/mL injection solution RxNorm: 047181 85 Unit(s) Injection TID 07/13/19 23 023 Inactive ketorolac 0.5 % eye drops RxNorm: 567682 Instill 1 Drop(s) as directed QID Instill 1 drop into affected eye(s) 4 times daily starting 1 day prior to surgery and continue until gone (do not exceed 4 weeks). 07/13/19 23 023 Inactive Diflucan 150 mg tablet RxNorm: 615484 Take 1 Tablet(s) Oral QD repeat on day 3 and 6 06/30/19 23 023 Inactive Accu-Chek Guide test strips RxNorm: Use 1 Test Strip QID Use 1 test strip to monitor blood glucose 4 times daily and as needed. Dx:E11.42. 06/23/19 23 023 Inactive ok to substitute with any covered alternative test strip dextromethorphan-gu aifenesin 10 mg-100 mg/5 mL oral liquid RxNorm: 127840 Take 10 Milliliter(s) Oral every 4 hours as needed for cough 06/19/19 23 023 Inactive dextromethorphan-gu aifenesin 10 mg-100 mg/5 mL oral liquid RxNorm: 107706 Take 10 Milliliter(s) Oral every 4 hours as needed for cough 06/19/19 23 023 Inactive Lyrica 150 mg capsule RxNorm: 511264 Take 1 Capsule(s) Oral QHS every night at bedtime 06/18/19 23 023 Inactive d/c 100mg dose aripiprazole 15 mg tablet RxNorm: 857363 1/2 TAB (7.5MG) ORALLY DAILY (DX:MAJOR DEPRESSIVE DISORDER) 06/05/19 23 023 Inactive pregabalin 100 mg capsule RxNorm: 624233 1 Capsule(s) Oral QAM every morning 06/02/19 23 023 Inactive Banophen 50 mg capsule RxNorm: 5421796 Take 1 Capsule(s) Oral Q6H every 6 hours as needed 01/03/20 23 No Stop Date Active Novolog Flexpen U-100 Insulin aspart 100 unit/mL (3 mL) subcutaneous RxNorm: 6681830 Inject 10 Unit(s) Subcutaneous QHS every night at bedtime with nighttime snack 04/08/20 Inactive Novolog Flexpen U-100 Insulin aspart 100 unit/mL (3 mL) subcutaneous RxNorm: 7860364 Inject 42 Unit(s) Subcutaneous TID in addition to sliding scale 04/08/20 Inactive d/c 36u albuterol sulfate HFA 90 mcg/actuation aerosol inhaler RxNorm: 1360659 Take 2 Puff(s) Inhalation Q4H every four hours as needed as needed for SOB, cough, or wheezing 04/07/20 030 Active Banophen 50 mg capsule RxNorm: 0021746 Take 1 Capsule(s) Oral Q6H every 6 hours as needed 04/06/20 023 Inactive diphenhydramine 50 mg tablet RxNorm: 9817996 Take 1 Tablet(s) Oral Q6H every 6 hours as needed 04/06/20 022 Inactive diphenhydramine 50 mg tablet RxNorm: 8449990 1 Tablet(s) Oral Q6H every 6 hours as needed 04/06/20 022 Inactive Abilify 15 mg tablet RxNorm: 152615 1/2 Tablet(s) Oral QD 03/10/20 023 Inactive Shingrix (PF) 50 mcg/0.5 mL intramuscular suspension, kit RxNorm: 3160141 Administer 1/2 Milliliter(s) Intramuscular QD one time shingrix step 2 ( step 1 given 11/04/21) WITH needle - Nursing please administer upon arrival and once administered post a bridge message with 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 of 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, 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 director, expiration date, and lot# so we can update [facility] 02/18/20 022 Inactive dispense with needle Shingrix (PF) 50 mcg/0.5 mL intramuscular suspension, kit RxNorm: 0728155 Administer 1/2 Milliliter(s) Intramuscular QD one time shingrix step 2 ( step 1 given 11/04/21) WITH needle - Nursing please administer upon arrival and once administered post a bridge message with date of administration, music video director, expiration date, and lot# so we can update [facility] 02/18/20 22 Inactive dispense with needle polyethylene glycol 3350 17 gram/dose oral powder RxNorm: 074693 Take 17=1 capful Gram(s) Oral QD mix with 4-8oz of liquid 01/08/20 22 023 Inactive take this in addition to BID prn order Lyrica 100 mg capsule RxNorm: 509063 Take 1 Capsule(s) Oral QAM every morning 01/08/20 22 022 Inactive d/c 50mg dose acetaminophen 500 mg tablet RxNorm: 735616 Take 1 Tablet(s) Oral TID 01/08/20 22 022 Inactive d/c PRN order Lyrica 150 mg capsule RxNorm: 683013 Take 1 Capsule(s) Oral QHS every night at bedtime 01/08/20 22 023 Inactive d/c 100mg dose Abilify 5 mg tablet RxNorm: 998162 Take 1 Tablet(s) Oral QD take 1 tab po QD #30 refill 5 dx: MDD 12/12/19 22 022 Inactive Abilify 5 mg tablet RxNorm: 327402 Take 1 Tablet(s) Oral QD take 1 tab po QD #30 refill 5 dx: MDD 12/12/19 22 022 Inactive Novolog Flexpen U-100 Insulin aspart 100 unit/mL (3 mL) subcutaneous RxNorm: 6009298 Inject 42 Unit(s) Subcutaneous TID in addition to sliding scale 12/10/19 22 022 Inactive d/c 36u chlorthalidone 25 mg tablet RxNorm: 947026 Take 1 Tablet(s) Oral QAM every morning 12/10/19 22 023 Inactive pregabalin 50 mg capsule RxNorm: 003357 Take 1 Capsule(s) Oral QAM every morning 11/12/19 22 022 Inactive tetanus-diphtheria toxoids-Td 2 Lf unit-2 Lf unit/0.5 mL IM suspension RxNorm: 139 Take 0.5 Miscellaneous Intramuscular 11/12/19 22 022 Inactive need tdap - nursing to administer upon arrival pregabalin 50 mg capsule RxNorm: 679382 Take 1 Capsule(s) Oral QAM every morning 10/16/19 22 022 Inactive pregabalin 50 mg capsule RxNorm: 577244 Take 1 Capsule(s) Oral QAM every morning 10/16/19 22 022 Inactive pregabalin 50 mg capsule RxNorm: 267270 1 Capsule(s) Oral QAM every morning 10/15/19 22 022 Inactive Shingrix (PF) 50 mcg/0.5 mL intramuscular suspension, kit RxNorm: 6766460 Administer 1/2 Milliliter(s) Intramuscular one time Nursing please administer upon arrival and once administered post a bridge message with date of administration, music video director, expiration date, and lot# so we can update [facility]. 10/09/19 22 022 Inactive shingrix step 1 Shingrix (PF) 50 mcg/0.5 mL intramuscular suspension, kit RxNorm: 6347141 Administer 1/2 Milliliter(s) Intramuscular one time Nursing please administer upon arrival and once administered post a bridge message with date of administration, music video director, expiration date, and lot# so we can update [facility]. 10/09/19 22 022 Inactive shingrix step 1 cholecalciferol (vitamin D3) 1,250 mcg (50,000 unit) capsule RxNorm: 564238 Take 1 Capsule(s) Oral QW once a [...] aspart 100 unit/mL (3 mL) subcutaneous RxNorm: 3701430 Inject 10 Unit(s) Subcutaneous QHS every night at bedtime with nighttime snack 10/08/19 22 Inactive Shingrix (PF) 50 mcg/0.5 mL intramuscular suspension, kit RxNorm: 7076302 ADMINISTER 2-DOSE SERIES PER CDC GUIDELINES 10/08/19 22 Active Shingrix (PF) 50 mcg/0.5 mL intramuscular suspension, kit RxNorm: 5737118 ADMINISTER 2-DOSE SERIES PER CDC GUIDELINES 10/08/19 22 Inactive Novolog Flexpen U-100 Insulin aspart 100 unit/mL (3 mL) subcutaneous RxNorm: 9361615 Inject 36 Unit(s) Subcutaneous TID in addition to sliding scale 10/08/19 Inactive Novofine Autocover 30 gauge x 1/3 needle RxNorm: Use 1 Miscellaneous UD as directed Use 1 needle as directed to administer insulin 5 times a day Dx:E11.42. 10/03/19 Inactive ok to substitute with any covered alternative pen needle benzoyl peroxide 10 % topical cleanser RxNorm: 712489 Apply 1 Application Topical QD apply to face, wash rinse and dry once daily (may change to QOD if drying) 08/19/19 022 Inactive (%covered by insurance) #60ml refill 11 dx: acne benzoyl peroxide 10 % topical cleanser RxNorm: 903599 Apply 1 Application Topical QD apply to face, wash rinse and dry once daily (may change to QOD if drying) 08/19/19 22 022 Inactive (%covered by insurance) #60ml refill 11 dx: acne benzoyl peroxide 10 % topical cleanser RxNorm: 516382 Apply 1 Application Topical QD apply to face, wash rinse and dry once daily (may change to QOD if drying) 08/19/19 22 022 Inactive (%covered by insurance) #60ml refill 11 dx: acne Lyrica 50 mg capsule RxNorm: 036924 Take 1 Capsule(s) Oral QAM every morning Take 1 capsule by mouth once daily 08/19/19 22 Inactive benzoyl peroxide 10 % topical cleanser RxNorm: 130314 Apply 1 Application Topical QD apply to face, wash rinse and dry once daily (may change to QOD if drying) 08/19/19 22 Inactive (%covered by insurance) #60ml refill 11 dx: acne Lyrica 100 mg capsule RxNorm: 450263 Take 1 Capsule(s) Oral QHS every night at bedtime Take 1 capsule by mouth once daily at bedtime 08/19/19 22 022 Inactive Lyrica 100 mg capsule RxNorm: 227641 Take 1 Capsule(s) Oral QHS every night at bedtime Take 1 capsule by mouth once daily at bedtime 08/16/19 22 022 Inactive Lyrica 50 mg capsule RxNorm: 223001 Take 1 Capsule(s) Oral QAM every morning Take 1 capsule by mouth once daily 08/16/19 22 022 Inactive Levemir FlexTouch U-100 Insulin 100 unit/mL (3 mL) subcutaneous pen RxNorm: 430778 Inject 86 Unit(s) Subcutaneous BID 08/05/19 22 022 Inactive d/c 83units BID Lyrica 100 mg capsule RxNorm: 046365 Take 1 Capsule(s) Oral QHS every night at bedtime Take 1 capsule by mouth once daily at bedtime 07/14/19 22 022 Inactive Lyrica 50 mg capsule RxNorm: 508795 Take 1 Capsule(s) Oral QAM every morning Take 1 capsule by mouth once daily 07/14/19 22 022 Inactive Levemir FlexTouch U-100 Insulin 100 unit/mL (3 mL) subcutaneous pen RxNorm: 088939 Inject 83 Unit(s) Subcutaneous BID 07/08/19 22 [...] needle as directed to administer insulin. Dx:E11.42. 01/20/ 022 Inactive ok to substitute with any [...] 30 mg tablet,extended release 24 hr RxNorm: 295875 Take 1 Tablet(s) Oral QD 05/05/20 21 024 Inactive hydralazine 50 mg tablet RxNorm: 614658 Take 1 Tablet(s) Oral QID 05/05/20 21 022 Inactive venlafaxine ER 225 mg tablet,extended release 24 hr RxNorm: 191700 Take 1 Tablet(s) Oral QD 05/05/20 21 021 Inactive venlafaxine ER 225 mg tablet,extended release 24 hr RxNorm: 096630 Take 1 Tablet(s) Oral QD 05/05/20 21 022 Inactive hydralazine 50 mg tablet RxNorm: 248305 Take 1 Tablet(s) Oral QID 05/05/20 21 021 Inactive aspirin 81 mg tablet,delayed release RxNorm: 812416 Take 1 Tablet(s) Oral QD 03/31/20 21 022 Inactive Zetia 10 mg tablet RxNorm: 878358 Take 1 Tablet(s) Oral QD 03/31/20 024 Inactive Vitamin D2 1,250 mcg (50,000 unit) capsule RxNorm: 8135163 Take 1 Capsule(s) Oral QW once a week x 12 weeks 03/31/20 022 Inactive Vitamin D2 1,250 mcg (50,000 unit) capsule RxNorm: 7853924 Take 1 Capsule(s) Oral QW once a week 03/31/20 Inactive Zetia 10 mg tablet RxNorm: 331201 Take 1 Tablet(s) Oral QD 03/31/20 Inactive hydralazine 25 mg tablet RxNorm: 377915 Take 1 Tablet(s) Oral QID 03/31/20 021 Inactive hydralazine 25 mg tablet RxNorm: 217051 Take 1 Tablet(s) Oral QID 03/31/20 021 Inactive hydralazine 10 mg tablet RxNorm: 276577 Take 1 Tablet(s) Oral QID 03/03/20 021 Inactive cephalexin 500 mg tablet RxNorm: 637395 Take 1 Tablet(s) Oral QID 02/27/20 021 Inactive cephalexin 500 mg tablet RxNorm: 415051 Take 1 Tablet(s) Oral QID 02/27/20 021 Inactive lisinopril 40 mg tablet RxNorm: 634841 Take 1 Tablet(s) Oral QD 02/11/20 023 Inactive Eliquis 5 mg tablet RxNorm: 3537749 Take 1 Tablet(s) Oral BID 01/05/20 022 Inactive Eliquis 5 mg tablet RxNorm: 6960480 Take 2 Tablet(s) Oral QD 01/01/20 21 021 Inactive Lyrica 50 mg capsule RxNorm: 319263 Take 1 Capsule(s) Oral QAM every morning 12/24/19 021 Inactive Lyrica 100 mg capsule RxNorm: 322429 Take 1 Capsule(s) Oral QHS every night at bedtime 12/24/19 021 Inactive clotrimazole 1 % topical cream RxNorm: 655644 Apply to right foot and toes Topical BID 12/04/19 21 023 Inactive metoprolol succinate ER 200 mg tablet,extended release 24 hr RxNorm: 257613 Take 1 Tablet(s) Oral QD 12/04/19 21 023 Inactive ciprofloxacin 500 mg tablet RxNorm: 548590 Take 1 Tablet(s) Oral QD 11/30/19 21 021 Inactive DX ofloxacin otic drops Accu-Chek Guide test strips RxNorm: USE 1 TO CHECK GLUCOSE 4 TIMES DAILY AND NEEDED 11/15/19 21 023 Inactive Blood Glucose Test strips RxNorm: Use 1 Test Strip QID at PRN 11/05/19 023 Inactive E11.42 lisinopril 30 mg tablet RxNorm: 777639 Take 1 Tablet(s) Oral QD 10/30/19 021 Inactive lisinopril 20 mg tablet RxNorm: 074857 Take 1 Tablet(s) Oral QD 10/23/19 021 Inactive lisinopril 20 mg tablet RxNorm: 803948 Take 1 Tablet(s) Oral QD 10/23/19 021 Inactive lisinopril 10 mg tablet RxNorm: 112928 Take 1 Tablet(s) Oral QD 10/02/19 021 Inactive icosapent ethyl 1 gram capsule RxNorm: 5779385 Take 2 Capsule(s) (2 gm) Oral BID with meals 09/12/19 024 Inactive Okay to dispense one 2gm tab if you have that available. icosapent ethyl 1 gram capsule RxNorm: 5931077 Take 2 Capsule(s) Oral BID 09/12/19 21 021 Inactive Okay to dispense one 2gm tab if you have that available. amlodipine 10 mg tablet RxNorm: 041002 Take 1 Tablet(s) Oral QD 09/04/19 21 022 Inactive aspirin 81 mg tablet,delayed release RxNorm: 617993 Take 1 Tablet(s) Oral QD 09/04/19 21 021 Inactive Levemir FlexTouch U-100 Insulin 100 unit/mL (3 mL) subcutaneous pen RxNorm: 220057 Inject 150 Unit(s) Subcutaneous BID 09/04/19 Inactive venlafaxine ER 150 mg tablet,extended release 24 hr RxNorm: 022615 Take 1 Tablet(s) Oral QD 09/04/19 Inactive clotrimazole-betame thasone 1 %-0.05 % topical cream RxNorm: 731832 Apply to rash on red area on left abdomen/chest Topical BID 08/10/19 21 Inactive amlodipine 5 mg tablet RxNorm: 061667 Take 1 Tablet(s) Oral QD 07/31/19 Inactive cephalexin 500 mg tablet RxNorm: 528365 Take 1 Tablet(s) Oral BID BID - Twice Daily 07/31/19 Inactive Start 08/01/20 pantoprazole 40 mg tablet,delayed release RxNorm: 515236 Take 1 Tablet(s) Oral QAM every morning 07/08/19 022 Inactive senna 8.6 mg tablet RxNorm: 460498 Take 1 Tablet(s) Oral QD 07/08/19 022 Inactive carbamazepine 200 mg tablet RxNorm: 482046 Take 1 Tablet(s) Oral BID 07/08/19 022 Inactive clopidogrel 75 mg tablet RxNorm: 670421 Take 1 Tablet(s) Oral QD 07/08/19 Inactive Blood Glucose Test strips RxNorm: Use 1 Test Strip QID at PRN 07/08/19 Inactive E11.42 Novolog Flexpen U-100 Insulin aspart 100 unit/mL (3 mL) subcutaneous RxNorm: 3520914 Administer per sliding scale Milliliter(s) Subcutaneous TID 151-200: 10 u; 201-250: 20 u; 251-300: 30 u; 301-350: 40 u; 351-400: 50 u. 07/08/19 21 022 Inactive lisinopril 5 mg tablet RxNorm: 022262 Take 1 Tablet(s) Oral QD 07/08/19 021 Inactive Novolog Flexpen U-100 Insulin aspart 100 unit/mL (3 mL) subcutaneous RxNorm: 0221909 Inject 85 Unit(s) Subcutaneous TID 07/08/19 022 Inactive pravastatin 80 mg tablet RxNorm: 441037 Take 1 Tablet(s) Oral QHS every night at bedtime 07/08/19 023 Inactive clotrimazole 1 % topical cream RxNorm: 104758 Apply to bilateral groin areas Topical BID 07/08/19 022 Inactive metoprolol succinate ER 200 mg tablet,extended release 24 hr RxNorm: 318901 Take 1 Tablet(s) Oral QD 07/08/19 021 Inactive Vitamin D3 25 mcg (1,000 unit) tablet RxNorm: 806050 Take 1 Tablet(s) Oral QD 07/08/19 021 Inactive isosorbide dinitrate 30 mg tablet RxNorm: 641366 Take 1 Tablet(s) Oral QD 07/08/19 021 Inactive Levemir FlexTouch U-100 Insulin 100 unit/mL (3 mL) subcutaneous pen RxNorm: 060137 Inject 140 Unit(s) Subcutaneous BID 07/08/19 21 021 Inactive torsemide 20 mg tablet RxNorm: 626970 Take 1 Tablet(s) Oral QD 07/08/19 023 Inactive venlafaxine 75 mg tablet RxNorm: 789467 Take 1 Tablet(s) Oral QD 07/08/19 021 Inactive acetaminophen 500 mg tablet RxNorm: 035648 Take 1 Tablet(s) Oral TID as needed for headache 06/18/19 21 021 Inactive acetaminophen 500 mg tablet RxNorm: 772082 Take 1 Tablet(s) Oral TID as needed for headache 06/18/19 021 Inactive Lyrica 100 mg capsule RxNorm: 270692 Take 1 Capsule(s) Oral QHS every night at bedtime 06/11/19 21 021 Inactive Lyrica 50 mg capsule RxNorm: 214689 Take 1 Capsule(s) Oral QAM every morning 06/10/19 21 Inactive hydrocortisone 2.5 % topical cream RxNorm: 810367 Apply to bilateral groin creases Topical BID 05/15/20 20 Inactive clotrimazole 1 % topical cream RxNorm: 742798 Apply to bilateral groin areas Topical BID 05/15/20 20 021 Inactive Lyrica 50 mg capsule RxNorm: 455937 Take 1 Capsule(s) Oral QAM every morning 05/14/20 20 Inactive Lyrica 100 mg capsule RxNorm: 560454 Take 1 Capsule(s) Oral QHS every night [...] Inactive Nystop 100,000 unit/gram topical powder RxNorm: 347469 Apply to abd folds, under breasts and L side of groin Topical BID x 14 days, then BID PRN 04/08/20 20 020 Inactive dx: yeast dermatitis Lyrica 100 mg capsule RxNorm: 536009 Take 1 Capsule(s) Oral QHS every night at bedtime 03/13/20 20 020 Inactive Lyrica 50 mg capsule RxNorm: 675086 Take 1 Capsule(s) Oral QAM every morning 03/13/20 20 020 Inactive ketoconazole 2 % shampoo RxNorm: 602891 Apply Topical two times a week with showers 03/11/20 Inactive cholecalciferol (vitamin D3) 50 mcg (2,000 unit) tablet RxNorm: 411373 Take 1 Tablet(s) Oral QD 03/11/20 Inactive Zetia 10 mg tablet RxNorm: 514799 Take 1 Tablet(s) Oral QD 03/07/20 20 Inactive Zetia 10 mg tablet RxNorm: 897406 Take 1 Tablet(s) Oral QD 03/07/20 Inactive Lyrica 50 mg capsule RxNorm: 211394 Take 1 Capsule(s) Oral QAM every morning 02/15/20 20 Inactive Lyrica 100 mg capsule RxNorm: 154768 Take 1 Capsule(s) Oral QHS every night at bedtime 02/15/20 20 Inactive Lyrica 100 mg capsule RxNorm: 039052 Take 1 Capsule(s) Oral QHS every night at bedtime 02/15/20 Inactive Lyrica 50 mg capsule RxNorm: 733755 Take 1 Capsule(s) Oral QAM every morning 02/15/20 20 Inactive polyethylene glycol 3350 17 gram/dose oral powder RxNorm: 235853 Take 17=1 capful Gram(s) Oral BID as needed mix with 4-8oz of liquid 06/12/19 Inactive metoprolol succinate ER 200 mg tablet,extended release 24 hr RxNorm: 957911 Take 1 Tablet(s) Oral QD 08/11 Activeloperamide 2 mg capsuleRxNorm: 781694Pigd 1 Capsule(s) Oral QID as needed 06/12/2021ctivehydralazine 50 mg tabletRxNorm: 728806Knzt 1 Tablet(s) Oral QID 08/11/2022ctivevenlafaxine ER 75 mg capsule,extended release 24 hrRxNorm: 921969Zttd 3 Capsule(s) Oral QD/Inactiveicosapent ethyl 1 gram capsuleRxNorm: 6993979Jeif 2 Capsule(s) (2 gm) Oral BID with meals /InactiveOkay to dispense one 2gm tab if you have that available.Levemir FlexTouch U-100 Insulin 100 unit/mL (3 mL) subcutaneous pen RxNorm: 808836Azazkx 80 Unit(s) Subcutaneous BID/Inactive Novolog Flexpen U-100 Insulin aspart 100 unit/mL (3 mL) subcutaneousRxNorm: 0213300Pmijwo 30 Unit(s) Subcutaneous TID with meals/Inactive Medication Administered No Medication Administered data Reason For Visit No Reason For Visit data Plan of Care Planned Activity Notes Codes Status Date Referral: [facility] WPtel: [address] , [address] [id number] USReferralRecords [id number]/08/2023Referral: [facility] WPtel: [address] [id number]/12/2022Referral: General CardiologyReferralCompleted 1Referral: General PsychologistReferralClosedReferral: General PsychiatristReferralPatient/Family [...] Sister Jyotsna involved in his care cell# [phone] Guardian: Don (tapan met in person 09/01/21), now has Lexii (same group as don)Lab Schedule: /September*September (CBC with diff, CMP, A1c) (Novemebr: CBC, CMP, A1c, Lipids, VitD) 10/08/2023
--- OUTSIDE RECORDS SUMMARY | 2023-07-04 18:00 | XMS_ITS | CCD ---
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 Change Lead Name Role Phone [facility] Primary Care Provider Leona vailable [facility] Chronic Care Management U navailable Summary Purpose DataExchange Insurance Providers Payer name Policy type / Coverage type Covered alliance party ID Effective Begin Date Effective End Date [place] [id number] Unknown Unknown [place] Medicare Part B [id number] Unknown Unknown Family history Sister Brittany Suggs [...] [facility] 09/03/19 [address]: 7326977 Non-Smoker / No History of Smoking 09/02/[address]: 846945009 No Alcohol Consum ption 09/02/2020 Allergies, Adverse Reactions, Alerts Substance Reaction Codes Entered Date Inactivated Date Status LISINOPRIL RxNorm: 5107351No Inactive DateActiveMetformin ONuLpbwuwa16/28/2020No Inactive DateActive Problems Condition Codes Effective Dates [...] ICD-10: I11.9 ICD-9: 402.9012/ctiveCoronary artery disease involving moapa coronary artery of moapa heart, angina presence unspecifiedICD-10: I25.10 ICD-9: 414.0111/ctiveReducible umbilical herniaICD-10: K42.9 ICD-9: 553.111/ctiveBMI 60.0-69.9, adultICD-10: Z68.44 ICD-9: V85.4410/ctiveCandidal intertrigoICD-10: B37.2 ICD-9: 112.310/ctiveHyperlipidemia associated with type 2 diabetes mellitusICD-10: E11.69 ICD-9: 250.8010/ctiveHyperlipidemia, unspecifiedICD-10: E78.5 ICD-9: 272.410/ctiveStage 2 chronic 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ICD-10: E11.22 ICD-9: 250.4010/ctiveInappropriate sexual behaviorICD-10: Z72.89 ICD-9: 312.8910/ctiveLearning disabilityICD-10: F81.9 ICD-9: 315.210/ctiveMajor depression, recurrentICD-10: F33.9 ICD-9: 296.3010/ctiveOther senior care (current) drug therapyICD-10: Z79.899 ICD-9: V58.6910/ctiveRecurrent major [...] vascular disease)ICD-10: I73.9 ICD-9: 443.909/2ActiveDepressionICD-10: F32.9 ICD-9: 01640/esolvedDVT (deep venous thrombosis)ICD-10: I82.409 ICD-9: 453.4009/2ResolvedEncounter for immunizationICD-10: Z23 ICD-9: V03.8909/2ResolvedLong term (current) use of insulinICD-10: Z79.4 2ResolvedMuscular painICD-10: M79.10 ICD-9: 729.1092ResolvedDandruff in adultICD-10: L21.0 ICD-9: 690.18001/06/2022ctiveHypertension associated with diabetesICD-10: E11.59 ICD-9: 250.80001/06/2022esolvedHistory of anemia due to CKDICD-10: N18.9 ICD-9: 585.907/2ActiveStage 2 chronic kidney diseaseICD-10: N18.2 ICD-9: 585.207ctiveGout due to renal impairmentICD-10: M10.30 ICD-9: 274.10062ActiveSkin tagICD-10: L91.8 ICD-9: 701.911ctiveCallus of heelICD-10: L84 ICD-9: 055541ActiveImpacted cerumen, left earICD-10: H61.22 ICD-9: 380.408/ctiveContact with [...] Z20.828 ICD-9: V01.79021ResolvedHyperhidrosis of palmsICD-10: L74.512 ICD-9: 705.1246FqwcvyLntqoyatIzatzwv04/28/2020ActiveDiabetes mellitus Type 1Dzllkgk68/28/2020ActiveAnemia in chronic kidney diseaseICD-10: D63.1 02/12/2020ResolvedHyperlipidemia, unspecifiedICD-10: E78.Resolved Medications Medication Codes Instructions Start Date Stop Date Status Fill Instructions pregabalin 150 mg capsule RxNorm: 516735 Take 1 Capsule(s) Oral QHS every night at bedtime 07/05/19 24 024 Inactive pregabalin 150 mg capsule RxNorm: 942117 Take 1 Capsule(s) Oral QHS every night at bedtime 07/05/19 24 024 Active polyethylene glycol 3350 17 gram/dose oral powder RxNorm: 021986 Take 1 Packet Oral QD as needed (1 packet = 17g) mix with 4-8oz of liquid 06/15/19 24 024 Inactive bisacodyl 10 mg rectal suppository RxNorm: 607961 Insert one suppository per rectum once daily as needed for constipation 06/15/19 24 024 Inactive bisacodyl 10 mg rectal suppository RxNorm: 021793 Insert one suppository per rectum once daily as needed for constipation 06/15/19 24 024 Inactive pregabalin 100 mg capsule RxNorm: 920494 Take 1 Capsule(s) Oral QAM every morning 04/27/20 23 024 Inactive Levemir FlexPen 100 unit/mL (3 mL) solution subcutaneous insulin pen RxNorm: 951324 Inject 30 Unit(s) Subcutaneous BID 04/27/20 23 024 Inactive rosuvastatin 40 mg tablet RxNorm: 011500 Take 1 Tablet(s) Oral QPM every evening 04/16/20 23 024 Inactive D/C rosuvastatin 20mg venlafaxine ER 75 mg capsule,extended release 24 hr RxNorm: 596556 Take 3 Capsule(s) Oral QD 04/14/20 23 023 Inactive pregabalin 100 mg capsule RxNorm: 100836 Take 1 Capsule(s) Oral QAM every morning 11/ 023 Inactive Accu-Chek Guide test strips RxNorm: [...] meter clotrimazole 1 % topical cream RxNorm: 747379 Take apply topically to abdominal folds twice daily for 14 days 03/12/20 024 Inactive Ozempic 1 mg/dose (4 mg/3 mL) subcutaneous pen injector RxNorm: 8600456 Inject 1 Milligram(s) Subcutaneous QW once a week 03/11/20 023 Inactive rosuvastatin 20 mg tablet RxNorm: 368460 Take 1 Tablet(s) Oral QD 02/26/20 23 023 Inactive d/c pravastatin 80mg Ozempic 1 mg/dose (4 mg/3 mL) subcutaneous pen injector RxNorm: 8502696 Inject 1 Milligram(s) Subcutaneous QW once a week 02/20/20 23 023 Inactive pregabalin 150 mg capsule RxNorm: 542025 Take 1 Capsule(s) Oral HS at bed time 02/19/20 023 Inactive pregabalin 100 mg capsule RxNorm: 384987 Take 1 Capsule(s) Oral QAM every morning 02/18/20 023 Inactive FreeStyle Chema 2 Sensor kit RxNorm: use as directed 02/04/20 23 024 Inactive venlafaxine ER 75 mg capsule,extended release 24 hr RxNorm: 233714 Take 3 Capsule(s) Oral QD 02/04/20 023 Inactive FreeStyle Chema 2 Sensor kit RxNorm: use as directed 02/04/20 23 023 Inactive fluconazole 150 mg tablet RxNorm: 253886 Take 1 Tablet(s) Oral on day 3 and on day 6 02/03/20 23 024 Active chlorthalidone 25 mg tablet RxNorm: 253055 Take 1 Tablet(s) Oral QAM every morning 02/03/20 No Stop Date Active venlafaxine ER 150 mg capsule,extended release 24 hr RxNorm: 100214 Take 1 Capsule(s) Oral QD 02/03/20 023 Inactive acetaminophen 500 mg tablet RxNorm: 798754 1 TABLET ORALLY 3 TIMES DAILY (MAX APAP:4GM/24HR) 12/15/19 023 Inactive potassium chloride ER 20 mEq tablet,extended release RxNorm: 237313 Take 1 Tablet(s) Oral BID 12/09/19 024 Inactive d/c 20mEq once daily (sent from hospital) clotrimazole 1 % topical cream RxNorm: 001314 apply 1g topically to top of feet and in between toes BID 12/09/19 023 Inactive nystatin 100,000 unit/gram topical powder RxNorm: 496860 APPLY TO AFFECTED AREAS TOPICALLY 2 TIMES DAILY 11/21/19 024 Inactive Nystop 100,000 unit/gram topical powder RxNorm: 102933 Apply to abd folds, under breasts and L side of groin Topical BID x 14 days, then BID PRN 11/20/19 023 Inactive dx: yeast dermatitis [place] Ultra Strength 4 %-30 %-10 % topical cream RxNorm: 117569 Apply 1 Gram(s) Topical QID PRN to feet and legs for neuropathic pain 11/11/19 024 Active hydrocortisone 2.5 % topical cream RxNorm: 671826 Apply 1/2 Gram(s) Topical BID as needed 11/10/19 024 Inactive clotrimazole 1 % topical cream RxNorm: 312658 Apply 1/2 Gram(s) Topical BID Apply to affected areas of groin, periarea, and abdominal topically 2 times daily 11/10/19 23 023 Inactive Humulin R U-500 (Concentrated) Insulin 500 unit/mL subcutaneous soln RxNorm: 101853 Inject 100 Unit(s) Subcutaneous TID 10/07/19 23 024 Inactive Ozempic 0.25 mg or 0.5 mg (2 mg/3 mL) subcutaneous pen injector RxNorm: 0277272 Inject 1/2 Milligram(s) Subcutaneous QW once a week 10/07/19 024 Inactive Levemir FlexPen 100 unit/mL (3 mL) solution subcutaneous insulin pen RxNorm: 166786 Inject 30 Unit(s) Subcutaneous BID 10/07/19 023 Inactive aripiprazole 15 mg tablet RxNorm: 238132 1/2 TAB (7.5MG) ORALLY DAILY (DX:MAJOR DEPRESSIVE DISORDER) 09/23/19 023 Inactive Lancets,Thin 28 gauge RxNorm: Use 1 as directed QID 09/15/19 23 024 Inactive Accu-Chek Guide test strips RxNorm: Use 1 Test Strip QID 09/15/19 023 Inactive ok to substitute with any covered alternative test strip torsemide 20 mg tablet RxNorm: 419202 Take 1 Tablet(s) Oral BID 09/09/19 23 024 Inactive d/c once daily dosing carvedilol 25 mg tablet RxNorm: 763909 Take 1 Tablet(s) Oral QD 08/25/19 23 024 Inactive pregabalin 150 mg capsule RxNorm: 679575 1 Capsule(s) Oral HS at bed time 08/18/19 023 Inactive pregabalin 100 mg capsule RxNorm: 215734 1 Capsule(s) Oral QAM every morning 08/18/19 023 Inactive carvedilol 25 mg tablet RxNorm: 314993 1 Tablet(s) Oral QD 07/28/19 23 023 Inactive lisinopril 20 mg tablet RxNorm: 750197 Give 1 Tablet(s) Oral QD 07/28/19 23 023 Inactive Lyrica 150 mg capsule RxNorm: 779242 Take 1 Capsule(s) Oral QHS every night at bedtime 07/19/19 23 023 Inactive d/c 100mg dose Diflucan 150 mg tablet RxNorm: 620346 Take 1 Tablet(s) Oral QD repeat on day 3 and 6 07/19/19 23 023 Inactive pregabalin 100 mg capsule RxNorm: 889525 Take 1 Capsule(s) Oral QAM every morning 07/19/19 23 023 Inactive gatifloxacin 0.5 % eye drops RxNorm: 777083 Instill 1 Drop(s) as directed TID Instill 1 drop in to affected eye(s) starting 1 day prior to surgery and continue until gone (do not exceed 4 weeks). 07/13/19 23 023 Inactive carvedilol 25 mg tablet RxNorm: 627777 2 Tablet(s) Oral BID 07/13/19 023 Inactive Humulin R Regular U-100 Insulin 100 unit/mL injection solution RxNorm: 248411 85 Unit(s) Injection TID 07/13/19 023 Inactive ketorolac 0.5 % eye drops RxNorm: 235284 Instill 1 Drop(s) as directed QID Instill 1 drop into affected eye(s) 4 times daily starting 1 day prior to surgery and continue until gone (do not exceed 4 weeks). 07/13/19 023 Inactive Diflucan 150 mg tablet RxNorm: 735698 Take 1 Tablet(s) Oral QD repeat on day 3 and 6 06/30/19 023 Inactive Accu-Chek Guide test strips RxNorm: Use 1 Test Strip QID Use 1 test strip to monitor blood glucose 4 times daily and as needed. Dx:E11.42. 06/23/19 23 023 Inactive ok to substitute with any covered alternative test strip dextromethorphan-gu aifenesin 10 mg-100 mg/5 mL oral liquid RxNorm: 535910 Take 10 Milliliter(s) Oral every 4 hours as needed for cough 06/19/19 23 023 Inactive dextromethorphan-gu aifenesin 10 mg-100 mg/5 mL oral liquid RxNorm: 780413 Take 10 Milliliter(s) Oral every 4 hours as needed for cough 06/19/19 23 023 Inactive Lyrica 150 mg capsule RxNorm: 164680 Take 1 Capsule(s) Oral QHS every night at bedtime 06/18/19 023 Inactive d/c 100mg dose aripiprazole 15 mg tablet RxNorm: 408753 /2 TAB (7.5MG) ORALLY DAILY (DX:MAJOR DEPRESSIVE DISORDER) 06/05/19 023 Inactive pregabalin 100 mg capsule RxNorm: 542563 1 Capsule(s) Oral QAM every morning 06/02/19 023 Inactive Banophen 50 mg capsule RxNorm: 2521555 Take 1 Capsule(s) Oral Q6H every 6 hours as needed 05/19/19 No Stop Date Active Novolog Flexpen U-100 Insulin aspart 100 unit/mL (3 mL) subcutaneous RxNorm: 6122218 Inject 10 Unit(s) Subcutaneous QHS every night at bedtime with nighttime snack 04/08/20 022 Inactive Novolog Flexpen U-100 Insulin aspart 100 unit/mL (3 mL) subcutaneous RxNorm: 6305696 Inject 42 Unit(s) Subcutaneous TID in addition to sliding scale 04/08/20 022 Inactive d/c 36u albuterol sulfate HFA 90 mcg/actuation aerosol inhaler RxNorm: 4913844 Take 2 Puff(s) Inhalation Q4H every four hours as needed as needed for SOB, cough, or wheezing 04/07/20 22 030 Active Banophen 50 mg capsule RxNorm: 9212665 Take 1 Capsule(s) Oral Q6H every 6 hours as needed 04/06/20 023 Inactive diphenhydramine 50 mg tablet RxNorm: 9427343 Take 1 Tablet(s) Oral Q6H every 6 hours as needed 04/06/20 22 022 Inactive diphenhydramine 50 mg tablet RxNorm: 3165171 1 Tablet(s) Oral Q6H every 6 hours as needed 04/06/20 022 Inactive Abilify 15 mg tablet RxNorm: 181246 1/2 Tablet(s) Oral QD 03/10/20 22 023 Inactive Shingrix (PF) 50 mcg/0.5 mL intramuscular suspension, kit RxNorm: 8596354 Administer 1/2 Milliliter(s) Intramuscular QD one time shingrix step 2 ( step 1 given 11/04/21) WITH needle - Nursing please administer upon arrival and once administered post a bridge message with date of administration, radiator repairer, expiration date, and lot# so we can update [facility] 02/18/20 22 022 Inactive dispense with needle Shingrix (PF) 50 mcg/0.5 mL intramuscular suspension, kit RxNorm: 4721800 Administer 1/2 Milliliter(s) Intramuscular QD one time shingrix step 2 ( step 1 given 11/04/21) WITH needle - Nursing please administer upon arrival and once administered post a bridge message with date of administration, radiator repairer, expiration date, and lot# so we can update [facility] 02/18/20 22 022 Inactive dispense with needle polyethylene glycol 3350 17 gram/dose oral powder RxNorm: 055974 Take 17=1 capful Gram(s) Oral QD mix with 4-8oz of liquid 01/08/20 22 023 Inactive take this in addition to BID prn order Lyrica 100 mg capsule RxNorm: 032168 Take 1 Capsule(s) Oral QAM every morning 01/08/20 22 022 Inactive d/c 50mg dose acetaminophen 500 mg tablet RxNorm: 960305 Take 1 Tablet(s) Oral TID 01/08/20 22 022 Inactive d/c PRN order Lyrica 150 mg capsule RxNorm: 037968 Take 1 Capsule(s) Oral QHS every night at bedtime 01/08/20 22 023 Inactive d/c 100mg dose Abilify 5 mg tablet RxNorm: 965408 Take 1 Tablet(s) Oral QD take 1 tab po QD #30 refill 5 dx: MDD 12/12/19 22 022 Inactive Abilify 5 mg tablet RxNorm: 347257 Take 1 Tablet(s) Oral QD take 1 tab po QD #30 refill 5 dx: MDD 12/12/19 22 022 Inactive Novolog Flexpen U-100 Insulin aspart 100 unit/mL (3 mL) subcutaneous RxNorm: 4884258 Inject 42 Unit(s) Subcutaneous TID in addition to sliding scale 12/10/19 22 022 Inactive d/c 36u chlorthalidone 25 mg tablet RxNorm: 009302 Take 1 Tablet(s) Oral QAM every morning 12/10/19 22 023 Inactive pregabalin 50 mg capsule RxNorm: 140024 Take 1 Capsule(s) Oral QAM every morning 11/12/19 22 022 Inactive tetanus-diphtheria toxoids-Td 2 Lf unit-2 Lf unit/0.5 mL IM suspension RxNorm: 139 Take 0.5 Miscellaneous Intramuscular 11/12/19 22 022 Inactive need tdap - nursing to administer upon arrival pregabalin 50 mg capsule RxNorm: 416318 Take 1 Capsule(s) Oral QAM every morning 10/16/19 022 Inactive pregabalin 50 mg capsule RxNorm: 477050 Take 1 Capsule(s) Oral QAM every morning 10/16/19 22 022 Inactive pregabalin 50 mg capsule RxNorm: 872897 1 Capsule(s) Oral QAM every morning 10/15/19 22 022 Inactive Shingrix (PF) 50 mcg/0.5 mL intramuscular suspension, kit RxNorm: 3507794 Administer 1/2 Milliliter(s) Intramuscular one time Nursing please administer upon arrival and once administered post a bridge message with date of administration, radiator repairer, expiration date, and lot# so we can update [facility]. 10/09/19 22 022 Inactive shingrix step 1 Shingrix (PF) 50 mcg/0.5 mL intramuscular suspension, kit RxNorm: 9460478 Administer 1/2 Milliliter(s) Intramuscular one time Nursing please administer upon arrival and once administered post a bridge message with date of administration, radiator repairer, expiration date, and lot# so we can update [facility]. 10/09/19 22 022 Inactive shingrix step 1 cholecalciferol (vitamin D3) 1,250 mcg (50,000 unit) capsule RxNorm: 307090 Take 1 Capsule(s) Oral QW once a [...] aspart 100 unit/mL (3 mL) subcutaneous RxNorm: 3322413 Inject 10 Unit(s) Subcutaneous QHS every night at bedtime with nighttime snack 10/08/19 22 Inactive Shingrix (PF) 50 mcg/0.5 mL intramuscular suspension, kit RxNorm: 8324775 ADMINISTER 2-DOSE SERIES PER CDC GUIDELINES 10/08/19 22 Active Shingrix (PF) 50 mcg/0.5 mL intramuscular suspension, kit RxNorm: 6566920 ADMINISTER 2-DOSE SERIES PER CDC GUIDELINES 10/08/19 22 Inactive Novolog Flexpen U-100 Insulin aspart 100 unit/mL (3 mL) subcutaneous RxNorm: 9343530 Inject 36 Unit(s) Subcutaneous TID in addition to sliding scale 10/08/19 22 Inactive Novofine Autocover 30 gauge x 1/3 needle RxNorm: Use 1 Miscellaneous UD as directed Use 1 needle as directed to administer insulin 5 times a day Dx:E11.42. 10/03/19 22 Inactive ok to substitute with any covered alternative pen needle benzoyl peroxide 10 % topical cleanser RxNorm: 967282 Apply 1 Application Topical QD apply to face, wash rinse and dry once daily (may change to QOD if drying) 08/19/19 22 022 Inactive (%covered by insurance) #60ml refill 11 dx: acne benzoyl peroxide 10 % topical cleanser RxNorm: 647873 Apply 1 Application Topical QD apply to face, wash rinse and dry once daily (may change to QOD if drying) 08/19/19 22 022 Inactive (%covered by insurance) #60ml refill 11 dx: acne benzoyl peroxide 10 % topical cleanser RxNorm: 667275 Apply 1 Application Topical QD apply to face, wash rinse and dry once daily (may change to QOD if drying) 08/19/19 22 022 Inactive (%covered by insurance) #60ml refill 11 dx: acne Lyrica 50 mg capsule RxNorm: 978426 Take 1 Capsule(s) Oral QAM every morning Take 1 capsule by mouth once daily 08/19/19 22 022 Inactive benzoyl peroxide 10 % topical cleanser RxNorm: 472772 Apply 1 Application Topical QD apply to face, wash rinse and dry once daily (may change to QOD if drying) 08/19/19 22 022 Inactive (%covered by insurance) #60ml refill 11 dx: acne Lyrica 100 mg capsule RxNorm: 669298 Take 1 Capsule(s) Oral QHS every night at bedtime Take 1 capsule by mouth once daily at bedtime 08/19/19 22 022 Inactive Lyrica 100 mg capsule RxNorm: 177758 Take 1 Capsule(s) Oral QHS every night at bedtime Take 1 capsule by mouth once daily at bedtime 08/16/19 22 022 Inactive Lyrica 50 mg capsule RxNorm: 636658 Take 1 Capsule(s) Oral QAM every morning Take 1 capsule by mouth once daily 08/16/19 22 022 Inactive Levemir FlexTouch U-100 Insulin 100 unit/mL (3 mL) subcutaneous pen RxNorm: 658418 Inject 86 Unit(s) Subcutaneous BID 08/05/19 22 022 Inactive d/c 83units BID Lyrica 100 mg capsule RxNorm: 252749 Take 1 Capsule(s) Oral QHS every night at bedtime Take 1 capsule by mouth once daily at bedtime 07/14/19 22 022 Inactive Lyrica 50 mg capsule RxNorm: 820340 Take 1 Capsule(s) Oral QAM every morning Take 1 capsule by mouth once daily 07/14/19 22 022 Inactive Levemir FlexTouch U-100 Insulin 100 unit/mL (3 mL) subcutaneous pen RxNorm: 157055 Inject 83 Unit(s) Subcutaneous BID 07/08/19 22 [...] 30 mg tablet,extended release 24 hr RxNorm: 291364 Take 1 Tablet(s) Oral QD 05/05/20 21 024 Inactive hydralazine 50 mg tablet RxNorm: 942486 Take 1 Tablet(s) Oral QID 05/05/20 21 022 Inactive venlafaxine ER 225 mg tablet,extended release 24 hr RxNorm: 220236 Take 1 Tablet(s) Oral QD 05/05/20 21 021 Inactive venlafaxine ER 225 mg tablet,extended release 24 hr RxNorm: 321690 Take 1 Tablet(s) Oral QD 05/05/20 21 022 Inactive hydralazine 50 mg tablet RxNorm: 596071 Take 1 Tablet(s) Oral QID 05/05/20 21 021 Inactive aspirin 81 mg tablet,delayed release RxNorm: 468268 Take 1 Tablet(s) Oral QD 03/31/20 21 022 Inactive Zetia 10 mg tablet RxNorm: 612213 Take 1 Tablet(s) Oral QD 03/31/20 024 Inactive Vitamin D2 1,250 mcg (50,000 unit) capsule RxNorm: 2474291 Take 1 Capsule(s) Oral QW once a week x 12 weeks 03/31/20 022 Inactive Vitamin D2 1,250 mcg (50,000 unit) capsule RxNorm: 5049805 Take 1 Capsule(s) Oral QW once a week 03/31/20 021 Inactive Zetia 10 mg tablet RxNorm: 028154 Take 1 Tablet(s) Oral QD 03/31/20 021 Inactive hydralazine 25 mg tablet RxNorm: 579209 Take 1 Tablet(s) Oral QID 03/31/20 21 021 Inactive hydralazine 25 mg tablet RxNorm: 004036 Take 1 Tablet(s) Oral QID 03/31/20 021 Inactive hydralazine 10 mg tablet RxNorm: 885053 Take 1 Tablet(s) Oral QID 03/03/20 21 021 Inactive cephalexin 500 mg tablet RxNorm: 117377 Take 1 Tablet(s) Oral QID 02/27/20 21 021 Inactive cephalexin 500 mg tablet RxNorm: 107097 Take 1 Tablet(s) Oral QID 02/27/20 21 021 Inactive lisinopril 40 mg tablet RxNorm: 681954 Take 1 Tablet(s) Oral QD 02/11/20 21 023 Inactive Eliquis 5 mg tablet RxNorm: 8795936 Take 1 Tablet(s) Oral BID 01/05/20 21 022 Inactive Eliquis 5 mg tablet RxNorm: 2122012 Take 2 Tablet(s) Oral QD 01/01/20 21 021 Inactive Lyrica 50 mg capsule RxNorm: 667291 Take 1 Capsule(s) Oral QAM every morning 12/24/19 21 021 Inactive Lyrica 100 mg capsule RxNorm: 397351 Take 1 Capsule(s) Oral QHS every night at bedtime 12/24/19 021 Inactive clotrimazole 1 % topical cream RxNorm: 160306 Apply to right foot and toes Topical BID 12/04/19 21 023 Inactive metoprolol succinate ER 200 mg tablet,extended release 24 hr RxNorm: 630823 Take 1 Tablet(s) Oral QD 12/04/19 023 Inactive ciprofloxacin 500 mg tablet RxNorm: 648962 Take 1 Tablet(s) Oral QD 11/30/19 021 Inactive DX ofloxacin otic drops Accu-Chek Guide test strips RxNorm: USE 1 TO CHECK GLUCOSE 4 TIMES DAILY AND NEEDED 11/15/19 21 023 Inactive Blood Glucose Test strips RxNorm: Use 1 Test Strip QID at PRN 11/05/19 21 023 Inactive E11.42 lisinopril 30 mg tablet RxNorm: 056974 Take 1 Tablet(s) Oral QD 10/30/19 021 Inactive lisinopril 20 mg tablet RxNorm: 896497 Take 1 Tablet(s) Oral QD 10/23/19 021 Inactive lisinopril 20 mg tablet RxNorm: 748600 Take 1 Tablet(s) Oral QD 10/23/19 21 021 Inactive lisinopril 10 mg tablet RxNorm: 081218 Take 1 Tablet(s) Oral QD 10/02/19 21 021 Inactive icosapent ethyl 1 gram capsule RxNorm: 1432727 Take 2 Capsule(s) (2 gm) Oral BID with meals 09/12/19 21 024 Inactive Okay to dispense one 2gm tab if you have that available. icosapent ethyl 1 gram capsule RxNorm: 1912050 Take 2 Capsule(s) Oral BID 09/12/19 21 021 Inactive Okay to dispense one 2gm tab if you have that available. amlodipine 10 mg tablet RxNorm: 346848 Take 1 Tablet(s) Oral QD 09/04/19 022 Inactive aspirin 81 mg tablet,delayed release RxNorm: 739667 Take 1 Tablet(s) Oral QD 09/04/19 21 021 Inactive Levemir FlexTouch U-100 Insulin 100 unit/mL (3 mL) subcutaneous pen RxNorm: 737971 Inject 150 Unit(s) Subcutaneous BID 09/04/19 21 022 Inactive venlafaxine ER 150 mg tablet,extended release 24 hr RxNorm: 043175 Take 1 Tablet(s) Oral QD 09/04/19 021 Inactive clotrimazole-betame thasone 1 %-0.05 % topical cream RxNorm: 917433 Apply to rash on red area on left abdomen/chest Topical BID 08/10/19 21 021 Inactive amlodipine 5 mg tablet RxNorm: 702356 Take 1 Tablet(s) Oral QD 07/31/19 021 Inactive cephalexin 500 mg tablet RxNorm: 798805 Take 1 Tablet(s) Oral BID BID - Twice Daily 07/31/19 021 Inactive Start 08/01/20 pantoprazole 40 mg tablet,delayed release RxNorm: 261468 Take 1 Tablet(s) Oral QAM every morning 07/08/19 022 Inactive senna 8.6 mg tablet RxNorm: 693486 Take 1 Tablet(s) Oral QD 07/08/19 022 Inactive carbamazepine 200 mg tablet RxNorm: 129877 Take 1 Tablet(s) Oral BID 07/08/19 022 Inactive clopidogrel 75 mg tablet RxNorm: 268359 Take 1 Tablet(s) Oral QD 07/08/19 021 Inactive Blood Glucose Test strips RxNorm: Use 1 Test Strip QID at PRN 07/08/19 21 021 Inactive E11.42 Novolog Flexpen U-100 Insulin aspart 100 unit/mL (3 mL) subcutaneous RxNorm: 4908905 Administer per sliding scale Milliliter(s) Subcutaneous TID 151-200: 10 u; 201-250: 20 u; 251-300: 30 u; 301-350: 40 u; 351-400: 50 u. 07/08/19 022 Inactive lisinopril 5 mg tablet RxNorm: 150772 Take 1 Tablet(s) Oral QD 07/08/19 21 021 Inactive Novolog Flexpen U-100 Insulin aspart 100 unit/mL (3 mL) subcutaneous RxNorm: 6685963 Inject 85 Unit(s) Subcutaneous TID 07/08/19 022 Inactive pravastatin 80 mg tablet RxNorm: 508177 Take 1 Tablet(s) Oral QHS every night at bedtime 07/08/19 023 Inactive clotrimazole 1 % topical cream RxNorm: 513846 Apply to bilateral groin areas Topical BID 07/08/19 022 Inactive metoprolol succinate ER 200 mg tablet,extended release 24 hr RxNorm: 223045 Take 1 Tablet(s) Oral QD 07/08/19 021 Inactive Vitamin D3 25 mcg (1,000 unit) tablet RxNorm: 075079 Take 1 Tablet(s) Oral QD 07/08/19 021 Inactive isosorbide dinitrate 30 mg tablet RxNorm: 721083 Take 1 Tablet(s) Oral QD 07/08/19 021 Inactive Levemir FlexTouch U-100 Insulin 100 unit/mL (3 mL) subcutaneous pen RxNorm: 420464 Inject 140 Unit(s) Subcutaneous BID 07/08/19 021 Inactive torsemide 20 mg tablet RxNorm: 967683 Take 1 Tablet(s) Oral QD 07/08/19 21 023 Inactive venlafaxine 75 mg tablet RxNorm: 694200 Take 1 Tablet(s) Oral QD 07/08/19 21 021 Inactive acetaminophen 500 mg tablet RxNorm: 806487 Take 1 Tablet(s) Oral TID as needed for headache 06/18/19 21 021 Inactive acetaminophen 500 mg tablet RxNorm: 457316 Take 1 Tablet(s) Oral TID as needed for headache 06/18/19 21 021 Inactive Lyrica 100 mg capsule RxNorm: 728238 Take 1 Capsule(s) Oral QHS every night at bedtime 06/11/19 21 021 Inactive Lyrica 50 mg capsule RxNorm: 955692 Take 1 Capsule(s) Oral QAM every morning 06/10/19 21 021 Inactive hydrocortisone 2.5 % topical cream RxNorm: 977551 Apply to bilateral groin creases Topical BID 05/15/20 20 021 Inactive clotrimazole 1 % topical cream RxNorm: 109980 Apply to bilateral groin areas Topical BID 05/15/20 20 021 Inactive Lyrica 50 mg capsule RxNorm: 505752 Take 1 Capsule(s) Oral QAM every morning 05/14/20 20 020 Inactive Lyrica 100 mg capsule RxNorm: 186847 Take 1 Capsule(s) Oral QHS every night [...] Inactive Nystop 100,000 unit/gram topical powder RxNorm: 627414 Apply to abd folds, under breasts and L side of groin Topical BID x 14 days, then BID PRN 04/08/20 20 Inactive dx: yeast dermatitis Lyrica 100 mg capsule RxNorm: 017203 Take 1 Capsule(s) Oral QHS every night at bedtime 03/13/20 20 Inactive Lyrica 50 mg capsule RxNorm: 512479 Take 1 Capsule(s) Oral QAM every morning 03/13/20 20 Inactive ketoconazole 2 % shampoo RxNorm: 952153 Apply Topical two times a week with showers 03/11/20 20 Inactive cholecalciferol (vitamin D3) 50 mcg (2,000 unit) tablet RxNorm: 702942 Take 1 Tablet(s) Oral QD 03/11/20 20 Inactive Zetia 10 mg tablet RxNorm: 748679 Take 1 Tablet(s) Oral QD 03/07/20 20 Inactive Zetia 10 mg tablet RxNorm: 352631 Take 1 Tablet(s) Oral QD 03/07/20 20 Inactive Lyrica 50 mg capsule RxNorm: 074227 Take 1 Capsule(s) Oral QAM every morning 02/15/20 20 Inactive Lyrica 100 mg capsule RxNorm: 766885 Take 1 Capsule(s) Oral QHS every night at bedtime 02/15/20 20 Inactive Lyrica 100 mg capsule RxNorm: 303989 Take 1 Capsule(s) Oral QHS every night at bedtime 02/15/20 20 Inactive Lyrica 50 mg capsule RxNorm: 435398 Take 1 Capsule(s) Oral QAM every morning 02/15/20 20 Inactive metoprolol succinate ER 200 mg tablet,extended release 24 hr RxNorm: 643954 Take 1 Tablet(s) Oral QD 08/11 Activeloperamide 2 mg capsuleRxNorm: 533589Twyr 1 Capsule(s) Oral QID as needed 06/12/2021ctivehydralazine 50 mg tabletRxNorm: 886414Mrpt 1 Tablet(s) Oral QID 08/11/2022ctivevenlafaxine ER 75 mg capsule,extended release 24 hrRxNorm: 223004Yxqq 3 Capsule(s) Oral QD/Inactivepolyethylene glycol 3350 17 gram/dose oral powderRxNorm: 922733Eftn 17=1 capful Gram(s) Oral BID as needed mix with 4-8oz of trwwdo98/Inactiveicosapent ethyl 1 gram capsuleRxNorm: 3968464Dmkt 2 Capsule(s) (2 gm) Oral BID with meals /InactiveOkay to dispense one 2gm tab if you have that available.Levemir FlexTouch U-100 Insulin 100 unit/mL (3 mL) subcutaneous pen RxNorm: 855915Kuzuhf 80 Unit(s) Subcutaneous BID07/14//Inactive Novolog Flexpen U-100 Insulin aspart 100 unit/mL (3 mL) subcutaneousRxNorm: 0532619Inmqiv 30 Unit(s) Subcutaneous TID with meals/Inactive Medication Administered No Medication Administered data Reason For Visit No Reason For Visit data Plan of Care Planned Activity Notes Codes Status Date Referral: [facility] [address] [address] [id number] USReferralRecords Lmdwdejd55/08/2023Referral: [facility] WPtel: [address] [id number] KPYamkcijhMowevfrwm28/12/2022Referral: General CardiologyReferralCompleted 1Referral: General PsychologistReferralClosedReferral: General PsychiatristReferralPatient/Family [...] Sister Jyotsna involved in his care cell# [phone] Guardian: Don (tapan met in person 09/01/21), now has Lexii (same group as don)Lab Schedule: *September (CBC with diff, CMP, A1c) (Novemebr: CBC, CMP, A1c, Lipids, VitD) 10/08/2023
--- OUTSIDE RECORDS SUMMARY | 2023-07-06 18:00 | XMS_ITS | CCD ---
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 Product Applications Scientist Name Role Phone [place] [facility] Primary Care Provider Leona vailable [place] [facility] Chronic Care Management U navailable Summary Purpose DataExchange Insurance Providers Payer name Policy type / Coverage type Covered republican ID Effective Begin Date Effective End Date [place] [id number] Unknown Unknown [place] [id number] Unknown Unknown Family history Sister Brittany Suggs [...] Facility 09/03/[address]: 2535598 Non-Smoker / No History of Smoking 09/02/[address]: 269727305 No Alcohol Consum ption 09/02/2020 Allergies, Adverse Reactions, Alerts Substance Reaction Codes Entered Date Inactivated Date Status LISINOPRIL RxNorm: 0930710No Inactive DateActiveMetformin RFcFmohlkm64/28/2020No Inactive DateActive Problems Condition Codes Effective Dates [...] ICD-10: I11.9 ICD-9: 402.9012/ctiveCoronary artery disease involving [place] coronary artery of [place] heart, angina presence unspecifiedICD-10: I25.10 ICD-9: 414.0111/ctiveReducible umbilical herniaICD-10: K42.9 ICD-9: 553.111/ctiveBMI 60.0-69.9, adultICD-10: Z68.44 ICD-9: V85.4410/ctiveCandidal intertrigoICD-10: B37.2 ICD-9: 112.310/ctiveHyperlipidemia associated with type 2 diabetes mellitusICD-10: E11.69 ICD-9: 250.8010/ctiveHyperlipidemia, unspecifiedICD-10: E78.5 ICD-9: 272.410/ctiveStage 2 chronic 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ICD-10: E11.22 ICD-9: 250.4010/ctiveInappropriate sexual behaviorICD-10: Z72.89 ICD-9: 312.8910/ctiveLearning disabilityICD-10: F81.9 ICD-9: 315.210/ctiveMajor depression, recurrentICD-10: F33.9 ICD-9: 296.3010/ctiveOther intermediate (current) drug therapyICD-10: Z79.899 ICD-9: V58.6910/ctiveRecurrent major [...] vascular disease)ICD-10: I73.9 ICD-9: 443.909/2ActiveDepressionICD-10: F32.9 ICD-9: 29656/esolvedDVT (deep venous thrombosis)ICD-10: I82.409 ICD-9: 453.4009/2ResolvedEncounter for immunizationICD-10: Z23 ICD-9: V03.8909/2ResolvedLong term (current) use of insulinICD-10: Z79.4 2ResolvedMuscular painICD-10: M79.10 ICD-9: 729.1092ResolvedDandruff in adultICD-10: L21.0 ICD-9: 690.18001/06/2022ctiveHypertension associated with diabetesICD-10: E11.59 ICD-9: 250.80001/06/2022esolvedHistory of anemia due to CKDICD-10: N18.9 ICD-9: 585.907/2ActiveStage 2 chronic kidney diseaseICD-10: N18.2 ICD-9: 585.207ctiveGout due to renal impairmentICD-10: M10.30 ICD-9: 274.10062ActiveSkin tagICD-10: L91.8 ICD-9: 701.911ctiveCallus of heelICD-10: L84 ICD-9: 849451ActiveImpacted cerumen, left earICD-10: H61.22 ICD-9: 380.408/ctiveContact with [...] Z20.828 ICD-9: V01.79021ResolvedHyperhidrosis of palmsICD-10: L74.512 ICD-9: 705.5606KgxivtBmvtrmeiTxjhoev18/28/2020ActiveDiabetes mellitus Type 1Itytyyg53/28/2020ActiveAnemia in chronic kidney diseaseICD-10: D63.1 02/12/2020ResolvedHyperlipidemia, unspecifiedICD-10: E78.Resolved Medications Medication Codes Instructions Start Date Stop Date Status Fill Instructions Basaglar KwikPen U-100 Insulin 100 unit/mL (3 mL) subcutaneous RxNorm: 5085445 Inject 30U SubQ twice daily 07/07/19 24 024 Inactive Please dispense one month supply. Basaglar KwikPen U-100 Insulin 100 unit/mL (3 mL) subcutaneous RxNorm: 6282711 Inject 30U SubQ twice daily 07/07/19 24 025 Active Please dispense one month supply. pregabalin 150 mg capsule RxNorm: 994261 Take 1 Capsule(s) Oral QHS every night at bedtime 07/05/19 24 024 Active pregabalin 150 mg capsule RxNorm: 469483 Take 1 Capsule(s) Oral QHS every night at bedtime 07/05/19 24 024 Inactive polyethylene glycol 3350 17 gram/dose oral powder RxNorm: 642785 Take 1 Packet Oral QD as needed (1 packet = 17g) mix with 4-8oz of liquid 06/15/19 24 024 Inactive bisacodyl 10 mg rectal suppository RxNorm: 107903 Insert one suppository per rectum once daily as needed for constipation 06/15/19 24 024 Inactive bisacodyl 10 mg rectal suppository RxNorm: 958271 Insert one suppository per rectum once daily as needed for constipation 06/15/19 24 024 Inactive pregabalin 100 mg capsule RxNorm: 181143 Take 1 Capsule(s) Oral QAM every morning 04/27/20 23 024 Inactive Levemir FlexPen 100 unit/mL (3 mL) solution subcutaneous insulin pen RxNorm: 922389 Inject 30 Unit(s) Subcutaneous BID 04/27/20 23 024 Inactive rosuvastatin 40 mg tablet RxNorm: 696569 Take 1 Tablet(s) Oral QPM every evening 04/16/20 024 Inactive D/C rosuvastatin 20mg venlafaxine ER 75 mg capsule,extended release 24 hr RxNorm: 233964 Take 3 Capsule(s) Oral QD 04/14/20 023 Inactive pregabalin 100 mg capsule RxNorm: 383298 Take 1 Capsule(s) Oral QAM every morning [...] meter clotrimazole 1 % topical cream RxNorm: 282754 Take apply topically to abdominal folds twice daily for 14 days 03/12/20 024 Inactive Ozempic 1 mg/dose (4 mg/3 mL) subcutaneous pen injector RxNorm: 9257170 Inject 1 Milligram(s) Subcutaneous QW once a week 03/11/20 023 Inactive rosuvastatin 20 mg tablet RxNorm: 533646 Take 1 Tablet(s) Oral QD 02/26/20 23 023 Inactive d/c pravastatin 80mg Ozempic 1 mg/dose (4 mg/3 mL) subcutaneous pen injector RxNorm: 9994992 Inject 1 Milligram(s) Subcutaneous QW once a week 02/20/20 23 023 Inactive pregabalin 150 mg capsule RxNorm: 574847 Take 1 Capsule(s) Oral HS at bed time 02/19/20 023 Inactive pregabalin 100 mg capsule RxNorm: 776704 Take 1 Capsule(s) Oral QAM every morning 02/18/20 23 023 Inactive FreeStyle Chema 2 Sensor kit RxNorm: use as directed 02/04/20 024 Inactive venlafaxine ER 75 mg capsule,extended release 24 hr RxNorm: 535984 Take 3 Capsule(s) Oral QD 02/04/20 23 023 Inactive FreeStyle Chema 2 Sensor kit RxNorm: use as directed 02/04/20 23 023 Inactive fluconazole 150 mg tablet RxNorm: 435007 Take 1 Tablet(s) Oral on day 3 and on day 6 02/03/20 23 024 Active chlorthalidone 25 mg tablet RxNorm: 454052 Take 1 Tablet(s) Oral QAM every morning 02/03/20 23 No Stop Date Active venlafaxine ER 150 mg capsule,extended release 24 hr RxNorm: 011633 Take 1 Capsule(s) Oral QD 02/03/20 23 023 Inactive acetaminophen 500 mg tablet RxNorm: 691789 1 TABLET ORALLY 3 TIMES DAILY (MAX APAP:4GM/24HR) 12/15/19 23 023 Inactive potassium chloride ER 20 mEq tablet,extended release RxNorm: 520426 Take 1 Tablet(s) Oral BID 12/09/19 23 024 Inactive d/c 20mEq once daily (sent from hospital) clotrimazole 1 % topical cream RxNorm: 883405 apply 1g topically to top of feet and in between toes BID 12/09/19 23 023 Inactive nystatin 100,000 unit/gram topical powder RxNorm: 069094 APPLY TO AFFECTED AREAS TOPICALLY 2 TIMES DAILY 11/21/19 23 024 Inactive Nystop 100,000 unit/gram topical powder RxNorm: 292493 Apply to abd folds, under breasts and L side of groin Topical BID x 14 days, then BID PRN 11/20/19 23 023 Inactive dx: yeast dermatitis [place] Ultra Strength 4 %-30 %-10 % topical cream RxNorm: 462414 Apply 1 Gram(s) Topical QID PRN to feet and legs for neuropathic pain 11/11/19 23 024 Active hydrocortisone 2.5 % topical cream RxNorm: 900580 Apply 1/2 Gram(s) Topical BID as needed 11/10/19 23 024 Inactive clotrimazole 1 % topical cream RxNorm: 154649 Apply 1/2 Gram(s) Topical BID Apply to affected areas of groin, periarea, and abdominal topically 2 times daily 11/10/19 023 Inactive Humulin R U-500 (Concentrated) Insulin 500 unit/mL subcutaneous soln RxNorm: 486285 Inject 100 Unit(s) Subcutaneous TID 10/07/19 024 Inactive Ozempic 0.25 mg or 0.5 mg (2 mg/3 mL) subcutaneous pen injector RxNorm: 7334756 Inject 1/2 Milligram(s) Subcutaneous QW once a week 10/07/19 024 Inactive Levemir FlexPen 100 unit/mL (3 mL) solution subcutaneous insulin pen RxNorm: 346094 Inject 30 Unit(s) Subcutaneous BID 10/07/19 023 Inactive aripiprazole 15 mg tablet RxNorm: 909291 1/2 TAB (7.5MG) ORALLY DAILY (DX:MAJOR DEPRESSIVE DISORDER) 09/23/19 23 023 Inactive Lancets,Thin 28 gauge RxNorm: Use 1 as directed QID 09/15/19 23 024 Inactive Accu-Chek Guide test strips RxNorm: Use 1 Test Strip QID 09/15/19 23 023 Inactive ok to substitute with any covered alternative test strip torsemide 20 mg tablet RxNorm: 551709 Take 1 Tablet(s) Oral BID 09/09/19 024 Inactive d/c once daily dosing carvedilol 25 mg tablet RxNorm: 548138 Take 1 Tablet(s) Oral QD 08/25/19 23 024 Inactive pregabalin 150 mg capsule RxNorm: 478070 1 Capsule(s) Oral HS at bed time 08/18/19 023 Inactive pregabalin 100 mg capsule RxNorm: 929287 1 Capsule(s) Oral QAM every morning 08/18/19 023 Inactive carvedilol 25 mg tablet RxNorm: 860826 1 Tablet(s) Oral QD 07/28/19 023 Inactive lisinopril 20 mg tablet RxNorm: 653663 Give 1 Tablet(s) Oral QD 07/28/19 23 023 Inactive Lyrica 150 mg capsule RxNorm: 680936 Take 1 Capsule(s) Oral QHS every night at bedtime 07/19/19 23 023 Inactive d/c 100mg dose Diflucan 150 mg tablet RxNorm: 392816 Take 1 Tablet(s) Oral QD repeat on day 3 and 6 07/19/19 23 023 Inactive pregabalin 100 mg capsule RxNorm: 392111 Take 1 Capsule(s) Oral QAM every morning 07/19/19 23 023 Inactive gatifloxacin 0.5 % eye drops RxNorm: 954612 Instill 1 Drop(s) as directed TID Instill 1 drop in to affected eye(s) starting 1 day prior to surgery and continue until gone (do not exceed 4 weeks). 07/13/19 23 023 Inactive carvedilol 25 mg tablet RxNorm: 319456 2 Tablet(s) Oral BID 07/13/19 23 023 Inactive Humulin R Regular U-100 Insulin 100 unit/mL injection solution RxNorm: 807990 85 Unit(s) Injection TID 07/13/19 23 023 Inactive ketorolac 0.5 % eye drops RxNorm: 640909 Instill 1 Drop(s) as directed QID Instill 1 drop into affected eye(s) 4 times daily starting 1 day prior to surgery and continue until gone (do not exceed 4 weeks). 07/13/19 23 023 Inactive Diflucan 150 mg tablet RxNorm: 031705 Take 1 Tablet(s) Oral QD repeat on day 3 and 6 06/30/19 23 023 Inactive Accu-Chek Guide test strips RxNorm: Use 1 Test Strip QID Use 1 test strip to monitor blood glucose 4 times daily and as needed. Dx:E11.42. 06/23/19 23 023 Inactive ok to substitute with any covered alternative test strip dextromethorphan-gu aifenesin 10 mg-100 mg/5 mL oral liquid RxNorm: 890352 Take 10 Milliliter(s) Oral every 4 hours as needed for cough 06/19/19 023 Inactive dextromethorphan-gu aifenesin 10 mg-100 mg/5 mL oral liquid RxNorm: 427632 Take 10 Milliliter(s) Oral every 4 hours as needed for cough 06/19/19 023 Inactive Lyrica 150 mg capsule RxNorm: 233860 Take 1 Capsule(s) Oral QHS every night at bedtime 06/18/19 023 Inactive d/c 100mg dose aripiprazole 15 mg tablet RxNorm: 906249 / TAB (7.5MG) ORALLY DAILY (DX:MAJOR DEPRESSIVE DISORDER) 06/05/19 023 Inactive pregabalin 100 mg capsule RxNorm: 554661 1 Capsule(s) Oral QAM every morning 06/02/19 023 Inactive Banophen 50 mg capsule RxNorm: 9571937 Take 1 Capsule(s) Oral Q6H every 6 hours as needed 05/19/19 23 No Stop Date Active Novolog Flexpen U-100 Insulin aspart 100 unit/mL (3 mL) subcutaneous RxNorm: 9790241 Inject 10 Unit(s) Subcutaneous QHS every night at bedtime with nighttime snack 04/08/20 022 Inactive Novolog Flexpen U-100 Insulin aspart 100 unit/mL (3 mL) subcutaneous RxNorm: 3278084 Inject 42 Unit(s) Subcutaneous TID in addition to sliding scale 04/08/20 022 Inactive d/c 36u albuterol sulfate HFA 90 mcg/actuation aerosol inhaler RxNorm: 6353252 Take 2 Puff(s) Inhalation Q4H every four hours as needed as needed for SOB, cough, or wheezing 04/07/20 030 Active Banophen 50 mg capsule RxNorm: 6570779 Take 1 Capsule(s) Oral Q6H every 6 hours as needed 04/06/20 023 Inactive diphenhydramine 50 mg tablet RxNorm: 6524890 Take 1 Tablet(s) Oral Q6H every 6 hours as needed 04/06/20 22 022 Inactive diphenhydramine 50 mg tablet RxNorm: 0249827 1 Tablet(s) Oral Q6H every 6 hours as needed 04/06/20 22 022 Inactive Abilify 15 mg tablet RxNorm: 682937 1/2 Tablet(s) Oral QD 03/10/20 22 023 Inactive Shingrix (PF) 50 mcg/0.5 mL intramuscular suspension, kit RxNorm: 5837246 Administer 1/2 Milliliter(s) Intramuscular QD one time shingrix step 2 ( step 1 given 11/04/21) WITH needle - Nursing please administer upon arrival and once administered post a bridge message 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, 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, expiration date, and lot# so we can update [facility] 02/18/20 22 022 Inactive dispense with needle Shingrix (PF) 50 mcg/0.5 mL intramuscular suspension, kit RxNorm: 3707445 Administer 1/2 Milliliter(s) Intramuscular QD one time shingrix step 2 ( step 1 given 11/04/21) WITH needle - Nursing please administer upon arrival and once administered post a bridge message with date of administration, steel fabricator, expiration date, and lot# so we can update [facility] 02/18/20 22 022 Inactive dispense with needle polyethylene glycol 3350 17 gram/dose oral powder RxNorm: 827271 Take 17=1 capful Gram(s) Oral QD mix with 4-8oz of liquid 01/08/20 22 023 Inactive take this in addition to BID prn order Lyrica 100 mg capsule RxNorm: 912603 Take 1 Capsule(s) Oral QAM every morning 01/08/20 22 022 Inactive d/c 50mg dose acetaminophen 500 mg tablet RxNorm: 939131 Take 1 Tablet(s) Oral TID 01/08/20 22 022 Inactive d/c PRN order Lyrica 150 mg capsule RxNorm: 126993 Take 1 Capsule(s) Oral QHS every night at bedtime 01/08/20 22 023 Inactive d/c 100mg dose Abilify 5 mg tablet RxNorm: 108009 Take 1 Tablet(s) Oral QD take 1 tab po QD #30 refill 5 dx: MDD 12/12/19 22 022 Inactive Abilify 5 mg tablet RxNorm: 603870 Take 1 Tablet(s) Oral QD take 1 tab po QD #30 refill 5 dx: MDD 12/12/19 22 022 Inactive Novolog Flexpen U-100 Insulin aspart 100 unit/mL (3 mL) subcutaneous RxNorm: 3025040 Inject 42 Unit(s) Subcutaneous TID in addition to sliding scale 12/10/19 22 Inactive d/c 36u chlorthalidone 25 mg tablet RxNorm: 287640 Take 1 Tablet(s) Oral QAM every morning 12/10/19 22 023 Inactive pregabalin 50 mg capsule RxNorm: 373774 Take 1 Capsule(s) Oral QAM every morning 11/12/19 22 Inactive tetanus-diphtheria toxoids-Td 2 Lf unit-2 Lf unit/0.5 mL IM suspension RxNorm: 139 Take 0.5 Miscellaneous Intramuscular 11/12/19 22 022 Inactive need tdap - nursing to administer upon arrival pregabalin 50 mg capsule RxNorm: 346677 Take 1 Capsule(s) Oral QAM every morning 10/16/19 22 022 Inactive pregabalin 50 mg capsule RxNorm: 686323 Take 1 Capsule(s) Oral QAM every morning 10/16/19 22 022 Inactive pregabalin 50 mg capsule RxNorm: 314826 1 Capsule(s) Oral QAM every morning 10/15/19 22 022 Inactive Shingrix (PF) 50 mcg/0.5 mL intramuscular suspension, kit RxNorm: 7519727 Administer 1/2 Milliliter(s) Intramuscular one time Nursing please administer upon arrival and once administered post a bridge message with date of administration, steel fabricator, expiration date, and lot# so we can update [facility]. 10/09/19 22 022 Inactive shingrix step 1 Shingrix (PF) 50 mcg/0.5 mL intramuscular suspension, kit RxNorm: 7126530 Administer 1/2 Milliliter(s) Intramuscular one time Nursing please administer upon arrival and once administered post a bridge message with date of administration, steel fabricator, expiration date, and lot# so we can update [facility]. 10/09/19 22 Inactive shingrix step 1 cholecalciferol (vitamin D3) 1,250 mcg (50,000 unit) capsule RxNorm: 502845 Take 1 Capsule(s) Oral QW once a [...] aspart 100 unit/mL (3 mL) subcutaneous RxNorm: 7360118 Inject 10 Unit(s) Subcutaneous QHS every night at bedtime with nighttime snack 10/08/19 22 Inactive Shingrix (PF) 50 mcg/0.5 mL intramuscular suspension, kit RxNorm: 7168408 ADMINISTER 2-DOSE SERIES PER CDC GUIDELINES 10/08/19 22 Active Shingrix (PF) 50 mcg/0.5 mL intramuscular suspension, kit RxNorm: 2275389 ADMINISTER 2-DOSE SERIES PER CDC GUIDELINES 10/08/19 22 Inactive Novolog Flexpen U-100 Insulin aspart 100 unit/mL (3 mL) subcutaneous RxNorm: 6605768 Inject 36 Unit(s) Subcutaneous TID in addition to sliding scale 10/08/19 22 Inactive Novofine Autocover 30 gauge x 1/3 needle RxNorm: Use 1 Miscellaneous UD as directed Use 1 needle as directed to administer insulin 5 times a day Dx:E11.42. 10/03/19 22 Inactive ok to substitute with any covered alternative pen needle benzoyl peroxide 10 % topical cleanser RxNorm: 547755 Apply 1 Application Topical QD apply to face, wash rinse and dry once daily (may change to QOD if drying) 08/19/19 22 022 Inactive (%covered by insurance) #60ml refill 11 dx: acne benzoyl peroxide 10 % topical cleanser RxNorm: 487605 Apply 1 Application Topical QD apply to face, wash rinse and dry once daily (may change to QOD if drying) 08/19/19 22 022 Inactive (%covered by insurance) #60ml refill 11 dx: acne benzoyl peroxide 10 % topical cleanser RxNorm: 554770 Apply 1 Application Topical QD apply to face, wash rinse and dry once daily (may change to QOD if drying) 08/19/19 22 022 Inactive (%covered by insurance) #60ml refill 11 dx: acne Lyrica 50 mg capsule RxNorm: 057961 Take 1 Capsule(s) Oral QAM every morning Take 1 capsule by mouth once daily 08/19/19 Inactive benzoyl peroxide 10 % topical cleanser RxNorm: 683943 Apply 1 Application Topical QD apply to face, wash rinse and dry once daily (may change to QOD if drying) 08/19/19 22 022 Inactive (%covered by insurance) #60ml refill 11 dx: acne Lyrica 100 mg capsule RxNorm: 083272 Take 1 Capsule(s) Oral QHS every night at bedtime Take 1 capsule by mouth once daily at bedtime 08/19/19 22 022 Inactive Lyrica 100 mg capsule RxNorm: 743328 Take 1 Capsule(s) Oral QHS every night at bedtime Take 1 capsule by mouth once daily at bedtime 08/16/19 Inactive Lyrica 50 mg capsule RxNorm: 393257 Take 1 Capsule(s) Oral QAM every morning Take 1 capsule by mouth once daily 08/16/19 Inactive Levemir FlexTouch U-100 Insulin 100 unit/mL (3 mL) subcutaneous pen RxNorm: 292591 Inject 86 Unit(s) Subcutaneous BID 08/05/19 22 022 Inactive d/c 83units BID Lyrica 100 mg capsule RxNorm: 811482 Take 1 Capsule(s) Oral QHS every night at bedtime Take 1 capsule by mouth once daily at bedtime 07/14/19 22 Inactive Lyrica 50 mg capsule RxNorm: 730150 Take 1 Capsule(s) Oral QAM every morning Take 1 capsule by mouth once daily 07/14/19 22 Inactive Levemir FlexTouch U-100 Insulin 100 unit/mL (3 mL) subcutaneous pen RxNorm: 621239 Inject 83 Unit(s) Subcutaneous BID 07/08/19 22 [...] 30 mg tablet,extended release 24 hr RxNorm: 964071 Take 1 Tablet(s) Oral QD 05/05/20 024 Inactive hydralazine 50 mg tablet RxNorm: 858567 Take 1 Tablet(s) Oral QID 05/05/20 022 Inactive venlafaxine ER 225 mg tablet,extended release 24 hr RxNorm: 210732 Take 1 Tablet(s) Oral QD 05/05/20 021 Inactive venlafaxine ER 225 mg tablet,extended release 24 hr RxNorm: 465040 Take 1 Tablet(s) Oral QD 05/05/20 022 Inactive hydralazine 50 mg tablet RxNorm: 035944 Take 1 Tablet(s) Oral QID 05/05/20 Inactive aspirin 81 mg tablet,delayed release RxNorm: 679011 Take 1 Tablet(s) Oral QD 03/31/20 022 Inactive Zetia 10 mg tablet RxNorm: 993794 Take 1 Tablet(s) Oral QD 03/31/20 024 Inactive Vitamin D2 1,250 mcg (50,000 unit) capsule RxNorm: 4503928 Take 1 Capsule(s) Oral QW once a week x 12 weeks 03/31/20 022 Inactive Vitamin D2 1,250 mcg (50,000 unit) capsule RxNorm: 8561754 Take 1 Capsule(s) Oral QW once a week 03/31/20 Inactive Zetia 10 mg tablet RxNorm: 974137 Take 1 Tablet(s) Oral QD 03/31/20 021 Inactive hydralazine 25 mg tablet RxNorm: 699341 Take 1 Tablet(s) Oral QID 03/31/20 021 Inactive hydralazine 25 mg tablet RxNorm: 673825 Take 1 Tablet(s) Oral QID 03/31/20 021 Inactive hydralazine 10 mg tablet RxNorm: 663416 Take 1 Tablet(s) Oral QID 03/03/20 021 Inactive cephalexin 500 mg tablet RxNorm: 878047 Take 1 Tablet(s) Oral QID 02/27/20 021 Inactive cephalexin 500 mg tablet RxNorm: 211484 Take 1 Tablet(s) Oral QID 02/27/20 021 Inactive lisinopril 40 mg tablet RxNorm: 581054 Take 1 Tablet(s) Oral QD 02/11/20 023 Inactive Eliquis 5 mg tablet RxNorm: 2019409 Take 1 Tablet(s) Oral BID 01/05/20 21 022 Inactive Eliquis 5 mg tablet RxNorm: 1603976 Take 2 Tablet(s) Oral QD 01/01/20 21 021 Inactive Lyrica 50 mg capsule RxNorm: 742956 Take 1 Capsule(s) Oral QAM every morning 12/24/19 021 Inactive Lyrica 100 mg capsule RxNorm: 846963 Take 1 Capsule(s) Oral QHS every night at bedtime 12/24/19 021 Inactive clotrimazole 1 % topical cream RxNorm: 024122 Apply to right foot and toes Topical BID 12/04/19 21 023 Inactive metoprolol succinate ER 200 mg tablet,extended release 24 hr RxNorm: 214169 Take 1 Tablet(s) Oral QD 12/04/19 21 023 Inactive ciprofloxacin 500 mg tablet RxNorm: 063667 Take 1 Tablet(s) Oral QD 11/30/19 021 Inactive DX ofloxacin otic drops Accu-Chek Guide test strips RxNorm: USE 1 TO CHECK GLUCOSE 4 TIMES DAILY AND NEEDED 11/15/19 21 023 Inactive Blood Glucose Test strips RxNorm: Use 1 Test Strip QID at PRN 11/05/19 21 023 Inactive E11.42 lisinopril 30 mg tablet RxNorm: 570966 Take 1 Tablet(s) Oral QD 10/30/19 21 021 Inactive lisinopril 20 mg tablet RxNorm: 592775 Take 1 Tablet(s) Oral QD 10/23/19 21 021 Inactive lisinopril 20 mg tablet RxNorm: 671533 Take 1 Tablet(s) Oral QD 10/23/19 21 021 Inactive lisinopril 10 mg tablet RxNorm: 835229 Take 1 Tablet(s) Oral QD 10/02/19 21 021 Inactive icosapent ethyl 1 gram capsule RxNorm: 4120370 Take 2 Capsule(s) (2 gm) Oral BID with meals 09/12/19 21 024 Inactive Okay to dispense one 2gm tab if you have that available. icosapent ethyl 1 gram capsule RxNorm: 3578768 Take 2 Capsule(s) Oral BID 09/12/19 21 021 Inactive Okay to dispense one 2gm tab if you have that available. amlodipine 10 mg tablet RxNorm: 820043 Take 1 Tablet(s) Oral QD 09/04/19 21 022 Inactive aspirin 81 mg tablet,delayed release RxNorm: 393565 Take 1 Tablet(s) Oral QD 09/04/19 21 021 Inactive Levemir FlexTouch U-100 Insulin 100 unit/mL (3 mL) subcutaneous pen RxNorm: 671267 Inject 150 Unit(s) Subcutaneous BID 09/04/19 21 022 Inactive venlafaxine ER 150 mg tablet,extended release 24 hr RxNorm: 687871 Take 1 Tablet(s) Oral QD 09/04/19 21 021 Inactive clotrimazole-betame thasone 1 %-0.05 % topical cream RxNorm: 618274 Apply to rash on red area on left abdomen/chest Topical BID 08/10/19 21 021 Inactive amlodipine 5 mg tablet RxNorm: 116621 Take 1 Tablet(s) Oral QD 07/31/19 21 021 Inactive cephalexin 500 mg tablet RxNorm: 085036 Take 1 Tablet(s) Oral BID BID - Twice Daily 07/31/19 21 021 Inactive Start 08/01/20 pantoprazole 40 mg tablet,delayed release RxNorm: 371209 Take 1 Tablet(s) Oral QAM every morning 07/08/19 21 022 Inactive senna 8.6 mg tablet RxNorm: 967493 Take 1 Tablet(s) Oral QD 07/08/19 21 022 Inactive carbamazepine 200 mg tablet RxNorm: 957380 Take 1 Tablet(s) Oral BID 07/08/19 022 Inactive clopidogrel 75 mg tablet RxNorm: 598844 Take 1 Tablet(s) Oral QD 07/08/19 21 021 Inactive Blood Glucose Test strips RxNorm: Use 1 Test Strip QID at PRN 07/08/19 Inactive E11.42 Novolog Flexpen U-100 Insulin aspart 100 unit/mL (3 mL) subcutaneous RxNorm: 4741661 Administer per sliding scale Milliliter(s) Subcutaneous TID 151-200: 10 u; 201-250: 20 u; 251-300: 30 u; 301-350: 40 u; 351-400: 50 u. 07/08/19 Inactive lisinopril 5 mg tablet RxNorm: 010435 Take 1 Tablet(s) Oral QD 07/08/19 021 Inactive Novolog Flexpen U-100 Insulin aspart 100 unit/mL (3 mL) subcutaneous RxNorm: 3411919 Inject 85 Unit(s) Subcutaneous TID 07/08/19 022 Inactive pravastatin 80 mg tablet RxNorm: 960084 Take 1 Tablet(s) Oral QHS every night at bedtime 07/08/19 023 Inactive clotrimazole 1 % topical cream RxNorm: 475656 Apply to bilateral groin areas Topical BID 07/08/19 022 Inactive metoprolol succinate ER 200 mg tablet,extended release 24 hr RxNorm: 450300 Take 1 Tablet(s) Oral QD 07/08/19 Inactive Vitamin D3 25 mcg (1,000 unit) tablet RxNorm: 418013 Take 1 Tablet(s) Oral QD 07/08/19 21 021 Inactive isosorbide dinitrate 30 mg tablet RxNorm: 846350 Take 1 Tablet(s) Oral QD 07/08/19 21 021 Inactive Levemir FlexTouch U-100 Insulin 100 unit/mL (3 mL) subcutaneous pen RxNorm: 542594 Inject 140 Unit(s) Subcutaneous BID 07/08/19 21 021 Inactive torsemide 20 mg tablet RxNorm: 234372 Take 1 Tablet(s) Oral QD 07/08/19 21 023 Inactive venlafaxine 75 mg tablet RxNorm: 518617 Take 1 Tablet(s) Oral QD 07/08/19 021 Inactive acetaminophen 500 mg tablet RxNorm: 230974 Take 1 Tablet(s) Oral TID as needed for headache 06/18/19 21 021 Inactive acetaminophen 500 mg tablet RxNorm: Take 1 Tablet(s) Oral TID as needed for headache 06/18/19 021 Inactive Lyrica 100 mg capsule RxNorm: 041243 Take 1 Capsule(s) Oral QHS every night at bedtime 06/11/19 21 021 Inactive Lyrica 50 mg capsule RxNorm: 069095 Take 1 Capsule(s) Oral QAM every morning 06/10/19 21 021 Inactive hydrocortisone 2.5 % topical cream RxNorm: 082704 Apply to bilateral groin creases Topical BID 05/15/20 20 021 Inactive clotrimazole 1 % topical cream RxNorm: 260260 Apply to bilateral groin areas Topical BID 05/15/20 20 021 Inactive Lyrica 50 mg capsule RxNorm: 176409 Take 1 Capsule(s) Oral QAM every morning 05/14/20 20 020 Inactive Lyrica 100 mg capsule RxNorm: 405241 Take 1 Capsule(s) Oral QHS every night [...] Inactive Nystop 100,000 unit/gram topical powder RxNorm: 552682 Apply to abd folds, under breasts and L side of groin Topical BID x 14 days, then BID PRN 04/08/20 20 Inactive dx: yeast dermatitis Lyrica 100 mg capsule RxNorm: 532144 Take 1 Capsule(s) Oral QHS every night at bedtime 03/13/20 20 Inactive Lyrica 50 mg capsule RxNorm: 513488 Take 1 Capsule(s) Oral QAM every morning 03/13/20 20 Inactive ketoconazole 2 % shampoo RxNorm: 429108 Apply Topical two times a week with showers 03/11/20 20 Inactive cholecalciferol (vitamin D3) 50 mcg (2,000 unit) tablet RxNorm: 093358 Take 1 Tablet(s) Oral QD 03/11/20 20 Inactive Zetia 10 mg tablet RxNorm: 851028 Take 1 Tablet(s) Oral QD 03/07/20 20 021 Inactive Zetia 10 mg tablet RxNorm: 309474 Take 1 Tablet(s) Oral QD 03/07/20 20 Inactive Lyrica 50 mg capsule RxNorm: 481206 Take 1 Capsule(s) Oral QAM every morning 02/15/20 20 Inactive Lyrica 100 mg capsule RxNorm: 520865 Take 1 Capsule(s) Oral QHS every night at bedtime 02/15/20 20 Inactive Lyrica 100 mg capsule RxNorm: 590818 Take 1 Capsule(s) Oral QHS every night at bedtime 02/15/20 20 Inactive Lyrica 50 mg capsule RxNorm: 467208 Take 1 Capsule(s) Oral QAM every morning 02/15/20 020 Inactive metoprolol succinate ER 200 mg tablet,extended release 24 hr RxNorm: 387783 Take 1 Tablet(s) Oral QD 08/11 Activeloperamide 2 mg capsuleRxNorm: 688306Whhx 1 Capsule(s) Oral QID as needed 06/12/2021ctivehydralazine 50 mg tabletRxNorm: 728928Rpgq 1 Tablet(s) Oral QID 08/11/2022ctivevenlafaxine ER 75 mg capsule,extended release 24 hrRxNorm: 291889Gapn 3 Capsule(s) Oral QD/Inactivepolyethylene glycol 3350 17 gram/dose oral powderRxNorm: 135766Eahb 17=1 capful Gram(s) Oral BID as needed mix with 4-8oz of bhyaqi05/Inactiveicosapent ethyl 1 gram capsuleRxNorm: 6812584Lcwb 2 Capsule(s) (2 gm) Oral BID with meals /InactiveOkay to dispense one 2gm tab if you have that available.Levemir FlexTouch U-100 Insulin 100 unit/mL (3 mL) subcutaneous pen RxNorm: 575482Rtoxls 80 Unit(s) Subcutaneous BID/Inactive Novolog Flexpen U-100 Insulin aspart 100 unit/mL (3 mL) subcutaneousRxNorm: 8950174Wwzosv 30 Unit(s) Subcutaneous TID with meals/Inactive Medication Administered No Medication Administered data Reason For Visit No Reason For Visit data Plan of Care Planned Activity Notes Codes Status Date Referral: [facility] WPtel: [address], [address] [id number] USReferralRecords [id number]/08/2023Referral: [facility] WPtel: [address] [id number]/12/2022eferral: General CardiologyReferralCompleted 1Referral: General PsychologistReferralClosedReferral: General PsychiatristReferralPatient/Family [...] Sister Jyotsna involved in his care cell# [phone] Guardian: Don (tapan met in person 09/01/21), now has Lexii (same group as don)Lab Schedule: /September*September (CBC with diff, CMP, A1c) (Novemebr: CBC, CMP, A1c, Lipids, VitD) 10/08/2023
--- OUTSIDE RECORDS SUMMARY | 2023-07-18 18:00 | XMS_ITS | CCD ---
Author Name Alissa Zheng MD her Address [address] [place] [address] Phone Organization [facility] Phone Care Team Providers Care [employer]ing [facility] Operator Name Role Phone Arpit MCKINLEY-CHarrison Primary Care Provider Leona vailable Arpit ENVIRONMENTAL ECONOMIST-[facility] Chronic Care Management U navailable Summary Purpose DataExchange Insurance Providers Payer name Policy type / Coverage type Covered libertarian ID Effective Begin Date Effective End Date Medicare [place] Medicare Part B [id number] Unknown Unknown Medicaid [place] Medicare Part B [id number] Unknown Unknown Family history Sister Brittany Suggs [...] Unknown Prison 09/03/[address]: 9670645 Non-Smoker / No History of Smoking 09/02/[address]: 690919668 No Alcohol Consum ption 09/02/2020 Allergies, Adverse Reactions, Alerts Substance Reaction Codes Entered Date Inactivated Date Status * NO KNOWN FOOD ALLERGIES Ymwqosy6707/13/2023No Inactive DateActiveLISINOPRILRxNorm: 1590827No Inactive DateActiveMetformin DGeFisvnae16/28/2020No Inactive DateActive* NO KNOWN ENVIRONMENTAL TTSHLPSMFVpyakog54/27/2024No Inactive DateActive Problems Condition Codes Effective Dates Condition St atus Coronary artery disease invo lving [facility] coronary artery of [facility] heart, angina presence unspecified ICD-10: I25.10 ICD-9: 414.010/ctiveMajor depression, recurrentICD-10: F33.9 ICD-9: 296.3002/ctiveConstipation by delayed colonic transitICD-10: K59.01 ICD-9: 564.0101ctiveDiabetic neuropathy associated with type 2 diabetes mellitusICD-10: E11.40 ICD-9: 250.6001/ctiveHx of deep venous thrombosisICD-10: Z86.718 ICD-9: V12.5101ctiveOnychogryposisICD-10: L60.2 ICD-9: 703.801/ctiveType 2 diabetes mellitus with diabetic polyneuropathy, with long-term current use of insulinICD-10: E11.42 ICD-9: 250.60006/15/2023ctiveHypertensive heart disease without heart failure ICD-10: I11.9 ICD-9: 402.9012/ctiveReducible umbilical herniaICD-10: K42.9 ICD-9: 553.111/ctiveBMI 60.0-69.9, adultICD-10: Z68.44 ICD-9: V85.4410/ctiveCandidal intertrigoICD-10: B37.2 ICD-9: 112.310/ctiveHyperlipidemia associated with type 2 diabetes mellitusICD-10: E11.69 ICD-9: 250.8010/ctiveHyperlipidemia, unspecifiedICD-10: E78.5 ICD-9: 272.410/ctiveStage 2 chronic 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ICD-10: E11.22 ICD-9: 250.4010/ctiveInappropriate sexual behaviorICD-10: Z72.89 ICD-9: 312.8910/ctiveLearning disabilityICD-10: F81.9 ICD-9: 315.210/ctiveOther termination clerk (current) drug therapyICD-10: Z79.899 ICD-9: V58.6910ctiveRecurrent major [...] 345.9011/ctiveCellulitisICD-10: L03.90 ICD-9: 682.910/ctiveHypercoagulable stateICD-10: D68.59 ICD-9: 289.8109/ctivePVD (peripheral vascular disease)ICD-10: I73.9 ICD-9: 443.909/27/2022ActiveDepressionICD-10: F32.9 ICD-9: 87245/2ResolvedDVT (deep venous thrombosis)ICD-10: I82.409 ICD-9: 453.4009esolvedEncounter for immunizationICD-10: Z23 ICD-9: V03.89092ResolvedLong term (current) use of insulinICD-10: Z79.4 02/10/2022esolvedMuscular painICD-10: M79.10 ICD-9: 729.109esolvedDandruff in adultICD-10: L21.0 ICD-9: 690.1802ActiveHypertension associated with diabetesICD-10: E11.59 ICD-9: 250.8002ResolvedHistory of anemia due to CKDICD-10: N18.9 ICD-9: 585.9072ActiveStage 2 chronic kidney diseaseICD-10: N18.2 ICD-9: 585.2072ActiveGout due to renal impairmentICD-10: M10.30 ICD-9: 274.10062ActiveSkin tagICD-10: L91.8 ICD-9: 701.9111ActiveCallus of heelICD-10: L84 ICD-9: 310361ActiveImpacted cerumen, left earICD-10: H61.22 ICD-9: 380.4081ActiveContact with and (suspected) exposure to covid-19 ICD-10: Z20.822 ICD-9: V01.7908esolvedOther infective acute otitis externa of left ear ICD-10: H60.392 ICD-9: 380.1008esolvedScrotal skin lesionICD-10: N50.9 ICD-9: 608.908esolvedAnemia due to stage 3b chronic kidney diseaseICD- 10: N18.32 ICD-9: 285.2105esolvedChronic kidney disease, stage 3 unspecifiedICD- 10: N18.3004/1ResolvedContact with and (suspected) exposure to other viral communicable diseasesICD-10: Z20.828 ICD-9: V01.79021ResolvedHyperhidrosis of palmsICD-10: L74.512 ICD-9: 705.4963LmgwdpAeewrkcdRosjsdw31/28/2020ActiveDiabetes mellitus Type 4Ciavvxz50/28/2020ActiveAnemia in chronic kidney diseaseICD-10: D63.1 02/12/2020ResolvedHyperlipidemia, unspecifiedICD-10: E78.Resolved Medications Medication Codes Instructions Start Date Stop Date Status Fill Instructions rosuvastatin 40 mg tablet RxNorm: 176744 Take 1 Tablet(s) Oral QPM every evening 07/13/19 24 No Stop Date Active ezetimibe 10 mg tablet RxNorm: 617686 Take 1 Tablet(s) Oral QD 07/13/19 24 No Stop Date Active bisacodyl 10 mg rectal suppository RxNorm: 563458 Insert 1 Suppository Rectal QD as needed 07/13/19 24 No Stop Date Active polyethylene glycol 3350 17 gram/dose oral powder RxNorm: 985847 Take 17 Gram(s) Oral BID as needed mix in 4-8ox water 07/13/19 24 No Stop Date Active ketoconazole 2 % shampoo RxNorm: 304554 Apply 1 Application Topical UD as directed 07/13/19 24 No Stop Date Active aripiprazole 15 mg tablet RxNorm: 830022 Take 1/2 Tablet(s) Oral QD 07/13/19 24 No Stop Date Active Ozempic 1 mg/dose (4 mg/3 mL) subcutaneous pen injector RxNorm: 1616179 Inject 1 Milligram(s) Subcutaneous QW once a week 07/13/19 24 No Stop Date Active Guaifenesin AC 10 mg-100 mg/5 mL oral liquid RxNorm: 706020 Take 10 Milliliter(s) Oral Q4H every four hours as needed 07/13/19 24 No Stop Date Active isosorbide mononitrate ER 60 mg tablet,extended release 24 hr RxNorm: 789878 Take 1 Tablet(s) Oral QD 07/13/19 24 No Stop Date Active ammonium lactate 12 % topical cream RxNorm: 159523 Apply 1 Application Topical BID 07/13/19 24 No Stop Date Active hydrocortisone 2.5 % topical cream RxNorm: 100801 Apply 1 Application Topical BID as needed 07/13/19 24 No Stop Date Active rosuvastatin 20 mg sprinkle capsule RxNorm: 1090885 Take 1 Capsule(s) Oral QD 07/13/19 24 No Stop Date Active Vascepa 1 gram capsule RxNorm: 5984480 Take 2 Capsule(s) Oral BID 07/13/19 24 No Stop Date Active venlafaxine ER 75 mg capsule,extended release 24 hr RxNorm: 404165 Take 3 Capsule(s) Oral QD 07/13/19 24 No Stop Date Active Basaglar KwikPen U-100 Insulin 100 unit/mL (3 mL) subcutaneous RxNorm: 6598702 Inject 30U SubQ twice daily 07/07/19 24 025 Active Please dispense one month supply. Basaglar KwikPen U-100 Insulin 100 unit/mL (3 mL) subcutaneous RxNorm: 7758016 Inject 30U SubQ twice daily 07/07/19 24 024 Inactive Please dispense one month supply. pregabalin 150 mg capsule RxNorm: 641238 Take 1 Capsule(s) Oral QHS every night at bedtime 07/05/19 24 024 Active pregabalin 150 mg capsule RxNorm: 643075 Take 1 Capsule(s) Oral QHS every night at bedtime 07/05/19 24 024 Inactive polyethylene glycol 3350 17 gram/dose oral powder RxNorm: 462523 Take 1 Packet Oral QD as needed (1 packet = 17g) mix with 4-8oz of liquid 06/15/19 24 024 Inactive bisacodyl 10 mg rectal suppository RxNorm: 812116 Insert one suppository per rectum once daily as needed for constipation 06/15/19 24 024 Inactive bisacodyl 10 mg rectal suppository RxNorm: 870199 Insert one suppository per rectum once daily as needed for constipation 06/15/19 24 024 Inactive pregabalin 100 mg capsule RxNorm: 045164 Take 1 Capsule(s) Oral QAM every morning 04/27/20 024 Inactive Levemir FlexPen 100 unit/mL (3 mL) solution subcutaneous insulin pen RxNorm: 065803 Inject 30 Unit(s) Subcutaneous BID 04/27/20 23 024 Inactive rosuvastatin 40 mg tablet RxNorm: 297605 Take 1 Tablet(s) Oral QPM every evening 04/16/20 024 Inactive D/C rosuvastatin 20mg venlafaxine ER 75 mg capsule,extended release 24 hr RxNorm: 990503 Take 3 Capsule(s) Oral QD 04/14/20 023 Inactive pregabalin 100 mg capsule RxNorm: 463399 Take 1 Capsule(s) Oral QAM every morning [...] meter clotrimazole 1 % topical cream RxNorm: 465777 Take apply topically to abdominal folds twice daily for 14 days 03/12/20 024 Inactive Ozempic 1 mg/dose (4 mg/3 mL) subcutaneous pen injector RxNorm: 2767449 Inject 1 Milligram(s) Subcutaneous QW once a week 03/11/20 23 023 Inactive rosuvastatin 20 mg tablet RxNorm: 662528 Take 1 Tablet(s) Oral QD 02/26/20 023 Inactive d/c pravastatin 80mg Ozempic 1 mg/dose (4 mg/3 mL) subcutaneous pen injector RxNorm: 5532870 Inject 1 Milligram(s) Subcutaneous QW once a week 02/20/20 23 023 Inactive pregabalin 150 mg capsule RxNorm: 851537 Take 1 Capsule(s) Oral HS at bed time 02/19/20 23 023 Inactive pregabalin 100 mg capsule RxNorm: 477549 Take 1 Capsule(s) Oral QAM every morning 02/18/20 23 023 Inactive venlafaxine ER 75 mg capsule,extended release 24 hr RxNorm: 715489 Take 3 Capsule(s) Oral QD 02/04/20 23 023 Inactive FreeStyle Chema 2 Sensor kit RxNorm: use as directed 02/04/20 23 023 Inactive FreeStyle Chema 2 Sensor kit RxNorm: use as directed 02/04/20 23 024 Inactive fluconazole 150 mg tablet RxNorm: 523769 Take 1 Tablet(s) Oral on day 3 and on day 6 02/03/20 23 024 Active chlorthalidone 25 mg tablet RxNorm: 104876 Take 1 Tablet(s) Oral QAM every morning 02/03/20 23 No Stop Date Active venlafaxine ER 150 mg capsule,extended release 24 hr RxNorm: 052690 Take 1 Capsule(s) Oral QD 02/03/20 23 023 Inactive acetaminophen 500 mg tablet RxNorm: 257498 1 TABLET ORALLY 3 TIMES DAILY (MAX APAP:4GM/24HR) 12/15/19 23 023 Inactive potassium chloride ER 20 mEq tablet,extended release RxNorm: 312107 Take 1 Tablet(s) Oral BID 12/09/19 23 024 Inactive d/c 20mEq once daily (sent from hospital) clotrimazole 1 % topical cream RxNorm: 569126 apply 1g topically to top of feet and in between toes BID 12/09/19 23 023 Inactive nystatin 100,000 unit/gram topical powder RxNorm: 670392 APPLY TO AFFECTED AREAS TOPICALLY 2 TIMES DAILY 11/21/19 23 024 Inactive Nystop 100,000 unit/gram topical powder RxNorm: 223228 Apply to abd folds, under breasts and L side of groin Topical BID x 14 days, then BID PRN 11/20/19 23 023 Inactive dx: yeast dermatitis Bengay Ultra Strength 4 %-30 %-10 % topical cream RxNorm: 653020 Apply 1 Gram(s) Topical QID PRN to feet and legs for neuropathic pain 11/11/19 024 Active hydrocortisone 2.5 % topical cream RxNorm: 607559 Apply 1/2 Gram(s) Topical BID as needed 11/10/19 024 Inactive clotrimazole 1 % topical cream RxNorm: 623544 Apply 1/2 Gram(s) Topical BID Apply to affected areas of groin, periarea, and abdominal topically 2 times daily 11/10/19 023 Inactive Humulin R U-500 (Concentrated) Insulin 500 unit/mL subcutaneous soln RxNorm: 721375 Inject 100 Unit(s) Subcutaneous TID 10/07/19 024 Inactive Levemir FlexPen 100 unit/mL (3 mL) solution subcutaneous insulin pen RxNorm: 147023 Inject 30 Unit(s) Subcutaneous BID 10/07/19 023 Inactive Ozempic 0.25 mg or 0.5 mg (2 mg/3 mL) subcutaneous pen injector RxNorm: 4988725 Inject 1/2 Milligram(s) Subcutaneous QW once a week 10/07/19 024 Inactive aripiprazole 15 mg tablet RxNorm: 663169 1/2 TAB (7.5MG) ORALLY DAILY (DX:MAJOR DEPRESSIVE DISORDER) 09/23/19 023 Inactive Lancets,Thin 28 gauge RxNorm: Use 1 as directed QID 09/15/19 23 024 Inactive Accu-Chek Guide test strips RxNorm: Use 1 Test Strip QID 09/15/19 023 Inactive ok to substitute with any covered alternative test strip torsemide 20 mg tablet RxNorm: 072147 Take 1 Tablet(s) Oral BID 09/09/19 024 Inactive d/c once daily dosing carvedilol 25 mg tablet RxNorm: 637440 Take 1 Tablet(s) Oral QD 08/25/19 024 Inactive pregabalin 150 mg capsule RxNorm: 202064 1 Capsule(s) Oral HS at bed time 08/18/19 23 023 Inactive pregabalin 100 mg capsule RxNorm: 798643 1 Capsule(s) Oral QAM every morning 08/18/19 23 023 Inactive carvedilol 25 mg tablet RxNorm: 468434 1 Tablet(s) Oral QD 07/28/19 23 023 Inactive lisinopril 20 mg tablet RxNorm: 034387 Give 1 Tablet(s) Oral QD 07/28/19 23 023 Inactive Lyrica 150 mg capsule RxNorm: 721135 Take 1 Capsule(s) Oral QHS every night at bedtime 07/19/19 023 Inactive d/c 100mg dose Diflucan 150 mg tablet RxNorm: 065383 Take 1 Tablet(s) Oral QD repeat on day 3 and 6 07/19/19 023 Inactive pregabalin 100 mg capsule RxNorm: 077752 Take 1 Capsule(s) Oral QAM every morning 07/19/19 023 Inactive gatifloxacin 0.5 % eye drops RxNorm: 064629 Instill 1 Drop(s) as directed TID Instill 1 drop in to affected eye(s) starting 1 day prior to surgery and continue until gone (do not exceed 4 weeks). 07/13/19 023 Inactive carvedilol 25 mg tablet RxNorm: 454777 2 Tablet(s) Oral BID 07/13/19 23 023 Inactive Humulin R Regular U-100 Insulin 100 unit/mL injection solution RxNorm: 167027 85 Unit(s) Injection TID 07/13/19 23 023 Inactive ketorolac 0.5 % eye drops RxNorm: 455137 Instill 1 Drop(s) as directed QID Instill 1 drop into affected eye(s) 4 times daily starting 1 day prior to surgery and continue until gone (do not exceed 4 weeks). 07/13/19 23 023 Inactive Diflucan 150 mg tablet RxNorm: 383790 Take 1 Tablet(s) Oral QD repeat on day 3 and 6 02 023 Inactive Accu-Chek Guide test strips RxNorm: Use 1 Test Strip QID Use 1 test strip to monitor blood glucose 4 times daily and as needed. Dx:E11.42. 06/23/19 023 Inactive ok to substitute with any covered alternative test strip dextromethorphan-gu aifenesin 10 mg-100 mg/5 mL oral liquid RxNorm: 659854 Take 10 Milliliter(s) Oral every 4 hours as needed for cough 06/19/19 023 Inactive dextromethorphan-gu aifenesin 10 mg-100 mg/5 mL oral liquid RxNorm: 812109 Take 10 Milliliter(s) Oral every 4 hours as needed for cough 06/19/19 023 Inactive Lyrica 150 mg capsule RxNorm: 430381 Take 1 Capsule(s) Oral QHS every night at bedtime 06/18/19 023 Inactive d/c 100mg dose aripiprazole 15 mg tablet RxNorm: 590814 1/2 TAB (7.5MG) ORALLY DAILY (DX:MAJOR DEPRESSIVE DISORDER) 06/05/19 023 Inactive pregabalin 100 mg capsule RxNorm: 559958 1 Capsule(s) Oral QAM every morning 06/02/19 023 Inactive Banophen 50 mg capsule RxNorm: 2806801 Take 1 Capsule(s) Oral Q6H every 6 hours as needed 05/19/19 23 No Stop Date Active Novolog Flexpen U-100 Insulin aspart 100 unit/mL (3 mL) subcutaneous RxNorm: 0485807 Inject 10 Unit(s) Subcutaneous QHS every night at bedtime with nighttime snack 04/08/20 022 Inactive Novolog Flexpen U-100 Insulin aspart 100 unit/mL (3 mL) subcutaneous RxNorm: 2237436 Inject 42 Unit(s) Subcutaneous TID in addition to sliding scale 04/08/20 022 Inactive d/c 36u albuterol sulfate HFA 90 mcg/actuation aerosol inhaler RxNorm: 8630624 Take 2 Puff(s) Inhalation Q4H every four hours as needed as needed for SOB, cough, or wheezing 04/07/20 030 Active Banophen 50 mg capsule RxNorm: 4376643 Take 1 Capsule(s) Oral Q6H every 6 hours as needed 04/06/20 023 Inactive diphenhydramine 50 mg tablet RxNorm: 2433842 Take 1 Tablet(s) Oral Q6H every 6 hours as needed 04/06/20 022 Inactive diphenhydramine 50 mg tablet RxNorm: 7859512 1 Tablet(s) Oral Q6H every 6 hours as needed 04/06/20 022 Inactive Abilify 15 mg tablet RxNorm: 479996 1/2 Tablet(s) Oral QD 03/10/20 023 Inactive Shingrix (PF) 50 mcg/0.5 mL intramuscular suspension, kit RxNorm: 5253701 Administer 1/2 Milliliter(s) Intramuscular QD one time shingrix step 2 ( step 1 given 11/04/21) WITH needle - Nursing please administer upon arrival and once administered post a bridge message with date of administration, instructional technology facilitator, expiration date, and lot# so we can update [facility] 02/18/20 22 022 Inactive dispense with needle Shingrix (PF) 50 mcg/0.5 mL intramuscular suspension, kit RxNorm: 0699086 Administer 1/2 Milliliter(s) Intramuscular QD one time shingrix step 2 ( step 1 given 11/04/21) WITH needle - Nursing please administer upon arrival and once administered post a bridge message with date of administration, instructional technology facilitator, expiration date, and lot# so we can update [facility] 02/18/20 22 022 Inactive dispense with needle polyethylene glycol 3350 17 gram/dose oral powder RxNorm: 369643 Take 17=1 capful Gram(s) Oral QD mix with 4-8oz of liquid 01/08/20 023 Inactive take this in addition to BID prn order Lyrica 100 mg capsule RxNorm: 538074 Take 1 Capsule(s) Oral QAM every morning 01/08/20 22 022 Inactive d/c 50mg dose acetaminophen 500 mg tablet RxNorm: 638557 Take 1 Tablet(s) Oral TID 01/08/20 22 022 Inactive d/c PRN order Lyrica 150 mg capsule RxNorm: 140386 Take 1 Capsule(s) Oral QHS every night at bedtime 01/08/20 22 023 Inactive d/c 100mg dose Abilify 5 mg tablet RxNorm: 911100 Take 1 Tablet(s) Oral QD take 1 tab po QD #30 refill 5 dx: MDD 12/12/19 22 022 Inactive Abilify 5 mg tablet RxNorm: 108484 Take 1 Tablet(s) Oral QD take 1 tab po QD #30 refill 5 dx: MDD 12/12/19 22 022 Inactive Novolog Flexpen U-100 Insulin aspart 100 unit/mL (3 mL) subcutaneous RxNorm: 0393285 Inject 42 Unit(s) Subcutaneous TID in addition to sliding scale 12/10/19 22 Inactive d/c 36u chlorthalidone 25 mg tablet RxNorm: 997541 Take 1 Tablet(s) Oral QAM every morning 12/10/19 22 023 Inactive pregabalin 50 mg capsule RxNorm: 047023 Take 1 Capsule(s) Oral QAM every morning 11/12/19 22 022 Inactive tetanus-diphtheria toxoids-Td 2 Lf unit-2 Lf unit/0.5 mL IM suspension RxNorm: 139 Take 0.5 Miscellaneous Intramuscular 11/12/19 22 022 Inactive need tdap - nursing to administer upon arrival pregabalin 50 mg capsule RxNorm: 118091 Take 1 Capsule(s) Oral QAM every morning 10/16/19 22 022 Inactive pregabalin 50 mg capsule RxNorm: 015533 Take 1 Capsule(s) Oral QAM every morning 10/16/19 22 022 Inactive pregabalin 50 mg capsule RxNorm: 326970 1 Capsule(s) Oral QAM every morning 10/15/19 22 022 Inactive Shingrix (PF) 50 mcg/0.5 mL intramuscular suspension, kit RxNorm: 1328140 Administer 1/2 Milliliter(s) Intramuscular one time Nursing please administer upon arrival and once administered post a bridge message with date of administration, instructional technology facilitator, expiration date, and lot# so we can update [facility]. 10/09/19 22 022 Inactive shingrix step 1 Shingrix (PF) 50 mcg/0.5 mL intramuscular suspension, kit RxNorm: 0285013 Administer 1/2 Milliliter(s) Intramuscular one time Nursing please administer upon arrival and once administered post a bridge message with date of administration, instructional technology facilitator, expiration date, and lot# so we can update [facility]. 10/09/19 22 022 Inactive shingrix step 1 cholecalciferol (vitamin D3) 1,250 mcg (50,000 unit) capsule RxNorm: 662605 Take 1 Capsule(s) Oral QW once a [...] aspart 100 unit/mL (3 mL) subcutaneous RxNorm: 9019379 Inject 10 Unit(s) Subcutaneous QHS every night at bedtime with nighttime snack 10/08/19 22 Inactive Shingrix (PF) 50 mcg/0.5 mL intramuscular suspension, kit RxNorm: 8796747 ADMINISTER 2-DOSE SERIES PER CDC GUIDELINES 10/08/19 22 Active Shingrix (PF) 50 mcg/0.5 mL intramuscular suspension, kit RxNorm: 1636988 ADMINISTER 2-DOSE SERIES PER CDC GUIDELINES 10/08/19 22 Inactive Novolog Flexpen U-100 Insulin aspart 100 unit/mL (3 mL) subcutaneous RxNorm: 3895884 Inject 36 Unit(s) Subcutaneous TID in addition to sliding scale 10/08/19 22 07/25/2 022 Inactive Novofine Autocover 30 gauge x 1/3 needle RxNorm: Use 1 Miscellaneous UD as directed Use 1 needle as directed to administer insulin 5 times a day Dx:E11.42. 10/03/19 Inactive ok to substitute with any covered alternative pen needle benzoyl peroxide 10 % topical cleanser RxNorm: 132272 Apply 1 Application Topical QD apply to face, wash rinse and dry once daily (may change to QOD if drying) 08/19/19 022 Inactive (%covered by insurance) #60ml refill 11 dx: acne benzoyl peroxide 10 % topical cleanser RxNorm: 251246 Apply 1 Application Topical QD apply to face, wash rinse and dry once daily (may change to QOD if drying) 08/19/19 22 022 Inactive (%covered by insurance) #60ml refill 11 dx: acne benzoyl peroxide 10 % topical cleanser RxNorm: 198962 Apply 1 Application Topical QD apply to face, wash rinse and dry once daily (may change to QOD if drying) 08/19/19 022 Inactive (%covered by insurance) #60ml refill 11 dx: acne Lyrica 50 mg capsule RxNorm: 048009 Take 1 Capsule(s) Oral QAM every morning Take 1 capsule by mouth once daily 08/19/19 22 022 Inactive benzoyl peroxide 10 % topical cleanser RxNorm: 459543 Apply 1 Application Topical QD apply to face, wash rinse and dry once daily (may change to QOD if drying) 08/19/19 022 Inactive (%covered by insurance) #60ml refill 11 dx: acne Lyrica 100 mg capsule RxNorm: 234734 Take 1 Capsule(s) Oral QHS every night at bedtime Take 1 capsule by mouth once daily at bedtime 08/19/19 22 022 Inactive Lyrica 100 mg capsule RxNorm: 061784 Take 1 Capsule(s) Oral QHS every night at bedtime Take 1 capsule by mouth once daily at bedtime 08/16/19 22 022 Inactive Lyrica 50 mg capsule RxNorm: 575740 Take 1 Capsule(s) Oral QAM every morning Take 1 capsule by mouth once daily 08/16/19 22 022 Inactive Levemir FlexTouch U-100 Insulin 100 unit/mL (3 mL) subcutaneous pen RxNorm: 577153 Inject 86 Unit(s) Subcutaneous BID 08/05/19 22 022 Inactive d/c 83units BID Lyrica 100 mg capsule RxNorm: 530386 Take 1 Capsule(s) Oral QHS every night at bedtime Take 1 capsule by mouth once daily at bedtime 07/14/19 22 022 Inactive Lyrica 50 mg capsule RxNorm: 097004 Take 1 Capsule(s) Oral QAM every morning Take 1 capsule by mouth once daily 07/14/19 22 022 Inactive Levemir FlexTouch U-100 Insulin 100 unit/mL (3 mL) subcutaneous pen RxNorm: 970715 Inject 83 Unit(s) Subcutaneous BID 07/08/19 22 [...] test strip hydralazine 50 mg tablet RxNorm: 951791 Take 1 Tablet(s) Oral QID 05/05/20 21 022 Inactive venlafaxine ER 225 mg tablet,extended release 24 hr RxNorm: 381710 Take 1 Tablet(s) Oral QD 05/05/20 21 Inactive venlafaxine ER 225 mg tablet,extended release 24 hr RxNorm: 755034 Take 1 Tablet(s) Oral QD 05/05/20 022 Inactive isosorbide mononitrate ER 30 mg tablet,extended release 24 hr RxNorm: 871962 Take 1 Tablet(s) Oral QD 05/05/20 024 Inactive hydralazine 50 mg tablet RxNorm: 571962 Take 1 Tablet(s) Oral QID 05/05/20 21 Inactive aspirin 81 mg tablet,delayed release RxNorm: 269840 Take 1 Tablet(s) Oral QD 03/31/20 022 Inactive Vitamin D2 1,250 mcg (50,000 unit) capsule RxNorm: 9230232 Take 1 Capsule(s) Oral QW once a week x 12 weeks 03/31/20 022 Inactive Vitamin D2 1,250 mcg (50,000 unit) capsule RxNorm: 3547713 Take 1 Capsule(s) Oral QW once a week 03/31/20 021 Inactive Zetia 10 mg tablet RxNorm: 946319 Take 1 Tablet(s) Oral QD 03/31/20 21 024 Inactive Zetia 10 mg tablet RxNorm: 960027 Take 1 Tablet(s) Oral QD 03/31/20 21 021 Inactive hydralazine 25 mg tablet RxNorm: 832579 Take 1 Tablet(s) Oral QID 03/31/20 021 Inactive hydralazine 25 mg tablet RxNorm: 159093 Take 1 Tablet(s) Oral QID 03/31/20 021 Inactive hydralazine 10 mg tablet RxNorm: 321748 Take 1 Tablet(s) Oral QID 03/03/20 021 Inactive cephalexin 500 mg tablet RxNorm: 824764 Take 1 Tablet(s) Oral QID 02/27/20 021 Inactive cephalexin 500 mg tablet RxNorm: 505216 Take 1 Tablet(s) Oral QID 02/27/20 021 Inactive lisinopril 40 mg tablet RxNorm: 015974 Take 1 Tablet(s) Oral QD 02/11/20 023 Inactive Eliquis 5 mg tablet RxNorm: 2257870 Take 1 Tablet(s) Oral BID 01/05/20 022 Inactive Eliquis 5 mg tablet RxNorm: 7740404 Take 2 Tablet(s) Oral QD 01/01/20 021 Inactive Lyrica 50 mg capsule RxNorm: 242911 Take 1 Capsule(s) Oral QAM every morning 12/24/19 021 Inactive Lyrica 100 mg capsule RxNorm: 363842 Take 1 Capsule(s) Oral QHS every night at bedtime 12/24/19 021 Inactive clotrimazole 1 % topical cream RxNorm: 858909 Apply to right foot and toes Topical BID 12/04/19 21 023 Inactive metoprolol succinate ER 200 mg tablet,extended release 24 hr RxNorm: 327953 Take 1 Tablet(s) Oral QD 12/04/19 21 023 Inactive ciprofloxacin 500 mg tablet RxNorm: 221709 Take 1 Tablet(s) Oral QD 11/30/19 21 021 Inactive DX ofloxacin otic drops Accu-Chek Guide test strips RxNorm: USE 1 TO CHECK GLUCOSE 4 TIMES DAILY AND NEEDED 11/15/19 21 023 Inactive Blood Glucose Test strips RxNorm: Use 1 Test Strip QID at PRN 11/05/19 21 023 Inactive E11.42 lisinopril 30 mg tablet RxNorm: 996938 Take 1 Tablet(s) Oral QD 10/30/19 21 021 Inactive lisinopril 20 mg tablet RxNorm: 749852 Take 1 Tablet(s) Oral QD 10/23/19 21 021 Inactive lisinopril 20 mg tablet RxNorm: 855576 Take 1 Tablet(s) Oral QD 10/23/19 21 021 Inactive lisinopril 10 mg tablet RxNorm: 521060 Take 1 Tablet(s) Oral QD 10/02/19 21 021 Inactive icosapent ethyl 1 gram capsule RxNorm: 8426082 Take 2 Capsule(s) (2 gm) Oral BID with meals 09/12/19 21 024 Inactive Okay to dispense one 2gm tab if you have that available. icosapent ethyl 1 gram capsule RxNorm: 9559831 Take 2 Capsule(s) Oral BID 09/12/19 21 021 Inactive Okay to dispense one 2gm tab if you have that available. amlodipine 10 mg tablet RxNorm: 556370 Take 1 Tablet(s) Oral QD 09/04/19 21 022 Inactive aspirin 81 mg tablet,delayed release RxNorm: 394258 Take 1 Tablet(s) Oral QD 09/04/19 21 021 Inactive Levemir FlexTouch U-100 Insulin 100 unit/mL (3 mL) subcutaneous pen RxNorm: 739283 Inject 150 Unit(s) Subcutaneous BID 09/04/19 21 022 Inactive venlafaxine ER 150 mg tablet,extended release 24 hr RxNorm: 810811 Take 1 Tablet(s) Oral QD 09/04/19 21 021 Inactive clotrimazole-betame thasone 1 %-0.05 % topical cream RxNorm: 632472 Apply to rash on red area on left abdomen/chest Topical BID 08/10/19 21 021 Inactive amlodipine 5 mg tablet RxNorm: 160919 Take 1 Tablet(s) Oral QD 07/31/19 Inactive cephalexin 500 mg tablet RxNorm: 991013 Take 1 Tablet(s) Oral BID BID - Twice Daily 07/31/19 21 021 Inactive Start 08/01/20 pantoprazole 40 mg tablet,delayed release RxNorm: 315774 Take 1 Tablet(s) Oral QAM every morning 07/08/19 022 Inactive senna 8.6 mg tablet RxNorm: 131517 Take 1 Tablet(s) Oral QD 07/08/19 022 Inactive carbamazepine 200 mg tablet RxNorm: 137001 Take 1 Tablet(s) Oral BID 07/08/19 022 Inactive clopidogrel 75 mg tablet RxNorm: 746690 Take 1 Tablet(s) Oral QD 07/08/19 021 Inactive Blood Glucose Test strips RxNorm: Use 1 Test Strip QID at PRN 07/08/19 Inactive E11.42 Novolog Flexpen U-100 Insulin aspart 100 unit/mL (3 mL) subcutaneous RxNorm: 8686687 Administer per sliding scale Milliliter(s) Subcutaneous TID 151-200: 10 u; 201-250: 20 u; 251-300: 30 u; 301-350: 40 u; 351-400: 50 u. 07/08/19 022 Inactive lisinopril 5 mg tablet RxNorm: 751058 Take 1 Tablet(s) Oral QD 07/08/19 021 Inactive Novolog Flexpen U-100 Insulin aspart 100 unit/mL (3 mL) subcutaneous RxNorm: 7417403 Inject 85 Unit(s) Subcutaneous TID 07/08/19 022 Inactive pravastatin 80 mg tablet RxNorm: 511744 Take 1 Tablet(s) Oral QHS every night at bedtime 07/08/19 023 Inactive clotrimazole 1 % topical cream RxNorm: 652074 Apply to bilateral groin areas Topical BID 07/08/19 21 022 Inactive metoprolol succinate ER 200 mg tablet,extended release 24 hr RxNorm: 018737 Take 1 Tablet(s) Oral QD 02 021 Inactive Vitamin D3 25 mcg (1,000 unit) tablet RxNorm: 159963 Take 1 Tablet(s) Oral QD 07/08/19 Inactive isosorbide dinitrate 30 mg tablet RxNorm: 683422 Take 1 Tablet(s) Oral QD 07/08/19 021 Inactive Levemir FlexTouch U-100 Insulin 100 unit/mL (3 mL) subcutaneous pen RxNorm: 750693 Inject 140 Unit(s) Subcutaneous BID 07/08/19 021 Inactive torsemide 20 mg tablet RxNorm: 670671 Take 1 Tablet(s) Oral QD 07/08/19 023 Inactive venlafaxine 75 mg tablet RxNorm: 821789 Take 1 Tablet(s) Oral QD 07/08/19 021 Inactive acetaminophen 500 mg tablet RxNorm: 920699 Take 1 Tablet(s) Oral TID as needed for headache 06/18/19 021 Inactive acetaminophen 500 mg tablet RxNorm: 502121 Take 1 Tablet(s) Oral TID as needed for headache 06/18/19 021 Inactive Lyrica 100 mg capsule RxNorm: 862558 Take 1 Capsule(s) Oral QHS every night at bedtime 06/11/19 021 Inactive Lyrica 50 mg capsule RxNorm: 117047 Take 1 Capsule(s) Oral QAM every morning 06/10/19 021 Inactive hydrocortisone 2.5 % topical cream RxNorm: 702612 Apply to bilateral groin creases Topical BID 05/15/20 20 021 Inactive clotrimazole 1 % topical cream RxNorm: 919638 Apply to bilateral groin areas Topical BID 05/15/20 20 021 Inactive Lyrica 50 mg capsule RxNorm: 613454 Take 1 Capsule(s) Oral QAM every morning 05/14/20 20 Inactive Lyrica 100 mg capsule RxNorm: 149452 Take 1 Capsule(s) Oral QHS every night [...] Inactive Nystop 100,000 unit/gram topical powder RxNorm: 268122 Apply to abd folds, under breasts and L side of groin Topical BID x 14 days, then BID PRN 04/08/20 20 Inactive dx: yeast dermatitis Lyrica 100 mg capsule RxNorm: 756717 Take 1 Capsule(s) Oral QHS every night at bedtime 03/13/20 20 Inactive Lyrica 50 mg capsule RxNorm: 100823 Take 1 Capsule(s) Oral QAM every morning 03/13/20 20 Inactive ketoconazole 2 % shampoo RxNorm: 032491 Apply Topical two times a week with showers 03/11/20 20 024 Inactive cholecalciferol (vitamin D3) 50 mcg (2,000 unit) tablet RxNorm: 148382 Take 1 Tablet(s) Oral QD 03/11/20 20 021 Inactive Zetia 10 mg tablet RxNorm: 900745 Take 1 Tablet(s) Oral QD 03/07/20 20 021 Inactive Zetia 10 mg tablet RxNorm: 231250 Take 1 Tablet(s) Oral QD 03/07/20 20 Inactive Lyrica 50 mg capsule RxNorm: 541064 Take 1 Capsule(s) Oral QAM every morning 02/15/20 20 Inactive Lyrica 100 mg capsule RxNorm: 797495 Take 1 Capsule(s) Oral QHS every night at bedtime 02/15/20 20 Inactive Lyrica 100 mg capsule RxNorm: 868755 Take 1 Capsule(s) Oral QHS every night at bedtime 02/15/20 20 Inactive Lyrica 50 mg capsule RxNorm: 135069 Take 1 Capsule(s) Oral QAM every morning 02/15/20 Inactive metoprolol succinate ER 200 mg tablet,extended release 24 hr RxNorm: 761142 Take 1 Tablet(s) Oral QD 08/11 Activeloperamide 2 mg capsuleRxNorm: 955848Uhdt 1 Capsule(s) Oral QID as needed 06/12/2021ctivehydralazine 50 mg tabletRxNorm: 221496Them 1 Tablet(s) Oral QID 08/11/2022ctivevenlafaxine ER 75 mg capsule,extended release 24 hrRxNorm: 328132Thns 3 Capsule(s) Oral QD/Inactivepolyethylene glycol 3350 17 gram/dose oral powderRxNorm: 519585Tkxi 17=1 capful Gram(s) Oral BID as needed mix with 4-8oz of tkqive60/Inactiveicosapent ethyl 1 gram capsuleRxNorm: 0776644Zoqh 2 Capsule(s) (2 gm) Oral BID with meals /InactiveOkay to dispense one 2gm tab if you have that available.Levemir FlexTouch U-100 Insulin 100 unit/mL (3 mL) subcutaneous pen RxNorm: 843933Psaskm 80 Unit(s) Subcutaneous BID/Inactive Novolog Flexpen U-100 Insulin aspart 100 unit/mL (3 mL) subcutaneousRxNorm: 4795707Yabezd 30 Unit(s) Subcutaneous TID with meals/Inactive Medication Administered No Medication Administered data Procedures Procedure Codes Date HEMOGLOBIN A1C LEVEL >9.0% CPT-4: 3046F SYS BP > OR = 140 CPT-4: G8753 07/15/2023 CUI BP LESS 90 CPT-4: G8754 07/15/2023 Vital Signs Date Vital 07/15/2023 Blood Pressure 1: 153/76 Code: 8480-6 Heart Rate 1: 72 bpm Code: 8867-4 Respiratory Rate: 16 bpm SpO2: 97% Temperature: 36.6 (C) / 97.9 (F) Reason For Visit No Reason For Visit data Encounters Encounter Performer Location Location Address Codes Cristiano e ([id number]) Home or Residence Vi sit Est Pt - Moderate Level, 40 mins Diagnosis: Coronary artery disease involving [facility] coronary artery of [facility] heart, angina presence unspecified[ICD10: I25.10] Diagnosis: Major depression, recurrent[ICD10: F33.9]Andressa ZhengThe [place] on [id number] [place] [id number]-6: [id number]/15/2023 Plan of Care Planned Activity Notes Codes Status Date Patient Education: Patient Medication Summary Lfcreltzo13/29/2024Patient Education: BgjgdujphGyulfohom79/29/2024ppointment: Sandra Clark WPtel: [address] [facility] [id number] [facility] Psych Follow Up12/09/2022ppointment: Tapan Shirley WPtel: [address] [place], [place] [id number] USTC10/26/2022Referral: [facility] WPtel: [phone], [address] [id number] USReferralRecords Sbxkyblx62/08/2023ppointment: Tapan Shirley WPtel: [address] [facility] [address] [id number] [facility]/08/11/2022ppointment: Tapan Shirley WPtel: [address] [facility] [address] [id number] [facility]/U02/28/2023Appointment: Tapan Shirley WPtel: [address] [facility] [address] [id number] USF/U02Referral: [facility] WPtel: [address] [facility] [address] [id number] FKOjswbwipXtstdevxz06/12/2022Referral: General CardiologyReferralCompleted 1Referral: General PsychologistReferralClosedReferral: General PsychiatristReferralPatient/Family [...] Sister Jyotsna involved in his care cell# [phone] Guardian: Giulia (tapan met in person 09/01/21), now has Lexii (same group as giulia)Lab Schedule: /September*September (CBC with diff, CMP, A1c) (Novemebr: CBC, CMP, A1c, Lipids, VitD) 10/08/2023 Major depression, recurrent consider BHI Coronary artery disease involving [facility] coronary artery of [facility] heart, angina presence unspecified some edema, awaiting TEDs.07/15/2023
--- OUTSIDE RECORDS SUMMARY | 2023-11-03 10:22 | XMS_ITS | CCD ---
Author Name Arpit ARLENBacilio CanalesAniliris feliberto Address [address] [facility] [address] [place] [address] Phone Organization [facility] Phone Care Team Providers Care Geography Faculty Member Name Role Phone Harrison Durham Primary Care Provider Leona vailable Harrison Durham Chronic Care Management U navailable Summary Purpose DataExchange Insurance Providers Payer name Policy type / Coverage type Covered libertarian ID Effective Begin Date Effective End Date [place] Part B [id number] Unknown Unknown [place] B [id number] Unknown Unknown Family history Sister Brittany Suggs [...] Unknown [facility] 09/03/[address]: 2496192 Non-Smoker / No History of Smoking 09/02/[address]: 122138911 No Alcohol Consum ption 09/02/2020 Allergies, Adverse Reactions, Alerts Substance Reaction Codes Entered Date Inactivated Date Status LISINOPRIL RxNorm: 5464787No Inactive DateActiveMetformin YNzTfwdgje82/28/2020No Inactive DateActive Problems Condition Codes Effective Dates Condition St atus Constipation by delayed colonic transit ICD-10: K59.01 ICD-9: 564.01006/15/2023ctiveDiabetic neuropathy associated with type 2 diabetes mellitusICD-10: E11.40 ICD-9: 250.60006/15/2023ctiveHx of deep venous thrombosisICD-10: Z86.718 ICD-9: V12.51006/15/2023ctiveOnychogryposisICD-10: L60.2 ICD-9: 703.801ctiveType 2 diabetes mellitus with diabetic polyneuropathy, with long-term current use of insulinICD-10: E11.42 ICD-9: 250.6001ctiveHypertensive heart disease without heart failure ICD-10: I11.9 ICD-9: 402.9012ctiveCoronary artery disease involving three affiliated coronary artery of three affiliated heart, angina presence unspecifiedICD-10: I25.10 ICD-9: 414.0111/ctiveReducible umbilical herniaICD-10: K42.9 ICD-9: 553.111ctiveBMI 60.0-69.9, adultICD-10: Z68.44 ICD-9: V85.4410ctiveCandidal intertrigoICD-10: B37.2 ICD-9: 112.310ctiveHyperlipidemia associated with type 2 diabetes mellitusICD-10: E11.69 ICD-9: 250.8010/ctiveHyperlipidemia, unspecifiedICD-10: E78.5 ICD-9: 272.410/ctiveStage 2 chronic 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ICD-10: E11.22 ICD-9: 250.4010ctiveInappropriate sexual behaviorICD-10: Z72.89 ICD-9: 312.8910ctiveLearning disabilityICD-10: F81.9 ICD-9: 315.210/ctiveMajor depression, recurrentICD-10: F33.9 ICD-9: 296.3010/ctiveOther termite exterminator helper (current) drug therapyICD-10: Z79.899 ICD-9: V58.6910/ctiveRecurrent major depressive disorder, in partial remissionICD-10: F33.41 ICD-9: 296.3510/ctiveAnnual physical examICD-10: Z00.00 ICD-9: V70.009/19/2023ActiveEncounter for other specified special examinations ICD-10: Z01.89 [...] vascular disease)ICD-10: I73.9 ICD-9: 443.909/ctiveDepressionICD-10: F32.9 ICD-9: 09098/2ResolvedDVT (deep venous thrombosis)ICD-10: I82.409 ICD-9: 453.4009/esolvedEncounter for immunizationICD-10: Z23 ICD-9: V03.8909/2ResolvedLong term (current) use of insulinICD-10: Z79.4 02/10/2022esolvedMuscular painICD-10: M79.10 ICD-9: 729.109/esolvedDandruff in adultICD-10: L21.0 ICD-9: 690.1808/2ActiveHypertension associated with diabetesICD-10: E11.59 ICD-9: 250.8008/esolvedHistory of anemia due to CKDICD-10: N18.9 ICD-9: 585.907/2ActiveStage 2 chronic kidney diseaseICD-10: N18.2 ICD-9: 585.207/ctiveGout due to renal impairmentICD-10: M10.30 ICD-9: 274.1006/2ActiveSkin tagICD-10: L91.8 ICD-9: 701.911/1ActiveCallus of heelICD-10: L84 ICD-9: 49003/1ActiveImpacted cerumen, left earICD-10: H61.22 ICD-9: 380.408/ctiveContact with and (suspected) exposure to covid-19 ICD-10: Z20.822 ICD-9: V01.79081ResolvedOther infective acute otitis externa of left ear ICD-10: H60.392 ICD-9: 380.1008/esolvedScrotal skin lesionICD-10: N50.9 ICD-9: 608.908/esolvedAnemia due to stage 3b chronic kidney diseaseICD- 10: N18.32 ICD-9: 285.2105/esolvedChronic kidney disease, stage 3 unspecifiedICD- 10: N18.3004esolvedContact with and (suspected) exposure to other viral communicable diseasesICD-10: Z20.828 ICD-9: V01.7902/1ResolvedHyperhidrosis of palmsICD-10: L74.512 ICD-9: 705.0174WfgxpuDevmyzafLsbzryw08/28/2020ActiveDiabetes mellitus Type 9Lzgkjns37/28/2020ActiveAnemia in chronic kidney diseaseICD-10: D63.1 02/12/2020ResolvedHyperlipidemia, unspecifiedICD-10: E78.Resolved Medications Medication Codes Instructions Start Date Stop Date Status Fill Instructions bisacodyl 10 mg rectal suppository RxNorm: 916445 Insert one suppository per rectum once daily as needed for constipation 06/15/19 024 Inactive bisacodyl 10 mg rectal suppository RxNorm: 071918 Insert one suppository per rectum once daily as needed for constipation 06/15/19 024 Inactive pregabalin 100 mg capsule RxNorm: 485021 Take 1 Capsule(s) Oral QAM every morning 04/27/20 23 024 Inactive Levemir FlexPen 100 unit/mL (3 mL) solution subcutaneous insulin pen RxNorm: 953194 Inject 30 Unit(s) Subcutaneous BID 04/27/20 23 024 Inactive rosuvastatin 40 mg tablet RxNorm: 384674 Take 1 Tablet(s) Oral QPM every evening 04/16/20 23 024 Inactive D/C rosuvastatin 20mg venlafaxine ER 75 mg capsule,extended release 24 hr RxNorm: 066244 Take 3 Capsule(s) Oral QD 04/14/20 23 023 Inactive pregabalin 100 mg capsule RxNorm: 837056 Take 1 Capsule(s) Oral QAM every morning [...] meter clotrimazole 1 % topical cream RxNorm: 201675 Take apply topically to abdominal folds twice daily for 14 days 03/12/20 024 Inactive Ozempic 1 mg/dose (4 mg/3 mL) subcutaneous pen injector RxNorm: 5493806 Inject 1 Milligram(s) Subcutaneous QW once a week 03/11/20 023 Inactive rosuvastatin 20 mg tablet RxNorm: 889334 Take 1 Tablet(s) Oral QD 02/26/20 23 023 Inactive d/c pravastatin 80mg Ozempic 1 mg/dose (4 mg/3 mL) subcutaneous pen injector RxNorm: 7489485 Inject 1 Milligram(s) Subcutaneous QW once a week 02/20/20 23 023 Inactive pregabalin 150 mg capsule RxNorm: 611379 Take 1 Capsule(s) Oral HS at bed time 02/19/20 23 023 Inactive pregabalin 100 mg capsule RxNorm: 123567 Take 1 Capsule(s) Oral QAM every morning 02/18/20 023 Inactive FreeStyle Chema 2 Sensor kit RxNorm: use as directed 02/04/20 23 024 Inactive venlafaxine ER 75 mg capsule,extended release 24 hr RxNorm: 876477 Take 3 Capsule(s) Oral QD 02/04/20 23 023 Inactive FreeStyle Chema 2 Sensor kit RxNorm: use as directed 02/04/20 23 023 Inactive fluconazole 150 mg tablet RxNorm: 601219 Take 1 Tablet(s) Oral on day 3 and on day 6 02/03/20 23 024 Active chlorthalidone 25 mg tablet RxNorm: 977600 Take 1 Tablet(s) Oral QAM every morning 02/03/20 23 No Stop Date Active venlafaxine ER 150 mg capsule,extended release 24 hr RxNorm: 180255 Take 1 Capsule(s) Oral QD 02/03/20 23 023 Inactive acetaminophen 500 mg tablet RxNorm: 552840 1 TABLET ORALLY 3 TIMES DAILY (MAX APAP:4GM/24HR) 12/15/19 23 023 Inactive potassium chloride ER 20 mEq tablet,extended release RxNorm: 155723 Take 1 Tablet(s) Oral BID 12/09/19 23 024 Inactive d/c 20mEq once daily (sent from hospital) clotrimazole 1 % topical cream RxNorm: 630439 apply 1g topically to top of feet and in between toes BID 12/09/19 23 023 Inactive nystatin 100,000 unit/gram topical powder RxNorm: 003247 APPLY TO AFFECTED AREAS TOPICALLY 2 TIMES DAILY 11/21/19 23 024 Inactive Nystop 100,000 unit/gram topical powder RxNorm: 955261 Apply to abd folds, under breasts and L side of groin Topical BID x 14 days, then BID PRN 11/20/19 23 023 Inactive dx: yeast dermatitis Bengay Ultra Strength 4 %-30 %-10 % topical cream RxNorm: 177639 Apply 1 Gram(s) Topical QID PRN to feet and legs for neuropathic pain 11/11/19 23 024 Active hydrocortisone 2.5 % topical cream RxNorm: 715089 Apply 1/2 Gram(s) Topical BID as needed 11/10/19 23 024 Inactive clotrimazole 1 % topical cream RxNorm: 439488 Apply 1/2 Gram(s) Topical BID Apply to affected areas of groin, periarea, and abdominal topically 2 times daily 11/10/19 23 023 Inactive Humulin R U-500 (Concentrated) Insulin 500 unit/mL subcutaneous soln RxNorm: 275349 Inject 100 Unit(s) Subcutaneous TID 10/07/19 024 Inactive Ozempic 0.25 mg or 0.5 mg (2 mg/3 mL) subcutaneous pen injector RxNorm: 1737595 Inject 1/2 Milligram(s) Subcutaneous QW once a week 10/07/19 23 024 Inactive Levemir FlexPen 100 unit/mL (3 mL) solution subcutaneous insulin pen RxNorm: 359655 Inject 30 Unit(s) Subcutaneous BID 10/07/19 23 023 Inactive aripiprazole 15 mg tablet RxNorm: 333429 /2 TAB (7.5MG) ORALLY DAILY (DX:MAJOR DEPRESSIVE DISORDER) 09/23/19 23 023 Inactive Lancets,Thin 28 gauge RxNorm: Use 1 as directed QID 09/15/19 23 024 Inactive Accu-Chek Guide test strips RxNorm: Use 1 Test Strip QID 09/15/19 23 023 Inactive ok to substitute with any covered alternative test strip torsemide 20 mg tablet RxNorm: 717072 Take 1 Tablet(s) Oral BID 09/09/19 23 024 Inactive d/c once daily dosing carvedilol 25 mg tablet RxNorm: 090938 Take 1 Tablet(s) Oral QD 08/25/19 23 024 Inactive pregabalin 150 mg capsule RxNorm: 130075 1 Capsule(s) Oral HS at bed time 08/18/19 23 023 Inactive pregabalin 100 mg capsule RxNorm: 621182 1 Capsule(s) Oral QAM every morning 08/18/19 23 023 Inactive carvedilol 25 mg tablet RxNorm: 601783 1 Tablet(s) Oral QD 07/28/19 23 023 Inactive lisinopril 20 mg tablet RxNorm: 284417 Give 1 Tablet(s) Oral QD 07/28/19 23 023 Inactive Lyrica 150 mg capsule RxNorm: 118459 Take 1 Capsule(s) Oral QHS every night at bedtime 07/19/19 23 023 Inactive d/c 100mg dose Diflucan 150 mg tablet RxNorm: 285077 Take 1 Tablet(s) Oral QD repeat on day 3 and 6 07/19/19 23 023 Inactive pregabalin 100 mg capsule RxNorm: 554279 Take 1 Capsule(s) Oral QAM every morning 07/19/19 23 023 Inactive gatifloxacin 0.5 % eye drops RxNorm: 952335 Instill 1 Drop(s) as directed TID Instill 1 drop in to affected eye(s) starting 1 day prior to surgery and continue until gone (do not exceed 4 weeks). 07/13/19 23 023 Inactive carvedilol 25 mg tablet RxNorm: 091448 2 Tablet(s) Oral BID 07/13/19 23 023 Inactive Humulin R Regular U-100 Insulin 100 unit/mL injection solution RxNorm: 063184 85 Unit(s) Injection TID 07/13/19 23 023 Inactive ketorolac 0.5 % eye drops RxNorm: 463573 Instill 1 Drop(s) as directed QID Instill 1 drop into affected eye(s) 4 times daily starting 1 day prior to surgery and continue until gone (do not exceed 4 weeks). 07/13/19 023 Inactive Diflucan 150 mg tablet RxNorm: 374990 Take 1 Tablet(s) Oral QD repeat on day 3 and 6 06/30/19 023 Inactive Accu-Chek Guide test strips RxNorm: Use 1 Test Strip QID Use 1 test strip to monitor blood glucose 4 times daily and as needed. Dx:E11.42. 06/23/19 23 023 Inactive ok to substitute with any covered alternative test strip dextromethorphan-gu aifenesin 10 mg-100 mg/5 mL oral liquid RxNorm: 881031 Take 10 Milliliter(s) Oral every 4 hours as needed for cough 06/19/19 23 023 Inactive dextromethorphan-gu aifenesin 10 mg-100 mg/5 mL oral liquid RxNorm: 458683 Take 10 Milliliter(s) Oral every 4 hours as needed for cough 06/19/19 23 023 Inactive Lyrica 150 mg capsule RxNorm: 680014 Take 1 Capsule(s) Oral QHS every night at bedtime 06/18/19 23 023 Inactive d/c 100mg dose aripiprazole 15 mg tablet RxNorm: 939890 1/2 TAB (7.5MG) ORALLY DAILY (DX:MAJOR DEPRESSIVE DISORDER) 06/05/19 23 023 Inactive pregabalin 100 mg capsule RxNorm: 187662 1 Capsule(s) Oral QAM every morning 06/02/19 023 Inactive Banophen 50 mg capsule RxNorm: 6043115 Take 1 Capsule(s) Oral Q6H every 6 hours as needed 05/19/19 No Stop Date Active Novolog Flexpen U-100 Insulin aspart 100 unit/mL (3 mL) subcutaneous RxNorm: 3934914 Inject 10 Unit(s) Subcutaneous QHS every night at bedtime with nighttime snack 04/08/20 022 Inactive Novolog Flexpen U-100 Insulin aspart 100 unit/mL (3 mL) subcutaneous RxNorm: 5882134 Inject 42 Unit(s) Subcutaneous TID in addition to sliding scale 04/08/20 Inactive d/c 36u albuterol sulfate HFA 90 mcg/actuation aerosol inhaler RxNorm: 7650558 Take 2 Puff(s) Inhalation Q4H every four hours as needed as needed for SOB, cough, or wheezing 04/07/20 030 Active Banophen 50 mg capsule RxNorm: 2632286 Take 1 Capsule(s) Oral Q6H every 6 hours as needed 04/06/20 023 Inactive diphenhydramine 50 mg tablet RxNorm: 9316709 Take 1 Tablet(s) Oral Q6H every 6 hours as needed 04/06/20 022 Inactive diphenhydramine 50 mg tablet RxNorm: 0483966 1 Tablet(s) Oral Q6H every 6 hours as needed 04/06/20 022 Inactive Abilify 15 mg tablet RxNorm: 612928 1/2 Tablet(s) Oral QD 03/10/20 023 Inactive Shingrix (PF) 50 mcg/0.5 mL intramuscular suspension, kit RxNorm: 7115808 Administer 1/2 Milliliter(s) Intramuscular QD one time shingrix step 2 ( step 1 given 11/04/21) WITH needle - Nursing please administer upon arrival and once administered post a bridge message with date of administration, radio installer 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, expiration date, and lot# so we can update [facility] 02/18/20 22 022 Inactive dispense with needle Shingrix (PF) 50 mcg/0.5 mL intramuscular suspension, kit RxNorm: 6027352 Administer 1/2 Milliliter(s) Intramuscular QD one time shingrix step 2 ( step 1 given 11/04/21) WITH needle - Nursing please administer upon arrival and once administered post a bridge message with date of administration, radio installer automobile, expiration date, and lot# so we can update [facility] 02/18/20 22 022 Inactive dispense with needle polyethylene glycol 3350 17 gram/dose oral powder RxNorm: 092209 Take 17=1 capful Gram(s) Oral QD mix with 4-8oz of liquid 01/08/20 22 023 Inactive take this in addition to BID prn order Lyrica 100 mg capsule RxNorm: 450491 Take 1 Capsule(s) Oral QAM every morning 01/08/20 22 022 Inactive d/c 50mg dose acetaminophen 500 mg tablet RxNorm: 505586 Take 1 Tablet(s) Oral TID 01/08/20 22 022 Inactive d/c PRN order Lyrica 150 mg capsule RxNorm: 477653 Take 1 Capsule(s) Oral QHS every night at bedtime 01/08/20 22 023 Inactive d/c 100mg dose Abilify 5 mg tablet RxNorm: 393514 Take 1 Tablet(s) Oral QD take 1 tab po QD #30 refill 5 dx: MDD 12/12/19 22 022 Inactive Abilify 5 mg tablet RxNorm: 190338 Take 1 Tablet(s) Oral QD take 1 tab po QD #30 refill 5 dx: MDD 12/12/19 22 022 Inactive Novolog Flexpen U-100 Insulin aspart 100 unit/mL (3 mL) subcutaneous RxNorm: 9190361 Inject 42 Unit(s) Subcutaneous TID in addition to sliding scale 12/10/19 22 022 Inactive d/c 36u chlorthalidone 25 mg tablet RxNorm: 830536 Take 1 Tablet(s) Oral QAM every morning 12/10/19 22 023 Inactive pregabalin 50 mg capsule RxNorm: 738956 Take 1 Capsule(s) Oral QAM every morning 11/12/19 22 022 Inactive tetanus-diphtheria toxoids-Td 2 Lf unit-2 Lf unit/0.5 mL IM suspension RxNorm: 139 Take 0.5 Miscellaneous Intramuscular 11/12/19 22 022 Inactive need tdap - nursing to administer upon arrival pregabalin 50 mg capsule RxNorm: 004618 Take 1 Capsule(s) Oral QAM every morning 10/16/19 22 022 Inactive pregabalin 50 mg capsule RxNorm: 823699 Take 1 Capsule(s) Oral QAM every morning 10/16/19 22 022 Inactive pregabalin 50 mg capsule RxNorm: 922304 1 Capsule(s) Oral QAM every morning 10/15/19 22 022 Inactive Shingrix (PF) 50 mcg/0.5 mL intramuscular suspension, kit RxNorm: 8299819 Administer 1/2 Milliliter(s) Intramuscular one time Nursing please administer upon arrival and once administered post a bridge message with date of administration, radio installer automobile, expiration date, and lot# so we can update [facility]. 10/09/19 22 022 Inactive shingrix step 1 Shingrix (PF) 50 mcg/0.5 mL intramuscular suspension, kit RxNorm: 2148479 Administer 1/2 Milliliter(s) Intramuscular one time Nursing please administer upon arrival and once administered post a bridge message with date of administration, radio installer automobile, expiration date, and lot# so we can update [facility]. 10/09/19 22 022 Inactive shingrix step 1 cholecalciferol (vitamin D3) 1,250 mcg (50,000 unit) capsule RxNorm: 646951 Take 1 Capsule(s) Oral QW once a [...] aspart 100 unit/mL (3 mL) subcutaneous RxNorm: 7775939 Inject 10 Unit(s) Subcutaneous QHS every night at bedtime with nighttime snack 10/08/19 22 Inactive Shingrix (PF) 50 mcg/0.5 mL intramuscular suspension, kit RxNorm: 2182686 ADMINISTER 2-DOSE SERIES PER CDC GUIDELINES 10/08/19 22 Active Shingrix (PF) 50 mcg/0.5 mL intramuscular suspension, kit RxNorm: 4831303 ADMINISTER 2-DOSE SERIES PER CDC GUIDELINES 10/08/19 22 Inactive Novolog Flexpen U-100 Insulin aspart 100 unit/mL (3 mL) subcutaneous RxNorm: 5887321 Inject 36 Unit(s) Subcutaneous TID in addition to sliding scale 10/08/19 Inactive Novofine Autocover 30 gauge x 1/3 needle RxNorm: Use 1 Miscellaneous UD as directed Use 1 needle as directed to administer insulin 5 times a day Dx:E11.42. 10/03/19 22 Inactive ok to substitute with any covered alternative pen needle benzoyl peroxide 10 % topical cleanser RxNorm: 148205 Apply 1 Application Topical QD apply to face, wash rinse and dry once daily (may change to QOD if drying) 08/19/19 22 022 Inactive (%covered by insurance) #60ml refill 11 dx: acne benzoyl peroxide 10 % topical cleanser RxNorm: 165391 Apply 1 Application Topical QD apply to face, wash rinse and dry once daily (may change to QOD if drying) 08/19/19 22 022 Inactive (%covered by insurance) #60ml refill 11 dx: acne benzoyl peroxide 10 % topical cleanser RxNorm: 218357 Apply 1 Application Topical QD apply to face, wash rinse and dry once daily (may change to QOD if drying) 08/19/19 22 022 Inactive (%covered by insurance) #60ml refill 11 dx: acne Lyrica 50 mg capsule RxNorm: 251535 Take 1 Capsule(s) Oral QAM every morning Take 1 capsule by mouth once daily 08/19/19 22 Inactive benzoyl peroxide 10 % topical cleanser RxNorm: 569459 Apply 1 Application Topical QD apply to face, wash rinse and dry once daily (may change to QOD if drying) 08/19/19 22 Inactive (%covered by insurance) #60ml refill 11 dx: acne Lyrica 100 mg capsule RxNorm: 153775 Take 1 Capsule(s) Oral QHS every night at bedtime Take 1 capsule by mouth once daily at bedtime 08/19/19 022 Inactive Lyrica 100 mg capsule RxNorm: 048861 Take 1 Capsule(s) Oral QHS every night at bedtime Take 1 capsule by mouth once daily at bedtime 08/16/19 22 Inactive Lyrica 50 mg capsule RxNorm: 688524 Take 1 Capsule(s) Oral QAM every morning Take 1 capsule by mouth once daily 08/16/19 22 Inactive Levemir FlexTouch U-100 Insulin 100 unit/mL (3 mL) subcutaneous pen RxNorm: 375931 Inject 86 Unit(s) Subcutaneous BID 08/05/19 22 022 Inactive d/c 83units BID Lyrica 100 mg capsule RxNorm: 187856 Take 1 Capsule(s) Oral QHS every night at bedtime Take 1 capsule by mouth once daily at bedtime 07/14/19 22 022 Inactive Lyrica 50 mg capsule RxNorm: 297251 Take 1 Capsule(s) Oral QAM every morning Take 1 capsule by mouth once daily 07/14/19 22 022 Inactive Levemir FlexTouch U-100 Insulin 100 unit/mL (3 mL) subcutaneous pen RxNorm: 173066 Inject 83 Unit(s) Subcutaneous BID 07/08/19 22 [...] 30 mg tablet,extended release 24 hr RxNorm: 467714 Take 1 Tablet(s) Oral QD 05/05/20 21 024 Inactive hydralazine 50 mg tablet RxNorm: 440789 Take 1 Tablet(s) Oral QID 05/05/20 21 022 Inactive venlafaxine ER 225 mg tablet,extended release 24 hr RxNorm: 654573 Take 1 Tablet(s) Oral QD 05/05/20 21 021 Inactive venlafaxine ER 225 mg tablet,extended release 24 hr RxNorm: 964136 Take 1 Tablet(s) Oral QD 05/05/20 21 022 Inactive hydralazine 50 mg tablet RxNorm: 947364 Take 1 Tablet(s) Oral QID 12 021 Inactive aspirin 81 mg tablet,delayed release RxNorm: 442963 Take 1 Tablet(s) Oral QD 03/31/20 022 Inactive Zetia 10 mg tablet RxNorm: 259041 Take 1 Tablet(s) Oral QD 03/31/20 024 Inactive Vitamin D2 1,250 mcg (50,000 unit) capsule RxNorm: 5939439 Take 1 Capsule(s) Oral QW once a week x 12 weeks 03/31/20 022 Inactive Vitamin D2 1,250 mcg (50,000 unit) capsule RxNorm: 8452857 Take 1 Capsule(s) Oral QW once a week 03/31/20 Inactive Zetia 10 mg tablet RxNorm: 415282 Take 1 Tablet(s) Oral QD 03/31/20 021 Inactive hydralazine 25 mg tablet RxNorm: 638792 Take 1 Tablet(s) Oral QID 03/31/20 021 Inactive hydralazine 25 mg tablet RxNorm: 997167 Take 1 Tablet(s) Oral QID 03/31/20 021 Inactive hydralazine 10 mg tablet RxNorm: 502772 Take 1 Tablet(s) Oral QID 03/03/20 021 Inactive cephalexin 500 mg tablet RxNorm: 500920 Take 1 Tablet(s) Oral QID 02/27/20 021 Inactive cephalexin 500 mg tablet RxNorm: 455679 Take 1 Tablet(s) Oral QID 02/27/20 021 Inactive lisinopril 40 mg tablet RxNorm: 561333 Take 1 Tablet(s) Oral QD 02/11/20 21 023 Inactive Eliquis 5 mg tablet RxNorm: 9026807 Take 1 Tablet(s) Oral BID 01/05/20 21 022 Inactive Eliquis 5 mg tablet RxNorm: 2211640 Take 2 Tablet(s) Oral QD 01/01/20 21 021 Inactive Lyrica 50 mg capsule RxNorm: 538581 Take 1 Capsule(s) Oral QAM every morning 12/24/19 021 Inactive Lyrica 100 mg capsule RxNorm: 839261 Take 1 Capsule(s) Oral QHS every night at bedtime 12/24/19 21 021 Inactive clotrimazole 1 % topical cream RxNorm: 367260 Apply to right foot and toes Topical BID 12/04/19 21 023 Inactive metoprolol succinate ER 200 mg tablet,extended release 24 hr RxNorm: 302792 Take 1 Tablet(s) Oral QD 12/04/19 21 023 Inactive ciprofloxacin 500 mg tablet RxNorm: 371150 Take 1 Tablet(s) Oral QD 11/30/19 21 021 Inactive DX ofloxacin otic drops Accu-Chek Guide test strips RxNorm: USE 1 TO CHECK GLUCOSE 4 TIMES DAILY AND NEEDED 11/15/19 023 Inactive Blood Glucose Test strips RxNorm: Use 1 Test Strip QID at PRN 11/05/19 21 023 Inactive E11.42 lisinopril 30 mg tablet RxNorm: 119742 Take 1 Tablet(s) Oral QD 10/30/19 021 Inactive lisinopril 20 mg tablet RxNorm: 802094 Take 1 Tablet(s) Oral QD 10/23/19 21 021 Inactive lisinopril 20 mg tablet RxNorm: 850825 Take 1 Tablet(s) Oral QD 10/23/19 21 021 Inactive lisinopril 10 mg tablet RxNorm: 937130 Take 1 Tablet(s) Oral QD 10/02/19 21 021 Inactive icosapent ethyl 1 gram capsule RxNorm: 2981587 Take 2 Capsule(s) (2 gm) Oral BID with meals 09/12/19 024 Inactive Okay to dispense one 2gm tab if you have that available. icosapent ethyl 1 gram capsule RxNorm: 5633316 Take 2 Capsule(s) Oral BID 09/12/19 21 021 Inactive Okay to dispense one 2gm tab if you have that available. amlodipine 10 mg tablet RxNorm: 508526 Take 1 Tablet(s) Oral QD 09/04/19 022 Inactive aspirin 81 mg tablet,delayed release RxNorm: 092672 Take 1 Tablet(s) Oral QD 09/04/19 021 Inactive Levemir FlexTouch U-100 Insulin 100 unit/mL (3 mL) subcutaneous pen RxNorm: 195179 Inject 150 Unit(s) Subcutaneous BID 09/04/19 022 Inactive venlafaxine ER 150 mg tablet,extended release 24 hr RxNorm: 299612 Take 1 Tablet(s) Oral QD 09/04/19 021 Inactive clotrimazole-betame thasone 1 %-0.05 % topical cream RxNorm: 668225 Apply to rash on red area on left abdomen/chest Topical BID 08/10/19 Inactive amlodipine 5 mg tablet RxNorm: 129354 Take 1 Tablet(s) Oral QD 07/31/19 Inactive cephalexin 500 mg tablet RxNorm: 728355 Take 1 Tablet(s) Oral BID BID - Twice Daily 07/31/19 021 Inactive Start 08/01/20 pantoprazole 40 mg tablet,delayed release RxNorm: 601304 Take 1 Tablet(s) Oral QAM every morning 07/08/19 022 Inactive senna 8.6 mg tablet RxNorm: 239628 Take 1 Tablet(s) Oral QD 07/08/19 022 Inactive carbamazepine 200 mg tablet RxNorm: 525509 Take 1 Tablet(s) Oral BID 07/08/19 022 Inactive clopidogrel 75 mg tablet RxNorm: 835866 Take 1 Tablet(s) Oral QD 07/08/19 21 021 Inactive Blood Glucose Test strips RxNorm: Use 1 Test Strip QID at PRN 07/08/19 21 021 Inactive E11.42 Novolog Flexpen U-100 Insulin aspart 100 unit/mL (3 mL) subcutaneous RxNorm: 4497097 Administer per sliding scale Milliliter(s) Subcutaneous TID 151-200: 10 u; 201-250: 20 u; 251-300: 30 u; 301-350: 40 u; 351-400: 50 u. 07/08/19 21 022 Inactive lisinopril 5 mg tablet RxNorm: 966338 Take 1 Tablet(s) Oral QD 07/08/19 021 Inactive Novolog Flexpen U-100 Insulin aspart 100 unit/mL (3 mL) subcutaneous RxNorm: 1440912 Inject 85 Unit(s) Subcutaneous TID 07/08/19 022 Inactive pravastatin 80 mg tablet RxNorm: 266624 Take 1 Tablet(s) Oral QHS every night at bedtime 07/08/19 023 Inactive clotrimazole 1 % topical cream RxNorm: 494147 Apply to bilateral groin areas Topical BID 07/08/19 022 Inactive metoprolol succinate ER 200 mg tablet,extended release 24 hr RxNorm: 575043 Take 1 Tablet(s) Oral QD 07/08/19 021 Inactive Vitamin D3 25 mcg (1,000 unit) tablet RxNorm: 703042 Take 1 Tablet(s) Oral QD 07/08/19 021 Inactive isosorbide dinitrate 30 mg tablet RxNorm: 719049 Take 1 Tablet(s) Oral QD 07/08/19 021 Inactive Levemir FlexTouch U-100 Insulin 100 unit/mL (3 mL) subcutaneous pen RxNorm: 002803 Inject 140 Unit(s) Subcutaneous BID 07/08/19 021 Inactive torsemide 20 mg tablet RxNorm: 294476 Take 1 Tablet(s) Oral QD 07/08/19 023 Inactive venlafaxine 75 mg tablet RxNorm: 586495 Take 1 Tablet(s) Oral QD 07/08/19 021 Inactive acetaminophen 500 mg tablet RxNorm: 570279 Take 1 Tablet(s) Oral TID as needed for headache 06/18/19 021 Inactive acetaminophen 500 mg tablet RxNorm: 034385 Take 1 Tablet(s) Oral TID as needed for headache 06/18/19 021 Inactive Lyrica 100 mg capsule RxNorm: 897913 Take 1 Capsule(s) Oral QHS every night at bedtime 06/11/19 21 021 Inactive Lyrica 50 mg capsule RxNorm: 735008 Take 1 Capsule(s) Oral QAM every morning 06/10/19 21 021 Inactive hydrocortisone 2.5 % topical cream RxNorm: 921197 Apply to bilateral groin creases Topical BID 05/15/20 20 021 Inactive clotrimazole 1 % topical cream RxNorm: 272956 Apply to bilateral groin areas Topical BID 05/15/20 20 021 Inactive Lyrica 50 mg capsule RxNorm: 415681 Take 1 Capsule(s) Oral QAM every morning 05/14/20 20 Inactive Lyrica 100 mg capsule RxNorm: 218992 Take 1 Capsule(s) Oral QHS every night [...] Inactive Nystop 100,000 unit/gram topical powder RxNorm: 891215 Apply to abd folds, under breasts and L side of groin Topical BID x 14 days, then BID PRN 04/08/20 20 020 Inactive dx: yeast dermatitis Lyrica 100 mg capsule RxNorm: 013819 Take 1 Capsule(s) Oral QHS every night at bedtime 03/13/20 20 020 Inactive Lyrica 50 mg capsule RxNorm: 842728 Take 1 Capsule(s) Oral QAM every morning 03/13/20 20 Inactive ketoconazole 2 % shampoo RxNorm: 118647 Apply Topical two times a week with showers 03/11/20 20 Inactive cholecalciferol (vitamin D3) 50 mcg (2,000 unit) tablet RxNorm: 578314 Take 1 Tablet(s) Oral QD 03/11/20 20 Inactive Zetia 10 mg tablet RxNorm: 951749 Take 1 Tablet(s) Oral QD 03/07/20 20 Inactive Zetia 10 mg tablet RxNorm: 610662 Take 1 Tablet(s) Oral QD 03/07/20 20 Inactive Lyrica 50 mg capsule RxNorm: 078071 Take 1 Capsule(s) Oral QAM every morning 02/15/20 20 Inactive Lyrica 100 mg capsule RxNorm: 079859 Take 1 Capsule(s) Oral QHS every night at bedtime 02/15/20 20 Inactive Lyrica 100 mg capsule RxNorm: 001977 Take 1 Capsule(s) Oral QHS every night at bedtime 02/15/20 20 Inactive Lyrica 50 mg capsule RxNorm: 400158 Take 1 Capsule(s) Oral QAM every morning 02/15/20 20 Inactive polyethylene glycol 3350 17 gram/dose oral powder RxNorm: 913015 Take 17=1 capful Gram(s) Oral BID as needed mix with 4-8oz of liquid 06/12/19 22 024 Inactive metoprolol succinate ER 200 mg tablet,extended release 24 hr RxNorm: 560391 Take 1 Tablet(s) Oral QD 08/11 Activeloperamide 2 mg capsuleRxNorm: 763644Qzrv 1 Capsule(s) Oral QID as needed 06/12/2021ctivehydralazine 50 mg tabletRxNorm: 655068Zabd 1 Tablet(s) Oral QID 08/11/2022ctivevenlafaxine ER 75 mg capsule,extended release 24 hrRxNorm: 212849Gcjc 3 Capsule(s) Oral QD01/27/679296/Inactiveicosapent ethyl 1 gram capsuleRxNorm: 6680073Jiyb 2 Capsule(s) (2 gm) Oral BID with meals /InactiveOkay to dispense one 2gm tab if you have that available.Levemir FlexTouch U-100 Insulin 100 unit/mL (3 mL) subcutaneous pen RxNorm: 023948Crebsx 80 Unit(s) Subcutaneous BID07/14//Inactive Novolog Flexpen U-100 Insulin aspart 100 unit/mL (3 mL) subcutaneousRxNorm: 8743536Vzxrzv 30 Unit(s) Subcutaneous TID with meals/Inactive Medication Administered No Medication Administered data Procedures Procedure Codes Date DEBRIDE NAIL 6 OR MORE CPT-4: 10751 SYS BP LESS 140 CPT-4: G8752 06/15/2023 CUI BP LESS 90 CPT-4: G8754 06/15/2023 Vital Signs Date Vital 06/15/2023 Blood Pressure 1: 120/60 Code: 8 480-6 Heart Rate 1: 78 bpm Code: 8867-4 Reason For Visit No Reason For Visit data Encounters Encounter Performer Location Location Address Codes Cristiano e ([id number]) Home or Residence Vi sit Est Pt - Moderate Level, 40 mins Diagnosis: Hx of deep venous thrombosis[ICD10: Z86.718] Diagnosis: Diabetic neuropathy associated with type 2 diabetes mellitus[ICD10: E11.40] Diagnosis: Constipation by delayed colonic transit[ICD10: K59.01] Diagnosis: Onychogryposis[ICD10: L60.2] Diagnosis: Type 2 diabetes mellitus with diabetic polyneuropathy, with long-term current use of insulin[ICD10: E11.42]Harrison Loerage on [id number] [place] [id number]-3: [id number] Plan of Care Planned Activity Notes Codes Status Date Appointment: Sandra Clark WPtel: [address] [place], [place] [id number] [facility] Psych Follow Up12/09/2022ppointment: Casper Tapan WPtel: [address] [facility] [address] [id number] USTCM10/26/2022Referral: [facility] WPtel: [address] , [address] [id number] USReferralRecords Fsqolofl91/08/2023ppointment: Tapan Shirley WPtel: [address] [facility] [address] [facility] [address] [id number] USF/U008/11/2022ppointment: Tapan Shirley WPtel: [address] [facility] [address] [id number] USF/U007/14/2022ppointment: Tapan Shirley WPtel: [address] [facility] [address] [id number] USF/U002/10/2022eferral: [facility] WPtel: [address] [facility] [address] [facility] [address] [id number] VYSyvequyxCjszmobld63/12/2022Referral: General CardiologyReferralCompleted 1Referral: General PsychologistReferralClosedReferral: General PsychiatristReferralPatient/Family Scheduling Appointment Instructions Comment Date Leonid is a Male being seen living at [facility]. Initial BPS visit 01/2020. PMHx including DMII, CAD w/ 5 stents, Depression, Seizure Disorder and CKD stage 3. He moved into [facility] in 12/2019 but after a hospitalization 05/2021 he moved to the [facility] to have closer nursing attention. Sister Jyotsna involved in his care cell# [phone] Guardian: Giulia (tapan met in person 09/01/21), now has Lexii (same group as giulia)Lab Schedule: Mar-/September*September (CBC with diff, CMP, A1c) (Novemebr: CBC, CMP, A1c, Lipids, VitD) 10/08/2023 Type 2 diabetes mellitus wit h diabetic polyneuropathy, with long-term current use of insulin Follows with endocrinology. Although still out of his Ozempic prescription. Will follow up with endocrinology to determine if they are going to refill this medication or if they prefer primary care to refill.?? Onychogryposis Toenails debrided today. Right foot 1. Left foot 5. Medical grade nail clippers used to reduce length and thickness. Will continue to monitor toenail length at each visit and debride as needed. Hx of deep venous thrombosis Patient current compression stockings are stretched out and no longer providing compression. Measurements obtained for both left and right legs for knee high compression stockings to be ordered. Specific measurements will be provided in order. No redness or open skin areas present on lower extremities today. Does have baseline marshall skin to calves. Constipation by delayed colonic transit Was experiencing constipation prior but as of today is no longer constipated. Continue with PRN bowel medications. Will refill the PRN Miralax today.?? Diabetic neuropathy associated with type 2 diabetes mellitus Reports neuropathy of bilateral feet. Sensation described as thumping pain. Does currently take Lyrica in the morning and use to take Lyrica at night as well. He is not sure how long he has been without the night time dose. Will restart the night time dose of Lyrica; and slowly taper up to previous dose since he has been without for an unknown amount of time. See VAI and orders to details.??.06/15/2023
--- OUTSIDE RECORDS SUMMARY | 2023-11-03 10:22 | XMS_ITS | CCD ---
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 [employer] Name Role Phone [facility] [employer]PER[employer] CLERK[facility] Primary Care Provider Leona vailable [facility] [employer] Chronic Care Management U navailable Summary Purpose DataExchange Insurance Providers Payer name Policy type / Coverage type Covered libertarian ID Effective Begin Date Effective End Date [place] Part B [id number] Unknown Unknown [place] Medicare Part B [id number] Unknown Unknown Family history Sister Brittany Suggs [...] Snf 09/03/[address]: 0118075 Non-Smoker / No History of Smoking 09/02/[address]: 850702392 No Alcohol Consum ption 09/02/2020 Allergies, Adverse Reactions, Alerts Substance Reaction Codes Entered Date Inactivated Date Status LISINOPRIL RxNorm: 9670992No Inactive DateActiveMetformin LDkYqttbbg01/28/2020No Inactive DateActive Problems Condition Codes Effective Dates [...] I11.9 ICD-9: 402.9012/ctiveCoronary artery disease involving [place] coronary artery of [place] heart, angina presence unspecifiedICD-10: I25.10 ICD-9: 414.0111/ctiveReducible umbilical herniaICD-10: K42.9 ICD-9: 553.111/ctiveBMI 60.0-69.9, adultICD-10: Z68.44 ICD-9: V85.4410/ctiveCandidal intertrigoICD-10: B37.2 ICD-9: 112.310/ctiveHyperlipidemia associated with type 2 diabetes mellitusICD-10: E11.69 ICD-9: 250.8010/ctiveHyperlipidemia, unspecifiedICD-10: E78.5 ICD-9: 272.410/ctiveStage 2 chronic 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ICD-10: E11.22 ICD-9: 250.4010/ctiveInappropriate sexual behaviorICD-10: Z72.89 ICD-9: 312.8910/ctiveLearning disabilityICD-10: F81.9 ICD-9: 315.210/ctiveMajor depression, recurrentICD-10: F33.9 ICD-9: 296.3010/ctiveOther jail (current) drug therapyICD-10: Z79.899 ICD-9: V58.6910/ctiveRecurrent major [...] vascular disease)ICD-10: I73.9 ICD-9: 443.909/2ActiveDepressionICD-10: F32.9 ICD-9: 07092/esolvedDVT (deep venous thrombosis)ICD-10: I82.409 ICD-9: 453.4009/2ResolvedEncounter for immunizationICD-10: Z23 ICD-9: V03.8909/2ResolvedLong term (current) use of insulinICD-10: Z79.4 2ResolvedMuscular painICD-10: M79.10 ICD-9: 729.1092ResolvedDandruff in adultICD-10: L21.0 ICD-9: 690.18001/06/2022ctiveHypertension associated with diabetesICD-10: E11.59 ICD-9: 250.80001/06/2022esolvedHistory of anemia due to CKDICD-10: N18.9 ICD-9: 585.907/2ActiveStage 2 chronic kidney diseaseICD-10: N18.2 ICD-9: 585.207ctiveGout due to renal impairmentICD-10: M10.30 ICD-9: 274.10062ActiveSkin tagICD-10: L91.8 ICD-9: 701.911ctiveCallus of heelICD-10: L84 ICD-9: 283251ActiveImpacted cerumen, left earICD-10: H61.22 ICD-9: 380.408/ctiveContact with [...] Z20.828 ICD-9: V01.79021ResolvedHyperhidrosis of palmsICD-10: L74.512 ICD-9: 705.9889VfnbkwEvpwnjrlQuoymbm20/28/2020ActiveDiabetes mellitus Type 9Xrqorqq19/28/2020ActiveAnemia in chronic kidney diseaseICD-10: D63.1 02/12/2020ResolvedHyperlipidemia, unspecifiedICD-10: E78.Resolved Medications Medication Codes Instructions Start Date Stop Date Status Fill Instructions polyethylene glycol 3350 17 gram/dose oral powder RxNorm: 789987 Take 1 Packet Oral QD as needed (1 packet = 17g) mix with 4-8oz of liquid 06/15/19 24 024 Inactive bisacodyl 10 mg rectal suppository RxNorm: 956725 Insert one suppository per rectum once daily as needed for constipation 06/15/19 024 Inactive bisacodyl 10 mg rectal suppository RxNorm: 236685 Insert one suppository per rectum once daily as needed for constipation 06/15/19 24 024 Inactive pregabalin 100 mg capsule RxNorm: 331459 Take 1 Capsule(s) Oral QAM every morning 04/27/20 23 024 Inactive Levemir FlexPen 100 unit/mL (3 mL) solution subcutaneous insulin pen RxNorm: 787782 Inject 30 Unit(s) Subcutaneous BID 04/27/20 23 024 Inactive rosuvastatin 40 mg tablet RxNorm: 481425 Take 1 Tablet(s) Oral QPM every evening 04/16/20 23 024 Inactive D/C rosuvastatin 20mg venlafaxine ER 75 mg capsule,extended release 24 hr RxNorm: 317125 Take 3 Capsule(s) Oral QD 04/14/20 23 023 Inactive pregabalin 100 mg capsule RxNorm: 466336 Take 1 Capsule(s) Oral QAM every morning [...] meter clotrimazole 1 % topical cream RxNorm: 998721 Take apply topically to abdominal folds twice daily for 14 days 03/12/20 024 Inactive Ozempic 1 mg/dose (4 mg/3 mL) subcutaneous pen injector RxNorm: 7274081 Inject 1 Milligram(s) Subcutaneous QW once a week 03/11/20 023 Inactive rosuvastatin 20 mg tablet RxNorm: 498564 Take 1 Tablet(s) Oral QD 02/26/20 23 023 Inactive d/c pravastatin 80mg Ozempic 1 mg/dose (4 mg/3 mL) subcutaneous pen injector RxNorm: 1784271 Inject 1 Milligram(s) Subcutaneous QW once a week 02/20/20 23 023 Inactive pregabalin 150 mg capsule RxNorm: 853097 Take 1 Capsule(s) Oral HS at bed time 02/19/20 23 023 Inactive pregabalin 100 mg capsule RxNorm: 015698 Take 1 Capsule(s) Oral QAM every morning 02/18/20 23 023 Inactive FreeStyle Chema 2 Sensor kit RxNorm: use as directed 02/04/20 23 024 Inactive venlafaxine ER 75 mg capsule,extended release 24 hr RxNorm: 392798 Take 3 Capsule(s) Oral QD 02/04/20 23 023 Inactive FreeStyle Chema 2 Sensor kit RxNorm: use as directed 02/04/20 023 Inactive fluconazole 150 mg tablet RxNorm: 831667 Take 1 Tablet(s) Oral on day 3 and on day 6 02/03/20 23 024 Active chlorthalidone 25 mg tablet RxNorm: 099206 Take 1 Tablet(s) Oral QAM every morning 02/03/20 23 No Stop Date Active venlafaxine ER 150 mg capsule,extended release 24 hr RxNorm: 658862 Take 1 Capsule(s) Oral QD 02/03/20 23 023 Inactive acetaminophen 500 mg tablet RxNorm: 602917 1 TABLET ORALLY 3 TIMES DAILY (MAX APAP:4GM/24HR) 12/15/19 23 023 Inactive potassium chloride ER 20 mEq tablet,extended release RxNorm: 307594 Take 1 Tablet(s) Oral BID 12/09/19 23 024 Inactive d/c 20mEq once daily (sent from hospital) clotrimazole 1 % topical cream RxNorm: 655662 apply 1g topically to top of feet and in between toes BID 12/09/19 23 023 Inactive nystatin 100,000 unit/gram topical powder RxNorm: 481848 APPLY TO AFFECTED AREAS TOPICALLY 2 TIMES DAILY 11/21/19 23 024 Inactive Nystop 100,000 unit/gram topical powder RxNorm: 706832 Apply to abd folds, under breasts and L side of groin Topical BID x 14 days, then BID PRN 11/20/19 23 023 Inactive dx: yeast dermatitis [place] Ultra Strength 4 %-30 %-10 % topical cream RxNorm: 212750 Apply 1 Gram(s) Topical QID PRN to feet and legs for neuropathic pain 11/11/19 23 024 Active hydrocortisone 2.5 % topical cream RxNorm: 096823 Apply 1/2 Gram(s) Topical BID as needed 11/10/19 23 024 Inactive clotrimazole 1 % topical cream RxNorm: 035538 Apply 1/2 Gram(s) Topical BID Apply to affected areas of groin, periarea, and abdominal topically 2 times daily 11/10/19 23 023 Inactive Humulin R U-500 (Concentrated) Insulin 500 unit/mL subcutaneous soln RxNorm: 713473 Inject 100 Unit(s) Subcutaneous TID 10/07/19 024 Inactive Ozempic 0.25 mg or 0.5 mg (2 mg/3 mL) subcutaneous pen injector RxNorm: 4502964 Inject 1/2 Milligram(s) Subcutaneous QW once a week 10/07/19 23 024 Inactive Levemir FlexPen 100 unit/mL (3 mL) solution subcutaneous insulin pen RxNorm: 856065 Inject 30 Unit(s) Subcutaneous BID 10/07/19 23 023 Inactive aripiprazole 15 mg tablet RxNorm: 759250 /2 TAB (7.5MG) ORALLY DAILY (DX:MAJOR DEPRESSIVE DISORDER) 09/23/19 23 023 Inactive Lancets,Thin 28 gauge RxNorm: Use 1 as directed QID 09/15/19 23 024 Inactive Accu-Chek Guide test strips RxNorm: Use 1 Test Strip QID 09/15/19 23 023 Inactive ok to substitute with any covered alternative test strip torsemide 20 mg tablet RxNorm: 829238 Take 1 Tablet(s) Oral BID 09/09/19 23 024 Inactive d/c once daily dosing carvedilol 25 mg tablet RxNorm: 379487 Take 1 Tablet(s) Oral QD 08/25/19 23 024 Inactive pregabalin 150 mg capsule RxNorm: 326096 1 Capsule(s) Oral HS at bed time 08/18/19 23 023 Inactive pregabalin 100 mg capsule RxNorm: 186350 1 Capsule(s) Oral QAM every morning 08/18/19 23 023 Inactive carvedilol 25 mg tablet RxNorm: 667630 1 Tablet(s) Oral QD 07/28/19 23 023 Inactive lisinopril 20 mg tablet RxNorm: 323331 Give 1 Tablet(s) Oral QD 07/28/19 23 023 Inactive Lyrica 150 mg capsule RxNorm: 932491 Take 1 Capsule(s) Oral QHS every night at bedtime 07/19/19 23 023 Inactive d/c 100mg dose Diflucan 150 mg tablet RxNorm: 754930 Take 1 Tablet(s) Oral QD repeat on day 3 and 6 07/19/19 23 023 Inactive pregabalin 100 mg capsule RxNorm: 091313 Take 1 Capsule(s) Oral QAM every morning 07/19/19 23 023 Inactive gatifloxacin 0.5 % eye drops RxNorm: 804764 Instill 1 Drop(s) as directed TID Instill 1 drop in to affected eye(s) starting 1 day prior to surgery and continue until gone (do not exceed 4 weeks). 07/13/19 23 023 Inactive carvedilol 25 mg tablet RxNorm: 872422 2 Tablet(s) Oral BID 07/13/19 23 023 Inactive Humulin R Regular U-100 Insulin 100 unit/mL injection solution RxNorm: 578445 85 Unit(s) Injection TID 07/13/19 23 023 Inactive ketorolac 0.5 % eye drops RxNorm: 171032 Instill 1 Drop(s) as directed QID Instill 1 drop into affected eye(s) 4 times daily starting 1 day prior to surgery and continue until gone (do not exceed 4 weeks). 07/13/19 023 Inactive Diflucan 150 mg tablet RxNorm: 590023 Take 1 Tablet(s) Oral QD repeat on day 3 and 6 06/30/19 023 Inactive Accu-Chek Guide test strips RxNorm: Use 1 Test Strip QID Use 1 test strip to monitor blood glucose 4 times daily and as needed. Dx:E11.42. 06/23/19 23 023 Inactive ok to substitute with any covered alternative test strip dextromethorphan-gu aifenesin 10 mg-100 mg/5 mL oral liquid RxNorm: 043669 Take 10 Milliliter(s) Oral every 4 hours as needed for cough 06/19/19 23 023 Inactive dextromethorphan-gu aifenesin 10 mg-100 mg/5 mL oral liquid RxNorm: 304985 Take 10 Milliliter(s) Oral every 4 hours as needed for cough 06/19/19 23 023 Inactive Lyrica 150 mg capsule RxNorm: 997276 Take 1 Capsule(s) Oral QHS every night at bedtime 06/18/19 23 023 Inactive d/c 100mg dose aripiprazole 15 mg tablet RxNorm: 096463 1/2 TAB (7.5MG) ORALLY DAILY (DX:MAJOR DEPRESSIVE DISORDER) 06/05/19 23 023 Inactive pregabalin 100 mg capsule RxNorm: 603909 1 Capsule(s) Oral QAM every morning 06/02/19 023 Inactive Banophen 50 mg capsule RxNorm: 6373855 Take 1 Capsule(s) Oral Q6H every 6 hours as needed 05/19/19 No Stop Date Active Novolog Flexpen U-100 Insulin aspart 100 unit/mL (3 mL) subcutaneous RxNorm: 8348471 Inject 10 Unit(s) Subcutaneous QHS every night at bedtime with nighttime snack 04/08/20 Inactive Novolog Flexpen U-100 Insulin aspart 100 unit/mL (3 mL) subcutaneous RxNorm: 0459536 Inject 42 Unit(s) Subcutaneous TID in addition to sliding scale 04/08/20 Inactive d/c 36u albuterol sulfate HFA 90 mcg/actuation aerosol inhaler RxNorm: 0344785 Take 2 Puff(s) Inhalation Q4H every four hours as needed as needed for SOB, cough, or wheezing 04/07/20 030 Active Banophen 50 mg capsule RxNorm: 3092626 Take 1 Capsule(s) Oral Q6H every 6 hours as needed 04/06/20 023 Inactive diphenhydramine 50 mg tablet RxNorm: 5827390 Take 1 Tablet(s) Oral Q6H every 6 hours as needed 04/06/20 022 Inactive diphenhydramine 50 mg tablet RxNorm: 8075003 1 Tablet(s) Oral Q6H every 6 hours as needed 04/06/20 022 Inactive Abilify 15 mg tablet RxNorm: 628796 1/2 Tablet(s) Oral QD 03/10/20 023 Inactive Shingrix (PF) 50 mcg/0.5 mL intramuscular suspension, kit RxNorm: 1686582 Administer 1/2 Milliliter(s) Intramuscular QD one time shingrix step 2 ( step 1 given 11/04/21) WITH needle - Nursing please administer upon arrival and once administered post a bridge message with 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, 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, expiration date, and lot# so we can update [facility] 02/18/20 22 022 Inactive dispense with needle Shingrix (PF) 50 mcg/0.5 mL intramuscular suspension, kit RxNorm: 9826002 Administer 1/2 Milliliter(s) Intramuscular QD one time shingrix step 2 ( step 1 given 11/04/21) WITH needle - Nursing please administer upon arrival and once administered post a bridge message with date of administration, 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, expiration date, and lot# so we can update [facility] 02/18/20 22 022 Inactive dispense with needle polyethylene glycol 3350 17 gram/dose oral powder RxNorm: 782744 Take 17=1 capful Gram(s) Oral QD mix with 4-8oz of liquid 01/08/20 22 023 Inactive take this in addition to BID prn order Lyrica 100 mg capsule RxNorm: 192200 Take 1 Capsule(s) Oral QAM every morning 01/08/20 22 022 Inactive d/c 50mg dose acetaminophen 500 mg tablet RxNorm: 317044 Take 1 Tablet(s) Oral TID 01/08/20 22 022 Inactive d/c PRN order Lyrica 150 mg capsule RxNorm: 715498 Take 1 Capsule(s) Oral QHS every night at bedtime 01/08/20 22 023 Inactive d/c 100mg dose Abilify 5 mg tablet RxNorm: 403468 Take 1 Tablet(s) Oral QD take 1 tab po QD #30 refill 5 dx: MDD 12/12/19 22 022 Inactive Abilify 5 mg tablet RxNorm: 997137 Take 1 Tablet(s) Oral QD take 1 tab po QD #30 refill 5 dx: MDD 12/12/19 22 022 Inactive Novolog Flexpen U-100 Insulin aspart 100 unit/mL (3 mL) subcutaneous RxNorm: 5373856 Inject 42 Unit(s) Subcutaneous TID in addition to sliding scale 12/10/19 22 022 Inactive d/c 36u chlorthalidone 25 mg tablet RxNorm: 110971 Take 1 Tablet(s) Oral QAM every morning 12/10/19 22 023 Inactive pregabalin 50 mg capsule RxNorm: 364168 Take 1 Capsule(s) Oral QAM every morning 11/12/19 22 022 Inactive tetanus-diphtheria toxoids-Td 2 Lf unit-2 Lf unit/0.5 mL IM suspension RxNorm: 139 Take 0.5 Miscellaneous Intramuscular 11/12/19 22 022 Inactive need tdap - nursing to administer upon arrival pregabalin 50 mg capsule RxNorm: 081426 Take 1 Capsule(s) Oral QAM every morning 10/16/19 22 022 Inactive pregabalin 50 mg capsule RxNorm: 365623 Take 1 Capsule(s) Oral QAM every morning 10/16/19 22 022 Inactive pregabalin 50 mg capsule RxNorm: 036687 1 Capsule(s) Oral QAM every morning 10/15/19 22 022 Inactive Shingrix (PF) 50 mcg/0.5 mL intramuscular suspension, kit RxNorm: 7127465 Administer 1/2 Milliliter(s) Intramuscular one time Nursing please administer upon arrival and once administered post a bridge message with date of administration, 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 10/09/19 22 022 Inactive shingrix step 1 cholecalciferol (vitamin D3) 1,250 mcg (50,000 unit) capsule RxNorm: 694333 Take 1 Capsule(s) Oral QW once a [...] aspart 100 unit/mL (3 mL) subcutaneous RxNorm: 3149348 Inject 10 Unit(s) Subcutaneous QHS every night at bedtime with nighttime snack 10/08/19 22 Inactive Shingrix (PF) 50 mcg/0.5 mL intramuscular suspension, kit RxNorm: 5368254 ADMINISTER 2-DOSE SERIES PER CDC GUIDELINES 10/08/19 22 Active Shingrix (PF) 50 mcg/0.5 mL intramuscular suspension, kit RxNorm: 1141593 ADMINISTER 2-DOSE SERIES PER CDC GUIDELINES 10/08/19 22 Inactive Novolog Flexpen U-100 Insulin aspart 100 unit/mL (3 mL) subcutaneous RxNorm: 3345180 Inject 36 Unit(s) Subcutaneous TID in addition to sliding scale 10/08/19 Inactive Novofine Autocover 30 gauge x 1/3 needle RxNorm: Use 1 Miscellaneous UD as directed Use 1 needle as directed to administer insulin 5 times a day Dx:E11.42. 10/03/19 22 Inactive ok to substitute with any covered alternative pen needle benzoyl peroxide 10 % topical cleanser RxNorm: 843308 Apply 1 Application Topical QD apply to face, wash rinse and dry once daily (may change to QOD if drying) 08/19/19 22 022 Inactive (%covered by insurance) #60ml refill 11 dx: acne benzoyl peroxide 10 % topical cleanser RxNorm: 972600 Apply 1 Application Topical QD apply to face, wash rinse and dry once daily (may change to QOD if drying) 08/19/19 22 022 Inactive (%covered by insurance) #60ml refill 11 dx: acne benzoyl peroxide 10 % topical cleanser RxNorm: 772209 Apply 1 Application Topical QD apply to face, wash rinse and dry once daily (may change to QOD if drying) 08/19/19 22 022 Inactive (%covered by insurance) #60ml refill 11 dx: acne Lyrica 50 mg capsule RxNorm: 864093 Take 1 Capsule(s) Oral QAM every morning Take 1 capsule by mouth once daily 08/19/19 22 Inactive benzoyl peroxide 10 % topical cleanser RxNorm: 337324 Apply 1 Application Topical QD apply to face, wash rinse and dry once daily (may change to QOD if drying) 08/19/19 22 Inactive (%covered by insurance) #60ml refill 11 dx: acne Lyrica 100 mg capsule RxNorm: 106140 Take 1 Capsule(s) Oral QHS every night at bedtime Take 1 capsule by mouth once daily at bedtime 08/19/19 22 022 Inactive Lyrica 100 mg capsule RxNorm: 750356 Take 1 Capsule(s) Oral QHS every night at bedtime Take 1 capsule by mouth once daily at bedtime 08/16/19 22 022 Inactive Lyrica 50 mg capsule RxNorm: 770799 Take 1 Capsule(s) Oral QAM every morning Take 1 capsule by mouth once daily 08/16/19 22 Inactive Levemir FlexTouch U-100 Insulin 100 unit/mL (3 mL) subcutaneous pen RxNorm: 702917 Inject 86 Unit(s) Subcutaneous BID 08/05/19 22 022 Inactive d/c 83units BID Lyrica 100 mg capsule RxNorm: 940344 Take 1 Capsule(s) Oral QHS every night at bedtime Take 1 capsule by mouth once daily at bedtime 07/14/19 22 022 Inactive Lyrica 50 mg capsule RxNorm: 197585 Take 1 Capsule(s) Oral QAM every morning Take 1 capsule by mouth once daily 07/14/19 22 022 Inactive Levemir FlexTouch U-100 Insulin 100 unit/mL (3 mL) subcutaneous pen RxNorm: 155344 Inject 83 Unit(s) Subcutaneous BID 07/08/19 22 [...] 30 mg tablet,extended release 24 hr RxNorm: 444108 Take 1 Tablet(s) Oral QD 05/05/20 21 024 Inactive hydralazine 50 mg tablet RxNorm: 375165 Take 1 Tablet(s) Oral QID 05/05/20 21 022 Inactive venlafaxine ER 225 mg tablet,extended release 24 hr RxNorm: 372624 Take 1 Tablet(s) Oral QD 05/05/20 21 021 Inactive venlafaxine ER 225 mg tablet,extended release 24 hr RxNorm: 740084 Take 1 Tablet(s) Oral QD 05/05/20 21 022 Inactive hydralazine 50 mg tablet RxNorm: 993620 Take 1 Tablet(s) Oral QID 05/05/20 021 Inactive aspirin 81 mg tablet,delayed release RxNorm: 528501 Take 1 Tablet(s) Oral QD 03/31/20 022 Inactive Zetia 10 mg tablet RxNorm: 021883 Take 1 Tablet(s) Oral QD 03/31/20 024 Inactive Vitamin D2 1,250 mcg (50,000 unit) capsule RxNorm: 5862319 Take 1 Capsule(s) Oral QW once a week x 12 weeks 03/31/20 022 Inactive Vitamin D2 1,250 mcg (50,000 unit) capsule RxNorm: 5705543 Take 1 Capsule(s) Oral QW once a week 03/31/20 Inactive Zetia 10 mg tablet RxNorm: 499956 Take 1 Tablet(s) Oral QD 03/31/20 021 Inactive hydralazine 25 mg tablet RxNorm: 872923 Take 1 Tablet(s) Oral QID 03/31/20 021 Inactive hydralazine 25 mg tablet RxNorm: 219925 Take 1 Tablet(s) Oral QID 03/31/20 021 Inactive hydralazine 10 mg tablet RxNorm: 392288 Take 1 Tablet(s) Oral QID 03/03/20 021 Inactive cephalexin 500 mg tablet RxNorm: 784714 Take 1 Tablet(s) Oral QID 02/27/20 021 Inactive cephalexin 500 mg tablet RxNorm: 047748 Take 1 Tablet(s) Oral QID 02/27/20 021 Inactive lisinopril 40 mg tablet RxNorm: 010876 Take 1 Tablet(s) Oral QD 02/11/20 21 023 Inactive Eliquis 5 mg tablet RxNorm: 5095886 Take 1 Tablet(s) Oral BID 01/05/20 21 022 Inactive Eliquis 5 mg tablet RxNorm: 7222286 Take 2 Tablet(s) Oral QD 01/01/20 21 021 Inactive Lyrica 50 mg capsule RxNorm: 065003 Take 1 Capsule(s) Oral QAM every morning 12/24/19 21 021 Inactive Lyrica 100 mg capsule RxNorm: 975277 Take 1 Capsule(s) Oral QHS every night at bedtime 12/24/19 21 021 Inactive clotrimazole 1 % topical cream RxNorm: 218046 Apply to right foot and toes Topical BID 12/04/19 21 023 Inactive metoprolol succinate ER 200 mg tablet,extended release 24 hr RxNorm: 481352 Take 1 Tablet(s) Oral QD 12/04/19 21 023 Inactive ciprofloxacin 500 mg tablet RxNorm: 745297 Take 1 Tablet(s) Oral QD 11/30/19 21 021 Inactive DX ofloxacin otic drops Accu-Chek Guide test strips RxNorm: USE 1 TO CHECK GLUCOSE 4 TIMES DAILY AND NEEDED 11/15/19 023 Inactive Blood Glucose Test strips RxNorm: Use 1 Test Strip QID at PRN 11/05/19 21 023 Inactive E11.42 lisinopril 30 mg tablet RxNorm: 207327 Take 1 Tablet(s) Oral QD 10/30/19 021 Inactive lisinopril 20 mg tablet RxNorm: 133412 Take 1 Tablet(s) Oral QD 10/23/19 21 021 Inactive lisinopril 20 mg tablet RxNorm: 846188 Take 1 Tablet(s) Oral QD 10/23/19 21 021 Inactive lisinopril 10 mg tablet RxNorm: 996501 Take 1 Tablet(s) Oral QD 10/02/19 21 021 Inactive icosapent ethyl 1 gram capsule RxNorm: 1781317 Take 2 Capsule(s) (2 gm) Oral BID with meals 09/12/19 024 Inactive Okay to dispense one 2gm tab if you have that available. icosapent ethyl 1 gram capsule RxNorm: 7410501 Take 2 Capsule(s) Oral BID 09/12/19 21 021 Inactive Okay to dispense one 2gm tab if you have that available. amlodipine 10 mg tablet RxNorm: 147704 Take 1 Tablet(s) Oral QD 09/04/19 022 Inactive aspirin 81 mg tablet,delayed release RxNorm: 066793 Take 1 Tablet(s) Oral QD 09/04/19 Inactive Levemir FlexTouch U-100 Insulin 100 unit/mL (3 mL) subcutaneous pen RxNorm: 713094 Inject 150 Unit(s) Subcutaneous BID 09/04/19 022 Inactive venlafaxine ER 150 mg tablet,extended release 24 hr RxNorm: 464744 Take 1 Tablet(s) Oral QD 09/04/19 021 Inactive clotrimazole-betame thasone 1 %-0.05 % topical cream RxNorm: 074520 Apply to rash on red area on left abdomen/chest Topical BID 08/10/19 21 Inactive amlodipine 5 mg tablet RxNorm: 278041 Take 1 Tablet(s) Oral QD 07/31/19 Inactive cephalexin 500 mg tablet RxNorm: 559864 Take 1 Tablet(s) Oral BID BID - Twice Daily 07/31/19 021 Inactive Start 08/01/20 pantoprazole 40 mg tablet,delayed release RxNorm: 891438 Take 1 Tablet(s) Oral QAM every morning 07/08/19 022 Inactive senna 8.6 mg tablet RxNorm: 483420 Take 1 Tablet(s) Oral QD 07/08/19 022 Inactive carbamazepine 200 mg tablet RxNorm: 703974 Take 1 Tablet(s) Oral BID 07/08/19 022 Inactive clopidogrel 75 mg tablet RxNorm: 271956 Take 1 Tablet(s) Oral QD 07/08/19 021 Inactive Blood Glucose Test strips RxNorm: Use 1 Test Strip QID at PRN 07/08/19 021 Inactive E11.42 Novolog Flexpen U-100 Insulin aspart 100 unit/mL (3 mL) subcutaneous RxNorm: 8193505 Administer per sliding scale Milliliter(s) Subcutaneous TID 151-200: 10 u; 201-250: 20 u; 251-300: 30 u; 301-350: 40 u; 351-400: 50 u. 07/08/19 21 022 Inactive lisinopril 5 mg tablet RxNorm: 476543 Take 1 Tablet(s) Oral QD 07/08/19 021 Inactive Novolog Flexpen U-100 Insulin aspart 100 unit/mL (3 mL) subcutaneous RxNorm: 3836463 Inject 85 Unit(s) Subcutaneous TID 07/08/19 022 Inactive pravastatin 80 mg tablet RxNorm: 249358 Take 1 Tablet(s) Oral QHS every night at bedtime 07/08/19 023 Inactive clotrimazole 1 % topical cream RxNorm: 405769 Apply to bilateral groin areas Topical BID 07/08/19 022 Inactive metoprolol succinate ER 200 mg tablet,extended release 24 hr RxNorm: 055004 Take 1 Tablet(s) Oral QD 07/08/19 021 Inactive Vitamin D3 25 mcg (1,000 unit) tablet RxNorm: 091153 Take 1 Tablet(s) Oral QD 07/08/19 021 Inactive isosorbide dinitrate 30 mg tablet RxNorm: 705713 Take 1 Tablet(s) Oral QD 07/08/19 021 Inactive Levemir FlexTouch U-100 Insulin 100 unit/mL (3 mL) subcutaneous pen RxNorm: 431009 Inject 140 Unit(s) Subcutaneous BID 07/08/19 021 Inactive torsemide 20 mg tablet RxNorm: 851706 Take 1 Tablet(s) Oral QD 07/08/19 023 Inactive venlafaxine 75 mg tablet RxNorm: 613491 Take 1 Tablet(s) Oral QD 07/08/19 021 Inactive acetaminophen 500 mg tablet RxNorm: 646793 Take 1 Tablet(s) Oral TID as needed for headache 06/18/19 021 Inactive acetaminophen 500 mg tablet RxNorm: 548398 Take 1 Tablet(s) Oral TID as needed for headache 06/18/19 021 Inactive Lyrica 100 mg capsule RxNorm: 066182 Take 1 Capsule(s) Oral QHS every night at bedtime 06/11/19 21 021 Inactive Lyrica 50 mg capsule RxNorm: 961993 Take 1 Capsule(s) Oral QAM every morning 06/10/19 21 021 Inactive hydrocortisone 2.5 % topical cream RxNorm: 563244 Apply to bilateral groin creases Topical BID 05/15/20 20 021 Inactive clotrimazole 1 % topical cream RxNorm: 259699 Apply to bilateral groin areas Topical BID 05/15/20 20 021 Inactive Lyrica 50 mg capsule RxNorm: 054624 Take 1 Capsule(s) Oral QAM every morning 05/14/20 20 Inactive Lyrica 100 mg capsule RxNorm: 491898 Take 1 Capsule(s) Oral QHS every night [...] Inactive Nystop 100,000 unit/gram topical powder RxNorm: 075025 Apply to abd folds, under breasts and L side of groin Topical BID x 14 days, then BID PRN 04/08/20 20 020 Inactive dx: yeast dermatitis Lyrica 100 mg capsule RxNorm: 744668 Take 1 Capsule(s) Oral QHS every night at bedtime 03/13/20 20 020 Inactive Lyrica 50 mg capsule RxNorm: 318174 Take 1 Capsule(s) Oral QAM every morning 03/13/20 20 Inactive ketoconazole 2 % shampoo RxNorm: 945381 Apply Topical two times a week with showers 03/11/20 20 Inactive cholecalciferol (vitamin D3) 50 mcg (2,000 unit) tablet RxNorm: 512439 Take 1 Tablet(s) Oral QD 03/11/20 20 Inactive Zetia 10 mg tablet RxNorm: 911361 Take 1 Tablet(s) Oral QD 03/07/20 20 Inactive Zetia 10 mg tablet RxNorm: 630461 Take 1 Tablet(s) Oral QD 03/07/20 20 Inactive Lyrica 50 mg capsule RxNorm: 167857 Take 1 Capsule(s) Oral QAM every morning 02/15/20 20 Inactive Lyrica 100 mg capsule RxNorm: 225499 Take 1 Capsule(s) Oral QHS every night at bedtime 02/15/20 20 Inactive Lyrica 100 mg capsule RxNorm: 166993 Take 1 Capsule(s) Oral QHS every night at bedtime 02/15/20 20 Inactive Lyrica 50 mg capsule RxNorm: 759826 Take 1 Capsule(s) Oral QAM every morning 02/15/20 20 Inactive polyethylene glycol 3350 17 gram/dose oral powder RxNorm: 162302 Take 17=1 capful Gram(s) Oral BID as needed mix with 4-8oz of liquid 06/12/19 22 024 Inactive metoprolol succinate ER 200 mg tablet,extended release 24 hr RxNorm: 349424 Take 1 Tablet(s) Oral QD 08/11 Activeloperamide 2 mg capsuleRxNorm: 467414Gxxh 1 Capsule(s) Oral QID as needed 06/12/2021ctivehydralazine 50 mg tabletRxNorm: 115069Yijj 1 Tablet(s) Oral QID 08/11/2022ctivevenlafaxine ER 75 mg capsule,extended release 24 hrRxNorm: 924930Cbwe 3 Capsule(s) Oral QD/Inactiveicosapent ethyl 1 gram capsuleRxNorm: 6284776Gtqa 2 Capsule(s) (2 gm) Oral BID with meals /InactiveOkay to dispense one 2gm tab if you have that available.Levemir FlexTouch U-100 Insulin 100 unit/mL (3 mL) subcutaneous pen RxNorm: 680702Podplp 80 Unit(s) Subcutaneous BID07/14//Inactive Novolog Flexpen U-100 Insulin aspart 100 unit/mL (3 mL) subcutaneousRxNorm: 4917450Fvdmmi 30 Unit(s) Subcutaneous TID with meals/Inactive Medication Administered No Medication Administered data Reason For Visit No Reason For Visit data Plan of Care Planned Activity Notes Codes Status Date Referral: [facility] WPtel: [address] , [address] [id number] USReferralRecords Yoarbqcx16/08/2023Referral: [facility] WPtel: [address] [id number]/12/2022Referral: General CardiologyReferralCompleted 1Referral: General PsychologistReferralClosedReferral: General PsychiatristReferralPatient/Family Scheduling Appointment Instructions Comment Date Leonid is a Male being seen living at [facility]. Initial [facility] visit 01/2020. PMHx including DMII, CAD w/ 5 stents, Depression, Seizure Disorder and CKD stage 3. He moved into [facility] in 12/2019 but after a hospitalization 05/2021 he moved to the [facility] to have closer nursing attention. Sister Jyotsna involved in his care cell# [phone] Guardian: Don (tapan met in person 09/01/21), now has Lexii (same group as don)Lab Schedule: /September*September (CBC with diff, CMP, A1c) (Novemebr: CBC, CMP, A1c, Lipids, VitD) 10/08/2023
--- OUTSIDE RECORDS SUMMARY | 2023-11-03 10:25 | XMS_ITS | CCD ---
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 Welder Name Role Phone Harrison Durham Primary Care Provider Leona vailable Harrison Durham Chronic Care Management U navailable Summary Purpose DataExchange Insurance Providers Payer name Policy type / Coverage type Covered green party ID Effective Begin Date Effective End Date Medicare [place] Medicare Part B [id number] Unknown Unknown Medicaid [place] Medicare Part B [id number] Unknown Unknown Family history Sister Brittany Suggs [...] Unknown Usp 09/03/[address]: 8308123 Non-Smoker / No History of Smoking 09/02/[address]: 191981420 No Alcohol Consum ption 09/02/2020 Allergies, Adverse Reactions, Alerts Substance Reaction Codes Entered Date Inactivated Date Status * NO KNOWN FOOD ALLERGIES Pqzkqzg7307/13/2023No Inactive DateActiveLISINOPRILRxNorm: 6488238No Inactive DateActiveMetformin GSsBcpnryf09/28/2020No Inactive DateActive* NO KNOWN ENVIRONMENTAL FPAHHKCAPNwreinj42/27/2024No Inactive DateActive Problems Condition Codes Effective Dates Condition St atus Lower extremity edema ICD-10: R60.0 ICD-9: 782.303/ctiveMajor depression, recurrentICD-10: F33.9 ICD-9: 296.3003/ctiveOnychogryposisICD-10: L60.2 ICD-9: 703.803/ctivePVD (peripheral vascular disease)ICD-10: I73.9 ICD-9: 443.903/ctiveCoronary artery disease involving [place] coronary artery of [place] heart, angina presence unspecifiedICD-10: I25.10 ICD-9: 414.01007/15/2023ctiveConstipation by delayed colonic transitICD-10: K59.01 ICD-9: 564.01006/15/2023ctiveDiabetic neuropathy associated with type 2 diabetes mellitusICD-10: E11.40 ICD-9: 250.60006/15/2023ctiveHx of deep venous thrombosisICD-10: Z86.718 ICD-9: V12.51006/15/2023ctiveType 2 diabetes mellitus with diabetic polyneuropathy, with long-term current use of insulinICD-10: E11.42 ICD-9: 250.60006/15/2023ctiveHypertensive heart disease without heart failure ICD-10: I11.9 ICD-9: 402.9012/ctiveReducible umbilical herniaICD-10: K42.9 ICD-9: 553.111/ctiveBMI 60.0-69.9, adultICD-10: Z68.44 ICD-9: V85.4410ctiveCandidal intertrigoICD-10: B37.2 ICD-9: 112.310/ctiveHyperlipidemia associated with type 2 diabetes mellitusICD-10: E11.69 ICD-9: 250.8010ctiveHyperlipidemia, unspecifiedICD-10: E78.5 ICD-9: 272.410/ctiveStage 2 chronic 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ICD-10: E11.22 ICD-9: 250.4010ctiveInappropriate sexual behaviorICD-10: Z72.89 ICD-9: 312.8910ctiveLearning disabilityICD-10: F81.9 ICD-9: 315.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 (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) drug therapyICD-10: Z79.899 ICD-9: V58.6910/ctiveRecurrent major depressive disorder, in partial remissionICD-10: F33.41 ICD-9: 296.3510/ctiveAnnual physical examICD-10: Z00.00 ICD-9: V70.009/ctiveEncounter for other specified special examinations ICD-10: Z01.89 ICD-9: V72.8509/ctiveEncounter for screening for nutritional disorder ICD-10: Z13.21 ICD-9: V77.9909/ctiveHypokalemiaICD-10: E87.6 ICD-9: 276.807/ctiveTinea pedis of both feetICD-10: B35.3 ICD-9: 110.407/ctiveParaparesis of both lower limbsICD-10: G82.20 ICD-9: 344.106/ctivePain of right heelICD-10: M79.671 ICD-9: 729.505/ctiveAmputated toe of right footICD-10: S98.131A ICD-9: 895.003/ctivePre-op evaluationICD-10: Z01.818 ICD-9: V72.8403/ctiveSecondary hypertensionICD-10: I15.9 ICD-9: 405.9903/ctiveVitamin D deficiencyICD-10: E55.9 ICD-9: 268.912/ctiveShortness of breathICD-10: R06.02 ICD-9: 786.0511/ctiveSeizure disorderICD-10: G40.909 ICD-9: 345.9011/ctiveCellulitisICD-10: L03.90 ICD-9: 682.910/ctiveHypercoagulable stateICD-10: D68.59 ICD-9: 289.8109/27/2022ActiveDepressionICD-10: F32.9 ICD-9: 74464/2ResolvedDVT (deep venous thrombosis)ICD-10: I82.409 ICD-9: 453.4009esolvedEncounter for immunizationICD-10: Z23 ICD-9: V03.89092ResolvedLong term (current) use of insulinICD-10: Z79.4 02/10/2022esolvedMuscular painICD-10: M79.10 ICD-9: 729.109esolvedDandruff in adultICD-10: L21.0 ICD-9: 690.1802ActiveHypertension associated with diabetesICD-10: E11.59 ICD-9: 250.8002ResolvedHistory of anemia due to CKDICD-10: N18.9 ICD-9: 585.9072ActiveStage 2 chronic kidney diseaseICD-10: N18.2 ICD-9: 585.2072ActiveGout due to renal impairmentICD-10: M10.30 ICD-9: 274.10062ActiveSkin tagICD-10: L91.8 ICD-9: 701.9111ActiveCallus of heelICD-10: L84 ICD-9: 375251ActiveImpacted cerumen, left earICD-10: H61.22 ICD-9: 380.4081ActiveContact with [...] Z20.828 ICD-9: V01.79021ResolvedHyperhidrosis of palmsICD-10: L74.512 ICD-9: 705.6306ObupupJdplncytAsgtemr70/28/2020ActiveDiabetes mellitus Type 7Znjcshr04/28/2020ActiveAnemia in chronic kidney diseaseICD-10: D63.1 02/12/2020ResolvedHyperlipidemia, unspecifiedICD-10: E78.Resolved Medications Medication Codes Instructions Start Date Stop Date Status Fill Instructions rosuvastatin 40 mg tablet RxNorm: 021080 Take 1 Tablet(s) Oral QPM every evening 07/13/19 24 No Stop Date Active ezetimibe 10 mg tablet RxNorm: 464248 Take 1 Tablet(s) Oral QD 07/13/19 24 No Stop Date Active bisacodyl 10 mg rectal suppository RxNorm: 969334 Insert 1 Suppository Rectal QD as needed 07/13/19 24 No Stop Date Active polyethylene glycol 3350 17 gram/dose oral powder RxNorm: 401162 Take 17 Gram(s) Oral BID as needed mix in 4-8ox water 07/13/19 24 No Stop Date Active ketoconazole 2 % shampoo RxNorm: 290557 Apply 1 Application Topical UD as directed 07/13/19 24 No Stop Date Active aripiprazole 15 mg tablet RxNorm: 095125 Take 1/2 Tablet(s) Oral QD 07/13/19 24 No Stop Date Active Ozempic 1 mg/dose (4 mg/3 mL) subcutaneous pen injector RxNorm: 1043432 Inject 1 Milligram(s) Subcutaneous QW once a week 07/13/19 24 No Stop Date Active Guaifenesin AC 10 mg-100 mg/5 mL oral liquid RxNorm: 821523 Take 10 Milliliter(s) Oral Q4H every four hours as needed 07/13/19 24 No Stop Date Active isosorbide mononitrate ER 60 mg tablet,extended release 24 hr RxNorm: 660028 Take 1 Tablet(s) Oral QD 07/13/19 24 No Stop Date Active ammonium lactate 12 % topical cream RxNorm: 095093 Apply 1 Application Topical BID 07/13/19 24 No Stop Date Active hydrocortisone 2.5 % topical cream RxNorm: 652234 Apply 1 Application Topical BID as needed 07/13/19 24 No Stop Date Active rosuvastatin 20 mg sprinkle capsule RxNorm: 5292111 Take 1 Capsule(s) Oral QD 07/13/19 24 No Stop Date Active Vascepa 1 gram capsule RxNorm: 8711274 Take 2 Capsule(s) Oral BID 07/13/19 24 No Stop Date Active venlafaxine ER 75 mg capsule,extended release 24 hr RxNorm: 058802 Take 3 Capsule(s) Oral QD 07/13/19 24 No Stop Date Active Basaglar KwikPen U-100 Insulin 100 unit/mL (3 mL) subcutaneous RxNorm: 3859105 Inject 30U SubQ twice daily 07/07/19 24 025 Active Please dispense one month supply. Basaglar KwikPen U-100 Insulin 100 unit/mL (3 mL) subcutaneous RxNorm: 8921009 Inject 30U SubQ twice daily 07/07/19 24 024 Inactive Please dispense one month supply. pregabalin 150 mg capsule RxNorm: 749397 Take 1 Capsule(s) Oral QHS every night at bedtime 07/05/19 24 024 Active pregabalin 150 mg capsule RxNorm: 836635 Take 1 Capsule(s) Oral QHS every night at bedtime 07/05/19 24 024 Inactive polyethylene glycol 3350 17 gram/dose oral powder RxNorm: 873377 Take 1 Packet Oral QD as needed (1 packet = 17g) mix with 4-8oz of liquid 06/15/19 24 024 Inactive bisacodyl 10 mg rectal suppository RxNorm: 898819 Insert one suppository per rectum once daily as needed for constipation 06/15/19 24 024 Inactive bisacodyl 10 mg rectal suppository RxNorm: 055729 Insert one suppository per rectum once daily as needed for constipation 06/15/19 24 024 Inactive pregabalin 100 mg capsule RxNorm: 331528 Take 1 Capsule(s) Oral QAM every morning 04/27/20 024 Inactive Levemir FlexPen 100 unit/mL (3 mL) solution subcutaneous insulin pen RxNorm: 512025 Inject 30 Unit(s) Subcutaneous BID 04/27/20 23 024 Inactive rosuvastatin 40 mg tablet RxNorm: 459478 Take 1 Tablet(s) Oral QPM every evening 04/16/20 024 Inactive D/C rosuvastatin 20mg venlafaxine ER 75 mg capsule,extended release 24 hr RxNorm: 310345 Take 3 Capsule(s) Oral QD 04/14/20 023 Inactive pregabalin 100 mg capsule RxNorm: 535288 Take 1 Capsule(s) Oral QAM every morning [...] meter clotrimazole 1 % topical cream RxNorm: 810797 Take apply topically to abdominal folds twice daily for 14 days 03/12/20 024 Inactive Ozempic 1 mg/dose (4 mg/3 mL) subcutaneous pen injector RxNorm: 6248573 Inject 1 Milligram(s) Subcutaneous QW once a week 03/11/20 23 023 Inactive rosuvastatin 20 mg tablet RxNorm: 535612 Take 1 Tablet(s) Oral QD 02/26/20 023 Inactive d/c pravastatin 80mg Ozempic 1 mg/dose (4 mg/3 mL) subcutaneous pen injector RxNorm: 3767049 Inject 1 Milligram(s) Subcutaneous QW once a week 02/20/20 23 023 Inactive pregabalin 150 mg capsule RxNorm: 411405 Take 1 Capsule(s) Oral HS at bed time 02/19/20 23 023 Inactive pregabalin 100 mg capsule RxNorm: 480186 Take 1 Capsule(s) Oral QAM every morning 02/18/20 23 023 Inactive venlafaxine ER 75 mg capsule,extended release 24 hr RxNorm: 701473 Take 3 Capsule(s) Oral QD 02/04/20 23 023 Inactive FreeStyle Chema 2 Sensor kit RxNorm: use as directed 02/04/20 23 023 Inactive FreeStyle Chema 2 Sensor kit RxNorm: use as directed 02/04/20 23 024 Inactive fluconazole 150 mg tablet RxNorm: 266102 Take 1 Tablet(s) Oral on day 3 and on day 6 02/03/20 23 024 Active chlorthalidone 25 mg tablet RxNorm: 812542 Take 1 Tablet(s) Oral QAM every morning 02/03/20 23 No Stop Date Active venlafaxine ER 150 mg capsule,extended release 24 hr RxNorm: 325173 Take 1 Capsule(s) Oral QD 02/03/20 23 023 Inactive acetaminophen 500 mg tablet RxNorm: 624769 1 TABLET ORALLY 3 TIMES DAILY (MAX APAP:4GM/24HR) 12/15/19 23 023 Inactive potassium chloride ER 20 mEq tablet,extended release RxNorm: 773580 Take 1 Tablet(s) Oral BID 12/09/19 23 024 Inactive d/c 20mEq once daily (sent from hospital) clotrimazole 1 % topical cream RxNorm: 405558 apply 1g topically to top of feet and in between toes BID 12/09/19 23 023 Inactive nystatin 100,000 unit/gram topical powder RxNorm: 643601 APPLY TO AFFECTED AREAS TOPICALLY 2 TIMES DAILY 11/21/19 23 024 Inactive Nystop 100,000 unit/gram topical powder RxNorm: 853076 Apply to abd folds, under breasts and L side of groin Topical BID x 14 days, then BID PRN 11/20/19 23 023 Inactive dx: yeast dermatitis Bengay Ultra Strength 4 %-30 %-10 % topical cream RxNorm: 461587 Apply 1 Gram(s) Topical QID PRN to feet and legs for neuropathic pain 11/11/19 024 Active hydrocortisone 2.5 % topical cream RxNorm: 638758 Apply 1/2 Gram(s) Topical BID as needed 11/10/19 024 Inactive clotrimazole 1 % topical cream RxNorm: 524368 Apply 1/2 Gram(s) Topical BID Apply to affected areas of groin, periarea, and abdominal topically 2 times daily 11/10/19 023 Inactive Humulin R U-500 (Concentrated) Insulin 500 unit/mL subcutaneous soln RxNorm: 055344 Inject 100 Unit(s) Subcutaneous TID 10/07/19 024 Inactive Levemir FlexPen 100 unit/mL (3 mL) solution subcutaneous insulin pen RxNorm: 283045 Inject 30 Unit(s) Subcutaneous BID 10/07/19 023 Inactive Ozempic 0.25 mg or 0.5 mg (2 mg/3 mL) subcutaneous pen injector RxNorm: 7712423 Inject 1/2 Milligram(s) Subcutaneous QW once a week 10/07/19 024 Inactive aripiprazole 15 mg tablet RxNorm: 777767 1/2 TAB (7.5MG) ORALLY DAILY (DX:MAJOR DEPRESSIVE DISORDER) 09/23/19 023 Inactive Lancets,Thin 28 gauge RxNorm: Use 1 as directed QID 09/15/19 23 024 Inactive Accu-Chek Guide test strips RxNorm: Use 1 Test Strip QID 09/15/19 023 Inactive ok to substitute with any covered alternative test strip torsemide 20 mg tablet RxNorm: 485120 Take 1 Tablet(s) Oral BID 09/09/19 024 Inactive d/c once daily dosing carvedilol 25 mg tablet RxNorm: 467045 Take 1 Tablet(s) Oral QD 08/25/19 024 Inactive pregabalin 150 mg capsule RxNorm: 869395 1 Capsule(s) Oral HS at bed time 08/18/19 23 023 Inactive pregabalin 100 mg capsule RxNorm: 913337 1 Capsule(s) Oral QAM every morning 08/18/19 23 023 Inactive carvedilol 25 mg tablet RxNorm: 090402 1 Tablet(s) Oral QD 07/28/19 23 023 Inactive lisinopril 20 mg tablet RxNorm: 908474 Give 1 Tablet(s) Oral QD 07/28/19 23 023 Inactive Lyrica 150 mg capsule RxNorm: 613648 Take 1 Capsule(s) Oral QHS every night at bedtime 07/19/19 023 Inactive d/c 100mg dose Diflucan 150 mg tablet RxNorm: 626513 Take 1 Tablet(s) Oral QD repeat on day 3 and 6 07/19/19 023 Inactive pregabalin 100 mg capsule RxNorm: 678965 Take 1 Capsule(s) Oral QAM every morning 07/19/19 023 Inactive gatifloxacin 0.5 % eye drops RxNorm: 718391 Instill 1 Drop(s) as directed TID Instill 1 drop in to affected eye(s) starting 1 day prior to surgery and continue until gone (do not exceed 4 weeks). 07/13/19 023 Inactive carvedilol 25 mg tablet RxNorm: 330137 2 Tablet(s) Oral BID 07/13/19 23 023 Inactive Humulin R Regular U-100 Insulin 100 unit/mL injection solution RxNorm: 148170 85 Unit(s) Injection TID 07/13/19 23 023 Inactive ketorolac 0.5 % eye drops RxNorm: 711291 Instill 1 Drop(s) as directed QID Instill 1 drop into affected eye(s) 4 times daily starting 1 day prior to surgery and continue until gone (do not exceed 4 weeks). 07/13/19 23 023 Inactive Diflucan 150 mg tablet RxNorm: 591887 Take 1 Tablet(s) Oral QD repeat on day 3 and 6 02 023 Inactive Accu-Chek Guide test strips RxNorm: Use 1 Test Strip QID Use 1 test strip to monitor blood glucose 4 times daily and as needed. Dx:E11.42. 06/23/19 023 Inactive ok to substitute with any covered alternative test strip dextromethorphan-gu aifenesin 10 mg-100 mg/5 mL oral liquid RxNorm: 106470 Take 10 Milliliter(s) Oral every 4 hours as needed for cough 06/19/19 023 Inactive dextromethorphan-gu aifenesin 10 mg-100 mg/5 mL oral liquid RxNorm: 463717 Take 10 Milliliter(s) Oral every 4 hours as needed for cough 06/19/19 023 Inactive Lyrica 150 mg capsule RxNorm: 247211 Take 1 Capsule(s) Oral QHS every night at bedtime 06/18/19 023 Inactive d/c 100mg dose aripiprazole 15 mg tablet RxNorm: 519632 1/2 TAB (7.5MG) ORALLY DAILY (DX:MAJOR DEPRESSIVE DISORDER) 06/05/19 023 Inactive pregabalin 100 mg capsule RxNorm: 360902 1 Capsule(s) Oral QAM every morning 06/02/19 023 Inactive Banophen 50 mg capsule RxNorm: 2588965 Take 1 Capsule(s) Oral Q6H every 6 hours as needed 05/19/19 23 No Stop Date Active Novolog Flexpen U-100 Insulin aspart 100 unit/mL (3 mL) subcutaneous RxNorm: 7071329 Inject 10 Unit(s) Subcutaneous QHS every night at bedtime with nighttime snack 04/08/20 022 Inactive Novolog Flexpen U-100 Insulin aspart 100 unit/mL (3 mL) subcutaneous RxNorm: 5777486 Inject 42 Unit(s) Subcutaneous TID in addition to sliding scale 04/08/20 022 Inactive d/c 36u albuterol sulfate HFA 90 mcg/actuation aerosol inhaler RxNorm: 7961574 Take 2 Puff(s) Inhalation Q4H every four hours as needed as needed for SOB, cough, or wheezing 04/07/20 030 Active Banophen 50 mg capsule RxNorm: 4036240 Take 1 Capsule(s) Oral Q6H every 6 hours as needed 04/06/20 023 Inactive diphenhydramine 50 mg tablet RxNorm: 5184036 Take 1 Tablet(s) Oral Q6H every 6 hours as needed 04/06/20 022 Inactive diphenhydramine 50 mg tablet RxNorm: 9422740 1 Tablet(s) Oral Q6H every 6 hours as needed 04/06/20 022 Inactive Abilify 15 mg tablet RxNorm: 118122 1/2 Tablet(s) Oral QD 03/10/20 023 Inactive Shingrix (PF) 50 mcg/0.5 mL intramuscular suspension, kit RxNorm: 3551368 Administer 1/2 Milliliter(s) Intramuscular QD one time shingrix step 2 ( step 1 given 11/04/21) WITH needle - Nursing please administer upon arrival and once administered post a 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 message 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, 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, 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, and lot# so we can update [facility] 02/18/20 22 022 Inactive dispense with needle Shingrix (PF) 50 mcg/0.5 mL intramuscular suspension, kit RxNorm: 0164855 Administer 1/2 Milliliter(s) Intramuscular QD one time shingrix step 2 ( step 1 given 11/04/21) WITH needle - Nursing please administer upon arrival and once administered post a bridge message 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, 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, 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, and lot# so we can update [facility] 02/18/20 22 022 Inactive dispense with needle polyethylene glycol 3350 17 gram/dose oral powder RxNorm: 244968 Take 17=1 capful Gram(s) Oral QD mix with 4-8oz of liquid 01/08/20 023 Inactive take this in addition to BID prn order Lyrica 100 mg capsule RxNorm: 201587 Take 1 Capsule(s) Oral QAM every morning 01/08/20 22 022 Inactive d/c 50mg dose acetaminophen 500 mg tablet RxNorm: 781007 Take 1 Tablet(s) Oral TID 01/08/20 22 022 Inactive d/c PRN order Lyrica 150 mg capsule RxNorm: 165704 Take 1 Capsule(s) Oral QHS every night at bedtime 01/08/20 22 023 Inactive d/c 100mg dose Abilify 5 mg tablet RxNorm: 578587 Take 1 Tablet(s) Oral QD take 1 tab po QD #30 refill 5 dx: MDD 12/12/19 22 022 Inactive Abilify 5 mg tablet RxNorm: 229617 Take 1 Tablet(s) Oral QD take 1 tab po QD #30 refill 5 dx: MDD 12/12/19 22 022 Inactive Novolog Flexpen U-100 Insulin aspart 100 unit/mL (3 mL) subcutaneous RxNorm: 2119563 Inject 42 Unit(s) Subcutaneous TID in addition to sliding scale 12/10/19 22 Inactive d/c 36u chlorthalidone 25 mg tablet RxNorm: 017707 Take 1 Tablet(s) Oral QAM every morning 12/10/19 22 023 Inactive pregabalin 50 mg capsule RxNorm: 947859 Take 1 Capsule(s) Oral QAM every morning 11/12/19 22 022 Inactive tetanus-diphtheria toxoids-Td 2 Lf unit-2 Lf unit/0.5 mL IM suspension RxNorm: 139 Take 0.5 Miscellaneous Intramuscular 11/12/19 22 022 Inactive need tdap - nursing to administer upon arrival pregabalin 50 mg capsule RxNorm: 248580 Take 1 Capsule(s) Oral QAM every morning 10/16/19 22 022 Inactive pregabalin 50 mg capsule RxNorm: 314444 Take 1 Capsule(s) Oral QAM every morning 10/16/19 22 022 Inactive pregabalin 50 mg capsule RxNorm: 526572 1 Capsule(s) Oral QAM every morning 10/15/19 22 022 Inactive Shingrix (PF) 50 mcg/0.5 mL intramuscular suspension, kit RxNorm: 1138695 Administer 1/2 Milliliter(s) Intramuscular one time Nursing please administer upon arrival and once administered post a bridge message 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 10/09/19 22 022 Inactive shingrix step 1 cholecalciferol (vitamin D3) 1,250 mcg (50,000 unit) capsule RxNorm: 759022 Take 1 Capsule(s) Oral QW once a [...] aspart 100 unit/mL (3 mL) subcutaneous RxNorm: 4443422 Inject 10 Unit(s) Subcutaneous QHS every night at bedtime with nighttime snack 10/08/19 22 Inactive Shingrix (PF) 50 mcg/0.5 mL intramuscular suspension, kit RxNorm: 3815158 ADMINISTER 2-DOSE SERIES PER CDC GUIDELINES 10/08/19 22 Active Shingrix (PF) 50 mcg/0.5 mL intramuscular suspension, kit RxNorm: 3049818 ADMINISTER 2-DOSE SERIES PER CDC GUIDELINES 10/08/19 22 Inactive Novolog Flexpen U-100 Insulin aspart 100 unit/mL (3 mL) subcutaneous RxNorm: 5210631 Inject 36 Unit(s) Subcutaneous TID in addition to sliding scale 10/08/19 22 07/25/2 022 Inactive Novofine Autocover 30 gauge x 1/3 needle RxNorm: Use 1 Miscellaneous UD as directed Use 1 needle as directed to administer insulin 5 times a day Dx:E11.42. 10/03/19 Inactive ok to substitute with any covered alternative pen needle benzoyl peroxide 10 % topical cleanser RxNorm: 134917 Apply 1 Application Topical QD apply to face, wash rinse and dry once daily (may change to QOD if drying) 08/19/19 022 Inactive (%covered by insurance) #60ml refill 11 dx: acne benzoyl peroxide 10 % topical cleanser RxNorm: 344110 Apply 1 Application Topical QD apply to face, wash rinse and dry once daily (may change to QOD if drying) 08/19/19 22 022 Inactive (%covered by insurance) #60ml refill 11 dx: acne benzoyl peroxide 10 % topical cleanser RxNorm: 148348 Apply 1 Application Topical QD apply to face, wash rinse and dry once daily (may change to QOD if drying) 08/19/19 022 Inactive (%covered by insurance) #60ml refill 11 dx: acne Lyrica 50 mg capsule RxNorm: 999505 Take 1 Capsule(s) Oral QAM every morning Take 1 capsule by mouth once daily 08/19/19 22 022 Inactive benzoyl peroxide 10 % topical cleanser RxNorm: 673736 Apply 1 Application Topical QD apply to face, wash rinse and dry once daily (may change to QOD if drying) 08/19/19 022 Inactive (%covered by insurance) #60ml refill 11 dx: acne Lyrica 100 mg capsule RxNorm: 012487 Take 1 Capsule(s) Oral QHS every night at bedtime Take 1 capsule by mouth once daily at bedtime 08/19/19 22 022 Inactive Lyrica 100 mg capsule RxNorm: 913640 Take 1 Capsule(s) Oral QHS every night at bedtime Take 1 capsule by mouth once daily at bedtime 08/16/19 22 022 Inactive Lyrica 50 mg capsule RxNorm: 237962 Take 1 Capsule(s) Oral QAM every morning Take 1 capsule by mouth once daily 08/16/19 22 022 Inactive Levemir FlexTouch U-100 Insulin 100 unit/mL (3 mL) subcutaneous pen RxNorm: 082752 Inject 86 Unit(s) Subcutaneous BID 08/05/19 22 022 Inactive d/c 83units BID Lyrica 100 mg capsule RxNorm: 204870 Take 1 Capsule(s) Oral QHS every night at bedtime Take 1 capsule by mouth once daily at bedtime 07/14/19 22 022 Inactive Lyrica 50 mg capsule RxNorm: 438477 Take 1 Capsule(s) Oral QAM every morning Take 1 capsule by mouth once daily 07/14/19 22 022 Inactive Levemir FlexTouch U-100 Insulin 100 unit/mL (3 mL) subcutaneous pen RxNorm: 050442 Inject 83 Unit(s) Subcutaneous BID 07/08/19 22 [...] test strip hydralazine 50 mg tablet RxNorm: 078514 Take 1 Tablet(s) Oral QID 05/05/20 21 022 Inactive venlafaxine ER 225 mg tablet,extended release 24 hr RxNorm: 094214 Take 1 Tablet(s) Oral QD 05/05/20 21 Inactive venlafaxine ER 225 mg tablet,extended release 24 hr RxNorm: 992757 Take 1 Tablet(s) Oral QD 05/05/20 022 Inactive isosorbide mononitrate ER 30 mg tablet,extended release 24 hr RxNorm: 287585 Take 1 Tablet(s) Oral QD 05/05/20 024 Inactive hydralazine 50 mg tablet RxNorm: 206777 Take 1 Tablet(s) Oral QID 05/05/20 21 Inactive aspirin 81 mg tablet,delayed release RxNorm: 555983 Take 1 Tablet(s) Oral QD 03/31/20 022 Inactive Vitamin D2 1,250 mcg (50,000 unit) capsule RxNorm: 0399459 Take 1 Capsule(s) Oral QW once a week x 12 weeks 03/31/20 022 Inactive Vitamin D2 1,250 mcg (50,000 unit) capsule RxNorm: 2020695 Take 1 Capsule(s) Oral QW once a week 03/31/20 021 Inactive Zetia 10 mg tablet RxNorm: 575655 Take 1 Tablet(s) Oral QD 03/31/20 21 024 Inactive Zetia 10 mg tablet RxNorm: 620342 Take 1 Tablet(s) Oral QD 03/31/20 21 021 Inactive hydralazine 25 mg tablet RxNorm: 449247 Take 1 Tablet(s) Oral QID 03/31/20 021 Inactive hydralazine 25 mg tablet RxNorm: 468518 Take 1 Tablet(s) Oral QID 03/31/20 021 Inactive hydralazine 10 mg tablet RxNorm: 078616 Take 1 Tablet(s) Oral QID 03/03/20 021 Inactive cephalexin 500 mg tablet RxNorm: 607473 Take 1 Tablet(s) Oral QID 02/27/20 021 Inactive cephalexin 500 mg tablet RxNorm: 692013 Take 1 Tablet(s) Oral QID 02/27/20 021 Inactive lisinopril 40 mg tablet RxNorm: 503855 Take 1 Tablet(s) Oral QD 02/11/20 023 Inactive Eliquis 5 mg tablet RxNorm: 5048892 Take 1 Tablet(s) Oral BID 01/05/20 022 Inactive Eliquis 5 mg tablet RxNorm: 9630475 Take 2 Tablet(s) Oral QD 01/01/20 021 Inactive Lyrica 50 mg capsule RxNorm: 111925 Take 1 Capsule(s) Oral QAM every morning 12/24/19 021 Inactive Lyrica 100 mg capsule RxNorm: 071777 Take 1 Capsule(s) Oral QHS every night at bedtime 12/24/19 021 Inactive clotrimazole 1 % topical cream RxNorm: 913954 Apply to right foot and toes Topical BID 12/04/19 21 023 Inactive metoprolol succinate ER 200 mg tablet,extended release 24 hr RxNorm: 113699 Take 1 Tablet(s) Oral QD 12/04/19 21 023 Inactive ciprofloxacin 500 mg tablet RxNorm: 751118 Take 1 Tablet(s) Oral QD 11/30/19 21 021 Inactive DX ofloxacin otic drops Accu-Chek Guide test strips RxNorm: USE 1 TO CHECK GLUCOSE 4 TIMES DAILY AND NEEDED 11/15/19 21 023 Inactive Blood Glucose Test strips RxNorm: Use 1 Test Strip QID at PRN 11/05/19 21 023 Inactive E11.42 lisinopril 30 mg tablet RxNorm: 490317 Take 1 Tablet(s) Oral QD 10/30/19 21 021 Inactive lisinopril 20 mg tablet RxNorm: 264720 Take 1 Tablet(s) Oral QD 10/23/19 21 021 Inactive lisinopril 20 mg tablet RxNorm: 682197 Take 1 Tablet(s) Oral QD 10/23/19 21 021 Inactive lisinopril 10 mg tablet RxNorm: 596341 Take 1 Tablet(s) Oral QD 10/02/19 21 021 Inactive icosapent ethyl 1 gram capsule RxNorm: 2174877 Take 2 Capsule(s) (2 gm) Oral BID with meals 09/12/19 21 024 Inactive Okay to dispense one 2gm tab if you have that available. icosapent ethyl 1 gram capsule RxNorm: 2024352 Take 2 Capsule(s) Oral BID 09/12/19 21 021 Inactive Okay to dispense one 2gm tab if you have that available. amlodipine 10 mg tablet RxNorm: 303636 Take 1 Tablet(s) Oral QD 09/04/19 21 022 Inactive aspirin 81 mg tablet,delayed release RxNorm: 827204 Take 1 Tablet(s) Oral QD 09/04/19 21 021 Inactive Levemir FlexTouch U-100 Insulin 100 unit/mL (3 mL) subcutaneous pen RxNorm: 840903 Inject 150 Unit(s) Subcutaneous BID 09/04/19 21 022 Inactive venlafaxine ER 150 mg tablet,extended release 24 hr RxNorm: 418557 Take 1 Tablet(s) Oral QD 09/04/19 21 021 Inactive clotrimazole-betame thasone 1 %-0.05 % topical cream RxNorm: 220915 Apply to rash on red area on left abdomen/chest Topical BID 08/10/19 21 021 Inactive amlodipine 5 mg tablet RxNorm: 972750 Take 1 Tablet(s) Oral QD 07/31/19 Inactive cephalexin 500 mg tablet RxNorm: 584692 Take 1 Tablet(s) Oral BID BID - Twice Daily 07/31/19 21 021 Inactive Start 08/01/20 pantoprazole 40 mg tablet,delayed release RxNorm: 665729 Take 1 Tablet(s) Oral QAM every morning 07/08/19 022 Inactive senna 8.6 mg tablet RxNorm: 633403 Take 1 Tablet(s) Oral QD 07/08/19 022 Inactive carbamazepine 200 mg tablet RxNorm: 688826 Take 1 Tablet(s) Oral BID 07/08/19 022 Inactive clopidogrel 75 mg tablet RxNorm: 394689 Take 1 Tablet(s) Oral QD 07/08/19 021 Inactive Blood Glucose Test strips RxNorm: Use 1 Test Strip QID at PRN 07/08/19 Inactive E11.42 Novolog Flexpen U-100 Insulin aspart 100 unit/mL (3 mL) subcutaneous RxNorm: 4927078 Administer per sliding scale Milliliter(s) Subcutaneous TID 151-200: 10 u; 201-250: 20 u; 251-300: 30 u; 301-350: 40 u; 351-400: 50 u. 07/08/19 022 Inactive lisinopril 5 mg tablet RxNorm: 973823 Take 1 Tablet(s) Oral QD 07/08/19 021 Inactive Novolog Flexpen U-100 Insulin aspart 100 unit/mL (3 mL) subcutaneous RxNorm: 2856266 Inject 85 Unit(s) Subcutaneous TID 07/08/19 022 Inactive pravastatin 80 mg tablet RxNorm: 811893 Take 1 Tablet(s) Oral QHS every night at bedtime 07/08/19 023 Inactive clotrimazole 1 % topical cream RxNorm: 352669 Apply to bilateral groin areas Topical BID 07/08/19 21 022 Inactive metoprolol succinate ER 200 mg tablet,extended release 24 hr RxNorm: 402670 Take 1 Tablet(s) Oral QD 02 021 Inactive Vitamin D3 25 mcg (1,000 unit) tablet RxNorm: 610247 Take 1 Tablet(s) Oral QD 07/08/19 Inactive isosorbide dinitrate 30 mg tablet RxNorm: 839270 Take 1 Tablet(s) Oral QD 07/08/19 021 Inactive Levemir FlexTouch U-100 Insulin 100 unit/mL (3 mL) subcutaneous pen RxNorm: 193703 Inject 140 Unit(s) Subcutaneous BID 07/08/19 021 Inactive torsemide 20 mg tablet RxNorm: 981251 Take 1 Tablet(s) Oral QD 07/08/19 023 Inactive venlafaxine 75 mg tablet RxNorm: 514898 Take 1 Tablet(s) Oral QD 07/08/19 021 Inactive acetaminophen 500 mg tablet RxNorm: 174395 Take 1 Tablet(s) Oral TID as needed for headache 06/18/19 021 Inactive acetaminophen 500 mg tablet RxNorm: 233180 Take 1 Tablet(s) Oral TID as needed for headache 06/18/19 021 Inactive Lyrica 100 mg capsule RxNorm: 279600 Take 1 Capsule(s) Oral QHS every night at bedtime 06/11/19 021 Inactive Lyrica 50 mg capsule RxNorm: 368782 Take 1 Capsule(s) Oral QAM every morning 06/10/19 021 Inactive hydrocortisone 2.5 % topical cream RxNorm: 057757 Apply to bilateral groin creases Topical BID 05/15/20 20 021 Inactive clotrimazole 1 % topical cream RxNorm: 411789 Apply to bilateral groin areas Topical BID 05/15/20 20 021 Inactive Lyrica 50 mg capsule RxNorm: 758788 Take 1 Capsule(s) Oral QAM every morning 05/14/20 20 Inactive Lyrica 100 mg capsule RxNorm: 199102 Take 1 Capsule(s) Oral QHS every night [...] Inactive Nystop 100,000 unit/gram topical powder RxNorm: 054680 Apply to abd folds, under breasts and L side of groin Topical BID x 14 days, then BID PRN 04/08/20 20 Inactive dx: yeast dermatitis Lyrica 100 mg capsule RxNorm: 859263 Take 1 Capsule(s) Oral QHS every night at bedtime 03/13/20 20 Inactive Lyrica 50 mg capsule RxNorm: 088238 Take 1 Capsule(s) Oral QAM every morning 03/13/20 20 Inactive ketoconazole 2 % shampoo RxNorm: 250429 Apply Topical two times a week with showers 03/11/20 20 024 Inactive cholecalciferol (vitamin D3) 50 mcg (2,000 unit) tablet RxNorm: 783559 Take 1 Tablet(s) Oral QD 03/11/20 20 021 Inactive Zetia 10 mg tablet RxNorm: 332604 Take 1 Tablet(s) Oral QD 03/07/20 20 021 Inactive Zetia 10 mg tablet RxNorm: 995079 Take 1 Tablet(s) Oral QD 03/07/20 20 Inactive Lyrica 50 mg capsule RxNorm: 316481 Take 1 Capsule(s) Oral QAM every morning 02/15/20 20 Inactive Lyrica 100 mg capsule RxNorm: 684892 Take 1 Capsule(s) Oral QHS every night at bedtime 02/15/20 Inactive Lyrica 100 mg capsule RxNorm: 263327 Take 1 Capsule(s) Oral QHS every night at bedtime 02/15/20 Inactive Lyrica 50 mg capsule RxNorm: 920059 Take 1 Capsule(s) Oral QAM every morning 02/15/20 Inactive metoprolol succinate ER 200 mg tablet,extended release 24 hr RxNorm: 808151 Take 1 Tablet(s) Oral QD 08/11 Activeloperamide 2 mg capsuleRxNorm: 100337Yypz 1 Capsule(s) Oral QID as needed 06/12/2021ctivehydralazine 50 mg tabletRxNorm: 156983Ocud 1 Tablet(s) Oral QID 08/11/2022ctivevenlafaxine ER 75 mg capsule,extended release 24 hrRxNorm: 936191Nmml 3 Capsule(s) Oral QD/Inactivepolyethylene glycol 3350 17 gram/dose oral powderRxNorm: 631134Qrgo 17=1 capful Gram(s) Oral BID as needed mix with 4-8oz of almdrb54/Inactiveicosapent ethyl 1 gram capsuleRxNorm: 5890677Odwy 2 Capsule(s) (2 gm) Oral BID with meals /InactiveOkay to dispense one 2gm tab if you have that available.Levemir FlexTouch U-100 Insulin 100 unit/mL (3 mL) subcutaneous pen RxNorm: 072146Cmjjqs 80 Unit(s) Subcutaneous BID/Inactive Novolog Flexpen U-100 Insulin aspart 100 unit/mL (3 mL) subcutaneousRxNorm: 8794247Kfmqfm 30 Unit(s) Subcutaneous TID with meals/Inactive Medication Administered No Medication Administered data Procedures Procedure Codes Date DEBRIDE NAIL 1-5 CPT-4: 79232 08/10/2023 Vital Signs Date Vital 08/10/2023 Heart Rate 1: 73 bpm Code: 8867-4 SpO2: 92% Temperature: 36.7 (C) / 98.0 (F) Reason For Visit No Reason For Visit data Encounters Encounter Performer Location Location Address Codes Cristiano e ([id number]) Home or Residence Vi sit Est Pt - Moderate Level, 40 mins Diagnosis: Lower extremity edema[ICD10: R60.0] Diagnosis: Major depression, recurrent[ICD10: F33.9] Diagnosis: Onychogryposis[ICD10: L60.2] Diagnosis: PVD (peripheral vascular disease)[ICD10: I73.9]Harrisoncarroll [place] [id number] [place]AVI [id number]-4: [id number]/10/2023 Plan of Care Planned Activity Notes Codes Status Date Appointment: Sandra Clark WPtel: [address] [facility] [address] [id number] [facility] Psych Follow Up12/09/2022ppointment: Tapan Shirley WPtel: [address] [facility] 300 [id number] [facility]10/26/2022Referral: [facility] [place] WPtel: [phone], [address] [id number] USReferralRecords Hcfwnqig89/08/2023ppointment: Tapan Shirley WPtel: [address] [facility] 300 [id number] USF/U008/11/2022ppointment: Tapan Shirley WPtel: [address] [facility] 300 [id number] USF/U007/14/2022ppointment: Tapan Shirley WPtel: [address] USF/U002/10/2022eferral: [facility] WPtel: [address] [facility] [address] [id number] LBIfxeydinBiojfdilc30/12/2022Referral: General CardiologyReferralCompleted 1Referral: General PsychologistReferralClosedReferral: General PsychiatristReferralPatient/Family [...] Sister Jyotsna involved in his care cell# [phone] Guardian: Giulia (tapan met in person 09/01/21), now has Lexii (same group as giulia)Lab Schedule: /September*September (CBC with diff, CMP, A1c) (Novemebr: CBC, CMP, A1c, Lipids, VitD) 10/08/2023 PVD (peripheral vascular dis ease) Peripheral vascular disease is stable with current medication regiment discussed in edema diagnosistile. Will continue with current plan of care. TEDs to be worn daily and elevation of legs while inchair.?? Lower extremity edema Mild non-pitting edema present. Currently taking Torsemide 20 mg BID along with potassium chloride 20 mEq BID. K lab 3.5 on 02.17.2023. Not wearing TEDs during visit today but does wear daily - staff have to help him put them on. Continue with current plan of care.?? Major depression, recurrent Denies any change from baseline for his depression, no new or worsening sadness or anxious feelings. Currently taking Abilify 7.5 mg BID and Venlafaxine 225 mg QD. Continue with current plan of care.Consider BHI.?? Onychogryposis Toenails debrided today.?? R) 2 L) 3?? Medical grade nail clipper used to reduce length and thickness. Will continue to monitor length at each visit and debride as needed.?? No signs of ingrown toenails or infection today.??.08/10/2023
--- OUTSIDE RECORDS SUMMARY | 2023-11-03 10:26 | XMS_ITS | CCD ---
Author Name Cecilio Durham feliberto Address [address] [place] [address] Phone Organization [facility] Phone Care Team Providers Care Preschool Teacher Aide Name Role Phone Harrison Durham Primary Care Provider Leona vailable Harrison Durham Chronic Care Management U navailable Summary Purpose DataExchange Insurance Providers Payer name Policy type / Coverage type Covered democrat ID Effective Begin Date Effective End Date Medicare [place] Medicare Part B [id number] Unknown Unknown [place] Medicare Part B [id number] Unknown Unknown Family history Sister Brittany Suggs [...] Unknown Prison 09/03/[address]: 2846952 Non-Smoker / No History of Smoking 09/02/[address]: 398272991 No Alcohol Consum ption 09/02/2020 Allergies, Adverse Reactions, Alerts Substance Reaction Codes Entered Date Inactivated Date Status * NO KNOWN FOOD ALLERGIES Mwmnngr3007/13/2023No Inactive DateActiveLISINOPRILRxNorm: 9772257No Inactive DateActiveMetformin IJyWwbgpjh48/28/2020No Inactive DateActive* NO KNOWN ENVIRONMENTAL [id number]/27/2024No Inactive DateActive Problems Condition Codes Effective Dates Condition St atus Amputated toe of right foot ICD-10: S98. 131A ICD-9: 895.004/ctiveConstipation by delayed colonic transitICD-10: K59.01 ICD-9: 564.0104ctiveDiabetic neuropathy associated with type 2 diabetes mellitusICD-10: E11.40 ICD-9: 250.6004/ctiveHx of deep venous thrombosisICD-10: Z86.718 ICD-9: V12.5104ctiveHypercoagulable stateICD-10: D68.59 ICD-9: 289.8104ctiveHyperlipidemia associated with type 2 diabetes mellitusICD-10: E11.69 ICD-9: 250.8004ctiveHypertensive heart disease without heart failure ICD-10: I11.9 ICD-9: 402.9004ctiveOnychogryposisICD-10: L60.2 ICD-9: 703.804ctiveRecurrent major depressive disorder, in partial remissionICD-10: F33.41 ICD-9: 296.3504ctiveStage 2 chronic 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ICD-10: E11.22 ICD-9: 250.4004ctiveType 2 diabetes mellitus with diabetic polyneuropathy, with long-term current use of insulinICD-10: E11.42 ICD-9: 250.6004ctiveVitamin D deficiencyICD-10: E55.9 ICD-9: 268.904ctiveCellulitisICD-10: L03.90 ICD-9: 682.904esolvedDandruff in adultICD-10: L21.0 ICD-9: 690.18044ResolvedEncounter for other specified special examinationsICD-10: Z01.89 ICD-9: V72.8504/4ResolvedEncounter for screening for nutritional disorder ICD-10: Z13.21 ICD-9: V77.99044ResolvedImpacted cerumen, left earICD-10: H61.22 ICD-9: 380.404/esolvedShortness of breathICD-10: R06.02 ICD-9: 786.0504/23/2024ResolvedSkin tagICD-10: L91.8 ICD-9: 701.904/esolvedLower extremity edemaICD-10: R60.0 ICD-9: 782.303/ctiveMajor depression, recurrentICD-10: F33.9 ICD-9: 296.3003/ctivePVD (peripheral vascular disease)ICD-10: I73.9 ICD-9: 443.903/ctiveCoronary artery disease involving manzanita coronary artery of manzanita heart, angina presence unspecifiedICD-10: I25.10 ICD-9: 414.0102/ctiveReducible umbilical herniaICD-10: K42.9 ICD-9: 553.111/ctiveBMI 60.0-69.9, adultICD-10: Z68.44 ICD-9: V85.4410/ctiveCandidal intertrigoICD-10: B37.2 ICD-9: 112.310/ctiveHyperlipidemia, unspecifiedICD-10: E78.5 ICD-9: 272.410/ctiveInappropriate sexual behaviorICD-10: Z72.89 ICD-9: 312.8910/ctiveLearning disabilityICD-10: F81.9 ICD-9: 315.210/ctiveOther alf (current) drug therapyICD-10: Z79.899 ICD-9: V58.6910/ctiveAnnual physical examICD-10: Z00.00 ICD-9: V70.009/ctiveHypokalemiaICD-10: E87.6 ICD-9: 276.807/ctiveTinea pedis of both feetICD-10: B35.3 ICD-9: 110.407/ctiveParaparesis of both lower limbsICD-10: G82.20 ICD-9: 344.106/ctivePain of right heelICD-10: M79.671 ICD-9: 729.505/ctivePre-op evaluationICD-10: Z01.818 ICD-9: V72.8403/ctiveSecondary hypertensionICD-10: I15.9 ICD-9: 405.9903/ctiveSeizure disorderICD-10: G40.909 ICD-9: 345.90112ActiveDepressionICD-10: F32.9 ICD-9: 31404/esolvedDVT (deep venous thrombosis)ICD-10: I82.409 ICD-9: 453.4009esolvedEncounter for immunizationICD-10: Z23 ICD-9: V03.8909esolvedLong term (current) use of insulinICD-10: Z79.4 02/10/2022esolvedMuscular painICD-10: M79.10 ICD-9: 729.109esolvedHypertension associated with diabetesICD-10: E11.59 ICD-9: 250.8008esolvedHistory of anemia due to CKDICD-10: N18.9 ICD-9: 585.907ctiveStage 2 chronic kidney diseaseICD-10: N18.2 ICD-9: 585.207ctiveGout due to renal impairmentICD-10: M10.30 ICD-9: 274.1006ctiveCallus of heelICD-10: L84 ICD-9: 73904ctiveContact with and (suspected) exposure to covid-19ICD- 10: Z20.822 ICD-9: V01.7908esolvedOther infective acute otitis externa of left ear ICD-10: H60.392 ICD-9: 380.10012/31/2020esolvedScrotal skin lesionICD-10: N50.9 ICD-9: 608.908esolvedAnemia due to stage 3b chronic kidney diseaseICD- 10: N18.32 ICD-9: 285.2105/18/2021ResolvedChronic kidney disease, stage 3 unspecifiedICD- 10: N18.esolvedContact with and (suspected) exposure to other viral communicable diseasesICD-10: Z20.828 ICD-9: V01.791ResolvedHyperhidrosis of palmsICD-10: L74.512 ICD-9: 705.3648AgcxhbRbzxxcmgRzqeupa93/28/2020ActiveDiabetes mellitus Type 4Huaddmm37/28/2020ActiveAnemia in chronic kidney diseaseICD-10: D63.1 02/12/2020ResolvedHyperlipidemia, unspecifiedICD-10: E78.Resolved Medications Medication Codes Instructions Start Date Stop Date Status Fill Instructions pregabalin 100 mg capsule RxNorm: 187770 Take 1 Capsule(s) Oral QAM every morning 09/07/19 24 024 Active rosuvastatin 40 mg tablet RxNorm: 340775 Take 1 Tablet(s) Oral QPM every evening 07/13/19 24 No Stop Date Active ezetimibe 10 mg tablet RxNorm: 594884 Take 1 Tablet(s) Oral QD 07/13/19 24 No Stop Date Active bisacodyl 10 mg rectal suppository RxNorm: 979967 Insert 1 Suppository Rectal QD as needed 07/13/19 24 No Stop Date Active polyethylene glycol 3350 17 gram/dose oral powder RxNorm: 088653 Take 17 Gram(s) Oral BID as needed mix in 4-8ox water 07/13/19 24 No Stop Date Active ketoconazole 2 % shampoo RxNorm: 984742 Apply 1 Application Topical UD as directed 07/13/19 24 No Stop Date Active aripiprazole 15 mg tablet RxNorm: 582806 Take 1/2 Tablet(s) Oral QD 07/13/19 24 No Stop Date Active Ozempic 1 mg/dose (4 mg/3 mL) subcutaneous pen injector RxNorm: 3869717 Inject 1 Milligram(s) Subcutaneous QW once a week 07/13/19 24 No Stop Date Active Guaifenesin AC 10 mg-100 mg/5 mL oral liquid RxNorm: 263416 Take 10 Milliliter(s) Oral Q4H every four hours as needed 07/13/19 24 No Stop Date Active isosorbide mononitrate ER 60 mg tablet,extended release 24 hr RxNorm: 148484 Take 1 Tablet(s) Oral QD 07/13/19 24 No Stop Date Active ammonium lactate 12 % topical cream RxNorm: 315536 Apply 1 Application Topical BID 07/13/19 24 No Stop Date Active hydrocortisone 2.5 % topical cream RxNorm: 669883 Apply 1 Application Topical BID as needed 07/13/19 24 No Stop Date Active rosuvastatin 20 mg sprinkle capsule RxNorm: 5788187 Take 1 Capsule(s) Oral QD 07/13/19 24 No Stop Date Active Vascepa 1 gram capsule RxNorm: 0955202 Take 2 Capsule(s) Oral BID 07/13/19 24 No Stop Date Active venlafaxine ER 75 mg capsule,extended release 24 hr RxNorm: 562942 Take 3 Capsule(s) Oral QD 07/13/19 24 No Stop Date Active Basaglar KwikPen U-100 Insulin 100 unit/mL (3 mL) subcutaneous RxNorm: 2227469 Inject 30U SubQ twice daily 07/07/19 24 025 Active Please dispense one month supply. Basaglar KwikPen U-100 Insulin 100 unit/mL (3 mL) subcutaneous RxNorm: 3799255 Inject 30U SubQ twice daily 07/07/19 24 024 Inactive Please dispense one month supply. pregabalin 150 mg capsule RxNorm: 251912 Take 1 Capsule(s) Oral QHS every night at bedtime 07/05/19 24 024 Active pregabalin 150 mg capsule RxNorm: 161292 Take 1 Capsule(s) Oral QHS every night at bedtime 07/05/19 24 024 Inactive polyethylene glycol 3350 17 gram/dose oral powder RxNorm: 711801 Take 1 Packet Oral QD as needed (1 packet = 17g) mix with 4-8oz of liquid 06/15/19 24 024 Inactive bisacodyl 10 mg rectal suppository RxNorm: 826283 Insert one suppository per rectum once daily as needed for constipation 06/15/19 024 Inactive bisacodyl 10 mg rectal suppository RxNorm: 553690 Insert one suppository per rectum once daily as needed for constipation 06/15/19 024 Inactive pregabalin 100 mg capsule RxNorm: 828935 Take 1 Capsule(s) Oral QAM every morning 04/27/20 024 Inactive Levemir FlexPen 100 unit/mL (3 mL) solution subcutaneous insulin pen RxNorm: 246077 Inject 30 Unit(s) Subcutaneous BID 04/27/20 024 Inactive rosuvastatin 40 mg tablet RxNorm: 049667 Take 1 Tablet(s) Oral QPM every evening 04/16/20 024 Inactive D/C rosuvastatin 20mg venlafaxine ER 75 mg capsule,extended release 24 hr RxNorm: 263980 Take 3 Capsule(s) Oral QD 04/14/20 023 Inactive pregabalin 100 mg capsule RxNorm: 702262 Take 1 Capsule(s) Oral QAM every morning [...] meter clotrimazole 1 % topical cream RxNorm: 011245 Take apply topically to abdominal folds twice daily for 14 days 03/12/20 024 Inactive Ozempic 1 mg/dose (4 mg/3 mL) subcutaneous pen injector RxNorm: 5162666 Inject 1 Milligram(s) Subcutaneous QW once a week 03/11/20 023 Inactive rosuvastatin 20 mg tablet RxNorm: 015693 Take 1 Tablet(s) Oral QD 02/26/20 23 023 Inactive d/c pravastatin 80mg Ozempic 1 mg/dose (4 mg/3 mL) subcutaneous pen injector RxNorm: 4637771 Inject 1 Milligram(s) Subcutaneous QW once a week 02/20/20 023 Inactive pregabalin 150 mg capsule RxNorm: 380853 Take 1 Capsule(s) Oral HS at bed time 02/19/20 023 Inactive pregabalin 100 mg capsule RxNorm: 366199 Take 1 Capsule(s) Oral QAM every morning 02/18/20 023 Inactive venlafaxine ER 75 mg capsule,extended release 24 hr RxNorm: 084445 Take 3 Capsule(s) Oral QD 02/04/20 23 023 Inactive FreeStyle Chema 2 Sensor kit RxNorm: use as directed 02/04/20 23 023 Inactive FreeStyle Chema 2 Sensor kit RxNorm: use as directed 02/04/20 024 Inactive fluconazole 150 mg tablet RxNorm: 923403 Take 1 Tablet(s) Oral on day 3 and on day 6 02/03/20 024 Active chlorthalidone 25 mg tablet RxNorm: 019269 Take 1 Tablet(s) Oral QAM every morning 02/03/20 23 No Stop Date Active venlafaxine ER 150 mg capsule,extended release 24 hr RxNorm: 687295 Take 1 Capsule(s) Oral QD 02/03/20 023 Inactive acetaminophen 500 mg tablet RxNorm: 188093 1 TABLET ORALLY 3 TIMES DAILY (MAX APAP:4GM/24HR) 12/15/19 023 Inactive potassium chloride ER 20 mEq tablet,extended release RxNorm: 562662 Take 1 Tablet(s) Oral BID 12/09/19 23 024 Inactive d/c 20mEq once daily (sent from hospital) clotrimazole 1 % topical cream RxNorm: 658077 apply 1g topically to top of feet and in between toes BID 12/09/19 23 023 Inactive nystatin 100,000 unit/gram topical powder RxNorm: 566883 APPLY TO AFFECTED AREAS TOPICALLY 2 TIMES DAILY 11/21/19 23 024 Inactive Nystop 100,000 unit/gram topical powder RxNorm: 463314 Apply to abd folds, under breasts and L side of groin Topical BID x 14 days, then BID PRN 11/20/19 023 Inactive dx: yeast dermatitis Beng[place] Ultra Strength 4 %-30 %-10 % topical cream RxNorm: 882893 Apply 1 Gram(s) Topical QID PRN to feet and legs for neuropathic pain 11/11/19 024 Active hydrocortisone 2.5 % topical cream RxNorm: 198720 Apply 1/2 Gram(s) Topical BID as needed 11/10/19 024 Inactive clotrimazole 1 % topical cream RxNorm: 499417 Apply 1/2 Gram(s) Topical BID Apply to affected areas of groin, periarea, and abdominal topically 2 times daily 11/10/19 023 Inactive Humulin R U-500 (Concentrated) Insulin 500 unit/mL subcutaneous soln RxNorm: 032022 Inject 100 Unit(s) Subcutaneous TID 10/07/19 024 Inactive Levemir FlexPen 100 unit/mL (3 mL) solution subcutaneous insulin pen RxNorm: 349467 Inject 30 Unit(s) Subcutaneous BID 10/07/19 023 Inactive Ozempic 0.25 mg or 0.5 mg (2 mg/3 mL) subcutaneous pen injector RxNorm: 3401732 Inject 1/2 Milligram(s) Subcutaneous QW once a week 10/07/19 024 Inactive aripiprazole 15 mg tablet RxNorm: 621793 1/2 TAB (7.5MG) ORALLY DAILY (DX:MAJOR DEPRESSIVE DISORDER) 09/23/19 023 Inactive Lancets,Thin 28 gauge RxNorm: Use 1 as directed QID 09/15/19 23 024 Inactive Accu-Chek Guide test strips RxNorm: Use 1 Test Strip QID 09/15/19 23 023 Inactive ok to substitute with any covered alternative test strip torsemide 20 mg tablet RxNorm: 952265 Take 1 Tablet(s) Oral BID 04/25/20 23 06/10/2 024 Inactive d/c once daily dosing carvedilol 25 mg tablet RxNorm: 263866 Take 1 Tablet(s) Oral QD 08/25/19 23 024 Inactive pregabalin 150 mg capsule RxNorm: 229737 1 Capsule(s) Oral HS at bed time 08/18/19 23 023 Inactive pregabalin 100 mg capsule RxNorm: 521906 1 Capsule(s) Oral QAM every morning 08/18/19 23 023 Inactive carvedilol 25 mg tablet RxNorm: 652736 1 Tablet(s) Oral QD 07/28/19 23 023 Inactive lisinopril 20 mg tablet RxNorm: 264775 Give 1 Tablet(s) Oral QD 07/28/19 23 023 Inactive Lyrica 150 mg capsule RxNorm: 200874 Take 1 Capsule(s) Oral QHS every night at bedtime 07/19/19 23 023 Inactive d/c 100mg dose Diflucan 150 mg tablet RxNorm: 991259 Take 1 Tablet(s) Oral QD repeat on day 3 and 6 07/19/19 23 023 Inactive pregabalin 100 mg capsule RxNorm: 713293 Take 1 Capsule(s) Oral QAM every morning 07/19/19 23 023 Inactive gatifloxacin 0.5 % eye drops RxNorm: 325864 Instill 1 Drop(s) as directed TID Instill 1 drop in to affected eye(s) starting 1 day prior to surgery and continue until gone (do not exceed 4 weeks). 07/13/19 23 023 Inactive carvedilol 25 mg tablet RxNorm: 987809 2 Tablet(s) Oral BID 07/13/19 23 023 Inactive Humulin R Regular U-100 Insulin 100 unit/mL injection solution RxNorm: 720422 85 Unit(s) Injection TID 07/13/19 23 023 Inactive ketorolac 0.5 % eye drops RxNorm: 517669 Instill 1 Drop(s) as directed QID Instill 1 drop into affected eye(s) 4 times daily starting 1 day prior to surgery and continue until gone (do not exceed 4 weeks). 07/13/19 23 023 Inactive Diflucan 150 mg tablet RxNorm: 042712 Take 1 Tablet(s) Oral QD repeat on day 3 and 6 06/30/19 023 Inactive Accu-Chek Guide test strips RxNorm: Use 1 Test Strip QID Use 1 test strip to monitor blood glucose 4 times daily and as needed. Dx:E11.42. 06/23/19 023 Inactive ok to substitute with any covered alternative test strip dextromethorphan-gu aifenesin 10 mg-100 mg/5 mL oral liquid RxNorm: 458550 Take 10 Milliliter(s) Oral every 4 hours as needed for cough 06/19/19 023 Inactive dextromethorphan-gu aifenesin 10 mg-100 mg/5 mL oral liquid RxNorm: 424215 Take 10 Milliliter(s) Oral every 4 hours as needed for cough 06/19/19 023 Inactive Lyrica 150 mg capsule RxNorm: 121817 Take 1 Capsule(s) Oral QHS every night at bedtime 06/18/19 023 Inactive d/c 100mg dose aripiprazole 15 mg tablet RxNorm: 334597 1/2 TAB (7.5MG) ORALLY DAILY (DX:MAJOR DEPRESSIVE DISORDER) 06/05/19 23 023 Inactive pregabalin 100 mg capsule RxNorm: 105947 1 Capsule(s) Oral QAM every morning 06/02/19 023 Inactive Banophen 50 mg capsule RxNorm: 7804072 Take 1 Capsule(s) Oral Q6H every 6 hours as needed 05/19/19 23 No Stop Date Active Novolog Flexpen U-100 Insulin aspart 100 unit/mL (3 mL) subcutaneous RxNorm: 6260480 Inject 10 Unit(s) Subcutaneous QHS every night at bedtime with nighttime snack 04/08/20 22 022 Inactive Novolog Flexpen U-100 Insulin aspart 100 unit/mL (3 mL) subcutaneous RxNorm: 6431794 Inject 42 Unit(s) Subcutaneous TID in addition to sliding scale 04/08/20 022 Inactive d/c 36u albuterol sulfate HFA 90 mcg/actuation aerosol inhaler RxNorm: 7699574 Take 2 Puff(s) Inhalation Q4H every four hours as needed as needed for SOB, cough, or wheezing 04/07/20 030 Active Banophen 50 mg capsule RxNorm: 7521314 Take 1 Capsule(s) Oral Q6H every 6 hours as needed 04/06/20 023 Inactive diphenhydramine 50 mg tablet RxNorm: 4219125 Take 1 Tablet(s) Oral Q6H every 6 hours as needed 04/06/20 022 Inactive diphenhydramine 50 mg tablet RxNorm: 7920406 1 Tablet(s) Oral Q6H every 6 hours as needed 04/06/20 022 Inactive Abilify 15 mg tablet RxNorm: 711270 1/2 Tablet(s) Oral QD 03/10/20 023 Inactive Shingrix (PF) 50 mcg/0.5 mL intramuscular suspension, kit RxNorm: 8334340 Administer 1/2 Milliliter(s) Intramuscular QD one time shingrix step 2 ( step 1 given 11/04/21) WITH needle - Nursing please administer upon arrival and once administered post a bridge message with date of administration, thermoplastic technician, expiration date, and lot# so we can update [facility] 02/18/20 22 022 Inactive dispense with needle Shingrix (PF) 50 mcg/0.5 mL intramuscular suspension, kit RxNorm: 1926914 Administer 1/2 Milliliter(s) Intramuscular QD one time shingrix step 2 ( step 1 given 11/04/21) WITH needle - Nursing please administer upon arrival and once administered post a bridge message with date of administration, thermoplastic technician, expiration date, and lot# so we can update [facility] 02/18/20 22 022 Inactive dispense with needle polyethylene glycol 3350 17 gram/dose oral powder RxNorm: 916415 Take 17=1 capful Gram(s) Oral QD mix with 4-8oz of liquid 01/08/20 22 023 Inactive take this in addition to BID prn order Lyrica 100 mg capsule RxNorm: 109996 Take 1 Capsule(s) Oral QAM every morning 01/08/20 22 022 Inactive d/c 50mg dose acetaminophen 500 mg tablet RxNorm: 693045 Take 1 Tablet(s) Oral TID 01/08/20 22 022 Inactive d/c PRN order Lyrica 150 mg capsule RxNorm: 018197 Take 1 Capsule(s) Oral QHS every night at bedtime 01/08/20 22 023 Inactive d/c 100mg dose Abilify 5 mg tablet RxNorm: 662214 Take 1 Tablet(s) Oral QD take 1 tab po QD #30 refill 5 dx: MDD 12/12/19 22 022 Inactive Abilify 5 mg tablet RxNorm: 592528 Take 1 Tablet(s) Oral QD take 1 tab po QD #30 refill 5 dx: MDD 12/12/19 22 022 Inactive Novolog Flexpen U-100 Insulin aspart 100 unit/mL (3 mL) subcutaneous RxNorm: 8761265 Inject 42 Unit(s) Subcutaneous TID in addition to sliding scale 12/10/19 22 022 Inactive d/c 36u chlorthalidone 25 mg tablet RxNorm: 536364 Take 1 Tablet(s) Oral QAM every morning 12/10/19 22 023 Inactive pregabalin 50 mg capsule RxNorm: 157982 Take 1 Capsule(s) Oral QAM every morning 11/12/19 22 022 Inactive tetanus-diphtheria toxoids-Td 2 Lf unit-2 Lf unit/0.5 mL IM suspension RxNorm: 139 Take 0.5 Miscellaneous Intramuscular 11/12/19 22 022 Inactive need tdap - nursing to administer upon arrival pregabalin 50 mg capsule RxNorm: 120701 Take 1 Capsule(s) Oral QAM every morning 10/16/19 22 022 Inactive pregabalin 50 mg capsule RxNorm: 786864 Take 1 Capsule(s) Oral QAM every morning 10/16/19 22 022 Inactive pregabalin 50 mg capsule RxNorm: 359971 1 Capsule(s) Oral QAM every morning 10/15/19 22 022 Inactive Shingrix (PF) 50 mcg/0.5 mL intramuscular suspension, kit RxNorm: 2499105 Administer 1/2 Milliliter(s) Intramuscular one time Nursing please administer upon arrival and once administered post a bridge message with date of administration, thermoplastic 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 10/09/19 22 022 Inactive shingrix step 1 Shingrix (PF) 50 mcg/0.5 mL intramuscular suspension, kit RxNorm: 0792768 Administer 1/2 Milliliter(s) Intramuscular one time Nursing please administer upon arrival and once administered post a bridge message with date of administration, thermoplastic 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 10/09/19 22 022 Inactive shingrix step 1 cholecalciferol (vitamin D3) 1,250 mcg (50,000 unit) capsule RxNorm: 245966 Take 1 Capsule(s) Oral QW once a [...] aspart 100 unit/mL (3 mL) subcutaneous RxNorm: 4299850 Inject 10 Unit(s) Subcutaneous QHS every night at bedtime with nighttime snack 10/08/19 22 Inactive Shingrix (PF) 50 mcg/0.5 mL intramuscular suspension, kit RxNorm: 0917650 ADMINISTER 2-DOSE SERIES PER CDC GUIDELINES 10/08/19 22 Active Shingrix (PF) 50 mcg/0.5 mL intramuscular suspension, kit RxNorm: 4095062 ADMINISTER 2-DOSE SERIES PER CDC GUIDELINES 10/08/19 22 05/24/2 022 Inactive Novolog Flexpen U-100 Insulin aspart 100 unit/mL (3 mL) subcutaneous RxNorm: 0652302 Inject 36 Unit(s) Subcutaneous TID in addition to sliding scale 10/08/19 Inactive Novofine Autocover 30 gauge x 1/3 needle RxNorm: Use 1 Miscellaneous UD as directed Use 1 needle as directed to administer insulin 5 times a day Dx:E11.42. 10/03/19 Inactive ok to substitute with any covered alternative pen needle benzoyl peroxide 10 % topical cleanser RxNorm: 789852 Apply 1 Application Topical QD apply to face, wash rinse and dry once daily (may change to QOD if drying) 08/19/19 022 Inactive (%covered by insurance) #60ml refill 11 dx: acne benzoyl peroxide 10 % topical cleanser RxNorm: 643522 Apply 1 Application Topical QD apply to face, wash rinse and dry once daily (may change to QOD if drying) 08/19/19 022 Inactive (%covered by insurance) #60ml refill 11 dx: acne benzoyl peroxide 10 % topical cleanser RxNorm: 183533 Apply 1 Application Topical QD apply to face, wash rinse and dry once daily (may change to QOD if drying) 08/19/19 022 Inactive (%covered by insurance) #60ml refill 11 dx: acne Lyrica 50 mg capsule RxNorm: 926147 Take 1 Capsule(s) Oral QAM every morning Take 1 capsule by mouth once daily 08/19/19 022 Inactive benzoyl peroxide 10 % topical cleanser RxNorm: 783307 Apply 1 Application Topical QD apply to face, wash rinse and dry once daily (may change to QOD if drying) 08/19/19 022 Inactive (%covered by insurance) #60ml refill 11 dx: acne Lyrica 100 mg capsule RxNorm: 948567 Take 1 Capsule(s) Oral QHS every night at bedtime Take 1 capsule by mouth once daily at bedtime 08/19/19 22 Inactive Lyrica 100 mg capsule RxNorm: 470433 Take 1 Capsule(s) Oral QHS every night at bedtime Take 1 capsule by mouth once daily at bedtime 08/16/19 22 022 Inactive Lyrica 50 mg capsule RxNorm: 217385 Take 1 Capsule(s) Oral QAM every morning Take 1 capsule by mouth once daily 08/16/19 22 022 Inactive Levemir FlexTouch U-100 Insulin 100 unit/mL (3 mL) subcutaneous pen RxNorm: 544610 Inject 86 Unit(s) Subcutaneous BID 08/05/19 22 022 Inactive d/c 83units BID Lyrica 100 mg capsule RxNorm: 421326 Take 1 Capsule(s) Oral QHS every night at bedtime Take 1 capsule by mouth once daily at bedtime 07/14/19 22 022 Inactive Lyrica 50 mg capsule RxNorm: 696456 Take 1 Capsule(s) Oral QAM every morning Take 1 capsule by mouth once daily 07/14/19 22 022 Inactive Levemir FlexTouch U-100 Insulin 100 unit/mL (3 mL) subcutaneous pen RxNorm: 255857 Inject 83 Unit(s) Subcutaneous BID 07/08/19 22 [...] test strip hydralazine 50 mg tablet RxNorm: 050812 Take 1 Tablet(s) Oral QID 05/05/20 21 Inactive venlafaxine ER 225 mg tablet,extended release 24 hr RxNorm: 248093 Take 1 Tablet(s) Oral QD 05/05/20 Inactive venlafaxine ER 225 mg tablet,extended release 24 hr RxNorm: 890404 Take 1 Tablet(s) Oral QD 05/05/20 022 Inactive isosorbide mononitrate ER 30 mg tablet,extended release 24 hr RxNorm: 955152 Take 1 Tablet(s) Oral QD 05/05/20 024 Inactive hydralazine 50 mg tablet RxNorm: 140117 Take 1 Tablet(s) Oral QID 05/05/20 21 Inactive aspirin 81 mg tablet,delayed release RxNorm: 321631 Take 1 Tablet(s) Oral QD 03/31/20 21 022 Inactive Vitamin D2 1,250 mcg (50,000 unit) capsule RxNorm: 0504996 Take 1 Capsule(s) Oral QW once a week x 12 weeks 03/31/20 022 Inactive Vitamin D2 1,250 mcg (50,000 unit) capsule RxNorm: 9571404 Take 1 Capsule(s) Oral QW once a week 03/31/20 21 021 Inactive Zetia 10 mg tablet RxNorm: 881739 Take 1 Tablet(s) Oral QD 03/31/20 024 Inactive Zetia 10 mg tablet RxNorm: 554512 Take 1 Tablet(s) Oral QD 03/31/20 021 Inactive hydralazine 25 mg tablet RxNorm: 170827 Take 1 Tablet(s) Oral QID 03/31/20 021 Inactive hydralazine 25 mg tablet RxNorm: 447275 Take 1 Tablet(s) Oral QID 03/31/20 021 Inactive hydralazine 10 mg tablet RxNorm: 577228 Take 1 Tablet(s) Oral QID 03/03/20 021 Inactive cephalexin 500 mg tablet RxNorm: 729457 Take 1 Tablet(s) Oral QID 02/27/20 021 Inactive cephalexin 500 mg tablet RxNorm: 833690 Take 1 Tablet(s) Oral QID 02/27/20 021 Inactive lisinopril 40 mg tablet RxNorm: 925228 Take 1 Tablet(s) Oral QD 02/11/20 023 Inactive Eliquis 5 mg tablet RxNorm: 1662631 Take 1 Tablet(s) Oral BID 01/05/20 022 Inactive Eliquis 5 mg tablet RxNorm: 6522213 Take 2 Tablet(s) Oral QD 01/01/20 21 021 Inactive Lyrica 50 mg capsule RxNorm: 803708 Take 1 Capsule(s) Oral QAM every morning 12/24/19 021 Inactive Lyrica 100 mg capsule RxNorm: 788491 Take 1 Capsule(s) Oral QHS every night at bedtime 12/24/19 021 Inactive clotrimazole 1 % topical cream RxNorm: 282638 Apply to right foot and toes Topical BID 12/04/19 21 023 Inactive metoprolol succinate ER 200 mg tablet,extended release 24 hr RxNorm: 748219 Take 1 Tablet(s) Oral QD 12/04/19 21 023 Inactive ciprofloxacin 500 mg tablet RxNorm: 842873 Take 1 Tablet(s) Oral QD 11/30/19 21 021 Inactive DX ofloxacin otic drops Accu-Chek Guide test strips RxNorm: USE 1 TO CHECK GLUCOSE 4 TIMES DAILY AND NEEDED 11/15/19 21 023 Inactive Blood Glucose Test strips RxNorm: Use 1 Test Strip QID at PRN 11/05/19 21 023 Inactive E11.42 lisinopril 30 mg tablet RxNorm: 999469 Take 1 Tablet(s) Oral QD 10/30/19 021 Inactive lisinopril 20 mg tablet RxNorm: 014928 Take 1 Tablet(s) Oral QD 10/23/19 21 021 Inactive lisinopril 20 mg tablet RxNorm: 633658 Take 1 Tablet(s) Oral QD 10/23/19 21 021 Inactive lisinopril 10 mg tablet RxNorm: 237731 Take 1 Tablet(s) Oral QD 10/02/19 21 021 Inactive icosapent ethyl 1 gram capsule RxNorm: 3895928 Take 2 Capsule(s) (2 gm) Oral BID with meals 09/12/19 21 024 Inactive Okay to dispense one 2gm tab if you have that available. icosapent ethyl 1 gram capsule RxNorm: 3053479 Take 2 Capsule(s) Oral BID 09/12/19 21 021 Inactive Okay to dispense one 2gm tab if you have that available. amlodipine 10 mg tablet RxNorm: 855418 Take 1 Tablet(s) Oral QD 09/04/19 022 Inactive aspirin 81 mg tablet,delayed release RxNorm: 535499 Take 1 Tablet(s) Oral QD 09/04/19 21 021 Inactive Levemir FlexTouch U-100 Insulin 100 unit/mL (3 mL) subcutaneous pen RxNorm: 777827 Inject 150 Unit(s) Subcutaneous BID 09/04/19 21 022 Inactive venlafaxine ER 150 mg tablet,extended release 24 hr RxNorm: 451203 Take 1 Tablet(s) Oral QD 09/04/19 21 021 Inactive clotrimazole-betame thasone 1 %-0.05 % topical cream RxNorm: 933551 Apply to rash on red area on left abdomen/chest Topical BID 08/10/19 21 021 Inactive amlodipine 5 mg tablet RxNorm: 047690 Take 1 Tablet(s) Oral QD 07/31/19 21 Inactive cephalexin 500 mg tablet RxNorm: 619356 Take 1 Tablet(s) Oral BID BID - Twice Daily 07/31/19 21 021 Inactive Start 08/01/20 pantoprazole 40 mg tablet,delayed release RxNorm: 186524 Take 1 Tablet(s) Oral QAM every morning 07/08/19 022 Inactive senna 8.6 mg tablet RxNorm: 330335 Take 1 Tablet(s) Oral QD 07/08/19 022 Inactive carbamazepine 200 mg tablet RxNorm: 318071 Take 1 Tablet(s) Oral BID 07/08/19 022 Inactive clopidogrel 75 mg tablet RxNorm: 954410 Take 1 Tablet(s) Oral QD 07/08/19 021 Inactive Blood Glucose Test strips RxNorm: Use 1 Test Strip QID at PRN 07/08/19 Inactive E11.42 Novolog Flexpen U-100 Insulin aspart 100 unit/mL (3 mL) subcutaneous RxNorm: 7269088 Administer per sliding scale Milliliter(s) Subcutaneous TID 151-200: 10 u; 201-250: 20 u; 251-300: 30 u; 301-350: 40 u; 351-400: 50 u. 07/08/19 21 022 Inactive lisinopril 5 mg tablet RxNorm: 631248 Take 1 Tablet(s) Oral QD 07/08/19 021 Inactive Novolog Flexpen U-100 Insulin aspart 100 unit/mL (3 mL) subcutaneous RxNorm: 3170543 Inject 85 Unit(s) Subcutaneous TID 07/08/19 022 Inactive pravastatin 80 mg tablet RxNorm: 567067 Take 1 Tablet(s) Oral QHS every night at bedtime 07/08/19 21 023 Inactive clotrimazole 1 % topical cream RxNorm: 108465 Apply to bilateral groin areas Topical BID 07/08/19 022 Inactive metoprolol succinate ER 200 mg tablet,extended release 24 hr RxNorm: 261058 Take 1 Tablet(s) Oral QD 07/08/19 021 Inactive Vitamin D3 25 mcg (1,000 unit) tablet RxNorm: 491583 Take 1 Tablet(s) Oral QD 07/08/19 021 Inactive isosorbide dinitrate 30 mg tablet RxNorm: 473544 Take 1 Tablet(s) Oral QD 07/08/19 021 Inactive Levemir FlexTouch U-100 Insulin 100 unit/mL (3 mL) subcutaneous pen RxNorm: 953906 Inject 140 Unit(s) Subcutaneous BID 07/08/19 Inactive torsemide 20 mg tablet RxNorm: 509135 Take 1 Tablet(s) Oral QD 07/08/19 023 Inactive venlafaxine 75 mg tablet RxNorm: 441956 Take 1 Tablet(s) Oral QD 07/08/19 021 Inactive acetaminophen 500 mg tablet RxNorm: 567014 Take 1 Tablet(s) Oral TID as needed for headache 06/18/19 21 021 Inactive acetaminophen 500 mg tablet RxNorm: 424051 Take 1 Tablet(s) Oral TID as needed for headache 06/18/19 021 Inactive Lyrica 100 mg capsule RxNorm: 205881 Take 1 Capsule(s) Oral QHS every night at bedtime 06/11/19 021 Inactive Lyrica 50 mg capsule RxNorm: 666044 Take 1 Capsule(s) Oral QAM every morning 06/10/19 21 021 Inactive hydrocortisone 2.5 % topical cream RxNorm: 068167 Apply to bilateral groin creases Topical BID 05/15/20 20 021 Inactive clotrimazole 1 % topical cream RxNorm: 136167 Apply to bilateral groin areas Topical BID 05/15/20 20 021 Inactive Lyrica 50 mg capsule RxNorm: 506182 Take 1 Capsule(s) Oral QAM every morning 05/14/20 20 12/29/2 020 Inactive Lyrica 100 mg capsule RxNorm: 222789 Take 1 Capsule(s) Oral QHS every night [...] Inactive Nystop 100,000 unit/gram topical powder RxNorm: 136559 Apply to abd folds, under breasts and L side of groin Topical BID x 14 days, then BID PRN 04/08/20 20 Inactive dx: yeast dermatitis Lyrica 100 mg capsule RxNorm: 973236 Take 1 Capsule(s) Oral QHS every night at bedtime 03/13/20 20 Inactive Lyrica 50 mg capsule RxNorm: 995588 Take 1 Capsule(s) Oral QAM every morning 03/13/20 20 Inactive ketoconazole 2 % shampoo RxNorm: 063773 Apply Topical two times a week with showers 03/11/20 20 024 Inactive cholecalciferol (vitamin D3) 50 mcg (2,000 unit) tablet RxNorm: 474870 Take 1 Tablet(s) Oral QD 03/11/20 20 021 Inactive Zetia 10 mg tablet RxNorm: 361082 Take 1 Tablet(s) Oral QD 03/07/20 20 021 Inactive Zetia 10 mg tablet RxNorm: 011340 Take 1 Tablet(s) Oral QD 10/22/ Inactive Lyrica 50 mg capsule RxNorm: 663659 Take 1 Capsule(s) Oral QAM every morning 02/15/20 Inactive Lyrica 100 mg capsule RxNorm: 761563 Take 1 Capsule(s) Oral QHS every night at bedtime 02/15/20 Inactive Lyrica 100 mg capsule RxNorm: 532542 Take 1 Capsule(s) Oral QHS every night at bedtime 02/15/20 Inactive Lyrica 50 mg capsule RxNorm: 695662 Take 1 Capsule(s) Oral QAM every morning 02/15/20 Inactive metoprolol succinate ER 200 mg tablet,extended release 24 hr RxNorm: 046861 Take 1 Tablet(s) Oral QD 08/11 Activeloperamide 2 mg capsuleRxNorm: 040942Bkar 1 Capsule(s) Oral QID as needed 06/12/2021ctivehydralazine 50 mg tabletRxNorm: 119361Qjha 1 Tablet(s) Oral QID 08/11/2022ctivevenlafaxine ER 75 mg capsule,extended release 24 hrRxNorm: 190497Brfv 3 Capsule(s) Oral QD/Inactivepolyethylene glycol 3350 17 gram/dose oral powderRxNorm: 736160Dxrq 17=1 capful Gram(s) Oral BID as needed mix with 4-8oz of hcuxfz71/Inactiveicosapent ethyl 1 gram capsuleRxNorm: 9758510Oilp 2 Capsule(s) (2 gm) Oral BID with meals /InactiveOkay to dispense one 2gm tab if you have that available.Levemir FlexTouch U-100 Insulin 100 unit/mL (3 mL) subcutaneous pen RxNorm: 486861Zmqzjn 80 Unit(s) Subcutaneous BID/Inactive Novolog Flexpen U-100 Insulin aspart 100 unit/mL (3 mL) subcutaneousRxNorm: 0176482Ifmyyc 30 Unit(s) Subcutaneous TID with mealsInactive Medication Administered No Medication Administered data Procedures Procedure Codes Date DEBRIDE NAIL 6 OR MORE CPT-4: 39164 SYS BP LESS 140 CPT-4: G8752 09/07/2023 CUI BP LESS 90 CPT-4: G8754 09/07/2023 Vital Signs Date Vital 09/07/2023 Blood Pressure 1: 124/76 Code: 8480-6 Heart Rate 1: 77 bpm Code: 8867-4 SpO2: 95% Temperature: 36.8 (C) / 98.3 (F) Reason For Visit No Reason For Visit data Encounters Encounter Performer Location Location Address Codes Cristiano e ([id number]) Home or Residence Vi sit Est Pt - Moderate Level, 40 mins Diagnosis: Amputated toe of right foot[ICD10: S98.131A] Diagnosis: Type 2 diabetes mellitus with diabetic polyneuropathy, with long-term current use of insulin[ICD10: E11.42] Diagnosis: Vitamin D deficiency[ICD10: E55.9] Diagnosis: Stage 2 chronic 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[ICD10: E11.22] Diagnosis: Recurrent major depressive disorder, in partial remission[ICD10: F33.41] Diagnosis: Hyperlipidemia associated with type 2 diabetes mellitus[ICD10: E11.69] Diagnosis: Hypertensive heart disease without heart failure[ICD10: I11.9] Diagnosis: Constipation by delayed colonic transit[ICD10: K59.01] Diagnosis: Diabetic neuropathy associated with type 2 diabetes mellitus[ICD10: E11.40] Diagnosis: Hx of deep venous thrombosis[ICD10: Z86.718] Diagnosis: Hypercoagulable state[ICD10: D68.59] Diagnosis: Onychogryposis[ICD10: L60.2]H[place] on [id number] [place] [id number]-5: [id number] Plan of Care Planned Activity Notes Codes Status Date Appointment: Sandra Clark WPtel: [address] [place], [place] [id number] [facility]ly [facility] Psych Follow Up12/09/2022ppointment: Tapan Shirley WPtel: [address] [facility] [address] [id number] USTCM10/26/2022Referral: [facility] WPtel: [address], [address] [id number] USReferralRecords Eskgvjzt25/08/2023ppointment: ShirleyTapan WPtel: [address] [id number] USF/U008/11/2022ppointment: ShirleyTapan WPtel: [address] [facility] [address] [id number] USF/U007/14/2022ppointment: Tapan Shirley WPtel: [address] [facility] [address] [id number] USF/2Referral: [facility] [address] [id number] FJWzcnvzaqNewhahoff11/12/2022Referral: General CardiologyReferralCompleted 1Referral: General PsychologistReferralClosedReferral: General PsychiatristReferralPatient/Family [...] Sister Jyotsna involved in his care cell# [phone] Guardian: Giulia (tapan met in person 09/01/21), now has Lexii (same group as giulia)Lab Schedule: Mar-/September*September (CBC with diff, CMP, A1c) (Novemebr: CBC, CMP, A1c, Lipids, VitD) 10/08/2023 Recurrent major depressive d isorder, in partial remission Currently taking: Abilify 15 mg QD. Vitamin D 1250 mcg once weekly. Venlafaxine ER 225 mg QD. Mood has been: stable, at baseline.?? Sees not benefit of going outside despite encouragement today.?? Type 2 diabetes mellitus with diabetic polyneuropathy, with long-term current use of insulin Follows with endocrinology; will defer any medication changes to them unless they ask PCP to take of diabetic care.?? Current regimen: Basaglar 30 units BID. Humulin 100 units TID.Ozempic 1 mg weekly.?? Lyrica 100 mg AM and 150 mg PM. Vitamin D deficiency Last checked in February 2023 - monitor yearly.?? Continue Vitamin D3 50,000 units once weekly for supplementation.?? Encouraged getting outside for natural vitamin D but patient lives in the basement and rarely goes outside. And today with conversation he sees no benefit of going outside because he has nothing to do out there. Still encouraged as fresh air and change of scenery from his room would be of great benefit for him.?? Stage 2 chronic 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 Lipid panel last in March 2023, will monitor in March 2024.?? Is on a high amount of insulin.?? Follows with Endocrinology.?? Dangers of extreme elevation in LDL and triglycerides have been educated on. He eats what the facility prepares for him and unfortunately they do not follow a heart healthy meal plan.?? Medications: Vascepa 2 grams BID. Rosuvastatin 40 mg QD. Ezetimine 10 mg QD. Hypercoagulable state Monitor for signs and symptoms of thrombus.?? No signs and symptoms present today.?? Continue Aspirin and Eliquis as ordered.?? Hypertensive heart disease without heart failure Multiple anti-hypertensives. Amlodipine 10 mg QD. Chlorthalidone 25 mg QD.Hydralazine 50 mg QID. Isosorbide mononitriate ER 60 mg QD. Metoprolol ER 200 mg QD. Potassium chloride ER 20 mEq QD. Torsemide 20 mg BID.?? Aspirin 81 mg QD.?? Hydralazine added February 2021. Follows with [employer] [facility] with [facility]. Blood pressure today: 124/76 Would like to order lab work - will discuss with patient and staff since there is no in home lab service to service this facility at this time. Last lab work in 03/2023, will order next month for 6 month lab work, perhaps there will be an establishment of in home lab services by that time.?? Hx of deep venous thrombosis Wearing bilateral compression socks, they are new this year and fit well.?? Currently taking aspirin 81 mg daily and Eliquis 5 mg BID.?? No redness or open areas of skin upon assessment today. Does have chronic marshall discoloration to calves and hemosideran staining.?? Onychogryposis Toenails debrided todya.?? R)3 L)5 Medical grade nail clipper used to reduce length and thickness. Will continue to monitor length at each visit and debride as needed.?? No signs of ingrown toenails or infection today. Amputated toe of right foot Past amputation due to infection.?? Healed well.?? Constipation by delayed colonic transit No constipation complaints recently, did have diarrhea the other day, no longer occurring.?? Continue with miralax and senna daily. Does have suppository PRN as well.?? Diabetic neuropathy associated with type 2 diabetes mellitus Bilateral neuropathy of feet.?? thumping pain as described by Leonid.?? Lyrica in the AM and PM has been helping.?? Refill needed per staff will send this today to the pharmacy once I review medication list and ensure appropriate timing for refill.?? Hyperlipidemia associated with type 2 diabetes mellitus Lipid panel last in March 2023, will monitor in March 2024.?? Is on a high amount of insulin.?? Follows with Endocrinology.?? Dangers of extreme elevation in LDL and triglycerides have been educated on. He eats what the facility prepares for him and unfortunately they do not follow a heart healthy meal plan.?? Medications: Vascepa 2 grams BID. Rosuvastatin 40 mg QD. Ezetimine 10 mg QD.. 09/07/2023
--- OUTSIDE RECORDS SUMMARY | 2023-11-03 10:27 | XMS_ITS | CCD ---
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 Revenue Investigator Name Role Phone [facility] Primary Care Provider Leona vailable [place] [facility], [facility] U navailable Summary Purpose DataExchange Insurance Providers Payer name Policy type / Coverage type Covered constitution party ID Effective Begin Date Effective End Date Medicare [place] Medicare Part B [id number] Unknown Unknown Medicaid [place] Medicare Part B [id number] Unknown Unknown Family history Sister Brittany Suggs [...] Usp 09/03/[address]: 4653793 Non-Smoker / No History of Smoking 09/02/[address]: 105721481 No Alcohol Consum ption 09/02/2020 Allergies, Adverse Reactions, Alerts Substance Reaction Codes Entered Date Inactivated Date Status * NO KNOWN FOOD ALLERGIES Zwwmyfh4207/13/2023No Inactive DateActiveLISINOPRILRxNorm: 6595963No Inactive DateActiveMetformin AIySbqxwdn56/28/2020No Inactive DateActive* NO KNOWN ENVIRONMENTAL TMSTRBGLPOqflpbb73/27/2024No Inactive DateActive Problems Condition Codes Effective Dates Condition St atus Amputated toe of right foot ICD-10: S98. 131A ICD-9: 895.004/ctiveConstipation by delayed colonic transitICD-10: K59.01 ICD-9: 564.0104/ctiveDiabetic neuropathy associated with type 2 diabetes mellitusICD-10: E11.40 ICD-9: 250.6004/ctiveHx of deep venous thrombosisICD-10: Z86.718 ICD-9: V12.5104/ctiveHypercoagulable stateICD-10: D68.59 ICD-9: 289.8104/ctiveHyperlipidemia associated with type 2 diabetes mellitusICD-10: E11.69 ICD-9: 250.8004/ctiveHypertensive heart disease without heart failure ICD-10: I11.9 ICD-9: 402.9004ctiveOnychogryposisICD-10: L60.2 ICD-9: 703.804ctiveRecurrent major depressive disorder, in partial remissionICD-10: F33.41 ICD-9: 296.3504ctiveStage 2 chronic 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ICD-10: E11.22 ICD-9: 250.4004ctiveType 2 diabetes mellitus with diabetic polyneuropathy, with long-term current use of insulinICD-10: E11.42 ICD-9: 250.6004ctiveVitamin D deficiencyICD-10: E55.9 ICD-9: 268.904ctiveCellulitisICD-10: L03.90 ICD-9: 682.9009/07/2023esolvedDandruff in adultICD-10: L21.0 ICD-9: 690.18044ResolvedEncounter for other specified special examinationsICD-10: Z01.89 ICD-9: V72.85044ResolvedEncounter for screening for nutritional disorder ICD-10: Z13.21 ICD-9: V77.99044ResolvedImpacted cerumen, left earICD-10: H61.22 ICD-9: 380.404/4ResolvedShortness of breathICD-10: R06.02 ICD-9: 786.0504esolvedSkin tagICD-10: L91.8 ICD-9: 701.904esolvedLower extremity edemaICD-10: R60.0 ICD-9: 782.303/ctiveMajor depression, recurrentICD-10: F33.9 ICD-9: 296.3003/ctivePVD (peripheral vascular disease)ICD-10: I73.9 ICD-9: 443.903/ctiveCoronary artery disease involving [place] coronary artery of [place] heart, angina presence unspecifiedICD-10: I25.10 ICD-9: 414.0102/ctiveReducible umbilical herniaICD-10: K42.9 ICD-9: 553.111/ctiveBMI 60.0-69.9, adultICD-10: Z68.44 ICD-9: V85.4410/ctiveCandidal intertrigoICD-10: B37.2 ICD-9: 112.310/ctiveHyperlipidemia, unspecifiedICD-10: E78.5 ICD-9: 272.410/ctiveInappropriate sexual behaviorICD-10: Z72.89 ICD-9: 312.8910/ctiveLearning disabilityICD-10: F81.9 ICD-9: 315.210/ctiveOther halfway (current) drug therapyICD-10: Z79.899 ICD-9: V58.6910/ctiveAnnual physical examICD-10: Z00.00 ICD-9: V70.009/ctiveHypokalemiaICD-10: E87.6 ICD-9: 276.807/ctiveTinea pedis of both feetICD-10: B35.3 ICD-9: 110.407/ctiveParaparesis of both lower limbsICD-10: G82.20 ICD-9: 344.106/ctivePain of right heelICD-10: M79.671 ICD-9: 729.505/ctivePre-op evaluationICD-10: Z01.818 ICD-9: V72.8403/ctiveSecondary hypertensionICD-10: I15.9 ICD-9: 405.99033ActiveSeizure disorderICD-10: G40.909 ICD-9: 345.90112ActiveDepressionICD-10: F32.9 ICD-9: 07581/esolvedDVT (deep venous thrombosis)ICD-10: I82.409 ICD-9: 453.4009/esolvedEncounter for immunizationICD-10: Z23 ICD-9: V03.8909esolvedLong term (current) use of insulinICD-10: Z79.4 02/10/2022esolvedMuscular painICD-10: M79.10 ICD-9: 729.109esolvedHypertension associated with diabetesICD-10: E11.59 ICD-9: 250.8008/esolvedHistory of anemia due to CKDICD-10: N18.9 ICD-9: 585.907ctiveStage 2 chronic kidney diseaseICD-10: N18.2 ICD-9: 585.207/ctiveGout due to renal impairmentICD-10: M10.30 ICD-9: 274.1006ctiveCallus of heelICD-10: L84 ICD-9: 71336ctiveContact with and (suspected) exposure to covid-19ICD- 10: Z20.822 ICD-9: V01.7908esolvedOther infective acute otitis externa of left ear ICD-10: H60.392 ICD-9: 380.1008esolvedScrotal skin lesionICD-10: N50.9 ICD-9: 608.908esolvedAnemia due to stage 3b chronic kidney diseaseICD- 10: N18.32 ICD-9: 285.21010/01/2020esolvedChronic kidney disease, stage 3 unspecifiedICD- 10: N18.3004esolvedContact with and (suspected) exposure to other viral communicable diseasesICD-10: Z20.828 ICD-9: V01.7902/1ResolvedHyperhidrosis of palmsICD-10: L74.512 ICD-9: 705.2052XjmzfvTovllbloAucpiku15/28/2020ActiveDiabetes mellitus Type 0Cmujlfe79/28/2020ActiveAnemia in chronic kidney diseaseICD-10: D63.1 02/12/2020ResolvedHyperlipidemia, unspecifiedICD-10: E78.Resolved Medications Medication Codes Instructions Start Date Stop Date Status Fill Instructions acetaminophen 500 mg tablet RxNorm: 596237 (MAX APAP:4GM/24HR) Take 1 Tablet(s) Oral TID as needed for pain 09/24/19 24 024 Inactive carvedilol 25 mg tablet RxNorm: 370806 Take 1 Tablet(s) Oral QD 09/08/19 24 No Stop Date Active pregabalin 100 mg capsule RxNorm: 609405 Take 1 Capsule(s) Oral QAM every morning 09/07/19 24 024 Active rosuvastatin 40 mg tablet RxNorm: 358857 Take 1 Tablet(s) Oral QPM every evening 07/13/19 24 No Stop Date Active ezetimibe 10 mg tablet RxNorm: 390995 Take 1 Tablet(s) Oral QD 07/13/19 24 No Stop Date Active bisacodyl 10 mg rectal suppository RxNorm: 388377 Insert 1 Suppository Rectal QD as needed 07/13/19 24 No Stop Date Active polyethylene glycol 3350 17 gram/dose oral powder RxNorm: 576487 Take 17 Gram(s) Oral BID as needed mix in 4-8ox water 07/13/19 24 No Stop Date Active ketoconazole 2 % shampoo RxNorm: 811660 Apply 1 Application Topical UD as directed 07/13/19 24 No Stop Date Active aripiprazole 15 mg tablet RxNorm: 125434 Take 1/2 Tablet(s) Oral QD 07/13/19 24 No Stop Date Active Ozempic 1 mg/dose (4 mg/3 mL) subcutaneous pen injector RxNorm: 6315976 Inject 1 Milligram(s) Subcutaneous QW once a week 07/13/19 24 No Stop Date Active Guaifenesin AC 10 mg-100 mg/5 mL oral liquid RxNorm: 810585 Take 10 Milliliter(s) Oral Q4H every four hours as needed 07/13/19 24 No Stop Date Active isosorbide mononitrate ER 60 mg tablet,extended release 24 hr RxNorm: 591240 Take 1 Tablet(s) Oral QD 07/13/19 24 No Stop Date Active ammonium lactate 12 % topical cream RxNorm: 991927 Apply 1 Application Topical BID 07/13/19 24 No Stop Date Active hydrocortisone 2.5 % topical cream RxNorm: 312424 Apply 1 Application Topical BID as needed 07/13/19 24 No Stop Date Active rosuvastatin 20 mg sprinkle capsule RxNorm: 1453558 Take 1 Capsule(s) Oral QD 07/13/19 24 No Stop Date Active Vascepa 1 gram capsule RxNorm: 6386033 Take 2 Capsule(s) Oral BID 07/13/19 24 No Stop Date Active venlafaxine ER 75 mg capsule,extended release 24 hr RxNorm: 158137 Take 3 Capsule(s) Oral QD 07/13/19 24 No Stop Date Active Basaglar KwikPen U-100 Insulin 100 unit/mL (3 mL) subcutaneous RxNorm: 2298384 Inject 30U SubQ twice daily 07/07/19 24 025 Active Please dispense one month supply. Basaglar KwikPen U-100 Insulin 100 unit/mL (3 mL) subcutaneous RxNorm: 0543956 Inject 30U SubQ twice daily 07/07/19 24 024 Inactive Please dispense one month supply. pregabalin 150 mg capsule RxNorm: 025020 Take 1 Capsule(s) Oral QHS every night at bedtime 07/05/19 24 024 Active pregabalin 150 mg capsule RxNorm: 172660 Take 1 Capsule(s) Oral QHS every night at bedtime 07/05/19 24 024 Inactive polyethylene glycol 3350 17 gram/dose oral powder RxNorm: 786316 Take 1 Packet Oral QD as needed (1 packet = 17g) mix with 4-8oz of liquid 06/15/19 24 024 Inactive bisacodyl 10 mg rectal suppository RxNorm: 642092 Insert one suppository per rectum once daily as needed for constipation 06/15/19 24 024 Inactive bisacodyl 10 mg rectal suppository RxNorm: 096063 Insert one suppository per rectum once daily as needed for constipation 06/15/19 24 024 Inactive pregabalin 100 mg capsule RxNorm: 291642 Take 1 Capsule(s) Oral QAM every morning 04/27/20 024 Inactive Levemir FlexPen 100 unit/mL (3 mL) solution subcutaneous insulin pen RxNorm: 665646 Inject 30 Unit(s) Subcutaneous BID 04/27/20 024 Inactive rosuvastatin 40 mg tablet RxNorm: 883760 Take 1 Tablet(s) Oral QPM every evening 04/16/20 024 Inactive D/C rosuvastatin 20mg venlafaxine ER 75 mg capsule,extended release 24 hr RxNorm: 892415 Take 3 Capsule(s) Oral QD 04/14/20 023 Inactive pregabalin 100 mg capsule RxNorm: 820132 Take 1 Capsule(s) Oral QAM every morning [...] meter clotrimazole 1 % topical cream RxNorm: 523348 Take apply topically to abdominal folds twice daily for 14 days 03/12/20 024 Inactive Ozempic 1 mg/dose (4 mg/3 mL) subcutaneous pen injector RxNorm: 9987780 Inject 1 Milligram(s) Subcutaneous QW once a week 03/11/20 23 023 Inactive rosuvastatin 20 mg tablet RxNorm: 964223 Take 1 Tablet(s) Oral QD 02/26/20 023 Inactive d/c pravastatin 80mg Ozempic 1 mg/dose (4 mg/3 mL) subcutaneous pen injector RxNorm: 8340570 Inject 1 Milligram(s) Subcutaneous QW once a week 02/20/20 23 023 Inactive pregabalin 150 mg capsule RxNorm: 993552 Take 1 Capsule(s) Oral HS at bed time 02/19/20 023 Inactive pregabalin 100 mg capsule RxNorm: 789134 Take 1 Capsule(s) Oral QAM every morning 02/18/20 023 Inactive venlafaxine ER 75 mg capsule,extended release 24 hr RxNorm: 911267 Take 3 Capsule(s) Oral QD 02/04/20 023 Inactive FreeStyle Chema 2 Sensor kit RxNorm: use as directed 02/04/20 023 Inactive FreeStyle Chema 2 Sensor kit RxNorm: use as directed 02/04/20 024 Inactive fluconazole 150 mg tablet RxNorm: 004985 Take 1 Tablet(s) Oral on day 3 and on day 6 02/03/20 024 Active chlorthalidone 25 mg tablet RxNorm: 133816 Take 1 Tablet(s) Oral QAM every morning 02/03/20 23 No Stop Date Active venlafaxine ER 150 mg capsule,extended release 24 hr RxNorm: 973085 Take 1 Capsule(s) Oral QD 02/03/20 023 Inactive acetaminophen 500 mg tablet RxNorm: 925896 1 TABLET ORALLY 3 TIMES DAILY (MAX APAP:4GM/24HR) 12/15/19 023 Inactive potassium chloride ER 20 mEq tablet,extended release RxNorm: 192032 Take 1 Tablet(s) Oral BID 12/09/19 23 024 Inactive d/c 20mEq once daily (sent from hospital) clotrimazole 1 % topical cream RxNorm: 761794 apply 1g topically to top of feet and in between toes BID 12/09/19 23 023 Inactive nystatin 100,000 unit/gram topical powder RxNorm: 384702 APPLY TO AFFECTED AREAS TOPICALLY 2 TIMES DAILY 11/21/19 23 024 Inactive Nystop 100,000 unit/gram topical powder RxNorm: 302819 Apply to abd folds, under breasts and L side of groin Topical BID x 14 days, then BID PRN 11/20/19 023 Inactive dx: yeast dermatitis [place] Ultra Strength 4 %-30 %-10 % topical cream RxNorm: 283254 Apply 1 Gram(s) Topical QID PRN to feet and legs for neuropathic pain 11/11/19 024 Active clotrimazole 1 % topical cream RxNorm: 102440 Apply 1/2 Gram(s) Topical BID Apply to affected areas of groin, periarea, and abdominal topically 2 times daily 11/10/19 023 Inactive hydrocortisone 2.5 % topical cream RxNorm: 256185 Apply 1/2 Gram(s) Topical BID as needed 11/10/19 024 Inactive Humulin R U-500 (Concentrated) Insulin 500 unit/mL subcutaneous soln RxNorm: 229721 Inject 100 Unit(s) Subcutaneous TID 10/07/19 024 Inactive Levemir FlexPen 100 unit/mL (3 mL) solution subcutaneous insulin pen RxNorm: 130014 Inject 30 Unit(s) Subcutaneous BID 10/07/19 023 Inactive Ozempic 0.25 mg or 0.5 mg (2 mg/3 mL) subcutaneous pen injector RxNorm: 3409728 Inject 1/2 Milligram(s) Subcutaneous QW once a week 10/07/19 024 Inactive aripiprazole 15 mg tablet RxNorm: 061378 1/2 TAB (7.5MG) ORALLY DAILY (DX:MAJOR DEPRESSIVE DISORDER) 09/23/19 023 Inactive Lancets,Thin 28 gauge RxNorm: Use 1 as directed QID 09/15/19 23 024 Inactive Accu-Chek Guide test strips RxNorm: Use 1 Test Strip QID 09/15/19 23 023 Inactive ok to substitute with any covered alternative test strip torsemide 20 mg tablet RxNorm: 873215 Take 1 Tablet(s) Oral BID 09/09/19 23 024 Inactive d/c once daily dosing carvedilol 25 mg tablet RxNorm: 546775 Take 1 Tablet(s) Oral QD 08/25/19 23 024 Inactive pregabalin 150 mg capsule RxNorm: 058512 1 Capsule(s) Oral HS at bed time 08/18/19 23 023 Inactive pregabalin 100 mg capsule RxNorm: 753867 1 Capsule(s) Oral QAM every morning 08/18/19 23 023 Inactive carvedilol 25 mg tablet RxNorm: 922528 1 Tablet(s) Oral QD 07/28/19 23 023 Inactive lisinopril 20 mg tablet RxNorm: 856553 Give 1 Tablet(s) Oral QD 07/28/19 23 023 Inactive Lyrica 150 mg capsule RxNorm: 956985 Take 1 Capsule(s) Oral QHS every night at bedtime 07/19/19 23 023 Inactive d/c 100mg dose Diflucan 150 mg tablet RxNorm: 829762 Take 1 Tablet(s) Oral QD repeat on day 3 and 6 07/19/19 23 023 Inactive pregabalin 100 mg capsule RxNorm: 550667 Take 1 Capsule(s) Oral QAM every morning 07/19/19 23 023 Inactive gatifloxacin 0.5 % eye drops RxNorm: 535170 Instill 1 Drop(s) as directed TID Instill 1 drop in to affected eye(s) starting 1 day prior to surgery and continue until gone (do not exceed 4 weeks). 07/13/19 23 023 Inactive carvedilol 25 mg tablet RxNorm: 562385 2 Tablet(s) Oral BID 07/13/19 23 023 Inactive Humulin R Regular U-100 Insulin 100 unit/mL injection solution RxNorm: 753710 85 Unit(s) Injection TID 07/13/19 23 023 Inactive ketorolac 0.5 % eye drops RxNorm: 524729 Instill 1 Drop(s) as directed QID Instill 1 drop into affected eye(s) 4 times daily starting 1 day prior to surgery and continue until gone (do not exceed 4 weeks). 07/13/19 23 023 Inactive Diflucan 150 mg tablet RxNorm: 998913 Take 1 Tablet(s) Oral QD repeat on day 3 and 6 06/30/19 23 023 Inactive Accu-Chek Guide test strips RxNorm: Use 1 Test Strip QID Use 1 test strip to monitor blood glucose 4 times daily and as needed. Dx:E11.42. 06/23/19 23 023 Inactive ok to substitute with any covered alternative test strip dextromethorphan-gu aifenesin 10 mg-100 mg/5 mL oral liquid RxNorm: 361313 Take 10 Milliliter(s) Oral every 4 hours as needed for cough 06/19/19 023 Inactive dextromethorphan-gu aifenesin 10 mg-100 mg/5 mL oral liquid RxNorm: 863542 Take 10 Milliliter(s) Oral every 4 hours as needed for cough 06/19/19 23 023 Inactive Lyrica 150 mg capsule RxNorm: 591738 Take 1 Capsule(s) Oral QHS every night at bedtime 06/18/19 23 023 Inactive d/c 100mg dose aripiprazole 15 mg tablet RxNorm: 775504 1/2 TAB (7.5MG) ORALLY DAILY (DX:MAJOR DEPRESSIVE DISORDER) 06/05/19 23 023 Inactive pregabalin 100 mg capsule RxNorm: 203842 1 Capsule(s) Oral QAM every morning 06/02/19 23 023 Inactive Banophen 50 mg capsule RxNorm: 7946666 Take 1 Capsule(s) Oral Q6H every 6 hours as needed 05/19/19 23 No Stop Date Active Novolog Flexpen U-100 Insulin aspart 100 unit/mL (3 mL) subcutaneous RxNorm: 9229254 Inject 10 Unit(s) Subcutaneous QHS every night at bedtime with nighttime snack 04/08/20 22 022 Inactive Novolog Flexpen U-100 Insulin aspart 100 unit/mL (3 mL) subcutaneous RxNorm: 9548393 Inject 42 Unit(s) Subcutaneous TID in addition to sliding scale 04/08/20 022 Inactive d/c 36u albuterol sulfate HFA 90 mcg/actuation aerosol inhaler RxNorm: 3728732 Take 2 Puff(s) Inhalation Q4H every four hours as needed as needed for SOB, cough, or wheezing 04/07/20 030 Active Banophen 50 mg capsule RxNorm: 8632325 Take 1 Capsule(s) Oral Q6H every 6 hours as needed 04/06/20 023 Inactive diphenhydramine 50 mg tablet RxNorm: 6244370 Take 1 Tablet(s) Oral Q6H every 6 hours as needed 04/06/20 022 Inactive diphenhydramine 50 mg tablet RxNorm: 1701249 1 Tablet(s) Oral Q6H every 6 hours as needed 04/06/20 022 Inactive Abilify 15 mg tablet RxNorm: 736994 1/2 Tablet(s) Oral QD 03/10/20 023 Inactive Shingrix (PF) 50 mcg/0.5 mL intramuscular suspension, kit RxNorm: 6668932 Administer 1/2 Milliliter(s) Intramuscular QD one time shingrix step 2 ( step 1 given 11/04/21) WITH needle - Nursing please administer upon arrival and once administered post a bridge message with date of administration, strategic manager, expiration date, and lot# so we can update [facility] 02/18/20 22 022 Inactive dispense with needle Shingrix (PF) 50 mcg/0.5 mL intramuscular suspension, kit RxNorm: 4861628 Administer 1/2 Milliliter(s) Intramuscular QD one time shingrix step 2 ( step 1 given 11/04/21) WITH needle - Nursing please administer upon arrival and once administered post a bridge message with date of administration, strategic manager, expiration date, and lot# so we can update [facility] 02/18/20 22 022 Inactive dispense with needle polyethylene glycol 3350 17 gram/dose oral powder RxNorm: 975155 Take 17=1 capful Gram(s) Oral QD mix with 4-8oz of liquid 01/08/20 22 023 Inactive take this in addition to BID prn order Lyrica 100 mg capsule RxNorm: 638681 Take 1 Capsule(s) Oral QAM every morning 01/08/20 22 022 Inactive d/c 50mg dose acetaminophen 500 mg tablet RxNorm: 608251 Take 1 Tablet(s) Oral TID 01/08/20 22 022 Inactive d/c PRN order Lyrica 150 mg capsule RxNorm: 947438 Take 1 Capsule(s) Oral QHS every night at bedtime 01/08/20 22 023 Inactive d/c 100mg dose Abilify 5 mg tablet RxNorm: 749612 Take 1 Tablet(s) Oral QD take 1 tab po QD #30 refill 5 dx: MDD 12/12/19 22 022 Inactive Abilify 5 mg tablet RxNorm: 608310 Take 1 Tablet(s) Oral QD take 1 tab po QD #30 refill 5 dx: MDD 12/12/19 22 022 Inactive Novolog Flexpen U-100 Insulin aspart 100 unit/mL (3 mL) subcutaneous RxNorm: 7295553 Inject 42 Unit(s) Subcutaneous TID in addition to sliding scale 12/10/19 22 022 Inactive d/c 36u chlorthalidone 25 mg tablet RxNorm: 680847 Take 1 Tablet(s) Oral QAM every morning 12/10/19 22 023 Inactive pregabalin 50 mg capsule RxNorm: 807111 Take 1 Capsule(s) Oral QAM every morning 11/12/19 22 022 Inactive tetanus-diphtheria toxoids-Td 2 Lf unit-2 Lf unit/0.5 mL IM suspension RxNorm: 139 Take 0.5 Miscellaneous Intramuscular 11/12/19 22 022 Inactive need tdap - nursing to administer upon arrival pregabalin 50 mg capsule RxNorm: 320453 Take 1 Capsule(s) Oral QAM every morning 10/16/19 22 022 Inactive pregabalin 50 mg capsule RxNorm: 107063 Take 1 Capsule(s) Oral QAM every morning 10/16/19 22 022 Inactive pregabalin 50 mg capsule RxNorm: 335880 1 Capsule(s) Oral QAM every morning 10/15/19 22 022 Inactive Shingrix (PF) 50 mcg/0.5 mL intramuscular suspension, kit RxNorm: 4310566 Administer 1/2 Milliliter(s) Intramuscular one time Nursing please administer upon arrival and once administered post a bridge message with date of administration, strategic manager, expiration date, and lot# so we can update [facility]. 10/09/19 22 022 Inactive shingrix step 1 Shingrix (PF) 50 mcg/0.5 mL intramuscular suspension, kit RxNorm: 8884109 Administer 1/2 Milliliter(s) Intramuscular one time Nursing please administer upon arrival and once administered post a bridge message with date of administration, strategic manager, expiration date, and lot# so we can update [facility]. 10/09/19 22 022 Inactive shingrix step 1 cholecalciferol (vitamin D3) 1,250 mcg (50,000 unit) capsule RxNorm: 095547 Take 1 Capsule(s) Oral QW once a [...] aspart 100 unit/mL (3 mL) subcutaneous RxNorm: 2989759 Inject 10 Unit(s) Subcutaneous QHS every night at bedtime with nighttime snack 10/08/19 22 022 Inactive Shingrix (PF) 50 mcg/0.5 mL intramuscular suspension, kit RxNorm: 9566271 ADMINISTER 2-DOSE SERIES PER CDC GUIDELINES 10/08/19 22 022 Active Shingrix (PF) 50 mcg/0.5 mL intramuscular suspension, kit RxNorm: 7560844 ADMINISTER 2-DOSE SERIES PER CDC GUIDELINES 10/08/19 22 Inactive Novolog Flexpen U-100 Insulin aspart 100 unit/mL (3 mL) subcutaneous RxNorm: 8743853 Inject 36 Unit(s) Subcutaneous TID in addition to sliding scale 10/08/19 22 Inactive Novofine Autocover 30 gauge x 1/3 needle RxNorm: Use 1 Miscellaneous UD as directed Use 1 needle as directed to administer insulin 5 times a day Dx:E11.42. 10/03/19 22 Inactive ok to substitute with any covered alternative pen needle benzoyl peroxide 10 % topical cleanser RxNorm: 663428 Apply 1 Application Topical QD apply to face, wash rinse and dry once daily (may change to QOD if drying) 08/19/19 022 Inactive (%covered by insurance) #60ml refill 11 dx: acne benzoyl peroxide 10 % topical cleanser RxNorm: 623335 Apply 1 Application Topical QD apply to face, wash rinse and dry once daily (may change to QOD if drying) 08/19/19 022 Inactive (%covered by insurance) #60ml refill 11 dx: acne benzoyl peroxide 10 % topical cleanser RxNorm: 201989 Apply 1 Application Topical QD apply to face, wash rinse and dry once daily (may change to QOD if drying) 08/19/19 022 Inactive (%covered by insurance) #60ml refill 11 dx: acne Lyrica 50 mg capsule RxNorm: 204266 Take 1 Capsule(s) Oral QAM every morning Take 1 capsule by mouth once daily 08/19/19 22 022 Inactive benzoyl peroxide 10 % topical cleanser RxNorm: 438897 Apply 1 Application Topical QD apply to face, wash rinse and dry once daily (may change to QOD if drying) 08/19/19 22 022 Inactive (%covered by insurance) #60ml refill 11 dx: acne Lyrica 100 mg capsule RxNorm: 563639 Take 1 Capsule(s) Oral QHS every night at bedtime Take 1 capsule by mouth once daily at bedtime 08/19/19 22 022 Inactive Lyrica 100 mg capsule RxNorm: 261894 Take 1 Capsule(s) Oral QHS every night at bedtime Take 1 capsule by mouth once daily at bedtime 08/16/19 22 022 Inactive Lyrica 50 mg capsule RxNorm: 324580 Take 1 Capsule(s) Oral QAM every morning Take 1 capsule by mouth once daily 08/16/19 22 022 Inactive Levemir FlexTouch U-100 Insulin 100 unit/mL (3 mL) subcutaneous pen RxNorm: 432588 Inject 86 Unit(s) Subcutaneous BID 08/05/19 22 022 Inactive d/c 83units BID Lyrica 100 mg capsule RxNorm: 384602 Take 1 Capsule(s) Oral QHS every night at bedtime Take 1 capsule by mouth once daily at bedtime 07/14/19 22 022 Inactive Lyrica 50 mg capsule RxNorm: 831837 Take 1 Capsule(s) Oral QAM every morning Take 1 capsule by mouth once daily 07/14/19 22 022 Inactive Levemir FlexTouch U-100 Insulin 100 unit/mL (3 mL) subcutaneous pen RxNorm: 050318 Inject 83 Unit(s) Subcutaneous BID 07/08/19 22 [...] test strip hydralazine 50 mg tablet RxNorm: 818308 Take 1 Tablet(s) Oral QID 05/05/20 21 022 Inactive venlafaxine ER 225 mg tablet,extended release 24 hr RxNorm: 532937 Take 1 Tablet(s) Oral QD 05/05/20 21 021 Inactive venlafaxine ER 225 mg tablet,extended release 24 hr RxNorm: 531798 Take 1 Tablet(s) Oral QD 05/05/20 21 022 Inactive isosorbide mononitrate ER 30 mg tablet,extended release 24 hr RxNorm: 423421 Take 1 Tablet(s) Oral QD 05/05/20 21 024 Inactive hydralazine 50 mg tablet RxNorm: 101186 Take 1 Tablet(s) Oral QID 05/05/20 21 021 Inactive aspirin 81 mg tablet,delayed release RxNorm: 838521 Take 1 Tablet(s) Oral QD 03/31/20 21 022 Inactive Vitamin D2 1,250 mcg (50,000 unit) capsule RxNorm: 3277134 Take 1 Capsule(s) Oral QW once a week x 12 weeks 03/31/20 022 Inactive Vitamin D2 1,250 mcg (50,000 unit) capsule RxNorm: 4509203 Take 1 Capsule(s) Oral QW once a week 03/31/20 21 021 Inactive Zetia 10 mg tablet RxNorm: 080806 Take 1 Tablet(s) Oral QD 03/31/20 024 Inactive Zetia 10 mg tablet RxNorm: 111758 Take 1 Tablet(s) Oral QD 03/31/20 021 Inactive hydralazine 25 mg tablet RxNorm: 790428 Take 1 Tablet(s) Oral QID 03/31/20 021 Inactive hydralazine 25 mg tablet RxNorm: 143230 Take 1 Tablet(s) Oral QID 03/31/20 021 Inactive hydralazine 10 mg tablet RxNorm: 824493 Take 1 Tablet(s) Oral QID 03/03/20 021 Inactive cephalexin 500 mg tablet RxNorm: 280428 Take 1 Tablet(s) Oral QID 02/27/20 021 Inactive cephalexin 500 mg tablet RxNorm: 380560 Take 1 Tablet(s) Oral QID 02/27/20 021 Inactive lisinopril 40 mg tablet RxNorm: 788401 Take 1 Tablet(s) Oral QD 02/11/20 023 Inactive Eliquis 5 mg tablet RxNorm: 7590549 Take 1 Tablet(s) Oral BID 01/05/20 022 Inactive Eliquis 5 mg tablet RxNorm: 2805600 Take 2 Tablet(s) Oral QD 01/01/20 21 021 Inactive Lyrica 50 mg capsule RxNorm: 432941 Take 1 Capsule(s) Oral QAM every morning 12/24/19 21 021 Inactive Lyrica 100 mg capsule RxNorm: 973813 Take 1 Capsule(s) Oral QHS every night at bedtime 12/24/19 21 021 Inactive clotrimazole 1 % topical cream RxNorm: 878594 Apply to right foot and toes Topical BID 12/04/19 21 023 Inactive metoprolol succinate ER 200 mg tablet,extended release 24 hr RxNorm: 492827 Take 1 Tablet(s) Oral QD 12/04/19 21 023 Inactive ciprofloxacin 500 mg tablet RxNorm: 795180 Take 1 Tablet(s) Oral QD 11/30/19 21 021 Inactive DX ofloxacin otic drops Accu-Chek Guide test strips RxNorm: USE 1 TO CHECK GLUCOSE 4 TIMES DAILY AND NEEDED 11/15/19 21 023 Inactive Blood Glucose Test strips RxNorm: Use 1 Test Strip QID at PRN 11/05/19 21 023 Inactive E11.42 lisinopril 30 mg tablet RxNorm: 045796 Take 1 Tablet(s) Oral QD 10/30/19 021 Inactive lisinopril 20 mg tablet RxNorm: 992959 Take 1 Tablet(s) Oral QD 10/23/19 021 Inactive lisinopril 20 mg tablet RxNorm: 100182 Take 1 Tablet(s) Oral QD 10/23/19 021 Inactive lisinopril 10 mg tablet RxNorm: 574384 Take 1 Tablet(s) Oral QD 10/02/19 021 Inactive icosapent ethyl 1 gram capsule RxNorm: 4855321 Take 2 Capsule(s) (2 gm) Oral BID with meals 09/12/19 024 Inactive Okay to dispense one 2gm tab if you have that available. icosapent ethyl 1 gram capsule RxNorm: 9089959 Take 2 Capsule(s) Oral BID 09/12/19 021 Inactive Okay to dispense one 2gm tab if you have that available. amlodipine 10 mg tablet RxNorm: 858349 Take 1 Tablet(s) Oral QD 09/04/19 022 Inactive aspirin 81 mg tablet,delayed release RxNorm: 620165 Take 1 Tablet(s) Oral QD 09/04/19 21 021 Inactive Levemir FlexTouch U-100 Insulin 100 unit/mL (3 mL) subcutaneous pen RxNorm: 126389 Inject 150 Unit(s) Subcutaneous BID 09/04/19 21 022 Inactive venlafaxine ER 150 mg tablet,extended release 24 hr RxNorm: 112362 Take 1 Tablet(s) Oral QD 09/04/19 21 021 Inactive clotrimazole-betame thasone 1 %-0.05 % topical cream RxNorm: 210892 Apply to rash on red area on left abdomen/chest Topical BID 08/10/19 21 Inactive amlodipine 5 mg tablet RxNorm: 355125 Take 1 Tablet(s) Oral QD 07/31/19 021 Inactive cephalexin 500 mg tablet RxNorm: 606963 Take 1 Tablet(s) Oral BID BID - Twice Daily 07/31/19 021 Inactive Start 08/01/20 pantoprazole 40 mg tablet,delayed release RxNorm: 828515 Take 1 Tablet(s) Oral QAM every morning 07/08/19 022 Inactive senna 8.6 mg tablet RxNorm: 849489 Take 1 Tablet(s) Oral QD 07/08/19 022 Inactive carbamazepine 200 mg tablet RxNorm: 480309 Take 1 Tablet(s) Oral BID 07/08/19 022 Inactive clopidogrel 75 mg tablet RxNorm: 862592 Take 1 Tablet(s) Oral QD 07/08/19 021 Inactive Blood Glucose Test strips RxNorm: Use 1 Test Strip QID at PRN 07/08/19 Inactive E11.42 Novolog Flexpen U-100 Insulin aspart 100 unit/mL (3 mL) subcutaneous RxNorm: 3422029 Administer per sliding scale Milliliter(s) Subcutaneous TID 151-200: 10 u; 201-250: 20 u; 251-300: 30 u; 301-350: 40 u; 351-400: 50 u. 07/08/19 21 022 Inactive lisinopril 5 mg tablet RxNorm: 468800 Take 1 Tablet(s) Oral QD 07/08/19 021 Inactive Novolog Flexpen U-100 Insulin aspart 100 unit/mL (3 mL) subcutaneous RxNorm: 8055082 Inject 85 Unit(s) Subcutaneous TID 07/08/19 022 Inactive pravastatin 80 mg tablet RxNorm: 819342 Take 1 Tablet(s) Oral QHS every night at bedtime 07/08/19 023 Inactive clotrimazole 1 % topical cream RxNorm: 408565 Apply to bilateral groin areas Topical BID 07/08/19 21 022 Inactive metoprolol succinate ER 200 mg tablet,extended release 24 hr RxNorm: 290513 Take 1 Tablet(s) Oral QD 07/08/19 021 Inactive Vitamin D3 25 mcg (1,000 unit) tablet RxNorm: 810295 Take 1 Tablet(s) Oral QD 07/08/19 021 Inactive isosorbide dinitrate 30 mg tablet RxNorm: 467754 Take 1 Tablet(s) Oral QD 07/08/19 021 Inactive Levemir FlexTouch U-100 Insulin 100 unit/mL (3 mL) subcutaneous pen RxNorm: 058674 Inject 140 Unit(s) Subcutaneous BID 07/08/19 021 Inactive torsemide 20 mg tablet RxNorm: 916869 Take 1 Tablet(s) Oral QD 07/08/19 023 Inactive venlafaxine 75 mg tablet RxNorm: 471426 Take 1 Tablet(s) Oral QD 07/08/19 021 Inactive acetaminophen 500 mg tablet RxNorm: 723205 Take 1 Tablet(s) Oral TID as needed for headache 06/18/19 021 Inactive acetaminophen 500 mg tablet RxNorm: 234396 Take 1 Tablet(s) Oral TID as needed for headache 06/18/19 021 Inactive Lyrica 100 mg capsule RxNorm: 659292 Take 1 Capsule(s) Oral QHS every night at bedtime 06/11/19 021 Inactive Lyrica 50 mg capsule RxNorm: 240604 Take 1 Capsule(s) Oral QAM every morning 06/10/19 21 021 Inactive hydrocortisone 2.5 % topical cream RxNorm: 035134 Apply to bilateral groin creases Topical BID 05/15/20 20 021 Inactive clotrimazole 1 % topical cream RxNorm: 153132 Apply to bilateral groin areas Topical BID 05/15/20 20 021 Inactive Lyrica 50 mg capsule RxNorm: 132959 Take 1 Capsule(s) Oral QAM every morning 05/14/20 20 Inactive Lyrica 100 mg capsule RxNorm: 918355 Take 1 Capsule(s) Oral QHS every night at bedtime 05/14/20 20 Inactive Lancets,Thin 28 gauge RxNorm: Use 1 as directed QID and PRN 04/24/20 20 Inactive Blood Glucose Monitoring kit RxNorm: Use as directed QID and PRN 04/24/20 20 024 Inactive Blood Glucose Test strips RxNorm: Use [...] Inactive Nystop 100,000 unit/gram topical powder RxNorm: 893379 Apply to abd folds, under breasts and L side of groin Topical BID x 14 days, then BID PRN 04/08/20 20 Inactive dx: yeast dermatitis Lyrica 100 mg capsule RxNorm: 772965 Take 1 Capsule(s) Oral QHS every night at bedtime 03/13/20 20 Inactive Lyrica 50 mg capsule RxNorm: 884932 Take 1 Capsule(s) Oral QAM every morning 03/13/20 20 Inactive ketoconazole 2 % shampoo RxNorm: 604397 Apply Topical two times a week with showers 03/11/20 20 024 Inactive cholecalciferol (vitamin D3) 50 mcg (2,000 unit) tablet RxNorm: 469310 Take 1 Tablet(s) Oral QD 03/11/20 20 021 Inactive Zetia 10 mg tablet RxNorm: 508937 Take 1 Tablet(s) Oral QD 03/07/20 20 04/27/2 021 Inactive Zetia 10 mg tablet RxNorm: 031813 Take 1 Tablet(s) Oral QD 03/07/20 20 Inactive Lyrica 50 mg capsule RxNorm: 294116 Take 1 Capsule(s) Oral QAM every morning 02/15/20 20 Inactive Lyrica 100 mg capsule RxNorm: 850544 Take 1 Capsule(s) Oral QHS every night at bedtime 02/15/20 20 Inactive Lyrica 100 mg capsule RxNorm: 560096 Take 1 Capsule(s) Oral QHS every night at bedtime 02/15/20 20 Inactive Lyrica 50 mg capsule RxNorm: 260020 Take 1 Capsule(s) Oral QAM every morning 02/15/20 20 Inactive metoprolol succinate ER 200 mg tablet,extended release 24 hr RxNorm: 153606 Take 1 Tablet(s) Oral QD 08/11 Activeloperamide 2 mg capsuleRxNorm: 244467Arns 1 Capsule(s) Oral QID as needed 06/12/2021ctivehydralazine 50 mg tabletRxNorm: 390011Fikb 1 Tablet(s) Oral QID 08/11/2022ctivevenlafaxine ER 75 mg capsule,extended release 24 hrRxNorm: 280345Kafc 3 Capsule(s) Oral QD/Inactivepolyethylene glycol 3350 17 gram/dose oral powderRxNorm: 301973Tfbw 17=1 capful Gram(s) Oral BID as needed mix with 4-8oz of esgrme90/Inactiveicosapent ethyl 1 gram capsuleRxNorm: 7948408Frxv 2 Capsule(s) (2 gm) Oral BID with meals /InactiveOkay to dispense one 2gm tab if you have that available.Levemir FlexTouch U-100 Insulin 100 unit/mL (3 mL) subcutaneous pen RxNorm: 213633Xcklwy 80 Unit(s) Subcutaneous BID/Inactive Novolog Flexpen U-100 Insulin aspart 100 unit/mL (3 mL) subcutaneousRxNorm: 8953299Mexnzq 30 Unit(s) Subcutaneous TID with mealsInactive Medication Administered No Medication Administered data Reason For Visit No Reason For Visit data Plan of Care Planned Activity Notes Codes Status Date Referral: [facility] WPtel: [address], [address] [id number] USReferralRecords [id number]/08/2023Referral: [facility] WPtel: [address] [id number]/12/2022Referral: General CardiologyReferralCompleted 1Referral: General PsychologistReferralClosedReferral: General PsychiatristReferralPatient/Family [...] Sister Jyotsna involved in his care cell# [phone] Guardian: Don (tapan met in person 09/01/21), now has Lexii (same group as don)Lab Schedule: /September*September (CBC with diff, CMP, A1c) (Novemebr: CBC, CMP, A1c, Lipids, VitD) 10/08/2023
--- OUTSIDE RECORDS SUMMARY | 2023-11-03 10:27 | XMS_ITS | CCD ---
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 Name Role Phone [facility] Primary Care Provider Leona vailable [facility], [facility] Chronic Care Management U navailable Summary Purpose DataExchange Insurance Providers Payer name Policy type / Coverage type Covered constitution party ID Effective Begin Date Effective End Date [place] [id number] Unknown Unknown Medicaid [place] [id number] Unknown Unknown Family history Sister Brittany Suggs [...] Half-Way 09/03/[address]: 9291172 Non-Smoker / No History of Smoking 09/02/[address]: 167728402 No Alcohol Consum ption 09/02/2020 Allergies, Adverse Reactions, Alerts Substance Reaction Codes Entered Date Inactivated Date Status * NO KNOWN FOOD ALLERGIES Dfemgyr6807/13/2023No Inactive DateActiveLISINOPRILRxNorm: 9260622No Inactive DateActiveMetformin RJmJlniinc84/28/2020No Inactive DateActive* NO KNOWN ENVIRONMENTAL [id number]/27/2024No Inactive DateActive Problems Condition Codes Effective Dates [...] disease)ICD-10: I73.9 ICD-9: 443.903/ctiveCoronary artery disease involving lovelock coronary artery of lovelock heart, angina presence unspecifiedICD-10: I25.10 ICD-9: 414.0102/ctiveReducible umbilical herniaICD-10: K42.9 ICD-9: 553.111/ctiveBMI 60.0-69.9, adultICD-10: Z68.44 ICD-9: V85.4410/ctiveCandidal intertrigoICD-10: B37.2 ICD-9: 112.310/ctiveHyperlipidemia, unspecifiedICD-10: E78.5 ICD-9: 272.410/ctiveInappropriate sexual behaviorICD-10: Z72.89 ICD-9: 312.8910/ctiveLearning disabilityICD-10: F81.9 ICD-9: 315.210/ctiveOther skilled nursing (current) drug therapyICD-10: Z79.899 ICD-9: V58.6910/ctiveAnnual physical examICD-10: Z00.00 ICD-9: V70.009/ctiveHypokalemiaICD-10: E87.6 ICD-9: 276.807/ctiveTinea pedis of both feetICD-10: B35.3 ICD-9: 110.407/ctiveParaparesis of both lower limbsICD-10: G82.20 ICD-9: 344.106/ctivePain of right heelICD-10: M79.671 ICD-9: 729.505/ctivePre-op evaluationICD-10: Z01.818 ICD-9: V72.8403/ctiveSecondary hypertensionICD-10: I15.9 ICD-9: 405.99033ActiveSeizure disorderICD-10: G40.909 ICD-9: 345.90112ActiveDepressionICD-10: F32.9 ICD-9: 16650/esolvedDVT (deep venous thrombosis)ICD-10: I82.409 ICD-9: 453.4009/esolvedEncounter for immunizationICD-10: Z23 ICD-9: V03.8909esolvedLong term (current) use of insulinICD-10: Z79.4 02/10/2022esolvedMuscular painICD-10: M79.10 ICD-9: 729.109esolvedHypertension associated with diabetesICD-10: E11.59 ICD-9: 250.8008/esolvedHistory of anemia due to CKDICD-10: N18.9 ICD-9: 585.907ctiveStage 2 chronic kidney diseaseICD-10: N18.2 ICD-9: 585.207/ctiveGout due to renal impairmentICD-10: M10.30 ICD-9: 274.1006ctiveCallus of heelICD-10: L84 ICD-9: 32223ctiveContact with and (suspected) exposure to covid-19ICD- 10: Z20.822 ICD-9: V01.7908esolvedOther infective acute otitis externa of left ear ICD-10: H60.392 ICD-9: 380.1008esolvedScrotal skin lesionICD-10: N50.9 ICD-9: 608.908esolvedAnemia due to stage 3b chronic kidney diseaseICD- 10: N18.32 ICD-9: 285.21010/01/2020esolvedChronic kidney disease, stage 3 unspecifiedICD- 10: N18.3004esolvedContact with and (suspected) exposure to other viral communicable diseasesICD-10: Z20.828 ICD-9: V01.7902/1ResolvedHyperhidrosis of palmsICD-10: L74.512 ICD-9: 705.9532ArmnrkIyoaaguzGbtbgwi31/28/2020ActiveDiabetes mellitus Type 7Nommyub11/28/2020ActiveAnemia in chronic kidney diseaseICD-10: D63.1 02/12/2020ResolvedHyperlipidemia, unspecifiedICD-10: E78.Resolved Medications Medication Codes Instructions Start Date Stop Date Status Fill Instructions erythromycin 5 mg/gram (0.5 %) eye ointment RxNorm: 737071 Apply 1 Application Both eyes QHS every night at bedtime Instill ~1 cm ribbon into affected eye 09/28/19 24 024 Inactive Artificial Tears (PF) 0.1 %-0.3 % drops in a dropperette RxNorm: 942756 Apply 1-2 Drop(s) Both eyes BID as needed 09/28/19 24 024 Inactive Artificial Tears (PF) 0.1 %-0.3 % drops in a dropperette RxNorm: 553302 Apply 1-2 Drop(s) Both eyes BID as needed 09/28/19 24 025 Active erythromycin 5 mg/gram (0.5 %) eye ointment RxNorm: 248968 Apply 1 Application Both eyes QHS every night at bedtime Instill ~1 cm ribbon into affected eye 09/28/19 24 024 Inactive acetaminophen 500 mg tablet RxNorm: 398401 (MAX APAP:4GM/24HR) Take 1 Tablet(s) Oral TID as needed for pain 09/24/19 24 024 Inactive carvedilol 25 mg tablet RxNorm: 752531 Take 1 Tablet(s) Oral QD 09/08/19 24 No Stop Date Active pregabalin 100 mg capsule RxNorm: 454552 Take 1 Capsule(s) Oral QAM every morning 09/07/19 24 024 Active rosuvastatin 40 mg tablet RxNorm: 932146 Take 1 Tablet(s) Oral QPM every evening 07/13/19 24 No Stop Date Active ezetimibe 10 mg tablet RxNorm: 744469 Take 1 Tablet(s) Oral QD 07/13/19 24 No Stop Date Active bisacodyl 10 mg rectal suppository RxNorm: 856900 Insert 1 Suppository Rectal QD as needed 07/13/19 24 No Stop Date Active polyethylene glycol 3350 17 gram/dose oral powder RxNorm: 644902 Take 17 Gram(s) Oral BID as needed mix in 4-8ox water 07/13/19 24 No Stop Date Active ketoconazole 2 % shampoo RxNorm: 174473 Apply 1 Application Topical UD as directed 07/13/19 24 No Stop Date Active aripiprazole 15 mg tablet RxNorm: 548747 Take 1/2 Tablet(s) Oral QD 07/13/19 24 No Stop Date Active Ozempic 1 mg/dose (4 mg/3 mL) subcutaneous pen injector RxNorm: 8162339 Inject 1 Milligram(s) Subcutaneous QW once a week 07/13/19 24 No Stop Date Active Guaifenesin AC 10 mg-100 mg/5 mL oral liquid RxNorm: 850167 Take 10 Milliliter(s) Oral Q4H every four hours as needed 07/13/19 24 No Stop Date Active isosorbide mononitrate ER 60 mg tablet,extended release 24 hr RxNorm: 848113 Take 1 Tablet(s) Oral QD 07/13/19 24 No Stop Date Active ammonium lactate 12 % topical cream RxNorm: 932458 Apply 1 Application Topical BID 07/13/19 24 No Stop Date Active hydrocortisone 2.5 % topical cream RxNorm: 666500 Apply 1 Application Topical BID as needed 07/13/19 24 No Stop Date Active rosuvastatin 20 mg sprinkle capsule RxNorm: 5247765 Take 1 Capsule(s) Oral QD 07/13/19 24 No Stop Date Active Vascepa 1 gram capsule RxNorm: 0284282 Take 2 Capsule(s) Oral BID 07/13/19 24 No Stop Date Active venlafaxine ER 75 mg capsule,extended release 24 hr RxNorm: 105758 Take 3 Capsule(s) Oral QD 07/13/19 24 No Stop Date Active Basaglar ZaPen U-100 Insulin 100 unit/mL (3 mL) subcutaneous RxNorm: 4590802 Inject 30U SubQ twice daily 07/07/19 24 025 Active Please dispense one month supply. Tusharagldestin MendenhallPen U-100 Insulin 100 unit/mL (3 mL) subcutaneous RxNorm: 6592115 Inject 30U SubQ twice daily 07/07/19 24 024 Inactive Please dispense one month supply. pregabalin 150 mg capsule RxNorm: 093604 Take 1 Capsule(s) Oral QHS every night at bedtime 07/05/19 24 024 Active pregabalin 150 mg capsule RxNorm: 655101 Take 1 Capsule(s) Oral QHS every night at bedtime 07/05/19 24 024 Inactive polyethylene glycol 3350 17 gram/dose oral powder RxNorm: 490113 Take 1 Packet Oral QD as needed (1 packet = 17g) mix with 4-8oz of liquid 06/15/19 24 024 Inactive bisacodyl 10 mg rectal suppository RxNorm: 081581 Insert one suppository per rectum once daily as needed for constipation 06/15/19 24 024 Inactive bisacodyl 10 mg rectal suppository RxNorm: 137618 Insert one suppository per rectum once daily as needed for constipation 06/15/19 24 024 Inactive pregabalin 100 mg capsule RxNorm: 248822 Take 1 Capsule(s) Oral QAM every morning 04/27/20 23 024 Inactive Levemir FlexPen 100 unit/mL (3 mL) solution subcutaneous insulin pen RxNorm: 463023 Inject 30 Unit(s) Subcutaneous BID 04/27/20 23 024 Inactive rosuvastatin 40 mg tablet RxNorm: 226482 Take 1 Tablet(s) Oral QPM every evening 04/16/20 23 024 Inactive D/C rosuvastatin 20mg venlafaxine ER 75 mg capsule,extended release 24 hr RxNorm: 205272 Take 3 Capsule(s) Oral QD 04/14/20 23 023 Inactive pregabalin 100 mg capsule RxNorm: 688298 Take 1 Capsule(s) Oral QAM every morning [...] meter clotrimazole 1 % topical cream RxNorm: 988009 Take apply topically to abdominal folds twice daily for 14 days 03/12/20 024 Inactive Ozempic 1 mg/dose (4 mg/3 mL) subcutaneous pen injector RxNorm: 0212425 Inject 1 Milligram(s) Subcutaneous QW once a week 03/11/20 023 Inactive rosuvastatin 20 mg tablet RxNorm: 607889 Take 1 Tablet(s) Oral QD 02/26/20 023 Inactive d/c pravastatin 80mg Ozempic 1 mg/dose (4 mg/3 mL) subcutaneous pen injector RxNorm: 9489992 Inject 1 Milligram(s) Subcutaneous QW once a week 02/20/20 023 Inactive pregabalin 150 mg capsule RxNorm: 671431 Take 1 Capsule(s) Oral HS at bed time 02/19/20 023 Inactive pregabalin 100 mg capsule RxNorm: 305195 Take 1 Capsule(s) Oral QAM every morning 02/18/20 023 Inactive venlafaxine ER 75 mg capsule,extended release 24 hr RxNorm: 602765 Take 3 Capsule(s) Oral QD 02/04/20 23 023 Inactive FreeStyle Chema 2 Sensor kit RxNorm: use as directed 02/04/20 23 023 Inactive FreeStyle Chema 2 Sensor kit RxNorm: use as directed 02/04/20 23 024 Inactive fluconazole 150 mg tablet RxNorm: 191300 Take 1 Tablet(s) Oral on day 3 and on day 6 02/03/20 23 024 Active chlorthalidone 25 mg tablet RxNorm: 891892 Take 1 Tablet(s) Oral QAM every morning 02/03/20 No Stop Date Active venlafaxine ER 150 mg capsule,extended release 24 hr RxNorm: 088834 Take 1 Capsule(s) Oral QD 02/03/20 023 Inactive acetaminophen 500 mg tablet RxNorm: 178727 1 TABLET ORALLY 3 TIMES DAILY (MAX APAP:4GM/24HR) 12/15/19 023 Inactive potassium chloride ER 20 mEq tablet,extended release RxNorm: 260583 Take 1 Tablet(s) Oral BID 12/09/19 024 Inactive d/c 20mEq once daily (sent from hospital) clotrimazole 1 % topical cream RxNorm: 305391 apply 1g topically to top of feet and in between toes BID 12/09/19 023 Inactive nystatin 100,000 unit/gram topical powder RxNorm: 522869 APPLY TO AFFECTED AREAS TOPICALLY 2 TIMES DAILY 11/21/19 024 Inactive Nystop 100,000 unit/gram topical powder RxNorm: 591860 Apply to abd folds, under breasts and L side of groin Topical BID x 14 days, then BID PRN 11/20/19 023 Inactive dx: yeast dermatitis [place] Ultra Strength 4 %-30 %-10 % topical cream RxNorm: 852536 Apply 1 Gram(s) Topical QID PRN to feet and legs for neuropathic pain 11/11/19 024 Active clotrimazole 1 % topical cream RxNorm: 170534 Apply 1/2 Gram(s) Topical BID Apply to affected areas of groin, periarea, and abdominal topically 2 times daily 11/10/19 23 023 Inactive hydrocortisone 2.5 % topical cream RxNorm: 610918 Apply 1/2 Gram(s) Topical BID as needed 11/10/19 024 Inactive Humulin R U-500 (Concentrated) Insulin 500 unit/mL subcutaneous soln RxNorm: 335925 Inject 100 Unit(s) Subcutaneous TID 10/07/19 024 Inactive Levemir FlexPen 100 unit/mL (3 mL) solution subcutaneous insulin pen RxNorm: 201910 Inject 30 Unit(s) Subcutaneous BID 10/07/19 23 023 Inactive Ozempic 0.25 mg or 0.5 mg (2 mg/3 mL) subcutaneous pen injector RxNorm: 3629136 Inject 1/2 Milligram(s) Subcutaneous QW once a week 10/07/19 024 Inactive aripiprazole 15 mg tablet RxNorm: 381577 1/2 TAB (7.5MG) ORALLY DAILY (DX:MAJOR DEPRESSIVE DISORDER) 09/23/19 023 Inactive Lancets,Thin 28 gauge RxNorm: Use 1 as directed QID 09/15/19 23 024 Inactive Accu-Chek Guide test strips RxNorm: Use 1 Test Strip QID 09/15/19 023 Inactive ok to substitute with any covered alternative test strip torsemide 20 mg tablet RxNorm: 003503 Take 1 Tablet(s) Oral BID 09/09/19 024 Inactive d/c once daily dosing carvedilol 25 mg tablet RxNorm: 292879 Take 1 Tablet(s) Oral QD 08/25/19 23 024 Inactive pregabalin 150 mg capsule RxNorm: 204377 1 Capsule(s) Oral HS at bed time 08/18/19 23 023 Inactive pregabalin 100 mg capsule RxNorm: 098050 1 Capsule(s) Oral QAM every morning 08/18/19 023 Inactive carvedilol 25 mg tablet RxNorm: 522748 1 Tablet(s) Oral QD 07/28/19 23 023 Inactive lisinopril 20 mg tablet RxNorm: 807632 Give 1 Tablet(s) Oral QD 07/28/19 23 023 Inactive Lyrica 150 mg capsule RxNorm: 915662 Take 1 Capsule(s) Oral QHS every night at bedtime 07/19/19 23 023 Inactive d/c 100mg dose Diflucan 150 mg tablet RxNorm: 235157 Take 1 Tablet(s) Oral QD repeat on day 3 and 6 07/19/19 23 023 Inactive pregabalin 100 mg capsule RxNorm: 657301 Take 1 Capsule(s) Oral QAM every morning 07/19/19 23 023 Inactive gatifloxacin 0.5 % eye drops RxNorm: 045071 Instill 1 Drop(s) as directed TID Instill 1 drop in to affected eye(s) starting 1 day prior to surgery and continue until gone (do not exceed 4 weeks). 07/13/19 023 Inactive carvedilol 25 mg tablet RxNorm: 865207 2 Tablet(s) Oral BID 07/13/19 023 Inactive Humulin R Regular U-100 Insulin 100 unit/mL injection solution RxNorm: 177229 85 Unit(s) Injection TID 07/13/19 023 Inactive ketorolac 0.5 % eye drops RxNorm: 944224 Instill 1 Drop(s) as directed QID Instill 1 drop into affected eye(s) 4 times daily starting 1 day prior to surgery and continue until gone (do not exceed 4 weeks). 07/13/19 023 Inactive Diflucan 150 mg tablet RxNorm: 603717 Take 1 Tablet(s) Oral QD repeat on day 3 and 6 06/30/19 23 023 Inactive Accu-Chek Guide test strips RxNorm: Use 1 Test Strip QID Use 1 test strip to monitor blood glucose 4 times daily and as needed. Dx:E11.42. 06/23/19 023 Inactive ok to substitute with any covered alternative test strip dextromethorphan-gu aifenesin 10 mg-100 mg/5 mL oral liquid RxNorm: 309195 Take 10 Milliliter(s) Oral every 4 hours as needed for cough 06/19/19 23 023 Inactive dextromethorphan-gu aifenesin 10 mg-100 mg/5 mL oral liquid RxNorm: 509399 Take 10 Milliliter(s) Oral every 4 hours as needed for cough 06/19/19 23 023 Inactive Lyrica 150 mg capsule RxNorm: 842620 Take 1 Capsule(s) Oral QHS every night at bedtime 02 023 Inactive d/c 100mg dose aripiprazole 15 mg tablet RxNorm: 004911 /2 TAB (7.5MG) ORALLY DAILY (DX:MAJOR DEPRESSIVE DISORDER) 06/05/19 023 Inactive pregabalin 100 mg capsule RxNorm: 476314 1 Capsule(s) Oral QAM every morning 06/02/19 023 Inactive Banophen 50 mg capsule RxNorm: 3747551 Take 1 Capsule(s) Oral Q6H every 6 hours as needed 05/19/19 23 No Stop Date Active Novolog Flexpen U-100 Insulin aspart 100 unit/mL (3 mL) subcutaneous RxNorm: 0883254 Inject 10 Unit(s) Subcutaneous QHS every night at bedtime with nighttime snack 04/08/20 022 Inactive Novolog Flexpen U-100 Insulin aspart 100 unit/mL (3 mL) subcutaneous RxNorm: 8274179 Inject 42 Unit(s) Subcutaneous TID in addition to sliding scale 04/08/20 022 Inactive d/c 36u albuterol sulfate HFA 90 mcg/actuation aerosol inhaler RxNorm: 9328510 Take 2 Puff(s) Inhalation Q4H every four hours as needed as needed for SOB, cough, or wheezing 04/07/20 030 Active Banophen 50 mg capsule RxNorm: 1419979 Take 1 Capsule(s) Oral Q6H every 6 hours as needed 04/06/20 023 Inactive diphenhydramine 50 mg tablet RxNorm: 9671860 Take 1 Tablet(s) Oral Q6H every 6 hours as needed 04/06/20 22 022 Inactive diphenhydramine 50 mg tablet RxNorm: 3140534 1 Tablet(s) Oral Q6H every 6 hours as needed 04/06/20 22 022 Inactive Abilify 15 mg tablet RxNorm: 489192 1/2 Tablet(s) Oral QD 03/10/20 22 023 Inactive Shingrix (PF) 50 mcg/0.5 mL intramuscular suspension, kit RxNorm: 5807825 Administer 1/2 Milliliter(s) Intramuscular QD one time shingrix step 2 ( step 1 given 11/04/21) WITH needle - Nursing please administer upon arrival and once administered post a bridge message with date of administration, bin operator, expiration date, and lot# so we can update [facility] 02/18/20 22 022 Inactive dispense with needle Shingrix (PF) 50 mcg/0.5 mL intramuscular suspension, kit RxNorm: 2865713 Administer 1/2 Milliliter(s) Intramuscular QD one time shingrix step 2 ( step 1 given 11/04/21) WITH needle - Nursing please administer upon arrival and once administered post a bridge message with date of administration, bin operator, expiration date, and lot# so we can update [facility] 02/18/20 22 022 Inactive dispense with needle polyethylene glycol 3350 17 gram/dose oral powder RxNorm: 993736 Take 17=1 capful Gram(s) Oral QD mix with 4-8oz of liquid 01/08/20 22 023 Inactive take this in addition to BID prn order Lyrica 100 mg capsule RxNorm: 516691 Take 1 Capsule(s) Oral QAM every morning 01/08/20 22 022 Inactive d/c 50mg dose acetaminophen 500 mg tablet RxNorm: 645219 Take 1 Tablet(s) Oral TID 01/08/20 22 022 Inactive d/c PRN order Lyrica 150 mg capsule RxNorm: 650020 Take 1 Capsule(s) Oral QHS every night at bedtime 01/08/20 22 023 Inactive d/c 100mg dose Abilify 5 mg tablet RxNorm: 465951 Take 1 Tablet(s) Oral QD take 1 tab po QD #30 refill 5 dx: MDD 12/12/19 22 022 Inactive Abilify 5 mg tablet RxNorm: 565457 Take 1 Tablet(s) Oral QD take 1 tab po QD #30 refill 5 dx: MDD 12/12/19 22 022 Inactive Novolog Flexpen U-100 Insulin aspart 100 unit/mL (3 mL) subcutaneous RxNorm: 3661403 Inject 42 Unit(s) Subcutaneous TID in addition to sliding scale 12/10/19 22 022 Inactive d/c 36u chlorthalidone 25 mg tablet RxNorm: 262354 Take 1 Tablet(s) Oral QAM every morning 12/10/19 22 023 Inactive pregabalin 50 mg capsule RxNorm: 448281 Take 1 Capsule(s) Oral QAM every morning 11/12/19 22 022 Inactive tetanus-diphtheria toxoids-Td 2 Lf unit-2 Lf unit/0.5 mL IM suspension RxNorm: 139 Take 0.5 Miscellaneous Intramuscular 11/12/19 22 022 Inactive need tdap - nursing to administer upon arrival pregabalin 50 mg capsule RxNorm: 445240 Take 1 Capsule(s) Oral QAM every morning 10/16/19 22 Inactive pregabalin 50 mg capsule RxNorm: 491052 Take 1 Capsule(s) Oral QAM every morning 10/16/19 22 022 Inactive pregabalin 50 mg capsule RxNorm: 610595 1 Capsule(s) Oral QAM every morning 10/15/19 22 022 Inactive Shingrix (PF) 50 mcg/0.5 mL intramuscular suspension, kit RxNorm: 6347529 Administer 1/2 Milliliter(s) Intramuscular one time Nursing please administer upon arrival and once administered post a bridge message with date of administration, bin operator, expiration date, and lot# so we can update [facility]. 10/09/19 22 022 Inactive shingrix step 1 Shingrix (PF) 50 mcg/0.5 mL intramuscular suspension, kit RxNorm: 7402311 Administer 1/2 Milliliter(s) Intramuscular one time Nursing please administer upon arrival and once administered post a bridge message with date of administration, bin operator, expiration date, and lot# so we can update [facility]. 10/09/19 22 022 Inactive shingrix step 1 cholecalciferol (vitamin D3) 1,250 mcg (50,000 unit) capsule RxNorm: 597314 Take 1 Capsule(s) Oral QW once a [...] aspart 100 unit/mL (3 mL) subcutaneous RxNorm: 8771961 Inject 10 Unit(s) Subcutaneous QHS every night at bedtime with nighttime snack 10/08/19 22 Inactive Shingrix (PF) 50 mcg/0.5 mL intramuscular suspension, kit RxNorm: 7362781 ADMINISTER 2-DOSE SERIES PER CDC GUIDELINES 10/08/19 22 Active Shingrix (PF) 50 mcg/0.5 mL intramuscular suspension, kit RxNorm: 8088306 ADMINISTER 2-DOSE SERIES PER CDC GUIDELINES 10/08/19 22 Inactive Novolog Flexpen U-100 Insulin aspart 100 unit/mL (3 mL) subcutaneous RxNorm: 3714140 Inject 36 Unit(s) Subcutaneous TID in addition to sliding scale 10/08/19 22 Inactive Novofine Autocover 30 gauge x 1/3 needle RxNorm: Use 1 Miscellaneous UD as directed Use 1 needle as directed to administer insulin 5 times a day Dx:E11.42. 10/03/19 Inactive ok to substitute with any covered alternative pen needle benzoyl peroxide 10 % topical cleanser RxNorm: 212004 Apply 1 Application Topical QD apply to face, wash rinse and dry once daily (may change to QOD if drying) 08/19/19 22 022 Inactive (%covered by insurance) #60ml refill 11 dx: acne benzoyl peroxide 10 % topical cleanser RxNorm: 756874 Apply 1 Application Topical QD apply to face, wash rinse and dry once daily (may change to QOD if drying) 08/19/19 22 Inactive (%covered by insurance) #60ml refill 11 dx: acne benzoyl peroxide 10 % topical cleanser RxNorm: 654731 Apply 1 Application Topical QD apply to face, wash rinse and dry once daily (may change to QOD if drying) 08/19/19 22 022 Inactive (%covered by insurance) #60ml refill 11 dx: acne Lyrica 50 mg capsule RxNorm: 160155 Take 1 Capsule(s) Oral QAM every morning Take 1 capsule by mouth once daily 08/19/19 22 022 Inactive benzoyl peroxide 10 % topical cleanser RxNorm: 265450 Apply 1 Application Topical QD apply to face, wash rinse and dry once daily (may change to QOD if drying) 08/19/19 22 022 Inactive (%covered by insurance) #60ml refill 11 dx: acne Lyrica 100 mg capsule RxNorm: 531140 Take 1 Capsule(s) Oral QHS every night at bedtime Take 1 capsule by mouth once daily at bedtime 08/19/19 22 022 Inactive Lyrica 100 mg capsule RxNorm: 683877 Take 1 Capsule(s) Oral QHS every night at bedtime Take 1 capsule by mouth once daily at bedtime 08/16/19 22 022 Inactive Lyrica 50 mg capsule RxNorm: 241756 Take 1 Capsule(s) Oral QAM every morning Take 1 capsule by mouth once daily 08/16/19 22 022 Inactive Levemir FlexTouch U-100 Insulin 100 unit/mL (3 mL) subcutaneous pen RxNorm: 191062 Inject 86 Unit(s) Subcutaneous BID 08/05/19 22 022 Inactive d/c 83units BID Lyrica 100 mg capsule RxNorm: 672939 Take 1 Capsule(s) Oral QHS every night at bedtime Take 1 capsule by mouth once daily at bedtime 07/14/19 22 022 Inactive Lyrica 50 mg capsule RxNorm: 386707 Take 1 Capsule(s) Oral QAM every morning Take 1 capsule by mouth once daily 07/14/19 22 022 Inactive Levemir FlexTouch U-100 Insulin 100 unit/mL (3 mL) subcutaneous pen RxNorm: 557417 Inject 83 Unit(s) Subcutaneous BID 07/08/19 22 [...] test strip hydralazine 50 mg tablet RxNorm: 193532 Take 1 Tablet(s) Oral QID 05/05/20 21 022 Inactive venlafaxine ER 225 mg tablet,extended release 24 hr RxNorm: 209373 Take 1 Tablet(s) Oral QD 05/05/20 21 021 Inactive venlafaxine ER 225 mg tablet,extended release 24 hr RxNorm: 520042 Take 1 Tablet(s) Oral QD 05/05/20 022 Inactive isosorbide mononitrate ER 30 mg tablet,extended release 24 hr RxNorm: 603170 Take 1 Tablet(s) Oral QD 05/05/20 024 Inactive hydralazine 50 mg tablet RxNorm: 635007 Take 1 Tablet(s) Oral QID 05/05/20 21 021 Inactive aspirin 81 mg tablet,delayed release RxNorm: 841025 Take 1 Tablet(s) Oral QD 03/31/20 022 Inactive Vitamin D2 1,250 mcg (50,000 unit) capsule RxNorm: 2668465 Take 1 Capsule(s) Oral QW once a week x 12 weeks 03/31/20 Inactive Vitamin D2 1,250 mcg (50,000 unit) capsule RxNorm: 2254315 Take 1 Capsule(s) Oral QW once a week 03/31/20 Inactive Zetia 10 mg tablet RxNorm: 420742 Take 1 Tablet(s) Oral QD 03/31/20 024 Inactive Zetia 10 mg tablet RxNorm: 804142 Take 1 Tablet(s) Oral QD 03/31/20 021 Inactive hydralazine 25 mg tablet RxNorm: 267424 Take 1 Tablet(s) Oral QID 03/31/20 21 021 Inactive hydralazine 25 mg tablet RxNorm: 239488 Take 1 Tablet(s) Oral QID 03/31/20 021 Inactive hydralazine 10 mg tablet RxNorm: 249577 Take 1 Tablet(s) Oral QID 03/03/20 021 Inactive cephalexin 500 mg tablet RxNorm: 401408 Take 1 Tablet(s) Oral QID 02/27/20 021 Inactive cephalexin 500 mg tablet RxNorm: 724655 Take 1 Tablet(s) Oral QID 02/27/20 21 021 Inactive lisinopril 40 mg tablet RxNorm: 426539 Take 1 Tablet(s) Oral QD 02/11/20 023 Inactive Eliquis 5 mg tablet RxNorm: 8355705 Take 1 Tablet(s) Oral BID 01/05/20 21 022 Inactive Eliquis 5 mg tablet RxNorm: 0080949 Take 2 Tablet(s) Oral QD 01/01/20 21 021 Inactive Lyrica 50 mg capsule RxNorm: 974502 Take 1 Capsule(s) Oral QAM every morning 12/24/19 21 021 Inactive Lyrica 100 mg capsule RxNorm: 960668 Take 1 Capsule(s) Oral QHS every night at bedtime 12/24/19 021 Inactive clotrimazole 1 % topical cream RxNorm: 596878 Apply to right foot and toes Topical BID 12/04/19 21 023 Inactive metoprolol succinate ER 200 mg tablet,extended release 24 hr RxNorm: 400011 Take 1 Tablet(s) Oral QD 12/04/19 21 023 Inactive ciprofloxacin 500 mg tablet RxNorm: 062877 Take 1 Tablet(s) Oral QD 11/30/19 021 Inactive DX ofloxacin otic drops Accu-Chek Guide test strips RxNorm: USE 1 TO CHECK GLUCOSE 4 TIMES DAILY AND NEEDED 11/15/19 21 023 Inactive Blood Glucose Test strips RxNorm: Use 1 Test Strip QID at PRN 11/05/19 21 023 Inactive E11.42 lisinopril 30 mg tablet RxNorm: 966740 Take 1 Tablet(s) Oral QD 10/30/19 021 Inactive lisinopril 20 mg tablet RxNorm: 435479 Take 1 Tablet(s) Oral QD 10/23/19 021 Inactive lisinopril 20 mg tablet RxNorm: 296136 Take 1 Tablet(s) Oral QD 10/23/19 21 021 Inactive lisinopril 10 mg tablet RxNorm: 076027 Take 1 Tablet(s) Oral QD 10/02/19 21 021 Inactive icosapent ethyl 1 gram capsule RxNorm: 5374556 Take 2 Capsule(s) (2 gm) Oral BID with meals 09/12/19 21 024 Inactive Okay to dispense one 2gm tab if you have that available. icosapent ethyl 1 gram capsule RxNorm: 6849330 Take 2 Capsule(s) Oral BID 09/12/19 21 021 Inactive Okay to dispense one 2gm tab if you have that available. amlodipine 10 mg tablet RxNorm: 237925 Take 1 Tablet(s) Oral QD 09/04/19 21 022 Inactive aspirin 81 mg tablet,delayed release RxNorm: 720914 Take 1 Tablet(s) Oral QD 09/04/19 21 021 Inactive Levemir FlexTouch U-100 Insulin 100 unit/mL (3 mL) subcutaneous pen RxNorm: 769877 Inject 150 Unit(s) Subcutaneous BID 09/04/19 21 022 Inactive venlafaxine ER 150 mg tablet,extended release 24 hr RxNorm: 393900 Take 1 Tablet(s) Oral QD 09/04/19 Inactive clotrimazole-betame thasone 1 %-0.05 % topical cream RxNorm: 115959 Apply to rash on red area on left abdomen/chest Topical BID 08/10/19 21 Inactive amlodipine 5 mg tablet RxNorm: 850085 Take 1 Tablet(s) Oral QD 07/31/19 Inactive cephalexin 500 mg tablet RxNorm: 396313 Take 1 Tablet(s) Oral BID BID - Twice Daily 07/31/19 21 021 Inactive Start 08/01/20 pantoprazole 40 mg tablet,delayed release RxNorm: 360697 Take 1 Tablet(s) Oral QAM every morning 07/08/19 022 Inactive senna 8.6 mg tablet RxNorm: 876135 Take 1 Tablet(s) Oral QD 07/08/19 022 Inactive carbamazepine 200 mg tablet RxNorm: 821687 Take 1 Tablet(s) Oral BID 07/08/19 21 022 Inactive clopidogrel 75 mg tablet RxNorm: 295688 Take 1 Tablet(s) Oral QD 07/08/19 21 021 Inactive Blood Glucose Test strips RxNorm: Use 1 Test Strip QID at PRN 07/08/19 21 021 Inactive E11.42 Novolog Flexpen U-100 Insulin aspart 100 unit/mL (3 mL) subcutaneous RxNorm: 3802613 Administer per sliding scale Milliliter(s) Subcutaneous TID 151-200: 10 u; 201-250: 20 u; 251-300: 30 u; 301-350: 40 u; 351-400: 50 u. 07/08/19 022 Inactive lisinopril 5 mg tablet RxNorm: 481046 Take 1 Tablet(s) Oral QD 07/08/19 21 021 Inactive Novolog Flexpen U-100 Insulin aspart 100 unit/mL (3 mL) subcutaneous RxNorm: 2814574 Inject 85 Unit(s) Subcutaneous TID 07/08/19 022 Inactive pravastatin 80 mg tablet RxNorm: 098575 Take 1 Tablet(s) Oral QHS every night at bedtime 07/08/19 023 Inactive clotrimazole 1 % topical cream RxNorm: 612866 Apply to bilateral groin areas Topical BID 07/08/19 022 Inactive metoprolol succinate ER 200 mg tablet,extended release 24 hr RxNorm: 226644 Take 1 Tablet(s) Oral QD 07/08/19 021 Inactive Vitamin D3 25 mcg (1,000 unit) tablet RxNorm: 649952 Take 1 Tablet(s) Oral QD 07/08/19 021 Inactive isosorbide dinitrate 30 mg tablet RxNorm: 534990 Take 1 Tablet(s) Oral QD 07/08/19 021 Inactive Levemir FlexTouch U-100 Insulin 100 unit/mL (3 mL) subcutaneous pen RxNorm: 796735 Inject 140 Unit(s) Subcutaneous BID 07/08/19 021 Inactive torsemide 20 mg tablet RxNorm: 615361 Take 1 Tablet(s) Oral QD 07/08/19 21 023 Inactive venlafaxine 75 mg tablet RxNorm: 488004 Take 1 Tablet(s) Oral QD 07/08/19 21 021 Inactive acetaminophen 500 mg tablet RxNorm: 087074 Take 1 Tablet(s) Oral TID as needed for headache 06/18/19 21 021 Inactive acetaminophen 500 mg tablet RxNorm: 249161 Take 1 Tablet(s) Oral TID as needed for headache 06/18/19 21 021 Inactive Lyrica 100 mg capsule RxNorm: 431857 Take 1 Capsule(s) Oral QHS every night at bedtime 06/11/19 21 021 Inactive Lyrica 50 mg capsule RxNorm: 828776 Take 1 Capsule(s) Oral QAM every morning 06/10/19 21 021 Inactive hydrocortisone 2.5 % topical cream RxNorm: 978902 Apply to bilateral groin creases Topical BID 05/15/20 20 021 Inactive clotrimazole 1 % topical cream RxNorm: 121345 Apply to bilateral groin areas Topical BID 05/15/20 20 021 Inactive Lyrica 50 mg capsule RxNorm: 692541 Take 1 Capsule(s) Oral QAM every morning 05/14/20 20 020 Inactive Lyrica 100 mg capsule RxNorm: 915778 Take 1 Capsule(s) Oral QHS every night at bedtime 05/14/20 20 020 Inactive Lancets,Thin 28 gauge RxNorm: Use 1 as directed QID and PRN 04/24/20 20 020 Inactive Blood Glucose Monitoring kit [...] Inactive Nystop 100,000 unit/gram topical powder RxNorm: 313025 Apply to abd folds, under breasts and L side of groin Topical BID x 14 days, then BID PRN 04/08/20 20 Inactive dx: yeast dermatitis Lyrica 100 mg capsule RxNorm: 057002 Take 1 Capsule(s) Oral QHS every night at bedtime 03/13/20 20 Inactive Lyrica 50 mg capsule RxNorm: 164150 Take 1 Capsule(s) Oral QAM every morning 03/13/20 20 Inactive ketoconazole 2 % shampoo RxNorm: 891334 Apply Topical two times a week with showers 03/11/20 20 Inactive cholecalciferol (vitamin D3) 50 mcg (2,000 unit) tablet RxNorm: 278937 Take 1 Tablet(s) Oral QD 03/11/20 20 Inactive Zetia 10 mg tablet RxNorm: 799351 Take 1 Tablet(s) Oral QD 03/07/20 20 Inactive Zetia 10 mg tablet RxNorm: 961867 Take 1 Tablet(s) Oral QD 03/07/20 20 Inactive Lyrica 50 mg capsule RxNorm: 829950 Take 1 Capsule(s) Oral QAM every morning 02/15/20 20 Inactive Lyrica 100 mg capsule RxNorm: 918100 Take 1 Capsule(s) Oral QHS every night at bedtime 02/15/20 20 Inactive Lyrica 100 mg capsule RxNorm: 405627 Take 1 Capsule(s) Oral QHS every night at bedtime 02/15/20 20 Inactive Lyrica 50 mg capsule RxNorm: 947402 Take 1 Capsule(s) Oral QAM every morning 02/15/20 20 Inactive metoprolol succinate ER 200 mg tablet,extended release 24 hr RxNorm: 463002 Take 1 Tablet(s) Oral QD 08/11 Activeloperamide 2 mg capsuleRxNorm: 188406Viep 1 Capsule(s) Oral QID as needed 06/12/2021ctivehydralazine 50 mg tabletRxNorm: 942702Orlw 1 Tablet(s) Oral QID 08/11/2022ctivevenlafaxine ER 75 mg capsule,extended release 24 hrRxNorm: 759195Cruo 3 Capsule(s) Oral QD06/12//Inactivepolyethylene glycol 3350 17 gram/dose oral powderRxNorm: 820856Vpsm 17=1 capful Gram(s) Oral BID as needed mix with 4-8oz of vjnyoj24/Inactiveicosapent ethyl 1 gram capsuleRxNorm: 3139488Ronw 2 Capsule(s) (2 gm) Oral BID with meals /InactiveOkay to dispense one 2gm tab if you have that available.Levemir FlexTouch U-100 Insulin 100 unit/mL (3 mL) subcutaneous pen RxNorm: 010367Atjswv 80 Unit(s) Subcutaneous BID07/14//Inactive Novolog Flexpen U-100 Insulin aspart 100 unit/mL (3 mL) subcutaneousRxNorm: 1966231Drwsdt 30 Unit(s) Subcutaneous TID with meals/Inactive Medication Administered No Medication Administered data Reason For Visit No Reason For Visit data Plan of Care Planned Activity Notes Codes Status Date Referral: [facility] [address] [address] [id number] USReferralRecords [id number]/08/2023Referral: [facility] WPtel: [address] [id number]/12/2022Referral: General CardiologyReferralCompleted 1Referral: General PsychologistReferralClosedReferral: General PsychiatristReferralPatient/Family [...] Sister Jyotsna involved in his care cell# [phone] Guardian: Don (tapan met in person 09/01/21), now has Lexii (same group as don)Lab Schedule: /September*September (CBC with diff, CMP, A1c) (Novemebr: CBC, CMP, A1c, Lipids, VitD) 10/08/2023
--- OUTSIDE RECORDS SUMMARY | 2023-11-03 10:28 | XMS_ITS | CCD ---
Author Name Cecilio Durham ie Address 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 Name Role Phone Arpit MARCYKeeganHarrison Primary Care Provider Leona vailable EdmonsonHarrison Gomez [facility] U navailable Summary Purpose DataExchange Insurance Providers Payer name Policy type / Coverage type Covered libertarian ID Effective Begin Date Effective End Date [place] Part B [id number] Unknown Unknown [place] Medicare Part B [id number] Unknown Unknown Family history Sister Brittany Suggs [...] Unknown Custodial 09/03/[address]: 5506312 Non-Smoker / No History of Smoking 09/02/[address]: 421247717 No Alcohol Consum ption 09/02/2020 Allergies, Adverse Reactions, Alerts Substance Reaction Codes Entered Date Inactivated Date Status * NO KNOWN FOOD ALLERGIES Pcfbrzn0707/13/2023No Inactive DateActiveLISINOPRILRxNorm: 6420803No Inactive DateActiveMetformin VHyZhwrrnh67/28/2020No Inactive DateActive* NO KNOWN ENVIRONMENTAL ORIXSLPFSZrgtvlq22/27/2024No Inactive DateActive Problems Condition Codes Effective Dates Condition St atus Hypokalemia ICD-10: E87.6 ICD-9: 276.806/ctiveBMI 60.0-69.9, adultICD-10: Z68.44 ICD-9: V85.4405ctiveCandidal intertrigoICD-10: B37.2 ICD-9: 112.305/ctiveHistory of anemia due to CKDICD-10: N18.9 ICD-9: 585.905/ctiveLearning disabilityICD-10: F81.9 ICD-9: 315.205ctiveParaparesis of both lower limbsICD-10: G82.20 ICD-9: 344.105ctiveReducible umbilical herniaICD-10: K42.9 ICD-9: 553.105ctiveSeizure disorderICD-10: G40.909 ICD-9: 345.90010/12/2023ctiveCallus of heelICD-10: L84 ICD-9: 14179esolvedGout due to renal impairmentICD-10: M10.30 ICD-9: 274.10010/12/2023esolvedHyperhidrosis of palmsICD-10: L74.512 ICD-9: 705.21010/12/2023esolvedHyperlipidemia, unspecifiedICD-10: E78.5 ICD-9: 272.405esolvedOther tank terminal gauger (current) drug therapyICD-10: Z79.899 ICD-9: V58.6905esolvedPain of right heelICD-10: M79.671 ICD-9: 729.505/esolvedStage 2 chronic kidney diseaseICD-10: N18.2 ICD-9: 585.205esolvedTinea pedis of both feetICD-10: B35.3 ICD-9: 110.405esolvedAmputated toe of right footICD-10: S98.131A ICD-9: 895.004/ctiveConstipation by delayed colonic transitICD-10: K59.01 [...] ICD-9: V77.99044ResolvedImpacted cerumen, left earICD-10: H61.22 ICD-9: 380.4044ResolvedShortness of breathICD-10: R06.02 ICD-9: 786.0504/4ResolvedSkin tagICD-10: L91.8 ICD-9: 701.9044ResolvedLower extremity edemaICD-10: R60.0 ICD-9: 782.303/4ActiveMajor depression, recurrentICD-10: F33.9 ICD-9: 296.3003/ctivePVD (peripheral vascular disease)ICD-10: I73.9 ICD-9: 443.903/ctiveCoronary artery disease involving [place] coronary artery of [place] heart, angina presence unspecifiedICD-10: I25.10 ICD-9: 414.0102/ctiveInappropriate sexual behaviorICD-10: Z72.89 ICD-9: 312.8910/ctiveAnnual physical examICD-10: Z00.00 ICD-9: V70.009/ctivePre-op evaluationICD-10: Z01.818 ICD-9: V72.8403/ctiveSecondary hypertensionICD-10: I15.9 ICD-9: 405.9903ctiveDepressionICD-10: F32.9 ICD-9: 55714/2ResolvedDVT (deep venous thrombosis)ICD-10: I82.409 ICD-9: 453.40092ResolvedEncounter for immunizationICD-10: Z23 ICD-9: V03.89092ResolvedLong term (current) use of insulinICD-10: Z79.4 2ResolvedMuscular painICD-10: M79.10 ICD-9: 729.1092ResolvedHypertension associated with diabetesICD-10: E11.59 ICD-9: 250.8008/2ResolvedContact with and (suspected) exposure to covid-19 ICD-10: Z20.822 ICD-9: V01.7908/1ResolvedOther infective acute otitis externa of left ear ICD-10: H60.392 ICD-9: 380.1008esolvedScrotal skin lesionICD-10: N50.9 ICD-9: 608.908esolvedAnemia due to stage 3b chronic kidney diseaseICD- 10: N18.32 ICD-9: 285.2105esolvedChronic kidney disease, stage 3 unspecifiedICD- 10: N18.3004esolvedContact with and (suspected) exposure to other viral communicable diseasesICD-10: Z20.828 ICD-9: V01.79023447SjxijxniJcceccppHozgzws97/28/2020ActiveDiabetes mellitus Type 2Zqmoyej75/28/2020ActiveAnemia in chronic kidney diseaseICD-10: D63.1 02/12/2020ResolvedHyperlipidemia, unspecifiedICD-10: E78.Resolved Medications Medication Codes Instructions Start Date Stop Date Status Fill Instructions torsemide 20 mg tablet RxNorm: 036659 Take 1 Tablet(s) Oral QD 10/26/19 24 024 Inactive potassium chloride ER 20 mEq tablet,extended release RxNorm: 19800522 Take 2 Tablet(s) Oral BID 10/26/19 24 Inactive torsemide 20 mg tablet RxNorm: 202174 Take 1 Tablet(s) Oral QD 10/26/19 24 024 Active potassium chloride ER 20 mEq tablet,extended release RxNorm: 19800522 Take 2 Tablet(s) Oral BID 10/26/19 24 025 Active Artificial Tears (PF) 0.1 %-0.3 % drops in a dropperette RxNorm: 333619 Apply 1-2 Drop(s) Both eyes BID as needed 09/28/19 24 Active erythromycin 5 mg/gram (0.5 %) eye ointment RxNorm: 417568 Apply 1 Application Both eyes QHS every night at bedtime Instill ~1 cm ribbon into affected eye 09/28/19 24 Inactive Artificial Tears (PF) 0.1 %-0.3 % drops in a dropperette RxNorm: 319676 Apply 1-2 Drop(s) Both eyes BID as needed 09/28/19 24 024 Inactive erythromycin 5 mg/gram (0.5 %) eye ointment RxNorm: 888762 Apply 1 Application Both eyes QHS every night at bedtime Instill ~1 cm ribbon into affected eye 09/28/19 24 Inactive acetaminophen 500 mg tablet RxNorm: 136234 (MAX APAP:4GM/24HR) Take 1 Tablet(s) Oral TID as needed for pain 09/24/19 24 024 Inactive carvedilol 25 mg tablet RxNorm: 973419 Take 1 Tablet(s) Oral QD 09/08/19 24 No Stop Date Active pregabalin 100 mg capsule RxNorm: 381258 Take 1 Capsule(s) Oral QAM every morning 09/07/19 24 024 Active rosuvastatin 40 mg tablet RxNorm: 434541 Take 1 Tablet(s) Oral QPM every evening 07/13/19 24 No Stop Date Active ezetimibe 10 mg tablet RxNorm: 105866 Take 1 Tablet(s) Oral QD 07/13/19 24 No Stop Date Active bisacodyl 10 mg rectal suppository RxNorm: 858593 Insert 1 Suppository Rectal QD as needed 07/13/19 24 No Stop Date Active polyethylene glycol 3350 17 gram/dose oral powder RxNorm: 257863 Take 17 Gram(s) Oral BID as needed mix in 4-8ox water 07/13/19 24 No Stop Date Active ketoconazole 2 % shampoo RxNorm: 044251 Apply 1 Application Topical UD as directed 07/13/19 24 No Stop Date Active aripiprazole 15 mg tablet RxNorm: 955655 Take 1/2 Tablet(s) Oral QD 07/13/19 24 No Stop Date Active Ozempic 1 mg/dose (4 mg/3 mL) subcutaneous pen injector RxNorm: 5889608 Inject 1 Milligram(s) Subcutaneous QW once a week 07/13/19 24 No Stop Date Active Guaifenesin AC 10 mg-100 mg/5 mL oral liquid RxNorm: 853317 Take 10 Milliliter(s) Oral Q4H every four hours as needed 07/13/19 24 No Stop Date Active isosorbide mononitrate ER 60 mg tablet,extended release 24 hr RxNorm: 722632 Take 1 Tablet(s) Oral QD 07/13/19 24 No Stop Date Active ammonium lactate 12 % topical cream RxNorm: 267596 Apply 1 Application Topical BID 07/13/19 24 No Stop Date Active hydrocortisone 2.5 % topical cream RxNorm: 702775 Apply 1 Application Topical BID as needed 07/13/19 24 No Stop Date Active rosuvastatin 20 mg sprinkle capsule RxNorm: 8217195 Take 1 Capsule(s) Oral QD 07/13/19 24 No Stop Date Active Vascepa 1 gram capsule RxNorm: 0297236 Take 2 Capsule(s) Oral BID 07/13/19 24 No Stop Date Active venlafaxine ER 75 mg capsule,extended release 24 hr RxNorm: 951089 Take 3 Capsule(s) Oral QD 07/13/19 24 No Stop Date Active Basaglar KwikPen U-100 Insulin 100 unit/mL (3 mL) subcutaneous RxNorm: 3484222 Inject 30U SubQ twice daily 07/07/19 24 025 Active Please dispense one month supply. Basaglar KwikPen U-100 Insulin 100 unit/mL (3 mL) subcutaneous RxNorm: 1267253 Inject 30U SubQ twice daily 07/07/19 24 024 Inactive Please dispense one month supply. pregabalin 150 mg capsule RxNorm: 040831 Take 1 Capsule(s) Oral QHS every night at bedtime 07/05/19 24 024 Active pregabalin 150 mg capsule RxNorm: 289439 Take 1 Capsule(s) Oral QHS every night at bedtime 07/05/19 24 024 Inactive polyethylene glycol 3350 17 gram/dose oral powder RxNorm: 351129 Take 1 Packet Oral QD as needed (1 packet = 17g) mix with 4-8oz of liquid 06/15/19 24 024 Inactive bisacodyl 10 mg rectal suppository RxNorm: 786286 Insert one suppository per rectum once daily as needed for constipation 06/15/19 24 024 Inactive bisacodyl 10 mg rectal suppository RxNorm: 994606 Insert one suppository per rectum once daily as needed for constipation 06/15/19 24 024 Inactive pregabalin 100 mg capsule RxNorm: 474134 Take 1 Capsule(s) Oral QAM every morning 04/27/20 024 Inactive Levemir FlexPen 100 unit/mL (3 mL) solution subcutaneous insulin pen RxNorm: 402510 Inject 30 Unit(s) Subcutaneous BID 04/27/20 23 024 Inactive rosuvastatin 40 mg tablet RxNorm: 190039 Take 1 Tablet(s) Oral QPM every evening 04/16/20 024 Inactive D/C rosuvastatin 20mg venlafaxine ER 75 mg capsule,extended release 24 hr RxNorm: 447386 Take 3 Capsule(s) Oral QD 04/14/20 023 Inactive pregabalin 100 mg capsule RxNorm: 483056 Take 1 Capsule(s) Oral QAM every morning [...] meter clotrimazole 1 % topical cream RxNorm: 118312 Take apply topically to abdominal folds twice daily for 14 days 03/12/20 024 Inactive Ozempic 1 mg/dose (4 mg/3 mL) subcutaneous pen injector RxNorm: 2317253 Inject 1 Milligram(s) Subcutaneous QW once a week 03/11/20 023 Inactive rosuvastatin 20 mg tablet RxNorm: 306354 Take 1 Tablet(s) Oral QD 02/26/20 023 Inactive d/c pravastatin 80mg Ozempic 1 mg/dose (4 mg/3 mL) subcutaneous pen injector RxNorm: 8861728 Inject 1 Milligram(s) Subcutaneous QW once a week 02/20/20 023 Inactive pregabalin 150 mg capsule RxNorm: 352699 Take 1 Capsule(s) Oral HS at bed time 02/19/20 23 023 Inactive pregabalin 100 mg capsule RxNorm: 055810 Take 1 Capsule(s) Oral QAM every morning 02/18/20 23 023 Inactive venlafaxine ER 75 mg capsule,extended release 24 hr RxNorm: 317035 Take 3 Capsule(s) Oral QD 02/04/20 23 023 Inactive FreeStyle Chema 2 Sensor kit RxNorm: use as directed 02/04/20 23 023 Inactive FreeStyle Chema 2 Sensor kit RxNorm: use as directed 02/04/20 23 024 Inactive fluconazole 150 mg tablet RxNorm: 016921 Take 1 Tablet(s) Oral on day 3 and on day 6 02/03/20 23 024 Active chlorthalidone 25 mg tablet RxNorm: 443433 Take 1 Tablet(s) Oral QAM every morning 02/03/20 23 No Stop Date Active venlafaxine ER 150 mg capsule,extended release 24 hr RxNorm: 686162 Take 1 Capsule(s) Oral QD 02/03/20 023 Inactive acetaminophen 500 mg tablet RxNorm: 326024 1 TABLET ORALLY 3 TIMES DAILY (MAX APAP:4GM/24HR) 12/15/19 23 023 Inactive clotrimazole 1 % topical cream RxNorm: 782870 apply 1g topically to top of feet and in between toes BID 12/09/19 23 023 Inactive potassium chloride ER 20 mEq tablet,extended release RxNorm: 171702 Take 1 Tablet(s) Oral BID 12/09/19 23 024 Inactive d/c 20mEq once daily (sent from hospital) nystatin 100,000 unit/gram topical powder RxNorm: 678640 APPLY TO AFFECTED AREAS TOPICALLY 2 TIMES DAILY 11/21/19 23 024 Inactive Nystop 100,000 unit/gram topical powder RxNorm: 612735 Apply to abd folds, under breasts and L side of groin Topical BID x 14 days, then BID PRN 11/20/19 23 023 Inactive dx: yeast dermatitis Bengay Ultra Strength 4 %-30 %-10 % topical cream RxNorm: 568669 Apply 1 Gram(s) Topical QID PRN to feet and legs for neuropathic pain 11/11/19 024 Active clotrimazole 1 % topical cream RxNorm: 501869 Apply 1/2 Gram(s) Topical BID Apply to affected areas of groin, periarea, and abdominal topically 2 times daily 11/10/19 023 Inactive hydrocortisone 2.5 % topical cream RxNorm: 685851 Apply 1/2 Gram(s) Topical BID as needed 11/10/19 024 Inactive Humulin R U-500 (Concentrated) Insulin 500 unit/mL subcutaneous soln RxNorm: 338935 Inject 100 Unit(s) Subcutaneous TID 10/07/19 024 Inactive Levemir FlexPen 100 unit/mL (3 mL) solution subcutaneous insulin pen RxNorm: 435227 Inject 30 Unit(s) Subcutaneous BID 10/07/19 023 Inactive Ozempic 0.25 mg or 0.5 mg (2 mg/3 mL) subcutaneous pen injector RxNorm: 1614937 Inject 1/2 Milligram(s) Subcutaneous QW once a week 10/07/19 024 Inactive aripiprazole 15 mg tablet RxNorm: 843311 1/2 TAB (7.5MG) ORALLY DAILY (DX:MAJOR DEPRESSIVE DISORDER) 09/23/19 023 Inactive Lancets,Thin 28 gauge RxNorm: Use 1 as directed QID 09/15/19 23 024 Inactive Accu-Chek Guide test strips RxNorm: Use 1 Test Strip QID 09/15/19 023 Inactive ok to substitute with any covered alternative test strip torsemide 20 mg tablet RxNorm: 330936 Take 1 Tablet(s) Oral BID 09/09/19 024 Inactive d/c once daily dosing carvedilol 25 mg tablet RxNorm: 243332 Take 1 Tablet(s) Oral QD 08/25/19 23 024 Inactive pregabalin 150 mg capsule RxNorm: 853203 1 Capsule(s) Oral HS at bed time 08/18/19 023 Inactive pregabalin 100 mg capsule RxNorm: 175696 1 Capsule(s) Oral QAM every morning 08/18/19 23 023 Inactive carvedilol 25 mg tablet RxNorm: 542170 1 Tablet(s) Oral QD 07/28/19 23 023 Inactive lisinopril 20 mg tablet RxNorm: 337434 Give 1 Tablet(s) Oral QD 07/28/19 023 Inactive Lyrica 150 mg capsule RxNorm: 766807 Take 1 Capsule(s) Oral QHS every night at bedtime 07/19/19 023 Inactive d/c 100mg dose Diflucan 150 mg tablet RxNorm: 811061 Take 1 Tablet(s) Oral QD repeat on day 3 and 6 07/19/19 023 Inactive pregabalin 100 mg capsule RxNorm: 811076 Take 1 Capsule(s) Oral QAM every morning 07/19/19 023 Inactive gatifloxacin 0.5 % eye drops RxNorm: 501575 Instill 1 Drop(s) as directed TID Instill 1 drop in to affected eye(s) starting 1 day prior to surgery and continue until gone (do not exceed 4 weeks). 07/13/19 023 Inactive carvedilol 25 mg tablet RxNorm: 419283 2 Tablet(s) Oral BID 07/13/19 023 Inactive Humulin R Regular U-100 Insulin 100 unit/mL injection solution RxNorm: 925864 85 Unit(s) Injection TID 07/13/19 23 023 Inactive ketorolac 0.5 % eye drops RxNorm: 280510 Instill 1 Drop(s) as directed QID Instill 1 drop into affected eye(s) 4 times daily starting 1 day prior to surgery and continue until gone (do not exceed 4 weeks). 07/13/19 23 023 Inactive Diflucan 150 mg tablet RxNorm: 561918 Take 1 Tablet(s) Oral QD repeat on day 3 and 6 06/30/19 23 023 Inactive Accu-Chek Guide test strips RxNorm: Use 1 Test Strip QID Use 1 test strip to monitor blood glucose 4 times daily and as needed. Dx:E11.42. 06/23/19 023 Inactive ok to substitute with any covered alternative test strip dextromethorphan-gu aifenesin 10 mg-100 mg/5 mL oral liquid RxNorm: 553228 Take 10 Milliliter(s) Oral every 4 hours as needed for cough 06/19/19 023 Inactive dextromethorphan-gu aifenesin 10 mg-100 mg/5 mL oral liquid RxNorm: 142323 Take 10 Milliliter(s) Oral every 4 hours as needed for cough 06/19/19 023 Inactive Lyrica 150 mg capsule RxNorm: 484127 Take 1 Capsule(s) Oral QHS every night at bedtime 06/18/19 023 Inactive d/c 100mg dose aripiprazole 15 mg tablet RxNorm: 584898 1/2 TAB (7.5MG) ORALLY DAILY (DX:MAJOR DEPRESSIVE DISORDER) 06/05/19 023 Inactive pregabalin 100 mg capsule RxNorm: 414296 1 Capsule(s) Oral QAM every morning 06/02/19 023 Inactive Banophen 50 mg capsule RxNorm: 7314017 Take 1 Capsule(s) Oral Q6H every 6 hours as needed 05/19/19 23 No Stop Date Active Novolog Flexpen U-100 Insulin aspart 100 unit/mL (3 mL) subcutaneous RxNorm: 8027110 Inject 10 Unit(s) Subcutaneous QHS every night at bedtime with nighttime snack 04/08/20 22 022 Inactive Novolog Flexpen U-100 Insulin aspart 100 unit/mL (3 mL) subcutaneous RxNorm: 0931137 Inject 42 Unit(s) Subcutaneous TID in addition to sliding scale 04/08/20 022 Inactive d/c 36u albuterol sulfate HFA 90 mcg/actuation aerosol inhaler RxNorm: 3108034 Take 2 Puff(s) Inhalation Q4H every four hours as needed as needed for SOB, cough, or wheezing 04/07/20 22 030 Active Banophen 50 mg capsule RxNorm: 4519223 Take 1 Capsule(s) Oral Q6H every 6 hours as needed 04/06/20 023 Inactive diphenhydramine 50 mg tablet RxNorm: 6106669 Take 1 Tablet(s) Oral Q6H every 6 hours as needed 04/06/20 22 022 Inactive diphenhydramine 50 mg tablet RxNorm: 3429026 1 Tablet(s) Oral Q6H every 6 hours as needed 04/06/20 22 022 Inactive Abilify 15 mg tablet RxNorm: 695878 1/2 Tablet(s) Oral QD 03/10/20 023 Inactive Shingrix (PF) 50 mcg/0.5 mL intramuscular suspension, kit RxNorm: 4445439 Administer 1/2 Milliliter(s) Intramuscular QD one time shingrix step 2 ( step 1 given 11/04/21) WITH needle - Nursing please administer upon arrival and once administered post a bridge message with date of administration, technology recruiter, expiration date, and lot# so we can update [facility] 02/18/20 22 022 Inactive dispense with needle Shingrix (PF) 50 mcg/0.5 mL intramuscular suspension, kit RxNorm: 0938498 Administer 1/2 Milliliter(s) Intramuscular QD one time shingrix step 2 ( step 1 given 11/04/21) WITH needle - Nursing please administer upon arrival and once administered post a bridge message with date of administration, technology recruiter, expiration date, and lot# so we can update [facility] 02/18/20 22 022 Inactive dispense with needle polyethylene glycol 3350 17 gram/dose oral powder RxNorm: 637134 Take 17=1 capful Gram(s) Oral QD mix with 4-8oz of liquid 01/08/20 22 023 Inactive take this in addition to BID prn order Lyrica 100 mg capsule RxNorm: 218330 Take 1 Capsule(s) Oral QAM every morning 01/08/20 22 022 Inactive d/c 50mg dose acetaminophen 500 mg tablet RxNorm: 745780 Take 1 Tablet(s) Oral TID 01/08/20 22 022 Inactive d/c PRN order Lyrica 150 mg capsule RxNorm: 473403 Take 1 Capsule(s) Oral QHS every night at bedtime 01/08/20 22 023 Inactive d/c 100mg dose Abilify 5 mg tablet RxNorm: 199601 Take 1 Tablet(s) Oral QD take 1 tab po QD #30 refill 5 dx: MDD 12/12/19 22 022 Inactive Abilify 5 mg tablet RxNorm: 397605 Take 1 Tablet(s) Oral QD take 1 tab po QD #30 refill 5 dx: MDD 12/12/19 22 022 Inactive Novolog Flexpen U-100 Insulin aspart 100 unit/mL (3 mL) subcutaneous RxNorm: 5342608 Inject 42 Unit(s) Subcutaneous TID in addition to sliding scale 12/10/19 22 022 Inactive d/c 36u chlorthalidone 25 mg tablet RxNorm: 201178 Take 1 Tablet(s) Oral QAM every morning 12/10/19 22 023 Inactive pregabalin 50 mg capsule RxNorm: 186764 Take 1 Capsule(s) Oral QAM every morning 11/12/19 22 022 Inactive tetanus-diphtheria toxoids-Td 2 Lf unit-2 Lf unit/0.5 mL IM suspension RxNorm: 139 Take 0.5 Miscellaneous Intramuscular 11/12/19 22 022 Inactive need tdap - nursing to administer upon arrival pregabalin 50 mg capsule RxNorm: 261273 Take 1 Capsule(s) Oral QAM every morning 10/16/19 22 022 Inactive pregabalin 50 mg capsule RxNorm: 214618 Take 1 Capsule(s) Oral QAM every morning 10/16/19 22 022 Inactive pregabalin 50 mg capsule RxNorm: 694706 1 Capsule(s) Oral QAM every morning 10/15/19 22 022 Inactive Shingrix (PF) 50 mcg/0.5 mL intramuscular suspension, kit RxNorm: 1087364 Administer 1/2 Milliliter(s) Intramuscular one time Nursing please administer upon arrival and once administered post a bridge message with date of administration, technology recruiter, expiration date, and lot# so we can update [facility]. 10/09/19 22 022 Inactive shingrix step 1 Shingrix (PF) 50 mcg/0.5 mL intramuscular suspension, kit RxNorm: 9751372 Administer 1/2 Milliliter(s) Intramuscular one time Nursing please administer upon arrival and once administered post a bridge message with date of administration, technology recruiter, expiration date, and lot# so we can update [facility]. 10/09/19 22 022 Inactive shingrix step 1 cholecalciferol (vitamin D3) 1,250 mcg (50,000 unit) capsule RxNorm: 708619 Take 1 Capsule(s) Oral QW once a [...] aspart 100 unit/mL (3 mL) subcutaneous RxNorm: 4353189 Inject 10 Unit(s) Subcutaneous QHS every night at bedtime with nighttime snack 10/08/19 22 Inactive Shingrix (PF) 50 mcg/0.5 mL intramuscular suspension, kit RxNorm: 3546505 ADMINISTER 2-DOSE SERIES PER CDC GUIDELINES 10/08/19 22 022 Active Shingrix (PF) 50 mcg/0.5 mL intramuscular suspension, kit RxNorm: 0684540 ADMINISTER 2-DOSE SERIES PER CDC GUIDELINES 10/08/19 22 022 Inactive Novolog Flexpen U-100 Insulin aspart 100 unit/mL (3 mL) subcutaneous RxNorm: 3325129 Inject 36 Unit(s) Subcutaneous TID in addition to sliding scale 10/08/19 22 022 Inactive Novofine Autocover 30 gauge x 1/3 needle RxNorm: Use 1 Miscellaneous UD as directed Use 1 needle as directed to administer insulin 5 times a day Dx:E11.42. 10/03/19 22 022 Inactive ok to substitute with any covered alternative pen needle benzoyl peroxide 10 % topical cleanser RxNorm: 990000 Apply 1 Application Topical QD apply to face, wash rinse and dry once daily (may change to QOD if drying) 08/19/19 22 022 Inactive (%covered by insurance) #60ml refill 11 dx: acne benzoyl peroxide 10 % topical cleanser RxNorm: 939108 Apply 1 Application Topical QD apply to face, wash rinse and dry once daily (may change to QOD if drying) 08/19/19 22 022 Inactive (%covered by insurance) #60ml refill 11 dx: acne benzoyl peroxide 10 % topical cleanser RxNorm: 069042 Apply 1 Application Topical QD apply to face, wash rinse and dry once daily (may change to QOD if drying) 08/19/19 022 Inactive (%covered by insurance) #60ml refill 11 dx: acne Lyrica 50 mg capsule RxNorm: 518611 Take 1 Capsule(s) Oral QAM every morning Take 1 capsule by mouth once daily 08/19/19 22 022 Inactive benzoyl peroxide 10 % topical cleanser RxNorm: 056709 Apply 1 Application Topical QD apply to face, wash rinse and dry once daily (may change to QOD if drying) 08/19/19 22 022 Inactive (%covered by insurance) #60ml refill 11 dx: acne Lyrica 100 mg capsule RxNorm: 353368 Take 1 Capsule(s) Oral QHS every night at bedtime Take 1 capsule by mouth once daily at bedtime 08/19/19 22 022 Inactive Lyrica 100 mg capsule RxNorm: 940816 Take 1 Capsule(s) Oral QHS every night at bedtime Take 1 capsule by mouth once daily at bedtime 08/16/19 22 022 Inactive Lyrica 50 mg capsule RxNorm: 231383 Take 1 Capsule(s) Oral QAM every morning Take 1 capsule by mouth once daily 08/16/19 22 022 Inactive Levemir FlexTouch U-100 Insulin 100 unit/mL (3 mL) subcutaneous pen RxNorm: 625183 Inject 86 Unit(s) Subcutaneous BID 08/05/19 22 022 Inactive d/c 83units BID Lyrica 100 mg capsule RxNorm: 039706 Take 1 Capsule(s) Oral QHS every night at bedtime Take 1 capsule by mouth once daily at bedtime 07/14/19 22 022 Inactive Lyrica 50 mg capsule RxNorm: 377670 Take 1 Capsule(s) Oral QAM every morning Take 1 capsule by mouth once daily 07/14/19 22 022 Inactive Levemir FlexTouch U-100 Insulin 100 unit/mL (3 mL) subcutaneous pen RxNorm: 567621 Inject 83 Unit(s) Subcutaneous BID 07/08/19 22 [...] test strip hydralazine 50 mg tablet RxNorm: 982015 Take 1 Tablet(s) Oral QID 05/05/20 21 022 Inactive venlafaxine ER 225 mg tablet,extended release 24 hr RxNorm: 139221 Take 1 Tablet(s) Oral QD 05/05/20 Inactive venlafaxine ER 225 mg tablet,extended release 24 hr RxNorm: 961804 Take 1 Tablet(s) Oral QD 05/05/20 022 Inactive isosorbide mononitrate ER 30 mg tablet,extended release 24 hr RxNorm: 839320 Take 1 Tablet(s) Oral QD 05/05/20 024 Inactive hydralazine 50 mg tablet RxNorm: 092221 Take 1 Tablet(s) Oral QID 05/05/20 21 Inactive aspirin 81 mg tablet,delayed release RxNorm: 827253 Take 1 Tablet(s) Oral QD 03/31/20 022 Inactive Vitamin D2 1,250 mcg (50,000 unit) capsule RxNorm: 7453001 Take 1 Capsule(s) Oral QW once a week x 12 weeks 03/31/20 022 Inactive Vitamin D2 1,250 mcg (50,000 unit) capsule RxNorm: 4071987 Take 1 Capsule(s) Oral QW once a week 03/31/20 Inactive Zetia 10 mg tablet RxNorm: 608245 Take 1 Tablet(s) Oral QD 03/31/20 024 Inactive Zetia 10 mg tablet RxNorm: 922230 Take 1 Tablet(s) Oral QD 03/31/20 21 021 Inactive hydralazine 25 mg tablet RxNorm: 847147 Take 1 Tablet(s) Oral QID 11/15/ 021 Inactive hydralazine 25 mg tablet RxNorm: 087768 Take 1 Tablet(s) Oral QID 03/31/20 021 Inactive hydralazine 10 mg tablet RxNorm: 189767 Take 1 Tablet(s) Oral QID 03/03/20 021 Inactive cephalexin 500 mg tablet RxNorm: 810249 Take 1 Tablet(s) Oral QID 02/27/20 021 Inactive cephalexin 500 mg tablet RxNorm: 184354 Take 1 Tablet(s) Oral QID 02/27/20 021 Inactive lisinopril 40 mg tablet RxNorm: 389040 Take 1 Tablet(s) Oral QD 02/11/20 023 Inactive Eliquis 5 mg tablet RxNorm: 6655466 Take 1 Tablet(s) Oral BID 01/05/20 022 Inactive Eliquis 5 mg tablet RxNorm: 9866764 Take 2 Tablet(s) Oral QD 01/01/20 21 021 Inactive Lyrica 50 mg capsule RxNorm: 489715 Take 1 Capsule(s) Oral QAM every morning 12/24/19 021 Inactive Lyrica 100 mg capsule RxNorm: 901532 Take 1 Capsule(s) Oral QHS every night at bedtime 12/24/19 021 Inactive clotrimazole 1 % topical cream RxNorm: 310116 Apply to right foot and toes Topical BID 12/04/19 21 023 Inactive metoprolol succinate ER 200 mg tablet,extended release 24 hr RxNorm: 758158 Take 1 Tablet(s) Oral QD 12/04/19 023 Inactive ciprofloxacin 500 mg tablet RxNorm: 673546 Take 1 Tablet(s) Oral QD 11/30/19 021 Inactive DX ofloxacin otic drops Accu-Chek Guide test strips RxNorm: USE 1 TO CHECK GLUCOSE 4 TIMES DAILY AND NEEDED 11/15/19 21 023 Inactive Blood Glucose Test strips RxNorm: Use 1 Test Strip QID at PRN 11/05/19 21 023 Inactive E11.42 lisinopril 30 mg tablet RxNorm: 628347 Take 1 Tablet(s) Oral QD 10/30/19 21 021 Inactive lisinopril 20 mg tablet RxNorm: 132942 Take 1 Tablet(s) Oral QD 10/23/19 21 021 Inactive lisinopril 20 mg tablet RxNorm: 442006 Take 1 Tablet(s) Oral QD 10/23/19 21 021 Inactive lisinopril 10 mg tablet RxNorm: 223329 Take 1 Tablet(s) Oral QD 10/02/19 21 021 Inactive icosapent ethyl 1 gram capsule RxNorm: 3839729 Take 2 Capsule(s) (2 gm) Oral BID with meals 09/12/19 21 024 Inactive Okay to dispense one 2gm tab if you have that available. icosapent ethyl 1 gram capsule RxNorm: 7849137 Take 2 Capsule(s) Oral BID 09/12/19 021 Inactive Okay to dispense one 2gm tab if you have that available. amlodipine 10 mg tablet RxNorm: 810151 Take 1 Tablet(s) Oral QD 09/04/19 21 022 Inactive aspirin 81 mg tablet,delayed release RxNorm: 859117 Take 1 Tablet(s) Oral QD 09/04/19 21 021 Inactive Levemir FlexTouch U-100 Insulin 100 unit/mL (3 mL) subcutaneous pen RxNorm: 933225 Inject 150 Unit(s) Subcutaneous BID 09/04/19 21 022 Inactive venlafaxine ER 150 mg tablet,extended release 24 hr RxNorm: 658805 Take 1 Tablet(s) Oral QD 09/04/19 21 021 Inactive clotrimazole-betame thasone 1 %-0.05 % topical cream RxNorm: 900081 Apply to rash on red area on left abdomen/chest Topical BID 08/10/19 21 021 Inactive amlodipine 5 mg tablet RxNorm: 381983 Take 1 Tablet(s) Oral QD 07/31/19 21 021 Inactive cephalexin 500 mg tablet RxNorm: 396311 Take 1 Tablet(s) Oral BID BID - Twice Daily 07/31/19 21 021 Inactive Start 08/01/20 pantoprazole 40 mg tablet,delayed release RxNorm: 774621 Take 1 Tablet(s) Oral QAM every morning 07/08/19 Inactive senna 8.6 mg tablet RxNorm: 100037 Take 1 Tablet(s) Oral QD 07/08/19 Inactive carbamazepine 200 mg tablet RxNorm: 741607 Take 1 Tablet(s) Oral BID 07/08/19 022 Inactive clopidogrel 75 mg tablet RxNorm: 498468 Take 1 Tablet(s) Oral QD 07/08/19 021 Inactive Blood Glucose Test strips RxNorm: Use 1 Test Strip QID at PRN 07/08/19 Inactive E11.42 Novolog Flexpen U-100 Insulin aspart 100 unit/mL (3 mL) subcutaneous RxNorm: 5635157 Administer per sliding scale Milliliter(s) Subcutaneous TID 151-200: 10 u; 201-250: 20 u; 251-300: 30 u; 301-350: 40 u; 351-400: 50 u. 07/08/19 022 Inactive lisinopril 5 mg tablet RxNorm: 656439 Take 1 Tablet(s) Oral QD 07/08/19 021 Inactive Novolog Flexpen U-100 Insulin aspart 100 unit/mL (3 mL) subcutaneous RxNorm: 8319630 Inject 85 Unit(s) Subcutaneous TID 07/08/19 022 Inactive pravastatin 80 mg tablet RxNorm: 004934 Take 1 Tablet(s) Oral QHS every night at bedtime 07/08/19 023 Inactive clotrimazole 1 % topical cream RxNorm: 035119 Apply to bilateral groin areas Topical BID 07/08/19 21 022 Inactive metoprolol succinate ER 200 mg tablet,extended release 24 hr RxNorm: 189824 Take 1 Tablet(s) Oral QD 07/08/19 021 Inactive Vitamin D3 25 mcg (1,000 unit) tablet RxNorm: 199727 Take 1 Tablet(s) Oral QD 07/08/19 021 Inactive isosorbide dinitrate 30 mg tablet RxNorm: 487731 Take 1 Tablet(s) Oral QD 07/08/19 021 Inactive Levemir FlexTouch U-100 Insulin 100 unit/mL (3 mL) subcutaneous pen RxNorm: 523999 Inject 140 Unit(s) Subcutaneous BID 07/08/19 021 Inactive torsemide 20 mg tablet RxNorm: 692514 Take 1 Tablet(s) Oral QD 07/08/19 023 Inactive venlafaxine 75 mg tablet RxNorm: 875352 Take 1 Tablet(s) Oral QD 07/08/19 021 Inactive acetaminophen 500 mg tablet RxNorm: 978687 Take 1 Tablet(s) Oral TID as needed for headache 06/18/19 021 Inactive acetaminophen 500 mg tablet RxNorm: 315350 Take 1 Tablet(s) Oral TID as needed for headache 06/18/19 021 Inactive Lyrica 100 mg capsule RxNorm: 842857 Take 1 Capsule(s) Oral QHS every night at bedtime 06/11/19 021 Inactive Lyrica 50 mg capsule RxNorm: 132205 Take 1 Capsule(s) Oral QAM every morning 06/10/19 21 021 Inactive hydrocortisone 2.5 % topical cream RxNorm: 161493 Apply to bilateral groin creases Topical BID 05/15/20 20 021 Inactive clotrimazole 1 % topical cream RxNorm: 073714 Apply to bilateral groin areas Topical BID 05/15/20 20 021 Inactive Lyrica 50 mg capsule RxNorm: 149426 Take 1 Capsule(s) Oral QAM every morning 05/14/20 20 020 Inactive Lyrica 100 mg capsule RxNorm: 387754 Take 1 Capsule(s) Oral QHS every night [...] Inactive Nystop 100,000 unit/gram topical powder RxNorm: 460826 Apply to abd folds, under breasts and L side of groin Topical BID x 14 days, then BID PRN 04/08/20 20 Inactive dx: yeast dermatitis Lyrica 100 mg capsule RxNorm: 531508 Take 1 Capsule(s) Oral QHS every night at bedtime 03/13/20 20 Inactive Lyrica 50 mg capsule RxNorm: 345308 Take 1 Capsule(s) Oral QAM every morning 03/13/20 20 Inactive ketoconazole 2 % shampoo RxNorm: 675438 Apply Topical two times a week with showers 03/11/20 20 024 Inactive cholecalciferol (vitamin D3) 50 mcg (2,000 unit) tablet RxNorm: 322853 Take 1 Tablet(s) Oral QD 03/11/20 20 021 Inactive Zetia 10 mg tablet RxNorm: 492125 Take 1 Tablet(s) Oral QD 03/07/20 20 021 Inactive Zetia 10 mg tablet RxNorm: 072567 Take 1 Tablet(s) Oral QD 03/07/20 20 020 Inactive Lyrica 50 mg capsule RxNorm: 883343 Take 1 Capsule(s) Oral QAM every morning 02/15/20 20 Inactive Lyrica 100 mg capsule RxNorm: 624856 Take 1 Capsule(s) Oral QHS every night at bedtime 02/15/20 Inactive Lyrica 100 mg capsule RxNorm: 780392 Take 1 Capsule(s) Oral QHS every night at bedtime 02/15/20 20 Inactive Lyrica 50 mg capsule RxNorm: 559162 Take 1 Capsule(s) Oral QAM every morning 02/15/20 Inactive metoprolol succinate ER 200 mg tablet,extended release 24 hr RxNorm: 255972 Take 1 Tablet(s) Oral QD 08/11 Activeloperamide 2 mg capsuleRxNorm: 997829Wjkx 1 Capsule(s) Oral QID as needed 06/12/2021ctivehydralazine 50 mg tabletRxNorm: 052075Cvqt 1 Tablet(s) Oral QID 08/11/2022ctivevenlafaxine ER 75 mg capsule,extended release 24 hrRxNorm: 776817Fmsc 3 Capsule(s) Oral QD/Inactivepolyethylene glycol 3350 17 gram/dose oral powderRxNorm: 981405Vkit 17=1 capful Gram(s) Oral BID as needed mix with 4-8oz of /27//Inactiveicosapent ethyl 1 gram capsuleRxNorm: 9911307Gadx 2 Capsule(s) (2 gm) Oral BID with meals /InactiveOkay to dispense one 2gm tab if you have that available.Levemir FlexTouch U-100 Insulin 100 unit/mL (3 mL) subcutaneous pen RxNorm: 776622Jyuggb 80 Unit(s) Subcutaneous BID/Inactive Novolog Flexpen U-100 Insulin aspart 100 unit/mL (3 mL) subcutaneousRxNorm: 6882469Uityaz 30 Unit(s) Subcutaneous TID with meals/Inactive Medication Administered No Medication Administered data Reason For Visit No Reason For Visit data Plan of Care Planned Activity Notes Codes Status Date Patient Education: Patient Medication Summary Vpuwardtz97/11/2024are Plan: BMP (Basic Metabolic Panel) (8)Zziulyz4110/26/2023 Appointment: Sandra Clark WPtel: [address] [facility] [address] [id number] [facility] Psych Follow Up12/09/2022ppointment: Yola Shirleyy WPtel: [address] [facility] [address] [id number] USTCM10/26/2022Referral: [facility] WPtel: [phone] , [address] [id number] USReferralRecords Dushnkop22/08/2023ppointment: Tapan Shirley WPtel: [address] [facility] [address] [id number] [place]/U008/11/2022ppointment: Tapan Shirley WPtel: [address] [facility] [address] [id number] USF/U007/14/2022ppointment: Tapan Shirley WPtel: [address] [facility] [address] [id number] [place]/2Referral: [facility] WPtel: [phone] [id number] DPPiwukpxxIglflrcpe78/12/2022Referral: General CardiologyReferralCompleted 1Referral: General PsychologistReferralClosedReferral: General PsychiatristReferralPatient/Family [...] Sister Jyotsna involved in his care cell# [phone] Guardian: Giulia (tapan met in person 09/01/21), now has Lexii (same group as giulia)Lab Schedule: /September*September (CBC with diff, CMP, A1c) (Novemebr: CBC, CMP, A1c, Lipids, VitD) 10/08/2023
--- OUTSIDE RECORDS SUMMARY | 2023-11-03 10:28 | XMS_ITS | CCD ---
Author Name Cecilio Durham ie Address [address] [place] [address] Phone Organization [facility] Phone Care Team Providers Care Undercoater Name Role Phone Arpit MARCYKeeganHarrison Primary Care Provider Leona vailable Harrison [facility] U navailable Summary Purpose DataExchange Insurance Providers Payer name Policy type / Coverage type Covered democrat ID Effective Begin Date Effective End Date Medicare [place] Medicare Part B [id number] Unknown Unknown [place] Medicare Part B [id number] Unknown Unknown Family history Sister Brittany Suggs [...] Nursing Home 09/03/[address]: 9958396 Non-Smoker / No History of Smoking 09/02/[address]: 287224473 No Alcohol Consum ption 09/02/2020 Allergies, Adverse Reactions, Alerts Substance Reaction Codes Entered Date Inactivated Date Status * NO KNOWN FOOD ALLERGIES Vjpkyoq9807/13/2023No Inactive DateActiveLISINOPRILRxNorm: 0843858No Inactive DateActiveMetformin RVwKmcuwjy21/28/2020No Inactive DateActive* NO KNOWN ENVIRONMENTAL [id number]/27/2024No Inactive DateActive Problems Condition Codes Effective Dates Condition St atus BMI 60.0-69.9, adult ICD-10: Z68.44 ICD-9: V85.4405/ctiveCandidal intertrigoICD-10: B37.2 ICD-9: 112.305/ctiveHistory of anemia due to CKDICD-10: N18.9 ICD-9: 585.905/ctiveLearning disabilityICD-10: F81.9 ICD-9: 315.205ctiveParaparesis of both lower limbsICD-10: G82.20 ICD-9: 344.105/ctiveReducible umbilical herniaICD-10: K42.9 ICD-9: 553.105ctiveSeizure disorderICD-10: G40.909 ICD-9: 345.9005/ctiveCallus of heelICD-10: L84 ICD-9: 84565/esolvedGout due to renal impairmentICD-10: M10.30 ICD-9: 274.1005esolvedHyperhidrosis of palmsICD-10: L74.512 ICD-9: 705.21010/12/2023esolvedHyperlipidemia, unspecifiedICD-10: E78.5 ICD-9: 272.405esolvedHypokalemiaICD-10: E87.6 ICD-9: 276.805esolvedOther retail coverage merchandiser (current) drug therapyICD-10: Z79.899 ICD-9: V58.6905esolvedPain of [...] H61.22 ICD-9: 380.404/4ResolvedShortness of breathICD-10: R06.02 ICD-9: 786.05044ResolvedSkin tagICD-10: L91.8 ICD-9: 701.9044ResolvedLower extremity edemaICD-10: R60.0 ICD-9: 782.303/4ActiveMajor depression, recurrentICD-10: F33.9 ICD-9: 296.3003/ctivePVD (peripheral vascular disease)ICD-10: I73.9 ICD-9: 443.903/ctiveCoronary artery disease involving absentee-shawnee coronary artery of absentee-shawnee heart, angina presence unspecifiedICD-10: I25.10 ICD-9: 414.0102/ctiveInappropriate sexual behaviorICD-10: Z72.89 ICD-9: 312.8910/ctiveAnnual physical examICD-10: Z00.00 ICD-9: V70.009/ctivePre-op evaluationICD-10: Z01.818 ICD-9: V72.8403/ctiveSecondary hypertensionICD-10: I15.9 ICD-9: 405.9903ctiveDepressionICD-10: F32.9 ICD-9: 35631/2ResolvedDVT (deep venous thrombosis)ICD-10: I82.409 ICD-9: 453.4009esolvedEncounter for [...] 285.2105esolvedChronic kidney disease, stage 3 unspecifiedICD- 10: N18.30009/03/2020esolvedContact with and (suspected) exposure to other viral communicable diseasesICD-10: Z20.828 ICD-9: V01.79023396ByahzrctHdlzndzlDgilrxp00/28/2020ActiveDiabetes mellitus Type 7Ottdbcw45/28/2020ActiveAnemia in chronic kidney diseaseICD-10: D63.1 02/12/2020ResolvedHyperlipidemia, unspecifiedICD-10: E78.Resolved Medications Medication Codes Instructions Start Date Stop Date Status Fill Instructions Artificial Tears (PF) 0.1 %-0.3 % drops in a dropperette RxNorm: 315666 Apply 1-2 Drop(s) Both eyes BID as needed 09/28/19 24 025 Active erythromycin 5 mg/gram (0.5 %) eye ointment RxNorm: 577040 Apply 1 Application Both eyes QHS every night at bedtime Instill ~1 cm ribbon into affected eye 09/28/19 24 024 Inactive Artificial Tears (PF) 0.1 %-0.3 % drops in a dropperette RxNorm: 368877 Apply 1-2 Drop(s) Both eyes BID as needed 09/28/19 24 024 Inactive erythromycin 5 mg/gram (0.5 %) eye ointment RxNorm: 960069 Apply 1 Application Both eyes QHS every night at bedtime Instill ~1 cm ribbon into affected eye 09/28/19 24 024 Inactive acetaminophen 500 mg tablet RxNorm: 123026 (MAX APAP:4GM/24HR) Take 1 Tablet(s) Oral TID as needed for pain 09/24/19 24 024 Inactive carvedilol 25 mg tablet RxNorm: 232230 Take 1 Tablet(s) Oral QD 09/08/19 24 No Stop Date Active pregabalin 100 mg capsule RxNorm: 965605 Take 1 Capsule(s) Oral QAM every morning 09/07/19 24 024 Active rosuvastatin 40 mg tablet RxNorm: 176002 Take 1 Tablet(s) Oral QPM every evening 07/13/19 24 No Stop Date Active ezetimibe 10 mg tablet RxNorm: 878286 Take 1 Tablet(s) Oral QD 07/13/19 24 No Stop Date Active bisacodyl 10 mg rectal suppository RxNorm: 503130 Insert 1 Suppository Rectal QD as needed 07/13/19 24 No Stop Date Active polyethylene glycol 3350 17 gram/dose oral powder RxNorm: 637943 Take 17 Gram(s) Oral BID as needed mix in 4-8ox water 07/13/19 24 No Stop Date Active ketoconazole 2 % shampoo RxNorm: 078264 Apply 1 Application Topical UD as directed 07/13/19 24 No Stop Date Active aripiprazole 15 mg tablet RxNorm: 685533 Take 1/2 Tablet(s) Oral QD 07/13/19 24 No Stop Date Active Ozempic 1 mg/dose (4 mg/3 mL) subcutaneous pen injector RxNorm: 1647993 Inject 1 Milligram(s) Subcutaneous QW once a week 07/13/19 24 No Stop Date Active Guaifenesin AC 10 mg-100 mg/5 mL oral liquid RxNorm: 142195 Take 10 Milliliter(s) Oral Q4H every four hours as needed 07/13/19 24 No Stop Date Active isosorbide mononitrate ER 60 mg tablet,extended release 24 hr RxNorm: 785816 Take 1 Tablet(s) Oral QD 07/13/19 24 No Stop Date Active ammonium lactate 12 % topical cream RxNorm: 909973 Apply 1 Application Topical BID 07/13/19 24 No Stop Date Active hydrocortisone 2.5 % topical cream RxNorm: 425634 Apply 1 Application Topical BID as needed 07/13/19 24 No Stop Date Active rosuvastatin 20 mg sprinkle capsule RxNorm: 7649407 Take 1 Capsule(s) Oral QD 07/13/19 24 No Stop Date Active Vascepa 1 gram capsule RxNorm: 3328394 Take 2 Capsule(s) Oral BID 07/13/19 24 No Stop Date Active venlafaxine ER 75 mg capsule,extended release 24 hr RxNorm: 009850 Take 3 Capsule(s) Oral QD 07/13/19 24 No Stop Date Active Basaglar KwikPen U-100 Insulin 100 unit/mL (3 mL) subcutaneous RxNorm: 4796270 Inject 30U SubQ twice daily 07/07/19 24 025 Active Please dispense one month supply. Basaglar KwikPen U-100 Insulin 100 unit/mL (3 mL) subcutaneous RxNorm: 5331903 Inject 30U SubQ twice daily 07/07/19 24 024 Inactive Please dispense one month supply. pregabalin 150 mg capsule RxNorm: 028865 Take 1 Capsule(s) Oral QHS every night at bedtime 07/05/19 24 024 Active pregabalin 150 mg capsule RxNorm: 496112 Take 1 Capsule(s) Oral QHS every night at bedtime 07/05/19 24 024 Inactive polyethylene glycol 3350 17 gram/dose oral powder RxNorm: 254380 Take 1 Packet Oral QD as needed (1 packet = 17g) mix with 4-8oz of liquid 06/15/19 24 024 Inactive bisacodyl 10 mg rectal suppository RxNorm: 428307 Insert one suppository per rectum once daily as needed for constipation 06/15/19 24 024 Inactive bisacodyl 10 mg rectal suppository RxNorm: 303213 Insert one suppository per rectum once daily as needed for constipation 06/15/19 24 024 Inactive pregabalin 100 mg capsule RxNorm: 631539 Take 1 Capsule(s) Oral QAM every morning 04/27/20 23 024 Inactive Levemir FlexPen 100 unit/mL (3 mL) solution subcutaneous insulin pen RxNorm: 388254 Inject 30 Unit(s) Subcutaneous BID 04/27/20 23 024 Inactive rosuvastatin 40 mg tablet RxNorm: 592976 Take 1 Tablet(s) Oral QPM every evening 04/16/20 23 024 Inactive D/C rosuvastatin 20mg venlafaxine ER 75 mg capsule,extended release 24 hr RxNorm: 346960 Take 3 Capsule(s) Oral QD 04/14/20 023 Inactive pregabalin 100 mg capsule RxNorm: 511072 Take 1 Capsule(s) Oral QAM every morning [...] meter clotrimazole 1 % topical cream RxNorm: 999060 Take apply topically to abdominal folds twice daily for 14 days 03/12/20 024 Inactive Ozempic 1 mg/dose (4 mg/3 mL) subcutaneous pen injector RxNorm: 8129972 Inject 1 Milligram(s) Subcutaneous QW once a week 03/11/20 23 023 Inactive rosuvastatin 20 mg tablet RxNorm: 202192 Take 1 Tablet(s) Oral QD 02/26/20 023 Inactive d/c pravastatin 80mg Ozempic 1 mg/dose (4 mg/3 mL) subcutaneous pen injector RxNorm: 5275247 Inject 1 Milligram(s) Subcutaneous QW once a week 02/20/20 23 023 Inactive pregabalin 150 mg capsule RxNorm: 909580 Take 1 Capsule(s) Oral HS at bed time 02/19/20 23 023 Inactive pregabalin 100 mg capsule RxNorm: 474366 Take 1 Capsule(s) Oral QAM every morning 02/18/20 23 023 Inactive venlafaxine ER 75 mg capsule,extended release 24 hr RxNorm: 032138 Take 3 Capsule(s) Oral QD 02/04/20 23 023 Inactive FreeStyle Chema 2 Sensor kit RxNorm: use as directed 02/04/20 23 023 Inactive FreeStyle Chema 2 Sensor kit RxNorm: use as directed 02/04/20 024 Inactive fluconazole 150 mg tablet RxNorm: 876107 Take 1 Tablet(s) Oral on day 3 and on day 6 02/03/20 024 Active chlorthalidone 25 mg tablet RxNorm: 368926 Take 1 Tablet(s) Oral QAM every morning 02/03/20 No Stop Date Active venlafaxine ER 150 mg capsule,extended release 24 hr RxNorm: 879033 Take 1 Capsule(s) Oral QD 02/03/20 023 Inactive acetaminophen 500 mg tablet RxNorm: 436262 1 TABLET ORALLY 3 TIMES DAILY (MAX APAP:4GM/24HR) 12/15/19 23 023 Inactive potassium chloride ER 20 mEq tablet,extended release RxNorm: 653850 Take 1 Tablet(s) Oral BID 12/09/19 024 Inactive d/c 20mEq once daily (sent from hospital) clotrimazole 1 % topical cream RxNorm: 050140 apply 1g topically to top of feet and in between toes BID 12/09/19 23 023 Inactive nystatin 100,000 unit/gram topical powder RxNorm: 500045 APPLY TO AFFECTED AREAS TOPICALLY 2 TIMES DAILY 11/21/19 23 024 Inactive Nystop 100,000 unit/gram topical powder RxNorm: 078284 Apply to abd folds, under breasts and L side of groin Topical BID x 14 days, then BID PRN 11/20/19 23 023 Inactive dx: yeast dermatitis Bengay Ultra Strength 4 %-30 %-10 % topical cream RxNorm: 041639 Apply 1 Gram(s) Topical QID PRN to feet and legs for neuropathic pain 11/11/19 23 024 Active clotrimazole 1 % topical cream RxNorm: 588189 Apply 1/2 Gram(s) Topical BID Apply to affected areas of groin, periarea, and abdominal topically 2 times daily 11/10/19 23 023 Inactive hydrocortisone 2.5 % topical cream RxNorm: 176770 Apply 1/2 Gram(s) Topical BID as needed 11/10/19 024 Inactive Humulin R U-500 (Concentrated) Insulin 500 unit/mL subcutaneous soln RxNorm: 223132 Inject 100 Unit(s) Subcutaneous TID 10/07/19 024 Inactive Levemir FlexPen 100 unit/mL (3 mL) solution subcutaneous insulin pen RxNorm: 448723 Inject 30 Unit(s) Subcutaneous BID 10/07/19 023 Inactive Ozempic 0.25 mg or 0.5 mg (2 mg/3 mL) subcutaneous pen injector RxNorm: 3311620 Inject 1/2 Milligram(s) Subcutaneous QW once a week 10/07/19 024 Inactive aripiprazole 15 mg tablet RxNorm: 335460 1/2 TAB (7.5MG) ORALLY DAILY (DX:MAJOR DEPRESSIVE DISORDER) 09/23/19 023 Inactive Lancets,Thin 28 gauge RxNorm: Use 1 as directed QID 09/15/19 23 024 Inactive Accu-Chek Guide test strips RxNorm: Use 1 Test Strip QID 09/15/19 23 023 Inactive ok to substitute with any covered alternative test strip torsemide 20 mg tablet RxNorm: 615778 Take 1 Tablet(s) Oral BID 09/09/19 024 Inactive d/c once daily dosing carvedilol 25 mg tablet RxNorm: 862275 Take 1 Tablet(s) Oral QD 08/25/19 024 Inactive pregabalin 150 mg capsule RxNorm: 908694 1 Capsule(s) Oral HS at bed time 08/18/19 023 Inactive pregabalin 100 mg capsule RxNorm: 101057 1 Capsule(s) Oral QAM every morning 08/18/19 023 Inactive carvedilol 25 mg tablet RxNorm: 527755 1 Tablet(s) Oral QD 07/28/19 23 023 Inactive lisinopril 20 mg tablet RxNorm: 903093 Give 1 Tablet(s) Oral QD 07/28/19 23 023 Inactive Lyrica 150 mg capsule RxNorm: 462000 Take 1 Capsule(s) Oral QHS every night at bedtime 07/19/19 23 023 Inactive d/c 100mg dose Diflucan 150 mg tablet RxNorm: 139751 Take 1 Tablet(s) Oral QD repeat on day 3 and 6 07/19/19 23 023 Inactive pregabalin 100 mg capsule RxNorm: 047793 Take 1 Capsule(s) Oral QAM every morning 07/19/19 23 023 Inactive gatifloxacin 0.5 % eye drops RxNorm: 194754 Instill 1 Drop(s) as directed TID Instill 1 drop in to affected eye(s) starting 1 day prior to surgery and continue until gone (do not exceed 4 weeks). 07/13/19 23 023 Inactive carvedilol 25 mg tablet RxNorm: 657288 2 Tablet(s) Oral BID 07/13/19 23 023 Inactive Humulin R Regular U-100 Insulin 100 unit/mL injection solution RxNorm: 810099 85 Unit(s) Injection TID 07/13/19 23 023 Inactive ketorolac 0.5 % eye drops RxNorm: 623626 Instill 1 Drop(s) as directed QID Instill 1 drop into affected eye(s) 4 times daily starting 1 day prior to surgery and continue until gone (do not exceed 4 weeks). 07/13/19 23 023 Inactive Diflucan 150 mg tablet RxNorm: 217775 Take 1 Tablet(s) Oral QD repeat on day 3 and 6 06/30/19 23 023 Inactive Accu-Chek Guide test strips RxNorm: Use 1 Test Strip QID Use 1 test strip to monitor blood glucose 4 times daily and as needed. Dx:E11.42. 06/23/19 23 023 Inactive ok to substitute with any covered alternative test strip dextromethorphan-gu aifenesin 10 mg-100 mg/5 mL oral liquid RxNorm: 291256 Take 10 Milliliter(s) Oral every 4 hours as needed for cough 06/19/19 23 023 Inactive dextromethorphan-gu aifenesin 10 mg-100 mg/5 mL oral liquid RxNorm: 165718 Take 10 Milliliter(s) Oral every 4 hours as needed for cough 06/19/19 023 Inactive Lyrica 150 mg capsule RxNorm: 181328 Take 1 Capsule(s) Oral QHS every night at bedtime 06/18/19 023 Inactive d/c 100mg dose aripiprazole 15 mg tablet RxNorm: 402636 /2 TAB (7.5MG) ORALLY DAILY (DX:MAJOR DEPRESSIVE DISORDER) 06/05/19 023 Inactive pregabalin 100 mg capsule RxNorm: 229602 1 Capsule(s) Oral QAM every morning 06/02/19 023 Inactive Banophen 50 mg capsule RxNorm: 4206460 Take 1 Capsule(s) Oral Q6H every 6 hours as needed 05/19/19 No Stop Date Active Novolog Flexpen U-100 Insulin aspart 100 unit/mL (3 mL) subcutaneous RxNorm: 1968398 Inject 10 Unit(s) Subcutaneous QHS every night at bedtime with nighttime snack 04/08/20 022 Inactive Novolog Flexpen U-100 Insulin aspart 100 unit/mL (3 mL) subcutaneous RxNorm: 8484387 Inject 42 Unit(s) Subcutaneous TID in addition to sliding scale 04/08/20 022 Inactive d/c 36u albuterol sulfate HFA 90 mcg/actuation aerosol inhaler RxNorm: 9686948 Take 2 Puff(s) Inhalation Q4H every four hours as needed as needed for SOB, cough, or wheezing 04/07/20 030 Active Banophen 50 mg capsule RxNorm: 8990196 Take 1 Capsule(s) Oral Q6H every 6 hours as needed 04/06/20 023 Inactive diphenhydramine 50 mg tablet RxNorm: 2829363 Take 1 Tablet(s) Oral Q6H every 6 hours as needed 04/06/20 022 Inactive diphenhydramine 50 mg tablet RxNorm: 2230750 1 Tablet(s) Oral Q6H every 6 hours as needed 04/06/20 022 Inactive Abilify 15 mg tablet RxNorm: 440182 1/2 Tablet(s) Oral QD 03/10/20 22 023 Inactive Shingrix (PF) 50 mcg/0.5 mL intramuscular suspension, kit RxNorm: 7016565 Administer 1/2 Milliliter(s) Intramuscular QD one time shingrix step 2 ( step 1 given 11/04/21) WITH needle - Nursing please administer upon arrival and once administered post a bridge message with date of administration, helmet coverer, expiration date, and lot# so we can update [facility] 02/18/20 22 022 Inactive dispense with needle Shingrix (PF) 50 mcg/0.5 mL intramuscular suspension, kit RxNorm: 6849183 Administer 1/2 Milliliter(s) Intramuscular QD one time shingrix step 2 ( step 1 given 11/04/21) WITH needle - Nursing please administer upon arrival and once administered post a bridge message with date of administration, helmet coverer, expiration date, and lot# so we can update [facility] 02/18/20 22 022 Inactive dispense with needle polyethylene glycol 3350 17 gram/dose oral powder RxNorm: 100675 Take 17=1 capful Gram(s) Oral QD mix with 4-8oz of liquid 01/08/20 22 023 Inactive take this in addition to BID prn order Lyrica 100 mg capsule RxNorm: 754125 Take 1 Capsule(s) Oral QAM every morning 01/08/20 22 022 Inactive d/c 50mg dose acetaminophen 500 mg tablet RxNorm: 901897 Take 1 Tablet(s) Oral TID 01/08/20 22 022 Inactive d/c PRN order Lyrica 150 mg capsule RxNorm: 090778 Take 1 Capsule(s) Oral QHS every night at bedtime 01/08/20 22 023 Inactive d/c 100mg dose Abilify 5 mg tablet RxNorm: 356102 Take 1 Tablet(s) Oral QD take 1 tab po QD #30 refill 5 dx: MDD 12/12/19 22 022 Inactive Abilify 5 mg tablet RxNorm: 638347 Take 1 Tablet(s) Oral QD take 1 tab po QD #30 refill 5 dx: MDD 12/12/19 22 022 Inactive Novolog Flexpen U-100 Insulin aspart 100 unit/mL (3 mL) subcutaneous RxNorm: 6638967 Inject 42 Unit(s) Subcutaneous TID in addition to sliding scale 12/10/19 22 022 Inactive d/c 36u chlorthalidone 25 mg tablet RxNorm: 110707 Take 1 Tablet(s) Oral QAM every morning 12/10/19 22 023 Inactive pregabalin 50 mg capsule RxNorm: 545611 Take 1 Capsule(s) Oral QAM every morning 11/12/19 22 022 Inactive tetanus-diphtheria toxoids-Td 2 Lf unit-2 Lf unit/0.5 mL IM suspension RxNorm: 139 Take 0.5 Miscellaneous Intramuscular 11/12/19 22 022 Inactive need tdap - nursing to administer upon arrival pregabalin 50 mg capsule RxNorm: 813006 Take 1 Capsule(s) Oral QAM every morning 10/16/19 022 Inactive pregabalin 50 mg capsule RxNorm: 510540 Take 1 Capsule(s) Oral QAM every morning 10/16/19 22 022 Inactive pregabalin 50 mg capsule RxNorm: 627176 1 Capsule(s) Oral QAM every morning 10/15/19 22 022 Inactive Shingrix (PF) 50 mcg/0.5 mL intramuscular suspension, kit RxNorm: 7157012 Administer 1/2 Milliliter(s) Intramuscular one time Nursing please administer upon arrival and once administered post a bridge message with date of administration, helmet coverer, expiration date, and lot# so we can update [facility]. 10/09/19 22 022 Inactive shingrix step 1 Shingrix (PF) 50 mcg/0.5 mL intramuscular suspension, kit RxNorm: 0310666 Administer 1/2 Milliliter(s) Intramuscular one time Nursing please administer upon arrival and once administered post a bridge message with date of administration, helmet coverer, expiration date, and lot# so we can update [facility]. 10/09/19 22 022 Inactive shingrix step 1 cholecalciferol (vitamin D3) 1,250 mcg (50,000 unit) capsule RxNorm: 775248 Take 1 Capsule(s) Oral QW once a [...] aspart 100 unit/mL (3 mL) subcutaneous RxNorm: 2257529 Inject 10 Unit(s) Subcutaneous QHS every night at bedtime with nighttime snack 10/08/19 22 Inactive Shingrix (PF) 50 mcg/0.5 mL intramuscular suspension, kit RxNorm: 0749479 ADMINISTER 2-DOSE SERIES PER CDC GUIDELINES 10/08/19 22 Active Shingrix (PF) 50 mcg/0.5 mL intramuscular suspension, kit RxNorm: 6194898 ADMINISTER 2-DOSE SERIES PER CDC GUIDELINES 10/08/19 22 Inactive Novolog Flexpen U-100 Insulin aspart 100 unit/mL (3 mL) subcutaneous RxNorm: 2023654 Inject 36 Unit(s) Subcutaneous TID in addition to sliding scale 10/08/19 22 Inactive Novofine Autocover 30 gauge x 1/3 needle RxNorm: Use 1 Miscellaneous UD as directed Use 1 needle as directed to administer insulin 5 times a day Dx:E11.42. 10/03/19 22 Inactive ok to substitute with any covered alternative pen needle benzoyl peroxide 10 % topical cleanser RxNorm: 293219 Apply 1 Application Topical QD apply to face, wash rinse and dry once daily (may change to QOD if drying) 08/19/19 22 Inactive (%covered by insurance) #60ml refill 11 dx: acne benzoyl peroxide 10 % topical cleanser RxNorm: 213240 Apply 1 Application Topical QD apply to face, wash rinse and dry once daily (may change to QOD if drying) 08/19/19 22 022 Inactive (%covered by insurance) #60ml refill 11 dx: acne benzoyl peroxide 10 % topical cleanser RxNorm: 997011 Apply 1 Application Topical QD apply to face, wash rinse and dry once daily (may change to QOD if drying) 08/19/19 22 022 Inactive (%covered by insurance) #60ml refill 11 dx: acne Lyrica 50 mg capsule RxNorm: 046653 Take 1 Capsule(s) Oral QAM every morning Take 1 capsule by mouth once daily 08/19/19 22 022 Inactive benzoyl peroxide 10 % topical cleanser RxNorm: 242829 Apply 1 Application Topical QD apply to face, wash rinse and dry once daily (may change to QOD if drying) 08/19/19 22 022 Inactive (%covered by insurance) #60ml refill 11 dx: acne Lyrica 100 mg capsule RxNorm: 004584 Take 1 Capsule(s) Oral QHS every night at bedtime Take 1 capsule by mouth once daily at bedtime 08/19/19 22 022 Inactive Lyrica 100 mg capsule RxNorm: 694411 Take 1 Capsule(s) Oral QHS every night at bedtime Take 1 capsule by mouth once daily at bedtime 08/16/19 22 022 Inactive Lyrica 50 mg capsule RxNorm: 614138 Take 1 Capsule(s) Oral QAM every morning Take 1 capsule by mouth once daily 08/16/19 Inactive Levemir FlexTouch U-100 Insulin 100 unit/mL (3 mL) subcutaneous pen RxNorm: 814584 Inject 86 Unit(s) Subcutaneous BID 08/05/19 22 022 Inactive d/c 83units BID Lyrica 100 mg capsule RxNorm: 394381 Take 1 Capsule(s) Oral QHS every night at bedtime Take 1 capsule by mouth once daily at bedtime 07/14/19 22 022 Inactive Lyrica 50 mg capsule RxNorm: 822177 Take 1 Capsule(s) Oral QAM every morning Take 1 capsule by mouth once daily 07/14/19 22 Inactive Levemir FlexTouch U-100 Insulin 100 unit/mL (3 mL) subcutaneous pen RxNorm: 499244 Inject 83 Unit(s) Subcutaneous BID 07/08/19 22 Inactive d/c 80units BID Accu-Chek Guide Glucose Meter RxNorm: Use 1 Miscellaneous UD as directed Use glucose meter to monitor blood glucose 4 times daily and as needed. Dx:E11.06/05/19 22 Inactive ok to substitute with any covered alternative meter Novofine Autocover 30 gauge x 1/3 needle RxNorm: Use 1 Miscellaneous UD as directed Use 1 needle as directed to administer insulin. Dx:E11. 06/05/19 22 Inactive ok to substitute with [...] times daily and as needed. Dx:E1106/05/19 22 Inactive ok to substitute with any covered alternative meter Accu-Chek Guide test strips RxNorm: Use 1 Test Strip QID Use 1 test strip to monitor blood glucose 4 times daily and as needed. Dx:E11. 06/05/19 22 Inactive ok to substitute with any covered alternative test strip Accu-Chek Guide test strips RxNorm: Use 1 Test Strip QID Use 1 test strip to monitor blood glucose 4 times daily and as needed. Dx:. 06/05/19 Inactive ok to substitute with any covered alternative test strip hydralazine 50 mg tablet RxNorm: 370843 Take 1 Tablet(s) Oral QID 05/05/20 21 Inactive venlafaxine ER 225 mg tablet,extended release 24 hr RxNorm: 955371 Take 1 Tablet(s) Oral QD 05/05/20 21 021 Inactive venlafaxine ER 225 mg tablet,extended release 24 hr RxNorm: 116788 Take 1 Tablet(s) Oral QD 05/05/20 21 022 Inactive isosorbide mononitrate ER 30 mg tablet,extended release 24 hr RxNorm: 420492 Take 1 Tablet(s) Oral QD 05/05/20 024 Inactive hydralazine 50 mg tablet RxNorm: 879289 Take 1 Tablet(s) Oral QID 05/05/20 21 021 Inactive aspirin 81 mg tablet,delayed release RxNorm: 829094 Take 1 Tablet(s) Oral QD 03/31/20 022 Inactive Vitamin D2 1,250 mcg (50,000 unit) capsule RxNorm: 1106025 Take 1 Capsule(s) Oral QW once a week x 12 weeks 03/31/20 022 Inactive Vitamin D2 1,250 mcg (50,000 unit) capsule RxNorm: 8436845 Take 1 Capsule(s) Oral QW once a week 03/31/20 021 Inactive Zetia 10 mg tablet RxNorm: 437854 Take 1 Tablet(s) Oral QD 03/31/20 024 Inactive Zetia 10 mg tablet RxNorm: 454939 Take 1 Tablet(s) Oral QD 03/31/20 021 Inactive hydralazine 25 mg tablet RxNorm: 539813 Take 1 Tablet(s) Oral QID 03/31/20 21 021 Inactive hydralazine 25 mg tablet RxNorm: 512957 Take 1 Tablet(s) Oral QID 03/31/20 21 021 Inactive hydralazine 10 mg tablet RxNorm: 370645 Take 1 Tablet(s) Oral QID 03/03/20 21 021 Inactive cephalexin 500 mg tablet RxNorm: 669286 Take 1 Tablet(s) Oral QID 02/27/20 21 021 Inactive cephalexin 500 mg tablet RxNorm: 973145 Take 1 Tablet(s) Oral QID 10 021 Inactive lisinopril 40 mg tablet RxNorm: 588587 Take 1 Tablet(s) Oral QD 02/11/20 023 Inactive Eliquis 5 mg tablet RxNorm: 0939605 Take 1 Tablet(s) Oral BID 01/05/20 21 022 Inactive Eliquis 5 mg tablet RxNorm: 0241390 Take 2 Tablet(s) Oral QD 01/01/20 21 021 Inactive Lyrica 50 mg capsule RxNorm: 361288 Take 1 Capsule(s) Oral QAM every morning 12/24/19 021 Inactive Lyrica 100 mg capsule RxNorm: 275567 Take 1 Capsule(s) Oral QHS every night at bedtime 12/24/19 021 Inactive clotrimazole 1 % topical cream RxNorm: 625680 Apply to right foot and toes Topical BID 12/04/19 21 023 Inactive metoprolol succinate ER 200 mg tablet,extended release 24 hr RxNorm: 637941 Take 1 Tablet(s) Oral QD 12/04/19 023 Inactive ciprofloxacin 500 mg tablet RxNorm: 090323 Take 1 Tablet(s) Oral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
--- OUTSIDE RECORDS SUMMARY | 2023-11-03 10:29 | XMS_ITS | CCD ---
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 Role Phone [facility] Primary Care Provider Leona vailable [facility], [facility] Chronic [facility] Management U navailable Summary Purpose DataExchange Insurance Providers Payer name Policy type / Coverage type Covered alliance party ID Effective Begin Date Effective End Date [place] [id number] Unknown [place] B [id number] Unknown Unknown Family history Sister Brittany Suggs [...] Chcf 09/03/[address]: 4803764 Non-Smoker / No History of Smoking 09/02/[address]: 098983586 No Alcohol Consum ption 09/02/2020 Allergies, Adverse Reactions, Alerts Substance Reaction Codes Entered Date Inactivated Date Status * NO KNOWN FOOD ALLERGIES Wrcwrqv1007/13/2023No Inactive DateActiveLISINOPRILRxNorm: 7456128No Inactive DateActiveMetformin DAwPhqrers63/28/2020No Inactive DateActive* NO KNOWN ENVIRONMENTAL ILJCJQGECXfhspsj86/27/2024No Inactive DateActive Problems Condition Codes Effective Dates Condition St atus Hypokalemia ICD-10: E87.6 ICD-9: 276.806/ctiveBMI 60.0-69.9, adultICD-10: Z68.44 ICD-9: V85.4405/ctiveCandidal intertrigoICD-10: B37.2 ICD-9: 112.305/ctiveHistory of anemia due to CKDICD-10: N18.9 ICD-9: 585.905/ctiveLearning disabilityICD-10: F81.9 ICD-9: 315.205ctiveParaparesis of both lower limbsICD-10: G82.20 ICD-9: 344.105/ctiveReducible umbilical herniaICD-10: K42.9 ICD-9: 553.105ctiveSeizure disorderICD-10: G40.909 ICD-9: 345.90010/12/2023ctiveCallus of heelICD-10: L84 ICD-9: 49504/esolvedGout due to renal impairmentICD-10: M10.30 ICD-9: 274.10010/12/2023esolvedHyperhidrosis of palmsICD-10: L74.512 ICD-9: 705.21010/12/2023esolvedHyperlipidemia, unspecifiedICD-10: E78.5 ICD-9: 272.405esolvedOther padding machine operator (current) drug therapyICD-10: Z79.899 ICD-9: V58.6905esolvedPain of right heelICD-10: M79.671 ICD-9: 729.505/esolvedStage 2 chronic kidney diseaseICD-10: N18.2 ICD-9: 585.205esolvedTinea pedis of both feetICD-10: B35.3 ICD-9: 110.405esolvedAmputated toe of right footICD-10: S98.131A ICD-9: 895.004/ctiveConstipation by delayed colonic transitICD-10: K59.01 ICD-9: 564.0104ctiveDiabetic neuropathy associated with type 2 diabetes mellitusICD-10: E11.40 ICD-9: 250.6004ctiveHx of deep venous thrombosisICD-10: Z86.718 ICD-9: V12.5104/ctiveHypercoagulable stateICD-10: D68.59 ICD-9: 289.8104/ctiveHyperlipidemia associated with type 2 diabetes mellitusICD-10: E11.69 ICD-9: 250.8004/ctiveHypertensive heart disease without heart failure ICD-10: I11.9 ICD-9: 402.9004/ctiveOnychogryposisICD-10: L60.2 ICD-9: 703.804ctiveRecurrent major depressive disorder, in partial remissionICD-10: F33.41 ICD-9: 296.3504ctiveStage 2 chronic 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ICD-10: E11.22 ICD-9: 250.4004ctiveType 2 diabetes mellitus with diabetic polyneuropathy, with long-term current use of insulinICD-10: E11.42 ICD-9: 250.6004ctiveVitamin D deficiencyICD-10: E55.9 ICD-9: 268.904ctiveCellulitisICD-10: L03.90 ICD-9: 682.904esolvedDandruff in adultICD-10: L21.0 ICD-9: 690.1804esolvedEncounter for other specified special examinationsICD-10: Z01.89 ICD-9: V72.8504/esolvedEncounter for screening for nutritional disorder ICD-10: Z13.21 ICD-9: V77.9904/esolvedImpacted cerumen, left earICD-10: H61.22 ICD-9: 380.404/4ResolvedShortness of breathICD-10: R06.02 ICD-9: 786.0504/esolvedSkin tagICD-10: L91.8 ICD-9: 701.904esolvedLower extremity edemaICD-10: R60.0 ICD-9: 782.303/ctiveMajor depression, recurrentICD-10: F33.9 ICD-9: 296.30034ActivePVD (peripheral vascular disease)ICD-10: I73.9 ICD-9: 443.9034ActiveCoronary artery disease involving [place] coronary artery of [place] heart, angina presence unspecifiedICD-10: I25.10 ICD-9: 414.0102/ctiveInappropriate sexual behaviorICD-10: Z72.89 ICD-9: 312.8910ctiveAnnual physical examICD-10: Z00.00 ICD-9: V70.009/ctivePre-op evaluationICD-10: Z01.818 ICD-9: V72.8403ctiveSecondary hypertensionICD-10: I15.9 ICD-9: 405.9903ctiveDepressionICD-10: F32.9 ICD-9: 23146esolvedDVT (deep venous thrombosis)ICD-10: I82.409 ICD-9: 453.40092ResolvedEncounter for immunizationICD-10: Z23 ICD-9: V03.89092ResolvedLong term (current) use of insulinICD-10: Z79.4 2ResolvedMuscular painICD-10: M79.10 ICD-9: 729.1092ResolvedHypertension associated with diabetesICD-10: E11.59 ICD-9: 250.80082ResolvedContact with and (suspected) exposure to covid-19 ICD-10: Z20.822 ICD-9: V01.7908/1ResolvedOther infective acute otitis externa of left ear ICD-10: H60.392 ICD-9: 380.10081ResolvedScrotal skin lesionICD-10: N50.9 ICD-9: 608.908esolvedAnemia due to stage 3b chronic kidney diseaseICD- 10: N18.32 ICD-9: 285.2105esolvedChronic kidney disease, stage 3 unspecifiedICD- 10: N18.30041ResolvedContact with and (suspected) exposure to other viral communicable diseasesICD-10: Z20.828 ICD-9: V01.79025938InptiyjxSglptfwlXqckkyo52/28/2020ActiveDiabetes mellitus Type 0Lywbtki67/28/2020ActiveAnemia in chronic kidney diseaseICD-10: D63.1 02/12/2020ResolvedHyperlipidemia, unspecifiedICD-10: E78.Resolved Medications Medication Codes Instructions Start Date Stop Date Status Fill Instructions torsemide 20 mg tablet RxNorm: 973569 Take 1 Tablet(s) Oral QD 10/26/19 24 024 Inactive potassium chloride ER 20 mEq tablet,extended release RxNorm: 19800522 Take 2 Tablet(s) Oral BID 10/26/19 24 024 Inactive torsemide 20 mg tablet RxNorm: 250776 Take 1 Tablet(s) Oral QD 10/26/19 24 024 Active potassium chloride ER 20 mEq tablet,extended release RxNorm: 19800522 Take 2 Tablet(s) Oral BID 10/26/19 24 025 Active Artificial Tears (PF) 0.1 %-0.3 % drops in a dropperette RxNorm: 037522 Apply 1-2 Drop(s) Both eyes BID as needed 09/28/19 24 025 Active erythromycin 5 mg/gram (0.5 %) eye ointment RxNorm: 897584 Apply 1 Application Both eyes QHS every night at bedtime Instill ~1 cm ribbon into affected eye 09/28/19 24 024 Inactive Artificial Tears (PF) 0.1 %-0.3 % drops in a dropperette RxNorm: 788749 Apply 1-2 Drop(s) Both eyes BID as needed 09/28/19 24 024 Inactive erythromycin 5 mg/gram (0.5 %) eye ointment RxNorm: 393332 Apply 1 Application Both eyes QHS every night at bedtime Instill ~1 cm ribbon into affected eye 09/28/19 24 024 Inactive acetaminophen 500 mg tablet RxNorm: 690058 (MAX APAP:4GM/24HR) Take 1 Tablet(s) Oral TID as needed for pain 09/24/19 24 024 Inactive carvedilol 25 mg tablet RxNorm: 189562 Take 1 Tablet(s) Oral QD 09/08/19 24 No Stop Date Active pregabalin 100 mg capsule RxNorm: 717078 Take 1 Capsule(s) Oral QAM every morning 09/07/19 24 024 Active rosuvastatin 40 mg tablet RxNorm: 543245 Take 1 Tablet(s) Oral QPM every evening 07/13/19 24 No Stop Date Active ezetimibe 10 mg tablet RxNorm: 744878 Take 1 Tablet(s) Oral QD 07/13/19 24 No Stop Date Active bisacodyl 10 mg rectal suppository RxNorm: 156747 Insert 1 Suppository Rectal QD as needed 07/13/19 24 No Stop Date Active polyethylene glycol 3350 17 gram/dose oral powder RxNorm: 864551 Take 17 Gram(s) Oral BID as needed mix in 4-8ox water 07/13/19 24 No Stop Date Active ketoconazole 2 % shampoo RxNorm: 992931 Apply 1 Application Topical UD as directed 07/13/19 24 No Stop Date Active aripiprazole 15 mg tablet RxNorm: 006180 Take 1/2 Tablet(s) Oral QD 07/13/19 24 No Stop Date Active Ozempic 1 mg/dose (4 mg/3 mL) subcutaneous pen injector RxNorm: 8971052 Inject 1 Milligram(s) Subcutaneous QW once a week 07/13/19 24 No Stop Date Active Guaifenesin AC 10 mg-100 mg/5 mL oral liquid RxNorm: 390673 Take 10 Milliliter(s) Oral Q4H every four hours as needed 07/13/19 24 No Stop Date Active isosorbide mononitrate ER 60 mg tablet,extended release 24 hr RxNorm: 734305 Take 1 Tablet(s) Oral QD 07/13/19 24 No Stop Date Active ammonium lactate 12 % topical cream RxNorm: 805312 Apply 1 Application Topical BID 07/13/19 24 No Stop Date Active hydrocortisone 2.5 % topical cream RxNorm: 607456 Apply 1 Application Topical BID as needed 07/13/19 24 No Stop Date Active rosuvastatin 20 mg sprinkle capsule RxNorm: 7706492 Take 1 Capsule(s) Oral QD 07/13/19 24 No Stop Date Active Vascepa 1 gram capsule RxNorm: 2537802 Take 2 Capsule(s) Oral BID 07/13/19 24 No Stop Date Active venlafaxine ER 75 mg capsule,extended release 24 hr RxNorm: 331054 Take 3 Capsule(s) Oral QD 07/13/19 24 No Stop Date Active Basaglar KwikPen U-100 Insulin 100 unit/mL (3 mL) subcutaneous RxNorm: 8292481 Inject 30U SubQ twice daily 07/07/19 24 025 Active Please dispense one month supply. Basaglar KwikPen U-100 Insulin 100 unit/mL (3 mL) subcutaneous RxNorm: 1555804 Inject 30U SubQ twice daily 07/07/19 24 024 Inactive Please dispense one month supply. pregabalin 150 mg capsule RxNorm: 132736 Take 1 Capsule(s) Oral QHS every night at bedtime 07/05/19 24 024 Active pregabalin 150 mg capsule RxNorm: 532013 Take 1 Capsule(s) Oral QHS every night at bedtime 07/05/19 24 024 Inactive polyethylene glycol 3350 17 gram/dose oral powder RxNorm: 123205 Take 1 Packet Oral QD as needed (1 packet = 17g) mix with 4-8oz of liquid 06/15/19 24 024 Inactive bisacodyl 10 mg rectal suppository RxNorm: 153468 Insert one suppository per rectum once daily as needed for constipation 06/15/19 24 024 Inactive bisacodyl 10 mg rectal suppository RxNorm: 195814 Insert one suppository per rectum once daily as needed for constipation 06/15/19 24 024 Inactive pregabalin 100 mg capsule RxNorm: 025185 Take 1 Capsule(s) Oral QAM every morning 04/27/20 23 024 Inactive Levemir FlexPen 100 unit/mL (3 mL) solution subcutaneous insulin pen RxNorm: 627623 Inject 30 Unit(s) Subcutaneous BID 04/27/20 024 Inactive rosuvastatin 40 mg tablet RxNorm: 881419 Take 1 Tablet(s) Oral QPM every evening 04/16/20 024 Inactive D/C rosuvastatin 20mg venlafaxine ER 75 mg capsule,extended release 24 hr RxNorm: 237615 Take 3 Capsule(s) Oral QD 04/14/20 023 Inactive pregabalin 100 mg capsule RxNorm: 805299 Take 1 Capsule(s) Oral QAM every morning [...] meter clotrimazole 1 % topical cream RxNorm: 106193 Take apply topically to abdominal folds twice daily for 14 days 03/12/20 024 Inactive Ozempic 1 mg/dose (4 mg/3 mL) subcutaneous pen injector RxNorm: 4252832 Inject 1 Milligram(s) Subcutaneous QW once a week 03/11/20 023 Inactive rosuvastatin 20 mg tablet RxNorm: 621559 Take 1 Tablet(s) Oral QD 02/26/20 023 Inactive d/c pravastatin 80mg Ozempic 1 mg/dose (4 mg/3 mL) subcutaneous pen injector RxNorm: 3610005 Inject 1 Milligram(s) Subcutaneous QW once a week 02/20/20 023 Inactive pregabalin 150 mg capsule RxNorm: 147122 Take 1 Capsule(s) Oral HS at bed time 02/19/20 23 023 Inactive pregabalin 100 mg capsule RxNorm: 936602 Take 1 Capsule(s) Oral QAM every morning 02/18/20 023 Inactive venlafaxine ER 75 mg capsule,extended release 24 hr RxNorm: 854863 Take 3 Capsule(s) Oral QD 02/04/20 23 023 Inactive FreeStyle Chema 2 Sensor kit RxNorm: use as directed 02/04/20 23 023 Inactive FreeStyle Chema 2 Sensor kit RxNorm: use as directed 02/04/20 024 Inactive fluconazole 150 mg tablet RxNorm: 379234 Take 1 Tablet(s) Oral on day 3 and on day 6 02/03/20 024 Active chlorthalidone 25 mg tablet RxNorm: 799673 Take 1 Tablet(s) Oral QAM every morning 02/03/20 No Stop Date Active venlafaxine ER 150 mg capsule,extended release 24 hr RxNorm: 987365 Take 1 Capsule(s) Oral QD 02/03/20 023 Inactive acetaminophen 500 mg tablet RxNorm: 652856 1 TABLET ORALLY 3 TIMES DAILY (MAX APAP:4GM/24HR) 12/15/19 23 023 Inactive clotrimazole 1 % topical cream RxNorm: 804237 apply 1g topically to top of feet and in between toes BID 12/09/19 23 023 Inactive potassium chloride ER 20 mEq tablet,extended release RxNorm: 672703 Take 1 Tablet(s) Oral BID 12/09/19 024 Inactive d/c 20mEq once daily (sent from hospital) nystatin 100,000 unit/gram topical powder RxNorm: 825431 APPLY TO AFFECTED AREAS TOPICALLY 2 TIMES DAILY 11/21/19 23 024 Inactive Nystop 100,000 unit/gram topical powder RxNorm: 615742 Apply to abd folds, under breasts and L side of groin Topical BID x 14 days, then BID PRN 11/20/19 23 023 Inactive dx: yeast dermatitis [place] Ultra Strength 4 %-30 %-10 % topical cream RxNorm: 149004 Apply 1 Gram(s) Topical QID PRN to feet and legs for neuropathic pain 11/11/19 23 024 Active clotrimazole 1 % topical cream RxNorm: 155134 Apply 1/2 Gram(s) Topical BID Apply to affected areas of groin, periarea, and abdominal topically 2 times daily 11/10/19 23 023 Inactive hydrocortisone 2.5 % topical cream RxNorm: 338960 Apply 1/2 Gram(s) Topical BID as needed 11/10/19 024 Inactive Humulin R U-500 (Concentrated) Insulin 500 unit/mL subcutaneous soln RxNorm: 934742 Inject 100 Unit(s) Subcutaneous TID 10/07/19 024 Inactive Levemir FlexPen 100 unit/mL (3 mL) solution subcutaneous insulin pen RxNorm: 116389 Inject 30 Unit(s) Subcutaneous BID 10/07/19 023 Inactive Ozempic 0.25 mg or 0.5 mg (2 mg/3 mL) subcutaneous pen injector RxNorm: 9350231 Inject 1/2 Milligram(s) Subcutaneous QW once a week 10/07/19 024 Inactive aripiprazole 15 mg tablet RxNorm: 884662 1/2 TAB (7.5MG) ORALLY DAILY (DX:MAJOR DEPRESSIVE DISORDER) 09/23/19 023 Inactive Lancets,Thin 28 gauge RxNorm: Use 1 as directed QID 09/15/19 23 024 Inactive Accu-Chek Guide test strips RxNorm: Use 1 Test Strip QID 09/15/19 23 023 Inactive ok to substitute with any covered alternative test strip torsemide 20 mg tablet RxNorm: 215455 Take 1 Tablet(s) Oral BID 09/09/19 23 024 Inactive d/c once daily dosing carvedilol 25 mg tablet RxNorm: 684642 Take 1 Tablet(s) Oral QD 08/25/19 23 024 Inactive pregabalin 150 mg capsule RxNorm: 977861 1 Capsule(s) Oral HS at bed time 08/18/19 023 Inactive pregabalin 100 mg capsule RxNorm: 458878 1 Capsule(s) Oral QAM every morning 08/18/19 023 Inactive carvedilol 25 mg tablet RxNorm: 980278 1 Tablet(s) Oral QD 07/28/19 23 023 Inactive lisinopril 20 mg tablet RxNorm: 520252 Give 1 Tablet(s) Oral QD 07/28/19 23 023 Inactive Lyrica 150 mg capsule RxNorm: 714345 Take 1 Capsule(s) Oral QHS every night at bedtime 07/19/19 23 023 Inactive d/c 100mg dose Diflucan 150 mg tablet RxNorm: 120132 Take 1 Tablet(s) Oral QD repeat on day 3 and 6 07/19/19 23 023 Inactive pregabalin 100 mg capsule RxNorm: 202020 Take 1 Capsule(s) Oral QAM every morning 07/19/19 023 Inactive gatifloxacin 0.5 % eye drops RxNorm: 107439 Instill 1 Drop(s) as directed TID Instill 1 drop in to affected eye(s) starting 1 day prior to surgery and continue until gone (do not exceed 4 weeks). 07/13/19 23 023 Inactive carvedilol 25 mg tablet RxNorm: 643256 2 Tablet(s) Oral BID 07/13/19 23 023 Inactive Humulin R Regular U-100 Insulin 100 unit/mL injection solution RxNorm: 657625 85 Unit(s) Injection TID 07/13/19 23 023 Inactive ketorolac 0.5 % eye drops RxNorm: 987998 Instill 1 Drop(s) as directed QID Instill 1 drop into affected eye(s) 4 times daily starting 1 day prior to surgery and continue until gone (do not exceed 4 weeks). 07/13/19 23 023 Inactive Diflucan 150 mg tablet RxNorm: 098633 Take 1 Tablet(s) Oral QD repeat on day 3 and 6 06/30/19 23 023 Inactive Accu-Chek Guide test strips RxNorm: Use 1 Test Strip QID Use 1 test strip to monitor blood glucose 4 times daily and as needed. Dx:E11.42. 06/23/19 23 023 Inactive ok to substitute with any covered alternative test strip dextromethorphan-gu aifenesin 10 mg-100 mg/5 mL oral liquid RxNorm: 707256 Take 10 Milliliter(s) Oral every 4 hours as needed for cough 06/19/19 023 Inactive dextromethorphan-gu aifenesin 10 mg-100 mg/5 mL oral liquid RxNorm: 055459 Take 10 Milliliter(s) Oral every 4 hours as needed for cough 06/19/19 023 Inactive Lyrica 150 mg capsule RxNorm: 061400 Take 1 Capsule(s) Oral QHS every night at bedtime 06/18/19 023 Inactive d/c 100mg dose aripiprazole 15 mg tablet RxNorm: 280125 1/2 TAB (7.5MG) ORALLY DAILY (DX:MAJOR DEPRESSIVE DISORDER) 06/05/19 023 Inactive pregabalin 100 mg capsule RxNorm: 130111 1 Capsule(s) Oral QAM every morning 06/02/19 023 Inactive Banophen 50 mg capsule RxNorm: 6599323 Take 1 Capsule(s) Oral Q6H every 6 hours as needed 05/19/19 23 No Stop Date Active Novolog Flexpen U-100 Insulin aspart 100 unit/mL (3 mL) subcutaneous RxNorm: 5657338 Inject 10 Unit(s) Subcutaneous QHS every night at bedtime with nighttime snack 04/08/20 022 Inactive Novolog Flexpen U-100 Insulin aspart 100 unit/mL (3 mL) subcutaneous RxNorm: 1691828 Inject 42 Unit(s) Subcutaneous TID in addition to sliding scale 04/08/20 22 022 Inactive d/c 36u albuterol sulfate HFA 90 mcg/actuation aerosol inhaler RxNorm: 2513836 Take 2 Puff(s) Inhalation Q4H every four hours as needed as needed for SOB, cough, or wheezing 04/07/20 22 030 Active Banophen 50 mg capsule RxNorm: 3329991 Take 1 Capsule(s) Oral Q6H every 6 hours as needed 04/06/20 023 Inactive diphenhydramine 50 mg tablet RxNorm: 8766348 Take 1 Tablet(s) Oral Q6H every 6 hours as needed 04/06/20 22 022 Inactive diphenhydramine 50 mg tablet RxNorm: 4657785 1 Tablet(s) Oral Q6H every 6 hours as needed 04/06/20 22 022 Inactive Abilify 15 mg tablet RxNorm: 031237 1/2 Tablet(s) Oral QD 03/10/20 22 023 Inactive Shingrix (PF) 50 mcg/0.5 mL intramuscular suspension, kit RxNorm: 0164523 Administer 1/2 Milliliter(s) Intramuscular QD one time shingrix step 2 ( step 1 given 11/04/21) WITH needle - Nursing please administer upon arrival and once administered post a bridge message with date of administration, supervisor records change, expiration date, and lot# so we can update [facility] 02/18/20 22 022 Inactive dispense with needle Shingrix (PF) 50 mcg/0.5 mL intramuscular suspension, kit RxNorm: 9163676 Administer 1/2 Milliliter(s) Intramuscular QD one time shingrix step 2 ( step 1 given 11/04/21) WITH needle - Nursing please administer upon arrival and once administered post a bridge message with date of administration, supervisor records change, expiration date, and lot# so we can update [facility] 02/18/20 22 022 Inactive dispense with needle polyethylene glycol 3350 17 gram/dose oral powder RxNorm: 903297 Take 17=1 capful Gram(s) Oral QD mix with 4-8oz of liquid 01/08/20 22 023 Inactive take this in addition to BID prn order Lyrica 100 mg capsule RxNorm: 259354 Take 1 Capsule(s) Oral QAM every morning 01/08/20 22 022 Inactive d/c 50mg dose acetaminophen 500 mg tablet RxNorm: 742867 Take 1 Tablet(s) Oral TID 01/08/20 22 022 Inactive d/c PRN order Lyrica 150 mg capsule RxNorm: 839598 Take 1 Capsule(s) Oral QHS every night at bedtime 01/08/20 22 023 Inactive d/c 100mg dose Abilify 5 mg tablet RxNorm: 189381 Take 1 Tablet(s) Oral QD take 1 tab po QD #30 refill 5 dx: MDD 12/12/19 22 022 Inactive Abilify 5 mg tablet RxNorm: 695411 Take 1 Tablet(s) Oral QD take 1 tab po QD #30 refill 5 dx: MDD 12/12/19 22 022 Inactive Novolog Flexpen U-100 Insulin aspart 100 unit/mL (3 mL) subcutaneous RxNorm: 6120623 Inject 42 Unit(s) Subcutaneous TID in addition to sliding scale 12/10/19 22 022 Inactive d/c 36u chlorthalidone 25 mg tablet RxNorm: 008884 Take 1 Tablet(s) Oral QAM every morning 12/10/19 22 023 Inactive pregabalin 50 mg capsule RxNorm: 336947 Take 1 Capsule(s) Oral QAM every morning 11/12/19 22 022 Inactive tetanus-diphtheria toxoids-Td 2 Lf unit-2 Lf unit/0.5 mL IM suspension RxNorm: 139 Take 0.5 Miscellaneous Intramuscular 11/12/19 22 022 Inactive need tdap - nursing to administer upon arrival pregabalin 50 mg capsule RxNorm: 890686 Take 1 Capsule(s) Oral QAM every morning 10/16/19 22 022 Inactive pregabalin 50 mg capsule RxNorm: 994412 Take 1 Capsule(s) Oral QAM every morning 10/16/19 22 022 Inactive pregabalin 50 mg capsule RxNorm: 626056 1 Capsule(s) Oral QAM every morning 10/15/19 22 022 Inactive Shingrix (PF) 50 mcg/0.5 mL intramuscular suspension, kit RxNorm: 1315326 Administer 1/2 Milliliter(s) Intramuscular one time Nursing please administer upon arrival and once administered post a bridge message with date of administration, supervisor records change, expiration date, and lot# so we can update [facility]. 10/09/19 22 022 Inactive shingrix step 1 Shingrix (PF) 50 mcg/0.5 mL intramuscular suspension, kit RxNorm: 2217088 Administer 1/2 Milliliter(s) Intramuscular one time Nursing please administer upon arrival and once administered post a bridge message with date of administration, supervisor records change, expiration date, and lot# so we can update [facility]. 10/09/19 22 Inactive shingrix step 1 cholecalciferol (vitamin D3) 1,250 mcg (50,000 unit) capsule RxNorm: 885496 Take 1 Capsule(s) Oral QW once a [...] aspart 100 unit/mL (3 mL) subcutaneous RxNorm: 2688510 Inject 10 Unit(s) Subcutaneous QHS every night at bedtime with nighttime snack 10/08/19 22 Inactive Shingrix (PF) 50 mcg/0.5 mL intramuscular suspension, kit RxNorm: 6026033 ADMINISTER 2-DOSE SERIES PER CDC GUIDELINES 10/08/19 22 Active Shingrix (PF) 50 mcg/0.5 mL intramuscular suspension, kit RxNorm: 7740178 ADMINISTER 2-DOSE SERIES PER CDC GUIDELINES 10/08/19 22 022 Inactive Novolog Flexpen U-100 Insulin aspart 100 unit/mL (3 mL) subcutaneous RxNorm: 4164187 Inject 36 Unit(s) Subcutaneous TID in addition to sliding scale 10/08/19 22 Inactive Novofine Autocover 30 gauge x 1/3 needle RxNorm: Use 1 Miscellaneous UD as directed Use 1 needle as directed to administer insulin 5 times a day Dx:E11.42. 10/03/19 22 Inactive ok to substitute with any covered alternative pen needle benzoyl peroxide 10 % topical cleanser RxNorm: 490587 Apply 1 Application Topical QD apply to face, wash rinse and dry once daily (may change to QOD if drying) 08/19/19 22 022 Inactive (%covered by insurance) #60ml refill 11 dx: acne benzoyl peroxide 10 % topical cleanser RxNorm: 724206 Apply 1 Application Topical QD apply to face, wash rinse and dry once daily (may change to QOD if drying) 08/19/19 22 022 Inactive (%covered by insurance) #60ml refill 11 dx: acne benzoyl peroxide 10 % topical cleanser RxNorm: 552591 Apply 1 Application Topical QD apply to face, wash rinse and dry once daily (may change to QOD if drying) 08/19/19 22 022 Inactive (%covered by insurance) #60ml refill 11 dx: acne Lyrica 50 mg capsule RxNorm: 898400 Take 1 Capsule(s) Oral QAM every morning Take 1 capsule by mouth once daily 08/19/19 22 022 Inactive benzoyl peroxide 10 % topical cleanser RxNorm: 330378 Apply 1 Application Topical QD apply to face, wash rinse and dry once daily (may change to QOD if drying) 08/19/19 022 Inactive (%covered by insurance) #60ml refill 11 dx: acne Lyrica 100 mg capsule RxNorm: 762514 Take 1 Capsule(s) Oral QHS every night at bedtime Take 1 capsule by mouth once daily at bedtime 08/19/19 22 022 Inactive Lyrica 100 mg capsule RxNorm: 833299 Take 1 Capsule(s) Oral QHS every night at bedtime Take 1 capsule by mouth once daily at bedtime 08/16/19 22 022 Inactive Lyrica 50 mg capsule RxNorm: 019121 Take 1 Capsule(s) Oral QAM every morning Take 1 capsule by mouth once daily 08/16/19 22 Inactive Levemir FlexTouch U-100 Insulin 100 unit/mL (3 mL) subcutaneous pen RxNorm: 222533 Inject 86 Unit(s) Subcutaneous BID 08/05/19 22 022 Inactive d/c 83units BID Lyrica 100 mg capsule RxNorm: 785020 Take 1 Capsule(s) Oral QHS every night at bedtime Take 1 capsule by mouth once daily at bedtime 07/14/19 22 022 Inactive Lyrica 50 mg capsule RxNorm: 020130 Take 1 Capsule(s) Oral QAM every morning Take 1 capsule by mouth once daily 07/14/19 22 022 Inactive Levemir FlexTouch U-100 Insulin 100 unit/mL (3 mL) subcutaneous pen RxNorm: 808552 Inject 83 Unit(s) Subcutaneous BID 07/08/19 22 [...] test strip hydralazine 50 mg tablet RxNorm: 486221 Take 1 Tablet(s) Oral QID 05/05/20 Inactive venlafaxine ER 225 mg tablet,extended release 24 hr RxNorm: 261432 Take 1 Tablet(s) Oral QD 05/05/20 Inactive venlafaxine ER 225 mg tablet,extended release 24 hr RxNorm: 460847 Take 1 Tablet(s) Oral QD 05/05/20 022 Inactive isosorbide mononitrate ER 30 mg tablet,extended release 24 hr RxNorm: 100378 Take 1 Tablet(s) Oral QD 05/05/20 024 Inactive hydralazine 50 mg tablet RxNorm: 358323 Take 1 Tablet(s) Oral QID 05/05/20 Inactive aspirin 81 mg tablet,delayed release RxNorm: 079579 Take 1 Tablet(s) Oral QD 03/31/20 022 Inactive Vitamin D2 1,250 mcg (50,000 unit) capsule RxNorm: 6191614 Take 1 Capsule(s) Oral QW once a week x 12 weeks 03/31/20 022 Inactive Vitamin D2 1,250 mcg (50,000 unit) capsule RxNorm: 2577965 Take 1 Capsule(s) Oral QW once a week 03/31/20 021 Inactive Zetia 10 mg tablet RxNorm: 908022 Take 1 Tablet(s) Oral QD 03/31/20 024 Inactive Zetia 10 mg tablet RxNorm: 595659 Take 1 Tablet(s) Oral QD 03/31/20 021 Inactive hydralazine 25 mg tablet RxNorm: 444335 Take 1 Tablet(s) Oral QID 03/31/20 21 021 Inactive hydralazine 25 mg tablet RxNorm: 024504 Take 1 Tablet(s) Oral QID 03/31/20 021 Inactive hydralazine 10 mg tablet RxNorm: 265840 Take 1 Tablet(s) Oral QID 03/03/20 021 Inactive cephalexin 500 mg tablet RxNorm: 110644 Take 1 Tablet(s) Oral QID 02/27/20 021 Inactive cephalexin 500 mg tablet RxNorm: 174198 Take 1 Tablet(s) Oral QID 02/27/20 021 Inactive lisinopril 40 mg tablet RxNorm: 139383 Take 1 Tablet(s) Oral QD 02/11/20 023 Inactive Eliquis 5 mg tablet RxNorm: 2096640 Take 1 Tablet(s) Oral BID 01/05/20 21 022 Inactive Eliquis 5 mg tablet RxNorm: 4980272 Take 2 Tablet(s) Oral QD 01/01/20 21 021 Inactive Lyrica 50 mg capsule RxNorm: 376951 Take 1 Capsule(s) Oral QAM every morning 12/24/19 021 Inactive Lyrica 100 mg capsule RxNorm: 154692 Take 1 Capsule(s) Oral QHS every night at bedtime 12/24/19 021 Inactive clotrimazole 1 % topical cream RxNorm: 176785 Apply to right foot and toes Topical BID 12/04/19 21 023 Inactive metoprolol succinate ER 200 mg tablet,extended release 24 hr RxNorm: 597173 Take 1 Tablet(s) Oral QD 12/04/19 023 Inactive ciprofloxacin 500 mg tablet RxNorm: 751720 Take 1 Tablet(s) Oral QD 11/30/19 21 021 Inactive DX ofloxacin otic drops Accu-Chek Guide test strips RxNorm: USE 1 TO CHECK GLUCOSE 4 TIMES DAILY AND NEEDED 11/15/19 21 023 Inactive Blood Glucose Test strips RxNorm: Use 1 Test Strip QID at PRN 11/05/19 21 023 Inactive E11.42 lisinopril 30 mg tablet RxNorm: 077419 Take 1 Tablet(s) Oral QD 10/30/19 21 021 Inactive lisinopril 20 mg tablet RxNorm: 582169 Take 1 Tablet(s) Oral QD 10/23/19 21 021 Inactive lisinopril 20 mg tablet RxNorm: 623523 Take 1 Tablet(s) Oral QD 10/23/19 21 021 Inactive lisinopril 10 mg tablet RxNorm: 064215 Take 1 Tablet(s) Oral QD 10/02/19 21 021 Inactive icosapent ethyl 1 gram capsule RxNorm: 6589496 Take 2 Capsule(s) (2 gm) Oral BID with meals 09/12/19 024 Inactive Okay to dispense one 2gm tab if you have that available. icosapent ethyl 1 gram capsule RxNorm: 4134026 Take 2 Capsule(s) Oral BID 09/12/19 21 021 Inactive Okay to dispense one 2gm tab if you have that available. amlodipine 10 mg tablet RxNorm: 277184 Take 1 Tablet(s) Oral QD 09/04/19 21 022 Inactive aspirin 81 mg tablet,delayed release RxNorm: 640841 Take 1 Tablet(s) Oral QD 09/04/19 21 021 Inactive Levemir FlexTouch U-100 Insulin 100 unit/mL (3 mL) subcutaneous pen RxNorm: 292862 Inject 150 Unit(s) Subcutaneous BID 09/04/19 21 022 Inactive venlafaxine ER 150 mg tablet,extended release 24 hr RxNorm: 078379 Take 1 Tablet(s) Oral QD 09/04/19 21 021 Inactive clotrimazole-betame thasone 1 %-0.05 % topical cream RxNorm: 146353 Apply to rash on red area on left abdomen/chest Topical BID 08/10/19 21 021 Inactive amlodipine 5 mg tablet RxNorm: 471724 Take 1 Tablet(s) Oral QD 07/31/19 21 021 Inactive cephalexin 500 mg tablet RxNorm: 904874 Take 1 Tablet(s) Oral BID BID - Twice Daily 07/31/19 21 021 Inactive Start 08/01/20 pantoprazole 40 mg tablet,delayed release RxNorm: 513101 Take 1 Tablet(s) Oral QAM every morning 07/08/19 022 Inactive senna 8.6 mg tablet RxNorm: 913093 Take 1 Tablet(s) Oral QD 07/08/19 022 Inactive carbamazepine 200 mg tablet RxNorm: 373161 Take 1 Tablet(s) Oral BID 07/08/19 022 Inactive clopidogrel 75 mg tablet RxNorm: 927022 Take 1 Tablet(s) Oral QD 07/08/19 021 Inactive Blood Glucose Test strips RxNorm: Use 1 Test Strip QID at PRN 07/08/19 21 Inactive E11.42 Novolog Flexpen U-100 Insulin aspart 100 unit/mL (3 mL) subcutaneous RxNorm: 3723079 Administer per sliding scale Milliliter(s) Subcutaneous TID 151-200: 10 u; 201-250: 20 u; 251-300: 30 u; 301-350: 40 u; 351-400: 50 u. 07/08/19 022 Inactive lisinopril 5 mg tablet RxNorm: 300304 Take 1 Tablet(s) Oral QD 07/08/19 021 Inactive Novolog Flexpen U-100 Insulin aspart 100 unit/mL (3 mL) subcutaneous RxNorm: 6196198 Inject 85 Unit(s) Subcutaneous TID 07/08/19 022 Inactive pravastatin 80 mg tablet RxNorm: 047968 Take 1 Tablet(s) Oral QHS every night at bedtime 07/08/19 023 Inactive clotrimazole 1 % topical cream RxNorm: 597430 Apply to bilateral groin areas Topical BID 07/08/19 21 022 Inactive metoprolol succinate ER 200 mg tablet,extended release 24 hr RxNorm: 709921 Take 1 Tablet(s) Oral QD 07/08/19 21 021 Inactive Vitamin D3 25 mcg (1,000 unit) tablet RxNorm: 084540 Take 1 Tablet(s) Oral QD 07/08/19 21 021 Inactive isosorbide dinitrate 30 mg tablet RxNorm: 333755 Take 1 Tablet(s) Oral QD 07/08/19 21 021 Inactive Levemir FlexTouch U-100 Insulin 100 unit/mL (3 mL) subcutaneous pen RxNorm: 723925 Inject 140 Unit(s) Subcutaneous BID 07/08/19 21 021 Inactive torsemide 20 mg tablet RxNorm: 399294 Take 1 Tablet(s) Oral QD 07/08/19 21 023 Inactive venlafaxine 75 mg tablet RxNorm: 426972 Take 1 Tablet(s) Oral QD 07/08/19 21 021 Inactive acetaminophen 500 mg tablet RxNorm: 314952 Take 1 Tablet(s) Oral TID as needed for headache 06/18/19 21 021 Inactive acetaminophen 500 mg tablet RxNorm: 371486 Take 1 Tablet(s) Oral TID as needed for headache 06/18/19 021 Inactive Lyrica 100 mg capsule RxNorm: 761956 Take 1 Capsule(s) Oral QHS every night at bedtime 06/11/19 21 021 Inactive Lyrica 50 mg capsule RxNorm: 529316 Take 1 Capsule(s) Oral QAM every morning 06/10/19 21 021 Inactive hydrocortisone 2.5 % topical cream RxNorm: 572221 Apply to bilateral groin creases Topical BID 05/15/20 20 021 Inactive clotrimazole 1 % topical cream RxNorm: 410819 Apply to bilateral groin areas Topical BID 05/15/20 20 021 Inactive Lyrica 50 mg capsule RxNorm: 449587 Take 1 Capsule(s) Oral QAM every morning 05/14/20 20 020 Inactive Lyrica 100 mg capsule RxNorm: 853328 Take 1 Capsule(s) Oral QHS every night [...] Inactive Nystop 100,000 unit/gram topical powder RxNorm: 656864 Apply to abd folds, under breasts and L side of groin Topical BID x 14 days, then BID PRN 04/08/20 20 Inactive dx: yeast dermatitis Lyrica 100 mg capsule RxNorm: 315045 Take 1 Capsule(s) Oral QHS every night at bedtime 03/13/20 20 Inactive Lyrica 50 mg capsule RxNorm: 464111 Take 1 Capsule(s) Oral QAM every morning 03/13/20 20 Inactive ketoconazole 2 % shampoo RxNorm: 740533 Apply Topical two times a week with showers 03/11/20 20 Inactive cholecalciferol (vitamin D3) 50 mcg (2,000 unit) tablet RxNorm: 261717 Take 1 Tablet(s) Oral QD 03/11/20 20 021 Inactive Zetia 10 mg tablet RxNorm: 846836 Take 1 Tablet(s) Oral QD 03/07/20 20 021 Inactive Zetia 10 mg tablet RxNorm: 790755 Take 1 Tablet(s) Oral QD 03/07/20 20 Inactive Lyrica 50 mg capsule RxNorm: 733201 Take 1 Capsule(s) Oral QAM every morning 02/15/20 20 Inactive Lyrica 100 mg capsule RxNorm: 000287 Take 1 Capsule(s) Oral QHS every night at bedtime 02/15/20 20 Inactive Lyrica 100 mg capsule RxNorm: 007265 Take 1 Capsule(s) Oral QHS every night at bedtime 02/15/20 20 Inactive Lyrica 50 mg capsule RxNorm: 388041 Take 1 Capsule(s) Oral QAM every morning 02/15/20 Inactive metoprolol succinate ER 200 mg tablet,extended release 24 hr RxNorm: 083208 Take 1 Tablet(s) Oral QD 08/11 Activeloperamide 2 mg capsuleRxNorm: 380054Kasb 1 Capsule(s) Oral QID as needed 06/12/2021ctivehydralazine 50 mg tabletRxNorm: 203479Lfzc 1 Tablet(s) Oral QID 08/11/2022ctivevenlafaxine ER 75 mg capsule,extended release 24 hrRxNorm: 752813Gtwk 3 Capsule(s) Oral QD/Inactivepolyethylene glycol 3350 17 gram/dose oral powderRxNorm: 757637Yufj 17=1 capful Gram(s) Oral BID as needed mix with 4-8oz of ynviqq98/Inactiveicosapent ethyl 1 gram capsuleRxNorm: 5452899Yond 2 Capsule(s) (2 gm) Oral BID with meals /InactiveOkay to dispense one 2gm tab if you have that available.Levemir FlexTouch U-100 Insulin 100 unit/mL (3 mL) subcutaneous pen RxNorm: 315472Wqbeqd 80 Unit(s) Subcutaneous BID/Inactive Novolog Flexpen U-100 Insulin aspart 100 unit/mL (3 mL) subcutaneousRxNorm: 0900613Gfqcnd 30 Unit(s) Subcutaneous TID with meals/Inactive Medication Administered No Medication Administered data Reason For Visit No Reason For Visit data Plan of Care Planned Activity Notes Codes Status Date Referral: [facility] WPtel: [address], [address] [id number] [place]ReferralRecords [id number]/08/2023Referral: [facility] WPtel: [address] [facility] [address] [id number]/12/2022Referral: General CardiologyReferralCompleted 1Referral: General PsychologistReferralClosedReferral: General PsychiatristReferralPatient/Family [...] Sister Jyotsna involved in his care cell# [phone] Guardian: Don (tapan met in person 09/01/21), now has Lexii (same group as don)Lab Schedule: /September*September (CBC with diff, CMP, A1c) (Novemebr: CBC, CMP, A1c, Lipids, VitD) 10/08/2023
--- OUTSIDE RECORDS SUMMARY | 2023-11-06 05:48 | XMS_ITS | CCD ---
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 Name Role Phone Arpit ELECTRIC MULE OPERATOR-CHarrison Primary Care Provider Leona vailable Rooks ELECTRIC MULE OPERATOR-C, [facility] Chronic [facility] Management U navailable Summary Purpose DataExchange Insurance Providers Payer name Policy type / Coverage type Covered alliance party ID Effective Begin Date Effective End Date [place] Part B [id number] Unknown Unknown Medicaid [place] Medicare Part B [id number] Unknown Unknown Family history Sister Brittany Suggs [...] Nursing 09/03/[address]: 0725208 Non-Smoker / No History of Smoking 09/02/[address]: 042761399 No Alcohol Consum ption 09/02/2020 Allergies, Adverse Reactions, Alerts Substance Reaction Codes Entered Date Inactivated Date Status * NO KNOWN FOOD ALLERGIES Gnhxuvd7207/13/2023No Inactive DateActiveLISINOPRILRxNorm: 0133165No Inactive DateActiveMetformin GRwUuyszsr84/28/2020No Inactive DateActive* NO KNOWN ENVIRONMENTAL FTFBOEBPTVztafjo10/27/2024No Inactive DateActive Problems Condition Codes Effective Dates Condition St atus Hypokalemia ICD-10: E87.6 ICD-9: 276.806/4ActiveLower extremity edemaICD-10: R60.0 ICD-9: 782.306/ctiveMajor depression, recurrentICD-10: F33.9 ICD-9: 296.3006/ctivePVD (peripheral vascular disease)ICD-10: I73.9 ICD-9: 443.906/ctiveBMI 60.0-69.9, adultICD-10: Z68.44 ICD-9: V85.4405/ctiveCandidal intertrigoICD-10: B37.2 ICD-9: 112.305/ctiveHistory of anemia due to CKDICD-10: N18.9 ICD-9: 585.905/ctiveLearning disabilityICD-10: F81.9 ICD-9: 315.205ctiveParaparesis of both lower limbsICD-10: G82.20 ICD-9: 344.105/ctiveReducible umbilical herniaICD-10: K42.9 ICD-9: 553.105/ctiveSeizure disorderICD-10: G40.909 ICD-9: 345.9005/ctiveCallus of heelICD-10: L84 ICD-9: 55366/esolvedGout due to renal impairmentICD-10: M10.30 ICD-9: 274.1005esolvedHyperhidrosis of palmsICD-10: L74.512 ICD-9: 705.21010/12/2023esolvedHyperlipidemia, unspecifiedICD-10: E78.5 ICD-9: 272.405/esolvedOther long term care phlebotomist (current) drug therapyICD-10: Z79.899 ICD-9: V58.6905/esolvedPain of right heelICD-10: M79.671 ICD-9: 729.505/esolvedStage 2 [...] screening for nutritional disorder ICD-10: Z13.21 ICD-9: V77.9904esolvedImpacted cerumen, left earICD-10: H61.22 ICD-9: 380.404/esolvedShortness of breathICD-10: R06.02 ICD-9: 786.0504/4ResolvedSkin tagICD-10: L91.8 ICD-9: 701.904esolvedCoronary artery disease involving curyung coronary artery of curyung heart, angina presence unspecifiedICD-10: I25.10 ICD-9: 414.0102/4ActiveInappropriate sexual behaviorICD-10: Z72.89 ICD-9: 312.8910ctiveAnnual physical examICD-10: Z00.00 ICD-9: V70.009/ctivePre-op evaluationICD-10: Z01.818 ICD-9: V72.8403ctiveSecondary hypertensionICD-10: I15.9 ICD-9: 405.9903ctiveDepressionICD-10: F32.9 ICD-9: 72315esolvedDVT (deep venous thrombosis)ICD-10: I82.409 ICD-9: 453.40092ResolvedEncounter for [...] to other viral communicable diseasesICD-10: Z20.828 ICD-9: V01.79028914IllzfuzeRgxrcnzdWkjoxdc16/28/2020ActiveDiabetes mellitus Type 2Vcqrgha99/28/2020ActiveAnemia in chronic kidney diseaseICD-10: D63.1 02/12/2020ResolvedHyperlipidemia, unspecifiedICD-10: E78.Resolved Medications Medication Codes Instructions Start Date Stop Date Status Fill Instructions torsemide 20 mg tablet RxNorm: 090214 Take 1 Tablet(s) Oral QD 10/26/19 24 024 Active potassium chloride ER 20 mEq tablet,extended release RxNorm: 19800522 Take 2 Tablet(s) Oral BID 10/26/19 24 025 Active torsemide 20 mg tablet RxNorm: 782799 Take 1 Tablet(s) Oral QD 10/26/19 24 024 Inactive potassium chloride ER 20 mEq tablet,extended release RxNorm: 19800522 Take 2 Tablet(s) Oral BID 10/26/19 24 Inactive Artificial Tears (PF) 0.1 %-0.3 % drops in a dropperette RxNorm: 198464 Apply 1-2 Drop(s) Both eyes BID as needed 09/28/19 24 025 Active erythromycin 5 mg/gram (0.5 %) eye ointment RxNorm: 609102 Apply 1 Application Both eyes QHS every night at bedtime Instill ~1 cm ribbon into affected eye 09/28/19 24 024 Inactive Artificial Tears (PF) 0.1 %-0.3 % drops in a dropperette RxNorm: 688302 Apply 1-2 Drop(s) Both eyes BID as needed 09/28/19 24 024 Inactive erythromycin 5 mg/gram (0.5 %) eye ointment RxNorm: 422412 Apply 1 Application Both eyes QHS every night at bedtime Instill ~1 cm ribbon into affected eye 09/28/19 24 024 Inactive acetaminophen 500 mg tablet RxNorm: 218609 (MAX APAP:4GM/24HR) Take 1 Tablet(s) Oral TID as needed for pain 09/24/19 24 024 Inactive carvedilol 25 mg tablet RxNorm: 885703 Take 1 Tablet(s) Oral QD 09/08/19 24 No Stop Date Active pregabalin 100 mg capsule RxNorm: 038833 Take 1 Capsule(s) Oral QAM every morning 09/07/19 24 024 Active rosuvastatin 40 mg tablet RxNorm: 450633 Take 1 Tablet(s) Oral QPM every evening 07/13/19 24 No Stop Date Active ezetimibe 10 mg tablet RxNorm: 497086 Take 1 Tablet(s) Oral QD 07/13/19 24 No Stop Date Active bisacodyl 10 mg rectal suppository RxNorm: 939617 Insert 1 Suppository Rectal QD as needed 07/13/19 24 No Stop Date Active polyethylene glycol 3350 17 gram/dose oral powder RxNorm: 964937 Take 17 Gram(s) Oral BID as needed mix in 4-8ox water 07/13/19 24 No Stop Date Active ketoconazole 2 % shampoo RxNorm: 501078 Apply 1 Application Topical UD as directed 07/13/19 24 No Stop Date Active aripiprazole 15 mg tablet RxNorm: 538990 Take 1/2 Tablet(s) Oral QD 07/13/19 24 No Stop Date Active Ozempic 1 mg/dose (4 mg/3 mL) subcutaneous pen injector RxNorm: 6250548 Inject 1 Milligram(s) Subcutaneous QW once a week 07/13/19 24 No Stop Date Active Guaifenesin AC 10 mg-100 mg/5 mL oral liquid RxNorm: 123147 Take 10 Milliliter(s) Oral Q4H every four hours as needed 07/13/19 24 No Stop Date Active isosorbide mononitrate ER 60 mg tablet,extended release 24 hr RxNorm: 450935 Take 1 Tablet(s) Oral QD 07/13/19 24 No Stop Date Active ammonium lactate 12 % topical cream RxNorm: 514904 Apply 1 Application Topical BID 07/13/19 24 No Stop Date Active hydrocortisone 2.5 % topical cream RxNorm: 873473 Apply 1 Application Topical BID as needed 07/13/19 24 No Stop Date Active rosuvastatin 20 mg sprinkle capsule RxNorm: 0611510 Take 1 Capsule(s) Oral QD 07/13/19 24 No Stop Date Active Vascepa 1 gram capsule RxNorm: 2341186 Take 2 Capsule(s) Oral BID 07/13/19 24 No Stop Date Active venlafaxine ER 75 mg capsule,extended release 24 hr RxNorm: 224795 Take 3 Capsule(s) Oral QD 07/13/19 24 No Stop Date Active Basaglar KwikPen U-100 Insulin 100 unit/mL (3 mL) subcutaneous RxNorm: 7389797 Inject 30U SubQ twice daily 07/07/19 24 025 Active Please dispense one month supply. Basaglar KwikPen U-100 Insulin 100 unit/mL (3 mL) subcutaneous RxNorm: 0526869 Inject 30U SubQ twice daily 07/07/19 24 024 Inactive Please dispense one month supply. pregabalin 150 mg capsule RxNorm: 498768 Take 1 Capsule(s) Oral QHS every night at bedtime 07/05/19 24 024 Active pregabalin 150 mg capsule RxNorm: 778925 Take 1 Capsule(s) Oral QHS every night at bedtime 07/05/19 24 024 Inactive polyethylene glycol 3350 17 gram/dose oral powder RxNorm: 208309 Take 1 Packet Oral QD as needed (1 packet = 17g) mix with 4-8oz of liquid 06/15/19 24 024 Inactive bisacodyl 10 mg rectal suppository RxNorm: 205178 Insert one suppository per rectum once daily as needed for constipation 06/15/19 24 024 Inactive bisacodyl 10 mg rectal suppository RxNorm: 546947 Insert one suppository per rectum once daily as needed for constipation 06/15/19 24 024 Inactive pregabalin 100 mg capsule RxNorm: 431470 Take 1 Capsule(s) Oral QAM every morning 04/27/20 23 024 Inactive Levemir FlexPen 100 unit/mL (3 mL) solution subcutaneous insulin pen RxNorm: 322719 Inject 30 Unit(s) Subcutaneous BID 04/27/20 024 Inactive rosuvastatin 40 mg tablet RxNorm: 619965 Take 1 Tablet(s) Oral QPM every evening 04/16/20 024 Inactive D/C rosuvastatin 20mg venlafaxine ER 75 mg capsule,extended release 24 hr RxNorm: 251411 Take 3 Capsule(s) Oral QD 04/14/20 023 Inactive pregabalin 100 mg capsule RxNorm: 092114 Take 1 Capsule(s) Oral QAM every morning [...] meter clotrimazole 1 % topical cream RxNorm: 327001 Take apply topically to abdominal folds twice daily for 14 days 03/12/20 024 Inactive Ozempic 1 mg/dose (4 mg/3 mL) subcutaneous pen injector RxNorm: 6792545 Inject 1 Milligram(s) Subcutaneous QW once a week 03/11/20 023 Inactive rosuvastatin 20 mg tablet RxNorm: 654424 Take 1 Tablet(s) Oral QD 02/26/20 023 Inactive d/c pravastatin 80mg Ozempic 1 mg/dose (4 mg/3 mL) subcutaneous pen injector RxNorm: 8364369 Inject 1 Milligram(s) Subcutaneous QW once a week 02/20/20 023 Inactive pregabalin 150 mg capsule RxNorm: 780115 Take 1 Capsule(s) Oral HS at bed time 02/19/20 23 023 Inactive pregabalin 100 mg capsule RxNorm: 737222 Take 1 Capsule(s) Oral QAM every morning 02/18/20 023 Inactive venlafaxine ER 75 mg capsule,extended release 24 hr RxNorm: 208662 Take 3 Capsule(s) Oral QD 02/04/20 23 023 Inactive FreeStyle Chema 2 Sensor kit RxNorm: use as directed 02/04/20 23 023 Inactive FreeStyle Chema 2 Sensor kit RxNorm: use as directed 02/04/20 024 Inactive fluconazole 150 mg tablet RxNorm: 950702 Take 1 Tablet(s) Oral on day 3 and on day 6 02/03/20 024 Active chlorthalidone 25 mg tablet RxNorm: 261207 Take 1 Tablet(s) Oral QAM every morning 02/03/20 No Stop Date Active venlafaxine ER 150 mg capsule,extended release 24 hr RxNorm: 232630 Take 1 Capsule(s) Oral QD 02/03/20 023 Inactive acetaminophen 500 mg tablet RxNorm: 400194 1 TABLET ORALLY 3 TIMES DAILY (MAX APAP:4GM/24HR) 12/15/19 23 023 Inactive clotrimazole 1 % topical cream RxNorm: 039106 apply 1g topically to top of feet and in between toes BID 12/09/19 23 023 Inactive potassium chloride ER 20 mEq tablet,extended release RxNorm: 175340 Take 1 Tablet(s) Oral BID 12/09/19 024 Inactive d/c 20mEq once daily (sent from hospital) nystatin 100,000 unit/gram topical powder RxNorm: 626633 APPLY TO AFFECTED AREAS TOPICALLY 2 TIMES DAILY 11/21/19 23 024 Inactive Nystop 100,000 unit/gram topical powder RxNorm: 729779 Apply to abd folds, under breasts and L side of groin Topical BID x 14 days, then BID PRN 11/20/19 23 023 Inactive dx: yeast dermatitis [place] Ultra Strength 4 %-30 %-10 % topical cream RxNorm: 972036 Apply 1 Gram(s) Topical QID PRN to feet and legs for neuropathic pain 11/11/19 23 024 Inactive clotrimazole 1 % topical cream RxNorm: 620324 Apply 1/2 Gram(s) Topical BID Apply to affected areas of groin, periarea, and abdominal topically 2 times daily 11/10/19 23 023 Inactive hydrocortisone 2.5 % topical cream RxNorm: 994012 Apply 1/2 Gram(s) Topical BID as needed 11/10/19 024 Inactive Humulin R U-500 (Concentrated) Insulin 500 unit/mL subcutaneous soln RxNorm: 649190 Inject 100 Unit(s) Subcutaneous TID 10/07/19 024 Inactive Levemir FlexPen 100 unit/mL (3 mL) solution subcutaneous insulin pen RxNorm: 080699 Inject 30 Unit(s) Subcutaneous BID 10/07/19 023 Inactive Ozempic 0.25 mg or 0.5 mg (2 mg/3 mL) subcutaneous pen injector RxNorm: 2727712 Inject 1/2 Milligram(s) Subcutaneous QW once a week 10/07/19 024 Inactive aripiprazole 15 mg tablet RxNorm: 663834 1/2 TAB (7.5MG) ORALLY DAILY (DX:MAJOR DEPRESSIVE DISORDER) 09/23/19 023 Inactive Lancets,Thin 28 gauge RxNorm: Use 1 as directed QID 09/15/19 23 024 Inactive Accu-Chek Guide test strips RxNorm: Use 1 Test Strip QID 09/15/19 23 023 Inactive ok to substitute with any covered alternative test strip torsemide 20 mg tablet RxNorm: 615828 Take 1 Tablet(s) Oral BID 09/09/19 23 024 Inactive d/c once daily dosing carvedilol 25 mg tablet RxNorm: 100856 Take 1 Tablet(s) Oral QD 08/25/19 23 024 Inactive pregabalin 150 mg capsule RxNorm: 552738 1 Capsule(s) Oral HS at bed time 08/18/19 023 Inactive pregabalin 100 mg capsule RxNorm: 130532 1 Capsule(s) Oral QAM every morning 08/18/19 023 Inactive carvedilol 25 mg tablet RxNorm: 651590 1 Tablet(s) Oral QD 07/28/19 23 023 Inactive lisinopril 20 mg tablet RxNorm: 087842 Give 1 Tablet(s) Oral QD 07/28/19 23 023 Inactive Lyrica 150 mg capsule RxNorm: 699934 Take 1 Capsule(s) Oral QHS every night at bedtime 07/19/19 23 023 Inactive d/c 100mg dose Diflucan 150 mg tablet RxNorm: 681295 Take 1 Tablet(s) Oral QD repeat on day 3 and 6 07/19/19 23 023 Inactive pregabalin 100 mg capsule RxNorm: 606094 Take 1 Capsule(s) Oral QAM every morning 07/19/19 023 Inactive gatifloxacin 0.5 % eye drops RxNorm: 300234 Instill 1 Drop(s) as directed TID Instill 1 drop in to affected eye(s) starting 1 day prior to surgery and continue until gone (do not exceed 4 weeks). 07/13/19 23 023 Inactive carvedilol 25 mg tablet RxNorm: 353037 2 Tablet(s) Oral BID 07/13/19 23 023 Inactive Humulin R Regular U-100 Insulin 100 unit/mL injection solution RxNorm: 229960 85 Unit(s) Injection TID 07/13/19 23 023 Inactive ketorolac 0.5 % eye drops RxNorm: 977782 Instill 1 Drop(s) as directed QID Instill 1 drop into affected eye(s) 4 times daily starting 1 day prior to surgery and continue until gone (do not exceed 4 weeks). 07/13/19 23 023 Inactive Diflucan 150 mg tablet RxNorm: 515535 Take 1 Tablet(s) Oral QD repeat on day 3 and 6 06/30/19 23 023 Inactive Accu-Chek Guide test strips RxNorm: Use 1 Test Strip QID Use 1 test strip to monitor blood glucose 4 times daily and as needed. Dx:E11.42. 06/23/19 23 023 Inactive ok to substitute with any covered alternative test strip dextromethorphan-gu aifenesin 10 mg-100 mg/5 mL oral liquid RxNorm: 673514 Take 10 Milliliter(s) Oral every 4 hours as needed for cough 06/19/19 023 Inactive dextromethorphan-gu aifenesin 10 mg-100 mg/5 mL oral liquid RxNorm: 180086 Take 10 Milliliter(s) Oral every 4 hours as needed for cough 06/19/19 023 Inactive Lyrica 150 mg capsule RxNorm: 041344 Take 1 Capsule(s) Oral QHS every night at bedtime 06/18/19 023 Inactive d/c 100mg dose aripiprazole 15 mg tablet RxNorm: 374685 1/2 TAB (7.5MG) ORALLY DAILY (DX:MAJOR DEPRESSIVE DISORDER) 06/05/19 023 Inactive pregabalin 100 mg capsule RxNorm: 060449 1 Capsule(s) Oral QAM every morning 06/02/19 023 Inactive Banophen 50 mg capsule RxNorm: 5479173 Take 1 Capsule(s) Oral Q6H every 6 hours as needed 05/19/19 23 No Stop Date Active Novolog Flexpen U-100 Insulin aspart 100 unit/mL (3 mL) subcutaneous RxNorm: 9788616 Inject 10 Unit(s) Subcutaneous QHS every night at bedtime with nighttime snack 04/08/20 022 Inactive Novolog Flexpen U-100 Insulin aspart 100 unit/mL (3 mL) subcutaneous RxNorm: 4575094 Inject 42 Unit(s) Subcutaneous TID in addition to sliding scale 04/08/20 22 022 Inactive d/c 36u albuterol sulfate HFA 90 mcg/actuation aerosol inhaler RxNorm: 0624887 Take 2 Puff(s) Inhalation Q4H every four hours as needed as needed for SOB, cough, or wheezing 04/07/20 22 030 Active Banophen 50 mg capsule RxNorm: 5221780 Take 1 Capsule(s) Oral Q6H every 6 hours as needed 04/06/20 023 Inactive diphenhydramine 50 mg tablet RxNorm: 2403941 Take 1 Tablet(s) Oral Q6H every 6 hours as needed 04/06/20 22 022 Inactive diphenhydramine 50 mg tablet RxNorm: 3294199 1 Tablet(s) Oral Q6H every 6 hours as needed 04/06/20 22 022 Inactive Abilify 15 mg tablet RxNorm: 500255 1/2 Tablet(s) Oral QD 03/10/20 22 023 Inactive Shingrix (PF) 50 mcg/0.5 mL intramuscular suspension, kit RxNorm: 3996943 Administer 1/2 Milliliter(s) Intramuscular QD one time shingrix step 2 ( step 1 given 11/04/21) WITH needle - Nursing please administer upon arrival and once administered post a bridge message with date of administration, post partum nurse, expiration date, and lot# so we can update [facility] 02/18/20 22 022 Inactive dispense with needle Shingrix (PF) 50 mcg/0.5 mL intramuscular suspension, kit RxNorm: 2799372 Administer 1/2 Milliliter(s) Intramuscular QD one time shingrix step 2 ( step 1 given 11/04/21) WITH needle - Nursing please administer upon arrival and once administered post a bridge message with date of administration, post partum nurse, expiration date, and lot# so we can update [facility] 02/18/20 22 022 Inactive dispense with needle polyethylene glycol 3350 17 gram/dose oral powder RxNorm: 489756 Take 17=1 capful Gram(s) Oral QD mix with 4-8oz of liquid 01/08/20 22 023 Inactive take this in addition to BID prn order Lyrica 100 mg capsule RxNorm: 233173 Take 1 Capsule(s) Oral QAM every morning 01/08/20 22 022 Inactive d/c 50mg dose acetaminophen 500 mg tablet RxNorm: 831500 Take 1 Tablet(s) Oral TID 01/08/20 22 022 Inactive d/c PRN order Lyrica 150 mg capsule RxNorm: 257144 Take 1 Capsule(s) Oral QHS every night at bedtime 01/08/20 22 023 Inactive d/c 100mg dose Abilify 5 mg tablet RxNorm: 784437 Take 1 Tablet(s) Oral QD take 1 tab po QD #30 refill 5 dx: MDD 12/12/19 22 022 Inactive Abilify 5 mg tablet RxNorm: 475800 Take 1 Tablet(s) Oral QD take 1 tab po QD #30 refill 5 dx: MDD 12/12/19 22 022 Inactive Novolog Flexpen U-100 Insulin aspart 100 unit/mL (3 mL) subcutaneous RxNorm: 8748845 Inject 42 Unit(s) Subcutaneous TID in addition to sliding scale 12/10/19 22 022 Inactive d/c 36u chlorthalidone 25 mg tablet RxNorm: 803735 Take 1 Tablet(s) Oral QAM every morning 12/10/19 22 023 Inactive pregabalin 50 mg capsule RxNorm: 648104 Take 1 Capsule(s) Oral QAM every morning 11/12/19 22 022 Inactive tetanus-diphtheria toxoids-Td 2 Lf unit-2 Lf unit/0.5 mL IM suspension RxNorm: 139 Take 0.5 Miscellaneous Intramuscular 11/12/19 22 022 Inactive need tdap - nursing to administer upon arrival pregabalin 50 mg capsule RxNorm: 546391 Take 1 Capsule(s) Oral QAM every morning 10/16/19 22 022 Inactive pregabalin 50 mg capsule RxNorm: 353125 Take 1 Capsule(s) Oral QAM every morning 10/16/19 22 022 Inactive pregabalin 50 mg capsule RxNorm: 400931 1 Capsule(s) Oral QAM every morning 10/15/19 22 022 Inactive Shingrix (PF) 50 mcg/0.5 mL intramuscular suspension, kit RxNorm: 8790455 Administer 1/2 Milliliter(s) Intramuscular one time Nursing please administer upon arrival and once administered post a bridge message with date of administration, post partum nurse, expiration date, and lot# so we can update [facility]. 10/09/19 22 022 Inactive shingrix step 1 Shingrix (PF) 50 mcg/0.5 mL intramuscular suspension, kit RxNorm: 7186111 Administer 1/2 Milliliter(s) Intramuscular one time Nursing please administer upon arrival and once administered post a bridge message with date of administration, post partum nurse, expiration date, and lot# so we can update [facility]. 10/09/19 22 Inactive shingrix step 1 cholecalciferol (vitamin D3) 1,250 mcg (50,000 unit) capsule RxNorm: 195166 Take 1 Capsule(s) Oral QW once a [...] aspart 100 unit/mL (3 mL) subcutaneous RxNorm: 8716022 Inject 10 Unit(s) Subcutaneous QHS every night at bedtime with nighttime snack 10/08/19 22 Inactive Shingrix (PF) 50 mcg/0.5 mL intramuscular suspension, kit RxNorm: 8226881 ADMINISTER 2-DOSE SERIES PER CDC GUIDELINES 10/08/19 22 Active Shingrix (PF) 50 mcg/0.5 mL intramuscular suspension, kit RxNorm: 4031234 ADMINISTER 2-DOSE SERIES PER CDC GUIDELINES 10/08/19 22 022 Inactive Novolog Flexpen U-100 Insulin aspart 100 unit/mL (3 mL) subcutaneous RxNorm: 2079893 Inject 36 Unit(s) Subcutaneous TID in addition to sliding scale 10/08/19 22 Inactive Novofine Autocover 30 gauge x 1/3 needle RxNorm: Use 1 Miscellaneous UD as directed Use 1 needle as directed to administer insulin 5 times a day Dx:E11.42. 10/03/19 22 Inactive ok to substitute with any covered alternative pen needle benzoyl peroxide 10 % topical cleanser RxNorm: 923333 Apply 1 Application Topical QD apply to face, wash rinse and dry once daily (may change to QOD if drying) 08/19/19 22 022 Inactive (%covered by insurance) #60ml refill 11 dx: acne benzoyl peroxide 10 % topical cleanser RxNorm: 261235 Apply 1 Application Topical QD apply to face, wash rinse and dry once daily (may change to QOD if drying) 08/19/19 22 022 Inactive (%covered by insurance) #60ml refill 11 dx: acne benzoyl peroxide 10 % topical cleanser RxNorm: 716217 Apply 1 Application Topical QD apply to face, wash rinse and dry once daily (may change to QOD if drying) 08/19/19 22 022 Inactive (%covered by insurance) #60ml refill 11 dx: acne Lyrica 50 mg capsule RxNorm: 287271 Take 1 Capsule(s) Oral QAM every morning Take 1 capsule by mouth once daily 08/19/19 22 022 Inactive benzoyl peroxide 10 % topical cleanser RxNorm: 123713 Apply 1 Application Topical QD apply to [...] 022 Inactive Lyrica 100 mg capsule RxNorm: 073890 Take 1 Capsule(s) Oral QHS every night at bedtime Take 1 capsule by mouth once daily at bedtime 08/16/19 22 022 Inactive Lyrica 50 mg capsule RxNorm: 426933 Take 1 Capsule(s) Oral QAM every morning Take 1 capsule by mouth once daily 08/16/19 22 Inactive Levemir FlexTouch U-100 Insulin 100 unit/mL (3 mL) subcutaneous pen RxNorm: 460673 Inject 86 Unit(s) Subcutaneous BID 08/05/19 22 022 Inactive d/c 83units BID Lyrica 100 mg capsule RxNorm: 238513 Take 1 Capsule(s) Oral QHS every night at bedtime Take 1 capsule by mouth once daily at bedtime 07/14/19 22 022 Inactive Lyrica 50 mg capsule RxNorm: 120130 Take 1 Capsule(s) Oral QAM every morning Take 1 capsule by mouth once daily 07/14/19 22 022 Inactive Levemir FlexTouch U-100 Insulin 100 unit/mL (3 mL) subcutaneous pen RxNorm: 101152 Inject 83 Unit(s) Subcutaneous BID 07/08/19 22 [...] test strip hydralazine 50 mg tablet RxNorm: 130426 Take 1 Tablet(s) Oral QID 05/05/20 Inactive venlafaxine ER 225 mg tablet,extended release 24 hr RxNorm: 135491 Take 1 Tablet(s) Oral QD 05/05/20 Inactive venlafaxine ER 225 mg tablet,extended release 24 hr RxNorm: 822267 Take 1 Tablet(s) Oral QD 05/05/20 022 Inactive isosorbide mononitrate ER 30 mg tablet,extended release 24 hr RxNorm: 796288 Take 1 Tablet(s) Oral QD 05/05/20 024 Inactive hydralazine 50 mg tablet RxNorm: 866039 Take 1 Tablet(s) Oral QID 05/05/20 Inactive aspirin 81 mg tablet,delayed release RxNorm: 163752 Take 1 Tablet(s) Oral QD 03/31/20 022 Inactive Vitamin D2 1,250 mcg (50,000 unit) capsule RxNorm: 3877171 Take 1 Capsule(s) Oral QW once a week x 12 weeks 03/31/20 022 Inactive Vitamin D2 1,250 mcg (50,000 unit) capsule RxNorm: 9162682 Take 1 Capsule(s) Oral QW once a week 03/31/20 021 Inactive Zetia 10 mg tablet RxNorm: 736044 Take 1 Tablet(s) Oral QD 03/31/20 024 Inactive Zetia 10 mg tablet RxNorm: 124429 Take 1 Tablet(s) Oral QD 03/31/20 021 Inactive hydralazine 25 mg tablet RxNorm: 139560 Take 1 Tablet(s) Oral QID 03/31/20 21 021 Inactive hydralazine 25 mg tablet RxNorm: 335575 Take 1 Tablet(s) Oral QID 03/31/20 021 Inactive hydralazine 10 mg tablet RxNorm: 415887 Take 1 Tablet(s) Oral QID 03/03/20 021 Inactive cephalexin 500 mg tablet RxNorm: 027080 Take 1 Tablet(s) Oral QID 02/27/20 021 Inactive cephalexin 500 mg tablet RxNorm: 831536 Take 1 Tablet(s) Oral QID 02/27/20 021 Inactive lisinopril 40 mg tablet RxNorm: 008689 Take 1 Tablet(s) Oral QD 02/11/20 023 Inactive Eliquis 5 mg tablet RxNorm: 1539354 Take 1 Tablet(s) Oral BID 01/05/20 21 022 Inactive Eliquis 5 mg tablet RxNorm: 2779030 Take 2 Tablet(s) Oral QD 01/01/20 21 021 Inactive Lyrica 50 mg capsule RxNorm: 837806 Take 1 Capsule(s) Oral QAM every morning 12/24/19 021 Inactive Lyrica 100 mg capsule RxNorm: 214829 Take 1 Capsule(s) Oral QHS every night at bedtime 12/24/19 021 Inactive clotrimazole 1 % topical cream RxNorm: 521987 Apply to right foot and toes Topical BID 12/04/19 21 023 Inactive metoprolol succinate ER 200 mg tablet,extended release 24 hr RxNorm: 386844 Take 1 Tablet(s) Oral QD 12/04/19 023 Inactive ciprofloxacin 500 mg tablet RxNorm: 018684 Take 1 Tablet(s) Oral QD 11/30/19 21 021 Inactive DX ofloxacin otic drops Accu-Chek Guide test strips RxNorm: USE 1 TO CHECK GLUCOSE 4 TIMES DAILY AND NEEDED 11/15/19 21 023 Inactive Blood Glucose Test strips RxNorm: Use 1 Test Strip QID at PRN 11/05/19 21 023 Inactive E11.42 lisinopril 30 mg tablet RxNorm: 508498 Take 1 Tablet(s) Oral QD 10/30/19 21 021 Inactive lisinopril 20 mg tablet RxNorm: 667976 Take 1 Tablet(s) Oral QD 10/23/19 21 021 Inactive lisinopril 20 mg tablet RxNorm: 077860 Take 1 Tablet(s) Oral QD 10/23/19 21 021 Inactive lisinopril 10 mg tablet RxNorm: 473506 Take 1 Tablet(s) Oral QD 10/02/19 21 021 Inactive icosapent ethyl 1 gram capsule RxNorm: 0744686 Take 2 Capsule(s) (2 gm) Oral BID with meals 09/12/19 024 Inactive Okay to dispense one 2gm tab if you have that available. icosapent ethyl 1 gram capsule RxNorm: 7541491 Take 2 Capsule(s) Oral BID 09/12/19 21 021 Inactive Okay to dispense one 2gm tab if you have that available. amlodipine 10 mg tablet RxNorm: 074959 Take 1 Tablet(s) Oral QD 09/04/19 21 022 Inactive aspirin 81 mg tablet,delayed release RxNorm: 738360 Take 1 Tablet(s) Oral QD 09/04/19 21 021 Inactive Levemir FlexTouch U-100 Insulin 100 unit/mL (3 mL) subcutaneous pen RxNorm: 272094 Inject 150 Unit(s) Subcutaneous BID 09/04/19 21 022 Inactive venlafaxine ER 150 mg tablet,extended release 24 hr RxNorm: 122870 Take 1 Tablet(s) Oral QD 09/04/19 21 021 Inactive clotrimazole-betame thasone 1 %-0.05 % topical cream RxNorm: 230091 Apply to rash on red area on left abdomen/chest Topical BID 08/10/19 21 021 Inactive amlodipine 5 mg tablet RxNorm: 918952 Take 1 Tablet(s) Oral QD 07/31/19 21 021 Inactive cephalexin 500 mg tablet RxNorm: 262458 Take 1 Tablet(s) Oral BID BID - Twice Daily 07/31/19 21 021 Inactive Start 08/01/20 pantoprazole 40 mg tablet,delayed release RxNorm: 959202 Take 1 Tablet(s) Oral QAM every morning 07/08/19 022 Inactive senna 8.6 mg tablet RxNorm: 837502 Take 1 Tablet(s) Oral QD 07/08/19 022 Inactive carbamazepine 200 mg tablet RxNorm: 030208 Take 1 Tablet(s) Oral BID 07/08/19 022 Inactive clopidogrel 75 mg tablet RxNorm: 453403 Take 1 Tablet(s) Oral QD 07/08/19 021 Inactive Blood Glucose Test strips RxNorm: Use 1 Test Strip QID at PRN 07/08/19 21 Inactive E11.42 Novolog Flexpen U-100 Insulin aspart 100 unit/mL (3 mL) subcutaneous RxNorm: 3966870 Administer per sliding scale Milliliter(s) Subcutaneous TID 151-200: 10 u; 201-250: 20 u; 251-300: 30 u; 301-350: 40 u; 351-400: 50 u. 07/08/19 022 Inactive lisinopril 5 mg tablet RxNorm: 747852 Take 1 Tablet(s) Oral QD 07/08/19 021 Inactive Novolog Flexpen U-100 Insulin aspart 100 unit/mL (3 mL) subcutaneous RxNorm: 2614208 Inject 85 Unit(s) Subcutaneous TID 07/08/19 022 Inactive pravastatin 80 mg tablet RxNorm: 844352 Take 1 Tablet(s) Oral QHS every night at bedtime 07/08/19 023 Inactive clotrimazole 1 % topical cream RxNorm: 228984 Apply to bilateral groin areas Topical BID 07/08/19 21 022 Inactive metoprolol succinate ER 200 mg tablet,extended release 24 hr RxNorm: 086195 Take 1 Tablet(s) Oral QD 07/08/19 21 021 Inactive Vitamin D3 25 mcg (1,000 unit) tablet RxNorm: 591897 Take 1 Tablet(s) Oral QD 07/08/19 21 021 Inactive isosorbide dinitrate 30 mg tablet RxNorm: 428916 Take 1 Tablet(s) Oral QD 07/08/19 21 021 Inactive Levemir FlexTouch U-100 Insulin 100 unit/mL (3 mL) subcutaneous pen RxNorm: 631188 Inject 140 Unit(s) Subcutaneous BID 07/08/19 21 021 Inactive torsemide 20 mg tablet RxNorm: 087112 Take 1 Tablet(s) Oral QD 07/08/19 21 023 Inactive venlafaxine 75 mg tablet RxNorm: 209644 Take 1 Tablet(s) Oral QD 07/08/19 21 021 Inactive acetaminophen 500 mg tablet RxNorm: 506931 Take 1 Tablet(s) Oral TID as needed for headache 06/18/19 21 021 Inactive acetaminophen 500 mg tablet RxNorm: 058218 Take 1 Tablet(s) Oral TID as needed for headache 06/18/19 021 Inactive Lyrica 100 mg capsule RxNorm: 480825 Take 1 Capsule(s) Oral QHS every night at bedtime 06/11/19 21 021 Inactive Lyrica 50 mg capsule RxNorm: 510783 Take 1 Capsule(s) Oral QAM every morning 06/10/19 21 021 Inactive hydrocortisone 2.5 % topical cream RxNorm: 221787 Apply to bilateral groin creases Topical BID 05/15/20 20 021 Inactive clotrimazole 1 % topical cream RxNorm: 898057 Apply to bilateral groin areas Topical BID 05/15/20 20 021 Inactive Lyrica 50 mg capsule RxNorm: 153935 Take 1 Capsule(s) Oral QAM every morning 05/14/20 20 020 Inactive Lyrica 100 mg capsule RxNorm: 725128 Take 1 Capsule(s) Oral QHS every night [...] Inactive Nystop 100,000 unit/gram topical powder RxNorm: 721938 Apply to abd folds, under breasts and L side of groin Topical BID x 14 days, then BID PRN 04/08/20 20 Inactive dx: yeast dermatitis Lyrica 100 mg capsule RxNorm: 156828 Take 1 Capsule(s) Oral QHS every night at bedtime 03/13/20 20 Inactive Lyrica 50 mg capsule RxNorm: 159999 Take 1 Capsule(s) Oral QAM every morning 03/13/20 20 Inactive ketoconazole 2 % shampoo RxNorm: 085995 Apply Topical two times a week with showers 03/11/20 20 Inactive cholecalciferol (vitamin D3) 50 mcg (2,000 unit) tablet RxNorm: 095747 Take 1 Tablet(s) Oral QD 03/11/20 20 021 Inactive Zetia 10 mg tablet RxNorm: 960651 Take 1 Tablet(s) Oral QD 03/07/20 20 021 Inactive Zetia 10 mg tablet RxNorm: 067704 Take 1 Tablet(s) Oral QD 03/07/20 20 Inactive Lyrica 50 mg capsule RxNorm: 094750 Take 1 Capsule(s) Oral QAM every morning 02/15/20 20 Inactive Lyrica 100 mg capsule RxNorm: 401389 Take 1 Capsule(s) Oral QHS every night at bedtime 02/15/20 20 Inactive Lyrica 100 mg capsule RxNorm: 672553 Take 1 Capsule(s) Oral QHS every night at bedtime 02/15/20 20 Inactive Lyrica 50 mg capsule RxNorm: 323438 Take 1 Capsule(s) Oral QAM every morning 02/15/20 Inactive metoprolol succinate ER 200 mg tablet,extended release 24 hr RxNorm: 472173 Take 1 Tablet(s) Oral QD 08/11 Activeloperamide 2 mg capsuleRxNorm: 426951Doqt 1 Capsule(s) Oral QID as needed 06/12/2021ctivehydralazine 50 mg tabletRxNorm: 365470Wyjl 1 Tablet(s) Oral QID 08/11/2022ctivevenlafaxine ER 75 mg capsule,extended release 24 hrRxNorm: 075654Yejs 3 Capsule(s) Oral QD/Inactivepolyethylene glycol 3350 17 gram/dose oral powderRxNorm: 820638Eamu 17=1 capful Gram(s) Oral BID as needed mix with 4-8oz of iiakai43/Inactiveicosapent ethyl 1 gram capsuleRxNorm: 9246001Ezhv 2 Capsule(s) (2 gm) Oral BID with meals /InactiveOkay to dispense one 2gm tab if you have that available.Levemir FlexTouch U-100 Insulin 100 unit/mL (3 mL) subcutaneous pen RxNorm: 408056Ztpryq 80 Unit(s) Subcutaneous BID/Inactive Novolog Flexpen U-100 Insulin aspart 100 unit/mL (3 mL) subcutaneousRxNorm: 4650144Rpmhnr 30 Unit(s) Subcutaneous TID with meals/Inactive Medication Administered No Medication Administered data Reason For Visit No Reason For Visit data Plan of Care Planned Activity Notes Codes Status Date Referral: [facility] WPtel: [address], [address] [id number] USReferralRecords Emwlxpam19/08/2023Referral: [facility] WPtel: [address] [id number]/12/2022Referral: General CardiologyReferralCompleted 1Referral: General PsychologistReferralClosedReferral: General PsychiatristReferralPatient/Family [...] [facility] to have closer nursing attention. Sister Jyotsna involved in his care cell# [phone] Guardian: Don (tapan met in person 09/01/21), now has Lexii (same group as don)Lab Schedule: /September*September (CBC with diff, CMP, A1c) March: (CBC, CMP, A1c, Lipids, VitD)5.: CBC, CMP Na 139, K2.6L, creat 1.45H, eGFR 54L, BG 513H, A1c, VitD 32. 6.: BMP Na 140, K3.7, BG 397 H. BUN 24H, Creat 1.09, eGFR 76L. 6.: ER labs CBC, CMP K 3.9 Creat 1.0 eGFR 84 BG 395H 11/04/2023
--- OUTSIDE RECORDS SUMMARY | 2023-12-27 06:07 | XMS_ITS | CCD ---
Author Name Cecilio Durham feliberto Address [address] [facility] [address] [facility] [address] [place] [address] Phone Organization [facility] Phone Care Team Providers Care Respiratory Tech Name Role Phone Harrison Durham Primary Care Provider Leona vailable Harrison Durham Chronic Care Management U navailable Summary Purpose DataExchange Insurance Providers Payer name Policy type / Coverage type Covered constitution party ID Effective Begin Date Effective End Date Medicare [place] Medicare Part B [id number] Unknown Unknown [place] Medicare Part B [id number] Unknown Unknown Family history Sister Brittany Suggs [...] Unknown Residential 09/03/[address]: 4959326 Non-Smoker / No History of Smoking 09/02/[address]: 720627803 No Alcohol Consum ption 09/02/2020 Allergies, Adverse Reactions, Alerts Substance Reaction Codes Entered Date Inactivated Date Status * NO KNOWN FOOD ALLERGIES Keluqpn7107/13/2023No Inactive DateActiveLISINOPRILRxNorm: 8904337No Inactive DateActiveMetformin HNlMcglosq19/28/2020No Inactive DateActive* NO KNOWN ENVIRONMENTAL ZCVWYNRVRRwftrqp29/27/2024No Inactive DateActive Problems Condition Codes Effective Dates Condition St atus Hypokalemia ICD-10: E87.6 ICD-9: 276.806/4ActiveLower extremity edemaICD-10: R60.0 ICD-9: 782.306/ctiveMajor depression, recurrentICD-10: F33.9 ICD-9: 296.3006/ctiveOnychogryposisICD-10: L60.2 ICD-9: 703.806ctivePVD (peripheral vascular disease)ICD-10: I73.9 ICD-9: 443.906ctiveBMI 60.0-69.9, adultICD-10: Z68.44 ICD-9: V85.4405ctiveCandidal intertrigoICD-10: B37.2 ICD-9: 112.305/ctiveHistory of anemia due to CKDICD-10: N18.9 ICD-9: 585.9010/12/2023ctiveLearning disabilityICD-10: F81.9 ICD-9: 315.ctiveParaparesis of both lower limbsICD-10: G82.20 ICD-9: 344.105ctiveReducible umbilical herniaICD-10: K42.9 ICD-9: 553.105ctiveSeizure disorderICD-10: G40.909 ICD-9: 345.90010/12/2023ctiveCallus of heelICD-10: L84 ICD-9: 56395esolvedGout due to renal impairmentICD-10: M10.30 ICD-9: 274.1005esolvedHyperhidrosis of palmsICD-10: L74.512 ICD-9: 705.2105esolvedHyperlipidemia, unspecifiedICD-10: E78.5 ICD-9: 272.405/esolvedOther fdc (current) drug therapyICD-10: Z79.899 ICD-9: V58.6905esolvedPain of right heelICD-10: M79.671 ICD-9: 729.505/esolvedStage 2 chronic kidney diseaseICD-10: N18.2 ICD-9: 585.205esolvedTinea pedis of both feetICD-10: B35.3 ICD-9: 110.405/esolvedAmputated toe of right footICD-10: S98.131A ICD-9: 895.004/ctiveConstipation by delayed colonic transitICD-10: K59.01 ICD-9: 564.0104ctiveDiabetic neuropathy associated with type 2 diabetes mellitusICD-10: E11.40 ICD-9: 250.6004/ctiveHx of deep venous thrombosisICD-10: Z86.718 ICD-9: V12.5104ctiveHypercoagulable stateICD-10: D68.59 ICD-9: 289.8104ctiveHyperlipidemia associated with type 2 diabetes mellitusICD-10: E11.69 ICD-9: 250.8004ctiveHypertensive heart disease without heart failure ICD-10: I11.9 ICD-9: 402.9004ctiveRecurrent major depressive disorder, in partial remissionICD-10: F33.41 [...] H61.22 ICD-9: 380.404/esolvedShortness of breathICD-10: R06.02 ICD-9: 786.0504/esolvedSkin tagICD-10: L91.8 ICD-9: 701.904/esolvedCoronary artery disease involving blackfeet coronary artery of blackfeet heart, angina presence unspecifiedICD-10: I25.10 ICD-9: 414.0102/4ActiveInappropriate sexual behaviorICD-10: Z72.89 ICD-9: 312.8910/ctiveAnnual physical examICD-10: Z00.00 ICD-9: V70.009/ctivePre-op evaluationICD-10: Z01.818 ICD-9: V72.8403/ctiveSecondary hypertensionICD-10: I15.9 ICD-9: 405.9903ctiveDepressionICD-10: F32.9 ICD-9: 26403/2ResolvedDVT (deep venous thrombosis)ICD-10: I82.409 ICD-9: 453.40092ResolvedEncounter for [...] to other viral communicable diseasesICD-10: Z20.828 ICD-9: V01.79022661OuyokphtXknokulvHbhgabo64/28/2020ActiveDiabetes mellitus Type 8Kwdwltu55/28/2020ActiveAnemia in chronic kidney diseaseICD-10: D63.1 02/12/2020ResolvedHyperlipidemia, unspecifiedICD-10: E78.Resolved Medications Medication Codes Instructions Start Date Stop Date Status Fill Instructions torsemide 20 mg tablet RxNorm: 096248 Take 1 Tablet(s) Oral QD 10/26/19 24 024 Inactive potassium chloride ER 20 mEq tablet,extended release RxNorm: 19800522 Take 2 Tablet(s) Oral BID 10/26/19 24 025 Active torsemide 20 mg tablet RxNorm: 744335 Take 1 Tablet(s) Oral QD 10/26/19 24 024 Inactive potassium chloride ER 20 mEq tablet,extended release RxNorm: 19800522 Take 2 Tablet(s) Oral BID 10/26/19 24 024 Inactive Artificial Tears (PF) 0.1 %-0.3 % drops in a dropperette RxNorm: 094605 Apply 1-2 Drop(s) Both eyes BID as needed 09/28/19 24 025 Active erythromycin 5 mg/gram (0.5 %) eye ointment RxNorm: 389461 Apply 1 Application Both eyes QHS every night at bedtime Instill ~1 cm ribbon into affected eye 09/28/19 24 Inactive Artificial Tears (PF) 0.1 %-0.3 % drops in a dropperette RxNorm: 328735 Apply 1-2 Drop(s) Both eyes BID as needed 09/28/19 24 024 Inactive erythromycin 5 mg/gram (0.5 %) eye ointment RxNorm: 559940 Apply 1 Application Both eyes QHS every night at bedtime Instill ~1 cm ribbon into affected eye 09/28/19 24 Inactive acetaminophen 500 mg tablet RxNorm: 306799 (MAX APAP:4GM/24HR) Take 1 Tablet(s) Oral TID as needed for pain 09/24/19 24 Inactive carvedilol 25 mg tablet RxNorm: 356964 Take 1 Tablet(s) Oral QD 09/08/19 24 No Stop Date Active pregabalin 100 mg capsule RxNorm: 523941 Take 1 Capsule(s) Oral QAM every morning 09/07/19 24 024 Active rosuvastatin 40 mg tablet RxNorm: 367283 Take 1 Tablet(s) Oral QPM every evening 07/13/19 24 No Stop Date Active ezetimibe 10 mg tablet RxNorm: 244942 Take 1 Tablet(s) Oral QD 07/13/19 24 No Stop Date Active bisacodyl 10 mg rectal suppository RxNorm: 450139 Insert 1 Suppository Rectal QD as needed 07/13/19 24 No Stop Date Active polyethylene glycol 3350 17 gram/dose oral powder RxNorm: 918980 Take 17 Gram(s) Oral BID as needed mix in 4-8ox water 07/13/19 24 No Stop Date Active ketoconazole 2 % shampoo RxNorm: 519503 Apply 1 Application Topical UD as directed 07/13/19 24 No Stop Date Active aripiprazole 15 mg tablet RxNorm: 540212 Take 1/2 Tablet(s) Oral QD 07/13/19 24 No Stop Date Active Ozempic 1 mg/dose (4 mg/3 mL) subcutaneous pen injector RxNorm: 3702889 Inject 1 Milligram(s) Subcutaneous QW once a week 07/13/19 24 No Stop Date Active Guaifenesin AC 10 mg-100 mg/5 mL oral liquid RxNorm: 029052 Take 10 Milliliter(s) Oral Q4H every four hours as needed 07/13/19 24 No Stop Date Active isosorbide mononitrate ER 60 mg tablet,extended release 24 hr RxNorm: 930865 Take 1 Tablet(s) Oral QD 07/13/19 24 No Stop Date Active ammonium lactate 12 % topical cream RxNorm: 982865 Apply 1 Application Topical BID 07/13/19 24 No Stop Date Active hydrocortisone 2.5 % topical cream RxNorm: 119202 Apply 1 Application Topical BID as needed 07/13/19 24 No Stop Date Active rosuvastatin 20 mg sprinkle capsule RxNorm: 7064896 Take 1 Capsule(s) Oral QD 07/13/19 24 No Stop Date Active Vascepa 1 gram capsule RxNorm: 2823613 Take 2 Capsule(s) Oral BID 07/13/19 24 No Stop Date Active venlafaxine ER 75 mg capsule,extended release 24 hr RxNorm: 072666 Take 3 Capsule(s) Oral QD 07/13/19 24 No Stop Date Active Basaglar KwikPen U-100 Insulin 100 unit/mL (3 mL) subcutaneous RxNorm: 6277016 Inject 30U SubQ twice daily 07/07/19 24 025 Active Please dispense one month supply. Basaglar KwikPen U-100 Insulin 100 unit/mL (3 mL) subcutaneous RxNorm: 6988125 Inject 30U SubQ twice daily 07/07/19 24 024 Inactive Please dispense one month supply. pregabalin 150 mg capsule RxNorm: 706621 Take 1 Capsule(s) Oral QHS every night at bedtime 07/05/19 24 024 Active pregabalin 150 mg capsule RxNorm: 047972 Take 1 Capsule(s) Oral QHS every night at bedtime 07/05/19 24 024 Inactive polyethylene glycol 3350 17 gram/dose oral powder RxNorm: 819094 Take 1 Packet Oral QD as needed (1 packet = 17g) mix with 4-8oz of liquid 06/15/19 24 024 Inactive bisacodyl 10 mg rectal suppository RxNorm: 124385 Insert one suppository per rectum once daily as needed for constipation 06/15/19 24 024 Inactive bisacodyl 10 mg rectal suppository RxNorm: 675002 Insert one suppository per rectum once daily as needed for constipation 06/15/19 24 024 Inactive pregabalin 100 mg capsule RxNorm: 256691 Take 1 Capsule(s) Oral QAM every morning 04/27/20 024 Inactive Levemir FlexPen 100 unit/mL (3 mL) solution subcutaneous insulin pen RxNorm: 422511 Inject 30 Unit(s) Subcutaneous BID 04/27/20 23 024 Inactive rosuvastatin 40 mg tablet RxNorm: 652791 Take 1 Tablet(s) Oral QPM every evening 04/16/20 024 Inactive D/C rosuvastatin 20mg venlafaxine ER 75 mg capsule,extended release 24 hr RxNorm: 957031 Take 3 Capsule(s) Oral QD 04/14/20 023 Inactive pregabalin 100 mg capsule RxNorm: 341333 Take 1 Capsule(s) Oral QAM every morning [...] meter clotrimazole 1 % topical cream RxNorm: 696600 Take apply topically to abdominal folds twice daily for 14 days 03/12/20 024 Inactive Ozempic 1 mg/dose (4 mg/3 mL) subcutaneous pen injector RxNorm: 4404560 Inject 1 Milligram(s) Subcutaneous QW once a week 03/11/20 023 Inactive rosuvastatin 20 mg tablet RxNorm: 261878 Take 1 Tablet(s) Oral QD 02/26/20 023 Inactive d/c pravastatin 80mg Ozempic 1 mg/dose (4 mg/3 mL) subcutaneous pen injector RxNorm: 5488310 Inject 1 Milligram(s) Subcutaneous QW once a week 02/20/20 023 Inactive pregabalin 150 mg capsule RxNorm: 894581 Take 1 Capsule(s) Oral HS at bed time 02/19/20 23 023 Inactive pregabalin 100 mg capsule RxNorm: 134375 Take 1 Capsule(s) Oral QAM every morning 02/18/20 23 023 Inactive venlafaxine ER 75 mg capsule,extended release 24 hr RxNorm: 512777 Take 3 Capsule(s) Oral QD 02/04/20 23 023 Inactive FreeStyle Chema 2 Sensor kit RxNorm: use as directed 02/04/20 23 023 Inactive FreeStyle Chema 2 Sensor kit RxNorm: use as directed 02/04/20 23 024 Inactive fluconazole 150 mg tablet RxNorm: 229488 Take 1 Tablet(s) Oral on day 3 and on day 6 02/03/20 23 024 Active chlorthalidone 25 mg tablet RxNorm: 274246 Take 1 Tablet(s) Oral QAM every morning 02/03/20 23 No Stop Date Active venlafaxine ER 150 mg capsule,extended release 24 hr RxNorm: 048555 Take 1 Capsule(s) Oral QD 02/03/20 023 Inactive acetaminophen 500 mg tablet RxNorm: 122957 1 TABLET ORALLY 3 TIMES DAILY (MAX APAP:4GM/24HR) 12/15/19 23 023 Inactive clotrimazole 1 % topical cream RxNorm: 743880 apply 1g topically to top of feet and in between toes BID 12/09/19 23 023 Inactive potassium chloride ER 20 mEq tablet,extended release RxNorm: 437604 Take 1 Tablet(s) Oral BID 12/09/19 23 024 Inactive d/c 20mEq once daily (sent from hospital) nystatin 100,000 unit/gram topical powder RxNorm: 105230 APPLY TO AFFECTED AREAS TOPICALLY 2 TIMES DAILY 11/21/19 23 024 Inactive Nystop 100,000 unit/gram topical powder RxNorm: 269432 Apply to abd folds, under breasts and L side of groin Topical BID x 14 days, then BID PRN 11/20/19 23 023 Inactive dx: yeast dermatitis Bengay Ultra Strength 4 %-30 %-10 % topical cream RxNorm: 288767 Apply 1 Gram(s) Topical QID PRN to feet and legs for neuropathic pain 11/11/19 024 Inactive clotrimazole 1 % topical cream RxNorm: 516946 Apply 1/2 Gram(s) Topical BID Apply to affected areas of groin, periarea, and abdominal topically 2 times daily 11/10/19 023 Inactive hydrocortisone 2.5 % topical cream RxNorm: 652842 Apply 1/2 Gram(s) Topical BID as needed 11/10/19 024 Inactive Humulin R U-500 (Concentrated) Insulin 500 unit/mL subcutaneous soln RxNorm: 428846 Inject 100 Unit(s) Subcutaneous TID 10/07/19 024 Inactive Levemir FlexPen 100 unit/mL (3 mL) solution subcutaneous insulin pen RxNorm: 533724 Inject 30 Unit(s) Subcutaneous BID 10/07/19 023 Inactive Ozempic 0.25 mg or 0.5 mg (2 mg/3 mL) subcutaneous pen injector RxNorm: 3053368 Inject 1/2 Milligram(s) Subcutaneous QW once a week 10/07/19 024 Inactive aripiprazole 15 mg tablet RxNorm: 616373 1/2 TAB (7.5MG) ORALLY DAILY (DX:MAJOR DEPRESSIVE DISORDER) 09/23/19 023 Inactive Lancets,Thin 28 gauge RxNorm: Use 1 as directed QID 09/15/19 23 024 Inactive Accu-Chek Guide test strips RxNorm: Use 1 Test Strip QID 09/15/19 023 Inactive ok to substitute with any covered alternative test strip torsemide 20 mg tablet RxNorm: 614092 Take 1 Tablet(s) Oral BID 09/09/19 024 Inactive d/c once daily dosing carvedilol 25 mg tablet RxNorm: 791637 Take 1 Tablet(s) Oral QD 08/25/19 23 024 Inactive pregabalin 150 mg capsule RxNorm: 356147 1 Capsule(s) Oral HS at bed time 08/18/19 023 Inactive pregabalin 100 mg capsule RxNorm: 056490 1 Capsule(s) Oral QAM every morning 08/18/19 23 023 Inactive carvedilol 25 mg tablet RxNorm: 405540 1 Tablet(s) Oral QD 07/28/19 23 023 Inactive lisinopril 20 mg tablet RxNorm: 934646 Give 1 Tablet(s) Oral QD 07/28/19 023 Inactive Lyrica 150 mg capsule RxNorm: 304715 Take 1 Capsule(s) Oral QHS every night at bedtime 07/19/19 023 Inactive d/c 100mg dose Diflucan 150 mg tablet RxNorm: 401160 Take 1 Tablet(s) Oral QD repeat on day 3 and 6 07/19/19 023 Inactive pregabalin 100 mg capsule RxNorm: 868597 Take 1 Capsule(s) Oral QAM every morning 07/19/19 023 Inactive gatifloxacin 0.5 % eye drops RxNorm: 997198 Instill 1 Drop(s) as directed TID Instill 1 drop in to affected eye(s) starting 1 day prior to surgery and continue until gone (do not exceed 4 weeks). 07/13/19 023 Inactive carvedilol 25 mg tablet RxNorm: 189344 2 Tablet(s) Oral BID 07/13/19 023 Inactive Humulin R Regular U-100 Insulin 100 unit/mL injection solution RxNorm: 362844 85 Unit(s) Injection TID 07/13/19 23 023 Inactive ketorolac 0.5 % eye drops RxNorm: 169518 Instill 1 Drop(s) as directed QID Instill 1 drop into affected eye(s) 4 times daily starting 1 day prior to surgery and continue until gone (do not exceed 4 weeks). 07/13/19 23 023 Inactive Diflucan 150 mg tablet RxNorm: 572866 Take 1 Tablet(s) Oral QD repeat on day 3 and 6 06/30/19 23 023 Inactive Accu-Chek Guide test strips RxNorm: Use 1 Test Strip QID Use 1 test strip to monitor blood glucose 4 times daily and as needed. Dx:E11.42. 06/23/19 023 Inactive ok to substitute with any covered alternative test strip dextromethorphan-gu aifenesin 10 mg-100 mg/5 mL oral liquid RxNorm: 868826 Take 10 Milliliter(s) Oral every 4 hours as needed for cough 06/19/19 023 Inactive dextromethorphan-gu aifenesin 10 mg-100 mg/5 mL oral liquid RxNorm: 704422 Take 10 Milliliter(s) Oral every 4 hours as needed for cough 06/19/19 023 Inactive Lyrica 150 mg capsule RxNorm: 012290 Take 1 Capsule(s) Oral QHS every night at bedtime 06/18/19 023 Inactive d/c 100mg dose aripiprazole 15 mg tablet RxNorm: 160332 1/2 TAB (7.5MG) ORALLY DAILY (DX:MAJOR DEPRESSIVE DISORDER) 06/05/19 023 Inactive pregabalin 100 mg capsule RxNorm: 372908 1 Capsule(s) Oral QAM every morning 06/02/19 023 Inactive Banophen 50 mg capsule RxNorm: 2848160 Take 1 Capsule(s) Oral Q6H every 6 hours as needed 05/19/19 23 No Stop Date Active Novolog Flexpen U-100 Insulin aspart 100 unit/mL (3 mL) subcutaneous RxNorm: 4668567 Inject 10 Unit(s) Subcutaneous QHS every night at bedtime with nighttime snack 04/08/20 22 022 Inactive Novolog Flexpen U-100 Insulin aspart 100 unit/mL (3 mL) subcutaneous RxNorm: 6351630 Inject 42 Unit(s) Subcutaneous TID in addition to sliding scale 04/08/20 022 Inactive d/c 36u albuterol sulfate HFA 90 mcg/actuation aerosol inhaler RxNorm: 2057091 Take 2 Puff(s) Inhalation Q4H every four hours as needed as needed for SOB, cough, or wheezing 04/07/20 22 030 Active Banophen 50 mg capsule RxNorm: 0667936 Take 1 Capsule(s) Oral Q6H every 6 hours as needed 04/06/20 023 Inactive diphenhydramine 50 mg tablet RxNorm: 4064568 Take 1 Tablet(s) Oral Q6H every 6 hours as needed 04/06/20 22 022 Inactive diphenhydramine 50 mg tablet RxNorm: 5237878 1 Tablet(s) Oral Q6H every 6 hours as needed 04/06/20 22 022 Inactive Abilify 15 mg tablet RxNorm: 512066 1/2 Tablet(s) Oral QD 03/10/20 023 Inactive Shingrix (PF) 50 mcg/0.5 mL intramuscular suspension, kit RxNorm: 2615928 Administer 1/2 Milliliter(s) Intramuscular QD one time shingrix step 2 ( step 1 given 11/04/21) WITH needle - Nursing please administer upon arrival and once administered post a bridge message with date of administration, industrial engineering manager, expiration date, and lot# so we can update [facility]IC 02/18/20 22 022 Inactive dispense with needle Shingrix (PF) 50 mcg/0.5 mL intramuscular suspension, kit RxNorm: 0825176 Administer 1/2 Milliliter(s) Intramuscular QD one time shingrix step 2 ( step 1 given 11/04/21) WITH needle - Nursing please administer upon arrival and once administered post a bridge message with date of administration, industrial engineering manager, expiration date, and lot# so we can update TXIC 02/18/20 22 022 Inactive dispense with needle polyethylene glycol 3350 17 gram/dose oral powder RxNorm: 809843 Take 17=1 capful Gram(s) Oral QD mix with 4-8oz of liquid 01/08/20 22 023 Inactive take this in addition to BID prn order Lyrica 100 mg capsule RxNorm: 190664 Take 1 Capsule(s) Oral QAM every morning 01/08/20 22 022 Inactive d/c 50mg dose acetaminophen 500 mg tablet RxNorm: 868558 Take 1 Tablet(s) Oral TID 01/08/20 22 022 Inactive d/c PRN order Lyrica 150 mg capsule RxNorm: 207698 Take 1 Capsule(s) Oral QHS every night at bedtime 01/08/20 22 023 Inactive d/c 100mg dose Abilify 5 mg tablet RxNorm: 379422 Take 1 Tablet(s) Oral QD take 1 tab po QD #30 refill 5 dx: MDD 12/12/19 22 022 Inactive Abilify 5 mg tablet RxNorm: 679512 Take 1 Tablet(s) Oral QD take 1 tab po QD #30 refill 5 dx: MDD 12/12/19 22 022 Inactive Novolog Flexpen U-100 Insulin aspart 100 unit/mL (3 mL) subcutaneous RxNorm: 4066710 Inject 42 Unit(s) Subcutaneous TID in addition to sliding scale 12/10/19 22 022 Inactive d/c 36u chlorthalidone 25 mg tablet RxNorm: 462661 Take 1 Tablet(s) Oral QAM every morning 12/10/19 22 023 Inactive pregabalin 50 mg capsule RxNorm: 546439 Take 1 Capsule(s) Oral QAM every morning 11/12/19 22 022 Inactive tetanus-diphtheria toxoids-Td 2 Lf unit-2 Lf unit/0.5 mL IM suspension RxNorm: 139 Take 0.5 Miscellaneous Intramuscular 11/12/19 22 022 Inactive need tdap - nursing to administer upon arrival pregabalin 50 mg capsule RxNorm: 623373 Take 1 Capsule(s) Oral QAM every morning 10/16/19 22 022 Inactive pregabalin 50 mg capsule RxNorm: 441482 Take 1 Capsule(s) Oral QAM every morning 10/16/19 22 022 Inactive pregabalin 50 mg capsule RxNorm: 075122 1 Capsule(s) Oral QAM every morning 10/15/19 22 022 Inactive Shingrix (PF) 50 mcg/0.5 mL intramuscular suspension, kit RxNorm: 5823278 Administer 1/2 Milliliter(s) Intramuscular one time Nursing please administer upon arrival and once administered post a bridge message with date of administration, industrial engineering manager, expiration date, and lot# so we can update MIIC. 10/09/19 22 022 Inactive shingrix step 1 Shingrix (PF) 50 mcg/0.5 mL intramuscular suspension, kit RxNorm: 7657756 Administer 1/2 Milliliter(s) Intramuscular one time Nursing please administer upon arrival and once administered post a bridge message with date of administration, industrial engineering manager, expiration date, and lot# so we can update [facility]IC. 10/09/19 22 022 Inactive shingrix step 1 cholecalciferol (vitamin D3) 1,250 mcg (50,000 unit) capsule RxNorm: 579961 Take 1 Capsule(s) Oral QW once a [...] aspart 100 unit/mL (3 mL) subcutaneous RxNorm: 5853141 Inject 10 Unit(s) Subcutaneous QHS every night at bedtime with nighttime snack 10/08/19 22 Inactive Shingrix (PF) 50 mcg/0.5 mL intramuscular suspension, kit RxNorm: 3828932 ADMINISTER 2-DOSE SERIES PER CDC GUIDELINES 10/08/19 22 022 Active Shingrix (PF) 50 mcg/0.5 mL intramuscular suspension, kit RxNorm: 0306475 ADMINISTER 2-DOSE SERIES PER CDC GUIDELINES 10/08/19 22 022 Inactive Novolog Flexpen U-100 Insulin aspart 100 unit/mL (3 mL) subcutaneous RxNorm: 6284147 Inject 36 Unit(s) Subcutaneous TID in addition to sliding scale 10/08/19 22 022 Inactive Novofine Autocover 30 gauge x 1/3 needle RxNorm: Use 1 Miscellaneous UD as directed Use 1 needle as directed to administer insulin 5 times a day Dx:E11.42. 10/03/19 22 022 Inactive ok to substitute with any covered alternative pen needle benzoyl peroxide 10 % topical cleanser RxNorm: 144902 Apply 1 Application Topical QD apply to face, wash rinse and dry once daily (may change to QOD if drying) 08/19/19 22 022 Inactive (%covered by insurance) #60ml refill 11 dx: acne benzoyl peroxide 10 % topical cleanser RxNorm: 039540 Apply 1 Application Topical QD apply to face, wash rinse and dry once daily (may change to QOD if drying) 08/19/19 22 022 Inactive (%covered by insurance) #60ml refill 11 dx: acne benzoyl peroxide 10 % topical cleanser RxNorm: 995352 Apply 1 Application Topical QD apply to face, wash rinse and dry once daily (may change to QOD if drying) 08/19/19 022 Inactive (%covered by insurance) #60ml refill 11 dx: acne Lyrica 50 mg capsule RxNorm: 333754 Take 1 Capsule(s) Oral QAM every morning Take 1 capsule by mouth once daily 08/19/19 22 022 Inactive benzoyl peroxide 10 % topical cleanser RxNorm: 806371 Apply 1 Application Topical QD apply to face, wash rinse and dry once daily (may change to QOD if drying) 08/19/19 22 022 Inactive (%covered by insurance) #60ml refill 11 dx: acne Lyrica 100 mg capsule RxNorm: 962019 Take 1 Capsule(s) Oral QHS every night at bedtime Take 1 capsule by mouth once daily at bedtime 08/19/19 22 022 Inactive Lyrica 100 mg capsule RxNorm: 869297 Take 1 Capsule(s) Oral QHS every night at bedtime Take 1 capsule by mouth once daily at bedtime 08/16/19 22 022 Inactive Lyrica 50 mg capsule RxNorm: 658250 Take 1 Capsule(s) Oral QAM every morning Take 1 capsule by mouth once daily 08/16/19 22 022 Inactive Levemir FlexTouch U-100 Insulin 100 unit/mL (3 mL) subcutaneous pen RxNorm: 907023 Inject 86 Unit(s) Subcutaneous BID 08/05/19 22 022 Inactive d/c 83units BID Lyrica 100 mg capsule RxNorm: 444150 Take 1 Capsule(s) Oral QHS every night at bedtime Take 1 capsule by mouth once daily at bedtime 07/14/19 22 022 Inactive Lyrica 50 mg capsule RxNorm: 178794 Take 1 Capsule(s) Oral QAM every morning Take 1 capsule by mouth once daily 07/14/19 22 022 Inactive Levemir FlexTouch U-100 Insulin 100 unit/mL (3 mL) subcutaneous pen RxNorm: 468205 Inject 83 Unit(s) Subcutaneous BID 07/08/19 22 [...] test strip hydralazine 50 mg tablet RxNorm: 665023 Take 1 Tablet(s) Oral QID 05/05/20 21 022 Inactive venlafaxine ER 225 mg tablet,extended release 24 hr RxNorm: 177752 Take 1 Tablet(s) Oral QD 05/05/20 Inactive venlafaxine ER 225 mg tablet,extended release 24 hr RxNorm: 851095 Take 1 Tablet(s) Oral QD 05/05/20 022 Inactive isosorbide mononitrate ER 30 mg tablet,extended release 24 hr RxNorm: 691976 Take 1 Tablet(s) Oral QD 05/05/20 024 Inactive hydralazine 50 mg tablet RxNorm: 943368 Take 1 Tablet(s) Oral QID 05/05/20 21 Inactive aspirin 81 mg tablet,delayed release RxNorm: 928246 Take 1 Tablet(s) Oral QD 03/31/20 022 Inactive Vitamin D2 1,250 mcg (50,000 unit) capsule RxNorm: 2549936 Take 1 Capsule(s) Oral QW once a week x 12 weeks 03/31/20 022 Inactive Vitamin D2 1,250 mcg (50,000 unit) capsule RxNorm: 5328200 Take 1 Capsule(s) Oral QW once a week 03/31/20 Inactive Zetia 10 mg tablet RxNorm: 219525 Take 1 Tablet(s) Oral QD 03/31/20 024 Inactive Zetia 10 mg tablet RxNorm: 741748 Take 1 Tablet(s) Oral QD 03/31/20 21 021 Inactive hydralazine 25 mg tablet RxNorm: 304542 Take 1 Tablet(s) Oral QID 11/15/ 021 Inactive hydralazine 25 mg tablet RxNorm: 866935 Take 1 Tablet(s) Oral QID 03/31/20 021 Inactive hydralazine 10 mg tablet RxNorm: 201010 Take 1 Tablet(s) Oral QID 03/03/20 021 Inactive cephalexin 500 mg tablet RxNorm: 522126 Take 1 Tablet(s) Oral QID 02/27/20 021 Inactive cephalexin 500 mg tablet RxNorm: 934003 Take 1 Tablet(s) Oral QID 02/27/20 021 Inactive lisinopril 40 mg tablet RxNorm: 643256 Take 1 Tablet(s) Oral QD 02/11/20 023 Inactive Eliquis 5 mg tablet RxNorm: 5149511 Take 1 Tablet(s) Oral BID 01/05/20 022 Inactive Eliquis 5 mg tablet RxNorm: 1986793 Take 2 Tablet(s) Oral QD 01/01/20 21 021 Inactive Lyrica 50 mg capsule RxNorm: 053046 Take 1 Capsule(s) Oral QAM every morning 12/24/19 021 Inactive Lyrica 100 mg capsule RxNorm: 405246 Take 1 Capsule(s) Oral QHS every night at bedtime 12/24/19 021 Inactive clotrimazole 1 % topical cream RxNorm: 616483 Apply to right foot and toes Topical BID 12/04/19 21 023 Inactive metoprolol succinate ER 200 mg tablet,extended release 24 hr RxNorm: 364729 Take 1 Tablet(s) Oral QD 12/04/19 023 Inactive ciprofloxacin 500 mg tablet RxNorm: 495472 Take 1 Tablet(s) Oral QD 11/30/19 021 Inactive DX ofloxacin otic drops Accu-Chek Guide test strips RxNorm: USE 1 TO CHECK GLUCOSE 4 TIMES DAILY AND NEEDED 11/15/19 21 023 Inactive Blood Glucose Test strips RxNorm: Use 1 Test Strip QID at PRN 11/05/19 21 023 Inactive E11.42 lisinopril 30 mg tablet RxNorm: 333316 Take 1 Tablet(s) Oral QD 10/30/19 21 021 Inactive lisinopril 20 mg tablet RxNorm: 956114 Take 1 Tablet(s) Oral QD 10/23/19 21 021 Inactive lisinopril 20 mg tablet RxNorm: 431182 Take 1 Tablet(s) Oral QD 10/23/19 21 021 Inactive lisinopril 10 mg tablet RxNorm: 319846 Take 1 Tablet(s) Oral QD 10/02/19 21 021 Inactive icosapent ethyl 1 gram capsule RxNorm: 2993664 Take 2 Capsule(s) (2 gm) Oral BID with meals 09/12/19 21 024 Inactive Okay to dispense one 2gm tab if you have that available. icosapent ethyl 1 gram capsule RxNorm: 5851095 Take 2 Capsule(s) Oral BID 09/12/19 021 Inactive Okay to dispense one 2gm tab if you have that available. amlodipine 10 mg tablet RxNorm: 080547 Take 1 Tablet(s) Oral QD 09/04/19 21 022 Inactive aspirin 81 mg tablet,delayed release RxNorm: 962906 Take 1 Tablet(s) Oral QD 09/04/19 21 021 Inactive Levemir FlexTouch U-100 Insulin 100 unit/mL (3 mL) subcutaneous pen RxNorm: 654129 Inject 150 Unit(s) Subcutaneous BID 09/04/19 21 022 Inactive venlafaxine ER 150 mg tablet,extended release 24 hr RxNorm: 053418 Take 1 Tablet(s) Oral QD 09/04/19 21 021 Inactive clotrimazole-betame thasone 1 %-0.05 % topical cream RxNorm: 727774 Apply to rash on red area on left abdomen/chest Topical BID 08/10/19 21 021 Inactive amlodipine 5 mg tablet RxNorm: 563243 Take 1 Tablet(s) Oral QD 07/31/19 21 021 Inactive cephalexin 500 mg tablet RxNorm: 415781 Take 1 Tablet(s) Oral BID BID - Twice Daily 07/31/19 21 021 Inactive Start 08/01/20 pantoprazole 40 mg tablet,delayed release RxNorm: 315400 Take 1 Tablet(s) Oral QAM every morning 07/08/19 Inactive senna 8.6 mg tablet RxNorm: 469892 Take 1 Tablet(s) Oral QD 07/08/19 Inactive carbamazepine 200 mg tablet RxNorm: 851490 Take 1 Tablet(s) Oral BID 07/08/19 022 Inactive clopidogrel 75 mg tablet RxNorm: 325376 Take 1 Tablet(s) Oral QD 07/08/19 021 Inactive Blood Glucose Test strips RxNorm: Use 1 Test Strip QID at PRN 07/08/19 Inactive E11.42 Novolog Flexpen U-100 Insulin aspart 100 unit/mL (3 mL) subcutaneous RxNorm: 7040791 Administer per sliding scale Milliliter(s) Subcutaneous TID 151-200: 10 u; 201-250: 20 u; 251-300: 30 u; 301-350: 40 u; 351-400: 50 u. 07/08/19 022 Inactive lisinopril 5 mg tablet RxNorm: 855137 Take 1 Tablet(s) Oral QD 07/08/19 021 Inactive Novolog Flexpen U-100 Insulin aspart 100 unit/mL (3 mL) subcutaneous RxNorm: 7565877 Inject 85 Unit(s) Subcutaneous TID 07/08/19 022 Inactive pravastatin 80 mg tablet RxNorm: 931950 Take 1 Tablet(s) Oral QHS every night at bedtime 07/08/19 023 Inactive clotrimazole 1 % topical cream RxNorm: 614089 Apply to bilateral groin areas Topical BID 07/08/19 21 022 Inactive metoprolol succinate ER 200 mg tablet,extended release 24 hr RxNorm: 858599 Take 1 Tablet(s) Oral QD 07/08/19 021 Inactive Vitamin D3 25 mcg (1,000 unit) tablet RxNorm: 675081 Take 1 Tablet(s) Oral QD 07/08/19 021 Inactive isosorbide dinitrate 30 mg tablet RxNorm: 465331 Take 1 Tablet(s) Oral QD 07/08/19 021 Inactive Levemir FlexTouch U-100 Insulin 100 unit/mL (3 mL) subcutaneous pen RxNorm: 293693 Inject 140 Unit(s) Subcutaneous BID 07/08/19 021 Inactive torsemide 20 mg tablet RxNorm: 148745 Take 1 Tablet(s) Oral QD 07/08/19 023 Inactive venlafaxine 75 mg tablet RxNorm: 818265 Take 1 Tablet(s) Oral QD 07/08/19 021 Inactive acetaminophen 500 mg tablet RxNorm: 109703 Take 1 Tablet(s) Oral TID as needed for headache 06/18/19 021 Inactive acetaminophen 500 mg tablet RxNorm: 955144 Take 1 Tablet(s) Oral TID as needed for headache 06/18/19 021 Inactive Lyrica 100 mg capsule RxNorm: 264890 Take 1 Capsule(s) Oral QHS every night at bedtime 06/11/19 021 Inactive Lyrica 50 mg capsule RxNorm: 693062 Take 1 Capsule(s) Oral QAM every morning 06/10/19 21 021 Inactive hydrocortisone 2.5 % topical cream RxNorm: 147006 Apply to bilateral groin creases Topical BID 05/15/20 20 021 Inactive clotrimazole 1 % topical cream RxNorm: 771212 Apply to bilateral groin areas Topical BID 05/15/20 20 021 Inactive Lyrica 50 mg capsule RxNorm: 858482 Take 1 Capsule(s) Oral QAM every morning 05/14/20 20 020 Inactive Lyrica 100 mg capsule RxNorm: 019759 Take 1 Capsule(s) Oral QHS every night [...] Inactive Nystop 100,000 unit/gram topical powder RxNorm: 989307 Apply to abd folds, under breasts and L side of groin Topical BID x 14 days, then BID PRN 04/08/20 20 Inactive dx: yeast dermatitis Lyrica 100 mg capsule RxNorm: 552425 Take 1 Capsule(s) Oral QHS every night at bedtime 03/13/20 20 Inactive Lyrica 50 mg capsule RxNorm: 864649 Take 1 Capsule(s) Oral QAM every morning 03/13/20 20 Inactive ketoconazole 2 % shampoo RxNorm: 478368 Apply Topical two times a week with showers 03/11/20 20 024 Inactive cholecalciferol (vitamin D3) 50 mcg (2,000 unit) tablet RxNorm: 656901 Take 1 Tablet(s) Oral QD 03/11/20 20 021 Inactive Zetia 10 mg tablet RxNorm: 026159 Take 1 Tablet(s) Oral QD 03/07/20 20 021 Inactive Zetia 10 mg tablet RxNorm: 725582 Take 1 Tablet(s) Oral QD 03/07/20 20 020 Inactive Lyrica 50 mg capsule RxNorm: 347294 Take 1 Capsule(s) Oral QAM every morning 02/15/20 20 Inactive Lyrica 100 mg capsule RxNorm: 991684 Take 1 Capsule(s) Oral QHS every night at bedtime 02/15/20 Inactive Lyrica 100 mg capsule RxNorm: 854908 Take 1 Capsule(s) Oral QHS every night at bedtime 02/15/20 Inactive Lyrica 50 mg capsule RxNorm: 548129 Take 1 Capsule(s) Oral QAM every morning 02/15/20 Inactive metoprolol succinate ER 200 mg tablet,extended release 24 hr RxNorm: 944853 Take 1 Tablet(s) Oral QD 08/11 Activeloperamide 2 mg capsuleRxNorm: 933875Aquf 1 Capsule(s) Oral QID as needed 06/12/2021ctivehydralazine 50 mg tabletRxNorm: 164831Xvkx 1 Tablet(s) Oral QID 08/11/2022ctivevenlafaxine ER 75 mg capsule,extended release 24 hrRxNorm: 316630Zxme 3 Capsule(s) Oral QD/Inactivepolyethylene glycol 3350 17 gram/dose oral powderRxNorm: 383876Qudf 17=1 capful Gram(s) Oral BID as needed mix with 4-8oz of fpogeo40/27//Inactiveicosapent ethyl 1 gram capsuleRxNorm: 1446562Crkw 2 Capsule(s) (2 gm) Oral BID with meals /InactiveOkay to dispense one 2gm tab if you have that available.Levemir FlexTouch U-100 Insulin 100 unit/mL (3 mL) subcutaneous pen RxNorm: 628008Vvaldb 80 Unit(s) Subcutaneous BID/Inactive Novolog Flexpen U-100 Insulin aspart 100 unit/mL (3 mL) subcutaneousRxNorm: 4258235Brskxq 30 Unit(s) Subcutaneous TID with meals/Inactive Medication Administered No Medication Administered data Reason For Visit No Reason For Visit data Plan of Care Planned Activity Notes Codes Status Date Patient Education: Patient Medication Summary Saqylwsef13/15/2024ppointment: Sandra Clark WPtel: [address] [facility] [address] [id number] [facility]/09/2022ppointment: Casper Tapan WPtel: [address] [facility] [address] [id number] USTCM10/26/2022Referral: [facility] W[facility]el: [address] [facility] [address] [id number] USReferralRecords Bqrasytp62/08/2023ppointment: Tapan Shirley WPtel: [address] [facility] [address] [id number] USF/U008/11/2022ppointment: Tapan Shirley WPtel: [address] [facility] [address] [id number] USF/U007/14/2022ppointment: Tapan Shirley WPtel: [address] [facility] [address] [id number] USF/U02Referral: [facility] WPtel: [address] [facility] [address] [facility] [address] [id number] WKPqpqddzbKpcqjpmsl07/12/2022Referral: General CardiologyReferralCompleted 1Referral: General PsychologistReferralClosedReferral: General PsychiatristReferralPatient/Family [...] Sister Jyotsna involved in his care cell# [phone] Guardian: Giulia (tapan met in person 09/01/21), now has Lexii (same group as giulia)Lab Schedule: /September*September (CBC with diff, CMP, A1c) March: (CBC, CMP, A1c, Lipids, VitD)10.15.2023: CBC, CMP Na 139, K2.6L, creat 1.45H, eGFR 54L, BG 513H, A1c, VitD 32. 6.: BMP Na 140, K3.7, BG 397 H. BUN 24H, Creat 1.09, eGFR 76L. 6.: ER labs CBC, CMP K 3.9 Creat 1.0 eGFR 84 BG 395H6.: CT scan umbilical hernia and pulmonary nodule (solid 4 mm LLL and LLL calcified granuloma) will need CT scan w/o contrast in 1 year to monitor growth (due )ADEEL: Dr. Martines note from 11.08.2023 at [facility] (follow up 6 months) 12/14/2023
--- OUTSIDE RECORDS SUMMARY | 2023-12-27 06:08 | XMS_ITS | CCD ---
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 Trumpet Teacher Name Role Phone [place] [facility] INST[facility]ER-[facility] Primary Care Provider Leona vailable Arpit STULL INSTALLER-C, [facility] Chronic [facility] Management U navailable Summary Purpose DataExchange Insurance Providers Payer name Policy type / Coverage type Covered green party ID Effective Begin Date Effective End Date [place] Medicare Part B [id number] Unknown Unknown Medicaid [place] Medicare Part B [id number] Unknown Unknown Family history Sister Brittany Suggs [...] Term 09/03/[address]: 9805242 Non-Smoker / No History of Smoking 09/02/[address]: 865216240 No Alcohol Consum ption 09/02/2020 Allergies, Adverse Reactions, Alerts Substance Reaction Codes Entered Date Inactivated Date Status * NO KNOWN FOOD ALLERGIES Whomdiy4207/13/2023No Inactive DateActiveLISINOPRILRxNorm: 3199352No Inactive DateActiveMetformin HFqCmpwuvo50/28/2020No Inactive DateActive* NO KNOWN ENVIRONMENTAL [id number]/27/2024No Inactive DateActive Problems Condition Codes Effective Dates Condition St atus Hypokalemia ICD-10: E87.6 ICD-9: 276.806ctiveLower extremity edemaICD-10: R60.0 ICD-9: 782.306/ctiveMajor depression, recurrentICD-10: F33.9 ICD-9: 296.3006ctiveOnychogryposisICD-10: L60.2 ICD-9: 703.806ctivePVD (peripheral vascular disease)ICD-10: I73.9 ICD-9: 443.906/ctiveBMI 60.0-69.9, adultICD-10: Z68.44 ICD-9: V85.4405ctiveCandidal intertrigoICD-10: B37.2 ICD-9: 112.305/ctiveHistory of anemia due to CKDICD-10: N18.9 ICD-9: 585.905ctiveLearning disabilityICD-10: F81.9 ICD-9: 315.ctiveParaparesis of both lower limbsICD-10: G82.20 ICD-9: 344.105ctiveReducible umbilical herniaICD-10: K42.9 ICD-9: 553.105ctiveSeizure disorderICD-10: G40.909 ICD-9: 345.90010/12/2023ctiveCallus of heelICD-10: L84 ICD-9: 74611/esolvedGout due to renal impairmentICD-10: M10.30 ICD-9: 274.1005esolvedHyperhidrosis of palmsICD-10: L74.512 ICD-9: 705.21010/12/2023esolvedHyperlipidemia, unspecifiedICD-10: E78.5 ICD-9: 272.405esolvedOther longterm (current) drug therapyICD-10: Z79.899 ICD-9: V58.6905esolvedPain of right heelICD-10: M79.671 ICD-9: 729.505esolvedStage 2 chronic kidney diseaseICD-10: N18.2 ICD-9: 585.205esolvedTinea pedis of both feetICD-10: B35.3 ICD-9: 110.405esolvedAmputated toe of right footICD-10: S98.131A ICD-9: 895.004/ctiveConstipation by delayed colonic transitICD-10: K59.01 ICD-9: 564.0104ctiveDiabetic neuropathy associated with type 2 diabetes mellitusICD-10: E11.40 ICD-9: 250.6004/ctiveHx of deep venous thrombosisICD-10: Z86.718 ICD-9: V12.5104ctiveHypercoagulable stateICD-10: D68.59 ICD-9: 289.8104/ctiveHyperlipidemia associated with type [...] tagICD-10: L91.8 ICD-9: 701.904esolvedCoronary artery disease involving [place] coronary artery of [place] heart, angina presence unspecifiedICD-10: I25.10 ICD-9: 414.0102/4ActiveInappropriate sexual behaviorICD-10: Z72.89 ICD-9: 312.8910ctiveAnnual physical examICD-10: Z00.00 ICD-9: V70.009/ctivePre-op evaluationICD-10: Z01.818 ICD-9: V72.8403ctiveSecondary hypertensionICD-10: I15.9 ICD-9: 405.9903ctiveDepressionICD-10: F32.9 ICD-9: 66825esolvedDVT (deep venous thrombosis)ICD-10: I82.409 ICD-9: 453.40092ResolvedEncounter for [...] to other viral communicable diseasesICD-10: Z20.828 ICD-9: V01.79021498UspbzifwOcmidctsJvebfbp83/28/2020ActiveDiabetes mellitus Type 7Dpfcazs18/28/2020ActiveAnemia in chronic kidney diseaseICD-10: D63.1 02/12/2020ResolvedHyperlipidemia, unspecifiedICD-10: E78.Resolved Medications Medication Codes Instructions Start Date Stop Date Status Fill Instructions acetaminophen 500 mg tablet RxNorm: 368599 (MAX APAP:4GM/24HR) Take 1 Tablet(s) Oral TID as needed for pain 12/10/19 24 Active torsemide 20 mg tablet RxNorm: 954715 Take 1 Tablet(s) Oral QD 10/26/19 24 024 Inactive potassium chloride ER 20 mEq tablet,extended release RxNorm: 19800522 Take 2 Tablet(s) Oral BID 10/26/19 24 025 Active torsemide 20 mg tablet RxNorm: 392325 Take 1 Tablet(s) Oral QD 10/26/19 24 024 Inactive potassium chloride ER 20 mEq tablet,extended release RxNorm: 150078 Take 2 Tablet(s) Oral BID 10/26/19 24 024 Inactive Artificial Tears (PF) 0.1 %-0.3 % drops in a dropperette RxNorm: 909942 Apply 1-2 Drop(s) Both eyes BID as needed 09/28/19 24 025 Active erythromycin 5 mg/gram (0.5 %) eye ointment RxNorm: 387047 Apply 1 Application Both eyes QHS every night at bedtime Instill ~1 cm ribbon into affected eye 09/28/19 24 Inactive Artificial Tears (PF) 0.1 %-0.3 % drops in a dropperette RxNorm: 606084 Apply 1-2 Drop(s) Both eyes BID as needed 09/28/19 24 024 Inactive erythromycin 5 mg/gram (0.5 %) eye ointment RxNorm: 446520 Apply 1 Application Both eyes QHS every night at bedtime Instill ~1 cm ribbon into affected eye 09/28/19 24 Inactive acetaminophen 500 mg tablet RxNorm: 212171 (MAX APAP:4GM/24HR) Take 1 Tablet(s) Oral TID as needed for pain 09/24/19 24 Inactive carvedilol 25 mg tablet RxNorm: 085109 Take 1 Tablet(s) Oral QD 09/08/19 24 No Stop Date Active pregabalin 100 mg capsule RxNorm: 847859 Take 1 Capsule(s) Oral QAM every morning 09/07/19 24 024 Active rosuvastatin 40 mg tablet RxNorm: 138223 Take 1 Tablet(s) Oral QPM every evening 07/13/19 24 No Stop Date Active ezetimibe 10 mg tablet RxNorm: 743732 Take 1 Tablet(s) Oral QD 07/13/19 24 No Stop Date Active bisacodyl 10 mg rectal suppository RxNorm: 815333 Insert 1 Suppository Rectal QD as needed 07/13/19 24 No Stop Date Active polyethylene glycol 3350 17 gram/dose oral powder RxNorm: 456690 Take 17 Gram(s) Oral BID as needed mix in 4-8ox water 07/13/19 24 No Stop Date Active ketoconazole 2 % shampoo RxNorm: 158178 Apply 1 Application Topical UD as directed 07/13/19 24 No Stop Date Active aripiprazole 15 mg tablet RxNorm: 328864 Take 1/2 Tablet(s) Oral QD 07/13/19 24 No Stop Date Active Ozempic 1 mg/dose (4 mg/3 mL) subcutaneous pen injector RxNorm: 6870852 Inject 1 Milligram(s) Subcutaneous QW once a week 07/13/19 24 No Stop Date Active Guaifenesin AC 10 mg-100 mg/5 mL oral liquid RxNorm: 251322 Take 10 Milliliter(s) Oral Q4H every four hours as needed 07/13/19 24 No Stop Date Active isosorbide mononitrate ER 60 mg tablet,extended release 24 hr RxNorm: 546339 Take 1 Tablet(s) Oral QD 07/13/19 24 No Stop Date Active ammonium lactate 12 % topical cream RxNorm: 682479 Apply 1 Application Topical BID 07/13/19 24 No Stop Date Active hydrocortisone 2.5 % topical cream RxNorm: 155502 Apply 1 Application Topical BID as needed 07/13/19 24 No Stop Date Active rosuvastatin 20 mg sprinkle capsule RxNorm: 8577103 Take 1 Capsule(s) Oral QD 07/13/19 24 No Stop Date Active Vascepa 1 gram capsule RxNorm: 2415928 Take 2 Capsule(s) Oral BID 07/13/19 24 No Stop Date Active venlafaxine ER 75 mg capsule,extended release 24 hr RxNorm: 823118 Take 3 Capsule(s) Oral QD 07/13/19 24 No Stop Date Active Basaglar KwikPen U-100 Insulin 100 unit/mL (3 mL) subcutaneous RxNorm: 8869670 Inject 30U SubQ twice daily 07/07/19 24 025 Active Please dispense one month supply. Basaglar KwikPen U-100 Insulin 100 unit/mL (3 mL) subcutaneous RxNorm: 1298885 Inject 30U SubQ twice daily 07/07/19 24 024 Inactive Please dispense one month supply. pregabalin 150 mg capsule RxNorm: 949467 Take 1 Capsule(s) Oral QHS every night at bedtime 07/05/19 24 024 Active pregabalin 150 mg capsule RxNorm: 716845 Take 1 Capsule(s) Oral QHS every night at bedtime 07/05/19 24 024 Inactive polyethylene glycol 3350 17 gram/dose oral powder RxNorm: 446295 Take 1 Packet Oral QD as needed (1 packet = 17g) mix with 4-8oz of liquid 06/15/19 24 024 Inactive bisacodyl 10 mg rectal suppository RxNorm: 374936 Insert one suppository per rectum once daily as needed for constipation 06/15/19 24 024 Inactive bisacodyl 10 mg rectal suppository RxNorm: 864839 Insert one suppository per rectum once daily as needed for constipation 06/15/19 24 024 Inactive pregabalin 100 mg capsule RxNorm: 402021 Take 1 Capsule(s) Oral QAM every morning 04/27/20 024 Inactive Levemir FlexPen 100 unit/mL (3 mL) solution subcutaneous insulin pen RxNorm: 741541 Inject 30 Unit(s) Subcutaneous BID 04/27/20 23 024 Inactive rosuvastatin 40 mg tablet RxNorm: 641264 Take 1 Tablet(s) Oral QPM every evening 04/16/20 024 Inactive D/C rosuvastatin 20mg venlafaxine ER 75 mg capsule,extended release 24 hr RxNorm: 496295 Take 3 Capsule(s) Oral QD 04/14/20 023 Inactive pregabalin 100 mg capsule RxNorm: 861772 Take 1 Capsule(s) Oral QAM every morning [...] meter clotrimazole 1 % topical cream RxNorm: 180447 Take apply topically to abdominal folds twice daily for 14 days 03/12/20 024 Inactive Ozempic 1 mg/dose (4 mg/3 mL) subcutaneous pen injector RxNorm: 6110070 Inject 1 Milligram(s) Subcutaneous QW once a week 03/11/20 023 Inactive rosuvastatin 20 mg tablet RxNorm: 371922 Take 1 Tablet(s) Oral QD 02/26/20 023 Inactive d/c pravastatin 80mg Ozempic 1 mg/dose (4 mg/3 mL) subcutaneous pen injector RxNorm: 6505777 Inject 1 Milligram(s) Subcutaneous QW once a week 02/20/20 23 023 Inactive pregabalin 150 mg capsule RxNorm: 261233 Take 1 Capsule(s) Oral HS at bed time 02/19/20 23 023 Inactive pregabalin 100 mg capsule RxNorm: 027282 Take 1 Capsule(s) Oral QAM every morning 02/18/20 23 023 Inactive venlafaxine ER 75 mg capsule,extended release 24 hr RxNorm: 544672 Take 3 Capsule(s) Oral QD 02/04/20 23 023 Inactive FreeStyle Chema 2 Sensor kit RxNorm: use as directed 02/04/20 23 023 Inactive FreeStyle Chema 2 Sensor kit RxNorm: use as directed 02/04/20 024 Inactive fluconazole 150 mg tablet RxNorm: 539221 Take 1 Tablet(s) Oral on day 3 and on day 6 02/03/20 024 Active chlorthalidone 25 mg tablet RxNorm: 648148 Take 1 Tablet(s) Oral QAM every morning 02/03/20 23 No Stop Date Active venlafaxine ER 150 mg capsule,extended release 24 hr RxNorm: 983613 Take 1 Capsule(s) Oral QD 02/03/20 23 023 Inactive acetaminophen 500 mg tablet RxNorm: 719257 1 TABLET ORALLY 3 TIMES DAILY (MAX APAP:4GM/24HR) 12/15/19 23 023 Inactive clotrimazole 1 % topical cream RxNorm: 088834 apply 1g topically to top of feet and in between toes BID 12/09/19 23 023 Inactive potassium chloride ER 20 mEq tablet,extended release RxNorm: 275906 Take 1 Tablet(s) Oral BID 12/09/19 23 024 Inactive d/c 20mEq once daily (sent from hospital) nystatin 100,000 unit/gram topical powder RxNorm: 550325 APPLY TO AFFECTED AREAS TOPICALLY 2 TIMES DAILY 11/21/19 23 024 Inactive Nystop 100,000 unit/gram topical powder RxNorm: 526711 Apply to abd folds, under breasts and L side of groin Topical BID x 14 days, then BID PRN 11/20/19 23 023 Inactive dx: yeast dermatitis [place] Ultra Strength 4 %-30 %-10 % topical cream RxNorm: 914180 Apply 1 Gram(s) Topical QID PRN to feet and legs for neuropathic pain 11/11/19 024 Inactive clotrimazole 1 % topical cream RxNorm: 264442 Apply 1/2 Gram(s) Topical BID Apply to affected areas of groin, periarea, and abdominal topically 2 times daily 11/10/19 23 023 Inactive hydrocortisone 2.5 % topical cream RxNorm: 572523 Apply 1/2 Gram(s) Topical BID as needed 11/10/19 024 Inactive Humulin R U-500 (Concentrated) Insulin 500 unit/mL subcutaneous soln RxNorm: 898990 Inject 100 Unit(s) Subcutaneous TID 10/07/19 024 Inactive Levemir FlexPen 100 unit/mL (3 mL) solution subcutaneous insulin pen RxNorm: 309743 Inject 30 Unit(s) Subcutaneous BID 10/07/19 023 Inactive Ozempic 0.25 mg or 0.5 mg (2 mg/3 mL) subcutaneous pen injector RxNorm: 7739579 Inject 1/2 Milligram(s) Subcutaneous QW once a week 10/07/19 024 Inactive aripiprazole 15 mg tablet RxNorm: 128494 1/2 TAB (7.5MG) ORALLY DAILY (DX:MAJOR DEPRESSIVE DISORDER) 09/23/19 023 Inactive Lancets,Thin 28 gauge RxNorm: Use 1 as directed QID 09/15/19 23 024 Inactive Accu-Chek Guide test strips RxNorm: Use 1 Test Strip QID 09/15/19 23 023 Inactive ok to substitute with any covered alternative test strip torsemide 20 mg tablet RxNorm: 847942 Take 1 Tablet(s) Oral BID 09/09/19 23 024 Inactive d/c once daily dosing carvedilol 25 mg tablet RxNorm: 502472 Take 1 Tablet(s) Oral QD 08/25/19 23 024 Inactive pregabalin 150 mg capsule RxNorm: 288669 1 Capsule(s) Oral HS at bed time 08/18/19 023 Inactive pregabalin 100 mg capsule RxNorm: 841913 1 Capsule(s) Oral QAM every morning 08/18/19 23 023 Inactive carvedilol 25 mg tablet RxNorm: 416887 1 Tablet(s) Oral QD 07/28/19 23 023 Inactive lisinopril 20 mg tablet RxNorm: 726806 Give 1 Tablet(s) Oral QD 07/28/19 23 023 Inactive Lyrica 150 mg capsule RxNorm: 375006 Take 1 Capsule(s) Oral QHS every night at bedtime 07/19/19 023 Inactive d/c 100mg dose Diflucan 150 mg tablet RxNorm: 324160 Take 1 Tablet(s) Oral QD repeat on day 3 and 6 07/19/19 23 023 Inactive pregabalin 100 mg capsule RxNorm: 516498 Take 1 Capsule(s) Oral QAM every morning 07/19/19 023 Inactive gatifloxacin 0.5 % eye drops RxNorm: 666077 Instill 1 Drop(s) as directed TID Instill 1 drop in to affected eye(s) starting 1 day prior to surgery and continue until gone (do not exceed 4 weeks). 07/13/19 023 Inactive carvedilol 25 mg tablet RxNorm: 180347 2 Tablet(s) Oral BID 07/13/19 023 Inactive Humulin R Regular U-100 Insulin 100 unit/mL injection solution RxNorm: 170393 85 Unit(s) Injection TID 07/13/19 23 023 Inactive ketorolac 0.5 % eye drops RxNorm: 587056 Instill 1 Drop(s) as directed QID Instill 1 drop into affected eye(s) 4 times daily starting 1 day prior to surgery and continue until gone (do not exceed 4 weeks). 07/13/19 23 023 Inactive Diflucan 150 mg tablet RxNorm: 018998 Take 1 Tablet(s) Oral QD repeat on day 3 and 6 06/30/19 23 023 Inactive Accu-Chek Guide test strips RxNorm: Use 1 Test Strip QID Use 1 test strip to monitor blood glucose 4 times daily and as needed. Dx:E11.42. 06/23/19 23 023 Inactive ok to substitute with any covered alternative test strip dextromethorphan-gu aifenesin 10 mg-100 mg/5 mL oral liquid RxNorm: 131165 Take 10 Milliliter(s) Oral every 4 hours as needed for cough 06/19/19 23 023 Inactive dextromethorphan-gu aifenesin 10 mg-100 mg/5 mL oral liquid RxNorm: 787448 Take 10 Milliliter(s) Oral every 4 hours as needed for cough 06/19/19 023 Inactive Lyrica 150 mg capsule RxNorm: 209711 Take 1 Capsule(s) Oral QHS every night at bedtime 06/18/19 023 Inactive d/c 100mg dose aripiprazole 15 mg tablet RxNorm: 879072 1/2 TAB (7.5MG) ORALLY DAILY (DX:MAJOR DEPRESSIVE DISORDER) 06/05/19 023 Inactive pregabalin 100 mg capsule RxNorm: 674300 1 Capsule(s) Oral QAM every morning 06/02/19 23 023 Inactive Banophen 50 mg capsule RxNorm: 3299602 Take 1 Capsule(s) Oral Q6H every 6 hours as needed 05/19/19 23 No Stop Date Active Novolog Flexpen U-100 Insulin aspart 100 unit/mL (3 mL) subcutaneous RxNorm: 2065593 Inject 10 Unit(s) Subcutaneous QHS every night at bedtime with nighttime snack 04/08/20 22 022 Inactive Novolog Flexpen U-100 Insulin aspart 100 unit/mL (3 mL) subcutaneous RxNorm: 7560807 Inject 42 Unit(s) Subcutaneous TID in addition to sliding scale 04/08/20 22 022 Inactive d/c 36u albuterol sulfate HFA 90 mcg/actuation aerosol inhaler RxNorm: 1337840 Take 2 Puff(s) Inhalation Q4H every four hours as needed as needed for SOB, cough, or wheezing 04/07/20 22 030 Active Banophen 50 mg capsule RxNorm: 6153763 Take 1 Capsule(s) Oral Q6H every 6 hours as needed 04/06/20 023 Inactive diphenhydramine 50 mg tablet RxNorm: 6788593 Take 1 Tablet(s) Oral Q6H every 6 hours as needed 04/06/20 22 022 Inactive diphenhydramine 50 mg tablet RxNorm: 7901781 1 Tablet(s) Oral Q6H every 6 hours as needed 04/06/20 22 022 Inactive Abilify 15 mg tablet RxNorm: 787332 1/2 Tablet(s) Oral QD 03/10/20 023 Inactive Shingrix (PF) 50 mcg/0.5 mL intramuscular suspension, kit RxNorm: 9943364 Administer 1/2 Milliliter(s) Intramuscular QD one time shingrix step 2 ( step 1 given 11/04/21) WITH needle - Nursing please administer upon arrival and once administered post a bridge message with date of administration, dividend deposit voucher clerk, expiration date, and lot# so we can update [facility] 02/18/20 22 022 Inactive dispense with needle Shingrix (PF) 50 mcg/0.5 mL intramuscular suspension, kit RxNorm: 0752776 Administer 1/2 Milliliter(s) Intramuscular QD one time shingrix step 2 ( step 1 given 11/04/21) WITH needle - Nursing please administer upon arrival and once administered post a bridge message with date of administration, dividend deposit voucher clerk, expiration date, and lot# so we can update [facility] 02/18/20 22 022 Inactive dispense with needle polyethylene glycol 3350 17 gram/dose oral powder RxNorm: 954017 Take 17=1 capful Gram(s) Oral QD mix with 4-8oz of liquid 01/08/20 22 023 Inactive take this in addition to BID prn order Lyrica 100 mg capsule RxNorm: 427665 Take 1 Capsule(s) Oral QAM every morning 01/08/20 22 022 Inactive d/c 50mg dose acetaminophen 500 mg tablet RxNorm: 416253 Take 1 Tablet(s) Oral TID 01/08/20 22 022 Inactive d/c PRN order Lyrica 150 mg capsule RxNorm: 560861 Take 1 Capsule(s) Oral QHS every night at bedtime 01/08/20 22 023 Inactive d/c 100mg dose Abilify 5 mg tablet RxNorm: 142382 Take 1 Tablet(s) Oral QD take 1 tab po QD #30 refill 5 dx: MDD 12/12/19 22 022 Inactive Abilify 5 mg tablet RxNorm: 387488 Take 1 Tablet(s) Oral QD take 1 tab po QD #30 refill 5 dx: MDD 12/12/19 22 022 Inactive Novolog Flexpen U-100 Insulin aspart 100 unit/mL (3 mL) subcutaneous RxNorm: 4268596 Inject 42 Unit(s) Subcutaneous TID in addition to sliding scale 12/10/19 22 022 Inactive d/c 36u chlorthalidone 25 mg tablet RxNorm: 229061 Take 1 Tablet(s) Oral QAM every morning 12/10/19 22 023 Inactive pregabalin 50 mg capsule RxNorm: 272240 Take 1 Capsule(s) Oral QAM every morning 11/12/19 22 022 Inactive tetanus-diphtheria toxoids-Td 2 Lf unit-2 Lf unit/0.5 mL IM suspension RxNorm: 139 Take 0.5 Miscellaneous Intramuscular 11/12/19 22 022 Inactive need tdap - nursing to administer upon arrival pregabalin 50 mg capsule RxNorm: 882778 Take 1 Capsule(s) Oral QAM every morning 10/16/19 22 022 Inactive pregabalin 50 mg capsule RxNorm: 975140 Take 1 Capsule(s) Oral QAM every morning 10/16/19 22 022 Inactive pregabalin 50 mg capsule RxNorm: 885839 1 Capsule(s) Oral QAM every morning 10/15/19 22 022 Inactive Shingrix (PF) 50 mcg/0.5 mL intramuscular suspension, kit RxNorm: 1038607 Administer 1/2 Milliliter(s) Intramuscular one time Nursing please administer upon arrival and once administered post a bridge message with date of administration, dividend deposit voucher clerk, expiration date, and lot# so we can update [facility]. 10/09/19 22 022 Inactive shingrix step 1 Shingrix (PF) 50 mcg/0.5 mL intramuscular suspension, kit RxNorm: 0269817 Administer 1/2 Milliliter(s) Intramuscular one time Nursing please administer upon arrival and once administered post a bridge message with date of administration, dividend deposit voucher clerk, expiration date, and lot# so we can update [facility]. 10/09/19 22 022 Inactive shingrix step 1 cholecalciferol (vitamin D3) 1,250 mcg (50,000 unit) capsule RxNorm: 440131 Take 1 Capsule(s) Oral QW once a [...] aspart 100 unit/mL (3 mL) subcutaneous RxNorm: 3666115 Inject 10 Unit(s) Subcutaneous QHS every night at bedtime with nighttime snack 10/08/19 22 Inactive Shingrix (PF) 50 mcg/0.5 mL intramuscular suspension, kit RxNorm: 0838854 ADMINISTER 2-DOSE SERIES PER CDC GUIDELINES 10/08/19 22 Active Shingrix (PF) 50 mcg/0.5 mL intramuscular suspension, kit RxNorm: 3957986 ADMINISTER 2-DOSE SERIES PER CDC GUIDELINES 10/08/19 22 022 Inactive Novolog Flexpen U-100 Insulin aspart 100 unit/mL (3 mL) subcutaneous RxNorm: 1053065 Inject 36 Unit(s) Subcutaneous TID in addition to sliding scale 10/08/19 22 Inactive Novofine Autocover 30 gauge x 1/3 needle RxNorm: Use 1 Miscellaneous UD as directed Use 1 needle as directed to administer insulin 5 times a day Dx:E11.42. 10/03/19 Inactive ok to substitute with any covered alternative pen needle benzoyl peroxide 10 % topical cleanser RxNorm: 831770 Apply 1 Application Topical QD apply to face, wash rinse and dry once daily (may change to QOD if drying) 08/19/19 22 022 Inactive (%covered by insurance) #60ml refill 11 dx: acne benzoyl peroxide 10 % topical cleanser RxNorm: 356617 Apply 1 Application Topical QD apply to face, wash rinse and dry once daily (may change to QOD if drying) 08/19/19 22 022 Inactive (%covered by insurance) #60ml refill 11 dx: acne benzoyl peroxide 10 % topical cleanser RxNorm: 553932 Apply 1 Application Topical QD apply to face, wash rinse and dry once daily (may change to QOD if drying) 08/19/19 22 022 Inactive (%covered by insurance) #60ml refill 11 dx: acne Lyrica 50 mg capsule RxNorm: 112366 Take 1 Capsule(s) Oral QAM every morning Take 1 capsule by mouth once daily 08/19/19 022 Inactive benzoyl peroxide 10 % topical cleanser RxNorm: 923541 Apply 1 Application Topical QD apply to face, wash rinse and dry once daily (may change to QOD if drying) 08/19/19 22 022 Inactive (%covered by insurance) #60ml refill 11 dx: acne Lyrica 100 mg capsule RxNorm: 370433 Take 1 Capsule(s) Oral QHS every night at bedtime Take 1 capsule by mouth once daily at bedtime 08/19/19 022 Inactive Lyrica 100 mg capsule RxNorm: 040564 Take 1 Capsule(s) Oral QHS every night at bedtime Take 1 capsule by mouth once daily at bedtime 08/16/19 22 022 Inactive Lyrica 50 mg capsule RxNorm: 477139 Take 1 Capsule(s) Oral QAM every morning Take 1 capsule by mouth once daily 08/16/19 22 04/01/2 022 Inactive Levemir FlexTouch U-100 Insulin 100 unit/mL (3 mL) subcutaneous pen RxNorm: 610809 Inject 86 Unit(s) Subcutaneous BID 08/05/19 22 022 Inactive d/c 83units BID Lyrica 100 mg capsule RxNorm: 597139 Take 1 Capsule(s) Oral QHS every night at bedtime Take 1 capsule by mouth once daily at bedtime 07/14/19 22 022 Inactive Lyrica 50 mg capsule RxNorm: 652158 Take 1 Capsule(s) Oral QAM every morning Take 1 capsule by mouth once daily 07/14/19 22 022 Inactive Levemir FlexTouch U-100 Insulin 100 unit/mL (3 mL) subcutaneous pen RxNorm: 576555 Inject 83 Unit(s) Subcutaneous BID 07/08/19 022 [...] 4 times daily and as needed. Dx:06/05/19 22 022 Inactive ok to substitute with [...] test strip hydralazine 50 mg tablet RxNorm: 302770 Take 1 Tablet(s) Oral QID 05/05/20 022 Inactive venlafaxine ER 225 mg tablet,extended release 24 hr RxNorm: 234437 Take 1 Tablet(s) Oral QD 05/05/20 021 Inactive venlafaxine ER 225 mg tablet,extended release 24 hr RxNorm: 068372 Take 1 Tablet(s) Oral QD 05/05/20 022 Inactive isosorbide mononitrate ER 30 mg tablet,extended release 24 hr RxNorm: 453351 Take 1 Tablet(s) Oral QD 05/05/20 024 Inactive hydralazine 50 mg tablet RxNorm: 294924 Take 1 Tablet(s) Oral QID 05/05/20 Inactive aspirin 81 mg tablet,delayed release RxNorm: 311504 Take 1 Tablet(s) Oral QD 03/31/20 022 Inactive Vitamin D2 1,250 mcg (50,000 unit) capsule RxNorm: 3354121 Take 1 Capsule(s) Oral QW once a week x 12 weeks 03/31/20 022 Inactive Vitamin D2 1,250 mcg (50,000 unit) capsule RxNorm: 8647635 Take 1 Capsule(s) Oral QW once a week 03/31/20 021 Inactive Zetia 10 mg tablet RxNorm: 401020 Take 1 Tablet(s) Oral QD 03/31/20 024 Inactive Zetia 10 mg tablet RxNorm: 028257 Take 1 Tablet(s) Oral QD 03/31/20 021 Inactive hydralazine 25 mg tablet RxNorm: 368474 Take 1 Tablet(s) Oral QID 03/31/20 021 Inactive hydralazine 25 mg tablet RxNorm: 853683 Take 1 Tablet(s) Oral QID 03/31/20 021 Inactive hydralazine 10 mg tablet RxNorm: 867394 Take 1 Tablet(s) Oral QID 03/03/20 021 Inactive cephalexin 500 mg tablet RxNorm: 988450 Take 1 Tablet(s) Oral QID 02/27/20 021 Inactive cephalexin 500 mg tablet RxNorm: 562497 Take 1 Tablet(s) Oral QID 02/27/20 021 Inactive lisinopril 40 mg tablet RxNorm: 394412 Take 1 Tablet(s) Oral QD 02/11/20 023 Inactive Eliquis 5 mg tablet RxNorm: 3818761 Take 1 Tablet(s) Oral BID 01/05/20 022 Inactive Eliquis 5 mg tablet RxNorm: 7236899 Take 2 Tablet(s) Oral QD 01/01/20 021 Inactive Lyrica 50 mg capsule RxNorm: 573775 Take 1 Capsule(s) Oral QAM every morning 12/24/19 021 Inactive Lyrica 100 mg capsule RxNorm: 979005 Take 1 Capsule(s) Oral QHS every night at bedtime 12/24/19 021 Inactive clotrimazole 1 % topical cream RxNorm: 266650 Apply to right foot and toes Topical BID 12/04/19 21 023 Inactive metoprolol succinate ER 200 mg tablet,extended release 24 hr RxNorm: 513494 Take 1 Tablet(s) Oral QD 12/04/19 023 Inactive ciprofloxacin 500 mg tablet RxNorm: 070989 Take 1 Tablet(s) Oral QD 11/30/19 021 Inactive DX ofloxacin otic drops Accu-Chek Guide test strips RxNorm: USE 1 TO CHECK GLUCOSE 4 TIMES DAILY AND NEEDED 11/15/19 21 023 Inactive Blood Glucose Test strips RxNorm: Use 1 Test Strip QID at PRN 11/05/19 21 06/25/2 023 Inactive E11.42 lisinopril 30 mg tablet RxNorm: 245492 Take 1 Tablet(s) Oral QD 10/30/19 21 021 Inactive lisinopril 20 mg tablet RxNorm: 991415 Take 1 Tablet(s) Oral QD 10/23/19 21 021 Inactive lisinopril 20 mg tablet RxNorm: 320493 Take 1 Tablet(s) Oral QD 10/23/19 21 021 Inactive lisinopril 10 mg tablet RxNorm: 051779 Take 1 Tablet(s) Oral QD 10/02/19 21 021 Inactive icosapent ethyl 1 gram capsule RxNorm: 4626410 Take 2 Capsule(s) (2 gm) Oral BID with meals 09/12/19 21 024 Inactive Okay to dispense one 2gm tab if you have that available. icosapent ethyl 1 gram capsule RxNorm: 8991381 Take 2 Capsule(s) Oral BID 09/12/19 21 021 Inactive Okay to dispense one 2gm tab if you have that available. amlodipine 10 mg tablet RxNorm: 320969 Take 1 Tablet(s) Oral QD 09/04/19 21 022 Inactive aspirin 81 mg tablet,delayed release RxNorm: 108877 Take 1 Tablet(s) Oral QD 09/04/19 21 021 Inactive Levemir FlexTouch U-100 Insulin 100 unit/mL (3 mL) subcutaneous pen RxNorm: 764392 Inject 150 Unit(s) Subcutaneous BID 09/04/19 21 022 Inactive venlafaxine ER 150 mg tablet,extended release 24 hr RxNorm: 957589 Take 1 Tablet(s) Oral QD 09/04/19 21 021 Inactive clotrimazole-betame thasone 1 %-0.05 % topical cream RxNorm: 338163 Apply to rash on red area on left abdomen/chest Topical BID 08/10/19 21 021 Inactive amlodipine 5 mg tablet RxNorm: 161700 Take 1 Tablet(s) Oral QD 07/31/19 21 021 Inactive cephalexin 500 mg tablet RxNorm: 130005 Take 1 Tablet(s) Oral BID BID - Twice Daily 07/31/19 21 021 Inactive Start 08/01/20 pantoprazole 40 mg tablet,delayed release RxNorm: 832168 Take 1 Tablet(s) Oral QAM every morning 07/08/19 Inactive senna 8.6 mg tablet RxNorm: 083708 Take 1 Tablet(s) Oral QD 07/08/19 Inactive carbamazepine 200 mg tablet RxNorm: 790801 Take 1 Tablet(s) Oral BID 07/08/19 022 Inactive clopidogrel 75 mg tablet RxNorm: 145247 Take 1 Tablet(s) Oral QD 07/08/19 021 Inactive Blood Glucose Test strips RxNorm: Use 1 Test Strip QID at PRN 07/08/19 Inactive E11.42 Novolog Flexpen U-100 Insulin aspart 100 unit/mL (3 mL) subcutaneous RxNorm: 7085478 Administer per sliding scale Milliliter(s) Subcutaneous TID 151-200: 10 u; 201-250: 20 u; 251-300: 30 u; 301-350: 40 u; 351-400: 50 u. 07/08/19 022 Inactive lisinopril 5 mg tablet RxNorm: 987224 Take 1 Tablet(s) Oral QD 07/08/19 Inactive Novolog Flexpen U-100 Insulin aspart 100 unit/mL (3 mL) subcutaneous RxNorm: 7747865 Inject 85 Unit(s) Subcutaneous TID 07/08/19 022 Inactive pravastatin 80 mg tablet RxNorm: 002171 Take 1 Tablet(s) Oral QHS every night at bedtime 07/08/19 023 Inactive clotrimazole 1 % topical cream RxNorm: 341832 Apply to bilateral groin areas Topical BID 07/08/19 21 022 Inactive metoprolol succinate ER 200 mg tablet,extended release 24 hr RxNorm: 115577 Take 1 Tablet(s) Oral QD 07/08/19 021 Inactive Vitamin D3 25 mcg (1,000 unit) tablet RxNorm: 043324 Take 1 Tablet(s) Oral QD 07/08/19 021 Inactive isosorbide dinitrate 30 mg tablet RxNorm: 828780 Take 1 Tablet(s) Oral QD 07/08/19 021 Inactive Levemir FlexTouch U-100 Insulin 100 unit/mL (3 mL) subcutaneous pen RxNorm: 402699 Inject 140 Unit(s) Subcutaneous BID 07/08/19 021 Inactive torsemide 20 mg tablet RxNorm: 245540 Take 1 Tablet(s) Oral QD 07/08/19 023 Inactive venlafaxine 75 mg tablet RxNorm: 416640 Take 1 Tablet(s) Oral QD 07/08/19 Inactive acetaminophen 500 mg tablet RxNorm: 618540 Take 1 Tablet(s) Oral TID as needed for headache 06/18/19 021 Inactive acetaminophen 500 mg tablet RxNorm: 561790 Take 1 Tablet(s) Oral TID as needed for headache 06/18/19 021 Inactive Lyrica 100 mg capsule RxNorm: 673322 Take 1 Capsule(s) Oral QHS every night at bedtime 06/11/19 021 Inactive Lyrica 50 mg capsule RxNorm: 381107 Take 1 Capsule(s) Oral QAM every morning 06/10/19 021 Inactive hydrocortisone 2.5 % topical cream RxNorm: 863374 Apply to bilateral groin creases Topical BID 05/15/20 20 021 Inactive clotrimazole 1 % topical cream RxNorm: 907599 Apply to bilateral groin areas Topical BID 05/15/20 20 021 Inactive Lyrica 50 mg capsule RxNorm: 342523 Take 1 Capsule(s) Oral QAM every morning 05/14/20 20 Inactive Lyrica 100 mg capsule RxNorm: 709005 Take 1 Capsule(s) Oral QHS every night at bedtime 05/14/20 20 Inactive Lancets,Thin 28 gauge RxNorm: Use 1 as directed QID and PRN 04/24/20 20 12/09/2 020 Inactive Blood Glucose Monitoring [...] Inactive Nystop 100,000 unit/gram topical powder RxNorm: 751917 Apply to abd folds, under breasts and L side of groin Topical BID x 14 days, then BID PRN 04/08/20 20 Inactive dx: yeast dermatitis Lyrica 100 mg capsule RxNorm: 990381 Take 1 Capsule(s) Oral QHS every night at bedtime 03/13/20 20 Inactive Lyrica 50 mg capsule RxNorm: 203220 Take 1 Capsule(s) Oral QAM every morning 03/13/20 20 Inactive ketoconazole 2 % shampoo RxNorm: 307362 Apply Topical two times a week with showers 03/11/20 20 024 Inactive cholecalciferol (vitamin D3) 50 mcg (2,000 unit) tablet RxNorm: 002050 Take 1 Tablet(s) Oral QD 03/11/20 20 021 Inactive Zetia 10 mg tablet RxNorm: 262223 Take 1 Tablet(s) Oral QD 03/07/20 20 021 Inactive Zetia 10 mg tablet RxNorm: 997273 Take 1 Tablet(s) Oral QD 03/07/20 20 020 Inactive Lyrica 50 mg capsule RxNorm: 907816 Take 1 Capsule(s) Oral QAM every morning 02/15/20 20 Inactive Lyrica 100 mg capsule RxNorm: 766340 Take 1 Capsule(s) Oral QHS every night at bedtime 02/15/20 Inactive Lyrica 100 mg capsule RxNorm: 848156 Take 1 Capsule(s) Oral QHS every night at bedtime 02/15/20 Inactive Lyrica 50 mg capsule RxNorm: 117250 Take 1 Capsule(s) Oral QAM every morning 02/15/20 Inactive metoprolol succinate ER 200 mg tablet,extended release 24 hr RxNorm: 142860 Take 1 Tablet(s) Oral QD 08/11 Activeloperamide 2 mg capsuleRxNorm: 059511Onqw 1 Capsule(s) Oral QID as needed 06/12/2021ctivehydralazine 50 mg tabletRxNorm: 473844Popd 1 Tablet(s) Oral QID 08/11/2022ctivevenlafaxine ER 75 mg capsule,extended release 24 hrRxNorm: 926331Ftkg 3 Capsule(s) Oral QD/Inactivepolyethylene glycol 3350 17 gram/dose oral powderRxNorm: 882669Urbv 17=1 capful Gram(s) Oral BID as needed mix with 4-8oz of djlkle64/27//Inactiveicosapent ethyl 1 gram capsuleRxNorm: 8035626Qkqx 2 Capsule(s) (2 gm) Oral BID with meals /InactiveOkay to dispense one 2gm tab if you have that available.Levemir FlexTouch U-100 Insulin 100 unit/mL (3 mL) subcutaneous pen RxNorm: 143922Rbdoth 80 Unit(s) Subcutaneous BID07/14//Inactive Novolog Flexpen U-100 Insulin aspart 100 unit/mL (3 mL) subcutaneousRxNorm: 8783023Rcxkar 30 Unit(s) Subcutaneous TID with meals/Inactive Medication Administered No Medication Administered data Reason For Visit No Reason For Visit data Plan of Care Planned Activity Notes Codes Status Date Referral: [facility] WPtel: [address], [address] [id number] USReferralRecords Yltsniir23/08/2023Referral: [facility] WPtel: [address] [id number]/12/2022Referral: General CardiologyReferralCompleted 1Referral: General PsychologistReferralClosedReferral: General PsychiatristReferralPatient/Family [...] [facility]. Sister Jyotsna involved in his care cell# [phone] Guardian: Don (tapan met in person 09/01/21), [...] note from 11.08.2023 at [facility] (follow up 6 months) 12/14/2023
--- OUTSIDE RECORDS SUMMARY | 2023-12-27 06:08 | XMS_ITS | CCD ---
Author Name Cecilio Durham feliberto Address [address] [place] [address] Phone Organization [facility] Phone Care Team Providers Care Bookkeeping Manager Name Role Phone Harrison Durham Primary Care Provider Leona vailable Harrison Durham Chronic Care Management U navailable Summary Purpose DataExchange Insurance Providers Payer name Policy type / Coverage type Covered libertarian ID Effective Begin Date Effective End Date Medicare [place] Part B [id number] Unknown Unknown [place] Part B [id number] Unknown Unknown Family history Sister Brittany Suggs [...] Unknown [facility] 09/03/[address]: 0541265 Non-Smoker / No History of Smoking 09/02/[address]: 796330085 No Alcohol Consum ption 09/02/2020 Allergies, Adverse Reactions, Alerts Substance Reaction Codes Entered Date Inactivated Date Status * NO KNOWN FOOD ALLERGIES Nhfyjhb9207/13/2023No Inactive DateActiveLISINOPRILRxNorm: 7734687No Inactive DateActiveMetformin IYaKomalub31/28/2020No Inactive DateActive* NO KNOWN ENVIRONMENTAL QHZXUMSMNFnijchx28/27/2024No Inactive DateActive Problems Condition Codes Effective Dates Condition St atus Constipation by delayed colonic transit ICD-10: K59.01 ICD-9: 564.0107/ctiveHx of deep venous thrombosisICD-10: Z86.718 ICD-9: V12.51012/14/2023ctiveHypercoagulable stateICD-10: D68.59 ICD-9: 289.8107/ctiveHypertensive heart disease without heart failure ICD-10: I11.9 ICD-9: 402.9007/ctiveStage 2 chronic 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ICD-10: E11.22 ICD-9: 250.4007/ctiveType 2 diabetes mellitus with diabetic polyneuropathy, with long-term current use of insulinICD-10: E11.42 ICD-9: 250.6007/ctiveVitamin D deficiencyICD-10: E55.9 ICD-9: 268.907ctiveHypokalemiaICD-10: E87.6 ICD-9: 276.806/ctiveLower extremity edemaICD-10: R60.0 ICD-9: 782.306ctiveMajor depression, recurrentICD-10: F33.9 ICD-9: 296.3006ctiveOnychogryposisICD-10: L60.2 ICD-9: 703.8011/09/2023ctivePVD (peripheral vascular disease)ICD-10: I73.9 ICD-9: 443.9011/09/2023ctiveBMI 60.0-69.9, adultICD-10: Z68.44 ICD-9: V85.4405ctiveCandidal intertrigoICD-10: B37.2 ICD-9: 112.305/ctiveHistory of anemia due to CKDICD-10: N18.9 ICD-9: 585.905ctiveLearning disabilityICD-10: F81.9 ICD-9: 315.205ctiveParaparesis of both lower limbsICD-10: G82.20 ICD-9: 344.105/ctiveReducible umbilical herniaICD-10: K42.9 ICD-9: 553.105ctiveSeizure disorderICD-10: G40.909 ICD-9: 345.9005/4ActiveCallus of heelICD-10: L84 ICD-9: 97696/esolvedGout due to renal impairmentICD-10: M10.30 ICD-9: 274.1005esolvedHyperhidrosis of palmsICD-10: L74.512 ICD-9: 705.2105esolvedHyperlipidemia, unspecifiedICD-10: E78.5 ICD-9: 272.405/esolvedOther intermediate (current) drug therapyICD-10: Z79.899 ICD-9: V58.6905esolvedPain of right heelICD-10: M79.671 ICD-9: 729.505/esolvedStage 2 chronic kidney diseaseICD-10: N18.2 ICD-9: 585.205esolvedTinea pedis of both feetICD-10: B35.3 ICD-9: 110.405esolvedAmputated toe of right footICD-10: S98.131A ICD-9: 895.004/ctiveDiabetic neuropathy associated with type 2 diabetes mellitusICD-10: E11.40 ICD-9: 250.6004/4ActiveHyperlipidemia associated with type 2 diabetes mellitusICD-10: E11.69 ICD-9: 250.8004ctiveRecurrent major depressive disorder, in partial remissionICD-10: F33.41 ICD-9: 296.35044ActiveCellulitisICD-10: L03.90 ICD-9: 682.904esolvedDandruff in adultICD-10: L21.0 ICD-9: 690.1804esolvedEncounter for other specified special examinationsICD-10: Z01.89 ICD-9: V72.8504/esolvedEncounter for screening for nutritional disorder ICD-10: Z13.21 ICD-9: V77.9904/23/2024ResolvedImpacted cerumen, left earICD-10: H61.22 ICD-9: 380.404/4ResolvedShortness of breathICD-10: R06.02 ICD-9: 786.0504/4ResolvedSkin tagICD-10: L91.8 ICD-9: 701.904/esolvedCoronary artery disease involving [place] coronary artery of [place] heart, angina presence unspecifiedICD-10: I25.10 ICD-9: 414.0102/4ActiveInappropriate sexual behaviorICD-10: Z72.89 ICD-9: 312.8910/ctiveAnnual physical examICD-10: Z00.00 ICD-9: V70.009/ctivePre-op evaluationICD-10: Z01.818 ICD-9: V72.8403/ctiveSecondary hypertensionICD-10: I15.9 ICD-9: 405.9903ctiveDepressionICD-10: F32.9 ICD-9: 40235/2ResolvedDVT (deep venous thrombosis)ICD-10: I82.409 ICD-9: 453.40092ResolvedEncounter for [...] to other viral communicable diseasesICD-10: Z20.828 ICD-9: V01.79022374SsuksxepIvmiholbFrphfiu82/28/2020ActiveDiabetes mellitus Type 4Yghggsi05/28/2020ActiveAnemia in chronic kidney diseaseICD-10: D63.1 02/12/2020ResolvedHyperlipidemia, unspecifiedICD-10: E78.Resolved Medications Medication Codes Instructions Start Date Stop Date Status Fill Instructions acetaminophen 500 mg tablet RxNorm: 741070 (MAX APAP:4GM/24HR) Take 1 Tablet(s) Oral TID as needed for pain 12/10/19 24 024 Active torsemide 20 mg tablet RxNorm: 412105 Take 1 Tablet(s) Oral QD 10/26/19 24 024 Inactive potassium chloride ER 20 mEq tablet,extended release RxNorm: 19800522 Take 2 Tablet(s) Oral BID 10/26/19 24 025 Active torsemide 20 mg tablet RxNorm: 671870 Take 1 Tablet(s) Oral QD 10/26/19 24 024 Inactive potassium chloride ER 20 mEq tablet,extended release RxNorm: 19800522 Take 2 Tablet(s) Oral BID 10/26/19 24 024 Inactive Artificial Tears (PF) 0.1 %-0.3 % drops in a dropperette RxNorm: 304809 Apply 1-2 Drop(s) Both eyes BID as needed 09/28/19 24 025 Active erythromycin 5 mg/gram (0.5 %) eye ointment RxNorm: 618734 Apply 1 Application Both eyes QHS every night at bedtime Instill ~1 cm ribbon into affected eye 09/28/19 24 024 Inactive Artificial Tears (PF) 0.1 %-0.3 % drops in a dropperette RxNorm: 418278 Apply 1-2 Drop(s) Both eyes BID as needed 09/28/19 24 Inactive erythromycin 5 mg/gram (0.5 %) eye ointment RxNorm: 307173 Apply 1 Application Both eyes QHS every night at bedtime Instill ~1 cm ribbon into affected eye 09/28/19 24 Inactive acetaminophen 500 mg tablet RxNorm: 427911 (MAX APAP:4GM/24HR) Take 1 Tablet(s) Oral TID as needed for pain 09/24/19 24 Inactive carvedilol 25 mg tablet RxNorm: 977953 Take 1 Tablet(s) Oral QD 09/08/19 24 No Stop Date Active pregabalin 100 mg capsule RxNorm: 661026 Take 1 Capsule(s) Oral QAM every morning 09/07/19 24 Active rosuvastatin 40 mg tablet RxNorm: 513010 Take 1 Tablet(s) Oral QPM every evening 07/13/19 24 No Stop Date Active ezetimibe 10 mg tablet RxNorm: 140273 Take 1 Tablet(s) Oral QD 07/13/19 24 No Stop Date Active bisacodyl 10 mg rectal suppository RxNorm: 973594 Insert 1 Suppository Rectal QD as needed 07/13/19 24 No Stop Date Active polyethylene glycol 3350 17 gram/dose oral powder RxNorm: 954438 Take 17 Gram(s) Oral BID as needed mix in 4-8ox water 07/13/19 24 No Stop Date Active ketoconazole 2 % shampoo RxNorm: 084274 Apply 1 Application Topical UD as directed 07/13/19 24 No Stop Date Active aripiprazole 15 mg tablet RxNorm: 189858 Take 1/2 Tablet(s) Oral QD 07/13/19 24 No Stop Date Active Ozempic 1 mg/dose (4 mg/3 mL) subcutaneous pen injector RxNorm: 6061735 Inject 1 Milligram(s) Subcutaneous QW once a week 07/13/19 24 No Stop Date Active Guaifenesin AC 10 mg-100 mg/5 mL oral liquid RxNorm: 129296 Take 10 Milliliter(s) Oral Q4H every four hours as needed 07/13/19 24 No Stop Date Active isosorbide mononitrate ER 60 mg tablet,extended release 24 hr RxNorm: 454386 Take 1 Tablet(s) Oral QD 07/13/19 24 No Stop Date Active ammonium lactate 12 % topical cream RxNorm: 386121 Apply 1 Application Topical BID 07/13/19 24 No Stop Date Active hydrocortisone 2.5 % topical cream RxNorm: 347008 Apply 1 Application Topical BID as needed 07/13/19 24 No Stop Date Active rosuvastatin 20 mg sprinkle capsule RxNorm: 9570196 Take 1 Capsule(s) Oral QD 07/13/19 24 No Stop Date Active Vascepa 1 gram capsule RxNorm: 4143617 Take 2 Capsule(s) Oral BID 07/13/19 24 No Stop Date Active venlafaxine ER 75 mg capsule,extended release 24 hr RxNorm: 201259 Take 3 Capsule(s) Oral QD 07/13/19 24 No Stop Date Active Basaglar KwikPen U-100 Insulin 100 unit/mL (3 mL) subcutaneous RxNorm: 2051910 Inject 30U SubQ twice daily 07/07/19 24 025 Active Please dispense one month supply. Basaglar KwikPen U-100 Insulin 100 unit/mL (3 mL) subcutaneous RxNorm: 2608775 Inject 30U SubQ twice daily 07/07/19 24 024 Inactive Please dispense one month supply. pregabalin 150 mg capsule RxNorm: 333349 Take 1 Capsule(s) Oral QHS every night at bedtime 07/05/19 24 024 Active pregabalin 150 mg capsule RxNorm: 859524 Take 1 Capsule(s) Oral QHS every night at bedtime 07/05/19 24 024 Inactive polyethylene glycol 3350 17 gram/dose oral powder RxNorm: 191392 Take 1 Packet Oral QD as needed (1 packet = 17g) mix with 4-8oz of liquid 06/15/19 24 024 Inactive bisacodyl 10 mg rectal suppository RxNorm: 767128 Insert one suppository per rectum once daily as needed for constipation 06/15/19 24 024 Inactive bisacodyl 10 mg rectal suppository RxNorm: 313108 Insert one suppository per rectum once daily as needed for constipation 06/15/19 24 024 Inactive pregabalin 100 mg capsule RxNorm: 817593 Take 1 Capsule(s) Oral QAM every morning 04/27/20 024 Inactive Levemir FlexPen 100 unit/mL (3 mL) solution subcutaneous insulin pen RxNorm: 421077 Inject 30 Unit(s) Subcutaneous BID 04/27/20 024 Inactive rosuvastatin 40 mg tablet RxNorm: 249580 Take 1 Tablet(s) Oral QPM every evening 04/16/20 024 Inactive D/C rosuvastatin 20mg venlafaxine ER 75 mg capsule,extended release 24 hr RxNorm: 963938 Take 3 Capsule(s) Oral QD 04/14/20 023 Inactive pregabalin 100 mg capsule RxNorm: 162782 Take 1 Capsule(s) Oral QAM every morning [...] meter clotrimazole 1 % topical cream RxNorm: 115748 Take apply topically to abdominal folds twice daily for 14 days 03/12/20 024 Inactive Ozempic 1 mg/dose (4 mg/3 mL) subcutaneous pen injector RxNorm: 8781679 Inject 1 Milligram(s) Subcutaneous QW once a week 03/11/20 023 Inactive rosuvastatin 20 mg tablet RxNorm: 091384 Take 1 Tablet(s) Oral QD 02/26/20 023 Inactive d/c pravastatin 80mg Ozempic 1 mg/dose (4 mg/3 mL) subcutaneous pen injector RxNorm: 9805416 Inject 1 Milligram(s) Subcutaneous QW once a week 02/20/20 23 023 Inactive pregabalin 150 mg capsule RxNorm: 618480 Take 1 Capsule(s) Oral HS at bed time 02/19/20 023 Inactive pregabalin 100 mg capsule RxNorm: 557226 Take 1 Capsule(s) Oral QAM every morning 02/18/20 023 Inactive venlafaxine ER 75 mg capsule,extended release 24 hr RxNorm: 180098 Take 3 Capsule(s) Oral QD 02/04/20 23 023 Inactive FreeStyle Chema 2 Sensor kit RxNorm: use as directed 02/04/20 023 Inactive FreeStyle Chema 2 Sensor kit RxNorm: use as directed 02/04/20 024 Inactive fluconazole 150 mg tablet RxNorm: 696942 Take 1 Tablet(s) Oral on day 3 and on day 6 02/03/20 024 Active chlorthalidone 25 mg tablet RxNorm: 994754 Take 1 Tablet(s) Oral QAM every morning 02/03/20 23 No Stop Date Active venlafaxine ER 150 mg capsule,extended release 24 hr RxNorm: 447189 Take 1 Capsule(s) Oral QD 02/03/20 023 Inactive acetaminophen 500 mg tablet RxNorm: 602922 1 TABLET ORALLY 3 TIMES DAILY (MAX APAP:4GM/24HR) 12/15/19 23 023 Inactive clotrimazole 1 % topical cream RxNorm: 666178 apply 1g topically to top of feet and in between toes BID 12/09/19 23 023 Inactive potassium chloride ER 20 mEq tablet,extended release RxNorm: 949567 Take 1 Tablet(s) Oral BID 12/09/19 23 024 Inactive d/c 20mEq once daily (sent from hospital) nystatin 100,000 unit/gram topical powder RxNorm: 144729 APPLY TO AFFECTED AREAS TOPICALLY 2 TIMES DAILY 11/21/19 23 024 Inactive Nystop 100,000 unit/gram topical powder RxNorm: 589332 Apply to abd folds, under breasts and L side of groin Topical BID x 14 days, then BID PRN 11/20/19 23 023 Inactive dx: yeast dermatitis Beng[place] Ultra Strength 4 %-30 %-10 % topical cream RxNorm: 887852 Apply 1 Gram(s) Topical QID PRN to feet and legs for neuropathic pain 11/11/19 23 024 Inactive clotrimazole 1 % topical cream RxNorm: 162887 Apply 1/2 Gram(s) Topical BID Apply to affected areas of groin, periarea, and abdominal topically 2 times daily 11/10/19 23 023 Inactive hydrocortisone 2.5 % topical cream RxNorm: 751752 Apply 1/2 Gram(s) Topical BID as needed 11/10/19 024 Inactive Humulin R U-500 (Concentrated) Insulin 500 unit/mL subcutaneous soln RxNorm: 947787 Inject 100 Unit(s) Subcutaneous TID 10/07/19 024 Inactive Levemir FlexPen 100 unit/mL (3 mL) solution subcutaneous insulin pen RxNorm: 223317 Inject 30 Unit(s) Subcutaneous BID 10/07/19 23 023 Inactive Ozempic 0.25 mg or 0.5 mg (2 mg/3 mL) subcutaneous pen injector RxNorm: 3610287 Inject 1/2 Milligram(s) Subcutaneous QW once a week 10/07/19 23 024 Inactive aripiprazole 15 mg tablet RxNorm: 377494 1/2 TAB (7.5MG) ORALLY DAILY (DX:MAJOR DEPRESSIVE DISORDER) 09/23/19 23 023 Inactive Lancets,Thin 28 gauge RxNorm: Use 1 as directed QID 09/15/19 23 024 Inactive Accu-Chek Guide test strips RxNorm: Use 1 Test Strip QID 09/15/19 23 023 Inactive ok to substitute with any covered alternative test strip torsemide 20 mg tablet RxNorm: 594242 Take 1 Tablet(s) Oral BID 09/09/19 23 024 Inactive d/c once daily dosing carvedilol 25 mg tablet RxNorm: 648959 Take 1 Tablet(s) Oral QD 08/25/19 23 024 Inactive pregabalin 150 mg capsule RxNorm: 827930 1 Capsule(s) Oral HS at bed time 08/18/19 23 023 Inactive pregabalin 100 mg capsule RxNorm: 941418 1 Capsule(s) Oral QAM every morning 08/18/19 23 023 Inactive carvedilol 25 mg tablet RxNorm: 502303 1 Tablet(s) Oral QD 07/28/19 23 023 Inactive lisinopril 20 mg tablet RxNorm: 872041 Give 1 Tablet(s) Oral QD 07/28/19 23 023 Inactive Lyrica 150 mg capsule RxNorm: 403740 Take 1 Capsule(s) Oral QHS every night at bedtime 07/19/19 023 Inactive d/c 100mg dose Diflucan 150 mg tablet RxNorm: 957492 Take 1 Tablet(s) Oral QD repeat on day 3 and 6 07/19/19 23 023 Inactive pregabalin 100 mg capsule RxNorm: 299252 Take 1 Capsule(s) Oral QAM every morning 07/19/19 23 023 Inactive gatifloxacin 0.5 % eye drops RxNorm: 267215 Instill 1 Drop(s) as directed TID Instill 1 drop in to affected eye(s) starting 1 day prior to surgery and continue until gone (do not exceed 4 weeks). 07/13/19 023 Inactive carvedilol 25 mg tablet RxNorm: 252501 2 Tablet(s) Oral BID 07/13/19 23 023 Inactive Humulin R Regular U-100 Insulin 100 unit/mL injection solution RxNorm: 604943 85 Unit(s) Injection TID 07/13/19 23 023 Inactive ketorolac 0.5 % eye drops RxNorm: 084320 Instill 1 Drop(s) as directed QID Instill 1 drop into affected eye(s) 4 times daily starting 1 day prior to surgery and continue until gone (do not exceed 4 weeks). 07/13/19 23 023 Inactive Diflucan 150 mg tablet RxNorm: 917787 Take 1 Tablet(s) Oral QD repeat on day 3 and 6 06/30/19 23 023 Inactive Accu-Chek Guide test strips RxNorm: Use 1 Test Strip QID Use 1 test strip to monitor blood glucose 4 times daily and as needed. Dx:E11.42. 06/23/19 23 023 Inactive ok to substitute with any covered alternative test strip dextromethorphan-gu aifenesin 10 mg-100 mg/5 mL oral liquid RxNorm: 954640 Take 10 Milliliter(s) Oral every 4 hours as needed for cough 06/19/19 23 023 Inactive dextromethorphan-gu aifenesin 10 mg-100 mg/5 mL oral liquid RxNorm: 743274 Take 10 Milliliter(s) Oral every 4 hours as needed for cough 06/19/19 023 Inactive Lyrica 150 mg capsule RxNorm: 040896 Take 1 Capsule(s) Oral QHS every night at bedtime 06/18/19 023 Inactive d/c 100mg dose aripiprazole 15 mg tablet RxNorm: 376394 1/2 TAB (7.5MG) ORALLY DAILY (DX:MAJOR DEPRESSIVE DISORDER) 06/05/19 23 023 Inactive pregabalin 100 mg capsule RxNorm: 513010 1 Capsule(s) Oral QAM every morning 06/02/19 23 023 Inactive Banophen 50 mg capsule RxNorm: 7648389 Take 1 Capsule(s) Oral Q6H every 6 hours as needed 05/19/19 23 No Stop Date Active Novolog Flexpen U-100 Insulin aspart 100 unit/mL (3 mL) subcutaneous RxNorm: 5926637 Inject 10 Unit(s) Subcutaneous QHS every night at bedtime with nighttime snack 04/08/20 22 022 Inactive Novolog Flexpen U-100 Insulin aspart 100 unit/mL (3 mL) subcutaneous RxNorm: 6122444 Inject 42 Unit(s) Subcutaneous TID in addition to sliding scale 04/08/20 22 022 Inactive d/c 36u albuterol sulfate HFA 90 mcg/actuation aerosol inhaler RxNorm: 7087672 Take 2 Puff(s) Inhalation Q4H every four hours as needed as needed for SOB, cough, or wheezing 04/07/20 030 Active Banophen 50 mg capsule RxNorm: 9871932 Take 1 Capsule(s) Oral Q6H every 6 hours as needed 04/06/20 023 Inactive diphenhydramine 50 mg tablet RxNorm: 5738422 Take 1 Tablet(s) Oral Q6H every 6 hours as needed 04/06/20 022 Inactive diphenhydramine 50 mg tablet RxNorm: 4615070 1 Tablet(s) Oral Q6H every 6 hours as needed 04/06/20 022 Inactive Abilify 15 mg tablet RxNorm: 754223 1/2 Tablet(s) Oral QD 03/10/20 023 Inactive Shingrix (PF) 50 mcg/0.5 mL intramuscular suspension, kit RxNorm: 1337411 Administer 1/2 Milliliter(s) Intramuscular QD one time shingrix step 2 ( step 1 given 11/04/21) WITH needle - Nursing please administer upon arrival and once administered post a bridge message with date of administration, 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, expiration date, and lot# so we can update [facility] 02/18/20 22 022 Inactive dispense with needle Shingrix (PF) 50 mcg/0.5 mL intramuscular suspension, kit RxNorm: 6086647 Administer 1/2 Milliliter(s) Intramuscular QD one time shingrix step 2 ( step 1 given 11/04/21) WITH needle - Nursing please administer upon arrival and once administered post a bridge message with date of administration, 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, expiration date, and lot# so we can update [facility] 02/18/20 22 022 Inactive dispense with needle polyethylene glycol 3350 17 gram/dose oral powder RxNorm: 752456 Take 17=1 capful Gram(s) Oral QD mix with 4-8oz of liquid 01/08/20 22 023 Inactive take this in addition to BID prn order Lyrica 100 mg capsule RxNorm: 596401 Take 1 Capsule(s) Oral QAM every morning 01/08/20 22 022 Inactive d/c 50mg dose acetaminophen 500 mg tablet RxNorm: 929411 Take 1 Tablet(s) Oral TID 01/08/20 22 022 Inactive d/c PRN order Lyrica 150 mg capsule RxNorm: 293758 Take 1 Capsule(s) Oral QHS every night at bedtime 01/08/20 22 023 Inactive d/c 100mg dose Abilify 5 mg tablet RxNorm: 131252 Take 1 Tablet(s) Oral QD take 1 tab po QD #30 refill 5 dx: MDD 12/12/19 22 022 Inactive Abilify 5 mg tablet RxNorm: 656725 Take 1 Tablet(s) Oral QD take 1 tab po QD #30 refill 5 dx: MDD 12/12/19 22 022 Inactive Novolog Flexpen U-100 Insulin aspart 100 unit/mL (3 mL) subcutaneous RxNorm: 6686367 Inject 42 Unit(s) Subcutaneous TID in addition to sliding scale 12/10/19 22 022 Inactive d/c 36u chlorthalidone 25 mg tablet RxNorm: 114264 Take 1 Tablet(s) Oral QAM every morning 12/10/19 22 023 Inactive pregabalin 50 mg capsule RxNorm: 247299 Take 1 Capsule(s) Oral QAM every morning 11/12/19 Inactive tetanus-diphtheria toxoids-Td 2 Lf unit-2 Lf unit/0.5 mL IM suspension RxNorm: 139 Take 0.5 Miscellaneous Intramuscular 11/12/19 22 022 Inactive need tdap - nursing to administer upon arrival pregabalin 50 mg capsule RxNorm: 454749 Take 1 Capsule(s) Oral QAM every morning 10/16/19 22 022 Inactive pregabalin 50 mg capsule RxNorm: 664964 Take 1 Capsule(s) Oral QAM every morning 10/16/19 22 022 Inactive pregabalin 50 mg capsule RxNorm: 879951 1 Capsule(s) Oral QAM every morning 10/15/19 22 022 Inactive Shingrix (PF) 50 mcg/0.5 mL intramuscular suspension, kit RxNorm: 9243921 Administer 1/2 Milliliter(s) Intramuscular one time Nursing please administer upon arrival and once administered post a bridge message with date of administration, 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, expiration date, and lot# so we can update [facility]. 10/09/19 22 022 Inactive shingrix step 1 Shingrix (PF) 50 mcg/0.5 mL intramuscular suspension, kit RxNorm: 1697669 Administer 1/2 Milliliter(s) Intramuscular one time Nursing please administer upon arrival and once administered post a bridge message with date of administration, 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, expiration date, and lot# so we can update [facility]. 10/09/19 22 022 Inactive shingrix step 1 cholecalciferol (vitamin D3) 1,250 mcg (50,000 unit) capsule RxNorm: 857699 Take 1 Capsule(s) Oral QW once a [...] aspart 100 unit/mL (3 mL) subcutaneous RxNorm: 4679766 Inject 10 Unit(s) Subcutaneous QHS every night at bedtime with nighttime snack 10/08/19 22 022 Inactive Shingrix (PF) 50 mcg/0.5 mL intramuscular suspension, kit RxNorm: 6604066 ADMINISTER 2-DOSE SERIES PER CDC GUIDELINES 10/08/19 22 Active Shingrix (PF) 50 mcg/0.5 mL intramuscular suspension, kit RxNorm: 5373765 ADMINISTER 2-DOSE SERIES PER CDC GUIDELINES 10/08/19 22 022 Inactive Novolog Flexpen U-100 Insulin aspart 100 unit/mL (3 mL) subcutaneous RxNorm: 6486843 Inject 36 Unit(s) Subcutaneous TID in addition to sliding scale 10/08/19 22 Inactive Novofine Autocover 30 gauge x 1/3 needle RxNorm: Use 1 Miscellaneous UD as directed Use 1 needle as directed to administer insulin 5 times a day Dx:E11.42. 10/03/19 22 Inactive ok to substitute with any covered alternative pen needle benzoyl peroxide 10 % topical cleanser RxNorm: 654150 Apply 1 Application Topical QD apply to face, wash rinse and dry once daily (may change to QOD if drying) 08/19/19 22 022 Inactive (%covered by insurance) #60ml refill 11 dx: acne benzoyl peroxide 10 % topical cleanser RxNorm: 559428 Apply 1 Application Topical QD apply to face, wash rinse and dry once daily (may change to QOD if drying) 08/19/19 22 022 Inactive (%covered by insurance) #60ml refill 11 dx: acne benzoyl peroxide 10 % topical cleanser RxNorm: 636518 Apply 1 Application Topical QD apply to face, wash rinse and dry once daily (may change to QOD if drying) 08/19/19 22 022 Inactive (%covered by insurance) #60ml refill 11 dx: acne Lyrica 50 mg capsule RxNorm: 278394 Take 1 Capsule(s) Oral QAM every morning Take 1 capsule by mouth once daily 08/19/19 22 022 Inactive benzoyl peroxide 10 % topical cleanser RxNorm: 155093 Apply 1 Application Topical QD apply to face, wash rinse and dry once daily (may change to QOD if drying) 08/19/19 22 022 Inactive (%covered by insurance) #60ml refill 11 dx: acne Lyrica 100 mg capsule RxNorm: 472349 Take 1 Capsule(s) Oral QHS every night at bedtime Take 1 capsule by mouth once daily at bedtime 08/19/19 22 022 Inactive Lyrica 100 mg capsule RxNorm: 036347 Take 1 Capsule(s) Oral QHS every night at bedtime Take 1 capsule by mouth once daily at bedtime 08/16/19 22 022 Inactive Lyrica 50 mg capsule RxNorm: 891059 Take 1 Capsule(s) Oral QAM every morning Take 1 capsule by mouth once daily 08/16/19 22 022 Inactive Levemir FlexTouch U-100 Insulin 100 unit/mL (3 mL) subcutaneous pen RxNorm: 551586 Inject 86 Unit(s) Subcutaneous BID 08/05/19 22 022 Inactive d/c 83units BID Lyrica 100 mg capsule RxNorm: 543951 Take 1 Capsule(s) Oral QHS every night at bedtime Take 1 capsule by mouth once daily at bedtime 07/14/19 22 022 Inactive Lyrica 50 mg capsule RxNorm: 850103 Take 1 Capsule(s) Oral QAM every morning Take 1 capsule by mouth once daily 07/14/19 22 022 Inactive Levemir FlexTouch U-100 Insulin 100 unit/mL (3 mL) subcutaneous pen RxNorm: 502076 Inject 83 Unit(s) Subcutaneous BID 07/08/19 22 [...] test strip hydralazine 50 mg tablet RxNorm: 780673 Take 1 Tablet(s) Oral QID 05/05/20 21 Inactive venlafaxine ER 225 mg tablet,extended release 24 hr RxNorm: 406474 Take 1 Tablet(s) Oral QD 05/05/20 Inactive venlafaxine ER 225 mg tablet,extended release 24 hr RxNorm: 166715 Take 1 Tablet(s) Oral QD 05/05/20 022 Inactive isosorbide mononitrate ER 30 mg tablet,extended release 24 hr RxNorm: 833406 Take 1 Tablet(s) Oral QD 05/05/20 024 Inactive hydralazine 50 mg tablet RxNorm: 689127 Take 1 Tablet(s) Oral QID 05/05/20 21 Inactive aspirin 81 mg tablet,delayed release RxNorm: 280298 Take 1 Tablet(s) Oral QD 03/31/20 022 Inactive Vitamin D2 1,250 mcg (50,000 unit) capsule RxNorm: 6286654 Take 1 Capsule(s) Oral QW once a week x 12 weeks 03/31/20 022 Inactive Vitamin D2 1,250 mcg (50,000 unit) capsule RxNorm: 7900114 Take 1 Capsule(s) Oral QW once a week 03/31/20 021 Inactive Zetia 10 mg tablet RxNorm: 882336 Take 1 Tablet(s) Oral QD 03/31/20 024 Inactive Zetia 10 mg tablet RxNorm: 052003 Take 1 Tablet(s) Oral QD 03/31/20 021 Inactive hydralazine 25 mg tablet RxNorm: 582403 Take 1 Tablet(s) Oral QID 03/31/20 021 Inactive hydralazine 25 mg tablet RxNorm: 749472 Take 1 Tablet(s) Oral QID 03/31/20 021 Inactive hydralazine 10 mg tablet RxNorm: 741865 Take 1 Tablet(s) Oral QID 03/03/20 021 Inactive cephalexin 500 mg tablet RxNorm: 220930 Take 1 Tablet(s) Oral QID 02/27/20 021 Inactive cephalexin 500 mg tablet RxNorm: 438176 Take 1 Tablet(s) Oral QID 02/27/20 021 Inactive lisinopril 40 mg tablet RxNorm: 195896 Take 1 Tablet(s) Oral QD 02/11/20 023 Inactive Eliquis 5 mg tablet RxNorm: 3043657 Take 1 Tablet(s) Oral BID 01/05/20 022 Inactive Eliquis 5 mg tablet RxNorm: 8523996 Take 2 Tablet(s) Oral QD 01/01/20 21 021 Inactive Lyrica 50 mg capsule RxNorm: 241320 Take 1 Capsule(s) Oral QAM every morning 12/24/19 021 Inactive Lyrica 100 mg capsule RxNorm: 939369 Take 1 Capsule(s) Oral QHS every night at bedtime 12/24/19 021 Inactive clotrimazole 1 % topical cream RxNorm: 229701 Apply to right foot and toes Topical BID 12/04/19 21 023 Inactive metoprolol succinate ER 200 mg tablet,extended release 24 hr RxNorm: 410298 Take 1 Tablet(s) Oral QD 12/04/19 21 023 Inactive ciprofloxacin 500 mg tablet RxNorm: 532903 Take 1 Tablet(s) Oral QD 11/30/19 21 021 Inactive DX ofloxacin otic drops Accu-Chek Guide test strips RxNorm: USE 1 TO CHECK GLUCOSE 4 TIMES DAILY AND NEEDED 11/15/19 21 023 Inactive Blood Glucose Test strips RxNorm: Use 1 Test Strip QID at PRN 11/05/19 21 023 Inactive E11.42 lisinopril 30 mg tablet RxNorm: 687718 Take 1 Tablet(s) Oral QD 10/30/19 021 Inactive lisinopril 20 mg tablet RxNorm: 132485 Take 1 Tablet(s) Oral QD 10/23/19 21 021 Inactive lisinopril 20 mg tablet RxNorm: 923270 Take 1 Tablet(s) Oral QD 10/23/19 21 021 Inactive lisinopril 10 mg tablet RxNorm: 909811 Take 1 Tablet(s) Oral QD 10/02/19 21 021 Inactive icosapent ethyl 1 gram capsule RxNorm: 8022999 Take 2 Capsule(s) (2 gm) Oral BID with meals 09/12/19 024 Inactive Okay to dispense one 2gm tab if you have that available. icosapent ethyl 1 gram capsule RxNorm: 5432949 Take 2 Capsule(s) Oral BID 09/12/19 021 Inactive Okay to dispense one 2gm tab if you have that available. amlodipine 10 mg tablet RxNorm: 109195 Take 1 Tablet(s) Oral QD 09/04/19 022 Inactive aspirin 81 mg tablet,delayed release RxNorm: 175764 Take 1 Tablet(s) Oral QD 09/04/19 21 021 Inactive Levemir FlexTouch U-100 Insulin 100 unit/mL (3 mL) subcutaneous pen RxNorm: 461431 Inject 150 Unit(s) Subcutaneous BID 09/04/19 21 022 Inactive venlafaxine ER 150 mg tablet,extended release 24 hr RxNorm: 630559 Take 1 Tablet(s) Oral QD 09/04/19 21 021 Inactive clotrimazole-betame thasone 1 %-0.05 % topical cream RxNorm: 052338 Apply to rash on red area on left abdomen/chest Topical BID 03/26 Inactive amlodipine 5 mg tablet RxNorm: 049278 Take 1 Tablet(s) Oral QD 07/31/19 Inactive cephalexin 500 mg tablet RxNorm: 706457 Take 1 Tablet(s) Oral BID BID - Twice Daily 07/31/19 21 021 Inactive Start 08/01/20 pantoprazole 40 mg tablet,delayed release RxNorm: 543592 Take 1 Tablet(s) Oral QAM every morning 07/08/19 022 Inactive senna 8.6 mg tablet RxNorm: 053828 Take 1 Tablet(s) Oral QD 07/08/19 Inactive carbamazepine 200 mg tablet RxNorm: 619128 Take 1 Tablet(s) Oral BID 07/08/19 Inactive clopidogrel 75 mg tablet RxNorm: 767812 Take 1 Tablet(s) Oral QD 07/08/19 021 Inactive Blood Glucose Test strips RxNorm: Use 1 Test Strip QID at PRN 07/08/19 Inactive E11.42 Novolog Flexpen U-100 Insulin aspart 100 unit/mL (3 mL) subcutaneous RxNorm: 0055826 Administer per sliding scale Milliliter(s) Subcutaneous TID 151-200: 10 u; 201-250: 20 u; 251-300: 30 u; 301-350: 40 u; 351-400: 50 u. 07/08/19 Inactive lisinopril 5 mg tablet RxNorm: 542899 Take 1 Tablet(s) Oral QD 07/08/19 021 Inactive Novolog Flexpen U-100 Insulin aspart 100 unit/mL (3 mL) subcutaneous RxNorm: 7993577 Inject 85 Unit(s) Subcutaneous TID 07/08/19 022 Inactive pravastatin 80 mg tablet RxNorm: 177424 Take 1 Tablet(s) Oral QHS every night at bedtime 07/08/19 023 Inactive clotrimazole 1 % topical cream RxNorm: 688581 Apply to bilateral groin areas Topical BID 07/08/19 21 022 Inactive metoprolol succinate ER 200 mg tablet,extended release 24 hr RxNorm: 036108 Take 1 Tablet(s) Oral QD 07/08/19 21 021 Inactive Vitamin D3 25 mcg (1,000 unit) tablet RxNorm: 274980 Take 1 Tablet(s) Oral QD 07/08/19 21 021 Inactive isosorbide dinitrate 30 mg tablet RxNorm: 487563 Take 1 Tablet(s) Oral QD 07/08/19 021 Inactive Levemir FlexTouch U-100 Insulin 100 unit/mL (3 mL) subcutaneous pen RxNorm: 788117 Inject 140 Unit(s) Subcutaneous BID 07/08/19 21 021 Inactive torsemide 20 mg tablet RxNorm: 459375 Take 1 Tablet(s) Oral QD 07/08/19 21 023 Inactive venlafaxine 75 mg tablet RxNorm: 261090 Take 1 Tablet(s) Oral QD 07/08/19 021 Inactive acetaminophen 500 mg tablet RxNorm: 199095 Take 1 Tablet(s) Oral TID as needed for headache 06/18/19 21 021 Inactive acetaminophen 500 mg tablet RxNorm: 310697 Take 1 Tablet(s) Oral TID as needed for headache 06/18/19 021 Inactive Lyrica 100 mg capsule RxNorm: 258871 Take 1 Capsule(s) Oral QHS every night at bedtime 06/11/19 021 Inactive Lyrica 50 mg capsule RxNorm: 320525 Take 1 Capsule(s) Oral QAM every morning 06/10/19 21 021 Inactive hydrocortisone 2.5 % topical cream RxNorm: 971291 Apply to bilateral groin creases Topical BID 05/15/20 20 021 Inactive clotrimazole 1 % topical cream RxNorm: 358421 Apply to bilateral groin areas Topical BID 05/15/20 20 021 Inactive Lyrica 50 mg capsule RxNorm: 040450 Take 1 Capsule(s) Oral QAM every morning 05/14/20 20 020 Inactive Lyrica 100 mg capsule RxNorm: 285920 Take 1 Capsule(s) Oral QHS every night [...] Inactive Nystop 100,000 unit/gram topical powder RxNorm: 045250 Apply to abd folds, under breasts and L side of groin Topical BID x 14 days, then BID PRN 04/08/20 20 Inactive dx: yeast dermatitis Lyrica 100 mg capsule RxNorm: 789749 Take 1 Capsule(s) Oral QHS every night at bedtime 03/13/20 20 Inactive Lyrica 50 mg capsule RxNorm: 096523 Take 1 Capsule(s) Oral QAM every morning 03/13/20 20 Inactive ketoconazole 2 % shampoo RxNorm: 447804 Apply Topical two times a week with showers 03/11/20 20 Inactive cholecalciferol (vitamin D3) 50 mcg (2,000 unit) tablet RxNorm: 922878 Take 1 Tablet(s) Oral QD 03/11/20 20 Inactive Zetia 10 mg tablet RxNorm: 719696 Take 1 Tablet(s) Oral QD 03/07/20 20 021 Inactive Zetia 10 mg tablet RxNorm: 633926 Take 1 Tablet(s) Oral QD 03/07/20 20 020 Inactive Lyrica 50 mg capsule RxNorm: 583268 Take 1 Capsule(s) Oral QAM every morning 02/15/20 20 Inactive Lyrica 100 mg capsule RxNorm: 117357 Take 1 Capsule(s) Oral QHS every night at bedtime 02/15/20 Inactive Lyrica 100 mg capsule RxNorm: 949876 Take 1 Capsule(s) Oral QHS every night at bedtime 02/15/20 Inactive Lyrica 50 mg capsule RxNorm: 205401 Take 1 Capsule(s) Oral QAM every morning 02/15/20 Inactive metoprolol succinate ER 200 mg tablet,extended release 24 hr RxNorm: 893643 Take 1 Tablet(s) Oral QD 08/11 Activeloperamide 2 mg capsuleRxNorm: 690940Iriw 1 Capsule(s) Oral QID as needed 06/12/2021ctivehydralazine 50 mg tabletRxNorm: 343299Xmfy 1 Tablet(s) Oral QID 08/11/2022ctivevenlafaxine ER 75 mg capsule,extended release 24 hrRxNorm: 337296Bmlr 3 Capsule(s) Oral QD/Inactivepolyethylene glycol 3350 17 gram/dose oral powderRxNorm: 960524Ucor 17=1 capful Gram(s) Oral BID as needed mix with 4-8oz of /Inactiveicosapent ethyl 1 gram capsuleRxNorm: 4346360Bgqu 2 Capsule(s) (2 gm) Oral BID with meals /InactiveOkay to dispense one 2gm tab if you have that available.Levemir FlexTouch U-100 Insulin 100 unit/mL (3 mL) subcutaneous pen RxNorm: 869350Vokwbg 80 Unit(s) Subcutaneous BID/Inactive Novolog Flexpen U-100 Insulin aspart 100 unit/mL (3 mL) subcutaneousRxNorm: 6550253Eumvml 30 Unit(s) Subcutaneous TID with meals/Inactive Medication Administered No Medication Administered data Vital Signs Date Vital 12/14/2023 Blood Pressure 1: 136/76 Code: 8480-6 Heart Rate 1: 69 bpm Code: 8867-4 Respiratory Rate: 16 bpm Temperature: 36.7 (C) / 98.0 (F) Reason For Visit No Reason For Visit data Encounters Encounter Performer Location Location Address Codes Cristiano e ([id number]) Home or Residence Vi sit Est Pt - Moderate Level, 40 mins Diagnosis: Constipation by delayed colonic transit[ICD10: K59.01] Diagnosis: Hx of deep venous thrombosis[ICD10: Z86.718] Diagnosis: Hypercoagulable state[ICD10: D68.59] Diagnosis: Hypertensive heart disease without heart failure[ICD10: I11.9] Diagnosis: Stage 2 chronic 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[ICD10: E11.22] Diagnosis: Type 2 diabetes mellitus with diabetic polyneuropathy, with long-term current use of insulin[ICD10: E11.42] Diagnosis: Vitamin D deficiency[ICD10: E55.9][place] [id number] [place] [id number]-[id number]: [id number] Plan of Care Planned Activity Notes Codes Status Date Appointment: Sandra Clark WPtel: [address] [place], [place] [phone] [facility] Psych Follow Up12/09/2022ppointment: Tapan Shirley WPtel: [address] [phone] [facility]10/26/2022Referral: [facility]el[facility] [address] [facility] [address] [id number] USReferralRecords Dxzuhekd99/08/2023ppointment: Tapan Shirley WPtel: [address] USF/U008/11/2022ppointment: Tapan Shirley WPtel: [address] [phone] USF/U007/14/2022ppointment: Tapan Shirley WPtel: [address] [facility] [address] [id number] USF/2Referral: [facility] WPtel: [phone] [facility] [address] [id number]/12/2022Referral: General CardiologyReferralCompleted 1Referral: General PsychologistReferralClosedReferral: General PsychiatristReferralPatient/Family [...] Sister Jyotsna involved in his care cell# [phone] Guardian: Giulia (tapan met in person 09/01/21), [...] Martines note from 11.08.2023 at [facility] (follow up 6 months) 12/14/2023 Hypercoagulable state Monitor for signs and symptoms of thrombus formation. *No S&S present today. Continue Aspirin and Eliquis prescriptions.?? Constipation by delayed colonic transit Continue miralax and senna daily along with PRN suppositories. Denies recent concerns with bowel movements. Daily BMs reported. Monitor for worsening constipation or loose stools and adjust treatment plan accordingly. Staff to notify [facility] if they see signs of an??ileus or bowel obstruction. Vitamin D deficiency 10.15.2023: serum vitamin D (32) Continue supplementation as ordered.?? Encouragement to spend more time outside as he lives in the basement and does not spend much time outdoors.?? Hx of deep venous thrombosis DVT of left leg in 2020. Has remained on anticoagulation due to comorbidities increasing his risk for further DVT including sedentary lifestyle, limited mobility, DM2, obesity, hyperlipidemia, and hypertension.?? Does wear bilateral knee high compression socks daily.?? Currently taking Aspirin 81 mg QD and Eliquis 5 mg BID. *Continue regimen.?? Upon assessment of lower extremities today: no redness, warmth, or open skin areas. Continues to have chronic marshall discoloration to lower extremities, including hemosideran staining.?? Type 2 diabetes mellitus with diabetic polyneuropathy, with long-term current use of insulin [employer] manages Leonid's diabetes. Last visit lengthy discussion had with Leonid and staff about making a follow up appointment [facility]. Phone number provided to staff on [place] to assist withthis.?? Currently taking: Basaglar 30 units BID. Humulin 100 units TID. Ozempic 1 mg weekly.?? Along with: Lyrica 100 mg Am and 150 mg PM.?? Hypertension and hyperlipidemia treatment in place.?? Leonid unaware of his blood glucose readings during the day. Encouragement has been provided on physical activity as tolerated, specifically after meals to helpwith blood glucose regulation. Brendon prepares and serves meals; they do not follow a diabetic diet.?? Important to follow up with endocrinology regularly.?? Thankfully he had a follow up with his imaging tech on 11.08.2023 - Leonid shares they discontinued his Ozempic and increased his Insulin by 45 units although he was unable to remember which insulin and at which time during the day he takes the increased dose. I will request records from the visit to review the specialist note and recommendations. He has a follow up in 6 months with endocrinology. Continue to follow up with specialty team who manages his diabetes and insulin prescriptions.?? Stage 2 chronic 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 CKD stage 2: 11.03.2023 creatinine 1.0 and eGFR 84.?? Currently taking a high amount of insulin daily.?? Does have an imaging tech that he should be following with regularly. This has been highly encouraged by PCP to both Peter and staff to arrange follow up visit KATALINA.?? Continue to monitor kidney lab work regularly.?? Treatment for comorbidities in place: hypertension, hyperlipidemia, diabetes.?? Hypertensive heart disease without heart failure Multiple anti-hypertensives. Amlodipine 10 mg QD. Chlorthalidone 25 mg QD. Hydralazine 50 mg QID. Isosorbide mononitriate ER 60 mg QD. Metoprolol ER 200 mg QD. Potassium chloride ER 20??mEq QD increased to 40 mEq BID. Torsemide 20 mg BID decreased to 20 mg QD.?? Aspirin 81 mg QD.?? Also treatment for diabetes and hyperlipidemia on board.?? Follows with Horticulture Teacher with [facility]. *Unsure of last follow up visit.?? Lab work from 10.15.2023 leading to increase in potassium supplementation and decrease in diuretic due to serum potassium of 2.6 LOW. Unable to have patient evaluated in the ER due to recommendation not accepted by patient per staff. 11.01.2023 lab work reviewed with serum potassium of 3.7. Patient went to the ER 11.03.2023 lab work was reviewed in discharge summary and serum potassium was 3.9.?? Blood pressure today: 136/76 Edema today: at baseline, wearing compression socks with lower extremities elevated in recliner. Continue new regimen.??.12/14/2023
--- OUTSIDE RECORDS SUMMARY | 2023-12-27 06:09 | XMS_ITS | CCD ---
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 MACHINE ADJUSTER-C, [place] Chronic Care Management U navailable Summary Purpose DataExchange Insurance Providers Payer name Policy type / Coverage type Covered libertarian ID Effective Begin Date Effective End Date [place] [id number] Unknown Unknown Medicaid ID Medicare Part B [id number] Unknown Unknown Family history Sister Brittany Suggs [...] Long-Term 09/03/[address]: 1959975 Non-Smoker / No History of Smoking 09/02/[address]: 452639389 No Alcohol Consum ption 09/02/2020 Allergies, Adverse Reactions, Alerts Substance Reaction Codes Entered Date Inactivated Date Status * NO KNOWN FOOD ALLERGIES Htfvpyg6007/13/2023No Inactive DateActiveLISINOPRILRxNorm: 7155086No Inactive DateActiveMetformin USnWbwsvgz42/28/2020No Inactive DateActive* NO KNOWN ENVIRONMENTAL [id number]/27/2024No Inactive DateActive Problems Condition Codes Effective Dates Condition St atus Constipation by delayed colonic transit ICD-10: K59.01 ICD-9: 564.010/ctiveHx of deep venous thrombosisICD-10: Z86.718 ICD-9: V12.5107ctiveHypercoagulable stateICD-10: D68.59 ICD-9: 289.8107/ctiveHypertensive heart disease without heart failure ICD-10: I11.9 ICD-9: 402.9007ctiveStage 2 chronic 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ICD-10: E11.22 ICD-9: 250.4007ctiveType 2 diabetes mellitus with diabetic polyneuropathy, with long-term current use of insulinICD-10: E11.42 ICD-9: 250.6007/ctiveVitamin D deficiencyICD-10: E55.9 ICD-9: 268.907ctiveHypokalemiaICD-10: E87.6 ICD-9: 276.806ctiveLower extremity edemaICD-10: R60.0 ICD-9: 782.306ctiveMajor depression, recurrentICD-10: F33.9 ICD-9: 296.3006ctiveOnychogryposisICD-10: L60.2 ICD-9: 703.8011/09/2023ctivePVD (peripheral vascular disease)ICD-10: I73.9 ICD-9: 443.9011/09/2023ctiveBMI 60.0-69.9, adultICD-10: Z68.44 ICD-9: V85.44010/12/2023ctiveCandidal intertrigoICD-10: B37.2 ICD-9: 112.305ctiveHistory of anemia due to CKDICD-10: N18.9 ICD-9: 585.9010/12/2023ctiveLearning disabilityICD-10: F81.9 ICD-9: 315.205ctiveParaparesis of both lower limbsICD-10: G82.20 ICD-9: 344.105ctiveReducible umbilical herniaICD-10: K42.9 ICD-9: 553.105ctiveSeizure disorderICD-10: G40.909 ICD-9: 345.90010/12/2023ctiveCallus of heelICD-10: L84 ICD-9: 66778esolvedGout due to renal impairmentICD-10: M10.30 ICD-9: 274.1005/esolvedHyperhidrosis of palmsICD-10: L74.512 ICD-9: 705.2105esolvedHyperlipidemia, unspecifiedICD-10: E78.5 ICD-9: 272.405/esolvedOther long-term (current) drug therapyICD-10: Z79.899 ICD-9: V58.6905esolvedPain of right heelICD-10: M79.671 ICD-9: 729.505/esolvedStage 2 chronic kidney diseaseICD-10: N18.2 ICD-9: 585.205esolvedTinea pedis of both feetICD-10: B35.3 ICD-9: 110.405esolvedAmputated toe of right footICD-10: S98.131A ICD-9: 895.004/4ActiveDiabetic neuropathy associated with type 2 diabetes mellitusICD-10: E11.40 ICD-9: 250.6004/4ActiveHyperlipidemia associated with type 2 diabetes mellitusICD-10: E11.69 ICD-9: 250.8004/ctiveRecurrent major depressive disorder, in partial remissionICD-10: F33.41 ICD-9: 296.35044ActiveCellulitisICD-10: L03.90 ICD-9: 682.904/esolvedDandruff in adultICD-10: L21.0 ICD-9: 690.1804/esolvedEncounter for other specified special examinationsICD-10: Z01.89 ICD-9: V72.8504/esolvedEncounter for screening for nutritional disorder ICD-10: Z13.21 ICD-9: V77.9904/esolvedImpacted cerumen, left earICD-10: H61.22 ICD-9: 380.404/esolvedShortness of breathICD-10: R06.02 ICD-9: 786.0504/23/2024ResolvedSkin tagICD-10: L91.8 ICD-9: 701.904/esolvedCoronary artery disease involving [place] coronary artery of [place] heart, angina presence unspecifiedICD-10: I25.10 ICD-9: 414.0102/ctiveInappropriate sexual behaviorICD-10: Z72.89 ICD-9: 312.8910/ctiveAnnual physical examICD-10: Z00.00 ICD-9: V70.009/ctivePre-op evaluationICD-10: Z01.818 ICD-9: V72.8403/ctiveSecondary hypertensionICD-10: I15.9 ICD-9: 405.9903ctiveDepressionICD-10: F32.9 ICD-9: 89213/esolvedDVT (deep venous thrombosis)ICD-10: I82.409 ICD-9: 453.40092ResolvedEncounter for [...] to other viral communicable diseasesICD-10: Z20.828 ICD-9: V01.796088MbtwyfslKputaoliTevjepa24/28/2020ActiveDiabetes mellitus Type 8Nihlfbj80/28/2020ActiveAnemia in chronic kidney diseaseICD-10: D63.1 02/12/2020ResolvedHyperlipidemia, unspecifiedICD-10: E78.Resolved Medications Medication Codes Instructions Start Date Stop Date Status Fill Instructions cephalexin 500 mg capsule RxNorm: 597063 Take 1 Capsule(s) Oral QID 12/17/19 24 024 Inactive cephalexin 500 mg capsule RxNorm: 005904 Take 1 Capsule(s) Oral QID 12/17/19 24 024 Inactive acetaminophen 500 mg tablet RxNorm: 519194 (MAX APAP:4GM/24HR) Take 1 Tablet(s) Oral TID as needed for pain 12/10/19 24 Active torsemide 20 mg tablet RxNorm: 563722 Take 1 Tablet(s) Oral QD 10/26/19 24 024 Inactive potassium chloride ER 20 mEq tablet,extended release RxNorm: 19800522 Take 2 Tablet(s) Oral BID 10/26/19 24 025 Active torsemide 20 mg tablet RxNorm: 19821114 Take 1 Tablet(s) Oral QD 10/26/19 24 024 Inactive potassium chloride ER 20 mEq tablet,extended release RxNorm: 19800522 Take 2 Tablet(s) Oral BID 10/26/19 24 024 Inactive Artificial Tears (PF) 0.1 %-0.3 % drops in a dropperette RxNorm: 048055 Apply 1-2 Drop(s) Both eyes BID as needed 09/28/19 24 Active erythromycin 5 mg/gram (0.5 %) eye ointment RxNorm: 344157 Apply 1 Application Both eyes QHS every night at bedtime Instill ~1 cm ribbon into affected eye 09/28/19 24 024 Inactive Artificial Tears (PF) 0.1 %-0.3 % drops in a dropperette RxNorm: 043601 Apply 1-2 Drop(s) Both eyes BID as needed 09/28/19 24 Inactive erythromycin 5 mg/gram (0.5 %) eye ointment RxNorm: 504425 Apply 1 Application Both eyes QHS every night at bedtime Instill ~1 cm ribbon into affected eye 09/28/19 24 Inactive acetaminophen 500 mg tablet RxNorm: 857828 (MAX APAP:4GM/24HR) Take 1 Tablet(s) Oral TID as needed for pain 09/24/19 24 Inactive carvedilol 25 mg tablet RxNorm: 286146 Take 1 Tablet(s) Oral QD 09/08/19 24 No Stop Date Active pregabalin 100 mg capsule RxNorm: 005584 Take 1 Capsule(s) Oral QAM every morning 09/07/19 24 024 Active rosuvastatin 40 mg tablet RxNorm: 819909 Take 1 Tablet(s) Oral QPM every evening 07/13/19 24 No Stop Date Active ezetimibe 10 mg tablet RxNorm: 509993 Take 1 Tablet(s) Oral QD 07/13/19 24 No Stop Date Active bisacodyl 10 mg rectal suppository RxNorm: 634011 Insert 1 Suppository Rectal QD as needed 07/13/19 24 No Stop Date Active polyethylene glycol 3350 17 gram/dose oral powder RxNorm: 076821 Take 17 Gram(s) Oral BID as needed mix in 4-8ox water 07/13/19 24 No Stop Date Active ketoconazole 2 % shampoo RxNorm: 526273 Apply 1 Application Topical UD as directed 07/13/19 24 No Stop Date Active aripiprazole 15 mg tablet RxNorm: 971741 Take 1/2 Tablet(s) Oral QD 07/13/19 24 No Stop Date Active Ozempic 1 mg/dose (4 mg/3 mL) subcutaneous pen injector RxNorm: 3454282 Inject 1 Milligram(s) Subcutaneous QW once a week 07/13/19 24 No Stop Date Active Guaifenesin AC 10 mg-100 mg/5 mL oral liquid RxNorm: 882623 Take 10 Milliliter(s) Oral Q4H every four hours as needed 07/13/19 24 No Stop Date Active isosorbide mononitrate ER 60 mg tablet,extended release 24 hr RxNorm: 126901 Take 1 Tablet(s) Oral QD 07/13/19 24 No Stop Date Active ammonium lactate 12 % topical cream RxNorm: 315026 Apply 1 Application Topical BID 07/13/19 24 No Stop Date Active hydrocortisone 2.5 % topical cream RxNorm: 312050 Apply 1 Application Topical BID as needed 07/13/19 24 No Stop Date Active rosuvastatin 20 mg sprinkle capsule RxNorm: 0676573 Take 1 Capsule(s) Oral QD 07/13/19 24 No Stop Date Active Vascepa 1 gram capsule RxNorm: 6606698 Take 2 Capsule(s) Oral BID 07/13/19 24 No Stop Date Active venlafaxine ER 75 mg capsule,extended release 24 hr RxNorm: 160551 Take 3 Capsule(s) Oral QD 07/13/19 24 No Stop Date Active Basaglar KwikPen U-100 Insulin 100 unit/mL (3 mL) subcutaneous RxNorm: 4653306 Inject 30U SubQ twice daily 07/07/19 24 025 Active Please dispense one month supply. Basaglar KwikPen U-100 Insulin 100 unit/mL (3 mL) subcutaneous RxNorm: 8297657 Inject 30U SubQ twice daily 07/07/19 24 024 Inactive Please dispense one month supply. pregabalin 150 mg capsule RxNorm: 013989 Take 1 Capsule(s) Oral QHS every night at bedtime 07/05/19 24 024 Active pregabalin 150 mg capsule RxNorm: 400074 Take 1 Capsule(s) Oral QHS every night at bedtime 07/05/19 24 024 Inactive polyethylene glycol 3350 17 gram/dose oral powder RxNorm: 166420 Take 1 Packet Oral QD as needed (1 packet = 17g) mix with 4-8oz of liquid 06/15/19 24 024 Inactive bisacodyl 10 mg rectal suppository RxNorm: 246523 Insert one suppository per rectum once daily as needed for constipation 06/15/19 24 024 Inactive bisacodyl 10 mg rectal suppository RxNorm: 503261 Insert one suppository per rectum once daily as needed for constipation 06/15/19 24 024 Inactive pregabalin 100 mg capsule RxNorm: 281508 Take 1 Capsule(s) Oral QAM every morning 04/27/20 23 024 Inactive Levemir FlexPen 100 unit/mL (3 mL) solution subcutaneous insulin pen RxNorm: 326023 Inject 30 Unit(s) Subcutaneous BID 04/27/20 23 024 Inactive rosuvastatin 40 mg tablet RxNorm: 969435 Take 1 Tablet(s) Oral QPM every evening 04/16/20 024 Inactive D/C rosuvastatin 20mg venlafaxine ER 75 mg capsule,extended release 24 hr RxNorm: 577798 Take 3 Capsule(s) Oral QD 04/14/20 023 Inactive pregabalin 100 mg capsule RxNorm: 888215 Take 1 Capsule(s) Oral QAM every morning [...] meter clotrimazole 1 % topical cream RxNorm: 941456 Take apply topically to abdominal folds twice daily for 14 days 03/12/20 024 Inactive Ozempic 1 mg/dose (4 mg/3 mL) subcutaneous pen injector RxNorm: 2616118 Inject 1 Milligram(s) Subcutaneous QW once a week 03/11/20 23 023 Inactive rosuvastatin 20 mg tablet RxNorm: 006911 Take 1 Tablet(s) Oral QD 02/26/20 23 023 Inactive d/c pravastatin 80mg Ozempic 1 mg/dose (4 mg/3 mL) subcutaneous pen injector RxNorm: 1493521 Inject 1 Milligram(s) Subcutaneous QW once a week 02/20/20 23 023 Inactive pregabalin 150 mg capsule RxNorm: 525596 Take 1 Capsule(s) Oral HS at bed time 02/19/20 023 Inactive pregabalin 100 mg capsule RxNorm: 048296 Take 1 Capsule(s) Oral QAM every morning 02/18/20 023 Inactive venlafaxine ER 75 mg capsule,extended release 24 hr RxNorm: 184447 Take 3 Capsule(s) Oral QD 02/04/20 23 023 Inactive FreeStyle Chema 2 Sensor kit RxNorm: use as directed 02/04/20 23 023 Inactive FreeStyle Chema 2 Sensor kit RxNorm: use as directed 02/04/20 23 024 Inactive fluconazole 150 mg tablet RxNorm: 567321 Take 1 Tablet(s) Oral on day 3 and on day 6 02/03/20 024 Active chlorthalidone 25 mg tablet RxNorm: 923246 Take 1 Tablet(s) Oral QAM every morning 02/03/20 23 No Stop Date Active venlafaxine ER 150 mg capsule,extended release 24 hr RxNorm: 968224 Take 1 Capsule(s) Oral QD 02/03/20 023 Inactive acetaminophen 500 mg tablet RxNorm: 634441 1 TABLET ORALLY 3 TIMES DAILY (MAX APAP:4GM/24HR) 12/15/19 23 023 Inactive clotrimazole 1 % topical cream RxNorm: 246258 apply 1g topically to top of feet and in between toes BID 12/09/19 23 023 Inactive potassium chloride ER 20 mEq tablet,extended release RxNorm: 498523 Take 1 Tablet(s) Oral BID 12/09/19 23 024 Inactive d/c 20mEq once daily (sent from hospital) nystatin 100,000 unit/gram topical powder RxNorm: 271276 APPLY TO AFFECTED AREAS TOPICALLY 2 TIMES DAILY 11/21/19 23 024 Inactive Nystop 100,000 unit/gram topical powder RxNorm: 053162 Apply to abd folds, under breasts and L side of groin Topical BID x 14 days, then BID PRN 11/20/19 23 023 Inactive dx: yeast dermatitis Bengay Ultra Strength 4 %-30 %-10 % topical cream RxNorm: 106508 Apply 1 Gram(s) Topical QID PRN to feet and legs for neuropathic pain 11/11/19 23 024 Inactive clotrimazole 1 % topical cream RxNorm: 800089 Apply 1/2 Gram(s) Topical BID Apply to affected areas of groin, periarea, and abdominal topically 2 times daily 11/10/19 23 023 Inactive hydrocortisone 2.5 % topical cream RxNorm: 690337 Apply 1/2 Gram(s) Topical BID as needed 11/10/19 024 Inactive Humulin R U-500 (Concentrated) Insulin 500 unit/mL subcutaneous soln RxNorm: 658887 Inject 100 Unit(s) Subcutaneous TID 10/07/19 024 Inactive Levemir FlexPen 100 unit/mL (3 mL) solution subcutaneous insulin pen RxNorm: 046622 Inject 30 Unit(s) Subcutaneous BID 10/07/19 023 Inactive Ozempic 0.25 mg or 0.5 mg (2 mg/3 mL) subcutaneous pen injector RxNorm: 0300937 Inject 1/2 Milligram(s) Subcutaneous QW once a week 10/07/19 024 Inactive aripiprazole 15 mg tablet RxNorm: 861986 1/2 TAB (7.5MG) ORALLY DAILY (DX:MAJOR DEPRESSIVE DISORDER) 09/23/19 023 Inactive Lancets,Thin 28 gauge RxNorm: Use 1 as directed QID 09/15/19 23 024 Inactive Accu-Chek Guide test strips RxNorm: Use 1 Test Strip QID 09/15/19 23 023 Inactive ok to substitute with any covered alternative test strip torsemide 20 mg tablet RxNorm: 251700 Take 1 Tablet(s) Oral BID 09/09/19 23 024 Inactive d/c once daily dosing carvedilol 25 mg tablet RxNorm: 471206 Take 1 Tablet(s) Oral QD 08/25/19 23 024 Inactive pregabalin 150 mg capsule RxNorm: 542209 1 Capsule(s) Oral HS at bed time 08/18/19 23 023 Inactive pregabalin 100 mg capsule RxNorm: 346307 1 Capsule(s) Oral QAM every morning 08/18/19 23 023 Inactive carvedilol 25 mg tablet RxNorm: 419343 1 Tablet(s) Oral QD 07/28/19 23 023 Inactive lisinopril 20 mg tablet RxNorm: 842078 Give 1 Tablet(s) Oral QD 07/28/19 23 023 Inactive Lyrica 150 mg capsule RxNorm: 940372 Take 1 Capsule(s) Oral QHS every night at bedtime 07/19/19 023 Inactive d/c 100mg dose Diflucan 150 mg tablet RxNorm: 904118 Take 1 Tablet(s) Oral QD repeat on day 3 and 6 07/19/19 23 023 Inactive pregabalin 100 mg capsule RxNorm: 434779 Take 1 Capsule(s) Oral QAM every morning 07/19/19 23 023 Inactive gatifloxacin 0.5 % eye drops RxNorm: 966746 Instill 1 Drop(s) as directed TID Instill 1 drop in to affected eye(s) starting 1 day prior to surgery and continue until gone (do not exceed 4 weeks). 07/13/19 23 023 Inactive carvedilol 25 mg tablet RxNorm: 290375 2 Tablet(s) Oral BID 07/13/19 23 023 Inactive Humulin R Regular U-100 Insulin 100 unit/mL injection solution RxNorm: 495396 85 Unit(s) Injection TID 07/13/19 23 023 Inactive ketorolac 0.5 % eye drops RxNorm: 380218 Instill 1 Drop(s) as directed QID Instill 1 drop into affected eye(s) 4 times daily starting 1 day prior to surgery and continue until gone (do not exceed 4 weeks). 07/13/19 23 023 Inactive Diflucan 150 mg tablet RxNorm: 491218 Take 1 Tablet(s) Oral QD repeat on day 3 and 6 06/30/19 23 023 Inactive Accu-Chek Guide test strips RxNorm: Use 1 Test Strip QID Use 1 test strip to monitor blood glucose 4 times daily and as needed. Dx:E11.42. 06/23/19 023 Inactive ok to substitute with any covered alternative test strip dextromethorphan-gu aifenesin 10 mg-100 mg/5 mL oral liquid RxNorm: 253776 Take 10 Milliliter(s) Oral every 4 hours as needed for cough 06/19/19 023 Inactive dextromethorphan-gu aifenesin 10 mg-100 mg/5 mL oral liquid RxNorm: 139910 Take 10 Milliliter(s) Oral every 4 hours as needed for cough 06/19/19 023 Inactive Lyrica 150 mg capsule RxNorm: 864172 Take 1 Capsule(s) Oral QHS every night at bedtime 06/18/19 023 Inactive d/c 100mg dose aripiprazole 15 mg tablet RxNorm: 963369 1/2 TAB (7.5MG) ORALLY DAILY (DX:MAJOR DEPRESSIVE DISORDER) 06/05/19 23 023 Inactive pregabalin 100 mg capsule RxNorm: 148590 1 Capsule(s) Oral QAM every morning 06/02/19 23 023 Inactive Banophen 50 mg capsule RxNorm: 7665763 Take 1 Capsule(s) Oral Q6H every 6 hours as needed 05/19/19 23 No Stop Date Active Novolog Flexpen U-100 Insulin aspart 100 unit/mL (3 mL) subcutaneous RxNorm: 1448994 Inject 10 Unit(s) Subcutaneous QHS every night at bedtime with nighttime snack 04/08/20 22 022 Inactive Novolog Flexpen U-100 Insulin aspart 100 unit/mL (3 mL) subcutaneous RxNorm: 2309237 Inject 42 Unit(s) Subcutaneous TID in addition to sliding scale 04/08/20 22 022 Inactive d/c 36u albuterol sulfate HFA 90 mcg/actuation aerosol inhaler RxNorm: 8034836 Take 2 Puff(s) Inhalation Q4H every four hours as needed as needed for SOB, cough, or wheezing 04/07/20 030 Active Banophen 50 mg capsule RxNorm: 3979478 Take 1 Capsule(s) Oral Q6H every 6 hours as needed 04/06/20 023 Inactive diphenhydramine 50 mg tablet RxNorm: 1650079 Take 1 Tablet(s) Oral Q6H every 6 hours as needed 04/06/20 022 Inactive diphenhydramine 50 mg tablet RxNorm: 3450098 1 Tablet(s) Oral Q6H every 6 hours as needed 04/06/20 022 Inactive Abilify 15 mg tablet RxNorm: 703095 1/2 Tablet(s) Oral QD 03/10/20 023 Inactive Shingrix (PF) 50 mcg/0.5 mL intramuscular suspension, kit RxNorm: 1368416 Administer 1/2 Milliliter(s) Intramuscular QD one time shingrix step 2 ( step 1 given 11/04/21) WITH needle - Nursing please administer upon arrival and once administered post a bridge message with date of administration, acupuncturist, expiration date, and lot# so we can update [facility] 02/18/20 22 022 Inactive dispense with needle Shingrix (PF) 50 mcg/0.5 mL intramuscular suspension, kit RxNorm: 1008691 Administer 1/2 Milliliter(s) Intramuscular QD one time shingrix step 2 ( step 1 given 11/04/21) WITH needle - Nursing please administer upon arrival and once administered post a bridge message with date of administration, acupuncturist, expiration date, and lot# so we can update [facility] 02/18/20 22 022 Inactive dispense with needle polyethylene glycol 3350 17 gram/dose oral powder RxNorm: 334949 Take 17=1 capful Gram(s) Oral QD mix with 4-8oz of liquid 01/08/20 22 023 Inactive take this in addition to BID prn order Lyrica 100 mg capsule RxNorm: 960133 Take 1 Capsule(s) Oral QAM every morning 01/08/20 22 022 Inactive d/c 50mg dose acetaminophen 500 mg tablet RxNorm: 687553 Take 1 Tablet(s) Oral TID 01/08/20 22 022 Inactive d/c PRN order Lyrica 150 mg capsule RxNorm: 417994 Take 1 Capsule(s) Oral QHS every night at bedtime 01/08/20 22 023 Inactive d/c 100mg dose Abilify 5 mg tablet RxNorm: 094782 Take 1 Tablet(s) Oral QD take 1 tab po QD #30 refill 5 dx: MDD 12/12/19 22 022 Inactive Abilify 5 mg tablet RxNorm: 493869 Take 1 Tablet(s) Oral QD take 1 tab po QD #30 refill 5 dx: MDD 12/12/19 22 022 Inactive Novolog Flexpen U-100 Insulin aspart 100 unit/mL (3 mL) subcutaneous RxNorm: 3618680 Inject 42 Unit(s) Subcutaneous TID in addition to sliding scale 12/10/19 22 022 Inactive d/c 36u chlorthalidone 25 mg tablet RxNorm: 164484 Take 1 Tablet(s) Oral QAM every morning 12/10/19 22 023 Inactive pregabalin 50 mg capsule RxNorm: 893903 Take 1 Capsule(s) Oral QAM every morning 11/12/19 022 Inactive tetanus-diphtheria toxoids-Td 2 Lf unit-2 Lf unit/0.5 mL IM suspension RxNorm: 139 Take 0.5 Miscellaneous Intramuscular 11/12/19 22 022 Inactive need tdap - nursing to administer upon arrival pregabalin 50 mg capsule RxNorm: 967199 Take 1 Capsule(s) Oral QAM every morning 10/16/19 22 022 Inactive pregabalin 50 mg capsule RxNorm: 422354 Take 1 Capsule(s) Oral QAM every morning 10/16/19 22 022 Inactive pregabalin 50 mg capsule RxNorm: 224647 1 Capsule(s) Oral QAM every morning 10/15/19 22 05/31/2 022 Inactive Shingrix (PF) 50 mcg/0.5 mL intramuscular suspension, kit RxNorm: 9626067 Administer 1/2 Milliliter(s) Intramuscular one time Nursing please administer upon arrival and once administered post a bridge message with date of administration, acupuncturist, expiration date, and lot# so we can update [facility]. 10/09/19 22 Inactive shingrix step 1 Shingrix (PF) 50 mcg/0.5 mL intramuscular suspension, kit RxNorm: 6611631 Administer 1/2 Milliliter(s) Intramuscular one time Nursing please administer upon arrival and once administered post a bridge message with date of administration, acupuncturist, expiration date, and lot# so we can update [facility]. 10/09/19 22 022 Inactive shingrix step 1 cholecalciferol (vitamin D3) 1,250 mcg (50,000 unit) capsule RxNorm: 176750 Take 1 Capsule(s) Oral QW once a [...] aspart 100 unit/mL (3 mL) subcutaneous RxNorm: 6564502 Inject 10 Unit(s) Subcutaneous QHS every night at bedtime with nighttime snack 10/08/19 22 Inactive Shingrix (PF) 50 mcg/0.5 mL intramuscular suspension, kit RxNorm: 8023624 ADMINISTER 2-DOSE SERIES PER CDC GUIDELINES 10/08/19 22 Active Shingrix (PF) 50 mcg/0.5 mL intramuscular suspension, kit RxNorm: 9776737 ADMINISTER 2-DOSE SERIES PER CDC GUIDELINES 10/08/19 22 022 Inactive Novolog Flexpen U-100 Insulin aspart 100 unit/mL (3 mL) subcutaneous RxNorm: 5125953 Inject 36 Unit(s) Subcutaneous TID in addition to sliding scale 10/08/19 22 Inactive Novofine Autocover 30 gauge x 1/3 needle RxNorm: Use 1 Miscellaneous UD as directed Use 1 needle as directed to administer insulin 5 times a day Dx:E11.42. 10/03/19 22 Inactive ok to substitute with any covered alternative pen needle benzoyl peroxide 10 % topical cleanser RxNorm: 144477 Apply 1 Application Topical QD apply to face, wash rinse and dry once daily (may change to QOD if drying) 08/19/19 022 Inactive (%covered by insurance) #60ml refill 11 dx: acne benzoyl peroxide 10 % topical cleanser RxNorm: 806425 Apply 1 Application Topical QD apply to face, wash rinse and dry once daily (may change to QOD if drying) 08/19/19 022 Inactive (%covered by insurance) #60ml refill 11 dx: acne benzoyl peroxide 10 % topical cleanser RxNorm: 108978 Apply 1 Application Topical QD apply to face, wash rinse and dry once daily (may change to QOD if drying) 08/19/19 022 Inactive (%covered by insurance) #60ml refill 11 dx: acne Lyrica 50 mg capsule RxNorm: 826771 Take 1 Capsule(s) Oral QAM every morning Take 1 capsule by mouth once daily 08/19/19 22 022 Inactive benzoyl peroxide 10 % topical cleanser RxNorm: 125868 Apply 1 Application Topical QD apply to face, wash rinse and dry once daily (may change to QOD if drying) 08/19/19 22 022 Inactive (%covered by insurance) #60ml refill 11 dx: acne Lyrica 100 mg capsule RxNorm: 217443 Take 1 Capsule(s) Oral QHS every night at bedtime Take 1 capsule by mouth once daily at bedtime 08/19/19 22 022 Inactive Lyrica 100 mg capsule RxNorm: 967020 Take 1 Capsule(s) Oral QHS every night at bedtime Take 1 capsule by mouth once daily at bedtime 08/16/19 22 022 Inactive Lyrica 50 mg capsule RxNorm: 241997 Take 1 Capsule(s) Oral QAM every morning Take 1 capsule by mouth once daily 08/16/19 22 022 Inactive Levemir FlexTouch U-100 Insulin 100 unit/mL (3 mL) subcutaneous pen RxNorm: 432401 Inject 86 Unit(s) Subcutaneous BID 08/05/19 22 022 Inactive d/c 83units BID Lyrica 100 mg capsule RxNorm: 111625 Take 1 Capsule(s) Oral QHS every night at bedtime Take 1 capsule by mouth once daily at bedtime 07/14/19 22 022 Inactive Lyrica 50 mg capsule RxNorm: 711344 Take 1 Capsule(s) Oral QAM every morning Take 1 capsule by mouth once daily 07/14/19 22 022 Inactive Levemir FlexTouch U-100 Insulin 100 unit/mL (3 mL) subcutaneous pen RxNorm: 320214 Inject 83 Unit(s) Subcutaneous BID 07/08/19 22 [...] test strip hydralazine 50 mg tablet RxNorm: 636681 Take 1 Tablet(s) Oral QID 05/05/20 21 022 Inactive venlafaxine ER 225 mg tablet,extended release 24 hr RxNorm: 567478 Take 1 Tablet(s) Oral QD 05/05/20 Inactive venlafaxine ER 225 mg tablet,extended release 24 hr RxNorm: 795014 Take 1 Tablet(s) Oral QD 05/05/20 022 Inactive isosorbide mononitrate ER 30 mg tablet,extended release 24 hr RxNorm: 415506 Take 1 Tablet(s) Oral QD 05/05/20 024 Inactive hydralazine 50 mg tablet RxNorm: 228345 Take 1 Tablet(s) Oral QID 05/05/20 Inactive aspirin 81 mg tablet,delayed release RxNorm: 672047 Take 1 Tablet(s) Oral QD 03/31/20 022 Inactive Vitamin D2 1,250 mcg (50,000 unit) capsule RxNorm: 6768493 Take 1 Capsule(s) Oral QW once a week x 12 weeks 03/31/20 022 Inactive Vitamin D2 1,250 mcg (50,000 unit) capsule RxNorm: 3674546 Take 1 Capsule(s) Oral QW once a week 03/31/20 021 Inactive Zetia 10 mg tablet RxNorm: 596476 Take 1 Tablet(s) Oral QD 03/31/20 21 024 Inactive Zetia 10 mg tablet RxNorm: 969497 Take 1 Tablet(s) Oral QD 03/31/20 021 Inactive hydralazine 25 mg tablet RxNorm: 598205 Take 1 Tablet(s) Oral QID 03/31/20 021 Inactive hydralazine 25 mg tablet RxNorm: 085369 Take 1 Tablet(s) Oral QID 03/31/20 021 Inactive hydralazine 10 mg tablet RxNorm: 967363 Take 1 Tablet(s) Oral QID 03/03/20 021 Inactive cephalexin 500 mg tablet RxNorm: 436778 Take 1 Tablet(s) Oral QID 02/27/20 021 Inactive cephalexin 500 mg tablet RxNorm: 160485 Take 1 Tablet(s) Oral QID 02/27/20 021 Inactive lisinopril 40 mg tablet RxNorm: 440960 Take 1 Tablet(s) Oral QD 02/11/20 023 Inactive Eliquis 5 mg tablet RxNorm: 5085445 Take 1 Tablet(s) Oral BID 01/05/20 022 Inactive Eliquis 5 mg tablet RxNorm: 5370487 Take 2 Tablet(s) Oral QD 01/01/20 021 Inactive Lyrica 50 mg capsule RxNorm: 591167 Take 1 Capsule(s) Oral QAM every morning 12/24/19 021 Inactive Lyrica 100 mg capsule RxNorm: 456339 Take 1 Capsule(s) Oral QHS every night at bedtime 12/24/19 21 021 Inactive clotrimazole 1 % topical cream RxNorm: 010297 Apply to right foot and toes Topical BID 12/04/19 21 023 Inactive metoprolol succinate ER 200 mg tablet,extended release 24 hr RxNorm: 280435 Take 1 Tablet(s) Oral QD 12/04/19 21 023 Inactive ciprofloxacin 500 mg tablet RxNorm: 221559 Take 1 Tablet(s) Oral QD 11/30/19 21 021 Inactive DX ofloxacin otic drops Accu-Chek Guide test strips RxNorm: USE 1 TO CHECK GLUCOSE 4 TIMES DAILY AND NEEDED 11/15/19 21 023 Inactive Blood Glucose Test strips RxNorm: Use 1 Test Strip QID at PRN 11/05/19 21 023 Inactive E11.42 lisinopril 30 mg tablet RxNorm: 514468 Take 1 Tablet(s) Oral QD 10/30/19 021 Inactive lisinopril 20 mg tablet RxNorm: 872455 Take 1 Tablet(s) Oral QD 10/23/19 21 021 Inactive lisinopril 20 mg tablet RxNorm: 112902 Take 1 Tablet(s) Oral QD 10/23/19 021 Inactive lisinopril 10 mg tablet RxNorm: 385536 Take 1 Tablet(s) Oral QD 10/02/19 021 Inactive icosapent ethyl 1 gram capsule RxNorm: 3364094 Take 2 Capsule(s) (2 gm) Oral BID with meals 09/12/19 21 024 Inactive Okay to dispense one 2gm tab if you have that available. icosapent ethyl 1 gram capsule RxNorm: 9722577 Take 2 Capsule(s) Oral BID 09/12/19 21 021 Inactive Okay to dispense one 2gm tab if you have that available. amlodipine 10 mg tablet RxNorm: 719122 Take 1 Tablet(s) Oral QD 09/04/19 022 Inactive aspirin 81 mg tablet,delayed release RxNorm: 936812 Take 1 Tablet(s) Oral QD 09/04/19 21 021 Inactive Levemir FlexTouch U-100 Insulin 100 unit/mL (3 mL) subcutaneous pen RxNorm: 051486 Inject 150 Unit(s) Subcutaneous BID 09/04/19 21 022 Inactive venlafaxine ER 150 mg tablet,extended release 24 hr RxNorm: 985220 Take 1 Tablet(s) Oral QD 09/04/19 21 021 Inactive clotrimazole-betame thasone 1 %-0.05 % topical cream RxNorm: 927341 Apply to rash on red area on left abdomen/chest Topical BID 08/10/19 21 021 Inactive amlodipine 5 mg tablet RxNorm: 655011 Take 1 Tablet(s) Oral QD 07/31/19 Inactive cephalexin 500 mg tablet RxNorm: 957446 Take 1 Tablet(s) Oral BID BID - Twice Daily 07/31/19 21 021 Inactive Start 08/01/20 pantoprazole 40 mg tablet,delayed release RxNorm: 941249 Take 1 Tablet(s) Oral QAM every morning 07/08/19 022 Inactive senna 8.6 mg tablet RxNorm: 538263 Take 1 Tablet(s) Oral QD 07/08/19 022 Inactive carbamazepine 200 mg tablet RxNorm: 080489 Take 1 Tablet(s) Oral BID 07/08/19 022 Inactive clopidogrel 75 mg tablet RxNorm: 311388 Take 1 Tablet(s) Oral QD 07/08/19 021 Inactive Blood Glucose Test strips RxNorm: Use 1 Test Strip QID at PRN 07/08/19 021 Inactive E11.42 Novolog Flexpen U-100 Insulin aspart 100 unit/mL (3 mL) subcutaneous RxNorm: 2372689 Administer per sliding scale Milliliter(s) Subcutaneous TID 151-200: 10 u; 201-250: 20 u; 251-300: 30 u; 301-350: 40 u; 351-400: 50 u. 07/08/19 022 Inactive lisinopril 5 mg tablet RxNorm: 047959 Take 1 Tablet(s) Oral QD 07/08/19 021 Inactive Novolog Flexpen U-100 Insulin aspart 100 unit/mL (3 mL) subcutaneous RxNorm: 1672731 Inject 85 Unit(s) Subcutaneous TID 07/08/19 022 Inactive pravastatin 80 mg tablet RxNorm: 661256 Take 1 Tablet(s) Oral QHS every night at bedtime 07/08/19 023 Inactive clotrimazole 1 % topical cream RxNorm: 020221 Apply to bilateral groin areas Topical BID 07/08/19 022 Inactive metoprolol succinate ER 200 mg tablet,extended release 24 hr RxNorm: 581556 Take 1 Tablet(s) Oral QD 07/08/19 021 Inactive Vitamin D3 25 mcg (1,000 unit) tablet RxNorm: 254716 Take 1 Tablet(s) Oral QD 07/08/19 021 Inactive isosorbide dinitrate 30 mg tablet RxNorm: 902604 Take 1 Tablet(s) Oral QD 07/08/19 021 Inactive Levemir FlexTouch U-100 Insulin 100 unit/mL (3 mL) subcutaneous pen RxNorm: 740027 Inject 140 Unit(s) Subcutaneous BID 07/08/19 021 Inactive torsemide 20 mg tablet RxNorm: 129163 Take 1 Tablet(s) Oral QD 07/08/19 023 Inactive venlafaxine 75 mg tablet RxNorm: 957321 Take 1 Tablet(s) Oral QD 07/08/19 021 Inactive acetaminophen 500 mg tablet RxNorm: 733877 Take 1 Tablet(s) Oral TID as needed for headache 06/18/19 21 021 Inactive acetaminophen 500 mg tablet RxNorm: 303677 Take 1 Tablet(s) Oral TID as needed for headache 06/18/19 021 Inactive Lyrica 100 mg capsule RxNorm: 959974 Take 1 Capsule(s) Oral QHS every night at bedtime 06/11/19 021 Inactive Lyrica 50 mg capsule RxNorm: 172897 Take 1 Capsule(s) Oral QAM every morning 06/10/19 021 Inactive hydrocortisone 2.5 % topical cream RxNorm: 261210 Apply to bilateral groin creases Topical BID 05/15/20 20 021 Inactive clotrimazole 1 % topical cream RxNorm: 547970 Apply to bilateral groin areas Topical BID 05/15/20 20 021 Inactive Lyrica 50 mg capsule RxNorm: 248253 Take 1 Capsule(s) Oral QAM every morning 05/14/20 20 020 Inactive Lyrica 100 mg capsule RxNorm: 461646 Take 1 Capsule(s) Oral QHS every night [...] Inactive Nystop 100,000 unit/gram topical powder RxNorm: 390247 Apply to abd folds, under breasts and L side of groin Topical BID x 14 days, then BID PRN 04/08/20 20 020 Inactive dx: yeast dermatitis Lyrica 100 mg capsule RxNorm: 430069 Take 1 Capsule(s) Oral QHS every night at bedtime 03/13/20 20 Inactive Lyrica 50 mg capsule RxNorm: 417843 Take 1 Capsule(s) Oral QAM every morning 03/13/20 20 Inactive ketoconazole 2 % shampoo RxNorm: 913272 Apply Topical two times a week with showers 03/11/20 20 024 Inactive cholecalciferol (vitamin D3) 50 mcg (2,000 unit) tablet RxNorm: 406302 Take 1 Tablet(s) Oral QD 03/11/20 20 021 Inactive Zetia 10 mg tablet RxNorm: 353094 Take 1 Tablet(s) Oral QD 03/07/20 20 021 Inactive Zetia 10 mg tablet RxNorm: 957981 Take 1 Tablet(s) Oral QD 03/07/20 20 020 Inactive Lyrica 50 mg capsule RxNorm: 391565 Take 1 Capsule(s) Oral QAM every morning 02/15/20 20 Inactive Lyrica 100 mg capsule RxNorm: 871232 Take 1 Capsule(s) Oral QHS every night at bedtime 02/15/20 20 Inactive Lyrica 100 mg capsule RxNorm: 818621 Take 1 Capsule(s) Oral QHS every night at bedtime 02/15/20 Inactive Lyrica 50 mg capsule RxNorm: 295835 Take 1 Capsule(s) Oral QAM every morning 02/15/20 20 Inactive metoprolol succinate ER 200 mg tablet,extended release 24 hr RxNorm: 608123 Take 1 Tablet(s) Oral QD 08/11 Activeloperamide 2 mg capsuleRxNorm: 334267Szpb 1 Capsule(s) Oral QID as needed 06/12/2021ctivehydralazine 50 mg tabletRxNorm: 037576Mfus 1 Tablet(s) Oral QID 08/11/2022ctivevenlafaxine ER 75 mg capsule,extended release 24 hrRxNorm: 370362Fwfy 3 Capsule(s) Oral QD/Inactivepolyethylene glycol 3350 17 gram/dose oral powderRxNorm: 747950Rsnu 17=1 capful Gram(s) Oral BID as needed mix with 4-8oz of eyapyi15/27//Inactiveicosapent ethyl 1 gram capsuleRxNorm: 8724042Hofg 2 Capsule(s) (2 gm) Oral BID with meals /InactiveOkay to dispense one 2gm tab if you have that available.Levemir FlexTouch U-100 Insulin 100 unit/mL (3 mL) subcutaneous pen RxNorm: 314903Bvdwub 80 Unit(s) Subcutaneous BID/Inactive Novolog Flexpen U-100 Insulin aspart 100 unit/mL (3 mL) subcutaneousRxNorm: 6096360Yjpiau 30 Unit(s) Subcutaneous TID with meals/Inactive Medication Administered No Medication Administered data Reason For Visit No Reason For Visit data Plan of Care Planned Activity Notes Codes Status Date Referral: [facility] WPtel: [phone], [address] [id number] USReferralRecords Gzudinrq03/08/2023Referral: [facility] WPtel: [address] [id number]/12/2022Referral: General CardiologyReferralCompleted 1Referral: General PsychologistReferralClosedReferral: General PsychiatristReferralPatient/Family [...] Sister Jyotsna involved in his care cell# [phone] Guardian: Don (tapan met in person 09/01/21), [...] note from 11.08.2023 at [facility] (follow up 6 months) 12/14/2023
--- OUTSIDE RECORDS SUMMARY | 2024-01-13 04:39 | XMS_ITS | CCD ---
Author Name Cecilio Durham feliberto Address [address] [facility] [address] [place] [address] Phone Organization [facility] Phone Care Team Providers Care Greige Goods Examiner Name Role Phone Harrison Durham Primary Care Provider Leona vailable Harrison Durham Chronic Care Management U navailable Summary Purpose DataExchange Insurance Providers Payer name Policy type / Coverage type Covered libertarian ID Effective Begin Date Effective End Date Medicare [place] Medicare Part B [id number] Unknown Unknown Medicaid [place] Medicare Part B [id number] Unknown Unknown Family history Sister Brittany Suggs [...] Unknown Long-Term 09/03/[address]: 1882537 Non-Smoker / No History of Smoking 09/02/[address]: 420605407 No Alcohol Consum ption 09/02/2020 Allergies, Adverse Reactions, Alerts Substance Reaction Codes Entered Date Inactivated Date Status * NO KNOWN FOOD ALLERGIES Bakdmpg9407/13/2023No Inactive DateActiveLISINOPRILRxNorm: 1378890No Inactive DateActiveMetformin HSzLwsetdc70/28/2020No Inactive DateActive* NO KNOWN ENVIRONMENTAL [id number]/27/2024No Inactive DateActive Problems Condition Codes Effective Dates Condition St atus Constipation by delayed colonic transit ICD-10: K59.01 ICD-9: 564.0107/ctiveHx of deep venous thrombosisICD-10: Z86.718 ICD-9: V12.5107ctiveHypercoagulable [...] G40.909 ICD-9: 345.9005/4ActiveCallus of heelICD-10: L84 ICD-9: 26017/esolvedGout due to renal impairmentICD-10: M10.30 ICD-9: 274.1005esolvedHyperhidrosis of palmsICD-10: L74.512 ICD-9: 705.2105esolvedHyperlipidemia, unspecifiedICD-10: E78.5 ICD-9: 272.405/esolvedOther jail (current) drug therapyICD-10: Z79.899 ICD-9: V58.6905esolvedPain of [...] tagICD-10: L91.8 ICD-9: 701.904/esolvedCoronary artery disease involving ho-chunk coronary artery of ho-chunk heart, angina presence unspecifiedICD-10: I25.10 ICD-9: 414.0102/4ActiveInappropriate sexual behaviorICD-10: Z72.89 ICD-9: 312.8910/ctiveAnnual physical examICD-10: Z00.00 ICD-9: V70.009/ctivePre-op evaluationICD-10: Z01.818 ICD-9: V72.8403/ctiveSecondary hypertensionICD-10: I15.9 ICD-9: 405.9903ctiveDepressionICD-10: F32.9 ICD-9: 67089/2ResolvedDVT (deep venous thrombosis)ICD-10: I82.409 ICD-9: 453.40092ResolvedEncounter for [...] to other viral communicable diseasesICD-10: Z20.828 ICD-9: V01.79021028AiqbbjoaBeakpuvjSntxzbz58/28/2020ActiveDiabetes mellitus Type 4Jwbottq50/28/2020ActiveAnemia in chronic kidney diseaseICD-10: D63.1 02/12/2020ResolvedHyperlipidemia, unspecifiedICD-10: E78.Resolved Medications Medication Codes Instructions Start Date Stop Date Status Fill Instructions cephalexin 500 mg capsule RxNorm: 628564 Take 1 Capsule(s) Oral QID 12/17/19 24 Inactive cephalexin 500 mg capsule RxNorm: 721901 Take 1 Capsule(s) Oral QID 12/17/19 24 Inactive acetaminophen 500 mg tablet RxNorm: 353253 (MAX APAP:4GM/24HR) Take 1 Tablet(s) Oral TID as needed for pain 12/10/19 24 Active torsemide 20 mg tablet RxNorm: 498841 Take 1 Tablet(s) Oral QD 10/26/19 24 Inactive potassium chloride ER 20 mEq tablet,extended release RxNorm: 295524 Take 2 Tablet(s) Oral BID 10/26/19 24 Active torsemide 20 mg tablet RxNorm: 865280 Take 1 Tablet(s) Oral QD 10/26/19 24 Inactive potassium chloride ER 20 mEq tablet,extended release RxNorm: 19800522 Take 2 Tablet(s) Oral BID 10/26/19 24 Inactive Artificial Tears (PF) 0.1 %-0.3 % drops in a dropperette RxNorm: 820841 Apply 1-2 Drop(s) Both eyes BID as needed 09/28/19 24 Active erythromycin 5 mg/gram (0.5 %) eye ointment RxNorm: 630740 Apply 1 Application Both eyes QHS every night at bedtime Instill ~1 cm ribbon into affected eye 09/28/19 24 Inactive Artificial Tears (PF) 0.1 %-0.3 % drops in a dropperette RxNorm: 239460 Apply 1-2 Drop(s) Both eyes BID as needed 09/28/19 24 Inactive erythromycin 5 mg/gram (0.5 %) eye ointment RxNorm: 778783 Apply 1 Application Both eyes QHS every night at bedtime Instill ~1 cm ribbon into affected eye 09/28/19 24 Inactive acetaminophen 500 mg tablet RxNorm: 284915 (MAX APAP:4GM/24HR) Take 1 Tablet(s) Oral TID as needed for pain 09/24/19 24 Inactive carvedilol 25 mg tablet RxNorm: 484442 Take 1 Tablet(s) Oral QD 09/08/19 24 No Stop Date Active pregabalin 100 mg capsule RxNorm: 749844 Take 1 Capsule(s) Oral QAM every morning 09/07/19 24 024 Inactive rosuvastatin 40 mg tablet RxNorm: 524342 Take 1 Tablet(s) Oral QPM every evening 07/13/19 24 No Stop Date Active ezetimibe 10 mg tablet RxNorm: 855627 Take 1 Tablet(s) Oral QD 07/13/19 24 No Stop Date Active bisacodyl 10 mg rectal suppository RxNorm: 774974 Insert 1 Suppository Rectal QD as needed 07/13/19 24 No Stop Date Active polyethylene glycol 3350 17 gram/dose oral powder RxNorm: 460348 Take 17 Gram(s) Oral BID as needed mix in 4-8ox water 07/13/19 24 No Stop Date Active ketoconazole 2 % shampoo RxNorm: 532964 Apply 1 Application Topical UD as directed 07/13/19 24 No Stop Date Active aripiprazole 15 mg tablet RxNorm: 278981 Take 1/2 Tablet(s) Oral QD 07/13/19 24 No Stop Date Active Ozempic 1 mg/dose (4 mg/3 mL) subcutaneous pen injector RxNorm: 1830476 Inject 1 Milligram(s) Subcutaneous QW once a week 07/13/19 24 No Stop Date Active Guaifenesin AC 10 mg-100 mg/5 mL oral liquid RxNorm: 922534 Take 10 Milliliter(s) Oral Q4H every four hours as needed 07/13/19 24 No Stop Date Active isosorbide mononitrate ER 60 mg tablet,extended release 24 hr RxNorm: 700152 Take 1 Tablet(s) Oral QD 07/13/19 24 No Stop Date Active ammonium lactate 12 % topical cream RxNorm: 475124 Apply 1 Application Topical BID 07/13/19 24 No Stop Date Active hydrocortisone 2.5 % topical cream RxNorm: 437938 Apply 1 Application Topical BID as needed 07/13/19 24 No Stop Date Active rosuvastatin 20 mg sprinkle capsule RxNorm: 1283129 Take 1 Capsule(s) Oral QD 07/13/19 24 No Stop Date Active Vascepa 1 gram capsule RxNorm: 1755983 Take 2 Capsule(s) Oral BID 07/13/19 24 No Stop Date Active venlafaxine ER 75 mg capsule,extended release 24 hr RxNorm: 606337 Take 3 Capsule(s) Oral QD 07/13/19 24 No Stop Date Active Basaglar KwikPen U-100 Insulin 100 unit/mL (3 mL) subcutaneous RxNorm: 4451173 Inject 30U SubQ twice daily 07/07/19 24 025 Active Please dispense one month supply. Basaglar KwikPen U-100 Insulin 100 unit/mL (3 mL) subcutaneous RxNorm: 1814018 Inject 30U SubQ twice daily 07/07/19 24 024 Inactive Please dispense one month supply. pregabalin 150 mg capsule RxNorm: 888821 Take 1 Capsule(s) Oral QHS every night at bedtime 07/05/19 24 024 Inactive pregabalin 150 mg capsule RxNorm: 743907 Take 1 Capsule(s) Oral QHS every night at bedtime 07/05/19 24 024 Inactive polyethylene glycol 3350 17 gram/dose oral powder RxNorm: 805464 Take 1 Packet Oral QD as needed (1 packet = 17g) mix with 4-8oz of liquid 06/15/19 024 Inactive bisacodyl 10 mg rectal suppository RxNorm: 358176 Insert one suppository per rectum once daily as needed for constipation 06/15/19 024 Inactive bisacodyl 10 mg rectal suppository RxNorm: 033710 Insert one suppository per rectum once daily as needed for constipation 06/15/19 024 Inactive pregabalin 100 mg capsule RxNorm: 791141 Take 1 Capsule(s) Oral QAM every morning 04/27/20 024 Inactive Levemir FlexPen 100 unit/mL (3 mL) solution subcutaneous insulin pen RxNorm: 574825 Inject 30 Unit(s) Subcutaneous BID 04/27/20 024 Inactive rosuvastatin 40 mg tablet RxNorm: 527142 Take 1 Tablet(s) Oral QPM every evening 04/16/20 024 Inactive D/C rosuvastatin 20mg venlafaxine ER 75 mg capsule,extended release 24 hr RxNorm: 917451 Take 3 Capsule(s) Oral QD 04/14/20 23 023 Inactive pregabalin 100 mg capsule RxNorm: 152714 Take 1 Capsule(s) Oral QAM every morning [...] meter clotrimazole 1 % topical cream RxNorm: 556173 Take apply topically to abdominal folds twice daily for 14 days 03/12/20 024 Inactive Ozempic 1 mg/dose (4 mg/3 mL) subcutaneous pen injector RxNorm: 9929348 Inject 1 Milligram(s) Subcutaneous QW once a week 03/11/20 023 Inactive rosuvastatin 20 mg tablet RxNorm: 692577 Take 1 Tablet(s) Oral QD 02/26/20 23 023 Inactive d/c pravastatin 80mg Ozempic 1 mg/dose (4 mg/3 mL) subcutaneous pen injector RxNorm: 3531528 Inject 1 Milligram(s) Subcutaneous QW once a week 02/20/20 23 023 Inactive pregabalin 150 mg capsule RxNorm: 602715 Take 1 Capsule(s) Oral HS at bed time 02/19/20 23 023 Inactive pregabalin 100 mg capsule RxNorm: 404299 Take 1 Capsule(s) Oral QAM every morning 02/18/20 023 Inactive venlafaxine ER 75 mg capsule,extended release 24 hr RxNorm: 017683 Take 3 Capsule(s) Oral QD 02/04/20 23 023 Inactive FreeStyle Chema 2 Sensor kit RxNorm: use as directed 02/04/20 23 023 Inactive FreeStyle Chema 2 Sensor kit RxNorm: use as directed 02/04/20 23 024 Inactive fluconazole 150 mg tablet RxNorm: 786610 Take 1 Tablet(s) Oral on day 3 and on day 6 02/03/20 024 Active chlorthalidone 25 mg tablet RxNorm: 837003 Take 1 Tablet(s) Oral QAM every morning 02/03/20 23 No Stop Date Active venlafaxine ER 150 mg capsule,extended release 24 hr RxNorm: 003547 Take 1 Capsule(s) Oral QD 02/03/20 23 023 Inactive acetaminophen 500 mg tablet RxNorm: 663434 1 TABLET ORALLY 3 TIMES DAILY (MAX APAP:4GM/24HR) 12/15/19 23 023 Inactive clotrimazole 1 % topical cream RxNorm: 530108 apply 1g topically to top of feet and in between toes BID 12/09/19 23 023 Inactive potassium chloride ER 20 mEq tablet,extended release RxNorm: 708477 Take 1 Tablet(s) Oral BID 12/09/19 23 024 Inactive d/c 20mEq once daily (sent from hospital) nystatin 100,000 unit/gram topical powder RxNorm: 971697 APPLY TO AFFECTED AREAS TOPICALLY 2 TIMES DAILY 11/21/19 024 Inactive Nystop 100,000 unit/gram topical powder RxNorm: 596072 Apply to abd folds, under breasts and L side of groin Topical BID x 14 days, then BID PRN 11/20/19 023 Inactive dx: yeast dermatitis Bengay Ultra Strength 4 %-30 %-10 % topical cream RxNorm: 115563 Apply 1 Gram(s) Topical QID PRN to feet and legs for neuropathic pain 11/11/19 024 Inactive clotrimazole 1 % topical cream RxNorm: 671328 Apply 1/2 Gram(s) Topical BID Apply to affected areas of groin, periarea, and abdominal topically 2 times daily 11/10/19 023 Inactive hydrocortisone 2.5 % topical cream RxNorm: 238745 Apply 1/2 Gram(s) Topical BID as needed 11/10/19 024 Inactive Humulin R U-500 (Concentrated) Insulin 500 unit/mL subcutaneous soln RxNorm: 933091 Inject 100 Unit(s) Subcutaneous TID 10/07/19 024 Inactive Levemir FlexPen 100 unit/mL (3 mL) solution subcutaneous insulin pen RxNorm: 861892 Inject 30 Unit(s) Subcutaneous BID 10/07/19 023 Inactive Ozempic 0.25 mg or 0.5 mg (2 mg/3 mL) subcutaneous pen injector RxNorm: 4836101 Inject 1/2 Milligram(s) Subcutaneous QW once a week 10/07/19 23 024 Inactive aripiprazole 15 mg tablet RxNorm: 793118 1/2 TAB (7.5MG) ORALLY DAILY (DX:MAJOR DEPRESSIVE DISORDER) 09/23/19 023 Inactive Lancets,Thin 28 gauge RxNorm: Use 1 as directed QID 09/15/19 23 024 Inactive Accu-Chek Guide test strips RxNorm: Use 1 Test Strip QID 09/15/19 23 023 Inactive ok to substitute with any covered alternative test strip torsemide 20 mg tablet RxNorm: 205209 Take 1 Tablet(s) Oral BID 09/09/19 23 024 Inactive d/c once daily dosing carvedilol 25 mg tablet RxNorm: 186319 Take 1 Tablet(s) Oral QD 08/25/19 23 024 Inactive pregabalin 150 mg capsule RxNorm: 091423 1 Capsule(s) Oral HS at bed time 08/18/19 23 023 Inactive pregabalin 100 mg capsule RxNorm: 612693 1 Capsule(s) Oral QAM every morning 08/18/19 23 023 Inactive carvedilol 25 mg tablet RxNorm: 368961 1 Tablet(s) Oral QD 07/28/19 23 023 Inactive lisinopril 20 mg tablet RxNorm: 615345 Give 1 Tablet(s) Oral QD 07/28/19 23 023 Inactive Lyrica 150 mg capsule RxNorm: 043314 Take 1 Capsule(s) Oral QHS every night at bedtime 07/19/19 023 Inactive d/c 100mg dose Diflucan 150 mg tablet RxNorm: 554333 Take 1 Tablet(s) Oral QD repeat on day 3 and 6 07/19/19 23 023 Inactive pregabalin 100 mg capsule RxNorm: 696729 Take 1 Capsule(s) Oral QAM every morning 07/19/19 23 023 Inactive gatifloxacin 0.5 % eye drops RxNorm: 409609 Instill 1 Drop(s) as directed TID Instill 1 drop in to affected eye(s) starting 1 day prior to surgery and continue until gone (do not exceed 4 weeks). 07/13/19 23 023 Inactive carvedilol 25 mg tablet RxNorm: 683528 2 Tablet(s) Oral BID 07/13/19 23 023 Inactive Humulin R Regular U-100 Insulin 100 unit/mL injection solution RxNorm: 239041 85 Unit(s) Injection TID 07/13/19 23 023 Inactive ketorolac 0.5 % eye drops RxNorm: 836473 Instill 1 Drop(s) as directed QID Instill 1 drop into affected eye(s) 4 times daily starting 1 day prior to surgery and continue until gone (do not exceed 4 weeks). 07/13/19 23 023 Inactive Diflucan 150 mg tablet RxNorm: 233273 Take 1 Tablet(s) Oral QD repeat on day 3 and 6 06/30/19 23 023 Inactive Accu-Chek Guide test strips RxNorm: Use 1 Test Strip QID Use 1 test strip to monitor blood glucose 4 times daily and as needed. Dx:E11.42. 06/23/19 23 023 Inactive ok to substitute with any covered alternative test strip dextromethorphan-gu aifenesin 10 mg-100 mg/5 mL oral liquid RxNorm: 007964 Take 10 Milliliter(s) Oral every 4 hours as needed for cough 06/19/19 23 023 Inactive dextromethorphan-gu aifenesin 10 mg-100 mg/5 mL oral liquid RxNorm: 239388 Take 10 Milliliter(s) Oral every 4 hours as needed for cough 06/19/19 23 023 Inactive Lyrica 150 mg capsule RxNorm: 558145 Take 1 Capsule(s) Oral QHS every night at bedtime 06/18/19 23 023 Inactive d/c 100mg dose aripiprazole 15 mg tablet RxNorm: 012120 1/2 TAB (7.5MG) ORALLY DAILY (DX:MAJOR DEPRESSIVE DISORDER) 06/05/19 23 023 Inactive pregabalin 100 mg capsule RxNorm: 692575 1 Capsule(s) Oral QAM every morning 06/02/19 23 023 Inactive Banophen 50 mg capsule RxNorm: 7477661 Take 1 Capsule(s) Oral Q6H every 6 hours as needed 05/19/19 23 No Stop Date Active Novolog Flexpen U-100 Insulin aspart 100 unit/mL (3 mL) subcutaneous RxNorm: 3811900 Inject 10 Unit(s) Subcutaneous QHS every night at bedtime with nighttime snack 04/08/20 22 022 Inactive Novolog Flexpen U-100 Insulin aspart 100 unit/mL (3 mL) subcutaneous RxNorm: 9726743 Inject 42 Unit(s) Subcutaneous TID in addition to sliding scale 04/08/20 022 Inactive d/c 36u albuterol sulfate HFA 90 mcg/actuation aerosol inhaler RxNorm: 6918352 Take 2 Puff(s) Inhalation Q4H every four hours as needed as needed for SOB, cough, or wheezing 04/07/20 030 Active Banophen 50 mg capsule RxNorm: 2986885 Take 1 Capsule(s) Oral Q6H every 6 hours as needed 04/06/20 023 Inactive diphenhydramine 50 mg tablet RxNorm: 4617597 Take 1 Tablet(s) Oral Q6H every 6 hours as needed 04/06/20 022 Inactive diphenhydramine 50 mg tablet RxNorm: 3942922 1 Tablet(s) Oral Q6H every 6 hours as needed 04/06/20 022 Inactive Abilify 15 mg tablet RxNorm: 979449 1/2 Tablet(s) Oral QD 03/10/20 023 Inactive Shingrix (PF) 50 mcg/0.5 mL intramuscular suspension, kit RxNorm: 7734913 Administer 1/2 Milliliter(s) Intramuscular QD one time shingrix step 2 ( step 1 given 11/04/21) WITH needle - Nursing please administer upon arrival and once administered post a bridge message with date of administration, facility supervisor, expiration date, and lot# so we can update [facility] 02/18/20 22 022 Inactive dispense with needle Shingrix (PF) 50 mcg/0.5 mL intramuscular suspension, kit RxNorm: 6701906 Administer 1/2 Milliliter(s) Intramuscular QD one time shingrix step 2 ( step 1 given 11/04/21) WITH needle - Nursing please administer upon arrival and once administered post a bridge message with date of administration, facility supervisor, expiration date, and lot# so we can update [facility] 02/18/20 22 022 Inactive dispense with needle polyethylene glycol 3350 17 gram/dose oral powder RxNorm: 466072 Take 17=1 capful Gram(s) Oral QD mix with 4-8oz of liquid 01/08/20 22 023 Inactive take this in addition to BID prn order Lyrica 100 mg capsule RxNorm: 799929 Take 1 Capsule(s) Oral QAM every morning 01/08/20 22 022 Inactive d/c 50mg dose acetaminophen 500 mg tablet RxNorm: 598405 Take 1 Tablet(s) Oral TID 01/08/20 22 022 Inactive d/c PRN order Lyrica 150 mg capsule RxNorm: 373751 Take 1 Capsule(s) Oral QHS every night at bedtime 01/08/20 22 023 Inactive d/c 100mg dose Abilify 5 mg tablet RxNorm: 320381 Take 1 Tablet(s) Oral QD take 1 tab po QD #30 refill 5 dx: MDD 12/12/19 22 022 Inactive Abilify 5 mg tablet RxNorm: 323555 Take 1 Tablet(s) Oral QD take 1 tab po QD #30 refill 5 dx: MDD 12/12/19 22 022 Inactive Novolog Flexpen U-100 Insulin aspart 100 unit/mL (3 mL) subcutaneous RxNorm: 2173440 Inject 42 Unit(s) Subcutaneous TID in addition to sliding scale 12/10/19 22 022 Inactive d/c 36u chlorthalidone 25 mg tablet RxNorm: 668486 Take 1 Tablet(s) Oral QAM every morning 12/10/19 22 023 Inactive pregabalin 50 mg capsule RxNorm: 537414 Take 1 Capsule(s) Oral QAM every morning 11/12/19 22 022 Inactive tetanus-diphtheria toxoids-Td 2 Lf unit-2 Lf unit/0.5 mL IM suspension RxNorm: 139 Take 0.5 Miscellaneous Intramuscular 11/12/19 22 022 Inactive need tdap - nursing to administer upon arrival pregabalin 50 mg capsule RxNorm: 648085 Take 1 Capsule(s) Oral QAM every morning 10/16/19 22 022 Inactive pregabalin 50 mg capsule RxNorm: 445672 Take 1 Capsule(s) Oral QAM every morning 10/16/19 22 022 Inactive pregabalin 50 mg capsule RxNorm: 188208 1 Capsule(s) Oral QAM every morning 10/15/19 22 022 Inactive Shingrix (PF) 50 mcg/0.5 mL intramuscular suspension, kit RxNorm: 5765266 Administer 1/2 Milliliter(s) Intramuscular one time Nursing please administer upon arrival and once administered post a bridge message with date of administration, facility 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 10/09/19 22 022 Inactive shingrix step 1 Shingrix (PF) 50 mcg/0.5 mL intramuscular suspension, kit RxNorm: 0106357 Administer 1/2 Milliliter(s) Intramuscular one time Nursing please administer upon arrival and once administered post a bridge message with date of administration, facility 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 10/09/19 22 022 Inactive shingrix step 1 cholecalciferol (vitamin D3) 1,250 mcg (50,000 unit) capsule RxNorm: 168026 Take 1 Capsule(s) Oral QW once a [...] aspart 100 unit/mL (3 mL) subcutaneous RxNorm: 6528261 Inject 10 Unit(s) Subcutaneous QHS every night at bedtime with nighttime snack 10/08/19 22 022 Inactive Shingrix (PF) 50 mcg/0.5 mL intramuscular suspension, kit RxNorm: 9162214 ADMINISTER 2-DOSE SERIES PER CDC GUIDELINES 10/08/19 22 05/23/2 022 Active Shingrix (PF) 50 mcg/0.5 mL intramuscular suspension, kit RxNorm: 2733962 ADMINISTER 2-DOSE SERIES PER CDC GUIDELINES 10/08/19 22 Inactive Novolog Flexpen U-100 Insulin aspart 100 unit/mL (3 mL) subcutaneous RxNorm: 8913982 Inject 36 Unit(s) Subcutaneous TID in addition to sliding scale 10/08/19 Inactive Novofine Autocover 30 gauge x 1/3 needle RxNorm: Use 1 Miscellaneous UD as directed Use 1 needle as directed to administer insulin 5 times a day Dx:E11.42. 10/03/19 Inactive ok to substitute with any covered alternative pen needle benzoyl peroxide 10 % topical cleanser RxNorm: 561852 Apply 1 Application Topical QD apply to face, wash rinse and dry once daily (may change to QOD if drying) 08/19/19 Inactive (%covered by insurance) #60ml refill 11 dx: acne benzoyl peroxide 10 % topical cleanser RxNorm: 562681 Apply 1 Application Topical QD apply to face, wash rinse and dry once daily (may change to QOD if drying) 08/19/19 022 Inactive (%covered by insurance) #60ml refill 11 dx: acne benzoyl peroxide 10 % topical cleanser RxNorm: 296587 Apply 1 Application Topical QD apply to face, wash rinse and dry once daily (may change to QOD if drying) 08/19/19 022 Inactive (%covered by insurance) #60ml refill 11 dx: acne Lyrica 50 mg capsule RxNorm: 236848 Take 1 Capsule(s) Oral QAM every morning Take 1 capsule by mouth once daily 08/19/19 22 022 Inactive benzoyl peroxide 10 % topical cleanser RxNorm: 254009 Apply 1 Application Topical QD apply to face, wash rinse and dry once daily (may change to QOD if drying) 08/19/19 22 022 Inactive (%covered by insurance) #60ml refill 11 dx: acne Lyrica 100 mg capsule RxNorm: 394796 Take 1 Capsule(s) Oral QHS every night at bedtime Take 1 capsule by mouth once daily at bedtime 08/19/19 22 022 Inactive Lyrica 100 mg capsule RxNorm: 722438 Take 1 Capsule(s) Oral QHS every night at bedtime Take 1 capsule by mouth once daily at bedtime 08/16/19 22 022 Inactive Lyrica 50 mg capsule RxNorm: 584007 Take 1 Capsule(s) Oral QAM every morning Take 1 capsule by mouth once daily 08/16/19 22 022 Inactive Levemir FlexTouch U-100 Insulin 100 unit/mL (3 mL) subcutaneous pen RxNorm: 758079 Inject 86 Unit(s) Subcutaneous BID 08/05/19 22 022 Inactive d/c 83units BID Lyrica 100 mg capsule RxNorm: 991603 Take 1 Capsule(s) Oral QHS every night at bedtime Take 1 capsule by mouth once daily at bedtime 07/14/19 22 022 Inactive Lyrica 50 mg capsule RxNorm: 811628 Take 1 Capsule(s) Oral QAM every morning Take 1 capsule by mouth once daily 07/14/19 22 022 Inactive Levemir FlexTouch U-100 Insulin 100 unit/mL (3 mL) subcutaneous pen RxNorm: 144953 Inject 83 Unit(s) Subcutaneous BID 07/08/19 22 [...] test strip hydralazine 50 mg tablet RxNorm: 027440 Take 1 Tablet(s) Oral QID 05/05/20 21 022 Inactive venlafaxine ER 225 mg tablet,extended release 24 hr RxNorm: 243047 Take 1 Tablet(s) Oral QD 05/05/20 21 021 Inactive venlafaxine ER 225 mg tablet,extended release 24 hr RxNorm: 127140 Take 1 Tablet(s) Oral QD 05/05/20 21 022 Inactive isosorbide mononitrate ER 30 mg tablet,extended release 24 hr RxNorm: 382081 Take 1 Tablet(s) Oral QD 05/05/20 21 024 Inactive hydralazine 50 mg tablet RxNorm: 407158 Take 1 Tablet(s) Oral QID 05/05/20 21 021 Inactive aspirin 81 mg tablet,delayed release RxNorm: 171318 Take 1 Tablet(s) Oral QD 03/31/20 21 022 Inactive Vitamin D2 1,250 mcg (50,000 unit) capsule RxNorm: 7907680 Take 1 Capsule(s) Oral QW once a week x 12 weeks 03/31/20 21 022 Inactive Vitamin D2 1,250 mcg (50,000 unit) capsule RxNorm: 3397427 Take 1 Capsule(s) Oral QW once a week 03/31/20 021 Inactive Zetia 10 mg tablet RxNorm: 248525 Take 1 Tablet(s) Oral QD 03/31/20 024 Inactive Zetia 10 mg tablet RxNorm: 916840 Take 1 Tablet(s) Oral QD 03/31/20 021 Inactive hydralazine 25 mg tablet RxNorm: 547583 Take 1 Tablet(s) Oral QID 03/31/20 021 Inactive hydralazine 25 mg tablet RxNorm: 754845 Take 1 Tablet(s) Oral QID 03/31/20 021 Inactive hydralazine 10 mg tablet RxNorm: 593196 Take 1 Tablet(s) Oral QID 03/03/20 021 Inactive cephalexin 500 mg tablet RxNorm: 230926 Take 1 Tablet(s) Oral QID 02/27/20 021 Inactive cephalexin 500 mg tablet RxNorm: 235059 Take 1 Tablet(s) Oral QID 02/27/20 021 Inactive lisinopril 40 mg tablet RxNorm: 777828 Take 1 Tablet(s) Oral QD 02/11/20 023 Inactive Eliquis 5 mg tablet RxNorm: 3943313 Take 1 Tablet(s) Oral BID 01/05/20 022 Inactive Eliquis 5 mg tablet RxNorm: 1677903 Take 2 Tablet(s) Oral QD 01/01/20 21 021 Inactive Lyrica 50 mg capsule RxNorm: 341075 Take 1 Capsule(s) Oral QAM every morning 12/24/19 021 Inactive Lyrica 100 mg capsule RxNorm: 620167 Take 1 Capsule(s) Oral QHS every night at bedtime 12/24/19 21 021 Inactive clotrimazole 1 % topical cream RxNorm: 766337 Apply to right foot and toes Topical BID 12/04/19 21 023 Inactive metoprolol succinate ER 200 mg tablet,extended release 24 hr RxNorm: 642454 Take 1 Tablet(s) Oral QD 12/04/19 21 023 Inactive ciprofloxacin 500 mg tablet RxNorm: 926471 Take 1 Tablet(s) Oral QD 11/30/19 21 021 Inactive DX ofloxacin otic drops Accu-Chek Guide test strips RxNorm: USE 1 TO CHECK GLUCOSE 4 TIMES DAILY AND NEEDED 11/15/19 21 023 Inactive Blood Glucose Test strips RxNorm: Use 1 Test Strip QID at PRN 11/05/19 21 023 Inactive E11.42 lisinopril 30 mg tablet RxNorm: 002195 Take 1 Tablet(s) Oral QD 10/30/19 021 Inactive lisinopril 20 mg tablet RxNorm: 758232 Take 1 Tablet(s) Oral QD 10/23/19 021 Inactive lisinopril 20 mg tablet RxNorm: 387598 Take 1 Tablet(s) Oral QD 10/23/19 021 Inactive lisinopril 10 mg tablet RxNorm: 401711 Take 1 Tablet(s) Oral QD 10/02/19 021 Inactive icosapent ethyl 1 gram capsule RxNorm: 0138362 Take 2 Capsule(s) (2 gm) Oral BID with meals 09/12/19 024 Inactive Okay to dispense one 2gm tab if you have that available. icosapent ethyl 1 gram capsule RxNorm: 5011043 Take 2 Capsule(s) Oral BID 09/12/19 21 021 Inactive Okay to dispense one 2gm tab if you have that available. amlodipine 10 mg tablet RxNorm: 173214 Take 1 Tablet(s) Oral QD 09/04/19 21 022 Inactive aspirin 81 mg tablet,delayed release RxNorm: 721286 Take 1 Tablet(s) Oral QD 09/04/19 21 021 Inactive Levemir FlexTouch U-100 Insulin 100 unit/mL (3 mL) subcutaneous pen RxNorm: 459573 Inject 150 Unit(s) Subcutaneous BID 09/04/19 21 022 Inactive venlafaxine ER 150 mg tablet,extended release 24 hr RxNorm: 152049 Take 1 Tablet(s) Oral QD 09/04/19 Inactive clotrimazole-betame thasone 1 %-0.05 % topical cream RxNorm: 550399 Apply to rash on red area on left abdomen/chest Topical BID 08/10/19 21 Inactive amlodipine 5 mg tablet RxNorm: 056640 Take 1 Tablet(s) Oral QD 07/31/19 Inactive cephalexin 500 mg tablet RxNorm: 987948 Take 1 Tablet(s) Oral BID BID - Twice Daily 07/31/19 Inactive Start 08/01/20 pantoprazole 40 mg tablet,delayed release RxNorm: 022512 Take 1 Tablet(s) Oral QAM every morning 07/08/19 Inactive senna 8.6 mg tablet RxNorm: 037250 Take 1 Tablet(s) Oral QD 07/08/19 Inactive carbamazepine 200 mg tablet RxNorm: 572950 Take 1 Tablet(s) Oral BID 07/08/19 Inactive clopidogrel 75 mg tablet RxNorm: 033960 Take 1 Tablet(s) Oral QD 07/08/19 Inactive Blood Glucose Test strips RxNorm: Use 1 Test Strip QID at PRN 07/08/19 21 Inactive E11.42 Novolog Flexpen U-100 Insulin aspart 100 unit/mL (3 mL) subcutaneous RxNorm: 1814000 Administer per sliding scale Milliliter(s) Subcutaneous TID 151-200: 10 u; 201-250: 20 u; 251-300: 30 u; 301-350: 40 u; 351-400: 50 u. 07/08/19 Inactive lisinopril 5 mg tablet RxNorm: 531074 Take 1 Tablet(s) Oral QD 07/08/19 Inactive Novolog Flexpen U-100 Insulin aspart 100 unit/mL (3 mL) subcutaneous RxNorm: 3632669 Inject 85 Unit(s) Subcutaneous TID 07/08/19 Inactive pravastatin 80 mg tablet RxNorm: 141174 Take 1 Tablet(s) Oral QHS every night at bedtime 07/08/19 023 Inactive clotrimazole 1 % topical cream RxNorm: 038321 Apply to bilateral groin areas Topical BID 07/08/19 022 Inactive metoprolol succinate ER 200 mg tablet,extended release 24 hr RxNorm: 211354 Take 1 Tablet(s) Oral QD 07/08/19 021 Inactive Vitamin D3 25 mcg (1,000 unit) tablet RxNorm: 655116 Take 1 Tablet(s) Oral QD 07/08/19 021 Inactive isosorbide dinitrate 30 mg tablet RxNorm: 911314 Take 1 Tablet(s) Oral QD 07/08/19 021 Inactive Levemir FlexTouch U-100 Insulin 100 unit/mL (3 mL) subcutaneous pen RxNorm: 259206 Inject 140 Unit(s) Subcutaneous BID 07/08/19 021 Inactive torsemide 20 mg tablet RxNorm: 046905 Take 1 Tablet(s) Oral QD 07/08/19 023 Inactive venlafaxine 75 mg tablet RxNorm: 460131 Take 1 Tablet(s) Oral QD 07/08/19 021 Inactive acetaminophen 500 mg tablet RxNorm: 735626 Take 1 Tablet(s) Oral TID as needed for headache 06/18/19 021 Inactive acetaminophen 500 mg tablet RxNorm: 360172 Take 1 Tablet(s) Oral TID as needed for headache 06/18/19 021 Inactive Lyrica 100 mg capsule RxNorm: 735536 Take 1 Capsule(s) Oral QHS every night at bedtime 06/11/19 021 Inactive Lyrica 50 mg capsule RxNorm: 746647 Take 1 Capsule(s) Oral QAM every morning 06/10/19 021 Inactive hydrocortisone 2.5 % topical cream RxNorm: 642076 Apply to bilateral groin creases Topical BID 05/15/20 20 021 Inactive clotrimazole 1 % topical cream RxNorm: 402268 Apply to bilateral groin areas Topical BID 05/15/20 20 Inactive Lyrica 50 mg capsule RxNorm: 798920 Take 1 Capsule(s) Oral QAM every morning 05/14/20 20 Inactive Lyrica 100 mg capsule RxNorm: 517922 Take 1 Capsule(s) Oral QHS every night [...] Inactive Nystop 100,000 unit/gram topical powder RxNorm: 140292 Apply to abd folds, under breasts and L side of groin Topical BID x 14 days, then BID PRN 04/08/20 20 Inactive dx: yeast dermatitis Lyrica 100 mg capsule RxNorm: 712404 Take 1 Capsule(s) Oral QHS every night at bedtime 03/13/20 20 Inactive Lyrica 50 mg capsule RxNorm: 680879 Take 1 Capsule(s) Oral QAM every morning 03/13/20 20 Inactive ketoconazole 2 % shampoo RxNorm: 132576 Apply Topical two times a week with showers 03/11/20 20 024 Inactive cholecalciferol (vitamin D3) 50 mcg (2,000 unit) tablet RxNorm: 655159 Take 1 Tablet(s) Oral QD 03/11/20 20 021 Inactive Zetia 10 mg tablet RxNorm: 260873 Take 1 Tablet(s) Oral QD 03/07/20 20 Inactive Zetia 10 mg tablet RxNorm: 171666 Take 1 Tablet(s) Oral QD 03/07/20 20 Inactive Lyrica 50 mg capsule RxNorm: 656736 Take 1 Capsule(s) Oral QAM every morning 02/15/20 20 Inactive Lyrica 100 mg capsule RxNorm: 786256 Take 1 Capsule(s) Oral QHS every night at bedtime 02/15/20 Inactive Lyrica 100 mg capsule RxNorm: 097203 Take 1 Capsule(s) Oral QHS every night at bedtime 02/15/20 Inactive Lyrica 50 mg capsule RxNorm: 399746 Take 1 Capsule(s) Oral QAM every morning 02/15/20 Inactive metoprolol succinate ER 200 mg tablet,extended release 24 hr RxNorm: 820039 Take 1 Tablet(s) Oral QD 08/11 Activeloperamide 2 mg capsuleRxNorm: 764046Guqx 1 Capsule(s) Oral QID as needed 06/12/2021ctivehydralazine 50 mg tabletRxNorm: 858563Ugod 1 Tablet(s) Oral QID 08/11/2022ctivevenlafaxine ER 75 mg capsule,extended release 24 hrRxNorm: 584003Ytyq 3 Capsule(s) Oral QD/Inactivepolyethylene glycol 3350 17 gram/dose oral powderRxNorm: 935118Coze 17=1 capful Gram(s) Oral BID as needed mix with 4-8oz of dfirpo32/Inactiveicosapent ethyl 1 gram capsuleRxNorm: 7097954Lcdi 2 Capsule(s) (2 gm) Oral BID with meals /InactiveOkay to dispense one 2gm tab if you have that available.Levemir FlexTouch U-100 Insulin 100 unit/mL (3 mL) subcutaneous pen RxNorm: 077401Ggjfkx 80 Unit(s) Subcutaneous BID/Inactive Novolog Flexpen U-100 Insulin aspart 100 unit/mL (3 mL) subcutaneousRxNorm: 2560287Nwkgxc 30 Unit(s) Subcutaneous TID with mealsInactive Medication Administered No Medication Administered data Reason For Visit No Reason For Visit data Plan of Care Planned Activity Notes Codes Status Date Patient Education: Patient Medication Summary Deyeepkos03/21/2024ppointment: Sandra Clark WPtel: [address] [facility] [address] [id number] [facility] Follow Up12/09/2022ppointment: Tapan Shirley WPtel: [address] [facility] 300 [id number] USTCM10/26/2022Referral: [facility] WPtel: [address] , [address] [id number] USReferralRecords Jngsvkgm72/08/2023ppointment: Tapan Shirley WPtel: [address] [facility] 300 [id number] US/U008/11/2022ppointment: Tapan Shirley WPtel: [address] [facility] 300 [id number] USF/U007/14/2022ppointment: Tapan Shirley WPtel: [address] [facility] 300 [id number] USF/U002/10/2022eferral: [facility] WPtel: [address] [id number] PLYdkpbmfyGlcsbhoow55/12/2022Referral: General CardiologyReferralCompleted 1Referral: General PsychologistReferralClosedReferral: General PsychiatristReferralPatient/Family [...] [facility] to have closer nursing attention. Sister yJotsna involved in his care cell# [phone] Guardian: Giulia (tapan met in person 09/01/21), [...] in 1 year to monitor growth (due )Dr. Martines note from 11.08.2023 at [facility] (follow up 6 months)Colon & Rectal Surgery visit scheduled for 03/08/24 with Matilde Pérez PA-C. 01/05/2024
--- OUTSIDE RECORDS SUMMARY | 2024-01-13 04:39 | XMS_ITS | CCD ---
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 Name Role Phone Harrison Durham Primary Care Provider Leona vailable Harrison Durham Chronic Care Management U navailable Summary Purpose DataExchange Insurance Providers Payer name Policy type / Coverage type Covered constitution party ID Effective Begin Date Effective End Date [place] Part B [id number] Unknown Unknown [place] Medicare Part B [id number] Unknown Unknown Family history Sister Brittany Suggs [...] Nursing Home 09/03/[address]: 5945836 Non-Smoker / No History of Smoking 09/02/[address]: 864856670 No Alcohol Consum ption 09/02/2020 Allergies, Adverse Reactions, Alerts Substance Reaction Codes Entered Date Inactivated Date Status * NO KNOWN FOOD ALLERGIES Sdseghs5207/13/2023No Inactive DateActiveLISINOPRILRxNorm: 1834239No Inactive DateActiveMetformin CBgTvppowa38/28/2020No Inactive DateActive* NO KNOWN ENVIRONMENTAL PUZGSWBGJOnagbqs85/27/2024No Inactive DateActive Problems Condition Codes Effective Dates Condition St atus BMI 60.0-69.9, adult ICD-10: Z68.44 ICD-9: V85.4408/ctiveLow back painICD-10: M54.50 ICD-9: 724.208ctiveLower extremity edemaICD-10: R60.0 ICD-9: 782.308/ctiveOnychogryposisICD-10: L60.2 ICD-9: 703.808/ctivePhysical deconditioningICD-10: R53.81 ICD-9: 799.308/ctivePressure ulcer of left calf, unstageableICD-10: L89.890 ICD-9: 707.0908/ctivePVD (peripheral vascular disease)ICD-10: I73.9 ICD-9: 443.908/ctiveSeizure disorderICD-10: G40.909 ICD-9: 345.9008/ctiveConstipation by delayed colonic transitICD-10: K59.01 ICD-9: 564.0107/ctiveHx of deep venous thrombosisICD-10: Z86.718 ICD-9: V12.5107/ctiveHypercoagulable stateICD-10: D68.59 ICD-9: 289.8107/ctiveHypertensive heart disease without heart failure ICD-10: I11.9 ICD-9: 402.9007/ctiveStage 2 chronic 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ICD-10: E11.22 ICD-9: 250.4007/ctiveType 2 diabetes mellitus with diabetic polyneuropathy, with long-term current use of insulinICD-10: E11.42 ICD-9: 250.6007/ctiveVitamin D deficiencyICD-10: E55.9 ICD-9: 268.907/ctiveHypokalemiaICD-10: E87.6 ICD-9: 276.806/ctiveMajor depression, recurrentICD-10: F33.9 ICD-9: 296.3006/ctiveCandidal intertrigoICD-10: B37.2 ICD-9: 112.305/ctiveHistory of anemia due to CKDICD-10: N18.9 ICD-9: 585.905ctiveLearning disabilityICD-10: F81.9 ICD-9: 315.205ctiveParaparesis of both lower limbsICD-10: G82.20 ICD-9: 344.105ctiveReducible umbilical herniaICD-10: K42.9 ICD-9: 553.105ctiveCallus of heelICD-10: L84 ICD-9: 71808/esolvedGout due to renal impairmentICD-10: M10.30 ICD-9: 274.10010/12/2023esolvedHyperhidrosis of palmsICD-10: L74.512 ICD-9: 705.21010/12/2023esolvedHyperlipidemia, unspecifiedICD-10: E78.5 ICD-9: 272.405esolvedOther shelter (current) drug therapyICD-10: Z79.899 ICD-9: V58.6905esolvedPain of right heelICD-10: M79.671 ICD-9: 729.505/esolvedStage 2 chronic kidney diseaseICD-10: N18.2 ICD-9: 585.esolvedTinea pedis of both feetICD-10: B35.3 ICD-9: 110.405esolvedAmputated toe of right footICD-10: S98.131A ICD-9: 895.004/ctiveDiabetic neuropathy associated with type 2 diabetes mellitusICD-10: E11.40 ICD-9: 250.6004/ctiveHyperlipidemia associated with type 2 diabetes mellitusICD-10: E11.69 ICD-9: 250.8004ctiveRecurrent major depressive disorder, in partial remissionICD-10: F33.41 ICD-9: 296.3504/ctiveCellulitisICD-10: L03.90 ICD-9: 682.904esolvedDandruff in adultICD-10: L21.0 ICD-9: 690.1804/4ResolvedEncounter for other specified special examinationsICD-10: Z01.89 ICD-9: V72.8504/esolvedEncounter for screening for nutritional disorder ICD-10: Z13.21 ICD-9: V77.9904/esolvedImpacted cerumen, left earICD-10: H61.22 ICD-9: 380.404/esolvedShortness of breathICD-10: R06.02 ICD-9: 786.0504/esolvedSkin tagICD-10: L91.8 ICD-9: 701.904esolvedCoronary artery disease involving [place] coronary artery of [place] heart, angina presence unspecifiedICD-10: I25.10 ICD-9: 414.0102ctiveInappropriate sexual behaviorICD-10: Z72.89 ICD-9: 312.8910/ctiveAnnual physical examICD-10: Z00.00 ICD-9: V70.009/ctivePre-op evaluationICD-10: Z01.818 ICD-9: V72.8403/ctiveSecondary hypertensionICD-10: I15.9 ICD-9: 405.9903ctiveDepressionICD-10: F32.9 ICD-9: 22306esolvedDVT (deep venous thrombosis)ICD-10: I82.409 ICD-9: 453.4009esolvedEncounter for immunizationICD-10: Z23 ICD-9: V03.89092ResolvedLong term (current) use of insulinICD-10: Z79.4 02/10/2022esolvedMuscular painICD-10: M79.10 ICD-9: 729.109esolvedHypertension associated with diabetesICD-10: E11.59 ICD-9: 250.8008/23/2022ResolvedContact with and (suspected) exposure to covid-19 ICD-10: Z20.822 ICD-9: V01.7908/1ResolvedOther infective acute otitis externa of left ear ICD-10: H60.392 ICD-9: 380.10081ResolvedScrotal skin lesionICD-10: N50.9 ICD-9: 608.9081ResolvedAnemia due to stage 3b chronic kidney diseaseICD- 10: N18.32 ICD-9: 285.21051ResolvedChronic kidney disease, stage 3 unspecifiedICD- 10: N18.30041ResolvedContact with and (suspected) exposure to other viral communicable diseasesICD-10: Z20.828 ICD-9: V01.79028951TnxzxyhpPjjkrozuEcbcdgj17/28/2020ActiveDiabetes mellitus Type 6Pdjrdyv09/28/2020ActiveAnemia in chronic kidney diseaseICD-10: D63.1 02/12/2020ResolvedHyperlipidemia, unspecifiedICD-10: E78.Resolved Medications Medication Codes Instructions Start Date Stop Date Status Fill Instructions cephalexin 500 mg capsule RxNorm: 138775 Take 1 Capsule(s) Oral QID 12/17/19 24 024 Inactive cephalexin 500 mg capsule RxNorm: 808320 Take 1 Capsule(s) Oral QID 12/17/19 24 024 Inactive acetaminophen 500 mg tablet RxNorm: 952114 (MAX APAP:4GM/24HR) Take 1 Tablet(s) Oral TID as needed for pain 12/10/19 24 024 Active torsemide 20 mg tablet RxNorm: 724552 Take 1 Tablet(s) Oral QD 10/26/19 24 024 Inactive potassium chloride ER 20 mEq tablet,extended release RxNorm: 19800522 Take 2 Tablet(s) Oral BID 10/26/19 24 025 Active torsemide 20 mg tablet RxNorm: 19821114 Take 1 Tablet(s) Oral QD 10/26/19 24 024 Inactive potassium chloride ER 20 mEq tablet,extended release RxNorm: 232621 Take 2 Tablet(s) Oral BID 10/26/19 24 Inactive Artificial Tears (PF) 0.1 %-0.3 % drops in a dropperette RxNorm: 708070 Apply 1-2 Drop(s) Both eyes BID as needed 09/28/19 24 025 Active erythromycin 5 mg/gram (0.5 %) eye ointment RxNorm: 875455 Apply 1 Application Both eyes QHS every night at bedtime Instill ~1 cm ribbon into affected eye 09/28/19 24 Inactive Artificial Tears (PF) 0.1 %-0.3 % drops in a dropperette RxNorm: 202817 Apply 1-2 Drop(s) Both eyes BID as needed 09/28/19 24 Inactive erythromycin 5 mg/gram (0.5 %) eye ointment RxNorm: 119219 Apply 1 Application Both eyes QHS every night at bedtime Instill ~1 cm ribbon into affected eye 09/28/19 24 024 Inactive acetaminophen 500 mg tablet RxNorm: 006765 (MAX APAP:4GM/24HR) Take 1 Tablet(s) Oral TID as needed for pain 09/24/19 24 Inactive carvedilol 25 mg tablet RxNorm: 731162 Take 1 Tablet(s) Oral QD 09/08/19 24 No Stop Date Active pregabalin 100 mg capsule RxNorm: 915030 Take 1 Capsule(s) Oral QAM every morning 09/07/19 24 024 Inactive rosuvastatin 40 mg tablet RxNorm: 312403 Take 1 Tablet(s) Oral QPM every evening 07/13/19 24 No Stop Date Active ezetimibe 10 mg tablet RxNorm: 677271 Take 1 Tablet(s) Oral QD 07/13/19 24 No Stop Date Active bisacodyl 10 mg rectal suppository RxNorm: 331794 Insert 1 Suppository Rectal QD as needed 07/13/19 24 No Stop Date Active polyethylene glycol 3350 17 gram/dose oral powder RxNorm: 032163 Take 17 Gram(s) Oral BID as needed mix in 4-8ox water 07/13/19 24 No Stop Date Active ketoconazole 2 % shampoo RxNorm: 458084 Apply 1 Application Topical UD as directed 07/13/19 24 No Stop Date Active aripiprazole 15 mg tablet RxNorm: 742291 Take 1/2 Tablet(s) Oral QD 07/13/19 24 No Stop Date Active Ozempic 1 mg/dose (4 mg/3 mL) subcutaneous pen injector RxNorm: 5430648 Inject 1 Milligram(s) Subcutaneous QW once a week 07/13/19 24 No Stop Date Active Guaifenesin AC 10 mg-100 mg/5 mL oral liquid RxNorm: 674634 Take 10 Milliliter(s) Oral Q4H every four hours as needed 07/13/19 24 No Stop Date Active isosorbide mononitrate ER 60 mg tablet,extended release 24 hr RxNorm: 235165 Take 1 Tablet(s) Oral QD 07/13/19 24 No Stop Date Active ammonium lactate 12 % topical cream RxNorm: 033748 Apply 1 Application Topical BID 07/13/19 24 No Stop Date Active hydrocortisone 2.5 % topical cream RxNorm: 753826 Apply 1 Application Topical BID as needed 07/13/19 24 No Stop Date Active rosuvastatin 20 mg sprinkle capsule RxNorm: 5859509 Take 1 Capsule(s) Oral QD 07/13/19 24 No Stop Date Active Vascepa 1 gram capsule RxNorm: 3232993 Take 2 Capsule(s) Oral BID 07/13/19 24 No Stop Date Active venlafaxine ER 75 mg capsule,extended release 24 hr RxNorm: 439655 Take 3 Capsule(s) Oral QD 07/13/19 24 No Stop Date Active Basaglar KwikPen U-100 Insulin 100 unit/mL (3 mL) subcutaneous RxNorm: 1728734 Inject 30U SubQ twice daily 07/07/19 24 025 Active Please dispense one month supply. Basaglar KwikPen U-100 Insulin 100 unit/mL (3 mL) subcutaneous RxNorm: 5900544 Inject 30U SubQ twice daily 07/07/19 24 024 Inactive Please dispense one month supply. pregabalin 150 mg capsule RxNorm: 884090 Take 1 Capsule(s) Oral QHS every night at bedtime 07/05/19 024 Inactive pregabalin 150 mg capsule RxNorm: 685209 Take 1 Capsule(s) Oral QHS every night at bedtime 07/05/19 024 Inactive polyethylene glycol 3350 17 gram/dose oral powder RxNorm: 017905 Take 1 Packet Oral QD as needed (1 packet = 17g) mix with 4-8oz of liquid 06/15/19 24 024 Inactive bisacodyl 10 mg rectal suppository RxNorm: 303782 Insert one suppository per rectum once daily as needed for constipation 06/15/19 24 024 Inactive bisacodyl 10 mg rectal suppository RxNorm: 072331 Insert one suppository per rectum once daily as needed for constipation 06/15/19 024 Inactive pregabalin 100 mg capsule RxNorm: 260658 Take 1 Capsule(s) Oral QAM every morning 04/27/20 024 Inactive Levemir FlexPen 100 unit/mL (3 mL) solution subcutaneous insulin pen RxNorm: 254457 Inject 30 Unit(s) Subcutaneous BID 04/27/20 23 024 Inactive rosuvastatin 40 mg tablet RxNorm: 030550 Take 1 Tablet(s) Oral QPM every evening 04/16/20 024 Inactive D/C rosuvastatin 20mg venlafaxine ER 75 mg capsule,extended release 24 hr RxNorm: 211409 Take 3 Capsule(s) Oral QD 04/14/20 23 023 Inactive pregabalin 100 mg capsule RxNorm: 402945 Take 1 Capsule(s) Oral QAM every morning [...] meter clotrimazole 1 % topical cream RxNorm: 838386 Take apply topically to abdominal folds twice daily for 14 days 03/12/20 024 Inactive Ozempic 1 mg/dose (4 mg/3 mL) subcutaneous pen injector RxNorm: 8828295 Inject 1 Milligram(s) Subcutaneous QW once a week 03/11/20 23 023 Inactive rosuvastatin 20 mg tablet RxNorm: 962007 Take 1 Tablet(s) Oral QD 02/26/20 23 023 Inactive d/c pravastatin 80mg Ozempic 1 mg/dose (4 mg/3 mL) subcutaneous pen injector RxNorm: 2395293 Inject 1 Milligram(s) Subcutaneous QW once a week 02/20/20 23 023 Inactive pregabalin 150 mg capsule RxNorm: 309423 Take 1 Capsule(s) Oral HS at bed time 02/19/20 23 023 Inactive pregabalin 100 mg capsule RxNorm: 515061 Take 1 Capsule(s) Oral QAM every morning 02/18/20 23 023 Inactive venlafaxine ER 75 mg capsule,extended release 24 hr RxNorm: 592821 Take 3 Capsule(s) Oral QD 02/04/20 23 023 Inactive FreeStyle Chema 2 Sensor kit RxNorm: use as directed 02/04/20 23 023 Inactive FreeStyle Chema 2 Sensor kit RxNorm: use as directed 02/04/20 23 024 Inactive fluconazole 150 mg tablet RxNorm: 937384 Take 1 Tablet(s) Oral on day 3 and on day 6 02/03/20 23 024 Active chlorthalidone 25 mg tablet RxNorm: 905652 Take 1 Tablet(s) Oral QAM every morning 02/03/20 23 No Stop Date Active venlafaxine ER 150 mg capsule,extended release 24 hr RxNorm: 304245 Take 1 Capsule(s) Oral QD 02/03/20 23 023 Inactive acetaminophen 500 mg tablet RxNorm: 216949 1 TABLET ORALLY 3 TIMES DAILY (MAX APAP:4GM/24HR) 12/15/19 023 Inactive clotrimazole 1 % topical cream RxNorm: 266526 apply 1g topically to top of feet and in between toes BID 12/09/19 023 Inactive potassium chloride ER 20 mEq tablet,extended release RxNorm: 916002 Take 1 Tablet(s) Oral BID 12/09/19 024 Inactive d/c 20mEq once daily (sent from hospital) nystatin 100,000 unit/gram topical powder RxNorm: 527130 APPLY TO AFFECTED AREAS TOPICALLY 2 TIMES DAILY 11/21/19 024 Inactive Nystop 100,000 unit/gram topical powder RxNorm: 588439 Apply to abd folds, under breasts and L side of groin Topical BID x 14 days, then BID PRN 11/20/19 023 Inactive dx: yeast dermatitis [place] Ultra Strength 4 %-30 %-10 % topical cream RxNorm: 959416 Apply 1 Gram(s) Topical QID PRN to feet and legs for neuropathic pain 11/11/19 024 Inactive clotrimazole 1 % topical cream RxNorm: 171236 Apply 1/2 Gram(s) Topical BID Apply to affected areas of groin, periarea, and abdominal topically 2 times daily 11/10/19 023 Inactive hydrocortisone 2.5 % topical cream RxNorm: 728986 Apply 1/2 Gram(s) Topical BID as needed 11/10/19 024 Inactive Humulin R U-500 (Concentrated) Insulin 500 unit/mL subcutaneous soln RxNorm: 427022 Inject 100 Unit(s) Subcutaneous TID 10/07/19 024 Inactive Levemir FlexPen 100 unit/mL (3 mL) solution subcutaneous insulin pen RxNorm: 271132 Inject 30 Unit(s) Subcutaneous BID 10/07/19 023 Inactive Ozempic 0.25 mg or 0.5 mg (2 mg/3 mL) subcutaneous pen injector RxNorm: 2277751 Inject 1/2 Milligram(s) Subcutaneous QW once a week 10/07/19 024 Inactive aripiprazole 15 mg tablet RxNorm: 962648 /2 TAB (7.5MG) ORALLY DAILY (DX:MAJOR DEPRESSIVE DISORDER) 09/23/19 23 023 Inactive Lancets,Thin 28 gauge RxNorm: Use 1 as directed QID 09/15/19 23 024 Inactive Accu-Chek Guide test strips RxNorm: Use 1 Test Strip QID 09/15/19 23 023 Inactive ok to substitute with any covered alternative test strip torsemide 20 mg tablet RxNorm: 657132 Take 1 Tablet(s) Oral BID 09/09/19 23 024 Inactive d/c once daily dosing carvedilol 25 mg tablet RxNorm: 417416 Take 1 Tablet(s) Oral QD 08/25/19 23 024 Inactive pregabalin 150 mg capsule RxNorm: 082506 1 Capsule(s) Oral HS at bed time 08/18/19 23 023 Inactive pregabalin 100 mg capsule RxNorm: 514205 1 Capsule(s) Oral QAM every morning 08/18/19 23 023 Inactive carvedilol 25 mg tablet RxNorm: 540285 1 Tablet(s) Oral QD 07/28/19 23 023 Inactive lisinopril 20 mg tablet RxNorm: 086183 Give 1 Tablet(s) Oral QD 07/28/19 23 023 Inactive Lyrica 150 mg capsule RxNorm: 307765 Take 1 Capsule(s) Oral QHS every night at bedtime 07/19/19 23 023 Inactive d/c 100mg dose Diflucan 150 mg tablet RxNorm: 176525 Take 1 Tablet(s) Oral QD repeat on day 3 and 6 07/19/19 23 023 Inactive pregabalin 100 mg capsule RxNorm: 788782 Take 1 Capsule(s) Oral QAM every morning 07/19/19 23 023 Inactive gatifloxacin 0.5 % eye drops RxNorm: 517410 Instill 1 Drop(s) as directed TID Instill 1 drop in to affected eye(s) starting 1 day prior to surgery and continue until gone (do not exceed 4 weeks). 07/13/19 23 023 Inactive carvedilol 25 mg tablet RxNorm: 301563 2 Tablet(s) Oral BID 07/13/19 23 023 Inactive Humulin R Regular U-100 Insulin 100 unit/mL injection solution RxNorm: 438705 85 Unit(s) Injection TID 07/13/19 23 023 Inactive ketorolac 0.5 % eye drops RxNorm: 185058 Instill 1 Drop(s) as directed QID Instill 1 drop into affected eye(s) 4 times daily starting 1 day prior to surgery and continue until gone (do not exceed 4 weeks). 07/13/19 23 023 Inactive Diflucan 150 mg tablet RxNorm: 014130 Take 1 Tablet(s) Oral QD repeat on day 3 and 6 06/30/19 023 Inactive Accu-Chek Guide test strips RxNorm: Use 1 Test Strip QID Use 1 test strip to monitor blood glucose 4 times daily and as needed. Dx:E11.42. 06/23/19 023 Inactive ok to substitute with any covered alternative test strip dextromethorphan-gu aifenesin 10 mg-100 mg/5 mL oral liquid RxNorm: 380237 Take 10 Milliliter(s) Oral every 4 hours as needed for cough 06/19/19 023 Inactive dextromethorphan-gu aifenesin 10 mg-100 mg/5 mL oral liquid RxNorm: 569429 Take 10 Milliliter(s) Oral every 4 hours as needed for cough 06/19/19 023 Inactive Lyrica 150 mg capsule RxNorm: 777302 Take 1 Capsule(s) Oral QHS every night at bedtime 06/18/19 23 023 Inactive d/c 100mg dose aripiprazole 15 mg tablet RxNorm: 006020 1/2 TAB (7.5MG) ORALLY DAILY (DX:MAJOR DEPRESSIVE DISORDER) 06/05/19 23 023 Inactive pregabalin 100 mg capsule RxNorm: 239560 1 Capsule(s) Oral QAM every morning 06/02/19 23 023 Inactive Banophen 50 mg capsule RxNorm: 0616300 Take 1 Capsule(s) Oral Q6H every 6 hours as needed 05/19/19 No Stop Date Active Novolog Flexpen U-100 Insulin aspart 100 unit/mL (3 mL) subcutaneous RxNorm: 1564432 Inject 10 Unit(s) Subcutaneous QHS every night at bedtime with nighttime snack 04/08/20 022 Inactive Novolog Flexpen U-100 Insulin aspart 100 unit/mL (3 mL) subcutaneous RxNorm: 5747659 Inject 42 Unit(s) Subcutaneous TID in addition to sliding scale 04/08/20 022 Inactive d/c 36u albuterol sulfate HFA 90 mcg/actuation aerosol inhaler RxNorm: 5659298 Take 2 Puff(s) Inhalation Q4H every four hours as needed as needed for SOB, cough, or wheezing 04/07/20 030 Active Banophen 50 mg capsule RxNorm: 8741230 Take 1 Capsule(s) Oral Q6H every 6 hours as needed 04/06/20 023 Inactive diphenhydramine 50 mg tablet RxNorm: 1174434 Take 1 Tablet(s) Oral Q6H every 6 hours as needed 04/06/20 022 Inactive diphenhydramine 50 mg tablet RxNorm: 1140351 1 Tablet(s) Oral Q6H every 6 hours as needed 04/06/20 022 Inactive Abilify 15 mg tablet RxNorm: 713489 1/2 Tablet(s) Oral QD 03/10/20 023 Inactive Shingrix (PF) 50 mcg/0.5 mL intramuscular suspension, kit RxNorm: 2738315 Administer 1/2 Milliliter(s) Intramuscular QD one time shingrix step 2 ( step 1 given 11/04/21) WITH needle - Nursing please administer upon arrival and once administered post a bridge message with date of administration, paper bag maker, expiration date, and lot# so we can update [facility] 02/18/20 022 Inactive dispense with needle Shingrix (PF) 50 mcg/0.5 mL intramuscular suspension, kit RxNorm: 9273560 Administer 1/2 Milliliter(s) Intramuscular QD one time shingrix step 2 ( step 1 given 11/04/21) WITH needle - Nursing please administer upon arrival and once administered post a bridge message with date of administration, paper bag maker, expiration date, and lot# so we can update [facility] 02/18/20 22 Inactive dispense with needle polyethylene glycol 3350 17 gram/dose oral powder RxNorm: 594387 Take 17=1 capful Gram(s) Oral QD mix with 4-8oz of liquid 01/08/20 22 023 Inactive take this in addition to BID prn order Lyrica 100 mg capsule RxNorm: 451196 Take 1 Capsule(s) Oral QAM every morning 01/08/20 22 022 Inactive d/c 50mg dose acetaminophen 500 mg tablet RxNorm: 921698 Take 1 Tablet(s) Oral TID 01/08/20 22 022 Inactive d/c PRN order Lyrica 150 mg capsule RxNorm: 365578 Take 1 Capsule(s) Oral QHS every night at bedtime 01/08/20 22 023 Inactive d/c 100mg dose Abilify 5 mg tablet RxNorm: 050731 Take 1 Tablet(s) Oral QD take 1 tab po QD #30 refill 5 dx: MDD 12/12/19 22 022 Inactive Abilify 5 mg tablet RxNorm: 211333 Take 1 Tablet(s) Oral QD take 1 tab po QD #30 refill 5 dx: MDD 12/12/19 22 022 Inactive Novolog Flexpen U-100 Insulin aspart 100 unit/mL (3 mL) subcutaneous RxNorm: 1859924 Inject 42 Unit(s) Subcutaneous TID in addition to sliding scale 12/10/19 22 022 Inactive d/c 36u chlorthalidone 25 mg tablet RxNorm: 531762 Take 1 Tablet(s) Oral QAM every morning 12/10/19 22 023 Inactive pregabalin 50 mg capsule RxNorm: 397685 Take 1 Capsule(s) Oral QAM every morning 11/12/19 22 022 Inactive tetanus-diphtheria toxoids-Td 2 Lf unit-2 Lf unit/0.5 mL IM suspension RxNorm: 139 Take 0.5 Miscellaneous Intramuscular 11/12/19 22 022 Inactive need tdap - nursing to administer upon arrival pregabalin 50 mg capsule RxNorm: 257132 Take 1 Capsule(s) Oral QAM every morning 10/16/19 22 022 Inactive pregabalin 50 mg capsule RxNorm: 611806 Take 1 Capsule(s) Oral QAM every morning 10/16/19 22 022 Inactive pregabalin 50 mg capsule RxNorm: 172325 1 Capsule(s) Oral QAM every morning 10/15/19 22 022 Inactive Shingrix (PF) 50 mcg/0.5 mL intramuscular suspension, kit RxNorm: 8130725 Administer 1/2 Milliliter(s) Intramuscular one time Nursing please administer upon arrival and once administered post a bridge message with date of administration, paper bag maker, expiration date, and lot# so we can update [facility]. 10/09/19 22 022 Inactive shingrix step 1 Shingrix (PF) 50 mcg/0.5 mL intramuscular suspension, kit RxNorm: 6460965 Administer 1/2 Milliliter(s) Intramuscular one time Nursing please administer upon arrival and once administered post a bridge message with date of administration, paper bag maker, expiration date, and lot# so we can update [facility]. 10/09/19 22 022 Inactive shingrix step 1 cholecalciferol (vitamin D3) 1,250 mcg (50,000 unit) capsule RxNorm: 950897 Take 1 Capsule(s) Oral QW once a [...] aspart 100 unit/mL (3 mL) subcutaneous RxNorm: 6954456 Inject 10 Unit(s) Subcutaneous QHS every night at bedtime with nighttime snack 10/08/19 22 Inactive Shingrix (PF) 50 mcg/0.5 mL intramuscular suspension, kit RxNorm: 9429920 ADMINISTER 2-DOSE SERIES PER CDC GUIDELINES 10/08/19 22 Active Shingrix (PF) 50 mcg/0.5 mL intramuscular suspension, kit RxNorm: 5497630 ADMINISTER 2-DOSE SERIES PER CDC GUIDELINES 10/08/19 22 Inactive Novolog Flexpen U-100 Insulin aspart 100 unit/mL (3 mL) subcutaneous RxNorm: 1960801 Inject 36 Unit(s) Subcutaneous TID in addition to sliding scale 10/08/19 Inactive Novofine Autocover 30 gauge x 1/3 needle RxNorm: Use 1 Miscellaneous UD as directed Use 1 needle as directed to administer insulin 5 times a day Dx:E11.42. 10/03/19 Inactive ok to substitute with any covered alternative pen needle benzoyl peroxide 10 % topical cleanser RxNorm: 692330 Apply 1 Application Topical QD apply to face, wash rinse and dry once daily (may change to QOD if drying) 08/19/19 022 Inactive (%covered by insurance) #60ml refill 11 dx: acne benzoyl peroxide 10 % topical cleanser RxNorm: 853314 Apply 1 Application Topical QD apply to face, wash rinse and dry once daily (may change to QOD if drying) 08/19/19 22 022 Inactive (%covered by insurance) #60ml refill 11 dx: acne benzoyl peroxide 10 % topical cleanser RxNorm: 879700 Apply 1 Application Topical QD apply to face, wash rinse and dry once daily (may change to QOD if drying) 08/19/19 22 022 Inactive (%covered by insurance) #60ml refill 11 dx: acne Lyrica 50 mg capsule RxNorm: 524060 Take 1 Capsule(s) Oral QAM every morning Take 1 capsule by mouth once daily 08/19/19 22 022 Inactive benzoyl peroxide 10 % topical cleanser RxNorm: 839955 Apply 1 Application Topical QD apply to face, wash rinse and dry once daily (may change to QOD if drying) 08/19/19 22 Inactive (%covered by insurance) #60ml refill 11 dx: acne Lyrica 100 mg capsule RxNorm: 877380 Take 1 Capsule(s) Oral QHS every night at bedtime Take 1 capsule by mouth once daily at bedtime 08/19/19 22 Inactive Lyrica 100 mg capsule RxNorm: 886010 Take 1 Capsule(s) Oral QHS every night at bedtime Take 1 capsule by mouth once daily at bedtime 08/16/19 22 Inactive Lyrica 50 mg capsule RxNorm: 176133 Take 1 Capsule(s) Oral QAM every morning Take 1 capsule by mouth once daily 08/16/19 22 Inactive Levemir FlexTouch U-100 Insulin 100 unit/mL (3 mL) subcutaneous pen RxNorm: 334021 Inject 86 Unit(s) Subcutaneous BID 08/05/19 22 022 Inactive d/c 83units BID Lyrica 100 mg capsule RxNorm: 384698 Take 1 Capsule(s) Oral QHS every night at bedtime Take 1 capsule by mouth once daily at bedtime 07/14/19 22 022 Inactive Lyrica 50 mg capsule RxNorm: 215280 Take 1 Capsule(s) Oral QAM every morning Take 1 capsule by mouth once daily 07/14/19 22 022 Inactive Levemir FlexTouch U-100 Insulin 100 unit/mL (3 mL) subcutaneous pen RxNorm: 567799 Inject 83 Unit(s) Subcutaneous BID 07/08/19 22 [...] test strip hydralazine 50 mg tablet RxNorm: 465569 Take 1 Tablet(s) Oral QID 05/05/20 21 022 Inactive venlafaxine ER 225 mg tablet,extended release 24 hr RxNorm: 635545 Take 1 Tablet(s) Oral QD 05/05/20 21 021 Inactive venlafaxine ER 225 mg tablet,extended release 24 hr RxNorm: 646302 Take 1 Tablet(s) Oral QD 05/05/20 21 022 Inactive isosorbide mononitrate ER 30 mg tablet,extended release 24 hr RxNorm: 480071 Take 1 Tablet(s) Oral QD 05/05/20 21 024 Inactive hydralazine 50 mg tablet RxNorm: 725943 Take 1 Tablet(s) Oral QID 05/05/20 21 021 Inactive aspirin 81 mg tablet,delayed release RxNorm: 349220 Take 1 Tablet(s) Oral QD 03/31/20 022 Inactive Vitamin D2 1,250 mcg (50,000 unit) capsule RxNorm: 4056743 Take 1 Capsule(s) Oral QW once a week x 12 weeks 03/31/20 022 Inactive Vitamin D2 1,250 mcg (50,000 unit) capsule RxNorm: 3505166 Take 1 Capsule(s) Oral QW once a week 03/31/20 021 Inactive Zetia 10 mg tablet RxNorm: 925734 Take 1 Tablet(s) Oral QD 03/31/20 024 Inactive Zetia 10 mg tablet RxNorm: 642241 Take 1 Tablet(s) Oral QD 03/31/20 021 Inactive hydralazine 25 mg tablet RxNorm: 636030 Take 1 Tablet(s) Oral QID 03/31/20 021 Inactive hydralazine 25 mg tablet RxNorm: 314552 Take 1 Tablet(s) Oral QID 03/31/20 021 Inactive hydralazine 10 mg tablet RxNorm: 003025 Take 1 Tablet(s) Oral QID 03/03/20 021 Inactive cephalexin 500 mg tablet RxNorm: 948438 Take 1 Tablet(s) Oral QID 02/27/20 021 Inactive cephalexin 500 mg tablet RxNorm: 713773 Take 1 Tablet(s) Oral QID 02/27/20 021 Inactive lisinopril 40 mg tablet RxNorm: 689787 Take 1 Tablet(s) Oral QD 02/11/20 023 Inactive Eliquis 5 mg tablet RxNorm: 9269920 Take 1 Tablet(s) Oral BID 01/05/20 21 022 Inactive Eliquis 5 mg tablet RxNorm: 1280151 Take 2 Tablet(s) Oral QD 01/01/20 21 021 Inactive Lyrica 50 mg capsule RxNorm: 292136 Take 1 Capsule(s) Oral QAM every morning 12/24/19 21 021 Inactive Lyrica 100 mg capsule RxNorm: 467910 Take 1 Capsule(s) Oral QHS every night at bedtime 12/24/19 21 021 Inactive clotrimazole 1 % topical cream RxNorm: 319001 Apply to right foot and toes Topical BID 12/04/19 21 023 Inactive metoprolol succinate ER 200 mg tablet,extended release 24 hr RxNorm: 578708 Take 1 Tablet(s) Oral QD 12/04/19 21 023 Inactive ciprofloxacin 500 mg tablet RxNorm: 714677 Take 1 Tablet(s) Oral QD 11/30/19 21 021 Inactive DX ofloxacin otic drops Accu-Chek Guide test strips RxNorm: USE 1 TO CHECK GLUCOSE 4 TIMES DAILY AND NEEDED 11/15/19 21 023 Inactive Blood Glucose Test strips RxNorm: Use 1 Test Strip QID at PRN 11/05/19 21 023 Inactive E11.42 lisinopril 30 mg tablet RxNorm: 780824 Take 1 Tablet(s) Oral QD 10/30/19 21 021 Inactive lisinopril 20 mg tablet RxNorm: 143532 Take 1 Tablet(s) Oral QD 10/23/19 21 021 Inactive lisinopril 20 mg tablet RxNorm: 368662 Take 1 Tablet(s) Oral QD 10/23/19 21 021 Inactive lisinopril 10 mg tablet RxNorm: 459076 Take 1 Tablet(s) Oral QD 10/02/19 21 021 Inactive icosapent ethyl 1 gram capsule RxNorm: 5816589 Take 2 Capsule(s) (2 gm) Oral BID with meals 09/12/19 024 Inactive Okay to dispense one 2gm tab if you have that available. icosapent ethyl 1 gram capsule RxNorm: 6240001 Take 2 Capsule(s) Oral BID 09/12/19 21 021 Inactive Okay to dispense one 2gm tab if you have that available. amlodipine 10 mg tablet RxNorm: 943865 Take 1 Tablet(s) Oral QD 09/04/19 21 022 Inactive aspirin 81 mg tablet,delayed release RxNorm: 939672 Take 1 Tablet(s) Oral QD 09/04/19 21 Inactive Levemir FlexTouch U-100 Insulin 100 unit/mL (3 mL) subcutaneous pen RxNorm: 363903 Inject 150 Unit(s) Subcutaneous BID 09/04/19 21 022 Inactive venlafaxine ER 150 mg tablet,extended release 24 hr RxNorm: 554507 Take 1 Tablet(s) Oral QD 09/04/19 21 Inactive clotrimazole-betame thasone 1 %-0.05 % topical cream RxNorm: 993319 Apply to rash on red area on left abdomen/chest Topical BID 08/10/19 21 Inactive amlodipine 5 mg tablet RxNorm: 848033 Take 1 Tablet(s) Oral QD 07/31/19 21 Inactive cephalexin 500 mg tablet RxNorm: 802219 Take 1 Tablet(s) Oral BID BID - Twice Daily 07/31/19 21 Inactive Start 08/01/20 pantoprazole 40 mg tablet,delayed release RxNorm: 466722 Take 1 Tablet(s) Oral QAM every morning 07/08/19 022 Inactive senna 8.6 mg tablet RxNorm: 318823 Take 1 Tablet(s) Oral QD 07/08/19 022 Inactive carbamazepine 200 mg tablet RxNorm: 911475 Take 1 Tablet(s) Oral BID 07/08/19 022 Inactive clopidogrel 75 mg tablet RxNorm: 372310 Take 1 Tablet(s) Oral QD 07/08/19 021 Inactive Blood Glucose Test strips RxNorm: Use 1 Test Strip QID at PRN 07/08/19 21 Inactive E11.42 Novolog Flexpen U-100 Insulin aspart 100 unit/mL (3 mL) subcutaneous RxNorm: 5341579 Administer per sliding scale Milliliter(s) Subcutaneous TID 151-200: 10 u; 201-250: 20 u; 251-300: 30 u; 301-350: 40 u; 351-400: 50 u. 07/08/19 21 022 Inactive lisinopril 5 mg tablet RxNorm: 019071 Take 1 Tablet(s) Oral QD 07/08/19 021 Inactive Novolog Flexpen U-100 Insulin aspart 100 unit/mL (3 mL) subcutaneous RxNorm: 3720730 Inject 85 Unit(s) Subcutaneous TID 07/08/19 022 Inactive pravastatin 80 mg tablet RxNorm: 605880 Take 1 Tablet(s) Oral QHS every night at bedtime 07/08/19 023 Inactive clotrimazole 1 % topical cream RxNorm: 792785 Apply to bilateral groin areas Topical BID 07/08/19 022 Inactive metoprolol succinate ER 200 mg tablet,extended release 24 hr RxNorm: 144009 Take 1 Tablet(s) Oral QD 07/08/19 21 021 Inactive Vitamin D3 25 mcg (1,000 unit) tablet RxNorm: 425493 Take 1 Tablet(s) Oral QD 07/08/19 021 Inactive isosorbide dinitrate 30 mg tablet RxNorm: 134162 Take 1 Tablet(s) Oral QD 07/08/19 021 Inactive Levemir FlexTouch U-100 Insulin 100 unit/mL (3 mL) subcutaneous pen RxNorm: 113434 Inject 140 Unit(s) Subcutaneous BID 07/08/19 21 021 Inactive torsemide 20 mg tablet RxNorm: 508769 Take 1 Tablet(s) Oral QD 07/08/19 023 Inactive venlafaxine 75 mg tablet RxNorm: 159627 Take 1 Tablet(s) Oral QD 07/08/19 021 Inactive acetaminophen 500 mg tablet RxNorm: 824990 Take 1 Tablet(s) Oral TID as needed for headache 06/18/19 21 021 Inactive acetaminophen 500 mg tablet RxNorm: 534359 Take 1 Tablet(s) Oral TID as needed for headache 06/18/19 21 021 Inactive Lyrica 100 mg capsule RxNorm: 535938 Take 1 Capsule(s) Oral QHS every night at bedtime 06/11/19 21 021 Inactive Lyrica 50 mg capsule RxNorm: 358836 Take 1 Capsule(s) Oral QAM every morning 06/10/19 21 021 Inactive hydrocortisone 2.5 % topical cream RxNorm: 171299 Apply to bilateral groin creases Topical BID 05/15/20 20 021 Inactive clotrimazole 1 % topical cream RxNorm: 515496 Apply to bilateral groin areas Topical BID 05/15/20 20 021 Inactive Lyrica 50 mg capsule RxNorm: 510264 Take 1 Capsule(s) Oral QAM every morning 05/14/20 20 020 Inactive Lyrica 100 mg capsule RxNorm: 917695 Take 1 Capsule(s) Oral QHS every night [...] Inactive Nystop 100,000 unit/gram topical powder RxNorm: 633684 Apply to abd folds, under breasts and L side of groin Topical BID x 14 days, then BID PRN 04/08/20 20 020 Inactive dx: yeast dermatitis Lyrica 100 mg capsule RxNorm: 279809 Take 1 Capsule(s) Oral QHS every night at bedtime 03/13/20 20 020 Inactive Lyrica 50 mg capsule RxNorm: 268272 Take 1 Capsule(s) Oral QAM every morning 03/13/20 20 020 Inactive ketoconazole 2 % shampoo RxNorm: 875314 Apply Topical two times a week with showers 03/11/20 20 Inactive cholecalciferol (vitamin D3) 50 mcg (2,000 unit) tablet RxNorm: 507884 Take 1 Tablet(s) Oral QD 03/11/20 20 021 Inactive Zetia 10 mg tablet RxNorm: 712960 Take 1 Tablet(s) Oral QD 03/07/20 20 021 Inactive Zetia 10 mg tablet RxNorm: 443536 Take 1 Tablet(s) Oral QD 03/07/20 20 Inactive Lyrica 50 mg capsule RxNorm: 753787 Take 1 Capsule(s) Oral QAM every morning 02/15/20 20 Inactive Lyrica 100 mg capsule RxNorm: 233516 Take 1 Capsule(s) Oral QHS every night at bedtime 02/15/20 20 Inactive Lyrica 100 mg capsule RxNorm: 130769 Take 1 Capsule(s) Oral QHS every night at bedtime 02/15/20 20 Inactive Lyrica 50 mg capsule RxNorm: 382948 Take 1 Capsule(s) Oral QAM every morning 02/15/20 20 Inactive metoprolol succinate ER 200 mg tablet,extended release 24 hr RxNorm: 156885 Take 1 Tablet(s) Oral QD 08/11 Activeloperamide 2 mg capsuleRxNorm: 702274Wovu 1 Capsule(s) Oral QID as needed 06/12/2021ctivehydralazine 50 mg tabletRxNorm: 255048Thtl 1 Tablet(s) Oral QID 08/11/2022ctivevenlafaxine ER 75 mg capsule,extended release 24 hrRxNorm: 260700Izpb 3 Capsule(s) Oral QD/Inactivepolyethylene glycol 3350 17 gram/dose oral powderRxNorm: 906790Dodw 17=1 capful Gram(s) Oral BID as needed mix with 4-8oz of pickya80/Inactiveicosapent ethyl 1 gram capsuleRxNorm: 4753058Xmxl 2 Capsule(s) (2 gm) Oral BID with meals /InactiveOkay to dispense one 2gm tab if you have that available.Levemir FlexTouch U-100 Insulin 100 unit/mL (3 mL) subcutaneous pen RxNorm: 977955Xrmfcl 80 Unit(s) Subcutaneous BID07/14//Inactive Novolog Flexpen U-100 Insulin aspart 100 unit/mL (3 mL) subcutaneousRxNorm: 8116783Sonfaz 30 Unit(s) Subcutaneous TID with meals/Inactive Medication Administered No Medication Administered data Procedures Procedure Codes Date DEBRIDE NAIL 6 OR MORE CPT-4: 81676 SYS BP LESS 140 CPT-4: G8752 01/11/2024 CUI BP LESS 90 CPT-4: G8754 01/11/2024 Vital Signs Date Vital 01/11/2024 Blood Pressure 1: 11 Code: 8480-6 Heart Rate 1: 62 bpm Code: 8867-4 Temperature: 36.4 (C) / 97.6 (F) Reason For Visit No Reason For Visit data Encounters Encounter Performer Location Location Address Codes Cristiano e ([id number]) Home or Residence Vi sit Est Pt - Moderate Level, 40 mins Diagnosis: BMI 60.0-69.9, adult[ICD10: Z68.44] Diagnosis: Lower extremity edema[ICD10: R60.0] Diagnosis: Onychogryposis[ICD10: L60.2] Diagnosis: PVD (peripheral vascular disease)[ICD10: I73.9] Diagnosis: Seizure disorder[ICD10: G40.909] Diagnosis: Pressure ulcer of left calf, unstageable[ICD10: L89.890] Diagnosis: Low back pain[ICD10: M54.50] Diagnosis: Physical deconditioning[ICD10: R53.81][place] on [id number] [place]HAVI [place] [address]MOZ-3: [id number] Plan of Care Planned Activity Notes Codes Status Date Appointment: Sandra Clark WPtel: [address] [facility] [address] [id number] [facility] Up12/09/2022ppointment: Casper Tapan WPtel: [address] [facility] [address] [id number] USTCM10/26/2022Referral: [facility] WPtel: [address] [facility] [address] [id number] USReferralRecords Yuybvsri63/08/2023ppointment: Tapan Shirley WPtel: [address] [facility] [address] [id number] USF/U008/11/2022ppointment: Tapan Shirley WPtel: [address] [facility] [address] [id number] USF/U007/14/2022ppointment: Tapan Shirley WPtel: [address] [facility] [address] [id number] USF/U02Referral: [facility] WPtel: [address] [facility] [address] [id number] PSBcyvmdbnVuplyqnkn55/12/2022Referral: General CardiologyReferralCompleted 1Referral: General PsychologistReferralClosedReferral: General PsychiatristReferralPatient/Family [...] [facility] to have closer nursing attention. Sister Jyotsna involved in his care cell# [phone] Guardian: Giulia (tapan met in person 09/01/21), [...] note from 11.08.2023 at [facility] (follow up 6 months)Colon & Rectal Surgery visit scheduled for 03/08/24 with Matilde Pérez PA-C. 01/05/2024 Pressure ulcer of left calf, unstageable Complicated by PVD, DM, obesity.?? SKIN: Chronic??hemosiderin staining of bilateral lower extremities. No open areas to BLE although wounds to left lower extremity: seven wounds in varying sizes. Six the size of a pencil eraser and one larger one in the middle 1 cm in length by .5 cm in width. All with black scab like appearance. Noopen areas, no drainage. Unable to stage wounds as they are covered.?? Current order: Daily and PRN: Keep skin on funes clean with warm water and gentle soap. Dry thoroughly. Apply bacitracin or triple antibiotic cream to the affected areas. Cover with non-adhering dressing until fully healed. Monitor for increase in redness, warmth, pain, and fever as these might be signs of infection. Would benefit from in home half-way as per Leonid staff are not tending to his leg.?? BMI 60.0-69.9, adult Leonid didn't know his weight today.?? We discussed healthy diet options. Difficult as staff prepare and serve food. Encouraged him to askfor protein, veggies, fruits, water.?? PT referral will be placed today for low back pain, deconditioning but hopefully will also help increase his physical activity as well.?? PVD (peripheral vascular disease) PVD complicated by severe obesity, CAD, DM.?? Continue Torsemide and Potassium chloride.?? Does have wounds on left lower calf which will require further management as they are not improvingand per Leonid staff have not been preforming any wound cares.?? Will place order for half-way today. Leonid is high risk for impaired healing and infection due to his diabetes.?? Lower extremity edema Non pitting edema present.?? Compression stockings daily.?? Continue Torsemide 20 mg QD and Potassium Chloride 20 mEq BID.?? Does have wounds present on left lower extremity. Will be referring to half-way for further support.?? Seizure disorder No recent seizure activity reported by staff or Peter.?? Continue Carbamazepine 200 mg BID.?? Does not follow with neurology.?? Staff to monitor for seizure activity and update PCP.?? Physical deconditioning Seen in ER for low back pain 12.27.2023. PT recommended although ER provider didn't order.?? PCP will order. Leonid would greatly benefit from PT to work on strength and physical activity/mobility. Currently his activity consists of using his walker to go to the bathroom and back to his recliner.?? Further strengthening and activity would benefit him in multiple ways: pain, balance, weight loss, diabetes.?? Onychogryposis 7?? toenails debrided today.?? Tolerated well.?? No signs of infection or ingrown toenails today.?? Low back pain Was seen in the ER on 12.27.2023 for low back pain. Prescribed flexeril and tylenol. Leonid states henever received the flexeril. ER provider recommended PT but did not place order.?? Denies low back pain today.?? PCP will place PT order.?? PCP will not order flexeril at this time; does not appear indicated with exam today..01/11/2024
--- OUTSIDE RECORDS SUMMARY | 2024-02-09 18:00 | XMS_ITS | CCD ---
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 Laundry Agent Name Role Phone Arpit MCKINLEY-CHarrison Primary Care Provider Leona vailable Arpit WAREHOUSING TECHNICIAN-C, [facility] U navailable Summary Purpose DataExchange Insurance Providers Payer name Policy type / Coverage type Covered democrat ID Effective Begin Date Effective End Date [place] [id number] Unknown Unknown [place] [id number] Unknown Unknown Family history Sister Brittany Suggs Diagnosis Age At Onset No Family Disease Entered N/A Runs in the family Diagnosis Age At Onset No Known Diseases N/A Sister Blanka Mcduffie Diagnosis Age At Onset No Family Disease Entered N/A Social History Social History Element Codes Description Effec tive Dates Tobacco history SNOMED CT: 372352580 Never smoker 01/16 Sexually Active? Unknown No 02/08/2024 Children Unknown No Children 02/08/2024 Patient Health Status Self Assessment Unknown Fair 02/08/2024 Oral health Unknown Has not seen Den tist in the last 12 months 02/08/2024 Do you worry about access to food? Unknown No 02/08/2024 Seatbelt safety Unknown Wears seatbelt 02/08/2024 Illicit Drug History Unknown Has never u sed illegal drugs 02/08/2024 Do you feel safe in your home? Unknown Yes 02/08/2024 Marital status Unknown Single 10/07/2021 Living arrangements Unknown Prison 09/03/[address]: 351584829 No Alcohol Consum ption 09/02/2020 Allergies, Adverse Reactions, Alerts Substance Reaction Codes Entered Date Inactivated Date Status * NO KNOWN FOOD ALLERGIES Cnyhlbw6807/13/2023No Inactive DateActiveLISINOPRILRxNorm: 4203535No Inactive DateActiveMetformin FXbGmlcotx53/28/2020No Inactive DateActive* NO KNOWN ENVIRONMENTAL CXIGPREFOQikolxb08/27/2024No Inactive DateActive Problems Condition Codes Effective Dates Condition St atus Advanced care planning - to document end of life discussions Unknown 02/08/2024 Active Advance care planning ICD-10: Z71.89 ICD-9: V65.4909/ctiveAmputated toe of right footICD-10: S98.131A ICD-9: 895.009/ctiveAnnual physical examICD-10: Z00.00 ICD-9: V70.009/ctiveBMI 60.0-69.9, adultICD-10: Z68.44 ICD-9: V85.4409/ctiveCandidal intertrigoICD-10: B37.2 ICD-9: 112.309/ctiveConstipation by delayed colonic transitICD-10: K59.01 ICD-9: 564.0109/ctiveDiabetic neuropathy associated with type 2 diabetes mellitusICD-10: E11.40 ICD-9: 250.6009/ctiveHistory of anemia due to CKDICD-10: N18.9 ICD-9: 585.909/ctiveHx of deep venous thrombosisICD-10: Z86.718 ICD-9: V12.5109/ctiveHypercoagulable stateICD-10: D68.59 ICD-9: 289.8109/ctiveHyperlipidemia associated with type 2 diabetes mellitusICD-10: E11.69 ICD-9: 250.8009/ctiveHypertensive heart disease without heart failure ICD-10: I11.9 ICD-9: 402.9009/ctiveHypokalemiaICD-10: E87.6 ICD-9: 276.809/ctiveLearning disabilityICD-10: F81.9 ICD-9: 315.209ctiveLow back painICD-10: M54.50 ICD-9: 724.209/ctiveLower extremity edemaICD-10: R60.0 ICD-9: 782.309/ctiveMajor depression, recurrentICD-10: F33.9 ICD-9: 296.3009/ctiveOnychogryposisICD-10: L60.2 ICD-9: 703.809/ctiveParaparesis of both lower limbsICD-10: G82.20 ICD-9: 344.109/ctivePhysical deconditioningICD-10: R53.81 ICD-9: 799.309/ctivePressure ulcer of left calf, unstageableICD-10: L89.890 ICD-9: 707.0909/ctivePVD (peripheral vascular disease)ICD-10: I73.9 ICD-9: 443.909/ctiveReducible umbilical herniaICD-10: K42.9 ICD-9: 553.109/ctiveSeizure disorderICD-10: G40.909 ICD-9: 345.9009/ctiveStage 2 chronic 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ICD-10: E11.22 ICD-9: 250.4009/ctiveType 2 diabetes mellitus with diabetic polyneuropathy, with long-term current use of insulinICD-10: E11.42 ICD-9: 250.6009/ctiveVitamin D deficiencyICD-10: E55.9 ICD-9: 268.909/ctiveCallus of heelICD-10: L84 ICD-9: 11130/esolvedGout due to renal impairmentICD-10: M10.30 ICD-9: 274.1005/esolvedHyperhidrosis of palmsICD-10: L74.512 ICD-9: 705.2105esolvedHyperlipidemia, unspecifiedICD-10: E78.5 ICD-9: 272.405/esolvedOther group home (current) drug therapyICD-10: Z79.899 ICD-9: V58.6905/esolvedPain of right heelICD-10: M79.671 ICD-9: 729.505/esolvedStage 2 chronic kidney diseaseICD-10: N18.2 ICD-9: 585.205/esolvedTinea pedis of both feetICD-10: B35.3 ICD-9: 110.405/esolvedRecurrent major depressive disorder, in partial remissionICD-10: F33.41 ICD-9: 296.3504/4ActiveCellulitisICD-10: L03.90 ICD-9: 682.904esolvedDandruff in adultICD-10: L21.0 ICD-9: 690.1804/esolvedEncounter for other specified special examinationsICD-10: Z01.89 ICD-9: V72.8504/esolvedEncounter for screening for nutritional disorder ICD-10: Z13.21 ICD-9: V77.9904/esolvedImpacted cerumen, left earICD-10: H61.22 ICD-9: 380.404esolvedShortness of breathICD-10: R06.02 ICD-9: 786.0504/esolvedSkin tagICD-10: L91.8 ICD-9: 701.904/esolvedCoronary artery disease involving [place] coronary artery of [place] heart, angina presence unspecifiedICD-10: I25.10 ICD-9: 414.0102/ctiveInappropriate sexual behaviorICD-10: Z72.89 ICD-9: 312.8910/ctivePre-op evaluationICD-10: Z01.818 ICD-9: V72.8403/ctiveSecondary hypertensionICD-10: I15.9 ICD-9: 405.9903/ctiveDepressionICD-10: F32.9 ICD-9: 79206/esolvedDVT (deep venous thrombosis)ICD-10: I82.409 ICD-9: 453.4009/esolvedEncounter for immunizationICD-10: Z23 ICD-9: V03.8909/2ResolvedLong term (current) use of insulinICD-10: Z79.4 2ResolvedMuscular painICD-10: M79.10 ICD-9: 729.109/2ResolvedHypertension associated with diabetesICD-10: E11.59 ICD-9: 250.8008/2ResolvedContact with and (suspected) exposure to covid-19 ICD-10: Z20.822 ICD-9: V01.7908/1ResolvedOther infective acute otitis externa of left ear ICD-10: H60.392 ICD-9: 380.1008/esolvedScrotal skin lesionICD-10: N50.9 ICD-9: 608.908/esolvedAnemia due to stage 3b chronic kidney diseaseICD- 10: N18.32 ICD-9: 285.2105/1ResolvedChronic kidney disease, stage 3 unspecifiedICD- 10: N18.3004/esolvedContact with and (suspected) exposure to other viral communicable diseasesICD-10: Z20.828 ICD-9: V01.7902/9422YvcsnqaxUndlqtmjHpiedwp14/28/2020ActiveDiabetes mellitus Type 3Bregegi82/28/2020ActiveAnemia in chronic kidney diseaseICD-10: D63.1 02/12/2020ResolvedHyperlipidemia, unspecifiedICD-10: E78.Resolved Medications Medication Codes Instructions Start Date Stop Date Status Fill Instructions Humulin R U-500 (Concentrated) Insulin 500 unit/mL subcutaneous soln RxNorm: 607731 Inject 100 Unit(s) Subcutaneous TID 02/10/20 24 024 Inactive Basaglar KwikPen U-100 Insulin 100 unit/mL (3 mL) subcutaneous RxNorm: 1799529 Inject 30 Unit(s) Subcutaneous BID 02/10/20 24 024 Active Please dispense one month supply. pregabalin 100 mg capsule RxNorm: 919290 Take 1 Capsule(s) Oral QAM every morning 02/07/20 24 Active isosorbide mononitrate ER 60 mg tablet,extended release 24 hr RxNorm: 999963 Take 1 Tablet(s) Oral QD 02/01/20 24 Active aripiprazole 15 mg tablet RxNorm: 444008 Take 1/2 Tablet(s) Oral QD 02/01/20 24 Active torsemide 20 mg tablet RxNorm: 727892 1 TAB ORALLY DAILY (DX: EDEMA) 01/27/20 No Stop Date Active potassium chloride ER 20 mEq tablet,extended release(part/cryst) RxNorm: 4968233 2 TABS (40MEQ) ORALLY TWICE DAILY (DX: HYPOKALEMIA) 01/27/20 No Stop Date Active cephalexin 500 mg capsule RxNorm: 467768 Take 1 Capsule(s) Oral QID 12/17/19 24 024 Inactive cephalexin 500 mg capsule RxNorm: 410154 Take 1 Capsule(s) Oral QID 12/17/19 24 024 Inactive acetaminophen 500 mg tablet RxNorm: 479730 (MAX APAP:4GM/24HR) Take 1 Tablet(s) Oral TID as needed for pain 12/10/19 24 Active torsemide 20 mg tablet RxNorm: 951154 Take 1 Tablet(s) Oral QD 10/26/19 24 024 Inactive potassium chloride ER 20 mEq tablet,extended release RxNorm: 515898 Take 2 Tablet(s) Oral BID 10/26/19 24 Active torsemide 20 mg tablet RxNorm: 894972 Take 1 Tablet(s) Oral QD 10/26/19 24 024 Inactive potassium chloride ER 20 mEq tablet,extended release RxNorm: 448362 Take 2 Tablet(s) Oral BID 10/26/19 24 Inactive Artificial Tears (PF) 0.1 %-0.3 % drops in a dropperette RxNorm: 851799 Apply 1-2 Drop(s) Both eyes BID as needed 09/28/19 24 Active erythromycin 5 mg/gram (0.5 %) eye ointment RxNorm: 497649 Apply 1 Application Both eyes QHS every night at bedtime Instill ~1 cm ribbon into affected eye 09/28/19 24 024 Inactive Artificial Tears (PF) 0.1 %-0.3 % drops in a dropperette RxNorm: 013725 Apply 1-2 Drop(s) Both eyes BID as needed 09/28/19 24 Inactive erythromycin 5 mg/gram (0.5 %) eye ointment RxNorm: 326253 Apply 1 Application Both eyes QHS every night at bedtime Instill ~1 cm ribbon into affected eye 09/28/19 24 Inactive acetaminophen 500 mg tablet RxNorm: 215796 (MAX APAP:4GM/24HR) Take 1 Tablet(s) Oral TID as needed for pain 09/24/19 24 Inactive carvedilol 25 mg tablet RxNorm: 783663 Take 1 Tablet(s) Oral QD 09/08/19 24 No Stop Date Active pregabalin 100 mg capsule RxNorm: 081052 Take 1 Capsule(s) Oral QAM every morning 09/07/19 24 024 Inactive rosuvastatin 40 mg tablet RxNorm: 319599 Take 1 Tablet(s) Oral QPM every evening 07/13/19 24 No Stop Date Active ezetimibe 10 mg tablet RxNorm: 247078 Take 1 Tablet(s) Oral QD 07/13/19 24 No Stop Date Active bisacodyl 10 mg rectal suppository RxNorm: 755008 Insert 1 Suppository Rectal QD as needed 07/13/19 24 No Stop Date Active polyethylene glycol 3350 17 gram/dose oral powder RxNorm: 930553 Take 17 Gram(s) Oral BID as needed mix in 4-8ox water 07/13/19 24 No Stop Date Active ketoconazole 2 % shampoo RxNorm: 390989 Apply 1 Application Topical UD as directed 07/13/19 24 No Stop Date Active Ozempic 1 mg/dose (4 mg/3 mL) subcutaneous pen injector RxNorm: 3642453 Inject 1 Milligram(s) Subcutaneous QW once a week 07/13/19 24 No Stop Date Active Guaifenesin AC 10 mg-100 mg/5 mL oral liquid RxNorm: 592836 Take 10 Milliliter(s) Oral Q4H every four hours as needed 07/13/19 24 No Stop Date Active ammonium lactate 12 % topical cream RxNorm: 375965 Apply 1 Application Topical BID 07/13/19 24 No Stop Date Active hydrocortisone 2.5 % topical cream RxNorm: 560624 Apply 1 Application Topical BID as needed 07/13/19 24 No Stop Date Active rosuvastatin 20 mg sprinkle capsule RxNorm: 9287431 Take 1 Capsule(s) Oral QD 07/13/19 24 No Stop Date Active Vascepa 1 gram capsule RxNorm: 2679524 Take 2 Capsule(s) Oral BID 07/13/19 24 No Stop Date Active venlafaxine ER 75 mg capsule,extended release 24 hr RxNorm: 689207 Take 3 Capsule(s) Oral QD 07/13/19 24 No Stop Date Active aripiprazole 15 mg tablet RxNorm: 088595 Take 1/2 Tablet(s) Oral QD 07/13/19 24 024 Inactive isosorbide mononitrate ER 60 mg tablet,extended release 24 hr RxNorm: 990965 Take 1 Tablet(s) Oral QD 07/13/19 24 024 Inactive Basaglar KwikPen U-100 Insulin 100 unit/mL (3 mL) subcutaneous RxNorm: 6212106 Inject 30U SubQ twice daily 07/07/19 24 024 Inactive Please dispense one month supply. Basaglar KwikPen U-100 Insulin 100 unit/mL (3 mL) subcutaneous RxNorm: 0098356 Inject 30U SubQ twice daily 07/07/19 24 024 Inactive Please dispense one month supply. pregabalin 150 mg capsule RxNorm: 051166 Take 1 Capsule(s) Oral QHS every night at bedtime 07/05/19 24 024 Inactive pregabalin 150 mg capsule RxNorm: 023540 Take 1 Capsule(s) Oral QHS every night at bedtime 07/05/19 24 024 Inactive polyethylene glycol 3350 17 gram/dose oral powder RxNorm: 741337 Take 1 Packet Oral QD as needed (1 packet = 17g) mix with 4-8oz of liquid 06/15/19 024 Inactive bisacodyl 10 mg rectal suppository RxNorm: 972590 Insert one suppository per rectum once daily as needed for constipation 06/15/19 024 Inactive bisacodyl 10 mg rectal suppository RxNorm: 011077 Insert one suppository per rectum once daily as needed for constipation 06/15/19 024 Inactive pregabalin 100 mg capsule RxNorm: 956333 Take 1 Capsule(s) Oral QAM every morning 04/27/20 024 Inactive Levemir FlexPen 100 unit/mL (3 mL) solution subcutaneous insulin pen RxNorm: 723984 Inject 30 Unit(s) Subcutaneous BID 04/27/20 024 Inactive rosuvastatin 40 mg tablet RxNorm: 701528 Take 1 Tablet(s) Oral QPM every evening 04/16/20 024 Inactive D/C rosuvastatin 20mg venlafaxine ER 75 mg capsule,extended release 24 hr RxNorm: 948186 Take 3 Capsule(s) Oral QD 04/14/20 023 Inactive pregabalin 100 mg capsule RxNorm: 155354 Take 1 Capsule(s) Oral QAM every morning [...] meter clotrimazole 1 % topical cream RxNorm: 543890 Take apply topically to abdominal folds twice daily for 14 days 03/12/20 024 Inactive Ozempic 1 mg/dose (4 mg/3 mL) subcutaneous pen injector RxNorm: 1552306 Inject 1 Milligram(s) Subcutaneous QW once a week 03/11/20 023 Inactive rosuvastatin 20 mg tablet RxNorm: 666380 Take 1 Tablet(s) Oral QD 02/26/20 23 023 Inactive d/c pravastatin 80mg Ozempic 1 mg/dose (4 mg/3 mL) subcutaneous pen injector RxNorm: 1611967 Inject 1 Milligram(s) Subcutaneous QW once a week 02/20/20 23 023 Inactive pregabalin 150 mg capsule RxNorm: 061398 Take 1 Capsule(s) Oral HS at bed time 02/19/20 023 Inactive pregabalin 100 mg capsule RxNorm: 639712 Take 1 Capsule(s) Oral QAM every morning 02/18/20 023 Inactive venlafaxine ER 75 mg capsule,extended release 24 hr RxNorm: 826425 Take 3 Capsule(s) Oral QD 02/04/20 23 023 Inactive FreeStyle Chema 2 Sensor kit RxNorm: use as directed 02/04/20 023 Inactive FreeStyle Chema 2 Sensor kit RxNorm: use as directed 02/04/20 23 024 Inactive fluconazole 150 mg tablet RxNorm: 770292 Take 1 Tablet(s) Oral on day 3 and on day 6 02/03/20 024 Inactive chlorthalidone 25 mg tablet RxNorm: 286845 Take 1 Tablet(s) Oral QAM every morning 02/03/20 23 No Stop Date Active venlafaxine ER 150 mg capsule,extended release 24 hr RxNorm: 479798 Take 1 Capsule(s) Oral QD 02/03/20 23 023 Inactive acetaminophen 500 mg tablet RxNorm: 658759 1 TABLET ORALLY 3 TIMES DAILY (MAX APAP:4GM/24HR) 12/15/19 23 023 Inactive clotrimazole 1 % topical cream RxNorm: 566189 apply 1g topically to top of feet and in between toes BID 12/09/19 23 023 Inactive potassium chloride ER 20 mEq tablet,extended release RxNorm: 599760 Take 1 Tablet(s) Oral BID 12/09/19 23 024 Inactive d/c 20mEq once daily (sent from hospital) nystatin 100,000 unit/gram topical powder RxNorm: 055481 APPLY TO AFFECTED AREAS TOPICALLY 2 TIMES DAILY 11/21/19 23 024 Inactive Nystop 100,000 unit/gram topical powder RxNorm: 340432 Apply to abd folds, under breasts and L side of groin Topical BID x 14 days, then BID PRN 11/20/19 23 023 Inactive dx: yeast dermatitis Bengay Ultra Strength 4 %-30 %-10 % topical cream RxNorm: 949946 Apply 1 Gram(s) Topical QID PRN to feet and legs for neuropathic pain 11/11/19 23 024 Inactive clotrimazole 1 % topical cream RxNorm: 228669 Apply 1/2 Gram(s) Topical BID Apply to affected areas of groin, periarea, and abdominal topically 2 times daily 11/10/19 023 Inactive hydrocortisone 2.5 % topical cream RxNorm: 992054 Apply 1/2 Gram(s) Topical BID as needed 11/10/19 23 024 Inactive Humulin R U-500 (Concentrated) Insulin 500 unit/mL subcutaneous soln RxNorm: 306054 Inject 100 Unit(s) Subcutaneous TID 10/07/19 024 Inactive Levemir FlexPen 100 unit/mL (3 mL) solution subcutaneous insulin pen RxNorm: 087302 Inject 30 Unit(s) Subcutaneous BID 10/07/19 023 Inactive Ozempic 0.25 mg or 0.5 mg (2 mg/3 mL) subcutaneous pen injector RxNorm: 5707640 Inject 1/2 Milligram(s) Subcutaneous QW once a week 10/07/19 23 024 Inactive aripiprazole 15 mg tablet RxNorm: 225557 1/2 TAB (7.5MG) ORALLY DAILY (DX:MAJOR DEPRESSIVE DISORDER) 09/23/19 23 023 Inactive Lancets,Thin 28 gauge RxNorm: Use 1 as directed QID 09/15/19 23 024 Inactive Accu-Chek Guide test strips RxNorm: Use 1 Test Strip QID 05 023 Inactive ok to substitute with any covered alternative test strip torsemide 20 mg tablet RxNorm: 995361 Take 1 Tablet(s) Oral BID 09/09/19 23 024 Inactive d/c once daily dosing carvedilol 25 mg tablet RxNorm: 479393 Take 1 Tablet(s) Oral QD 08/25/19 23 024 Inactive pregabalin 150 mg capsule RxNorm: 877569 1 Capsule(s) Oral HS at bed time 08/18/19 023 Inactive pregabalin 100 mg capsule RxNorm: 965666 1 Capsule(s) Oral QAM every morning 08/18/19 23 023 Inactive carvedilol 25 mg tablet RxNorm: 459529 1 Tablet(s) Oral QD 07/28/19 023 Inactive lisinopril 20 mg tablet RxNorm: 002600 Give 1 Tablet(s) Oral QD 07/28/19 023 Inactive Lyrica 150 mg capsule RxNorm: 303311 Take 1 Capsule(s) Oral QHS every night at bedtime 07/19/19 023 Inactive d/c 100mg dose Diflucan 150 mg tablet RxNorm: 303750 Take 1 Tablet(s) Oral QD repeat on day 3 and 6 07/19/19 23 023 Inactive pregabalin 100 mg capsule RxNorm: 887276 Take 1 Capsule(s) Oral QAM every morning 07/19/19 023 Inactive gatifloxacin 0.5 % eye drops RxNorm: 457717 Instill 1 Drop(s) as directed TID Instill 1 drop in to affected eye(s) starting 1 day prior to surgery and continue until gone (do not exceed 4 weeks). 07/13/19 23 023 Inactive carvedilol 25 mg tablet RxNorm: 497250 2 Tablet(s) Oral BID 07/13/19 023 Inactive Humulin R Regular U-100 Insulin 100 unit/mL injection solution RxNorm: 590839 85 Unit(s) Injection TID 07/13/19 23 023 Inactive ketorolac 0.5 % eye drops RxNorm: 907168 Instill 1 Drop(s) as directed QID Instill 1 drop into affected eye(s) 4 times daily starting 1 day prior to surgery and continue until gone (do not exceed 4 weeks). 07/13/19 23 023 Inactive Diflucan 150 mg tablet RxNorm: 351806 Take 1 Tablet(s) Oral QD repeat on day 3 and 6 06/30/19 23 023 Inactive Accu-Chek Guide test strips RxNorm: Use 1 Test Strip QID Use 1 test strip to monitor blood glucose 4 times daily and as needed. Dx:E11.42. 06/23/19 23 023 Inactive ok to substitute with any covered alternative test strip dextromethorphan-gu aifenesin 10 mg-100 mg/5 mL oral liquid RxNorm: 407114 Take 10 Milliliter(s) Oral every 4 hours as needed for cough 06/19/19 23 023 Inactive dextromethorphan-gu aifenesin 10 mg-100 mg/5 mL oral liquid RxNorm: 923871 Take 10 Milliliter(s) Oral every 4 hours as needed for cough 06/19/19 23 023 Inactive Lyrica 150 mg capsule RxNorm: 813412 Take 1 Capsule(s) Oral QHS every night at bedtime 06/18/19 23 023 Inactive d/c 100mg dose aripiprazole 15 mg tablet RxNorm: 258642 1/2 TAB (7.5MG) ORALLY DAILY (DX:MAJOR DEPRESSIVE DISORDER) 06/05/19 23 023 Inactive pregabalin 100 mg capsule RxNorm: 420109 1 Capsule(s) Oral QAM every morning 06/02/19 23 023 Inactive Banophen 50 mg capsule RxNorm: 5512183 Take 1 Capsule(s) Oral Q6H every 6 hours as needed 05/19/19 23 No Stop Date Active Novolog Flexpen U-100 Insulin aspart 100 unit/mL (3 mL) subcutaneous RxNorm: 1150630 Inject 10 Unit(s) Subcutaneous QHS every night at bedtime with nighttime snack 04/08/20 22 022 Inactive Novolog Flexpen U-100 Insulin aspart 100 unit/mL (3 mL) subcutaneous RxNorm: 3052726 Inject 42 Unit(s) Subcutaneous TID in addition to sliding scale 04/08/20 022 Inactive d/c 36u albuterol sulfate HFA 90 mcg/actuation aerosol inhaler RxNorm: 9864815 Take 2 Puff(s) Inhalation Q4H every four hours as needed as needed for SOB, cough, or wheezing 04/07/20 030 Active Banophen 50 mg capsule RxNorm: 8543085 Take 1 Capsule(s) Oral Q6H every 6 hours as needed 04/06/20 023 Inactive diphenhydramine 50 mg tablet RxNorm: 0369005 Take 1 Tablet(s) Oral Q6H every 6 hours as needed 04/06/20 022 Inactive diphenhydramine 50 mg tablet RxNorm: 2827037 1 Tablet(s) Oral Q6H every 6 hours as needed 04/06/20 022 Inactive Abilify 15 mg tablet RxNorm: 522091 1/2 Tablet(s) Oral QD 03/10/20 023 Inactive Shingrix (PF) 50 mcg/0.5 mL intramuscular suspension, kit RxNorm: 5333994 Administer 1/2 Milliliter(s) Intramuscular QD one time shingrix step 2 ( step 1 given 11/04/21) WITH needle - Nursing please administer upon arrival and once administered post a bridge message with date of administration, ammunition components inspector, expiration date, and lot# so we can update [facility] 02/18/20 22 022 Inactive dispense with needle Shingrix (PF) 50 mcg/0.5 mL intramuscular suspension, kit RxNorm: 3477923 Administer 1/2 Milliliter(s) Intramuscular QD one time shingrix step 2 ( step 1 given 11/04/21) WITH needle - Nursing please administer upon arrival and once administered post a bridge message with date of administration, ammunition components inspector, expiration date, and lot# so we can update [facility] 02/18/20 22 022 Inactive dispense with needle polyethylene glycol 3350 17 gram/dose oral powder RxNorm: 926736 Take 17=1 capful Gram(s) Oral QD mix with 4-8oz of liquid 01/08/20 22 023 Inactive take this in addition to BID prn order Lyrica 100 mg capsule RxNorm: 563088 Take 1 Capsule(s) Oral QAM every morning 01/08/20 22 022 Inactive d/c 50mg dose acetaminophen 500 mg tablet RxNorm: 116757 Take 1 Tablet(s) Oral TID 01/08/20 22 022 Inactive d/c PRN order Lyrica 150 mg capsule RxNorm: 056135 Take 1 Capsule(s) Oral QHS every night at bedtime 01/08/20 22 023 Inactive d/c 100mg dose Abilify 5 mg tablet RxNorm: 160148 Take 1 Tablet(s) Oral QD take 1 tab po QD #30 refill 5 dx: MDD 12/12/19 22 022 Inactive Abilify 5 mg tablet RxNorm: 790843 Take 1 Tablet(s) Oral QD take 1 tab po QD #30 refill 5 dx: MDD 12/12/19 22 022 Inactive Novolog Flexpen U-100 Insulin aspart 100 unit/mL (3 mL) subcutaneous RxNorm: 8233397 Inject 42 Unit(s) Subcutaneous TID in addition to sliding scale 12/10/19 22 022 Inactive d/c 36u chlorthalidone 25 mg tablet RxNorm: 493693 Take 1 Tablet(s) Oral QAM every morning 12/10/19 22 023 Inactive pregabalin 50 mg capsule RxNorm: 735270 Take 1 Capsule(s) Oral QAM every morning 11/12/19 22 022 Inactive tetanus-diphtheria toxoids-Td 2 Lf unit-2 Lf unit/0.5 mL IM suspension RxNorm: 139 Take 0.5 Miscellaneous Intramuscular 11/12/19 22 022 Inactive need tdap - nursing to administer upon arrival pregabalin 50 mg capsule RxNorm: 844445 Take 1 Capsule(s) Oral QAM every morning 10/16/19 22 022 Inactive pregabalin 50 mg capsule RxNorm: 731810 Take 1 Capsule(s) Oral QAM every morning 10/16/19 22 022 Inactive pregabalin 50 mg capsule RxNorm: 422637 1 Capsule(s) Oral QAM every morning 10/15/19 22 022 Inactive Shingrix (PF) 50 mcg/0.5 mL intramuscular suspension, kit RxNorm: 6958408 Administer 1/2 Milliliter(s) Intramuscular one time Nursing please administer upon arrival and once administered post a bridge message with date of administration, ammunition components inspector, expiration date, and lot# so we can update [facility]. 10/09/19 22 022 Inactive shingrix step 1 Shingrix (PF) 50 mcg/0.5 mL intramuscular suspension, kit RxNorm: 7495332 Administer 1/2 Milliliter(s) Intramuscular one time Nursing please administer upon arrival and once administered post a bridge message with date of administration, ammunition components inspector, expiration date, and lot# so we can update [facility]. 10/09/19 22 022 Inactive shingrix step 1 cholecalciferol (vitamin D3) 1,250 mcg (50,000 unit) capsule RxNorm: 478022 Take 1 Capsule(s) Oral QW once a [...] aspart 100 unit/mL (3 mL) subcutaneous RxNorm: 6632393 Inject 10 Unit(s) Subcutaneous QHS every night at bedtime with nighttime snack 10/08/19 22 022 Inactive Shingrix (PF) 50 mcg/0.5 mL intramuscular suspension, kit RxNorm: 7452942 ADMINISTER 2-DOSE SERIES PER CDC GUIDELINES 10/08/19 22 Active Shingrix (PF) 50 mcg/0.5 mL intramuscular suspension, kit RxNorm: 0569407 ADMINISTER 2-DOSE SERIES PER CDC GUIDELINES 10/08/19 22 Inactive Novolog Flexpen U-100 Insulin aspart 100 unit/mL (3 mL) subcutaneous RxNorm: 1661072 Inject 36 Unit(s) Subcutaneous TID in addition to sliding scale 10/08/19 Inactive Novofine Autocover 30 gauge x 1/3 needle RxNorm: Use 1 Miscellaneous UD as directed Use 1 needle as directed to administer insulin 5 times a day Dx:E11.42. 10/03/19 Inactive ok to substitute with any covered alternative pen needle benzoyl peroxide 10 % topical cleanser RxNorm: 483188 Apply 1 Application Topical QD apply to face, wash rinse and dry once daily (may change to QOD if drying) 08/19/19 Inactive (%covered by insurance) #60ml refill 11 dx: acne benzoyl peroxide 10 % topical cleanser RxNorm: 785685 Apply 1 Application Topical QD apply to face, wash rinse and dry once daily (may change to QOD if drying) 08/19/19 022 Inactive (%covered by insurance) #60ml refill 11 dx: acne benzoyl peroxide 10 % topical cleanser RxNorm: 230144 Apply 1 Application Topical QD apply to face, wash rinse and dry once daily (may change to QOD if drying) 08/19/19 022 Inactive (%covered by insurance) #60ml refill 11 dx: acne Lyrica 50 mg capsule RxNorm: 678970 Take 1 Capsule(s) Oral QAM every morning Take 1 capsule by mouth once daily 08/19/19 22 022 Inactive benzoyl peroxide 10 % topical cleanser RxNorm: 029477 Apply 1 Application Topical QD apply to face, wash rinse and dry once daily (may change to QOD if drying) 08/19/19 22 022 Inactive (%covered by insurance) #60ml refill 11 dx: acne Lyrica 100 mg capsule RxNorm: 106848 Take 1 Capsule(s) Oral QHS every night at bedtime Take 1 capsule by mouth once daily at bedtime 08/19/19 22 022 Inactive Lyrica 100 mg capsule RxNorm: 742854 Take 1 Capsule(s) Oral QHS every night at bedtime Take 1 capsule by mouth once daily at bedtime 08/16/19 22 022 Inactive Lyrica 50 mg capsule RxNorm: 324271 Take 1 Capsule(s) Oral QAM every morning Take 1 capsule by mouth once daily 08/16/19 22 022 Inactive Levemir FlexTouch U-100 Insulin 100 unit/mL (3 mL) subcutaneous pen RxNorm: 286999 Inject 86 Unit(s) Subcutaneous BID 08/05/19 22 022 Inactive d/c 83units BID Lyrica 100 mg capsule RxNorm: 406008 Take 1 Capsule(s) Oral QHS every night at bedtime Take 1 capsule by mouth once daily at bedtime 07/14/19 22 022 Inactive Lyrica 50 mg capsule RxNorm: 325484 Take 1 Capsule(s) Oral QAM every morning Take 1 capsule by mouth once daily 07/14/19 22 022 Inactive Levemir FlexTouch U-100 Insulin 100 unit/mL (3 mL) subcutaneous pen RxNorm: 322240 Inject 83 Unit(s) Subcutaneous BID 07/08/19 22 [...] test strip hydralazine 50 mg tablet RxNorm: 683872 Take 1 Tablet(s) Oral QID 05/05/20 21 022 Inactive venlafaxine ER 225 mg tablet,extended release 24 hr RxNorm: 466569 Take 1 Tablet(s) Oral QD 05/05/20 21 021 Inactive venlafaxine ER 225 mg tablet,extended release 24 hr RxNorm: 163026 Take 1 Tablet(s) Oral QD 05/05/20 21 022 Inactive isosorbide mononitrate ER 30 mg tablet,extended release 24 hr RxNorm: 769603 Take 1 Tablet(s) Oral QD 05/05/20 21 024 Inactive hydralazine 50 mg tablet RxNorm: 669911 Take 1 Tablet(s) Oral QID 05/05/20 21 021 Inactive aspirin 81 mg tablet,delayed release RxNorm: 358818 Take 1 Tablet(s) Oral QD 03/31/20 21 022 Inactive Vitamin D2 1,250 mcg (50,000 unit) capsule RxNorm: 3819783 Take 1 Capsule(s) Oral QW once a week x 12 weeks 03/31/20 022 Inactive Vitamin D2 1,250 mcg (50,000 unit) capsule RxNorm: 0471058 Take 1 Capsule(s) Oral QW once a week 03/31/20 021 Inactive Zetia 10 mg tablet RxNorm: 990922 Take 1 Tablet(s) Oral QD 03/31/20 024 Inactive Zetia 10 mg tablet RxNorm: 500421 Take 1 Tablet(s) Oral QD 03/31/20 021 Inactive hydralazine 25 mg tablet RxNorm: 157670 Take 1 Tablet(s) Oral QID 03/31/20 021 Inactive hydralazine 25 mg tablet RxNorm: 343271 Take 1 Tablet(s) Oral QID 03/31/20 021 Inactive hydralazine 10 mg tablet RxNorm: 142974 Take 1 Tablet(s) Oral QID 03/03/20 021 Inactive cephalexin 500 mg tablet RxNorm: 958925 Take 1 Tablet(s) Oral QID 02/27/20 021 Inactive cephalexin 500 mg tablet RxNorm: 155022 Take 1 Tablet(s) Oral QID 02/27/20 021 Inactive lisinopril 40 mg tablet RxNorm: 714288 Take 1 Tablet(s) Oral QD 02/11/20 023 Inactive Eliquis 5 mg tablet RxNorm: 4683388 Take 1 Tablet(s) Oral BID 01/05/20 022 Inactive Eliquis 5 mg tablet RxNorm: 0970836 Take 2 Tablet(s) Oral QD 01/01/20 21 021 Inactive Lyrica 50 mg capsule RxNorm: 460216 Take 1 Capsule(s) Oral QAM every morning 12/24/19 21 021 Inactive Lyrica 100 mg capsule RxNorm: 902696 Take 1 Capsule(s) Oral QHS every night at bedtime 12/24/19 21 021 Inactive clotrimazole 1 % topical cream RxNorm: 744825 Apply to right foot and toes Topical BID 12/04/19 21 023 Inactive metoprolol succinate ER 200 mg tablet,extended release 24 hr RxNorm: 548094 Take 1 Tablet(s) Oral QD 12/04/19 023 Inactive ciprofloxacin 500 mg tablet RxNorm: 915398 Take 1 Tablet(s) Oral QD 11/30/19 21 021 Inactive DX ofloxacin otic drops Accu-Chek Guide test strips RxNorm: USE 1 TO CHECK GLUCOSE 4 TIMES DAILY AND NEEDED 11/15/19 21 023 Inactive Blood Glucose Test strips RxNorm: Use 1 Test Strip QID at PRN 11/05/19 21 023 Inactive E11.42 lisinopril 30 mg tablet RxNorm: 334602 Take 1 Tablet(s) Oral QD 10/30/19 021 Inactive lisinopril 20 mg tablet RxNorm: 887487 Take 1 Tablet(s) Oral QD 10/23/19 021 Inactive lisinopril 20 mg tablet RxNorm: 551744 Take 1 Tablet(s) Oral QD 10/23/19 021 Inactive lisinopril 10 mg tablet RxNorm: 834697 Take 1 Tablet(s) Oral QD 10/02/19 021 Inactive icosapent ethyl 1 gram capsule RxNorm: 5986761 Take 2 Capsule(s) (2 gm) Oral BID with meals 09/12/19 024 Inactive Okay to dispense one 2gm tab if you have that available. icosapent ethyl 1 gram capsule RxNorm: 2998959 Take 2 Capsule(s) Oral BID 09/12/19 21 021 Inactive Okay to dispense one 2gm tab if you have that available. amlodipine 10 mg tablet RxNorm: 538818 Take 1 Tablet(s) Oral QD 09/04/19 21 022 Inactive aspirin 81 mg tablet,delayed release RxNorm: 459081 Take 1 Tablet(s) Oral QD 09/04/19 021 Inactive Levemir FlexTouch U-100 Insulin 100 unit/mL (3 mL) subcutaneous pen RxNorm: 217001 Inject 150 Unit(s) Subcutaneous BID 09/04/19 21 022 Inactive venlafaxine ER 150 mg tablet,extended release 24 hr RxNorm: 308357 Take 1 Tablet(s) Oral QD 09/04/19 21 Inactive clotrimazole-betame thasone 1 %-0.05 % topical cream RxNorm: 042837 Apply to rash on red area on left abdomen/chest Topical BID 08/10/19 21 Inactive amlodipine 5 mg tablet RxNorm: 196398 Take 1 Tablet(s) Oral QD 07/31/19 Inactive cephalexin 500 mg tablet RxNorm: 311620 Take 1 Tablet(s) Oral BID BID - Twice Daily 07/31/19 Inactive Start 08/01/20 pantoprazole 40 mg tablet,delayed release RxNorm: 538735 Take 1 Tablet(s) Oral QAM every morning 07/08/19 Inactive senna 8.6 mg tablet RxNorm: 241212 Take 1 Tablet(s) Oral QD 07/08/19 Inactive carbamazepine 200 mg tablet RxNorm: 690992 Take 1 Tablet(s) Oral BID 07/08/19 Inactive clopidogrel 75 mg tablet RxNorm: 177317 Take 1 Tablet(s) Oral QD 07/08/19 Inactive Blood Glucose Test strips RxNorm: Use 1 Test Strip QID at PRN 07/08/19 Inactive E11.42 Novolog Flexpen U-100 Insulin aspart 100 unit/mL (3 mL) subcutaneous RxNorm: 6879566 Administer per sliding scale Milliliter(s) Subcutaneous TID 151-200: 10 u; 201-250: 20 u; 251-300: 30 u; 301-350: 40 u; 351-400: 50 u. 07/08/19 Inactive lisinopril 5 mg tablet RxNorm: 538627 Take 1 Tablet(s) Oral QD 07/08/19 Inactive Novolog Flexpen U-100 Insulin aspart 100 unit/mL (3 mL) subcutaneous RxNorm: 5134508 Inject 85 Unit(s) Subcutaneous TID 07/08/19 022 Inactive pravastatin 80 mg tablet RxNorm: 455672 Take 1 Tablet(s) Oral QHS every night at bedtime 07/08/19 023 Inactive clotrimazole 1 % topical cream RxNorm: 238065 Apply to bilateral groin areas Topical BID 07/08/19 21 022 Inactive metoprolol succinate ER 200 mg tablet,extended release 24 hr RxNorm: 280317 Take 1 Tablet(s) Oral QD 07/08/19 021 Inactive Vitamin D3 25 mcg (1,000 unit) tablet RxNorm: 574005 Take 1 Tablet(s) Oral QD 07/08/19 021 Inactive isosorbide dinitrate 30 mg tablet RxNorm: 104371 Take 1 Tablet(s) Oral QD 07/08/19 021 Inactive Levemir FlexTouch U-100 Insulin 100 unit/mL (3 mL) subcutaneous pen RxNorm: 554393 Inject 140 Unit(s) Subcutaneous BID 07/08/19 021 Inactive torsemide 20 mg tablet RxNorm: 608667 Take 1 Tablet(s) Oral QD 07/08/19 023 Inactive venlafaxine 75 mg tablet RxNorm: 255408 Take 1 Tablet(s) Oral QD 07/08/19 021 Inactive acetaminophen 500 mg tablet RxNorm: 457424 Take 1 Tablet(s) Oral TID as needed for headache 06/18/19 021 Inactive acetaminophen 500 mg tablet RxNorm: 658002 Take 1 Tablet(s) Oral TID as needed for headache 06/18/19 021 Inactive Lyrica 100 mg capsule RxNorm: 546633 Take 1 Capsule(s) Oral QHS every night at bedtime 06/11/19 021 Inactive Lyrica 50 mg capsule RxNorm: 023206 Take 1 Capsule(s) Oral QAM every morning 06/10/19 21 021 Inactive hydrocortisone 2.5 % topical cream RxNorm: 195025 Apply to bilateral groin creases Topical BID 05/15/20 20 021 Inactive clotrimazole 1 % topical cream RxNorm: 915951 Apply to bilateral groin areas Topical BID 05/15/20 20 Inactive Lyrica 50 mg capsule RxNorm: 078587 Take 1 Capsule(s) Oral QAM every morning 05/14/20 20 Inactive Lyrica 100 mg capsule RxNorm: 541972 Take 1 Capsule(s) Oral QHS every night [...] Inactive Nystop 100,000 unit/gram topical powder RxNorm: 673050 Apply to abd folds, under breasts and L side of groin Topical BID x 14 days, then BID PRN 04/08/20 20 Inactive dx: yeast dermatitis Lyrica 100 mg capsule RxNorm: 001553 Take 1 Capsule(s) Oral QHS every night at bedtime 03/13/20 20 Inactive Lyrica 50 mg capsule RxNorm: 047669 Take 1 Capsule(s) Oral QAM every morning 03/13/20 20 Inactive ketoconazole 2 % shampoo RxNorm: 967326 Apply Topical two times a week with showers 03/11/20 20 024 Inactive cholecalciferol (vitamin D3) 50 mcg (2,000 unit) tablet RxNorm: 209822 Take 1 Tablet(s) Oral QD 03/11/20 20 021 Inactive Zetia 10 mg tablet RxNorm: 754651 Take 1 Tablet(s) Oral QD 03/07/20 20 Inactive Zetia 10 mg tablet RxNorm: 723210 Take 1 Tablet(s) Oral QD 03/07/20 20 Inactive Lyrica 50 mg capsule RxNorm: 901578 Take 1 Capsule(s) Oral QAM every morning 02/15/20 20 Inactive Lyrica 100 mg capsule RxNorm: 375844 Take 1 Capsule(s) Oral QHS every night at bedtime 02/15/20 Inactive Lyrica 100 mg capsule RxNorm: 306114 Take 1 Capsule(s) Oral QHS every night at bedtime 02/15/20 20 Inactive Lyrica 50 mg capsule RxNorm: 656432 Take 1 Capsule(s) Oral QAM every morning 02/15/20 Inactive metoprolol succinate ER 200 mg tablet,extended release 24 hr RxNorm: 997553 Take 1 Tablet(s) Oral QD 08/11 Activeloperamide 2 mg capsuleRxNorm: 042628Lboz 1 Capsule(s) Oral QID as needed 06/12/2021ctivehydralazine 50 mg tabletRxNorm: 580705Brcw 1 Tablet(s) Oral QID 08/11/2022ctivevenlafaxine ER 75 mg capsule,extended release 24 hrRxNorm: 698301Ntat 3 Capsule(s) Oral QD/Inactivepolyethylene glycol 3350 17 gram/dose oral powderRxNorm: 451413Fbvt 17=1 capful Gram(s) Oral BID as needed mix with 4-8oz of asovor90/Inactiveicosapent ethyl 1 gram capsuleRxNorm: 9098213Rrhq 2 Capsule(s) (2 gm) Oral BID with meals /InactiveOkay to dispense one 2gm tab if you have that available.Levemir FlexTouch U-100 Insulin 100 unit/mL (3 mL) subcutaneous pen RxNorm: 958629Filegx 80 Unit(s) Subcutaneous BID/Inactive Novolog Flexpen U-100 Insulin aspart 100 unit/mL (3 mL) subcutaneousRxNorm: 0432795Xxwzwm 30 Unit(s) Subcutaneous TID with meals/Inactive Medication Administered No Medication Administered data Immunizations Vaccine Codes Dose Date Status Covid-19 (Adult) Unknown 06/02/2023 Influenza CVX: 205 06/02/2023 Zostavax CVX: 187 03/24/2022 Zoster CVX: 187 [...] 05/07/2009 Tetanus, Diptheria, Pertussis CVX: 115 2008 Functional Status Functional / Cognitive Codes Status Result Ef fective Dates Functional Assessment Unknown ADL - Dressing Independen t 02/08/2024 Functional Assessment Unknown ADL - Feeding Independent 02/08/2024 Functional Assessment Unknown ADL - Tolieting Independe nt 02/08/2024 Functional Assessment Unknown ADL - Bathing Independent 02/08/2024 Functional Assessment Unknown ADL - Grooming Independen t 02/08/2024 Functional Assessment Unknown ADL - Physical Ambulation Independent 02/08/2024 Functional Assessment Unknown iADL - Mod e of Transportation Dependent 02/08/2024 Functional Assessment Unknown iADL - Managing Medicatio n Dependent 02/08/2024 Functional Assessment Unknown Other: Miesha pping, Finances, Housekeeping, Dependent 02/08/2024 Reason For Visit No Reason For Visit data Plan of Care Planned Activity Notes Codes Status Date Referral: [facility] WPtel: [address], [address] [id number] USReferralRecords [id number]/08/2023Referral: [facility] CARLO WPtel: [address] [id number]/12/2022Referral: General CardiologyReferralCompleted 1Referral: General PsychologistReferralClosedReferral: General PsychiatristReferralPatient/Family Scheduling AppointmentReferral: General Outpatient TherapyReferralInitiated Instructions Comment Date Leonid is a Male [...] Sister Jyotsna involved in his care cell# [phone] Guardian: Don (tapan met in person 09/01/21), now has Lexii (same group as don)AWV 02.08.2024. Lab Schedule: Mar-/September*September (CBC with diff, CMP, A1c) [...] Martines note from 11.08.2023 at [facility] (follow up 6 months)Colon & Rectal Surgery visit scheduled for 03/08/24 with Matilde Pérez PA-C. 02/08/2024
--- OUTSIDE RECORDS SUMMARY | 2024-02-19 13:16 | XMS_ITS | CCD ---
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 Academic Manager Name Role Phone [facility] Primary Care Provider Leona vailable [facility], [facility] Chronic Care Management U navailable Summary Purpose DataExchange Insurance Providers Payer name Policy type / Coverage type Covered democrat ID Effective Begin Date Effective End Date [place] [id number] Unknown Unknown [place] Medicare [place] B [id number] Unknown Unknown Family history Sister Brittany Suggs [...] Facility 09/03/[address]: 9102717 Non-Smoker / No History of Smoking 09/02/[address]: 652703447 No Alcohol Consum ption 09/02/2020 Allergies, Adverse Reactions, Alerts Substance Reaction Codes Entered Date Inactivated Date Status * NO KNOWN FOOD ALLERGIES Wbknehh2507/13/2023No Inactive DateActiveLISINOPRILRxNorm: 1646158No Inactive DateActiveMetformin DHjQwtyqbj76/28/2020No Inactive DateActive* NO KNOWN ENVIRONMENTAL XHSTPEPPDLvpxlvu25/27/2024No Inactive DateActive Problems Condition Codes Effective Dates Condition St atus BMI 60.0-69.9, adult ICD-10: Z68.44 ICD-9: V85.4408/ctiveLow back painICD-10: M54.50 ICD-9: 724.208/ctiveLower extremity edemaICD-10: R60.0 ICD-9: 782.308/ctiveOnychogryposisICD-10: L60.2 ICD-9: 703.808/ctivePhysical deconditioningICD-10: R53.81 ICD-9: 799.308/ctivePressure ulcer of left calf, unstageableICD-10: L89.890 ICD-9: 707.0908/ctivePVD (peripheral vascular disease)ICD-10: I73.9 ICD-9: 443.908/ctiveSeizure disorderICD-10: G40.909 ICD-9: 345.9008/ctiveConstipation by delayed colonic transitICD-10: K59.01 ICD-9: 564.0107/ctiveHx of deep venous thrombosisICD-10: Z86.718 ICD-9: V12.5107/ctiveHypercoagulable stateICD-10: D68.59 ICD-9: 289.8107ctiveHypertensive heart disease without heart failure ICD-10: I11.9 [...] CKDICD-10: N18.9 ICD-9: 585.905/ctiveLearning disabilityICD-10: F81.9 ICD-9: 315.205/ctiveParaparesis of both lower limbsICD-10: G82.20 ICD-9: 344.105/ctiveReducible umbilical herniaICD-10: K42.9 ICD-9: 553.105ctiveCallus of heelICD-10: L84 ICD-9: 57987esolvedGout due to renal impairmentICD-10: M10.30 ICD-9: 274.1005esolvedHyperhidrosis of palmsICD-10: L74.512 ICD-9: 705.2105esolvedHyperlipidemia, unspecifiedICD-10: E78.5 ICD-9: 272.405/esolvedOther termite control service representative (current) drug therapyICD-10: Z79.899 ICD-9: V58.69010/12/2023esolvedPain of right heelICD-10: M79.671 ICD-9: 729.505esolvedStage 2 chronic kidney diseaseICD-10: N18.2 ICD-9: 585.205esolvedTinea pedis of both feetICD-10: B35.3 ICD-9: 110.405esolvedAmputated toe of right footICD-10: S98.131A ICD-9: 895.004/ctiveDiabetic neuropathy associated with type 2 diabetes mellitusICD-10: E11.40 ICD-9: 250.6004ctiveHyperlipidemia associated with type 2 diabetes mellitusICD-10: E11.69 ICD-9: 250.8004ctiveRecurrent major depressive disorder, in partial remissionICD-10: F33.41 ICD-9: 296.3504/ctiveCellulitisICD-10: L03.90 ICD-9: 682.904esolvedDandruff in adultICD-10: L21.0 ICD-9: 690.1804esolvedEncounter for other specified special examinationsICD-10: Z01.89 ICD-9: V72.8504esolvedEncounter for screening for nutritional disorder ICD-10: Z13.21 ICD-9: V77.9904/esolvedImpacted cerumen, left earICD-10: H61.22 ICD-9: 380.404/esolvedShortness of breathICD-10: R06.02 ICD-9: 786.0504/esolvedSkin tagICD-10: L91.8 ICD-9: 701.904/esolvedCoronary artery disease involving [place] coronary artery of [place] heart, angina presence unspecifiedICD-10: I25.10 ICD-9: 414.0102/ctiveInappropriate sexual behaviorICD-10: Z72.89 ICD-9: 312.8910/ctiveAnnual physical examICD-10: Z00.00 ICD-9: V70.009/ctivePre-op evaluationICD-10: Z01.818 ICD-9: V72.8403/ctiveSecondary hypertensionICD-10: I15.9 ICD-9: 405.9903/ctiveDepressionICD-10: F32.9 ICD-9: 02380/esolvedDVT (deep venous thrombosis)ICD-10: I82.409 ICD-9: 453.4009/esolvedEncounter for immunizationICD-10: Z23 ICD-9: V03.8909/esolvedLong term (current) use of insulinICD-10: Z79.4 02/10/2022esolvedMuscular painICD-10: M79.10 ICD-9: 729.109esolvedHypertension associated with diabetesICD-10: E11.59 ICD-9: 250.8008/esolvedContact with and (suspected) exposure to covid-19 ICD-10: Z20.822 ICD-9: V01.7908/1ResolvedOther infective acute otitis externa of left ear ICD-10: H60.392 ICD-9: 380.1008/1ResolvedScrotal skin lesionICD-10: N50.9 ICD-9: 608.908esolvedAnemia due to stage 3b chronic kidney diseaseICD- 10: N18.32 ICD-9: 285.2105esolvedChronic kidney disease, stage 3 unspecifiedICD- 10: N18.30009/03/2020esolvedContact with and (suspected) exposure to other viral communicable diseasesICD-10: Z20.828 ICD-9: V01.79020720DlciwsdgGdcrifywOhcevag05/28/2020ActiveDiabetes mellitus Type 4Vabltft30/28/2020ActiveAnemia in chronic kidney diseaseICD-10: D63.1 02/12/2020ResolvedHyperlipidemia, unspecifiedICD-10: E78.Resolved Medications Medication Codes Instructions Start Date Stop Date Status Fill Instructions torsemide 20 mg tablet RxNorm: 095211 1 TAB ORALLY DAILY (DX: EDEMA) 01/27/20 No Stop Date Active potassium chloride ER 20 mEq tablet,extended release(part/cryst) RxNorm: 0204013 2 TABS (40MEQ) ORALLY TWICE DAILY (DX: HYPOKALEMIA) 01/27/20 No Stop Date Active cephalexin 500 mg capsule RxNorm: 287784 Take 1 Capsule(s) Oral QID 12/17/19 24 024 Inactive cephalexin 500 mg capsule RxNorm: 424159 Take 1 Capsule(s) Oral QID 12/17/19 24 024 Inactive acetaminophen 500 mg tablet RxNorm: 040479 (MAX APAP:4GM/24HR) Take 1 Tablet(s) Oral TID as needed for pain 12/10/19 24 024 Active torsemide 20 mg tablet RxNorm: 034856 Take 1 Tablet(s) Oral QD 10/26/19 24 024 Inactive potassium chloride ER 20 mEq tablet,extended release RxNorm: 592355 Take 2 Tablet(s) Oral BID 10/26/19 24 025 Active torsemide 20 mg tablet RxNorm: 535883 Take 1 Tablet(s) Oral QD 10/26/19 24 024 Inactive potassium chloride ER 20 mEq tablet,extended release RxNorm: 973746 Take 2 Tablet(s) Oral BID 10/26/19 24 024 Inactive Artificial Tears (PF) 0.1 %-0.3 % drops in a dropperette RxNorm: 672795 Apply 1-2 Drop(s) Both eyes BID as needed 09/28/19 24 025 Active erythromycin 5 mg/gram (0.5 %) eye ointment RxNorm: 112830 Apply 1 Application Both eyes QHS every night at bedtime Instill ~1 cm ribbon into affected eye 09/28/19 24 024 Inactive Artificial Tears (PF) 0.1 %-0.3 % drops in a dropperette RxNorm: 912147 Apply 1-2 Drop(s) Both eyes BID as needed 09/28/19 24 024 Inactive erythromycin 5 mg/gram (0.5 %) eye ointment RxNorm: 321693 Apply 1 Application Both eyes QHS every night at bedtime Instill ~1 cm ribbon into affected eye 09/28/19 24 024 Inactive acetaminophen 500 mg tablet RxNorm: 337792 (MAX APAP:4GM/24HR) Take 1 Tablet(s) Oral TID as needed for pain 09/24/19 24 024 Inactive carvedilol 25 mg tablet RxNorm: 143747 Take 1 Tablet(s) Oral QD 09/08/19 24 No Stop Date Active pregabalin 100 mg capsule RxNorm: 156930 Take 1 Capsule(s) Oral QAM every morning 09/07/19 24 024 Inactive rosuvastatin 40 mg tablet RxNorm: 750988 Take 1 Tablet(s) Oral QPM every evening 07/13/19 24 No Stop Date Active ezetimibe 10 mg tablet RxNorm: 229851 Take 1 Tablet(s) Oral QD 07/13/19 24 No Stop Date Active bisacodyl 10 mg rectal suppository RxNorm: 281612 Insert 1 Suppository Rectal QD as needed 07/13/19 24 No Stop Date Active polyethylene glycol 3350 17 gram/dose oral powder RxNorm: 227401 Take 17 Gram(s) Oral BID as needed mix in 4-8ox water 07/13/19 24 No Stop Date Active ketoconazole 2 % shampoo RxNorm: 427677 Apply 1 Application Topical UD as directed 07/13/19 24 No Stop Date Active aripiprazole 15 mg tablet RxNorm: 464907 Take 1/2 Tablet(s) Oral QD 07/13/19 24 024 Inactive Ozempic 1 mg/dose (4 mg/3 mL) subcutaneous pen injector RxNorm: 5176547 Inject 1 Milligram(s) Subcutaneous QW once a week 07/13/19 24 No Stop Date Active Guaifenesin AC 10 mg-100 mg/5 mL oral liquid RxNorm: 036038 Take 10 Milliliter(s) Oral Q4H every four hours as needed 07/13/19 24 No Stop Date Active isosorbide mononitrate ER 60 mg tablet,extended release 24 hr RxNorm: 247731 Take 1 Tablet(s) Oral QD 07/13/19 24 024 Inactive ammonium lactate 12 % topical cream RxNorm: 699519 Apply 1 Application Topical BID 07/13/19 24 No Stop Date Active hydrocortisone 2.5 % topical cream RxNorm: 542740 Apply 1 Application Topical BID as needed 07/13/19 24 No Stop Date Active rosuvastatin 20 mg sprinkle capsule RxNorm: 6839456 Take 1 Capsule(s) Oral QD 07/13/19 24 No Stop Date Active Vascepa 1 gram capsule RxNorm: 7416274 Take 2 Capsule(s) Oral BID 07/13/19 24 No Stop Date Active venlafaxine ER 75 mg capsule,extended release 24 hr RxNorm: 850471 Take 3 Capsule(s) Oral QD 07/13/19 24 No Stop Date Active Basaglar KwikPen U-100 Insulin 100 unit/mL (3 mL) subcutaneous RxNorm: 1685183 Inject 30U SubQ twice daily 07/07/19 24 024 Inactive Please dispense one month supply. Basaglar KwikPen U-100 Insulin 100 unit/mL (3 mL) subcutaneous RxNorm: 0491403 Inject 30U SubQ twice daily 07/07/19 24 024 Inactive Please dispense one month supply. pregabalin 150 mg capsule RxNorm: 396137 Take 1 Capsule(s) Oral QHS every night at bedtime 07/05/19 024 Inactive pregabalin 150 mg capsule RxNorm: 041175 Take 1 Capsule(s) Oral QHS every night at bedtime 07/05/19 24 024 Inactive polyethylene glycol 3350 17 gram/dose oral powder RxNorm: 616492 Take 1 Packet Oral QD as needed (1 packet = 17g) mix with 4-8oz of liquid 06/15/19 24 024 Inactive bisacodyl 10 mg rectal suppository RxNorm: 460204 Insert one suppository per rectum once daily as needed for constipation 06/15/19 024 Inactive bisacodyl 10 mg rectal suppository RxNorm: 159655 Insert one suppository per rectum once daily as needed for constipation 06/15/19 024 Inactive pregabalin 100 mg capsule RxNorm: 255579 Take 1 Capsule(s) Oral QAM every morning 04/27/20 024 Inactive Levemir FlexPen 100 unit/mL (3 mL) solution subcutaneous insulin pen RxNorm: 504572 Inject 30 Unit(s) Subcutaneous BID 04/27/20 23 024 Inactive rosuvastatin 40 mg tablet RxNorm: 676902 Take 1 Tablet(s) Oral QPM every evening 04/16/20 024 Inactive D/C rosuvastatin 20mg venlafaxine ER 75 mg capsule,extended release 24 hr RxNorm: 483791 Take 3 Capsule(s) Oral QD 04/14/20 23 023 Inactive pregabalin 100 mg capsule RxNorm: 851023 Take 1 Capsule(s) Oral QAM every morning [...] meter clotrimazole 1 % topical cream RxNorm: 841776 Take apply topically to abdominal folds twice daily for 14 days 03/12/20 024 Inactive Ozempic 1 mg/dose (4 mg/3 mL) subcutaneous pen injector RxNorm: 4684624 Inject 1 Milligram(s) Subcutaneous QW once a week 03/11/20 23 023 Inactive rosuvastatin 20 mg tablet RxNorm: 162504 Take 1 Tablet(s) Oral QD 02/26/20 23 023 Inactive d/c pravastatin 80mg Ozempic 1 mg/dose (4 mg/3 mL) subcutaneous pen injector RxNorm: 8586624 Inject 1 Milligram(s) Subcutaneous QW once a week 02/20/20 23 023 Inactive pregabalin 150 mg capsule RxNorm: 192717 Take 1 Capsule(s) Oral HS at bed time 02/19/20 23 023 Inactive pregabalin 100 mg capsule RxNorm: 819929 Take 1 Capsule(s) Oral QAM every morning 02/18/20 023 Inactive venlafaxine ER 75 mg capsule,extended release 24 hr RxNorm: 087474 Take 3 Capsule(s) Oral QD 02/04/20 23 023 Inactive FreeStyle Chema 2 Sensor kit RxNorm: use as directed 02/04/20 23 023 Inactive FreeStyle Chema 2 Sensor kit RxNorm: use as directed 02/04/20 23 024 Inactive fluconazole 150 mg tablet RxNorm: 232822 Take 1 Tablet(s) Oral on day 3 and on day 6 02/03/20 23 024 Inactive chlorthalidone 25 mg tablet RxNorm: 515038 Take 1 Tablet(s) Oral QAM every morning 02/03/20 23 No Stop Date Active venlafaxine ER 150 mg capsule,extended release 24 hr RxNorm: 082043 Take 1 Capsule(s) Oral QD 02/03/20 23 023 Inactive acetaminophen 500 mg tablet RxNorm: 847863 1 TABLET ORALLY 3 TIMES DAILY (MAX APAP:4GM/24HR) 12/15/19 023 Inactive clotrimazole 1 % topical cream RxNorm: 708226 apply 1g topically to top of feet and in between toes BID 12/09/19 023 Inactive potassium chloride ER 20 mEq tablet,extended release RxNorm: 536029 Take 1 Tablet(s) Oral BID 12/09/19 024 Inactive d/c 20mEq once daily (sent from hospital) nystatin 100,000 unit/gram topical powder RxNorm: 097115 APPLY TO AFFECTED AREAS TOPICALLY 2 TIMES DAILY 11/21/19 024 Inactive Nystop 100,000 unit/gram topical powder RxNorm: 214782 Apply to abd folds, under breasts and L side of groin Topical BID x 14 days, then BID PRN 11/20/19 023 Inactive dx: yeast dermatitis [place] Ultra Strength 4 %-30 %-10 % topical cream RxNorm: 355836 Apply 1 Gram(s) Topical QID PRN to feet and legs for neuropathic pain 11/11/19 024 Inactive clotrimazole 1 % topical cream RxNorm: 412783 Apply 1/2 Gram(s) Topical BID Apply to affected areas of groin, periarea, and abdominal topically 2 times daily 11/10/19 023 Inactive hydrocortisone 2.5 % topical cream RxNorm: 264304 Apply 1/2 Gram(s) Topical BID as needed 11/10/19 024 Inactive Humulin R U-500 (Concentrated) Insulin 500 unit/mL subcutaneous soln RxNorm: 153008 Inject 100 Unit(s) Subcutaneous TID 10/07/19 024 Inactive Levemir FlexPen 100 unit/mL (3 mL) solution subcutaneous insulin pen RxNorm: 759822 Inject 30 Unit(s) Subcutaneous BID 10/07/19 023 Inactive Ozempic 0.25 mg or 0.5 mg (2 mg/3 mL) subcutaneous pen injector RxNorm: 9530044 Inject 1/2 Milligram(s) Subcutaneous QW once a week 10/07/19 23 024 Inactive aripiprazole 15 mg tablet RxNorm: 548872 1/2 TAB (7.5MG) ORALLY DAILY (DX:MAJOR DEPRESSIVE DISORDER) 09/23/19 23 023 Inactive Lancets,Thin 28 gauge RxNorm: Use 1 as directed QID 09/15/19 23 024 Inactive Accu-Chek Guide test strips RxNorm: Use 1 Test Strip QID 09/15/19 23 023 Inactive ok to substitute with any covered alternative test strip torsemide 20 mg tablet RxNorm: 241035 Take 1 Tablet(s) Oral BID 09/09/19 23 024 Inactive d/c once daily dosing carvedilol 25 mg tablet RxNorm: 831936 Take 1 Tablet(s) Oral QD 08/25/19 23 024 Inactive pregabalin 150 mg capsule RxNorm: 494283 1 Capsule(s) Oral HS at bed time 08/18/19 23 023 Inactive pregabalin 100 mg capsule RxNorm: 001193 1 Capsule(s) Oral QAM every morning 08/18/19 23 023 Inactive carvedilol 25 mg tablet RxNorm: 276764 1 Tablet(s) Oral QD 07/28/19 23 023 Inactive lisinopril 20 mg tablet RxNorm: 605786 Give 1 Tablet(s) Oral QD 07/28/19 23 023 Inactive Lyrica 150 mg capsule RxNorm: 562912 Take 1 Capsule(s) Oral QHS every night at bedtime 07/19/19 023 Inactive d/c 100mg dose Diflucan 150 mg tablet RxNorm: 932355 Take 1 Tablet(s) Oral QD repeat on day 3 and 6 07/19/19 23 023 Inactive pregabalin 100 mg capsule RxNorm: 150729 Take 1 Capsule(s) Oral QAM every morning 07/19/19 23 023 Inactive gatifloxacin 0.5 % eye drops RxNorm: 870628 Instill 1 Drop(s) as directed TID Instill 1 drop in to affected eye(s) starting 1 day prior to surgery and continue until gone (do not exceed 4 weeks). 07/13/19 23 023 Inactive carvedilol 25 mg tablet RxNorm: 143945 2 Tablet(s) Oral BID 07/13/19 023 Inactive Humulin R Regular U-100 Insulin 100 unit/mL injection solution RxNorm: 836233 85 Unit(s) Injection TID 07/13/19 23 023 Inactive ketorolac 0.5 % eye drops RxNorm: 314473 Instill 1 Drop(s) as directed QID Instill 1 drop into affected eye(s) 4 times daily starting 1 day prior to surgery and continue until gone (do not exceed 4 weeks). 07/13/19 023 Inactive Diflucan 150 mg tablet RxNorm: 779129 Take 1 Tablet(s) Oral QD repeat on day 3 and 6 06/30/19 23 023 Inactive Accu-Chek Guide test strips RxNorm: Use 1 Test Strip QID Use 1 test strip to monitor blood glucose 4 times daily and as needed. Dx:E11.42. 06/23/19 23 023 Inactive ok to substitute with any covered alternative test strip dextromethorphan-gu aifenesin 10 mg-100 mg/5 mL oral liquid RxNorm: 351287 Take 10 Milliliter(s) Oral every 4 hours as needed for cough 06/19/19 23 023 Inactive dextromethorphan-gu aifenesin 10 mg-100 mg/5 mL oral liquid RxNorm: 538573 Take 10 Milliliter(s) Oral every 4 hours as needed for cough 06/19/19 23 023 Inactive Lyrica 150 mg capsule RxNorm: 179305 Take 1 Capsule(s) Oral QHS every night at bedtime 06/18/19 23 023 Inactive d/c 100mg dose aripiprazole 15 mg tablet RxNorm: 008253 1/2 TAB (7.5MG) ORALLY DAILY (DX:MAJOR DEPRESSIVE DISORDER) 06/05/19 23 023 Inactive pregabalin 100 mg capsule RxNorm: 104613 1 Capsule(s) Oral QAM every morning 06/02/19 023 Inactive Banophen 50 mg capsule RxNorm: 7427069 Take 1 Capsule(s) Oral Q6H every 6 hours as needed 05/19/19 No Stop Date Active Novolog Flexpen U-100 Insulin aspart 100 unit/mL (3 mL) subcutaneous RxNorm: 0730671 Inject 10 Unit(s) Subcutaneous QHS every night at bedtime with nighttime snack 04/08/20 022 Inactive Novolog Flexpen U-100 Insulin aspart 100 unit/mL (3 mL) subcutaneous RxNorm: 8352987 Inject 42 Unit(s) Subcutaneous TID in addition to sliding scale 04/08/20 Inactive d/c 36u albuterol sulfate HFA 90 mcg/actuation aerosol inhaler RxNorm: 7274642 Take 2 Puff(s) Inhalation Q4H every four hours as needed as needed for SOB, cough, or wheezing 04/07/20 030 Active Banophen 50 mg capsule RxNorm: 1976897 Take 1 Capsule(s) Oral Q6H every 6 hours as needed 04/06/20 023 Inactive diphenhydramine 50 mg tablet RxNorm: 9143097 Take 1 Tablet(s) Oral Q6H every 6 hours as needed 04/06/20 022 Inactive diphenhydramine 50 mg tablet RxNorm: 5964776 1 Tablet(s) Oral Q6H every 6 hours as needed 04/06/20 022 Inactive Abilify 15 mg tablet RxNorm: 758295 1/2 Tablet(s) Oral QD 03/10/20 22 023 Inactive Shingrix (PF) 50 mcg/0.5 mL intramuscular suspension, kit RxNorm: 2339684 Administer 1/2 Milliliter(s) Intramuscular QD one time shingrix step 2 ( step 1 given 11/04/21) WITH needle - Nursing please administer upon arrival and once administered post a bridge message with date of administration, icer machine, expiration date, and lot# so we can update [facility] 02/18/20 22 022 Inactive dispense with needle Shingrix (PF) 50 mcg/0.5 mL intramuscular suspension, kit RxNorm: 1229835 Administer 1/2 Milliliter(s) Intramuscular QD one time shingrix step 2 ( step 1 given 11/04/21) WITH needle - Nursing please administer upon arrival and once administered post a bridge message with date of administration, icer machine, expiration date, and lot# so we can update [facility] 02/18/20 22 022 Inactive dispense with needle polyethylene glycol 3350 17 gram/dose oral powder RxNorm: 453274 Take 17=1 capful Gram(s) Oral QD mix with 4-8oz of liquid 01/08/20 22 023 Inactive take this in addition to BID prn order Lyrica 100 mg capsule RxNorm: 477473 Take 1 Capsule(s) Oral QAM every morning 01/08/20 22 022 Inactive d/c 50mg dose acetaminophen 500 mg tablet RxNorm: 101485 Take 1 Tablet(s) Oral TID 01/08/20 22 022 Inactive d/c PRN order Lyrica 150 mg capsule RxNorm: 400202 Take 1 Capsule(s) Oral QHS every night at bedtime 01/08/20 22 023 Inactive d/c 100mg dose Abilify 5 mg tablet RxNorm: 885427 Take 1 Tablet(s) Oral QD take 1 tab po QD #30 refill 5 dx: MDD 12/12/19 22 022 Inactive Abilify 5 mg tablet RxNorm: 886762 Take 1 Tablet(s) Oral QD take 1 tab po QD #30 refill 5 dx: MDD 12/12/19 22 022 Inactive Novolog Flexpen U-100 Insulin aspart 100 unit/mL (3 mL) subcutaneous RxNorm: 4557845 Inject 42 Unit(s) Subcutaneous TID in addition to sliding scale 12/10/19 22 022 Inactive d/c 36u chlorthalidone 25 mg tablet RxNorm: 922845 Take 1 Tablet(s) Oral QAM every morning 12/10/19 22 023 Inactive pregabalin 50 mg capsule RxNorm: 347344 Take 1 Capsule(s) Oral QAM every morning 11/12/19 22 022 Inactive tetanus-diphtheria toxoids-Td 2 Lf unit-2 Lf unit/0.5 mL IM suspension RxNorm: 139 Take 0.5 Miscellaneous Intramuscular 11/12/19 22 022 Inactive need tdap - nursing to administer upon arrival pregabalin 50 mg capsule RxNorm: 723767 Take 1 Capsule(s) Oral QAM every morning 10/16/19 22 022 Inactive pregabalin 50 mg capsule RxNorm: 470626 Take 1 Capsule(s) Oral QAM every morning 10/16/19 22 022 Inactive pregabalin 50 mg capsule RxNorm: 550113 1 Capsule(s) Oral QAM every morning 10/15/19 22 022 Inactive Shingrix (PF) 50 mcg/0.5 mL intramuscular suspension, kit RxNorm: 0895811 Administer 1/2 Milliliter(s) Intramuscular one time Nursing please administer upon arrival and once administered post a bridge message with date of administration, icer machine, expiration date, and lot# so we can update [facility]. 10/09/19 22 022 Inactive shingrix step 1 Shingrix (PF) 50 mcg/0.5 mL intramuscular suspension, kit RxNorm: 3338242 Administer 1/2 Milliliter(s) Intramuscular one time Nursing please administer upon arrival and once administered post a bridge message with date of administration, icer machine, expiration date, and lot# so we can update [facility]. 10/09/19 22 022 Inactive shingrix step 1 cholecalciferol (vitamin D3) 1,250 mcg (50,000 unit) capsule RxNorm: 990917 Take 1 Capsule(s) Oral QW once a [...] aspart 100 unit/mL (3 mL) subcutaneous RxNorm: 7743529 Inject 10 Unit(s) Subcutaneous QHS every night at bedtime with nighttime snack 10/08/19 22 Inactive Shingrix (PF) 50 mcg/0.5 mL intramuscular suspension, kit RxNorm: 6885869 ADMINISTER 2-DOSE SERIES PER CDC GUIDELINES 10/08/19 22 Active Shingrix (PF) 50 mcg/0.5 mL intramuscular suspension, kit RxNorm: 2210560 ADMINISTER 2-DOSE SERIES PER CDC GUIDELINES 10/08/19 22 Inactive Novolog Flexpen U-100 Insulin aspart 100 unit/mL (3 mL) subcutaneous RxNorm: 8003039 Inject 36 Unit(s) Subcutaneous TID in addition to sliding scale 10/08/19 Inactive Novofine Autocover 30 gauge x 1/3 needle RxNorm: Use 1 Miscellaneous UD as directed Use 1 needle as directed to administer insulin 5 times a day Dx:E11.42. 10/03/19 Inactive ok to substitute with any covered alternative pen needle benzoyl peroxide 10 % topical cleanser RxNorm: 010552 Apply 1 Application Topical QD apply to face, wash rinse and dry once daily (may change to QOD if drying) 08/19/19 022 Inactive (%covered by insurance) #60ml refill 11 dx: acne benzoyl peroxide 10 % topical cleanser RxNorm: 912047 Apply 1 Application Topical QD apply to face, wash rinse and dry once daily (may change to QOD if drying) 08/19/19 22 022 Inactive (%covered by insurance) #60ml refill 11 dx: acne benzoyl peroxide 10 % topical cleanser RxNorm: 104812 Apply 1 Application Topical QD apply to face, wash rinse and dry once daily (may change to QOD if drying) 08/19/19 22 022 Inactive (%covered by insurance) #60ml refill 11 dx: acne Lyrica 50 mg capsule RxNorm: 004085 Take 1 Capsule(s) Oral QAM every morning Take 1 capsule by mouth once daily 08/19/19 22 Inactive benzoyl peroxide 10 % topical cleanser RxNorm: 025302 Apply 1 Application Topical QD apply to face, wash rinse and dry once daily (may change to QOD if drying) 08/19/19 22 Inactive (%covered by insurance) #60ml refill 11 dx: acne Lyrica 100 mg capsule RxNorm: 720702 Take 1 Capsule(s) Oral QHS every night at bedtime Take 1 capsule by mouth once daily at bedtime 08/19/19 22 022 Inactive Lyrica 100 mg capsule RxNorm: 144747 Take 1 Capsule(s) Oral QHS every night at bedtime Take 1 capsule by mouth once daily at bedtime 08/16/19 Inactive Lyrica 50 mg capsule RxNorm: 808505 Take 1 Capsule(s) Oral QAM every morning Take 1 capsule by mouth once daily 08/16/19 22 Inactive Levemir FlexTouch U-100 Insulin 100 unit/mL (3 mL) subcutaneous pen RxNorm: 610853 Inject 86 Unit(s) Subcutaneous BID 08/05/19 22 022 Inactive d/c 83units BID Lyrica 100 mg capsule RxNorm: 541741 Take 1 Capsule(s) Oral QHS every night at bedtime Take 1 capsule by mouth once daily at bedtime 07/14/19 22 022 Inactive Lyrica 50 mg capsule RxNorm: 547243 Take 1 Capsule(s) Oral QAM every morning Take 1 capsule by mouth once daily 07/14/19 22 022 Inactive Levemir FlexTouch U-100 Insulin 100 unit/mL (3 mL) subcutaneous pen RxNorm: 362779 Inject 83 Unit(s) Subcutaneous BID 07/08/19 22 [...] test strip hydralazine 50 mg tablet RxNorm: 986762 Take 1 Tablet(s) Oral QID 05/05/20 21 022 Inactive venlafaxine ER 225 mg tablet,extended release 24 hr RxNorm: 136322 Take 1 Tablet(s) Oral QD 05/05/20 21 021 Inactive venlafaxine ER 225 mg tablet,extended release 24 hr RxNorm: 685031 Take 1 Tablet(s) Oral QD 05/05/20 022 Inactive isosorbide mononitrate ER 30 mg tablet,extended release 24 hr RxNorm: 869373 Take 1 Tablet(s) Oral QD 05/05/20 21 024 Inactive hydralazine 50 mg tablet RxNorm: 557749 Take 1 Tablet(s) Oral QID 05/05/20 21 021 Inactive aspirin 81 mg tablet,delayed release RxNorm: 240001 Take 1 Tablet(s) Oral QD 03/31/20 022 Inactive Vitamin D2 1,250 mcg (50,000 unit) capsule RxNorm: 0207348 Take 1 Capsule(s) Oral QW once a week x 12 weeks 03/31/20 022 Inactive Vitamin D2 1,250 mcg (50,000 unit) capsule RxNorm: 2204967 Take 1 Capsule(s) Oral QW once a week 03/31/20 021 Inactive Zetia 10 mg tablet RxNorm: 517407 Take 1 Tablet(s) Oral QD 03/31/20 024 Inactive Zetia 10 mg tablet RxNorm: 846488 Take 1 Tablet(s) Oral QD 03/31/20 021 Inactive hydralazine 25 mg tablet RxNorm: 132502 Take 1 Tablet(s) Oral QID 03/31/20 21 021 Inactive hydralazine 25 mg tablet RxNorm: 892663 Take 1 Tablet(s) Oral QID 03/31/20 021 Inactive hydralazine 10 mg tablet RxNorm: 150359 Take 1 Tablet(s) Oral QID 03/03/20 021 Inactive cephalexin 500 mg tablet RxNorm: 987899 Take 1 Tablet(s) Oral QID 02/27/20 021 Inactive cephalexin 500 mg tablet RxNorm: 826705 Take 1 Tablet(s) Oral QID 02/27/20 021 Inactive lisinopril 40 mg tablet RxNorm: 681291 Take 1 Tablet(s) Oral QD 02/11/20 21 023 Inactive Eliquis 5 mg tablet RxNorm: 6689117 Take 1 Tablet(s) Oral BID 01/05/20 21 022 Inactive Eliquis 5 mg tablet RxNorm: 4190824 Take 2 Tablet(s) Oral QD 01/01/20 21 021 Inactive Lyrica 50 mg capsule RxNorm: 701742 Take 1 Capsule(s) Oral QAM every morning 12/24/19 21 021 Inactive Lyrica 100 mg capsule RxNorm: 456324 Take 1 Capsule(s) Oral QHS every night at bedtime 12/24/19 021 Inactive clotrimazole 1 % topical cream RxNorm: 080626 Apply to right foot and toes Topical BID 12/04/19 21 023 Inactive metoprolol succinate ER 200 mg tablet,extended release 24 hr RxNorm: 359087 Take 1 Tablet(s) Oral QD 12/04/19 21 023 Inactive ciprofloxacin 500 mg tablet RxNorm: 725800 Take 1 Tablet(s) Oral QD 11/30/19 21 021 Inactive DX ofloxacin otic drops Accu-Chek Guide test strips RxNorm: USE 1 TO CHECK GLUCOSE 4 TIMES DAILY AND NEEDED 11/15/19 21 023 Inactive Blood Glucose Test strips RxNorm: Use 1 Test Strip QID at PRN 11/05/19 21 023 Inactive E11.42 lisinopril 30 mg tablet RxNorm: 595356 Take 1 Tablet(s) Oral QD 10/30/19 021 Inactive lisinopril 20 mg tablet RxNorm: 760211 Take 1 Tablet(s) Oral QD 10/23/19 21 021 Inactive lisinopril 20 mg tablet RxNorm: 840852 Take 1 Tablet(s) Oral QD 10/23/19 21 021 Inactive lisinopril 10 mg tablet RxNorm: 282044 Take 1 Tablet(s) Oral QD 10/02/19 21 021 Inactive icosapent ethyl 1 gram capsule RxNorm: 6620182 Take 2 Capsule(s) (2 gm) Oral BID with meals 09/12/19 21 024 Inactive Okay to dispense one 2gm tab if you have that available. icosapent ethyl 1 gram capsule RxNorm: 3273011 Take 2 Capsule(s) Oral BID 09/12/19 21 021 Inactive Okay to dispense one 2gm tab if you have that available. amlodipine 10 mg tablet RxNorm: 304673 Take 1 Tablet(s) Oral QD 09/04/19 022 Inactive aspirin 81 mg tablet,delayed release RxNorm: 529853 Take 1 Tablet(s) Oral QD 09/04/19 Inactive Levemir FlexTouch U-100 Insulin 100 unit/mL (3 mL) subcutaneous pen RxNorm: 687624 Inject 150 Unit(s) Subcutaneous BID 09/04/19 022 Inactive venlafaxine ER 150 mg tablet,extended release 24 hr RxNorm: 379827 Take 1 Tablet(s) Oral QD 09/04/19 Inactive clotrimazole-betame thasone 1 %-0.05 % topical cream RxNorm: 764340 Apply to rash on red area on left abdomen/chest Topical BID 08/10/19 Inactive amlodipine 5 mg tablet RxNorm: 506252 Take 1 Tablet(s) Oral QD 07/31/19 Inactive cephalexin 500 mg tablet RxNorm: 753230 Take 1 Tablet(s) Oral BID BID - Twice Daily 07/31/19 021 Inactive Start 08/01/20 pantoprazole 40 mg tablet,delayed release RxNorm: 001468 Take 1 Tablet(s) Oral QAM every morning 07/08/19 022 Inactive senna 8.6 mg tablet RxNorm: 007755 Take 1 Tablet(s) Oral QD 07/08/19 022 Inactive carbamazepine 200 mg tablet RxNorm: 284016 Take 1 Tablet(s) Oral BID 07/08/19 022 Inactive clopidogrel 75 mg tablet RxNorm: 012280 Take 1 Tablet(s) Oral QD 07/08/19 021 Inactive Blood Glucose Test strips RxNorm: Use 1 Test Strip QID at PRN 07/08/19 21 021 Inactive E11.42 Novolog Flexpen U-100 Insulin aspart 100 unit/mL (3 mL) subcutaneous RxNorm: 7157847 Administer per sliding scale Milliliter(s) Subcutaneous TID 151-200: 10 u; 201-250: 20 u; 251-300: 30 u; 301-350: 40 u; 351-400: 50 u. 07/08/19 21 022 Inactive lisinopril 5 mg tablet RxNorm: 598660 Take 1 Tablet(s) Oral QD 07/08/19 21 021 Inactive Novolog Flexpen U-100 Insulin aspart 100 unit/mL (3 mL) subcutaneous RxNorm: 1157776 Inject 85 Unit(s) Subcutaneous TID 07/08/19 022 Inactive pravastatin 80 mg tablet RxNorm: 514138 Take 1 Tablet(s) Oral QHS every night at bedtime 07/08/19 023 Inactive clotrimazole 1 % topical cream RxNorm: 699246 Apply to bilateral groin areas Topical BID 07/08/19 Inactive metoprolol succinate ER 200 mg tablet,extended release 24 hr RxNorm: 641052 Take 1 Tablet(s) Oral QD 07/08/19 021 Inactive Vitamin D3 25 mcg (1,000 unit) tablet RxNorm: 050306 Take 1 Tablet(s) Oral QD 07/08/19 021 Inactive isosorbide dinitrate 30 mg tablet RxNorm: 229427 Take 1 Tablet(s) Oral QD 07/08/19 021 Inactive Levemir FlexTouch U-100 Insulin 100 unit/mL (3 mL) subcutaneous pen RxNorm: 666799 Inject 140 Unit(s) Subcutaneous BID 07/08/19 021 Inactive torsemide 20 mg tablet RxNorm: 581253 Take 1 Tablet(s) Oral QD 07/08/19 023 Inactive venlafaxine 75 mg tablet RxNorm: 149831 Take 1 Tablet(s) Oral QD 07/08/19 021 Inactive acetaminophen 500 mg tablet RxNorm: 910315 Take 1 Tablet(s) Oral TID as needed for headache 06/18/19 Inactive acetaminophen 500 mg tablet RxNorm: 914133 Take 1 Tablet(s) Oral TID as needed for headache 06/18/19 21 021 Inactive Lyrica 100 mg capsule RxNorm: 843330 Take 1 Capsule(s) Oral QHS every night at bedtime 06/11/19 21 021 Inactive Lyrica 50 mg capsule RxNorm: 525591 Take 1 Capsule(s) Oral QAM every morning 06/10/19 21 021 Inactive hydrocortisone 2.5 % topical cream RxNorm: 017989 Apply to bilateral groin creases Topical BID 05/15/20 20 021 Inactive clotrimazole 1 % topical cream RxNorm: 519887 Apply to bilateral groin areas Topical BID 05/15/20 20 021 Inactive Lyrica 50 mg capsule RxNorm: 968083 Take 1 Capsule(s) Oral QAM every morning 05/14/20 20 020 Inactive Lyrica 100 mg capsule RxNorm: 355086 Take 1 Capsule(s) Oral QHS every night [...] Inactive Nystop 100,000 unit/gram topical powder RxNorm: 017494 Apply to abd folds, under breasts and L side of groin Topical BID x 14 days, then BID PRN 04/08/20 20 020 Inactive dx: yeast dermatitis Lyrica 100 mg capsule RxNorm: 409298 Take 1 Capsule(s) Oral QHS every night at bedtime 03/13/20 20 020 Inactive Lyrica 50 mg capsule RxNorm: 544657 Take 1 Capsule(s) Oral QAM every morning 03/13/20 20 Inactive ketoconazole 2 % shampoo RxNorm: 019126 Apply Topical two times a week with showers 03/11/20 20 Inactive cholecalciferol (vitamin D3) 50 mcg (2,000 unit) tablet RxNorm: 509901 Take 1 Tablet(s) Oral QD 03/11/20 20 Inactive Zetia 10 mg tablet RxNorm: 448482 Take 1 Tablet(s) Oral QD 03/07/20 20 021 Inactive Zetia 10 mg tablet RxNorm: 845409 Take 1 Tablet(s) Oral QD 03/07/20 20 Inactive Lyrica 50 mg capsule RxNorm: 236518 Take 1 Capsule(s) Oral QAM every morning 02/15/20 20 Inactive Lyrica 100 mg capsule RxNorm: 091768 Take 1 Capsule(s) Oral QHS every night at bedtime 02/15/20 20 Inactive Lyrica 100 mg capsule RxNorm: 598443 Take 1 Capsule(s) Oral QHS every night at bedtime 02/15/20 20 Inactive Lyrica 50 mg capsule RxNorm: 363998 Take 1 Capsule(s) Oral QAM every morning 02/15/20 20 Inactive metoprolol succinate ER 200 mg tablet,extended release 24 hr RxNorm: 699094 Take 1 Tablet(s) Oral QD 08/11 Activeloperamide 2 mg capsuleRxNorm: 420177Lexl 1 Capsule(s) Oral QID as needed 06/12/2021ctivehydralazine 50 mg tabletRxNorm: 187551Aran 1 Tablet(s) Oral QID 08/11/2022ctivevenlafaxine ER 75 mg capsule,extended release 24 hrRxNorm: 591235Mdnl 3 Capsule(s) Oral QD/Inactivepolyethylene glycol 3350 17 gram/dose oral powderRxNorm: 914572Iqdt 17=1 capful Gram(s) Oral BID as needed mix with 4-8oz of hlhjoo41/27//Inactiveicosapent ethyl 1 gram capsuleRxNorm: 6543047Vdoj 2 Capsule(s) (2 gm) Oral BID with meals /InactiveOkay to dispense one 2gm tab if you have that available.Levemir FlexTouch U-100 Insulin 100 unit/mL (3 mL) subcutaneous pen RxNorm: 268162Vfuqhs 80 Unit(s) Subcutaneous BID07/14//Inactive Novolog Flexpen U-100 Insulin aspart 100 unit/mL (3 mL) subcutaneousRxNorm: 0084892Hyxiyz 30 Unit(s) Subcutaneous TID with meals/Inactive Medication [...] Codes Status Date Referral: [facility] WPtel: [address] [id number] USReferralRecords Cpjcofkz24/08/2023Referral: [facility] CARLO WPtel: [address] [facility] [address] [id number]/12/2022Referral: General CardiologyReferralCompleted 1Referral: General PsychologistReferralClosedReferral: General PsychiatristReferralPatient/Family [...] Sister Jyotsna involved in his care cell# [phone] Guardian: Don (tapan met in person 09/01/21), [...] Martines note from 11.08.2023 at [facility] (follow up 6 months)Colon & Rectal Surgery visit scheduled for 03/08/24 with Matilde Pérez PA-C. 02/08/2024
--- OUTSIDE RECORDS SUMMARY | 2024-02-19 13:16 | XMS_ITS | CCD ---
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 Role Phone [place] [employer] Primary Care Provider Leona vailable [place]pit [employer], [facility] Chronic Care Management U navailable Summary Purpose DataExchange Insurance Providers Payer name Policy type / Coverage type Covered libertarian ID Effective Begin Date Effective End Date Medicare [place] Medicare Part B [id number] Unknown Unknown Medicaid [place] Medicare Part B [id number] Unknown Unknown Family history Sister Brittany Suggs [...] Snf 09/03/[address]: 0648022 Non-Smoker / No History of Smoking 09/02/[address]: 133876112 No Alcohol Consum ption 09/02/2020 Allergies, Adverse Reactions, Alerts Substance Reaction Codes Entered Date Inactivated Date Status * NO KNOWN FOOD ALLERGIES Tfetdhu2407/13/2023No Inactive DateActiveLISINOPRILRxNorm: 2172273No Inactive DateActiveMetformin LGwTztrfwv81/28/2020No Inactive DateActive* NO KNOWN ENVIRONMENTAL AVRUMUKAZWzksylt57/27/2024No Inactive DateActive Problems Condition Codes Effective Dates [...] K42.9 ICD-9: 553.105ctiveCallus of heelICD-10: L84 ICD-9: 97817esolvedGout due to renal impairmentICD-10: M10.30 ICD-9: 274.1005esolvedHyperhidrosis of palmsICD-10: L74.512 ICD-9: 705.2105esolvedHyperlipidemia, unspecifiedICD-10: E78.5 ICD-9: 272.405/esolvedOther manager long term care (current) drug therapyICD-10: Z79.899 ICD-9: V58.69010/12/2023esolvedPain of [...] tagICD-10: L91.8 ICD-9: 701.904/esolvedCoronary artery disease involving [place] coronary artery of [place] heart, angina presence unspecifiedICD-10: I25.10 ICD-9: 414.0102/ctiveInappropriate sexual behaviorICD-10: Z72.89 ICD-9: 312.8910/ctiveAnnual physical examICD-10: Z00.00 ICD-9: V70.009/ctivePre-op evaluationICD-10: Z01.818 ICD-9: V72.8403/ctiveSecondary hypertensionICD-10: I15.9 ICD-9: 405.9903/ctiveDepressionICD-10: F32.9 ICD-9: 38633/esolvedDVT (deep venous thrombosis)ICD-10: I82.409 ICD-9: 453.4009/esolvedEncounter for [...] 285.21051ResolvedChronic kidney disease, stage 3 unspecifiedICD- 10: N18.30009/03/2020esolvedContact with and (suspected) exposure to other viral communicable diseasesICD-10: Z20.828 ICD-9: V01.79023139LqagcijwXuixwcizKoqvbds81/28/2020ActiveDiabetes mellitus Type 7Wsgmvba30/28/2020ActiveAnemia in chronic kidney diseaseICD-10: D63.1 02/12/2020ResolvedHyperlipidemia, unspecifiedICD-10: E78.Resolved Medications Medication Codes Instructions Start Date Stop Date Status Fill Instructions isosorbide mononitrate ER 60 mg tablet,extended release 24 hr RxNorm: 237548 Take 1 Tablet(s) Oral QD 02/01/20 24 025 Active aripiprazole 15 mg tablet RxNorm: 877645 Take 1/2 Tablet(s) Oral QD 02/01/20 24 025 Active torsemide 20 mg tablet RxNorm: 100527 1 TAB ORALLY DAILY (DX: EDEMA) 01/27/20 24 No Stop Date Active potassium chloride ER 20 mEq tablet,extended release(part/cryst) RxNorm: 8316550 2 TABS (40MEQ) ORALLY TWICE DAILY (DX: HYPOKALEMIA) 01/27/20 24 No Stop Date Active cephalexin 500 mg capsule RxNorm: 124465 Take 1 Capsule(s) Oral QID 12/17/19 24 024 Inactive cephalexin 500 mg capsule RxNorm: 633567 Take 1 Capsule(s) Oral QID 12/17/19 24 024 Inactive acetaminophen 500 mg tablet RxNorm: 250029 (MAX APAP:4GM/24HR) Take 1 Tablet(s) Oral TID as needed for pain 12/10/19 24 12/26/2 024 Active torsemide 20 mg tablet RxNorm: 279290 Take 1 Tablet(s) Oral QD 10/26/19 24 Inactive potassium chloride ER 20 mEq tablet,extended release RxNorm: 19800522 Take 2 Tablet(s) Oral BID 10/26/19 24 Active torsemide 20 mg tablet RxNorm: 19821114 Take 1 Tablet(s) Oral QD 10/26/19 24 Inactive potassium chloride ER 20 mEq tablet,extended release RxNorm: 19800522 Take 2 Tablet(s) Oral BID 10/26/19 24 Inactive Artificial Tears (PF) 0.1 %-0.3 % drops in a dropperette RxNorm: 369940 Apply 1-2 Drop(s) Both eyes BID as needed 09/28/19 Active erythromycin 5 mg/gram (0.5 %) eye ointment RxNorm: 850181 Apply 1 Application Both eyes QHS every night at bedtime Instill ~1 cm ribbon into affected eye 09/28/19 24 Inactive Artificial Tears (PF) 0.1 %-0.3 % drops in a dropperette RxNorm: 954851 Apply 1-2 Drop(s) Both eyes BID as needed 09/28/19 Inactive erythromycin 5 mg/gram (0.5 %) eye ointment RxNorm: 055479 Apply 1 Application Both eyes QHS every night at bedtime Instill ~1 cm ribbon into affected eye 09/28/19 24 Inactive acetaminophen 500 mg tablet RxNorm: 325962 (MAX APAP:4GM/24HR) Take 1 Tablet(s) Oral TID as needed for pain 09/24/19 Inactive carvedilol 25 mg tablet RxNorm: 157807 Take 1 Tablet(s) Oral QD 09/08/19 24 No Stop Date Active pregabalin 100 mg capsule RxNorm: 758385 Take 1 Capsule(s) Oral QAM every morning 09/07/19 24 024 Inactive rosuvastatin 40 mg tablet RxNorm: 591695 Take 1 Tablet(s) Oral QPM every evening 07/13/19 24 No Stop Date Active ezetimibe 10 mg tablet RxNorm: 648533 Take 1 Tablet(s) Oral QD 07/13/19 24 No Stop Date Active bisacodyl 10 mg rectal suppository RxNorm: 992828 Insert 1 Suppository Rectal QD as needed 07/13/19 24 No Stop Date Active polyethylene glycol 3350 17 gram/dose oral powder RxNorm: 133331 Take 17 Gram(s) Oral BID as needed mix in 4-8ox water 07/13/19 24 No Stop Date Active ketoconazole 2 % shampoo RxNorm: 235265 Apply 1 Application Topical UD as directed 07/13/19 24 No Stop Date Active aripiprazole 15 mg tablet RxNorm: 717629 Take 1/2 Tablet(s) Oral QD 07/13/19 24 024 Inactive Ozempic 1 mg/dose (4 mg/3 mL) subcutaneous pen injector RxNorm: 3813440 Inject 1 Milligram(s) Subcutaneous QW once a week 07/13/19 24 No Stop Date Active Guaifenesin AC 10 mg-100 mg/5 mL oral liquid RxNorm: 940019 Take 10 Milliliter(s) Oral Q4H every four hours as needed 07/13/19 24 No Stop Date Active isosorbide mononitrate ER 60 mg tablet,extended release 24 hr RxNorm: 442291 Take 1 Tablet(s) Oral QD 07/13/19 24 024 Inactive ammonium lactate 12 % topical cream RxNorm: 761961 Apply 1 Application Topical BID 07/13/19 24 No Stop Date Active hydrocortisone 2.5 % topical cream RxNorm: 777087 Apply 1 Application Topical BID as needed 07/13/19 24 No Stop Date Active rosuvastatin 20 mg sprinkle capsule RxNorm: 1645624 Take 1 Capsule(s) Oral QD 07/13/19 24 No Stop Date Active Vascepa 1 gram capsule RxNorm: 6854186 Take 2 Capsule(s) Oral BID 07/13/19 24 No Stop Date Active venlafaxine ER 75 mg capsule,extended release 24 hr RxNorm: 424853 Take 3 Capsule(s) Oral QD 07/13/19 24 No Stop Date Active Basagldestin Enrique U-100 Insulin 100 unit/mL (3 mL) subcutaneous RxNorm: 0253806 Inject 30U SubQ twice daily 07/07/19 24 024 Inactive Please dispense one month supply. Radha Enrique U-100 Insulin 100 unit/mL (3 mL) subcutaneous RxNorm: 8063547 Inject 30U SubQ twice daily 07/07/19 24 024 Inactive Please dispense one month supply. pregabalin 150 mg capsule RxNorm: 726033 Take 1 Capsule(s) Oral QHS every night at bedtime 07/05/19 24 024 Inactive pregabalin 150 mg capsule RxNorm: 874879 Take 1 Capsule(s) Oral QHS every night at bedtime 07/05/19 24 024 Inactive polyethylene glycol 3350 17 gram/dose oral powder RxNorm: 122852 Take 1 Packet Oral QD as needed (1 packet = 17g) mix with 4-8oz of liquid 06/15/19 24 024 Inactive bisacodyl 10 mg rectal suppository RxNorm: 860639 Insert one suppository per rectum once daily as needed for constipation 06/15/19 24 024 Inactive bisacodyl 10 mg rectal suppository RxNorm: 315985 Insert one suppository per rectum once daily as needed for constipation 06/15/19 24 024 Inactive pregabalin 100 mg capsule RxNorm: 452521 Take 1 Capsule(s) Oral QAM every morning 04/27/20 23 024 Inactive Levemir FlexPen 100 unit/mL (3 mL) solution subcutaneous insulin pen RxNorm: 035482 Inject 30 Unit(s) Subcutaneous BID 04/27/20 23 024 Inactive rosuvastatin 40 mg tablet RxNorm: 848418 Take 1 Tablet(s) Oral QPM every evening 04/16/20 23 024 Inactive D/C rosuvastatin 20mg venlafaxine ER 75 mg capsule,extended release 24 hr RxNorm: 869214 Take 3 Capsule(s) Oral QD 04/14/20 23 023 Inactive pregabalin 100 mg capsule RxNorm: 510403 Take 1 Capsule(s) Oral QAM every morning [...] meter clotrimazole 1 % topical cream RxNorm: 484065 Take apply topically to abdominal folds twice daily for 14 days 03/12/20 024 Inactive Ozempic 1 mg/dose (4 mg/3 mL) subcutaneous pen injector RxNorm: 9968814 Inject 1 Milligram(s) Subcutaneous QW once a week 03/11/20 023 Inactive rosuvastatin 20 mg tablet RxNorm: 117618 Take 1 Tablet(s) Oral QD 02/26/20 023 Inactive d/c pravastatin 80mg Ozempic 1 mg/dose (4 mg/3 mL) subcutaneous pen injector RxNorm: 9382928 Inject 1 Milligram(s) Subcutaneous QW once a week 02/20/20 023 Inactive pregabalin 150 mg capsule RxNorm: 446796 Take 1 Capsule(s) Oral HS at bed time 02/19/20 23 023 Inactive pregabalin 100 mg capsule RxNorm: 401388 Take 1 Capsule(s) Oral QAM every morning 02/18/20 023 Inactive venlafaxine ER 75 mg capsule,extended release 24 hr RxNorm: 786585 Take 3 Capsule(s) Oral QD 02/04/20 23 023 Inactive FreeStyle Chema 2 Sensor kit RxNorm: use as directed 02/04/20 023 Inactive FreeStyle Chema 2 Sensor kit RxNorm: use as directed 02/04/20 23 024 Inactive fluconazole 150 mg tablet RxNorm: 195587 Take 1 Tablet(s) Oral on day 3 and on day 6 02/03/20 024 Inactive chlorthalidone 25 mg tablet RxNorm: 902074 Take 1 Tablet(s) Oral QAM every morning 02/03/20 No Stop Date Active venlafaxine ER 150 mg capsule,extended release 24 hr RxNorm: 699116 Take 1 Capsule(s) Oral QD 02/03/20 023 Inactive acetaminophen 500 mg tablet RxNorm: 585475 1 TABLET ORALLY 3 TIMES DAILY (MAX APAP:4GM/24HR) 12/15/19 023 Inactive clotrimazole 1 % topical cream RxNorm: 173183 apply 1g topically to top of feet and in between toes BID 12/09/19 023 Inactive potassium chloride ER 20 mEq tablet,extended release RxNorm: 406738 Take 1 Tablet(s) Oral BID 12/09/19 024 Inactive d/c 20mEq once daily (sent from hospital) nystatin 100,000 unit/gram topical powder RxNorm: 873354 APPLY TO AFFECTED AREAS TOPICALLY 2 TIMES DAILY 11/21/19 024 Inactive Nystop 100,000 unit/gram topical powder RxNorm: 625468 Apply to abd folds, under breasts and L side of groin Topical BID x 14 days, then BID PRN 11/20/19 023 Inactive dx: yeast dermatitis [place] Ultra Strength 4 %-30 %-10 % topical cream RxNorm: 243967 Apply 1 Gram(s) Topical QID PRN to feet and legs for neuropathic pain 11/11/19 024 Inactive clotrimazole 1 % topical cream RxNorm: 745495 Apply 1/2 Gram(s) Topical BID Apply to affected areas of groin, periarea, and abdominal topically 2 times daily 11/10/19 023 Inactive hydrocortisone 2.5 % topical cream RxNorm: 423552 Apply 1/2 Gram(s) Topical BID as needed 11/10/19 024 Inactive Humulin R U-500 (Concentrated) Insulin 500 unit/mL subcutaneous soln RxNorm: 822335 Inject 100 Unit(s) Subcutaneous TID 10/07/19 23 024 Inactive Levemir FlexPen 100 unit/mL (3 mL) solution subcutaneous insulin pen RxNorm: 688477 Inject 30 Unit(s) Subcutaneous BID 10/07/19 023 Inactive Ozempic 0.25 mg or 0.5 mg (2 mg/3 mL) subcutaneous pen injector RxNorm: 0000193 Inject 1/2 Milligram(s) Subcutaneous QW once a week 10/07/19 024 Inactive aripiprazole 15 mg tablet RxNorm: 409807 1/2 TAB (7.5MG) ORALLY DAILY (DX:MAJOR DEPRESSIVE DISORDER) 09/23/19 023 Inactive Lancets,Thin 28 gauge RxNorm: Use 1 as directed QID 09/15/19 024 Inactive Accu-Chek Guide test strips RxNorm: Use 1 Test Strip QID 09/15/19 023 Inactive ok to substitute with any covered alternative test strip torsemide 20 mg tablet RxNorm: 385381 Take 1 Tablet(s) Oral BID 09/09/19 024 Inactive d/c once daily dosing carvedilol 25 mg tablet RxNorm: 105389 Take 1 Tablet(s) Oral QD 08/25/19 024 Inactive pregabalin 150 mg capsule RxNorm: 423486 1 Capsule(s) Oral HS at bed time 08/18/19 023 Inactive pregabalin 100 mg capsule RxNorm: 569469 1 Capsule(s) Oral QAM every morning 08/18/19 023 Inactive carvedilol 25 mg tablet RxNorm: 000116 1 Tablet(s) Oral QD 07/28/19 023 Inactive lisinopril 20 mg tablet RxNorm: 324167 Give 1 Tablet(s) Oral QD 07/28/19 023 Inactive Lyrica 150 mg capsule RxNorm: 551888 Take 1 Capsule(s) Oral QHS every night at bedtime 07/19/19 023 Inactive d/c 100mg dose Diflucan 150 mg tablet RxNorm: 381524 Take 1 Tablet(s) Oral QD repeat on day 3 and 6 07/19/19 23 023 Inactive pregabalin 100 mg capsule RxNorm: 765175 Take 1 Capsule(s) Oral QAM every morning 07/19/19 23 023 Inactive gatifloxacin 0.5 % eye drops RxNorm: 858375 Instill 1 Drop(s) as directed TID Instill 1 drop in to affected eye(s) starting 1 day prior to surgery and continue until gone (do not exceed 4 weeks). 07/13/19 23 023 Inactive carvedilol 25 mg tablet RxNorm: 867737 2 Tablet(s) Oral BID 07/13/19 23 023 Inactive Humulin R Regular U-100 Insulin 100 unit/mL injection solution RxNorm: 297071 85 Unit(s) Injection TID 07/13/19 23 023 Inactive ketorolac 0.5 % eye drops RxNorm: 239725 Instill 1 Drop(s) as directed QID Instill 1 drop into affected eye(s) 4 times daily starting 1 day prior to surgery and continue until gone (do not exceed 4 weeks). 07/13/19 23 023 Inactive Diflucan 150 mg tablet RxNorm: 050101 Take 1 Tablet(s) Oral QD repeat on day 3 and 6 06/30/19 23 023 Inactive Accu-Chek Guide test strips RxNorm: Use 1 Test Strip QID Use 1 test strip to monitor blood glucose 4 times daily and as needed. Dx:E11.42. 06/23/19 23 023 Inactive ok to substitute with any covered alternative test strip dextromethorphan-gu aifenesin 10 mg-100 mg/5 mL oral liquid RxNorm: 095219 Take 10 Milliliter(s) Oral every 4 hours as needed for cough 06/19/19 23 023 Inactive dextromethorphan-gu aifenesin 10 mg-100 mg/5 mL oral liquid RxNorm: 267133 Take 10 Milliliter(s) Oral every 4 hours as needed for cough 06/19/19 23 023 Inactive Lyrica 150 mg capsule RxNorm: 457275 Take 1 Capsule(s) Oral QHS every night at bedtime 06/18/19 023 Inactive d/c 100mg dose aripiprazole 15 mg tablet RxNorm: 232603 1/2 TAB (7.5MG) ORALLY DAILY (DX:MAJOR DEPRESSIVE DISORDER) 06/05/19 023 Inactive pregabalin 100 mg capsule RxNorm: 866823 1 Capsule(s) Oral QAM every morning 06/02/19 023 Inactive Banophen 50 mg capsule RxNorm: 0101024 Take 1 Capsule(s) Oral Q6H every 6 hours as needed 05/19/19 No Stop Date Active Novolog Flexpen U-100 Insulin aspart 100 unit/mL (3 mL) subcutaneous RxNorm: 3025563 Inject 10 Unit(s) Subcutaneous QHS every night at bedtime with nighttime snack 04/08/20 022 Inactive Novolog Flexpen U-100 Insulin aspart 100 unit/mL (3 mL) subcutaneous RxNorm: 4186831 Inject 42 Unit(s) Subcutaneous TID in addition to sliding scale 04/08/20 022 Inactive d/c 36u albuterol sulfate HFA 90 mcg/actuation aerosol inhaler RxNorm: 8421598 Take 2 Puff(s) Inhalation Q4H every four hours as needed as needed for SOB, cough, or wheezing 04/07/20 030 Active Banophen 50 mg capsule RxNorm: 4388669 Take 1 Capsule(s) Oral Q6H every 6 hours as needed 04/06/20 023 Inactive diphenhydramine 50 mg tablet RxNorm: 6941984 Take 1 Tablet(s) Oral Q6H every 6 hours as needed 04/06/20 22 022 Inactive diphenhydramine 50 mg tablet RxNorm: 5024297 1 Tablet(s) Oral Q6H every 6 hours as needed 04/06/20 22 022 Inactive Abilify 15 mg tablet RxNorm: 485726 1/2 Tablet(s) Oral QD 03/10/20 22 023 Inactive Shingrix (PF) 50 mcg/0.5 mL intramuscular suspension, kit RxNorm: 9122688 Administer 1/2 Milliliter(s) Intramuscular QD one time shingrix step 2 ( step 1 given 11/04/21) WITH needle - Nursing please administer upon arrival and once administered post a bridge message with date of administration, extended insurance clerk, expiration date, and lot# so we can update [facility] 02/18/20 22 022 Inactive dispense with needle Shingrix (PF) 50 mcg/0.5 mL intramuscular suspension, kit RxNorm: 8225814 Administer 1/2 Milliliter(s) Intramuscular QD one time shingrix step 2 ( step 1 given 11/04/21) WITH needle - Nursing please administer upon arrival and once administered post a bridge message with date of administration, extended insurance clerk, expiration date, and lot# so we can update [facility] 02/18/20 22 022 Inactive dispense with needle polyethylene glycol 3350 17 gram/dose oral powder RxNorm: 184227 Take 17=1 capful Gram(s) Oral QD mix with 4-8oz of liquid 01/08/20 22 023 Inactive take this in addition to BID prn order Lyrica 100 mg capsule RxNorm: 789936 Take 1 Capsule(s) Oral QAM every morning 01/08/20 22 022 Inactive d/c 50mg dose acetaminophen 500 mg tablet RxNorm: 357245 Take 1 Tablet(s) Oral TID 01/08/20 22 022 Inactive d/c PRN order Lyrica 150 mg capsule RxNorm: 969671 Take 1 Capsule(s) Oral QHS every night at bedtime 01/08/20 22 023 Inactive d/c 100mg dose Abilify 5 mg tablet RxNorm: 748843 Take 1 Tablet(s) Oral QD take 1 tab po QD #30 refill 5 dx: MDD 12/12/19 22 022 Inactive Abilify 5 mg tablet RxNorm: 711120 Take 1 Tablet(s) Oral QD take 1 tab po QD #30 refill 5 dx: MDD 12/12/19 22 022 Inactive Novolog Flexpen U-100 Insulin aspart 100 unit/mL (3 mL) subcutaneous RxNorm: 9398557 Inject 42 Unit(s) Subcutaneous TID in addition to sliding scale 12/10/19 22 022 Inactive d/c 36u chlorthalidone 25 mg tablet RxNorm: 091865 Take 1 Tablet(s) Oral QAM every morning 12/10/19 22 023 Inactive pregabalin 50 mg capsule RxNorm: 773131 Take 1 Capsule(s) Oral QAM every morning 11/12/19 22 022 Inactive tetanus-diphtheria toxoids-Td 2 Lf unit-2 Lf unit/0.5 mL IM suspension RxNorm: 139 Take 0.5 Miscellaneous Intramuscular 11/12/19 22 022 Inactive need tdap - nursing to administer upon arrival pregabalin 50 mg capsule RxNorm: 200139 Take 1 Capsule(s) Oral QAM every morning 10/16/19 22 022 Inactive pregabalin 50 mg capsule RxNorm: 461533 Take 1 Capsule(s) Oral QAM every morning 10/16/19 22 022 Inactive pregabalin 50 mg capsule RxNorm: 438929 1 Capsule(s) Oral QAM every morning 10/15/19 22 022 Inactive Shingrix (PF) 50 mcg/0.5 mL intramuscular suspension, kit RxNorm: 1294459 Administer 1/2 Milliliter(s) Intramuscular one time Nursing please administer upon arrival and once administered post a bridge message with date of administration, extended insurance clerk, expiration date, and lot# so we can update [facility]. 10/09/19 22 022 Inactive shingrix step 1 Shingrix (PF) 50 mcg/0.5 mL intramuscular suspension, kit RxNorm: 3592130 Administer 1/2 Milliliter(s) Intramuscular one time Nursing please administer upon arrival and once administered post a bridge message with date of administration, extended insurance clerk, expiration date, and lot# so we can update [facility]. 10/09/19 22 022 Inactive shingrix step 1 cholecalciferol (vitamin D3) 1,250 mcg (50,000 unit) capsule RxNorm: 126120 Take 1 Capsule(s) Oral QW once a [...] aspart 100 unit/mL (3 mL) subcutaneous RxNorm: 4398208 Inject 10 Unit(s) Subcutaneous QHS every night at bedtime with nighttime snack 10/08/19 22 Inactive Shingrix (PF) 50 mcg/0.5 mL intramuscular suspension, kit RxNorm: 2148507 ADMINISTER 2-DOSE SERIES PER CDC GUIDELINES 10/08/19 22 Active Shingrix (PF) 50 mcg/0.5 mL intramuscular suspension, kit RxNorm: 6242437 ADMINISTER 2-DOSE SERIES PER CDC GUIDELINES 10/08/19 22 Inactive Novolog Flexpen U-100 Insulin aspart 100 unit/mL (3 mL) subcutaneous RxNorm: 2982465 Inject 36 Unit(s) Subcutaneous TID in addition to sliding scale 10/08/19 22 Inactive Novofine Autocover 30 gauge x 1/3 needle RxNorm: Use 1 Miscellaneous UD as directed Use 1 needle as directed to administer insulin 5 times a day Dx:E11.42. 10/03/19 Inactive ok to substitute with any covered alternative pen needle benzoyl peroxide 10 % topical cleanser RxNorm: 929019 Apply 1 Application Topical QD apply to face, wash rinse and dry once daily (may change to QOD if drying) 08/19/19 22 022 Inactive (%covered by insurance) #60ml refill 11 dx: acne benzoyl peroxide 10 % topical cleanser RxNorm: 236701 Apply 1 Application Topical QD apply to face, wash rinse and dry once daily (may change to QOD if drying) 08/19/19 22 022 Inactive (%covered by insurance) #60ml refill 11 dx: acne benzoyl peroxide 10 % topical cleanser RxNorm: 968047 Apply 1 Application Topical QD apply to face, wash rinse and dry once daily (may change to QOD if drying) 08/19/19 22 022 Inactive (%covered by insurance) #60ml refill 11 dx: acne Lyrica 50 mg capsule RxNorm: 446783 Take 1 Capsule(s) Oral QAM every morning Take 1 capsule by mouth once daily 08/19/19 22 022 Inactive benzoyl peroxide 10 % topical cleanser RxNorm: 681463 Apply 1 Application Topical QD apply to face, wash rinse and dry once daily (may change to QOD if drying) 08/19/19 22 022 Inactive (%covered by insurance) #60ml refill 11 dx: acne Lyrica 100 mg capsule RxNorm: 763561 Take 1 Capsule(s) Oral QHS every night at bedtime Take 1 capsule by mouth once daily at bedtime 08/19/19 22 022 Inactive Lyrica 100 mg capsule RxNorm: 771318 Take 1 Capsule(s) Oral QHS every night at bedtime Take 1 capsule by mouth once daily at bedtime 08/16/19 22 Inactive Lyrica 50 mg capsule RxNorm: 860859 Take 1 Capsule(s) Oral QAM every morning Take 1 capsule by mouth once daily 08/16/19 22 022 Inactive Levemir FlexTouch U-100 Insulin 100 unit/mL (3 mL) subcutaneous pen RxNorm: 337164 Inject 86 Unit(s) Subcutaneous BID 08/05/19 22 022 Inactive d/c 83units BID Lyrica 100 mg capsule RxNorm: 122383 Take 1 Capsule(s) Oral QHS every night at bedtime Take 1 capsule by mouth once daily at bedtime 07/14/19 22 022 Inactive Lyrica 50 mg capsule RxNorm: 667651 Take 1 Capsule(s) Oral QAM every morning Take 1 capsule by mouth once daily 07/14/19 22 022 Inactive Levemir FlexTouch U-100 Insulin 100 unit/mL (3 mL) subcutaneous pen RxNorm: 115584 Inject 83 Unit(s) Subcutaneous BID 07/08/19 22 [...] test strip hydralazine 50 mg tablet RxNorm: 372700 Take 1 Tablet(s) Oral QID 05/05/20 21 022 Inactive venlafaxine ER 225 mg tablet,extended release 24 hr RxNorm: 448147 Take 1 Tablet(s) Oral QD 05/05/20 21 021 Inactive venlafaxine ER 225 mg tablet,extended release 24 hr RxNorm: 729578 Take 1 Tablet(s) Oral QD 05/05/20 022 Inactive isosorbide mononitrate ER 30 mg tablet,extended release 24 hr RxNorm: 912360 Take 1 Tablet(s) Oral QD 05/05/20 024 Inactive hydralazine 50 mg tablet RxNorm: 223090 Take 1 Tablet(s) Oral QID 05/05/20 21 021 Inactive aspirin 81 mg tablet,delayed release RxNorm: 526064 Take 1 Tablet(s) Oral QD 03/31/20 022 Inactive Vitamin D2 1,250 mcg (50,000 unit) capsule RxNorm: 3979710 Take 1 Capsule(s) Oral QW once a week x 12 weeks 03/31/20 Inactive Vitamin D2 1,250 mcg (50,000 unit) capsule RxNorm: 5738750 Take 1 Capsule(s) Oral QW once a week 03/31/20 021 Inactive Zetia 10 mg tablet RxNorm: 514225 Take 1 Tablet(s) Oral QD 03/31/20 024 Inactive Zetia 10 mg tablet RxNorm: 725093 Take 1 Tablet(s) Oral QD 03/31/20 021 Inactive hydralazine 25 mg tablet RxNorm: 678753 Take 1 Tablet(s) Oral QID 03/31/20 021 Inactive hydralazine 25 mg tablet RxNorm: 474965 Take 1 Tablet(s) Oral QID 03/31/20 021 Inactive hydralazine 10 mg tablet RxNorm: 209162 Take 1 Tablet(s) Oral QID 03/03/20 021 Inactive cephalexin 500 mg tablet RxNorm: 238533 Take 1 Tablet(s) Oral QID 02/27/20 021 Inactive cephalexin 500 mg tablet RxNorm: 630816 Take 1 Tablet(s) Oral QID 02/27/20 021 Inactive lisinopril 40 mg tablet RxNorm: 816615 Take 1 Tablet(s) Oral QD 02/11/20 023 Inactive Eliquis 5 mg tablet RxNorm: 1967662 Take 1 Tablet(s) Oral BID 01/05/20 21 022 Inactive Eliquis 5 mg tablet RxNorm: 9639606 Take 2 Tablet(s) Oral QD 01/01/20 21 021 Inactive Lyrica 50 mg capsule RxNorm: 325539 Take 1 Capsule(s) Oral QAM every morning 12/24/19 021 Inactive Lyrica 100 mg capsule RxNorm: 829089 Take 1 Capsule(s) Oral QHS every night at bedtime 12/24/19 021 Inactive clotrimazole 1 % topical cream RxNorm: 330174 Apply to right foot and toes Topical BID 12/04/19 21 023 Inactive metoprolol succinate ER 200 mg tablet,extended release 24 hr RxNorm: 122383 Take 1 Tablet(s) Oral QD 12/04/19 023 Inactive ciprofloxacin 500 mg tablet RxNorm: 832433 Take 1 Tablet(s) Oral QD 11/30/19 021 Inactive DX ofloxacin otic drops Accu-Chek Guide test strips RxNorm: USE 1 TO CHECK GLUCOSE 4 TIMES DAILY AND NEEDED 11/15/19 21 023 Inactive Blood Glucose Test strips RxNorm: Use 1 Test Strip QID at PRN 11/05/19 21 023 Inactive E11.42 lisinopril 30 mg tablet RxNorm: 566955 Take 1 Tablet(s) Oral QD 10/30/19 021 Inactive lisinopril 20 mg tablet RxNorm: 083003 Take 1 Tablet(s) Oral QD 10/23/19 021 Inactive lisinopril 20 mg tablet RxNorm: 006895 Take 1 Tablet(s) Oral QD 10/23/19 21 021 Inactive lisinopril 10 mg tablet RxNorm: 643453 Take 1 Tablet(s) Oral QD 10/02/19 21 021 Inactive icosapent ethyl 1 gram capsule RxNorm: 5483202 Take 2 Capsule(s) (2 gm) Oral BID with meals 04/28/ 024 Inactive Okay to dispense one 2gm tab if you have that available. icosapent ethyl 1 gram capsule RxNorm: 7292708 Take 2 Capsule(s) Oral BID 09/12/19 21 021 Inactive Okay to dispense one 2gm tab if you have that available. amlodipine 10 mg tablet RxNorm: 248252 Take 1 Tablet(s) Oral QD 09/04/19 022 Inactive aspirin 81 mg tablet,delayed release RxNorm: 486006 Take 1 Tablet(s) Oral QD 09/04/19 21 021 Inactive Levemir FlexTouch U-100 Insulin 100 unit/mL (3 mL) subcutaneous pen RxNorm: 653354 Inject 150 Unit(s) Subcutaneous BID 09/04/19 022 Inactive venlafaxine ER 150 mg tablet,extended release 24 hr RxNorm: 415426 Take 1 Tablet(s) Oral QD 09/04/19 021 Inactive clotrimazole-betame thasone 1 %-0.05 % topical cream RxNorm: 752839 Apply to rash on red area on left abdomen/chest Topical BID 08/10/19 21 Inactive amlodipine 5 mg tablet RxNorm: 026066 Take 1 Tablet(s) Oral QD 07/31/19 21 021 Inactive cephalexin 500 mg tablet RxNorm: 212853 Take 1 Tablet(s) Oral BID BID - Twice Daily 07/31/19 021 Inactive Start 08/01/20 pantoprazole 40 mg tablet,delayed release RxNorm: 139890 Take 1 Tablet(s) Oral QAM every morning 07/08/19 022 Inactive senna 8.6 mg tablet RxNorm: 006807 Take 1 Tablet(s) Oral QD 07/08/19 022 Inactive carbamazepine 200 mg tablet RxNorm: 245218 Take 1 Tablet(s) Oral BID 07/08/19 022 Inactive clopidogrel 75 mg tablet RxNorm: 456519 Take 1 Tablet(s) Oral QD 07/08/19 021 Inactive Blood Glucose Test strips RxNorm: Use 1 Test Strip QID at PRN 07/08/19 21 021 Inactive E11.42 Novolog Flexpen U-100 Insulin aspart 100 unit/mL (3 mL) subcutaneous RxNorm: 6362202 Administer per sliding scale Milliliter(s) Subcutaneous TID 151-200: 10 u; 201-250: 20 u; 251-300: 30 u; 301-350: 40 u; 351-400: 50 u. 07/08/19 21 022 Inactive lisinopril 5 mg tablet RxNorm: 300878 Take 1 Tablet(s) Oral QD 07/08/19 21 021 Inactive Novolog Flexpen U-100 Insulin aspart 100 unit/mL (3 mL) subcutaneous RxNorm: 0521616 Inject 85 Unit(s) Subcutaneous TID 07/08/19 022 Inactive pravastatin 80 mg tablet RxNorm: 944221 Take 1 Tablet(s) Oral QHS every night at bedtime 07/08/19 023 Inactive clotrimazole 1 % topical cream RxNorm: 472416 Apply to bilateral groin areas Topical BID 07/08/19 022 Inactive metoprolol succinate ER 200 mg tablet,extended release 24 hr RxNorm: 073033 Take 1 Tablet(s) Oral QD 07/08/19 21 021 Inactive Vitamin D3 25 mcg (1,000 unit) tablet RxNorm: 153816 Take 1 Tablet(s) Oral QD 07/08/19 021 Inactive isosorbide dinitrate 30 mg tablet RxNorm: 674985 Take 1 Tablet(s) Oral QD 07/08/19 021 Inactive Levemir FlexTouch U-100 Insulin 100 unit/mL (3 mL) subcutaneous pen RxNorm: 676108 Inject 140 Unit(s) Subcutaneous BID 07/08/19 21 021 Inactive torsemide 20 mg tablet RxNorm: 102756 Take 1 Tablet(s) Oral QD 07/08/19 21 023 Inactive venlafaxine 75 mg tablet RxNorm: 916693 Take 1 Tablet(s) Oral QD 07/08/19 21 021 Inactive acetaminophen 500 mg tablet RxNorm: 509181 Take 1 Tablet(s) Oral TID as needed for headache 06/18/19 21 021 Inactive acetaminophen 500 mg tablet RxNorm: 179054 Take 1 Tablet(s) Oral TID as needed for headache 06/18/19 21 021 Inactive Lyrica 100 mg capsule RxNorm: 872801 Take 1 Capsule(s) Oral QHS every night at bedtime 06/11/19 21 021 Inactive Lyrica 50 mg capsule RxNorm: 060678 Take 1 Capsule(s) Oral QAM every morning 06/10/19 21 021 Inactive hydrocortisone 2.5 % topical cream RxNorm: 193085 Apply to bilateral groin creases Topical BID 05/15/20 20 021 Inactive clotrimazole 1 % topical cream RxNorm: 053706 Apply to bilateral groin areas Topical BID 05/15/20 20 021 Inactive Lyrica 50 mg capsule RxNorm: 552889 Take 1 Capsule(s) Oral QAM every morning 05/14/20 20 020 Inactive Lyrica 100 mg capsule RxNorm: 229578 Take 1 Capsule(s) Oral QHS every night [...] Inactive Nystop 100,000 unit/gram topical powder RxNorm: 673239 Apply to abd folds, under breasts and L side of groin Topical BID x 14 days, then BID PRN 04/08/20 20 Inactive dx: yeast dermatitis Lyrica 100 mg capsule RxNorm: 639183 Take 1 Capsule(s) Oral QHS every night at bedtime 03/13/20 20 Inactive Lyrica 50 mg capsule RxNorm: 262091 Take 1 Capsule(s) Oral QAM every morning 03/13/20 20 Inactive ketoconazole 2 % shampoo RxNorm: 315160 Apply Topical two times a week with showers 03/11/20 20 Inactive cholecalciferol (vitamin D3) 50 mcg (2,000 unit) tablet RxNorm: 011942 Take 1 Tablet(s) Oral QD 03/11/20 20 Inactive Zetia 10 mg tablet RxNorm: 501327 Take 1 Tablet(s) Oral QD 03/07/20 20 Inactive Zetia 10 mg tablet RxNorm: 938054 Take 1 Tablet(s) Oral QD 03/07/20 20 Inactive Lyrica 50 mg capsule RxNorm: 058727 Take 1 Capsule(s) Oral QAM every morning 02/15/20 20 Inactive Lyrica 100 mg capsule RxNorm: 280809 Take 1 Capsule(s) Oral QHS every night at bedtime 02/15/20 20 Inactive Lyrica 100 mg capsule RxNorm: 871854 Take 1 Capsule(s) Oral QHS every night at bedtime 02/15/20 20 Inactive Lyrica 50 mg capsule RxNorm: 228535 Take 1 Capsule(s) Oral QAM every morning 02/15/20 20 Inactive metoprolol succinate ER 200 mg tablet,extended release 24 hr RxNorm: 628520 Take 1 Tablet(s) Oral QD 08/11 Activeloperamide 2 mg capsuleRxNorm: 519433Birv 1 Capsule(s) Oral QID as needed 06/12/2021ctivehydralazine 50 mg tabletRxNorm: 014142Agkx 1 Tablet(s) Oral QID 08/11/2022ctivevenlafaxine ER 75 mg capsule,extended release 24 hrRxNorm: 705970Lmit 3 Capsule(s) Oral QD/Inactivepolyethylene glycol 3350 17 gram/dose oral powderRxNorm: 853099Rsxq 17=1 capful Gram(s) Oral BID as needed mix with 4-8oz of zwdeuc60/27//Inactiveicosapent ethyl 1 gram capsuleRxNorm: 9634695Xjam 2 Capsule(s) (2 gm) Oral BID with meals 10/06//InactiveOkay to dispense one 2gm tab if you have that available.Levemir FlexTouch U-100 Insulin 100 unit/mL (3 mL) subcutaneous pen RxNorm: 028108Kkvvlx 80 Unit(s) Subcutaneous BID07/14//Inactive Novolog Flexpen U-100 Insulin aspart 100 unit/mL (3 mL) subcutaneousRxNorm: 8207736Zoqkpk 30 Unit(s) Subcutaneous TID with meals/Inactive Medication [...] [facility] WPtel: [phone], [address] [id number] [place]ReferralRecords Ibsuqkei14/08/2023Referral: [facility] WPtel: [phone] [facility] [address] [id number]/12/2022Referral: General CardiologyReferralCompleted 1Referral: General PsychologistReferralClosedReferral: General PsychiatristReferralPatient/Family [...] Sister Jyotsna involved in his care cell# [phone] Guardian: Don (tapan met in person 09/01/21), now has Lexii (same group as don)AWV 9.. Lab Schedule: /September*September (CBC with diff, CMP, [...] Martines note from 11.08.2023 at [facility] (follow up 6 months)Colon & Rectal Surgery visit scheduled for 03/08/24 with Matilde Pérez PA-C. 02/08/2024
--- OUTSIDE RECORDS SUMMARY | 2024-02-19 13:17 | XMS_ITS | CCD ---
Author Name Cecilio Duhram ie Address [address] [facility] [address] [place] [address] Phone Organization [facility] Phone Care Team Providers Care Mitten Sewer Name Role Phone Harrison Durham Primary Care Provider Leona vailable Harrison Durham Chronic Care Management U navailable Summary Purpose DataExchange Insurance Providers Payer name Policy type / Coverage type Covered republican ID Effective Begin Date Effective End Date [place] Part B [id number] Unknown Unknown [place] Medicare Part B [id number] Unknown Unknown Family history Sister Brittany Suggs [...] Unknown Shelter 09/03/[address]: 0736576 Non-Smoker / No History of Smoking 09/02/[address]: 177552434 No Alcohol Consum ption 09/02/2020 Allergies, Adverse Reactions, Alerts Substance Reaction Codes Entered Date Inactivated Date Status * NO KNOWN FOOD ALLERGIES Ougkvxs0207/13/2023No Inactive DateActiveLISINOPRILRxNorm: 3225014No Inactive DateActiveMetformin GJrXfcyijy55/28/2020No Inactive DateActive* NO KNOWN ENVIRONMENTAL VYMYIJTQRTovekgj41/27/2024No Inactive DateActive Problems Condition Codes Effective Dates [...] K42.9 ICD-9: 553.105ctiveCallus of heelICD-10: L84 ICD-9: 99319/esolvedGout due to renal impairmentICD-10: M10.30 ICD-9: 274.10010/12/2023esolvedHyperhidrosis of palmsICD-10: L74.512 ICD-9: 705.21010/12/2023esolvedHyperlipidemia, unspecifiedICD-10: E78.5 ICD-9: 272.405esolvedOther fdc (current) drug therapyICD-10: Z79.899 ICD-9: V58.6905esolvedPain [...] tagICD-10: L91.8 ICD-9: 701.904esolvedCoronary artery disease involving stockbridge coronary artery of [place] heart, angina presence unspecifiedICD-10: I25.10 ICD-9: 414.0102ctiveInappropriate sexual behaviorICD-10: Z72.89 ICD-9: 312.8910/ctiveAnnual physical examICD-10: Z00.00 ICD-9: V70.009/ctivePre-op evaluationICD-10: Z01.818 ICD-9: V72.8403/ctiveSecondary hypertensionICD-10: I15.9 ICD-9: 405.9903ctiveDepressionICD-10: F32.9 ICD-9: 83860esolvedDVT (deep venous thrombosis)ICD-10: I82.409 ICD-9: 453.4009esolvedEncounter for [...] to other viral communicable diseasesICD-10: Z20.828 ICD-9: V01.79022220EkluxkrrUqttosqjHpgvwxn90/28/2020ActiveDiabetes mellitus Type 9Yttjapk24/28/2020ActiveAnemia in chronic kidney diseaseICD-10: D63.1 02/12/2020ResolvedHyperlipidemia, unspecifiedICD-10: E78.509Resolved Medications Medication Codes Instructions Start Date Stop Date Status Fill Instructions isosorbide mononitrate ER 60 mg tablet,extended release 24 hr RxNorm: 026813 Take 1 Tablet(s) Oral QD 02/01/20 24 025 Active aripiprazole 15 mg tablet RxNorm: 287922 Take 1/2 Tablet(s) Oral QD 02/01/20 24 025 Active torsemide 20 mg tablet RxNorm: 901402 1 TAB ORALLY DAILY (DX: EDEMA) 01/27/20 24 No Stop Date Active potassium chloride ER 20 mEq tablet,extended release(part/cryst) RxNorm: 6418013 2 TABS (40MEQ) ORALLY TWICE DAILY (DX: HYPOKALEMIA) 01/27/20 24 No Stop Date Active cephalexin 500 mg capsule RxNorm: 449883 Take 1 Capsule(s) Oral QID 12/17/19 24 024 Inactive cephalexin 500 mg capsule RxNorm: 495104 Take 1 Capsule(s) Oral QID 12/17/19 24 Inactive acetaminophen 500 mg tablet RxNorm: 145139 (MAX APAP:4GM/24HR) Take 1 Tablet(s) Oral TID as needed for pain 12/10/19 24 Active torsemide 20 mg tablet RxNorm: 440754 Take 1 Tablet(s) Oral QD 10/26/19 24 Inactive potassium chloride ER 20 mEq tablet,extended release RxNorm: 19800522 Take 2 Tablet(s) Oral BID 10/26/19 24 Active torsemide 20 mg tablet RxNorm: 402648 Take 1 Tablet(s) Oral QD 10/26/19 24 Inactive potassium chloride ER 20 mEq tablet,extended release RxNorm: 19800522 Take 2 Tablet(s) Oral BID 10/26/19 24 Inactive Artificial Tears (PF) 0.1 %-0.3 % drops in a dropperette RxNorm: 720441 Apply 1-2 Drop(s) Both eyes BID as needed 09/28/19 24 Active erythromycin 5 mg/gram (0.5 %) eye ointment RxNorm: 131519 Apply 1 Application Both eyes QHS every night at bedtime Instill ~1 cm ribbon into affected eye 09/28/19 24 Inactive Artificial Tears (PF) 0.1 %-0.3 % drops in a dropperette RxNorm: 551706 Apply 1-2 Drop(s) Both eyes BID as needed 09/28/19 24 Inactive erythromycin 5 mg/gram (0.5 %) eye ointment RxNorm: 854100 Apply 1 Application Both eyes QHS every night at bedtime Instill ~1 cm ribbon into affected eye 09/28/19 24 Inactive acetaminophen 500 mg tablet RxNorm: 409912 (MAX APAP:4GM/24HR) Take 1 Tablet(s) Oral TID as needed for pain 09/24/19 24 Inactive carvedilol 25 mg tablet RxNorm: 471807 Take 1 Tablet(s) Oral QD 09/08/19 24 No Stop Date Active pregabalin 100 mg capsule RxNorm: 512997 Take 1 Capsule(s) Oral QAM every morning 09/07/19 24 024 Inactive rosuvastatin 40 mg tablet RxNorm: 528564 Take 1 Tablet(s) Oral QPM every evening 07/13/19 24 No Stop Date Active ezetimibe 10 mg tablet RxNorm: 662781 Take 1 Tablet(s) Oral QD 07/13/19 24 No Stop Date Active bisacodyl 10 mg rectal suppository RxNorm: 636577 Insert 1 Suppository Rectal QD as needed 07/13/19 24 No Stop Date Active polyethylene glycol 3350 17 gram/dose oral powder RxNorm: 507856 Take 17 Gram(s) Oral BID as needed mix in 4-8ox water 07/13/19 24 No Stop Date Active ketoconazole 2 % shampoo RxNorm: 130881 Apply 1 Application Topical UD as directed 07/13/19 24 No Stop Date Active Ozempic 1 mg/dose (4 mg/3 mL) subcutaneous pen injector RxNorm: 6476425 Inject 1 Milligram(s) Subcutaneous QW once a week 07/13/19 24 No Stop Date Active Guaifenesin AC 10 mg-100 mg/5 mL oral liquid RxNorm: 292343 Take 10 Milliliter(s) Oral Q4H every four hours as needed 07/13/19 24 No Stop Date Active ammonium lactate 12 % topical cream RxNorm: 140877 Apply 1 Application Topical BID 07/13/19 24 No Stop Date Active hydrocortisone 2.5 % topical cream RxNorm: 915942 Apply 1 Application Topical BID as needed 07/13/19 24 No Stop Date Active rosuvastatin 20 mg sprinkle capsule RxNorm: 2180686 Take 1 Capsule(s) Oral QD 07/13/19 24 No Stop Date Active Vascepa 1 gram capsule RxNorm: 6096258 Take 2 Capsule(s) Oral BID 07/13/19 24 No Stop Date Active venlafaxine ER 75 mg capsule,extended release 24 hr RxNorm: 478673 Take 3 Capsule(s) Oral QD 07/13/19 24 No Stop Date Active aripiprazole 15 mg tablet RxNorm: 216494 Take 1/2 Tablet(s) Oral QD 07/13/19 24 024 Inactive isosorbide mononitrate ER 60 mg tablet,extended release 24 hr RxNorm: 920743 Take 1 Tablet(s) Oral QD 07/13/19 24 024 Inactive Basaglar KwikPen U-100 Insulin 100 unit/mL (3 mL) subcutaneous RxNorm: 0750542 Inject 30U SubQ twice daily 07/07/19 24 024 Inactive Please dispense one month supply. Basaglar KwikPen U-100 Insulin 100 unit/mL (3 mL) subcutaneous RxNorm: 0424161 Inject 30U SubQ twice daily 07/07/19 24 024 Inactive Please dispense one month supply. pregabalin 150 mg capsule RxNorm: 221023 Take 1 Capsule(s) Oral QHS every night at bedtime 07/05/19 24 024 Inactive pregabalin 150 mg capsule RxNorm: 170959 Take 1 Capsule(s) Oral QHS every night at bedtime 07/05/19 24 024 Inactive polyethylene glycol 3350 17 gram/dose oral powder RxNorm: 909140 Take 1 Packet Oral QD as needed (1 packet = 17g) mix with 4-8oz of liquid 06/15/19 24 024 Inactive bisacodyl 10 mg rectal suppository RxNorm: 691245 Insert one suppository per rectum once daily as needed for constipation 06/15/19 24 024 Inactive bisacodyl 10 mg rectal suppository RxNorm: 283718 Insert one suppository per rectum once daily as needed for constipation 06/15/19 24 024 Inactive pregabalin 100 mg capsule RxNorm: 973186 Take 1 Capsule(s) Oral QAM every morning 04/27/20 23 024 Inactive Levemir FlexPen 100 unit/mL (3 mL) solution subcutaneous insulin pen RxNorm: 847538 Inject 30 Unit(s) Subcutaneous BID 04/27/20 23 024 Inactive rosuvastatin 40 mg tablet RxNorm: 316177 Take 1 Tablet(s) Oral QPM every evening 04/16/20 23 024 Inactive D/C rosuvastatin 20mg venlafaxine ER 75 mg capsule,extended release 24 hr RxNorm: 774307 Take 3 Capsule(s) Oral QD 04/14/20 23 023 Inactive pregabalin 100 mg capsule RxNorm: 432721 Take 1 Capsule(s) Oral QAM every morning [...] meter clotrimazole 1 % topical cream RxNorm: 453940 Take apply topically to abdominal folds twice daily for 14 days 03/12/20 024 Inactive Ozempic 1 mg/dose (4 mg/3 mL) subcutaneous pen injector RxNorm: 5096336 Inject 1 Milligram(s) Subcutaneous QW once a week 03/11/20 23 023 Inactive rosuvastatin 20 mg tablet RxNorm: 370653 Take 1 Tablet(s) Oral QD 02/26/20 023 Inactive d/c pravastatin 80mg Ozempic 1 mg/dose (4 mg/3 mL) subcutaneous pen injector RxNorm: 4032482 Inject 1 Milligram(s) Subcutaneous QW once a week 02/20/20 23 023 Inactive pregabalin 150 mg capsule RxNorm: 949125 Take 1 Capsule(s) Oral HS at bed time 02/19/20 23 023 Inactive pregabalin 100 mg capsule RxNorm: 595156 Take 1 Capsule(s) Oral QAM every morning 02/18/20 23 023 Inactive venlafaxine ER 75 mg capsule,extended release 24 hr RxNorm: 937319 Take 3 Capsule(s) Oral QD 02/04/20 23 023 Inactive FreeStyle Chema 2 Sensor kit RxNorm: use as directed 02/04/20 23 023 Inactive FreeStyle Chema 2 Sensor kit RxNorm: use as directed 02/04/20 23 024 Inactive fluconazole 150 mg tablet RxNorm: 043907 Take 1 Tablet(s) Oral on day 3 and on day 6 02/03/20 024 Inactive chlorthalidone 25 mg tablet RxNorm: 283891 Take 1 Tablet(s) Oral QAM every morning 02/03/20 No Stop Date Active venlafaxine ER 150 mg capsule,extended release 24 hr RxNorm: 428998 Take 1 Capsule(s) Oral QD 02/03/20 23 023 Inactive acetaminophen 500 mg tablet RxNorm: 473753 1 TABLET ORALLY 3 TIMES DAILY (MAX APAP:4GM/24HR) 12/15/19 23 023 Inactive clotrimazole 1 % topical cream RxNorm: 684478 apply 1g topically to top of feet and in between toes BID 12/09/19 23 023 Inactive potassium chloride ER 20 mEq tablet,extended release RxNorm: 887316 Take 1 Tablet(s) Oral BID 12/09/19 23 024 Inactive d/c 20mEq once daily (sent from hospital) nystatin 100,000 unit/gram topical powder RxNorm: 062526 APPLY TO AFFECTED AREAS TOPICALLY 2 TIMES DAILY 11/21/19 23 024 Inactive Nystop 100,000 unit/gram topical powder RxNorm: 348506 Apply to abd folds, under breasts and L side of groin Topical BID x 14 days, then BID PRN 11/20/19 23 023 Inactive dx: yeast dermatitis Bengay Ultra Strength 4 %-30 %-10 % topical cream RxNorm: 999298 Apply 1 Gram(s) Topical QID PRN to feet and legs for neuropathic pain 11/11/19 23 024 Inactive clotrimazole 1 % topical cream RxNorm: 112999 Apply 1/2 Gram(s) Topical BID Apply to affected areas of groin, periarea, and abdominal topically 2 times daily 11/10/19 23 023 Inactive hydrocortisone 2.5 % topical cream RxNorm: 955287 Apply 1/2 Gram(s) Topical BID as needed 11/10/19 23 024 Inactive Humulin R U-500 (Concentrated) Insulin 500 unit/mL subcutaneous soln RxNorm: 982811 Inject 100 Unit(s) Subcutaneous TID 10/07/19 024 Inactive Levemir FlexPen 100 unit/mL (3 mL) solution subcutaneous insulin pen RxNorm: 843561 Inject 30 Unit(s) Subcutaneous BID 10/07/19 023 Inactive Ozempic 0.25 mg or 0.5 mg (2 mg/3 mL) subcutaneous pen injector RxNorm: 9086153 Inject 1/2 Milligram(s) Subcutaneous QW once a week 10/07/19 024 Inactive aripiprazole 15 mg tablet RxNorm: 732177 1/2 TAB (7.5MG) ORALLY DAILY (DX:MAJOR DEPRESSIVE DISORDER) 09/23/19 023 Inactive Lancets,Thin 28 gauge RxNorm: Use 1 as directed QID 09/15/19 23 024 Inactive Accu-Chek Guide test strips RxNorm: Use 1 Test Strip QID 09/15/19 023 Inactive ok to substitute with any covered alternative test strip torsemide 20 mg tablet RxNorm: 300090 Take 1 Tablet(s) Oral BID 09/09/19 024 Inactive d/c once daily dosing carvedilol 25 mg tablet RxNorm: 939510 Take 1 Tablet(s) Oral QD 08/25/19 024 Inactive pregabalin 150 mg capsule RxNorm: 895922 1 Capsule(s) Oral HS at bed time 08/18/19 023 Inactive pregabalin 100 mg capsule RxNorm: 696213 1 Capsule(s) Oral QAM every morning 08/18/19 023 Inactive carvedilol 25 mg tablet RxNorm: 535181 1 Tablet(s) Oral QD 07/28/19 023 Inactive lisinopril 20 mg tablet RxNorm: 670898 Give 1 Tablet(s) Oral QD 07/28/19 23 023 Inactive Lyrica 150 mg capsule RxNorm: 609260 Take 1 Capsule(s) Oral QHS every night at bedtime 07/19/19 23 023 Inactive d/c 100mg dose Diflucan 150 mg tablet RxNorm: 257156 Take 1 Tablet(s) Oral QD repeat on day 3 and 6 07/19/19 23 023 Inactive pregabalin 100 mg capsule RxNorm: 322957 Take 1 Capsule(s) Oral QAM every morning 07/19/19 23 023 Inactive gatifloxacin 0.5 % eye drops RxNorm: 747024 Instill 1 Drop(s) as directed TID Instill 1 drop in to affected eye(s) starting 1 day prior to surgery and continue until gone (do not exceed 4 weeks). 07/13/19 23 023 Inactive carvedilol 25 mg tablet RxNorm: 777466 2 Tablet(s) Oral BID 07/13/19 23 023 Inactive Humulin R Regular U-100 Insulin 100 unit/mL injection solution RxNorm: 394684 85 Unit(s) Injection TID 07/13/19 23 023 Inactive ketorolac 0.5 % eye drops RxNorm: 322245 Instill 1 Drop(s) as directed QID Instill 1 drop into affected eye(s) 4 times daily starting 1 day prior to surgery and continue until gone (do not exceed 4 weeks). 07/13/19 23 023 Inactive Diflucan 150 mg tablet RxNorm: 745215 Take 1 Tablet(s) Oral QD repeat on day 3 and 6 06/30/19 23 023 Inactive Accu-Chek Guide test strips RxNorm: Use 1 Test Strip QID Use 1 test strip to monitor blood glucose 4 times daily and as needed. Dx:E11.42. 06/23/19 23 023 Inactive ok to substitute with any covered alternative test strip dextromethorphan-gu aifenesin 10 mg-100 mg/5 mL oral liquid RxNorm: 101713 Take 10 Milliliter(s) Oral every 4 hours as needed for cough 06/19/19 23 023 Inactive dextromethorphan-gu aifenesin 10 mg-100 mg/5 mL oral liquid RxNorm: 907925 Take 10 Milliliter(s) Oral every 4 hours as needed for cough 06/19/19 023 Inactive Lyrica 150 mg capsule RxNorm: 735682 Take 1 Capsule(s) Oral QHS every night at bedtime 06/18/19 023 Inactive d/c 100mg dose aripiprazole 15 mg tablet RxNorm: 073209 05/18 TAB (7.5MG) ORALLY DAILY (DX:MAJOR DEPRESSIVE DISORDER) 06/05/19 023 Inactive pregabalin 100 mg capsule RxNorm: 014529 1 Capsule(s) Oral QAM every morning 06/02/19 023 Inactive Banophen 50 mg capsule RxNorm: 0623925 Take 1 Capsule(s) Oral Q6H every 6 hours as needed 05/19/19 No Stop Date Active Novolog Flexpen U-100 Insulin aspart 100 unit/mL (3 mL) subcutaneous RxNorm: 3262864 Inject 10 Unit(s) Subcutaneous QHS every night at bedtime with nighttime snack 04/08/20 022 Inactive Novolog Flexpen U-100 Insulin aspart 100 unit/mL (3 mL) subcutaneous RxNorm: 3040558 Inject 42 Unit(s) Subcutaneous TID in addition to sliding scale 04/08/20 022 Inactive d/c 36u albuterol sulfate HFA 90 mcg/actuation aerosol inhaler RxNorm: 1547176 Take 2 Puff(s) Inhalation Q4H every four hours as needed as needed for SOB, cough, or wheezing 04/07/20 030 Active Banophen 50 mg capsule RxNorm: 3404285 Take 1 Capsule(s) Oral Q6H every 6 hours as needed 04/06/20 023 Inactive diphenhydramine 50 mg tablet RxNorm: 8362134 Take 1 Tablet(s) Oral Q6H every 6 hours as needed 04/06/20 022 Inactive diphenhydramine 50 mg tablet RxNorm: 6131832 1 Tablet(s) Oral Q6H every 6 hours as needed 04/06/20 22 022 Inactive Abilify 15 mg tablet RxNorm: 970359 1/2 Tablet(s) Oral QD 03/10/20 22 023 Inactive Shingrix (PF) 50 mcg/0.5 mL intramuscular suspension, kit RxNorm: 4476359 Administer 1/2 Milliliter(s) Intramuscular QD one time shingrix step 2 ( step 1 given 11/04/21) WITH needle - Nursing please administer upon arrival and once administered post a bridge message with date of administration, warm in worker, expiration date, and lot# so we can update [facility] 02/18/20 22 022 Inactive dispense with needle Shingrix (PF) 50 mcg/0.5 mL intramuscular suspension, kit RxNorm: 0691882 Administer 1/2 Milliliter(s) Intramuscular QD one time shingrix step 2 ( step 1 given 11/04/21) WITH needle - Nursing please administer upon arrival and once administered post a bridge message with date of administration, warm in worker, expiration date, and lot# so we can update [facility] 02/18/20 22 022 Inactive dispense with needle polyethylene glycol 3350 17 gram/dose oral powder RxNorm: 675583 Take 17=1 capful Gram(s) Oral QD mix with 4-8oz of liquid 01/08/20 22 023 Inactive take this in addition to BID prn order Lyrica 100 mg capsule RxNorm: 235914 Take 1 Capsule(s) Oral QAM every morning 01/08/20 22 022 Inactive d/c 50mg dose acetaminophen 500 mg tablet RxNorm: 663246 Take 1 Tablet(s) Oral TID 01/08/20 22 022 Inactive d/c PRN order Lyrica 150 mg capsule RxNorm: 810711 Take 1 Capsule(s) Oral QHS every night at bedtime 01/08/20 22 023 Inactive d/c 100mg dose Abilify 5 mg tablet RxNorm: 399812 Take 1 Tablet(s) Oral QD take 1 tab po QD #30 refill 5 dx: MDD 12/12/19 22 022 Inactive Abilify 5 mg tablet RxNorm: 813344 Take 1 Tablet(s) Oral QD take 1 tab po QD #30 refill 5 dx: MDD 12/12/19 22 022 Inactive Novolog Flexpen U-100 Insulin aspart 100 unit/mL (3 mL) subcutaneous RxNorm: 2329118 Inject 42 Unit(s) Subcutaneous TID in addition to sliding scale 12/10/19 22 022 Inactive d/c 36u chlorthalidone 25 mg tablet RxNorm: 578364 Take 1 Tablet(s) Oral QAM every morning 12/10/19 22 023 Inactive pregabalin 50 mg capsule RxNorm: 727991 Take 1 Capsule(s) Oral QAM every morning 11/12/19 22 022 Inactive tetanus-diphtheria toxoids-Td 2 Lf unit-2 Lf unit/0.5 mL IM suspension RxNorm: 139 Take 0.5 Miscellaneous Intramuscular 11/12/19 022 Inactive need tdap - nursing to administer upon arrival pregabalin 50 mg capsule RxNorm: 365803 Take 1 Capsule(s) Oral QAM every morning 10/16/19 022 Inactive pregabalin 50 mg capsule RxNorm: 542054 Take 1 Capsule(s) Oral QAM every morning 10/16/19 22 022 Inactive pregabalin 50 mg capsule RxNorm: 475132 1 Capsule(s) Oral QAM every morning 10/15/19 22 022 Inactive Shingrix (PF) 50 mcg/0.5 mL intramuscular suspension, kit RxNorm: 8854707 Administer 1/2 Milliliter(s) Intramuscular one time Nursing please administer upon arrival and once administered post a bridge message with date of administration, warm in worker, expiration date, and lot# so we can update [facility]. 10/09/19 22 022 Inactive shingrix step 1 Shingrix (PF) 50 mcg/0.5 mL intramuscular suspension, kit RxNorm: 4345973 Administer 1/2 Milliliter(s) Intramuscular one time Nursing please administer upon arrival and once administered post a bridge message with date of administration, warm in worker, expiration date, and lot# so we can update [facility]. 10/09/19 22 022 Inactive shingrix step 1 cholecalciferol (vitamin D3) 1,250 mcg (50,000 unit) capsule RxNorm: 355910 Take 1 Capsule(s) Oral QW once a [...] aspart 100 unit/mL (3 mL) subcutaneous RxNorm: 4973028 Inject 10 Unit(s) Subcutaneous QHS every night at bedtime with nighttime snack 10/08/19 22 Inactive Shingrix (PF) 50 mcg/0.5 mL intramuscular suspension, kit RxNorm: 1606264 ADMINISTER 2-DOSE SERIES PER CDC GUIDELINES 10/08/19 22 Active Shingrix (PF) 50 mcg/0.5 mL intramuscular suspension, kit RxNorm: 1369376 ADMINISTER 2-DOSE SERIES PER CDC GUIDELINES 10/08/19 22 Inactive Novolog Flexpen U-100 Insulin aspart 100 unit/mL (3 mL) subcutaneous RxNorm: 3744741 Inject 36 Unit(s) Subcutaneous TID in addition to sliding scale 10/08/19 22 Inactive Novofine Autocover 30 gauge x 1/3 needle RxNorm: Use 1 Miscellaneous UD as directed Use 1 needle as directed to administer insulin 5 times a day Dx:E11.42. 10/03/19 Inactive ok to substitute with any covered alternative pen needle benzoyl peroxide 10 % topical cleanser RxNorm: 544634 Apply 1 Application Topical QD apply to face, wash rinse and dry once daily (may change to QOD if drying) 08/19/19 22 Inactive (%covered by insurance) #60ml refill 11 dx: acne benzoyl peroxide 10 % topical cleanser RxNorm: 003265 Apply 1 Application Topical QD apply to face, wash rinse and dry once daily (may change to QOD if drying) 08/19/19 22 022 Inactive (%covered by insurance) #60ml refill 11 dx: acne benzoyl peroxide 10 % topical cleanser RxNorm: 492624 Apply 1 Application Topical QD apply to face, wash rinse and dry once daily (may change to QOD if drying) 08/19/19 22 022 Inactive (%covered by insurance) #60ml refill 11 dx: acne Lyrica 50 mg capsule RxNorm: 794072 Take 1 Capsule(s) Oral QAM every morning Take 1 capsule by mouth once daily 08/19/19 22 022 Inactive benzoyl peroxide 10 % topical cleanser RxNorm: 874886 Apply 1 Application Topical QD apply to face, wash rinse and dry once daily (may change to QOD if drying) 08/19/19 22 022 Inactive (%covered by insurance) #60ml refill 11 dx: acne Lyrica 100 mg capsule RxNorm: 984212 Take 1 Capsule(s) Oral QHS every night at bedtime Take 1 capsule by mouth once daily at bedtime 08/19/19 22 Inactive Lyrica 100 mg capsule RxNorm: 697141 Take 1 Capsule(s) Oral QHS every night at bedtime Take 1 capsule by mouth once daily at bedtime 08/16/19 22 Inactive Lyrica 50 mg capsule RxNorm: 715955 Take 1 Capsule(s) Oral QAM every morning Take 1 capsule by mouth once daily 08/16/19 22 Inactive Levemir FlexTouch U-100 Insulin 100 unit/mL (3 mL) subcutaneous pen RxNorm: 556408 Inject 86 Unit(s) Subcutaneous BID 08/05/19 22 Inactive d/c 83units BID Lyrica 100 mg capsule RxNorm: 735173 Take 1 Capsule(s) Oral QHS every night at bedtime Take 1 capsule by mouth once daily at bedtime 07/14/19 22 022 Inactive Lyrica 50 mg capsule RxNorm: 756754 Take 1 Capsule(s) Oral QAM every morning Take 1 capsule by mouth once daily 07/14/19 Inactive Levemir FlexTouch U-100 Insulin 100 unit/mL (3 mL) subcutaneous pen RxNorm: 716555 Inject 83 Unit(s) Subcutaneous BID 07/08/19 22 [...] test strip hydralazine 50 mg tablet RxNorm: 792216 Take 1 Tablet(s) Oral QID 05/05/20 21 022 Inactive venlafaxine ER 225 mg tablet,extended release 24 hr RxNorm: 149572 Take 1 Tablet(s) Oral QD 05/05/20 21 021 Inactive venlafaxine ER 225 mg tablet,extended release 24 hr RxNorm: 701864 Take 1 Tablet(s) Oral QD 05/05/20 022 Inactive isosorbide mononitrate ER 30 mg tablet,extended release 24 hr RxNorm: 167258 Take 1 Tablet(s) Oral QD 05/05/20 024 Inactive hydralazine 50 mg tablet RxNorm: 990099 Take 1 Tablet(s) Oral QID 05/05/20 21 021 Inactive aspirin 81 mg tablet,delayed release RxNorm: 066511 Take 1 Tablet(s) Oral QD 03/31/20 022 Inactive Vitamin D2 1,250 mcg (50,000 unit) capsule RxNorm: 6444617 Take 1 Capsule(s) Oral QW once a week x 12 weeks 03/31/20 022 Inactive Vitamin D2 1,250 mcg (50,000 unit) capsule RxNorm: 6838537 Take 1 Capsule(s) Oral QW once a week 03/31/20 021 Inactive Zetia 10 mg tablet RxNorm: 320417 Take 1 Tablet(s) Oral QD 03/31/20 024 Inactive Zetia 10 mg tablet RxNorm: 563461 Take 1 Tablet(s) Oral QD 03/31/20 021 Inactive hydralazine 25 mg tablet RxNorm: 309432 Take 1 Tablet(s) Oral QID 03/31/20 21 021 Inactive hydralazine 25 mg tablet RxNorm: 903429 Take 1 Tablet(s) Oral QID 03/31/20 021 Inactive hydralazine 10 mg tablet RxNorm: 227994 Take 1 Tablet(s) Oral QID 03/03/20 021 Inactive cephalexin 500 mg tablet RxNorm: 669942 Take 1 Tablet(s) Oral QID 02/27/20 021 Inactive cephalexin 500 mg tablet RxNorm: 264607 Take 1 Tablet(s) Oral QID 02/27/20 021 Inactive lisinopril 40 mg tablet RxNorm: 519314 Take 1 Tablet(s) Oral QD 02/11/20 023 Inactive Eliquis 5 mg tablet RxNorm: 6830525 Take 1 Tablet(s) Oral BID 01/05/20 21 022 Inactive Eliquis 5 mg tablet RxNorm: 3518152 Take 2 Tablet(s) Oral QD 01/01/20 21 021 Inactive Lyrica 50 mg capsule RxNorm: 563834 Take 1 Capsule(s) Oral QAM every morning 12/24/19 21 021 Inactive Lyrica 100 mg capsule RxNorm: 735851 Take 1 Capsule(s) Oral QHS every night at bedtime 12/24/19 021 Inactive clotrimazole 1 % topical cream RxNorm: 508256 Apply to right foot and toes Topical BID 12/04/19 21 023 Inactive metoprolol succinate ER 200 mg tablet,extended release 24 hr RxNorm: 692945 Take 1 Tablet(s) Oral QD 12/04/19 023 Inactive ciprofloxacin 500 mg tablet RxNorm: 789276 Take 1 Tablet(s) Oral QD 11/30/19 21 021 Inactive DX ofloxacin otic drops Accu-Chek Guide test strips RxNorm: USE 1 TO CHECK GLUCOSE 4 TIMES DAILY AND NEEDED 11/15/19 21 023 Inactive Blood Glucose Test strips RxNorm: Use 1 Test Strip QID at PRN 11/05/19 21 023 Inactive E11.42 lisinopril 30 mg tablet RxNorm: 411079 Take 1 Tablet(s) Oral QD 10/30/19 021 Inactive lisinopril 20 mg tablet RxNorm: 818416 Take 1 Tablet(s) Oral QD 10/23/19 21 021 Inactive lisinopril 20 mg tablet RxNorm: 026584 Take 1 Tablet(s) Oral QD 10/23/19 21 021 Inactive lisinopril 10 mg tablet RxNorm: 047067 Take 1 Tablet(s) Oral QD 10/02/19 21 021 Inactive icosapent ethyl 1 gram capsule RxNorm: 8870796 Take 2 Capsule(s) (2 gm) Oral BID with meals 09/12/19 024 Inactive Okay to dispense one 2gm tab if you have that available. icosapent ethyl 1 gram capsule RxNorm: 3462354 Take 2 Capsule(s) Oral BID 09/12/19 21 021 Inactive Okay to dispense one 2gm tab if you have that available. amlodipine 10 mg tablet RxNorm: 836238 Take 1 Tablet(s) Oral QD 09/04/19 21 022 Inactive aspirin 81 mg tablet,delayed release RxNorm: 059505 Take 1 Tablet(s) Oral QD 09/04/19 21 021 Inactive Levemir FlexTouch U-100 Insulin 100 unit/mL (3 mL) subcutaneous pen RxNorm: 977418 Inject 150 Unit(s) Subcutaneous BID 09/04/19 022 Inactive venlafaxine ER 150 mg tablet,extended release 24 hr RxNorm: 911363 Take 1 Tablet(s) Oral QD 09/04/19 21 021 Inactive clotrimazole-betame thasone 1 %-0.05 % topical cream RxNorm: 262059 Apply to rash on red area on left abdomen/chest Topical BID 08/10/19 21 021 Inactive amlodipine 5 mg tablet RxNorm: 322018 Take 1 Tablet(s) Oral QD 07/31/19 021 Inactive cephalexin 500 mg tablet RxNorm: 115664 Take 1 Tablet(s) Oral BID BID - Twice Daily 07/31/19 21 021 Inactive Start 08/01/20 pantoprazole 40 mg tablet,delayed release RxNorm: 265439 Take 1 Tablet(s) Oral QAM every morning 07/08/19 21 022 Inactive senna 8.6 mg tablet RxNorm: 849800 Take 1 Tablet(s) Oral QD 07/08/19 21 022 Inactive carbamazepine 200 mg tablet RxNorm: 690472 Take 1 Tablet(s) Oral BID 07/08/19 21 022 Inactive clopidogrel 75 mg tablet RxNorm: 736345 Take 1 Tablet(s) Oral QD 07/08/19 021 Inactive Blood Glucose Test strips RxNorm: Use 1 Test Strip QID at PRN 07/08/19 21 Inactive E11.42 Novolog Flexpen U-100 Insulin aspart 100 unit/mL (3 mL) subcutaneous RxNorm: 3025258 Administer per sliding scale Milliliter(s) Subcutaneous TID 151-200: 10 u; 201-250: 20 u; 251-300: 30 u; 301-350: 40 u; 351-400: 50 u. 07/08/19 21 022 Inactive lisinopril 5 mg tablet RxNorm: 973588 Take 1 Tablet(s) Oral QD 07/08/19 21 021 Inactive Novolog Flexpen U-100 Insulin aspart 100 unit/mL (3 mL) subcutaneous RxNorm: 1599915 Inject 85 Unit(s) Subcutaneous TID 07/08/19 022 Inactive pravastatin 80 mg tablet RxNorm: 105115 Take 1 Tablet(s) Oral QHS every night at bedtime 07/08/19 023 Inactive clotrimazole 1 % topical cream RxNorm: 861136 Apply to bilateral groin areas Topical BID 07/08/19 21 022 Inactive metoprolol succinate ER 200 mg tablet,extended release 24 hr RxNorm: 158799 Take 1 Tablet(s) Oral QD 07/08/19 21 021 Inactive Vitamin D3 25 mcg (1,000 unit) tablet RxNorm: 257241 Take 1 Tablet(s) Oral QD 07/08/19 021 Inactive isosorbide dinitrate 30 mg tablet RxNorm: 973627 Take 1 Tablet(s) Oral QD 07/08/19 021 Inactive Levemir FlexTouch U-100 Insulin 100 unit/mL (3 mL) subcutaneous pen RxNorm: 240883 Inject 140 Unit(s) Subcutaneous BID 07/08/19 21 021 Inactive torsemide 20 mg tablet RxNorm: 321258 Take 1 Tablet(s) Oral QD 07/08/19 023 Inactive venlafaxine 75 mg tablet RxNorm: 038392 Take 1 Tablet(s) Oral QD 07/08/19 21 021 Inactive acetaminophen 500 mg tablet RxNorm: 764901 Take 1 Tablet(s) Oral TID as needed for headache 06/18/19 21 021 Inactive acetaminophen 500 mg tablet RxNorm: 981964 Take 1 Tablet(s) Oral TID as needed for headache 06/18/19 21 021 Inactive Lyrica 100 mg capsule RxNorm: 878540 Take 1 Capsule(s) Oral QHS every night at bedtime 06/11/19 21 021 Inactive Lyrica 50 mg capsule RxNorm: 187506 Take 1 Capsule(s) Oral QAM every morning 06/10/19 21 021 Inactive hydrocortisone 2.5 % topical cream RxNorm: 529559 Apply to bilateral groin creases Topical BID 05/15/20 20 021 Inactive clotrimazole 1 % topical cream RxNorm: 490753 Apply to bilateral groin areas Topical BID 05/15/20 20 021 Inactive Lyrica 50 mg capsule RxNorm: 938893 Take 1 Capsule(s) Oral QAM every morning 05/14/20 20 020 Inactive Lyrica 100 mg capsule RxNorm: 979289 Take 1 Capsule(s) Oral QHS every night [...] Inactive Nystop 100,000 unit/gram topical powder RxNorm: 378884 Apply to abd folds, under breasts and L side of groin Topical BID x 14 days, then BID PRN 04/08/20 20 Inactive dx: yeast dermatitis Lyrica 100 mg capsule RxNorm: 418160 Take 1 Capsule(s) Oral QHS every night at bedtime 03/13/20 20 Inactive Lyrica 50 mg capsule RxNorm: 490362 Take 1 Capsule(s) Oral QAM every morning 03/13/20 20 Inactive ketoconazole 2 % shampoo RxNorm: 348140 Apply Topical two times a week with showers 03/11/20 20 Inactive cholecalciferol (vitamin D3) 50 mcg (2,000 unit) tablet RxNorm: 019617 Take 1 Tablet(s) Oral QD 03/11/20 20 021 Inactive Zetia 10 mg tablet RxNorm: 546064 Take 1 Tablet(s) Oral QD 03/07/20 20 021 Inactive Zetia 10 mg tablet RxNorm: 068956 Take 1 Tablet(s) Oral QD 03/07/20 20 Inactive Lyrica 50 mg capsule RxNorm: 552367 Take 1 Capsule(s) Oral QAM every morning 02/15/20 20 Inactive Lyrica 100 mg capsule RxNorm: 358974 Take 1 Capsule(s) Oral QHS every night at bedtime 02/15/20 20 Inactive Lyrica 100 mg capsule RxNorm: 567402 Take 1 Capsule(s) Oral QHS every night at bedtime 02/15/20 20 Inactive Lyrica 50 mg capsule RxNorm: 017953 Take 1 Capsule(s) Oral QAM every morning 02/15/20 20 Inactive metoprolol succinate ER 200 mg tablet,extended release 24 hr RxNorm: 388695 Take 1 Tablet(s) Oral QD 03/28 /2023 Activeloperamide 2 mg capsuleRxNorm: 589302Knfj 1 Capsule(s) Oral QID as needed 06/12/2021ctivehydralazine 50 mg tabletRxNorm: 253707Bwzx 1 Tablet(s) Oral QID 08/11/2022ctivevenlafaxine ER 75 mg capsule,extended release 24 hrRxNorm: 377602Jdsy 3 Capsule(s) Oral QD06/12//Inactivepolyethylene glycol 3350 17 gram/dose oral powderRxNorm: 976732Mrax 17=1 capful Gram(s) Oral BID as needed mix with 4-8oz of caoswd51/27//Inactiveicosapent ethyl 1 gram capsuleRxNorm: 3252596Drzg 2 Capsule(s) (2 gm) Oral BID with meals /InactiveOkay to dispense one 2gm tab if you have that available.Levemir FlexTouch U-100 Insulin 100 unit/mL (3 mL) subcutaneous pen RxNorm: 835868Mebniv 80 Unit(s) Subcutaneous BID07/14//Inactive Novolog Flexpen U-100 Insulin aspart 100 unit/mL (3 mL) subcutaneousRxNorm: 6049682Ybhbjs 30 Unit(s) Subcutaneous TID with meals/Inactive Medication [...] Status Date Patient Education: Patient Medication Summary Ebfxpyffd24/18/2024ppointment: Dianne Munsonzie WPtel: [address] [facility] 300 [id number] USF/U001/11/2024ppointment: Amber Sandra WPtel: [address] [facility] 300 [id number] [facility] Follow Up12/09/2022ppointment: Tapan Shirley WPtel: [address] [facility] 300 [id number] [facility]Referral: [facility] [place] WPtel: [phone] , [address] [id number] USReferralRecords Zxiultrf49/08/2023ppointment: Tapan Shirley WPtel: [address] [facility] 300 [id number] USF/U008/11/2022ppointment: Tapan Shirley WPtel: [address] [facility] 300 [id number] USF/U007/14/2022ppointment: Tapan Shirley WPtel: [address] [facility] 300 [id number] USF/U002/10/2022eferral: [facility] WPtel: [address] [id number] XBQfunaexrRlqxqfzir13/12/2022Referral: General CardiologyReferralCompleted 1Referral: General PsychologistReferralClosedReferral: General PsychiatristReferralPatient/Family [...] Sister Jyotsna involved in his care cell# [phone] Guardian: Giulia (tapan met in person 09/01/21), now has Lexii (same group as giulia)AWV 02.08.2024. Lab Schedule: Mar-/September*September (CBC with diff, [...] Martines note from 11.08.2023 at [facility] [place] (follow up 6 months)Colon & Rectal Surgery visit scheduled for 03/08/24 with Matilde Pérez PA-C. 02/08/2024
--- OUTSIDE RECORDS SUMMARY | 2024-02-19 13:18 | XMS_ITS | CCD ---
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 Associate Sales Name Role Phone Navarro [facility]OT[facility] SPECIALIST-[facility] Primary Care Provider Leona vailable Arpit CHILD PROTECTIVE SERVICES SPECIALIST-C, [facility] U navailable Summary Purpose DataExchange Insurance Providers Payer name Policy type / Coverage type Covered libertarian ID Effective Begin Date Effective End Date [place] Part B [id number] Unknown Unknown [place] Medicare Part B [id number] Unknown Unknown Family history Sister Brittany Suggs [...] Shelter 09/03/[address]: 1833307 Non-Smoker / No History of Smoking 09/02/[address]: 138522011 No Alcohol Consum ption 09/02/2020 Allergies, Adverse Reactions, Alerts Substance Reaction Codes Entered Date Inactivated Date Status * NO KNOWN FOOD ALLERGIES Tletwhu5507/13/2023No Inactive DateActiveLISINOPRILRxNorm: 8939701No Inactive DateActiveMetformin ROuPlbiwur65/28/2020No Inactive DateActive* NO KNOWN ENVIRONMENTAL FMCCQAIGEHhbldhn57/27/2024No Inactive DateActive Problems Condition Codes Effective Dates [...] K42.9 ICD-9: 553.105ctiveCallus of heelICD-10: L84 ICD-9: 12871esolvedGout due to renal impairmentICD-10: M10.30 ICD-9: 274.1005esolvedHyperhidrosis of palmsICD-10: L74.512 ICD-9: 705.2105esolvedHyperlipidemia, unspecifiedICD-10: E78.5 ICD-9: 272.405/esolvedOther manager intermediate (current) drug therapyICD-10: Z79.899 ICD-9: V58.69010/12/2023esolvedPain of [...] tagICD-10: L91.8 ICD-9: 701.904/esolvedCoronary artery disease involving [place] coronary artery of [place] heart, angina presence unspecifiedICD-10: I25.10 ICD-9: 414.0102/ctiveInappropriate sexual behaviorICD-10: Z72.89 ICD-9: 312.8910/ctiveAnnual physical examICD-10: Z00.00 ICD-9: V70.009/ctivePre-op evaluationICD-10: Z01.818 ICD-9: V72.8403/ctiveSecondary hypertensionICD-10: I15.9 ICD-9: 405.9903/ctiveDepressionICD-10: F32.9 ICD-9: 91339/esolvedDVT (deep venous thrombosis)ICD-10: I82.409 ICD-9: 453.4009/esolvedEncounter for [...] to other viral communicable diseasesICD-10: Z20.828 ICD-9: V01.79026421CijgiyzxJsrvpqteVxtykea93/28/2020ActiveDiabetes mellitus Type 6Ezpsvmh58/28/2020ActiveAnemia in chronic kidney diseaseICD-10: D63.1 02/12/2020ResolvedHyperlipidemia, unspecifiedICD-10: E78.Resolved Medications Medication Codes Instructions Start Date Stop Date Status Fill Instructions pregabalin 100 mg capsule RxNorm: 744551 Take 1 Capsule(s) Oral QAM every morning 02/07/20 24 024 Active isosorbide mononitrate ER 60 mg tablet,extended release 24 hr RxNorm: 657504 Take 1 Tablet(s) Oral QD 02/01/20 24 025 Active aripiprazole 15 mg tablet RxNorm: 345372 Take 1/2 Tablet(s) Oral QD 02/01/20 025 Active torsemide 20 mg tablet RxNorm: 998898 1 TAB ORALLY DAILY (DX: EDEMA) 01/27/20 24 No Stop Date Active potassium chloride ER 20 mEq tablet,extended release(part/cryst) RxNorm: 3946771 2 TABS (40MEQ) ORALLY TWICE DAILY (DX: HYPOKALEMIA) 01/27/20 No Stop Date Active cephalexin 500 mg capsule RxNorm: 789529 Take 1 Capsule(s) Oral QID 12/17/19 24 024 Inactive cephalexin 500 mg capsule RxNorm: 901381 Take 1 Capsule(s) Oral QID 12/17/19 24 024 Inactive acetaminophen 500 mg tablet RxNorm: 452023 (MAX APAP:4GM/24HR) Take 1 Tablet(s) Oral TID as needed for pain 12/10/19 24 Active torsemide 20 mg tablet RxNorm: 224490 Take 1 Tablet(s) Oral QD 10/26/19 24 024 Inactive potassium chloride ER 20 mEq tablet,extended release RxNorm: 19800522 Take 2 Tablet(s) Oral BID 10/26/19 24 025 Active torsemide 20 mg tablet RxNorm: 048495 Take 1 Tablet(s) Oral QD 10/26/19 24 024 Inactive potassium chloride ER 20 mEq tablet,extended release RxNorm: 19800522 Take 2 Tablet(s) Oral BID 10/26/19 24 Inactive Artificial Tears (PF) 0.1 %-0.3 % drops in a dropperette RxNorm: 856515 Apply 1-2 Drop(s) Both eyes BID as needed 09/28/19 24 025 Active erythromycin 5 mg/gram (0.5 %) eye ointment RxNorm: 715911 Apply 1 Application Both eyes QHS every night at bedtime Instill ~1 cm ribbon into affected eye 09/28/19 24 024 Inactive Artificial Tears (PF) 0.1 %-0.3 % drops in a dropperette RxNorm: 342806 Apply 1-2 Drop(s) Both eyes BID as needed 09/28/19 24 024 Inactive erythromycin 5 mg/gram (0.5 %) eye ointment RxNorm: 402668 Apply 1 Application Both eyes QHS every night at bedtime Instill ~1 cm ribbon into affected eye 09/28/19 24 024 Inactive acetaminophen 500 mg tablet RxNorm: 050239 (MAX APAP:4GM/24HR) Take 1 Tablet(s) Oral TID as needed for pain 09/24/19 24 024 Inactive carvedilol 25 mg tablet RxNorm: 647444 Take 1 Tablet(s) Oral QD 09/08/19 24 No Stop Date Active pregabalin 100 mg capsule RxNorm: 345687 Take 1 Capsule(s) Oral QAM every morning 09/07/19 24 024 Inactive rosuvastatin 40 mg tablet RxNorm: 412710 Take 1 Tablet(s) Oral QPM every evening 07/13/19 24 No Stop Date Active ezetimibe 10 mg tablet RxNorm: 981427 Take 1 Tablet(s) Oral QD 07/13/19 24 No Stop Date Active bisacodyl 10 mg rectal suppository RxNorm: 841264 Insert 1 Suppository Rectal QD as needed 07/13/19 24 No Stop Date Active polyethylene glycol 3350 17 gram/dose oral powder RxNorm: 000899 Take 17 Gram(s) Oral BID as needed mix in 4-8ox water 07/13/19 24 No Stop Date Active ketoconazole 2 % shampoo RxNorm: 375808 Apply 1 Application Topical UD as directed 07/13/19 24 No Stop Date Active Ozempic 1 mg/dose (4 mg/3 mL) subcutaneous pen injector RxNorm: 8957689 Inject 1 Milligram(s) Subcutaneous QW once a week 07/13/19 24 No Stop Date Active Guaifenesin AC 10 mg-100 mg/5 mL oral liquid RxNorm: 664955 Take 10 Milliliter(s) Oral Q4H every four hours as needed 07/13/19 24 No Stop Date Active ammonium lactate 12 % topical cream RxNorm: 732744 Apply 1 Application Topical BID 07/13/19 24 No Stop Date Active hydrocortisone 2.5 % topical cream RxNorm: 973862 Apply 1 Application Topical BID as needed 07/13/19 24 No Stop Date Active rosuvastatin 20 mg sprinkle capsule RxNorm: 3956391 Take 1 Capsule(s) Oral QD 07/13/19 24 No Stop Date Active Vascepa 1 gram capsule RxNorm: 3960655 Take 2 Capsule(s) Oral BID 07/13/19 24 No Stop Date Active venlafaxine ER 75 mg capsule,extended release 24 hr RxNorm: 733986 Take 3 Capsule(s) Oral QD 07/13/19 24 No Stop Date Active aripiprazole 15 mg tablet RxNorm: 409778 Take 1/2 Tablet(s) Oral QD 07/13/19 24 024 Inactive isosorbide mononitrate ER 60 mg tablet,extended release 24 hr RxNorm: 177961 Take 1 Tablet(s) Oral QD 07/13/19 24 024 Inactive Basaglar KwikPen U-100 Insulin 100 unit/mL (3 mL) subcutaneous RxNorm: 5952249 Inject 30U SubQ twice daily 07/07/19 24 024 Inactive Please dispense one month supply. Basaglar KwikPen U-100 Insulin 100 unit/mL (3 mL) subcutaneous RxNorm: 0409043 Inject 30U SubQ twice daily 07/07/19 24 024 Inactive Please dispense one month supply. pregabalin 150 mg capsule RxNorm: 569156 Take 1 Capsule(s) Oral QHS every night at bedtime 07/05/19 24 024 Inactive pregabalin 150 mg capsule RxNorm: 131759 Take 1 Capsule(s) Oral QHS every night at bedtime 07/05/19 24 024 Inactive polyethylene glycol 3350 17 gram/dose oral powder RxNorm: 329549 Take 1 Packet Oral QD as needed (1 packet = 17g) mix with 4-8oz of liquid 06/15/19 24 024 Inactive bisacodyl 10 mg rectal suppository RxNorm: 189814 Insert one suppository per rectum once daily as needed for constipation 06/15/19 24 024 Inactive bisacodyl 10 mg rectal suppository RxNorm: 362154 Insert one suppository per rectum once daily as needed for constipation 06/15/19 24 024 Inactive pregabalin 100 mg capsule RxNorm: 274204 Take 1 Capsule(s) Oral QAM every morning 04/27/20 23 024 Inactive Levemir FlexPen 100 unit/mL (3 mL) solution subcutaneous insulin pen RxNorm: 730318 Inject 30 Unit(s) Subcutaneous BID 04/27/20 23 024 Inactive rosuvastatin 40 mg tablet RxNorm: 540839 Take 1 Tablet(s) Oral QPM every evening 04/16/20 23 024 Inactive D/C rosuvastatin 20mg venlafaxine ER 75 mg capsule,extended release 24 hr RxNorm: 982784 Take 3 Capsule(s) Oral QD 04/14/20 023 Inactive pregabalin 100 mg capsule RxNorm: 241243 Take 1 Capsule(s) Oral QAM every morning [...] meter clotrimazole 1 % topical cream RxNorm: 979044 Take apply topically to abdominal folds twice daily for 14 days 03/12/20 024 Inactive Ozempic 1 mg/dose (4 mg/3 mL) subcutaneous pen injector RxNorm: 1814558 Inject 1 Milligram(s) Subcutaneous QW once a week 03/11/20 023 Inactive rosuvastatin 20 mg tablet RxNorm: 139447 Take 1 Tablet(s) Oral QD 02/26/20 23 023 Inactive d/c pravastatin 80mg Ozempic 1 mg/dose (4 mg/3 mL) subcutaneous pen injector RxNorm: 3589742 Inject 1 Milligram(s) Subcutaneous QW once a week 02/20/20 23 023 Inactive pregabalin 150 mg capsule RxNorm: 489088 Take 1 Capsule(s) Oral HS at bed time 02/19/20 23 023 Inactive pregabalin 100 mg capsule RxNorm: 239195 Take 1 Capsule(s) Oral QAM every morning 02/18/20 23 023 Inactive venlafaxine ER 75 mg capsule,extended release 24 hr RxNorm: 539289 Take 3 Capsule(s) Oral QD 02/04/20 23 023 Inactive FreeStyle Chema 2 Sensor kit RxNorm: use as directed 02/04/20 23 023 Inactive FreeStyle Chema 2 Sensor kit RxNorm: use as directed 02/04/20 23 024 Inactive fluconazole 150 mg tablet RxNorm: 148812 Take 1 Tablet(s) Oral on day 3 and on day 6 02/03/20 024 Inactive chlorthalidone 25 mg tablet RxNorm: 058545 Take 1 Tablet(s) Oral QAM every morning 02/03/20 No Stop Date Active venlafaxine ER 150 mg capsule,extended release 24 hr RxNorm: 687317 Take 1 Capsule(s) Oral QD 02/03/20 023 Inactive acetaminophen 500 mg tablet RxNorm: 004043 1 TABLET ORALLY 3 TIMES DAILY (MAX APAP:4GM/24HR) 12/15/19 23 023 Inactive clotrimazole 1 % topical cream RxNorm: 122438 apply 1g topically to top of feet and in between toes BID 12/09/19 23 023 Inactive potassium chloride ER 20 mEq tablet,extended release RxNorm: 512232 Take 1 Tablet(s) Oral BID 12/09/19 23 024 Inactive d/c 20mEq once daily (sent from hospital) nystatin 100,000 unit/gram topical powder RxNorm: 986193 APPLY TO AFFECTED AREAS TOPICALLY 2 TIMES DAILY 11/21/19 23 024 Inactive Nystop 100,000 unit/gram topical powder RxNorm: 836067 Apply to abd folds, under breasts and L side of groin Topical BID x 14 days, then BID PRN 11/20/19 23 023 Inactive dx: yeast dermatitis [place] Ultra Strength 4 %-30 %-10 % topical cream RxNorm: 142818 Apply 1 Gram(s) Topical QID PRN to feet and legs for neuropathic pain 11/11/19 23 024 Inactive clotrimazole 1 % topical cream RxNorm: 131240 Apply 1/2 Gram(s) Topical BID Apply to affected areas of groin, periarea, and abdominal topically 2 times daily 11/10/19 23 023 Inactive hydrocortisone 2.5 % topical cream RxNorm: 789377 Apply 1/2 Gram(s) Topical BID as needed 11/10/19 23 024 Inactive Humulin R U-500 (Concentrated) Insulin 500 unit/mL subcutaneous soln RxNorm: 823599 Inject 100 Unit(s) Subcutaneous TID 10/07/19 23 024 Inactive Levemir FlexPen 100 unit/mL (3 mL) solution subcutaneous insulin pen RxNorm: 815221 Inject 30 Unit(s) Subcutaneous BID 10/07/19 23 023 Inactive Ozempic 0.25 mg or 0.5 mg (2 mg/3 mL) subcutaneous pen injector RxNorm: 6593098 Inject 1/2 Milligram(s) Subcutaneous QW once a week 10/07/19 23 024 Inactive aripiprazole 15 mg tablet RxNorm: 672837 1/2 TAB (7.5MG) ORALLY DAILY (DX:MAJOR DEPRESSIVE DISORDER) 09/23/19 023 Inactive Lancets,Thin 28 gauge RxNorm: Use 1 as directed QID 09/15/19 23 024 Inactive Accu-Chek Guide test strips RxNorm: Use 1 Test Strip QID 09/15/19 23 023 Inactive ok to substitute with any covered alternative test strip torsemide 20 mg tablet RxNorm: 305200 Take 1 Tablet(s) Oral BID 09/09/19 024 Inactive d/c once daily dosing carvedilol 25 mg tablet RxNorm: 267183 Take 1 Tablet(s) Oral QD 08/25/19 23 024 Inactive pregabalin 150 mg capsule RxNorm: 834944 1 Capsule(s) Oral HS at bed time 08/18/19 23 023 Inactive pregabalin 100 mg capsule RxNorm: 858039 1 Capsule(s) Oral QAM every morning 08/18/19 23 023 Inactive carvedilol 25 mg tablet RxNorm: 112225 1 Tablet(s) Oral QD 07/28/19 23 023 Inactive lisinopril 20 mg tablet RxNorm: 513375 Give 1 Tablet(s) Oral QD 07/28/19 23 023 Inactive Lyrica 150 mg capsule RxNorm: 529202 Take 1 Capsule(s) Oral QHS every night at bedtime 07/19/19 23 023 Inactive d/c 100mg dose Diflucan 150 mg tablet RxNorm: 660989 Take 1 Tablet(s) Oral QD repeat on day 3 and 6 07/19/19 23 023 Inactive pregabalin 100 mg capsule RxNorm: 761445 Take 1 Capsule(s) Oral QAM every morning 07/19/19 23 023 Inactive gatifloxacin 0.5 % eye drops RxNorm: 300691 Instill 1 Drop(s) as directed TID Instill 1 drop in to affected eye(s) starting 1 day prior to surgery and continue until gone (do not exceed 4 weeks). 07/13/19 23 023 Inactive carvedilol 25 mg tablet RxNorm: 024349 2 Tablet(s) Oral BID 07/13/19 23 023 Inactive Humulin R Regular U-100 Insulin 100 unit/mL injection solution RxNorm: 817159 85 Unit(s) Injection TID 07/13/19 23 023 Inactive ketorolac 0.5 % eye drops RxNorm: 014074 Instill 1 Drop(s) as directed QID Instill 1 drop into affected eye(s) 4 times daily starting 1 day prior to surgery and continue until gone (do not exceed 4 weeks). 07/13/19 23 023 Inactive Diflucan 150 mg tablet RxNorm: 442815 Take 1 Tablet(s) Oral QD repeat on day 3 and 6 06/30/19 23 023 Inactive Accu-Chek Guide test strips RxNorm: Use 1 Test Strip QID Use 1 test strip to monitor blood glucose 4 times daily and as needed. Dx:E11.42. 06/23/19 23 023 Inactive ok to substitute with any covered alternative test strip dextromethorphan-gu aifenesin 10 mg-100 mg/5 mL oral liquid RxNorm: 027297 Take 10 Milliliter(s) Oral every 4 hours as needed for cough 06/19/19 23 023 Inactive dextromethorphan-gu aifenesin 10 mg-100 mg/5 mL oral liquid RxNorm: 654701 Take 10 Milliliter(s) Oral every 4 hours as needed for cough 06/19/19 023 Inactive Lyrica 150 mg capsule RxNorm: 849553 Take 1 Capsule(s) Oral QHS every night at bedtime 06/18/19 023 Inactive d/c 100mg dose aripiprazole 15 mg tablet RxNorm: 882687 1/2 TAB (7.5MG) ORALLY DAILY (DX:MAJOR DEPRESSIVE DISORDER) 06/05/19 023 Inactive pregabalin 100 mg capsule RxNorm: 563068 1 Capsule(s) Oral QAM every morning 06/02/19 023 Inactive Banophen 50 mg capsule RxNorm: 1142882 Take 1 Capsule(s) Oral Q6H every 6 hours as needed 05/19/19 No Stop Date Active Novolog Flexpen U-100 Insulin aspart 100 unit/mL (3 mL) subcutaneous RxNorm: 0277716 Inject 10 Unit(s) Subcutaneous QHS every night at bedtime with nighttime snack 04/08/20 022 Inactive Novolog Flexpen U-100 Insulin aspart 100 unit/mL (3 mL) subcutaneous RxNorm: 6556416 Inject 42 Unit(s) Subcutaneous TID in addition to sliding scale 04/08/20 022 Inactive d/c 36u albuterol sulfate HFA 90 mcg/actuation aerosol inhaler RxNorm: 5111961 Take 2 Puff(s) Inhalation Q4H every four hours as needed as needed for SOB, cough, or wheezing 04/07/20 030 Active Banophen 50 mg capsule RxNorm: 6531222 Take 1 Capsule(s) Oral Q6H every 6 hours as needed 04/06/20 023 Inactive diphenhydramine 50 mg tablet RxNorm: 6065677 Take 1 Tablet(s) Oral Q6H every 6 hours as needed 04/06/20 022 Inactive diphenhydramine 50 mg tablet RxNorm: 1417535 1 Tablet(s) Oral Q6H every 6 hours as needed 04/06/20 022 Inactive Abilify 15 mg tablet RxNorm: 103113 /2 Tablet(s) Oral QD 03/10/2020/2 023 Inactive Shingrix (PF) 50 mcg/0.5 mL intramuscular suspension, kit RxNorm: 0730585 Administer 1/2 Milliliter(s) Intramuscular QD one time shingrix step 2 ( step 1 given 11/04/21) WITH needle - Nursing please administer upon arrival and once administered post a bridge message with date of administration, facility assistant, expiration date, and lot# so we can update [facility] 02/18/20 22 022 Inactive dispense with needle Shingrix (PF) 50 mcg/0.5 mL intramuscular suspension, kit RxNorm: 7809390 Administer 1/2 Milliliter(s) Intramuscular QD one time shingrix step 2 ( step 1 given 11/04/21) WITH needle - Nursing please administer upon arrival and once administered post a bridge message with date of administration, facility assistant, expiration date, and lot# so we can update [facility] 02/18/20 22 022 Inactive dispense with needle polyethylene glycol 3350 17 gram/dose oral powder RxNorm: 121452 Take 17=1 capful Gram(s) Oral QD mix with 4-8oz of liquid 01/08/20 22 023 Inactive take this in addition to BID prn order Lyrica 100 mg capsule RxNorm: 570710 Take 1 Capsule(s) Oral QAM every morning 01/08/20 22 022 Inactive d/c 50mg dose acetaminophen 500 mg tablet RxNorm: 893020 Take 1 Tablet(s) Oral TID 01/08/20 22 022 Inactive d/c PRN order Lyrica 150 mg capsule RxNorm: 197832 Take 1 Capsule(s) Oral QHS every night at bedtime 01/08/20 22 023 Inactive d/c 100mg dose Abilify 5 mg tablet RxNorm: 428158 Take 1 Tablet(s) Oral QD take 1 tab po QD #30 refill 5 dx: MDD 12/12/19 22 022 Inactive Abilify 5 mg tablet RxNorm: 321964 Take 1 Tablet(s) Oral QD take 1 tab po QD #30 refill 5 dx: MDD 12/12/19 22 022 Inactive Novolog Flexpen U-100 Insulin aspart 100 unit/mL (3 mL) subcutaneous RxNorm: 6626406 Inject 42 Unit(s) Subcutaneous TID in addition to sliding scale 12/10/19 22 Inactive d/c 36u chlorthalidone 25 mg tablet RxNorm: 412204 Take 1 Tablet(s) Oral QAM every morning 12/10/19 22 023 Inactive pregabalin 50 mg capsule RxNorm: 869280 Take 1 Capsule(s) Oral QAM every morning 11/12/19 22 022 Inactive tetanus-diphtheria toxoids-Td 2 Lf unit-2 Lf unit/0.5 mL IM suspension RxNorm: 139 Take 0.5 Miscellaneous Intramuscular 11/12/19 Inactive need tdap - nursing to administer upon arrival pregabalin 50 mg capsule RxNorm: 305141 Take 1 Capsule(s) Oral QAM every morning 10/16/19 022 Inactive pregabalin 50 mg capsule RxNorm: 961482 Take 1 Capsule(s) Oral QAM every morning 10/16/19 22 022 Inactive pregabalin 50 mg capsule RxNorm: 288219 1 Capsule(s) Oral QAM every morning 10/15/19 022 Inactive Shingrix (PF) 50 mcg/0.5 mL intramuscular suspension, kit RxNorm: 9058746 Administer 1/2 Milliliter(s) Intramuscular one time Nursing please administer upon arrival and once administered post a bridge message with date of administration, facility assistant, expiration date, and lot# so we can update [facility]. 10/09/19 22 022 Inactive shingrix step 1 Shingrix (PF) 50 mcg/0.5 mL intramuscular suspension, kit RxNorm: 7132301 Administer 1/2 Milliliter(s) Intramuscular one time Nursing please administer upon arrival and once administered post a bridge message with date of administration, facility assistant, expiration date, and lot# so we can update [facility]. 10/09/19 22 022 Inactive shingrix step 1 cholecalciferol (vitamin D3) 1,250 mcg (50,000 unit) capsule RxNorm: 500593 Take 1 Capsule(s) Oral QW once a [...] aspart 100 unit/mL (3 mL) subcutaneous RxNorm: 7102994 Inject 10 Unit(s) Subcutaneous QHS every night at bedtime with nighttime snack 10/08/19 22 Inactive Shingrix (PF) 50 mcg/0.5 mL intramuscular suspension, kit RxNorm: 1331200 ADMINISTER 2-DOSE SERIES PER CDC GUIDELINES 10/08/19 22 Active Shingrix (PF) 50 mcg/0.5 mL intramuscular suspension, kit RxNorm: 7528424 ADMINISTER 2-DOSE SERIES PER CDC GUIDELINES 10/08/19 22 Inactive Novolog Flexpen U-100 Insulin aspart 100 unit/mL (3 mL) subcutaneous RxNorm: 9835583 Inject 36 Unit(s) Subcutaneous TID in addition to sliding scale 10/08/19 22 Inactive Novofine Autocover 30 gauge x 1/3 needle RxNorm: Use 1 Miscellaneous UD as directed Use 1 needle as directed to administer insulin 5 times a day Dx:E11.42. 10/03/19 22 Inactive ok to substitute with any covered alternative pen needle benzoyl peroxide 10 % topical cleanser RxNorm: 193599 Apply 1 Application Topical QD apply to face, wash rinse and dry once daily (may change to QOD if drying) 08/19/19 22 Inactive (%covered by insurance) #60ml refill 11 dx: acne benzoyl peroxide 10 % topical cleanser RxNorm: 724942 Apply 1 Application Topical QD apply to face, wash rinse and dry once daily (may change to QOD if drying) 08/19/19 22 022 Inactive (%covered by insurance) #60ml refill 11 dx: acne benzoyl peroxide 10 % topical cleanser RxNorm: 477192 Apply 1 Application Topical QD apply to face, wash rinse and dry once daily (may change to QOD if drying) 08/19/19 22 022 Inactive (%covered by insurance) #60ml refill 11 dx: acne Lyrica 50 mg capsule RxNorm: 991832 Take 1 Capsule(s) Oral QAM every morning Take 1 capsule by mouth once daily 08/19/19 22 022 Inactive benzoyl peroxide 10 % topical cleanser RxNorm: 085353 Apply 1 Application Topical QD apply to face, wash rinse and dry once daily (may change to QOD if drying) 08/19/19 22 022 Inactive (%covered by insurance) #60ml refill 11 dx: acne Lyrica 100 mg capsule RxNorm: 860186 Take 1 Capsule(s) Oral QHS every night at bedtime Take 1 capsule by mouth once daily at bedtime 08/19/19 22 022 Inactive Lyrica 100 mg capsule RxNorm: 730364 Take 1 Capsule(s) Oral QHS every night at bedtime Take 1 capsule by mouth once daily at bedtime 08/16/19 22 Inactive Lyrica 50 mg capsule RxNorm: 956526 Take 1 Capsule(s) Oral QAM every morning Take 1 capsule by mouth once daily 08/16/19 Inactive Levemir FlexTouch U-100 Insulin 100 unit/mL (3 mL) subcutaneous pen RxNorm: 409357 Inject 86 Unit(s) Subcutaneous BID 08/05/19 22 022 Inactive d/c 83units BID Lyrica 100 mg capsule RxNorm: 664130 Take 1 Capsule(s) Oral QHS every night at bedtime Take 1 capsule by mouth once daily at bedtime 07/14/19 22 022 Inactive Lyrica 50 mg capsule RxNorm: 190145 Take 1 Capsule(s) Oral QAM every morning Take 1 capsule by mouth once daily 07/14/19 Inactive Levemir FlexTouch U-100 Insulin 100 unit/mL (3 mL) subcutaneous pen RxNorm: 832390 Inject 83 Unit(s) Subcutaneous BID 07/08/19 Inactive [...] as directed to administer insulin. Dx:E1142. 06/05/19 Inactive ok to substitute with [...] test strip hydralazine 50 mg tablet RxNorm: 837485 Take 1 Tablet(s) Oral QID 05/05/20 21 022 Inactive venlafaxine ER 225 mg tablet,extended release 24 hr RxNorm: 840957 Take 1 Tablet(s) Oral QD 05/05/20 021 Inactive venlafaxine ER 225 mg tablet,extended release 24 hr RxNorm: 778465 Take 1 Tablet(s) Oral QD 05/05/20 022 Inactive isosorbide mononitrate ER 30 mg tablet,extended release 24 hr RxNorm: 285943 Take 1 Tablet(s) Oral QD 05/05/20 024 Inactive hydralazine 50 mg tablet RxNorm: 125915 Take 1 Tablet(s) Oral QID 05/05/20 21 021 Inactive aspirin 81 mg tablet,delayed release RxNorm: 398067 Take 1 Tablet(s) Oral QD 03/31/20 022 Inactive Vitamin D2 1,250 mcg (50,000 unit) capsule RxNorm: 8826043 Take 1 Capsule(s) Oral QW once a week x 12 weeks 03/31/20 Inactive Vitamin D2 1,250 mcg (50,000 unit) capsule RxNorm: 8693382 Take 1 Capsule(s) Oral QW once a week 03/31/20 021 Inactive Zetia 10 mg tablet RxNorm: 161623 Take 1 Tablet(s) Oral QD 03/31/20 024 Inactive Zetia 10 mg tablet RxNorm: 290496 Take 1 Tablet(s) Oral QD 03/31/20 021 Inactive hydralazine 25 mg tablet RxNorm: 399956 Take 1 Tablet(s) Oral QID 03/31/20 021 Inactive hydralazine 25 mg tablet RxNorm: 427405 Take 1 Tablet(s) Oral QID 03/31/20 021 Inactive hydralazine 10 mg tablet RxNorm: 246950 Take 1 Tablet(s) Oral QID 03/03/20 021 Inactive cephalexin 500 mg tablet RxNorm: 222501 Take 1 Tablet(s) Oral QID 02/27/20 021 Inactive cephalexin 500 mg tablet RxNorm: 118940 Take 1 Tablet(s) Oral QID 02/27/20 021 Inactive lisinopril 40 mg tablet RxNorm: 205749 Take 1 Tablet(s) Oral QD 02/11/20 21 023 Inactive Eliquis 5 mg tablet RxNorm: 7649350 Take 1 Tablet(s) Oral BID 01/05/20 21 022 Inactive Eliquis 5 mg tablet RxNorm: 4578556 Take 2 Tablet(s) Oral QD 01/01/20 21 021 Inactive Lyrica 50 mg capsule RxNorm: 459099 Take 1 Capsule(s) Oral QAM every morning 12/24/19 21 021 Inactive Lyrica 100 mg capsule RxNorm: 631190 Take 1 Capsule(s) Oral QHS every night at bedtime 12/24/19 021 Inactive clotrimazole 1 % topical cream RxNorm: 480934 Apply to right foot and toes Topical BID 12/04/19 21 023 Inactive metoprolol succinate ER 200 mg tablet,extended release 24 hr RxNorm: 236094 Take 1 Tablet(s) Oral QD 12/04/19 21 023 Inactive ciprofloxacin 500 mg tablet RxNorm: 844228 Take 1 Tablet(s) Oral QD 11/30/19 021 Inactive DX ofloxacin otic drops Accu-Chek Guide test strips RxNorm: USE 1 TO CHECK GLUCOSE 4 TIMES DAILY AND NEEDED 11/15/19 023 Inactive Blood Glucose Test strips RxNorm: Use 1 Test Strip QID at PRN 11/05/19 21 023 Inactive E11.42 lisinopril 30 mg tablet RxNorm: 279217 Take 1 Tablet(s) Oral QD 10/30/19 021 Inactive lisinopril 20 mg tablet RxNorm: 712168 Take 1 Tablet(s) Oral QD 10/23/19 21 021 Inactive lisinopril 20 mg tablet RxNorm: 628597 Take 1 Tablet(s) Oral QD 10/23/19 21 021 Inactive lisinopril 10 mg tablet RxNorm: 203384 Take 1 Tablet(s) Oral QD 10/02/19 21 021 Inactive icosapent ethyl 1 gram capsule RxNorm: 2943800 Take 2 Capsule(s) (2 gm) Oral BID with meals 09/12/19 024 Inactive Okay to dispense one 2gm tab if you have that available. icosapent ethyl 1 gram capsule RxNorm: 2060266 Take 2 Capsule(s) Oral BID 09/12/19 021 Inactive Okay to dispense one 2gm tab if you have that available. amlodipine 10 mg tablet RxNorm: 699132 Take 1 Tablet(s) Oral QD 09/04/19 022 Inactive aspirin 81 mg tablet,delayed release RxNorm: 871266 Take 1 Tablet(s) Oral QD 09/04/19 Inactive Levemir FlexTouch U-100 Insulin 100 unit/mL (3 mL) subcutaneous pen RxNorm: 854926 Inject 150 Unit(s) Subcutaneous BID 09/04/19 022 Inactive venlafaxine ER 150 mg tablet,extended release 24 hr RxNorm: 944200 Take 1 Tablet(s) Oral QD 09/04/19 021 Inactive clotrimazole-betame thasone 1 %-0.05 % topical cream RxNorm: 388636 Apply to rash on red area on left abdomen/chest Topical BID 08/10/19 Inactive amlodipine 5 mg tablet RxNorm: 601125 Take 1 Tablet(s) Oral QD 07/31/19 Inactive cephalexin 500 mg tablet RxNorm: 761234 Take 1 Tablet(s) Oral BID BID - Twice Daily 07/31/19 021 Inactive Start 08/01/20 pantoprazole 40 mg tablet,delayed release RxNorm: 783546 Take 1 Tablet(s) Oral QAM every morning 07/08/19 022 Inactive senna 8.6 mg tablet RxNorm: 387606 Take 1 Tablet(s) Oral QD 07/08/19 022 Inactive carbamazepine 200 mg tablet RxNorm: 016818 Take 1 Tablet(s) Oral BID 07/08/19 022 Inactive clopidogrel 75 mg tablet RxNorm: 169043 Take 1 Tablet(s) Oral QD 07/08/19 21 021 Inactive Blood Glucose Test strips RxNorm: Use 1 Test Strip QID at PRN 07/08/19 21 021 Inactive E11.42 Novolog Flexpen U-100 Insulin aspart 100 unit/mL (3 mL) subcutaneous RxNorm: 7653470 Administer per sliding scale Milliliter(s) Subcutaneous TID 151-200: 10 u; 201-250: 20 u; 251-300: 30 u; 301-350: 40 u; 351-400: 50 u. 07/08/19 21 022 Inactive lisinopril 5 mg tablet RxNorm: 508397 Take 1 Tablet(s) Oral QD 07/08/19 21 021 Inactive Novolog Flexpen U-100 Insulin aspart 100 unit/mL (3 mL) subcutaneous RxNorm: 3239857 Inject 85 Unit(s) Subcutaneous TID 07/08/19 022 Inactive pravastatin 80 mg tablet RxNorm: 891400 Take 1 Tablet(s) Oral QHS every night at bedtime 07/08/19 023 Inactive clotrimazole 1 % topical cream RxNorm: 990140 Apply to bilateral groin areas Topical BID 07/08/19 022 Inactive metoprolol succinate ER 200 mg tablet,extended release 24 hr RxNorm: 368123 Take 1 Tablet(s) Oral QD 07/08/19 21 021 Inactive Vitamin D3 25 mcg (1,000 unit) tablet RxNorm: 319860 Take 1 Tablet(s) Oral QD 07/08/19 021 Inactive isosorbide dinitrate 30 mg tablet RxNorm: 681061 Take 1 Tablet(s) Oral QD 07/08/19 21 021 Inactive Levemir FlexTouch U-100 Insulin 100 unit/mL (3 mL) subcutaneous pen RxNorm: 853107 Inject 140 Unit(s) Subcutaneous BID 07/08/19 21 021 Inactive torsemide 20 mg tablet RxNorm: 719799 Take 1 Tablet(s) Oral QD 07/08/19 21 023 Inactive venlafaxine 75 mg tablet RxNorm: 867344 Take 1 Tablet(s) Oral QD 07/08/19 21 021 Inactive acetaminophen 500 mg tablet RxNorm: 871048 Take 1 Tablet(s) Oral TID as needed for headache 06/18/19 21 021 Inactive acetaminophen 500 mg tablet RxNorm: 766669 Take 1 Tablet(s) Oral TID as needed for headache 06/18/19 21 021 Inactive Lyrica 100 mg capsule RxNorm: 014866 Take 1 Capsule(s) Oral QHS every night at bedtime 06/11/19 21 021 Inactive Lyrica 50 mg capsule RxNorm: 769107 Take 1 Capsule(s) Oral QAM every morning 06/10/19 21 021 Inactive hydrocortisone 2.5 % topical cream RxNorm: 503194 Apply to bilateral groin creases Topical BID 05/15/20 20 021 Inactive clotrimazole 1 % topical cream RxNorm: 194885 Apply to bilateral groin areas Topical BID 05/15/20 20 021 Inactive Lyrica 50 mg capsule RxNorm: 696667 Take 1 Capsule(s) Oral QAM every morning 05/14/20 20 020 Inactive Lyrica 100 mg capsule RxNorm: 075607 Take 1 Capsule(s) Oral QHS every night [...] Inactive Nystop 100,000 unit/gram topical powder RxNorm: 051663 Apply to abd folds, under breasts and L side of groin Topical BID x 14 days, then BID PRN 04/08/20 20 Inactive dx: yeast dermatitis Lyrica 100 mg capsule RxNorm: 569228 Take 1 Capsule(s) Oral QHS every night at bedtime 03/13/20 20 Inactive Lyrica 50 mg capsule RxNorm: 338080 Take 1 Capsule(s) Oral QAM every morning 03/13/20 20 Inactive ketoconazole 2 % shampoo RxNorm: 428721 Apply Topical two times a week with showers 03/11/20 20 Inactive cholecalciferol (vitamin D3) 50 mcg (2,000 unit) tablet RxNorm: 814320 Take 1 Tablet(s) Oral QD 03/11/20 20 Inactive Zetia 10 mg tablet RxNorm: 353805 Take 1 Tablet(s) Oral QD 03/07/20 20 021 Inactive Zetia 10 mg tablet RxNorm: 705641 Take 1 Tablet(s) Oral QD 03/07/20 20 Inactive Lyrica 50 mg capsule RxNorm: 805502 Take 1 Capsule(s) Oral QAM every morning 02/15/20 20 Inactive Lyrica 100 mg capsule RxNorm: 964054 Take 1 Capsule(s) Oral QHS every night at bedtime 02/15/20 20 Inactive Lyrica 100 mg capsule RxNorm: 282714 Take 1 Capsule(s) Oral QHS every night at bedtime 02/15/20 20 Inactive Lyrica 50 mg capsule RxNorm: 679563 Take 1 Capsule(s) Oral QAM every morning 02/15/20 20 Inactive metoprolol succinate ER 200 mg tablet,extended release 24 hr RxNorm: 388256 Take 1 Tablet(s) Oral QD 08/11 Activeloperamide 2 mg capsuleRxNorm: 635397Exjf 1 Capsule(s) Oral QID as needed 06/12/2021ctivehydralazine 50 mg tabletRxNorm: 945172Hita 1 Tablet(s) Oral QID 08/11/2022ctivevenlafaxine ER 75 mg capsule,extended release 24 hrRxNorm: 233954Oiss 3 Capsule(s) Oral QD/Inactivepolyethylene glycol 3350 17 gram/dose oral powderRxNorm: 952316Zoym 17=1 capful Gram(s) Oral BID as needed mix with 4-8oz of wbufng09/Inactiveicosapent ethyl 1 gram capsuleRxNorm: 3049861Lehq 2 Capsule(s) (2 gm) Oral BID with meals /InactiveOkay to dispense one 2gm tab if you have that available.Levemir FlexTouch U-100 Insulin 100 unit/mL (3 mL) subcutaneous pen RxNorm: 453837Hlvpaj 80 Unit(s) Subcutaneous BID/Inactive Novolog Flexpen U-100 Insulin aspart 100 unit/mL (3 mL) subcutaneousRxNorm: 8935254Dixeva 30 Unit(s) Subcutaneous TID with meals/Inactive Medication [...] [facility] WPtel: [address] [id number] USReferralRecords [id number]/08/2023Referral: [facility] WPtel: [address] [id number]/12/2022Referral: General CardiologyReferralCompleted 1Referral: General PsychologistReferralClosedReferral: General PsychiatristReferralPatient/Family [...] Sister Jyotsna involved in his care cell# [phone] Guardian: Don (tapan met in person 09/01/21), now has Lexii (same group as don)AWV 9..2023. Lab Schedule: /September*September (CBC with diff, CMP, A1c) March: (CBC, CMP, A1c, Lipids, VitD)5.: CBC, CMP Na 139, K2.6L, creat 1.45H, eGFR 54L, BG 513H, A1c, VitD 32. 6.: BMP Na 140, K3.7, BG 397 H. BUN 24H, Creat 1.09, eGFR 76L. 6.: ER labs CBC, CMP K 3.9 Creat 1.0 eGFR 84 BG 395H6.19.2024: CT scan umbilical hernia and pulmonary nodule (solid 4 mm LLL and LLL calcified granuloma) will need CT scan w/o contrast in 1 year to monitor growth (due )Dr. Martines note from 11.08.2023 at [facility] (follow up 6 months)Colon & Rectal Surgery visit scheduled for 03/08/24 with Matilde Pérez PA-C. 02/08/2024
--- OUTSIDE RECORDS SUMMARY | 2024-02-19 13:19 | XMS_ITS | CCD ---
Author Name Cecilio Durham ie Address [address] [facility] [address] [place] [address] Phone Organization [facility] Phone Care Team Providers Care Human Resources Project Coordinator Name Role Phone Arpit MENDOZA Harrison Primary Care Provider Leona vailable Arpit ARLENParker Harrison Chronic Care Management U navailable Summary Purpose DataExchange Insurance Providers Payer name Policy type / Coverage type Covered republican ID Effective Begin Date Effective End Date [place] Part B [id number] Unknown Unknown [place] Medicare Part B [id number] Unknown Unknown Family history Sister Brittany Suggs Diagnosis Age At Onset No Family Disease Entered N/A Runs in the family Diagnosis Age At Onset No Known Diseases N/A Sister Blanka Mcduffie Diagnosis Age At Onset No Family Disease Entered N/A Social History Social History Element Codes Description Effec tive Dates Tobacco history SNOMED CT: 207698879 Never smoker 01/16 Sexually Active? Unknown No 02/08/2024 Children Unknown No Children 02/08/2024 Patient Health Status Self Assessment Unknown Fair 02/08/2024 Oral health Unknown Has not seen Den shart in the last 12 months 02/08/2024 Do you worry about access to food? Unknown No 02/08/2024 Seatbelt safety Unknown Wears seatbelt 02/08/2024 Illicit Drug History Unknown Has never u sed illegal drugs 02/08/2024 Do you feel safe in your home? Unknown Yes 02/08/2024 Marital status Unknown Single 10/07/2021 Living arrangements Unknown Nursing Home 09/03/[address]: 016548970 No Alcohol Consum ption 09/02/2020 Allergies, Adverse Reactions, Alerts Substance Reaction Codes Entered Date Inactivated Date Status * NO KNOWN FOOD ALLERGIES Pdiswyp5507/13/2023No Inactive DateActiveLISINOPRILRxNorm: 8400675No Inactive DateActiveMetformin JJlBqhtvrf93/28/2020No Inactive DateActive* NO KNOWN ENVIRONMENTAL ZPIKIXVJADohbwck49/27/2024No Inactive DateActive Problems Condition Codes Effective Dates Condition St atus Advanced care planning - to document end of life discussions Unknown 02/08/2024 Active Advance care planning ICD-10: Z71.89 ICD-9: V65.4909ctiveAmputated toe of right footICD-10: S98.131A ICD-9: 895.009ctiveAnnual physical examICD-10: Z00.00 ICD-9: V70.009ctiveBMI 60.0-69.9, adultICD-10: Z68.44 ICD-9: V85.4409ctiveCandidal intertrigoICD-10: B37.2 ICD-9: 112.309/ctiveConstipation by delayed colonic transitICD-10: K59.01 ICD-9: 564.0109ctiveDiabetic neuropathy associated with type 2 diabetes mellitusICD-10: E11.40 ICD-9: 250.6009ctiveHistory of anemia due to CKDICD-10: N18.9 ICD-9: 585.909ctiveHx of deep venous thrombosisICD-10: Z86.718 ICD-9: V12.5109ctiveHypercoagulable stateICD-10: D68.59 ICD-9: 289.8109/ctiveHyperlipidemia associated with type 2 diabetes mellitusICD-10: E11.69 ICD-9: 250.8009ctiveHypertensive heart disease without heart failure ICD-10: I11.9 ICD-9: 402.9009ctiveHypokalemiaICD-10: E87.6 ICD-9: 276.809/ctiveLearning disabilityICD-10: F81.9 ICD-9: 315.209ctiveLow [...] E11.42 ICD-9: 250.6009/ctiveVitamin D deficiencyICD-10: E55.9 ICD-9: 268.909ctiveCallus of heelICD-10: L84 ICD-9: 84258/esolvedGout due to renal impairmentICD-10: M10.30 ICD-9: 274.10054ResolvedHyperhidrosis of palmsICD-10: L74.512 ICD-9: 705.2105esolvedHyperlipidemia, unspecifiedICD-10: E78.5 ICD-9: 272.405/28/2024ResolvedOther director long term care (current) drug therapyICD-10: Z79.899 ICD-9: V58.6905/esolvedPain of right heelICD-10: M79.671 ICD-9: 729.505/esolvedStage 2 chronic kidney diseaseICD-10: N18.2 ICD-9: 585.205esolvedTinea pedis of both feetICD-10: B35.3 ICD-9: 110.405esolvedRecurrent major depressive disorder, in partial remissionICD-10: F33.41 ICD-9: 296.3504/ctiveCellulitisICD-10: L03.90 ICD-9: 682.9009/07/2023esolvedDandruff in adultICD-10: L21.0 ICD-9: 690.1804/esolvedEncounter for other specified special examinationsICD-10: Z01.89 ICD-9: V72.8504/esolvedEncounter for screening for nutritional disorder ICD-10: Z13.21 ICD-9: V77.9904/esolvedImpacted cerumen, left earICD-10: H61.22 ICD-9: 380.404esolvedShortness of breathICD-10: R06.02 ICD-9: 786.0504/esolvedSkin tagICD-10: L91.8 ICD-9: 701.904esolvedCoronary artery disease involving upper sioux coronary artery of upper sioux heart, angina presence unspecifiedICD-10: I25.10 ICD-9: 414.0102/ctiveInappropriate sexual behaviorICD-10: Z72.89 ICD-9: 312.8910/ctivePre-op evaluationICD-10: Z01.818 ICD-9: V72.8403/ctiveSecondary hypertensionICD-10: I15.9 ICD-9: 405.9903/ctiveDepressionICD-10: F32.9 ICD-9: 89916/2ResolvedDVT (deep venous thrombosis)ICD-10: I82.409 ICD-9: 453.40092ResolvedEncounter for immunizationICD-10: Z23 ICD-9: V03.8909/2ResolvedLong term (current) [...] to other viral communicable diseasesICD-10: Z20.828 ICD-9: V01.79029942JcnjiqdcCymwzajwQczfhlw27/28/2020ActiveDiabetes mellitus Type 1Bfisjoh35/28/2020ActiveAnemia in chronic kidney diseaseICD-10: D63.1 02/12/2020ResolvedHyperlipidemia, unspecifiedICD-10: E78.Resolved Medications Medication Codes Instructions Start Date Stop Date Status Fill Instructions pregabalin 100 mg capsule RxNorm: 635964 Take 1 Capsule(s) Oral QAM every morning 02/07/20 24 05/06/ 024 Active isosorbide mononitrate ER 60 mg tablet,extended release 24 hr RxNorm: 784733 Take 1 Tablet(s) Oral QD 02/01/20 24 025 Active aripiprazole 15 mg tablet RxNorm: 005184 Take 1/2 Tablet(s) Oral QD 02/01/20 24 Active torsemide 20 mg tablet RxNorm: 449919 1 TAB ORALLY DAILY (DX: EDEMA) 01/27/20 No Stop Date Active potassium chloride ER 20 mEq tablet,extended release(part/cryst) RxNorm: 8197089 2 TABS (40MEQ) ORALLY TWICE DAILY (DX: HYPOKALEMIA) 01/27/20 No Stop Date Active cephalexin 500 mg capsule RxNorm: 779354 Take 1 Capsule(s) Oral QID 12/17/19 24 024 Inactive cephalexin 500 mg capsule RxNorm: 802776 Take 1 Capsule(s) Oral QID 12/17/19 24 024 Inactive acetaminophen 500 mg tablet RxNorm: 731813 (MAX APAP:4GM/24HR) Take 1 Tablet(s) Oral TID as needed for pain 12/10/19 24 024 Active torsemide 20 mg tablet RxNorm: 988891 Take 1 Tablet(s) Oral QD 10/26/19 24 024 Inactive potassium chloride ER 20 mEq tablet,extended release RxNorm: 564464 Take 2 Tablet(s) Oral BID 10/26/19 24 025 Active torsemide 20 mg tablet RxNorm: 227867 Take 1 Tablet(s) Oral QD 10/26/19 24 024 Inactive potassium chloride ER 20 mEq tablet,extended release RxNorm: 950548 Take 2 Tablet(s) Oral BID 10/26/19 24 024 Inactive Artificial Tears (PF) 0.1 %-0.3 % drops in a dropperette RxNorm: 898797 Apply 1-2 Drop(s) Both eyes BID as needed 09/28/19 24 Active erythromycin 5 mg/gram (0.5 %) eye ointment RxNorm: 108602 Apply 1 Application Both eyes QHS every night at bedtime Instill ~1 cm ribbon into affected eye 09/28/19 24 024 Inactive Artificial Tears (PF) 0.1 %-0.3 % drops in a dropperette RxNorm: 258508 Apply 1-2 Drop(s) Both eyes BID as needed 09/28/19 24 Inactive erythromycin 5 mg/gram (0.5 %) eye ointment RxNorm: 102728 Apply 1 Application Both eyes QHS every night at bedtime Instill ~1 cm ribbon into affected eye 09/28/19 24 Inactive acetaminophen 500 mg tablet RxNorm: 725403 (MAX APAP:4GM/24HR) Take 1 Tablet(s) Oral TID as needed for pain 09/24/19 24 Inactive carvedilol 25 mg tablet RxNorm: 852817 Take 1 Tablet(s) Oral QD 09/08/19 24 No Stop Date Active pregabalin 100 mg capsule RxNorm: 192680 Take 1 Capsule(s) Oral QAM every morning 09/07/19 24 Inactive rosuvastatin 40 mg tablet RxNorm: 424267 Take 1 Tablet(s) Oral QPM every evening 07/13/19 24 No Stop Date Active ezetimibe 10 mg tablet RxNorm: 225749 Take 1 Tablet(s) Oral QD 07/13/19 24 No Stop Date Active bisacodyl 10 mg rectal suppository RxNorm: 276484 Insert 1 Suppository Rectal QD as needed 07/13/19 24 No Stop Date Active polyethylene glycol 3350 17 gram/dose oral powder RxNorm: 209689 Take 17 Gram(s) Oral BID as needed mix in 4-8ox water 07/13/19 24 No Stop Date Active ketoconazole 2 % shampoo RxNorm: 732285 Apply 1 Application Topical UD as directed 07/13/19 24 No Stop Date Active Ozempic 1 mg/dose (4 mg/3 mL) subcutaneous pen injector RxNorm: 4714551 Inject 1 Milligram(s) Subcutaneous QW once a week 07/13/19 24 No Stop Date Active Guaifenesin AC 10 mg-100 mg/5 mL oral liquid RxNorm: 552701 Take 10 Milliliter(s) Oral Q4H every four hours as needed 07/13/19 24 No Stop Date Active ammonium lactate 12 % topical cream RxNorm: 572063 Apply 1 Application Topical BID 07/13/19 24 No Stop Date Active hydrocortisone 2.5 % topical cream RxNorm: 534624 Apply 1 Application Topical BID as needed 07/13/19 24 No Stop Date Active rosuvastatin 20 mg sprinkle capsule RxNorm: 0928683 Take 1 Capsule(s) Oral QD 07/13/19 24 No Stop Date Active Vascepa 1 gram capsule RxNorm: 4168199 Take 2 Capsule(s) Oral BID 07/13/19 24 No Stop Date Active venlafaxine ER 75 mg capsule,extended release 24 hr RxNorm: 901898 Take 3 Capsule(s) Oral QD 07/13/19 24 No Stop Date Active aripiprazole 15 mg tablet RxNorm: 328941 Take 1/2 Tablet(s) Oral QD 07/13/19 24 024 Inactive isosorbide mononitrate ER 60 mg tablet,extended release 24 hr RxNorm: 265583 Take 1 Tablet(s) Oral QD 07/13/19 24 024 Inactive Basaglar KwikPen U-100 Insulin 100 unit/mL (3 mL) subcutaneous RxNorm: 2446477 Inject 30U SubQ twice daily 07/07/19 24 024 Inactive Please dispense one month supply. Basaglar KwikPen U-100 Insulin 100 unit/mL (3 mL) subcutaneous RxNorm: 0245968 Inject 30U SubQ twice daily 07/07/19 24 024 Inactive Please dispense one month supply. pregabalin 150 mg capsule RxNorm: 705488 Take 1 Capsule(s) Oral QHS every night at bedtime 07/05/19 24 024 Inactive pregabalin 150 mg capsule RxNorm: 793955 Take 1 Capsule(s) Oral QHS every night at bedtime 07/05/19 24 024 Inactive polyethylene glycol 3350 17 gram/dose oral powder RxNorm: 742662 Take 1 Packet Oral QD as needed (1 packet = 17g) mix with 4-8oz of liquid 06/15/19 24 024 Inactive bisacodyl 10 mg rectal suppository RxNorm: 588301 Insert one suppository per rectum once daily as needed for constipation 06/15/19 024 Inactive bisacodyl 10 mg rectal suppository RxNorm: 458268 Insert one suppository per rectum once daily as needed for constipation 06/15/19 024 Inactive pregabalin 100 mg capsule RxNorm: 374021 Take 1 Capsule(s) Oral QAM every morning 04/27/20 024 Inactive Levemir FlexPen 100 unit/mL (3 mL) solution subcutaneous insulin pen RxNorm: 265325 Inject 30 Unit(s) Subcutaneous BID 04/27/20 024 Inactive rosuvastatin 40 mg tablet RxNorm: 209332 Take 1 Tablet(s) Oral QPM every evening 04/16/20 024 Inactive D/C rosuvastatin 20mg venlafaxine ER 75 mg capsule,extended release 24 hr RxNorm: 180101 Take 3 Capsule(s) Oral QD 04/14/20 023 Inactive pregabalin 100 mg capsule RxNorm: 002481 Take 1 Capsule(s) Oral QAM every morning [...] meter clotrimazole 1 % topical cream RxNorm: 862801 Take apply topically to abdominal folds twice daily for 14 days 03/12/20 024 Inactive Ozempic 1 mg/dose (4 mg/3 mL) subcutaneous pen injector RxNorm: 8615418 Inject 1 Milligram(s) Subcutaneous QW once a week 03/11/20 023 Inactive rosuvastatin 20 mg tablet RxNorm: 023306 Take 1 Tablet(s) Oral QD 02/26/20 023 Inactive d/c pravastatin 80mg Ozempic 1 mg/dose (4 mg/3 mL) subcutaneous pen injector RxNorm: 2675103 Inject 1 Milligram(s) Subcutaneous QW once a week 02/20/20 023 Inactive pregabalin 150 mg capsule RxNorm: 286983 Take 1 Capsule(s) Oral HS at bed time 02/19/20 023 Inactive pregabalin 100 mg capsule RxNorm: 088429 Take 1 Capsule(s) Oral QAM every morning 02/18/20 023 Inactive venlafaxine ER 75 mg capsule,extended release 24 hr RxNorm: 244467 Take 3 Capsule(s) Oral QD 02/04/20 23 023 Inactive FreeStyle Chema 2 Sensor kit RxNorm: use as directed 02/04/20 23 023 Inactive FreeStyle Chema 2 Sensor kit RxNorm: use as directed 02/04/20 024 Inactive fluconazole 150 mg tablet RxNorm: 459718 Take 1 Tablet(s) Oral on day 3 and on day 6 02/03/20 024 Inactive chlorthalidone 25 mg tablet RxNorm: 012356 Take 1 Tablet(s) Oral QAM every morning 02/03/20 23 No Stop Date Active venlafaxine ER 150 mg capsule,extended release 24 hr RxNorm: 156271 Take 1 Capsule(s) Oral QD 02/03/20 023 Inactive acetaminophen 500 mg tablet RxNorm: 835479 1 TABLET ORALLY 3 TIMES DAILY (MAX APAP:4GM/24HR) 12/15/19 23 023 Inactive clotrimazole 1 % topical cream RxNorm: 242208 apply 1g topically to top of feet and in between toes BID 12/09/19 23 023 Inactive potassium chloride ER 20 mEq tablet,extended release RxNorm: 907706 Take 1 Tablet(s) Oral BID 12/09/19 23 024 Inactive d/c 20mEq once daily (sent from hospital) nystatin 100,000 unit/gram topical powder RxNorm: 067584 APPLY TO AFFECTED AREAS TOPICALLY 2 TIMES DAILY 11/21/19 23 024 Inactive Nystop 100,000 unit/gram topical powder RxNorm: 948717 Apply to abd folds, under breasts and L side of groin Topical BID x 14 days, then BID PRN 11/20/19 023 Inactive dx: yeast dermatitis Bengay Ultra Strength 4 %-30 %-10 % topical cream RxNorm: 274662 Apply 1 Gram(s) Topical QID PRN to feet and legs for neuropathic pain 11/11/19 024 Inactive clotrimazole 1 % topical cream RxNorm: 141937 Apply 1/2 Gram(s) Topical BID Apply to affected areas of groin, periarea, and abdominal topically 2 times daily 11/10/19 023 Inactive hydrocortisone 2.5 % topical cream RxNorm: 249587 Apply 1/2 Gram(s) Topical BID as needed 11/10/19 024 Inactive Humulin R U-500 (Concentrated) Insulin 500 unit/mL subcutaneous soln RxNorm: 257052 Inject 100 Unit(s) Subcutaneous TID 10/07/19 23 024 Inactive Levemir FlexPen 100 unit/mL (3 mL) solution subcutaneous insulin pen RxNorm: 797755 Inject 30 Unit(s) Subcutaneous BID 10/07/19 023 Inactive Ozempic 0.25 mg or 0.5 mg (2 mg/3 mL) subcutaneous pen injector RxNorm: 8211904 Inject 1/2 Milligram(s) Subcutaneous QW once a week 10/07/19 024 Inactive aripiprazole 15 mg tablet RxNorm: 748590 1/2 TAB (7.5MG) ORALLY DAILY (DX:MAJOR DEPRESSIVE DISORDER) 09/23/19 023 Inactive Lancets,Thin 28 gauge RxNorm: Use 1 as directed QID 09/15/19 23 024 Inactive Accu-Chek Guide test strips RxNorm: Use 1 Test Strip QID 09/15/19 23 023 Inactive ok to substitute with any covered alternative test strip torsemide 20 mg tablet RxNorm: 997573 Take 1 Tablet(s) Oral BID 09/09/19 024 Inactive d/c once daily dosing carvedilol 25 mg tablet RxNorm: 410567 Take 1 Tablet(s) Oral QD 08/25/19 23 024 Inactive pregabalin 150 mg capsule RxNorm: 708304 1 Capsule(s) Oral HS at bed time 08/18/19 23 023 Inactive pregabalin 100 mg capsule RxNorm: 672652 1 Capsule(s) Oral QAM every morning 08/18/19 23 023 Inactive carvedilol 25 mg tablet RxNorm: 737540 1 Tablet(s) Oral QD 07/28/19 23 023 Inactive lisinopril 20 mg tablet RxNorm: 300723 Give 1 Tablet(s) Oral QD 07/28/19 23 023 Inactive Lyrica 150 mg capsule RxNorm: 675825 Take 1 Capsule(s) Oral QHS every night at bedtime 07/19/19 23 023 Inactive d/c 100mg dose Diflucan 150 mg tablet RxNorm: 059700 Take 1 Tablet(s) Oral QD repeat on day 3 and 6 07/19/19 23 023 Inactive pregabalin 100 mg capsule RxNorm: 686444 Take 1 Capsule(s) Oral QAM every morning 07/19/19 23 023 Inactive gatifloxacin 0.5 % eye drops RxNorm: 613484 Instill 1 Drop(s) as directed TID Instill 1 drop in to affected eye(s) starting 1 day prior to surgery and continue until gone (do not exceed 4 weeks). 07/13/19 23 023 Inactive carvedilol 25 mg tablet RxNorm: 549334 2 Tablet(s) Oral BID 07/13/19 23 023 Inactive Humulin R Regular U-100 Insulin 100 unit/mL injection solution RxNorm: 358464 85 Unit(s) Injection TID 07/13/19 23 023 Inactive ketorolac 0.5 % eye drops RxNorm: 667730 Instill 1 Drop(s) as directed QID Instill 1 drop into affected eye(s) 4 times daily starting 1 day prior to surgery and continue until gone (do not exceed 4 weeks). 07/13/19 23 023 Inactive Diflucan 150 mg tablet RxNorm: 963738 Take 1 Tablet(s) Oral QD repeat on day 3 and 6 06/30/19 023 Inactive Accu-Chek Guide test strips RxNorm: Use 1 Test Strip QID Use 1 test strip to monitor blood glucose 4 times daily and as needed. Dx:E11.42. 06/23/19 023 Inactive ok to substitute with any covered alternative test strip dextromethorphan-gu aifenesin 10 mg-100 mg/5 mL oral liquid RxNorm: 174335 Take 10 Milliliter(s) Oral every 4 hours as needed for cough 06/19/19 023 Inactive dextromethorphan-gu aifenesin 10 mg-100 mg/5 mL oral liquid RxNorm: 828144 Take 10 Milliliter(s) Oral every 4 hours as needed for cough 06/19/19 023 Inactive Lyrica 150 mg capsule RxNorm: 907530 Take 1 Capsule(s) Oral QHS every night at bedtime 06/18/19 023 Inactive d/c 100mg dose aripiprazole 15 mg tablet RxNorm: 619971 1/2 TAB (7.5MG) ORALLY DAILY (DX:MAJOR DEPRESSIVE DISORDER) 06/05/19 23 023 Inactive pregabalin 100 mg capsule RxNorm: 394415 1 Capsule(s) Oral QAM every morning 06/02/19 023 Inactive Banophen 50 mg capsule RxNorm: 8730263 Take 1 Capsule(s) Oral Q6H every 6 hours as needed 05/19/19 23 No Stop Date Active Novolog Flexpen U-100 Insulin aspart 100 unit/mL (3 mL) subcutaneous RxNorm: 1965367 Inject 10 Unit(s) Subcutaneous QHS every night at bedtime with nighttime snack 04/08/20 22 022 Inactive Novolog Flexpen U-100 Insulin aspart 100 unit/mL (3 mL) subcutaneous RxNorm: 3700109 Inject 42 Unit(s) Subcutaneous TID in addition to sliding scale 04/08/20 022 Inactive d/c 36u albuterol sulfate HFA 90 mcg/actuation aerosol inhaler RxNorm: 7607154 Take 2 Puff(s) Inhalation Q4H every four hours as needed as needed for SOB, cough, or wheezing 04/07/20 030 Active Banophen 50 mg capsule RxNorm: 2676791 Take 1 Capsule(s) Oral Q6H every 6 hours as needed 04/06/20 023 Inactive diphenhydramine 50 mg tablet RxNorm: 0557986 Take 1 Tablet(s) Oral Q6H every 6 hours as needed 04/06/20 022 Inactive diphenhydramine 50 mg tablet RxNorm: 7721413 1 Tablet(s) Oral Q6H every 6 hours as needed 04/06/20 022 Inactive Abilify 15 mg tablet RxNorm: 033925 1/2 Tablet(s) Oral QD 03/10/20 023 Inactive Shingrix (PF) 50 mcg/0.5 mL intramuscular suspension, kit RxNorm: 1171714 Administer 1/2 Milliliter(s) Intramuscular QD one time shingrix step 2 ( step 1 given 11/04/21) WITH needle - Nursing please administer upon arrival and once administered post a bridge message with date of administration, registry nurse, expiration date, and lot# so we can update [facility] 02/18/20 22 022 Inactive dispense with needle Shingrix (PF) 50 mcg/0.5 mL intramuscular suspension, kit RxNorm: 2870589 Administer 1/2 Milliliter(s) Intramuscular QD one time shingrix step 2 ( step 1 given 11/04/21) WITH needle - Nursing please administer upon arrival and once administered post a bridge message with date of administration, registry nurse, expiration date, and lot# so we can update [facility] 02/18/20 22 022 Inactive dispense with needle polyethylene glycol 3350 17 gram/dose oral powder RxNorm: 888044 Take 17=1 capful Gram(s) Oral QD mix with 4-8oz of liquid 01/08/20 22 023 Inactive take this in addition to BID prn order Lyrica 100 mg capsule RxNorm: 310509 Take 1 Capsule(s) Oral QAM every morning 01/08/20 22 022 Inactive d/c 50mg dose acetaminophen 500 mg tablet RxNorm: 278423 Take 1 Tablet(s) Oral TID 01/08/20 22 022 Inactive d/c PRN order Lyrica 150 mg capsule RxNorm: 223137 Take 1 Capsule(s) Oral QHS every night at bedtime 01/08/20 22 023 Inactive d/c 100mg dose Abilify 5 mg tablet RxNorm: 481066 Take 1 Tablet(s) Oral QD take 1 tab po QD #30 refill 5 dx: MDD 12/12/19 22 022 Inactive Abilify 5 mg tablet RxNorm: 452367 Take 1 Tablet(s) Oral QD take 1 tab po QD #30 refill 5 dx: MDD 12/12/19 22 022 Inactive Novolog Flexpen U-100 Insulin aspart 100 unit/mL (3 mL) subcutaneous RxNorm: 7026280 Inject 42 Unit(s) Subcutaneous TID in addition to sliding scale 12/10/19 22 022 Inactive d/c 36u chlorthalidone 25 mg tablet RxNorm: 708024 Take 1 Tablet(s) Oral QAM every morning 12/10/19 22 023 Inactive pregabalin 50 mg capsule RxNorm: 662089 Take 1 Capsule(s) Oral QAM every morning 11/12/19 22 022 Inactive tetanus-diphtheria toxoids-Td 2 Lf unit-2 Lf unit/0.5 mL IM suspension RxNorm: 139 Take 0.5 Miscellaneous Intramuscular 11/12/19 22 022 Inactive need tdap - nursing to administer upon arrival pregabalin 50 mg capsule RxNorm: 414606 Take 1 Capsule(s) Oral QAM every morning 10/16/19 22 022 Inactive pregabalin 50 mg capsule RxNorm: 372970 Take 1 Capsule(s) Oral QAM every morning 10/16/19 22 022 Inactive pregabalin 50 mg capsule RxNorm: 395425 1 Capsule(s) Oral QAM every morning 10/15/19 22 022 Inactive Shingrix (PF) 50 mcg/0.5 mL intramuscular suspension, kit RxNorm: 6523505 Administer 1/2 Milliliter(s) Intramuscular one time Nursing please administer upon arrival and once administered post a bridge message with date of administration, registry nurse, expiration date, and lot# so we can update [facility]. 10/09/19 22 022 Inactive shingrix step 1 Shingrix (PF) 50 mcg/0.5 mL intramuscular suspension, kit RxNorm: 8202925 Administer 1/2 Milliliter(s) Intramuscular one time Nursing please administer upon arrival and once administered post a bridge message with date of administration, registry nurse, expiration date, and lot# so we can update [facility]. 10/09/19 22 022 Inactive shingrix step 1 cholecalciferol (vitamin D3) 1,250 mcg (50,000 unit) capsule RxNorm: 669424 Take 1 Capsule(s) Oral QW once a [...] aspart 100 unit/mL (3 mL) subcutaneous RxNorm: 7908645 Inject 10 Unit(s) Subcutaneous QHS every night at bedtime with nighttime snack 10/08/19 22 Inactive Shingrix (PF) 50 mcg/0.5 mL intramuscular suspension, kit RxNorm: 0529153 ADMINISTER 2-DOSE SERIES PER CDC GUIDELINES 10/08/19 22 022 Active Shingrix (PF) 50 mcg/0.5 mL intramuscular suspension, kit RxNorm: 3777863 ADMINISTER 2-DOSE SERIES PER CDC GUIDELINES 10/08/19 22 05/24/2 022 Inactive Novolog Flexpen U-100 Insulin aspart 100 unit/mL (3 mL) subcutaneous RxNorm: 2994599 Inject 36 Unit(s) Subcutaneous TID in addition to sliding scale 10/08/19 Inactive Novofine Autocover 30 gauge x 1/3 needle RxNorm: Use 1 Miscellaneous UD as directed Use 1 needle as directed to administer insulin 5 times a day Dx:E11.42. 10/03/19 Inactive ok to substitute with any covered alternative pen needle benzoyl peroxide 10 % topical cleanser RxNorm: 122205 Apply 1 Application Topical QD apply to face, wash rinse and dry once daily (may change to QOD if drying) 08/19/19 022 Inactive (%covered by insurance) #60ml refill 11 dx: acne benzoyl peroxide 10 % topical cleanser RxNorm: 593142 Apply 1 Application Topical QD apply to face, wash rinse and dry once daily (may change to QOD if drying) 08/19/19 022 Inactive (%covered by insurance) #60ml refill 11 dx: acne benzoyl peroxide 10 % topical cleanser RxNorm: 850444 Apply 1 Application Topical QD apply to face, wash rinse and dry once daily (may change to QOD if drying) 08/19/19 022 Inactive (%covered by insurance) #60ml refill 11 dx: acne Lyrica 50 mg capsule RxNorm: 719567 Take 1 Capsule(s) Oral QAM every morning Take 1 capsule by mouth once daily 08/19/19 Inactive benzoyl peroxide 10 % topical cleanser RxNorm: 688644 Apply 1 Application Topical QD apply to face, wash rinse and dry once daily (may change to QOD if drying) 08/19/19 022 Inactive (%covered by insurance) #60ml refill 11 dx: acne Lyrica 100 mg capsule RxNorm: 682631 Take 1 Capsule(s) Oral QHS every night at bedtime Take 1 capsule by mouth once daily at bedtime 08/19/19 22 Inactive Lyrica 100 mg capsule RxNorm: 102100 Take 1 Capsule(s) Oral QHS every night at bedtime Take 1 capsule by mouth once daily at bedtime 08/16/19 22 022 Inactive Lyrica 50 mg capsule RxNorm: 134554 Take 1 Capsule(s) Oral QAM every morning Take 1 capsule by mouth once daily 08/16/19 22 022 Inactive Levemir FlexTouch U-100 Insulin 100 unit/mL (3 mL) subcutaneous pen RxNorm: 109560 Inject 86 Unit(s) Subcutaneous BID 08/05/19 22 022 Inactive d/c 83units BID Lyrica 100 mg capsule RxNorm: 435071 Take 1 Capsule(s) Oral QHS every night at bedtime Take 1 capsule by mouth once daily at bedtime 07/14/19 22 022 Inactive Lyrica 50 mg capsule RxNorm: 421812 Take 1 Capsule(s) Oral QAM every morning Take 1 capsule by mouth once daily 07/14/19 22 022 Inactive Levemir FlexTouch U-100 Insulin 100 unit/mL (3 mL) subcutaneous pen RxNorm: 937020 Inject 83 Unit(s) Subcutaneous BID 07/08/19 22 [...] test strip hydralazine 50 mg tablet RxNorm: 731173 Take 1 Tablet(s) Oral QID 05/05/20 21 Inactive venlafaxine ER 225 mg tablet,extended release 24 hr RxNorm: 379678 Take 1 Tablet(s) Oral QD 05/05/20 021 Inactive venlafaxine ER 225 mg tablet,extended release 24 hr RxNorm: 869406 Take 1 Tablet(s) Oral QD 05/05/20 022 Inactive isosorbide mononitrate ER 30 mg tablet,extended release 24 hr RxNorm: 142111 Take 1 Tablet(s) Oral QD 05/05/20 024 Inactive hydralazine 50 mg tablet RxNorm: 951230 Take 1 Tablet(s) Oral QID 05/05/20 21 Inactive aspirin 81 mg tablet,delayed release RxNorm: 459819 Take 1 Tablet(s) Oral QD 03/31/20 21 022 Inactive Vitamin D2 1,250 mcg (50,000 unit) capsule RxNorm: 2068361 Take 1 Capsule(s) Oral QW once a week x 12 weeks 03/31/20 022 Inactive Vitamin D2 1,250 mcg (50,000 unit) capsule RxNorm: 9148458 Take 1 Capsule(s) Oral QW once a week 03/31/20 021 Inactive Zetia 10 mg tablet RxNorm: 842989 Take 1 Tablet(s) Oral QD 03/31/20 024 Inactive Zetia 10 mg tablet RxNorm: 907810 Take 1 Tablet(s) Oral QD 03/31/20 021 Inactive hydralazine 25 mg tablet RxNorm: 431745 Take 1 Tablet(s) Oral QID 03/31/20 021 Inactive hydralazine 25 mg tablet RxNorm: 762890 Take 1 Tablet(s) Oral QID 03/31/20 021 Inactive hydralazine 10 mg tablet RxNorm: 771300 Take 1 Tablet(s) Oral QID 03/03/20 021 Inactive cephalexin 500 mg tablet RxNorm: 076385 Take 1 Tablet(s) Oral QID 02/27/20 021 Inactive cephalexin 500 mg tablet RxNorm: 328444 Take 1 Tablet(s) Oral QID 02/27/20 021 Inactive lisinopril 40 mg tablet RxNorm: 379972 Take 1 Tablet(s) Oral QD 02/11/20 023 Inactive Eliquis 5 mg tablet RxNorm: 6758314 Take 1 Tablet(s) Oral BID 01/05/20 022 Inactive Eliquis 5 mg tablet RxNorm: 4240339 Take 2 Tablet(s) Oral QD 01/01/20 021 Inactive Lyrica 50 mg capsule RxNorm: 687979 Take 1 Capsule(s) Oral QAM every morning 12/24/19 021 Inactive Lyrica 100 mg capsule RxNorm: 414353 Take 1 Capsule(s) Oral QHS every night at bedtime 12/24/19 021 Inactive clotrimazole 1 % topical cream RxNorm: 052121 Apply to right foot and toes Topical BID 12/04/19 21 023 Inactive metoprolol succinate ER 200 mg tablet,extended release 24 hr RxNorm: 068098 Take 1 Tablet(s) Oral QD 12/04/19 21 023 Inactive ciprofloxacin 500 mg tablet RxNorm: 543265 Take 1 Tablet(s) Oral QD 11/30/19 21 021 Inactive DX ofloxacin otic drops Accu-Chek Guide test strips RxNorm: USE 1 TO CHECK GLUCOSE 4 TIMES DAILY AND NEEDED 11/15/19 21 023 Inactive Blood Glucose Test strips RxNorm: Use 1 Test Strip QID at PRN 11/05/19 21 023 Inactive E11.42 lisinopril 30 mg tablet RxNorm: 685037 Take 1 Tablet(s) Oral QD 10/30/19 021 Inactive lisinopril 20 mg tablet RxNorm: 076434 Take 1 Tablet(s) Oral QD 10/23/19 21 021 Inactive lisinopril 20 mg tablet RxNorm: 411765 Take 1 Tablet(s) Oral QD 10/23/19 21 021 Inactive lisinopril 10 mg tablet RxNorm: 402351 Take 1 Tablet(s) Oral QD 10/02/19 21 021 Inactive icosapent ethyl 1 gram capsule RxNorm: 9655289 Take 2 Capsule(s) (2 gm) Oral BID with meals 09/12/19 21 024 Inactive Okay to dispense one 2gm tab if you have that available. icosapent ethyl 1 gram capsule RxNorm: 6004297 Take 2 Capsule(s) Oral BID 09/12/19 21 021 Inactive Okay to dispense one 2gm tab if you have that available. amlodipine 10 mg tablet RxNorm: 455326 Take 1 Tablet(s) Oral QD 09/04/19 022 Inactive aspirin 81 mg tablet,delayed release RxNorm: 409955 Take 1 Tablet(s) Oral QD 09/04/19 21 021 Inactive Levemir FlexTouch U-100 Insulin 100 unit/mL (3 mL) subcutaneous pen RxNorm: 719708 Inject 150 Unit(s) Subcutaneous BID 09/04/19 21 022 Inactive venlafaxine ER 150 mg tablet,extended release 24 hr RxNorm: 225406 Take 1 Tablet(s) Oral QD 09/04/19 21 021 Inactive clotrimazole-betame thasone 1 %-0.05 % topical cream RxNorm: 298688 Apply to rash on red area on left abdomen/chest Topical BID 08/10/19 21 021 Inactive amlodipine 5 mg tablet RxNorm: 020961 Take 1 Tablet(s) Oral QD 07/31/19 21 021 Inactive cephalexin 500 mg tablet RxNorm: 682985 Take 1 Tablet(s) Oral BID BID - Twice Daily 07/31/19 21 021 Inactive Start 08/01/20 pantoprazole 40 mg tablet,delayed release RxNorm: 655352 Take 1 Tablet(s) Oral QAM every morning 07/08/19 022 Inactive senna 8.6 mg tablet RxNorm: 122245 Take 1 Tablet(s) Oral QD 07/08/19 022 Inactive carbamazepine 200 mg tablet RxNorm: 340814 Take 1 Tablet(s) Oral BID 07/08/19 022 Inactive clopidogrel 75 mg tablet RxNorm: 316074 Take 1 Tablet(s) Oral QD 07/08/19 021 Inactive Blood Glucose Test strips RxNorm: Use 1 Test Strip QID at PRN 07/08/19 Inactive E11.42 Novolog Flexpen U-100 Insulin aspart 100 unit/mL (3 mL) subcutaneous RxNorm: 9148971 Administer per sliding scale Milliliter(s) Subcutaneous TID 151-200: 10 u; 201-250: 20 u; 251-300: 30 u; 301-350: 40 u; 351-400: 50 u. 07/08/19 21 022 Inactive lisinopril 5 mg tablet RxNorm: 134361 Take 1 Tablet(s) Oral QD 07/08/19 021 Inactive Novolog Flexpen U-100 Insulin aspart 100 unit/mL (3 mL) subcutaneous RxNorm: 7104019 Inject 85 Unit(s) Subcutaneous TID 07/08/19 022 Inactive pravastatin 80 mg tablet RxNorm: 422799 Take 1 Tablet(s) Oral QHS every night at bedtime 07/08/19 21 023 Inactive clotrimazole 1 % topical cream RxNorm: 620936 Apply to bilateral groin areas Topical BID 07/08/19 022 Inactive metoprolol succinate ER 200 mg tablet,extended release 24 hr RxNorm: 100299 Take 1 Tablet(s) Oral QD 07/08/19 21 021 Inactive Vitamin D3 25 mcg (1,000 unit) tablet RxNorm: 511310 Take 1 Tablet(s) Oral QD 07/08/19 021 Inactive isosorbide dinitrate 30 mg tablet RxNorm: 541000 Take 1 Tablet(s) Oral QD 07/08/19 021 Inactive Levemir FlexTouch U-100 Insulin 100 unit/mL (3 mL) subcutaneous pen RxNorm: 036858 Inject 140 Unit(s) Subcutaneous BID 07/08/19 021 Inactive torsemide 20 mg tablet RxNorm: 031307 Take 1 Tablet(s) Oral QD 07/08/19 023 Inactive venlafaxine 75 mg tablet RxNorm: 856613 Take 1 Tablet(s) Oral QD 07/08/19 021 Inactive acetaminophen 500 mg tablet RxNorm: 549124 Take 1 Tablet(s) Oral TID as needed for headache 06/18/19 21 021 Inactive acetaminophen 500 mg tablet RxNorm: 223653 Take 1 Tablet(s) Oral TID as needed for headache 06/18/19 021 Inactive Lyrica 100 mg capsule RxNorm: 481858 Take 1 Capsule(s) Oral QHS every night at bedtime 06/11/19 021 Inactive Lyrica 50 mg capsule RxNorm: 092890 Take 1 Capsule(s) Oral QAM every morning 06/10/19 21 021 Inactive hydrocortisone 2.5 % topical cream RxNorm: 628748 Apply to bilateral groin creases Topical BID 05/15/20 20 021 Inactive clotrimazole 1 % topical cream RxNorm: 530994 Apply to bilateral groin areas Topical BID 05/15/20 20 021 Inactive Lyrica 50 mg capsule RxNorm: 260308 Take 1 Capsule(s) Oral QAM every morning 05/14/20 20 12/29/2 020 Inactive Lyrica 100 mg capsule RxNorm: 494097 Take 1 Capsule(s) Oral QHS every night [...] Inactive Nystop 100,000 unit/gram topical powder RxNorm: 941540 Apply to abd folds, under breasts and L side of groin Topical BID x 14 days, then BID PRN 04/08/20 20 Inactive dx: yeast dermatitis Lyrica 100 mg capsule RxNorm: 933784 Take 1 Capsule(s) Oral QHS every night at bedtime 03/13/20 20 Inactive Lyrica 50 mg capsule RxNorm: 252306 Take 1 Capsule(s) Oral QAM every morning 03/13/20 20 Inactive ketoconazole 2 % shampoo RxNorm: 973488 Apply Topical two times a week with showers 03/11/20 20 024 Inactive cholecalciferol (vitamin D3) 50 mcg (2,000 unit) tablet RxNorm: 804812 Take 1 Tablet(s) Oral QD 03/11/20 20 Inactive Zetia 10 mg tablet RxNorm: 538854 Take 1 Tablet(s) Oral QD 03/07/20 20 021 Inactive Zetia 10 mg tablet RxNorm: 548954 Take 1 Tablet(s) Oral QD 10/22 Inactive Lyrica 50 mg capsule RxNorm: 625126 Take 1 Capsule(s) Oral QAM every morning 02/15/20 Inactive Lyrica 100 mg capsule RxNorm: 390411 Take 1 Capsule(s) Oral QHS every night at bedtime 02/15/20 Inactive Lyrica 100 mg capsule RxNorm: 868348 Take 1 Capsule(s) Oral QHS every night at bedtime 02/15/20 Inactive Lyrica 50 mg capsule RxNorm: 217120 Take 1 Capsule(s) Oral QAM every morning 02/15/20 Inactive metoprolol succinate ER 200 mg tablet,extended release 24 hr RxNorm: 435742 Take 1 Tablet(s) Oral QD 08/11 Activeloperamide 2 mg capsuleRxNorm: 341717Xnza 1 Capsule(s) Oral QID as needed 06/12/2021ctivehydralazine 50 mg tabletRxNorm: 367111Gkau 1 Tablet(s) Oral QID 08/11/2022ctivevenlafaxine ER 75 mg capsule,extended release 24 hrRxNorm: 352346Soxl 3 Capsule(s) Oral QD/Inactivepolyethylene glycol 3350 17 gram/dose oral powderRxNorm: 590399Vwwm 17=1 capful Gram(s) Oral BID as needed mix with 4-8oz of tutiiq99/Inactiveicosapent ethyl 1 gram capsuleRxNorm: 0218201Emdj 2 Capsule(s) (2 gm) Oral BID with meals /InactiveOkay to dispense one 2gm tab if you have that available.Levemir FlexTouch U-100 Insulin 100 unit/mL (3 mL) subcutaneous pen RxNorm: 037970Pkzuwy 80 Unit(s) Subcutaneous BID/Inactive Novolog Flexpen U-100 Insulin aspart 100 unit/mL (3 mL) subcutaneousRxNorm: 4494211Jopzmy 30 Unit(s) Subcutaneous TID with mealsInactive Medication [...] Status Date Patient Education: Patient Medication Summary Kqbdonljc08/24/2024ppointment: Harrison Munson WPtel: [address] [place], [place] [id number] [facility]/U08ppointment: Sandra Clark WPtel: [address] [facility] [address] [id number] Count includes the [facility] Psych Follow Up12/09/2022ppointment: Yola Shirleyy WPtel: [address] [id number] USTCM10/26/2022Referral: [facility] WPtel[facility] [address] [facility] [address] [id number] USReferralRecords Cleojhva40/08/2023ppointment: Tapan Shirley WPtel: [address] [facility] [address] [id number] USF/U008/11/2022ppointment: Tapan Shirley WPtel: [address] [facility] 300 [id number] USF/U007/14/2022ppointment: Tapan Shirley WPtel: [address] [facility] [address] [id number] [place]/U02Referral: [facility] WPtel: [address] [id number] YJRhwtjkgcQccqwrdyu25/12/2022Referral: General CardiologyReferralCompleted 1Referral: General PsychologistReferralClosedReferral: General PsychiatristReferralPatient/Family [...] Sister Jyotsna involved in his care cell# [phone] Guardian: Giulia carlsony met in person 09/01/21), now has Lexii (same group as giulia)AWV 02.08.2024. Lab Schedule: *September (CBC with diff, CMP, A1c) [...] Martines note from 11.08.2023 at [facility] (follow up 6 months)Colon & Rectal Surgery visit scheduled for 03/08/24 with Matilde Pérez PA-C. 02/08/2024
--- OUTSIDE RECORDS SUMMARY | 2024-02-19 13:19 | XMS_ITS | CCD ---
Author Name Cecilio Durham ie Address [address] [place] [address] Phone Organization [facility] Phone Care Team Providers Care Environmental Services Aide Name Role Phone Arpit MENDOZA Harrison Primary Care Provider Leona vailable Arpit ARLENParker Harrison Chronic Care Management U navailable Summary Purpose DataExchange Insurance Providers Payer name Policy type / Coverage type Covered democrat ID Effective Begin Date Effective End Date [place] Part B [id number] Unknown Unknown [place] Part B [id number] Unknown Unknown Family history Sister Brittany Suggs Diagnosis Age At Onset No Family Disease Entered N/A Runs in the family Diagnosis Age At Onset No Known Diseases N/A Sister Blanka Mcduffie Diagnosis Age At Onset No Family Disease Entered N/A Social History Social History Element Codes Description Effec tive Dates Tobacco history SNOMED CT: 416799090 Never smoker 01/16 Sexually Active? Unknown No [...] Single 10/07/2021 Living arrangements Unknown [facility] 09/03/[address]: 731293933 No Alcohol Consum ption 09/02/2020 Allergies, Adverse Reactions, Alerts Substance Reaction Codes Entered Date Inactivated Date Status * NO KNOWN FOOD ALLERGIES Vynzwcq6307/13/2023No Inactive DateActiveLISINOPRILRxNorm: 6206713No Inactive DateActiveMetformin GOhTpqdted43/28/2020No Inactive DateActive* NO KNOWN ENVIRONMENTAL FOOFVPTYOVomjcyh43/27/2024No Inactive DateActive Problems Condition Codes Effective Dates [...] E55.9 ICD-9: 268.909ctiveCallus of heelICD-10: L84 ICD-9: 55866/esolvedGout due to renal impairmentICD-10: M10.30 ICD-9: 274.10054ResolvedHyperhidrosis of palmsICD-10: L74.512 ICD-9: 705.2105esolvedHyperlipidemia, unspecifiedICD-10: E78.5 ICD-9: 272.405/28/2024ResolvedOther fci (current) drug therapyICD-10: Z79.899 ICD-9: V58.6905/esolvedPain of [...] tagICD-10: L91.8 ICD-9: 701.904esolvedCoronary artery disease involving [place] coronary artery of [place] heart, angina presence unspecifiedICD-10: I25.10 ICD-9: 414.0102/ctiveInappropriate sexual behaviorICD-10: Z72.89 ICD-9: 312.8910/ctivePre-op evaluationICD-10: Z01.818 ICD-9: V72.8403/ctiveSecondary hypertensionICD-10: I15.9 ICD-9: 405.9903/ctiveDepressionICD-10: F32.9 ICD-9: 08643/2ResolvedDVT (deep venous thrombosis)ICD-10: I82.409 ICD-9: 453.40092ResolvedEncounter for [...] to other viral communicable diseasesICD-10: Z20.828 ICD-9: V01.79023996UoqmijulHbwkfcowAcwbkxg39/28/2020ActiveDiabetes mellitus Type 9Pzrkwak74/28/2020ActiveAnemia in chronic kidney diseaseICD-10: D63.1 02/12/2020ResolvedHyperlipidemia, unspecifiedICD-10: E78.Resolved Medications Medication Codes Instructions Start Date Stop Date Status Fill Instructions pregabalin 100 mg capsule RxNorm: 935736 Take 1 Capsule(s) Oral QAM every morning 02/07/20 24 05/06/ 024 Active isosorbide mononitrate ER 60 mg tablet,extended release 24 hr RxNorm: 724808 Take 1 Tablet(s) Oral QD 02/01/20 24 025 Active aripiprazole 15 mg tablet RxNorm: 341430 Take 1/2 Tablet(s) Oral QD 02/01/20 24 Active torsemide 20 mg tablet RxNorm: 166791 1 TAB ORALLY DAILY (DX: EDEMA) 01/27/20 No Stop Date Active potassium chloride ER 20 mEq tablet,extended release(part/cryst) RxNorm: 0921422 2 TABS (40MEQ) ORALLY TWICE DAILY (DX: HYPOKALEMIA) 01/27/20 No Stop Date Active cephalexin 500 mg capsule RxNorm: 343463 Take 1 Capsule(s) Oral QID 12/17/19 24 024 Inactive cephalexin 500 mg capsule RxNorm: 804752 Take 1 Capsule(s) Oral QID 12/17/19 24 024 Inactive acetaminophen 500 mg tablet RxNorm: 626613 (MAX APAP:4GM/24HR) Take 1 Tablet(s) Oral TID as needed for pain 12/10/19 24 024 Active torsemide 20 mg tablet RxNorm: 258045 Take 1 Tablet(s) Oral QD 10/26/19 24 024 Inactive potassium chloride ER 20 mEq tablet,extended release RxNorm: 831099 Take 2 Tablet(s) Oral BID 10/26/19 24 025 Active torsemide 20 mg tablet RxNorm: 958668 Take 1 Tablet(s) Oral QD 10/26/19 24 024 Inactive potassium chloride ER 20 mEq tablet,extended release RxNorm: 852320 Take 2 Tablet(s) Oral BID 10/26/19 24 024 Inactive Artificial Tears (PF) 0.1 %-0.3 % drops in a dropperette RxNorm: 327777 Apply 1-2 Drop(s) Both eyes BID as needed 09/28/19 24 Active erythromycin 5 mg/gram (0.5 %) eye ointment RxNorm: 934173 Apply 1 Application Both eyes QHS every night at bedtime Instill ~1 cm ribbon into affected eye 09/28/19 24 024 Inactive Artificial Tears (PF) 0.1 %-0.3 % drops in a dropperette RxNorm: 531398 Apply 1-2 Drop(s) Both eyes BID as needed 09/28/19 24 Inactive erythromycin 5 mg/gram (0.5 %) eye ointment RxNorm: 259137 Apply 1 Application Both eyes QHS every night at bedtime Instill ~1 cm ribbon into affected eye 09/28/19 24 Inactive acetaminophen 500 mg tablet RxNorm: 186398 (MAX APAP:4GM/24HR) Take 1 Tablet(s) Oral TID as needed for pain 09/24/19 24 Inactive carvedilol 25 mg tablet RxNorm: 160835 Take 1 Tablet(s) Oral QD 09/08/19 24 No Stop Date Active pregabalin 100 mg capsule RxNorm: 305629 Take 1 Capsule(s) Oral QAM every morning 09/07/19 24 Inactive rosuvastatin 40 mg tablet RxNorm: 711951 Take 1 Tablet(s) Oral QPM every evening 07/13/19 24 No Stop Date Active ezetimibe 10 mg tablet RxNorm: 691727 Take 1 Tablet(s) Oral QD 07/13/19 24 No Stop Date Active bisacodyl 10 mg rectal suppository RxNorm: 659394 Insert 1 Suppository Rectal QD as needed 07/13/19 24 No Stop Date Active polyethylene glycol 3350 17 gram/dose oral powder RxNorm: 519194 Take 17 Gram(s) Oral BID as needed mix in 4-8ox water 07/13/19 24 No Stop Date Active ketoconazole 2 % shampoo RxNorm: 519016 Apply 1 Application Topical UD as directed 07/13/19 24 No Stop Date Active Ozempic 1 mg/dose (4 mg/3 mL) subcutaneous pen injector RxNorm: 5189095 Inject 1 Milligram(s) Subcutaneous QW once a week 07/13/19 24 No Stop Date Active Guaifenesin AC 10 mg-100 mg/5 mL oral liquid RxNorm: 109368 Take 10 Milliliter(s) Oral Q4H every four hours as needed 07/13/19 24 No Stop Date Active ammonium lactate 12 % topical cream RxNorm: 503462 Apply 1 Application Topical BID 07/13/19 24 No Stop Date Active hydrocortisone 2.5 % topical cream RxNorm: 959392 Apply 1 Application Topical BID as needed 07/13/19 24 No Stop Date Active rosuvastatin 20 mg sprinkle capsule RxNorm: 1784301 Take 1 Capsule(s) Oral QD 07/13/19 24 No Stop Date Active Vascepa 1 gram capsule RxNorm: 6198306 Take 2 Capsule(s) Oral BID 07/13/19 24 No Stop Date Active venlafaxine ER 75 mg capsule,extended release 24 hr RxNorm: 698189 Take 3 Capsule(s) Oral QD 07/13/19 24 No Stop Date Active aripiprazole 15 mg tablet RxNorm: 510161 Take 1/2 Tablet(s) Oral QD 07/13/19 24 024 Inactive isosorbide mononitrate ER 60 mg tablet,extended release 24 hr RxNorm: 449811 Take 1 Tablet(s) Oral QD 07/13/19 24 024 Inactive Basaglar KwikPen U-100 Insulin 100 unit/mL (3 mL) subcutaneous RxNorm: 9292724 Inject 30U SubQ twice daily 07/07/19 24 024 Inactive Please dispense one month supply. Basaglar KwikPen U-100 Insulin 100 unit/mL (3 mL) subcutaneous RxNorm: 2057357 Inject 30U SubQ twice daily 07/07/19 24 024 Inactive Please dispense one month supply. pregabalin 150 mg capsule RxNorm: 045149 Take 1 Capsule(s) Oral QHS every night at bedtime 07/05/19 24 024 Inactive pregabalin 150 mg capsule RxNorm: 475882 Take 1 Capsule(s) Oral QHS every night at bedtime 07/05/19 24 024 Inactive polyethylene glycol 3350 17 gram/dose oral powder RxNorm: 469371 Take 1 Packet Oral QD as needed (1 packet = 17g) mix with 4-8oz of liquid 06/15/19 24 024 Inactive bisacodyl 10 mg rectal suppository RxNorm: 022912 Insert one suppository per rectum once daily as needed for constipation 06/15/19 024 Inactive bisacodyl 10 mg rectal suppository RxNorm: 759705 Insert one suppository per rectum once daily as needed for constipation 06/15/19 024 Inactive pregabalin 100 mg capsule RxNorm: 064357 Take 1 Capsule(s) Oral QAM every morning 04/27/20 024 Inactive Levemir FlexPen 100 unit/mL (3 mL) solution subcutaneous insulin pen RxNorm: 499601 Inject 30 Unit(s) Subcutaneous BID 04/27/20 024 Inactive rosuvastatin 40 mg tablet RxNorm: 401649 Take 1 Tablet(s) Oral QPM every evening 04/16/20 024 Inactive D/C rosuvastatin 20mg venlafaxine ER 75 mg capsule,extended release 24 hr RxNorm: 961909 Take 3 Capsule(s) Oral QD 04/14/20 023 Inactive pregabalin 100 mg capsule RxNorm: 860889 Take 1 Capsule(s) Oral QAM every morning [...] meter clotrimazole 1 % topical cream RxNorm: 269406 Take apply topically to abdominal folds twice daily for 14 days 03/12/20 024 Inactive Ozempic 1 mg/dose (4 mg/3 mL) subcutaneous pen injector RxNorm: 7585770 Inject 1 Milligram(s) Subcutaneous QW once a week 03/11/20 023 Inactive rosuvastatin 20 mg tablet RxNorm: 821023 Take 1 Tablet(s) Oral QD 02/26/20 023 Inactive d/c pravastatin 80mg Ozempic 1 mg/dose (4 mg/3 mL) subcutaneous pen injector RxNorm: 3585659 Inject 1 Milligram(s) Subcutaneous QW once a week 02/20/20 023 Inactive pregabalin 150 mg capsule RxNorm: 260754 Take 1 Capsule(s) Oral HS at bed time 02/19/20 023 Inactive pregabalin 100 mg capsule RxNorm: 718994 Take 1 Capsule(s) Oral QAM every morning 02/18/20 023 Inactive venlafaxine ER 75 mg capsule,extended release 24 hr RxNorm: 783515 Take 3 Capsule(s) Oral QD 02/04/20 23 023 Inactive FreeStyle Chema 2 Sensor kit RxNorm: use as directed 02/04/20 23 023 Inactive FreeStyle Chema 2 Sensor kit RxNorm: use as directed 02/04/20 024 Inactive fluconazole 150 mg tablet RxNorm: 053815 Take 1 Tablet(s) Oral on day 3 and on day 6 02/03/20 024 Inactive chlorthalidone 25 mg tablet RxNorm: 588086 Take 1 Tablet(s) Oral QAM every morning 02/03/20 23 No Stop Date Active venlafaxine ER 150 mg capsule,extended release 24 hr RxNorm: 286519 Take 1 Capsule(s) Oral QD 02/03/20 023 Inactive acetaminophen 500 mg tablet RxNorm: 433556 1 TABLET ORALLY 3 TIMES DAILY (MAX APAP:4GM/24HR) 12/15/19 23 023 Inactive clotrimazole 1 % topical cream RxNorm: 969566 apply 1g topically to top of feet and in between toes BID 12/09/19 23 023 Inactive potassium chloride ER 20 mEq tablet,extended release RxNorm: 689226 Take 1 Tablet(s) Oral BID 12/09/19 23 024 Inactive d/c 20mEq once daily (sent from hospital) nystatin 100,000 unit/gram topical powder RxNorm: 719980 APPLY TO AFFECTED AREAS TOPICALLY 2 TIMES DAILY 11/21/19 23 024 Inactive Nystop 100,000 unit/gram topical powder RxNorm: 251831 Apply to abd folds, under breasts and L side of groin Topical BID x 14 days, then BID PRN 11/20/19 023 Inactive dx: yeast dermatitis [place] Ultra Strength 4 %-30 %-10 % topical cream RxNorm: 809771 Apply 1 Gram(s) Topical QID PRN to feet and legs for neuropathic pain 11/11/19 024 Inactive clotrimazole 1 % topical cream RxNorm: 484653 Apply 1/2 Gram(s) Topical BID Apply to affected areas of groin, periarea, and abdominal topically 2 times daily 11/10/19 023 Inactive hydrocortisone 2.5 % topical cream RxNorm: 891596 Apply 1/2 Gram(s) Topical BID as needed 11/10/19 024 Inactive Humulin R U-500 (Concentrated) Insulin 500 unit/mL subcutaneous soln RxNorm: 933667 Inject 100 Unit(s) Subcutaneous TID 10/07/19 23 024 Inactive Levemir FlexPen 100 unit/mL (3 mL) solution subcutaneous insulin pen RxNorm: 145556 Inject 30 Unit(s) Subcutaneous BID 10/07/19 023 Inactive Ozempic 0.25 mg or 0.5 mg (2 mg/3 mL) subcutaneous pen injector RxNorm: 7263839 Inject 1/2 Milligram(s) Subcutaneous QW once a week 10/07/19 024 Inactive aripiprazole 15 mg tablet RxNorm: 820838 1/2 TAB (7.5MG) ORALLY DAILY (DX:MAJOR DEPRESSIVE DISORDER) 09/23/19 023 Inactive Lancets,Thin 28 gauge RxNorm: Use 1 as directed QID 09/15/19 23 024 Inactive Accu-Chek Guide test strips RxNorm: Use 1 Test Strip QID 09/15/19 23 023 Inactive ok to substitute with any covered alternative test strip torsemide 20 mg tablet RxNorm: 276910 Take 1 Tablet(s) Oral BID 09/09/19 024 Inactive d/c once daily dosing carvedilol 25 mg tablet RxNorm: 961963 Take 1 Tablet(s) Oral QD 08/25/19 23 024 Inactive pregabalin 150 mg capsule RxNorm: 069751 1 Capsule(s) Oral HS at bed time 08/18/19 23 023 Inactive pregabalin 100 mg capsule RxNorm: 502875 1 Capsule(s) Oral QAM every morning 08/18/19 23 023 Inactive carvedilol 25 mg tablet RxNorm: 702948 1 Tablet(s) Oral QD 07/28/19 23 023 Inactive lisinopril 20 mg tablet RxNorm: 202834 Give 1 Tablet(s) Oral QD 07/28/19 23 023 Inactive Lyrica 150 mg capsule RxNorm: 961339 Take 1 Capsule(s) Oral QHS every night at bedtime 07/19/19 23 023 Inactive d/c 100mg dose Diflucan 150 mg tablet RxNorm: 818501 Take 1 Tablet(s) Oral QD repeat on day 3 and 6 07/19/19 23 023 Inactive pregabalin 100 mg capsule RxNorm: 497621 Take 1 Capsule(s) Oral QAM every morning 07/19/19 23 023 Inactive gatifloxacin 0.5 % eye drops RxNorm: 414764 Instill 1 Drop(s) as directed TID Instill 1 drop in to affected eye(s) starting 1 day prior to surgery and continue until gone (do not exceed 4 weeks). 07/13/19 23 023 Inactive carvedilol 25 mg tablet RxNorm: 028651 2 Tablet(s) Oral BID 07/13/19 23 023 Inactive Humulin R Regular U-100 Insulin 100 unit/mL injection solution RxNorm: 721238 85 Unit(s) Injection TID 07/13/19 23 023 Inactive ketorolac 0.5 % eye drops RxNorm: 886229 Instill 1 Drop(s) as directed QID Instill 1 drop into affected eye(s) 4 times daily starting 1 day prior to surgery and continue until gone (do not exceed 4 weeks). 07/13/19 23 023 Inactive Diflucan 150 mg tablet RxNorm: 209826 Take 1 Tablet(s) Oral QD repeat on day 3 and 6 06/30/19 023 Inactive Accu-Chek Guide test strips RxNorm: Use 1 Test Strip QID Use 1 test strip to monitor blood glucose 4 times daily and as needed. Dx:E11.42. 06/23/19 023 Inactive ok to substitute with any covered alternative test strip dextromethorphan-gu aifenesin 10 mg-100 mg/5 mL oral liquid RxNorm: 349734 Take 10 Milliliter(s) Oral every 4 hours as needed for cough 06/19/19 023 Inactive dextromethorphan-gu aifenesin 10 mg-100 mg/5 mL oral liquid RxNorm: 437123 Take 10 Milliliter(s) Oral every 4 hours as needed for cough 06/19/19 023 Inactive Lyrica 150 mg capsule RxNorm: 309251 Take 1 Capsule(s) Oral QHS every night at bedtime 06/18/19 023 Inactive d/c 100mg dose aripiprazole 15 mg tablet RxNorm: 068833 1/2 TAB (7.5MG) ORALLY DAILY (DX:MAJOR DEPRESSIVE DISORDER) 06/05/19 23 023 Inactive pregabalin 100 mg capsule RxNorm: 135837 1 Capsule(s) Oral QAM every morning 06/02/19 023 Inactive Banophen 50 mg capsule RxNorm: 1946682 Take 1 Capsule(s) Oral Q6H every 6 hours as needed 05/19/19 23 No Stop Date Active Novolog Flexpen U-100 Insulin aspart 100 unit/mL (3 mL) subcutaneous RxNorm: 6578310 Inject 10 Unit(s) Subcutaneous QHS every night at bedtime with nighttime snack 04/08/20 22 022 Inactive Novolog Flexpen U-100 Insulin aspart 100 unit/mL (3 mL) subcutaneous RxNorm: 2496188 Inject 42 Unit(s) Subcutaneous TID in addition to sliding scale 04/08/20 022 Inactive d/c 36u albuterol sulfate HFA 90 mcg/actuation aerosol inhaler RxNorm: 9872755 Take 2 Puff(s) Inhalation Q4H every four hours as needed as needed for SOB, cough, or wheezing 04/07/20 030 Active Banophen 50 mg capsule RxNorm: 2597223 Take 1 Capsule(s) Oral Q6H every 6 hours as needed 04/06/20 023 Inactive diphenhydramine 50 mg tablet RxNorm: 7322756 Take 1 Tablet(s) Oral Q6H every 6 hours as needed 04/06/20 022 Inactive diphenhydramine 50 mg tablet RxNorm: 5072651 1 Tablet(s) Oral Q6H every 6 hours as needed 04/06/20 022 Inactive Abilify 15 mg tablet RxNorm: 116850 1/2 Tablet(s) Oral QD 03/10/20 023 Inactive Shingrix (PF) 50 mcg/0.5 mL intramuscular suspension, kit RxNorm: 4155510 Administer 1/2 Milliliter(s) Intramuscular QD one time shingrix step 2 ( step 1 given 11/04/21) WITH needle - Nursing please administer upon arrival and once administered post a bridge message with date of administration, court supervisor, expiration date, and lot# so we can update [facility] 02/18/20 22 022 Inactive dispense with needle Shingrix (PF) 50 mcg/0.5 mL intramuscular suspension, kit RxNorm: 6757619 Administer 1/2 Milliliter(s) Intramuscular QD one time shingrix step 2 ( step 1 given 11/04/21) WITH needle - Nursing please administer upon arrival and once administered post a bridge message with date of administration, court supervisor, expiration date, and lot# so we can update [facility] 02/18/20 22 022 Inactive dispense with needle polyethylene glycol 3350 17 gram/dose oral powder RxNorm: 236937 Take 17=1 capful Gram(s) Oral QD mix with 4-8oz of liquid 01/08/20 22 023 Inactive take this in addition to BID prn order Lyrica 100 mg capsule RxNorm: 827954 Take 1 Capsule(s) Oral QAM every morning 01/08/20 22 022 Inactive d/c 50mg dose acetaminophen 500 mg tablet RxNorm: 727545 Take 1 Tablet(s) Oral TID 01/08/20 22 022 Inactive d/c PRN order Lyrica 150 mg capsule RxNorm: 799630 Take 1 Capsule(s) Oral QHS every night at bedtime 01/08/20 22 023 Inactive d/c 100mg dose Abilify 5 mg tablet RxNorm: 651833 Take 1 Tablet(s) Oral QD take 1 tab po QD #30 refill 5 dx: MDD 12/12/19 22 022 Inactive Abilify 5 mg tablet RxNorm: 950518 Take 1 Tablet(s) Oral QD take 1 tab po QD #30 refill 5 dx: MDD 12/12/19 22 022 Inactive Novolog Flexpen U-100 Insulin aspart 100 unit/mL (3 mL) subcutaneous RxNorm: 1376924 Inject 42 Unit(s) Subcutaneous TID in addition to sliding scale 12/10/19 22 022 Inactive d/c 36u chlorthalidone 25 mg tablet RxNorm: 567246 Take 1 Tablet(s) Oral QAM every morning 12/10/19 22 023 Inactive pregabalin 50 mg capsule RxNorm: 947439 Take 1 Capsule(s) Oral QAM every morning 11/12/19 22 022 Inactive tetanus-diphtheria toxoids-Td 2 Lf unit-2 Lf unit/0.5 mL IM suspension RxNorm: 139 Take 0.5 Miscellaneous Intramuscular 11/12/19 22 022 Inactive need tdap - nursing to administer upon arrival pregabalin 50 mg capsule RxNorm: 109822 Take 1 Capsule(s) Oral QAM every morning 10/16/19 22 022 Inactive pregabalin 50 mg capsule RxNorm: 227846 Take 1 Capsule(s) Oral QAM every morning 10/16/19 22 022 Inactive pregabalin 50 mg capsule RxNorm: 340281 1 Capsule(s) Oral QAM every morning 10/15/19 22 022 Inactive Shingrix (PF) 50 mcg/0.5 mL intramuscular suspension, kit RxNorm: 6914318 Administer 1/2 Milliliter(s) Intramuscular one time Nursing please administer upon arrival and once administered post a bridge message with date of administration, court 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 10/09/19 22 022 Inactive shingrix step 1 Shingrix (PF) 50 mcg/0.5 mL intramuscular suspension, kit RxNorm: 6601603 Administer 1/2 Milliliter(s) Intramuscular one time Nursing please administer upon arrival and once administered post a bridge message with date of administration, court 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 10/09/19 22 022 Inactive shingrix step 1 cholecalciferol (vitamin D3) 1,250 mcg (50,000 unit) capsule RxNorm: 686913 Take 1 Capsule(s) Oral QW once a [...] aspart 100 unit/mL (3 mL) subcutaneous RxNorm: 4736324 Inject 10 Unit(s) Subcutaneous QHS every night at bedtime with nighttime snack 10/08/19 22 Inactive Shingrix (PF) 50 mcg/0.5 mL intramuscular suspension, kit RxNorm: 7461628 ADMINISTER 2-DOSE SERIES PER CDC GUIDELINES 10/08/19 22 022 Active Shingrix (PF) 50 mcg/0.5 mL intramuscular suspension, kit RxNorm: 5033089 ADMINISTER 2-DOSE SERIES PER CDC GUIDELINES 10/08/19 22 05/24/2 022 Inactive Novolog Flexpen U-100 Insulin aspart 100 unit/mL (3 mL) subcutaneous RxNorm: 4674892 Inject 36 Unit(s) Subcutaneous TID in addition to sliding scale 10/08/19 Inactive Novofine Autocover 30 gauge x 1/3 needle RxNorm: Use 1 Miscellaneous UD as directed Use 1 needle as directed to administer insulin 5 times a day Dx:E11.42. 10/03/19 Inactive ok to substitute with any covered alternative pen needle benzoyl peroxide 10 % topical cleanser RxNorm: 688748 Apply 1 Application Topical QD apply to face, wash rinse and dry once daily (may change to QOD if drying) 08/19/19 022 Inactive (%covered by insurance) #60ml refill 11 dx: acne benzoyl peroxide 10 % topical cleanser RxNorm: 014767 Apply 1 Application Topical QD apply to face, wash rinse and dry once daily (may change to QOD if drying) 08/19/19 022 Inactive (%covered by insurance) #60ml refill 11 dx: acne benzoyl peroxide 10 % topical cleanser RxNorm: 775264 Apply 1 Application Topical QD apply to face, wash rinse and dry once daily (may change to QOD if drying) 08/19/19 022 Inactive (%covered by insurance) #60ml refill 11 dx: acne Lyrica 50 mg capsule RxNorm: 567200 Take 1 Capsule(s) Oral QAM every morning Take 1 capsule by mouth once daily 08/19/19 Inactive benzoyl peroxide 10 % topical cleanser RxNorm: 910465 Apply 1 Application Topical QD apply to face, wash rinse and dry once daily (may change to QOD if drying) 08/19/19 022 Inactive (%covered by insurance) #60ml refill 11 dx: acne Lyrica 100 mg capsule RxNorm: 751538 Take 1 Capsule(s) Oral QHS every night at bedtime Take 1 capsule by mouth once daily at bedtime 08/19/19 22 Inactive Lyrica 100 mg capsule RxNorm: 912500 Take 1 Capsule(s) Oral QHS every night at bedtime Take 1 capsule by mouth once daily at bedtime 08/16/19 22 022 Inactive Lyrica 50 mg capsule RxNorm: 031265 Take 1 Capsule(s) Oral QAM every morning Take 1 capsule by mouth once daily 08/16/19 22 022 Inactive Levemir FlexTouch U-100 Insulin 100 unit/mL (3 mL) subcutaneous pen RxNorm: 248637 Inject 86 Unit(s) Subcutaneous BID 08/05/19 22 022 Inactive d/c 83units BID Lyrica 100 mg capsule RxNorm: 762657 Take 1 Capsule(s) Oral QHS every night at bedtime Take 1 capsule by mouth once daily at bedtime 07/14/19 22 022 Inactive Lyrica 50 mg capsule RxNorm: 827528 Take 1 Capsule(s) Oral QAM every morning Take 1 capsule by mouth once daily 07/14/19 22 022 Inactive Levemir FlexTouch U-100 Insulin 100 unit/mL (3 mL) subcutaneous pen RxNorm: 668689 Inject 83 Unit(s) Subcutaneous BID 07/08/19 22 [...] test strip hydralazine 50 mg tablet RxNorm: 669493 Take 1 Tablet(s) Oral QID 05/05/20 21 Inactive venlafaxine ER 225 mg tablet,extended release 24 hr RxNorm: 074273 Take 1 Tablet(s) Oral QD 05/05/20 021 Inactive venlafaxine ER 225 mg tablet,extended release 24 hr RxNorm: 634243 Take 1 Tablet(s) Oral QD 05/05/20 022 Inactive isosorbide mononitrate ER 30 mg tablet,extended release 24 hr RxNorm: 269228 Take 1 Tablet(s) Oral QD 05/05/20 024 Inactive hydralazine 50 mg tablet RxNorm: 656440 Take 1 Tablet(s) Oral QID 05/05/20 21 Inactive aspirin 81 mg tablet,delayed release RxNorm: 777200 Take 1 Tablet(s) Oral QD 03/31/20 21 022 Inactive Vitamin D2 1,250 mcg (50,000 unit) capsule RxNorm: 5169812 Take 1 Capsule(s) Oral QW once a week x 12 weeks 03/31/20 022 Inactive Vitamin D2 1,250 mcg (50,000 unit) capsule RxNorm: 9443608 Take 1 Capsule(s) Oral QW once a week 03/31/20 021 Inactive Zetia 10 mg tablet RxNorm: 057897 Take 1 Tablet(s) Oral QD 03/31/20 024 Inactive Zetia 10 mg tablet RxNorm: 194407 Take 1 Tablet(s) Oral QD 03/31/20 021 Inactive hydralazine 25 mg tablet RxNorm: 765716 Take 1 Tablet(s) Oral QID 03/31/20 021 Inactive hydralazine 25 mg tablet RxNorm: 230749 Take 1 Tablet(s) Oral QID 03/31/20 021 Inactive hydralazine 10 mg tablet RxNorm: 752703 Take 1 Tablet(s) Oral QID 03/03/20 021 Inactive cephalexin 500 mg tablet RxNorm: 924242 Take 1 Tablet(s) Oral QID 02/27/20 021 Inactive cephalexin 500 mg tablet RxNorm: 000027 Take 1 Tablet(s) Oral QID 02/27/20 021 Inactive lisinopril 40 mg tablet RxNorm: 562054 Take 1 Tablet(s) Oral QD 02/11/20 023 Inactive Eliquis 5 mg tablet RxNorm: 9033092 Take 1 Tablet(s) Oral BID 01/05/20 022 Inactive Eliquis 5 mg tablet RxNorm: 0016879 Take 2 Tablet(s) Oral QD 01/01/20 021 Inactive Lyrica 50 mg capsule RxNorm: 651986 Take 1 Capsule(s) Oral QAM every morning 12/24/19 021 Inactive Lyrica 100 mg capsule RxNorm: 407426 Take 1 Capsule(s) Oral QHS every night at bedtime 12/24/19 021 Inactive clotrimazole 1 % topical cream RxNorm: 206931 Apply to right foot and toes Topical BID 12/04/19 21 023 Inactive metoprolol succinate ER 200 mg tablet,extended release 24 hr RxNorm: 789174 Take 1 Tablet(s) Oral QD 12/04/19 21 023 Inactive ciprofloxacin 500 mg tablet RxNorm: 460982 Take 1 Tablet(s) Oral QD 11/30/19 21 021 Inactive DX ofloxacin otic drops Accu-Chek Guide test strips RxNorm: USE 1 TO CHECK GLUCOSE 4 TIMES DAILY AND NEEDED 11/15/19 21 023 Inactive Blood Glucose Test strips RxNorm: Use 1 Test Strip QID at PRN 11/05/19 21 023 Inactive E11.42 lisinopril 30 mg tablet RxNorm: 150920 Take 1 Tablet(s) Oral QD 10/30/19 021 Inactive lisinopril 20 mg tablet RxNorm: 073911 Take 1 Tablet(s) Oral QD 10/23/19 21 021 Inactive lisinopril 20 mg tablet RxNorm: 295317 Take 1 Tablet(s) Oral QD 10/23/19 21 021 Inactive lisinopril 10 mg tablet RxNorm: 380591 Take 1 Tablet(s) Oral QD 10/02/19 21 021 Inactive icosapent ethyl 1 gram capsule RxNorm: 3318037 Take 2 Capsule(s) (2 gm) Oral BID with meals 09/12/19 21 024 Inactive Okay to dispense one 2gm tab if you have that available. icosapent ethyl 1 gram capsule RxNorm: 9751932 Take 2 Capsule(s) Oral BID 09/12/19 21 021 Inactive Okay to dispense one 2gm tab if you have that available. amlodipine 10 mg tablet RxNorm: 745854 Take 1 Tablet(s) Oral QD 09/04/19 022 Inactive aspirin 81 mg tablet,delayed release RxNorm: 456524 Take 1 Tablet(s) Oral QD 09/04/19 21 021 Inactive Levemir FlexTouch U-100 Insulin 100 unit/mL (3 mL) subcutaneous pen RxNorm: 096945 Inject 150 Unit(s) Subcutaneous BID 09/04/19 21 022 Inactive venlafaxine ER 150 mg tablet,extended release 24 hr RxNorm: 361347 Take 1 Tablet(s) Oral QD 09/04/19 21 021 Inactive clotrimazole-betame thasone 1 %-0.05 % topical cream RxNorm: 389767 Apply to rash on red area on left abdomen/chest Topical BID 08/10/19 21 021 Inactive amlodipine 5 mg tablet RxNorm: 393851 Take 1 Tablet(s) Oral QD 07/31/19 21 021 Inactive cephalexin 500 mg tablet RxNorm: 103885 Take 1 Tablet(s) Oral BID BID - Twice Daily 07/31/19 21 021 Inactive Start 08/01/20 pantoprazole 40 mg tablet,delayed release RxNorm: 035088 Take 1 Tablet(s) Oral QAM every morning 07/08/19 022 Inactive senna 8.6 mg tablet RxNorm: 100110 Take 1 Tablet(s) Oral QD 07/08/19 022 Inactive carbamazepine 200 mg tablet RxNorm: 926548 Take 1 Tablet(s) Oral BID 07/08/19 022 Inactive clopidogrel 75 mg tablet RxNorm: 355392 Take 1 Tablet(s) Oral QD 07/08/19 021 Inactive Blood Glucose Test strips RxNorm: Use 1 Test Strip QID at PRN 07/08/19 Inactive E11.42 Novolog Flexpen U-100 Insulin aspart 100 unit/mL (3 mL) subcutaneous RxNorm: 7175155 Administer per sliding scale Milliliter(s) Subcutaneous TID 151-200: 10 u; 201-250: 20 u; 251-300: 30 u; 301-350: 40 u; 351-400: 50 u. 07/08/19 21 022 Inactive lisinopril 5 mg tablet RxNorm: 427803 Take 1 Tablet(s) Oral QD 07/08/19 021 Inactive Novolog Flexpen U-100 Insulin aspart 100 unit/mL (3 mL) subcutaneous RxNorm: 9537551 Inject 85 Unit(s) Subcutaneous TID 07/08/19 022 Inactive pravastatin 80 mg tablet RxNorm: 484480 Take 1 Tablet(s) Oral QHS every night at bedtime 07/08/19 21 023 Inactive clotrimazole 1 % topical cream RxNorm: 721905 Apply to bilateral groin areas Topical BID 07/08/19 022 Inactive metoprolol succinate ER 200 mg tablet,extended release 24 hr RxNorm: 688133 Take 1 Tablet(s) Oral QD 07/08/19 21 021 Inactive Vitamin D3 25 mcg (1,000 unit) tablet RxNorm: 250283 Take 1 Tablet(s) Oral QD 07/08/19 021 Inactive isosorbide dinitrate 30 mg tablet RxNorm: 516623 Take 1 Tablet(s) Oral QD 07/08/19 021 Inactive Levemir FlexTouch U-100 Insulin 100 unit/mL (3 mL) subcutaneous pen RxNorm: 731254 Inject 140 Unit(s) Subcutaneous BID 07/08/19 021 Inactive torsemide 20 mg tablet RxNorm: 488848 Take 1 Tablet(s) Oral QD 07/08/19 023 Inactive venlafaxine 75 mg tablet RxNorm: 359110 Take 1 Tablet(s) Oral QD 07/08/19 021 Inactive acetaminophen 500 mg tablet RxNorm: 523778 Take 1 Tablet(s) Oral TID as needed for headache 06/18/19 21 021 Inactive acetaminophen 500 mg tablet RxNorm: 879350 Take 1 Tablet(s) Oral TID as needed for headache 06/18/19 021 Inactive Lyrica 100 mg capsule RxNorm: 387407 Take 1 Capsule(s) Oral QHS every night at bedtime 06/11/19 021 Inactive Lyrica 50 mg capsule RxNorm: 767621 Take 1 Capsule(s) Oral QAM every morning 06/10/19 21 021 Inactive hydrocortisone 2.5 % topical cream RxNorm: 600565 Apply to bilateral groin creases Topical BID 05/15/20 20 021 Inactive clotrimazole 1 % topical cream RxNorm: 312078 Apply to bilateral groin areas Topical BID 05/15/20 20 021 Inactive Lyrica 50 mg capsule RxNorm: 439279 Take 1 Capsule(s) Oral QAM every morning 05/14/20 20 12/29/2 020 Inactive Lyrica 100 mg capsule RxNorm: 289304 Take 1 Capsule(s) Oral QHS every night [...] Inactive Nystop 100,000 unit/gram topical powder RxNorm: 885439 Apply to abd folds, under breasts and L side of groin Topical BID x 14 days, then BID PRN 04/08/20 20 Inactive dx: yeast dermatitis Lyrica 100 mg capsule RxNorm: 933772 Take 1 Capsule(s) Oral QHS every night at bedtime 03/13/20 20 Inactive Lyrica 50 mg capsule RxNorm: 552851 Take 1 Capsule(s) Oral QAM every morning 03/13/20 20 Inactive ketoconazole 2 % shampoo RxNorm: 467163 Apply Topical two times a week with showers 03/11/20 20 024 Inactive cholecalciferol (vitamin D3) 50 mcg (2,000 unit) tablet RxNorm: 449409 Take 1 Tablet(s) Oral QD 03/11/20 20 Inactive Zetia 10 mg tablet RxNorm: 349714 Take 1 Tablet(s) Oral QD 03/07/20 20 021 Inactive Zetia 10 mg tablet RxNorm: 129726 Take 1 Tablet(s) Oral QD 10/22 Inactive Lyrica 50 mg capsule RxNorm: 883060 Take 1 Capsule(s) Oral QAM every morning 02/15/20 Inactive Lyrica 100 mg capsule RxNorm: 743630 Take 1 Capsule(s) Oral QHS every night at bedtime 02/15/20 Inactive Lyrica 100 mg capsule RxNorm: 704978 Take 1 Capsule(s) Oral QHS every night at bedtime 02/15/20 Inactive Lyrica 50 mg capsule RxNorm: 487585 Take 1 Capsule(s) Oral QAM every morning 02/15/20 Inactive metoprolol succinate ER 200 mg tablet,extended release 24 hr RxNorm: 077391 Take 1 Tablet(s) Oral QD 08/11 Activeloperamide 2 mg capsuleRxNorm: 232839Hidl 1 Capsule(s) Oral QID as needed 06/12/2021ctivehydralazine 50 mg tabletRxNorm: 637302Rarq 1 Tablet(s) Oral QID 08/11/2022ctivevenlafaxine ER 75 mg capsule,extended release 24 hrRxNorm: 982385Gthq 3 Capsule(s) Oral QD/Inactivepolyethylene glycol 3350 17 gram/dose oral powderRxNorm: 458782Thpm 17=1 capful Gram(s) Oral BID as needed mix with 4-8oz of vnvqih06/Inactiveicosapent ethyl 1 gram capsuleRxNorm: 0158768Noou 2 Capsule(s) (2 gm) Oral BID with meals /InactiveOkay to dispense one 2gm tab if you have that available.Levemir FlexTouch U-100 Insulin 100 unit/mL (3 mL) subcutaneous pen RxNorm: 237708Qohffd 80 Unit(s) Subcutaneous BID/Inactive Novolog Flexpen U-100 Insulin aspart 100 unit/mL (3 mL) subcutaneousRxNorm: 8257879Qiquqz 30 Unit(s) Subcutaneous TID with mealsInactive Medication [...] Code Item Item Code Result Date [facility] Location [facility] 31948-7 02/08/2024 Unknown PHQ9 PHQ9 71294-6 4 02/08/2024 Unknown Procedures Procedure Codes Date SYS BP LESS 140 CPT-4: G8752 02/08/2024 CUI BP LESS 90 CPT-4: G8754 02/08/2024 DEBRIDE NAIL 1-5 CPT-4: 65999 02/08/2024 PT INELIG NEG SCRN DEPRES SNOMED CT: 428 [id number] CPT-4: S423049 Vital Signs Date Vital 02/08/2024 Blood Pressure 1: 124/78 Code: 8480-6 BMI: NaN Code: 49842-3 Heart Rate 1: 72 bpm Code: 8867-4 Height: 5'6 Code: 8302-2 Respiratory Rate: 18 bpm SpO2: 93% Temperature: 36.7 (C) / 98.0 (F) Weight: 400 lbs Code: 3141-9 Functional Status Functional / Cognitive Codes Status [...] Performer Location Location Address Codes Cristiano e ([id number]) Medicare Annual Well ness Visit- Subsequent Diagnosis: Amputated toe of right foot[ICD10: S98.131A] Diagnosis: BMI 60.0-69.9, adult[ICD10: Z68.44] Diagnosis: Diabetic neuropathy associated with type 2 diabetes mellitus[ICD10: E11.40] Diagnosis: Hypercoagulable state[ICD10: D68.59] Diagnosis: Hyperlipidemia associated with type 2 diabetes mellitus[ICD10: E11.69] Diagnosis: Major depression, recurrent[ICD10: F33.9] Diagnosis: Paraparesis of both lower limbs[ICD10: G82.20] Diagnosis: PVD (peripheral vascular disease)[ICD10: I73.9] Diagnosis: Seizure disorder[ICD10: G40.909] Diagnosis: Stage 2 chronic 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[ICD10: E11.22] Diagnosis: Type 2 diabetes mellitus with diabetic polyneuropathy, with long-term current use of insulin[ICD10: E11.42] Diagnosis: Annual physical exam[ICD10: Z00.00] Diagnosis: Candidal intertrigo[ICD10: B37.2] Diagnosis: Constipation by delayed colonic transit[ICD10: K59.01] Diagnosis: History of anemia due to CKD[ICD10: N18.9] Diagnosis: Hx of deep venous thrombosis[ICD10: Z86.718] Diagnosis: Hypertensive heart disease without heart failure[ICD10: I11.9] Diagnosis: Hypokalemia[ICD10: E87.6] Diagnosis: Learning disability[ICD10: F81.9] Diagnosis: Low back pain[ICD10: M54.50] Diagnosis: Lower extremity edema[ICD10: R60.0] Diagnosis: Onychogryposis[ICD10: L60.2] Diagnosis: Physical deconditioning[ICD10: R53.81] Diagnosis: Pressure ulcer of left calf, unstageable[ICD10: L89.890] Diagnosis: Reducible umbilical hernia[ICD10: K42.9] Diagnosis: Vitamin D deficiency[ICD10: E55.9] Diagnosis: Advance care planning[ICD10: Z71.89]Harrison Wiseman on [id number] [place] [address]IXV-0: [id number]) Home or Residence Visit Est Pt - Low Level, 30 mins Diagnosis: [ICD9: ] Diagnosis: [ICD9: ] Diagnosis: [ICD9: ] Diagnosis: [ICD9: ] Diagnosis: [ICD9: ] Diagnosis: [ICD9: ] Diagnosis: [ICD9: ] Diagnosis: [ICD9: ] Diagnosis: [ICD9: ] Diagnosis: [ICD9: ] Diagnosis: [ICD9: ] Diagnosis: [ICD9: ] Diagnosis: [ICD9: ] Diagnosis: [ICD9: ] Diagnosis: [ICD9: ] Diagnosis: [ICD9: ] Diagnosis: [ICD9: ] Diagnosis: [ICD9: ] Diagnosis: [ICD9: ] Diagnosis: [ICD9: ] Diagnosis: [ICD9: ] Diagnosis: [ICD9: ] Diagnosis: [ICD9: ] Diagnosis: [ICD9: ] Diagnosis: [ICD9: ] Diagnosis: [ICD9: ] Diagnosis: [ICD9: ]Harrison Wiseman on [id number] [place] [address]BNW-9: [id number] Plan of Care Planned Activity Notes Codes Status Date Patient Education: Patient Medication Summary Hofjwwdhx99/24/2024atient Education: Addiction and Substance AbuseCompleted 02/08/2024atient Education: TcfymvexeEkhdwidvn13/24/2024atient Education: Exercise and TtbdmteAqoganwkg84/24/2024ppointment: Harrison Munson WPtel: [address] [facility] [address] [id number] USF/U001/11/2024ppointment: Sandra Clark WPtel: [address] [facility] [address] [id number] [facility] Psych Follow Up12/09/2022ppointment: Tapan Shirley WPtel: [address] [facility] [address] [id number] [facility]Referral: [facility] WPtel: [address] , [address] [id number] USReferralRecords Xkiekzys23/08/2023ppointment: Tapan Shirley WPtel: [address] [facility] [address] [id number] USF/U008/11/2022ppointment: Tapan Shirley WPtel: [address] [facility] [address] [id number] USF/U007/14/2022ppointment: Tapan Shirley WPtel: [address] [facility] [address] [id number] USF/U02Referral: [facility] WPtel: [address] [id number] JEIrebquxhPtlrxeizq26/12/2022Referral: General CardiologyReferralCompleted 1Referral: General PsychologistReferralClosedReferral: General PsychiatristReferralPatient/Family [...] to [facility] to have closer nursing attention. Sister Jyotsna involved in his care cell# [phone] Guardian: Giulia (tapan met in person 09/01/21), [...] Martines note from 11.08.2023 at [facility] (follow up 6 months)Colon & Rectal Surgery visit scheduled for 03/08/24 with Matilde Pérez PA-C. 02/08/2024 Candidal intertrigo Managed with Nystatin powder and Clotrimazole cream.?? Monitor for skin breakdown.?? Personal hygiene is important.?? No acute or worsening symptoms today.?? Paraparesis of both lower limbs Chronic bilateral LE paraparesis/weakness, with muscular and neurological involvement contributing to gait instability, falls and limiting mobility increasing risk of morbidity and mortality.?? Comorbid: obesity, DM2 with peripheral neuropathy, PVD.?? Utilizes walker. Unable to use stairs. Living in basement of . Can use patio door an ramp to get to driveway. PT order placed last visit although no services will come to his home unfortunately. Will follow upwith nursing to see if he would have rides to outpatient PT.?? Hypercoagulable state Monitor for S&S of thrombus formation. NO S&S present today. Continue Aspirin and Eliquis as ordered.?? Seizure disorder No recent seizure activity reported.?? Continue Carbamazepine 200 mg BID.?? Does not follow with neurology.?? Staff to monitor for seizure activity and update PCP.?? Diabetic neuropathy associated with type 2 diabetes mellitus Bilateral neuropathy of feet.?? Thumping pain Continue Lyrica in the AM and PM as this is helping.?? Refill sent yesterday as facility has changed pharmacies and the new pharmacy requires a new prescription to be sent.?? Continue plan of care.?? Monitor skin integrity.?? Amputated toe of right foot Past amputation due to infection.?? Healed well.?? No open skin or skin integrity concerns at amputation site today.?? Monitor for skin breakdown and proper hygiene is important.?? History of anemia due to CKD Lab work in September and March.?? No iron supplementation at this time.?? Hx of deep venous thrombosis DVT in 2020. Remains on anticoagluation due to significant co-morbidities increasing his risk for further DVT formation including: severe obesity, sedentary lifestyle, limited mobility, DM2, HLD, HTN.?? Continue: Aspirin 81 mg QD and Eliquis 5 mg BID.?? 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 Monitor for unilateral edema, redness, pain to lower extremities.?? Stage 2 chronic 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 CKD stage 2: creatinine 1.0 and eGFR 84.?? High amounts of insulin prescribed by spike maker. Follows with them every 6 months.?? Next lab work to be completed in March.?? Treatment for comorbidities in place - hypertension, hyperlipidemia, diabetes.?? Hypokalemia 11.03.2023: ER labs (CBC, CMP K 3.9 Creat 1.0 eGFR 84) Will follow up with lab work in March.?? Continue KCl 40 mEq BID.?? Physical deconditioning In home PT was unsuccessful to be set up for Leonid.?? Will place outpatient PT referral today.?? PT, strengthening, activity will benefit him in multiple ways: pain, balance, weight loss, diabetesmanagement, overall health and well-being.?? Constipation by delayed colonic transit Denies recent concerns with bowel movements. Daily BMs reported.?? Colon & Rectal Surgery visit scheduled for 03/08/24 with VALERIY Rogers. for hemorrhoids.?? Continue miralax and senna daily along with PRN suppositories when needed.?? Monitor for worsening constipation or loose stools and adjust treatment plan accordingly. Staff to notify [facility] if they see signs of an??ileus or bowel obstruction. [facility] AWV completed today 02.08.2024.?? Preventive health counseling reviewed including: regular physical exercise, healthy diet/nutrition,vision screening, hearing screening, preventive dental visits.?? Nonsmoker.?? MIIC reviewed. Due for COVID and Influenza vaccines. Vaccination history reviewed and patient is due for vaccine(s) as outlined in the History/Preventative Care section above. Colon cancer screening: refused in 2022. Refused again today.?? Will order PSA with scheduled lab work in March.?? Hyperlipidemia associated with type 2 diabetes mellitus Lipid panel due .?? High amounts of insulin prescribed by spike maker and continues to have high BG. High BG can beleading to high lipid panel results as well.?? Does not have good dietary intake; facility staff make and serve the food. When I am onsite for meals; no fresh fruit or veggies have been noted. Facility does not follow heart healthy diet unfortunately.?? Medications include: Vascepa 2 gram BID. Rosuvastatin 40 mg QD. Ezetimine 10 mg QD.?? Continue above medication.?? Major depression, recurrent Feels depressed at baseline.?? Spends his entire day isolated in his bedroom. Unable to use stairs in house to get upstairs. Very minimal human interaction or outside time for fresh air and natural sunlight.?? Thankfully does have visits from PCP and [facility] monthly.?? Continue: Abilify 7.5 mg QD and Venlafaxine 225 mg QD. PVD (peripheral vascular disease) Complicated with severe obesity, CAD, and DM2.?? Continue Torsemide and potassium chloride.?? Did place referral for in home [place] [facility] for woulds on lower left calf although no services available at his location.?? He is at high risk for impaired healing and infection due to his diabetes.?? We will follow skin integrity closely at each monthly visit.?? Vitamin D deficiency serum level checked in (32) - continue supplementation.?? Encouraged him to spend time outside in the sunshine.?? Pressure ulcer of left calf, unstageable Left LE with three scabs present today. No open areas of skin.?? Could not get [place] [facility] to come to his home unfortunately.?? Continue with daily and PRN: hygiene, keep skin clean and dry. Apply bacitracin to funes. Monitor for redness, warmth, fever, pain.?? Hypertensive heart disease without heart failure Multiple anti-hypertensives on board.?? Currently taking:?? Amlodipine 10 mg QD. Chlorthalidone 25 mg QD.Hydralazine 50 mg QID. Isosorbide mononitriate ER 60 mg QD. Metoprolol ER 200 mg QD. Potassium chloride ER 40 mEq BID. Torsemide 20 mg QD.?? Aspirin 81 mg QD.?? Treatment for HLD and DM2 on board.?? Blood pressure at goal today.?? Unsure of last date of cardiology follow up.?? Today denies chest pain, palpitations, shortness of breath, lightheadedness, or falls recently.?? Labs will be ordered for follow up in March.?? Onychogryposis 4 toenails tended to today.?? Left great toenail will likely fall off.?? No signs of infection today or ingrown toenails.?? Low back pain ER visit for low back pain.?? December visit orders for in home PT although nursing staff unable to set up for him.?? Will refer to out patient PT today.?? Denies low back pain today although could very much so benefit from PT for overall well-being.?? Lower extremity edema Non pitting edema Compression socks daily Continue Torsemide 20 mg QD and KCL 40 mEq BID.?? Nursing staff unable to get in home [place] [facility] to come to the facility. Support at this facility is difficult for wound cares and to obtain outside collaboration unfortunately due to the location.?? Left LE wounds are closed today; scabs present.?? Monitor closely, proper hygiene important.?? Reducible umbilical hernia Chronic. Asymptomatic.?? Continue to monitor for: pain, strangulation, constipation.?? Continue miralax and senna.?? BMI 60.0-69.9, adult Wt today: Education provided on healthy dietary intake. It is difficult for him as staff prepare and serve his meals. Encouraged to ask for lean protein, fruits, veggies, water for hydration.?? PT referral placed at last visit although nursing staff unable to find in home PT company that would come out to his home due to the location. This is unfortunate as PT for his back could have also helped increase his activity for weight loss and overall health.?? PCP asked nursing if there was a way Leonid could get a ride to PT although no response was given priscilla Seth. Nursing staff not present at house during PCP rounds.?? Type 2 diabetes mellitus with diabetic polyneuropathy, with long-term current use of insulin [facility]: 11.26.2023. Torie Martines MD. Freestyle Chema. BG QID 240-320 Currently Basaglar 30 units BID and regular insulin 100 units TID and Ozempic 1 mg weekly. PLAN: A1c now and BMP/Lipid/TSH before next appt. Stop Ozempic. Diabets educator recommended to reach out to staff. Increase Basaglar to 40 units BID and continue Humulin R 100 units with each meal. F/U sixmoths (). Continue close follow up with spike maker.?? Last eye exam documented to be . Will recommend he see an eye doctor again for an exam. Lookslike he has gone to [facility] in the past.?? Education is provided on healthy dietary intake, water intake, physical activity/movement after each meal/snack.?? Learning disability Unknown severity.?? Today reports finished highschool - 12th grade.?? Low SLUMS score could be affected by this.?? Able to answer questions about his health.?? Living in supportive environment.??.02/08/2024
--- OUTSIDE RECORDS SUMMARY | 2024-02-19 13:21 | XMS_ITS | CCD ---
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 Ripper Operator Name Role Phone Arpit MCKINLEY-CHarrison Primary Care Provider Leona vailable Arpit AIR MOVING TECHNICIAN-C, [facility] U navailable Summary Purpose DataExchange Insurance Providers Payer name Policy type / Coverage type Covered alliance party ID Effective Begin Date Effective End Date [place] [id number] Unknown Unknown Medicaid [place] [id number] Unknown Unknown Family history Sister Brittany Suggs Diagnosis Age At Onset No Family Disease Entered N/A Runs in the family Diagnosis Age At Onset No Known Diseases N/A Sister Blanka Mcduffie Diagnosis Age At Onset No Family Disease Entered N/A Social History Social History Element Codes Description Effec tive Dates Tobacco history SNOMED CT: 236841585 Never smoker 01/16 Sexually Active? Unknown No [...] 10/07/2021 Living arrangements Unknown [facility] 09/03/[address]: 590311885 No Alcohol Consum ption 09/02/2020 Allergies, Adverse Reactions, Alerts Substance Reaction Codes Entered Date Inactivated Date Status * NO KNOWN FOOD ALLERGIES Xcqtbmh4207/13/2023No Inactive DateActiveLISINOPRILRxNorm: 2160734No Inactive DateActiveMetformin QRdOvlkhoz21/28/2020No Inactive DateActive* NO KNOWN ENVIRONMENTAL DETTSQGNQTmekmhx36/27/2024No Inactive DateActive Problems Condition Codes Effective Dates [...] E55.9 ICD-9: 268.909/ctiveCallus of heelICD-10: L84 ICD-9: 93431/esolvedGout due to renal impairmentICD-10: M10.30 ICD-9: 274.1005/esolvedHyperhidrosis of palmsICD-10: L74.512 ICD-9: 705.2105esolvedHyperlipidemia, unspecifiedICD-10: E78.5 ICD-9: 272.405/esolvedOther intermediate (current) drug therapyICD-10: Z79.899 ICD-9: V58.6905/esolvedPain of [...] L91.8 ICD-9: 701.904/esolvedCoronary artery disease involving [place] coronary artery of [place] heart, angina presence unspecifiedICD-10: I25.10 ICD-9: 414.0102/ctiveInappropriate sexual behaviorICD-10: Z72.89 ICD-9: 312.8910/ctivePre-op evaluationICD-10: Z01.818 ICD-9: V72.8403/ctiveSecondary hypertensionICD-10: I15.9 ICD-9: 405.9903/ctiveDepressionICD-10: F32.9 ICD-9: 22024/esolvedDVT (deep venous thrombosis)ICD-10: I82.409 ICD-9: 453.4009/esolvedEncounter for [...] to other viral communicable diseasesICD-10: Z20.828 ICD-9: V01.7902/0883ChvmoggzVaqweshpLfiasaw29/28/2020ActiveDiabetes mellitus Type 0Didirja28/28/2020ActiveAnemia in chronic kidney diseaseICD-10: D63.1 02/12/2020ResolvedHyperlipidemia, unspecifiedICD-10: E78.Resolved Medications Medication Codes Instructions Start Date Stop Date Status Fill Instructions Humulin R U-500 (Concentrated) Insulin 500 unit/mL subcutaneous soln RxNorm: 280620 Inject 100 Unit(s) Subcutaneous TID 02/17/20 24 08/14/ 025 Active Basaglar KwikPen U-100 Insulin 100 unit/mL (3 mL) subcutaneous RxNorm: 0482203 Inject 30 Unit(s) Subcutaneous BID 02/10/20 24 024 Active Please dispense one month supply. Humulin R U-500 (Concentrated) Insulin 500 unit/mL subcutaneous soln RxNorm: 753969 Inject 100 Unit(s) Subcutaneous TID 02/10/20 24 Inactive pregabalin 100 mg capsule RxNorm: 807803 Take 1 Capsule(s) Oral QAM every morning 02/07/20 24 024 Active isosorbide mononitrate ER 60 mg tablet,extended release 24 hr RxNorm: 652696 Take 1 Tablet(s) Oral QD 02/01/20 24 025 Active aripiprazole 15 mg tablet RxNorm: 774424 Take 1/2 Tablet(s) Oral QD 02/01/20 24 Active torsemide 20 mg tablet RxNorm: 745476 1 TAB ORALLY DAILY (DX: EDEMA) 01/27/20 No Stop Date Active potassium chloride ER 20 mEq tablet,extended release(part/cryst) RxNorm: 2940841 2 TABS (40MEQ) ORALLY TWICE DAILY (DX: HYPOKALEMIA) 01/27/20 No Stop Date Active cephalexin 500 mg capsule RxNorm: 791641 Take 1 Capsule(s) Oral QID 12/17/19 24 024 Inactive cephalexin 500 mg capsule RxNorm: 590396 Take 1 Capsule(s) Oral QID 12/17/19 24 024 Inactive acetaminophen 500 mg tablet RxNorm: 643514 (MAX APAP:4GM/24HR) Take 1 Tablet(s) Oral TID as needed for pain 12/10/19 24 024 Active torsemide 20 mg tablet RxNorm: 116356 Take 1 Tablet(s) Oral QD 10/26/19 24 024 Inactive potassium chloride ER 20 mEq tablet,extended release RxNorm: 19800522 Take 2 Tablet(s) Oral BID 10/26/19 24 025 Active torsemide 20 mg tablet RxNorm: 387437 Take 1 Tablet(s) Oral QD 10/26/19 24 024 Inactive potassium chloride ER 20 mEq tablet,extended release RxNorm: 19800522 Take 2 Tablet(s) Oral BID 10/26/19 24 024 Inactive Artificial Tears (PF) 0.1 %-0.3 % drops in a dropperette RxNorm: 077466 Apply 1-2 Drop(s) Both eyes BID as needed 09/28/19 24 025 Active erythromycin 5 mg/gram (0.5 %) eye ointment RxNorm: 881323 Apply 1 Application Both eyes QHS every night at bedtime Instill ~1 cm ribbon into affected eye 09/28/19 24 024 Inactive Artificial Tears (PF) 0.1 %-0.3 % drops in a dropperette RxNorm: 975279 Apply 1-2 Drop(s) Both eyes BID as needed 09/28/19 24 024 Inactive erythromycin 5 mg/gram (0.5 %) eye ointment RxNorm: 500456 Apply 1 Application Both eyes QHS every night at bedtime Instill ~1 cm ribbon into affected eye 09/28/19 24 024 Inactive acetaminophen 500 mg tablet RxNorm: 584156 (MAX APAP:4GM/24HR) Take 1 Tablet(s) Oral TID as needed for pain 09/24/19 24 024 Inactive carvedilol 25 mg tablet RxNorm: 094786 Take 1 Tablet(s) Oral QD 09/08/19 24 No Stop Date Active pregabalin 100 mg capsule RxNorm: 773247 Take 1 Capsule(s) Oral QAM every morning 09/07/19 24 024 Inactive rosuvastatin 40 mg tablet RxNorm: 130231 Take 1 Tablet(s) Oral QPM every evening 07/13/19 24 No Stop Date Active ezetimibe 10 mg tablet RxNorm: 960244 Take 1 Tablet(s) Oral QD 07/13/19 24 No Stop Date Active bisacodyl 10 mg rectal suppository RxNorm: 034271 Insert 1 Suppository Rectal QD as needed 07/13/19 24 No Stop Date Active polyethylene glycol 3350 17 gram/dose oral powder RxNorm: 878973 Take 17 Gram(s) Oral BID as needed mix in 4-8ox water 07/13/19 24 No Stop Date Active ketoconazole 2 % shampoo RxNorm: 953946 Apply 1 Application Topical UD as directed 07/13/19 24 No Stop Date Active Ozempic 1 mg/dose (4 mg/3 mL) subcutaneous pen injector RxNorm: 7101172 Inject 1 Milligram(s) Subcutaneous QW once a week 07/13/19 24 No Stop Date Active Guaifenesin AC 10 mg-100 mg/5 mL oral liquid RxNorm: 619732 Take 10 Milliliter(s) Oral Q4H every four hours as needed 07/13/19 24 No Stop Date Active ammonium lactate 12 % topical cream RxNorm: 131498 Apply 1 Application Topical BID 07/13/19 24 No Stop Date Active hydrocortisone 2.5 % topical cream RxNorm: 773765 Apply 1 Application Topical BID as needed 07/13/19 24 No Stop Date Active rosuvastatin 20 mg sprinkle capsule RxNorm: 2998866 Take 1 Capsule(s) Oral QD 07/13/19 24 No Stop Date Active Vascepa 1 gram capsule RxNorm: 5385908 Take 2 Capsule(s) Oral BID 07/13/19 24 No Stop Date Active venlafaxine ER 75 mg capsule,extended release 24 hr RxNorm: 849459 Take 3 Capsule(s) Oral QD 07/13/19 24 No Stop Date Active aripiprazole 15 mg tablet RxNorm: 474533 Take 1/2 Tablet(s) Oral QD 07/13/19 24 024 Inactive isosorbide mononitrate ER 60 mg tablet,extended release 24 hr RxNorm: 220697 Take 1 Tablet(s) Oral QD 07/13/19 24 024 Inactive Basaglar KwikPen U-100 Insulin 100 unit/mL (3 mL) subcutaneous RxNorm: 4082447 Inject 30U SubQ twice daily 07/07/19 24 024 Inactive Please dispense one month supply. Basaglar KwikPen U-100 Insulin 100 unit/mL (3 mL) subcutaneous RxNorm: 5310230 Inject 30U SubQ twice daily 07/07/19 24 024 Inactive Please dispense one month supply. pregabalin 150 mg capsule RxNorm: 967080 Take 1 Capsule(s) Oral QHS every night at bedtime 07/05/19 24 024 Inactive pregabalin 150 mg capsule RxNorm: 418351 Take 1 Capsule(s) Oral QHS every night at bedtime 07/05/19 024 Inactive polyethylene glycol 3350 17 gram/dose oral powder RxNorm: 054162 Take 1 Packet Oral QD as needed (1 packet = 17g) mix with 4-8oz of liquid 06/15/19 024 Inactive bisacodyl 10 mg rectal suppository RxNorm: 812491 Insert one suppository per rectum once daily as needed for constipation 06/15/19 024 Inactive bisacodyl 10 mg rectal suppository RxNorm: 691107 Insert one suppository per rectum once daily as needed for constipation 06/15/19 024 Inactive pregabalin 100 mg capsule RxNorm: 644825 Take 1 Capsule(s) Oral QAM every morning 04/27/20 024 Inactive Levemir FlexPen 100 unit/mL (3 mL) solution subcutaneous insulin pen RxNorm: 815515 Inject 30 Unit(s) Subcutaneous BID 04/27/20 024 Inactive rosuvastatin 40 mg tablet RxNorm: 890090 Take 1 Tablet(s) Oral QPM every evening 04/16/20 024 Inactive D/C rosuvastatin 20mg venlafaxine ER 75 mg capsule,extended release 24 hr RxNorm: 387731 Take 3 Capsule(s) Oral QD 04/14/20 023 Inactive pregabalin 100 mg capsule RxNorm: 347561 Take 1 Capsule(s) Oral QAM every morning [...] meter clotrimazole 1 % topical cream RxNorm: 232937 Take apply topically to abdominal folds twice daily for 14 days 03/12/20 024 Inactive Ozempic 1 mg/dose (4 mg/3 mL) subcutaneous pen injector RxNorm: 6121488 Inject 1 Milligram(s) Subcutaneous QW once a week 03/11/20 23 023 Inactive rosuvastatin 20 mg tablet RxNorm: 568263 Take 1 Tablet(s) Oral QD 02/26/20 23 023 Inactive d/c pravastatin 80mg Ozempic 1 mg/dose (4 mg/3 mL) subcutaneous pen injector RxNorm: 9734326 Inject 1 Milligram(s) Subcutaneous QW once a week 02/20/20 23 023 Inactive pregabalin 150 mg capsule RxNorm: 477826 Take 1 Capsule(s) Oral HS at bed time 02/19/20 23 023 Inactive pregabalin 100 mg capsule RxNorm: 035941 Take 1 Capsule(s) Oral QAM every morning 02/18/20 023 Inactive venlafaxine ER 75 mg capsule,extended release 24 hr RxNorm: 927028 Take 3 Capsule(s) Oral QD 02/04/20 23 023 Inactive FreeStyle Chema 2 Sensor kit RxNorm: use as directed 02/04/20 23 023 Inactive FreeStyle Chema 2 Sensor kit RxNorm: use as directed 02/04/20 23 024 Inactive fluconazole 150 mg tablet RxNorm: 114685 Take 1 Tablet(s) Oral on day 3 and on day 6 02/03/20 23 024 Inactive chlorthalidone 25 mg tablet RxNorm: 688822 Take 1 Tablet(s) Oral QAM every morning 02/03/20 23 No Stop Date Active venlafaxine ER 150 mg capsule,extended release 24 hr RxNorm: 641834 Take 1 Capsule(s) Oral QD 02/03/20 23 023 Inactive acetaminophen 500 mg tablet RxNorm: 850659 1 TABLET ORALLY 3 TIMES DAILY (MAX APAP:4GM/24HR) 12/15/19 23 023 Inactive clotrimazole 1 % topical cream RxNorm: 533798 apply 1g topically to top of feet and in between toes BID 07/25/ 023 Inactive potassium chloride ER 20 mEq tablet,extended release RxNorm: 635997 Take 1 Tablet(s) Oral BID 12/09/19 024 Inactive d/c 20mEq once daily (sent from hospital) nystatin 100,000 unit/gram topical powder RxNorm: 484168 APPLY TO AFFECTED AREAS TOPICALLY 2 TIMES DAILY 11/21/19 024 Inactive Nystop 100,000 unit/gram topical powder RxNorm: 646624 Apply to abd folds, under breasts and L side of groin Topical BID x 14 days, then BID PRN 11/20/19 023 Inactive dx: yeast dermatitis [place] Ultra Strength 4 %-30 %-10 % topical cream RxNorm: 530921 Apply 1 Gram(s) Topical QID PRN to feet and legs for neuropathic pain 11/11/19 024 Inactive clotrimazole 1 % topical cream RxNorm: 033675 Apply 1/2 Gram(s) Topical BID Apply to affected areas of groin, periarea, and abdominal topically 2 times daily 11/10/19 023 Inactive hydrocortisone 2.5 % topical cream RxNorm: 736993 Apply 1/2 Gram(s) Topical BID as needed 11/10/19 024 Inactive Levemir FlexPen 100 unit/mL (3 mL) solution subcutaneous insulin pen RxNorm: 215101 Inject 30 Unit(s) Subcutaneous BID 10/07/19 023 Inactive Humulin R U-500 (Concentrated) Insulin 500 unit/mL subcutaneous soln RxNorm: 479805 Inject 100 Unit(s) Subcutaneous TID 10/07/19 024 Inactive Ozempic 0.25 mg or 0.5 mg (2 mg/3 mL) subcutaneous pen injector RxNorm: 6351248 Inject 1/2 Milligram(s) Subcutaneous QW once a week 10/07/19 024 Inactive aripiprazole 15 mg tablet RxNorm: 712033 1/2 TAB (7.5MG) ORALLY DAILY (DX:MAJOR DEPRESSIVE DISORDER) 09/23/19 023 Inactive Lancets,Thin 28 gauge RxNorm: Use 1 as directed QID 09/15/19 23 024 Inactive Accu-Chek Guide test strips RxNorm: Use 1 Test Strip QID 09/15/19 23 023 Inactive ok to substitute with any covered alternative test strip torsemide 20 mg tablet RxNorm: 137044 Take 1 Tablet(s) Oral BID 09/09/19 23 024 Inactive d/c once daily dosing carvedilol 25 mg tablet RxNorm: 187591 Take 1 Tablet(s) Oral QD 08/25/19 23 024 Inactive pregabalin 150 mg capsule RxNorm: 587245 1 Capsule(s) Oral HS at bed time 08/18/19 23 023 Inactive pregabalin 100 mg capsule RxNorm: 220375 1 Capsule(s) Oral QAM every morning 08/18/19 23 023 Inactive carvedilol 25 mg tablet RxNorm: 895980 1 Tablet(s) Oral QD 07/28/19 23 023 Inactive lisinopril 20 mg tablet RxNorm: 850093 Give 1 Tablet(s) Oral QD 07/28/19 23 023 Inactive Lyrica 150 mg capsule RxNorm: 193505 Take 1 Capsule(s) Oral QHS every night at bedtime 07/19/19 23 023 Inactive d/c 100mg dose Diflucan 150 mg tablet RxNorm: 924204 Take 1 Tablet(s) Oral QD repeat on day 3 and 6 07/19/19 23 023 Inactive pregabalin 100 mg capsule RxNorm: 277106 Take 1 Capsule(s) Oral QAM every morning 07/19/19 23 023 Inactive gatifloxacin 0.5 % eye drops RxNorm: 109088 Instill 1 Drop(s) as directed TID Instill 1 drop in to affected eye(s) starting 1 day prior to surgery and continue until gone (do not exceed 4 weeks). 07/13/19 23 023 Inactive carvedilol 25 mg tablet RxNorm: 118021 2 Tablet(s) Oral BID 07/13/19 23 023 Inactive Humulin R Regular U-100 Insulin 100 unit/mL injection solution RxNorm: 252953 85 Unit(s) Injection TID 07/13/19 23 023 Inactive ketorolac 0.5 % eye drops RxNorm: 535242 Instill 1 Drop(s) as directed QID Instill 1 drop into affected eye(s) 4 times daily starting 1 day prior to surgery and continue until gone (do not exceed 4 weeks). 07/13/19 23 023 Inactive Diflucan 150 mg tablet RxNorm: 113753 Take 1 Tablet(s) Oral QD repeat on day 3 and 6 06/30/19 23 023 Inactive Accu-Chek Guide test strips RxNorm: Use 1 Test Strip QID Use 1 test strip to monitor blood glucose 4 times daily and as needed. Dx:E11.42. 06/23/19 23 023 Inactive ok to substitute with any covered alternative test strip dextromethorphan-gu aifenesin 10 mg-100 mg/5 mL oral liquid RxNorm: 002865 Take 10 Milliliter(s) Oral every 4 hours as needed for cough 06/19/19 23 023 Inactive dextromethorphan-gu aifenesin 10 mg-100 mg/5 mL oral liquid RxNorm: 337516 Take 10 Milliliter(s) Oral every 4 hours as needed for cough 06/19/19 23 023 Inactive Lyrica 150 mg capsule RxNorm: 846741 Take 1 Capsule(s) Oral QHS every night at bedtime 06/18/19 23 023 Inactive d/c 100mg dose aripiprazole 15 mg tablet RxNorm: 632198 / TAB (7.5MG) ORALLY DAILY (DX:MAJOR DEPRESSIVE DISORDER) 06/05/19 23 023 Inactive pregabalin 100 mg capsule RxNorm: 359504 1 Capsule(s) Oral QAM every morning 06/02/19 23 023 Inactive Banophen 50 mg capsule RxNorm: 2729831 Take 1 Capsule(s) Oral Q6H every 6 hours as needed 05/19/19 23 No Stop Date Active Novolog Flexpen U-100 Insulin aspart 100 unit/mL (3 mL) subcutaneous RxNorm: 9773804 Inject 10 Unit(s) Subcutaneous QHS every night at bedtime with nighttime snack 04/08/20 022 Inactive Novolog Flexpen U-100 Insulin aspart 100 unit/mL (3 mL) subcutaneous RxNorm: 9629853 Inject 42 Unit(s) Subcutaneous TID in addition to sliding scale 04/08/20 Inactive d/c 36u albuterol sulfate HFA 90 mcg/actuation aerosol inhaler RxNorm: 3656173 Take 2 Puff(s) Inhalation Q4H every four hours as needed as needed for SOB, cough, or wheezing 04/07/20 030 Active Banophen 50 mg capsule RxNorm: 2670143 Take 1 Capsule(s) Oral Q6H every 6 hours as needed 04/06/20 023 Inactive diphenhydramine 50 mg tablet RxNorm: 7774409 Take 1 Tablet(s) Oral Q6H every 6 hours as needed 04/06/20 022 Inactive diphenhydramine 50 mg tablet RxNorm: 2103625 1 Tablet(s) Oral Q6H every 6 hours as needed 04/06/20 022 Inactive Abilify 15 mg tablet RxNorm: 575830 1/2 Tablet(s) Oral QD 03/10/20 023 Inactive Shingrix (PF) 50 mcg/0.5 mL intramuscular suspension, kit RxNorm: 2767232 Administer 1/2 Milliliter(s) Intramuscular QD one time shingrix step 2 ( step 1 given 11/04/21) WITH needle - Nursing please administer upon arrival and once administered post a bridge message with date of administration, armored car guard, expiration date, and lot# so we can update [facility] 02/18/20 22 022 Inactive dispense with needle Shingrix (PF) 50 mcg/0.5 mL intramuscular suspension, kit RxNorm: 7249577 Administer 1/2 Milliliter(s) Intramuscular QD one time shingrix step 2 ( step 1 given 11/04/21) WITH needle - Nursing please administer upon arrival and once administered post a bridge message with date of administration, armored car guard, expiration date, and lot# so we can update [facility] 02/18/20 22 Inactive dispense with needle polyethylene glycol 3350 17 gram/dose oral powder RxNorm: 533967 Take 17=1 capful Gram(s) Oral QD mix with 4-8oz of liquid 01/08/20 22 023 Inactive take this in addition to BID prn order Lyrica 100 mg capsule RxNorm: 018728 Take 1 Capsule(s) Oral QAM every morning 01/08/20 22 022 Inactive d/c 50mg dose acetaminophen 500 mg tablet RxNorm: 202796 Take 1 Tablet(s) Oral TID 01/08/20 22 022 Inactive d/c PRN order Lyrica 150 mg capsule RxNorm: 470386 Take 1 Capsule(s) Oral QHS every night at bedtime 01/08/20 22 023 Inactive d/c 100mg dose Abilify 5 mg tablet RxNorm: 000640 Take 1 Tablet(s) Oral QD take 1 tab po QD #30 refill 5 dx: MDD 12/12/19 22 022 Inactive Abilify 5 mg tablet RxNorm: 510278 Take 1 Tablet(s) Oral QD take 1 tab po QD #30 refill 5 dx: MDD 12/12/19 22 022 Inactive Novolog Flexpen U-100 Insulin aspart 100 unit/mL (3 mL) subcutaneous RxNorm: 9812249 Inject 42 Unit(s) Subcutaneous TID in addition to sliding scale 12/10/19 22 022 Inactive d/c 36u chlorthalidone 25 mg tablet RxNorm: 354712 Take 1 Tablet(s) Oral QAM every morning 12/10/19 22 023 Inactive pregabalin 50 mg capsule RxNorm: 845589 Take 1 Capsule(s) Oral QAM every morning 11/12/19 22 022 Inactive tetanus-diphtheria toxoids-Td 2 Lf unit-2 Lf unit/0.5 mL IM suspension RxNorm: 139 Take 0.5 Miscellaneous Intramuscular 11/12/19 22 022 Inactive need tdap - nursing to administer upon arrival pregabalin 50 mg capsule RxNorm: 134065 Take 1 Capsule(s) Oral QAM every morning 10/16/19 22 022 Inactive pregabalin 50 mg capsule RxNorm: 270394 Take 1 Capsule(s) Oral QAM every morning 10/16/19 22 022 Inactive pregabalin 50 mg capsule RxNorm: 541173 1 Capsule(s) Oral QAM every morning 10/15/19 22 022 Inactive Shingrix (PF) 50 mcg/0.5 mL intramuscular suspension, kit RxNorm: 1114985 Administer 1/2 Milliliter(s) Intramuscular one time Nursing please administer upon arrival and once administered post a bridge message with date of administration, armored car guard, expiration date, and lot# so we can update [facility]. 10/09/19 22 022 Inactive shingrix step 1 Shingrix (PF) 50 mcg/0.5 mL intramuscular suspension, kit RxNorm: 9165469 Administer 1/2 Milliliter(s) Intramuscular one time Nursing please administer upon arrival and once administered post a bridge message with date of administration, armored car guard, expiration date, and lot# so we can update [facility]. 10/09/19 22 022 Inactive shingrix step 1 cholecalciferol (vitamin D3) 1,250 mcg (50,000 unit) capsule RxNorm: 515533 Take 1 Capsule(s) Oral QW once a [...] aspart 100 unit/mL (3 mL) subcutaneous RxNorm: 9541694 Inject 10 Unit(s) Subcutaneous QHS every night at bedtime with nighttime snack 10/08/19 22 Inactive Shingrix (PF) 50 mcg/0.5 mL intramuscular suspension, kit RxNorm: 5884505 ADMINISTER 2-DOSE SERIES PER CDC GUIDELINES 10/08/19 22 Active Shingrix (PF) 50 mcg/0.5 mL intramuscular suspension, kit RxNorm: 7226417 ADMINISTER 2-DOSE SERIES PER CDC GUIDELINES 10/08/19 22 Inactive Novolog Flexpen U-100 Insulin aspart 100 unit/mL (3 mL) subcutaneous RxNorm: 0556974 Inject 36 Unit(s) Subcutaneous TID in addition to sliding scale 10/08/19 22 Inactive Novofine Autocover 30 gauge x 1/3 needle RxNorm: Use 1 Miscellaneous UD as directed Use 1 needle as directed to administer insulin 5 times a day Dx:E11.42. 10/03/19 Inactive ok to substitute with any covered alternative pen needle benzoyl peroxide 10 % topical cleanser RxNorm: 364881 Apply 1 Application Topical QD apply to face, wash rinse and dry once daily (may change to QOD if drying) 08/19/19 022 Inactive (%covered by insurance) #60ml refill 11 dx: acne benzoyl peroxide 10 % topical cleanser RxNorm: 828146 Apply 1 Application Topical QD apply to face, wash rinse and dry once daily (may change to QOD if drying) 08/19/19 22 022 Inactive (%covered by insurance) #60ml refill 11 dx: acne benzoyl peroxide 10 % topical cleanser RxNorm: 848989 Apply 1 Application Topical QD apply to face, wash rinse and dry once daily (may change to QOD if drying) 08/19/19 22 022 Inactive (%covered by insurance) #60ml refill 11 dx: acne Lyrica 50 mg capsule RxNorm: 546856 Take 1 Capsule(s) Oral QAM every morning Take 1 capsule by mouth once daily 08/19/19 22 022 Inactive benzoyl peroxide 10 % topical cleanser RxNorm: 423552 Apply 1 Application Topical QD apply to face, wash rinse and dry once daily (may change to QOD if drying) 08/19/19 22 022 Inactive (%covered by insurance) #60ml refill 11 dx: acne Lyrica 100 mg capsule RxNorm: 527711 Take 1 Capsule(s) Oral QHS every night at bedtime Take 1 capsule by mouth once daily at bedtime 08/19/19 22 022 Inactive Lyrica 100 mg capsule RxNorm: 099461 Take 1 Capsule(s) Oral QHS every night at bedtime Take 1 capsule by mouth once daily at bedtime 08/16/19 22 022 Inactive Lyrica 50 mg capsule RxNorm: 390125 Take 1 Capsule(s) Oral QAM every morning Take 1 capsule by mouth once daily 08/16/19 22 022 Inactive Levemir FlexTouch U-100 Insulin 100 unit/mL (3 mL) subcutaneous pen RxNorm: 619505 Inject 86 Unit(s) Subcutaneous BID 08/05/19 22 022 Inactive d/c 83units BID Lyrica 100 mg capsule RxNorm: 530847 Take 1 Capsule(s) Oral QHS every night at bedtime Take 1 capsule by mouth once daily at bedtime 07/14/19 22 022 Inactive Lyrica 50 mg capsule RxNorm: 051448 Take 1 Capsule(s) Oral QAM every morning Take 1 capsule by mouth once daily 07/14/19 22 022 Inactive Levemir FlexTouch U-100 Insulin 100 unit/mL (3 mL) subcutaneous pen RxNorm: 062222 Inject 83 Unit(s) Subcutaneous BID 07/08/19 22 [...] test strip hydralazine 50 mg tablet RxNorm: 442401 Take 1 Tablet(s) Oral QID 05/05/20 21 022 Inactive venlafaxine ER 225 mg tablet,extended release 24 hr RxNorm: 042458 Take 1 Tablet(s) Oral QD 05/05/20 21 021 Inactive venlafaxine ER 225 mg tablet,extended release 24 hr RxNorm: 455063 Take 1 Tablet(s) Oral QD 05/05/20 21 022 Inactive isosorbide mononitrate ER 30 mg tablet,extended release 24 hr RxNorm: 118463 Take 1 Tablet(s) Oral QD 05/05/20 21 024 Inactive hydralazine 50 mg tablet RxNorm: 124256 Take 1 Tablet(s) Oral QID 05/05/20 21 021 Inactive aspirin 81 mg tablet,delayed release RxNorm: 222783 Take 1 Tablet(s) Oral QD 03/31/20 21 022 Inactive Vitamin D2 1,250 mcg (50,000 unit) capsule RxNorm: 5022938 Take 1 Capsule(s) Oral QW once a week x 12 weeks 03/31/20 022 Inactive Vitamin D2 1,250 mcg (50,000 unit) capsule RxNorm: 0048067 Take 1 Capsule(s) Oral QW once a week 03/31/20 021 Inactive Zetia 10 mg tablet RxNorm: 352482 Take 1 Tablet(s) Oral QD 03/31/20 024 Inactive Zetia 10 mg tablet RxNorm: 377134 Take 1 Tablet(s) Oral QD 03/31/20 021 Inactive hydralazine 25 mg tablet RxNorm: 482649 Take 1 Tablet(s) Oral QID 03/31/20 021 Inactive hydralazine 25 mg tablet RxNorm: 770186 Take 1 Tablet(s) Oral QID 03/31/20 021 Inactive hydralazine 10 mg tablet RxNorm: 841132 Take 1 Tablet(s) Oral QID 03/03/20 021 Inactive cephalexin 500 mg tablet RxNorm: 299324 Take 1 Tablet(s) Oral QID 02/27/20 021 Inactive cephalexin 500 mg tablet RxNorm: 882809 Take 1 Tablet(s) Oral QID 02/27/20 021 Inactive lisinopril 40 mg tablet RxNorm: 190125 Take 1 Tablet(s) Oral QD 02/11/20 023 Inactive Eliquis 5 mg tablet RxNorm: 4816409 Take 1 Tablet(s) Oral BID 01/05/20 022 Inactive Eliquis 5 mg tablet RxNorm: 0745185 Take 2 Tablet(s) Oral QD 01/01/20 21 021 Inactive Lyrica 50 mg capsule RxNorm: 285392 Take 1 Capsule(s) Oral QAM every morning 12/24/19 21 021 Inactive Lyrica 100 mg capsule RxNorm: 488608 Take 1 Capsule(s) Oral QHS every night at bedtime 12/24/19 021 Inactive clotrimazole 1 % topical cream RxNorm: 759614 Apply to right foot and toes Topical BID 12/04/19 21 023 Inactive metoprolol succinate ER 200 mg tablet,extended release 24 hr RxNorm: 460718 Take 1 Tablet(s) Oral QD 12/04/19 21 023 Inactive ciprofloxacin 500 mg tablet RxNorm: 519845 Take 1 Tablet(s) Oral QD 11/30/19 21 021 Inactive DX ofloxacin otic drops Accu-Chek Guide test strips RxNorm: USE 1 TO CHECK GLUCOSE 4 TIMES DAILY AND NEEDED 11/15/19 21 023 Inactive Blood Glucose Test strips RxNorm: Use 1 Test Strip QID at PRN 11/05/19 21 023 Inactive E11.42 lisinopril 30 mg tablet RxNorm: 681298 Take 1 Tablet(s) Oral QD 10/30/19 021 Inactive lisinopril 20 mg tablet RxNorm: 130175 Take 1 Tablet(s) Oral QD 10/23/19 021 Inactive lisinopril 20 mg tablet RxNorm: 555226 Take 1 Tablet(s) Oral QD 10/23/19 21 021 Inactive lisinopril 10 mg tablet RxNorm: 553946 Take 1 Tablet(s) Oral QD 10/02/19 21 021 Inactive icosapent ethyl 1 gram capsule RxNorm: 7275724 Take 2 Capsule(s) (2 gm) Oral BID with meals 09/12/19 024 Inactive Okay to dispense one 2gm tab if you have that available. icosapent ethyl 1 gram capsule RxNorm: 5595973 Take 2 Capsule(s) Oral BID 09/12/19 21 021 Inactive Okay to dispense one 2gm tab if you have that available. amlodipine 10 mg tablet RxNorm: 094192 Take 1 Tablet(s) Oral QD 09/04/19 21 022 Inactive aspirin 81 mg tablet,delayed release RxNorm: 636695 Take 1 Tablet(s) Oral QD 09/04/19 21 021 Inactive Levemir FlexTouch U-100 Insulin 100 unit/mL (3 mL) subcutaneous pen RxNorm: 385897 Inject 150 Unit(s) Subcutaneous BID 09/04/19 21 Inactive venlafaxine ER 150 mg tablet,extended release 24 hr RxNorm: 186848 Take 1 Tablet(s) Oral QD 09/04/19 Inactive clotrimazole-betame thasone 1 %-0.05 % topical cream RxNorm: 779830 Apply to rash on red area on left abdomen/chest Topical BID 08/10/19 Inactive amlodipine 5 mg tablet RxNorm: 801809 Take 1 Tablet(s) Oral QD 07/31/19 Inactive cephalexin 500 mg tablet RxNorm: 967360 Take 1 Tablet(s) Oral BID BID - Twice Daily 07/31/19 Inactive Start 08/01/20 pantoprazole 40 mg tablet,delayed release RxNorm: 560958 Take 1 Tablet(s) Oral QAM every morning 07/08/19 Inactive senna 8.6 mg tablet RxNorm: 780982 Take 1 Tablet(s) Oral QD 07/08/19 022 Inactive carbamazepine 200 mg tablet RxNorm: 985954 Take 1 Tablet(s) Oral BID 07/08/19 Inactive clopidogrel 75 mg tablet RxNorm: 749185 Take 1 Tablet(s) Oral QD 07/08/19 Inactive Blood Glucose Test strips RxNorm: Use 1 Test Strip QID at PRN 07/08/19 Inactive E11.42 Novolog Flexpen U-100 Insulin aspart 100 unit/mL (3 mL) subcutaneous RxNorm: 8882677 Administer per sliding scale Milliliter(s) Subcutaneous TID 151-200: 10 u; 201-250: 20 u; 251-300: 30 u; 301-350: 40 u; 351-400: 50 u. 07/08/19 21 Inactive lisinopril 5 mg tablet RxNorm: 482395 Take 1 Tablet(s) Oral QD 07/08/19 021 Inactive Novolog Flexpen U-100 Insulin aspart 100 unit/mL (3 mL) subcutaneous RxNorm: 9786018 Inject 85 Unit(s) Subcutaneous TID 07/08/19 21 022 Inactive pravastatin 80 mg tablet RxNorm: 433911 Take 1 Tablet(s) Oral QHS every night at bedtime 07/08/19 023 Inactive clotrimazole 1 % topical cream RxNorm: 595005 Apply to bilateral groin areas Topical BID 07/08/19 022 Inactive metoprolol succinate ER 200 mg tablet,extended release 24 hr RxNorm: 168495 Take 1 Tablet(s) Oral QD 07/08/19 21 021 Inactive Vitamin D3 25 mcg (1,000 unit) tablet RxNorm: 530970 Take 1 Tablet(s) Oral QD 07/08/19 021 Inactive isosorbide dinitrate 30 mg tablet RxNorm: 258509 Take 1 Tablet(s) Oral QD 07/08/19 021 Inactive Levemir FlexTouch U-100 Insulin 100 unit/mL (3 mL) subcutaneous pen RxNorm: 939650 Inject 140 Unit(s) Subcutaneous BID 07/08/19 21 021 Inactive torsemide 20 mg tablet RxNorm: 888863 Take 1 Tablet(s) Oral QD 07/08/19 21 023 Inactive venlafaxine 75 mg tablet RxNorm: 516635 Take 1 Tablet(s) Oral QD 07/08/19 021 Inactive acetaminophen 500 mg tablet RxNorm: 433889 Take 1 Tablet(s) Oral TID as needed for headache 06/18/19 021 Inactive acetaminophen 500 mg tablet RxNorm: 888801 Take 1 Tablet(s) Oral TID as needed for headache 06/18/19 21 021 Inactive Lyrica 100 mg capsule RxNorm: 556741 Take 1 Capsule(s) Oral QHS every night at bedtime 06/11/19 21 021 Inactive Lyrica 50 mg capsule RxNorm: 538010 Take 1 Capsule(s) Oral QAM every morning 06/10/19 21 021 Inactive hydrocortisone 2.5 % topical cream RxNorm: 910235 Apply to bilateral groin creases Topical BID 05/15/20 20 021 Inactive clotrimazole 1 % topical cream RxNorm: 998705 Apply to bilateral groin areas Topical BID 05/15/20 20 021 Inactive Lyrica 50 mg capsule RxNorm: 787452 Take 1 Capsule(s) Oral QAM every morning 05/14/20 20 020 Inactive Lyrica 100 mg capsule RxNorm: 141583 Take 1 Capsule(s) Oral QHS every night [...] Inactive Nystop 100,000 unit/gram topical powder RxNorm: 415371 Apply to abd folds, under breasts and L side of groin Topical BID x 14 days, then BID PRN 04/08/20 20 020 Inactive dx: yeast dermatitis Lyrica 100 mg capsule RxNorm: 472229 Take 1 Capsule(s) Oral QHS every night at bedtime 03/13/20 20 020 Inactive Lyrica 50 mg capsule RxNorm: 402543 Take 1 Capsule(s) Oral QAM every morning 03/13/20 20 020 Inactive ketoconazole 2 % shampoo RxNorm: 046315 Apply Topical two times a week with showers 03/11/20 20 024 Inactive cholecalciferol (vitamin D3) 50 mcg (2,000 unit) tablet RxNorm: 098664 Take 1 Tablet(s) Oral QD 03/11/20 20 Inactive Zetia 10 mg tablet RxNorm: 502948 Take 1 Tablet(s) Oral QD 03/07/20 20 Inactive Zetia 10 mg tablet RxNorm: 041601 Take 1 Tablet(s) Oral QD 03/07/20 20 Inactive Lyrica 50 mg capsule RxNorm: 392252 Take 1 Capsule(s) Oral QAM every morning 02/15/20 Inactive Lyrica 100 mg capsule RxNorm: 514110 Take 1 Capsule(s) Oral QHS every night at bedtime 02/15/20 Inactive Lyrica 100 mg capsule RxNorm: 345253 Take 1 Capsule(s) Oral QHS every night at bedtime 02/15/20 Inactive Lyrica 50 mg capsule RxNorm: 131151 Take 1 Capsule(s) Oral QAM every morning 02/15/20 Inactive metoprolol succinate ER 200 mg tablet,extended release 24 hr RxNorm: 321958 Take 1 Tablet(s) Oral QD 08/11 Activeloperamide 2 mg capsuleRxNorm: 446209Lcsl 1 Capsule(s) Oral QID as needed 06/12/2021ctivehydralazine 50 mg tabletRxNorm: 155887Qjgr 1 Tablet(s) Oral QID 08/11/2022ctivevenlafaxine ER 75 mg capsule,extended release 24 hrRxNorm: 367152Fgfz 3 Capsule(s) Oral QD/Inactivepolyethylene glycol 3350 17 gram/dose oral powderRxNorm: 452926Xnoo 17=1 capful Gram(s) Oral BID as needed mix with 4-8oz of bcjzix96/Inactiveicosapent ethyl 1 gram capsuleRxNorm: 1583955Yjoh 2 Capsule(s) (2 gm) Oral BID with meals /InactiveOkay to dispense one 2gm tab if you have that available.Levemir FlexTouch U-100 Insulin 100 unit/mL (3 mL) subcutaneous pen RxNorm: 781756Kqjiko 80 Unit(s) Subcutaneous BID07/14//Inactive Novolog Flexpen U-100 Insulin aspart 100 unit/mL (3 mL) subcutaneousRxNorm: 0290012Ikeong 30 Unit(s) Subcutaneous TID with meals/Inactive Medication [...] Date Referral: [facility] WPtel: [phone], [address] [id number] USReferralRecords [id number]/08/2023Referral: [facility] WPtel: [address] [id number]/12/2022Referral: General CardiologyReferralCompleted 1Referral: General PsychologistReferralClosedReferral: General PsychiatristReferralPatient/Family [...] Sister Jyotsna involved in his care cell# [phone] Guardian: Don (tapan met in person 09/01/21), now has Lexii (same group as don)AWV 02.08.2024. Lab Schedule: /September*September (CBC with diff, CMP, A1c) March: (CBC, CMP, A1c, Lipids, VitD).: CBC, CMP Na 139, K2.6L, creat 1.45H, [...] Martines note from 11.08.2023 at [facility] (follow up 6 months)Colon & Rectal Surgery visit scheduled for 03/08/24 with Matilde Pérez PA-C. 02/08/2024
--- OUTSIDE RECORDS SUMMARY | 2024-03-03 14:19 | XMS_ITS | CCD ---
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 Name Role Phone Arpit MENDOZA Harrison Primary Care Provider Leona vailable Arpit ARLENParker Harrison Chronic Care Management U navailable Summary Purpose DataExchange Insurance Providers Payer name Policy type / Coverage type Covered constitution party ID Effective Begin Date Effective End Date [place] Part B [id number] Unknown Unknown [place] B [id number] Unknown Unknown Family history Sister Brittany Suggs Diagnosis Age At Onset No Family Disease Entered N/A Runs in the family Diagnosis Age At Onset No Known Diseases N/A Sister Blanka Mcduffie Diagnosis Age At Onset No Family Disease Entered N/A Social History Social History Element Codes Description Effec tive Dates Tobacco history SNOMED CT: 051803578 Never smoker 01/16 Sexually Active? Unknown No [...] Single 10/07/2021 Living arrangements Unknown [facility] 09/03/[address]: 018407095 No Alcohol Consum ption 09/02/2020 Allergies, Adverse Reactions, Alerts Substance Reaction Codes Entered Date Inactivated Date Status * NO KNOWN FOOD ALLERGIES Nkacqif4507/13/2023No Inactive DateActiveLISINOPRILRxNorm: 2644064No Inactive DateActiveMetformin JHhShmabzc94/28/2020No Inactive DateActive* NO KNOWN ENVIRONMENTAL EAUTAJNVYDvxxuge26/27/2024No Inactive DateActive Problems Condition Codes Effective Dates [...] E55.9 ICD-9: 268.909ctiveCallus of heelICD-10: L84 ICD-9: 19943/esolvedGout due to renal impairmentICD-10: M10.30 ICD-9: 274.10054ResolvedHyperhidrosis of palmsICD-10: L74.512 ICD-9: 705.2105esolvedHyperlipidemia, unspecifiedICD-10: E78.5 ICD-9: 272.405/28/2024ResolvedOther fdc (current) drug therapyICD-10: Z79.899 ICD-9: V58.6905/esolvedPain of [...] tagICD-10: L91.8 ICD-9: 701.904esolvedCoronary artery disease involving [place] coronary artery of [place] heart, angina presence unspecifiedICD-10: I25.10 ICD-9: 414.0102/ctiveInappropriate sexual behaviorICD-10: Z72.89 ICD-9: 312.8910/ctivePre-op evaluationICD-10: Z01.818 ICD-9: V72.8403/ctiveSecondary hypertensionICD-10: I15.9 ICD-9: 405.9903/ctiveDepressionICD-10: F32.9 ICD-9: 62295/2ResolvedDVT (deep venous thrombosis)ICD-10: I82.409 ICD-9: 453.40092ResolvedEncounter for [...] to other viral communicable diseasesICD-10: Z20.828 ICD-9: V01.79023548DwdavsgzEvpwauysEgfpwlx71/28/2020ActiveDiabetes mellitus Type 8Knhgdvr77/28/2020ActiveAnemia in chronic kidney diseaseICD-10: D63.1 02/12/2020ResolvedHyperlipidemia, unspecifiedICD-10: E78.Resolved Medications Medication Codes Instructions Start Date Stop Date Status Fill Instructions Humulin R U-500 (Concentrated) Insulin 500 unit/mL subcutaneous soln RxNorm: 911252 Inject 100 Unit(s) Subcutaneous TID 02/17/20 24 08/14/ 025 Active Basaglar KwikPen U-100 Insulin 100 unit/mL (3 mL) subcutaneous RxNorm: 5902451 Inject 30 Unit(s) Subcutaneous BID 02/10/20 24 024 Active Please dispense one month supply. Humulin R U-500 (Concentrated) Insulin 500 unit/mL subcutaneous soln RxNorm: 341405 Inject 100 Unit(s) Subcutaneous TID 02/10/20 24 024 Inactive pregabalin 100 mg capsule RxNorm: 889523 Take 1 Capsule(s) Oral QAM every morning 02/07/20 24 024 Active isosorbide mononitrate ER 60 mg tablet,extended release 24 hr RxNorm: 792569 Take 1 Tablet(s) Oral QD 02/01/20 24 025 Active aripiprazole 15 mg tablet RxNorm: 536636 Take 1/2 Tablet(s) Oral QD 02/01/20 24 025 Active torsemide 20 mg tablet RxNorm: 647048 1 TAB ORALLY DAILY (DX: EDEMA) 01/27/20 24 No Stop Date Active potassium chloride ER 20 mEq tablet,extended release(part/cryst) RxNorm: 7471444 2 TABS (40MEQ) ORALLY TWICE DAILY (DX: HYPOKALEMIA) 01/27/20 24 No Stop Date Active cephalexin 500 mg capsule RxNorm: 384680 Take 1 Capsule(s) Oral QID 12/17/19 24 024 Inactive cephalexin 500 mg capsule RxNorm: 701278 Take 1 Capsule(s) Oral QID 12/17/19 24 024 Inactive acetaminophen 500 mg tablet RxNorm: 514062 (MAX APAP:4GM/24HR) Take 1 Tablet(s) Oral TID as needed for pain 12/10/19 24 024 Active torsemide 20 mg tablet RxNorm: 484391 Take 1 Tablet(s) Oral QD 10/26/19 24 024 Inactive potassium chloride ER 20 mEq tablet,extended release RxNorm: 182782 Take 2 Tablet(s) Oral BID 10/26/19 24 025 Active torsemide 20 mg tablet RxNorm: 991749 Take 1 Tablet(s) Oral QD 10/26/19 24 024 Inactive potassium chloride ER 20 mEq tablet,extended release RxNorm: 035844 Take 2 Tablet(s) Oral BID 10/26/19 24 Inactive Artificial Tears (PF) 0.1 %-0.3 % drops in a dropperette RxNorm: 365764 Apply 1-2 Drop(s) Both eyes BID as needed 09/28/19 24 025 Active erythromycin 5 mg/gram (0.5 %) eye ointment RxNorm: 655643 Apply 1 Application Both eyes QHS every night at bedtime Instill ~1 cm ribbon into affected eye 09/28/19 24 Inactive Artificial Tears (PF) 0.1 %-0.3 % drops in a dropperette RxNorm: 394172 Apply 1-2 Drop(s) Both eyes BID as needed 09/28/19 24 Inactive erythromycin 5 mg/gram (0.5 %) eye ointment RxNorm: 238697 Apply 1 Application Both eyes QHS every night at bedtime Instill ~1 cm ribbon into affected eye 09/28/19 24 024 Inactive acetaminophen 500 mg tablet RxNorm: 117108 (MAX APAP:4GM/24HR) Take 1 Tablet(s) Oral TID as needed for pain 09/24/19 24 024 Inactive carvedilol 25 mg tablet RxNorm: 451594 Take 1 Tablet(s) Oral QD 09/08/19 24 No Stop Date Active pregabalin 100 mg capsule RxNorm: 816339 Take 1 Capsule(s) Oral QAM every morning 09/07/19 24 024 Inactive rosuvastatin 40 mg tablet RxNorm: 023354 Take 1 Tablet(s) Oral QPM every evening 07/13/19 24 No Stop Date Active ezetimibe 10 mg tablet RxNorm: 556257 Take 1 Tablet(s) Oral QD 07/13/19 24 No Stop Date Active bisacodyl 10 mg rectal suppository RxNorm: 887517 Insert 1 Suppository Rectal QD as needed 07/13/19 24 No Stop Date Active polyethylene glycol 3350 17 gram/dose oral powder RxNorm: 142687 Take 17 Gram(s) Oral BID as needed mix in 4-8ox water 07/13/19 24 No Stop Date Active ketoconazole 2 % shampoo RxNorm: 040833 Apply 1 Application Topical UD as directed 07/13/19 24 No Stop Date Active Ozempic 1 mg/dose (4 mg/3 mL) subcutaneous pen injector RxNorm: 0826221 Inject 1 Milligram(s) Subcutaneous QW once a week 07/13/19 24 No Stop Date Active Guaifenesin AC 10 mg-100 mg/5 mL oral liquid RxNorm: 469931 Take 10 Milliliter(s) Oral Q4H every four hours as needed 07/13/19 24 No Stop Date Active ammonium lactate 12 % topical cream RxNorm: 598073 Apply 1 Application Topical BID 07/13/19 24 No Stop Date Active hydrocortisone 2.5 % topical cream RxNorm: 199176 Apply 1 Application Topical BID as needed 07/13/19 24 No Stop Date Active rosuvastatin 20 mg sprinkle capsule RxNorm: 2550840 Take 1 Capsule(s) Oral QD 07/13/19 24 No Stop Date Active Vascepa 1 gram capsule RxNorm: 0467237 Take 2 Capsule(s) Oral BID 07/13/19 24 No Stop Date Active venlafaxine ER 75 mg capsule,extended release 24 hr RxNorm: 928918 Take 3 Capsule(s) Oral QD 07/13/19 24 No Stop Date Active aripiprazole 15 mg tablet RxNorm: 856227 Take 1/2 Tablet(s) Oral QD 07/13/19 24 024 Inactive isosorbide mononitrate ER 60 mg tablet,extended release 24 hr RxNorm: 687840 Take 1 Tablet(s) Oral QD 07/13/19 24 024 Inactive Basaglar KwikPen U-100 Insulin 100 unit/mL (3 mL) subcutaneous RxNorm: 7559572 Inject 30U SubQ twice daily 07/07/19 24 024 Inactive Please dispense one month supply. Basaglar KwikPen U-100 Insulin 100 unit/mL (3 mL) subcutaneous RxNorm: 9413559 Inject 30U SubQ twice daily 07/07/19 24 024 Inactive Please dispense one month supply. pregabalin 150 mg capsule RxNorm: 885598 Take 1 Capsule(s) Oral QHS every night at bedtime 07/05/19 24 024 Inactive pregabalin 150 mg capsule RxNorm: 204728 Take 1 Capsule(s) Oral QHS every night at bedtime 07/05/19 24 024 Inactive polyethylene glycol 3350 17 gram/dose oral powder RxNorm: 631679 Take 1 Packet Oral QD as needed (1 packet = 17g) mix with 4-8oz of liquid 06/15/19 24 024 Inactive bisacodyl 10 mg rectal suppository RxNorm: 425985 Insert one suppository per rectum once daily as needed for constipation 06/15/19 24 024 Inactive bisacodyl 10 mg rectal suppository RxNorm: 794640 Insert one suppository per rectum once daily as needed for constipation 06/15/19 024 Inactive pregabalin 100 mg capsule RxNorm: 926676 Take 1 Capsule(s) Oral QAM every morning 04/27/20 024 Inactive Levemir FlexPen 100 unit/mL (3 mL) solution subcutaneous insulin pen RxNorm: 682632 Inject 30 Unit(s) Subcutaneous BID 04/27/20 23 024 Inactive rosuvastatin 40 mg tablet RxNorm: 689855 Take 1 Tablet(s) Oral QPM every evening 04/16/20 024 Inactive D/C rosuvastatin 20mg venlafaxine ER 75 mg capsule,extended release 24 hr RxNorm: 258060 Take 3 Capsule(s) Oral QD 04/14/20 23 023 Inactive pregabalin 100 mg capsule RxNorm: 365122 Take 1 Capsule(s) Oral QAM every morning 04/14/20 23 023 Inactive Accu-Chek Guide Glucose Meter RxNorm: Use 1 Miscellaneous UD as directed Use glucose meter to monitor blood glucose 4 times daily and as needed. Dx:E11.42 03/26/20 23 023 Inactive ok to substitute with any covered alternative meter Accu-Chek Guide test strips RxNorm: Use 1 Test Strip QID 03/26/20 23 023 Inactive ok to substitute with any covered alternative test strip clotrimazole 1 % topical cream RxNorm: 524085 Take apply topically to abdominal folds twice daily for 14 days 03/12/20 024 Inactive Ozempic 1 mg/dose (4 mg/3 mL) subcutaneous pen injector RxNorm: 0747652 Inject 1 Milligram(s) Subcutaneous QW once a week 03/11/20 023 Inactive rosuvastatin 20 mg tablet RxNorm: 247707 Take 1 Tablet(s) Oral QD 02/26/20 23 023 Inactive d/c pravastatin 80mg Ozempic 1 mg/dose (4 mg/3 mL) subcutaneous pen injector RxNorm: 2134316 Inject 1 Milligram(s) Subcutaneous QW once a week 02/20/20 23 023 Inactive pregabalin 150 mg capsule RxNorm: 796773 Take 1 Capsule(s) Oral HS at bed time 02/19/20 23 023 Inactive pregabalin 100 mg capsule RxNorm: 897050 Take 1 Capsule(s) Oral QAM every morning 02/18/20 23 023 Inactive venlafaxine ER 75 mg capsule,extended release 24 hr RxNorm: 081684 Take 3 Capsule(s) Oral QD 02/04/20 023 Inactive FreeStyle Chema 2 Sensor kit RxNorm: use as directed 02/04/20 23 023 Inactive FreeStyle Chema 2 Sensor kit RxNorm: use as directed 02/04/20 23 024 Inactive fluconazole 150 mg tablet RxNorm: 590072 Take 1 Tablet(s) Oral on day 3 and on day 6 02/03/20 23 024 Inactive chlorthalidone 25 mg tablet RxNorm: 483514 Take 1 Tablet(s) Oral QAM every morning 02/03/20 23 No Stop Date Active venlafaxine ER 150 mg capsule,extended release 24 hr RxNorm: 586466 Take 1 Capsule(s) Oral QD 02/03/20 23 023 Inactive acetaminophen 500 mg tablet RxNorm: 206098 1 TABLET ORALLY 3 TIMES DAILY (MAX APAP:4GM/24HR) 12/15/19 023 Inactive clotrimazole 1 % topical cream RxNorm: 518065 apply 1g topically to top of feet and in between toes BID 12/09/19 23 023 Inactive potassium chloride ER 20 mEq tablet,extended release RxNorm: 748357 Take 1 Tablet(s) Oral BID 12/09/19 024 Inactive d/c 20mEq once daily (sent from hospital) nystatin 100,000 unit/gram topical powder RxNorm: 646630 APPLY TO AFFECTED AREAS TOPICALLY 2 TIMES DAILY 11/21/19 023 Inactive Nystop 100,000 unit/gram topical powder RxNorm: 036606 Apply to abd folds, under breasts and L side of groin Topical BID x 14 days, then BID PRN 11/20/19 023 Inactive dx: yeast dermatitis [place] Ultra Strength 4 %-30 %-10 % topical cream RxNorm: 454033 Apply 1 Gram(s) Topical QID PRN to feet and legs for neuropathic pain 11/11/19 024 Inactive clotrimazole 1 % topical cream RxNorm: 797569 Apply 1/2 Gram(s) Topical BID Apply to affected areas of groin, periarea, and abdominal topically 2 times daily 11/10/19 023 Inactive hydrocortisone 2.5 % topical cream RxNorm: 180693 Apply 1/2 Gram(s) Topical BID as needed 11/10/19 024 Inactive Levemir FlexPen 100 unit/mL (3 mL) solution subcutaneous insulin pen RxNorm: 754333 Inject 30 Unit(s) Subcutaneous BID 10/07/19 23 023 Inactive Humulin R U-500 (Concentrated) Insulin 500 unit/mL subcutaneous soln RxNorm: 407362 Inject 100 Unit(s) Subcutaneous TID 10/07/19 23 024 Inactive Ozempic 0.25 mg or 0.5 mg (2 mg/3 mL) subcutaneous pen injector RxNorm: 6045398 Inject 1/2 Milligram(s) Subcutaneous QW once a week 10/07/19 024 Inactive aripiprazole 15 mg tablet RxNorm: 701546 05/18 TAB (7.5MG) ORALLY DAILY (DX:MAJOR DEPRESSIVE DISORDER) 09/23/19 023 Inactive Accu-Chek Guide test strips RxNorm: Use 1 Test Strip QID 09/15/19 23 023 Inactive ok to substitute with any covered alternative test strip Lancets,Thin 28 gauge RxNorm: Use 1 as directed QID 09/15/19 23 023 Inactive torsemide 20 mg tablet RxNorm: 153545 Take 1 Tablet(s) Oral BID 09/09/19 23 024 Inactive d/c once daily dosing carvedilol 25 mg tablet RxNorm: 466850 Take 1 Tablet(s) Oral QD 08/25/19 23 024 Inactive pregabalin 150 mg capsule RxNorm: 418867 1 Capsule(s) Oral HS at bed time 08/18/19 23 023 Inactive pregabalin 100 mg capsule RxNorm: 375633 1 Capsule(s) Oral QAM every morning 08/18/19 23 023 Inactive carvedilol 25 mg tablet RxNorm: 285874 1 Tablet(s) Oral QD 07/28/19 23 023 Inactive lisinopril 20 mg tablet RxNorm: 614676 Give 1 Tablet(s) Oral QD 07/28/19 23 023 Inactive Lyrica 150 mg capsule RxNorm: 286947 Take 1 Capsule(s) Oral QHS every night at bedtime 07/19/19 023 Inactive d/c 100mg dose Diflucan 150 mg tablet RxNorm: 262941 Take 1 Tablet(s) Oral QD repeat on day 3 and 6 07/19/19 23 023 Inactive pregabalin 100 mg capsule RxNorm: 448213 Take 1 Capsule(s) Oral QAM every morning 07/19/19 23 023 Inactive gatifloxacin 0.5 % eye drops RxNorm: 301118 Instill 1 Drop(s) as directed TID Instill 1 drop in to affected eye(s) starting 1 day prior to surgery and continue until gone (do not exceed 4 weeks). 07/13/19 23 023 Inactive carvedilol 25 mg tablet RxNorm: 977090 2 Tablet(s) Oral BID 07/13/19 23 023 Inactive Humulin R Regular U-100 Insulin 100 unit/mL injection solution RxNorm: 278878 85 Unit(s) Injection TID 07/13/19 23 023 Inactive ketorolac 0.5 % eye drops RxNorm: 489838 Instill 1 Drop(s) as directed QID Instill 1 drop into affected eye(s) 4 times daily starting 1 day prior to surgery and continue until gone (do not exceed 4 weeks). 07/13/19 23 023 Inactive Diflucan 150 mg tablet RxNorm: 525545 Take 1 Tablet(s) Oral QD repeat on day 3 and 6 06/30/19 023 Inactive Accu-Chek Guide test strips RxNorm: Use 1 Test Strip QID Use 1 test strip to monitor blood glucose 4 times daily and as needed. Dx:E11.42. 06/23/19 23 023 Inactive ok to substitute with any covered alternative test strip dextromethorphan-gu aifenesin 10 mg-100 mg/5 mL oral liquid RxNorm: 224539 Take 10 Milliliter(s) Oral every 4 hours as needed for cough 06/19/19 23 023 Inactive dextromethorphan-gu aifenesin 10 mg-100 mg/5 mL oral liquid RxNorm: 988701 Take 10 Milliliter(s) Oral every 4 hours as needed for cough 06/19/19 23 023 Inactive Lyrica 150 mg capsule RxNorm: 369764 Take 1 Capsule(s) Oral QHS every night at bedtime 06/18/19 23 023 Inactive d/c 100mg dose aripiprazole 15 mg tablet RxNorm: 574433 1/2 TAB (7.5MG) ORALLY DAILY (DX:MAJOR DEPRESSIVE DISORDER) 06/05/19 23 023 Inactive pregabalin 100 mg capsule RxNorm: 428845 1 Capsule(s) Oral QAM every morning 06/02/19 23 023 Inactive Banophen 50 mg capsule RxNorm: 3630684 Take 1 Capsule(s) Oral Q6H every 6 hours as needed 05/19/19 No Stop Date Active Novolog Flexpen U-100 Insulin aspart 100 unit/mL (3 mL) subcutaneous RxNorm: 3951071 Inject 10 Unit(s) Subcutaneous QHS every night at bedtime with nighttime snack 04/08/20 Inactive Novolog Flexpen U-100 Insulin aspart 100 unit/mL (3 mL) subcutaneous RxNorm: 8513324 Inject 42 Unit(s) Subcutaneous TID in addition to sliding scale 04/08/20 Inactive d/c 36u albuterol sulfate HFA 90 mcg/actuation aerosol inhaler RxNorm: 5613492 Take 2 Puff(s) Inhalation Q4H every four hours as needed as needed for SOB, cough, or wheezing 04/07/20 030 Active Banophen 50 mg capsule RxNorm: 2140900 Take 1 Capsule(s) Oral Q6H every 6 hours as needed 04/06/20 023 Inactive diphenhydramine 50 mg tablet RxNorm: 5158742 Take 1 Tablet(s) Oral Q6H every 6 hours as needed 04/06/20 022 Inactive diphenhydramine 50 mg tablet RxNorm: 2614648 1 Tablet(s) Oral Q6H every 6 hours as needed 04/06/20 Inactive Abilify 15 mg tablet RxNorm: 397668 1/2 Tablet(s) Oral QD 03/10/20 023 Inactive Shingrix (PF) 50 mcg/0.5 mL intramuscular suspension, kit RxNorm: 8970786 Administer 1/2 Milliliter(s) Intramuscular QD one time shingrix step 2 ( step 1 given 11/04/21) WITH needle - Nursing please administer upon arrival and once administered post a bridge message with date of administration, bull ladle tender, expiration date, and lot# so we can update [facility] 02/18/20 22 022 Inactive dispense with needle Shingrix (PF) 50 mcg/0.5 mL intramuscular suspension, kit RxNorm: 8808262 Administer 1/2 Milliliter(s) Intramuscular QD one time shingrix step 2 ( step 1 given 11/04/21) WITH needle - Nursing please administer upon arrival and once administered post a bridge message with date of administration, bull ladle tender, expiration date, and lot# so we can update [facility] 02/18/20 22 022 Inactive dispense with needle polyethylene glycol 3350 17 gram/dose oral powder RxNorm: 786116 Take 17=1 capful Gram(s) Oral QD mix with 4-8oz of liquid 01/08/20 22 023 Inactive take this in addition to BID prn order Lyrica 100 mg capsule RxNorm: 317061 Take 1 Capsule(s) Oral QAM every morning 01/08/20 22 022 Inactive d/c 50mg dose acetaminophen 500 mg tablet RxNorm: 389910 Take 1 Tablet(s) Oral TID 01/08/20 22 022 Inactive d/c PRN order Lyrica 150 mg capsule RxNorm: 012350 Take 1 Capsule(s) Oral QHS every night at bedtime 01/08/20 22 023 Inactive d/c 100mg dose Abilify 5 mg tablet RxNorm: 974122 Take 1 Tablet(s) Oral QD take 1 tab po QD #30 refill 5 dx: MDD 12/12/19 22 022 Inactive Abilify 5 mg tablet RxNorm: 079762 Take 1 Tablet(s) Oral QD take 1 tab po QD #30 refill 5 dx: MDD 12/12/19 22 022 Inactive Novolog Flexpen U-100 Insulin aspart 100 unit/mL (3 mL) subcutaneous RxNorm: 4379075 Inject 42 Unit(s) Subcutaneous TID in addition to sliding scale 12/10/19 22 022 Inactive d/c 36u chlorthalidone 25 mg tablet RxNorm: 080088 Take 1 Tablet(s) Oral QAM every morning 12/10/19 22 023 Inactive pregabalin 50 mg capsule RxNorm: 670931 Take 1 Capsule(s) Oral QAM every morning 11/12/19 22 022 Inactive tetanus-diphtheria toxoids-Td 2 Lf unit-2 Lf unit/0.5 mL IM suspension RxNorm: 139 Take 0.5 Miscellaneous Intramuscular 11/12/19 22 022 Inactive need tdap - nursing to administer upon arrival pregabalin 50 mg capsule RxNorm: 969250 Take 1 Capsule(s) Oral QAM every morning 10/16/19 22 022 Inactive pregabalin 50 mg capsule RxNorm: 683187 Take 1 Capsule(s) Oral QAM every morning 10/16/19 22 022 Inactive pregabalin 50 mg capsule RxNorm: 743197 1 Capsule(s) Oral QAM every morning 10/15/19 22 022 Inactive Shingrix (PF) 50 mcg/0.5 mL intramuscular suspension, kit RxNorm: 9339228 Administer 1/2 Milliliter(s) Intramuscular one time Nursing please administer upon arrival and once administered post a bridge message with date of administration, bull ladle tender, expiration date, and lot# so we can update [facility]. 10/09/19 22 022 Inactive shingrix step 1 Shingrix (PF) 50 mcg/0.5 mL intramuscular suspension, kit RxNorm: 0383041 Administer 1/2 Milliliter(s) Intramuscular one time Nursing please administer upon arrival and once administered post a bridge message with date of administration, bull ladle tender, expiration date, and lot# so we can update [facility]. 10/09/19 22 022 Inactive shingrix step 1 cholecalciferol (vitamin D3) 1,250 mcg (50,000 unit) capsule RxNorm: 151104 Take 1 Capsule(s) Oral QW once a [...] aspart 100 unit/mL (3 mL) subcutaneous RxNorm: 5480165 Inject 10 Unit(s) Subcutaneous QHS every night at bedtime with nighttime snack 10/08/19 22 Inactive Shingrix (PF) 50 mcg/0.5 mL intramuscular suspension, kit RxNorm: 0277820 ADMINISTER 2-DOSE SERIES PER CDC GUIDELINES 10/08/19 22 Active Shingrix (PF) 50 mcg/0.5 mL intramuscular suspension, kit RxNorm: 5966909 ADMINISTER 2-DOSE SERIES PER CDC GUIDELINES 10/08/19 22 Inactive Novolog Flexpen U-100 Insulin aspart 100 unit/mL (3 mL) subcutaneous RxNorm: 4137926 Inject 36 Unit(s) Subcutaneous TID in addition to sliding scale 10/08/19 22 Inactive Novofine Autocover 30 gauge x 1/3 needle RxNorm: Use 1 Miscellaneous UD as directed Use 1 needle as directed to administer insulin 5 times a day Dx:E11.42. 10/03/19 22 Inactive ok to substitute with any covered alternative pen needle benzoyl peroxide 10 % topical cleanser RxNorm: 655324 Apply 1 Application Topical QD apply to face, wash rinse and dry once daily (may change to QOD if drying) 08/19/19 22 022 Inactive (%covered by insurance) #60ml refill 11 dx: acne benzoyl peroxide 10 % topical cleanser RxNorm: 252945 Apply 1 Application Topical QD apply to face, wash rinse and dry once daily (may change to QOD if drying) 08/19/19 22 022 Inactive (%covered by insurance) #60ml refill 11 dx: acne benzoyl peroxide 10 % topical cleanser RxNorm: 314397 Apply 1 Application Topical QD apply to face, wash rinse and dry once daily (may change to QOD if drying) 08/19/19 22 022 Inactive (%covered by insurance) #60ml refill 11 dx: acne Lyrica 50 mg capsule RxNorm: 683165 Take 1 Capsule(s) Oral QAM every morning Take 1 capsule by mouth once daily 08/19/19 22 022 Inactive benzoyl peroxide 10 % topical cleanser RxNorm: 380920 Apply 1 Application Topical QD apply to face, wash rinse and dry once daily (may change to QOD if drying) 08/19/19 22 Inactive (%covered by insurance) #60ml refill 11 dx: acne Lyrica 100 mg capsule RxNorm: 199681 Take 1 Capsule(s) Oral QHS every night at bedtime Take 1 capsule by mouth once daily at bedtime 08/19/19 22 022 Inactive Lyrica 100 mg capsule RxNorm: 297148 Take 1 Capsule(s) Oral QHS every night at bedtime Take 1 capsule by mouth once daily at bedtime 08/16/19 22 Inactive Lyrica 50 mg capsule RxNorm: 829324 Take 1 Capsule(s) Oral QAM every morning Take 1 capsule by mouth once daily 08/16/19 22 Inactive Levemir FlexTouch U-100 Insulin 100 unit/mL (3 mL) subcutaneous pen RxNorm: 496235 Inject 86 Unit(s) Subcutaneous BID 08/05/19 22 022 Inactive d/c 83units BID Lyrica 100 mg capsule RxNorm: 581568 Take 1 Capsule(s) Oral QHS every night at bedtime Take 1 capsule by mouth once daily at bedtime 07/14/19 22 022 Inactive Lyrica 50 mg capsule RxNorm: 539011 Take 1 Capsule(s) Oral QAM every morning Take 1 capsule by mouth once daily 07/14/19 22 022 Inactive Levemir FlexTouch U-100 Insulin 100 unit/mL (3 mL) subcutaneous pen RxNorm: 145588 Inject 83 Unit(s) Subcutaneous BID 07/08/19 22 [...] test strip hydralazine 50 mg tablet RxNorm: 120121 Take 1 Tablet(s) Oral QID 05/05/20 21 022 Inactive venlafaxine ER 225 mg tablet,extended release 24 hr RxNorm: 928708 Take 1 Tablet(s) Oral QD 05/05/20 21 021 Inactive venlafaxine ER 225 mg tablet,extended release 24 hr RxNorm: 284029 Take 1 Tablet(s) Oral QD 05/05/20 21 022 Inactive isosorbide mononitrate ER 30 mg tablet,extended release 24 hr RxNorm: 596452 Take 1 Tablet(s) Oral QD 05/05/20 21 024 Inactive hydralazine 50 mg tablet RxNorm: 943532 Take 1 Tablet(s) Oral QID 05/05/20 21 021 Inactive aspirin 81 mg tablet,delayed release RxNorm: 810955 Take 1 Tablet(s) Oral QD 03/31/20 022 Inactive Vitamin D2 1,250 mcg (50,000 unit) capsule RxNorm: 5145578 Take 1 Capsule(s) Oral QW once a week x 12 weeks 03/31/20 022 Inactive Vitamin D2 1,250 mcg (50,000 unit) capsule RxNorm: 7843878 Take 1 Capsule(s) Oral QW once a week 03/31/20 021 Inactive Zetia 10 mg tablet RxNorm: 303863 Take 1 Tablet(s) Oral QD 03/31/20 024 Inactive Zetia 10 mg tablet RxNorm: 907980 Take 1 Tablet(s) Oral QD 03/31/20 Inactive hydralazine 25 mg tablet RxNorm: 424835 Take 1 Tablet(s) Oral QID 03/31/20 021 Inactive hydralazine 25 mg tablet RxNorm: 556769 Take 1 Tablet(s) Oral QID 03/31/20 021 Inactive hydralazine 10 mg tablet RxNorm: 250484 Take 1 Tablet(s) Oral QID 03/03/20 021 Inactive cephalexin 500 mg tablet RxNorm: 147006 Take 1 Tablet(s) Oral QID 02/27/20 021 Inactive cephalexin 500 mg tablet RxNorm: 450388 Take 1 Tablet(s) Oral QID 02/27/20 021 Inactive lisinopril 40 mg tablet RxNorm: 465471 Take 1 Tablet(s) Oral QD 02/11/20 023 Inactive Eliquis 5 mg tablet RxNorm: 6447646 Take 1 Tablet(s) Oral BID 01/05/20 022 Inactive Eliquis 5 mg tablet RxNorm: 6782720 Take 2 Tablet(s) Oral QD 01/01/20 021 Inactive Lyrica 50 mg capsule RxNorm: 391198 Take 1 Capsule(s) Oral QAM every morning 12/24/19 21 021 Inactive Lyrica 100 mg capsule RxNorm: 346441 Take 1 Capsule(s) Oral QHS every night at bedtime 12/24/19 21 021 Inactive clotrimazole 1 % topical cream RxNorm: 057671 Apply to right foot and toes Topical BID 12/04/19 21 023 Inactive metoprolol succinate ER 200 mg tablet,extended release 24 hr RxNorm: 892849 Take 1 Tablet(s) Oral QD 12/04/19 21 023 Inactive ciprofloxacin 500 mg tablet RxNorm: 243620 Take 1 Tablet(s) Oral QD 11/30/19 21 021 Inactive DX ofloxacin otic drops Accu-Chek Guide test strips RxNorm: USE 1 TO CHECK GLUCOSE 4 TIMES DAILY AND NEEDED 11/15/19 21 023 Inactive Blood Glucose Test strips RxNorm: Use 1 Test Strip QID at PRN 11/05/19 21 023 Inactive E11.42 lisinopril 30 mg tablet RxNorm: 395044 Take 1 Tablet(s) Oral QD 10/30/19 021 Inactive lisinopril 20 mg tablet RxNorm: 347168 Take 1 Tablet(s) Oral QD 10/23/19 21 021 Inactive lisinopril 20 mg tablet RxNorm: 423128 Take 1 Tablet(s) Oral QD 10/23/19 21 021 Inactive lisinopril 10 mg tablet RxNorm: 275908 Take 1 Tablet(s) Oral QD 10/02/19 21 021 Inactive icosapent ethyl 1 gram capsule RxNorm: 1540055 Take 2 Capsule(s) (2 gm) Oral BID with meals 09/12/19 21 024 Inactive Okay to dispense one 2gm tab if you have that available. icosapent ethyl 1 gram capsule RxNorm: 0879689 Take 2 Capsule(s) Oral BID 09/12/19 21 021 Inactive Okay to dispense one 2gm tab if you have that available. amlodipine 10 mg tablet RxNorm: 976193 Take 1 Tablet(s) Oral QD 09/04/19 21 022 Inactive aspirin 81 mg tablet,delayed release RxNorm: 678824 Take 1 Tablet(s) Oral QD 09/04/19 21 Inactive Levemir FlexTouch U-100 Insulin 100 unit/mL (3 mL) subcutaneous pen RxNorm: 042137 Inject 150 Unit(s) Subcutaneous BID 09/04/19 21 022 Inactive venlafaxine ER 150 mg tablet,extended release 24 hr RxNorm: 881940 Take 1 Tablet(s) Oral QD 09/04/19 Inactive clotrimazole-betame thasone 1 %-0.05 % topical cream RxNorm: 942342 Apply to rash on red area on left abdomen/chest Topical BID 08/10/19 21 Inactive amlodipine 5 mg tablet RxNorm: 449670 Take 1 Tablet(s) Oral QD 07/31/19 Inactive cephalexin 500 mg tablet RxNorm: 221412 Take 1 Tablet(s) Oral BID BID - Twice Daily 07/31/19 021 Inactive Start 08/01/20 pantoprazole 40 mg tablet,delayed release RxNorm: 822744 Take 1 Tablet(s) Oral QAM every morning 07/08/19 022 Inactive senna 8.6 mg tablet RxNorm: 462072 Take 1 Tablet(s) Oral QD 07/08/19 022 Inactive carbamazepine 200 mg tablet RxNorm: 777882 Take 1 Tablet(s) Oral BID 07/08/19 022 Inactive clopidogrel 75 mg tablet RxNorm: 188906 Take 1 Tablet(s) Oral QD 07/08/19 021 Inactive Blood Glucose Test strips RxNorm: Use 1 Test Strip QID at PRN 07/08/19 21 021 Inactive E11.42 Novolog Flexpen U-100 Insulin aspart 100 unit/mL (3 mL) subcutaneous RxNorm: 6502134 Administer per sliding scale Milliliter(s) Subcutaneous TID 151-200: 10 u; 201-250: 20 u; 251-300: 30 u; 301-350: 40 u; 351-400: 50 u. 07/08/19 21 022 Inactive lisinopril 5 mg tablet RxNorm: 832030 Take 1 Tablet(s) Oral QD 07/08/19 021 Inactive Novolog Flexpen U-100 Insulin aspart 100 unit/mL (3 mL) subcutaneous RxNorm: 5126546 Inject 85 Unit(s) Subcutaneous TID 07/08/19 022 Inactive pravastatin 80 mg tablet RxNorm: 717718 Take 1 Tablet(s) Oral QHS every night at bedtime 07/08/19 023 Inactive clotrimazole 1 % topical cream RxNorm: 109034 Apply to bilateral groin areas Topical BID 07/08/19 022 Inactive metoprolol succinate ER 200 mg tablet,extended release 24 hr RxNorm: 403141 Take 1 Tablet(s) Oral QD 07/08/19 021 Inactive Vitamin D3 25 mcg (1,000 unit) tablet RxNorm: 574287 Take 1 Tablet(s) Oral QD 07/08/19 021 Inactive isosorbide dinitrate 30 mg tablet RxNorm: 514592 Take 1 Tablet(s) Oral QD 07/08/19 21 021 Inactive Levemir FlexTouch U-100 Insulin 100 unit/mL (3 mL) subcutaneous pen RxNorm: 682062 Inject 140 Unit(s) Subcutaneous BID 07/08/19 021 Inactive torsemide 20 mg tablet RxNorm: 145376 Take 1 Tablet(s) Oral QD 07/08/19 023 Inactive venlafaxine 75 mg tablet RxNorm: 761703 Take 1 Tablet(s) Oral QD 07/08/19 021 Inactive acetaminophen 500 mg tablet RxNorm: 255507 Take 1 Tablet(s) Oral TID as needed for headache 06/18/19 021 Inactive acetaminophen 500 mg tablet RxNorm: 513484 Take 1 Tablet(s) Oral TID as needed for headache 06/18/19 021 Inactive Lyrica 100 mg capsule RxNorm: 248361 Take 1 Capsule(s) Oral QHS every night at bedtime 06/11/19 021 Inactive Lyrica 50 mg capsule RxNorm: 736326 Take 1 Capsule(s) Oral QAM every morning 06/10/19 21 021 Inactive hydrocortisone 2.5 % topical cream RxNorm: 550114 Apply to bilateral groin creases Topical BID 05/15/20 20 021 Inactive clotrimazole 1 % topical cream RxNorm: 769225 Apply to bilateral groin areas Topical BID 05/15/20 20 021 Inactive Lyrica 50 mg capsule RxNorm: 325178 Take 1 Capsule(s) Oral QAM every morning 05/14/20 20 020 Inactive Lyrica 100 mg capsule RxNorm: 777513 Take 1 Capsule(s) Oral QHS every night [...] Inactive Nystop 100,000 unit/gram topical powder RxNorm: 368015 Apply to abd folds, under breasts and L side of groin Topical BID x 14 days, then BID PRN 04/08/20 20 020 Inactive dx: yeast dermatitis Lyrica 100 mg capsule RxNorm: 047645 Take 1 Capsule(s) Oral QHS every night at bedtime 03/13/20 20 020 Inactive Lyrica 50 mg capsule RxNorm: 935808 Take 1 Capsule(s) Oral QAM every morning 03/13/20 20 10/28/2 020 Inactive ketoconazole 2 % shampoo RxNorm: 985379 Apply Topical two times a week with showers 03/11/20 20 Inactive cholecalciferol (vitamin D3) 50 mcg (2,000 unit) tablet RxNorm: 491271 Take 1 Tablet(s) Oral QD 03/11/20 20 021 Inactive Zetia 10 mg tablet RxNorm: 626861 Take 1 Tablet(s) Oral QD 03/07/20 20 021 Inactive Zetia 10 mg tablet RxNorm: 780428 Take 1 Tablet(s) Oral QD 03/07/20 20 Inactive Lyrica 50 mg capsule RxNorm: 415104 Take 1 Capsule(s) Oral QAM every morning 02/15/20 20 Inactive Lyrica 100 mg capsule RxNorm: 290292 Take 1 Capsule(s) Oral QHS every night at bedtime 02/15/20 20 Inactive Lyrica 100 mg capsule RxNorm: 405984 Take 1 Capsule(s) Oral QHS every night at bedtime 02/15/20 20 Inactive Lyrica 50 mg capsule RxNorm: 920473 Take 1 Capsule(s) Oral QAM every morning 02/15/20 20 Inactive metoprolol succinate ER 200 mg tablet,extended release 24 hr RxNorm: 644979 Take 1 Tablet(s) Oral QD 08/11 Activeloperamide 2 mg capsuleRxNorm: 827256Tlso 1 Capsule(s) Oral QID as needed 06/12/2021ctivehydralazine 50 mg tabletRxNorm: 880430Yuhp 1 Tablet(s) Oral QID 08/11/2022ctivevenlafaxine ER 75 mg capsule,extended release 24 hrRxNorm: 546638Jzbt 3 Capsule(s) Oral QD/Inactivepolyethylene glycol 3350 17 gram/dose oral powderRxNorm: 113656Cwfz 17=1 capful Gram(s) Oral BID as needed mix with 4-8oz of qdrunm81Inactiveicosapent ethyl 1 gram capsuleRxNorm: 3436492Nspf 2 Capsule(s) (2 gm) Oral BID with meals /InactiveOkay to dispense one 2gm tab if you have that available.Levemir FlexTouch U-100 Insulin 100 unit/mL (3 mL) subcutaneous pen RxNorm: 123719Pvijac 80 Unit(s) Subcutaneous BID07/14//Inactive Novolog Flexpen U-100 Insulin aspart 100 unit/mL (3 mL) subcutaneousRxNorm: 2675809Fgrnrj 30 Unit(s) Subcutaneous TID with meals/Inactive Medication [...] Status Date Patient Education: Patient Medication Summary Katyfdrpq17/16/2024ppointment: Harrison Munson WPtel: [address] [facility] 300 [id number] [facility]02/08/2024ppointment: Harrison Munson WPtel: [address] [place], [place] [phone] [facility]/U001/11/2024ppointment: Sandra Clark WPtel: [address] [place], [place] [phone] [facility]ly [facility] Psych Follow Up12/09/2022ppointment: Tapan Shirley WPtel: [address] [place] [address] 300 [id number] [facility]10/26/2022Referral: [facility] WPtel: [address], [address] [id number] USReferralRecords Rvauulru09/08/2023ppointment: Tapan Shirley WPtel: [address] [place] [address] 300 [id number] [place]/U008/11/2022ppointment: Tapan Shirley WPtel: [address] [place] [address] 300 [id number] [place]/U007/14/2022ppointment: Tapan Shirley WPtel: [address] [place]/U002/10/2022eferral: [facility] WPtel: [address] [facility] [address] [id number] YKLzsltpchNseeioaer08/12/2022Referral: General CardiologyReferralCompleted 1Referral: General PsychologistReferralClosedReferral: General PsychiatristReferralPatient/Family Scheduling AppointmentReferral: General Physical MedicineReferralFacility Scheduling Appointment Instructions Comment Date Leonid is [...] Sister Jyotsna involved in his care cell# [phone] Guardian: Giulia (tapan met in person 09/01/21), [...] note from 11.08.2023 at [facility] (follow up 6 months)Colon & Rectal Surgery visit scheduled for 03/08/24 with Matilde Pérez PA-C. 02/08/2024
--- OUTSIDE RECORDS SUMMARY | 2024-03-03 14:19 | XMS_ITS | CCD ---
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 Name Role Phone Arpit MCKINLEY-CHarrison Primary Care Provider Leona vailable Mcdonald [employer], [facility] U navailable Summary Purpose DataExchange Insurance Providers Payer name Policy type / Coverage type Covered republican ID Effective Begin Date Effective End Date [place] Part [place] [id number] Unknown Unknown Medicaid [place] Part B [id number] Unknown Unknown Family history Sister Brittany Suggs Diagnosis Age At Onset No Family Disease Entered N/A Runs in the family Diagnosis Age At Onset No Known Diseases N/A Sister Blanka Mcduffie Diagnosis Age At Onset No Family Disease Entered N/A Social History Social History Element Codes Description Effec tive Dates Tobacco history SNOMED CT: 412861826 Never smoker 01/16 Sexually Active? Unknown No [...] 10/07/2021 Living arrangements Unknown Intermediate 09/03/[address]: 945015492 No Alcohol Consum ption 09/02/2020 Allergies, Adverse Reactions, Alerts Substance Reaction Codes Entered Date Inactivated Date Status * NO KNOWN FOOD ALLERGIES Ivejers5107/13/2023No Inactive DateActiveLISINOPRILRxNorm: 6572480No Inactive DateActiveMetformin EAxWjunwxj31/28/2020No Inactive DateActive* NO KNOWN ENVIRONMENTAL [id number]/27/2024No Inactive DateActive Problems Condition Codes Effective Dates [...] E55.9 ICD-9: 268.909/ctiveCallus of heelICD-10: L84 ICD-9: 17576/esolvedGout due to renal impairmentICD-10: M10.30 ICD-9: 274.1005/esolvedHyperhidrosis of palmsICD-10: L74.512 ICD-9: 705.2105esolvedHyperlipidemia, unspecifiedICD-10: E78.5 ICD-9: 272.405/esolvedOther fpc (current) drug therapyICD-10: Z79.899 ICD-9: V58.6905/esolvedPain of [...] tagICD-10: L91.8 ICD-9: 701.904/esolvedCoronary artery disease involving venetie ira coronary artery of venetie ira heart, angina presence unspecifiedICD-10: I25.10 ICD-9: 414.0102/ctiveInappropriate sexual behaviorICD-10: Z72.89 ICD-9: 312.8910/ctivePre-op evaluationICD-10: Z01.818 ICD-9: V72.8403/ctiveSecondary hypertensionICD-10: I15.9 ICD-9: 405.9903/ctiveDepressionICD-10: F32.9 ICD-9: 40199/esolvedDVT (deep venous thrombosis)ICD-10: I82.409 ICD-9: 453.4009/esolvedEncounter for immunizationICD-10: Z23 ICD-9: V03.8909/2ResolvedLong term (current) use of insulinICD-10: Z79.4 2ResolvedMuscular painICD-10: M79.10 ICD-9: 729.109/esolvedHypertension associated with diabetesICD-10: E11.59 ICD-9: 250.8008/esolvedContact with and (suspected) exposure to covid-19 ICD-10: Z20.822 ICD-9: V01.7908/esolvedOther infective acute otitis externa of left ear ICD-10: H60.392 ICD-9: 380.1008/esolvedScrotal skin lesionICD-10: N50.9 ICD-9: 608.908/esolvedAnemia due to stage 3b chronic kidney diseaseICD- 10: N18.32 ICD-9: 285.2105/1ResolvedChronic kidney disease, stage 3 unspecifiedICD- 10: N18.3004/esolvedContact with and (suspected) exposure to other viral communicable diseasesICD-10: Z20.828 ICD-9: V01.7902/9026DxtejuyrEwaxnsxbVwgorbh07/28/2020ActiveDiabetes mellitus Type 6Ubnzwwy71/28/2020ActiveAnemia in chronic kidney diseaseICD-10: D63.1 02/12/2020ResolvedHyperlipidemia, unspecifiedICD-10: E78.Resolved Medications Medication Codes Instructions Start Date Stop Date Status Fill Instructions FreeStyle Chema 2 Sensor kit RxNorm: Use UD as directed 03/02/20 Inactive Pen Needle 30 gauge x 516 RxNorm: Pen(s) Use 1 needle as directed TID 03/02/20 024 Inactive nystatin 100,000 unit/gram topical powder RxNorm: 165261 Apply 1 Application Topical BID as needed abdominal/breast /groin folds 03/02/20 024 Active FreeStyle Chema 2 Sensor kit RxNorm: Use UD as directed 03/02/20 24 025 Active Accu-Chek Guide test strips RxNorm: Use 1 Test Strip QID 03/02/20 24 025 Active ok to substitute with any covered alternative test strip Lancets,Thin 28 gauge RxNorm: Use 1 as directed QID lancet 03/02/20 24 025 Active Pen Needle 30 gauge x 5/16 RxNorm: Pen(s) Use 1 needle as directed TID 03/02/20 24 025 Active Humulin R U-500 (Concentrated) Insulin 500 unit/mL subcutaneous soln RxNorm: 585823 Inject 100 Unit(s) Subcutaneous TID 02/17/20 24 025 Active Basaglar KwikPen U-100 Insulin 100 unit/mL (3 mL) subcutaneous RxNorm: 4502988 Inject 30 Unit(s) Subcutaneous BID 02/10/20 24 024 Active Please dispense one month supply. Humulin R U-500 (Concentrated) Insulin 500 unit/mL subcutaneous soln RxNorm: 715804 Inject 100 Unit(s) Subcutaneous TID 02/10/20 24 024 Inactive pregabalin 100 mg capsule RxNorm: 659946 Take 1 Capsule(s) Oral QAM every morning 02/07/20 24 024 Active isosorbide mononitrate ER 60 mg tablet,extended release 24 hr RxNorm: 838972 Take 1 Tablet(s) Oral QD 02/01/20 24 025 Active aripiprazole 15 mg tablet RxNorm: 053174 Take 1/2 Tablet(s) Oral QD 02/01/20 24 025 Active torsemide 20 mg tablet RxNorm: 978675 1 TAB ORALLY DAILY (DX: EDEMA) 01/27/20 No Stop Date Active potassium chloride ER 20 mEq tablet,extended release(part/cryst) RxNorm: 0077365 2 TABS (40MEQ) ORALLY TWICE DAILY (DX: HYPOKALEMIA) 01/27/20 No Stop Date Active cephalexin 500 mg capsule RxNorm: 433424 Take 1 Capsule(s) Oral QID 12/17/19 24 Inactive cephalexin 500 mg capsule RxNorm: 744550 Take 1 Capsule(s) Oral QID 12/17/19 24 Inactive acetaminophen 500 mg tablet RxNorm: 724745 (MAX APAP:4GM/24HR) Take 1 Tablet(s) Oral TID as needed for pain 12/10/19 24 Active torsemide 20 mg tablet RxNorm: 472205 Take 1 Tablet(s) Oral QD 10/26/19 24 Inactive potassium chloride ER 20 mEq tablet,extended release RxNorm: 838226 Take 2 Tablet(s) Oral BID 10/26/19 24 Active torsemide 20 mg tablet RxNorm: 19821114 Take 1 Tablet(s) Oral QD 10/26/19 24 Inactive potassium chloride ER 20 mEq tablet,extended release RxNorm: 19800522 Take 2 Tablet(s) Oral BID 10/26/19 24 Inactive Artificial Tears (PF) 0.1 %-0.3 % drops in a dropperette RxNorm: 965963 Apply 1-2 Drop(s) Both eyes BID as needed 09/28/19 24 Active erythromycin 5 mg/gram (0.5 %) eye ointment RxNorm: 888163 Apply 1 Application Both eyes QHS every night at bedtime Instill ~1 cm ribbon into affected eye 09/28/19 24 Inactive Artificial Tears (PF) 0.1 %-0.3 % drops in a dropperette RxNorm: 791227 Apply 1-2 Drop(s) Both eyes BID as needed 09/28/19 24 Inactive erythromycin 5 mg/gram (0.5 %) eye ointment RxNorm: 285493 Apply 1 Application Both eyes QHS every night at bedtime Instill ~1 cm ribbon into affected eye 09/28/19 24 Inactive acetaminophen 500 mg tablet RxNorm: 565976 (MAX APAP:4GM/24HR) Take 1 Tablet(s) Oral TID as needed for pain 09/24/19 24 Inactive carvedilol 25 mg tablet RxNorm: 640705 Take 1 Tablet(s) Oral QD 09/08/19 24 No Stop Date Active pregabalin 100 mg capsule RxNorm: 437312 Take 1 Capsule(s) Oral QAM every morning 09/07/19 24 024 Inactive rosuvastatin 40 mg tablet RxNorm: 243213 Take 1 Tablet(s) Oral QPM every evening 07/13/19 24 No Stop Date Active ezetimibe 10 mg tablet RxNorm: 709385 Take 1 Tablet(s) Oral QD 07/13/19 24 No Stop Date Active bisacodyl 10 mg rectal suppository RxNorm: 798220 Insert 1 Suppository Rectal QD as needed 07/13/19 24 No Stop Date Active polyethylene glycol 3350 17 gram/dose oral powder RxNorm: 138894 Take 17 Gram(s) Oral BID as needed mix in 4-8ox water 07/13/19 24 No Stop Date Active ketoconazole 2 % shampoo RxNorm: 506302 Apply 1 Application Topical UD as directed 07/13/19 24 No Stop Date Active Ozempic 1 mg/dose (4 mg/3 mL) subcutaneous pen injector RxNorm: 8527604 Inject 1 Milligram(s) Subcutaneous QW once a week 07/13/19 24 No Stop Date Active Guaifenesin AC 10 mg-100 mg/5 mL oral liquid RxNorm: 343123 Take 10 Milliliter(s) Oral Q4H every four hours as needed 07/13/19 24 No Stop Date Active ammonium lactate 12 % topical cream RxNorm: 086157 Apply 1 Application Topical BID 07/13/19 24 No Stop Date Active hydrocortisone 2.5 % topical cream RxNorm: 636761 Apply 1 Application Topical BID as needed 07/13/19 24 No Stop Date Active rosuvastatin 20 mg sprinkle capsule RxNorm: 3004392 Take 1 Capsule(s) Oral QD 07/13/19 24 No Stop Date Active Vascepa 1 gram capsule RxNorm: 1783924 Take 2 Capsule(s) Oral BID 07/13/19 24 No Stop Date Active venlafaxine ER 75 mg capsule,extended release 24 hr RxNorm: 414798 Take 3 Capsule(s) Oral QD 07/13/19 24 No Stop Date Active aripiprazole 15 mg tablet RxNorm: 925953 Take 1/2 Tablet(s) Oral QD 07/13/19 24 024 Inactive isosorbide mononitrate ER 60 mg tablet,extended release 24 hr RxNorm: 474231 Take 1 Tablet(s) Oral QD 07/13/19 24 024 Inactive Basaglar KwikPen U-100 Insulin 100 unit/mL (3 mL) subcutaneous RxNorm: 3989705 Inject 30U SubQ twice daily 07/07/19 24 024 Inactive Please dispense one month supply. Basaglar KwikPen U-100 Insulin 100 unit/mL (3 mL) subcutaneous RxNorm: 1228650 Inject 30U SubQ twice daily 07/07/19 24 024 Inactive Please dispense one month supply. pregabalin 150 mg capsule RxNorm: 789365 Take 1 Capsule(s) Oral QHS every night at bedtime 07/05/19 24 024 Inactive pregabalin 150 mg capsule RxNorm: 924119 Take 1 Capsule(s) Oral QHS every night at bedtime 07/05/19 24 024 Inactive polyethylene glycol 3350 17 gram/dose oral powder RxNorm: 968648 Take 1 Packet Oral QD as needed (1 packet = 17g) mix with 4-8oz of liquid 06/15/19 24 024 Inactive bisacodyl 10 mg rectal suppository RxNorm: 049862 Insert one suppository per rectum once daily as needed for constipation 06/15/19 24 024 Inactive bisacodyl 10 mg rectal suppository RxNorm: 640129 Insert one suppository per rectum once daily as needed for constipation 06/15/19 24 024 Inactive pregabalin 100 mg capsule RxNorm: 881501 Take 1 Capsule(s) Oral QAM every morning 04/27/20 23 024 Inactive Levemir FlexPen 100 unit/mL (3 mL) solution subcutaneous insulin pen RxNorm: 645593 Inject 30 Unit(s) Subcutaneous BID 04/27/20 23 024 Inactive rosuvastatin 40 mg tablet RxNorm: 045661 Take 1 Tablet(s) Oral QPM every evening 04/16/20 024 Inactive D/C rosuvastatin 20mg venlafaxine ER 75 mg capsule,extended release 24 hr RxNorm: 605562 Take 3 Capsule(s) Oral QD 04/14/20 023 Inactive pregabalin 100 mg capsule RxNorm: 583471 Take 1 Capsule(s) Oral QAM every morning 04/14/20 023 Inactive Accu-Chek Guide Glucose Meter RxNorm: Use 1 Miscellaneous UD as directed Use glucose meter to monitor blood glucose 4 times daily and as needed. Dx:E11.42 03/26/20 023 Inactive ok to substitute with any covered alternative meter Accu-Chek Guide test strips RxNorm: Use 1 Test Strip QID 03/26/20 023 Inactive ok to substitute with any covered alternative test strip clotrimazole 1 % topical cream RxNorm: 256400 Take apply topically to abdominal folds twice daily for 14 days 03/12/20 024 Inactive Ozempic 1 mg/dose (4 mg/3 mL) subcutaneous pen injector RxNorm: 9454632 Inject 1 Milligram(s) Subcutaneous QW once a week 03/11/20 023 Inactive rosuvastatin 20 mg tablet RxNorm: 122106 Take 1 Tablet(s) Oral QD 02/26/20 23 023 Inactive d/c pravastatin 80mg Ozempic 1 mg/dose (4 mg/3 mL) subcutaneous pen injector RxNorm: 1361414 Inject 1 Milligram(s) Subcutaneous QW once a week 02/20/20 23 023 Inactive pregabalin 150 mg capsule RxNorm: 793194 Take 1 Capsule(s) Oral HS at bed time 02/19/20 23 023 Inactive pregabalin 100 mg capsule RxNorm: 327078 Take 1 Capsule(s) Oral QAM every morning 02/18/20 23 023 Inactive venlafaxine ER 75 mg capsule,extended release 24 hr RxNorm: 786729 Take 3 Capsule(s) Oral QD 02/04/20 23 023 Inactive FreeStyle Chema 2 Sensor kit RxNorm: use as directed 02/04/20 23 023 Inactive FreeStyle Chema 2 Sensor kit RxNorm: use as directed 02/04/20 23 024 Inactive fluconazole 150 mg tablet RxNorm: 860468 Take 1 Tablet(s) Oral on day 3 and on day 6 02/03/20 23 024 Inactive chlorthalidone 25 mg tablet RxNorm: 669837 Take 1 Tablet(s) Oral QAM every morning 02/03/20 No Stop Date Active venlafaxine ER 150 mg capsule,extended release 24 hr RxNorm: 424303 Take 1 Capsule(s) Oral QD 02/03/20 023 Inactive acetaminophen 500 mg tablet RxNorm: 849817 1 TABLET ORALLY 3 TIMES DAILY (MAX APAP:4GM/24HR) 12/15/19 23 023 Inactive clotrimazole 1 % topical cream RxNorm: 195316 apply 1g topically to top of feet and in between toes BID 12/09/19 23 023 Inactive potassium chloride ER 20 mEq tablet,extended release RxNorm: 255821 Take 1 Tablet(s) Oral BID 12/09/19 23 024 Inactive d/c 20mEq once daily (sent from hospital) nystatin 100,000 unit/gram topical powder RxNorm: 260884 APPLY TO AFFECTED AREAS TOPICALLY 2 TIMES DAILY 11/21/19 23 023 Inactive Nystop 100,000 unit/gram topical powder RxNorm: 529647 Apply to abd folds, under breasts and L side of groin Topical BID x 14 days, then BID PRN 11/20/19 23 023 Inactive dx: yeast dermatitis [place] Ultra Strength 4 %-30 %-10 % topical cream RxNorm: 768618 Apply 1 Gram(s) Topical QID PRN to feet and legs for neuropathic pain 11/11/19 23 024 Inactive clotrimazole 1 % topical cream RxNorm: 170074 Apply 1/2 Gram(s) Topical BID Apply to affected areas of groin, periarea, and abdominal topically 2 times daily 06/26/ 023 Inactive hydrocortisone 2.5 % topical cream RxNorm: 615994 Apply 1/2 Gram(s) Topical BID as needed 11/10/19 024 Inactive Levemir FlexPen 100 unit/mL (3 mL) solution subcutaneous insulin pen RxNorm: 694440 Inject 30 Unit(s) Subcutaneous BID 10/07/19 023 Inactive Humulin R U-500 (Concentrated) Insulin 500 unit/mL subcutaneous soln RxNorm: 958688 Inject 100 Unit(s) Subcutaneous TID 10/07/19 024 Inactive Ozempic 0.25 mg or 0.5 mg (2 mg/3 mL) subcutaneous pen injector RxNorm: 2232688 Inject 1/2 Milligram(s) Subcutaneous QW once a week 10/07/19 024 Inactive aripiprazole 15 mg tablet RxNorm: 023839 1/2 TAB (7.5MG) ORALLY DAILY (DX:MAJOR DEPRESSIVE DISORDER) 09/23/19 023 Inactive Accu-Chek Guide test strips RxNorm: Use 1 Test Strip QID 09/15/19 23 023 Inactive ok to substitute with any covered alternative test strip Lancets,Thin 28 gauge RxNorm: Use 1 as directed QID 09/15/19 23 023 Inactive torsemide 20 mg tablet RxNorm: 631760 Take 1 Tablet(s) Oral BID 09/09/19 024 Inactive d/c once daily dosing carvedilol 25 mg tablet RxNorm: 347648 Take 1 Tablet(s) Oral QD 08/25/19 23 024 Inactive pregabalin 150 mg capsule RxNorm: 887339 1 Capsule(s) Oral HS at bed time 08/18/19 023 Inactive pregabalin 100 mg capsule RxNorm: 714694 1 Capsule(s) Oral QAM every morning 08/18/19 023 Inactive carvedilol 25 mg tablet RxNorm: 692439 1 Tablet(s) Oral QD 07/28/19 23 023 Inactive lisinopril 20 mg tablet RxNorm: 368646 Give 1 Tablet(s) Oral QD 07/28/19 23 023 Inactive Lyrica 150 mg capsule RxNorm: 609371 Take 1 Capsule(s) Oral QHS every night at bedtime 07/19/19 23 023 Inactive d/c 100mg dose Diflucan 150 mg tablet RxNorm: 186101 Take 1 Tablet(s) Oral QD repeat on day 3 and 6 07/19/19 23 023 Inactive pregabalin 100 mg capsule RxNorm: 263238 Take 1 Capsule(s) Oral QAM every morning 07/19/19 23 023 Inactive gatifloxacin 0.5 % eye drops RxNorm: 158145 Instill 1 Drop(s) as directed TID Instill 1 drop in to affected eye(s) starting 1 day prior to surgery and continue until gone (do not exceed 4 weeks). 07/13/19 23 023 Inactive carvedilol 25 mg tablet RxNorm: 019884 2 Tablet(s) Oral BID 07/13/19 23 023 Inactive Humulin R Regular U-100 Insulin 100 unit/mL injection solution RxNorm: 859876 85 Unit(s) Injection TID 07/13/19 23 023 Inactive ketorolac 0.5 % eye drops RxNorm: 398890 Instill 1 Drop(s) as directed QID Instill 1 drop into affected eye(s) 4 times daily starting 1 day prior to surgery and continue until gone (do not exceed 4 weeks). 07/13/19 23 023 Inactive Diflucan 150 mg tablet RxNorm: 926459 Take 1 Tablet(s) Oral QD repeat on day 3 and 6 06/30/19 23 023 Inactive Accu-Chek Guide test strips RxNorm: Use 1 Test Strip QID Use 1 test strip to monitor blood glucose 4 times daily and as needed. Dx:E11.42. 06/23/19 23 023 Inactive ok to substitute with any covered alternative test strip dextromethorphan-gu aifenesin 10 mg-100 mg/5 mL oral liquid RxNorm: 201442 Take 10 Milliliter(s) Oral every 4 hours as needed for cough 06/19/19 023 Inactive dextromethorphan-gu aifenesin 10 mg-100 mg/5 mL oral liquid RxNorm: 861168 Take 10 Milliliter(s) Oral every 4 hours as needed for cough 06/19/19 023 Inactive Lyrica 150 mg capsule RxNorm: 977141 Take 1 Capsule(s) Oral QHS every night at bedtime 06/18/19 023 Inactive d/c 100mg dose aripiprazole 15 mg tablet RxNorm: 258957 05/18 TAB (7.5MG) ORALLY DAILY (DX:MAJOR DEPRESSIVE DISORDER) 06/05/19 023 Inactive pregabalin 100 mg capsule RxNorm: 046355 1 Capsule(s) Oral QAM every morning 06/02/19 023 Inactive Banophen 50 mg capsule RxNorm: 7426471 Take 1 Capsule(s) Oral Q6H every 6 hours as needed 05/19/19 23 No Stop Date Active Novolog Flexpen U-100 Insulin aspart 100 unit/mL (3 mL) subcutaneous RxNorm: 4606843 Inject 10 Unit(s) Subcutaneous QHS every night at bedtime with nighttime snack 04/08/20 022 Inactive Novolog Flexpen U-100 Insulin aspart 100 unit/mL (3 mL) subcutaneous RxNorm: 9717127 Inject 42 Unit(s) Subcutaneous TID in addition to sliding scale 04/08/20 022 Inactive d/c 36u albuterol sulfate HFA 90 mcg/actuation aerosol inhaler RxNorm: 1563632 Take 2 Puff(s) Inhalation Q4H every four hours as needed as needed for SOB, cough, or wheezing 04/07/20 030 Active Banophen 50 mg capsule RxNorm: 3086203 Take 1 Capsule(s) Oral Q6H every 6 hours as needed 04/06/20 023 Inactive diphenhydramine 50 mg tablet RxNorm: 9751262 Take 1 Tablet(s) Oral Q6H every 6 hours as needed 04/06/20 022 Inactive diphenhydramine 50 mg tablet RxNorm: 8182325 1 Tablet(s) Oral Q6H every 6 hours as needed 04/06/20 22 022 Inactive Abilify 15 mg tablet RxNorm: 410731 1/2 Tablet(s) Oral QD 03/10/20 22 023 Inactive Shingrix (PF) 50 mcg/0.5 mL intramuscular suspension, kit RxNorm: 0760170 Administer 1/2 Milliliter(s) Intramuscular QD one time shingrix step 2 ( step 1 given 11/04/21) WITH needle - Nursing please administer upon arrival and once administered post a bridge message with date of administration, prosthetist, expiration date, and lot# so we can update [facility] 02/18/20 22 022 Inactive dispense with needle Shingrix (PF) 50 mcg/0.5 mL intramuscular suspension, kit RxNorm: 1332999 Administer 1/2 Milliliter(s) Intramuscular QD one time shingrix step 2 ( step 1 given 11/04/21) WITH needle - Nursing please administer upon arrival and once administered post a bridge message with date of administration, prosthetist, expiration date, and lot# so we can update [facility] 02/18/20 22 022 Inactive dispense with needle polyethylene glycol 3350 17 gram/dose oral powder RxNorm: 566328 Take 17=1 capful Gram(s) Oral QD mix with 4-8oz of liquid 01/08/20 22 023 Inactive take this in addition to BID prn order Lyrica 100 mg capsule RxNorm: 518693 Take 1 Capsule(s) Oral QAM every morning 01/08/20 22 022 Inactive d/c 50mg dose acetaminophen 500 mg tablet RxNorm: 532905 Take 1 Tablet(s) Oral TID 01/08/20 22 022 Inactive d/c PRN order Lyrica 150 mg capsule RxNorm: 036003 Take 1 Capsule(s) Oral QHS every night at bedtime 01/08/20 22 023 Inactive d/c 100mg dose Abilify 5 mg tablet RxNorm: 313238 Take 1 Tablet(s) Oral QD take 1 tab po QD #30 refill 5 dx: MDD 12/12/19 022 Inactive Abilify 5 mg tablet RxNorm: 945952 Take 1 Tablet(s) Oral QD take 1 tab po QD #30 refill 5 dx: MDD 12/12/19 22 022 Inactive Novolog Flexpen U-100 Insulin aspart 100 unit/mL (3 mL) subcutaneous RxNorm: 6444480 Inject 42 Unit(s) Subcutaneous TID in addition to sliding scale 12/10/19 22 022 Inactive d/c 36u chlorthalidone 25 mg tablet RxNorm: 729077 Take 1 Tablet(s) Oral QAM every morning 12/10/19 22 023 Inactive pregabalin 50 mg capsule RxNorm: 233331 Take 1 Capsule(s) Oral QAM every morning 11/12/19 022 Inactive tetanus-diphtheria toxoids-Td 2 Lf unit-2 Lf unit/0.5 mL IM suspension RxNorm: 139 Take 0.5 Miscellaneous Intramuscular 11/12/19 022 Inactive need tdap - nursing to administer upon arrival pregabalin 50 mg capsule RxNorm: 392426 Take 1 Capsule(s) Oral QAM every morning 10/16/19 22 022 Inactive pregabalin 50 mg capsule RxNorm: 910516 Take 1 Capsule(s) Oral QAM every morning 10/16/19 22 022 Inactive pregabalin 50 mg capsule RxNorm: 406013 1 Capsule(s) Oral QAM every morning 10/15/19 22 022 Inactive Shingrix (PF) 50 mcg/0.5 mL intramuscular suspension, kit RxNorm: 9815375 Administer 1/2 Milliliter(s) Intramuscular one time Nursing please administer upon arrival and once administered post a bridge message with date of administration, prosthetist, expiration date, and lot# so we can update [facility]. 10/09/19 22 022 Inactive shingrix step 1 Shingrix (PF) 50 mcg/0.5 mL intramuscular suspension, kit RxNorm: 0545833 Administer 1/2 Milliliter(s) Intramuscular one time Nursing please administer upon arrival and once administered post a bridge message with date of administration, prosthetist, expiration date, and lot# so we can update [facility]. 10/09/19 22 Inactive shingrix step 1 cholecalciferol (vitamin D3) 1,250 mcg (50,000 unit) capsule RxNorm: 572522 Take 1 Capsule(s) Oral QW once a [...] aspart 100 unit/mL (3 mL) subcutaneous RxNorm: 9150818 Inject 10 Unit(s) Subcutaneous QHS every night at bedtime with nighttime snack 10/08/19 22 Inactive Shingrix (PF) 50 mcg/0.5 mL intramuscular suspension, kit RxNorm: 7892074 ADMINISTER 2-DOSE SERIES PER CDC GUIDELINES 10/08/19 22 Active Shingrix (PF) 50 mcg/0.5 mL intramuscular suspension, kit RxNorm: 7759432 ADMINISTER 2-DOSE SERIES PER CDC GUIDELINES 10/08/19 22 Inactive Novolog Flexpen U-100 Insulin aspart 100 unit/mL (3 mL) subcutaneous RxNorm: 4203905 Inject 36 Unit(s) Subcutaneous TID in addition to sliding scale 10/08/19 22 Inactive Novofine Autocover 30 gauge x 1/3 needle RxNorm: Use 1 Miscellaneous UD as directed Use 1 needle as directed to administer insulin 5 times a day Dx:E11.42. 10/03/19 22 Inactive ok to substitute with any covered alternative pen needle benzoyl peroxide 10 % topical cleanser RxNorm: 576748 Apply 1 Application Topical QD apply to face, wash rinse and dry once daily (may change to QOD if drying) 08/19/19 22 022 Inactive (%covered by insurance) #60ml refill 11 dx: acne benzoyl peroxide 10 % topical cleanser RxNorm: 608836 Apply 1 Application Topical QD apply to face, wash rinse and dry once daily (may change to QOD if drying) 08/19/19 22 022 Inactive (%covered by insurance) #60ml refill 11 dx: acne benzoyl peroxide 10 % topical cleanser RxNorm: 913623 Apply 1 Application Topical QD apply to face, wash rinse and dry once daily (may change to QOD if drying) 08/19/19 22 022 Inactive (%covered by insurance) #60ml refill 11 dx: acne Lyrica 50 mg capsule RxNorm: 424134 Take 1 Capsule(s) Oral QAM every morning Take 1 capsule by mouth once daily 08/19/19 022 Inactive benzoyl peroxide 10 % topical cleanser RxNorm: 156396 Apply 1 Application Topical QD apply to face, wash rinse and dry once daily (may change to QOD if drying) 08/19/19 22 022 Inactive (%covered by insurance) #60ml refill 11 dx: acne Lyrica 100 mg capsule RxNorm: 985937 Take 1 Capsule(s) Oral QHS every night at bedtime Take 1 capsule by mouth once daily at bedtime 08/19/19 22 022 Inactive Lyrica 100 mg capsule RxNorm: 765653 Take 1 Capsule(s) Oral QHS every night at bedtime Take 1 capsule by mouth once daily at bedtime 08/16/19 022 Inactive Lyrica 50 mg capsule RxNorm: 533016 Take 1 Capsule(s) Oral QAM every morning Take 1 capsule by mouth once daily 08/16/19 Inactive Levemir FlexTouch U-100 Insulin 100 unit/mL (3 mL) subcutaneous pen RxNorm: 224627 Inject 86 Unit(s) Subcutaneous BID 08/05/19 22 022 Inactive d/c 83units BID Lyrica 100 mg capsule RxNorm: 994022 Take 1 Capsule(s) Oral QHS every night at bedtime Take 1 capsule by mouth once daily at bedtime 07/14/19 22 Inactive Lyrica 50 mg capsule RxNorm: 443718 Take 1 Capsule(s) Oral QAM every morning Take 1 capsule by mouth once daily 07/14/19 22 Inactive Levemir FlexTouch U-100 Insulin 100 unit/mL (3 mL) subcutaneous pen RxNorm: 395576 Inject 83 Unit(s) Subcutaneous BID 07/08/19 22 [...] test strip hydralazine 50 mg tablet RxNorm: 214612 Take 1 Tablet(s) Oral QID 05/05/20 022 Inactive venlafaxine ER 225 mg tablet,extended release 24 hr RxNorm: 199197 Take 1 Tablet(s) Oral QD 05/05/20 21 021 Inactive venlafaxine ER 225 mg tablet,extended release 24 hr RxNorm: 817372 Take 1 Tablet(s) Oral QD 05/05/20 022 Inactive isosorbide mononitrate ER 30 mg tablet,extended release 24 hr RxNorm: 547247 Take 1 Tablet(s) Oral QD 05/05/20 024 Inactive hydralazine 50 mg tablet RxNorm: 331913 Take 1 Tablet(s) Oral QID 05/05/20 21 Inactive aspirin 81 mg tablet,delayed release RxNorm: 009053 Take 1 Tablet(s) Oral QD 03/31/20 022 Inactive Vitamin D2 1,250 mcg (50,000 unit) capsule RxNorm: 0905291 Take 1 Capsule(s) Oral QW once a week x 12 weeks 03/31/20 022 Inactive Vitamin D2 1,250 mcg (50,000 unit) capsule RxNorm: 5984928 Take 1 Capsule(s) Oral QW once a week 03/31/20 021 Inactive Zetia 10 mg tablet RxNorm: 083146 Take 1 Tablet(s) Oral QD 03/31/20 024 Inactive Zetia 10 mg tablet RxNorm: 645488 Take 1 Tablet(s) Oral QD 03/31/20 021 Inactive hydralazine 25 mg tablet RxNorm: 743406 Take 1 Tablet(s) Oral QID 03/31/20 21 021 Inactive hydralazine 25 mg tablet RxNorm: 257568 Take 1 Tablet(s) Oral QID 03/31/20 021 Inactive hydralazine 10 mg tablet RxNorm: 530206 Take 1 Tablet(s) Oral QID 03/03/20 021 Inactive cephalexin 500 mg tablet RxNorm: 951627 Take 1 Tablet(s) Oral QID 02/27/20 021 Inactive cephalexin 500 mg tablet RxNorm: 646371 Take 1 Tablet(s) Oral QID 02/27/20 021 Inactive lisinopril 40 mg tablet RxNorm: 201387 Take 1 Tablet(s) Oral QD 02/11/20 023 Inactive Eliquis 5 mg tablet RxNorm: 8345665 Take 1 Tablet(s) Oral BID 01/05/20 21 022 Inactive Eliquis 5 mg tablet RxNorm: 3103425 Take 2 Tablet(s) Oral QD 01/01/20 21 021 Inactive Lyrica 50 mg capsule RxNorm: 181347 Take 1 Capsule(s) Oral QAM every morning 12/24/19 021 Inactive Lyrica 100 mg capsule RxNorm: 557296 Take 1 Capsule(s) Oral QHS every night at bedtime 12/24/19 021 Inactive clotrimazole 1 % topical cream RxNorm: 335902 Apply to right foot and toes Topical BID 12/04/19 21 023 Inactive metoprolol succinate ER 200 mg tablet,extended release 24 hr RxNorm: 688724 Take 1 Tablet(s) Oral QD 12/04/19 023 Inactive ciprofloxacin 500 mg tablet RxNorm: 841280 Take 1 Tablet(s) Oral QD 11/30/19 021 Inactive DX ofloxacin otic drops Accu-Chek Guide test strips RxNorm: USE 1 TO CHECK GLUCOSE 4 TIMES DAILY AND NEEDED 11/15/19 21 023 Inactive Blood Glucose Test strips RxNorm: Use 1 Test Strip QID at PRN 11/05/19 21 023 Inactive E11.42 lisinopril 30 mg tablet RxNorm: 302244 Take 1 Tablet(s) Oral QD 10/30/19 21 021 Inactive lisinopril 20 mg tablet RxNorm: 155902 Take 1 Tablet(s) Oral QD 10/23/19 021 Inactive lisinopril 20 mg tablet RxNorm: 099052 Take 1 Tablet(s) Oral QD 10/23/19 21 021 Inactive lisinopril 10 mg tablet RxNorm: 058676 Take 1 Tablet(s) Oral QD 10/02/19 21 021 Inactive icosapent ethyl 1 gram capsule RxNorm: 4099573 Take 2 Capsule(s) (2 gm) Oral BID with meals 09/12/19 21 024 Inactive Okay to dispense one 2gm tab if you have that available. icosapent ethyl 1 gram capsule RxNorm: 3575827 Take 2 Capsule(s) Oral BID 09/12/19 21 021 Inactive Okay to dispense one 2gm tab if you have that available. amlodipine 10 mg tablet RxNorm: 175218 Take 1 Tablet(s) Oral QD 09/04/19 21 022 Inactive aspirin 81 mg tablet,delayed release RxNorm: 752282 Take 1 Tablet(s) Oral QD 09/04/19 021 Inactive Levemir FlexTouch U-100 Insulin 100 unit/mL (3 mL) subcutaneous pen RxNorm: 531901 Inject 150 Unit(s) Subcutaneous BID 09/04/19 21 022 Inactive venlafaxine ER 150 mg tablet,extended release 24 hr RxNorm: 273326 Take 1 Tablet(s) Oral QD 09/04/19 21 021 Inactive clotrimazole-betame thasone 1 %-0.05 % topical cream RxNorm: 984959 Apply to rash on red area on left abdomen/chest Topical BID 08/10/19 21 021 Inactive amlodipine 5 mg tablet RxNorm: 849906 Take 1 Tablet(s) Oral QD 07/31/19 21 021 Inactive cephalexin 500 mg tablet RxNorm: 158054 Take 1 Tablet(s) Oral BID BID - Twice Daily 07/31/19 21 021 Inactive Start 08/01/20 pantoprazole 40 mg tablet,delayed release RxNorm: 929262 Take 1 Tablet(s) Oral QAM every morning 07/08/19 21 022 Inactive senna 8.6 mg tablet RxNorm: 657325 Take 1 Tablet(s) Oral QD 07/08/19 21 022 Inactive carbamazepine 200 mg tablet RxNorm: 053475 Take 1 Tablet(s) Oral BID 07/08/19 21 022 Inactive clopidogrel 75 mg tablet RxNorm: 128952 Take 1 Tablet(s) Oral QD 07/08/19 21 021 Inactive Blood Glucose Test strips RxNorm: Use 1 Test Strip QID at PRN 07/08/19 21 Inactive E11.42 Novolog Flexpen U-100 Insulin aspart 100 unit/mL (3 mL) subcutaneous RxNorm: 3820709 Administer per sliding scale Milliliter(s) Subcutaneous TID 151-200: 10 u; 201-250: 20 u; 251-300: 30 u; 301-350: 40 u; 351-400: 50 u. 07/08/19 21 022 Inactive lisinopril 5 mg tablet RxNorm: 575169 Take 1 Tablet(s) Oral QD 07/08/19 021 Inactive Novolog Flexpen U-100 Insulin aspart 100 unit/mL (3 mL) subcutaneous RxNorm: 4091200 Inject 85 Unit(s) Subcutaneous TID 07/08/19 022 Inactive pravastatin 80 mg tablet RxNorm: 409141 Take 1 Tablet(s) Oral QHS every night at bedtime 07/08/19 21 023 Inactive clotrimazole 1 % topical cream RxNorm: 167651 Apply to bilateral groin areas Topical BID 07/08/19 21 022 Inactive metoprolol succinate ER 200 mg tablet,extended release 24 hr RxNorm: 803463 Take 1 Tablet(s) Oral QD 07/08/19 21 021 Inactive Vitamin D3 25 mcg (1,000 unit) tablet RxNorm: 949011 Take 1 Tablet(s) Oral QD 07/08/19 21 021 Inactive isosorbide dinitrate 30 mg tablet RxNorm: 995812 Take 1 Tablet(s) Oral QD 07/08/19 21 021 Inactive Levemir FlexTouch U-100 Insulin 100 unit/mL (3 mL) subcutaneous pen RxNorm: 370955 Inject 140 Unit(s) Subcutaneous BID 07/08/19 21 021 Inactive torsemide 20 mg tablet RxNorm: 163558 Take 1 Tablet(s) Oral QD 07/08/19 21 023 Inactive venlafaxine 75 mg tablet RxNorm: 262196 Take 1 Tablet(s) Oral QD 07/08/19 21 021 Inactive acetaminophen 500 mg tablet RxNorm: 159938 Take 1 Tablet(s) Oral TID as needed for headache 06/18/19 21 021 Inactive acetaminophen 500 mg tablet RxNorm: Take 1 Tablet(s) Oral TID as needed for headache 06/18/19 21 021 Inactive Lyrica 100 mg capsule RxNorm: 038487 Take 1 Capsule(s) Oral QHS every night at bedtime 06/11/19 21 021 Inactive Lyrica 50 mg capsule RxNorm: 708408 Take 1 Capsule(s) Oral QAM every morning 06/10/19 21 021 Inactive hydrocortisone 2.5 % topical cream RxNorm: 738046 Apply to bilateral groin creases Topical BID 05/15/20 20 021 Inactive clotrimazole 1 % topical cream RxNorm: 784999 Apply to bilateral groin areas Topical BID 05/15/20 20 021 Inactive Lyrica 50 mg capsule RxNorm: 436533 Take 1 Capsule(s) Oral QAM every morning 05/14/20 20 020 Inactive Lyrica 100 mg capsule RxNorm: 519641 Take 1 Capsule(s) Oral QHS every night [...] Inactive Nystop 100,000 unit/gram topical powder RxNorm: 479280 Apply to abd folds, under breasts and L side of groin Topical BID x 14 days, then BID PRN 04/08/20 20 Inactive dx: yeast dermatitis Lyrica 100 mg capsule RxNorm: 643381 Take 1 Capsule(s) Oral QHS every night at bedtime 03/13/20 20 Inactive Lyrica 50 mg capsule RxNorm: 856571 Take 1 Capsule(s) Oral QAM every morning 03/13/20 20 Inactive ketoconazole 2 % shampoo RxNorm: 574337 Apply Topical two times a week with showers 03/11/20 20 Inactive cholecalciferol (vitamin D3) 50 mcg (2,000 unit) tablet RxNorm: 019268 Take 1 Tablet(s) Oral QD 03/11/20 20 021 Inactive Zetia 10 mg tablet RxNorm: 964975 Take 1 Tablet(s) Oral QD 03/07/20 20 021 Inactive Zetia 10 mg tablet RxNorm: 614790 Take 1 Tablet(s) Oral QD 03/07/20 20 Inactive Lyrica 50 mg capsule RxNorm: 549742 Take 1 Capsule(s) Oral QAM every morning 02/15/20 20 Inactive Lyrica 100 mg capsule RxNorm: 036962 Take 1 Capsule(s) Oral QHS every night at bedtime 02/15/20 20 Inactive Lyrica 100 mg capsule RxNorm: 498073 Take 1 Capsule(s) Oral QHS every night at bedtime 02/15/20 20 Inactive Lyrica 50 mg capsule RxNorm: 722357 Take 1 Capsule(s) Oral QAM every morning 02/15/20 20 10/01/2 020 Inactive metoprolol succinate ER 200 mg tablet,extended release 24 hr RxNorm: 735995 Take 1 Tablet(s) Oral QD 08/11 Activeloperamide 2 mg capsuleRxNorm: 663515Azaa 1 Capsule(s) Oral QID as needed 06/12/2021ctivehydralazine 50 mg tabletRxNorm: 277568Uxxg 1 Tablet(s) Oral QID 08/11/2022ctivevenlafaxine ER 75 mg capsule,extended release 24 hrRxNorm: 452349Gyjb 3 Capsule(s) Oral QD/Inactivepolyethylene glycol 3350 17 gram/dose oral powderRxNorm: 259193Heuc 17=1 capful Gram(s) Oral BID as needed mix with 4-8oz of gxyizl03/Inactiveicosapent ethyl 1 gram capsuleRxNorm: 2602906Apun 2 Capsule(s) (2 gm) Oral BID with meals /InactiveOkay to dispense one 2gm tab if you have that available.Levemir FlexTouch U-100 Insulin 100 unit/mL (3 mL) subcutaneous pen RxNorm: 857844Lrbjwf 80 Unit(s) Subcutaneous BID/Inactive Novolog Flexpen U-100 Insulin aspart 100 unit/mL (3 mL) subcutaneousRxNorm: 3789632Ylpwhr 30 Unit(s) Subcutaneous TID with meals/Inactive Medication [...] [facility] WPtel: [address] , [address] [id number] USReferralRecords [id number]/08/2023Referral: [facility] WPtel: [address] [id number]/12/2022Referral: General CardiologyReferralCompleted 1Referral: General PsychologistReferralClosedReferral: General PsychiatristReferralPatient/Family [...] [facility] have closer nursing attention. Sister Jyotsna involved in his care cell# [phone] Guardian: Don (tapan met in person 09/01/21), [...] note from 11.08.2023 at [facility] (follow up 6 months)Colon & Rectal Surgery visit scheduled for 03/08/24 with Matilde Pérez PA-C. 02/08/2024
--- OUTSIDE RECORDS SUMMARY | 2024-03-03 14:20 | XMS_ITS | CCD ---
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 Name Role Phone Arpit MCKINLEY-CHarrison Primary Care Provider Leona vailable [place] [employer], [facility] Management U navailable Summary Purpose DataExchange Insurance Providers Payer name Policy type / Coverage type Covered constitution party ID Effective Begin Date Effective End Date [place] [id number] Unknown Unknown Medicaid [place] Medicare Part B [id number] Unknown Unknown Family history Sister Brittany Suggs Diagnosis Age At Onset No Family Disease Entered N/A Runs in the family Diagnosis Age At Onset No Known Diseases N/A Sister Blanka Mcduffie Diagnosis Age At Onset No Family Disease Entered N/A Social History Social History Element Codes Description Effec tive Dates Tobacco history SNOMED CT: 145701561 Never smoker 01/16 Sexually Active? Unknown No [...] 10/07/2021 Living arrangements Unknown [facility] 09/03/[address]: 362252752 No Alcohol Consum ption 09/02/2020 Allergies, Adverse Reactions, Alerts Substance Reaction Codes Entered Date Inactivated Date Status * NO KNOWN FOOD ALLERGIES Ekiarrh1207/13/2023No Inactive DateActiveLISINOPRILRxNorm: 1451681No Inactive DateActiveMetformin QMbAnbsuis35/28/2020No Inactive DateActive* NO KNOWN ENVIRONMENTAL LWEUOOZADYobbyej70/27/2024No Inactive DateActive Problems Condition Codes Effective Dates [...] E55.9 ICD-9: 268.909/ctiveCallus of heelICD-10: L84 ICD-9: 67903/esolvedGout due to renal impairmentICD-10: M10.30 ICD-9: 274.1005/esolvedHyperhidrosis of palmsICD-10: L74.512 ICD-9: 705.2105esolvedHyperlipidemia, unspecifiedICD-10: E78.5 ICD-9: 272.405/esolvedOther fdc (current) drug therapyICD-10: Z79.899 ICD-9: V58.6905/esolvedPain [...] tagICD-10: L91.8 ICD-9: 701.904/esolvedCoronary artery disease involving [place] coronary artery of [place] heart, angina presence unspecifiedICD-10: I25.10 ICD-9: 414.0102/ctiveInappropriate sexual behaviorICD-10: Z72.89 ICD-9: 312.8910/ctivePre-op evaluationICD-10: Z01.818 ICD-9: V72.8403/ctiveSecondary hypertensionICD-10: I15.9 ICD-9: 405.9903/ctiveDepressionICD-10: F32.9 ICD-9: 77157/esolvedDVT (deep venous thrombosis)ICD-10: I82.409 ICD-9: 453.4009/esolvedEncounter for [...] to other viral communicable diseasesICD-10: Z20.828 ICD-9: V01.7902/0688BniuypizDawnnysgAxlgtda62/28/2020ActiveDiabetes mellitus Type 6Iadtflh78/28/2020ActiveAnemia in chronic kidney diseaseICD-10: D63.1 02/12/2020ResolvedHyperlipidemia, unspecifiedICD-10: E78.Resolved Medications Medication Codes Instructions Start Date Stop Date Status Fill Instructions FreeStyle Chema 2 Sensor kit RxNorm: Use UD as directed 03/02/20 Inactive Pen Needle 30 gauge x 516 RxNorm: Pen(s) Use 1 needle as directed TID 03/02/20 024 Inactive nystatin 100,000 unit/gram topical powder RxNorm: 720645 Apply 1 Application Topical BID as needed [...] (Concentrated) Insulin 500 unit/mL subcutaneous soln RxNorm: 615595 Inject 100 Unit(s) Subcutaneous TID 02/17/20 24 025 Active Basaglar KwikPen U-100 Insulin 100 unit/mL (3 mL) subcutaneous RxNorm: 8469186 Inject 30 Unit(s) Subcutaneous BID 02/10/20 24 024 Active Please dispense one month supply. Humulin R U-500 (Concentrated) Insulin 500 unit/mL subcutaneous soln RxNorm: 788390 Inject 100 Unit(s) Subcutaneous TID 02/10/20 24 024 Inactive pregabalin 100 mg capsule RxNorm: 067421 Take 1 Capsule(s) Oral QAM every morning 02/07/20 24 024 Active isosorbide mononitrate ER 60 mg tablet,extended release 24 hr RxNorm: 946505 Take 1 Tablet(s) Oral QD 02/01/20 24 025 Active aripiprazole 15 mg tablet RxNorm: 067208 Take 1/2 Tablet(s) Oral QD 02/01/20 24 025 Active torsemide 20 mg tablet RxNorm: 181519 1 TAB ORALLY DAILY (DX: EDEMA) 01/27/20 No Stop Date Active potassium chloride ER 20 mEq tablet,extended release(part/cryst) RxNorm: 7251040 2 TABS (40MEQ) ORALLY TWICE DAILY (DX: HYPOKALEMIA) 01/27/20 No Stop Date Active cephalexin 500 mg capsule RxNorm: 973490 Take 1 Capsule(s) Oral QID 12/17/19 24 Inactive cephalexin 500 mg capsule RxNorm: 176443 Take 1 Capsule(s) Oral QID 12/17/19 24 Inactive acetaminophen 500 mg tablet RxNorm: 527051 (MAX APAP:4GM/24HR) Take 1 Tablet(s) Oral TID as needed for pain 12/10/19 24 Active torsemide 20 mg tablet RxNorm: 955168 Take 1 Tablet(s) Oral QD 10/26/19 24 Inactive potassium chloride ER 20 mEq tablet,extended release RxNorm: 728662 Take 2 Tablet(s) Oral BID 10/26/19 24 Active torsemide 20 mg tablet RxNorm: 19821114 Take 1 Tablet(s) Oral QD 10/26/19 24 Inactive potassium chloride ER 20 mEq tablet,extended release RxNorm: 19800522 Take 2 Tablet(s) Oral BID 10/26/19 24 Inactive Artificial Tears (PF) 0.1 %-0.3 % drops in a dropperette RxNorm: 171647 Apply 1-2 Drop(s) Both eyes BID as needed 09/28/19 24 Active erythromycin 5 mg/gram (0.5 %) eye ointment RxNorm: 476750 Apply 1 Application Both eyes QHS every night at bedtime Instill ~1 cm ribbon into affected eye 09/28/19 24 Inactive Artificial Tears (PF) 0.1 %-0.3 % drops in a dropperette RxNorm: 502541 Apply 1-2 Drop(s) Both eyes BID as needed 09/28/19 24 Inactive erythromycin 5 mg/gram (0.5 %) eye ointment RxNorm: 697576 Apply 1 Application Both eyes QHS every night at bedtime Instill ~1 cm ribbon into affected eye 09/28/19 24 Inactive acetaminophen 500 mg tablet RxNorm: 866868 (MAX APAP:4GM/24HR) Take 1 Tablet(s) Oral TID as needed for pain 09/24/19 24 Inactive carvedilol 25 mg tablet RxNorm: 717302 Take 1 Tablet(s) Oral QD 09/08/19 24 No Stop Date Active pregabalin 100 mg capsule RxNorm: 697480 Take 1 Capsule(s) Oral QAM every morning 09/07/19 24 024 Inactive rosuvastatin 40 mg tablet RxNorm: 139986 Take 1 Tablet(s) Oral QPM every evening 07/13/19 24 No Stop Date Active ezetimibe 10 mg tablet RxNorm: 117727 Take 1 Tablet(s) Oral QD 07/13/19 24 No Stop Date Active bisacodyl 10 mg rectal suppository RxNorm: 874112 Insert 1 Suppository Rectal QD as needed 07/13/19 24 No Stop Date Active polyethylene glycol 3350 17 gram/dose oral powder RxNorm: 212131 Take 17 Gram(s) Oral BID as needed mix in 4-8ox water 07/13/19 24 No Stop Date Active ketoconazole 2 % shampoo RxNorm: 455939 Apply 1 Application Topical UD as directed 07/13/19 24 No Stop Date Active Ozempic 1 mg/dose (4 mg/3 mL) subcutaneous pen injector RxNorm: 9585090 Inject 1 Milligram(s) Subcutaneous QW once a week 07/13/19 24 No Stop Date Active Guaifenesin AC 10 mg-100 mg/5 mL oral liquid RxNorm: 595798 Take 10 Milliliter(s) Oral Q4H every four hours as needed 07/13/19 24 No Stop Date Active ammonium lactate 12 % topical cream RxNorm: 606914 Apply 1 Application Topical BID 07/13/19 24 No Stop Date Active hydrocortisone 2.5 % topical cream RxNorm: 298115 Apply 1 Application Topical BID as needed 07/13/19 24 No Stop Date Active rosuvastatin 20 mg sprinkle capsule RxNorm: 3012097 Take 1 Capsule(s) Oral QD 07/13/19 24 No Stop Date Active Vascepa 1 gram capsule RxNorm: 2431488 Take 2 Capsule(s) Oral BID 07/13/19 24 No Stop Date Active venlafaxine ER 75 mg capsule,extended release 24 hr RxNorm: 011439 Take 3 Capsule(s) Oral QD 07/13/19 24 No Stop Date Active aripiprazole 15 mg tablet RxNorm: 355615 Take 1/2 Tablet(s) Oral QD 07/13/19 24 024 Inactive isosorbide mononitrate ER 60 mg tablet,extended release 24 hr RxNorm: 485117 Take 1 Tablet(s) Oral QD 07/13/19 24 024 Inactive Basaglar KwikPen U-100 Insulin 100 unit/mL (3 mL) subcutaneous RxNorm: 2733090 Inject 30U SubQ twice daily 07/07/19 24 024 Inactive Please dispense one month supply. Basaglar KwikPen U-100 Insulin 100 unit/mL (3 mL) subcutaneous RxNorm: 1181069 Inject 30U SubQ twice daily 07/07/19 24 024 Inactive Please dispense one month supply. pregabalin 150 mg capsule RxNorm: 155663 Take 1 Capsule(s) Oral QHS every night at bedtime 07/05/19 24 024 Inactive pregabalin 150 mg capsule RxNorm: 435926 Take 1 Capsule(s) Oral QHS every night at bedtime 07/05/19 24 024 Inactive polyethylene glycol 3350 17 gram/dose oral powder RxNorm: 297578 Take 1 Packet Oral QD as needed (1 packet = 17g) mix with 4-8oz of liquid 06/15/19 24 024 Inactive bisacodyl 10 mg rectal suppository RxNorm: 718883 Insert one suppository per rectum once daily as needed for constipation 06/15/19 24 024 Inactive bisacodyl 10 mg rectal suppository RxNorm: 369812 Insert one suppository per rectum once daily as needed for constipation 06/15/19 24 024 Inactive pregabalin 100 mg capsule RxNorm: 594271 Take 1 Capsule(s) Oral QAM every morning 04/27/20 23 024 Inactive Levemir FlexPen 100 unit/mL (3 mL) solution subcutaneous insulin pen RxNorm: 447448 Inject 30 Unit(s) Subcutaneous BID 04/27/20 23 024 Inactive rosuvastatin 40 mg tablet RxNorm: 001774 Take 1 Tablet(s) Oral QPM every evening 04/16/20 024 Inactive D/C rosuvastatin 20mg venlafaxine ER 75 mg capsule,extended release 24 hr RxNorm: 566745 Take 3 Capsule(s) Oral QD 04/14/20 023 Inactive pregabalin 100 mg capsule RxNorm: 881684 Take 1 Capsule(s) Oral QAM every morning [...] strip clotrimazole 1 % topical cream RxNorm: 817646 Take apply topically to abdominal folds twice daily for 14 days 03/12/20 024 Inactive Ozempic 1 mg/dose (4 mg/3 mL) subcutaneous pen injector RxNorm: 9266581 Inject 1 Milligram(s) Subcutaneous QW once a week 03/11/20 023 Inactive rosuvastatin 20 mg tablet RxNorm: 475670 Take 1 Tablet(s) Oral QD 02/26/20 23 023 Inactive d/c pravastatin 80mg Ozempic 1 mg/dose (4 mg/3 mL) subcutaneous pen injector RxNorm: 8120067 Inject 1 Milligram(s) Subcutaneous QW once a week 02/20/20 23 023 Inactive pregabalin 150 mg capsule RxNorm: 503572 Take 1 Capsule(s) Oral HS at bed time 02/19/20 23 023 Inactive pregabalin 100 mg capsule RxNorm: 118533 Take 1 Capsule(s) Oral QAM every morning 02/18/20 23 023 Inactive venlafaxine ER 75 mg capsule,extended release 24 hr RxNorm: 142862 Take 3 Capsule(s) Oral QD 02/04/20 23 023 Inactive FreeStyle Chema 2 Sensor kit RxNorm: use as directed 02/04/20 23 023 Inactive FreeStyle Chema 2 Sensor kit RxNorm: use as directed 02/04/20 23 024 Inactive fluconazole 150 mg tablet RxNorm: 830186 Take 1 Tablet(s) Oral on day 3 and on day 6 02/03/20 23 024 Inactive chlorthalidone 25 mg tablet RxNorm: 347683 Take 1 Tablet(s) Oral QAM every morning 02/03/20 No Stop Date Active venlafaxine ER 150 mg capsule,extended release 24 hr RxNorm: 208421 Take 1 Capsule(s) Oral QD 02/03/20 023 Inactive acetaminophen 500 mg tablet RxNorm: 030682 1 TABLET ORALLY 3 TIMES DAILY (MAX APAP:4GM/24HR) 12/15/19 23 023 Inactive clotrimazole 1 % topical cream RxNorm: 953532 apply 1g topically to top of feet and in between toes BID 12/09/19 23 023 Inactive potassium chloride ER 20 mEq tablet,extended release RxNorm: 767481 Take 1 Tablet(s) Oral BID 12/09/19 23 024 Inactive d/c 20mEq once daily (sent from hospital) nystatin 100,000 unit/gram topical powder RxNorm: 032471 APPLY TO AFFECTED AREAS TOPICALLY 2 TIMES DAILY 11/21/19 23 023 Inactive Nystop 100,000 unit/gram topical powder RxNorm: 170870 Apply to abd folds, under breasts and L side of groin Topical BID x 14 days, then BID PRN 11/20/19 23 023 Inactive dx: yeast dermatitis [place] Ultra Strength 4 %-30 %-10 % topical cream RxNorm: 478548 Apply 1 Gram(s) Topical QID PRN to feet and legs for neuropathic pain 11/11/19 23 024 Inactive clotrimazole 1 % topical cream RxNorm: 351591 Apply 1/2 Gram(s) Topical BID Apply to affected areas of groin, periarea, and abdominal topically 2 times daily 06/26/ 023 Inactive hydrocortisone 2.5 % topical cream RxNorm: 332050 Apply 1/2 Gram(s) Topical BID as needed 11/10/19 024 Inactive Levemir FlexPen 100 unit/mL (3 mL) solution subcutaneous insulin pen RxNorm: 621980 Inject 30 Unit(s) Subcutaneous BID 10/07/19 023 Inactive Humulin R U-500 (Concentrated) Insulin 500 unit/mL subcutaneous soln RxNorm: 267032 Inject 100 Unit(s) Subcutaneous TID 10/07/19 024 Inactive Ozempic 0.25 mg or 0.5 mg (2 mg/3 mL) subcutaneous pen injector RxNorm: 7728869 Inject 1/2 Milligram(s) Subcutaneous QW once a week 10/07/19 024 Inactive aripiprazole 15 mg tablet RxNorm: 075214 1/2 TAB (7.5MG) ORALLY DAILY (DX:MAJOR DEPRESSIVE DISORDER) 09/23/19 023 Inactive Accu-Chek Guide test strips RxNorm: Use 1 Test Strip QID 09/15/19 23 023 Inactive ok to substitute with any covered alternative test strip Lancets,Thin 28 gauge RxNorm: Use 1 as directed QID 09/15/19 23 023 Inactive torsemide 20 mg tablet RxNorm: 522691 Take 1 Tablet(s) Oral BID 09/09/19 024 Inactive d/c once daily dosing carvedilol 25 mg tablet RxNorm: 203340 Take 1 Tablet(s) Oral QD 08/25/19 23 024 Inactive pregabalin 150 mg capsule RxNorm: 222256 1 Capsule(s) Oral HS at bed time 08/18/19 023 Inactive pregabalin 100 mg capsule RxNorm: 726775 1 Capsule(s) Oral QAM every morning 08/18/19 023 Inactive carvedilol 25 mg tablet RxNorm: 420013 1 Tablet(s) Oral QD 07/28/19 23 023 Inactive lisinopril 20 mg tablet RxNorm: 343939 Give 1 Tablet(s) Oral QD 07/28/19 23 023 Inactive Lyrica 150 mg capsule RxNorm: 710043 Take 1 Capsule(s) Oral QHS every night at bedtime 07/19/19 23 023 Inactive d/c 100mg dose Diflucan 150 mg tablet RxNorm: 316091 Take 1 Tablet(s) Oral QD repeat on day 3 and 6 07/19/19 23 023 Inactive pregabalin 100 mg capsule RxNorm: 040669 Take 1 Capsule(s) Oral QAM every morning 07/19/19 23 023 Inactive gatifloxacin 0.5 % eye drops RxNorm: 948988 Instill 1 Drop(s) as directed TID Instill 1 drop in to affected eye(s) starting 1 day prior to surgery and continue until gone (do not exceed 4 weeks). 07/13/19 23 023 Inactive carvedilol 25 mg tablet RxNorm: 498356 2 Tablet(s) Oral BID 07/13/19 23 023 Inactive Humulin R Regular U-100 Insulin 100 unit/mL injection solution RxNorm: 816399 85 Unit(s) Injection TID 07/13/19 23 023 Inactive ketorolac 0.5 % eye drops RxNorm: 004653 Instill 1 Drop(s) as directed QID Instill 1 drop into affected eye(s) 4 times daily starting 1 day prior to surgery and continue until gone (do not exceed 4 weeks). 07/13/19 23 023 Inactive Diflucan 150 mg tablet RxNorm: 073928 Take 1 Tablet(s) Oral QD repeat on day 3 and 6 06/30/19 23 023 Inactive Accu-Chek Guide test strips RxNorm: Use 1 Test Strip QID Use 1 test strip to monitor blood glucose 4 times daily and as needed. Dx:E11.42. 06/23/19 23 023 Inactive ok to substitute with any covered alternative test strip dextromethorphan-gu aifenesin 10 mg-100 mg/5 mL oral liquid RxNorm: 017017 Take 10 Milliliter(s) Oral every 4 hours as needed for cough 06/19/19 023 Inactive dextromethorphan-gu aifenesin 10 mg-100 mg/5 mL oral liquid RxNorm: 767445 Take 10 Milliliter(s) Oral every 4 hours as needed for cough 06/19/19 023 Inactive Lyrica 150 mg capsule RxNorm: 721633 Take 1 Capsule(s) Oral QHS every night at bedtime 06/18/19 023 Inactive d/c 100mg dose aripiprazole 15 mg tablet RxNorm: 644609 05/18 TAB (7.5MG) ORALLY DAILY (DX:MAJOR DEPRESSIVE DISORDER) 06/05/19 023 Inactive pregabalin 100 mg capsule RxNorm: 054193 1 Capsule(s) Oral QAM every morning 06/02/19 023 Inactive Banophen 50 mg capsule RxNorm: 8214275 Take 1 Capsule(s) Oral Q6H every 6 hours as needed 05/19/19 23 No Stop Date Active Novolog Flexpen U-100 Insulin aspart 100 unit/mL (3 mL) subcutaneous RxNorm: 7830885 Inject 10 Unit(s) Subcutaneous QHS every night at bedtime with nighttime snack 04/08/20 022 Inactive Novolog Flexpen U-100 Insulin aspart 100 unit/mL (3 mL) subcutaneous RxNorm: 7276738 Inject 42 Unit(s) Subcutaneous TID in addition to sliding scale 04/08/20 022 Inactive d/c 36u albuterol sulfate HFA 90 mcg/actuation aerosol inhaler RxNorm: 0808187 Take 2 Puff(s) Inhalation Q4H every four hours as needed as needed for SOB, cough, or wheezing 04/07/20 030 Active Banophen 50 mg capsule RxNorm: 8953010 Take 1 Capsule(s) Oral Q6H every 6 hours as needed 04/06/20 023 Inactive diphenhydramine 50 mg tablet RxNorm: 6578457 Take 1 Tablet(s) Oral Q6H every 6 hours as needed 04/06/20 022 Inactive diphenhydramine 50 mg tablet RxNorm: 2396466 1 Tablet(s) Oral Q6H every 6 hours as needed 04/06/20 22 022 Inactive Abilify 15 mg tablet RxNorm: 234301 1/2 Tablet(s) Oral QD 03/10/20 22 023 Inactive Shingrix (PF) 50 mcg/0.5 mL intramuscular suspension, kit RxNorm: 2169658 Administer 1/2 Milliliter(s) Intramuscular QD one time shingrix step 2 ( step 1 given 11/04/21) WITH needle - Nursing please administer upon arrival and once administered post a bridge message with date of administration, food service sales representatives, expiration date, and lot# so we can update NDIC 02/18/20 22 022 Inactive dispense with needle Shingrix (PF) 50 mcg/0.5 mL intramuscular suspension, kit RxNorm: 9149956 Administer 1/2 Milliliter(s) Intramuscular QD one time shingrix step 2 ( step 1 given 11/04/21) WITH needle - Nursing please administer upon arrival and once administered post a bridge message with date of administration, food service sales representatives, expiration date, and lot# so we can update NDIC 02/18/20 22 022 Inactive dispense with needle polyethylene glycol 3350 17 gram/dose oral powder RxNorm: 997981 Take 17=1 capful Gram(s) Oral QD mix with 4-8oz of liquid 01/08/20 22 023 Inactive take this in addition to BID prn order Lyrica 100 mg capsule RxNorm: 257300 Take 1 Capsule(s) Oral QAM every morning 01/08/20 22 022 Inactive d/c 50mg dose acetaminophen 500 mg tablet RxNorm: 792157 Take 1 Tablet(s) Oral TID 01/08/20 22 022 Inactive d/c PRN order Lyrica 150 mg capsule RxNorm: 934267 Take 1 Capsule(s) Oral QHS every night at bedtime 01/08/20 22 023 Inactive d/c 100mg dose Abilify 5 mg tablet RxNorm: 771091 Take 1 Tablet(s) Oral QD take 1 tab po QD #30 refill 5 dx: MDD 12/12/19 022 Inactive Abilify 5 mg tablet RxNorm: 459225 Take 1 Tablet(s) Oral QD take 1 tab po QD #30 refill 5 dx: MDD 12/12/19 22 022 Inactive Novolog Flexpen U-100 Insulin aspart 100 unit/mL (3 mL) subcutaneous RxNorm: 3328633 Inject 42 Unit(s) Subcutaneous TID in addition to sliding scale 12/10/19 22 022 Inactive d/c 36u chlorthalidone 25 mg tablet RxNorm: 418544 Take 1 Tablet(s) Oral QAM every morning 12/10/19 22 023 Inactive pregabalin 50 mg capsule RxNorm: 439376 Take 1 Capsule(s) Oral QAM every morning 11/12/19 022 Inactive tetanus-diphtheria toxoids-Td 2 Lf unit-2 Lf unit/0.5 mL IM suspension RxNorm: 139 Take 0.5 Miscellaneous Intramuscular 11/12/19 022 Inactive need tdap - nursing to administer upon arrival pregabalin 50 mg capsule RxNorm: 058364 Take 1 Capsule(s) Oral QAM every morning 10/16/19 22 022 Inactive pregabalin 50 mg capsule RxNorm: 956742 Take 1 Capsule(s) Oral QAM every morning 10/16/19 22 022 Inactive pregabalin 50 mg capsule RxNorm: 376824 1 Capsule(s) Oral QAM every morning 10/15/19 22 022 Inactive Shingrix (PF) 50 mcg/0.5 mL intramuscular suspension, kit RxNorm: 0873203 Administer 1/2 Milliliter(s) Intramuscular one time Nursing please administer upon arrival and once administered post a bridge message with date of administration, food service sales representatives, expiration date, and lot# so we can update MIIC. 10/09/19 22 022 Inactive shingrix step 1 Shingrix (PF) 50 mcg/0.5 mL intramuscular suspension, kit RxNorm: 7933153 Administer 1/2 Milliliter(s) Intramuscular one time Nursing please administer upon arrival and once administered post a bridge message with date of administration, food service sales representatives, expiration date, and lot# so we can update MIIC. 10/09/19 22 Inactive shingrix step 1 cholecalciferol (vitamin D3) 1,250 mcg (50,000 unit) capsule RxNorm: 390420 Take 1 Capsule(s) Oral QW once a [...] aspart 100 unit/mL (3 mL) subcutaneous RxNorm: 7249642 Inject 10 Unit(s) Subcutaneous QHS every night at bedtime with nighttime snack 10/08/19 22 Inactive Shingrix (PF) 50 mcg/0.5 mL intramuscular suspension, kit RxNorm: 7767375 ADMINISTER 2-DOSE SERIES PER CDC GUIDELINES 10/08/19 22 Active Shingrix (PF) 50 mcg/0.5 mL intramuscular suspension, kit RxNorm: 1124122 ADMINISTER 2-DOSE SERIES PER CDC GUIDELINES 10/08/19 22 Inactive Novolog Flexpen U-100 Insulin aspart 100 unit/mL (3 mL) subcutaneous RxNorm: 6104495 Inject 36 Unit(s) Subcutaneous TID in addition to sliding scale 10/08/19 22 Inactive Novofine Autocover 30 gauge x 1/3 needle RxNorm: Use 1 Miscellaneous UD as directed Use 1 needle as directed to administer insulin 5 times a day Dx:E11.42. 10/03/19 22 Inactive ok to substitute with any covered alternative pen needle benzoyl peroxide 10 % topical cleanser RxNorm: 619383 Apply 1 Application Topical QD apply to face, wash rinse and dry once daily (may change to QOD if drying) 08/19/19 22 022 Inactive (%covered by insurance) #60ml refill 11 dx: acne benzoyl peroxide 10 % topical cleanser RxNorm: 409655 Apply 1 Application Topical QD apply to face, wash rinse and dry once daily (may change to QOD if drying) 08/19/19 22 022 Inactive (%covered by insurance) #60ml refill 11 dx: acne benzoyl peroxide 10 % topical cleanser RxNorm: 530824 Apply 1 Application Topical QD apply to face, wash rinse and dry once daily (may change to QOD if drying) 08/19/19 22 022 Inactive (%covered by insurance) #60ml refill 11 dx: acne Lyrica 50 mg capsule RxNorm: 937186 Take 1 Capsule(s) Oral QAM every morning Take 1 capsule by mouth once daily 08/19/19 022 Inactive benzoyl peroxide 10 % topical cleanser RxNorm: 840728 Apply 1 Application Topical QD apply to face, wash rinse and dry once daily (may change to QOD if drying) 08/19/19 22 022 Inactive (%covered by insurance) #60ml refill 11 dx: acne Lyrica 100 mg capsule RxNorm: 303881 Take 1 Capsule(s) Oral QHS every night at bedtime Take 1 capsule by mouth once daily at bedtime 08/19/19 22 022 Inactive Lyrica 100 mg capsule RxNorm: 754952 Take 1 Capsule(s) Oral QHS every night at bedtime Take 1 capsule by mouth once daily at bedtime 08/16/19 022 Inactive Lyrica 50 mg capsule RxNorm: 749511 Take 1 Capsule(s) Oral QAM every morning Take 1 capsule by mouth once daily 08/16/19 Inactive Levemir FlexTouch U-100 Insulin 100 unit/mL (3 mL) subcutaneous pen RxNorm: 304458 Inject 86 Unit(s) Subcutaneous BID 08/05/19 22 022 Inactive d/c 83units BID Lyrica 100 mg capsule RxNorm: 256368 Take 1 Capsule(s) Oral QHS every night at bedtime Take 1 capsule by mouth once daily at bedtime 07/14/19 22 Inactive Lyrica 50 mg capsule RxNorm: 137418 Take 1 Capsule(s) Oral QAM every morning Take 1 capsule by mouth once daily 07/14/19 22 Inactive Levemir FlexTouch U-100 Insulin 100 unit/mL (3 mL) subcutaneous pen RxNorm: 274676 Inject 83 Unit(s) Subcutaneous BID 07/08/19 22 [...] test strip hydralazine 50 mg tablet RxNorm: 703646 Take 1 Tablet(s) Oral QID 05/05/20 022 Inactive venlafaxine ER 225 mg tablet,extended release 24 hr RxNorm: 106907 Take 1 Tablet(s) Oral QD 05/05/20 21 021 Inactive venlafaxine ER 225 mg tablet,extended release 24 hr RxNorm: 046655 Take 1 Tablet(s) Oral QD 05/05/20 022 Inactive isosorbide mononitrate ER 30 mg tablet,extended release 24 hr RxNorm: 983135 Take 1 Tablet(s) Oral QD 05/05/20 024 Inactive hydralazine 50 mg tablet RxNorm: 851681 Take 1 Tablet(s) Oral QID 05/05/20 21 Inactive aspirin 81 mg tablet,delayed release RxNorm: 921412 Take 1 Tablet(s) Oral QD 03/31/20 022 Inactive Vitamin D2 1,250 mcg (50,000 unit) capsule RxNorm: 9014864 Take 1 Capsule(s) Oral QW once a week x 12 weeks 03/31/20 022 Inactive Vitamin D2 1,250 mcg (50,000 unit) capsule RxNorm: 2588677 Take 1 Capsule(s) Oral QW once a week 03/31/20 021 Inactive Zetia 10 mg tablet RxNorm: 101981 Take 1 Tablet(s) Oral QD 03/31/20 024 Inactive Zetia 10 mg tablet RxNorm: 586480 Take 1 Tablet(s) Oral QD 03/31/20 021 Inactive hydralazine 25 mg tablet RxNorm: 299699 Take 1 Tablet(s) Oral QID 03/31/20 21 021 Inactive hydralazine 25 mg tablet RxNorm: 537514 Take 1 Tablet(s) Oral QID 03/31/20 021 Inactive hydralazine 10 mg tablet RxNorm: 078065 Take 1 Tablet(s) Oral QID 03/03/20 021 Inactive cephalexin 500 mg tablet RxNorm: 688859 Take 1 Tablet(s) Oral QID 02/27/20 021 Inactive cephalexin 500 mg tablet RxNorm: 541108 Take 1 Tablet(s) Oral QID 02/27/20 021 Inactive lisinopril 40 mg tablet RxNorm: 192013 Take 1 Tablet(s) Oral QD 02/11/20 023 Inactive Eliquis 5 mg tablet RxNorm: 7548362 Take 1 Tablet(s) Oral BID 01/05/20 21 022 Inactive Eliquis 5 mg tablet RxNorm: 7893995 Take 2 Tablet(s) Oral QD 01/01/20 21 021 Inactive Lyrica 50 mg capsule RxNorm: 738523 Take 1 Capsule(s) Oral QAM every morning 12/24/19 021 Inactive Lyrica 100 mg capsule RxNorm: 525546 Take 1 Capsule(s) Oral QHS every night at bedtime 12/24/19 021 Inactive clotrimazole 1 % topical cream RxNorm: 043643 Apply to right foot and toes Topical BID 12/04/19 21 023 Inactive metoprolol succinate ER 200 mg tablet,extended release 24 hr RxNorm: 850684 Take 1 Tablet(s) Oral QD 12/04/19 023 Inactive ciprofloxacin 500 mg tablet RxNorm: 526144 Take 1 Tablet(s) Oral QD 11/30/19 021 Inactive DX ofloxacin otic drops Accu-Chek Guide test strips RxNorm: USE 1 TO CHECK GLUCOSE 4 TIMES DAILY AND NEEDED 11/15/19 21 023 Inactive Blood Glucose Test strips RxNorm: Use 1 Test Strip QID at PRN 11/05/19 21 023 Inactive E11.42 lisinopril 30 mg tablet RxNorm: 837475 Take 1 Tablet(s) Oral QD 10/30/19 21 021 Inactive lisinopril 20 mg tablet RxNorm: 757998 Take 1 Tablet(s) Oral QD 10/23/19 021 Inactive lisinopril 20 mg tablet RxNorm: 069542 Take 1 Tablet(s) Oral QD 10/23/19 21 021 Inactive lisinopril 10 mg tablet RxNorm: 633200 Take 1 Tablet(s) Oral QD 10/02/19 21 021 Inactive icosapent ethyl 1 gram capsule RxNorm: 7867323 Take 2 Capsule(s) (2 gm) Oral BID with meals 09/12/19 21 024 Inactive Okay to dispense one 2gm tab if you have that available. icosapent ethyl 1 gram capsule RxNorm: 7973313 Take 2 Capsule(s) Oral BID 09/12/19 21 021 Inactive Okay to dispense one 2gm tab if you have that available. amlodipine 10 mg tablet RxNorm: 349358 Take 1 Tablet(s) Oral QD 09/04/19 21 022 Inactive aspirin 81 mg tablet,delayed release RxNorm: 092797 Take 1 Tablet(s) Oral QD 09/04/19 021 Inactive Levemir FlexTouch U-100 Insulin 100 unit/mL (3 mL) subcutaneous pen RxNorm: 549283 Inject 150 Unit(s) Subcutaneous BID 09/04/19 21 022 Inactive venlafaxine ER 150 mg tablet,extended release 24 hr RxNorm: 032203 Take 1 Tablet(s) Oral QD 09/04/19 21 021 Inactive clotrimazole-betame thasone 1 %-0.05 % topical cream RxNorm: 118631 Apply to rash on red area on left abdomen/chest Topical BID 08/10/19 21 021 Inactive amlodipine 5 mg tablet RxNorm: 562700 Take 1 Tablet(s) Oral QD 07/31/19 21 021 Inactive cephalexin 500 mg tablet RxNorm: 618508 Take 1 Tablet(s) Oral BID BID - Twice Daily 07/31/19 21 021 Inactive Start 08/01/20 pantoprazole 40 mg tablet,delayed release RxNorm: 563713 Take 1 Tablet(s) Oral QAM every morning 07/08/19 21 022 Inactive senna 8.6 mg tablet RxNorm: 892151 Take 1 Tablet(s) Oral QD 07/08/19 21 022 Inactive carbamazepine 200 mg tablet RxNorm: 177207 Take 1 Tablet(s) Oral BID 07/08/19 21 022 Inactive clopidogrel 75 mg tablet RxNorm: 738882 Take 1 Tablet(s) Oral QD 07/08/19 21 021 Inactive Blood Glucose Test strips RxNorm: Use 1 Test Strip QID at PRN 07/08/19 21 Inactive E11.42 Novolog Flexpen U-100 Insulin aspart 100 unit/mL (3 mL) subcutaneous RxNorm: 4267394 Administer per sliding scale Milliliter(s) Subcutaneous TID 151-200: 10 u; 201-250: 20 u; 251-300: 30 u; 301-350: 40 u; 351-400: 50 u. 07/08/19 21 022 Inactive lisinopril 5 mg tablet RxNorm: 744267 Take 1 Tablet(s) Oral QD 07/08/19 021 Inactive Novolog Flexpen U-100 Insulin aspart 100 unit/mL (3 mL) subcutaneous RxNorm: 7000577 Inject 85 Unit(s) Subcutaneous TID 07/08/19 022 Inactive pravastatin 80 mg tablet RxNorm: 613974 Take 1 Tablet(s) Oral QHS every night at bedtime 07/08/19 21 023 Inactive clotrimazole 1 % topical cream RxNorm: 086574 Apply to bilateral groin areas Topical BID 07/08/19 21 022 Inactive metoprolol succinate ER 200 mg tablet,extended release 24 hr RxNorm: 414718 Take 1 Tablet(s) Oral QD 07/08/19 21 021 Inactive Vitamin D3 25 mcg (1,000 unit) tablet RxNorm: 532838 Take 1 Tablet(s) Oral QD 07/08/19 21 021 Inactive isosorbide dinitrate 30 mg tablet RxNorm: 818155 Take 1 Tablet(s) Oral QD 07/08/19 21 021 Inactive Levemir FlexTouch U-100 Insulin 100 unit/mL (3 mL) subcutaneous pen RxNorm: 297218 Inject 140 Unit(s) Subcutaneous BID 07/08/19 21 021 Inactive torsemide 20 mg tablet RxNorm: 679881 Take 1 Tablet(s) Oral QD 07/08/19 21 023 Inactive venlafaxine 75 mg tablet RxNorm: 042366 Take 1 Tablet(s) Oral QD 07/08/19 21 021 Inactive acetaminophen 500 mg tablet RxNorm: 984821 Take 1 Tablet(s) Oral TID as needed for headache 06/18/19 21 021 Inactive acetaminophen 500 mg tablet RxNorm: Take 1 Tablet(s) Oral TID as needed for headache 06/18/19 21 021 Inactive Lyrica 100 mg capsule RxNorm: 602998 Take 1 Capsule(s) Oral QHS every night at bedtime 06/11/19 21 021 Inactive Lyrica 50 mg capsule RxNorm: 322374 Take 1 Capsule(s) Oral QAM every morning 06/10/19 21 021 Inactive hydrocortisone 2.5 % topical cream RxNorm: 290688 Apply to bilateral groin creases Topical BID 05/15/20 20 021 Inactive clotrimazole 1 % topical cream RxNorm: 946619 Apply to bilateral groin areas Topical BID 05/15/20 20 021 Inactive Lyrica 50 mg capsule RxNorm: 985033 Take 1 Capsule(s) Oral QAM every morning 05/14/20 20 020 Inactive Lyrica 100 mg capsule RxNorm: 560323 Take 1 Capsule(s) Oral QHS every night [...] Inactive Nystop 100,000 unit/gram topical powder RxNorm: 413040 Apply to abd folds, under breasts and L side of groin Topical BID x 14 days, then BID PRN 04/08/20 20 Inactive dx: yeast dermatitis Lyrica 100 mg capsule RxNorm: 937711 Take 1 Capsule(s) Oral QHS every night at bedtime 03/13/20 20 Inactive Lyrica 50 mg capsule RxNorm: 688861 Take 1 Capsule(s) Oral QAM every morning 03/13/20 20 Inactive ketoconazole 2 % shampoo RxNorm: 868974 Apply Topical two times a week with showers 03/11/20 20 Inactive cholecalciferol (vitamin D3) 50 mcg (2,000 unit) tablet RxNorm: 549917 Take 1 Tablet(s) Oral QD 03/11/20 20 021 Inactive Zetia 10 mg tablet RxNorm: 873509 Take 1 Tablet(s) Oral QD 03/07/20 20 021 Inactive Zetia 10 mg tablet RxNorm: 584935 Take 1 Tablet(s) Oral QD 03/07/20 20 Inactive Lyrica 50 mg capsule RxNorm: 453011 Take 1 Capsule(s) Oral QAM every morning 02/15/20 20 Inactive Lyrica 100 mg capsule RxNorm: 052697 Take 1 Capsule(s) Oral QHS every night at bedtime 02/15/20 20 Inactive Lyrica 100 mg capsule RxNorm: 983830 Take 1 Capsule(s) Oral QHS every night at bedtime 02/15/20 20 Inactive Lyrica 50 mg capsule RxNorm: 529802 Take 1 Capsule(s) Oral QAM every morning 02/15/20 20 10/01/2 020 Inactive metoprolol succinate ER 200 mg tablet,extended release 24 hr RxNorm: 520677 Take 1 Tablet(s) Oral QD 08/11 Activeloperamide 2 mg capsuleRxNorm: 002489Pfph 1 Capsule(s) Oral QID as needed 06/12/2021ctivehydralazine 50 mg tabletRxNorm: 323725Ttaw 1 Tablet(s) Oral QID 08/11/2022ctivevenlafaxine ER 75 mg capsule,extended release 24 hrRxNorm: 203424Ftuy 3 Capsule(s) Oral QD/Inactivepolyethylene glycol 3350 17 gram/dose oral powderRxNorm: 192235Aepj 17=1 capful Gram(s) Oral BID as needed mix with 4-8oz of dcslom01/Inactiveicosapent ethyl 1 gram capsuleRxNorm: 2443621Rjrm 2 Capsule(s) (2 gm) Oral BID with meals /InactiveOkay to dispense one 2gm tab if you have that available.Levemir FlexTouch U-100 Insulin 100 unit/mL (3 mL) subcutaneous pen RxNorm: 968360Xebikh 80 Unit(s) Subcutaneous BID/Inactive Novolog Flexpen U-100 Insulin aspart 100 unit/mL (3 mL) subcutaneousRxNorm: 7456606Gmjqrn 30 Unit(s) Subcutaneous TID with meals/Inactive Medication [...] [facility] WPtel: [phone] , [address] [id number] USReferralRecords [id number]/08/2023Referral: [facility] WPtel: [address] [id number]/12/2022Referral: General CardiologyReferralCompleted 1Referral: General PsychologistReferralClosedReferral: General PsychiatristReferralPatient/Family [...] [facility]. Sister Jyotsna involved in his care cell# [phone] Guardian: Don (tapan met in person 09/01/21), [...] note from 11.08.2023 at [facility] (follow up 6 months)Colon & Rectal Surgery visit scheduled for 03/08/24 with Matilde Pérez PA-C. 02/08/2024
--- OUTSIDE RECORDS SUMMARY | 2024-03-03 18:00 | XMS_ITS | CCD ---
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 Chief Medical Physicist Name Role Phone Arpit [facility] Primary Care Provider Leona vailable Swisher [employer], [facility] U navailable Summary Purpose DataExchange Insurance Providers Payer name Policy type / Coverage type Covered green party ID Effective Begin Date Effective End Date [place] Part B [id number] Unknown Unknown [place] Part B [id number] Unknown Unknown Family history Sister Brittany Suggs Diagnosis Age At Onset No Family Disease Entered N/A Runs in the family Diagnosis Age At Onset No Known Diseases N/A Sister Blanka Mcduffie Diagnosis Age At Onset No Family Disease Entered N/A Social History Social History Element Codes Description Effec tive Dates Tobacco history SNOMED CT: 419659536 Never smoker 01/16 Sexually Active? Unknown No [...] Single 10/07/2021 Living arrangements Unknown Retirement 09/03/[address]: 559596259 No Alcohol Consum ption 09/02/2020 Allergies, Adverse Reactions, Alerts Substance Reaction Codes Entered Date Inactivated Date Status * NO KNOWN FOOD ALLERGIES Yhspszl2007/13/2023No Inactive DateActiveLISINOPRILRxNorm: 1492309No Inactive DateActiveMetformin BHnCkeeefi68/28/2020No Inactive DateActive* NO KNOWN ENVIRONMENTAL [id number]/27/2024No Inactive DateActive Problems Condition Codes Effective Dates [...] E55.9 ICD-9: 268.909/ctiveCallus of heelICD-10: L84 ICD-9: 42639/esolvedGout due to renal impairmentICD-10: M10.30 ICD-9: 274.1005/esolvedHyperhidrosis of palmsICD-10: L74.512 ICD-9: 705.2105esolvedHyperlipidemia, unspecifiedICD-10: E78.5 ICD-9: 272.405/esolvedOther mcc (current) drug therapyICD-10: Z79.899 ICD-9: V58.6905/esolvedPain of [...] tagICD-10: L91.8 ICD-9: 701.904/esolvedCoronary artery disease involving [place] coronary artery of [place] heart, angina presence unspecifiedICD-10: I25.10 ICD-9: 414.0102/ctiveInappropriate sexual behaviorICD-10: Z72.89 ICD-9: 312.8910/ctivePre-op evaluationICD-10: Z01.818 ICD-9: V72.8403/ctiveSecondary hypertensionICD-10: I15.9 ICD-9: 405.9903/ctiveDepressionICD-10: F32.9 ICD-9: 85125/esolvedDVT (deep venous thrombosis)ICD-10: I82.409 ICD-9: 453.4009/esolvedEncounter for immunizationICD-10: Z23 ICD-9: V03.8909/2ResolvedLong term (current) use of insulinICD-10: Z79.4 2ResolvedMuscular painICD-10: M79.10 ICD-9: 729.109esolvedHypertension associated with diabetesICD-10: E11.59 ICD-9: 250.8008/2ResolvedContact with and (suspected) exposure to covid-19 ICD-10: Z20.822 ICD-9: V01.7908/1ResolvedOther infective acute otitis externa of left ear ICD-10: H60.392 ICD-9: 380.1008/esolvedScrotal skin lesionICD-10: N50.9 ICD-9: 608.908/esolvedAnemia due to stage 3b chronic kidney diseaseICD- 10: N18.32 ICD-9: 285.21051ResolvedChronic kidney disease, stage 3 unspecifiedICD- 10: N18.3004/esolvedContact with and (suspected) exposure to other viral communicable diseasesICD-10: Z20.828 ICD-9: V01.79024498VehpqlldSswyxpdvFpqddiq61/28/2020ActiveDiabetes mellitus Type 2Myyhhpu93/28/2020ActiveAnemia in chronic kidney diseaseICD-10: D63.1 02/12/2020ResolvedHyperlipidemia, unspecifiedICD-10: E78.Resolved Medications Medication Codes Instructions Start Date Stop Date Status Fill Instructions Accu-Chek Guide Glucose Meter RxNorm: Use 1 Miscellaneous UD as directed Use glucose meter to monitor blood glucose 4 times daily and as needed. Dx:E11.42 03/04/20 024 Inactive Accu-Chek Guide test strips RxNorm: Use 1 Test Strip QID And PRN-- also dispense Soft Touch Lancets (QID and PRN) to be use with new Accu Quinlan meter 03/04/20 024 Active ok to substitute with any covered alternative test strip nystatin 100,000 unit/gram topical powder RxNorm: 827654 Apply 1 Application Topical BID as needed abdominal/breast /groin folds 03/02/20 24 Active FreeStyle Chema 2 Sensor kit RxNorm: Use UD as directed 03/02/20 24 Active Lancets,Thin 28 gauge RxNorm: Use 1 as directed QID lancet 03/02/20 24 Active Pen Needle 30 gauge x 5/16 RxNorm: Pen(s) Use 1 needle as directed TID 03/02/20 24 025 Active FreeStyle Chema 2 Sensor kit RxNorm: Use UD as directed 03/02/20 Inactive Pen Needle 30 gauge x 5/16 RxNorm: Pen(s) Use 1 needle as directed TID 03/02/20 24 Inactive Accu-Chek Guide test strips RxNorm: Use 1 Test Strip QID 03/02/20 24 024 Inactive ok to substitute with any covered alternative test strip Humulin R U-500 (Concentrated) Insulin 500 unit/mL subcutaneous soln RxNorm: 686860 Inject 100 Unit(s) Subcutaneous TID 02/17/20 24 025 Active Basaglar KwikPen U-100 Insulin 100 unit/mL (3 mL) subcutaneous RxNorm: 1461858 Inject 30 Unit(s) Subcutaneous BID 02/10/20 24 024 Active Please dispense one month supply. Humulin R U-500 (Concentrated) Insulin 500 unit/mL subcutaneous soln RxNorm: 382408 Inject 100 Unit(s) Subcutaneous TID 02/10/20 24 024 Inactive pregabalin 100 mg capsule RxNorm: 182745 Take 1 Capsule(s) Oral QAM every morning 02/07/20 24 024 Active isosorbide mononitrate ER 60 mg tablet,extended release 24 hr RxNorm: 955110 Take 1 Tablet(s) Oral QD 02/01/20 24 025 Active aripiprazole 15 mg tablet RxNorm: 396936 Take 1/2 Tablet(s) Oral QD 02/01/20 24 025 Active torsemide 20 mg tablet RxNorm: 108741 1 TAB ORALLY DAILY (DX: EDEMA) 01/27/20 No Stop Date Active potassium chloride ER 20 mEq tablet,extended release(part/cryst) RxNorm: 5698668 2 TABS (40MEQ) ORALLY TWICE DAILY (DX: HYPOKALEMIA) 01/27/20 No Stop Date Active cephalexin 500 mg capsule RxNorm: 410639 Take 1 Capsule(s) Oral QID 12/17/19 24 024 Inactive cephalexin 500 mg capsule RxNorm: 194724 Take 1 Capsule(s) Oral QID 12/17/19 24 024 Inactive acetaminophen 500 mg tablet RxNorm: 680755 (MAX APAP:4GM/24HR) Take 1 Tablet(s) Oral TID as needed for pain 12/10/19 24 Active torsemide 20 mg tablet RxNorm: 437617 Take 1 Tablet(s) Oral QD 10/26/19 24 024 Inactive potassium chloride ER 20 mEq tablet,extended release RxNorm: 360782 Take 2 Tablet(s) Oral BID 10/26/19 24 Active torsemide 20 mg tablet RxNorm: 883430 Take 1 Tablet(s) Oral QD 10/26/19 24 024 Inactive potassium chloride ER 20 mEq tablet,extended release RxNorm: 967497 Take 2 Tablet(s) Oral BID 10/26/19 24 024 Inactive Artificial Tears (PF) 0.1 %-0.3 % drops in a dropperette RxNorm: 088035 Apply 1-2 Drop(s) Both eyes BID as needed 09/28/19 24 025 Active erythromycin 5 mg/gram (0.5 %) eye ointment RxNorm: 181871 Apply 1 Application Both eyes QHS every night at bedtime Instill ~1 cm ribbon into affected eye 09/28/19 24 024 Inactive Artificial Tears (PF) 0.1 %-0.3 % drops in a dropperette RxNorm: 364142 Apply 1-2 Drop(s) Both eyes BID as needed 09/28/19 24 Inactive erythromycin 5 mg/gram (0.5 %) eye ointment RxNorm: 795882 Apply 1 Application Both eyes QHS every night at bedtime Instill ~1 cm ribbon into affected eye 09/28/19 24 Inactive acetaminophen 500 mg tablet RxNorm: 550128 (MAX APAP:4GM/24HR) Take 1 Tablet(s) Oral TID as needed for pain 09/24/19 24 Inactive carvedilol 25 mg tablet RxNorm: 817727 Take 1 Tablet(s) Oral QD 09/08/19 24 No Stop Date Active pregabalin 100 mg capsule RxNorm: 030340 Take 1 Capsule(s) Oral QAM every morning 09/07/19 24 Inactive rosuvastatin 40 mg tablet RxNorm: 341622 Take 1 Tablet(s) Oral QPM every evening 07/13/19 24 No Stop Date Active ezetimibe 10 mg tablet RxNorm: 950374 Take 1 Tablet(s) Oral QD 07/13/19 24 No Stop Date Active bisacodyl 10 mg rectal suppository RxNorm: 505808 Insert 1 Suppository Rectal QD as needed 07/13/19 24 No Stop Date Active polyethylene glycol 3350 17 gram/dose oral powder RxNorm: 878713 Take 17 Gram(s) Oral BID as needed mix in 4-8ox water 07/13/19 24 No Stop Date Active ketoconazole 2 % shampoo RxNorm: 031769 Apply 1 Application Topical UD as directed 07/13/19 24 No Stop Date Active Ozempic 1 mg/dose (4 mg/3 mL) subcutaneous pen injector RxNorm: 3628828 Inject 1 Milligram(s) Subcutaneous QW once a week 07/13/19 24 No Stop Date Active Guaifenesin AC 10 mg-100 mg/5 mL oral liquid RxNorm: 523592 Take 10 Milliliter(s) Oral Q4H every four hours as needed 07/13/19 24 No Stop Date Active ammonium lactate 12 % topical cream RxNorm: 593797 Apply 1 Application Topical BID 07/13/19 24 No Stop Date Active hydrocortisone 2.5 % topical cream RxNorm: 955374 Apply 1 Application Topical BID as needed 07/13/19 24 No Stop Date Active rosuvastatin 20 mg sprinkle capsule RxNorm: 2972848 Take 1 Capsule(s) Oral QD 07/13/19 24 No Stop Date Active Vascepa 1 gram capsule RxNorm: 5102182 Take 2 Capsule(s) Oral BID 07/13/19 24 No Stop Date Active venlafaxine ER 75 mg capsule,extended release 24 hr RxNorm: 993569 Take 3 Capsule(s) Oral QD 07/13/19 24 No Stop Date Active aripiprazole 15 mg tablet RxNorm: 730631 Take 1/2 Tablet(s) Oral QD 07/13/19 24 024 Inactive isosorbide mononitrate ER 60 mg tablet,extended release 24 hr RxNorm: 745279 Take 1 Tablet(s) Oral QD 07/13/19 24 024 Inactive Basaglar KwikPen U-100 Insulin 100 unit/mL (3 mL) subcutaneous RxNorm: 8398823 Inject 30U SubQ twice daily 07/07/19 24 024 Inactive Please dispense one month supply. Basaglar KwikPen U-100 Insulin 100 unit/mL (3 mL) subcutaneous RxNorm: 9130718 Inject 30U SubQ twice daily 07/07/19 24 024 Inactive Please dispense one month supply. pregabalin 150 mg capsule RxNorm: 574199 Take 1 Capsule(s) Oral QHS every night at bedtime 07/05/19 24 024 Inactive pregabalin 150 mg capsule RxNorm: 173797 Take 1 Capsule(s) Oral QHS every night at bedtime 07/05/19 24 024 Inactive polyethylene glycol 3350 17 gram/dose oral powder RxNorm: 942542 Take 1 Packet Oral QD as needed (1 packet = 17g) mix with 4-8oz of liquid 06/15/19 24 024 Inactive bisacodyl 10 mg rectal suppository RxNorm: 061491 Insert one suppository per rectum once daily as needed for constipation 06/15/19 24 024 Inactive bisacodyl 10 mg rectal suppository RxNorm: 687781 Insert one suppository per rectum once daily as needed for constipation 06/15/19 024 Inactive pregabalin 100 mg capsule RxNorm: 235585 Take 1 Capsule(s) Oral QAM every morning 04/27/20 024 Inactive Levemir FlexPen 100 unit/mL (3 mL) solution subcutaneous insulin pen RxNorm: 624974 Inject 30 Unit(s) Subcutaneous BID 04/27/20 024 Inactive rosuvastatin 40 mg tablet RxNorm: 992958 Take 1 Tablet(s) Oral QPM every evening 04/16/20 024 Inactive D/C rosuvastatin 20mg venlafaxine ER 75 mg capsule,extended release 24 hr RxNorm: 444540 Take 3 Capsule(s) Oral QD 04/14/20 023 Inactive pregabalin 100 mg capsule RxNorm: 678414 Take 1 Capsule(s) Oral QAM every morning [...] strip clotrimazole 1 % topical cream RxNorm: 048776 Take apply topically to abdominal folds twice daily for 14 days 03/12/20 024 Inactive Ozempic 1 mg/dose (4 mg/3 mL) subcutaneous pen injector RxNorm: 6709382 Inject 1 Milligram(s) Subcutaneous QW once a week 03/11/20 023 Inactive rosuvastatin 20 mg tablet RxNorm: 466365 Take 1 Tablet(s) Oral QD 02/26/20 023 Inactive d/c pravastatin 80mg Ozempic 1 mg/dose (4 mg/3 mL) subcutaneous pen injector RxNorm: 8243897 Inject 1 Milligram(s) Subcutaneous QW once a week 02/20/20 23 023 Inactive pregabalin 150 mg capsule RxNorm: 088278 Take 1 Capsule(s) Oral HS at bed time 02/19/20 023 Inactive pregabalin 100 mg capsule RxNorm: 121759 Take 1 Capsule(s) Oral QAM every morning 02/18/20 023 Inactive venlafaxine ER 75 mg capsule,extended release 24 hr RxNorm: 890308 Take 3 Capsule(s) Oral QD 02/04/20 023 Inactive FreeStyle Chema 2 Sensor kit RxNorm: use as directed 02/04/20 23 023 Inactive FreeStyle Chema 2 Sensor kit RxNorm: use as directed 02/04/20 024 Inactive fluconazole 150 mg tablet RxNorm: 238049 Take 1 Tablet(s) Oral on day 3 and on day 6 02/03/20 024 Inactive chlorthalidone 25 mg tablet RxNorm: 508085 Take 1 Tablet(s) Oral QAM every morning 02/03/20 23 No Stop Date Active venlafaxine ER 150 mg capsule,extended release 24 hr RxNorm: 237449 Take 1 Capsule(s) Oral QD 02/03/20 023 Inactive acetaminophen 500 mg tablet RxNorm: 285125 1 TABLET ORALLY 3 TIMES DAILY (MAX APAP:4GM/24HR) 12/15/19 23 023 Inactive clotrimazole 1 % topical cream RxNorm: 834823 apply 1g topically to top of feet and in between toes BID 12/09/19 23 023 Inactive potassium chloride ER 20 mEq tablet,extended release RxNorm: 216287 Take 1 Tablet(s) Oral BID 12/09/19 23 024 Inactive d/c 20mEq once daily (sent from hospital) nystatin 100,000 unit/gram topical powder RxNorm: 890696 APPLY TO AFFECTED AREAS TOPICALLY 2 TIMES DAILY 11/21/19 23 023 Inactive Nystop 100,000 unit/gram topical powder RxNorm: 263506 Apply to abd folds, under breasts and L side of groin Topical BID x 14 days, then BID PRN 11/20/19 023 Inactive dx: yeast dermatitis [place] Ultra Strength 4 %-30 %-10 % topical cream RxNorm: 338040 Apply 1 Gram(s) Topical QID PRN to feet and legs for neuropathic pain 11/11/19 024 Inactive clotrimazole 1 % topical cream RxNorm: 091999 Apply 1/2 Gram(s) Topical BID Apply to affected areas of groin, periarea, and abdominal topically 2 times daily 11/10/19 023 Inactive hydrocortisone 2.5 % topical cream RxNorm: 105342 Apply 1/2 Gram(s) Topical BID as needed 11/10/19 024 Inactive Levemir FlexPen 100 unit/mL (3 mL) solution subcutaneous insulin pen RxNorm: 373659 Inject 30 Unit(s) Subcutaneous BID 10/07/19 023 Inactive Humulin R U-500 (Concentrated) Insulin 500 unit/mL subcutaneous soln RxNorm: 561056 Inject 100 Unit(s) Subcutaneous TID 10/07/19 024 Inactive Ozempic 0.25 mg or 0.5 mg (2 mg/3 mL) subcutaneous pen injector RxNorm: 3918817 Inject 1/2 Milligram(s) Subcutaneous QW once a week 10/07/19 024 Inactive aripiprazole 15 mg tablet RxNorm: 178674 1/2 TAB (7.5MG) ORALLY DAILY (DX:MAJOR DEPRESSIVE DISORDER) 09/23/19 023 Inactive Accu-Chek Guide test strips RxNorm: Use 1 Test Strip QID 09/15/19 023 Inactive ok to substitute with any covered alternative test strip Lancets,Thin 28 gauge RxNorm: Use 1 as directed QID 09/15/19 23 023 Inactive torsemide 20 mg tablet RxNorm: 670891 Take 1 Tablet(s) Oral BID 09/09/19 23 024 Inactive d/c once daily dosing carvedilol 25 mg tablet RxNorm: 876250 Take 1 Tablet(s) Oral QD 08/25/19 23 024 Inactive pregabalin 150 mg capsule RxNorm: 192007 1 Capsule(s) Oral HS at bed time 08/18/19 23 023 Inactive pregabalin 100 mg capsule RxNorm: 942561 1 Capsule(s) Oral QAM every morning 08/18/19 23 023 Inactive carvedilol 25 mg tablet RxNorm: 076096 1 Tablet(s) Oral QD 07/28/19 23 023 Inactive lisinopril 20 mg tablet RxNorm: 583188 Give 1 Tablet(s) Oral QD 07/28/19 23 023 Inactive Lyrica 150 mg capsule RxNorm: 791106 Take 1 Capsule(s) Oral QHS every night at bedtime 07/19/19 23 023 Inactive d/c 100mg dose Diflucan 150 mg tablet RxNorm: 072386 Take 1 Tablet(s) Oral QD repeat on day 3 and 6 07/19/19 23 023 Inactive pregabalin 100 mg capsule RxNorm: 926803 Take 1 Capsule(s) Oral QAM every morning 07/19/19 023 Inactive gatifloxacin 0.5 % eye drops RxNorm: 211671 Instill 1 Drop(s) as directed TID Instill 1 drop in to affected eye(s) starting 1 day prior to surgery and continue until gone (do not exceed 4 weeks). 07/13/19 23 023 Inactive carvedilol 25 mg tablet RxNorm: 481236 2 Tablet(s) Oral BID 07/13/19 23 023 Inactive Humulin R Regular U-100 Insulin 100 unit/mL injection solution RxNorm: 594652 85 Unit(s) Injection TID 07/13/19 23 023 Inactive ketorolac 0.5 % eye drops RxNorm: 261821 Instill 1 Drop(s) as directed QID Instill 1 drop into affected eye(s) 4 times daily starting 1 day prior to surgery and continue until gone (do not exceed 4 weeks). 07/13/19 23 023 Inactive Diflucan 150 mg tablet RxNorm: 877601 Take 1 Tablet(s) Oral QD repeat on day 3 and 6 06/30/19 023 Inactive Accu-Chek Guide test strips RxNorm: Use 1 Test Strip QID Use 1 test strip to monitor blood glucose 4 times daily and as needed. Dx:E11.42. 06/23/19 023 Inactive ok to substitute with any covered alternative test strip dextromethorphan-gu aifenesin 10 mg-100 mg/5 mL oral liquid RxNorm: 769677 Take 10 Milliliter(s) Oral every 4 hours as needed for cough 06/19/19 023 Inactive dextromethorphan-gu aifenesin 10 mg-100 mg/5 mL oral liquid RxNorm: 086258 Take 10 Milliliter(s) Oral every 4 hours as needed for cough 06/19/19 023 Inactive Lyrica 150 mg capsule RxNorm: 910387 Take 1 Capsule(s) Oral QHS every night at bedtime 06/18/19 023 Inactive d/c 100mg dose aripiprazole 15 mg tablet RxNorm: 267691 1/2 TAB (7.5MG) ORALLY DAILY (DX:MAJOR DEPRESSIVE DISORDER) 06/05/19 023 Inactive pregabalin 100 mg capsule RxNorm: 877850 1 Capsule(s) Oral QAM every morning 06/02/19 023 Inactive Banophen 50 mg capsule RxNorm: 5736045 Take 1 Capsule(s) Oral Q6H every 6 hours as needed 05/19/19 23 No Stop Date Active Novolog Flexpen U-100 Insulin aspart 100 unit/mL (3 mL) subcutaneous RxNorm: 5773657 Inject 10 Unit(s) Subcutaneous QHS every night at bedtime with nighttime snack 04/08/20 022 Inactive Novolog Flexpen U-100 Insulin aspart 100 unit/mL (3 mL) subcutaneous RxNorm: 0573617 Inject 42 Unit(s) Subcutaneous TID in addition to sliding scale 04/08/20 022 Inactive d/c 36u albuterol sulfate HFA 90 mcg/actuation aerosol inhaler RxNorm: 8375879 Take 2 Puff(s) Inhalation Q4H every four hours as needed as needed for SOB, cough, or wheezing 04/07/20 030 Active Banophen 50 mg capsule RxNorm: 9058335 Take 1 Capsule(s) Oral Q6H every 6 hours as needed 04/06/20 023 Inactive diphenhydramine 50 mg tablet RxNorm: 9469133 Take 1 Tablet(s) Oral Q6H every 6 hours as needed 04/06/20 022 Inactive diphenhydramine 50 mg tablet RxNorm: 4423794 1 Tablet(s) Oral Q6H every 6 hours as needed 04/06/20 022 Inactive Abilify 15 mg tablet RxNorm: 993022 1/2 Tablet(s) Oral QD 03/10/20 023 Inactive Shingrix (PF) 50 mcg/0.5 mL intramuscular suspension, kit RxNorm: 5149645 Administer 1/2 Milliliter(s) Intramuscular QD one time shingrix step 2 ( step 1 given 11/04/21) WITH needle - Nursing please administer upon arrival and once administered post a bridge message with date of administration, software test manager, expiration date, and lot# so we can update ORIC 02/18/20 22 022 Inactive dispense with needle Shingrix (PF) 50 mcg/0.5 mL intramuscular suspension, kit RxNorm: 7966598 Administer 1/2 Milliliter(s) Intramuscular QD one time shingrix step 2 ( step 1 given 11/04/21) WITH needle - Nursing please administer upon arrival and once administered post a bridge message with date of administration, software test manager, expiration date, and lot# so we can update ORIC 02/18/20 22 022 Inactive dispense with needle polyethylene glycol 3350 17 gram/dose oral powder RxNorm: 673336 Take 17=1 capful Gram(s) Oral QD mix with 4-8oz of liquid 01/08/20 22 023 Inactive take this in addition to BID prn order Lyrica 100 mg capsule RxNorm: 087489 Take 1 Capsule(s) Oral QAM every morning 01/08/20 22 022 Inactive d/c 50mg dose acetaminophen 500 mg tablet RxNorm: 048807 Take 1 Tablet(s) Oral TID 01/08/20 22 022 Inactive d/c PRN order Lyrica 150 mg capsule RxNorm: 972024 Take 1 Capsule(s) Oral QHS every night at bedtime 01/08/20 22 023 Inactive d/c 100mg dose Abilify 5 mg tablet RxNorm: 512958 Take 1 Tablet(s) Oral QD take 1 tab po QD #30 refill 5 dx: MDD 12/12/19 22 022 Inactive Abilify 5 mg tablet RxNorm: 185756 Take 1 Tablet(s) Oral QD take 1 tab po QD #30 refill 5 dx: MDD 12/12/19 22 022 Inactive Novolog Flexpen U-100 Insulin aspart 100 unit/mL (3 mL) subcutaneous RxNorm: 2463208 Inject 42 Unit(s) Subcutaneous TID in addition to sliding scale 12/10/19 22 022 Inactive d/c 36u chlorthalidone 25 mg tablet RxNorm: 124370 Take 1 Tablet(s) Oral QAM every morning 12/10/19 22 023 Inactive pregabalin 50 mg capsule RxNorm: 829159 Take 1 Capsule(s) Oral QAM every morning 11/12/19 22 022 Inactive tetanus-diphtheria toxoids-Td 2 Lf unit-2 Lf unit/0.5 mL IM suspension RxNorm: 139 Take 0.5 Miscellaneous Intramuscular 11/12/19 22 022 Inactive need tdap - nursing to administer upon arrival pregabalin 50 mg capsule RxNorm: 942285 Take 1 Capsule(s) Oral QAM every morning 10/16/19 22 022 Inactive pregabalin 50 mg capsule RxNorm: 306452 Take 1 Capsule(s) Oral QAM every morning 10/16/19 22 022 Inactive pregabalin 50 mg capsule RxNorm: 871435 1 Capsule(s) Oral QAM every morning 10/15/19 22 022 Inactive Shingrix (PF) 50 mcg/0.5 mL intramuscular suspension, kit RxNorm: 0502064 Administer 1/2 Milliliter(s) Intramuscular one time Nursing please administer upon arrival and once administered post a bridge message with date of administration, software test manager, expiration date, and lot# so we can update [facility]. 10/09/19 22 022 Inactive shingrix step 1 Shingrix (PF) 50 mcg/0.5 mL intramuscular suspension, kit RxNorm: 2945950 Administer 1/2 Milliliter(s) Intramuscular one time Nursing please administer upon arrival and once administered post a bridge message with date of administration, software test manager, expiration date, and lot# so we can update [facility]. 10/09/19 22 022 Inactive shingrix step 1 cholecalciferol (vitamin D3) 1,250 mcg (50,000 unit) capsule RxNorm: 776685 Take 1 Capsule(s) Oral QW once a [...] aspart 100 unit/mL (3 mL) subcutaneous RxNorm: 5371055 Inject 10 Unit(s) Subcutaneous QHS every night at bedtime with nighttime snack 10/08/19 22 022 Inactive Shingrix (PF) 50 mcg/0.5 mL intramuscular suspension, kit RxNorm: 3308493 ADMINISTER 2-DOSE SERIES PER CDC GUIDELINES 10/08/19 22 022 Active Shingrix (PF) 50 mcg/0.5 mL intramuscular suspension, kit RxNorm: 5635259 ADMINISTER 2-DOSE SERIES PER CDC GUIDELINES 10/08/19 22 022 Inactive Novolog Flexpen U-100 Insulin aspart 100 unit/mL (3 mL) subcutaneous RxNorm: 5781904 Inject 36 Unit(s) Subcutaneous TID in addition to sliding scale 10/08/19 Inactive Novofine Autocover 30 gauge x 1/3 needle RxNorm: Use 1 Miscellaneous UD as directed Use 1 needle as directed to administer insulin 5 times a day Dx:E11.42. 10/03/19 22 Inactive ok to substitute with any covered alternative pen needle benzoyl peroxide 10 % topical cleanser RxNorm: 228561 Apply 1 Application Topical QD apply to face, wash rinse and dry once daily (may change to QOD if drying) 08/19/19 022 Inactive (%covered by insurance) #60ml refill 11 dx: acne benzoyl peroxide 10 % topical cleanser RxNorm: 711823 Apply 1 Application Topical QD apply to face, wash rinse and dry once daily (may change to QOD if drying) 08/19/19 022 Inactive (%covered by insurance) #60ml refill 11 dx: acne benzoyl peroxide 10 % topical cleanser RxNorm: 267703 Apply 1 Application Topical QD apply to face, wash rinse and dry once daily (may change to QOD if drying) 08/19/19 022 Inactive (%covered by insurance) #60ml refill 11 dx: acne Lyrica 50 mg capsule RxNorm: 305415 Take 1 Capsule(s) Oral QAM every morning Take 1 capsule by mouth once daily 08/19/19 022 Inactive benzoyl peroxide 10 % topical cleanser RxNorm: 535951 Apply 1 Application Topical QD apply to face, wash rinse and dry once daily (may change to QOD if drying) 08/19/19 022 Inactive (%covered by insurance) #60ml refill 11 dx: acne Lyrica 100 mg capsule RxNorm: 367770 Take 1 Capsule(s) Oral QHS every night at bedtime Take 1 capsule by mouth once daily at bedtime 08/19/19 22 022 Inactive Lyrica 100 mg capsule RxNorm: 542891 Take 1 Capsule(s) Oral QHS every night at bedtime Take 1 capsule by mouth once daily at bedtime 08/16/19 22 022 Inactive Lyrica 50 mg capsule RxNorm: 026932 Take 1 Capsule(s) Oral QAM every morning Take 1 capsule by mouth once daily 08/16/19 22 022 Inactive Levemir FlexTouch U-100 Insulin 100 unit/mL (3 mL) subcutaneous pen RxNorm: 531397 Inject 86 Unit(s) Subcutaneous BID 08/05/19 22 022 Inactive d/c 83units BID Lyrica 100 mg capsule RxNorm: 333843 Take 1 Capsule(s) Oral QHS every night at bedtime Take 1 capsule by mouth once daily at bedtime 07/14/19 22 022 Inactive Lyrica 50 mg capsule RxNorm: 218668 Take 1 Capsule(s) Oral QAM every morning Take 1 capsule by mouth once daily 07/14/19 22 022 Inactive Levemir FlexTouch U-100 Insulin 100 unit/mL (3 mL) subcutaneous pen RxNorm: 695732 Inject 83 Unit(s) Subcutaneous BID 07/08/19 22 [...] test strip hydralazine 50 mg tablet RxNorm: 747312 Take 1 Tablet(s) Oral QID 05/05/20 21 022 Inactive venlafaxine ER 225 mg tablet,extended release 24 hr RxNorm: 196349 Take 1 Tablet(s) Oral QD 05/05/20 21 021 Inactive venlafaxine ER 225 mg tablet,extended release 24 hr RxNorm: 426809 Take 1 Tablet(s) Oral QD 05/05/20 022 Inactive isosorbide mononitrate ER 30 mg tablet,extended release 24 hr RxNorm: 335505 Take 1 Tablet(s) Oral QD 05/05/20 024 Inactive hydralazine 50 mg tablet RxNorm: 234880 Take 1 Tablet(s) Oral QID 05/05/20 21 Inactive aspirin 81 mg tablet,delayed release RxNorm: 972926 Take 1 Tablet(s) Oral QD 03/31/20 022 Inactive Vitamin D2 1,250 mcg (50,000 unit) capsule RxNorm: 0212776 Take 1 Capsule(s) Oral QW once a week x 12 weeks 03/31/20 022 Inactive Vitamin D2 1,250 mcg (50,000 unit) capsule RxNorm: 8846069 Take 1 Capsule(s) Oral QW once a week 03/31/20 021 Inactive Zetia 10 mg tablet RxNorm: 856063 Take 1 Tablet(s) Oral QD 03/31/20 21 024 Inactive Zetia 10 mg tablet RxNorm: 253956 Take 1 Tablet(s) Oral QD 03/31/20 21 021 Inactive hydralazine 25 mg tablet RxNorm: 961106 Take 1 Tablet(s) Oral QID 03/31/20 21 021 Inactive hydralazine 25 mg tablet RxNorm: 992358 Take 1 Tablet(s) Oral QID 03/31/20 021 Inactive hydralazine 10 mg tablet RxNorm: 503902 Take 1 Tablet(s) Oral QID 03/03/20 021 Inactive cephalexin 500 mg tablet RxNorm: 492375 Take 1 Tablet(s) Oral QID 02/27/20 021 Inactive cephalexin 500 mg tablet RxNorm: 263042 Take 1 Tablet(s) Oral QID 02/27/20 021 Inactive lisinopril 40 mg tablet RxNorm: 991130 Take 1 Tablet(s) Oral QD 02/11/20 023 Inactive Eliquis 5 mg tablet RxNorm: 3114133 Take 1 Tablet(s) Oral BID 01/05/20 022 Inactive Eliquis 5 mg tablet RxNorm: 5980530 Take 2 Tablet(s) Oral QD 01/01/20 21 021 Inactive Lyrica 50 mg capsule RxNorm: 148840 Take 1 Capsule(s) Oral QAM every morning 12/24/19 021 Inactive Lyrica 100 mg capsule RxNorm: 833257 Take 1 Capsule(s) Oral QHS every night at bedtime 12/24/19 021 Inactive clotrimazole 1 % topical cream RxNorm: 356722 Apply to right foot and toes Topical BID 12/04/19 21 023 Inactive metoprolol succinate ER 200 mg tablet,extended release 24 hr RxNorm: 952285 Take 1 Tablet(s) Oral QD 12/04/19 21 023 Inactive ciprofloxacin 500 mg tablet RxNorm: 538519 Take 1 Tablet(s) Oral QD 11/30/19 21 021 Inactive DX ofloxacin otic drops Accu-Chek Guide test strips RxNorm: USE 1 TO CHECK GLUCOSE 4 TIMES DAILY AND NEEDED 11/15/19 21 023 Inactive Blood Glucose Test strips RxNorm: Use 1 Test Strip QID at PRN 11/05/19 21 023 Inactive E11.42 lisinopril 30 mg tablet RxNorm: 790328 Take 1 Tablet(s) Oral QD 10/30/19 21 021 Inactive lisinopril 20 mg tablet RxNorm: 496654 Take 1 Tablet(s) Oral QD 10/23/19 021 Inactive lisinopril 20 mg tablet RxNorm: 600549 Take 1 Tablet(s) Oral QD 10/23/19 21 021 Inactive lisinopril 10 mg tablet RxNorm: 223177 Take 1 Tablet(s) Oral QD 10/02/19 021 Inactive icosapent ethyl 1 gram capsule RxNorm: 8651926 Take 2 Capsule(s) (2 gm) Oral BID with meals 09/12/19 21 024 Inactive Okay to dispense one 2gm tab if you have that available. icosapent ethyl 1 gram capsule RxNorm: 8309704 Take 2 Capsule(s) Oral BID 09/12/19 21 021 Inactive Okay to dispense one 2gm tab if you have that available. amlodipine 10 mg tablet RxNorm: 863977 Take 1 Tablet(s) Oral QD 09/04/19 21 022 Inactive aspirin 81 mg tablet,delayed release RxNorm: 845795 Take 1 Tablet(s) Oral QD 09/04/19 021 Inactive Levemir FlexTouch U-100 Insulin 100 unit/mL (3 mL) subcutaneous pen RxNorm: 754798 Inject 150 Unit(s) Subcutaneous BID 09/04/19 21 022 Inactive venlafaxine ER 150 mg tablet,extended release 24 hr RxNorm: 506921 Take 1 Tablet(s) Oral QD 09/04/19 21 021 Inactive clotrimazole-betame thasone 1 %-0.05 % topical cream RxNorm: 840675 Apply to rash on red area on left abdomen/chest Topical BID 08/10/19 21 021 Inactive amlodipine 5 mg tablet RxNorm: 804132 Take 1 Tablet(s) Oral QD 07/31/19 021 Inactive cephalexin 500 mg tablet RxNorm: 656028 Take 1 Tablet(s) Oral BID BID - Twice Daily 07/31/19 021 Inactive Start 08/01/20 pantoprazole 40 mg tablet,delayed release RxNorm: 347449 Take 1 Tablet(s) Oral QAM every morning 07/08/19 022 Inactive senna 8.6 mg tablet RxNorm: 097716 Take 1 Tablet(s) Oral QD 07/08/19 022 Inactive carbamazepine 200 mg tablet RxNorm: 675970 Take 1 Tablet(s) Oral BID 07/08/19 Inactive clopidogrel 75 mg tablet RxNorm: 287034 Take 1 Tablet(s) Oral QD 07/08/19 021 Inactive Blood Glucose Test strips RxNorm: Use 1 Test Strip QID at PRN 07/08/19 Inactive E11.42 Novolog Flexpen U-100 Insulin aspart 100 unit/mL (3 mL) subcutaneous RxNorm: 0005161 Administer per sliding scale Milliliter(s) Subcutaneous TID 151-200: 10 u; 201-250: 20 u; 251-300: 30 u; 301-350: 40 u; 351-400: 50 u. 07/08/19 Inactive lisinopril 5 mg tablet RxNorm: 981879 Take 1 Tablet(s) Oral QD 07/08/19 021 Inactive Novolog Flexpen U-100 Insulin aspart 100 unit/mL (3 mL) subcutaneous RxNorm: 9543139 Inject 85 Unit(s) Subcutaneous TID 07/08/19 022 Inactive pravastatin 80 mg tablet RxNorm: 367793 Take 1 Tablet(s) Oral QHS every night at bedtime 07/08/19 023 Inactive clotrimazole 1 % topical cream RxNorm: 660298 Apply to bilateral groin areas Topical BID 07/08/19 022 Inactive metoprolol succinate ER 200 mg tablet,extended release 24 hr RxNorm: 097546 Take 1 Tablet(s) Oral QD 07/08/19 021 Inactive Vitamin D3 25 mcg (1,000 unit) tablet RxNorm: 079214 Take 1 Tablet(s) Oral QD 07/08/19 Inactive isosorbide dinitrate 30 mg tablet RxNorm: 895090 Take 1 Tablet(s) Oral QD 07/08/19 021 Inactive Levemir FlexTouch U-100 Insulin 100 unit/mL (3 mL) subcutaneous pen RxNorm: 002785 Inject 140 Unit(s) Subcutaneous BID 07/08/19 021 Inactive torsemide 20 mg tablet RxNorm: 536561 Take 1 Tablet(s) Oral QD 07/08/19 023 Inactive venlafaxine 75 mg tablet RxNorm: 400000 Take 1 Tablet(s) Oral QD 07/08/19 021 Inactive acetaminophen 500 mg tablet RxNorm: 133421 Take 1 Tablet(s) Oral TID as needed for headache 06/18/19 021 Inactive acetaminophen 500 mg tablet RxNorm: 009165 Take 1 Tablet(s) Oral TID as needed for headache 06/18/19 021 Inactive Lyrica 100 mg capsule RxNorm: 488494 Take 1 Capsule(s) Oral QHS every night at bedtime 06/11/19 021 Inactive Lyrica 50 mg capsule RxNorm: 526764 Take 1 Capsule(s) Oral QAM every morning 06/10/19 021 Inactive hydrocortisone 2.5 % topical cream RxNorm: 715823 Apply to bilateral groin creases Topical BID 05/15/20 20 021 Inactive clotrimazole 1 % topical cream RxNorm: 930865 Apply to bilateral groin areas Topical BID 05/15/20 20 021 Inactive Lyrica 50 mg capsule RxNorm: 276990 Take 1 Capsule(s) Oral QAM every morning 05/14/20 20 020 Inactive Lyrica 100 mg capsule RxNorm: 132331 Take 1 Capsule(s) Oral QHS every night at bedtime 05/14/20 20 12/29/2 020 Inactive Lancets,Thin 28 gauge RxNorm: Use [...] Inactive Nystop 100,000 unit/gram topical powder RxNorm: 649195 Apply to abd folds, under breasts and L side of groin Topical BID x 14 days, then BID PRN 04/08/20 20 Inactive dx: yeast dermatitis Lyrica 100 mg capsule RxNorm: 935826 Take 1 Capsule(s) Oral QHS every night at bedtime 03/13/20 20 Inactive Lyrica 50 mg capsule RxNorm: 260890 Take 1 Capsule(s) Oral QAM every morning 03/13/20 20 Inactive ketoconazole 2 % shampoo RxNorm: 744892 Apply Topical two times a week with showers 03/11/20 20 Inactive cholecalciferol (vitamin D3) 50 mcg (2,000 unit) tablet RxNorm: 753328 Take 1 Tablet(s) Oral QD 03/11/20 20 021 Inactive Zetia 10 mg tablet RxNorm: 847495 Take 1 Tablet(s) Oral QD 03/07/20 20 021 Inactive Zetia 10 mg tablet RxNorm: 320074 Take 1 Tablet(s) Oral QD 03/07/20 20 Inactive Lyrica 50 mg capsule RxNorm: 503425 Take 1 Capsule(s) Oral QAM every morning 02/15/20 Inactive Lyrica 100 mg capsule RxNorm: 746185 Take 1 Capsule(s) Oral QHS every night at bedtime 02/15/20 Inactive Lyrica 100 mg capsule RxNorm: 227454 Take 1 Capsule(s) Oral QHS every night at bedtime 02/15/20 Inactive Lyrica 50 mg capsule RxNorm: 134471 Take 1 Capsule(s) Oral QAM every morning 02/15/20 Inactive metoprolol succinate ER 200 mg tablet,extended release 24 hr RxNorm: 974363 Take 1 Tablet(s) Oral QD 08/11 Activeloperamide 2 mg capsuleRxNorm: 395196Bdlq 1 Capsule(s) Oral QID as needed 06/12/2021ctivehydralazine 50 mg tabletRxNorm: 692857Pjgl 1 Tablet(s) Oral QID 08/11/2022ctiveSoft Touch LancetsRxNorm:jjnhlfrxzycou46/19/2024ctive venlafaxine ER 75 mg capsule,extended release 24 hrRxNorm: 218236Enwh 3 Capsule(s) Oral QD/Inactivepolyethylene glycol 3350 17 gram/dose oral powderRxNorm: 482392Ykwl 17=1 capful Gram(s) Oral BID as needed mix with 4-8oz of kptezc89/Inactiveicosapent ethyl 1 gram capsuleRxNorm: 0547031Qrcy 2 Capsule(s) (2 gm) Oral BID with meals10/06/2022 10/05/2022InactiveOkay to dispense one 2gm tab if you have that available. Levemir FlexTouch U-100 Insulin 100 unit/mL (3 mL) subcutaneous penRxNorm: 738109Dcokvz 80 Unit(s) Subcutaneous BID/InactiveNovolog Flexpen U-100 Insulin aspart 100 unit/mL (3 mL) subcutaneousRxNorm: 7807031 Insert 30 Unit(s) Subcutaneous TID with meals/Inactive Medication [...] Date Referral: [facility] WPtel: [address], [address] [id number] USReferralRecords Ejectruz70/08/2023Referral: [facility] WPtel: [address] [id number]/12/2022Referral: General CardiologyReferralCompleted 1Referral: General PsychologistReferralClosedReferral: General PsychiatristReferralPatient/Family [...] Sister Jyotsna involved in his care cell# [phone] Guardian: Don (tapan met in person 09/01/21), [...] note from 11.08.2023 at [facility] (follow up 6 months)Colon & Rectal Surgery visit scheduled for 03/08/24 with Matilde Pérez PA-C. 02/08/2024
--- OUTSIDE RECORDS SUMMARY | 2024-03-03 18:00 | XMS_ITS | CCD ---
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 Sumo Wrestler Name Role Phone Arpit MCKINLEY-CHarrison Primary Care Provider Leona vailable [place] [employer], [facility] Chronic [facility] Management U navailable Summary Purpose DataExchange Insurance Providers Payer name Policy type / Coverage type Covered alliance party ID Effective Begin Date Effective End Date Medicare [place] Medicare Part B [id number] Unknown Unknown Medicaid [place] Medicare Part B [id number] Unknown Unknown Family history Sister Brittany Suggs Diagnosis Age At Onset No Family Disease Entered N/A Runs in the family Diagnosis Age At Onset No Known Diseases N/A Sister Blanka Mcduffie Diagnosis Age At Onset No Family Disease Entered N/A Social History Social History Element Codes Description Effec tive Dates Tobacco history SNOMED CT: 510804278 Never smoker 01/16 Sexually Active? Unknown No [...] Single 10/07/2021 Living arrangements Unknown Assisted 09/03/[address]: 094335130 No Alcohol Consum ption 09/02/2020 Allergies, Adverse Reactions, Alerts Substance Reaction Codes Entered Date Inactivated Date Status * NO KNOWN FOOD ALLERGIES Gsmcvdq5307/13/2023No Inactive DateActiveLISINOPRILRxNorm: 8396381No Inactive DateActiveMetformin JAhJpnaofw56/28/2020No Inactive DateActive* NO KNOWN ENVIRONMENTAL PLRSRINDIKaitbsr58/27/2024No Inactive DateActive Problems Condition Codes Effective Dates [...] E55.9 ICD-9: 268.909/ctiveCallus of heelICD-10: L84 ICD-9: 11523/esolvedGout due to renal impairmentICD-10: M10.30 ICD-9: 274.1005/esolvedHyperhidrosis of palmsICD-10: L74.512 ICD-9: 705.2105esolvedHyperlipidemia, unspecifiedICD-10: E78.5 ICD-9: 272.405/esolvedOther halfway (current) drug therapyICD-10: Z79.899 ICD-9: V58.6905/esolvedPain of [...] tagICD-10: L91.8 ICD-9: 701.904/esolvedCoronary artery disease involving [place] coronary artery of [place] heart, angina presence unspecifiedICD-10: I25.10 ICD-9: 414.0102/ctiveInappropriate sexual behaviorICD-10: Z72.89 ICD-9: 312.8910/ctivePre-op evaluationICD-10: Z01.818 ICD-9: V72.8403/ctiveSecondary hypertensionICD-10: I15.9 ICD-9: 405.9903/ctiveDepressionICD-10: F32.9 ICD-9: 93625/esolvedDVT (deep venous thrombosis)ICD-10: I82.409 ICD-9: 453.4009/esolvedEncounter for [...] to other viral communicable diseasesICD-10: Z20.828 ICD-9: V01.79028470BywlwvqvTlgdwuxlZevkucu94/28/2020ActiveDiabetes mellitus Type 9Bsdznkz52/28/2020ActiveAnemia in chronic kidney diseaseICD-10: D63.1 02/12/2020ResolvedHyperlipidemia, unspecifiedICD-10: [...] PRN) to be use with new Accu Baring meter 03/04/20 024 Active ok to substitute with any covered alternative test strip nystatin 100,000 unit/gram topical powder RxNorm: 300015 Apply 1 Application Topical BID as needed [...] (Concentrated) Insulin 500 unit/mL subcutaneous soln RxNorm: 690607 Inject 100 Unit(s) Subcutaneous TID 02/17/20 24 025 Active Basaglar KwikPen U-100 Insulin 100 unit/mL (3 mL) subcutaneous RxNorm: 7695798 Inject 30 Unit(s) Subcutaneous BID 02/10/20 24 024 Active Please dispense one month supply. Humulin R U-500 (Concentrated) Insulin 500 unit/mL subcutaneous soln RxNorm: 168465 Inject 100 Unit(s) Subcutaneous TID 02/10/20 24 024 Inactive pregabalin 100 mg capsule RxNorm: 408413 Take 1 Capsule(s) Oral QAM every morning 02/07/20 24 024 Active isosorbide mononitrate ER 60 mg tablet,extended release 24 hr RxNorm: 590911 Take 1 Tablet(s) Oral QD 02/01/20 24 025 Active aripiprazole 15 mg tablet RxNorm: 166489 Take 1/2 Tablet(s) Oral QD 02/01/20 24 025 Active torsemide 20 mg tablet RxNorm: 582995 1 TAB ORALLY DAILY (DX: EDEMA) 01/27/20 No Stop Date Active potassium chloride ER 20 mEq tablet,extended release(part/cryst) RxNorm: 2722183 2 TABS (40MEQ) ORALLY TWICE DAILY (DX: HYPOKALEMIA) 01/27/20 No Stop Date Active cephalexin 500 mg capsule RxNorm: 634340 Take 1 Capsule(s) Oral QID 12/17/19 24 024 Inactive cephalexin 500 mg capsule RxNorm: 140043 Take 1 Capsule(s) Oral QID 12/17/19 24 024 Inactive acetaminophen 500 mg tablet RxNorm: 743335 (MAX APAP:4GM/24HR) Take 1 Tablet(s) Oral TID as needed for pain 12/10/19 24 Active torsemide 20 mg tablet RxNorm: 038497 Take 1 Tablet(s) Oral QD 10/26/19 24 024 Inactive potassium chloride ER 20 mEq tablet,extended release RxNorm: 613010 Take 2 Tablet(s) Oral BID 10/26/19 24 Active torsemide 20 mg tablet RxNorm: 212607 Take 1 Tablet(s) Oral QD 10/26/19 24 024 Inactive potassium chloride ER 20 mEq tablet,extended release RxNorm: 710165 Take 2 Tablet(s) Oral BID 10/26/19 24 024 Inactive Artificial Tears (PF) 0.1 %-0.3 % drops in a dropperette RxNorm: 327233 Apply 1-2 Drop(s) Both eyes BID as needed 09/28/19 24 025 Active erythromycin 5 mg/gram (0.5 %) eye ointment RxNorm: 143270 Apply 1 Application Both eyes QHS every night at bedtime Instill ~1 cm ribbon into affected eye 09/28/19 24 024 Inactive Artificial Tears (PF) 0.1 %-0.3 % drops in a dropperette RxNorm: 403235 Apply 1-2 Drop(s) Both eyes BID as needed 09/28/19 24 Inactive erythromycin 5 mg/gram (0.5 %) eye ointment RxNorm: 309587 Apply 1 Application Both eyes QHS every night at bedtime Instill ~1 cm ribbon into affected eye 09/28/19 24 Inactive acetaminophen 500 mg tablet RxNorm: 194779 (MAX APAP:4GM/24HR) Take 1 Tablet(s) Oral TID as needed for pain 09/24/19 24 Inactive carvedilol 25 mg tablet RxNorm: 628272 Take 1 Tablet(s) Oral QD 09/08/19 24 No Stop Date Active pregabalin 100 mg capsule RxNorm: 380458 Take 1 Capsule(s) Oral QAM every morning 09/07/19 24 Inactive rosuvastatin 40 mg tablet RxNorm: 440267 Take 1 Tablet(s) Oral QPM every evening 07/13/19 24 No Stop Date Active ezetimibe 10 mg tablet RxNorm: 580714 Take 1 Tablet(s) Oral QD 07/13/19 24 No Stop Date Active bisacodyl 10 mg rectal suppository RxNorm: 972906 Insert 1 Suppository Rectal QD as needed 07/13/19 24 No Stop Date Active polyethylene glycol 3350 17 gram/dose oral powder RxNorm: 407313 Take 17 Gram(s) Oral BID as needed mix in 4-8ox water 07/13/19 24 No Stop Date Active ketoconazole 2 % shampoo RxNorm: 751201 Apply 1 Application Topical UD as directed 07/13/19 24 No Stop Date Active Ozempic 1 mg/dose (4 mg/3 mL) subcutaneous pen injector RxNorm: 9039305 Inject 1 Milligram(s) Subcutaneous QW once a week 07/13/19 24 No Stop Date Active Guaifenesin AC 10 mg-100 mg/5 mL oral liquid RxNorm: 961922 Take 10 Milliliter(s) Oral Q4H every four hours as needed 07/13/19 24 No Stop Date Active ammonium lactate 12 % topical cream RxNorm: 133815 Apply 1 Application Topical BID 07/13/19 24 No Stop Date Active hydrocortisone 2.5 % topical cream RxNorm: 976945 Apply 1 Application Topical BID as needed 07/13/19 24 No Stop Date Active rosuvastatin 20 mg sprinkle capsule RxNorm: 6722823 Take 1 Capsule(s) Oral QD 07/13/19 24 No Stop Date Active Vascepa 1 gram capsule RxNorm: 6159730 Take 2 Capsule(s) Oral BID 07/13/19 24 No Stop Date Active venlafaxine ER 75 mg capsule,extended release 24 hr RxNorm: 727514 Take 3 Capsule(s) Oral QD 07/13/19 24 No Stop Date Active aripiprazole 15 mg tablet RxNorm: 485646 Take 1/2 Tablet(s) Oral QD 07/13/19 24 024 Inactive isosorbide mononitrate ER 60 mg tablet,extended release 24 hr RxNorm: 258333 Take 1 Tablet(s) Oral QD 07/13/19 24 024 Inactive Basaglar KwikPen U-100 Insulin 100 unit/mL (3 mL) subcutaneous RxNorm: 3745970 Inject 30U SubQ twice daily 07/07/19 24 024 Inactive Please dispense one month supply. Basaglar KwikPen U-100 Insulin 100 unit/mL (3 mL) subcutaneous RxNorm: 0019588 Inject 30U SubQ twice daily 07/07/19 24 024 Inactive Please dispense one month supply. pregabalin 150 mg capsule RxNorm: 100597 Take 1 Capsule(s) Oral QHS every night at bedtime 07/05/19 24 024 Inactive pregabalin 150 mg capsule RxNorm: 682275 Take 1 Capsule(s) Oral QHS every night at bedtime 07/05/19 24 024 Inactive polyethylene glycol 3350 17 gram/dose oral powder RxNorm: 803865 Take 1 Packet Oral QD as needed (1 packet = 17g) mix with 4-8oz of liquid 06/15/19 24 024 Inactive bisacodyl 10 mg rectal suppository RxNorm: 057815 Insert one suppository per rectum once daily as needed for constipation 06/15/19 24 024 Inactive bisacodyl 10 mg rectal suppository RxNorm: 754926 Insert one suppository per rectum once daily as needed for constipation 06/15/19 024 Inactive pregabalin 100 mg capsule RxNorm: 670502 Take 1 Capsule(s) Oral QAM every morning 04/27/20 024 Inactive Levemir FlexPen 100 unit/mL (3 mL) solution subcutaneous insulin pen RxNorm: 995628 Inject 30 Unit(s) Subcutaneous BID 04/27/20 024 Inactive rosuvastatin 40 mg tablet RxNorm: 269288 Take 1 Tablet(s) Oral QPM every evening 04/16/20 024 Inactive D/C rosuvastatin 20mg venlafaxine ER 75 mg capsule,extended release 24 hr RxNorm: 125673 Take 3 Capsule(s) Oral QD 04/14/20 023 Inactive pregabalin 100 mg capsule RxNorm: 042219 Take 1 Capsule(s) Oral QAM every morning [...] strip clotrimazole 1 % topical cream RxNorm: 751907 Take apply topically to abdominal folds twice daily for 14 days 03/12/20 024 Inactive Ozempic 1 mg/dose (4 mg/3 mL) subcutaneous pen injector RxNorm: 1219396 Inject 1 Milligram(s) Subcutaneous QW once a week 03/11/20 023 Inactive rosuvastatin 20 mg tablet RxNorm: 288953 Take 1 Tablet(s) Oral QD 02/26/20 023 Inactive d/c pravastatin 80mg Ozempic 1 mg/dose (4 mg/3 mL) subcutaneous pen injector RxNorm: 0481766 Inject 1 Milligram(s) Subcutaneous QW once a week 02/20/20 23 023 Inactive pregabalin 150 mg capsule RxNorm: 775920 Take 1 Capsule(s) Oral HS at bed time 02/19/20 023 Inactive pregabalin 100 mg capsule RxNorm: 730470 Take 1 Capsule(s) Oral QAM every morning 02/18/20 023 Inactive venlafaxine ER 75 mg capsule,extended release 24 hr RxNorm: 236248 Take 3 Capsule(s) Oral QD 02/04/20 023 Inactive FreeStyle Chema 2 Sensor kit RxNorm: use as directed 02/04/20 23 023 Inactive FreeStyle Chema 2 Sensor kit RxNorm: use as directed 02/04/20 024 Inactive fluconazole 150 mg tablet RxNorm: 449153 Take 1 Tablet(s) Oral on day 3 and on day 6 02/03/20 024 Inactive chlorthalidone 25 mg tablet RxNorm: 086440 Take 1 Tablet(s) Oral QAM every morning 02/03/20 23 No Stop Date Active venlafaxine ER 150 mg capsule,extended release 24 hr RxNorm: 851666 Take 1 Capsule(s) Oral QD 02/03/20 023 Inactive acetaminophen 500 mg tablet RxNorm: 916266 1 TABLET ORALLY 3 TIMES DAILY (MAX APAP:4GM/24HR) 12/15/19 23 023 Inactive clotrimazole 1 % topical cream RxNorm: 375596 apply 1g topically to top of feet and in between toes BID 12/09/19 23 023 Inactive potassium chloride ER 20 mEq tablet,extended release RxNorm: 850472 Take 1 Tablet(s) Oral BID 12/09/19 23 024 Inactive d/c 20mEq once daily (sent from hospital) nystatin 100,000 unit/gram topical powder RxNorm: 169379 APPLY TO AFFECTED AREAS TOPICALLY 2 TIMES DAILY 11/21/19 23 023 Inactive Nystop 100,000 unit/gram topical powder RxNorm: 700541 Apply to abd folds, under breasts and L side of groin Topical BID x 14 days, then BID PRN 11/20/19 023 Inactive dx: yeast dermatitis [place] Ultra Strength 4 %-30 %-10 % topical cream RxNorm: 689106 Apply 1 Gram(s) Topical QID PRN to feet and legs for neuropathic pain 11/11/19 024 Inactive clotrimazole 1 % topical cream RxNorm: 676861 Apply 1/2 Gram(s) Topical BID Apply to affected areas of groin, periarea, and abdominal topically 2 times daily 11/10/19 023 Inactive hydrocortisone 2.5 % topical cream RxNorm: 448725 Apply 1/2 Gram(s) Topical BID as needed 11/10/19 024 Inactive Levemir FlexPen 100 unit/mL (3 mL) solution subcutaneous insulin pen RxNorm: 292501 Inject 30 Unit(s) Subcutaneous BID 10/07/19 023 Inactive Humulin R U-500 (Concentrated) Insulin 500 unit/mL subcutaneous soln RxNorm: 361684 Inject 100 Unit(s) Subcutaneous TID 10/07/19 024 Inactive Ozempic 0.25 mg or 0.5 mg (2 mg/3 mL) subcutaneous pen injector RxNorm: 3077667 Inject 1/2 Milligram(s) Subcutaneous QW once a week 10/07/19 024 Inactive aripiprazole 15 mg tablet RxNorm: 480156 1/2 TAB (7.5MG) ORALLY DAILY (DX:MAJOR DEPRESSIVE DISORDER) 09/23/19 023 Inactive Accu-Chek Guide test strips RxNorm: Use 1 Test Strip QID 09/15/19 023 Inactive ok to substitute with any covered alternative test strip Lancets,Thin 28 gauge RxNorm: Use 1 as directed QID 09/15/19 23 023 Inactive torsemide 20 mg tablet RxNorm: 897416 Take 1 Tablet(s) Oral BID 09/09/19 23 024 Inactive d/c once daily dosing carvedilol 25 mg tablet RxNorm: 469196 Take 1 Tablet(s) Oral QD 08/25/19 23 024 Inactive pregabalin 150 mg capsule RxNorm: 010961 1 Capsule(s) Oral HS at bed time 08/18/19 23 023 Inactive pregabalin 100 mg capsule RxNorm: 098558 1 Capsule(s) Oral QAM every morning 08/18/19 23 023 Inactive carvedilol 25 mg tablet RxNorm: 942097 1 Tablet(s) Oral QD 07/28/19 23 023 Inactive lisinopril 20 mg tablet RxNorm: 494787 Give 1 Tablet(s) Oral QD 07/28/19 23 023 Inactive Lyrica 150 mg capsule RxNorm: 615357 Take 1 Capsule(s) Oral QHS every night at bedtime 07/19/19 23 023 Inactive d/c 100mg dose Diflucan 150 mg tablet RxNorm: 979657 Take 1 Tablet(s) Oral QD repeat on day 3 and 6 07/19/19 23 023 Inactive pregabalin 100 mg capsule RxNorm: 049970 Take 1 Capsule(s) Oral QAM every morning 07/19/19 023 Inactive gatifloxacin 0.5 % eye drops RxNorm: 306135 Instill 1 Drop(s) as directed TID Instill 1 drop in to affected eye(s) starting 1 day prior to surgery and continue until gone (do not exceed 4 weeks). 07/13/19 23 023 Inactive carvedilol 25 mg tablet RxNorm: 947102 2 Tablet(s) Oral BID 07/13/19 23 023 Inactive Humulin R Regular U-100 Insulin 100 unit/mL injection solution RxNorm: 915636 85 Unit(s) Injection TID 07/13/19 23 023 Inactive ketorolac 0.5 % eye drops RxNorm: 419840 Instill 1 Drop(s) as directed QID Instill 1 drop into affected eye(s) 4 times daily starting 1 day prior to surgery and continue until gone (do not exceed 4 weeks). 07/13/19 23 023 Inactive Diflucan 150 mg tablet RxNorm: 357525 Take 1 Tablet(s) Oral QD repeat on day 3 and 6 06/30/19 023 Inactive Accu-Chek Guide test strips RxNorm: Use 1 Test Strip QID Use 1 test strip to monitor blood glucose 4 times daily and as needed. Dx:E11.42. 06/23/19 023 Inactive ok to substitute with any covered alternative test strip dextromethorphan-gu aifenesin 10 mg-100 mg/5 mL oral liquid RxNorm: 359701 Take 10 Milliliter(s) Oral every 4 hours as needed for cough 06/19/19 023 Inactive dextromethorphan-gu aifenesin 10 mg-100 mg/5 mL oral liquid RxNorm: 936384 Take 10 Milliliter(s) Oral every 4 hours as needed for cough 06/19/19 023 Inactive Lyrica 150 mg capsule RxNorm: 488213 Take 1 Capsule(s) Oral QHS every night at bedtime 06/18/19 023 Inactive d/c 100mg dose aripiprazole 15 mg tablet RxNorm: 782016 1/2 TAB (7.5MG) ORALLY DAILY (DX:MAJOR DEPRESSIVE DISORDER) 06/05/19 023 Inactive pregabalin 100 mg capsule RxNorm: 370405 1 Capsule(s) Oral QAM every morning 06/02/19 023 Inactive Banophen 50 mg capsule RxNorm: 2171521 Take 1 Capsule(s) Oral Q6H every 6 hours as needed 05/19/19 23 No Stop Date Active Novolog Flexpen U-100 Insulin aspart 100 unit/mL (3 mL) subcutaneous RxNorm: 1619817 Inject 10 Unit(s) Subcutaneous QHS every night at bedtime with nighttime snack 04/08/20 022 Inactive Novolog Flexpen U-100 Insulin aspart 100 unit/mL (3 mL) subcutaneous RxNorm: 8162175 Inject 42 Unit(s) Subcutaneous TID in addition to sliding scale 04/08/20 022 Inactive d/c 36u albuterol sulfate HFA 90 mcg/actuation aerosol inhaler RxNorm: 0140562 Take 2 Puff(s) Inhalation Q4H every four hours as needed as needed for SOB, cough, or wheezing 04/07/20 030 Active Banophen 50 mg capsule RxNorm: 6413004 Take 1 Capsule(s) Oral Q6H every 6 hours as needed 04/06/20 023 Inactive diphenhydramine 50 mg tablet RxNorm: 6359160 Take 1 Tablet(s) Oral Q6H every 6 hours as needed 04/06/20 022 Inactive diphenhydramine 50 mg tablet RxNorm: 3172198 1 Tablet(s) Oral Q6H every 6 hours as needed 04/06/20 022 Inactive Abilify 15 mg tablet RxNorm: 595977 1/2 Tablet(s) Oral QD 03/10/20 023 Inactive Shingrix (PF) 50 mcg/0.5 mL intramuscular suspension, kit RxNorm: 2141301 Administer 1/2 Milliliter(s) Intramuscular QD one time shingrix step 2 ( step 1 given 11/04/21) WITH needle - Nursing please administer upon arrival and once administered post a bridge message with date of administration, market development director, expiration date, and lot# so we can update [facility] 02/18/20 22 022 Inactive dispense with needle Shingrix (PF) 50 mcg/0.5 mL intramuscular suspension, kit RxNorm: 7785266 Administer 1/2 Milliliter(s) Intramuscular QD one time shingrix step 2 ( step 1 given 11/04/21) WITH needle - Nursing please administer upon arrival and once administered post a bridge message with date of administration, market development director, expiration date, and lot# so we can update [facility] 02/18/20 22 022 Inactive dispense with needle polyethylene glycol 3350 17 gram/dose oral powder RxNorm: 197638 Take 17=1 capful Gram(s) Oral QD mix with 4-8oz of liquid 01/08/20 22 023 Inactive take this in addition to BID prn order Lyrica 100 mg capsule RxNorm: 626175 Take 1 Capsule(s) Oral QAM every morning 01/08/20 22 022 Inactive d/c 50mg dose acetaminophen 500 mg tablet RxNorm: 059837 Take 1 Tablet(s) Oral TID 01/08/20 22 022 Inactive d/c PRN order Lyrica 150 mg capsule RxNorm: 269754 Take 1 Capsule(s) Oral QHS every night at bedtime 01/08/20 22 023 Inactive d/c 100mg dose Abilify 5 mg tablet RxNorm: 438522 Take 1 Tablet(s) Oral QD take 1 tab po QD #30 refill 5 dx: MDD 12/12/19 22 022 Inactive Abilify 5 mg tablet RxNorm: 377425 Take 1 Tablet(s) Oral QD take 1 tab po QD #30 refill 5 dx: MDD 12/12/19 22 022 Inactive Novolog Flexpen U-100 Insulin aspart 100 unit/mL (3 mL) subcutaneous RxNorm: 5859295 Inject 42 Unit(s) Subcutaneous TID in addition to sliding scale 12/10/19 22 022 Inactive d/c 36u chlorthalidone 25 mg tablet RxNorm: 490658 Take 1 Tablet(s) Oral QAM every morning 12/10/19 22 023 Inactive pregabalin 50 mg capsule RxNorm: 690473 Take 1 Capsule(s) Oral QAM every morning 11/12/19 22 022 Inactive tetanus-diphtheria toxoids-Td 2 Lf unit-2 Lf unit/0.5 mL IM suspension RxNorm: 139 Take 0.5 Miscellaneous Intramuscular 11/12/19 22 022 Inactive need tdap - nursing to administer upon arrival pregabalin 50 mg capsule RxNorm: 740001 Take 1 Capsule(s) Oral QAM every morning 10/16/19 22 022 Inactive pregabalin 50 mg capsule RxNorm: 331968 Take 1 Capsule(s) Oral QAM every morning 10/16/19 22 022 Inactive pregabalin 50 mg capsule RxNorm: 469316 1 Capsule(s) Oral QAM every morning 10/15/19 22 022 Inactive Shingrix (PF) 50 mcg/0.5 mL intramuscular suspension, kit RxNorm: 2135512 Administer 1/2 Milliliter(s) Intramuscular one time Nursing please administer upon arrival and once administered post a bridge message with date of administration, market development director, expiration date, and lot# so we can update [facility]. 10/09/19 22 022 Inactive shingrix step 1 Shingrix (PF) 50 mcg/0.5 mL intramuscular suspension, kit RxNorm: 2003706 Administer 1/2 Milliliter(s) Intramuscular one time Nursing please administer upon arrival and once administered post a bridge message with date of administration, market development director, expiration date, and lot# so we can update [facility]. 10/09/19 22 022 Inactive shingrix step 1 cholecalciferol (vitamin D3) 1,250 mcg (50,000 unit) capsule RxNorm: 714206 Take 1 Capsule(s) Oral QW once a [...] aspart 100 unit/mL (3 mL) subcutaneous RxNorm: 7081173 Inject 10 Unit(s) Subcutaneous QHS every night at bedtime with nighttime snack 10/08/19 22 022 Inactive Shingrix (PF) 50 mcg/0.5 mL intramuscular suspension, kit RxNorm: 3523320 ADMINISTER 2-DOSE SERIES PER CDC GUIDELINES 10/08/19 22 022 Active Shingrix (PF) 50 mcg/0.5 mL intramuscular suspension, kit RxNorm: 0392725 ADMINISTER 2-DOSE SERIES PER CDC GUIDELINES 10/08/19 22 022 Inactive Novolog Flexpen U-100 Insulin aspart 100 unit/mL (3 mL) subcutaneous RxNorm: 5733396 Inject 36 Unit(s) Subcutaneous TID in addition to sliding scale 10/08/19 Inactive Novofine Autocover 30 gauge x 1/3 needle RxNorm: Use 1 Miscellaneous UD as directed Use 1 needle as directed to administer insulin 5 times a day Dx:E11.42. 10/03/19 22 Inactive ok to substitute with any covered alternative pen needle benzoyl peroxide 10 % topical cleanser RxNorm: 426067 Apply 1 Application Topical QD apply to face, wash rinse and dry once daily (may change to QOD if drying) 08/19/19 022 Inactive (%covered by insurance) #60ml refill 11 dx: acne benzoyl peroxide 10 % topical cleanser RxNorm: 690050 Apply 1 Application Topical QD apply to face, wash rinse and dry once daily (may change to QOD if drying) 08/19/19 022 Inactive (%covered by insurance) #60ml refill 11 dx: acne benzoyl peroxide 10 % topical cleanser RxNorm: 887819 Apply 1 Application Topical QD apply to face, wash rinse and dry once daily (may change to QOD if drying) 08/19/19 022 Inactive (%covered by insurance) #60ml refill 11 dx: acne Lyrica 50 mg capsule RxNorm: 570044 Take 1 Capsule(s) Oral QAM every morning Take 1 capsule by mouth once daily 08/19/19 022 Inactive benzoyl peroxide 10 % topical cleanser RxNorm: 968467 Apply 1 Application Topical QD apply to face, wash rinse and dry once daily (may change to QOD if drying) 08/19/19 022 Inactive (%covered by insurance) #60ml refill 11 dx: acne Lyrica 100 mg capsule RxNorm: 072521 Take 1 Capsule(s) Oral QHS every night at bedtime Take 1 capsule by mouth once daily at bedtime 08/19/19 22 022 Inactive Lyrica 100 mg capsule RxNorm: 396785 Take 1 Capsule(s) Oral QHS every night at bedtime Take 1 capsule by mouth once daily at bedtime 08/16/19 22 022 Inactive Lyrica 50 mg capsule RxNorm: 267912 Take 1 Capsule(s) Oral QAM every morning Take 1 capsule by mouth once daily 08/16/19 22 022 Inactive Levemir FlexTouch U-100 Insulin 100 unit/mL (3 mL) subcutaneous pen RxNorm: 743209 Inject 86 Unit(s) Subcutaneous BID 08/05/19 22 022 Inactive d/c 83units BID Lyrica 100 mg capsule RxNorm: 713799 Take 1 Capsule(s) Oral QHS every night at bedtime Take 1 capsule by mouth once daily at bedtime 07/14/19 22 022 Inactive Lyrica 50 mg capsule RxNorm: 822569 Take 1 Capsule(s) Oral QAM every morning Take 1 capsule by mouth once daily 07/14/19 22 022 Inactive Levemir FlexTouch U-100 Insulin 100 unit/mL (3 mL) subcutaneous pen RxNorm: 634228 Inject 83 Unit(s) Subcutaneous BID 07/08/19 22 [...] test strip hydralazine 50 mg tablet RxNorm: 114868 Take 1 Tablet(s) Oral QID 05/05/20 21 022 Inactive venlafaxine ER 225 mg tablet,extended release 24 hr RxNorm: 500338 Take 1 Tablet(s) Oral QD 05/05/20 21 021 Inactive venlafaxine ER 225 mg tablet,extended release 24 hr RxNorm: 340563 Take 1 Tablet(s) Oral QD 05/05/20 022 Inactive isosorbide mononitrate ER 30 mg tablet,extended release 24 hr RxNorm: 132896 Take 1 Tablet(s) Oral QD 05/05/20 024 Inactive hydralazine 50 mg tablet RxNorm: 237783 Take 1 Tablet(s) Oral QID 05/05/20 21 Inactive aspirin 81 mg tablet,delayed release RxNorm: 034883 Take 1 Tablet(s) Oral QD 03/31/20 022 Inactive Vitamin D2 1,250 mcg (50,000 unit) capsule RxNorm: 0861059 Take 1 Capsule(s) Oral QW once a week x 12 weeks 03/31/20 022 Inactive Vitamin D2 1,250 mcg (50,000 unit) capsule RxNorm: 0677172 Take 1 Capsule(s) Oral QW once a week 03/31/20 021 Inactive Zetia 10 mg tablet RxNorm: 822349 Take 1 Tablet(s) Oral QD 03/31/20 21 024 Inactive Zetia 10 mg tablet RxNorm: 177208 Take 1 Tablet(s) Oral QD 03/31/20 21 021 Inactive hydralazine 25 mg tablet RxNorm: 938515 Take 1 Tablet(s) Oral QID 03/31/20 21 021 Inactive hydralazine 25 mg tablet RxNorm: 531813 Take 1 Tablet(s) Oral QID 03/31/20 021 Inactive hydralazine 10 mg tablet RxNorm: 316622 Take 1 Tablet(s) Oral QID 03/03/20 021 Inactive cephalexin 500 mg tablet RxNorm: 279207 Take 1 Tablet(s) Oral QID 02/27/20 021 Inactive cephalexin 500 mg tablet RxNorm: 311793 Take 1 Tablet(s) Oral QID 02/27/20 021 Inactive lisinopril 40 mg tablet RxNorm: 769039 Take 1 Tablet(s) Oral QD 02/11/20 023 Inactive Eliquis 5 mg tablet RxNorm: 9386018 Take 1 Tablet(s) Oral BID 01/05/20 022 Inactive Eliquis 5 mg tablet RxNorm: 2223665 Take 2 Tablet(s) Oral QD 01/01/20 21 021 Inactive Lyrica 50 mg capsule RxNorm: 902547 Take 1 Capsule(s) Oral QAM every morning 12/24/19 021 Inactive Lyrica 100 mg capsule RxNorm: 105186 Take 1 Capsule(s) Oral QHS every night at bedtime 12/24/19 021 Inactive clotrimazole 1 % topical cream RxNorm: 462333 Apply to right foot and toes Topical BID 12/04/19 21 023 Inactive metoprolol succinate ER 200 mg tablet,extended release 24 hr RxNorm: 870350 Take 1 Tablet(s) Oral QD 12/04/19 21 023 Inactive ciprofloxacin 500 mg tablet RxNorm: 746193 Take 1 Tablet(s) Oral QD 11/30/19 21 021 Inactive DX ofloxacin otic drops Accu-Chek Guide test strips RxNorm: USE 1 TO CHECK GLUCOSE 4 TIMES DAILY AND NEEDED 11/15/19 21 023 Inactive Blood Glucose Test strips RxNorm: Use 1 Test Strip QID at PRN 11/05/19 21 023 Inactive E11.42 lisinopril 30 mg tablet RxNorm: 946681 Take 1 Tablet(s) Oral QD 10/30/19 21 021 Inactive lisinopril 20 mg tablet RxNorm: 234672 Take 1 Tablet(s) Oral QD 10/23/19 021 Inactive lisinopril 20 mg tablet RxNorm: 088826 Take 1 Tablet(s) Oral QD 10/23/19 21 021 Inactive lisinopril 10 mg tablet RxNorm: 373523 Take 1 Tablet(s) Oral QD 10/02/19 021 Inactive icosapent ethyl 1 gram capsule RxNorm: 5703542 Take 2 Capsule(s) (2 gm) Oral BID with meals 09/12/19 21 024 Inactive Okay to dispense one 2gm tab if you have that available. icosapent ethyl 1 gram capsule RxNorm: 4002243 Take 2 Capsule(s) Oral BID 09/12/19 21 021 Inactive Okay to dispense one 2gm tab if you have that available. amlodipine 10 mg tablet RxNorm: 653950 Take 1 Tablet(s) Oral QD 09/04/19 21 022 Inactive aspirin 81 mg tablet,delayed release RxNorm: 443405 Take 1 Tablet(s) Oral QD 09/04/19 021 Inactive Levemir FlexTouch U-100 Insulin 100 unit/mL (3 mL) subcutaneous pen RxNorm: 325791 Inject 150 Unit(s) Subcutaneous BID 09/04/19 21 022 Inactive venlafaxine ER 150 mg tablet,extended release 24 hr RxNorm: 305524 Take 1 Tablet(s) Oral QD 09/04/19 21 021 Inactive clotrimazole-betame thasone 1 %-0.05 % topical cream RxNorm: 371323 Apply to rash on red area on left abdomen/chest Topical BID 08/10/19 21 021 Inactive amlodipine 5 mg tablet RxNorm: 845754 Take 1 Tablet(s) Oral QD 07/31/19 021 Inactive cephalexin 500 mg tablet RxNorm: 656204 Take 1 Tablet(s) Oral BID BID - Twice Daily 07/31/19 021 Inactive Start 08/01/20 pantoprazole 40 mg tablet,delayed release RxNorm: 770870 Take 1 Tablet(s) Oral QAM every morning 07/08/19 022 Inactive senna 8.6 mg tablet RxNorm: 333306 Take 1 Tablet(s) Oral QD 07/08/19 022 Inactive carbamazepine 200 mg tablet RxNorm: 815984 Take 1 Tablet(s) Oral BID 07/08/19 Inactive clopidogrel 75 mg tablet RxNorm: 068010 Take 1 Tablet(s) Oral QD 07/08/19 021 Inactive Blood Glucose Test strips RxNorm: Use 1 Test Strip QID at PRN 07/08/19 Inactive E11.42 Novolog Flexpen U-100 Insulin aspart 100 unit/mL (3 mL) subcutaneous RxNorm: 3413571 Administer per sliding scale Milliliter(s) Subcutaneous TID 151-200: 10 u; 201-250: 20 u; 251-300: 30 u; 301-350: 40 u; 351-400: 50 u. 07/08/19 Inactive lisinopril 5 mg tablet RxNorm: 861207 Take 1 Tablet(s) Oral QD 07/08/19 021 Inactive Novolog Flexpen U-100 Insulin aspart 100 unit/mL (3 mL) subcutaneous RxNorm: 6604665 Inject 85 Unit(s) Subcutaneous TID 07/08/19 022 Inactive pravastatin 80 mg tablet RxNorm: 410825 Take 1 Tablet(s) Oral QHS every night at bedtime 07/08/19 023 Inactive clotrimazole 1 % topical cream RxNorm: 694130 Apply to bilateral groin areas Topical BID 07/08/19 022 Inactive metoprolol succinate ER 200 mg tablet,extended release 24 hr RxNorm: 407805 Take 1 Tablet(s) Oral QD 07/08/19 021 Inactive Vitamin D3 25 mcg (1,000 unit) tablet RxNorm: 830519 Take 1 Tablet(s) Oral QD 07/08/19 Inactive isosorbide dinitrate 30 mg tablet RxNorm: 488315 Take 1 Tablet(s) Oral QD 07/08/19 021 Inactive Levemir FlexTouch U-100 Insulin 100 unit/mL (3 mL) subcutaneous pen RxNorm: 129084 Inject 140 Unit(s) Subcutaneous BID 07/08/19 021 Inactive torsemide 20 mg tablet RxNorm: 516382 Take 1 Tablet(s) Oral QD 07/08/19 023 Inactive venlafaxine 75 mg tablet RxNorm: 393916 Take 1 Tablet(s) Oral QD 07/08/19 021 Inactive acetaminophen 500 mg tablet RxNorm: 834372 Take 1 Tablet(s) Oral TID as needed for headache 06/18/19 021 Inactive acetaminophen 500 mg tablet RxNorm: 752913 Take 1 Tablet(s) Oral TID as needed for headache 06/18/19 021 Inactive Lyrica 100 mg capsule RxNorm: 471453 Take 1 Capsule(s) Oral QHS every night at bedtime 06/11/19 021 Inactive Lyrica 50 mg capsule RxNorm: 752331 Take 1 Capsule(s) Oral QAM every morning 06/10/19 021 Inactive hydrocortisone 2.5 % topical cream RxNorm: 662821 Apply to bilateral groin creases Topical BID 05/15/20 20 021 Inactive clotrimazole 1 % topical cream RxNorm: 389836 Apply to bilateral groin areas Topical BID 05/15/20 20 021 Inactive Lyrica 50 mg capsule RxNorm: 143495 Take 1 Capsule(s) Oral QAM every morning 05/14/20 20 020 Inactive Lyrica 100 mg capsule RxNorm: 688081 Take 1 Capsule(s) Oral QHS every night [...] Inactive Nystop 100,000 unit/gram topical powder RxNorm: 539701 Apply to abd folds, under breasts and L side of groin Topical BID x 14 days, then BID PRN 04/08/20 20 Inactive dx: yeast dermatitis Lyrica 100 mg capsule RxNorm: 983434 Take 1 Capsule(s) Oral QHS every night at bedtime 03/13/20 20 Inactive Lyrica 50 mg capsule RxNorm: 239295 Take 1 Capsule(s) Oral QAM every morning 03/13/20 20 Inactive ketoconazole 2 % shampoo RxNorm: 557210 Apply Topical two times a week with showers 03/11/20 20 Inactive cholecalciferol (vitamin D3) 50 mcg (2,000 unit) tablet RxNorm: 314316 Take 1 Tablet(s) Oral QD 03/11/20 20 021 Inactive Zetia 10 mg tablet RxNorm: 195898 Take 1 Tablet(s) Oral QD 03/07/20 20 021 Inactive Zetia 10 mg tablet RxNorm: 831208 Take 1 Tablet(s) Oral QD 03/07/20 20 Inactive Lyrica 50 mg capsule RxNorm: 561936 Take 1 Capsule(s) Oral QAM every morning 02/15/20 Inactive Lyrica 100 mg capsule RxNorm: 000898 Take 1 Capsule(s) Oral QHS every night at bedtime 02/15/20 Inactive Lyrica 100 mg capsule RxNorm: 287388 Take 1 Capsule(s) Oral QHS every night at bedtime 02/15/20 Inactive Lyrica 50 mg capsule RxNorm: 617462 Take 1 Capsule(s) Oral QAM every morning 02/15/20 Inactive metoprolol succinate ER 200 mg tablet,extended release 24 hr RxNorm: 547577 Take 1 Tablet(s) Oral QD 08/11 Activeloperamide 2 mg capsuleRxNorm: 615945Tfxv 1 Capsule(s) Oral QID as needed 06/12/2021ctivehydralazine 50 mg tabletRxNorm: 316888Kjws 1 Tablet(s) Oral QID 08/11/2022ctiveSoft Touch LancetsRxNorm:lfzmnxzscfhzi40/19/2024ctive venlafaxine ER 75 mg capsule,extended release 24 hrRxNorm: 643984Rjws 3 Capsule(s) Oral QD/Inactivepolyethylene glycol 3350 17 gram/dose oral powderRxNorm: 433848Zsqc 17=1 capful Gram(s) Oral BID as needed mix with 4-8oz of oqwlav51/Inactiveicosapent ethyl 1 gram capsuleRxNorm: 0188786Vrrf 2 Capsule(s) (2 gm) Oral BID with meals10/06/2022 10/05/2022InactiveOkay to dispense one 2gm tab if you have that available. Levemir FlexTouch U-100 Insulin 100 unit/mL (3 mL) subcutaneous penRxNorm: 839531Achycs 80 Unit(s) Subcutaneous BID/InactiveNovolog Flexpen U-100 Insulin aspart 100 unit/mL (3 mL) subcutaneousRxNorm: 6756394 Insert 30 Unit(s) Subcutaneous TID with meals/Inactive [...] Codes Status Date Referral: [facility] WPtel: [address], [address] [id number] USReferralRecords Ctqmrhol30/08/2023Referral: [facility] WPtel: [address] [id number]/12/2022Referral: General CardiologyReferralCompleted 1Referral: General PsychologistReferralClosedReferral: General PsychiatristReferralPatient/Family [...] Sister Jyotsna involved in his care cell# [phone] Guardian: Don (tapan met in person 09/01/21), [...] note from 11.08.2023 at [facility] (follow up 6 months)Colon & Rectal Surgery visit scheduled for 03/08/24 with Matilde Pérez PA-C. 02/08/2024
--- OUTSIDE RECORDS SUMMARY | 2024-03-06 06:33 | XMS_ITS | CCD ---
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 Data Officer Name Role Phone Arpit MCKINLEY-CHarrison Primary Care Provider Leona vailable Miller [employer]OLOG[employer] INSTRUCTOR-C, [facility] U navailable Summary Purpose DataExchange Insurance Providers Payer name Policy type / Coverage type Covered libertarian ID Effective Begin Date Effective End Date [place] [id number] Unknown Unknown [place] B [id number] Unknown Unknown Family history Sister Brittany Suggs Diagnosis Age At Onset No Family Disease Entered N/A Runs in the family Diagnosis Age At Onset No Known Diseases N/A Sister Blanka Mcduffie Diagnosis Age At Onset No Family Disease Entered N/A Social History Social History Element Codes Description Effec tive Dates Tobacco history SNOMED CT: 483329744 Never smoker 01/16 Sexually Active? 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.20 ICD-9: 344.110/ctive(R53.81) Physical deconditioningICD-10: R53.81 ICD-9: 799.310/ctive(Z68.44) BMI 60.0-69.9, adultICD-10: Z68.44 ICD-9: V85.4410ctiveAdvanced care planning - to document end of life [id number] care planningICD-10: Z71.89 ICD-9: V65.4909ctiveAmputated toe of right footICD-10: S98.131A ICD-9: 895.009/ctiveAnnual physical examICD-10: Z00.00 ICD-9: V70.009ctiveCandidal intertrigoICD-10: B37.2 ICD-9: 112.309/ctiveConstipation by delayed colonic transitICD-10: K59.01 ICD-9: 564.0109ctiveDiabetic neuropathy associated with type 2 diabetes mellitusICD-10: E11.40 ICD-9: 250.6009/ctiveHistory of anemia due to CKDICD-10: N18.9 ICD-9: 585.909ctiveHx of deep venous thrombosisICD-10: Z86.718 ICD-9: V12.5109/ctiveHypercoagulable stateICD-10: D68.59 ICD-9: 289.8109ctiveHyperlipidemia associated with type 2 diabetes mellitusICD-10: E11.69 ICD-9: 250.8009/ctiveHypertensive heart disease without heart failure ICD-10: I11.9 ICD-9: 402.9009/ctiveHypokalemiaICD-10: E87.6 ICD-9: 276.809/24/2024ActiveLearning disabilityICD-10: F81.9 ICD-9: 315.209/ctiveLow back painICD-10: M54.50 ICD-9: 724.209/ctiveLower extremity edemaICD-10: R60.0 ICD-9: 782.309/ctiveMajor depression, recurrentICD-10: F33.9 ICD-9: 296.3009/ctiveOnychogryposisICD-10: L60.2 ICD-9: 703.809/ctivePressure ulcer of left calf, unstageableICD-10: L89.890 ICD-9: 707.0909/ctivePVD (peripheral vascular disease)ICD-10: I73.9 ICD-9: 443.909/ctiveReducible umbilical herniaICD-10: K42.9 ICD-9: 553.109/ctiveSeizure disorderICD-10: G40.909 ICD-9: 345.9009/ctiveStage 2 chronic 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ICD-10: E11.22 ICD-9: 250.4009/ctiveType 2 diabetes mellitus with diabetic polyneuropathy, with long-term current use of insulinICD-10: E11.42 ICD-9: 250.6009/ctiveVitamin D deficiencyICD-10: E55.9 ICD-9: 268.909/ctiveCallus of heelICD-10: L84 ICD-9: 68809/esolvedGout due to renal impairmentICD-10: M10.30 ICD-9: 274.1005esolvedHyperhidrosis of palmsICD-10: L74.512 ICD-9: 705.21010/12/2023esolvedHyperlipidemia, unspecifiedICD-10: E78.5 ICD-9: 272.405/4ResolvedOther usp (current) drug therapyICD-10: Z79.899 ICD-9: V58.6905esolvedPain of right heelICD-10: M79.671 ICD-9: 729.505/esolvedStage 2 chronic kidney diseaseICD-10: N18.2 ICD-9: 585.205esolvedTinea pedis of both feetICD-10: B35.3 ICD-9: 110.405/esolvedRecurrent major depressive disorder, in partial remissionICD-10: F33.41 ICD-9: 296.3504/ctiveCellulitisICD-10: L03.90 ICD-9: 682.904esolvedDandruff in adultICD-10: L21.0 ICD-9: 690.1804esolvedEncounter for other specified special examinationsICD-10: Z01.89 ICD-9: V72.8504esolvedEncounter for screening for nutritional disorder ICD-10: Z13.21 ICD-9: V77.9904esolvedImpacted cerumen, left earICD-10: H61.22 ICD-9: 380.404esolvedShortness of breathICD-10: R06.02 ICD-9: 786.0504esolvedSkin tagICD-10: L91.8 ICD-9: 701.904esolvedCoronary artery disease involving [place] coronary artery of [place] heart, angina presence unspecifiedICD-10: I25.10 ICD-9: 414.0102/ctiveInappropriate sexual behaviorICD-10: Z72.89 ICD-9: 312.8910/ctivePre-op evaluationICD-10: Z01.818 ICD-9: V72.8403/ctiveSecondary hypertensionICD-10: I15.9 ICD-9: 405.9903/ctiveDepressionICD-10: F32.9 ICD-9: 18153/esolvedDVT (deep venous thrombosis)ICD-10: I82.409 ICD-9: 453.4009/2ResolvedEncounter for [...] to other viral communicable diseasesICD-10: Z20.828 ICD-9: V01.7902/6761IecckbddQgtsdfmsZkxxgkj23/28/2020ActiveDiabetes mellitus Type 5Wtjixfd84/28/2020ActiveAnemia in chronic kidney diseaseICD-10: D63.1 02/12/2020ResolvedHyperlipidemia, unspecifiedICD-10: E78.509Resolved Medications Medication Codes Instructions Start Date Stop Date Status Fill Instructions Accu-Chek Guide test strips RxNorm: Use 1 Test Strip QID And PRN-- also dispense Soft Touch Lancets (QID and PRN) to be use with new Accu [place] meter 03/04/20 24 04/02/ 024 Active ok to substitute with any covered alternative test strip Accu-Chek Guide Glucose Meter RxNorm: Use 1 Miscellaneous UD as directed Use glucose meter to monitor blood glucose 4 times daily and as needed. Dx:E11.42 03/04/20 Inactive nystatin 100,000 unit/gram topical powder RxNorm: 471992 Apply 1 Application Topical BID as needed abdominal/breast /groin folds 03/02/20 24 Active FreeStyle Chema 2 Sensor kit RxNorm: Use UD as directed 03/02/20 Active Lancets,Thin 28 gauge RxNorm: Use 1 as directed QID lancet 03/02/20 025 Active Pen Needle 30 gauge x 5/16 RxNorm: Pen(s) Use 1 needle as directed TID 03/02/20 24 025 Active FreeStyle Chema 2 Sensor kit RxNorm: Use UD as directed 03/02/20 Inactive Pen Needle 30 gauge x 5/16 RxNorm: Pen(s) Use 1 needle as directed TID 03/02/20 Inactive Accu-Chek Guide test strips RxNorm: Use 1 Test Strip QID 03/02/20 24 024 Inactive ok to substitute with any covered alternative test strip Humulin R U-500 (Concentrated) Insulin 500 unit/mL subcutaneous soln RxNorm: 847967 Inject 100 Unit(s) Subcutaneous TID 02/17/20 24 025 Active Basaglar KwikPen U-100 Insulin 100 unit/mL (3 mL) subcutaneous RxNorm: 3869186 Inject 30 Unit(s) Subcutaneous BID 02/10/20 24 024 Active Please dispense one month supply. Humulin R U-500 (Concentrated) Insulin 500 unit/mL subcutaneous soln RxNorm: 889284 Inject 100 Unit(s) Subcutaneous TID 02/10/20 24 024 Inactive pregabalin 100 mg capsule RxNorm: 641932 Take 1 Capsule(s) Oral QAM every morning 02/07/20 24 024 Active isosorbide mononitrate ER 60 mg tablet,extended release 24 hr RxNorm: 260963 Take 1 Tablet(s) Oral QD 09/17/ Active aripiprazole 15 mg tablet RxNorm: 112425 Take 1/2 Tablet(s) Oral QD 02/01/20 24 Active torsemide 20 mg tablet RxNorm: 358430 1 TAB ORALLY DAILY (DX: EDEMA) 01/27/20 No Stop Date Active potassium chloride ER 20 mEq tablet,extended release(part/cryst) RxNorm: 8269937 2 TABS (40MEQ) ORALLY TWICE DAILY (DX: HYPOKALEMIA) 01/27/20 No Stop Date Active cephalexin 500 mg capsule RxNorm: 012685 Take 1 Capsule(s) Oral QID 12/17/19 24 024 Inactive cephalexin 500 mg capsule RxNorm: 323243 Take 1 Capsule(s) Oral QID 12/17/19 24 Inactive acetaminophen 500 mg tablet RxNorm: 728931 (MAX APAP:4GM/24HR) Take 1 Tablet(s) Oral TID as needed for pain 12/10/19 24 Active torsemide 20 mg tablet RxNorm: 859578 Take 1 Tablet(s) Oral QD 10/26/19 24 024 Inactive potassium chloride ER 20 mEq tablet,extended release RxNorm: 448701 Take 2 Tablet(s) Oral BID 10/26/19 24 Active torsemide 20 mg tablet RxNorm: 664722 Take 1 Tablet(s) Oral QD 10/26/19 24 Inactive potassium chloride ER 20 mEq tablet,extended release RxNorm: 727513 Take 2 Tablet(s) Oral BID 10/26/19 24 Inactive Artificial Tears (PF) 0.1 %-0.3 % drops in a dropperette RxNorm: 421603 Apply 1-2 Drop(s) Both eyes BID as needed 09/28/19 24 Active erythromycin 5 mg/gram (0.5 %) eye ointment RxNorm: 311201 Apply 1 Application Both eyes QHS every night at bedtime Instill ~1 cm ribbon into affected eye 09/28/19 24 Inactive Artificial Tears (PF) 0.1 %-0.3 % drops in a dropperette RxNorm: 472724 Apply 1-2 Drop(s) Both eyes BID as needed 09/28/19 24 Inactive erythromycin 5 mg/gram (0.5 %) eye ointment RxNorm: 159202 Apply 1 Application Both eyes QHS every night at bedtime Instill ~1 cm ribbon into affected eye 09/28/19 24 Inactive acetaminophen 500 mg tablet RxNorm: 459310 (MAX APAP:4GM/24HR) Take 1 Tablet(s) Oral TID as needed for pain 09/24/19 24 Inactive carvedilol 25 mg tablet RxNorm: 347681 Take 1 Tablet(s) Oral QD 09/08/19 24 No Stop Date Active pregabalin 100 mg capsule RxNorm: 674798 Take 1 Capsule(s) Oral QAM every morning 09/07/19 24 Inactive rosuvastatin 40 mg tablet RxNorm: 726736 Take 1 Tablet(s) Oral QPM every evening 07/13/19 24 No Stop Date Active ezetimibe 10 mg tablet RxNorm: 430746 Take 1 Tablet(s) Oral QD 07/13/19 24 No Stop Date Active bisacodyl 10 mg rectal suppository RxNorm: 328235 Insert 1 Suppository Rectal QD as needed 07/13/19 24 No Stop Date Active polyethylene glycol 3350 17 gram/dose oral powder RxNorm: 285080 Take 17 Gram(s) Oral BID as needed mix in 4-8ox water 07/13/19 24 No Stop Date Active ketoconazole 2 % shampoo RxNorm: 315248 Apply 1 Application Topical UD as directed 07/13/19 24 No Stop Date Active Ozempic 1 mg/dose (4 mg/3 mL) subcutaneous pen injector RxNorm: 8250588 Inject 1 Milligram(s) Subcutaneous QW once a week 07/13/19 24 No Stop Date Active Guaifenesin AC 10 mg-100 mg/5 mL oral liquid RxNorm: 523209 Take 10 Milliliter(s) Oral Q4H every four hours as needed 07/13/19 24 No Stop Date Active ammonium lactate 12 % topical cream RxNorm: 937972 Apply 1 Application Topical BID 07/13/19 24 No Stop Date Active hydrocortisone 2.5 % topical cream RxNorm: 996867 Apply 1 Application Topical BID as needed 07/13/19 24 No Stop Date Active rosuvastatin 20 mg sprinkle capsule RxNorm: 0834863 Take 1 Capsule(s) Oral QD 07/13/19 24 No Stop Date Active Vascepa 1 gram capsule RxNorm: 6735295 Take 2 Capsule(s) Oral BID 07/13/19 24 No Stop Date Active venlafaxine ER 75 mg capsule,extended release 24 hr RxNorm: 093533 Take 3 Capsule(s) Oral QD 07/13/19 24 No Stop Date Active aripiprazole 15 mg tablet RxNorm: 219155 Take 1/2 Tablet(s) Oral QD 07/13/19 24 024 Inactive isosorbide mononitrate ER 60 mg tablet,extended release 24 hr RxNorm: 919001 Take 1 Tablet(s) Oral QD 07/13/19 24 024 Inactive Basaglar KwikPen U-100 Insulin 100 unit/mL (3 mL) subcutaneous RxNorm: 9328169 Inject 30U SubQ twice daily 07/07/19 24 024 Inactive Please dispense one month supply. Basaglar KwikPen U-100 Insulin 100 unit/mL (3 mL) subcutaneous RxNorm: 0396848 Inject 30U SubQ twice daily 07/07/19 24 024 Inactive Please dispense one month supply. pregabalin 150 mg capsule RxNorm: 991744 Take 1 Capsule(s) Oral QHS every night at bedtime 07/05/19 24 024 Inactive pregabalin 150 mg capsule RxNorm: 417832 Take 1 Capsule(s) Oral QHS every night at bedtime 07/05/19 24 024 Inactive polyethylene glycol 3350 17 gram/dose oral powder RxNorm: 756136 Take 1 Packet Oral QD as needed (1 packet = 17g) mix with 4-8oz of liquid 06/15/19 24 024 Inactive bisacodyl 10 mg rectal suppository RxNorm: 313355 Insert one suppository per rectum once daily as needed for constipation 06/15/19 24 024 Inactive bisacodyl 10 mg rectal suppository RxNorm: 727536 Insert one suppository per rectum once daily as needed for constipation 06/15/19 024 Inactive pregabalin 100 mg capsule RxNorm: 669499 Take 1 Capsule(s) Oral QAM every morning 04/27/20 024 Inactive Levemir FlexPen 100 unit/mL (3 mL) solution subcutaneous insulin pen RxNorm: 969879 Inject 30 Unit(s) Subcutaneous BID 04/27/20 024 Inactive rosuvastatin 40 mg tablet RxNorm: 997098 Take 1 Tablet(s) Oral QPM every evening 04/16/20 024 Inactive D/C rosuvastatin 20mg venlafaxine ER 75 mg capsule,extended release 24 hr RxNorm: 306378 Take 3 Capsule(s) Oral QD 04/14/20 023 Inactive pregabalin 100 mg capsule RxNorm: 021438 Take 1 Capsule(s) Oral QAM every morning [...] strip clotrimazole 1 % topical cream RxNorm: 801684 Take apply topically to abdominal folds twice daily for 14 days 03/12/20 024 Inactive Ozempic 1 mg/dose (4 mg/3 mL) subcutaneous pen injector RxNorm: 6104806 Inject 1 Milligram(s) Subcutaneous QW once a week 03/11/20 023 Inactive rosuvastatin 20 mg tablet RxNorm: 800593 Take 1 Tablet(s) Oral QD 02/26/20 23 023 Inactive d/c pravastatin 80mg Ozempic 1 mg/dose (4 mg/3 mL) subcutaneous pen injector RxNorm: 7780749 Inject 1 Milligram(s) Subcutaneous QW once a week 02/20/20 23 023 Inactive pregabalin 150 mg capsule RxNorm: 357597 Take 1 Capsule(s) Oral HS at bed time 02/19/20 23 023 Inactive pregabalin 100 mg capsule RxNorm: 765099 Take 1 Capsule(s) Oral QAM every morning 02/18/20 23 023 Inactive venlafaxine ER 75 mg capsule,extended release 24 hr RxNorm: 919353 Take 3 Capsule(s) Oral QD 02/04/20 23 023 Inactive FreeStyle Chema 2 Sensor kit RxNorm: use as directed 02/04/20 023 Inactive FreeStyle Chema 2 Sensor kit RxNorm: use as directed 02/04/20 024 Inactive fluconazole 150 mg tablet RxNorm: 974858 Take 1 Tablet(s) Oral on day 3 and on day 6 02/03/20 024 Inactive chlorthalidone 25 mg tablet RxNorm: 145545 Take 1 Tablet(s) Oral QAM every morning 02/03/20 23 No Stop Date Active venlafaxine ER 150 mg capsule,extended release 24 hr RxNorm: 262049 Take 1 Capsule(s) Oral QD 02/03/20 23 023 Inactive acetaminophen 500 mg tablet RxNorm: 765693 1 TABLET ORALLY 3 TIMES DAILY (MAX APAP:4GM/24HR) 12/15/19 23 023 Inactive clotrimazole 1 % topical cream RxNorm: 107934 apply 1g topically to top of feet and in between toes BID 12/09/19 23 023 Inactive potassium chloride ER 20 mEq tablet,extended release RxNorm: 434791 Take 1 Tablet(s) Oral BID 12/09/19 23 024 Inactive d/c 20mEq once daily (sent from hospital) nystatin 100,000 unit/gram topical powder RxNorm: 622046 APPLY TO AFFECTED AREAS TOPICALLY 2 TIMES DAILY 11/21/19 23 023 Inactive Nystop 100,000 unit/gram topical powder RxNorm: 720017 Apply to abd folds, under breasts and L side of groin Topical BID x 14 days, then BID PRN 11/20/19 23 023 Inactive dx: yeast dermatitis [place] Ultra Strength 4 %-30 %-10 % topical cream RxNorm: 031837 Apply 1 Gram(s) Topical QID PRN to feet and legs for neuropathic pain 11/11/19 23 024 Inactive clotrimazole 1 % topical cream RxNorm: 484438 Apply 1/2 Gram(s) Topical BID Apply to affected areas of groin, periarea, and abdominal topically 2 times daily 11/10/19 23 023 Inactive hydrocortisone 2.5 % topical cream RxNorm: 609271 Apply 1/2 Gram(s) Topical BID as needed 11/10/19 024 Inactive Levemir FlexPen 100 unit/mL (3 mL) solution subcutaneous insulin pen RxNorm: 418004 Inject 30 Unit(s) Subcutaneous BID 10/07/19 023 Inactive Humulin R U-500 (Concentrated) Insulin 500 unit/mL subcutaneous soln RxNorm: 690088 Inject 100 Unit(s) Subcutaneous TID 10/07/19 23 024 Inactive Ozempic 0.25 mg or 0.5 mg (2 mg/3 mL) subcutaneous pen injector RxNorm: 7099689 Inject 1/2 Milligram(s) Subcutaneous QW once a week 10/07/19 23 024 Inactive aripiprazole 15 mg tablet RxNorm: 202291 1/2 TAB (7.5MG) ORALLY DAILY (DX:MAJOR DEPRESSIVE DISORDER) 09/23/19 23 023 Inactive Accu-Chek Guide test strips RxNorm: Use 1 Test Strip QID 09/15/19 23 023 Inactive ok to substitute with any covered alternative test strip Lancets,Thin 28 gauge RxNorm: Use 1 as directed QID 09/15/19 23 023 Inactive torsemide 20 mg tablet RxNorm: 222518 Take 1 Tablet(s) Oral BID 09/09/19 23 024 Inactive d/c once daily dosing carvedilol 25 mg tablet RxNorm: 597328 Take 1 Tablet(s) Oral QD 08/25/19 23 024 Inactive pregabalin 150 mg capsule RxNorm: 900479 1 Capsule(s) Oral HS at bed time 08/18/19 23 023 Inactive pregabalin 100 mg capsule RxNorm: 327390 1 Capsule(s) Oral QAM every morning 08/18/19 23 023 Inactive carvedilol 25 mg tablet RxNorm: 911455 1 Tablet(s) Oral QD 07/28/19 23 023 Inactive lisinopril 20 mg tablet RxNorm: 607419 Give 1 Tablet(s) Oral QD 07/28/19 23 023 Inactive Lyrica 150 mg capsule RxNorm: 134296 Take 1 Capsule(s) Oral QHS every night at bedtime 07/19/19 023 Inactive d/c 100mg dose Diflucan 150 mg tablet RxNorm: 781128 Take 1 Tablet(s) Oral QD repeat on day 3 and 6 07/19/19 23 023 Inactive pregabalin 100 mg capsule RxNorm: 420468 Take 1 Capsule(s) Oral QAM every morning 07/19/19 23 023 Inactive gatifloxacin 0.5 % eye drops RxNorm: 275374 Instill 1 Drop(s) as directed TID Instill 1 drop in to affected eye(s) starting 1 day prior to surgery and continue until gone (do not exceed 4 weeks). 07/13/19 23 023 Inactive carvedilol 25 mg tablet RxNorm: 526847 2 Tablet(s) Oral BID 07/13/19 23 023 Inactive Humulin R Regular U-100 Insulin 100 unit/mL injection solution RxNorm: 832585 85 Unit(s) Injection TID 07/13/19 23 023 Inactive ketorolac 0.5 % eye drops RxNorm: 564604 Instill 1 Drop(s) as directed QID Instill 1 drop into affected eye(s) 4 times daily starting 1 day prior to surgery and continue until gone (do not exceed 4 weeks). 07/13/19 23 023 Inactive Diflucan 150 mg tablet RxNorm: 512025 Take 1 Tablet(s) Oral QD repeat on day 3 and 6 06/30/19 23 023 Inactive Accu-Chek Guide test strips RxNorm: Use 1 Test Strip QID Use 1 test strip to monitor blood glucose 4 times daily and as needed. Dx:E11.42. 06/23/19 23 023 Inactive ok to substitute with any covered alternative test strip dextromethorphan-gu aifenesin 10 mg-100 mg/5 mL oral liquid RxNorm: 520539 Take 10 Milliliter(s) Oral every 4 hours as needed for cough 06/19/19 23 023 Inactive dextromethorphan-gu aifenesin 10 mg-100 mg/5 mL oral liquid RxNorm: 361660 Take 10 Milliliter(s) Oral every 4 hours as needed for cough 06/19/19 023 Inactive Lyrica 150 mg capsule RxNorm: 935282 Take 1 Capsule(s) Oral QHS every night at bedtime 06/18/19 023 Inactive d/c 100mg dose aripiprazole 15 mg tablet RxNorm: 444720 1/2 TAB (7.5MG) ORALLY DAILY (DX:MAJOR DEPRESSIVE DISORDER) 06/05/19 23 023 Inactive pregabalin 100 mg capsule RxNorm: 725453 1 Capsule(s) Oral QAM every morning 06/02/19 23 023 Inactive Banophen 50 mg capsule RxNorm: 4274164 Take 1 Capsule(s) Oral Q6H every 6 hours as needed 05/19/19 23 No Stop Date Active Novolog Flexpen U-100 Insulin aspart 100 unit/mL (3 mL) subcutaneous RxNorm: 1562376 Inject 10 Unit(s) Subcutaneous QHS every night at bedtime with nighttime snack 04/08/20 22 022 Inactive Novolog Flexpen U-100 Insulin aspart 100 unit/mL (3 mL) subcutaneous RxNorm: 4303241 Inject 42 Unit(s) Subcutaneous TID in addition to sliding scale 04/08/20 22 022 Inactive d/c 36u albuterol sulfate HFA 90 mcg/actuation aerosol inhaler RxNorm: 7151282 Take 2 Puff(s) Inhalation Q4H every four hours as needed as needed for SOB, cough, or wheezing 04/07/20 030 Active Banophen 50 mg capsule RxNorm: 3198572 Take 1 Capsule(s) Oral Q6H every 6 hours as needed 04/06/20 023 Inactive diphenhydramine 50 mg tablet RxNorm: 2709268 Take 1 Tablet(s) Oral Q6H every 6 hours as needed 04/06/20 022 Inactive diphenhydramine 50 mg tablet RxNorm: 3196879 1 Tablet(s) Oral Q6H every 6 hours as needed 04/06/20 022 Inactive Abilify 15 mg tablet RxNorm: 063168 1/2 Tablet(s) Oral QD 03/10/20 023 Inactive Shingrix (PF) 50 mcg/0.5 mL intramuscular suspension, kit RxNorm: 6852502 Administer 1/2 Milliliter(s) Intramuscular QD one time shingrix step 2 ( step 1 given 11/04/21) WITH needle - Nursing please administer upon arrival and once administered post 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, 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, 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, 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# so we can update [facility] 02/18/20 22 022 Inactive dispense with needle Shingrix (PF) 50 mcg/0.5 mL intramuscular suspension, kit RxNorm: 3030871 Administer 1/2 Milliliter(s) Intramuscular QD one time shingrix step 2 ( step 1 given 11/04/21) WITH needle - Nursing please administer upon arrival and once administered post a 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, 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, 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, 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# so we can update [facility] 02/18/20 22 022 Inactive dispense with needle polyethylene glycol 3350 17 gram/dose oral powder RxNorm: 251645 Take 17=1 capful Gram(s) Oral QD mix with 4-8oz of liquid 01/08/20 22 023 Inactive take this in addition to BID prn order Lyrica 100 mg capsule RxNorm: 907554 Take 1 Capsule(s) Oral QAM every morning 01/08/20 22 022 Inactive d/c 50mg dose acetaminophen 500 mg tablet RxNorm: 160997 Take 1 Tablet(s) Oral TID 01/08/20 22 022 Inactive d/c PRN order Lyrica 150 mg capsule RxNorm: 244545 Take 1 Capsule(s) Oral QHS every night at bedtime 01/08/20 22 023 Inactive d/c 100mg dose Abilify 5 mg tablet RxNorm: 375988 Take 1 Tablet(s) Oral QD take 1 tab po QD #30 refill 5 dx: MDD 12/12/19 22 022 Inactive Abilify 5 mg tablet RxNorm: 638686 Take 1 Tablet(s) Oral QD take 1 tab po QD #30 refill 5 dx: MDD 12/12/19 22 022 Inactive Novolog Flexpen U-100 Insulin aspart 100 unit/mL (3 mL) subcutaneous RxNorm: 8749941 Inject 42 Unit(s) Subcutaneous TID in addition to sliding scale 12/10/19 22 022 Inactive d/c 36u chlorthalidone 25 mg tablet RxNorm: 499974 Take 1 Tablet(s) Oral QAM every morning 12/10/19 22 023 Inactive pregabalin 50 mg capsule RxNorm: 189649 Take 1 Capsule(s) Oral QAM every morning 11/12/19 Inactive tetanus-diphtheria toxoids-Td 2 Lf unit-2 Lf unit/0.5 mL IM suspension RxNorm: 139 Take 0.5 Miscellaneous Intramuscular 11/12/19 22 022 Inactive need tdap - nursing to administer upon arrival pregabalin 50 mg capsule RxNorm: 288143 Take 1 Capsule(s) Oral QAM every morning 10/16/19 22 022 Inactive pregabalin 50 mg capsule RxNorm: 620258 Take 1 Capsule(s) Oral QAM every morning 10/16/19 22 022 Inactive pregabalin 50 mg capsule RxNorm: 526366 1 Capsule(s) Oral QAM every morning 10/15/19 22 022 Inactive Shingrix (PF) 50 mcg/0.5 mL intramuscular suspension, kit RxNorm: 0083004 Administer 1/2 Milliliter(s) Intramuscular one time Nursing please administer upon arrival and once administered post a 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 10/09/19 22 022 Inactive shingrix step 1 cholecalciferol (vitamin D3) 1,250 mcg (50,000 unit) capsule RxNorm: 968443 Take 1 Capsule(s) Oral QW once a [...] aspart 100 unit/mL (3 mL) subcutaneous RxNorm: 2663433 Inject 10 Unit(s) Subcutaneous QHS every night at bedtime with nighttime snack 10/08/19 22 022 Inactive Shingrix (PF) 50 mcg/0.5 mL intramuscular suspension, kit RxNorm: 6811212 ADMINISTER 2-DOSE SERIES PER CDC GUIDELINES 10/08/19 22 022 Active Shingrix (PF) 50 mcg/0.5 mL intramuscular suspension, kit RxNorm: 4302601 ADMINISTER 2-DOSE SERIES PER CDC GUIDELINES 10/08/19 22 022 Inactive Novolog Flexpen U-100 Insulin aspart 100 unit/mL (3 mL) subcutaneous RxNorm: 5018535 Inject 36 Unit(s) Subcutaneous TID in addition to sliding scale 10/08/19 Inactive Novofine Autocover 30 gauge x 1/3 needle RxNorm: Use 1 Miscellaneous UD as directed Use 1 needle as directed to administer insulin 5 times a day Dx:E11.42. 10/03/19 22 Inactive ok to substitute with any covered alternative pen needle benzoyl peroxide 10 % topical cleanser RxNorm: 493583 Apply 1 Application Topical QD apply to face, wash rinse and dry once daily (may change to QOD if drying) 08/19/19 22 022 Inactive (%covered by insurance) #60ml refill 11 dx: acne benzoyl peroxide 10 % topical cleanser RxNorm: 673826 Apply 1 Application Topical QD apply to face, wash rinse and dry once daily (may change to QOD if drying) 08/19/19 022 Inactive (%covered by insurance) #60ml refill 11 dx: acne benzoyl peroxide 10 % topical cleanser RxNorm: 888894 Apply 1 Application Topical QD apply to face, wash rinse and dry once daily (may change to QOD if drying) 08/19/19 022 Inactive (%covered by insurance) #60ml refill 11 dx: acne Lyrica 50 mg capsule RxNorm: 074165 Take 1 Capsule(s) Oral QAM every morning Take 1 capsule by mouth once daily 08/19/19 022 Inactive benzoyl peroxide 10 % topical cleanser RxNorm: 458202 Apply 1 Application Topical QD apply to face, wash rinse and dry once daily (may change to QOD if drying) 08/19/19 022 Inactive (%covered by insurance) #60ml refill 11 dx: acne Lyrica 100 mg capsule RxNorm: 226258 Take 1 Capsule(s) Oral QHS every night at bedtime Take 1 capsule by mouth once daily at bedtime 08/19/19 22 022 Inactive Lyrica 100 mg capsule RxNorm: 354912 Take 1 Capsule(s) Oral QHS every night at bedtime Take 1 capsule by mouth once daily at bedtime 08/16/19 22 022 Inactive Lyrica 50 mg capsule RxNorm: 585467 Take 1 Capsule(s) Oral QAM every morning Take 1 capsule by mouth once daily 08/16/19 22 022 Inactive Levemir FlexTouch U-100 Insulin 100 unit/mL (3 mL) subcutaneous pen RxNorm: 045393 Inject 86 Unit(s) Subcutaneous BID 08/05/19 22 022 Inactive d/c 83units BID Lyrica 100 mg capsule RxNorm: 294575 Take 1 Capsule(s) Oral QHS every night at bedtime Take 1 capsule by mouth once daily at bedtime 07/14/19 22 022 Inactive Lyrica 50 mg capsule RxNorm: 373490 Take 1 Capsule(s) Oral QAM every morning Take 1 capsule by mouth once daily 07/14/19 22 022 Inactive Levemir FlexTouch U-100 Insulin 100 unit/mL (3 mL) subcutaneous pen RxNorm: 103024 Inject 83 Unit(s) Subcutaneous BID 07/08/19 22 [...] test strip hydralazine 50 mg tablet RxNorm: 256108 Take 1 Tablet(s) Oral QID 05/05/20 21 022 Inactive venlafaxine ER 225 mg tablet,extended release 24 hr RxNorm: 517695 Take 1 Tablet(s) Oral QD 05/05/20 021 Inactive venlafaxine ER 225 mg tablet,extended release 24 hr RxNorm: 593315 Take 1 Tablet(s) Oral QD 05/05/20 022 Inactive isosorbide mononitrate ER 30 mg tablet,extended release 24 hr RxNorm: 292111 Take 1 Tablet(s) Oral QD 05/05/20 024 Inactive hydralazine 50 mg tablet RxNorm: 224991 Take 1 Tablet(s) Oral QID 05/05/20 21 Inactive aspirin 81 mg tablet,delayed release RxNorm: 169712 Take 1 Tablet(s) Oral QD 03/31/20 022 Inactive Vitamin D2 1,250 mcg (50,000 unit) capsule RxNorm: 3062559 Take 1 Capsule(s) Oral QW once a week x 12 weeks 03/31/20 022 Inactive Vitamin D2 1,250 mcg (50,000 unit) capsule RxNorm: 0114266 Take 1 Capsule(s) Oral QW once a week 03/31/20 021 Inactive Zetia 10 mg tablet RxNorm: 670080 Take 1 Tablet(s) Oral QD 03/31/20 024 Inactive Zetia 10 mg tablet RxNorm: 075072 Take 1 Tablet(s) Oral QD 03/31/20 021 Inactive hydralazine 25 mg tablet RxNorm: 970479 Take 1 Tablet(s) Oral QID 03/31/20 021 Inactive hydralazine 25 mg tablet RxNorm: 355709 Take 1 Tablet(s) Oral QID 03/31/20 021 Inactive hydralazine 10 mg tablet RxNorm: 679073 Take 1 Tablet(s) Oral QID 03/03/20 021 Inactive cephalexin 500 mg tablet RxNorm: 116655 Take 1 Tablet(s) Oral QID 02/27/20 021 Inactive cephalexin 500 mg tablet RxNorm: 347768 Take 1 Tablet(s) Oral QID 02/27/20 021 Inactive lisinopril 40 mg tablet RxNorm: 673384 Take 1 Tablet(s) Oral QD 02/11/20 023 Inactive Eliquis 5 mg tablet RxNorm: 6958493 Take 1 Tablet(s) Oral BID 01/05/20 022 Inactive Eliquis 5 mg tablet RxNorm: 8712379 Take 2 Tablet(s) Oral QD 01/01/20 21 021 Inactive Lyrica 50 mg capsule RxNorm: 740892 Take 1 Capsule(s) Oral QAM every morning 12/24/19 021 Inactive Lyrica 100 mg capsule RxNorm: 014411 Take 1 Capsule(s) Oral QHS every night at bedtime 12/24/19 021 Inactive clotrimazole 1 % topical cream RxNorm: 510350 Apply to right foot and toes Topical BID 12/04/19 21 023 Inactive metoprolol succinate ER 200 mg tablet,extended release 24 hr RxNorm: 829879 Take 1 Tablet(s) Oral QD 12/04/19 21 023 Inactive ciprofloxacin 500 mg tablet RxNorm: 945119 Take 1 Tablet(s) Oral QD 11/30/19 21 021 Inactive DX ofloxacin otic drops Accu-Chek Guide test strips RxNorm: USE 1 TO CHECK GLUCOSE 4 TIMES DAILY AND NEEDED 11/15/19 21 023 Inactive Blood Glucose Test strips RxNorm: Use 1 Test Strip QID at PRN 11/05/19 21 023 Inactive E11.42 lisinopril 30 mg tablet RxNorm: 717018 Take 1 Tablet(s) Oral QD 10/30/19 021 Inactive lisinopril 20 mg tablet RxNorm: 563668 Take 1 Tablet(s) Oral QD 10/23/19 21 021 Inactive lisinopril 20 mg tablet RxNorm: 192359 Take 1 Tablet(s) Oral QD 10/23/19 21 021 Inactive lisinopril 10 mg tablet RxNorm: 442473 Take 1 Tablet(s) Oral QD 10/02/19 21 021 Inactive icosapent ethyl 1 gram capsule RxNorm: 5009165 Take 2 Capsule(s) (2 gm) Oral BID with meals 09/12/19 21 024 Inactive Okay to dispense one 2gm tab if you have that available. icosapent ethyl 1 gram capsule RxNorm: 0133010 Take 2 Capsule(s) Oral BID 09/12/19 21 021 Inactive Okay to dispense one 2gm tab if you have that available. amlodipine 10 mg tablet RxNorm: 375437 Take 1 Tablet(s) Oral QD 09/04/19 21 022 Inactive aspirin 81 mg tablet,delayed release RxNorm: 879331 Take 1 Tablet(s) Oral QD 09/04/19 21 021 Inactive Levemir FlexTouch U-100 Insulin 100 unit/mL (3 mL) subcutaneous pen RxNorm: 716857 Inject 150 Unit(s) Subcutaneous BID 09/04/19 21 022 Inactive venlafaxine ER 150 mg tablet,extended release 24 hr RxNorm: 265137 Take 1 Tablet(s) Oral QD 09/04/19 21 021 Inactive clotrimazole-betame thasone 1 %-0.05 % topical cream RxNorm: 873117 Apply to rash on red area on left abdomen/chest Topical BID 08/10/19 21 Inactive amlodipine 5 mg tablet RxNorm: 692125 Take 1 Tablet(s) Oral QD 07/31/19 21 Inactive cephalexin 500 mg tablet RxNorm: 805428 Take 1 Tablet(s) Oral BID BID - Twice Daily 07/31/19 21 Inactive Start 08/01/20 pantoprazole 40 mg tablet,delayed release RxNorm: 683301 Take 1 Tablet(s) Oral QAM every morning 07/08/19 Inactive senna 8.6 mg tablet RxNorm: 860898 Take 1 Tablet(s) Oral QD 07/08/19 Inactive carbamazepine 200 mg tablet RxNorm: 403340 Take 1 Tablet(s) Oral BID 07/08/19 Inactive clopidogrel 75 mg tablet RxNorm: 914023 Take 1 Tablet(s) Oral QD 07/08/19 Inactive Blood Glucose Test strips RxNorm: Use 1 Test Strip QID at PRN 07/08/19 Inactive E11.42 Novolog Flexpen U-100 Insulin aspart 100 unit/mL (3 mL) subcutaneous RxNorm: 3429786 Administer per sliding scale Milliliter(s) Subcutaneous TID 151-200: 10 u; 201-250: 20 u; 251-300: 30 u; 301-350: 40 u; 351-400: 50 u. 07/08/19 Inactive lisinopril 5 mg tablet RxNorm: 498847 Take 1 Tablet(s) Oral QD 07/08/19 Inactive Novolog Flexpen U-100 Insulin aspart 100 unit/mL (3 mL) subcutaneous RxNorm: 3323611 Inject 85 Unit(s) Subcutaneous TID 07/08/19 Inactive pravastatin 80 mg tablet RxNorm: 026277 Take 1 Tablet(s) Oral QHS every night at bedtime 07/08/19 023 Inactive clotrimazole 1 % topical cream RxNorm: 459102 Apply to bilateral groin areas Topical BID 07/08/19 21 Inactive metoprolol succinate ER 200 mg tablet,extended release 24 hr RxNorm: 014681 Take 1 Tablet(s) Oral QD 07/08/19 021 Inactive Vitamin D3 25 mcg (1,000 unit) tablet RxNorm: 180964 Take 1 Tablet(s) Oral QD 07/08/19 021 Inactive isosorbide dinitrate 30 mg tablet RxNorm: 222812 Take 1 Tablet(s) Oral QD 07/08/19 021 Inactive Levemir FlexTouch U-100 Insulin 100 unit/mL (3 mL) subcutaneous pen RxNorm: 534844 Inject 140 Unit(s) Subcutaneous BID 07/08/19 021 Inactive torsemide 20 mg tablet RxNorm: 918534 Take 1 Tablet(s) Oral QD 07/08/19 023 Inactive venlafaxine 75 mg tablet RxNorm: 621883 Take 1 Tablet(s) Oral QD 07/08/19 021 Inactive acetaminophen 500 mg tablet RxNorm: 956421 Take 1 Tablet(s) Oral TID as needed for headache 06/18/19 021 Inactive acetaminophen 500 mg tablet RxNorm: 087606 Take 1 Tablet(s) Oral TID as needed for headache 06/18/19 021 Inactive Lyrica 100 mg capsule RxNorm: 969372 Take 1 Capsule(s) Oral QHS every night at bedtime 06/11/19 021 Inactive Lyrica 50 mg capsule RxNorm: 400597 Take 1 Capsule(s) Oral QAM every morning 06/10/19 21 021 Inactive hydrocortisone 2.5 % topical cream RxNorm: 940144 Apply to bilateral groin creases Topical BID 05/15/20 20 021 Inactive clotrimazole 1 % topical cream RxNorm: 732392 Apply to bilateral groin areas Topical BID 05/15/20 20 021 Inactive Lyrica 50 mg capsule RxNorm: 140615 Take 1 Capsule(s) Oral QAM every morning 05/14/20 20 020 Inactive Lyrica 100 mg capsule RxNorm: 810405 Take 1 Capsule(s) Oral QHS every night [...] Inactive Nystop 100,000 unit/gram topical powder RxNorm: 186922 Apply to abd folds, under breasts and L side of groin Topical BID x 14 days, then BID PRN 04/08/20 20 Inactive dx: yeast dermatitis Lyrica 100 mg capsule RxNorm: 290903 Take 1 Capsule(s) Oral QHS every night at bedtime 03/13/20 20 Inactive Lyrica 50 mg capsule RxNorm: 506629 Take 1 Capsule(s) Oral QAM every morning 03/13/20 20 Inactive ketoconazole 2 % shampoo RxNorm: 293220 Apply Topical two times a week with showers 03/11/20 20 024 Inactive cholecalciferol (vitamin D3) 50 mcg (2,000 unit) tablet RxNorm: 437775 Take 1 Tablet(s) Oral QD 03/11/20 20 Inactive Zetia 10 mg tablet RxNorm: 070660 Take 1 Tablet(s) Oral QD 03/07/20 20 021 Inactive Zetia 10 mg tablet RxNorm: 496433 Take 1 Tablet(s) Oral QD 03/07/20 20 020 Inactive Lyrica 50 mg capsule RxNorm: 966502 Take 1 Capsule(s) Oral QAM every morning 02/15/20 20 Inactive Lyrica 100 mg capsule RxNorm: 997846 Take 1 Capsule(s) Oral QHS every night at bedtime 02/15/20 20 Inactive Lyrica 100 mg capsule RxNorm: 237029 Take 1 Capsule(s) Oral QHS every night at bedtime 02/15/20 Inactive Lyrica 50 mg capsule RxNorm: 111757 Take 1 Capsule(s) Oral QAM every morning 02/15/20 Inactive metoprolol succinate ER 200 mg tablet,extended release 24 hr RxNorm: 085696 Take 1 Tablet(s) Oral QD 08/11 Activeloperamide 2 mg capsuleRxNorm: 375030Uqxx 1 Capsule(s) Oral QID as needed 06/12/2021ctivehydralazine 50 mg tabletRxNorm: 971482Lqsz 1 Tablet(s) Oral QID 08/11/2022ctiveSoft Touch LancetsRxNorm:ddfcrfhyjveuv88/19/2024ctive venlafaxine ER 75 mg capsule,extended release 24 hrRxNorm: 564994Uahi 3 Capsule(s) Oral QD/Inactivepolyethylene glycol 3350 17 gram/dose oral powderRxNorm: 366004Gexe 17=1 capful Gram(s) Oral BID as needed mix with 4-8oz of gqjgvi78/Inactiveicosapent ethyl 1 gram capsuleRxNorm: 2362743Zizw 2 Capsule(s) (2 gm) Oral BID with meals10/06/2022 10/05/2022InactiveOkay to dispense one 2gm tab if you have that available. Levemir FlexTouch U-100 Insulin 100 unit/mL (3 mL) subcutaneous penRxNorm: 780789Qizsjz 80 Unit(s) Subcutaneous BID/InactiveNovolog Flexpen U-100 Insulin aspart 100 unit/mL (3 mL) subcutaneousRxNorm: 2385256 Insert 30 Unit(s) Subcutaneous TID with mealsInactive Medication [...] of [facility] WPtel: [address], [address] [id number] USReferralRecords Vdkzlqww22/08/2023Referral: [facility] WPtel: [address] [facility] [address] [id number]/12/2022Referral: General CardiologyReferralCompleted 1Referral: General PsychologistReferralClosedReferral: General PsychiatristReferralPatient/Family [...] Sister Jyotsna involved in his care cell# [phone] Guardian: Don (tapan met in person 09/01/21), [...] note from 11.08.2023 at [facility] (follow up 6 months)Colon & Rectal Surgery visit scheduled for 03/08/24 with Matilde Pérez PA-C. 02/08/2024
--- OUTSIDE RECORDS SUMMARY | 2024-03-09 00:40 | XMS_ITS | CCD ---
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, [facility] U navailable Summary Purpose DataExchange Insurance Providers Payer name Policy type / Coverage type Covered libertarian ID Effective Begin Date Effective End Date [place] [id number] Unknown Unknown Medicaid [place] B [id number] Unknown Unknown Family history Sister Brittany Suggs Diagnosis Age At Onset No Family Disease Entered N/A Runs in the family Diagnosis Age At Onset No Known Diseases N/A Sister Blanka Mcduffie Diagnosis Age At Onset No Family Disease Entered N/A Social History Social History Element Codes Description Effec tive Dates Tobacco history SNOMED CT: 807861247 Never smoker 01/16 Sexually Active? Unknown No [...] 10/07/2021 Living arrangements Unknown Jail 09/03/19 [address]: 076660586 No Alcohol Consum ption 09/02/2020 Allergies, Adverse Reactions, Alerts Substance Reaction Codes Entered Date Inactivated Date Status * NO KNOWN FOOD ALLERGIES Pzflxts3807/13/2023No Inactive DateActiveLISINOPRILRxNorm: 3427436No Inactive DateActiveMetformin YUyRutfehu93/28/2020No Inactive DateActive* NO KNOWN ENVIRONMENTAL WPCILAJQTFnairwt26/27/2024No Inactive DateActive Problems Condition Codes Effective Dates Condition St atus (G82.20) Paraparesis of both lower limbs ICD-10: G82.20 ICD-9: 344.110/ctive(R53.81) Physical deconditioningICD-10: R53.81 ICD-9: 799.310/ctive(Z68.44) BMI 60.0-69.9, adultICD-10: Z68.44 ICD-9: V85.4410/ctiveDiabetic neuropathy associated with type 2 diabetes mellitusICD-10: E11.40 ICD-9: 250.6010/ctiveLow back painICD-10: M54.50 ICD-9: 724.210ctivePVD (peripheral vascular disease)ICD-10: I73.9 ICD-9: 443.910/ctiveType 2 diabetes mellitus with diabetic polyneuropathy, with long-term current use of insulinICD-10: E11.42 ICD-9: 250.6010/ctiveAdvanced care planning - to document end of life [id number] care planningICD-10: Z71.89 ICD-9: V65.4909/ctiveAmputated toe of right footICD-10: S98.131A ICD-9: 895.009/ctiveAnnual physical examICD-10: Z00.00 ICD-9: V70.009ctiveCandidal intertrigoICD-10: B37.2 ICD-9: 112.309/ctiveConstipation by delayed colonic transitICD-10: K59.01 ICD-9: 564.0109/ctiveHistory of anemia due to CKDICD-10: N18.9 ICD-9: 585.909/ctiveHx of deep venous thrombosisICD-10: Z86.718 ICD-9: V12.5109/ctiveHypercoagulable stateICD-10: D68.59 ICD-9: 289.8109/ctiveHyperlipidemia associated with type 2 diabetes mellitusICD-10: E11.69 ICD-9: 250.8009/ctiveHypertensive heart disease without heart failure ICD-10: I11.9 ICD-9: 402.9009/ctiveHypokalemiaICD-10: E87.6 ICD-9: 276.809/ctiveLearning disabilityICD-10: F81.9 ICD-9: 315.209/ctiveLower extremity edemaICD-10: R60.0 ICD-9: 782.309/ctiveMajor depression, recurrentICD-10: F33.9 ICD-9: 296.3009/ctiveOnychogryposisICD-10: L60.2 ICD-9: 703.809/ctivePressure ulcer of left calf, unstageableICD-10: L89.890 ICD-9: 707.0909/ctiveReducible umbilical herniaICD-10: K42.9 ICD-9: 553.109/ctiveSeizure disorderICD-10: G40.909 ICD-9: 345.9009/ctiveStage 2 chronic 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ICD-10: E11.22 ICD-9: 250.4009/ctiveVitamin D deficiencyICD-10: E55.9 ICD-9: 268.909/ctiveCallus of heelICD-10: L84 ICD-9: 96556/esolvedGout due to renal impairmentICD-10: M10.30 ICD-9: 274.1005esolvedHyperhidrosis of palmsICD-10: L74.512 ICD-9: 705.21010/12/2023esolvedHyperlipidemia, unspecifiedICD-10: E78.5 ICD-9: 272.405/4ResolvedOther nursing home (current) drug therapyICD-10: Z79.899 ICD-9: V58.6905esolvedPain of [...] tagICD-10: L91.8 ICD-9: 701.904esolvedCoronary artery disease involving [place] coronary artery of [place] heart, angina presence unspecifiedICD-10: I25.10 ICD-9: 414.0102/ctiveInappropriate sexual behaviorICD-10: Z72.89 ICD-9: 312.8910/ctivePre-op evaluationICD-10: Z01.818 ICD-9: V72.8403/ctiveSecondary hypertensionICD-10: I15.9 ICD-9: 405.9903/ctiveDepressionICD-10: F32.9 ICD-9: 26896/esolvedDVT (deep venous thrombosis)ICD-10: I82.409 ICD-9: 453.4009/2ResolvedEncounter for [...] to other viral communicable diseasesICD-10: Z20.828 ICD-9: V01.7902/4085LrhaytvwXrekueuuYkcthab23/28/2020ActiveDiabetes mellitus Type 5Vanmmbc93/28/2020ActiveAnemia in chronic kidney diseaseICD-10: D63.1 02/12/2020ResolvedHyperlipidemia, unspecifiedICD-10: E78.509Resolved Medications Medication Codes Instructions Start Date Stop Date Status Fill Instructions Tusharagldestin KwikPen U-100 Insulin 100 unit/mL (3 mL) subcutaneous RxNorm: 6860922 Inject 40 Unit(s) Subcutaneous BID 03/07/20 24 025 Active Please dispense one month supply. Humulin R U-500 (Concentrated) Insulin 500 unit/mL subcutaneous soln RxNorm: 666135 Inject 100 Unit(s) Subcutaneous AC before meals Three times daily before meals. 03/07/20 025 Active Accu-Chek Guide test strips RxNorm: Use 1 Test Strip QID And PRN-- also dispense Soft Touch Lancets (QID and PRN) to be use with new Accu [place] meter 03/04/20 Inactive ok to substitute with any covered alternative test strip Accu-Chek Guide Glucose Meter RxNorm: Use 1 Miscellaneous UD as directed Use glucose meter to monitor blood glucose 4 times daily and as needed. Dx:E11.42 03/04/20 Inactive nystatin 100,000 unit/gram topical powder RxNorm: 279734 Apply 1 Application Topical BID as needed abdominal/breast /groin folds 03/02/20 024 Active FreeStyle Chema 2 Sensor kit RxNorm: Use UD as directed 03/02/20 025 Active Lancets,Thin 28 gauge RxNorm: Use 1 as directed QID lancet 03/02/20 024 Inactive FreeStyle Chema 2 Sensor kit RxNorm: Use UD as directed 03/02/20 Inactive Pen Needle 30 gauge x 5/16 RxNorm: Pen(s) Use 1 needle as directed TID 03/02/20 24 024 Inactive Accu-Chek Guide test strips RxNorm: Use 1 Test Strip QID 03/02/20 Inactive ok to substitute with any covered alternative test strip Pen Needle 30 gauge x 5/16 RxNorm: Pen(s) Use 1 needle as directed TID 03/02/20 24 024 Inactive Humulin R U-500 (Concentrated) Insulin 500 unit/mL subcutaneous soln RxNorm: 784270 Inject 100 Unit(s) Subcutaneous TID 02/17/20 24 024 Inactive Humulin R U-500 (Concentrated) Insulin 500 unit/mL subcutaneous soln RxNorm: 757926 Inject 100 Unit(s) Subcutaneous TID 02/10/20 24 024 Inactive Basaglar KwikPen U-100 Insulin 100 unit/mL (3 mL) subcutaneous RxNorm: 4749156 Inject 30 Unit(s) Subcutaneous BID 02/10/20 24 024 Inactive Please dispense one month supply. pregabalin 100 mg capsule RxNorm: 878731 Take 1 Capsule(s) Oral QAM every morning 02/07/20 24 024 Active isosorbide mononitrate ER 60 mg tablet,extended release 24 hr RxNorm: 990929 Take 1 Tablet(s) Oral QD 02/01/20 24 025 Active aripiprazole 15 mg tablet RxNorm: 766521 Take 1/2 Tablet(s) Oral QD 02/01/20 24 025 Active torsemide 20 mg tablet RxNorm: 994241 1 TAB ORALLY DAILY (DX: EDEMA) 01/27/20 No Stop Date Active potassium chloride ER 20 mEq tablet,extended release(part/cryst) RxNorm: 3191420 2 TABS (40MEQ) ORALLY TWICE DAILY (DX: HYPOKALEMIA) 01/27/20 No Stop Date Active cephalexin 500 mg capsule RxNorm: 587626 Take 1 Capsule(s) Oral QID 12/17/19 24 024 Inactive cephalexin 500 mg capsule RxNorm: 251937 Take 1 Capsule(s) Oral QID 12/17/19 24 024 Inactive acetaminophen 500 mg tablet RxNorm: 575427 (MAX APAP:4GM/24HR) Take 1 Tablet(s) Oral TID as needed for pain 12/10/19 24 024 Active torsemide 20 mg tablet RxNorm: 598046 Take 1 Tablet(s) Oral QD 10/26/19 24 024 Inactive potassium chloride ER 20 mEq tablet,extended release RxNorm: 377284 Take 2 Tablet(s) Oral BID 10/26/19 24 025 Active torsemide 20 mg tablet RxNorm: 375811 Take 1 Tablet(s) Oral QD 10/26/19 24 024 Inactive potassium chloride ER 20 mEq tablet,extended release RxNorm: 721816 Take 2 Tablet(s) Oral BID 10/26/19 24 024 Inactive Artificial Tears (PF) 0.1 %-0.3 % drops in a dropperette RxNorm: 924418 Apply 1-2 Drop(s) Both eyes BID as needed 09/28/19 24 025 Active erythromycin 5 mg/gram (0.5 %) eye ointment RxNorm: 735238 Apply 1 Application Both eyes QHS every night at bedtime Instill ~1 cm ribbon into affected eye 09/28/19 24 024 Inactive Artificial Tears (PF) 0.1 %-0.3 % drops in a dropperette RxNorm: 973711 Apply 1-2 Drop(s) Both eyes BID as needed 09/28/19 24 024 Inactive erythromycin 5 mg/gram (0.5 %) eye ointment RxNorm: 455940 Apply 1 Application Both eyes QHS every night at bedtime Instill ~1 cm ribbon into affected eye 09/28/19 24 024 Inactive acetaminophen 500 mg tablet RxNorm: 303977 (MAX APAP:4GM/24HR) Take 1 Tablet(s) Oral TID as needed for pain 09/24/19 24 024 Inactive carvedilol 25 mg tablet RxNorm: 585281 Take 1 Tablet(s) Oral QD 09/08/19 24 No Stop Date Active pregabalin 100 mg capsule RxNorm: 559917 Take 1 Capsule(s) Oral QAM every morning 09/07/19 24 024 Inactive rosuvastatin 40 mg tablet RxNorm: 138355 Take 1 Tablet(s) Oral QPM every evening 07/13/19 24 No Stop Date Active ezetimibe 10 mg tablet RxNorm: 938432 Take 1 Tablet(s) Oral QD 07/13/19 24 No Stop Date Active bisacodyl 10 mg rectal suppository RxNorm: 332592 Insert 1 Suppository Rectal QD as needed 07/13/19 24 No Stop Date Active polyethylene glycol 3350 17 gram/dose oral powder RxNorm: 290764 Take 17 Gram(s) Oral BID as needed mix in 4-8ox water 07/13/19 24 No Stop Date Active ketoconazole 2 % shampoo RxNorm: 937991 Apply 1 Application Topical UD as directed 07/13/19 24 No Stop Date Active Ozempic 1 mg/dose (4 mg/3 mL) subcutaneous pen injector RxNorm: 7218592 Inject 1 Milligram(s) Subcutaneous QW once a week 07/13/19 24 No Stop Date Active Guaifenesin AC 10 mg-100 mg/5 mL oral liquid RxNorm: 271132 Take 10 Milliliter(s) Oral Q4H every four hours as needed 07/13/19 24 No Stop Date Active ammonium lactate 12 % topical cream RxNorm: 058048 Apply 1 Application Topical BID 07/13/19 24 No Stop Date Active hydrocortisone 2.5 % topical cream RxNorm: 367699 Apply 1 Application Topical BID as needed 07/13/19 24 No Stop Date Active rosuvastatin 20 mg sprinkle capsule RxNorm: 2095604 Take 1 Capsule(s) Oral QD 07/13/19 24 No Stop Date Active Vascepa 1 gram capsule RxNorm: 2595341 Take 2 Capsule(s) Oral BID 07/13/19 24 No Stop Date Active venlafaxine ER 75 mg capsule,extended release 24 hr RxNorm: 979676 Take 3 Capsule(s) Oral QD 07/13/19 24 No Stop Date Active aripiprazole 15 mg tablet RxNorm: 284360 Take 1/2 Tablet(s) Oral QD 07/13/19 24 024 Inactive isosorbide mononitrate ER 60 mg tablet,extended release 24 hr RxNorm: 892436 Take 1 Tablet(s) Oral QD 07/13/19 24 024 Inactive Basaglar KwikPen U-100 Insulin 100 unit/mL (3 mL) subcutaneous RxNorm: 2673236 Inject 30U SubQ twice daily 07/07/19 24 024 Inactive Please dispense one month supply. Basaglar KwikPen U-100 Insulin 100 unit/mL (3 mL) subcutaneous RxNorm: 5911021 Inject 30U SubQ twice daily 07/07/19 24 024 Inactive Please dispense one month supply. pregabalin 150 mg capsule RxNorm: 658749 Take 1 Capsule(s) Oral QHS every night at bedtime 07/05/19 24 024 Inactive pregabalin 150 mg capsule RxNorm: 035748 Take 1 Capsule(s) Oral QHS every night at bedtime 02 024 Inactive polyethylene glycol 3350 17 gram/dose oral powder RxNorm: 308258 Take 1 Packet Oral QD as needed (1 packet = 17g) mix with 4-8oz of liquid 06/15/19 024 Inactive bisacodyl 10 mg rectal suppository RxNorm: 528233 Insert one suppository per rectum once daily as needed for constipation 06/15/19 024 Inactive bisacodyl 10 mg rectal suppository RxNorm: 301049 Insert one suppository per rectum once daily as needed for constipation 06/15/19 024 Inactive pregabalin 100 mg capsule RxNorm: 635771 Take 1 Capsule(s) Oral QAM every morning 04/27/20 024 Inactive Levemir FlexPen 100 unit/mL (3 mL) solution subcutaneous insulin pen RxNorm: 690234 Inject 30 Unit(s) Subcutaneous BID 04/27/20 024 Inactive rosuvastatin 40 mg tablet RxNorm: 892095 Take 1 Tablet(s) Oral QPM every evening 04/16/20 024 Inactive D/C rosuvastatin 20mg venlafaxine ER 75 mg capsule,extended release 24 hr RxNorm: 842267 Take 3 Capsule(s) Oral QD 04/14/20 023 Inactive pregabalin 100 mg capsule RxNorm: 036745 Take 1 Capsule(s) Oral QAM every morning [...] strip clotrimazole 1 % topical cream RxNorm: 183175 Take apply topically to abdominal folds twice daily for 14 days 03/12/20 024 Inactive Ozempic 1 mg/dose (4 mg/3 mL) subcutaneous pen injector RxNorm: 7099749 Inject 1 Milligram(s) Subcutaneous QW once a week 03/11/20 23 023 Inactive rosuvastatin 20 mg tablet RxNorm: 866565 Take 1 Tablet(s) Oral QD 02/26/20 23 023 Inactive d/c pravastatin 80mg Ozempic 1 mg/dose (4 mg/3 mL) subcutaneous pen injector RxNorm: 3690034 Inject 1 Milligram(s) Subcutaneous QW once a week 02/20/20 23 023 Inactive pregabalin 150 mg capsule RxNorm: 243969 Take 1 Capsule(s) Oral HS at bed time 02/19/20 23 023 Inactive pregabalin 100 mg capsule RxNorm: 385937 Take 1 Capsule(s) Oral QAM every morning 02/18/20 023 Inactive venlafaxine ER 75 mg capsule,extended release 24 hr RxNorm: 117038 Take 3 Capsule(s) Oral QD 02/04/20 23 023 Inactive FreeStyle Chema 2 Sensor kit RxNorm: use as directed 02/04/20 23 023 Inactive FreeStyle Chema 2 Sensor kit RxNorm: use as directed 02/04/20 23 024 Inactive fluconazole 150 mg tablet RxNorm: 835577 Take 1 Tablet(s) Oral on day 3 and on day 6 02/03/20 23 024 Inactive chlorthalidone 25 mg tablet RxNorm: 009217 Take 1 Tablet(s) Oral QAM every morning 02/03/20 23 No Stop Date Active venlafaxine ER 150 mg capsule,extended release 24 hr RxNorm: 701382 Take 1 Capsule(s) Oral QD 02/03/20 23 023 Inactive acetaminophen 500 mg tablet RxNorm: 926214 1 TABLET ORALLY 3 TIMES DAILY (MAX APAP:4GM/24HR) 12/15/19 23 023 Inactive clotrimazole 1 % topical cream RxNorm: 875730 apply 1g topically to top of feet and in between toes BID 12/09/19 23 023 Inactive potassium chloride ER 20 mEq tablet,extended release RxNorm: 281586 Take 1 Tablet(s) Oral BID 12/09/19 024 Inactive d/c 20mEq once daily (sent from hospital) nystatin 100,000 unit/gram topical powder RxNorm: 954864 APPLY TO AFFECTED AREAS TOPICALLY 2 TIMES DAILY 11/21/19 23 023 Inactive Nystop 100,000 unit/gram topical powder RxNorm: 586413 Apply to abd folds, under breasts and L side of groin Topical BID x 14 days, then BID PRN 11/20/19 023 Inactive dx: yeast dermatitis [place] Ultra Strength 4 %-30 %-10 % topical cream RxNorm: 336831 Apply 1 Gram(s) Topical QID PRN to feet and legs for neuropathic pain 11/11/19 024 Inactive clotrimazole 1 % topical cream RxNorm: 987399 Apply 1/2 Gram(s) Topical BID Apply to affected areas of groin, periarea, and abdominal topically 2 times daily 11/10/19 023 Inactive hydrocortisone 2.5 % topical cream RxNorm: 101068 Apply 1/2 Gram(s) Topical BID as needed 11/10/19 024 Inactive Levemir FlexPen 100 unit/mL (3 mL) solution subcutaneous insulin pen RxNorm: 127415 Inject 30 Unit(s) Subcutaneous BID 10/07/19 023 Inactive Humulin R U-500 (Concentrated) Insulin 500 unit/mL subcutaneous soln RxNorm: 351992 Inject 100 Unit(s) Subcutaneous TID 10/07/19 024 Inactive Ozempic 0.25 mg or 0.5 mg (2 mg/3 mL) subcutaneous pen injector RxNorm: 4981354 Inject 1/2 Milligram(s) Subcutaneous QW once a week 10/07/19 024 Inactive aripiprazole 15 mg tablet RxNorm: 576722 1/2 TAB (7.5MG) ORALLY DAILY (DX:MAJOR DEPRESSIVE DISORDER) 09/23/19 023 Inactive Accu-Chek Guide test strips RxNorm: Use 1 Test Strip QID 09/15/19 23 023 Inactive ok to substitute with any covered alternative test strip Lancets,Thin 28 gauge RxNorm: Use 1 as directed QID 09/15/19 23 023 Inactive torsemide 20 mg tablet RxNorm: 786419 Take 1 Tablet(s) Oral BID 09/09/19 23 024 Inactive d/c once daily dosing carvedilol 25 mg tablet RxNorm: 301746 Take 1 Tablet(s) Oral QD 08/25/19 23 024 Inactive pregabalin 150 mg capsule RxNorm: 073322 1 Capsule(s) Oral HS at bed time 08/18/19 23 023 Inactive pregabalin 100 mg capsule RxNorm: 014541 1 Capsule(s) Oral QAM every morning 08/18/19 23 023 Inactive carvedilol 25 mg tablet RxNorm: 141508 1 Tablet(s) Oral QD 07/28/19 23 023 Inactive lisinopril 20 mg tablet RxNorm: 463988 Give 1 Tablet(s) Oral QD 07/28/19 23 023 Inactive Lyrica 150 mg capsule RxNorm: 977911 Take 1 Capsule(s) Oral QHS every night at bedtime 07/19/19 23 023 Inactive d/c 100mg dose Diflucan 150 mg tablet RxNorm: 487156 Take 1 Tablet(s) Oral QD repeat on day 3 and 6 07/19/19 23 023 Inactive pregabalin 100 mg capsule RxNorm: 250401 Take 1 Capsule(s) Oral QAM every morning 07/19/19 23 023 Inactive gatifloxacin 0.5 % eye drops RxNorm: 355790 Instill 1 Drop(s) as directed TID Instill 1 drop in to affected eye(s) starting 1 day prior to surgery and continue until gone (do not exceed 4 weeks). 07/13/19 23 023 Inactive carvedilol 25 mg tablet RxNorm: 674198 2 Tablet(s) Oral BID 07/13/19 23 023 Inactive Humulin R Regular U-100 Insulin 100 unit/mL injection solution RxNorm: 580505 85 Unit(s) Injection TID 07/13/19 23 023 Inactive ketorolac 0.5 % eye drops RxNorm: 326839 Instill 1 Drop(s) as directed QID Instill 1 drop into affected eye(s) 4 times daily starting 1 day prior to surgery and continue until gone (do not exceed 4 weeks). 07/13/19 23 023 Inactive Diflucan 150 mg tablet RxNorm: 068477 Take 1 Tablet(s) Oral QD repeat on day 3 and 6 06/30/19 23 023 Inactive Accu-Chek Guide test strips RxNorm: Use 1 Test Strip QID Use 1 test strip to monitor blood glucose 4 times daily and as needed. Dx:E11.42. 06/23/19 23 023 Inactive ok to substitute with any covered alternative test strip dextromethorphan-gu aifenesin 10 mg-100 mg/5 mL oral liquid RxNorm: 794916 Take 10 Milliliter(s) Oral every 4 hours as needed for cough 06/19/19 23 023 Inactive dextromethorphan-gu aifenesin 10 mg-100 mg/5 mL oral liquid RxNorm: 146759 Take 10 Milliliter(s) Oral every 4 hours as needed for cough 06/19/19 23 023 Inactive Lyrica 150 mg capsule RxNorm: 893060 Take 1 Capsule(s) Oral QHS every night at bedtime 06/18/19 23 023 Inactive d/c 100mg dose aripiprazole 15 mg tablet RxNorm: 405347 /2 TAB (7.5MG) ORALLY DAILY (DX:MAJOR DEPRESSIVE DISORDER) 06/05/19 23 023 Inactive pregabalin 100 mg capsule RxNorm: 747428 1 Capsule(s) Oral QAM every morning 06/02/19 23 023 Inactive Banophen 50 mg capsule RxNorm: 8643863 Take 1 Capsule(s) Oral Q6H every 6 hours as needed 05/19/19 23 No Stop Date Active Novolog Flexpen U-100 Insulin aspart 100 unit/mL (3 mL) subcutaneous RxNorm: 8760046 Inject 10 Unit(s) Subcutaneous QHS every night at bedtime with nighttime snack 04/08/20 Inactive Novolog Flexpen U-100 Insulin aspart 100 unit/mL (3 mL) subcutaneous RxNorm: 1585899 Inject 42 Unit(s) Subcutaneous TID in addition to sliding scale 04/08/20 022 Inactive d/c 36u albuterol sulfate HFA 90 mcg/actuation aerosol inhaler RxNorm: 2537966 Take 2 Puff(s) Inhalation Q4H every four hours as needed as needed for SOB, cough, or wheezing 04/07/20 030 Active Banophen 50 mg capsule RxNorm: 6065467 Take 1 Capsule(s) Oral Q6H every 6 hours as needed 04/06/20 023 Inactive diphenhydramine 50 mg tablet RxNorm: 7841259 Take 1 Tablet(s) Oral Q6H every 6 hours as needed 04/06/20 022 Inactive diphenhydramine 50 mg tablet RxNorm: 2884377 1 Tablet(s) Oral Q6H every 6 hours as needed 04/06/20 022 Inactive Abilify 15 mg tablet RxNorm: 359570 1/2 Tablet(s) Oral QD 03/10/20 023 Inactive Shingrix (PF) 50 mcg/0.5 mL intramuscular suspension, kit RxNorm: 1093973 Administer 1/2 Milliliter(s) Intramuscular QD one time shingrix step 2 ( step 1 given 11/04/21) WITH needle - Nursing please administer upon arrival and once administered post a bridge message with date of administration, power washer, expiration date, and lot# so we can update [facility] 02/18/20 22 022 Inactive dispense with needle Shingrix (PF) 50 mcg/0.5 mL intramuscular suspension, kit RxNorm: 8434771 Administer 1/2 Milliliter(s) Intramuscular QD one time shingrix step 2 ( step 1 given 11/04/21) WITH needle - Nursing please administer upon arrival and once administered post a bridge message with date of administration, power washer, expiration date, and lot# so we can update [facility] 02/18/20 22 Inactive dispense with needle polyethylene glycol 3350 17 gram/dose oral powder RxNorm: 294885 Take 17=1 capful Gram(s) Oral QD mix with 4-8oz of liquid 01/08/20 22 023 Inactive take this in addition to BID prn order Lyrica 100 mg capsule RxNorm: 933696 Take 1 Capsule(s) Oral QAM every morning 01/08/20 22 022 Inactive d/c 50mg dose acetaminophen 500 mg tablet RxNorm: 819625 Take 1 Tablet(s) Oral TID 01/08/20 22 022 Inactive d/c PRN order Lyrica 150 mg capsule RxNorm: 084673 Take 1 Capsule(s) Oral QHS every night at bedtime 01/08/20 22 023 Inactive d/c 100mg dose Abilify 5 mg tablet RxNorm: 685863 Take 1 Tablet(s) Oral QD take 1 tab po QD #30 refill 5 dx: MDD 12/12/19 22 022 Inactive Abilify 5 mg tablet RxNorm: 214278 Take 1 Tablet(s) Oral QD take 1 tab po QD #30 refill 5 dx: MDD 12/12/19 22 022 Inactive Novolog Flexpen U-100 Insulin aspart 100 unit/mL (3 mL) subcutaneous RxNorm: 7257825 Inject 42 Unit(s) Subcutaneous TID in addition to sliding scale 12/10/19 22 022 Inactive d/c 36u chlorthalidone 25 mg tablet RxNorm: 122655 Take 1 Tablet(s) Oral QAM every morning 12/10/19 22 023 Inactive pregabalin 50 mg capsule RxNorm: 031676 Take 1 Capsule(s) Oral QAM every morning 11/12/19 22 022 Inactive tetanus-diphtheria toxoids-Td 2 Lf unit-2 Lf unit/0.5 mL IM suspension RxNorm: 139 Take 0.5 Miscellaneous Intramuscular 11/12/19 22 022 Inactive need tdap - nursing to administer upon arrival pregabalin 50 mg capsule RxNorm: 855166 Take 1 Capsule(s) Oral QAM every morning 10/16/19 22 022 Inactive pregabalin 50 mg capsule RxNorm: 131038 Take 1 Capsule(s) Oral QAM every morning 10/16/19 22 022 Inactive pregabalin 50 mg capsule RxNorm: 131732 1 Capsule(s) Oral QAM every morning 10/15/19 22 022 Inactive Shingrix (PF) 50 mcg/0.5 mL intramuscular suspension, kit RxNorm: 8070103 Administer 1/2 Milliliter(s) Intramuscular one time Nursing please administer upon arrival and once administered post a bridge message with date of administration, power washer, expiration date, and lot# so we can update [facility]. 10/09/19 22 022 Inactive shingrix step 1 Shingrix (PF) 50 mcg/0.5 mL intramuscular suspension, kit RxNorm: 0748659 Administer 1/2 Milliliter(s) Intramuscular one time Nursing please administer upon arrival and once administered post a bridge message with date of administration, power washer, expiration date, and lot# so we can update [facility]. 10/09/19 22 022 Inactive shingrix step 1 cholecalciferol (vitamin D3) 1,250 mcg (50,000 unit) capsule RxNorm: 597515 Take 1 Capsule(s) Oral QW once a [...] aspart 100 unit/mL (3 mL) subcutaneous RxNorm: 8419159 Inject 10 Unit(s) Subcutaneous QHS every night at bedtime with nighttime snack 10/08/19 22 11/23/2 022 Inactive Shingrix (PF) 50 mcg/0.5 mL intramuscular suspension, kit RxNorm: 1820636 ADMINISTER 2-DOSE SERIES PER CDC GUIDELINES 10/08/19 22 Active Shingrix (PF) 50 mcg/0.5 mL intramuscular suspension, kit RxNorm: 9056788 ADMINISTER 2-DOSE SERIES PER CDC GUIDELINES 10/08/19 22 Inactive Novolog Flexpen U-100 Insulin aspart 100 unit/mL (3 mL) subcutaneous RxNorm: 4965506 Inject 36 Unit(s) Subcutaneous TID in addition to sliding scale 10/08/19 Inactive Novofine Autocover 30 gauge x 1/3 needle RxNorm: Use 1 Miscellaneous UD as directed Use 1 needle as directed to administer insulin 5 times a day Dx:E11.42. 10/03/19 Inactive ok to substitute with any covered alternative pen needle benzoyl peroxide 10 % topical cleanser RxNorm: 708298 Apply 1 Application Topical QD apply to face, wash rinse and dry once daily (may change to QOD if drying) 08/19/19 Inactive (%covered by insurance) #60ml refill 11 dx: acne benzoyl peroxide 10 % topical cleanser RxNorm: 673718 Apply 1 Application Topical QD apply to face, wash rinse and dry once daily (may change to QOD if drying) 08/19/19 022 Inactive (%covered by insurance) #60ml refill 11 dx: acne benzoyl peroxide 10 % topical cleanser RxNorm: 391456 Apply 1 Application Topical QD apply to face, wash rinse and dry once daily (may change to QOD if drying) 08/19/19 022 Inactive (%covered by insurance) #60ml refill 11 dx: acne Lyrica 50 mg capsule RxNorm: 678851 Take 1 Capsule(s) Oral QAM every morning Take 1 capsule by mouth once daily 08/19/19 22 Inactive benzoyl peroxide 10 % topical cleanser RxNorm: 423744 Apply 1 Application Topical QD apply to face, wash rinse and dry once daily (may change to QOD if drying) 08/19/19 22 022 Inactive (%covered by insurance) #60ml refill 11 dx: acne Lyrica 100 mg capsule RxNorm: 032005 Take 1 Capsule(s) Oral QHS every night at bedtime Take 1 capsule by mouth once daily at bedtime 08/19/19 22 022 Inactive Lyrica 100 mg capsule RxNorm: 638536 Take 1 Capsule(s) Oral QHS every night at bedtime Take 1 capsule by mouth once daily at bedtime 08/16/19 22 022 Inactive Lyrica 50 mg capsule RxNorm: 423576 Take 1 Capsule(s) Oral QAM every morning Take 1 capsule by mouth once daily 08/16/19 22 Inactive Levemir FlexTouch U-100 Insulin 100 unit/mL (3 mL) subcutaneous pen RxNorm: 329492 Inject 86 Unit(s) Subcutaneous BID 08/05/19 22 022 Inactive d/c 83units BID Lyrica 100 mg capsule RxNorm: 363877 Take 1 Capsule(s) Oral QHS every night at bedtime Take 1 capsule by mouth once daily at bedtime 07/14/19 22 022 Inactive Lyrica 50 mg capsule RxNorm: 799445 Take 1 Capsule(s) Oral QAM every morning Take 1 capsule by mouth once daily 07/14/19 22 022 Inactive Levemir FlexTouch U-100 Insulin 100 unit/mL (3 mL) subcutaneous pen RxNorm: 568825 Inject 83 Unit(s) Subcutaneous BID 07/08/19 22 [...] test strip hydralazine 50 mg tablet RxNorm: 339442 Take 1 Tablet(s) Oral QID 05/05/20 21 022 Inactive venlafaxine ER 225 mg tablet,extended release 24 hr RxNorm: 937762 Take 1 Tablet(s) Oral QD 05/05/20 21 021 Inactive venlafaxine ER 225 mg tablet,extended release 24 hr RxNorm: 685360 Take 1 Tablet(s) Oral QD 05/05/20 21 022 Inactive isosorbide mononitrate ER 30 mg tablet,extended release 24 hr RxNorm: 866772 Take 1 Tablet(s) Oral QD 05/05/20 21 024 Inactive hydralazine 50 mg tablet RxNorm: 144235 Take 1 Tablet(s) Oral QID 05/05/20 21 021 Inactive aspirin 81 mg tablet,delayed release RxNorm: 090492 Take 1 Tablet(s) Oral QD 03/31/20 21 022 Inactive Vitamin D2 1,250 mcg (50,000 unit) capsule RxNorm: 5726471 Take 1 Capsule(s) Oral QW once a week x 12 weeks 03/31/20 022 Inactive Vitamin D2 1,250 mcg (50,000 unit) capsule RxNorm: 0286442 Take 1 Capsule(s) Oral QW once a week 03/31/20 021 Inactive Zetia 10 mg tablet RxNorm: 544664 Take 1 Tablet(s) Oral QD 03/31/20 024 Inactive Zetia 10 mg tablet RxNorm: 074386 Take 1 Tablet(s) Oral QD 03/31/20 021 Inactive hydralazine 25 mg tablet RxNorm: 464446 Take 1 Tablet(s) Oral QID 03/31/20 021 Inactive hydralazine 25 mg tablet RxNorm: 022312 Take 1 Tablet(s) Oral QID 03/31/20 021 Inactive hydralazine 10 mg tablet RxNorm: 866954 Take 1 Tablet(s) Oral QID 03/03/20 021 Inactive cephalexin 500 mg tablet RxNorm: 095269 Take 1 Tablet(s) Oral QID 02/27/20 021 Inactive cephalexin 500 mg tablet RxNorm: 208877 Take 1 Tablet(s) Oral QID 02/27/20 021 Inactive lisinopril 40 mg tablet RxNorm: 686228 Take 1 Tablet(s) Oral QD 02/11/20 21 023 Inactive Eliquis 5 mg tablet RxNorm: 4353869 Take 1 Tablet(s) Oral BID 01/05/20 21 022 Inactive Eliquis 5 mg tablet RxNorm: 7989731 Take 2 Tablet(s) Oral QD 01/01/20 21 021 Inactive Lyrica 50 mg capsule RxNorm: 836188 Take 1 Capsule(s) Oral QAM every morning 12/24/19 21 021 Inactive Lyrica 100 mg capsule RxNorm: 056921 Take 1 Capsule(s) Oral QHS every night at bedtime 12/24/19 021 Inactive clotrimazole 1 % topical cream RxNorm: 837030 Apply to right foot and toes Topical BID 12/04/19 21 023 Inactive metoprolol succinate ER 200 mg tablet,extended release 24 hr RxNorm: 451028 Take 1 Tablet(s) Oral QD 12/04/19 21 023 Inactive ciprofloxacin 500 mg tablet RxNorm: 510194 Take 1 Tablet(s) Oral QD 11/30/19 21 021 Inactive DX ofloxacin otic drops Accu-Chek Guide test strips RxNorm: USE 1 TO CHECK GLUCOSE 4 TIMES DAILY AND NEEDED 11/15/19 21 023 Inactive Blood Glucose Test strips RxNorm: Use 1 Test Strip QID at PRN 11/05/19 21 023 Inactive E11.42 lisinopril 30 mg tablet RxNorm: 759820 Take 1 Tablet(s) Oral QD 10/30/19 21 021 Inactive lisinopril 20 mg tablet RxNorm: 524686 Take 1 Tablet(s) Oral QD 10/23/19 21 021 Inactive lisinopril 20 mg tablet RxNorm: 162073 Take 1 Tablet(s) Oral QD 10/23/19 21 021 Inactive lisinopril 10 mg tablet RxNorm: 605550 Take 1 Tablet(s) Oral QD 10/02/19 21 021 Inactive icosapent ethyl 1 gram capsule RxNorm: 5600553 Take 2 Capsule(s) (2 gm) Oral BID with meals 09/12/19 21 024 Inactive Okay to dispense one 2gm tab if you have that available. icosapent ethyl 1 gram capsule RxNorm: 6893595 Take 2 Capsule(s) Oral BID 09/12/19 21 021 Inactive Okay to dispense one 2gm tab if you have that available. amlodipine 10 mg tablet RxNorm: 145319 Take 1 Tablet(s) Oral QD 09/04/19 21 022 Inactive aspirin 81 mg tablet,delayed release RxNorm: 296970 Take 1 Tablet(s) Oral QD 09/04/19 21 021 Inactive Levemir FlexTouch U-100 Insulin 100 unit/mL (3 mL) subcutaneous pen RxNorm: 297680 Inject 150 Unit(s) Subcutaneous BID 09/04/19 21 022 Inactive venlafaxine ER 150 mg tablet,extended release 24 hr RxNorm: 202125 Take 1 Tablet(s) Oral QD 09/04/19 Inactive clotrimazole-betame thasone 1 %-0.05 % topical cream RxNorm: 884238 Apply to rash on red area on left abdomen/chest Topical BID 08/10/19 21 Inactive amlodipine 5 mg tablet RxNorm: 931153 Take 1 Tablet(s) Oral QD 07/31/19 Inactive cephalexin 500 mg tablet RxNorm: 442347 Take 1 Tablet(s) Oral BID BID - Twice Daily 07/31/19 Inactive Start 08/01/20 pantoprazole 40 mg tablet,delayed release RxNorm: 680825 Take 1 Tablet(s) Oral QAM every morning 07/08/19 022 Inactive senna 8.6 mg tablet RxNorm: 284797 Take 1 Tablet(s) Oral QD 07/08/19 022 Inactive carbamazepine 200 mg tablet RxNorm: 133377 Take 1 Tablet(s) Oral BID 07/08/19 022 Inactive clopidogrel 75 mg tablet RxNorm: 161414 Take 1 Tablet(s) Oral QD 07/08/19 021 Inactive Blood Glucose Test strips RxNorm: Use 1 Test Strip QID at PRN 07/08/19 21 Inactive E11.42 Novolog Flexpen U-100 Insulin aspart 100 unit/mL (3 mL) subcutaneous RxNorm: 3066518 Administer per sliding scale Milliliter(s) Subcutaneous TID 151-200: 10 u; 201-250: 20 u; 251-300: 30 u; 301-350: 40 u; 351-400: 50 u. 07/08/19 21 022 Inactive lisinopril 5 mg tablet RxNorm: 734699 Take 1 Tablet(s) Oral QD 07/08/19 021 Inactive Novolog Flexpen U-100 Insulin aspart 100 unit/mL (3 mL) subcutaneous RxNorm: 5149479 Inject 85 Unit(s) Subcutaneous TID 07/08/19 21 022 Inactive pravastatin 80 mg tablet RxNorm: 547358 Take 1 Tablet(s) Oral QHS every night at bedtime 07/08/19 023 Inactive clotrimazole 1 % topical cream RxNorm: 338642 Apply to bilateral groin areas Topical BID 07/08/19 022 Inactive metoprolol succinate ER 200 mg tablet,extended release 24 hr RxNorm: 847259 Take 1 Tablet(s) Oral QD 07/08/19 21 021 Inactive Vitamin D3 25 mcg (1,000 unit) tablet RxNorm: 329504 Take 1 Tablet(s) Oral QD 07/08/19 021 Inactive isosorbide dinitrate 30 mg tablet RxNorm: 057036 Take 1 Tablet(s) Oral QD 07/08/19 021 Inactive Levemir FlexTouch U-100 Insulin 100 unit/mL (3 mL) subcutaneous pen RxNorm: 718507 Inject 140 Unit(s) Subcutaneous BID 07/08/19 21 021 Inactive torsemide 20 mg tablet RxNorm: 582032 Take 1 Tablet(s) Oral QD 07/08/19 023 Inactive venlafaxine 75 mg tablet RxNorm: 138126 Take 1 Tablet(s) Oral QD 07/08/19 021 Inactive acetaminophen 500 mg tablet RxNorm: 295725 Take 1 Tablet(s) Oral TID as needed for headache 06/18/19 021 Inactive acetaminophen 500 mg tablet RxNorm: 154875 Take 1 Tablet(s) Oral TID as needed for headache 06/18/19 21 021 Inactive Lyrica 100 mg capsule RxNorm: 448160 Take 1 Capsule(s) Oral QHS every night at bedtime 06/11/19 21 021 Inactive Lyrica 50 mg capsule RxNorm: 031911 Take 1 Capsule(s) Oral QAM every morning 06/10/19 21 021 Inactive hydrocortisone 2.5 % topical cream RxNorm: 713340 Apply to bilateral groin creases Topical BID 05/15/20 20 021 Inactive clotrimazole 1 % topical cream RxNorm: 027161 Apply to bilateral groin areas Topical BID 05/15/20 20 021 Inactive Lyrica 50 mg capsule RxNorm: 326932 Take 1 Capsule(s) Oral QAM every morning 05/14/20 20 020 Inactive Lyrica 100 mg capsule RxNorm: 287378 Take 1 Capsule(s) Oral QHS every night [...] Inactive Nystop 100,000 unit/gram topical powder RxNorm: 394160 Apply to abd folds, under breasts and L side of groin Topical BID x 14 days, then BID PRN 04/08/20 20 020 Inactive dx: yeast dermatitis Lyrica 100 mg capsule RxNorm: 138187 Take 1 Capsule(s) Oral QHS every night at bedtime 03/13/20 20 Inactive Lyrica 50 mg capsule RxNorm: 673963 Take 1 Capsule(s) Oral QAM every morning 03/13/20 20 020 Inactive ketoconazole 2 % shampoo RxNorm: 629702 Apply Topical two times a week with showers 03/11/20 20 024 Inactive cholecalciferol (vitamin D3) 50 mcg (2,000 unit) tablet RxNorm: 475431 Take 1 Tablet(s) Oral QD 03/11/20 20 Inactive Zetia 10 mg tablet RxNorm: 519760 Take 1 Tablet(s) Oral QD 03/07/20 20 Inactive Zetia 10 mg tablet RxNorm: 445862 Take 1 Tablet(s) Oral QD 03/07/20 20 Inactive Lyrica 50 mg capsule RxNorm: 817162 Take 1 Capsule(s) Oral QAM every morning 02/15/20 20 Inactive Lyrica 100 mg capsule RxNorm: 351381 Take 1 Capsule(s) Oral QHS every night at bedtime 02/15/20 Inactive Lyrica 100 mg capsule RxNorm: 524201 Take 1 Capsule(s) Oral QHS every night at bedtime 02/15/20 20 Inactive Lyrica 50 mg capsule RxNorm: 259265 Take 1 Capsule(s) Oral QAM every morning 02/15/20 Inactive metoprolol succinate ER 200 mg tablet,extended release 24 hr RxNorm: 800448 Take 1 Tablet(s) Oral QD 08/11 Activeloperamide 2 mg capsuleRxNorm: 137903Cpfn 1 Capsule(s) Oral QID as needed 06/12/2021ctivehydralazine 50 mg tabletRxNorm: 910460Dtan 1 Tablet(s) Oral QID 08/11/2022ctiveSoft Touch LancetsRxNorm:qyjbqjgixjqay85/19/2024ctive venlafaxine ER 75 mg capsule,extended release 24 hrRxNorm: 400688Dffw 3 Capsule(s) Oral QD/Inactivepolyethylene glycol 3350 17 gram/dose oral powderRxNorm: 168055Volh 17=1 capful Gram(s) Oral BID as needed mix with 4-8oz of /Inactiveicosapent ethyl 1 gram capsuleRxNorm: 0079121Mzdt 2 Capsule(s) (2 gm) Oral BID with meals10/06/2022 3InactiveOkay to dispense one 2gm tab if you have that available. Levemir FlexTouch U-100 Insulin 100 unit/mL (3 mL) subcutaneous penRxNorm: 918981Knnxej 80 Unit(s) Subcutaneous BID/InactiveNovolog Flexpen U-100 Insulin aspart 100 unit/mL (3 mL) subcutaneousRxNorm: 5690128 Insert 30 Unit(s) Subcutaneous TID with mealsInactive [...] Referral: [facility] WPtel: [address], [address] [id number] USReferralRecords Spbeknzw51/08/2023Referral: [facility] WPtel: [address] [id number]/12/2022Referral: General CardiologyReferralCompleted 1Referral: General PsychologistReferralClosedReferral: General PsychiatristReferralPatient/Family [...] Sister Jyotsna involved in his care cell# [phone] Guardian: Don (tapan met in person 09/01/21), [...] note from 11.08.2023 at [facility] (follow up 6 months)Colon & Rectal Surgery visit scheduled for 03/08/24 with Matilde Pérez PA-C. 02/08/2024
--- OUTSIDE RECORDS SUMMARY | 2024-03-09 00:40 | XMS_ITS | CCD ---
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 Group Therapist Name Role Phone Arpit MCKINLEY-CHarrison Primary Care Provider Leona vailable [place] LOAN REVIEW OFFICER-C, [facility] U navailable Summary Purpose DataExchange Insurance Providers Payer name Policy type / Coverage type Covered libertarian ID Effective Begin Date Effective End Date [place] Part B [id number] Unknown Unknown Medicaid [place] Medicare Part B [id number] Unknown Unknown Family history Sister Brittany Suggs Diagnosis Age At Onset No Family Disease Entered N/A Runs in the family Diagnosis Age At Onset No Known Diseases N/A Sister Blanka Mcduffie Diagnosis Age At Onset No Family Disease Entered N/A Social History Social History Element Codes Description Effec tive Dates Tobacco history SNOMED CT: 023600208 Never smoker 01/16 Sexually Active? Unknown No [...] 10/07/2021 Living arrangements Unknown [facility] 09/03/[address]: 611746023 No Alcohol Consum ption 09/02/2020 Allergies, Adverse Reactions, Alerts Substance Reaction Codes Entered Date Inactivated Date Status * NO KNOWN FOOD ALLERGIES Psjecof8107/13/2023No Inactive DateActiveLISINOPRILRxNorm: 6089603No Inactive DateActiveMetformin FSuAfqyvos61/28/2020No Inactive DateActive* NO KNOWN ENVIRONMENTAL [id number]/27/2024No Inactive DateActive Problems Condition Codes Effective Dates [...] planning - to document end of life [id number] care planningICD-10: Z71.89 ICD-9: V65.4909/ctiveAmputated toe of [...] E55.9 ICD-9: 268.909/ctiveCallus of heelICD-10: L84 ICD-9: 92214/esolvedGout due to renal impairmentICD-10: M10.30 ICD-9: 274.1005esolvedHyperhidrosis [...] tagICD-10: L91.8 ICD-9: 701.904esolvedCoronary artery disease involving cata[place] coronary artery of [place] heart, angina presence unspecifiedICD-10: I25.10 ICD-9: 414.0102/ctiveInappropriate sexual behaviorICD-10: Z72.89 ICD-9: 312.8910/ctivePre-op evaluationICD-10: Z01.818 ICD-9: V72.8403/ctiveSecondary hypertensionICD-10: I15.9 ICD-9: 405.9903/ctiveDepressionICD-10: F32.9 ICD-9: 53825/esolvedDVT (deep venous thrombosis)ICD-10: I82.409 ICD-9: 453.4009/2ResolvedEncounter for [...] to other viral communicable diseasesICD-10: Z20.828 ICD-9: V01.7902/3606DwwlxjutWbqwnyvoBdgdgvk88/28/2020ActiveDiabetes mellitus Type 8Ssuelxp86/28/2020ActiveAnemia in chronic kidney diseaseICD-10: D63.1 02/12/2020ResolvedHyperlipidemia, unspecifiedICD-10: E78.509Resolved Medications Medication Codes Instructions Start Date Stop Date Status Fill Instructions Tusharagldestin KwikPen U-100 Insulin 100 unit/mL (3 mL) subcutaneous RxNorm: 2205976 Inject 40 Unit(s) Subcutaneous BID 03/07/20 24 025 Active Please dispense one month supply. Humulin R U-500 (Concentrated) Insulin 500 unit/mL subcutaneous soln RxNorm: 098202 Inject 100 Unit(s) Subcutaneous AC before meals Three times daily before meals. 03/07/20 025 Active Accu-Chek Guide test strips RxNorm: Use 1 Test Strip QID And PRN-- also dispense Soft Touch Lancets (QID and PRN) to be use with new Accu Douglas meter 03/04/20 Inactive ok to substitute with any covered alternative test strip Accu-Chek Guide Glucose Meter RxNorm: Use 1 Miscellaneous UD as directed Use glucose meter to monitor blood glucose 4 times daily and as needed. Dx:E11.42 03/04/20 Inactive nystatin 100,000 unit/gram topical powder RxNorm: 423745 Apply 1 Application Topical BID as needed [...] (Concentrated) Insulin 500 unit/mL subcutaneous soln RxNorm: 145250 Inject 100 Unit(s) Subcutaneous TID 02/17/20 24 024 Inactive Humulin R U-500 (Concentrated) Insulin 500 unit/mL subcutaneous soln RxNorm: 625229 Inject 100 Unit(s) Subcutaneous TID 02/10/20 24 024 Inactive Basaglar KwikPen U-100 Insulin 100 unit/mL (3 mL) subcutaneous RxNorm: 6652097 Inject 30 Unit(s) Subcutaneous BID 02/10/20 24 024 Inactive Please dispense one month supply. pregabalin 100 mg capsule RxNorm: 403503 Take 1 Capsule(s) Oral QAM every morning 02/07/20 24 024 Active isosorbide mononitrate ER 60 mg tablet,extended release 24 hr RxNorm: 466233 Take 1 Tablet(s) Oral QD 02/01/20 24 025 Active aripiprazole 15 mg tablet RxNorm: 509315 Take 1/2 Tablet(s) Oral QD 02/01/20 24 025 Active torsemide 20 mg tablet RxNorm: 884768 1 TAB ORALLY DAILY (DX: EDEMA) 01/27/20 No Stop Date Active potassium chloride ER 20 mEq tablet,extended release(part/cryst) RxNorm: 9543501 2 TABS (40MEQ) ORALLY TWICE DAILY (DX: HYPOKALEMIA) 01/27/20 No Stop Date Active cephalexin 500 mg capsule RxNorm: 265751 Take 1 Capsule(s) Oral QID 12/17/19 24 024 Inactive cephalexin 500 mg capsule RxNorm: 828399 Take 1 Capsule(s) Oral QID 12/17/19 24 024 Inactive acetaminophen 500 mg tablet RxNorm: 549335 (MAX APAP:4GM/24HR) Take 1 Tablet(s) Oral TID as needed for pain 12/10/19 24 024 Active torsemide 20 mg tablet RxNorm: 470225 Take 1 Tablet(s) Oral QD 10/26/19 24 024 Inactive potassium chloride ER 20 mEq tablet,extended release RxNorm: 881919 Take 2 Tablet(s) Oral BID 10/26/19 24 025 Active torsemide 20 mg tablet RxNorm: 997340 Take 1 Tablet(s) Oral QD 10/26/19 24 024 Inactive potassium chloride ER 20 mEq tablet,extended release RxNorm: 352560 Take 2 Tablet(s) Oral BID 10/26/19 24 024 Inactive Artificial Tears (PF) 0.1 %-0.3 % drops in a dropperette RxNorm: 528029 Apply 1-2 Drop(s) Both eyes BID as needed 09/28/19 24 025 Active erythromycin 5 mg/gram (0.5 %) eye ointment RxNorm: 154983 Apply 1 Application Both eyes QHS every night at bedtime Instill ~1 cm ribbon into affected eye 09/28/19 24 024 Inactive Artificial Tears (PF) 0.1 %-0.3 % drops in a dropperette RxNorm: 094928 Apply 1-2 Drop(s) Both eyes BID as needed 09/28/19 24 024 Inactive erythromycin 5 mg/gram (0.5 %) eye ointment RxNorm: 146639 Apply 1 Application Both eyes QHS every night at bedtime Instill ~1 cm ribbon into affected eye 09/28/19 24 024 Inactive acetaminophen 500 mg tablet RxNorm: 543863 (MAX APAP:4GM/24HR) Take 1 Tablet(s) Oral TID as needed for pain 09/24/19 24 024 Inactive carvedilol 25 mg tablet RxNorm: 512973 Take 1 Tablet(s) Oral QD 09/08/19 24 No Stop Date Active pregabalin 100 mg capsule RxNorm: 758565 Take 1 Capsule(s) Oral QAM every morning 09/07/19 24 024 Inactive rosuvastatin 40 mg tablet RxNorm: 815208 Take 1 Tablet(s) Oral QPM every evening 07/13/19 24 No Stop Date Active ezetimibe 10 mg tablet RxNorm: 278516 Take 1 Tablet(s) Oral QD 07/13/19 24 No Stop Date Active bisacodyl 10 mg rectal suppository RxNorm: 574369 Insert 1 Suppository Rectal QD as needed 07/13/19 24 No Stop Date Active polyethylene glycol 3350 17 gram/dose oral powder RxNorm: 223693 Take 17 Gram(s) Oral BID as needed mix in 4-8ox water 07/13/19 24 No Stop Date Active ketoconazole 2 % shampoo RxNorm: 869071 Apply 1 Application Topical UD as directed 07/13/19 24 No Stop Date Active Ozempic 1 mg/dose (4 mg/3 mL) subcutaneous pen injector RxNorm: 6922767 Inject 1 Milligram(s) Subcutaneous QW once a week 07/13/19 24 No Stop Date Active Guaifenesin AC 10 mg-100 mg/5 mL oral liquid RxNorm: 028871 Take 10 Milliliter(s) Oral Q4H every four hours as needed 07/13/19 24 No Stop Date Active ammonium lactate 12 % topical cream RxNorm: 793605 Apply 1 Application Topical BID 07/13/19 24 No Stop Date Active hydrocortisone 2.5 % topical cream RxNorm: 282010 Apply 1 Application Topical BID as needed 07/13/19 24 No Stop Date Active rosuvastatin 20 mg sprinkle capsule RxNorm: 4513087 Take 1 Capsule(s) Oral QD 07/13/19 24 No Stop Date Active Vascepa 1 gram capsule RxNorm: 9315295 Take 2 Capsule(s) Oral BID 07/13/19 24 No Stop Date Active venlafaxine ER 75 mg capsule,extended release 24 hr RxNorm: 185998 Take 3 Capsule(s) Oral QD 07/13/19 24 No Stop Date Active aripiprazole 15 mg tablet RxNorm: 026935 Take 1/2 Tablet(s) Oral QD 07/13/19 24 024 Inactive isosorbide mononitrate ER 60 mg tablet,extended release 24 hr RxNorm: 075077 Take 1 Tablet(s) Oral QD 07/13/19 24 024 Inactive Basaglar KwikPen U-100 Insulin 100 unit/mL (3 mL) subcutaneous RxNorm: 1825386 Inject 30U SubQ twice daily 07/07/19 24 024 Inactive Please dispense one month supply. Basaglar KwikPen U-100 Insulin 100 unit/mL (3 mL) subcutaneous RxNorm: 5910628 Inject 30U SubQ twice daily 07/07/19 24 024 Inactive Please dispense one month supply. pregabalin 150 mg capsule RxNorm: 260544 Take 1 Capsule(s) Oral QHS every night at bedtime 07/05/19 24 024 Inactive pregabalin 150 mg capsule RxNorm: 532516 Take 1 Capsule(s) Oral QHS every night at bedtime 02 024 Inactive polyethylene glycol 3350 17 gram/dose oral powder RxNorm: 153299 Take 1 Packet Oral QD as needed (1 packet = 17g) mix with 4-8oz of liquid 06/15/19 024 Inactive bisacodyl 10 mg rectal suppository RxNorm: 024432 Insert one suppository per rectum once daily as needed for constipation 06/15/19 024 Inactive bisacodyl 10 mg rectal suppository RxNorm: 566917 Insert one suppository per rectum once daily as needed for constipation 06/15/19 024 Inactive pregabalin 100 mg capsule RxNorm: 208997 Take 1 Capsule(s) Oral QAM every morning 04/27/20 024 Inactive Levemir FlexPen 100 unit/mL (3 mL) solution subcutaneous insulin pen RxNorm: 959627 Inject 30 Unit(s) Subcutaneous BID 04/27/20 024 Inactive rosuvastatin 40 mg tablet RxNorm: 132141 Take 1 Tablet(s) Oral QPM every evening 04/16/20 024 Inactive D/C rosuvastatin 20mg venlafaxine ER 75 mg capsule,extended release 24 hr RxNorm: 943593 Take 3 Capsule(s) Oral QD 04/14/20 023 Inactive pregabalin 100 mg capsule RxNorm: 376605 Take 1 Capsule(s) Oral QAM every morning [...] strip clotrimazole 1 % topical cream RxNorm: 101578 Take apply topically to abdominal folds twice daily for 14 days 03/12/20 024 Inactive Ozempic 1 mg/dose (4 mg/3 mL) subcutaneous pen injector RxNorm: 5340968 Inject 1 Milligram(s) Subcutaneous QW once a week 03/11/20 23 023 Inactive rosuvastatin 20 mg tablet RxNorm: 423516 Take 1 Tablet(s) Oral QD 02/26/20 23 023 Inactive d/c pravastatin 80mg Ozempic 1 mg/dose (4 mg/3 mL) subcutaneous pen injector RxNorm: 0774125 Inject 1 Milligram(s) Subcutaneous QW once a week 02/20/20 23 023 Inactive pregabalin 150 mg capsule RxNorm: 632834 Take 1 Capsule(s) Oral HS at bed time 02/19/20 23 023 Inactive pregabalin 100 mg capsule RxNorm: 919923 Take 1 Capsule(s) Oral QAM every morning 02/18/20 023 Inactive venlafaxine ER 75 mg capsule,extended release 24 hr RxNorm: 577989 Take 3 Capsule(s) Oral QD 02/04/20 23 023 Inactive FreeStyle Chema 2 Sensor kit RxNorm: use as directed 02/04/20 23 023 Inactive FreeStyle Chema 2 Sensor kit RxNorm: use as directed 02/04/20 23 024 Inactive fluconazole 150 mg tablet RxNorm: 047654 Take 1 Tablet(s) Oral on day 3 and on day 6 02/03/20 23 024 Inactive chlorthalidone 25 mg tablet RxNorm: 616781 Take 1 Tablet(s) Oral QAM every morning 02/03/20 23 No Stop Date Active venlafaxine ER 150 mg capsule,extended release 24 hr RxNorm: 854672 Take 1 Capsule(s) Oral QD 02/03/20 23 023 Inactive acetaminophen 500 mg tablet RxNorm: 653404 1 TABLET ORALLY 3 TIMES DAILY (MAX APAP:4GM/24HR) 12/15/19 23 023 Inactive clotrimazole 1 % topical cream RxNorm: 333515 apply 1g topically to top of feet and in between toes BID 12/09/19 23 023 Inactive potassium chloride ER 20 mEq tablet,extended release RxNorm: 621178 Take 1 Tablet(s) Oral BID 12/09/19 024 Inactive d/c 20mEq once daily (sent from hospital) nystatin 100,000 unit/gram topical powder RxNorm: 593428 APPLY TO AFFECTED AREAS TOPICALLY 2 TIMES DAILY 11/21/19 23 023 Inactive Nystop 100,000 unit/gram topical powder RxNorm: 865313 Apply to abd folds, under breasts and L side of groin Topical BID x 14 days, then BID PRN 11/20/19 023 Inactive dx: yeast dermatitis [place] Ultra Strength 4 %-30 %-10 % topical cream RxNorm: 448996 Apply 1 Gram(s) Topical QID PRN to feet and legs for neuropathic pain 11/11/19 024 Inactive clotrimazole 1 % topical cream RxNorm: 610313 Apply 1/2 Gram(s) Topical BID Apply to affected areas of groin, periarea, and abdominal topically 2 times daily 11/10/19 023 Inactive hydrocortisone 2.5 % topical cream RxNorm: 426438 Apply 1/2 Gram(s) Topical BID as needed 11/10/19 024 Inactive Levemir FlexPen 100 unit/mL (3 mL) solution subcutaneous insulin pen RxNorm: 901628 Inject 30 Unit(s) Subcutaneous BID 10/07/19 023 Inactive Humulin R U-500 (Concentrated) Insulin 500 unit/mL subcutaneous soln RxNorm: 676734 Inject 100 Unit(s) Subcutaneous TID 10/07/19 024 Inactive Ozempic 0.25 mg or 0.5 mg (2 mg/3 mL) subcutaneous pen injector RxNorm: 0824036 Inject 1/2 Milligram(s) Subcutaneous QW once a week 10/07/19 024 Inactive aripiprazole 15 mg tablet RxNorm: 470030 1/2 TAB (7.5MG) ORALLY DAILY (DX:MAJOR DEPRESSIVE DISORDER) 09/23/19 023 Inactive Accu-Chek Guide test strips RxNorm: Use 1 Test Strip QID 09/15/19 23 023 Inactive ok to substitute with any covered alternative test strip Lancets,Thin 28 gauge RxNorm: Use 1 as directed QID 09/15/19 23 023 Inactive torsemide 20 mg tablet RxNorm: 449582 Take 1 Tablet(s) Oral BID 09/09/19 23 024 Inactive d/c once daily dosing carvedilol 25 mg tablet RxNorm: 866956 Take 1 Tablet(s) Oral QD 08/25/19 23 024 Inactive pregabalin 150 mg capsule RxNorm: 234102 1 Capsule(s) Oral HS at bed time 08/18/19 23 023 Inactive pregabalin 100 mg capsule RxNorm: 944807 1 Capsule(s) Oral QAM every morning 08/18/19 23 023 Inactive carvedilol 25 mg tablet RxNorm: 221811 1 Tablet(s) Oral QD 07/28/19 23 023 Inactive lisinopril 20 mg tablet RxNorm: 413476 Give 1 Tablet(s) Oral QD 07/28/19 23 023 Inactive Lyrica 150 mg capsule RxNorm: 651692 Take 1 Capsule(s) Oral QHS every night at bedtime 07/19/19 23 023 Inactive d/c 100mg dose Diflucan 150 mg tablet RxNorm: 763086 Take 1 Tablet(s) Oral QD repeat on day 3 and 6 07/19/19 23 023 Inactive pregabalin 100 mg capsule RxNorm: 377791 Take 1 Capsule(s) Oral QAM every morning 07/19/19 23 023 Inactive gatifloxacin 0.5 % eye drops RxNorm: 382635 Instill 1 Drop(s) as directed TID Instill 1 drop in to affected eye(s) starting 1 day prior to surgery and continue until gone (do not exceed 4 weeks). 07/13/19 23 023 Inactive carvedilol 25 mg tablet RxNorm: 136479 2 Tablet(s) Oral BID 07/13/19 23 023 Inactive Humulin R Regular U-100 Insulin 100 unit/mL injection solution RxNorm: 329760 85 Unit(s) Injection TID 07/13/19 23 023 Inactive ketorolac 0.5 % eye drops RxNorm: 640252 Instill 1 Drop(s) as directed QID Instill 1 drop into affected eye(s) 4 times daily starting 1 day prior to surgery and continue until gone (do not exceed 4 weeks). 07/13/19 23 023 Inactive Diflucan 150 mg tablet RxNorm: 390842 Take 1 Tablet(s) Oral QD repeat on day 3 and 6 06/30/19 23 023 Inactive Accu-Chek Guide test strips RxNorm: Use 1 Test Strip QID Use 1 test strip to monitor blood glucose 4 times daily and as needed. Dx:E11.42. 06/23/19 23 023 Inactive ok to substitute with any covered alternative test strip dextromethorphan-gu aifenesin 10 mg-100 mg/5 mL oral liquid RxNorm: 751081 Take 10 Milliliter(s) Oral every 4 hours as needed for cough 06/19/19 23 023 Inactive dextromethorphan-gu aifenesin 10 mg-100 mg/5 mL oral liquid RxNorm: 052142 Take 10 Milliliter(s) Oral every 4 hours as needed for cough 06/19/19 23 023 Inactive Lyrica 150 mg capsule RxNorm: 589681 Take 1 Capsule(s) Oral QHS every night at bedtime 06/18/19 23 023 Inactive d/c 100mg dose aripiprazole 15 mg tablet RxNorm: 900615 /2 TAB (7.5MG) ORALLY DAILY (DX:MAJOR DEPRESSIVE DISORDER) 06/05/19 23 023 Inactive pregabalin 100 mg capsule RxNorm: 085766 1 Capsule(s) Oral QAM every morning 06/02/19 23 023 Inactive Banophen 50 mg capsule RxNorm: 6569377 Take 1 Capsule(s) Oral Q6H every 6 hours as needed 05/19/19 23 No Stop Date Active Novolog Flexpen U-100 Insulin aspart 100 unit/mL (3 mL) subcutaneous RxNorm: 1555492 Inject 10 Unit(s) Subcutaneous QHS every night at bedtime with nighttime snack 04/08/20 Inactive Novolog Flexpen U-100 Insulin aspart 100 unit/mL (3 mL) subcutaneous RxNorm: 0941490 Inject 42 Unit(s) Subcutaneous TID in addition to sliding scale 04/08/20 022 Inactive d/c 36u albuterol sulfate HFA 90 mcg/actuation aerosol inhaler RxNorm: 9900478 Take 2 Puff(s) Inhalation Q4H every four hours as needed as needed for SOB, cough, or wheezing 04/07/20 030 Active Banophen 50 mg capsule RxNorm: 4195147 Take 1 Capsule(s) Oral Q6H every 6 hours as needed 04/06/20 023 Inactive diphenhydramine 50 mg tablet RxNorm: 4612631 Take 1 Tablet(s) Oral Q6H every 6 hours as needed 04/06/20 022 Inactive diphenhydramine 50 mg tablet RxNorm: 7395803 1 Tablet(s) Oral Q6H every 6 hours as needed 04/06/20 022 Inactive Abilify 15 mg tablet RxNorm: 191614 1/2 Tablet(s) Oral QD 03/10/20 023 Inactive Shingrix (PF) 50 mcg/0.5 mL intramuscular suspension, kit RxNorm: 9160966 Administer 1/2 Milliliter(s) Intramuscular QD one time shingrix step 2 ( step 1 given 11/04/21) WITH needle - Nursing please administer upon arrival and once administered post a bridge message with date of administration, wire winding machine tender, expiration date, and lot# so we can update [facility] 02/18/20 22 022 Inactive dispense with needle Shingrix (PF) 50 mcg/0.5 mL intramuscular suspension, kit RxNorm: 2957804 Administer 1/2 Milliliter(s) Intramuscular QD one time shingrix step 2 ( step 1 given 11/04/21) WITH needle - Nursing please administer upon arrival and once administered post a bridge message with date of administration, wire winding machine tender, expiration date, and lot# so we can update [facility] 02/18/20 22 Inactive dispense with needle polyethylene glycol 3350 17 gram/dose oral powder RxNorm: 549316 Take 17=1 capful Gram(s) Oral QD mix with 4-8oz of liquid 01/08/20 22 023 Inactive take this in addition to BID prn order Lyrica 100 mg capsule RxNorm: 478730 Take 1 Capsule(s) Oral QAM every morning 01/08/20 22 022 Inactive d/c 50mg dose acetaminophen 500 mg tablet RxNorm: 684266 Take 1 Tablet(s) Oral TID 01/08/20 22 022 Inactive d/c PRN order Lyrica 150 mg capsule RxNorm: 949332 Take 1 Capsule(s) Oral QHS every night at bedtime 01/08/20 22 023 Inactive d/c 100mg dose Abilify 5 mg tablet RxNorm: 191309 Take 1 Tablet(s) Oral QD take 1 tab po QD #30 refill 5 dx: MDD 12/12/19 22 022 Inactive Abilify 5 mg tablet RxNorm: 353143 Take 1 Tablet(s) Oral QD take 1 tab po QD #30 refill 5 dx: MDD 12/12/19 22 022 Inactive Novolog Flexpen U-100 Insulin aspart 100 unit/mL (3 mL) subcutaneous RxNorm: 9511467 Inject 42 Unit(s) Subcutaneous TID in addition to sliding scale 12/10/19 22 022 Inactive d/c 36u chlorthalidone 25 mg tablet RxNorm: 428911 Take 1 Tablet(s) Oral QAM every morning 12/10/19 22 023 Inactive pregabalin 50 mg capsule RxNorm: 618107 Take 1 Capsule(s) Oral QAM every morning 11/12/19 22 022 Inactive tetanus-diphtheria toxoids-Td 2 Lf unit-2 Lf unit/0.5 mL IM suspension RxNorm: 139 Take 0.5 Miscellaneous Intramuscular 11/12/19 22 022 Inactive need tdap - nursing to administer upon arrival pregabalin 50 mg capsule RxNorm: 873503 Take 1 Capsule(s) Oral QAM every morning 10/16/19 22 022 Inactive pregabalin 50 mg capsule RxNorm: 984032 Take 1 Capsule(s) Oral QAM every morning 10/16/19 22 022 Inactive pregabalin 50 mg capsule RxNorm: 540697 1 Capsule(s) Oral QAM every morning 10/15/19 22 022 Inactive Shingrix (PF) 50 mcg/0.5 mL intramuscular suspension, kit RxNorm: 1285408 Administer 1/2 Milliliter(s) Intramuscular one time Nursing please administer upon arrival and once administered post a bridge message with date of administration, wire winding machine tender, expiration date, and lot# so we can update [facility]. 10/09/19 22 022 Inactive shingrix step 1 Shingrix (PF) 50 mcg/0.5 mL intramuscular suspension, kit RxNorm: 0063767 Administer 1/2 Milliliter(s) Intramuscular one time Nursing please administer upon arrival and once administered post a bridge message with date of administration, wire winding machine tender, expiration date, and lot# so we can update [facility]. 10/09/19 22 022 Inactive shingrix step 1 cholecalciferol (vitamin D3) 1,250 mcg (50,000 unit) capsule RxNorm: 150904 Take 1 Capsule(s) Oral QW once a [...] aspart 100 unit/mL (3 mL) subcutaneous RxNorm: 0122477 Inject 10 Unit(s) Subcutaneous QHS every night at bedtime with nighttime snack 10/08/19 22 11/23/2 022 Inactive Shingrix (PF) 50 mcg/0.5 mL intramuscular suspension, kit RxNorm: 9709559 ADMINISTER 2-DOSE SERIES PER CDC GUIDELINES 10/08/19 22 Active Shingrix (PF) 50 mcg/0.5 mL intramuscular suspension, kit RxNorm: 5156795 ADMINISTER 2-DOSE SERIES PER CDC GUIDELINES 10/08/19 22 Inactive Novolog Flexpen U-100 Insulin aspart 100 unit/mL (3 mL) subcutaneous RxNorm: 8054780 Inject 36 Unit(s) Subcutaneous TID in addition to sliding scale 10/08/19 Inactive Novofine Autocover 30 gauge x 1/3 needle RxNorm: Use 1 Miscellaneous UD as directed Use 1 needle as directed to administer insulin 5 times a day Dx:E11.42. 10/03/19 Inactive ok to substitute with any covered alternative pen needle benzoyl peroxide 10 % topical cleanser RxNorm: 201933 Apply 1 Application Topical QD apply to face, wash rinse and dry once daily (may change to QOD if drying) 08/19/19 Inactive (%covered by insurance) #60ml refill 11 dx: acne benzoyl peroxide 10 % topical cleanser RxNorm: 270569 Apply 1 Application Topical QD apply to face, wash rinse and dry once daily (may change to QOD if drying) 08/19/19 022 Inactive (%covered by insurance) #60ml refill 11 dx: acne benzoyl peroxide 10 % topical cleanser RxNorm: 298137 Apply 1 Application Topical QD apply to face, wash rinse and dry once daily (may change to QOD if drying) 08/19/19 022 Inactive (%covered by insurance) #60ml refill 11 dx: acne Lyrica 50 mg capsule RxNorm: 056995 Take 1 Capsule(s) Oral QAM every morning Take 1 capsule by mouth once daily 08/19/19 22 Inactive benzoyl peroxide 10 % topical cleanser RxNorm: 993693 Apply 1 Application Topical QD apply to face, wash rinse and dry once daily (may change to QOD if drying) 08/19/19 22 022 Inactive (%covered by insurance) #60ml refill 11 dx: acne Lyrica 100 mg capsule RxNorm: 429827 Take 1 Capsule(s) Oral QHS every night at bedtime Take 1 capsule by mouth once daily at bedtime 08/19/19 22 022 Inactive Lyrica 100 mg capsule RxNorm: 195098 Take 1 Capsule(s) Oral QHS every night at bedtime Take 1 capsule by mouth once daily at bedtime 08/16/19 22 022 Inactive Lyrica 50 mg capsule RxNorm: 478185 Take 1 Capsule(s) Oral QAM every morning Take 1 capsule by mouth once daily 08/16/19 22 Inactive Levemir FlexTouch U-100 Insulin 100 unit/mL (3 mL) subcutaneous pen RxNorm: 668760 Inject 86 Unit(s) Subcutaneous BID 08/05/19 22 022 Inactive d/c 83units BID Lyrica 100 mg capsule RxNorm: 879205 Take 1 Capsule(s) Oral QHS every night at bedtime Take 1 capsule by mouth once daily at bedtime 07/14/19 22 022 Inactive Lyrica 50 mg capsule RxNorm: 763928 Take 1 Capsule(s) Oral QAM every morning Take 1 capsule by mouth once daily 07/14/19 22 022 Inactive Levemir FlexTouch U-100 Insulin 100 unit/mL (3 mL) subcutaneous pen RxNorm: 309340 Inject 83 Unit(s) Subcutaneous BID 07/08/19 22 [...] test strip hydralazine 50 mg tablet RxNorm: 059636 Take 1 Tablet(s) Oral QID 05/05/20 21 022 Inactive venlafaxine ER 225 mg tablet,extended release 24 hr RxNorm: 299959 Take 1 Tablet(s) Oral QD 05/05/20 21 021 Inactive venlafaxine ER 225 mg tablet,extended release 24 hr RxNorm: 404601 Take 1 Tablet(s) Oral QD 05/05/20 21 022 Inactive isosorbide mononitrate ER 30 mg tablet,extended release 24 hr RxNorm: 349184 Take 1 Tablet(s) Oral QD 05/05/20 21 024 Inactive hydralazine 50 mg tablet RxNorm: 104053 Take 1 Tablet(s) Oral QID 05/05/20 21 021 Inactive aspirin 81 mg tablet,delayed release RxNorm: 441316 Take 1 Tablet(s) Oral QD 03/31/20 21 022 Inactive Vitamin D2 1,250 mcg (50,000 unit) capsule RxNorm: 1165621 Take 1 Capsule(s) Oral QW once a week x 12 weeks 03/31/20 022 Inactive Vitamin D2 1,250 mcg (50,000 unit) capsule RxNorm: 6623558 Take 1 Capsule(s) Oral QW once a week 03/31/20 021 Inactive Zetia 10 mg tablet RxNorm: 322612 Take 1 Tablet(s) Oral QD 03/31/20 024 Inactive Zetia 10 mg tablet RxNorm: 236994 Take 1 Tablet(s) Oral QD 03/31/20 021 Inactive hydralazine 25 mg tablet RxNorm: 149780 Take 1 Tablet(s) Oral QID 03/31/20 021 Inactive hydralazine 25 mg tablet RxNorm: 392804 Take 1 Tablet(s) Oral QID 03/31/20 021 Inactive hydralazine 10 mg tablet RxNorm: 638910 Take 1 Tablet(s) Oral QID 03/03/20 021 Inactive cephalexin 500 mg tablet RxNorm: 519862 Take 1 Tablet(s) Oral QID 02/27/20 021 Inactive cephalexin 500 mg tablet RxNorm: 014124 Take 1 Tablet(s) Oral QID 02/27/20 021 Inactive lisinopril 40 mg tablet RxNorm: 123592 Take 1 Tablet(s) Oral QD 02/11/20 21 023 Inactive Eliquis 5 mg tablet RxNorm: 2384145 Take 1 Tablet(s) Oral BID 01/05/20 21 022 Inactive Eliquis 5 mg tablet RxNorm: 8256300 Take 2 Tablet(s) Oral QD 01/01/20 21 021 Inactive Lyrica 50 mg capsule RxNorm: 928233 Take 1 Capsule(s) Oral QAM every morning 12/24/19 21 021 Inactive Lyrica 100 mg capsule RxNorm: 724420 Take 1 Capsule(s) Oral QHS every night at bedtime 12/24/19 021 Inactive clotrimazole 1 % topical cream RxNorm: 383789 Apply to right foot and toes Topical BID 12/04/19 21 023 Inactive metoprolol succinate ER 200 mg tablet,extended release 24 hr RxNorm: 494987 Take 1 Tablet(s) Oral QD 12/04/19 21 023 Inactive ciprofloxacin 500 mg tablet RxNorm: 370930 Take 1 Tablet(s) Oral QD 11/30/19 21 021 Inactive DX ofloxacin otic drops Accu-Chek Guide test strips RxNorm: USE 1 TO CHECK GLUCOSE 4 TIMES DAILY AND NEEDED 11/15/19 21 023 Inactive Blood Glucose Test strips RxNorm: Use 1 Test Strip QID at PRN 11/05/19 21 023 Inactive E11.42 lisinopril 30 mg tablet RxNorm: 062298 Take 1 Tablet(s) Oral QD 10/30/19 21 021 Inactive lisinopril 20 mg tablet RxNorm: 038139 Take 1 Tablet(s) Oral QD 10/23/19 21 021 Inactive lisinopril 20 mg tablet RxNorm: 068075 Take 1 Tablet(s) Oral QD 10/23/19 21 021 Inactive lisinopril 10 mg tablet RxNorm: 482012 Take 1 Tablet(s) Oral QD 10/02/19 21 021 Inactive icosapent ethyl 1 gram capsule RxNorm: 9783831 Take 2 Capsule(s) (2 gm) Oral BID with meals 09/12/19 21 024 Inactive Okay to dispense one 2gm tab if you have that available. icosapent ethyl 1 gram capsule RxNorm: 1924488 Take 2 Capsule(s) Oral BID 09/12/19 21 021 Inactive Okay to dispense one 2gm tab if you have that available. amlodipine 10 mg tablet RxNorm: 791504 Take 1 Tablet(s) Oral QD 09/04/19 21 022 Inactive aspirin 81 mg tablet,delayed release RxNorm: 405383 Take 1 Tablet(s) Oral QD 09/04/19 21 021 Inactive Levemir FlexTouch U-100 Insulin 100 unit/mL (3 mL) subcutaneous pen RxNorm: 668375 Inject 150 Unit(s) Subcutaneous BID 09/04/19 21 022 Inactive venlafaxine ER 150 mg tablet,extended release 24 hr RxNorm: 599515 Take 1 Tablet(s) Oral QD 09/04/19 Inactive clotrimazole-betame thasone 1 %-0.05 % topical cream RxNorm: 840934 Apply to rash on red area on left abdomen/chest Topical BID 08/10/19 21 Inactive amlodipine 5 mg tablet RxNorm: 182676 Take 1 Tablet(s) Oral QD 07/31/19 Inactive cephalexin 500 mg tablet RxNorm: 892801 Take 1 Tablet(s) Oral BID BID - Twice Daily 07/31/19 Inactive Start 08/01/20 pantoprazole 40 mg tablet,delayed release RxNorm: 968142 Take 1 Tablet(s) Oral QAM every morning 07/08/19 022 Inactive senna 8.6 mg tablet RxNorm: 239503 Take 1 Tablet(s) Oral QD 07/08/19 022 Inactive carbamazepine 200 mg tablet RxNorm: 589879 Take 1 Tablet(s) Oral BID 07/08/19 022 Inactive clopidogrel 75 mg tablet RxNorm: 844740 Take 1 Tablet(s) Oral QD 07/08/19 021 Inactive Blood Glucose Test strips RxNorm: Use 1 Test Strip QID at PRN 07/08/19 21 Inactive E11.42 Novolog Flexpen U-100 Insulin aspart 100 unit/mL (3 mL) subcutaneous RxNorm: 4562510 Administer per sliding scale Milliliter(s) Subcutaneous TID 151-200: 10 u; 201-250: 20 u; 251-300: 30 u; 301-350: 40 u; 351-400: 50 u. 07/08/19 21 022 Inactive lisinopril 5 mg tablet RxNorm: 109673 Take 1 Tablet(s) Oral QD 07/08/19 021 Inactive Novolog Flexpen U-100 Insulin aspart 100 unit/mL (3 mL) subcutaneous RxNorm: 2455204 Inject 85 Unit(s) Subcutaneous TID 07/08/19 21 022 Inactive pravastatin 80 mg tablet RxNorm: 133392 Take 1 Tablet(s) Oral QHS every night at bedtime 07/08/19 023 Inactive clotrimazole 1 % topical cream RxNorm: 193322 Apply to bilateral groin areas Topical BID 07/08/19 022 Inactive metoprolol succinate ER 200 mg tablet,extended release 24 hr RxNorm: 742385 Take 1 Tablet(s) Oral QD 07/08/19 21 021 Inactive Vitamin D3 25 mcg (1,000 unit) tablet RxNorm: 669143 Take 1 Tablet(s) Oral QD 07/08/19 021 Inactive isosorbide dinitrate 30 mg tablet RxNorm: 859469 Take 1 Tablet(s) Oral QD 07/08/19 021 Inactive Levemir FlexTouch U-100 Insulin 100 unit/mL (3 mL) subcutaneous pen RxNorm: 112872 Inject 140 Unit(s) Subcutaneous BID 07/08/19 21 021 Inactive torsemide 20 mg tablet RxNorm: 061798 Take 1 Tablet(s) Oral QD 07/08/19 023 Inactive venlafaxine 75 mg tablet RxNorm: 723466 Take 1 Tablet(s) Oral QD 07/08/19 021 Inactive acetaminophen 500 mg tablet RxNorm: 390802 Take 1 Tablet(s) Oral TID as needed for headache 06/18/19 021 Inactive acetaminophen 500 mg tablet RxNorm: 962743 Take 1 Tablet(s) Oral TID as needed for headache 06/18/19 21 021 Inactive Lyrica 100 mg capsule RxNorm: 400876 Take 1 Capsule(s) Oral QHS every night at bedtime 06/11/19 21 021 Inactive Lyrica 50 mg capsule RxNorm: 168313 Take 1 Capsule(s) Oral QAM every morning 06/10/19 21 021 Inactive hydrocortisone 2.5 % topical cream RxNorm: 507949 Apply to bilateral groin creases Topical BID 05/15/20 20 021 Inactive clotrimazole 1 % topical cream RxNorm: 703722 Apply to bilateral groin areas Topical BID 05/15/20 20 021 Inactive Lyrica 50 mg capsule RxNorm: 760452 Take 1 Capsule(s) Oral QAM every morning 05/14/20 20 020 Inactive Lyrica 100 mg capsule RxNorm: 949787 Take 1 Capsule(s) Oral QHS every night [...] Inactive Nystop 100,000 unit/gram topical powder RxNorm: 144327 Apply to abd folds, under breasts and L side of groin Topical BID x 14 days, then BID PRN 04/08/20 20 020 Inactive dx: yeast dermatitis Lyrica 100 mg capsule RxNorm: 344989 Take 1 Capsule(s) Oral QHS every night at bedtime 03/13/20 20 Inactive Lyrica 50 mg capsule RxNorm: 361829 Take 1 Capsule(s) Oral QAM every morning 03/13/20 20 020 Inactive ketoconazole 2 % shampoo RxNorm: 115010 Apply Topical two times a week with showers 03/11/20 20 024 Inactive cholecalciferol (vitamin D3) 50 mcg (2,000 unit) tablet RxNorm: 166752 Take 1 Tablet(s) Oral QD 03/11/20 20 Inactive Zetia 10 mg tablet RxNorm: 740356 Take 1 Tablet(s) Oral QD 03/07/20 20 Inactive Zetia 10 mg tablet RxNorm: 052917 Take 1 Tablet(s) Oral QD 03/07/20 20 Inactive Lyrica 50 mg capsule RxNorm: 667874 Take 1 Capsule(s) Oral QAM every morning 02/15/20 20 Inactive Lyrica 100 mg capsule RxNorm: 290136 Take 1 Capsule(s) Oral QHS every night at bedtime 02/15/20 Inactive Lyrica 100 mg capsule RxNorm: 642090 Take 1 Capsule(s) Oral QHS every night at bedtime 02/15/20 20 Inactive Lyrica 50 mg capsule RxNorm: 365323 Take 1 Capsule(s) Oral QAM every morning 02/15/20 Inactive metoprolol succinate ER 200 mg tablet,extended release 24 hr RxNorm: 191815 Take 1 Tablet(s) Oral QD 08/11 Activeloperamide 2 mg capsuleRxNorm: 628865Uxdk 1 Capsule(s) Oral QID as needed 06/12/2021ctivehydralazine 50 mg tabletRxNorm: 174512Nsob 1 Tablet(s) Oral QID 08/11/2022ctiveSoft Touch LancetsRxNorm:gmrgaqgrgryix77/19/2024ctive venlafaxine ER 75 mg capsule,extended release 24 hrRxNorm: 951848Bdnl 3 Capsule(s) Oral QD/Inactivepolyethylene glycol 3350 17 gram/dose oral powderRxNorm: 042300Fdqd 17=1 capful Gram(s) Oral BID as needed mix with 4-8oz of /Inactiveicosapent ethyl 1 gram capsuleRxNorm: 6687328Zgkw 2 Capsule(s) (2 gm) Oral BID with meals10/06/2022 3InactiveOkay to dispense one 2gm tab if you have that available. Levemir FlexTouch U-100 Insulin 100 unit/mL (3 mL) subcutaneous penRxNorm: 790983Cmvngm 80 Unit(s) Subcutaneous BID/InactiveNovolog Flexpen U-100 Insulin aspart 100 unit/mL (3 mL) subcutaneousRxNorm: 0508975 Insert 30 Unit(s) Subcutaneous TID with mealsInactive [...] [facility] WPtel: [address], [address] [id number] USReferralRecords Vycfmbkh38/08/2023Referral: [facility] WPtel: [address] [id number]/12/2022Referral: General CardiologyReferralCompleted 1Referral: General PsychologistReferralClosedReferral: General PsychiatristReferralPatient/Family [...] Sister Jyotsna involved in his care cell# [phone] Guardian: Don (tapan met in person 09/01/21), [...] note from 11.08.2023 at [facility] (follow up 6 months)Colon & Rectal Surgery visit scheduled for 03/08/24 with Matilde Pérez PA-C. 02/08/2024
--- OUTSIDE RECORDS SUMMARY | 2024-03-09 00:41 | XMS_ITS | CCD ---
Author Name Cecilio Durham ie Address [address] [place] [address] Phone Organization [facility] Phone Care Team Providers Care Calciner Operator Name Role Phone Arpit MENDOZA Harrison Primary Care Provider Leona vailable Arpit ARLENParker Harrison Chronic Care Management U navailable Summary Purpose DataExchange Insurance Providers Payer name Policy type / Coverage type Covered alliance party ID Effective Begin Date Effective End Date Medicare [place] Medicare Part B [id number] Unknown Unknown [place] Medicare Part B [id number] Unknown Unknown Family history Sister Brittany Suggs Diagnosis Age At Onset No Family Disease Entered N/A Runs in the family Diagnosis Age At Onset No Known Diseases N/A Sister Blanka Mcduffie Diagnosis Age At Onset No Family Disease Entered N/A Social History Social History Element Codes Description Effec tive Dates Tobacco history SNOMED CT: 317915692 Never smoker 01/16 Sexually Active? 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: 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.20 ICD-9: 344.110ctive(R53.81) Physical deconditioningICD-10: R53.81 ICD-9: 799.310ctive(Z68.44) BMI 60.0-69.9, adultICD-10: Z68.44 ICD-9: V85.4410ctiveDiabetic neuropathy associated with type 2 diabetes mellitusICD-10: E11.40 ICD-9: 250.6010ctiveLow back painICD-10: M54.50 ICD-9: 724.210ctivePVD (peripheral vascular disease)ICD-10: I73.9 ICD-9: 443.910ctiveType 2 diabetes mellitus with diabetic polyneuropathy, with long-term current use of insulinICD-10: E11.42 ICD-9: 250.6010ctiveAdvanced care planning - to document end of life jjkqjjrduegFzckwvz13/24/2024ctiveAdvance care planningICD-10: Z71.89 ICD-9: V65.4909ctiveAmputated toe of right footICD-10: S98.131A ICD-9: 895.009ctiveAnnual physical examICD-10: Z00.00 ICD-9: V70.009ctiveCandidal intertrigoICD-10: B37.2 ICD-9: 112.309ctiveConstipation by delayed colonic transitICD-10: K59.01 ICD-9: 564.0109ctiveHistory of anemia due to CKDICD-10: N18.9 ICD-9: 585.909/ctiveHx of deep venous thrombosisICD-10: Z86.718 ICD-9: V12.5109/4ActiveHypercoagulable stateICD-10: D68.59 ICD-9: 289.8109/ctiveHyperlipidemia associated with type [...] to type 2 diabetes mellitusICD-10: E11.22 ICD-9: 250.4009/4ActiveVitamin D deficiencyICD-10: E55.9 ICD-9: 268.909/4ActiveCallus of heelICD-10: L84 ICD-9: 06630/esolvedGout due to renal impairmentICD-10: M10.30 ICD-9: 274.1005/esolvedHyperhidrosis of palmsICD-10: L74.512 ICD-9: 705.2105esolvedHyperlipidemia, unspecifiedICD-10: E78.5 ICD-9: 272.405/esolvedOther assistant terminal manager (current) drug therapyICD-10: Z79.899 ICD-9: V58.6905esolvedPain of [...] tagICD-10: L91.8 ICD-9: 701.904/esolvedCoronary artery disease involving [place] coronary artery of [place] heart, angina presence unspecifiedICD-10: I25.10 ICD-9: 414.0102/ctiveInappropriate sexual behaviorICD-10: Z72.89 ICD-9: 312.8910/ctivePre-op evaluationICD-10: Z01.818 ICD-9: V72.8403/ctiveSecondary hypertensionICD-10: I15.9 ICD-9: 405.99033ActiveDepressionICD-10: F32.9 ICD-9: 79770/esolvedDVT (deep venous thrombosis)ICD-10: I82.409 ICD-9: 453.4009/esolvedEncounter for immunizationICD-10: Z23 ICD-9: V03.89092ResolvedLong term (current) use of insulinICD-10: Z79.4 02/10/2022esolvedMuscular painICD-10: M79.10 ICD-9: 729.109esolvedHypertension associated with diabetesICD-10: E11.59 ICD-9: 250.8008esolvedContact with and (suspected) exposure to covid-19 ICD-10: Z20.822 ICD-9: V01.79081ResolvedOther infective acute otitis externa of left ear ICD-10: H60.392 ICD-9: 380.10081ResolvedScrotal skin lesionICD-10: N50.9 ICD-9: 608.908esolvedAnemia due to stage 3b chronic kidney diseaseICD- 10: N18.32 ICD-9: 285.2101ResolvedChronic kidney disease, stage 3 unspecifiedICD- 10: N18.3004esolvedContact with and (suspected) exposure to other viral communicable diseasesICD-10: Z20.828 ICD-9: V01.79023048ZfkkaeheRcotxysfBisomtv60/28/2020ActiveDiabetes mellitus Type 6Epnmkbp88/28/2020ActiveAnemia in chronic kidney diseaseICD-10: D63.1 02/12/2020ResolvedHyperlipidemia, unspecifiedICD-10: E78.Resolved Medications Medication Codes Instructions Start Date Stop Date Status Fill Instructions Lancets,Thin 28 gauge RxNorm: Use 1 as directed TID lancet 03/08/20 24 025 Active Lancets,Thin 28 gauge RxNorm: Use 1 as directed TID lancet 03/08/20 Inactive Pen Needle 30 gauge x 5/16 RxNorm: Pen(s) Use 1 needle as directed TID 03/08/20 Active Accu-Chek Guide Glucose Meter RxNorm: Use 1 Miscellaneous UD as directed Use glucose meter to monitor blood glucose 3 times daily. Dx:E11.42 03/08/20 Inactive Accu-Chek Guide test strips RxNorm: Use 1 Test Strip TID to test Blood glucose 03/08/20 Active ok to substitute with any covered alternative test strip Accu-Chek Guide test strips RxNorm: Use 1 Test Strip TID to test BS 03/08/20 Inactive ok to substitute with any covered alternative test strip Basaglar KwikPen U-100 Insulin 100 unit/mL (3 mL) subcutaneous RxNorm: 1156989 Inject 40 Unit(s) Subcutaneous BID 03/07/20 025 Active Please dispense one month supply. Humulin R U-500 (Concentrated) Insulin 500 unit/mL subcutaneous soln RxNorm: 938225 Inject 100 Unit(s) Subcutaneous AC before meals Three times daily before meals. 03/07/20 025 Active Accu-Chek Guide Glucose Meter RxNorm: Use 1 Miscellaneous UD as directed Use glucose meter to monitor blood glucose 4 times daily and as needed. Dx:E11.42 03/04/20 Inactive Accu-Chek Guide test strips RxNorm: Use 1 Test Strip QID And PRN-- also dispense Soft Touch Lancets (QID and PRN) to be use with new Accu Beacon meter 03/04/20 Inactive ok to substitute with any covered alternative test strip nystatin 100,000 unit/gram topical powder RxNorm: 483514 Apply 1 Application Topical BID as needed abdominal/breast /groin folds 03/02/20 Active FreeStyle Chema 2 Sensor kit RxNorm: Use UD as directed 03/02/20 025 Active FreeStyle Chema 2 Sensor kit RxNorm: Use UD as directed 03/02/20 24 024 Inactive Pen Needle 30 gauge x 16 RxNorm: Pen(s) Use 1 needle as directed TID 03/02/20 24 024 Inactive Accu-Chek Guide test strips RxNorm: Use 1 Test Strip QID 03/02/20 24 024 Inactive ok to substitute with any covered alternative test strip Lancets,Thin 28 gauge RxNorm: Use 1 as directed QID lancet 03/02/20 24 024 Inactive Pen Needle 30 gauge x 09/29 RxNorm: Pen(s) Use 1 needle as directed TID 03/02/20 24 024 Inactive Humulin R U-500 (Concentrated) Insulin 500 unit/mL subcutaneous soln RxNorm: 617317 Inject 100 Unit(s) Subcutaneous TID 02/17/20 24 024 Inactive Humulin R U-500 (Concentrated) Insulin 500 unit/mL subcutaneous soln RxNorm: 670592 Inject 100 Unit(s) Subcutaneous TID 02/10/20 24 024 Inactive Basaglar KwikPen U-100 Insulin 100 unit/mL (3 mL) subcutaneous RxNorm: 5636040 Inject 30 Unit(s) Subcutaneous BID 02/10/20 24 024 Inactive Please dispense one month supply. pregabalin 100 mg capsule RxNorm: 806140 Take 1 Capsule(s) Oral QAM every morning 02/07/20 24 024 Active isosorbide mononitrate ER 60 mg tablet,extended release 24 hr RxNorm: 447627 Take 1 Tablet(s) Oral QD 02/01/20 24 025 Active aripiprazole 15 mg tablet RxNorm: 300747 Take 1/2 Tablet(s) Oral QD 02/01/20 24 025 Active torsemide 20 mg tablet RxNorm: 450920 1 TAB ORALLY DAILY (DX: EDEMA) 01/27/20 24 No Stop Date Active potassium chloride ER 20 mEq tablet,extended release(part/cryst) RxNorm: 0180139 2 TABS (40MEQ) ORALLY TWICE DAILY (DX: HYPOKALEMIA) 01/27/20 No Stop Date Active cephalexin 500 mg capsule RxNorm: 601298 Take 1 Capsule(s) Oral QID 12/17/19 24 Inactive cephalexin 500 mg capsule RxNorm: 083249 Take 1 Capsule(s) Oral QID 12/17/19 24 Inactive acetaminophen 500 mg tablet RxNorm: 459222 (MAX APAP:4GM/24HR) Take 1 Tablet(s) Oral TID as needed for pain 12/10/19 24 Active torsemide 20 mg tablet RxNorm: 800426 Take 1 Tablet(s) Oral QD 10/26/19 24 024 Inactive potassium chloride ER 20 mEq tablet,extended release RxNorm: 19800522 Take 2 Tablet(s) Oral BID 10/26/19 24 Active torsemide 20 mg tablet RxNorm: 773989 Take 1 Tablet(s) Oral QD 10/26/19 24 024 Inactive potassium chloride ER 20 mEq tablet,extended release RxNorm: 820567 Take 2 Tablet(s) Oral BID 10/26/19 24 Inactive Artificial Tears (PF) 0.1 %-0.3 % drops in a dropperette RxNorm: 700482 Apply 1-2 Drop(s) Both eyes BID as needed 09/28/19 24 025 Active erythromycin 5 mg/gram (0.5 %) eye ointment RxNorm: 638401 Apply 1 Application Both eyes QHS every night at bedtime Instill ~1 cm ribbon into affected eye 09/28/19 24 024 Inactive Artificial Tears (PF) 0.1 %-0.3 % drops in a dropperette RxNorm: 452967 Apply 1-2 Drop(s) Both eyes BID as needed 09/28/19 24 024 Inactive erythromycin 5 mg/gram (0.5 %) eye ointment RxNorm: 473816 Apply 1 Application Both eyes QHS every night at bedtime Instill ~1 cm ribbon into affected eye 09/28/19 24 Inactive acetaminophen 500 mg tablet RxNorm: 812241 (MAX APAP:4GM/24HR) Take 1 Tablet(s) Oral TID as needed for pain 09/24/19 24 024 Inactive carvedilol 25 mg tablet RxNorm: 281176 Take 1 Tablet(s) Oral QD 09/08/19 24 No Stop Date Active pregabalin 100 mg capsule RxNorm: 524092 Take 1 Capsule(s) Oral QAM every morning 09/07/19 24 024 Inactive rosuvastatin 40 mg tablet RxNorm: 796663 Take 1 Tablet(s) Oral QPM every evening 07/13/19 24 No Stop Date Active ezetimibe 10 mg tablet RxNorm: 680127 Take 1 Tablet(s) Oral QD 07/13/19 24 No Stop Date Active bisacodyl 10 mg rectal suppository RxNorm: 305612 Insert 1 Suppository Rectal QD as needed 07/13/19 24 No Stop Date Active polyethylene glycol 3350 17 gram/dose oral powder RxNorm: 027953 Take 17 Gram(s) Oral BID as needed mix in 4-8ox water 07/13/19 24 No Stop Date Active ketoconazole 2 % shampoo RxNorm: 913128 Apply 1 Application Topical UD as directed 07/13/19 24 No Stop Date Active Ozempic 1 mg/dose (4 mg/3 mL) subcutaneous pen injector RxNorm: 4821041 Inject 1 Milligram(s) Subcutaneous QW once a week 07/13/19 24 No Stop Date Active Guaifenesin AC 10 mg-100 mg/5 mL oral liquid RxNorm: 914992 Take 10 Milliliter(s) Oral Q4H every four hours as needed 07/13/19 24 No Stop Date Active ammonium lactate 12 % topical cream RxNorm: 891047 Apply 1 Application Topical BID 07/13/19 24 No Stop Date Active hydrocortisone 2.5 % topical cream RxNorm: 671737 Apply 1 Application Topical BID as needed 07/13/19 24 No Stop Date Active rosuvastatin 20 mg sprinkle capsule RxNorm: 2665894 Take 1 Capsule(s) Oral QD 07/13/19 24 No Stop Date Active Vascepa 1 gram capsule RxNorm: 7957957 Take 2 Capsule(s) Oral BID 07/13/19 24 No Stop Date Active venlafaxine ER 75 mg capsule,extended release 24 hr RxNorm: 408996 Take 3 Capsule(s) Oral QD 07/13/19 24 No Stop Date Active aripiprazole 15 mg tablet RxNorm: 290906 Take 1/2 Tablet(s) Oral QD 07/13/19 24 024 Inactive isosorbide mononitrate ER 60 mg tablet,extended release 24 hr RxNorm: 280792 Take 1 Tablet(s) Oral QD 07/13/19 24 024 Inactive Basaglar KwikPen U-100 Insulin 100 unit/mL (3 mL) subcutaneous RxNorm: 0755664 Inject 30U SubQ twice daily 07/07/19 24 024 Inactive Please dispense one month supply. Basaglar KwikPen U-100 Insulin 100 unit/mL (3 mL) subcutaneous RxNorm: 6513521 Inject 30U SubQ twice daily 07/07/19 24 024 Inactive Please dispense one month supply. pregabalin 150 mg capsule RxNorm: 704223 Take 1 Capsule(s) Oral QHS every night at bedtime 07/05/19 24 024 Inactive pregabalin 150 mg capsule RxNorm: 853574 Take 1 Capsule(s) Oral QHS every night at bedtime 07/05/19 24 024 Inactive polyethylene glycol 3350 17 gram/dose oral powder RxNorm: 337602 Take 1 Packet Oral QD as needed (1 packet = 17g) mix with 4-8oz of liquid 06/15/19 24 024 Inactive bisacodyl 10 mg rectal suppository RxNorm: 928701 Insert one suppository per rectum once daily as needed for constipation 06/15/19 24 024 Inactive bisacodyl 10 mg rectal suppository RxNorm: 344219 Insert one suppository per rectum once daily as needed for constipation 06/15/19 24 024 Inactive pregabalin 100 mg capsule RxNorm: 164270 Take 1 Capsule(s) Oral QAM every morning 04/27/20 23 024 Inactive Levemir FlexPen 100 unit/mL (3 mL) solution subcutaneous insulin pen RxNorm: 167446 Inject 30 Unit(s) Subcutaneous BID 04/27/20 024 Inactive rosuvastatin 40 mg tablet RxNorm: 977899 Take 1 Tablet(s) Oral QPM every evening 04/16/20 024 Inactive D/C rosuvastatin 20mg venlafaxine ER 75 mg capsule,extended release 24 hr RxNorm: 794832 Take 3 Capsule(s) Oral QD 04/14/20 023 Inactive pregabalin 100 mg capsule RxNorm: 946846 Take 1 Capsule(s) Oral QAM every morning [...] strip clotrimazole 1 % topical cream RxNorm: 552067 Take apply topically to abdominal folds twice daily for 14 days 03/12/20 024 Inactive Ozempic 1 mg/dose (4 mg/3 mL) subcutaneous pen injector RxNorm: 5909026 Inject 1 Milligram(s) Subcutaneous QW once a week 03/11/20 023 Inactive rosuvastatin 20 mg tablet RxNorm: 297950 Take 1 Tablet(s) Oral QD 02/26/20 023 Inactive d/c pravastatin 80mg Ozempic 1 mg/dose (4 mg/3 mL) subcutaneous pen injector RxNorm: 5490792 Inject 1 Milligram(s) Subcutaneous QW once a week 02/20/20 23 023 Inactive pregabalin 150 mg capsule RxNorm: 195430 Take 1 Capsule(s) Oral HS at bed time 02/19/20 23 023 Inactive pregabalin 100 mg capsule RxNorm: 563566 Take 1 Capsule(s) Oral QAM every morning 02/18/20 23 023 Inactive venlafaxine ER 75 mg capsule,extended release 24 hr RxNorm: 593898 Take 3 Capsule(s) Oral QD 02/04/20 23 023 Inactive FreeStyle Chema 2 Sensor kit RxNorm: use as directed 02/04/20 23 023 Inactive FreeStyle Chema 2 Sensor kit RxNorm: use as directed 02/04/20 23 024 Inactive fluconazole 150 mg tablet RxNorm: 371150 Take 1 Tablet(s) Oral on day 3 and on day 6 02/03/20 024 Inactive chlorthalidone 25 mg tablet RxNorm: 060509 Take 1 Tablet(s) Oral QAM every morning 02/03/20 No Stop Date Active venlafaxine ER 150 mg capsule,extended release 24 hr RxNorm: 142600 Take 1 Capsule(s) Oral QD 02/03/20 23 023 Inactive acetaminophen 500 mg tablet RxNorm: 002391 1 TABLET ORALLY 3 TIMES DAILY (MAX APAP:4GM/24HR) 12/15/19 23 023 Inactive clotrimazole 1 % topical cream RxNorm: 585242 apply 1g topically to top of feet and in between toes BID 12/09/19 23 023 Inactive potassium chloride ER 20 mEq tablet,extended release RxNorm: 920486 Take 1 Tablet(s) Oral BID 12/09/19 23 024 Inactive d/c 20mEq once daily (sent from hospital) nystatin 100,000 unit/gram topical powder RxNorm: 368736 APPLY TO AFFECTED AREAS TOPICALLY 2 TIMES DAILY 11/21/19 23 023 Inactive Nystop 100,000 unit/gram topical powder RxNorm: 227287 Apply to abd folds, under breasts and L side of groin Topical BID x 14 days, then BID PRN 11/20/19 23 023 Inactive dx: yeast dermatitis [place] Ultra Strength 4 %-30 %-10 % topical cream RxNorm: 340507 Apply 1 Gram(s) Topical QID PRN to feet and legs for neuropathic pain 11/11/19 23 024 Inactive clotrimazole 1 % topical cream RxNorm: 946514 Apply 1/2 Gram(s) Topical BID Apply to affected areas of groin, periarea, and abdominal topically 2 times daily 11/10/19 23 023 Inactive hydrocortisone 2.5 % topical cream RxNorm: 437143 Apply 1/2 Gram(s) Topical BID as needed 11/10/19 024 Inactive Levemir FlexPen 100 unit/mL (3 mL) solution subcutaneous insulin pen RxNorm: 035104 Inject 30 Unit(s) Subcutaneous BID 10/07/19 023 Inactive Humulin R U-500 (Concentrated) Insulin 500 unit/mL subcutaneous soln RxNorm: 910054 Inject 100 Unit(s) Subcutaneous TID 10/07/19 024 Inactive Ozempic 0.25 mg or 0.5 mg (2 mg/3 mL) subcutaneous pen injector RxNorm: 7271871 Inject 1/2 Milligram(s) Subcutaneous QW once a week 10/07/19 024 Inactive aripiprazole 15 mg tablet RxNorm: 146487 1/2 TAB (7.5MG) ORALLY DAILY (DX:MAJOR DEPRESSIVE DISORDER) 09/23/19 23 023 Inactive Accu-Chek Guide test strips RxNorm: Use 1 Test Strip QID 09/15/19 23 023 Inactive ok to substitute with any covered alternative test strip Lancets,Thin 28 gauge RxNorm: Use 1 as directed QID 09/15/19 23 023 Inactive torsemide 20 mg tablet RxNorm: 170145 Take 1 Tablet(s) Oral BID 09/09/19 23 024 Inactive d/c once daily dosing carvedilol 25 mg tablet RxNorm: 553505 Take 1 Tablet(s) Oral QD 08/25/19 024 Inactive pregabalin 150 mg capsule RxNorm: 030924 1 Capsule(s) Oral HS at bed time 08/18/19 023 Inactive pregabalin 100 mg capsule RxNorm: 755210 1 Capsule(s) Oral QAM every morning 08/18/19 023 Inactive carvedilol 25 mg tablet RxNorm: 673294 1 Tablet(s) Oral QD 07/28/19 23 023 Inactive lisinopril 20 mg tablet RxNorm: 238739 Give 1 Tablet(s) Oral QD 07/28/19 23 023 Inactive Lyrica 150 mg capsule RxNorm: 651117 Take 1 Capsule(s) Oral QHS every night at bedtime 07/19/19 23 023 Inactive d/c 100mg dose Diflucan 150 mg tablet RxNorm: 173755 Take 1 Tablet(s) Oral QD repeat on day 3 and 6 07/19/19 23 023 Inactive pregabalin 100 mg capsule RxNorm: 402160 Take 1 Capsule(s) Oral QAM every morning 07/19/19 023 Inactive gatifloxacin 0.5 % eye drops RxNorm: 788934 Instill 1 Drop(s) as directed TID Instill 1 drop in to affected eye(s) starting 1 day prior to surgery and continue until gone (do not exceed 4 weeks). 07/13/19 23 023 Inactive carvedilol 25 mg tablet RxNorm: 399090 2 Tablet(s) Oral BID 07/13/19 023 Inactive Humulin R Regular U-100 Insulin 100 unit/mL injection solution RxNorm: 016344 85 Unit(s) Injection TID 07/13/19 23 023 Inactive ketorolac 0.5 % eye drops RxNorm: 570014 Instill 1 Drop(s) as directed QID Instill 1 drop into affected eye(s) 4 times daily starting 1 day prior to surgery and continue until gone (do not exceed 4 weeks). 07/13/19 023 Inactive Diflucan 150 mg tablet RxNorm: 100696 Take 1 Tablet(s) Oral QD repeat on day 3 and 6 06/30/19 23 023 Inactive Accu-Chek Guide test strips RxNorm: Use 1 Test Strip QID Use 1 test strip to monitor blood glucose 4 times daily and as needed. Dx:E11.42. 06/23/19 23 023 Inactive ok to substitute with any covered alternative test strip dextromethorphan-gu aifenesin 10 mg-100 mg/5 mL oral liquid RxNorm: 993835 Take 10 Milliliter(s) Oral every 4 hours as needed for cough 06/19/19 23 023 Inactive dextromethorphan-gu aifenesin 10 mg-100 mg/5 mL oral liquid RxNorm: 833398 Take 10 Milliliter(s) Oral every 4 hours as needed for cough 06/19/19 023 Inactive Lyrica 150 mg capsule RxNorm: 170712 Take 1 Capsule(s) Oral QHS every night at bedtime 06/18/19 023 Inactive d/c 100mg dose aripiprazole 15 mg tablet RxNorm: 851275 /2 TAB (7.5MG) ORALLY DAILY (DX:MAJOR DEPRESSIVE DISORDER) 06/05/19 023 Inactive pregabalin 100 mg capsule RxNorm: 620382 1 Capsule(s) Oral QAM every morning 06/02/19 023 Inactive Banophen 50 mg capsule RxNorm: 5641132 Take 1 Capsule(s) Oral Q6H every 6 hours as needed 05/19/19 23 No Stop Date Active Novolog Flexpen U-100 Insulin aspart 100 unit/mL (3 mL) subcutaneous RxNorm: 3560069 Inject 10 Unit(s) Subcutaneous QHS every night at bedtime with nighttime snack 04/08/20 022 Inactive Novolog Flexpen U-100 Insulin aspart 100 unit/mL (3 mL) subcutaneous RxNorm: 3375482 Inject 42 Unit(s) Subcutaneous TID in addition to sliding scale 04/08/20 022 Inactive d/c 36u albuterol sulfate HFA 90 mcg/actuation aerosol inhaler RxNorm: 1269726 Take 2 Puff(s) Inhalation Q4H every four hours as needed as needed for SOB, cough, or wheezing 04/07/20 030 Active Banophen 50 mg capsule RxNorm: 8424336 Take 1 Capsule(s) Oral Q6H every 6 hours as needed 04/06/20 023 Inactive diphenhydramine 50 mg tablet RxNorm: 3580679 Take 1 Tablet(s) Oral Q6H every 6 hours as needed 04/06/20 22 022 Inactive diphenhydramine 50 mg tablet RxNorm: 8339406 1 Tablet(s) Oral Q6H every 6 hours as needed 04/06/20 22 022 Inactive Abilify 15 mg tablet RxNorm: 334601 1/2 Tablet(s) Oral QD 03/10/20 22 023 Inactive Shingrix (PF) 50 mcg/0.5 mL intramuscular suspension, kit RxNorm: 7952831 Administer 1/2 Milliliter(s) Intramuscular QD one time shingrix step 2 ( step 1 given 11/04/21) WITH needle - Nursing please administer upon arrival and once administered post a bridge message with date of administration, pediatric assistant, expiration date, and lot# so we can update [facility] 02/18/20 22 022 Inactive dispense with needle Shingrix (PF) 50 mcg/0.5 mL intramuscular suspension, kit RxNorm: 1503110 Administer 1/2 Milliliter(s) Intramuscular QD one time shingrix step 2 ( step 1 given 11/04/21) WITH needle - Nursing please administer upon arrival and once administered post a bridge message with date of administration, pediatric assistant, expiration date, and lot# so we can update [facility] 02/18/20 22 022 Inactive dispense with needle polyethylene glycol 3350 17 gram/dose oral powder RxNorm: 188176 Take 17=1 capful Gram(s) Oral QD mix with 4-8oz of liquid 01/08/20 22 023 Inactive take this in addition to BID prn order Lyrica 100 mg capsule RxNorm: 215114 Take 1 Capsule(s) Oral QAM every morning 01/08/20 22 022 Inactive d/c 50mg dose acetaminophen 500 mg tablet RxNorm: 688711 Take 1 Tablet(s) Oral TID 01/08/20 22 022 Inactive d/c PRN order Lyrica 150 mg capsule RxNorm: 920074 Take 1 Capsule(s) Oral QHS every night at bedtime 01/08/20 22 023 Inactive d/c 100mg dose Abilify 5 mg tablet RxNorm: 187077 Take 1 Tablet(s) Oral QD take 1 tab po QD #30 refill 5 dx: MDD 12/12/19 22 022 Inactive Abilify 5 mg tablet RxNorm: 442069 Take 1 Tablet(s) Oral QD take 1 tab po QD #30 refill 5 dx: MDD 12/12/19 22 022 Inactive Novolog Flexpen U-100 Insulin aspart 100 unit/mL (3 mL) subcutaneous RxNorm: 6820947 Inject 42 Unit(s) Subcutaneous TID in addition to sliding scale 12/10/19 22 022 Inactive d/c 36u chlorthalidone 25 mg tablet RxNorm: 887879 Take 1 Tablet(s) Oral QAM every morning 12/10/19 22 023 Inactive pregabalin 50 mg capsule RxNorm: 005133 Take 1 Capsule(s) Oral QAM every morning 11/12/19 22 022 Inactive tetanus-diphtheria toxoids-Td 2 Lf unit-2 Lf unit/0.5 mL IM suspension RxNorm: 139 Take 0.5 Miscellaneous Intramuscular 11/12/19 22 022 Inactive need tdap - nursing to administer upon arrival pregabalin 50 mg capsule RxNorm: 956531 Take 1 Capsule(s) Oral QAM every morning 10/16/19 22 022 Inactive pregabalin 50 mg capsule RxNorm: 608579 Take 1 Capsule(s) Oral QAM every morning 10/16/19 22 022 Inactive pregabalin 50 mg capsule RxNorm: 462950 1 Capsule(s) Oral QAM every morning 10/15/19 22 022 Inactive Shingrix (PF) 50 mcg/0.5 mL intramuscular suspension, kit RxNorm: 0901400 Administer 1/2 Milliliter(s) Intramuscular one time Nursing please administer upon arrival and once administered post a bridge message with date of administration, pediatric assistant, expiration date, and lot# so we can update [facility]. 10/09/19 22 022 Inactive shingrix step 1 Shingrix (PF) 50 mcg/0.5 mL intramuscular suspension, kit RxNorm: 6601715 Administer 1/2 Milliliter(s) Intramuscular one time Nursing please administer upon arrival and once administered post a bridge message with date of administration, pediatric assistant, expiration date, and lot# so we can update [facility]. 10/09/19 22 022 Inactive shingrix step 1 cholecalciferol (vitamin D3) 1,250 mcg (50,000 unit) capsule RxNorm: 760243 Take 1 Capsule(s) Oral QW once a [...] aspart 100 unit/mL (3 mL) subcutaneous RxNorm: 4136683 Inject 10 Unit(s) Subcutaneous QHS every night at bedtime with nighttime snack 10/08/19 22 022 Inactive Shingrix (PF) 50 mcg/0.5 mL intramuscular suspension, kit RxNorm: 8503270 ADMINISTER 2-DOSE SERIES PER CDC GUIDELINES 10/08/19 22 022 Active Shingrix (PF) 50 mcg/0.5 mL intramuscular suspension, kit RxNorm: 3607755 ADMINISTER 2-DOSE SERIES PER CDC GUIDELINES 10/08/19 22 022 Inactive Novolog Flexpen U-100 Insulin aspart 100 unit/mL (3 mL) subcutaneous RxNorm: 9507311 Inject 36 Unit(s) Subcutaneous TID in addition to sliding scale 10/08/19 22 Inactive Novofine Autocover 30 gauge x 1/3 needle RxNorm: Use 1 Miscellaneous UD as directed Use 1 needle as directed to administer insulin 5 times a day Dx:E11.42. 10/03/19 22 022 Inactive ok to substitute with any covered alternative pen needle benzoyl peroxide 10 % topical cleanser RxNorm: 273949 Apply 1 Application Topical QD apply to face, wash rinse and dry once daily (may change to QOD if drying) 08/19/19 22 022 Inactive (%covered by insurance) #60ml refill 11 dx: acne benzoyl peroxide 10 % topical cleanser RxNorm: 922963 Apply 1 Application Topical QD apply to face, wash rinse and dry once daily (may change to QOD if drying) 08/19/19 22 022 Inactive (%covered by insurance) #60ml refill 11 dx: acne benzoyl peroxide 10 % topical cleanser RxNorm: 541215 Apply 1 Application Topical QD apply to face, wash rinse and dry once daily (may change to QOD if drying) 08/19/19 022 Inactive (%covered by insurance) #60ml refill 11 dx: acne Lyrica 50 mg capsule RxNorm: 173422 Take 1 Capsule(s) Oral QAM every morning Take 1 capsule by mouth once daily 08/19/19 022 Inactive benzoyl peroxide 10 % topical cleanser RxNorm: 402080 Apply 1 Application Topical QD apply to face, wash rinse and dry once daily (may change to QOD if drying) 08/19/19 022 Inactive (%covered by insurance) #60ml refill 11 dx: acne Lyrica 100 mg capsule RxNorm: 855883 Take 1 Capsule(s) Oral QHS every night at bedtime Take 1 capsule by mouth once daily at bedtime 08/19/19 22 022 Inactive Lyrica 100 mg capsule RxNorm: 000619 Take 1 Capsule(s) Oral QHS every night at bedtime Take 1 capsule by mouth once daily at bedtime 08/16/19 22 022 Inactive Lyrica 50 mg capsule RxNorm: 906064 Take 1 Capsule(s) Oral QAM every morning Take 1 capsule by mouth once daily 08/16/19 22 022 Inactive Levemir FlexTouch U-100 Insulin 100 unit/mL (3 mL) subcutaneous pen RxNorm: 085226 Inject 86 Unit(s) Subcutaneous BID 08/05/19 22 022 Inactive d/c 83units BID Lyrica 100 mg capsule RxNorm: 592716 Take 1 Capsule(s) Oral QHS every night at bedtime Take 1 capsule by mouth once daily at bedtime 07/14/19 22 022 Inactive Lyrica 50 mg capsule RxNorm: 812657 Take 1 Capsule(s) Oral QAM every morning Take 1 capsule by mouth once daily 07/14/19 22 Inactive Levemir FlexTouch U-100 Insulin 100 unit/mL (3 mL) subcutaneous pen RxNorm: 367329 Inject 83 Unit(s) Subcutaneous BID 07/08/19 22 [...] 4 times daily and as needed. Dx:. 06/05/1906/05/2 022 Inactive ok to substitute with any covered alternative test strip hydralazine 50 mg tablet RxNorm: 412833 Take 1 Tablet(s) Oral QID 05/05/20 Inactive venlafaxine ER 225 mg tablet,extended release 24 hr RxNorm: 992325 Take 1 Tablet(s) Oral QD 05/05/20 021 Inactive venlafaxine ER 225 mg tablet,extended release 24 hr RxNorm: 971377 Take 1 Tablet(s) Oral QD 05/05/20 022 Inactive isosorbide mononitrate ER 30 mg tablet,extended release 24 hr RxNorm: 357329 Take 1 Tablet(s) Oral QD 05/05/20 024 Inactive hydralazine 50 mg tablet RxNorm: 914392 Take 1 Tablet(s) Oral QID 05/05/20 Inactive aspirin 81 mg tablet,delayed release RxNorm: 338275 Take 1 Tablet(s) Oral QD 03/31/20 022 Inactive Vitamin D2 1,250 mcg (50,000 unit) capsule RxNorm: 6735346 Take 1 Capsule(s) Oral QW once a week x 12 weeks 03/31/20 Inactive Vitamin D2 1,250 mcg (50,000 unit) capsule RxNorm: 3036110 Take 1 Capsule(s) Oral QW once a week 03/31/20 021 Inactive Zetia 10 mg tablet RxNorm: 334569 Take 1 Tablet(s) Oral QD 03/31/20 024 Inactive Zetia 10 mg tablet RxNorm: 087724 Take 1 Tablet(s) Oral QD 03/31/20 Inactive hydralazine 25 mg tablet RxNorm: 616798 Take 1 Tablet(s) Oral QID 03/31/20 21 021 Inactive hydralazine 25 mg tablet RxNorm: 948612 Take 1 Tablet(s) Oral QID 03/31/20 021 Inactive hydralazine 10 mg tablet RxNorm: 810468 Take 1 Tablet(s) Oral QID 03/03/20 021 Inactive cephalexin 500 mg tablet RxNorm: 816439 Take 1 Tablet(s) Oral QID 02/27/20 021 Inactive cephalexin 500 mg tablet RxNorm: 136373 Take 1 Tablet(s) Oral QID 02/27/20 021 Inactive lisinopril 40 mg tablet RxNorm: 802764 Take 1 Tablet(s) Oral QD 02/11/20 023 Inactive Eliquis 5 mg tablet RxNorm: 1072218 Take 1 Tablet(s) Oral BID 01/05/20 21 022 Inactive Eliquis 5 mg tablet RxNorm: 2794347 Take 2 Tablet(s) Oral QD 01/01/20 21 021 Inactive Lyrica 50 mg capsule RxNorm: 331946 Take 1 Capsule(s) Oral QAM every morning 12/24/19 021 Inactive Lyrica 100 mg capsule RxNorm: 412890 Take 1 Capsule(s) Oral QHS every night at bedtime 12/24/19 021 Inactive clotrimazole 1 % topical cream RxNorm: 991880 Apply to right foot and toes Topical BID 12/04/19 21 023 Inactive metoprolol succinate ER 200 mg tablet,extended release 24 hr RxNorm: 173026 Take 1 Tablet(s) Oral QD 12/04/19 023 Inactive ciprofloxacin 500 mg tablet RxNorm: 878557 Take 1 Tablet(s) Oral QD 11/30/19 021 Inactive DX ofloxacin otic drops Accu-Chek Guide test strips RxNorm: USE 1 TO CHECK GLUCOSE 4 TIMES DAILY AND NEEDED 11/15/19 21 023 Inactive Blood Glucose Test strips RxNorm: Use 1 Test Strip QID at PRN 11/05/19 21 023 Inactive E11.42 lisinopril 30 mg tablet RxNorm: 651777 Take 1 Tablet(s) Oral QD 10/30/19 21 021 Inactive lisinopril 20 mg tablet RxNorm: 896494 Take 1 Tablet(s) Oral QD 10/23/19 21 021 Inactive lisinopril 20 mg tablet RxNorm: 568142 Take 1 Tablet(s) Oral QD 10/23/19 21 021 Inactive lisinopril 10 mg tablet RxNorm: 191988 Take 1 Tablet(s) Oral QD 10/02/19 21 021 Inactive icosapent ethyl 1 gram capsule RxNorm: 3955963 Take 2 Capsule(s) (2 gm) Oral BID with meals 09/12/19 21 024 Inactive Okay to dispense one 2gm tab if you have that available. icosapent ethyl 1 gram capsule RxNorm: 5936454 Take 2 Capsule(s) Oral BID 09/12/19 21 021 Inactive Okay to dispense one 2gm tab if you have that available. amlodipine 10 mg tablet RxNorm: 953872 Take 1 Tablet(s) Oral QD 09/04/19 022 Inactive aspirin 81 mg tablet,delayed release RxNorm: 203910 Take 1 Tablet(s) Oral QD 09/04/19 21 021 Inactive Levemir FlexTouch U-100 Insulin 100 unit/mL (3 mL) subcutaneous pen RxNorm: 622892 Inject 150 Unit(s) Subcutaneous BID 09/04/19 21 022 Inactive venlafaxine ER 150 mg tablet,extended release 24 hr RxNorm: 510725 Take 1 Tablet(s) Oral QD 09/04/19 21 021 Inactive clotrimazole-betame thasone 1 %-0.05 % topical cream RxNorm: 028431 Apply to rash on red area on left abdomen/chest Topical BID 08/10/19 21 021 Inactive amlodipine 5 mg tablet RxNorm: 966739 Take 1 Tablet(s) Oral QD 07/31/19 21 021 Inactive cephalexin 500 mg tablet RxNorm: 136949 Take 1 Tablet(s) Oral BID BID - Twice Daily 07/31/19 21 021 Inactive Start 08/01/20 pantoprazole 40 mg tablet,delayed release RxNorm: 851777 Take 1 Tablet(s) Oral QAM every morning 07/08/19 022 Inactive senna 8.6 mg tablet RxNorm: 099069 Take 1 Tablet(s) Oral QD 07/08/19 21 022 Inactive carbamazepine 200 mg tablet RxNorm: 224310 Take 1 Tablet(s) Oral BID 07/08/19 022 Inactive clopidogrel 75 mg tablet RxNorm: 763623 Take 1 Tablet(s) Oral QD 07/08/19 021 Inactive Blood Glucose Test strips RxNorm: Use 1 Test Strip QID at PRN 07/08/19 Inactive E11.42 Novolog Flexpen U-100 Insulin aspart 100 unit/mL (3 mL) subcutaneous RxNorm: 2045812 Administer per sliding scale Milliliter(s) Subcutaneous TID 151-200: 10 u; 201-250: 20 u; 251-300: 30 u; 301-350: 40 u; 351-400: 50 u. 07/08/19 21 022 Inactive lisinopril 5 mg tablet RxNorm: 604852 Take 1 Tablet(s) Oral QD 07/08/19 021 Inactive Novolog Flexpen U-100 Insulin aspart 100 unit/mL (3 mL) subcutaneous RxNorm: 5000363 Inject 85 Unit(s) Subcutaneous TID 07/08/19 022 Inactive pravastatin 80 mg tablet RxNorm: 045331 Take 1 Tablet(s) Oral QHS every night at bedtime 07/08/19 023 Inactive clotrimazole 1 % topical cream RxNorm: 857838 Apply to bilateral groin areas Topical BID 07/08/19 022 Inactive metoprolol succinate ER 200 mg tablet,extended release 24 hr RxNorm: 060871 Take 1 Tablet(s) Oral QD 07/08/19 21 021 Inactive Vitamin D3 25 mcg (1,000 unit) tablet RxNorm: 513860 Take 1 Tablet(s) Oral QD 07/08/19 021 Inactive isosorbide dinitrate 30 mg tablet RxNorm: 601069 Take 1 Tablet(s) Oral QD 07/08/19 021 Inactive Levemir FlexTouch U-100 Insulin 100 unit/mL (3 mL) subcutaneous pen RxNorm: 966463 Inject 140 Unit(s) Subcutaneous BID 07/08/19 021 Inactive torsemide 20 mg tablet RxNorm: 865906 Take 1 Tablet(s) Oral QD 07/08/19 023 Inactive venlafaxine 75 mg tablet RxNorm: 906714 Take 1 Tablet(s) Oral QD 07/08/19 021 Inactive acetaminophen 500 mg tablet RxNorm: 511934 Take 1 Tablet(s) Oral TID as needed for headache 06/18/19 021 Inactive acetaminophen 500 mg tablet RxNorm: 834596 Take 1 Tablet(s) Oral TID as needed for headache 06/18/19 021 Inactive Lyrica 100 mg capsule RxNorm: 986365 Take 1 Capsule(s) Oral QHS every night at bedtime 06/11/19 021 Inactive Lyrica 50 mg capsule RxNorm: 773446 Take 1 Capsule(s) Oral QAM every morning 06/10/19 021 Inactive hydrocortisone 2.5 % topical cream RxNorm: 547246 Apply to bilateral groin creases Topical BID 05/15/20 20 021 Inactive clotrimazole 1 % topical cream RxNorm: 368167 Apply to bilateral groin areas Topical BID 05/15/20 20 021 Inactive Lyrica 50 mg capsule RxNorm: 150053 Take 1 Capsule(s) Oral QAM every morning 05/14/20 20 020 Inactive Lyrica 100 mg capsule RxNorm: 445738 Take 1 Capsule(s) Oral QHS every night [...] Inactive Nystop 100,000 unit/gram topical powder RxNorm: 412042 Apply to abd folds, under breasts and L side of groin Topical BID x 14 days, then BID PRN 04/08/20 20 Inactive dx: yeast dermatitis Lyrica 100 mg capsule RxNorm: 167501 Take 1 Capsule(s) Oral QHS every night at bedtime 03/13/20 20 Inactive Lyrica 50 mg capsule RxNorm: 861386 Take 1 Capsule(s) Oral QAM every morning 03/13/20 20 Inactive ketoconazole 2 % shampoo RxNorm: 138085 Apply Topical two times a week with showers 03/11/20 20 Inactive cholecalciferol (vitamin D3) 50 mcg (2,000 unit) tablet RxNorm: 697911 Take 1 Tablet(s) Oral QD 03/11/20 20 021 Inactive Zetia 10 mg tablet RxNorm: 271929 Take 1 Tablet(s) Oral QD 03/07/20 20 021 Inactive Zetia 10 mg tablet RxNorm: 321612 Take 1 Tablet(s) Oral QD 03/07/20 20 Inactive Lyrica 50 mg capsule RxNorm: 997628 Take 1 Capsule(s) Oral QAM every morning 02/15/20 20 Inactive Lyrica 100 mg capsule RxNorm: 419653 Take 1 Capsule(s) Oral QHS every night at bedtime 02/15/20 20 Inactive Lyrica 100 mg capsule RxNorm: 003123 Take 1 Capsule(s) Oral QHS every night at bedtime 02/15/20 20 Inactive Lyrica 50 mg capsule RxNorm: 877246 Take 1 Capsule(s) Oral QAM every morning 02/15/20 20 020 Inactive metoprolol succinate ER 200 mg tablet,extended release 24 hr RxNorm: 484859 Take 1 Tablet(s) Oral QD 08/11 Activeloperamide 2 mg capsuleRxNorm: 065210Lrel 1 Capsule(s) Oral QID as needed 06/12/2021ctivehydralazine 50 mg tabletRxNorm: 390940Mtwa 1 Tablet(s) Oral QID 08/11/2022ctiveSoft Touch LancetsRxNorm:gqkrmxrojemlu64/19/2024ctive venlafaxine ER 75 mg capsule,extended release 24 hrRxNorm: 128734Wdwl 3 Capsule(s) Oral QD/Inactivepolyethylene glycol 3350 17 gram/dose oral powderRxNorm: 521684Odos 17=1 capful Gram(s) Oral BID as needed mix with 4-8oz of jgeiar65/Inactiveicosapent ethyl 1 gram capsuleRxNorm: 1178130Ctkg 2 Capsule(s) (2 gm) Oral BID with meals10/06/2022 10/05/2022InactiveOkay to dispense one 2gm tab if you have that available. Levemir FlexTouch U-100 Insulin 100 unit/mL (3 mL) subcutaneous penRxNorm: 499342Asvhxn 80 Unit(s) Subcutaneous BID/InactiveNovolog Flexpen U-100 Insulin aspart 100 unit/mL (3 mL) subcutaneousRxNorm: 6778726 Insert 30 Unit(s) Subcutaneous TID with meals/Inactive [...] Planned Activity Notes Codes Status Date Appointment: Brian Munson WPtel: [address] [place], [place] [phone] [facility]: Harrison Munson WPtel: [address] [place], [place] [id number] [place]/U001/11/2024ppointment: Sandra Clark WPtel: [address] [place], [place] [phone] [facility] Psych Follow Up12/09/2022ppointment: Tapan Shirley WPtel: [address] [place], [place] [phone] USTCM10/26/2022Referral: [facility] WPtel: [address] , [address] [id number] USReferralRecords Ewzcnqlb12/08/2023ppointment: Tapan Shirley WPtel: [address] [facility] [address] [id number] USF/U008/11/2022ppointment: Tapan Shirley WPtel: [address] [facility] [address] [id number] USF/U007/14/2022ppointment: Tapan Shirley WPtel: [address] [facility] [address] [id number] USF/2Referral: [facility] WPtel: [address] [id number] ABPhljjsmkIhpjwnpyw25/12/2022Referral: General CardiologyReferralCompleted 1Referral: General PsychologistReferralClosedReferral: General PsychiatristReferralPatient/Family [...] Sister Jyotsna involved in his care cell# [phone] Guardian: Giulia (tapan met in person 09/01/21), [...] 1 year to monitor growth (due )Dr. Matrines note from 11.08.2023 at [facility] (follow up 6 months)Colon & Rectal Surgery visit scheduled for 03/08/24 with Matilde Pérez PA-C. 02/08/2024
--- OUTSIDE RECORDS SUMMARY | 2024-03-09 00:42 | XMS_ITS | CCD ---
Author Name Cecilio Durham ie Address [address] [facility] [address] [place] [address] Phone Organization [facility] Phone Care Team Providers Care Educational Psychologist Name Role Phone Arpit MENDOZA Harrison Primary Care Provider Leona vailable Arpit ARLENParker Harrison Chronic Care Management U navailable Summary Purpose DataExchange Insurance Providers Payer name Policy type / Coverage type Covered constitution party ID Effective Begin Date Effective End Date Medicare [place] Medicare Part B [id number] Unknown Unknown [place] Medicare Part B [id number] Unknown Unknown Family history Sister Brittany Suggs Diagnosis Age At Onset No Family Disease Entered N/A Runs in the family Diagnosis Age At Onset No Known Diseases N/A Sister Blanka Mcduffie Diagnosis Age At Onset No Family Disease Entered N/A Social History Social History Element Codes Description Effec tive Dates Tobacco history SNOMED CT: 503167364 Never smoker 01/16 Sexually Active? Unknown No [...] Single 10/07/2021 Living arrangements Unknown [facility] 09/03/[address]: 220708886 No Alcohol Consum ption 09/02/2020 Allergies, Adverse Reactions, Alerts Substance Reaction Codes Entered Date Inactivated Date Status * NO KNOWN FOOD ALLERGIES Rtxolkm5807/13/2023No Inactive DateActiveLISINOPRILRxNorm: 451750802/12/2020 Inactive DateActiveMetformin SAxCzgtmig60/28/2020 Inactive DateActive* NO KNOWN ENVIRONMENTAL VWQQISBQUBannjzk85/27/2024 Inactive DateActive Problems Condition Codes Effective Dates [...] planning - to document end of life mchfhuaefxiNttxazg66/24/2024ctiveAdvance care planningICD-10: Z71.89 ICD-9: V65.4909ctiveAmputated toe of [...] E55.9 ICD-9: 268.909/4ActiveCallus of heelICD-10: L84 ICD-9: 44570/esolvedGout due to renal impairmentICD-10: M10.30 ICD-9: 274.1005/esolvedHyperhidrosis of palmsICD-10: L74.512 ICD-9: 705.2105esolvedHyperlipidemia, unspecifiedICD-10: E78.5 ICD-9: 272.405/esolvedOther predatory animal exterminator (current) drug therapyICD-10: Z79.899 ICD-9: V58.6905esolvedPain of [...] tagICD-10: L91.8 ICD-9: 701.904/esolvedCoronary artery disease involving [place] coronary artery of [place] heart, angina presence unspecifiedICD-10: I25.10 ICD-9: 414.0102/ctiveInappropriate sexual behaviorICD-10: Z72.89 ICD-9: 312.8910/ctivePre-op evaluationICD-10: Z01.818 ICD-9: V72.8403/ctiveSecondary hypertensionICD-10: I15.9 ICD-9: 405.99033ActiveDepressionICD-10: F32.9 ICD-9: 83634/esolvedDVT (deep venous thrombosis)ICD-10: I82.409 ICD-9: 453.4009/esolvedEncounter for [...] to other viral communicable diseasesICD-10: Z20.828 ICD-9: V01.79022798EhtapyvoSfsxtnehFifccio88/28/2020ActiveDiabetes mellitus Type 5Iqfoxoh45/28/2020ActiveAnemia in chronic kidney diseaseICD-10: D63.1 02/12/2020ResolvedHyperlipidemia, unspecifiedICD-10: [...] Insulin 100 unit/mL (3 mL) subcutaneous RxNorm: 2819002 Inject 40 Unit(s) Subcutaneous BID 03/07/20 025 Active Please dispense one month supply. Humulin R U-500 (Concentrated) Insulin 500 unit/mL subcutaneous soln RxNorm: 715793 Inject 100 Unit(s) Subcutaneous AC before meals [...] PRN) to be use with new Accu [place] meter 03/04/20 Inactive ok to substitute with any covered alternative test strip nystatin 100,000 unit/gram topical powder RxNorm: 936746 Apply 1 Application Topical BID as needed [...] (Concentrated) Insulin 500 unit/mL subcutaneous soln RxNorm: 552306 Inject 100 Unit(s) Subcutaneous TID 02/17/20 24 024 Inactive Humulin R U-500 (Concentrated) Insulin 500 unit/mL subcutaneous soln RxNorm: 066442 Inject 100 Unit(s) Subcutaneous TID 02/10/20 24 024 Inactive Basaglar KwikPen U-100 Insulin 100 unit/mL (3 mL) subcutaneous RxNorm: 4060006 Inject 30 Unit(s) Subcutaneous BID 02/10/20 24 024 Inactive Please dispense one month supply. pregabalin 100 mg capsule RxNorm: 712810 Take 1 Capsule(s) Oral QAM every morning 02/07/20 24 024 Active isosorbide mononitrate ER 60 mg tablet,extended release 24 hr RxNorm: 814515 Take 1 Tablet(s) Oral QD 02/01/20 24 025 Active aripiprazole 15 mg tablet RxNorm: 261258 Take 1/2 Tablet(s) Oral QD 02/01/20 24 025 Active torsemide 20 mg tablet RxNorm: 492163 1 TAB ORALLY DAILY (DX: EDEMA) 01/27/20 24 No Stop Date Active potassium chloride ER 20 mEq tablet,extended release(part/cryst) RxNorm: 2839698 2 TABS (40MEQ) ORALLY TWICE DAILY (DX: HYPOKALEMIA) 01/27/20 No Stop Date Active cephalexin 500 mg capsule RxNorm: 038387 Take 1 Capsule(s) Oral QID 12/17/19 24 Inactive cephalexin 500 mg capsule RxNorm: 798456 Take 1 Capsule(s) Oral QID 12/17/19 24 Inactive acetaminophen 500 mg tablet RxNorm: 557464 (MAX APAP:4GM/24HR) Take 1 Tablet(s) Oral TID as needed for pain 12/10/19 24 Active torsemide 20 mg tablet RxNorm: 514529 Take 1 Tablet(s) Oral QD 10/26/19 24 024 Inactive potassium chloride ER 20 mEq tablet,extended release RxNorm: 19800522 Take 2 Tablet(s) Oral BID 10/26/19 24 Active torsemide 20 mg tablet RxNorm: 544787 Take 1 Tablet(s) Oral QD 10/26/19 24 024 Inactive potassium chloride ER 20 mEq tablet,extended release RxNorm: 621755 Take 2 Tablet(s) Oral BID 10/26/19 24 Inactive Artificial Tears (PF) 0.1 %-0.3 % drops in a dropperette RxNorm: 518852 Apply 1-2 Drop(s) Both eyes BID as needed 09/28/19 24 025 Active erythromycin 5 mg/gram (0.5 %) eye ointment RxNorm: 966790 Apply 1 Application Both eyes QHS every night at bedtime Instill ~1 cm ribbon into affected eye 09/28/19 24 024 Inactive Artificial Tears (PF) 0.1 %-0.3 % drops in a dropperette RxNorm: 758357 Apply 1-2 Drop(s) Both eyes BID as needed 09/28/19 24 024 Inactive erythromycin 5 mg/gram (0.5 %) eye ointment RxNorm: 313631 Apply 1 Application Both eyes QHS every night at bedtime Instill ~1 cm ribbon into affected eye 09/28/19 24 Inactive acetaminophen 500 mg tablet RxNorm: 681283 (MAX APAP:4GM/24HR) Take 1 Tablet(s) Oral TID as needed for pain 09/24/19 24 024 Inactive carvedilol 25 mg tablet RxNorm: 555550 Take 1 Tablet(s) Oral QD 09/08/19 24 No Stop Date Active pregabalin 100 mg capsule RxNorm: 345778 Take 1 Capsule(s) Oral QAM every morning 09/07/19 24 024 Inactive rosuvastatin 40 mg tablet RxNorm: 511498 Take 1 Tablet(s) Oral QPM every evening 07/13/19 24 No Stop Date Active ezetimibe 10 mg tablet RxNorm: 225140 Take 1 Tablet(s) Oral QD 07/13/19 24 No Stop Date Active bisacodyl 10 mg rectal suppository RxNorm: 673645 Insert 1 Suppository Rectal QD as needed 07/13/19 24 No Stop Date Active polyethylene glycol 3350 17 gram/dose oral powder RxNorm: 798361 Take 17 Gram(s) Oral BID as needed mix in 4-8ox water 07/13/19 24 No Stop Date Active ketoconazole 2 % shampoo RxNorm: 751038 Apply 1 Application Topical UD as directed 07/13/19 24 No Stop Date Active Ozempic 1 mg/dose (4 mg/3 mL) subcutaneous pen injector RxNorm: 5400971 Inject 1 Milligram(s) Subcutaneous QW once a week 07/13/19 24 No Stop Date Active Guaifenesin AC 10 mg-100 mg/5 mL oral liquid RxNorm: 811904 Take 10 Milliliter(s) Oral Q4H every four hours as needed 07/13/19 24 No Stop Date Active ammonium lactate 12 % topical cream RxNorm: 587054 Apply 1 Application Topical BID 07/13/19 24 No Stop Date Active hydrocortisone 2.5 % topical cream RxNorm: 963884 Apply 1 Application Topical BID as needed 07/13/19 24 No Stop Date Active rosuvastatin 20 mg sprinkle capsule RxNorm: 2141535 Take 1 Capsule(s) Oral QD 07/13/19 24 No Stop Date Active Vascepa 1 gram capsule RxNorm: 3848027 Take 2 Capsule(s) Oral BID 07/13/19 24 No Stop Date Active venlafaxine ER 75 mg capsule,extended release 24 hr RxNorm: 207875 Take 3 Capsule(s) Oral QD 07/13/19 24 No Stop Date Active aripiprazole 15 mg tablet RxNorm: 563342 Take 1/2 Tablet(s) Oral QD 07/13/19 24 024 Inactive isosorbide mononitrate ER 60 mg tablet,extended release 24 hr RxNorm: 170713 Take 1 Tablet(s) Oral QD 07/13/19 24 024 Inactive Basaglar KwikPen U-100 Insulin 100 unit/mL (3 mL) subcutaneous RxNorm: 7446967 Inject 30U SubQ twice daily 07/07/19 24 024 Inactive Please dispense one month supply. Basaglar KwikPen U-100 Insulin 100 unit/mL (3 mL) subcutaneous RxNorm: 6069416 Inject 30U SubQ twice daily 07/07/19 24 024 Inactive Please dispense one month supply. pregabalin 150 mg capsule RxNorm: 570901 Take 1 Capsule(s) Oral QHS every night at bedtime 07/05/19 24 024 Inactive pregabalin 150 mg capsule RxNorm: 348119 Take 1 Capsule(s) Oral QHS every night at bedtime 07/05/19 24 024 Inactive polyethylene glycol 3350 17 gram/dose oral powder RxNorm: 674287 Take 1 Packet Oral QD as needed (1 packet = 17g) mix with 4-8oz of liquid 06/15/19 24 024 Inactive bisacodyl 10 mg rectal suppository RxNorm: 050043 Insert one suppository per rectum once daily as needed for constipation 06/15/19 24 024 Inactive bisacodyl 10 mg rectal suppository RxNorm: 665099 Insert one suppository per rectum once daily as needed for constipation 06/15/19 24 024 Inactive pregabalin 100 mg capsule RxNorm: 766425 Take 1 Capsule(s) Oral QAM every morning 04/27/20 23 024 Inactive Levemir FlexPen 100 unit/mL (3 mL) solution subcutaneous insulin pen RxNorm: 836161 Inject 30 Unit(s) Subcutaneous BID 04/27/20 024 Inactive rosuvastatin 40 mg tablet RxNorm: 189069 Take 1 Tablet(s) Oral QPM every evening 04/16/20 024 Inactive D/C rosuvastatin 20mg venlafaxine ER 75 mg capsule,extended release 24 hr RxNorm: 225380 Take 3 Capsule(s) Oral QD 04/14/20 023 Inactive pregabalin 100 mg capsule RxNorm: 642588 Take 1 Capsule(s) Oral QAM every morning [...] strip clotrimazole 1 % topical cream RxNorm: 839946 Take apply topically to abdominal folds twice daily for 14 days 03/12/20 024 Inactive Ozempic 1 mg/dose (4 mg/3 mL) subcutaneous pen injector RxNorm: 8982252 Inject 1 Milligram(s) Subcutaneous QW once a week 03/11/20 023 Inactive rosuvastatin 20 mg tablet RxNorm: 581925 Take 1 Tablet(s) Oral QD 02/26/20 023 Inactive d/c pravastatin 80mg Ozempic 1 mg/dose (4 mg/3 mL) subcutaneous pen injector RxNorm: 5084491 Inject 1 Milligram(s) Subcutaneous QW once a week 02/20/20 23 023 Inactive pregabalin 150 mg capsule RxNorm: 581521 Take 1 Capsule(s) Oral HS at bed time 02/19/20 23 023 Inactive pregabalin 100 mg capsule RxNorm: 521413 Take 1 Capsule(s) Oral QAM every morning 02/18/20 23 023 Inactive venlafaxine ER 75 mg capsule,extended release 24 hr RxNorm: 953556 Take 3 Capsule(s) Oral QD 02/04/20 23 023 Inactive FreeStyle Chema 2 Sensor kit RxNorm: use as directed 02/04/20 23 023 Inactive FreeStyle Chema 2 Sensor kit RxNorm: use as directed 02/04/20 23 024 Inactive fluconazole 150 mg tablet RxNorm: 978328 Take 1 Tablet(s) Oral on day 3 and on day 6 02/03/20 024 Inactive chlorthalidone 25 mg tablet RxNorm: 325382 Take 1 Tablet(s) Oral QAM every morning 02/03/20 No Stop Date Active venlafaxine ER 150 mg capsule,extended release 24 hr RxNorm: 501364 Take 1 Capsule(s) Oral QD 02/03/20 23 023 Inactive acetaminophen 500 mg tablet RxNorm: 146110 1 TABLET ORALLY 3 TIMES DAILY (MAX APAP:4GM/24HR) 12/15/19 23 023 Inactive clotrimazole 1 % topical cream RxNorm: 334968 apply 1g topically to top of feet and in between toes BID 12/09/19 23 023 Inactive potassium chloride ER 20 mEq tablet,extended release RxNorm: 990209 Take 1 Tablet(s) Oral BID 12/09/19 23 024 Inactive d/c 20mEq once daily (sent from hospital) nystatin 100,000 unit/gram topical powder RxNorm: 320600 APPLY TO AFFECTED AREAS TOPICALLY 2 TIMES DAILY 11/21/19 23 023 Inactive Nystop 100,000 unit/gram topical powder RxNorm: 171517 Apply to abd folds, under breasts and L side of groin Topical BID x 14 days, then BID PRN 11/20/19 23 023 Inactive dx: yeast dermatitis Bengay Ultra Strength 4 %-30 %-10 % topical cream RxNorm: 112868 Apply 1 Gram(s) Topical QID PRN to feet and legs for neuropathic pain 11/11/19 23 024 Inactive clotrimazole 1 % topical cream RxNorm: 166062 Apply 1/2 Gram(s) Topical BID Apply to affected areas of groin, periarea, and abdominal topically 2 times daily 11/10/19 23 023 Inactive hydrocortisone 2.5 % topical cream RxNorm: 507302 Apply 1/2 Gram(s) Topical BID as needed 11/10/19 024 Inactive Levemir FlexPen 100 unit/mL (3 mL) solution subcutaneous insulin pen RxNorm: 954715 Inject 30 Unit(s) Subcutaneous BID 10/07/19 023 Inactive Humulin R U-500 (Concentrated) Insulin 500 unit/mL subcutaneous soln RxNorm: 711764 Inject 100 Unit(s) Subcutaneous TID 10/07/19 024 Inactive Ozempic 0.25 mg or 0.5 mg (2 mg/3 mL) subcutaneous pen injector RxNorm: 8829933 Inject 1/2 Milligram(s) Subcutaneous QW once a week 10/07/19 024 Inactive aripiprazole 15 mg tablet RxNorm: 514819 1/2 TAB (7.5MG) ORALLY DAILY (DX:MAJOR DEPRESSIVE DISORDER) 09/23/19 23 023 Inactive Accu-Chek Guide test strips RxNorm: Use 1 Test Strip QID 09/15/19 23 023 Inactive ok to substitute with any covered alternative test strip Lancets,Thin 28 gauge RxNorm: Use 1 as directed QID 09/15/19 23 023 Inactive torsemide 20 mg tablet RxNorm: 018452 Take 1 Tablet(s) Oral BID 09/09/19 23 024 Inactive d/c once daily dosing carvedilol 25 mg tablet RxNorm: 114603 Take 1 Tablet(s) Oral QD 08/25/19 024 Inactive pregabalin 150 mg capsule RxNorm: 977836 1 Capsule(s) Oral HS at bed time 08/18/19 023 Inactive pregabalin 100 mg capsule RxNorm: 281487 1 Capsule(s) Oral QAM every morning 08/18/19 023 Inactive carvedilol 25 mg tablet RxNorm: 554452 1 Tablet(s) Oral QD 07/28/19 23 023 Inactive lisinopril 20 mg tablet RxNorm: 615789 Give 1 Tablet(s) Oral QD 07/28/19 23 023 Inactive Lyrica 150 mg capsule RxNorm: 744702 Take 1 Capsule(s) Oral QHS every night at bedtime 07/19/19 23 023 Inactive d/c 100mg dose Diflucan 150 mg tablet RxNorm: 899371 Take 1 Tablet(s) Oral QD repeat on day 3 and 6 07/19/19 23 023 Inactive pregabalin 100 mg capsule RxNorm: 512416 Take 1 Capsule(s) Oral QAM every morning 07/19/19 023 Inactive gatifloxacin 0.5 % eye drops RxNorm: 244602 Instill 1 Drop(s) as directed TID Instill 1 drop in to affected eye(s) starting 1 day prior to surgery and continue until gone (do not exceed 4 weeks). 07/13/19 23 023 Inactive carvedilol 25 mg tablet RxNorm: 942972 2 Tablet(s) Oral BID 07/13/19 023 Inactive Humulin R Regular U-100 Insulin 100 unit/mL injection solution RxNorm: 617878 85 Unit(s) Injection TID 07/13/19 23 023 Inactive ketorolac 0.5 % eye drops RxNorm: 424851 Instill 1 Drop(s) as directed QID Instill 1 drop into affected eye(s) 4 times daily starting 1 day prior to surgery and continue until gone (do not exceed 4 weeks). 07/13/19 023 Inactive Diflucan 150 mg tablet RxNorm: 416713 Take 1 Tablet(s) Oral QD repeat on day 3 and 6 06/30/19 23 023 Inactive Accu-Chek Guide test strips RxNorm: Use 1 Test Strip QID Use 1 test strip to monitor blood glucose 4 times daily and as needed. Dx:E11.42. 06/23/19 23 023 Inactive ok to substitute with any covered alternative test strip dextromethorphan-gu aifenesin 10 mg-100 mg/5 mL oral liquid RxNorm: 646980 Take 10 Milliliter(s) Oral every 4 hours as needed for cough 06/19/19 23 023 Inactive dextromethorphan-gu aifenesin 10 mg-100 mg/5 mL oral liquid RxNorm: 875904 Take 10 Milliliter(s) Oral every 4 hours as needed for cough 06/19/19 023 Inactive Lyrica 150 mg capsule RxNorm: 402057 Take 1 Capsule(s) Oral QHS every night at bedtime 06/18/19 023 Inactive d/c 100mg dose aripiprazole 15 mg tablet RxNorm: 861148 /2 TAB (7.5MG) ORALLY DAILY (DX:MAJOR DEPRESSIVE DISORDER) 06/05/19 023 Inactive pregabalin 100 mg capsule RxNorm: 761013 1 Capsule(s) Oral QAM every morning 06/02/19 023 Inactive Banophen 50 mg capsule RxNorm: 0766832 Take 1 Capsule(s) Oral Q6H every 6 hours as needed 05/19/19 23 No Stop Date Active Novolog Flexpen U-100 Insulin aspart 100 unit/mL (3 mL) subcutaneous RxNorm: 8074635 Inject 10 Unit(s) Subcutaneous QHS every night at bedtime with nighttime snack 04/08/20 022 Inactive Novolog Flexpen U-100 Insulin aspart 100 unit/mL (3 mL) subcutaneous RxNorm: 4584805 Inject 42 Unit(s) Subcutaneous TID in addition to sliding scale 04/08/20 022 Inactive d/c 36u albuterol sulfate HFA 90 mcg/actuation aerosol inhaler RxNorm: 4880874 Take 2 Puff(s) Inhalation Q4H every four hours as needed as needed for SOB, cough, or wheezing 04/07/20 030 Active Banophen 50 mg capsule RxNorm: 8721500 Take 1 Capsule(s) Oral Q6H every 6 hours as needed 04/06/20 023 Inactive diphenhydramine 50 mg tablet RxNorm: 3028205 Take 1 Tablet(s) Oral Q6H every 6 hours as needed 04/06/20 22 022 Inactive diphenhydramine 50 mg tablet RxNorm: 2606033 1 Tablet(s) Oral Q6H every 6 hours as needed 04/06/20 22 022 Inactive Abilify 15 mg tablet RxNorm: 824482 1/2 Tablet(s) Oral QD 03/10/20 22 023 Inactive Shingrix (PF) 50 mcg/0.5 mL intramuscular suspension, kit RxNorm: 1555752 Administer 1/2 Milliliter(s) Intramuscular QD one time shingrix step 2 ( step 1 given 11/04/21) WITH needle - Nursing please administer upon arrival and once administered post a bridge message with date of administration, pharmacist manager, expiration date, and lot# so we can update [facility] 02/18/20 22 022 Inactive dispense with needle Shingrix (PF) 50 mcg/0.5 mL intramuscular suspension, kit RxNorm: 0390939 Administer 1/2 Milliliter(s) Intramuscular QD one time shingrix step 2 ( step 1 given 11/04/21) WITH needle - Nursing please administer upon arrival and once administered post a bridge message with date of administration, pharmacist manager, expiration date, and lot# so we can update [facility] 02/18/20 22 022 Inactive dispense with needle polyethylene glycol 3350 17 gram/dose oral powder RxNorm: 167971 Take 17=1 capful Gram(s) Oral QD mix with 4-8oz of liquid 01/08/20 22 023 Inactive take this in addition to BID prn order Lyrica 100 mg capsule RxNorm: 664771 Take 1 Capsule(s) Oral QAM every morning 01/08/20 22 022 Inactive d/c 50mg dose acetaminophen 500 mg tablet RxNorm: 186976 Take 1 Tablet(s) Oral TID 01/08/20 22 022 Inactive d/c PRN order Lyrica 150 mg capsule RxNorm: 673514 Take 1 Capsule(s) Oral QHS every night at bedtime 01/08/20 22 023 Inactive d/c 100mg dose Abilify 5 mg tablet RxNorm: 366368 Take 1 Tablet(s) Oral QD take 1 tab po QD #30 refill 5 dx: MDD 12/12/19 22 022 Inactive Abilify 5 mg tablet RxNorm: 111892 Take 1 Tablet(s) Oral QD take 1 tab po QD #30 refill 5 dx: MDD 12/12/19 22 022 Inactive Novolog Flexpen U-100 Insulin aspart 100 unit/mL (3 mL) subcutaneous RxNorm: 0327736 Inject 42 Unit(s) Subcutaneous TID in addition to sliding scale 12/10/19 22 022 Inactive d/c 36u chlorthalidone 25 mg tablet RxNorm: 183340 Take 1 Tablet(s) Oral QAM every morning 12/10/19 22 023 Inactive pregabalin 50 mg capsule RxNorm: 515606 Take 1 Capsule(s) Oral QAM every morning 11/12/19 22 022 Inactive tetanus-diphtheria toxoids-Td 2 Lf unit-2 Lf unit/0.5 mL IM suspension RxNorm: 139 Take 0.5 Miscellaneous Intramuscular 11/12/19 22 022 Inactive need tdap - nursing to administer upon arrival pregabalin 50 mg capsule RxNorm: 738749 Take 1 Capsule(s) Oral QAM every morning 10/16/19 22 022 Inactive pregabalin 50 mg capsule RxNorm: 864292 Take 1 Capsule(s) Oral QAM every morning 10/16/19 22 022 Inactive pregabalin 50 mg capsule RxNorm: 099272 1 Capsule(s) Oral QAM every morning 10/15/19 22 022 Inactive Shingrix (PF) 50 mcg/0.5 mL intramuscular suspension, kit RxNorm: 9296623 Administer 1/2 Milliliter(s) Intramuscular one time Nursing please administer upon arrival and once administered post a bridge message with date of administration, pharmacist manager, expiration date, and lot# so we can update [facility]. 10/09/19 22 022 Inactive shingrix step 1 Shingrix (PF) 50 mcg/0.5 mL intramuscular suspension, kit RxNorm: 1109307 Administer 1/2 Milliliter(s) Intramuscular one time Nursing please administer upon arrival and once administered post a bridge message with date of administration, pharmacist manager, expiration date, and lot# so we can update [facility]. 10/09/19 22 022 Inactive shingrix step 1 cholecalciferol (vitamin D3) 1,250 mcg (50,000 unit) capsule RxNorm: 124744 Take 1 Capsule(s) Oral QW once a [...] aspart 100 unit/mL (3 mL) subcutaneous RxNorm: 3809230 Inject 10 Unit(s) Subcutaneous QHS every night at bedtime with nighttime snack 10/08/19 22 022 Inactive Shingrix (PF) 50 mcg/0.5 mL intramuscular suspension, kit RxNorm: 0289630 ADMINISTER 2-DOSE SERIES PER CDC GUIDELINES 10/08/19 22 022 Active Shingrix (PF) 50 mcg/0.5 mL intramuscular suspension, kit RxNorm: 0951149 ADMINISTER 2-DOSE SERIES PER CDC GUIDELINES 10/08/19 22 022 Inactive Novolog Flexpen U-100 Insulin aspart 100 unit/mL (3 mL) subcutaneous RxNorm: 9491311 Inject 36 Unit(s) Subcutaneous TID in addition to sliding scale 10/08/19 22 Inactive Novofine Autocover 30 gauge x 1/3 needle RxNorm: Use 1 Miscellaneous UD as directed Use 1 needle as directed to administer insulin 5 times a day Dx:E11.42. 10/03/19 22 022 Inactive ok to substitute with any covered alternative pen needle benzoyl peroxide 10 % topical cleanser RxNorm: 993365 Apply 1 Application Topical QD apply to face, wash rinse and dry once daily (may change to QOD if drying) 08/19/19 22 022 Inactive (%covered by insurance) #60ml refill 11 dx: acne benzoyl peroxide 10 % topical cleanser RxNorm: 562895 Apply 1 Application Topical QD apply to face, wash rinse and dry once daily (may change to QOD if drying) 08/19/19 22 022 Inactive (%covered by insurance) #60ml refill 11 dx: acne benzoyl peroxide 10 % topical cleanser RxNorm: 132710 Apply 1 Application Topical QD apply to face, wash rinse and dry once daily (may change to QOD if drying) 08/19/19 022 Inactive (%covered by insurance) #60ml refill 11 dx: acne Lyrica 50 mg capsule RxNorm: 286447 Take 1 Capsule(s) Oral QAM every morning Take 1 capsule by mouth once daily 08/19/19 022 Inactive benzoyl peroxide 10 % topical cleanser RxNorm: 803533 Apply 1 Application Topical QD apply to face, wash rinse and dry once daily (may change to QOD if drying) 08/19/19 022 Inactive (%covered by insurance) #60ml refill 11 dx: acne Lyrica 100 mg capsule RxNorm: 869144 Take 1 Capsule(s) Oral QHS every night at bedtime Take 1 capsule by mouth once daily at bedtime 08/19/19 22 022 Inactive Lyrica 100 mg capsule RxNorm: 507721 Take 1 Capsule(s) Oral QHS every night at bedtime Take 1 capsule by mouth once daily at bedtime 08/16/19 22 022 Inactive Lyrica 50 mg capsule RxNorm: 132307 Take 1 Capsule(s) Oral QAM every morning Take 1 capsule by mouth once daily 08/16/19 22 022 Inactive Levemir FlexTouch U-100 Insulin 100 unit/mL (3 mL) subcutaneous pen RxNorm: 859497 Inject 86 Unit(s) Subcutaneous BID 08/05/19 22 022 Inactive d/c 83units BID Lyrica 100 mg capsule RxNorm: 529229 Take 1 Capsule(s) Oral QHS every night at bedtime Take 1 capsule by mouth once daily at bedtime 07/14/19 22 022 Inactive Lyrica 50 mg capsule RxNorm: 790109 Take 1 Capsule(s) Oral QAM every morning Take 1 capsule by mouth once daily 07/14/19 22 Inactive Levemir FlexTouch U-100 Insulin 100 unit/mL (3 mL) subcutaneous pen RxNorm: 353714 Inject 83 Unit(s) Subcutaneous BID 07/08/19 22 [...] test strip hydralazine 50 mg tablet RxNorm: 267696 Take 1 Tablet(s) Oral QID 05/05/20 Inactive venlafaxine ER 225 mg tablet,extended release 24 hr RxNorm: 820517 Take 1 Tablet(s) Oral QD 05/05/20 021 Inactive venlafaxine ER 225 mg tablet,extended release 24 hr RxNorm: 578614 Take 1 Tablet(s) Oral QD 05/05/20 022 Inactive isosorbide mononitrate ER 30 mg tablet,extended release 24 hr RxNorm: 651824 Take 1 Tablet(s) Oral QD 05/05/20 024 Inactive hydralazine 50 mg tablet RxNorm: 224142 Take 1 Tablet(s) Oral QID 05/05/20 Inactive aspirin 81 mg tablet,delayed release RxNorm: 662396 Take 1 Tablet(s) Oral QD 03/31/20 022 Inactive Vitamin D2 1,250 mcg (50,000 unit) capsule RxNorm: 2740170 Take 1 Capsule(s) Oral QW once a week x 12 weeks 03/31/20 Inactive Vitamin D2 1,250 mcg (50,000 unit) capsule RxNorm: 7307823 Take 1 Capsule(s) Oral QW once a week 03/31/20 021 Inactive Zetia 10 mg tablet RxNorm: 629140 Take 1 Tablet(s) Oral QD 03/31/20 024 Inactive Zetia 10 mg tablet RxNorm: 415495 Take 1 Tablet(s) Oral QD 03/31/20 Inactive hydralazine 25 mg tablet RxNorm: 607734 Take 1 Tablet(s) Oral QID 03/31/20 21 021 Inactive hydralazine 25 mg tablet RxNorm: 792079 Take 1 Tablet(s) Oral QID 03/31/20 021 Inactive hydralazine 10 mg tablet RxNorm: 493334 Take 1 Tablet(s) Oral QID 03/03/20 021 Inactive cephalexin 500 mg tablet RxNorm: 218863 Take 1 Tablet(s) Oral QID 02/27/20 021 Inactive cephalexin 500 mg tablet RxNorm: 540012 Take 1 Tablet(s) Oral QID 02/27/20 021 Inactive lisinopril 40 mg tablet RxNorm: 911585 Take 1 Tablet(s) Oral QD 02/11/20 023 Inactive Eliquis 5 mg tablet RxNorm: 0221028 Take 1 Tablet(s) Oral BID 01/05/20 21 022 Inactive Eliquis 5 mg tablet RxNorm: 4158606 Take 2 Tablet(s) Oral QD 01/01/20 21 021 Inactive Lyrica 50 mg capsule RxNorm: 437996 Take 1 Capsule(s) Oral QAM every morning 12/24/19 021 Inactive Lyrica 100 mg capsule RxNorm: 522529 Take 1 Capsule(s) Oral QHS every night at bedtime 12/24/19 021 Inactive clotrimazole 1 % topical cream RxNorm: 452921 Apply to right foot and toes Topical BID 12/04/19 21 023 Inactive metoprolol succinate ER 200 mg tablet,extended release 24 hr RxNorm: 655173 Take 1 Tablet(s) Oral QD 12/04/19 023 Inactive ciprofloxacin 500 mg tablet RxNorm: 279864 Take 1 Tablet(s) Oral QD 11/30/19 021 Inactive DX ofloxacin otic drops Accu-Chek Guide test strips RxNorm: USE 1 TO CHECK GLUCOSE 4 TIMES DAILY AND NEEDED 11/15/19 21 023 Inactive Blood Glucose Test strips RxNorm: Use 1 Test Strip QID at PRN 11/05/19 21 023 Inactive E11.42 lisinopril 30 mg tablet RxNorm: 960606 Take 1 Tablet(s) Oral QD 10/30/19 21 021 Inactive lisinopril 20 mg tablet RxNorm: 874966 Take 1 Tablet(s) Oral QD 10/23/19 21 021 Inactive lisinopril 20 mg tablet RxNorm: 499727 Take 1 Tablet(s) Oral QD 10/23/19 21 021 Inactive lisinopril 10 mg tablet RxNorm: 234801 Take 1 Tablet(s) Oral QD 10/02/19 21 021 Inactive icosapent ethyl 1 gram capsule RxNorm: 5113546 Take 2 Capsule(s) (2 gm) Oral BID with meals 09/12/19 21 024 Inactive Okay to dispense one 2gm tab if you have that available. icosapent ethyl 1 gram capsule RxNorm: 5732624 Take 2 Capsule(s) Oral BID 09/12/19 21 021 Inactive Okay to dispense one 2gm tab if you have that available. amlodipine 10 mg tablet RxNorm: 503568 Take 1 Tablet(s) Oral QD 09/04/19 022 Inactive aspirin 81 mg tablet,delayed release RxNorm: 182434 Take 1 Tablet(s) Oral QD 09/04/19 21 021 Inactive Levemir FlexTouch U-100 Insulin 100 unit/mL (3 mL) subcutaneous pen RxNorm: 919677 Inject 150 Unit(s) Subcutaneous BID 09/04/19 21 022 Inactive venlafaxine ER 150 mg tablet,extended release 24 hr RxNorm: 649585 Take 1 Tablet(s) Oral QD 09/04/19 21 021 Inactive clotrimazole-betame thasone 1 %-0.05 % topical cream RxNorm: 354020 Apply to rash on red area on left abdomen/chest Topical BID 08/10/19 21 021 Inactive amlodipine 5 mg tablet RxNorm: 273088 Take 1 Tablet(s) Oral QD 07/31/19 21 021 Inactive cephalexin 500 mg tablet RxNorm: 690731 Take 1 Tablet(s) Oral BID BID - Twice Daily 07/31/19 21 021 Inactive Start 08/01/20 pantoprazole 40 mg tablet,delayed release RxNorm: 866177 Take 1 Tablet(s) Oral QAM every morning 07/08/19 022 Inactive senna 8.6 mg tablet RxNorm: 792433 Take 1 Tablet(s) Oral QD 07/08/19 21 022 Inactive carbamazepine 200 mg tablet RxNorm: 371365 Take 1 Tablet(s) Oral BID 07/08/19 022 Inactive clopidogrel 75 mg tablet RxNorm: 622758 Take 1 Tablet(s) Oral QD 07/08/19 021 Inactive Blood Glucose Test strips RxNorm: Use 1 Test Strip QID at PRN 07/08/19 Inactive E11.42 Novolog Flexpen U-100 Insulin aspart 100 unit/mL (3 mL) subcutaneous RxNorm: 3378172 Administer per sliding scale Milliliter(s) Subcutaneous TID 151-200: 10 u; 201-250: 20 u; 251-300: 30 u; 301-350: 40 u; 351-400: 50 u. 07/08/19 21 022 Inactive lisinopril 5 mg tablet RxNorm: 513457 Take 1 Tablet(s) Oral QD 07/08/19 021 Inactive Novolog Flexpen U-100 Insulin aspart 100 unit/mL (3 mL) subcutaneous RxNorm: 5354212 Inject 85 Unit(s) Subcutaneous TID 07/08/19 022 Inactive pravastatin 80 mg tablet RxNorm: 756210 Take 1 Tablet(s) Oral QHS every night at bedtime 07/08/19 023 Inactive clotrimazole 1 % topical cream RxNorm: 599513 Apply to bilateral groin areas Topical BID 07/08/19 022 Inactive metoprolol succinate ER 200 mg tablet,extended release 24 hr RxNorm: 420542 Take 1 Tablet(s) Oral QD 07/08/19 21 021 Inactive Vitamin D3 25 mcg (1,000 unit) tablet RxNorm: 740632 Take 1 Tablet(s) Oral QD 07/08/19 021 Inactive isosorbide dinitrate 30 mg tablet RxNorm: 335687 Take 1 Tablet(s) Oral QD 07/08/19 021 Inactive Levemir FlexTouch U-100 Insulin 100 unit/mL (3 mL) subcutaneous pen RxNorm: 751038 Inject 140 Unit(s) Subcutaneous BID 07/08/19 021 Inactive torsemide 20 mg tablet RxNorm: 454152 Take 1 Tablet(s) Oral QD 07/08/19 023 Inactive venlafaxine 75 mg tablet RxNorm: 808188 Take 1 Tablet(s) Oral QD 07/08/19 021 Inactive acetaminophen 500 mg tablet RxNorm: 302544 Take 1 Tablet(s) Oral TID as needed for headache 06/18/19 021 Inactive acetaminophen 500 mg tablet RxNorm: 736339 Take 1 Tablet(s) Oral TID as needed for headache 06/18/19 021 Inactive Lyrica 100 mg capsule RxNorm: 248751 Take 1 Capsule(s) Oral QHS every night at bedtime 06/11/19 021 Inactive Lyrica 50 mg capsule RxNorm: 608288 Take 1 Capsule(s) Oral QAM every morning 06/10/19 021 Inactive hydrocortisone 2.5 % topical cream RxNorm: 328279 Apply to bilateral groin creases Topical BID 05/15/20 20 021 Inactive clotrimazole 1 % topical cream RxNorm: 677988 Apply to bilateral groin areas Topical BID 05/15/20 20 021 Inactive Lyrica 50 mg capsule RxNorm: 089565 Take 1 Capsule(s) Oral QAM every morning 05/14/20 20 020 Inactive Lyrica 100 mg capsule RxNorm: 755152 Take 1 Capsule(s) Oral QHS every night [...] Inactive Nystop 100,000 unit/gram topical powder RxNorm: 494370 Apply to abd folds, under breasts and L side of groin Topical BID x 14 days, then BID PRN 04/08/20 20 Inactive dx: yeast dermatitis Lyrica 100 mg capsule RxNorm: 044348 Take 1 Capsule(s) Oral QHS every night at bedtime 03/13/20 20 Inactive Lyrica 50 mg capsule RxNorm: 051339 Take 1 Capsule(s) Oral QAM every morning 03/13/20 20 Inactive ketoconazole 2 % shampoo RxNorm: 593650 Apply Topical two times a week with showers 03/11/20 20 Inactive cholecalciferol (vitamin D3) 50 mcg (2,000 unit) tablet RxNorm: 744579 Take 1 Tablet(s) Oral QD 03/11/20 20 021 Inactive Zetia 10 mg tablet RxNorm: 660197 Take 1 Tablet(s) Oral QD 03/07/20 20 021 Inactive Zetia 10 mg tablet RxNorm: 923047 Take 1 Tablet(s) Oral QD 03/07/20 20 Inactive Lyrica 50 mg capsule RxNorm: 404341 Take 1 Capsule(s) Oral QAM every morning 02/15/20 20 Inactive Lyrica 100 mg capsule RxNorm: 998417 Take 1 Capsule(s) Oral QHS every night at bedtime 02/15/20 20 Inactive Lyrica 100 mg capsule RxNorm: 965802 Take 1 Capsule(s) Oral QHS every night at bedtime 02/15/20 20 Inactive Lyrica 50 mg capsule RxNorm: 402676 Take 1 Capsule(s) Oral QAM every morning 02/15/20 20 020 Inactive metoprolol succinate ER 200 mg tablet,extended release 24 hr RxNorm: 035854 Take 1 Tablet(s) Oral QD 08/11 Activeloperamide 2 mg capsuleRxNorm: 958764Gwwl 1 Capsule(s) Oral QID as needed 06/12/2021ctivehydralazine 50 mg tabletRxNorm: 655673Thsg 1 Tablet(s) Oral QID 08/11/2022ctiveSoft Touch LancetsRxNorm:afplnbgdqpigk03/19/2024ctive venlafaxine ER 75 mg capsule,extended release 24 hrRxNorm: 778118Sqer 3 Capsule(s) Oral QD/Inactivepolyethylene glycol 3350 17 gram/dose oral powderRxNorm: 875492Kmuh 17=1 capful Gram(s) Oral BID as needed mix with 4-8oz of rcxosl46/Inactiveicosapent ethyl 1 gram capsuleRxNorm: 7622168Wzwm 2 Capsule(s) (2 gm) Oral BID with meals10/06/2022 10/05/2022InactiveOkay to dispense one 2gm tab if you have that available. Levemir FlexTouch U-100 Insulin 100 unit/mL (3 mL) subcutaneous penRxNorm: 325521Xjskwu 80 Unit(s) Subcutaneous BID/InactiveNovolog Flexpen U-100 Insulin aspart 100 unit/mL (3 mL) subcutaneousRxNorm: 1325912 Insert 30 Unit(s) Subcutaneous TID with meals/Inactive [...] Codes Status Date Appointment: Brian Munson WPtel: [address] [place], [place] [phone] [facility]ment: Harrison Munson WPtel: [address] [place], [place] [phone] [place]/U001/11/2024ppointment: Sandra Clark WPtel: [address] [place], [place] [phone] [facility] Follow Up12/09/2022ppointment: Tapan Shirley WPtel: [address] [place], [place] [phone] USTCM10/26/2022Referral: [facility] WPtel: [address] , [address] [id number] USReferralRecords Nlirwtrp40/08/2023ppointment: Tapan Shirley WPtel: [address] [facility] [address] [id number] USF/U008/11/2022ppointment: Tapan Shirley WPtel: [address] [facility] [id number] USF/U007/14/2022ppointment: Tapan Shirley WPtel: [address] [facility] [address] [id number] USF/2Referral: [facility] [address] [id number] HKYrdxaiknRwqpdjhtn74/12/2022Referral: General CardiologyReferralCompleted 1Referral: General PsychologistReferralClosedReferral: General PsychiatristReferralPatient/Family Scheduling AppointmentReferral: General Physical MedicineReferralFacility Scheduling Appointment Instructions Comment Date Leonid is a Male being seen living at [facility]. Initial [facility] visit 01/2020. PMHx including DMII, CAD w/ 5 stents, Depression, Seizure Disorder and CKD stage 3. He moved into [facility] in 12/2019 but after a hospitalization 05/2021 he moved to the [facility] to have closer nursing attention. Sister Jyotsna involved in his care cell# [phone] Guardian: Giulia (tapan met in person 09/01/21), [...] note from 11.08.2023 at [facility] (follow up 6 months)Colon & Rectal Surgery visit scheduled for 03/08/24 with Matilde Pérez PA-C. 02/08/2024
--- OUTSIDE RECORDS SUMMARY | 2024-03-09 00:42 | XMS_ITS | CCD ---
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, [facility] Chronic Care Management U navailable Summary Purpose DataExchange Insurance Providers Payer name Policy type / Coverage type Covered green party ID Effective Begin Date Effective End Date [place] [id number] Unknown Unknown Medicaid [place] B [id number] Unknown Unknown Family history Sister Brittany Suggs Diagnosis Age At Onset No Family Disease Entered N/A Runs in the family Diagnosis Age At Onset No Known Diseases N/A Sister Blanka Mcduffie Diagnosis Age At Onset No Family Disease Entered N/A Social History Social History Element Codes Description Effec tive Dates Tobacco history SNOMED CT: 333147536 Never smoker 01/16 Sexually Active? Unknown No [...] 10/07/2021 Living arrangements Unknown Longterm 09/03/[address]: 433055841 No Alcohol Consum ption 09/02/2020 Allergies, Adverse Reactions, Alerts Substance Reaction Codes Entered Date Inactivated Date Status * NO KNOWN FOOD ALLERGIES Bhvcpek3907/13/2023No Inactive DateActiveLISINOPRILRxNorm: 1758050No Inactive DateActiveMetformin ABkAepvprp19/28/2020No Inactive DateActive* NO KNOWN ENVIRONMENTAL [id number]/27/2024No Inactive DateActive Problems Condition Codes Effective Dates [...] planning - to document end of life hazydnbrgrjKjsgfav38ctiveAdvance care planningICD-10: Z71.89 ICD-9: V65.4909/ctiveAmputated toe of [...] E55.9 ICD-9: 268.909/ctiveCallus of heelICD-10: L84 ICD-9: 48951/esolvedGout due to renal impairmentICD-10: M10.30 ICD-9: 274.1005esolvedHyperhidrosis of palmsICD-10: L74.512 ICD-9: 705.21010/12/2023esolvedHyperlipidemia, unspecifiedICD-10: E78.5 ICD-9: 272.405/4ResolvedOther senior living (current) drug therapyICD-10: Z79.899 ICD-9: V58.6905esolvedPain of [...] tagICD-10: L91.8 ICD-9: 701.904esolvedCoronary artery disease involving [place] coronary artery of [place] heart, angina presence unspecifiedICD-10: I25.10 ICD-9: 414.0102/ctiveInappropriate sexual behaviorICD-10: Z72.89 ICD-9: 312.8910/ctivePre-op evaluationICD-10: Z01.818 ICD-9: V72.8403/ctiveSecondary hypertensionICD-10: I15.9 ICD-9: 405.9903/ctiveDepressionICD-10: F32.9 ICD-9: 48765/esolvedDVT (deep venous thrombosis)ICD-10: I82.409 ICD-9: 453.4009/2ResolvedEncounter for [...] 285.2105/1ResolvedChronic kidney disease, stage 3 unspecifiedICD- 10: N18.3004esolvedContact with and (suspected) exposure to other viral communicable diseasesICD-10: Z20.828 ICD-9: V01.79021720MptghbfhYmwuoratSqojkpx59/28/2020ActiveDiabetes mellitus Type 9Jqlbcyk29/28/2020ActiveAnemia in chronic kidney diseaseICD-10: D63.1 02/12/2020ResolvedHyperlipidemia, unspecifiedICD-10: E78.509Resolved Medications Medication Codes Instructions Start Date Stop Date Status Fill Instructions Lancets,Thin 28 gauge RxNorm: Use 1 as directed TID lancet 03/08/20 025 Active Lancets,Thin 28 gauge RxNorm: Use 1 as directed TID lancet 03/08/20 024 Inactive Pen Needle 30 gauge x [...] Insulin 100 unit/mL (3 mL) subcutaneous RxNorm: 7892585 Inject 40 Unit(s) Subcutaneous BID 03/07/20 Active Please dispense one month supply. Humulin R U-500 (Concentrated) Insulin 500 unit/mL subcutaneous soln RxNorm: 348733 Inject 100 Unit(s) Subcutaneous AC before meals Three times daily before meals. 03/07/20 Active Accu-Chek Guide Glucose Meter RxNorm: Use 1 Miscellaneous UD as directed Use glucose meter to monitor blood glucose 4 times daily and as needed. Dx:E11.42 03/04/20 Inactive Accu-Chek Guide test strips RxNorm: Use 1 Test Strip QID And PRN-- also dispense Soft Touch Lancets (QID and PRN) to be use with new Accu Dolphin meter 03/04/20 Inactive ok to substitute with any covered alternative test strip nystatin 100,000 unit/gram topical powder RxNorm: 949325 Apply 1 Application Topical BID as needed abdominal/breast /groin folds 03/02/20 Active FreeStyle Chema 2 Sensor kit RxNorm: Use UD as directed 03/02/20 Active FreeStyle Chema 2 Sensor kit RxNorm: Use UD as directed 03/02/20 Inactive Pen Needle 30 gauge x 5/16 RxNorm: Pen(s) Use 1 needle as directed TID 03/02/2009 03/17/2 024 Inactive Accu-Chek Guide test strips RxNorm: [...] (Concentrated) Insulin 500 unit/mL subcutaneous soln RxNorm: 200715 Inject 100 Unit(s) Subcutaneous TID 02/17/20 24 024 Inactive Humulin R U-500 (Concentrated) Insulin 500 unit/mL subcutaneous soln RxNorm: 485695 Inject 100 Unit(s) Subcutaneous TID 02/10/20 24 024 Inactive Basaglar KwikPen U-100 Insulin 100 unit/mL (3 mL) subcutaneous RxNorm: 4211986 Inject 30 Unit(s) Subcutaneous BID 02/10/20 24 024 Inactive Please dispense one month supply. pregabalin 100 mg capsule RxNorm: 488596 Take 1 Capsule(s) Oral QAM every morning 02/07/20 24 024 Active isosorbide mononitrate ER 60 mg tablet,extended release 24 hr RxNorm: 651871 Take 1 Tablet(s) Oral QD 02/01/20 24 025 Active aripiprazole 15 mg tablet RxNorm: 646315 Take 1/2 Tablet(s) Oral QD 02/01/20 24 025 Active torsemide 20 mg tablet RxNorm: 657715 1 TAB ORALLY DAILY (DX: EDEMA) 01/27/20 No Stop Date Active potassium chloride ER 20 mEq tablet,extended release(part/cryst) RxNorm: 0647948 2 TABS (40MEQ) ORALLY TWICE DAILY (DX: HYPOKALEMIA) 01/27/20 No Stop Date Active cephalexin 500 mg capsule RxNorm: 200566 Take 1 Capsule(s) Oral QID 12/17/19 24 024 Inactive cephalexin 500 mg capsule RxNorm: 168603 Take 1 Capsule(s) Oral QID 12/17/19 24 Inactive acetaminophen 500 mg tablet RxNorm: 284311 (MAX APAP:4GM/24HR) Take 1 Tablet(s) Oral TID as needed for pain 12/10/19 24 Active torsemide 20 mg tablet RxNorm: 371940 Take 1 Tablet(s) Oral QD 10/26/19 24 024 Inactive potassium chloride ER 20 mEq tablet,extended release RxNorm: 19800522 Take 2 Tablet(s) Oral BID 10/26/19 24 Active torsemide 20 mg tablet RxNorm: 972255 Take 1 Tablet(s) Oral QD 10/26/19 24 Inactive potassium chloride ER 20 mEq tablet,extended release RxNorm: 19800522 Take 2 Tablet(s) Oral BID 10/26/19 24 Inactive Artificial Tears (PF) 0.1 %-0.3 % drops in a dropperette RxNorm: 943286 Apply 1-2 Drop(s) Both eyes BID as needed 09/28/19 24 025 Active erythromycin 5 mg/gram (0.5 %) eye ointment RxNorm: 762446 Apply 1 Application Both eyes QHS every night at bedtime Instill ~1 cm ribbon into affected eye 09/28/19 24 024 Inactive Artificial Tears (PF) 0.1 %-0.3 % drops in a dropperette RxNorm: 085218 Apply 1-2 Drop(s) Both eyes BID as needed 09/28/19 24 024 Inactive erythromycin 5 mg/gram (0.5 %) eye ointment RxNorm: 573459 Apply 1 Application Both eyes QHS every night at bedtime Instill ~1 cm ribbon into affected eye 09/28/19 24 024 Inactive acetaminophen 500 mg tablet RxNorm: 581598 (MAX APAP:4GM/24HR) Take 1 Tablet(s) Oral TID as needed for pain 09/24/19 24 024 Inactive carvedilol 25 mg tablet RxNorm: 378205 Take 1 Tablet(s) Oral QD 09/08/19 24 No Stop Date Active pregabalin 100 mg capsule RxNorm: 323222 Take 1 Capsule(s) Oral QAM every morning 09/07/19 24 024 Inactive rosuvastatin 40 mg tablet RxNorm: 453363 Take 1 Tablet(s) Oral QPM every evening 07/13/19 24 No Stop Date Active ezetimibe 10 mg tablet RxNorm: 261537 Take 1 Tablet(s) Oral QD 07/13/19 24 No Stop Date Active bisacodyl 10 mg rectal suppository RxNorm: 455875 Insert 1 Suppository Rectal QD as needed 07/13/19 24 No Stop Date Active polyethylene glycol 3350 17 gram/dose oral powder RxNorm: 705500 Take 17 Gram(s) Oral BID as needed mix in 4-8ox water 07/13/19 24 No Stop Date Active ketoconazole 2 % shampoo RxNorm: 871050 Apply 1 Application Topical UD as directed 07/13/19 24 No Stop Date Active Ozempic 1 mg/dose (4 mg/3 mL) subcutaneous pen injector RxNorm: 6914358 Inject 1 Milligram(s) Subcutaneous QW once a week 07/13/19 24 No Stop Date Active Guaifenesin AC 10 mg-100 mg/5 mL oral liquid RxNorm: 781787 Take 10 Milliliter(s) Oral Q4H every four hours as needed 07/13/19 24 No Stop Date Active ammonium lactate 12 % topical cream RxNorm: 301373 Apply 1 Application Topical BID 07/13/19 24 No Stop Date Active hydrocortisone 2.5 % topical cream RxNorm: 210795 Apply 1 Application Topical BID as needed 07/13/19 24 No Stop Date Active rosuvastatin 20 mg sprinkle capsule RxNorm: 8998420 Take 1 Capsule(s) Oral QD 07/13/19 24 No Stop Date Active Vascepa 1 gram capsule RxNorm: 0714474 Take 2 Capsule(s) Oral BID 07/13/19 24 No Stop Date Active venlafaxine ER 75 mg capsule,extended release 24 hr RxNorm: 499719 Take 3 Capsule(s) Oral QD 07/13/19 24 No Stop Date Active aripiprazole 15 mg tablet RxNorm: 893089 Take 1/2 Tablet(s) Oral QD 07/13/19 24 024 Inactive isosorbide mononitrate ER 60 mg tablet,extended release 24 hr RxNorm: 456373 Take 1 Tablet(s) Oral QD 07/13/19 24 024 Inactive Basaglar KwikPen U-100 Insulin 100 unit/mL (3 mL) subcutaneous RxNorm: 9527042 Inject 30U SubQ twice daily 07/07/19 24 024 Inactive Please dispense one month supply. Basaglar KwikPen U-100 Insulin 100 unit/mL (3 mL) subcutaneous RxNorm: 8263855 Inject 30U SubQ twice daily 07/07/19 24 024 Inactive Please dispense one month supply. pregabalin 150 mg capsule RxNorm: 570762 Take 1 Capsule(s) Oral QHS every night at bedtime 07/05/19 24 024 Inactive pregabalin 150 mg capsule RxNorm: 356429 Take 1 Capsule(s) Oral QHS every night at bedtime 07/05/19 24 024 Inactive polyethylene glycol 3350 17 gram/dose oral powder RxNorm: 945346 Take 1 Packet Oral QD as needed (1 packet = 17g) mix with 4-8oz of liquid 06/15/19 24 024 Inactive bisacodyl 10 mg rectal suppository RxNorm: 970692 Insert one suppository per rectum once daily as needed for constipation 06/15/19 24 024 Inactive bisacodyl 10 mg rectal suppository RxNorm: 682428 Insert one suppository per rectum once daily as needed for constipation 06/15/19 24 024 Inactive pregabalin 100 mg capsule RxNorm: 475234 Take 1 Capsule(s) Oral QAM every morning 04/27/20 024 Inactive Levemir FlexPen 100 unit/mL (3 mL) solution subcutaneous insulin pen RxNorm: 541063 Inject 30 Unit(s) Subcutaneous BID 04/27/20 23 024 Inactive rosuvastatin 40 mg tablet RxNorm: 634273 Take 1 Tablet(s) Oral QPM every evening 04/16/20 23 024 Inactive D/C rosuvastatin 20mg venlafaxine ER 75 mg capsule,extended release 24 hr RxNorm: 977104 Take 3 Capsule(s) Oral QD 04/14/20 23 023 Inactive pregabalin 100 mg capsule RxNorm: 275051 Take 1 Capsule(s) Oral QAM every morning [...] strip clotrimazole 1 % topical cream RxNorm: 448470 Take apply topically to abdominal folds twice daily for 14 days 03/12/20 024 Inactive Ozempic 1 mg/dose (4 mg/3 mL) subcutaneous pen injector RxNorm: 6764901 Inject 1 Milligram(s) Subcutaneous QW once a week 03/11/20 23 023 Inactive rosuvastatin 20 mg tablet RxNorm: 349399 Take 1 Tablet(s) Oral QD 02/26/20 23 023 Inactive d/c pravastatin 80mg Ozempic 1 mg/dose (4 mg/3 mL) subcutaneous pen injector RxNorm: 3429962 Inject 1 Milligram(s) Subcutaneous QW once a week 02/20/20 23 023 Inactive pregabalin 150 mg capsule RxNorm: 161390 Take 1 Capsule(s) Oral HS at bed time 02/19/20 23 023 Inactive pregabalin 100 mg capsule RxNorm: 230615 Take 1 Capsule(s) Oral QAM every morning 02/18/20 23 023 Inactive venlafaxine ER 75 mg capsule,extended release 24 hr RxNorm: 306853 Take 3 Capsule(s) Oral QD 02/04/20 23 023 Inactive FreeStyle Chmea 2 Sensor kit RxNorm: use as directed [...] 150 mg capsule,extended release 24 hr RxNorm: 232995 Take 1 Capsule(s) Oral QD 02/03/20 023 Inactive acetaminophen 500 mg tablet RxNorm: 122465 1 TABLET ORALLY 3 TIMES DAILY (MAX APAP:4GM/24HR) 12/15/19 23 023 Inactive clotrimazole 1 % topical cream RxNorm: 708898 apply 1g topically to top of feet and in between toes BID 12/09/19 23 023 Inactive potassium chloride ER 20 mEq tablet,extended release RxNorm: 033946 Take 1 Tablet(s) Oral BID 12/09/19 23 024 Inactive d/c 20mEq once daily (sent from hospital) nystatin 100,000 unit/gram topical powder RxNorm: 996499 APPLY TO AFFECTED AREAS TOPICALLY 2 TIMES DAILY 11/21/19 23 023 Inactive Nystop 100,000 unit/gram topical powder RxNorm: 721819 Apply to abd folds, under breasts and L side of groin Topical BID x 14 days, then BID PRN 11/20/19 23 023 Inactive dx: yeast dermatitis [place] Ultra Strength 4 %-30 %-10 % topical cream RxNorm: 560358 Apply 1 Gram(s) Topical QID PRN to feet and legs for neuropathic pain 11/11/19 23 024 Inactive clotrimazole 1 % topical cream RxNorm: 827536 Apply 1/2 Gram(s) Topical BID Apply to affected areas of groin, periarea, and abdominal topically 2 times daily 11/10/19 23 023 Inactive hydrocortisone 2.5 % topical cream RxNorm: 226376 Apply 1/2 Gram(s) Topical BID as needed 11/10/19 024 Inactive Levemir FlexPen 100 unit/mL (3 mL) solution subcutaneous insulin pen RxNorm: 216069 Inject 30 Unit(s) Subcutaneous BID 10/07/19 23 023 Inactive Humulin R U-500 (Concentrated) Insulin 500 unit/mL subcutaneous soln RxNorm: 835533 Inject 100 Unit(s) Subcutaneous TID 10/07/19 23 024 Inactive Ozempic 0.25 mg or 0.5 mg (2 mg/3 mL) subcutaneous pen injector RxNorm: 2830989 Inject 1/2 Milligram(s) Subcutaneous QW once a week 10/07/19 024 Inactive aripiprazole 15 mg tablet RxNorm: 629105 1/2 TAB (7.5MG) ORALLY DAILY (DX:MAJOR DEPRESSIVE DISORDER) 09/23/19 023 Inactive Accu-Chek Guide test strips RxNorm: Use 1 Test Strip QID 09/15/19 23 023 Inactive ok to substitute with any covered alternative test strip Lancets,Thin 28 gauge RxNorm: Use 1 as directed QID 09/15/19 23 023 Inactive torsemide 20 mg tablet RxNorm: 909716 Take 1 Tablet(s) Oral BID 09/09/19 024 Inactive d/c once daily dosing carvedilol 25 mg tablet RxNorm: 775062 Take 1 Tablet(s) Oral QD 08/25/19 23 024 Inactive pregabalin 150 mg capsule RxNorm: 657647 1 Capsule(s) Oral HS at bed time 08/18/19 023 Inactive pregabalin 100 mg capsule RxNorm: 541084 1 Capsule(s) Oral QAM every morning 08/18/19 023 Inactive carvedilol 25 mg tablet RxNorm: 607527 1 Tablet(s) Oral QD 07/28/19 23 023 Inactive lisinopril 20 mg tablet RxNorm: 405141 Give 1 Tablet(s) Oral QD 07/28/19 23 023 Inactive Lyrica 150 mg capsule RxNorm: 257630 Take 1 Capsule(s) Oral QHS every night at bedtime 07/19/19 23 023 Inactive d/c 100mg dose Diflucan 150 mg tablet RxNorm: 358252 Take 1 Tablet(s) Oral QD repeat on day 3 and 6 07/19/19 23 023 Inactive pregabalin 100 mg capsule RxNorm: 845250 Take 1 Capsule(s) Oral QAM every morning 07/19/19 23 023 Inactive gatifloxacin 0.5 % eye drops RxNorm: 881907 Instill 1 Drop(s) as directed TID Instill 1 drop in to affected eye(s) starting 1 day prior to surgery and continue until gone (do not exceed 4 weeks). 07/13/19 23 023 Inactive carvedilol 25 mg tablet RxNorm: 450863 2 Tablet(s) Oral BID 07/13/19 23 023 Inactive Humulin R Regular U-100 Insulin 100 unit/mL injection solution RxNorm: 420489 85 Unit(s) Injection TID 07/13/19 23 023 Inactive ketorolac 0.5 % eye drops RxNorm: 412187 Instill 1 Drop(s) as directed QID Instill 1 drop into affected eye(s) 4 times daily starting 1 day prior to surgery and continue until gone (do not exceed 4 weeks). 07/13/19 023 Inactive Diflucan 150 mg tablet RxNorm: 314179 Take 1 Tablet(s) Oral QD repeat on day 3 and 6 06/30/19 23 023 Inactive Accu-Chek Guide test strips RxNorm: Use 1 Test Strip QID Use 1 test strip to monitor blood glucose 4 times daily and as needed. Dx:E11.42. 06/23/19 23 023 Inactive ok to substitute with any covered alternative test strip dextromethorphan-gu aifenesin 10 mg-100 mg/5 mL oral liquid RxNorm: 646242 Take 10 Milliliter(s) Oral every 4 hours as needed for cough 06/19/19 23 023 Inactive dextromethorphan-gu aifenesin 10 mg-100 mg/5 mL oral liquid RxNorm: 254393 Take 10 Milliliter(s) Oral every 4 hours as needed for cough 06/19/19 023 Inactive Lyrica 150 mg capsule RxNorm: 179267 Take 1 Capsule(s) Oral QHS every night at bedtime 06/18/19 023 Inactive d/c 100mg dose aripiprazole 15 mg tablet RxNorm: 694362 /2 TAB (7.5MG) ORALLY DAILY (DX:MAJOR DEPRESSIVE DISORDER) 06/05/19 023 Inactive pregabalin 100 mg capsule RxNorm: 828256 1 Capsule(s) Oral QAM every morning 06/02/19 023 Inactive Banophen 50 mg capsule RxNorm: 0979938 Take 1 Capsule(s) Oral Q6H every 6 hours as needed 05/19/19 23 No Stop Date Active Novolog Flexpen U-100 Insulin aspart 100 unit/mL (3 mL) subcutaneous RxNorm: 8543071 Inject 10 Unit(s) Subcutaneous QHS every night at bedtime with nighttime snack 04/08/20 022 Inactive Novolog Flexpen U-100 Insulin aspart 100 unit/mL (3 mL) subcutaneous RxNorm: 8272498 Inject 42 Unit(s) Subcutaneous TID in addition to sliding scale 04/08/20 022 Inactive d/c 36u albuterol sulfate HFA 90 mcg/actuation aerosol inhaler RxNorm: 1255599 Take 2 Puff(s) Inhalation Q4H every four hours as needed as needed for SOB, cough, or wheezing 04/07/20 22 030 Active Banophen 50 mg capsule RxNorm: 3813345 Take 1 Capsule(s) Oral Q6H every 6 hours as needed 04/06/20 023 Inactive diphenhydramine 50 mg tablet RxNorm: 5635376 Take 1 Tablet(s) Oral Q6H every 6 hours as needed 04/06/20 22 022 Inactive diphenhydramine 50 mg tablet RxNorm: 2215034 1 Tablet(s) Oral Q6H every 6 hours as needed 04/06/20 22 022 Inactive Abilify 15 mg tablet RxNorm: 709695 1/2 Tablet(s) Oral QD 03/10/20 22 023 Inactive Shingrix (PF) 50 mcg/0.5 mL intramuscular suspension, kit RxNorm: 7782503 Administer 1/2 Milliliter(s) Intramuscular QD one time shingrix step 2 ( step 1 given 11/04/21) WITH needle - Nursing please administer upon arrival and once administered post a bridge message with date of administration, emergency preparedness manager, expiration date, and lot# so we can update [facility] 02/18/20 22 022 Inactive dispense with needle Shingrix (PF) 50 mcg/0.5 mL intramuscular suspension, kit RxNorm: 7247608 Administer 1/2 Milliliter(s) Intramuscular QD one time shingrix step 2 ( step 1 given 11/04/21) WITH needle - Nursing please administer upon arrival and once administered post a bridge message with date of administration, emergency preparedness manager, expiration date, and lot# so we can update [facility] 02/18/20 22 022 Inactive dispense with needle polyethylene glycol 3350 17 gram/dose oral powder RxNorm: 218160 Take 17=1 capful Gram(s) Oral QD mix with 4-8oz of liquid 01/08/20 22 023 Inactive take this in addition to BID prn order Lyrica 100 mg capsule RxNorm: 472544 Take 1 Capsule(s) Oral QAM every morning 01/08/20 22 022 Inactive d/c 50mg dose acetaminophen 500 mg tablet RxNorm: 434308 Take 1 Tablet(s) Oral TID 01/08/20 22 022 Inactive d/c PRN order Lyrica 150 mg capsule RxNorm: 873222 Take 1 Capsule(s) Oral QHS every night at bedtime 01/08/20 22 023 Inactive d/c 100mg dose Abilify 5 mg tablet RxNorm: 595692 Take 1 Tablet(s) Oral QD take 1 tab po QD #30 refill 5 dx: MDD 12/12/19 22 022 Inactive Abilify 5 mg tablet RxNorm: 720701 Take 1 Tablet(s) Oral QD take 1 tab po QD #30 refill 5 dx: MDD 12/12/19 22 022 Inactive Novolog Flexpen U-100 Insulin aspart 100 unit/mL (3 mL) subcutaneous RxNorm: 9191670 Inject 42 Unit(s) Subcutaneous TID in addition to sliding scale 12/10/19 22 022 Inactive d/c 36u chlorthalidone 25 mg tablet RxNorm: 428048 Take 1 Tablet(s) Oral QAM every morning 12/10/19 22 023 Inactive pregabalin 50 mg capsule RxNorm: 309867 Take 1 Capsule(s) Oral QAM every morning 11/12/19 22 022 Inactive tetanus-diphtheria toxoids-Td 2 Lf unit-2 Lf unit/0.5 mL IM suspension RxNorm: 139 Take 0.5 Miscellaneous Intramuscular 11/12/19 22 022 Inactive need tdap - nursing to administer upon arrival pregabalin 50 mg capsule RxNorm: 866419 Take 1 Capsule(s) Oral QAM every morning 10/16/19 22 022 Inactive pregabalin 50 mg capsule RxNorm: 018765 Take 1 Capsule(s) Oral QAM every morning 10/16/19 22 022 Inactive pregabalin 50 mg capsule RxNorm: 531722 1 Capsule(s) Oral QAM every morning 10/15/19 22 022 Inactive Shingrix (PF) 50 mcg/0.5 mL intramuscular suspension, kit RxNorm: 0363789 Administer 1/2 Milliliter(s) Intramuscular one time Nursing please administer upon arrival and once administered post a bridge message with date of administration, emergency preparedness manager, expiration date, and lot# so we can update [facility]. 10/09/19 22 022 Inactive shingrix step 1 Shingrix (PF) 50 mcg/0.5 mL intramuscular suspension, kit RxNorm: 2169783 Administer 1/2 Milliliter(s) Intramuscular one time Nursing please administer upon arrival and once administered post a bridge message with date of administration, emergency preparedness manager, expiration date, and lot# so we can update [facility]. 10/09/19 22 05/26/2 022 Inactive shingrix step 1 cholecalciferol (vitamin D3) 1,250 mcg (50,000 unit) capsule RxNorm: 178279 Take 1 Capsule(s) Oral QW once a [...] aspart 100 unit/mL (3 mL) subcutaneous RxNorm: 2500644 Inject 10 Unit(s) Subcutaneous QHS every night at bedtime with nighttime snack 10/08/19 22 Inactive Shingrix (PF) 50 mcg/0.5 mL intramuscular suspension, kit RxNorm: 4915836 ADMINISTER 2-DOSE SERIES PER CDC GUIDELINES 10/08/19 22 Active Shingrix (PF) 50 mcg/0.5 mL intramuscular suspension, kit RxNorm: 5958879 ADMINISTER 2-DOSE SERIES PER CDC GUIDELINES 10/08/19 22 Inactive Novolog Flexpen U-100 Insulin aspart 100 unit/mL (3 mL) subcutaneous RxNorm: 1819574 Inject 36 Unit(s) Subcutaneous TID in addition to sliding scale 10/08/19 22 Inactive Novofine Autocover 30 gauge x 1/3 needle RxNorm: Use 1 Miscellaneous UD as directed Use 1 needle as directed to administer insulin 5 times a day Dx:E11.42. 10/03/19 22 Inactive ok to substitute with any covered alternative pen needle benzoyl peroxide 10 % topical cleanser RxNorm: 625637 Apply 1 Application Topical QD apply to face, wash rinse and dry once daily (may change to QOD if drying) 08/19/19 22 Inactive (%covered by insurance) #60ml refill 11 dx: acne benzoyl peroxide 10 % topical cleanser RxNorm: 926297 Apply 1 Application Topical QD apply to face, wash rinse and dry once daily (may change to QOD if drying) 08/19/19 22 022 Inactive (%covered by insurance) #60ml refill 11 dx: acne benzoyl peroxide 10 % topical cleanser RxNorm: 277865 Apply 1 Application Topical QD apply to face, wash rinse and dry once daily (may change to QOD if drying) 08/19/19 22 022 Inactive (%covered by insurance) #60ml refill 11 dx: acne Lyrica 50 mg capsule RxNorm: 897084 Take 1 Capsule(s) Oral QAM every morning Take 1 capsule by mouth once daily 08/19/19 022 Inactive benzoyl peroxide 10 % topical cleanser RxNorm: 974323 Apply 1 Application Topical QD apply to face, wash rinse and dry once daily (may change to QOD if drying) 08/19/19 22 022 Inactive (%covered by insurance) #60ml refill 11 dx: acne Lyrica 100 mg capsule RxNorm: 443088 Take 1 Capsule(s) Oral QHS every night at bedtime Take 1 capsule by mouth once daily at bedtime 08/19/19 022 Inactive Lyrica 100 mg capsule RxNorm: 652193 Take 1 Capsule(s) Oral QHS every night at bedtime Take 1 capsule by mouth once daily at bedtime 08/16/19 022 Inactive Lyrica 50 mg capsule RxNorm: 313731 Take 1 Capsule(s) Oral QAM every morning Take 1 capsule by mouth once daily 08/16/19 22 Inactive Levemir FlexTouch U-100 Insulin 100 unit/mL (3 mL) subcutaneous pen RxNorm: 583681 Inject 86 Unit(s) Subcutaneous BID 08/05/19 22 022 Inactive d/c 83units BID Lyrica 100 mg capsule RxNorm: 673553 Take 1 Capsule(s) Oral QHS every night at bedtime Take 1 capsule by mouth once daily at bedtime 07/14/19 22 02/28/2 022 Inactive Lyrica 50 mg capsule RxNorm: 229219 Take 1 Capsule(s) Oral QAM every morning Take 1 capsule by mouth once daily 07/14/19 22 Inactive Levemir FlexTouch U-100 Insulin 100 unit/mL (3 mL) subcutaneous pen RxNorm: 517025 Inject 83 Unit(s) Subcutaneous BID 07/08/19 22 [...] test strip hydralazine 50 mg tablet RxNorm: 355860 Take 1 Tablet(s) Oral QID 05/05/20 21 12/14/2 022 Inactive venlafaxine ER 225 mg tablet,extended release 24 hr RxNorm: 142950 Take 1 Tablet(s) Oral QD 05/05/20 021 Inactive venlafaxine ER 225 mg tablet,extended release 24 hr RxNorm: 851162 Take 1 Tablet(s) Oral QD 05/05/20 022 Inactive isosorbide mononitrate ER 30 mg tablet,extended release 24 hr RxNorm: 756082 Take 1 Tablet(s) Oral QD 05/05/20 024 Inactive hydralazine 50 mg tablet RxNorm: 460143 Take 1 Tablet(s) Oral QID 05/05/20 Inactive aspirin 81 mg tablet,delayed release RxNorm: 540146 Take 1 Tablet(s) Oral QD 03/31/20 022 Inactive Vitamin D2 1,250 mcg (50,000 unit) capsule RxNorm: 5638526 Take 1 Capsule(s) Oral QW once a week x 12 weeks 03/31/20 022 Inactive Vitamin D2 1,250 mcg (50,000 unit) capsule RxNorm: 6183569 Take 1 Capsule(s) Oral QW once a week 03/31/20 021 Inactive Zetia 10 mg tablet RxNorm: 294221 Take 1 Tablet(s) Oral QD 03/31/20 024 Inactive Zetia 10 mg tablet RxNorm: 213302 Take 1 Tablet(s) Oral QD 03/31/20 021 Inactive hydralazine 25 mg tablet RxNorm: 639546 Take 1 Tablet(s) Oral QID 03/31/20 021 Inactive hydralazine 25 mg tablet RxNorm: 688547 Take 1 Tablet(s) Oral QID 03/31/20 021 Inactive hydralazine 10 mg tablet RxNorm: 406334 Take 1 Tablet(s) Oral QID 03/03/20 021 Inactive cephalexin 500 mg tablet RxNorm: 093621 Take 1 Tablet(s) Oral QID 02/27/20 021 Inactive cephalexin 500 mg tablet RxNorm: 625997 Take 1 Tablet(s) Oral QID 02/27/20 21 021 Inactive lisinopril 40 mg tablet RxNorm: 700396 Take 1 Tablet(s) Oral QD 02/11/20 21 023 Inactive Eliquis 5 mg tablet RxNorm: 8482011 Take 1 Tablet(s) Oral BID 01/05/20 21 022 Inactive Eliquis 5 mg tablet RxNorm: 7463400 Take 2 Tablet(s) Oral QD 01/01/20 21 021 Inactive Lyrica 50 mg capsule RxNorm: 647016 Take 1 Capsule(s) Oral QAM every morning 12/24/19 021 Inactive Lyrica 100 mg capsule RxNorm: 594620 Take 1 Capsule(s) Oral QHS every night at bedtime 12/24/19 021 Inactive clotrimazole 1 % topical cream RxNorm: 152810 Apply to right foot and toes Topical BID 12/04/19 21 023 Inactive metoprolol succinate ER 200 mg tablet,extended release 24 hr RxNorm: 107290 Take 1 Tablet(s) Oral QD 12/04/19 21 023 Inactive ciprofloxacin 500 mg tablet RxNorm: 515289 Take 1 Tablet(s) Oral QD 11/30/19 021 Inactive DX ofloxacin otic drops Accu-Chek Guide test strips RxNorm: USE 1 TO CHECK GLUCOSE 4 TIMES DAILY AND NEEDED 11/15/19 21 023 Inactive Blood Glucose Test strips RxNorm: Use 1 Test Strip QID at PRN 11/05/19 21 023 Inactive E11.42 lisinopril 30 mg tablet RxNorm: 887301 Take 1 Tablet(s) Oral QD 10/30/19 021 Inactive lisinopril 20 mg tablet RxNorm: 720203 Take 1 Tablet(s) Oral QD 10/23/19 21 021 Inactive lisinopril 20 mg tablet RxNorm: 264824 Take 1 Tablet(s) Oral QD 10/23/19 21 021 Inactive lisinopril 10 mg tablet RxNorm: 483986 Take 1 Tablet(s) Oral QD 10/02/19 21 021 Inactive icosapent ethyl 1 gram capsule RxNorm: 2997842 Take 2 Capsule(s) (2 gm) Oral BID with meals 09/12/19 024 Inactive Okay to dispense one 2gm tab if you have that available. icosapent ethyl 1 gram capsule RxNorm: 6439158 Take 2 Capsule(s) Oral BID 09/12/19 21 021 Inactive Okay to dispense one 2gm tab if you have that available. amlodipine 10 mg tablet RxNorm: 633252 Take 1 Tablet(s) Oral QD 09/04/19 022 Inactive aspirin 81 mg tablet,delayed release RxNorm: 422017 Take 1 Tablet(s) Oral QD 09/04/19 021 Inactive Levemir FlexTouch U-100 Insulin 100 unit/mL (3 mL) subcutaneous pen RxNorm: 351518 Inject 150 Unit(s) Subcutaneous BID 09/04/19 022 Inactive venlafaxine ER 150 mg tablet,extended release 24 hr RxNorm: 755160 Take 1 Tablet(s) Oral QD 09/04/19 021 Inactive clotrimazole-betame thasone 1 %-0.05 % topical cream RxNorm: 579802 Apply to rash on red area on left abdomen/chest Topical BID 08/10/19 Inactive amlodipine 5 mg tablet RxNorm: 962248 Take 1 Tablet(s) Oral QD 07/31/19 21 021 Inactive cephalexin 500 mg tablet RxNorm: 718462 Take 1 Tablet(s) Oral BID BID - Twice Daily 07/31/19 21 021 Inactive Start 08/01/20 pantoprazole 40 mg tablet,delayed release RxNorm: 394021 Take 1 Tablet(s) Oral QAM every morning 07/08/19 022 Inactive senna 8.6 mg tablet RxNorm: 103016 Take 1 Tablet(s) Oral QD 07/08/19 022 Inactive carbamazepine 200 mg tablet RxNorm: 341870 Take 1 Tablet(s) Oral BID 07/08/19 21 022 Inactive clopidogrel 75 mg tablet RxNorm: 846576 Take 1 Tablet(s) Oral QD 07/08/19 021 Inactive Blood Glucose Test strips RxNorm: Use 1 Test Strip QID at PRN 07/08/19 21 Inactive E11.42 Novolog Flexpen U-100 Insulin aspart 100 unit/mL (3 mL) subcutaneous RxNorm: 2716798 Administer per sliding scale Milliliter(s) Subcutaneous TID 151-200: 10 u; 201-250: 20 u; 251-300: 30 u; 301-350: 40 u; 351-400: 50 u. 07/08/19 022 Inactive lisinopril 5 mg tablet RxNorm: 267291 Take 1 Tablet(s) Oral QD 07/08/19 021 Inactive Novolog Flexpen U-100 Insulin aspart 100 unit/mL (3 mL) subcutaneous RxNorm: 8586672 Inject 85 Unit(s) Subcutaneous TID 07/08/19 022 Inactive pravastatin 80 mg tablet RxNorm: 872370 Take 1 Tablet(s) Oral QHS every night at bedtime 07/08/19 023 Inactive clotrimazole 1 % topical cream RxNorm: 232528 Apply to bilateral groin areas Topical BID 07/08/19 21 022 Inactive metoprolol succinate ER 200 mg tablet,extended release 24 hr RxNorm: 878750 Take 1 Tablet(s) Oral QD 07/08/19 021 Inactive Vitamin D3 25 mcg (1,000 unit) tablet RxNorm: 321739 Take 1 Tablet(s) Oral QD 07/08/19 021 Inactive isosorbide dinitrate 30 mg tablet RxNorm: 555997 Take 1 Tablet(s) Oral QD 07/08/19 21 021 Inactive Levemir FlexTouch U-100 Insulin 100 unit/mL (3 mL) subcutaneous pen RxNorm: 301421 Inject 140 Unit(s) Subcutaneous BID 07/08/19 21 021 Inactive torsemide 20 mg tablet RxNorm: 517964 Take 1 Tablet(s) Oral QD 07/08/19 21 023 Inactive venlafaxine 75 mg tablet RxNorm: 680747 Take 1 Tablet(s) Oral QD 07/08/19 21 021 Inactive acetaminophen 500 mg tablet RxNorm: 744047 Take 1 Tablet(s) Oral TID as needed for headache 06/18/19 21 021 Inactive acetaminophen 500 mg tablet RxNorm: 089606 Take 1 Tablet(s) Oral TID as needed for headache 06/18/19 21 021 Inactive Lyrica 100 mg capsule RxNorm: 416426 Take 1 Capsule(s) Oral QHS every night at bedtime 06/11/19 21 021 Inactive Lyrica 50 mg capsule RxNorm: 901791 Take 1 Capsule(s) Oral QAM every morning 06/10/19 21 021 Inactive hydrocortisone 2.5 % topical cream RxNorm: 945916 Apply to bilateral groin creases Topical BID 05/15/20 20 021 Inactive clotrimazole 1 % topical cream RxNorm: 294282 Apply to bilateral groin areas Topical BID 05/15/20 20 021 Inactive Lyrica 50 mg capsule RxNorm: 983256 Take 1 Capsule(s) Oral QAM every morning 05/14/20 20 020 Inactive Lyrica 100 mg capsule RxNorm: 951098 Take 1 Capsule(s) Oral QHS every night [...] Inactive Nystop 100,000 unit/gram topical powder RxNorm: 080096 Apply to abd folds, under breasts and L side of groin Topical BID x 14 days, then BID PRN 04/08/20 20 Inactive dx: yeast dermatitis Lyrica 100 mg capsule RxNorm: 280030 Take 1 Capsule(s) Oral QHS every night at bedtime 03/13/20 20 Inactive Lyrica 50 mg capsule RxNorm: 278623 Take 1 Capsule(s) Oral QAM every morning 03/13/20 20 Inactive ketoconazole 2 % shampoo RxNorm: 907745 Apply Topical two times a week with showers 03/11/20 20 Inactive cholecalciferol (vitamin D3) 50 mcg (2,000 unit) tablet RxNorm: 647853 Take 1 Tablet(s) Oral QD 03/11/20 20 021 Inactive Zetia 10 mg tablet RxNorm: 427630 Take 1 Tablet(s) Oral QD 03/07/20 20 021 Inactive Zetia 10 mg tablet RxNorm: 289876 Take 1 Tablet(s) Oral QD 03/07/20 20 Inactive Lyrica 50 mg capsule RxNorm: 779412 Take 1 Capsule(s) Oral QAM every morning 02/15/20 20 Inactive Lyrica 100 mg capsule RxNorm: 654528 Take 1 Capsule(s) Oral QHS every night at bedtime 02/15/20 20 Inactive Lyrica 100 mg capsule RxNorm: 163943 Take 1 Capsule(s) Oral QHS every night at bedtime 02/15/20 20 Inactive Lyrica 50 mg capsule RxNorm: 896918 Take 1 Capsule(s) Oral QAM every morning 02/15/20 20 Inactive metoprolol succinate ER 200 mg tablet,extended release 24 hr RxNorm: 171513 Take 1 Tablet(s) Oral QD 08/11 Activeloperamide 2 mg capsuleRxNorm: 112056Hbzp 1 Capsule(s) Oral QID as needed 06/12/2021ctivehydralazine 50 mg tabletRxNorm: 825756Eawb 1 Tablet(s) Oral QID 08/11/2022ctiveSoft Touch LancetsRxNorm:vpvhtdrmewpeh81/19/2024ctive venlafaxine ER 75 mg capsule,extended release 24 hrRxNorm: 853037Iobm 3 Capsule(s) Oral QD/Inactivepolyethylene glycol 3350 17 gram/dose oral powderRxNorm: 405415Kkgv 17=1 capful Gram(s) Oral BID as needed mix with 4-8oz of /Inactiveicosapent ethyl 1 gram capsuleRxNorm: 0914583Eczh 2 Capsule(s) (2 gm) Oral BID with meals10/06/2022 10/05/2022InactiveOkay to dispense one 2gm tab if you have that available. Levemir FlexTouch U-100 Insulin 100 unit/mL (3 mL) subcutaneous penRxNorm: 418216Psmndn 80 Unit(s) Subcutaneous BID/InactiveNovolog Flexpen U-100 Insulin aspart 100 unit/mL (3 mL) subcutaneousRxNorm: 8463295 Insert 30 Unit(s) Subcutaneous TID with meals/Inactive [...] [facility] WPtel: [address], [address] [id number] USReferralRecords Flujbqno67/08/2023Referral: [facility] WPtel: [address] [id number]/12/2022Referral: General CardiologyReferralCompleted 1Referral: General PsychologistReferralClosedReferral: General PsychiatristReferralPatient/Family [...] a hospitalization 05/2021 he moved [facility] the [facility] to have closer nursing attention. Sister Jyotsna involved in his care cell# [phone] Guardian: Don (tapan met in person 09/01/21), [...] note from 11.08.2023 at [facility] (follow up 6 months)Colon & Rectal Surgery visit scheduled for 03/08/24 with Matilde Pérez PA-C. 02/08/2024
--- OUTSIDE RECORDS SUMMARY | 2024-03-09 00:43 | XMS_ITS | CCD ---
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, [facility] U navailable Summary Purpose DataExchange Insurance Providers Payer name Policy type / Coverage type Covered constitution party ID Effective Begin Date Effective End Date [place] Part B [id number] Unknown Unknown Medicaid [place] Medicare Part B [id number] Unknown Unknown Family history Sister Brittany Suggs Diagnosis Age At Onset No Family Disease Entered N/A Runs in the family Diagnosis Age At Onset No Known Diseases N/A Sister Blanka Mcduffie Diagnosis Age At Onset No Family Disease Entered N/A Social History Social History Element Codes Description Effec tive Dates Tobacco history SNOMED CT: 928708267 Never smoker 01/16 Sexually Active? Unknown No [...] 10/07/2021 Living arrangements Unknown Detention 09/03/[address]: 290849385 No Alcohol Consum ption 09/02/2020 Allergies, Adverse Reactions, Alerts Substance Reaction Codes Entered Date Inactivated Date Status * NO KNOWN FOOD ALLERGIES Ozmkiuu1107/13/2023No Inactive DateActiveLISINOPRILRxNorm: 0380157No Inactive DateActiveMetformin QWrRqjohdy00/28/2020No Inactive DateActive* NO KNOWN ENVIRONMENTAL [id number]/27/2024No Inactive DateActive Problems Condition Codes Effective Dates [...] planning - to document end of life [id number] care planningICD-10: Z71.89 ICD-9: V65.4909/ctiveAmputated toe of [...] E55.9 ICD-9: 268.909/ctiveCallus of heelICD-10: L84 ICD-9: 49584/esolvedGout due to renal impairmentICD-10: M10.30 ICD-9: 274.1005esolvedHyperhidrosis of palmsICD-10: L74.512 ICD-9: 705.21010/12/2023esolvedHyperlipidemia, unspecifiedICD-10: E78.5 ICD-9: 272.405/4ResolvedOther prison (current) drug therapyICD-10: Z79.899 ICD-9: V58.6905esolvedPain of [...] tagICD-10: L91.8 ICD-9: 701.904esolvedCoronary artery disease involving [place] coronary artery of [place] heart, angina presence unspecifiedICD-10: I25.10 ICD-9: 414.0102/ctiveInappropriate sexual behaviorICD-10: Z72.89 ICD-9: 312.8910/ctivePre-op evaluationICD-10: Z01.818 ICD-9: V72.8403/ctiveSecondary hypertensionICD-10: I15.9 ICD-9: 405.9903/ctiveDepressionICD-10: F32.9 ICD-9: 25644/esolvedDVT (deep venous thrombosis)ICD-10: I82.409 ICD-9: 453.4009/2ResolvedEncounter for [...] to other viral communicable diseasesICD-10: Z20.828 ICD-9: V01.79024763KxadxzwmUqoinzplDyktfjb21/28/2020ActiveDiabetes mellitus Type 4Jatrlxd67/28/2020ActiveAnemia in chronic kidney diseaseICD-10: D63.1 02/12/2020ResolvedHyperlipidemia, unspecifiedICD-10: [...] Insulin 100 unit/mL (3 mL) subcutaneous RxNorm: 0117212 Inject 40 Unit(s) Subcutaneous BID 03/07/20 Active Please dispense one month supply. Humulin R U-500 (Concentrated) Insulin 500 unit/mL subcutaneous soln RxNorm: 635901 Inject 100 Unit(s) Subcutaneous AC before meals [...] PRN) to be use with new Accu [place] meter 03/04/20 Inactive ok to substitute with any covered alternative test strip nystatin 100,000 unit/gram topical powder RxNorm: 328577 Apply 1 Application Topical BID as needed [...] (Concentrated) Insulin 500 unit/mL subcutaneous soln RxNorm: 575895 Inject 100 Unit(s) Subcutaneous TID 02/17/20 24 024 Inactive Humulin R U-500 (Concentrated) Insulin 500 unit/mL subcutaneous soln RxNorm: 433700 Inject 100 Unit(s) Subcutaneous TID 02/10/20 24 024 Inactive Basaglar KwikPen U-100 Insulin 100 unit/mL (3 mL) subcutaneous RxNorm: 9718975 Inject 30 Unit(s) Subcutaneous BID 02/10/20 24 024 Inactive Please dispense one month supply. pregabalin 100 mg capsule RxNorm: 938315 Take 1 Capsule(s) Oral QAM every morning 02/07/20 24 024 Active isosorbide mononitrate ER 60 mg tablet,extended release 24 hr RxNorm: 366517 Take 1 Tablet(s) Oral QD 02/01/20 24 025 Active aripiprazole 15 mg tablet RxNorm: 180663 Take 1/2 Tablet(s) Oral QD 02/01/20 24 025 Active torsemide 20 mg tablet RxNorm: 749837 1 TAB ORALLY DAILY (DX: EDEMA) 01/27/20 No Stop Date Active potassium chloride ER 20 mEq tablet,extended release(part/cryst) RxNorm: 1899747 2 TABS (40MEQ) ORALLY TWICE DAILY (DX: HYPOKALEMIA) 01/27/20 No Stop Date Active cephalexin 500 mg capsule RxNorm: 579512 Take 1 Capsule(s) Oral QID 12/17/19 24 024 Inactive cephalexin 500 mg capsule RxNorm: 997945 Take 1 Capsule(s) Oral QID 12/17/19 24 Inactive acetaminophen 500 mg tablet RxNorm: 442610 (MAX APAP:4GM/24HR) Take 1 Tablet(s) Oral TID as needed for pain 12/10/19 24 Active torsemide 20 mg tablet RxNorm: 489660 Take 1 Tablet(s) Oral QD 10/26/19 24 024 Inactive potassium chloride ER 20 mEq tablet,extended release RxNorm: 19800522 Take 2 Tablet(s) Oral BID 10/26/19 24 Active torsemide 20 mg tablet RxNorm: 292318 Take 1 Tablet(s) Oral QD 10/26/19 24 Inactive potassium chloride ER 20 mEq tablet,extended release RxNorm: 19800522 Take 2 Tablet(s) Oral BID 10/26/19 24 Inactive Artificial Tears (PF) 0.1 %-0.3 % drops in a dropperette RxNorm: 490204 Apply 1-2 Drop(s) Both eyes BID as needed 09/28/19 24 025 Active erythromycin 5 mg/gram (0.5 %) eye ointment RxNorm: 425858 Apply 1 Application Both eyes QHS every night at bedtime Instill ~1 cm ribbon into affected eye 09/28/19 24 024 Inactive Artificial Tears (PF) 0.1 %-0.3 % drops in a dropperette RxNorm: 139553 Apply 1-2 Drop(s) Both eyes BID as needed 09/28/19 24 024 Inactive erythromycin 5 mg/gram (0.5 %) eye ointment RxNorm: 543795 Apply 1 Application Both eyes QHS every night at bedtime Instill ~1 cm ribbon into affected eye 09/28/19 24 024 Inactive acetaminophen 500 mg tablet RxNorm: 125918 (MAX APAP:4GM/24HR) Take 1 Tablet(s) Oral TID as needed for pain 09/24/19 24 024 Inactive carvedilol 25 mg tablet RxNorm: 918704 Take 1 Tablet(s) Oral QD 09/08/19 24 No Stop Date Active pregabalin 100 mg capsule RxNorm: 972834 Take 1 Capsule(s) Oral QAM every morning 09/07/19 24 024 Inactive rosuvastatin 40 mg tablet RxNorm: 351083 Take 1 Tablet(s) Oral QPM every evening 07/13/19 24 No Stop Date Active ezetimibe 10 mg tablet RxNorm: 349640 Take 1 Tablet(s) Oral QD 07/13/19 24 No Stop Date Active bisacodyl 10 mg rectal suppository RxNorm: 082651 Insert 1 Suppository Rectal QD as needed 07/13/19 24 No Stop Date Active polyethylene glycol 3350 17 gram/dose oral powder RxNorm: 553502 Take 17 Gram(s) Oral BID as needed mix in 4-8ox water 07/13/19 24 No Stop Date Active ketoconazole 2 % shampoo RxNorm: 027167 Apply 1 Application Topical UD as directed 07/13/19 24 No Stop Date Active Ozempic 1 mg/dose (4 mg/3 mL) subcutaneous pen injector RxNorm: 9482347 Inject 1 Milligram(s) Subcutaneous QW once a week 07/13/19 24 No Stop Date Active Guaifenesin AC 10 mg-100 mg/5 mL oral liquid RxNorm: 157004 Take 10 Milliliter(s) Oral Q4H every four hours as needed 07/13/19 24 No Stop Date Active ammonium lactate 12 % topical cream RxNorm: 025013 Apply 1 Application Topical BID 07/13/19 24 No Stop Date Active hydrocortisone 2.5 % topical cream RxNorm: 470847 Apply 1 Application Topical BID as needed 07/13/19 24 No Stop Date Active rosuvastatin 20 mg sprinkle capsule RxNorm: 3257719 Take 1 Capsule(s) Oral QD 07/13/19 24 No Stop Date Active Vascepa 1 gram capsule RxNorm: 1829747 Take 2 Capsule(s) Oral BID 07/13/19 24 No Stop Date Active venlafaxine ER 75 mg capsule,extended release 24 hr RxNorm: 547298 Take 3 Capsule(s) Oral QD 07/13/19 24 No Stop Date Active aripiprazole 15 mg tablet RxNorm: 765867 Take 1/2 Tablet(s) Oral QD 07/13/19 24 024 Inactive isosorbide mononitrate ER 60 mg tablet,extended release 24 hr RxNorm: 275578 Take 1 Tablet(s) Oral QD 07/13/19 24 024 Inactive Basaglar KwikPen U-100 Insulin 100 unit/mL (3 mL) subcutaneous RxNorm: 5224994 Inject 30U SubQ twice daily 07/07/19 24 024 Inactive Please dispense one month supply. Basaglar KwikPen U-100 Insulin 100 unit/mL (3 mL) subcutaneous RxNorm: 6604320 Inject 30U SubQ twice daily 07/07/19 24 024 Inactive Please dispense one month supply. pregabalin 150 mg capsule RxNorm: 903896 Take 1 Capsule(s) Oral QHS every night at bedtime 07/05/19 24 024 Inactive pregabalin 150 mg capsule RxNorm: 865269 Take 1 Capsule(s) Oral QHS every night at bedtime 07/05/19 24 024 Inactive polyethylene glycol 3350 17 gram/dose oral powder RxNorm: 683561 Take 1 Packet Oral QD as needed (1 packet = 17g) mix with 4-8oz of liquid 06/15/19 24 024 Inactive bisacodyl 10 mg rectal suppository RxNorm: 141097 Insert one suppository per rectum once daily as needed for constipation 06/15/19 24 024 Inactive bisacodyl 10 mg rectal suppository RxNorm: 375316 Insert one suppository per rectum once daily as needed for constipation 06/15/19 24 024 Inactive pregabalin 100 mg capsule RxNorm: 949012 Take 1 Capsule(s) Oral QAM every morning 04/27/20 024 Inactive Levemir FlexPen 100 unit/mL (3 mL) solution subcutaneous insulin pen RxNorm: 434715 Inject 30 Unit(s) Subcutaneous BID 04/27/20 23 024 Inactive rosuvastatin 40 mg tablet RxNorm: 377982 Take 1 Tablet(s) Oral QPM every evening 04/16/20 23 024 Inactive D/C rosuvastatin 20mg venlafaxine ER 75 mg capsule,extended release 24 hr RxNorm: 940467 Take 3 Capsule(s) Oral QD 04/14/20 23 023 Inactive pregabalin 100 mg capsule RxNorm: 458410 Take 1 Capsule(s) Oral QAM every morning [...] strip clotrimazole 1 % topical cream RxNorm: 264422 Take apply topically to abdominal folds twice daily for 14 days 03/12/20 024 Inactive Ozempic 1 mg/dose (4 mg/3 mL) subcutaneous pen injector RxNorm: 6371993 Inject 1 Milligram(s) Subcutaneous QW once a week 03/11/20 23 023 Inactive rosuvastatin 20 mg tablet RxNorm: 623240 Take 1 Tablet(s) Oral QD 02/26/20 23 023 Inactive d/c pravastatin 80mg Ozempic 1 mg/dose (4 mg/3 mL) subcutaneous pen injector RxNorm: 8016698 Inject 1 Milligram(s) Subcutaneous QW once a week 02/20/20 23 023 Inactive pregabalin 150 mg capsule RxNorm: 595525 Take 1 Capsule(s) Oral HS at bed time 02/19/20 23 023 Inactive pregabalin 100 mg capsule RxNorm: 465507 Take 1 Capsule(s) Oral QAM every morning 02/18/20 23 023 Inactive venlafaxine ER 75 mg capsule,extended release 24 hr RxNorm: 731077 Take 3 Capsule(s) Oral QD 02/04/20 23 [...] 150 mg capsule,extended release 24 hr RxNorm: 203464 Take 1 Capsule(s) Oral QD 02/03/20 023 Inactive acetaminophen 500 mg tablet RxNorm: 668070 1 TABLET ORALLY 3 TIMES DAILY (MAX APAP:4GM/24HR) 12/15/19 23 023 Inactive clotrimazole 1 % topical cream RxNorm: 664766 apply 1g topically to top of feet and in between toes BID 12/09/19 23 023 Inactive potassium chloride ER 20 mEq tablet,extended release RxNorm: 798771 Take 1 Tablet(s) Oral BID 12/09/19 23 024 Inactive d/c 20mEq once daily (sent from hospital) nystatin 100,000 unit/gram topical powder RxNorm: 292864 APPLY TO AFFECTED AREAS TOPICALLY 2 TIMES DAILY 11/21/19 23 023 Inactive Nystop 100,000 unit/gram topical powder RxNorm: 851918 Apply to abd folds, under breasts and L side of groin Topical BID x 14 days, then BID PRN 11/20/19 23 023 Inactive dx: yeast dermatitis [place] Ultra Strength 4 %-30 %-10 % topical cream RxNorm: 185934 Apply 1 Gram(s) Topical QID PRN to feet and legs for neuropathic pain 11/11/19 23 024 Inactive clotrimazole 1 % topical cream RxNorm: 535188 Apply 1/2 Gram(s) Topical BID Apply to affected areas of groin, periarea, and abdominal topically 2 times daily 11/10/19 23 023 Inactive hydrocortisone 2.5 % topical cream RxNorm: 133816 Apply 1/2 Gram(s) Topical BID as needed 11/10/19 024 Inactive Levemir FlexPen 100 unit/mL (3 mL) solution subcutaneous insulin pen RxNorm: 659640 Inject 30 Unit(s) Subcutaneous BID 10/07/19 23 023 Inactive Humulin R U-500 (Concentrated) Insulin 500 unit/mL subcutaneous soln RxNorm: 859380 Inject 100 Unit(s) Subcutaneous TID 10/07/19 23 024 Inactive Ozempic 0.25 mg or 0.5 mg (2 mg/3 mL) subcutaneous pen injector RxNorm: 2736072 Inject 1/2 Milligram(s) Subcutaneous QW once a week 10/07/19 024 Inactive aripiprazole 15 mg tablet RxNorm: 023118 1/2 TAB (7.5MG) ORALLY DAILY (DX:MAJOR DEPRESSIVE DISORDER) 09/23/19 023 Inactive Accu-Chek Guide test strips RxNorm: Use 1 Test Strip QID 09/15/19 23 023 Inactive ok to substitute with any covered alternative test strip Lancets,Thin 28 gauge RxNorm: Use 1 as directed QID 09/15/19 23 023 Inactive torsemide 20 mg tablet RxNorm: 510148 Take 1 Tablet(s) Oral BID 09/09/19 024 Inactive d/c once daily dosing carvedilol 25 mg tablet RxNorm: 567075 Take 1 Tablet(s) Oral QD 08/25/19 23 024 Inactive pregabalin 150 mg capsule RxNorm: 512250 1 Capsule(s) Oral HS at bed time 08/18/19 023 Inactive pregabalin 100 mg capsule RxNorm: 391452 1 Capsule(s) Oral QAM every morning 08/18/19 023 Inactive carvedilol 25 mg tablet RxNorm: 378977 1 Tablet(s) Oral QD 07/28/19 23 023 Inactive lisinopril 20 mg tablet RxNorm: 630456 Give 1 Tablet(s) Oral QD 07/28/19 23 023 Inactive Lyrica 150 mg capsule RxNorm: 102992 Take 1 Capsule(s) Oral QHS every night at bedtime 07/19/19 23 023 Inactive d/c 100mg dose Diflucan 150 mg tablet RxNorm: 951608 Take 1 Tablet(s) Oral QD repeat on day 3 and 6 07/19/19 23 023 Inactive pregabalin 100 mg capsule RxNorm: 131563 Take 1 Capsule(s) Oral QAM every morning 07/19/19 23 023 Inactive gatifloxacin 0.5 % eye drops RxNorm: 181707 Instill 1 Drop(s) as directed TID Instill 1 drop in to affected eye(s) starting 1 day prior to surgery and continue until gone (do not exceed 4 weeks). 07/13/19 23 023 Inactive carvedilol 25 mg tablet RxNorm: 255625 2 Tablet(s) Oral BID 07/13/19 23 023 Inactive Humulin R Regular U-100 Insulin 100 unit/mL injection solution RxNorm: 931434 85 Unit(s) Injection TID 07/13/19 23 023 Inactive ketorolac 0.5 % eye drops RxNorm: 315544 Instill 1 Drop(s) as directed QID Instill 1 drop into affected eye(s) 4 times daily starting 1 day prior to surgery and continue until gone (do not exceed 4 weeks). 07/13/19 023 Inactive Diflucan 150 mg tablet RxNorm: 679501 Take 1 Tablet(s) Oral QD repeat on day 3 and 6 06/30/19 23 023 Inactive Accu-Chek Guide test strips RxNorm: Use 1 Test Strip QID Use 1 test strip to monitor blood glucose 4 times daily and as needed. Dx:E11.42. 06/23/19 23 023 Inactive ok to substitute with any covered alternative test strip dextromethorphan-gu aifenesin 10 mg-100 mg/5 mL oral liquid RxNorm: 071297 Take 10 Milliliter(s) Oral every 4 hours as needed for cough 06/19/19 23 023 Inactive dextromethorphan-gu aifenesin 10 mg-100 mg/5 mL oral liquid RxNorm: 699014 Take 10 Milliliter(s) Oral every 4 hours as needed for cough 06/19/19 023 Inactive Lyrica 150 mg capsule RxNorm: 037435 Take 1 Capsule(s) Oral QHS every night at bedtime 06/18/19 023 Inactive d/c 100mg dose aripiprazole 15 mg tablet RxNorm: 679937 /2 TAB (7.5MG) ORALLY DAILY (DX:MAJOR DEPRESSIVE DISORDER) 06/05/19 023 Inactive pregabalin 100 mg capsule RxNorm: 935803 1 Capsule(s) Oral QAM every morning 06/02/19 023 Inactive Banophen 50 mg capsule RxNorm: 8493172 Take 1 Capsule(s) Oral Q6H every 6 hours as needed 05/19/19 23 No Stop Date Active Novolog Flexpen U-100 Insulin aspart 100 unit/mL (3 mL) subcutaneous RxNorm: 4476735 Inject 10 Unit(s) Subcutaneous QHS every night at bedtime with nighttime snack 04/08/20 022 Inactive Novolog Flexpen U-100 Insulin aspart 100 unit/mL (3 mL) subcutaneous RxNorm: 9822806 Inject 42 Unit(s) Subcutaneous TID in addition to sliding scale 04/08/20 022 Inactive d/c 36u albuterol sulfate HFA 90 mcg/actuation aerosol inhaler RxNorm: 8364192 Take 2 Puff(s) Inhalation Q4H every four hours as needed as needed for SOB, cough, or wheezing 04/07/20 22 030 Active Banophen 50 mg capsule RxNorm: 4984660 Take 1 Capsule(s) Oral Q6H every 6 hours as needed 04/06/20 023 Inactive diphenhydramine 50 mg tablet RxNorm: 4044144 Take 1 Tablet(s) Oral Q6H every 6 hours as needed 04/06/20 22 022 Inactive diphenhydramine 50 mg tablet RxNorm: 7900113 1 Tablet(s) Oral Q6H every 6 hours as needed 04/06/20 22 022 Inactive Abilify 15 mg tablet RxNorm: 527039 1/2 Tablet(s) Oral QD 03/10/20 22 023 Inactive Shingrix (PF) 50 mcg/0.5 mL intramuscular suspension, kit RxNorm: 7376910 Administer 1/2 Milliliter(s) Intramuscular QD one time shingrix step 2 ( step 1 given 11/04/21) WITH needle - Nursing please administer upon arrival and once administered post a bridge message with 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 of 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, 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, expiration date, and lot# so we can update [facility] 02/18/20 22 022 Inactive dispense with needle Shingrix (PF) 50 mcg/0.5 mL intramuscular suspension, kit RxNorm: 5631352 Administer 1/2 Milliliter(s) Intramuscular QD one time shingrix step 2 ( step 1 given 11/04/21) WITH needle - Nursing please administer upon arrival and once administered post a bridge message with 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 of 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, 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, expiration date, and lot# so we can update [facility] 02/18/20 22 022 Inactive dispense with needle polyethylene glycol 3350 17 gram/dose oral powder RxNorm: 911445 Take 17=1 capful Gram(s) Oral QD mix with 4-8oz of liquid 01/08/20 22 023 Inactive take this in addition to BID prn order Lyrica 100 mg capsule RxNorm: 896507 Take 1 Capsule(s) Oral QAM every morning 01/08/20 22 022 Inactive d/c 50mg dose acetaminophen 500 mg tablet RxNorm: 503202 Take 1 Tablet(s) Oral TID 01/08/20 22 022 Inactive d/c PRN order Lyrica 150 mg capsule RxNorm: 440593 Take 1 Capsule(s) Oral QHS every night at bedtime 01/08/20 22 023 Inactive d/c 100mg dose Abilify 5 mg tablet RxNorm: 127945 Take 1 Tablet(s) Oral QD take 1 tab po QD #30 refill 5 dx: MDD 12/12/19 22 022 Inactive Abilify 5 mg tablet RxNorm: 092968 Take 1 Tablet(s) Oral QD take 1 tab po QD #30 refill 5 dx: MDD 12/12/19 22 022 Inactive Novolog Flexpen U-100 Insulin aspart 100 unit/mL (3 mL) subcutaneous RxNorm: 0327633 Inject 42 Unit(s) Subcutaneous TID in addition to sliding scale 12/10/19 22 022 Inactive d/c 36u chlorthalidone 25 mg tablet RxNorm: 440213 Take 1 Tablet(s) Oral QAM every morning 12/10/19 22 023 Inactive pregabalin 50 mg capsule RxNorm: 927218 Take 1 Capsule(s) Oral QAM every morning 11/12/19 22 022 Inactive tetanus-diphtheria toxoids-Td 2 Lf unit-2 Lf unit/0.5 mL IM suspension RxNorm: 139 Take 0.5 Miscellaneous Intramuscular 11/12/19 22 022 Inactive need tdap - nursing to administer upon arrival pregabalin 50 mg capsule RxNorm: 012949 Take 1 Capsule(s) Oral QAM every morning 10/16/19 22 022 Inactive pregabalin 50 mg capsule RxNorm: 298602 Take 1 Capsule(s) Oral QAM every morning 10/16/19 22 022 Inactive pregabalin 50 mg capsule RxNorm: 207504 1 Capsule(s) Oral QAM every morning 10/15/19 22 022 Inactive Shingrix (PF) 50 mcg/0.5 mL intramuscular suspension, kit RxNorm: 7261083 Administer 1/2 Milliliter(s) Intramuscular one time Nursing please administer upon arrival and once administered post a bridge message with date of administration, 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 10/09/19 22 05/26/2 022 Inactive shingrix step 1 cholecalciferol (vitamin D3) 1,250 mcg (50,000 unit) capsule RxNorm: 927776 Take 1 Capsule(s) Oral QW once a [...] aspart 100 unit/mL (3 mL) subcutaneous RxNorm: 6304219 Inject 10 Unit(s) Subcutaneous QHS every night at bedtime with nighttime snack 10/08/19 22 Inactive Shingrix (PF) 50 mcg/0.5 mL intramuscular suspension, kit RxNorm: 6602793 ADMINISTER 2-DOSE SERIES PER CDC GUIDELINES 10/08/19 22 Active Shingrix (PF) 50 mcg/0.5 mL intramuscular suspension, kit RxNorm: 9568243 ADMINISTER 2-DOSE SERIES PER CDC GUIDELINES 10/08/19 22 Inactive Novolog Flexpen U-100 Insulin aspart 100 unit/mL (3 mL) subcutaneous RxNorm: 8569952 Inject 36 Unit(s) Subcutaneous TID in addition to sliding scale 10/08/19 22 Inactive Novofine Autocover 30 gauge x 1/3 needle RxNorm: Use 1 Miscellaneous UD as directed Use 1 needle as directed to administer insulin 5 times a day Dx:E11.42. 10/03/19 22 Inactive ok to substitute with any covered alternative pen needle benzoyl peroxide 10 % topical cleanser RxNorm: 504443 Apply 1 Application Topical QD apply to face, wash rinse and dry once daily (may change to QOD if drying) 08/19/19 22 Inactive (%covered by insurance) #60ml refill 11 dx: acne benzoyl peroxide 10 % topical cleanser RxNorm: 368781 Apply 1 Application Topical QD apply to face, wash rinse and dry once daily (may change to QOD if drying) 08/19/19 22 022 Inactive (%covered by insurance) #60ml refill 11 dx: acne benzoyl peroxide 10 % topical cleanser RxNorm: 060371 Apply 1 Application Topical QD apply to face, wash rinse and dry once daily (may change to QOD if drying) 08/19/19 22 022 Inactive (%covered by insurance) #60ml refill 11 dx: acne Lyrica 50 mg capsule RxNorm: 671982 Take 1 Capsule(s) Oral QAM every morning Take 1 capsule by mouth once daily 08/19/19 022 Inactive benzoyl peroxide 10 % topical cleanser RxNorm: 117559 Apply 1 Application Topical QD apply to face, wash rinse and dry once daily (may change to QOD if drying) 08/19/19 22 022 Inactive (%covered by insurance) #60ml refill 11 dx: acne Lyrica 100 mg capsule RxNorm: 524128 Take 1 Capsule(s) Oral QHS every night at bedtime Take 1 capsule by mouth once daily at bedtime 08/19/19 022 Inactive Lyrica 100 mg capsule RxNorm: 819898 Take 1 Capsule(s) Oral QHS every night at bedtime Take 1 capsule by mouth once daily at bedtime 08/16/19 022 Inactive Lyrica 50 mg capsule RxNorm: 810076 Take 1 Capsule(s) Oral QAM every morning Take 1 capsule by mouth once daily 08/16/19 22 Inactive Levemir FlexTouch U-100 Insulin 100 unit/mL (3 mL) subcutaneous pen RxNorm: 246152 Inject 86 Unit(s) Subcutaneous BID 08/05/19 22 022 Inactive d/c 83units BID Lyrica 100 mg capsule RxNorm: 692374 Take 1 Capsule(s) Oral QHS every night at bedtime Take 1 capsule by mouth once daily at bedtime 07/14/19 22 02/28/2 022 Inactive Lyrica 50 mg capsule RxNorm: 899048 Take 1 Capsule(s) Oral QAM every morning Take 1 capsule by mouth once daily 07/14/19 22 Inactive Levemir FlexTouch U-100 Insulin 100 unit/mL (3 mL) subcutaneous pen RxNorm: 187815 Inject 83 Unit(s) Subcutaneous BID 07/08/19 22 [...] test strip hydralazine 50 mg tablet RxNorm: 490448 Take 1 Tablet(s) Oral QID 05/05/20 21 12/14/2 022 Inactive venlafaxine ER 225 mg tablet,extended release 24 hr RxNorm: 986365 Take 1 Tablet(s) Oral QD 05/05/20 021 Inactive venlafaxine ER 225 mg tablet,extended release 24 hr RxNorm: 775791 Take 1 Tablet(s) Oral QD 05/05/20 022 Inactive isosorbide mononitrate ER 30 mg tablet,extended release 24 hr RxNorm: 704427 Take 1 Tablet(s) Oral QD 05/05/20 024 Inactive hydralazine 50 mg tablet RxNorm: 463585 Take 1 Tablet(s) Oral QID 05/05/20 Inactive aspirin 81 mg tablet,delayed release RxNorm: 021447 Take 1 Tablet(s) Oral QD 03/31/20 022 Inactive Vitamin D2 1,250 mcg (50,000 unit) capsule RxNorm: 2506853 Take 1 Capsule(s) Oral QW once a week x 12 weeks 03/31/20 022 Inactive Vitamin D2 1,250 mcg (50,000 unit) capsule RxNorm: 7311838 Take 1 Capsule(s) Oral QW once a week 03/31/20 021 Inactive Zetia 10 mg tablet RxNorm: 106990 Take 1 Tablet(s) Oral QD 03/31/20 024 Inactive Zetia 10 mg tablet RxNorm: 940445 Take 1 Tablet(s) Oral QD 03/31/20 021 Inactive hydralazine 25 mg tablet RxNorm: 001473 Take 1 Tablet(s) Oral QID 03/31/20 021 Inactive hydralazine 25 mg tablet RxNorm: 390334 Take 1 Tablet(s) Oral QID 03/31/20 021 Inactive hydralazine 10 mg tablet RxNorm: 757287 Take 1 Tablet(s) Oral QID 03/03/20 021 Inactive cephalexin 500 mg tablet RxNorm: 349290 Take 1 Tablet(s) Oral QID 02/27/20 021 Inactive cephalexin 500 mg tablet RxNorm: 429219 Take 1 Tablet(s) Oral QID 02/27/20 21 021 Inactive lisinopril 40 mg tablet RxNorm: 774248 Take 1 Tablet(s) Oral QD 02/11/20 21 023 Inactive Eliquis 5 mg tablet RxNorm: 9517817 Take 1 Tablet(s) Oral BID 01/05/20 21 022 Inactive Eliquis 5 mg tablet RxNorm: 7751082 Take 2 Tablet(s) Oral QD 01/01/20 21 021 Inactive Lyrica 50 mg capsule RxNorm: 302460 Take 1 Capsule(s) Oral QAM every morning 12/24/19 021 Inactive Lyrica 100 mg capsule RxNorm: 680375 Take 1 Capsule(s) Oral QHS every night at bedtime 12/24/19 021 Inactive clotrimazole 1 % topical cream RxNorm: 375836 Apply to right foot and toes Topical BID 12/04/19 21 023 Inactive metoprolol succinate ER 200 mg tablet,extended release 24 hr RxNorm: 610457 Take 1 Tablet(s) Oral QD 12/04/19 21 023 Inactive ciprofloxacin 500 mg tablet RxNorm: 259824 Take 1 Tablet(s) Oral QD 11/30/19 021 Inactive DX ofloxacin otic drops Accu-Chek Guide test strips RxNorm: USE 1 TO CHECK GLUCOSE 4 TIMES DAILY AND NEEDED 11/15/19 21 023 Inactive Blood Glucose Test strips RxNorm: Use 1 Test Strip QID at PRN 11/05/19 21 023 Inactive E11.42 lisinopril 30 mg tablet RxNorm: 877253 Take 1 Tablet(s) Oral QD 10/30/19 021 Inactive lisinopril 20 mg tablet RxNorm: 593609 Take 1 Tablet(s) Oral QD 10/23/19 21 021 Inactive lisinopril 20 mg tablet RxNorm: 453947 Take 1 Tablet(s) Oral QD 10/23/19 21 021 Inactive lisinopril 10 mg tablet RxNorm: 127488 Take 1 Tablet(s) Oral QD 10/02/19 21 021 Inactive icosapent ethyl 1 gram capsule RxNorm: 8032367 Take 2 Capsule(s) (2 gm) Oral BID with meals 09/12/19 024 Inactive Okay to dispense one 2gm tab if you have that available. icosapent ethyl 1 gram capsule RxNorm: 9377939 Take 2 Capsule(s) Oral BID 09/12/19 21 021 Inactive Okay to dispense one 2gm tab if you have that available. amlodipine 10 mg tablet RxNorm: 612621 Take 1 Tablet(s) Oral QD 09/04/19 022 Inactive aspirin 81 mg tablet,delayed release RxNorm: 408526 Take 1 Tablet(s) Oral QD 09/04/19 021 Inactive Levemir FlexTouch U-100 Insulin 100 unit/mL (3 mL) subcutaneous pen RxNorm: 778850 Inject 150 Unit(s) Subcutaneous BID 09/04/19 022 Inactive venlafaxine ER 150 mg tablet,extended release 24 hr RxNorm: 153686 Take 1 Tablet(s) Oral QD 09/04/19 021 Inactive clotrimazole-betame thasone 1 %-0.05 % topical cream RxNorm: 435701 Apply to rash on red area on left abdomen/chest Topical BID 08/10/19 Inactive amlodipine 5 mg tablet RxNorm: 060074 Take 1 Tablet(s) Oral QD 07/31/19 21 021 Inactive cephalexin 500 mg tablet RxNorm: 673602 Take 1 Tablet(s) Oral BID BID - Twice Daily 07/31/19 21 021 Inactive Start 08/01/20 pantoprazole 40 mg tablet,delayed release RxNorm: 237763 Take 1 Tablet(s) Oral QAM every morning 07/08/19 022 Inactive senna 8.6 mg tablet RxNorm: 420750 Take 1 Tablet(s) Oral QD 07/08/19 022 Inactive carbamazepine 200 mg tablet RxNorm: 101105 Take 1 Tablet(s) Oral BID 07/08/19 21 022 Inactive clopidogrel 75 mg tablet RxNorm: 120841 Take 1 Tablet(s) Oral QD 07/08/19 021 Inactive Blood Glucose Test strips RxNorm: Use 1 Test Strip QID at PRN 07/08/19 21 Inactive E11.42 Novolog Flexpen U-100 Insulin aspart 100 unit/mL (3 mL) subcutaneous RxNorm: 4025872 Administer per sliding scale Milliliter(s) Subcutaneous TID 151-200: 10 u; 201-250: 20 u; 251-300: 30 u; 301-350: 40 u; 351-400: 50 u. 07/08/19 022 Inactive lisinopril 5 mg tablet RxNorm: 506738 Take 1 Tablet(s) Oral QD 07/08/19 021 Inactive Novolog Flexpen U-100 Insulin aspart 100 unit/mL (3 mL) subcutaneous RxNorm: 1291556 Inject 85 Unit(s) Subcutaneous TID 07/08/19 022 Inactive pravastatin 80 mg tablet RxNorm: 198237 Take 1 Tablet(s) Oral QHS every night at bedtime 07/08/19 023 Inactive clotrimazole 1 % topical cream RxNorm: 995572 Apply to bilateral groin areas Topical BID 07/08/19 21 022 Inactive metoprolol succinate ER 200 mg tablet,extended release 24 hr RxNorm: 377730 Take 1 Tablet(s) Oral QD 07/08/19 021 Inactive Vitamin D3 25 mcg (1,000 unit) tablet RxNorm: 025360 Take 1 Tablet(s) Oral QD 07/08/19 021 Inactive isosorbide dinitrate 30 mg tablet RxNorm: 699371 Take 1 Tablet(s) Oral QD 07/08/19 21 021 Inactive Levemir FlexTouch U-100 Insulin 100 unit/mL (3 mL) subcutaneous pen RxNorm: 035744 Inject 140 Unit(s) Subcutaneous BID 07/08/19 21 021 Inactive torsemide 20 mg tablet RxNorm: 485130 Take 1 Tablet(s) Oral QD 07/08/19 21 023 Inactive venlafaxine 75 mg tablet RxNorm: 001208 Take 1 Tablet(s) Oral QD 07/08/19 21 021 Inactive acetaminophen 500 mg tablet RxNorm: 839054 Take 1 Tablet(s) Oral TID as needed for headache 06/18/19 21 021 Inactive acetaminophen 500 mg tablet RxNorm: 994434 Take 1 Tablet(s) Oral TID as needed for headache 06/18/19 21 021 Inactive Lyrica 100 mg capsule RxNorm: 275598 Take 1 Capsule(s) Oral QHS every night at bedtime 06/11/19 21 021 Inactive Lyrica 50 mg capsule RxNorm: 875464 Take 1 Capsule(s) Oral QAM every morning 06/10/19 21 021 Inactive hydrocortisone 2.5 % topical cream RxNorm: 752537 Apply to bilateral groin creases Topical BID 05/15/20 20 021 Inactive clotrimazole 1 % topical cream RxNorm: 530718 Apply to bilateral groin areas Topical BID 05/15/20 20 021 Inactive Lyrica 50 mg capsule RxNorm: 938935 Take 1 Capsule(s) Oral QAM every morning 05/14/20 20 020 Inactive Lyrica 100 mg capsule RxNorm: 737682 Take 1 Capsule(s) Oral QHS every night [...] Inactive Nystop 100,000 unit/gram topical powder RxNorm: 229349 Apply to abd folds, under breasts and L side of groin Topical BID x 14 days, then BID PRN 04/08/20 20 Inactive dx: yeast dermatitis Lyrica 100 mg capsule RxNorm: 220458 Take 1 Capsule(s) Oral QHS every night at bedtime 03/13/20 20 Inactive Lyrica 50 mg capsule RxNorm: 146527 Take 1 Capsule(s) Oral QAM every morning 03/13/20 20 Inactive ketoconazole 2 % shampoo RxNorm: 711894 Apply Topical two times a week with showers 03/11/20 20 Inactive cholecalciferol (vitamin D3) 50 mcg (2,000 unit) tablet RxNorm: 219472 Take 1 Tablet(s) Oral QD 03/11/20 20 021 Inactive Zetia 10 mg tablet RxNorm: 207337 Take 1 Tablet(s) Oral QD 03/07/20 20 021 Inactive Zetia 10 mg tablet RxNorm: 200923 Take 1 Tablet(s) Oral QD 03/07/20 20 Inactive Lyrica 50 mg capsule RxNorm: 374039 Take 1 Capsule(s) Oral QAM every morning 02/15/20 20 Inactive Lyrica 100 mg capsule RxNorm: 028852 Take 1 Capsule(s) Oral QHS every night at bedtime 02/15/20 20 Inactive Lyrica 100 mg capsule RxNorm: 145568 Take 1 Capsule(s) Oral QHS every night at bedtime 02/15/20 20 Inactive Lyrica 50 mg capsule RxNorm: 857415 Take 1 Capsule(s) Oral QAM every morning 02/15/20 20 Inactive metoprolol succinate ER 200 mg tablet,extended release 24 hr RxNorm: 574534 Take 1 Tablet(s) Oral QD 08/11 Activeloperamide 2 mg capsuleRxNorm: 105269Kjyf 1 Capsule(s) Oral QID as needed 06/12/2021ctivehydralazine 50 mg tabletRxNorm: 179763Ttws 1 Tablet(s) Oral QID 08/11/2022ctiveSoft Touch LancetsRxNorm:elnqayigctwtk80/19/2024ctive venlafaxine ER 75 mg capsule,extended release 24 hrRxNorm: 369135Dqls 3 Capsule(s) Oral QD/Inactivepolyethylene glycol 3350 17 gram/dose oral powderRxNorm: 940429Rdmp 17=1 capful Gram(s) Oral BID as needed mix with 4-8oz of dszuii52/Inactiveicosapent ethyl 1 gram capsuleRxNorm: 7229824Vbjo 2 Capsule(s) (2 gm) Oral BID with meals10/06/2022 10/05/2022InactiveOkay to dispense one 2gm tab if you have that available. Levemir FlexTouch U-100 Insulin 100 unit/mL (3 mL) subcutaneous penRxNorm: 511266Hrluns 80 Unit(s) Subcutaneous BID/InactiveNovolog Flexpen U-100 Insulin aspart 100 unit/mL (3 mL) subcutaneousRxNorm: 8262064 Insert 30 Unit(s) Subcutaneous TID with meals/Inactive [...] [facility] WPtel: [address], [address] [id number] USReferralRecords Aiksgelq93/08/2023Referral: [facility] WPtel: [address] [id number]/12/2022Referral: General CardiologyReferralCompleted 1Referral: General PsychologistReferralClosedReferral: General PsychiatristReferralPatient/Family Scheduling AppointmentReferral: General Physical MedicineReferralFacility Scheduling Appointment Instructions Comment Date Leonid is a Male being seen living at [facility]. Initial [facility] visit 01/2020. PMHx including DMII, CAD w/ 5 stents, Depression, Seizure Disorder and CKD stage 3. He moved into [facility] in 12/2019 but after a [facility]. Sister Jyotsna involved in his care cell# [phone] Guardian: Don (tapan met in person 09/01/21), [...] note from 11.08.2023 at [facility] (follow up 6 months)Colon & Rectal Surgery visit scheduled for 03/08/24 with Matilde Pérez PA-C. 02/08/2024
--- OUTSIDE RECORDS SUMMARY | 2024-03-17 23:55 | XMS_ITS | CCD ---
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 Fruit Rancher Name Role Phone Arpit MCKINLEY-CHarrison Primary Care Provider Leona vailable Mccurtain PHYSICAL TRAINER-C, [facility] U navailable Summary Purpose DataExchange Insurance Providers Payer name Policy type / Coverage type Covered green party ID Effective Begin Date Effective End Date [place] Medicare Part B [id number] Unknown Unknown Medicaid [place] Medicare Part B [id number] Unknown Unknown Family history Sister Brittany Suggs Diagnosis Age At Onset No Family Disease Entered N/A Runs in the family Diagnosis Age At Onset No Known Diseases N/A Sister Blanka Mcduffie Diagnosis Age At Onset No Family Disease Entered N/A Social History Social History Element Codes Description Effec tive Dates Tobacco history SNOMED CT: 721665971 Never smoker 01/16 Sexually Active? Unknown No [...] 10/07/2021 Living arrangements Unknown Half-Way 09/03/[address]: 971468077 No Alcohol Consum ption 09/02/2020 Allergies, Adverse Reactions, Alerts Substance Reaction Codes Entered Date Inactivated Date Status * NO KNOWN FOOD ALLERGIES Qyzcadm3507/13/2023No Inactive DateActiveLISINOPRILRxNorm: 1320398No Inactive DateActiveMetformin UKbHocpbya26/28/2020No Inactive DateActive* NO KNOWN ENVIRONMENTAL CXOXXTKSPFnmxgha08/27/2024No Inactive DateActive Problems Condition Codes Effective Dates [...] planning - to document end of life uvyewnkdzjzWxzjdtm32ctiveAdvance care planningICD-10: Z71.89 ICD-9: V65.4909/ctiveAmputated toe of [...] E55.9 ICD-9: 268.909/ctiveCallus of heelICD-10: L84 ICD-9: 24979/esolvedGout due to renal impairmentICD-10: M10.30 ICD-9: 274.1005esolvedHyperhidrosis of palmsICD-10: L74.512 ICD-9: 705.21010/12/2023esolvedHyperlipidemia, unspecifiedICD-10: E78.5 ICD-9: 272.405/4ResolvedOther alf (current) drug therapyICD-10: Z79.899 ICD-9: V58.6905esolvedPain of [...] tagICD-10: L91.8 ICD-9: 701.904esolvedCoronary artery disease involving [place] coronary artery of [place] heart, angina presence unspecifiedICD-10: I25.10 ICD-9: 414.0102/ctiveInappropriate sexual behaviorICD-10: Z72.89 ICD-9: 312.8910/ctivePre-op evaluationICD-10: Z01.818 ICD-9: V72.8403/ctiveSecondary hypertensionICD-10: I15.9 ICD-9: 405.9903/ctiveDepressionICD-10: F32.9 ICD-9: 71019/esolvedDVT (deep venous thrombosis)ICD-10: I82.409 ICD-9: 453.4009/2ResolvedEncounter for [...] to other viral communicable diseasesICD-10: Z20.828 ICD-9: V01.79023524BjlcsbusPtwzwoylZvbkmzr22/28/2020ActiveDiabetes mellitus Type 9Yhqemro38/28/2020ActiveAnemia in chronic kidney diseaseICD-10: D63.1 02/12/2020ResolvedHyperlipidemia, unspecifiedICD-10: E78.509Resolved Medications Medication Codes Instructions Start Date Stop Date Status Fill Instructions cholecalciferol (vitamin D3) 1,250 mcg (50,000 unit) capsule RxNorm: 969377 Take 1 Capsule(s) Oral QW once a week 03/15/20 025 Active Lancets,Thin 28 gauge RxNorm: Use 1 as directed TID lancet 03/08/20 025 Active Pen Needle 30 gauge x 5/16 RxNorm: Pen(s) Use 1 needle as directed TID 03/08/20 Active Accu-Chek Guide test strips RxNorm: Use 1 Test Strip TID to test Blood glucose 03/08/20 Active ok to substitute with any covered alternative test strip Lancets,Thin 28 gauge RxNorm: Use 1 as directed TID lancet 03/08/20 Inactive Accu-Chek Guide Glucose Meter RxNorm: Use 1 Miscellaneous UD as directed Use glucose meter to monitor blood glucose 3 times daily. Dx:E11.42 03/08/20 Inactive Accu-Chek Guide test strips RxNorm: Use 1 Test Strip TID to test BS 03/08/20 Inactive ok to substitute with any covered alternative test strip Basaglar KwikPen U-100 Insulin 100 unit/mL (3 mL) subcutaneous RxNorm: 1365124 Inject 40 Unit(s) Subcutaneous BID 03/07/20 025 Active Please dispense one month supply. Humulin R U-500 (Concentrated) Insulin 500 unit/mL subcutaneous soln RxNorm: 489785 Inject 100 Unit(s) Subcutaneous AC before meals [...] PRN) to be use with new Accu [address] meter 03/04/20 024 Inactive ok to substitute with any covered alternative test strip nystatin 100,000 unit/gram topical powder RxNorm: 869663 Apply 1 Application Topical BID as needed [...] (Concentrated) Insulin 500 unit/mL subcutaneous soln RxNorm: 791960 Inject 100 Unit(s) Subcutaneous TID 02/17/20 24 024 Inactive Humulin R U-500 (Concentrated) Insulin 500 unit/mL subcutaneous soln RxNorm: 617485 Inject 100 Unit(s) Subcutaneous TID 02/10/20 24 024 Inactive Basaglar KwikPen U-100 Insulin 100 unit/mL (3 mL) subcutaneous RxNorm: 7381338 Inject 30 Unit(s) Subcutaneous BID 02/10/20 24 024 Inactive Please dispense one month supply. pregabalin 100 mg capsule RxNorm: 456612 Take 1 Capsule(s) Oral QAM every morning 02/07/20 24 024 Active isosorbide mononitrate ER 60 mg tablet,extended release 24 hr RxNorm: 492794 Take 1 Tablet(s) Oral QD 02/01/20 24 025 Active aripiprazole 15 mg tablet RxNorm: 616603 Take 1/2 Tablet(s) Oral QD 02/01/20 24 025 Active torsemide 20 mg tablet RxNorm: 417409 1 TAB ORALLY DAILY (DX: EDEMA) 01/27/20 24 No Stop Date Active potassium chloride ER 20 mEq tablet,extended release(part/cryst) RxNorm: 5384743 2 TABS (40MEQ) ORALLY TWICE DAILY (DX: HYPOKALEMIA) 01/27/20 No Stop Date Active cephalexin 500 mg capsule RxNorm: 135711 Take 1 Capsule(s) Oral QID 12/17/19 24 Inactive cephalexin 500 mg capsule RxNorm: 341824 Take 1 Capsule(s) Oral QID 12/17/19 24 Inactive acetaminophen 500 mg tablet RxNorm: 379364 (MAX APAP:4GM/24HR) Take 1 Tablet(s) Oral TID as needed for pain 12/10/19 24 Active torsemide 20 mg tablet RxNorm: 611334 Take 1 Tablet(s) Oral QD 10/26/19 24 024 Inactive potassium chloride ER 20 mEq tablet,extended release RxNorm: 19800522 Take 2 Tablet(s) Oral BID 10/26/19 24 Active torsemide 20 mg tablet RxNorm: 403344 Take 1 Tablet(s) Oral QD 10/26/19 24 024 Inactive potassium chloride ER 20 mEq tablet,extended release RxNorm: 285069 Take 2 Tablet(s) Oral BID 10/26/19 24 Inactive Artificial Tears (PF) 0.1 %-0.3 % drops in a dropperette RxNorm: 217559 Apply 1-2 Drop(s) Both eyes BID as needed 09/28/19 24 025 Active erythromycin 5 mg/gram (0.5 %) eye ointment RxNorm: 323208 Apply 1 Application Both eyes QHS every night at bedtime Instill ~1 cm ribbon into affected eye 09/28/19 24 024 Inactive Artificial Tears (PF) 0.1 %-0.3 % drops in a dropperette RxNorm: 397695 Apply 1-2 Drop(s) Both eyes BID as needed 09/28/19 24 024 Inactive erythromycin 5 mg/gram (0.5 %) eye ointment RxNorm: 166076 Apply 1 Application Both eyes QHS every night at bedtime Instill ~1 cm ribbon into affected eye 09/28/19 24 Inactive acetaminophen 500 mg tablet RxNorm: 625254 (MAX APAP:4GM/24HR) Take 1 Tablet(s) Oral TID as needed for pain 09/24/19 24 024 Inactive carvedilol 25 mg tablet RxNorm: 889487 Take 1 Tablet(s) Oral QD 09/08/19 24 No Stop Date Active pregabalin 100 mg capsule RxNorm: 125882 Take 1 Capsule(s) Oral QAM every morning 09/07/19 24 024 Inactive rosuvastatin 40 mg tablet RxNorm: 187430 Take 1 Tablet(s) Oral QPM every evening 07/13/19 24 No Stop Date Active ezetimibe 10 mg tablet RxNorm: 786109 Take 1 Tablet(s) Oral QD 07/13/19 24 No Stop Date Active bisacodyl 10 mg rectal suppository RxNorm: 534259 Insert 1 Suppository Rectal QD as needed 07/13/19 24 No Stop Date Active polyethylene glycol 3350 17 gram/dose oral powder RxNorm: 869224 Take 17 Gram(s) Oral BID as needed mix in 4-8ox water 07/13/19 24 No Stop Date Active ketoconazole 2 % shampoo RxNorm: 915441 Apply 1 Application Topical UD as directed 07/13/19 24 No Stop Date Active Ozempic 1 mg/dose (4 mg/3 mL) subcutaneous pen injector RxNorm: 2836815 Inject 1 Milligram(s) Subcutaneous QW once a week 07/13/19 24 No Stop Date Active Guaifenesin AC 10 mg-100 mg/5 mL oral liquid RxNorm: 075476 Take 10 Milliliter(s) Oral Q4H every four hours as needed 07/13/19 24 No Stop Date Active ammonium lactate 12 % topical cream RxNorm: 874585 Apply 1 Application Topical BID 07/13/19 24 No Stop Date Active hydrocortisone 2.5 % topical cream RxNorm: 834330 Apply 1 Application Topical BID as needed 07/13/19 24 No Stop Date Active rosuvastatin 20 mg sprinkle capsule RxNorm: 6281810 Take 1 Capsule(s) Oral QD 07/13/19 24 No Stop Date Active Vascepa 1 gram capsule RxNorm: 4371617 Take 2 Capsule(s) Oral BID 07/13/19 24 No Stop Date Active venlafaxine ER 75 mg capsule,extended release 24 hr RxNorm: 704340 Take 3 Capsule(s) Oral QD 07/13/19 24 No Stop Date Active aripiprazole 15 mg tablet RxNorm: 032927 Take 1/2 Tablet(s) Oral QD 07/13/19 24 024 Inactive isosorbide mononitrate ER 60 mg tablet,extended release 24 hr RxNorm: 930823 Take 1 Tablet(s) Oral QD 07/13/19 24 024 Inactive Basaglar KwikPen U-100 Insulin 100 unit/mL (3 mL) subcutaneous RxNorm: 4319468 Inject 30U SubQ twice daily 07/07/19 24 024 Inactive Please dispense one month supply. Basaglar KwikPen U-100 Insulin 100 unit/mL (3 mL) subcutaneous RxNorm: 4595532 Inject 30U SubQ twice daily 07/07/19 24 024 Inactive Please dispense one month supply. pregabalin 150 mg capsule RxNorm: 894795 Take 1 Capsule(s) Oral QHS every night at bedtime 07/05/19 24 024 Inactive pregabalin 150 mg capsule RxNorm: 738989 Take 1 Capsule(s) Oral QHS every night at bedtime 07/05/19 24 024 Inactive polyethylene glycol 3350 17 gram/dose oral powder RxNorm: 556405 Take 1 Packet Oral QD as needed (1 packet = 17g) mix with 4-8oz of liquid 06/15/19 24 024 Inactive bisacodyl 10 mg rectal suppository RxNorm: 018476 Insert one suppository per rectum once daily as needed for constipation 06/15/19 24 024 Inactive bisacodyl 10 mg rectal suppository RxNorm: 813653 Insert one suppository per rectum once daily as needed for constipation 06/15/19 24 024 Inactive pregabalin 100 mg capsule RxNorm: 707647 Take 1 Capsule(s) Oral QAM every morning 04/27/20 23 024 Inactive Levemir FlexPen 100 unit/mL (3 mL) solution subcutaneous insulin pen RxNorm: 780965 Inject 30 Unit(s) Subcutaneous BID 04/27/20 024 Inactive rosuvastatin 40 mg tablet RxNorm: 871068 Take 1 Tablet(s) Oral QPM every evening 04/16/20 024 Inactive D/C rosuvastatin 20mg venlafaxine ER 75 mg capsule,extended release 24 hr RxNorm: 551386 Take 3 Capsule(s) Oral QD 04/14/20 023 Inactive pregabalin 100 mg capsule RxNorm: 528785 Take 1 Capsule(s) Oral QAM every morning [...] strip clotrimazole 1 % topical cream RxNorm: 913320 Take apply topically to abdominal folds twice daily for 14 days 03/12/20 024 Inactive Ozempic 1 mg/dose (4 mg/3 mL) subcutaneous pen injector RxNorm: 0164128 Inject 1 Milligram(s) Subcutaneous QW once a week 03/11/20 023 Inactive rosuvastatin 20 mg tablet RxNorm: 858148 Take 1 Tablet(s) Oral QD 02/26/20 023 Inactive d/c pravastatin 80mg Ozempic 1 mg/dose (4 mg/3 mL) subcutaneous pen injector RxNorm: 1487974 Inject 1 Milligram(s) Subcutaneous QW once a week 02/20/20 23 023 Inactive pregabalin 150 mg capsule RxNorm: 978793 Take 1 Capsule(s) Oral HS at bed time 02/19/20 23 023 Inactive pregabalin 100 mg capsule RxNorm: 176639 Take 1 Capsule(s) Oral QAM every morning 02/18/20 23 023 Inactive venlafaxine ER 75 mg capsule,extended release 24 hr RxNorm: 816244 Take 3 Capsule(s) Oral QD 02/04/20 23 023 Inactive FreeStyle Chema 2 Sensor kit RxNorm: use as directed 02/04/20 23 023 Inactive FreeStyle Chema 2 Sensor kit RxNorm: use as directed 02/04/20 23 024 Inactive fluconazole 150 mg tablet RxNorm: 504848 Take 1 Tablet(s) Oral on day 3 and on day 6 02/03/20 024 Inactive chlorthalidone 25 mg tablet RxNorm: 279822 Take 1 Tablet(s) Oral QAM every morning 02/03/20 No Stop Date Active venlafaxine ER 150 mg capsule,extended release 24 hr RxNorm: 697002 Take 1 Capsule(s) Oral QD 02/03/20 23 023 Inactive acetaminophen 500 mg tablet RxNorm: 285882 1 TABLET ORALLY 3 TIMES DAILY (MAX APAP:4GM/24HR) 12/15/19 23 023 Inactive clotrimazole 1 % topical cream RxNorm: 183901 apply 1g topically to top of feet and in between toes BID 12/09/19 23 023 Inactive potassium chloride ER 20 mEq tablet,extended release RxNorm: 107085 Take 1 Tablet(s) Oral BID 12/09/19 23 024 Inactive d/c 20mEq once daily (sent from hospital) nystatin 100,000 unit/gram topical powder RxNorm: 267655 APPLY TO AFFECTED AREAS TOPICALLY 2 TIMES DAILY 11/21/19 23 023 Inactive Nystop 100,000 unit/gram topical powder RxNorm: 614134 Apply to abd folds, under breasts and L side of groin Topical BID x 14 days, then BID PRN 11/20/19 23 023 Inactive dx: yeast dermatitis [place] Ultra Strength 4 %-30 %-10 % topical cream RxNorm: 520771 Apply 1 Gram(s) Topical QID PRN to feet and legs for neuropathic pain 11/11/19 23 024 Inactive clotrimazole 1 % topical cream RxNorm: 116221 Apply 1/2 Gram(s) Topical BID Apply to affected areas of groin, periarea, and abdominal topically 2 times daily 11/10/19 23 023 Inactive hydrocortisone 2.5 % topical cream RxNorm: 933473 Apply 1/2 Gram(s) Topical BID as needed 11/10/19 024 Inactive Levemir FlexPen 100 unit/mL (3 mL) solution subcutaneous insulin pen RxNorm: 622522 Inject 30 Unit(s) Subcutaneous BID 10/07/19 023 Inactive Humulin R U-500 (Concentrated) Insulin 500 unit/mL subcutaneous soln RxNorm: 426175 Inject 100 Unit(s) Subcutaneous TID 10/07/19 024 Inactive Ozempic 0.25 mg or 0.5 mg (2 mg/3 mL) subcutaneous pen injector RxNorm: 4173138 Inject 1/2 Milligram(s) Subcutaneous QW once a week 10/07/19 024 Inactive aripiprazole 15 mg tablet RxNorm: 999273 1/2 TAB (7.5MG) ORALLY DAILY (DX:MAJOR DEPRESSIVE DISORDER) 09/23/19 23 023 Inactive Accu-Chek Guide test strips RxNorm: Use 1 Test Strip QID 09/15/19 23 023 Inactive ok to substitute with any covered alternative test strip Lancets,Thin 28 gauge RxNorm: Use 1 as directed QID 09/15/19 23 023 Inactive torsemide 20 mg tablet RxNorm: 415127 Take 1 Tablet(s) Oral BID 09/09/19 23 024 Inactive d/c once daily dosing carvedilol 25 mg tablet RxNorm: 419201 Take 1 Tablet(s) Oral QD 08/25/19 024 Inactive pregabalin 150 mg capsule RxNorm: 426584 1 Capsule(s) Oral HS at bed time 08/18/19 023 Inactive pregabalin 100 mg capsule RxNorm: 832690 1 Capsule(s) Oral QAM every morning 08/18/19 023 Inactive carvedilol 25 mg tablet RxNorm: 892137 1 Tablet(s) Oral QD 07/28/19 23 023 Inactive lisinopril 20 mg tablet RxNorm: 176555 Give 1 Tablet(s) Oral QD 07/28/19 23 023 Inactive Lyrica 150 mg capsule RxNorm: 734863 Take 1 Capsule(s) Oral QHS every night at bedtime 07/19/19 23 023 Inactive d/c 100mg dose Diflucan 150 mg tablet RxNorm: 584591 Take 1 Tablet(s) Oral QD repeat on day 3 and 6 07/19/19 23 023 Inactive pregabalin 100 mg capsule RxNorm: 041886 Take 1 Capsule(s) Oral QAM every morning 07/19/19 023 Inactive gatifloxacin 0.5 % eye drops RxNorm: 003686 Instill 1 Drop(s) as directed TID Instill 1 drop in to affected eye(s) starting 1 day prior to surgery and continue until gone (do not exceed 4 weeks). 07/13/19 23 023 Inactive carvedilol 25 mg tablet RxNorm: 955165 2 Tablet(s) Oral BID 07/13/19 023 Inactive Humulin R Regular U-100 Insulin 100 unit/mL injection solution RxNorm: 579601 85 Unit(s) Injection TID 07/13/19 23 023 Inactive ketorolac 0.5 % eye drops RxNorm: 025721 Instill 1 Drop(s) as directed QID Instill 1 drop into affected eye(s) 4 times daily starting 1 day prior to surgery and continue until gone (do not exceed 4 weeks). 07/13/19 023 Inactive Diflucan 150 mg tablet RxNorm: 471697 Take 1 Tablet(s) Oral QD repeat on day 3 and 6 06/30/19 23 023 Inactive Accu-Chek Guide test strips RxNorm: Use 1 Test Strip QID Use 1 test strip to monitor blood glucose 4 times daily and as needed. Dx:E11.42. 06/23/19 23 023 Inactive ok to substitute with any covered alternative test strip dextromethorphan-gu aifenesin 10 mg-100 mg/5 mL oral liquid RxNorm: 390251 Take 10 Milliliter(s) Oral every 4 hours as needed for cough 06/19/19 23 023 Inactive dextromethorphan-gu aifenesin 10 mg-100 mg/5 mL oral liquid RxNorm: 284612 Take 10 Milliliter(s) Oral every 4 hours as needed for cough 06/19/19 023 Inactive Lyrica 150 mg capsule RxNorm: 418039 Take 1 Capsule(s) Oral QHS every night at bedtime 06/18/19 023 Inactive d/c 100mg dose aripiprazole 15 mg tablet RxNorm: 722672 /2 TAB (7.5MG) ORALLY DAILY (DX:MAJOR DEPRESSIVE DISORDER) 06/05/19 023 Inactive pregabalin 100 mg capsule RxNorm: 204249 1 Capsule(s) Oral QAM every morning 06/02/19 023 Inactive Banophen 50 mg capsule RxNorm: 9873800 Take 1 Capsule(s) Oral Q6H every 6 hours as needed 05/19/19 23 No Stop Date Active Novolog Flexpen U-100 Insulin aspart 100 unit/mL (3 mL) subcutaneous RxNorm: 4895387 Inject 10 Unit(s) Subcutaneous QHS every night at bedtime with nighttime snack 04/08/20 022 Inactive Novolog Flexpen U-100 Insulin aspart 100 unit/mL (3 mL) subcutaneous RxNorm: 2049534 Inject 42 Unit(s) Subcutaneous TID in addition to sliding scale 04/08/20 022 Inactive d/c 36u albuterol sulfate HFA 90 mcg/actuation aerosol inhaler RxNorm: 4185764 Take 2 Puff(s) Inhalation Q4H every four hours as needed as needed for SOB, cough, or wheezing 04/07/20 030 Active Banophen 50 mg capsule RxNorm: 3275701 Take 1 Capsule(s) Oral Q6H every 6 hours as needed 04/06/20 023 Inactive diphenhydramine 50 mg tablet RxNorm: 5096885 Take 1 Tablet(s) Oral Q6H every 6 hours as needed 04/06/20 22 022 Inactive diphenhydramine 50 mg tablet RxNorm: 2795057 1 Tablet(s) Oral Q6H every 6 hours as needed 04/06/20 22 022 Inactive Abilify 15 mg tablet RxNorm: 506843 1/2 Tablet(s) Oral QD 03/10/20 22 023 Inactive Shingrix (PF) 50 mcg/0.5 mL intramuscular suspension, kit RxNorm: 7051212 Administer 1/2 Milliliter(s) Intramuscular QD one time shingrix step 2 ( step 1 given 11/04/21) WITH needle - Nursing please administer upon arrival and once administered post a bridge message with date of administration, machine or machinery mechanic, expiration date, and lot# so we can update [facility] 02/18/20 22 022 Inactive dispense with needle Shingrix (PF) 50 mcg/0.5 mL intramuscular suspension, kit RxNorm: 9956803 Administer 1/2 Milliliter(s) Intramuscular QD one time shingrix step 2 ( step 1 given 11/04/21) WITH needle - Nursing please administer upon arrival and once administered post a bridge message with date of administration, machine or machinery mechanic, expiration date, and lot# so we can update [facility] 02/18/20 22 022 Inactive dispense with needle polyethylene glycol 3350 17 gram/dose oral powder RxNorm: 047551 Take 17=1 capful Gram(s) Oral QD mix with 4-8oz of liquid 01/08/20 22 023 Inactive take this in addition to BID prn order Lyrica 100 mg capsule RxNorm: 644382 Take 1 Capsule(s) Oral QAM every morning 01/08/20 22 022 Inactive d/c 50mg dose acetaminophen 500 mg tablet RxNorm: 658827 Take 1 Tablet(s) Oral TID 01/08/20 22 022 Inactive d/c PRN order Lyrica 150 mg capsule RxNorm: 843548 Take 1 Capsule(s) Oral QHS every night at bedtime 01/08/20 22 023 Inactive d/c 100mg dose Abilify 5 mg tablet RxNorm: 033105 Take 1 Tablet(s) Oral QD take 1 tab po QD #30 refill 5 dx: MDD 12/12/19 22 022 Inactive Abilify 5 mg tablet RxNorm: 595454 Take 1 Tablet(s) Oral QD take 1 tab po QD #30 refill 5 dx: MDD 12/12/19 22 022 Inactive Novolog Flexpen U-100 Insulin aspart 100 unit/mL (3 mL) subcutaneous RxNorm: 4811436 Inject 42 Unit(s) Subcutaneous TID in addition to sliding scale 12/10/19 22 022 Inactive d/c 36u chlorthalidone 25 mg tablet RxNorm: 428281 Take 1 Tablet(s) Oral QAM every morning 12/10/19 22 023 Inactive pregabalin 50 mg capsule RxNorm: 434067 Take 1 Capsule(s) Oral QAM every morning 11/12/19 22 022 Inactive tetanus-diphtheria toxoids-Td 2 Lf unit-2 Lf unit/0.5 mL IM suspension RxNorm: 139 Take 0.5 Miscellaneous Intramuscular 11/12/19 22 022 Inactive need tdap - nursing to administer upon arrival pregabalin 50 mg capsule RxNorm: 369054 Take 1 Capsule(s) Oral QAM every morning 10/16/19 22 022 Inactive pregabalin 50 mg capsule RxNorm: 121663 Take 1 Capsule(s) Oral QAM every morning 10/16/19 22 022 Inactive pregabalin 50 mg capsule RxNorm: 085630 1 Capsule(s) Oral QAM every morning 10/15/19 22 022 Inactive Shingrix (PF) 50 mcg/0.5 mL intramuscular suspension, kit RxNorm: 2869601 Administer 1/2 Milliliter(s) Intramuscular one time Nursing please administer upon arrival and once administered post a bridge message with date of administration, machine or machinery mechanic, expiration date, and lot# so we can update [facility]. 10/09/19 22 022 Inactive shingrix step 1 Shingrix (PF) 50 mcg/0.5 mL intramuscular suspension, kit RxNorm: 0424208 Administer 1/2 Milliliter(s) Intramuscular one time Nursing please administer upon arrival and once administered post a bridge message with date of administration, machine or machinery mechanic, expiration date, and lot# so we can update [facility]. 10/09/19 22 022 Inactive shingrix step 1 cholecalciferol (vitamin D3) 1,250 mcg (50,000 unit) capsule RxNorm: 712175 Take 1 Capsule(s) Oral QW once a week 10/08/19 22 024 Inactive tetanus,diphtheria toxoid ped (PF) 5 Lf unit-25 [...] aspart 100 unit/mL (3 mL) subcutaneous RxNorm: 8970168 Inject 10 Unit(s) Subcutaneous QHS every night at bedtime with nighttime snack 10/08/19 22 022 Inactive Shingrix (PF) 50 mcg/0.5 mL intramuscular suspension, kit RxNorm: 4195265 ADMINISTER 2-DOSE SERIES PER CDC GUIDELINES 10/08/19 22 022 Active Shingrix (PF) 50 mcg/0.5 mL intramuscular suspension, kit RxNorm: 8989158 ADMINISTER 2-DOSE SERIES PER CDC GUIDELINES 10/08/19 22 022 Inactive Novolog Flexpen U-100 Insulin aspart 100 unit/mL (3 mL) subcutaneous RxNorm: 5372620 Inject 36 Unit(s) Subcutaneous TID in addition to sliding scale 10/08/19 22 022 Inactive Novofine Autocover 30 gauge x 1/3 needle RxNorm: Use 1 Miscellaneous UD as directed Use 1 needle as directed to administer insulin 5 times a day Dx:E11.42. 10/03/19 22 022 Inactive ok to substitute with any covered alternative pen needle benzoyl peroxide 10 % topical cleanser RxNorm: 883050 Apply 1 Application Topical QD apply to face, wash rinse and dry once daily (may change to QOD if drying) 08/19/19 22 022 Inactive (%covered by insurance) #60ml refill 11 dx: acne benzoyl peroxide 10 % topical cleanser RxNorm: 838587 Apply 1 Application Topical QD apply to face, wash rinse and dry once daily (may change to QOD if drying) 08/19/19 22 022 Inactive (%covered by insurance) #60ml refill 11 dx: acne benzoyl peroxide 10 % topical cleanser RxNorm: 431957 Apply 1 Application Topical QD apply to face, wash rinse and dry once daily (may change to QOD if drying) 08/19/19 22 022 Inactive (%covered by insurance) #60ml refill 11 dx: acne Lyrica 50 mg capsule RxNorm: 936802 Take 1 Capsule(s) Oral QAM every morning Take 1 capsule by mouth once daily 08/19/19 022 Inactive benzoyl peroxide 10 % topical cleanser RxNorm: 781193 Apply 1 Application Topical QD apply to face, wash rinse and dry once daily (may change to QOD if drying) 08/19/19 22 022 Inactive (%covered by insurance) #60ml refill 11 dx: acne Lyrica 100 mg capsule RxNorm: 599573 Take 1 Capsule(s) Oral QHS every night at bedtime Take 1 capsule by mouth once daily at bedtime 08/19/19 22 022 Inactive Lyrica 100 mg capsule RxNorm: 544500 Take 1 Capsule(s) Oral QHS every night at bedtime Take 1 capsule by mouth once daily at bedtime 08/16/19 Inactive Lyrica 50 mg capsule RxNorm: 240430 Take 1 Capsule(s) Oral QAM every morning Take 1 capsule by mouth once daily 08/16/19 22 Inactive Levemir FlexTouch U-100 Insulin 100 unit/mL (3 mL) subcutaneous pen RxNorm: 210456 Inject 86 Unit(s) Subcutaneous BID 08/05/19 22 05/23/2 022 Inactive d/c 83units BID Lyrica 100 mg capsule RxNorm: 484478 Take 1 Capsule(s) Oral QHS every night at bedtime Take 1 capsule by mouth once daily at bedtime 07/14/19 22 022 Inactive Lyrica 50 mg capsule RxNorm: 070576 Take 1 Capsule(s) Oral QAM every morning Take 1 capsule by mouth once daily 07/14/19 22 022 Inactive Levemir FlexTouch U-100 Insulin 100 unit/mL (3 mL) subcutaneous pen RxNorm: 122690 Inject 83 Unit(s) Subcutaneous BID 07/08/19 22 [...] test strip hydralazine 50 mg tablet RxNorm: 090500 Take 1 Tablet(s) Oral QID 05/05/20 Inactive venlafaxine ER 225 mg tablet,extended release 24 hr RxNorm: 180380 Take 1 Tablet(s) Oral QD 05/05/20 Inactive venlafaxine ER 225 mg tablet,extended release 24 hr RxNorm: 993436 Take 1 Tablet(s) Oral QD 05/05/20 022 Inactive isosorbide mononitrate ER 30 mg tablet,extended release 24 hr RxNorm: 960459 Take 1 Tablet(s) Oral QD 05/05/20 024 Inactive hydralazine 50 mg tablet RxNorm: 257342 Take 1 Tablet(s) Oral QID 05/05/20 Inactive aspirin 81 mg tablet,delayed release RxNorm: 611049 Take 1 Tablet(s) Oral QD 03/31/20 022 Inactive Vitamin D2 1,250 mcg (50,000 unit) capsule RxNorm: 4818898 Take 1 Capsule(s) Oral QW once a week x 12 weeks 03/31/20 022 Inactive Vitamin D2 1,250 mcg (50,000 unit) capsule RxNorm: 1898076 Take 1 Capsule(s) Oral QW once a week 03/31/20 Inactive Zetia 10 mg tablet RxNorm: 772689 Take 1 Tablet(s) Oral QD 03/31/20 024 Inactive Zetia 10 mg tablet RxNorm: 405419 Take 1 Tablet(s) Oral QD 03/31/20 Inactive hydralazine 25 mg tablet RxNorm: 317710 Take 1 Tablet(s) Oral QID 03/31/20 021 Inactive hydralazine 25 mg tablet RxNorm: 389278 Take 1 Tablet(s) Oral QID 03/31/20 021 Inactive hydralazine 10 mg tablet RxNorm: 315830 Take 1 Tablet(s) Oral QID 03/03/20 021 Inactive cephalexin 500 mg tablet RxNorm: 606402 Take 1 Tablet(s) Oral QID 02/27/20 021 Inactive cephalexin 500 mg tablet RxNorm: 917925 Take 1 Tablet(s) Oral QID 02/27/20 021 Inactive lisinopril 40 mg tablet RxNorm: 030190 Take 1 Tablet(s) Oral QD 02/11/20 023 Inactive Eliquis 5 mg tablet RxNorm: 4267551 Take 1 Tablet(s) Oral BID 01/05/20 022 Inactive Eliquis 5 mg tablet RxNorm: 7490555 Take 2 Tablet(s) Oral QD 01/01/20 021 Inactive Lyrica 50 mg capsule RxNorm: 418248 Take 1 Capsule(s) Oral QAM every morning 12/24/19 021 Inactive Lyrica 100 mg capsule RxNorm: 588053 Take 1 Capsule(s) Oral QHS every night at bedtime 12/24/19 021 Inactive clotrimazole 1 % topical cream RxNorm: 058455 Apply to right foot and toes Topical BID 12/04/19 21 023 Inactive metoprolol succinate ER 200 mg tablet,extended release 24 hr RxNorm: 814525 Take 1 Tablet(s) Oral QD 12/04/19 023 Inactive ciprofloxacin 500 mg tablet RxNorm: 761933 Take 1 Tablet(s) Oral QD 11/30/19 021 Inactive DX ofloxacin otic drops Accu-Chek Guide test strips RxNorm: USE 1 TO CHECK GLUCOSE 4 TIMES DAILY AND NEEDED 11/15/19 21 023 Inactive Blood Glucose Test strips RxNorm: Use 1 Test Strip QID at PRN 11/05/19 21 023 Inactive E11.42 lisinopril 30 mg tablet RxNorm: 809008 Take 1 Tablet(s) Oral QD 10/30/19 021 Inactive lisinopril 20 mg tablet RxNorm: 685558 Take 1 Tablet(s) Oral QD 10/23/19 21 021 Inactive lisinopril 20 mg tablet RxNorm: 680604 Take 1 Tablet(s) Oral QD 10/23/19 21 021 Inactive lisinopril 10 mg tablet RxNorm: 645405 Take 1 Tablet(s) Oral QD 10/02/19 21 021 Inactive icosapent ethyl 1 gram capsule RxNorm: 3555570 Take 2 Capsule(s) (2 gm) Oral BID with meals 09/12/19 21 024 Inactive Okay to dispense one 2gm tab if you have that available. icosapent ethyl 1 gram capsule RxNorm: 5011540 Take 2 Capsule(s) Oral BID 09/12/19 21 021 Inactive Okay to dispense one 2gm tab if you have that available. amlodipine 10 mg tablet RxNorm: 606791 Take 1 Tablet(s) Oral QD 09/04/19 21 022 Inactive aspirin 81 mg tablet,delayed release RxNorm: 083443 Take 1 Tablet(s) Oral QD 09/04/19 21 021 Inactive Levemir FlexTouch U-100 Insulin 100 unit/mL (3 mL) subcutaneous pen RxNorm: 673293 Inject 150 Unit(s) Subcutaneous BID 09/04/19 21 022 Inactive venlafaxine ER 150 mg tablet,extended release 24 hr RxNorm: 501820 Take 1 Tablet(s) Oral QD 09/04/19 21 021 Inactive clotrimazole-betame thasone 1 %-0.05 % topical cream RxNorm: 815829 Apply to rash on red area on left abdomen/chest Topical BID 08/10/19 21 021 Inactive amlodipine 5 mg tablet RxNorm: 972462 Take 1 Tablet(s) Oral QD 07/31/19 21 Inactive cephalexin 500 mg tablet RxNorm: 353001 Take 1 Tablet(s) Oral BID BID - Twice Daily 07/31/19 21 021 Inactive Start 08/01/20 pantoprazole 40 mg tablet,delayed release RxNorm: 624286 Take 1 Tablet(s) Oral QAM every morning 07/08/19 022 Inactive senna 8.6 mg tablet RxNorm: 394102 Take 1 Tablet(s) Oral QD 07/08/19 Inactive carbamazepine 200 mg tablet RxNorm: 219224 Take 1 Tablet(s) Oral BID 07/08/19 022 Inactive clopidogrel 75 mg tablet RxNorm: 220329 Take 1 Tablet(s) Oral QD 07/08/19 21 021 Inactive Blood Glucose Test strips RxNorm: Use 1 Test Strip QID at PRN 07/08/19 Inactive E11.42 Novolog Flexpen U-100 Insulin aspart 100 unit/mL (3 mL) subcutaneous RxNorm: 3765123 Administer per sliding scale Milliliter(s) Subcutaneous TID 151-200: 10 u; 201-250: 20 u; 251-300: 30 u; 301-350: 40 u; 351-400: 50 u. 07/08/19 21 022 Inactive lisinopril 5 mg tablet RxNorm: 155134 Take 1 Tablet(s) Oral QD 07/08/19 021 Inactive Novolog Flexpen U-100 Insulin aspart 100 unit/mL (3 mL) subcutaneous RxNorm: 5917704 Inject 85 Unit(s) Subcutaneous TID 07/08/19 022 Inactive pravastatin 80 mg tablet RxNorm: 973080 Take 1 Tablet(s) Oral QHS every night at bedtime 07/08/19 023 Inactive clotrimazole 1 % topical cream RxNorm: 183994 Apply to bilateral groin areas Topical BID 07/08/19 21 022 Inactive metoprolol succinate ER 200 mg tablet,extended release 24 hr RxNorm: 654752 Take 1 Tablet(s) Oral QD 07/08/19 21 Inactive Vitamin D3 25 mcg (1,000 unit) tablet RxNorm: 683649 Take 1 Tablet(s) Oral QD 07/08/19 21 021 Inactive isosorbide dinitrate 30 mg tablet RxNorm: 995939 Take 1 Tablet(s) Oral QD 07/08/19 21 021 Inactive Levemir FlexTouch U-100 Insulin 100 unit/mL (3 mL) subcutaneous pen RxNorm: 010686 Inject 140 Unit(s) Subcutaneous BID 07/08/19 21 021 Inactive torsemide 20 mg tablet RxNorm: 232544 Take 1 Tablet(s) Oral QD 07/08/19 21 023 Inactive venlafaxine 75 mg tablet RxNorm: 519694 Take 1 Tablet(s) Oral QD 07/08/19 21 021 Inactive acetaminophen 500 mg tablet RxNorm: 204005 Take 1 Tablet(s) Oral TID as needed for headache 06/18/19 21 021 Inactive acetaminophen 500 mg tablet RxNorm: 386692 Take 1 Tablet(s) Oral TID as needed for headache 06/18/19 21 021 Inactive Lyrica 100 mg capsule RxNorm: 575072 Take 1 Capsule(s) Oral QHS every night at bedtime 06/11/19 21 021 Inactive Lyrica 50 mg capsule RxNorm: 021015 Take 1 Capsule(s) Oral QAM every morning 06/10/19 21 021 Inactive hydrocortisone 2.5 % topical cream RxNorm: 042893 Apply to bilateral groin creases Topical BID 05/15/20 20 021 Inactive clotrimazole 1 % topical cream RxNorm: 147144 Apply to bilateral groin areas Topical BID 05/15/20 20 021 Inactive Lyrica 50 mg capsule RxNorm: 145087 Take 1 Capsule(s) Oral QAM every morning 05/14/20 20 020 Inactive Lyrica 100 mg capsule RxNorm: 262109 Take 1 Capsule(s) Oral QHS every night [...] Inactive Nystop 100,000 unit/gram topical powder RxNorm: 068873 Apply to abd folds, under breasts and L side of groin Topical BID x 14 days, then BID PRN 04/08/20 20 Inactive dx: yeast dermatitis Lyrica 100 mg capsule RxNorm: 282502 Take 1 Capsule(s) Oral QHS every night at bedtime 03/13/20 20 Inactive Lyrica 50 mg capsule RxNorm: 614004 Take 1 Capsule(s) Oral QAM every morning 03/13/20 20 Inactive ketoconazole 2 % shampoo RxNorm: 547539 Apply Topical two times a week with showers 03/11/20 20 Inactive cholecalciferol (vitamin D3) 50 mcg (2,000 unit) tablet RxNorm: 007413 Take 1 Tablet(s) Oral QD 03/11/20 20 021 Inactive Zetia 10 mg tablet RxNorm: 541411 Take 1 Tablet(s) Oral QD 03/07/20 20 021 Inactive Zetia 10 mg tablet RxNorm: 120065 Take 1 Tablet(s) Oral QD 03/07/20 20 Inactive Lyrica 50 mg capsule RxNorm: 943488 Take 1 Capsule(s) Oral QAM every morning 02/15/20 20 Inactive Lyrica 100 mg capsule RxNorm: 020114 Take 1 Capsule(s) Oral QHS every night at bedtime 02/15/20 20 Inactive Lyrica 100 mg capsule RxNorm: 507684 Take 1 Capsule(s) Oral QHS every night at bedtime 02/15/20 20 Inactive Lyrica 50 mg capsule RxNorm: 803856 Take 1 Capsule(s) Oral QAM every morning 02/15/20 20 Inactive metoprolol succinate ER 200 mg tablet,extended release 24 hr RxNorm: 117730 Take 1 Tablet(s) Oral QD 08/11 Activeloperamide 2 mg capsuleRxNorm: 039495Rltm 1 Capsule(s) Oral QID as needed 06/12/2021ctivehydralazine 50 mg tabletRxNorm: 232237Tnjg 1 Tablet(s) Oral QID 08/11/2022ctiveSoft Touch LancetsRxNorm:qevcozwwmviqm52/19/2024ctive venlafaxine ER 75 mg capsule,extended release 24 hrRxNorm: 953185Ibmj 3 Capsule(s) Oral QD/Inactivepolyethylene glycol 3350 17 gram/dose oral powderRxNorm: 480072Uuku 17=1 capful Gram(s) Oral BID as needed mix with 4-8oz of wfasso54/Inactiveicosapent ethyl 1 gram capsuleRxNorm: 2002913Oego 2 Capsule(s) (2 gm) Oral BID with meals10/06/2022 10/05/2022InactiveOkay to dispense one 2gm tab if you have that available. Levemir FlexTouch U-100 Insulin 100 unit/mL (3 mL) subcutaneous penRxNorm: 599740Nmlyuy 80 Unit(s) Subcutaneous BID/InactiveNovolog Flexpen U-100 Insulin aspart 100 unit/mL (3 mL) subcutaneousRxNorm: 5340937 Insert 30 Unit(s) Subcutaneous TID with meals/Inactive [...] Date Referral: [facility] WPtel: [address], [address] [id number] USReferralRecords Airkdslg85/08/2023Referral: [facility] WPtel: [address] [id number] SWSbiciezgNfijaqmfc28/12/2022Referral: General CardiologyReferralCompleted 1Referral: General PsychologistReferralClosedReferral: General PsychiatristReferralPatient/Family Scheduling AppointmentReferral: General Physical MedicineReferralFacility Scheduling Appointment Instructions Comment Date Leonid is a Male being seen living at [facility]. Initial BPS visit 01/2020. PMHx including DMII, CAD w/ 5 stents, Depression, Seizure Disorder and CKD stage 3. He moved into [facility] in 12/2019 but after a hospitalization 05/2021 he moved to the the medical center to have closer nursing attention. Sister Jyotsna involved in his care cell# [phone] Guardian: Don (tapan met in person 09/01/21), [...] note from 11.08.2023 at [facility] (follow up 6 months)Colon & Rectal Surgery visit scheduled for 03/08/24 with Matilde Pérez PA-C. 02/08/2024
--- OUTSIDE RECORDS SUMMARY | 2024-07-22 18:00 | XMS_ITS | CCD ---
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 Chief Psychology Name Role Phone Harrison Durham Primary Care Provider Leona vailable Unavailable Chronic Care Management Unavaila ble Summary Purpose DataExchange Insurance Providers Payer name Policy type / Coverage type Covered green party ID Effective Begin Date Effective End Date [place] [id number] Unknown Unknown Medicaid [place] Medicare Part B [id number] Unknown Unknown Family history Sister Brittany Suggs Diagnosis Age At Onset No Family Disease Entered N/A Runs in the family Diagnosis Age At Onset No Known Diseases N/A Sister Blanka Mcduffie Diagnosis Age At Onset No Family Disease Entered N/A Social History Social History Element Codes Description Effec tive Dates Caregiver Assessment Unknown No guardian or HCPOA on file 07/11/[address]: 413638592 Never smoker 01/16 Sexually Active? Unknown No [...] Single 10/07/2021 Living arrangements Unknown [facility] 09/03/[address]: 605100506 No Alcohol Consum ption 09/02/2020 Allergies, Adverse Reactions, Alerts Substance Reaction Codes Entered Date Inactivated Date Status * NO KNOWN FOOD ALLERGIES Ymropgh1307/13/2023No Inactive DateActiveLISINOPRILRxNorm: 449064202/12/2020No Inactive DateActiveMetformin VSpYcetwyo28/28/2020No Inactive DateActive* NO KNOWN ENVIRONMENTAL JEVRYIYEHOizmygt95/27/2024No Inactive DateActive Problems Condition Codes Effective Dates Condition St atus Diabetic neuropathy associated with type 2 diabetes mellitus ICD-10: E11.40 ICD-9: 250.6002/5ActiveHemorrhoidsICD-10: K64.9 ICD-9: 455.6025ActiveLower extremity edemaICD-10: R60.0 ICD-9: 782.302/tivePVD (peripheral vascular disease)ICD-10: I73.9 ICD-9: 443.902tiveType 2 diabetes mellitus with diabetic polyneuropathy, with long-term current use of insulinICD-10: E11.42 ICD-9: 250.60025ActiveCandidal intertrigoICD-10: B37.2 ICD-9: 112.301/5ActiveHyperlipidemia associated with type 2 diabetes mellitusICD-10: E11.69 ICD-9: 250.80015ActiveHypertensive heart disease without heart failure ICD-10: I11.9 ICD-9: 402.90015ActiveHypokalemiaICD-10: E87.6 ICD-9: 276.801/5ActiveOnychogryposisICD-10: L60.2 ICD-9: 703.801/5ActiveStage 2 chronic 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ICD-10: E11.22 ICD-9: 250.4001/5ActiveAdvance care planningICD-10: Z71.89 ICD-9: V65.4912/4ActiveBMI 60.0-69.9, adultICD-10: Z68.44 ICD-9: V85.4410/4ActiveLow back painICD-10: M54.50 ICD-9: 724.210/ctiveParaparesis of both lower limbsICD-10: G82.20 ICD-9: 344.110/4ActivePhysical deconditioningICD-10: R53.81 ICD-9: 799.310/ctiveAdvanced care planning - to document end of life lsjhapxvwpyKytjgkj96/24/2024ctiveAmputated toe of right footICD-10: S98.131A ICD-9: 895.ctiveAnnual physical examICD-10: Z00.00 ICD-9: V70.009ctiveConstipation by delayed colonic transitICD-10: K59.01 ICD-9: 564.01002/08/2024ctiveHistory of anemia due to CKDICD-10: N18.9 ICD-9: 585.909ctiveHx of deep venous thrombosisICD-10: Z86.718 ICD-9: V12.51002/08/2024ctiveHypercoagulable stateICD-10: D68.59 ICD-9: 289.8109ctiveLearning disabilityICD-10: F81.9 ICD-9: 315.209ctiveMajor depression, recurrentICD-10: F33.9 ICD-9: 296.3009ctivePressure ulcer of left calf, unstageableICD-10: L89.890 ICD-9: 707.0909ctiveReducible umbilical herniaICD-10: K42.9 ICD-9: 553.109ctiveSeizure disorderICD-10: G40.909 ICD-9: 345.9009ctiveVitamin D deficiencyICD-10: E55.9 ICD-9: 268.909ctiveCallus of heelICD-10: L84 ICD-9: 52301/esolvedGout due to renal impairmentICD-10: M10.30 ICD-9: 274.1005esolvedHyperhidrosis of palmsICD-10: L74.512 ICD-9: 705.21010/12/2023esolvedHyperlipidemia, unspecifiedICD-10: E78.5 ICD-9: 272.405/esolvedOther penitentiary (current) drug therapyICD-10: Z79.899 ICD-9: V58.6905/esolvedPain of right heelICD-10: M79.671 ICD-9: 729.505/esolvedStage 2 chronic kidney diseaseICD-10: N18.2 ICD-9: 585.205/esolvedTinea pedis of both feetICD-10: B35.3 ICD-9: 110.405esolvedRecurrent major depressive disorder, in partial remissionICD-10: F33.41 ICD-9: 296.3504/ctiveCellulitisICD-10: L03.90 ICD-9: 682.9009/07/2023esolvedDandruff in adultICD-10: L21.0 ICD-9: 690.1804esolvedEncounter for other specified special examinationsICD-10: Z01.89 ICD-9: V72.8504esolvedEncounter for screening for nutritional disorder ICD-10: Z13.21 ICD-9: V77.9904esolvedImpacted cerumen, left earICD-10: H61.22 ICD-9: 380.404esolvedShortness of breathICD-10: R06.02 ICD-9: 786.0504esolvedSkin tagICD-10: L91.8 ICD-9: 701.904esolvedCoronary artery disease involving [place] coronary artery of [place] heart, angina presence unspecifiedICD-10: I25.10 ICD-9: 414.0102/4ActiveInappropriate sexual behaviorICD-10: Z72.89 ICD-9: 312.8910/ctivePre-op evaluationICD-10: Z01.818 ICD-9: V72.8403/ctiveSecondary hypertensionICD-10: I15.9 ICD-9: 405.9903/ctiveDepressionICD-10: F32.9 ICD-9: 753152ResolvedDVT (deep venous thrombosis)ICD-10: I82.409 ICD-9: 453.4009/2ResolvedEncounter for immunizationICD-10: Z23 ICD-9: V03.8909/2ResolvedLong term (current) use of insulinICD-10: Z79.4 2ResolvedMuscular painICD-10: M79.10 ICD-9: 729.109esolvedHypertension associated with diabetesICD-10: E11.59 ICD-9: 250.8008/2ResolvedContact with and (suspected) exposure to covid-19 ICD-10: Z20.822 ICD-9: V01.7908/1ResolvedOther infective acute otitis externa of left ear ICD-10: H60.392 ICD-9: 380.1008/esolvedScrotal skin lesionICD-10: N50.9 ICD-9: 608.908/1ResolvedAnemia due to stage 3b chronic kidney diseaseICD- 10: N18.32 ICD-9: 285.21051ResolvedChronic kidney disease, stage 3 unspecifiedICD- 10: N18.3004esolvedContact with and (suspected) exposure to other viral communicable diseasesICD-10: Z20.828 ICD-9: V01.7902/0582XutvfowmQechecfuHtwapsa40/28/2020ActiveDiabetes mellitus Type 9Hrfyuxv97/28/2020ActiveAnemia in chronic kidney diseaseICD-10: D63.1 02/12/2020ResolvedHyperlipidemia, unspecifiedICD-10: E78.509Resolved Medications Medication Codes Instructions Start Date Stop Date Status Fill Instructions Humulin R U-500 (Concentrated) Insulin 500 unit/mL subcutaneous soln RxNorm: 516535 Inject 100 Unit(s) Subcutaneous AC before meals Three times daily before meals. 07/24/19 25 025 Inactive ammonium lactate 12 % topical cream RxNorm: 838804 Apply 1 Application Topical BID 07/20/19 25 No Stop Date Active senna 8.6 mg tablet RxNorm: 882029 Take 1 Tablet(s) Oral QD 07/18/19 25 025 Inactive ezetimibe 10 mg tablet RxNorm: 211820 Take 1 Tablet(s) Oral QD 07/18/19 25 No Stop Date Active metoprolol succinate ER 200 mg tablet,extended release 24 hr RxNorm: 373246 Take 1 Tablet(s) Oral QD 06/19/19 25 No Stop Date Active pantoprazole 40 mg tablet,delayed release RxNorm: 359640 Take 1 Tablet(s) Oral QAM every morning 06/19/19 25 No Stop Date Active hydralazine 50 mg tablet RxNorm: 395274 Take 1 Tablet(s) Oral QID 06/19/19 25 No Stop Date Active carbamazepine 200 mg tablet RxNorm: 546793 Take 1 Tablet(s) Oral BID 06/19/19 25 No Stop Date Active amlodipine 10 mg tablet RxNorm: 631883 Take 1 Tablet(s) Oral QD 06/19/19 25 No Stop Date Active Eliquis 5 mg tablet RxNorm: 0982923 Take 1 Tablet(s) Oral BID 06/19/19 25 No Stop Date Active pen needle, diabetic 30 gauge x 3/16 RxNorm: Use 1 6 times per day w/insulin 06/14/19 25 026 Active pen needle, diabetic 30 gauge x 3/16 RxNorm: Use 1 needle 6 times per day w/insulin 06/14/19 25 025 Inactive nystatin 100,000 unit/gram topical powder RxNorm: 469239 Apply 1 Application Topical BID as needed abdominal/breast /groin folds 05/24/19 25 026 Active pregabalin 100 mg capsule RxNorm: 440882 Take 1 Capsule(s) Oral QAM every morning 05/22/19 25 025 Inactive nystatin 100,000 unit/gram topical powder RxNorm: 735520 Apply 1 Application Topical BID as needed abdominal/breast /groin folds 04/11/20 24 024 Inactive chlorthalidone 25 mg tablet RxNorm: 981940 Take 1 Tablet(s) Oral QAM every morning 04/06/20 24 No Stop Date Active pregabalin 150 mg capsule RxNorm: 464539 Take 1 Capsule(s) Oral QHS every night at bedtime 03/31/20 Inactive Vascepa 1 gram capsule RxNorm: 0863988 Take 2 Capsule(s) Oral BID 03/30/20 Active rosuvastatin 40 mg tablet RxNorm: 517975 1 TAB ORALLY EVERY EVENING (DX:CORONARY ARTERY DISEASE) 03/28/20 No Stop Date Active venlafaxine ER 75 mg capsule,extended release 24 hr RxNorm: 737250 3 CAPS (225MG) ORALLY DAILY (DX: MOOD DISORDER) 03/28/20 No Stop Date Active pregabalin 100 mg capsule RxNorm: 772403 Take 1 Capsule(s) Oral QAM every morning 03/20/20 Inactive cholecalciferol (vitamin D3) 1,250 mcg (50,000 unit) capsule RxNorm: 131834 Take 1 Capsule(s) Oral QW once a week 03/15/20 Active Lancets,Thin 28 gauge RxNorm: Use 1 as directed TID lancet 03/08/20 Inactive Lancets,Thin 28 gauge RxNorm: Use 1 as directed TID lancet 03/08/20 Inactive Pen Needle 30 gauge x 5/16 RxNorm: Pen(s) Use 1 needle as directed TID 03/08/20 Inactive Accu-Chek Guide Glucose Meter RxNorm: Use 1 Miscellaneous UD as directed Use glucose meter to monitor blood glucose 3 times daily. Dx:E11.42 03/08/20 Inactive Accu-Chek Guide test strips RxNorm: Use 1 Test Strip TID to test Blood glucose 03/08/20 Inactive ok to substitute with any covered alternative test strip Accu-Chek Guide test strips RxNorm: Use 1 Test Strip TID to test BS 03/08/20 Inactive ok to substitute with any covered alternative test strip Radha Enrique U-100 Insulin 100 unit/mL (3 mL) subcutaneous RxNorm: 4113072 Inject 40 Unit(s) Subcutaneous BID 03/07/20 025 Inactive Please dispense one month supply. Humulin R U-500 (Concentrated) Insulin 500 unit/mL subcutaneous soln RxNorm: 001207 Inject 100 Unit(s) Subcutaneous AC before meals Three times daily before meals. 03/07/20 Inactive Accu-Chek Guide Glucose Meter RxNorm: Use 1 Miscellaneous UD as directed Use glucose meter to monitor blood glucose 4 times daily and as needed. Dx:E11.42 03/04/20 Inactive Accu-Chek Guide test strips RxNorm: Use 1 Test Strip QID And PRN-- also dispense Soft Touch Lancets (QID and PRN) to be use with new Accu [place] meter 03/04/20 024 Inactive ok to substitute with any covered alternative test strip FreeStyle Chema 2 Sensor kit RxNorm: Use UD as directed 03/02/20 Inactive Pen Needle 30 gauge x 09/29 RxNorm: Pen(s) Use 1 needle as directed TID 03/02/20 Inactive nystatin 100,000 unit/gram topical powder RxNorm: 969283 Apply 1 Application Topical BID as needed abdominal/breast /groin folds 03/02/20 024 Inactive FreeStyle Chema 2 Sensor kit RxNorm: Use UD as directed 03/02/20 025 Inactive Accu-Chek Guide test strips RxNorm: Use [...] (Concentrated) Insulin 500 unit/mL subcutaneous soln RxNorm: 613531 Inject 100 Unit(s) Subcutaneous TID 02/17/20 24 024 Inactive Humulin R U-500 (Concentrated) Insulin 500 unit/mL subcutaneous soln RxNorm: 453124 Inject 100 Unit(s) Subcutaneous TID 02/10/20 24 024 Inactive Tusharagldestin MendenhallPen U-100 Insulin 100 unit/mL (3 mL) subcutaneous RxNorm: 8417581 Inject 30 Unit(s) Subcutaneous BID 02/10/20 24 024 Inactive Please dispense one month supply. pregabalin 100 mg capsule RxNorm: 542410 Take 1 Capsule(s) Oral QAM every morning 02/07/20 24 024 Inactive isosorbide mononitrate ER 60 mg tablet,extended release 24 hr RxNorm: 589747 Take 1 Tablet(s) Oral QD 02/01/20 24 025 Active aripiprazole 15 mg tablet RxNorm: 645289 Take 1/2 Tablet(s) Oral QD 02/01/20 24 025 Active torsemide 20 mg tablet RxNorm: 782081 1 TAB ORALLY DAILY (DX: EDEMA) 01/27/20 24 No Stop Date Active potassium chloride ER 20 mEq tablet,extended release(part/cryst) RxNorm: 1810009 2 TABS (40MEQ) ORALLY TWICE DAILY (DX: HYPOKALEMIA) 01/27/20 24 025 Inactive cephalexin 500 mg capsule RxNorm: 562779 Take 1 Capsule(s) Oral QID 12/17/19 24 024 Inactive cephalexin 500 mg capsule RxNorm: 363573 Take 1 Capsule(s) Oral QID 12/17/19 24 024 Inactive acetaminophen 500 mg tablet RxNorm: 754413 (MAX APAP:4GM/24HR) Take 1 Tablet(s) Oral TID as needed for pain 12/10/19 24 024 Inactive torsemide 20 mg tablet RxNorm: 053750 Take 1 Tablet(s) Oral QD 10/26/19 24 025 Inactive potassium chloride ER 20 mEq tablet,extended release RxNorm: 598252 Take 2 Tablet(s) Oral BID 10/26/19 24 025 Inactive torsemide 20 mg tablet RxNorm: 984753 Take 1 Tablet(s) Oral QD 10/26/19 24 024 Inactive potassium chloride ER 20 mEq tablet,extended release RxNorm: 216102 Take 2 Tablet(s) Oral BID 10/26/19 24 Inactive Artificial Tears (PF) 0.1 %-0.3 % drops in a dropperette RxNorm: 216526 Apply 1-2 Drop(s) Both eyes BID as needed 09/28/19 24 025 Inactive erythromycin 5 mg/gram (0.5 %) eye ointment RxNorm: 358555 Apply 1 Application Both eyes QHS every night at bedtime Instill ~1 cm ribbon into affected eye 09/28/19 24 024 Inactive Artificial Tears (PF) 0.1 %-0.3 % drops in a dropperette RxNorm: 457705 Apply 1-2 Drop(s) Both eyes BID as needed 09/28/19 24 024 Inactive erythromycin 5 mg/gram (0.5 %) eye ointment RxNorm: 313002 Apply 1 Application Both eyes QHS every night at bedtime Instill ~1 cm ribbon into affected eye 09/28/19 24 024 Inactive acetaminophen 500 mg tablet RxNorm: 380106 (MAX APAP:4GM/24HR) Take 1 Tablet(s) Oral TID as needed for pain 09/24/19 24 024 Inactive carvedilol 25 mg tablet RxNorm: 132947 Take 1 Tablet(s) Oral QD 09/08/19 24 No Stop Date Active pregabalin 100 mg capsule RxNorm: 914230 Take 1 Capsule(s) Oral QAM every morning 09/07/19 24 024 Inactive bisacodyl 10 mg rectal suppository RxNorm: 342759 Insert 1 Suppository Rectal QD as needed 07/13/19 24 No Stop Date Active polyethylene glycol 3350 17 gram/dose oral powder RxNorm: 322249 Take 17 Gram(s) Oral BID as needed mix in 4-8ox water 07/13/19 24 025 Inactive ketoconazole 2 % shampoo RxNorm: 651040 Apply 1 Application Topical UD as directed 07/13/19 24 No Stop Date Active Ozempic 1 mg/dose (4 mg/3 mL) subcutaneous pen injector RxNorm: 9403663 Inject 1 Milligram(s) Subcutaneous QW once a week 07/13/19 No Stop Date Active Guaifenesin AC 10 mg-100 mg/5 mL oral liquid RxNorm: 652893 Take 10 Milliliter(s) Oral Q4H every four hours as needed 07/13/19 24 No Stop Date Active hydrocortisone 2.5 % topical cream RxNorm: 918704 Apply 1 Application Topical BID as needed 07/13/19 24 No Stop Date Active rosuvastatin 20 mg sprinkle capsule RxNorm: 8124518 Take 1 Capsule(s) Oral QD 07/13/19 24 025 Inactive rosuvastatin 40 mg tablet RxNorm: 458066 Take 1 Tablet(s) Oral QPM every evening 07/13/19 24 024 Inactive ezetimibe 10 mg tablet RxNorm: 682312 Take 1 Tablet(s) Oral QD 07/13/19 24 025 Inactive aripiprazole 15 mg tablet RxNorm: 439898 Take 1/2 Tablet(s) Oral QD 07/13/19 24 024 Inactive isosorbide mononitrate ER 60 mg tablet,extended release 24 hr RxNorm: 160788 Take 1 Tablet(s) Oral QD 07/13/19 24 024 Inactive ammonium lactate 12 % topical cream RxNorm: 864423 Apply 1 Application Topical BID 07/13/19 24 025 Inactive Vascepa 1 gram capsule RxNorm: 2068590 Take 2 Capsule(s) Oral BID 07/13/19 24 024 Inactive venlafaxine ER 75 mg capsule,extended release 24 hr RxNorm: 678439 Take 3 Capsule(s) Oral QD 07/13/19 24 024 Inactive Basaglar KwikPen U-100 Insulin 100 unit/mL (3 mL) subcutaneous RxNorm: 2930496 Inject 30U SubQ twice daily 07/07/19 24 024 Inactive Please dispense one month supply. Basaglar KwikPen U-100 Insulin 100 unit/mL (3 mL) subcutaneous RxNorm: 8361294 Inject 30U SubQ twice daily 07/07/19 24 024 Inactive Please dispense one month supply. pregabalin 150 mg capsule RxNorm: 026233 Take 1 Capsule(s) Oral QHS every night at bedtime 07/05/19 024 Inactive pregabalin 150 mg capsule RxNorm: 209797 Take 1 Capsule(s) Oral QHS every night at bedtime 07/05/19 024 Inactive polyethylene glycol 3350 17 gram/dose oral powder RxNorm: 890616 Take 1 Packet Oral QD as needed (1 packet = 17g) mix with 4-8oz of liquid 06/15/19 24 024 Inactive bisacodyl 10 mg rectal suppository RxNorm: 041607 Insert one suppository per rectum once daily as needed for constipation 06/15/19 24 024 Inactive bisacodyl 10 mg rectal suppository RxNorm: 006257 Insert one suppository per rectum once daily as needed for constipation 06/15/19 024 Inactive pregabalin 100 mg capsule RxNorm: 076828 Take 1 Capsule(s) Oral QAM every morning 04/27/20 024 Inactive Levemir FlexPen 100 unit/mL (3 mL) solution subcutaneous insulin pen RxNorm: 389538 Inject 30 Unit(s) Subcutaneous BID 04/27/20 23 024 Inactive rosuvastatin 40 mg tablet RxNorm: 390417 Take 1 Tablet(s) Oral QPM every evening 04/16/20 024 Inactive D/C rosuvastatin 20mg venlafaxine ER 75 mg capsule,extended release 24 hr RxNorm: 706993 Take 3 Capsule(s) Oral QD 04/14/20 23 023 Inactive pregabalin 100 mg capsule RxNorm: 401381 Take 1 Capsule(s) Oral QAM every morning [...] strip clotrimazole 1 % topical cream RxNorm: 699212 Take apply topically to abdominal folds twice daily for 14 days 03/12/20 024 Inactive Ozempic 1 mg/dose (4 mg/3 mL) subcutaneous pen injector RxNorm: 7891961 Inject 1 Milligram(s) Subcutaneous QW once a week 03/11/20 23 023 Inactive rosuvastatin 20 mg tablet RxNorm: 012548 Take 1 Tablet(s) Oral QD 02/26/20 23 023 Inactive d/c pravastatin 80mg Ozempic 1 mg/dose (4 mg/3 mL) subcutaneous pen injector RxNorm: 6273761 Inject 1 Milligram(s) Subcutaneous QW once a week 02/20/20 23 023 Inactive pregabalin 150 mg capsule RxNorm: 357069 Take 1 Capsule(s) Oral HS at bed time 02/19/20 23 023 Inactive pregabalin 100 mg capsule RxNorm: 979553 Take 1 Capsule(s) Oral QAM every morning 02/18/20 023 Inactive venlafaxine ER 75 mg capsule,extended release 24 hr RxNorm: 062164 Take 3 Capsule(s) Oral QD 02/04/20 23 023 Inactive FreeStyle Chema 2 Sensor kit RxNorm: use as directed 02/04/20 23 023 Inactive FreeStyle Chema 2 Sensor kit RxNorm: use as directed 02/04/20 23 024 Inactive fluconazole 150 mg tablet RxNorm: 221387 Take 1 Tablet(s) Oral on day 3 and on day 6 02/03/20 23 024 Inactive venlafaxine ER 150 mg capsule,extended release 24 hr RxNorm: 040203 Take 1 Capsule(s) Oral QD 02/03/20 23 023 Inactive chlorthalidone 25 mg tablet RxNorm: 674918 Take 1 Tablet(s) Oral QAM every morning 02/03/20 23 024 Inactive acetaminophen 500 mg tablet RxNorm: 352435 1 TABLET ORALLY 3 TIMES DAILY (MAX APAP:4GM/24HR) 12/15/19 23 023 Inactive clotrimazole 1 % topical cream RxNorm: 294289 apply 1g topically to top of feet and in between toes BID 12/09/19 23 025 Inactive potassium chloride ER 20 mEq tablet,extended release RxNorm: 340270 Take 1 Tablet(s) Oral BID 12/09/19 024 Inactive d/c 20mEq once daily (sent from hospital) nystatin 100,000 unit/gram topical powder RxNorm: 356325 APPLY TO AFFECTED AREAS TOPICALLY 2 TIMES DAILY 11/21/19 023 Inactive Nystop 100,000 unit/gram topical powder RxNorm: 201059 Apply to abd folds, under breasts and L side of groin Topical BID x 14 days, then BID PRN 11/20/19 023 Inactive dx: yeast dermatitis [place] Ultra Strength 4 %-30 %-10 % topical cream RxNorm: 002161 Apply 1 Gram(s) Topical QID PRN to feet and legs for neuropathic pain 11/11/19 024 Inactive clotrimazole 1 % topical cream RxNorm: 369535 Apply 1/2 Gram(s) Topical BID Apply to affected areas of groin, periarea, and abdominal topically 2 times daily 11/10/19 23 023 Inactive hydrocortisone 2.5 % topical cream RxNorm: 531525 Apply 1/2 Gram(s) Topical BID as needed 11/10/19 024 Inactive Levemir FlexPen 100 unit/mL (3 mL) solution subcutaneous insulin pen RxNorm: 717887 Inject 30 Unit(s) Subcutaneous BID 10/07/19 23 023 Inactive Humulin R U-500 (Concentrated) Insulin 500 unit/mL subcutaneous soln RxNorm: 268951 Inject 100 Unit(s) Subcutaneous TID 10/07/19 23 024 Inactive Ozempic 0.25 mg or 0.5 mg (2 mg/3 mL) subcutaneous pen injector RxNorm: 3308579 Inject 1/2 Milligram(s) Subcutaneous QW once a week 10/07/19 23 024 Inactive aripiprazole 15 mg tablet RxNorm: 535940 1/2 TAB (7.5MG) ORALLY DAILY (DX:MAJOR DEPRESSIVE DISORDER) 09/23/19 23 023 Inactive Accu-Chek Guide test strips RxNorm: Use 1 Test Strip QID 09/15/19 23 023 Inactive ok to substitute with any covered alternative test strip Lancets,Thin 28 gauge RxNorm: Use 1 as directed QID 09/15/19 23 023 Inactive torsemide 20 mg tablet RxNorm: 231213 Take 1 Tablet(s) Oral BID 09/09/19 23 024 Inactive d/c once daily dosing carvedilol 25 mg tablet RxNorm: 587237 Take 1 Tablet(s) Oral QD 08/25/19 23 024 Inactive pregabalin 150 mg capsule RxNorm: 926590 1 Capsule(s) Oral HS at bed time 08/18/19 23 023 Inactive pregabalin 100 mg capsule RxNorm: 871589 1 Capsule(s) Oral QAM every morning 08/18/19 23 023 Inactive carvedilol 25 mg tablet RxNorm: 743632 1 Tablet(s) Oral QD 07/28/19 23 023 Inactive lisinopril 20 mg tablet RxNorm: 944747 Give 1 Tablet(s) Oral QD 07/28/19 23 023 Inactive Lyrica 150 mg capsule RxNorm: 157102 Take 1 Capsule(s) Oral QHS every night at bedtime 07/19/19 23 023 Inactive d/c 100mg dose Diflucan 150 mg tablet RxNorm: 408722 Take 1 Tablet(s) Oral QD repeat on day 3 and 6 07/19/19 23 023 Inactive pregabalin 100 mg capsule RxNorm: 261845 Take 1 Capsule(s) Oral QAM every morning 07/19/19 23 023 Inactive gatifloxacin 0.5 % eye drops RxNorm: 724422 Instill 1 Drop(s) as directed TID Instill 1 drop in to affected eye(s) starting 1 day prior to surgery and continue until gone (do not exceed 4 weeks). 07/13/19 023 Inactive carvedilol 25 mg tablet RxNorm: 868039 2 Tablet(s) Oral BID 07/13/19 023 Inactive Humulin R Regular U-100 Insulin 100 unit/mL injection solution RxNorm: 322647 85 Unit(s) Injection TID 07/13/19 023 Inactive ketorolac 0.5 % eye drops RxNorm: 375471 Instill 1 Drop(s) as directed QID Instill 1 drop into affected eye(s) 4 times daily starting 1 day prior to surgery and continue until gone (do not exceed 4 weeks). 07/13/19 023 Inactive Diflucan 150 mg tablet RxNorm: 050704 Take 1 Tablet(s) Oral QD repeat on day 3 and 6 06/30/19 023 Inactive Accu-Chek Guide test strips RxNorm: Use 1 Test Strip QID Use 1 test strip to monitor blood glucose 4 times daily and as needed. Dx:E11.42. 06/23/19 23 023 Inactive ok to substitute with any covered alternative test strip dextromethorphan-gu aifenesin 10 mg-100 mg/5 mL oral liquid RxNorm: 831406 Take 10 Milliliter(s) Oral every 4 hours as needed for cough 06/19/19 23 023 Inactive dextromethorphan-gu aifenesin 10 mg-100 mg/5 mL oral liquid RxNorm: 083641 Take 10 Milliliter(s) Oral every 4 hours as needed for cough 06/19/19 23 023 Inactive Lyrica 150 mg capsule RxNorm: 579018 Take 1 Capsule(s) Oral QHS every night at bedtime 06/18/19 23 023 Inactive d/c 100mg dose aripiprazole 15 mg tablet RxNorm: 330097 1/2 TAB (7.5MG) ORALLY DAILY (DX:MAJOR DEPRESSIVE DISORDER) 06/05/19 23 023 Inactive pregabalin 100 mg capsule RxNorm: 141746 1 Capsule(s) Oral QAM every morning 06/02/19 023 Inactive Banophen 50 mg capsule RxNorm: 6614295 Take 1 Capsule(s) Oral Q6H every 6 hours as needed 05/19/19 No Stop Date Active Novolog Flexpen U-100 Insulin aspart 100 unit/mL (3 mL) subcutaneous RxNorm: 7802932 Inject 10 Unit(s) Subcutaneous QHS every night at bedtime with nighttime snack 04/08/20 022 Inactive Novolog Flexpen U-100 Insulin aspart 100 unit/mL (3 mL) subcutaneous RxNorm: 2471139 Inject 42 Unit(s) Subcutaneous TID in addition to sliding scale 04/08/20 Inactive d/c 36u albuterol sulfate HFA 90 mcg/actuation aerosol inhaler RxNorm: 2995599 Take 2 Puff(s) Inhalation Q4H every four hours as needed as needed for SOB, cough, or wheezing 04/07/20 030 Active Banophen 50 mg capsule RxNorm: 7049276 Take 1 Capsule(s) Oral Q6H every 6 hours as needed 04/06/20 023 Inactive diphenhydramine 50 mg tablet RxNorm: 8206183 Take 1 Tablet(s) Oral Q6H every 6 hours as needed 04/06/20 022 Inactive diphenhydramine 50 mg tablet RxNorm: 3315202 1 Tablet(s) Oral Q6H every 6 hours as needed 04/06/20 022 Inactive Abilify 15 mg tablet RxNorm: 446268 1/2 Tablet(s) Oral QD 03/10/20 22 023 Inactive Shingrix (PF) 50 mcg/0.5 mL intramuscular suspension, kit RxNorm: 9534313 Administer 1/2 Milliliter(s) Intramuscular QD one time shingrix step 2 ( step 1 given 11/04/21) WITH needle - Nursing please administer upon arrival and once administered post a bridge message with date of administration, charge entry clerk, expiration date, and lot# so we can update [facility] 02/18/20 22 022 Inactive dispense with needle Shingrix (PF) 50 mcg/0.5 mL intramuscular suspension, kit RxNorm: 5078086 Administer 1/2 Milliliter(s) Intramuscular QD one time shingrix step 2 ( step 1 given 11/04/21) WITH needle - Nursing please administer upon arrival and once administered post a bridge message with date of administration, charge entry clerk, expiration date, and lot# so we can update [facility] 02/18/20 22 Inactive dispense with needle polyethylene glycol 3350 17 gram/dose oral powder RxNorm: 197323 Take 17=1 capful Gram(s) Oral QD mix with 4-8oz of liquid 01/08/20 22 025 Inactive take this in addition to BID prn order Lyrica 100 mg capsule RxNorm: 310133 Take 1 Capsule(s) Oral QAM every morning 01/08/20 22 022 Inactive d/c 50mg dose acetaminophen 500 mg tablet RxNorm: 686748 Take 1 Tablet(s) Oral TID 01/08/20 22 022 Inactive d/c PRN order Lyrica 150 mg capsule RxNorm: 792107 Take 1 Capsule(s) Oral QHS every night at bedtime 01/08/20 22 023 Inactive d/c 100mg dose Abilify 5 mg tablet RxNorm: 281020 Take 1 Tablet(s) Oral QD take 1 tab po QD #30 refill 5 dx: MDD 12/12/19 22 022 Inactive Abilify 5 mg tablet RxNorm: 810866 Take 1 Tablet(s) Oral QD take 1 tab po QD #30 refill 5 dx: MDD 12/12/19 22 022 Inactive Novolog Flexpen U-100 Insulin aspart 100 unit/mL (3 mL) subcutaneous RxNorm: 6079653 Inject 42 Unit(s) Subcutaneous TID in addition to sliding scale 12/10/19 22 022 Inactive d/c 36u chlorthalidone 25 mg tablet RxNorm: 463137 Take 1 Tablet(s) Oral QAM every morning 12/10/19 22 023 Inactive pregabalin 50 mg capsule RxNorm: 258919 Take 1 Capsule(s) Oral QAM every morning 11/12/19 22 022 Inactive tetanus-diphtheria toxoids-Td 2 Lf unit-2 Lf unit/0.5 mL IM suspension RxNorm: 139 Take 0.5 Miscellaneous Intramuscular 11/12/19 22 022 Inactive need tdap - nursing to administer upon arrival pregabalin 50 mg capsule RxNorm: 389794 Take 1 Capsule(s) Oral QAM every morning 10/16/19 22 022 Inactive pregabalin 50 mg capsule RxNorm: 687318 Take 1 Capsule(s) Oral QAM every morning 10/16/19 22 022 Inactive pregabalin 50 mg capsule RxNorm: 016420 1 Capsule(s) Oral QAM every morning 10/15/19 22 022 Inactive Shingrix (PF) 50 mcg/0.5 mL intramuscular suspension, kit RxNorm: 0262628 Administer 1/2 Milliliter(s) Intramuscular one time Nursing please administer upon arrival and once administered post a bridge message with date of administration, charge entry clerk, expiration date, and lot# so we can update [facility]. 10/09/19 22 022 Inactive shingrix step 1 Shingrix (PF) 50 mcg/0.5 mL intramuscular suspension, kit RxNorm: 8562958 Administer 1/2 Milliliter(s) Intramuscular one time Nursing please administer upon arrival and once administered post a bridge message with date of administration, charge entry clerk, expiration date, and lot# so we [...] aspart 100 unit/mL (3 mL) subcutaneous RxNorm: 6176497 Inject 10 Unit(s) Subcutaneous QHS every night at bedtime with nighttime snack 10/08/19 22 022 Inactive Shingrix (PF) 50 mcg/0.5 mL intramuscular suspension, kit RxNorm: 2993583 ADMINISTER 2-DOSE SERIES PER CDC GUIDELINES 10/08/19 22 Active Shingrix (PF) 50 mcg/0.5 mL intramuscular suspension, kit RxNorm: 6889027 ADMINISTER 2-DOSE SERIES PER CDC GUIDELINES 10/08/19 22 Inactive Novolog Flexpen U-100 Insulin aspart 100 unit/mL (3 mL) subcutaneous RxNorm: 7983641 Inject 36 Unit(s) Subcutaneous TID in addition to sliding scale 10/08/19 22 Inactive cholecalciferol (vitamin D3) 1,250 mcg (50,000 unit) capsule RxNorm: 339119 Take 1 Capsule(s) Oral QW once a week 10/08/19 024 Inactive Novofine Autocover 30 gauge x 1/3 needle RxNorm: Use 1 Miscellaneous UD as directed Use 1 needle as directed to administer insulin 5 times a day Dx:E11.42. 10/03/19 22 Inactive ok to substitute with any covered alternative pen needle benzoyl peroxide 10 % topical cleanser RxNorm: 931424 Apply 1 Application Topical QD apply to face, wash rinse and dry once daily (may change to QOD if drying) 08/19/19 22 022 Inactive (%covered by insurance) #60ml refill 11 dx: acne benzoyl peroxide 10 % topical cleanser RxNorm: 109211 Apply 1 Application Topical QD apply to face, wash rinse and dry once daily (may change to QOD if drying) 08/19/19 22 022 Inactive (%covered by insurance) #60ml refill 11 dx: acne benzoyl peroxide 10 % topical cleanser RxNorm: 197097 Apply 1 Application Topical QD apply to face, wash rinse and dry once daily (may change to QOD if drying) 08/19/19 22 022 Inactive (%covered by insurance) #60ml refill 11 dx: acne Lyrica 50 mg capsule RxNorm: 232984 Take 1 Capsule(s) Oral QAM every morning Take 1 capsule by mouth once daily 08/19/19 22 022 Inactive benzoyl peroxide 10 % topical cleanser RxNorm: 963642 Apply 1 Application Topical QD apply to face, wash rinse and dry once daily (may change to QOD if drying) 08/19/19 22 022 Inactive (%covered by insurance) #60ml refill 11 dx: acne Lyrica 100 mg capsule RxNorm: 106126 Take 1 Capsule(s) Oral QHS every night at bedtime Take 1 capsule by mouth once daily at bedtime 08/19/19 22 022 Inactive Lyrica 100 mg capsule RxNorm: 788709 Take 1 Capsule(s) Oral QHS every night at bedtime Take 1 capsule by mouth once daily at bedtime 08/16/19 22 022 Inactive Lyrica 50 mg capsule RxNorm: 574186 Take 1 Capsule(s) Oral QAM every morning Take 1 capsule by mouth once daily 08/16/19 22 022 Inactive Levemir FlexTouch U-100 Insulin 100 unit/mL (3 mL) subcutaneous pen RxNorm: 006540 Inject 86 Unit(s) Subcutaneous BID 08/05/19 22 022 Inactive d/c 83units BID Lyrica 100 mg capsule RxNorm: 234124 Take 1 Capsule(s) Oral QHS every night at bedtime Take 1 capsule by mouth once daily at bedtime 07/14/19 22 022 Inactive Lyrica 50 mg capsule RxNorm: 848768 Take 1 Capsule(s) Oral QAM every morning Take 1 capsule by mouth once daily 07/14/19 22 022 Inactive Levemir FlexTouch U-100 Insulin 100 unit/mL (3 mL) subcutaneous pen RxNorm: 576682 Inject 83 Unit(s) Subcutaneous BID 07/08/19 22 [...] test strip hydralazine 50 mg tablet RxNorm: 482481 Take 1 Tablet(s) Oral QID 05/05/20 21 022 Inactive venlafaxine ER 225 mg tablet,extended release 24 hr RxNorm: 560056 Take 1 Tablet(s) Oral QD 05/05/20 21 021 Inactive venlafaxine ER 225 mg tablet,extended release 24 hr RxNorm: 441305 Take 1 Tablet(s) Oral QD 05/05/20 21 022 Inactive isosorbide mononitrate ER 30 mg tablet,extended release 24 hr RxNorm: 576676 Take 1 Tablet(s) Oral QD 05/05/20 21 024 Inactive hydralazine 50 mg tablet RxNorm: 049185 Take 1 Tablet(s) Oral QID 05/05/20 21 021 Inactive aspirin 81 mg tablet,delayed release RxNorm: 102153 Take 1 Tablet(s) Oral QD 03/31/20 022 Inactive Vitamin D2 1,250 mcg (50,000 unit) capsule RxNorm: 9476590 Take 1 Capsule(s) Oral QW once a week x 12 weeks 03/31/20 022 Inactive Vitamin D2 1,250 mcg (50,000 unit) capsule RxNorm: 0441023 Take 1 Capsule(s) Oral QW once a week 03/31/20 021 Inactive Zetia 10 mg tablet RxNorm: 524614 Take 1 Tablet(s) Oral QD 03/31/20 024 Inactive Zetia 10 mg tablet RxNorm: 086409 Take 1 Tablet(s) Oral QD 03/31/20 021 Inactive hydralazine 25 mg tablet RxNorm: 181095 Take 1 Tablet(s) Oral QID 03/31/20 21 021 Inactive hydralazine 25 mg tablet RxNorm: 984599 Take 1 Tablet(s) Oral QID 03/31/20 021 Inactive hydralazine 10 mg tablet RxNorm: 261278 Take 1 Tablet(s) Oral QID 03/03/20 021 Inactive cephalexin 500 mg tablet RxNorm: 624021 Take 1 Tablet(s) Oral QID 02/27/20 021 Inactive cephalexin 500 mg tablet RxNorm: 355133 Take 1 Tablet(s) Oral QID 02/27/20 021 Inactive lisinopril 40 mg tablet RxNorm: 137063 Take 1 Tablet(s) Oral QD 02/11/20 21 023 Inactive Eliquis 5 mg tablet RxNorm: 2300732 Take 1 Tablet(s) Oral BID 01/05/20 21 025 Inactive Eliquis 5 mg tablet RxNorm: 6657786 Take 2 Tablet(s) Oral QD 01/01/20 21 021 Inactive Lyrica 50 mg capsule RxNorm: 297972 Take 1 Capsule(s) Oral QAM every morning 12/24/19 21 021 Inactive Lyrica 100 mg capsule RxNorm: 906018 Take 1 Capsule(s) Oral QHS every night at bedtime 12/24/19 21 021 Inactive clotrimazole 1 % topical cream RxNorm: 803417 Apply to right foot and toes Topical BID 12/04/19 21 023 Inactive metoprolol succinate ER 200 mg tablet,extended release 24 hr RxNorm: 537242 Take 1 Tablet(s) Oral QD 12/04/19 21 023 Inactive ciprofloxacin 500 mg tablet RxNorm: 834126 Take 1 Tablet(s) Oral QD 11/30/19 21 021 Inactive DX ofloxacin otic drops Accu-Chek Guide test strips RxNorm: USE 1 TO CHECK GLUCOSE 4 TIMES DAILY AND NEEDED 11/15/19 21 023 Inactive Blood Glucose Test strips RxNorm: Use 1 Test Strip QID at PRN 11/05/19 21 023 Inactive E11.42 lisinopril 30 mg tablet RxNorm: 305026 Take 1 Tablet(s) Oral QD 10/30/19 021 Inactive lisinopril 20 mg tablet RxNorm: 975674 Take 1 Tablet(s) Oral QD 10/23/19 21 021 Inactive lisinopril 20 mg tablet RxNorm: 052741 Take 1 Tablet(s) Oral QD 10/23/19 21 021 Inactive lisinopril 10 mg tablet RxNorm: 907164 Take 1 Tablet(s) Oral QD 10/02/19 21 021 Inactive icosapent ethyl 1 gram capsule RxNorm: 2800765 Take 2 Capsule(s) (2 gm) Oral BID with meals 09/12/19 21 024 Inactive Okay to dispense one 2gm tab if you have that available. icosapent ethyl 1 gram capsule RxNorm: 7810220 Take 2 Capsule(s) Oral BID 09/12/19 21 021 Inactive Okay to dispense one 2gm tab if you have that available. amlodipine 10 mg tablet RxNorm: 279867 Take 1 Tablet(s) Oral QD 09/04/19 21 021 Inactive aspirin 81 mg tablet,delayed release RxNorm: 917282 Take 1 Tablet(s) Oral QD 09/04/19 21 021 Inactive Levemir FlexTouch U-100 Insulin 100 unit/mL (3 mL) subcutaneous pen RxNorm: 044594 Inject 150 Unit(s) Subcutaneous BID 09/04/19 21 022 Inactive venlafaxine ER 150 mg tablet,extended release 24 hr RxNorm: 878617 Take 1 Tablet(s) Oral QD 09/04/19 21 021 Inactive clotrimazole-betame thasone 1 %-0.05 % topical cream RxNorm: 358917 Apply to rash on red area on left abdomen/chest Topical BID 08/10/19 21 021 Inactive amlodipine 5 mg tablet RxNorm: 356587 Take 1 Tablet(s) Oral QD 07/31/19 21 021 Inactive cephalexin 500 mg tablet RxNorm: 908649 Take 1 Tablet(s) Oral BID BID - Twice Daily 07/31/19 21 021 Inactive Start 08/01/20 pantoprazole 40 mg tablet,delayed release RxNorm: 464662 Take 1 Tablet(s) Oral QAM every morning 07/08/19 21 025 Inactive clopidogrel 75 mg tablet RxNorm: 820119 Take 1 Tablet(s) Oral QD 07/08/19 21 021 Inactive Blood Glucose Test strips RxNorm: Use 1 Test Strip QID at PRN 07/08/19 21 021 Inactive E11.42 senna 8.6 mg tablet RxNorm: 369096 Take 1 Tablet(s) Oral QD 07/08/19 21 025 Inactive Novolog Flexpen U-100 Insulin aspart 100 unit/mL (3 mL) subcutaneous RxNorm: 0878540 Administer per sliding scale Milliliter(s) Subcutaneous TID 151-200: 10 u; 201-250: 20 u; 251-300: 30 u; 301-350: 40 u; 351-400: 50 u. 07/08/19 21 022 Inactive lisinopril 5 mg tablet RxNorm: 108374 Take 1 Tablet(s) Oral QD 07/08/19 21 021 Inactive Novolog Flexpen U-100 Insulin aspart 100 unit/mL (3 mL) subcutaneous RxNorm: 8161556 Inject 85 Unit(s) Subcutaneous TID 07/08/19 022 Inactive pravastatin 80 mg tablet RxNorm: 167475 Take 1 Tablet(s) Oral QHS every night at bedtime 07/08/19 023 Inactive clotrimazole 1 % topical cream RxNorm: 879615 Apply to bilateral groin areas Topical BID 07/08/19 022 Inactive metoprolol succinate ER 200 mg tablet,extended release 24 hr RxNorm: 475770 Take 1 Tablet(s) Oral QD 07/08/19 021 Inactive Vitamin D3 25 mcg (1,000 unit) tablet RxNorm: 290979 Take 1 Tablet(s) Oral QD 07/08/19 021 Inactive isosorbide dinitrate 30 mg tablet RxNorm: 417306 Take 1 Tablet(s) Oral QD 07/08/19 21 021 Inactive carbamazepine 200 mg tablet RxNorm: 074232 Take 1 Tablet(s) Oral BID 07/08/19 21 025 Inactive Levemir FlexTouch U-100 Insulin 100 unit/mL (3 mL) subcutaneous pen RxNorm: 829608 Inject 140 Unit(s) Subcutaneous BID 07/08/19 021 Inactive torsemide 20 mg tablet RxNorm: 438443 Take 1 Tablet(s) Oral QD 07/08/19 21 023 Inactive venlafaxine 75 mg tablet RxNorm: 383712 Take 1 Tablet(s) Oral QD 07/08/19 021 Inactive acetaminophen 500 mg tablet RxNorm: 891169 Take 1 Tablet(s) Oral TID as needed for headache 06/18/19 021 Inactive acetaminophen 500 mg tablet RxNorm: Take 1 Tablet(s) Oral TID as needed for headache 06/18/19 21 021 Inactive Lyrica 100 mg capsule RxNorm: 377530 Take 1 Capsule(s) Oral QHS every night at bedtime 06/11/19 21 021 Inactive Lyrica 50 mg capsule RxNorm: 144946 Take 1 Capsule(s) Oral QAM every morning 06/10/19 21 021 Inactive hydrocortisone 2.5 % topical cream RxNorm: 927369 Apply to bilateral groin creases Topical BID 05/15/20 20 021 Inactive clotrimazole 1 % topical cream RxNorm: 639068 Apply to bilateral groin areas Topical BID 05/15/20 20 021 Inactive Lyrica 50 mg capsule RxNorm: 364603 Take 1 Capsule(s) Oral QAM every morning 05/14/20 20 020 Inactive Lyrica 100 mg capsule RxNorm: 979280 Take 1 Capsule(s) Oral QHS every night [...] Inactive Nystop 100,000 unit/gram topical powder RxNorm: 946278 Apply to abd folds, under breasts and L side of groin Topical BID x 14 days, then BID PRN 04/08/20 20 020 Inactive dx: yeast dermatitis Lyrica 100 mg capsule RxNorm: 661575 Take 1 Capsule(s) Oral QHS every night at bedtime 03/13/20 20 Inactive Lyrica 50 mg capsule RxNorm: 701657 Take 1 Capsule(s) Oral QAM every morning 03/13/20 20 Inactive ketoconazole 2 % shampoo RxNorm: 538779 Apply Topical two times a week with showers 03/11/20 20 024 Inactive cholecalciferol (vitamin D3) 50 mcg (2,000 unit) tablet RxNorm: 945394 Take 1 Tablet(s) Oral QD 03/11/20 20 021 Inactive Zetia 10 mg tablet RxNorm: 820407 Take 1 Tablet(s) Oral QD 03/07/20 20 021 Inactive Zetia 10 mg tablet RxNorm: 236154 Take 1 Tablet(s) Oral QD 03/07/20 20 Inactive Lyrica 50 mg capsule RxNorm: 144704 Take 1 Capsule(s) Oral QAM every morning 02/15/20 20 Inactive Lyrica 100 mg capsule RxNorm: 484668 Take 1 Capsule(s) Oral QHS every night at bedtime 02/15/20 20 Inactive Lyrica 100 mg capsule RxNorm: 567192 Take 1 Capsule(s) Oral QHS every night at bedtime 02/15/20 20 Inactive Lyrica 50 mg capsule RxNorm: 204022 Take 1 Capsule(s) Oral QAM every morning 02/15/20 20 020 Inactive loperamide 2 mg capsule RxNorm: 719961 Take 1 Capsule(s) Oral QID as needed 09/06/19 25 025 Inactive venlafaxine ER 75 mg capsule,extended release 24 hr RxNorm: 984020 Take 3 Capsule(s) Oral QD 06/12/19 22 023 Inactive polyethylene glycol 3350 17 gram/dose oral powder RxNorm: 255670 Take 17=1 capful Gram(s) Oral BID as needed mix with 4-8oz of liquid 06/12/19 22 024 Inactive icosapent ethyl 1 gram capsule RxNorm: 9262035 Take 2 Capsule(s) (2 gm) Oral BID with meals 10/07/19 023 Inactive Okay to dispense one 2gm tab if you have that available. Levemir FlexTouch U-100 Insulin 100 unit/mL (3 mL) subcutaneous pen RxNorm: 420246 Inject 80 Unit(s) Subcutaneous BID 07/14/19 23 023 Inactive metoprolol succinate ER 200 mg tablet,extended release 24 hr RxNorm: 868744 Take 1 Tablet(s) Oral QD 08/12/19 025 Inactive hydralazine 50 mg tablet RxNorm: 942420 Take 1 Tablet(s) Oral QID 08/12/19 025 Inactive Soft Touch Lancets RxNorm: miscellaneous 03/04/20 24 025 Inactive Novolog Flexpen U-100 Insulin aspart 100 unit/mL (3 mL) subcutaneous RxNorm: 0237388 Insert 30 Unit(s) Subcutaneous TID with meals [...] Independent 02/08/2024 Functional Assessment Unknown ADL - Toileting Independe nt 02/08/2024 Functional Assessment Unknown ADL [...] Planned Activity Notes Codes Status Date Referral: [id number] [place]erralAppointment [id number]/06/2025Referral: [facility]/Endocrinology WPtel: 8 [facility] 3 [id number] USReferralNo Records Augueyby75/24/2025Referral: [facility] W[facility]el[facility] [address] [address] [id number] USReferralRecords [id number]/08/2023Referral: [facility] WPtel: [address] [facility] [address] [id number]/12/2022Referral: General CardiologyReferralCompleted 1Referral: General PsychologistReferralClosedReferral: General PsychiatristReferralPatient/Family [...] Sister Jyotsna involved in his care cell# [phone] Guardian: Giulia (tapan met in person 09/01/21), now has Lexii (same group as giulia)AWV 9.. Lab Schedule: *September (CBC with diff, CMP, [...] in 1 year to monitor growth (due )04.04.2024: A1c ordered by endocrine (9.8%)05.15.2024: BMP Na 139. K 3.7. BUN 16.9. Creatinine 1.02. eGFR 82. BG 299H. Lipid panel TC 116. Trigs 575H. HDL 28L. LDL cannot calculate because trigs >400. nonHDL 88.Colon & Rectal Surgery visit scheduled for 06.19.2023 with Matilde Pérez PA-C. Endocrinology appointment 05.26.2024 with Jessa Webster MD at [facility]. Start Pioglitazone 15 mg QD. Stop Basaglar insulin. Increase Ozempic 2 mg once wkly. Continue Humalin R U-500 100 units with meals TID. FOLLOW UP 2 MONTHS. If BG >400 add 50 units to next scheduled dose of Humalin R U 500 insulin 06/12/2024
--- OUTSIDE RECORDS SUMMARY | 2024-10-19 18:07 | XMS_ITS | CCD ---
Author Name Cecilio Durham Address [address] [place] [address] Phone Organization [facility] Phone Care Team Providers Care Surgeon Chief Name Role Phone Harrison Durham Primary Care Provider Leona vailable Unavailable Chronic Care Management Unavaila ble Summary Purpose DataExchange Insurance Providers Payer name Policy type / Coverage type Covered green party ID Effective Begin Date Effective End Date Medicare [place] Part B [id number] Unknown Unknown [place] Part B [id number] Unknown Unknown Family history Sister Brittany Suggs Diagnosis Age At Onset No Family Disease Entered N/A Runs in the family Diagnosis Age At Onset No Known Diseases N/A Sister Blanka Mcduffie Diagnosis Age At Onset No Family Disease Entered N/A Social History Social History Element Codes Description Effec tive Dates Caregiver Assessment Unknown Guardian or HCPOA on file 09/04/2024 Caregiver Assessment Unknown No guardian or HCPOA on file 07/11/[address]: 673020790 Never smoker 01/16 Sexually Active? Unknown No [...] Unknown Assisted 09/03/[address]: 316230056 No Alcohol Consum ption 09/02/2020 Allergies, Adverse Reactions, Alerts Substance Reaction Codes Entered Date Inactivated Date Status * NO KNOWN FOOD ALLERGIES Iwgbyzh9807/13/2023 Inactive DateActiveLISINOPRILRxNorm: 5438319 Inactive DateActiveMetformin TEbAjbyrgo68/28/2020 Inactive DateActive* NO KNOWN ENVIRONMENTAL [id number]/27/2024 Inactive DateActive Problems Condition Codes Effective Dates Condition St atus Amputated toe of right foot ICD-10: S98. 131A ICD-9: 895.0055ActiveHypercoagulable stateICD-10: D68.59 ICD-9: 289.8105tiveHypokalemiaICD-10: E87.6 ICD-9: 276.8055ActiveLower extremity edemaICD-10: R60.0 ICD-9: 782.305/5ActiveMajor depression, recurrentICD-10: F33.9 ICD-9: 296.30055ActiveOnychogryposisICD-10: L60.2 ICD-9: 703.805ActivePulmonary noduleSNOMED CT: 208006198 ICD-10: R91.1 ICD-9: 793.11055ActiveRecurrent major depressive disorder, in partial remissionICD-10: F33.41 ICD-9: 296.35055ActiveStage 2 chronic 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ICD-10: E11.22 ICD-9: 250.40055ActiveType 2 diabetes mellitus with diabetic polyneuropathy, with long-term current use of insulinICD-10: E11.42 ICD-9: 250.60055ActivePressure ulcer of left calf, unstageableICD-10: L89.890 ICD-9: 707.0910/10/2024ResolvedConstipation by delayed colonic transitICD-10: K59.01 ICD-9: 564.01045ActiveLoose stoolsSNOMED CT: 861815790 ICD-10: R19.5 ICD-9: 787.7045ActiveBody mass index [BMI] 60.0-69.9, adultSNOMED CT: 492424027 ICD-10: Z68.44 ICD-9: V85.44035ActiveMixed incontinenceSNOMED CT: 05193124 ICD-10: N39.46 ICD-9: 788.33035ActiveDiabetic neuropathy associated with type 2 diabetes mellitusICD-10: E11.40 ICD-9: 250.60025ActiveHemorrhoidsICD-10: K64.9 ICD-9: 455.6025ActivePVD (peripheral vascular disease)ICD-10: I73.9 ICD-9: 443.9025ActiveCandidal intertrigoICD-10: B37.2 ICD-9: 112.301/5ActiveHyperlipidemia associated with type 2 diabetes mellitusICD-10: E11.69 ICD-9: 250.8001/5ActiveHypertensive heart disease without heart failure ICD-10: I11.9 ICD-9: 402.90015ActiveAdvance care planningICD-10: Z71.89 ICD-9: V65.49124ActiveLow back painICD-10: M54.50 ICD-9: 724.2104ActiveParaparesis of both lower limbsICD-10: G82.20 ICD-9: 344.110/ctivePhysical deconditioningICD-10: R53.81 ICD-9: 799.310ctiveAdvanced care planning - to document end of life dxluiwvzspvRdqjgwc26ctiveAnnual physical examICD-10: Z00.00 ICD-9: V70.009ctiveHistory of anemia due to CKDICD-10: N18.9 ICD-9: 585.909/ctiveHx of deep venous thrombosisICD-10: Z86.718 ICD-9: V12.5109ctiveLearning disabilityICD-10: F81.9 ICD-9: 315.209/24/2024ActiveReducible umbilical herniaICD-10: K42.9 ICD-9: 553.109/ctiveSeizure disorderICD-10: G40.909 ICD-9: 345.9009/ctiveVitamin D deficiencyICD-10: E55.9 ICD-9: 268.909/ctiveCallus of heelICD-10: L84 ICD-9: 25888/esolvedGout due to renal impairmentICD-10: M10.30 ICD-9: 274.1005esolvedHyperhidrosis of palmsICD-10: L74.512 ICD-9: 705.21010/12/2023esolvedHyperlipidemia, unspecifiedICD-10: E78.5 ICD-9: 272.405esolvedOther halfway (current) drug therapyICD-10: Z79.899 ICD-9: V58.6905esolvedPain of right heelICD-10: M79.671 ICD-9: 729.505esolvedStage 2 chronic kidney diseaseICD-10: N18.2 ICD-9: 585.205esolvedTinea pedis of both feetICD-10: B35.3 ICD-9: 110.405esolvedCellulitisICD-10: L03.90 ICD-9: 682.904/esolvedDandruff in adultICD-10: L21.0 ICD-9: 690.1804/esolvedEncounter for other specified special examinationsICD-10: Z01.89 ICD-9: V72.8504/esolvedEncounter for screening for nutritional disorder ICD-10: Z13.21 ICD-9: V77.9904/esolvedImpacted cerumen, left earICD-10: H61.22 ICD-9: 380.404/esolvedShortness of breathICD-10: R06.02 ICD-9: 786.0504/23/2024ResolvedSkin tagICD-10: L91.8 ICD-9: 701.904/4ResolvedCoronary artery disease involving [place] coronary artery of [place] heart, angina presence unspecifiedICD-10: I25.10 ICD-9: 414.0102/4ActiveInappropriate sexual behaviorICD-10: Z72.89 ICD-9: 312.8910/ctivePre-op evaluationICD-10: Z01.818 ICD-9: V72.8403/ctiveSecondary hypertensionICD-10: I15.9 ICD-9: 405.9903/ctiveDepressionICD-10: F32.9 ICD-9: 93583/2ResolvedDVT (deep venous thrombosis)ICD-10: I82.409 ICD-9: 453.4009esolvedEncounter for immunizationICD-10: Z23 ICD-9: V03.89092ResolvedLong term (current) use of insulinICD-10: Z79.4 2ResolvedMuscular painICD-10: M79.10 ICD-9: 729.109esolvedHypertension associated with diabetesICD-10: E11.59 ICD-9: 250.8008/2ResolvedContact with and (suspected) exposure to covid-19 ICD-10: Z20.822 ICD-9: V01.79081ResolvedOther infective acute otitis externa of left ear ICD-10: H60.392 ICD-9: 380.1008/esolvedScrotal skin lesionICD-10: N50.9 ICD-9: 608.9081ResolvedAnemia due to stage 3b chronic kidney diseaseICD- 10: N18.32 ICD-9: 285.2105/1ResolvedChronic kidney disease, stage 3 unspecifiedICD- 10: N18.30041ResolvedContact with and (suspected) exposure to other viral communicable diseasesICD-10: Z20.828 ICD-9: V01.7902/1423CvbxsymnGvdhmfalIwpxsui77/28/2020ActiveDiabetes mellitus Type 2Hynmycw08/28/2020ActiveAnemia in chronic kidney diseaseICD-10: D63.1 02/12/2020ResolvedHyperlipidemia, unspecifiedICD-10: E78.Resolved Medications Medication Codes Instructions Start Date Stop Date Status Fill Instructions potassium chloride ER 20 mEq tablet,extended release RxNorm: 030948 Take 2 Tablet(s) Oral TID (dx: hypokalemia) 09/14/19 25 026 Active potassium chloride ER 20 mEq tablet,extended release RxNorm: 081843 Take 2 Tablet(s) Oral TID (dx: hypokalemia) 09/14/19 25 025 Inactive loperamide 2 mg tablet RxNorm: 836107 Take 2 Tablet(s) Oral UD as directed as needed 2 tabs after first loose stool then 1 tab after each subsequent stool PRN. Do not exceed 4 doses in 24 hours. Do not administer until after 3 loose stools. 09/06/19 25 No Stop Date Active Minerin Creme topical RxNorm: Apply 1 Application Topical QD as needed 09/06/19 No Stop Date Active senna 8.6 mg tablet RxNorm: 025253 Take 1 Tablet(s) Oral QD as needed and 1 tab BID prn 09/06/19 No Stop Date Active cyclobenzaprine 10 mg tablet RxNorm: 502302 Take 1 Tablet(s) Oral QHS every night at bedtime as needed 09/06/19 25 No Stop Date Active loperamide 2 mg tablet RxNorm: 622173 Take 2 Tablet(s) Oral UD as directed as needed 2 tabs after first loose stool then 1 tab after each subsequent stool PRN Do not exceed 4 doses in 24 hours. Do not administer until after 3 loose stools. 09/06/19 25 026 Active pioglitazone 15 mg tablet RxNorm: 155409 Take 1 Tablet(s) Oral QD 09/06/19 25 No Stop Date Active loperamide 2 mg tablet RxNorm: 297045 Take 2 Tablet(s) Oral UD as directed as needed 2 tabs after first loose stool then 1 tab after each subsequent stool PRN Do not exceed 4 doses in 24 hours. Do not administer until after 3 loose stools. 09/06/19 Inactive pregabalin 100 mg capsule RxNorm: 065710 1 CAPSULE BY MOUTH EVERY MORNING (DX: NEUROPATHY) 08/23/19 25 Active FACILITY IS REQUESTING REFILL. PRIOR RX HAS BEEN EXHAUSTED. THANK YOU. pregabalin 150 mg capsule RxNorm: 362304 1 CAPSULE BY MOUTH AT BEDTIME (DX: NEUROPATHY) 08/21/19 25 Active FACILITY IS REQUESTING A REFILL OF THIS MEDICATION, THANK YOU! senna 8.6 mg tablet RxNorm: 363907 Take 1 Tablet(s) Oral QD as needed for constipation on day 2 of no bowel movement 08/09/19 Inactive Miralax 17 gram/dose oral powder RxNorm: 861853 Administer 17 Gram(s) Oral QD as needed for constipation on day 3 of no bowel movement 08/09/19 25 025 Inactive senna 8.6 mg tablet RxNorm: 307482 Take 1 Tablet(s) Oral QD as needed for constipation on day 2 of no bowel movement 08/09/19 Inactive Miralax 17 gram/dose oral powder RxNorm: 465858 Administer 17 Gram(s) Oral QD as needed for constipation on day 3 of no bowel movement 08/09/19 025 Inactive pregabalin 100 mg capsule RxNorm: 024354 Take 1 Capsule(s) Oral QAM every morning 08/08/19 025 Inactive Accu-Chek Guide test strips RxNorm: Use 1 Test Strip TID to test blood glucose, Dx: E1142 08/02/19 No Stop Date Active ok to substitute with any covered alternative test strip Lancets,Thin 28 gauge RxNorm: Use 1 as directed TID lancet, Dx: E1142 08/02/19 No Stop Date Active Humulin R U-500 (Concentrated) Insulin 500 unit/mL subcutaneous soln RxNorm: 203326 Inject 100 Unit(s) Subcutaneous AC before meals Three times daily before meals. 07/24/19 25 025 Inactive ammonium lactate 12 % topical cream RxNorm: 524651 Apply 1 Application Topical BID 07/20/19 25 No Stop Date Active ezetimibe 10 mg tablet RxNorm: 305219 Take 1 Tablet(s) Oral QD 07/18/19 25 No Stop Date Active senna 8.6 mg tablet RxNorm: 537697 Take 1 Tablet(s) Oral QD 07/18/19 25 025 Inactive metoprolol succinate ER 200 mg tablet,extended release 24 hr RxNorm: 178116 Take 1 Tablet(s) Oral QD 06/19/19 25 No Stop Date Active pantoprazole 40 mg tablet,delayed release RxNorm: 151410 Take 1 Tablet(s) Oral QAM every morning 06/19/19 25 No Stop Date Active hydralazine 50 mg tablet RxNorm: 678943 Take 1 Tablet(s) Oral QID 06/19/19 25 No Stop Date Active carbamazepine 200 mg tablet RxNorm: 824966 Take 1 Tablet(s) Oral BID 06/19/19 25 No Stop Date Active amlodipine 10 mg tablet RxNorm: 414686 Take 1 Tablet(s) Oral QD 06/19/19 25 No Stop Date Active Eliquis 5 mg tablet RxNorm: 8700284 Take 1 Tablet(s) Oral BID 06/19/19 25 No Stop Date Active pen needle, diabetic 30 gauge x 3/16 RxNorm: Use 1 6 times per day w/insulin 06/14/19 25 026 Active pen needle, diabetic 30 gauge x 3/16 RxNorm: Use 1 needle 6 times per day w/insulin 06/14/19 25 025 Inactive nystatin 100,000 unit/gram topical powder RxNorm: 651288 Apply 1 Application Topical BID as needed abdominal/breast /groin folds 05/24/19 25 026 Active pregabalin 100 mg capsule RxNorm: 877556 Take 1 Capsule(s) Oral QAM every morning 05/22/19 25 025 Inactive nystatin 100,000 unit/gram topical powder RxNorm: 651482 Apply 1 Application Topical BID as needed abdominal/breast /groin folds 11 Inactive chlorthalidone 25 mg tablet RxNorm: 227571 Take 1 Tablet(s) Oral QAM every morning 04/06/20 No Stop Date Active pregabalin 150 mg capsule RxNorm: 270507 Take 1 Capsule(s) Oral QHS every night at bedtime 03/31/20 Inactive Vascepa 1 gram capsule RxNorm: 0320051 Take 2 Capsule(s) Oral BID 03/30/20 Active rosuvastatin 40 mg tablet RxNorm: 334376 1 TAB ORALLY EVERY EVENING (DX:CORONARY ARTERY DISEASE) 03/28/20 No Stop Date Active venlafaxine ER 75 mg capsule,extended release 24 hr RxNorm: 903623 3 CAPS (225MG) ORALLY DAILY (DX: MOOD DISORDER) 03/28/20 No Stop Date Active pregabalin 100 mg capsule RxNorm: 449197 Take 1 Capsule(s) Oral QAM every morning 03/20/20 Inactive cholecalciferol (vitamin D3) 1,250 mcg (50,000 unit) capsule RxNorm: 236434 Take 1 Capsule(s) Oral QW once a [...] Insulin 100 unit/mL (3 mL) subcutaneous RxNorm: 0386825 Inject 40 Unit(s) Subcutaneous BID 03/07/20 025 Inactive Please dispense one month supply. Humulin R U-500 (Concentrated) Insulin 500 unit/mL subcutaneous soln RxNorm: 428136 Inject 100 Unit(s) Subcutaneous AC before meals [...] PRN) to be use with new Accu [place] meter 03/04/20 Inactive ok to substitute with any covered alternative test strip FreeStyle Chema 2 Sensor kit RxNorm: Use UD as directed 03/02/20 Inactive Pen Needle 30 gauge x 5 RxNorm: Pen(s) Use 1 needle as directed TID 03/02/20 Inactive nystatin 100,000 unit/gram topical powder RxNorm: 819462 Apply 1 Application Topical BID as needed abdominal/breast /groin folds 03/02/20 Inactive FreeStyle Chema 2 Sensor kit RxNorm: Use UD as directed 03/02/20 Inactive Accu-Chek Guide test strips RxNorm: Use 1 Test Strip QID 03/02/20 Inactive ok to substitute with any covered alternative test strip Lancets,Thin 28 gauge RxNorm: Use 1 as directed QID lancet 03/02/20 Inactive Pen Needle 30 gauge x 5/16 RxNorm: Pen(s) Use 1 needle as directed TID 03/02/20 24 024 Inactive Humulin R U-500 (Concentrated) Insulin 500 unit/mL subcutaneous soln RxNorm: 454593 Inject 100 Unit(s) Subcutaneous TID 02/17/20 24 024 Inactive Humulin R U-500 (Concentrated) Insulin 500 unit/mL subcutaneous soln RxNorm: 883519 Inject 100 Unit(s) Subcutaneous TID 02/10/20 24 024 Inactive Basaglar ValorieikPen U-100 Insulin 100 unit/mL (3 mL) subcutaneous RxNorm: 2553784 Inject 30 Unit(s) Subcutaneous BID 02/10/20 24 024 Inactive Please dispense one month supply. pregabalin 100 mg capsule RxNorm: 411361 Take 1 Capsule(s) Oral QAM every morning 02/07/20 24 024 Inactive isosorbide mononitrate ER 60 mg tablet,extended release 24 hr RxNorm: 530783 Take 1 Tablet(s) Oral QD 02/01/20 24 025 Active aripiprazole 15 mg tablet RxNorm: 488106 Take 1/2 Tablet(s) Oral QD 02/01/20 24 025 Active torsemide 20 mg tablet RxNorm: 251426 1 TAB ORALLY DAILY (DX: EDEMA) 01/27/20 No Stop Date Active potassium chloride ER 20 mEq tablet,extended release(part/cryst) RxNorm: 0504922 2 TABS (40MEQ) ORALLY TWICE DAILY (DX: HYPOKALEMIA) 01/27/20 24 025 Inactive cephalexin 500 mg capsule RxNorm: 617553 Take 1 Capsule(s) Oral QID 12/17/19 24 024 Inactive cephalexin 500 mg capsule RxNorm: 860771 Take 1 Capsule(s) Oral QID 12/17/19 24 024 Inactive acetaminophen 500 mg tablet RxNorm: 727709 (MAX APAP:4GM/24HR) Take 1 Tablet(s) Oral TID as needed for pain 12/10/19 24 024 Inactive torsemide 20 mg tablet RxNorm: 630472 Take 1 Tablet(s) Oral QD 10/26/19 24 024 Inactive potassium chloride ER 20 mEq tablet,extended release RxNorm: 138856 Take 2 Tablet(s) Oral BID 10/26/19 24 024 Inactive torsemide 20 mg tablet RxNorm: 300190 Take 1 Tablet(s) Oral QD 10/26/19 24 Inactive potassium chloride ER 20 mEq tablet,extended release RxNorm: 303029 Take 2 Tablet(s) Oral BID 10/26/19 24 Inactive Artificial Tears (PF) 0.1 %-0.3 % drops in a dropperette RxNorm: 544509 Apply 1-2 Drop(s) Both eyes BID as needed 09/28/19 24 Inactive erythromycin 5 mg/gram (0.5 %) eye ointment RxNorm: 486139 Apply 1 Application Both eyes QHS every night at bedtime Instill ~1 cm ribbon into affected eye 09/28/19 24 024 Inactive Artificial Tears (PF) 0.1 %-0.3 % drops in a dropperette RxNorm: 761811 Apply 1-2 Drop(s) Both eyes BID as needed 09/28/19 24 024 Inactive erythromycin 5 mg/gram (0.5 %) eye ointment RxNorm: 148365 Apply 1 Application Both eyes QHS every night at bedtime Instill ~1 cm ribbon into affected eye 09/28/19 24 Inactive acetaminophen 500 mg tablet RxNorm: 222489 (MAX APAP:4GM/24HR) Take 1 Tablet(s) Oral TID as needed for pain 09/24/19 Inactive carvedilol 25 mg tablet RxNorm: 338191 Take 1 Tablet(s) Oral QD 09/08/19 24 No Stop Date Active pregabalin 100 mg capsule RxNorm: 584517 Take 1 Capsule(s) Oral QAM every morning 09/07/19 24 024 Inactive bisacodyl 10 mg rectal suppository RxNorm: 826589 Insert 1 Suppository Rectal QD as needed 07/13/19 24 No Stop Date Active ketoconazole 2 % shampoo RxNorm: 001420 Apply 1 Application Topical UD as directed 07/13/19 No Stop Date Active Ozempic 1 mg/dose (4 mg/3 mL) subcutaneous pen injector RxNorm: 2079820 Inject 1 Milligram(s) Subcutaneous QW once a week 07/13/19 No Stop Date Active Guaifenesin AC 10 mg-100 mg/5 mL oral liquid RxNorm: 811779 Take 10 Milliliter(s) Oral Q4H every four hours as needed 07/13/19 No Stop Date Active hydrocortisone 2.5 % topical cream RxNorm: 294203 Apply 1 Application Topical BID as needed 07/13/19 No Stop Date Active rosuvastatin 40 mg tablet RxNorm: 939872 Take 1 Tablet(s) Oral QPM every evening 07/13/19 024 Inactive ezetimibe 10 mg tablet RxNorm: 145668 Take 1 Tablet(s) Oral QD 07/13/19 24 025 Inactive polyethylene glycol 3350 17 gram/dose oral powder RxNorm: 350780 Take 17 Gram(s) Oral BID as needed mix in 4-8ox water 07/13/19 24 025 Inactive aripiprazole 15 mg tablet RxNorm: 819220 Take 1/2 Tablet(s) Oral QD 07/13/19 24 024 Inactive isosorbide mononitrate ER 60 mg tablet,extended release 24 hr RxNorm: 138254 Take 1 Tablet(s) Oral QD 07/13/19 24 024 Inactive ammonium lactate 12 % topical cream RxNorm: 725469 Apply 1 Application Topical BID 07/13/19 24 025 Inactive rosuvastatin 20 mg sprinkle capsule RxNorm: 2767661 Take 1 Capsule(s) Oral QD 07/13/19 24 025 Inactive Vascepa 1 gram capsule RxNorm: 0453184 Take 2 Capsule(s) Oral BID 07/13/19 24 024 Inactive venlafaxine ER 75 mg capsule,extended release 24 hr RxNorm: 537779 Take 3 Capsule(s) Oral QD 07/13/19 24 024 Inactive Basaglar ZaPen U-100 Insulin 100 unit/mL (3 mL) subcutaneous RxNorm: 3956970 Inject 30U SubQ twice daily 07/07/19 24 024 Inactive Please dispense one month supply. Basaglar KwikPen U-100 Insulin 100 unit/mL (3 mL) subcutaneous RxNorm: 0381129 Inject 30U SubQ twice daily 07/07/19 24 024 Inactive Please dispense one month supply. pregabalin 150 mg capsule RxNorm: 743747 Take 1 Capsule(s) Oral QHS every night at bedtime 07/05/19 24 024 Inactive pregabalin 150 mg capsule RxNorm: 658736 Take 1 Capsule(s) Oral QHS every night at bedtime 07/05/19 24 024 Inactive polyethylene glycol 3350 17 gram/dose oral powder RxNorm: 462724 Take 1 Packet Oral QD as needed (1 packet = 17g) mix with 4-8oz of liquid 06/15/19 24 024 Inactive bisacodyl 10 mg rectal suppository RxNorm: 585850 Insert one suppository per rectum once daily as needed for constipation 06/15/19 24 024 Inactive bisacodyl 10 mg rectal suppository RxNorm: 325795 Insert one suppository per rectum once daily as needed for constipation 06/15/19 24 024 Inactive pregabalin 100 mg capsule RxNorm: 376153 Take 1 Capsule(s) Oral QAM every morning 04/27/20 23 024 Inactive Levemir FlexPen 100 unit/mL (3 mL) solution subcutaneous insulin pen RxNorm: 733933 Inject 30 Unit(s) Subcutaneous BID 04/27/20 23 024 Inactive rosuvastatin 40 mg tablet RxNorm: 453887 Take 1 Tablet(s) Oral QPM every evening 04/16/20 23 024 Inactive D/C rosuvastatin 20mg venlafaxine ER 75 mg capsule,extended release 24 hr RxNorm: 576384 Take 3 Capsule(s) Oral QD 04/14/20 23 023 Inactive pregabalin 100 mg capsule RxNorm: 826230 Take 1 Capsule(s) Oral QAM every morning [...] strip clotrimazole 1 % topical cream RxNorm: 427784 Take apply topically to abdominal folds twice daily for 14 days 03/12/20 23 024 Inactive Ozempic 1 mg/dose (4 mg/3 mL) subcutaneous pen injector RxNorm: 5474344 Inject 1 Milligram(s) Subcutaneous QW once a week 03/11/20 023 Inactive rosuvastatin 20 mg tablet RxNorm: 495039 Take 1 Tablet(s) Oral QD 02/26/20 23 023 Inactive d/c pravastatin 80mg Ozempic 1 mg/dose (4 mg/3 mL) subcutaneous pen injector RxNorm: 1485626 Inject 1 Milligram(s) Subcutaneous QW once a week 02/20/20 23 023 Inactive pregabalin 150 mg capsule RxNorm: 781418 Take 1 Capsule(s) Oral HS at bed time 02/19/20 23 023 Inactive pregabalin 100 mg capsule RxNorm: 047557 Take 1 Capsule(s) Oral QAM every morning 02/18/20 23 023 Inactive venlafaxine ER 75 mg capsule,extended release 24 hr RxNorm: 903746 Take 3 Capsule(s) Oral QD 02/04/20 23 023 Inactive FreeStyle Chema 2 Sensor kit RxNorm: use as directed 02/04/20 23 023 Inactive FreeStyle Chema 2 Sensor kit RxNorm: use as directed 02/04/20 23 024 Inactive fluconazole 150 mg tablet RxNorm: 447711 Take 1 Tablet(s) Oral on day 3 and on day 6 02/03/20 23 024 Inactive venlafaxine ER 150 mg capsule,extended release 24 hr RxNorm: 645189 Take 1 Capsule(s) Oral QD 02/03/20 23 023 Inactive chlorthalidone 25 mg tablet RxNorm: 087181 Take 1 Tablet(s) Oral QAM every morning 02/03/20 23 024 Inactive acetaminophen 500 mg tablet RxNorm: 003071 1 TABLET ORALLY 3 TIMES DAILY (MAX APAP:4GM/24HR) 12/15/19 23 023 Inactive potassium chloride ER 20 mEq tablet,extended release RxNorm: 476292 Take 1 Tablet(s) Oral BID 12/09/19 024 Inactive d/c 20mEq once daily (sent from hospital) clotrimazole 1 % topical cream RxNorm: 902755 apply 1g topically to top of feet and in between toes BID 12/09/19 23 025 Inactive nystatin 100,000 unit/gram topical powder RxNorm: 733318 APPLY TO AFFECTED AREAS TOPICALLY 2 TIMES DAILY 11/21/19 23 023 Inactive Nystop 100,000 unit/gram topical powder RxNorm: 308694 Apply to abd folds, under breasts and L side of groin Topical BID x 14 days, then BID PRN 11/20/19 023 Inactive dx: yeast dermatitis [place] Ultra Strength 4 %-30 %-10 % topical cream RxNorm: 004162 Apply 1 Gram(s) Topical QID PRN to feet and legs for neuropathic pain 11/11/19 024 Inactive clotrimazole 1 % topical cream RxNorm: 672160 Apply 1/2 Gram(s) Topical BID Apply to affected areas of groin, periarea, and abdominal topically 2 times daily 11/10/19 23 023 Inactive hydrocortisone 2.5 % topical cream RxNorm: 277707 Apply 1/2 Gram(s) Topical BID as needed 11/10/19 23 024 Inactive Levemir FlexPen 100 unit/mL (3 mL) solution subcutaneous insulin pen RxNorm: 871603 Inject 30 Unit(s) Subcutaneous BID 10/07/19 23 023 Inactive Humulin R U-500 (Concentrated) Insulin 500 unit/mL subcutaneous soln RxNorm: 237790 Inject 100 Unit(s) Subcutaneous TID 10/07/19 024 Inactive Ozempic 0.25 mg or 0.5 mg (2 mg/3 mL) subcutaneous pen injector RxNorm: 7714494 Inject 1/2 Milligram(s) Subcutaneous QW once a week 10/07/19 024 Inactive aripiprazole 15 mg tablet RxNorm: 630406 1/2 TAB (7.5MG) ORALLY DAILY (DX:MAJOR DEPRESSIVE DISORDER) 09/23/19 023 Inactive Accu-Chek Guide test strips RxNorm: Use 1 Test Strip QID 09/15/19 023 Inactive ok to substitute with any covered alternative test strip Lancets,Thin 28 gauge RxNorm: Use 1 as directed QID 09/15/19 023 Inactive torsemide 20 mg tablet RxNorm: 303498 Take 1 Tablet(s) Oral BID 09/09/19 024 Inactive d/c once daily dosing carvedilol 25 mg tablet RxNorm: 736683 Take 1 Tablet(s) Oral QD 08/25/19 23 024 Inactive pregabalin 150 mg capsule RxNorm: 941567 1 Capsule(s) Oral HS at bed time 08/18/19 023 Inactive pregabalin 100 mg capsule RxNorm: 668458 1 Capsule(s) Oral QAM every morning 08/18/19 023 Inactive carvedilol 25 mg tablet RxNorm: 318193 1 Tablet(s) Oral QD 07/28/19 023 Inactive lisinopril 20 mg tablet RxNorm: 796969 Give 1 Tablet(s) Oral QD 07/28/19 23 023 Inactive Lyrica 150 mg capsule RxNorm: 062002 Take 1 Capsule(s) Oral QHS every night at bedtime 07/19/19 023 Inactive d/c 100mg dose Diflucan 150 mg tablet RxNorm: 948776 Take 1 Tablet(s) Oral QD repeat on day 3 and 6 07/19/19 23 023 Inactive pregabalin 100 mg capsule RxNorm: 501524 Take 1 Capsule(s) Oral QAM every morning 07/19/19 23 023 Inactive gatifloxacin 0.5 % eye drops RxNorm: 561844 Instill 1 Drop(s) as directed TID Instill 1 drop in to affected eye(s) starting 1 day prior to surgery and continue until gone (do not exceed 4 weeks). 07/13/19 23 023 Inactive carvedilol 25 mg tablet RxNorm: 083553 2 Tablet(s) Oral BID 07/13/19 23 023 Inactive Humulin R Regular U-100 Insulin 100 unit/mL injection solution RxNorm: 725981 85 Unit(s) Injection TID 07/13/19 23 023 Inactive ketorolac 0.5 % eye drops RxNorm: 278811 Instill 1 Drop(s) as directed QID Instill 1 drop into affected eye(s) 4 times daily starting 1 day prior to surgery and continue until gone (do not exceed 4 weeks). 07/13/19 023 Inactive Diflucan 150 mg tablet RxNorm: 264128 Take 1 Tablet(s) Oral QD repeat on day 3 and 6 06/30/19 23 023 Inactive Accu-Chek Guide test strips RxNorm: Use 1 Test Strip QID Use 1 test strip to monitor blood glucose 4 times daily and as needed. Dx:E11.42. 06/23/19 23 023 Inactive ok to substitute with any covered alternative test strip dextromethorphan-gu aifenesin 10 mg-100 mg/5 mL oral liquid RxNorm: 923494 Take 10 Milliliter(s) Oral every 4 hours as needed for cough 06/19/19 23 023 Inactive dextromethorphan-gu aifenesin 10 mg-100 mg/5 mL oral liquid RxNorm: 882141 Take 10 Milliliter(s) Oral every 4 hours as needed for cough 06/19/19 23 023 Inactive Lyrica 150 mg capsule RxNorm: 672185 Take 1 Capsule(s) Oral QHS every night at bedtime 06/18/19 23 023 Inactive d/c 100mg dose aripiprazole 15 mg tablet RxNorm: 002056 /2 TAB (7.5MG) ORALLY DAILY (DX:MAJOR DEPRESSIVE DISORDER) 06/05/19 023 Inactive pregabalin 100 mg capsule RxNorm: 475929 1 Capsule(s) Oral QAM every morning 06/02/19 023 Inactive Banophen 50 mg capsule RxNorm: 2457094 Take 1 Capsule(s) Oral Q6H every 6 hours as needed 05/19/19 23 No Stop Date Active Novolog Flexpen U-100 Insulin aspart 100 unit/mL (3 mL) subcutaneous RxNorm: 5295716 Inject 10 Unit(s) Subcutaneous QHS every night at bedtime with nighttime snack 04/08/20 022 Inactive Novolog Flexpen U-100 Insulin aspart 100 unit/mL (3 mL) subcutaneous RxNorm: 4393181 Inject 42 Unit(s) Subcutaneous TID in addition to sliding scale 04/08/20 022 Inactive d/c 36u albuterol sulfate HFA 90 mcg/actuation aerosol inhaler RxNorm: 9071884 Take 2 Puff(s) Inhalation Q4H every four hours as needed as needed for SOB, cough, or wheezing 04/07/20 030 Active Banophen 50 mg capsule RxNorm: 3590324 Take 1 Capsule(s) Oral Q6H every 6 hours as needed 04/06/20 023 Inactive diphenhydramine 50 mg tablet RxNorm: 7846565 Take 1 Tablet(s) Oral Q6H every 6 hours as needed 04/06/20 22 022 Inactive diphenhydramine 50 mg tablet RxNorm: 9537977 1 Tablet(s) Oral Q6H every 6 hours as needed 04/06/20 22 022 Inactive Abilify 15 mg tablet RxNorm: 731216 1/2 Tablet(s) Oral QD 03/10/20 22 023 Inactive Shingrix (PF) 50 mcg/0.5 mL intramuscular suspension, kit RxNorm: 6782034 Administer 1/2 Milliliter(s) Intramuscular QD one time shingrix step 2 ( step 1 given 11/04/21) WITH needle - Nursing please administer upon arrival and once administered post a bridge message with date of administration, ditch repairer, expiration date, and lot# so we can update [facility] 02/18/20 22 022 Inactive dispense with needle Shingrix (PF) 50 mcg/0.5 mL intramuscular suspension, kit RxNorm: 2342052 Administer 1/2 Milliliter(s) Intramuscular QD one time shingrix step 2 ( step 1 given 11/04/21) WITH needle - Nursing please administer upon arrival and once administered post a bridge message with date of administration, ditch repairer, expiration date, and lot# so we can update [facility] 02/18/20 22 022 Inactive dispense with needle Lyrica 100 mg capsule RxNorm: 997687 Take 1 Capsule(s) Oral QAM every morning 01/08/20 22 022 Inactive d/c 50mg dose acetaminophen 500 mg tablet RxNorm: 636164 Take 1 Tablet(s) Oral TID 01/08/20 22 022 Inactive d/c PRN order Lyrica 150 mg capsule RxNorm: 488257 Take 1 Capsule(s) Oral QHS every night at bedtime 01/08/20 22 023 Inactive d/c 100mg dose polyethylene glycol 3350 17 gram/dose oral powder RxNorm: 814198 Take 17=1 capful Gram(s) Oral QD mix with 4-8oz of liquid 01/08/20 22 025 Inactive take this in addition to BID prn order Abilify 5 mg tablet RxNorm: 270775 Take 1 Tablet(s) Oral QD take 1 tab po QD #30 refill 5 dx: MDD 12/12/19 22 022 Inactive Abilify 5 mg tablet RxNorm: 927113 Take 1 Tablet(s) Oral QD take 1 tab po QD #30 refill 5 dx: MDD 12/12/19 22 022 Inactive Novolog Flexpen U-100 Insulin aspart 100 unit/mL (3 mL) subcutaneous RxNorm: 6515946 Inject 42 Unit(s) Subcutaneous TID in addition to sliding scale 12/10/19 22 022 Inactive d/c 36u chlorthalidone 25 mg tablet RxNorm: 420688 Take 1 Tablet(s) Oral QAM every morning 12/10/19 22 023 Inactive pregabalin 50 mg capsule RxNorm: 280391 Take 1 Capsule(s) Oral QAM every morning 11/12/19 22 022 Inactive tetanus-diphtheria toxoids-Td 2 Lf unit-2 Lf unit/0.5 mL IM suspension RxNorm: 139 Take 0.5 Miscellaneous Intramuscular 11/12/19 22 022 Inactive need tdap - nursing to administer upon arrival pregabalin 50 mg capsule RxNorm: 406114 Take 1 Capsule(s) Oral QAM every morning 10/16/19 22 022 Inactive pregabalin 50 mg capsule RxNorm: 253260 Take 1 Capsule(s) Oral QAM every morning 10/16/19 22 022 Inactive pregabalin 50 mg capsule RxNorm: 236858 1 Capsule(s) Oral QAM every morning 10/15/19 22 022 Inactive Shingrix (PF) 50 mcg/0.5 mL intramuscular suspension, kit RxNorm: 8863771 Administer 1/2 Milliliter(s) Intramuscular one time Nursing please administer upon arrival and once administered post a bridge message with date of administration, ditch repairer, expiration date, and lot# so we can update [facility]. 10/09/19 22 022 Inactive shingrix step 1 Shingrix (PF) 50 mcg/0.5 mL intramuscular suspension, kit RxNorm: 1817493 Administer 1/2 Milliliter(s) Intramuscular one time Nursing please administer upon arrival and once administered post a bridge message with date of administration, ditch repairer, expiration date, and lot# so we [...] aspart 100 unit/mL (3 mL) subcutaneous RxNorm: 0846003 Inject 10 Unit(s) Subcutaneous QHS every night at bedtime with nighttime snack 10/08/19 22 022 Inactive Shingrix (PF) 50 mcg/0.5 mL intramuscular suspension, kit RxNorm: 8212496 ADMINISTER 2-DOSE SERIES PER CDC GUIDELINES 10/08/19 22 Active Shingrix (PF) 50 mcg/0.5 mL intramuscular suspension, kit RxNorm: 5551503 ADMINISTER 2-DOSE SERIES PER CDC GUIDELINES 10/08/19 22 Inactive Novolog Flexpen U-100 Insulin aspart 100 unit/mL (3 mL) subcutaneous RxNorm: 2909352 Inject 36 Unit(s) Subcutaneous TID in addition to sliding scale 10/08/19 Inactive cholecalciferol (vitamin D3) 1,250 mcg (50,000 unit) capsule RxNorm: 312008 Take 1 Capsule(s) Oral QW once a week 10/08/19 024 Inactive Novofine Autocover 30 gauge x 1/3 needle RxNorm: Use 1 Miscellaneous UD as directed Use 1 needle as directed to administer insulin 5 times a day Dx:E11.42. 10/03/19 22 022 Inactive ok to substitute with any covered alternative pen needle benzoyl peroxide 10 % topical cleanser RxNorm: 884406 Apply 1 Application Topical QD apply to face, wash rinse and dry once daily (may change to QOD if drying) 08/19/19 22 022 Inactive (%covered by insurance) #60ml refill 11 dx: acne benzoyl peroxide 10 % topical cleanser RxNorm: 789235 Apply 1 Application Topical QD apply to face, wash rinse and dry once daily (may change to QOD if drying) 08/19/19 22 022 Inactive (%covered by insurance) #60ml refill 11 dx: acne benzoyl peroxide 10 % topical cleanser RxNorm: 284438 Apply 1 Application Topical QD apply to face, wash rinse and dry once daily (may change to QOD if drying) 08/19/19 22 022 Inactive (%covered by insurance) #60ml refill 11 dx: acne Lyrica 50 mg capsule RxNorm: 749359 Take 1 Capsule(s) Oral QAM every morning Take 1 capsule by mouth once daily 08/19/19 22 022 Inactive benzoyl peroxide 10 % topical cleanser RxNorm: 642168 Apply 1 Application Topical QD apply to face, wash rinse and dry once daily (may change to QOD if drying) 08/19/19 22 022 Inactive (%covered by insurance) #60ml refill 11 dx: acne Lyrica 100 mg capsule RxNorm: 488935 Take 1 Capsule(s) Oral QHS every night at bedtime Take 1 capsule by mouth once daily at bedtime 08/19/19 22 022 Inactive Lyrica 100 mg capsule RxNorm: 492177 Take 1 Capsule(s) Oral QHS every night at bedtime Take 1 capsule by mouth once daily at bedtime 08/16/19 22 022 Inactive Lyrica 50 mg capsule RxNorm: 536453 Take 1 Capsule(s) Oral QAM every morning Take 1 capsule by mouth once daily 08/16/19 22 022 Inactive Levemir FlexTouch U-100 Insulin 100 unit/mL (3 mL) subcutaneous pen RxNorm: 240108 Inject 86 Unit(s) Subcutaneous BID 08/05/19 22 022 Inactive d/c 83units BID Lyrica 100 mg capsule RxNorm: 076785 Take 1 Capsule(s) Oral QHS every night at bedtime Take 1 capsule by mouth once daily at bedtime 07/14/19 22 022 Inactive Lyrica 50 mg capsule RxNorm: 968111 Take 1 Capsule(s) Oral QAM every morning Take 1 capsule by mouth once daily 07/14/19 22 022 Inactive Levemir FlexTouch U-100 Insulin 100 unit/mL (3 mL) subcutaneous pen RxNorm: 063931 Inject 83 Unit(s) Subcutaneous BID 07/08/19 22 [...] test strip hydralazine 50 mg tablet RxNorm: 124167 Take 1 Tablet(s) Oral QID 05/05/20 21 022 Inactive venlafaxine ER 225 mg tablet,extended release 24 hr RxNorm: 373994 Take 1 Tablet(s) Oral QD 05/05/20 21 021 Inactive venlafaxine ER 225 mg tablet,extended release 24 hr RxNorm: 690082 Take 1 Tablet(s) Oral QD 05/05/20 21 022 Inactive isosorbide mononitrate ER 30 mg tablet,extended release 24 hr RxNorm: 231956 Take 1 Tablet(s) Oral QD 05/05/20 024 Inactive hydralazine 50 mg tablet RxNorm: 880915 Take 1 Tablet(s) Oral QID 05/05/20 21 021 Inactive aspirin 81 mg tablet,delayed release RxNorm: 671585 Take 1 Tablet(s) Oral QD 03/31/20 022 Inactive Vitamin D2 1,250 mcg (50,000 unit) capsule RxNorm: 9389042 Take 1 Capsule(s) Oral QW once a week x 12 weeks 03/31/20 022 Inactive Vitamin D2 1,250 mcg (50,000 unit) capsule RxNorm: 0477510 Take 1 Capsule(s) Oral QW once a week 03/31/20 021 Inactive Zetia 10 mg tablet RxNorm: 501937 Take 1 Tablet(s) Oral QD 03/31/20 024 Inactive Zetia 10 mg tablet RxNorm: 657016 Take 1 Tablet(s) Oral QD 03/31/20 021 Inactive hydralazine 25 mg tablet RxNorm: 592476 Take 1 Tablet(s) Oral QID 03/31/20 21 021 Inactive hydralazine 25 mg tablet RxNorm: 804226 Take 1 Tablet(s) Oral QID 03/31/20 021 Inactive hydralazine 10 mg tablet RxNorm: 651959 Take 1 Tablet(s) Oral QID 03/03/20 021 Inactive cephalexin 500 mg tablet RxNorm: 050453 Take 1 Tablet(s) Oral QID 02/27/20 21 021 Inactive cephalexin 500 mg tablet RxNorm: 002659 Take 1 Tablet(s) Oral QID 02/27/20 21 021 Inactive lisinopril 40 mg tablet RxNorm: 824575 Take 1 Tablet(s) Oral QD 02/11/20 21 023 Inactive Eliquis 5 mg tablet RxNorm: 6046312 Take 1 Tablet(s) Oral BID 01/05/20 21 02/03/2 025 Inactive Eliquis 5 mg tablet RxNorm: 9652844 Take 2 Tablet(s) Oral QD 01/01/20 21 021 Inactive Lyrica 50 mg capsule RxNorm: 264257 Take 1 Capsule(s) Oral QAM every morning 12/24/19 21 021 Inactive Lyrica 100 mg capsule RxNorm: 724118 Take 1 Capsule(s) Oral QHS every night at bedtime 12/24/19 21 021 Inactive clotrimazole 1 % topical cream RxNorm: 116655 Apply to right foot and toes Topical BID 12/04/19 21 023 Inactive metoprolol succinate ER 200 mg tablet,extended release 24 hr RxNorm: 752448 Take 1 Tablet(s) Oral QD 12/04/19 21 023 Inactive ciprofloxacin 500 mg tablet RxNorm: 818144 Take 1 Tablet(s) Oral QD 11/30/19 21 021 Inactive DX ofloxacin otic drops Accu-Chek Guide test strips RxNorm: USE 1 TO CHECK GLUCOSE 4 TIMES DAILY AND NEEDED 11/15/19 21 023 Inactive Blood Glucose Test strips RxNorm: Use 1 Test Strip QID at PRN 11/05/19 21 023 Inactive E11.42 lisinopril 30 mg tablet RxNorm: 552063 Take 1 Tablet(s) Oral QD 10/30/19 021 Inactive lisinopril 20 mg tablet RxNorm: 783161 Take 1 Tablet(s) Oral QD 10/23/19 21 021 Inactive lisinopril 20 mg tablet RxNorm: 437286 Take 1 Tablet(s) Oral QD 10/23/19 21 021 Inactive lisinopril 10 mg tablet RxNorm: 604636 Take 1 Tablet(s) Oral QD 10/02/19 21 021 Inactive icosapent ethyl 1 gram capsule RxNorm: 7982272 Take 2 Capsule(s) (2 gm) Oral BID with meals 09/12/19 21 024 Inactive Okay to dispense one 2gm tab if you have that available. icosapent ethyl 1 gram capsule RxNorm: 1232134 Take 2 Capsule(s) Oral BID 09/12/19 21 021 Inactive Okay to dispense one 2gm tab if you have that available. amlodipine 10 mg tablet RxNorm: 940481 Take 1 Tablet(s) Oral QD 09/04/19 21 021 Inactive aspirin 81 mg tablet,delayed release RxNorm: 279423 Take 1 Tablet(s) Oral QD 09/04/19 21 021 Inactive Levemir FlexTouch U-100 Insulin 100 unit/mL (3 mL) subcutaneous pen RxNorm: 996313 Inject 150 Unit(s) Subcutaneous BID 09/04/19 21 022 Inactive venlafaxine ER 150 mg tablet,extended release 24 hr RxNorm: 244862 Take 1 Tablet(s) Oral QD 09/04/19 21 021 Inactive clotrimazole-betame thasone 1 %-0.05 % topical cream RxNorm: 831548 Apply to rash on red area on left abdomen/chest Topical BID 08/10/19 21 021 Inactive amlodipine 5 mg tablet RxNorm: 293554 Take 1 Tablet(s) Oral QD 07/31/19 21 021 Inactive cephalexin 500 mg tablet RxNorm: 797370 Take 1 Tablet(s) Oral BID BID - Twice Daily 07/31/19 21 021 Inactive Start 08/01/20 pantoprazole 40 mg tablet,delayed release RxNorm: 931104 Take 1 Tablet(s) Oral QAM every morning 07/08/19 21 025 Inactive clopidogrel 75 mg tablet RxNorm: 738742 Take 1 Tablet(s) Oral QD 07/08/19 21 021 Inactive Blood Glucose Test strips RxNorm: Use 1 Test Strip QID at PRN 07/08/19 21 021 Inactive E11.42 senna 8.6 mg tablet RxNorm: 257047 Take 1 Tablet(s) Oral QD 07/08/19 21 025 Inactive Novolog Flexpen U-100 Insulin aspart 100 unit/mL (3 mL) subcutaneous RxNorm: 6266237 Administer per sliding scale Milliliter(s) Subcutaneous TID 151-200: 10 u; 201-250: 20 u; 251-300: 30 u; 301-350: 40 u; 351-400: 50 u. 07/08/19 21 022 Inactive lisinopril 5 mg tablet RxNorm: 711058 Take 1 Tablet(s) Oral QD 07/08/19 021 Inactive Novolog Flexpen U-100 Insulin aspart 100 unit/mL (3 mL) subcutaneous RxNorm: 1167375 Inject 85 Unit(s) Subcutaneous TID 07/08/19 022 Inactive pravastatin 80 mg tablet RxNorm: 958330 Take 1 Tablet(s) Oral QHS every night at bedtime 07/08/19 023 Inactive clotrimazole 1 % topical cream RxNorm: 630708 Apply to bilateral groin areas Topical BID 07/08/19 022 Inactive metoprolol succinate ER 200 mg tablet,extended release 24 hr RxNorm: 006444 Take 1 Tablet(s) Oral QD 07/08/19 021 Inactive Vitamin D3 25 mcg (1,000 unit) tablet RxNorm: 298225 Take 1 Tablet(s) Oral QD 07/08/19 021 Inactive isosorbide dinitrate 30 mg tablet RxNorm: 096110 Take 1 Tablet(s) Oral QD 07/08/19 021 Inactive carbamazepine 200 mg tablet RxNorm: 960584 Take 1 Tablet(s) Oral BID 07/08/19 025 Inactive Levemir FlexTouch U-100 Insulin 100 unit/mL (3 mL) subcutaneous pen RxNorm: 820004 Inject 140 Unit(s) Subcutaneous BID 07/08/19 021 Inactive torsemide 20 mg tablet RxNorm: 733309 Take 1 Tablet(s) Oral QD 07/08/19 023 Inactive venlafaxine 75 mg tablet RxNorm: 633181 Take 1 Tablet(s) Oral QD 07/08/19 021 Inactive acetaminophen 500 mg tablet RxNorm: 327387 Take 1 Tablet(s) Oral TID as needed for headache 06/18/19 021 Inactive acetaminophen 500 mg tablet RxNorm: 006708 Take 1 Tablet(s) Oral TID as needed for headache 06/18/19 21 021 Inactive Lyrica 100 mg capsule RxNorm: 521443 Take 1 Capsule(s) Oral QHS every night at bedtime 06/11/19 21 021 Inactive Lyrica 50 mg capsule RxNorm: 715158 Take 1 Capsule(s) Oral QAM every morning 06/10/19 21 021 Inactive hydrocortisone 2.5 % topical cream RxNorm: 926919 Apply to bilateral groin creases Topical BID 05/15/20 20 021 Inactive clotrimazole 1 % topical cream RxNorm: 910485 Apply to bilateral groin areas Topical BID 05/15/20 20 021 Inactive Lyrica 50 mg capsule RxNorm: 050557 Take 1 Capsule(s) Oral QAM every morning 05/14/20 20 020 Inactive Lyrica 100 mg capsule RxNorm: 043856 Take 1 Capsule(s) Oral QHS every night [...] Inactive Nystop 100,000 unit/gram topical powder RxNorm: 823953 Apply to abd folds, under breasts and L side of groin Topical BID x 14 days, then BID PRN 04/08/20 20 11/23/2 020 Inactive dx: yeast dermatitis Lyrica 100 mg capsule RxNorm: 151361 Take 1 Capsule(s) Oral QHS every night at bedtime 03/13/20 20 Inactive Lyrica 50 mg capsule RxNorm: 993477 Take 1 Capsule(s) Oral QAM every morning 03/13/20 20 Inactive ketoconazole 2 % shampoo RxNorm: 024842 Apply Topical two times a week with showers 03/11/20 Inactive cholecalciferol (vitamin D3) 50 mcg (2,000 unit) tablet RxNorm: 226238 Take 1 Tablet(s) Oral QD 03/11/20 20 Inactive Zetia 10 mg tablet RxNorm: 332115 Take 1 Tablet(s) Oral QD 03/07/20 20 Inactive Zetia 10 mg tablet RxNorm: 339443 Take 1 Tablet(s) Oral QD 03/07/20 20 Inactive Lyrica 50 mg capsule RxNorm: 013116 Take 1 Capsule(s) Oral QAM every morning 02/15/20 20 Inactive Lyrica 100 mg capsule RxNorm: 361075 Take 1 Capsule(s) Oral QHS every night at bedtime 02/15/20 Inactive Lyrica 100 mg capsule RxNorm: 711504 Take 1 Capsule(s) Oral QHS every night at bedtime 02/15/20 20 Inactive Lyrica 50 mg capsule RxNorm: 022551 Take 1 Capsule(s) Oral QAM every morning 02/15/20 20 Inactive venlafaxine ER 75 mg capsule,extended release 24 hr RxNorm: 763166 Take 3 Capsule(s) Oral QD 06/12/19 023 Inactive polyethylene glycol 3350 17 gram/dose oral powder RxNorm: 668202 Take 17=1 capful Gram(s) Oral BID as needed mix with 4-8oz of liquid 06/12/19 22 024 Inactive icosapent ethyl 1 gram capsule RxNorm: 2191913 Take 2 Capsule(s) (2 gm) Oral BID with meals 10/07/19 23 023 Inactive Okay to dispense one 2gm tab if you have that available. Levemir FlexTouch U-100 Insulin 100 unit/mL (3 mL) subcutaneous pen RxNorm: 679229 Inject 80 Unit(s) Subcutaneous BID 07/14/19 23 023 Inactive metoprolol succinate ER 200 mg tablet,extended release 24 hr RxNorm: 304167 Take 1 Tablet(s) Oral QD 08/12/19 025 Inactive loperamide 2 mg capsule RxNorm: 749354 Take 1 Capsule(s) Oral QID as needed 09/06/19 025 Inactive hydralazine 50 mg tablet RxNorm: 693016 Take 1 Tablet(s) Oral QID 08/12/19 025 Inactive Soft Touch Lancets RxNorm: miscellaneous 03/04/20 24 025 Inactive Novolog Flexpen U-100 Insulin aspart 100 unit/mL (3 mL) subcutaneous RxNorm: 0277306 Insert 30 Unit(s) Subcutaneous TID with meals [...] Planned Activity Notes Codes Status Date Referral: [facility] Rad[id number] Osvxcwuaa95/06/2025Patient Education: Patient Medication XrrptizUqbdzqvsd36/27/2025ppointment: Harrison Munson WPtel: [address] [place]/08/08/2024ppointment: Harrison Munson WPtel: [address] [place]F/07/11/2024Referral: [facility]/Endocrinology WPtel: 7 [facility] 3 [id number] USReferralNo Records Bpcwsgbk83/24/2025ppointment: Harrison Munson WPtel: [address] [facility]02/08/2024ppointment: Harrison Munson WPtel: [address] USF/U001/11/2024ppointment: Sandra Clark WPtel: [address] [facility] [address] [id number] [facility] Psych Follow Up12/09/2022ppointment: Tapan Shirley WPtel: [address] [facility] [address] [id number] USTCM10/26/2022Referral: [facility] WPtel: [address] , [address] [id number] USReferralRecords Amvjruar74/08/2023ppointment: Tapan Shirley WPtel: [address] [facility] 300 [id number] [place]/U008/11/2022ppointment: Tapan Shirley WPtel: [address] [facility] 300 [id number] USF/U007/14/2022ppointment: Tapan Shirley WPtel: [address] [facility] 300 [id number] [place]/U02Referral: [facility] W[facility]el: [address] [id number] HPIpbvwevdYyearoucj57/12/2022Referral: General CardiologyReferralCompleted 1Referral: General PsychologistReferralClosedReferral: General PsychiatristReferralPatient/Family [...] Sister Jyotsna involved in his care cell# [phone] Guardian: Giulia (tapan met in person 09/01/21), now has Lexii (same group as giulia)AWV 9.. Lab Schedule: Mar-*September (CBC with diff, CMP, A1c) March: (CBC, [...] appointment 05.26.2024 with Jessa Webster MD at [facility]. Start Pioglitazone 15 mg QD. Stop Basaglar insulin. Increase Ozempic 2 mg once wkly. Continue Humalin R U-500 100 units with meals TID. FOLLOW UP 2 MONTHS. If BG >400 add 50 units to next scheduled dose of Humalin R U 500 insulin 06/12/2024
--- OUTSIDE RECORDS SUMMARY | 2024-10-19 18:08 | XMS_ITS | CCD ---
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 Film Inspector Name Role Phone Harrison Durham Primary Care Provider Leona vailable Unavailable Chronic Care Management Unavaila ble Summary Purpose DataExchange Insurance Providers Payer name Policy type / Coverage type Covered republican ID Effective Begin Date Effective End Date [place] B [id number] Unknown Unknown [place] [id number] Unknown Unknown Family history Sister Brittany Suggs [...] on file 07/11/[address]: [id number] Never smoker 01/16 Sexually Active? Unknown No [...] Single 10/07/2021 Living arrangements Unknown Alf 09/03/[address]: [id number] No Alcohol Consum ption 09/02/2020 Allergies, Adverse Reactions, Alerts Substance Reaction Codes Entered Date Inactivated Date Status * NO KNOWN FOOD ALLERGIES Gdrhnnh1007/13/2023No Inactive DateActiveLISINOPRILRxNorm: 033062002/12/2020No Inactive DateActiveMetformin LBtQvstbiy36/28/2020No Inactive DateActive* NO KNOWN ENVIRONMENTAL ZFPDFBWHJGjwqdbz21/27/2024No Inactive DateActive Problems Condition Codes Effective Dates [...] planning - to document end of life dobnejdjgrmWjnnpyd84/24/2024ctiveAmputated toe of right footICD-10: S98.131A ICD-9: 895.ctiveAnnual [...] E55.9 ICD-9: 268.909ctiveCallus of heelICD-10: L84 ICD-9: 87084/esolvedGout due to renal impairmentICD-10: M10.30 ICD-9: 274.1005esolvedHyperhidrosis of palmsICD-10: L74.512 ICD-9: 705.21010/12/2023esolvedHyperlipidemia, unspecifiedICD-10: E78.5 ICD-9: 272.405/esolvedOther long-term (current) drug therapyICD-10: Z79.899 ICD-9: V58.6905/esolvedPain of [...] tagICD-10: L91.8 ICD-9: 701.904esolvedCoronary artery disease involving [place] coronary artery of [place] heart, angina presence unspecifiedICD-10: I25.10 ICD-9: 414.0102/4ActiveInappropriate sexual behaviorICD-10: Z72.89 ICD-9: 312.8910/ctivePre-op evaluationICD-10: Z01.818 ICD-9: V72.8403/ctiveSecondary hypertensionICD-10: I15.9 ICD-9: 405.9903/ctiveDepressionICD-10: F32.9 ICD-9: 095002ResolvedDVT (deep venous thrombosis)ICD-10: I82.409 ICD-9: 453.4009/2ResolvedEncounter for immunizationICD-10: Z23 ICD-9: V03.8909/2ResolvedLong term (current) use of insulinICD-10: Z79.4 2ResolvedMuscular painICD-10: M79.10 ICD-9: 729.109esolvedHypertension associated with diabetesICD-10: E11.59 ICD-9: 250.8008/2ResolvedContact with and (suspected) exposure to covid-19 ICD-10: Z20.822 ICD-9: V01.7908/1ResolvedOther infective acute otitis externa of left ear ICD-10: H60.392 ICD-9: 380.1008esolvedScrotal skin lesionICD-10: N50.9 ICD-9: 608.908/1ResolvedAnemia due to stage 3b chronic kidney diseaseICD- 10: N18.32 ICD-9: 285.21051ResolvedChronic kidney disease, stage 3 unspecifiedICD- 10: N18.3004esolvedContact with and (suspected) exposure to other viral communicable diseasesICD-10: Z20.828 ICD-9: V01.79029410AjddyeceRoyzucyeMqpkjoi08/28/2020ActiveDiabetes mellitus Type 8Ovhbetj42/28/2020ActiveAnemia in chronic kidney diseaseICD-10: D63.1 02/12/2020ResolvedHyperlipidemia, unspecifiedICD-10: E78.509Resolved Medications Medication Codes Instructions Start Date Stop Date Status Fill Instructions Accu-Chek Guide test strips RxNorm: Use 1 Test Strip TID to test blood glucose, Dx: 08/02/19 25 No Stop Date Active ok to substitute with any covered alternative test strip Lancets,Thin 28 gauge RxNorm: Use 1 as directed TID lancet, Dx: 08/02/19 25 No Stop Date Active Humulin R U-500 (Concentrated) Insulin 500 unit/mL subcutaneous soln RxNorm: 170012 Inject 100 Unit(s) Subcutaneous AC before meals Three times daily before meals. 07/24/19 25 025 Inactive ammonium lactate 12 % topical cream RxNorm: 995464 Apply 1 Application Topical BID 07/20/19 25 No Stop Date Active senna 8.6 mg tablet RxNorm: 548307 Take 1 Tablet(s) Oral QD 07/18/19 25 025 Inactive ezetimibe 10 mg tablet RxNorm: 962894 Take 1 Tablet(s) Oral QD 07/18/19 25 No Stop Date Active metoprolol succinate ER 200 mg tablet,extended release 24 hr RxNorm: 042447 Take 1 Tablet(s) Oral QD 06/19/19 25 No Stop Date Active pantoprazole 40 mg tablet,delayed release RxNorm: 795923 Take 1 Tablet(s) Oral QAM every morning 06/19/19 25 No Stop Date Active hydralazine 50 mg tablet RxNorm: 557283 Take 1 Tablet(s) Oral QID 06/19/19 25 No Stop Date Active carbamazepine 200 mg tablet RxNorm: 485994 Take 1 Tablet(s) Oral BID 06/19/19 25 No Stop Date Active amlodipine 10 mg tablet RxNorm: 987134 Take 1 Tablet(s) Oral QD 06/19/19 25 No Stop Date Active Eliquis 5 mg tablet RxNorm: 1755607 Take 1 Tablet(s) Oral BID 06/19/19 25 No Stop Date Active pen needle, diabetic 30 gauge x 3/16 RxNorm: Use 1 6 times per day w/insulin 06/14/19 25 026 Active pen needle, diabetic 30 gauge x 3/16 RxNorm: Use 1 needle 6 times per day w/insulin 06/14/19 25 025 Inactive nystatin 100,000 unit/gram topical powder RxNorm: 039295 Apply 1 Application Topical BID as needed abdominal/breast /groin folds 05/24/19 25 026 Active pregabalin 100 mg capsule RxNorm: 588639 Take 1 Capsule(s) Oral QAM every morning 01/11/03 24 Inactive nystatin 100,000 unit/gram topical powder RxNorm: 079824 Apply 1 Application Topical BID as needed abdominal/breast /groin folds 04/11/20 Inactive chlorthalidone 25 mg tablet RxNorm: 203832 Take 1 Tablet(s) Oral QAM every morning 04/06/20 No Stop Date Active pregabalin 150 mg capsule RxNorm: 108610 Take 1 Capsule(s) Oral QHS every night at bedtime 03/31/20 024 Inactive Vascepa 1 gram capsule RxNorm: 5787217 Take 2 Capsule(s) Oral BID 03/30/20 Active rosuvastatin 40 mg tablet RxNorm: 579013 1 TAB ORALLY EVERY EVENING (DX:CORONARY ARTERY DISEASE) 03/28/20 No Stop Date Active venlafaxine ER 75 mg capsule,extended release 24 hr RxNorm: 632231 3 CAPS (225MG) ORALLY DAILY (DX: MOOD DISORDER) 03/28/20 No Stop Date Active pregabalin 100 mg capsule RxNorm: 581422 Take 1 Capsule(s) Oral QAM every morning 03/20/20 Inactive cholecalciferol (vitamin D3) 1,250 mcg (50,000 unit) capsule RxNorm: 926360 Take 1 Capsule(s) Oral QW once a week 03/15/20 Active Lancets,Thin 28 gauge RxNorm: Use 1 as directed TID lancet 03/08/20 024 Inactive Lancets,Thin 28 gauge RxNorm: Use [...] Test Strip TID to test Blood glucose 10/ Inactive ok to substitute with any covered alternative test strip Accu-Chek Guide test strips RxNorm: Use 1 Test Strip TID to test BS 03/08/20 Inactive ok to substitute with any covered alternative test strip Basaglar ValorieikPen U-100 Insulin 100 unit/mL (3 mL) subcutaneous RxNorm: 4371648 Inject 40 Unit(s) Subcutaneous BID 03/07/20 025 Inactive Please dispense one month supply. Humulin R U-500 (Concentrated) Insulin 500 unit/mL subcutaneous soln RxNorm: 443076 Inject 100 Unit(s) Subcutaneous AC before meals [...] PRN) to be use with new Accu [place] meter 03/04/20 Inactive ok to substitute with any covered alternative test strip FreeStyle Chema 2 Sensor kit RxNorm: Use UD as directed 03/02/20 Inactive Pen Needle 30 gauge x 516 RxNorm: Pen(s) Use 1 needle as directed TID 03/02/20 Inactive nystatin 100,000 unit/gram topical powder RxNorm: 902682 Apply 1 Application Topical BID as needed [...] (Concentrated) Insulin 500 unit/mL subcutaneous soln RxNorm: 123907 Inject 100 Unit(s) Subcutaneous TID 02/17/20 24 024 Inactive Humulin R U-500 (Concentrated) Insulin 500 unit/mL subcutaneous soln RxNorm: 674528 Inject 100 Unit(s) Subcutaneous TID 02/10/20 24 024 Inactive Basaglar KwikPen U-100 Insulin 100 unit/mL (3 mL) subcutaneous RxNorm: 8418033 Inject 30 Unit(s) Subcutaneous BID 02/10/20 24 024 Inactive Please dispense one month supply. pregabalin 100 mg capsule RxNorm: 442393 Take 1 Capsule(s) Oral QAM every morning 02/07/20 24 024 Inactive isosorbide mononitrate ER 60 mg tablet,extended release 24 hr RxNorm: 076879 Take 1 Tablet(s) Oral QD 02/01/20 24 025 Active aripiprazole 15 mg tablet RxNorm: 983620 Take 1/2 Tablet(s) Oral QD 02/01/20 24 025 Active torsemide 20 mg tablet RxNorm: 319409 1 TAB ORALLY DAILY (DX: EDEMA) 01/27/20 No Stop Date Active potassium chloride ER 20 mEq tablet,extended release(part/cryst) RxNorm: 8716702 2 TABS (40MEQ) ORALLY TWICE DAILY (DX: HYPOKALEMIA) 01/27/20 24 025 Inactive cephalexin 500 mg capsule RxNorm: 549281 Take 1 Capsule(s) Oral QID 12/17/19 24 024 Inactive cephalexin 500 mg capsule RxNorm: 163324 Take 1 Capsule(s) Oral QID 12/17/19 24 024 Inactive acetaminophen 500 mg tablet RxNorm: 596051 (MAX APAP:4GM/24HR) Take 1 Tablet(s) Oral TID as needed for pain 12/10/19 24 024 Inactive torsemide 20 mg tablet RxNorm: 19821114 [...] %-0.3 % drops in a dropperette RxNorm: 983924 Apply 1-2 Drop(s) Both eyes BID as needed 09/28/19 Inactive erythromycin 5 mg/gram (0.5 %) eye ointment RxNorm: 420189 Apply 1 Application Both eyes QHS every night at bedtime Instill ~1 cm ribbon into affected eye 09/28/19 24 Inactive Artificial Tears (PF) 0.1 %-0.3 % drops in a dropperette RxNorm: 433160 Apply 1-2 Drop(s) Both eyes BID as needed 09/28/19 24 024 Inactive erythromycin 5 mg/gram (0.5 %) eye ointment RxNorm: 057343 Apply 1 Application Both eyes QHS every night at bedtime Instill ~1 cm ribbon into affected eye 09/28/19 24 Inactive acetaminophen 500 mg tablet RxNorm: 671725 (MAX APAP:4GM/24HR) Take 1 Tablet(s) Oral TID as needed for pain 09/24/19 024 Inactive carvedilol 25 mg tablet RxNorm: 224550 Take 1 Tablet(s) Oral QD 09/08/19 24 No Stop Date Active pregabalin 100 mg capsule RxNorm: 000070 Take 1 Capsule(s) Oral QAM every morning 09/07/19 24 024 Inactive bisacodyl 10 mg rectal suppository RxNorm: 084592 Insert 1 Suppository Rectal QD as needed 07/13/19 24 No Stop Date Active polyethylene glycol 3350 17 gram/dose oral powder RxNorm: 049052 Take 17 Gram(s) Oral BID as needed mix in 4-8ox water 07/13/19 24 025 Inactive ketoconazole 2 % shampoo RxNorm: 900932 Apply 1 Application Topical UD as directed 07/13/19 No Stop Date Active Ozempic 1 mg/dose (4 mg/3 mL) subcutaneous pen injector RxNorm: 0513507 Inject 1 Milligram(s) Subcutaneous QW once a week 07/13/19 No Stop Date Active Guaifenesin AC 10 mg-100 mg/5 mL oral liquid RxNorm: 725061 Take 10 Milliliter(s) Oral Q4H every four hours as needed 07/13/19 No Stop Date Active hydrocortisone 2.5 % topical cream RxNorm: 773005 Apply 1 Application Topical BID as needed 07/13/19 No Stop Date Active rosuvastatin 20 mg sprinkle capsule RxNorm: 4798536 Take 1 Capsule(s) Oral QD 07/13/19 24 025 Inactive rosuvastatin 40 mg tablet RxNorm: 762738 Take 1 Tablet(s) Oral QPM every evening 07/13/19 024 Inactive ezetimibe 10 mg tablet RxNorm: 160278 Take 1 Tablet(s) Oral QD 07/13/19 24 025 Inactive aripiprazole 15 mg tablet RxNorm: 489396 Take 1/2 Tablet(s) Oral QD 07/13/19 24 024 Inactive isosorbide mononitrate ER 60 mg tablet,extended release 24 hr RxNorm: 284894 Take 1 Tablet(s) Oral QD 07/13/19 24 024 Inactive ammonium lactate 12 % topical cream RxNorm: 372157 Apply 1 Application Topical BID 07/13/19 24 025 Inactive Vascepa 1 gram capsule RxNorm: 4042392 Take 2 Capsule(s) Oral BID 07/13/19 24 024 Inactive venlafaxine ER 75 mg capsule,extended release 24 hr RxNorm: 678629 Take 3 Capsule(s) Oral QD 07/13/19 24 024 Inactive Basaglar KwikPen U-100 Insulin 100 unit/mL (3 mL) subcutaneous RxNorm: 6202168 Inject 30U SubQ twice daily 07/07/19 24 024 Inactive Please dispense one month supply. Tusharagldestin KwikPen U-100 Insulin 100 unit/mL (3 mL) subcutaneous RxNorm: 5450513 Inject 30U SubQ twice daily 07/07/19 24 024 Inactive Please dispense one month supply. pregabalin 150 mg capsule RxNorm: 824122 Take 1 Capsule(s) Oral QHS every night at bedtime 07/05/19 24 024 Inactive pregabalin 150 mg capsule RxNorm: 790693 Take 1 Capsule(s) Oral QHS every night at bedtime 07/05/19 24 024 Inactive polyethylene glycol 3350 17 gram/dose oral powder RxNorm: 620966 Take 1 Packet Oral QD as needed (1 packet = 17g) mix with 4-8oz of liquid 06/15/19 24 024 Inactive bisacodyl 10 mg rectal suppository RxNorm: 914027 Insert one suppository per rectum once daily as needed for constipation 06/15/19 24 024 Inactive bisacodyl 10 mg rectal suppository RxNorm: 377937 Insert one suppository per rectum once daily as needed for constipation 06/15/19 24 024 Inactive pregabalin 100 mg capsule RxNorm: 729718 Take 1 Capsule(s) Oral QAM every morning 04/27/20 23 024 Inactive Levemir FlexPen 100 unit/mL (3 mL) solution subcutaneous insulin pen RxNorm: 439321 Inject 30 Unit(s) Subcutaneous BID 04/27/20 23 024 Inactive rosuvastatin 40 mg tablet RxNorm: 380418 Take 1 Tablet(s) Oral QPM every evening 04/16/20 23 024 Inactive D/C rosuvastatin 20mg venlafaxine ER 75 mg capsule,extended release 24 hr RxNorm: 058154 Take 3 Capsule(s) Oral QD 04/14/20 23 023 Inactive pregabalin 100 mg capsule RxNorm: 637612 Take 1 Capsule(s) Oral QAM every morning [...] strip clotrimazole 1 % topical cream RxNorm: 493759 Take apply topically to abdominal folds twice daily for 14 days 03/12/20 024 Inactive Ozempic 1 mg/dose (4 mg/3 mL) subcutaneous pen injector RxNorm: 2929006 Inject 1 Milligram(s) Subcutaneous QW once a week 03/11/20 023 Inactive rosuvastatin 20 mg tablet RxNorm: 377131 Take 1 Tablet(s) Oral QD 02/26/20 023 Inactive d/c pravastatin 80mg Ozempic 1 mg/dose (4 mg/3 mL) subcutaneous pen injector RxNorm: 5013453 Inject 1 Milligram(s) Subcutaneous QW once a week 02/20/20 023 Inactive pregabalin 150 mg capsule RxNorm: 234948 Take 1 Capsule(s) Oral HS at bed time 02/19/20 23 023 Inactive pregabalin 100 mg capsule RxNorm: 033188 Take 1 Capsule(s) Oral QAM every morning 02/18/20 23 023 Inactive venlafaxine ER 75 mg capsule,extended release 24 hr RxNorm: 000968 Take 3 Capsule(s) Oral QD 02/04/20 23 023 Inactive FreeStyle Chema 2 Sensor kit RxNorm: use as directed 02/04/20 23 023 Inactive FreeStyle Chema 2 Sensor kit RxNorm: use as directed 02/04/20 23 024 Inactive fluconazole 150 mg tablet RxNorm: 058638 Take 1 Tablet(s) Oral on day 3 and on day 6 02/03/20 024 Inactive venlafaxine ER 150 mg capsule,extended release 24 hr RxNorm: 440234 Take 1 Capsule(s) Oral QD 02/03/20 023 Inactive chlorthalidone 25 mg tablet RxNorm: 936378 Take 1 Tablet(s) Oral QAM every morning 02/03/20 23 024 Inactive acetaminophen 500 mg tablet RxNorm: 625177 1 TABLET ORALLY 3 TIMES DAILY (MAX APAP:4GM/24HR) 12/15/19 23 023 Inactive clotrimazole 1 % topical cream RxNorm: 119415 apply 1g topically to top of feet and in between toes BID 12/09/19 23 025 Inactive potassium chloride ER 20 mEq tablet,extended release RxNorm: 172236 Take 1 Tablet(s) Oral BID 12/09/19 024 Inactive d/c 20mEq once daily (sent from hospital) nystatin 100,000 unit/gram topical powder RxNorm: 374382 APPLY TO AFFECTED AREAS TOPICALLY 2 TIMES DAILY 11/21/19 023 Inactive Nystop 100,000 unit/gram topical powder RxNorm: 169855 Apply to abd folds, under breasts and L side of groin Topical BID x 14 days, then BID PRN 11/20/19 23 023 Inactive dx: yeast dermatitis [place] Ultra Strength 4 %-30 %-10 % topical cream RxNorm: 963712 Apply 1 Gram(s) Topical QID PRN to feet and legs for neuropathic pain 11/11/19 024 Inactive clotrimazole 1 % topical cream RxNorm: 913146 Apply 1/2 Gram(s) Topical BID Apply to affected areas of groin, periarea, and abdominal topically 2 times daily 11/10/19 23 023 Inactive hydrocortisone 2.5 % topical cream RxNorm: 207337 Apply 1/2 Gram(s) Topical BID as needed 11/10/19 23 024 Inactive Levemir FlexPen 100 unit/mL (3 mL) solution subcutaneous insulin pen RxNorm: 850828 Inject 30 Unit(s) Subcutaneous BID 10/07/19 23 023 Inactive Humulin R U-500 (Concentrated) Insulin 500 unit/mL subcutaneous soln RxNorm: 143069 Inject 100 Unit(s) Subcutaneous TID 10/07/19 024 Inactive Ozempic 0.25 mg or 0.5 mg (2 mg/3 mL) subcutaneous pen injector RxNorm: 3782395 Inject 1/2 Milligram(s) Subcutaneous QW once a week 10/07/19 024 Inactive aripiprazole 15 mg tablet RxNorm: 758761 1/2 TAB (7.5MG) ORALLY DAILY (DX:MAJOR DEPRESSIVE DISORDER) 09/23/19 023 Inactive Accu-Chek Guide test strips RxNorm: Use 1 Test Strip QID 09/15/19 023 Inactive ok to substitute with any covered alternative test strip Lancets,Thin 28 gauge RxNorm: Use 1 as directed QID 09/15/19 023 Inactive torsemide 20 mg tablet RxNorm: 007134 Take 1 Tablet(s) Oral BID 09/09/19 024 Inactive d/c once daily dosing carvedilol 25 mg tablet RxNorm: 275556 Take 1 Tablet(s) Oral QD 08/25/19 024 Inactive pregabalin 150 mg capsule RxNorm: 399323 1 Capsule(s) Oral HS at bed time 08/18/19 023 Inactive pregabalin 100 mg capsule RxNorm: 666520 1 Capsule(s) Oral QAM every morning 08/18/19 23 023 Inactive carvedilol 25 mg tablet RxNorm: 452120 1 Tablet(s) Oral QD 07/28/19 23 023 Inactive lisinopril 20 mg tablet RxNorm: 903144 Give 1 Tablet(s) Oral QD 07/28/19 23 023 Inactive Lyrica 150 mg capsule RxNorm: 466008 Take 1 Capsule(s) Oral QHS every night at bedtime 07/19/19 023 Inactive d/c 100mg dose Diflucan 150 mg tablet RxNorm: 904182 Take 1 Tablet(s) Oral QD repeat on day 3 and 6 07/19/19 23 023 Inactive pregabalin 100 mg capsule RxNorm: 120309 Take 1 Capsule(s) Oral QAM every morning 07/19/19 23 023 Inactive gatifloxacin 0.5 % eye drops RxNorm: 942701 Instill 1 Drop(s) as directed TID Instill 1 drop in to affected eye(s) starting 1 day prior to surgery and continue until gone (do not exceed 4 weeks). 07/13/19 23 023 Inactive carvedilol 25 mg tablet RxNorm: 251083 2 Tablet(s) Oral BID 07/13/19 23 023 Inactive Humulin R Regular U-100 Insulin 100 unit/mL injection solution RxNorm: 153884 85 Unit(s) Injection TID 07/13/19 23 023 Inactive ketorolac 0.5 % eye drops RxNorm: 125615 Instill 1 Drop(s) as directed QID Instill 1 drop into affected eye(s) 4 times daily starting 1 day prior to surgery and continue until gone (do not exceed 4 weeks). 07/13/19 23 023 Inactive Diflucan 150 mg tablet RxNorm: 182328 Take 1 Tablet(s) Oral QD repeat on day 3 and 6 06/30/19 23 023 Inactive Accu-Chek Guide test strips RxNorm: Use 1 Test Strip QID Use 1 test strip to monitor blood glucose 4 times daily and as needed. Dx:E11.42. 06/23/19 23 023 Inactive ok to substitute with any covered alternative test strip dextromethorphan-gu aifenesin 10 mg-100 mg/5 mL oral liquid RxNorm: 188222 Take 10 Milliliter(s) Oral every 4 hours as needed for cough 06/19/19 23 023 Inactive dextromethorphan-gu aifenesin 10 mg-100 mg/5 mL oral liquid RxNorm: 329798 Take 10 Milliliter(s) Oral every 4 hours as needed for cough 06/19/19 23 023 Inactive Lyrica 150 mg capsule RxNorm: 705536 Take 1 Capsule(s) Oral QHS every night at bedtime 06/18/19 023 Inactive d/c 100mg dose aripiprazole 15 mg tablet RxNorm: 428532 /2 TAB (7.5MG) ORALLY DAILY (DX:MAJOR DEPRESSIVE DISORDER) 06/05/19 23 023 Inactive pregabalin 100 mg capsule RxNorm: 218818 1 Capsule(s) Oral QAM every morning 06/02/19 023 Inactive Banophen 50 mg capsule RxNorm: 4624133 Take 1 Capsule(s) Oral Q6H every 6 hours as needed 05/19/19 23 No Stop Date Active Novolog Flexpen U-100 Insulin aspart 100 unit/mL (3 mL) subcutaneous RxNorm: 8262111 Inject 10 Unit(s) Subcutaneous QHS every night at bedtime with nighttime snack 04/08/20 022 Inactive Novolog Flexpen U-100 Insulin aspart 100 unit/mL (3 mL) subcutaneous RxNorm: 9195523 Inject 42 Unit(s) Subcutaneous TID in addition to sliding scale 04/08/20 022 Inactive d/c 36u albuterol sulfate HFA 90 mcg/actuation aerosol inhaler RxNorm: 7885099 Take 2 Puff(s) Inhalation Q4H every four hours as needed as needed for SOB, cough, or wheezing 04/07/20 22 030 Active Banophen 50 mg capsule RxNorm: 3797853 Take 1 Capsule(s) Oral Q6H every 6 hours as needed 04/06/20 023 Inactive diphenhydramine 50 mg tablet RxNorm: 0791911 Take 1 Tablet(s) Oral Q6H every 6 hours as needed 04/06/20 22 022 Inactive diphenhydramine 50 mg tablet RxNorm: 9076708 1 Tablet(s) Oral Q6H every 6 hours as needed 04/06/20 22 022 Inactive Abilify 15 mg tablet RxNorm: 900932 /2 Tablet(s) Oral QD 03/10/20 22 023 Inactive Shingrix (PF) 50 mcg/0.5 mL intramuscular suspension, kit RxNorm: 3816426 Administer 1/2 Milliliter(s) Intramuscular QD one time shingrix step 2 ( step 1 given 11/04/21) WITH needle - Nursing please administer upon arrival and once administered post a bridge message 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, 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, expiration date, and lot# so we can update [facility] 02/18/20 22 022 Inactive dispense with needle Shingrix (PF) 50 mcg/0.5 mL intramuscular suspension, kit RxNorm: 8292775 Administer 1/2 Milliliter(s) Intramuscular QD one time shingrix step 2 ( step 1 given 11/04/21) WITH needle - Nursing please administer upon arrival and once administered post a bridge message with date of administration, 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, expiration date, and lot# so we can update [facility] 02/18/20 22 022 Inactive dispense with needle polyethylene glycol 3350 17 gram/dose oral powder RxNorm: 313260 Take 17=1 capful Gram(s) Oral QD mix with 4-8oz of liquid 01/08/20 22 025 Inactive take this in addition to BID prn order Lyrica 100 mg capsule RxNorm: 310808 Take 1 Capsule(s) Oral QAM every morning 01/08/20 22 022 Inactive d/c 50mg dose acetaminophen 500 mg tablet RxNorm: 037689 Take 1 Tablet(s) Oral TID 01/08/20 22 022 Inactive d/c PRN order Lyrica 150 mg capsule RxNorm: 606822 Take 1 Capsule(s) Oral QHS every night at bedtime 01/08/20 22 023 Inactive d/c 100mg dose Abilify 5 mg tablet RxNorm: 577545 Take 1 Tablet(s) Oral QD take 1 tab po QD #30 refill 5 dx: MDD 12/12/19 22 022 Inactive Abilify 5 mg tablet RxNorm: 681816 Take 1 Tablet(s) Oral QD take 1 tab po QD #30 refill 5 dx: MDD 12/12/19 22 022 Inactive Novolog Flexpen U-100 Insulin aspart 100 unit/mL (3 mL) subcutaneous RxNorm: 1253239 Inject 42 Unit(s) Subcutaneous TID in addition to sliding scale 12/10/19 22 022 Inactive d/c 36u chlorthalidone 25 mg tablet RxNorm: 445212 Take 1 Tablet(s) Oral QAM every morning 12/10/19 22 023 Inactive pregabalin 50 mg capsule RxNorm: 802560 Take 1 Capsule(s) Oral QAM every morning 11/12/19 22 022 Inactive tetanus-diphtheria toxoids-Td 2 Lf unit-2 Lf unit/0.5 mL IM suspension RxNorm: 139 Take 0.5 Miscellaneous Intramuscular 11/12/19 22 022 Inactive need tdap - nursing to administer upon arrival pregabalin 50 mg capsule RxNorm: 930094 Take 1 Capsule(s) Oral QAM every morning 10/16/19 22 Inactive pregabalin 50 mg capsule RxNorm: 139918 Take 1 Capsule(s) Oral QAM every morning 10/16/19 22 022 Inactive pregabalin 50 mg capsule RxNorm: 194487 1 Capsule(s) Oral QAM every morning 10/15/19 22 022 Inactive Shingrix (PF) 50 mcg/0.5 mL intramuscular suspension, kit RxNorm: 7890607 Administer 1/2 Milliliter(s) Intramuscular one time Nursing please administer upon arrival and once administered post a bridge message with date of administration, 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 10/09/19 22 022 Inactive shingrix step 1 Shingrix (PF) 50 mcg/0.5 mL intramuscular suspension, kit RxNorm: 3378958 Administer 1/2 Milliliter(s) Intramuscular one time Nursing please administer upon arrival and once administered post a bridge message with date of administration, 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, expiration date, and lot# so we [...] aspart 100 unit/mL (3 mL) subcutaneous RxNorm: 2047576 Inject 10 Unit(s) Subcutaneous QHS every night at bedtime with nighttime snack 10/08/19 22 022 Inactive Shingrix (PF) 50 mcg/0.5 mL intramuscular suspension, kit RxNorm: 5719788 ADMINISTER 2-DOSE SERIES PER CDC GUIDELINES 10/08/19 22 Active Shingrix (PF) 50 mcg/0.5 mL intramuscular suspension, kit RxNorm: 7743815 ADMINISTER 2-DOSE SERIES PER CDC GUIDELINES 10/08/19 22 Inactive Novolog Flexpen U-100 Insulin aspart 100 unit/mL (3 mL) subcutaneous RxNorm: 3590097 Inject 36 Unit(s) Subcutaneous TID in addition to sliding scale 10/08/19 22 Inactive cholecalciferol (vitamin D3) 1,250 mcg (50,000 unit) capsule RxNorm: 572424 Take 1 Capsule(s) Oral QW once a week 10/08/19 024 Inactive Novofine Autocover 30 gauge x 1/3 needle RxNorm: Use 1 Miscellaneous UD as directed Use 1 needle as directed to administer insulin 5 times a day Dx:E11.42. 10/03/19 022 Inactive ok to substitute with any covered alternative pen needle benzoyl peroxide 10 % topical cleanser RxNorm: 913495 Apply 1 Application Topical QD apply to face, wash rinse and dry once daily (may change to QOD if drying) 08/19/19 22 022 Inactive (%covered by insurance) #60ml refill 11 dx: acne benzoyl peroxide 10 % topical cleanser RxNorm: 697850 Apply 1 Application Topical QD apply to face, wash rinse and dry once daily (may change to QOD if drying) 08/19/19 22 022 Inactive (%covered by insurance) #60ml refill 11 dx: acne benzoyl peroxide 10 % topical cleanser RxNorm: 821649 Apply 1 Application Topical QD apply to face, wash rinse and dry once daily (may change to QOD if drying) 08/19/19 22 022 Inactive (%covered by insurance) #60ml refill 11 dx: acne Lyrica 50 mg capsule RxNorm: 282402 Take 1 Capsule(s) Oral QAM every morning Take 1 capsule by mouth once daily 08/19/19 22 022 Inactive benzoyl peroxide 10 % topical cleanser RxNorm: 289174 Apply 1 Application Topical QD apply to face, wash rinse and dry once daily (may change to QOD if drying) 08/19/19 022 Inactive (%covered by insurance) #60ml refill 11 dx: acne Lyrica 100 mg capsule RxNorm: 253000 Take 1 Capsule(s) Oral QHS every night at bedtime Take 1 capsule by mouth once daily at bedtime 08/19/19 Inactive Lyrica 100 mg capsule RxNorm: 966866 Take 1 Capsule(s) Oral QHS every night at bedtime Take 1 capsule by mouth once daily at bedtime 08/16/19 22 Inactive Lyrica 50 mg capsule RxNorm: 598148 Take 1 Capsule(s) Oral QAM every morning Take 1 capsule by mouth once daily 08/16/19 Inactive Levemir FlexTouch U-100 Insulin 100 unit/mL (3 mL) subcutaneous pen RxNorm: 984318 Inject 86 Unit(s) Subcutaneous BID 08/05/19 22 Inactive d/c 83units BID Lyrica 100 mg capsule RxNorm: 400534 Take 1 Capsule(s) Oral QHS every night at bedtime Take 1 capsule by mouth once daily at bedtime 07/14/19 22 022 Inactive Lyrica 50 mg capsule RxNorm: 212120 Take 1 Capsule(s) Oral QAM every morning Take 1 capsule by mouth once daily 07/14/19 22 022 Inactive Levemir FlexTouch U-100 Insulin 100 unit/mL (3 mL) subcutaneous pen RxNorm: 683813 Inject 83 Unit(s) Subcutaneous BID 07/08/19 22 [...] test strip hydralazine 50 mg tablet RxNorm: 823105 Take 1 Tablet(s) Oral QID 05/05/20 21 022 Inactive venlafaxine ER 225 mg tablet,extended release 24 hr RxNorm: 969677 Take 1 Tablet(s) Oral QD 05/05/20 21 021 Inactive venlafaxine ER 225 mg tablet,extended release 24 hr RxNorm: 835380 Take 1 Tablet(s) Oral QD 05/05/20 022 Inactive isosorbide mononitrate ER 30 mg tablet,extended release 24 hr RxNorm: 654315 Take 1 Tablet(s) Oral QD 05/05/20 21 024 Inactive hydralazine 50 mg tablet RxNorm: 554381 Take 1 Tablet(s) Oral QID 05/05/20 21 Inactive aspirin 81 mg tablet,delayed release RxNorm: 013837 Take 1 Tablet(s) Oral QD 03/31/20 022 Inactive Vitamin D2 1,250 mcg (50,000 unit) capsule RxNorm: 1156749 Take 1 Capsule(s) Oral QW once a week x 12 weeks 03/31/20 022 Inactive Vitamin D2 1,250 mcg (50,000 unit) capsule RxNorm: 3436692 Take 1 Capsule(s) Oral QW once a week 03/31/20 021 Inactive Zetia 10 mg tablet RxNorm: 256711 Take 1 Tablet(s) Oral QD 03/31/20 024 Inactive Zetia 10 mg tablet RxNorm: 419484 Take 1 Tablet(s) Oral QD 03/31/20 021 Inactive hydralazine 25 mg tablet RxNorm: 516461 Take 1 Tablet(s) Oral QID 03/31/20 021 Inactive hydralazine 25 mg tablet RxNorm: 790541 Take 1 Tablet(s) Oral QID 03/31/20 021 Inactive hydralazine 10 mg tablet RxNorm: 082487 Take 1 Tablet(s) Oral QID 03/03/20 021 Inactive cephalexin 500 mg tablet RxNorm: 136065 Take 1 Tablet(s) Oral QID 02/27/20 021 Inactive cephalexin 500 mg tablet RxNorm: 775704 Take 1 Tablet(s) Oral QID 02/27/20 21 021 Inactive lisinopril 40 mg tablet RxNorm: 492309 Take 1 Tablet(s) Oral QD 09 023 Inactive Eliquis 5 mg tablet RxNorm: 5382259 Take 1 Tablet(s) Oral BID 01/05/20 21 025 Inactive Eliquis 5 mg tablet RxNorm: 8455209 Take 2 Tablet(s) Oral QD 01/01/20 21 021 Inactive Lyrica 50 mg capsule RxNorm: 498822 Take 1 Capsule(s) Oral QAM every morning 12/24/19 21 021 Inactive Lyrica 100 mg capsule RxNorm: 458110 Take 1 Capsule(s) Oral QHS every night at bedtime 12/24/19 021 Inactive clotrimazole 1 % topical cream RxNorm: 248824 Apply to right foot and toes Topical BID 12/04/19 21 023 Inactive metoprolol succinate ER 200 mg tablet,extended release 24 hr RxNorm: 837012 Take 1 Tablet(s) Oral QD 12/04/19 023 Inactive ciprofloxacin 500 mg tablet RxNorm: 408161 Take 1 Tablet(s) Oral QD 11/30/19 021 Inactive DX ofloxacin otic drops Accu-Chek Guide test strips RxNorm: USE 1 TO CHECK GLUCOSE 4 TIMES DAILY AND NEEDED 11/15/19 21 023 Inactive Blood Glucose Test strips RxNorm: Use 1 Test Strip QID at PRN 11/05/19 21 023 Inactive E11.42 lisinopril 30 mg tablet RxNorm: 368029 Take 1 Tablet(s) Oral QD 10/30/19 021 Inactive lisinopril 20 mg tablet RxNorm: 570078 Take 1 Tablet(s) Oral QD 10/23/19 021 Inactive lisinopril 20 mg tablet RxNorm: 346260 Take 1 Tablet(s) Oral QD 10/23/19 21 021 Inactive lisinopril 10 mg tablet RxNorm: 957232 Take 1 Tablet(s) Oral QD 10/02/19 21 021 Inactive icosapent ethyl 1 gram capsule RxNorm: 5016130 Take 2 Capsule(s) (2 gm) Oral BID with meals 09/12/19 21 024 Inactive Okay to dispense one 2gm tab if you have that available. icosapent ethyl 1 gram capsule RxNorm: 6587756 Take 2 Capsule(s) Oral BID 09/12/19 21 021 Inactive Okay to dispense one 2gm tab if you have that available. amlodipine 10 mg tablet RxNorm: 425120 Take 1 Tablet(s) Oral QD 09/04/19 21 021 Inactive aspirin 81 mg tablet,delayed release RxNorm: 156122 Take 1 Tablet(s) Oral QD 09/04/19 21 021 Inactive Levemir FlexTouch U-100 Insulin 100 unit/mL (3 mL) subcutaneous pen RxNorm: 904336 Inject 150 Unit(s) Subcutaneous BID 09/04/19 21 022 Inactive venlafaxine ER 150 mg tablet,extended release 24 hr RxNorm: 124080 Take 1 Tablet(s) Oral QD 09/04/19 21 021 Inactive clotrimazole-betame thasone 1 %-0.05 % topical cream RxNorm: 271405 Apply to rash on red area on left abdomen/chest Topical BID 08/10/19 21 021 Inactive amlodipine 5 mg tablet RxNorm: 550899 Take 1 Tablet(s) Oral QD 07/31/19 21 021 Inactive cephalexin 500 mg tablet RxNorm: 755073 Take 1 Tablet(s) Oral BID BID - Twice Daily 07/31/19 21 021 Inactive Start 08/01/20 pantoprazole 40 mg tablet,delayed release RxNorm: 711545 Take 1 Tablet(s) Oral QAM every morning 07/08/19 21 025 Inactive clopidogrel 75 mg tablet RxNorm: 122804 Take 1 Tablet(s) Oral QD 07/08/19 21 021 Inactive Blood Glucose Test strips RxNorm: Use 1 Test Strip QID at PRN 07/08/19 21 021 Inactive E11.42 senna 8.6 mg tablet RxNorm: 557272 Take 1 Tablet(s) Oral QD 02/22 025 Inactive Novolog Flexpen U-100 Insulin aspart 100 unit/mL (3 mL) subcutaneous RxNorm: 6609991 Administer per sliding scale Milliliter(s) Subcutaneous TID 151-200: 10 u; 201-250: 20 u; 251-300: 30 u; 301-350: 40 u; 351-400: 50 u. 07/08/19 022 Inactive lisinopril 5 mg tablet RxNorm: 479356 Take 1 Tablet(s) Oral QD 07/08/19 21 021 Inactive Novolog Flexpen U-100 Insulin aspart 100 unit/mL (3 mL) subcutaneous RxNorm: 1205771 Inject 85 Unit(s) Subcutaneous TID 07/08/19 022 Inactive pravastatin 80 mg tablet RxNorm: 860537 Take 1 Tablet(s) Oral QHS every night at bedtime 07/08/19 023 Inactive clotrimazole 1 % topical cream RxNorm: 079133 Apply to bilateral groin areas Topical BID 07/08/19 21 022 Inactive metoprolol succinate ER 200 mg tablet,extended release 24 hr RxNorm: 360221 Take 1 Tablet(s) Oral QD 07/08/19 21 021 Inactive Vitamin D3 25 mcg (1,000 unit) tablet RxNorm: 658419 Take 1 Tablet(s) Oral QD 07/08/19 021 Inactive isosorbide dinitrate 30 mg tablet RxNorm: 231352 Take 1 Tablet(s) Oral QD 07/08/19 021 Inactive carbamazepine 200 mg tablet RxNorm: 444293 Take 1 Tablet(s) Oral BID 07/08/19 21 025 Inactive Levemir FlexTouch U-100 Insulin 100 unit/mL (3 mL) subcutaneous pen RxNorm: 713000 Inject 140 Unit(s) Subcutaneous BID 07/08/19 21 021 Inactive torsemide 20 mg tablet RxNorm: 756375 Take 1 Tablet(s) Oral QD 07/08/19 21 023 Inactive venlafaxine 75 mg tablet RxNorm: 740522 Take 1 Tablet(s) Oral QD 07/08/19 21 021 Inactive acetaminophen 500 mg tablet RxNorm: 842681 Take 1 Tablet(s) Oral TID as needed for headache 06/18/19 21 021 Inactive acetaminophen 500 mg tablet RxNorm: 332269 Take 1 Tablet(s) Oral TID as needed for headache 06/18/19 21 021 Inactive Lyrica 100 mg capsule RxNorm: 039024 Take 1 Capsule(s) Oral QHS every night at bedtime 06/11/19 21 021 Inactive Lyrica 50 mg capsule RxNorm: 538219 Take 1 Capsule(s) Oral QAM every morning 06/10/19 21 021 Inactive hydrocortisone 2.5 % topical cream RxNorm: 716540 Apply to bilateral groin creases Topical BID 05/15/20 20 021 Inactive clotrimazole 1 % topical cream RxNorm: 402902 Apply to bilateral groin areas Topical BID 05/15/20 20 021 Inactive Lyrica 50 mg capsule RxNorm: 415095 Take 1 Capsule(s) Oral QAM every morning 05/14/20 20 020 Inactive Lyrica 100 mg capsule RxNorm: 368462 Take 1 Capsule(s) Oral QHS every night [...] Inactive Nystop 100,000 unit/gram topical powder RxNorm: 536158 Apply to abd folds, under breasts and L side of groin Topical BID x 14 days, then BID PRN 04/08/20 20 Inactive dx: yeast dermatitis Lyrica 100 mg capsule RxNorm: 479205 Take 1 Capsule(s) Oral QHS every night at bedtime 03/13/20 20 Inactive Lyrica 50 mg capsule RxNorm: 965916 Take 1 Capsule(s) Oral QAM every morning 03/13/20 20 Inactive ketoconazole 2 % shampoo RxNorm: 848077 Apply Topical two times a week with showers 03/11/20 20 024 Inactive cholecalciferol (vitamin D3) 50 mcg (2,000 unit) tablet RxNorm: 114484 Take 1 Tablet(s) Oral QD 03/11/20 20 021 Inactive Zetia 10 mg tablet RxNorm: 687579 Take 1 Tablet(s) Oral QD 03/07/20 20 021 Inactive Zetia 10 mg tablet RxNorm: 195667 Take 1 Tablet(s) Oral QD 03/07/20 20 020 Inactive Lyrica 50 mg capsule RxNorm: 609893 Take 1 Capsule(s) Oral QAM every morning 02/15/20 20 020 Inactive Lyrica 100 mg capsule RxNorm: 855756 Take 1 Capsule(s) Oral QHS every night at bedtime 02/15/20 20 020 Inactive Lyrica 100 mg capsule RxNorm: 827255 Take 1 Capsule(s) Oral QHS every night at bedtime 02/15/20 20 020 Inactive Lyrica 50 mg capsule RxNorm: 383580 Take 1 Capsule(s) Oral QAM every morning 02/15/20 20 020 Inactive loperamide 2 mg capsule RxNorm: 514665 Take 1 Capsule(s) Oral QID as needed 09/06/19 25 025 Inactive venlafaxine ER 75 mg capsule,extended release 24 hr RxNorm: 328690 Take 3 Capsule(s) Oral QD 06/12/19 22 023 Inactive polyethylene glycol 3350 17 gram/dose oral powder RxNorm: 320403 Take 17=1 capful Gram(s) Oral BID as needed mix with 4-8oz of liquid 06/12/19 22 024 Inactive icosapent ethyl 1 gram capsule RxNorm: 2885712 Take 2 Capsule(s) (2 gm) Oral BID with meals 10/07/19 23 023 Inactive Okay to dispense one 2gm tab if you have that available. Levemir FlexTouch U-100 Insulin 100 unit/mL (3 mL) subcutaneous pen RxNorm: 755336 Inject 80 Unit(s) Subcutaneous BID 07/14/19 23 023 Inactive metoprolol succinate ER 200 mg tablet,extended release 24 hr RxNorm: 873758 Take 1 Tablet(s) Oral QD 08/12/19 025 Inactive hydralazine 50 mg tablet RxNorm: 422438 Take 1 Tablet(s) Oral QID 08/12/19 025 Inactive Soft Touch Lancets RxNorm: miscellaneous 03/04/20 24 025 Inactive Novolog Flexpen U-100 Insulin aspart 100 unit/mL (3 mL) subcutaneous RxNorm: 7690857 Insert 30 Unit(s) Subcutaneous TID with meals [...] Planned Activity Notes Codes Status Date Referral: [facility] [address] [id number] [place]ReferralAppointment [id number]/06/2025Referral: [facility]/Endocrinology WPtel: [address] [facility] [address] [id number] USReferralNo Records [id number]/24/2025Referral: [facility] WPtel: [address], [address] [id number] [place]ReferralRecords [id number]/08/2023Referral: [facility] [address]el: [address] [id number]/12/2022Referral: General CardiologyReferralCompleted 1Referral: General PsychologistReferralClosedReferral: General PsychiatristReferralPatient/Family [...] Sister Jyotsna involved in his care cell# [phone] Guardian: Giulia (tapan met in person 09/01/21), now has Lexii (same group as giulia)AWV 9. Lab Schedule: Mar-/September*September (CBC with diff, CMP, [...] appointment 05.26.2024 with Jessa Webster MD at [facility]. Start Pioglitazone 15 mg QD. Stop Basaglar insulin. Increase Ozempic 2 mg once wkly. Continue Humalin R U-500 100 units with meals TID. FOLLOW UP 2 MONTHS. If BG >400 add 50 units to next scheduled dose of Humalin R U 500 insulin 06/12/2024
--- OUTSIDE RECORDS SUMMARY | 2024-10-19 18:11 | XMS_ITS | CCD ---
Author Name Cecilio Durham Address [address] [place] [address] Phone Organization [facility] Phone Care Team Providers Care Pcas Name Role Phone Harrison Durham Primary Care Provider Leona vailable Unavailable Chronic Care Management Unavaila ble Summary Purpose DataExchange Insurance Providers Payer name Policy type / Coverage type Covered alliance party ID Effective Begin Date Effective End Date [place] B [id number] Unknown Unknown [place] [id number] Unknown Unknown Family history Sister Brittany Suggs Diagnosis Age At Onset No Family Disease Entered N/A Runs in the family Diagnosis Age At Onset No Known Diseases N/A Sister Blanka Mcduffie Diagnosis Age At Onset No Family Disease Entered N/A Social History Social History Element Codes Description Effec tive Dates Tobacco history SNOMED CT: 926992298 Never smoker 01/16 Sexually Active? Unknown No [...] 10/07/2021 Living arrangements Unknown [facility]fp 09/03/[address]: 335022561 No Alcohol Consum ption 09/02/2020 Allergies, Adverse Reactions, Alerts Substance Reaction Codes Entered Date Inactivated Date Status * NO KNOWN FOOD ALLERGIES Nejchko8707/13/2023No Inactive DateActiveLISINOPRILRxNorm: 720933002/12/2020No Inactive DateActiveMetformin HNpKyaiasl02/28/2020 Inactive DateActive* NO KNOWN ENVIRONMENTAL LLHWUMYKAMwzelus02/27/2024 Inactive DateActive Problems Condition Codes Effective Dates Condition St atus Advance care planning ICD-10: Z71.89 ICD-9: V65.4912ctiveHemorrhoidsICD-10: K64.9 ICD-9: 455.612ctiveHyperlipidemia associated with type 2 diabetes mellitusICD-10: E11.69 ICD-9: 250.8012ctiveHypertensive heart disease without heart failure ICD-10: I11.9 ICD-9: 402.9012ctiveHypokalemiaICD-10: E87.6 ICD-9: 276.812ctiveStage 2 chronic 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ICD-10: E11.22 ICD-9: 250.4012ctiveType 2 diabetes mellitus with diabetic polyneuropathy, with long-term current use of insulinICD-10: E11.42 ICD-9: 250.6012ctiveOnychogryposisICD-10: L60.2 ICD-9: 703.811ctiveBMI 60.0-69.9, adultICD-10: Z68.44 ICD-9: V85.4410ctiveDiabetic neuropathy associated with type 2 diabetes mellitusICD-10: E11.40 ICD-9: 250.6010ctiveLow back painICD-10: M54.50 ICD-9: 724.210ctiveParaparesis of both lower limbsICD-10: G82.20 ICD-9: 344.110ctivePhysical deconditioningICD-10: R53.81 ICD-9: 799.310ctivePVD (peripheral vascular disease)ICD-10: I73.9 ICD-9: 443.910/ctiveAdvanced care planning - to document end of life hiiureucsmhAoyzgvh99/24/2024ctiveAmputated toe of right footICD-10: S98.131A ICD-9: 895.009/ctiveAnnual physical examICD-10: Z00.00 ICD-9: V70.009/ctiveCandidal intertrigoICD-10: B37.2 ICD-9: 112.309/ctiveConstipation by delayed colonic transitICD-10: K59.01 ICD-9: 564.0109/ctiveHistory of anemia due to CKDICD-10: N18.9 ICD-9: 585.909/ctiveHx of deep venous thrombosisICD-10: Z86.718 ICD-9: V12.5109/ctiveHypercoagulable stateICD-10: D68.59 ICD-9: 289.8109/ctiveLearning disabilityICD-10: F81.9 ICD-9: 315.209/ctiveLower extremity edemaICD-10: R60.0 ICD-9: 782.309/ctiveMajor depression, recurrentICD-10: F33.9 ICD-9: 296.3009/ctivePressure ulcer of left calf, unstageableICD-10: L89.890 ICD-9: 707.0909/ctiveReducible umbilical herniaICD-10: K42.9 ICD-9: 553.109/ctiveSeizure disorderICD-10: G40.909 ICD-9: 345.9009/ctiveVitamin D deficiencyICD-10: E55.9 ICD-9: 268.909/ctiveCallus of heelICD-10: L84 ICD-9: 82478/esolvedGout due to renal impairmentICD-10: M10.30 ICD-9: 274.1005/esolvedHyperhidrosis of palmsICD-10: L74.512 ICD-9: 705.21010/12/2023esolvedHyperlipidemia, unspecifiedICD-10: E78.5 ICD-9: 272.405/esolvedOther nursing home (current) drug therapyICD-10: Z79.899 ICD-9: [...] tagICD-10: L91.8 ICD-9: 701.904esolvedCoronary artery disease involving big sandy coronary artery of big sandy heart, angina presence unspecifiedICD-10: I25.10 ICD-9: 414.0102/ctiveInappropriate sexual behaviorICD-10: Z72.89 ICD-9: 312.8910/ctivePre-op evaluationICD-10: Z01.818 ICD-9: V72.8403/ctiveSecondary hypertensionICD-10: I15.9 ICD-9: 405.9903/3ActiveDepressionICD-10: F32.9 ICD-9: 03426/esolvedDVT (deep venous thrombosis)ICD-10: I82.409 ICD-9: 453.4009/esolvedEncounter for [...] to other viral communicable diseasesICD-10: Z20.828 ICD-9: V01.7902/8362JdriolguCinbgyyqQedlnfc83/28/2020ActiveDiabetes mellitus Type 4Gzvisby32/28/2020ActiveAnemia in chronic kidney diseaseICD-10: D63.1 02/12/2020ResolvedHyperlipidemia, unspecifiedICD-10: E78.509Resolved Medications Medication Codes Instructions Start Date Stop Date Status Fill Instructions nystatin 100,000 unit/gram topical powder RxNorm: 511839 Apply 1 Application Topical BID as needed abdominal/breast /groin folds 01/08 026 Active pregabalin 100 mg capsule RxNorm: 142220 Take 1 Capsule(s) Oral QAM every morning 05/22/19 025 Inactive nystatin 100,000 unit/gram topical powder RxNorm: 684797 Apply 1 Application Topical BID as needed abdominal/breast /groin folds 04/11/20 024 Inactive chlorthalidone 25 mg tablet RxNorm: 620728 Take 1 Tablet(s) Oral QAM every morning 04/06/20 No Stop Date Active pregabalin 150 mg capsule RxNorm: 223742 Take 1 Capsule(s) Oral QHS every night at bedtime 03/31/20 024 Inactive Vascepa 1 gram capsule RxNorm: 3625494 Take 2 Capsule(s) Oral BID 03/30/20 025 Active rosuvastatin 40 mg tablet RxNorm: 051900 1 TAB ORALLY EVERY EVENING (DX:CORONARY ARTERY DISEASE) 03/28/20 No Stop Date Active venlafaxine ER 75 mg capsule,extended release 24 hr RxNorm: 730328 3 CAPS (225MG) ORALLY DAILY (DX: MOOD DISORDER) 03/28/20 No Stop Date Active pregabalin 100 mg capsule RxNorm: 329577 Take 1 Capsule(s) Oral QAM every morning 03/20/20 024 Inactive cholecalciferol (vitamin D3) 1,250 mcg (50,000 unit) capsule RxNorm: 754581 Take 1 Capsule(s) Oral QW once a week 03/15/20 025 Active Pen Needle 30 gauge x 5/16 RxNorm: Pen(s) Use 1 needle as directed TID 03/08/20 025 Inactive Lancets,Thin 28 gauge RxNorm: Use 1 as directed TID lancet 03/08/20 024 Inactive Lancets,Thin 28 gauge RxNorm: Use 1 as directed TID lancet 03/08/20 024 Inactive Accu-Chek Guide Glucose Meter RxNorm: Use 1 Miscellaneous UD as directed Use glucose meter to monitor blood glucose 3 times daily. Dx:E11.42 10 Inactive Accu-Chek Guide test strips RxNorm: Use 1 Test Strip TID to test Blood glucose 03/08/20 Inactive ok to substitute with any covered alternative test strip Accu-Chek Guide test strips RxNorm: Use 1 Test Strip TID to test BS 03/08/20 Inactive ok to substitute with any covered alternative test strip Radha Enrique U-100 Insulin 100 unit/mL (3 mL) subcutaneous RxNorm: 9676562 Inject 40 Unit(s) Subcutaneous BID 03/07/20 025 Inactive Please dispense one month supply. Humulin R U-500 (Concentrated) Insulin 500 unit/mL subcutaneous soln RxNorm: 989711 Inject 100 Unit(s) Subcutaneous AC before meals [...] PRN) to be use with new [place]u [place] meter 03/04/20 Inactive ok to substitute with any covered alternative test strip FreeStyle Chema 2 Sensor kit RxNorm: Use UD as directed 03/02/20 Inactive FreeStyle Chema 2 Sensor kit RxNorm: Use UD as directed 03/02/20 Inactive Pen Needle 30 gauge x 516 RxNorm: Pen(s) Use 1 needle as directed TID 03/02/20 Inactive nystatin 100,000 unit/gram topical powder RxNorm: 362365 Apply 1 Application Topical BID as needed abdominal/breast /groin folds 03/02/20 Inactive Accu-Chek Guide test strips RxNorm: [...] (Concentrated) Insulin 500 unit/mL subcutaneous soln RxNorm: 986672 Inject 100 Unit(s) Subcutaneous TID 02/17/20 24 024 Inactive Humulin R U-500 (Concentrated) Insulin 500 unit/mL subcutaneous soln RxNorm: 415687 Inject 100 Unit(s) Subcutaneous TID 02/10/20 24 024 Inactive Basaglar KwikPen U-100 Insulin 100 unit/mL (3 mL) subcutaneous RxNorm: 8785911 Inject 30 Unit(s) Subcutaneous BID 02/10/20 24 024 Inactive Please dispense one month supply. pregabalin 100 mg capsule RxNorm: 063889 Take 1 Capsule(s) Oral QAM every morning 02/07/20 24 024 Inactive isosorbide mononitrate ER 60 mg tablet,extended release 24 hr RxNorm: 249357 Take 1 Tablet(s) Oral QD 02/01/20 24 025 Active aripiprazole 15 mg tablet RxNorm: 646509 Take 1/2 Tablet(s) Oral QD 02/01/20 24 025 Active torsemide 20 mg tablet RxNorm: 317517 1 TAB ORALLY DAILY (DX: EDEMA) 01/27/20 No Stop Date Active potassium chloride ER 20 mEq tablet,extended release(part/cryst) RxNorm: 2942265 2 TABS (40MEQ) ORALLY TWICE DAILY (DX: HYPOKALEMIA) 01/27/20 24 025 Inactive cephalexin 500 mg capsule RxNorm: 431320 Take 1 Capsule(s) Oral QID 12/17/19 24 024 Inactive cephalexin 500 mg capsule RxNorm: 845973 Take 1 Capsule(s) Oral QID 12/17/19 24 024 Inactive acetaminophen 500 mg tablet RxNorm: 045914 (MAX APAP:4GM/24HR) Take 1 Tablet(s) Oral TID as needed for pain 12/10/19 24 Inactive torsemide 20 mg tablet RxNorm: 19821114 Take 1 Tablet(s) Oral QD 10/26/19 Inactive potassium chloride ER 20 mEq tablet,extended release RxNorm: 19800522 Take 2 Tablet(s) Oral BID 10/26/19 24 025 Inactive torsemide 20 mg tablet RxNorm: 19821114 Take 1 Tablet(s) Oral QD 10/26/19 24 024 Inactive potassium chloride ER 20 mEq tablet,extended release RxNorm: 19800522 Take 2 Tablet(s) Oral BID 10/26/19 24 Inactive Artificial Tears (PF) 0.1 %-0.3 % drops in a dropperette RxNorm: 661209 Apply 1-2 Drop(s) Both eyes BID as needed 09/28/19 24 Inactive erythromycin 5 mg/gram (0.5 %) eye ointment RxNorm: 962478 Apply 1 Application Both eyes QHS every night at bedtime Instill ~1 cm ribbon into affected eye 09/28/19 24 Inactive Artificial Tears (PF) 0.1 %-0.3 % drops in a dropperette RxNorm: 946928 Apply 1-2 Drop(s) Both eyes BID as needed 09/28/19 24 Inactive erythromycin 5 mg/gram (0.5 %) eye ointment RxNorm: 781337 Apply 1 Application Both eyes QHS every night at bedtime Instill ~1 cm ribbon into affected eye 09/28/19 24 Inactive acetaminophen 500 mg tablet RxNorm: 181704 (MAX APAP:4GM/24HR) Take 1 Tablet(s) Oral TID as needed for pain 09/24/19 24 024 Inactive carvedilol 25 mg tablet RxNorm: 535666 Take 1 Tablet(s) Oral QD 09/08/19 24 No Stop Date Active pregabalin 100 mg capsule RxNorm: 953429 Take 1 Capsule(s) Oral QAM every morning 09/07/19 24 024 Inactive ezetimibe 10 mg tablet RxNorm: 968725 Take 1 Tablet(s) Oral QD 07/13/19 24 025 Inactive bisacodyl 10 mg rectal suppository RxNorm: 377648 Insert 1 Suppository Rectal QD as needed 07/13/19 24 No Stop Date Active polyethylene glycol 3350 17 gram/dose oral powder RxNorm: 342796 Take 17 Gram(s) Oral BID as needed mix in 4-8ox water 07/13/19 24 025 Inactive ketoconazole 2 % shampoo RxNorm: 189361 Apply 1 Application Topical UD as directed 07/13/19 No Stop Date Active Ozempic 1 mg/dose (4 mg/3 mL) subcutaneous pen injector RxNorm: 2521165 Inject 1 Milligram(s) Subcutaneous QW once a week 07/13/19 No Stop Date Active Guaifenesin AC 10 mg-100 mg/5 mL oral liquid RxNorm: 013333 Take 10 Milliliter(s) Oral Q4H every four hours as needed 07/13/19 No Stop Date Active ammonium lactate 12 % topical cream RxNorm: 180162 Apply 1 Application Topical BID 07/13/19 24 025 Inactive hydrocortisone 2.5 % topical cream RxNorm: 495627 Apply 1 Application Topical BID as needed 07/13/19 No Stop Date Active rosuvastatin 20 mg sprinkle capsule RxNorm: 1456956 Take 1 Capsule(s) Oral QD 07/13/19 24 025 Inactive rosuvastatin 40 mg tablet RxNorm: 885516 Take 1 Tablet(s) Oral QPM every evening 07/13/19 24 024 Inactive aripiprazole 15 mg tablet RxNorm: 155445 Take 1/2 Tablet(s) Oral QD 07/13/19 24 024 Inactive isosorbide mononitrate ER 60 mg tablet,extended release 24 hr RxNorm: 606446 Take 1 Tablet(s) Oral QD 07/13/19 24 024 Inactive Vascepa 1 gram capsule RxNorm: 4978190 Take 2 Capsule(s) Oral BID 07/13/19 24 024 Inactive venlafaxine ER 75 mg capsule,extended release 24 hr RxNorm: 731567 Take 3 Capsule(s) Oral QD 07/13/19 24 024 Inactive Basaglar KwikPen U-100 Insulin 100 unit/mL (3 mL) subcutaneous RxNorm: 6531261 Inject 30U SubQ twice daily 07/07/19 24 024 Inactive Please dispense one month supply. Basaglar KwikPen U-100 Insulin 100 unit/mL (3 mL) subcutaneous RxNorm: 1150186 Inject 30U SubQ twice daily 07/07/19 24 024 Inactive Please dispense one month supply. pregabalin 150 mg capsule RxNorm: 158889 Take 1 Capsule(s) Oral QHS every night at bedtime 07/05/19 24 024 Inactive pregabalin 150 mg capsule RxNorm: 359338 Take 1 Capsule(s) Oral QHS every night at bedtime 07/05/19 24 024 Inactive polyethylene glycol 3350 17 gram/dose oral powder RxNorm: 174552 Take 1 Packet Oral QD as needed (1 packet = 17g) mix with 4-8oz of liquid 06/15/19 24 024 Inactive bisacodyl 10 mg rectal suppository RxNorm: 772434 Insert one suppository per rectum once daily as needed for constipation 06/15/19 24 024 Inactive bisacodyl 10 mg rectal suppository RxNorm: 184311 Insert one suppository per rectum once daily as needed for constipation 06/15/19 24 024 Inactive pregabalin 100 mg capsule RxNorm: 737422 Take 1 Capsule(s) Oral QAM every morning 04/27/20 23 024 Inactive Levemir FlexPen 100 unit/mL (3 mL) solution subcutaneous insulin pen RxNorm: 958644 Inject 30 Unit(s) Subcutaneous BID 04/27/20 23 024 Inactive rosuvastatin 40 mg tablet RxNorm: 854816 Take 1 Tablet(s) Oral QPM every evening 04/16/20 23 024 Inactive D/C rosuvastatin 20mg venlafaxine ER 75 mg capsule,extended release 24 hr RxNorm: 909673 Take 3 Capsule(s) Oral QD 04/14/20 23 023 Inactive pregabalin 100 mg capsule RxNorm: 536884 Take 1 Capsule(s) Oral QAM every morning [...] strip clotrimazole 1 % topical cream RxNorm: 560923 Take apply topically to abdominal folds twice daily for 14 days 03/12/20 23 024 Inactive Ozempic 1 mg/dose (4 mg/3 mL) subcutaneous pen injector RxNorm: 0339050 Inject 1 Milligram(s) Subcutaneous QW once a week 03/11/20 23 023 Inactive rosuvastatin 20 mg tablet RxNorm: 428220 Take 1 Tablet(s) Oral QD 02/26/20 23 023 Inactive d/c pravastatin 80mg Ozempic 1 mg/dose (4 mg/3 mL) subcutaneous pen injector RxNorm: 0760878 Inject 1 Milligram(s) Subcutaneous QW once a week 02/20/20 23 023 Inactive pregabalin 150 mg capsule RxNorm: 651581 Take 1 Capsule(s) Oral HS at bed time 02/19/20 23 023 Inactive pregabalin 100 mg capsule RxNorm: 553766 Take 1 Capsule(s) Oral QAM every morning 02/18/20 23 023 Inactive venlafaxine ER 75 mg capsule,extended release 24 hr RxNorm: 043583 Take 3 Capsule(s) Oral QD 02/04/20 23 023 Inactive FreeStyle Chema 2 Sensor kit RxNorm: use as directed 02/04/20 23 023 Inactive FreeStyle Chema 2 Sensor kit RxNorm: use as directed 02/04/20 23 024 Inactive fluconazole 150 mg tablet RxNorm: 657371 Take 1 Tablet(s) Oral on day 3 and on day 6 02/03/20 024 Inactive venlafaxine ER 150 mg capsule,extended release 24 hr RxNorm: 915835 Take 1 Capsule(s) Oral QD 02/03/20 023 Inactive chlorthalidone 25 mg tablet RxNorm: 646392 Take 1 Tablet(s) Oral QAM every morning 02/03/20 024 Inactive acetaminophen 500 mg tablet RxNorm: 363838 1 TABLET ORALLY 3 TIMES DAILY (MAX APAP:4GM/24HR) 12/15/19 23 023 Inactive clotrimazole 1 % topical cream RxNorm: 838966 apply 1g topically to top of feet and in between toes BID 12/09/19 23 025 Inactive potassium chloride ER 20 mEq tablet,extended release RxNorm: 928102 Take 1 Tablet(s) Oral BID 12/09/19 024 Inactive d/c 20mEq once daily (sent from hospital) nystatin 100,000 unit/gram topical powder RxNorm: 308903 APPLY TO AFFECTED AREAS TOPICALLY 2 TIMES DAILY 11/21/19 23 023 Inactive Nystop 100,000 unit/gram topical powder RxNorm: 187433 Apply to abd folds, under breasts and L side of groin Topical BID x 14 days, then BID PRN 11/20/19 23 023 Inactive dx: yeast dermatitis [place] Ultra Strength 4 %-30 %-10 % topical cream RxNorm: 763739 Apply 1 Gram(s) Topical QID PRN to feet and legs for neuropathic pain 11/11/19 23 024 Inactive clotrimazole 1 % topical cream RxNorm: 450868 Apply 1/2 Gram(s) Topical BID Apply to affected areas of groin, periarea, and abdominal topically 2 times daily 11/10/19 23 023 Inactive hydrocortisone 2.5 % topical cream RxNorm: 144820 Apply 1/2 Gram(s) Topical BID as needed 11/10/19 23 024 Inactive Levemir FlexPen 100 unit/mL (3 mL) solution subcutaneous insulin pen RxNorm: 692505 Inject 30 Unit(s) Subcutaneous BID 10/07/19 23 023 Inactive Humulin R U-500 (Concentrated) Insulin 500 unit/mL subcutaneous soln RxNorm: 361773 Inject 100 Unit(s) Subcutaneous TID 10/07/19 23 024 Inactive Ozempic 0.25 mg or 0.5 mg (2 mg/3 mL) subcutaneous pen injector RxNorm: 1755660 Inject 1/2 Milligram(s) Subcutaneous QW once a week 10/07/19 23 024 Inactive aripiprazole 15 mg tablet RxNorm: 868900 1/2 TAB (7.5MG) ORALLY DAILY (DX:MAJOR DEPRESSIVE DISORDER) 09/23/19 23 023 Inactive Accu-Chek Guide test strips RxNorm: Use 1 Test Strip QID 09/15/19 23 023 Inactive ok to substitute with any covered alternative test strip Lancets,Thin 28 gauge RxNorm: Use 1 as directed QID 09/15/19 23 023 Inactive torsemide 20 mg tablet RxNorm: 575083 Take 1 Tablet(s) Oral BID 09/09/19 024 Inactive d/c once daily dosing carvedilol 25 mg tablet RxNorm: 378245 Take 1 Tablet(s) Oral QD 08/25/19 23 024 Inactive pregabalin 150 mg capsule RxNorm: 545658 1 Capsule(s) Oral HS at bed time 08/18/19 023 Inactive pregabalin 100 mg capsule RxNorm: 805089 1 Capsule(s) Oral QAM every morning 08/18/19 023 Inactive carvedilol 25 mg tablet RxNorm: 961524 1 Tablet(s) Oral QD 07/28/19 23 023 Inactive lisinopril 20 mg tablet RxNorm: 476045 Give 1 Tablet(s) Oral QD 07/28/19 23 023 Inactive Lyrica 150 mg capsule RxNorm: 090062 Take 1 Capsule(s) Oral QHS every night at bedtime 07/19/19 23 023 Inactive d/c 100mg dose Diflucan 150 mg tablet RxNorm: 564822 Take 1 Tablet(s) Oral QD repeat on day 3 and 6 07/19/19 23 023 Inactive pregabalin 100 mg capsule RxNorm: 421606 Take 1 Capsule(s) Oral QAM every morning 07/19/19 23 023 Inactive gatifloxacin 0.5 % eye drops RxNorm: 441657 Instill 1 Drop(s) as directed TID Instill 1 drop in to affected eye(s) starting 1 day prior to surgery and continue until gone (do not exceed 4 weeks). 07/13/19 23 023 Inactive carvedilol 25 mg tablet RxNorm: 917247 2 Tablet(s) Oral BID 07/13/19 23 023 Inactive Humulin R Regular U-100 Insulin 100 unit/mL injection solution RxNorm: 594767 85 Unit(s) Injection TID 07/13/19 23 023 Inactive ketorolac 0.5 % eye drops RxNorm: 084810 Instill 1 Drop(s) as directed QID Instill 1 drop into affected eye(s) 4 times daily starting 1 day prior to surgery and continue until gone (do not exceed 4 weeks). 07/13/19 23 023 Inactive Diflucan 150 mg tablet RxNorm: 831329 Take 1 Tablet(s) Oral QD repeat on day 3 and 6 06/30/19 23 023 Inactive Accu-Chek Guide test strips RxNorm: Use 1 Test Strip QID Use 1 test strip to monitor blood glucose 4 times daily and as needed. Dx:E11.42. 06/23/19 23 023 Inactive ok to substitute with any covered alternative test strip dextromethorphan-gu aifenesin 10 mg-100 mg/5 mL oral liquid RxNorm: 809102 Take 10 Milliliter(s) Oral every 4 hours as needed for cough 06/19/19 23 023 Inactive dextromethorphan-gu aifenesin 10 mg-100 mg/5 mL oral liquid RxNorm: 257321 Take 10 Milliliter(s) Oral every 4 hours as needed for cough 06/19/19 023 Inactive Lyrica 150 mg capsule RxNorm: 145259 Take 1 Capsule(s) Oral QHS every night at bedtime 06/18/19 023 Inactive d/c 100mg dose aripiprazole 15 mg tablet RxNorm: 211544 /2 TAB (7.5MG) ORALLY DAILY (DX:MAJOR DEPRESSIVE DISORDER) 06/05/19 023 Inactive pregabalin 100 mg capsule RxNorm: 794019 1 Capsule(s) Oral QAM every morning 06/02/19 023 Inactive Banophen 50 mg capsule RxNorm: 9038842 Take 1 Capsule(s) Oral Q6H every 6 hours as needed 05/19/19 No Stop Date Active Novolog Flexpen U-100 Insulin aspart 100 unit/mL (3 mL) subcutaneous RxNorm: 7338768 Inject 10 Unit(s) Subcutaneous QHS every night at bedtime with nighttime snack 04/08/20 022 Inactive Novolog Flexpen U-100 Insulin aspart 100 unit/mL (3 mL) subcutaneous RxNorm: 0571594 Inject 42 Unit(s) Subcutaneous TID in addition to sliding scale 04/08/20 022 Inactive d/c 36u albuterol sulfate HFA 90 mcg/actuation aerosol inhaler RxNorm: 2808370 Take 2 Puff(s) Inhalation Q4H every four hours as needed as needed for SOB, cough, or wheezing 04/07/20 030 Active Banophen 50 mg capsule RxNorm: 5080978 Take 1 Capsule(s) Oral Q6H every 6 hours as needed 04/06/20 023 Inactive diphenhydramine 50 mg tablet RxNorm: 5396795 Take 1 Tablet(s) Oral Q6H every 6 hours as needed 04/06/20 022 Inactive diphenhydramine 50 mg tablet RxNorm: 2609078 1 Tablet(s) Oral Q6H every 6 hours as needed 04/06/20 022 Inactive Abilify 15 mg tablet RxNorm: 295698 1/2 Tablet(s) Oral QD 03/10/20 22 023 Inactive Shingrix (PF) 50 mcg/0.5 mL intramuscular suspension, kit RxNorm: 1282587 Administer 1/2 Milliliter(s) Intramuscular QD one time shingrix step 2 ( step 1 given 11/04/21) WITH needle - Nursing please administer upon arrival and once administered post a bridge message with date of administration, 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, expiration date, and lot# so we can update [facility] 02/18/20 22 022 Inactive dispense with needle Shingrix (PF) 50 mcg/0.5 mL intramuscular suspension, kit RxNorm: 4482275 Administer 1/2 Milliliter(s) Intramuscular QD one time shingrix step 2 ( step 1 given 11/04/21) WITH needle - Nursing please administer upon arrival and once administered post a bridge message with date of administration, 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, expiration date, and lot# so we can update [facility] 02/18/20 22 022 Inactive dispense with needle polyethylene glycol 3350 17 gram/dose oral powder RxNorm: 166539 Take 17=1 capful Gram(s) Oral QD mix with 4-8oz of liquid 01/08/20 22 025 Inactive take this in addition to BID prn order Lyrica 100 mg capsule RxNorm: 004787 Take 1 Capsule(s) Oral QAM every morning 01/08/20 22 022 Inactive d/c 50mg dose acetaminophen 500 mg tablet RxNorm: 139389 Take 1 Tablet(s) Oral TID 01/08/20 22 022 Inactive d/c PRN order Lyrica 150 mg capsule RxNorm: 176405 Take 1 Capsule(s) Oral QHS every night at bedtime 01/08/20 22 023 Inactive d/c 100mg dose Abilify 5 mg tablet RxNorm: 058038 Take 1 Tablet(s) Oral QD take 1 tab po QD #30 refill 5 dx: MDD 12/12/19 22 022 Inactive Abilify 5 mg tablet RxNorm: 101362 Take 1 Tablet(s) Oral QD take 1 tab po QD #30 refill 5 dx: MDD 12/12/19 22 022 Inactive Novolog Flexpen U-100 Insulin aspart 100 unit/mL (3 mL) subcutaneous RxNorm: 2726131 Inject 42 Unit(s) Subcutaneous TID in addition to sliding scale 12/10/19 22 022 Inactive d/c 36u chlorthalidone 25 mg tablet RxNorm: 062076 Take 1 Tablet(s) Oral QAM every morning 12/10/19 22 023 Inactive pregabalin 50 mg capsule RxNorm: 856287 Take 1 Capsule(s) Oral QAM every morning 11/12/19 22 022 Inactive tetanus-diphtheria toxoids-Td 2 Lf unit-2 Lf unit/0.5 mL IM suspension RxNorm: 139 Take 0.5 Miscellaneous Intramuscular 11/12/19 22 022 Inactive need tdap - nursing to administer upon arrival pregabalin 50 mg capsule RxNorm: 678638 Take 1 Capsule(s) Oral QAM every morning 10/16/19 022 Inactive pregabalin 50 mg capsule RxNorm: 614335 Take 1 Capsule(s) Oral QAM every morning 10/16/19 22 022 Inactive pregabalin 50 mg capsule RxNorm: 788552 1 Capsule(s) Oral QAM every morning 10/15/19 22 022 Inactive Shingrix (PF) 50 mcg/0.5 mL intramuscular suspension, kit RxNorm: 6489692 Administer 1/2 Milliliter(s) Intramuscular one time Nursing please administer upon arrival and once administered post a bridge message with date of administration, 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, expiration date, and lot# so we [...] aspart 100 unit/mL (3 mL) subcutaneous RxNorm: 5552154 Inject 10 Unit(s) Subcutaneous QHS every night at bedtime with nighttime snack 10/08/19 22 Inactive Shingrix (PF) 50 mcg/0.5 mL intramuscular suspension, kit RxNorm: 4322627 ADMINISTER 2-DOSE SERIES PER CDC GUIDELINES 10/08/19 22 Active Shingrix (PF) 50 mcg/0.5 mL intramuscular suspension, kit RxNorm: 9302651 ADMINISTER 2-DOSE SERIES PER CDC GUIDELINES 10/08/19 22 Inactive Novolog Flexpen U-100 Insulin aspart 100 unit/mL (3 mL) subcutaneous RxNorm: 6010538 Inject 36 Unit(s) Subcutaneous TID in addition to sliding scale 10/08/19 22 Inactive cholecalciferol (vitamin D3) 1,250 mcg (50,000 unit) capsule RxNorm: 826253 Take 1 Capsule(s) Oral QW once a week 10/08/19 Inactive Novofine Autocover 30 gauge x 1/3 needle RxNorm: Use 1 Miscellaneous UD as directed Use 1 needle as directed to administer insulin 5 times a day Dx:E11.42. 10/03/19 Inactive ok to substitute with any covered alternative pen needle benzoyl peroxide 10 % topical cleanser RxNorm: 708471 Apply 1 Application Topical QD apply to face, wash rinse and dry once daily (may change to QOD if drying) 08/19/19 22 022 Inactive (%covered by insurance) #60ml refill 11 dx: acne benzoyl peroxide 10 % topical cleanser RxNorm: 223097 Apply 1 Application Topical QD apply to face, wash rinse and dry once daily (may change to QOD if drying) 08/19/19 22 022 Inactive (%covered by insurance) #60ml refill 11 dx: acne benzoyl peroxide 10 % topical cleanser RxNorm: 754087 Apply 1 Application Topical QD apply to face, wash rinse and dry once daily (may change to QOD if drying) 08/19/19 22 022 Inactive (%covered by insurance) #60ml refill 11 dx: acne Lyrica 50 mg capsule RxNorm: 318956 Take 1 Capsule(s) Oral QAM every morning Take 1 capsule by mouth once daily 08/19/19 22 022 Inactive benzoyl peroxide 10 % topical cleanser RxNorm: 743307 Apply 1 Application Topical QD apply to face, wash rinse and dry once daily (may change to QOD if drying) 08/19/19 22 022 Inactive (%covered by insurance) #60ml refill 11 dx: acne Lyrica 100 mg capsule RxNorm: 334827 Take 1 Capsule(s) Oral QHS every night at bedtime Take 1 capsule by mouth once daily at bedtime 08/19/19 22 Inactive Lyrica 100 mg capsule RxNorm: 710400 Take 1 Capsule(s) Oral QHS every night at bedtime Take 1 capsule by mouth once daily at bedtime 08/16/19 22 Inactive Lyrica 50 mg capsule RxNorm: 436427 Take 1 Capsule(s) Oral QAM every morning Take 1 capsule by mouth once daily 08/16/19 22 Inactive Levemir FlexTouch U-100 Insulin 100 unit/mL (3 mL) subcutaneous pen RxNorm: 006806 Inject 86 Unit(s) Subcutaneous BID 08/05/19 22 Inactive d/c 83units BID Lyrica 100 mg capsule RxNorm: 020715 Take 1 Capsule(s) Oral QHS every night at bedtime Take 1 capsule by mouth once daily at bedtime 07/14/19 22 022 Inactive Lyrica 50 mg capsule RxNorm: 949913 Take 1 Capsule(s) Oral QAM every morning Take 1 capsule by mouth once daily 07/14/19 22 Inactive Levemir FlexTouch U-100 Insulin 100 unit/mL (3 mL) subcutaneous pen RxNorm: 387412 Inject 83 Unit(s) Subcutaneous BID 07/08/19 22 [...] test strip hydralazine 50 mg tablet RxNorm: 577513 Take 1 Tablet(s) Oral QID 05/05/20 21 Inactive venlafaxine ER 225 mg tablet,extended release 24 hr RxNorm: 792395 Take 1 Tablet(s) Oral QD 05/05/20 21 Inactive venlafaxine ER 225 mg tablet,extended release 24 hr RxNorm: 090086 Take 1 Tablet(s) Oral QD 05/05/20 022 Inactive isosorbide mononitrate ER 30 mg tablet,extended release 24 hr RxNorm: 442641 Take 1 Tablet(s) Oral QD 05/05/20 024 Inactive hydralazine 50 mg tablet RxNorm: 995858 Take 1 Tablet(s) Oral QID 05/05/20 21 021 Inactive aspirin 81 mg tablet,delayed release RxNorm: 406009 Take 1 Tablet(s) Oral QD 03/31/20 Inactive Vitamin D2 1,250 mcg (50,000 unit) capsule RxNorm: 3531000 Take 1 Capsule(s) Oral QW once a week x 12 weeks 03/31/20 Inactive Vitamin D2 1,250 mcg (50,000 unit) capsule RxNorm: 3484106 Take 1 Capsule(s) Oral QW once a week 03/31/20 Inactive Zetia 10 mg tablet RxNorm: 448838 Take 1 Tablet(s) Oral QD 03/31/20 024 Inactive Zetia 10 mg tablet RxNorm: 741710 Take 1 Tablet(s) Oral QD 03/31/20 021 Inactive hydralazine 25 mg tablet RxNorm: 305025 Take 1 Tablet(s) Oral QID 03/31/20 21 021 Inactive hydralazine 25 mg tablet RxNorm: 192556 Take 1 Tablet(s) Oral QID 03/31/20 021 Inactive hydralazine 10 mg tablet RxNorm: 273676 Take 1 Tablet(s) Oral QID 03/03/20 21 021 Inactive cephalexin 500 mg tablet RxNorm: 640829 Take 1 Tablet(s) Oral QID 02/27/20 021 Inactive cephalexin 500 mg tablet RxNorm: 581213 Take 1 Tablet(s) Oral QID 02/27/20 21 021 Inactive lisinopril 40 mg tablet RxNorm: 641245 Take 1 Tablet(s) Oral QD 02/11/20 21 023 Inactive Eliquis 5 mg tablet RxNorm: 3529091 Take 1 Tablet(s) Oral BID 01/05/20 21 025 Inactive Eliquis 5 mg tablet RxNorm: 6475783 Take 2 Tablet(s) Oral QD 01/01/20 21 021 Inactive Lyrica 50 mg capsule RxNorm: 894741 Take 1 Capsule(s) Oral QAM every morning 12/24/19 21 021 Inactive Lyrica 100 mg capsule RxNorm: 463755 Take 1 Capsule(s) Oral QHS every night at bedtime 12/24/19 021 Inactive clotrimazole 1 % topical cream RxNorm: 472562 Apply to right foot and toes Topical BID 12/04/19 21 023 Inactive metoprolol succinate ER 200 mg tablet,extended release 24 hr RxNorm: 475069 Take 1 Tablet(s) Oral QD 12/04/19 21 023 Inactive ciprofloxacin 500 mg tablet RxNorm: 759409 Take 1 Tablet(s) Oral QD 11/30/19 21 021 Inactive DX ofloxacin otic drops Accu-Chek Guide test strips RxNorm: USE 1 TO CHECK GLUCOSE 4 TIMES DAILY AND NEEDED 11/15/19 21 023 Inactive Blood Glucose Test strips RxNorm: Use 1 Test Strip QID at PRN 11/05/19 21 023 Inactive E11.42 lisinopril 30 mg tablet RxNorm: 619430 Take 1 Tablet(s) Oral QD 10/30/19 021 Inactive lisinopril 20 mg tablet RxNorm: 406537 Take 1 Tablet(s) Oral QD 10/23/19 21 021 Inactive lisinopril 20 mg tablet RxNorm: 553966 Take 1 Tablet(s) Oral QD 10/23/19 21 021 Inactive lisinopril 10 mg tablet RxNorm: 486928 Take 1 Tablet(s) Oral QD 10/02/19 21 021 Inactive icosapent ethyl 1 gram capsule RxNorm: 5427684 Take 2 Capsule(s) (2 gm) Oral BID with meals 09/12/19 21 024 Inactive Okay to dispense one 2gm tab if you have that available. icosapent ethyl 1 gram capsule RxNorm: 9962752 Take 2 Capsule(s) Oral BID 09/12/19 21 021 Inactive Okay to dispense one 2gm tab if you have that available. amlodipine 10 mg tablet RxNorm: 398209 Take 1 Tablet(s) Oral QD 09/04/19 21 021 Inactive aspirin 81 mg tablet,delayed release RxNorm: 689897 Take 1 Tablet(s) Oral QD 09/04/19 21 021 Inactive Levemir FlexTouch U-100 Insulin 100 unit/mL (3 mL) subcutaneous pen RxNorm: 680218 Inject 150 Unit(s) Subcutaneous BID 09/04/19 21 022 Inactive venlafaxine ER 150 mg tablet,extended release 24 hr RxNorm: 065489 Take 1 Tablet(s) Oral QD 09/04/19 21 021 Inactive clotrimazole-betame thasone 1 %-0.05 % topical cream RxNorm: 289771 Apply to rash on red area on left abdomen/chest Topical BID 08/10/19 21 021 Inactive amlodipine 5 mg tablet RxNorm: 492494 Take 1 Tablet(s) Oral QD 07/31/19 21 021 Inactive cephalexin 500 mg tablet RxNorm: 468523 Take 1 Tablet(s) Oral BID BID - Twice Daily 07/31/19 21 021 Inactive Start 08/01/20 pantoprazole 40 mg tablet,delayed release RxNorm: 358180 Take 1 Tablet(s) Oral QAM every morning 07/08/19 21 025 Inactive senna 8.6 mg tablet RxNorm: 136453 Take 1 Tablet(s) Oral QD 07/08/19 21 025 Inactive carbamazepine 200 mg tablet RxNorm: 571687 Take 1 Tablet(s) Oral BID 07/08/19 21 025 Inactive clopidogrel 75 mg tablet RxNorm: 755684 Take 1 Tablet(s) Oral QD 07/08/19 021 Inactive Blood Glucose Test strips RxNorm: Use 1 Test Strip QID at PRN 07/08/19 21 021 Inactive E11.42 Novolog Flexpen U-100 Insulin aspart 100 unit/mL (3 mL) subcutaneous RxNorm: 4970129 Administer per sliding scale Milliliter(s) Subcutaneous TID 151-200: 10 u; 201-250: 20 u; 251-300: 30 u; 301-350: 40 u; 351-400: 50 u. 07/08/19 21 022 Inactive lisinopril 5 mg tablet RxNorm: 836836 Take 1 Tablet(s) Oral QD 07/08/19 021 Inactive Novolog Flexpen U-100 Insulin aspart 100 unit/mL (3 mL) subcutaneous RxNorm: 6902368 Inject 85 Unit(s) Subcutaneous TID 07/08/19 022 Inactive pravastatin 80 mg tablet RxNorm: 920681 Take 1 Tablet(s) Oral QHS every night at bedtime 07/08/19 023 Inactive clotrimazole 1 % topical cream RxNorm: 846858 Apply to bilateral groin areas Topical BID 07/08/19 21 022 Inactive metoprolol succinate ER 200 mg tablet,extended release 24 hr RxNorm: 019642 Take 1 Tablet(s) Oral QD 07/08/19 21 021 Inactive Vitamin D3 25 mcg (1,000 unit) tablet RxNorm: 057031 Take 1 Tablet(s) Oral QD 07/08/19 021 Inactive isosorbide dinitrate 30 mg tablet RxNorm: 099989 Take 1 Tablet(s) Oral QD 07/08/19 021 Inactive Levemir FlexTouch U-100 Insulin 100 unit/mL (3 mL) subcutaneous pen RxNorm: 482690 Inject 140 Unit(s) Subcutaneous BID 07/08/19 021 Inactive torsemide 20 mg tablet RxNorm: 020444 Take 1 Tablet(s) Oral QD 07/08/19 21 023 Inactive venlafaxine 75 mg tablet RxNorm: 784533 Take 1 Tablet(s) Oral QD 07/08/19 21 021 Inactive acetaminophen 500 mg tablet RxNorm: 508809 Take 1 Tablet(s) Oral TID as needed for headache 06/18/19 21 021 Inactive acetaminophen 500 mg tablet RxNorm: 697303 Take 1 Tablet(s) Oral TID as needed for headache 06/18/19 21 021 Inactive Lyrica 100 mg capsule RxNorm: 824433 Take 1 Capsule(s) Oral QHS every night at bedtime 06/11/19 21 021 Inactive Lyrica 50 mg capsule RxNorm: 808723 Take 1 Capsule(s) Oral QAM every morning 06/10/19 21 021 Inactive hydrocortisone 2.5 % topical cream RxNorm: 054713 Apply to bilateral groin creases Topical BID 05/15/20 20 021 Inactive clotrimazole 1 % topical cream RxNorm: 752389 Apply to bilateral groin areas Topical BID 05/15/20 20 021 Inactive Lyrica 50 mg capsule RxNorm: 999731 Take 1 Capsule(s) Oral QAM every morning 05/14/20 20 020 Inactive Lyrica 100 mg capsule RxNorm: 065974 Take 1 Capsule(s) Oral QHS every night [...] Inactive Nystop 100,000 unit/gram topical powder RxNorm: 162282 Apply to abd folds, under breasts and L side of groin Topical BID x 14 days, then BID PRN 04/08/20 20 Inactive dx: yeast dermatitis Lyrica 100 mg capsule RxNorm: 368495 Take 1 Capsule(s) Oral QHS every night at bedtime 03/13/20 20 Inactive Lyrica 50 mg capsule RxNorm: 626089 Take 1 Capsule(s) Oral QAM every morning 03/13/20 20 Inactive ketoconazole 2 % shampoo RxNorm: 931926 Apply Topical two times a week with showers 03/11/20 20 024 Inactive cholecalciferol (vitamin D3) 50 mcg (2,000 unit) tablet RxNorm: 456118 Take 1 Tablet(s) Oral QD 03/11/20 20 021 Inactive Zetia 10 mg tablet RxNorm: 172342 Take 1 Tablet(s) Oral QD 03/07/20 20 021 Inactive Zetia 10 mg tablet RxNorm: 986515 Take 1 Tablet(s) Oral QD 03/07/20 20 020 Inactive Lyrica 50 mg capsule RxNorm: 379734 Take 1 Capsule(s) Oral QAM every morning 02/15/20 20 020 Inactive Lyrica 100 mg capsule RxNorm: 026163 Take 1 Capsule(s) Oral QHS every night at bedtime 02/15/20 20 Inactive Lyrica 100 mg capsule RxNorm: 620341 Take 1 Capsule(s) Oral QHS every night at bedtime 02/15/20 20 020 Inactive Lyrica 50 mg capsule RxNorm: 148680 Take 1 Capsule(s) Oral QAM every morning 02/15/20 20 Inactive metoprolol succinate ER 200 mg tablet,extended release 24 hr RxNorm: 646497 Take 1 Tablet(s) Oral QD 08/12/19 23 025 Inactive loperamide 2 mg capsule RxNorm: 682817 Take 1 Capsule(s) Oral QID as needed 09/06/19 025 Inactive hydralazine 50 mg tablet RxNorm: 283115 Take 1 Tablet(s) Oral QID 08/12/19 025 Inactive Soft Touch Lancets RxNorm: miscellaneous 03/04/20 24 025 Inactive venlafaxine ER 75 mg capsule,extended release 24 hr RxNorm: 019147 Take 3 Capsule(s) Oral QD 06/12/19 22 023 Inactive polyethylene glycol 3350 17 gram/dose oral powder RxNorm: 323002 Take 17=1 capful Gram(s) Oral BID as needed mix with 4-8oz of liquid 06/12/19 024 Inactive icosapent ethyl 1 gram capsule RxNorm: 8730928 Take 2 Capsule(s) (2 gm) Oral BID with meals 10/07/19 23 023 Inactive Okay to dispense one 2gm tab if you have that available. Levemir FlexTouch U-100 Insulin 100 unit/mL (3 mL) subcutaneous pen RxNorm: 649127 Inject 80 Unit(s) Subcutaneous BID 07/14/19 023 Inactive Novolog Flexpen U-100 Insulin aspart 100 unit/mL (3 mL) subcutaneous RxNorm: 5004962 Insert 30 Unit(s) Subcutaneous TID with meals [...] Planned Activity Notes Codes Status Date Referral: [id number] [facility]ReferralAppointment Jxeutxeep35/06/2025Referral: [facility]/Endocrinology WPtel: [address] [place] [address] 3 [id number] USReferralNo Records Usnmhvsz43/24/2025Patient Education: Patient Medication WfldhqiSuklxczoo35/20/2025ppointment: Harrison Munson WPtel: [address] [facility]02/08/2024ppointment: Harrison Munson WPtel: [address] [place]/U001/11/2024ppointment: aSndra Clark WPtel: [address] [facility] 300 [id number] [facility] Follow Up12/09/2022ppointment: Casper Rosalina WPtel: [address] [facility] 300 [id number] USTCM10/26/2022Referral: [facility] [address] [facility] [address] [id number] USReferralRecords Uctjifnn45/08/2023ppointment: Rosalina Shirley WPtel: [address] [facility] 300 [id number] [place]/U008/11/2022ppointment: Rosalina Shirley WPtel: [address] [facility] 300 [id number] USF/U007/14/2022ppointment: Rosalina Shirley WPtel: [address] [facility] 300 [id number] [place]/U02Referral: [facility] WPtel: [address] [facility] [address] [id number] VPJjxfcekjDsnawrltf78/12/2022Referral: General CardiologyReferralCompleted 1Referral: General PsychologistReferralClosedReferral: General PsychiatristReferralPatient/Family [...] the [facility] to have closer nursing attention. Sister Jyotsna involved in his care cell# [phone] Guardian: Giulia middleton met in person 09/01/21), now has [...] appointment 05.26.2024 with Jessa Webster MD at [facility]. Start Pioglitazone 15 mg QD. Stop Basaglar insulin. Increase Ozempic 2 mg once wkly. Continue Humalin R U-500 100 units with meals TID. FOLLOW UP 2 MONTHS. If BG >400 add 50 units to next scheduled dose of Humalin R U 500 insulin 06/12/2024
--- OUTSIDE RECORDS SUMMARY | 2024-10-19 18:14 | XMS_ITS | CCD ---
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 Marketing Project Specialist Name Role Phone Harrison Durham Primary Care Provider Leona vailable Unavailable Chronic Care Management Unavaila ble Summary Purpose DataExchange Insurance Providers Payer name Policy type / Coverage type Covered democrat ID Effective Begin Date Effective End Date [place] Part B [id number] Unknown Unknown Medicaid [place] Medicare Part B [id number] Unknown Unknown Family history Sister Brittany Suggs [...] on file 07/11/[address]: 032928144 Never smoker 01/16 Sexually Active? Unknown No [...] Single 10/07/2021 Living arrangements Unknown Halfway 09/03/[address]: 586374839 No Alcohol Consum ption 09/02/2020 Allergies, Adverse Reactions, Alerts Substance Reaction Codes Entered Date Inactivated Date Status * NO KNOWN FOOD ALLERGIES Snjdulo8407/13/2023No Inactive DateActiveLISINOPRILRxNorm: 553663802/12/2020No Inactive DateActiveMetformin SJhRwfxqtd61/28/2020No Inactive DateActive* NO KNOWN ENVIRONMENTAL LPUTUHZXOFevulea20/27/2024No Inactive DateActive Problems Condition Codes Effective Dates Condition St atus Constipation by delayed colonic transit ICD-10: K59.01 ICD-9: 564.01045ActiveHypokalemiaICD-10: E87.6 ICD-9: 276.804/5ActiveLoose stoolsSNOMED CT: 562812826 ICD-10: R19.5 ICD-9: 787.7045ActiveStage 2 chronic 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ICD-10: E11. ICD-9: 250.40045ActiveType 2 diabetes mellitus with diabetic polyneuropathy, with long-term current use of insulinICD-10: E11.42 ICD-9: 250.60045ActiveBody mass index [BMI] 60.0-69.9, adultSNOMED CT: 300790542 ICD-10: Z68.44 ICD-9: V85.4405ActiveMixed incontinenceSNOMED CT: 48601865 ICD-10: N39.46 ICD-9: 788.33035ActiveDiabetic neuropathy associated with type 2 diabetes mellitusICD-10: E11.40 ICD-9: 250.60025ActiveHemorrhoidsICD-10: K64.9 ICD-9: 455.6025ActiveLower extremity edemaICD-10: R60.0 ICD-9: 782.3025ActivePVD (peripheral vascular disease)ICD-10: I73.9 ICD-9: 443.9025ActiveCandidal intertrigoICD-10: B37.2 ICD-9: 112.3015ActiveHyperlipidemia associated with type 2 diabetes mellitusICD-10: E11.69 ICD-9: 250.8001/5ActiveHypertensive heart disease without heart failure ICD-10: I11.9 ICD-9: 402.9001/5ActiveOnychogryposisICD-10: L60.2 ICD-9: 703.8015ActiveAdvance care planningICD-10: Z71.89 ICD-9: V65.4912/4ActiveLow back painICD-10: M54.50 ICD-9: 724.210/ctiveParaparesis of both lower limbsICD-10: G82.20 ICD-9: 344.110/ctivePhysical deconditioningICD-10: R53.81 ICD-9: 799.310/ctiveAdvanced care planning - to document end of life qydtixswgnhKwwtqad50ctiveAmputated toe of right footICD-10: S98.131A ICD-9: 895.009ctiveAnnual physical examICD-10: Z00.00 ICD-9: V70.009ctiveHistory of anemia due to CKDICD-10: N18.9 ICD-9: 585.909/ctiveHx of deep venous thrombosisICD-10: Z86.718 ICD-9: V12.5109/ctiveHypercoagulable stateICD-10: D68.59 ICD-9: 289.8109/ctiveLearning disabilityICD-10: F81.9 ICD-9: 315.209/ctiveMajor depression, recurrentICD-10: F33.9 ICD-9: 296.3009/ctivePressure ulcer of left calf, unstageableICD-10: L89.890 ICD-9: 707.0909/ctiveReducible umbilical herniaICD-10: K42.9 ICD-9: 553.109/ctiveSeizure disorderICD-10: G40.909 ICD-9: 345.9009/ctiveVitamin D deficiencyICD-10: E55.9 ICD-9: 268.909/ctiveCallus of heelICD-10: L84 ICD-9: 41454/esolvedGout due to renal impairmentICD-10: M10.30 ICD-9: 274.1005/esolvedHyperhidrosis of palmsICD-10: L74.512 ICD-9: 705.2105/esolvedHyperlipidemia, unspecifiedICD-10: E78.5 ICD-9: 272.405/esolvedOther buttermaker (current) drug therapyICD-10: Z79.899 ICD-9: V58.6905esolvedPain of right heelICD-10: M79.671 ICD-9: 729.505/esolvedStage 2 chronic kidney diseaseICD-10: N18.2 ICD-9: 585.205esolvedTinea pedis of both feetICD-10: B35.3 ICD-9: 110.405esolvedRecurrent major depressive disorder, in partial remissionICD-10: F33.41 ICD-9: 296.3504/4ActiveCellulitisICD-10: L03.90 ICD-9: 682.904/esolvedDandruff in adultICD-10: L21.0 ICD-9: 690.1804esolvedEncounter for other specified special examinationsICD-10: Z01.89 ICD-9: V72.8504esolvedEncounter for screening for nutritional disorder ICD-10: Z13.21 ICD-9: V77.9904/esolvedImpacted cerumen, left earICD-10: H61.22 ICD-9: 380.404/esolvedShortness of breathICD-10: R06.02 ICD-9: 786.0504/esolvedSkin tagICD-10: L91.8 ICD-9: 701.904esolvedCoronary artery disease involving [place] coronary artery of [place] heart, angina presence unspecifiedICD-10: I25.10 ICD-9: 414.0102/4ActiveInappropriate sexual behaviorICD-10: Z72.89 ICD-9: 312.8910/3ActivePre-op evaluationICD-10: Z01.818 ICD-9: V72.8403/ctiveSecondary hypertensionICD-10: I15.9 ICD-9: 405.9903/ctiveDepressionICD-10: F32.9 ICD-9: 30297/esolvedDVT (deep venous thrombosis)ICD-10: I82.409 ICD-9: 453.4009/esolvedEncounter for [...] to other viral communicable diseasesICD-10: Z20.828 ICD-9: V01.79027662LfakgmewLqszvwrtAbfopnf55/28/2020ActiveDiabetes mellitus Type 2Xzmycsu93/28/2020ActiveAnemia in chronic kidney diseaseICD-10: D63.1 02/12/2020ResolvedHyperlipidemia, unspecifiedICD-10: E78.509/28/2020Resolved Medications Medication Codes Instructions Start Date Stop Date Status Fill Instructions potassium chloride ER 20 mEq tablet,extended release RxNorm: 874321 Take 2 Tablet(s) Oral TID (dx: hypokalemia) 09/14/19 25 025 Inactive potassium chloride ER 20 mEq tablet,extended release RxNorm: 839141 Take 2 Tablet(s) Oral TID (dx: hypokalemia) 09/14/19 25 026 Active loperamide 2 mg tablet RxNorm: 733209 Take 2 Tablet(s) Oral UD as directed as needed 2 tabs after first loose stool then 1 tab after each subsequent stool PRN. Do not exceed 4 doses in 24 hours. Do not administer until after 3 loose stools. 09/06/19 No Stop Date Active Minerin Creme topical RxNorm: Apply 1 Application Topical QD as needed 09/06/19 No Stop Date Active senna 8.6 mg tablet RxNorm: 713743 Take 1 Tablet(s) Oral QD as needed and 1 tab BID prn 09/06/19 No Stop Date Active cyclobenzaprine 10 mg tablet RxNorm: 122905 Take 1 Tablet(s) Oral QHS every night at bedtime as needed 09/06/19 No Stop Date Active loperamide 2 mg tablet RxNorm: 797226 Take 2 Tablet(s) Oral UD as directed as needed 2 tabs after first loose stool then 1 tab after each subsequent stool PRN Do not exceed 4 doses in 24 hours. Do not administer until after 3 loose stools. 09/06/19 25 026 Active pioglitazone 15 mg tablet RxNorm: 956112 Take 1 Tablet(s) Oral QD 09/06/19 No Stop Date Active loperamide 2 mg tablet RxNorm: 214399 Take 2 Tablet(s) Oral UD as directed as needed 2 tabs after first loose stool then 1 tab after each subsequent stool PRN Do not exceed 4 doses in 24 hours. Do not administer until after 3 loose stools. 09/06/19 25 025 Inactive pregabalin 100 mg capsule RxNorm: 720266 1 CAPSULE BY MOUTH EVERY MORNING (DX: NEUROPATHY) 08/23/19 25 Active FACILITY IS REQUESTING REFILL. PRIOR RX HAS BEEN EXHAUSTED. THANK YOU. pregabalin 150 mg capsule RxNorm: 025332 1 CAPSULE BY MOUTH AT BEDTIME (DX: NEUROPATHY) 08/21/19 Active FACILITY IS REQUESTING A REFILL OF THIS MEDICATION, THANK YOU! senna 8.6 mg tablet RxNorm: 385441 Take 1 Tablet(s) Oral QD as needed for constipation on day 2 of no bowel movement 08/09/19 25 Inactive Miralax 17 gram/dose oral powder RxNorm: 627521 Administer 17 Gram(s) Oral QD as needed for constipation on day 3 of no bowel movement 08/09/19 Inactive senna 8.6 mg tablet RxNorm: 196447 Take 1 Tablet(s) Oral QD as needed for constipation on day 2 of no bowel movement 08/09/19 Inactive Miralax 17 gram/dose oral powder RxNorm: 798327 Administer 17 Gram(s) Oral QD as needed for constipation on day 3 of no bowel movement 08/09/19 Inactive pregabalin 100 mg capsule RxNorm: 737376 Take 1 Capsule(s) Oral QAM every morning 08/08/19 Inactive Accu-Chek Guide test strips RxNorm: Use 1 Test Strip TID to test blood glucose, Dx: E11.42 08/02/19 No Stop Date Active ok to substitute with any covered alternative test strip Lancets,Thin 28 gauge RxNorm: Use 1 as directed TID lancet, Dx: E11.42 08/02/19 No Stop Date Active Humulin R U-500 (Concentrated) Insulin 500 unit/mL subcutaneous soln RxNorm: 718189 Inject 100 Unit(s) Subcutaneous AC before meals Three times daily before meals. 07/24/19 25 025 Inactive ammonium lactate 12 % topical cream RxNorm: 842334 Apply 1 Application Topical BID 07/20/19 No Stop Date Active ezetimibe 10 mg tablet RxNorm: 626525 Take 1 Tablet(s) Oral QD 07/18/19 No Stop Date Active senna 8.6 mg tablet RxNorm: 618117 Take 1 Tablet(s) Oral QD 07/18/19 25 025 Inactive metoprolol succinate ER 200 mg tablet,extended release 24 hr RxNorm: 792881 Take 1 Tablet(s) Oral QD 06/19/19 25 No Stop Date Active pantoprazole 40 mg tablet,delayed release RxNorm: 171215 Take 1 Tablet(s) Oral QAM every morning 06/19/19 25 No Stop Date Active hydralazine 50 mg tablet RxNorm: 313714 Take 1 Tablet(s) Oral QID 06/19/19 25 No Stop Date Active carbamazepine 200 mg tablet RxNorm: 267270 Take 1 Tablet(s) Oral BID 06/19/19 25 No Stop Date Active amlodipine 10 mg tablet RxNorm: 860510 Take 1 Tablet(s) Oral QD 06/19/19 25 No Stop Date Active Eliquis 5 mg tablet RxNorm: 2486114 Take 1 Tablet(s) Oral BID 06/19/19 25 No Stop Date Active pen needle, diabetic 30 gauge x 3/16 RxNorm: Use 1 6 times per day w/insulin 06/14/19 25 026 Active pen needle, diabetic 30 gauge x 3/16 RxNorm: Use 1 needle 6 times per day w/insulin 06/14/19 25 025 Inactive nystatin 100,000 unit/gram topical powder RxNorm: 243576 Apply 1 Application Topical BID as needed abdominal/breast /groin folds 05/24/19 25 026 Active pregabalin 100 mg capsule RxNorm: 928845 Take 1 Capsule(s) Oral QAM every morning 05/22/19 25 025 Inactive nystatin 100,000 unit/gram topical powder RxNorm: 168478 Apply 1 Application Topical BID as needed abdominal/breast /groin folds 04/11/20 24 024 Inactive chlorthalidone 25 mg tablet RxNorm: 631471 Take 1 Tablet(s) Oral QAM every morning 04/06/20 24 No Stop Date Active pregabalin 150 mg capsule RxNorm: 511973 Take 1 Capsule(s) Oral QHS every night at bedtime 03/31/20 24 024 Inactive Vascepa 1 gram capsule RxNorm: 5932916 Take 2 Capsule(s) Oral BID 03/30/20 Active rosuvastatin 40 mg tablet RxNorm: 354241 1 TAB ORALLY EVERY EVENING (DX:CORONARY ARTERY DISEASE) 03/28/20 No Stop Date Active venlafaxine ER 75 mg capsule,extended release 24 hr RxNorm: 730247 3 CAPS (225MG) ORALLY DAILY (DX: MOOD DISORDER) 03/28/20 No Stop Date Active pregabalin 100 mg capsule RxNorm: 579307 Take 1 Capsule(s) Oral QAM every morning 03/20/20 Inactive cholecalciferol (vitamin D3) 1,250 mcg (50,000 unit) capsule RxNorm: 720982 Take 1 Capsule(s) Oral QW once a [...] Strip TID to test Blood glucose 03/08/20 024 Inactive ok to substitute with any covered alternative test strip Accu-Chek Guide test strips RxNorm: Use 1 Test Strip TID to test BS 03/08/20 Inactive ok to substitute with any covered alternative test strip Tusharagldestin MendenhallPen U-100 Insulin 100 unit/mL (3 mL) subcutaneous RxNorm: 0362305 Inject 40 Unit(s) Subcutaneous BID 03/07/20 24 025 Inactive Please dispense one month supply. Humulin R U-500 (Concentrated) Insulin 500 unit/mL subcutaneous soln RxNorm: 180330 Inject 100 Unit(s) Subcutaneous AC before meals [...] PRN) to be use with new Accu [place] meter 03/04/20 Inactive ok to substitute with any covered alternative test strip FreeStyle Chema 2 Sensor kit RxNorm: Use UD as directed 03/02/20 Inactive Pen Needle 30 gauge x 09/29 RxNorm: Pen(s) Use 1 needle as directed TID 03/02/20 Inactive nystatin 100,000 unit/gram topical powder RxNorm: 016283 Apply 1 Application Topical BID as needed [...] needle as directed TID 03/02/20 024 Inactive Humulin R U-500 (Concentrated) Insulin 500 unit/mL subcutaneous soln RxNorm: 654486 Inject 100 Unit(s) Subcutaneous TID 02/17/20 24 024 Inactive Humulin R U-500 (Concentrated) Insulin 500 unit/mL subcutaneous soln RxNorm: 960818 Inject 100 Unit(s) Subcutaneous TID 02/10/20 24 024 Inactive Basaglar KwikPen U-100 Insulin 100 unit/mL (3 mL) subcutaneous RxNorm: 9902236 Inject 30 Unit(s) Subcutaneous BID 02/10/20 24 024 Inactive Please dispense one month supply. pregabalin 100 mg capsule RxNorm: 280259 Take 1 Capsule(s) Oral QAM every morning 02/07/20 24 024 Inactive isosorbide mononitrate ER 60 mg tablet,extended release 24 hr RxNorm: 803846 Take 1 Tablet(s) Oral QD 02/01/20 24 025 Active aripiprazole 15 mg tablet RxNorm: 217120 Take 1/2 Tablet(s) Oral QD 02/01/20 24 Active torsemide 20 mg tablet RxNorm: 538030 1 TAB ORALLY DAILY (DX: EDEMA) 01/27/20 No Stop Date Active potassium chloride ER 20 mEq tablet,extended release(part/cryst) RxNorm: 4001770 2 TABS (40MEQ) ORALLY TWICE DAILY (DX: HYPOKALEMIA) 01/27/20 24 025 Inactive cephalexin 500 mg capsule RxNorm: 524838 Take 1 Capsule(s) Oral QID 12/17/19 24 024 Inactive cephalexin 500 mg capsule RxNorm: 744308 Take 1 Capsule(s) Oral QID 12/17/19 24 024 Inactive acetaminophen 500 mg tablet RxNorm: 280811 (MAX APAP:4GM/24HR) Take 1 Tablet(s) Oral TID as needed for pain 12/10/19 24 024 Inactive torsemide 20 mg tablet RxNorm: 739920 Take 1 Tablet(s) Oral QD 10/26/19 24 024 Inactive potassium chloride ER 20 mEq tablet,extended release RxNorm: 19800522 Take 2 Tablet(s) Oral BID 10/26/19 24 024 Inactive torsemide 20 mg tablet RxNorm: 212027 Take 1 Tablet(s) Oral QD 10/26/19 24 Inactive potassium chloride ER 20 mEq tablet,extended release RxNorm: 19800522 Take 2 Tablet(s) Oral BID 10/26/19 24 025 Inactive Artificial Tears (PF) 0.1 %-0.3 % drops in a dropperette RxNorm: 977593 Apply 1-2 Drop(s) Both eyes BID as needed 09/28/19 24 025 Inactive erythromycin 5 mg/gram (0.5 %) eye ointment RxNorm: 107873 Apply 1 Application Both eyes QHS every night at bedtime Instill ~1 cm ribbon into affected eye 09/28/19 24 024 Inactive Artificial Tears (PF) 0.1 %-0.3 % drops in a dropperette RxNorm: 891433 Apply 1-2 Drop(s) Both eyes BID as needed 09/28/19 24 024 Inactive erythromycin 5 mg/gram (0.5 %) eye ointment RxNorm: 611100 Apply 1 Application Both eyes QHS every night at bedtime Instill ~1 cm ribbon into affected eye 09/28/19 24 024 Inactive acetaminophen 500 mg tablet RxNorm: 878060 (MAX APAP:4GM/24HR) Take 1 Tablet(s) Oral TID as needed for pain 09/24/19 24 024 Inactive carvedilol 25 mg tablet RxNorm: 364715 Take 1 Tablet(s) Oral QD 09/08/19 24 No Stop Date Active pregabalin 100 mg capsule RxNorm: 105494 Take 1 Capsule(s) Oral QAM every morning 09/07/19 24 024 Inactive bisacodyl 10 mg rectal suppository RxNorm: 772900 Insert 1 Suppository Rectal QD as needed 07/13/19 24 No Stop Date Active ketoconazole 2 % shampoo RxNorm: 298463 Apply 1 Application Topical UD as directed 07/13/19 24 No Stop Date Active Ozempic 1 mg/dose (4 mg/3 mL) subcutaneous pen injector RxNorm: 0877292 Inject 1 Milligram(s) Subcutaneous QW once a week 07/13/19 24 No Stop Date Active Guaifenesin AC 10 mg-100 mg/5 mL oral liquid RxNorm: 724135 Take 10 Milliliter(s) Oral Q4H every four hours as needed 07/13/19 24 No Stop Date Active hydrocortisone 2.5 % topical cream RxNorm: 634058 Apply 1 Application Topical BID as needed 07/13/19 No Stop Date Active rosuvastatin 40 mg tablet RxNorm: 701184 Take 1 Tablet(s) Oral QPM every evening 07/13/19 024 Inactive ezetimibe 10 mg tablet RxNorm: 071868 Take 1 Tablet(s) Oral QD 07/13/19 24 025 Inactive polyethylene glycol 3350 17 gram/dose oral powder RxNorm: 546624 Take 17 Gram(s) Oral BID as needed mix in 4-8ox water 07/13/19 24 025 Inactive aripiprazole 15 mg tablet RxNorm: 906508 Take 1/2 Tablet(s) Oral QD 07/13/19 24 024 Inactive isosorbide mononitrate ER 60 mg tablet,extended release 24 hr RxNorm: 701089 Take 1 Tablet(s) Oral QD 07/13/19 24 024 Inactive ammonium lactate 12 % topical cream RxNorm: 175126 Apply 1 Application Topical BID 07/13/19 24 025 Inactive rosuvastatin 20 mg sprinkle capsule RxNorm: 8689736 Take 1 Capsule(s) Oral QD 07/13/19 24 025 Inactive Vascepa 1 gram capsule RxNorm: 6030205 Take 2 Capsule(s) Oral BID 07/13/19 24 024 Inactive venlafaxine ER 75 mg capsule,extended release 24 hr RxNorm: 943640 Take 3 Capsule(s) Oral QD 07/13/19 24 024 Inactive Basaglar KwikPen U-100 Insulin 100 unit/mL (3 mL) subcutaneous RxNorm: 5525512 Inject 30U SubQ twice daily 07/07/19 24 024 Inactive Please dispense one month supply. Basaglar KwikPen U-100 Insulin 100 unit/mL (3 mL) subcutaneous RxNorm: 6241925 Inject 30U SubQ twice daily 07/07/19 24 024 Inactive Please dispense one month supply. pregabalin 150 mg capsule RxNorm: 065826 Take 1 Capsule(s) Oral QHS every night at bedtime 07/05/19 24 024 Inactive pregabalin 150 mg capsule RxNorm: 622057 Take 1 Capsule(s) Oral QHS every night at bedtime 07/05/19 024 Inactive polyethylene glycol 3350 17 gram/dose oral powder RxNorm: 760856 Take 1 Packet Oral QD as needed (1 packet = 17g) mix with 4-8oz of liquid 06/15/19 024 Inactive bisacodyl 10 mg rectal suppository RxNorm: 662548 Insert one suppository per rectum once daily as needed for constipation 06/15/19 024 Inactive bisacodyl 10 mg rectal suppository RxNorm: 066465 Insert one suppository per rectum once daily as needed for constipation 06/15/19 024 Inactive pregabalin 100 mg capsule RxNorm: 750345 Take 1 Capsule(s) Oral QAM every morning 04/27/20 024 Inactive Levemir FlexPen 100 unit/mL (3 mL) solution subcutaneous insulin pen RxNorm: 838217 Inject 30 Unit(s) Subcutaneous BID 04/27/20 024 Inactive rosuvastatin 40 mg tablet RxNorm: 716617 Take 1 Tablet(s) Oral QPM every evening 04/16/20 024 Inactive D/C rosuvastatin 20mg venlafaxine ER 75 mg capsule,extended release 24 hr RxNorm: 206201 Take 3 Capsule(s) Oral QD 04/14/20 23 023 Inactive pregabalin 100 mg capsule RxNorm: 474220 Take 1 Capsule(s) Oral QAM every morning [...] strip clotrimazole 1 % topical cream RxNorm: 024124 Take apply topically to abdominal folds twice daily for 14 days 03/12/20 024 Inactive Ozempic 1 mg/dose (4 mg/3 mL) subcutaneous pen injector RxNorm: 1424993 Inject 1 Milligram(s) Subcutaneous QW once a week 03/11/20 023 Inactive rosuvastatin 20 mg tablet RxNorm: 297431 Take 1 Tablet(s) Oral QD 02/26/20 023 Inactive d/c pravastatin 80mg Ozempic 1 mg/dose (4 mg/3 mL) subcutaneous pen injector RxNorm: 0827003 Inject 1 Milligram(s) Subcutaneous QW once a week 02/20/20 023 Inactive pregabalin 150 mg capsule RxNorm: 377245 Take 1 Capsule(s) Oral HS at bed time 02/19/20 023 Inactive pregabalin 100 mg capsule RxNorm: 596583 Take 1 Capsule(s) Oral QAM every morning 02/18/20 023 Inactive venlafaxine ER 75 mg capsule,extended release 24 hr RxNorm: 707345 Take 3 Capsule(s) Oral QD 02/04/20 023 Inactive FreeStyle Chema 2 Sensor kit RxNorm: use as directed 02/04/20 023 Inactive FreeStyle Chema 2 Sensor kit RxNorm: use as directed 02/04/20 23 024 Inactive fluconazole 150 mg tablet RxNorm: 068312 Take 1 Tablet(s) Oral on day 3 and on day 6 02/03/20 024 Inactive venlafaxine ER 150 mg capsule,extended release 24 hr RxNorm: 055639 Take 1 Capsule(s) Oral QD 02/03/20 023 Inactive chlorthalidone 25 mg tablet RxNorm: 003750 Take 1 Tablet(s) Oral QAM every morning 02/03/20 024 Inactive acetaminophen 500 mg tablet RxNorm: 690149 1 TABLET ORALLY 3 TIMES DAILY (MAX APAP:4GM/24HR) 12/15/19 23 023 Inactive potassium chloride ER 20 mEq tablet,extended release RxNorm: 613126 Take 1 Tablet(s) Oral BID 12/09/19 024 Inactive d/c 20mEq once daily (sent from hospital) clotrimazole 1 % topical cream RxNorm: 374409 apply 1g topically to top of feet and in between toes BID 12/09/19 23 025 Inactive nystatin 100,000 unit/gram topical powder RxNorm: 851799 APPLY TO AFFECTED AREAS TOPICALLY 2 TIMES DAILY 11/21/19 023 Inactive Nystop 100,000 unit/gram topical powder RxNorm: 901751 Apply to abd folds, under breasts and L side of groin Topical BID x 14 days, then BID PRN 11/20/19 023 Inactive dx: yeast dermatitis [place] Ultra Strength 4 %-30 %-10 % topical cream RxNorm: 482354 Apply 1 Gram(s) Topical QID PRN to feet and legs for neuropathic pain 11/11/19 024 Inactive clotrimazole 1 % topical cream RxNorm: 575848 Apply 1/2 Gram(s) Topical BID Apply to affected areas of groin, periarea, and abdominal topically 2 times daily 11/10/19 023 Inactive hydrocortisone 2.5 % topical cream RxNorm: 759647 Apply 1/2 Gram(s) Topical BID as needed 11/10/19 024 Inactive Levemir FlexPen 100 unit/mL (3 mL) solution subcutaneous insulin pen RxNorm: 940375 Inject 30 Unit(s) Subcutaneous BID 10/07/19 23 023 Inactive Humulin R U-500 (Concentrated) Insulin 500 unit/mL subcutaneous soln RxNorm: 454915 Inject 100 Unit(s) Subcutaneous TID 10/07/19 024 Inactive Ozempic 0.25 mg or 0.5 mg (2 mg/3 mL) subcutaneous pen injector RxNorm: 9326462 Inject 1/2 Milligram(s) Subcutaneous QW once a week 10/07/19 024 Inactive aripiprazole 15 mg tablet RxNorm: 567893 1/2 TAB (7.5MG) ORALLY DAILY (DX:MAJOR DEPRESSIVE DISORDER) 09/23/19 23 023 Inactive Accu-Chek Guide test strips RxNorm: Use 1 Test Strip QID 09/15/19 23 023 Inactive ok to substitute with any covered alternative test strip Lancets,Thin 28 gauge RxNorm: Use 1 as directed QID 09/15/19 23 023 Inactive torsemide 20 mg tablet RxNorm: 429210 Take 1 Tablet(s) Oral BID 09/09/19 23 024 Inactive d/c once daily dosing carvedilol 25 mg tablet RxNorm: 058304 Take 1 Tablet(s) Oral QD 08/25/19 23 024 Inactive pregabalin 150 mg capsule RxNorm: 607576 1 Capsule(s) Oral HS at bed time 08/18/19 23 023 Inactive pregabalin 100 mg capsule RxNorm: 343791 1 Capsule(s) Oral QAM every morning 08/18/19 23 023 Inactive carvedilol 25 mg tablet RxNorm: 215645 1 Tablet(s) Oral QD 07/28/19 23 023 Inactive lisinopril 20 mg tablet RxNorm: 870769 Give 1 Tablet(s) Oral QD 07/28/19 23 023 Inactive Lyrica 150 mg capsule RxNorm: 912980 Take 1 Capsule(s) Oral QHS every night at bedtime 07/19/19 23 023 Inactive d/c 100mg dose Diflucan 150 mg tablet RxNorm: 827659 Take 1 Tablet(s) Oral QD repeat on day 3 and 6 07/19/19 23 023 Inactive pregabalin 100 mg capsule RxNorm: 502231 Take 1 Capsule(s) Oral QAM every morning 07/19/19 23 023 Inactive gatifloxacin 0.5 % eye drops RxNorm: 939736 Instill 1 Drop(s) as directed TID Instill 1 drop in to affected eye(s) starting 1 day prior to surgery and continue until gone (do not exceed 4 weeks). 07/13/19 23 023 Inactive carvedilol 25 mg tablet RxNorm: 818440 2 Tablet(s) Oral BID 07/13/19 23 023 Inactive Humulin R Regular U-100 Insulin 100 unit/mL injection solution RxNorm: 090089 85 Unit(s) Injection TID 07/13/19 23 023 Inactive ketorolac 0.5 % eye drops RxNorm: 735344 Instill 1 Drop(s) as directed QID Instill 1 drop into affected eye(s) 4 times daily starting 1 day prior to surgery and continue until gone (do not exceed 4 weeks). 07/13/19 23 023 Inactive Diflucan 150 mg tablet RxNorm: 964692 Take 1 Tablet(s) Oral QD repeat on day 3 and 6 06/30/19 023 Inactive Accu-Chek Guide test strips RxNorm: Use 1 Test Strip QID Use 1 test strip to monitor blood glucose 4 times daily and as needed. Dx:E11.42. 06/23/19 23 023 Inactive ok to substitute with any covered alternative test strip dextromethorphan-gu aifenesin 10 mg-100 mg/5 mL oral liquid RxNorm: 879937 Take 10 Milliliter(s) Oral every 4 hours as needed for cough 06/19/19 23 023 Inactive dextromethorphan-gu aifenesin 10 mg-100 mg/5 mL oral liquid RxNorm: 697537 Take 10 Milliliter(s) Oral every 4 hours as needed for cough 06/19/19 23 023 Inactive Lyrica 150 mg capsule RxNorm: 719500 Take 1 Capsule(s) Oral QHS every night at bedtime 06/18/19 23 023 Inactive d/c 100mg dose aripiprazole 15 mg tablet RxNorm: 211987 1/2 TAB (7.5MG) ORALLY DAILY (DX:MAJOR DEPRESSIVE DISORDER) 06/05/19 23 023 Inactive pregabalin 100 mg capsule RxNorm: 187382 1 Capsule(s) Oral QAM every morning 06/02/19 23 023 Inactive Banophen 50 mg capsule RxNorm: 9859087 Take 1 Capsule(s) Oral Q6H every 6 hours as needed 05/19/19 No Stop Date Active Novolog Flexpen U-100 Insulin aspart 100 unit/mL (3 mL) subcutaneous RxNorm: 8336873 Inject 10 Unit(s) Subcutaneous QHS every night at bedtime with nighttime snack 04/08/20 Inactive Novolog Flexpen U-100 Insulin aspart 100 unit/mL (3 mL) subcutaneous RxNorm: 2525670 Inject 42 Unit(s) Subcutaneous TID in addition to sliding scale 04/08/20 Inactive d/c 36u albuterol sulfate HFA 90 mcg/actuation aerosol inhaler RxNorm: 0741930 Take 2 Puff(s) Inhalation Q4H every four hours as needed as needed for SOB, cough, or wheezing 04/07/20 030 Active Banophen 50 mg capsule RxNorm: 8116924 Take 1 Capsule(s) Oral Q6H every 6 hours as needed 04/06/20 023 Inactive diphenhydramine 50 mg tablet RxNorm: 9238627 Take 1 Tablet(s) Oral Q6H every 6 hours as needed 04/06/20 022 Inactive diphenhydramine 50 mg tablet RxNorm: 4803973 1 Tablet(s) Oral Q6H every 6 hours as needed 04/06/20 022 Inactive Abilify 15 mg tablet RxNorm: 501588 1/2 Tablet(s) Oral QD 03/10/20 023 Inactive Shingrix (PF) 50 mcg/0.5 mL intramuscular suspension, kit RxNorm: 1609405 Administer 1/2 Milliliter(s) Intramuscular QD one time shingrix step 2 ( step 1 given 11/04/21) WITH needle - Nursing please administer upon arrival and once administered post a bridge message with date of administration, battery charger, expiration date, and lot# so we can update [facility] 02/18/20 22 022 Inactive dispense with needle Shingrix (PF) 50 mcg/0.5 mL intramuscular suspension, kit RxNorm: 3982825 Administer 1/2 Milliliter(s) Intramuscular QD one time shingrix step 2 ( step 1 given 11/04/21) WITH needle - Nursing please administer upon arrival and once administered post a bridge message with date of administration, battery charger, expiration date, and lot# so we can update [facility] 02/18/20 22 Inactive dispense with needle Lyrica 100 mg capsule RxNorm: 362106 Take 1 Capsule(s) Oral QAM every morning 01/08/20 22 022 Inactive d/c 50mg dose acetaminophen 500 mg tablet RxNorm: 037670 Take 1 Tablet(s) Oral TID 01/08/20 22 022 Inactive d/c PRN order Lyrica 150 mg capsule RxNorm: 926459 Take 1 Capsule(s) Oral QHS every night at bedtime 01/08/20 22 023 Inactive d/c 100mg dose polyethylene glycol 3350 17 gram/dose oral powder RxNorm: 438720 Take 17=1 capful Gram(s) Oral QD mix with 4-8oz of liquid 01/08/20 22 025 Inactive take this in addition to BID prn order Abilify 5 mg tablet RxNorm: 280383 Take 1 Tablet(s) Oral QD take 1 tab po QD #30 refill 5 dx: MDD 12/12/19 22 022 Inactive Abilify 5 mg tablet RxNorm: 938115 Take 1 Tablet(s) Oral QD take 1 tab po QD #30 refill 5 dx: MDD 12/12/19 22 022 Inactive Novolog Flexpen U-100 Insulin aspart 100 unit/mL (3 mL) subcutaneous RxNorm: 3537033 Inject 42 Unit(s) Subcutaneous TID in addition to sliding scale 12/10/19 22 022 Inactive d/c 36u chlorthalidone 25 mg tablet RxNorm: 015854 Take 1 Tablet(s) Oral QAM every morning 12/10/19 22 023 Inactive pregabalin 50 mg capsule RxNorm: 776173 Take 1 Capsule(s) Oral QAM every morning 11/12/19 22 022 Inactive tetanus-diphtheria toxoids-Td 2 Lf unit-2 Lf unit/0.5 mL IM suspension RxNorm: 139 Take 0.5 Miscellaneous Intramuscular 11/12/19 22 022 Inactive need tdap - nursing to administer upon arrival pregabalin 50 mg capsule RxNorm: 906734 Take 1 Capsule(s) Oral QAM every morning 10/16/19 22 022 Inactive pregabalin 50 mg capsule RxNorm: 571772 Take 1 Capsule(s) Oral QAM every morning 10/16/19 22 022 Inactive pregabalin 50 mg capsule RxNorm: 019260 1 Capsule(s) Oral QAM every morning 10/15/19 22 022 Inactive Shingrix (PF) 50 mcg/0.5 mL intramuscular suspension, kit RxNorm: 1228204 Administer 1/2 Milliliter(s) Intramuscular one time Nursing please administer upon arrival and once administered post a bridge message with date of administration, battery charger, expiration date, and lot# so we can update [facility]. 10/09/19 22 022 Inactive shingrix step 1 Shingrix (PF) 50 mcg/0.5 mL intramuscular suspension, kit RxNorm: 4294411 Administer 1/2 Milliliter(s) Intramuscular one time Nursing please administer upon arrival and once administered post a bridge message with date of administration, battery charger, expiration date, and lot# so we can [...] aspart 100 unit/mL (3 mL) subcutaneous RxNorm: 7077704 Inject 10 Unit(s) Subcutaneous QHS every night at bedtime with nighttime snack 10/08/19 22 022 Inactive Shingrix (PF) 50 mcg/0.5 mL intramuscular suspension, kit RxNorm: 0366328 ADMINISTER 2-DOSE SERIES PER CDC GUIDELINES 10/08/19 22 022 Active Shingrix (PF) 50 mcg/0.5 mL intramuscular suspension, kit RxNorm: 3643049 ADMINISTER 2-DOSE SERIES PER CDC GUIDELINES 10/08/19 22 Inactive Novolog Flexpen U-100 Insulin aspart 100 unit/mL (3 mL) subcutaneous RxNorm: 0114495 Inject 36 Unit(s) Subcutaneous TID in addition to sliding scale 10/08/19 Inactive cholecalciferol (vitamin D3) 1,250 mcg (50,000 unit) capsule RxNorm: 298585 Take 1 Capsule(s) Oral QW once a week 10/08/19 Inactive Novofine Autocover 30 gauge x 1/3 needle RxNorm: Use 1 Miscellaneous UD as directed Use 1 needle as directed to administer insulin 5 times a day Dx:E11.42. 10/03/19 Inactive ok to substitute with any covered alternative pen needle benzoyl peroxide 10 % topical cleanser RxNorm: 374173 Apply 1 Application Topical QD apply to face, wash rinse and dry once daily (may change to QOD if drying) 08/19/19 022 Inactive (%covered by insurance) #60ml refill 11 dx: acne benzoyl peroxide 10 % topical cleanser RxNorm: 416179 Apply 1 Application Topical QD apply to face, wash rinse and dry once daily (may change to QOD if drying) 08/19/19 22 022 Inactive (%covered by insurance) #60ml refill 11 dx: acne benzoyl peroxide 10 % topical cleanser RxNorm: 513827 Apply 1 Application Topical QD apply to face, wash rinse and dry once daily (may change to QOD if drying) 08/19/19 22 022 Inactive (%covered by insurance) #60ml refill 11 dx: acne Lyrica 50 mg capsule RxNorm: 054148 Take 1 Capsule(s) Oral QAM every morning Take 1 capsule by mouth once daily 08/19/19 22 022 Inactive benzoyl peroxide 10 % topical cleanser RxNorm: 292128 Apply 1 Application Topical QD apply to face, wash rinse and dry once daily (may change to QOD if drying) 08/19/19 22 Inactive (%covered by insurance) #60ml refill 11 dx: acne Lyrica 100 mg capsule RxNorm: 926440 Take 1 Capsule(s) Oral QHS every night at bedtime Take 1 capsule by mouth once daily at bedtime 08/19/19 22 022 Inactive Lyrica 100 mg capsule RxNorm: 214691 Take 1 Capsule(s) Oral QHS every night at bedtime Take 1 capsule by mouth once daily at bedtime 08/16/19 22 022 Inactive Lyrica 50 mg capsule RxNorm: 981999 Take 1 Capsule(s) Oral QAM every morning Take 1 capsule by mouth once daily 08/16/19 22 022 Inactive Levemir FlexTouch U-100 Insulin 100 unit/mL (3 mL) subcutaneous pen RxNorm: 614884 Inject 86 Unit(s) Subcutaneous BID 08/05/19 22 022 Inactive d/c 83units BID Lyrica 100 mg capsule RxNorm: 682047 Take 1 Capsule(s) Oral QHS every night at bedtime Take 1 capsule by mouth once daily at bedtime 07/14/19 22 022 Inactive Lyrica 50 mg capsule RxNorm: 108639 Take 1 Capsule(s) Oral QAM every morning Take 1 capsule by mouth once daily 07/14/19 22 022 Inactive Levemir FlexTouch U-100 Insulin 100 unit/mL (3 mL) subcutaneous pen RxNorm: 097465 Inject 83 Unit(s) Subcutaneous BID 07/08/19 22 [...] test strip hydralazine 50 mg tablet RxNorm: 137953 Take 1 Tablet(s) Oral QID 05/05/20 21 022 Inactive venlafaxine ER 225 mg tablet,extended release 24 hr RxNorm: 686832 Take 1 Tablet(s) Oral QD 05/05/20 21 021 Inactive venlafaxine ER 225 mg tablet,extended release 24 hr RxNorm: 067820 Take 1 Tablet(s) Oral QD 05/05/20 21 022 Inactive isosorbide mononitrate ER 30 mg tablet,extended release 24 hr RxNorm: 140567 Take 1 Tablet(s) Oral QD 05/05/20 21 024 Inactive hydralazine 50 mg tablet RxNorm: 999116 Take 1 Tablet(s) Oral QID 05/05/20 21 021 Inactive aspirin 81 mg tablet,delayed release RxNorm: 651756 Take 1 Tablet(s) Oral QD 03/31/20 022 Inactive Vitamin D2 1,250 mcg (50,000 unit) capsule RxNorm: 4249940 Take 1 Capsule(s) Oral QW once a week x 12 weeks 03/31/20 022 Inactive Vitamin D2 1,250 mcg (50,000 unit) capsule RxNorm: 7699272 Take 1 Capsule(s) Oral QW once a week 03/31/20 021 Inactive Zetia 10 mg tablet RxNorm: 966570 Take 1 Tablet(s) Oral QD 03/31/20 024 Inactive Zetia 10 mg tablet RxNorm: 433143 Take 1 Tablet(s) Oral QD 03/31/20 021 Inactive hydralazine 25 mg tablet RxNorm: 662526 Take 1 Tablet(s) Oral QID 03/31/20 021 Inactive hydralazine 25 mg tablet RxNorm: 369043 Take 1 Tablet(s) Oral QID 03/31/20 021 Inactive hydralazine 10 mg tablet RxNorm: 213998 Take 1 Tablet(s) Oral QID 03/03/20 021 Inactive cephalexin 500 mg tablet RxNorm: 111263 Take 1 Tablet(s) Oral QID 02/27/20 021 Inactive cephalexin 500 mg tablet RxNorm: 165944 Take 1 Tablet(s) Oral QID 02/27/20 021 Inactive lisinopril 40 mg tablet RxNorm: 708702 Take 1 Tablet(s) Oral QD 02/11/20 21 023 Inactive Eliquis 5 mg tablet RxNorm: 7211484 Take 1 Tablet(s) Oral BID 01/05/20 21 025 Inactive Eliquis 5 mg tablet RxNorm: 4862474 Take 2 Tablet(s) Oral QD 01/01/20 21 021 Inactive Lyrica 50 mg capsule RxNorm: 658748 Take 1 Capsule(s) Oral QAM every morning 12/24/19 21 021 Inactive Lyrica 100 mg capsule RxNorm: 049532 Take 1 Capsule(s) Oral QHS every night at bedtime 12/24/19 21 021 Inactive clotrimazole 1 % topical cream RxNorm: 949494 Apply to right foot and toes Topical BID 12/04/19 21 023 Inactive metoprolol succinate ER 200 mg tablet,extended release 24 hr RxNorm: 799462 Take 1 Tablet(s) Oral QD 12/04/19 21 023 Inactive ciprofloxacin 500 mg tablet RxNorm: 417242 Take 1 Tablet(s) Oral QD 11/30/19 21 021 Inactive DX ofloxacin otic drops Accu-Chek Guide test strips RxNorm: USE 1 TO CHECK GLUCOSE 4 TIMES DAILY AND NEEDED 11/15/19 21 023 Inactive Blood Glucose Test strips RxNorm: Use 1 Test Strip QID at PRN 11/05/19 21 023 Inactive E11.42 lisinopril 30 mg tablet RxNorm: 277130 Take 1 Tablet(s) Oral QD 10/30/19 021 Inactive lisinopril 20 mg tablet RxNorm: 543450 Take 1 Tablet(s) Oral QD 10/23/19 21 021 Inactive lisinopril 20 mg tablet RxNorm: 229709 Take 1 Tablet(s) Oral QD 10/23/19 21 021 Inactive lisinopril 10 mg tablet RxNorm: 949545 Take 1 Tablet(s) Oral QD 10/02/19 21 021 Inactive icosapent ethyl 1 gram capsule RxNorm: 5231914 Take 2 Capsule(s) (2 gm) Oral BID with meals 09/12/19 024 Inactive Okay to dispense one 2gm tab if you have that available. icosapent ethyl 1 gram capsule RxNorm: 4733909 Take 2 Capsule(s) Oral BID 09/12/19 21 021 Inactive Okay to dispense one 2gm tab if you have that available. amlodipine 10 mg tablet RxNorm: 748932 Take 1 Tablet(s) Oral QD 09/04/19 21 021 Inactive aspirin 81 mg tablet,delayed release RxNorm: 705155 Take 1 Tablet(s) Oral QD 09/04/19 021 Inactive Levemir FlexTouch U-100 Insulin 100 unit/mL (3 mL) subcutaneous pen RxNorm: 927534 Inject 150 Unit(s) Subcutaneous BID 09/04/19 022 Inactive venlafaxine ER 150 mg tablet,extended release 24 hr RxNorm: 448837 Take 1 Tablet(s) Oral QD 09/04/19 021 Inactive clotrimazole-betame thasone 1 %-0.05 % topical cream RxNorm: 955566 Apply to rash on red area on left abdomen/chest Topical BID 08/10/19 21 021 Inactive amlodipine 5 mg tablet RxNorm: 535017 Take 1 Tablet(s) Oral QD 07/31/19 21 021 Inactive cephalexin 500 mg tablet RxNorm: 148895 Take 1 Tablet(s) Oral BID BID - Twice Daily 07/31/19 021 Inactive Start 08/01/20 pantoprazole 40 mg tablet,delayed release RxNorm: 054410 Take 1 Tablet(s) Oral QAM every morning 07/08/19 025 Inactive clopidogrel 75 mg tablet RxNorm: 509895 Take 1 Tablet(s) Oral QD 07/08/19 021 Inactive Blood Glucose Test strips RxNorm: Use 1 Test Strip QID at PRN 07/08/19 21 021 Inactive E11.42 senna 8.6 mg tablet RxNorm: 559323 Take 1 Tablet(s) Oral QD 07/08/19 025 Inactive Novolog Flexpen U-100 Insulin aspart 100 unit/mL (3 mL) subcutaneous RxNorm: 8832577 Administer per sliding scale Milliliter(s) Subcutaneous TID 151-200: 10 u; 201-250: 20 u; 251-300: 30 u; 301-350: 40 u; 351-400: 50 u. 07/08/19 21 022 Inactive lisinopril 5 mg tablet RxNorm: 806070 Take 1 Tablet(s) Oral QD 07/08/19 021 Inactive Novolog Flexpen U-100 Insulin aspart 100 unit/mL (3 mL) subcutaneous RxNorm: 6371164 Inject 85 Unit(s) Subcutaneous TID 07/08/19 21 022 Inactive pravastatin 80 mg tablet RxNorm: 745738 Take 1 Tablet(s) Oral QHS every night at bedtime 07/08/19 023 Inactive clotrimazole 1 % topical cream RxNorm: 837345 Apply to bilateral groin areas Topical BID 07/08/19 21 022 Inactive metoprolol succinate ER 200 mg tablet,extended release 24 hr RxNorm: 245686 Take 1 Tablet(s) Oral QD 07/08/19 21 021 Inactive Vitamin D3 25 mcg (1,000 unit) tablet RxNorm: 973802 Take 1 Tablet(s) Oral QD 07/08/19 21 021 Inactive isosorbide dinitrate 30 mg tablet RxNorm: 918961 Take 1 Tablet(s) Oral QD 07/08/19 021 Inactive carbamazepine 200 mg tablet RxNorm: 944979 Take 1 Tablet(s) Oral BID 07/08/19 21 025 Inactive Levemir FlexTouch U-100 Insulin 100 unit/mL (3 mL) subcutaneous pen RxNorm: 294717 Inject 140 Unit(s) Subcutaneous BID 07/08/19 21 021 Inactive torsemide 20 mg tablet RxNorm: 149249 Take 1 Tablet(s) Oral QD 07/08/19 21 023 Inactive venlafaxine 75 mg tablet RxNorm: 305142 Take 1 Tablet(s) Oral QD 07/08/19 21 021 Inactive acetaminophen 500 mg tablet RxNorm: 449243 Take 1 Tablet(s) Oral TID as needed for headache 06/18/19 021 Inactive acetaminophen 500 mg tablet RxNorm: 738173 Take 1 Tablet(s) Oral TID as needed for headache 06/18/19 21 021 Inactive Lyrica 100 mg capsule RxNorm: 460802 Take 1 Capsule(s) Oral QHS every night at bedtime 06/11/19 21 021 Inactive Lyrica 50 mg capsule RxNorm: 971445 Take 1 Capsule(s) Oral QAM every morning 06/10/19 21 021 Inactive hydrocortisone 2.5 % topical cream RxNorm: 810974 Apply to bilateral groin creases Topical BID 05/15/20 20 021 Inactive clotrimazole 1 % topical cream RxNorm: 418982 Apply to bilateral groin areas Topical BID 05/15/20 20 021 Inactive Lyrica 50 mg capsule RxNorm: 678978 Take 1 Capsule(s) Oral QAM every morning 05/14/20 20 020 Inactive Lyrica 100 mg capsule RxNorm: 636995 Take 1 Capsule(s) Oral QHS every night [...] Inactive Nystop 100,000 unit/gram topical powder RxNorm: 612908 Apply to abd folds, under breasts and L side of groin Topical BID x 14 days, then BID PRN 04/08/20 20 020 Inactive dx: yeast dermatitis Lyrica 100 mg capsule RxNorm: 243297 Take 1 Capsule(s) Oral QHS every night at bedtime 03/13/20 20 020 Inactive Lyrica 50 mg capsule RxNorm: 378739 Take 1 Capsule(s) Oral QAM every morning 03/13/20 20 020 Inactive ketoconazole 2 % shampoo RxNorm: 877029 Apply Topical two times a week with showers 03/11/20 20 024 Inactive cholecalciferol (vitamin D3) 50 mcg (2,000 unit) tablet RxNorm: 270980 Take 1 Tablet(s) Oral QD 03/11/20 20 021 Inactive Zetia 10 mg tablet RxNorm: 405133 Take 1 Tablet(s) Oral QD 03/07/20 20 021 Inactive Zetia 10 mg tablet RxNorm: 202127 Take 1 Tablet(s) Oral QD 03/07/20 20 020 Inactive Lyrica 50 mg capsule RxNorm: 890330 Take 1 Capsule(s) Oral QAM every morning 02/15/20 20 Inactive Lyrica 100 mg capsule RxNorm: 182482 Take 1 Capsule(s) Oral QHS every night at bedtime 02/15/20 20 Inactive Lyrica 100 mg capsule RxNorm: 220072 Take 1 Capsule(s) Oral QHS every night at bedtime 02/15/20 20 020 Inactive Lyrica 50 mg capsule RxNorm: 249201 Take 1 Capsule(s) Oral QAM every morning 02/15/20 20 Inactive venlafaxine ER 75 mg capsule,extended release 24 hr RxNorm: 566729 Take 3 Capsule(s) Oral QD 06/12/19 023 Inactive polyethylene glycol 3350 17 gram/dose oral powder RxNorm: 071902 Take 17=1 capful Gram(s) Oral BID as needed mix with 4-8oz of liquid 06/12/19 22 024 Inactive icosapent ethyl 1 gram capsule RxNorm: 7951197 Take 2 Capsule(s) (2 gm) Oral BID with meals 10/07/19 23 023 Inactive Okay to dispense one 2gm tab if you have that available. Levemir FlexTouch U-100 Insulin 100 unit/mL (3 mL) subcutaneous pen RxNorm: 316948 Inject 80 Unit(s) Subcutaneous BID 07/14/19 23 023 Inactive metoprolol succinate ER 200 mg tablet,extended release 24 hr RxNorm: 227807 Take 1 Tablet(s) Oral QD 08/12/19 025 Inactive loperamide 2 mg capsule RxNorm: 030537 Take 1 Capsule(s) Oral QID as needed 09/06/19 025 Inactive hydralazine 50 mg tablet RxNorm: 164053 Take 1 Tablet(s) Oral QID 08/12/19 025 Inactive Soft Touch Lancets RxNorm: miscellaneous 03/04/20 025 Inactive Novolog Flexpen U-100 Insulin aspart 100 unit/mL (3 mL) subcutaneous RxNorm: 7128344 Insert 30 Unit(s) Subcutaneous TID with meals [...] Planned Activity Notes Codes Status Date Referral: [facility] [address] [id number] [place]erral[place]ointment Uzdoqwcno13/06/2025Referral: [facility]/Endocrinology WPtel: [address] [id number] USReferralNo Records [id number]/24/2025Referral: [facility]: [address] [facility] [address] [id number] [place]ReferralRecords [id number]/08/2023Referral: [facility] WPtel: [address] [facility] [address] [id number]/12/2022Referral: General CardiologyReferralCompleted 1Referral: General PsychologistReferralClosedReferral: General PsychiatristReferralPatient/Family [...] Sister Jyotsna involved in his care cell# [phone] Guardian: Don (tapan met in person 09/01/21), [...] 05.26.2024 with Jessa Webster MD at [facility]. Start Pioglitazone 15 mg QD. Stop Basaglar insulin. Increase Ozempic 2 mg once wkly. Continue Humalin R U-500 100 units with meals TID. FOLLOW UP 2 MONTHS. If BG >400 add 50 units to next scheduled dose of Humalin R U 500 insulin 06/12/2024
--- OUTSIDE RECORDS SUMMARY | 2024-10-19 18:14 | XMS_ITS | CCD ---
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 Senior Core Java Developer Name Role Phone Arpit VIDALKeeganHarrison Primary Care Provider Leona vailable Unavailable Chronic Care Management Unavaila ble Summary Purpose DataExchange Insurance Providers Payer name Policy type / Coverage type Covered democrat ID Effective Begin Date Effective End Date [place] [id number] Unknown Unknown [place] [id number] Unknown Unknown Family history Sister Brittany Suggs Diagnosis Age At Onset No Family Disease Entered N/A Runs in the family Diagnosis Age At Onset No Known Diseases N/A Sister Blanka Mcduffie Diagnosis Age At Onset No Family Disease Entered N/A Social History Social History Element Codes Description Effec tive Dates Tobacco history SNOMED CT: 170642655 Never smoker 01/16 Sexually Active? Unknown No [...] Fpc 09/03/[address]: 195061512 No Alcohol Consum ption 09/02/2020 Allergies, Adverse Reactions, Alerts Substance Reaction Codes Entered Date Inactivated Date Status * NO KNOWN FOOD ALLERGIES Ktbwsqo7607/13/2023No Inactive DateActiveLISINOPRILRxNorm: 7772582No Inactive DateActiveMetformin GYxZyfgcdb47/28/2020No Inactive DateActive* NO KNOWN ENVIRONMENTAL TWZVZBZMWPyahanq88/27/2024No Inactive DateActive Problems Condition Codes Effective Dates Condition St atus Candidal intertrigo ICD-10: B37.2 ICD-9: 112.301/5ActiveHemorrhoidsICD-10: K64.9 ICD-9: 455.601/tiveHyperlipidemia associated with type 2 diabetes mellitusICD-10: E11.69 ICD-9: 250.8001/tiveHypertensive heart disease without heart failure ICD-10: I11.9 ICD-9: 402.9001/tiveHypokalemiaICD-10: E87.6 ICD-9: 276.801tiveOnychogryposisICD-10: L60.2 ICD-9: 703.801/tiveStage 2 chronic 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ICD-10: E11.22 ICD-9: 250.4001/5ActiveType 2 diabetes mellitus with diabetic polyneuropathy, with long-term current use of insulinICD-10: E11.42 ICD-9: 250.6001tiveAdvance care planningICD-10: Z71.89 ICD-9: V65.4912/ctiveBMI 60.0-69.9, adultICD-10: Z68.44 ICD-9: V85.4410/ctiveDiabetic neuropathy associated with type 2 diabetes mellitusICD-10: E11.40 ICD-9: 250.6010/ctiveLow back painICD-10: M54.50 ICD-9: 724.210/ctiveParaparesis of both lower limbsICD-10: G82.20 ICD-9: 344.110/ctivePhysical deconditioningICD-10: R53.81 ICD-9: 799.310/ctivePVD (peripheral vascular disease)ICD-10: I73.9 ICD-9: 443.910/ctiveAdvanced care planning - to document end of life [id number] toe of right footICD-10: S98.131A ICD-9: 895.009/ctiveAnnual physical examICD-10: Z00.00 ICD-9: V70.009/ctiveConstipation by delayed colonic transitICD-10: K59.01 ICD-9: 564.0109/ctiveHistory [...] E55.9 ICD-9: 268.909/ctiveCallus of heelICD-10: L84 ICD-9: 51960/esolvedGout due to renal impairmentICD-10: M10.30 ICD-9: 274.1005/esolvedHyperhidrosis of palmsICD-10: L74.512 ICD-9: 705.21010/12/2023esolvedHyperlipidemia, unspecifiedICD-10: E78.5 ICD-9: 272.405/esolvedOther emt intermediate (current) drug therapyICD-10: Z79.899 ICD-9: V58.6905esolvedPain [...] tagICD-10: L91.8 ICD-9: 701.904esolvedCoronary artery disease involving [place] coronary artery of [place] heart, angina presence unspecifiedICD-10: I25.10 ICD-9: 414.0102/ctiveInappropriate sexual behaviorICD-10: Z72.89 ICD-9: 312.8910/ctivePre-op evaluationICD-10: Z01.818 ICD-9: V72.8403/ctiveSecondary hypertensionICD-10: I15.9 ICD-9: 405.9903/ctiveDepressionICD-10: F32.9 ICD-9: 46815/esolvedDVT (deep venous thrombosis)ICD-10: I82.409 ICD-9: 453.4009/2ResolvedEncounter for immunizationICD-10: Z23 ICD-9: V03.8909/2ResolvedLong term (current) use of insulinICD-10: Z79.4 2ResolvedMuscular painICD-10: M79.10 ICD-9: 729.109/2ResolvedHypertension associated with diabetesICD-10: E11.59 ICD-9: 250.8008/2ResolvedContact with and (suspected) exposure to covid-19 ICD-10: Z20.822 ICD-9: V01.7908/1ResolvedOther infective acute otitis externa of left ear ICD-10: H60.392 ICD-9: 380.1008/1ResolvedScrotal skin lesionICD-10: N50.9 ICD-9: 608.9012/31/2020esolvedAnemia due to stage 3b chronic kidney diseaseICD- 10: N18.32 ICD-9: 285.2105/1ResolvedChronic kidney disease, stage 3 unspecifiedICD- 10: N18.3004/esolvedContact with and (suspected) exposure to other viral communicable diseasesICD-10: Z20.828 ICD-9: V01.79027879RpjpyfzcUcfjjduvSbmzgxg16/28/2020ActiveDiabetes mellitus Type 7Axnmbup60/28/2020ActiveAnemia in chronic kidney diseaseICD-10: D63.1 02/12/2020ResolvedHyperlipidemia, unspecifiedICD-10: E78.509Resolved Medications Medication Codes Instructions Start Date Stop Date Status Fill Instructions metoprolol succinate ER 200 mg tablet,extended release 24 hr RxNorm: 603833 Take 1 Tablet(s) Oral QD 06/19/19 25 No Stop Date Active pantoprazole 40 mg tablet,delayed release RxNorm: 307151 Take 1 Tablet(s) Oral QAM every morning 06/19/19 25 No Stop Date Active hydralazine 50 mg tablet RxNorm: 665131 Take 1 Tablet(s) Oral QID 06/19/19 25 No Stop Date Active carbamazepine 200 mg tablet RxNorm: 450769 Take 1 Tablet(s) Oral BID 06/19/19 25 No Stop Date Active amlodipine 10 mg tablet RxNorm: 246690 Take 1 Tablet(s) Oral QD 06/19/19 25 No Stop Date Active Eliquis 5 mg tablet RxNorm: 2963266 Take 1 Tablet(s) Oral BID 06/19/19 25 No Stop Date Active pen needle, diabetic 30 gauge x 3/16 RxNorm: Use 1 6 times per day w/insulin 06/14/19 25 026 Active pen needle, diabetic 30 gauge x 3/16 RxNorm: Use 1 needle 6 times per day w/insulin 06/14/19 25 025 Inactive nystatin 100,000 unit/gram topical powder RxNorm: 814050 Apply 1 Application Topical BID as needed abdominal/breast /groin folds 05/24/19 25 026 Active pregabalin 100 mg capsule RxNorm: 461921 Take 1 Capsule(s) Oral QAM every morning 05/22/19 25 025 Inactive nystatin 100,000 unit/gram topical powder RxNorm: 905785 Apply 1 Application Topical BID as needed abdominal/breast /groin folds 04/11/20 24 024 Inactive chlorthalidone 25 mg tablet RxNorm: 275744 Take 1 Tablet(s) Oral QAM every morning 04/06/20 24 No Stop Date Active pregabalin 150 mg capsule RxNorm: 847047 Take 1 Capsule(s) Oral QHS every night at bedtime 03/31/20 24 024 Inactive Vascepa 1 gram capsule RxNorm: 0949499 Take 2 Capsule(s) Oral BID 03/30/20 24 025 Active rosuvastatin 40 mg tablet RxNorm: 411790 1 TAB ORALLY EVERY EVENING (DX:CORONARY ARTERY DISEASE) 03/28/20 24 No Stop Date Active venlafaxine ER 75 mg capsule,extended release 24 hr RxNorm: 519235 3 CAPS (225MG) ORALLY DAILY (DX: MOOD DISORDER) 03/28/20 24 No Stop Date Active pregabalin 100 mg capsule RxNorm: 532332 Take 1 Capsule(s) Oral QAM every morning 03/20/20 Inactive cholecalciferol (vitamin D3) 1,250 mcg (50,000 unit) capsule RxNorm: 744225 Take 1 Capsule(s) Oral QW once a [...] Insulin 100 unit/mL (3 mL) subcutaneous RxNorm: 6819324 Inject 40 Unit(s) Subcutaneous BID 03/07/20 025 Inactive Please dispense one month supply. Humulin R U-500 (Concentrated) Insulin 500 unit/mL subcutaneous soln RxNorm: 851274 Inject 100 Unit(s) Subcutaneous AC before meals [...] PRN) to be use with new Accu [place]flake meter 03/04/20 Inactive ok to substitute with any covered alternative test strip FreeStyle Chema 2 Sensor kit RxNorm: Use UD as directed 03/02/20 24 025 Inactive FreeStyle Chema 2 Sensor kit RxNorm: Use UD as directed 03/02/20 Inactive Pen Needle 30 gauge x 516 RxNorm: Pen(s) Use 1 needle as directed TID 03/02/20 Inactive nystatin 100,000 unit/gram topical powder RxNorm: 869536 Apply 1 Application Topical BID as needed [...] (Concentrated) Insulin 500 unit/mL subcutaneous soln RxNorm: 627870 Inject 100 Unit(s) Subcutaneous TID 02/17/20 24 024 Inactive Humulin R U-500 (Concentrated) Insulin 500 unit/mL subcutaneous soln RxNorm: 640603 Inject 100 Unit(s) Subcutaneous TID 02/10/20 24 024 Inactive Basaglar KwikPen U-100 Insulin 100 unit/mL (3 mL) subcutaneous RxNorm: 2507066 Inject 30 Unit(s) Subcutaneous BID 02/10/20 24 024 Inactive Please dispense one month supply. pregabalin 100 mg capsule RxNorm: 003572 Take 1 Capsule(s) Oral QAM every morning 02/07/20 24 024 Inactive isosorbide mononitrate ER 60 mg tablet,extended release 24 hr RxNorm: 546945 Take 1 Tablet(s) Oral QD 02/01/20 025 Active aripiprazole 15 mg tablet RxNorm: 447883 Take 1/2 Tablet(s) Oral QD 02/01/20 24 Active torsemide 20 mg tablet RxNorm: 637747 1 TAB ORALLY DAILY (DX: EDEMA) 01/27/20 No Stop Date Active potassium chloride ER 20 mEq tablet,extended release(part/cryst) RxNorm: 0920671 2 TABS (40MEQ) ORALLY TWICE DAILY (DX: HYPOKALEMIA) 01/27/20 24 025 Inactive cephalexin 500 mg capsule RxNorm: 342205 Take 1 Capsule(s) Oral QID 12/17/19 24 024 Inactive cephalexin 500 mg capsule RxNorm: 623361 Take 1 Capsule(s) Oral QID 12/17/19 24 024 Inactive acetaminophen 500 mg tablet RxNorm: 455256 (MAX APAP:4GM/24HR) Take 1 Tablet(s) Oral TID as needed for pain 12/10/19 24 024 Inactive torsemide 20 mg tablet RxNorm: 226464 Take 1 Tablet(s) Oral QD 10/26/19 24 Inactive potassium chloride ER 20 mEq tablet,extended release RxNorm: 980720 Take 2 Tablet(s) Oral BID 10/26/19 24 025 Inactive torsemide 20 mg tablet RxNorm: 433828 Take 1 Tablet(s) Oral QD 10/26/19 24 Inactive potassium chloride ER 20 mEq tablet,extended release RxNorm: 933650 Take 2 Tablet(s) Oral BID 10/26/19 24 024 Inactive Artificial Tears (PF) 0.1 %-0.3 % drops in a dropperette RxNorm: 556689 Apply 1-2 Drop(s) Both eyes BID as needed 09/28/19 24 Inactive erythromycin 5 mg/gram (0.5 %) eye ointment RxNorm: 077863 Apply 1 Application Both eyes QHS every night at bedtime Instill ~1 cm ribbon into affected eye 09/28/19 24 024 Inactive Artificial Tears (PF) 0.1 %-0.3 % drops in a dropperette RxNorm: 753293 Apply 1-2 Drop(s) Both eyes BID as needed 09/28/19 24 Inactive erythromycin 5 mg/gram (0.5 %) eye ointment RxNorm: 294960 Apply 1 Application Both eyes QHS every night at bedtime Instill ~1 cm ribbon into affected eye 09/28/19 24 Inactive acetaminophen 500 mg tablet RxNorm: 723015 (MAX APAP:4GM/24HR) Take 1 Tablet(s) Oral TID as needed for pain 09/24/19 24 Inactive carvedilol 25 mg tablet RxNorm: 137413 Take 1 Tablet(s) Oral QD 09/08/19 24 No Stop Date Active pregabalin 100 mg capsule RxNorm: 718058 Take 1 Capsule(s) Oral QAM every morning 09/07/19 24 024 Inactive ezetimibe 10 mg tablet RxNorm: 822232 Take 1 Tablet(s) Oral QD 07/13/19 24 025 Inactive bisacodyl 10 mg rectal suppository RxNorm: 712258 Insert 1 Suppository Rectal QD as needed 07/13/19 24 No Stop Date Active polyethylene glycol 3350 17 gram/dose oral powder RxNorm: 133316 Take 17 Gram(s) Oral BID as needed mix in 4-8ox water 07/13/19 24 025 Inactive ketoconazole 2 % shampoo RxNorm: 580756 Apply 1 Application Topical UD as directed 07/13/19 24 No Stop Date Active Ozempic 1 mg/dose (4 mg/3 mL) subcutaneous pen injector RxNorm: 2037742 Inject 1 Milligram(s) Subcutaneous QW once a week 07/13/19 24 No Stop Date Active Guaifenesin AC 10 mg-100 mg/5 mL oral liquid RxNorm: 819219 Take 10 Milliliter(s) Oral Q4H every four hours as needed 07/13/19 24 No Stop Date Active ammonium lactate 12 % topical cream RxNorm: 128385 Apply 1 Application Topical BID 07/13/19 24 025 Inactive hydrocortisone 2.5 % topical cream RxNorm: 216345 Apply 1 Application Topical BID as needed 07/13/19 No Stop Date Active rosuvastatin 20 mg sprinkle capsule RxNorm: 2627712 Take 1 Capsule(s) Oral QD 07/13/19 24 025 Inactive rosuvastatin 40 mg tablet RxNorm: 078115 Take 1 Tablet(s) Oral QPM every evening 07/13/19 24 024 Inactive aripiprazole 15 mg tablet RxNorm: 084046 Take 1/2 Tablet(s) Oral QD 07/13/19 24 024 Inactive isosorbide mononitrate ER 60 mg tablet,extended release 24 hr RxNorm: 474627 Take 1 Tablet(s) Oral QD 07/13/19 24 024 Inactive Vascepa 1 gram capsule RxNorm: 5031597 Take 2 Capsule(s) Oral BID 07/13/19 24 024 Inactive venlafaxine ER 75 mg capsule,extended release 24 hr RxNorm: 568204 Take 3 Capsule(s) Oral QD 07/13/19 24 024 Inactive Basaglar KwikPen U-100 Insulin 100 unit/mL (3 mL) subcutaneous RxNorm: 9703851 Inject 30U SubQ twice daily 07/07/19 24 024 Inactive Please dispense one month supply. Basaglar KwikPen U-100 Insulin 100 unit/mL (3 mL) subcutaneous RxNorm: 0670536 Inject 30U SubQ twice daily 07/07/19 24 024 Inactive Please dispense one month supply. pregabalin 150 mg capsule RxNorm: 215926 Take 1 Capsule(s) Oral QHS every night at bedtime 07/05/19 24 024 Inactive pregabalin 150 mg capsule RxNorm: 539353 Take 1 Capsule(s) Oral QHS every night at bedtime 07/05/19 24 024 Inactive polyethylene glycol 3350 17 gram/dose oral powder RxNorm: 298765 Take 1 Packet Oral QD as needed (1 packet = 17g) mix with 4-8oz of liquid 06/15/19 24 024 Inactive bisacodyl 10 mg rectal suppository RxNorm: 952973 Insert one suppository per rectum once daily as needed for constipation 06/15/19 24 024 Inactive bisacodyl 10 mg rectal suppository RxNorm: 742195 Insert one suppository per rectum once daily as needed for constipation 06/15/19 24 024 Inactive pregabalin 100 mg capsule RxNorm: 670937 Take 1 Capsule(s) Oral QAM every morning 04/27/20 024 Inactive Levemir FlexPen 100 unit/mL (3 mL) solution subcutaneous insulin pen RxNorm: 545289 Inject 30 Unit(s) Subcutaneous BID 04/27/20 23 024 Inactive rosuvastatin 40 mg tablet RxNorm: 659865 Take 1 Tablet(s) Oral QPM every evening 04/16/20 024 Inactive D/C rosuvastatin 20mg venlafaxine ER 75 mg capsule,extended release 24 hr RxNorm: 429553 Take 3 Capsule(s) Oral QD 04/14/20 023 Inactive pregabalin 100 mg capsule RxNorm: 679518 Take 1 Capsule(s) Oral QAM every morning [...] strip clotrimazole 1 % topical cream RxNorm: 108883 Take apply topically to abdominal folds twice daily for 14 days 03/12/20 024 Inactive Ozempic 1 mg/dose (4 mg/3 mL) subcutaneous pen injector RxNorm: 7420744 Inject 1 Milligram(s) Subcutaneous QW once a week 03/11/20 23 023 Inactive rosuvastatin 20 mg tablet RxNorm: 247013 Take 1 Tablet(s) Oral QD 02/26/20 23 023 Inactive d/c pravastatin 80mg Ozempic 1 mg/dose (4 mg/3 mL) subcutaneous pen injector RxNorm: 7906245 Inject 1 Milligram(s) Subcutaneous QW once a week 02/20/20 023 Inactive pregabalin 150 mg capsule RxNorm: 228353 Take 1 Capsule(s) Oral HS at bed time 02/19/20 23 023 Inactive pregabalin 100 mg capsule RxNorm: 568435 Take 1 Capsule(s) Oral QAM every morning 02/18/20 23 023 Inactive venlafaxine ER 75 mg capsule,extended release 24 hr RxNorm: 099268 Take 3 Capsule(s) Oral QD 02/04/20 23 023 Inactive FreeStyle Chema 2 Sensor kit RxNorm: use as directed 02/04/20 023 Inactive FreeStyle Chema 2 Sensor kit RxNorm: use as directed 02/04/20 23 024 Inactive fluconazole 150 mg tablet RxNorm: 535820 Take 1 Tablet(s) Oral on day 3 and on day 6 02/03/20 23 024 Inactive venlafaxine ER 150 mg capsule,extended release 24 hr RxNorm: 990138 Take 1 Capsule(s) Oral QD 02/03/20 23 023 Inactive chlorthalidone 25 mg tablet RxNorm: 045782 Take 1 Tablet(s) Oral QAM every morning 02/03/20 23 024 Inactive acetaminophen 500 mg tablet RxNorm: 223297 1 TABLET ORALLY 3 TIMES DAILY (MAX APAP:4GM/24HR) 12/15/19 23 023 Inactive clotrimazole 1 % topical cream RxNorm: 863659 apply 1g topically to top of feet and in between toes BID 12/09/19 23 025 Inactive potassium chloride ER 20 mEq tablet,extended release RxNorm: 134026 Take 1 Tablet(s) Oral BID 12/09/19 23 024 Inactive d/c 20mEq once daily (sent from hospital) nystatin 100,000 unit/gram topical powder RxNorm: 103699 APPLY TO AFFECTED AREAS TOPICALLY 2 TIMES DAILY 11/21/19 23 023 Inactive Nystop 100,000 unit/gram topical powder RxNorm: 122471 Apply to abd folds, under breasts and L side of groin Topical BID x 14 days, then BID PRN 11/20/19 023 Inactive dx: yeast dermatitis [place] Ultra Strength 4 %-30 %-10 % topical cream RxNorm: 457459 Apply 1 Gram(s) Topical QID PRN to feet and legs for neuropathic pain 11/11/19 024 Inactive clotrimazole 1 % topical cream RxNorm: 897641 Apply 1/2 Gram(s) Topical BID Apply to affected areas of groin, periarea, and abdominal topically 2 times daily 11/10/19 023 Inactive hydrocortisone 2.5 % topical cream RxNorm: 713689 Apply 1/2 Gram(s) Topical BID as needed 11/10/19 024 Inactive Levemir FlexPen 100 unit/mL (3 mL) solution subcutaneous insulin pen RxNorm: 082902 Inject 30 Unit(s) Subcutaneous BID 10/07/19 023 Inactive Humulin R U-500 (Concentrated) Insulin 500 unit/mL subcutaneous soln RxNorm: 624296 Inject 100 Unit(s) Subcutaneous TID 10/07/19 024 Inactive Ozempic 0.25 mg or 0.5 mg (2 mg/3 mL) subcutaneous pen injector RxNorm: 2925183 Inject 1/2 Milligram(s) Subcutaneous QW once a week 10/07/19 024 Inactive aripiprazole 15 mg tablet RxNorm: 124511 1/2 TAB (7.5MG) ORALLY DAILY (DX:MAJOR DEPRESSIVE DISORDER) 09/23/19 023 Inactive Accu-Chek Guide test strips RxNorm: Use 1 Test Strip QID 09/15/19 23 023 Inactive ok to substitute with any covered alternative test strip Lancets,Thin 28 gauge RxNorm: Use 1 as directed QID 09/15/19 23 023 Inactive torsemide 20 mg tablet RxNorm: 964153 Take 1 Tablet(s) Oral BID 09/09/19 23 024 Inactive d/c once daily dosing carvedilol 25 mg tablet RxNorm: 413890 Take 1 Tablet(s) Oral QD 08/25/19 23 024 Inactive pregabalin 150 mg capsule RxNorm: 715136 1 Capsule(s) Oral HS at bed time 08/18/19 23 023 Inactive pregabalin 100 mg capsule RxNorm: 121091 1 Capsule(s) Oral QAM every morning 08/18/19 23 023 Inactive carvedilol 25 mg tablet RxNorm: 884602 1 Tablet(s) Oral QD 07/28/19 23 023 Inactive lisinopril 20 mg tablet RxNorm: 700036 Give 1 Tablet(s) Oral QD 07/28/19 23 023 Inactive Lyrica 150 mg capsule RxNorm: 604126 Take 1 Capsule(s) Oral QHS every night at bedtime 07/19/19 23 023 Inactive d/c 100mg dose Diflucan 150 mg tablet RxNorm: 600003 Take 1 Tablet(s) Oral QD repeat on day 3 and 6 07/19/19 23 023 Inactive pregabalin 100 mg capsule RxNorm: 387605 Take 1 Capsule(s) Oral QAM every morning 07/19/19 23 023 Inactive gatifloxacin 0.5 % eye drops RxNorm: 105598 Instill 1 Drop(s) as directed TID Instill 1 drop in to affected eye(s) starting 1 day prior to surgery and continue until gone (do not exceed 4 weeks). 07/13/19 23 023 Inactive carvedilol 25 mg tablet RxNorm: 692925 2 Tablet(s) Oral BID 07/13/19 23 023 Inactive Humulin R Regular U-100 Insulin 100 unit/mL injection solution RxNorm: 377007 85 Unit(s) Injection TID 07/13/19 23 023 Inactive ketorolac 0.5 % eye drops RxNorm: 953281 Instill 1 Drop(s) as directed QID Instill 1 drop into affected eye(s) 4 times daily starting 1 day prior to surgery and continue until gone (do not exceed 4 weeks). 07/13/19 23 023 Inactive Diflucan 150 mg tablet RxNorm: 707588 Take 1 Tablet(s) Oral QD repeat on day 3 and 6 06/30/19 23 023 Inactive Accu-Chek Guide test strips RxNorm: Use 1 Test Strip QID Use 1 test strip to monitor blood glucose 4 times daily and as needed. Dx:E11.42. 06/23/19 23 023 Inactive ok to substitute with any covered alternative test strip dextromethorphan-gu aifenesin 10 mg-100 mg/5 mL oral liquid RxNorm: 692226 Take 10 Milliliter(s) Oral every 4 hours as needed for cough 06/19/19 23 023 Inactive dextromethorphan-gu aifenesin 10 mg-100 mg/5 mL oral liquid RxNorm: 266069 Take 10 Milliliter(s) Oral every 4 hours as needed for cough 06/19/19 023 Inactive Lyrica 150 mg capsule RxNorm: 333663 Take 1 Capsule(s) Oral QHS every night at bedtime 06/18/19 23 023 Inactive d/c 100mg dose aripiprazole 15 mg tablet RxNorm: 816144 1/2 TAB (7.5MG) ORALLY DAILY (DX:MAJOR DEPRESSIVE DISORDER) 06/05/19 23 023 Inactive pregabalin 100 mg capsule RxNorm: 048382 1 Capsule(s) Oral QAM every morning 06/02/19 23 023 Inactive Banophen 50 mg capsule RxNorm: 9500760 Take 1 Capsule(s) Oral Q6H every 6 hours as needed 05/19/19 23 No Stop Date Active Novolog Flexpen U-100 Insulin aspart 100 unit/mL (3 mL) subcutaneous RxNorm: 9607272 Inject 10 Unit(s) Subcutaneous QHS every night at bedtime with nighttime snack 04/08/20 22 022 Inactive Novolog Flexpen U-100 Insulin aspart 100 unit/mL (3 mL) subcutaneous RxNorm: 0283097 Inject 42 Unit(s) Subcutaneous TID in addition to sliding scale 04/08/20 022 Inactive d/c 36u albuterol sulfate HFA 90 mcg/actuation aerosol inhaler RxNorm: 8955225 Take 2 Puff(s) Inhalation Q4H every four hours as needed as needed for SOB, cough, or wheezing 04/07/20 030 Active Banophen 50 mg capsule RxNorm: 6917893 Take 1 Capsule(s) Oral Q6H every 6 hours as needed 04/06/20 023 Inactive diphenhydramine 50 mg tablet RxNorm: 5179880 Take 1 Tablet(s) Oral Q6H every 6 hours as needed 04/06/20 022 Inactive diphenhydramine 50 mg tablet RxNorm: 7344517 1 Tablet(s) Oral Q6H every 6 hours as needed 04/06/20 022 Inactive Abilify 15 mg tablet RxNorm: 735966 1/2 Tablet(s) Oral QD 03/10/20 023 Inactive Shingrix (PF) 50 mcg/0.5 mL intramuscular suspension, kit RxNorm: 0128551 Administer 1/2 Milliliter(s) Intramuscular QD one time shingrix step 2 ( step 1 given 11/04/21) WITH needle - Nursing please administer upon arrival and once administered post a bridge message with date of administration, mobile patrol officer, expiration date, and lot# so we can update [facility] 02/18/20 22 022 Inactive dispense with needle Shingrix (PF) 50 mcg/0.5 mL intramuscular suspension, kit RxNorm: 8358771 Administer 1/2 Milliliter(s) Intramuscular QD one time shingrix step 2 ( step 1 given 11/04/21) WITH needle - Nursing please administer upon arrival and once administered post a bridge message with date of administration, mobile patrol officer, expiration date, and lot# so we can update [facility] 02/18/20 22 022 Inactive dispense with needle polyethylene glycol 3350 17 gram/dose oral powder RxNorm: 854498 Take 17=1 capful Gram(s) Oral QD mix with 4-8oz of liquid 01/08/20 22 025 Inactive take this in addition to BID prn order Lyrica 100 mg capsule RxNorm: 335327 Take 1 Capsule(s) Oral QAM every morning 01/08/20 22 022 Inactive d/c 50mg dose acetaminophen 500 mg tablet RxNorm: 659425 Take 1 Tablet(s) Oral TID 01/08/20 22 022 Inactive d/c PRN order Lyrica 150 mg capsule RxNorm: 441184 Take 1 Capsule(s) Oral QHS every night at bedtime 01/08/20 22 023 Inactive d/c 100mg dose Abilify 5 mg tablet RxNorm: 634882 Take 1 Tablet(s) Oral QD take 1 tab po QD #30 refill 5 dx: MDD 12/12/19 22 022 Inactive Abilify 5 mg tablet RxNorm: 150747 Take 1 Tablet(s) Oral QD take 1 tab po QD #30 refill 5 dx: MDD 12/12/19 22 022 Inactive Novolog Flexpen U-100 Insulin aspart 100 unit/mL (3 mL) subcutaneous RxNorm: 8617015 Inject 42 Unit(s) Subcutaneous TID in addition to sliding scale 12/10/19 22 022 Inactive d/c 36u chlorthalidone 25 mg tablet RxNorm: 809955 Take 1 Tablet(s) Oral QAM every morning 12/10/19 22 023 Inactive pregabalin 50 mg capsule RxNorm: 611578 Take 1 Capsule(s) Oral QAM every morning 11/12/19 22 022 Inactive tetanus-diphtheria toxoids-Td 2 Lf unit-2 Lf unit/0.5 mL IM suspension RxNorm: 139 Take 0.5 Miscellaneous Intramuscular 11/12/19 22 022 Inactive need tdap - nursing to administer upon arrival pregabalin 50 mg capsule RxNorm: 687485 Take 1 Capsule(s) Oral QAM every morning 10/16/19 22 022 Inactive pregabalin 50 mg capsule RxNorm: 284695 Take 1 Capsule(s) Oral QAM every morning 10/16/19 22 022 Inactive pregabalin 50 mg capsule RxNorm: 364752 1 Capsule(s) Oral QAM every morning 10/15/19 22 Inactive Shingrix (PF) 50 mcg/0.5 mL intramuscular suspension, kit RxNorm: 8466562 Administer 1/2 Milliliter(s) Intramuscular one time Nursing please administer upon arrival and once administered post a bridge message with date of administration, mobile patrol officer, expiration date, and lot# so we can update [facility]. 10/09/19 22 Inactive shingrix step 1 Shingrix (PF) 50 mcg/0.5 mL intramuscular suspension, kit RxNorm: 0160649 Administer 1/2 Milliliter(s) Intramuscular one time Nursing please administer upon arrival and once administered post a bridge message with date of administration, mobile patrol officer, expiration date, and lot# so we can update [facility]. 10/09/19 22 Inactive shingrix step 1 tetanus,diphtheria toxoid ped [...] aspart 100 unit/mL (3 mL) subcutaneous RxNorm: 0319811 Inject 10 Unit(s) Subcutaneous QHS every night at bedtime with nighttime snack 10/08/19 22 Inactive Shingrix (PF) 50 mcg/0.5 mL intramuscular suspension, kit RxNorm: 5749426 ADMINISTER 2-DOSE SERIES PER CDC GUIDELINES 10/08/19 22 Active Shingrix (PF) 50 mcg/0.5 mL intramuscular suspension, kit RxNorm: 9290434 ADMINISTER 2-DOSE SERIES PER CDC GUIDELINES 10/08/19 22 Inactive Novolog Flexpen U-100 Insulin aspart 100 unit/mL (3 mL) subcutaneous RxNorm: 2347195 Inject 36 Unit(s) Subcutaneous TID in addition to sliding scale 10/08/19 Inactive cholecalciferol (vitamin D3) 1,250 mcg (50,000 unit) capsule RxNorm: 589426 Take 1 Capsule(s) Oral QW once a week 10/08/19 Inactive Novofine Autocover 30 gauge x 1/3 needle RxNorm: Use 1 Miscellaneous UD as directed Use 1 needle as directed to administer insulin 5 times a day Dx:E11.42. 10/03/19 022 Inactive ok to substitute with any covered alternative pen needle benzoyl peroxide 10 % topical cleanser RxNorm: 042928 Apply 1 Application Topical QD apply to face, wash rinse and dry once daily (may change to QOD if drying) 08/19/19 022 Inactive (%covered by insurance) #60ml refill 11 dx: acne benzoyl peroxide 10 % topical cleanser RxNorm: 978593 Apply 1 Application Topical QD apply to face, wash rinse and dry once daily (may change to QOD if drying) 08/19/19 022 Inactive (%covered by insurance) #60ml refill 11 dx: acne benzoyl peroxide 10 % topical cleanser RxNorm: 824946 Apply 1 Application Topical QD apply to face, wash rinse and dry once daily (may change to QOD if drying) 08/19/19 022 Inactive (%covered by insurance) #60ml refill 11 dx: acne Lyrica 50 mg capsule RxNorm: 414383 Take 1 Capsule(s) Oral QAM every morning Take 1 capsule by mouth once daily 08/19/19 022 Inactive benzoyl peroxide 10 % topical cleanser RxNorm: 025808 Apply 1 Application Topical QD apply to face, wash rinse and dry once daily (may change to QOD if drying) 08/19/19 022 Inactive (%covered by insurance) #60ml refill 11 dx: acne Lyrica 100 mg capsule RxNorm: 559064 Take 1 Capsule(s) Oral QHS every night at bedtime Take 1 capsule by mouth once daily at bedtime 08/19/19 22 022 Inactive Lyrica 100 mg capsule RxNorm: 948648 Take 1 Capsule(s) Oral QHS every night at bedtime Take 1 capsule by mouth once daily at bedtime 08/16/19 22 022 Inactive Lyrica 50 mg capsule RxNorm: 409593 Take 1 Capsule(s) Oral QAM every morning Take 1 capsule by mouth once daily 08/16/19 22 022 Inactive Levemir FlexTouch U-100 Insulin 100 unit/mL (3 mL) subcutaneous pen RxNorm: 937641 Inject 86 Unit(s) Subcutaneous BID 08/05/19 22 022 Inactive d/c 83units BID Lyrica 100 mg capsule RxNorm: 493248 Take 1 Capsule(s) Oral QHS every night at bedtime Take 1 capsule by mouth once daily at bedtime 07/14/19 22 022 Inactive Lyrica 50 mg capsule RxNorm: 658873 Take 1 Capsule(s) Oral QAM every morning Take 1 capsule by mouth once daily 07/14/19 22 022 Inactive Levemir FlexTouch U-100 Insulin 100 unit/mL (3 mL) subcutaneous pen RxNorm: 412192 Inject 83 Unit(s) Subcutaneous BID 07/08/19 22 [...] test strip hydralazine 50 mg tablet RxNorm: 639979 Take 1 Tablet(s) Oral QID 05/05/20 21 022 Inactive venlafaxine ER 225 mg tablet,extended release 24 hr RxNorm: 062061 Take 1 Tablet(s) Oral QD 05/05/20 21 021 Inactive venlafaxine ER 225 mg tablet,extended release 24 hr RxNorm: 294790 Take 1 Tablet(s) Oral QD 05/05/20 21 022 Inactive isosorbide mononitrate ER 30 mg tablet,extended release 24 hr RxNorm: 169361 Take 1 Tablet(s) Oral QD 05/05/20 21 024 Inactive hydralazine 50 mg tablet RxNorm: 887730 Take 1 Tablet(s) Oral QID 05/05/20 21 021 Inactive aspirin 81 mg tablet,delayed release RxNorm: 476764 Take 1 Tablet(s) Oral QD 03/31/20 21 022 Inactive Vitamin D2 1,250 mcg (50,000 unit) capsule RxNorm: 1560862 Take 1 Capsule(s) Oral QW once a week x 12 weeks 03/31/20 21 022 Inactive Vitamin D2 1,250 mcg (50,000 unit) capsule RxNorm: 7502619 Take 1 Capsule(s) Oral QW once a week 03/31/20 21 021 Inactive Zetia 10 mg tablet RxNorm: 278328 Take 1 Tablet(s) Oral QD 03/31/20 024 Inactive Zetia 10 mg tablet RxNorm: 726316 Take 1 Tablet(s) Oral QD 03/31/20 021 Inactive hydralazine 25 mg tablet RxNorm: 837121 Take 1 Tablet(s) Oral QID 03/31/20 021 Inactive hydralazine 25 mg tablet RxNorm: 460278 Take 1 Tablet(s) Oral QID 03/31/20 021 Inactive hydralazine 10 mg tablet RxNorm: 427711 Take 1 Tablet(s) Oral QID 03/03/20 021 Inactive cephalexin 500 mg tablet RxNorm: 324615 Take 1 Tablet(s) Oral QID 02/27/20 021 Inactive cephalexin 500 mg tablet RxNorm: 175984 Take 1 Tablet(s) Oral QID 02/27/20 021 Inactive lisinopril 40 mg tablet RxNorm: 096846 Take 1 Tablet(s) Oral QD 02/11/20 023 Inactive Eliquis 5 mg tablet RxNorm: 7998087 Take 1 Tablet(s) Oral BID 01/05/20 21 025 Inactive Eliquis 5 mg tablet RxNorm: 8781987 Take 2 Tablet(s) Oral QD 01/01/20 21 021 Inactive Lyrica 50 mg capsule RxNorm: 446573 Take 1 Capsule(s) Oral QAM every morning 12/24/19 21 021 Inactive Lyrica 100 mg capsule RxNorm: 169576 Take 1 Capsule(s) Oral QHS every night at bedtime 12/24/19 21 021 Inactive clotrimazole 1 % topical cream RxNorm: 858812 Apply to right foot and toes Topical BID 12/04/19 21 023 Inactive metoprolol succinate ER 200 mg tablet,extended release 24 hr RxNorm: 000945 Take 1 Tablet(s) Oral QD 12/04/19 21 023 Inactive ciprofloxacin 500 mg tablet RxNorm: 226050 Take 1 Tablet(s) Oral QD 11/30/19 21 021 Inactive DX ofloxacin otic drops Accu-Chek Guide test strips RxNorm: USE 1 TO CHECK GLUCOSE 4 TIMES DAILY AND NEEDED 11/15/19 21 023 Inactive Blood Glucose Test strips RxNorm: Use 1 Test Strip QID at PRN 11/05/19 21 023 Inactive E11.42 lisinopril 30 mg tablet RxNorm: 273987 Take 1 Tablet(s) Oral QD 10/30/19 21 021 Inactive lisinopril 20 mg tablet RxNorm: 723909 Take 1 Tablet(s) Oral QD 10/23/19 21 021 Inactive lisinopril 20 mg tablet RxNorm: 095412 Take 1 Tablet(s) Oral QD 10/23/19 21 021 Inactive lisinopril 10 mg tablet RxNorm: 630188 Take 1 Tablet(s) Oral QD 10/02/19 021 Inactive icosapent ethyl 1 gram capsule RxNorm: 4543953 Take 2 Capsule(s) (2 gm) Oral BID with meals 09/12/19 21 024 Inactive Okay to dispense one 2gm tab if you have that available. icosapent ethyl 1 gram capsule RxNorm: 4775628 Take 2 Capsule(s) Oral BID 09/12/19 21 021 Inactive Okay to dispense one 2gm tab if you have that available. amlodipine 10 mg tablet RxNorm: 715954 Take 1 Tablet(s) Oral QD 09/04/19 21 021 Inactive aspirin 81 mg tablet,delayed release RxNorm: 410539 Take 1 Tablet(s) Oral QD 09/04/19 21 021 Inactive Levemir FlexTouch U-100 Insulin 100 unit/mL (3 mL) subcutaneous pen RxNorm: 556370 Inject 150 Unit(s) Subcutaneous BID 09/04/19 21 022 Inactive venlafaxine ER 150 mg tablet,extended release 24 hr RxNorm: 000706 Take 1 Tablet(s) Oral QD 09/04/19 21 021 Inactive clotrimazole-betame thasone 1 %-0.05 % topical cream RxNorm: 884525 Apply to rash on red area on left abdomen/chest Topical BID 08/10/19 21 021 Inactive amlodipine 5 mg tablet RxNorm: 152565 Take 1 Tablet(s) Oral QD 07/31/19 21 021 Inactive cephalexin 500 mg tablet RxNorm: 217059 Take 1 Tablet(s) Oral BID BID - Twice Daily 07/31/19 021 Inactive Start 08/01/20 pantoprazole 40 mg tablet,delayed release RxNorm: 821460 Take 1 Tablet(s) Oral QAM every morning 07/08/19 025 Inactive senna 8.6 mg tablet RxNorm: 748773 Take 1 Tablet(s) Oral QD 07/08/19 025 Inactive carbamazepine 200 mg tablet RxNorm: 523325 Take 1 Tablet(s) Oral BID 07/08/19 025 Inactive clopidogrel 75 mg tablet RxNorm: 472426 Take 1 Tablet(s) Oral QD 07/08/19 021 Inactive Blood Glucose Test strips RxNorm: Use 1 Test Strip QID at PRN 07/08/19 021 Inactive E11.42 Novolog Flexpen U-100 Insulin aspart 100 unit/mL (3 mL) subcutaneous RxNorm: 9595551 Administer per sliding scale Milliliter(s) Subcutaneous TID 151-200: 10 u; 201-250: 20 u; 251-300: 30 u; 301-350: 40 u; 351-400: 50 u. 07/08/19 022 Inactive lisinopril 5 mg tablet RxNorm: 061196 Take 1 Tablet(s) Oral QD 07/08/19 021 Inactive Novolog Flexpen U-100 Insulin aspart 100 unit/mL (3 mL) subcutaneous RxNorm: 7113476 Inject 85 Unit(s) Subcutaneous TID 07/08/19 022 Inactive pravastatin 80 mg tablet RxNorm: 732190 Take 1 Tablet(s) Oral QHS every night at bedtime 07/08/19 023 Inactive clotrimazole 1 % topical cream RxNorm: 132990 Apply to bilateral groin areas Topical BID 07/08/19 022 Inactive metoprolol succinate ER 200 mg tablet,extended release 24 hr RxNorm: 122615 Take 1 Tablet(s) Oral QD 07/08/19 021 Inactive Vitamin D3 25 mcg (1,000 unit) tablet RxNorm: 652203 Take 1 Tablet(s) Oral QD 07/08/19 021 Inactive isosorbide dinitrate 30 mg tablet RxNorm: 819889 Take 1 Tablet(s) Oral QD 07/08/19 021 Inactive Levemir FlexTouch U-100 Insulin 100 unit/mL (3 mL) subcutaneous pen RxNorm: 512282 Inject 140 Unit(s) Subcutaneous BID 07/08/19 021 Inactive torsemide 20 mg tablet RxNorm: 443085 Take 1 Tablet(s) Oral QD 07/08/19 023 Inactive venlafaxine 75 mg tablet RxNorm: 071152 Take 1 Tablet(s) Oral QD 07/08/19 021 Inactive acetaminophen 500 mg tablet RxNorm: 527138 Take 1 Tablet(s) Oral TID as needed for headache 06/18/19 021 Inactive acetaminophen 500 mg tablet RxNorm: 982106 Take 1 Tablet(s) Oral TID as needed for headache 06/18/19 021 Inactive Lyrica 100 mg capsule RxNorm: 110319 Take 1 Capsule(s) Oral QHS every night at bedtime 06/11/19 021 Inactive Lyrica 50 mg capsule RxNorm: 562563 Take 1 Capsule(s) Oral QAM every morning 06/10/19 21 021 Inactive hydrocortisone 2.5 % topical cream RxNorm: 243248 Apply to bilateral groin creases Topical BID 05/15/20 20 021 Inactive clotrimazole 1 % topical cream RxNorm: 465236 Apply to bilateral groin areas Topical BID 05/15/20 20 021 Inactive Lyrica 50 mg capsule RxNorm: 137131 Take 1 Capsule(s) Oral QAM every morning 05/14/20 20 Inactive Lyrica 100 mg capsule RxNorm: 571928 Take 1 Capsule(s) Oral QHS every night [...] Inactive Nystop 100,000 unit/gram topical powder RxNorm: 012056 Apply to abd folds, under breasts and L side of groin Topical BID x 14 days, then BID PRN 04/08/20 20 Inactive dx: yeast dermatitis Lyrica 100 mg capsule RxNorm: 915180 Take 1 Capsule(s) Oral QHS every night at bedtime 03/13/20 20 Inactive Lyrica 50 mg capsule RxNorm: 604672 Take 1 Capsule(s) Oral QAM every morning 03/13/20 20 Inactive ketoconazole 2 % shampoo RxNorm: 996972 Apply Topical two times a week with showers 03/11/20 20 024 Inactive cholecalciferol (vitamin D3) 50 mcg (2,000 unit) tablet RxNorm: 840456 Take 1 Tablet(s) Oral QD 03/11/20 20 021 Inactive Zetia 10 mg tablet RxNorm: 003136 Take 1 Tablet(s) Oral QD 03/07/20 20 021 Inactive Zetia 10 mg tablet RxNorm: 514510 Take 1 Tablet(s) Oral QD 03/07/20 20 020 Inactive Lyrica 50 mg capsule RxNorm: 277892 Take 1 Capsule(s) Oral QAM every morning 02/15/20 20 020 Inactive Lyrica 100 mg capsule RxNorm: 030756 Take 1 Capsule(s) Oral QHS every night at bedtime 02/15/20 20 020 Inactive Lyrica 100 mg capsule RxNorm: 978299 Take 1 Capsule(s) Oral QHS every night at bedtime 02/15/20 20 020 Inactive Lyrica 50 mg capsule RxNorm: 109838 Take 1 Capsule(s) Oral QAM every morning 02/15/20 Inactive metoprolol succinate ER 200 mg tablet,extended release 24 hr RxNorm: 997746 Take 1 Tablet(s) Oral QD 08/12/19 025 Inactive loperamide 2 mg capsule RxNorm: 779813 Take 1 Capsule(s) Oral QID as needed 09/06/19 25 025 Inactive hydralazine 50 mg tablet RxNorm: 957420 Take 1 Tablet(s) Oral QID 08/12/19 23 025 Inactive venlafaxine ER 75 mg capsule,extended release 24 hr RxNorm: 900015 Take 3 Capsule(s) Oral QD 06/12/19 22 023 Inactive polyethylene glycol 3350 17 gram/dose oral powder RxNorm: 235607 Take 17=1 capful Gram(s) Oral BID as needed mix with 4-8oz of liquid 06/12/19 22 024 Inactive icosapent ethyl 1 gram capsule RxNorm: 8857424 Take 2 Capsule(s) (2 gm) Oral BID with meals 10/07/19 23 023 Inactive Okay to dispense one 2gm tab if you have that available. Levemir FlexTouch U-100 Insulin 100 unit/mL (3 mL) subcutaneous pen RxNorm: 870709 Inject 80 Unit(s) Subcutaneous BID 07/14/19 23 023 Inactive Soft Touch Lancets RxNorm: miscellaneous 03/04/20 24 025 Inactive Novolog Flexpen U-100 Insulin aspart 100 unit/mL (3 mL) subcutaneous RxNorm: 9364857 Insert 30 Unit(s) Subcutaneous TID with meals [...] Planned Activity Notes Codes Status Date Referral: [facility] [address] [id number] [place] Kdkaaljgh59/06/2025Referral: [facility]/Endocrinology WPtel: [address] [id number] [place]ReferralNo Records Osprifqu57/24/2025Referral: [facility] WPtel: [address], [address] [id number] [place]erralRecords Vuncjkhm79/08/2023Referral: [facility] WPtel: [address] [id number] IMBvjbwhruBasddncyf10/12/2022eferral: General CardiologyReferralCompleted 1Referral: General PsychologistReferralClosedReferral: General PsychiatristReferralPatient/Family [...] Sister Jyotsna involved in his care cell# [phone] Guardian: Giulia (tapan met in person 09/01/21), [...] appointment 05.26.2024 with Jessa Webster MD at [facility]. Start Pioglitazone 15 mg QD. Stop Basaglar insulin. Increase Ozempic 2 mg once wkly. Continue Humalin R U-500 100 units with meals TID. FOLLOW UP 2 MONTHS. If BG >400 add 50 units to next scheduled dose of Humalin R U 500 insulin 06/12/2024
--- OUTSIDE RECORDS SUMMARY | 2024-10-19 18:16 | XMS_ITS | CCD ---
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 Unknown No [...] Single 10/07/2021 Living arrangements Unknown Longterm 09/03/[address]: 981365929 No Alcohol Consum ption 09/02/2020 Allergies, Adverse Reactions, Alerts Substance Reaction Codes Entered Date Inactivated Date Status * NO KNOWN FOOD ALLERGIES Whwowfn3407/13/2023No Inactive DateActiveLISINOPRILRxNorm: 5451109 Inactive DateActiveMetformin RPdNyckdcy10 Inactive DateActive* NO KNOWN ENVIRONMENTAL HHIULIHRVDqhckxv24/27/2024 Inactive DateActive Problems Condition Codes Effective Dates Condition St atus Body mass index [BMI] 60.0-69.9, adult S NOMED CT: 881387186 ICD-10: Z68.44 ICD-9: V85.4405ActiveConstipation by delayed colonic transitICD-10: K59.01 ICD-9: 564.0105ActiveMixed incontinenceSNOMED CT: 79006964 ICD-10: N39.46 ICD-9: 788.3305ActiveType 2 diabetes mellitus with diabetic polyneuropathy, with long-term current use of insulinICD-10: E11.42 ICD-9: 250.60035ActiveDiabetic neuropathy associated with type 2 diabetes mellitusICD-10: E11.40 ICD-9: 250.60025ActiveHemorrhoidsICD-10: K64.9 ICD-9: 455.6025ActiveLower extremity edemaICD-10: R60.0 ICD-9: 782.3025ActivePVD (peripheral vascular disease)ICD-10: I73.9 ICD-9: 443.9025ActiveCandidal intertrigoICD-10: B37.2 ICD-9: 112.3015ActiveHyperlipidemia associated with type 2 diabetes mellitusICD-10: E11.69 ICD-9: 250.80015ActiveHypertensive heart disease without heart failure ICD-10: I11.9 ICD-9: 402.90015ActiveHypokalemiaICD-10: E87.6 ICD-9: 276.8015ActiveOnychogryposisICD-10: L60.2 ICD-9: 703.8015ActiveStage 2 chronic 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ICD-10: E11.22 ICD-9: 250.4001/5ActiveAdvance care planningICD-10: Z71.89 ICD-9: V65.4912/ctiveLow back painICD-10: M54.50 ICD-9: 724.210/ctiveParaparesis of both lower limbsICD-10: G82.20 ICD-9: 344.110/ctivePhysical deconditioningICD-10: R53.81 ICD-9: 799.310/ctiveAdvanced care planning - to document end of life [id number] toe of right footICD-10: S98.131A ICD-9: 895.009ctiveAnnual [...] E55.9 ICD-9: 268.909/ctiveCallus of heelICD-10: L84 ICD-9: 85099/esolvedGout due to renal impairmentICD-10: M10.30 ICD-9: 274.1005esolvedHyperhidrosis of palmsICD-10: L74.512 ICD-9: 705.2105esolvedHyperlipidemia, unspecifiedICD-10: E78.5 ICD-9: 272.405/esolvedOther penitentiary (current) drug therapyICD-10: Z79.899 ICD-9: V58.6905esolvedPain of [...] tagICD-10: L91.8 ICD-9: 701.904esolvedCoronary artery disease involving [place] coronary artery of [place] heart, angina presence unspecifiedICD-10: I25.10 ICD-9: 414.0102/4ActiveInappropriate sexual behaviorICD-10: Z72.89 ICD-9: 312.8910/3ActivePre-op evaluationICD-10: Z01.818 ICD-9: V72.8403ctiveSecondary hypertensionICD-10: I15.9 ICD-9: 405.9903ctiveDepressionICD-10: F32.9 ICD-9: 49641/esolvedDVT (deep venous thrombosis)ICD-10: I82.409 ICD-9: 453.4009esolvedEncounter for immunizationICD-10: Z23 ICD-9: V03.89092ResolvedLong term (current) use of insulinICD-10: Z79.4 2ResolvedMuscular painICD-10: M79.10 ICD-9: 729.109esolvedHypertension associated with diabetesICD-10: E11.59 ICD-9: 250.80082ResolvedContact with and (suspected) exposure to covid-19 ICD-10: Z20.822 ICD-9: V01.7908/1ResolvedOther infective acute otitis externa of left ear ICD-10: H60.392 ICD-9: 380.10081ResolvedScrotal skin lesionICD-10: N50.9 ICD-9: 608.9081ResolvedAnemia due to stage 3b chronic kidney diseaseICD- 10: N18.32 ICD-9: 285.21051ResolvedChronic kidney disease, stage 3 unspecifiedICD- 10: N18.3004esolvedContact with and (suspected) exposure to other viral communicable diseasesICD-10: Z20.828 ICD-9: V01.7902/0661JndcdhokUlwzyfhpEjlebau42/28/2020ActiveDiabetes mellitus Type 6Hacazzi60/28/2020ActiveAnemia in chronic kidney diseaseICD-10: D63.1 02/12/2020ResolvedHyperlipidemia, unspecifiedICD-10: E78.509Resolved Medications Medication Codes Instructions Start Date Stop Date Status Fill Instructions senna 8.6 mg tablet RxNorm: 525730 Take 1 Tablet(s) Oral QD as needed for constipation on day 2 of no bowel movement 08/09/19 25 025 Inactive Miralax 17 gram/dose oral powder RxNorm: 828263 Administer 17 Gram(s) Oral QD as needed for constipation on day 3 of no bowel movement 08/09/19 025 Inactive senna 8.6 mg tablet RxNorm: 736624 Take 1 Tablet(s) Oral QD as needed for constipation on day 2 of no bowel movement 08/09/19 025 Inactive Miralax 17 gram/dose oral powder RxNorm: 589599 Administer 17 Gram(s) Oral QD as needed for constipation on day 3 of no bowel movement 08/09/19 025 Inactive pregabalin 100 mg capsule RxNorm: 160782 Take 1 Capsule(s) Oral QAM every morning 08/08/19 25 025 Inactive Accu-Chek Guide test strips RxNorm: Use 1 Test Strip TID to test blood glucose, Dx: E11.42 08/02/19 No Stop Date Active ok to substitute with any covered alternative test strip Lancets,Thin 28 gauge RxNorm: Use 1 as directed TID lancet, Dx: E11.42 08/02/19 No Stop Date Active Humulin R U-500 (Concentrated) Insulin 500 unit/mL subcutaneous soln RxNorm: 518406 Inject 100 Unit(s) Subcutaneous AC before meals Three times daily before meals. 07/24/19 25 025 Inactive ammonium lactate 12 % topical cream RxNorm: 585022 Apply 1 Application Topical BID 07/20/19 No Stop Date Active ezetimibe 10 mg tablet RxNorm: 916481 Take 1 Tablet(s) Oral QD 07/18/19 No Stop Date Active senna 8.6 mg tablet RxNorm: 655777 Take 1 Tablet(s) Oral QD 07/18/19 25 025 Inactive metoprolol succinate ER 200 mg tablet,extended release 24 hr RxNorm: 763462 Take 1 Tablet(s) Oral QD 06/19/19 25 No Stop Date Active pantoprazole 40 mg tablet,delayed release RxNorm: 215592 Take 1 Tablet(s) Oral QAM every morning 06/19/19 25 No Stop Date Active hydralazine 50 mg tablet RxNorm: 005361 Take 1 Tablet(s) Oral QID 06/19/19 25 No Stop Date Active carbamazepine 200 mg tablet RxNorm: 129158 Take 1 Tablet(s) Oral BID 06/19/19 25 No Stop Date Active amlodipine 10 mg tablet RxNorm: 783041 Take 1 Tablet(s) Oral QD 06/19/19 25 No Stop Date Active Eliquis 5 mg tablet RxNorm: 6012626 Take 1 Tablet(s) Oral BID 06/19/19 25 No Stop Date Active pen needle, diabetic 30 gauge x 3/16 RxNorm: Use 1 6 times per day w/insulin 06/14/19 25 026 Active pen needle, diabetic 30 gauge x 3/16 RxNorm: Use 1 needle 6 times per day w/insulin 06/14/19 25 025 Inactive nystatin 100,000 unit/gram topical powder RxNorm: 549918 Apply 1 Application Topical BID as needed abdominal/breast /groin folds 05/24/19 25 026 Active pregabalin 100 mg capsule RxNorm: 474023 Take 1 Capsule(s) Oral QAM every morning 05/22/19 25 025 Inactive nystatin 100,000 unit/gram topical powder RxNorm: 763343 Apply 1 Application Topical BID as needed abdominal/breast /groin folds 04/11/20 24 024 Inactive chlorthalidone 25 mg tablet RxNorm: 170153 Take 1 Tablet(s) Oral QAM every morning 04/06/20 24 No Stop Date Active pregabalin 150 mg capsule RxNorm: 434547 Take 1 Capsule(s) Oral QHS every night at bedtime 03/31/20 24 024 Inactive Vascepa 1 gram capsule RxNorm: 3637300 Take 2 Capsule(s) Oral BID 03/30/20 24 025 Active rosuvastatin 40 mg tablet RxNorm: 307373 1 TAB ORALLY EVERY EVENING (DX:CORONARY ARTERY DISEASE) 03/28/20 No Stop Date Active venlafaxine ER 75 mg capsule,extended release 24 hr RxNorm: 160867 3 CAPS (225MG) ORALLY DAILY (DX: MOOD DISORDER) 03/28/20 No Stop Date Active pregabalin 100 mg capsule RxNorm: 412050 Take 1 Capsule(s) Oral QAM every morning 03/20/20 Inactive cholecalciferol (vitamin D3) 1,250 mcg (50,000 unit) capsule RxNorm: 742271 Take 1 Capsule(s) Oral QW once a [...] Insulin 100 unit/mL (3 mL) subcutaneous RxNorm: 4480301 Inject 40 Unit(s) Subcutaneous BID 03/07/20 025 Inactive Please dispense one month supply. Humulin R U-500 (Concentrated) Insulin 500 unit/mL subcutaneous soln RxNorm: 374171 Inject 100 Unit(s) Subcutaneous AC before meals [...] PRN) to be use with new Accu [place] meter 03/04/20 Inactive ok to substitute with any covered alternative test strip FreeStyle Chema 2 Sensor kit RxNorm: Use UD as directed 03/02/20 Inactive Pen Needle 30 gauge x 516 RxNorm: Pen(s) Use 1 needle as directed TID 03/02/20 Inactive nystatin 100,000 unit/gram topical powder RxNorm: 202583 Apply 1 Application Topical BID as needed abdominal/breast /groin folds 03/02/20 Inactive FreeStyle Chema 2 Sensor kit RxNorm: Use UD as directed 03/02/20 025 Inactive Accu-Chek Guide test strips RxNorm: Use 1 Test Strip QID 03/02/20 Inactive ok to substitute with any covered alternative test strip Lancets,Thin 28 gauge RxNorm: Use 1 as directed QID lancet 03/02/20 24 Inactive Pen Needle 30 gauge x 16 RxNorm: Pen(s) Use 1 needle as directed TID 03/02/20 Inactive Humulin R U-500 (Concentrated) Insulin 500 unit/mL subcutaneous soln RxNorm: 991264 Inject 100 Unit(s) Subcutaneous TID 02/17/20 24 024 Inactive Humulin R U-500 (Concentrated) Insulin 500 unit/mL subcutaneous soln RxNorm: 241346 Inject 100 Unit(s) Subcutaneous TID 02/10/20 24 024 Inactive Basaglar KwikPen U-100 Insulin 100 unit/mL (3 mL) subcutaneous RxNorm: 2749218 Inject 30 Unit(s) Subcutaneous BID 02/10/20 24 024 Inactive Please dispense one month supply. pregabalin 100 mg capsule RxNorm: 311926 Take 1 Capsule(s) Oral QAM every morning 02/07/20 24 024 Inactive isosorbide mononitrate ER 60 mg tablet,extended release 24 hr RxNorm: 977304 Take 1 Tablet(s) Oral QD 02/01/20 24 025 Active aripiprazole 15 mg tablet RxNorm: 948222 Take 1/2 Tablet(s) Oral QD 02/01/20 24 025 Active torsemide 20 mg tablet RxNorm: 729157 1 TAB ORALLY DAILY (DX: EDEMA) 01/27/20 No Stop Date Active potassium chloride ER 20 mEq tablet,extended release(part/cryst) RxNorm: 8841704 2 TABS (40MEQ) ORALLY TWICE DAILY (DX: HYPOKALEMIA) 01/27/20 24 025 Inactive cephalexin 500 mg capsule RxNorm: 431484 Take 1 Capsule(s) Oral QID 12/17/19 24 024 Inactive cephalexin 500 mg capsule RxNorm: 127200 Take 1 Capsule(s) Oral QID 12/17/19 24 024 Inactive acetaminophen 500 mg tablet RxNorm: 759659 (MAX APAP:4GM/24HR) Take 1 Tablet(s) Oral TID as needed for pain 12/10/19 24 024 Inactive torsemide 20 mg tablet RxNorm: 268272 Take 1 Tablet(s) Oral QD 10/26/19 24 024 Inactive potassium chloride ER 20 mEq tablet,extended release RxNorm: 144004 Take 2 Tablet(s) Oral BID 10/26/19 24 024 Inactive torsemide 20 mg tablet RxNorm: 690107 Take 1 Tablet(s) Oral QD 10/26/19 24 Inactive potassium chloride ER 20 mEq tablet,extended release RxNorm: 429214 Take 2 Tablet(s) Oral BID 10/26/19 24 025 Inactive Artificial Tears (PF) 0.1 %-0.3 % drops in a dropperette RxNorm: 182691 Apply 1-2 Drop(s) Both eyes BID as needed 09/28/19 24 Inactive erythromycin 5 mg/gram (0.5 %) eye ointment RxNorm: 589612 Apply 1 Application Both eyes QHS every night at bedtime Instill ~1 cm ribbon into affected eye 09/28/19 Inactive Artificial Tears (PF) 0.1 %-0.3 % drops in a dropperette RxNorm: 110147 Apply 1-2 Drop(s) Both eyes BID as needed 09/28/19 24 Inactive erythromycin 5 mg/gram (0.5 %) eye ointment RxNorm: 323346 Apply 1 Application Both eyes QHS every night at bedtime Instill ~1 cm ribbon into affected eye 09/28/19 24 Inactive acetaminophen 500 mg tablet RxNorm: 556872 (MAX APAP:4GM/24HR) Take 1 Tablet(s) Oral TID as needed for pain 09/24/19 24 Inactive carvedilol 25 mg tablet RxNorm: 745641 Take 1 Tablet(s) Oral QD 09/08/19 24 No Stop Date Active pregabalin 100 mg capsule RxNorm: 059653 Take 1 Capsule(s) Oral QAM every morning 09/07/19 24 024 Inactive bisacodyl 10 mg rectal suppository RxNorm: 223749 Insert 1 Suppository Rectal QD as needed 07/13/19 24 No Stop Date Active ketoconazole 2 % shampoo RxNorm: 780782 Apply 1 Application Topical UD as directed 07/13/19 24 No Stop Date Active Ozempic 1 mg/dose (4 mg/3 mL) subcutaneous pen injector RxNorm: 8226543 Inject 1 Milligram(s) Subcutaneous QW once a week 07/13/19 24 No Stop Date Active Guaifenesin AC 10 mg-100 mg/5 mL oral liquid RxNorm: 134090 Take 10 Milliliter(s) Oral Q4H every four hours as needed 07/13/19 24 No Stop Date Active hydrocortisone 2.5 % topical cream RxNorm: 807650 Apply 1 Application Topical BID as needed 07/13/19 24 No Stop Date Active rosuvastatin 20 mg sprinkle capsule RxNorm: 9035309 Take 1 Capsule(s) Oral QD 07/13/19 24 025 Inactive rosuvastatin 40 mg tablet RxNorm: 589976 Take 1 Tablet(s) Oral QPM every evening 07/13/19 24 024 Inactive ezetimibe 10 mg tablet RxNorm: 693767 Take 1 Tablet(s) Oral QD 07/13/19 24 025 Inactive polyethylene glycol 3350 17 gram/dose oral powder RxNorm: 352845 Take 17 Gram(s) Oral BID as needed mix in 4-8ox water 07/13/19 24 025 Inactive aripiprazole 15 mg tablet RxNorm: 015216 Take 1/2 Tablet(s) Oral QD 07/13/19 24 024 Inactive isosorbide mononitrate ER 60 mg tablet,extended release 24 hr RxNorm: 036669 Take 1 Tablet(s) Oral QD 07/13/19 24 024 Inactive ammonium lactate 12 % topical cream RxNorm: 727240 Apply 1 Application Topical BID 07/13/19 24 025 Inactive Vascepa 1 gram capsule RxNorm: 2202521 Take 2 Capsule(s) Oral BID 07/13/19 24 024 Inactive venlafaxine ER 75 mg capsule,extended release 24 hr RxNorm: 425569 Take 3 Capsule(s) Oral QD 07/13/19 24 024 Inactive Basaglar KwikPen U-100 Insulin 100 unit/mL (3 mL) subcutaneous RxNorm: 9704942 Inject 30U SubQ twice daily 07/07/19 24 024 Inactive Please dispense one month supply. Basaglar KwikPen U-100 Insulin 100 unit/mL (3 mL) subcutaneous RxNorm: 5783935 Inject 30U SubQ twice daily 07/07/19 24 024 Inactive Please dispense one month supply. pregabalin 150 mg capsule RxNorm: 392632 Take 1 Capsule(s) Oral QHS every night at bedtime 07/05/19 24 024 Inactive pregabalin 150 mg capsule RxNorm: 087328 Take 1 Capsule(s) Oral QHS every night at bedtime 07/05/19 24 024 Inactive polyethylene glycol 3350 17 gram/dose oral powder RxNorm: 389490 Take 1 Packet Oral QD as needed (1 packet = 17g) mix with 4-8oz of liquid 06/15/19 Inactive bisacodyl 10 mg rectal suppository RxNorm: 140079 Insert one suppository per rectum once daily as needed for constipation 06/15/19 024 Inactive bisacodyl 10 mg rectal suppository RxNorm: 825876 Insert one suppository per rectum once daily as needed for constipation 06/15/19 024 Inactive pregabalin 100 mg capsule RxNorm: 209296 Take 1 Capsule(s) Oral QAM every morning 04/27/20 024 Inactive Levemir FlexPen 100 unit/mL (3 mL) solution subcutaneous insulin pen RxNorm: 432751 Inject 30 Unit(s) Subcutaneous BID 04/27/20 024 Inactive rosuvastatin 40 mg tablet RxNorm: 828023 Take 1 Tablet(s) Oral QPM every evening 04/16/20 024 Inactive D/C rosuvastatin 20mg venlafaxine ER 75 mg capsule,extended release 24 hr RxNorm: 606630 Take 3 Capsule(s) Oral QD 04/14/20 023 Inactive pregabalin 100 mg capsule RxNorm: 783371 Take 1 Capsule(s) Oral QAM every morning [...] strip clotrimazole 1 % topical cream RxNorm: 871563 Take apply topically to abdominal folds twice daily for 14 days 03/12/20 024 Inactive Ozempic 1 mg/dose (4 mg/3 mL) subcutaneous pen injector RxNorm: 0350334 Inject 1 Milligram(s) Subcutaneous QW once a week 03/11/20 23 023 Inactive rosuvastatin 20 mg tablet RxNorm: 545957 Take 1 Tablet(s) Oral QD 02/26/20 23 023 Inactive d/c pravastatin 80mg Ozempic 1 mg/dose (4 mg/3 mL) subcutaneous pen injector RxNorm: 7868478 Inject 1 Milligram(s) Subcutaneous QW once a week 02/20/20 23 023 Inactive pregabalin 150 mg capsule RxNorm: 178756 Take 1 Capsule(s) Oral HS at bed time 02/19/20 23 023 Inactive pregabalin 100 mg capsule RxNorm: 037817 Take 1 Capsule(s) Oral QAM every morning 02/18/20 23 023 Inactive venlafaxine ER 75 mg capsule,extended release 24 hr RxNorm: 380084 Take 3 Capsule(s) Oral QD 02/04/20 23 023 Inactive FreeStyle Chema 2 Sensor kit RxNorm: use as directed 02/04/20 23 023 Inactive FreeStyle Chema 2 Sensor kit RxNorm: use as directed 02/04/20 23 024 Inactive fluconazole 150 mg tablet RxNorm: 506854 Take 1 Tablet(s) Oral on day 3 and on day 6 02/03/20 23 024 Inactive venlafaxine ER 150 mg capsule,extended release 24 hr RxNorm: 160200 Take 1 Capsule(s) Oral QD 02/03/20 23 023 Inactive chlorthalidone 25 mg tablet RxNorm: 905601 Take 1 Tablet(s) Oral QAM every morning 02/03/20 23 024 Inactive acetaminophen 500 mg tablet RxNorm: 787857 1 TABLET ORALLY 3 TIMES DAILY (MAX APAP:4GM/24HR) 12/15/19 23 023 Inactive clotrimazole 1 % topical cream RxNorm: 839523 apply 1g topically to top of feet and in between toes BID 12/09/19 23 025 Inactive potassium chloride ER 20 mEq tablet,extended release RxNorm: 900212 Take 1 Tablet(s) Oral BID 12/09/19 024 Inactive d/c 20mEq once daily (sent from hospital) nystatin 100,000 unit/gram topical powder RxNorm: 432282 APPLY TO AFFECTED AREAS TOPICALLY 2 TIMES DAILY 11/21/19 23 023 Inactive Nystop 100,000 unit/gram topical powder RxNorm: 640166 Apply to abd folds, under breasts and L side of groin Topical BID x 14 days, then BID PRN 11/20/19 023 Inactive dx: yeast dermatitis [place] Ultra Strength 4 %-30 %-10 % topical cream RxNorm: 653088 Apply 1 Gram(s) Topical QID PRN to feet and legs for neuropathic pain 11/11/19 024 Inactive clotrimazole 1 % topical cream RxNorm: 737969 Apply 1/2 Gram(s) Topical BID Apply to affected areas of groin, periarea, and abdominal topically 2 times daily 11/10/19 023 Inactive hydrocortisone 2.5 % topical cream RxNorm: 195504 Apply 1/2 Gram(s) Topical BID as needed 11/10/19 024 Inactive Levemir FlexPen 100 unit/mL (3 mL) solution subcutaneous insulin pen RxNorm: 136895 Inject 30 Unit(s) Subcutaneous BID 10/07/19 023 Inactive Humulin R U-500 (Concentrated) Insulin 500 unit/mL subcutaneous soln RxNorm: 698001 Inject 100 Unit(s) Subcutaneous TID 10/07/19 024 Inactive Ozempic 0.25 mg or 0.5 mg (2 mg/3 mL) subcutaneous pen injector RxNorm: 8537167 Inject 1/2 Milligram(s) Subcutaneous QW once a week 10/07/19 024 Inactive aripiprazole 15 mg tablet RxNorm: 279524 1/2 TAB (7.5MG) ORALLY DAILY (DX:MAJOR DEPRESSIVE DISORDER) 09/23/19 023 Inactive Accu-Chek Guide test strips RxNorm: Use 1 Test Strip QID 09/15/19 23 023 Inactive ok to substitute with any covered alternative test strip Lancets,Thin 28 gauge RxNorm: Use 1 as directed QID 09/15/19 23 023 Inactive torsemide 20 mg tablet RxNorm: 763047 Take 1 Tablet(s) Oral BID 09/09/19 23 024 Inactive d/c once daily dosing carvedilol 25 mg tablet RxNorm: 309293 Take 1 Tablet(s) Oral QD 08/25/19 23 024 Inactive pregabalin 150 mg capsule RxNorm: 300105 1 Capsule(s) Oral HS at bed time 08/18/19 23 023 Inactive pregabalin 100 mg capsule RxNorm: 636145 1 Capsule(s) Oral QAM every morning 08/18/19 23 023 Inactive carvedilol 25 mg tablet RxNorm: 607510 1 Tablet(s) Oral QD 07/28/19 23 023 Inactive lisinopril 20 mg tablet RxNorm: 259599 Give 1 Tablet(s) Oral QD 07/28/19 23 023 Inactive Lyrica 150 mg capsule RxNorm: 706904 Take 1 Capsule(s) Oral QHS every night at bedtime 07/19/19 23 023 Inactive d/c 100mg dose Diflucan 150 mg tablet RxNorm: 777676 Take 1 Tablet(s) Oral QD repeat on day 3 and 6 07/19/19 23 023 Inactive pregabalin 100 mg capsule RxNorm: 918320 Take 1 Capsule(s) Oral QAM every morning 07/19/19 23 023 Inactive gatifloxacin 0.5 % eye drops RxNorm: 734660 Instill 1 Drop(s) as directed TID Instill 1 drop in to affected eye(s) starting 1 day prior to surgery and continue until gone (do not exceed 4 weeks). 07/13/19 23 023 Inactive carvedilol 25 mg tablet RxNorm: 088357 2 Tablet(s) Oral BID 07/13/19 23 023 Inactive Humulin R Regular U-100 Insulin 100 unit/mL injection solution RxNorm: 090676 85 Unit(s) Injection TID 07/13/19 23 023 Inactive ketorolac 0.5 % eye drops RxNorm: 050095 Instill 1 Drop(s) as directed QID Instill 1 drop into affected eye(s) 4 times daily starting 1 day prior to surgery and continue until gone (do not exceed 4 weeks). 07/13/19 23 023 Inactive Diflucan 150 mg tablet RxNorm: 658638 Take 1 Tablet(s) Oral QD repeat on day 3 and 6 06/30/19 23 023 Inactive Accu-Chek Guide test strips RxNorm: Use 1 Test Strip QID Use 1 test strip to monitor blood glucose 4 times daily and as needed. Dx:E11.42. 06/23/19 23 023 Inactive ok to substitute with any covered alternative test strip dextromethorphan-gu aifenesin 10 mg-100 mg/5 mL oral liquid RxNorm: 613221 Take 10 Milliliter(s) Oral every 4 hours as needed for cough 06/19/19 23 023 Inactive dextromethorphan-gu aifenesin 10 mg-100 mg/5 mL oral liquid RxNorm: 188233 Take 10 Milliliter(s) Oral every 4 hours as needed for cough 06/19/19 23 023 Inactive Lyrica 150 mg capsule RxNorm: 884388 Take 1 Capsule(s) Oral QHS every night at bedtime 06/18/19 23 023 Inactive d/c 100mg dose aripiprazole 15 mg tablet RxNorm: 097628 /2 TAB (7.5MG) ORALLY DAILY (DX:MAJOR DEPRESSIVE DISORDER) 06/05/19 23 023 Inactive pregabalin 100 mg capsule RxNorm: 750617 1 Capsule(s) Oral QAM every morning 06/02/19 23 023 Inactive Banophen 50 mg capsule RxNorm: 3433877 Take 1 Capsule(s) Oral Q6H every 6 hours as needed 05/19/19 23 No Stop Date Active Novolog Flexpen U-100 Insulin aspart 100 unit/mL (3 mL) subcutaneous RxNorm: 3219743 Inject 10 Unit(s) Subcutaneous QHS every night at bedtime with nighttime snack 04/08/20 Inactive Novolog Flexpen U-100 Insulin aspart 100 unit/mL (3 mL) subcutaneous RxNorm: 3288195 Inject 42 Unit(s) Subcutaneous TID in addition to sliding scale 04/08/20 022 Inactive d/c 36u albuterol sulfate HFA 90 mcg/actuation aerosol inhaler RxNorm: 2283143 Take 2 Puff(s) Inhalation Q4H every four hours as needed as needed for SOB, cough, or wheezing 04/07/20 030 Active Banophen 50 mg capsule RxNorm: 5858862 Take 1 Capsule(s) Oral Q6H every 6 hours as needed 04/06/20 023 Inactive diphenhydramine 50 mg tablet RxNorm: 0457655 Take 1 Tablet(s) Oral Q6H every 6 hours as needed 04/06/20 022 Inactive diphenhydramine 50 mg tablet RxNorm: 6362539 1 Tablet(s) Oral Q6H every 6 hours as needed 04/06/20 022 Inactive Abilify 15 mg tablet RxNorm: 556012 1/2 Tablet(s) Oral QD 03/10/20 023 Inactive Shingrix (PF) 50 mcg/0.5 mL intramuscular suspension, kit RxNorm: 6735894 Administer 1/2 Milliliter(s) Intramuscular QD one time shingrix step 2 ( step 1 given 11/04/21) WITH needle - Nursing please administer upon arrival and once administered post a bridge message with date of administration, mechanical product engineer, expiration date, and lot# so we can update [facility] 02/18/20 22 022 Inactive dispense with needle Shingrix (PF) 50 mcg/0.5 mL intramuscular suspension, kit RxNorm: 4589037 Administer 1/2 Milliliter(s) Intramuscular QD one time shingrix step 2 ( step 1 given 11/04/21) WITH needle - Nursing please administer upon arrival and once administered post a bridge message with date of administration, mechanical product engineer, expiration date, and lot# so we can update [facility] 02/18/2007 03/03/2 022 Inactive dispense with needle Lyrica 100 mg capsule RxNorm: 918106 Take 1 Capsule(s) Oral QAM every morning 01/08/20 22 022 Inactive d/c 50mg dose acetaminophen 500 mg tablet RxNorm: 426662 Take 1 Tablet(s) Oral TID 01/08/20 22 022 Inactive d/c PRN order Lyrica 150 mg capsule RxNorm: 464043 Take 1 Capsule(s) Oral QHS every night at bedtime 01/08/20 22 023 Inactive d/c 100mg dose polyethylene glycol 3350 17 gram/dose oral powder RxNorm: 335203 Take 17=1 capful Gram(s) Oral QD mix with 4-8oz of liquid 01/08/20 22 025 Inactive take this in addition to BID prn order Abilify 5 mg tablet RxNorm: 343635 Take 1 Tablet(s) Oral QD take 1 tab po QD #30 refill 5 dx: MDD 12/12/19 22 022 Inactive Abilify 5 mg tablet RxNorm: 661166 Take 1 Tablet(s) Oral QD take 1 tab po QD #30 refill 5 dx: MDD 12/12/19 22 022 Inactive Novolog Flexpen U-100 Insulin aspart 100 unit/mL (3 mL) subcutaneous RxNorm: 7330620 Inject 42 Unit(s) Subcutaneous TID in addition to sliding scale 12/10/19 22 022 Inactive d/c 36u chlorthalidone 25 mg tablet RxNorm: 202381 Take 1 Tablet(s) Oral QAM every morning 12/10/19 22 023 Inactive pregabalin 50 mg capsule RxNorm: 790752 Take 1 Capsule(s) Oral QAM every morning 11/12/19 22 022 Inactive tetanus-diphtheria toxoids-Td 2 Lf unit-2 Lf unit/0.5 mL IM suspension RxNorm: 139 Take 0.5 Miscellaneous Intramuscular 11/12/19 22 022 Inactive need tdap - nursing to administer upon arrival pregabalin 50 mg capsule RxNorm: 065234 Take 1 Capsule(s) Oral QAM every morning 10/16/19 22 022 Inactive pregabalin 50 mg capsule RxNorm: 922980 Take 1 Capsule(s) Oral QAM every morning 10/16/19 22 022 Inactive pregabalin 50 mg capsule RxNorm: 396802 1 Capsule(s) Oral QAM every morning 10/15/19 22 022 Inactive Shingrix (PF) 50 mcg/0.5 mL intramuscular suspension, kit RxNorm: 8362218 Administer 1/2 Milliliter(s) Intramuscular one time Nursing please administer upon arrival and once administered post a bridge message with 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, expiration date, and lot# so we [...] aspart 100 unit/mL (3 mL) subcutaneous RxNorm: 1964737 Inject 10 Unit(s) Subcutaneous QHS every night at bedtime with nighttime snack 10/08/19 22 022 Inactive Shingrix (PF) 50 mcg/0.5 mL intramuscular suspension, kit RxNorm: 4848686 ADMINISTER 2-DOSE SERIES PER CDC GUIDELINES 10/08/19 22 022 Active Shingrix (PF) 50 mcg/0.5 mL intramuscular suspension, kit RxNorm: 9975349 ADMINISTER 2-DOSE SERIES PER CDC GUIDELINES 10/08/19 22 022 Inactive Novolog Flexpen U-100 Insulin aspart 100 unit/mL (3 mL) subcutaneous RxNorm: 8650831 Inject 36 Unit(s) Subcutaneous TID in addition to sliding scale 10/08/19 22 022 Inactive cholecalciferol (vitamin D3) 1,250 mcg (50,000 unit) capsule RxNorm: 860511 Take 1 Capsule(s) Oral QW once a week 10/08/19 024 Inactive Novofine Autocover 30 gauge x 1/3 needle RxNorm: Use 1 Miscellaneous UD as directed Use 1 needle as directed to administer insulin 5 times a day Dx:E11.42. 10/03/19 22 022 Inactive ok to substitute with any covered alternative pen needle benzoyl peroxide 10 % topical cleanser RxNorm: 357317 Apply 1 Application Topical QD apply to face, wash rinse and dry once daily (may change to QOD if drying) 08/19/19 22 022 Inactive (%covered by insurance) #60ml refill 11 dx: acne benzoyl peroxide 10 % topical cleanser RxNorm: 346542 Apply 1 Application Topical QD apply to face, wash rinse and dry once daily (may change to QOD if drying) 08/19/19 22 022 Inactive (%covered by insurance) #60ml refill 11 dx: acne benzoyl peroxide 10 % topical cleanser RxNorm: 790017 Apply 1 Application Topical QD apply to face, wash rinse and dry once daily (may change to QOD if drying) 08/19/19 22 022 Inactive (%covered by insurance) #60ml refill 11 dx: acne Lyrica 50 mg capsule RxNorm: 150455 Take 1 Capsule(s) Oral QAM every morning Take 1 capsule by mouth once daily 08/19/19 22 022 Inactive benzoyl peroxide 10 % topical cleanser RxNorm: 051386 Apply 1 Application Topical QD apply to face, wash rinse and dry once daily (may change to QOD if drying) 08/19/19 22 022 Inactive (%covered by insurance) #60ml refill 11 dx: acne Lyrica 100 mg capsule RxNorm: 032385 Take 1 Capsule(s) Oral QHS every night at bedtime Take 1 capsule by mouth once daily at bedtime 08/19/19 22 022 Inactive Lyrica 100 mg capsule RxNorm: 994620 Take 1 Capsule(s) Oral QHS every night at bedtime Take 1 capsule by mouth once daily at bedtime 08/16/19 22 022 Inactive Lyrica 50 mg capsule RxNorm: 730501 Take 1 Capsule(s) Oral QAM every morning Take 1 capsule by mouth once daily 08/16/19 22 Inactive Levemir FlexTouch U-100 Insulin 100 unit/mL (3 mL) subcutaneous pen RxNorm: 021454 Inject 86 Unit(s) Subcutaneous BID 08/05/19 22 022 Inactive d/c 83units BID Lyrica 100 mg capsule RxNorm: 235185 Take 1 Capsule(s) Oral QHS every night at bedtime Take 1 capsule by mouth once daily at bedtime 07/14/19 22 022 Inactive Lyrica 50 mg capsule RxNorm: 922739 Take 1 Capsule(s) Oral QAM every morning Take 1 capsule by mouth once daily 07/14/19 22 022 Inactive Levemir FlexTouch U-100 Insulin 100 unit/mL (3 mL) subcutaneous pen RxNorm: 580880 Inject 83 Unit(s) Subcutaneous BID 07/08/19 22 [...] test strip hydralazine 50 mg tablet RxNorm: 074349 Take 1 Tablet(s) Oral QID 05/05/20 21 022 Inactive venlafaxine ER 225 mg tablet,extended release 24 hr RxNorm: 534498 Take 1 Tablet(s) Oral QD 05/05/20 21 021 Inactive venlafaxine ER 225 mg tablet,extended release 24 hr RxNorm: 066148 Take 1 Tablet(s) Oral QD 05/05/20 21 022 Inactive isosorbide mononitrate ER 30 mg tablet,extended release 24 hr RxNorm: 495645 Take 1 Tablet(s) Oral QD 05/05/20 21 024 Inactive hydralazine 50 mg tablet RxNorm: 246892 Take 1 Tablet(s) Oral QID 05/05/20 21 021 Inactive aspirin 81 mg tablet,delayed release RxNorm: 172434 Take 1 Tablet(s) Oral QD 03/31/20 21 022 Inactive Vitamin D2 1,250 mcg (50,000 unit) capsule RxNorm: 7976695 Take 1 Capsule(s) Oral QW once a week x 12 weeks 03/31/20 022 Inactive Vitamin D2 1,250 mcg (50,000 unit) capsule RxNorm: 7028731 Take 1 Capsule(s) Oral QW once a week 03/31/20 021 Inactive Zetia 10 mg tablet RxNorm: 356844 Take 1 Tablet(s) Oral QD 03/31/20 024 Inactive Zetia 10 mg tablet RxNorm: 073080 Take 1 Tablet(s) Oral QD 03/31/20 021 Inactive hydralazine 25 mg tablet RxNorm: 335608 Take 1 Tablet(s) Oral QID 03/31/20 021 Inactive hydralazine 25 mg tablet RxNorm: 426176 Take 1 Tablet(s) Oral QID 03/31/20 021 Inactive hydralazine 10 mg tablet RxNorm: 528163 Take 1 Tablet(s) Oral QID 03/03/20 021 Inactive cephalexin 500 mg tablet RxNorm: 804268 Take 1 Tablet(s) Oral QID 02/27/20 021 Inactive cephalexin 500 mg tablet RxNorm: 667118 Take 1 Tablet(s) Oral QID 02/27/20 021 Inactive lisinopril 40 mg tablet RxNorm: 550218 Take 1 Tablet(s) Oral QD 02/11/20 21 023 Inactive Eliquis 5 mg tablet RxNorm: 7769035 Take 1 Tablet(s) Oral BID 01/05/20 21 025 Inactive Eliquis 5 mg tablet RxNorm: 3606712 Take 2 Tablet(s) Oral QD 01/01/20 21 021 Inactive Lyrica 50 mg capsule RxNorm: 184817 Take 1 Capsule(s) Oral QAM every morning 12/24/19 21 021 Inactive Lyrica 100 mg capsule RxNorm: 511349 Take 1 Capsule(s) Oral QHS every night at bedtime 12/24/19 21 021 Inactive clotrimazole 1 % topical cream RxNorm: 229064 Apply to right foot and toes Topical BID 12/04/19 21 023 Inactive metoprolol succinate ER 200 mg tablet,extended release 24 hr RxNorm: 395954 Take 1 Tablet(s) Oral QD 12/04/19 21 023 Inactive ciprofloxacin 500 mg tablet RxNorm: 712660 Take 1 Tablet(s) Oral QD 11/30/19 21 021 Inactive DX ofloxacin otic drops Accu-Chek Guide test strips RxNorm: USE 1 TO CHECK GLUCOSE 4 TIMES DAILY AND NEEDED 11/15/19 21 023 Inactive Blood Glucose Test strips RxNorm: Use 1 Test Strip QID at PRN 11/05/19 21 023 Inactive E11.42 lisinopril 30 mg tablet RxNorm: 198275 Take 1 Tablet(s) Oral QD 10/30/19 21 021 Inactive lisinopril 20 mg tablet RxNorm: 922108 Take 1 Tablet(s) Oral QD 10/23/19 21 021 Inactive lisinopril 20 mg tablet RxNorm: 956616 Take 1 Tablet(s) Oral QD 10/23/19 21 021 Inactive lisinopril 10 mg tablet RxNorm: 702705 Take 1 Tablet(s) Oral QD 10/02/19 21 021 Inactive icosapent ethyl 1 gram capsule RxNorm: 7074632 Take 2 Capsule(s) (2 gm) Oral BID with meals 09/12/19 21 024 Inactive Okay to dispense one 2gm tab if you have that available. icosapent ethyl 1 gram capsule RxNorm: 7026930 Take 2 Capsule(s) Oral BID 09/12/19 21 021 Inactive Okay to dispense one 2gm tab if you have that available. amlodipine 10 mg tablet RxNorm: 239937 Take 1 Tablet(s) Oral QD 09/04/19 21 021 Inactive aspirin 81 mg tablet,delayed release RxNorm: 843643 Take 1 Tablet(s) Oral QD 09/04/19 21 021 Inactive Levemir FlexTouch U-100 Insulin 100 unit/mL (3 mL) subcutaneous pen RxNorm: 126415 Inject 150 Unit(s) Subcutaneous BID 09/04/19 21 022 Inactive venlafaxine ER 150 mg tablet,extended release 24 hr RxNorm: 133714 Take 1 Tablet(s) Oral QD 09/04/19 021 Inactive clotrimazole-betame thasone 1 %-0.05 % topical cream RxNorm: 550287 Apply to rash on red area on left abdomen/chest Topical BID 08/10/19 21 Inactive amlodipine 5 mg tablet RxNorm: 961876 Take 1 Tablet(s) Oral QD 07/31/19 021 Inactive cephalexin 500 mg tablet RxNorm: 908345 Take 1 Tablet(s) Oral BID BID - Twice Daily 07/31/19 021 Inactive Start 08/01/20 pantoprazole 40 mg tablet,delayed release RxNorm: 706321 Take 1 Tablet(s) Oral QAM every morning 07/08/19 025 Inactive clopidogrel 75 mg tablet RxNorm: 513289 Take 1 Tablet(s) Oral QD 07/08/19 021 Inactive Blood Glucose Test strips RxNorm: Use 1 Test Strip QID at PRN 07/08/19 Inactive E11.42 senna 8.6 mg tablet RxNorm: 456779 Take 1 Tablet(s) Oral QD 07/08/19 025 Inactive Novolog Flexpen U-100 Insulin aspart 100 unit/mL (3 mL) subcutaneous RxNorm: 3259602 Administer per sliding scale Milliliter(s) Subcutaneous TID 151-200: 10 u; 201-250: 20 u; 251-300: 30 u; 301-350: 40 u; 351-400: 50 u. 07/08/19 022 Inactive lisinopril 5 mg tablet RxNorm: 223175 Take 1 Tablet(s) Oral QD 07/08/19 021 Inactive Novolog Flexpen U-100 Insulin aspart 100 unit/mL (3 mL) subcutaneous RxNorm: 8254217 Inject 85 Unit(s) Subcutaneous TID 07/08/19 21 022 Inactive pravastatin 80 mg tablet RxNorm: 044106 Take 1 Tablet(s) Oral QHS every night at bedtime 07/08/19 023 Inactive clotrimazole 1 % topical cream RxNorm: 989245 Apply to bilateral groin areas Topical BID 07/08/19 21 022 Inactive metoprolol succinate ER 200 mg tablet,extended release 24 hr RxNorm: 795608 Take 1 Tablet(s) Oral QD 07/08/19 021 Inactive Vitamin D3 25 mcg (1,000 unit) tablet RxNorm: 943338 Take 1 Tablet(s) Oral QD 07/08/19 21 021 Inactive isosorbide dinitrate 30 mg tablet RxNorm: 412540 Take 1 Tablet(s) Oral QD 07/08/19 21 021 Inactive carbamazepine 200 mg tablet RxNorm: 208633 Take 1 Tablet(s) Oral BID 07/08/19 21 025 Inactive Levemir FlexTouch U-100 Insulin 100 unit/mL (3 mL) subcutaneous pen RxNorm: 962404 Inject 140 Unit(s) Subcutaneous BID 07/08/19 021 Inactive torsemide 20 mg tablet RxNorm: 344816 Take 1 Tablet(s) Oral QD 07/08/19 023 Inactive venlafaxine 75 mg tablet RxNorm: 332330 Take 1 Tablet(s) Oral QD 07/08/19 021 Inactive acetaminophen 500 mg tablet RxNorm: 877837 Take 1 Tablet(s) Oral TID as needed for headache 06/18/19 021 Inactive acetaminophen 500 mg tablet RxNorm: 575431 Take 1 Tablet(s) Oral TID as needed for headache 06/18/19 21 021 Inactive Lyrica 100 mg capsule RxNorm: 240297 Take 1 Capsule(s) Oral QHS every night at bedtime 06/11/19 21 021 Inactive Lyrica 50 mg capsule RxNorm: 424891 Take 1 Capsule(s) Oral QAM every morning 06/10/19 21 021 Inactive hydrocortisone 2.5 % topical cream RxNorm: 324263 Apply to bilateral groin creases Topical BID 05/15/20 20 021 Inactive clotrimazole 1 % topical cream RxNorm: 071226 Apply to bilateral groin areas Topical BID 05/15/20 20 021 Inactive Lyrica 50 mg capsule RxNorm: 929939 Take 1 Capsule(s) Oral QAM every morning 05/14/20 20 020 Inactive Lyrica 100 mg capsule RxNorm: 321662 Take 1 Capsule(s) Oral QHS every night [...] Inactive Nystop 100,000 unit/gram topical powder RxNorm: 456062 Apply to abd folds, under breasts and L side of groin Topical BID x 14 days, then BID PRN 04/08/20 20 020 Inactive dx: yeast dermatitis Lyrica 100 mg capsule RxNorm: 643406 Take 1 Capsule(s) Oral QHS every night at bedtime 03/13/20 20 Inactive Lyrica 50 mg capsule RxNorm: 073484 Take 1 Capsule(s) Oral QAM every morning 03/13/20 20 020 Inactive ketoconazole 2 % shampoo RxNorm: 336904 Apply Topical two times a week with showers 03/11/20 20 024 Inactive cholecalciferol (vitamin D3) 50 mcg (2,000 unit) tablet RxNorm: 610558 Take 1 Tablet(s) Oral QD 03/11/20 20 021 Inactive Zetia 10 mg tablet RxNorm: 377775 Take 1 Tablet(s) Oral QD 03/07/20 20 021 Inactive Zetia 10 mg tablet RxNorm: 824774 Take 1 Tablet(s) Oral QD 03/07/20 20 Inactive Lyrica 50 mg capsule RxNorm: 199074 Take 1 Capsule(s) Oral QAM every morning 02/15/20 20 Inactive Lyrica 100 mg capsule RxNorm: 172056 Take 1 Capsule(s) Oral QHS every night at bedtime 02/15/20 Inactive Lyrica 100 mg capsule RxNorm: 849328 Take 1 Capsule(s) Oral QHS every night at bedtime 02/15/20 20 Inactive Lyrica 50 mg capsule RxNorm: 212788 Take 1 Capsule(s) Oral QAM every morning 02/15/20 20 Inactive loperamide 2 mg capsule RxNorm: 626983 Take 1 Capsule(s) Oral QID as needed 09/06/19 25 025 Inactive venlafaxine ER 75 mg capsule,extended release 24 hr RxNorm: 980265 Take 3 Capsule(s) Oral QD 06/12/19 22 023 Inactive polyethylene glycol 3350 17 gram/dose oral powder RxNorm: 845039 Take 17=1 capful Gram(s) Oral BID as needed mix with 4-8oz of liquid 06/12/19 22 024 Inactive icosapent ethyl 1 gram capsule RxNorm: 6096245 Take 2 Capsule(s) (2 gm) Oral BID with meals 10/07/19 23 023 Inactive Okay to dispense one 2gm tab if you have that available. Levemir FlexTouch U-100 Insulin 100 unit/mL (3 mL) subcutaneous pen RxNorm: 563217 Inject 80 Unit(s) Subcutaneous BID 07/14/19 23 023 Inactive metoprolol succinate ER 200 mg tablet,extended release 24 hr RxNorm: 477941 Take 1 Tablet(s) Oral QD 08/12/19 025 Inactive hydralazine 50 mg tablet RxNorm: 765255 Take 1 Tablet(s) Oral QID 08/12/19 025 Inactive Soft Touch Lancets RxNorm: miscellaneous 03/04/20 025 Inactive Novolog Flexpen U-100 Insulin aspart 100 unit/mL (3 mL) subcutaneous RxNorm: 6839154 Insert 30 Unit(s) Subcutaneous TID with meals [...] CVX: 115 2008 Procedures Procedure Codes Date Toenail Debridement CPT-4: 45114 08/08/2024 SYS BP LESS 140 CPT-4: G8752 08/08/2024 CUI BP LESS 90 CPT-4: G8754 08/08/2024 Vital Signs Date Vital 08/08/2024 Blood Pressure 1: 130/86 Code: 8480-6 BMI: NaN Code: 68944-2 Heart Rate 1: 87 bpm Code: 8867-4 Height: 5'6 Code: 8302-2 SpO2: 97% Temperature: 36.7 (C) / 98.0 (F) Weight: 387 lbs Code: 3141-9 Functional Status Functional / [...] Performer Location Location Address Codes Cristiano e ([id number]) Home Visit - Est Pt, moderate Diagnosis: Type 2 diabetes mellitus with diabetic polyneuropathy, with long-term current use of insulin[ICD10: E11.42] Diagnosis: Constipation by delayed colonic transit[ICD10: K59.01] Diagnosis: Mixed incontinence[SNOMED: 72600542] Diagnosis: Body mass index [BMI] 60.0-69.9, adult[SNOMED: 872083742]Harrison Stewart [place] on [id number] [place] [id number]-1: [id number] 08/08/2024 Plan of Care Planned Activity Notes Codes Status Date Referral: [facility] [address] [id number] USReferralAppointment Fqfohllpb86/06/2025Patient Education: Patient Medication ZczufcjBvmbjqpta44/25/2025Patient Education: ZzvbqlsnwBbwebwwat77/25/2025 Appointment: Harrison Munson WPtel: [address] [place], [place] [id number] [facility]/U007/11/2024Referral: [facility]/Endocrinology WPtel: [address] [place], [place] [id number] USReferralNo Records Tkmgpdzg27/24/2025ppointment: Harrison Munson WPtel: [address] [facility] 300 [id number] USAWV02/08/2024ppointment: Harrison Munson WPtel: [address] [facility] 300 [id number] USF/U001/11/2024ppointment: AmberSandra schilling WPtel: [address] [facility] 300 [id number] [facility] Up12/09/2022ppointment: Tapan Shirley WPtel: [address] [facility] 300 [id number] USTCM10/26/2022Referral: [facility] WPtel: [address], [address] [id number] USReferralRecords Eptyayfw21/08/2023ppointment: Tapan Shirley WPtel: [address] [facility] 300 [id number] USF/U008/11/2022ppointment: Tapan Shirley WPtel: [address] [facility] 300 [id number] USF/U007/14/2022ppointment: Tapan Shirley WPtel: [address] [facility] 300 [id number] USF/U002/10/2022eferral: [facility] WPtel: [address] [place] HWWuyqpympUgbiepmdl45/12/2022Referral: General CardiologyReferralCompleted 1Referral: General PsychologistReferralClosedReferral: General PsychiatristReferralPatient/Family [...] Sister Jyotsna involved in his care cell# [phone] Guardian: Giulia (tapan met in person 09/01/21), now has Lexii (same group as giulia)AWV 9. Lab Schedule: Mar-*September (CBC with diff, CMP, [...] appointment 05.26.2024 with Jessa Webster MD at [facility]. Start Pioglitazone 15 mg QD. Stop Basaglar insulin. Increase Ozempic 2 mg once wkly. Continue Humalin R U-500 100 units with meals TID. FOLLOW UP 2 MONTHS. If BG >400 add 50 units to next scheduled dose of Humalin R U 500 insulin 06/12/2024
--- OUTSIDE RECORDS SUMMARY | 2024-10-19 18:17 | XMS_ITS | CCD ---
Author Name Cecilio Durham Address [address] [place] [address] Phone Organization [facility] Phone Care Team Providers Care Senior Tableau Developer Name Role Phone Harrison Durham Primary Care Provider Leona vailable Unavailable Chronic Care Management Unavaila ble Summary Purpose DataExchange Insurance Providers Payer name Policy type / Coverage type Covered republican ID Effective Begin Date Effective End Date [place] Part B [id number] Unknown Unknown [place] Medicare Part B [id number] Unknown Unknown Family history Sister Brittany Suggs Diagnosis Age At Onset No Family Disease Entered N/A Runs in the family Diagnosis Age At Onset No Known Diseases N/A Sister Blanka Mcduffie Diagnosis Age At Onset No Family Disease Entered N/A Social History Social History Element Codes Description Effec tive Dates Tobacco history SNOMED CT: 552394464 Never smoker 01/16 Sexually Active? Unknown No [...] Fpc 09/03/[address]: 494348222 No Alcohol Consum ption 09/02/2020 Allergies, Adverse Reactions, Alerts Substance Reaction Codes Entered Date Inactivated Date Status * NO KNOWN FOOD ALLERGIES Zsueyuo4107/13/2023No Inactive DateActiveLISINOPRILRxNorm: 143231402/12/2020No Inactive DateActiveMetformin [id number] Inactive DateActive* NO KNOWN ENVIRONMENTAL [id number]/27/2024No Inactive DateActive Problems Condition Codes Effective Dates Condition St atus Candidal intertrigo ICD-10: B37.2 ICD-9: 112.3015ActiveHemorrhoidsICD-10: K64.9 ICD-9: 455.6015ActiveHyperlipidemia associated with type 2 diabetes mellitusICD-10: E11.69 ICD-9: 250.80015ActiveHypertensive heart disease without heart failure ICD-10: I11.9 ICD-9: 402.90015ActiveHypokalemiaICD-10: E87.6 ICD-9: 276.8015ActiveOnychogryposisICD-10: L60.2 ICD-9: 703.8015ActiveStage 2 chronic 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ICD-10: E11.22 ICD-9: 250.40015ActiveType 2 diabetes mellitus with diabetic polyneuropathy, with long-term current use of insulinICD-10: E11.42 ICD-9: 250.6001tiveAdvance care planningICD-10: Z71.89 ICD-9: V65.4912/4ActiveBMI 60.0-69.9, adultICD-10: Z68.44 ICD-9: V85.4410/4ActiveDiabetic neuropathy associated with type 2 diabetes mellitusICD-10: E11.40 ICD-9: 250.6010/4ActiveLow back painICD-10: M54.50 ICD-9: 724.210/4ActiveParaparesis of both lower limbsICD-10: G82.20 ICD-9: 344.110/ctivePhysical deconditioningICD-10: R53.81 ICD-9: 799.310/ctivePVD (peripheral vascular disease)ICD-10: I73.9 ICD-9: 443.910ctiveAdvanced care planning - to document end of life ckddujawbpsBhzrgne63/24/2024ctiveAmputated toe of right footICD-10: S98.131A ICD-9: 895.009ctiveAnnual physical examICD-10: Z00.00 ICD-9: V70.009ctiveConstipation by delayed colonic transitICD-10: K59.01 ICD-9: 564.01002/08/2024ctiveHistory of anemia due to CKDICD-10: N18.9 ICD-9: 585.909/ctiveHx of deep venous thrombosisICD-10: Z86.718 ICD-9: V12.51002/08/2024ctiveHypercoagulable stateICD-10: D68.59 ICD-9: 289.8109/ctiveLearning disabilityICD-10: F81.9 ICD-9: 315.209/ctiveLower extremity edemaICD-10: R60.0 ICD-9: 782.309/ctiveMajor depression, recurrentICD-10: F33.9 ICD-9: 296.3009ctivePressure ulcer of left calf, unstageableICD-10: L89.890 ICD-9: 707.0909ctiveReducible umbilical herniaICD-10: K42.9 ICD-9: 553.109/ctiveSeizure disorderICD-10: G40.909 ICD-9: 345.9009ctiveVitamin D deficiencyICD-10: E55.9 ICD-9: 268.909ctiveCallus of heelICD-10: L84 ICD-9: 83218esolvedGout due to renal impairmentICD-10: M10.30 ICD-9: 274.1005esolvedHyperhidrosis of palmsICD-10: L74.512 ICD-9: 705.21010/12/2023esolvedHyperlipidemia, unspecifiedICD-10: E78.5 ICD-9: 272.405/esolvedOther half-way (current) drug therapyICD-10: Z79.899 ICD-9: V58.6905esolvedPain of [...] tagICD-10: L91.8 ICD-9: 701.904esolvedCoronary artery disease involving [place] coronary artery of [place] heart, angina presence unspecifiedICD-10: I25.10 ICD-9: 414.0102/ctiveInappropriate sexual behaviorICD-10: Z72.89 ICD-9: 312.8910/ctivePre-op evaluationICD-10: Z01.818 ICD-9: V72.8403/ctiveSecondary hypertensionICD-10: I15.9 ICD-9: 405.9903/3ActiveDepressionICD-10: F32.9 ICD-9: 94265/esolvedDVT (deep venous thrombosis)ICD-10: I82.409 ICD-9: 453.4009/esolvedEncounter for immunizationICD-10: Z23 ICD-9: V03.8909/2ResolvedLong term (current) use of insulinICD-10: Z79.4 02/10/2022esolvedMuscular painICD-10: M79.10 ICD-9: 729.109esolvedHypertension associated with diabetesICD-10: E11.59 ICD-9: 250.8008/esolvedContact with and (suspected) exposure to covid-19 ICD-10: Z20.822 ICD-9: V01.7908/1ResolvedOther infective acute otitis externa of left ear ICD-10: H60.392 ICD-9: 380.10081ResolvedScrotal skin lesionICD-10: N50.9 ICD-9: 608.908/esolvedAnemia due to stage 3b chronic kidney diseaseICD- 10: N18.32 ICD-9: 285.2101ResolvedChronic kidney disease, stage 3 unspecifiedICD- 10: N18.3004esolvedContact with and (suspected) exposure to other viral communicable diseasesICD-10: Z20.828 ICD-9: V01.7902/9028JopvmhotOqtnflqnOlcazgy28/28/2020ActiveDiabetes mellitus Type 9Iwupysd82/28/2020ActiveAnemia in chronic kidney diseaseICD-10: D63.1 02/12/2020ResolvedHyperlipidemia, unspecifiedICD-10: E78.509Resolved Medications Medication Codes Instructions Start Date Stop Date Status Fill Instructions metoprolol succinate ER 200 mg tablet,extended release 24 hr RxNorm: 994570 Take 1 Tablet(s) Oral QD 06/19/19 25 No Stop Date Active pantoprazole 40 mg tablet,delayed release RxNorm: 257838 Take 1 Tablet(s) Oral QAM every morning 06/19/19 25 No Stop Date Active hydralazine 50 mg tablet RxNorm: 738336 Take 1 Tablet(s) Oral QID 06/19/19 25 No Stop Date Active carbamazepine 200 mg tablet RxNorm: 382416 Take 1 Tablet(s) Oral BID 06/19/19 25 No Stop Date Active amlodipine 10 mg tablet RxNorm: 655467 Take 1 Tablet(s) Oral QD 06/19/19 25 No Stop Date Active Eliquis 5 mg tablet RxNorm: 8165294 Take 1 Tablet(s) Oral BID 06/19/19 25 No Stop Date Active pen needle, diabetic 30 gauge x 3/16 RxNorm: Use 1 6 times per day w/insulin 06/14/19 25 026 Active pen needle, diabetic 30 gauge x 3/16 RxNorm: Use 1 needle 6 times per day w/insulin 06/14/19 25 025 Inactive nystatin 100,000 unit/gram topical powder RxNorm: 663064 Apply 1 Application Topical BID as needed abdominal/breast /groin folds 05/24/19 25 026 Active pregabalin 100 mg capsule RxNorm: 408598 Take 1 Capsule(s) Oral QAM every morning 05/22/19 25 025 Inactive nystatin 100,000 unit/gram topical powder RxNorm: 937685 Apply 1 Application Topical BID as needed abdominal/breast /groin folds 04/11/20 24 024 Inactive chlorthalidone 25 mg tablet RxNorm: 074074 Take 1 Tablet(s) Oral QAM every morning 04/06/20 24 No Stop Date Active pregabalin 150 mg capsule RxNorm: 789874 Take 1 Capsule(s) Oral QHS every night at bedtime 03/31/20 24 024 Inactive Vascepa 1 gram capsule RxNorm: 1395897 Take 2 Capsule(s) Oral BID 03/30/20 24 025 Active rosuvastatin 40 mg tablet RxNorm: 360618 1 TAB ORALLY EVERY EVENING (DX:CORONARY ARTERY DISEASE) 03/28/20 24 No Stop Date Active venlafaxine ER 75 mg capsule,extended release 24 hr RxNorm: 723517 3 CAPS (225MG) ORALLY DAILY (DX: MOOD DISORDER) 03/28/20 No Stop Date Active pregabalin 100 mg capsule RxNorm: 231955 Take 1 Capsule(s) Oral QAM every morning 03/20/20 Inactive cholecalciferol (vitamin D3) 1,250 mcg (50,000 unit) capsule RxNorm: 335880 Take 1 Capsule(s) Oral QW once a [...] Insulin 100 unit/mL (3 mL) subcutaneous RxNorm: 7553626 Inject 40 Unit(s) Subcutaneous BID 03/07/20 025 Inactive Please dispense one month supply. Humulin R U-500 (Concentrated) Insulin 500 unit/mL subcutaneous soln RxNorm: 404220 Inject 100 Unit(s) Subcutaneous AC before meals [...] PRN) to be use with new Accu Truxton meter 03/04/20 Inactive ok to substitute with any covered alternative test strip FreeStyle Chema 2 Sensor kit RxNorm: Use UD as directed 03/02/20 025 Inactive FreeStyle Chema 2 Sensor kit RxNorm: Use UD as directed 03/02/20 Inactive Pen Needle 30 gauge x 5 RxNorm: Pen(s) Use 1 needle as directed TID 03/02/20 Inactive nystatin 100,000 unit/gram topical powder RxNorm: 789598 Apply 1 Application Topical BID as needed [...] (Concentrated) Insulin 500 unit/mL subcutaneous soln RxNorm: 682488 Inject 100 Unit(s) Subcutaneous TID 02/17/20 24 024 Inactive Humulin R U-500 (Concentrated) Insulin 500 unit/mL subcutaneous soln RxNorm: 207567 Inject 100 Unit(s) Subcutaneous TID 02/10/20 24 024 Inactive Basaglar KwikPen U-100 Insulin 100 unit/mL (3 mL) subcutaneous RxNorm: 5536632 Inject 30 Unit(s) Subcutaneous BID 02/10/20 24 024 Inactive Please dispense one month supply. pregabalin 100 mg capsule RxNorm: 975365 Take 1 Capsule(s) Oral QAM every morning 02/07/20 24 Inactive isosorbide mononitrate ER 60 mg tablet,extended release 24 hr RxNorm: 256908 Take 1 Tablet(s) Oral QD 02/01/20 24 Active aripiprazole 15 mg tablet RxNorm: 318923 Take 1/2 Tablet(s) Oral QD 02/01/20 24 Active torsemide 20 mg tablet RxNorm: 699960 1 TAB ORALLY DAILY (DX: EDEMA) 01/27/20 No Stop Date Active potassium chloride ER 20 mEq tablet,extended release(part/cryst) RxNorm: 4587269 2 TABS (40MEQ) ORALLY TWICE DAILY (DX: HYPOKALEMIA) 01/27/20 24 Inactive cephalexin 500 mg capsule RxNorm: 925621 Take 1 Capsule(s) Oral QID 12/17/19 24 024 Inactive cephalexin 500 mg capsule RxNorm: 359501 Take 1 Capsule(s) Oral QID 12/17/19 24 024 Inactive acetaminophen 500 mg tablet RxNorm: 392203 (MAX APAP:4GM/24HR) Take 1 Tablet(s) Oral TID as needed for pain 12/10/19 24 Inactive torsemide 20 mg tablet RxNorm: 359549 Take 1 Tablet(s) Oral QD 10/26/19 24 025 Inactive potassium chloride ER 20 mEq tablet,extended release RxNorm: 663518 Take 2 Tablet(s) Oral BID 10/26/19 24 Inactive torsemide 20 mg tablet RxNorm: 322009 Take 1 Tablet(s) Oral QD 10/26/19 24 Inactive potassium chloride ER 20 mEq tablet,extended release RxNorm: 747787 Take 2 Tablet(s) Oral BID 10/26/19 24 Inactive Artificial Tears (PF) 0.1 %-0.3 % drops in a dropperette RxNorm: 833386 Apply 1-2 Drop(s) Both eyes BID as needed 09/28/19 24 Inactive erythromycin 5 mg/gram (0.5 %) eye ointment RxNorm: 882682 Apply 1 Application Both eyes QHS every night at bedtime Instill ~1 cm ribbon into affected eye 09/28/19 24 024 Inactive Artificial Tears (PF) 0.1 %-0.3 % drops in a dropperette RxNorm: 749921 Apply 1-2 Drop(s) Both eyes BID as needed 09/28/19 24 024 Inactive erythromycin 5 mg/gram (0.5 %) eye ointment RxNorm: 814995 Apply 1 Application Both eyes QHS every night at bedtime Instill ~1 cm ribbon into affected eye 09/28/19 24 024 Inactive acetaminophen 500 mg tablet RxNorm: 313569 (MAX APAP:4GM/24HR) Take 1 Tablet(s) Oral TID as needed for pain 09/24/19 24 024 Inactive carvedilol 25 mg tablet RxNorm: 118309 Take 1 Tablet(s) Oral QD 09/08/19 No Stop Date Active pregabalin 100 mg capsule RxNorm: 987957 Take 1 Capsule(s) Oral QAM every morning 09/07/19 24 024 Inactive ezetimibe 10 mg tablet RxNorm: 575608 Take 1 Tablet(s) Oral QD 07/13/19 24 025 Inactive bisacodyl 10 mg rectal suppository RxNorm: 948773 Insert 1 Suppository Rectal QD as needed 07/13/19 24 No Stop Date Active polyethylene glycol 3350 17 gram/dose oral powder RxNorm: 031287 Take 17 Gram(s) Oral BID as needed mix in 4-8ox water 07/13/19 24 025 Inactive ketoconazole 2 % shampoo RxNorm: 344715 Apply 1 Application Topical UD as directed 07/13/19 No Stop Date Active Ozempic 1 mg/dose (4 mg/3 mL) subcutaneous pen injector RxNorm: 5046545 Inject 1 Milligram(s) Subcutaneous QW once a week 07/13/19 24 No Stop Date Active Guaifenesin AC 10 mg-100 mg/5 mL oral liquid RxNorm: 156529 Take 10 Milliliter(s) Oral Q4H every four hours as needed 02/27/20 24 No Stop Date Active ammonium lactate 12 % topical cream RxNorm: 637872 Apply 1 Application Topical BID 07/13/19 24 025 Inactive hydrocortisone 2.5 % topical cream RxNorm: 520362 Apply 1 Application Topical BID as needed 07/13/19 No Stop Date Active rosuvastatin 20 mg sprinkle capsule RxNorm: 7824912 Take 1 Capsule(s) Oral QD 07/13/19 24 025 Inactive rosuvastatin 40 mg tablet RxNorm: 783302 Take 1 Tablet(s) Oral QPM every evening 07/13/19 24 024 Inactive aripiprazole 15 mg tablet RxNorm: 300429 Take 1/2 Tablet(s) Oral QD 07/13/19 24 024 Inactive isosorbide mononitrate ER 60 mg tablet,extended release 24 hr RxNorm: 643224 Take 1 Tablet(s) Oral QD 07/13/19 24 024 Inactive Vascepa 1 gram capsule RxNorm: 0338026 Take 2 Capsule(s) Oral BID 07/13/19 24 024 Inactive venlafaxine ER 75 mg capsule,extended release 24 hr RxNorm: 556904 Take 3 Capsule(s) Oral QD 07/13/19 24 024 Inactive Basaglar KwikPen U-100 Insulin 100 unit/mL (3 mL) subcutaneous RxNorm: 4800087 Inject 30U SubQ twice daily 07/07/19 24 024 Inactive Please dispense one month supply. Basaglar KwikPen U-100 Insulin 100 unit/mL (3 mL) subcutaneous RxNorm: 6513773 Inject 30U SubQ twice daily 07/07/19 24 024 Inactive Please dispense one month supply. pregabalin 150 mg capsule RxNorm: 827210 Take 1 Capsule(s) Oral QHS every night at bedtime 07/05/19 24 024 Inactive pregabalin 150 mg capsule RxNorm: 868184 Take 1 Capsule(s) Oral QHS every night at bedtime 07/05/19 24 024 Inactive polyethylene glycol 3350 17 gram/dose oral powder RxNorm: 084505 Take 1 Packet Oral QD as needed (1 packet = 17g) mix with 4-8oz of liquid 06/15/19 024 Inactive bisacodyl 10 mg rectal suppository RxNorm: 457900 Insert one suppository per rectum once daily as needed for constipation 06/15/19 024 Inactive bisacodyl 10 mg rectal suppository RxNorm: 762459 Insert one suppository per rectum once daily as needed for constipation 06/15/19 024 Inactive pregabalin 100 mg capsule RxNorm: 984618 Take 1 Capsule(s) Oral QAM every morning 04/27/20 024 Inactive Levemir FlexPen 100 unit/mL (3 mL) solution subcutaneous insulin pen RxNorm: 503800 Inject 30 Unit(s) Subcutaneous BID 04/27/20 024 Inactive rosuvastatin 40 mg tablet RxNorm: 657641 Take 1 Tablet(s) Oral QPM every evening 04/16/20 024 Inactive D/C rosuvastatin 20mg venlafaxine ER 75 mg capsule,extended release 24 hr RxNorm: 295462 Take 3 Capsule(s) Oral QD 04/14/20 023 Inactive pregabalin 100 mg capsule RxNorm: 164347 Take 1 Capsule(s) Oral QAM every morning [...] strip clotrimazole 1 % topical cream RxNorm: 582906 Take apply topically to abdominal folds twice daily for 14 days 03/12/20 024 Inactive Ozempic 1 mg/dose (4 mg/3 mL) subcutaneous pen injector RxNorm: 2765250 Inject 1 Milligram(s) Subcutaneous QW once a week 03/11/20 023 Inactive rosuvastatin 20 mg tablet RxNorm: 121640 Take 1 Tablet(s) Oral QD 02/26/20 023 Inactive d/c pravastatin 80mg Ozempic 1 mg/dose (4 mg/3 mL) subcutaneous pen injector RxNorm: 1807550 Inject 1 Milligram(s) Subcutaneous QW once a week 02/20/20 023 Inactive pregabalin 150 mg capsule RxNorm: 574118 Take 1 Capsule(s) Oral HS at bed time 02/19/20 023 Inactive pregabalin 100 mg capsule RxNorm: 909362 Take 1 Capsule(s) Oral QAM every morning 02/18/20 023 Inactive venlafaxine ER 75 mg capsule,extended release 24 hr RxNorm: 500433 Take 3 Capsule(s) Oral QD 02/04/20 23 023 Inactive FreeStyle Chema 2 Sensor kit RxNorm: use as directed 02/04/20 23 023 Inactive FreeStyle Chema 2 Sensor kit RxNorm: use as directed 02/04/20 23 024 Inactive fluconazole 150 mg tablet RxNorm: 194637 Take 1 Tablet(s) Oral on day 3 and on day 6 02/03/20 024 Inactive venlafaxine ER 150 mg capsule,extended release 24 hr RxNorm: 645324 Take 1 Capsule(s) Oral QD 02/03/20 23 023 Inactive chlorthalidone 25 mg tablet RxNorm: 498397 Take 1 Tablet(s) Oral QAM every morning 02/03/20 23 024 Inactive acetaminophen 500 mg tablet RxNorm: 506723 1 TABLET ORALLY 3 TIMES DAILY (MAX APAP:4GM/24HR) 12/15/19 23 023 Inactive clotrimazole 1 % topical cream RxNorm: 376155 apply 1g topically to top of feet and in between toes BID 12/09/19 23 025 Inactive potassium chloride ER 20 mEq tablet,extended release RxNorm: 586984 Take 1 Tablet(s) Oral BID 12/09/19 024 Inactive d/c 20mEq once daily (sent from hospital) nystatin 100,000 unit/gram topical powder RxNorm: 482245 APPLY TO AFFECTED AREAS TOPICALLY 2 TIMES DAILY 11/21/19 023 Inactive Nystop 100,000 unit/gram topical powder RxNorm: 388517 Apply to abd folds, under breasts and L side of groin Topical BID x 14 days, then BID PRN 11/20/19 023 Inactive dx: yeast dermatitis [place] Ultra Strength 4 %-30 %-10 % topical cream RxNorm: 602705 Apply 1 Gram(s) Topical QID PRN to feet and legs for neuropathic pain 11/11/19 024 Inactive clotrimazole 1 % topical cream RxNorm: 934581 Apply 1/2 Gram(s) Topical BID Apply to affected areas of groin, periarea, and abdominal topically 2 times daily 11/10/19 023 Inactive hydrocortisone 2.5 % topical cream RxNorm: 261537 Apply 1/2 Gram(s) Topical BID as needed 11/10/19 024 Inactive Levemir FlexPen 100 unit/mL (3 mL) solution subcutaneous insulin pen RxNorm: 235521 Inject 30 Unit(s) Subcutaneous BID 10/07/19 023 Inactive Humulin R U-500 (Concentrated) Insulin 500 unit/mL subcutaneous soln RxNorm: 613548 Inject 100 Unit(s) Subcutaneous TID 10/07/19 024 Inactive Ozempic 0.25 mg or 0.5 mg (2 mg/3 mL) subcutaneous pen injector RxNorm: 4883557 Inject 1/2 Milligram(s) Subcutaneous QW once a week 10/07/19 024 Inactive aripiprazole 15 mg tablet RxNorm: 022489 1/2 TAB (7.5MG) ORALLY DAILY (DX:MAJOR DEPRESSIVE DISORDER) 09/23/19 023 Inactive Accu-Chek Guide test strips RxNorm: Use 1 Test Strip QID 09/15/19 023 Inactive ok to substitute with any covered alternative test strip Lancets,Thin 28 gauge RxNorm: Use 1 as directed QID 09/15/19 23 023 Inactive torsemide 20 mg tablet RxNorm: 394945 Take 1 Tablet(s) Oral BID 09/09/19 23 024 Inactive d/c once daily dosing carvedilol 25 mg tablet RxNorm: 559622 Take 1 Tablet(s) Oral QD 08/25/19 23 024 Inactive pregabalin 150 mg capsule RxNorm: 326038 1 Capsule(s) Oral HS at bed time 08/18/19 23 023 Inactive pregabalin 100 mg capsule RxNorm: 174025 1 Capsule(s) Oral QAM every morning 08/18/19 23 023 Inactive carvedilol 25 mg tablet RxNorm: 167708 1 Tablet(s) Oral QD 07/28/19 23 023 Inactive lisinopril 20 mg tablet RxNorm: 997266 Give 1 Tablet(s) Oral QD 07/28/19 23 023 Inactive Lyrica 150 mg capsule RxNorm: 205485 Take 1 Capsule(s) Oral QHS every night at bedtime 07/19/19 23 023 Inactive d/c 100mg dose Diflucan 150 mg tablet RxNorm: 221089 Take 1 Tablet(s) Oral QD repeat on day 3 and 6 07/19/19 23 023 Inactive pregabalin 100 mg capsule RxNorm: 290433 Take 1 Capsule(s) Oral QAM every morning 07/19/19 23 023 Inactive gatifloxacin 0.5 % eye drops RxNorm: 979718 Instill 1 Drop(s) as directed TID Instill 1 drop in to affected eye(s) starting 1 day prior to surgery and continue until gone (do not exceed 4 weeks). 07/13/19 23 023 Inactive carvedilol 25 mg tablet RxNorm: 878799 2 Tablet(s) Oral BID 07/13/19 23 023 Inactive Humulin R Regular U-100 Insulin 100 unit/mL injection solution RxNorm: 410994 85 Unit(s) Injection TID 07/13/19 23 023 Inactive ketorolac 0.5 % eye drops RxNorm: 689586 Instill 1 Drop(s) as directed QID Instill 1 drop into affected eye(s) 4 times daily starting 1 day prior to surgery and continue until gone (do not exceed 4 weeks). 07/13/19 23 023 Inactive Diflucan 150 mg tablet RxNorm: 995339 Take 1 Tablet(s) Oral QD repeat on day 3 and 6 06/30/19 23 023 Inactive Accu-Chek Guide test strips RxNorm: Use 1 Test Strip QID Use 1 test strip to monitor blood glucose 4 times daily and as needed. Dx:E11.42. 06/23/19 23 023 Inactive ok to substitute with any covered alternative test strip dextromethorphan-gu aifenesin 10 mg-100 mg/5 mL oral liquid RxNorm: 008440 Take 10 Milliliter(s) Oral every 4 hours as needed for cough 06/19/19 23 023 Inactive dextromethorphan-gu aifenesin 10 mg-100 mg/5 mL oral liquid RxNorm: 848637 Take 10 Milliliter(s) Oral every 4 hours as needed for cough 06/19/19 23 023 Inactive Lyrica 150 mg capsule RxNorm: 736164 Take 1 Capsule(s) Oral QHS every night at bedtime 06/18/19 23 023 Inactive d/c 100mg dose aripiprazole 15 mg tablet RxNorm: 088113 /2 TAB (7.5MG) ORALLY DAILY (DX:MAJOR DEPRESSIVE DISORDER) 06/05/19 23 023 Inactive pregabalin 100 mg capsule RxNorm: 808094 1 Capsule(s) Oral QAM every morning 06/02/19 23 023 Inactive Banophen 50 mg capsule RxNorm: 9370943 Take 1 Capsule(s) Oral Q6H every 6 hours as needed 05/19/19 23 No Stop Date Active Novolog Flexpen U-100 Insulin aspart 100 unit/mL (3 mL) subcutaneous RxNorm: 1934059 Inject 10 Unit(s) Subcutaneous QHS every night at bedtime with nighttime snack 04/08/20 022 Inactive Novolog Flexpen U-100 Insulin aspart 100 unit/mL (3 mL) subcutaneous RxNorm: 9119001 Inject 42 Unit(s) Subcutaneous TID in addition to sliding scale 04/08/20 022 Inactive d/c 36u albuterol sulfate HFA 90 mcg/actuation aerosol inhaler RxNorm: 5468406 Take 2 Puff(s) Inhalation Q4H every four hours as needed as needed for SOB, cough, or wheezing 04/07/20 030 Active Banophen 50 mg capsule RxNorm: 6803077 Take 1 Capsule(s) Oral Q6H every 6 hours as needed 04/06/20 023 Inactive diphenhydramine 50 mg tablet RxNorm: 8071713 Take 1 Tablet(s) Oral Q6H every 6 hours as needed 04/06/20 022 Inactive diphenhydramine 50 mg tablet RxNorm: 2721921 1 Tablet(s) Oral Q6H every 6 hours as needed 04/06/20 022 Inactive Abilify 15 mg tablet RxNorm: 575164 1/2 Tablet(s) Oral QD 03/10/20 023 Inactive Shingrix (PF) 50 mcg/0.5 mL intramuscular suspension, kit RxNorm: 8847018 Administer 1/2 Milliliter(s) Intramuscular QD one time shingrix step 2 ( step 1 given 11/04/21) WITH needle - Nursing please administer upon arrival and once administered post a bridge message with date of administration, research nurse practitioner, expiration date, and lot# so we can update [facility] 02/18/20 22 022 Inactive dispense with needle Shingrix (PF) 50 mcg/0.5 mL intramuscular suspension, kit RxNorm: 9612605 Administer 1/2 Milliliter(s) Intramuscular QD one time shingrix step 2 ( step 1 given 11/04/21) WITH needle - Nursing please administer upon arrival and once administered post a bridge message with date of administration, research nurse practitioner, expiration date, and lot# so we can update [facility] 02/18/20 22 022 Inactive dispense with needle polyethylene glycol 3350 17 gram/dose oral powder RxNorm: 717100 Take 17=1 capful Gram(s) Oral QD mix with 4-8oz of liquid 01/08/20 22 025 Inactive take this in addition to BID prn order Lyrica 100 mg capsule RxNorm: 236363 Take 1 Capsule(s) Oral QAM every morning 01/08/20 22 022 Inactive d/c 50mg dose acetaminophen 500 mg tablet RxNorm: 316573 Take 1 Tablet(s) Oral TID 01/08/20 22 022 Inactive d/c PRN order Lyrica 150 mg capsule RxNorm: 395395 Take 1 Capsule(s) Oral QHS every night at bedtime 01/08/20 22 023 Inactive d/c 100mg dose Abilify 5 mg tablet RxNorm: 393255 Take 1 Tablet(s) Oral QD take 1 tab po QD #30 refill 5 dx: MDD 12/12/19 22 022 Inactive Abilify 5 mg tablet RxNorm: 864748 Take 1 Tablet(s) Oral QD take 1 tab po QD #30 refill 5 dx: MDD 12/12/19 22 022 Inactive Novolog Flexpen U-100 Insulin aspart 100 unit/mL (3 mL) subcutaneous RxNorm: 4198446 Inject 42 Unit(s) Subcutaneous TID in addition to sliding scale 12/10/19 22 022 Inactive d/c 36u chlorthalidone 25 mg tablet RxNorm: 934078 Take 1 Tablet(s) Oral QAM every morning 12/10/19 22 023 Inactive pregabalin 50 mg capsule RxNorm: 857044 Take 1 Capsule(s) Oral QAM every morning 11/12/19 22 022 Inactive tetanus-diphtheria toxoids-Td 2 Lf unit-2 Lf unit/0.5 mL IM suspension RxNorm: 139 Take 0.5 Miscellaneous Intramuscular 11/12/19 22 022 Inactive need tdap - nursing to administer upon arrival pregabalin 50 mg capsule RxNorm: 452109 Take 1 Capsule(s) Oral QAM every morning 10/16/19 22 10/04/2 022 Inactive pregabalin 50 mg capsule RxNorm: 960906 Take 1 Capsule(s) Oral QAM every morning 10/16/19 22 Inactive pregabalin 50 mg capsule RxNorm: 009402 1 Capsule(s) Oral QAM every morning 10/15/19 22 Inactive Shingrix (PF) 50 mcg/0.5 mL intramuscular suspension, kit RxNorm: 1481029 Administer 1/2 Milliliter(s) Intramuscular one time Nursing please administer upon arrival and once administered post a bridge message with date of administration, research nurse practitioner, expiration date, and lot# so we can update [facility]. 10/09/19 22 Inactive shingrix step 1 Shingrix (PF) 50 mcg/0.5 mL intramuscular suspension, kit RxNorm: 8844149 Administer 1/2 Milliliter(s) Intramuscular one time Nursing please administer upon arrival and once administered post a bridge message with date of administration, research nurse practitioner, expiration date, and lot# so we can update [facility]. 10/09/19 22 022 Inactive shingrix step 1 tetanus,diphtheria toxoid ped (PF) 5 Lf unit-25 Lf unit/0.5 mL IM susp RxNorm: 28 Inject 1 Intramuscular once ADMINISTER PER CDC GUIDELINES 10/08/19 Inactive Tdap dx: tetanus prophylaxis, please dispense syringe and needle tetanus,diphtheria toxoid ped (PF) 5 Lf unit-25 Lf unit/0.5 mL IM susp RxNorm: 28 Inject 1 Intramuscular once ADMINISTER PER CDC GUIDELINES 10/08/19 Active Tdap dx: tetanus prophylaxis, please dispense syringe and needle Novolog Flexpen U-100 Insulin aspart 100 unit/mL (3 mL) subcutaneous RxNorm: 0082722 Inject 10 Unit(s) Subcutaneous QHS every night at bedtime with nighttime snack 10/08/19 Inactive Shingrix (PF) 50 mcg/0.5 mL intramuscular suspension, kit RxNorm: 0703190 ADMINISTER 2-DOSE SERIES PER CDC GUIDELINES 10/08/19 22 Active Shingrix (PF) 50 mcg/0.5 mL intramuscular suspension, kit RxNorm: 3656316 ADMINISTER 2-DOSE SERIES PER CDC GUIDELINES 10/08/19 22 Inactive Novolog Flexpen U-100 Insulin aspart 100 unit/mL (3 mL) subcutaneous RxNorm: 9060144 Inject 36 Unit(s) Subcutaneous TID in addition to sliding scale 10/08/19 22 Inactive cholecalciferol (vitamin D3) 1,250 mcg (50,000 unit) capsule RxNorm: 095315 Take 1 Capsule(s) Oral QW once a week 10/08/19 Inactive Novofine Autocover 30 gauge x 1/3 needle RxNorm: Use 1 Miscellaneous UD as directed Use 1 needle as directed to administer insulin 5 times a day Dx:E11.42. 10/03/19 Inactive ok to substitute with any covered alternative pen needle benzoyl peroxide 10 % topical cleanser RxNorm: 810890 Apply 1 Application Topical QD apply to face, wash rinse and dry once daily (may change to QOD if drying) 08/19/19 022 Inactive (%covered by insurance) #60ml refill 11 dx: acne benzoyl peroxide 10 % topical cleanser RxNorm: 890997 Apply 1 Application Topical QD apply to face, wash rinse and dry once daily (may change to QOD if drying) 08/19/19 022 Inactive (%covered by insurance) #60ml refill 11 dx: acne benzoyl peroxide 10 % topical cleanser RxNorm: 762683 Apply 1 Application Topical QD apply to face, wash rinse and dry once daily (may change to QOD if drying) 08/19/19 22 022 Inactive (%covered by insurance) #60ml refill 11 dx: acne Lyrica 50 mg capsule RxNorm: 623758 Take 1 Capsule(s) Oral QAM every morning Take 1 capsule by mouth once daily 08/19/19 22 022 Inactive benzoyl peroxide 10 % topical cleanser RxNorm: 946890 Apply 1 Application Topical QD apply to face, wash rinse and dry once daily (may change to QOD if drying) 08/19/19 22 022 Inactive (%covered by insurance) #60ml refill 11 dx: acne Lyrica 100 mg capsule RxNorm: 249585 Take 1 Capsule(s) Oral QHS every night at bedtime Take 1 capsule by mouth once daily at bedtime 08/19/19 22 022 Inactive Lyrica 100 mg capsule RxNorm: 235365 Take 1 Capsule(s) Oral QHS every night at bedtime Take 1 capsule by mouth once daily at bedtime 08/16/19 22 022 Inactive Lyrica 50 mg capsule RxNorm: 093657 Take 1 Capsule(s) Oral QAM every morning Take 1 capsule by mouth once daily 08/16/19 22 022 Inactive Levemir FlexTouch U-100 Insulin 100 unit/mL (3 mL) subcutaneous pen RxNorm: 026255 Inject 86 Unit(s) Subcutaneous BID 08/05/19 22 022 Inactive d/c 83units BID Lyrica 100 mg capsule RxNorm: 134249 Take 1 Capsule(s) Oral QHS every night at bedtime Take 1 capsule by mouth once daily at bedtime 07/14/19 22 022 Inactive Lyrica 50 mg capsule RxNorm: 593991 Take 1 Capsule(s) Oral QAM every morning Take 1 capsule by mouth once daily 07/14/19 22 022 Inactive Levemir FlexTouch U-100 Insulin 100 unit/mL (3 mL) subcutaneous pen RxNorm: 184278 Inject 83 Unit(s) Subcutaneous BID 07/08/19 22 [...] test strip hydralazine 50 mg tablet RxNorm: 644268 Take 1 Tablet(s) Oral QID 05/05/20 21 022 Inactive venlafaxine ER 225 mg tablet,extended release 24 hr RxNorm: 241352 Take 1 Tablet(s) Oral QD 05/05/20 21 021 Inactive venlafaxine ER 225 mg tablet,extended release 24 hr RxNorm: 222558 Take 1 Tablet(s) Oral QD 05/05/20 21 022 Inactive isosorbide mononitrate ER 30 mg tablet,extended release 24 hr RxNorm: 340593 Take 1 Tablet(s) Oral QD 05/05/20 21 024 Inactive hydralazine 50 mg tablet RxNorm: 256115 Take 1 Tablet(s) Oral QID 05/05/20 21 021 Inactive aspirin 81 mg tablet,delayed release RxNorm: 224099 Take 1 Tablet(s) Oral QD 03/31/20 21 022 Inactive Vitamin D2 1,250 mcg (50,000 unit) capsule RxNorm: 8408279 Take 1 Capsule(s) Oral QW once a week x 12 weeks 03/31/20 21 022 Inactive Vitamin D2 1,250 mcg (50,000 unit) capsule RxNorm: 5391056 Take 1 Capsule(s) Oral QW once a week 03/31/20 021 Inactive Zetia 10 mg tablet RxNorm: 831924 Take 1 Tablet(s) Oral QD 03/31/20 024 Inactive Zetia 10 mg tablet RxNorm: 487774 Take 1 Tablet(s) Oral QD 03/31/20 021 Inactive hydralazine 25 mg tablet RxNorm: 756836 Take 1 Tablet(s) Oral QID 03/31/20 021 Inactive hydralazine 25 mg tablet RxNorm: 298170 Take 1 Tablet(s) Oral QID 03/31/20 021 Inactive hydralazine 10 mg tablet RxNorm: 130495 Take 1 Tablet(s) Oral QID 03/03/20 021 Inactive cephalexin 500 mg tablet RxNorm: 921418 Take 1 Tablet(s) Oral QID 02/27/20 021 Inactive cephalexin 500 mg tablet RxNorm: 287631 Take 1 Tablet(s) Oral QID 02/27/20 021 Inactive lisinopril 40 mg tablet RxNorm: 144190 Take 1 Tablet(s) Oral QD 02/11/20 21 023 Inactive Eliquis 5 mg tablet RxNorm: 3487600 Take 1 Tablet(s) Oral BID 01/05/20 21 025 Inactive Eliquis 5 mg tablet RxNorm: 2082756 Take 2 Tablet(s) Oral QD 01/01/20 21 021 Inactive Lyrica 50 mg capsule RxNorm: 243437 Take 1 Capsule(s) Oral QAM every morning 12/24/19 21 021 Inactive Lyrica 100 mg capsule RxNorm: 734660 Take 1 Capsule(s) Oral QHS every night at bedtime 12/24/19 21 021 Inactive clotrimazole 1 % topical cream RxNorm: 469134 Apply to right foot and toes Topical BID 12/04/19 21 023 Inactive metoprolol succinate ER 200 mg tablet,extended release 24 hr RxNorm: 326323 Take 1 Tablet(s) Oral QD 12/04/19 023 Inactive ciprofloxacin 500 mg tablet RxNorm: 276914 Take 1 Tablet(s) Oral QD 11/30/19 21 021 Inactive DX ofloxacin otic drops Accu-Chek Guide test strips RxNorm: USE 1 TO CHECK GLUCOSE 4 TIMES DAILY AND NEEDED 11/15/19 21 023 Inactive Blood Glucose Test strips RxNorm: Use 1 Test Strip QID at PRN 11/05/19 21 023 Inactive E11.42 lisinopril 30 mg tablet RxNorm: 698576 Take 1 Tablet(s) Oral QD 10/30/19 021 Inactive lisinopril 20 mg tablet RxNorm: 146371 Take 1 Tablet(s) Oral QD 10/23/19 21 021 Inactive lisinopril 20 mg tablet RxNorm: 649535 Take 1 Tablet(s) Oral QD 10/23/19 21 021 Inactive lisinopril 10 mg tablet RxNorm: 758385 Take 1 Tablet(s) Oral QD 10/02/19 21 021 Inactive icosapent ethyl 1 gram capsule RxNorm: 4128757 Take 2 Capsule(s) (2 gm) Oral BID with meals 09/12/19 024 Inactive Okay to dispense one 2gm tab if you have that available. icosapent ethyl 1 gram capsule RxNorm: 0819593 Take 2 Capsule(s) Oral BID 09/12/19 21 021 Inactive Okay to dispense one 2gm tab if you have that available. amlodipine 10 mg tablet RxNorm: 377268 Take 1 Tablet(s) Oral QD 09/04/19 21 021 Inactive aspirin 81 mg tablet,delayed release RxNorm: 789489 Take 1 Tablet(s) Oral QD 09/04/19 21 021 Inactive Levemir FlexTouch U-100 Insulin 100 unit/mL (3 mL) subcutaneous pen RxNorm: 453631 Inject 150 Unit(s) Subcutaneous BID 09/04/19 022 Inactive venlafaxine ER 150 mg tablet,extended release 24 hr RxNorm: 283320 Take 1 Tablet(s) Oral QD 09/04/19 Inactive clotrimazole-betame thasone 1 %-0.05 % topical cream RxNorm: 872551 Apply to rash on red area on left abdomen/chest Topical BID 08/10/19 Inactive amlodipine 5 mg tablet RxNorm: 433704 Take 1 Tablet(s) Oral QD 07/31/19 Inactive cephalexin 500 mg tablet RxNorm: 786990 Take 1 Tablet(s) Oral BID BID - Twice Daily 07/31/19 Inactive Start 08/01/20 senna 8.6 mg tablet RxNorm: 932101 Take 1 Tablet(s) Oral QD 07/08/19 025 Inactive pantoprazole 40 mg tablet,delayed release RxNorm: 913188 Take 1 Tablet(s) Oral QAM every morning 07/08/19 025 Inactive clopidogrel 75 mg tablet RxNorm: 631372 Take 1 Tablet(s) Oral QD 07/08/19 021 Inactive Blood Glucose Test strips RxNorm: Use 1 Test Strip QID at PRN 07/08/19 Inactive E11.42 Novolog Flexpen U-100 Insulin aspart 100 unit/mL (3 mL) subcutaneous RxNorm: 0619243 Administer per sliding scale Milliliter(s) Subcutaneous TID 151-200: 10 u; 201-250: 20 u; 251-300: 30 u; 301-350: 40 u; 351-400: 50 u. 07/08/19 022 Inactive lisinopril 5 mg tablet RxNorm: 204419 Take 1 Tablet(s) Oral QD 07/08/19 021 Inactive Novolog Flexpen U-100 Insulin aspart 100 unit/mL (3 mL) subcutaneous RxNorm: 8868387 Inject 85 Unit(s) Subcutaneous TID 07/08/19 022 Inactive pravastatin 80 mg tablet RxNorm: 550929 Take 1 Tablet(s) Oral QHS every night at bedtime 07/08/19 023 Inactive clotrimazole 1 % topical cream RxNorm: 404027 Apply to bilateral groin areas Topical BID 07/08/19 022 Inactive metoprolol succinate ER 200 mg tablet,extended release 24 hr RxNorm: 383626 Take 1 Tablet(s) Oral QD 07/08/19 021 Inactive Vitamin D3 25 mcg (1,000 unit) tablet RxNorm: 332647 Take 1 Tablet(s) Oral QD 07/08/19 021 Inactive isosorbide dinitrate 30 mg tablet RxNorm: 367062 Take 1 Tablet(s) Oral QD 07/08/19 021 Inactive carbamazepine 200 mg tablet RxNorm: 085348 Take 1 Tablet(s) Oral BID 07/08/19 025 Inactive Levemir FlexTouch U-100 Insulin 100 unit/mL (3 mL) subcutaneous pen RxNorm: 165481 Inject 140 Unit(s) Subcutaneous BID 07/08/19 021 Inactive torsemide 20 mg tablet RxNorm: 091887 Take 1 Tablet(s) Oral QD 07/08/19 023 Inactive venlafaxine 75 mg tablet RxNorm: 916824 Take 1 Tablet(s) Oral QD 07/08/19 021 Inactive acetaminophen 500 mg tablet RxNorm: 910793 Take 1 Tablet(s) Oral TID as needed for headache 06/18/19 021 Inactive acetaminophen 500 mg tablet RxNorm: 185996 Take 1 Tablet(s) Oral TID as needed for headache 06/18/19 021 Inactive Lyrica 100 mg capsule RxNorm: 010234 Take 1 Capsule(s) Oral QHS every night at bedtime 06/11/19 021 Inactive Lyrica 50 mg capsule RxNorm: 060033 Take 1 Capsule(s) Oral QAM every morning 06/10/19 21 021 Inactive hydrocortisone 2.5 % topical cream RxNorm: 061496 Apply to bilateral groin creases Topical BID 05/15/20 20 021 Inactive clotrimazole 1 % topical cream RxNorm: 983299 Apply to bilateral groin areas Topical BID 05/15/20 20 Inactive Lyrica 50 mg capsule RxNorm: 407188 Take 1 Capsule(s) Oral QAM every morning 05/14/20 20 Inactive Lyrica 100 mg capsule RxNorm: 374443 Take 1 Capsule(s) Oral QHS every night [...] Inactive Nystop 100,000 unit/gram topical powder RxNorm: 693808 Apply to abd folds, under breasts and L side of groin Topical BID x 14 days, then BID PRN 04/08/20 20 Inactive dx: yeast dermatitis Lyrica 100 mg capsule RxNorm: 883088 Take 1 Capsule(s) Oral QHS every night at bedtime 03/13/20 20 Inactive Lyrica 50 mg capsule RxNorm: 559648 Take 1 Capsule(s) Oral QAM every morning 03/13/20 20 Inactive ketoconazole 2 % shampoo RxNorm: 511644 Apply Topical two times a week with showers 03/11/20 20 024 Inactive cholecalciferol (vitamin D3) 50 mcg (2,000 unit) tablet RxNorm: 253500 Take 1 Tablet(s) Oral QD 03/11/20 021 Inactive Zetia 10 mg tablet RxNorm: 217574 Take 1 Tablet(s) Oral QD 03/07/20 20 021 Inactive Zetia 10 mg tablet RxNorm: 095109 Take 1 Tablet(s) Oral QD 03/07/20 20 020 Inactive Lyrica 50 mg capsule RxNorm: 466586 Take 1 Capsule(s) Oral QAM every morning 02/15/20 20 Inactive Lyrica 100 mg capsule RxNorm: 676973 Take 1 Capsule(s) Oral QHS every night at bedtime 02/15/20 Inactive Lyrica 100 mg capsule RxNorm: 666313 Take 1 Capsule(s) Oral QHS every night at bedtime 02/15/20 Inactive Lyrica 50 mg capsule RxNorm: 240587 Take 1 Capsule(s) Oral QAM every morning 02/15/20 Inactive loperamide 2 mg capsule RxNorm: 636072 Take 1 Capsule(s) Oral QID as needed 09/06/19 025 Inactive venlafaxine ER 75 mg capsule,extended release 24 hr RxNorm: 095631 Take 3 Capsule(s) Oral QD 06/12/19 023 Inactive polyethylene glycol 3350 17 gram/dose oral powder RxNorm: 771477 Take 17=1 capful Gram(s) Oral BID as needed mix with 4-8oz of liquid 06/12/19 22 024 Inactive icosapent ethyl 1 gram capsule RxNorm: 7726835 Take 2 Capsule(s) (2 gm) Oral BID with meals 10/07/19 23 023 Inactive Okay to dispense one 2gm tab if you have that available. Levemir FlexTouch U-100 Insulin 100 unit/mL (3 mL) subcutaneous pen RxNorm: 805644 Inject 80 Unit(s) Subcutaneous BID 07/14/19 23 023 Inactive metoprolol succinate ER 200 mg tablet,extended release 24 hr RxNorm: 460234 Take 1 Tablet(s) Oral QD 08/12/19 025 Inactive hydralazine 50 mg tablet RxNorm: 405506 Take 1 Tablet(s) Oral QID 08/12/19 025 Inactive Soft Touch Lancets RxNorm: miscellaneous 03/04/20 025 Inactive Novolog Flexpen U-100 Insulin aspart 100 unit/mL (3 mL) subcutaneous RxNorm: 9093580 Insert 30 Unit(s) Subcutaneous TID with meals [...] Planned Activity Notes Codes Status Date Referral: [facility] Radiology/Imaging WPtel: [address] [id number] USReferralAppointment Vlaveqzaq72/06/2025Referral: [facility]/Endocrinology WPtel: 7 [facility], [facility] 3 [id number] USReferralNo Records Kzxbfhml89/24/2025Patient Education: Patient Medication WbssblmFlntgobcy33/13/2025ppointment: Harrison Munson WPtel: [address] [facility] 300 [id number] [facility]/08/2024ppointment: Harrison Munson WPtel: [address] [facility] 300 [id number] USF/U001/11/2024ppointment: Sandra Clark WPtel: [address] [place] [address] 300 [id number] [facility] Psych Follow Up12/09/2022ppointment: Tapan Shirley WPtel: [address] [facility] 300 [id number] [facility]10/26/2022Referral: [facility] WPtel: [address] , [address] [id number] USReferralRecords Dhhfyhfc53/08/2023ppointment: Tapan Shirley WPtel: [address] [facility] 300 [id number] US/U008/11/2022ppointment: Tapan Shirley WPtel: [address] [facility] 300 [id number] [facility]/U02/28/2023Appointment: Tapan Shirley WPtel: [address] [facility] [address] [id number] USF/U02Referral: [facility] CARLO WPtel: [address] [facility] [address] [id number] QIOvcrcfmcSaedykfas58/12/2022Referral: General CardiologyReferralCompleted 1Referral: General PsychologistReferralClosedReferral: General PsychiatristReferralPatient/Family [...] Sister Jyotsna involved in his care cell# [phone] Guardian: Giulia (tapan met in person 09/01/21), [...] appointment 05.26.2024 with Jessa Webster MD at [facility]. Start Pioglitazone 15 mg QD. Stop Basaglar insulin. Increase Ozempic 2 mg once wkly. Continue Humalin R U-500 100 units with meals TID. FOLLOW UP 2 MONTHS. If BG >400 add 50 units to next scheduled dose of Humalin R U 500 insulin 06/12/2024
--- OUTSIDE RECORDS SUMMARY | 2024-10-19 18:19 | XMS_ITS | CCD ---
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 Name Role Phone Harrison Durham Primary Care Provider Leona vailable Unavailable Chronic Care Management Unavaila ble Summary Purpose DataExchange Insurance Providers Payer name Policy type / Coverage type Covered green party ID Effective Begin Date Effective End Date Medicare [place] Medicare Part B [id number] Unknown Unknown Medicaid [place] Medicare Part B [id number] Unknown Unknown Family history Sister Brittany Suggs Diagnosis Age At Onset No Family Disease Entered N/A Runs in the family Diagnosis Age At Onset No Known Diseases N/A Sister Blanka Mcduffie Diagnosis Age At Onset No Family Disease Entered N/A Social History Social History Element Codes Description Effec tive Dates Tobacco history SNOMED CT: 422351113 Never smoker 01/16 Sexually Active? Unknown No [...] Alf 09/03/19 [address]: 855429715 No Alcohol Consum ption 09/02/2020 Allergies, Adverse Reactions, Alerts Substance Reaction Codes Entered Date Inactivated Date Status * NO KNOWN FOOD ALLERGIES Ifvkhru9507/13/2023No Inactive DateActiveLISINOPRILRxNorm: 599484302/12/2020No Inactive DateActiveMetformin TBnPnqhwid45/28/2020 Inactive DateActive* NO KNOWN ENVIRONMENTAL DOWCNIGVLFeehjlb97/27/2024 Inactive DateActive Problems Condition Codes Effective Dates [...] planning - to document end of life ukystmndbjpDjvkaum75/24/2024ctiveAmputated toe of right footICD-10: S98.131A ICD-9: 895.009/ctiveAnnual [...] E55.9 ICD-9: 268.909/ctiveCallus of heelICD-10: L84 ICD-9: 04081/esolvedGout due to renal impairmentICD-10: M10.30 ICD-9: 274.1005/esolvedHyperhidrosis of palmsICD-10: L74.512 ICD-9: 705.21010/12/2023esolvedHyperlipidemia, unspecifiedICD-10: E78.5 ICD-9: 272.405/esolvedOther intermediate (current) drug [...] tagICD-10: L91.8 ICD-9: 701.904esolvedCoronary artery disease involving hoopa coronary artery of hoopa heart, angina presence unspecifiedICD-10: I25.10 ICD-9: 414.0102/ctiveInappropriate sexual behaviorICD-10: Z72.89 ICD-9: 312.8910/ctivePre-op evaluationICD-10: Z01.818 ICD-9: V72.8403/ctiveSecondary hypertensionICD-10: I15.9 ICD-9: 405.9903/3ActiveDepressionICD-10: F32.9 ICD-9: 26983/esolvedDVT (deep venous thrombosis)ICD-10: I82.409 ICD-9: 453.4009/esolvedEncounter for [...] to other viral communicable diseasesICD-10: Z20.828 ICD-9: V01.7902/0490RjsowfyeLhuapvmuBvduupb50/28/2020ActiveDiabetes mellitus Type 3Isnkxbi36/28/2020ActiveAnemia in chronic kidney diseaseICD-10: D63.1 02/12/2020ResolvedHyperlipidemia, unspecifiedICD-10: E78.509Resolved Medications Medication Codes Instructions Start Date Stop Date Status Fill Instructions nystatin 100,000 unit/gram topical powder RxNorm: 626869 Apply 1 Application Topical BID as needed abdominal/breast /groin folds 11/26 024 Inactive chlorthalidone 25 mg tablet RxNorm: 667724 Take 1 Tablet(s) Oral QAM every morning 04/06/20 No Stop Date Active pregabalin 150 mg capsule RxNorm: 937817 Take 1 Capsule(s) Oral QHS every night at bedtime 03/31/20 Inactive Vascepa 1 gram capsule RxNorm: 7523139 Take 2 Capsule(s) Oral BID 03/30/20 Active rosuvastatin 40 mg tablet RxNorm: 754492 1 TAB ORALLY EVERY EVENING (DX:CORONARY ARTERY DISEASE) 03/28/20 No Stop Date Active venlafaxine ER 75 mg capsule,extended release 24 hr RxNorm: 394488 3 CAPS (225MG) ORALLY DAILY (DX: MOOD DISORDER) 03/28/20 No Stop Date Active pregabalin 100 mg capsule RxNorm: 906292 Take 1 Capsule(s) Oral QAM every morning 03/20/20 Inactive cholecalciferol (vitamin D3) 1,250 mcg (50,000 unit) capsule RxNorm: 008348 Take 1 Capsule(s) Oral QW once a week 03/15/20 Active Pen Needle 30 gauge x 5/16 RxNorm: Pen(s) Use 1 needle as directed TID 03/08/20 Inactive Lancets,Thin 28 gauge RxNorm: Use [...] Insulin 100 unit/mL (3 mL) subcutaneous RxNorm: 8808460 Inject 40 Unit(s) Subcutaneous BID 03/07/20 025 Inactive Please dispense one month supply. Humulin R U-500 (Concentrated) Insulin 500 unit/mL subcutaneous soln RxNorm: 249481 Inject 100 Unit(s) Subcutaneous AC before meals [...] PRN) to be use with new Accu [place] meter 03/04/20 Inactive ok to substitute with any covered alternative test strip FreeStyle Chema 2 Sensor kit RxNorm: Use UD as directed 03/02/20 025 Inactive FreeStyle Chema 2 Sensor kit RxNorm: Use UD as directed 03/02/20 Inactive Pen Needle 30 gauge x 09/29 RxNorm: Pen(s) Use 1 needle as directed TID 03/02/20 Inactive nystatin 100,000 unit/gram topical powder RxNorm: 420684 Apply 1 Application Topical BID as needed [...] (Concentrated) Insulin 500 unit/mL subcutaneous soln RxNorm: 496794 Inject 100 Unit(s) Subcutaneous TID 02/17/20 24 024 Inactive Humulin R U-500 (Concentrated) Insulin 500 unit/mL subcutaneous soln RxNorm: 845067 Inject 100 Unit(s) Subcutaneous TID 02/10/20 24 024 Inactive Radha MendenhallPen U-100 Insulin 100 unit/mL (3 mL) subcutaneous RxNorm: 0179088 Inject 30 Unit(s) Subcutaneous BID 02/10/20 24 024 Inactive Please dispense one month supply. pregabalin 100 mg capsule RxNorm: 486528 Take 1 Capsule(s) Oral QAM every morning 02/07/20 024 Inactive isosorbide mononitrate ER 60 mg tablet,extended release 24 hr RxNorm: 952409 Take 1 Tablet(s) Oral QD 02/01/20 24 025 Active aripiprazole 15 mg tablet RxNorm: 597943 Take 1/2 Tablet(s) Oral QD 02/01/20 24 025 Active torsemide 20 mg tablet RxNorm: 830522 1 TAB ORALLY DAILY (DX: EDEMA) 01/27/20 No Stop Date Active potassium chloride ER 20 mEq tablet,extended release(part/cryst) RxNorm: 1363439 2 TABS (40MEQ) ORALLY TWICE DAILY (DX: HYPOKALEMIA) 01/27/20 24 025 Inactive cephalexin 500 mg capsule RxNorm: 492008 Take 1 Capsule(s) Oral QID 12/17/19 24 024 Inactive cephalexin 500 mg capsule RxNorm: 434183 Take 1 Capsule(s) Oral QID 12/17/19 24 024 Inactive acetaminophen 500 mg tablet RxNorm: 520019 (MAX APAP:4GM/24HR) Take 1 Tablet(s) Oral TID as needed for pain 12/10/19 24 024 Inactive torsemide 20 mg tablet RxNorm: 961583 Take 1 Tablet(s) Oral QD 10/26/19 24 025 Inactive potassium chloride ER 20 mEq tablet,extended release RxNorm: 253078 Take 2 Tablet(s) Oral BID 10/26/19 24 Inactive torsemide 20 mg tablet RxNorm: 993280 Take 1 Tablet(s) Oral QD 10/26/19 24 Inactive potassium chloride ER 20 mEq tablet,extended release RxNorm: 666465 Take 2 Tablet(s) Oral BID 10/26/19 24 024 Inactive Artificial Tears (PF) 0.1 %-0.3 % drops in a dropperette RxNorm: 903042 Apply 1-2 Drop(s) Both eyes BID as needed 09/28/19 24 Inactive erythromycin 5 mg/gram (0.5 %) eye ointment RxNorm: 148854 Apply 1 Application Both eyes QHS every night at bedtime Instill ~1 cm ribbon into affected eye 09/28/19 24 024 Inactive Artificial Tears (PF) 0.1 %-0.3 % drops in a dropperette RxNorm: 208139 Apply 1-2 Drop(s) Both eyes BID as needed 09/28/19 24 024 Inactive erythromycin 5 mg/gram (0.5 %) eye ointment RxNorm: 372823 Apply 1 Application Both eyes QHS every night at bedtime Instill ~1 cm ribbon into affected eye 09/28/19 24 Inactive acetaminophen 500 mg tablet RxNorm: 851621 (MAX APAP:4GM/24HR) Take 1 Tablet(s) Oral TID as needed for pain 09/24/19 24 Inactive carvedilol 25 mg tablet RxNorm: 265497 Take 1 Tablet(s) Oral QD 09/08/19 24 No Stop Date Active pregabalin 100 mg capsule RxNorm: 036342 Take 1 Capsule(s) Oral QAM every morning 09/07/19 24 024 Inactive ezetimibe 10 mg tablet RxNorm: 369400 Take 1 Tablet(s) Oral QD 07/13/19 24 025 Inactive bisacodyl 10 mg rectal suppository RxNorm: 777445 Insert 1 Suppository Rectal QD as needed 07/13/19 24 No Stop Date Active polyethylene glycol 3350 17 gram/dose oral powder RxNorm: 147315 Take 17 Gram(s) Oral BID as needed mix in 4-8ox water 07/13/19 24 025 Inactive ketoconazole 2 % shampoo RxNorm: 624133 Apply 1 Application Topical UD as directed 07/13/19 No Stop Date Active Ozempic 1 mg/dose (4 mg/3 mL) subcutaneous pen injector RxNorm: 8354548 Inject 1 Milligram(s) Subcutaneous QW once a week 07/13/19 No Stop Date Active Guaifenesin AC 10 mg-100 mg/5 mL oral liquid RxNorm: 185823 Take 10 Milliliter(s) Oral Q4H every four hours as needed 07/13/19 No Stop Date Active ammonium lactate 12 % topical cream RxNorm: 967342 Apply 1 Application Topical BID 07/13/19 24 025 Inactive hydrocortisone 2.5 % topical cream RxNorm: 927560 Apply 1 Application Topical BID as needed 07/13/19 No Stop Date Active rosuvastatin 20 mg sprinkle capsule RxNorm: 0563829 Take 1 Capsule(s) Oral QD 07/13/19 24 025 Inactive rosuvastatin 40 mg tablet RxNorm: 314816 Take 1 Tablet(s) Oral QPM every evening 07/13/19 24 024 Inactive aripiprazole 15 mg tablet RxNorm: 772462 Take 1/2 Tablet(s) Oral QD 07/13/19 24 024 Inactive isosorbide mononitrate ER 60 mg tablet,extended release 24 hr RxNorm: 934932 Take 1 Tablet(s) Oral QD 07/13/19 24 024 Inactive Vascepa 1 gram capsule RxNorm: 7836199 Take 2 Capsule(s) Oral BID 07/13/19 24 024 Inactive venlafaxine ER 75 mg capsule,extended release 24 hr RxNorm: 636385 Take 3 Capsule(s) Oral QD 07/13/19 24 024 Inactive Basagldestin Enrique U-100 Insulin 100 unit/mL (3 mL) subcutaneous RxNorm: 6401673 Inject 30U SubQ twice daily 07/07/19 24 024 Inactive Please dispense one month supply. Radha Enrique U-100 Insulin 100 unit/mL (3 mL) subcutaneous RxNorm: 3434450 Inject 30U SubQ twice daily 07/07/19 24 024 Inactive Please dispense one month supply. pregabalin 150 mg capsule RxNorm: 503099 Take 1 Capsule(s) Oral QHS every night at bedtime 07/05/19 24 024 Inactive pregabalin 150 mg capsule RxNorm: 638354 Take 1 Capsule(s) Oral QHS every night at bedtime 07/05/19 24 024 Inactive polyethylene glycol 3350 17 gram/dose oral powder RxNorm: 672957 Take 1 Packet Oral QD as needed (1 packet = 17g) mix with 4-8oz of liquid 06/15/19 24 024 Inactive bisacodyl 10 mg rectal suppository RxNorm: 051583 Insert one suppository per rectum once daily as needed for constipation 06/15/19 24 024 Inactive bisacodyl 10 mg rectal suppository RxNorm: 078334 Insert one suppository per rectum once daily as needed for constipation 06/15/19 24 024 Inactive pregabalin 100 mg capsule RxNorm: 498236 Take 1 Capsule(s) Oral QAM every morning 04/27/20 23 024 Inactive Levemir FlexPen 100 unit/mL (3 mL) solution subcutaneous insulin pen RxNorm: 180678 Inject 30 Unit(s) Subcutaneous BID 04/27/20 23 024 Inactive rosuvastatin 40 mg tablet RxNorm: 593926 Take 1 Tablet(s) Oral QPM every evening 04/16/20 23 024 Inactive D/C rosuvastatin 20mg venlafaxine ER 75 mg capsule,extended release 24 hr RxNorm: 645916 Take 3 Capsule(s) Oral QD 04/14/20 23 023 Inactive pregabalin 100 mg capsule RxNorm: 782010 Take 1 Capsule(s) Oral QAM every morning [...] strip clotrimazole 1 % topical cream RxNorm: 712130 Take apply topically to abdominal folds twice daily for 14 days 03/12/20 23 024 Inactive Ozempic 1 mg/dose (4 mg/3 mL) subcutaneous pen injector RxNorm: 6819365 Inject 1 Milligram(s) Subcutaneous QW once a week 03/11/20 023 Inactive rosuvastatin 20 mg tablet RxNorm: 228728 Take 1 Tablet(s) Oral QD 02/26/20 23 023 Inactive d/c pravastatin 80mg Ozempic 1 mg/dose (4 mg/3 mL) subcutaneous pen injector RxNorm: 4785656 Inject 1 Milligram(s) Subcutaneous QW once a week 02/20/20 23 023 Inactive pregabalin 150 mg capsule RxNorm: 417351 Take 1 Capsule(s) Oral HS at bed time 02/19/20 23 023 Inactive pregabalin 100 mg capsule RxNorm: 622184 Take 1 Capsule(s) Oral QAM every morning 02/18/20 23 023 Inactive venlafaxine ER 75 mg capsule,extended release 24 hr RxNorm: 341286 Take 3 Capsule(s) Oral QD 02/04/20 23 023 Inactive FreeStyle Chema 2 Sensor kit RxNorm: use as directed 02/04/20 23 023 Inactive FreeStyle Chema 2 Sensor kit RxNorm: use as directed 02/04/20 23 024 Inactive fluconazole 150 mg tablet RxNorm: 395728 Take 1 Tablet(s) Oral on day 3 and on day 6 02/03/20 23 024 Inactive venlafaxine ER 150 mg capsule,extended release 24 hr RxNorm: 473879 Take 1 Capsule(s) Oral QD 02/03/20 23 023 Inactive chlorthalidone 25 mg tablet RxNorm: 429002 Take 1 Tablet(s) Oral QAM every morning 02/03/20 23 024 Inactive acetaminophen 500 mg tablet RxNorm: 079406 1 TABLET ORALLY 3 TIMES DAILY (MAX APAP:4GM/24HR) 12/15/19 23 023 Inactive clotrimazole 1 % topical cream RxNorm: 996041 apply 1g topically to top of feet and in between toes BID 12/09/19 23 025 Inactive potassium chloride ER 20 mEq tablet,extended release RxNorm: 165682 Take 1 Tablet(s) Oral BID 12/09/19 024 Inactive d/c 20mEq once daily (sent from hospital) nystatin 100,000 unit/gram topical powder RxNorm: 248116 APPLY TO AFFECTED AREAS TOPICALLY 2 TIMES DAILY 11/21/19 23 023 Inactive Nystop 100,000 unit/gram topical powder RxNorm: 743345 Apply to abd folds, under breasts and L side of groin Topical BID x 14 days, then BID PRN 11/20/19 023 Inactive dx: yeast dermatitis [place] Ultra Strength 4 %-30 %-10 % topical cream RxNorm: 880860 Apply 1 Gram(s) Topical QID PRN to feet and legs for neuropathic pain 11/11/19 024 Inactive clotrimazole 1 % topical cream RxNorm: 726909 Apply 1/2 Gram(s) Topical BID Apply to affected areas of groin, periarea, and abdominal topically 2 times daily 11/10/19 23 023 Inactive hydrocortisone 2.5 % topical cream RxNorm: 378518 Apply 1/2 Gram(s) Topical BID as needed 11/10/19 024 Inactive Levemir FlexPen 100 unit/mL (3 mL) solution subcutaneous insulin pen RxNorm: 303831 Inject 30 Unit(s) Subcutaneous BID 10/07/19 23 023 Inactive Humulin R U-500 (Concentrated) Insulin 500 unit/mL subcutaneous soln RxNorm: 639124 Inject 100 Unit(s) Subcutaneous TID 10/07/19 024 Inactive Ozempic 0.25 mg or 0.5 mg (2 mg/3 mL) subcutaneous pen injector RxNorm: 9542343 Inject 1/2 Milligram(s) Subcutaneous QW once a week 10/07/19 024 Inactive aripiprazole 15 mg tablet RxNorm: 792415 1/2 TAB (7.5MG) ORALLY DAILY (DX:MAJOR DEPRESSIVE DISORDER) 09/23/19 023 Inactive Accu-Chek Guide test strips RxNorm: Use 1 Test Strip QID 09/15/19 023 Inactive ok to substitute with any covered alternative test strip Lancets,Thin 28 gauge RxNorm: Use 1 as directed QID 09/15/19 023 Inactive torsemide 20 mg tablet RxNorm: 107136 Take 1 Tablet(s) Oral BID 09/09/19 024 Inactive d/c once daily dosing carvedilol 25 mg tablet RxNorm: 722526 Take 1 Tablet(s) Oral QD 08/25/19 024 Inactive pregabalin 150 mg capsule RxNorm: 212156 1 Capsule(s) Oral HS at bed time 08/18/19 023 Inactive pregabalin 100 mg capsule RxNorm: 200740 1 Capsule(s) Oral QAM every morning 08/18/19 023 Inactive carvedilol 25 mg tablet RxNorm: 398020 1 Tablet(s) Oral QD 07/28/19 023 Inactive lisinopril 20 mg tablet RxNorm: 819389 Give 1 Tablet(s) Oral QD 07/28/19 23 023 Inactive Lyrica 150 mg capsule RxNorm: 985365 Take 1 Capsule(s) Oral QHS every night at bedtime 07/19/19 023 Inactive d/c 100mg dose Diflucan 150 mg tablet RxNorm: 385195 Take 1 Tablet(s) Oral QD repeat on day 3 and 6 07/19/19 23 023 Inactive pregabalin 100 mg capsule RxNorm: 415727 Take 1 Capsule(s) Oral QAM every morning 07/19/19 23 023 Inactive gatifloxacin 0.5 % eye drops RxNorm: 478855 Instill 1 Drop(s) as directed TID Instill 1 drop in to affected eye(s) starting 1 day prior to surgery and continue until gone (do not exceed 4 weeks). 07/13/19 23 023 Inactive carvedilol 25 mg tablet RxNorm: 119035 2 Tablet(s) Oral BID 07/13/19 23 023 Inactive Humulin R Regular U-100 Insulin 100 unit/mL injection solution RxNorm: 069747 85 Unit(s) Injection TID 07/13/19 23 023 Inactive ketorolac 0.5 % eye drops RxNorm: 323547 Instill 1 Drop(s) as directed QID Instill 1 drop into affected eye(s) 4 times daily starting 1 day prior to surgery and continue until gone (do not exceed 4 weeks). 07/13/19 023 Inactive Diflucan 150 mg tablet RxNorm: 472048 Take 1 Tablet(s) Oral QD repeat on day 3 and 6 06/30/19 23 023 Inactive Accu-Chek Guide test strips RxNorm: Use 1 Test Strip QID Use 1 test strip to monitor blood glucose 4 times daily and as needed. Dx:E11.42. 06/23/19 23 023 Inactive ok to substitute with any covered alternative test strip dextromethorphan-gu aifenesin 10 mg-100 mg/5 mL oral liquid RxNorm: 178233 Take 10 Milliliter(s) Oral every 4 hours as needed for cough 06/19/19 23 023 Inactive dextromethorphan-gu aifenesin 10 mg-100 mg/5 mL oral liquid RxNorm: 320782 Take 10 Milliliter(s) Oral every 4 hours as needed for cough 06/19/19 23 023 Inactive Lyrica 150 mg capsule RxNorm: 679405 Take 1 Capsule(s) Oral QHS every night at bedtime 06/18/19 23 023 Inactive d/c 100mg dose aripiprazole 15 mg tablet RxNorm: 638845 1/2 TAB (7.5MG) ORALLY DAILY (DX:MAJOR DEPRESSIVE DISORDER) 06/05/19 023 Inactive pregabalin 100 mg capsule RxNorm: 840354 1 Capsule(s) Oral QAM every morning 06/02/19 23 023 Inactive Banophen 50 mg capsule RxNorm: 6863282 Take 1 Capsule(s) Oral Q6H every 6 hours as needed 05/19/19 No Stop Date Active Novolog Flexpen U-100 Insulin aspart 100 unit/mL (3 mL) subcutaneous RxNorm: 4878363 Inject 10 Unit(s) Subcutaneous QHS every night at bedtime with nighttime snack 04/08/20 022 Inactive Novolog Flexpen U-100 Insulin aspart 100 unit/mL (3 mL) subcutaneous RxNorm: 1041403 Inject 42 Unit(s) Subcutaneous TID in addition to sliding scale 04/08/20 022 Inactive d/c 36u albuterol sulfate HFA 90 mcg/actuation aerosol inhaler RxNorm: 8089770 Take 2 Puff(s) Inhalation Q4H every four hours as needed as needed for SOB, cough, or wheezing 04/07/20 030 Active Banophen 50 mg capsule RxNorm: 3768912 Take 1 Capsule(s) Oral Q6H every 6 hours as needed 04/06/20 023 Inactive diphenhydramine 50 mg tablet RxNorm: 8212960 Take 1 Tablet(s) Oral Q6H every 6 hours as needed 04/06/20 22 022 Inactive diphenhydramine 50 mg tablet RxNorm: 0006900 1 Tablet(s) Oral Q6H every 6 hours as needed 04/06/20 22 022 Inactive Abilify 15 mg tablet RxNorm: 990331 1/2 Tablet(s) Oral QD 03/10/20 22 023 Inactive Shingrix (PF) 50 mcg/0.5 mL intramuscular suspension, kit RxNorm: 4491338 Administer 1/2 Milliliter(s) Intramuscular QD one time shingrix step 2 ( step 1 given 11/04/21) WITH needle - Nursing please administer upon arrival and once administered post a bridge message with date of administration, nut process helper, expiration date, and lot# so we can update [facility] 02/18/20 22 022 Inactive dispense with needle Shingrix (PF) 50 mcg/0.5 mL intramuscular suspension, kit RxNorm: 7125097 Administer 1/2 Milliliter(s) Intramuscular QD one time shingrix step 2 ( step 1 given 11/04/21) WITH needle - Nursing please administer upon arrival and once administered post a bridge message with date of administration, nut process helper, expiration date, and lot# so we can update [facility] 02/18/20 22 022 Inactive dispense with needle polyethylene glycol 3350 17 gram/dose oral powder RxNorm: 974466 Take 17=1 capful Gram(s) Oral QD mix with 4-8oz of liquid 01/08/20 22 025 Inactive take this in addition to BID prn order Lyrica 100 mg capsule RxNorm: 824540 Take 1 Capsule(s) Oral QAM every morning 01/08/20 22 022 Inactive d/c 50mg dose acetaminophen 500 mg tablet RxNorm: 032885 Take 1 Tablet(s) Oral TID 01/08/20 22 022 Inactive d/c PRN order Lyrica 150 mg capsule RxNorm: 410631 Take 1 Capsule(s) Oral QHS every night at bedtime 01/08/20 22 023 Inactive d/c 100mg dose Abilify 5 mg tablet RxNorm: 147089 Take 1 Tablet(s) Oral QD take 1 tab po QD #30 refill 5 dx: MDD 12/12/19 22 022 Inactive Abilify 5 mg tablet RxNorm: 114600 Take 1 Tablet(s) Oral QD take 1 tab po QD #30 refill 5 dx: MDD 12/12/19 22 022 Inactive Novolog Flexpen U-100 Insulin aspart 100 unit/mL (3 mL) subcutaneous RxNorm: 5992274 Inject 42 Unit(s) Subcutaneous TID in addition to sliding scale 12/10/19 22 022 Inactive d/c 36u chlorthalidone 25 mg tablet RxNorm: 315273 Take 1 Tablet(s) Oral QAM every morning 12/10/19 22 023 Inactive pregabalin 50 mg capsule RxNorm: 033265 Take 1 Capsule(s) Oral QAM every morning 11/12/19 22 022 Inactive tetanus-diphtheria toxoids-Td 2 Lf unit-2 Lf unit/0.5 mL IM suspension RxNorm: 139 Take 0.5 Miscellaneous Intramuscular 11/12/19 22 022 Inactive need tdap - nursing to administer upon arrival pregabalin 50 mg capsule RxNorm: 608842 Take 1 Capsule(s) Oral QAM every morning 10/16/19 22 022 Inactive pregabalin 50 mg capsule RxNorm: 713537 Take 1 Capsule(s) Oral QAM every morning 10/16/19 22 022 Inactive pregabalin 50 mg capsule RxNorm: 519207 1 Capsule(s) Oral QAM every morning 10/15/19 22 022 Inactive Shingrix (PF) 50 mcg/0.5 mL intramuscular suspension, kit RxNorm: 0727217 Administer 1/2 Milliliter(s) Intramuscular one time Nursing please administer upon arrival and once administered post a bridge message with date of administration, nut process helper, expiration date, and lot# so we can update [facility]. 10/09/19 22 022 Inactive shingrix step 1 Shingrix (PF) 50 mcg/0.5 mL intramuscular suspension, kit RxNorm: 3483003 Administer 1/2 Milliliter(s) Intramuscular one time Nursing please administer upon arrival and once administered post a bridge message with date of administration, nut process helper, expiration date, and lot# so we [...] aspart 100 unit/mL (3 mL) subcutaneous RxNorm: 3843196 Inject 10 Unit(s) Subcutaneous QHS every night at bedtime with nighttime snack 10/08/19 22 022 Inactive Shingrix (PF) 50 mcg/0.5 mL intramuscular suspension, kit RxNorm: 0133115 ADMINISTER 2-DOSE SERIES PER CDC GUIDELINES 10/08/19 22 Active Shingrix (PF) 50 mcg/0.5 mL intramuscular suspension, kit RxNorm: 5393024 ADMINISTER 2-DOSE SERIES PER CDC GUIDELINES 10/08/19 22 Inactive Novolog Flexpen U-100 Insulin aspart 100 unit/mL (3 mL) subcutaneous RxNorm: 5797746 Inject 36 Unit(s) Subcutaneous TID in addition to sliding scale 10/08/19 Inactive cholecalciferol (vitamin D3) 1,250 mcg (50,000 unit) capsule RxNorm: 172297 Take 1 Capsule(s) Oral QW once a week 10/08/19 024 Inactive Novofine Autocover 30 gauge x 1/3 needle RxNorm: Use 1 Miscellaneous UD as directed Use 1 needle as directed to administer insulin 5 times a day Dx:E11.42. 10/03/19 22 022 Inactive ok to substitute with any covered alternative pen needle benzoyl peroxide 10 % topical cleanser RxNorm: 041784 Apply 1 Application Topical QD apply to face, wash rinse and dry once daily (may change to QOD if drying) 08/19/19 22 022 Inactive (%covered by insurance) #60ml refill 11 dx: acne benzoyl peroxide 10 % topical cleanser RxNorm: 539335 Apply 1 Application Topical QD apply to face, wash rinse and dry once daily (may change to QOD if drying) 08/19/19 22 022 Inactive (%covered by insurance) #60ml refill 11 dx: acne benzoyl peroxide 10 % topical cleanser RxNorm: 850260 Apply 1 Application Topical QD apply to face, wash rinse and dry once daily (may change to QOD if drying) 08/19/19 22 022 Inactive (%covered by insurance) #60ml refill 11 dx: acne Lyrica 50 mg capsule RxNorm: 483866 Take 1 Capsule(s) Oral QAM every morning Take 1 capsule by mouth once daily 08/19/19 22 022 Inactive benzoyl peroxide 10 % topical cleanser RxNorm: 798532 Apply 1 Application Topical QD apply to face, wash rinse and dry once daily (may change to QOD if drying) 08/19/19 22 022 Inactive (%covered by insurance) #60ml refill 11 dx: acne Lyrica 100 mg capsule RxNorm: 506653 Take 1 Capsule(s) Oral QHS every night at bedtime Take 1 capsule by mouth once daily at bedtime 08/19/19 22 022 Inactive Lyrica 100 mg capsule RxNorm: 169470 Take 1 Capsule(s) Oral QHS every night at bedtime Take 1 capsule by mouth once daily at bedtime 08/16/19 22 022 Inactive Lyrica 50 mg capsule RxNorm: 042517 Take 1 Capsule(s) Oral QAM every morning Take 1 capsule by mouth once daily 08/16/19 22 022 Inactive Levemir FlexTouch U-100 Insulin 100 unit/mL (3 mL) subcutaneous pen RxNorm: 296525 Inject 86 Unit(s) Subcutaneous BID 08/05/19 22 022 Inactive d/c 83units BID Lyrica 100 mg capsule RxNorm: 533213 Take 1 Capsule(s) Oral QHS every night at bedtime Take 1 capsule by mouth once daily at bedtime 07/14/19 22 022 Inactive Lyrica 50 mg capsule RxNorm: 557560 Take 1 Capsule(s) Oral QAM every morning Take 1 capsule by mouth once daily 07/14/19 22 022 Inactive Levemir FlexTouch U-100 Insulin 100 unit/mL (3 mL) subcutaneous pen RxNorm: 337359 Inject 83 Unit(s) Subcutaneous BID 07/08/19 22 [...] test strip hydralazine 50 mg tablet RxNorm: 112748 Take 1 Tablet(s) Oral QID 05/05/20 21 022 Inactive venlafaxine ER 225 mg tablet,extended release 24 hr RxNorm: 640461 Take 1 Tablet(s) Oral QD 05/05/20 21 021 Inactive venlafaxine ER 225 mg tablet,extended release 24 hr RxNorm: 281285 Take 1 Tablet(s) Oral QD 05/05/20 21 022 Inactive isosorbide mononitrate ER 30 mg tablet,extended release 24 hr RxNorm: 508937 Take 1 Tablet(s) Oral QD 05/05/20 024 Inactive hydralazine 50 mg tablet RxNorm: 055314 Take 1 Tablet(s) Oral QID 05/05/20 21 021 Inactive aspirin 81 mg tablet,delayed release RxNorm: 511640 Take 1 Tablet(s) Oral QD 03/31/20 022 Inactive Vitamin D2 1,250 mcg (50,000 unit) capsule RxNorm: 1295269 Take 1 Capsule(s) Oral QW once a week x 12 weeks 03/31/20 022 Inactive Vitamin D2 1,250 mcg (50,000 unit) capsule RxNorm: 6369277 Take 1 Capsule(s) Oral QW once a week 03/31/20 021 Inactive Zetia 10 mg tablet RxNorm: 003613 Take 1 Tablet(s) Oral QD 03/31/20 024 Inactive Zetia 10 mg tablet RxNorm: 255740 Take 1 Tablet(s) Oral QD 03/31/20 021 Inactive hydralazine 25 mg tablet RxNorm: 965696 Take 1 Tablet(s) Oral QID 03/31/20 021 Inactive hydralazine 25 mg tablet RxNorm: 994476 Take 1 Tablet(s) Oral QID 03/31/20 021 Inactive hydralazine 10 mg tablet RxNorm: 355177 Take 1 Tablet(s) Oral QID 03/03/20 021 Inactive cephalexin 500 mg tablet RxNorm: 523758 Take 1 Tablet(s) Oral QID 02/27/20 021 Inactive cephalexin 500 mg tablet RxNorm: 426272 Take 1 Tablet(s) Oral QID 02/27/20 021 Inactive lisinopril 40 mg tablet RxNorm: 846129 Take 1 Tablet(s) Oral QD 02/11/20 21 023 Inactive Eliquis 5 mg tablet RxNorm: 3814174 Take 1 Tablet(s) Oral BID 01/05/20 21 025 Inactive Eliquis 5 mg tablet RxNorm: 3271410 Take 2 Tablet(s) Oral QD 01/01/20 21 021 Inactive Lyrica 50 mg capsule RxNorm: 353571 Take 1 Capsule(s) Oral QAM every morning 12/24/19 21 021 Inactive Lyrica 100 mg capsule RxNorm: 730149 Take 1 Capsule(s) Oral QHS every night at bedtime 12/24/19 21 021 Inactive clotrimazole 1 % topical cream RxNorm: 232086 Apply to right foot and toes Topical BID 12/04/19 21 023 Inactive metoprolol succinate ER 200 mg tablet,extended release 24 hr RxNorm: 265677 Take 1 Tablet(s) Oral QD 12/04/19 21 023 Inactive ciprofloxacin 500 mg tablet RxNorm: 245290 Take 1 Tablet(s) Oral QD 11/30/19 21 021 Inactive DX ofloxacin otic drops Accu-Chek Guide test strips RxNorm: USE 1 TO CHECK GLUCOSE 4 TIMES DAILY AND NEEDED 11/15/19 21 023 Inactive Blood Glucose Test strips RxNorm: Use 1 Test Strip QID at PRN 11/05/19 21 023 Inactive E11.42 lisinopril 30 mg tablet RxNorm: 728761 Take 1 Tablet(s) Oral QD 10/30/19 021 Inactive lisinopril 20 mg tablet RxNorm: 992055 Take 1 Tablet(s) Oral QD 10/23/19 21 021 Inactive lisinopril 20 mg tablet RxNorm: 067947 Take 1 Tablet(s) Oral QD 10/23/19 21 021 Inactive lisinopril 10 mg tablet RxNorm: 358642 Take 1 Tablet(s) Oral QD 10/02/19 21 021 Inactive icosapent ethyl 1 gram capsule RxNorm: 3006038 Take 2 Capsule(s) (2 gm) Oral BID with meals 09/12/19 21 024 Inactive Okay to dispense one 2gm tab if you have that available. icosapent ethyl 1 gram capsule RxNorm: 7991708 Take 2 Capsule(s) Oral BID 09/12/19 21 021 Inactive Okay to dispense one 2gm tab if you have that available. amlodipine 10 mg tablet RxNorm: 741646 Take 1 Tablet(s) Oral QD 09/04/19 21 021 Inactive aspirin 81 mg tablet,delayed release RxNorm: 661026 Take 1 Tablet(s) Oral QD 09/04/19 021 Inactive Levemir FlexTouch U-100 Insulin 100 unit/mL (3 mL) subcutaneous pen RxNorm: 493763 Inject 150 Unit(s) Subcutaneous BID 09/04/19 21 022 Inactive venlafaxine ER 150 mg tablet,extended release 24 hr RxNorm: 131534 Take 1 Tablet(s) Oral QD 09/04/19 021 Inactive clotrimazole-betame thasone 1 %-0.05 % topical cream RxNorm: 642422 Apply to rash on red area on left abdomen/chest Topical BID 08/10/19 21 021 Inactive amlodipine 5 mg tablet RxNorm: 897892 Take 1 Tablet(s) Oral QD 07/31/19 021 Inactive cephalexin 500 mg tablet RxNorm: 989391 Take 1 Tablet(s) Oral BID BID - Twice Daily 07/31/19 21 021 Inactive Start 08/01/20 pantoprazole 40 mg tablet,delayed release RxNorm: 780316 Take 1 Tablet(s) Oral QAM every morning 07/08/19 025 Inactive senna 8.6 mg tablet RxNorm: 351797 Take 1 Tablet(s) Oral QD 07/08/19 025 Inactive carbamazepine 200 mg tablet RxNorm: 932351 Take 1 Tablet(s) Oral BID 07/08/19 21 025 Inactive clopidogrel 75 mg tablet RxNorm: 128678 Take 1 Tablet(s) Oral QD 07/08/19 021 Inactive Blood Glucose Test strips RxNorm: Use 1 Test Strip QID at PRN 07/08/19 21 021 Inactive E11.42 Novolog Flexpen U-100 Insulin aspart 100 unit/mL (3 mL) subcutaneous RxNorm: 3453622 Administer per sliding scale Milliliter(s) Subcutaneous TID 151-200: 10 u; 201-250: 20 u; 251-300: 30 u; 301-350: 40 u; 351-400: 50 u. 07/08/19 022 Inactive lisinopril 5 mg tablet RxNorm: 728807 Take 1 Tablet(s) Oral QD 07/08/19 21 021 Inactive Novolog Flexpen U-100 Insulin aspart 100 unit/mL (3 mL) subcutaneous RxNorm: 0590453 Inject 85 Unit(s) Subcutaneous TID 07/08/19 022 Inactive pravastatin 80 mg tablet RxNorm: 617392 Take 1 Tablet(s) Oral QHS every night at bedtime 07/08/19 023 Inactive clotrimazole 1 % topical cream RxNorm: 502328 Apply to bilateral groin areas Topical BID 07/08/19 022 Inactive metoprolol succinate ER 200 mg tablet,extended release 24 hr RxNorm: 442040 Take 1 Tablet(s) Oral QD 07/08/19 021 Inactive Vitamin D3 25 mcg (1,000 unit) tablet RxNorm: 342904 Take 1 Tablet(s) Oral QD 07/08/19 021 Inactive isosorbide dinitrate 30 mg tablet RxNorm: 114157 Take 1 Tablet(s) Oral QD 07/08/19 021 Inactive Levemir FlexTouch U-100 Insulin 100 unit/mL (3 mL) subcutaneous pen RxNorm: 093809 Inject 140 Unit(s) Subcutaneous BID 07/08/19 021 Inactive torsemide 20 mg tablet RxNorm: 162542 Take 1 Tablet(s) Oral QD 07/08/19 023 Inactive venlafaxine 75 mg tablet RxNorm: 507913 Take 1 Tablet(s) Oral QD 07/08/19 021 Inactive acetaminophen 500 mg tablet RxNorm: 432463 Take 1 Tablet(s) Oral TID as needed for headache 06/18/19 021 Inactive acetaminophen 500 mg tablet RxNorm: 746410 Take 1 Tablet(s) Oral TID as needed for headache 06/18/19 021 Inactive Lyrica 100 mg capsule RxNorm: 888419 Take 1 Capsule(s) Oral QHS every night at bedtime 06/11/19 21 021 Inactive Lyrica 50 mg capsule RxNorm: 793937 Take 1 Capsule(s) Oral QAM every morning 06/10/19 021 Inactive hydrocortisone 2.5 % topical cream RxNorm: 900737 Apply to bilateral groin creases Topical BID 05/15/20 20 021 Inactive clotrimazole 1 % topical cream RxNorm: 584774 Apply to bilateral groin areas Topical BID 05/15/20 20 021 Inactive Lyrica 50 mg capsule RxNorm: 500929 Take 1 Capsule(s) Oral QAM every morning 05/14/20 20 020 Inactive Lyrica 100 mg capsule RxNorm: 956327 Take 1 Capsule(s) Oral QHS every night [...] Inactive Nystop 100,000 unit/gram topical powder RxNorm: 187925 Apply to abd folds, under breasts and L side of groin Topical BID x 14 days, then BID PRN 04/08/20 20 020 Inactive dx: yeast dermatitis Lyrica 100 mg capsule RxNorm: 801277 Take 1 Capsule(s) Oral QHS every night at bedtime 03/13/20 20 Inactive Lyrica 50 mg capsule RxNorm: 603038 Take 1 Capsule(s) Oral QAM every morning 03/13/20 20 Inactive ketoconazole 2 % shampoo RxNorm: 390115 Apply Topical two times a week with showers 03/11/20 20 Inactive cholecalciferol (vitamin D3) 50 mcg (2,000 unit) tablet RxNorm: 663410 Take 1 Tablet(s) Oral QD 03/11/20 Inactive Zetia 10 mg tablet RxNorm: 617408 Take 1 Tablet(s) Oral QD 03/07/20 20 021 Inactive Zetia 10 mg tablet RxNorm: 338867 Take 1 Tablet(s) Oral QD 03/07/20 20 Inactive Lyrica 50 mg capsule RxNorm: 664721 Take 1 Capsule(s) Oral QAM every morning 02/15/20 20 Inactive Lyrica 100 mg capsule RxNorm: 280806 Take 1 Capsule(s) Oral QHS every night at bedtime 02/15/20 20 Inactive Lyrica 100 mg capsule RxNorm: 788679 Take 1 Capsule(s) Oral QHS every night at bedtime 02/15/20 20 Inactive Lyrica 50 mg capsule RxNorm: 554622 Take 1 Capsule(s) Oral QAM every morning 02/15/20 20 Inactive metoprolol succinate ER 200 mg tablet,extended release 24 hr RxNorm: 482840 Take 1 Tablet(s) Oral QD 08/12/19 025 Inactive loperamide 2 mg capsule RxNorm: 899844 Take 1 Capsule(s) Oral QID as needed 09/06/19 025 Inactive hydralazine 50 mg tablet RxNorm: 752889 Take 1 Tablet(s) Oral QID 08/12/19 025 Inactive Soft Touch Lancets RxNorm: miscellaneous 03/04/20 24 025 Inactive venlafaxine ER 75 mg capsule,extended release 24 hr RxNorm: 514889 Take 3 Capsule(s) Oral QD 06/12/19 22 023 Inactive polyethylene glycol 3350 17 gram/dose oral powder RxNorm: 465088 Take 17=1 capful Gram(s) Oral BID as needed mix with 4-8oz of liquid 06/12/19 22 024 Inactive icosapent ethyl 1 gram capsule RxNorm: 5676468 Take 2 Capsule(s) (2 gm) Oral BID with meals 10/07/19 23 023 Inactive Okay to dispense one 2gm tab if you have that available. Levemir FlexTouch U-100 Insulin 100 unit/mL (3 mL) subcutaneous pen RxNorm: 939244 Inject 80 Unit(s) Subcutaneous BID 07/14/19 23 023 Inactive Novolog Flexpen U-100 Insulin aspart 100 unit/mL (3 mL) subcutaneous RxNorm: 8459990 Insert 30 Unit(s) Subcutaneous TID with meals [...] CVX: 115 2008 Procedures Procedure Codes Date HEMOGLOBIN A1C LEVEL >9.0% CPT-4: 3046F 05/08 SYS BP LESS 140 CPT-4: G8752 05/08/2024 CUI BP LESS 90 CPT-4: G8754 05/08/2024 Vital Signs Date Vital 05/08/2024 Blood Pressure 1: 130/78 Code: 8480-6 Heart Rate 1: 72 bpm Code: 8867-4 Respiratory Rate: 16 bpm SpO2: 96% Temperature: 36.8 (C) / 98.2 (F) Functional Status Functional / Cognitive Codes Status [...] Performer Location Location Address Codes Cristiano e ([id number]) Home or Residence Vi sit Est Pt - Moderate Level, 40 mins Diagnosis: Hyperlipidemia associated with type 2 diabetes mellitus[ICD10: E11.69] Diagnosis: Hypertensive heart disease without heart failure[ICD10: I11.9] Diagnosis: Hypokalemia[ICD10: E87.6] Diagnosis: Stage 2 chronic 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[ICD10: E11.22] Diagnosis: Type 2 diabetes mellitus with diabetic polyneuropathy, with long-term current use of insulin[ICD10: E11.42] Diagnosis: Hemorrhoids[ICD10: K64.9] Diagnosis: Advance care planning[ICD10: Z71.89]Harrison Steawrt Scribner on [id number] [place] [id number]-0: [id number]/ Plan of Care Planned Activity Notes Codes Status Date Referral: [facility] [address] [id number] [place]ReferralAppointment Risicdmlb04/06/2025Referral: [facility]/Endocrinology WPtel: [address] [facility] [address] [id number] USReferralNo Records Uulpdleb25/24/2025ppointment: Harrison Munson WPtel: [address] [facility] 300 [id number] USAWV02/08/2024ppointment: Harrison Munson WPtel: [address] [facility] 300 [id number] USF/U001/11/2024ppointment: Sandra Clark WPtel: [address] [place] [address] [id number] [facility] Follow Up12/09/2022ppointment: Tapan Shirley WPtel: [address] [facility] 300 [id number] [facility]10/26/2022Referral: [facility] WPtel: [address] , [address] [id number] USReferralRecords Jdhkzmka54/08/2023ppointment: Tapan Shirley WPtel: [address] [facility] 300 [id number] USF/U008/11/2022ppointment: Tapan Shirley WPtel: [address] [facility] 300 [id number] USF/U007/14/2022ppointment: Tapan Shirley WPtel: [address] [facility] 300 [id number] USF/U09/27/2022Referral: [facility] WPtel: [address] [facility] [address] [id number] LRSnnpzizlZmtknlxig72/12/2022Referral: General CardiologyReferralCompleted 1Referral: General PsychologistReferralClosedReferral: General PsychiatristReferralPatient/Family Scheduling AppointmentReferral: General Physical MedicineReferralFacility Scheduling Appointment Instructions Comment Date Leonid is a Male being seen living at [facility]. Initial BPS visit 01/2020. PMHx including DMII, CAD w/ 5 stents, Depression, Seizure Disorder and CKD stage 3. He moved into [facility] in 12/2019 but after a hospitalization 05/2021 he [facility] to have closer nursing attention. Sister Jyotsna involved in his care cell# [phone] Guardian: Giulia (tapan met in person 09/01/21), [...] appointment 05.26.2024 with Jessa Webster MD at [facility]. Start Pioglitazone 15 mg QD. Stop Basaglar insulin. Increase Ozempic 2 mg once wkly. Continue Humalin R U-500 100 units with meals TID. FOLLOW UP 2 MONTHS. If BG >400 add 50 units to next scheduled dose of Humalin R U 500 insulin 06/12/2024 Hyperlipidemia associated wi th type 2 diabetes mellitus Will order Lipid panel today.? Continue current medication regimen.?? Stage 2 chronic 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 Will order BMP today.?? Advance Care Planning Nursing going to discuss POLST with guardian and notify PCP if guardian would like to set up a phone call or be present at our next visit to complete the form.?? Hypertensive heart disease without heart failure Will order BMP today.?? BP at goal.?? Continue current medication regimen.?? Hypokalemia Will order BMP today. Continue current medication regimen.?? Type 2 diabetes mellitus with diabetic polyneuropathy, with long-term current use of insulin A1c reviewed from last Endocrinology appointment. (9.4%) Dr. Martines's office has discharged the patient unfortunately. See HPI for details.?? Will place new referral today.?? Continue with current medication regimen from last [facility] and will hopefully be able to establish with new specialist soon.??.05/08/2024
--- OUTSIDE RECORDS SUMMARY | 2024-10-19 18:20 | XMS_ITS | CCD ---
Author Name Cecilio Durham Address [address] [facility] [address] [place] [address] Phone Organization [facility] Phone Care Team Providers Care Marine Insurance Claim Examiner Name Role Phone Harrison Durham Primary Care Provider Leona vailable Unavailable Chronic Care Management Unavaila ble Summary Purpose DataExchange Insurance Providers Payer name Policy type / Coverage type Covered libertarian ID Effective Begin Date Effective End Date Medicare [place] Medicare Part B [id number] Unknown Unknown Medicaid [place] B [id number] Unknown Unknown Family history Sister Brittany Suggs [...] on file 07/11/[address]: [id number] Never smoker 01/16 Sexually Active? Unknown No [...] Unknown Residential 09/03/[address]: 403954098 No Alcohol Consum ption 09/02/2020 Allergies, Adverse Reactions, Alerts Substance Reaction Codes Entered Date Inactivated Date Status * NO KNOWN FOOD ALLERGIES Ntnmfqi2307/13/2023No Inactive DateActiveLISINOPRILRxNorm: 2462584 Inactive DateActiveMetformin ROxYmctssk45 Inactive DateActive* NO KNOWN ENVIRONMENTAL NMEPKNGWFMxhwfys45/27/2024 Inactive DateActive Problems Condition Codes Effective Dates Condition St atus Body mass index [BMI] 60.0-69.9, adult S NOMED CT: 022181301 ICD-10: Z68.44 ICD-9: V85.4405ActiveConstipation by delayed colonic transitICD-10: K59.01 ICD-9: 564.0105ActiveMixed incontinenceSNOMED CT: 21657004 ICD-10: N39.46 ICD-9: 788.3305ActiveType 2 diabetes mellitus [...] planning - to document end of life tesclyxguaxUsrjkvo22ctiveAmputated toe of right footICD-10: S98.131A ICD-9: 895.009ctiveAnnual [...] E55.9 ICD-9: 268.909/ctiveCallus of heelICD-10: L84 ICD-9: 97864/esolvedGout due to renal impairmentICD-10: M10.30 ICD-9: 274.1005esolvedHyperhidrosis [...] tagICD-10: L91.8 ICD-9: 701.904esolvedCoronary artery disease involving absentee-shawnee coronary artery of absentee-shawnee heart, angina presence unspecifiedICD-10: I25.10 ICD-9: 414.0102/4ActiveInappropriate sexual behaviorICD-10: Z72.89 ICD-9: 312.8910/3ActivePre-op evaluationICD-10: Z01.818 ICD-9: V72.8403ctiveSecondary hypertensionICD-10: I15.9 ICD-9: 405.9903ctiveDepressionICD-10: F32.9 ICD-9: 77418/esolvedDVT (deep venous thrombosis)ICD-10: I82.409 ICD-9: 453.4009esolvedEncounter for [...] to other viral communicable diseasesICD-10: Z20.828 ICD-9: V01.7902/5562UomzzglaSagxmstlRbhowjt42/28/2020ActiveDiabetes mellitus Type 3Orolrcu21/28/2020ActiveAnemia in chronic kidney diseaseICD-10: D63.1 02/12/2020ResolvedHyperlipidemia, unspecifiedICD-10: E78.509Resolved Medications Medication Codes Instructions Start Date Stop Date Status Fill Instructions pregabalin 100 mg capsule RxNorm: 776838 1 CAPSULE BY MOUTH EVERY MORNING (DX: NEUROPATHY) 08/23/19 Active FACILITY IS REQUESTING REFILL. PRIOR RX HAS BEEN EXHAUSTED. THANK YOU. pregabalin 150 mg capsule RxNorm: 473225 1 CAPSULE BY MOUTH AT BEDTIME (DX: NEUROPATHY) 08/21/19 Active FACILITY IS REQUESTING A REFILL OF THIS MEDICATION, THANK YOU! senna 8.6 mg tablet RxNorm: 755446 Take 1 Tablet(s) Oral QD as needed for constipation on day 2 of no bowel movement 08/09/19 Inactive Miralax 17 gram/dose oral powder RxNorm: 531548 Administer 17 Gram(s) Oral QD as needed for constipation on day 3 of no bowel movement 08/09/19 Inactive senna 8.6 mg tablet RxNorm: 321392 Take 1 Tablet(s) Oral QD as needed for constipation on day 2 of no bowel movement 08/09/19 025 Inactive Miralax 17 gram/dose oral powder RxNorm: 298661 Administer 17 Gram(s) Oral QD as needed for constipation on day 3 of no bowel movement 08/09/19 025 Inactive pregabalin 100 mg capsule RxNorm: 795498 Take 1 Capsule(s) Oral QAM every morning [...] (Concentrated) Insulin 500 unit/mL subcutaneous soln RxNorm: 995164 Inject 100 Unit(s) Subcutaneous AC before meals Three times daily before meals. 07/24/19 25 025 Inactive ammonium lactate 12 % topical cream RxNorm: 821919 Apply 1 Application Topical BID 07/20/19 25 No Stop Date Active ezetimibe 10 mg tablet RxNorm: 203178 Take 1 Tablet(s) Oral QD 07/18/19 25 No Stop Date Active senna 8.6 mg tablet RxNorm: 238902 Take 1 Tablet(s) Oral QD 07/18/19 25 025 Inactive metoprolol succinate ER 200 mg tablet,extended release 24 hr RxNorm: 969462 Take 1 Tablet(s) Oral QD 06/19/19 25 No Stop Date Active pantoprazole 40 mg tablet,delayed release RxNorm: 105501 Take 1 Tablet(s) Oral QAM every morning 06/19/19 25 No Stop Date Active hydralazine 50 mg tablet RxNorm: 326365 Take 1 Tablet(s) Oral QID 06/19/19 25 No Stop Date Active carbamazepine 200 mg tablet RxNorm: 306498 Take 1 Tablet(s) Oral BID 06/19/19 25 No Stop Date Active amlodipine 10 mg tablet RxNorm: 841100 Take 1 Tablet(s) Oral QD 06/19/19 25 No Stop Date Active Eliquis 5 mg tablet RxNorm: 2850018 Take 1 Tablet(s) Oral BID 06/19/19 25 No Stop Date Active pen needle, diabetic 30 gauge x 3/16 RxNorm: Use 1 6 times per day w/insulin 06/14/19 25 026 Active pen needle, diabetic 30 gauge x 3/16 RxNorm: Use 1 needle 6 times per day w/insulin 06/14/19 25 025 Inactive nystatin 100,000 unit/gram topical powder RxNorm: 496981 Apply 1 Application Topical BID as needed abdominal/breast /groin folds 05/24/19 25 026 Active pregabalin 100 mg capsule RxNorm: 776468 Take 1 Capsule(s) Oral QAM every morning 05/22/19 25 025 Inactive nystatin 100,000 unit/gram topical powder RxNorm: 471602 Apply 1 Application Topical BID as needed abdominal/breast /groin folds 04/11/20 24 024 Inactive chlorthalidone 25 mg tablet RxNorm: 682324 Take 1 Tablet(s) Oral QAM every morning 04/06/20 No Stop Date Active pregabalin 150 mg capsule RxNorm: 420485 Take 1 Capsule(s) Oral QHS every night at bedtime 03/31/20 Inactive Vascepa 1 gram capsule RxNorm: 4492470 Take 2 Capsule(s) Oral BID 03/30/20 Active rosuvastatin 40 mg tablet RxNorm: 969162 1 TAB ORALLY EVERY EVENING (DX:CORONARY ARTERY DISEASE) 03/28/20 No Stop Date Active venlafaxine ER 75 mg capsule,extended release 24 hr RxNorm: 317650 3 CAPS (225MG) ORALLY DAILY (DX: MOOD DISORDER) 03/28/20 No Stop Date Active pregabalin 100 mg capsule RxNorm: 029667 Take 1 Capsule(s) Oral QAM every morning 03/20/20 Inactive cholecalciferol (vitamin D3) 1,250 mcg (50,000 unit) capsule RxNorm: 692103 Take 1 Capsule(s) Oral QW once a [...] Insulin 100 unit/mL (3 mL) subcutaneous RxNorm: 7591398 Inject 40 Unit(s) Subcutaneous BID 03/07/20 025 Inactive Please dispense one month supply. Humulin R U-500 (Concentrated) Insulin 500 unit/mL subcutaneous soln RxNorm: 751323 Inject 100 Unit(s) Subcutaneous AC before meals [...] PRN) to be use with new Accu [place] meter 03/04/20 024 Inactive ok to substitute with any covered alternative test strip FreeStyle Chema 2 Sensor kit RxNorm: Use UD as directed 03/02/20 Inactive Pen Needle 30 gauge x 09/29 RxNorm: Pen(s) Use 1 needle as directed TID 03/02/20 Inactive nystatin 100,000 unit/gram topical powder RxNorm: 388035 Apply 1 Application Topical BID as needed [...] (Concentrated) Insulin 500 unit/mL subcutaneous soln RxNorm: 992738 Inject 100 Unit(s) Subcutaneous TID 02/17/20 024 Inactive Humulin R U-500 (Concentrated) Insulin 500 unit/mL subcutaneous soln RxNorm: 810331 Inject 100 Unit(s) Subcutaneous TID 02/10/20 24 024 Inactive Radha Enrique U-100 Insulin 100 unit/mL (3 mL) subcutaneous RxNorm: 7485631 Inject 30 Unit(s) Subcutaneous BID 02/10/20 24 024 Inactive Please dispense one month supply. pregabalin 100 mg capsule RxNorm: 199384 Take 1 Capsule(s) Oral QAM every morning 02/07/20 24 024 Inactive isosorbide mononitrate ER 60 mg tablet,extended release 24 hr RxNorm: 963354 Take 1 Tablet(s) Oral QD 02/01/20 24 025 Active aripiprazole 15 mg tablet RxNorm: 801167 Take 1/2 Tablet(s) Oral QD 02/01/20 24 025 Active torsemide 20 mg tablet RxNorm: 911261 1 TAB ORALLY DAILY (DX: EDEMA) 01/27/20 24 No Stop Date Active potassium chloride ER 20 mEq tablet,extended release(part/cryst) RxNorm: 9317759 2 TABS (40MEQ) ORALLY TWICE DAILY (DX: HYPOKALEMIA) 01/27/20 24 025 Inactive cephalexin 500 mg capsule RxNorm: 520441 Take 1 Capsule(s) Oral QID 12/17/19 24 024 Inactive cephalexin 500 mg capsule RxNorm: 767217 Take 1 Capsule(s) Oral QID 12/17/19 24 024 Inactive acetaminophen 500 mg tablet RxNorm: 042349 (MAX APAP:4GM/24HR) Take 1 Tablet(s) Oral TID as needed for pain 12/10/19 24 024 Inactive torsemide 20 mg tablet RxNorm: 791173 Take 1 Tablet(s) Oral QD 10/26/19 24 024 Inactive potassium chloride ER 20 mEq tablet,extended release RxNorm: 872151 Take 2 Tablet(s) Oral BID 10/26/19 24 024 Inactive torsemide 20 mg tablet RxNorm: 372243 Take 1 Tablet(s) Oral QD 10/26/19 24 Inactive potassium chloride ER 20 mEq tablet,extended release RxNorm: 240780 Take 2 Tablet(s) Oral BID 10/26/19 24 Inactive Artificial Tears (PF) 0.1 %-0.3 % drops in a dropperette RxNorm: 276753 Apply 1-2 Drop(s) Both eyes BID as needed 09/28/19 24 025 Inactive erythromycin 5 mg/gram (0.5 %) eye ointment RxNorm: 262677 Apply 1 Application Both eyes QHS every night at bedtime Instill ~1 cm ribbon into affected eye 09/28/19 24 024 Inactive Artificial Tears (PF) 0.1 %-0.3 % drops in a dropperette RxNorm: 039336 Apply 1-2 Drop(s) Both eyes BID as needed 09/28/19 24 024 Inactive erythromycin 5 mg/gram (0.5 %) eye ointment RxNorm: 855255 Apply 1 Application Both eyes QHS every night at bedtime Instill ~1 cm ribbon into affected eye 09/28/19 24 024 Inactive acetaminophen 500 mg tablet RxNorm: 911459 (MAX APAP:4GM/24HR) Take 1 Tablet(s) Oral TID as needed for pain 09/24/19 24 024 Inactive carvedilol 25 mg tablet RxNorm: 496732 Take 1 Tablet(s) Oral QD 09/08/19 24 No Stop Date Active pregabalin 100 mg capsule RxNorm: 622840 Take 1 Capsule(s) Oral QAM every morning 09/07/19 24 024 Inactive bisacodyl 10 mg rectal suppository RxNorm: 354480 Insert 1 Suppository Rectal QD as needed 07/13/19 24 No Stop Date Active ketoconazole 2 % shampoo RxNorm: 545394 Apply 1 Application Topical UD as directed 07/13/19 24 No Stop Date Active Ozempic 1 mg/dose (4 mg/3 mL) subcutaneous pen injector RxNorm: 7183070 Inject 1 Milligram(s) Subcutaneous QW once a week 07/13/19 24 No Stop Date Active Guaifenesin AC 10 mg-100 mg/5 mL oral liquid RxNorm: 549389 Take 10 Milliliter(s) Oral Q4H every four hours as needed 07/13/19 No Stop Date Active hydrocortisone 2.5 % topical cream RxNorm: 600201 Apply 1 Application Topical BID as needed 07/13/19 No Stop Date Active rosuvastatin 20 mg sprinkle capsule RxNorm: 8741249 Take 1 Capsule(s) Oral QD 07/13/19 24 025 Inactive rosuvastatin 40 mg tablet RxNorm: 430356 Take 1 Tablet(s) Oral QPM every evening 07/13/19 24 024 Inactive ezetimibe 10 mg tablet RxNorm: 961923 Take 1 Tablet(s) Oral QD 07/13/19 24 025 Inactive polyethylene glycol 3350 17 gram/dose oral powder RxNorm: 000287 Take 17 Gram(s) Oral BID as needed mix in 4-8ox water 07/13/19 24 025 Inactive aripiprazole 15 mg tablet RxNorm: 090435 Take 1/2 Tablet(s) Oral QD 07/13/19 24 024 Inactive isosorbide mononitrate ER 60 mg tablet,extended release 24 hr RxNorm: 978741 Take 1 Tablet(s) Oral QD 07/13/19 24 024 Inactive ammonium lactate 12 % topical cream RxNorm: 982906 Apply 1 Application Topical BID 07/13/19 24 025 Inactive Vascepa 1 gram capsule RxNorm: 0846581 Take 2 Capsule(s) Oral BID 07/13/19 24 024 Inactive venlafaxine ER 75 mg capsule,extended release 24 hr RxNorm: 428271 Take 3 Capsule(s) Oral QD 07/13/19 24 024 Inactive Basaglar KwikPen U-100 Insulin 100 unit/mL (3 mL) subcutaneous RxNorm: 3380320 Inject 30U SubQ twice daily 07/07/19 24 024 Inactive Please dispense one month supply. Basaglar KwikPen U-100 Insulin 100 unit/mL (3 mL) subcutaneous RxNorm: 9826674 Inject 30U SubQ twice daily 07/07/19 24 024 Inactive Please dispense one month supply. pregabalin 150 mg capsule RxNorm: 967366 Take 1 Capsule(s) Oral QHS every night at bedtime 07/05/19 024 Inactive pregabalin 150 mg capsule RxNorm: 754958 Take 1 Capsule(s) Oral QHS every night at bedtime 07/05/19 24 024 Inactive polyethylene glycol 3350 17 gram/dose oral powder RxNorm: 313202 Take 1 Packet Oral QD as needed (1 packet = 17g) mix with 4-8oz of liquid 06/15/19 24 024 Inactive bisacodyl 10 mg rectal suppository RxNorm: 702089 Insert one suppository per rectum once daily as needed for constipation 06/15/19 24 024 Inactive bisacodyl 10 mg rectal suppository RxNorm: 617127 Insert one suppository per rectum once daily as needed for constipation 06/15/19 024 Inactive pregabalin 100 mg capsule RxNorm: 723526 Take 1 Capsule(s) Oral QAM every morning 04/27/20 23 024 Inactive Levemir FlexPen 100 unit/mL (3 mL) solution subcutaneous insulin pen RxNorm: 052560 Inject 30 Unit(s) Subcutaneous BID 04/27/20 23 024 Inactive rosuvastatin 40 mg tablet RxNorm: 337774 Take 1 Tablet(s) Oral QPM every evening 04/16/20 024 Inactive D/C rosuvastatin 20mg venlafaxine ER 75 mg capsule,extended release 24 hr RxNorm: 046156 Take 3 Capsule(s) Oral QD 04/14/20 23 023 Inactive pregabalin 100 mg capsule RxNorm: 518432 Take 1 Capsule(s) Oral QAM every morning [...] strip clotrimazole 1 % topical cream RxNorm: 690688 Take apply topically to abdominal folds twice daily for 14 days 03/12/20 23 024 Inactive Ozempic 1 mg/dose (4 mg/3 mL) subcutaneous pen injector RxNorm: 2827133 Inject 1 Milligram(s) Subcutaneous QW once a week 03/11/20 23 023 Inactive rosuvastatin 20 mg tablet RxNorm: 765509 Take 1 Tablet(s) Oral QD 02/26/20 023 Inactive d/c pravastatin 80mg Ozempic 1 mg/dose (4 mg/3 mL) subcutaneous pen injector RxNorm: 2122814 Inject 1 Milligram(s) Subcutaneous QW once a week 02/20/20 23 023 Inactive pregabalin 150 mg capsule RxNorm: 845572 Take 1 Capsule(s) Oral HS at bed time 02/19/20 23 023 Inactive pregabalin 100 mg capsule RxNorm: 770018 Take 1 Capsule(s) Oral QAM every morning 02/18/20 23 023 Inactive venlafaxine ER 75 mg capsule,extended release 24 hr RxNorm: 231570 Take 3 Capsule(s) Oral QD 02/04/20 023 Inactive FreeStyle Chema 2 Sensor kit RxNorm: use as directed 02/04/20 23 023 Inactive FreeStyle Chema 2 Sensor kit RxNorm: use as directed 02/04/20 23 024 Inactive fluconazole 150 mg tablet RxNorm: 814178 Take 1 Tablet(s) Oral on day 3 and on day 6 02/03/20 23 024 Inactive venlafaxine ER 150 mg capsule,extended release 24 hr RxNorm: 743239 Take 1 Capsule(s) Oral QD 02/03/20 23 023 Inactive chlorthalidone 25 mg tablet RxNorm: 311787 Take 1 Tablet(s) Oral QAM every morning 02/03/20 024 Inactive acetaminophen 500 mg tablet RxNorm: 056651 1 TABLET ORALLY 3 TIMES DAILY (MAX APAP:4GM/24HR) 12/15/19 023 Inactive clotrimazole 1 % topical cream RxNorm: 728519 apply 1g topically to top of feet and in between toes BID 12/09/19 23 025 Inactive potassium chloride ER 20 mEq tablet,extended release RxNorm: 088489 Take 1 Tablet(s) Oral BID 12/09/19 024 Inactive d/c 20mEq once daily (sent from hospital) nystatin 100,000 unit/gram topical powder RxNorm: 349953 APPLY TO AFFECTED AREAS TOPICALLY 2 TIMES DAILY 11/21/19 023 Inactive Nystop 100,000 unit/gram topical powder RxNorm: 833582 Apply to abd folds, under breasts and L side of groin Topical BID x 14 days, then BID PRN 11/20/19 023 Inactive dx: yeast dermatitis [place] Ultra Strength 4 %-30 %-10 % topical cream RxNorm: 187010 Apply 1 Gram(s) Topical QID PRN to feet and legs for neuropathic pain 11/11/19 024 Inactive clotrimazole 1 % topical cream RxNorm: 749603 Apply 1/2 Gram(s) Topical BID Apply to affected areas of groin, periarea, and abdominal topically 2 times daily 11/10/19 023 Inactive hydrocortisone 2.5 % topical cream RxNorm: 203364 Apply 1/2 Gram(s) Topical BID as needed 11/10/19 024 Inactive Levemir FlexPen 100 unit/mL (3 mL) solution subcutaneous insulin pen RxNorm: 595625 Inject 30 Unit(s) Subcutaneous BID 10/07/19 23 023 Inactive Humulin R U-500 (Concentrated) Insulin 500 unit/mL subcutaneous soln RxNorm: 862435 Inject 100 Unit(s) Subcutaneous TID 10/07/19 23 024 Inactive Ozempic 0.25 mg or 0.5 mg (2 mg/3 mL) subcutaneous pen injector RxNorm: 5671430 Inject 1/2 Milligram(s) Subcutaneous QW once a week 10/07/19 024 Inactive aripiprazole 15 mg tablet RxNorm: 979488 1/2 TAB (7.5MG) ORALLY DAILY (DX:MAJOR DEPRESSIVE DISORDER) 09/23/19 23 023 Inactive Accu-Chek Guide test strips RxNorm: Use 1 Test Strip QID 09/15/19 023 Inactive ok to substitute with any covered alternative test strip Lancets,Thin 28 gauge RxNorm: Use 1 as directed QID 09/15/19 23 023 Inactive torsemide 20 mg tablet RxNorm: 849472 Take 1 Tablet(s) Oral BID 09/09/19 23 024 Inactive d/c once daily dosing carvedilol 25 mg tablet RxNorm: 490058 Take 1 Tablet(s) Oral QD 08/25/19 23 024 Inactive pregabalin 150 mg capsule RxNorm: 723863 1 Capsule(s) Oral HS at bed time 08/18/19 23 023 Inactive pregabalin 100 mg capsule RxNorm: 467648 1 Capsule(s) Oral QAM every morning 08/18/19 23 023 Inactive carvedilol 25 mg tablet RxNorm: 739859 1 Tablet(s) Oral QD 07/28/19 23 023 Inactive lisinopril 20 mg tablet RxNorm: 417263 Give 1 Tablet(s) Oral QD 07/28/19 23 023 Inactive Lyrica 150 mg capsule RxNorm: 379865 Take 1 Capsule(s) Oral QHS every night at bedtime 07/19/19 23 023 Inactive d/c 100mg dose Diflucan 150 mg tablet RxNorm: 028226 Take 1 Tablet(s) Oral QD repeat on day 3 and 6 07/19/19 23 023 Inactive pregabalin 100 mg capsule RxNorm: 246006 Take 1 Capsule(s) Oral QAM every morning 07/19/19 23 023 Inactive gatifloxacin 0.5 % eye drops RxNorm: 893301 Instill 1 Drop(s) as directed TID Instill 1 drop in to affected eye(s) starting 1 day prior to surgery and continue until gone (do not exceed 4 weeks). 07/13/19 23 023 Inactive carvedilol 25 mg tablet RxNorm: 972675 2 Tablet(s) Oral BID 07/13/19 023 Inactive Humulin R Regular U-100 Insulin 100 unit/mL injection solution RxNorm: 126992 85 Unit(s) Injection TID 07/13/19 023 Inactive ketorolac 0.5 % eye drops RxNorm: 529564 Instill 1 Drop(s) as directed QID Instill 1 drop into affected eye(s) 4 times daily starting 1 day prior to surgery and continue until gone (do not exceed 4 weeks). 07/13/19 023 Inactive Diflucan 150 mg tablet RxNorm: 291487 Take 1 Tablet(s) Oral QD repeat on day 3 and 6 06/30/19 023 Inactive Accu-Chek Guide test strips RxNorm: Use 1 Test Strip QID Use 1 test strip to monitor blood glucose 4 times daily and as needed. Dx:E11.42. 06/23/19 023 Inactive ok to substitute with any covered alternative test strip dextromethorphan-gu aifenesin 10 mg-100 mg/5 mL oral liquid RxNorm: 438103 Take 10 Milliliter(s) Oral every 4 hours as needed for cough 06/19/19 023 Inactive dextromethorphan-gu aifenesin 10 mg-100 mg/5 mL oral liquid RxNorm: 337119 Take 10 Milliliter(s) Oral every 4 hours as needed for cough 06/19/19 23 023 Inactive Lyrica 150 mg capsule RxNorm: 809308 Take 1 Capsule(s) Oral QHS every night at bedtime 06/18/19 23 023 Inactive d/c 100mg dose aripiprazole 15 mg tablet RxNorm: 412502 1/2 TAB (7.5MG) ORALLY DAILY (DX:MAJOR DEPRESSIVE DISORDER) 06/05/19 23 023 Inactive pregabalin 100 mg capsule RxNorm: 466702 1 Capsule(s) Oral QAM every morning 06/02/19 023 Inactive Banophen 50 mg capsule RxNorm: 4359104 Take 1 Capsule(s) Oral Q6H every 6 hours as needed 05/19/19 No Stop Date Active Novolog Flexpen U-100 Insulin aspart 100 unit/mL (3 mL) subcutaneous RxNorm: 1434246 Inject 10 Unit(s) Subcutaneous QHS every night at bedtime with nighttime snack 04/08/20 022 Inactive Novolog Flexpen U-100 Insulin aspart 100 unit/mL (3 mL) subcutaneous RxNorm: 4549843 Inject 42 Unit(s) Subcutaneous TID in addition to sliding scale 04/08/20 022 Inactive d/c 36u albuterol sulfate HFA 90 mcg/actuation aerosol inhaler RxNorm: 3055755 Take 2 Puff(s) Inhalation Q4H every four hours as needed as needed for SOB, cough, or wheezing 04/07/20 030 Active Banophen 50 mg capsule RxNorm: 5101883 Take 1 Capsule(s) Oral Q6H every 6 hours as needed 04/06/20 023 Inactive diphenhydramine 50 mg tablet RxNorm: 5444346 Take 1 Tablet(s) Oral Q6H every 6 hours as needed 04/06/20 022 Inactive diphenhydramine 50 mg tablet RxNorm: 5344196 1 Tablet(s) Oral Q6H every 6 hours as needed 04/06/20 022 Inactive Abilify 15 mg tablet RxNorm: 162831 1/2 Tablet(s) Oral QD 03/10/20 22 023 Inactive Shingrix (PF) 50 mcg/0.5 mL intramuscular suspension, kit RxNorm: 0965158 Administer 1/2 Milliliter(s) Intramuscular QD one time shingrix step 2 ( step 1 given 11/04/21) WITH needle - Nursing please administer upon arrival and once administered post a bridge message with date of administration, supervisor purification, expiration date, and lot# so we can update [facility] 02/18/20 22 Inactive dispense with needle Shingrix (PF) 50 mcg/0.5 mL intramuscular suspension, kit RxNorm: 8074698 Administer 1/2 Milliliter(s) Intramuscular QD one time shingrix step 2 ( step 1 given 11/04/21) WITH needle - Nursing please administer upon arrival and once administered post a bridge message with date of administration, supervisor purification, expiration date, and lot# so we can update [facility] 02/18/20 22 Inactive dispense with needle Lyrica 100 mg capsule RxNorm: 417534 Take 1 Capsule(s) Oral QAM every morning 01/08/20 22 022 Inactive d/c 50mg dose acetaminophen 500 mg tablet RxNorm: 333358 Take 1 Tablet(s) Oral TID 01/08/20 22 022 Inactive d/c PRN order Lyrica 150 mg capsule RxNorm: 564876 Take 1 Capsule(s) Oral QHS every night at bedtime 01/08/20 22 023 Inactive d/c 100mg dose polyethylene glycol 3350 17 gram/dose oral powder RxNorm: 995552 Take 17=1 capful Gram(s) Oral QD mix with 4-8oz of liquid 01/08/20 22 025 Inactive take this in addition to BID prn order Abilify 5 mg tablet RxNorm: 302372 Take 1 Tablet(s) Oral QD take 1 tab po QD #30 refill 5 dx: MDD 12/12/19 22 022 Inactive Abilify 5 mg tablet RxNorm: 078802 Take 1 Tablet(s) Oral QD take 1 tab po QD #30 refill 5 dx: MDD 12/12/19 22 022 Inactive Novolog Flexpen U-100 Insulin aspart 100 unit/mL (3 mL) subcutaneous RxNorm: 1334309 Inject 42 Unit(s) Subcutaneous TID in addition to sliding scale 12/10/19 22 022 Inactive d/c 36u chlorthalidone 25 mg tablet RxNorm: 583530 Take 1 Tablet(s) Oral QAM every morning 12/10/19 22 023 Inactive pregabalin 50 mg capsule RxNorm: 212294 Take 1 Capsule(s) Oral QAM every morning 11/12/19 22 022 Inactive tetanus-diphtheria toxoids-Td 2 Lf unit-2 Lf unit/0.5 mL IM suspension RxNorm: 139 Take 0.5 Miscellaneous Intramuscular 11/12/19 22 022 Inactive need tdap - nursing to administer upon arrival pregabalin 50 mg capsule RxNorm: 224042 Take 1 Capsule(s) Oral QAM every morning 10/16/19 22 022 Inactive pregabalin 50 mg capsule RxNorm: 666985 Take 1 Capsule(s) Oral QAM every morning 10/16/19 22 022 Inactive pregabalin 50 mg capsule RxNorm: 269863 1 Capsule(s) Oral QAM every morning 10/15/19 22 022 Inactive Shingrix (PF) 50 mcg/0.5 mL intramuscular suspension, kit RxNorm: 1853214 Administer 1/2 Milliliter(s) Intramuscular one time Nursing please administer upon arrival and once administered post a bridge message with date of administration, supervisor purification, expiration date, and lot# so we can update [facility]. 10/09/19 22 022 Inactive shingrix step 1 Shingrix (PF) 50 mcg/0.5 mL intramuscular suspension, kit RxNorm: 4344712 Administer 1/2 Milliliter(s) Intramuscular one time Nursing please administer upon arrival and once administered post a bridge message with date of administration, supervisor purification, expiration date, and lot# so we can [...] aspart 100 unit/mL (3 mL) subcutaneous RxNorm: 9120487 Inject 10 Unit(s) Subcutaneous QHS every night at bedtime with nighttime snack 10/08/19 22 022 Inactive Shingrix (PF) 50 mcg/0.5 mL intramuscular suspension, kit RxNorm: 8376004 ADMINISTER 2-DOSE SERIES PER CDC GUIDELINES 10/08/19 22 022 Active Shingrix (PF) 50 mcg/0.5 mL intramuscular suspension, kit RxNorm: 7823891 ADMINISTER 2-DOSE SERIES PER CDC GUIDELINES 10/08/19 22 022 Inactive Novolog Flexpen U-100 Insulin aspart 100 unit/mL (3 mL) subcutaneous RxNorm: 8377939 Inject 36 Unit(s) Subcutaneous TID in addition to sliding scale 10/08/19 22 022 Inactive cholecalciferol (vitamin D3) 1,250 mcg (50,000 unit) capsule RxNorm: 951352 Take 1 Capsule(s) Oral QW once a week 10/08/19 024 Inactive Novofine Autocover 30 gauge x 1/3 needle RxNorm: Use 1 Miscellaneous UD as directed Use 1 needle as directed to administer insulin 5 times a day Dx:E11.42. 10/03/19 022 Inactive ok to substitute with any covered alternative pen needle benzoyl peroxide 10 % topical cleanser RxNorm: 909139 Apply 1 Application Topical QD apply to face, wash rinse and dry once daily (may change to QOD if drying) 08/19/19 22 022 Inactive (%covered by insurance) #60ml refill 11 dx: acne benzoyl peroxide 10 % topical cleanser RxNorm: 898352 Apply 1 Application Topical QD apply to face, wash rinse and dry once daily (may change to QOD if drying) 08/19/19 22 022 Inactive (%covered by insurance) #60ml refill 11 dx: acne benzoyl peroxide 10 % topical cleanser RxNorm: 281306 Apply 1 Application Topical QD apply to face, wash rinse and dry once daily (may change to QOD if drying) 08/19/19 22 05/03/2 022 Inactive (%covered by insurance) #60ml refill 11 dx: acne Lyrica 50 mg capsule RxNorm: 848613 Take 1 Capsule(s) Oral QAM every morning Take 1 capsule by mouth once daily 08/19/19 22 022 Inactive benzoyl peroxide 10 % topical cleanser RxNorm: 443644 Apply 1 Application Topical QD apply to face, wash rinse and dry once daily (may change to QOD if drying) 08/19/19 22 022 Inactive (%covered by insurance) #60ml refill 11 dx: acne Lyrica 100 mg capsule RxNorm: 439620 Take 1 Capsule(s) Oral QHS every night at bedtime Take 1 capsule by mouth once daily at bedtime 08/19/19 22 022 Inactive Lyrica 100 mg capsule RxNorm: 070926 Take 1 Capsule(s) Oral QHS every night at bedtime Take 1 capsule by mouth once daily at bedtime 08/16/19 22 022 Inactive Lyrica 50 mg capsule RxNorm: 695709 Take 1 Capsule(s) Oral QAM every morning Take 1 capsule by mouth once daily 08/16/19 22 022 Inactive Levemir FlexTouch U-100 Insulin 100 unit/mL (3 mL) subcutaneous pen RxNorm: 183371 Inject 86 Unit(s) Subcutaneous BID 08/05/19 22 022 Inactive d/c 83units BID Lyrica 100 mg capsule RxNorm: 504745 Take 1 Capsule(s) Oral QHS every night at bedtime Take 1 capsule by mouth once daily at bedtime 07/14/19 22 022 Inactive Lyrica 50 mg capsule RxNorm: 189653 Take 1 Capsule(s) Oral QAM every morning Take 1 capsule by mouth once daily 07/14/19 22 022 Inactive Levemir FlexTouch U-100 Insulin 100 unit/mL (3 mL) subcutaneous pen RxNorm: 581526 Inject 83 Unit(s) Subcutaneous BID 07/08/19 22 [...] test strip hydralazine 50 mg tablet RxNorm: 527858 Take 1 Tablet(s) Oral QID 05/05/20 21 022 Inactive venlafaxine ER 225 mg tablet,extended release 24 hr RxNorm: 404737 Take 1 Tablet(s) Oral QD 05/05/20 21 021 Inactive venlafaxine ER 225 mg tablet,extended release 24 hr RxNorm: 010361 Take 1 Tablet(s) Oral QD 05/05/20 21 022 Inactive isosorbide mononitrate ER 30 mg tablet,extended release 24 hr RxNorm: 609455 Take 1 Tablet(s) Oral QD 05/05/20 21 024 Inactive hydralazine 50 mg tablet RxNorm: 034228 Take 1 Tablet(s) Oral QID 05/05/20 21 021 Inactive aspirin 81 mg tablet,delayed release RxNorm: 503533 Take 1 Tablet(s) Oral QD 03/31/20 022 Inactive Vitamin D2 1,250 mcg (50,000 unit) capsule RxNorm: 2933280 Take 1 Capsule(s) Oral QW once a week x 12 weeks 03/31/20 022 Inactive Vitamin D2 1,250 mcg (50,000 unit) capsule RxNorm: 8200183 Take 1 Capsule(s) Oral QW once a week 03/31/20 Inactive Zetia 10 mg tablet RxNorm: 930951 Take 1 Tablet(s) Oral QD 03/31/20 024 Inactive Zetia 10 mg tablet RxNorm: 008243 Take 1 Tablet(s) Oral QD 03/31/20 021 Inactive hydralazine 25 mg tablet RxNorm: 218562 Take 1 Tablet(s) Oral QID 03/31/20 021 Inactive hydralazine 25 mg tablet RxNorm: 705405 Take 1 Tablet(s) Oral QID 03/31/20 021 Inactive hydralazine 10 mg tablet RxNorm: 761477 Take 1 Tablet(s) Oral QID 03/03/20 021 Inactive cephalexin 500 mg tablet RxNorm: 323316 Take 1 Tablet(s) Oral QID 02/27/20 021 Inactive cephalexin 500 mg tablet RxNorm: 503360 Take 1 Tablet(s) Oral QID 02/27/20 021 Inactive lisinopril 40 mg tablet RxNorm: 916544 Take 1 Tablet(s) Oral QD 02/11/20 21 023 Inactive Eliquis 5 mg tablet RxNorm: 6218411 Take 1 Tablet(s) Oral BID 01/05/20 21 025 Inactive Eliquis 5 mg tablet RxNorm: 7377166 Take 2 Tablet(s) Oral QD 08/17/ 021 Inactive Lyrica 50 mg capsule RxNorm: 981444 Take 1 Capsule(s) Oral QAM every morning 12/24/19 21 021 Inactive Lyrica 100 mg capsule RxNorm: 515793 Take 1 Capsule(s) Oral QHS every night at bedtime 12/24/19 21 021 Inactive clotrimazole 1 % topical cream RxNorm: 584780 Apply to right foot and toes Topical BID 12/04/19 21 023 Inactive metoprolol succinate ER 200 mg tablet,extended release 24 hr RxNorm: 170678 Take 1 Tablet(s) Oral QD 12/04/19 21 023 Inactive ciprofloxacin 500 mg tablet RxNorm: 834594 Take 1 Tablet(s) Oral QD 11/30/19 21 021 Inactive DX ofloxacin otic drops Accu-Chek Guide test strips RxNorm: USE 1 TO CHECK GLUCOSE 4 TIMES DAILY AND NEEDED 11/15/19 21 023 Inactive Blood Glucose Test strips RxNorm: Use 1 Test Strip QID at PRN 11/05/19 21 023 Inactive E11.42 lisinopril 30 mg tablet RxNorm: 522339 Take 1 Tablet(s) Oral QD 10/30/19 021 Inactive lisinopril 20 mg tablet RxNorm: 479098 Take 1 Tablet(s) Oral QD 10/23/19 21 021 Inactive lisinopril 20 mg tablet RxNorm: 578023 Take 1 Tablet(s) Oral QD 10/23/19 21 021 Inactive lisinopril 10 mg tablet RxNorm: 328313 Take 1 Tablet(s) Oral QD 10/02/19 21 021 Inactive icosapent ethyl 1 gram capsule RxNorm: 5822903 Take 2 Capsule(s) (2 gm) Oral BID with meals 09/12/19 21 024 Inactive Okay to dispense one 2gm tab if you have that available. icosapent ethyl 1 gram capsule RxNorm: 8588341 Take 2 Capsule(s) Oral BID 09/12/19 21 021 Inactive Okay to dispense one 2gm tab if you have that available. amlodipine 10 mg tablet RxNorm: 861866 Take 1 Tablet(s) Oral QD 09/04/19 21 021 Inactive aspirin 81 mg tablet,delayed release RxNorm: 852034 Take 1 Tablet(s) Oral QD 09/04/19 21 021 Inactive Levemir FlexTouch U-100 Insulin 100 unit/mL (3 mL) subcutaneous pen RxNorm: 923948 Inject 150 Unit(s) Subcutaneous BID 09/04/19 21 022 Inactive venlafaxine ER 150 mg tablet,extended release 24 hr RxNorm: 971413 Take 1 Tablet(s) Oral QD 09/04/19 021 Inactive clotrimazole-betame thasone 1 %-0.05 % topical cream RxNorm: 042217 Apply to rash on red area on left abdomen/chest Topical BID 08/10/19 021 Inactive amlodipine 5 mg tablet RxNorm: 521455 Take 1 Tablet(s) Oral QD 07/31/19 21 021 Inactive cephalexin 500 mg tablet RxNorm: 664200 Take 1 Tablet(s) Oral BID BID - Twice Daily 07/31/19 21 021 Inactive Start 08/01/20 pantoprazole 40 mg tablet,delayed release RxNorm: 906345 Take 1 Tablet(s) Oral QAM every morning 07/08/19 025 Inactive clopidogrel 75 mg tablet RxNorm: 988552 Take 1 Tablet(s) Oral QD 07/08/19 021 Inactive Blood Glucose Test strips RxNorm: Use 1 Test Strip QID at PRN 07/08/19 21 021 Inactive E11.42 senna 8.6 mg tablet RxNorm: 078290 Take 1 Tablet(s) Oral QD 07/08/19 21 025 Inactive Novolog Flexpen U-100 Insulin aspart 100 unit/mL (3 mL) subcutaneous RxNorm: 6543885 Administer per sliding scale Milliliter(s) Subcutaneous TID 151-200: 10 u; 201-250: 20 u; 251-300: 30 u; 301-350: 40 u; 351-400: 50 u. 07/08/19 21 022 Inactive lisinopril 5 mg tablet RxNorm: 916117 Take 1 Tablet(s) Oral QD 07/08/19 21 021 Inactive Novolog Flexpen U-100 Insulin aspart 100 unit/mL (3 mL) subcutaneous RxNorm: 8429406 Inject 85 Unit(s) Subcutaneous TID 07/08/19 21 022 Inactive pravastatin 80 mg tablet RxNorm: 947223 Take 1 Tablet(s) Oral QHS every night at bedtime 07/08/19 023 Inactive clotrimazole 1 % topical cream RxNorm: 562050 Apply to bilateral groin areas Topical BID 07/08/19 022 Inactive metoprolol succinate ER 200 mg tablet,extended release 24 hr RxNorm: 186746 Take 1 Tablet(s) Oral QD 07/08/19 021 Inactive Vitamin D3 25 mcg (1,000 unit) tablet RxNorm: 452101 Take 1 Tablet(s) Oral QD 07/08/19 021 Inactive isosorbide dinitrate 30 mg tablet RxNorm: 170341 Take 1 Tablet(s) Oral QD 07/08/19 21 021 Inactive carbamazepine 200 mg tablet RxNorm: 438213 Take 1 Tablet(s) Oral BID 07/08/19 21 025 Inactive Levemir FlexTouch U-100 Insulin 100 unit/mL (3 mL) subcutaneous pen RxNorm: 199790 Inject 140 Unit(s) Subcutaneous BID 07/08/19 21 021 Inactive torsemide 20 mg tablet RxNorm: 722271 Take 1 Tablet(s) Oral QD 07/08/19 21 023 Inactive venlafaxine 75 mg tablet RxNorm: 616239 Take 1 Tablet(s) Oral QD 07/08/19 021 Inactive acetaminophen 500 mg tablet RxNorm: 131439 Take 1 Tablet(s) Oral TID as needed for headache 06/18/19 21 021 Inactive acetaminophen 500 mg tablet RxNorm: 078595 Take 1 Tablet(s) Oral TID as needed for headache 06/18/19 021 Inactive Lyrica 100 mg capsule RxNorm: 160807 Take 1 Capsule(s) Oral QHS every night at bedtime 06/11/19 21 021 Inactive Lyrica 50 mg capsule RxNorm: 115203 Take 1 Capsule(s) Oral QAM every morning 06/10/19 21 021 Inactive hydrocortisone 2.5 % topical cream RxNorm: 147669 Apply to bilateral groin creases Topical BID 05/15/20 20 021 Inactive clotrimazole 1 % topical cream RxNorm: 858616 Apply to bilateral groin areas Topical BID 05/15/20 20 021 Inactive Lyrica 50 mg capsule RxNorm: 372020 Take 1 Capsule(s) Oral QAM every morning 05/14/20 20 020 Inactive Lyrica 100 mg capsule RxNorm: 798595 Take 1 Capsule(s) Oral QHS every night [...] Inactive Nystop 100,000 unit/gram topical powder RxNorm: 962741 Apply to abd folds, under breasts and L side of groin Topical BID x 14 days, then BID PRN 04/08/20 20 020 Inactive dx: yeast dermatitis Lyrica 100 mg capsule RxNorm: 600350 Take 1 Capsule(s) Oral QHS every night at bedtime 10/28/20 20 Inactive Lyrica 50 mg capsule RxNorm: 736414 Take 1 Capsule(s) Oral QAM every morning 03/13/20 20 Inactive ketoconazole 2 % shampoo RxNorm: 693413 Apply Topical two times a week with showers 03/11/20 20 Inactive cholecalciferol (vitamin D3) 50 mcg (2,000 unit) tablet RxNorm: 787534 Take 1 Tablet(s) Oral QD 03/11/20 20 021 Inactive Zetia 10 mg tablet RxNorm: 706451 Take 1 Tablet(s) Oral QD 03/07/20 20 021 Inactive Zetia 10 mg tablet RxNorm: 211457 Take 1 Tablet(s) Oral QD 03/07/20 20 Inactive Lyrica 50 mg capsule RxNorm: 520128 Take 1 Capsule(s) Oral QAM every morning 02/15/20 20 Inactive Lyrica 100 mg capsule RxNorm: 284107 Take 1 Capsule(s) Oral QHS every night at bedtime 02/15/20 20 Inactive Lyrica 100 mg capsule RxNorm: 196248 Take 1 Capsule(s) Oral QHS every night at bedtime 02/15/20 20 Inactive Lyrica 50 mg capsule RxNorm: 192286 Take 1 Capsule(s) Oral QAM every morning 02/15/20 20 Inactive loperamide 2 mg capsule RxNorm: 079815 Take 1 Capsule(s) Oral QID as needed 09/06/19 025 Inactive venlafaxine ER 75 mg capsule,extended release 24 hr RxNorm: 157635 Take 3 Capsule(s) Oral QD 06/12/19 023 Inactive polyethylene glycol 3350 17 gram/dose oral powder RxNorm: 462111 Take 17=1 capful Gram(s) Oral BID as needed mix with 4-8oz of liquid 06/12/19 22 024 Inactive icosapent ethyl 1 gram capsule RxNorm: 1739902 Take 2 Capsule(s) (2 gm) Oral BID with meals 10/07/19 23 023 Inactive Okay to dispense one 2gm tab if you have that available. Levemir FlexTouch U-100 Insulin 100 unit/mL (3 mL) subcutaneous pen RxNorm: 662609 Inject 80 Unit(s) Subcutaneous BID 07/14/19 23 023 Inactive metoprolol succinate ER 200 mg tablet,extended release 24 hr RxNorm: 145528 Take 1 Tablet(s) Oral QD 08/12/19 025 Inactive hydralazine 50 mg tablet RxNorm: 370641 Take 1 Tablet(s) Oral QID 08/12/19 025 Inactive Soft Touch Lancets RxNorm: miscellaneous 03/04/20 24 025 Inactive Novolog Flexpen U-100 Insulin aspart 100 unit/mL (3 mL) subcutaneous RxNorm: 9773335 Insert 30 Unit(s) Subcutaneous TID with meals [...] Planned Activity Notes Codes Status Date Referral: [facility] Radiology/Imaging WPtel: [address] [place], [place] [id number] [place]ReferralAppointment Dfkjffyja72/06/2025Patient Education: Patient Medication [id number]/17/2025ppointment: Harrison Munson WPtel: [address] [place]/08/08/2024ppointment: Harrison Munson WPtel: [address] [place], [place] [id number] [facility]/07/11/2024Referral: [facility]/Endocrinology WPtel: [address] [place] [address] 3 [id number] USReferralNo Records Wugqlwui26/24/2025ppointment: Harrison Munson WPtel: [id number] [facility]02/08/2024ppointment: Harrison Munson WPtel: [address] [place]/U001/11/2024ppointment: Sandra Clark WPtel: [address] [facility] Psych Follow Up12/09/2022ppointment: Tapan Shirley WPtel: [address] [facility] [address] [id number] USTCM10/26/2022Referral: [facility] WPtel: [address], [address] [id number] USReferralRecords Zckmmftw17/08/2023ppointment: Tapan Shirley WPtel: [address] [facility] [address] [id number] USF/U008/11/2022ppointment: Tapan Shirley WPtel: [address] [facility] 300 [id number] [place]/U007/14/2022ppointment: Tapan Shirley WPtel: [address] [facility] 300 [id number] USF/U02Referral: [facility] WPtel: [address] [id number] VVGaosymulDsqyoargq06/12/2022Referral: General CardiologyReferralCompleted 1Referral: General PsychologistReferralClosedReferral: General PsychiatristReferralPatient/Family [...] Sister Jyotsna involved in his care cell# [phone] Guardian: Giulia (tapan met in person 09/01/21), [...] appointment 05.26.2024 with Jessa Webster MD at [facility]. Start Pioglitazone 15 mg QD. Stop Basaglar insulin. Increase Ozempic 2 mg once wkly. Continue Humalin R U-500 100 units with meals TID. FOLLOW UP 2 MONTHS. If BG >400 add 50 units to next scheduled dose of Humalin R U 500 insulin 06/12/2024
--- OUTSIDE RECORDS SUMMARY | 2024-10-19 18:20 | XMS_ITS | CCD ---
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 Costume Cutter Name Role Phone Arpit VIDALKeeganHarrison Primary Care Provider Leona vailable Unavailable Chronic Care Management Unavaila ble Summary Purpose DataExchange Insurance Providers Payer name Policy type / Coverage type Covered alliance party ID Effective Begin Date Effective End Date [place] [id number] Unknown Unknown Medicaid [place] Medicare Part B [id number] Unknown Unknown Family history Sister Brittany Suggs Diagnosis Age At Onset No Family Disease Entered N/A Runs in the family Diagnosis Age At Onset No Known Diseases N/A Sister Blanka Mcduffie Diagnosis Age At Onset No Family Disease Entered N/A Social History Social History Element Codes Description Effec tive Dates Tobacco history SNOMED CT: 468863559 Never smoker 01/16 Sexually Active? Unknown No [...] Half-Way 09/03/[address]: 386604820 No Alcohol Consum ption 09/02/2020 Allergies, Adverse Reactions, Alerts Substance Reaction Codes Entered Date Inactivated Date Status * NO KNOWN FOOD ALLERGIES Linehls6907/13/2023No Inactive DateActiveLISINOPRILRxNorm: 7083704No Inactive DateActiveMetformin BPdHhgigqw77/28/2020No Inactive DateActive* NO KNOWN ENVIRONMENTAL MKEUQARLOZwxvvxj33/27/2024No Inactive DateActive Problems Condition Codes Effective Dates Condition St atus BMI 60.0-69.9, adult ICD-10: Z68.44 ICD-9: V85.4410/ctiveDiabetic neuropathy associated with type 2 diabetes mellitusICD-10: E11.40 ICD-9: 250.6010/ctiveLow back painICD-10: M54.50 ICD-9: 724.210/ctiveParaparesis of both lower limbsICD-10: G82.20 ICD-9: 344.110/ctivePhysical deconditioningICD-10: R53.81 ICD-9: 799.310/ctivePVD (peripheral vascular disease)ICD-10: I73.9 ICD-9: 443.910/ctiveType 2 diabetes mellitus with diabetic polyneuropathy, with long-term current use of insulinICD-10: E11.42 ICD-9: 250.6010/ctiveAdvanced care planning - to document end of life marimkamhdpQzulbhs11/24/2024ctiveAdvance care planningICD-10: Z71.89 ICD-9: V65.4909/ctiveAmputated toe of right footICD-10: S98.131A ICD-9: 895.009ctiveAnnual [...] E55.9 ICD-9: 268.909/ctiveCallus of heelICD-10: L84 ICD-9: 34838/esolvedGout due to renal impairmentICD-10: M10.30 ICD-9: 274.1005/esolvedHyperhidrosis of palmsICD-10: L74.512 ICD-9: 705.2105/esolvedHyperlipidemia, unspecifiedICD-10: E78.5 ICD-9: 272.405/esolvedOther penitentiary (current) drug [...] tagICD-10: L91.8 ICD-9: 701.904/esolvedCoronary artery disease involving [place] coronary artery of [place] heart, angina presence unspecifiedICD-10: I25.10 ICD-9: 414.0102/4ActiveInappropriate sexual behaviorICD-10: Z72.89 ICD-9: 312.8910/ctivePre-op evaluationICD-10: Z01.818 ICD-9: V72.8403/ctiveSecondary hypertensionICD-10: I15.9 ICD-9: 405.9903/ctiveDepressionICD-10: F32.9 ICD-9: 78364/esolvedDVT (deep venous thrombosis)ICD-10: I82.409 ICD-9: 453.4009/esolvedEncounter for immunizationICD-10: Z23 ICD-9: V03.8909/2ResolvedLong term (current) use of insulinICD-10: Z79.4 02/10/2022esolvedMuscular painICD-10: M79.10 ICD-9: 729.109/esolvedHypertension associated with diabetesICD-10: E11.59 ICD-9: 250.8008/2ResolvedContact with and (suspected) exposure to covid-19 ICD-10: Z20.822 ICD-9: V01.7908/1ResolvedOther infective acute otitis externa of left ear ICD-10: H60.392 ICD-9: 380.1008/1ResolvedScrotal skin lesionICD-10: N50.9 ICD-9: 608.908/esolvedAnemia due to stage 3b chronic kidney diseaseICD- 10: N18.32 ICD-9: 285.2105/1ResolvedChronic kidney disease, stage 3 unspecifiedICD- 10: N18.3004/esolvedContact with and (suspected) exposure to other viral communicable diseasesICD-10: Z20.828 ICD-9: V01.79025427YwdqarqzBzaycerbAuqijab02/28/2020ActiveDiabetes mellitus Type 9Hnmzkye88/28/2020ActiveAnemia in chronic kidney diseaseICD-10: D63.1 02/12/2020ResolvedHyperlipidemia, unspecifiedICD-10: E78.509Resolved Medications Medication Codes Instructions Start Date Stop Date Status Fill Instructions chlorthalidone 25 mg tablet RxNorm: 559338 Take 1 Tablet(s) Oral QAM every morning 04/06/20 24 No Stop Date Active pregabalin 150 mg capsule RxNorm: 024343 Take 1 Capsule(s) Oral QHS every night at bedtime 03/31/20 24 024 Inactive Vascepa 1 gram capsule RxNorm: 2984798 Take 2 Capsule(s) Oral BID 03/30/20 24 025 Active rosuvastatin 40 mg tablet RxNorm: 701768 1 TAB ORALLY EVERY EVENING (DX:CORONARY ARTERY DISEASE) 03/28/20 No Stop Date Active venlafaxine ER 75 mg capsule,extended release 24 hr RxNorm: 778098 3 CAPS (225MG) ORALLY DAILY (DX: MOOD DISORDER) 03/28/20 No Stop Date Active pregabalin 100 mg capsule RxNorm: 007092 Take 1 Capsule(s) Oral QAM every morning 03/20/20 Inactive cholecalciferol (vitamin D3) 1,250 mcg (50,000 unit) capsule RxNorm: 238133 Take 1 Capsule(s) Oral QW once a [...] with any covered alternative test strip Tusharagldestin EugeneikPen U-100 Insulin 100 unit/mL (3 mL) subcutaneous RxNorm: 7169864 Inject 40 Unit(s) Subcutaneous BID 03/07/20 025 Inactive Please dispense one month supply. Humulin R U-500 (Concentrated) Insulin 500 unit/mL subcutaneous soln RxNorm: 335231 Inject 100 Unit(s) Subcutaneous AC before meals [...] PRN) to be use with new Accu [place] meter 03/04/20 Inactive ok to substitute with any covered alternative test strip FreeStyle Chema 2 Sensor kit RxNorm: Use UD as directed 03/02/20 025 Inactive FreeStyle [place] 2 Sensor kit RxNorm: Use UD as directed 03/02/20 Inactive Pen Needle 30 gauge x 5/16 RxNorm: Pen(s) Use 1 needle as directed TID 03/02/20 Inactive nystatin 100,000 unit/gram topical powder RxNorm: 463200 Apply 1 Application Topical BID as needed [...] (Concentrated) Insulin 500 unit/mL subcutaneous soln RxNorm: 815167 Inject 100 Unit(s) Subcutaneous TID 02/17/20 24 024 Inactive Humulin R U-500 (Concentrated) Insulin 500 unit/mL subcutaneous soln RxNorm: 047885 Inject 100 Unit(s) Subcutaneous TID 02/10/20 24 024 Inactive Basaglar KwikPen U-100 Insulin 100 unit/mL (3 mL) subcutaneous RxNorm: 0196234 Inject 30 Unit(s) Subcutaneous BID 02/10/20 024 Inactive Please dispense one month supply. pregabalin 100 mg capsule RxNorm: 421732 Take 1 Capsule(s) Oral QAM every morning 02/07/20 24 Inactive isosorbide mononitrate ER 60 mg tablet,extended release 24 hr RxNorm: 503038 Take 1 Tablet(s) Oral QD 02/01/20 24 025 Active aripiprazole 15 mg tablet RxNorm: 010621 Take 1/2 Tablet(s) Oral QD 02/01/20 24 025 Active torsemide 20 mg tablet RxNorm: 310277 1 TAB ORALLY DAILY (DX: EDEMA) 01/27/20 No Stop Date Active potassium chloride ER 20 mEq tablet,extended release(part/cryst) RxNorm: 8525250 2 TABS (40MEQ) ORALLY TWICE DAILY (DX: HYPOKALEMIA) 01/27/20 24 025 Inactive cephalexin 500 mg capsule RxNorm: 619896 Take 1 Capsule(s) Oral QID 12/17/19 24 024 Inactive cephalexin 500 mg capsule RxNorm: 978995 Take 1 Capsule(s) Oral QID 12/17/19 24 024 Inactive acetaminophen 500 mg tablet RxNorm: 994035 (MAX APAP:4GM/24HR) Take 1 Tablet(s) Oral TID as needed for pain 12/10/19 24 024 Inactive torsemide 20 mg tablet RxNorm: 309063 Take 1 Tablet(s) Oral QD 10/26/19 24 Inactive potassium chloride ER 20 mEq tablet,extended release RxNorm: 320787 Take 2 Tablet(s) Oral BID 10/26/19 24 025 Inactive torsemide 20 mg tablet RxNorm: 762857 Take 1 Tablet(s) Oral QD 10/26/19 24 024 Inactive potassium chloride ER 20 mEq tablet,extended release RxNorm: 184919 Take 2 Tablet(s) Oral BID 10/26/19 24 024 Inactive Artificial Tears (PF) 0.1 %-0.3 % drops in a dropperette RxNorm: 225455 Apply 1-2 Drop(s) Both eyes BID as needed 09/28/19 24 025 Inactive erythromycin 5 mg/gram (0.5 %) eye ointment RxNorm: 435753 Apply 1 Application Both eyes QHS every night at bedtime Instill ~1 cm ribbon into affected eye 09/28/19 24 024 Inactive Artificial Tears (PF) 0.1 %-0.3 % drops in a dropperette RxNorm: 466835 Apply 1-2 Drop(s) Both eyes BID as needed 09/28/19 24 024 Inactive erythromycin 5 mg/gram (0.5 %) eye ointment RxNorm: 452928 Apply 1 Application Both eyes QHS every night at bedtime Instill ~1 cm ribbon into affected eye 09/28/19 24 Inactive acetaminophen 500 mg tablet RxNorm: 342912 (MAX APAP:4GM/24HR) Take 1 Tablet(s) Oral TID as needed for pain 09/24/19 Inactive carvedilol 25 mg tablet RxNorm: 550859 Take 1 Tablet(s) Oral QD 09/08/19 24 No Stop Date Active pregabalin 100 mg capsule RxNorm: 534229 Take 1 Capsule(s) Oral QAM every morning 09/07/19 24 024 Inactive ezetimibe 10 mg tablet RxNorm: 296385 Take 1 Tablet(s) Oral QD 07/13/19 24 025 Inactive bisacodyl 10 mg rectal suppository RxNorm: 917160 Insert 1 Suppository Rectal QD as needed 07/13/19 No Stop Date Active polyethylene glycol 3350 17 gram/dose oral powder RxNorm: 554538 Take 17 Gram(s) Oral BID as needed mix in 4-8ox water 07/13/19 24 025 Inactive ketoconazole 2 % shampoo RxNorm: 108847 Apply 1 Application Topical UD as directed 07/13/19 No Stop Date Active Ozempic 1 mg/dose (4 mg/3 mL) subcutaneous pen injector RxNorm: 0727584 Inject 1 Milligram(s) Subcutaneous QW once a week 07/13/19 24 No Stop Date Active Guaifenesin AC 10 mg-100 mg/5 mL oral liquid RxNorm: 308586 Take 10 Milliliter(s) Oral Q4H every four hours as needed 07/13/19 No Stop Date Active ammonium lactate 12 % topical cream RxNorm: 001293 Apply 1 Application Topical BID 07/13/19 24 025 Inactive hydrocortisone 2.5 % topical cream RxNorm: 526328 Apply 1 Application Topical BID as needed 07/13/19 No Stop Date Active rosuvastatin 20 mg sprinkle capsule RxNorm: 0535390 Take 1 Capsule(s) Oral QD 07/13/19 24 025 Inactive rosuvastatin 40 mg tablet RxNorm: 398298 Take 1 Tablet(s) Oral QPM every evening 07/13/19 024 Inactive aripiprazole 15 mg tablet RxNorm: 488121 Take 1/2 Tablet(s) Oral QD 07/13/19 24 024 Inactive isosorbide mononitrate ER 60 mg tablet,extended release 24 hr RxNorm: 024255 Take 1 Tablet(s) Oral QD 07/13/19 24 024 Inactive Vascepa 1 gram capsule RxNorm: 2554041 Take 2 Capsule(s) Oral BID 07/13/19 24 024 Inactive venlafaxine ER 75 mg capsule,extended release 24 hr RxNorm: 679043 Take 3 Capsule(s) Oral QD 07/13/19 24 024 Inactive Basaglar KwikPen U-100 Insulin 100 unit/mL (3 mL) subcutaneous RxNorm: 2589565 Inject 30U SubQ twice daily 07/07/19 24 024 Inactive Please dispense one month supply. Basaglar KwikPen U-100 Insulin 100 unit/mL (3 mL) subcutaneous RxNorm: 5106863 Inject 30U SubQ twice daily 07/07/19 24 024 Inactive Please dispense one month supply. pregabalin 150 mg capsule RxNorm: 266280 Take 1 Capsule(s) Oral QHS every night at bedtime 07/05/19 24 024 Inactive pregabalin 150 mg capsule RxNorm: 396756 Take 1 Capsule(s) Oral QHS every night at bedtime 07/05/19 024 Inactive polyethylene glycol 3350 17 gram/dose oral powder RxNorm: 596772 Take 1 Packet Oral QD as needed (1 packet = 17g) mix with 4-8oz of liquid 06/15/19 024 Inactive bisacodyl 10 mg rectal suppository RxNorm: 843504 Insert one suppository per rectum once daily as needed for constipation 06/15/19 024 Inactive bisacodyl 10 mg rectal suppository RxNorm: 720522 Insert one suppository per rectum once daily as needed for constipation 06/15/19 024 Inactive pregabalin 100 mg capsule RxNorm: 165774 Take 1 Capsule(s) Oral QAM every morning 04/27/20 024 Inactive Levemir FlexPen 100 unit/mL (3 mL) solution subcutaneous insulin pen RxNorm: 070115 Inject 30 Unit(s) Subcutaneous BID 04/27/20 024 Inactive rosuvastatin 40 mg tablet RxNorm: 624105 Take 1 Tablet(s) Oral QPM every evening 04/16/20 024 Inactive D/C rosuvastatin 20mg venlafaxine ER 75 mg capsule,extended release 24 hr RxNorm: 594818 Take 3 Capsule(s) Oral QD 04/14/20 023 Inactive pregabalin 100 mg capsule RxNorm: 979280 Take 1 Capsule(s) Oral QAM every morning [...] strip clotrimazole 1 % topical cream RxNorm: 075788 Take apply topically to abdominal folds twice daily for 14 days 03/12/20 024 Inactive Ozempic 1 mg/dose (4 mg/3 mL) subcutaneous pen injector RxNorm: 2603970 Inject 1 Milligram(s) Subcutaneous QW once a week 03/11/20 23 023 Inactive rosuvastatin 20 mg tablet RxNorm: 231413 Take 1 Tablet(s) Oral QD 02/26/20 23 023 Inactive d/c pravastatin 80mg Ozempic 1 mg/dose (4 mg/3 mL) subcutaneous pen injector RxNorm: 5321569 Inject 1 Milligram(s) Subcutaneous QW once a week 02/20/20 23 023 Inactive pregabalin 150 mg capsule RxNorm: 196344 Take 1 Capsule(s) Oral HS at bed time 02/19/20 23 023 Inactive pregabalin 100 mg capsule RxNorm: 582377 Take 1 Capsule(s) Oral QAM every morning 02/18/20 23 023 Inactive venlafaxine ER 75 mg capsule,extended release 24 hr RxNorm: 706214 Take 3 Capsule(s) Oral QD 02/04/20 23 023 Inactive FreeStyle Chema 2 Sensor kit RxNorm: use as directed 02/04/20 23 023 Inactive FreeStyle Chema 2 Sensor kit RxNorm: use as directed 02/04/20 23 024 Inactive fluconazole 150 mg tablet RxNorm: 263768 Take 1 Tablet(s) Oral on day 3 and on day 6 02/03/20 024 Inactive chlorthalidone 25 mg tablet RxNorm: 087080 Take 1 Tablet(s) Oral QAM every morning 02/03/20 23 024 Inactive venlafaxine ER 150 mg capsule,extended release 24 hr RxNorm: 207231 Take 1 Capsule(s) Oral QD 02/03/20 23 023 Inactive acetaminophen 500 mg tablet RxNorm: 333043 1 TABLET ORALLY 3 TIMES DAILY (MAX APAP:4GM/24HR) 12/15/19 23 023 Inactive clotrimazole 1 % topical cream RxNorm: 620882 apply 1g topically to top of feet and in between toes BID 12/09/19 23 025 Inactive potassium chloride ER 20 mEq tablet,extended release RxNorm: 166982 Take 1 Tablet(s) Oral BID 12/09/19 024 Inactive d/c 20mEq once daily (sent from hospital) nystatin 100,000 unit/gram topical powder RxNorm: 212634 APPLY TO AFFECTED AREAS TOPICALLY 2 TIMES DAILY 11/21/19 23 023 Inactive Nystop 100,000 unit/gram topical powder RxNorm: 087510 Apply to abd folds, under breasts and L side of groin Topical BID x 14 days, then BID PRN 11/20/19 023 Inactive dx: yeast dermatitis [place] Ultra Strength 4 %-30 %-10 % topical cream RxNorm: 017054 Apply 1 Gram(s) Topical QID PRN to feet and legs for neuropathic pain 11/11/19 024 Inactive clotrimazole 1 % topical cream RxNorm: 849491 Apply 1/2 Gram(s) Topical BID Apply to affected areas of groin, periarea, and abdominal topically 2 times daily 11/10/19 023 Inactive hydrocortisone 2.5 % topical cream RxNorm: 234061 Apply 1/2 Gram(s) Topical BID as needed 11/10/19 024 Inactive Levemir FlexPen 100 unit/mL (3 mL) solution subcutaneous insulin pen RxNorm: 430302 Inject 30 Unit(s) Subcutaneous BID 10/07/19 023 Inactive Humulin R U-500 (Concentrated) Insulin 500 unit/mL subcutaneous soln RxNorm: 544459 Inject 100 Unit(s) Subcutaneous TID 10/07/19 024 Inactive Ozempic 0.25 mg or 0.5 mg (2 mg/3 mL) subcutaneous pen injector RxNorm: 7474721 Inject 1/2 Milligram(s) Subcutaneous QW once a week 10/07/19 23 024 Inactive aripiprazole 15 mg tablet RxNorm: 398389 1/2 TAB (7.5MG) ORALLY DAILY (DX:MAJOR DEPRESSIVE DISORDER) 09/23/19 023 Inactive Accu-Chek Guide test strips RxNorm: Use 1 Test Strip QID 09/15/19 23 023 Inactive ok to substitute with any covered alternative test strip Lancets,Thin 28 gauge RxNorm: Use 1 as directed QID 09/15/19 23 023 Inactive torsemide 20 mg tablet RxNorm: 803998 Take 1 Tablet(s) Oral BID 09/09/19 23 024 Inactive d/c once daily dosing carvedilol 25 mg tablet RxNorm: 689840 Take 1 Tablet(s) Oral QD 08/25/19 23 024 Inactive pregabalin 150 mg capsule RxNorm: 782090 1 Capsule(s) Oral HS at bed time 08/18/19 23 023 Inactive pregabalin 100 mg capsule RxNorm: 839118 1 Capsule(s) Oral QAM every morning 08/18/19 23 023 Inactive carvedilol 25 mg tablet RxNorm: 275054 1 Tablet(s) Oral QD 07/28/19 23 023 Inactive lisinopril 20 mg tablet RxNorm: 981202 Give 1 Tablet(s) Oral QD 07/28/19 23 023 Inactive Lyrica 150 mg capsule RxNorm: 737239 Take 1 Capsule(s) Oral QHS every night at bedtime 07/19/19 23 023 Inactive d/c 100mg dose Diflucan 150 mg tablet RxNorm: 757640 Take 1 Tablet(s) Oral QD repeat on day 3 and 6 07/19/19 23 023 Inactive pregabalin 100 mg capsule RxNorm: 246189 Take 1 Capsule(s) Oral QAM every morning 07/19/19 23 023 Inactive gatifloxacin 0.5 % eye drops RxNorm: 624368 Instill 1 Drop(s) as directed TID Instill 1 drop in to affected eye(s) starting 1 day prior to surgery and continue until gone (do not exceed 4 weeks). 07/13/19 23 023 Inactive carvedilol 25 mg tablet RxNorm: 212518 2 Tablet(s) Oral BID 07/13/19 23 023 Inactive Humulin R Regular U-100 Insulin 100 unit/mL injection solution RxNorm: 470906 85 Unit(s) Injection TID 07/13/19 23 023 Inactive ketorolac 0.5 % eye drops RxNorm: 898877 Instill 1 Drop(s) as directed QID Instill 1 drop into affected eye(s) 4 times daily starting 1 day prior to surgery and continue until gone (do not exceed 4 weeks). 07/13/19 23 023 Inactive Diflucan 150 mg tablet RxNorm: 666617 Take 1 Tablet(s) Oral QD repeat on day 3 and 6 06/30/19 23 023 Inactive Accu-Chek Guide test strips RxNorm: Use 1 Test Strip QID Use 1 test strip to monitor blood glucose 4 times daily and as needed. Dx:E11.42. 06/23/19 23 023 Inactive ok to substitute with any covered alternative test strip dextromethorphan-gu aifenesin 10 mg-100 mg/5 mL oral liquid RxNorm: 097674 Take 10 Milliliter(s) Oral every 4 hours as needed for cough 06/19/19 23 023 Inactive dextromethorphan-gu aifenesin 10 mg-100 mg/5 mL oral liquid RxNorm: 856286 Take 10 Milliliter(s) Oral every 4 hours as needed for cough 06/19/19 23 023 Inactive Lyrica 150 mg capsule RxNorm: 123695 Take 1 Capsule(s) Oral QHS every night at bedtime 06/18/19 23 023 Inactive d/c 100mg dose aripiprazole 15 mg tablet RxNorm: 063380 /2 TAB (7.5MG) ORALLY DAILY (DX:MAJOR DEPRESSIVE DISORDER) 06/05/19 23 023 Inactive pregabalin 100 mg capsule RxNorm: 121332 1 Capsule(s) Oral QAM every morning 06/02/19 23 023 Inactive Banophen 50 mg capsule RxNorm: 9585731 Take 1 Capsule(s) Oral Q6H every 6 hours as needed 05/19/19 23 No Stop Date Active Novolog Flexpen U-100 Insulin aspart 100 unit/mL (3 mL) subcutaneous RxNorm: 2377987 Inject 10 Unit(s) Subcutaneous QHS every night at bedtime with nighttime snack 04/08/20 022 Inactive Novolog Flexpen U-100 Insulin aspart 100 unit/mL (3 mL) subcutaneous RxNorm: 8160647 Inject 42 Unit(s) Subcutaneous TID in addition to sliding scale 04/08/20 Inactive d/c 36u albuterol sulfate HFA 90 mcg/actuation aerosol inhaler RxNorm: 1703480 Take 2 Puff(s) Inhalation Q4H every four hours as needed as needed for SOB, cough, or wheezing 04/07/20 030 Active Banophen 50 mg capsule RxNorm: 9854471 Take 1 Capsule(s) Oral Q6H every 6 hours as needed 04/06/20 023 Inactive diphenhydramine 50 mg tablet RxNorm: 4014092 Take 1 Tablet(s) Oral Q6H every 6 hours as needed 04/06/20 022 Inactive diphenhydramine 50 mg tablet RxNorm: 5151278 1 Tablet(s) Oral Q6H every 6 hours as needed 04/06/20 022 Inactive Abilify 15 mg tablet RxNorm: 957615 1/2 Tablet(s) Oral QD 03/10/20 023 Inactive Shingrix (PF) 50 mcg/0.5 mL intramuscular suspension, kit RxNorm: 6871097 Administer 1/2 Milliliter(s) Intramuscular QD one time shingrix step 2 ( step 1 given 11/04/21) WITH needle - Nursing please administer upon arrival and once administered post a bridge message with date of administration, medicaid service coordinator, expiration date, and lot# so we can update [facility] 02/18/20 022 Inactive dispense with needle Shingrix (PF) 50 mcg/0.5 mL intramuscular suspension, kit RxNorm: 1234783 Administer 1/2 Milliliter(s) Intramuscular QD one time shingrix step 2 ( step 1 given 11/04/21) WITH needle - Nursing please administer upon arrival and once administered post a bridge message with date of administration, medicaid service coordinator, expiration date, and lot# so we can update [facility] 02/18/20 22 022 Inactive dispense with needle polyethylene glycol 3350 17 gram/dose oral powder RxNorm: 944117 Take 17=1 capful Gram(s) Oral QD mix with 4-8oz of liquid 01/08/20 22 025 Inactive take this in addition to BID prn order Lyrica 100 mg capsule RxNorm: 722715 Take 1 Capsule(s) Oral QAM every morning 01/08/20 22 022 Inactive d/c 50mg dose acetaminophen 500 mg tablet RxNorm: 339269 Take 1 Tablet(s) Oral TID 01/08/20 22 022 Inactive d/c PRN order Lyrica 150 mg capsule RxNorm: 964426 Take 1 Capsule(s) Oral QHS every night at bedtime 01/08/20 22 023 Inactive d/c 100mg dose Abilify 5 mg tablet RxNorm: 646396 Take 1 Tablet(s) Oral QD take 1 tab po QD #30 refill 5 dx: MDD 12/12/19 22 022 Inactive Abilify 5 mg tablet RxNorm: 483851 Take 1 Tablet(s) Oral QD take 1 tab po QD #30 refill 5 dx: MDD 12/12/19 22 022 Inactive Novolog Flexpen U-100 Insulin aspart 100 unit/mL (3 mL) subcutaneous RxNorm: 7908746 Inject 42 Unit(s) Subcutaneous TID in addition to sliding scale 12/10/19 22 022 Inactive d/c 36u chlorthalidone 25 mg tablet RxNorm: 954763 Take 1 Tablet(s) Oral QAM every morning 12/10/19 22 023 Inactive pregabalin 50 mg capsule RxNorm: 284418 Take 1 Capsule(s) Oral QAM every morning 11/12/19 22 022 Inactive tetanus-diphtheria toxoids-Td 2 Lf unit-2 Lf unit/0.5 mL IM suspension RxNorm: 139 Take 0.5 Miscellaneous Intramuscular 11/12/19 22 022 Inactive need tdap - nursing to administer upon arrival pregabalin 50 mg capsule RxNorm: 858609 Take 1 Capsule(s) Oral QAM every morning 10/16/19 22 022 Inactive pregabalin 50 mg capsule RxNorm: 009367 Take 1 Capsule(s) Oral QAM every morning 10/16/19 22 022 Inactive pregabalin 50 mg capsule RxNorm: 901795 1 Capsule(s) Oral QAM every morning 10/15/19 22 022 Inactive Shingrix (PF) 50 mcg/0.5 mL intramuscular suspension, kit RxNorm: 2730438 Administer 1/2 Milliliter(s) Intramuscular one time Nursing please administer upon arrival and once administered post a bridge message with date of administration, medicaid service coordinator, expiration date, and lot# so we can update [facility]. 10/09/19 22 022 Inactive shingrix step 1 Shingrix (PF) 50 mcg/0.5 mL intramuscular suspension, kit RxNorm: 3460654 Administer 1/2 Milliliter(s) Intramuscular one time Nursing please administer upon arrival and once administered post a bridge message with date of administration, medicaid service coordinator, expiration date, and lot# so we [...] aspart 100 unit/mL (3 mL) subcutaneous RxNorm: 9434387 Inject 10 Unit(s) Subcutaneous QHS every night at bedtime with nighttime snack 10/08/19 22 022 Inactive Shingrix (PF) 50 mcg/0.5 mL intramuscular suspension, kit RxNorm: 2339073 ADMINISTER 2-DOSE SERIES PER CDC GUIDELINES 10/08/19 22 022 Active Shingrix (PF) 50 mcg/0.5 mL intramuscular suspension, kit RxNorm: 4848932 ADMINISTER 2-DOSE SERIES PER CDC GUIDELINES 10/08/19 22 Inactive Novolog Flexpen U-100 Insulin aspart 100 unit/mL (3 mL) subcutaneous RxNorm: 2882860 Inject 36 Unit(s) Subcutaneous TID in addition to sliding scale 10/08/19 022 Inactive cholecalciferol (vitamin D3) 1,250 mcg (50,000 unit) capsule RxNorm: 880369 Take 1 Capsule(s) Oral QW once a week 10/08/19 Inactive Novofine Autocover 30 gauge x 1/3 needle RxNorm: Use 1 Miscellaneous UD as directed Use 1 needle as directed to administer insulin 5 times a day Dx:E11.42. 10/03/19 Inactive ok to substitute with any covered alternative pen needle benzoyl peroxide 10 % topical cleanser RxNorm: 898621 Apply 1 Application Topical QD apply to face, wash rinse and dry once daily (may change to QOD if drying) 08/19/19 22 022 Inactive (%covered by insurance) #60ml refill 11 dx: acne benzoyl peroxide 10 % topical cleanser RxNorm: 672825 Apply 1 Application Topical QD apply to face, wash rinse and dry once daily (may change to QOD if drying) 08/19/19 22 022 Inactive (%covered by insurance) #60ml refill 11 dx: acne benzoyl peroxide 10 % topical cleanser RxNorm: 754570 Apply 1 Application Topical QD apply to face, wash rinse and dry once daily (may change to QOD if drying) 08/19/19 22 022 Inactive (%covered by insurance) #60ml refill 11 dx: acne Lyrica 50 mg capsule RxNorm: 020403 Take 1 Capsule(s) Oral QAM every morning Take 1 capsule by mouth once daily 08/19/19 22 022 Inactive benzoyl peroxide 10 % topical cleanser RxNorm: 542194 Apply 1 Application Topical QD apply to face, wash rinse and dry once daily (may change to QOD if drying) 08/19/19 22 Inactive (%covered by insurance) #60ml refill 11 dx: acne Lyrica 100 mg capsule RxNorm: 018510 Take 1 Capsule(s) Oral QHS every night at bedtime Take 1 capsule by mouth once daily at bedtime 08/19/19 22 022 Inactive Lyrica 100 mg capsule RxNorm: 308027 Take 1 Capsule(s) Oral QHS every night at bedtime Take 1 capsule by mouth once daily at bedtime 08/16/19 22 022 Inactive Lyrica 50 mg capsule RxNorm: 142290 Take 1 Capsule(s) Oral QAM every morning Take 1 capsule by mouth once daily 08/16/19 22 Inactive Levemir FlexTouch U-100 Insulin 100 unit/mL (3 mL) subcutaneous pen RxNorm: 775426 Inject 86 Unit(s) Subcutaneous BID 08/05/19 22 022 Inactive d/c 83units BID Lyrica 100 mg capsule RxNorm: 471711 Take 1 Capsule(s) Oral QHS every night at bedtime Take 1 capsule by mouth once daily at bedtime 07/14/19 22 022 Inactive Lyrica 50 mg capsule RxNorm: 056695 Take 1 Capsule(s) Oral QAM every morning Take 1 capsule by mouth once daily 07/14/19 22 022 Inactive Levemir FlexTouch U-100 Insulin 100 unit/mL (3 mL) subcutaneous pen RxNorm: 336393 Inject 83 Unit(s) Subcutaneous BID 07/08/19 22 [...] test strip hydralazine 50 mg tablet RxNorm: 424632 Take 1 Tablet(s) Oral QID 05/05/20 21 022 Inactive venlafaxine ER 225 mg tablet,extended release 24 hr RxNorm: 039097 Take 1 Tablet(s) Oral QD 05/05/20 21 021 Inactive venlafaxine ER 225 mg tablet,extended release 24 hr RxNorm: 598226 Take 1 Tablet(s) Oral QD 05/05/20 21 022 Inactive isosorbide mononitrate ER 30 mg tablet,extended release 24 hr RxNorm: 404473 Take 1 Tablet(s) Oral QD 05/05/20 21 024 Inactive hydralazine 50 mg tablet RxNorm: 259609 Take 1 Tablet(s) Oral QID 05/05/20 21 021 Inactive aspirin 81 mg tablet,delayed release RxNorm: 300808 Take 1 Tablet(s) Oral QD 03/31/20 21 022 Inactive Vitamin D2 1,250 mcg (50,000 unit) capsule RxNorm: 3660399 Take 1 Capsule(s) Oral QW once a week x 12 weeks 03/31/20 022 Inactive Vitamin D2 1,250 mcg (50,000 unit) capsule RxNorm: 6817226 Take 1 Capsule(s) Oral QW once a week 03/31/20 Inactive Zetia 10 mg tablet RxNorm: 384145 Take 1 Tablet(s) Oral QD 03/31/20 024 Inactive Zetia 10 mg tablet RxNorm: 911946 Take 1 Tablet(s) Oral QD 03/31/20 021 Inactive hydralazine 25 mg tablet RxNorm: 170188 Take 1 Tablet(s) Oral QID 03/31/20 021 Inactive hydralazine 25 mg tablet RxNorm: 799814 Take 1 Tablet(s) Oral QID 03/31/20 021 Inactive hydralazine 10 mg tablet RxNorm: 122734 Take 1 Tablet(s) Oral QID 03/03/20 021 Inactive cephalexin 500 mg tablet RxNorm: 112962 Take 1 Tablet(s) Oral QID 02/27/20 021 Inactive cephalexin 500 mg tablet RxNorm: 322445 Take 1 Tablet(s) Oral QID 02/27/20 021 Inactive lisinopril 40 mg tablet RxNorm: 293115 Take 1 Tablet(s) Oral QD 02/11/20 21 023 Inactive Eliquis 5 mg tablet RxNorm: 0854823 Take 1 Tablet(s) Oral BID 01/05/20 21 025 Inactive Eliquis 5 mg tablet RxNorm: 1416512 Take 2 Tablet(s) Oral QD 01/01/20 21 021 Inactive Lyrica 50 mg capsule RxNorm: 649150 Take 1 Capsule(s) Oral QAM every morning 12/24/19 21 021 Inactive Lyrica 100 mg capsule RxNorm: 958512 Take 1 Capsule(s) Oral QHS every night at bedtime 12/24/19 21 021 Inactive clotrimazole 1 % topical cream RxNorm: 043541 Apply to right foot and toes Topical BID 12/04/19 21 023 Inactive metoprolol succinate ER 200 mg tablet,extended release 24 hr RxNorm: 083983 Take 1 Tablet(s) Oral QD 12/04/19 21 023 Inactive ciprofloxacin 500 mg tablet RxNorm: 539242 Take 1 Tablet(s) Oral QD 11/30/19 021 Inactive DX ofloxacin otic drops Accu-Chek Guide test strips RxNorm: USE 1 TO CHECK GLUCOSE 4 TIMES DAILY AND NEEDED 11/15/19 21 023 Inactive Blood Glucose Test strips RxNorm: Use 1 Test Strip QID at PRN 11/05/19 21 023 Inactive E11.42 lisinopril 30 mg tablet RxNorm: 123613 Take 1 Tablet(s) Oral QD 10/30/19 021 Inactive lisinopril 20 mg tablet RxNorm: 136379 Take 1 Tablet(s) Oral QD 10/23/19 21 021 Inactive lisinopril 20 mg tablet RxNorm: 975600 Take 1 Tablet(s) Oral QD 10/23/19 21 021 Inactive lisinopril 10 mg tablet RxNorm: 256133 Take 1 Tablet(s) Oral QD 10/02/19 21 021 Inactive icosapent ethyl 1 gram capsule RxNorm: 9649902 Take 2 Capsule(s) (2 gm) Oral BID with meals 09/12/19 024 Inactive Okay to dispense one 2gm tab if you have that available. icosapent ethyl 1 gram capsule RxNorm: 3419512 Take 2 Capsule(s) Oral BID 09/12/19 21 021 Inactive Okay to dispense one 2gm tab if you have that available. amlodipine 10 mg tablet RxNorm: 563510 Take 1 Tablet(s) Oral QD 09/04/19 21 021 Inactive aspirin 81 mg tablet,delayed release RxNorm: 896512 Take 1 Tablet(s) Oral QD 09/04/19 21 021 Inactive Levemir FlexTouch U-100 Insulin 100 unit/mL (3 mL) subcutaneous pen RxNorm: 889523 Inject 150 Unit(s) Subcutaneous BID 09/04/19 21 022 Inactive venlafaxine ER 150 mg tablet,extended release 24 hr RxNorm: 571365 Take 1 Tablet(s) Oral QD 09/04/19 021 Inactive clotrimazole-betame thasone 1 %-0.05 % topical cream RxNorm: 826241 Apply to rash on red area on left abdomen/chest Topical BID 08/10/19 21 021 Inactive amlodipine 5 mg tablet RxNorm: 162978 Take 1 Tablet(s) Oral QD 07/31/19 021 Inactive cephalexin 500 mg tablet RxNorm: 845799 Take 1 Tablet(s) Oral BID BID - Twice Daily 07/31/19 021 Inactive Start 08/01/20 pantoprazole 40 mg tablet,delayed release RxNorm: 798144 Take 1 Tablet(s) Oral QAM every morning 07/08/19 025 Inactive senna 8.6 mg tablet RxNorm: 714318 Take 1 Tablet(s) Oral QD 07/08/19 025 Inactive carbamazepine 200 mg tablet RxNorm: 576002 Take 1 Tablet(s) Oral BID 07/08/19 025 Inactive clopidogrel 75 mg tablet RxNorm: 460392 Take 1 Tablet(s) Oral QD 07/08/19 021 Inactive Blood Glucose Test strips RxNorm: Use 1 Test Strip QID at PRN 07/08/19 021 Inactive E11.42 Novolog Flexpen U-100 Insulin aspart 100 unit/mL (3 mL) subcutaneous RxNorm: 1215786 Administer per sliding scale Milliliter(s) Subcutaneous TID 151-200: 10 u; 201-250: 20 u; 251-300: 30 u; 301-350: 40 u; 351-400: 50 u. 07/08/19 21 022 Inactive lisinopril 5 mg tablet RxNorm: 675896 Take 1 Tablet(s) Oral QD 07/08/19 21 021 Inactive Novolog Flexpen U-100 Insulin aspart 100 unit/mL (3 mL) subcutaneous RxNorm: 9286368 Inject 85 Unit(s) Subcutaneous TID 07/08/19 21 022 Inactive pravastatin 80 mg tablet RxNorm: 296621 Take 1 Tablet(s) Oral QHS every night at bedtime 07/08/19 023 Inactive clotrimazole 1 % topical cream RxNorm: 339093 Apply to bilateral groin areas Topical BID 07/08/19 022 Inactive metoprolol succinate ER 200 mg tablet,extended release 24 hr RxNorm: 004994 Take 1 Tablet(s) Oral QD 07/08/19 21 021 Inactive Vitamin D3 25 mcg (1,000 unit) tablet RxNorm: 043192 Take 1 Tablet(s) Oral QD 07/08/19 021 Inactive isosorbide dinitrate 30 mg tablet RxNorm: 325165 Take 1 Tablet(s) Oral QD 07/08/19 021 Inactive Levemir FlexTouch U-100 Insulin 100 unit/mL (3 mL) subcutaneous pen RxNorm: 905736 Inject 140 Unit(s) Subcutaneous BID 07/08/19 21 021 Inactive torsemide 20 mg tablet RxNorm: 827743 Take 1 Tablet(s) Oral QD 07/08/19 21 023 Inactive venlafaxine 75 mg tablet RxNorm: 955554 Take 1 Tablet(s) Oral QD 07/08/19 021 Inactive acetaminophen 500 mg tablet RxNorm: 962954 Take 1 Tablet(s) Oral TID as needed for headache 06/18/19 021 Inactive acetaminophen 500 mg tablet RxNorm: 710615 Take 1 Tablet(s) Oral TID as needed for headache 06/18/19 21 021 Inactive Lyrica 100 mg capsule RxNorm: 487348 Take 1 Capsule(s) Oral QHS every night at bedtime 06/11/19 021 Inactive Lyrica 50 mg capsule RxNorm: 280818 Take 1 Capsule(s) Oral QAM every morning 06/10/19 21 021 Inactive hydrocortisone 2.5 % topical cream RxNorm: 660769 Apply to bilateral groin creases Topical BID 05/15/20 20 021 Inactive clotrimazole 1 % topical cream RxNorm: 303334 Apply to bilateral groin areas Topical BID 05/15/20 20 021 Inactive Lyrica 50 mg capsule RxNorm: 742895 Take 1 Capsule(s) Oral QAM every morning 05/14/20 20 020 Inactive Lyrica 100 mg capsule RxNorm: 539839 Take 1 Capsule(s) Oral QHS every night [...] Inactive Nystop 100,000 unit/gram topical powder RxNorm: 195421 Apply to abd folds, under breasts and L side of groin Topical BID x 14 days, then BID PRN 04/08/20 20 020 Inactive dx: yeast dermatitis Lyrica 100 mg capsule RxNorm: 090120 Take 1 Capsule(s) Oral QHS every night at bedtime 03/13/20 20 020 Inactive Lyrica 50 mg capsule RxNorm: 315359 Take 1 Capsule(s) Oral QAM every morning 03/13/20 20 020 Inactive ketoconazole 2 % shampoo RxNorm: 159047 Apply Topical two times a week with showers 03/11/20 20 024 Inactive cholecalciferol (vitamin D3) 50 mcg (2,000 unit) tablet RxNorm: 946994 Take 1 Tablet(s) Oral QD 03/11/20 021 Inactive Zetia 10 mg tablet RxNorm: 998629 Take 1 Tablet(s) Oral QD 03/07/20 021 Inactive Zetia 10 mg tablet RxNorm: 944184 Take 1 Tablet(s) Oral QD 03/07/20 Inactive Lyrica 50 mg capsule RxNorm: 722502 Take 1 Capsule(s) Oral QAM every morning 02/15/20 020 Inactive Lyrica 100 mg capsule RxNorm: 115987 Take 1 Capsule(s) Oral QHS every night at bedtime 02/15/20 Inactive Lyrica 100 mg capsule RxNorm: 401982 Take 1 Capsule(s) Oral QHS every night at bedtime 02/15/20 020 Inactive Lyrica 50 mg capsule RxNorm: 764840 Take 1 Capsule(s) Oral QAM every morning 02/15/20 020 Inactive metoprolol succinate ER 200 mg tablet,extended release 24 hr RxNorm: 132249 Take 1 Tablet(s) Oral QD 08/12/19 025 Inactive loperamide 2 mg capsule RxNorm: 028827 Take 1 Capsule(s) Oral QID as needed 09/06/19 025 Inactive hydralazine 50 mg tablet RxNorm: 344376 Take 1 Tablet(s) Oral QID 08/12/19 025 Inactive Soft Touch Lancets RxNorm: miscellaneous 03/04/20 24 025 Inactive venlafaxine ER 75 mg capsule,extended release 24 hr RxNorm: 164130 Take 3 Capsule(s) Oral QD 06/12/19 22 023 Inactive polyethylene glycol 3350 17 gram/dose oral powder RxNorm: 964428 Take 17=1 capful Gram(s) Oral BID as needed mix with 4-8oz of liquid 06/12/19 22 024 Inactive icosapent ethyl 1 gram capsule RxNorm: 8558520 Take 2 Capsule(s) (2 gm) Oral BID with meals 10/07/19 23 023 Inactive Okay to dispense one 2gm tab if you have that available. Levemir FlexTouch U-100 Insulin 100 unit/mL (3 mL) subcutaneous pen RxNorm: 232856 Inject 80 Unit(s) Subcutaneous BID 07/14/19 23 023 Inactive Novolog Flexpen U-100 Insulin aspart 100 unit/mL (3 mL) subcutaneous RxNorm: 3241749 Insert 30 Unit(s) Subcutaneous TID with meals [...] Planned Activity Notes Codes Status Date Referral: [facility] [address] [id number] [place]erral[place]ointment Vsoxgnkkm29/06/2025Referral: [facility]/Endocrinology WPtel: [address] [facility] [address] [id number] [place]ReferralNo Records [id number]/24/2025Referral: [facility] WPtel: [address] [facility], [address] [id number] [place]ReferralRecords [id number]/08/2023Referral: [facility] WPtel: [address] [facility] [address] [id number]/12/2022Referral: General CardiologyReferralCompleted 1Referral: General PsychologistReferralClosedReferral: General PsychiatristReferralPatient/Family [...] Sister Jyotsna involved in his care cell# [phone] Guardian: Giulia (tapan met in person 09/01/21), now has Lexii (same group as giulia)AWV 9. Lab Schedule: Mar-/September*September (CBC with diff, CMP, A1c) March: (CBC, CMP, A1c, Lipids, VitD)5.31.2024: CBC, CMP Na 139, K2.6L, creat 1.45H, [...] appointment 05.26.2024 with Jessa Webster MD at [facility]. Start Pioglitazone 15 mg QD. Stop Basaglar insulin. Increase Ozempic 2 mg once wkly. Continue Humalin R U-500 100 units with meals TID. FOLLOW UP 2 MONTHS. If BG >400 add 50 units to next scheduled dose of Humalin R U 500 insulin 06/12/2024
--- OUTSIDE RECORDS SUMMARY | 2024-10-19 18:22 | XMS_ITS | CCD ---
Author Name Cecilio Durham Address [address] [facility] [address] [place] [address] Phone Organization [facility] Phone Care Team Providers Care Handbag Stitcher Name Role Phone Harrison Durham Primary Care Provider Leona vailable Unavailable Chronic Care Management Unavaila ble Summary Purpose DataExchange Insurance Providers Payer name Policy type / Coverage type Covered constitution party ID Effective Begin Date Effective End Date [place] Part B [id number] Unknown Unknown [place] Part B [id number] Unknown Unknown Family history Sister Brittany Suggs Diagnosis Age At Onset No Family Disease Entered N/A Runs in the family Diagnosis Age At Onset No Known Diseases N/A Sister Blanka Mcduffie Diagnosis Age At Onset No Family Disease Entered N/A Social History Social History Element Codes Description Effec tive Dates Tobacco history SNOMED CT: 548994524 Never smoker 01/16 Sexually Active? Unknown No [...] Residential 09/03/[address]: 361975024 No Alcohol Consum ption 09/02/2020 Allergies, Adverse Reactions, Alerts Substance Reaction Codes Entered Date Inactivated Date Status * NO KNOWN FOOD ALLERGIES Lepqldy7907/13/2023No Inactive DateActiveLISINOPRILRxNorm: 299818302/12/2020No Inactive DateActiveMetformin GBlFiqiqwg63/28/2020No Inactive DateActive* NO KNOWN ENVIRONMENTAL GQNKDBQQYQvcfpir05/27/2024No Inactive DateActive Problems Condition Codes Effective Dates Condition St atus Hemorrhoids ICD-10: K64.9 ICD-9: 455.611ctiveHyperlipidemia associated with type 2 diabetes mellitusICD-10: E11.69 ICD-9: 250.8011ctiveHypertensive heart disease without heart failure ICD-10: I11.9 ICD-9: 402.9011ctiveOnychogryposisICD-10: L60.2 ICD-9: 703.811ctiveStage 2 chronic 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ICD-10: E11.22 ICD-9: 250.4011ctiveType 2 diabetes mellitus with diabetic polyneuropathy, with long-term current use of insulinICD-10: E11.42 ICD-9: 250.6011ctiveBMI 60.0-69.9, adultICD-10: Z68.44 ICD-9: V85.4410ctiveDiabetic neuropathy associated with type 2 diabetes mellitusICD-10: E11.40 ICD-9: 250.6010ctiveLow back painICD-10: M54.50 ICD-9: 724.210ctiveParaparesis of both lower limbsICD-10: G82.20 ICD-9: 344.110/ctivePhysical deconditioningICD-10: R53.81 ICD-9: 799.310/ctivePVD (peripheral vascular disease)ICD-10: I73.9 ICD-9: 443.910ctiveAdvanced care planning - to document end of life iweitzgbwccGeollqc47/24/2024ctiveAdvance care planningICD-10: Z71.89 ICD-9: V65.4909ctiveAmputated toe of right footICD-10: S98.131A ICD-9: 895.009ctiveAnnual physical examICD-10: Z00.00 ICD-9: V70.009/ctiveCandidal intertrigoICD-10: B37.2 ICD-9: 112.309/ctiveConstipation by delayed colonic transitICD-10: K59.01 ICD-9: 564.0109/ctiveHistory of anemia due to CKDICD-10: N18.9 ICD-9: 585.909/ctiveHx of deep venous thrombosisICD-10: Z86.718 ICD-9: V12.5109/ctiveHypercoagulable stateICD-10: D68.59 ICD-9: 289.8109/ctiveHypokalemiaICD-10: E87.6 ICD-9: 276.809/ctiveLearning disabilityICD-10: F81.9 ICD-9: 315.209/ctiveLower extremity edemaICD-10: R60.0 ICD-9: 782.309/ctiveMajor depression, recurrentICD-10: F33.9 ICD-9: 296.3009/ctivePressure ulcer of left calf, unstageableICD-10: L89.890 ICD-9: 707.0909/ctiveReducible umbilical herniaICD-10: K42.9 ICD-9: 553.109/ctiveSeizure disorderICD-10: G40.909 ICD-9: 345.9009/ctiveVitamin D deficiencyICD-10: E55.9 ICD-9: 268.909/ctiveCallus of heelICD-10: L84 ICD-9: 25635/esolvedGout due to renal impairmentICD-10: M10.30 ICD-9: 274.1005/esolvedHyperhidrosis [...] tagICD-10: L91.8 ICD-9: 701.904/esolvedCoronary artery disease involving shinnecock coronary artery of shinnecock heart, angina presence unspecifiedICD-10: I25.10 ICD-9: 414.0102/ctiveInappropriate sexual behaviorICD-10: Z72.89 ICD-9: 312.8910/ctivePre-op evaluationICD-10: Z01.818 ICD-9: V72.8403/ctiveSecondary hypertensionICD-10: I15.9 ICD-9: 405.9903/3ActiveDepressionICD-10: F32.9 ICD-9: 06252/esolvedDVT (deep venous thrombosis)ICD-10: I82.409 ICD-9: 453.4009/esolvedEncounter for [...] to other viral communicable diseasesICD-10: Z20.828 ICD-9: V01.7902/2140LqlzqsykRgmhjqssDtfampn39/28/2020ActiveDiabetes mellitus Type 5Xybswfe97/28/2020ActiveAnemia in chronic kidney diseaseICD-10: D63.1 02/12/2020ResolvedHyperlipidemia, unspecifiedICD-10: E78.Resolved Medications Medication Codes Instructions Start Date Stop Date Status Fill Instructions nystatin 100,000 unit/gram topical powder RxNorm: 761643 Apply 1 Application Topical BID as needed abdominal/breast /groin folds 11/ Inactive chlorthalidone 25 mg tablet RxNorm: 452651 Take 1 Tablet(s) Oral QAM every morning 04/06/20 No Stop Date Active pregabalin 150 mg capsule RxNorm: 018756 Take 1 Capsule(s) Oral QHS every night at bedtime 03/31/20 Inactive Vascepa 1 gram capsule RxNorm: 0384456 Take 2 Capsule(s) Oral BID 03/30/20 Active rosuvastatin 40 mg tablet RxNorm: 667466 1 TAB ORALLY EVERY EVENING (DX:CORONARY ARTERY DISEASE) 03/28/20 No Stop Date Active venlafaxine ER 75 mg capsule,extended release 24 hr RxNorm: 945077 3 CAPS (225MG) ORALLY DAILY (DX: MOOD DISORDER) 03/28/20 No Stop Date Active pregabalin 100 mg capsule RxNorm: 435604 Take 1 Capsule(s) Oral QAM every morning 03/20/20 Inactive cholecalciferol (vitamin D3) 1,250 mcg (50,000 unit) capsule RxNorm: 177924 Take 1 Capsule(s) Oral QW once a [...] Insulin 100 unit/mL (3 mL) subcutaneous RxNorm: 1561450 Inject 40 Unit(s) Subcutaneous BID 03/07/20 025 Inactive Please dispense one month supply. Humulin R U-500 (Concentrated) Insulin 500 unit/mL subcutaneous soln RxNorm: 309636 Inject 100 Unit(s) Subcutaneous AC before meals [...] PRN) to be use with new Accu [place] meter 03/04/20 Inactive ok to substitute with any covered alternative test strip FreeStyle Chema 2 Sensor kit RxNorm: Use UD as directed 03/02/20 025 Inactive FreeStyle Chema 2 Sensor kit RxNorm: Use UD as directed 03/02/20 Inactive Pen Needle 30 gauge x 09/29 RxNorm: Pen(s) Use 1 needle as directed TID 03/02/20 Inactive nystatin 100,000 unit/gram topical powder RxNorm: 150924 Apply 1 Application Topical BID as needed [...] (Concentrated) Insulin 500 unit/mL subcutaneous soln RxNorm: 956111 Inject 100 Unit(s) Subcutaneous TID 02/17/20 24 024 Inactive Humulin R U-500 (Concentrated) Insulin 500 unit/mL subcutaneous soln RxNorm: 430325 Inject 100 Unit(s) Subcutaneous TID 02/10/20 24 024 Inactive Tusharaglar ZaPen U-100 Insulin 100 unit/mL (3 mL) subcutaneous RxNorm: 2103643 Inject 30 Unit(s) Subcutaneous BID 02/10/20 24 024 Inactive Please dispense one month supply. pregabalin 100 mg capsule RxNorm: 108001 Take 1 Capsule(s) Oral QAM every morning 02/07/20 024 Inactive isosorbide mononitrate ER 60 mg tablet,extended release 24 hr RxNorm: 241812 Take 1 Tablet(s) Oral QD 02/01/20 24 025 Active aripiprazole 15 mg tablet RxNorm: 416090 Take 1/2 Tablet(s) Oral QD 02/01/20 24 025 Active torsemide 20 mg tablet RxNorm: 413574 1 TAB ORALLY DAILY (DX: EDEMA) 01/27/20 No Stop Date Active potassium chloride ER 20 mEq tablet,extended release(part/cryst) RxNorm: 4368661 2 TABS (40MEQ) ORALLY TWICE DAILY (DX: HYPOKALEMIA) 01/27/20 24 025 Inactive cephalexin 500 mg capsule RxNorm: 933142 Take 1 Capsule(s) Oral QID 12/17/19 24 024 Inactive cephalexin 500 mg capsule RxNorm: 259782 Take 1 Capsule(s) Oral QID 12/17/19 24 024 Inactive acetaminophen 500 mg tablet RxNorm: 328706 (MAX APAP:4GM/24HR) Take 1 Tablet(s) Oral TID as needed for pain 12/10/19 24 024 Inactive torsemide 20 mg tablet RxNorm: 054578 Take 1 Tablet(s) Oral QD 10/26/19 24 025 Inactive potassium chloride ER 20 mEq tablet,extended release RxNorm: 021807 Take 2 Tablet(s) Oral BID 10/26/19 24 Inactive torsemide 20 mg tablet RxNorm: 343137 Take 1 Tablet(s) Oral QD 10/26/19 24 Inactive potassium chloride ER 20 mEq tablet,extended release RxNorm: 444560 Take 2 Tablet(s) Oral BID 10/26/19 24 024 Inactive Artificial Tears (PF) 0.1 %-0.3 % drops in a dropperette RxNorm: 099773 Apply 1-2 Drop(s) Both eyes BID as needed 09/28/19 24 Inactive erythromycin 5 mg/gram (0.5 %) eye ointment RxNorm: 224745 Apply 1 Application Both eyes QHS every night at bedtime Instill ~1 cm ribbon into affected eye 09/28/19 24 024 Inactive Artificial Tears (PF) 0.1 %-0.3 % drops in a dropperette RxNorm: 952467 Apply 1-2 Drop(s) Both eyes BID as needed 09/28/19 24 024 Inactive erythromycin 5 mg/gram (0.5 %) eye ointment RxNorm: 954500 Apply 1 Application Both eyes QHS every night at bedtime Instill ~1 cm ribbon into affected eye 09/28/19 24 Inactive acetaminophen 500 mg tablet RxNorm: 696988 (MAX APAP:4GM/24HR) Take 1 Tablet(s) Oral TID as needed for pain 09/24/19 024 Inactive carvedilol 25 mg tablet RxNorm: 614996 Take 1 Tablet(s) Oral QD 09/08/19 24 No Stop Date Active pregabalin 100 mg capsule RxNorm: 459528 Take 1 Capsule(s) Oral QAM every morning 09/07/19 24 024 Inactive ezetimibe 10 mg tablet RxNorm: 804267 Take 1 Tablet(s) Oral QD 07/13/19 24 025 Inactive bisacodyl 10 mg rectal suppository RxNorm: 389756 Insert 1 Suppository Rectal QD as needed 07/13/19 24 No Stop Date Active polyethylene glycol 3350 17 gram/dose oral powder RxNorm: 421037 Take 17 Gram(s) Oral BID as needed mix in 4-8ox water 07/13/19 24 025 Inactive ketoconazole 2 % shampoo RxNorm: 811251 Apply 1 Application Topical UD as directed 07/13/19 No Stop Date Active Ozempic 1 mg/dose (4 mg/3 mL) subcutaneous pen injector RxNorm: 2040575 Inject 1 Milligram(s) Subcutaneous QW once a week 07/13/19 No Stop Date Active Guaifenesin AC 10 mg-100 mg/5 mL oral liquid RxNorm: 190093 Take 10 Milliliter(s) Oral Q4H every four hours as needed 07/13/19 No Stop Date Active ammonium lactate 12 % topical cream RxNorm: 609369 Apply 1 Application Topical BID 07/13/19 24 025 Inactive hydrocortisone 2.5 % topical cream RxNorm: 871620 Apply 1 Application Topical BID as needed 07/13/19 No Stop Date Active rosuvastatin 20 mg sprinkle capsule RxNorm: 8002102 Take 1 Capsule(s) Oral QD 07/13/19 24 025 Inactive rosuvastatin 40 mg tablet RxNorm: 084256 Take 1 Tablet(s) Oral QPM every evening 07/13/19 24 024 Inactive aripiprazole 15 mg tablet RxNorm: 706808 Take 1/2 Tablet(s) Oral QD 07/13/19 24 024 Inactive isosorbide mononitrate ER 60 mg tablet,extended release 24 hr RxNorm: 508279 Take 1 Tablet(s) Oral QD 07/13/19 24 024 Inactive Vascepa 1 gram capsule RxNorm: 2756188 Take 2 Capsule(s) Oral BID 07/13/19 24 024 Inactive venlafaxine ER 75 mg capsule,extended release 24 hr RxNorm: 187167 Take 3 Capsule(s) Oral QD 07/13/19 24 024 Inactive Basagldestin Enrique U-100 Insulin 100 unit/mL (3 mL) subcutaneous RxNorm: 6373154 Inject 30U SubQ twice daily 07/07/19 24 024 Inactive Please dispense one month supply. Basagldestin EugeneikPen U-100 Insulin 100 unit/mL (3 mL) subcutaneous RxNorm: 9070223 Inject 30U SubQ twice daily 07/07/19 24 024 Inactive Please dispense one month supply. pregabalin 150 mg capsule RxNorm: 028459 Take 1 Capsule(s) Oral QHS every night at bedtime 07/05/19 24 024 Inactive pregabalin 150 mg capsule RxNorm: 729826 Take 1 Capsule(s) Oral QHS every night at bedtime 07/05/19 24 024 Inactive polyethylene glycol 3350 17 gram/dose oral powder RxNorm: 426469 Take 1 Packet Oral QD as needed (1 packet = 17g) mix with 4-8oz of liquid 06/15/19 24 024 Inactive bisacodyl 10 mg rectal suppository RxNorm: 308411 Insert one suppository per rectum once daily as needed for constipation 06/15/19 24 024 Inactive bisacodyl 10 mg rectal suppository RxNorm: 686696 Insert one suppository per rectum once daily as needed for constipation 06/15/19 24 024 Inactive pregabalin 100 mg capsule RxNorm: 465378 Take 1 Capsule(s) Oral QAM every morning 04/27/20 23 024 Inactive Levemir FlexPen 100 unit/mL (3 mL) solution subcutaneous insulin pen RxNorm: 474718 Inject 30 Unit(s) Subcutaneous BID 04/27/20 23 024 Inactive rosuvastatin 40 mg tablet RxNorm: 965975 Take 1 Tablet(s) Oral QPM every evening 04/16/20 23 024 Inactive D/C rosuvastatin 20mg venlafaxine ER 75 mg capsule,extended release 24 hr RxNorm: 986489 Take 3 Capsule(s) Oral QD 04/14/20 23 023 Inactive pregabalin 100 mg capsule RxNorm: 080033 Take 1 Capsule(s) Oral QAM every morning [...] strip clotrimazole 1 % topical cream RxNorm: 737882 Take apply topically to abdominal folds twice daily for 14 days 03/12/20 23 024 Inactive Ozempic 1 mg/dose (4 mg/3 mL) subcutaneous pen injector RxNorm: 4472062 Inject 1 Milligram(s) Subcutaneous QW once a week 03/11/20 023 Inactive rosuvastatin 20 mg tablet RxNorm: 713973 Take 1 Tablet(s) Oral QD 02/26/20 23 023 Inactive d/c pravastatin 80mg Ozempic 1 mg/dose (4 mg/3 mL) subcutaneous pen injector RxNorm: 2905980 Inject 1 Milligram(s) Subcutaneous QW once a week 02/20/20 23 023 Inactive pregabalin 150 mg capsule RxNorm: 452482 Take 1 Capsule(s) Oral HS at bed time 02/19/20 23 023 Inactive pregabalin 100 mg capsule RxNorm: 443811 Take 1 Capsule(s) Oral QAM every morning 02/18/20 23 023 Inactive venlafaxine ER 75 mg capsule,extended release 24 hr RxNorm: 801081 Take 3 Capsule(s) Oral QD 02/04/20 23 023 Inactive FreeStyle Chema 2 Sensor kit RxNorm: use as directed 02/04/20 23 023 Inactive FreeStyle Chema 2 Sensor kit RxNorm: use as directed 02/04/20 23 024 Inactive fluconazole 150 mg tablet RxNorm: 911928 Take 1 Tablet(s) Oral on day 3 and on day 6 02/03/20 23 024 Inactive venlafaxine ER 150 mg capsule,extended release 24 hr RxNorm: 138311 Take 1 Capsule(s) Oral QD 02/03/20 23 023 Inactive chlorthalidone 25 mg tablet RxNorm: 076804 Take 1 Tablet(s) Oral QAM every morning 02/03/20 23 024 Inactive acetaminophen 500 mg tablet RxNorm: 716042 1 TABLET ORALLY 3 TIMES DAILY (MAX APAP:4GM/24HR) 12/15/19 23 023 Inactive clotrimazole 1 % topical cream RxNorm: 206840 apply 1g topically to top of feet and in between toes BID 12/09/19 23 025 Inactive potassium chloride ER 20 mEq tablet,extended release RxNorm: 975428 Take 1 Tablet(s) Oral BID 12/09/19 23 024 Inactive d/c 20mEq once daily (sent from hospital) nystatin 100,000 unit/gram topical powder RxNorm: 541178 APPLY TO AFFECTED AREAS TOPICALLY 2 TIMES DAILY 11/21/19 23 023 Inactive Nystop 100,000 unit/gram topical powder RxNorm: 511991 Apply to abd folds, under breasts and L side of groin Topical BID x 14 days, then BID PRN 11/20/19 23 023 Inactive dx: yeast dermatitis [place] Ultra Strength 4 %-30 %-10 % topical cream RxNorm: 065117 Apply 1 Gram(s) Topical QID PRN to feet and legs for neuropathic pain 11/11/19 23 024 Inactive clotrimazole 1 % topical cream RxNorm: 480789 Apply 1/2 Gram(s) Topical BID Apply to affected areas of groin, periarea, and abdominal topically 2 times daily 11/10/19 23 023 Inactive hydrocortisone 2.5 % topical cream RxNorm: 051853 Apply 1/2 Gram(s) Topical BID as needed 11/10/19 23 024 Inactive Levemir FlexPen 100 unit/mL (3 mL) solution subcutaneous insulin pen RxNorm: 456533 Inject 30 Unit(s) Subcutaneous BID 10/07/19 23 023 Inactive Humulin R U-500 (Concentrated) Insulin 500 unit/mL subcutaneous soln RxNorm: 254046 Inject 100 Unit(s) Subcutaneous TID 10/07/19 024 Inactive Ozempic 0.25 mg or 0.5 mg (2 mg/3 mL) subcutaneous pen injector RxNorm: 7727430 Inject 1/2 Milligram(s) Subcutaneous QW once a week 10/07/19 024 Inactive aripiprazole 15 mg tablet RxNorm: 145043 1/2 TAB (7.5MG) ORALLY DAILY (DX:MAJOR DEPRESSIVE DISORDER) 09/23/19 023 Inactive Accu-Chek Guide test strips RxNorm: Use 1 Test Strip QID 09/15/19 023 Inactive ok to substitute with any covered alternative test strip Lancets,Thin 28 gauge RxNorm: Use 1 as directed QID 09/15/19 023 Inactive torsemide 20 mg tablet RxNorm: 211855 Take 1 Tablet(s) Oral BID 09/09/19 024 Inactive d/c once daily dosing carvedilol 25 mg tablet RxNorm: 268039 Take 1 Tablet(s) Oral QD 08/25/19 23 024 Inactive pregabalin 150 mg capsule RxNorm: 977040 1 Capsule(s) Oral HS at bed time 08/18/19 023 Inactive pregabalin 100 mg capsule RxNorm: 091926 1 Capsule(s) Oral QAM every morning 08/18/19 023 Inactive carvedilol 25 mg tablet RxNorm: 143044 1 Tablet(s) Oral QD 07/28/19 023 Inactive lisinopril 20 mg tablet RxNorm: 217523 Give 1 Tablet(s) Oral QD 07/28/19 23 023 Inactive Lyrica 150 mg capsule RxNorm: 073757 Take 1 Capsule(s) Oral QHS every night at bedtime 07/19/19 023 Inactive d/c 100mg dose Diflucan 150 mg tablet RxNorm: 468485 Take 1 Tablet(s) Oral QD repeat on day 3 and 6 07/19/19 23 023 Inactive pregabalin 100 mg capsule RxNorm: 917148 Take 1 Capsule(s) Oral QAM every morning 07/19/19 23 023 Inactive gatifloxacin 0.5 % eye drops RxNorm: 613755 Instill 1 Drop(s) as directed TID Instill 1 drop in to affected eye(s) starting 1 day prior to surgery and continue until gone (do not exceed 4 weeks). 07/13/19 23 023 Inactive carvedilol 25 mg tablet RxNorm: 561024 2 Tablet(s) Oral BID 07/13/19 23 023 Inactive Humulin R Regular U-100 Insulin 100 unit/mL injection solution RxNorm: 918462 85 Unit(s) Injection TID 07/13/19 23 023 Inactive ketorolac 0.5 % eye drops RxNorm: 902454 Instill 1 Drop(s) as directed QID Instill 1 drop into affected eye(s) 4 times daily starting 1 day prior to surgery and continue until gone (do not exceed 4 weeks). 07/13/19 023 Inactive Diflucan 150 mg tablet RxNorm: 702227 Take 1 Tablet(s) Oral QD repeat on day 3 and 6 06/30/19 23 023 Inactive Accu-Chek Guide test strips RxNorm: Use 1 Test Strip QID Use 1 test strip to monitor blood glucose 4 times daily and as needed. Dx:E11.42. 06/23/19 23 023 Inactive ok to substitute with any covered alternative test strip dextromethorphan-gu aifenesin 10 mg-100 mg/5 mL oral liquid RxNorm: 397041 Take 10 Milliliter(s) Oral every 4 hours as needed for cough 06/19/19 23 023 Inactive dextromethorphan-gu aifenesin 10 mg-100 mg/5 mL oral liquid RxNorm: 412986 Take 10 Milliliter(s) Oral every 4 hours as needed for cough 06/19/19 23 023 Inactive Lyrica 150 mg capsule RxNorm: 929910 Take 1 Capsule(s) Oral QHS every night at bedtime 06/18/19 23 023 Inactive d/c 100mg dose aripiprazole 15 mg tablet RxNorm: 757398 1/2 TAB (7.5MG) ORALLY DAILY (DX:MAJOR DEPRESSIVE DISORDER) 06/05/19 023 Inactive pregabalin 100 mg capsule RxNorm: 397069 1 Capsule(s) Oral QAM every morning 06/02/19 023 Inactive Banophen 50 mg capsule RxNorm: 1087980 Take 1 Capsule(s) Oral Q6H every 6 hours as needed 05/19/19 No Stop Date Active Novolog Flexpen U-100 Insulin aspart 100 unit/mL (3 mL) subcutaneous RxNorm: 9460216 Inject 10 Unit(s) Subcutaneous QHS every night at bedtime with nighttime snack 04/08/20 022 Inactive Novolog Flexpen U-100 Insulin aspart 100 unit/mL (3 mL) subcutaneous RxNorm: 8282892 Inject 42 Unit(s) Subcutaneous TID in addition to sliding scale 04/08/20 022 Inactive d/c 36u albuterol sulfate HFA 90 mcg/actuation aerosol inhaler RxNorm: 4905674 Take 2 Puff(s) Inhalation Q4H every four hours as needed as needed for SOB, cough, or wheezing 04/07/20 030 Active Banophen 50 mg capsule RxNorm: 4309935 Take 1 Capsule(s) Oral Q6H every 6 hours as needed 04/06/20 023 Inactive diphenhydramine 50 mg tablet RxNorm: 9347262 Take 1 Tablet(s) Oral Q6H every 6 hours as needed 04/06/20 22 022 Inactive diphenhydramine 50 mg tablet RxNorm: 8818191 1 Tablet(s) Oral Q6H every 6 hours as needed 04/06/20 22 022 Inactive Abilify 15 mg tablet RxNorm: 054727 1/2 Tablet(s) Oral QD 03/10/20 22 023 Inactive Shingrix (PF) 50 mcg/0.5 mL intramuscular suspension, kit RxNorm: 1613252 Administer 1/2 Milliliter(s) Intramuscular QD one time shingrix step 2 ( step 1 given 11/04/21) WITH needle - Nursing please administer upon arrival and once administered post a bridge message with date of administration, sanitarian aide, expiration date, and lot# so we can update [facility] 02/18/20 22 022 Inactive dispense with needle Shingrix (PF) 50 mcg/0.5 mL intramuscular suspension, kit RxNorm: 3084093 Administer 1/2 Milliliter(s) Intramuscular QD one time shingrix step 2 ( step 1 given 11/04/21) WITH needle - Nursing please administer upon arrival and once administered post a bridge message with date of administration, sanitarian aide, expiration date, and lot# so we can update [facility] 02/18/20 22 022 Inactive dispense with needle polyethylene glycol 3350 17 gram/dose oral powder RxNorm: 381967 Take 17=1 capful Gram(s) Oral QD mix with 4-8oz of liquid 01/08/20 22 025 Inactive take this in addition to BID prn order Lyrica 100 mg capsule RxNorm: 079567 Take 1 Capsule(s) Oral QAM every morning 01/08/20 22 022 Inactive d/c 50mg dose acetaminophen 500 mg tablet RxNorm: 311225 Take 1 Tablet(s) Oral TID 01/08/20 22 022 Inactive d/c PRN order Lyrica 150 mg capsule RxNorm: 216101 Take 1 Capsule(s) Oral QHS every night at bedtime 01/08/20 22 023 Inactive d/c 100mg dose Abilify 5 mg tablet RxNorm: 722927 Take 1 Tablet(s) Oral QD take 1 tab po QD #30 refill 5 dx: MDD 12/12/19 22 022 Inactive Abilify 5 mg tablet RxNorm: 645428 Take 1 Tablet(s) Oral QD take 1 tab po QD #30 refill 5 dx: MDD 12/12/19 22 022 Inactive Novolog Flexpen U-100 Insulin aspart 100 unit/mL (3 mL) subcutaneous RxNorm: 3921301 Inject 42 Unit(s) Subcutaneous TID in addition to sliding scale 12/10/19 22 022 Inactive d/c 36u chlorthalidone 25 mg tablet RxNorm: 681188 Take 1 Tablet(s) Oral QAM every morning 12/10/19 22 023 Inactive pregabalin 50 mg capsule RxNorm: 931267 Take 1 Capsule(s) Oral QAM every morning 11/12/19 22 022 Inactive tetanus-diphtheria toxoids-Td 2 Lf unit-2 Lf unit/0.5 mL IM suspension RxNorm: 139 Take 0.5 Miscellaneous Intramuscular 11/12/19 22 022 Inactive need tdap - nursing to administer upon arrival pregabalin 50 mg capsule RxNorm: 347600 Take 1 Capsule(s) Oral QAM every morning 10/16/19 22 022 Inactive pregabalin 50 mg capsule RxNorm: 912795 Take 1 Capsule(s) Oral QAM every morning 10/16/19 22 022 Inactive pregabalin 50 mg capsule RxNorm: 864644 1 Capsule(s) Oral QAM every morning 10/15/19 22 022 Inactive Shingrix (PF) 50 mcg/0.5 mL intramuscular suspension, kit RxNorm: 2588080 Administer 1/2 Milliliter(s) Intramuscular one time Nursing please administer upon arrival and once administered post a bridge message with date of administration, sanitarian aide, expiration date, and lot# so we can update [facility]. 10/09/19 22 022 Inactive shingrix step 1 Shingrix (PF) 50 mcg/0.5 mL intramuscular suspension, kit RxNorm: 2553878 Administer 1/2 Milliliter(s) Intramuscular one time Nursing please administer upon arrival and once administered post a bridge message with date of administration, sanitarian aide, expiration date, and lot# so we [...] aspart 100 unit/mL (3 mL) subcutaneous RxNorm: 7204057 Inject 10 Unit(s) Subcutaneous QHS every night at bedtime with nighttime snack 10/08/19 22 022 Inactive Shingrix (PF) 50 mcg/0.5 mL intramuscular suspension, kit RxNorm: 0785773 ADMINISTER 2-DOSE SERIES PER CDC GUIDELINES 10/08/19 22 Active Shingrix (PF) 50 mcg/0.5 mL intramuscular suspension, kit RxNorm: 0360648 ADMINISTER 2-DOSE SERIES PER CDC GUIDELINES 10/08/19 22 Inactive Novolog Flexpen U-100 Insulin aspart 100 unit/mL (3 mL) subcutaneous RxNorm: 1927168 Inject 36 Unit(s) Subcutaneous TID in addition to sliding scale 10/08/19 Inactive cholecalciferol (vitamin D3) 1,250 mcg (50,000 unit) capsule RxNorm: 445427 Take 1 Capsule(s) Oral QW once a week 10/08/19 22 024 Inactive Novofine Autocover 30 gauge x 1/3 needle RxNorm: Use 1 Miscellaneous UD as directed Use 1 needle as directed to administer insulin 5 times a day Dx:E11.42. 10/03/19 22 022 Inactive ok to substitute with any covered alternative pen needle benzoyl peroxide 10 % topical cleanser RxNorm: 748712 Apply 1 Application Topical QD apply to face, wash rinse and dry once daily (may change to QOD if drying) 08/19/19 22 022 Inactive (%covered by insurance) #60ml refill 11 dx: acne benzoyl peroxide 10 % topical cleanser RxNorm: 757309 Apply 1 Application Topical QD apply to face, wash rinse and dry once daily (may change to QOD if drying) 08/19/19 22 022 Inactive (%covered by insurance) #60ml refill 11 dx: acne benzoyl peroxide 10 % topical cleanser RxNorm: 425897 Apply 1 Application Topical QD apply to face, wash rinse and dry once daily (may change to QOD if drying) 08/19/19 22 022 Inactive (%covered by insurance) #60ml refill 11 dx: acne Lyrica 50 mg capsule RxNorm: 213309 Take 1 Capsule(s) Oral QAM every morning Take 1 capsule by mouth once daily 08/19/19 22 022 Inactive benzoyl peroxide 10 % topical cleanser RxNorm: 704618 Apply 1 Application Topical QD apply to face, wash rinse and dry once daily (may change to QOD if drying) 08/19/19 22 022 Inactive (%covered by insurance) #60ml refill 11 dx: acne Lyrica 100 mg capsule RxNorm: 965832 Take 1 Capsule(s) Oral QHS every night at bedtime Take 1 capsule by mouth once daily at bedtime 08/19/19 22 022 Inactive Lyrica 100 mg capsule RxNorm: 916119 Take 1 Capsule(s) Oral QHS every night at bedtime Take 1 capsule by mouth once daily at bedtime 08/16/19 22 022 Inactive Lyrica 50 mg capsule RxNorm: 298128 Take 1 Capsule(s) Oral QAM every morning Take 1 capsule by mouth once daily 08/16/19 22 022 Inactive Levemir FlexTouch U-100 Insulin 100 unit/mL (3 mL) subcutaneous pen RxNorm: 617898 Inject 86 Unit(s) Subcutaneous BID 08/05/19 22 022 Inactive d/c 83units BID Lyrica 100 mg capsule RxNorm: 233793 Take 1 Capsule(s) Oral QHS every night at bedtime Take 1 capsule by mouth once daily at bedtime 07/14/19 22 022 Inactive Lyrica 50 mg capsule RxNorm: 314676 Take 1 Capsule(s) Oral QAM every morning Take 1 capsule by mouth once daily 07/14/19 22 022 Inactive Levemir FlexTouch U-100 Insulin 100 unit/mL (3 mL) subcutaneous pen RxNorm: 965821 Inject 83 Unit(s) Subcutaneous BID 07/08/19 22 [...] test strip hydralazine 50 mg tablet RxNorm: 731903 Take 1 Tablet(s) Oral QID 05/05/20 21 022 Inactive venlafaxine ER 225 mg tablet,extended release 24 hr RxNorm: 965432 Take 1 Tablet(s) Oral QD 05/05/20 21 021 Inactive venlafaxine ER 225 mg tablet,extended release 24 hr RxNorm: 477950 Take 1 Tablet(s) Oral QD 05/05/20 21 022 Inactive isosorbide mononitrate ER 30 mg tablet,extended release 24 hr RxNorm: 952326 Take 1 Tablet(s) Oral QD 05/05/20 024 Inactive hydralazine 50 mg tablet RxNorm: 199825 Take 1 Tablet(s) Oral QID 05/05/20 21 021 Inactive aspirin 81 mg tablet,delayed release RxNorm: 868355 Take 1 Tablet(s) Oral QD 03/31/20 022 Inactive Vitamin D2 1,250 mcg (50,000 unit) capsule RxNorm: 1000227 Take 1 Capsule(s) Oral QW once a week x 12 weeks 03/31/20 022 Inactive Vitamin D2 1,250 mcg (50,000 unit) capsule RxNorm: 5701792 Take 1 Capsule(s) Oral QW once a week 03/31/20 021 Inactive Zetia 10 mg tablet RxNorm: 859757 Take 1 Tablet(s) Oral QD 03/31/20 024 Inactive Zetia 10 mg tablet RxNorm: 972620 Take 1 Tablet(s) Oral QD 03/31/20 021 Inactive hydralazine 25 mg tablet RxNorm: 220766 Take 1 Tablet(s) Oral QID 03/31/20 021 Inactive hydralazine 25 mg tablet RxNorm: 910302 Take 1 Tablet(s) Oral QID 03/31/20 021 Inactive hydralazine 10 mg tablet RxNorm: 150268 Take 1 Tablet(s) Oral QID 03/03/20 021 Inactive cephalexin 500 mg tablet RxNorm: 478761 Take 1 Tablet(s) Oral QID 02/27/20 021 Inactive cephalexin 500 mg tablet RxNorm: 328137 Take 1 Tablet(s) Oral QID 02/27/20 021 Inactive lisinopril 40 mg tablet RxNorm: 592001 Take 1 Tablet(s) Oral QD 02/11/20 21 023 Inactive Eliquis 5 mg tablet RxNorm: 3570802 Take 1 Tablet(s) Oral BID 01/05/20 21 025 Inactive Eliquis 5 mg tablet RxNorm: 9840922 Take 2 Tablet(s) Oral QD 01/01/20 21 021 Inactive Lyrica 50 mg capsule RxNorm: 502692 Take 1 Capsule(s) Oral QAM every morning 12/24/19 21 021 Inactive Lyrica 100 mg capsule RxNorm: 298606 Take 1 Capsule(s) Oral QHS every night at bedtime 12/24/19 21 021 Inactive clotrimazole 1 % topical cream RxNorm: 685004 Apply to right foot and toes Topical BID 12/04/19 21 023 Inactive metoprolol succinate ER 200 mg tablet,extended release 24 hr RxNorm: 077825 Take 1 Tablet(s) Oral QD 12/04/19 21 023 Inactive ciprofloxacin 500 mg tablet RxNorm: 425022 Take 1 Tablet(s) Oral QD 11/30/19 21 021 Inactive DX ofloxacin otic drops Accu-Chek Guide test strips RxNorm: USE 1 TO CHECK GLUCOSE 4 TIMES DAILY AND NEEDED 11/15/19 21 023 Inactive Blood Glucose Test strips RxNorm: Use 1 Test Strip QID at PRN 11/05/19 21 023 Inactive E11.42 lisinopril 30 mg tablet RxNorm: 990154 Take 1 Tablet(s) Oral QD 10/30/19 021 Inactive lisinopril 20 mg tablet RxNorm: 610919 Take 1 Tablet(s) Oral QD 10/23/19 21 021 Inactive lisinopril 20 mg tablet RxNorm: 571199 Take 1 Tablet(s) Oral QD 10/23/19 21 021 Inactive lisinopril 10 mg tablet RxNorm: 773126 Take 1 Tablet(s) Oral QD 10/02/19 21 021 Inactive icosapent ethyl 1 gram capsule RxNorm: 6542295 Take 2 Capsule(s) (2 gm) Oral BID with meals 09/12/19 21 024 Inactive Okay to dispense one 2gm tab if you have that available. icosapent ethyl 1 gram capsule RxNorm: 4331535 Take 2 Capsule(s) Oral BID 09/12/19 21 021 Inactive Okay to dispense one 2gm tab if you have that available. amlodipine 10 mg tablet RxNorm: 928193 Take 1 Tablet(s) Oral QD 09/04/19 21 021 Inactive aspirin 81 mg tablet,delayed release RxNorm: 661544 Take 1 Tablet(s) Oral QD 09/04/19 21 021 Inactive Levemir FlexTouch U-100 Insulin 100 unit/mL (3 mL) subcutaneous pen RxNorm: 820230 Inject 150 Unit(s) Subcutaneous BID 09/04/19 21 022 Inactive venlafaxine ER 150 mg tablet,extended release 24 hr RxNorm: 524836 Take 1 Tablet(s) Oral QD 09/04/19 21 021 Inactive clotrimazole-betame thasone 1 %-0.05 % topical cream RxNorm: 165242 Apply to rash on red area on left abdomen/chest Topical BID 08/10/19 21 021 Inactive amlodipine 5 mg tablet RxNorm: 922022 Take 1 Tablet(s) Oral QD 07/31/19 021 Inactive cephalexin 500 mg tablet RxNorm: 250732 Take 1 Tablet(s) Oral BID BID - Twice Daily 07/31/19 21 021 Inactive Start 08/01/20 pantoprazole 40 mg tablet,delayed release RxNorm: 484373 Take 1 Tablet(s) Oral QAM every morning 07/08/19 025 Inactive senna 8.6 mg tablet RxNorm: 205730 Take 1 Tablet(s) Oral QD 07/08/19 025 Inactive carbamazepine 200 mg tablet RxNorm: 534330 Take 1 Tablet(s) Oral BID 07/08/19 21 025 Inactive clopidogrel 75 mg tablet RxNorm: 218706 Take 1 Tablet(s) Oral QD 07/08/19 21 021 Inactive Blood Glucose Test strips RxNorm: Use 1 Test Strip QID at PRN 07/08/19 21 021 Inactive E11.42 Novolog Flexpen U-100 Insulin aspart 100 unit/mL (3 mL) subcutaneous RxNorm: 2234528 Administer per sliding scale Milliliter(s) Subcutaneous TID 151-200: 10 u; 201-250: 20 u; 251-300: 30 u; 301-350: 40 u; 351-400: 50 u. 07/08/19 022 Inactive lisinopril 5 mg tablet RxNorm: 756051 Take 1 Tablet(s) Oral QD 07/08/19 021 Inactive Novolog Flexpen U-100 Insulin aspart 100 unit/mL (3 mL) subcutaneous RxNorm: 5800451 Inject 85 Unit(s) Subcutaneous TID 07/08/19 022 Inactive pravastatin 80 mg tablet RxNorm: 630291 Take 1 Tablet(s) Oral QHS every night at bedtime 07/08/19 023 Inactive clotrimazole 1 % topical cream RxNorm: 789374 Apply to bilateral groin areas Topical BID 07/08/19 022 Inactive metoprolol succinate ER 200 mg tablet,extended release 24 hr RxNorm: 329951 Take 1 Tablet(s) Oral QD 07/08/19 021 Inactive Vitamin D3 25 mcg (1,000 unit) tablet RxNorm: 081619 Take 1 Tablet(s) Oral QD 07/08/19 021 Inactive isosorbide dinitrate 30 mg tablet RxNorm: 492763 Take 1 Tablet(s) Oral QD 07/08/19 021 Inactive Levemir FlexTouch U-100 Insulin 100 unit/mL (3 mL) subcutaneous pen RxNorm: 718620 Inject 140 Unit(s) Subcutaneous BID 07/08/19 021 Inactive torsemide 20 mg tablet RxNorm: 503289 Take 1 Tablet(s) Oral QD 07/08/19 023 Inactive venlafaxine 75 mg tablet RxNorm: 635002 Take 1 Tablet(s) Oral QD 07/08/19 021 Inactive acetaminophen 500 mg tablet RxNorm: 733558 Take 1 Tablet(s) Oral TID as needed for headache 06/18/19 21 021 Inactive acetaminophen 500 mg tablet RxNorm: 856977 Take 1 Tablet(s) Oral TID as needed for headache 06/18/19 21 021 Inactive Lyrica 100 mg capsule RxNorm: 021425 Take 1 Capsule(s) Oral QHS every night at bedtime 06/11/19 21 021 Inactive Lyrica 50 mg capsule RxNorm: 466756 Take 1 Capsule(s) Oral QAM every morning 06/10/19 21 021 Inactive hydrocortisone 2.5 % topical cream RxNorm: 086615 Apply to bilateral groin creases Topical BID 05/15/20 20 021 Inactive clotrimazole 1 % topical cream RxNorm: 065326 Apply to bilateral groin areas Topical BID 05/15/20 20 021 Inactive Lyrica 50 mg capsule RxNorm: 258818 Take 1 Capsule(s) Oral QAM every morning 05/14/20 20 020 Inactive Lyrica 100 mg capsule RxNorm: 304689 Take 1 Capsule(s) Oral QHS every night [...] Inactive Nystop 100,000 unit/gram topical powder RxNorm: 381537 Apply to abd folds, under breasts and L side of groin Topical BID x 14 days, then BID PRN 04/08/20 20 11/23/2 020 Inactive dx: yeast dermatitis Lyrica 100 mg capsule RxNorm: 284025 Take 1 Capsule(s) Oral QHS every night at bedtime 03/13/20 20 Inactive Lyrica 50 mg capsule RxNorm: 047863 Take 1 Capsule(s) Oral QAM every morning 03/13/20 20 Inactive ketoconazole 2 % shampoo RxNorm: 120154 Apply Topical two times a week with showers 03/11/20 Inactive cholecalciferol (vitamin D3) 50 mcg (2,000 unit) tablet RxNorm: 450935 Take 1 Tablet(s) Oral QD 03/11/20 Inactive Zetia 10 mg tablet RxNorm: 173332 Take 1 Tablet(s) Oral QD 03/07/20 20 021 Inactive Zetia 10 mg tablet RxNorm: 443620 Take 1 Tablet(s) Oral QD 03/07/20 Inactive Lyrica 50 mg capsule RxNorm: 724763 Take 1 Capsule(s) Oral QAM every morning 02/15/20 20 Inactive Lyrica 100 mg capsule RxNorm: 714955 Take 1 Capsule(s) Oral QHS every night at bedtime 02/15/20 20 Inactive Lyrica 100 mg capsule RxNorm: 479543 Take 1 Capsule(s) Oral QHS every night at bedtime 02/15/20 20 Inactive Lyrica 50 mg capsule RxNorm: 309013 Take 1 Capsule(s) Oral QAM every morning 02/15/20 20 Inactive metoprolol succinate ER 200 mg tablet,extended release 24 hr RxNorm: 909902 Take 1 Tablet(s) Oral QD 08/12/19 025 Inactive loperamide 2 mg capsule RxNorm: 898461 Take 1 Capsule(s) Oral QID as needed 09/06/19 025 Inactive hydralazine 50 mg tablet RxNorm: 525862 Take 1 Tablet(s) Oral QID 08/12/19 025 Inactive Soft Touch Lancets RxNorm: miscellaneous 03/04/20 24 025 Inactive venlafaxine ER 75 mg capsule,extended release 24 hr RxNorm: 246181 Take 3 Capsule(s) Oral QD 06/12/19 22 023 Inactive polyethylene glycol 3350 17 gram/dose oral powder RxNorm: 633115 Take 17=1 capful Gram(s) Oral BID as needed mix with 4-8oz of liquid 06/12/19 22 024 Inactive icosapent ethyl 1 gram capsule RxNorm: 4835455 Take 2 Capsule(s) (2 gm) Oral BID with meals 10/07/19 23 023 Inactive Okay to dispense one 2gm tab if you have that available. Levemir FlexTouch U-100 Insulin 100 unit/mL (3 mL) subcutaneous pen RxNorm: 236033 Inject 80 Unit(s) Subcutaneous BID 07/14/19 23 023 Inactive Novolog Flexpen U-100 Insulin aspart 100 unit/mL (3 mL) subcutaneous RxNorm: 6403883 Insert 30 Unit(s) Subcutaneous TID with meals [...] Procedures Procedure Codes Date Toenail Debridement CPT-4: 96838 04/11/2024 Vital Signs Date Vital 04/11/2024 Blood Pressure 1: 128/82 Code: 8480-6 Heart Rate 1: 75 bpm Code: 8867-4 SpO2: 96% Temperature: 36.7 (C) / 98.0 (F) Functional Status Functional / Cognitive Codes [...] Performer Location Location Address Codes Cristiano e ([id number]) Home or Residence Vi sit Est Pt - Moderate Level, 40 mins Diagnosis: Hyperlipidemia associated with type 2 diabetes mellitus[ICD10: E11.69] Diagnosis: Type 2 diabetes mellitus with diabetic polyneuropathy, with long-term current use of insulin[ICD10: E11.42] Diagnosis: Stage 2 chronic 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[ICD10: E11.22] Diagnosis: Hypertensive heart disease without heart failure[ICD10: I11.9] Diagnosis: Hemorrhoids[ICD10: K64.9] Diagnosis: Onychogryposis[ICD10: L60.2]Harrison [place] on [id number] [place] [id number]: [id number] Plan of Care Planned Activity Notes Codes Status Date Referral: [facility] [address] [facility] [place]ReferralAppointment Lhioinzxk90/06/2025Referral: [facility]/Endocrinology WPtel: [address] [facility] [address] [id number] USReferralNo Records Cyqlkmmp09/24/2025ppointment: Harrison Munson WPtel: [address] [facility] [address] [id number] USAWV02/08/2024ppointment: Harrison Munson WPtel: [address] [facility] 300 [id number] USF/U001/11/2024ppointment: Daniela Clarkfer WPtel: [address] [facility] 300 [id number] [facility] Psych Follow Up12/09/2022ppointment: Tapan Shirley WPtel: [address] [facility] 300 [id number] USTCM10/26/2022Referral: [facility] WPtel: [address], [address] [id number] USReferralRecords Ixyrusgq06/08/2023ppointment: Tapan Shirley WPtel: [address] [facility] 300 [id number] USF/U008/11/2022ppointment: Tapan Shirley WPtel: [address] [facility] 300 [id number] USF/U007/14/2022ppointment: Tapan Shirley WPtel: [address] [facility] 300 [id number] USF/U002/10/2022eferral: [facility] WPtel: [address] [id number] PSVojgqyvbRbcwuooys17/12/2022Referral: General CardiologyReferralCompleted 1Referral: General PsychologistReferralClosedReferral: General PsychiatristReferralPatient/Family [...] Sister Jyotsna involved in his care cell# [phone] Guardian: Giulia (tapan met in person 09/01/21), [...] appointment 05.26.2024 with Jessa Webster MD at [facility]. Start Pioglitazone 15 mg QD. Stop Basaglar insulin. Increase Ozempic 2 mg once wkly. Continue Humalin R U-500 100 units with meals TID. FOLLOW UP 2 MONTHS. If BG >400 add 50 units to next scheduled dose of Humalin R U 500 insulin 06/12/2024 Hypertensive heart disease w [facility] heart failure Significant anti-hypertensives on board.?? Blood pressure at goal today.?? Treatment for HDL and DM in place.?? Denies S&S - discussed in HPI. Labs drawn at endocrinology appointment last week - requested records. Will order follow up lab work if I do not receive those results this week. Due for A1c, BMP, and Lipid panel. Continue: Amlodipine 10 mg QD. Chlorthalidone 25 mg QD. Hydralazine 50 mg QID. Isosorbide mononitriate ER 60 mg QD. Metoprolol ER 200 mg QD. Also taking: Potassium chloride ER 40 mEq BID. Torsemide 20 mg QD.?? Hemorrhoids Not currently bleeding.?? Encouraged to not spend a lot of time sitting on the toilet.?? Patient does sit all day long in his recliner.?? June appointment for Rectal and Colon Surgery.?? Type 2 diabetes mellitus with diabetic polyneuropathy, with long-term current use of insulin [facility] manages his diabetes. Uses the [employer] chema BG checks QID. Basaglar 40 units subq BID. Humulin R 100 units subq TID/with meals.?? Follows with endocrinology every six months.?? No A1c result in last endocrinology note. *requested most recent note and labs from [facility]. Would like to order A1c for review - if not drawn when at [facility] last week. Healthy dietary intake is important. Physical activity is also very important for overall health. Walk after reach meal/snack even if a small walk in the basement that he can tolerate is helpful.?? Onychogryposis 6 toenails trimmed today.?? No signs of infection or ingrown toenails today.?? Nursing will make appointment with [facility] for further support.?? Hyperlipidemia associated with type 2 diabetes mellitus Lipid panel due this month High amounts of insulin prescribed by his software quality test engineer who manages his diabetes Elevated BG can lead to elevated lipid panel results Poor dietary intake; I have observed meals made from him by facility staff and they are high in carbohydrates and fat content. Also has bags of snacks in his room like chips.?? Continue Vascepa 2 grams PO BID, Rosuvastatin 40 mg PO QD. Ezeetimine 10 mg PO QD.?? Stage 2 chronic 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 Awaiting endocrinology note and lab work results. Will order BMP for review this month if not already drawn by software quality test engineer.?? Co- morbidity treatment: hypertension, hyperlipidemia, and diabetes.??. 04/11/2024
--- OUTSIDE RECORDS SUMMARY | 2024-10-19 18:22 | XMS_ITS | CCD ---
Author Name Cecilio Durham Address [address] [facility] [address] [place] [address] Phone Organization [facility] Phone Care Team Providers Care Business Process Architect Name Role Phone Harrison Durham Primary Care Provider Leona vailable Unavailable Chronic Care Management Unavaila ble Summary Purpose DataExchange Insurance Providers Payer name Policy type / Coverage type Covered republican ID Effective Begin Date Effective End Date Medicare [place] Medicare Part B [id number] Unknown Unknown Medicaid [place] Medicare Part B [id number] Unknown Unknown Family history Sister Brittany Suggs Diagnosis Age At Onset No Family Disease Entered N/A Runs in the family Diagnosis Age At Onset No Known Diseases N/A Sister Blnaka Mcduffie Diagnosis Age At Onset No Family Disease Entered N/A Social History Social History Element Codes Description Effec tive Dates Tobacco history SNOMED CT: 386401908 Never smoker 01/16 Sexually Active? Unknown No [...] Long-Term 09/03/[address]: 585167279 No Alcohol Consum ption 09/02/2020 Allergies, Adverse Reactions, Alerts Substance Reaction Codes Entered Date Inactivated Date Status * NO KNOWN FOOD ALLERGIES Shvqeja4407/13/2023No Inactive DateActiveLISINOPRILRxNorm: 681035602/12/2020No Inactive DateActiveMetformin WVzIyrfpaq65/28/2020 Inactive DateActive* NO KNOWN ENVIRONMENTAL ONUWCNQIJVylkcuo53/27/2024 Inactive DateActive Problems Condition Codes Effective Dates [...] planning - to document end of life lkjemofovhuIegtyni68/24/2024ctiveAmputated toe of right footICD-10: S98.131A ICD-9: 895.009/ctiveAnnual [...] E55.9 ICD-9: 268.909/ctiveCallus of heelICD-10: L84 ICD-9: 83511/esolvedGout due to renal impairmentICD-10: M10.30 ICD-9: 274.1005/esolvedHyperhidrosis of palmsICD-10: L74.512 ICD-9: 705.21010/12/2023esolvedHyperlipidemia, unspecifiedICD-10: E78.5 ICD-9: 272.405/esolvedOther fpc (current) drug therapyICD-10: Z79.899 ICD-9: V58.6905esolvedPain of [...] tagICD-10: L91.8 ICD-9: 701.904esolvedCoronary artery disease involving [place] coronary artery of [place] heart, angina presence unspecifiedICD-10: I25.10 ICD-9: 414.0102/ctiveInappropriate sexual behaviorICD-10: Z72.89 ICD-9: 312.8910/ctivePre-op evaluationICD-10: Z01.818 ICD-9: V72.8403/ctiveSecondary hypertensionICD-10: I15.9 ICD-9: 405.9903/3ActiveDepressionICD-10: F32.9 ICD-9: 99138/esolvedDVT (deep venous thrombosis)ICD-10: I82.409 ICD-9: 453.4009/esolvedEncounter for [...] to other viral communicable diseasesICD-10: Z20.828 ICD-9: V01.7902/1966UpkajexjDtoxdexwGjqbqix77/28/2020ActiveDiabetes mellitus Type 1Jksxmqr28/28/2020ActiveAnemia in chronic kidney diseaseICD-10: D63.1 02/12/2020ResolvedHyperlipidemia, unspecifiedICD-10: E78.509Resolved Medications Medication Codes Instructions Start Date Stop Date Status Fill Instructions nystatin 100,000 unit/gram topical powder RxNorm: 094009 Apply 1 Application Topical BID as needed abdominal/breast /groin folds 11/26 024 Inactive chlorthalidone 25 mg tablet RxNorm: 002995 Take 1 Tablet(s) Oral QAM every morning 04/06/20 No Stop Date Active pregabalin 150 mg capsule RxNorm: 752499 Take 1 Capsule(s) Oral QHS every night at bedtime 03/31/20 Inactive Vascepa 1 gram capsule RxNorm: 4551867 Take 2 Capsule(s) Oral BID 03/30/20 Active rosuvastatin 40 mg tablet RxNorm: 137736 1 TAB ORALLY EVERY EVENING (DX:CORONARY ARTERY DISEASE) 03/28/20 No Stop Date Active venlafaxine ER 75 mg capsule,extended release 24 hr RxNorm: 495311 3 CAPS (225MG) ORALLY DAILY (DX: MOOD DISORDER) 03/28/20 No Stop Date Active pregabalin 100 mg capsule RxNorm: 480844 Take 1 Capsule(s) Oral QAM every morning 03/20/20 Inactive cholecalciferol (vitamin D3) 1,250 mcg (50,000 unit) capsule RxNorm: 097280 Take 1 Capsule(s) Oral QW once a [...] Insulin 100 unit/mL (3 mL) subcutaneous RxNorm: 6422918 Inject 40 Unit(s) Subcutaneous BID 03/07/20 025 Inactive Please dispense one month supply. Humulin R U-500 (Concentrated) Insulin 500 unit/mL subcutaneous soln RxNorm: 676947 Inject 100 Unit(s) Subcutaneous AC before meals [...] to be use with new Accu [place] meter 03/04/20 Inactive ok to substitute with any covered alternative test strip FreeStyle Chema 2 Sensor kit RxNorm: Use UD as directed 03/02/20 025 Inactive FreeStyle Chema 2 Sensor kit RxNorm: Use UD as directed 03/02/20 Inactive Pen Needle 30 gauge x 09/29 RxNorm: Pen(s) Use 1 needle as directed TID 03/02/20 Inactive nystatin 100,000 unit/gram topical powder RxNorm: 494451 Apply 1 Application Topical BID as needed [...] (Concentrated) Insulin 500 unit/mL subcutaneous soln RxNorm: 913607 Inject 100 Unit(s) Subcutaneous TID 02/17/20 24 024 Inactive Humulin R U-500 (Concentrated) Insulin 500 unit/mL subcutaneous soln RxNorm: 350538 Inject 100 Unit(s) Subcutaneous TID 02/10/20 24 024 Inactive Radha MendenhallPen U-100 Insulin 100 unit/mL (3 mL) subcutaneous RxNorm: 5178317 Inject 30 Unit(s) Subcutaneous BID 02/10/20 24 024 Inactive Please dispense one month supply. pregabalin 100 mg capsule RxNorm: 581082 Take 1 Capsule(s) Oral QAM every morning 02/07/20 024 Inactive isosorbide mononitrate ER 60 mg tablet,extended release 24 hr RxNorm: 932531 Take 1 Tablet(s) Oral QD 02/01/20 24 025 Active aripiprazole 15 mg tablet RxNorm: 111065 Take 1/2 Tablet(s) Oral QD 02/01/20 24 025 Active torsemide 20 mg tablet RxNorm: 112677 1 TAB ORALLY DAILY (DX: EDEMA) 01/27/20 No Stop Date Active potassium chloride ER 20 mEq tablet,extended release(part/cryst) RxNorm: 8537761 2 TABS (40MEQ) ORALLY TWICE DAILY (DX: HYPOKALEMIA) 01/27/20 24 025 Inactive cephalexin 500 mg capsule RxNorm: 829622 Take 1 Capsule(s) Oral QID 12/17/19 24 024 Inactive cephalexin 500 mg capsule RxNorm: 665032 Take 1 Capsule(s) Oral QID 12/17/19 24 024 Inactive acetaminophen 500 mg tablet RxNorm: 910991 (MAX APAP:4GM/24HR) Take 1 Tablet(s) Oral TID as needed for pain 12/10/19 24 024 Inactive torsemide 20 mg tablet RxNorm: 462146 Take 1 Tablet(s) Oral QD 10/26/19 24 025 Inactive potassium chloride ER 20 mEq tablet,extended release RxNorm: 583993 Take 2 Tablet(s) Oral BID 10/26/19 24 Inactive torsemide 20 mg tablet RxNorm: 934869 Take 1 Tablet(s) Oral QD 10/26/19 24 Inactive potassium chloride ER 20 mEq tablet,extended release RxNorm: 727045 Take 2 Tablet(s) Oral BID 10/26/19 24 024 Inactive Artificial Tears (PF) 0.1 %-0.3 % drops in a dropperette RxNorm: 588481 Apply 1-2 Drop(s) Both eyes BID as needed 09/28/19 24 Inactive erythromycin 5 mg/gram (0.5 %) eye ointment RxNorm: 372833 Apply 1 Application Both eyes QHS every night at bedtime Instill ~1 cm ribbon into affected eye 09/28/19 24 024 Inactive Artificial Tears (PF) 0.1 %-0.3 % drops in a dropperette RxNorm: 786206 Apply 1-2 Drop(s) Both eyes BID as needed 09/28/19 24 024 Inactive erythromycin 5 mg/gram (0.5 %) eye ointment RxNorm: 212048 Apply 1 Application Both eyes QHS every night at bedtime Instill ~1 cm ribbon into affected eye 09/28/19 24 Inactive acetaminophen 500 mg tablet RxNorm: 530552 (MAX APAP:4GM/24HR) Take 1 Tablet(s) Oral TID as needed for pain 09/24/19 24 Inactive carvedilol 25 mg tablet RxNorm: 942436 Take 1 Tablet(s) Oral QD 09/08/19 24 No Stop Date Active pregabalin 100 mg capsule RxNorm: 754311 Take 1 Capsule(s) Oral QAM every morning 09/07/19 24 024 Inactive ezetimibe 10 mg tablet RxNorm: 424997 Take 1 Tablet(s) Oral QD 07/13/19 24 025 Inactive bisacodyl 10 mg rectal suppository RxNorm: 731054 Insert 1 Suppository Rectal QD as needed 07/13/19 24 No Stop Date Active polyethylene glycol 3350 17 gram/dose oral powder RxNorm: 062980 Take 17 Gram(s) Oral BID as needed mix in 4-8ox water 07/13/19 24 025 Inactive ketoconazole 2 % shampoo RxNorm: 496594 Apply 1 Application Topical UD as directed 07/13/19 No Stop Date Active Ozempic 1 mg/dose (4 mg/3 mL) subcutaneous pen injector RxNorm: 5388707 Inject 1 Milligram(s) Subcutaneous QW once a week 07/13/19 No Stop Date Active Guaifenesin AC 10 mg-100 mg/5 mL oral liquid RxNorm: 744601 Take 10 Milliliter(s) Oral Q4H every four hours as needed 07/13/19 No Stop Date Active ammonium lactate 12 % topical cream RxNorm: 564238 Apply 1 Application Topical BID 07/13/19 24 025 Inactive hydrocortisone 2.5 % topical cream RxNorm: 906271 Apply 1 Application Topical BID as needed 07/13/19 No Stop Date Active rosuvastatin 20 mg sprinkle capsule RxNorm: 5524743 Take 1 Capsule(s) Oral QD 07/13/19 24 025 Inactive rosuvastatin 40 mg tablet RxNorm: 792285 Take 1 Tablet(s) Oral QPM every evening 07/13/19 24 024 Inactive aripiprazole 15 mg tablet RxNorm: 758195 Take 1/2 Tablet(s) Oral QD 07/13/19 24 024 Inactive isosorbide mononitrate ER 60 mg tablet,extended release 24 hr RxNorm: 897978 Take 1 Tablet(s) Oral QD 07/13/19 24 024 Inactive Vascepa 1 gram capsule RxNorm: 3026979 Take 2 Capsule(s) Oral BID 07/13/19 24 024 Inactive venlafaxine ER 75 mg capsule,extended release 24 hr RxNorm: 746795 Take 3 Capsule(s) Oral QD 07/13/19 24 024 Inactive Basagldestin Enrique U-100 Insulin 100 unit/mL (3 mL) subcutaneous RxNorm: 7494415 Inject 30U SubQ twice daily 07/07/19 24 024 Inactive Please dispense one month supply. Radha Enrique U-100 Insulin 100 unit/mL (3 mL) subcutaneous RxNorm: 8024586 Inject 30U SubQ twice daily 07/07/19 24 024 Inactive Please dispense one month supply. pregabalin 150 mg capsule RxNorm: 385675 Take 1 Capsule(s) Oral QHS every night at bedtime 07/05/19 24 024 Inactive pregabalin 150 mg capsule RxNorm: 359813 Take 1 Capsule(s) Oral QHS every night at bedtime 07/05/19 24 024 Inactive polyethylene glycol 3350 17 gram/dose oral powder RxNorm: 483470 Take 1 Packet Oral QD as needed (1 packet = 17g) mix with 4-8oz of liquid 06/15/19 24 024 Inactive bisacodyl 10 mg rectal suppository RxNorm: 207459 Insert one suppository per rectum once daily as needed for constipation 06/15/19 24 024 Inactive bisacodyl 10 mg rectal suppository RxNorm: 621252 Insert one suppository per rectum once daily as needed for constipation 06/15/19 24 024 Inactive pregabalin 100 mg capsule RxNorm: 114840 Take 1 Capsule(s) Oral QAM every morning 04/27/20 23 024 Inactive Levemir FlexPen 100 unit/mL (3 mL) solution subcutaneous insulin pen RxNorm: 614727 Inject 30 Unit(s) Subcutaneous BID 04/27/20 23 024 Inactive rosuvastatin 40 mg tablet RxNorm: 081250 Take 1 Tablet(s) Oral QPM every evening 04/16/20 23 024 Inactive D/C rosuvastatin 20mg venlafaxine ER 75 mg capsule,extended release 24 hr RxNorm: 740210 Take 3 Capsule(s) Oral QD 04/14/20 23 023 Inactive pregabalin 100 mg capsule RxNorm: 700425 Take 1 Capsule(s) Oral QAM every morning [...] strip clotrimazole 1 % topical cream RxNorm: 712290 Take apply topically to abdominal folds twice daily for 14 days 03/12/20 23 024 Inactive Ozempic 1 mg/dose (4 mg/3 mL) subcutaneous pen injector RxNorm: 5178833 Inject 1 Milligram(s) Subcutaneous QW once a week 03/11/20 023 Inactive rosuvastatin 20 mg tablet RxNorm: 516895 Take 1 Tablet(s) Oral QD 02/26/20 23 023 Inactive d/c pravastatin 80mg Ozempic 1 mg/dose (4 mg/3 mL) subcutaneous pen injector RxNorm: 2105123 Inject 1 Milligram(s) Subcutaneous QW once a week 02/20/20 23 023 Inactive pregabalin 150 mg capsule RxNorm: 352106 Take 1 Capsule(s) Oral HS at bed time 02/19/20 23 023 Inactive pregabalin 100 mg capsule RxNorm: 010771 Take 1 Capsule(s) Oral QAM every morning 02/18/20 23 023 Inactive venlafaxine ER 75 mg capsule,extended release 24 hr RxNorm: 817959 Take 3 Capsule(s) Oral QD 02/04/20 23 023 Inactive FreeStyle Chema 2 Sensor kit RxNorm: use as directed 02/04/20 23 023 Inactive FreeStyle Chema 2 Sensor kit RxNorm: use as directed 02/04/20 23 024 Inactive fluconazole 150 mg tablet RxNorm: 618666 Take 1 Tablet(s) Oral on day 3 and on day 6 02/03/20 23 024 Inactive venlafaxine ER 150 mg capsule,extended release 24 hr RxNorm: 176038 Take 1 Capsule(s) Oral QD 02/03/20 23 023 Inactive chlorthalidone 25 mg tablet RxNorm: 475188 Take 1 Tablet(s) Oral QAM every morning 02/03/20 23 024 Inactive acetaminophen 500 mg tablet RxNorm: 433846 1 TABLET ORALLY 3 TIMES DAILY (MAX APAP:4GM/24HR) 12/15/19 23 023 Inactive clotrimazole 1 % topical cream RxNorm: 507968 apply 1g topically to top of feet and in between toes BID 12/09/19 23 025 Inactive potassium chloride ER 20 mEq tablet,extended release RxNorm: 030199 Take 1 Tablet(s) Oral BID 12/09/19 024 Inactive d/c 20mEq once daily (sent from hospital) nystatin 100,000 unit/gram topical powder RxNorm: 532768 APPLY TO AFFECTED AREAS TOPICALLY 2 TIMES DAILY 11/21/19 23 023 Inactive Nystop 100,000 unit/gram topical powder RxNorm: 191539 Apply to abd folds, under breasts and L side of groin Topical BID x 14 days, then BID PRN 11/20/19 023 Inactive dx: yeast dermatitis [place] Ultra Strength 4 %-30 %-10 % topical cream RxNorm: 178796 Apply 1 Gram(s) Topical QID PRN to feet and legs for neuropathic pain 11/11/19 024 Inactive clotrimazole 1 % topical cream RxNorm: 326348 Apply 1/2 Gram(s) Topical BID Apply to affected areas of groin, periarea, and abdominal topically 2 times daily 11/10/19 23 023 Inactive hydrocortisone 2.5 % topical cream RxNorm: 019132 Apply 1/2 Gram(s) Topical BID as needed 11/10/19 024 Inactive Levemir FlexPen 100 unit/mL (3 mL) solution subcutaneous insulin pen RxNorm: 375429 Inject 30 Unit(s) Subcutaneous BID 10/07/19 23 023 Inactive Humulin R U-500 (Concentrated) Insulin 500 unit/mL subcutaneous soln RxNorm: 185357 Inject 100 Unit(s) Subcutaneous TID 10/07/19 024 Inactive Ozempic 0.25 mg or 0.5 mg (2 mg/3 mL) subcutaneous pen injector RxNorm: 3227768 Inject 1/2 Milligram(s) Subcutaneous QW once a week 10/07/19 024 Inactive aripiprazole 15 mg tablet RxNorm: 731300 1/2 TAB (7.5MG) ORALLY DAILY (DX:MAJOR DEPRESSIVE DISORDER) 09/23/19 023 Inactive Accu-Chek Guide test strips RxNorm: Use 1 Test Strip QID 09/15/19 023 Inactive ok to substitute with any covered alternative test strip Lancets,Thin 28 gauge RxNorm: Use 1 as directed QID 09/15/19 023 Inactive torsemide 20 mg tablet RxNorm: 231735 Take 1 Tablet(s) Oral BID 09/09/19 024 Inactive d/c once daily dosing carvedilol 25 mg tablet RxNorm: 230616 Take 1 Tablet(s) Oral QD 08/25/19 024 Inactive pregabalin 150 mg capsule RxNorm: 667796 1 Capsule(s) Oral HS at bed time 08/18/19 023 Inactive pregabalin 100 mg capsule RxNorm: 273399 1 Capsule(s) Oral QAM every morning 08/18/19 023 Inactive carvedilol 25 mg tablet RxNorm: 871740 1 Tablet(s) Oral QD 07/28/19 023 Inactive lisinopril 20 mg tablet RxNorm: 290739 Give 1 Tablet(s) Oral QD 07/28/19 23 023 Inactive Lyrica 150 mg capsule RxNorm: 131823 Take 1 Capsule(s) Oral QHS every night at bedtime 07/19/19 023 Inactive d/c 100mg dose Diflucan 150 mg tablet RxNorm: 674034 Take 1 Tablet(s) Oral QD repeat on day 3 and 6 07/19/19 23 023 Inactive pregabalin 100 mg capsule RxNorm: 134114 Take 1 Capsule(s) Oral QAM every morning 07/19/19 23 023 Inactive gatifloxacin 0.5 % eye drops RxNorm: 188246 Instill 1 Drop(s) as directed TID Instill 1 drop in to affected eye(s) starting 1 day prior to surgery and continue until gone (do not exceed 4 weeks). 07/13/19 23 023 Inactive carvedilol 25 mg tablet RxNorm: 098137 2 Tablet(s) Oral BID 07/13/19 23 023 Inactive Humulin R Regular U-100 Insulin 100 unit/mL injection solution RxNorm: 591503 85 Unit(s) Injection TID 07/13/19 23 023 Inactive ketorolac 0.5 % eye drops RxNorm: 051837 Instill 1 Drop(s) as directed QID Instill 1 drop into affected eye(s) 4 times daily starting 1 day prior to surgery and continue until gone (do not exceed 4 weeks). 07/13/19 023 Inactive Diflucan 150 mg tablet RxNorm: 350558 Take 1 Tablet(s) Oral QD repeat on day 3 and 6 06/30/19 23 023 Inactive Accu-Chek Guide test strips RxNorm: Use 1 Test Strip QID Use 1 test strip to monitor blood glucose 4 times daily and as needed. Dx:E11.42. 06/23/19 23 023 Inactive ok to substitute with any covered alternative test strip dextromethorphan-gu aifenesin 10 mg-100 mg/5 mL oral liquid RxNorm: 843138 Take 10 Milliliter(s) Oral every 4 hours as needed for cough 06/19/19 23 023 Inactive dextromethorphan-gu aifenesin 10 mg-100 mg/5 mL oral liquid RxNorm: 191236 Take 10 Milliliter(s) Oral every 4 hours as needed for cough 06/19/19 23 023 Inactive Lyrica 150 mg capsule RxNorm: 010711 Take 1 Capsule(s) Oral QHS every night at bedtime 06/18/19 23 023 Inactive d/c 100mg dose aripiprazole 15 mg tablet RxNorm: 395868 1/2 TAB (7.5MG) ORALLY DAILY (DX:MAJOR DEPRESSIVE DISORDER) 06/05/19 023 Inactive pregabalin 100 mg capsule RxNorm: 003155 1 Capsule(s) Oral QAM every morning 06/02/19 23 023 Inactive Banophen 50 mg capsule RxNorm: 5344165 Take 1 Capsule(s) Oral Q6H every 6 hours as needed 05/19/19 No Stop Date Active Novolog Flexpen U-100 Insulin aspart 100 unit/mL (3 mL) subcutaneous RxNorm: 0256307 Inject 10 Unit(s) Subcutaneous QHS every night at bedtime with nighttime snack 04/08/20 022 Inactive Novolog Flexpen U-100 Insulin aspart 100 unit/mL (3 mL) subcutaneous RxNorm: 2620812 Inject 42 Unit(s) Subcutaneous TID in addition to sliding scale 04/08/20 022 Inactive d/c 36u albuterol sulfate HFA 90 mcg/actuation aerosol inhaler RxNorm: 5964291 Take 2 Puff(s) Inhalation Q4H every four hours as needed as needed for SOB, cough, or wheezing 04/07/20 030 Active Banophen 50 mg capsule RxNorm: 2716843 Take 1 Capsule(s) Oral Q6H every 6 hours as needed 04/06/20 023 Inactive diphenhydramine 50 mg tablet RxNorm: 7830045 Take 1 Tablet(s) Oral Q6H every 6 hours as needed 04/06/20 22 022 Inactive diphenhydramine 50 mg tablet RxNorm: 7573809 1 Tablet(s) Oral Q6H every 6 hours as needed 04/06/20 22 022 Inactive Abilify 15 mg tablet RxNorm: 787916 1/2 Tablet(s) Oral QD 03/10/20 22 023 Inactive Shingrix (PF) 50 mcg/0.5 mL intramuscular suspension, kit RxNorm: 2399381 Administer 1/2 Milliliter(s) Intramuscular QD one time shingrix step 2 ( step 1 given 11/04/21) WITH needle - Nursing please administer upon arrival and once administered post a bridge message with date of administration, medical staffing coordinator, expiration date, and lot# so we can update [facility] 02/18/20 22 022 Inactive dispense with needle Shingrix (PF) 50 mcg/0.5 mL intramuscular suspension, kit RxNorm: 6306311 Administer 1/2 Milliliter(s) Intramuscular QD one time shingrix step 2 ( step 1 given 11/04/21) WITH needle - Nursing please administer upon arrival and once administered post a bridge message with date of administration, medical staffing coordinator, expiration date, and lot# so we can update [facility] 02/18/20 22 022 Inactive dispense with needle polyethylene glycol 3350 17 gram/dose oral powder RxNorm: 621166 Take 17=1 capful Gram(s) Oral QD mix with 4-8oz of liquid 01/08/20 22 025 Inactive take this in addition to BID prn order Lyrica 100 mg capsule RxNorm: 137849 Take 1 Capsule(s) Oral QAM every morning 01/08/20 22 022 Inactive d/c 50mg dose acetaminophen 500 mg tablet RxNorm: 700970 Take 1 Tablet(s) Oral TID 01/08/20 22 022 Inactive d/c PRN order Lyrica 150 mg capsule RxNorm: 989070 Take 1 Capsule(s) Oral QHS every night at bedtime 01/08/20 22 023 Inactive d/c 100mg dose Abilify 5 mg tablet RxNorm: 027958 Take 1 Tablet(s) Oral QD take 1 tab po QD #30 refill 5 dx: MDD 12/12/19 22 022 Inactive Abilify 5 mg tablet RxNorm: 457733 Take 1 Tablet(s) Oral QD take 1 tab po QD #30 refill 5 dx: MDD 12/12/19 22 022 Inactive Novolog Flexpen U-100 Insulin aspart 100 unit/mL (3 mL) subcutaneous RxNorm: 6485604 Inject 42 Unit(s) Subcutaneous TID in addition to sliding scale 12/10/19 22 022 Inactive d/c 36u chlorthalidone 25 mg tablet RxNorm: 658601 Take 1 Tablet(s) Oral QAM every morning 12/10/19 22 023 Inactive pregabalin 50 mg capsule RxNorm: 736797 Take 1 Capsule(s) Oral QAM every morning 11/12/19 22 022 Inactive tetanus-diphtheria toxoids-Td 2 Lf unit-2 Lf unit/0.5 mL IM suspension RxNorm: 139 Take 0.5 Miscellaneous Intramuscular 11/12/19 22 022 Inactive need tdap - nursing to administer upon arrival pregabalin 50 mg capsule RxNorm: 014277 Take 1 Capsule(s) Oral QAM every morning 10/16/19 22 022 Inactive pregabalin 50 mg capsule RxNorm: 119619 Take 1 Capsule(s) Oral QAM every morning 10/16/19 22 022 Inactive pregabalin 50 mg capsule RxNorm: 534045 1 Capsule(s) Oral QAM every morning 10/15/19 22 022 Inactive Shingrix (PF) 50 mcg/0.5 mL intramuscular suspension, kit RxNorm: 8221040 Administer 1/2 Milliliter(s) Intramuscular one time Nursing please administer upon arrival and once administered post a bridge message with date of administration, medical staffing coordinator, expiration date, and lot# so we can update [facility]. 10/09/19 22 022 Inactive shingrix step 1 Shingrix (PF) 50 mcg/0.5 mL intramuscular suspension, kit RxNorm: 0310862 Administer 1/2 Milliliter(s) Intramuscular one time Nursing please administer upon arrival and once administered post a bridge message with date of administration, medical staffing coordinator, expiration date, and lot# so we [...] aspart 100 unit/mL (3 mL) subcutaneous RxNorm: 6312623 Inject 10 Unit(s) Subcutaneous QHS every night at bedtime with nighttime snack 10/08/19 22 022 Inactive Shingrix (PF) 50 mcg/0.5 mL intramuscular suspension, kit RxNorm: 8541177 ADMINISTER 2-DOSE SERIES PER CDC GUIDELINES 10/08/19 22 Active Shingrix (PF) 50 mcg/0.5 mL intramuscular suspension, kit RxNorm: 2476442 ADMINISTER 2-DOSE SERIES PER CDC GUIDELINES 10/08/19 22 Inactive Novolog Flexpen U-100 Insulin aspart 100 unit/mL (3 mL) subcutaneous RxNorm: 2233663 Inject 36 Unit(s) Subcutaneous TID in addition to sliding scale 10/08/19 Inactive cholecalciferol (vitamin D3) 1,250 mcg (50,000 unit) capsule RxNorm: 978037 Take 1 Capsule(s) Oral QW once a week 10/08/19 024 Inactive Novofine Autocover 30 gauge x 1/3 needle RxNorm: Use 1 Miscellaneous UD as directed Use 1 needle as directed to administer insulin 5 times a day Dx:E11.42. 10/03/19 22 022 Inactive ok to substitute with any covered alternative pen needle benzoyl peroxide 10 % topical cleanser RxNorm: 075396 Apply 1 Application Topical QD apply to face, wash rinse and dry once daily (may change to QOD if drying) 08/19/19 22 022 Inactive (%covered by insurance) #60ml refill 11 dx: acne benzoyl peroxide 10 % topical cleanser RxNorm: 385999 Apply 1 Application Topical QD apply to face, wash rinse and dry once daily (may change to QOD if drying) 08/19/19 22 022 Inactive (%covered by insurance) #60ml refill 11 dx: acne benzoyl peroxide 10 % topical cleanser RxNorm: 314903 Apply 1 Application Topical QD apply to face, wash rinse and dry once daily (may change to QOD if drying) 08/19/19 22 022 Inactive (%covered by insurance) #60ml refill 11 dx: acne Lyrica 50 mg capsule RxNorm: 102299 Take 1 Capsule(s) Oral QAM every morning Take 1 capsule by mouth once daily 08/19/19 22 022 Inactive benzoyl peroxide 10 % topical cleanser RxNorm: 582656 Apply 1 Application Topical QD apply to face, wash rinse and dry once daily (may change to QOD if drying) 08/19/19 22 022 Inactive (%covered by insurance) #60ml refill 11 dx: acne Lyrica 100 mg capsule RxNorm: 773875 Take 1 Capsule(s) Oral QHS every night at bedtime Take 1 capsule by mouth once daily at bedtime 08/19/19 22 022 Inactive Lyrica 100 mg capsule RxNorm: 552145 Take 1 Capsule(s) Oral QHS every night at bedtime Take 1 capsule by mouth once daily at bedtime 08/16/19 22 022 Inactive Lyrica 50 mg capsule RxNorm: 420713 Take 1 Capsule(s) Oral QAM every morning Take 1 capsule by mouth once daily 08/16/19 22 022 Inactive Levemir FlexTouch U-100 Insulin 100 unit/mL (3 mL) subcutaneous pen RxNorm: 601721 Inject 86 Unit(s) Subcutaneous BID 08/05/19 22 022 Inactive d/c 83units BID Lyrica 100 mg capsule RxNorm: 511101 Take 1 Capsule(s) Oral QHS every night at bedtime Take 1 capsule by mouth once daily at bedtime 07/14/19 22 022 Inactive Lyrica 50 mg capsule RxNorm: 312846 Take 1 Capsule(s) Oral QAM every morning Take 1 capsule by mouth once daily 07/14/19 22 022 Inactive Levemir FlexTouch U-100 Insulin 100 unit/mL (3 mL) subcutaneous pen RxNorm: 215829 Inject 83 Unit(s) Subcutaneous BID 07/08/19 22 [...] test strip hydralazine 50 mg tablet RxNorm: 847667 Take 1 Tablet(s) Oral QID 05/05/20 21 022 Inactive venlafaxine ER 225 mg tablet,extended release 24 hr RxNorm: 499065 Take 1 Tablet(s) Oral QD 05/05/20 21 021 Inactive venlafaxine ER 225 mg tablet,extended release 24 hr RxNorm: 856205 Take 1 Tablet(s) Oral QD 05/05/20 21 022 Inactive isosorbide mononitrate ER 30 mg tablet,extended release 24 hr RxNorm: 191761 Take 1 Tablet(s) Oral QD 05/05/20 024 Inactive hydralazine 50 mg tablet RxNorm: 237297 Take 1 Tablet(s) Oral QID 05/05/20 21 021 Inactive aspirin 81 mg tablet,delayed release RxNorm: 480742 Take 1 Tablet(s) Oral QD 03/31/20 022 Inactive Vitamin D2 1,250 mcg (50,000 unit) capsule RxNorm: 0881774 Take 1 Capsule(s) Oral QW once a week x 12 weeks 03/31/20 022 Inactive Vitamin D2 1,250 mcg (50,000 unit) capsule RxNorm: 5927457 Take 1 Capsule(s) Oral QW once a week 03/31/20 021 Inactive Zetia 10 mg tablet RxNorm: 820950 Take 1 Tablet(s) Oral QD 03/31/20 024 Inactive Zetia 10 mg tablet RxNorm: 382883 Take 1 Tablet(s) Oral QD 03/31/20 021 Inactive hydralazine 25 mg tablet RxNorm: 232166 Take 1 Tablet(s) Oral QID 03/31/20 021 Inactive hydralazine 25 mg tablet RxNorm: 551770 Take 1 Tablet(s) Oral QID 03/31/20 021 Inactive hydralazine 10 mg tablet RxNorm: 110066 Take 1 Tablet(s) Oral QID 03/03/20 021 Inactive cephalexin 500 mg tablet RxNorm: 412748 Take 1 Tablet(s) Oral QID 02/27/20 021 Inactive cephalexin 500 mg tablet RxNorm: 025727 Take 1 Tablet(s) Oral QID 02/27/20 021 Inactive lisinopril 40 mg tablet RxNorm: 040001 Take 1 Tablet(s) Oral QD 02/11/20 21 023 Inactive Eliquis 5 mg tablet RxNorm: 6050806 Take 1 Tablet(s) Oral BID 01/05/20 21 025 Inactive Eliquis 5 mg tablet RxNorm: 5302169 Take 2 Tablet(s) Oral QD 01/01/20 21 021 Inactive Lyrica 50 mg capsule RxNorm: 890816 Take 1 Capsule(s) Oral QAM every morning 12/24/19 21 021 Inactive Lyrica 100 mg capsule RxNorm: 346463 Take 1 Capsule(s) Oral QHS every night at bedtime 12/24/19 21 021 Inactive clotrimazole 1 % topical cream RxNorm: 157067 Apply to right foot and toes Topical BID 12/04/19 21 023 Inactive metoprolol succinate ER 200 mg tablet,extended release 24 hr RxNorm: 563839 Take 1 Tablet(s) Oral QD 12/04/19 21 023 Inactive ciprofloxacin 500 mg tablet RxNorm: 266997 Take 1 Tablet(s) Oral QD 11/30/19 21 021 Inactive DX ofloxacin otic drops Accu-Chek Guide test strips RxNorm: USE 1 TO CHECK GLUCOSE 4 TIMES DAILY AND NEEDED 11/15/19 21 023 Inactive Blood Glucose Test strips RxNorm: Use 1 Test Strip QID at PRN 11/05/19 21 023 Inactive E11.42 lisinopril 30 mg tablet RxNorm: 519116 Take 1 Tablet(s) Oral QD 10/30/19 021 Inactive lisinopril 20 mg tablet RxNorm: 198616 Take 1 Tablet(s) Oral QD 10/23/19 21 021 Inactive lisinopril 20 mg tablet RxNorm: 645897 Take 1 Tablet(s) Oral QD 10/23/19 21 021 Inactive lisinopril 10 mg tablet RxNorm: 998455 Take 1 Tablet(s) Oral QD 10/02/19 21 021 Inactive icosapent ethyl 1 gram capsule RxNorm: 0581396 Take 2 Capsule(s) (2 gm) Oral BID with meals 09/12/19 21 024 Inactive Okay to dispense one 2gm tab if you have that available. icosapent ethyl 1 gram capsule RxNorm: 8195566 Take 2 Capsule(s) Oral BID 09/12/19 21 021 Inactive Okay to dispense one 2gm tab if you have that available. amlodipine 10 mg tablet RxNorm: 348921 Take 1 Tablet(s) Oral QD 09/04/19 21 021 Inactive aspirin 81 mg tablet,delayed release RxNorm: 366487 Take 1 Tablet(s) Oral QD 09/04/19 021 Inactive Levemir FlexTouch U-100 Insulin 100 unit/mL (3 mL) subcutaneous pen RxNorm: 370529 Inject 150 Unit(s) Subcutaneous BID 09/04/19 21 022 Inactive venlafaxine ER 150 mg tablet,extended release 24 hr RxNorm: 404868 Take 1 Tablet(s) Oral QD 09/04/19 021 Inactive clotrimazole-betame thasone 1 %-0.05 % topical cream RxNorm: 947577 Apply to rash on red area on left abdomen/chest Topical BID 08/10/19 21 021 Inactive amlodipine 5 mg tablet RxNorm: 737434 Take 1 Tablet(s) Oral QD 07/31/19 021 Inactive cephalexin 500 mg tablet RxNorm: 921417 Take 1 Tablet(s) Oral BID BID - Twice Daily 07/31/19 21 021 Inactive Start 08/01/20 pantoprazole 40 mg tablet,delayed release RxNorm: 504498 Take 1 Tablet(s) Oral QAM every morning 07/08/19 025 Inactive senna 8.6 mg tablet RxNorm: 092518 Take 1 Tablet(s) Oral QD 07/08/19 025 Inactive carbamazepine 200 mg tablet RxNorm: 076994 Take 1 Tablet(s) Oral BID 07/08/19 21 025 Inactive clopidogrel 75 mg tablet RxNorm: 847299 Take 1 Tablet(s) Oral QD 07/08/19 021 Inactive Blood Glucose Test strips RxNorm: Use 1 Test Strip QID at PRN 07/08/19 21 021 Inactive E11.42 Novolog Flexpen U-100 Insulin aspart 100 unit/mL (3 mL) subcutaneous RxNorm: 1743384 Administer per sliding scale Milliliter(s) Subcutaneous TID 151-200: 10 u; 201-250: 20 u; 251-300: 30 u; 301-350: 40 u; 351-400: 50 u. 07/08/19 022 Inactive lisinopril 5 mg tablet RxNorm: 212657 Take 1 Tablet(s) Oral QD 07/08/19 21 021 Inactive Novolog Flexpen U-100 Insulin aspart 100 unit/mL (3 mL) subcutaneous RxNorm: 7057324 Inject 85 Unit(s) Subcutaneous TID 07/08/19 022 Inactive pravastatin 80 mg tablet RxNorm: 898311 Take 1 Tablet(s) Oral QHS every night at bedtime 07/08/19 023 Inactive clotrimazole 1 % topical cream RxNorm: 347341 Apply to bilateral groin areas Topical BID 07/08/19 022 Inactive metoprolol succinate ER 200 mg tablet,extended release 24 hr RxNorm: 573671 Take 1 Tablet(s) Oral QD 07/08/19 021 Inactive Vitamin D3 25 mcg (1,000 unit) tablet RxNorm: 447026 Take 1 Tablet(s) Oral QD 07/08/19 021 Inactive isosorbide dinitrate 30 mg tablet RxNorm: 552756 Take 1 Tablet(s) Oral QD 07/08/19 021 Inactive Levemir FlexTouch U-100 Insulin 100 unit/mL (3 mL) subcutaneous pen RxNorm: 636122 Inject 140 Unit(s) Subcutaneous BID 07/08/19 021 Inactive torsemide 20 mg tablet RxNorm: 153429 Take 1 Tablet(s) Oral QD 07/08/19 023 Inactive venlafaxine 75 mg tablet RxNorm: 189063 Take 1 Tablet(s) Oral QD 07/08/19 021 Inactive acetaminophen 500 mg tablet RxNorm: 369821 Take 1 Tablet(s) Oral TID as needed for headache 06/18/19 021 Inactive acetaminophen 500 mg tablet RxNorm: 416748 Take 1 Tablet(s) Oral TID as needed for headache 06/18/19 021 Inactive Lyrica 100 mg capsule RxNorm: 023384 Take 1 Capsule(s) Oral QHS every night at bedtime 06/11/19 21 021 Inactive Lyrica 50 mg capsule RxNorm: 369284 Take 1 Capsule(s) Oral QAM every morning 06/10/19 021 Inactive hydrocortisone 2.5 % topical cream RxNorm: 271527 Apply to bilateral groin creases Topical BID 05/15/20 20 021 Inactive clotrimazole 1 % topical cream RxNorm: 677299 Apply to bilateral groin areas Topical BID 05/15/20 20 021 Inactive Lyrica 50 mg capsule RxNorm: 369018 Take 1 Capsule(s) Oral QAM every morning 05/14/20 20 020 Inactive Lyrica 100 mg capsule RxNorm: 040121 Take 1 Capsule(s) Oral QHS every night [...] Inactive Nystop 100,000 unit/gram topical powder RxNorm: 502497 Apply to abd folds, under breasts and L side of groin Topical BID x 14 days, then BID PRN 04/08/20 20 020 Inactive dx: yeast dermatitis Lyrica 100 mg capsule RxNorm: 467237 Take 1 Capsule(s) Oral QHS every night at bedtime 03/13/20 20 Inactive Lyrica 50 mg capsule RxNorm: 765311 Take 1 Capsule(s) Oral QAM every morning 03/13/20 20 Inactive ketoconazole 2 % shampoo RxNorm: 061137 Apply Topical two times a week with showers 03/11/20 20 Inactive cholecalciferol (vitamin D3) 50 mcg (2,000 unit) tablet RxNorm: 465959 Take 1 Tablet(s) Oral QD 03/11/20 Inactive Zetia 10 mg tablet RxNorm: 543326 Take 1 Tablet(s) Oral QD 03/07/20 20 021 Inactive Zetia 10 mg tablet RxNorm: 693173 Take 1 Tablet(s) Oral QD 03/07/20 20 Inactive Lyrica 50 mg capsule RxNorm: 012942 Take 1 Capsule(s) Oral QAM every morning 02/15/20 20 Inactive Lyrica 100 mg capsule RxNorm: 058852 Take 1 Capsule(s) Oral QHS every night at bedtime 02/15/20 20 Inactive Lyrica 100 mg capsule RxNorm: 904887 Take 1 Capsule(s) Oral QHS every night at bedtime 02/15/20 20 Inactive Lyrica 50 mg capsule RxNorm: 849536 Take 1 Capsule(s) Oral QAM every morning 02/15/20 20 Inactive metoprolol succinate ER 200 mg tablet,extended release 24 hr RxNorm: 911382 Take 1 Tablet(s) Oral QD 08/12/19 025 Inactive loperamide 2 mg capsule RxNorm: 488639 Take 1 Capsule(s) Oral QID as needed 09/06/19 025 Inactive hydralazine 50 mg tablet RxNorm: 037593 Take 1 Tablet(s) Oral QID 08/12/19 025 Inactive Soft Touch Lancets RxNorm: miscellaneous 03/04/20 24 025 Inactive venlafaxine ER 75 mg capsule,extended release 24 hr RxNorm: 285311 Take 3 Capsule(s) Oral QD 06/12/19 22 023 Inactive polyethylene glycol 3350 17 gram/dose oral powder RxNorm: 040281 Take 17=1 capful Gram(s) Oral BID as needed mix with 4-8oz of liquid 06/12/19 22 024 Inactive icosapent ethyl 1 gram capsule RxNorm: 4161803 Take 2 Capsule(s) (2 gm) Oral BID with meals 10/07/19 23 023 Inactive Okay to dispense one 2gm tab if you have that available. Levemir FlexTouch U-100 Insulin 100 unit/mL (3 mL) subcutaneous pen RxNorm: 808597 Inject 80 Unit(s) Subcutaneous BID 07/14/19 23 023 Inactive Novolog Flexpen U-100 Insulin aspart 100 unit/mL (3 mL) subcutaneous RxNorm: 9529840 Insert 30 Unit(s) Subcutaneous TID with meals [...] Planned Activity Notes Codes Status Date Referral: [facility]/Imaging WPtel: [address] [place], [place] [id number] USReferralAppointment Elmciqirj09/06/2025Referral: [facility]/Endocrinology WPtel: [address] [place] [address] 3 [id number] USReferralNo Records Mhhcmzyj50/24/2025Patient Education: Patient Medication OrhdvwkXalnvblbl03/23/2024ppointment: Harrison Munson WPtel: [address] [facility] 300 [id number] USAWV02/08/2024ppointment: Harrison Munson WPtel: [address] [facility] 300 [id number] USF/U001/11/2024ppointment: Sandra Clark WPtel: [address] [facility] Psych Follow Up12/09/2022ppointment: Tapan Shirley WPtel: [address] [facility]10/26/2022Referral: [facility] WPtel: [address], [address] [id number] USReferralRecords Xlmgaxsz57/08/2023ppointment: Tapan Shirley WPtel: [address] [facility] [address] [id number] USF/08/11/2022ppointment: Tapan Shirley WPtel: [address] [facility] [address] [id number] USF/U007/14/2022ppointment: Tapan Shirley WPtel: [address] [facility] [address] [id number] USF/2Referral: [facility] WPtel: [address] [id number] AMSnosrjlbHzuqqkfnj11/12/2022Referral: General CardiologyReferralCompleted 1Referral: General PsychologistReferralClosedReferral: General PsychiatristReferralPatient/Family [...] Sister Jyotsna involved in his care cell# [phone] Guardian: Giulia (tapan met in person 09/01/21), [...] appointment 05.26.2024 with Jessa Webster MD at [facility]. Start Pioglitazone 15 mg QD. Stop Basaglar insulin. Increase Ozempic 2 mg once wkly. Continue Humalin R U-500 100 units with meals TID. FOLLOW UP 2 MONTHS. If BG >400 add 50 units to next scheduled dose of Humalin R U 500 insulin 06/12/2024
--- OUTSIDE RECORDS SUMMARY | 2024-10-19 18:24 | XMS_ITS | CCD ---
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 [employer] Customer Service Name Role Phone Harrison Durham Primary Care Provider Leona vailable Unavailable Chronic Care Management Unavaila ble Summary Purpose DataExchange Insurance Providers Payer name Policy type / Coverage type Covered republican ID Effective Begin Date Effective End Date [place] Part B [id number] Unknown Unknown Medicaid [place] Medicare Part B [id number] Unknown Unknown Family history Sister Brittany Suggs [...] on file 07/11/[address]: [id number] Never smoker 01/16 Sexually Active? Unknown No [...] Single 10/07/2021 Living arrangements Unknown Snf 09/03/[address]: 682611061 No Alcohol Consum ption 09/02/2020 Allergies, Adverse Reactions, Alerts Substance Reaction Codes Entered Date Inactivated Date Status * NO KNOWN FOOD ALLERGIES Ovwpfdp0607/13/2023No Inactive DateActiveLISINOPRILRxNorm: 985624702/12/2020No Inactive DateActiveMetformin KEsXmujddq03/28/2020No Inactive DateActive* NO KNOWN ENVIRONMENTAL SMZMABFYPPfotdjg60/27/2024No Inactive DateActive Problems Condition Codes Effective Dates [...] planning - to document end of life ifetsfhpeorGhodlhi98/24/2024ctiveAmputated toe of right footICD-10: S98.131A ICD-9: 895.ctiveAnnual [...] E55.9 ICD-9: 268.909ctiveCallus of heelICD-10: L84 ICD-9: 99133/esolvedGout due to renal impairmentICD-10: M10.30 ICD-9: 274.1005esolvedHyperhidrosis of palmsICD-10: L74.512 ICD-9: 705.21010/12/2023esolvedHyperlipidemia, unspecifiedICD-10: E78.5 ICD-9: 272.405/esolvedOther prison (current) drug therapyICD-10: Z79.899 ICD-9: V58.6905/esolvedPain of [...] tagICD-10: L91.8 ICD-9: 701.904esolvedCoronary artery disease involving solomon coronary artery of solomon heart, angina presence unspecifiedICD-10: I25.10 ICD-9: 414.0102/4ActiveInappropriate sexual behaviorICD-10: Z72.89 ICD-9: 312.8910/ctivePre-op evaluationICD-10: Z01.818 ICD-9: V72.8403/ctiveSecondary hypertensionICD-10: I15.9 ICD-9: 405.9903/ctiveDepressionICD-10: F32.9 ICD-9: 755422ResolvedDVT (deep venous thrombosis)ICD-10: I82.409 ICD-9: 453.4009/2ResolvedEncounter for immunizationICD-10: Z23 ICD-9: V03.8909/2ResolvedLong term (current) use of insulinICD-10: Z79.4 2ResolvedMuscular painICD-10: M79.10 ICD-9: 729.109esolvedHypertension associated with diabetesICD-10: E11.59 ICD-9: 250.8008/2ResolvedContact with and (suspected) exposure to covid-19 ICD-10: Z20.822 ICD-9: V01.7908/1ResolvedOther infective acute otitis externa of left ear ICD-10: H60.392 ICD-9: 380.1008/1ResolvedScrotal skin lesionICD-10: N50.9 ICD-9: 608.908/1ResolvedAnemia due to stage 3b chronic kidney diseaseICD- 10: N18.32 ICD-9: 285.21051ResolvedChronic kidney disease, stage 3 unspecifiedICD- 10: N18.30041ResolvedContact with and (suspected) exposure to other viral communicable diseasesICD-10: Z20.828 ICD-9: V01.79022863LrleirzzBglzwgnjViluqgi80/28/2020ActiveDiabetes mellitus Type 9Ozwtuvi91/28/2020ActiveAnemia in chronic kidney diseaseICD-10: D63.1 02/12/2020ResolvedHyperlipidemia, unspecifiedICD-10: E78.509Resolved Medications Medication Codes Instructions Start Date Stop Date Status Fill Instructions senna 8.6 mg tablet RxNorm: 771461 Take 1 Tablet(s) Oral QD 07/18/19 25 03/24/2 025 Inactive ezetimibe 10 mg tablet RxNorm: 708169 Take 1 Tablet(s) Oral QD 07/18/19 25 No Stop Date Active metoprolol succinate ER 200 mg tablet,extended release 24 hr RxNorm: 363176 Take 1 Tablet(s) Oral QD 06/19/19 25 No Stop Date Active pantoprazole 40 mg tablet,delayed release RxNorm: 512046 Take 1 Tablet(s) Oral QAM every morning 06/19/19 25 No Stop Date Active hydralazine 50 mg tablet RxNorm: 335658 Take 1 Tablet(s) Oral QID 06/19/19 25 No Stop Date Active carbamazepine 200 mg tablet RxNorm: 211325 Take 1 Tablet(s) Oral BID 06/19/19 25 No Stop Date Active amlodipine 10 mg tablet RxNorm: 565572 Take 1 Tablet(s) Oral QD 06/19/19 25 No Stop Date Active Eliquis 5 mg tablet RxNorm: 9349694 Take 1 Tablet(s) Oral BID 06/19/19 25 No Stop Date Active pen needle, diabetic 30 gauge x 3/16 RxNorm: Use 1 6 times per day w/insulin 06/14/19 25 026 Active pen needle, diabetic 30 gauge x 3/16 RxNorm: Use 1 needle 6 times per day w/insulin 06/14/19 25 025 Inactive nystatin 100,000 unit/gram topical powder RxNorm: 682417 Apply 1 Application Topical BID as needed abdominal/breast /groin folds 05/24/19 25 026 Active pregabalin 100 mg capsule RxNorm: 164552 Take 1 Capsule(s) Oral QAM every morning 05/22/19 25 025 Inactive nystatin 100,000 unit/gram topical powder RxNorm: 184590 Apply 1 Application Topical BID as needed abdominal/breast /groin folds 04/11/20 24 024 Inactive chlorthalidone 25 mg tablet RxNorm: 405020 Take 1 Tablet(s) Oral QAM every morning 04/06/20 24 No Stop Date Active pregabalin 150 mg capsule RxNorm: 659087 Take 1 Capsule(s) Oral QHS every night at bedtime 03/31/20 24 024 Inactive Vascepa 1 gram capsule RxNorm: 3561203 Take 2 Capsule(s) Oral BID 03/30/20 24 025 Active rosuvastatin 40 mg tablet RxNorm: 537897 1 TAB ORALLY EVERY EVENING (DX:CORONARY ARTERY DISEASE) 03/28/20 No Stop Date Active venlafaxine ER 75 mg capsule,extended release 24 hr RxNorm: 076254 3 CAPS (225MG) ORALLY DAILY (DX: MOOD DISORDER) 03/28/20 No Stop Date Active pregabalin 100 mg capsule RxNorm: 247630 Take 1 Capsule(s) Oral QAM every morning 03/20/20 Inactive cholecalciferol (vitamin D3) 1,250 mcg (50,000 unit) capsule RxNorm: 047473 Take 1 Capsule(s) Oral QW once a [...] Insulin 100 unit/mL (3 mL) subcutaneous RxNorm: 5493785 Inject 40 Unit(s) Subcutaneous BID 03/07/20 025 Inactive Please dispense one month supply. Humulin R U-500 (Concentrated) Insulin 500 unit/mL subcutaneous soln RxNorm: 018832 Inject 100 Unit(s) Subcutaneous AC before meals [...] PRN) to be use with new Accu [place] meter 03/04/20 Inactive ok to substitute with any covered alternative test strip FreeStyle Chema 2 Sensor kit RxNorm: Use UD as directed 03/02/20 Inactive Pen Needle 30 gauge x 5/16 RxNorm: Pen(s) Use 1 needle as directed TID 03/02/20 Inactive nystatin 100,000 unit/gram topical powder RxNorm: 545185 Apply 1 Application Topical BID as needed [...] (Concentrated) Insulin 500 unit/mL subcutaneous soln RxNorm: 996844 Inject 100 Unit(s) Subcutaneous TID 02/17/20 24 024 Inactive Humulin R U-500 (Concentrated) Insulin 500 unit/mL subcutaneous soln RxNorm: 281889 Inject 100 Unit(s) Subcutaneous TID 02/10/20 24 024 Inactive Basaglar KwikPen U-100 Insulin 100 unit/mL (3 mL) subcutaneous RxNorm: 1724471 Inject 30 Unit(s) Subcutaneous BID 02/10/20 24 024 Inactive Please dispense one month supply. pregabalin 100 mg capsule RxNorm: 590056 Take 1 Capsule(s) Oral QAM every morning 02/07/20 Inactive isosorbide mononitrate ER 60 mg tablet,extended release 24 hr RxNorm: 481868 Take 1 Tablet(s) Oral QD 02/01/20 24 025 Active aripiprazole 15 mg tablet RxNorm: 984507 Take 1/2 Tablet(s) Oral QD 02/01/20 24 025 Active torsemide 20 mg tablet RxNorm: 553274 1 TAB ORALLY DAILY (DX: EDEMA) 01/27/20 No Stop Date Active potassium chloride ER 20 mEq tablet,extended release(part/cryst) RxNorm: 5981978 2 TABS (40MEQ) ORALLY TWICE DAILY (DX: HYPOKALEMIA) 01/27/20 24 025 Inactive cephalexin 500 mg capsule RxNorm: 289117 Take 1 Capsule(s) Oral QID 12/17/19 24 024 Inactive cephalexin 500 mg capsule RxNorm: 440118 Take 1 Capsule(s) Oral QID 12/17/19 24 024 Inactive acetaminophen 500 mg tablet RxNorm: 157771 (MAX APAP:4GM/24HR) Take 1 Tablet(s) Oral TID as needed for pain 12/10/19 24 024 Inactive torsemide 20 mg tablet RxNorm: 427290 Take 1 Tablet(s) Oral QD 10/26/19 24 Inactive potassium chloride ER 20 mEq tablet,extended release RxNorm: 203969 Take 2 Tablet(s) Oral BID 10/26/19 24 025 Inactive torsemide 20 mg tablet RxNorm: 685030 Take 1 Tablet(s) Oral QD 10/26/19 24 024 Inactive potassium chloride ER 20 mEq tablet,extended release RxNorm: 119127 Take 2 Tablet(s) Oral BID 10/26/19 24 024 Inactive Artificial Tears (PF) 0.1 %-0.3 % drops in a dropperette RxNorm: 120677 Apply 1-2 Drop(s) Both eyes BID as needed 09/28/19 24 025 Inactive erythromycin 5 mg/gram (0.5 %) eye ointment RxNorm: 743455 Apply 1 Application Both eyes QHS every night at bedtime Instill ~1 cm ribbon into affected eye 09/28/19 24 024 Inactive Artificial Tears (PF) 0.1 %-0.3 % drops in a dropperette RxNorm: 610682 Apply 1-2 Drop(s) Both eyes BID as needed 09/28/19 24 024 Inactive erythromycin 5 mg/gram (0.5 %) eye ointment RxNorm: 472822 Apply 1 Application Both eyes QHS every night at bedtime Instill ~1 cm ribbon into affected eye 09/28/19 24 Inactive acetaminophen 500 mg tablet RxNorm: 675500 (MAX APAP:4GM/24HR) Take 1 Tablet(s) Oral TID as needed for pain 09/24/19 24 Inactive carvedilol 25 mg tablet RxNorm: 167846 Take 1 Tablet(s) Oral QD 09/08/19 24 No Stop Date Active pregabalin 100 mg capsule RxNorm: 769699 Take 1 Capsule(s) Oral QAM every morning 09/07/19 24 024 Inactive ezetimibe 10 mg tablet RxNorm: 407754 Take 1 Tablet(s) Oral QD 07/13/19 24 025 Inactive bisacodyl 10 mg rectal suppository RxNorm: 109254 Insert 1 Suppository Rectal QD as needed 07/13/19 24 No Stop Date Active polyethylene glycol 3350 17 gram/dose oral powder RxNorm: 848862 Take 17 Gram(s) Oral BID as needed mix in 4-8ox water 07/13/19 24 025 Inactive ketoconazole 2 % shampoo RxNorm: 175507 Apply 1 Application Topical UD as directed 07/13/19 24 No Stop Date Active Ozempic 1 mg/dose (4 mg/3 mL) subcutaneous pen injector RxNorm: 7482259 Inject 1 Milligram(s) Subcutaneous QW once a week 07/13/19 24 No Stop Date Active Guaifenesin AC 10 mg-100 mg/5 mL oral liquid RxNorm: 046268 Take 10 Milliliter(s) Oral Q4H every four hours as needed 07/13/19 No Stop Date Active ammonium lactate 12 % topical cream RxNorm: 144781 Apply 1 Application Topical BID 07/13/19 24 025 Inactive hydrocortisone 2.5 % topical cream RxNorm: 171144 Apply 1 Application Topical BID as needed 07/13/19 No Stop Date Active rosuvastatin 20 mg sprinkle capsule RxNorm: 0654605 Take 1 Capsule(s) Oral QD 07/13/19 24 025 Inactive rosuvastatin 40 mg tablet RxNorm: 532922 Take 1 Tablet(s) Oral QPM every evening 07/13/19 024 Inactive aripiprazole 15 mg tablet RxNorm: 551141 Take 1/2 Tablet(s) Oral QD 07/13/19 24 024 Inactive isosorbide mononitrate ER 60 mg tablet,extended release 24 hr RxNorm: 419863 Take 1 Tablet(s) Oral QD 07/13/19 24 024 Inactive Vascepa 1 gram capsule RxNorm: 8849105 Take 2 Capsule(s) Oral BID 07/13/19 24 024 Inactive venlafaxine ER 75 mg capsule,extended release 24 hr RxNorm: 631982 Take 3 Capsule(s) Oral QD 07/13/19 24 024 Inactive Basaglar KwikPen U-100 Insulin 100 unit/mL (3 mL) subcutaneous RxNorm: 3488009 Inject 30U SubQ twice daily 07/07/19 24 024 Inactive Please dispense one month supply. Basaglar KwikPen U-100 Insulin 100 unit/mL (3 mL) subcutaneous RxNorm: 9296378 Inject 30U SubQ twice daily 07/07/19 24 024 Inactive Please dispense one month supply. pregabalin 150 mg capsule RxNorm: 394440 Take 1 Capsule(s) Oral QHS every night at bedtime 07/05/19 24 024 Inactive pregabalin 150 mg capsule RxNorm: 996922 Take 1 Capsule(s) Oral QHS every night at bedtime 07/05/19 024 Inactive polyethylene glycol 3350 17 gram/dose oral powder RxNorm: 016547 Take 1 Packet Oral QD as needed (1 packet = 17g) mix with 4-8oz of liquid 06/15/19 024 Inactive bisacodyl 10 mg rectal suppository RxNorm: 361499 Insert one suppository per rectum once daily as needed for constipation 06/15/19 024 Inactive bisacodyl 10 mg rectal suppository RxNorm: 970985 Insert one suppository per rectum once daily as needed for constipation 06/15/19 024 Inactive pregabalin 100 mg capsule RxNorm: 766309 Take 1 Capsule(s) Oral QAM every morning 04/27/20 024 Inactive Levemir FlexPen 100 unit/mL (3 mL) solution subcutaneous insulin pen RxNorm: 965231 Inject 30 Unit(s) Subcutaneous BID 04/27/20 024 Inactive rosuvastatin 40 mg tablet RxNorm: 050382 Take 1 Tablet(s) Oral QPM every evening 04/16/20 024 Inactive D/C rosuvastatin 20mg venlafaxine ER 75 mg capsule,extended release 24 hr RxNorm: 166849 Take 3 Capsule(s) Oral QD 04/14/20 023 Inactive pregabalin 100 mg capsule RxNorm: 089495 Take 1 Capsule(s) Oral QAM every morning [...] strip clotrimazole 1 % topical cream RxNorm: 343075 Take apply topically to abdominal folds twice daily for 14 days 03/12/20 024 Inactive Ozempic 1 mg/dose (4 mg/3 mL) subcutaneous pen injector RxNorm: 4476581 Inject 1 Milligram(s) Subcutaneous QW once a week 03/11/20 23 023 Inactive rosuvastatin 20 mg tablet RxNorm: 519351 Take 1 Tablet(s) Oral QD 02/26/20 23 023 Inactive d/c pravastatin 80mg Ozempic 1 mg/dose (4 mg/3 mL) subcutaneous pen injector RxNorm: 2593138 Inject 1 Milligram(s) Subcutaneous QW once a week 02/20/20 23 023 Inactive pregabalin 150 mg capsule RxNorm: 052541 Take 1 Capsule(s) Oral HS at bed time 02/19/20 23 023 Inactive pregabalin 100 mg capsule RxNorm: 848101 Take 1 Capsule(s) Oral QAM every morning 02/18/20 23 023 Inactive venlafaxine ER 75 mg capsule,extended release 24 hr RxNorm: 265133 Take 3 Capsule(s) Oral QD 02/04/20 23 023 Inactive FreeStyle Chema 2 Sensor kit RxNorm: use as directed 02/04/20 23 023 Inactive FreeStyle Chema 2 Sensor kit RxNorm: use as directed 02/04/20 23 024 Inactive fluconazole 150 mg tablet RxNorm: 133077 Take 1 Tablet(s) Oral on day 3 and on day 6 02/03/20 024 Inactive venlafaxine ER 150 mg capsule,extended release 24 hr RxNorm: 752448 Take 1 Capsule(s) Oral QD 02/03/20 23 023 Inactive chlorthalidone 25 mg tablet RxNorm: 511202 Take 1 Tablet(s) Oral QAM every morning 02/03/20 23 024 Inactive acetaminophen 500 mg tablet RxNorm: 130292 1 TABLET ORALLY 3 TIMES DAILY (MAX APAP:4GM/24HR) 12/15/19 23 023 Inactive clotrimazole 1 % topical cream RxNorm: 015607 apply 1g topically to top of feet and in between toes BID 12/09/19 23 025 Inactive potassium chloride ER 20 mEq tablet,extended release RxNorm: 639960 Take 1 Tablet(s) Oral BID 12/09/19 23 024 Inactive d/c 20mEq once daily (sent from hospital) nystatin 100,000 unit/gram topical powder RxNorm: 451060 APPLY TO AFFECTED AREAS TOPICALLY 2 TIMES DAILY 11/21/19 23 023 Inactive Nystop 100,000 unit/gram topical powder RxNorm: 779752 Apply to abd folds, under breasts and L side of groin Topical BID x 14 days, then BID PRN 11/20/19 023 Inactive dx: yeast dermatitis [place] Ultra Strength 4 %-30 %-10 % topical cream RxNorm: 348574 Apply 1 Gram(s) Topical QID PRN to feet and legs for neuropathic pain 11/11/19 024 Inactive clotrimazole 1 % topical cream RxNorm: 419022 Apply 1/2 Gram(s) Topical BID Apply to affected areas of groin, periarea, and abdominal topically 2 times daily 11/10/19 023 Inactive hydrocortisone 2.5 % topical cream RxNorm: 557233 Apply 1/2 Gram(s) Topical BID as needed 11/10/19 024 Inactive Levemir FlexPen 100 unit/mL (3 mL) solution subcutaneous insulin pen RxNorm: 655200 Inject 30 Unit(s) Subcutaneous BID 10/07/19 023 Inactive Humulin R U-500 (Concentrated) Insulin 500 unit/mL subcutaneous soln RxNorm: 084386 Inject 100 Unit(s) Subcutaneous TID 10/07/19 024 Inactive Ozempic 0.25 mg or 0.5 mg (2 mg/3 mL) subcutaneous pen injector RxNorm: 3148350 Inject 1/2 Milligram(s) Subcutaneous QW once a week 10/07/19 23 024 Inactive aripiprazole 15 mg tablet RxNorm: 022223 1/2 TAB (7.5MG) ORALLY DAILY (DX:MAJOR DEPRESSIVE DISORDER) 09/23/19 023 Inactive Accu-Chek Guide test strips RxNorm: Use 1 Test Strip QID 09/15/19 23 023 Inactive ok to substitute with any covered alternative test strip Lancets,Thin 28 gauge RxNorm: Use 1 as directed QID 09/15/19 23 023 Inactive torsemide 20 mg tablet RxNorm: 073321 Take 1 Tablet(s) Oral BID 09/09/19 23 024 Inactive d/c once daily dosing carvedilol 25 mg tablet RxNorm: 239205 Take 1 Tablet(s) Oral QD 08/25/19 23 024 Inactive pregabalin 150 mg capsule RxNorm: 987622 1 Capsule(s) Oral HS at bed time 08/18/19 23 023 Inactive pregabalin 100 mg capsule RxNorm: 711780 1 Capsule(s) Oral QAM every morning 08/18/19 23 023 Inactive carvedilol 25 mg tablet RxNorm: 334717 1 Tablet(s) Oral QD 07/28/19 23 023 Inactive lisinopril 20 mg tablet RxNorm: 269852 Give 1 Tablet(s) Oral QD 07/28/19 23 023 Inactive Lyrica 150 mg capsule RxNorm: 950008 Take 1 Capsule(s) Oral QHS every night at bedtime 07/19/19 23 023 Inactive d/c 100mg dose Diflucan 150 mg tablet RxNorm: 961415 Take 1 Tablet(s) Oral QD repeat on day 3 and 6 07/19/19 23 023 Inactive pregabalin 100 mg capsule RxNorm: 222766 Take 1 Capsule(s) Oral QAM every morning 07/19/19 23 023 Inactive gatifloxacin 0.5 % eye drops RxNorm: 933996 Instill 1 Drop(s) as directed TID Instill 1 drop in to affected eye(s) starting 1 day prior to surgery and continue until gone (do not exceed 4 weeks). 07/13/19 23 023 Inactive carvedilol 25 mg tablet RxNorm: 069826 2 Tablet(s) Oral BID 07/13/19 23 023 Inactive Humulin R Regular U-100 Insulin 100 unit/mL injection solution RxNorm: 199099 85 Unit(s) Injection TID 07/13/19 23 023 Inactive ketorolac 0.5 % eye drops RxNorm: 343855 Instill 1 Drop(s) as directed QID Instill 1 drop into affected eye(s) 4 times daily starting 1 day prior to surgery and continue until gone (do not exceed 4 weeks). 07/13/19 23 023 Inactive Diflucan 150 mg tablet RxNorm: 187204 Take 1 Tablet(s) Oral QD repeat on day 3 and 6 06/30/19 23 023 Inactive Accu-Chek Guide test strips RxNorm: Use 1 Test Strip QID Use 1 test strip to monitor blood glucose 4 times daily and as needed. Dx:E11.42. 06/23/19 23 023 Inactive ok to substitute with any covered alternative test strip dextromethorphan-gu aifenesin 10 mg-100 mg/5 mL oral liquid RxNorm: 512764 Take 10 Milliliter(s) Oral every 4 hours as needed for cough 06/19/19 23 023 Inactive dextromethorphan-gu aifenesin 10 mg-100 mg/5 mL oral liquid RxNorm: 536464 Take 10 Milliliter(s) Oral every 4 hours as needed for cough 06/19/19 23 023 Inactive Lyrica 150 mg capsule RxNorm: 342854 Take 1 Capsule(s) Oral QHS every night at bedtime 06/18/19 23 023 Inactive d/c 100mg dose aripiprazole 15 mg tablet RxNorm: 609273 /2 TAB (7.5MG) ORALLY DAILY (DX:MAJOR DEPRESSIVE DISORDER) 06/05/19 23 023 Inactive pregabalin 100 mg capsule RxNorm: 622778 1 Capsule(s) Oral QAM every morning 06/02/19 23 023 Inactive Banophen 50 mg capsule RxNorm: 6406991 Take 1 Capsule(s) Oral Q6H every 6 hours as needed 05/19/19 23 No Stop Date Active Novolog Flexpen U-100 Insulin aspart 100 unit/mL (3 mL) subcutaneous RxNorm: 3700432 Inject 10 Unit(s) Subcutaneous QHS every night at bedtime with nighttime snack 04/08/20 022 Inactive Novolog Flexpen U-100 Insulin aspart 100 unit/mL (3 mL) subcutaneous RxNorm: 3796535 Inject 42 Unit(s) Subcutaneous TID in addition to sliding scale 04/08/20 Inactive d/c 36u albuterol sulfate HFA 90 mcg/actuation aerosol inhaler RxNorm: 6556616 Take 2 Puff(s) Inhalation Q4H every four hours as needed as needed for SOB, cough, or wheezing 04/07/20 030 Active Banophen 50 mg capsule RxNorm: 9765379 Take 1 Capsule(s) Oral Q6H every 6 hours as needed 04/06/20 023 Inactive diphenhydramine 50 mg tablet RxNorm: 8119427 Take 1 Tablet(s) Oral Q6H every 6 hours as needed 04/06/20 022 Inactive diphenhydramine 50 mg tablet RxNorm: 0122306 1 Tablet(s) Oral Q6H every 6 hours as needed 04/06/20 022 Inactive Abilify 15 mg tablet RxNorm: 503606 1/2 Tablet(s) Oral QD 03/10/20 023 Inactive Shingrix (PF) 50 mcg/0.5 mL intramuscular suspension, kit RxNorm: 9850634 Administer 1/2 Milliliter(s) Intramuscular QD one time shingrix step 2 ( step 1 given 11/04/21) WITH needle - Nursing please administer upon arrival and once administered post a bridge message with date of administration, application security developer, expiration date, and lot# so we can update [facility] 02/18/20 022 Inactive dispense with needle Shingrix (PF) 50 mcg/0.5 mL intramuscular suspension, kit RxNorm: 4296299 Administer 1/2 Milliliter(s) Intramuscular QD one time shingrix step 2 ( step 1 given 11/04/21) WITH needle - Nursing please administer upon arrival and once administered post a bridge message with date of administration, application security developer, expiration date, and lot# so we can update [facility] 02/18/20 22 022 Inactive dispense with needle polyethylene glycol 3350 17 gram/dose oral powder RxNorm: 854960 Take 17=1 capful Gram(s) Oral QD mix with 4-8oz of liquid 01/08/20 22 025 Inactive take this in addition to BID prn order Lyrica 100 mg capsule RxNorm: 778777 Take 1 Capsule(s) Oral QAM every morning 01/08/20 22 022 Inactive d/c 50mg dose acetaminophen 500 mg tablet RxNorm: 566729 Take 1 Tablet(s) Oral TID 01/08/20 22 022 Inactive d/c PRN order Lyrica 150 mg capsule RxNorm: 213100 Take 1 Capsule(s) Oral QHS every night at bedtime 01/08/20 22 023 Inactive d/c 100mg dose Abilify 5 mg tablet RxNorm: 719791 Take 1 Tablet(s) Oral QD take 1 tab po QD #30 refill 5 dx: MDD 12/12/19 22 022 Inactive Abilify 5 mg tablet RxNorm: 366667 Take 1 Tablet(s) Oral QD take 1 tab po QD #30 refill 5 dx: MDD 12/12/19 22 022 Inactive Novolog Flexpen U-100 Insulin aspart 100 unit/mL (3 mL) subcutaneous RxNorm: 0648255 Inject 42 Unit(s) Subcutaneous TID in addition to sliding scale 12/10/19 22 022 Inactive d/c 36u chlorthalidone 25 mg tablet RxNorm: 765232 Take 1 Tablet(s) Oral QAM every morning 12/10/19 22 023 Inactive pregabalin 50 mg capsule RxNorm: 139212 Take 1 Capsule(s) Oral QAM every morning 11/12/19 22 022 Inactive tetanus-diphtheria toxoids-Td 2 Lf unit-2 Lf unit/0.5 mL IM suspension RxNorm: 139 Take 0.5 Miscellaneous Intramuscular 11/12/19 22 022 Inactive need tdap - nursing to administer upon arrival pregabalin 50 mg capsule RxNorm: 685844 Take 1 Capsule(s) Oral QAM every morning 10/16/19 22 022 Inactive pregabalin 50 mg capsule RxNorm: 565186 Take 1 Capsule(s) Oral QAM every morning 10/16/19 22 022 Inactive pregabalin 50 mg capsule RxNorm: 858625 1 Capsule(s) Oral QAM every morning 10/15/19 22 022 Inactive Shingrix (PF) 50 mcg/0.5 mL intramuscular suspension, kit RxNorm: 4263040 Administer 1/2 Milliliter(s) Intramuscular one time Nursing please administer upon arrival and once administered post a bridge message with date of administration, application security developer, expiration date, and lot# so we can update [facility]. 10/09/19 22 022 Inactive shingrix step 1 Shingrix (PF) 50 mcg/0.5 mL intramuscular suspension, kit RxNorm: 5677286 Administer 1/2 Milliliter(s) Intramuscular one time Nursing please administer upon arrival and once administered post a bridge message with date of administration, application security developer, expiration date, and lot# so we [...] aspart 100 unit/mL (3 mL) subcutaneous RxNorm: 0982383 Inject 10 Unit(s) Subcutaneous QHS every night at bedtime with nighttime snack 10/08/19 22 022 Inactive Shingrix (PF) 50 mcg/0.5 mL intramuscular suspension, kit RxNorm: 5690181 ADMINISTER 2-DOSE SERIES PER CDC GUIDELINES 10/08/19 22 022 Active Shingrix (PF) 50 mcg/0.5 mL intramuscular suspension, kit RxNorm: 7130123 ADMINISTER 2-DOSE SERIES PER CDC GUIDELINES 10/08/19 22 Inactive Novolog Flexpen U-100 Insulin aspart 100 unit/mL (3 mL) subcutaneous RxNorm: 1791362 Inject 36 Unit(s) Subcutaneous TID in addition to sliding scale 10/08/19 Inactive cholecalciferol (vitamin D3) 1,250 mcg (50,000 unit) capsule RxNorm: 000259 Take 1 Capsule(s) Oral QW once a week 10/08/19 Inactive Novofine Autocover 30 gauge x 1/3 needle RxNorm: Use 1 Miscellaneous UD as directed Use 1 needle as directed to administer insulin 5 times a day Dx:E11.42. 10/03/19 Inactive ok to substitute with any covered alternative pen needle benzoyl peroxide 10 % topical cleanser RxNorm: 252437 Apply 1 Application Topical QD apply to face, wash rinse and dry once daily (may change to QOD if drying) 08/19/19 22 022 Inactive (%covered by insurance) #60ml refill 11 dx: acne benzoyl peroxide 10 % topical cleanser RxNorm: 750326 Apply 1 Application Topical QD apply to face, wash rinse and dry once daily (may change to QOD if drying) 08/19/19 22 022 Inactive (%covered by insurance) #60ml refill 11 dx: acne benzoyl peroxide 10 % topical cleanser RxNorm: 528636 Apply 1 Application Topical QD apply to face, wash rinse and dry once daily (may change to QOD if drying) 08/19/19 22 022 Inactive (%covered by insurance) #60ml refill 11 dx: acne Lyrica 50 mg capsule RxNorm: 581070 Take 1 Capsule(s) Oral QAM every morning Take 1 capsule by mouth once daily 08/19/19 22 022 Inactive benzoyl peroxide 10 % topical cleanser RxNorm: 720963 Apply 1 Application Topical QD apply to face, wash rinse and dry once daily (may change to QOD if drying) 08/19/19 22 022 Inactive (%covered by insurance) #60ml refill 11 dx: acne Lyrica 100 mg capsule RxNorm: 602282 Take 1 Capsule(s) Oral QHS every night at bedtime Take 1 capsule by mouth once daily at bedtime 08/19/19 22 022 Inactive Lyrica 100 mg capsule RxNorm: 944093 Take 1 Capsule(s) Oral QHS every night at bedtime Take 1 capsule by mouth once daily at bedtime 08/16/19 22 022 Inactive Lyrica 50 mg capsule RxNorm: 265112 Take 1 Capsule(s) Oral QAM every morning Take 1 capsule by mouth once daily 08/16/19 22 Inactive Levemir FlexTouch U-100 Insulin 100 unit/mL (3 mL) subcutaneous pen RxNorm: 470535 Inject 86 Unit(s) Subcutaneous BID 08/05/19 22 022 Inactive d/c 83units BID Lyrica 100 mg capsule RxNorm: 702684 Take 1 Capsule(s) Oral QHS every night at bedtime Take 1 capsule by mouth once daily at bedtime 07/14/19 22 022 Inactive Lyrica 50 mg capsule RxNorm: 841478 Take 1 Capsule(s) Oral QAM every morning Take 1 capsule by mouth once daily 07/14/19 22 022 Inactive Levemir FlexTouch U-100 Insulin 100 unit/mL (3 mL) subcutaneous pen RxNorm: 666594 Inject 83 Unit(s) Subcutaneous BID 07/08/19 22 [...] test strip hydralazine 50 mg tablet RxNorm: 188581 Take 1 Tablet(s) Oral QID 05/05/20 21 022 Inactive venlafaxine ER 225 mg tablet,extended release 24 hr RxNorm: 132509 Take 1 Tablet(s) Oral QD 05/05/20 21 021 Inactive venlafaxine ER 225 mg tablet,extended release 24 hr RxNorm: 829644 Take 1 Tablet(s) Oral QD 05/05/20 21 022 Inactive isosorbide mononitrate ER 30 mg tablet,extended release 24 hr RxNorm: 208076 Take 1 Tablet(s) Oral QD 05/05/20 21 024 Inactive hydralazine 50 mg tablet RxNorm: 074852 Take 1 Tablet(s) Oral QID 05/05/20 21 021 Inactive aspirin 81 mg tablet,delayed release RxNorm: 039603 Take 1 Tablet(s) Oral QD 03/31/20 21 022 Inactive Vitamin D2 1,250 mcg (50,000 unit) capsule RxNorm: 1385984 Take 1 Capsule(s) Oral QW once a week x 12 weeks 03/31/20 022 Inactive Vitamin D2 1,250 mcg (50,000 unit) capsule RxNorm: 7409375 Take 1 Capsule(s) Oral QW once a week 03/31/20 021 Inactive Zetia 10 mg tablet RxNorm: 760852 Take 1 Tablet(s) Oral QD 03/31/20 024 Inactive Zetia 10 mg tablet RxNorm: 869665 Take 1 Tablet(s) Oral QD 03/31/20 021 Inactive hydralazine 25 mg tablet RxNorm: 694906 Take 1 Tablet(s) Oral QID 03/31/20 021 Inactive hydralazine 25 mg tablet RxNorm: 173902 Take 1 Tablet(s) Oral QID 03/31/20 021 Inactive hydralazine 10 mg tablet RxNorm: 338278 Take 1 Tablet(s) Oral QID 03/03/20 021 Inactive cephalexin 500 mg tablet RxNorm: 174848 Take 1 Tablet(s) Oral QID 02/27/20 021 Inactive cephalexin 500 mg tablet RxNorm: 349730 Take 1 Tablet(s) Oral QID 02/27/20 021 Inactive lisinopril 40 mg tablet RxNorm: 827964 Take 1 Tablet(s) Oral QD 02/11/20 023 Inactive Eliquis 5 mg tablet RxNorm: 5950815 Take 1 Tablet(s) Oral BID 01/05/20 21 025 Inactive Eliquis 5 mg tablet RxNorm: 5693114 Take 2 Tablet(s) Oral QD 01/01/20 21 021 Inactive Lyrica 50 mg capsule RxNorm: 015418 Take 1 Capsule(s) Oral QAM every morning 12/24/19 21 021 Inactive Lyrica 100 mg capsule RxNorm: 435410 Take 1 Capsule(s) Oral QHS every night at bedtime 12/24/19 021 Inactive clotrimazole 1 % topical cream RxNorm: 412087 Apply to right foot and toes Topical BID 12/04/19 21 023 Inactive metoprolol succinate ER 200 mg tablet,extended release 24 hr RxNorm: 030140 Take 1 Tablet(s) Oral QD 12/04/19 21 023 Inactive ciprofloxacin 500 mg tablet RxNorm: 312190 Take 1 Tablet(s) Oral QD 11/30/19 21 021 Inactive DX ofloxacin otic drops Accu-Chek Guide test strips RxNorm: USE 1 TO CHECK GLUCOSE 4 TIMES DAILY AND NEEDED 11/15/19 21 023 Inactive Blood Glucose Test strips RxNorm: Use 1 Test Strip QID at PRN 11/05/19 21 023 Inactive E11.42 lisinopril 30 mg tablet RxNorm: 480142 Take 1 Tablet(s) Oral QD 10/30/19 21 021 Inactive lisinopril 20 mg tablet RxNorm: 630141 Take 1 Tablet(s) Oral QD 10/23/19 21 021 Inactive lisinopril 20 mg tablet RxNorm: 535961 Take 1 Tablet(s) Oral QD 10/23/19 21 021 Inactive lisinopril 10 mg tablet RxNorm: 244907 Take 1 Tablet(s) Oral QD 10/02/19 21 021 Inactive icosapent ethyl 1 gram capsule RxNorm: 2478387 Take 2 Capsule(s) (2 gm) Oral BID with meals 09/12/19 21 024 Inactive Okay to dispense one 2gm tab if you have that available. icosapent ethyl 1 gram capsule RxNorm: 0951382 Take 2 Capsule(s) Oral BID 09/12/19 21 021 Inactive Okay to dispense one 2gm tab if you have that available. amlodipine 10 mg tablet RxNorm: 070275 Take 1 Tablet(s) Oral QD 09/04/19 21 021 Inactive aspirin 81 mg tablet,delayed release RxNorm: 820505 Take 1 Tablet(s) Oral QD 09/04/19 21 021 Inactive Levemir FlexTouch U-100 Insulin 100 unit/mL (3 mL) subcutaneous pen RxNorm: 415651 Inject 150 Unit(s) Subcutaneous BID 09/04/19 022 Inactive venlafaxine ER 150 mg tablet,extended release 24 hr RxNorm: 785335 Take 1 Tablet(s) Oral QD 09/04/19 021 Inactive clotrimazole-betame thasone 1 %-0.05 % topical cream RxNorm: 633430 Apply to rash on red area on left abdomen/chest Topical BID 08/10/19 21 021 Inactive amlodipine 5 mg tablet RxNorm: 283401 Take 1 Tablet(s) Oral QD 07/31/19 021 Inactive cephalexin 500 mg tablet RxNorm: 490006 Take 1 Tablet(s) Oral BID BID - Twice Daily 07/31/19 021 Inactive Start 08/01/20 senna 8.6 mg tablet RxNorm: 962708 Take 1 Tablet(s) Oral QD 07/08/19 025 Inactive pantoprazole 40 mg tablet,delayed release RxNorm: 295907 Take 1 Tablet(s) Oral QAM every morning 07/08/19 025 Inactive clopidogrel 75 mg tablet RxNorm: 706739 Take 1 Tablet(s) Oral QD 07/08/19 021 Inactive Blood Glucose Test strips RxNorm: Use 1 Test Strip QID at PRN 07/08/19 Inactive E11.42 Novolog Flexpen U-100 Insulin aspart 100 unit/mL (3 mL) subcutaneous RxNorm: 2359365 Administer per sliding scale Milliliter(s) Subcutaneous TID 151-200: 10 u; 201-250: 20 u; 251-300: 30 u; 301-350: 40 u; 351-400: 50 u. 07/08/19 21 022 Inactive lisinopril 5 mg tablet RxNorm: 640964 Take 1 Tablet(s) Oral QD 07/08/19 021 Inactive Novolog Flexpen U-100 Insulin aspart 100 unit/mL (3 mL) subcutaneous RxNorm: 8455954 Inject 85 Unit(s) Subcutaneous TID 07/08/19 022 Inactive pravastatin 80 mg tablet RxNorm: 518084 Take 1 Tablet(s) Oral QHS every night at bedtime 07/08/19 023 Inactive clotrimazole 1 % topical cream RxNorm: 547650 Apply to bilateral groin areas Topical BID 07/08/19 022 Inactive metoprolol succinate ER 200 mg tablet,extended release 24 hr RxNorm: 673796 Take 1 Tablet(s) Oral QD 07/08/19 021 Inactive Vitamin D3 25 mcg (1,000 unit) tablet RxNorm: 469477 Take 1 Tablet(s) Oral QD 07/08/19 021 Inactive isosorbide dinitrate 30 mg tablet RxNorm: 984625 Take 1 Tablet(s) Oral QD 07/08/19 021 Inactive carbamazepine 200 mg tablet RxNorm: 055608 Take 1 Tablet(s) Oral BID 07/08/19 025 Inactive Levemir FlexTouch U-100 Insulin 100 unit/mL (3 mL) subcutaneous pen RxNorm: 677227 Inject 140 Unit(s) Subcutaneous BID 07/08/19 021 Inactive torsemide 20 mg tablet RxNorm: 262481 Take 1 Tablet(s) Oral QD 07/08/19 023 Inactive venlafaxine 75 mg tablet RxNorm: 592103 Take 1 Tablet(s) Oral QD 07/08/19 021 Inactive acetaminophen 500 mg tablet RxNorm: 851414 Take 1 Tablet(s) Oral TID as needed for headache 06/18/19 021 Inactive acetaminophen 500 mg tablet RxNorm: 004709 Take 1 Tablet(s) Oral TID as needed for headache 06/18/19 21 021 Inactive Lyrica 100 mg capsule RxNorm: 398753 Take 1 Capsule(s) Oral QHS every night at bedtime 06/11/19 021 Inactive Lyrica 50 mg capsule RxNorm: 839844 Take 1 Capsule(s) Oral QAM every morning 06/10/19 21 021 Inactive hydrocortisone 2.5 % topical cream RxNorm: 910093 Apply to bilateral groin creases Topical BID 05/15/20 20 021 Inactive clotrimazole 1 % topical cream RxNorm: 698108 Apply to bilateral groin areas Topical BID 05/15/20 20 021 Inactive Lyrica 50 mg capsule RxNorm: 264248 Take 1 Capsule(s) Oral QAM every morning 05/14/20 20 020 Inactive Lyrica 100 mg capsule RxNorm: 546322 Take 1 Capsule(s) Oral QHS every night [...] Inactive Nystop 100,000 unit/gram topical powder RxNorm: 577774 Apply to abd folds, under breasts and L side of groin Topical BID x 14 days, then BID PRN 04/08/20 20 020 Inactive dx: yeast dermatitis Lyrica 100 mg capsule RxNorm: 832628 Take 1 Capsule(s) Oral QHS every night at bedtime 03/13/20 20 020 Inactive Lyrica 50 mg capsule RxNorm: 047993 Take 1 Capsule(s) Oral QAM every morning 03/13/20 20 020 Inactive ketoconazole 2 % shampoo RxNorm: 593651 Apply Topical two times a week with showers 03/11/20 20 024 Inactive cholecalciferol (vitamin D3) 50 mcg (2,000 unit) tablet RxNorm: 132555 Take 1 Tablet(s) Oral QD 03/11/20 20 021 Inactive Zetia 10 mg tablet RxNorm: 428500 Take 1 Tablet(s) Oral QD 03/07/20 20 021 Inactive Zetia 10 mg tablet RxNorm: 870323 Take 1 Tablet(s) Oral QD 03/07/20 20 020 Inactive Lyrica 50 mg capsule RxNorm: 026337 Take 1 Capsule(s) Oral QAM every morning 02/15/20 20 Inactive Lyrica 100 mg capsule RxNorm: 130539 Take 1 Capsule(s) Oral QHS every night at bedtime 02/15/20 Inactive Lyrica 100 mg capsule RxNorm: 964484 Take 1 Capsule(s) Oral QHS every night at bedtime 02/15/20 020 Inactive Lyrica 50 mg capsule RxNorm: 870738 Take 1 Capsule(s) Oral QAM every morning 02/15/20 020 Inactive loperamide 2 mg capsule RxNorm: 738237 Take 1 Capsule(s) Oral QID as needed 09/06/19 25 025 Inactive venlafaxine ER 75 mg capsule,extended release 24 hr RxNorm: 295494 Take 3 Capsule(s) Oral QD 06/12/19 22 023 Inactive polyethylene glycol 3350 17 gram/dose oral powder RxNorm: 222899 Take 17=1 capful Gram(s) Oral BID as needed mix with 4-8oz of liquid 06/12/19 22 024 Inactive icosapent ethyl 1 gram capsule RxNorm: 6232939 Take 2 Capsule(s) (2 gm) Oral BID with meals 10/07/19 23 023 Inactive Okay to dispense one 2gm tab if you have that available. Levemir FlexTouch U-100 Insulin 100 unit/mL (3 mL) subcutaneous pen RxNorm: 166932 Inject 80 Unit(s) Subcutaneous BID 07/14/19 23 023 Inactive metoprolol succinate ER 200 mg tablet,extended release 24 hr RxNorm: 435758 Take 1 Tablet(s) Oral QD 08/12/19 23 025 Inactive hydralazine 50 mg tablet RxNorm: 008249 Take 1 Tablet(s) Oral QID 08/12/19 23 025 Inactive Soft Touch Lancets RxNorm: miscellaneous 03/04/20 24 025 Inactive Novolog Flexpen U-100 Insulin aspart 100 unit/mL (3 mL) subcutaneous RxNorm: 9937021 Insert 30 Unit(s) Subcutaneous TID with meals [...] Planned Activity Notes Codes Status Date Referral: [facility] [address] [id number] [place]ReferralAppointment Hhfwhaiiy46/06/2025Referral: [facility]/Endocrinology WPtel: [address] [facility] [address] [id number] [place]ReferralNo Records Phgitjds46/24/2025Referral: [facility] WPtel: [address] [facility] [address] , [address] [id number] [place]ReferralRecords Gsuidazv26/08/2023Referral: [facility] WPtel: [address] [facility] [address] [id number]/12/2022Referral: General CardiologyReferralCompleted 1Referral: General PsychologistReferralClosedReferral: General PsychiatristReferralPatient/Family [...] Sister Jyotsna involved in his care cell# [phone] Guardian: Don (tapan met in person 09/01/21), now has Lexii (same group as don)AWV 9. Lab Schedule: Mar-/September*September (CBC with diff, [...] appointment 05.26.2024 with Jessa Webster MD at [facility]. Start Pioglitazone 15 mg QD. Stop Basaglar insulin. Increase Ozempic 2 mg once wkly. Continue Humalin R U-500 100 units with meals TID. FOLLOW UP 2 MONTHS. If BG >400 add 50 units to next scheduled dose of Humalin R U 500 insulin 06/12/2024
--- OUTSIDE RECORDS SUMMARY | 2024-10-19 18:24 | XMS_ITS | CCD ---
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 Newsperson Name Role Phone Arpit VIDALKeeganHarrison Primary Care Provider Leona vailable Unavailable Chronic Care Management Unavaila ble Summary Purpose DataExchange Insurance Providers Payer name Policy type / Coverage type Covered green party ID Effective Begin Date Effective End Date [place] [id number] Unknown Unknown [place] B [id number] Unknown Unknown Family history Sister Brittany Suggs Diagnosis Age At Onset No Family Disease Entered N/A Runs in the family Diagnosis Age At Onset No Known Diseases N/A Sister Blanka Mcduffie Diagnosis Age At Onset No Family Disease Entered N/A Social History Social History Element Codes Description Effec tive Dates Tobacco history SNOMED CT: 062811688 Never smoker 01/16 Sexually Active? Unknown No [...] Shelter 09/03/[address]: 956037498 No Alcohol Consum ption 09/02/2020 Allergies, Adverse Reactions, Alerts Substance Reaction Codes Entered Date Inactivated Date Status * NO KNOWN FOOD ALLERGIES [id number]/13/2023No Inactive DateActiveLISINOPRILRxNorm: 5851274No Inactive DateActiveMetformin SOoGrmrhss46/28/2020No Inactive DateActive* NO KNOWN ENVIRONMENTAL [id number]/27/2024No Inactive DateActive Problems Condition Codes Effective Dates [...] planning - to document end of life lzgckzfpfkwKxedrik17/24/2024ctiveAdvance care planningICD-10: Z71.89 ICD-9: V65.4909/ctiveAmputated toe of [...] E55.9 ICD-9: 268.909/ctiveCallus of heelICD-10: L84 ICD-9: 01311/esolvedGout due to renal impairmentICD-10: M10.30 ICD-9: 274.1005/esolvedHyperhidrosis of palmsICD-10: L74.512 ICD-9: 705.2105/esolvedHyperlipidemia, unspecifiedICD-10: E78.5 ICD-9: 272.405/esolvedOther assisted (current) drug therapyICD-10: Z79.899 ICD-9: V58.6905/esolvedPain of [...] tagICD-10: L91.8 ICD-9: 701.904/esolvedCoronary artery disease involving [place] coronary artery of [place] heart, angina presence unspecifiedICD-10: I25.10 ICD-9: 414.0102/4ActiveInappropriate sexual behaviorICD-10: Z72.89 ICD-9: 312.8910/ctivePre-op evaluationICD-10: Z01.818 ICD-9: V72.8403/ctiveSecondary hypertensionICD-10: I15.9 ICD-9: 405.9903/ctiveDepressionICD-10: F32.9 ICD-9: 37843/esolvedDVT (deep venous thrombosis)ICD-10: I82.409 ICD-9: 453.4009/esolvedEncounter for [...] to other viral communicable diseasesICD-10: Z20.828 ICD-9: V01.7902/8477FivublpfXzudlcnqDfmbpzr55/28/2020ActiveDiabetes mellitus Type 0Aghkmic53/28/2020ActiveAnemia in chronic kidney diseaseICD-10: D63.1 02/12/2020ResolvedHyperlipidemia, unspecifiedICD-10: E78.509Resolved Medications Medication Codes Instructions Start Date Stop Date Status Fill Instructions pregabalin 150 mg capsule RxNorm: 455431 Take 1 Capsule(s) Oral QHS every night at bedtime 03/31/20 024 Inactive Vascepa 1 gram capsule RxNorm: 7201514 Take 2 Capsule(s) Oral BID 03/30/20 24 025 Active rosuvastatin 40 mg tablet RxNorm: 476124 1 TAB ORALLY EVERY EVENING (DX:CORONARY ARTERY DISEASE) 03/28/20 24 No Stop Date Active venlafaxine ER 75 mg capsule,extended release 24 hr RxNorm: 824180 3 CAPS (225MG) ORALLY DAILY (DX: MOOD DISORDER) 03/28/20 No Stop Date Active pregabalin 100 mg capsule RxNorm: 248595 Take 1 Capsule(s) Oral QAM every morning 03/20/20 Inactive cholecalciferol (vitamin D3) 1,250 mcg (50,000 unit) capsule RxNorm: 905911 Take 1 Capsule(s) Oral QW once a [...] Insulin 100 unit/mL (3 mL) subcutaneous RxNorm: 7397515 Inject 40 Unit(s) Subcutaneous BID 03/07/20 025 Inactive Please dispense one month supply. Humulin R U-500 (Concentrated) Insulin 500 unit/mL subcutaneous soln RxNorm: 362076 Inject 100 Unit(s) Subcutaneous AC before meals [...] PRN) to be use with new Accu Guy meter 03/04/20 Inactive ok to substitute with any covered alternative test strip FreeStyle Chema 2 Sensor kit RxNorm: Use UD as directed 03/02/20 025 Inactive FreeStyle Chema 2 Sensor kit RxNorm: Use UD as directed 03/02/20 Inactive Pen Needle 30 gauge x 516 RxNorm: Pen(s) Use 1 needle as directed TID 03/02/20 Inactive nystatin 100,000 unit/gram topical powder RxNorm: 807296 Apply 1 Application Topical BID as needed [...] (Concentrated) Insulin 500 unit/mL subcutaneous soln RxNorm: 089319 Inject 100 Unit(s) Subcutaneous TID 02/17/20 24 024 Inactive Humulin R U-500 (Concentrated) Insulin 500 unit/mL subcutaneous soln RxNorm: 695751 Inject 100 Unit(s) Subcutaneous TID 02/10/20 24 024 Inactive Basaglar KwikPen U-100 Insulin 100 unit/mL (3 mL) subcutaneous RxNorm: 9196869 Inject 30 Unit(s) Subcutaneous BID 02/10/20 24 024 Inactive Please dispense one month supply. pregabalin 100 mg capsule RxNorm: 064568 Take 1 Capsule(s) Oral QAM every morning 02/07/20 24 024 Inactive isosorbide mononitrate ER 60 mg tablet,extended release 24 hr RxNorm: 138113 Take 1 Tablet(s) Oral QD 02/01/20 24 025 Active aripiprazole 15 mg tablet RxNorm: 334373 Take 1/2 Tablet(s) Oral QD 02/01/20 24 025 Active torsemide 20 mg tablet RxNorm: 214517 1 TAB ORALLY DAILY (DX: EDEMA) 01/27/20 No Stop Date Active potassium chloride ER 20 mEq tablet,extended release(part/cryst) RxNorm: 8641736 2 TABS (40MEQ) ORALLY TWICE DAILY (DX: HYPOKALEMIA) 01/27/20 24 025 Inactive cephalexin 500 mg capsule RxNorm: 049562 Take 1 Capsule(s) Oral QID 12/17/19 24 024 Inactive cephalexin 500 mg capsule RxNorm: 869917 Take 1 Capsule(s) Oral QID 12/17/19 24 024 Inactive acetaminophen 500 mg tablet RxNorm: 109691 (MAX APAP:4GM/24HR) Take 1 Tablet(s) Oral TID as needed for pain 12/10/19 24 024 Inactive torsemide 20 mg tablet RxNorm: 322643 Take 1 Tablet(s) Oral QD 10/26/19 24 025 Inactive potassium chloride ER 20 mEq tablet,extended release RxNorm: 19800522 Take 2 Tablet(s) Oral BID 10/26/19 24 025 Inactive torsemide 20 mg tablet RxNorm: 221324 Take 1 Tablet(s) Oral QD 10/26/19 24 024 Inactive potassium chloride ER 20 mEq tablet,extended release RxNorm: 030759 Take 2 Tablet(s) Oral BID 10/26/19 24 024 Inactive Artificial Tears (PF) 0.1 %-0.3 % drops in a dropperette RxNorm: 001142 Apply 1-2 Drop(s) Both eyes BID as needed 09/28/19 24 025 Inactive erythromycin 5 mg/gram (0.5 %) eye ointment RxNorm: 073918 Apply 1 Application Both eyes QHS every night at bedtime Instill ~1 cm ribbon into affected eye 09/28/19 24 024 Inactive Artificial Tears (PF) 0.1 %-0.3 % drops in a dropperette RxNorm: 796814 Apply 1-2 Drop(s) Both eyes BID as needed 09/28/19 24 024 Inactive erythromycin 5 mg/gram (0.5 %) eye ointment RxNorm: 998481 Apply 1 Application Both eyes QHS every night at bedtime Instill ~1 cm ribbon into affected eye 09/28/19 24 024 Inactive acetaminophen 500 mg tablet RxNorm: 740778 (MAX APAP:4GM/24HR) Take 1 Tablet(s) Oral TID as needed for pain 09/24/19 24 024 Inactive carvedilol 25 mg tablet RxNorm: 770530 Take 1 Tablet(s) Oral QD 09/08/19 No Stop Date Active pregabalin 100 mg capsule RxNorm: 505131 Take 1 Capsule(s) Oral QAM every morning 09/07/19 24 024 Inactive ezetimibe 10 mg tablet RxNorm: 013869 Take 1 Tablet(s) Oral QD 07/13/19 24 025 Inactive bisacodyl 10 mg rectal suppository RxNorm: 035312 Insert 1 Suppository Rectal QD as needed 07/13/19 No Stop Date Active polyethylene glycol 3350 17 gram/dose oral powder RxNorm: 283215 Take 17 Gram(s) Oral BID as needed mix in 4-8ox water 07/13/19 24 025 Inactive ketoconazole 2 % shampoo RxNorm: 492068 Apply 1 Application Topical UD as directed 07/13/19 No Stop Date Active Ozempic 1 mg/dose (4 mg/3 mL) subcutaneous pen injector RxNorm: 9073783 Inject 1 Milligram(s) Subcutaneous QW once a week 07/13/19 24 No Stop Date Active Guaifenesin AC 10 mg-100 mg/5 mL oral liquid RxNorm: 622243 Take 10 Milliliter(s) Oral Q4H every four hours as needed 07/13/19 No Stop Date Active ammonium lactate 12 % topical cream RxNorm: 753209 Apply 1 Application Topical BID 07/13/19 24 025 Inactive hydrocortisone 2.5 % topical cream RxNorm: 122091 Apply 1 Application Topical BID as needed 07/13/19 No Stop Date Active rosuvastatin 20 mg sprinkle capsule RxNorm: 3472756 Take 1 Capsule(s) Oral QD 07/13/19 24 025 Inactive rosuvastatin 40 mg tablet RxNorm: 101762 Take 1 Tablet(s) Oral QPM every evening 07/13/19 024 Inactive aripiprazole 15 mg tablet RxNorm: 822189 Take 1/2 Tablet(s) Oral QD 07/13/19 24 024 Inactive isosorbide mononitrate ER 60 mg tablet,extended release 24 hr RxNorm: 649596 Take 1 Tablet(s) Oral QD 07/13/19 24 024 Inactive Vascepa 1 gram capsule RxNorm: 7189922 Take 2 Capsule(s) Oral BID 07/13/19 24 024 Inactive venlafaxine ER 75 mg capsule,extended release 24 hr RxNorm: 283707 Take 3 Capsule(s) Oral QD 07/13/19 24 024 Inactive Basaglar KwikPen U-100 Insulin 100 unit/mL (3 mL) subcutaneous RxNorm: 1471816 Inject 30U SubQ twice daily 07/07/19 24 024 Inactive Please dispense one month supply. Basaglar KwikPen U-100 Insulin 100 unit/mL (3 mL) subcutaneous RxNorm: 9549270 Inject 30U SubQ twice daily 07/07/19 24 024 Inactive Please dispense one month supply. pregabalin 150 mg capsule RxNorm: 445339 Take 1 Capsule(s) Oral QHS every night at bedtime 07/05/19 24 024 Inactive pregabalin 150 mg capsule RxNorm: 239765 Take 1 Capsule(s) Oral QHS every night at bedtime 07/05/19 24 024 Inactive polyethylene glycol 3350 17 gram/dose oral powder RxNorm: 164181 Take 1 Packet Oral QD as needed (1 packet = 17g) mix with 4-8oz of liquid 06/15/19 024 Inactive bisacodyl 10 mg rectal suppository RxNorm: 345397 Insert one suppository per rectum once daily as needed for constipation 06/15/19 024 Inactive bisacodyl 10 mg rectal suppository RxNorm: 984197 Insert one suppository per rectum once daily as needed for constipation 06/15/19 024 Inactive pregabalin 100 mg capsule RxNorm: 471397 Take 1 Capsule(s) Oral QAM every morning 04/27/20 024 Inactive Levemir FlexPen 100 unit/mL (3 mL) solution subcutaneous insulin pen RxNorm: 297659 Inject 30 Unit(s) Subcutaneous BID 04/27/20 024 Inactive rosuvastatin 40 mg tablet RxNorm: 409558 Take 1 Tablet(s) Oral QPM every evening 04/16/20 024 Inactive D/C rosuvastatin 20mg venlafaxine ER 75 mg capsule,extended release 24 hr RxNorm: 232903 Take 3 Capsule(s) Oral QD 04/14/20 023 Inactive pregabalin 100 mg capsule RxNorm: 957581 Take 1 Capsule(s) Oral QAM every morning [...] strip clotrimazole 1 % topical cream RxNorm: 069829 Take apply topically to abdominal folds twice daily for 14 days 03/12/20 024 Inactive Ozempic 1 mg/dose (4 mg/3 mL) subcutaneous pen injector RxNorm: 6806425 Inject 1 Milligram(s) Subcutaneous QW once a week 03/11/20 023 Inactive rosuvastatin 20 mg tablet RxNorm: 382143 Take 1 Tablet(s) Oral QD 02/26/20 23 023 Inactive d/c pravastatin 80mg Ozempic 1 mg/dose (4 mg/3 mL) subcutaneous pen injector RxNorm: 2323166 Inject 1 Milligram(s) Subcutaneous QW once a week 02/20/20 23 023 Inactive pregabalin 150 mg capsule RxNorm: 391743 Take 1 Capsule(s) Oral HS at bed time 02/19/20 023 Inactive pregabalin 100 mg capsule RxNorm: 032046 Take 1 Capsule(s) Oral QAM every morning 02/18/20 023 Inactive venlafaxine ER 75 mg capsule,extended release 24 hr RxNorm: 589411 Take 3 Capsule(s) Oral QD 02/04/20 23 023 Inactive FreeStyle Chema 2 Sensor kit RxNorm: use as directed 02/04/20 23 023 Inactive FreeStyle Chema 2 Sensor kit RxNorm: use as directed 02/04/20 23 024 Inactive fluconazole 150 mg tablet RxNorm: 683902 Take 1 Tablet(s) Oral on day 3 and on day 6 02/03/20 23 024 Inactive chlorthalidone 25 mg tablet RxNorm: 894137 Take 1 Tablet(s) Oral QAM every morning 02/03/20 23 024 Inactive venlafaxine ER 150 mg capsule,extended release 24 hr RxNorm: 945643 Take 1 Capsule(s) Oral QD 02/03/20 23 023 Inactive acetaminophen 500 mg tablet RxNorm: 243345 1 TABLET ORALLY 3 TIMES DAILY (MAX APAP:4GM/24HR) 12/15/19 23 023 Inactive clotrimazole 1 % topical cream RxNorm: 301545 apply 1g topically to top of feet and in between toes BID 12/09/19 23 025 Inactive potassium chloride ER 20 mEq tablet,extended release RxNorm: 987894 Take 1 Tablet(s) Oral BID 12/09/19 024 Inactive d/c 20mEq once daily (sent from hospital) nystatin 100,000 unit/gram topical powder RxNorm: 782482 APPLY TO AFFECTED AREAS TOPICALLY 2 TIMES DAILY 11/21/19 23 023 Inactive Nystop 100,000 unit/gram topical powder RxNorm: 258270 Apply to abd folds, under breasts and L side of groin Topical BID x 14 days, then BID PRN 11/20/19 023 Inactive dx: yeast dermatitis [place] Ultra Strength 4 %-30 %-10 % topical cream RxNorm: 766032 Apply 1 Gram(s) Topical QID PRN to feet and legs for neuropathic pain 11/11/19 024 Inactive clotrimazole 1 % topical cream RxNorm: 666328 Apply 1/2 Gram(s) Topical BID Apply to affected areas of groin, periarea, and abdominal topically 2 times daily 11/10/19 023 Inactive hydrocortisone 2.5 % topical cream RxNorm: 134329 Apply 1/2 Gram(s) Topical BID as needed 11/10/19 024 Inactive Levemir FlexPen 100 unit/mL (3 mL) solution subcutaneous insulin pen RxNorm: 782464 Inject 30 Unit(s) Subcutaneous BID 10/07/19 023 Inactive Humulin R U-500 (Concentrated) Insulin 500 unit/mL subcutaneous soln RxNorm: 935790 Inject 100 Unit(s) Subcutaneous TID 10/07/19 024 Inactive Ozempic 0.25 mg or 0.5 mg (2 mg/3 mL) subcutaneous pen injector RxNorm: 7511569 Inject 1/2 Milligram(s) Subcutaneous QW once a week 10/07/19 024 Inactive aripiprazole 15 mg tablet RxNorm: 268744 1/2 TAB (7.5MG) ORALLY DAILY (DX:MAJOR DEPRESSIVE DISORDER) 09/23/19 023 Inactive Accu-Chek Guide test strips RxNorm: Use 1 Test Strip QID 09/15/19 23 023 Inactive ok to substitute with any covered alternative test strip Lancets,Thin 28 gauge RxNorm: Use 1 as directed QID 09/15/19 23 023 Inactive torsemide 20 mg tablet RxNorm: 641599 Take 1 Tablet(s) Oral BID 09/09/19 23 024 Inactive d/c once daily dosing carvedilol 25 mg tablet RxNorm: 069197 Take 1 Tablet(s) Oral QD 08/25/19 23 024 Inactive pregabalin 150 mg capsule RxNorm: 865169 1 Capsule(s) Oral HS at bed time 08/18/19 23 023 Inactive pregabalin 100 mg capsule RxNorm: 317480 1 Capsule(s) Oral QAM every morning 08/18/19 23 023 Inactive carvedilol 25 mg tablet RxNorm: 065041 1 Tablet(s) Oral QD 07/28/19 23 023 Inactive lisinopril 20 mg tablet RxNorm: 902722 Give 1 Tablet(s) Oral QD 07/28/19 23 023 Inactive Lyrica 150 mg capsule RxNorm: 864027 Take 1 Capsule(s) Oral QHS every night at bedtime 07/19/19 23 023 Inactive d/c 100mg dose Diflucan 150 mg tablet RxNorm: 189485 Take 1 Tablet(s) Oral QD repeat on day 3 and 6 07/19/19 23 023 Inactive pregabalin 100 mg capsule RxNorm: 895585 Take 1 Capsule(s) Oral QAM every morning 07/19/19 23 023 Inactive gatifloxacin 0.5 % eye drops RxNorm: 750503 Instill 1 Drop(s) as directed TID Instill 1 drop in to affected eye(s) starting 1 day prior to surgery and continue until gone (do not exceed 4 weeks). 07/13/19 23 023 Inactive carvedilol 25 mg tablet RxNorm: 359151 2 Tablet(s) Oral BID 07/13/19 23 023 Inactive Humulin R Regular U-100 Insulin 100 unit/mL injection solution RxNorm: 250461 85 Unit(s) Injection TID 07/13/19 23 023 Inactive ketorolac 0.5 % eye drops RxNorm: 317297 Instill 1 Drop(s) as directed QID Instill 1 drop into affected eye(s) 4 times daily starting 1 day prior to surgery and continue until gone (do not exceed 4 weeks). 07/13/19 23 023 Inactive Diflucan 150 mg tablet RxNorm: 136145 Take 1 Tablet(s) Oral QD repeat on day 3 and 6 06/30/19 23 023 Inactive Accu-Chek Guide test strips RxNorm: Use 1 Test Strip QID Use 1 test strip to monitor blood glucose 4 times daily and as needed. Dx:E11.42. 06/23/19 023 Inactive ok to substitute with any covered alternative test strip dextromethorphan-gu aifenesin 10 mg-100 mg/5 mL oral liquid RxNorm: 534821 Take 10 Milliliter(s) Oral every 4 hours as needed for cough 06/19/19 023 Inactive dextromethorphan-gu aifenesin 10 mg-100 mg/5 mL oral liquid RxNorm: 246290 Take 10 Milliliter(s) Oral every 4 hours as needed for cough 06/19/19 023 Inactive Lyrica 150 mg capsule RxNorm: 966117 Take 1 Capsule(s) Oral QHS every night at bedtime 06/18/19 023 Inactive d/c 100mg dose aripiprazole 15 mg tablet RxNorm: 441166 1/2 TAB (7.5MG) ORALLY DAILY (DX:MAJOR DEPRESSIVE DISORDER) 06/05/19 23 023 Inactive pregabalin 100 mg capsule RxNorm: 292042 1 Capsule(s) Oral QAM every morning 06/02/19 23 023 Inactive Banophen 50 mg capsule RxNorm: 4790050 Take 1 Capsule(s) Oral Q6H every 6 hours as needed 05/19/19 23 No Stop Date Active Novolog Flexpen U-100 Insulin aspart 100 unit/mL (3 mL) subcutaneous RxNorm: 3116819 Inject 10 Unit(s) Subcutaneous QHS every night at bedtime with nighttime snack 04/08/20 022 Inactive Novolog Flexpen U-100 Insulin aspart 100 unit/mL (3 mL) subcutaneous RxNorm: 6240702 Inject 42 Unit(s) Subcutaneous TID in addition to sliding scale 04/08/20 022 Inactive d/c 36u albuterol sulfate HFA 90 mcg/actuation aerosol inhaler RxNorm: 3392886 Take 2 Puff(s) Inhalation Q4H every four hours as needed as needed for SOB, cough, or wheezing 04/07/20 030 Active Banophen 50 mg capsule RxNorm: 2473407 Take 1 Capsule(s) Oral Q6H every 6 hours as needed 04/06/20 023 Inactive diphenhydramine 50 mg tablet RxNorm: 7152158 Take 1 Tablet(s) Oral Q6H every 6 hours as needed 04/06/20 022 Inactive diphenhydramine 50 mg tablet RxNorm: 7362892 1 Tablet(s) Oral Q6H every 6 hours as needed 04/06/20 022 Inactive Abilify 15 mg tablet RxNorm: 527518 1/2 Tablet(s) Oral QD 03/10/20 023 Inactive Shingrix (PF) 50 mcg/0.5 mL intramuscular suspension, kit RxNorm: 6218269 Administer 1/2 Milliliter(s) Intramuscular QD one time shingrix step 2 ( step 1 given 11/04/21) WITH needle - Nursing please administer upon arrival and once administered post a bridge message with date of administration, 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, expiration date, and lot# so we can update [facility] 02/18/20 22 022 Inactive dispense with needle Shingrix (PF) 50 mcg/0.5 mL intramuscular suspension, kit RxNorm: 6982541 Administer 1/2 Milliliter(s) Intramuscular QD one time shingrix step 2 ( step 1 given 11/04/21) WITH needle - Nursing please administer upon arrival and once administered post a bridge message with date of administration, 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, expiration date, and lot# so we can update [facility] 02/18/20 22 022 Inactive dispense with needle polyethylene glycol 3350 17 gram/dose oral powder RxNorm: 434737 Take 17=1 capful Gram(s) Oral QD mix with 4-8oz of liquid 01/08/20 22 025 Inactive take this in addition to BID prn order Lyrica 100 mg capsule RxNorm: 530124 Take 1 Capsule(s) Oral QAM every morning 01/08/20 22 022 Inactive d/c 50mg dose acetaminophen 500 mg tablet RxNorm: 792127 Take 1 Tablet(s) Oral TID 01/08/20 22 022 Inactive d/c PRN order Lyrica 150 mg capsule RxNorm: 506214 Take 1 Capsule(s) Oral QHS every night at bedtime 01/08/20 22 023 Inactive d/c 100mg dose Abilify 5 mg tablet RxNorm: 655347 Take 1 Tablet(s) Oral QD take 1 tab po QD #30 refill 5 dx: MDD 12/12/19 22 022 Inactive Abilify 5 mg tablet RxNorm: 714687 Take 1 Tablet(s) Oral QD take 1 tab po QD #30 refill 5 dx: MDD 12/12/19 22 022 Inactive Novolog Flexpen U-100 Insulin aspart 100 unit/mL (3 mL) subcutaneous RxNorm: 4047206 Inject 42 Unit(s) Subcutaneous TID in addition to sliding scale 12/10/19 22 022 Inactive d/c 36u chlorthalidone 25 mg tablet RxNorm: 221900 Take 1 Tablet(s) Oral QAM every morning 12/10/19 22 023 Inactive pregabalin 50 mg capsule RxNorm: 591182 Take 1 Capsule(s) Oral QAM every morning 11/12/19 22 022 Inactive tetanus-diphtheria toxoids-Td 2 Lf unit-2 Lf unit/0.5 mL IM suspension RxNorm: 139 Take 0.5 Miscellaneous Intramuscular 11/12/19 22 022 Inactive need tdap - nursing to administer upon arrival pregabalin 50 mg capsule RxNorm: 805397 Take 1 Capsule(s) Oral QAM every morning 10/16/19 22 10/04/2 022 Inactive pregabalin 50 mg capsule RxNorm: 189372 Take 1 Capsule(s) Oral QAM every morning 10/16/19 22 Inactive pregabalin 50 mg capsule RxNorm: 070267 1 Capsule(s) Oral QAM every morning 10/15/19 22 Inactive Shingrix (PF) 50 mcg/0.5 mL intramuscular suspension, kit RxNorm: 3726190 Administer 1/2 Milliliter(s) Intramuscular one time Nursing please administer upon arrival and once administered post a bridge message with date of administration, 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, expiration date, and lot# so we can update [facility]. 10/09/19 22 Inactive shingrix step 1 Shingrix (PF) 50 mcg/0.5 mL intramuscular suspension, kit RxNorm: 0628381 Administer 1/2 Milliliter(s) Intramuscular one time Nursing please administer upon arrival and once administered post a bridge message with date of administration, 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, expiration date, and lot# so we [...] aspart 100 unit/mL (3 mL) subcutaneous RxNorm: 0082411 Inject 10 Unit(s) Subcutaneous QHS every night at bedtime with nighttime snack 10/08/19 22 Inactive Shingrix (PF) 50 mcg/0.5 mL intramuscular suspension, kit RxNorm: 2372080 ADMINISTER 2-DOSE SERIES PER CDC GUIDELINES 10/08/19 22 022 Active Shingrix (PF) 50 mcg/0.5 mL intramuscular suspension, kit RxNorm: 4237140 ADMINISTER 2-DOSE SERIES PER CDC GUIDELINES 10/08/19 22 022 Inactive Novolog Flexpen U-100 Insulin aspart 100 unit/mL (3 mL) subcutaneous RxNorm: 7710471 Inject 36 Unit(s) Subcutaneous TID in addition to sliding scale 10/08/19 22 Inactive cholecalciferol (vitamin D3) 1,250 mcg (50,000 unit) capsule RxNorm: 336229 Take 1 Capsule(s) Oral QW once a week 10/08/19 Inactive Novofine Autocover 30 gauge x 1/3 needle RxNorm: Use 1 Miscellaneous UD as directed Use 1 needle as directed to administer insulin 5 times a day Dx:E11.42. 10/03/19 Inactive ok to substitute with any covered alternative pen needle benzoyl peroxide 10 % topical cleanser RxNorm: 796342 Apply 1 Application Topical QD apply to face, wash rinse and dry once daily (may change to QOD if drying) 08/19/19 022 Inactive (%covered by insurance) #60ml refill 11 dx: acne benzoyl peroxide 10 % topical cleanser RxNorm: 519373 Apply 1 Application Topical QD apply to face, wash rinse and dry once daily (may change to QOD if drying) 08/19/19 022 Inactive (%covered by insurance) #60ml refill 11 dx: acne benzoyl peroxide 10 % topical cleanser RxNorm: 639862 Apply 1 Application Topical QD apply to face, wash rinse and dry once daily (may change to QOD if drying) 08/19/19 22 022 Inactive (%covered by insurance) #60ml refill 11 dx: acne Lyrica 50 mg capsule RxNorm: 312820 Take 1 Capsule(s) Oral QAM every morning Take 1 capsule by mouth once daily 08/19/19 22 022 Inactive benzoyl peroxide 10 % topical cleanser RxNorm: 090055 Apply 1 Application Topical QD apply to face, wash rinse and dry once daily (may change to QOD if drying) 08/19/19 22 022 Inactive (%covered by insurance) #60ml refill 11 dx: acne Lyrica 100 mg capsule RxNorm: 924410 Take 1 Capsule(s) Oral QHS every night at bedtime Take 1 capsule by mouth once daily at bedtime 08/19/19 22 022 Inactive Lyrica 100 mg capsule RxNorm: 604979 Take 1 Capsule(s) Oral QHS every night at bedtime Take 1 capsule by mouth once daily at bedtime 08/16/19 22 022 Inactive Lyrica 50 mg capsule RxNorm: 687733 Take 1 Capsule(s) Oral QAM every morning Take 1 capsule by mouth once daily 08/16/19 22 022 Inactive Levemir FlexTouch U-100 Insulin 100 unit/mL (3 mL) subcutaneous pen RxNorm: 636972 Inject 86 Unit(s) Subcutaneous BID 08/05/19 22 022 Inactive d/c 83units BID Lyrica 100 mg capsule RxNorm: 322600 Take 1 Capsule(s) Oral QHS every night at bedtime Take 1 capsule by mouth once daily at bedtime 07/14/19 22 022 Inactive Lyrica 50 mg capsule RxNorm: 586753 Take 1 Capsule(s) Oral QAM every morning Take 1 capsule by mouth once daily 07/14/19 22 022 Inactive Levemir FlexTouch U-100 Insulin 100 unit/mL (3 mL) subcutaneous pen RxNorm: 184211 Inject 83 Unit(s) Subcutaneous BID 07/08/19 22 [...] insulin 5 times a day Dx:E11.. 06/05/19 22 022 Inactive ok to [...] test strip hydralazine 50 mg tablet RxNorm: 094888 Take 1 Tablet(s) Oral QID 05/05/20 21 022 Inactive venlafaxine ER 225 mg tablet,extended release 24 hr RxNorm: 478118 Take 1 Tablet(s) Oral QD 05/05/20 21 021 Inactive venlafaxine ER 225 mg tablet,extended release 24 hr RxNorm: 179002 Take 1 Tablet(s) Oral QD 05/05/20 21 022 Inactive isosorbide mononitrate ER 30 mg tablet,extended release 24 hr RxNorm: 333432 Take 1 Tablet(s) Oral QD 05/05/20 21 024 Inactive hydralazine 50 mg tablet RxNorm: 560335 Take 1 Tablet(s) Oral QID 05/05/20 21 021 Inactive aspirin 81 mg tablet,delayed release RxNorm: 708852 Take 1 Tablet(s) Oral QD 03/31/20 21 022 Inactive Vitamin D2 1,250 mcg (50,000 unit) capsule RxNorm: 3989455 Take 1 Capsule(s) Oral QW once a week x 12 weeks 03/31/20 21 022 Inactive Vitamin D2 1,250 mcg (50,000 unit) capsule RxNorm: 2163588 Take 1 Capsule(s) Oral QW once a week 03/31/20 021 Inactive Zetia 10 mg tablet RxNorm: 012256 Take 1 Tablet(s) Oral QD 03/31/20 024 Inactive Zetia 10 mg tablet RxNorm: 044792 Take 1 Tablet(s) Oral QD 03/31/20 021 Inactive hydralazine 25 mg tablet RxNorm: 587148 Take 1 Tablet(s) Oral QID 03/31/20 021 Inactive hydralazine 25 mg tablet RxNorm: 801069 Take 1 Tablet(s) Oral QID 03/31/20 021 Inactive hydralazine 10 mg tablet RxNorm: 668250 Take 1 Tablet(s) Oral QID 03/03/20 021 Inactive cephalexin 500 mg tablet RxNorm: 420459 Take 1 Tablet(s) Oral QID 02/27/20 021 Inactive cephalexin 500 mg tablet RxNorm: 580613 Take 1 Tablet(s) Oral QID 02/27/20 021 Inactive lisinopril 40 mg tablet RxNorm: 270233 Take 1 Tablet(s) Oral QD 02/11/20 21 023 Inactive Eliquis 5 mg tablet RxNorm: 7783929 Take 1 Tablet(s) Oral BID 01/05/20 21 025 Inactive Eliquis 5 mg tablet RxNorm: 5091136 Take 2 Tablet(s) Oral QD 01/01/20 21 021 Inactive Lyrica 50 mg capsule RxNorm: 594325 Take 1 Capsule(s) Oral QAM every morning 12/24/19 21 021 Inactive Lyrica 100 mg capsule RxNorm: 562952 Take 1 Capsule(s) Oral QHS every night at bedtime 12/24/19 21 021 Inactive clotrimazole 1 % topical cream RxNorm: 253653 Apply to right foot and toes Topical BID 12/04/19 21 023 Inactive metoprolol succinate ER 200 mg tablet,extended release 24 hr RxNorm: 328457 Take 1 Tablet(s) Oral QD 12/04/19 21 023 Inactive ciprofloxacin 500 mg tablet RxNorm: 131275 Take 1 Tablet(s) Oral QD 11/30/19 21 021 Inactive DX ofloxacin otic drops Accu-Chek Guide test strips RxNorm: USE 1 TO CHECK GLUCOSE 4 TIMES DAILY AND NEEDED 11/15/19 21 023 Inactive Blood Glucose Test strips RxNorm: Use 1 Test Strip QID at PRN 11/05/19 21 023 Inactive E11.42 lisinopril 30 mg tablet RxNorm: 698683 Take 1 Tablet(s) Oral QD 10/30/19 21 021 Inactive lisinopril 20 mg tablet RxNorm: 966009 Take 1 Tablet(s) Oral QD 10/23/19 21 021 Inactive lisinopril 20 mg tablet RxNorm: 915399 Take 1 Tablet(s) Oral QD 10/23/19 21 021 Inactive lisinopril 10 mg tablet RxNorm: 021535 Take 1 Tablet(s) Oral QD 10/02/19 21 021 Inactive icosapent ethyl 1 gram capsule RxNorm: 2839606 Take 2 Capsule(s) (2 gm) Oral BID with meals 09/12/19 024 Inactive Okay to dispense one 2gm tab if you have that available. icosapent ethyl 1 gram capsule RxNorm: 7627978 Take 2 Capsule(s) Oral BID 09/12/19 21 021 Inactive Okay to dispense one 2gm tab if you have that available. amlodipine 10 mg tablet RxNorm: 342057 Take 1 Tablet(s) Oral QD 09/04/19 21 021 Inactive aspirin 81 mg tablet,delayed release RxNorm: 954289 Take 1 Tablet(s) Oral QD 09/04/19 21 021 Inactive Levemir FlexTouch U-100 Insulin 100 unit/mL (3 mL) subcutaneous pen RxNorm: 726465 Inject 150 Unit(s) Subcutaneous BID 09/04/19 21 022 Inactive venlafaxine ER 150 mg tablet,extended release 24 hr RxNorm: 204777 Take 1 Tablet(s) Oral QD 09/04/19 021 Inactive clotrimazole-betame thasone 1 %-0.05 % topical cream RxNorm: 332140 Apply to rash on red area on left abdomen/chest Topical BID 08/10/19 21 Inactive amlodipine 5 mg tablet RxNorm: 938873 Take 1 Tablet(s) Oral QD 07/31/19 021 Inactive cephalexin 500 mg tablet RxNorm: 316836 Take 1 Tablet(s) Oral BID BID - Twice Daily 07/31/19 Inactive Start 08/01/20 pantoprazole 40 mg tablet,delayed release RxNorm: 237961 Take 1 Tablet(s) Oral QAM every morning 07/08/19 025 Inactive senna 8.6 mg tablet RxNorm: 494684 Take 1 Tablet(s) Oral QD 07/08/19 025 Inactive carbamazepine 200 mg tablet RxNorm: 357886 Take 1 Tablet(s) Oral BID 07/08/19 025 Inactive clopidogrel 75 mg tablet RxNorm: 815057 Take 1 Tablet(s) Oral QD 07/08/19 021 Inactive Blood Glucose Test strips RxNorm: Use 1 Test Strip QID at PRN 07/08/19 Inactive E11.42 Novolog Flexpen U-100 Insulin aspart 100 unit/mL (3 mL) subcutaneous RxNorm: 4846867 Administer per sliding scale Milliliter(s) Subcutaneous TID 151-200: 10 u; 201-250: 20 u; 251-300: 30 u; 301-350: 40 u; 351-400: 50 u. 07/08/19 21 022 Inactive lisinopril 5 mg tablet RxNorm: 292745 Take 1 Tablet(s) Oral QD 07/08/19 021 Inactive Novolog Flexpen U-100 Insulin aspart 100 unit/mL (3 mL) subcutaneous RxNorm: 4182688 Inject 85 Unit(s) Subcutaneous TID 02/ 022 Inactive pravastatin 80 mg tablet RxNorm: 429725 Take 1 Tablet(s) Oral QHS every night at bedtime 07/08/19 023 Inactive clotrimazole 1 % topical cream RxNorm: 741414 Apply to bilateral groin areas Topical BID 07/08/19 022 Inactive metoprolol succinate ER 200 mg tablet,extended release 24 hr RxNorm: 981182 Take 1 Tablet(s) Oral QD 07/08/19 21 021 Inactive Vitamin D3 25 mcg (1,000 unit) tablet RxNorm: 438086 Take 1 Tablet(s) Oral QD 07/08/19 021 Inactive isosorbide dinitrate 30 mg tablet RxNorm: 985328 Take 1 Tablet(s) Oral QD 07/08/19 021 Inactive Levemir FlexTouch U-100 Insulin 100 unit/mL (3 mL) subcutaneous pen RxNorm: 197601 Inject 140 Unit(s) Subcutaneous BID 07/08/19 021 Inactive torsemide 20 mg tablet RxNorm: 045879 Take 1 Tablet(s) Oral QD 07/08/19 023 Inactive venlafaxine 75 mg tablet RxNorm: 591729 Take 1 Tablet(s) Oral QD 07/08/19 021 Inactive acetaminophen 500 mg tablet RxNorm: 966046 Take 1 Tablet(s) Oral TID as needed for headache 06/18/19 021 Inactive acetaminophen 500 mg tablet RxNorm: 162136 Take 1 Tablet(s) Oral TID as needed for headache 06/18/19 021 Inactive Lyrica 100 mg capsule RxNorm: 532500 Take 1 Capsule(s) Oral QHS every night at bedtime 06/11/19 021 Inactive Lyrica 50 mg capsule RxNorm: 560313 Take 1 Capsule(s) Oral QAM every morning 06/10/19 21 021 Inactive hydrocortisone 2.5 % topical cream RxNorm: 372795 Apply to bilateral groin creases Topical BID 05/15/20 20 021 Inactive clotrimazole 1 % topical cream RxNorm: 293072 Apply to bilateral groin areas Topical BID 05/15/20 20 021 Inactive Lyrica 50 mg capsule RxNorm: 688176 Take 1 Capsule(s) Oral QAM every morning 05/14/20 20 020 Inactive Lyrica 100 mg capsule RxNorm: 876396 Take 1 Capsule(s) Oral QHS every night [...] Inactive Nystop 100,000 unit/gram topical powder RxNorm: 562286 Apply to abd folds, under breasts and L side of groin Topical BID x 14 days, then BID PRN 04/08/20 20 020 Inactive dx: yeast dermatitis Lyrica 100 mg capsule RxNorm: 536001 Take 1 Capsule(s) Oral QHS every night at bedtime 03/13/20 20 020 Inactive Lyrica 50 mg capsule RxNorm: 810625 Take 1 Capsule(s) Oral QAM every morning 03/13/20 20 020 Inactive ketoconazole 2 % shampoo RxNorm: 979394 Apply Topical two times a week with showers 03/11/20 20 024 Inactive cholecalciferol (vitamin D3) 50 mcg (2,000 unit) tablet RxNorm: 373624 Take 1 Tablet(s) Oral QD 03/11/20 021 Inactive Zetia 10 mg tablet RxNorm: 268304 Take 1 Tablet(s) Oral QD 03/07/20 20 021 Inactive Zetia 10 mg tablet RxNorm: 880265 Take 1 Tablet(s) Oral QD 03/07/20 20 Inactive Lyrica 50 mg capsule RxNorm: 412047 Take 1 Capsule(s) Oral QAM every morning 02/15/20 Inactive Lyrica 100 mg capsule RxNorm: 556152 Take 1 Capsule(s) Oral QHS every night at bedtime 02/15/20 Inactive Lyrica 100 mg capsule RxNorm: 460233 Take 1 Capsule(s) Oral QHS every night at bedtime 02/15/20 Inactive Lyrica 50 mg capsule RxNorm: 411050 Take 1 Capsule(s) Oral QAM every morning 02/15/20 Inactive metoprolol succinate ER 200 mg tablet,extended release 24 hr RxNorm: 199022 Take 1 Tablet(s) Oral QD 08/12/19 025 Inactive loperamide 2 mg capsule RxNorm: 623599 Take 1 Capsule(s) Oral QID as needed 09/06/19 025 Inactive hydralazine 50 mg tablet RxNorm: 962703 Take 1 Tablet(s) Oral QID 08/12/19 025 Inactive Soft Touch Lancets RxNorm: miscellaneous 03/04/20 24 025 Inactive venlafaxine ER 75 mg capsule,extended release 24 hr RxNorm: 237307 Take 3 Capsule(s) Oral QD 06/12/19 023 Inactive polyethylene glycol 3350 17 gram/dose oral powder RxNorm: 411539 Take 17=1 capful Gram(s) Oral BID as needed mix with 4-8oz of liquid 06/12/19 22 024 Inactive icosapent ethyl 1 gram capsule RxNorm: 8489244 Take 2 Capsule(s) (2 gm) Oral BID with meals 10/07/19 23 023 Inactive Okay to dispense one 2gm tab if you have that available. Levemir FlexTouch U-100 Insulin 100 unit/mL (3 mL) subcutaneous pen RxNorm: 523106 Inject 80 Unit(s) Subcutaneous BID 07/14/19 23 023 Inactive Novolog Flexpen U-100 Insulin aspart 100 unit/mL (3 mL) subcutaneous RxNorm: 7465287 Insert 30 Unit(s) Subcutaneous TID with meals [...] Planned Activity Notes Codes Status Date Referral: [facility] [address] [id number] [place]erral[place]ointment [id number]/06/2025Referral: [facility]/Endocrinology WPtel: [address] [id number] [place]erral[place] Records [id number]/24/2025Referral: [facility] WPtel: [address] [id number] [place]erralRecords Qhqssvsr38/08/2023Referral: [facility] WPtel: [address] [facility] [address] [id number] HKScylyapbUxvzsbwco75/12/2022Referral: General CardiologyReferralCompleted 1Referral: General PsychologistReferralClosedReferral: General PsychiatristReferralPatient/Family [...] Sister Jyotsna involved in his care cell# [phone] Guardian: Giulia (tapan met in person 09/01/21), [...] appointment 05.26.2024 with Jessa Webster MD at [facility]. Start Pioglitazone 15 mg QD. Stop Basaglar insulin. Increase Ozempic 2 mg once wkly. Continue Humalin R U-500 100 units with meals TID. FOLLOW UP 2 MONTHS. If BG >400 add 50 units to next scheduled dose of Humalin R U 500 insulin 06/12/2024
--- OUTSIDE RECORDS SUMMARY | 2024-10-19 18:25 | XMS_ITS | CCD ---
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 Unknown No [...] Single 10/07/2021 Living arrangements Unknown [facility] 09/03/[address]: 942729585 No Alcohol Consum ption 09/02/2020 Allergies, Adverse Reactions, Alerts Substance Reaction Codes Entered Date Inactivated Date Status * NO KNOWN FOOD ALLERGIES Trghrul5907/13/2023No Inactive DateActiveLISINOPRILRxNorm: 787370902/12/2020No Inactive DateActiveMetformin MVlXqlrwiv24/28/2020No Inactive DateActive* NO KNOWN ENVIRONMENTAL NMCJUCSMNBuymglp85/27/2024No Inactive DateActive Problems Condition Codes Effective Dates Condition St atus Body mass index [BMI] 60.0-69.9, adult S NOMED CT: [id number] ICD-10: Z68.44 ICD-9: V85.44035ActiveConstipation by delayed colonic transitICD-10: K59.01 ICD-9: 564.01035ActiveMixed incontinenceSNOMED CT: 84253319 ICD-10: N39.46 ICD-9: 788.3303/5ActiveType 2 diabetes mellitus with diabetic polyneuropathy, with long-term current use of insulinICD-10: E11.42 ICD-9: 250.60035ActiveDiabetic neuropathy associated with type 2 diabetes mellitusICD-10: E11.40 ICD-9: 250.6005ActiveHemorrhoidsICD-10: K64.9 ICD-9: 455.6025ActiveLower extremity edemaICD-10: R60.0 ICD-9: 782.302/5ActivePVD (peripheral vascular disease)ICD-10: I73.9 ICD-9: 443.9025ActiveCandidal intertrigoICD-10: B37.2 ICD-9: 112.301/5ActiveHyperlipidemia associated with type 2 diabetes mellitusICD-10: E11.69 ICD-9: 250.80015ActiveHypertensive heart disease without heart failure ICD-10: I11.9 ICD-9: 402.90015ActiveHypokalemiaICD-10: E87.6 ICD-9: 276.801/5ActiveOnychogryposisICD-10: L60.2 ICD-9: 703.8015ActiveStage 2 chronic 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ICD-10: E11.22 ICD-9: 250.4001/5ActiveAdvance care planningICD-10: Z71.89 ICD-9: V65.4912/4ActiveLow back painICD-10: M54.50 ICD-9: 724.210/ctiveParaparesis of both lower limbsICD-10: G82.20 ICD-9: 344.110/ctivePhysical deconditioningICD-10: R53.81 ICD-9: 799.310/ctiveAdvanced care planning - to document end of life [id number] toe of right footICD-10: S98.131A ICD-9: 895.009/ctiveAnnual physical examICD-10: Z00.00 ICD-9: V70.009ctiveHistory of anemia due to CKDICD-10: N18.9 ICD-9: 585.909/ctiveHx of deep venous thrombosisICD-10: Z86.718 ICD-9: V12.5109/ctiveHypercoagulable stateICD-10: D68.59 ICD-9: 289.8109/ctiveLearning disabilityICD-10: F81.9 ICD-9: 315.209/ctiveMajor depression, recurrentICD-10: F33.9 ICD-9: 296.3009ctivePressure ulcer of left calf, unstageableICD-10: L89.890 ICD-9: 707.0909/ctiveReducible umbilical herniaICD-10: K42.9 ICD-9: 553.109/ctiveSeizure disorderICD-10: G40.909 ICD-9: 345.9009/ctiveVitamin D deficiencyICD-10: E55.9 ICD-9: 268.909/ctiveCallus of heelICD-10: L84 ICD-9: 25169/esolvedGout due to renal impairmentICD-10: M10.30 ICD-9: 274.1005esolvedHyperhidrosis of palmsICD-10: L74.512 ICD-9: 705.21010/12/2023esolvedHyperlipidemia, unspecifiedICD-10: E78.5 ICD-9: 272.405/esolvedOther exterminator helper (current) drug therapyICD-10: Z79.899 ICD-9: V58.6905esolvedPain of [...] tagICD-10: L91.8 ICD-9: 701.904/esolvedCoronary artery disease involving lower [place] coronary artery of [place] heart, angina presence unspecifiedICD-10: I25.10 ICD-9: 414.0102/ctiveInappropriate sexual behaviorICD-10: Z72.89 ICD-9: 312.8910/ctivePre-op evaluationICD-10: Z01.818 ICD-9: V72.8403/28/2023ActiveSecondary hypertensionICD-10: I15.9 ICD-9: 405.9903/3ActiveDepressionICD-10: F32.9 ICD-9: 84200/2ResolvedDVT (deep venous thrombosis)ICD-10: I82.409 ICD-9: 453.4009/2ResolvedEncounter for immunizationICD-10: Z23 ICD-9: V03.89092ResolvedLong term (current) use of insulinICD-10: Z79.4 2ResolvedMuscular painICD-10: M79.10 ICD-9: 729.1092ResolvedHypertension associated with diabetesICD-10: E11.59 ICD-9: 250.8008/2ResolvedContact with and (suspected) exposure to covid-19 ICD-10: Z20.822 ICD-9: V01.7908/1ResolvedOther infective acute otitis externa of left ear ICD-10: H60.392 ICD-9: 380.1008/1ResolvedScrotal skin lesionICD-10: N50.9 ICD-9: 608.9081ResolvedAnemia due to stage 3b chronic kidney diseaseICD- 10: N18.32 ICD-9: 285.21051ResolvedChronic kidney disease, stage 3 unspecifiedICD- 10: N18.3004esolvedContact with and (suspected) exposure to other viral communicable diseasesICD-10: Z20.828 ICD-9: V01.7902/4070FllgetmfFrjgaupjEmoiyjw28/28/2020ActiveDiabetes mellitus Type 3Atporks20/28/2020ActiveAnemia in chronic kidney diseaseICD-10: D63.1 02/12/2020ResolvedHyperlipidemia, unspecifiedICD-10: E78.Resolved Medications Medication Codes Instructions Start Date Stop Date Status Fill Instructions pregabalin 100 mg capsule RxNorm: 506633 1 CAPSULE BY MOUTH EVERY MORNING (DX: NEUROPATHY) 08/23/19 Active FACILITY IS REQUESTING REFILL. PRIOR RX HAS BEEN EXHAUSTED. THANK YOU. pregabalin 150 mg capsule RxNorm: 037360 1 CAPSULE BY MOUTH AT BEDTIME (DX: NEUROPATHY) 08/21/19 Active FACILITY IS REQUESTING A REFILL OF THIS MEDICATION, THANK YOU! senna 8.6 mg tablet RxNorm: 438965 Take 1 Tablet(s) Oral QD as needed for constipation on day 2 of no bowel movement 08/09/19 25 Inactive Miralax 17 gram/dose oral powder RxNorm: 808144 Administer 17 Gram(s) Oral QD as needed for constipation on day 3 of no bowel movement 08/09/19 Inactive senna 8.6 mg tablet RxNorm: 448642 Take 1 Tablet(s) Oral QD as needed for constipation on day 2 of no bowel movement 08/09/19 Inactive Miralax 17 gram/dose oral powder RxNorm: 276483 Administer 17 Gram(s) Oral QD as needed for constipation on day 3 of no bowel movement 08/09/19 025 Inactive pregabalin 100 mg capsule RxNorm: 958446 Take 1 Capsule(s) Oral QAM every morning [...] (Concentrated) Insulin 500 unit/mL subcutaneous soln RxNorm: 606670 Inject 100 Unit(s) Subcutaneous AC before meals Three times daily before meals. 07/24/19 25 025 Inactive ammonium lactate 12 % topical cream RxNorm: 958979 Apply 1 Application Topical BID 07/20/19 No Stop Date Active ezetimibe 10 mg tablet RxNorm: 908898 Take 1 Tablet(s) Oral QD 07/18/19 No Stop Date Active senna 8.6 mg tablet RxNorm: 039703 Take 1 Tablet(s) Oral QD 07/18/19 25 025 Inactive metoprolol succinate ER 200 mg tablet,extended release 24 hr RxNorm: 560350 Take 1 Tablet(s) Oral QD 06/19/19 25 No Stop Date Active pantoprazole 40 mg tablet,delayed release RxNorm: 884745 Take 1 Tablet(s) Oral QAM every morning 06/19/19 25 No Stop Date Active hydralazine 50 mg tablet RxNorm: 205992 Take 1 Tablet(s) Oral QID 06/19/19 25 No Stop Date Active carbamazepine 200 mg tablet RxNorm: 143613 Take 1 Tablet(s) Oral BID 06/19/19 25 No Stop Date Active amlodipine 10 mg tablet RxNorm: 518883 Take 1 Tablet(s) Oral QD 06/19/19 25 No Stop Date Active Eliquis 5 mg tablet RxNorm: 2953410 Take 1 Tablet(s) Oral BID 06/19/19 25 No Stop Date Active pen needle, diabetic 30 gauge x 3/16 RxNorm: Use 1 6 times per day w/insulin 06/14/19 25 026 Active pen needle, diabetic 30 gauge x 3/16 RxNorm: Use 1 needle 6 times per day w/insulin 06/14/19 25 025 Inactive nystatin 100,000 unit/gram topical powder RxNorm: 936224 Apply 1 Application Topical BID as needed abdominal/breast /groin folds 05/24/19 25 026 Active pregabalin 100 mg capsule RxNorm: 636895 Take 1 Capsule(s) Oral QAM every morning 05/22/19 25 025 Inactive nystatin 100,000 unit/gram topical powder RxNorm: 557335 Apply 1 Application Topical BID as needed abdominal/breast /groin folds 04/11/20 24 024 Inactive chlorthalidone 25 mg tablet RxNorm: 502949 Take 1 Tablet(s) Oral QAM every morning 04/06/20 24 No Stop Date Active pregabalin 150 mg capsule RxNorm: 141087 Take 1 Capsule(s) Oral QHS every night at bedtime 03/31/20 24 11/15/2 024 Inactive Vascepa 1 gram capsule RxNorm: 7418145 Take 2 Capsule(s) Oral BID 03/30/20 Active rosuvastatin 40 mg tablet RxNorm: 976700 1 TAB ORALLY EVERY EVENING (DX:CORONARY ARTERY DISEASE) 03/28/20 No Stop Date Active venlafaxine ER 75 mg capsule,extended release 24 hr RxNorm: 779584 3 CAPS (225MG) ORALLY DAILY (DX: MOOD DISORDER) 03/28/20 No Stop Date Active pregabalin 100 mg capsule RxNorm: 183337 Take 1 Capsule(s) Oral QAM every morning 03/20/20 Inactive cholecalciferol (vitamin D3) 1,250 mcg (50,000 unit) capsule RxNorm: 310555 Take 1 Capsule(s) Oral QW once a [...] Insulin 100 unit/mL (3 mL) subcutaneous RxNorm: 8233109 Inject 40 Unit(s) Subcutaneous BID 03/07/20 24 025 Inactive Please dispense one month supply. Humulin R U-500 (Concentrated) Insulin 500 unit/mL subcutaneous soln RxNorm: 356393 Inject 100 Unit(s) Subcutaneous AC before meals [...] PRN) to be use with new Accu Jackson meter 03/04/20 Inactive ok to substitute with any covered alternative test strip FreeStyle Chema 2 Sensor kit RxNorm: Use UD as directed 03/02/20 Inactive Pen Needle 30 gauge x 5/16 RxNorm: Pen(s) Use 1 needle as directed TID 03/02/20 Inactive nystatin 100,000 unit/gram topical powder RxNorm: 737525 Apply 1 Application Topical BID as needed [...] (Concentrated) Insulin 500 unit/mL subcutaneous soln RxNorm: 721598 Inject 100 Unit(s) Subcutaneous TID 02/17/20 24 024 Inactive Humulin R U-500 (Concentrated) Insulin 500 unit/mL subcutaneous soln RxNorm: 965490 Inject 100 Unit(s) Subcutaneous TID 02/10/20 24 024 Inactive Basaglar KwikPen U-100 Insulin 100 unit/mL (3 mL) subcutaneous RxNorm: 8503224 Inject 30 Unit(s) Subcutaneous BID 02/10/20 24 024 Inactive Please dispense one month supply. pregabalin 100 mg capsule RxNorm: 710789 Take 1 Capsule(s) Oral QAM every morning 02/07/20 24 024 Inactive isosorbide mononitrate ER 60 mg tablet,extended release 24 hr RxNorm: 105587 Take 1 Tablet(s) Oral QD 02/01/20 24 025 Active aripiprazole 15 mg tablet RxNorm: 202677 Take 1/2 Tablet(s) Oral QD 02/01/20 24 025 Active torsemide 20 mg tablet RxNorm: 483023 1 TAB ORALLY DAILY (DX: EDEMA) 01/27/20 No Stop Date Active potassium chloride ER 20 mEq tablet,extended release(part/cryst) RxNorm: 7861895 2 TABS (40MEQ) ORALLY TWICE DAILY (DX: HYPOKALEMIA) 01/27/20 24 025 Inactive cephalexin 500 mg capsule RxNorm: 805081 Take 1 Capsule(s) Oral QID 12/17/19 24 024 Inactive cephalexin 500 mg capsule RxNorm: 725374 Take 1 Capsule(s) Oral QID 12/17/19 24 024 Inactive acetaminophen 500 mg tablet RxNorm: 610544 (MAX APAP:4GM/24HR) Take 1 Tablet(s) Oral TID as needed for pain 12/10/19 24 024 Inactive torsemide 20 mg tablet RxNorm: 034958 Take 1 Tablet(s) Oral QD 10/26/19 24 024 Inactive potassium chloride ER 20 mEq tablet,extended release RxNorm: 19800522 Take 2 Tablet(s) Oral BID 10/26/19 24 024 Inactive torsemide 20 mg tablet RxNorm: 149763 Take 1 Tablet(s) Oral QD 10/26/19 24 025 Inactive potassium chloride ER 20 mEq tablet,extended release RxNorm: 19800522 Take 2 Tablet(s) Oral BID 10/26/19 24 025 Inactive Artificial Tears (PF) 0.1 %-0.3 % drops in a dropperette RxNorm: 429960 Apply 1-2 Drop(s) Both eyes BID as needed 09/28/19 24 025 Inactive erythromycin 5 mg/gram (0.5 %) eye ointment RxNorm: 678288 Apply 1 Application Both eyes QHS every night at bedtime Instill ~1 cm ribbon into affected eye 09/28/19 24 024 Inactive Artificial Tears (PF) 0.1 %-0.3 % drops in a dropperette RxNorm: 643233 Apply 1-2 Drop(s) Both eyes BID as needed 09/28/19 24 024 Inactive erythromycin 5 mg/gram (0.5 %) eye ointment RxNorm: 277519 Apply 1 Application Both eyes QHS every night at bedtime Instill ~1 cm ribbon into affected eye 09/28/19 24 Inactive acetaminophen 500 mg tablet RxNorm: 245857 (MAX APAP:4GM/24HR) Take 1 Tablet(s) Oral TID as needed for pain 09/24/19 24 024 Inactive carvedilol 25 mg tablet RxNorm: 610049 Take 1 Tablet(s) Oral QD 09/08/19 24 No Stop Date Active pregabalin 100 mg capsule RxNorm: 122979 Take 1 Capsule(s) Oral QAM every morning 09/07/19 24 024 Inactive bisacodyl 10 mg rectal suppository RxNorm: 401428 Insert 1 Suppository Rectal QD as needed 07/13/19 24 No Stop Date Active ketoconazole 2 % shampoo RxNorm: 779063 Apply 1 Application Topical UD as directed 07/13/19 24 No Stop Date Active Ozempic 1 mg/dose (4 mg/3 mL) subcutaneous pen injector RxNorm: 3430673 Inject 1 Milligram(s) Subcutaneous QW once a week 07/13/19 24 No Stop Date Active Guaifenesin AC 10 mg-100 mg/5 mL oral liquid RxNorm: 585683 Take 10 Milliliter(s) Oral Q4H every four hours as needed 07/13/19 24 No Stop Date Active hydrocortisone 2.5 % topical cream RxNorm: 483297 Apply 1 Application Topical BID as needed 07/13/19 24 No Stop Date Active rosuvastatin 20 mg sprinkle capsule RxNorm: 0260247 Take 1 Capsule(s) Oral QD 07/13/19 24 025 Inactive rosuvastatin 40 mg tablet RxNorm: 278252 Take 1 Tablet(s) Oral QPM every evening 07/13/19 024 Inactive ezetimibe 10 mg tablet RxNorm: 760584 Take 1 Tablet(s) Oral QD 07/13/19 24 025 Inactive polyethylene glycol 3350 17 gram/dose oral powder RxNorm: 242595 Take 17 Gram(s) Oral BID as needed mix in 4-8ox water 07/13/19 24 025 Inactive aripiprazole 15 mg tablet RxNorm: 630924 Take 1/2 Tablet(s) Oral QD 07/13/19 24 024 Inactive isosorbide mononitrate ER 60 mg tablet,extended release 24 hr RxNorm: 610829 Take 1 Tablet(s) Oral QD 07/13/19 24 024 Inactive ammonium lactate 12 % topical cream RxNorm: 960210 Apply 1 Application Topical BID 07/13/19 24 025 Inactive Vascepa 1 gram capsule RxNorm: 9502353 Take 2 Capsule(s) Oral BID 07/13/19 24 024 Inactive venlafaxine ER 75 mg capsule,extended release 24 hr RxNorm: 616907 Take 3 Capsule(s) Oral QD 07/13/19 24 024 Inactive Basaglar KwikPen U-100 Insulin 100 unit/mL (3 mL) subcutaneous RxNorm: 6194583 Inject 30U SubQ twice daily 07/07/19 24 024 Inactive Please dispense one month supply. Basaglar KwikPen U-100 Insulin 100 unit/mL (3 mL) subcutaneous RxNorm: 3168343 Inject 30U SubQ twice daily 07/07/19 24 024 Inactive Please dispense one month supply. pregabalin 150 mg capsule RxNorm: 798204 Take 1 Capsule(s) Oral QHS every night at bedtime 07/05/19 024 Inactive pregabalin 150 mg capsule RxNorm: 433869 Take 1 Capsule(s) Oral QHS every night at bedtime 07/05/19 024 Inactive polyethylene glycol 3350 17 gram/dose oral powder RxNorm: 583466 Take 1 Packet Oral QD as needed (1 packet = 17g) mix with 4-8oz of liquid 06/15/19 24 024 Inactive bisacodyl 10 mg rectal suppository RxNorm: 179300 Insert one suppository per rectum once daily as needed for constipation 06/15/19 24 024 Inactive bisacodyl 10 mg rectal suppository RxNorm: 037547 Insert one suppository per rectum once daily as needed for constipation 06/15/19 024 Inactive pregabalin 100 mg capsule RxNorm: 062028 Take 1 Capsule(s) Oral QAM every morning 04/27/20 024 Inactive Levemir FlexPen 100 unit/mL (3 mL) solution subcutaneous insulin pen RxNorm: 169595 Inject 30 Unit(s) Subcutaneous BID 04/27/20 23 024 Inactive rosuvastatin 40 mg tablet RxNorm: 350241 Take 1 Tablet(s) Oral QPM every evening 04/16/20 024 Inactive D/C rosuvastatin 20mg venlafaxine ER 75 mg capsule,extended release 24 hr RxNorm: 746505 Take 3 Capsule(s) Oral QD 04/14/20 23 023 Inactive pregabalin 100 mg capsule RxNorm: 846491 Take 1 Capsule(s) Oral QAM every morning [...] strip clotrimazole 1 % topical cream RxNorm: 381262 Take apply topically to abdominal folds twice daily for 14 days 03/12/20 024 Inactive Ozempic 1 mg/dose (4 mg/3 mL) subcutaneous pen injector RxNorm: 0505323 Inject 1 Milligram(s) Subcutaneous QW once a week 03/11/20 23 023 Inactive rosuvastatin 20 mg tablet RxNorm: 932365 Take 1 Tablet(s) Oral QD 02/26/20 23 023 Inactive d/c pravastatin 80mg Ozempic 1 mg/dose (4 mg/3 mL) subcutaneous pen injector RxNorm: 9721816 Inject 1 Milligram(s) Subcutaneous QW once a week 02/20/20 23 023 Inactive pregabalin 150 mg capsule RxNorm: 651517 Take 1 Capsule(s) Oral HS at bed time 02/19/20 23 023 Inactive pregabalin 100 mg capsule RxNorm: 774738 Take 1 Capsule(s) Oral QAM every morning 02/18/20 23 023 Inactive venlafaxine ER 75 mg capsule,extended release 24 hr RxNorm: 865182 Take 3 Capsule(s) Oral QD 02/04/20 023 Inactive FreeStyle Chema 2 Sensor kit RxNorm: use as directed 02/04/20 23 023 Inactive FreeStyle Chema 2 Sensor kit RxNorm: use as directed 02/04/20 23 024 Inactive fluconazole 150 mg tablet RxNorm: 602190 Take 1 Tablet(s) Oral on day 3 and on day 6 02/03/20 23 024 Inactive venlafaxine ER 150 mg capsule,extended release 24 hr RxNorm: 458334 Take 1 Capsule(s) Oral QD 02/03/20 23 023 Inactive chlorthalidone 25 mg tablet RxNorm: 639330 Take 1 Tablet(s) Oral QAM every morning 02/03/20 23 024 Inactive acetaminophen 500 mg tablet RxNorm: 580443 1 TABLET ORALLY 3 TIMES DAILY (MAX APAP:4GM/24HR) 12/15/19 23 023 Inactive clotrimazole 1 % topical cream RxNorm: 443077 apply 1g topically to top of feet and in between toes BID 12/09/19 23 025 Inactive potassium chloride ER 20 mEq tablet,extended release RxNorm: 479984 Take 1 Tablet(s) Oral BID 12/09/19 024 Inactive d/c 20mEq once daily (sent from hospital) nystatin 100,000 unit/gram topical powder RxNorm: 741894 APPLY TO AFFECTED AREAS TOPICALLY 2 TIMES DAILY 11/21/19 023 Inactive Nystop 100,000 unit/gram topical powder RxNorm: 833452 Apply to abd folds, under breasts and L side of groin Topical BID x 14 days, then BID PRN 11/20/19 023 Inactive dx: yeast dermatitis [place] Ultra Strength 4 %-30 %-10 % topical cream RxNorm: 217496 Apply 1 Gram(s) Topical QID PRN to feet and legs for neuropathic pain 11/11/19 024 Inactive clotrimazole 1 % topical cream RxNorm: 801256 Apply 1/2 Gram(s) Topical BID Apply to affected areas of groin, periarea, and abdominal topically 2 times daily 11/10/19 023 Inactive hydrocortisone 2.5 % topical cream RxNorm: 878067 Apply 1/2 Gram(s) Topical BID as needed 11/10/19 024 Inactive Levemir FlexPen 100 unit/mL (3 mL) solution subcutaneous insulin pen RxNorm: 288378 Inject 30 Unit(s) Subcutaneous BID 10/07/19 023 Inactive Humulin R U-500 (Concentrated) Insulin 500 unit/mL subcutaneous soln RxNorm: 181040 Inject 100 Unit(s) Subcutaneous TID 10/07/19 024 Inactive Ozempic 0.25 mg or 0.5 mg (2 mg/3 mL) subcutaneous pen injector RxNorm: 1985274 Inject 1/2 Milligram(s) Subcutaneous QW once a week 10/07/19 024 Inactive aripiprazole 15 mg tablet RxNorm: 274100 05/18 TAB (7.5MG) ORALLY DAILY (DX:MAJOR DEPRESSIVE DISORDER) 09/23/19 23 023 Inactive Accu-Chek Guide test strips RxNorm: Use 1 Test Strip QID 09/15/19 23 023 Inactive ok to substitute with any covered alternative test strip Lancets,Thin 28 gauge RxNorm: Use 1 as directed QID 09/15/19 23 023 Inactive torsemide 20 mg tablet RxNorm: 873305 Take 1 Tablet(s) Oral BID 09/09/19 23 024 Inactive d/c once daily dosing carvedilol 25 mg tablet RxNorm: 676539 Take 1 Tablet(s) Oral QD 08/25/19 23 024 Inactive pregabalin 150 mg capsule RxNorm: 415137 1 Capsule(s) Oral HS at bed time 08/18/19 23 023 Inactive pregabalin 100 mg capsule RxNorm: 721523 1 Capsule(s) Oral QAM every morning 08/18/19 23 023 Inactive carvedilol 25 mg tablet RxNorm: 917716 1 Tablet(s) Oral QD 07/28/19 23 023 Inactive lisinopril 20 mg tablet RxNorm: 484480 Give 1 Tablet(s) Oral QD 07/28/19 23 023 Inactive Lyrica 150 mg capsule RxNorm: 962755 Take 1 Capsule(s) Oral QHS every night at bedtime 07/19/19 23 023 Inactive d/c 100mg dose Diflucan 150 mg tablet RxNorm: 784311 Take 1 Tablet(s) Oral QD repeat on day 3 and 6 07/19/19 23 023 Inactive pregabalin 100 mg capsule RxNorm: 496157 Take 1 Capsule(s) Oral QAM every morning 07/19/19 23 023 Inactive gatifloxacin 0.5 % eye drops RxNorm: 831329 Instill 1 Drop(s) as directed TID Instill 1 drop in to affected eye(s) starting 1 day prior to surgery and continue until gone (do not exceed 4 weeks). 07/13/19 23 023 Inactive carvedilol 25 mg tablet RxNorm: 401899 2 Tablet(s) Oral BID 07/13/19 23 023 Inactive Humulin R Regular U-100 Insulin 100 unit/mL injection solution RxNorm: 274333 85 Unit(s) Injection TID 07/13/19 23 023 Inactive ketorolac 0.5 % eye drops RxNorm: 666178 Instill 1 Drop(s) as directed QID Instill 1 drop into affected eye(s) 4 times daily starting 1 day prior to surgery and continue until gone (do not exceed 4 weeks). 07/13/19 023 Inactive Diflucan 150 mg tablet RxNorm: 237556 Take 1 Tablet(s) Oral QD repeat on day 3 and 6 06/30/19 023 Inactive Accu-Chek Guide test strips RxNorm: Use 1 Test Strip QID Use 1 test strip to monitor blood glucose 4 times daily and as needed. Dx:E11.42. 06/23/19 23 023 Inactive ok to substitute with any covered alternative test strip dextromethorphan-gu aifenesin 10 mg-100 mg/5 mL oral liquid RxNorm: 137073 Take 10 Milliliter(s) Oral every 4 hours as needed for cough 06/19/19 023 Inactive dextromethorphan-gu aifenesin 10 mg-100 mg/5 mL oral liquid RxNorm: 499949 Take 10 Milliliter(s) Oral every 4 hours as needed for cough 06/19/19 23 023 Inactive Lyrica 150 mg capsule RxNorm: 755715 Take 1 Capsule(s) Oral QHS every night at bedtime 06/18/19 23 023 Inactive d/c 100mg dose aripiprazole 15 mg tablet RxNorm: 225095 1/2 TAB (7.5MG) ORALLY DAILY (DX:MAJOR DEPRESSIVE DISORDER) 06/05/19 23 023 Inactive pregabalin 100 mg capsule RxNorm: 048572 1 Capsule(s) Oral QAM every morning 06/02/19 23 023 Inactive Banophen 50 mg capsule RxNorm: 0390738 Take 1 Capsule(s) Oral Q6H every 6 hours as needed 05/19/19 No Stop Date Active Novolog Flexpen U-100 Insulin aspart 100 unit/mL (3 mL) subcutaneous RxNorm: 1335386 Inject 10 Unit(s) Subcutaneous QHS every night at bedtime with nighttime snack 04/08/20 022 Inactive Novolog Flexpen U-100 Insulin aspart 100 unit/mL (3 mL) subcutaneous RxNorm: 7209559 Inject 42 Unit(s) Subcutaneous TID in addition to sliding scale 04/08/20 Inactive d/c 36u albuterol sulfate HFA 90 mcg/actuation aerosol inhaler RxNorm: 6985301 Take 2 Puff(s) Inhalation Q4H every four hours as needed as needed for SOB, cough, or wheezing 04/07/20 030 Active Banophen 50 mg capsule RxNorm: 9301944 Take 1 Capsule(s) Oral Q6H every 6 hours as needed 04/06/20 023 Inactive diphenhydramine 50 mg tablet RxNorm: 5742582 Take 1 Tablet(s) Oral Q6H every 6 hours as needed 04/06/20 022 Inactive diphenhydramine 50 mg tablet RxNorm: 2652651 1 Tablet(s) Oral Q6H every 6 hours as needed 04/06/20 022 Inactive Abilify 15 mg tablet RxNorm: 112021 1/2 Tablet(s) Oral QD 03/10/20 023 Inactive Shingrix (PF) 50 mcg/0.5 mL intramuscular suspension, kit RxNorm: 9347108 Administer 1/2 Milliliter(s) Intramuscular QD one time shingrix step 2 ( step 1 given 11/04/21) WITH needle - Nursing please administer upon arrival and once administered post a bridge message with date of administration, flatwork assembler, expiration date, and lot# so we can update [facility] 02/18/20 22 022 Inactive dispense with needle Shingrix (PF) 50 mcg/0.5 mL intramuscular suspension, kit RxNorm: 4607156 Administer 1/2 Milliliter(s) Intramuscular QD one time shingrix step 2 ( step 1 given 11/04/21) WITH needle - Nursing please administer upon arrival and once administered post a bridge message with date of administration, flatwork assembler, expiration date, and lot# so we can update [facility] 02/18/20 22 022 Inactive dispense with needle Lyrica 100 mg capsule RxNorm: 321631 Take 1 Capsule(s) Oral QAM every morning 01/08/20 22 022 Inactive d/c 50mg dose acetaminophen 500 mg tablet RxNorm: 351878 Take 1 Tablet(s) Oral TID 01/08/20 22 022 Inactive d/c PRN order Lyrica 150 mg capsule RxNorm: 241847 Take 1 Capsule(s) Oral QHS every night at bedtime 01/08/20 22 023 Inactive d/c 100mg dose polyethylene glycol 3350 17 gram/dose oral powder RxNorm: 011954 Take 17=1 capful Gram(s) Oral QD mix with 4-8oz of liquid 01/08/20 22 025 Inactive take this in addition to BID prn order Abilify 5 mg tablet RxNorm: 577813 Take 1 Tablet(s) Oral QD take 1 tab po QD #30 refill 5 dx: MDD 12/12/19 22 022 Inactive Abilify 5 mg tablet RxNorm: 285354 Take 1 Tablet(s) Oral QD take 1 tab po QD #30 refill 5 dx: MDD 12/12/19 22 022 Inactive Novolog Flexpen U-100 Insulin aspart 100 unit/mL (3 mL) subcutaneous RxNorm: 7602411 Inject 42 Unit(s) Subcutaneous TID in addition to sliding scale 12/10/19 22 022 Inactive d/c 36u chlorthalidone 25 mg tablet RxNorm: 862831 Take 1 Tablet(s) Oral QAM every morning 12/10/19 22 023 Inactive pregabalin 50 mg capsule RxNorm: 141310 Take 1 Capsule(s) Oral QAM every morning 11/12/19 22 022 Inactive tetanus-diphtheria toxoids-Td 2 Lf unit-2 Lf unit/0.5 mL IM suspension RxNorm: 139 Take 0.5 Miscellaneous Intramuscular 11/12/19 22 022 Inactive need tdap - nursing to administer upon arrival pregabalin 50 mg capsule RxNorm: 400786 Take 1 Capsule(s) Oral QAM every morning 10/16/19 22 022 Inactive pregabalin 50 mg capsule RxNorm: 480704 Take 1 Capsule(s) Oral QAM every morning 10/16/19 22 022 Inactive pregabalin 50 mg capsule RxNorm: 662255 1 Capsule(s) Oral QAM every morning 10/15/19 22 022 Inactive Shingrix (PF) 50 mcg/0.5 mL intramuscular suspension, kit RxNorm: 0288904 Administer 1/2 Milliliter(s) Intramuscular one time Nursing please administer upon arrival and once administered post a bridge message with date of administration, flatwork assembler, expiration date, and lot# so we can update [facility]. 10/09/19 22 022 Inactive shingrix step 1 Shingrix (PF) 50 mcg/0.5 mL intramuscular suspension, kit RxNorm: 6309243 Administer 1/2 Milliliter(s) Intramuscular one time Nursing please administer upon arrival and once administered post a bridge message with date of administration, flatwork assembler, expiration date, and lot# so we can [...] aspart 100 unit/mL (3 mL) subcutaneous RxNorm: 7474181 Inject 10 Unit(s) Subcutaneous QHS every night at bedtime with nighttime snack 05/24/20 22 11/23/2 022 Inactive Shingrix (PF) 50 mcg/0.5 mL intramuscular suspension, kit RxNorm: 4128920 ADMINISTER 2-DOSE SERIES PER CDC GUIDELINES 10/08/19 22 Active Shingrix (PF) 50 mcg/0.5 mL intramuscular suspension, kit RxNorm: 5247204 ADMINISTER 2-DOSE SERIES PER CDC GUIDELINES 10/08/19 22 Inactive Novolog Flexpen U-100 Insulin aspart 100 unit/mL (3 mL) subcutaneous RxNorm: 5957645 Inject 36 Unit(s) Subcutaneous TID in addition to sliding scale 10/08/19 Inactive cholecalciferol (vitamin D3) 1,250 mcg (50,000 unit) capsule RxNorm: 247708 Take 1 Capsule(s) Oral QW once a week 10/08/19 Inactive Novofine Autocover 30 gauge x 1/3 needle RxNorm: Use 1 Miscellaneous UD as directed Use 1 needle as directed to administer insulin 5 times a day Dx:E11.42. 10/03/19 Inactive ok to substitute with any covered alternative pen needle benzoyl peroxide 10 % topical cleanser RxNorm: 422587 Apply 1 Application Topical QD apply to face, wash rinse and dry once daily (may change to QOD if drying) 08/19/19 22 022 Inactive (%covered by insurance) #60ml refill 11 dx: acne benzoyl peroxide 10 % topical cleanser RxNorm: 986392 Apply 1 Application Topical QD apply to face, wash rinse and dry once daily (may change to QOD if drying) 08/19/19 22 022 Inactive (%covered by insurance) #60ml refill 11 dx: acne benzoyl peroxide 10 % topical cleanser RxNorm: 524833 Apply 1 Application Topical QD apply to face, wash rinse and dry once daily (may change to QOD if drying) 08/19/19 22 022 Inactive (%covered by insurance) #60ml refill 11 dx: acne Lyrica 50 mg capsule RxNorm: 442748 Take 1 Capsule(s) Oral QAM every morning Take 1 capsule by mouth once daily 08/19/19 22 022 Inactive benzoyl peroxide 10 % topical cleanser RxNorm: 379085 Apply 1 Application Topical QD apply to face, wash rinse and dry once daily (may change to QOD if drying) 08/19/19 22 Inactive (%covered by insurance) #60ml refill 11 dx: acne Lyrica 100 mg capsule RxNorm: 275518 Take 1 Capsule(s) Oral QHS every night at bedtime Take 1 capsule by mouth once daily at bedtime 08/19/19 22 022 Inactive Lyrica 100 mg capsule RxNorm: 255535 Take 1 Capsule(s) Oral QHS every night at bedtime Take 1 capsule by mouth once daily at bedtime 08/16/19 22 Inactive Lyrica 50 mg capsule RxNorm: 608868 Take 1 Capsule(s) Oral QAM every morning Take 1 capsule by mouth once daily 08/16/19 22 Inactive Levemir FlexTouch U-100 Insulin 100 unit/mL (3 mL) subcutaneous pen RxNorm: 765698 Inject 86 Unit(s) Subcutaneous BID 08/05/19 22 022 Inactive d/c 83units BID Lyrica 100 mg capsule RxNorm: 576549 Take 1 Capsule(s) Oral QHS every night at bedtime Take 1 capsule by mouth once daily at bedtime 07/14/19 22 022 Inactive Lyrica 50 mg capsule RxNorm: 404281 Take 1 Capsule(s) Oral QAM every morning Take 1 capsule by mouth once daily 07/14/19 22 022 Inactive Levemir FlexTouch U-100 Insulin 100 unit/mL (3 mL) subcutaneous pen RxNorm: 381129 Inject 83 Unit(s) Subcutaneous BID 07/08/19 22 [...] test strip hydralazine 50 mg tablet RxNorm: 758181 Take 1 Tablet(s) Oral QID 05/05/20 21 022 Inactive venlafaxine ER 225 mg tablet,extended release 24 hr RxNorm: 090997 Take 1 Tablet(s) Oral QD 05/05/20 21 021 Inactive venlafaxine ER 225 mg tablet,extended release 24 hr RxNorm: 777550 Take 1 Tablet(s) Oral QD 05/05/20 21 022 Inactive isosorbide mononitrate ER 30 mg tablet,extended release 24 hr RxNorm: 583768 Take 1 Tablet(s) Oral QD 05/05/20 21 024 Inactive hydralazine 50 mg tablet RxNorm: 854601 Take 1 Tablet(s) Oral QID 05/05/20 21 021 Inactive aspirin 81 mg tablet,delayed release RxNorm: 596354 Take 1 Tablet(s) Oral QD 03/31/20 022 Inactive Vitamin D2 1,250 mcg (50,000 unit) capsule RxNorm: 9722371 Take 1 Capsule(s) Oral QW once a week x 12 weeks 03/31/20 022 Inactive Vitamin D2 1,250 mcg (50,000 unit) capsule RxNorm: 8338956 Take 1 Capsule(s) Oral QW once a week 03/31/20 021 Inactive Zetia 10 mg tablet RxNorm: 073970 Take 1 Tablet(s) Oral QD 03/31/20 024 Inactive Zetia 10 mg tablet RxNorm: 486295 Take 1 Tablet(s) Oral QD 03/31/20 Inactive hydralazine 25 mg tablet RxNorm: 414703 Take 1 Tablet(s) Oral QID 03/31/20 021 Inactive hydralazine 25 mg tablet RxNorm: 936322 Take 1 Tablet(s) Oral QID 03/31/20 021 Inactive hydralazine 10 mg tablet RxNorm: 947027 Take 1 Tablet(s) Oral QID 03/03/20 021 Inactive cephalexin 500 mg tablet RxNorm: 602017 Take 1 Tablet(s) Oral QID 02/27/20 021 Inactive cephalexin 500 mg tablet RxNorm: 409752 Take 1 Tablet(s) Oral QID 02/27/20 021 Inactive lisinopril 40 mg tablet RxNorm: 962437 Take 1 Tablet(s) Oral QD 02/11/20 21 023 Inactive Eliquis 5 mg tablet RxNorm: 3769244 Take 1 Tablet(s) Oral BID 01/05/20 21 025 Inactive Eliquis 5 mg tablet RxNorm: 3834887 Take 2 Tablet(s) Oral QD 01/01/20 21 021 Inactive Lyrica 50 mg capsule RxNorm: 521125 Take 1 Capsule(s) Oral QAM every morning 12/24/19 21 021 Inactive Lyrica 100 mg capsule RxNorm: 507591 Take 1 Capsule(s) Oral QHS every night at bedtime 12/24/19 21 021 Inactive clotrimazole 1 % topical cream RxNorm: 535052 Apply to right foot and toes Topical BID 12/04/19 21 023 Inactive metoprolol succinate ER 200 mg tablet,extended release 24 hr RxNorm: 526308 Take 1 Tablet(s) Oral QD 12/04/19 21 023 Inactive ciprofloxacin 500 mg tablet RxNorm: 268610 Take 1 Tablet(s) Oral QD 11/30/19 21 021 Inactive DX ofloxacin otic drops Accu-Chek Guide test strips RxNorm: USE 1 TO CHECK GLUCOSE 4 TIMES DAILY AND NEEDED 11/15/19 21 023 Inactive Blood Glucose Test strips RxNorm: Use 1 Test Strip QID at PRN 11/05/19 21 023 Inactive E11.42 lisinopril 30 mg tablet RxNorm: 703574 Take 1 Tablet(s) Oral QD 10/30/19 21 021 Inactive lisinopril 20 mg tablet RxNorm: 077401 Take 1 Tablet(s) Oral QD 10/23/19 21 021 Inactive lisinopril 20 mg tablet RxNorm: 203708 Take 1 Tablet(s) Oral QD 10/23/19 21 021 Inactive lisinopril 10 mg tablet RxNorm: 292223 Take 1 Tablet(s) Oral QD 10/02/19 21 021 Inactive icosapent ethyl 1 gram capsule RxNorm: 5527033 Take 2 Capsule(s) (2 gm) Oral BID with meals 09/12/19 21 024 Inactive Okay to dispense one 2gm tab if you have that available. icosapent ethyl 1 gram capsule RxNorm: 3585585 Take 2 Capsule(s) Oral BID 09/12/19 21 021 Inactive Okay to dispense one 2gm tab if you have that available. amlodipine 10 mg tablet RxNorm: 593188 Take 1 Tablet(s) Oral QD 09/04/19 21 021 Inactive aspirin 81 mg tablet,delayed release RxNorm: 219161 Take 1 Tablet(s) Oral QD 09/04/19 21 021 Inactive Levemir FlexTouch U-100 Insulin 100 unit/mL (3 mL) subcutaneous pen RxNorm: 453093 Inject 150 Unit(s) Subcutaneous BID 09/04/19 21 022 Inactive venlafaxine ER 150 mg tablet,extended release 24 hr RxNorm: 621329 Take 1 Tablet(s) Oral QD 09/04/19 21 021 Inactive clotrimazole-betame thasone 1 %-0.05 % topical cream RxNorm: 994038 Apply to rash on red area on left abdomen/chest Topical BID 08/10/19 21 021 Inactive amlodipine 5 mg tablet RxNorm: 000681 Take 1 Tablet(s) Oral QD 07/31/19 021 Inactive cephalexin 500 mg tablet RxNorm: 139426 Take 1 Tablet(s) Oral BID BID - Twice Daily 07/31/19 021 Inactive Start 08/01/20 pantoprazole 40 mg tablet,delayed release RxNorm: 762010 Take 1 Tablet(s) Oral QAM every morning 07/08/19 025 Inactive clopidogrel 75 mg tablet RxNorm: 271697 Take 1 Tablet(s) Oral QD 07/08/19 021 Inactive Blood Glucose Test strips RxNorm: Use 1 Test Strip QID at PRN 07/08/19 21 021 Inactive E11.42 senna 8.6 mg tablet RxNorm: 927728 Take 1 Tablet(s) Oral QD 07/08/19 21 025 Inactive Novolog Flexpen U-100 Insulin aspart 100 unit/mL (3 mL) subcutaneous RxNorm: 9065165 Administer per sliding scale Milliliter(s) Subcutaneous TID 151-200: 10 u; 201-250: 20 u; 251-300: 30 u; 301-350: 40 u; 351-400: 50 u. 07/08/19 21 022 Inactive lisinopril 5 mg tablet RxNorm: 691740 Take 1 Tablet(s) Oral QD 07/08/19 021 Inactive Novolog Flexpen U-100 Insulin aspart 100 unit/mL (3 mL) subcutaneous RxNorm: 2505129 Inject 85 Unit(s) Subcutaneous TID 07/08/19 022 Inactive pravastatin 80 mg tablet RxNorm: 011244 Take 1 Tablet(s) Oral QHS every night at bedtime 07/08/19 023 Inactive clotrimazole 1 % topical cream RxNorm: 267025 Apply to bilateral groin areas Topical BID 07/08/19 022 Inactive metoprolol succinate ER 200 mg tablet,extended release 24 hr RxNorm: 423934 Take 1 Tablet(s) Oral QD 07/08/19 021 Inactive Vitamin D3 25 mcg (1,000 unit) tablet RxNorm: 436682 Take 1 Tablet(s) Oral QD 07/08/19 021 Inactive isosorbide dinitrate 30 mg tablet RxNorm: 049349 Take 1 Tablet(s) Oral QD 07/08/19 021 Inactive carbamazepine 200 mg tablet RxNorm: 736763 Take 1 Tablet(s) Oral BID 07/08/19 025 Inactive Levemir FlexTouch U-100 Insulin 100 unit/mL (3 mL) subcutaneous pen RxNorm: 864035 Inject 140 Unit(s) Subcutaneous BID 07/08/19 021 Inactive torsemide 20 mg tablet RxNorm: 116877 Take 1 Tablet(s) Oral QD 07/08/19 023 Inactive venlafaxine 75 mg tablet RxNorm: 348402 Take 1 Tablet(s) Oral QD 07/08/19 021 Inactive acetaminophen 500 mg tablet RxNorm: 717118 Take 1 Tablet(s) Oral TID as needed for headache 06/18/19 021 Inactive acetaminophen 500 mg tablet RxNorm: 490612 Take 1 Tablet(s) Oral TID as needed for headache 06/18/19 021 Inactive Lyrica 100 mg capsule RxNorm: 306542 Take 1 Capsule(s) Oral QHS every night at bedtime 06/11/19 021 Inactive Lyrica 50 mg capsule RxNorm: 573465 Take 1 Capsule(s) Oral QAM every morning 06/10/19 21 Inactive hydrocortisone 2.5 % topical cream RxNorm: 969021 Apply to bilateral groin creases Topical BID 05/15/20 20 021 Inactive clotrimazole 1 % topical cream RxNorm: 971189 Apply to bilateral groin areas Topical BID 05/15/20 20 021 Inactive Lyrica 50 mg capsule RxNorm: 984603 Take 1 Capsule(s) Oral QAM every morning 05/14/20 20 020 Inactive Lyrica 100 mg capsule RxNorm: 306704 Take 1 Capsule(s) Oral QHS every night [...] Inactive Nystop 100,000 unit/gram topical powder RxNorm: 853281 Apply to abd folds, under breasts and L side of groin Topical BID x 14 days, then BID PRN 04/08/20 20 020 Inactive dx: yeast dermatitis Lyrica 100 mg capsule RxNorm: 516000 Take 1 Capsule(s) Oral QHS every night at bedtime 03/13/20 20 020 Inactive Lyrica 50 mg capsule RxNorm: 147973 Take 1 Capsule(s) Oral QAM every morning 03/13/20 20 10/28/2 020 Inactive ketoconazole 2 % shampoo RxNorm: 291590 Apply Topical two times a week with showers 03/11/20 20 Inactive cholecalciferol (vitamin D3) 50 mcg (2,000 unit) tablet RxNorm: 073579 Take 1 Tablet(s) Oral QD 03/11/20 20 021 Inactive Zetia 10 mg tablet RxNorm: 538283 Take 1 Tablet(s) Oral QD 03/07/20 20 021 Inactive Zetia 10 mg tablet RxNorm: 146212 Take 1 Tablet(s) Oral QD 03/07/20 20 Inactive Lyrica 50 mg capsule RxNorm: 647808 Take 1 Capsule(s) Oral QAM every morning 02/15/20 20 Inactive Lyrica 100 mg capsule RxNorm: 561685 Take 1 Capsule(s) Oral QHS every night at bedtime 02/15/20 Inactive Lyrica 100 mg capsule RxNorm: 625319 Take 1 Capsule(s) Oral QHS every night at bedtime 02/15/20 20 Inactive Lyrica 50 mg capsule RxNorm: 403649 Take 1 Capsule(s) Oral QAM every morning 02/15/20 20 Inactive loperamide 2 mg capsule RxNorm: 828874 Take 1 Capsule(s) Oral QID as needed 09/06/19 025 Inactive venlafaxine ER 75 mg capsule,extended release 24 hr RxNorm: 348825 Take 3 Capsule(s) Oral QD 06/12/19 023 Inactive polyethylene glycol 3350 17 gram/dose oral powder RxNorm: 189184 Take 17=1 capful Gram(s) Oral BID as needed mix with 4-8oz of liquid 06/12/19 22 024 Inactive icosapent ethyl 1 gram capsule RxNorm: 9253332 Take 2 Capsule(s) (2 gm) Oral BID with meals 10/07/19 23 023 Inactive Okay to dispense one 2gm tab if you have that available. Levemir FlexTouch U-100 Insulin 100 unit/mL (3 mL) subcutaneous pen RxNorm: 457088 Inject 80 Unit(s) Subcutaneous BID 07/14/19 23 023 Inactive metoprolol succinate ER 200 mg tablet,extended release 24 hr RxNorm: 060855 Take 1 Tablet(s) Oral QD 08/12/19 23 025 Inactive hydralazine 50 mg tablet RxNorm: 744027 Take 1 Tablet(s) Oral QID 08/12/19 025 Inactive Soft Touch Lancets RxNorm: miscellaneous 03/04/20 24 025 Inactive Novolog Flexpen U-100 Insulin aspart 100 unit/mL (3 mL) subcutaneous RxNorm: 7477703 Insert 30 Unit(s) Subcutaneous TID with meals [...] Planned Activity Notes Codes Status Date Referral: [facility] [address] [id number] [place]ReferralAppointment Dfqqcnhzs40/06/2025Referral: [facility]/Endocrinology WPtel: [address] [facility] [address] [id number] USReferralNo Records Rbdbywhj28/24/2025Referral: [facility] WPtel: [address], [address] [id number] [place]ReferralRecords Ajvljjkm29/08/2023Referral: [facility] WPtel: [address] [id number] MSCapzqyhkSwitxrsgh85/12/2022Referral: General CardiologyReferralCompleted 1Referral: General PsychologistReferralClosedReferral: General PsychiatristReferralPatient/Family [...] Sister Jyotsna involved in his care cell# [phone] Guardian: Don (tapan met in person 09/01/21), [...] 05.26.2024 with Jessa Webster MD at [facility]. Start Pioglitazone 15 mg QD. Stop Basaglar insulin. Increase Ozempic 2 mg once wkly. Continue Humalin R U-500 100 units with meals TID. FOLLOW UP 2 MONTHS. If BG >400 add 50 units to next scheduled dose of Humalin R U 500 insulin 06/12/2024
--- OUTSIDE RECORDS SUMMARY | 2024-10-19 18:26 | XMS_ITS | CCD ---
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 Grounds Keeper Name Role Phone Arpit VIDALKeeganHarrison Primary Care Provider Leona vailable Unavailable Chronic Care Management Unavaila ble Summary Purpose DataExchange Insurance Providers Payer name Policy type / Coverage type Covered alliance party ID Effective Begin Date Effective End Date [place] [id number] Unknown Unknown Medicaid [place] Medicare Part B [id number] Unknown Unknown Family history Sister Brittany Suggs Diagnosis Age At Onset No Family Disease Entered N/A Runs in the family Diagnosis Age At Onset No Known Diseases N/A Sister Blanka Mcduffie Diagnosis Age At Onset No Family Disease Entered N/A Social History Social History Element Codes Description Effec tive Dates Tobacco history SNOMED CT: 628161940 Never smoker 01/16 Sexually Active? Unknown No [...] Detention 09/03/19 [address]: 058674480 No Alcohol Consum ption 09/02/2020 Allergies, Adverse Reactions, Alerts Substance Reaction Codes Entered Date Inactivated Date Status * NO KNOWN FOOD ALLERGIES Mvvmyyh2207/13/2023No Inactive DateActiveLISINOPRILRxNorm: 3002556No Inactive DateActiveMetformin XZbVmjlhrt33/28/2020No Inactive DateActive* NO KNOWN ENVIRONMENTAL ODDDVABPTOisvhro28/27/2024No Inactive DateActive Problems Condition Codes Effective Dates [...] planning - to document end of life oetviskjxvuGnvqngr32/24/2024ctiveAdvance care planningICD-10: Z71.89 ICD-9: V65.4909/ctiveAmputated toe of [...] E55.9 ICD-9: 268.909/ctiveCallus of heelICD-10: L84 ICD-9: 47523/esolvedGout due to renal impairmentICD-10: M10.30 ICD-9: 274.1005/esolvedHyperhidrosis of palmsICD-10: L74.512 ICD-9: 705.2105/esolvedHyperlipidemia, unspecifiedICD-10: E78.5 ICD-9: 272.405/esolvedOther fpc (current) drug [...] tagICD-10: L91.8 ICD-9: 701.904/esolvedCoronary artery disease involving [place] coronary artery of [place] heart, angina presence unspecifiedICD-10: I25.10 ICD-9: 414.0102/4ActiveInappropriate sexual behaviorICD-10: Z72.89 ICD-9: 312.8910/ctivePre-op evaluationICD-10: Z01.818 ICD-9: V72.8403/ctiveSecondary hypertensionICD-10: I15.9 ICD-9: 405.9903/ctiveDepressionICD-10: F32.9 ICD-9: 24452/esolvedDVT (deep venous thrombosis)ICD-10: I82.409 ICD-9: 453.4009/esolvedEncounter for [...] to other viral communicable diseasesICD-10: Z20.828 ICD-9: V01.79028413DvwbpkozLkgpcolnCwylyde73/28/2020ActiveDiabetes mellitus Type 4Xcemjlz98/28/2020ActiveAnemia in chronic kidney diseaseICD-10: D63.1 02/12/2020ResolvedHyperlipidemia, unspecifiedICD-10: E78.Resolved Medications Medication Codes Instructions Start Date Stop Date Status Fill Instructions rosuvastatin 40 mg tablet RxNorm: 186792 1 TAB ORALLY EVERY EVENING (DX:CORONARY ARTERY DISEASE) 03/28/20 24 No Stop Date Active venlafaxine ER 75 mg capsule,extended release 24 hr RxNorm: 983824 3 CAPS (225MG) ORALLY DAILY (DX: MOOD DISORDER) 03/28/20 24 No Stop Date Active pregabalin 100 mg capsule RxNorm: 294843 Take 1 Capsule(s) Oral QAM every morning 03/20/20 24 11/04/2 024 Inactive cholecalciferol (vitamin D3) 1,250 mcg (50,000 unit) capsule RxNorm: 482356 Take 1 Capsule(s) Oral QW once a [...] Insulin 100 unit/mL (3 mL) subcutaneous RxNorm: 5512753 Inject 40 Unit(s) Subcutaneous BID 03/07/20 Inactive Please dispense one month supply. Humulin R U-500 (Concentrated) Insulin 500 unit/mL subcutaneous soln RxNorm: 370685 Inject 100 Unit(s) Subcutaneous AC before meals [...] PRN) to be use with new Accu [place] meter 10/19/20 24 10/22/2 024 Inactive ok to substitute with any covered alternative test strip FreeStyle Chema 2 Sensor kit RxNorm: Use UD as directed 03/02/20 025 Inactive FreeStyle Chema 2 Sensor kit RxNorm: Use UD as directed 03/02/20 024 Inactive Pen Needle 30 gauge x 516 RxNorm: Pen(s) Use 1 needle as directed TID 03/02/20 24 Inactive nystatin 100,000 unit/gram topical powder RxNorm: 187777 Apply 1 Application Topical BID as needed [...] (Concentrated) Insulin 500 unit/mL subcutaneous soln RxNorm: 633068 Inject 100 Unit(s) Subcutaneous TID 02/17/20 24 024 Inactive Humulin R U-500 (Concentrated) Insulin 500 unit/mL subcutaneous soln RxNorm: 181615 Inject 100 Unit(s) Subcutaneous TID 02/10/20 24 024 Inactive Basaglar KwikPen U-100 Insulin 100 unit/mL (3 mL) subcutaneous RxNorm: 3355488 Inject 30 Unit(s) Subcutaneous BID 02/10/20 24 024 Inactive Please dispense one month supply. pregabalin 100 mg capsule RxNorm: 013602 Take 1 Capsule(s) Oral QAM every morning 02/07/20 24 024 Inactive isosorbide mononitrate ER 60 mg tablet,extended release 24 hr RxNorm: 875188 Take 1 Tablet(s) Oral QD 02/01/20 24 025 Active aripiprazole 15 mg tablet RxNorm: 771879 Take 1/2 Tablet(s) Oral QD 02/01/20 24 Active torsemide 20 mg tablet RxNorm: 989683 1 TAB ORALLY DAILY (DX: EDEMA) 01/27/20 No Stop Date Active potassium chloride ER 20 mEq tablet,extended release(part/cryst) RxNorm: 1983548 2 TABS (40MEQ) ORALLY TWICE DAILY (DX: HYPOKALEMIA) 01/27/20 Inactive cephalexin 500 mg capsule RxNorm: 798730 Take 1 Capsule(s) Oral QID 12/17/19 24 024 Inactive cephalexin 500 mg capsule RxNorm: 212548 Take 1 Capsule(s) Oral QID 12/17/19 24 Inactive acetaminophen 500 mg tablet RxNorm: 204226 (MAX APAP:4GM/24HR) Take 1 Tablet(s) Oral TID as needed for pain 12/10/19 24 Inactive torsemide 20 mg tablet RxNorm: 060240 Take 1 Tablet(s) Oral QD 10/26/19 24 Inactive potassium chloride ER 20 mEq tablet,extended release RxNorm: 578223 Take 2 Tablet(s) Oral BID 10/26/19 24 Inactive torsemide 20 mg tablet RxNorm: 980459 Take 1 Tablet(s) Oral QD 10/26/19 24 Inactive potassium chloride ER 20 mEq tablet,extended release RxNorm: 102664 Take 2 Tablet(s) Oral BID 10/26/19 24 Inactive Artificial Tears (PF) 0.1 %-0.3 % drops in a dropperette RxNorm: 019432 Apply 1-2 Drop(s) Both eyes BID as needed 09/28/19 24 025 Inactive erythromycin 5 mg/gram (0.5 %) eye ointment RxNorm: 170858 Apply 1 Application Both eyes QHS every night at bedtime Instill ~1 cm ribbon into affected eye 09/28/19 24 024 Inactive Artificial Tears (PF) 0.1 %-0.3 % drops in a dropperette RxNorm: 922741 Apply 1-2 Drop(s) Both eyes BID as needed 09/28/19 24 024 Inactive erythromycin 5 mg/gram (0.5 %) eye ointment RxNorm: 771609 Apply 1 Application Both eyes QHS every night at bedtime Instill ~1 cm ribbon into affected eye 09/28/19 24 024 Inactive acetaminophen 500 mg tablet RxNorm: 631059 (MAX APAP:4GM/24HR) Take 1 Tablet(s) Oral TID as needed for pain 09/24/19 24 Inactive carvedilol 25 mg tablet RxNorm: 531192 Take 1 Tablet(s) Oral QD 09/08/19 No Stop Date Active pregabalin 100 mg capsule RxNorm: 839395 Take 1 Capsule(s) Oral QAM every morning 09/07/19 24 024 Inactive rosuvastatin 40 mg tablet RxNorm: 725302 Take 1 Tablet(s) Oral QPM every evening 07/13/19 24 024 Inactive ezetimibe 10 mg tablet RxNorm: 308324 Take 1 Tablet(s) Oral QD 07/13/19 24 025 Inactive bisacodyl 10 mg rectal suppository RxNorm: 210283 Insert 1 Suppository Rectal QD as needed 07/13/19 No Stop Date Active polyethylene glycol 3350 17 gram/dose oral powder RxNorm: 251017 Take 17 Gram(s) Oral BID as needed mix in 4-8ox water 07/13/19 24 025 Inactive ketoconazole 2 % shampoo RxNorm: 516833 Apply 1 Application Topical UD as directed 07/13/19 No Stop Date Active Ozempic 1 mg/dose (4 mg/3 mL) subcutaneous pen injector RxNorm: 5953353 Inject 1 Milligram(s) Subcutaneous QW once a week 07/13/19 24 No Stop Date Active Guaifenesin AC 10 mg-100 mg/5 mL oral liquid RxNorm: 053924 Take 10 Milliliter(s) Oral Q4H every four hours as needed 07/13/19 24 No Stop Date Active ammonium lactate 12 % topical cream RxNorm: 003802 Apply 1 Application Topical BID 07/13/19 24 025 Inactive hydrocortisone 2.5 % topical cream RxNorm: 054125 Apply 1 Application Topical BID as needed 07/13/19 24 No Stop Date Active rosuvastatin 20 mg sprinkle capsule RxNorm: 6115905 Take 1 Capsule(s) Oral QD 07/13/19 24 025 Inactive Vascepa 1 gram capsule RxNorm: 6844976 Take 2 Capsule(s) Oral BID 07/13/19 24 024 Inactive venlafaxine ER 75 mg capsule,extended release 24 hr RxNorm: 985817 Take 3 Capsule(s) Oral QD 07/13/19 24 024 Inactive aripiprazole 15 mg tablet RxNorm: 771621 Take 1/2 Tablet(s) Oral QD 07/13/19 24 024 Inactive isosorbide mononitrate ER 60 mg tablet,extended release 24 hr RxNorm: 226458 Take 1 Tablet(s) Oral QD 07/13/19 24 024 Inactive Basaglar KwikPen U-100 Insulin 100 unit/mL (3 mL) subcutaneous RxNorm: 3144317 Inject 30U SubQ twice daily 07/07/19 24 024 Inactive Please dispense one month supply. Basaglar KwikPen U-100 Insulin 100 unit/mL (3 mL) subcutaneous RxNorm: 5290021 Inject 30U SubQ twice daily 07/07/19 24 024 Inactive Please dispense one month supply. pregabalin 150 mg capsule RxNorm: 608877 Take 1 Capsule(s) Oral QHS every night at bedtime 07/05/19 24 024 Inactive pregabalin 150 mg capsule RxNorm: 045152 Take 1 Capsule(s) Oral QHS every night at bedtime 07/05/19 24 024 Inactive polyethylene glycol 3350 17 gram/dose oral powder RxNorm: 119464 Take 1 Packet Oral QD as needed (1 packet = 17g) mix with 4-8oz of liquid 06/15/19 24 024 Inactive bisacodyl 10 mg rectal suppository RxNorm: 649883 Insert one suppository per rectum once daily as needed for constipation 06/15/19 24 024 Inactive bisacodyl 10 mg rectal suppository RxNorm: 280568 Insert one suppository per rectum once daily as needed for constipation 06/15/19 024 Inactive pregabalin 100 mg capsule RxNorm: 670745 Take 1 Capsule(s) Oral QAM every morning 04/27/20 024 Inactive Levemir FlexPen 100 unit/mL (3 mL) solution subcutaneous insulin pen RxNorm: 022308 Inject 30 Unit(s) Subcutaneous BID 04/27/20 024 Inactive rosuvastatin 40 mg tablet RxNorm: 811337 Take 1 Tablet(s) Oral QPM every evening 04/16/20 024 Inactive D/C rosuvastatin 20mg venlafaxine ER 75 mg capsule,extended release 24 hr RxNorm: 075893 Take 3 Capsule(s) Oral QD 04/14/20 023 Inactive pregabalin 100 mg capsule RxNorm: 001633 Take 1 Capsule(s) Oral QAM every morning [...] strip clotrimazole 1 % topical cream RxNorm: 404627 Take apply topically to abdominal folds twice daily for 14 days 03/12/20 024 Inactive Ozempic 1 mg/dose (4 mg/3 mL) subcutaneous pen injector RxNorm: 5204136 Inject 1 Milligram(s) Subcutaneous QW once a week 03/11/20 023 Inactive rosuvastatin 20 mg tablet RxNorm: 341532 Take 1 Tablet(s) Oral QD 02/26/20 23 023 Inactive d/c pravastatin 80mg Ozempic 1 mg/dose (4 mg/3 mL) subcutaneous pen injector RxNorm: 2832359 Inject 1 Milligram(s) Subcutaneous QW once a week 02/20/20 23 023 Inactive pregabalin 150 mg capsule RxNorm: 992315 Take 1 Capsule(s) Oral HS at bed time 02/19/20 23 023 Inactive pregabalin 100 mg capsule RxNorm: 467245 Take 1 Capsule(s) Oral QAM every morning 02/18/20 23 023 Inactive venlafaxine ER 75 mg capsule,extended release 24 hr RxNorm: 151477 Take 3 Capsule(s) Oral QD 02/04/20 23 023 Inactive FreeStyle Chema 2 Sensor kit RxNorm: use as directed 02/04/20 23 023 Inactive FreeStyle Chema 2 Sensor kit RxNorm: use as directed 02/04/20 23 024 Inactive fluconazole 150 mg tablet RxNorm: 676450 Take 1 Tablet(s) Oral on day 3 and on day 6 02/03/20 23 024 Inactive chlorthalidone 25 mg tablet RxNorm: 457049 Take 1 Tablet(s) Oral QAM every morning 02/03/20 23 024 Inactive venlafaxine ER 150 mg capsule,extended release 24 hr RxNorm: 094985 Take 1 Capsule(s) Oral QD 02/03/20 23 023 Inactive acetaminophen 500 mg tablet RxNorm: 931509 1 TABLET ORALLY 3 TIMES DAILY (MAX APAP:4GM/24HR) 12/15/19 23 023 Inactive clotrimazole 1 % topical cream RxNorm: 080312 apply 1g topically to top of feet and in between toes BID 12/09/19 23 025 Inactive potassium chloride ER 20 mEq tablet,extended release RxNorm: 324375 Take 1 Tablet(s) Oral BID 12/09/19 23 024 Inactive d/c 20mEq once daily (sent from hospital) nystatin 100,000 unit/gram topical powder RxNorm: 060342 APPLY TO AFFECTED AREAS TOPICALLY 2 TIMES DAILY 11/21/19 23 023 Inactive Nystop 100,000 unit/gram topical powder RxNorm: 085919 Apply to abd folds, under breasts and L side of groin Topical BID x 14 days, then BID PRN 11/20/19 23 023 Inactive dx: yeast dermatitis [place] Ultra Strength 4 %-30 %-10 % topical cream RxNorm: 146880 Apply 1 Gram(s) Topical QID PRN to feet and legs for neuropathic pain 11/11/19 024 Inactive clotrimazole 1 % topical cream RxNorm: 173233 Apply 1/2 Gram(s) Topical BID Apply to affected areas of groin, periarea, and abdominal topically 2 times daily 11/10/19 023 Inactive hydrocortisone 2.5 % topical cream RxNorm: 990894 Apply 1/2 Gram(s) Topical BID as needed 11/10/19 024 Inactive Levemir FlexPen 100 unit/mL (3 mL) solution subcutaneous insulin pen RxNorm: 110006 Inject 30 Unit(s) Subcutaneous BID 10/07/19 023 Inactive Humulin R U-500 (Concentrated) Insulin 500 unit/mL subcutaneous soln RxNorm: 187653 Inject 100 Unit(s) Subcutaneous TID 10/07/19 024 Inactive Ozempic 0.25 mg or 0.5 mg (2 mg/3 mL) subcutaneous pen injector RxNorm: 8114452 Inject 1/2 Milligram(s) Subcutaneous QW once a week 10/07/19 024 Inactive aripiprazole 15 mg tablet RxNorm: 562131 1/2 TAB (7.5MG) ORALLY DAILY (DX:MAJOR DEPRESSIVE DISORDER) 09/23/19 023 Inactive Accu-Chek Guide test strips RxNorm: Use 1 Test Strip QID 09/15/19 23 023 Inactive ok to substitute with any covered alternative test strip Lancets,Thin 28 gauge RxNorm: Use 1 as directed QID 09/15/19 23 023 Inactive torsemide 20 mg tablet RxNorm: 759892 Take 1 Tablet(s) Oral BID 09/09/19 23 024 Inactive d/c once daily dosing carvedilol 25 mg tablet RxNorm: 787147 Take 1 Tablet(s) Oral QD 08/25/19 23 024 Inactive pregabalin 150 mg capsule RxNorm: 218241 1 Capsule(s) Oral HS at bed time 08/18/19 23 023 Inactive pregabalin 100 mg capsule RxNorm: 406901 1 Capsule(s) Oral QAM every morning 08/18/19 23 023 Inactive carvedilol 25 mg tablet RxNorm: 594331 1 Tablet(s) Oral QD 07/28/19 23 023 Inactive lisinopril 20 mg tablet RxNorm: 046914 Give 1 Tablet(s) Oral QD 07/28/19 23 023 Inactive Lyrica 150 mg capsule RxNorm: 563448 Take 1 Capsule(s) Oral QHS every night at bedtime 07/19/19 23 023 Inactive d/c 100mg dose Diflucan 150 mg tablet RxNorm: 281593 Take 1 Tablet(s) Oral QD repeat on day 3 and 6 07/19/19 23 023 Inactive pregabalin 100 mg capsule RxNorm: 800902 Take 1 Capsule(s) Oral QAM every morning 07/19/19 23 023 Inactive gatifloxacin 0.5 % eye drops RxNorm: 871274 Instill 1 Drop(s) as directed TID Instill 1 drop in to affected eye(s) starting 1 day prior to surgery and continue until gone (do not exceed 4 weeks). 07/13/19 23 023 Inactive carvedilol 25 mg tablet RxNorm: 073492 2 Tablet(s) Oral BID 07/13/19 23 023 Inactive Humulin R Regular U-100 Insulin 100 unit/mL injection solution RxNorm: 127352 85 Unit(s) Injection TID 07/13/19 23 023 Inactive ketorolac 0.5 % eye drops RxNorm: 226335 Instill 1 Drop(s) as directed QID Instill 1 drop into affected eye(s) 4 times daily starting 1 day prior to surgery and continue until gone (do not exceed 4 weeks). 07/13/19 023 Inactive Diflucan 150 mg tablet RxNorm: 198655 Take 1 Tablet(s) Oral QD repeat on day 3 and 6 06/30/19 023 Inactive Accu-Chek Guide test strips RxNorm: Use 1 Test Strip QID Use 1 test strip to monitor blood glucose 4 times daily and as needed. Dx:E11.42. 06/23/19 023 Inactive ok to substitute with any covered alternative test strip dextromethorphan-gu aifenesin 10 mg-100 mg/5 mL oral liquid RxNorm: 125595 Take 10 Milliliter(s) Oral every 4 hours as needed for cough 06/19/19 023 Inactive dextromethorphan-gu aifenesin 10 mg-100 mg/5 mL oral liquid RxNorm: 698359 Take 10 Milliliter(s) Oral every 4 hours as needed for cough 06/19/19 023 Inactive Lyrica 150 mg capsule RxNorm: 825685 Take 1 Capsule(s) Oral QHS every night at bedtime 06/18/19 023 Inactive d/c 100mg dose aripiprazole 15 mg tablet RxNorm: 905909 1/2 TAB (7.5MG) ORALLY DAILY (DX:MAJOR DEPRESSIVE DISORDER) 06/05/19 23 023 Inactive pregabalin 100 mg capsule RxNorm: 436017 1 Capsule(s) Oral QAM every morning 06/02/19 023 Inactive Banophen 50 mg capsule RxNorm: 3694697 Take 1 Capsule(s) Oral Q6H every 6 hours as needed 05/19/19 23 No Stop Date Active Novolog Flexpen U-100 Insulin aspart 100 unit/mL (3 mL) subcutaneous RxNorm: 1371697 Inject 10 Unit(s) Subcutaneous QHS every night at bedtime with nighttime snack 04/08/20 022 Inactive Novolog Flexpen U-100 Insulin aspart 100 unit/mL (3 mL) subcutaneous RxNorm: 7798420 Inject 42 Unit(s) Subcutaneous TID in addition to sliding scale 04/08/20 22 022 Inactive d/c 36u albuterol sulfate HFA 90 mcg/actuation aerosol inhaler RxNorm: 2127084 Take 2 Puff(s) Inhalation Q4H every four hours as needed as needed for SOB, cough, or wheezing 04/07/20 030 Active Banophen 50 mg capsule RxNorm: 3655104 Take 1 Capsule(s) Oral Q6H every 6 hours as needed 04/06/20 023 Inactive diphenhydramine 50 mg tablet RxNorm: 2389512 Take 1 Tablet(s) Oral Q6H every 6 hours as needed 04/06/20 022 Inactive diphenhydramine 50 mg tablet RxNorm: 8328239 1 Tablet(s) Oral Q6H every 6 hours as needed 04/06/20 022 Inactive Abilify 15 mg tablet RxNorm: 455772 1/2 Tablet(s) Oral QD 03/10/20 023 Inactive Shingrix (PF) 50 mcg/0.5 mL intramuscular suspension, kit RxNorm: 4486057 Administer 1/2 Milliliter(s) Intramuscular QD one time shingrix step 2 ( step 1 given 11/04/21) WITH needle - Nursing please administer upon arrival and once administered post a bridge message with date of administration, cvor nurse, expiration date, and lot# so we can update [facility] 02/18/20 22 022 Inactive dispense with needle Shingrix (PF) 50 mcg/0.5 mL intramuscular suspension, kit RxNorm: 7339919 Administer 1/2 Milliliter(s) Intramuscular QD one time shingrix step 2 ( step 1 given 11/04/21) WITH needle - Nursing please administer upon arrival and once administered post a bridge message with date of administration, cvor nurse, expiration date, and lot# so we can update [facility] 02/18/20 22 022 Inactive dispense with needle polyethylene glycol 3350 17 gram/dose oral powder RxNorm: 670156 Take 17=1 capful Gram(s) Oral QD mix with 4-8oz of liquid 01/08/20 22 025 Inactive take this in addition to BID prn order Lyrica 100 mg capsule RxNorm: 284252 Take 1 Capsule(s) Oral QAM every morning 01/08/20 22 022 Inactive d/c 50mg dose acetaminophen 500 mg tablet RxNorm: 259927 Take 1 Tablet(s) Oral TID 01/08/20 22 022 Inactive d/c PRN order Lyrica 150 mg capsule RxNorm: 218329 Take 1 Capsule(s) Oral QHS every night at bedtime 01/08/20 22 023 Inactive d/c 100mg dose Abilify 5 mg tablet RxNorm: 894848 Take 1 Tablet(s) Oral QD take 1 tab po QD #30 refill 5 dx: MDD 12/12/19 22 022 Inactive Abilify 5 mg tablet RxNorm: 452017 Take 1 Tablet(s) Oral QD take 1 tab po QD #30 refill 5 dx: MDD 12/12/19 22 022 Inactive Novolog Flexpen U-100 Insulin aspart 100 unit/mL (3 mL) subcutaneous RxNorm: 6474080 Inject 42 Unit(s) Subcutaneous TID in addition to sliding scale 12/10/19 22 022 Inactive d/c 36u chlorthalidone 25 mg tablet RxNorm: 958175 Take 1 Tablet(s) Oral QAM every morning 12/10/19 22 023 Inactive pregabalin 50 mg capsule RxNorm: 158661 Take 1 Capsule(s) Oral QAM every morning 11/12/19 022 Inactive tetanus-diphtheria toxoids-Td 2 Lf unit-2 Lf unit/0.5 mL IM suspension RxNorm: 139 Take 0.5 Miscellaneous Intramuscular 11/12/19 22 022 Inactive need tdap - nursing to administer upon arrival pregabalin 50 mg capsule RxNorm: 438589 Take 1 Capsule(s) Oral QAM every morning 10/16/19 22 022 Inactive pregabalin 50 mg capsule RxNorm: 257591 Take 1 Capsule(s) Oral QAM every morning 10/16/19 22 022 Inactive pregabalin 50 mg capsule RxNorm: 760787 1 Capsule(s) Oral QAM every morning 10/15/19 22 022 Inactive Shingrix (PF) 50 mcg/0.5 mL intramuscular suspension, kit RxNorm: 6300331 Administer 1/2 Milliliter(s) Intramuscular one time Nursing please administer upon arrival and once administered post a bridge message with date of administration, cvor nurse, expiration date, and lot# so we can update [facility]. 10/09/19 22 Inactive shingrix step 1 Shingrix (PF) 50 mcg/0.5 mL intramuscular suspension, kit RxNorm: 2858157 Administer 1/2 Milliliter(s) Intramuscular one time Nursing please administer upon arrival and once administered post a bridge message with date of administration, cvor nurse, expiration date, and lot# so we [...] aspart 100 unit/mL (3 mL) subcutaneous RxNorm: 6763630 Inject 10 Unit(s) Subcutaneous QHS every night at bedtime with nighttime snack 10/08/19 22 Inactive Shingrix (PF) 50 mcg/0.5 mL intramuscular suspension, kit RxNorm: 8096116 ADMINISTER 2-DOSE SERIES PER CDC GUIDELINES 10/08/19 22 Active Shingrix (PF) 50 mcg/0.5 mL intramuscular suspension, kit RxNorm: 9966729 ADMINISTER 2-DOSE SERIES PER CDC GUIDELINES 10/08/19 22 Inactive Novolog Flexpen U-100 Insulin aspart 100 unit/mL (3 mL) subcutaneous RxNorm: 2152494 Inject 36 Unit(s) Subcutaneous TID in addition to sliding scale 10/08/19 22 Inactive cholecalciferol (vitamin D3) 1,250 mcg (50,000 unit) capsule RxNorm: 866090 Take 1 Capsule(s) Oral QW once a week 10/08/19 22 024 Inactive Novofine Autocover 30 gauge x 1/3 needle RxNorm: Use 1 Miscellaneous UD as directed Use 1 needle as directed to administer insulin 5 times a day Dx:E11.42. 10/03/19 22 022 Inactive ok to substitute with any covered alternative pen needle benzoyl peroxide 10 % topical cleanser RxNorm: 759446 Apply 1 Application Topical QD apply to face, wash rinse and dry once daily (may change to QOD if drying) 08/19/19 22 022 Inactive (%covered by insurance) #60ml refill 11 dx: acne benzoyl peroxide 10 % topical cleanser RxNorm: 026576 Apply 1 Application Topical QD apply to face, wash rinse and dry once daily (may change to QOD if drying) 08/19/19 22 022 Inactive (%covered by insurance) #60ml refill 11 dx: acne benzoyl peroxide 10 % topical cleanser RxNorm: 276295 Apply 1 Application Topical QD apply to face, wash rinse and dry once daily (may change to QOD if drying) 08/19/19 022 Inactive (%covered by insurance) #60ml refill 11 dx: acne Lyrica 50 mg capsule RxNorm: 125936 Take 1 Capsule(s) Oral QAM every morning Take 1 capsule by mouth once daily 08/19/19 22 022 Inactive benzoyl peroxide 10 % topical cleanser RxNorm: 419317 Apply 1 Application Topical QD apply to face, wash rinse and dry once daily (may change to QOD if drying) 08/19/19 22 022 Inactive (%covered by insurance) #60ml refill 11 dx: acne Lyrica 100 mg capsule RxNorm: 752784 Take 1 Capsule(s) Oral QHS every night at bedtime Take 1 capsule by mouth once daily at bedtime 08/19/19 22 022 Inactive Lyrica 100 mg capsule RxNorm: 642592 Take 1 Capsule(s) Oral QHS every night at bedtime Take 1 capsule by mouth once daily at bedtime 08/16/19 22 022 Inactive Lyrica 50 mg capsule RxNorm: 755709 Take 1 Capsule(s) Oral QAM every morning Take 1 capsule by mouth once daily 08/16/19 22 022 Inactive Levemir FlexTouch U-100 Insulin 100 unit/mL (3 mL) subcutaneous pen RxNorm: 789639 Inject 86 Unit(s) Subcutaneous BID 08/05/19 22 022 Inactive d/c 83units BID Lyrica 100 mg capsule RxNorm: 626685 Take 1 Capsule(s) Oral QHS every night at bedtime Take 1 capsule by mouth once daily at bedtime 07/14/19 22 022 Inactive Lyrica 50 mg capsule RxNorm: 834248 Take 1 Capsule(s) Oral QAM every morning Take 1 capsule by mouth once daily 07/14/19 22 022 Inactive Levemir FlexTouch U-100 Insulin 100 unit/mL (3 mL) subcutaneous pen RxNorm: 824825 Inject 83 Unit(s) Subcutaneous BID 07/08/19 22 [...] test strip hydralazine 50 mg tablet RxNorm: 542736 Take 1 Tablet(s) Oral QID 05/05/20 21 022 Inactive venlafaxine ER 225 mg tablet,extended release 24 hr RxNorm: 198204 Take 1 Tablet(s) Oral QD 05/05/20 Inactive venlafaxine ER 225 mg tablet,extended release 24 hr RxNorm: 322921 Take 1 Tablet(s) Oral QD 05/05/20 022 Inactive isosorbide mononitrate ER 30 mg tablet,extended release 24 hr RxNorm: 481622 Take 1 Tablet(s) Oral QD 05/05/20 024 Inactive hydralazine 50 mg tablet RxNorm: 411084 Take 1 Tablet(s) Oral QID 05/05/20 Inactive aspirin 81 mg tablet,delayed release RxNorm: 661589 Take 1 Tablet(s) Oral QD 03/31/20 022 Inactive Vitamin D2 1,250 mcg (50,000 unit) capsule RxNorm: 3140524 Take 1 Capsule(s) Oral QW once a week x 12 weeks 03/31/20 022 Inactive Vitamin D2 1,250 mcg (50,000 unit) capsule RxNorm: 9050587 Take 1 Capsule(s) Oral QW once a week 03/31/20 021 Inactive Zetia 10 mg tablet RxNorm: 706389 Take 1 Tablet(s) Oral QD 03/31/20 21 024 Inactive Zetia 10 mg tablet RxNorm: 006700 Take 1 Tablet(s) Oral QD 03/31/20 021 Inactive hydralazine 25 mg tablet RxNorm: 094056 Take 1 Tablet(s) Oral QID 03/31/20 021 Inactive hydralazine 25 mg tablet RxNorm: 664325 Take 1 Tablet(s) Oral QID 03/31/20 021 Inactive hydralazine 10 mg tablet RxNorm: 010183 Take 1 Tablet(s) Oral QID 03/03/20 021 Inactive cephalexin 500 mg tablet RxNorm: 473531 Take 1 Tablet(s) Oral QID 02/27/20 021 Inactive cephalexin 500 mg tablet RxNorm: 307967 Take 1 Tablet(s) Oral QID 02/27/20 021 Inactive lisinopril 40 mg tablet RxNorm: 282583 Take 1 Tablet(s) Oral QD 02/11/20 023 Inactive Eliquis 5 mg tablet RxNorm: 9192496 Take 1 Tablet(s) Oral BID 01/05/20 025 Inactive Eliquis 5 mg tablet RxNorm: 6334018 Take 2 Tablet(s) Oral QD 01/01/20 21 021 Inactive Lyrica 50 mg capsule RxNorm: 942057 Take 1 Capsule(s) Oral QAM every morning 12/24/19 021 Inactive Lyrica 100 mg capsule RxNorm: 483385 Take 1 Capsule(s) Oral QHS every night at bedtime 12/24/19 21 021 Inactive clotrimazole 1 % topical cream RxNorm: 371367 Apply to right foot and toes Topical BID 12/04/19 21 023 Inactive metoprolol succinate ER 200 mg tablet,extended release 24 hr RxNorm: 049963 Take 1 Tablet(s) Oral QD 12/04/19 21 023 Inactive ciprofloxacin 500 mg tablet RxNorm: 895647 Take 1 Tablet(s) Oral QD 11/30/19 21 021 Inactive DX ofloxacin otic drops Accu-Chek Guide test strips RxNorm: USE 1 TO CHECK GLUCOSE 4 TIMES DAILY AND NEEDED 11/15/19 21 023 Inactive Blood Glucose Test strips RxNorm: Use 1 Test Strip QID at PRN 11/05/19 21 023 Inactive E11.42 lisinopril 30 mg tablet RxNorm: 161768 Take 1 Tablet(s) Oral QD 10/30/19 021 Inactive lisinopril 20 mg tablet RxNorm: 841949 Take 1 Tablet(s) Oral QD 10/23/19 21 021 Inactive lisinopril 20 mg tablet RxNorm: 005345 Take 1 Tablet(s) Oral QD 10/23/19 21 021 Inactive lisinopril 10 mg tablet RxNorm: 322596 Take 1 Tablet(s) Oral QD 10/02/19 021 Inactive icosapent ethyl 1 gram capsule RxNorm: 1356144 Take 2 Capsule(s) (2 gm) Oral BID with meals 09/12/19 21 024 Inactive Okay to dispense one 2gm tab if you have that available. icosapent ethyl 1 gram capsule RxNorm: 4164061 Take 2 Capsule(s) Oral BID 09/12/19 21 021 Inactive Okay to dispense one 2gm tab if you have that available. amlodipine 10 mg tablet RxNorm: 089274 Take 1 Tablet(s) Oral QD 09/04/19 21 021 Inactive aspirin 81 mg tablet,delayed release RxNorm: 451012 Take 1 Tablet(s) Oral QD 09/04/19 21 021 Inactive Levemir FlexTouch U-100 Insulin 100 unit/mL (3 mL) subcutaneous pen RxNorm: 163178 Inject 150 Unit(s) Subcutaneous BID 09/04/19 21 022 Inactive venlafaxine ER 150 mg tablet,extended release 24 hr RxNorm: 453715 Take 1 Tablet(s) Oral QD 09/04/19 21 021 Inactive clotrimazole-betame thasone 1 %-0.05 % topical cream RxNorm: 652869 Apply to rash on red area on left abdomen/chest Topical BID 08/10/19 21 021 Inactive amlodipine 5 mg tablet RxNorm: 676456 Take 1 Tablet(s) Oral QD 07/31/19 21 021 Inactive cephalexin 500 mg tablet RxNorm: 702566 Take 1 Tablet(s) Oral BID BID - Twice Daily 07/31/19 21 021 Inactive Start 08/01/20 pantoprazole 40 mg tablet,delayed release RxNorm: 427283 Take 1 Tablet(s) Oral QAM every morning 07/08/19 025 Inactive senna 8.6 mg tablet RxNorm: 707723 Take 1 Tablet(s) Oral QD 07/08/19 025 Inactive carbamazepine 200 mg tablet RxNorm: 849736 Take 1 Tablet(s) Oral BID 07/08/19 025 Inactive clopidogrel 75 mg tablet RxNorm: 215262 Take 1 Tablet(s) Oral QD 07/08/19 021 Inactive Blood Glucose Test strips RxNorm: Use 1 Test Strip QID at PRN 07/08/19 021 Inactive E11.42 Novolog Flexpen U-100 Insulin aspart 100 unit/mL (3 mL) subcutaneous RxNorm: 6460931 Administer per sliding scale Milliliter(s) Subcutaneous TID 151-200: 10 u; 201-250: 20 u; 251-300: 30 u; 301-350: 40 u; 351-400: 50 u. 07/08/19 022 Inactive lisinopril 5 mg tablet RxNorm: 225153 Take 1 Tablet(s) Oral QD 07/08/19 021 Inactive Novolog Flexpen U-100 Insulin aspart 100 unit/mL (3 mL) subcutaneous RxNorm: 8815183 Inject 85 Unit(s) Subcutaneous TID 07/08/19 022 Inactive pravastatin 80 mg tablet RxNorm: 647842 Take 1 Tablet(s) Oral QHS every night at bedtime 07/08/19 21 023 Inactive clotrimazole 1 % topical cream RxNorm: 844534 Apply to bilateral groin areas Topical BID 07/08/19 022 Inactive metoprolol succinate ER 200 mg tablet,extended release 24 hr RxNorm: 013550 Take 1 Tablet(s) Oral QD 07/08/19 021 Inactive Vitamin D3 25 mcg (1,000 unit) tablet RxNorm: 069292 Take 1 Tablet(s) Oral QD 07/08/19 021 Inactive isosorbide dinitrate 30 mg tablet RxNorm: 103437 Take 1 Tablet(s) Oral QD 07/08/19 021 Inactive Levemir FlexTouch U-100 Insulin 100 unit/mL (3 mL) subcutaneous pen RxNorm: 266366 Inject 140 Unit(s) Subcutaneous BID 07/08/19 021 Inactive torsemide 20 mg tablet RxNorm: 125834 Take 1 Tablet(s) Oral QD 07/08/19 023 Inactive venlafaxine 75 mg tablet RxNorm: 671917 Take 1 Tablet(s) Oral QD 07/08/19 021 Inactive acetaminophen 500 mg tablet RxNorm: 114153 Take 1 Tablet(s) Oral TID as needed for headache 06/18/19 21 021 Inactive acetaminophen 500 mg tablet RxNorm: 984092 Take 1 Tablet(s) Oral TID as needed for headache 06/18/19 021 Inactive Lyrica 100 mg capsule RxNorm: 906292 Take 1 Capsule(s) Oral QHS every night at bedtime 06/11/19 021 Inactive Lyrica 50 mg capsule RxNorm: 259909 Take 1 Capsule(s) Oral QAM every morning 06/10/19 021 Inactive hydrocortisone 2.5 % topical cream RxNorm: 330582 Apply to bilateral groin creases Topical BID 05/15/20 20 021 Inactive clotrimazole 1 % topical cream RxNorm: 211525 Apply to bilateral groin areas Topical BID 05/15/20 20 021 Inactive Lyrica 50 mg capsule RxNorm: 250644 Take 1 Capsule(s) Oral QAM every morning 05/14/20 20 020 Inactive Lyrica 100 mg capsule RxNorm: 769714 Take 1 Capsule(s) Oral QHS every night [...] Inactive Nystop 100,000 unit/gram topical powder RxNorm: 384709 Apply to abd folds, under breasts and L side of groin Topical BID x 14 days, then BID PRN 04/08/20 20 020 Inactive dx: yeast dermatitis Lyrica 100 mg capsule RxNorm: 581895 Take 1 Capsule(s) Oral QHS every night at bedtime 03/13/20 20 Inactive Lyrica 50 mg capsule RxNorm: 492009 Take 1 Capsule(s) Oral QAM every morning 03/13/20 20 Inactive ketoconazole 2 % shampoo RxNorm: 116368 Apply Topical two times a week with showers 03/11/20 20 024 Inactive cholecalciferol (vitamin D3) 50 mcg (2,000 unit) tablet RxNorm: 844802 Take 1 Tablet(s) Oral QD 03/11/20 20 021 Inactive Zetia 10 mg tablet RxNorm: 028207 Take 1 Tablet(s) Oral QD 03/07/20 20 021 Inactive Zetia 10 mg tablet RxNorm: 835462 Take 1 Tablet(s) Oral QD 03/07/20 20 020 Inactive Lyrica 50 mg capsule RxNorm: 163524 Take 1 Capsule(s) Oral QAM every morning 02/15/20 20 Inactive Lyrica 100 mg capsule RxNorm: 363146 Take 1 Capsule(s) Oral QHS every night at bedtime 02/15/20 20 Inactive Lyrica 100 mg capsule RxNorm: 962029 Take 1 Capsule(s) Oral QHS every night at bedtime 02/15/20 20 Inactive Lyrica 50 mg capsule RxNorm: 385141 Take 1 Capsule(s) Oral QAM every morning 02/15/20 20 Inactive metoprolol succinate ER 200 mg tablet,extended release 24 hr RxNorm: 869862 Take 1 Tablet(s) Oral QD 08/12/19 025 Inactive loperamide 2 mg capsule RxNorm: 334831 Take 1 Capsule(s) Oral QID as needed 09/06/19 025 Inactive hydralazine 50 mg tablet RxNorm: 818061 Take 1 Tablet(s) Oral QID 08/12/19 025 Inactive Soft Touch Lancets RxNorm: miscellaneous 03/04/20 24 025 Inactive venlafaxine ER 75 mg capsule,extended release 24 hr RxNorm: 458144 Take 3 Capsule(s) Oral QD 06/12/19 023 Inactive polyethylene glycol 3350 17 gram/dose oral powder RxNorm: 803683 Take 17=1 capful Gram(s) Oral BID as needed mix with 4-8oz of liquid 06/12/19 22 024 Inactive icosapent ethyl 1 gram capsule RxNorm: 3575367 Take 2 Capsule(s) (2 gm) Oral BID with meals 10/07/19 23 023 Inactive Okay to dispense one 2gm tab if you have that available. Levemir FlexTouch U-100 Insulin 100 unit/mL (3 mL) subcutaneous pen RxNorm: 252910 Inject 80 Unit(s) Subcutaneous BID 07/14/19 23 023 Inactive Novolog Flexpen U-100 Insulin aspart 100 unit/mL (3 mL) subcutaneous RxNorm: 4084107 Insert 30 Unit(s) Subcutaneous TID with meals [...] Planned Activity Notes Codes Status Date Referral: [facility] 2000 [id number] [place]ReferralAppointment Chcwjbuhk95/06/2025Referral: [facility]/Endocrinology WPtel: [address] [id number] USReferralNo Records [id number]/24/2025Referral: [facility] WPtel: [address], [address] [id number] USReferralRecords [id number]/08/2023Referral: [facility] WPtel: [address] [id number]/12/2022eferral: General CardiologyReferralCompleted 1Referral: General PsychologistReferralClosedReferral: General PsychiatristReferralPatient/Family [...] Sister Jyotsna involved in his care cell# [phone] Guardian: Giulia (tapan met in person 09/01/21), [...] appointment 05.26.2024 with Jessa Webster MD at [facility]. Start Pioglitazone 15 mg QD. Stop Basaglar insulin. Increase Ozempic 2 mg once wkly. Continue Humalin R U-500 100 units with meals TID. FOLLOW UP 2 MONTHS. If BG >400 add 50 units to next scheduled dose of Humalin R U 500 insulin 06/12/2024
--- OUTSIDE RECORDS SUMMARY | 2024-10-19 18:28 | XMS_ITS | CCD ---
Author Name Cecilio Durham Address [address] [facility] [address] [place] [address] Phone Organization [facility] Phone Care Team Providers Care Water Attendant Name Role Phone Harrison Durham Primary Care Provider Leona vailable Unavailable Chronic Care Management Unavaila ble Summary Purpose DataExchange Insurance Providers Payer name Policy type / Coverage type Covered constitution party ID Effective Begin Date Effective End Date Medicare [place] Medicare Part B [id number] Unknown Unknown [place] Medicare Part B [id number] Unknown Unknown Family history Sister Brittany Suggs Diagnosis Age At Onset No Family Disease Entered N/A Runs in the family Diagnosis Age At Onset No Known Diseases N/A Sister Blanka Mcduffie Diagnosis Age At Onset No Family Disease Entered N/A Social History Social History Element Codes Description Effec tive Dates Tobacco history SNOMED CT: 863712078 Never smoker 01/16 Sexually Active? Unknown No [...] Facility 09/03/19 [address]: 667551243 No Alcohol Consum ption 09/02/2020 Allergies, Adverse Reactions, Alerts Substance Reaction Codes Entered Date Inactivated Date Status * NO KNOWN FOOD ALLERGIES Uppmqjx3007/13/2023No Inactive DateActiveLISINOPRILRxNorm: 670895802/12/2020No Inactive DateActiveMetformin OQvAixzopm48No Inactive DateActive* NO KNOWN ENVIRONMENTAL [id number]/27/2024No Inactive DateActive Problems Condition Codes Effective Dates [...] planning - to document end of life qvrlslrgiynXxuxuzz42/24/2024ctiveAmputated toe of right footICD-10: S98.131A ICD-9: 895.009ctiveAnnual [...] E55.9 ICD-9: 268.909ctiveCallus of heelICD-10: L84 ICD-9: 01113esolvedGout due to renal impairmentICD-10: M10.30 ICD-9: 274.1005esolvedHyperhidrosis of palmsICD-10: L74.512 ICD-9: 705.21010/12/2023esolvedHyperlipidemia, unspecifiedICD-10: E78.5 ICD-9: 272.405/esolvedOther snf (current) drug therapyICD-10: Z79.899 ICD-9: V58.6905esolvedPain of [...] tagICD-10: L91.8 ICD-9: 701.904esolvedCoronary artery disease involving soboba coronary artery of soboba heart, angina presence unspecifiedICD-10: I25.10 ICD-9: 414.0102/ctiveInappropriate sexual behaviorICD-10: Z72.89 ICD-9: 312.8910/ctivePre-op evaluationICD-10: Z01.818 ICD-9: V72.8403/ctiveSecondary hypertensionICD-10: I15.9 ICD-9: 405.9903/3ActiveDepressionICD-10: F32.9 ICD-9: 89303/esolvedDVT (deep venous thrombosis)ICD-10: I82.409 ICD-9: 453.4009/esolvedEncounter for [...] to other viral communicable diseasesICD-10: Z20.828 ICD-9: V01.7902/9051AwjikxnyKtqdzixeKbfnnpa98/28/2020ActiveDiabetes mellitus Type 8Dedsgvg24/28/2020ActiveAnemia in chronic kidney diseaseICD-10: D63.1 02/12/2020ResolvedHyperlipidemia, unspecifiedICD-10: E78.509Resolved Medications Medication Codes Instructions Start Date Stop Date Status Fill Instructions nystatin 100,000 unit/gram topical powder RxNorm: 230496 Apply 1 Application Topical BID as needed abdominal/breast /groin folds 01/08 026 Active pregabalin 100 mg capsule RxNorm: 111040 Take 1 Capsule(s) Oral QAM every morning 05/22/19 025 Inactive nystatin 100,000 unit/gram topical powder RxNorm: 245056 Apply 1 Application Topical BID as needed abdominal/breast /groin folds 04/11/20 024 Inactive chlorthalidone 25 mg tablet RxNorm: 335413 Take 1 Tablet(s) Oral QAM every morning 04/06/20 No Stop Date Active pregabalin 150 mg capsule RxNorm: 969355 Take 1 Capsule(s) Oral QHS every night at bedtime 03/31/20 024 Inactive Vascepa 1 gram capsule RxNorm: 5789452 Take 2 Capsule(s) Oral BID 03/30/20 025 Active rosuvastatin 40 mg tablet RxNorm: 469890 1 TAB ORALLY EVERY EVENING (DX:CORONARY ARTERY DISEASE) 03/28/20 No Stop Date Active venlafaxine ER 75 mg capsule,extended release 24 hr RxNorm: 830850 3 CAPS (225MG) ORALLY DAILY (DX: MOOD DISORDER) 03/28/20 No Stop Date Active pregabalin 100 mg capsule RxNorm: 812747 Take 1 Capsule(s) Oral QAM every morning 03/20/20 024 Inactive cholecalciferol (vitamin D3) 1,250 mcg (50,000 unit) capsule RxNorm: 889093 Take 1 Capsule(s) Oral QW once a [...] Insulin 100 unit/mL (3 mL) subcutaneous RxNorm: 0713857 Inject 40 Unit(s) Subcutaneous BID 03/07/20 025 Inactive Please dispense one month supply. Humulin R U-500 (Concentrated) Insulin 500 unit/mL subcutaneous soln RxNorm: 927979 Inject 100 Unit(s) Subcutaneous AC before meals [...] PRN) to be use with new Accu Ernest meter 03/04/20 Inactive ok to substitute with any covered alternative test strip FreeStyle Chema 2 Sensor kit RxNorm: Use UD as directed 03/02/20 Inactive FreeStyle Chema 2 Sensor kit RxNorm: Use UD as directed 03/02/20 Inactive Pen Needle 30 gauge x 516 RxNorm: Pen(s) Use 1 needle as directed TID 03/02/20 Inactive nystatin 100,000 unit/gram topical powder RxNorm: 931031 Apply 1 Application Topical BID as needed [...] (Concentrated) Insulin 500 unit/mL subcutaneous soln RxNorm: 099978 Inject 100 Unit(s) Subcutaneous TID 02/17/20 24 024 Inactive Humulin R U-500 (Concentrated) Insulin 500 unit/mL subcutaneous soln RxNorm: 433163 Inject 100 Unit(s) Subcutaneous TID 02/10/20 24 024 Inactive Basaglar KwikPen U-100 Insulin 100 unit/mL (3 mL) subcutaneous RxNorm: 6913082 Inject 30 Unit(s) Subcutaneous BID 02/10/20 24 024 Inactive Please dispense one month supply. pregabalin 100 mg capsule RxNorm: 555798 Take 1 Capsule(s) Oral QAM every morning 02/07/20 24 024 Inactive isosorbide mononitrate ER 60 mg tablet,extended release 24 hr RxNorm: 846329 Take 1 Tablet(s) Oral QD 02/01/20 24 025 Active aripiprazole 15 mg tablet RxNorm: 625552 Take 1/2 Tablet(s) Oral QD 02/01/20 24 025 Active torsemide 20 mg tablet RxNorm: 115187 1 TAB ORALLY DAILY (DX: EDEMA) 01/27/20 No Stop Date Active potassium chloride ER 20 mEq tablet,extended release(part/cryst) RxNorm: 4213716 2 TABS (40MEQ) ORALLY TWICE DAILY (DX: HYPOKALEMIA) 01/27/20 24 025 Inactive cephalexin 500 mg capsule RxNorm: 731264 Take 1 Capsule(s) Oral QID 12/17/19 24 024 Inactive cephalexin 500 mg capsule RxNorm: 226566 Take 1 Capsule(s) Oral QID 12/17/19 24 024 Inactive acetaminophen 500 mg tablet RxNorm: 459821 (MAX APAP:4GM/24HR) Take 1 Tablet(s) Oral TID [...] %-0.3 % drops in a dropperette RxNorm: 313027 Apply 1-2 Drop(s) Both eyes BID as needed 09/28/19 24 Inactive erythromycin 5 mg/gram (0.5 %) eye ointment RxNorm: 304335 Apply 1 Application Both eyes QHS every night at bedtime Instill ~1 cm ribbon into affected eye 09/28/19 24 Inactive Artificial Tears (PF) 0.1 %-0.3 % drops in a dropperette RxNorm: 415966 Apply 1-2 Drop(s) Both eyes BID as needed 09/28/19 24 Inactive erythromycin 5 mg/gram (0.5 %) eye ointment RxNorm: 911934 Apply 1 Application Both eyes QHS every night at bedtime Instill ~1 cm ribbon into affected eye 09/28/19 24 Inactive acetaminophen 500 mg tablet RxNorm: 090038 (MAX APAP:4GM/24HR) Take 1 Tablet(s) Oral TID as needed for pain 09/24/19 24 024 Inactive carvedilol 25 mg tablet RxNorm: 660609 Take 1 Tablet(s) Oral QD 09/08/19 24 No Stop Date Active pregabalin 100 mg capsule RxNorm: 118498 Take 1 Capsule(s) Oral QAM every morning 09/07/19 24 024 Inactive ezetimibe 10 mg tablet RxNorm: 177979 Take 1 Tablet(s) Oral QD 07/13/19 24 025 Inactive bisacodyl 10 mg rectal suppository RxNorm: 900877 Insert 1 Suppository Rectal QD as needed 07/13/19 24 No Stop Date Active polyethylene glycol 3350 17 gram/dose oral powder RxNorm: 636646 Take 17 Gram(s) Oral BID as needed mix in 4-8ox water 07/13/19 24 025 Inactive ketoconazole 2 % shampoo RxNorm: 818966 Apply 1 Application Topical UD as directed 07/13/19 No Stop Date Active Ozempic 1 mg/dose (4 mg/3 mL) subcutaneous pen injector RxNorm: 8733497 Inject 1 Milligram(s) Subcutaneous QW once a week 07/13/19 No Stop Date Active Guaifenesin AC 10 mg-100 mg/5 mL oral liquid RxNorm: 369664 Take 10 Milliliter(s) Oral Q4H every four hours as needed 07/13/19 No Stop Date Active ammonium lactate 12 % topical cream RxNorm: 672405 Apply 1 Application Topical BID 07/13/19 24 025 Inactive hydrocortisone 2.5 % topical cream RxNorm: 502074 Apply 1 Application Topical BID as needed 07/13/19 No Stop Date Active rosuvastatin 20 mg sprinkle capsule RxNorm: 3909871 Take 1 Capsule(s) Oral QD 07/13/19 24 025 Inactive rosuvastatin 40 mg tablet RxNorm: 371243 Take 1 Tablet(s) Oral QPM every evening 07/13/19 24 024 Inactive aripiprazole 15 mg tablet RxNorm: 786868 Take 1/2 Tablet(s) Oral QD 07/13/19 24 024 Inactive isosorbide mononitrate ER 60 mg tablet,extended release 24 hr RxNorm: 671796 Take 1 Tablet(s) Oral QD 07/13/19 24 024 Inactive Vascepa 1 gram capsule RxNorm: 3053007 Take 2 Capsule(s) Oral BID 07/13/19 24 024 Inactive venlafaxine ER 75 mg capsule,extended release 24 hr RxNorm: 005457 Take 3 Capsule(s) Oral QD 07/13/19 24 024 Inactive Basaglar KwikPen U-100 Insulin 100 unit/mL (3 mL) subcutaneous RxNorm: 3409312 Inject 30U SubQ twice daily 07/07/19 24 024 Inactive Please dispense one month supply. Basaglar KwikPen U-100 Insulin 100 unit/mL (3 mL) subcutaneous RxNorm: 7828106 Inject 30U SubQ twice daily 07/07/19 24 024 Inactive Please dispense one month supply. pregabalin 150 mg capsule RxNorm: 292163 Take 1 Capsule(s) Oral QHS every night at bedtime 07/05/19 24 024 Inactive pregabalin 150 mg capsule RxNorm: 511141 Take 1 Capsule(s) Oral QHS every night at bedtime 07/05/19 24 024 Inactive polyethylene glycol 3350 17 gram/dose oral powder RxNorm: 729398 Take 1 Packet Oral QD as needed (1 packet = 17g) mix with 4-8oz of liquid 06/15/19 24 024 Inactive bisacodyl 10 mg rectal suppository RxNorm: 431225 Insert one suppository per rectum once daily as needed for constipation 06/15/19 24 024 Inactive bisacodyl 10 mg rectal suppository RxNorm: 679245 Insert one suppository per rectum once daily as needed for constipation 06/15/19 24 024 Inactive pregabalin 100 mg capsule RxNorm: 608466 Take 1 Capsule(s) Oral QAM every morning 04/27/20 23 024 Inactive Levemir FlexPen 100 unit/mL (3 mL) solution subcutaneous insulin pen RxNorm: 770491 Inject 30 Unit(s) Subcutaneous BID 04/27/20 23 024 Inactive rosuvastatin 40 mg tablet RxNorm: 076252 Take 1 Tablet(s) Oral QPM every evening 04/16/20 23 024 Inactive D/C rosuvastatin 20mg venlafaxine ER 75 mg capsule,extended release 24 hr RxNorm: 639325 Take 3 Capsule(s) Oral QD 04/14/20 23 023 Inactive pregabalin 100 mg capsule RxNorm: 427540 Take 1 Capsule(s) Oral QAM every morning [...] strip clotrimazole 1 % topical cream RxNorm: 169156 Take apply topically to abdominal folds twice daily for 14 days 03/12/20 23 024 Inactive Ozempic 1 mg/dose (4 mg/3 mL) subcutaneous pen injector RxNorm: 3204645 Inject 1 Milligram(s) Subcutaneous QW once a week 03/11/20 23 023 Inactive rosuvastatin 20 mg tablet RxNorm: 613502 Take 1 Tablet(s) Oral QD 02/26/20 23 023 Inactive d/c pravastatin 80mg Ozempic 1 mg/dose (4 mg/3 mL) subcutaneous pen injector RxNorm: 7953608 Inject 1 Milligram(s) Subcutaneous QW once a week 02/20/20 23 023 Inactive pregabalin 150 mg capsule RxNorm: 449720 Take 1 Capsule(s) Oral HS at bed time 02/19/20 23 023 Inactive pregabalin 100 mg capsule RxNorm: 905516 Take 1 Capsule(s) Oral QAM every morning 02/18/20 23 023 Inactive venlafaxine ER 75 mg capsule,extended release 24 hr RxNorm: 908467 Take 3 Capsule(s) Oral QD 02/04/20 23 023 Inactive FreeStyle Chema 2 Sensor kit RxNorm: use as directed 02/04/20 23 023 Inactive FreeStyle Chema 2 Sensor kit RxNorm: use as directed 02/04/20 23 024 Inactive fluconazole 150 mg tablet RxNorm: 821127 Take 1 Tablet(s) Oral on day 3 and on day 6 02/03/20 024 Inactive venlafaxine ER 150 mg capsule,extended release 24 hr RxNorm: 394920 Take 1 Capsule(s) Oral QD 02/03/20 023 Inactive chlorthalidone 25 mg tablet RxNorm: 568104 Take 1 Tablet(s) Oral QAM every morning 02/03/20 024 Inactive acetaminophen 500 mg tablet RxNorm: 712883 1 TABLET ORALLY 3 TIMES DAILY (MAX APAP:4GM/24HR) 12/15/19 23 023 Inactive clotrimazole 1 % topical cream RxNorm: 655022 apply 1g topically to top of feet and in between toes BID 12/09/19 23 025 Inactive potassium chloride ER 20 mEq tablet,extended release RxNorm: 840983 Take 1 Tablet(s) Oral BID 12/09/19 024 Inactive d/c 20mEq once daily (sent from hospital) nystatin 100,000 unit/gram topical powder RxNorm: 989019 APPLY TO AFFECTED AREAS TOPICALLY 2 TIMES DAILY 11/21/19 23 023 Inactive Nystop 100,000 unit/gram topical powder RxNorm: 984996 Apply to abd folds, under breasts and L side of groin Topical BID x 14 days, then BID PRN 11/20/19 23 023 Inactive dx: yeast dermatitis Bengay Ultra Strength 4 %-30 %-10 % topical cream RxNorm: 254474 Apply 1 Gram(s) Topical QID PRN to feet and legs for neuropathic pain 11/11/19 23 024 Inactive clotrimazole 1 % topical cream RxNorm: 697039 Apply 1/2 Gram(s) Topical BID Apply to affected areas of groin, periarea, and abdominal topically 2 times daily 11/10/19 23 023 Inactive hydrocortisone 2.5 % topical cream RxNorm: 804757 Apply 1/2 Gram(s) Topical BID as needed 11/10/19 23 024 Inactive Levemir FlexPen 100 unit/mL (3 mL) solution subcutaneous insulin pen RxNorm: 021735 Inject 30 Unit(s) Subcutaneous BID 10/07/19 23 023 Inactive Humulin R U-500 (Concentrated) Insulin 500 unit/mL subcutaneous soln RxNorm: 221521 Inject 100 Unit(s) Subcutaneous TID 10/07/19 23 024 Inactive Ozempic 0.25 mg or 0.5 mg (2 mg/3 mL) subcutaneous pen injector RxNorm: 7752665 Inject 1/2 Milligram(s) Subcutaneous QW once a week 10/07/19 23 024 Inactive aripiprazole 15 mg tablet RxNorm: 318541 1/2 TAB (7.5MG) ORALLY DAILY (DX:MAJOR DEPRESSIVE DISORDER) 09/23/19 23 023 Inactive Accu-Chek Guide test strips RxNorm: Use 1 Test Strip QID 09/15/19 23 023 Inactive ok to substitute with any covered alternative test strip Lancets,Thin 28 gauge RxNorm: Use 1 as directed QID 09/15/19 23 023 Inactive torsemide 20 mg tablet RxNorm: 025604 Take 1 Tablet(s) Oral BID 09/09/19 024 Inactive d/c once daily dosing carvedilol 25 mg tablet RxNorm: 463733 Take 1 Tablet(s) Oral QD 08/25/19 23 024 Inactive pregabalin 150 mg capsule RxNorm: 058973 1 Capsule(s) Oral HS at bed time 08/18/19 023 Inactive pregabalin 100 mg capsule RxNorm: 756298 1 Capsule(s) Oral QAM every morning 08/18/19 023 Inactive carvedilol 25 mg tablet RxNorm: 069749 1 Tablet(s) Oral QD 07/28/19 23 023 Inactive lisinopril 20 mg tablet RxNorm: 224473 Give 1 Tablet(s) Oral QD 07/28/19 23 023 Inactive Lyrica 150 mg capsule RxNorm: 579758 Take 1 Capsule(s) Oral QHS every night at bedtime 07/19/19 23 023 Inactive d/c 100mg dose Diflucan 150 mg tablet RxNorm: 308424 Take 1 Tablet(s) Oral QD repeat on day 3 and 6 07/19/19 23 023 Inactive pregabalin 100 mg capsule RxNorm: 345622 Take 1 Capsule(s) Oral QAM every morning 07/19/19 23 023 Inactive gatifloxacin 0.5 % eye drops RxNorm: 476933 Instill 1 Drop(s) as directed TID Instill 1 drop in to affected eye(s) starting 1 day prior to surgery and continue until gone (do not exceed 4 weeks). 07/13/19 23 023 Inactive carvedilol 25 mg tablet RxNorm: 459787 2 Tablet(s) Oral BID 07/13/19 23 023 Inactive Humulin R Regular U-100 Insulin 100 unit/mL injection solution RxNorm: 392738 85 Unit(s) Injection TID 07/13/19 23 023 Inactive ketorolac 0.5 % eye drops RxNorm: 766269 Instill 1 Drop(s) as directed QID Instill 1 drop into affected eye(s) 4 times daily starting 1 day prior to surgery and continue until gone (do not exceed 4 weeks). 07/13/19 23 023 Inactive Diflucan 150 mg tablet RxNorm: 403120 Take 1 Tablet(s) Oral QD repeat on day 3 and 6 06/30/19 23 023 Inactive Accu-Chek Guide test strips RxNorm: Use 1 Test Strip QID Use 1 test strip to monitor blood glucose 4 times daily and as needed. Dx:E11.42. 06/23/19 23 023 Inactive ok to substitute with any covered alternative test strip dextromethorphan-gu aifenesin 10 mg-100 mg/5 mL oral liquid RxNorm: 094835 Take 10 Milliliter(s) Oral every 4 hours as needed for cough 06/19/19 23 023 Inactive dextromethorphan-gu aifenesin 10 mg-100 mg/5 mL oral liquid RxNorm: 916295 Take 10 Milliliter(s) Oral every 4 hours as needed for cough 06/19/19 023 Inactive Lyrica 150 mg capsule RxNorm: 898051 Take 1 Capsule(s) Oral QHS every night at bedtime 06/18/19 023 Inactive d/c 100mg dose aripiprazole 15 mg tablet RxNorm: 212979 /2 TAB (7.5MG) ORALLY DAILY (DX:MAJOR DEPRESSIVE DISORDER) 06/05/19 023 Inactive pregabalin 100 mg capsule RxNorm: 403930 1 Capsule(s) Oral QAM every morning 06/02/19 023 Inactive Banophen 50 mg capsule RxNorm: 5063639 Take 1 Capsule(s) Oral Q6H every 6 hours as needed 05/19/19 No Stop Date Active Novolog Flexpen U-100 Insulin aspart 100 unit/mL (3 mL) subcutaneous RxNorm: 3522819 Inject 10 Unit(s) Subcutaneous QHS every night at bedtime with nighttime snack 04/08/20 022 Inactive Novolog Flexpen U-100 Insulin aspart 100 unit/mL (3 mL) subcutaneous RxNorm: 3552048 Inject 42 Unit(s) Subcutaneous TID in addition to sliding scale 04/08/20 022 Inactive d/c 36u albuterol sulfate HFA 90 mcg/actuation aerosol inhaler RxNorm: 8595484 Take 2 Puff(s) Inhalation Q4H every four hours as needed as needed for SOB, cough, or wheezing 04/07/20 030 Active Banophen 50 mg capsule RxNorm: 2378822 Take 1 Capsule(s) Oral Q6H every 6 hours as needed 04/06/20 023 Inactive diphenhydramine 50 mg tablet RxNorm: 1060837 Take 1 Tablet(s) Oral Q6H every 6 hours as needed 04/06/20 022 Inactive diphenhydramine 50 mg tablet RxNorm: 3187534 1 Tablet(s) Oral Q6H every 6 hours as needed 04/06/20 022 Inactive Abilify 15 mg tablet RxNorm: 706004 1/2 Tablet(s) Oral QD 03/10/20 22 023 Inactive Shingrix (PF) 50 mcg/0.5 mL intramuscular suspension, kit RxNorm: 7548399 Administer 1/2 Milliliter(s) Intramuscular QD one time shingrix step 2 ( step 1 given 11/04/21) WITH needle - Nursing please administer upon arrival and once administered post a bridge message with date of administration, pharmacy sales representative, expiration date, and lot# so we can update [facility] 02/18/20 22 022 Inactive dispense with needle Shingrix (PF) 50 mcg/0.5 mL intramuscular suspension, kit RxNorm: 8597555 Administer 1/2 Milliliter(s) Intramuscular QD one time shingrix step 2 ( step 1 given 11/04/21) WITH needle - Nursing please administer upon arrival and once administered post a bridge message with date of administration, pharmacy sales representative, expiration date, and lot# so we can update [facility] 02/18/20 22 022 Inactive dispense with needle polyethylene glycol 3350 17 gram/dose oral powder RxNorm: 170462 Take 17=1 capful Gram(s) Oral QD mix with 4-8oz of liquid 01/08/20 22 025 Inactive take this in addition to BID prn order Lyrica 100 mg capsule RxNorm: 874324 Take 1 Capsule(s) Oral QAM every morning 01/08/20 22 022 Inactive d/c 50mg dose acetaminophen 500 mg tablet RxNorm: 103450 Take 1 Tablet(s) Oral TID 01/08/20 22 022 Inactive d/c PRN order Lyrica 150 mg capsule RxNorm: 502621 Take 1 Capsule(s) Oral QHS every night at bedtime 01/08/20 22 023 Inactive d/c 100mg dose Abilify 5 mg tablet RxNorm: 620302 Take 1 Tablet(s) Oral QD take 1 tab po QD #30 refill 5 dx: MDD 12/12/19 22 022 Inactive Abilify 5 mg tablet RxNorm: 937335 Take 1 Tablet(s) Oral QD take 1 tab po QD #30 refill 5 dx: MDD 12/12/19 22 022 Inactive Novolog Flexpen U-100 Insulin aspart 100 unit/mL (3 mL) subcutaneous RxNorm: 0306793 Inject 42 Unit(s) Subcutaneous TID in addition to sliding scale 12/10/19 22 022 Inactive d/c 36u chlorthalidone 25 mg tablet RxNorm: 165499 Take 1 Tablet(s) Oral QAM every morning 12/10/19 22 023 Inactive pregabalin 50 mg capsule RxNorm: 969010 Take 1 Capsule(s) Oral QAM every morning 11/12/19 22 022 Inactive tetanus-diphtheria toxoids-Td 2 Lf unit-2 Lf unit/0.5 mL IM suspension RxNorm: 139 Take 0.5 Miscellaneous Intramuscular 11/12/19 22 022 Inactive need tdap - nursing to administer upon arrival pregabalin 50 mg capsule RxNorm: 682599 Take 1 Capsule(s) Oral QAM every morning 10/16/19 022 Inactive pregabalin 50 mg capsule RxNorm: 035287 Take 1 Capsule(s) Oral QAM every morning 10/16/19 22 022 Inactive pregabalin 50 mg capsule RxNorm: 863760 1 Capsule(s) Oral QAM every morning 10/15/19 22 022 Inactive Shingrix (PF) 50 mcg/0.5 mL intramuscular suspension, kit RxNorm: 2281599 Administer 1/2 Milliliter(s) Intramuscular one time Nursing please administer upon arrival and once administered post a bridge message with date of administration, pharmacy sales representative, expiration date, and lot# so we can update [facility]. 10/09/19 22 022 Inactive shingrix step 1 Shingrix (PF) 50 mcg/0.5 mL intramuscular suspension, kit RxNorm: 4603002 Administer 1/2 Milliliter(s) Intramuscular one time Nursing please administer upon arrival and once administered post a bridge message with date of administration, pharmacy sales representative, expiration date, and lot# so [...] aspart 100 unit/mL (3 mL) subcutaneous RxNorm: 3671509 Inject 10 Unit(s) Subcutaneous QHS every night at bedtime with nighttime snack 10/08/19 22 Inactive Shingrix (PF) 50 mcg/0.5 mL intramuscular suspension, kit RxNorm: 0165125 ADMINISTER 2-DOSE SERIES PER CDC GUIDELINES 10/08/19 22 Active Shingrix (PF) 50 mcg/0.5 mL intramuscular suspension, kit RxNorm: 4741691 ADMINISTER 2-DOSE SERIES PER CDC GUIDELINES 10/08/19 22 Inactive Novolog Flexpen U-100 Insulin aspart 100 unit/mL (3 mL) subcutaneous RxNorm: 2621367 Inject 36 Unit(s) Subcutaneous TID in addition to sliding scale 10/08/19 22 Inactive cholecalciferol (vitamin D3) 1,250 mcg (50,000 unit) capsule RxNorm: 726591 Take 1 Capsule(s) Oral QW once a week 10/08/19 Inactive Novofine Autocover 30 gauge x 1/3 needle RxNorm: Use 1 Miscellaneous UD as directed Use 1 needle as directed to administer insulin 5 times a day Dx:E11.42. 10/03/19 Inactive ok to substitute with any covered alternative pen needle benzoyl peroxide 10 % topical cleanser RxNorm: 936721 Apply 1 Application Topical QD apply to face, wash rinse and dry once daily (may change to QOD if drying) 08/19/19 22 022 Inactive (%covered by insurance) #60ml refill 11 dx: acne benzoyl peroxide 10 % topical cleanser RxNorm: 971221 Apply 1 Application Topical QD apply to face, wash rinse and dry once daily (may change to QOD if drying) 08/19/19 22 022 Inactive (%covered by insurance) #60ml refill 11 dx: acne benzoyl peroxide 10 % topical cleanser RxNorm: 746116 Apply 1 Application Topical QD apply to face, wash rinse and dry once daily (may change to QOD if drying) 08/19/19 22 022 Inactive (%covered by insurance) #60ml refill 11 dx: acne Lyrica 50 mg capsule RxNorm: 395970 Take 1 Capsule(s) Oral QAM every morning Take 1 capsule by mouth once daily 08/19/19 22 022 Inactive benzoyl peroxide 10 % topical cleanser RxNorm: 216071 Apply 1 Application Topical QD apply to face, wash rinse and dry once daily (may change to QOD if drying) 08/19/19 22 022 Inactive (%covered by insurance) #60ml refill 11 dx: acne Lyrica 100 mg capsule RxNorm: 126692 Take 1 Capsule(s) Oral QHS every night at bedtime Take 1 capsule by mouth once daily at bedtime 08/19/19 22 Inactive Lyrica 100 mg capsule RxNorm: 636094 Take 1 Capsule(s) Oral QHS every night at bedtime Take 1 capsule by mouth once daily at bedtime 08/16/19 22 Inactive Lyrica 50 mg capsule RxNorm: 241693 Take 1 Capsule(s) Oral QAM every morning Take 1 capsule by mouth once daily 08/16/19 22 Inactive Levemir FlexTouch U-100 Insulin 100 unit/mL (3 mL) subcutaneous pen RxNorm: 908613 Inject 86 Unit(s) Subcutaneous BID 08/05/19 22 Inactive d/c 83units BID Lyrica 100 mg capsule RxNorm: 068022 Take 1 Capsule(s) Oral QHS every night at bedtime Take 1 capsule by mouth once daily at bedtime 07/14/19 22 022 Inactive Lyrica 50 mg capsule RxNorm: 482390 Take 1 Capsule(s) Oral QAM every morning Take 1 capsule by mouth once daily 07/14/19 22 Inactive Levemir FlexTouch U-100 Insulin 100 unit/mL (3 mL) subcutaneous pen RxNorm: 502133 Inject 83 Unit(s) Subcutaneous BID 07/08/19 22 [...] test strip hydralazine 50 mg tablet RxNorm: 198619 Take 1 Tablet(s) Oral QID 05/05/20 21 Inactive venlafaxine ER 225 mg tablet,extended release 24 hr RxNorm: 933779 Take 1 Tablet(s) Oral QD 05/05/20 21 Inactive venlafaxine ER 225 mg tablet,extended release 24 hr RxNorm: 073375 Take 1 Tablet(s) Oral QD 05/05/20 022 Inactive isosorbide mononitrate ER 30 mg tablet,extended release 24 hr RxNorm: 328870 Take 1 Tablet(s) Oral QD 05/05/20 024 Inactive hydralazine 50 mg tablet RxNorm: 977829 Take 1 Tablet(s) Oral QID 05/05/20 21 021 Inactive aspirin 81 mg tablet,delayed release RxNorm: 395697 Take 1 Tablet(s) Oral QD 03/31/20 Inactive Vitamin D2 1,250 mcg (50,000 unit) capsule RxNorm: 4301160 Take 1 Capsule(s) Oral QW once a week x 12 weeks 03/31/20 Inactive Vitamin D2 1,250 mcg (50,000 unit) capsule RxNorm: 3387080 Take 1 Capsule(s) Oral QW once a week 03/31/20 Inactive Zetia 10 mg tablet RxNorm: 910232 Take 1 Tablet(s) Oral QD 03/31/20 024 Inactive Zetia 10 mg tablet RxNorm: 141333 Take 1 Tablet(s) Oral QD 03/31/20 021 Inactive hydralazine 25 mg tablet RxNorm: 539510 Take 1 Tablet(s) Oral QID 03/31/20 21 021 Inactive hydralazine 25 mg tablet RxNorm: 109336 Take 1 Tablet(s) Oral QID 03/31/20 021 Inactive hydralazine 10 mg tablet RxNorm: 191190 Take 1 Tablet(s) Oral QID 03/03/20 21 021 Inactive cephalexin 500 mg tablet RxNorm: 406232 Take 1 Tablet(s) Oral QID 02/27/20 021 Inactive cephalexin 500 mg tablet RxNorm: 551322 Take 1 Tablet(s) Oral QID 02/27/20 21 021 Inactive lisinopril 40 mg tablet RxNorm: 233786 Take 1 Tablet(s) Oral QD 02/11/20 21 023 Inactive Eliquis 5 mg tablet RxNorm: 7252229 Take 1 Tablet(s) Oral BID 01/05/20 21 025 Inactive Eliquis 5 mg tablet RxNorm: 7652821 Take 2 Tablet(s) Oral QD 01/01/20 21 021 Inactive Lyrica 50 mg capsule RxNorm: 006876 Take 1 Capsule(s) Oral QAM every morning 12/24/19 21 021 Inactive Lyrica 100 mg capsule RxNorm: 941248 Take 1 Capsule(s) Oral QHS every night at bedtime 12/24/19 021 Inactive clotrimazole 1 % topical cream RxNorm: 548078 Apply to right foot and toes Topical BID 12/04/19 21 023 Inactive metoprolol succinate ER 200 mg tablet,extended release 24 hr RxNorm: 954204 Take 1 Tablet(s) Oral QD 12/04/19 21 023 Inactive ciprofloxacin 500 mg tablet RxNorm: 293978 Take 1 Tablet(s) Oral QD 11/30/19 21 021 Inactive DX ofloxacin otic drops Accu-Chek Guide test strips RxNorm: USE 1 TO CHECK GLUCOSE 4 TIMES DAILY AND NEEDED 11/15/19 21 023 Inactive Blood Glucose Test strips RxNorm: Use 1 Test Strip QID at PRN 11/05/19 21 023 Inactive E11.42 lisinopril 30 mg tablet RxNorm: 657026 Take 1 Tablet(s) Oral QD 10/30/19 021 Inactive lisinopril 20 mg tablet RxNorm: 257377 Take 1 Tablet(s) Oral QD 10/23/19 21 021 Inactive lisinopril 20 mg tablet RxNorm: 748874 Take 1 Tablet(s) Oral QD 10/23/19 21 021 Inactive lisinopril 10 mg tablet RxNorm: 912358 Take 1 Tablet(s) Oral QD 10/02/19 21 021 Inactive icosapent ethyl 1 gram capsule RxNorm: 2618694 Take 2 Capsule(s) (2 gm) Oral BID with meals 09/12/19 21 024 Inactive Okay to dispense one 2gm tab if you have that available. icosapent ethyl 1 gram capsule RxNorm: 0593375 Take 2 Capsule(s) Oral BID 09/12/19 21 021 Inactive Okay to dispense one 2gm tab if you have that available. amlodipine 10 mg tablet RxNorm: 442205 Take 1 Tablet(s) Oral QD 09/04/19 21 021 Inactive aspirin 81 mg tablet,delayed release RxNorm: 454505 Take 1 Tablet(s) Oral QD 09/04/19 21 021 Inactive Levemir FlexTouch U-100 Insulin 100 unit/mL (3 mL) subcutaneous pen RxNorm: 779874 Inject 150 Unit(s) Subcutaneous BID 09/04/19 21 022 Inactive venlafaxine ER 150 mg tablet,extended release 24 hr RxNorm: 953206 Take 1 Tablet(s) Oral QD 09/04/19 21 021 Inactive clotrimazole-betame thasone 1 %-0.05 % topical cream RxNorm: 780652 Apply to rash on red area on left abdomen/chest Topical BID 08/10/19 21 021 Inactive amlodipine 5 mg tablet RxNorm: 304490 Take 1 Tablet(s) Oral QD 07/31/19 21 021 Inactive cephalexin 500 mg tablet RxNorm: 840757 Take 1 Tablet(s) Oral BID BID - Twice Daily 07/31/19 21 021 Inactive Start 08/01/20 pantoprazole 40 mg tablet,delayed release RxNorm: 774984 Take 1 Tablet(s) Oral QAM every morning 07/08/19 21 025 Inactive senna 8.6 mg tablet RxNorm: 169750 Take 1 Tablet(s) Oral QD 07/08/19 21 025 Inactive carbamazepine 200 mg tablet RxNorm: 595358 Take 1 Tablet(s) Oral BID 07/08/19 21 025 Inactive clopidogrel 75 mg tablet RxNorm: 722566 Take 1 Tablet(s) Oral QD 07/08/19 021 Inactive Blood Glucose Test strips RxNorm: Use 1 Test Strip QID at PRN 07/08/19 21 021 Inactive E11.42 Novolog Flexpen U-100 Insulin aspart 100 unit/mL (3 mL) subcutaneous RxNorm: 1040564 Administer per sliding scale Milliliter(s) Subcutaneous TID 151-200: 10 u; 201-250: 20 u; 251-300: 30 u; 301-350: 40 u; 351-400: 50 u. 07/08/19 21 022 Inactive lisinopril 5 mg tablet RxNorm: 056104 Take 1 Tablet(s) Oral QD 07/08/19 021 Inactive Novolog Flexpen U-100 Insulin aspart 100 unit/mL (3 mL) subcutaneous RxNorm: 1354282 Inject 85 Unit(s) Subcutaneous TID 07/08/19 022 Inactive pravastatin 80 mg tablet RxNorm: 354236 Take 1 Tablet(s) Oral QHS every night at bedtime 07/08/19 023 Inactive clotrimazole 1 % topical cream RxNorm: 853022 Apply to bilateral groin areas Topical BID 07/08/19 21 022 Inactive metoprolol succinate ER 200 mg tablet,extended release 24 hr RxNorm: 220971 Take 1 Tablet(s) Oral QD 07/08/19 21 021 Inactive Vitamin D3 25 mcg (1,000 unit) tablet RxNorm: 970477 Take 1 Tablet(s) Oral QD 07/08/19 021 Inactive isosorbide dinitrate 30 mg tablet RxNorm: 692912 Take 1 Tablet(s) Oral QD 07/08/19 021 Inactive Levemir FlexTouch U-100 Insulin 100 unit/mL (3 mL) subcutaneous pen RxNorm: 019546 Inject 140 Unit(s) Subcutaneous BID 07/08/19 021 Inactive torsemide 20 mg tablet RxNorm: 261097 Take 1 Tablet(s) Oral QD 07/08/19 21 023 Inactive venlafaxine 75 mg tablet RxNorm: 788702 Take 1 Tablet(s) Oral QD 07/08/19 21 021 Inactive acetaminophen 500 mg tablet RxNorm: 900555 Take 1 Tablet(s) Oral TID as needed for headache 06/18/19 21 021 Inactive acetaminophen 500 mg tablet RxNorm: 600071 Take 1 Tablet(s) Oral TID as needed for headache 06/18/19 21 021 Inactive Lyrica 100 mg capsule RxNorm: 556853 Take 1 Capsule(s) Oral QHS every night at bedtime 06/11/19 21 021 Inactive Lyrica 50 mg capsule RxNorm: 851750 Take 1 Capsule(s) Oral QAM every morning 06/10/19 21 021 Inactive hydrocortisone 2.5 % topical cream RxNorm: 435209 Apply to bilateral groin creases Topical BID 05/15/20 20 021 Inactive clotrimazole 1 % topical cream RxNorm: 942603 Apply to bilateral groin areas Topical BID 05/15/20 20 021 Inactive Lyrica 50 mg capsule RxNorm: 008131 Take 1 Capsule(s) Oral QAM every morning 05/14/20 20 020 Inactive Lyrica 100 mg capsule RxNorm: 756571 Take 1 Capsule(s) Oral QHS every night [...] Inactive Nystop 100,000 unit/gram topical powder RxNorm: 678558 Apply to abd folds, under breasts and L side of groin Topical BID x 14 days, then BID PRN 04/08/20 20 Inactive dx: yeast dermatitis Lyrica 100 mg capsule RxNorm: 596115 Take 1 Capsule(s) Oral QHS every night at bedtime 03/13/20 20 Inactive Lyrica 50 mg capsule RxNorm: 456528 Take 1 Capsule(s) Oral QAM every morning 03/13/20 20 Inactive ketoconazole 2 % shampoo RxNorm: 642410 Apply Topical two times a week with showers 03/11/20 20 024 Inactive cholecalciferol (vitamin D3) 50 mcg (2,000 unit) tablet RxNorm: 164418 Take 1 Tablet(s) Oral QD 03/11/20 20 021 Inactive Zetia 10 mg tablet RxNorm: 351228 Take 1 Tablet(s) Oral QD 03/07/20 20 021 Inactive Zetia 10 mg tablet RxNorm: 824190 Take 1 Tablet(s) Oral QD 03/07/20 20 020 Inactive Lyrica 50 mg capsule RxNorm: 900478 Take 1 Capsule(s) Oral QAM every morning 02/15/20 20 020 Inactive Lyrica 100 mg capsule RxNorm: 892839 Take 1 Capsule(s) Oral QHS every night at bedtime 02/15/20 20 Inactive Lyrica 100 mg capsule RxNorm: 879783 Take 1 Capsule(s) Oral QHS every night at bedtime 02/15/20 20 020 Inactive Lyrica 50 mg capsule RxNorm: 070390 Take 1 Capsule(s) Oral QAM every morning 02/15/20 20 Inactive metoprolol succinate ER 200 mg tablet,extended release 24 hr RxNorm: 584895 Take 1 Tablet(s) Oral QD 08/12/19 23 025 Inactive loperamide 2 mg capsule RxNorm: 727796 Take 1 Capsule(s) Oral QID as needed 09/06/19 025 Inactive hydralazine 50 mg tablet RxNorm: 662349 Take 1 Tablet(s) Oral QID 08/12/19 025 Inactive Soft Touch Lancets RxNorm: miscellaneous 03/04/20 24 025 Inactive venlafaxine ER 75 mg capsule,extended release 24 hr RxNorm: 384949 Take 3 Capsule(s) Oral QD 06/12/19 22 023 Inactive polyethylene glycol 3350 17 gram/dose oral powder RxNorm: 539792 Take 17=1 capful Gram(s) Oral BID as needed mix with 4-8oz of liquid 06/12/19 024 Inactive icosapent ethyl 1 gram capsule RxNorm: 9004458 Take 2 Capsule(s) (2 gm) Oral BID with meals 10/07/19 23 023 Inactive Okay to dispense one 2gm tab if you have that available. Levemir FlexTouch U-100 Insulin 100 unit/mL (3 mL) subcutaneous pen RxNorm: 941727 Inject 80 Unit(s) Subcutaneous BID 07/14/19 023 Inactive Novolog Flexpen U-100 Insulin aspart 100 unit/mL (3 mL) subcutaneous RxNorm: 2071869 Insert 30 Unit(s) Subcutaneous TID with meals [...] Procedures Procedure Codes Date Toenail Debridement CPT-4: 69351 06/13/2024 SYS BP LESS 140 CPT-4: G8752 06/13/2024 CUI BP LESS 90 CPT-4: G8754 06/13/2024 Vital Signs Date Vital 06/13/2024 Blood Pressure 1: 120/60 Code: 8480-6 Heart Rate 1: 74 bpm Code: 8867-4 SpO2: 93% Temperature: 36.6 (C) / 97.9 (F) Functional Status Functional / Cognitive Codes [...] Performer Location Location Address Codes Cristiano e ([id number]) Home or Residence Vi sit Est Pt - Moderate Level, 40 mins Diagnosis: Hyperlipidemia associated with type 2 diabetes mellitus[ICD10: E11.69] Diagnosis: Hypertensive heart disease without heart failure[ICD10: I11.9] Diagnosis: Hypokalemia[ICD10: E87.6] Diagnosis: Stage 2 chronic 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[ICD10: E11.22] Diagnosis: Type 2 diabetes mellitus with diabetic polyneuropathy, with long-term current use of insulin[ICD10: E11.42] Diagnosis: Candidal intertrigo[ICD10: B37.2] Diagnosis: Hemorrhoids[ICD10: K64.9] Diagnosis: Onychogryposis[ICD10: L60.2]Harrison Stewart [place] on [id number] [place] [id number]-5: [id number] Plan of Care Planned Activity Notes Codes Status Date Referral: [facility] Radiology/Imaging WPtel: [address] [facility] USReferralAppointment Vaekzgnsy14/06/2025Referral: [facility]/Endocrinology WPtel: [address] [place], [place] [phone] USReferralNo Records Rdiwfzuq71/24/2025ppointment: Harrison Munson WPtel: [address] [facility] 300 [id number] [facility]02/08/2024ppointment: LowmanHarrison WPtel: [address] [place] [address] [id number] USF/U001/11/2024ppointment: Sandra Clark WPtel: [address] [place], [place] [phone] [facility] Psych Follow Up12/09/2022ppointment: Tapan Shirley WPtel: [address] [place] [address] 300 [id number] [facility]10/26/2022Referral: [facility] WPtel: [address], [address] [id number] USReferralRecords Fsomoqrg05/08/2023ppointment: Tapan Shirley WPtel: [address] [facility] 300 [id number] USF/U008/11/2022ppointment: Tapan Shirley WPtel: [address] [facility] [address] [id number] USF/07/14/2022ppointment: Tapan Shirley WPtel: [address] [facility] 300 [id number] USF/U02Referral: [facility] WPtel: [address] [facility] [address] [id number]/12/2022Referral: General CardiologyReferralCompleted 1Referral: General PsychologistReferralClosedReferral: General PsychiatristReferralPatient/Family [...] Sister Jyotsna involved in his care cell# [phone] Guardian: Giulia (tapan met in person 09/01/21), now has Lexii (same group as giulia)AWV 9.24.2023. Lab Schedule: /September*September (CBC with diff, CMP, [...] appointment 05.26.2024 with Jessa Webster MD at [facility]. Start Pioglitazone 15 mg QD. Stop Basaglar insulin. Increase Ozempic 2 mg once wkly. Continue Humalin R U-500 100 units with meals TID. FOLLOW UP 2 MONTHS. If BG >400 add 50 units to next scheduled dose of Humalin R U 500 insulin 06/12/2024 Hemorrhoids ColoRectal appointment next week.?? Discussed in HPI.?? Hypertensive heart disease without heart failure lab results: BMP Na 139. K 3.7. BUN 16.9. Creatinine 1.02. eGFR 82. Medication regimen: Multiple anti-hypertensives. Amlodipine 10 mg QD. Chlorthalidone 25 mg QD. Hydralazine 50 mg QID. Isosorbide mononitriate ER 60 mg QD. Metoprolol ER 200 mg QD. Potassium chloride ER 40 mEq BID. Torsemide 20 mg QD.?? Hypokalemia serum potassium 3.7.?? Continue current medication regimen including potassium supplementation.?? Hyperlipidemia associated with type 2 diabetes mellitus : Lipid panel TC 116. Trigs 575H. HDL 28L. LDL cannot calculate because trigs >400. nonHDL 88. Chronic hyperglycemia leading to further elevated triglycerides.?? 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 Education on healthy dietary intake provided although [facility] does not follow these recommendations and facility does not provide special dietary meals.?? Continue: Ezetimibe 10 mg PO QD. Rosuvastatin 40 mg PO QD. Vascepa 2 grams PO BID.?? Lipid panel to be followed up yearly.?? Stage 2 chronic 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 05.15.2024: BMP Na 139. K 3.7. BUN 16.9. Creatinine 1.02. eGFR 82.?? Monitor BMP every 3 months.?? Control BP as appropriate for age, risk for falls, and life expectancy. Avoid nephrotoxic medications. Renal dose medications as appropriate. Onychogryposis 6 toenails total trimmed today.?? Candidal intertrigo History of abdominal folds and groins. Currently of left breast fold. Nystatin powder is working well for him. Nursing shares he only allows some staff members to assist with administration of the Nystatin. No open skin present today. Personal hygiene education stressed.?? Continue nystatin powder and clotrimazole cream PRN.?? Type 2 diabetes mellitus with diabetic polyneuropathy, with long-term current use of insulin A1c reviewed from last Endocrinology appointment. (9.4%) Dr. Martines's office has discharged the patient unfortunately. See HPI for details.?? New referral placed for endocrinology at April visit. Visit note reviewed: Endocrinology appointment 05.26.2024 with Jessa Webster MD at [facility]. Start Pioglitazone 15 mg QD. Stop Basaglar insulin. ??Increase Ozempic 2 mg once wkly. Continue Humalin R U-500 100 units with meals TID. FOLLOW UP 2 MONTHS. If BG >400add 50 units to next scheduled dose of Humalin R U 500 insulin. 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 Continue medication regimen set forth by specialty team.?? PCP will defer diabetes management for specialist.??.06/13/2024
--- OUTSIDE RECORDS SUMMARY | 2024-10-19 18:30 | XMS_ITS | CCD ---
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 Manager Name Role Phone Arpit VIDALKeeganHarrison Primary Care Provider Leona vailable Unavailable Chronic Care Management Unavaila ble Summary Purpose DataExchange Insurance Providers Payer name Policy type / Coverage type Covered democrat ID Effective Begin Date Effective End Date [place] [id number] Unknown Unknown [place] Part B [id number] Unknown Unknown Family history Sister Brittany Suggs Diagnosis Age At Onset No Family Disease Entered N/A Runs in the family Diagnosis Age At Onset No Known Diseases N/A Sister Blanka Mcduffie Diagnosis Age At Onset No Family Disease Entered N/A Social History Social History Element Codes Description Effec tive Dates Tobacco history SNOMED CT: 426505272 Never smoker 01/16 Sexually Active? Unknown No [...] Living arrangements Unknown Long Term 09/03/[address]: 666115580 No Alcohol Consum ption 09/02/2020 Allergies, Adverse Reactions, Alerts Substance Reaction Codes Entered Date Inactivated Date Status * NO KNOWN FOOD ALLERGIES Spaxbpg5807/13/2023No Inactive DateActiveLISINOPRILRxNorm: 3427968No Inactive DateActiveMetformin ORbZywltbl72/28/2020No Inactive DateActive* NO KNOWN ENVIRONMENTAL VQTFFOELOEqvjlly81/27/2024No Inactive DateActive Problems Condition Codes Effective Dates [...] planning - to document end of life gjmflthghqqVualnpa73/24/2024ctiveAdvance care planningICD-10: Z71.89 ICD-9: V65.4909/ctiveAmputated toe of [...] E55.9 ICD-9: 268.909/ctiveCallus of heelICD-10: L84 ICD-9: 17780/esolvedGout due to renal impairmentICD-10: M10.30 ICD-9: 274.1005/esolvedHyperhidrosis of palmsICD-10: L74.512 ICD-9: 705.2105/esolvedHyperlipidemia, unspecifiedICD-10: E78.5 ICD-9: 272.405/esolvedOther technician terminal and repeater (current) drug therapyICD-10: Z79.899 ICD-9: V58.6905/esolvedPain of [...] tagICD-10: L91.8 ICD-9: 701.904/esolvedCoronary artery disease involving [place] coronary artery of [place] heart, angina presence unspecifiedICD-10: I25.10 ICD-9: 414.0102/4ActiveInappropriate sexual behaviorICD-10: Z72.89 ICD-9: 312.8910/ctivePre-op evaluationICD-10: Z01.818 ICD-9: V72.8403/ctiveSecondary hypertensionICD-10: I15.9 ICD-9: 405.9903/ctiveDepressionICD-10: F32.9 ICD-9: 29619/esolvedDVT (deep venous thrombosis)ICD-10: I82.409 ICD-9: 453.4009/esolvedEncounter for [...] to other viral communicable diseasesICD-10: Z20.828 ICD-9: V01.79021874MpotgprfQkkvpnicFwtnoyv46/28/2020ActiveDiabetes mellitus Type 8Tqinckd45/28/2020ActiveAnemia in chronic kidney diseaseICD-10: D63.1 02/12/2020ResolvedHyperlipidemia, unspecifiedICD-10: E78.Resolved Medications Medication Codes Instructions Start Date Stop Date Status Fill Instructions pregabalin 100 mg capsule RxNorm: 783660 Take 1 Capsule(s) Oral QAM every morning 03/20/20 024 Inactive cholecalciferol (vitamin D3) 1,250 mcg (50,000 unit) capsule RxNorm: 615341 Take 1 Capsule(s) Oral QW once a week 03/15/20 24 025 Active Pen Needle 30 gauge [...] Insulin 100 unit/mL (3 mL) subcutaneous RxNorm: 3245482 Inject 40 Unit(s) Subcutaneous BID 03/07/20 025 Inactive Please dispense one month supply. Humulin R U-500 (Concentrated) Insulin 500 unit/mL subcutaneous soln RxNorm: 514165 Inject 100 Unit(s) Subcutaneous AC before meals [...] PRN) to be use with new Accu [place] meter 03/04/20 Inactive ok to substitute with any covered alternative test strip FreeStyle Chema 2 Sensor kit RxNorm: Use UD as directed 03/02/20 025 Inactive FreeStyle Chema 2 Sensor kit RxNorm: Use UD as directed 03/02/20 Inactive Pen Needle 30 gauge x 5/16 RxNorm: Pen(s) Use 1 needle as directed TID 03/02/20 24 024 Inactive nystatin 100,000 unit/gram topical powder RxNorm: 482078 Apply 1 Application Topical BID as needed abdominal/breast /groin folds 03/02/20 24 024 Inactive Accu-Chek Guide test [...] (Concentrated) Insulin 500 unit/mL subcutaneous soln RxNorm: 416036 Inject 100 Unit(s) Subcutaneous TID 02/17/20 24 024 Inactive Humulin R U-500 (Concentrated) Insulin 500 unit/mL subcutaneous soln RxNorm: 077267 Inject 100 Unit(s) Subcutaneous TID 02/10/20 24 024 Inactive Basaglar KwikPen U-100 Insulin 100 unit/mL (3 mL) subcutaneous RxNorm: 4447303 Inject 30 Unit(s) Subcutaneous BID 02/10/20 24 024 Inactive Please dispense one month supply. pregabalin 100 mg capsule RxNorm: 708457 Take 1 Capsule(s) Oral QAM every morning 02/07/20 24 024 Inactive isosorbide mononitrate ER 60 mg tablet,extended release 24 hr RxNorm: 832238 Take 1 Tablet(s) Oral QD 02/01/20 24 025 Active aripiprazole 15 mg tablet RxNorm: 368846 Take 1/2 Tablet(s) Oral QD 02/01/20 24 025 Active torsemide 20 mg tablet RxNorm: 793210 1 TAB ORALLY DAILY (DX: EDEMA) 01/27/20 24 No Stop Date Active potassium chloride ER 20 mEq tablet,extended release(part/cryst) RxNorm: 5443303 2 TABS (40MEQ) ORALLY TWICE DAILY (DX: HYPOKALEMIA) 01/27/20 24 Inactive cephalexin 500 mg capsule RxNorm: 662398 Take 1 Capsule(s) Oral QID 12/17/19 24 Inactive cephalexin 500 mg capsule RxNorm: 928746 Take 1 Capsule(s) Oral QID 12/17/19 24 Inactive acetaminophen 500 mg tablet RxNorm: 894643 (MAX APAP:4GM/24HR) Take 1 Tablet(s) Oral TID as needed for pain 12/10/19 24 Inactive torsemide 20 mg tablet RxNorm: 861038 Take 1 Tablet(s) Oral QD 10/26/19 24 Inactive potassium chloride ER 20 mEq tablet,extended release RxNorm: 19800522 Take 2 Tablet(s) Oral BID 10/26/19 24 Inactive torsemide 20 mg tablet RxNorm: 753565 Take 1 Tablet(s) Oral QD 10/26/19 24 Inactive potassium chloride ER 20 mEq tablet,extended release RxNorm: 19800522 Take 2 Tablet(s) Oral BID 10/26/19 24 Inactive Artificial Tears (PF) 0.1 %-0.3 % drops in a dropperette RxNorm: 055833 Apply 1-2 Drop(s) Both eyes BID as needed 09/28/19 24 025 Inactive erythromycin 5 mg/gram (0.5 %) eye ointment RxNorm: 855310 Apply 1 Application Both eyes QHS every night at bedtime Instill ~1 cm ribbon into affected eye 09/28/19 24 Inactive Artificial Tears (PF) 0.1 %-0.3 % drops in a dropperette RxNorm: 512456 Apply 1-2 Drop(s) Both eyes BID as needed 09/28/19 24 Inactive erythromycin 5 mg/gram (0.5 %) eye ointment RxNorm: 439252 Apply 1 Application Both eyes QHS every night at bedtime Instill ~1 cm ribbon into affected eye 09/28/19 24 024 Inactive acetaminophen 500 mg tablet RxNorm: 236712 (MAX APAP:4GM/24HR) Take 1 Tablet(s) Oral TID as needed for pain 09/24/19 24 024 Inactive carvedilol 25 mg tablet RxNorm: 271937 Take 1 Tablet(s) Oral QD 09/08/19 24 No Stop Date Active pregabalin 100 mg capsule RxNorm: 087987 Take 1 Capsule(s) Oral QAM every morning 09/07/19 24 024 Inactive rosuvastatin 40 mg tablet RxNorm: 125622 Take 1 Tablet(s) Oral QPM every evening 07/13/19 24 024 Inactive ezetimibe 10 mg tablet RxNorm: 358792 Take 1 Tablet(s) Oral QD 07/13/19 24 025 Inactive bisacodyl 10 mg rectal suppository RxNorm: 820616 Insert 1 Suppository Rectal QD as needed 07/13/19 24 No Stop Date Active polyethylene glycol 3350 17 gram/dose oral powder RxNorm: 678538 Take 17 Gram(s) Oral BID as needed mix in 4-8ox water 07/13/19 24 025 Inactive ketoconazole 2 % shampoo RxNorm: 673583 Apply 1 Application Topical UD as directed 07/13/19 No Stop Date Active Ozempic 1 mg/dose (4 mg/3 mL) subcutaneous pen injector RxNorm: 6216322 Inject 1 Milligram(s) Subcutaneous QW once a week 07/13/19 24 No Stop Date Active Guaifenesin AC 10 mg-100 mg/5 mL oral liquid RxNorm: 132071 Take 10 Milliliter(s) Oral Q4H every four hours as needed 07/13/19 24 No Stop Date Active ammonium lactate 12 % topical cream RxNorm: 650777 Apply 1 Application Topical BID 07/13/19 24 025 Inactive hydrocortisone 2.5 % topical cream RxNorm: 484189 Apply 1 Application Topical BID as needed 07/13/19 24 No Stop Date Active rosuvastatin 20 mg sprinkle capsule RxNorm: 7765715 Take 1 Capsule(s) Oral QD 07/13/19 24 025 Inactive Vascepa 1 gram capsule RxNorm: 5747163 Take 2 Capsule(s) Oral BID 07/13/19 24 024 Inactive venlafaxine ER 75 mg capsule,extended release 24 hr RxNorm: 901807 Take 3 Capsule(s) Oral QD 07/13/19 24 024 Inactive aripiprazole 15 mg tablet RxNorm: 537636 Take 1/2 Tablet(s) Oral QD 07/13/19 24 024 Inactive isosorbide mononitrate ER 60 mg tablet,extended release 24 hr RxNorm: 522295 Take 1 Tablet(s) Oral QD 07/13/19 24 024 Inactive Basaglar KwikPen U-100 Insulin 100 unit/mL (3 mL) subcutaneous RxNorm: 5066689 Inject 30U SubQ twice daily 07/07/19 24 024 Inactive Please dispense one month supply. Basaglar KwikPen U-100 Insulin 100 unit/mL (3 mL) subcutaneous RxNorm: 2259256 Inject 30U SubQ twice daily 07/07/19 24 024 Inactive Please dispense one month supply. pregabalin 150 mg capsule RxNorm: 731263 Take 1 Capsule(s) Oral QHS every night at bedtime 07/05/19 24 024 Inactive pregabalin 150 mg capsule RxNorm: 741533 Take 1 Capsule(s) Oral QHS every night at bedtime 07/05/19 24 024 Inactive polyethylene glycol 3350 17 gram/dose oral powder RxNorm: 317604 Take 1 Packet Oral QD as needed (1 packet = 17g) mix with 4-8oz of liquid 06/15/19 24 024 Inactive bisacodyl 10 mg rectal suppository RxNorm: 057268 Insert one suppository per rectum once daily as needed for constipation 06/15/19 24 024 Inactive bisacodyl 10 mg rectal suppository RxNorm: 613373 Insert one suppository per rectum once daily as needed for constipation 06/15/19 24 024 Inactive pregabalin 100 mg capsule RxNorm: 823413 Take 1 Capsule(s) Oral QAM every morning 04/27/20 23 024 Inactive Levemir FlexPen 100 unit/mL (3 mL) solution subcutaneous insulin pen RxNorm: 342669 Inject 30 Unit(s) Subcutaneous BID 04/27/20 024 Inactive rosuvastatin 40 mg tablet RxNorm: 490127 Take 1 Tablet(s) Oral QPM every evening 04/16/20 024 Inactive D/C rosuvastatin 20mg venlafaxine ER 75 mg capsule,extended release 24 hr RxNorm: 368506 Take 3 Capsule(s) Oral QD 04/14/20 023 Inactive pregabalin 100 mg capsule RxNorm: 580993 Take 1 Capsule(s) Oral QAM every morning [...] strip clotrimazole 1 % topical cream RxNorm: 288853 Take apply topically to abdominal folds twice daily for 14 days 03/12/20 024 Inactive Ozempic 1 mg/dose (4 mg/3 mL) subcutaneous pen injector RxNorm: 8675728 Inject 1 Milligram(s) Subcutaneous QW once a week 03/11/20 023 Inactive rosuvastatin 20 mg tablet RxNorm: 509977 Take 1 Tablet(s) Oral QD 02/26/20 023 Inactive d/c pravastatin 80mg Ozempic 1 mg/dose (4 mg/3 mL) subcutaneous pen injector RxNorm: 5771869 Inject 1 Milligram(s) Subcutaneous QW once a week 02/20/20 23 023 Inactive pregabalin 150 mg capsule RxNorm: 468270 Take 1 Capsule(s) Oral HS at bed time 02/19/20 23 023 Inactive pregabalin 100 mg capsule RxNorm: 299016 Take 1 Capsule(s) Oral QAM every morning 02/18/20 23 023 Inactive venlafaxine ER 75 mg capsule,extended release 24 hr RxNorm: 034247 Take 3 Capsule(s) Oral QD 02/04/20 23 023 Inactive FreeStyle Chema 2 Sensor kit RxNorm: use as directed 02/04/20 23 023 Inactive FreeStyle Chema 2 Sensor kit RxNorm: use as directed 02/04/20 23 024 Inactive fluconazole 150 mg tablet RxNorm: 120947 Take 1 Tablet(s) Oral on day 3 and on day 6 02/03/20 024 Inactive chlorthalidone 25 mg tablet RxNorm: 122388 Take 1 Tablet(s) Oral QAM every morning 02/03/20 23 024 Inactive venlafaxine ER 150 mg capsule,extended release 24 hr RxNorm: 964168 Take 1 Capsule(s) Oral QD 02/03/20 23 023 Inactive acetaminophen 500 mg tablet RxNorm: 255550 1 TABLET ORALLY 3 TIMES DAILY (MAX APAP:4GM/24HR) 12/15/19 23 023 Inactive clotrimazole 1 % topical cream RxNorm: 960368 apply 1g topically to top of feet and in between toes BID 12/09/19 23 025 Inactive potassium chloride ER 20 mEq tablet,extended release RxNorm: 374444 Take 1 Tablet(s) Oral BID 12/09/19 23 024 Inactive d/c 20mEq once daily (sent from hospital) nystatin 100,000 unit/gram topical powder RxNorm: 817309 APPLY TO AFFECTED AREAS TOPICALLY 2 TIMES DAILY 11/21/19 23 023 Inactive Nystop 100,000 unit/gram topical powder RxNorm: 869726 Apply to abd folds, under breasts and L side of groin Topical BID x 14 days, then BID PRN 11/20/19 23 023 Inactive dx: yeast dermatitis [place] Ultra Strength 4 %-30 %-10 % topical cream RxNorm: 871240 Apply 1 Gram(s) Topical QID PRN to feet and legs for neuropathic pain 11/11/19 024 Inactive clotrimazole 1 % topical cream RxNorm: 366379 Apply 1/2 Gram(s) Topical BID Apply to affected areas of groin, periarea, and abdominal topically 2 times daily 11/10/19 023 Inactive hydrocortisone 2.5 % topical cream RxNorm: 450464 Apply 1/2 Gram(s) Topical BID as needed 11/10/19 024 Inactive Levemir FlexPen 100 unit/mL (3 mL) solution subcutaneous insulin pen RxNorm: 933844 Inject 30 Unit(s) Subcutaneous BID 10/07/19 023 Inactive Humulin R U-500 (Concentrated) Insulin 500 unit/mL subcutaneous soln RxNorm: 959382 Inject 100 Unit(s) Subcutaneous TID 10/07/19 024 Inactive Ozempic 0.25 mg or 0.5 mg (2 mg/3 mL) subcutaneous pen injector RxNorm: 7695756 Inject 1/2 Milligram(s) Subcutaneous QW once a week 10/07/19 024 Inactive aripiprazole 15 mg tablet RxNorm: 800473 1/2 TAB (7.5MG) ORALLY DAILY (DX:MAJOR DEPRESSIVE DISORDER) 09/23/19 23 023 Inactive Accu-Chek Guide test strips RxNorm: Use 1 Test Strip QID 09/15/19 23 023 Inactive ok to substitute with any covered alternative test strip Lancets,Thin 28 gauge RxNorm: Use 1 as directed QID 09/15/19 23 023 Inactive torsemide 20 mg tablet RxNorm: 187201 Take 1 Tablet(s) Oral BID 09/09/19 23 024 Inactive d/c once daily dosing carvedilol 25 mg tablet RxNorm: 080875 Take 1 Tablet(s) Oral QD 08/25/19 23 024 Inactive pregabalin 150 mg capsule RxNorm: 852634 1 Capsule(s) Oral HS at bed time 08/18/19 23 023 Inactive pregabalin 100 mg capsule RxNorm: 164550 1 Capsule(s) Oral QAM every morning 08/18/19 23 023 Inactive carvedilol 25 mg tablet RxNorm: 480186 1 Tablet(s) Oral QD 07/28/19 23 023 Inactive lisinopril 20 mg tablet RxNorm: 160241 Give 1 Tablet(s) Oral QD 07/28/19 23 023 Inactive Lyrica 150 mg capsule RxNorm: 141136 Take 1 Capsule(s) Oral QHS every night at bedtime 07/19/19 23 023 Inactive d/c 100mg dose Diflucan 150 mg tablet RxNorm: 044288 Take 1 Tablet(s) Oral QD repeat on day 3 and 6 07/19/19 023 Inactive pregabalin 100 mg capsule RxNorm: 144800 Take 1 Capsule(s) Oral QAM every morning 07/19/19 023 Inactive gatifloxacin 0.5 % eye drops RxNorm: 238691 Instill 1 Drop(s) as directed TID Instill 1 drop in to affected eye(s) starting 1 day prior to surgery and continue until gone (do not exceed 4 weeks). 07/13/19 23 023 Inactive carvedilol 25 mg tablet RxNorm: 768975 2 Tablet(s) Oral BID 07/13/19 023 Inactive Humulin R Regular U-100 Insulin 100 unit/mL injection solution RxNorm: 493106 85 Unit(s) Injection TID 07/13/19 23 023 Inactive ketorolac 0.5 % eye drops RxNorm: 196536 Instill 1 Drop(s) as directed QID Instill 1 drop into affected eye(s) 4 times daily starting 1 day prior to surgery and continue until gone (do not exceed 4 weeks). 07/13/19 23 023 Inactive Diflucan 150 mg tablet RxNorm: 674100 Take 1 Tablet(s) Oral QD repeat on day 3 and 6 06/30/19 23 023 Inactive Accu-Chek Guide test strips RxNorm: Use 1 Test Strip QID Use 1 test strip to monitor blood glucose 4 times daily and as needed. Dx:E11.42. 06/23/19 023 Inactive ok to substitute with any covered alternative test strip dextromethorphan-gu aifenesin 10 mg-100 mg/5 mL oral liquid RxNorm: 712420 Take 10 Milliliter(s) Oral every 4 hours as needed for cough 06/19/19 023 Inactive dextromethorphan-gu aifenesin 10 mg-100 mg/5 mL oral liquid RxNorm: 429838 Take 10 Milliliter(s) Oral every 4 hours as needed for cough 06/19/19 023 Inactive Lyrica 150 mg capsule RxNorm: 236188 Take 1 Capsule(s) Oral QHS every night at bedtime 06/18/19 023 Inactive d/c 100mg dose aripiprazole 15 mg tablet RxNorm: 192245 /2 TAB (7.5MG) ORALLY DAILY (DX:MAJOR DEPRESSIVE DISORDER) 06/05/19 023 Inactive pregabalin 100 mg capsule RxNorm: 442019 1 Capsule(s) Oral QAM every morning 06/02/19 023 Inactive Banophen 50 mg capsule RxNorm: 4849996 Take 1 Capsule(s) Oral Q6H every 6 hours as needed 05/19/19 23 No Stop Date Active Novolog Flexpen U-100 Insulin aspart 100 unit/mL (3 mL) subcutaneous RxNorm: 6614579 Inject 10 Unit(s) Subcutaneous QHS every night at bedtime with nighttime snack 04/08/20 022 Inactive Novolog Flexpen U-100 Insulin aspart 100 unit/mL (3 mL) subcutaneous RxNorm: 2947296 Inject 42 Unit(s) Subcutaneous TID in addition to sliding scale 04/08/20 022 Inactive d/c 36u albuterol sulfate HFA 90 mcg/actuation aerosol inhaler RxNorm: 8150003 Take 2 Puff(s) Inhalation Q4H every four hours as needed as needed for SOB, cough, or wheezing 04/07/20 22 030 Active Banophen 50 mg capsule RxNorm: 2435253 Take 1 Capsule(s) Oral Q6H every 6 hours as needed 04/06/20 023 Inactive diphenhydramine 50 mg tablet RxNorm: 8707904 Take 1 Tablet(s) Oral Q6H every 6 hours as needed 04/06/20 22 022 Inactive diphenhydramine 50 mg tablet RxNorm: 4862727 1 Tablet(s) Oral Q6H every 6 hours as needed 04/06/20 22 022 Inactive Abilify 15 mg tablet RxNorm: 629340 1/2 Tablet(s) Oral QD 03/10/20 023 Inactive Shingrix (PF) 50 mcg/0.5 mL intramuscular suspension, kit RxNorm: 8471418 Administer 1/2 Milliliter(s) Intramuscular QD one time shingrix step 2 ( step 1 given 11/04/21) WITH needle - Nursing please administer upon arrival and once administered post a bridge message with date of administration, sales and service representative, expiration date, and lot# so we can update [facility] 02/18/20 22 022 Inactive dispense with needle Shingrix (PF) 50 mcg/0.5 mL intramuscular suspension, kit RxNorm: 9188833 Administer 1/2 Milliliter(s) Intramuscular QD one time shingrix step 2 ( step 1 given 11/04/21) WITH needle - Nursing please administer upon arrival and once administered post a bridge message with date of administration, sales and service representative, expiration date, and lot# so we can update [facility] 02/18/20 22 022 Inactive dispense with needle polyethylene glycol 3350 17 gram/dose oral powder RxNorm: 544501 Take 17=1 capful Gram(s) Oral QD mix with 4-8oz of liquid 01/08/20 22 025 Inactive take this in addition to BID prn order Lyrica 100 mg capsule RxNorm: 550952 Take 1 Capsule(s) Oral QAM every morning 01/08/20 22 022 Inactive d/c 50mg dose acetaminophen 500 mg tablet RxNorm: 312427 Take 1 Tablet(s) Oral TID 01/08/20 22 022 Inactive d/c PRN order Lyrica 150 mg capsule RxNorm: 163420 Take 1 Capsule(s) Oral QHS every night at bedtime 01/08/20 22 023 Inactive d/c 100mg dose Abilify 5 mg tablet RxNorm: 395665 Take 1 Tablet(s) Oral QD take 1 tab po QD #30 refill 5 dx: MDD 12/12/19 22 022 Inactive Abilify 5 mg tablet RxNorm: 306952 Take 1 Tablet(s) Oral QD take 1 tab po QD #30 refill 5 dx: MDD 12/12/19 22 022 Inactive Novolog Flexpen U-100 Insulin aspart 100 unit/mL (3 mL) subcutaneous RxNorm: 1837007 Inject 42 Unit(s) Subcutaneous TID in addition to sliding scale 12/10/19 22 022 Inactive d/c 36u chlorthalidone 25 mg tablet RxNorm: 412652 Take 1 Tablet(s) Oral QAM every morning 12/10/19 22 023 Inactive pregabalin 50 mg capsule RxNorm: 954833 Take 1 Capsule(s) Oral QAM every morning 11/12/19 22 022 Inactive tetanus-diphtheria toxoids-Td 2 Lf unit-2 Lf unit/0.5 mL IM suspension RxNorm: 139 Take 0.5 Miscellaneous Intramuscular 11/12/19 22 022 Inactive need tdap - nursing to administer upon arrival pregabalin 50 mg capsule RxNorm: 048409 Take 1 Capsule(s) Oral QAM every morning 10/16/19 22 022 Inactive pregabalin 50 mg capsule RxNorm: 717865 Take 1 Capsule(s) Oral QAM every morning 10/16/19 22 022 Inactive pregabalin 50 mg capsule RxNorm: 450588 1 Capsule(s) Oral QAM every morning 10/15/19 22 022 Inactive Shingrix (PF) 50 mcg/0.5 mL intramuscular suspension, kit RxNorm: 7441936 Administer 1/2 Milliliter(s) Intramuscular one time Nursing please administer upon arrival and once administered post a bridge message with date of administration, sales and service representative, expiration date, and lot# so we can update [facility]. 10/09/19 22 022 Inactive shingrix step 1 Shingrix (PF) 50 mcg/0.5 mL intramuscular suspension, kit RxNorm: 3467461 Administer 1/2 Milliliter(s) Intramuscular one time Nursing please administer upon arrival and once administered post a bridge message with date of administration, sales and service representative, expiration date, and lot# so we [...] aspart 100 unit/mL (3 mL) subcutaneous RxNorm: 1602619 Inject 10 Unit(s) Subcutaneous QHS every night at bedtime with nighttime snack 10/08/19 22 022 Inactive Shingrix (PF) 50 mcg/0.5 mL intramuscular suspension, kit RxNorm: 2436688 ADMINISTER 2-DOSE SERIES PER CDC GUIDELINES 10/08/19 22 022 Active Shingrix (PF) 50 mcg/0.5 mL intramuscular suspension, kit RxNorm: 9438264 ADMINISTER 2-DOSE SERIES PER CDC GUIDELINES 10/08/19 22 022 Inactive Novolog Flexpen U-100 Insulin aspart 100 unit/mL (3 mL) subcutaneous RxNorm: 4242755 Inject 36 Unit(s) Subcutaneous TID in addition to sliding scale 10/08/19 22 022 Inactive cholecalciferol (vitamin D3) 1,250 mcg (50,000 unit) capsule RxNorm: 322684 Take 1 Capsule(s) Oral QW once a week 10/08/19 22 024 Inactive Novofine Autocover 30 gauge x 1/3 needle RxNorm: Use 1 Miscellaneous UD as directed Use 1 needle as directed to administer insulin 5 times a day Dx:E11.42. 10/03/19 22 Inactive ok to substitute with any covered alternative pen needle benzoyl peroxide 10 % topical cleanser RxNorm: 978627 Apply 1 Application Topical QD apply to face, wash rinse and dry once daily (may change to QOD if drying) 08/19/19 22 022 Inactive (%covered by insurance) #60ml refill 11 dx: acne benzoyl peroxide 10 % topical cleanser RxNorm: 137272 Apply 1 Application Topical QD apply to face, wash rinse and dry once daily (may change to QOD if drying) 08/19/19 22 022 Inactive (%covered by insurance) #60ml refill 11 dx: acne benzoyl peroxide 10 % topical cleanser RxNorm: 923357 Apply 1 Application Topical QD apply to face, wash rinse and dry once daily (may change to QOD if drying) 08/19/19 022 Inactive (%covered by insurance) #60ml refill 11 dx: acne Lyrica 50 mg capsule RxNorm: 538572 Take 1 Capsule(s) Oral QAM every morning Take 1 capsule by mouth once daily 08/19/19 22 Inactive benzoyl peroxide 10 % topical cleanser RxNorm: 434132 Apply 1 Application Topical QD apply to face, wash rinse and dry once daily (may change to QOD if drying) 08/19/19 22 022 Inactive (%covered by insurance) #60ml refill 11 dx: acne Lyrica 100 mg capsule RxNorm: 400654 Take 1 Capsule(s) Oral QHS every night at bedtime Take 1 capsule by mouth once daily at bedtime 08/19/19 22 022 Inactive Lyrica 100 mg capsule RxNorm: 549235 Take 1 Capsule(s) Oral QHS every night at bedtime Take 1 capsule by mouth once daily at bedtime 08/16/19 22 022 Inactive Lyrica 50 mg capsule RxNorm: 554805 Take 1 Capsule(s) Oral QAM every morning Take 1 capsule by mouth once daily 08/16/19 22 Inactive Levemir FlexTouch U-100 Insulin 100 unit/mL (3 mL) subcutaneous pen RxNorm: 147591 Inject 86 Unit(s) Subcutaneous BID 08/05/19 22 022 Inactive d/c 83units BID Lyrica 100 mg capsule RxNorm: 741722 Take 1 Capsule(s) Oral QHS every night at bedtime Take 1 capsule by mouth once daily at bedtime 07/14/19 22 022 Inactive Lyrica 50 mg capsule RxNorm: 456189 Take 1 Capsule(s) Oral QAM every morning Take 1 capsule by mouth once daily 07/14/19 22 022 Inactive Levemir FlexTouch U-100 Insulin 100 unit/mL (3 mL) subcutaneous pen RxNorm: 236934 Inject 83 Unit(s) Subcutaneous BID 07/08/19 22 [...] test strip hydralazine 50 mg tablet RxNorm: 854499 Take 1 Tablet(s) Oral QID 05/05/20 022 Inactive venlafaxine ER 225 mg tablet,extended release 24 hr RxNorm: 517158 Take 1 Tablet(s) Oral QD 05/05/20 021 Inactive venlafaxine ER 225 mg tablet,extended release 24 hr RxNorm: 865829 Take 1 Tablet(s) Oral QD 05/05/20 022 Inactive isosorbide mononitrate ER 30 mg tablet,extended release 24 hr RxNorm: 400783 Take 1 Tablet(s) Oral QD 05/05/20 024 Inactive hydralazine 50 mg tablet RxNorm: 794681 Take 1 Tablet(s) Oral QID 05/05/20 Inactive aspirin 81 mg tablet,delayed release RxNorm: 519895 Take 1 Tablet(s) Oral QD 03/31/20 022 Inactive Vitamin D2 1,250 mcg (50,000 unit) capsule RxNorm: 5611948 Take 1 Capsule(s) Oral QW once a week x 12 weeks 03/31/20 022 Inactive Vitamin D2 1,250 mcg (50,000 unit) capsule RxNorm: 9850500 Take 1 Capsule(s) Oral QW once a week 03/31/20 Inactive Zetia 10 mg tablet RxNorm: 086653 Take 1 Tablet(s) Oral QD 03/31/20 024 Inactive Zetia 10 mg tablet RxNorm: 248441 Take 1 Tablet(s) Oral QD 03/31/20 021 Inactive hydralazine 25 mg tablet RxNorm: 973665 Take 1 Tablet(s) Oral QID 03/31/20 021 Inactive hydralazine 25 mg tablet RxNorm: 333899 Take 1 Tablet(s) Oral QID 03/31/20 021 Inactive hydralazine 10 mg tablet RxNorm: 068554 Take 1 Tablet(s) Oral QID 03/03/20 021 Inactive cephalexin 500 mg tablet RxNorm: 020321 Take 1 Tablet(s) Oral QID 02/27/20 021 Inactive cephalexin 500 mg tablet RxNorm: 587649 Take 1 Tablet(s) Oral QID 02/27/20 021 Inactive lisinopril 40 mg tablet RxNorm: 723591 Take 1 Tablet(s) Oral QD 02/11/20 023 Inactive Eliquis 5 mg tablet RxNorm: 7658851 Take 1 Tablet(s) Oral BID 01/05/20 21 025 Inactive Eliquis 5 mg tablet RxNorm: 8025590 Take 2 Tablet(s) Oral QD 01/01/20 21 021 Inactive Lyrica 50 mg capsule RxNorm: 651482 Take 1 Capsule(s) Oral QAM every morning 12/24/19 21 021 Inactive Lyrica 100 mg capsule RxNorm: 334404 Take 1 Capsule(s) Oral QHS every night at bedtime 12/24/19 021 Inactive clotrimazole 1 % topical cream RxNorm: 739318 Apply to right foot and toes Topical BID 12/04/19 21 023 Inactive metoprolol succinate ER 200 mg tablet,extended release 24 hr RxNorm: 475478 Take 1 Tablet(s) Oral QD 12/04/19 21 023 Inactive ciprofloxacin 500 mg tablet RxNorm: 618965 Take 1 Tablet(s) Oral QD 11/30/19 21 021 Inactive DX ofloxacin otic drops Accu-Chek Guide test strips RxNorm: USE 1 TO CHECK GLUCOSE 4 TIMES DAILY AND NEEDED 11/15/19 21 023 Inactive Blood Glucose Test strips RxNorm: Use 1 Test Strip QID at PRN 11/05/19 21 023 Inactive E11.42 lisinopril 30 mg tablet RxNorm: 734479 Take 1 Tablet(s) Oral QD 10/30/19 21 021 Inactive lisinopril 20 mg tablet RxNorm: 139946 Take 1 Tablet(s) Oral QD 10/23/19 21 021 Inactive lisinopril 20 mg tablet RxNorm: 537455 Take 1 Tablet(s) Oral QD 10/23/19 21 021 Inactive lisinopril 10 mg tablet RxNorm: 096420 Take 1 Tablet(s) Oral QD 10/02/19 21 021 Inactive icosapent ethyl 1 gram capsule RxNorm: 4775102 Take 2 Capsule(s) (2 gm) Oral BID with meals 09/12/19 21 024 Inactive Okay to dispense one 2gm tab if you have that available. icosapent ethyl 1 gram capsule RxNorm: 8865721 Take 2 Capsule(s) Oral BID 09/12/19 21 021 Inactive Okay to dispense one 2gm tab if you have that available. amlodipine 10 mg tablet RxNorm: 376471 Take 1 Tablet(s) Oral QD 09/04/19 21 021 Inactive aspirin 81 mg tablet,delayed release RxNorm: 749447 Take 1 Tablet(s) Oral QD 09/04/19 21 021 Inactive Levemir FlexTouch U-100 Insulin 100 unit/mL (3 mL) subcutaneous pen RxNorm: 471498 Inject 150 Unit(s) Subcutaneous BID 09/04/19 21 022 Inactive venlafaxine ER 150 mg tablet,extended release 24 hr RxNorm: 072900 Take 1 Tablet(s) Oral QD 09/04/19 21 021 Inactive clotrimazole-betame thasone 1 %-0.05 % topical cream RxNorm: 026937 Apply to rash on red area on left abdomen/chest Topical BID 08/10/19 21 021 Inactive amlodipine 5 mg tablet RxNorm: 302755 Take 1 Tablet(s) Oral QD 07/31/19 21 021 Inactive cephalexin 500 mg tablet RxNorm: 223458 Take 1 Tablet(s) Oral BID BID - Twice Daily 07/31/19 21 021 Inactive Start 08/01/20 pantoprazole 40 mg tablet,delayed release RxNorm: 375527 Take 1 Tablet(s) Oral QAM every morning 07/08/19 025 Inactive senna 8.6 mg tablet RxNorm: 160863 Take 1 Tablet(s) Oral QD 07/08/19 025 Inactive carbamazepine 200 mg tablet RxNorm: 832257 Take 1 Tablet(s) Oral BID 07/08/19 025 Inactive clopidogrel 75 mg tablet RxNorm: 450474 Take 1 Tablet(s) Oral QD 07/08/19 021 Inactive Blood Glucose Test strips RxNorm: Use 1 Test Strip QID at PRN 07/08/19 21 Inactive E11.42 Novolog Flexpen U-100 Insulin aspart 100 unit/mL (3 mL) subcutaneous RxNorm: 3866524 Administer per sliding scale Milliliter(s) Subcutaneous TID 151-200: 10 u; 201-250: 20 u; 251-300: 30 u; 301-350: 40 u; 351-400: 50 u. 07/08/19 21 022 Inactive lisinopril 5 mg tablet RxNorm: 954096 Take 1 Tablet(s) Oral QD 07/08/19 021 Inactive Novolog Flexpen U-100 Insulin aspart 100 unit/mL (3 mL) subcutaneous RxNorm: 0040979 Inject 85 Unit(s) Subcutaneous TID 07/08/19 022 Inactive pravastatin 80 mg tablet RxNorm: 593717 Take 1 Tablet(s) Oral QHS every night at bedtime 07/08/19 023 Inactive clotrimazole 1 % topical cream RxNorm: 947399 Apply to bilateral groin areas Topical BID 07/08/19 21 022 Inactive metoprolol succinate ER 200 mg tablet,extended release 24 hr RxNorm: 803242 Take 1 Tablet(s) Oral QD 07/08/19 21 021 Inactive Vitamin D3 25 mcg (1,000 unit) tablet RxNorm: 980254 Take 1 Tablet(s) Oral QD 07/08/19 21 021 Inactive isosorbide dinitrate 30 mg tablet RxNorm: 189168 Take 1 Tablet(s) Oral QD 07/08/19 021 Inactive Levemir FlexTouch U-100 Insulin 100 unit/mL (3 mL) subcutaneous pen RxNorm: 106409 Inject 140 Unit(s) Subcutaneous BID 07/08/19 21 021 Inactive torsemide 20 mg tablet RxNorm: 327198 Take 1 Tablet(s) Oral QD 07/08/19 21 023 Inactive venlafaxine 75 mg tablet RxNorm: 964366 Take 1 Tablet(s) Oral QD 07/08/19 021 Inactive acetaminophen 500 mg tablet RxNorm: 494635 Take 1 Tablet(s) Oral TID as needed for headache 06/18/19 Inactive acetaminophen 500 mg tablet RxNorm: 147070 Take 1 Tablet(s) Oral TID as needed for headache 06/18/19 021 Inactive Lyrica 100 mg capsule RxNorm: 509723 Take 1 Capsule(s) Oral QHS every night at bedtime 06/11/19 021 Inactive Lyrica 50 mg capsule RxNorm: 556669 Take 1 Capsule(s) Oral QAM every morning 06/10/19 21 021 Inactive hydrocortisone 2.5 % topical cream RxNorm: 279089 Apply to bilateral groin creases Topical BID 05/15/20 20 021 Inactive clotrimazole 1 % topical cream RxNorm: 614295 Apply to bilateral groin areas Topical BID 05/15/20 20 021 Inactive Lyrica 50 mg capsule RxNorm: 266628 Take 1 Capsule(s) Oral QAM every morning 05/14/20 20 020 Inactive Lyrica 100 mg capsule RxNorm: 559240 Take 1 Capsule(s) Oral QHS every night [...] Inactive Nystop 100,000 unit/gram topical powder RxNorm: 601838 Apply to abd folds, under breasts and L side of groin Topical BID x 14 days, then BID PRN 04/08/20 20 Inactive dx: yeast dermatitis Lyrica 100 mg capsule RxNorm: 417299 Take 1 Capsule(s) Oral QHS every night at bedtime 03/13/20 20 Inactive Lyrica 50 mg capsule RxNorm: 757036 Take 1 Capsule(s) Oral QAM every morning 03/13/20 20 Inactive ketoconazole 2 % shampoo RxNorm: 893133 Apply Topical two times a week with showers 03/11/20 20 024 Inactive cholecalciferol (vitamin D3) 50 mcg (2,000 unit) tablet RxNorm: 242344 Take 1 Tablet(s) Oral QD 03/11/20 20 021 Inactive Zetia 10 mg tablet RxNorm: 009463 Take 1 Tablet(s) Oral QD 03/07/20 20 021 Inactive Zetia 10 mg tablet RxNorm: 956713 Take 1 Tablet(s) Oral QD 03/07/20 20 020 Inactive Lyrica 50 mg capsule RxNorm: 544951 Take 1 Capsule(s) Oral QAM every morning 02/15/20 20 Inactive Lyrica 100 mg capsule RxNorm: 142012 Take 1 Capsule(s) Oral QHS every night at bedtime 02/15/20 20 10/01/2 020 Inactive Lyrica 100 mg capsule RxNorm: 249396 Take 1 Capsule(s) Oral QHS every night at bedtime 02/15/20 020 Inactive Lyrica 50 mg capsule RxNorm: 981822 Take 1 Capsule(s) Oral QAM every morning 02/15/20 20 020 Inactive metoprolol succinate ER 200 mg tablet,extended release 24 hr RxNorm: 463837 Take 1 Tablet(s) Oral QD 08/12/19 025 Inactive loperamide 2 mg capsule RxNorm: 320017 Take 1 Capsule(s) Oral QID as needed 09/06/19 025 Inactive hydralazine 50 mg tablet RxNorm: 177255 Take 1 Tablet(s) Oral QID 08/12/19 025 Inactive Soft Touch Lancets RxNorm: miscellaneous 03/04/20 24 025 Inactive venlafaxine ER 75 mg capsule,extended release 24 hr RxNorm: 204689 Take 3 Capsule(s) Oral QD 06/12/19 023 Inactive polyethylene glycol 3350 17 gram/dose oral powder RxNorm: 959537 Take 17=1 capful Gram(s) Oral BID as needed mix with 4-8oz of liquid 06/12/19 024 Inactive icosapent ethyl 1 gram capsule RxNorm: 3502225 Take 2 Capsule(s) (2 gm) Oral BID with meals 10/07/19 23 023 Inactive Okay to dispense one 2gm tab if you have that available. Levemir FlexTouch U-100 Insulin 100 unit/mL (3 mL) subcutaneous pen RxNorm: 093968 Inject 80 Unit(s) Subcutaneous BID 07/14/19 23 023 Inactive Novolog Flexpen U-100 Insulin aspart 100 unit/mL (3 mL) subcutaneous RxNorm: 3872887 Insert 30 Unit(s) Subcutaneous TID with meals [...] Planned Activity Notes Codes Status Date Referral: [facility] [address] [id number] [place]ReferralAppointment [id number]/06/2025Referral: [facility]/Endocrinology WPtel: [address] [facility] 3 [id number] USReferralNo Records [id number]/24/2025Referral: [facility] WPtel: [address] [id number] [place]ReferralRecords [id number]/08/2023Referral: [facility] WPtel: [address] [id number]/12/2022Referral: General CardiologyReferralCompleted 1Referral: General PsychologistReferralClosedReferral: General PsychiatristReferralPatient/Family [...] Sister Jyotsna involved in his care cell# [phone] Guardian: Giulia (tapan met in person 09/01/21), [...] appointment 05.26.2024 with Jessa Webster MD at [facility]. Start Pioglitazone 15 mg QD. Stop Basaglar insulin. Increase Ozempic 2 mg once wkly. Continue Humalin R U-500 100 units with meals TID. FOLLOW UP 2 MONTHS. If BG >400 add 50 units to next scheduled dose of Humalin R U 500 insulin 06/12/2024
--- OUTSIDE RECORDS SUMMARY | 2024-10-19 18:31 | XMS_ITS | CCD ---
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 Cottage Supervisor Name Role Phone Arpit VIDALKeeganHarrison Primary Care Provider Leona vailable Unavailable Chronic Care Management Unavaila ble Summary Purpose DataExchange Insurance Providers Payer name Policy type / Coverage type Covered democrat ID Effective Begin Date Effective End Date [place] [id number] Unknown Unknown Medicaid [place] Medicare Part B [id number] Unknown Unknown Family history Sister Brittany Suggs Diagnosis Age At Onset No Family Disease Entered N/A Runs in the family Diagnosis Age At Onset No Known Diseases N/A Sister Blanka Mcduffie Diagnosis Age At Onset No Family Disease Entered N/A Social History Social History Element Codes Description Effec tive Dates Tobacco history SNOMED CT: 056013863 Never smoker 01/16 Sexually Active? Unknown No [...] Snf 09/03/19 [address]: 199120489 No Alcohol Consum ption 09/02/2020 Allergies, Adverse Reactions, Alerts Substance Reaction Codes Entered Date Inactivated Date Status * NO KNOWN FOOD ALLERGIES Rfqbvqh7707/13/2023No Inactive DateActiveLISINOPRILRxNorm: 5005568No Inactive DateActiveMetformin YQjFyhsvsr68/28/2020No Inactive DateActive* NO KNOWN ENVIRONMENTAL [id number]/27/2024No Inactive DateActive Problems Condition Codes Effective Dates Condition St atus Hemorrhoids ICD-10: K64.9 ICD-9: 455.611/ctiveHyperlipidemia associated with type 2 diabetes mellitusICD-10: E11.69 ICD-9: 250.8011ctiveHypertensive heart disease without heart failure ICD-10: I11.9 ICD-9: 402.9011/ctiveOnychogryposisICD-10: L60.2 ICD-9: 703.811ctiveStage 2 chronic 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ICD-10: E11.22 ICD-9: 250.4011/ctiveType 2 diabetes mellitus with diabetic polyneuropathy, with long-term current use of insulinICD-10: E11.42 ICD-9: 250.6011/ctiveBMI 60.0-69.9, adultICD-10: Z68.44 ICD-9: V85.4410ctiveDiabetic neuropathy associated with type 2 diabetes mellitusICD-10: E11.40 ICD-9: 250.6010ctiveLow back painICD-10: M54.50 ICD-9: 724.210ctiveParaparesis of both lower limbsICD-10: G82.20 ICD-9: 344.110ctivePhysical deconditioningICD-10: R53.81 ICD-9: 799.310/ctivePVD (peripheral vascular disease)ICD-10: I73.9 ICD-9: 443.910ctiveAdvanced care planning - to document end of life hffnnrooeftUfuzzmy14ctiveAdvance care planningICD-10: Z71.89 ICD-9: V65.4909ctiveAmputated toe of [...] E55.9 ICD-9: 268.909/ctiveCallus of heelICD-10: L84 ICD-9: 96540/esolvedGout due to renal impairmentICD-10: M10.30 ICD-9: 274.1005/esolvedHyperhidrosis of palmsICD-10: L74.512 ICD-9: 705.2105esolvedHyperlipidemia, unspecifiedICD-10: E78.5 ICD-9: 272.405/esolvedOther keno terminal operator (current) drug therapyICD-10: Z79.899 ICD-9: V58.6905/esolvedPain of [...] tagICD-10: L91.8 ICD-9: 701.904esolvedCoronary artery disease involving [place] coronary artery of [place] heart, angina presence unspecifiedICD-10: I25.10 ICD-9: 414.0102/ctiveInappropriate sexual behaviorICD-10: Z72.89 ICD-9: 312.8910/ctivePre-op evaluationICD-10: Z01.818 ICD-9: V72.8403/ctiveSecondary hypertensionICD-10: I15.9 ICD-9: 405.9903/ctiveDepressionICD-10: F32.9 ICD-9: 42748/esolvedDVT (deep venous thrombosis)ICD-10: I82.409 ICD-9: 453.4009/2ResolvedEncounter for [...] to other viral communicable diseasesICD-10: Z20.828 ICD-9: V01.7902/7355MzqopvkfBvtcziqbBvcdhua88/28/2020ActiveDiabetes mellitus Type 7Zvvkmee67/28/2020ActiveAnemia in chronic kidney diseaseICD-10: D63.1 02/12/2020ResolvedHyperlipidemia, unspecifiedICD-10: E78.509Resolved Medications Medication Codes Instructions Start Date Stop Date Status Fill Instructions nystatin 100,000 unit/gram topical powder RxNorm: 356389 Apply 1 Application Topical BID as needed abdominal/breast /groin folds 04/11/20 24 024 Inactive chlorthalidone 25 mg tablet RxNorm: 797164 Take 1 Tablet(s) Oral QAM every morning 04/06/20 24 No Stop Date Active pregabalin 150 mg capsule RxNorm: 718005 Take 1 Capsule(s) Oral QHS every night at bedtime 03/31/20 Inactive Vascepa 1 gram capsule RxNorm: 8310034 Take 2 Capsule(s) Oral BID 03/30/20 Active rosuvastatin 40 mg tablet RxNorm: 408854 1 TAB ORALLY EVERY EVENING (DX:CORONARY ARTERY DISEASE) 03/28/20 No Stop Date Active venlafaxine ER 75 mg capsule,extended release 24 hr RxNorm: 408999 3 CAPS (225MG) ORALLY DAILY (DX: MOOD DISORDER) 03/28/20 No Stop Date Active pregabalin 100 mg capsule RxNorm: 453187 Take 1 Capsule(s) Oral QAM every morning 03/20/20 Inactive cholecalciferol (vitamin D3) 1,250 mcg (50,000 unit) capsule RxNorm: 935807 Take 1 Capsule(s) Oral QW once a [...] Insulin 100 unit/mL (3 mL) subcutaneous RxNorm: 8250402 Inject 40 Unit(s) Subcutaneous BID 03/07/20 025 Inactive Please dispense one month supply. Humulin R U-500 (Concentrated) Insulin 500 unit/mL subcutaneous soln RxNorm: 575841 Inject 100 Unit(s) Subcutaneous AC before meals [...] PRN) to be use with new Accu Eagle meter 03/04/20 024 Inactive ok to substitute with any covered alternative test strip FreeStyle Chema 2 Sensor kit RxNorm: Use UD as directed 03/02/20 025 Inactive FreeStyle Chema 2 Sensor kit RxNorm: Use UD as directed 03/02/20 Inactive Pen Needle 30 gauge x 09/29 RxNorm: Pen(s) Use 1 needle as directed TID 03/02/20 Inactive nystatin 100,000 unit/gram topical powder RxNorm: 405772 Apply 1 Application Topical BID as needed [...] (Concentrated) Insulin 500 unit/mL subcutaneous soln RxNorm: 565875 Inject 100 Unit(s) Subcutaneous TID 02/17/20 024 Inactive Humulin R U-500 (Concentrated) Insulin 500 unit/mL subcutaneous soln RxNorm: 465111 Inject 100 Unit(s) Subcutaneous TID 02/10/20 24 024 Inactive Radha Enrique U-100 Insulin 100 unit/mL (3 mL) subcutaneous RxNorm: 5809013 Inject 30 Unit(s) Subcutaneous BID 02/10/20 24 024 Inactive Please dispense one month supply. pregabalin 100 mg capsule RxNorm: 938885 Take 1 Capsule(s) Oral QAM every morning 02/07/20 24 024 Inactive isosorbide mononitrate ER 60 mg tablet,extended release 24 hr RxNorm: 982920 Take 1 Tablet(s) Oral QD 02/01/20 24 025 Active aripiprazole 15 mg tablet RxNorm: 734298 Take 1/2 Tablet(s) Oral QD 02/01/20 24 025 Active torsemide 20 mg tablet RxNorm: 114415 1 TAB ORALLY DAILY (DX: EDEMA) 01/27/20 No Stop Date Active potassium chloride ER 20 mEq tablet,extended release(part/cryst) RxNorm: 0102892 2 TABS (40MEQ) ORALLY TWICE DAILY (DX: HYPOKALEMIA) 01/27/20 24 025 Inactive cephalexin 500 mg capsule RxNorm: 782995 Take 1 Capsule(s) Oral QID 12/17/19 24 024 Inactive cephalexin 500 mg capsule RxNorm: 149603 Take 1 Capsule(s) Oral QID 12/17/19 24 024 Inactive acetaminophen 500 mg tablet RxNorm: 525937 (MAX APAP:4GM/24HR) Take 1 Tablet(s) Oral TID as needed for pain 12/10/19 24 024 Inactive torsemide 20 mg tablet RxNorm: 774938 Take 1 Tablet(s) Oral QD 10/26/19 24 025 Inactive potassium chloride ER 20 mEq tablet,extended release RxNorm: 654493 Take 2 Tablet(s) Oral BID 10/26/19 24 025 Inactive torsemide 20 mg tablet RxNorm: 750247 Take 1 Tablet(s) Oral QD 10/26/19 24 024 Inactive potassium chloride ER 20 mEq tablet,extended release RxNorm: 397524 Take 2 Tablet(s) Oral BID 10/26/19 24 Inactive Artificial Tears (PF) 0.1 %-0.3 % drops in a dropperette RxNorm: 192396 Apply 1-2 Drop(s) Both eyes BID as needed 09/28/19 24 025 Inactive erythromycin 5 mg/gram (0.5 %) eye ointment RxNorm: 737681 Apply 1 Application Both eyes QHS every night at bedtime Instill ~1 cm ribbon into affected eye 09/28/19 24 024 Inactive Artificial Tears (PF) 0.1 %-0.3 % drops in a dropperette RxNorm: 233568 Apply 1-2 Drop(s) Both eyes BID as needed 09/28/19 24 024 Inactive erythromycin 5 mg/gram (0.5 %) eye ointment RxNorm: 182097 Apply 1 Application Both eyes QHS every night at bedtime Instill ~1 cm ribbon into affected eye 09/28/19 24 024 Inactive acetaminophen 500 mg tablet RxNorm: 296349 (MAX APAP:4GM/24HR) Take 1 Tablet(s) Oral TID as needed for pain 09/24/19 24 024 Inactive carvedilol 25 mg tablet RxNorm: 527960 Take 1 Tablet(s) Oral QD 09/08/19 24 No Stop Date Active pregabalin 100 mg capsule RxNorm: 368707 Take 1 Capsule(s) Oral QAM every morning 09/07/19 24 024 Inactive ezetimibe 10 mg tablet RxNorm: 412137 Take 1 Tablet(s) Oral QD 07/13/19 24 025 Inactive bisacodyl 10 mg rectal suppository RxNorm: 119457 Insert 1 Suppository Rectal QD as needed 07/13/19 24 No Stop Date Active polyethylene glycol 3350 17 gram/dose oral powder RxNorm: 172369 Take 17 Gram(s) Oral BID as needed mix in 4-8ox water 07/13/19 24 025 Inactive ketoconazole 2 % shampoo RxNorm: 088307 Apply 1 Application Topical UD as directed 07/13/19 No Stop Date Active Ozempic 1 mg/dose (4 mg/3 mL) subcutaneous pen injector RxNorm: 0904553 Inject 1 Milligram(s) Subcutaneous QW once a week 07/13/19 No Stop Date Active Guaifenesin AC 10 mg-100 mg/5 mL oral liquid RxNorm: 293350 Take 10 Milliliter(s) Oral Q4H every four hours as needed 07/13/19 No Stop Date Active ammonium lactate 12 % topical cream RxNorm: 351842 Apply 1 Application Topical BID 07/13/19 24 025 Inactive hydrocortisone 2.5 % topical cream RxNorm: 041787 Apply 1 Application Topical BID as needed 07/13/19 No Stop Date Active rosuvastatin 20 mg sprinkle capsule RxNorm: 1972530 Take 1 Capsule(s) Oral QD 07/13/19 24 025 Inactive rosuvastatin 40 mg tablet RxNorm: 989578 Take 1 Tablet(s) Oral QPM every evening 07/13/19 24 024 Inactive aripiprazole 15 mg tablet RxNorm: 612848 Take 1/2 Tablet(s) Oral QD 07/13/19 24 024 Inactive isosorbide mononitrate ER 60 mg tablet,extended release 24 hr RxNorm: 979050 Take 1 Tablet(s) Oral QD 07/13/19 24 024 Inactive Vascepa 1 gram capsule RxNorm: 9433435 Take 2 Capsule(s) Oral BID 07/13/19 24 024 Inactive venlafaxine ER 75 mg capsule,extended release 24 hr RxNorm: 638167 Take 3 Capsule(s) Oral QD 07/13/19 24 024 Inactive Basaglar KwikPen U-100 Insulin 100 unit/mL (3 mL) subcutaneous RxNorm: 4624533 Inject 30U SubQ twice daily 07/07/19 24 024 Inactive Please dispense one month supply. Basaglar KwikPen U-100 Insulin 100 unit/mL (3 mL) subcutaneous RxNorm: 3473435 Inject 30U SubQ twice daily 07/07/19 24 024 Inactive Please dispense one month supply. pregabalin 150 mg capsule RxNorm: 575015 Take 1 Capsule(s) Oral QHS every night at bedtime 07/05/19 024 Inactive pregabalin 150 mg capsule RxNorm: 545155 Take 1 Capsule(s) Oral QHS every night at bedtime 07/05/19 24 024 Inactive polyethylene glycol 3350 17 gram/dose oral powder RxNorm: 063642 Take 1 Packet Oral QD as needed (1 packet = 17g) mix with 4-8oz of liquid 06/15/19 24 024 Inactive bisacodyl 10 mg rectal suppository RxNorm: 382576 Insert one suppository per rectum once daily as needed for constipation 06/15/19 024 Inactive bisacodyl 10 mg rectal suppository RxNorm: 891560 Insert one suppository per rectum once daily as needed for constipation 06/15/19 024 Inactive pregabalin 100 mg capsule RxNorm: 101273 Take 1 Capsule(s) Oral QAM every morning 04/27/20 024 Inactive Levemir FlexPen 100 unit/mL (3 mL) solution subcutaneous insulin pen RxNorm: 375296 Inject 30 Unit(s) Subcutaneous BID 04/27/20 024 Inactive rosuvastatin 40 mg tablet RxNorm: 769373 Take 1 Tablet(s) Oral QPM every evening 04/16/20 024 Inactive D/C rosuvastatin 20mg venlafaxine ER 75 mg capsule,extended release 24 hr RxNorm: 880987 Take 3 Capsule(s) Oral QD 04/14/20 23 023 Inactive pregabalin 100 mg capsule RxNorm: 622343 Take 1 Capsule(s) Oral QAM every morning [...] strip clotrimazole 1 % topical cream RxNorm: 287030 Take apply topically to abdominal folds twice daily for 14 days 03/12/20 024 Inactive Ozempic 1 mg/dose (4 mg/3 mL) subcutaneous pen injector RxNorm: 7540534 Inject 1 Milligram(s) Subcutaneous QW once a week 03/11/20 23 023 Inactive rosuvastatin 20 mg tablet RxNorm: 706319 Take 1 Tablet(s) Oral QD 02/26/20 23 023 Inactive d/c pravastatin 80mg Ozempic 1 mg/dose (4 mg/3 mL) subcutaneous pen injector RxNorm: 6980380 Inject 1 Milligram(s) Subcutaneous QW once a week 02/20/20 23 023 Inactive pregabalin 150 mg capsule RxNorm: 149827 Take 1 Capsule(s) Oral HS at bed time 02/19/20 23 023 Inactive pregabalin 100 mg capsule RxNorm: 299060 Take 1 Capsule(s) Oral QAM every morning 02/18/20 23 023 Inactive venlafaxine ER 75 mg capsule,extended release 24 hr RxNorm: 763369 Take 3 Capsule(s) Oral QD 02/04/20 023 Inactive FreeStyle Chema 2 Sensor kit RxNorm: use as directed 02/04/20 23 023 Inactive FreeStyle Chema 2 Sensor kit RxNorm: use as directed 02/04/20 23 024 Inactive fluconazole 150 mg tablet RxNorm: 831125 Take 1 Tablet(s) Oral on day 3 and on day 6 02/03/20 23 024 Inactive venlafaxine ER 150 mg capsule,extended release 24 hr RxNorm: 189192 Take 1 Capsule(s) Oral QD 02/03/20 23 023 Inactive chlorthalidone 25 mg tablet RxNorm: 973888 Take 1 Tablet(s) Oral QAM every morning 02/03/20 23 024 Inactive acetaminophen 500 mg tablet RxNorm: 317874 1 TABLET ORALLY 3 TIMES DAILY (MAX APAP:4GM/24HR) 12/15/19 23 023 Inactive clotrimazole 1 % topical cream RxNorm: 725826 apply 1g topically to top of feet and in between toes BID 12/09/19 23 025 Inactive potassium chloride ER 20 mEq tablet,extended release RxNorm: 299085 Take 1 Tablet(s) Oral BID 12/09/19 024 Inactive d/c 20mEq once daily (sent from hospital) nystatin 100,000 unit/gram topical powder RxNorm: 926975 APPLY TO AFFECTED AREAS TOPICALLY 2 TIMES DAILY 11/21/19 23 023 Inactive Nystop 100,000 unit/gram topical powder RxNorm: 370748 Apply to abd folds, under breasts and L side of groin Topical BID x 14 days, then BID PRN 11/20/19 023 Inactive dx: yeast dermatitis Bengay Ultra Strength 4 %-30 %-10 % topical cream RxNorm: 019780 Apply 1 Gram(s) Topical QID PRN to feet and legs for neuropathic pain 11/11/19 23 024 Inactive clotrimazole 1 % topical cream RxNorm: 290460 Apply 1/2 Gram(s) Topical BID Apply to affected areas of groin, periarea, and abdominal topically 2 times daily 11/10/19 23 023 Inactive hydrocortisone 2.5 % topical cream RxNorm: 819037 Apply 1/2 Gram(s) Topical BID as needed 11/10/19 23 024 Inactive Levemir FlexPen 100 unit/mL (3 mL) solution subcutaneous insulin pen RxNorm: 786647 Inject 30 Unit(s) Subcutaneous BID 10/07/19 23 023 Inactive Humulin R U-500 (Concentrated) Insulin 500 unit/mL subcutaneous soln RxNorm: 739604 Inject 100 Unit(s) Subcutaneous TID 10/07/19 23 024 Inactive Ozempic 0.25 mg or 0.5 mg (2 mg/3 mL) subcutaneous pen injector RxNorm: 8650698 Inject 1/2 Milligram(s) Subcutaneous QW once a week 10/07/19 23 024 Inactive aripiprazole 15 mg tablet RxNorm: 883624 /2 TAB (7.5MG) ORALLY DAILY (DX:MAJOR DEPRESSIVE DISORDER) 09/23/19 23 023 Inactive Accu-Chek Guide test strips RxNorm: Use 1 Test Strip QID 09/15/19 23 023 Inactive ok to substitute with any covered alternative test strip Lancets,Thin 28 gauge RxNorm: Use 1 as directed QID 09/15/19 23 023 Inactive torsemide 20 mg tablet RxNorm: 422743 Take 1 Tablet(s) Oral BID 09/09/19 23 024 Inactive d/c once daily dosing carvedilol 25 mg tablet RxNorm: 918092 Take 1 Tablet(s) Oral QD 08/25/19 23 024 Inactive pregabalin 150 mg capsule RxNorm: 526600 1 Capsule(s) Oral HS at bed time 08/18/19 23 023 Inactive pregabalin 100 mg capsule RxNorm: 917204 1 Capsule(s) Oral QAM every morning 08/18/19 23 023 Inactive carvedilol 25 mg tablet RxNorm: 449701 1 Tablet(s) Oral QD 07/28/19 23 023 Inactive lisinopril 20 mg tablet RxNorm: 984396 Give 1 Tablet(s) Oral QD 07/28/19 23 023 Inactive Lyrica 150 mg capsule RxNorm: 041618 Take 1 Capsule(s) Oral QHS every night at bedtime 07/19/19 023 Inactive d/c 100mg dose Diflucan 150 mg tablet RxNorm: 757842 Take 1 Tablet(s) Oral QD repeat on day 3 and 6 07/19/19 23 023 Inactive pregabalin 100 mg capsule RxNorm: 354811 Take 1 Capsule(s) Oral QAM every morning 07/19/19 23 023 Inactive gatifloxacin 0.5 % eye drops RxNorm: 673940 Instill 1 Drop(s) as directed TID Instill 1 drop in to affected eye(s) starting 1 day prior to surgery and continue until gone (do not exceed 4 weeks). 07/13/19 23 023 Inactive carvedilol 25 mg tablet RxNorm: 845048 2 Tablet(s) Oral BID 07/13/19 23 023 Inactive Humulin R Regular U-100 Insulin 100 unit/mL injection solution RxNorm: 742868 85 Unit(s) Injection TID 07/13/19 23 023 Inactive ketorolac 0.5 % eye drops RxNorm: 462211 Instill 1 Drop(s) as directed QID Instill 1 drop into affected eye(s) 4 times daily starting 1 day prior to surgery and continue until gone (do not exceed 4 weeks). 07/13/19 23 023 Inactive Diflucan 150 mg tablet RxNorm: 265621 Take 1 Tablet(s) Oral QD repeat on day 3 and 6 06/30/19 23 023 Inactive Accu-Chek Guide test strips RxNorm: Use 1 Test Strip QID Use 1 test strip to monitor blood glucose 4 times daily and as needed. Dx:E11.42. 06/23/19 23 023 Inactive ok to substitute with any covered alternative test strip dextromethorphan-gu aifenesin 10 mg-100 mg/5 mL oral liquid RxNorm: 801204 Take 10 Milliliter(s) Oral every 4 hours as needed for cough 06/19/19 23 023 Inactive dextromethorphan-gu aifenesin 10 mg-100 mg/5 mL oral liquid RxNorm: 215962 Take 10 Milliliter(s) Oral every 4 hours as needed for cough 06/19/19 23 023 Inactive Lyrica 150 mg capsule RxNorm: 872252 Take 1 Capsule(s) Oral QHS every night at bedtime 06/18/19 23 023 Inactive d/c 100mg dose aripiprazole 15 mg tablet RxNorm: 418208 1/2 TAB (7.5MG) ORALLY DAILY (DX:MAJOR DEPRESSIVE DISORDER) 06/05/19 23 023 Inactive pregabalin 100 mg capsule RxNorm: 396811 1 Capsule(s) Oral QAM every morning 06/02/19 023 Inactive Banophen 50 mg capsule RxNorm: 5391565 Take 1 Capsule(s) Oral Q6H every 6 hours as needed 05/19/19 No Stop Date Active Novolog Flexpen U-100 Insulin aspart 100 unit/mL (3 mL) subcutaneous RxNorm: 3991933 Inject 10 Unit(s) Subcutaneous QHS every night at bedtime with nighttime snack 04/08/20 Inactive Novolog Flexpen U-100 Insulin aspart 100 unit/mL (3 mL) subcutaneous RxNorm: 9764345 Inject 42 Unit(s) Subcutaneous TID in addition to sliding scale 04/08/20 Inactive d/c 36u albuterol sulfate HFA 90 mcg/actuation aerosol inhaler RxNorm: 5870879 Take 2 Puff(s) Inhalation Q4H every four hours as needed as needed for SOB, cough, or wheezing 04/07/20 030 Active Banophen 50 mg capsule RxNorm: 0339305 Take 1 Capsule(s) Oral Q6H every 6 hours as needed 04/06/20 023 Inactive diphenhydramine 50 mg tablet RxNorm: 3104313 Take 1 Tablet(s) Oral Q6H every 6 hours as needed 04/06/20 022 Inactive diphenhydramine 50 mg tablet RxNorm: 5617208 1 Tablet(s) Oral Q6H every 6 hours as needed 04/06/20 022 Inactive Abilify 15 mg tablet RxNorm: 796689 1/2 Tablet(s) Oral QD 03/10/20 023 Inactive Shingrix (PF) 50 mcg/0.5 mL intramuscular suspension, kit RxNorm: 3537692 Administer 1/2 Milliliter(s) Intramuscular QD one time shingrix step 2 ( step 1 given 11/04/21) WITH needle - Nursing please administer upon arrival and once administered post a bridge message with date of administration, nitrating acid mixer, expiration date, and lot# so we can update [facility] 02/18/20 22 022 Inactive dispense with needle Shingrix (PF) 50 mcg/0.5 mL intramuscular suspension, kit RxNorm: 3225337 Administer 1/2 Milliliter(s) Intramuscular QD one time shingrix step 2 ( step 1 given 11/04/21) WITH needle - Nursing please administer upon arrival and once administered post a bridge message with date of administration, nitrating acid mixer, expiration date, and lot# so we can update [facility] 02/18/20 22 022 Inactive dispense with needle polyethylene glycol 3350 17 gram/dose oral powder RxNorm: 636181 Take 17=1 capful Gram(s) Oral QD mix with 4-8oz of liquid 01/08/20 22 025 Inactive take this in addition to BID prn order Lyrica 100 mg capsule RxNorm: 180175 Take 1 Capsule(s) Oral QAM every morning 01/08/20 22 022 Inactive d/c 50mg dose acetaminophen 500 mg tablet RxNorm: 691253 Take 1 Tablet(s) Oral TID 01/08/20 22 022 Inactive d/c PRN order Lyrica 150 mg capsule RxNorm: 264340 Take 1 Capsule(s) Oral QHS every night at bedtime 01/08/20 22 023 Inactive d/c 100mg dose Abilify 5 mg tablet RxNorm: 335946 Take 1 Tablet(s) Oral QD take 1 tab po QD #30 refill 5 dx: MDD 12/12/19 22 022 Inactive Abilify 5 mg tablet RxNorm: 790369 Take 1 Tablet(s) Oral QD take 1 tab po QD #30 refill 5 dx: MDD 12/12/19 22 022 Inactive Novolog Flexpen U-100 Insulin aspart 100 unit/mL (3 mL) subcutaneous RxNorm: 2625276 Inject 42 Unit(s) Subcutaneous TID in addition to sliding scale 12/10/19 22 022 Inactive d/c 36u chlorthalidone 25 mg tablet RxNorm: 676775 Take 1 Tablet(s) Oral QAM every morning 12/10/19 22 023 Inactive pregabalin 50 mg capsule RxNorm: 048703 Take 1 Capsule(s) Oral QAM every morning 11/12/19 22 022 Inactive tetanus-diphtheria toxoids-Td 2 Lf unit-2 Lf unit/0.5 mL IM suspension RxNorm: 139 Take 0.5 Miscellaneous Intramuscular 11/12/19 22 022 Inactive need tdap - nursing to administer upon arrival pregabalin 50 mg capsule RxNorm: 559633 Take 1 Capsule(s) Oral QAM every morning 10/16/19 22 022 Inactive pregabalin 50 mg capsule RxNorm: 262294 Take 1 Capsule(s) Oral QAM every morning 10/16/19 22 022 Inactive pregabalin 50 mg capsule RxNorm: 601725 1 Capsule(s) Oral QAM every morning 10/15/19 22 022 Inactive Shingrix (PF) 50 mcg/0.5 mL intramuscular suspension, kit RxNorm: 6141793 Administer 1/2 Milliliter(s) Intramuscular one time Nursing please administer upon arrival and once administered post a bridge message with date of administration, nitrating acid mixer, expiration date, and lot# so we can update [facility]. 10/09/19 22 022 Inactive shingrix step 1 Shingrix (PF) 50 mcg/0.5 mL intramuscular suspension, kit RxNorm: 5463238 Administer 1/2 Milliliter(s) Intramuscular one time Nursing please administer upon arrival and once administered post a bridge message with date of administration, nitrating acid mixer, expiration date, and lot# so we can [...] aspart 100 unit/mL (3 mL) subcutaneous RxNorm: 8140605 Inject 10 Unit(s) Subcutaneous QHS every night at bedtime with nighttime snack 10/08/19 22 022 Inactive Shingrix (PF) 50 mcg/0.5 mL intramuscular suspension, kit RxNorm: 6299965 ADMINISTER 2-DOSE SERIES PER CDC GUIDELINES 10/08/19 22 Active Shingrix (PF) 50 mcg/0.5 mL intramuscular suspension, kit RxNorm: 8145020 ADMINISTER 2-DOSE SERIES PER CDC GUIDELINES 10/08/19 22 Inactive Novolog Flexpen U-100 Insulin aspart 100 unit/mL (3 mL) subcutaneous RxNorm: 3997691 Inject 36 Unit(s) Subcutaneous TID in addition to sliding scale 10/08/19 22 Inactive cholecalciferol (vitamin D3) 1,250 mcg (50,000 unit) capsule RxNorm: 425958 Take 1 Capsule(s) Oral QW once a week 10/08/19 024 Inactive Novofine Autocover 30 gauge x 1/3 needle RxNorm: Use 1 Miscellaneous UD as directed Use 1 needle as directed to administer insulin 5 times a day Dx:E11.42. 10/03/19 22 Inactive ok to substitute with any covered alternative pen needle benzoyl peroxide 10 % topical cleanser RxNorm: 870052 Apply 1 Application Topical QD apply to face, wash rinse and dry once daily (may change to QOD if drying) 08/19/19 22 022 Inactive (%covered by insurance) #60ml refill 11 dx: acne benzoyl peroxide 10 % topical cleanser RxNorm: 299362 Apply 1 Application Topical QD apply to face, wash rinse and dry once daily (may change to QOD if drying) 08/19/19 22 022 Inactive (%covered by insurance) #60ml refill 11 dx: acne benzoyl peroxide 10 % topical cleanser RxNorm: 507640 Apply 1 Application Topical QD apply to face, wash rinse and dry once daily (may change to QOD if drying) 08/19/19 22 022 Inactive (%covered by insurance) #60ml refill 11 dx: acne Lyrica 50 mg capsule RxNorm: 235284 Take 1 Capsule(s) Oral QAM every morning Take 1 capsule by mouth once daily 08/19/19 22 Inactive benzoyl peroxide 10 % topical cleanser RxNorm: 197677 Apply 1 Application Topical QD apply to face, wash rinse and dry once daily (may change to QOD if drying) 08/19/19 22 Inactive (%covered by insurance) #60ml refill 11 dx: acne Lyrica 100 mg capsule RxNorm: 670012 Take 1 Capsule(s) Oral QHS every night at bedtime Take 1 capsule by mouth once daily at bedtime 08/19/19 22 022 Inactive Lyrica 100 mg capsule RxNorm: 221983 Take 1 Capsule(s) Oral QHS every night at bedtime Take 1 capsule by mouth once daily at bedtime 08/16/19 Inactive Lyrica 50 mg capsule RxNorm: 120422 Take 1 Capsule(s) Oral QAM every morning Take 1 capsule by mouth once daily 08/16/19 22 Inactive Levemir FlexTouch U-100 Insulin 100 unit/mL (3 mL) subcutaneous pen RxNorm: 779232 Inject 86 Unit(s) Subcutaneous BID 08/05/19 22 022 Inactive d/c 83units BID Lyrica 100 mg capsule RxNorm: 193910 Take 1 Capsule(s) Oral QHS every night at bedtime Take 1 capsule by mouth once daily at bedtime 07/14/19 22 022 Inactive Lyrica 50 mg capsule RxNorm: 528153 Take 1 Capsule(s) Oral QAM every morning Take 1 capsule by mouth once daily 07/14/19 22 022 Inactive Levemir FlexTouch U-100 Insulin 100 unit/mL (3 mL) subcutaneous pen RxNorm: 013626 Inject 83 Unit(s) Subcutaneous BID 07/08/19 22 022 Inactive d/c 80units BID Accu-Chek Guide Glucose Meter RxNorm: Use 1 Miscellaneous UD as directed Use glucose meter to monitor blood glucose 4 times daily and as needed. Dx:E11.42 06/05/19 Inactive ok to substitute with any [...] test strip hydralazine 50 mg tablet RxNorm: 814218 Take 1 Tablet(s) Oral QID 05/05/20 21 022 Inactive venlafaxine ER 225 mg tablet,extended release 24 hr RxNorm: 784893 Take 1 Tablet(s) Oral QD 05/05/20 21 021 Inactive venlafaxine ER 225 mg tablet,extended release 24 hr RxNorm: 858392 Take 1 Tablet(s) Oral QD 05/05/20 022 Inactive isosorbide mononitrate ER 30 mg tablet,extended release 24 hr RxNorm: 906195 Take 1 Tablet(s) Oral QD 05/05/20 21 024 Inactive hydralazine 50 mg tablet RxNorm: 375598 Take 1 Tablet(s) Oral QID 05/05/20 021 Inactive aspirin 81 mg tablet,delayed release RxNorm: 809997 Take 1 Tablet(s) Oral QD 03/31/20 022 Inactive Vitamin D2 1,250 mcg (50,000 unit) capsule RxNorm: 3483142 Take 1 Capsule(s) Oral QW once a week x 12 weeks 03/31/20 022 Inactive Vitamin D2 1,250 mcg (50,000 unit) capsule RxNorm: 2461812 Take 1 Capsule(s) Oral QW once a week 03/31/20 021 Inactive Zetia 10 mg tablet RxNorm: 695947 Take 1 Tablet(s) Oral QD 03/31/20 024 Inactive Zetia 10 mg tablet RxNorm: 791253 Take 1 Tablet(s) Oral QD 03/31/20 021 Inactive hydralazine 25 mg tablet RxNorm: 749538 Take 1 Tablet(s) Oral QID 03/31/20 21 021 Inactive hydralazine 25 mg tablet RxNorm: 362553 Take 1 Tablet(s) Oral QID 03/31/20 021 Inactive hydralazine 10 mg tablet RxNorm: 654120 Take 1 Tablet(s) Oral QID 03/03/20 021 Inactive cephalexin 500 mg tablet RxNorm: 053441 Take 1 Tablet(s) Oral QID 02/27/20 021 Inactive cephalexin 500 mg tablet RxNorm: 038408 Take 1 Tablet(s) Oral QID 02/27/20 021 Inactive lisinopril 40 mg tablet RxNorm: 621196 Take 1 Tablet(s) Oral QD 02/11/20 21 023 Inactive Eliquis 5 mg tablet RxNorm: 8182088 Take 1 Tablet(s) Oral BID 01/05/20 21 025 Inactive Eliquis 5 mg tablet RxNorm: 8409543 Take 2 Tablet(s) Oral QD 01/01/20 21 021 Inactive Lyrica 50 mg capsule RxNorm: 755620 Take 1 Capsule(s) Oral QAM every morning 12/24/19 21 021 Inactive Lyrica 100 mg capsule RxNorm: 894778 Take 1 Capsule(s) Oral QHS every night at bedtime 12/24/19 021 Inactive clotrimazole 1 % topical cream RxNorm: 426356 Apply to right foot and toes Topical BID 12/04/19 21 023 Inactive metoprolol succinate ER 200 mg tablet,extended release 24 hr RxNorm: 263783 Take 1 Tablet(s) Oral QD 12/04/19 21 023 Inactive ciprofloxacin 500 mg tablet RxNorm: 502944 Take 1 Tablet(s) Oral QD 11/30/19 21 021 Inactive DX ofloxacin otic drops Accu-Chek Guide test strips RxNorm: USE 1 TO CHECK GLUCOSE 4 TIMES DAILY AND NEEDED 11/15/19 21 023 Inactive Blood Glucose Test strips RxNorm: Use 1 Test Strip QID at PRN 11/05/19 21 023 Inactive E11.42 lisinopril 30 mg tablet RxNorm: 975319 Take 1 Tablet(s) Oral QD 10/30/19 021 Inactive lisinopril 20 mg tablet RxNorm: 143436 Take 1 Tablet(s) Oral QD 10/23/19 21 021 Inactive lisinopril 20 mg tablet RxNorm: 351595 Take 1 Tablet(s) Oral QD 10/23/19 21 021 Inactive lisinopril 10 mg tablet RxNorm: 404048 Take 1 Tablet(s) Oral QD 10/02/19 21 021 Inactive icosapent ethyl 1 gram capsule RxNorm: 8254014 Take 2 Capsule(s) (2 gm) Oral BID with meals 09/12/19 21 024 Inactive Okay to dispense one 2gm tab if you have that available. icosapent ethyl 1 gram capsule RxNorm: 4248960 Take 2 Capsule(s) Oral BID 09/12/19 21 021 Inactive Okay to dispense one 2gm tab if you have that available. amlodipine 10 mg tablet RxNorm: 108124 Take 1 Tablet(s) Oral QD 09/04/19 021 Inactive aspirin 81 mg tablet,delayed release RxNorm: 202539 Take 1 Tablet(s) Oral QD 09/04/19 21 021 Inactive Levemir FlexTouch U-100 Insulin 100 unit/mL (3 mL) subcutaneous pen RxNorm: 591450 Inject 150 Unit(s) Subcutaneous BID 09/04/19 022 Inactive venlafaxine ER 150 mg tablet,extended release 24 hr RxNorm: 209823 Take 1 Tablet(s) Oral QD 09/04/19 021 Inactive clotrimazole-betame thasone 1 %-0.05 % topical cream RxNorm: 949628 Apply to rash on red area on left abdomen/chest Topical BID 08/10/19 21 021 Inactive amlodipine 5 mg tablet RxNorm: 837544 Take 1 Tablet(s) Oral QD 07/31/19 021 Inactive cephalexin 500 mg tablet RxNorm: 886820 Take 1 Tablet(s) Oral BID BID - Twice Daily 07/31/19 021 Inactive Start 08/01/20 pantoprazole 40 mg tablet,delayed release RxNorm: 848976 Take 1 Tablet(s) Oral QAM every morning 07/08/19 21 025 Inactive senna 8.6 mg tablet RxNorm: 033925 Take 1 Tablet(s) Oral QD 07/08/19 025 Inactive carbamazepine 200 mg tablet RxNorm: 804865 Take 1 Tablet(s) Oral BID 07/08/19 21 025 Inactive clopidogrel 75 mg tablet RxNorm: 119076 Take 1 Tablet(s) Oral QD 07/08/19 21 021 Inactive Blood Glucose Test strips RxNorm: Use 1 Test Strip QID at PRN 07/08/19 21 021 Inactive E11.42 Novolog Flexpen U-100 Insulin aspart 100 unit/mL (3 mL) subcutaneous RxNorm: 3646581 Administer per sliding scale Milliliter(s) Subcutaneous TID 151-200: 10 u; 201-250: 20 u; 251-300: 30 u; 301-350: 40 u; 351-400: 50 u. 07/08/19 21 022 Inactive lisinopril 5 mg tablet RxNorm: 614266 Take 1 Tablet(s) Oral QD 07/08/19 21 021 Inactive Novolog Flexpen U-100 Insulin aspart 100 unit/mL (3 mL) subcutaneous RxNorm: 5421971 Inject 85 Unit(s) Subcutaneous TID 07/08/19 022 Inactive pravastatin 80 mg tablet RxNorm: 434695 Take 1 Tablet(s) Oral QHS every night at bedtime 07/08/19 023 Inactive clotrimazole 1 % topical cream RxNorm: 803130 Apply to bilateral groin areas Topical BID 07/08/19 Inactive metoprolol succinate ER 200 mg tablet,extended release 24 hr RxNorm: 830416 Take 1 Tablet(s) Oral QD 07/08/19 021 Inactive Vitamin D3 25 mcg (1,000 unit) tablet RxNorm: 412979 Take 1 Tablet(s) Oral QD 07/08/19 021 Inactive isosorbide dinitrate 30 mg tablet RxNorm: 590101 Take 1 Tablet(s) Oral QD 07/08/19 021 Inactive Levemir FlexTouch U-100 Insulin 100 unit/mL (3 mL) subcutaneous pen RxNorm: 198832 Inject 140 Unit(s) Subcutaneous BID 07/08/19 021 Inactive torsemide 20 mg tablet RxNorm: 659779 Take 1 Tablet(s) Oral QD 07/08/19 023 Inactive venlafaxine 75 mg tablet RxNorm: 623319 Take 1 Tablet(s) Oral QD 07/08/19 021 Inactive acetaminophen 500 mg tablet RxNorm: 677188 Take 1 Tablet(s) Oral TID as needed for headache 06/18/19 021 Inactive acetaminophen 500 mg tablet RxNorm: 674768 Take 1 Tablet(s) Oral TID as needed for headache 06/18/19 021 Inactive Lyrica 100 mg capsule RxNorm: 553317 Take 1 Capsule(s) Oral QHS every night at bedtime 06/11/19 21 021 Inactive Lyrica 50 mg capsule RxNorm: 716041 Take 1 Capsule(s) Oral QAM every morning 06/10/19 21 021 Inactive hydrocortisone 2.5 % topical cream RxNorm: 912338 Apply to bilateral groin creases Topical BID 05/15/20 20 021 Inactive clotrimazole 1 % topical cream RxNorm: 819191 Apply to bilateral groin areas Topical BID 05/15/20 20 021 Inactive Lyrica 50 mg capsule RxNorm: 944189 Take 1 Capsule(s) Oral QAM every morning 05/14/20 20 020 Inactive Lyrica 100 mg capsule RxNorm: 235986 Take 1 Capsule(s) Oral QHS every night [...] Inactive Nystop 100,000 unit/gram topical powder RxNorm: 610856 Apply to abd folds, under breasts and L side of groin Topical BID x 14 days, then BID PRN 04/08/20 20 020 Inactive dx: yeast dermatitis Lyrica 100 mg capsule RxNorm: 354540 Take 1 Capsule(s) Oral QHS every night at bedtime 03/13/20 20 020 Inactive Lyrica 50 mg capsule RxNorm: 467190 Take 1 Capsule(s) Oral QAM every morning 03/13/20 20 Inactive ketoconazole 2 % shampoo RxNorm: 724806 Apply Topical two times a week with showers 03/11/20 20 024 Inactive cholecalciferol (vitamin D3) 50 mcg (2,000 unit) tablet RxNorm: 575676 Take 1 Tablet(s) Oral QD 03/11/20 20 021 Inactive Zetia 10 mg tablet RxNorm: 334246 Take 1 Tablet(s) Oral QD 03/07/20 20 021 Inactive Zetia 10 mg tablet RxNorm: 279129 Take 1 Tablet(s) Oral QD 03/07/20 20 Inactive Lyrica 50 mg capsule RxNorm: 924049 Take 1 Capsule(s) Oral QAM every morning 02/15/20 20 Inactive Lyrica 100 mg capsule RxNorm: 552892 Take 1 Capsule(s) Oral QHS every night at bedtime 02/15/20 20 Inactive Lyrica 100 mg capsule RxNorm: 682829 Take 1 Capsule(s) Oral QHS every night at bedtime 02/15/20 20 Inactive Lyrica 50 mg capsule RxNorm: 666305 Take 1 Capsule(s) Oral QAM every morning 02/15/20 20 Inactive metoprolol succinate ER 200 mg tablet,extended release 24 hr RxNorm: 840315 Take 1 Tablet(s) Oral QD 08/12/19 025 Inactive loperamide 2 mg capsule RxNorm: 018664 Take 1 Capsule(s) Oral QID as needed 09/06/19 25 025 Inactive hydralazine 50 mg tablet RxNorm: 954693 Take 1 Tablet(s) Oral QID 08/12/19 23 025 Inactive Soft Touch Lancets RxNorm: miscellaneous 03/04/20 24 025 Inactive venlafaxine ER 75 mg capsule,extended release 24 hr RxNorm: 118907 Take 3 Capsule(s) Oral QD 06/12/19 22 023 Inactive polyethylene glycol 3350 17 gram/dose oral powder RxNorm: 216458 Take 17=1 capful Gram(s) Oral BID as needed mix with 4-8oz of liquid 06/12/19 22 024 Inactive icosapent ethyl 1 gram capsule RxNorm: 8094256 Take 2 Capsule(s) (2 gm) Oral BID with meals 10/07/19 23 023 Inactive Okay to dispense one 2gm tab if you have that available. Levemir FlexTouch U-100 Insulin 100 unit/mL (3 mL) subcutaneous pen RxNorm: 532887 Inject 80 Unit(s) Subcutaneous BID 07/14/19 23 023 Inactive Novolog Flexpen U-100 Insulin aspart 100 unit/mL (3 mL) subcutaneous RxNorm: 0729334 Insert 30 Unit(s) Subcutaneous TID with meals [...] Planned Activity Notes Codes Status Date Referral: [facility]/Imaging WPtel: [address] [id number] USReferralAppointment Gwvdmeupk59/06/2025Referral: [facility]/Endocrinology WPtel: [address] [facility] [address] [id number] USReferralNo Records [id number]/24/2025Referral: [facility] WPtel: [address] [id number] USReferralRecords [id number]/08/2023Referral: [facility] WPtel: [address] [facility] [address] [id number]/12/2022Referral: General CardiologyReferralCompleted 1Referral: General PsychologistReferralClosedReferral: General PsychiatristReferralPatient/Family [...] Sister Jyotsna involved in his care cell# [phone] Guardian: Don (tapan met in person 09/01/21), now has Lexii (same group as don)AWV 9.. Lab Schedule: Mar-*September (CBC with diff, [...] appointment 05.26.2024 with Jessa Webster MD at [facility]. Start Pioglitazone 15 mg QD. Stop Basaglar insulin. Increase Ozempic 2 mg once wkly. Continue Humalin R U-500 100 units with meals TID. FOLLOW UP 2 MONTHS. If BG >400 add 50 units to next scheduled dose of Humalin R U 500 insulin 06/12/2024
--- OUTSIDE RECORDS SUMMARY | 2024-10-19 18:32 | XMS_ITS | CCD ---
Author Name Cecilio Durham Address [address] [place] [address] Phone Organization [facility] Phone Care Team Providers Care Vp Name Role Phone Harrison Durham Primary Care Provider Leona vailable Unavailable Chronic Care Management Unavaila ble Summary Purpose DataExchange Insurance Providers Payer name Policy type / Coverage type Covered democrat ID Effective Begin Date Effective End Date Medicare [place] Medicare Part B [id number] Unknown Unknown Medicaid [place] Medicare Part B [id number] Unknown Unknown Family history Sister Brittany Suggs Diagnosis Age At Onset No Family Disease Entered N/A Runs in the family Diagnosis Age At Onset No Known Diseases N/A Sister Blanka Mcduffie Diagnosis Age At Onset No Family Disease Entered N/A Social History Social History Element Codes Description Effec tive Dates Tobacco history SNOMED CT: 116290700 Never smoker 01/16 Sexually Active? Unknown No [...] Living arrangements Unknown Care Home 09/03/[address]: 379850909 No Alcohol Consum ption 09/02/2020 Allergies, Adverse Reactions, Alerts Substance Reaction Codes Entered Date Inactivated Date Status * NO KNOWN FOOD ALLERGIES Xxgrduw8207/13/2023No Inactive DateActiveLISINOPRILRxNorm: 047585702/12/2020No Inactive DateActiveMetformin VIpMvqxfgg24/28/2020No Inactive DateActive* NO KNOWN ENVIRONMENTAL NKRHYJAONWpmlxfm38/27/2024No Inactive DateActive Problems Condition Codes Effective Dates [...] planning - to document end of life exrpofahkkuNnwujrb47/24/2024ctiveAdvance care planningICD-10: Z71.89 ICD-9: V65.4909ctiveAmputated toe of [...] E55.9 ICD-9: 268.909/ctiveCallus of heelICD-10: L84 ICD-9: 87655/esolvedGout due to renal impairmentICD-10: M10.30 ICD-9: 274.1005/esolvedHyperhidrosis [...] tagICD-10: L91.8 ICD-9: 701.904/esolvedCoronary artery disease involving north fork coronary artery of north fork heart, angina presence unspecifiedICD-10: I25.10 ICD-9: 414.0102/ctiveInappropriate sexual behaviorICD-10: Z72.89 ICD-9: 312.8910/ctivePre-op evaluationICD-10: Z01.818 ICD-9: V72.8403/ctiveSecondary hypertensionICD-10: I15.9 ICD-9: 405.9903/3ActiveDepressionICD-10: F32.9 ICD-9: 40291/esolvedDVT (deep venous thrombosis)ICD-10: I82.409 ICD-9: 453.4009/esolvedEncounter for [...] to other viral communicable diseasesICD-10: Z20.828 ICD-9: V01.7902/7568EzjxtvhsXawgheupUwsmgfl63/28/2020ActiveDiabetes mellitus Type 3Puonjzz12/28/2020ActiveAnemia in chronic kidney diseaseICD-10: D63.1 02/12/2020ResolvedHyperlipidemia, unspecifiedICD-10: E78.Resolved Medications Medication Codes Instructions Start Date Stop Date Status Fill Instructions nystatin 100,000 unit/gram topical powder RxNorm: 543008 Apply 1 Application Topical BID as needed abdominal/breast /groin folds 11/ Inactive chlorthalidone 25 mg tablet RxNorm: 385914 Take 1 Tablet(s) Oral QAM every morning 04/06/20 No Stop Date Active pregabalin 150 mg capsule RxNorm: 379864 Take 1 Capsule(s) Oral QHS every night at bedtime 03/31/20 Inactive Vascepa 1 gram capsule RxNorm: 7900237 Take 2 Capsule(s) Oral BID 03/30/20 Active rosuvastatin 40 mg tablet RxNorm: 468823 1 TAB ORALLY EVERY EVENING (DX:CORONARY ARTERY DISEASE) 03/28/20 No Stop Date Active venlafaxine ER 75 mg capsule,extended release 24 hr RxNorm: 966013 3 CAPS (225MG) ORALLY DAILY (DX: MOOD DISORDER) 03/28/20 No Stop Date Active pregabalin 100 mg capsule RxNorm: 450354 Take 1 Capsule(s) Oral QAM every morning 03/20/20 Inactive cholecalciferol (vitamin D3) 1,250 mcg (50,000 unit) capsule RxNorm: 170211 Take 1 Capsule(s) Oral QW once a [...] substitute with any covered alternative test strip aRdha MendenhallPen U-100 Insulin 100 unit/mL (3 mL) subcutaneous RxNorm: 6063783 Inject 40 Unit(s) Subcutaneous BID 03/07/20 025 Inactive Please dispense one month supply. Humulin R U-500 (Concentrated) Insulin 500 unit/mL subcutaneous soln RxNorm: 026037 Inject 100 Unit(s) Subcutaneous AC before meals [...] PRN) to be use with new Accu Milton meter 03/04/20 Inactive ok to substitute with any covered alternative test strip FreeStyle Chema 2 Sensor kit RxNorm: Use UD as directed 03/02/20 025 Inactive FreeStyle Chema 2 Sensor kit RxNorm: Use UD as directed 03/02/20 Inactive Pen Needle 30 gauge x 09/29 RxNorm: Pen(s) Use 1 needle as directed TID 03/02/20 Inactive nystatin 100,000 unit/gram topical powder RxNorm: 377886 Apply 1 Application Topical BID as needed [...] (Concentrated) Insulin 500 unit/mL subcutaneous soln RxNorm: 642038 Inject 100 Unit(s) Subcutaneous TID 02/17/20 24 024 Inactive Humulin R U-500 (Concentrated) Insulin 500 unit/mL subcutaneous soln RxNorm: 972335 Inject 100 Unit(s) Subcutaneous TID 02/10/20 24 024 Inactive Tusharaglar ZaPen U-100 Insulin 100 unit/mL (3 mL) subcutaneous RxNorm: 7699667 Inject 30 Unit(s) Subcutaneous BID 02/10/20 24 024 Inactive Please dispense one month supply. pregabalin 100 mg capsule RxNorm: 315108 Take 1 Capsule(s) Oral QAM every morning 02/07/20 024 Inactive isosorbide mononitrate ER 60 mg tablet,extended release 24 hr RxNorm: 797248 Take 1 Tablet(s) Oral QD 02/01/20 24 025 Active aripiprazole 15 mg tablet RxNorm: 825334 Take 1/2 Tablet(s) Oral QD 02/01/20 24 025 Active torsemide 20 mg tablet RxNorm: 650348 1 TAB ORALLY DAILY (DX: EDEMA) 01/27/20 No Stop Date Active potassium chloride ER 20 mEq tablet,extended release(part/cryst) RxNorm: 4582329 2 TABS (40MEQ) ORALLY TWICE DAILY (DX: HYPOKALEMIA) 01/27/20 24 025 Inactive cephalexin 500 mg capsule RxNorm: 695343 Take 1 Capsule(s) Oral QID 12/17/19 24 024 Inactive cephalexin 500 mg capsule RxNorm: 512835 Take 1 Capsule(s) Oral QID 12/17/19 24 024 Inactive acetaminophen 500 mg tablet RxNorm: 367449 (MAX APAP:4GM/24HR) Take 1 Tablet(s) Oral TID as needed for pain 12/10/19 24 024 Inactive torsemide 20 mg tablet RxNorm: 697511 Take 1 Tablet(s) Oral QD 10/26/19 24 025 Inactive potassium chloride ER 20 mEq tablet,extended release RxNorm: 153721 Take 2 Tablet(s) Oral BID 10/26/19 24 Inactive torsemide 20 mg tablet RxNorm: 798375 Take 1 Tablet(s) Oral QD 10/26/19 24 Inactive potassium chloride ER 20 mEq tablet,extended release RxNorm: 592999 Take 2 Tablet(s) Oral BID 10/26/19 24 024 Inactive Artificial Tears (PF) 0.1 %-0.3 % drops in a dropperette RxNorm: 735651 Apply 1-2 Drop(s) Both eyes BID as needed 09/28/19 24 Inactive erythromycin 5 mg/gram (0.5 %) eye ointment RxNorm: 366460 Apply 1 Application Both eyes QHS every night at bedtime Instill ~1 cm ribbon into affected eye 09/28/19 24 024 Inactive Artificial Tears (PF) 0.1 %-0.3 % drops in a dropperette RxNorm: 289418 Apply 1-2 Drop(s) Both eyes BID as needed 09/28/19 24 024 Inactive erythromycin 5 mg/gram (0.5 %) eye ointment RxNorm: 071671 Apply 1 Application Both eyes QHS every night at bedtime Instill ~1 cm ribbon into affected eye 09/28/19 24 Inactive acetaminophen 500 mg tablet RxNorm: 947358 (MAX APAP:4GM/24HR) Take 1 Tablet(s) Oral TID as needed for pain 09/24/19 024 Inactive carvedilol 25 mg tablet RxNorm: 109727 Take 1 Tablet(s) Oral QD 09/08/19 24 No Stop Date Active pregabalin 100 mg capsule RxNorm: 156405 Take 1 Capsule(s) Oral QAM every morning 09/07/19 24 024 Inactive ezetimibe 10 mg tablet RxNorm: 464101 Take 1 Tablet(s) Oral QD 07/13/19 24 025 Inactive bisacodyl 10 mg rectal suppository RxNorm: 567287 Insert 1 Suppository Rectal QD as needed 07/13/19 24 No Stop Date Active polyethylene glycol 3350 17 gram/dose oral powder RxNorm: 096522 Take 17 Gram(s) Oral BID as needed mix in 4-8ox water 07/13/19 24 025 Inactive ketoconazole 2 % shampoo RxNorm: 162476 Apply 1 Application Topical UD as directed 07/13/19 No Stop Date Active Ozempic 1 mg/dose (4 mg/3 mL) subcutaneous pen injector RxNorm: 9883497 Inject 1 Milligram(s) Subcutaneous QW once a week 07/13/19 No Stop Date Active Guaifenesin AC 10 mg-100 mg/5 mL oral liquid RxNorm: 491661 Take 10 Milliliter(s) Oral Q4H every four hours as needed 07/13/19 No Stop Date Active ammonium lactate 12 % topical cream RxNorm: 983468 Apply 1 Application Topical BID 07/13/19 24 025 Inactive hydrocortisone 2.5 % topical cream RxNorm: 181450 Apply 1 Application Topical BID as needed 07/13/19 No Stop Date Active rosuvastatin 20 mg sprinkle capsule RxNorm: 2849379 Take 1 Capsule(s) Oral QD 07/13/19 24 025 Inactive rosuvastatin 40 mg tablet RxNorm: 858331 Take 1 Tablet(s) Oral QPM every evening 07/13/19 24 024 Inactive aripiprazole 15 mg tablet RxNorm: 838359 Take 1/2 Tablet(s) Oral QD 07/13/19 24 024 Inactive isosorbide mononitrate ER 60 mg tablet,extended release 24 hr RxNorm: 317056 Take 1 Tablet(s) Oral QD 07/13/19 24 024 Inactive Vascepa 1 gram capsule RxNorm: 9315052 Take 2 Capsule(s) Oral BID 07/13/19 24 024 Inactive venlafaxine ER 75 mg capsule,extended release 24 hr RxNorm: 831098 Take 3 Capsule(s) Oral QD 07/13/19 24 024 Inactive Basagldestin Enrique U-100 Insulin 100 unit/mL (3 mL) subcutaneous RxNorm: 9324292 Inject 30U SubQ twice daily 07/07/19 24 024 Inactive Please dispense one month supply. Basagldestin EugeneikPen U-100 Insulin 100 unit/mL (3 mL) subcutaneous RxNorm: 6023836 Inject 30U SubQ twice daily 07/07/19 24 024 Inactive Please dispense one month supply. pregabalin 150 mg capsule RxNorm: 432918 Take 1 Capsule(s) Oral QHS every night at bedtime 07/05/19 24 024 Inactive pregabalin 150 mg capsule RxNorm: 777550 Take 1 Capsule(s) Oral QHS every night at bedtime 07/05/19 24 024 Inactive polyethylene glycol 3350 17 gram/dose oral powder RxNorm: 381423 Take 1 Packet Oral QD as needed (1 packet = 17g) mix with 4-8oz of liquid 06/15/19 24 024 Inactive bisacodyl 10 mg rectal suppository RxNorm: 133464 Insert one suppository per rectum once daily as needed for constipation 06/15/19 24 024 Inactive bisacodyl 10 mg rectal suppository RxNorm: 196946 Insert one suppository per rectum once daily as needed for constipation 06/15/19 24 024 Inactive pregabalin 100 mg capsule RxNorm: 961547 Take 1 Capsule(s) Oral QAM every morning 04/27/20 23 024 Inactive Levemir FlexPen 100 unit/mL (3 mL) solution subcutaneous insulin pen RxNorm: 509610 Inject 30 Unit(s) Subcutaneous BID 04/27/20 23 024 Inactive rosuvastatin 40 mg tablet RxNorm: 425972 Take 1 Tablet(s) Oral QPM every evening 04/16/20 23 024 Inactive D/C rosuvastatin 20mg venlafaxine ER 75 mg capsule,extended release 24 hr RxNorm: 508017 Take 3 Capsule(s) Oral QD 04/14/20 23 023 Inactive pregabalin 100 mg capsule RxNorm: 596508 Take 1 Capsule(s) Oral QAM every morning [...] strip clotrimazole 1 % topical cream RxNorm: 543602 Take apply topically to abdominal folds twice daily for 14 days 03/12/20 23 024 Inactive Ozempic 1 mg/dose (4 mg/3 mL) subcutaneous pen injector RxNorm: 0130505 Inject 1 Milligram(s) Subcutaneous QW once a week 03/11/20 023 Inactive rosuvastatin 20 mg tablet RxNorm: 912278 Take 1 Tablet(s) Oral QD 02/26/20 23 023 Inactive d/c pravastatin 80mg Ozempic 1 mg/dose (4 mg/3 mL) subcutaneous pen injector RxNorm: 6832855 Inject 1 Milligram(s) Subcutaneous QW once a week 02/20/20 23 023 Inactive pregabalin 150 mg capsule RxNorm: 111013 Take 1 Capsule(s) Oral HS at bed time 02/19/20 23 023 Inactive pregabalin 100 mg capsule RxNorm: 721397 Take 1 Capsule(s) Oral QAM every morning 02/18/20 23 023 Inactive venlafaxine ER 75 mg capsule,extended release 24 hr RxNorm: 634631 Take 3 Capsule(s) Oral QD 02/04/20 23 023 Inactive FreeStyle Chema 2 Sensor kit RxNorm: use as directed 02/04/20 23 023 Inactive FreeStyle Chema 2 Sensor kit RxNorm: use as directed 02/04/20 23 024 Inactive fluconazole 150 mg tablet RxNorm: 081071 Take 1 Tablet(s) Oral on day 3 and on day 6 02/03/20 23 024 Inactive venlafaxine ER 150 mg capsule,extended release 24 hr RxNorm: 477180 Take 1 Capsule(s) Oral QD 02/03/20 23 023 Inactive chlorthalidone 25 mg tablet RxNorm: 570030 Take 1 Tablet(s) Oral QAM every morning 02/03/20 23 024 Inactive acetaminophen 500 mg tablet RxNorm: 946890 1 TABLET ORALLY 3 TIMES DAILY (MAX APAP:4GM/24HR) 12/15/19 23 023 Inactive clotrimazole 1 % topical cream RxNorm: 622838 apply 1g topically to top of feet and in between toes BID 12/09/19 23 025 Inactive potassium chloride ER 20 mEq tablet,extended release RxNorm: 334747 Take 1 Tablet(s) Oral BID 12/09/19 23 024 Inactive d/c 20mEq once daily (sent from hospital) nystatin 100,000 unit/gram topical powder RxNorm: 996248 APPLY TO AFFECTED AREAS TOPICALLY 2 TIMES DAILY 11/21/19 23 023 Inactive Nystop 100,000 unit/gram topical powder RxNorm: 320943 Apply to abd folds, under breasts and L side of groin Topical BID x 14 days, then BID PRN 11/20/19 23 023 Inactive dx: yeast dermatitis Bengay Ultra Strength 4 %-30 %-10 % topical cream RxNorm: 680447 Apply 1 Gram(s) Topical QID PRN to feet and legs for neuropathic pain 11/11/19 23 024 Inactive clotrimazole 1 % topical cream RxNorm: 467451 Apply 1/2 Gram(s) Topical BID Apply to affected areas of groin, periarea, and abdominal topically 2 times daily 11/10/19 23 023 Inactive hydrocortisone 2.5 % topical cream RxNorm: 658206 Apply 1/2 Gram(s) Topical BID as needed 11/10/19 23 024 Inactive Levemir FlexPen 100 unit/mL (3 mL) solution subcutaneous insulin pen RxNorm: 661243 Inject 30 Unit(s) Subcutaneous BID 10/07/19 23 023 Inactive Humulin R U-500 (Concentrated) Insulin 500 unit/mL subcutaneous soln RxNorm: 992544 Inject 100 Unit(s) Subcutaneous TID 10/07/19 024 Inactive Ozempic 0.25 mg or 0.5 mg (2 mg/3 mL) subcutaneous pen injector RxNorm: 5788941 Inject 1/2 Milligram(s) Subcutaneous QW once a week 10/07/19 024 Inactive aripiprazole 15 mg tablet RxNorm: 823858 1/2 TAB (7.5MG) ORALLY DAILY (DX:MAJOR DEPRESSIVE DISORDER) 09/23/19 023 Inactive Accu-Chek Guide test strips RxNorm: Use 1 Test Strip QID 09/15/19 023 Inactive ok to substitute with any covered alternative test strip Lancets,Thin 28 gauge RxNorm: Use 1 as directed QID 09/15/19 023 Inactive torsemide 20 mg tablet RxNorm: 994850 Take 1 Tablet(s) Oral BID 09/09/19 024 Inactive d/c once daily dosing carvedilol 25 mg tablet RxNorm: 783055 Take 1 Tablet(s) Oral QD 08/25/19 23 024 Inactive pregabalin 150 mg capsule RxNorm: 096222 1 Capsule(s) Oral HS at bed time 08/18/19 023 Inactive pregabalin 100 mg capsule RxNorm: 876123 1 Capsule(s) Oral QAM every morning 08/18/19 023 Inactive carvedilol 25 mg tablet RxNorm: 591678 1 Tablet(s) Oral QD 07/28/19 023 Inactive lisinopril 20 mg tablet RxNorm: 625797 Give 1 Tablet(s) Oral QD 07/28/19 23 023 Inactive Lyrica 150 mg capsule RxNorm: 448375 Take 1 Capsule(s) Oral QHS every night at bedtime 07/19/19 023 Inactive d/c 100mg dose Diflucan 150 mg tablet RxNorm: 808537 Take 1 Tablet(s) Oral QD repeat on day 3 and 6 07/19/19 23 023 Inactive pregabalin 100 mg capsule RxNorm: 209902 Take 1 Capsule(s) Oral QAM every morning 07/19/19 23 023 Inactive gatifloxacin 0.5 % eye drops RxNorm: 266434 Instill 1 Drop(s) as directed TID Instill 1 drop in to affected eye(s) starting 1 day prior to surgery and continue until gone (do not exceed 4 weeks). 07/13/19 23 023 Inactive carvedilol 25 mg tablet RxNorm: 640181 2 Tablet(s) Oral BID 07/13/19 23 023 Inactive Humulin R Regular U-100 Insulin 100 unit/mL injection solution RxNorm: 238189 85 Unit(s) Injection TID 07/13/19 23 023 Inactive ketorolac 0.5 % eye drops RxNorm: 349373 Instill 1 Drop(s) as directed QID Instill 1 drop into affected eye(s) 4 times daily starting 1 day prior to surgery and continue until gone (do not exceed 4 weeks). 07/13/19 023 Inactive Diflucan 150 mg tablet RxNorm: 546622 Take 1 Tablet(s) Oral QD repeat on day 3 and 6 06/30/19 23 023 Inactive Accu-Chek Guide test strips RxNorm: Use 1 Test Strip QID Use 1 test strip to monitor blood glucose 4 times daily and as needed. Dx:E11.42. 06/23/19 23 023 Inactive ok to substitute with any covered alternative test strip dextromethorphan-gu aifenesin 10 mg-100 mg/5 mL oral liquid RxNorm: 755183 Take 10 Milliliter(s) Oral every 4 hours as needed for cough 06/19/19 23 023 Inactive dextromethorphan-gu aifenesin 10 mg-100 mg/5 mL oral liquid RxNorm: 703053 Take 10 Milliliter(s) Oral every 4 hours as needed for cough 06/19/19 23 023 Inactive Lyrica 150 mg capsule RxNorm: 932335 Take 1 Capsule(s) Oral QHS every night at bedtime 06/18/19 23 023 Inactive d/c 100mg dose aripiprazole 15 mg tablet RxNorm: 790148 1/2 TAB (7.5MG) ORALLY DAILY (DX:MAJOR DEPRESSIVE DISORDER) 06/05/19 023 Inactive pregabalin 100 mg capsule RxNorm: 035041 1 Capsule(s) Oral QAM every morning 06/02/19 023 Inactive Banophen 50 mg capsule RxNorm: 2369993 Take 1 Capsule(s) Oral Q6H every 6 hours as needed 05/19/19 No Stop Date Active Novolog Flexpen U-100 Insulin aspart 100 unit/mL (3 mL) subcutaneous RxNorm: 3083598 Inject 10 Unit(s) Subcutaneous QHS every night at bedtime with nighttime snack 04/08/20 022 Inactive Novolog Flexpen U-100 Insulin aspart 100 unit/mL (3 mL) subcutaneous RxNorm: 0688351 Inject 42 Unit(s) Subcutaneous TID in addition to sliding scale 04/08/20 022 Inactive d/c 36u albuterol sulfate HFA 90 mcg/actuation aerosol inhaler RxNorm: 0329202 Take 2 Puff(s) Inhalation Q4H every four hours as needed as needed for SOB, cough, or wheezing 04/07/20 030 Active Banophen 50 mg capsule RxNorm: 5714208 Take 1 Capsule(s) Oral Q6H every 6 hours as needed 04/06/20 023 Inactive diphenhydramine 50 mg tablet RxNorm: 0281343 Take 1 Tablet(s) Oral Q6H every 6 hours as needed 04/06/20 22 022 Inactive diphenhydramine 50 mg tablet RxNorm: 7307928 1 Tablet(s) Oral Q6H every 6 hours as needed 04/06/20 22 022 Inactive Abilify 15 mg tablet RxNorm: 026463 1/2 Tablet(s) Oral QD 03/10/20 22 023 Inactive Shingrix (PF) 50 mcg/0.5 mL intramuscular suspension, kit RxNorm: 4741149 Administer 1/2 Milliliter(s) Intramuscular QD one time shingrix step 2 ( step 1 given 11/04/21) WITH needle - Nursing please administer upon arrival and once administered post a bridge message 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, 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, 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, and lot# so we can update [facility] 02/18/20 22 022 Inactive dispense with needle Shingrix (PF) 50 mcg/0.5 mL intramuscular suspension, kit RxNorm: 7310506 Administer 1/2 Milliliter(s) Intramuscular QD one time shingrix step 2 ( step 1 given 11/04/21) WITH needle - Nursing please administer upon arrival and once administered post a bridge message 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, 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, 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, and lot# so we can update [facility] 02/18/20 22 022 Inactive dispense with needle polyethylene glycol 3350 17 gram/dose oral powder RxNorm: 203765 Take 17=1 capful Gram(s) Oral QD mix with 4-8oz of liquid 01/08/20 22 025 Inactive take this in addition to BID prn order Lyrica 100 mg capsule RxNorm: 392471 Take 1 Capsule(s) Oral QAM every morning 01/08/20 22 022 Inactive d/c 50mg dose acetaminophen 500 mg tablet RxNorm: 888665 Take 1 Tablet(s) Oral TID 01/08/20 22 022 Inactive d/c PRN order Lyrica 150 mg capsule RxNorm: 304902 Take 1 Capsule(s) Oral QHS every night at bedtime 01/08/20 22 023 Inactive d/c 100mg dose Abilify 5 mg tablet RxNorm: 559197 Take 1 Tablet(s) Oral QD take 1 tab po QD #30 refill 5 dx: MDD 12/12/19 22 022 Inactive Abilify 5 mg tablet RxNorm: 897686 Take 1 Tablet(s) Oral QD take 1 tab po QD #30 refill 5 dx: MDD 12/12/19 22 022 Inactive Novolog Flexpen U-100 Insulin aspart 100 unit/mL (3 mL) subcutaneous RxNorm: 6797419 Inject 42 Unit(s) Subcutaneous TID in addition to sliding scale 12/10/19 22 022 Inactive d/c 36u chlorthalidone 25 mg tablet RxNorm: 238248 Take 1 Tablet(s) Oral QAM every morning 12/10/19 22 023 Inactive pregabalin 50 mg capsule RxNorm: 267408 Take 1 Capsule(s) Oral QAM every morning 11/12/19 22 022 Inactive tetanus-diphtheria toxoids-Td 2 Lf unit-2 Lf unit/0.5 mL IM suspension RxNorm: 139 Take 0.5 Miscellaneous Intramuscular 11/12/19 22 022 Inactive need tdap - nursing to administer upon arrival pregabalin 50 mg capsule RxNorm: 180191 Take 1 Capsule(s) Oral QAM every morning 10/16/19 22 022 Inactive pregabalin 50 mg capsule RxNorm: 917078 Take 1 Capsule(s) Oral QAM every morning 10/16/19 22 022 Inactive pregabalin 50 mg capsule RxNorm: 918831 1 Capsule(s) Oral QAM every morning 10/15/19 22 022 Inactive Shingrix (PF) 50 mcg/0.5 mL intramuscular suspension, kit RxNorm: 0561976 Administer 1/2 Milliliter(s) Intramuscular one time Nursing please administer upon arrival and once administered post a bridge message 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, and lot# so we [...] aspart 100 unit/mL (3 mL) subcutaneous RxNorm: 2804531 Inject 10 Unit(s) Subcutaneous QHS every night at bedtime with nighttime snack 10/08/19 22 022 Inactive Shingrix (PF) 50 mcg/0.5 mL intramuscular suspension, kit RxNorm: 3344085 ADMINISTER 2-DOSE SERIES PER CDC GUIDELINES 10/08/19 22 Active Shingrix (PF) 50 mcg/0.5 mL intramuscular suspension, kit RxNorm: 3754102 ADMINISTER 2-DOSE SERIES PER CDC GUIDELINES 10/08/19 22 Inactive Novolog Flexpen U-100 Insulin aspart 100 unit/mL (3 mL) subcutaneous RxNorm: 9774914 Inject 36 Unit(s) Subcutaneous TID in addition to sliding scale 10/08/19 Inactive cholecalciferol (vitamin D3) 1,250 mcg (50,000 unit) capsule RxNorm: 981659 Take 1 Capsule(s) Oral QW once a week 10/08/19 22 024 Inactive Novofine Autocover 30 gauge x 1/3 needle RxNorm: Use 1 Miscellaneous UD as directed Use 1 needle as directed to administer insulin 5 times a day Dx:E11.42. 10/03/19 22 022 Inactive ok to substitute with any covered alternative pen needle benzoyl peroxide 10 % topical cleanser RxNorm: 938034 Apply 1 Application Topical QD apply to face, wash rinse and dry once daily (may change to QOD if drying) 08/19/19 22 022 Inactive (%covered by insurance) #60ml refill 11 dx: acne benzoyl peroxide 10 % topical cleanser RxNorm: 057469 Apply 1 Application Topical QD apply to face, wash rinse and dry once daily (may change to QOD if drying) 08/19/19 22 022 Inactive (%covered by insurance) #60ml refill 11 dx: acne benzoyl peroxide 10 % topical cleanser RxNorm: 732850 Apply 1 Application Topical QD apply to face, wash rinse and dry once daily (may change to QOD if drying) 08/19/19 22 022 Inactive (%covered by insurance) #60ml refill 11 dx: acne Lyrica 50 mg capsule RxNorm: 217467 Take 1 Capsule(s) Oral QAM every morning Take 1 capsule by mouth once daily 08/19/19 22 022 Inactive benzoyl peroxide 10 % topical cleanser RxNorm: 897551 Apply 1 Application Topical QD apply to face, wash rinse and dry once daily (may change to QOD if drying) 08/19/19 22 022 Inactive (%covered by insurance) #60ml refill 11 dx: acne Lyrica 100 mg capsule RxNorm: 765635 Take 1 Capsule(s) Oral QHS every night at bedtime Take 1 capsule by mouth once daily at bedtime 08/19/19 22 022 Inactive Lyrica 100 mg capsule RxNorm: 007312 Take 1 Capsule(s) Oral QHS every night at bedtime Take 1 capsule by mouth once daily at bedtime 08/16/19 22 022 Inactive Lyrica 50 mg capsule RxNorm: 414128 Take 1 Capsule(s) Oral QAM every morning Take 1 capsule by mouth once daily 08/16/19 22 022 Inactive Levemir FlexTouch U-100 Insulin 100 unit/mL (3 mL) subcutaneous pen RxNorm: 881608 Inject 86 Unit(s) Subcutaneous BID 08/05/19 22 022 Inactive d/c 83units BID Lyrica 100 mg capsule RxNorm: 110256 Take 1 Capsule(s) Oral QHS every night at bedtime Take 1 capsule by mouth once daily at bedtime 07/14/19 22 022 Inactive Lyrica 50 mg capsule RxNorm: 618777 Take 1 Capsule(s) Oral QAM every morning Take 1 capsule by mouth once daily 07/14/19 22 022 Inactive Levemir FlexTouch U-100 Insulin 100 unit/mL (3 mL) subcutaneous pen RxNorm: 590352 Inject 83 Unit(s) Subcutaneous BID 07/08/19 22 [...] test strip hydralazine 50 mg tablet RxNorm: 947237 Take 1 Tablet(s) Oral QID 05/05/20 21 022 Inactive venlafaxine ER 225 mg tablet,extended release 24 hr RxNorm: 615604 Take 1 Tablet(s) Oral QD 05/05/20 21 021 Inactive venlafaxine ER 225 mg tablet,extended release 24 hr RxNorm: 149713 Take 1 Tablet(s) Oral QD 05/05/20 21 022 Inactive isosorbide mononitrate ER 30 mg tablet,extended release 24 hr RxNorm: 333585 Take 1 Tablet(s) Oral QD 05/05/20 024 Inactive hydralazine 50 mg tablet RxNorm: 808640 Take 1 Tablet(s) Oral QID 05/05/20 21 021 Inactive aspirin 81 mg tablet,delayed release RxNorm: 504757 Take 1 Tablet(s) Oral QD 03/31/20 022 Inactive Vitamin D2 1,250 mcg (50,000 unit) capsule RxNorm: 1862359 Take 1 Capsule(s) Oral QW once a week x 12 weeks 03/31/20 022 Inactive Vitamin D2 1,250 mcg (50,000 unit) capsule RxNorm: 2958476 Take 1 Capsule(s) Oral QW once a week 03/31/20 021 Inactive Zetia 10 mg tablet RxNorm: 560710 Take 1 Tablet(s) Oral QD 03/31/20 024 Inactive Zetia 10 mg tablet RxNorm: 297841 Take 1 Tablet(s) Oral QD 03/31/20 021 Inactive hydralazine 25 mg tablet RxNorm: 229020 Take 1 Tablet(s) Oral QID 03/31/20 021 Inactive hydralazine 25 mg tablet RxNorm: 223469 Take 1 Tablet(s) Oral QID 03/31/20 021 Inactive hydralazine 10 mg tablet RxNorm: 763140 Take 1 Tablet(s) Oral QID 03/03/20 021 Inactive cephalexin 500 mg tablet RxNorm: 663283 Take 1 Tablet(s) Oral QID 02/27/20 021 Inactive cephalexin 500 mg tablet RxNorm: 992999 Take 1 Tablet(s) Oral QID 02/27/20 021 Inactive lisinopril 40 mg tablet RxNorm: 951294 Take 1 Tablet(s) Oral QD 02/11/20 21 023 Inactive Eliquis 5 mg tablet RxNorm: 0121998 Take 1 Tablet(s) Oral BID 01/05/20 21 025 Inactive Eliquis 5 mg tablet RxNorm: 5123653 Take 2 Tablet(s) Oral QD 01/01/20 21 021 Inactive Lyrica 50 mg capsule RxNorm: 280987 Take 1 Capsule(s) Oral QAM every morning 12/24/19 21 021 Inactive Lyrica 100 mg capsule RxNorm: 456050 Take 1 Capsule(s) Oral QHS every night at bedtime 12/24/19 21 021 Inactive clotrimazole 1 % topical cream RxNorm: 262801 Apply to right foot and toes Topical BID 12/04/19 21 023 Inactive metoprolol succinate ER 200 mg tablet,extended release 24 hr RxNorm: 567903 Take 1 Tablet(s) Oral QD 12/04/19 21 023 Inactive ciprofloxacin 500 mg tablet RxNorm: 034760 Take 1 Tablet(s) Oral QD 11/30/19 21 021 Inactive DX ofloxacin otic drops Accu-Chek Guide test strips RxNorm: USE 1 TO CHECK GLUCOSE 4 TIMES DAILY AND NEEDED 11/15/19 21 023 Inactive Blood Glucose Test strips RxNorm: Use 1 Test Strip QID at PRN 11/05/19 21 023 Inactive E11.42 lisinopril 30 mg tablet RxNorm: 024772 Take 1 Tablet(s) Oral QD 10/30/19 021 Inactive lisinopril 20 mg tablet RxNorm: 949846 Take 1 Tablet(s) Oral QD 10/23/19 21 021 Inactive lisinopril 20 mg tablet RxNorm: 165160 Take 1 Tablet(s) Oral QD 10/23/19 21 021 Inactive lisinopril 10 mg tablet RxNorm: 251722 Take 1 Tablet(s) Oral QD 10/02/19 21 021 Inactive icosapent ethyl 1 gram capsule RxNorm: 0269736 Take 2 Capsule(s) (2 gm) Oral BID with meals 09/12/19 21 024 Inactive Okay to dispense one 2gm tab if you have that available. icosapent ethyl 1 gram capsule RxNorm: 3517732 Take 2 Capsule(s) Oral BID 09/12/19 21 021 Inactive Okay to dispense one 2gm tab if you have that available. amlodipine 10 mg tablet RxNorm: 527127 Take 1 Tablet(s) Oral QD 09/04/19 21 021 Inactive aspirin 81 mg tablet,delayed release RxNorm: 096726 Take 1 Tablet(s) Oral QD 09/04/19 21 021 Inactive Levemir FlexTouch U-100 Insulin 100 unit/mL (3 mL) subcutaneous pen RxNorm: 595658 Inject 150 Unit(s) Subcutaneous BID 09/04/19 21 022 Inactive venlafaxine ER 150 mg tablet,extended release 24 hr RxNorm: 509375 Take 1 Tablet(s) Oral QD 09/04/19 21 021 Inactive clotrimazole-betame thasone 1 %-0.05 % topical cream RxNorm: 546200 Apply to rash on red area on left abdomen/chest Topical BID 08/10/19 21 021 Inactive amlodipine 5 mg tablet RxNorm: 581844 Take 1 Tablet(s) Oral QD 07/31/19 021 Inactive cephalexin 500 mg tablet RxNorm: 321037 Take 1 Tablet(s) Oral BID BID - Twice Daily 07/31/19 21 021 Inactive Start 08/01/20 pantoprazole 40 mg tablet,delayed release RxNorm: 303782 Take 1 Tablet(s) Oral QAM every morning 07/08/19 025 Inactive senna 8.6 mg tablet RxNorm: 097162 Take 1 Tablet(s) Oral QD 07/08/19 025 Inactive carbamazepine 200 mg tablet RxNorm: 251752 Take 1 Tablet(s) Oral BID 07/08/19 21 025 Inactive clopidogrel 75 mg tablet RxNorm: 440569 Take 1 Tablet(s) Oral QD 07/08/19 21 021 Inactive Blood Glucose Test strips RxNorm: Use 1 Test Strip QID at PRN 07/08/19 21 021 Inactive E11.42 Novolog Flexpen U-100 Insulin aspart 100 unit/mL (3 mL) subcutaneous RxNorm: 2984150 Administer per sliding scale Milliliter(s) Subcutaneous TID 151-200: 10 u; 201-250: 20 u; 251-300: 30 u; 301-350: 40 u; 351-400: 50 u. 07/08/19 022 Inactive lisinopril 5 mg tablet RxNorm: 930257 Take 1 Tablet(s) Oral QD 07/08/19 021 Inactive Novolog Flexpen U-100 Insulin aspart 100 unit/mL (3 mL) subcutaneous RxNorm: 2333408 Inject 85 Unit(s) Subcutaneous TID 07/08/19 022 Inactive pravastatin 80 mg tablet RxNorm: 866485 Take 1 Tablet(s) Oral QHS every night at bedtime 07/08/19 023 Inactive clotrimazole 1 % topical cream RxNorm: 137056 Apply to bilateral groin areas Topical BID 07/08/19 022 Inactive metoprolol succinate ER 200 mg tablet,extended release 24 hr RxNorm: 843491 Take 1 Tablet(s) Oral QD 07/08/19 021 Inactive Vitamin D3 25 mcg (1,000 unit) tablet RxNorm: 500585 Take 1 Tablet(s) Oral QD 07/08/19 021 Inactive isosorbide dinitrate 30 mg tablet RxNorm: 158578 Take 1 Tablet(s) Oral QD 07/08/19 021 Inactive Levemir FlexTouch U-100 Insulin 100 unit/mL (3 mL) subcutaneous pen RxNorm: 336068 Inject 140 Unit(s) Subcutaneous BID 07/08/19 021 Inactive torsemide 20 mg tablet RxNorm: 930696 Take 1 Tablet(s) Oral QD 07/08/19 023 Inactive venlafaxine 75 mg tablet RxNorm: 947853 Take 1 Tablet(s) Oral QD 07/08/19 021 Inactive acetaminophen 500 mg tablet RxNorm: 156432 Take 1 Tablet(s) Oral TID as needed for headache 06/18/19 21 021 Inactive acetaminophen 500 mg tablet RxNorm: 746769 Take 1 Tablet(s) Oral TID as needed for headache 06/18/19 21 021 Inactive Lyrica 100 mg capsule RxNorm: 235630 Take 1 Capsule(s) Oral QHS every night at bedtime 06/11/19 21 021 Inactive Lyrica 50 mg capsule RxNorm: 123468 Take 1 Capsule(s) Oral QAM every morning 06/10/19 21 021 Inactive hydrocortisone 2.5 % topical cream RxNorm: 443868 Apply to bilateral groin creases Topical BID 05/15/20 20 021 Inactive clotrimazole 1 % topical cream RxNorm: 540527 Apply to bilateral groin areas Topical BID 05/15/20 20 021 Inactive Lyrica 50 mg capsule RxNorm: 979374 Take 1 Capsule(s) Oral QAM every morning 05/14/20 20 020 Inactive Lyrica 100 mg capsule RxNorm: 444114 Take 1 Capsule(s) Oral QHS every night [...] Inactive Nystop 100,000 unit/gram topical powder RxNorm: 871724 Apply to abd folds, under breasts and L side of groin Topical BID x 14 days, then BID PRN 04/08/20 20 11/23/2 020 Inactive dx: yeast dermatitis Lyrica 100 mg capsule RxNorm: 878395 Take 1 Capsule(s) Oral QHS every night at bedtime 03/13/20 20 Inactive Lyrica 50 mg capsule RxNorm: 070397 Take 1 Capsule(s) Oral QAM every morning 03/13/20 20 Inactive ketoconazole 2 % shampoo RxNorm: 436843 Apply Topical two times a week with showers 03/11/20 Inactive cholecalciferol (vitamin D3) 50 mcg (2,000 unit) tablet RxNorm: 354496 Take 1 Tablet(s) Oral QD 03/11/20 Inactive Zetia 10 mg tablet RxNorm: 564115 Take 1 Tablet(s) Oral QD 03/07/20 20 021 Inactive Zetia 10 mg tablet RxNorm: 427231 Take 1 Tablet(s) Oral QD 03/07/20 Inactive Lyrica 50 mg capsule RxNorm: 017275 Take 1 Capsule(s) Oral QAM every morning 02/15/20 20 Inactive Lyrica 100 mg capsule RxNorm: 871615 Take 1 Capsule(s) Oral QHS every night at bedtime 02/15/20 20 Inactive Lyrica 100 mg capsule RxNorm: 400007 Take 1 Capsule(s) Oral QHS every night at bedtime 02/15/20 20 Inactive Lyrica 50 mg capsule RxNorm: 777009 Take 1 Capsule(s) Oral QAM every morning 02/15/20 20 Inactive metoprolol succinate ER 200 mg tablet,extended release 24 hr RxNorm: 285757 Take 1 Tablet(s) Oral QD 08/12/19 025 Inactive loperamide 2 mg capsule RxNorm: 403812 Take 1 Capsule(s) Oral QID as needed 09/06/19 025 Inactive hydralazine 50 mg tablet RxNorm: 615984 Take 1 Tablet(s) Oral QID 08/12/19 025 Inactive Soft Touch Lancets RxNorm: miscellaneous 03/04/20 24 025 Inactive venlafaxine ER 75 mg capsule,extended release 24 hr RxNorm: 265249 Take 3 Capsule(s) Oral QD 06/12/19 22 023 Inactive polyethylene glycol 3350 17 gram/dose oral powder RxNorm: 648940 Take 17=1 capful Gram(s) Oral BID as needed mix with 4-8oz of liquid 06/12/19 22 024 Inactive icosapent ethyl 1 gram capsule RxNorm: 7618151 Take 2 Capsule(s) (2 gm) Oral BID with meals 10/07/19 23 023 Inactive Okay to dispense one 2gm tab if you have that available. Levemir FlexTouch U-100 Insulin 100 unit/mL (3 mL) subcutaneous pen RxNorm: 901605 Inject 80 Unit(s) Subcutaneous BID 07/14/19 23 023 Inactive Novolog Flexpen U-100 Insulin aspart 100 unit/mL (3 mL) subcutaneous RxNorm: 8456758 Insert 30 Unit(s) Subcutaneous TID with meals [...] Planned Activity Notes Codes Status Date Referral: [facility] Radiology/Imaging WPtel: [address] [place], [place] [id number] USReferralAppointment Eadafhsem18/06/2025Referral: [facility]/Endocrinology WPtel: [address] [place] [address] 3 [id number] USReferralNo Records Apzvvtqz62/24/2025Patient Education: Patient Medication EotqhpdOpbvyekzl46/18/2024ppointment: Harrison Munson WPtel: [address] [facility] 300 [id number] USAWV02/08/2024ppointment: Harrison Munson WPtel: [address] [facility] 300 [id number] USF/U001/11/2024ppointment: Sandra Clark WPtel: [address] [facility] Psych Follow Up12/09/2022ppointment: Tapan Shirley WPtel: [address] [facility]10/26/2022Referral: [facility] WPtel: [address], [address] [id number] USReferralRecords Kpusnvnl13/08/2023ppointment: Tapan Shirley WPtel: [address] [facility] [address] [id number] USF/08/11/2022ppointment: Tapan Shirley WPtel: [address] [facility] [address] [id number] USF/U007/14/2022ppointment: Tapan Shirley WPtel: [address] [facility] 300 [id number] USF/2Referral: [facility] WPtel: [address] [id number] RGPyovcgqsOhjduzziy02/12/2022Referral: General CardiologyReferralCompleted 1Referral: General PsychologistReferralClosedReferral: General PsychiatristReferralPatient/Family [...] Sister Jyotsna involved in his care cell# [phone] Guardian: Giulia (tapan met in person 09/01/21), [...] appointment 05.26.2024 with Jessa Webster MD at [facility]. Start Pioglitazone 15 mg QD. Stop Basaglar insulin. Increase Ozempic 2 mg once wkly. Continue Humalin R U-500 100 units with meals TID. FOLLOW UP 2 MONTHS. If BG >400 add 50 units to next scheduled dose of Humalin R U 500 insulin 06/12/2024
--- OUTSIDE RECORDS SUMMARY | 2024-10-19 18:32 | XMS_ITS | CCD ---
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 Press Feeder [place] Name Role Phone Arpit VIDALKeeganHarrison Primary Care Provider Leona vailable Unavailable Chronic Care Management Unavaila ble Summary Purpose DataExchange Insurance Providers Payer name Policy type / Coverage type Covered green party ID Effective Begin Date Effective End Date [place] [id number] Unknown Unknown [place] Part B [id number] Unknown Unknown Family history Sister Brittany Suggs Diagnosis Age At Onset No Family Disease Entered N/A Runs in the family Diagnosis Age At Onset No Known Diseases N/A Sister Blanka Mcduffie Diagnosis Age At Onset No Family Disease Entered N/A Social History Social History Element Codes Description Effec tive Dates Tobacco history SNOMED CT: 532062446 Never smoker 01/16 Sexually Active? Unknown No [...] Mcfp 09/03/[address]: 216664992 No Alcohol Consum ption 09/02/2020 Allergies, Adverse Reactions, Alerts Substance Reaction Codes Entered Date Inactivated Date Status * NO KNOWN FOOD ALLERGIES Opvzqnu2007/13/2023No Inactive DateActiveLISINOPRILRxNorm: 8344059No Inactive DateActiveMetformin VGhQvqufan64/28/2020No Inactive DateActive* NO KNOWN ENVIRONMENTAL WVCREUTBLFedthbm89/27/2024No Inactive DateActive Problems Condition Codes Effective Dates Condition St atus Advance care planning ICD-10: Z71.89 ICD-9: V65.4912/ctiveHemorrhoidsICD-10: K64.9 ICD-9: 455.612/ctiveHyperlipidemia associated with type 2 diabetes mellitusICD-10: E11.69 ICD-9: 250.8012/ctiveHypertensive heart disease without heart failure ICD-10: I11.9 ICD-9: 402.9012ctiveHypokalemiaICD-10: E87.6 ICD-9: 276.812ctiveStage 2 chronic 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ICD-10: E11.22 ICD-9: 250.4012ctiveType 2 diabetes mellitus with diabetic polyneuropathy, with long-term current use of insulinICD-10: E11.42 ICD-9: 250.6012/ctiveOnychogryposisICD-10: L60.2 ICD-9: 703.811/ctiveBMI 60.0-69.9, adultICD-10: Z68.44 ICD-9: V85.4410ctiveDiabetic neuropathy associated with type 2 diabetes mellitusICD-10: E11.40 ICD-9: 250.6010/ctiveLow back painICD-10: M54.50 ICD-9: 724.210/ctiveParaparesis of both lower limbsICD-10: G82.20 ICD-9: 344.110/ctivePhysical deconditioningICD-10: R53.81 ICD-9: 799.310/ctivePVD (peripheral vascular disease)ICD-10: I73.9 ICD-9: 443.910/ctiveAdvanced care planning - to document end of life zaqozhpryorAjzyhhx86/24/2024ctiveAmputated toe of right footICD-10: S98.131A ICD-9: 895.009ctiveAnnual [...] E55.9 ICD-9: 268.909/ctiveCallus of heelICD-10: L84 ICD-9: 15451/esolvedGout due to renal impairmentICD-10: M10.30 ICD-9: 274.1005/esolvedHyperhidrosis of palmsICD-10: L74.512 ICD-9: 705.21010/12/2023esolvedHyperlipidemia, unspecifiedICD-10: E78.5 ICD-9: 272.405/esolvedOther job change crew member (current) drug therapyICD-10: Z79.899 ICD-9: V58.6905esolvedPain of [...] tagICD-10: L91.8 ICD-9: 701.904esolvedCoronary artery disease involving [place] coronary artery of [place] heart, angina presence unspecifiedICD-10: I25.10 ICD-9: 414.0102/ctiveInappropriate sexual behaviorICD-10: Z72.89 ICD-9: 312.8910/ctivePre-op evaluationICD-10: Z01.818 ICD-9: V72.8403/ctiveSecondary hypertensionICD-10: I15.9 ICD-9: 405.9903/ctiveDepressionICD-10: F32.9 ICD-9: 15132/esolvedDVT (deep venous thrombosis)ICD-10: I82.409 ICD-9: 453.4009/2ResolvedEncounter for [...] to other viral communicable diseasesICD-10: Z20.828 ICD-9: V01.7902/8507ZutvbvkoBcjugpybDrboyzb94/28/2020ActiveDiabetes mellitus Type 8Qdhuouj39/28/2020ActiveAnemia in chronic kidney diseaseICD-10: D63.1 02/12/2020ResolvedHyperlipidemia, unspecifiedICD-10: E78.509Resolved Medications Medication Codes Instructions Start Date Stop Date Status Fill Instructions pregabalin 100 mg capsule RxNorm: 914208 Take 1 Capsule(s) Oral QAM every morning 05/22/19 25 025 Inactive nystatin 100,000 unit/gram topical powder RxNorm: 160893 Apply 1 Application Topical BID as needed abdominal/breast /groin folds 04/11/20 24 024 Inactive chlorthalidone 25 mg tablet RxNorm: 823469 Take 1 Tablet(s) Oral QAM every morning 04/06/20 No Stop Date Active pregabalin 150 mg capsule RxNorm: 475701 Take 1 Capsule(s) Oral QHS every night at bedtime 03/31/20 Inactive Vascepa 1 gram capsule RxNorm: 0526139 Take 2 Capsule(s) Oral BID 03/30/20 Active rosuvastatin 40 mg tablet RxNorm: 921657 1 TAB ORALLY EVERY EVENING (DX:CORONARY ARTERY DISEASE) 03/28/20 No Stop Date Active venlafaxine ER 75 mg capsule,extended release 24 hr RxNorm: 911642 3 CAPS (225MG) ORALLY DAILY (DX: MOOD DISORDER) 03/28/20 No Stop Date Active pregabalin 100 mg capsule RxNorm: 895822 Take 1 Capsule(s) Oral QAM every morning 03/20/20 Inactive cholecalciferol (vitamin D3) 1,250 mcg (50,000 unit) capsule RxNorm: 488053 Take 1 Capsule(s) Oral QW once a [...] Insulin 100 unit/mL (3 mL) subcutaneous RxNorm: 8377617 Inject 40 Unit(s) Subcutaneous BID 03/07/20 025 Inactive Please dispense one month supply. Humulin R U-500 (Concentrated) Insulin 500 unit/mL subcutaneous soln RxNorm: 091668 Inject 100 Unit(s) Subcutaneous AC before meals [...] PRN) to be use with new Accu [place] meter 03/04/20 Inactive ok to substitute with any covered alternative test strip FreeStyle Chema 2 Sensor kit RxNorm: Use UD as directed 03/02/20 Inactive FreeStyle Chema 2 Sensor kit RxNorm: Use UD as directed 03/02/20 Inactive Pen Needle 30 gauge x 09/29 RxNorm: Pen(s) Use 1 needle as directed TID 03/02/20 Inactive nystatin 100,000 unit/gram topical powder RxNorm: 589576 Apply 1 Application Topical BID as needed [...] (Concentrated) Insulin 500 unit/mL subcutaneous soln RxNorm: 086577 Inject 100 Unit(s) Subcutaneous TID 02/17/20 24 024 Inactive Humulin R U-500 (Concentrated) Insulin 500 unit/mL subcutaneous soln RxNorm: 430063 Inject 100 Unit(s) Subcutaneous TID 02/10/20 24 024 Inactive Tusharagldestin MendenhallPen U-100 Insulin 100 unit/mL (3 mL) subcutaneous RxNorm: 8775826 Inject 30 Unit(s) Subcutaneous BID 02/10/20 24 024 Inactive Please dispense one month supply. pregabalin 100 mg capsule RxNorm: 728717 Take 1 Capsule(s) Oral QAM every morning 02/07/20 24 024 Inactive isosorbide mononitrate ER 60 mg tablet,extended release 24 hr RxNorm: 880835 Take 1 Tablet(s) Oral QD 02/01/20 24 025 Active aripiprazole 15 mg tablet RxNorm: 582872 Take 1/2 Tablet(s) Oral QD 02/01/20 24 025 Active torsemide 20 mg tablet RxNorm: 668918 1 TAB ORALLY DAILY (DX: EDEMA) 01/27/20 No Stop Date Active potassium chloride ER 20 mEq tablet,extended release(part/cryst) RxNorm: 5373666 2 TABS (40MEQ) ORALLY TWICE DAILY (DX: HYPOKALEMIA) 01/27/20 24 025 Inactive cephalexin 500 mg capsule RxNorm: 999039 Take 1 Capsule(s) Oral QID 12/17/19 24 024 Inactive cephalexin 500 mg capsule RxNorm: 324605 Take 1 Capsule(s) Oral QID 12/17/19 24 024 Inactive acetaminophen 500 mg tablet RxNorm: 691054 (MAX APAP:4GM/24HR) Take 1 Tablet(s) Oral TID as needed for pain 12/10/19 24 024 Inactive torsemide 20 mg tablet RxNorm: 379093 Take 1 Tablet(s) Oral QD 10/26/19 24 025 Inactive potassium chloride ER 20 mEq tablet,extended release RxNorm: 276530 Take 2 Tablet(s) Oral BID 10/26/19 24 025 Inactive torsemide 20 mg tablet RxNorm: 618862 Take 1 Tablet(s) Oral QD 10/26/19 24 024 Inactive potassium chloride ER 20 mEq tablet,extended release RxNorm: 624331 Take 2 Tablet(s) Oral BID 10/26/19 24 024 Inactive Artificial Tears (PF) 0.1 %-0.3 % drops in a dropperette RxNorm: 081188 Apply 1-2 Drop(s) Both eyes BID as needed 09/28/19 24 025 Inactive erythromycin 5 mg/gram (0.5 %) eye ointment RxNorm: 071845 Apply 1 Application Both eyes QHS every night at bedtime Instill ~1 cm ribbon into affected eye 09/28/19 24 024 Inactive Artificial Tears (PF) 0.1 %-0.3 % drops in a dropperette RxNorm: 053946 Apply 1-2 Drop(s) Both eyes BID as needed 09/28/19 24 024 Inactive erythromycin 5 mg/gram (0.5 %) eye ointment RxNorm: 720419 Apply 1 Application Both eyes QHS every night at bedtime Instill ~1 cm ribbon into affected eye 09/28/19 24 024 Inactive acetaminophen 500 mg tablet RxNorm: 530182 (MAX APAP:4GM/24HR) Take 1 Tablet(s) Oral TID as needed for pain 09/24/19 24 024 Inactive carvedilol 25 mg tablet RxNorm: 385098 Take 1 Tablet(s) Oral QD 09/08/19 24 No Stop Date Active pregabalin 100 mg capsule RxNorm: 711419 Take 1 Capsule(s) Oral QAM every morning 09/07/19 24 024 Inactive ezetimibe 10 mg tablet RxNorm: 009854 Take 1 Tablet(s) Oral QD 07/13/19 24 025 Inactive bisacodyl 10 mg rectal suppository RxNorm: 931166 Insert 1 Suppository Rectal QD as needed 07/13/19 24 No Stop Date Active polyethylene glycol 3350 17 gram/dose oral powder RxNorm: 054947 Take 17 Gram(s) Oral BID as needed mix in 4-8ox water 07/13/19 24 025 Inactive ketoconazole 2 % shampoo RxNorm: 928835 Apply 1 Application Topical UD as directed 07/13/19 No Stop Date Active Ozempic 1 mg/dose (4 mg/3 mL) subcutaneous pen injector RxNorm: 3984521 Inject 1 Milligram(s) Subcutaneous QW once a week 07/13/19 No Stop Date Active Guaifenesin AC 10 mg-100 mg/5 mL oral liquid RxNorm: 436251 Take 10 Milliliter(s) Oral Q4H every four hours as needed 07/13/19 No Stop Date Active ammonium lactate 12 % topical cream RxNorm: 818280 Apply 1 Application Topical BID 07/13/19 24 025 Inactive hydrocortisone 2.5 % topical cream RxNorm: 067088 Apply 1 Application Topical BID as needed 07/13/19 No Stop Date Active rosuvastatin 20 mg sprinkle capsule RxNorm: 3916481 Take 1 Capsule(s) Oral QD 07/13/19 24 025 Inactive rosuvastatin 40 mg tablet RxNorm: 711677 Take 1 Tablet(s) Oral QPM every evening 07/13/19 24 024 Inactive aripiprazole 15 mg tablet RxNorm: 268839 Take 1/2 Tablet(s) Oral QD 07/13/19 24 024 Inactive isosorbide mononitrate ER 60 mg tablet,extended release 24 hr RxNorm: 293549 Take 1 Tablet(s) Oral QD 07/13/19 24 024 Inactive Vascepa 1 gram capsule RxNorm: 9972130 Take 2 Capsule(s) Oral BID 07/13/19 24 024 Inactive venlafaxine ER 75 mg capsule,extended release 24 hr RxNorm: 904620 Take 3 Capsule(s) Oral QD 07/13/19 24 024 Inactive Basaglar KwikPen U-100 Insulin 100 unit/mL (3 mL) subcutaneous RxNorm: 2970138 Inject 30U SubQ twice daily 07/07/19 24 024 Inactive Please dispense one month supply. Basaglar KwikPen U-100 Insulin 100 unit/mL (3 mL) subcutaneous RxNorm: 7538814 Inject 30U SubQ twice daily 07/07/19 24 024 Inactive Please dispense one month supply. pregabalin 150 mg capsule RxNorm: 781092 Take 1 Capsule(s) Oral QHS every night at bedtime 07/05/19 24 024 Inactive pregabalin 150 mg capsule RxNorm: 436894 Take 1 Capsule(s) Oral QHS every night at bedtime 07/05/19 24 024 Inactive polyethylene glycol 3350 17 gram/dose oral powder RxNorm: 268126 Take 1 Packet Oral QD as needed (1 packet = 17g) mix with 4-8oz of liquid 06/15/19 24 024 Inactive bisacodyl 10 mg rectal suppository RxNorm: 183553 Insert one suppository per rectum once daily as needed for constipation 06/15/19 24 024 Inactive bisacodyl 10 mg rectal suppository RxNorm: 055981 Insert one suppository per rectum once daily as needed for constipation 06/15/19 24 024 Inactive pregabalin 100 mg capsule RxNorm: 767954 Take 1 Capsule(s) Oral QAM every morning 04/27/20 024 Inactive Levemir FlexPen 100 unit/mL (3 mL) solution subcutaneous insulin pen RxNorm: 133306 Inject 30 Unit(s) Subcutaneous BID 04/27/20 23 024 Inactive rosuvastatin 40 mg tablet RxNorm: 634161 Take 1 Tablet(s) Oral QPM every evening 04/16/20 024 Inactive D/C rosuvastatin 20mg venlafaxine ER 75 mg capsule,extended release 24 hr RxNorm: 436032 Take 3 Capsule(s) Oral QD 04/14/20 23 023 Inactive pregabalin 100 mg capsule RxNorm: 331780 Take 1 Capsule(s) Oral QAM every morning [...] strip clotrimazole 1 % topical cream RxNorm: 446201 Take apply topically to abdominal folds twice daily for 14 days 03/12/20 024 Inactive Ozempic 1 mg/dose (4 mg/3 mL) subcutaneous pen injector RxNorm: 9179612 Inject 1 Milligram(s) Subcutaneous QW once a week 03/11/20 23 023 Inactive rosuvastatin 20 mg tablet RxNorm: 583970 Take 1 Tablet(s) Oral QD 02/26/20 23 023 Inactive d/c pravastatin 80mg Ozempic 1 mg/dose (4 mg/3 mL) subcutaneous pen injector RxNorm: 0600091 Inject 1 Milligram(s) Subcutaneous QW once a week 02/20/20 23 023 Inactive pregabalin 150 mg capsule RxNorm: 230766 Take 1 Capsule(s) Oral HS at bed time 02/19/20 23 023 Inactive pregabalin 100 mg capsule RxNorm: 332026 Take 1 Capsule(s) Oral QAM every morning 02/18/20 23 023 Inactive venlafaxine ER 75 mg capsule,extended release 24 hr RxNorm: 384194 Take 3 Capsule(s) Oral QD 02/04/20 23 023 Inactive FreeStyle Chema 2 Sensor kit RxNorm: use as directed 02/04/20 23 023 Inactive FreeStyle Chema 2 Sensor kit RxNorm: use as directed 02/04/20 23 024 Inactive fluconazole 150 mg tablet RxNorm: 459819 Take 1 Tablet(s) Oral on day 3 and on day 6 02/03/20 23 024 Inactive venlafaxine ER 150 mg capsule,extended release 24 hr RxNorm: 996190 Take 1 Capsule(s) Oral QD 02/03/20 23 023 Inactive chlorthalidone 25 mg tablet RxNorm: 512726 Take 1 Tablet(s) Oral QAM every morning 02/03/20 23 024 Inactive acetaminophen 500 mg tablet RxNorm: 103323 1 TABLET ORALLY 3 TIMES DAILY (MAX APAP:4GM/24HR) 12/15/19 23 023 Inactive clotrimazole 1 % topical cream RxNorm: 921751 apply 1g topically to top of feet and in between toes BID 12/09/19 23 025 Inactive potassium chloride ER 20 mEq tablet,extended release RxNorm: 229092 Take 1 Tablet(s) Oral BID 12/09/19 024 Inactive d/c 20mEq once daily (sent from hospital) nystatin 100,000 unit/gram topical powder RxNorm: 395499 APPLY TO AFFECTED AREAS TOPICALLY 2 TIMES DAILY 11/21/19 23 023 Inactive Nystop 100,000 unit/gram topical powder RxNorm: 974317 Apply to abd folds, under breasts and L side of groin Topical BID x 14 days, then BID PRN 11/20/19 023 Inactive dx: yeast dermatitis [place] Ultra Strength 4 %-30 %-10 % topical cream RxNorm: 200624 Apply 1 Gram(s) Topical QID PRN to feet and legs for neuropathic pain 11/11/19 23 024 Inactive clotrimazole 1 % topical cream RxNorm: 579626 Apply 1/2 Gram(s) Topical BID Apply to affected areas of groin, periarea, and abdominal topically 2 times daily 11/10/19 23 023 Inactive hydrocortisone 2.5 % topical cream RxNorm: 947585 Apply 1/2 Gram(s) Topical BID as needed 11/10/19 23 024 Inactive Levemir FlexPen 100 unit/mL (3 mL) solution subcutaneous insulin pen RxNorm: 663881 Inject 30 Unit(s) Subcutaneous BID 10/07/19 23 023 Inactive Humulin R U-500 (Concentrated) Insulin 500 unit/mL subcutaneous soln RxNorm: 047082 Inject 100 Unit(s) Subcutaneous TID 10/07/19 23 024 Inactive Ozempic 0.25 mg or 0.5 mg (2 mg/3 mL) subcutaneous pen injector RxNorm: 6629636 Inject 1/2 Milligram(s) Subcutaneous QW once a week 10/07/19 024 Inactive aripiprazole 15 mg tablet RxNorm: 723099 /2 TAB (7.5MG) ORALLY DAILY (DX:MAJOR DEPRESSIVE DISORDER) 09/23/19 023 Inactive Accu-Chek Guide test strips RxNorm: Use 1 Test Strip QID 09/15/19 23 023 Inactive ok to substitute with any covered alternative test strip Lancets,Thin 28 gauge RxNorm: Use 1 as directed QID 09/15/19 023 Inactive torsemide 20 mg tablet RxNorm: 069988 Take 1 Tablet(s) Oral BID 09/09/19 024 Inactive d/c once daily dosing carvedilol 25 mg tablet RxNorm: 517865 Take 1 Tablet(s) Oral QD 08/25/19 23 024 Inactive pregabalin 150 mg capsule RxNorm: 994520 1 Capsule(s) Oral HS at bed time 08/18/19 23 023 Inactive pregabalin 100 mg capsule RxNorm: 627136 1 Capsule(s) Oral QAM every morning 08/18/19 023 Inactive carvedilol 25 mg tablet RxNorm: 946692 1 Tablet(s) Oral QD 07/28/19 023 Inactive lisinopril 20 mg tablet RxNorm: 267757 Give 1 Tablet(s) Oral QD 07/28/19 23 023 Inactive Lyrica 150 mg capsule RxNorm: 312086 Take 1 Capsule(s) Oral QHS every night at bedtime 07/19/19 23 023 Inactive d/c 100mg dose Diflucan 150 mg tablet RxNorm: 370065 Take 1 Tablet(s) Oral QD repeat on day 3 and 6 07/19/19 23 023 Inactive pregabalin 100 mg capsule RxNorm: 986812 Take 1 Capsule(s) Oral QAM every morning 07/19/19 23 023 Inactive gatifloxacin 0.5 % eye drops RxNorm: 628278 Instill 1 Drop(s) as directed TID Instill 1 drop in to affected eye(s) starting 1 day prior to surgery and continue until gone (do not exceed 4 weeks). 07/13/19 023 Inactive carvedilol 25 mg tablet RxNorm: 220161 2 Tablet(s) Oral BID 07/13/19 023 Inactive Humulin R Regular U-100 Insulin 100 unit/mL injection solution RxNorm: 435454 85 Unit(s) Injection TID 07/13/19 023 Inactive ketorolac 0.5 % eye drops RxNorm: 196452 Instill 1 Drop(s) as directed QID Instill 1 drop into affected eye(s) 4 times daily starting 1 day prior to surgery and continue until gone (do not exceed 4 weeks). 07/13/19 023 Inactive Diflucan 150 mg tablet RxNorm: 052646 Take 1 Tablet(s) Oral QD repeat on day 3 and 6 06/30/19 023 Inactive Accu-Chek Guide test strips RxNorm: Use 1 Test Strip QID Use 1 test strip to monitor blood glucose 4 times daily and as needed. Dx:E11.42. 06/23/19 023 Inactive ok to substitute with any covered alternative test strip dextromethorphan-gu aifenesin 10 mg-100 mg/5 mL oral liquid RxNorm: 793590 Take 10 Milliliter(s) Oral every 4 hours as needed for cough 06/19/19 023 Inactive dextromethorphan-gu aifenesin 10 mg-100 mg/5 mL oral liquid RxNorm: 126883 Take 10 Milliliter(s) Oral every 4 hours as needed for cough 06/19/19 023 Inactive Lyrica 150 mg capsule RxNorm: 701588 Take 1 Capsule(s) Oral QHS every night at bedtime 06/18/19 23 023 Inactive d/c 100mg dose aripiprazole 15 mg tablet RxNorm: 602094 1/2 TAB (7.5MG) ORALLY DAILY (DX:MAJOR DEPRESSIVE DISORDER) 06/05/19 23 023 Inactive pregabalin 100 mg capsule RxNorm: 879592 1 Capsule(s) Oral QAM every morning 06/02/19 023 Inactive Banophen 50 mg capsule RxNorm: 2692303 Take 1 Capsule(s) Oral Q6H every 6 hours as needed 05/19/19 No Stop Date Active Novolog Flexpen U-100 Insulin aspart 100 unit/mL (3 mL) subcutaneous RxNorm: 5197916 Inject 10 Unit(s) Subcutaneous QHS every night at bedtime with nighttime snack 04/08/20 022 Inactive Novolog Flexpen U-100 Insulin aspart 100 unit/mL (3 mL) subcutaneous RxNorm: 2506736 Inject 42 Unit(s) Subcutaneous TID in addition to sliding scale 04/08/20 022 Inactive d/c 36u albuterol sulfate HFA 90 mcg/actuation aerosol inhaler RxNorm: 2523380 Take 2 Puff(s) Inhalation Q4H every four hours as needed as needed for SOB, cough, or wheezing 04/07/20 030 Active Banophen 50 mg capsule RxNorm: 1676165 Take 1 Capsule(s) Oral Q6H every 6 hours as needed 04/06/20 023 Inactive diphenhydramine 50 mg tablet RxNorm: 2484102 Take 1 Tablet(s) Oral Q6H every 6 hours as needed 04/06/20 22 022 Inactive diphenhydramine 50 mg tablet RxNorm: 0067041 1 Tablet(s) Oral Q6H every 6 hours as needed 04/06/20 022 Inactive Abilify 15 mg tablet RxNorm: 745697 1/2 Tablet(s) Oral QD 03/10/20 22 023 Inactive Shingrix (PF) 50 mcg/0.5 mL intramuscular suspension, kit RxNorm: 8314384 Administer 1/2 Milliliter(s) Intramuscular QD one time shingrix step 2 ( step 1 given 11/04/21) WITH needle - Nursing please administer upon arrival and once administered post a bridge message with 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 administration, literacy teacher, expiration date, and lot# so we can update [facility] 02/18/20 22 022 Inactive dispense with needle Shingrix (PF) 50 mcg/0.5 mL intramuscular suspension, kit RxNorm: 2656227 Administer 1/2 Milliliter(s) Intramuscular QD one time shingrix step 2 ( step 1 given 11/04/21) WITH needle - Nursing please administer upon arrival and once administered post a bridge message with 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 of administration, literacy teacher, expiration date, and lot# so we can update [facility] 02/18/20 22 Inactive dispense with needle polyethylene glycol 3350 17 gram/dose oral powder RxNorm: 247932 Take 17=1 capful Gram(s) Oral QD mix with 4-8oz of liquid 01/08/20 22 025 Inactive take this in addition to BID prn order Lyrica 100 mg capsule RxNorm: 635858 Take 1 Capsule(s) Oral QAM every morning 01/08/20 22 022 Inactive d/c 50mg dose acetaminophen 500 mg tablet RxNorm: 905737 Take 1 Tablet(s) Oral TID 01/08/20 22 022 Inactive d/c PRN order Lyrica 150 mg capsule RxNorm: 822209 Take 1 Capsule(s) Oral QHS every night at bedtime 01/08/20 22 023 Inactive d/c 100mg dose Abilify 5 mg tablet RxNorm: 237871 Take 1 Tablet(s) Oral QD take 1 tab po QD #30 refill 5 dx: MDD 12/12/19 22 022 Inactive Abilify 5 mg tablet RxNorm: 359114 Take 1 Tablet(s) Oral QD take 1 tab po QD #30 refill 5 dx: MDD 12/12/19 22 022 Inactive Novolog Flexpen U-100 Insulin aspart 100 unit/mL (3 mL) subcutaneous RxNorm: 2575540 Inject 42 Unit(s) Subcutaneous TID in addition to sliding scale 12/10/19 22 022 Inactive d/c 36u chlorthalidone 25 mg tablet RxNorm: 775331 Take 1 Tablet(s) Oral QAM every morning 12/10/19 22 023 Inactive pregabalin 50 mg capsule RxNorm: 448984 Take 1 Capsule(s) Oral QAM every morning 11/12/19 22 Inactive tetanus-diphtheria toxoids-Td 2 Lf unit-2 Lf unit/0.5 mL IM suspension RxNorm: 139 Take 0.5 Miscellaneous Intramuscular 11/12/19 22 022 Inactive need tdap - nursing to administer upon arrival pregabalin 50 mg capsule RxNorm: 722972 Take 1 Capsule(s) Oral QAM every morning 10/16/19 22 022 Inactive pregabalin 50 mg capsule RxNorm: 344236 Take 1 Capsule(s) Oral QAM every morning 10/16/19 22 022 Inactive pregabalin 50 mg capsule RxNorm: 471199 1 Capsule(s) Oral QAM every morning 10/15/19 22 022 Inactive Shingrix (PF) 50 mcg/0.5 mL intramuscular suspension, kit RxNorm: 9342124 Administer 1/2 Milliliter(s) Intramuscular one time Nursing please administer upon arrival and once administered post a bridge message with date of administration, literacy teacher, expiration date, and lot# so we can update [facility]. 10/09/19 22 022 Inactive shingrix step 1 Shingrix (PF) 50 mcg/0.5 mL intramuscular suspension, kit RxNorm: 6689909 Administer 1/2 Milliliter(s) Intramuscular one time Nursing please administer upon arrival and once administered post a bridge message with date of administration, literacy teacher, expiration date, and lot# so we [...] aspart 100 unit/mL (3 mL) subcutaneous RxNorm: 7258646 Inject 10 Unit(s) Subcutaneous QHS every night at bedtime with nighttime snack 10/08/19 22 Inactive Shingrix (PF) 50 mcg/0.5 mL intramuscular suspension, kit RxNorm: 0421059 ADMINISTER 2-DOSE SERIES PER CDC GUIDELINES 10/08/19 22 Active Shingrix (PF) 50 mcg/0.5 mL intramuscular suspension, kit RxNorm: 3255125 ADMINISTER 2-DOSE SERIES PER CDC GUIDELINES 10/08/19 22 Inactive Novolog Flexpen U-100 Insulin aspart 100 unit/mL (3 mL) subcutaneous RxNorm: 3363123 Inject 36 Unit(s) Subcutaneous TID in addition to sliding scale 10/08/19 Inactive cholecalciferol (vitamin D3) 1,250 mcg (50,000 unit) capsule RxNorm: 101698 Take 1 Capsule(s) Oral QW once a week 10/08/19 024 Inactive Novofine Autocover 30 gauge x 1/3 needle RxNorm: Use 1 Miscellaneous UD as directed Use 1 needle as directed to administer insulin 5 times a day Dx:E11.42. 10/03/19 22 Inactive ok to substitute with any covered alternative pen needle benzoyl peroxide 10 % topical cleanser RxNorm: 296011 Apply 1 Application Topical QD apply to face, wash rinse and dry once daily (may change to QOD if drying) 08/19/19 22 022 Inactive (%covered by insurance) #60ml refill 11 dx: acne benzoyl peroxide 10 % topical cleanser RxNorm: 721325 Apply 1 Application Topical QD apply to face, wash rinse and dry once daily (may change to QOD if drying) 08/19/19 22 022 Inactive (%covered by insurance) #60ml refill 11 dx: acne benzoyl peroxide 10 % topical cleanser RxNorm: 818893 Apply 1 Application Topical QD apply to face, wash rinse and dry once daily (may change to QOD if drying) 08/19/19 22 022 Inactive (%covered by insurance) #60ml refill 11 dx: acne Lyrica 50 mg capsule RxNorm: 895415 Take 1 Capsule(s) Oral QAM every morning Take 1 capsule by mouth once daily 08/19/19 22 022 Inactive benzoyl peroxide 10 % topical cleanser RxNorm: 287394 Apply 1 Application Topical QD apply to face, wash rinse and dry once daily (may change to QOD if drying) 08/19/19 22 022 Inactive (%covered by insurance) #60ml refill 11 dx: acne Lyrica 100 mg capsule RxNorm: 926493 Take 1 Capsule(s) Oral QHS every night at bedtime Take 1 capsule by mouth once daily at bedtime 08/19/19 022 Inactive Lyrica 100 mg capsule RxNorm: 254850 Take 1 Capsule(s) Oral QHS every night at bedtime Take 1 capsule by mouth once daily at bedtime 08/16/19 22 022 Inactive Lyrica 50 mg capsule RxNorm: 021430 Take 1 Capsule(s) Oral QAM every morning Take 1 capsule by mouth once daily 08/16/19 22 Inactive Levemir FlexTouch U-100 Insulin 100 unit/mL (3 mL) subcutaneous pen RxNorm: 214068 Inject 86 Unit(s) Subcutaneous BID 08/05/19 22 022 Inactive d/c 83units BID Lyrica 100 mg capsule RxNorm: 132434 Take 1 Capsule(s) Oral QHS every night at bedtime Take 1 capsule by mouth once daily at bedtime 07/14/19 22 022 Inactive Lyrica 50 mg capsule RxNorm: 662838 Take 1 Capsule(s) Oral QAM every morning Take 1 capsule by mouth once daily 07/14/19 22 022 Inactive Levemir FlexTouch U-100 Insulin 100 unit/mL (3 mL) subcutaneous pen RxNorm: 985708 Inject 83 Unit(s) Subcutaneous BID 07/08/19 22 [...] test strip hydralazine 50 mg tablet RxNorm: 066434 Take 1 Tablet(s) Oral QID 05/05/20 21 022 Inactive venlafaxine ER 225 mg tablet,extended release 24 hr RxNorm: 071832 Take 1 Tablet(s) Oral QD 05/05/20 21 021 Inactive venlafaxine ER 225 mg tablet,extended release 24 hr RxNorm: 720377 Take 1 Tablet(s) Oral QD 05/05/20 21 022 Inactive isosorbide mononitrate ER 30 mg tablet,extended release 24 hr RxNorm: 921270 Take 1 Tablet(s) Oral QD 05/05/20 024 Inactive hydralazine 50 mg tablet RxNorm: 256171 Take 1 Tablet(s) Oral QID 05/05/20 21 021 Inactive aspirin 81 mg tablet,delayed release RxNorm: 120315 Take 1 Tablet(s) Oral QD 03/31/20 022 Inactive Vitamin D2 1,250 mcg (50,000 unit) capsule RxNorm: 1274027 Take 1 Capsule(s) Oral QW once a week x 12 weeks 03/31/20 022 Inactive Vitamin D2 1,250 mcg (50,000 unit) capsule RxNorm: 6432509 Take 1 Capsule(s) Oral QW once a week 03/31/20 021 Inactive Zetia 10 mg tablet RxNorm: 946298 Take 1 Tablet(s) Oral QD 03/31/20 024 Inactive Zetia 10 mg tablet RxNorm: 255244 Take 1 Tablet(s) Oral QD 03/31/20 021 Inactive hydralazine 25 mg tablet RxNorm: 508761 Take 1 Tablet(s) Oral QID 03/31/20 21 021 Inactive hydralazine 25 mg tablet RxNorm: 850236 Take 1 Tablet(s) Oral QID 03/31/20 021 Inactive hydralazine 10 mg tablet RxNorm: 081784 Take 1 Tablet(s) Oral QID 03/03/20 021 Inactive cephalexin 500 mg tablet RxNorm: 280131 Take 1 Tablet(s) Oral QID 02/27/20 021 Inactive cephalexin 500 mg tablet RxNorm: 375120 Take 1 Tablet(s) Oral QID 02/27/20 021 Inactive lisinopril 40 mg tablet RxNorm: 802275 Take 1 Tablet(s) Oral QD 02/11/20 21 023 Inactive Eliquis 5 mg tablet RxNorm: 7854172 Take 1 Tablet(s) Oral BID 01/05/20 21 025 Inactive Eliquis 5 mg tablet RxNorm: 5112032 Take 2 Tablet(s) Oral QD 01/01/20 21 021 Inactive Lyrica 50 mg capsule RxNorm: 520134 Take 1 Capsule(s) Oral QAM every morning 12/24/19 21 021 Inactive Lyrica 100 mg capsule RxNorm: 742615 Take 1 Capsule(s) Oral QHS every night at bedtime 12/24/19 21 021 Inactive clotrimazole 1 % topical cream RxNorm: 063546 Apply to right foot and toes Topical BID 12/04/19 21 023 Inactive metoprolol succinate ER 200 mg tablet,extended release 24 hr RxNorm: 214329 Take 1 Tablet(s) Oral QD 12/04/19 21 023 Inactive ciprofloxacin 500 mg tablet RxNorm: 468239 Take 1 Tablet(s) Oral QD 11/30/19 21 021 Inactive DX ofloxacin otic drops Accu-Chek Guide test strips RxNorm: USE 1 TO CHECK GLUCOSE 4 TIMES DAILY AND NEEDED 11/15/19 21 023 Inactive Blood Glucose Test strips RxNorm: Use 1 Test Strip QID at PRN 11/05/19 21 023 Inactive E11.42 lisinopril 30 mg tablet RxNorm: 990673 Take 1 Tablet(s) Oral QD 10/30/19 21 021 Inactive lisinopril 20 mg tablet RxNorm: 104698 Take 1 Tablet(s) Oral QD 10/23/19 21 021 Inactive lisinopril 20 mg tablet RxNorm: 947885 Take 1 Tablet(s) Oral QD 10/23/19 21 021 Inactive lisinopril 10 mg tablet RxNorm: 293125 Take 1 Tablet(s) Oral QD 10/02/19 21 021 Inactive icosapent ethyl 1 gram capsule RxNorm: 9154142 Take 2 Capsule(s) (2 gm) Oral BID with meals 09/12/19 21 024 Inactive Okay to dispense one 2gm tab if you have that available. icosapent ethyl 1 gram capsule RxNorm: 1567076 Take 2 Capsule(s) Oral BID 09/12/19 21 021 Inactive Okay to dispense one 2gm tab if you have that available. amlodipine 10 mg tablet RxNorm: 237126 Take 1 Tablet(s) Oral QD 09/04/19 21 021 Inactive aspirin 81 mg tablet,delayed release RxNorm: 215669 Take 1 Tablet(s) Oral QD 09/04/19 21 021 Inactive Levemir FlexTouch U-100 Insulin 100 unit/mL (3 mL) subcutaneous pen RxNorm: 591541 Inject 150 Unit(s) Subcutaneous BID 09/04/19 21 022 Inactive venlafaxine ER 150 mg tablet,extended release 24 hr RxNorm: 149150 Take 1 Tablet(s) Oral QD 09/04/19 21 021 Inactive clotrimazole-betame thasone 1 %-0.05 % topical cream RxNorm: 699421 Apply to rash on red area on left abdomen/chest Topical BID 08/10/19 21 021 Inactive amlodipine 5 mg tablet RxNorm: 848310 Take 1 Tablet(s) Oral QD 07/31/19 21 021 Inactive cephalexin 500 mg tablet RxNorm: 813922 Take 1 Tablet(s) Oral BID BID - Twice Daily 07/31/19 21 021 Inactive Start 08/01/20 pantoprazole 40 mg tablet,delayed release RxNorm: 737523 Take 1 Tablet(s) Oral QAM every morning 07/08/19 025 Inactive senna 8.6 mg tablet RxNorm: 705604 Take 1 Tablet(s) Oral QD 07/08/19 21 025 Inactive carbamazepine 200 mg tablet RxNorm: 211907 Take 1 Tablet(s) Oral BID 07/08/19 21 025 Inactive clopidogrel 75 mg tablet RxNorm: 681477 Take 1 Tablet(s) Oral QD 07/08/19 21 021 Inactive Blood Glucose Test strips RxNorm: Use 1 Test Strip QID at PRN 07/08/19 21 021 Inactive E11.42 Novolog Flexpen U-100 Insulin aspart 100 unit/mL (3 mL) subcutaneous RxNorm: 4504103 Administer per sliding scale Milliliter(s) Subcutaneous TID 151-200: 10 u; 201-250: 20 u; 251-300: 30 u; 301-350: 40 u; 351-400: 50 u. 07/08/19 022 Inactive lisinopril 5 mg tablet RxNorm: 687759 Take 1 Tablet(s) Oral QD 07/08/19 021 Inactive Novolog Flexpen U-100 Insulin aspart 100 unit/mL (3 mL) subcutaneous RxNorm: 7772365 Inject 85 Unit(s) Subcutaneous TID 07/08/19 022 Inactive pravastatin 80 mg tablet RxNorm: 917955 Take 1 Tablet(s) Oral QHS every night at bedtime 07/08/19 023 Inactive clotrimazole 1 % topical cream RxNorm: 316925 Apply to bilateral groin areas Topical BID 07/08/19 022 Inactive metoprolol succinate ER 200 mg tablet,extended release 24 hr RxNorm: 247165 Take 1 Tablet(s) Oral QD 07/08/19 021 Inactive Vitamin D3 25 mcg (1,000 unit) tablet RxNorm: 576224 Take 1 Tablet(s) Oral QD 07/08/19 021 Inactive isosorbide dinitrate 30 mg tablet RxNorm: 915051 Take 1 Tablet(s) Oral QD 07/08/19 021 Inactive Levemir FlexTouch U-100 Insulin 100 unit/mL (3 mL) subcutaneous pen RxNorm: 194148 Inject 140 Unit(s) Subcutaneous BID 07/08/19 021 Inactive torsemide 20 mg tablet RxNorm: 967115 Take 1 Tablet(s) Oral QD 07/08/19 023 Inactive venlafaxine 75 mg tablet RxNorm: 834518 Take 1 Tablet(s) Oral QD 07/08/19 021 Inactive acetaminophen 500 mg tablet RxNorm: 501401 Take 1 Tablet(s) Oral TID as needed for headache 06/18/19 021 Inactive acetaminophen 500 mg tablet RxNorm: 694306 Take 1 Tablet(s) Oral TID as needed for headache 06/18/19 21 021 Inactive Lyrica 100 mg capsule RxNorm: 142957 Take 1 Capsule(s) Oral QHS every night at bedtime 06/11/19 21 021 Inactive Lyrica 50 mg capsule RxNorm: 679043 Take 1 Capsule(s) Oral QAM every morning 06/10/19 21 021 Inactive hydrocortisone 2.5 % topical cream RxNorm: 027537 Apply to bilateral groin creases Topical BID 05/15/20 20 021 Inactive clotrimazole 1 % topical cream RxNorm: 802375 Apply to bilateral groin areas Topical BID 05/15/20 20 021 Inactive Lyrica 50 mg capsule RxNorm: 717963 Take 1 Capsule(s) Oral QAM every morning 05/14/20 20 020 Inactive Lyrica 100 mg capsule RxNorm: 950883 Take 1 Capsule(s) Oral QHS every night [...] Inactive Nystop 100,000 unit/gram topical powder RxNorm: 878754 Apply to abd folds, under breasts and L side of groin Topical BID x 14 days, then BID PRN 04/08/20 20 020 Inactive dx: yeast dermatitis Lyrica 100 mg capsule RxNorm: 505795 Take 1 Capsule(s) Oral QHS every night at bedtime 03/13/20 20 Inactive Lyrica 50 mg capsule RxNorm: 761987 Take 1 Capsule(s) Oral QAM every morning 03/13/20 20 Inactive ketoconazole 2 % shampoo RxNorm: 265184 Apply Topical two times a week with showers 03/11/20 20 024 Inactive cholecalciferol (vitamin D3) 50 mcg (2,000 unit) tablet RxNorm: 878869 Take 1 Tablet(s) Oral QD 03/11/20 20 021 Inactive Zetia 10 mg tablet RxNorm: 160011 Take 1 Tablet(s) Oral QD 03/07/20 20 021 Inactive Zetia 10 mg tablet RxNorm: 866784 Take 1 Tablet(s) Oral QD 03/07/20 20 Inactive Lyrica 50 mg capsule RxNorm: 724002 Take 1 Capsule(s) Oral QAM every morning 02/15/20 20 Inactive Lyrica 100 mg capsule RxNorm: 426085 Take 1 Capsule(s) Oral QHS every night at bedtime 02/15/20 20 Inactive Lyrica 100 mg capsule RxNorm: 454209 Take 1 Capsule(s) Oral QHS every night at bedtime 02/15/20 20 Inactive Lyrica 50 mg capsule RxNorm: 864361 Take 1 Capsule(s) Oral QAM every morning 02/15/20 20 Inactive metoprolol succinate ER 200 mg tablet,extended release 24 hr RxNorm: 108794 Take 1 Tablet(s) Oral QD 08/12/19 23 025 Inactive loperamide 2 mg capsule RxNorm: 652772 Take 1 Capsule(s) Oral QID as needed 09/06/19 25 025 Inactive hydralazine 50 mg tablet RxNorm: 762472 Take 1 Tablet(s) Oral QID 08/12/19 23 025 Inactive Soft Touch Lancets RxNorm: miscellaneous 03/04/20 24 025 Inactive venlafaxine ER 75 mg capsule,extended release 24 hr RxNorm: 598861 Take 3 Capsule(s) Oral QD 06/12/19 22 023 Inactive polyethylene glycol 3350 17 gram/dose oral powder RxNorm: 903305 Take 17=1 capful Gram(s) Oral BID as needed mix with 4-8oz of liquid 06/12/19 024 Inactive icosapent ethyl 1 gram capsule RxNorm: 7621159 Take 2 Capsule(s) (2 gm) Oral BID with meals 10/07/19 23 023 Inactive Okay to dispense one 2gm tab if you have that available. Levemir FlexTouch U-100 Insulin 100 unit/mL (3 mL) subcutaneous pen RxNorm: 242594 Inject 80 Unit(s) Subcutaneous BID 07/14/19 23 023 Inactive Novolog Flexpen U-100 Insulin aspart 100 unit/mL (3 mL) subcutaneous RxNorm: 1000868 Insert 30 Unit(s) Subcutaneous TID with meals [...] [facility] [address] [id number] [place]ReferralAppointment Utvyzemcp10/06/2025Referral: [facility]/Endocrinology WPtel: [address] [facility] [address] [id number] USReferralNo Records Qkquplvu56/24/2025Referral: [facility] WPtel: [phone] [facility] [address] [id number] USReferralRecords Jmsusczr59/08/2023Referral: [facility] WPtel: [address] [facility] [address] [id number]/12/2022Referral: General CardiologyReferralCompleted 1Referral: General PsychologistReferralClosedReferral: General PsychiatristReferralPatient/Family Scheduling AppointmentReferral: General Physical MedicineReferralFacility Scheduling Appointment Instructions Comment Date Leonid is a Male being seen living at [facility]. Initial [facility] visit 01/2020. PMHx including DMII, CAD w/ 5 stents, Depression, Seizure Disorder and CKD stage 3. He moved into [facility] in 12/2019 but after a hospitalization 05/2021 he moved to the [facility] to have closer nursing attention. Sister Jyotsna involved in his care cell# [phone] Guardian: Giulia (tapan met in person 09/01/21), [...] 05.26.2024 with Jessa Webster MD at [facility]. Start Pioglitazone 15 mg QD. Stop Basaglar insulin. Increase Ozempic 2 mg once wkly. Continue Humalin R U-500 100 units with meals TID. FOLLOW UP 2 MONTHS. If BG >400 add 50 units to next scheduled dose of Humalin R U 500 insulin 06/12/2024
--- OUTSIDE RECORDS SUMMARY | 2024-10-19 18:33 | XMS_ITS | CCD ---
Author Name Cecilio Durham Address [address] [facility] [address] [place] [address] Phone Organization [facility] Phone Care Team Providers Care Amplifier Mechanic Name Role Phone Harrison Durham Primary Care Provider Leona vailable Unavailable Chronic Care Management Unavaila ble Summary Purpose DataExchange Insurance Providers Payer name Policy type / Coverage type Covered constitution party ID Effective Begin Date Effective End Date [place] Part B [id number] Unknown Unknown [place] Medicare Part B [id number] Unknown Unknown Family history Sister Brittany Suggs Diagnosis Age At Onset No Family Disease Entered N/A Runs in the family Diagnosis Age At Onset No Known Diseases N/A Sister Blanka Mcduffie Diagnosis Age At Onset No Family Disease Entered N/A Social History Social History Element Codes Description Effec tive Dates Tobacco history SNOMED CT: 502412837 Never smoker 01/16 Sexually Active? Unknown No [...] Snf 09/03/19 [address]: 005123115 No Alcohol Consum ption 09/02/2020 Allergies, Adverse Reactions, Alerts Substance Reaction Codes Entered Date Inactivated Date Status * NO KNOWN FOOD ALLERGIES Oheidkp9207/13/2023No Inactive DateActiveLISINOPRILRxNorm: 766212502/12/2020No Inactive DateActiveMetformin APwPzxmbbz46/28/2020No Inactive DateActive* NO KNOWN ENVIRONMENTAL OFXDRBRRSTfyjapj71/27/2024No Inactive DateActive Problems Condition Codes Effective Dates [...] planning - to document end of life yqghnljgscgFnrbsyk69/24/2024ctiveAdvance care planningICD-10: Z71.89 ICD-9: V65.4909ctiveAmputated toe of [...] E55.9 ICD-9: 268.909/ctiveCallus of heelICD-10: L84 ICD-9: 85778/esolvedGout due to renal impairmentICD-10: M10.30 ICD-9: 274.1005/esolvedHyperhidrosis of palmsICD-10: L74.512 ICD-9: 705.21010/12/2023esolvedHyperlipidemia, unspecifiedICD-10: E78.5 ICD-9: 272.405/esolvedOther halfway (current) drug therapyICD-10: Z79.899 ICD-9: V58.6905esolvedPain [...] tagICD-10: L91.8 ICD-9: 701.904/esolvedCoronary artery disease involving [place] coronary artery of [place] heart, angina presence unspecifiedICD-10: I25.10 ICD-9: 414.0102/ctiveInappropriate sexual behaviorICD-10: Z72.89 ICD-9: 312.8910/ctivePre-op evaluationICD-10: Z01.818 ICD-9: V72.8403/ctiveSecondary hypertensionICD-10: I15.9 ICD-9: 405.9903/3ActiveDepressionICD-10: F32.9 ICD-9: 79326/esolvedDVT (deep venous thrombosis)ICD-10: I82.409 ICD-9: 453.4009/esolvedEncounter for [...] to other viral communicable diseasesICD-10: Z20.828 ICD-9: V01.7902/5405VzqynimoGerkisxbOscploy22/28/2020ActiveDiabetes mellitus Type 5Dqvjuin07/28/2020ActiveAnemia in chronic kidney diseaseICD-10: D63.1 02/12/2020ResolvedHyperlipidemia, unspecifiedICD-10: E78.Resolved Medications Medication Codes Instructions Start Date Stop Date Status Fill Instructions nystatin 100,000 unit/gram topical powder RxNorm: 774860 Apply 1 Application Topical BID as needed abdominal/breast /groin folds 11/ Inactive chlorthalidone 25 mg tablet RxNorm: 058289 Take 1 Tablet(s) Oral QAM every morning 04/06/20 No Stop Date Active pregabalin 150 mg capsule RxNorm: 073588 Take 1 Capsule(s) Oral QHS every night at bedtime 03/31/20 Inactive Vascepa 1 gram capsule RxNorm: 3247355 Take 2 Capsule(s) Oral BID 03/30/20 Active rosuvastatin 40 mg tablet RxNorm: 983641 1 TAB ORALLY EVERY EVENING (DX:CORONARY ARTERY DISEASE) 03/28/20 No Stop Date Active venlafaxine ER 75 mg capsule,extended release 24 hr RxNorm: 441762 3 CAPS (225MG) ORALLY DAILY (DX: MOOD DISORDER) 03/28/20 No Stop Date Active pregabalin 100 mg capsule RxNorm: 085062 Take 1 Capsule(s) Oral QAM every morning 03/20/20 Inactive cholecalciferol (vitamin D3) 1,250 mcg (50,000 unit) capsule RxNorm: 981780 Take 1 Capsule(s) Oral QW once a [...] Insulin 100 unit/mL (3 mL) subcutaneous RxNorm: 9808888 Inject 40 Unit(s) Subcutaneous BID 03/07/20 025 Inactive Please dispense one month supply. Humulin R U-500 (Concentrated) Insulin 500 unit/mL subcutaneous soln RxNorm: 246581 Inject 100 Unit(s) Subcutaneous AC before meals [...] PRN) to be use with new Accu [place] meter 03/04/20 Inactive ok to substitute with any covered alternative test strip FreeStyle Chema 2 Sensor kit RxNorm: Use UD as directed 03/02/20 025 Inactive FreeStyle Chema 2 Sensor kit RxNorm: Use UD as directed 03/02/20 Inactive Pen Needle 30 gauge x 09/29 RxNorm: Pen(s) Use 1 needle as directed TID 03/02/20 Inactive nystatin 100,000 unit/gram topical powder RxNorm: 863202 Apply 1 Application Topical BID as needed [...] (Concentrated) Insulin 500 unit/mL subcutaneous soln RxNorm: 318907 Inject 100 Unit(s) Subcutaneous TID 02/17/20 24 024 Inactive Humulin R U-500 (Concentrated) Insulin 500 unit/mL subcutaneous soln RxNorm: 460085 Inject 100 Unit(s) Subcutaneous TID 02/10/20 24 024 Inactive Tusharaglar ZaPen U-100 Insulin 100 unit/mL (3 mL) subcutaneous RxNorm: 4560639 Inject 30 Unit(s) Subcutaneous BID 02/10/20 24 024 Inactive Please dispense one month supply. pregabalin 100 mg capsule RxNorm: 783481 Take 1 Capsule(s) Oral QAM every morning 02/07/20 024 Inactive isosorbide mononitrate ER 60 mg tablet,extended release 24 hr RxNorm: 397266 Take 1 Tablet(s) Oral QD 02/01/20 24 025 Active aripiprazole 15 mg tablet RxNorm: 570977 Take 1/2 Tablet(s) Oral QD 02/01/20 24 025 Active torsemide 20 mg tablet RxNorm: 036614 1 TAB ORALLY DAILY (DX: EDEMA) 01/27/20 No Stop Date Active potassium chloride ER 20 mEq tablet,extended release(part/cryst) RxNorm: 7508738 2 TABS (40MEQ) ORALLY TWICE DAILY (DX: HYPOKALEMIA) 01/27/20 24 025 Inactive cephalexin 500 mg capsule RxNorm: 442971 Take 1 Capsule(s) Oral QID 12/17/19 24 024 Inactive cephalexin 500 mg capsule RxNorm: 353639 Take 1 Capsule(s) Oral QID 12/17/19 24 024 Inactive acetaminophen 500 mg tablet RxNorm: 042957 (MAX APAP:4GM/24HR) Take 1 Tablet(s) Oral TID as needed for pain 12/10/19 24 024 Inactive torsemide 20 mg tablet RxNorm: 412006 Take 1 Tablet(s) Oral QD 10/26/19 24 025 Inactive potassium chloride ER 20 mEq tablet,extended release RxNorm: 546888 Take 2 Tablet(s) Oral BID 10/26/19 24 Inactive torsemide 20 mg tablet RxNorm: 112897 Take 1 Tablet(s) Oral QD 10/26/19 24 Inactive potassium chloride ER 20 mEq tablet,extended release RxNorm: 893961 Take 2 Tablet(s) Oral BID 10/26/19 24 024 Inactive Artificial Tears (PF) 0.1 %-0.3 % drops in a dropperette RxNorm: 458626 Apply 1-2 Drop(s) Both eyes BID as needed 09/28/19 24 Inactive erythromycin 5 mg/gram (0.5 %) eye ointment RxNorm: 008796 Apply 1 Application Both eyes QHS every night at bedtime Instill ~1 cm ribbon into affected eye 09/28/19 24 024 Inactive Artificial Tears (PF) 0.1 %-0.3 % drops in a dropperette RxNorm: 519947 Apply 1-2 Drop(s) Both eyes BID as needed 09/28/19 24 024 Inactive erythromycin 5 mg/gram (0.5 %) eye ointment RxNorm: 056679 Apply 1 Application Both eyes QHS every night at bedtime Instill ~1 cm ribbon into affected eye 09/28/19 24 Inactive acetaminophen 500 mg tablet RxNorm: 062558 (MAX APAP:4GM/24HR) Take 1 Tablet(s) Oral TID as needed for pain 09/24/19 024 Inactive carvedilol 25 mg tablet RxNorm: 876676 Take 1 Tablet(s) Oral QD 09/08/19 24 No Stop Date Active pregabalin 100 mg capsule RxNorm: 844659 Take 1 Capsule(s) Oral QAM every morning 09/07/19 24 024 Inactive ezetimibe 10 mg tablet RxNorm: 593798 Take 1 Tablet(s) Oral QD 07/13/19 24 025 Inactive bisacodyl 10 mg rectal suppository RxNorm: 356436 Insert 1 Suppository Rectal QD as needed 07/13/19 24 No Stop Date Active polyethylene glycol 3350 17 gram/dose oral powder RxNorm: 566300 Take 17 Gram(s) Oral BID as needed mix in 4-8ox water 07/13/19 24 025 Inactive ketoconazole 2 % shampoo RxNorm: 416525 Apply 1 Application Topical UD as directed 07/13/19 No Stop Date Active Ozempic 1 mg/dose (4 mg/3 mL) subcutaneous pen injector RxNorm: 6768265 Inject 1 Milligram(s) Subcutaneous QW once a week 07/13/19 No Stop Date Active Guaifenesin AC 10 mg-100 mg/5 mL oral liquid RxNorm: 501286 Take 10 Milliliter(s) Oral Q4H every four hours as needed 07/13/19 No Stop Date Active ammonium lactate 12 % topical cream RxNorm: 120119 Apply 1 Application Topical BID 07/13/19 24 025 Inactive hydrocortisone 2.5 % topical cream RxNorm: 498398 Apply 1 Application Topical BID as needed 07/13/19 No Stop Date Active rosuvastatin 20 mg sprinkle capsule RxNorm: 4499241 Take 1 Capsule(s) Oral QD 07/13/19 24 025 Inactive rosuvastatin 40 mg tablet RxNorm: 395461 Take 1 Tablet(s) Oral QPM every evening 07/13/19 24 024 Inactive aripiprazole 15 mg tablet RxNorm: 406929 Take 1/2 Tablet(s) Oral QD 07/13/19 24 024 Inactive isosorbide mononitrate ER 60 mg tablet,extended release 24 hr RxNorm: 576067 Take 1 Tablet(s) Oral QD 07/13/19 24 024 Inactive Vascepa 1 gram capsule RxNorm: 3246605 Take 2 Capsule(s) Oral BID 07/13/19 24 024 Inactive venlafaxine ER 75 mg capsule,extended release 24 hr RxNorm: 588456 Take 3 Capsule(s) Oral QD 07/13/19 24 024 Inactive Basagldestin Enrique U-100 Insulin 100 unit/mL (3 mL) subcutaneous RxNorm: 5151551 Inject 30U SubQ twice daily 07/07/19 24 024 Inactive Please dispense one month supply. Basagldestin EugeneikPen U-100 Insulin 100 unit/mL (3 mL) subcutaneous RxNorm: 4099976 Inject 30U SubQ twice daily 07/07/19 24 024 Inactive Please dispense one month supply. pregabalin 150 mg capsule RxNorm: 820484 Take 1 Capsule(s) Oral QHS every night at bedtime 07/05/19 24 024 Inactive pregabalin 150 mg capsule RxNorm: 687828 Take 1 Capsule(s) Oral QHS every night at bedtime 07/05/19 24 024 Inactive polyethylene glycol 3350 17 gram/dose oral powder RxNorm: 731755 Take 1 Packet Oral QD as needed (1 packet = 17g) mix with 4-8oz of liquid 06/15/19 24 024 Inactive bisacodyl 10 mg rectal suppository RxNorm: 143963 Insert one suppository per rectum once daily as needed for constipation 06/15/19 24 024 Inactive bisacodyl 10 mg rectal suppository RxNorm: 900965 Insert one suppository per rectum once daily as needed for constipation 06/15/19 24 024 Inactive pregabalin 100 mg capsule RxNorm: 389625 Take 1 Capsule(s) Oral QAM every morning 04/27/20 23 024 Inactive Levemir FlexPen 100 unit/mL (3 mL) solution subcutaneous insulin pen RxNorm: 732327 Inject 30 Unit(s) Subcutaneous BID 04/27/20 23 024 Inactive rosuvastatin 40 mg tablet RxNorm: 694684 Take 1 Tablet(s) Oral QPM every evening 04/16/20 23 024 Inactive D/C rosuvastatin 20mg venlafaxine ER 75 mg capsule,extended release 24 hr RxNorm: 013657 Take 3 Capsule(s) Oral QD 04/14/20 23 023 Inactive pregabalin 100 mg capsule RxNorm: 771538 Take 1 Capsule(s) Oral QAM every morning [...] strip clotrimazole 1 % topical cream RxNorm: 885259 Take apply topically to abdominal folds twice daily for 14 days 03/12/20 23 024 Inactive Ozempic 1 mg/dose (4 mg/3 mL) subcutaneous pen injector RxNorm: 8226890 Inject 1 Milligram(s) Subcutaneous QW once a week 03/11/20 023 Inactive rosuvastatin 20 mg tablet RxNorm: 693467 Take 1 Tablet(s) Oral QD 02/26/20 23 023 Inactive d/c pravastatin 80mg Ozempic 1 mg/dose (4 mg/3 mL) subcutaneous pen injector RxNorm: 8434727 Inject 1 Milligram(s) Subcutaneous QW once a week 02/20/20 23 023 Inactive pregabalin 150 mg capsule RxNorm: 756699 Take 1 Capsule(s) Oral HS at bed time 02/19/20 23 023 Inactive pregabalin 100 mg capsule RxNorm: 817467 Take 1 Capsule(s) Oral QAM every morning 02/18/20 23 023 Inactive venlafaxine ER 75 mg capsule,extended release 24 hr RxNorm: 170712 Take 3 Capsule(s) Oral QD 02/04/20 23 023 Inactive FreeStyle Chema 2 Sensor kit RxNorm: use as directed 02/04/20 23 023 Inactive FreeStyle Chema 2 Sensor kit RxNorm: use as directed 02/04/20 23 024 Inactive fluconazole 150 mg tablet RxNorm: 931223 Take 1 Tablet(s) Oral on day 3 and on day 6 02/03/20 23 024 Inactive venlafaxine ER 150 mg capsule,extended release 24 hr RxNorm: 512059 Take 1 Capsule(s) Oral QD 02/03/20 23 023 Inactive chlorthalidone 25 mg tablet RxNorm: 994492 Take 1 Tablet(s) Oral QAM every morning 02/03/20 23 024 Inactive acetaminophen 500 mg tablet RxNorm: 460677 1 TABLET ORALLY 3 TIMES DAILY (MAX APAP:4GM/24HR) 12/15/19 23 023 Inactive clotrimazole 1 % topical cream RxNorm: 063272 apply 1g topically to top of feet and in between toes BID 12/09/19 23 025 Inactive potassium chloride ER 20 mEq tablet,extended release RxNorm: 438840 Take 1 Tablet(s) Oral BID 12/09/19 23 024 Inactive d/c 20mEq once daily (sent from hospital) nystatin 100,000 unit/gram topical powder RxNorm: 766518 APPLY TO AFFECTED AREAS TOPICALLY 2 TIMES DAILY 11/21/19 23 023 Inactive Nystop 100,000 unit/gram topical powder RxNorm: 856125 Apply to abd folds, under breasts and L side of groin Topical BID x 14 days, then BID PRN 11/20/19 23 023 Inactive dx: yeast dermatitis [place] Ultra Strength 4 %-30 %-10 % topical cream RxNorm: 912224 Apply 1 Gram(s) Topical QID PRN to feet and legs for neuropathic pain 11/11/19 23 024 Inactive clotrimazole 1 % topical cream RxNorm: 379251 Apply 1/2 Gram(s) Topical BID Apply to affected areas of groin, periarea, and abdominal topically 2 times daily 11/10/19 23 023 Inactive hydrocortisone 2.5 % topical cream RxNorm: 250263 Apply 1/2 Gram(s) Topical BID as needed 11/10/19 23 024 Inactive Levemir FlexPen 100 unit/mL (3 mL) solution subcutaneous insulin pen RxNorm: 073708 Inject 30 Unit(s) Subcutaneous BID 10/07/19 23 023 Inactive Humulin R U-500 (Concentrated) Insulin 500 unit/mL subcutaneous soln RxNorm: 588851 Inject 100 Unit(s) Subcutaneous TID 10/07/19 024 Inactive Ozempic 0.25 mg or 0.5 mg (2 mg/3 mL) subcutaneous pen injector RxNorm: 9554272 Inject 1/2 Milligram(s) Subcutaneous QW once a week 10/07/19 024 Inactive aripiprazole 15 mg tablet RxNorm: 608859 1/2 TAB (7.5MG) ORALLY DAILY (DX:MAJOR DEPRESSIVE DISORDER) 09/23/19 023 Inactive Accu-Chek Guide test strips RxNorm: Use 1 Test Strip QID 09/15/19 023 Inactive ok to substitute with any covered alternative test strip Lancets,Thin 28 gauge RxNorm: Use 1 as directed QID 09/15/19 023 Inactive torsemide 20 mg tablet RxNorm: 632787 Take 1 Tablet(s) Oral BID 09/09/19 024 Inactive d/c once daily dosing carvedilol 25 mg tablet RxNorm: 500022 Take 1 Tablet(s) Oral QD 08/25/19 23 024 Inactive pregabalin 150 mg capsule RxNorm: 791620 1 Capsule(s) Oral HS at bed time 08/18/19 023 Inactive pregabalin 100 mg capsule RxNorm: 251989 1 Capsule(s) Oral QAM every morning 08/18/19 023 Inactive carvedilol 25 mg tablet RxNorm: 410723 1 Tablet(s) Oral QD 07/28/19 023 Inactive lisinopril 20 mg tablet RxNorm: 078558 Give 1 Tablet(s) Oral QD 07/28/19 23 023 Inactive Lyrica 150 mg capsule RxNorm: 709179 Take 1 Capsule(s) Oral QHS every night at bedtime 07/19/19 023 Inactive d/c 100mg dose Diflucan 150 mg tablet RxNorm: 938682 Take 1 Tablet(s) Oral QD repeat on day 3 and 6 07/19/19 23 023 Inactive pregabalin 100 mg capsule RxNorm: 398936 Take 1 Capsule(s) Oral QAM every morning 07/19/19 23 023 Inactive gatifloxacin 0.5 % eye drops RxNorm: 808825 Instill 1 Drop(s) as directed TID Instill 1 drop in to affected eye(s) starting 1 day prior to surgery and continue until gone (do not exceed 4 weeks). 07/13/19 23 023 Inactive carvedilol 25 mg tablet RxNorm: 088919 2 Tablet(s) Oral BID 07/13/19 23 023 Inactive Humulin R Regular U-100 Insulin 100 unit/mL injection solution RxNorm: 211997 85 Unit(s) Injection TID 07/13/19 23 023 Inactive ketorolac 0.5 % eye drops RxNorm: 081509 Instill 1 Drop(s) as directed QID Instill 1 drop into affected eye(s) 4 times daily starting 1 day prior to surgery and continue until gone (do not exceed 4 weeks). 07/13/19 023 Inactive Diflucan 150 mg tablet RxNorm: 792634 Take 1 Tablet(s) Oral QD repeat on day 3 and 6 06/30/19 23 023 Inactive Accu-Chek Guide test strips RxNorm: Use 1 Test Strip QID Use 1 test strip to monitor blood glucose 4 times daily and as needed. Dx:E11.42. 06/23/19 23 023 Inactive ok to substitute with any covered alternative test strip dextromethorphan-gu aifenesin 10 mg-100 mg/5 mL oral liquid RxNorm: 980862 Take 10 Milliliter(s) Oral every 4 hours as needed for cough 06/19/19 23 023 Inactive dextromethorphan-gu aifenesin 10 mg-100 mg/5 mL oral liquid RxNorm: 475458 Take 10 Milliliter(s) Oral every 4 hours as needed for cough 06/19/19 23 023 Inactive Lyrica 150 mg capsule RxNorm: 132409 Take 1 Capsule(s) Oral QHS every night at bedtime 06/18/19 23 023 Inactive d/c 100mg dose aripiprazole 15 mg tablet RxNorm: 775897 1/2 TAB (7.5MG) ORALLY DAILY (DX:MAJOR DEPRESSIVE DISORDER) 06/05/19 023 Inactive pregabalin 100 mg capsule RxNorm: 728132 1 Capsule(s) Oral QAM every morning 06/02/19 023 Inactive Banophen 50 mg capsule RxNorm: 6349836 Take 1 Capsule(s) Oral Q6H every 6 hours as needed 05/19/19 No Stop Date Active Novolog Flexpen U-100 Insulin aspart 100 unit/mL (3 mL) subcutaneous RxNorm: 9194471 Inject 10 Unit(s) Subcutaneous QHS every night at bedtime with nighttime snack 04/08/20 022 Inactive Novolog Flexpen U-100 Insulin aspart 100 unit/mL (3 mL) subcutaneous RxNorm: 0049569 Inject 42 Unit(s) Subcutaneous TID in addition to sliding scale 04/08/20 022 Inactive d/c 36u albuterol sulfate HFA 90 mcg/actuation aerosol inhaler RxNorm: 4275774 Take 2 Puff(s) Inhalation Q4H every four hours as needed as needed for SOB, cough, or wheezing 04/07/20 030 Active Banophen 50 mg capsule RxNorm: 8772826 Take 1 Capsule(s) Oral Q6H every 6 hours as needed 04/06/20 023 Inactive diphenhydramine 50 mg tablet RxNorm: 5062208 Take 1 Tablet(s) Oral Q6H every 6 hours as needed 04/06/20 22 022 Inactive diphenhydramine 50 mg tablet RxNorm: 4337684 1 Tablet(s) Oral Q6H every 6 hours as needed 04/06/20 22 022 Inactive Abilify 15 mg tablet RxNorm: 194417 1/2 Tablet(s) Oral QD 03/10/20 22 023 Inactive Shingrix (PF) 50 mcg/0.5 mL intramuscular suspension, kit RxNorm: 0424650 Administer 1/2 Milliliter(s) Intramuscular QD one time shingrix step 2 ( step 1 given 11/04/21) WITH needle - Nursing please administer upon arrival and once administered post a bridge message with date of administration, drainage design coordinator, expiration date, and lot# so we can update [facility] 02/18/20 22 022 Inactive dispense with needle Shingrix (PF) 50 mcg/0.5 mL intramuscular suspension, kit RxNorm: 8484348 Administer 1/2 Milliliter(s) Intramuscular QD one time shingrix step 2 ( step 1 given 11/04/21) WITH needle - Nursing please administer upon arrival and once administered post a bridge message with date of administration, drainage design coordinator, expiration date, and lot# so we can update [facility] 02/18/20 22 022 Inactive dispense with needle polyethylene glycol 3350 17 gram/dose oral powder RxNorm: 818896 Take 17=1 capful Gram(s) Oral QD mix with 4-8oz of liquid 01/08/20 22 025 Inactive take this in addition to BID prn order Lyrica 100 mg capsule RxNorm: 850718 Take 1 Capsule(s) Oral QAM every morning 01/08/20 22 022 Inactive d/c 50mg dose acetaminophen 500 mg tablet RxNorm: 036718 Take 1 Tablet(s) Oral TID 01/08/20 22 022 Inactive d/c PRN order Lyrica 150 mg capsule RxNorm: 773700 Take 1 Capsule(s) Oral QHS every night at bedtime 01/08/20 22 023 Inactive d/c 100mg dose Abilify 5 mg tablet RxNorm: 792695 Take 1 Tablet(s) Oral QD take 1 tab po QD #30 refill 5 dx: MDD 12/12/19 22 022 Inactive Abilify 5 mg tablet RxNorm: 350488 Take 1 Tablet(s) Oral QD take 1 tab po QD #30 refill 5 dx: MDD 12/12/19 22 022 Inactive Novolog Flexpen U-100 Insulin aspart 100 unit/mL (3 mL) subcutaneous RxNorm: 3689404 Inject 42 Unit(s) Subcutaneous TID in addition to sliding scale 12/10/19 22 022 Inactive d/c 36u chlorthalidone 25 mg tablet RxNorm: 958182 Take 1 Tablet(s) Oral QAM every morning 12/10/19 22 023 Inactive pregabalin 50 mg capsule RxNorm: 685374 Take 1 Capsule(s) Oral QAM every morning 11/12/19 22 022 Inactive tetanus-diphtheria toxoids-Td 2 Lf unit-2 Lf unit/0.5 mL IM suspension RxNorm: 139 Take 0.5 Miscellaneous Intramuscular 11/12/19 22 022 Inactive need tdap - nursing to administer upon arrival pregabalin 50 mg capsule RxNorm: 739173 Take 1 Capsule(s) Oral QAM every morning 10/16/19 22 022 Inactive pregabalin 50 mg capsule RxNorm: 922441 Take 1 Capsule(s) Oral QAM every morning 10/16/19 22 022 Inactive pregabalin 50 mg capsule RxNorm: 978500 1 Capsule(s) Oral QAM every morning 10/15/19 22 022 Inactive Shingrix (PF) 50 mcg/0.5 mL intramuscular suspension, kit RxNorm: 3873886 Administer 1/2 Milliliter(s) Intramuscular one time Nursing please administer upon arrival and once administered post a bridge message with date of administration, drainage design coordinator, expiration date, and lot# so we can update [facility]. 10/09/19 22 022 Inactive shingrix step 1 Shingrix (PF) 50 mcg/0.5 mL intramuscular suspension, kit RxNorm: 5978262 Administer 1/2 Milliliter(s) Intramuscular one time Nursing please administer upon arrival and once administered post a bridge message with date of administration, drainage design coordinator, expiration date, and lot# so we [...] aspart 100 unit/mL (3 mL) subcutaneous RxNorm: 0981615 Inject 10 Unit(s) Subcutaneous QHS every night at bedtime with nighttime snack 10/08/19 22 022 Inactive Shingrix (PF) 50 mcg/0.5 mL intramuscular suspension, kit RxNorm: 9377217 ADMINISTER 2-DOSE SERIES PER CDC GUIDELINES 10/08/19 22 Active Shingrix (PF) 50 mcg/0.5 mL intramuscular suspension, kit RxNorm: 5007521 ADMINISTER 2-DOSE SERIES PER CDC GUIDELINES 10/08/19 22 Inactive Novolog Flexpen U-100 Insulin aspart 100 unit/mL (3 mL) subcutaneous RxNorm: 1008235 Inject 36 Unit(s) Subcutaneous TID in addition to sliding scale 10/08/19 Inactive cholecalciferol (vitamin D3) 1,250 mcg (50,000 unit) capsule RxNorm: 902126 Take 1 Capsule(s) Oral QW once a week 10/08/19 22 024 Inactive Novofine Autocover 30 gauge x 1/3 needle RxNorm: Use 1 Miscellaneous UD as directed Use 1 needle as directed to administer insulin 5 times a day Dx:E11.42. 10/03/19 22 022 Inactive ok to substitute with any covered alternative pen needle benzoyl peroxide 10 % topical cleanser RxNorm: 798704 Apply 1 Application Topical QD apply to face, wash rinse and dry once daily (may change to QOD if drying) 08/19/19 22 022 Inactive (%covered by insurance) #60ml refill 11 dx: acne benzoyl peroxide 10 % topical cleanser RxNorm: 308508 Apply 1 Application Topical QD apply to face, wash rinse and dry once daily (may change to QOD if drying) 08/19/19 22 022 Inactive (%covered by insurance) #60ml refill 11 dx: acne benzoyl peroxide 10 % topical cleanser RxNorm: 487958 Apply 1 Application Topical QD apply to face, wash rinse and dry once daily (may change to QOD if drying) 08/19/19 22 022 Inactive (%covered by insurance) #60ml refill 11 dx: acne Lyrica 50 mg capsule RxNorm: 018532 Take 1 Capsule(s) Oral QAM every morning Take 1 capsule by mouth once daily 08/19/19 22 022 Inactive benzoyl peroxide 10 % topical cleanser RxNorm: 070759 Apply 1 Application Topical QD apply to face, wash rinse and dry once daily (may change to QOD if drying) 08/19/19 22 022 Inactive (%covered by insurance) #60ml refill 11 dx: acne Lyrica 100 mg capsule RxNorm: 943167 Take 1 Capsule(s) Oral QHS every night at bedtime Take 1 capsule by mouth once daily at bedtime 08/19/19 22 022 Inactive Lyrica 100 mg capsule RxNorm: 328987 Take 1 Capsule(s) Oral QHS every night at bedtime Take 1 capsule by mouth once daily at bedtime 08/16/19 22 022 Inactive Lyrica 50 mg capsule RxNorm: 810339 Take 1 Capsule(s) Oral QAM every morning Take 1 capsule by mouth once daily 08/16/19 22 022 Inactive Levemir FlexTouch U-100 Insulin 100 unit/mL (3 mL) subcutaneous pen RxNorm: 773125 Inject 86 Unit(s) Subcutaneous BID 08/05/19 22 022 Inactive d/c 83units BID Lyrica 100 mg capsule RxNorm: 530805 Take 1 Capsule(s) Oral QHS every night at bedtime Take 1 capsule by mouth once daily at bedtime 07/14/19 22 022 Inactive Lyrica 50 mg capsule RxNorm: 146158 Take 1 Capsule(s) Oral QAM every morning Take 1 capsule by mouth once daily 07/14/19 22 022 Inactive Levemir FlexTouch U-100 Insulin 100 unit/mL (3 mL) subcutaneous pen RxNorm: 920271 Inject 83 Unit(s) Subcutaneous BID 07/08/19 22 [...] test strip hydralazine 50 mg tablet RxNorm: 268498 Take 1 Tablet(s) Oral QID 05/05/20 21 022 Inactive venlafaxine ER 225 mg tablet,extended release 24 hr RxNorm: 482658 Take 1 Tablet(s) Oral QD 05/05/20 21 021 Inactive venlafaxine ER 225 mg tablet,extended release 24 hr RxNorm: 950447 Take 1 Tablet(s) Oral QD 05/05/20 21 022 Inactive isosorbide mononitrate ER 30 mg tablet,extended release 24 hr RxNorm: 398961 Take 1 Tablet(s) Oral QD 05/05/20 024 Inactive hydralazine 50 mg tablet RxNorm: 631675 Take 1 Tablet(s) Oral QID 05/05/20 21 021 Inactive aspirin 81 mg tablet,delayed release RxNorm: 574105 Take 1 Tablet(s) Oral QD 03/31/20 022 Inactive Vitamin D2 1,250 mcg (50,000 unit) capsule RxNorm: 5238661 Take 1 Capsule(s) Oral QW once a week x 12 weeks 03/31/20 022 Inactive Vitamin D2 1,250 mcg (50,000 unit) capsule RxNorm: 7471617 Take 1 Capsule(s) Oral QW once a week 03/31/20 021 Inactive Zetia 10 mg tablet RxNorm: 873947 Take 1 Tablet(s) Oral QD 03/31/20 024 Inactive Zetia 10 mg tablet RxNorm: 316523 Take 1 Tablet(s) Oral QD 03/31/20 021 Inactive hydralazine 25 mg tablet RxNorm: 361223 Take 1 Tablet(s) Oral QID 03/31/20 021 Inactive hydralazine 25 mg tablet RxNorm: 700295 Take 1 Tablet(s) Oral QID 03/31/20 021 Inactive hydralazine 10 mg tablet RxNorm: 164025 Take 1 Tablet(s) Oral QID 03/03/20 021 Inactive cephalexin 500 mg tablet RxNorm: 507038 Take 1 Tablet(s) Oral QID 02/27/20 021 Inactive cephalexin 500 mg tablet RxNorm: 310156 Take 1 Tablet(s) Oral QID 02/27/20 021 Inactive lisinopril 40 mg tablet RxNorm: 620144 Take 1 Tablet(s) Oral QD 02/11/20 21 023 Inactive Eliquis 5 mg tablet RxNorm: 9090924 Take 1 Tablet(s) Oral BID 01/05/20 21 025 Inactive Eliquis 5 mg tablet RxNorm: 5767179 Take 2 Tablet(s) Oral QD 01/01/20 21 021 Inactive Lyrica 50 mg capsule RxNorm: 909879 Take 1 Capsule(s) Oral QAM every morning 12/24/19 21 021 Inactive Lyrica 100 mg capsule RxNorm: 194001 Take 1 Capsule(s) Oral QHS every night at bedtime 12/24/19 21 021 Inactive clotrimazole 1 % topical cream RxNorm: 396136 Apply to right foot and toes Topical BID 12/04/19 21 023 Inactive metoprolol succinate ER 200 mg tablet,extended release 24 hr RxNorm: 355666 Take 1 Tablet(s) Oral QD 12/04/19 21 023 Inactive ciprofloxacin 500 mg tablet RxNorm: 428377 Take 1 Tablet(s) Oral QD 11/30/19 21 021 Inactive DX ofloxacin otic drops Accu-Chek Guide test strips RxNorm: USE 1 TO CHECK GLUCOSE 4 TIMES DAILY AND NEEDED 11/15/19 21 023 Inactive Blood Glucose Test strips RxNorm: Use 1 Test Strip QID at PRN 11/05/19 21 023 Inactive E11.42 lisinopril 30 mg tablet RxNorm: 936566 Take 1 Tablet(s) Oral QD 10/30/19 021 Inactive lisinopril 20 mg tablet RxNorm: 907088 Take 1 Tablet(s) Oral QD 10/23/19 21 021 Inactive lisinopril 20 mg tablet RxNorm: 727201 Take 1 Tablet(s) Oral QD 10/23/19 21 021 Inactive lisinopril 10 mg tablet RxNorm: 266353 Take 1 Tablet(s) Oral QD 10/02/19 21 021 Inactive icosapent ethyl 1 gram capsule RxNorm: 5505831 Take 2 Capsule(s) (2 gm) Oral BID with meals 09/12/19 21 024 Inactive Okay to dispense one 2gm tab if you have that available. icosapent ethyl 1 gram capsule RxNorm: 0103296 Take 2 Capsule(s) Oral BID 09/12/19 21 021 Inactive Okay to dispense one 2gm tab if you have that available. amlodipine 10 mg tablet RxNorm: 488728 Take 1 Tablet(s) Oral QD 09/04/19 21 021 Inactive aspirin 81 mg tablet,delayed release RxNorm: 168431 Take 1 Tablet(s) Oral QD 09/04/19 21 021 Inactive Levemir FlexTouch U-100 Insulin 100 unit/mL (3 mL) subcutaneous pen RxNorm: 618264 Inject 150 Unit(s) Subcutaneous BID 09/04/19 21 022 Inactive venlafaxine ER 150 mg tablet,extended release 24 hr RxNorm: 388902 Take 1 Tablet(s) Oral QD 09/04/19 21 021 Inactive clotrimazole-betame thasone 1 %-0.05 % topical cream RxNorm: 017999 Apply to rash on red area on left abdomen/chest Topical BID 08/10/19 21 021 Inactive amlodipine 5 mg tablet RxNorm: 010310 Take 1 Tablet(s) Oral QD 07/31/19 021 Inactive cephalexin 500 mg tablet RxNorm: 666521 Take 1 Tablet(s) Oral BID BID - Twice Daily 07/31/19 21 021 Inactive Start 08/01/20 pantoprazole 40 mg tablet,delayed release RxNorm: 550682 Take 1 Tablet(s) Oral QAM every morning 07/08/19 025 Inactive senna 8.6 mg tablet RxNorm: 504250 Take 1 Tablet(s) Oral QD 07/08/19 025 Inactive carbamazepine 200 mg tablet RxNorm: 475259 Take 1 Tablet(s) Oral BID 07/08/19 21 025 Inactive clopidogrel 75 mg tablet RxNorm: 009990 Take 1 Tablet(s) Oral QD 07/08/19 21 021 Inactive Blood Glucose Test strips RxNorm: Use 1 Test Strip QID at PRN 07/08/19 21 021 Inactive E11.42 Novolog Flexpen U-100 Insulin aspart 100 unit/mL (3 mL) subcutaneous RxNorm: 5794891 Administer per sliding scale Milliliter(s) Subcutaneous TID 151-200: 10 u; 201-250: 20 u; 251-300: 30 u; 301-350: 40 u; 351-400: 50 u. 07/08/19 022 Inactive lisinopril 5 mg tablet RxNorm: 319311 Take 1 Tablet(s) Oral QD 07/08/19 021 Inactive Novolog Flexpen U-100 Insulin aspart 100 unit/mL (3 mL) subcutaneous RxNorm: 2205949 Inject 85 Unit(s) Subcutaneous TID 07/08/19 022 Inactive pravastatin 80 mg tablet RxNorm: 561309 Take 1 Tablet(s) Oral QHS every night at bedtime 07/08/19 023 Inactive clotrimazole 1 % topical cream RxNorm: 017717 Apply to bilateral groin areas Topical BID 07/08/19 022 Inactive metoprolol succinate ER 200 mg tablet,extended release 24 hr RxNorm: 084018 Take 1 Tablet(s) Oral QD 07/08/19 021 Inactive Vitamin D3 25 mcg (1,000 unit) tablet RxNorm: 174606 Take 1 Tablet(s) Oral QD 07/08/19 021 Inactive isosorbide dinitrate 30 mg tablet RxNorm: 882489 Take 1 Tablet(s) Oral QD 07/08/19 021 Inactive Levemir FlexTouch U-100 Insulin 100 unit/mL (3 mL) subcutaneous pen RxNorm: 986374 Inject 140 Unit(s) Subcutaneous BID 07/08/19 021 Inactive torsemide 20 mg tablet RxNorm: 694186 Take 1 Tablet(s) Oral QD 07/08/19 023 Inactive venlafaxine 75 mg tablet RxNorm: 735419 Take 1 Tablet(s) Oral QD 07/08/19 021 Inactive acetaminophen 500 mg tablet RxNorm: 750726 Take 1 Tablet(s) Oral TID as needed for headache 06/18/19 21 021 Inactive acetaminophen 500 mg tablet RxNorm: 020129 Take 1 Tablet(s) Oral TID as needed for headache 06/18/19 21 021 Inactive Lyrica 100 mg capsule RxNorm: 413843 Take 1 Capsule(s) Oral QHS every night at bedtime 06/11/19 21 021 Inactive Lyrica 50 mg capsule RxNorm: 636652 Take 1 Capsule(s) Oral QAM every morning 06/10/19 21 021 Inactive hydrocortisone 2.5 % topical cream RxNorm: 022002 Apply to bilateral groin creases Topical BID 05/15/20 20 021 Inactive clotrimazole 1 % topical cream RxNorm: 159137 Apply to bilateral groin areas Topical BID 05/15/20 20 021 Inactive Lyrica 50 mg capsule RxNorm: 563989 Take 1 Capsule(s) Oral QAM every morning 05/14/20 20 020 Inactive Lyrica 100 mg capsule RxNorm: 005842 Take 1 Capsule(s) Oral QHS every night [...] Inactive Nystop 100,000 unit/gram topical powder RxNorm: 114125 Apply to abd folds, under breasts and L side of groin Topical BID x 14 days, then BID PRN 04/08/20 20 11/23/2 020 Inactive dx: yeast dermatitis Lyrica 100 mg capsule RxNorm: 670140 Take 1 Capsule(s) Oral QHS every night at bedtime 03/13/20 20 Inactive Lyrica 50 mg capsule RxNorm: 541640 Take 1 Capsule(s) Oral QAM every morning 03/13/20 20 Inactive ketoconazole 2 % shampoo RxNorm: 260147 Apply Topical two times a week with showers 03/11/20 Inactive cholecalciferol (vitamin D3) 50 mcg (2,000 unit) tablet RxNorm: 531864 Take 1 Tablet(s) Oral QD 03/11/20 Inactive Zetia 10 mg tablet RxNorm: 345606 Take 1 Tablet(s) Oral QD 03/07/20 20 021 Inactive Zetia 10 mg tablet RxNorm: 050075 Take 1 Tablet(s) Oral QD 03/07/20 Inactive Lyrica 50 mg capsule RxNorm: 590043 Take 1 Capsule(s) Oral QAM every morning 02/15/20 20 Inactive Lyrica 100 mg capsule RxNorm: 900523 Take 1 Capsule(s) Oral QHS every night at bedtime 02/15/20 20 Inactive Lyrica 100 mg capsule RxNorm: 420163 Take 1 Capsule(s) Oral QHS every night at bedtime 02/15/20 20 Inactive Lyrica 50 mg capsule RxNorm: 645356 Take 1 Capsule(s) Oral QAM every morning 02/15/20 20 Inactive metoprolol succinate ER 200 mg tablet,extended release 24 hr RxNorm: 177329 Take 1 Tablet(s) Oral QD 08/12/19 025 Inactive loperamide 2 mg capsule RxNorm: 179095 Take 1 Capsule(s) Oral QID as needed 09/06/19 025 Inactive hydralazine 50 mg tablet RxNorm: 072362 Take 1 Tablet(s) Oral QID 08/12/19 025 Inactive Soft Touch Lancets RxNorm: miscellaneous 03/04/20 24 025 Inactive venlafaxine ER 75 mg capsule,extended release 24 hr RxNorm: 113996 Take 3 Capsule(s) Oral QD 06/12/19 22 023 Inactive polyethylene glycol 3350 17 gram/dose oral powder RxNorm: 775879 Take 17=1 capful Gram(s) Oral BID as needed mix with 4-8oz of liquid 06/12/19 22 024 Inactive icosapent ethyl 1 gram capsule RxNorm: 1407841 Take 2 Capsule(s) (2 gm) Oral BID with meals 10/07/19 23 023 Inactive Okay to dispense one 2gm tab if you have that available. Levemir FlexTouch U-100 Insulin 100 unit/mL (3 mL) subcutaneous pen RxNorm: 830727 Inject 80 Unit(s) Subcutaneous BID 07/14/19 23 023 Inactive Novolog Flexpen U-100 Insulin aspart 100 unit/mL (3 mL) subcutaneous RxNorm: 2138652 Insert 30 Unit(s) Subcutaneous TID with meals [...] Planned Activity Notes Codes Status Date Referral: [facility] Radiology/Imaging WPtel: [address] [place], [place] [id number] USReferralAppointment Nedrdcnxh11/06/2025Referral: [facility]/Endocrinology WPtel: [address] [place] [address] 3 [id number] USReferralNo Records Jlcgofel89/24/2025Patient Education: Patient Medication YcffedcCxivttgan60/26/2024ppointment: Harrison Munson WPtel: [address] [facility] 300 [id number] USAWV02/08/2024ppointment: Harrison Munson WPtel: [address] [facility] 300 [id number] USF/U001/11/2024ppointment: Sandra Clark WPtel: [address] [facility] Psych Follow Up12/09/2022ppointment: Tapan Shirley WPtel: [address] [facility]10/26/2022Referral: [facility] WPtel: [address], [address] [id number] USReferralRecords Rfeimiel25/08/2023ppointment: Tapan Shirley WPtel: [address] [facility] [address] [id number] USF/08/11/2022ppointment: Tapan Shirley WPtel: [address] [facility] [address] [id number] USF/U007/14/2022ppointment: Tapan Shirley WPtel: [address] [facility] 300 [id number] USF/2Referral: [facility] WPtel: [address] [id number] VBDgpevzerRzuuvctek41/12/2022Referral: General CardiologyReferralCompleted 1Referral: General PsychologistReferralClosedReferral: General PsychiatristReferralPatient/Family Scheduling AppointmentReferral: General Physical MedicineReferralFacility Scheduling Appointment Instructions Comment Date Leonid is a Male being seen living at [facility]. Initial [facility]PS visit 01/2020. PMHx including DMII, CAD w/ 5 stents, Depression, Seizure Disorder and CKD stage 3. He moved into [facility] in 12/2019 but after a hospitalization 05/2021 he moved to the [facility] to have closer nursing attention. Sister Jyotsna involved in his care cell# [phone] Guardian: Giulia (tapan met in person 09/01/21), [...] appointment 05.26.2024 with Jessa Webster MD at [facility]. Start Pioglitazone 15 mg QD. Stop Basaglar insulin. Increase Ozempic 2 mg once wkly. Continue Humalin R U-500 100 units with meals TID. FOLLOW UP 2 MONTHS. If BG >400 add 50 units to next scheduled dose of Humalin R U 500 insulin 06/12/2024
--- OUTSIDE RECORDS SUMMARY | 2024-10-19 18:35 | XMS_ITS | CCD ---
Author Name Cecilio Durham Address [address] [facility] [address] [place] [address] Phone Organization [facility] Phone Care Team Providers Care Dowel Pin Worker Name Role Phone Harrison Durham Primary Care Provider Leona vailable Unavailable Chronic Care Management Unavaila ble Summary Purpose DataExchange Insurance Providers Payer name Policy type / Coverage type Covered alliance party ID Effective Begin Date Effective End Date [place] Part B [id number] Unknown Unknown [place] [id number] Unknown Unknown Family history Sister Brittany Suggs [...] on file 07/11/[address]: [id number] Never smoker 01/16 Sexually Active? Unknown No [...] Unknown Longterm 09/03/[address]: 451707858 No Alcohol Consum ption 09/02/2020 Allergies, Adverse Reactions, Alerts Substance Reaction Codes Entered Date Inactivated Date Status * NO KNOWN FOOD ALLERGIES Lvzaypp9607/13/2023No Inactive DateActiveLISINOPRILRxNorm: 0891919 Inactive DateActiveMetformin WMpIflaoql09/28/2020 Inactive DateActive* NO KNOWN ENVIRONMENTAL HOCXRMPTHTvymnte27/27/2024 Inactive DateActive Problems Condition Codes Effective Dates Condition St atus Constipation by delayed colonic transit ICD-10: K59.01 ICD-9: 564.01045ActiveHypokalemiaICD-10: E87.6 ICD-9: 276.8045ActiveLoose stoolsSNOMED CT: 153073183 ICD-10: R19.5 ICD-9: 787.7045ActiveStage 2 chronic 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ICD-10: E11.22 ICD-9: 250.40045ActiveType 2 diabetes mellitus with diabetic polyneuropathy, with long-term current use of insulinICD-10: E11.42 ICD-9: 250.60045ActiveBody mass index [BMI] 60.0-69.9, adultSNOMED CT: 607234978 ICD-10: Z68.44 ICD-9: V85.44035ActiveMixed incontinenceSNOMED CT: 45550891 ICD-10: N39.46 ICD-9: 788.33035ActiveDiabetic neuropathy associated with type 2 diabetes mellitusICD-10: E11.40 ICD-9: 250.60025ActiveHemorrhoidsICD-10: K64.9 ICD-9: 455.6025ActiveLower extremity edemaICD-10: R60.0 ICD-9: 782.3025ActivePVD (peripheral vascular disease)ICD-10: I73.9 ICD-9: 443.9025ActiveCandidal intertrigoICD-10: B37.2 ICD-9: 112.301/5ActiveHyperlipidemia associated with type 2 diabetes mellitusICD-10: E11.69 ICD-9: 250.80015ActiveHypertensive heart disease without heart failure ICD-10: I11.9 ICD-9: 402.9001/tiveOnychogryposisICD-10: L60.2 ICD-9: 703.801/tiveAdvance care planningICD-10: Z71.89 ICD-9: V65.4912/ctiveLow back painICD-10: M54.50 ICD-9: 724.210/ctiveParaparesis of both lower limbsICD-10: G82.20 ICD-9: 344.110/ctivePhysical deconditioningICD-10: R53.81 ICD-9: 799.310/ctiveAdvanced care planning - to document end of life nzwkzlkxxdcGgqjomf05/24/2024ctiveAmputated toe of right footICD-10: S98.131A ICD-9: 895.009ctiveAnnual physical examICD-10: Z00.00 ICD-9: V70.009ctiveHistory of anemia due to CKDICD-10: N18.9 ICD-9: 585.909/ctiveHx of deep venous thrombosisICD-10: Z86.718 ICD-9: V12.5109/ctiveHypercoagulable stateICD-10: D68.59 ICD-9: 289.8109ctiveLearning disabilityICD-10: F81.9 ICD-9: 315.209/ctiveMajor depression, recurrentICD-10: F33.9 ICD-9: 296.3009/ctivePressure ulcer of left calf, unstageableICD-10: L89.890 ICD-9: 707.0909/ctiveReducible umbilical herniaICD-10: K42.9 ICD-9: 553.109/ctiveSeizure disorderICD-10: G40.909 ICD-9: 345.9009/ctiveVitamin D deficiencyICD-10: E55.9 ICD-9: 268.909/4ActiveCallus of heelICD-10: L84 ICD-9: 84256/esolvedGout due to renal impairmentICD-10: M10.30 ICD-9: 274.1005esolvedHyperhidrosis of palmsICD-10: L74.512 ICD-9: 705.2105esolvedHyperlipidemia, unspecifiedICD-10: E78.5 ICD-9: 272.405esolvedOther prison (current) drug therapyICD-10: Z79.899 ICD-9: V58.69010/12/2023esolvedPain of right heelICD-10: M79.671 ICD-9: 729.505esolvedStage 2 chronic kidney diseaseICD-10: N18.2 ICD-9: 585.205esolvedTinea pedis of both feetICD-10: B35.3 ICD-9: 110.405esolvedRecurrent major depressive disorder, in partial remissionICD-10: F33.41 ICD-9: 296.3504/4ActiveCellulitisICD-10: L03.90 ICD-9: 682.9009/07/2023esolvedDandruff in adultICD-10: L21.0 ICD-9: 690.1804esolvedEncounter for other specified special examinationsICD-10: Z01.89 ICD-9: V72.8504/esolvedEncounter for screening for nutritional disorder ICD-10: Z13.21 ICD-9: V77.9904/esolvedImpacted cerumen, left earICD-10: H61.22 ICD-9: 380.404/esolvedShortness of breathICD-10: R06.02 ICD-9: 786.0504/esolvedSkin tagICD-10: L91.8 ICD-9: 701.904esolvedCoronary artery disease involving [place] coronary artery of [place] heart, angina presence unspecifiedICD-10: I25.10 ICD-9: 414.0102/4ActiveInappropriate sexual behaviorICD-10: Z72.89 ICD-9: 312.8910/ctivePre-op evaluationICD-10: Z01.818 ICD-9: V72.8403/ctiveSecondary hypertensionICD-10: I15.9 ICD-9: 405.9903/ctiveDepressionICD-10: F32.9 ICD-9: 18910/esolvedDVT (deep venous thrombosis)ICD-10: I82.409 ICD-9: 453.4009esolvedEncounter for [...] to other viral communicable diseasesICD-10: Z20.828 ICD-9: V01.7902/4170GezvoeduVmpkoeeoNfzyihk25/28/2020ActiveDiabetes mellitus Type 7Uhmkqqx76/28/2020ActiveAnemia in chronic kidney diseaseICD-10: D63.1 02/12/2020ResolvedHyperlipidemia, unspecifiedICD-10: E78.Resolved Medications Medication Codes Instructions Start Date Stop Date Status Fill Instructions loperamide 2 mg tablet RxNorm: 635377 Take 2 Tablet(s) Oral UD as directed [...] Date Active senna 8.6 mg tablet RxNorm: 235989 Take 1 Tablet(s) Oral QD as needed and 1 tab BID prn 09/06/19 No Stop Date Active cyclobenzaprine 10 mg tablet RxNorm: 047691 Take 1 Tablet(s) Oral QHS every night at bedtime as needed 09/06/19 25 No Stop Date Active loperamide 2 mg tablet RxNorm: 417616 Take 2 Tablet(s) Oral UD as directed as needed 2 tabs after first loose stool then 1 tab after each subsequent stool PRN Do not exceed 4 doses in 24 hours. Do not administer until after 3 loose stools. 09/06/19 25 026 Active pioglitazone 15 mg tablet RxNorm: 176257 Take 1 Tablet(s) Oral QD 09/06/19 No Stop Date Active loperamide 2 mg tablet RxNorm: 455284 Take 2 Tablet(s) Oral UD as directed as needed 2 tabs after first loose stool then 1 tab after each subsequent stool PRN Do not exceed 4 doses in 24 hours. Do not administer until after 3 loose stools. 09/06/19 25 025 Inactive pregabalin 100 mg capsule RxNorm: 033738 1 CAPSULE BY MOUTH EVERY MORNING (DX: NEUROPATHY) 08/23/19 25 025 Active FACILITY IS REQUESTING REFILL. PRIOR RX HAS BEEN EXHAUSTED. THANK YOU. pregabalin 150 mg capsule RxNorm: 761716 1 CAPSULE BY MOUTH AT BEDTIME (DX: NEUROPATHY) 08/21/19 Active FACILITY IS REQUESTING A REFILL OF THIS MEDICATION, THANK YOU! senna 8.6 mg tablet RxNorm: 221383 Take 1 Tablet(s) Oral QD as needed for constipation on day 2 of no bowel movement 08/09/19 25 Inactive Miralax 17 gram/dose oral powder RxNorm: 998826 Administer 17 Gram(s) Oral QD as needed for constipation on day 3 of no bowel movement 08/09/19 25 025 Inactive senna 8.6 mg tablet RxNorm: 139589 Take 1 Tablet(s) Oral QD as needed for constipation on day 2 of no bowel movement 08/09/19 025 Inactive Miralax 17 gram/dose oral powder RxNorm: 923639 Administer 17 Gram(s) Oral QD as needed for constipation on day 3 of no bowel movement 08/09/19 Inactive pregabalin 100 mg capsule RxNorm: 360870 Take 1 Capsule(s) Oral QAM every morning [...] (Concentrated) Insulin 500 unit/mL subcutaneous soln RxNorm: 803241 Inject 100 Unit(s) Subcutaneous AC before meals Three times daily before meals. 07/24/19 25 025 Inactive ammonium lactate 12 % topical cream RxNorm: 636285 Apply 1 Application Topical BID 07/20/19 No Stop Date Active ezetimibe 10 mg tablet RxNorm: 769604 Take 1 Tablet(s) Oral QD 07/18/19 No Stop Date Active senna 8.6 mg tablet RxNorm: 695898 Take 1 Tablet(s) Oral QD 07/18/19 25 025 Inactive metoprolol succinate ER 200 mg tablet,extended release 24 hr RxNorm: 770002 Take 1 Tablet(s) Oral QD 06/19/19 25 No Stop Date Active pantoprazole 40 mg tablet,delayed release RxNorm: 960358 Take 1 Tablet(s) Oral QAM every morning 06/19/19 25 No Stop Date Active hydralazine 50 mg tablet RxNorm: 133415 Take 1 Tablet(s) Oral QID 06/19/19 25 No Stop Date Active carbamazepine 200 mg tablet RxNorm: 683211 Take 1 Tablet(s) Oral BID 06/19/19 25 No Stop Date Active amlodipine 10 mg tablet RxNorm: 188835 Take 1 Tablet(s) Oral QD 06/19/19 25 No Stop Date Active Eliquis 5 mg tablet RxNorm: 6480814 Take 1 Tablet(s) Oral BID 06/19/19 25 No Stop Date Active pen needle, diabetic 30 gauge x 3/16 RxNorm: Use 1 6 times per day w/insulin 06/14/19 25 026 Active pen needle, diabetic 30 gauge x 3/16 RxNorm: Use 1 needle 6 times per day w/insulin 06/14/19 25 025 Inactive nystatin 100,000 unit/gram topical powder RxNorm: 451897 Apply 1 Application Topical BID as needed abdominal/breast /groin folds 05/24/19 25 026 Active pregabalin 100 mg capsule RxNorm: 873727 Take 1 Capsule(s) Oral QAM every morning 05/22/19 25 025 Inactive nystatin 100,000 unit/gram topical powder RxNorm: 998048 Apply 1 Application Topical BID as needed abdominal/breast /groin folds 04/11/20 24 024 Inactive chlorthalidone 25 mg tablet RxNorm: 294866 Take 1 Tablet(s) Oral QAM every morning 04/06/20 24 No Stop Date Active pregabalin 150 mg capsule RxNorm: 750598 Take 1 Capsule(s) Oral QHS every night at bedtime 03/31/20 24 024 Inactive Vascepa 1 gram capsule RxNorm: 8506114 Take 2 Capsule(s) Oral BID 03/30/20 24 025 Active rosuvastatin 40 mg tablet RxNorm: 890876 1 TAB ORALLY EVERY EVENING (DX:CORONARY ARTERY DISEASE) 03/28/20 No Stop Date Active venlafaxine ER 75 mg capsule,extended release 24 hr RxNorm: 522228 3 CAPS (225MG) ORALLY DAILY (DX: MOOD DISORDER) 03/28/20 No Stop Date Active pregabalin 100 mg capsule RxNorm: 040344 Take 1 Capsule(s) Oral QAM every morning 03/20/20 Inactive cholecalciferol (vitamin D3) 1,250 mcg (50,000 unit) capsule RxNorm: 419741 Take 1 Capsule(s) Oral QW once a [...] Insulin 100 unit/mL (3 mL) subcutaneous RxNorm: 3802273 Inject 40 Unit(s) Subcutaneous BID 03/07/20 025 Inactive Please dispense one month supply. Humulin R U-500 (Concentrated) Insulin 500 unit/mL subcutaneous soln RxNorm: 449430 Inject 100 Unit(s) Subcutaneous AC before meals [...] PRN) to be use with new Accu [place]er meter 03/04/20 Inactive ok to substitute with any covered alternative test strip FreeStyle Chema 2 Sensor kit RxNorm: Use UD as directed 03/02/20 Inactive Pen Needle 30 gauge x 516 RxNorm: Pen(s) Use 1 needle as directed TID 03/02/20 Inactive nystatin 100,000 unit/gram topical powder RxNorm: 919932 Apply 1 Application Topical BID as needed [...] (Concentrated) Insulin 500 unit/mL subcutaneous soln RxNorm: 071179 Inject 100 Unit(s) Subcutaneous TID 02/17/20 24 024 Inactive Humulin R U-500 (Concentrated) Insulin 500 unit/mL subcutaneous soln RxNorm: 388816 Inject 100 Unit(s) Subcutaneous TID 02/10/20 24 024 Inactive Basaglar KwikPen U-100 Insulin 100 unit/mL (3 mL) subcutaneous RxNorm: 6261038 Inject 30 Unit(s) Subcutaneous BID 02/10/20 24 024 Inactive Please dispense one month supply. pregabalin 100 mg capsule RxNorm: 040955 Take 1 Capsule(s) Oral QAM every morning 02/07/20 24 024 Inactive isosorbide mononitrate ER 60 mg tablet,extended release 24 hr RxNorm: 263429 Take 1 Tablet(s) Oral QD 02/01/20 24 025 Active aripiprazole 15 mg tablet RxNorm: 083903 Take 1/2 Tablet(s) Oral QD 02/01/20 24 025 Active torsemide 20 mg tablet RxNorm: 965329 1 TAB ORALLY DAILY (DX: EDEMA) 01/27/20 No Stop Date Active potassium chloride ER 20 mEq tablet,extended release(part/cryst) RxNorm: 3616548 2 TABS (40MEQ) ORALLY TWICE DAILY (DX: HYPOKALEMIA) 01/27/20 24 025 Inactive cephalexin 500 mg capsule RxNorm: 895826 Take 1 Capsule(s) Oral QID 12/17/19 24 024 Inactive cephalexin 500 mg capsule RxNorm: 730998 Take 1 Capsule(s) Oral QID 12/17/19 24 024 Inactive acetaminophen 500 mg tablet RxNorm: 198100 (MAX APAP:4GM/24HR) Take 1 Tablet(s) Oral TID as needed for pain 12/10/19 24 024 Inactive torsemide 20 mg tablet RxNorm: 401338 Take 1 Tablet(s) Oral QD 10/26/19 24 024 Inactive potassium chloride ER 20 mEq tablet,extended release RxNorm: 746806 Take 2 Tablet(s) Oral BID 10/26/19 24 024 Inactive torsemide 20 mg tablet RxNorm: 241568 Take 1 Tablet(s) Oral QD 10/26/19 24 Inactive potassium chloride ER 20 mEq tablet,extended release RxNorm: 659423 Take 2 Tablet(s) Oral BID 10/26/19 24 Inactive Artificial Tears (PF) 0.1 %-0.3 % drops in a dropperette RxNorm: 584076 Apply 1-2 Drop(s) Both eyes BID as needed 09/28/19 24 05/08/2 025 Inactive erythromycin 5 mg/gram (0.5 %) eye ointment RxNorm: 891985 Apply 1 Application Both eyes QHS every night at bedtime Instill ~1 cm ribbon into affected eye 09/28/19 24 024 Inactive Artificial Tears (PF) 0.1 %-0.3 % drops in a dropperette RxNorm: 701293 Apply 1-2 Drop(s) Both eyes BID as needed 09/28/19 24 Inactive erythromycin 5 mg/gram (0.5 %) eye ointment RxNorm: 037347 Apply 1 Application Both eyes QHS every night at bedtime Instill ~1 cm ribbon into affected eye 09/28/19 24 Inactive acetaminophen 500 mg tablet RxNorm: 937157 (MAX APAP:4GM/24HR) Take 1 Tablet(s) Oral TID as needed for pain 09/24/19 24 Inactive carvedilol 25 mg tablet RxNorm: 014621 Take 1 Tablet(s) Oral QD 09/08/19 24 No Stop Date Active pregabalin 100 mg capsule RxNorm: 139207 Take 1 Capsule(s) Oral QAM every morning 09/07/19 24 024 Inactive bisacodyl 10 mg rectal suppository RxNorm: 634055 Insert 1 Suppository Rectal QD as needed 07/13/19 24 No Stop Date Active ketoconazole 2 % shampoo RxNorm: 095603 Apply 1 Application Topical UD as directed 07/13/19 24 No Stop Date Active Ozempic 1 mg/dose (4 mg/3 mL) subcutaneous pen injector RxNorm: 3865500 Inject 1 Milligram(s) Subcutaneous QW once a week 07/13/19 24 No Stop Date Active Guaifenesin AC 10 mg-100 mg/5 mL oral liquid RxNorm: 512405 Take 10 Milliliter(s) Oral Q4H every four hours as needed 07/13/19 24 No Stop Date Active hydrocortisone 2.5 % topical cream RxNorm: 899959 Apply 1 Application Topical BID as needed 07/13/19 24 No Stop Date Active rosuvastatin 40 mg tablet RxNorm: 623434 Take 1 Tablet(s) Oral QPM every evening 07/13/19 24 024 Inactive ezetimibe 10 mg tablet RxNorm: 692191 Take 1 Tablet(s) Oral QD 07/13/19 24 025 Inactive polyethylene glycol 3350 17 gram/dose oral powder RxNorm: 815868 Take 17 Gram(s) Oral BID as needed mix in 4-8ox water 07/13/19 24 025 Inactive aripiprazole 15 mg tablet RxNorm: 993685 Take 1/2 Tablet(s) Oral QD 07/13/19 24 024 Inactive isosorbide mononitrate ER 60 mg tablet,extended release 24 hr RxNorm: 204734 Take 1 Tablet(s) Oral QD 07/13/19 24 024 Inactive ammonium lactate 12 % topical cream RxNorm: 552053 Apply 1 Application Topical BID 07/13/19 24 025 Inactive rosuvastatin 20 mg sprinkle capsule RxNorm: 6366543 Take 1 Capsule(s) Oral QD 07/13/19 24 025 Inactive Vascepa 1 gram capsule RxNorm: 4460874 Take 2 Capsule(s) Oral BID 07/13/19 24 024 Inactive venlafaxine ER 75 mg capsule,extended release 24 hr RxNorm: 608421 Take 3 Capsule(s) Oral QD 07/13/19 24 024 Inactive Basaglar KwikPen U-100 Insulin 100 unit/mL (3 mL) subcutaneous RxNorm: 7442233 Inject 30U SubQ twice daily 07/07/19 24 024 Inactive Please dispense one month supply. Basaglar KwikPen U-100 Insulin 100 unit/mL (3 mL) subcutaneous RxNorm: 3649652 Inject 30U SubQ twice daily 07/07/19 24 024 Inactive Please dispense one month supply. pregabalin 150 mg capsule RxNorm: 248654 Take 1 Capsule(s) Oral QHS every night at bedtime 07/05/19 24 024 Inactive pregabalin 150 mg capsule RxNorm: 265889 Take 1 Capsule(s) Oral QHS every night at bedtime 02/ 024 Inactive polyethylene glycol 3350 17 gram/dose oral powder RxNorm: 248876 Take 1 Packet Oral QD as needed (1 packet = 17g) mix with 4-8oz of liquid 06/15/19 024 Inactive bisacodyl 10 mg rectal suppository RxNorm: 248621 Insert one suppository per rectum once daily as needed for constipation 06/15/19 024 Inactive bisacodyl 10 mg rectal suppository RxNorm: 656361 Insert one suppository per rectum once daily as needed for constipation 06/15/19 024 Inactive pregabalin 100 mg capsule RxNorm: 268586 Take 1 Capsule(s) Oral QAM every morning 04/27/20 024 Inactive Levemir FlexPen 100 unit/mL (3 mL) solution subcutaneous insulin pen RxNorm: 814246 Inject 30 Unit(s) Subcutaneous BID 04/27/20 024 Inactive rosuvastatin 40 mg tablet RxNorm: 613358 Take 1 Tablet(s) Oral QPM every evening 04/16/20 024 Inactive D/C rosuvastatin 20mg venlafaxine ER 75 mg capsule,extended release 24 hr RxNorm: 345770 Take 3 Capsule(s) Oral QD 04/14/20 023 Inactive pregabalin 100 mg capsule RxNorm: 696535 Take 1 Capsule(s) Oral QAM every morning [...] strip clotrimazole 1 % topical cream RxNorm: 356061 Take apply topically to abdominal folds twice daily for 14 days 03/12/20 024 Inactive Ozempic 1 mg/dose (4 mg/3 mL) subcutaneous pen injector RxNorm: 5747838 Inject 1 Milligram(s) Subcutaneous QW once a week 03/11/20 23 023 Inactive rosuvastatin 20 mg tablet RxNorm: 491214 Take 1 Tablet(s) Oral QD 02/26/20 23 023 Inactive d/c pravastatin 80mg Ozempic 1 mg/dose (4 mg/3 mL) subcutaneous pen injector RxNorm: 7769686 Inject 1 Milligram(s) Subcutaneous QW once a week 02/20/20 23 023 Inactive pregabalin 150 mg capsule RxNorm: 986673 Take 1 Capsule(s) Oral HS at bed time 02/19/20 23 023 Inactive pregabalin 100 mg capsule RxNorm: 895030 Take 1 Capsule(s) Oral QAM every morning 02/18/20 023 Inactive venlafaxine ER 75 mg capsule,extended release 24 hr RxNorm: 539659 Take 3 Capsule(s) Oral QD 02/04/20 23 023 Inactive FreeStyle Chema 2 Sensor kit RxNorm: use as directed 02/04/20 23 023 Inactive FreeStyle Chema 2 Sensor kit RxNorm: use as directed 02/04/20 23 024 Inactive fluconazole 150 mg tablet RxNorm: 969183 Take 1 Tablet(s) Oral on day 3 and on day 6 02/03/20 23 024 Inactive venlafaxine ER 150 mg capsule,extended release 24 hr RxNorm: 727075 Take 1 Capsule(s) Oral QD 02/03/20 23 023 Inactive chlorthalidone 25 mg tablet RxNorm: 548389 Take 1 Tablet(s) Oral QAM every morning 02/03/20 23 024 Inactive acetaminophen 500 mg tablet RxNorm: 480417 1 TABLET ORALLY 3 TIMES DAILY (MAX APAP:4GM/24HR) 12/15/19 23 023 Inactive potassium chloride ER 20 mEq tablet,extended release RxNorm: 815593 Take 1 Tablet(s) Oral BID 12/09/19 23 024 Inactive d/c 20mEq once daily (sent from hospital) clotrimazole 1 % topical cream RxNorm: 195044 apply 1g topically to top of feet and in between toes BID 12/09/19 23 025 Inactive nystatin 100,000 unit/gram topical powder RxNorm: 321216 APPLY TO AFFECTED AREAS TOPICALLY 2 TIMES DAILY 11/21/19 23 023 Inactive Nystop 100,000 unit/gram topical powder RxNorm: 998903 Apply to abd folds, under breasts and L side of groin Topical BID x 14 days, then BID PRN 11/20/19 023 Inactive dx: yeast dermatitis [place] Ultra Strength 4 %-30 %-10 % topical cream RxNorm: 810812 Apply 1 Gram(s) Topical QID PRN to feet and legs for neuropathic pain 11/11/19 024 Inactive clotrimazole 1 % topical cream RxNorm: 168293 Apply 1/2 Gram(s) Topical BID Apply to affected areas of groin, periarea, and abdominal topically 2 times daily 11/10/19 023 Inactive hydrocortisone 2.5 % topical cream RxNorm: 948025 Apply 1/2 Gram(s) Topical BID as needed 11/10/19 024 Inactive Levemir FlexPen 100 unit/mL (3 mL) solution subcutaneous insulin pen RxNorm: 093432 Inject 30 Unit(s) Subcutaneous BID 10/07/19 23 023 Inactive Humulin R U-500 (Concentrated) Insulin 500 unit/mL subcutaneous soln RxNorm: 236305 Inject 100 Unit(s) Subcutaneous TID 10/07/19 024 Inactive Ozempic 0.25 mg or 0.5 mg (2 mg/3 mL) subcutaneous pen injector RxNorm: 2329011 Inject 1/2 Milligram(s) Subcutaneous QW once a week 10/07/19 23 024 Inactive aripiprazole 15 mg tablet RxNorm: 298905 1/2 TAB (7.5MG) ORALLY DAILY (DX:MAJOR DEPRESSIVE DISORDER) 09/23/19 023 Inactive Accu-Chek Guide test strips RxNorm: Use 1 Test Strip QID 09/15/19 23 023 Inactive ok to substitute with any covered alternative test strip Lancets,Thin 28 gauge RxNorm: Use 1 as directed QID 09/15/19 23 023 Inactive torsemide 20 mg tablet RxNorm: 750862 Take 1 Tablet(s) Oral BID 09/09/19 23 024 Inactive d/c once daily dosing carvedilol 25 mg tablet RxNorm: 053995 Take 1 Tablet(s) Oral QD 08/25/19 23 024 Inactive pregabalin 150 mg capsule RxNorm: 235525 1 Capsule(s) Oral HS at bed time 08/18/19 23 023 Inactive pregabalin 100 mg capsule RxNorm: 117582 1 Capsule(s) Oral QAM every morning 08/18/19 23 023 Inactive carvedilol 25 mg tablet RxNorm: 004850 1 Tablet(s) Oral QD 07/28/19 23 023 Inactive lisinopril 20 mg tablet RxNorm: 243879 Give 1 Tablet(s) Oral QD 07/28/19 23 023 Inactive Lyrica 150 mg capsule RxNorm: 584981 Take 1 Capsule(s) Oral QHS every night at bedtime 07/19/19 23 023 Inactive d/c 100mg dose Diflucan 150 mg tablet RxNorm: 823312 Take 1 Tablet(s) Oral QD repeat on day 3 and 6 07/19/19 23 023 Inactive pregabalin 100 mg capsule RxNorm: 181477 Take 1 Capsule(s) Oral QAM every morning 07/19/19 23 023 Inactive gatifloxacin 0.5 % eye drops RxNorm: 709678 Instill 1 Drop(s) as directed TID Instill 1 drop in to affected eye(s) starting 1 day prior to surgery and continue until gone (do not exceed 4 weeks). 07/13/19 23 023 Inactive carvedilol 25 mg tablet RxNorm: 625640 2 Tablet(s) Oral BID 07/13/19 23 023 Inactive Humulin R Regular U-100 Insulin 100 unit/mL injection solution RxNorm: 487950 85 Unit(s) Injection TID 07/13/19 23 023 Inactive ketorolac 0.5 % eye drops RxNorm: 902884 Instill 1 Drop(s) as directed QID Instill 1 drop into affected eye(s) 4 times daily starting 1 day prior to surgery and continue until gone (do not exceed 4 weeks). 07/13/19 23 023 Inactive Diflucan 150 mg tablet RxNorm: 179244 Take 1 Tablet(s) Oral QD repeat on day 3 and 6 06/30/19 23 023 Inactive Accu-Chek Guide test strips RxNorm: Use 1 Test Strip QID Use 1 test strip to monitor blood glucose 4 times daily and as needed. Dx:E11.42. 06/23/19 23 023 Inactive ok to substitute with any covered alternative test strip dextromethorphan-gu aifenesin 10 mg-100 mg/5 mL oral liquid RxNorm: 643925 Take 10 Milliliter(s) Oral every 4 hours as needed for cough 06/19/19 23 023 Inactive dextromethorphan-gu aifenesin 10 mg-100 mg/5 mL oral liquid RxNorm: 160024 Take 10 Milliliter(s) Oral every 4 hours as needed for cough 06/19/19 23 023 Inactive Lyrica 150 mg capsule RxNorm: 092218 Take 1 Capsule(s) Oral QHS every night at bedtime 06/18/19 23 023 Inactive d/c 100mg dose aripiprazole 15 mg tablet RxNorm: 929602 /2 TAB (7.5MG) ORALLY DAILY (DX:MAJOR DEPRESSIVE DISORDER) 06/05/19 23 023 Inactive pregabalin 100 mg capsule RxNorm: 218912 1 Capsule(s) Oral QAM every morning 06/02/19 23 023 Inactive Banophen 50 mg capsule RxNorm: 2296251 Take 1 Capsule(s) Oral Q6H every 6 hours as needed 05/19/19 23 No Stop Date Active Novolog Flexpen U-100 Insulin aspart 100 unit/mL (3 mL) subcutaneous RxNorm: 5945670 Inject 10 Unit(s) Subcutaneous QHS every night at bedtime with nighttime snack 04/08/20 Inactive Novolog Flexpen U-100 Insulin aspart 100 unit/mL (3 mL) subcutaneous RxNorm: 2691030 Inject 42 Unit(s) Subcutaneous TID in addition to sliding scale 04/08/20 022 Inactive d/c 36u albuterol sulfate HFA 90 mcg/actuation aerosol inhaler RxNorm: 4857946 Take 2 Puff(s) Inhalation Q4H every four hours as needed as needed for SOB, cough, or wheezing 04/07/20 030 Active Banophen 50 mg capsule RxNorm: 1785190 Take 1 Capsule(s) Oral Q6H every 6 hours as needed 04/06/20 023 Inactive diphenhydramine 50 mg tablet RxNorm: 3047214 Take 1 Tablet(s) Oral Q6H every 6 hours as needed 04/06/20 022 Inactive diphenhydramine 50 mg tablet RxNorm: 4080317 1 Tablet(s) Oral Q6H every 6 hours as needed 04/06/20 022 Inactive Abilify 15 mg tablet RxNorm: 793727 1/2 Tablet(s) Oral QD 03/10/20 023 Inactive Shingrix (PF) 50 mcg/0.5 mL intramuscular suspension, kit RxNorm: 7099717 Administer 1/2 Milliliter(s) Intramuscular QD one time shingrix step 2 ( step 1 given 11/04/21) WITH needle - Nursing please administer upon arrival and once administered post a bridge message with date of administration, universal branch consultant, expiration date, and lot# so we can update [facility] 02/18/20 22 022 Inactive dispense with needle Shingrix (PF) 50 mcg/0.5 mL intramuscular suspension, kit RxNorm: 6852046 Administer 1/2 Milliliter(s) Intramuscular QD one time shingrix step 2 ( step 1 given 11/04/21) WITH needle - Nursing please administer upon arrival and once administered post a bridge message with date of administration, universal branch consultant, expiration date, and lot# so we can update [facility] 02/18/20 22 Inactive dispense with needle Lyrica 100 mg capsule RxNorm: 784055 Take 1 Capsule(s) Oral QAM every morning 01/08/20 22 022 Inactive d/c 50mg dose acetaminophen 500 mg tablet RxNorm: 444920 Take 1 Tablet(s) Oral TID 01/08/20 22 022 Inactive d/c PRN order Lyrica 150 mg capsule RxNorm: 977536 Take 1 Capsule(s) Oral QHS every night at bedtime 01/08/20 22 023 Inactive d/c 100mg dose polyethylene glycol 3350 17 gram/dose oral powder RxNorm: 745279 Take 17=1 capful Gram(s) Oral QD mix with 4-8oz of liquid 01/08/20 22 025 Inactive take this in addition to BID prn order Abilify 5 mg tablet RxNorm: 729133 Take 1 Tablet(s) Oral QD take 1 tab po QD #30 refill 5 dx: MDD 12/12/19 22 022 Inactive Abilify 5 mg tablet RxNorm: 053108 Take 1 Tablet(s) Oral QD take 1 tab po QD #30 refill 5 dx: MDD 12/12/19 22 022 Inactive Novolog Flexpen U-100 Insulin aspart 100 unit/mL (3 mL) subcutaneous RxNorm: 0702680 Inject 42 Unit(s) Subcutaneous TID in addition to sliding scale 12/10/19 22 022 Inactive d/c 36u chlorthalidone 25 mg tablet RxNorm: 532922 Take 1 Tablet(s) Oral QAM every morning 12/10/19 22 023 Inactive pregabalin 50 mg capsule RxNorm: 945071 Take 1 Capsule(s) Oral QAM every morning 11/12/19 22 022 Inactive tetanus-diphtheria toxoids-Td 2 Lf unit-2 Lf unit/0.5 mL IM suspension RxNorm: 139 Take 0.5 Miscellaneous Intramuscular 11/12/19 22 022 Inactive need tdap - nursing to administer upon arrival pregabalin 50 mg capsule RxNorm: 455558 Take 1 Capsule(s) Oral QAM every morning 10/16/19 22 022 Inactive pregabalin 50 mg capsule RxNorm: 144819 Take 1 Capsule(s) Oral QAM every morning 10/16/19 22 022 Inactive pregabalin 50 mg capsule RxNorm: 575877 1 Capsule(s) Oral QAM every morning 10/15/19 22 022 Inactive Shingrix (PF) 50 mcg/0.5 mL intramuscular suspension, kit RxNorm: 5218956 Administer 1/2 Milliliter(s) Intramuscular one time Nursing please administer upon arrival and once administered post a bridge message with date of administration, universal branch consultant, expiration date, and lot# so we can update [facility]. 10/09/19 22 022 Inactive shingrix step 1 Shingrix (PF) 50 mcg/0.5 mL intramuscular suspension, kit RxNorm: 0582973 Administer 1/2 Milliliter(s) Intramuscular one time Nursing please administer upon arrival and once administered post a bridge message with date of administration, universal branch consultant, expiration date, and lot# so we [...] aspart 100 unit/mL (3 mL) subcutaneous RxNorm: 6573725 Inject 10 Unit(s) Subcutaneous QHS every night at bedtime with nighttime snack 10/08/19 22 022 Inactive Shingrix (PF) 50 mcg/0.5 mL intramuscular suspension, kit RxNorm: 9768922 ADMINISTER 2-DOSE SERIES PER CDC GUIDELINES 10/08/19 22 022 Active Shingrix (PF) 50 mcg/0.5 mL intramuscular suspension, kit RxNorm: 7187337 ADMINISTER 2-DOSE SERIES PER CDC GUIDELINES 10/08/19 22 Inactive Novolog Flexpen U-100 Insulin aspart 100 unit/mL (3 mL) subcutaneous RxNorm: 6512779 Inject 36 Unit(s) Subcutaneous TID in addition to sliding scale 10/08/19 Inactive cholecalciferol (vitamin D3) 1,250 mcg (50,000 unit) capsule RxNorm: 373158 Take 1 Capsule(s) Oral QW once a week 10/08/19 Inactive Novofine Autocover 30 gauge x 1/3 needle RxNorm: Use 1 Miscellaneous UD as directed Use 1 needle as directed to administer insulin 5 times a day Dx:E11.42. 10/03/19 Inactive ok to substitute with any covered alternative pen needle benzoyl peroxide 10 % topical cleanser RxNorm: 788880 Apply 1 Application Topical QD apply to face, wash rinse and dry once daily (may change to QOD if drying) 08/19/19 022 Inactive (%covered by insurance) #60ml refill 11 dx: acne benzoyl peroxide 10 % topical cleanser RxNorm: 926396 Apply 1 Application Topical QD apply to face, wash rinse and dry once daily (may change to QOD if drying) 08/19/19 22 022 Inactive (%covered by insurance) #60ml refill 11 dx: acne benzoyl peroxide 10 % topical cleanser RxNorm: 281797 Apply 1 Application Topical QD apply to face, wash rinse and dry once daily (may change to QOD if drying) 08/19/19 22 022 Inactive (%covered by insurance) #60ml refill 11 dx: acne Lyrica 50 mg capsule RxNorm: 528343 Take 1 Capsule(s) Oral QAM every morning Take 1 capsule by mouth once daily 08/19/19 22 022 Inactive benzoyl peroxide 10 % topical cleanser RxNorm: 505969 Apply 1 Application Topical QD apply to face, wash rinse and dry once daily (may change to QOD if drying) 08/19/19 22 022 Inactive (%covered by insurance) #60ml refill 11 dx: acne Lyrica 100 mg capsule RxNorm: 729150 Take 1 Capsule(s) Oral QHS every night at bedtime Take 1 capsule by mouth once daily at bedtime 08/19/19 22 022 Inactive Lyrica 100 mg capsule RxNorm: 363012 Take 1 Capsule(s) Oral QHS every night at bedtime Take 1 capsule by mouth once daily at bedtime 08/16/19 22 022 Inactive Lyrica 50 mg capsule RxNorm: 947592 Take 1 Capsule(s) Oral QAM every morning Take 1 capsule by mouth once daily 08/16/19 22 022 Inactive Levemir FlexTouch U-100 Insulin 100 unit/mL (3 mL) subcutaneous pen RxNorm: 056283 Inject 86 Unit(s) Subcutaneous BID 08/05/19 22 022 Inactive d/c 83units BID Lyrica 100 mg capsule RxNorm: 642133 Take 1 Capsule(s) Oral QHS every night at bedtime Take 1 capsule by mouth once daily at bedtime 07/14/19 22 022 Inactive Lyrica 50 mg capsule RxNorm: 214845 Take 1 Capsule(s) Oral QAM every morning Take 1 capsule by mouth once daily 07/14/19 22 022 Inactive Levemir FlexTouch U-100 Insulin 100 unit/mL (3 mL) subcutaneous pen RxNorm: 640537 Inject 83 Unit(s) Subcutaneous BID 07/08/19 22 [...] test strip hydralazine 50 mg tablet RxNorm: 181394 Take 1 Tablet(s) Oral QID 05/05/20 21 022 Inactive venlafaxine ER 225 mg tablet,extended release 24 hr RxNorm: 105382 Take 1 Tablet(s) Oral QD 05/05/20 21 021 Inactive venlafaxine ER 225 mg tablet,extended release 24 hr RxNorm: 484350 Take 1 Tablet(s) Oral QD 05/05/20 21 022 Inactive isosorbide mononitrate ER 30 mg tablet,extended release 24 hr RxNorm: 242928 Take 1 Tablet(s) Oral QD 05/05/20 21 024 Inactive hydralazine 50 mg tablet RxNorm: 366033 Take 1 Tablet(s) Oral QID 05/05/20 21 021 Inactive aspirin 81 mg tablet,delayed release RxNorm: 671320 Take 1 Tablet(s) Oral QD 03/31/20 21 022 Inactive Vitamin D2 1,250 mcg (50,000 unit) capsule RxNorm: 6871443 Take 1 Capsule(s) Oral QW once a week x 12 weeks 03/31/20 022 Inactive Vitamin D2 1,250 mcg (50,000 unit) capsule RxNorm: 7948631 Take 1 Capsule(s) Oral QW once a week 03/31/20 021 Inactive Zetia 10 mg tablet RxNorm: 485481 Take 1 Tablet(s) Oral QD 03/31/20 024 Inactive Zetia 10 mg tablet RxNorm: 212905 Take 1 Tablet(s) Oral QD 03/31/20 021 Inactive hydralazine 25 mg tablet RxNorm: 483419 Take 1 Tablet(s) Oral QID 03/31/20 021 Inactive hydralazine 25 mg tablet RxNorm: 004475 Take 1 Tablet(s) Oral QID 03/31/20 021 Inactive hydralazine 10 mg tablet RxNorm: 909683 Take 1 Tablet(s) Oral QID 03/03/20 021 Inactive cephalexin 500 mg tablet RxNorm: 371743 Take 1 Tablet(s) Oral QID 02/27/20 021 Inactive cephalexin 500 mg tablet RxNorm: 964447 Take 1 Tablet(s) Oral QID 02/27/20 021 Inactive lisinopril 40 mg tablet RxNorm: 624307 Take 1 Tablet(s) Oral QD 02/11/20 023 Inactive Eliquis 5 mg tablet RxNorm: 0790896 Take 1 Tablet(s) Oral BID 01/05/20 21 025 Inactive Eliquis 5 mg tablet RxNorm: 6770232 Take 2 Tablet(s) Oral QD 01/01/20 21 021 Inactive Lyrica 50 mg capsule RxNorm: 324679 Take 1 Capsule(s) Oral QAM every morning 12/24/19 21 021 Inactive Lyrica 100 mg capsule RxNorm: 321420 Take 1 Capsule(s) Oral QHS every night at bedtime 12/24/19 021 Inactive clotrimazole 1 % topical cream RxNorm: 444049 Apply to right foot and toes Topical BID 12/04/19 21 023 Inactive metoprolol succinate ER 200 mg tablet,extended release 24 hr RxNorm: 840595 Take 1 Tablet(s) Oral QD 12/04/19 21 023 Inactive ciprofloxacin 500 mg tablet RxNorm: 752693 Take 1 Tablet(s) Oral QD 11/30/19 21 021 Inactive DX ofloxacin otic drops Accu-Chek Guide test strips RxNorm: USE 1 TO CHECK GLUCOSE 4 TIMES DAILY AND NEEDED 11/15/19 21 023 Inactive Blood Glucose Test strips RxNorm: Use 1 Test Strip QID at PRN 11/05/19 21 023 Inactive E11.42 lisinopril 30 mg tablet RxNorm: 473783 Take 1 Tablet(s) Oral QD 10/30/19 021 Inactive lisinopril 20 mg tablet RxNorm: 545088 Take 1 Tablet(s) Oral QD 10/23/19 21 021 Inactive lisinopril 20 mg tablet RxNorm: 866580 Take 1 Tablet(s) Oral QD 10/23/19 21 021 Inactive lisinopril 10 mg tablet RxNorm: 148782 Take 1 Tablet(s) Oral QD 10/02/19 21 021 Inactive icosapent ethyl 1 gram capsule RxNorm: 5587370 Take 2 Capsule(s) (2 gm) Oral BID with meals 09/12/19 024 Inactive Okay to dispense one 2gm tab if you have that available. icosapent ethyl 1 gram capsule RxNorm: 3629913 Take 2 Capsule(s) Oral BID 09/12/19 21 021 Inactive Okay to dispense one 2gm tab if you have that available. amlodipine 10 mg tablet RxNorm: 915104 Take 1 Tablet(s) Oral QD 09/04/19 21 021 Inactive aspirin 81 mg tablet,delayed release RxNorm: 147098 Take 1 Tablet(s) Oral QD 09/04/19 21 021 Inactive Levemir FlexTouch U-100 Insulin 100 unit/mL (3 mL) subcutaneous pen RxNorm: 725111 Inject 150 Unit(s) Subcutaneous BID 09/04/19 21 022 Inactive venlafaxine ER 150 mg tablet,extended release 24 hr RxNorm: 082940 Take 1 Tablet(s) Oral QD 09/04/19 021 Inactive clotrimazole-betame thasone 1 %-0.05 % topical cream RxNorm: 295688 Apply to rash on red area on left abdomen/chest Topical BID 08/10/19 21 Inactive amlodipine 5 mg tablet RxNorm: 535438 Take 1 Tablet(s) Oral QD 07/31/19 Inactive cephalexin 500 mg tablet RxNorm: 746229 Take 1 Tablet(s) Oral BID BID - Twice Daily 07/31/19 21 021 Inactive Start 08/01/20 pantoprazole 40 mg tablet,delayed release RxNorm: 024588 Take 1 Tablet(s) Oral QAM every morning 07/08/19 025 Inactive clopidogrel 75 mg tablet RxNorm: 511208 Take 1 Tablet(s) Oral QD 07/08/19 021 Inactive Blood Glucose Test strips RxNorm: Use 1 Test Strip QID at PRN 07/08/19 21 Inactive E11.42 senna 8.6 mg tablet RxNorm: 562323 Take 1 Tablet(s) Oral QD 07/08/19 025 Inactive Novolog Flexpen U-100 Insulin aspart 100 unit/mL (3 mL) subcutaneous RxNorm: 6991595 Administer per sliding scale Milliliter(s) Subcutaneous TID 151-200: 10 u; 201-250: 20 u; 251-300: 30 u; 301-350: 40 u; 351-400: 50 u. 07/08/19 21 022 Inactive lisinopril 5 mg tablet RxNorm: 313966 Take 1 Tablet(s) Oral QD 07/08/19 21 021 Inactive Novolog Flexpen U-100 Insulin aspart 100 unit/mL (3 mL) subcutaneous RxNorm: 9725540 Inject 85 Unit(s) Subcutaneous TID 07/08/19 21 022 Inactive pravastatin 80 mg tablet RxNorm: 762028 Take 1 Tablet(s) Oral QHS every night at bedtime 07/08/19 023 Inactive clotrimazole 1 % topical cream RxNorm: 121234 Apply to bilateral groin areas Topical BID 07/08/19 022 Inactive metoprolol succinate ER 200 mg tablet,extended release 24 hr RxNorm: 858026 Take 1 Tablet(s) Oral QD 07/08/19 21 021 Inactive Vitamin D3 25 mcg (1,000 unit) tablet RxNorm: 413926 Take 1 Tablet(s) Oral QD 07/08/19 21 021 Inactive isosorbide dinitrate 30 mg tablet RxNorm: 366249 Take 1 Tablet(s) Oral QD 07/08/19 21 021 Inactive carbamazepine 200 mg tablet RxNorm: 438445 Take 1 Tablet(s) Oral BID 07/08/19 21 025 Inactive Levemir FlexTouch U-100 Insulin 100 unit/mL (3 mL) subcutaneous pen RxNorm: 283257 Inject 140 Unit(s) Subcutaneous BID 07/08/19 021 Inactive torsemide 20 mg tablet RxNorm: 975706 Take 1 Tablet(s) Oral QD 07/08/19 21 023 Inactive venlafaxine 75 mg tablet RxNorm: 847455 Take 1 Tablet(s) Oral QD 07/08/19 021 Inactive acetaminophen 500 mg tablet RxNorm: 396480 Take 1 Tablet(s) Oral TID as needed for headache 06/18/19 21 021 Inactive acetaminophen 500 mg tablet RxNorm: 534614 Take 1 Tablet(s) Oral TID as needed for headache 06/18/19 21 021 Inactive Lyrica 100 mg capsule RxNorm: 701458 Take 1 Capsule(s) Oral QHS every night at bedtime 06/11/19 21 021 Inactive Lyrica 50 mg capsule RxNorm: 938416 Take 1 Capsule(s) Oral QAM every morning 06/10/19 21 021 Inactive hydrocortisone 2.5 % topical cream RxNorm: 201748 Apply to bilateral groin creases Topical BID 05/15/20 20 021 Inactive clotrimazole 1 % topical cream RxNorm: 377647 Apply to bilateral groin areas Topical BID 05/15/20 20 021 Inactive Lyrica 50 mg capsule RxNorm: 699105 Take 1 Capsule(s) Oral QAM every morning 05/14/20 20 020 Inactive Lyrica 100 mg capsule RxNorm: 613067 Take 1 Capsule(s) Oral QHS every night [...] Inactive Nystop 100,000 unit/gram topical powder RxNorm: 147923 Apply to abd folds, under breasts and L side of groin Topical BID x 14 days, then BID PRN 04/08/20 20 020 Inactive dx: yeast dermatitis Lyrica 100 mg capsule RxNorm: 801116 Take 1 Capsule(s) Oral QHS every night at bedtime 03/13/20 20 020 Inactive Lyrica 50 mg capsule RxNorm: 141031 Take 1 Capsule(s) Oral QAM every morning 03/13/20 20 020 Inactive ketoconazole 2 % shampoo RxNorm: 473121 Apply Topical two times a week with showers 03/11/20 20 024 Inactive cholecalciferol (vitamin D3) 50 mcg (2,000 unit) tablet RxNorm: 967465 Take 1 Tablet(s) Oral QD 03/11/20 20 021 Inactive Zetia 10 mg tablet RxNorm: 920112 Take 1 Tablet(s) Oral QD 03/07/20 20 021 Inactive Zetia 10 mg tablet RxNorm: 518141 Take 1 Tablet(s) Oral QD 03/07/20 20 020 Inactive Lyrica 50 mg capsule RxNorm: 949396 Take 1 Capsule(s) Oral QAM every morning 02/15/20 20 020 Inactive Lyrica 100 mg capsule RxNorm: 766580 Take 1 Capsule(s) Oral QHS every night at bedtime 02/15/20 Inactive Lyrica 100 mg capsule RxNorm: 253953 Take 1 Capsule(s) Oral QHS every night at bedtime 02/15/20 20 Inactive Lyrica 50 mg capsule RxNorm: 434752 Take 1 Capsule(s) Oral QAM every morning 02/15/20 020 Inactive venlafaxine ER 75 mg capsule,extended release 24 hr RxNorm: 432250 Take 3 Capsule(s) Oral QD 06/12/19 023 Inactive polyethylene glycol 3350 17 gram/dose oral powder RxNorm: 390791 Take 17=1 capful Gram(s) Oral BID as needed mix with 4-8oz of liquid 06/12/19 22 024 Inactive icosapent ethyl 1 gram capsule RxNorm: 4003419 Take 2 Capsule(s) (2 gm) Oral BID with meals 10/07/19 023 Inactive Okay to dispense one 2gm tab if you have that available. Levemir FlexTouch U-100 Insulin 100 unit/mL (3 mL) subcutaneous pen RxNorm: 050140 Inject 80 Unit(s) Subcutaneous BID 07/14/19 23 023 Inactive metoprolol succinate ER 200 mg tablet,extended release 24 hr RxNorm: 613387 Take 1 Tablet(s) Oral QD 08/12/19 23 025 Inactive loperamide 2 mg capsule RxNorm: 005310 Take 1 Capsule(s) Oral QID as needed 09/06/19 025 Inactive hydralazine 50 mg tablet RxNorm: 517328 Take 1 Tablet(s) Oral QID 08/12/19 025 Inactive Soft Touch Lancets RxNorm: miscellaneous 03/04/20 24 025 Inactive Novolog Flexpen U-100 Insulin aspart 100 unit/mL (3 mL) subcutaneous RxNorm: 5747726 Insert 30 Unit(s) Subcutaneous TID with meals [...] CVX: [id number] Vital Signs Date Vital 09/05/2024 BMI: NaN Code: 06785-3 Heart Rate 1: 86 bpm Code: 8867-4 Height: 5'6 Code: 8302-2 SpO2: 90% Temperature: 36.7 (C) / 98.0 (F) Weight: 390 lbs Code: 3141-9 Functional Status Functional / [...] Performer Location Location Address Codes Cristiano e ([id number]) Home Visit - Est Pt, moderate Diagnosis: Constipation by delayed colonic transit[ICD10: K59.01] Diagnosis: Hypokalemia[ICD10: E87.6] Diagnosis: Stage 2 chronic 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[ICD10: E11.22] Diagnosis: Type 2 diabetes mellitus with diabetic polyneuropathy, with long-term current use of insulin[ICD10: E11.42] Diagnosis: Loose stools[SNOMED: [id number]]Harrison MunsonThe [place] [address] [place] [address]IMY-5: [id number] Plan of Care Planned Activity Notes Codes Status Date Referral: [facility] [address] [facility] [place]ReferralAppointment Imcvoscta03/06/2025Patient Education: Patient Medication ItclthiQbvstixot46/22/2025Patient Education: AyzqsylucYuvlxmehb41/22/2025 Appointment: Harrison Munson WPtel: [address] [place]/08/08/2024ppointment: Harrison Munson WPtel: [address] [place]F/07/11/2024Referral: [facility]/Endocrinology WPtel: [address] [place], [place] [id number] USReferralNo Records Zmpfjhgs80/24/2025ppointment: Harrison Munson WPtel: [address] [facility] [address] [id number] USAWV02/08/2024ppointment: Harrison Munson WPtel: [address] [facility] 300 [id number] USF/U001/11/2024ppointment: Amber Sandra WPtel: [address] [facility] 300 [id number] [facility] Follow Up12/09/2022ppointment: Tapan Shirley WPtel: [address] [facility] 300 [id number] USTCM10/26/2022Referral: [facility] WPtel: [address], [address] [id number] USReferralRecords Bohxzilc22/08/2023ppointment: Tapan Shirley WPtel: [address] [facility] 300 [id number] USF/U008/11/2022ppointment: Tapan Shirley WPtel: [address] [facility] 300 [id number] USF/U007/14/2022ppointment: Tapan Shirley WPtel: [address] [facility] 300 [id number] USF/U002/10/2022eferral: [facility] WPtel: [address] [id number] NPAkrfffiaOuehpjonq19/12/2022Referral: General CardiologyReferralCompleted 1Referral: General PsychologistReferralClosedReferral: General PsychiatristReferralPatient/Family [...] Sister Jyotsna involved in his care cell# [phone] Guardian: Giulia (tapan met in person 09/01/21), [...] appointment 05.26.2024 with Jessa Webster MD at [facility]. Start Pioglitazone 15 mg QD. Stop Basaglar insulin. Increase Ozempic 2 mg once wkly. Continue Humalin R U-500 100 units with meals TID. FOLLOW UP 2 MONTHS. If BG >400 add 50 units to next scheduled dose of Humalin R U 500 insulin 06/12/2024 Loose stools constipation medication changed from scheduled to PRN last month continues to have loose stools no blood, cramping, pain, bloating Will order PRN medication to use - loperamide 2 mg capsule; Take 2 Capsule(s) Oral UD as directed Take 2 capsules after loose stool and then 1 capsule after each subsequent loose stool. Do not exceed4 doses in 24 hours. Do not administer until after 3 loose stools. Constipation by delayed colonic transit Last month changed scheduled bowel medication to PRN due to having loose stools.?? Follow up on BMs today?? Will continue PRN senna on day two of no BM and continue PRN miralax on day three of no BM.?? Monitor for worsening constipation or loose stools and adjust treatment plan accordingly. Staff to notify [facility] if they see signs of an ileus or bowel obstruction. Type 2 diabetes mellitus with diabetic polyneuropathy, with long-term current use of insulin Endocrinology appointment 05.26.2024 with Jessa Webster MD at [facility]. Started Pioglitazone 15 mg QD. Stop Basaglar insulin. ??Increase Ozempic 2 mg once wkly. Continue Humalin R U-500 100 units with meals TID. FOLLOW UP 2 MONTHS. If BG >400 add 50 units to nextscheduled dose of Humalin R U 500 insulin. Continue close follow up with new carpet cleaner. Last appt yesterday with endocrine - follow up now again in 2 months?? diabetic orders after endocrinology appt - Humulin 140 units with breafast and supper, 120 units with lunch, ozempic, and pioglitazone continued.?? Continue medication regimen set forth by specialty team. PCP will defer diabetes management for specialist PCP will follow up on BG log at each visit and consult nursing staff to ensure Peter has the neededsupplies for diabetes management, and continue to encourage healthy dietary intake and increased physical activity as able.?? Joint Creaser asked PCP for assistance in obtaining A1c and urine microalbumin lab work - will order today?? Hypokalemia Due for follow up lab work; will order BMP today.?? Continue current potassium supplementation.?? Stage 2 chronic 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 Due for follow up BMP - will order today?? Monitoring BMP every 3 months?? Last eGFR 82?? Control BP as appropriate for age, risk for falls, and life expectancy. Avoid nephrotoxic medications. Renal dose medications as appropriate..09/05/2024
--- OUTSIDE RECORDS SUMMARY | 2024-10-19 18:36 | XMS_ITS | CCD ---
Author Name Cecilio Durham Address [address] [place] [address] Phone Organization [facility] Phone Care Team Providers Care Pot Puncher Name Role Phone Harrison Durham Primary Care Provider Leona vailable Unavailable Chronic Care Management Unavaila ble Summary Purpose DataExchange Insurance Providers Payer name Policy type / Coverage type Covered constitution party ID Effective Begin Date Effective End Date Medicare [place] Medicare Part B [id number] Unknown Unknown Medicaid [place] Medicare Part B [id number] Unknown Unknown Family history Sister Brittany Suggs [...] on file 07/11/[address]: [id number] Never smoker 01/16 Sexually Active? Unknown No [...] Single 10/07/2021 Living arrangements Unknown Fdc 09/03/[address]: [id number] No Alcohol Consum ption 09/02/2020 Allergies, Adverse Reactions, Alerts Substance Reaction Codes Entered Date Inactivated Date Status * NO KNOWN FOOD ALLERGIES Ednvbbp7207/13/2023No Inactive DateActiveLISINOPRILRxNorm: 8712268 Inactive DateActiveMetformin OFzTlrughm33/28/2020 Inactive DateActive* NO KNOWN ENVIRONMENTAL NVKWCOAKSJvdbzwo07/27/2024 Inactive DateActive Problems Condition Codes Effective Dates Condition St atus Diabetic neuropathy associated with type 2 diabetes mellitus ICD-10: E11.40 ICD-9: 250.60025ActiveHemorrhoidsICD-10: K64.9 ICD-9: 455.6025ActiveLower extremity edemaICD-10: R60.0 ICD-9: 782.3025ActivePVD (peripheral vascular disease)ICD-10: I73.9 ICD-9: 443.9025ActiveType 2 diabetes mellitus with diabetic polyneuropathy, with long-term current use of insulinICD-10: E11.42 ICD-9: 250.60025ActiveCandidal intertrigoICD-10: B37.2 ICD-9: 112.301/5ActiveHyperlipidemia associated with type 2 diabetes mellitusICD-10: E11.69 ICD-9: 250.80015ActiveHypertensive heart disease without heart failure ICD-10: I11.9 ICD-9: 402.90015ActiveHypokalemiaICD-10: E87.6 ICD-9: 276.801/5ActiveOnychogryposisICD-10: L60.2 ICD-9: 703.801/5ActiveStage 2 chronic 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ICD-10: E11.22 ICD-9: 250.4001/5ActiveAdvance care planningICD-10: Z71.89 ICD-9: V65.49124ActiveBMI 60.0-69.9, adultICD-10: Z68.44 ICD-9: V85.4410/4ActiveLow back painICD-10: M54.50 ICD-9: 724.210/4ActiveParaparesis of both lower limbsICD-10: G82.20 ICD-9: 344.110/ctivePhysical deconditioningICD-10: R53.81 ICD-9: 799.310/ctiveAdvanced care planning - to document end of life hmtqrriqugzHtzuvab22/24/2024ctiveAmputated toe of right footICD-10: S98.131A ICD-9: 895.009ctiveAnnual physical examICD-10: Z00.00 ICD-9: V70.009ctiveConstipation by delayed colonic transitICD-10: K59.01 ICD-9: 564.0109ctiveHistory of anemia due to CKDICD-10: N18.9 ICD-9: 585.909/ctiveHx of deep venous thrombosisICD-10: Z86.718 ICD-9: V12.5109ctiveHypercoagulable stateICD-10: D68.59 ICD-9: 289.8109ctiveLearning disabilityICD-10: F81.9 ICD-9: 315.209/ctiveMajor depression, recurrentICD-10: F33.9 ICD-9: 296.3009ctivePressure ulcer of left calf, unstageableICD-10: L89.890 ICD-9: 707.0909ctiveReducible umbilical herniaICD-10: K42.9 ICD-9: 553.109/ctiveSeizure disorderICD-10: G40.909 ICD-9: 345.9009/ctiveVitamin D deficiencyICD-10: E55.9 ICD-9: 268.909ctiveCallus of heelICD-10: L84 ICD-9: 41614/esolvedGout due to renal impairmentICD-10: M10.30 ICD-9: 274.1005esolvedHyperhidrosis of palmsICD-10: L74.512 ICD-9: 705.21010/12/2023esolvedHyperlipidemia, unspecifiedICD-10: E78.5 ICD-9: 272.405/esolvedOther intermediate manager (current) drug therapyICD-10: Z79.899 ICD-9: V58.6905esolvedPain [...] tagICD-10: L91.8 ICD-9: 701.904esolvedCoronary artery disease involving alatna coronary artery of [place] heart, angina presence unspecifiedICD-10: I25.10 ICD-9: 414.0102/ctiveInappropriate sexual behaviorICD-10: Z72.89 ICD-9: 312.8910/ctivePre-op evaluationICD-10: Z01.818 ICD-9: V72.8403/28/2023ActiveSecondary hypertensionICD-10: I15.9 ICD-9: 405.9903ctiveDepressionICD-10: F32.9 ICD-9: 02544esolvedDVT (deep venous thrombosis)ICD-10: I82.409 ICD-9: 453.4009esolvedEncounter for [...] to other viral communicable diseasesICD-10: Z20.828 ICD-9: V01.79020827PuoiduqqNdllzcmeTheuuyj02/28/2020ActiveDiabetes mellitus Type 3Rtdhlau53/28/2020ActiveAnemia in chronic kidney diseaseICD-10: D63.1 02/12/2020ResolvedHyperlipidemia, unspecifiedICD-10: E78.Resolved Medications Medication Codes Instructions Start Date Stop Date Status Fill Instructions metoprolol succinate ER 200 mg tablet,extended release 24 hr RxNorm: 313341 Take 1 Tablet(s) Oral QD 06/19/19 25 No Stop Date Active pantoprazole 40 mg tablet,delayed release RxNorm: 205360 Take 1 Tablet(s) Oral QAM every morning 06/19/19 25 No Stop Date Active hydralazine 50 mg tablet RxNorm: 258842 Take 1 Tablet(s) Oral QID 06/19/19 25 No Stop Date Active carbamazepine 200 mg tablet RxNorm: 241992 Take 1 Tablet(s) Oral BID 06/19/19 25 No Stop Date Active amlodipine 10 mg tablet RxNorm: 615482 Take 1 Tablet(s) Oral QD 06/19/19 25 No Stop Date Active Eliquis 5 mg tablet RxNorm: 6707217 Take 1 Tablet(s) Oral BID 06/19/19 25 No Stop Date Active pen needle, diabetic 30 gauge x 3/16 RxNorm: Use 1 6 times per day w/insulin 06/14/19 25 026 Active pen needle, diabetic 30 gauge x 3/16 RxNorm: Use 1 needle 6 times per day w/insulin 06/14/19 25 025 Inactive nystatin 100,000 unit/gram topical powder RxNorm: 301489 Apply 1 Application Topical BID as needed abdominal/breast /groin folds 05/24/19 25 026 Active pregabalin 100 mg capsule RxNorm: 591168 Take 1 Capsule(s) Oral QAM every morning 05/22/19 25 025 Inactive nystatin 100,000 unit/gram topical powder RxNorm: 210080 Apply 1 Application Topical BID as needed abdominal/breast /groin folds 04/11/20 24 024 Inactive chlorthalidone 25 mg tablet RxNorm: 624851 Take 1 Tablet(s) Oral QAM every morning 04/06/20 24 No Stop Date Active pregabalin 150 mg capsule RxNorm: 667861 Take 1 Capsule(s) Oral QHS every night at bedtime 03/31/20 24 024 Inactive Vascepa 1 gram capsule RxNorm: 0662698 Take 2 Capsule(s) Oral BID 03/30/20 24 025 Active rosuvastatin 40 mg tablet RxNorm: 155542 1 TAB ORALLY EVERY EVENING (DX:CORONARY ARTERY DISEASE) 03/28/20 No Stop Date Active venlafaxine ER 75 mg capsule,extended release 24 hr RxNorm: 034553 3 CAPS (225MG) ORALLY DAILY (DX: MOOD DISORDER) 03/28/20 No Stop Date Active pregabalin 100 mg capsule RxNorm: 056994 Take 1 Capsule(s) Oral QAM every morning 03/20/20 Inactive cholecalciferol (vitamin D3) 1,250 mcg (50,000 unit) capsule RxNorm: 326452 Take 1 Capsule(s) Oral QW once a [...] Insulin 100 unit/mL (3 mL) subcutaneous RxNorm: 4598230 Inject 40 Unit(s) Subcutaneous BID 03/07/20 025 Inactive Please dispense one month supply. Humulin R U-500 (Concentrated) Insulin 500 unit/mL subcutaneous soln RxNorm: 555864 Inject 100 Unit(s) Subcutaneous AC before meals [...] PRN) to be use with new Accu Lincoln meter 03/04/20 Inactive ok to substitute with any covered alternative test strip FreeStyle Chema 2 Sensor kit RxNorm: Use UD as directed 03/02/20 Inactive Pen Needle 30 gauge x 5/16 RxNorm: Pen(s) Use 1 needle as directed TID 03/02/20 Inactive nystatin 100,000 unit/gram topical powder RxNorm: 722152 Apply 1 Application Topical BID as needed [...] 24 Inactive Pen Needle 30 gauge x 5/16 RxNorm: Pen(s) Use 1 needle as directed TID 03/02/20 024 Inactive Humulin R U-500 (Concentrated) Insulin 500 unit/mL subcutaneous soln RxNorm: 254759 Inject 100 Unit(s) Subcutaneous TID 02/17/20 24 024 Inactive Humulin R U-500 (Concentrated) Insulin 500 unit/mL subcutaneous soln RxNorm: 259998 Inject 100 Unit(s) Subcutaneous TID 02/10/20 24 024 Inactive Basaglar KwikPen U-100 Insulin 100 unit/mL (3 mL) subcutaneous RxNorm: 6871535 Inject 30 Unit(s) Subcutaneous BID 02/10/20 24 024 Inactive Please dispense one month supply. pregabalin 100 mg capsule RxNorm: 355827 Take 1 Capsule(s) Oral QAM every morning 02/07/20 24 024 Inactive isosorbide mononitrate ER 60 mg tablet,extended release 24 hr RxNorm: 952425 Take 1 Tablet(s) Oral QD 02/01/20 24 025 Active aripiprazole 15 mg tablet RxNorm: 963685 Take 1/2 Tablet(s) Oral QD 02/01/20 24 025 Active torsemide 20 mg tablet RxNorm: 692971 1 TAB ORALLY DAILY (DX: EDEMA) 01/27/20 No Stop Date Active potassium chloride ER 20 mEq tablet,extended release(part/cryst) RxNorm: 9153674 2 TABS (40MEQ) ORALLY TWICE DAILY (DX: HYPOKALEMIA) 01/27/20 24 025 Inactive cephalexin 500 mg capsule RxNorm: 242606 Take 1 Capsule(s) Oral QID 12/17/19 24 024 Inactive cephalexin 500 mg capsule RxNorm: 823764 Take 1 Capsule(s) Oral QID 12/17/19 24 024 Inactive acetaminophen 500 mg tablet RxNorm: 631944 (MAX APAP:4GM/24HR) Take 1 Tablet(s) Oral TID as needed for pain 12/10/19 24 024 Inactive torsemide 20 mg tablet RxNorm: 626032 Take 1 Tablet(s) Oral QD 10/26/19 24 Inactive potassium chloride ER 20 mEq tablet,extended release RxNorm: 907304 Take 2 Tablet(s) Oral BID 10/26/19 24 025 Inactive torsemide 20 mg tablet RxNorm: 118501 Take 1 Tablet(s) Oral QD 10/26/19 24 024 Inactive potassium chloride ER 20 mEq tablet,extended release RxNorm: 732018 Take 2 Tablet(s) Oral BID 10/26/19 24 024 Inactive Artificial Tears (PF) 0.1 %-0.3 % drops in a dropperette RxNorm: 478891 Apply 1-2 Drop(s) Both eyes BID as needed 09/28/19 24 025 Inactive erythromycin 5 mg/gram (0.5 %) eye ointment RxNorm: 237165 Apply 1 Application Both eyes QHS every night at bedtime Instill ~1 cm ribbon into affected eye 09/28/19 24 024 Inactive Artificial Tears (PF) 0.1 %-0.3 % drops in a dropperette RxNorm: 179746 Apply 1-2 Drop(s) Both eyes BID as needed 09/28/19 24 024 Inactive erythromycin 5 mg/gram (0.5 %) eye ointment RxNorm: 107161 Apply 1 Application Both eyes QHS every night at bedtime Instill ~1 cm ribbon into affected eye 09/28/19 24 Inactive acetaminophen 500 mg tablet RxNorm: 345102 (MAX APAP:4GM/24HR) Take 1 Tablet(s) Oral TID as needed for pain 09/24/19 24 Inactive carvedilol 25 mg tablet RxNorm: 608506 Take 1 Tablet(s) Oral QD 09/08/19 No Stop Date Active pregabalin 100 mg capsule RxNorm: 137524 Take 1 Capsule(s) Oral QAM every morning 09/07/19 24 024 Inactive ezetimibe 10 mg tablet RxNorm: 533350 Take 1 Tablet(s) Oral QD 07/13/19 24 025 Inactive bisacodyl 10 mg rectal suppository RxNorm: 504308 Insert 1 Suppository Rectal QD as needed 07/13/19 No Stop Date Active polyethylene glycol 3350 17 gram/dose oral powder RxNorm: 781076 Take 17 Gram(s) Oral BID as needed mix in 4-8ox water 07/13/19 24 025 Inactive ketoconazole 2 % shampoo RxNorm: 372673 Apply 1 Application Topical UD as directed 07/13/19 No Stop Date Active Ozempic 1 mg/dose (4 mg/3 mL) subcutaneous pen injector RxNorm: 4999874 Inject 1 Milligram(s) Subcutaneous QW once a week 07/13/19 24 No Stop Date Active Guaifenesin AC 10 mg-100 mg/5 mL oral liquid RxNorm: 207864 Take 10 Milliliter(s) Oral Q4H every four hours as needed 07/13/19 No Stop Date Active ammonium lactate 12 % topical cream RxNorm: 171091 Apply 1 Application Topical BID 07/13/19 24 025 Inactive hydrocortisone 2.5 % topical cream RxNorm: 086264 Apply 1 Application Topical BID as needed 07/13/19 No Stop Date Active rosuvastatin 20 mg sprinkle capsule RxNorm: 3157593 Take 1 Capsule(s) Oral QD 07/13/19 24 025 Inactive rosuvastatin 40 mg tablet RxNorm: 573011 Take 1 Tablet(s) Oral QPM every evening 07/13/19 24 024 Inactive aripiprazole 15 mg tablet RxNorm: 630440 Take 1/2 Tablet(s) Oral QD 07/13/19 24 024 Inactive isosorbide mononitrate ER 60 mg tablet,extended release 24 hr RxNorm: 786774 Take 1 Tablet(s) Oral QD 07/13/19 24 024 Inactive Vascepa 1 gram capsule RxNorm: 5953913 Take 2 Capsule(s) Oral BID 07/13/19 24 024 Inactive venlafaxine ER 75 mg capsule,extended release 24 hr RxNorm: 260300 Take 3 Capsule(s) Oral QD 07/13/19 24 024 Inactive Basaglar KwikPen U-100 Insulin 100 unit/mL (3 mL) subcutaneous RxNorm: 6858705 Inject 30U SubQ twice daily 07/07/19 24 024 Inactive Please dispense one month supply. Basaglar KwikPen U-100 Insulin 100 unit/mL (3 mL) subcutaneous RxNorm: 9136167 Inject 30U SubQ twice daily 07/07/19 24 024 Inactive Please dispense one month supply. pregabalin 150 mg capsule RxNorm: 699719 Take 1 Capsule(s) Oral QHS every night at bedtime 07/05/19 24 024 Inactive pregabalin 150 mg capsule RxNorm: 283382 Take 1 Capsule(s) Oral QHS every night at bedtime 07/05/19 24 024 Inactive polyethylene glycol 3350 17 gram/dose oral powder RxNorm: 789192 Take 1 Packet Oral QD as needed (1 packet = 17g) mix with 4-8oz of liquid 06/15/19 Inactive bisacodyl 10 mg rectal suppository RxNorm: 781821 Insert one suppository per rectum once daily as needed for constipation 06/15/19 024 Inactive bisacodyl 10 mg rectal suppository RxNorm: 234509 Insert one suppository per rectum once daily as needed for constipation 06/15/19 024 Inactive pregabalin 100 mg capsule RxNorm: 843730 Take 1 Capsule(s) Oral QAM every morning 04/27/20 024 Inactive Levemir FlexPen 100 unit/mL (3 mL) solution subcutaneous insulin pen RxNorm: 986853 Inject 30 Unit(s) Subcutaneous BID 04/27/20 024 Inactive rosuvastatin 40 mg tablet RxNorm: 577496 Take 1 Tablet(s) Oral QPM every evening 04/16/20 024 Inactive D/C rosuvastatin 20mg venlafaxine ER 75 mg capsule,extended release 24 hr RxNorm: 134079 Take 3 Capsule(s) Oral QD 04/14/20 023 Inactive pregabalin 100 mg capsule RxNorm: 260435 Take 1 Capsule(s) Oral QAM every morning [...] strip clotrimazole 1 % topical cream RxNorm: 350158 Take apply topically to abdominal folds twice daily for 14 days 03/12/20 024 Inactive Ozempic 1 mg/dose (4 mg/3 mL) subcutaneous pen injector RxNorm: 1291372 Inject 1 Milligram(s) Subcutaneous QW once a week 03/11/20 23 023 Inactive rosuvastatin 20 mg tablet RxNorm: 019208 Take 1 Tablet(s) Oral QD 02/26/20 23 023 Inactive d/c pravastatin 80mg Ozempic 1 mg/dose (4 mg/3 mL) subcutaneous pen injector RxNorm: 9139914 Inject 1 Milligram(s) Subcutaneous QW once a week 02/20/20 23 023 Inactive pregabalin 150 mg capsule RxNorm: 585005 Take 1 Capsule(s) Oral HS at bed time 02/19/20 23 023 Inactive pregabalin 100 mg capsule RxNorm: 343520 Take 1 Capsule(s) Oral QAM every morning 02/18/20 023 Inactive venlafaxine ER 75 mg capsule,extended release 24 hr RxNorm: 299985 Take 3 Capsule(s) Oral QD 02/04/20 23 023 Inactive FreeStyle Chema 2 Sensor kit RxNorm: use as directed 02/04/20 23 023 Inactive FreeStyle Cheam 2 Sensor kit RxNorm: use as directed 02/04/20 23 024 Inactive fluconazole 150 mg tablet RxNorm: 113145 Take 1 Tablet(s) Oral on day 3 and on day 6 02/03/20 23 024 Inactive venlafaxine ER 150 mg capsule,extended release 24 hr RxNorm: 254811 Take 1 Capsule(s) Oral QD 02/03/20 23 023 Inactive chlorthalidone 25 mg tablet RxNorm: 327991 Take 1 Tablet(s) Oral QAM every morning 02/03/20 23 024 Inactive acetaminophen 500 mg tablet RxNorm: 990389 1 TABLET ORALLY 3 TIMES DAILY (MAX APAP:4GM/24HR) 12/15/19 23 023 Inactive clotrimazole 1 % topical cream RxNorm: 310034 apply 1g topically to top of feet and in between toes BID 12/09/19 23 025 Inactive potassium chloride ER 20 mEq tablet,extended release RxNorm: 062994 Take 1 Tablet(s) Oral BID 12/09/19 024 Inactive d/c 20mEq once daily (sent from hospital) nystatin 100,000 unit/gram topical powder RxNorm: 159687 APPLY TO AFFECTED AREAS TOPICALLY 2 TIMES DAILY 11/21/19 023 Inactive Nystop 100,000 unit/gram topical powder RxNorm: 044433 Apply to abd folds, under breasts and L side of groin Topical BID x 14 days, then BID PRN 11/20/19 023 Inactive dx: yeast dermatitis Bengay Ultra Strength 4 %-30 %-10 % topical cream RxNorm: 891275 Apply 1 Gram(s) Topical QID PRN to feet and legs for neuropathic pain 11/11/19 024 Inactive clotrimazole 1 % topical cream RxNorm: 898258 Apply 1/2 Gram(s) Topical BID Apply to affected areas of groin, periarea, and abdominal topically 2 times daily 11/10/19 023 Inactive hydrocortisone 2.5 % topical cream RxNorm: 736835 Apply 1/2 Gram(s) Topical BID as needed 11/10/19 024 Inactive Levemir FlexPen 100 unit/mL (3 mL) solution subcutaneous insulin pen RxNorm: 033988 Inject 30 Unit(s) Subcutaneous BID 10/07/19 023 Inactive Humulin R U-500 (Concentrated) Insulin 500 unit/mL subcutaneous soln RxNorm: 583648 Inject 100 Unit(s) Subcutaneous TID 10/07/19 024 Inactive Ozempic 0.25 mg or 0.5 mg (2 mg/3 mL) subcutaneous pen injector RxNorm: 6381284 Inject 1/2 Milligram(s) Subcutaneous QW once a week 10/07/19 024 Inactive aripiprazole 15 mg tablet RxNorm: 718609 1/2 TAB (7.5MG) ORALLY DAILY (DX:MAJOR DEPRESSIVE DISORDER) 09/23/19 023 Inactive Accu-Chek Guide test strips RxNorm: Use 1 Test Strip QID 09/15/19 23 023 Inactive ok to substitute with any covered alternative test strip Lancets,Thin 28 gauge RxNorm: Use 1 as directed QID 09/15/19 23 023 Inactive torsemide 20 mg tablet RxNorm: 800585 Take 1 Tablet(s) Oral BID 09/09/19 23 024 Inactive d/c once daily dosing carvedilol 25 mg tablet RxNorm: 910665 Take 1 Tablet(s) Oral QD 08/25/19 23 024 Inactive pregabalin 150 mg capsule RxNorm: 315079 1 Capsule(s) Oral HS at bed time 08/18/19 23 023 Inactive pregabalin 100 mg capsule RxNorm: 887593 1 Capsule(s) Oral QAM every morning 08/18/19 23 023 Inactive carvedilol 25 mg tablet RxNorm: 312300 1 Tablet(s) Oral QD 07/28/19 23 023 Inactive lisinopril 20 mg tablet RxNorm: 693286 Give 1 Tablet(s) Oral QD 07/28/19 23 023 Inactive Lyrica 150 mg capsule RxNorm: 646282 Take 1 Capsule(s) Oral QHS every night at bedtime 07/19/19 23 023 Inactive d/c 100mg dose Diflucan 150 mg tablet RxNorm: 019043 Take 1 Tablet(s) Oral QD repeat on day 3 and 6 07/19/19 23 023 Inactive pregabalin 100 mg capsule RxNorm: 820682 Take 1 Capsule(s) Oral QAM every morning 07/19/19 23 023 Inactive gatifloxacin 0.5 % eye drops RxNorm: 908827 Instill 1 Drop(s) as directed TID Instill 1 drop in to affected eye(s) starting 1 day prior to surgery and continue until gone (do not exceed 4 weeks). 07/13/19 23 023 Inactive carvedilol 25 mg tablet RxNorm: 169480 2 Tablet(s) Oral BID 07/13/19 23 023 Inactive Humulin R Regular U-100 Insulin 100 unit/mL injection solution RxNorm: 343349 85 Unit(s) Injection TID 07/13/19 23 023 Inactive ketorolac 0.5 % eye drops RxNorm: 303970 Instill 1 Drop(s) as directed QID Instill 1 drop into affected eye(s) 4 times daily starting 1 day prior to surgery and continue until gone (do not exceed 4 weeks). 07/13/19 23 023 Inactive Diflucan 150 mg tablet RxNorm: 015555 Take 1 Tablet(s) Oral QD repeat on day 3 and 6 06/30/19 23 023 Inactive Accu-Chek Guide test strips RxNorm: Use 1 Test Strip QID Use 1 test strip to monitor blood glucose 4 times daily and as needed. Dx:E11.42. 06/23/19 23 023 Inactive ok to substitute with any covered alternative test strip dextromethorphan-gu aifenesin 10 mg-100 mg/5 mL oral liquid RxNorm: 117302 Take 10 Milliliter(s) Oral every 4 hours as needed for cough 06/19/19 23 023 Inactive dextromethorphan-gu aifenesin 10 mg-100 mg/5 mL oral liquid RxNorm: 473921 Take 10 Milliliter(s) Oral every 4 hours as needed for cough 06/19/19 23 023 Inactive Lyrica 150 mg capsule RxNorm: 770397 Take 1 Capsule(s) Oral QHS every night at bedtime 06/18/19 23 023 Inactive d/c 100mg dose aripiprazole 15 mg tablet RxNorm: 022567 /2 TAB (7.5MG) ORALLY DAILY (DX:MAJOR DEPRESSIVE DISORDER) 06/05/19 23 023 Inactive pregabalin 100 mg capsule RxNorm: 747778 1 Capsule(s) Oral QAM every morning 06/02/19 23 023 Inactive Banophen 50 mg capsule RxNorm: 0399500 Take 1 Capsule(s) Oral Q6H every 6 hours as needed 05/19/19 23 No Stop Date Active Novolog Flexpen U-100 Insulin aspart 100 unit/mL (3 mL) subcutaneous RxNorm: 2696532 Inject 10 Unit(s) Subcutaneous QHS every night at bedtime with nighttime snack 04/08/20 Inactive Novolog Flexpen U-100 Insulin aspart 100 unit/mL (3 mL) subcutaneous RxNorm: 0378700 Inject 42 Unit(s) Subcutaneous TID in addition to sliding scale 04/08/20 022 Inactive d/c 36u albuterol sulfate HFA 90 mcg/actuation aerosol inhaler RxNorm: 4427897 Take 2 Puff(s) Inhalation Q4H every four hours as needed as needed for SOB, cough, or wheezing 04/07/20 030 Active Banophen 50 mg capsule RxNorm: 5304911 Take 1 Capsule(s) Oral Q6H every 6 hours as needed 04/06/20 023 Inactive diphenhydramine 50 mg tablet RxNorm: 5390697 Take 1 Tablet(s) Oral Q6H every 6 hours as needed 04/06/20 022 Inactive diphenhydramine 50 mg tablet RxNorm: 5851472 1 Tablet(s) Oral Q6H every 6 hours as needed 04/06/20 022 Inactive Abilify 15 mg tablet RxNorm: 806789 1/2 Tablet(s) Oral QD 03/10/20 023 Inactive Shingrix (PF) 50 mcg/0.5 mL intramuscular suspension, kit RxNorm: 6810303 Administer 1/2 Milliliter(s) Intramuscular QD one time shingrix step 2 ( step 1 given 11/04/21) WITH needle - Nursing please administer upon arrival and once administered post a bridge message with date of administration, cook chili, expiration date, and lot# so we can update [facility] 02/18/20 22 022 Inactive dispense with needle Shingrix (PF) 50 mcg/0.5 mL intramuscular suspension, kit RxNorm: 0922018 Administer 1/2 Milliliter(s) Intramuscular QD one time shingrix step 2 ( step 1 given 11/04/21) WITH needle - Nursing please administer upon arrival and once administered post a bridge message with date of administration, cook chili, expiration date, and lot# so we can update [facility] 02/18/20 22 022 Inactive dispense with needle polyethylene glycol 3350 17 gram/dose oral powder RxNorm: 240628 Take 17=1 capful Gram(s) Oral QD mix with 4-8oz of liquid 01/08/20 22 025 Inactive take this in addition to BID prn order Lyrica 100 mg capsule RxNorm: 630314 Take 1 Capsule(s) Oral QAM every morning 01/08/20 22 022 Inactive d/c 50mg dose acetaminophen 500 mg tablet RxNorm: 628030 Take 1 Tablet(s) Oral TID 01/08/20 22 022 Inactive d/c PRN order Lyrica 150 mg capsule RxNorm: 941130 Take 1 Capsule(s) Oral QHS every night at bedtime 01/08/20 22 023 Inactive d/c 100mg dose Abilify 5 mg tablet RxNorm: 022029 Take 1 Tablet(s) Oral QD take 1 tab po QD #30 refill 5 dx: MDD 12/12/19 22 022 Inactive Abilify 5 mg tablet RxNorm: 467466 Take 1 Tablet(s) Oral QD take 1 tab po QD #30 refill 5 dx: MDD 12/12/19 22 022 Inactive Novolog Flexpen U-100 Insulin aspart 100 unit/mL (3 mL) subcutaneous RxNorm: 7581469 Inject 42 Unit(s) Subcutaneous TID in addition to sliding scale 12/10/19 22 022 Inactive d/c 36u chlorthalidone 25 mg tablet RxNorm: 913146 Take 1 Tablet(s) Oral QAM every morning 12/10/19 22 023 Inactive pregabalin 50 mg capsule RxNorm: 083192 Take 1 Capsule(s) Oral QAM every morning 11/12/19 22 022 Inactive tetanus-diphtheria toxoids-Td 2 Lf unit-2 Lf unit/0.5 mL IM suspension RxNorm: 139 Take 0.5 Miscellaneous Intramuscular 11/12/19 22 022 Inactive need tdap - nursing to administer upon arrival pregabalin 50 mg capsule RxNorm: 271146 Take 1 Capsule(s) Oral QAM every morning 10/16/19 22 022 Inactive pregabalin 50 mg capsule RxNorm: 430510 Take 1 Capsule(s) Oral QAM every morning 10/16/19 22 022 Inactive pregabalin 50 mg capsule RxNorm: 789398 1 Capsule(s) Oral QAM every morning 10/15/19 22 022 Inactive Shingrix (PF) 50 mcg/0.5 mL intramuscular suspension, kit RxNorm: 5920451 Administer 1/2 Milliliter(s) Intramuscular one time Nursing please administer upon arrival and once administered post a bridge message with date of administration, cook chili, expiration date, and lot# so we can update [facility]. 10/09/19 22 022 Inactive shingrix step 1 Shingrix (PF) 50 mcg/0.5 mL intramuscular suspension, kit RxNorm: 9877615 Administer 1/2 Milliliter(s) Intramuscular one time Nursing please administer upon arrival and once administered post a bridge message with date of administration, cook chili, expiration date, and lot# so we can [...] aspart 100 unit/mL (3 mL) subcutaneous RxNorm: 2215802 Inject 10 Unit(s) Subcutaneous QHS every night at bedtime with nighttime snack 10/08/19 22 022 Inactive Shingrix (PF) 50 mcg/0.5 mL intramuscular suspension, kit RxNorm: 1920475 ADMINISTER 2-DOSE SERIES PER CDC GUIDELINES 10/08/19 22 022 Active Shingrix (PF) 50 mcg/0.5 mL intramuscular suspension, kit RxNorm: 6661158 ADMINISTER 2-DOSE SERIES PER CDC GUIDELINES 10/08/19 22 Inactive Novolog Flexpen U-100 Insulin aspart 100 unit/mL (3 mL) subcutaneous RxNorm: 2392874 Inject 36 Unit(s) Subcutaneous TID in addition to sliding scale 10/08/19 022 Inactive cholecalciferol (vitamin D3) 1,250 mcg (50,000 unit) capsule RxNorm: 177104 Take 1 Capsule(s) Oral QW once a week 10/08/19 024 Inactive Novofine Autocover 30 gauge x 1/3 needle RxNorm: Use 1 Miscellaneous UD as directed Use 1 needle as directed to administer insulin 5 times a day Dx:E11.42. 10/03/19 22 022 Inactive ok to substitute with any covered alternative pen needle benzoyl peroxide 10 % topical cleanser RxNorm: 917362 Apply 1 Application Topical QD apply to face, wash rinse and dry once daily (may change to QOD if drying) 08/19/19 22 022 Inactive (%covered by insurance) #60ml refill 11 dx: acne benzoyl peroxide 10 % topical cleanser RxNorm: 176997 Apply 1 Application Topical QD apply to face, wash rinse and dry once daily (may change to QOD if drying) 08/19/19 022 Inactive (%covered by insurance) #60ml refill 11 dx: acne benzoyl peroxide 10 % topical cleanser RxNorm: 979214 Apply 1 Application Topical QD apply to face, wash rinse and dry once daily (may change to QOD if drying) 08/19/19 22 022 Inactive (%covered by insurance) #60ml refill 11 dx: acne Lyrica 50 mg capsule RxNorm: 807431 Take 1 Capsule(s) Oral QAM every morning Take 1 capsule by mouth once daily 08/19/19 22 022 Inactive benzoyl peroxide 10 % topical cleanser RxNorm: 220163 Apply 1 Application Topical QD apply to face, wash rinse and dry once daily (may change to QOD if drying) 08/19/19 22 022 Inactive (%covered by insurance) #60ml refill 11 dx: acne Lyrica 100 mg capsule RxNorm: 675092 Take 1 Capsule(s) Oral QHS every night at bedtime Take 1 capsule by mouth once daily at bedtime 08/19/19 22 022 Inactive Lyrica 100 mg capsule RxNorm: 860491 Take 1 Capsule(s) Oral QHS every night at bedtime Take 1 capsule by mouth once daily at bedtime 08/16/19 22 022 Inactive Lyrica 50 mg capsule RxNorm: 172717 Take 1 Capsule(s) Oral QAM every morning Take 1 capsule by mouth once daily 08/16/19 22 022 Inactive Levemir FlexTouch U-100 Insulin 100 unit/mL (3 mL) subcutaneous pen RxNorm: 424243 Inject 86 Unit(s) Subcutaneous BID 08/05/19 22 022 Inactive d/c 83units BID Lyrica 100 mg capsule RxNorm: 820794 Take 1 Capsule(s) Oral QHS every night at bedtime Take 1 capsule by mouth once daily at bedtime 07/14/19 22 022 Inactive Lyrica 50 mg capsule RxNorm: 703315 Take 1 Capsule(s) Oral QAM every morning Take 1 capsule by mouth once daily 07/14/19 22 022 Inactive Levemir FlexTouch U-100 Insulin 100 unit/mL (3 mL) subcutaneous pen RxNorm: 666798 Inject 83 Unit(s) Subcutaneous BID 07/08/19 22 [...] test strip hydralazine 50 mg tablet RxNorm: 496430 Take 1 Tablet(s) Oral QID 05/05/20 21 022 Inactive venlafaxine ER 225 mg tablet,extended release 24 hr RxNorm: 370149 Take 1 Tablet(s) Oral QD 05/05/20 21 021 Inactive venlafaxine ER 225 mg tablet,extended release 24 hr RxNorm: 718926 Take 1 Tablet(s) Oral QD 05/05/20 21 022 Inactive isosorbide mononitrate ER 30 mg tablet,extended release 24 hr RxNorm: 037753 Take 1 Tablet(s) Oral QD 05/05/20 21 024 Inactive hydralazine 50 mg tablet RxNorm: 354655 Take 1 Tablet(s) Oral QID 05/05/20 21 021 Inactive aspirin 81 mg tablet,delayed release RxNorm: 452357 Take 1 Tablet(s) Oral QD 03/31/20 21 022 Inactive Vitamin D2 1,250 mcg (50,000 unit) capsule RxNorm: 5014530 Take 1 Capsule(s) Oral QW once a week x 12 weeks 03/31/20 022 Inactive Vitamin D2 1,250 mcg (50,000 unit) capsule RxNorm: 3876001 Take 1 Capsule(s) Oral QW once a week 03/31/20 021 Inactive Zetia 10 mg tablet RxNorm: 300196 Take 1 Tablet(s) Oral QD 03/31/20 024 Inactive Zetia 10 mg tablet RxNorm: 178498 Take 1 Tablet(s) Oral QD 03/31/20 021 Inactive hydralazine 25 mg tablet RxNorm: 894935 Take 1 Tablet(s) Oral QID 03/31/20 021 Inactive hydralazine 25 mg tablet RxNorm: 096677 Take 1 Tablet(s) Oral QID 03/31/20 021 Inactive hydralazine 10 mg tablet RxNorm: 367483 Take 1 Tablet(s) Oral QID 03/03/20 021 Inactive cephalexin 500 mg tablet RxNorm: 561070 Take 1 Tablet(s) Oral QID 02/27/20 021 Inactive cephalexin 500 mg tablet RxNorm: 688901 Take 1 Tablet(s) Oral QID 02/27/20 021 Inactive lisinopril 40 mg tablet RxNorm: 509018 Take 1 Tablet(s) Oral QD 02/11/20 21 023 Inactive Eliquis 5 mg tablet RxNorm: 8419194 Take 1 Tablet(s) Oral BID 01/05/20 21 025 Inactive Eliquis 5 mg tablet RxNorm: 6496715 Take 2 Tablet(s) Oral QD 01/01/20 21 021 Inactive Lyrica 50 mg capsule RxNorm: 434303 Take 1 Capsule(s) Oral QAM every morning 12/24/19 21 021 Inactive Lyrica 100 mg capsule RxNorm: 946876 Take 1 Capsule(s) Oral QHS every night at bedtime 12/24/19 21 021 Inactive clotrimazole 1 % topical cream RxNorm: 637139 Apply to right foot and toes Topical BID 12/04/19 21 023 Inactive metoprolol succinate ER 200 mg tablet,extended release 24 hr RxNorm: 882639 Take 1 Tablet(s) Oral QD 12/04/19 21 023 Inactive ciprofloxacin 500 mg tablet RxNorm: 299220 Take 1 Tablet(s) Oral QD 11/30/19 21 021 Inactive DX ofloxacin otic drops Accu-Chek Guide test strips RxNorm: USE 1 TO CHECK GLUCOSE 4 TIMES DAILY AND NEEDED 11/15/19 21 023 Inactive Blood Glucose Test strips RxNorm: Use 1 Test Strip QID at PRN 11/05/19 21 023 Inactive E11.42 lisinopril 30 mg tablet RxNorm: 982176 Take 1 Tablet(s) Oral QD 10/30/19 21 021 Inactive lisinopril 20 mg tablet RxNorm: 646633 Take 1 Tablet(s) Oral QD 10/23/19 21 021 Inactive lisinopril 20 mg tablet RxNorm: 644018 Take 1 Tablet(s) Oral QD 10/23/19 21 021 Inactive lisinopril 10 mg tablet RxNorm: 107795 Take 1 Tablet(s) Oral QD 10/02/19 21 021 Inactive icosapent ethyl 1 gram capsule RxNorm: 8915754 Take 2 Capsule(s) (2 gm) Oral BID with meals 09/12/19 21 024 Inactive Okay to dispense one 2gm tab if you have that available. icosapent ethyl 1 gram capsule RxNorm: 7324589 Take 2 Capsule(s) Oral BID 09/12/19 21 021 Inactive Okay to dispense one 2gm tab if you have that available. amlodipine 10 mg tablet RxNorm: 729171 Take 1 Tablet(s) Oral QD 09/04/19 21 021 Inactive aspirin 81 mg tablet,delayed release RxNorm: 921958 Take 1 Tablet(s) Oral QD 09/04/19 21 021 Inactive Levemir FlexTouch U-100 Insulin 100 unit/mL (3 mL) subcutaneous pen RxNorm: 834214 Inject 150 Unit(s) Subcutaneous BID 09/04/19 21 022 Inactive venlafaxine ER 150 mg tablet,extended release 24 hr RxNorm: 522308 Take 1 Tablet(s) Oral QD 09/04/19 021 Inactive clotrimazole-betame thasone 1 %-0.05 % topical cream RxNorm: 733776 Apply to rash on red area on left abdomen/chest Topical BID 08/10/19 21 Inactive amlodipine 5 mg tablet RxNorm: 967293 Take 1 Tablet(s) Oral QD 07/31/19 Inactive cephalexin 500 mg tablet RxNorm: 205836 Take 1 Tablet(s) Oral BID BID - Twice Daily 07/31/19 021 Inactive Start 08/01/20 senna 8.6 mg tablet RxNorm: 818902 Take 1 Tablet(s) Oral QD 07/08/19 025 Inactive pantoprazole 40 mg tablet,delayed release RxNorm: 828153 Take 1 Tablet(s) Oral QAM every morning 07/08/19 025 Inactive clopidogrel 75 mg tablet RxNorm: 258732 Take 1 Tablet(s) Oral QD 07/08/19 021 Inactive Blood Glucose Test strips RxNorm: Use 1 Test Strip QID at PRN 07/08/19 Inactive E11.42 Novolog Flexpen U-100 Insulin aspart 100 unit/mL (3 mL) subcutaneous RxNorm: 5682207 Administer per sliding scale Milliliter(s) Subcutaneous TID 151-200: 10 u; 201-250: 20 u; 251-300: 30 u; 301-350: 40 u; 351-400: 50 u. 07/08/19 21 022 Inactive lisinopril 5 mg tablet RxNorm: 052002 Take 1 Tablet(s) Oral QD 07/08/19 021 Inactive Novolog Flexpen U-100 Insulin aspart 100 unit/mL (3 mL) subcutaneous RxNorm: 9137678 Inject 85 Unit(s) Subcutaneous TID 07/08/19 21 022 Inactive pravastatin 80 mg tablet RxNorm: 672921 Take 1 Tablet(s) Oral QHS every night at bedtime 07/08/19 023 Inactive clotrimazole 1 % topical cream RxNorm: 816627 Apply to bilateral groin areas Topical BID 07/08/19 21 022 Inactive metoprolol succinate ER 200 mg tablet,extended release 24 hr RxNorm: 974677 Take 1 Tablet(s) Oral QD 07/08/19 021 Inactive Vitamin D3 25 mcg (1,000 unit) tablet RxNorm: 043280 Take 1 Tablet(s) Oral QD 07/08/19 21 021 Inactive isosorbide dinitrate 30 mg tablet RxNorm: 764656 Take 1 Tablet(s) Oral QD 07/08/19 21 021 Inactive carbamazepine 200 mg tablet RxNorm: 668382 Take 1 Tablet(s) Oral BID 07/08/19 21 025 Inactive Levemir FlexTouch U-100 Insulin 100 unit/mL (3 mL) subcutaneous pen RxNorm: 514182 Inject 140 Unit(s) Subcutaneous BID 07/08/19 021 Inactive torsemide 20 mg tablet RxNorm: 421755 Take 1 Tablet(s) Oral QD 07/08/19 023 Inactive venlafaxine 75 mg tablet RxNorm: 950155 Take 1 Tablet(s) Oral QD 07/08/19 021 Inactive acetaminophen 500 mg tablet RxNorm: 139256 Take 1 Tablet(s) Oral TID as needed for headache 06/18/19 21 021 Inactive acetaminophen 500 mg tablet RxNorm: 824730 Take 1 Tablet(s) Oral TID as needed for headache 06/18/19 21 021 Inactive Lyrica 100 mg capsule RxNorm: 201954 Take 1 Capsule(s) Oral QHS every night at bedtime 06/11/19 21 021 Inactive Lyrica 50 mg capsule RxNorm: 116848 Take 1 Capsule(s) Oral QAM every morning 06/10/19 21 021 Inactive hydrocortisone 2.5 % topical cream RxNorm: 611422 Apply to bilateral groin creases Topical BID 05/15/20 20 021 Inactive clotrimazole 1 % topical cream RxNorm: 863135 Apply to bilateral groin areas Topical BID 05/15/20 20 Inactive Lyrica 50 mg capsule RxNorm: 725038 Take 1 Capsule(s) Oral QAM every morning 05/14/20 20 020 Inactive Lyrica 100 mg capsule RxNorm: 894195 Take 1 Capsule(s) Oral QHS every night [...] Inactive Nystop 100,000 unit/gram topical powder RxNorm: 066232 Apply to abd folds, under breasts and L side of groin Topical BID x 14 days, then BID PRN 04/08/20 20 020 Inactive dx: yeast dermatitis Lyrica 100 mg capsule RxNorm: 572414 Take 1 Capsule(s) Oral QHS every night at bedtime 03/13/20 20 Inactive Lyrica 50 mg capsule RxNorm: 982882 Take 1 Capsule(s) Oral QAM every morning 03/13/20 20 020 Inactive ketoconazole 2 % shampoo RxNorm: 227560 Apply Topical two times a week with showers 03/11/20 20 024 Inactive cholecalciferol (vitamin D3) 50 mcg (2,000 unit) tablet RxNorm: 159345 Take 1 Tablet(s) Oral QD 03/11/20 20 021 Inactive Zetia 10 mg tablet RxNorm: 117693 Take 1 Tablet(s) Oral QD 03/07/20 20 021 Inactive Zetia 10 mg tablet RxNorm: 957135 Take 1 Tablet(s) Oral QD 03/07/20 20 Inactive Lyrica 50 mg capsule RxNorm: 055823 Take 1 Capsule(s) Oral QAM every morning 02/15/20 20 Inactive Lyrica 100 mg capsule RxNorm: 877617 Take 1 Capsule(s) Oral QHS every night at bedtime 02/15/20 Inactive Lyrica 100 mg capsule RxNorm: 122618 Take 1 Capsule(s) Oral QHS every night at bedtime 02/15/20 20 Inactive Lyrica 50 mg capsule RxNorm: 910442 Take 1 Capsule(s) Oral QAM every morning 02/15/20 20 020 Inactive loperamide 2 mg capsule RxNorm: 835139 Take 1 Capsule(s) Oral QID as needed 09/06/19 25 025 Inactive venlafaxine ER 75 mg capsule,extended release 24 hr RxNorm: 807195 Take 3 Capsule(s) Oral QD 06/12/19 22 023 Inactive polyethylene glycol 3350 17 gram/dose oral powder RxNorm: 119890 Take 17=1 capful Gram(s) Oral BID as needed mix with 4-8oz of liquid 06/12/19 22 024 Inactive icosapent ethyl 1 gram capsule RxNorm: 5577357 Take 2 Capsule(s) (2 gm) Oral BID with meals 10/07/19 23 023 Inactive Okay to dispense one 2gm tab if you have that available. Levemir FlexTouch U-100 Insulin 100 unit/mL (3 mL) subcutaneous pen RxNorm: 866267 Inject 80 Unit(s) Subcutaneous BID 07/14/19 23 023 Inactive metoprolol succinate ER 200 mg tablet,extended release 24 hr RxNorm: 371703 Take 1 Tablet(s) Oral QD 08/12/19 025 Inactive hydralazine 50 mg tablet RxNorm: 995666 Take 1 Tablet(s) Oral QID 08/12/19 025 Inactive Soft Touch Lancets RxNorm: miscellaneous 03/04/20 025 Inactive Novolog Flexpen U-100 Insulin aspart 100 unit/mL (3 mL) subcutaneous RxNorm: 7176700 Insert 30 Unit(s) Subcutaneous TID with meals [...] Date SYS BP LESS 140 CPT-4: G8752 07/11/2024 CUI BP LESS 90 CPT-4: G8754 07/11/2024 Vital Signs Date Vital 07/11/2024 Blood Pressure 1: 128/78 Code: 8480-6 Blood Pressure 2: NaN/NaN Code: 8480-6 Heart Rate 1: 86 bpm Code: 8867-4 SpO2: 94% Temperature: 36.6 (C) / 97.8 (F) Functional Status Functional / Cognitive Codes [...] Performer Location Location Address Codes Cristiano e ([id number]) Home or Residence Vi sit Est Pt - Moderate Level, 40 mins Diagnosis: Diabetic neuropathy associated with type 2 diabetes mellitus[ICD10: E11.40] Diagnosis: Lower extremity edema[ICD10: R60.0] Diagnosis: PVD (peripheral vascular disease)[ICD10: I73.9] Diagnosis: Type 2 diabetes mellitus with diabetic polyneuropathy, with long-term current use of insulin[ICD10: E11.42] Diagnosis: Hemorrhoids[ICD10: K64.9]Harrison Stewart [place] [id number] [place] [id number]-6: 111589307/11/2024 Plan of Care Planned Activity Notes Codes Status Date Referral: [facility] [address] [id number] [place]ReferralAppointment Phtdopfci50/06/2025Patient Education: Patient Medication EbrcmaxJqiaqcprw89/25/2025Patient Education: PkwsmggypDjhbertmc62/25/2025 Referral: [facility]/Endocrinology WPtel: 3 [facility] 3 [id number] USReferralNo Records Gypssdyv25/24/2025ppointment: Harrison Munson WPtel: [address] [place], [place] [id number] [facility]02/08/2024ppointment: Harrison Munson WPtel: [address] [facility] 300 [id number] USF/U001/11/2024ppointment: Sandra Clark WPtel: [address] [facility] 300 [id number] [facility] Psych Follow Up12/09/2022ppointment: Tapan Shirley WPtel: [address] [facility] 300 [id number] [facility]Referral: [facility] WPtel: [address] , [address] [id number] USReferralRecords Omanyspr94/08/2023ppointment: Tapan Shirley WPtel: [address] [facility] 300 [id number] USF/U008/11/2022ppointment: Tapan Shirley WPtel: [address] [facility] 300 [id number] US/U007/14/2022ppointment: Tapan Shirley WPtel: [address] [facility] 300 [id number] [place]/02/10/2022eferral: [facility] WPtel: [address] [id number] EPIucmjjpiCbkvreohk16/12/2022Referral: General CardiologyReferralCompleted 1Referral: General PsychologistReferralClosedReferral: General PsychiatristReferralPatient/Family [...] Sister Jyotsna involved in his care cell# [phone] Guardian: Giulia (tapan met in person 09/01/21), [...] appointment 05.26.2024 with Jessa Webster MD at [facility]. Start Pioglitazone 15 mg QD. Stop Basaglar insulin. Increase Ozempic 2 mg once wkly. Continue Humalin R U-500 100 units with meals TID. FOLLOW UP 2 MONTHS. If BG >400 add 50 units to next scheduled dose of Humalin R U 500 insulin 06/12/2024 Guardian called yesterday to discuss APCM - not in the office. Guardian called today after our visit - no answer.?? Will make note to call back at another time to discuss APCM program.?? Lower extremity edema Chronic non pitting edema Compression socks daily and elevation of legs when sitting Continue Torsemide 20 mg QD and potassium 40mEq BID supplementation Monitor at each visit for skin integrity concerns Proper hygiene is important?? Hemorrhoids Had specialty appointment - no new recommendations No longer struggling with hemorrhoids at this time Continue to monitor?? 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 Started Pioglitazone 15 mg QD. Stop Basaglar insulin. ??Increase Ozempic 2 mg once wkly. Continue Humalin R U-500 100 units with meals TID. FOLLOW UP 2 MONTHS. If BG >400 add 50 units to nextscheduled dose of Humalin R U 500 insulin. 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 Continue medication regimen set forth by specialty team. PCP will defer diabetes management for specialist although will follow up on BG log at each visit and continue to encourage healthy dietary intake and increased physical activity as able.??.07/11/2024
--- OUTSIDE RECORDS SUMMARY | 2024-10-19 18:38 | XMS_ITS | CCD ---
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 Health Lead Name Role Phone Arpit VIDALKeeganHarrison Primary Care Provider Leona vailable Unavailable Chronic Care Management Unavaila ble Summary Purpose DataExchange Insurance Providers Payer name Policy type / Coverage type Covered republican ID Effective Begin Date Effective End Date [place] [id number] Unknown Unknown Medicaid [place] Part B [id number] Unknown Unknown Family history Sister Brittany Suggs Diagnosis Age At Onset No Family Disease Entered N/A Runs in the family Diagnosis Age At Onset No Known Diseases N/A Sister Blanka Mcdfufie Diagnosis Age At Onset No Family Disease Entered N/A Social History Social History Element Codes Description Effec tive Dates Tobacco history SNOMED CT: 236672666 Never smoker 01/16 Sexually Active? Unknown No [...] Mcc 09/03/[address]: 632491683 No Alcohol Consum ption 09/02/2020 Allergies, Adverse Reactions, Alerts Substance Reaction Codes Entered Date Inactivated Date Status * NO KNOWN FOOD ALLERGIES Vvyuqwz3907/13/2023No Inactive DateActiveLISINOPRILRxNorm: 3882452No Inactive DateActiveMetformin VNqAbsuykz25/28/2020No Inactive DateActive* NO KNOWN ENVIRONMENTAL EWEHZSYTYYszlysi73/27/2024No Inactive DateActive Problems Condition Codes Effective Dates [...] planning - to document end of life [id number] toe of right footICD-10: S98.131A ICD-9: 895.009/ctiveAnnual [...] E55.9 ICD-9: 268.909/ctiveCallus of heelICD-10: L84 ICD-9: 59732/esolvedGout due to renal impairmentICD-10: M10.30 ICD-9: 274.1005/esolvedHyperhidrosis of palmsICD-10: L74.512 ICD-9: 705.21010/12/2023esolvedHyperlipidemia, unspecifiedICD-10: E78.5 ICD-9: 272.405/esolvedOther superintendent terminal (current) drug therapyICD-10: Z79.899 ICD-9: V58.6905esolvedPain of [...] tagICD-10: L91.8 ICD-9: 701.904esolvedCoronary artery disease involving [place] coronary artery of [place] heart, angina presence unspecifiedICD-10: I25.10 ICD-9: 414.0102/ctiveInappropriate sexual behaviorICD-10: Z72.89 ICD-9: 312.8910/ctivePre-op evaluationICD-10: Z01.818 ICD-9: V72.8403/ctiveSecondary hypertensionICD-10: I15.9 ICD-9: 405.9903/ctiveDepressionICD-10: F32.9 ICD-9: 40162/esolvedDVT (deep venous thrombosis)ICD-10: I82.409 ICD-9: 453.4009/2ResolvedEncounter for [...] to other viral communicable diseasesICD-10: Z20.828 ICD-9: V01.79022783RxelrxycWmxrygmfXtcjwds88/28/2020ActiveDiabetes mellitus Type 7Owyibxe20/28/2020ActiveAnemia in chronic kidney diseaseICD-10: D63.1 02/12/2020ResolvedHyperlipidemia, unspecifiedICD-10: E78.509Resolved Medications Medication Codes Instructions Start Date Stop Date Status Fill Instructions pen needle, diabetic 30 gauge x 316 RxNorm: Use 1 needle 6 times per day w/insulin 06/14/19 25 025 Inactive pen needle, diabetic 30 gauge x 316 RxNorm: Use 1 6 times per day w/insulin 06/14/19 25 026 Active nystatin 100,000 unit/gram topical powder RxNorm: 566794 Apply 1 Application Topical BID as needed abdominal/breast /groin folds 05/24/19 026 Active pregabalin 100 mg capsule RxNorm: 213168 Take 1 Capsule(s) Oral QAM every morning 05/22/19 025 Inactive nystatin 100,000 unit/gram topical powder RxNorm: 155613 Apply 1 Application Topical BID as needed abdominal/breast /groin folds 04/11/20 024 Inactive chlorthalidone 25 mg tablet RxNorm: 368293 Take 1 Tablet(s) Oral QAM every morning 04/06/20 No Stop Date Active pregabalin 150 mg capsule RxNorm: 690274 Take 1 Capsule(s) Oral QHS every night at bedtime 03/31/20 024 Inactive Vascepa 1 gram capsule RxNorm: 2974881 Take 2 Capsule(s) Oral BID 03/30/20 025 Active rosuvastatin 40 mg tablet RxNorm: 977507 1 TAB ORALLY EVERY EVENING (DX:CORONARY ARTERY DISEASE) 03/28/20 No Stop Date Active venlafaxine ER 75 mg capsule,extended release 24 hr RxNorm: 348825 3 CAPS (225MG) ORALLY DAILY (DX: MOOD DISORDER) 03/28/20 No Stop Date Active pregabalin 100 mg capsule RxNorm: 701350 Take 1 Capsule(s) Oral QAM every morning 03/20/20 024 Inactive cholecalciferol (vitamin D3) 1,250 mcg (50,000 unit) capsule RxNorm: 101463 Take 1 Capsule(s) Oral QW once a week 03/15/20 025 Active Lancets,Thin 28 gauge RxNorm: Use 1 as directed TID lancet 03/08/20 024 Inactive Lancets,Thin 28 gauge RxNorm: Use 1 as directed TID lancet 03/08/20 024 Inactive Pen Needle 30 gauge x 5/16 RxNorm: Pen(s) Use 1 needle as directed TID 03/08/20 025 Inactive Accu-Chek Guide Glucose Meter RxNorm: Use 1 Miscellaneous UD as directed Use glucose meter to monitor blood glucose 3 times daily. Dx:E11.42 03/08/20 24 Inactive Accu-Chek Guide test strips RxNorm: Use 1 Test Strip TID to test Blood glucose 03/08/20 Inactive ok to substitute with any covered alternative test strip Accu-Chek Guide test strips RxNorm: Use 1 Test Strip TID to test BS 03/08/20 Inactive ok to substitute with any covered alternative test strip Tusharagldestin MendenhallPen U-100 Insulin 100 unit/mL (3 mL) subcutaneous RxNorm: 2511961 Inject 40 Unit(s) Subcutaneous BID 03/07/20 025 Inactive Please dispense one month supply. Humulin R U-500 (Concentrated) Insulin 500 unit/mL subcutaneous soln RxNorm: 585276 Inject 100 Unit(s) Subcutaneous AC before meals [...] PRN) to be use with new Accu [place] meter 03/04/20 Inactive ok to substitute with any covered alternative test strip FreeStyle Chema 2 Sensor kit RxNorm: Use UD as directed 03/02/20 24 025 Inactive FreeStyle Chema 2 Sensor kit RxNorm: Use UD as directed 03/02/20 024 Inactive Pen Needle 30 gauge x 16 RxNorm: Pen(s) Use 1 needle as directed TID 03/02/20 Inactive nystatin 100,000 unit/gram topical powder RxNorm: 619905 Apply 1 Application Topical BID as needed [...] (Concentrated) Insulin 500 unit/mL subcutaneous soln RxNorm: 436446 Inject 100 Unit(s) Subcutaneous TID 02/17/20 24 024 Inactive Humulin R U-500 (Concentrated) Insulin 500 unit/mL subcutaneous soln RxNorm: 932401 Inject 100 Unit(s) Subcutaneous TID 02/10/20 24 024 Inactive Basaglar KwikPen U-100 Insulin 100 unit/mL (3 mL) subcutaneous RxNorm: 6168199 Inject 30 Unit(s) Subcutaneous BID 02/10/20 24 024 Inactive Please dispense one month supply. pregabalin 100 mg capsule RxNorm: 380222 Take 1 Capsule(s) Oral QAM every morning 02/07/20 24 024 Inactive isosorbide mononitrate ER 60 mg tablet,extended release 24 hr RxNorm: 357201 Take 1 Tablet(s) Oral QD 02/01/20 24 025 Active aripiprazole 15 mg tablet RxNorm: 087154 Take 1/2 Tablet(s) Oral QD 02/01/20 24 025 Active torsemide 20 mg tablet RxNorm: 699271 1 TAB ORALLY DAILY (DX: EDEMA) 01/27/20 24 No Stop Date Active potassium chloride ER 20 mEq tablet,extended release(part/cryst) RxNorm: 1073111 2 TABS (40MEQ) ORALLY TWICE DAILY (DX: HYPOKALEMIA) 01/27/20 24 025 Inactive cephalexin 500 mg capsule RxNorm: 509271 Take 1 Capsule(s) Oral QID 12/17/19 24 024 Inactive cephalexin 500 mg capsule RxNorm: 725787 Take 1 Capsule(s) Oral QID 12/17/19 24 08/02/2 024 Inactive acetaminophen 500 mg tablet RxNorm: 959124 (MAX APAP:4GM/24HR) Take 1 Tablet(s) Oral TID as needed for pain 12/10/19 24 Inactive torsemide 20 mg tablet RxNorm: 19821114 Take 1 Tablet(s) Oral QD 10/26/19 24 Inactive potassium chloride ER 20 mEq tablet,extended release RxNorm: 19800522 Take 2 Tablet(s) Oral BID 10/26/19 24 Inactive torsemide 20 mg tablet RxNorm: 767483 Take 1 Tablet(s) Oral QD 10/26/19 24 Inactive potassium chloride ER 20 mEq tablet,extended release RxNorm: 19800522 Take 2 Tablet(s) Oral BID 10/26/19 24 Inactive Artificial Tears (PF) 0.1 %-0.3 % drops in a dropperette RxNorm: 141103 Apply 1-2 Drop(s) Both eyes BID as needed 09/28/19 24 Inactive erythromycin 5 mg/gram (0.5 %) eye ointment RxNorm: 755779 Apply 1 Application Both eyes QHS every night at bedtime Instill ~1 cm ribbon into affected eye 09/28/19 24 Inactive Artificial Tears (PF) 0.1 %-0.3 % drops in a dropperette RxNorm: 074464 Apply 1-2 Drop(s) Both eyes BID as needed 09/28/19 24 Inactive erythromycin 5 mg/gram (0.5 %) eye ointment RxNorm: 214913 Apply 1 Application Both eyes QHS every night at bedtime Instill ~1 cm ribbon into affected eye 09/28/19 24 Inactive acetaminophen 500 mg tablet RxNorm: 522777 (MAX APAP:4GM/24HR) Take 1 Tablet(s) Oral TID as needed for pain 09/24/19 24 Inactive carvedilol 25 mg tablet RxNorm: 508507 Take 1 Tablet(s) Oral QD 09/08/19 24 No Stop Date Active pregabalin 100 mg capsule RxNorm: 584549 Take 1 Capsule(s) Oral QAM every morning 09/07/19 24 024 Inactive ezetimibe 10 mg tablet RxNorm: 118508 Take 1 Tablet(s) Oral QD 07/13/19 24 025 Inactive bisacodyl 10 mg rectal suppository RxNorm: 344978 Insert 1 Suppository Rectal QD as needed 07/13/19 24 No Stop Date Active polyethylene glycol 3350 17 gram/dose oral powder RxNorm: 617470 Take 17 Gram(s) Oral BID as needed mix in 4-8ox water 07/13/19 24 025 Inactive ketoconazole 2 % shampoo RxNorm: 388364 Apply 1 Application Topical UD as directed 07/13/19 No Stop Date Active Ozempic 1 mg/dose (4 mg/3 mL) subcutaneous pen injector RxNorm: 8830204 Inject 1 Milligram(s) Subcutaneous QW once a week 07/13/19 24 No Stop Date Active Guaifenesin AC 10 mg-100 mg/5 mL oral liquid RxNorm: 120234 Take 10 Milliliter(s) Oral Q4H every four hours as needed 07/13/19 24 No Stop Date Active ammonium lactate 12 % topical cream RxNorm: 016843 Apply 1 Application Topical BID 07/13/19 24 025 Inactive hydrocortisone 2.5 % topical cream RxNorm: 514184 Apply 1 Application Topical BID as needed 07/13/19 24 No Stop Date Active rosuvastatin 20 mg sprinkle capsule RxNorm: 1503828 Take 1 Capsule(s) Oral QD 07/13/19 24 025 Inactive rosuvastatin 40 mg tablet RxNorm: 013548 Take 1 Tablet(s) Oral QPM every evening 07/13/19 24 024 Inactive aripiprazole 15 mg tablet RxNorm: 672680 Take 1/2 Tablet(s) Oral QD 07/13/19 24 024 Inactive isosorbide mononitrate ER 60 mg tablet,extended release 24 hr RxNorm: 800898 Take 1 Tablet(s) Oral QD 07/13/19 24 024 Inactive Vascepa 1 gram capsule RxNorm: 5629149 Take 2 Capsule(s) Oral BID 07/13/19 24 024 Inactive venlafaxine ER 75 mg capsule,extended release 24 hr RxNorm: 609379 Take 3 Capsule(s) Oral QD 07/13/19 24 024 Inactive Basaglar KwikPen U-100 Insulin 100 unit/mL (3 mL) subcutaneous RxNorm: 9465475 Inject 30U SubQ twice daily 07/07/19 24 024 Inactive Please dispense one month supply. Basaglar KwikPen U-100 Insulin 100 unit/mL (3 mL) subcutaneous RxNorm: 8394758 Inject 30U SubQ twice daily 07/07/19 24 024 Inactive Please dispense one month supply. pregabalin 150 mg capsule RxNorm: 271334 Take 1 Capsule(s) Oral QHS every night at bedtime 07/05/19 24 024 Inactive pregabalin 150 mg capsule RxNorm: 927092 Take 1 Capsule(s) Oral QHS every night at bedtime 07/05/19 24 024 Inactive polyethylene glycol 3350 17 gram/dose oral powder RxNorm: 235166 Take 1 Packet Oral QD as needed (1 packet = 17g) mix with 4-8oz of liquid 06/15/19 24 024 Inactive bisacodyl 10 mg rectal suppository RxNorm: 699006 Insert one suppository per rectum once daily as needed for constipation 06/15/19 24 024 Inactive bisacodyl 10 mg rectal suppository RxNorm: 357430 Insert one suppository per rectum once daily as needed for constipation 06/15/19 24 024 Inactive pregabalin 100 mg capsule RxNorm: 130123 Take 1 Capsule(s) Oral QAM every morning 04/27/20 23 024 Inactive Levemir FlexPen 100 unit/mL (3 mL) solution subcutaneous insulin pen RxNorm: 719738 Inject 30 Unit(s) Subcutaneous BID 04/27/20 23 024 Inactive rosuvastatin 40 mg tablet RxNorm: 805178 Take 1 Tablet(s) Oral QPM every evening 04/16/20 23 024 Inactive D/C rosuvastatin 20mg venlafaxine ER 75 mg capsule,extended release 24 hr RxNorm: 893391 Take 3 Capsule(s) Oral QD 04/14/20 023 Inactive pregabalin 100 mg capsule RxNorm: 707598 Take 1 Capsule(s) Oral QAM every morning [...] strip clotrimazole 1 % topical cream RxNorm: 641250 Take apply topically to abdominal folds twice daily for 14 days 03/12/20 024 Inactive Ozempic 1 mg/dose (4 mg/3 mL) subcutaneous pen injector RxNorm: 8235958 Inject 1 Milligram(s) Subcutaneous QW once a week 03/11/20 23 023 Inactive rosuvastatin 20 mg tablet RxNorm: 274773 Take 1 Tablet(s) Oral QD 02/26/20 023 Inactive d/c pravastatin 80mg Ozempic 1 mg/dose (4 mg/3 mL) subcutaneous pen injector RxNorm: 3716173 Inject 1 Milligram(s) Subcutaneous QW once a week 02/20/20 23 023 Inactive pregabalin 150 mg capsule RxNorm: 433298 Take 1 Capsule(s) Oral HS at bed time 02/19/20 23 023 Inactive pregabalin 100 mg capsule RxNorm: 113005 Take 1 Capsule(s) Oral QAM every morning 02/18/20 23 023 Inactive venlafaxine ER 75 mg capsule,extended release 24 hr RxNorm: 763526 Take 3 Capsule(s) Oral QD 02/04/20 23 023 Inactive FreeStyle Chema 2 Sensor kit RxNorm: use as directed 09/ 023 Inactive FreeStyle Chema 2 Sensor kit RxNorm: use as directed 02/04/20 23 024 Inactive fluconazole 150 mg tablet RxNorm: 828692 Take 1 Tablet(s) Oral on day 3 and on day 6 02/03/20 23 024 Inactive venlafaxine ER 150 mg capsule,extended release 24 hr RxNorm: 024086 Take 1 Capsule(s) Oral QD 02/03/20 023 Inactive chlorthalidone 25 mg tablet RxNorm: 988819 Take 1 Tablet(s) Oral QAM every morning 02/03/20 23 024 Inactive acetaminophen 500 mg tablet RxNorm: 603901 1 TABLET ORALLY 3 TIMES DAILY (MAX APAP:4GM/24HR) 12/15/19 23 023 Inactive clotrimazole 1 % topical cream RxNorm: 877434 apply 1g topically to top of feet and in between toes BID 12/09/19 23 025 Inactive potassium chloride ER 20 mEq tablet,extended release RxNorm: 560778 Take 1 Tablet(s) Oral BID 12/09/19 23 024 Inactive d/c 20mEq once daily (sent from hospital) nystatin 100,000 unit/gram topical powder RxNorm: 428447 APPLY TO AFFECTED AREAS TOPICALLY 2 TIMES DAILY 11/21/19 23 023 Inactive Nystop 100,000 unit/gram topical powder RxNorm: 349243 Apply to abd folds, under breasts and L side of groin Topical BID x 14 days, then BID PRN 11/20/19 23 023 Inactive dx: yeast dermatitis [place] Ultra Strength 4 %-30 %-10 % topical cream RxNorm: 752678 Apply 1 Gram(s) Topical QID PRN to feet and legs for neuropathic pain 11/11/19 23 024 Inactive clotrimazole 1 % topical cream RxNorm: 947531 Apply 1/2 Gram(s) Topical BID Apply to affected areas of groin, periarea, and abdominal topically 2 times daily 11/10/19 23 023 Inactive hydrocortisone 2.5 % topical cream RxNorm: 126968 Apply 1/2 Gram(s) Topical BID as needed 11/10/19 23 024 Inactive Levemir FlexPen 100 unit/mL (3 mL) solution subcutaneous insulin pen RxNorm: 568829 Inject 30 Unit(s) Subcutaneous BID 10/07/19 23 023 Inactive Humulin R U-500 (Concentrated) Insulin 500 unit/mL subcutaneous soln RxNorm: 569879 Inject 100 Unit(s) Subcutaneous TID 10/07/19 024 Inactive Ozempic 0.25 mg or 0.5 mg (2 mg/3 mL) subcutaneous pen injector RxNorm: 1517520 Inject 1/2 Milligram(s) Subcutaneous QW once a week 10/07/19 024 Inactive aripiprazole 15 mg tablet RxNorm: 566359 1/2 TAB (7.5MG) ORALLY DAILY (DX:MAJOR DEPRESSIVE DISORDER) 09/23/19 023 Inactive Accu-Chek Guide test strips RxNorm: Use 1 Test Strip QID 09/15/19 23 023 Inactive ok to substitute with any covered alternative test strip Lancets,Thin 28 gauge RxNorm: Use 1 as directed QID 09/15/19 23 023 Inactive torsemide 20 mg tablet RxNorm: 717369 Take 1 Tablet(s) Oral BID 09/09/19 024 Inactive d/c once daily dosing carvedilol 25 mg tablet RxNorm: 236572 Take 1 Tablet(s) Oral QD 08/25/19 024 Inactive pregabalin 150 mg capsule RxNorm: 692316 1 Capsule(s) Oral HS at bed time 08/18/19 023 Inactive pregabalin 100 mg capsule RxNorm: 363485 1 Capsule(s) Oral QAM every morning 08/18/19 023 Inactive carvedilol 25 mg tablet RxNorm: 875943 1 Tablet(s) Oral QD 07/28/19 23 023 Inactive lisinopril 20 mg tablet RxNorm: 326045 Give 1 Tablet(s) Oral QD 07/28/19 023 Inactive Lyrica 150 mg capsule RxNorm: 910707 Take 1 Capsule(s) Oral QHS every night at bedtime 07/19/19 23 023 Inactive d/c 100mg dose Diflucan 150 mg tablet RxNorm: 158787 Take 1 Tablet(s) Oral QD repeat on day 3 and 6 07/19/19 23 023 Inactive pregabalin 100 mg capsule RxNorm: 472379 Take 1 Capsule(s) Oral QAM every morning 07/19/19 23 023 Inactive gatifloxacin 0.5 % eye drops RxNorm: 639457 Instill 1 Drop(s) as directed TID Instill 1 drop in to affected eye(s) starting 1 day prior to surgery and continue until gone (do not exceed 4 weeks). 07/13/19 23 023 Inactive carvedilol 25 mg tablet RxNorm: 435722 2 Tablet(s) Oral BID 07/13/19 23 023 Inactive Humulin R Regular U-100 Insulin 100 unit/mL injection solution RxNorm: 556998 85 Unit(s) Injection TID 07/13/19 23 023 Inactive ketorolac 0.5 % eye drops RxNorm: 488165 Instill 1 Drop(s) as directed QID Instill 1 drop into affected eye(s) 4 times daily starting 1 day prior to surgery and continue until gone (do not exceed 4 weeks). 07/13/19 23 023 Inactive Diflucan 150 mg tablet RxNorm: 775236 Take 1 Tablet(s) Oral QD repeat on day 3 and 6 06/30/19 23 023 Inactive Accu-Chek Guide test strips RxNorm: Use 1 Test Strip QID Use 1 test strip to monitor blood glucose 4 times daily and as needed. Dx:E11.42. 06/23/19 23 023 Inactive ok to substitute with any covered alternative test strip dextromethorphan-gu aifenesin 10 mg-100 mg/5 mL oral liquid RxNorm: 477246 Take 10 Milliliter(s) Oral every 4 hours as needed for cough 06/19/19 23 023 Inactive dextromethorphan-gu aifenesin 10 mg-100 mg/5 mL oral liquid RxNorm: 536525 Take 10 Milliliter(s) Oral every 4 hours as needed for cough 06/19/19 023 Inactive Lyrica 150 mg capsule RxNorm: 861971 Take 1 Capsule(s) Oral QHS every night at bedtime 06/18/19 023 Inactive d/c 100mg dose aripiprazole 15 mg tablet RxNorm: 791820 /2 TAB (7.5MG) ORALLY DAILY (DX:MAJOR DEPRESSIVE DISORDER) 06/05/19 023 Inactive pregabalin 100 mg capsule RxNorm: 770521 1 Capsule(s) Oral QAM every morning 06/02/19 023 Inactive Banophen 50 mg capsule RxNorm: 2336250 Take 1 Capsule(s) Oral Q6H every 6 hours as needed 05/19/19 23 No Stop Date Active Novolog Flexpen U-100 Insulin aspart 100 unit/mL (3 mL) subcutaneous RxNorm: 5417575 Inject 10 Unit(s) Subcutaneous QHS every night at bedtime with nighttime snack 04/08/20 022 Inactive Novolog Flexpen U-100 Insulin aspart 100 unit/mL (3 mL) subcutaneous RxNorm: 7875580 Inject 42 Unit(s) Subcutaneous TID in addition to sliding scale 04/08/20 022 Inactive d/c 36u albuterol sulfate HFA 90 mcg/actuation aerosol inhaler RxNorm: 9675320 Take 2 Puff(s) Inhalation Q4H every four hours as needed as needed for SOB, cough, or wheezing 04/07/20 22 030 Active Banophen 50 mg capsule RxNorm: 6036882 Take 1 Capsule(s) Oral Q6H every 6 hours as needed 04/06/20 023 Inactive diphenhydramine 50 mg tablet RxNorm: 1833683 Take 1 Tablet(s) Oral Q6H every 6 hours as needed 04/06/20 22 022 Inactive diphenhydramine 50 mg tablet RxNorm: 8811676 1 Tablet(s) Oral Q6H every 6 hours as needed 04/06/20 22 022 Inactive Abilify 15 mg tablet RxNorm: 767318 1/2 Tablet(s) Oral QD 03/10/20 22 023 Inactive Shingrix (PF) 50 mcg/0.5 mL intramuscular suspension, kit RxNorm: 4647322 Administer 1/2 Milliliter(s) Intramuscular QD one time shingrix step 2 ( step 1 given 11/04/21) WITH needle - Nursing please administer upon arrival and once administered post a bridge message with 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, 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, expiration date, and lot# so we can update [facility] 02/18/20 22 022 Inactive dispense with needle Shingrix (PF) 50 mcg/0.5 mL intramuscular suspension, kit RxNorm: 7341416 Administer 1/2 Milliliter(s) Intramuscular QD one time shingrix step 2 ( step 1 given 11/04/21) WITH needle - Nursing please administer upon arrival and once administered post a bridge message with date of administration, 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, expiration date, and lot# so we can update [facility] 02/18/20 22 022 Inactive dispense with needle polyethylene glycol 3350 17 gram/dose oral powder RxNorm: 244068 Take 17=1 capful Gram(s) Oral QD mix with 4-8oz of liquid 01/08/20 22 025 Inactive take this in addition to BID prn order Lyrica 100 mg capsule RxNorm: 830959 Take 1 Capsule(s) Oral QAM every morning 01/08/20 22 022 Inactive d/c 50mg dose acetaminophen 500 mg tablet RxNorm: 683806 Take 1 Tablet(s) Oral TID 01/08/20 22 022 Inactive d/c PRN order Lyrica 150 mg capsule RxNorm: 148947 Take 1 Capsule(s) Oral QHS every night at bedtime 01/08/20 22 023 Inactive d/c 100mg dose Abilify 5 mg tablet RxNorm: 502070 Take 1 Tablet(s) Oral QD take 1 tab po QD #30 refill 5 dx: MDD 12/12/19 22 022 Inactive Abilify 5 mg tablet RxNorm: 230931 Take 1 Tablet(s) Oral QD take 1 tab po QD #30 refill 5 dx: MDD 12/12/19 22 022 Inactive Novolog Flexpen U-100 Insulin aspart 100 unit/mL (3 mL) subcutaneous RxNorm: 1126509 Inject 42 Unit(s) Subcutaneous TID in addition to sliding scale 12/10/19 22 022 Inactive d/c 36u chlorthalidone 25 mg tablet RxNorm: 355763 Take 1 Tablet(s) Oral QAM every morning 12/10/19 22 023 Inactive pregabalin 50 mg capsule RxNorm: 636791 Take 1 Capsule(s) Oral QAM every morning 11/12/19 22 022 Inactive tetanus-diphtheria toxoids-Td 2 Lf unit-2 Lf unit/0.5 mL IM suspension RxNorm: 139 Take 0.5 Miscellaneous Intramuscular 11/12/19 22 022 Inactive need tdap - nursing to administer upon arrival pregabalin 50 mg capsule RxNorm: 106437 Take 1 Capsule(s) Oral QAM every morning 10/16/19 22 022 Inactive pregabalin 50 mg capsule RxNorm: 432861 Take 1 Capsule(s) Oral QAM every morning 10/16/19 22 022 Inactive pregabalin 50 mg capsule RxNorm: 406591 1 Capsule(s) Oral QAM every morning 10/15/19 22 022 Inactive Shingrix (PF) 50 mcg/0.5 mL intramuscular suspension, kit RxNorm: 7004631 Administer 1/2 Milliliter(s) Intramuscular one time Nursing please administer upon arrival and once administered post a bridge message with date of administration, 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, expiration date, and lot# so we can update [facility]. 10/09/19 22 022 Inactive shingrix step 1 Shingrix (PF) 50 mcg/0.5 mL intramuscular suspension, kit RxNorm: 8050148 Administer 1/2 Milliliter(s) Intramuscular one time Nursing please administer upon arrival and once administered post a bridge message with date of administration, 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, expiration date, and lot# so we [...] aspart 100 unit/mL (3 mL) subcutaneous RxNorm: 0242292 Inject 10 Unit(s) Subcutaneous QHS every night at bedtime with nighttime snack 10/08/19 22 022 Inactive Shingrix (PF) 50 mcg/0.5 mL intramuscular suspension, kit RxNorm: 3411100 ADMINISTER 2-DOSE SERIES PER CDC GUIDELINES 10/08/19 22 022 Active Shingrix (PF) 50 mcg/0.5 mL intramuscular suspension, kit RxNorm: 1649286 ADMINISTER 2-DOSE SERIES PER CDC GUIDELINES 10/08/19 22 022 Inactive Novolog Flexpen U-100 Insulin aspart 100 unit/mL (3 mL) subcutaneous RxNorm: 5247873 Inject 36 Unit(s) Subcutaneous TID in addition to sliding scale 10/08/19 22 022 Inactive cholecalciferol (vitamin D3) 1,250 mcg (50,000 unit) capsule RxNorm: 300721 Take 1 Capsule(s) Oral QW once a week 10/08/19 22 024 Inactive Novofine Autocover 30 gauge x 1/3 needle RxNorm: Use 1 Miscellaneous UD as directed Use 1 needle as directed to administer insulin 5 times a day Dx:E11.42. 10/03/19 Inactive ok to substitute with any covered alternative pen needle benzoyl peroxide 10 % topical cleanser RxNorm: 705295 Apply 1 Application Topical QD apply to face, wash rinse and dry once daily (may change to QOD if drying) 08/19/19 22 022 Inactive (%covered by insurance) #60ml refill 11 dx: acne benzoyl peroxide 10 % topical cleanser RxNorm: 656920 Apply 1 Application Topical QD apply to face, wash rinse and dry once daily (may change to QOD if drying) 08/19/19 22 022 Inactive (%covered by insurance) #60ml refill 11 dx: acne benzoyl peroxide 10 % topical cleanser RxNorm: 145563 Apply 1 Application Topical QD apply to face, wash rinse and dry once daily (may change to QOD if drying) 08/19/19 22 022 Inactive (%covered by insurance) #60ml refill 11 dx: acne Lyrica 50 mg capsule RxNorm: 363975 Take 1 Capsule(s) Oral QAM every morning Take 1 capsule by mouth once daily 08/19/19 022 Inactive benzoyl peroxide 10 % topical cleanser RxNorm: 613693 Apply 1 Application Topical QD apply to face, wash rinse and dry once daily (may change to QOD if drying) 08/19/19 22 022 Inactive (%covered by insurance) #60ml refill 11 dx: acne Lyrica 100 mg capsule RxNorm: 076092 Take 1 Capsule(s) Oral QHS every night at bedtime Take 1 capsule by mouth once daily at bedtime 08/19/19 22 022 Inactive Lyrica 100 mg capsule RxNorm: 832658 Take 1 Capsule(s) Oral QHS every night at bedtime Take 1 capsule by mouth once daily at bedtime 08/16/19 22 022 Inactive Lyrica 50 mg capsule RxNorm: 850319 Take 1 Capsule(s) Oral QAM every morning Take 1 capsule by mouth once daily 08/16/19 22 Inactive Levemir FlexTouch U-100 Insulin 100 unit/mL (3 mL) subcutaneous pen RxNorm: 104952 Inject 86 Unit(s) Subcutaneous BID 08/05/19 22 022 Inactive d/c 83units BID Lyrica 100 mg capsule RxNorm: 774490 Take 1 Capsule(s) Oral QHS every night at bedtime Take 1 capsule by mouth once daily at bedtime 07/14/19 22 02/28/2 022 Inactive Lyrica 50 mg capsule RxNorm: 556760 Take 1 Capsule(s) Oral QAM every morning Take 1 capsule by mouth once daily 07/14/19 22 Inactive Levemir FlexTouch U-100 Insulin 100 unit/mL (3 mL) subcutaneous pen RxNorm: 211912 Inject 83 Unit(s) Subcutaneous BID 07/08/19 22 [...] test strip hydralazine 50 mg tablet RxNorm: 878918 Take 1 Tablet(s) Oral QID 12/20/ 022 Inactive venlafaxine ER 225 mg tablet,extended release 24 hr RxNorm: 602672 Take 1 Tablet(s) Oral QD 05/05/20 Inactive venlafaxine ER 225 mg tablet,extended release 24 hr RxNorm: 337325 Take 1 Tablet(s) Oral QD 05/05/20 022 Inactive isosorbide mononitrate ER 30 mg tablet,extended release 24 hr RxNorm: 190044 Take 1 Tablet(s) Oral QD 05/05/20 024 Inactive hydralazine 50 mg tablet RxNorm: 305460 Take 1 Tablet(s) Oral QID 05/05/20 Inactive aspirin 81 mg tablet,delayed release RxNorm: 959554 Take 1 Tablet(s) Oral QD 03/31/20 022 Inactive Vitamin D2 1,250 mcg (50,000 unit) capsule RxNorm: 0370876 Take 1 Capsule(s) Oral QW once a week x 12 weeks 03/31/20 022 Inactive Vitamin D2 1,250 mcg (50,000 unit) capsule RxNorm: 3497799 Take 1 Capsule(s) Oral QW once a week 03/31/20 021 Inactive Zetia 10 mg tablet RxNorm: 706114 Take 1 Tablet(s) Oral QD 03/31/20 024 Inactive Zetia 10 mg tablet RxNorm: 996011 Take 1 Tablet(s) Oral QD 03/31/20 021 Inactive hydralazine 25 mg tablet RxNorm: 443540 Take 1 Tablet(s) Oral QID 03/31/20 021 Inactive hydralazine 25 mg tablet RxNorm: 949884 Take 1 Tablet(s) Oral QID 03/31/20 021 Inactive hydralazine 10 mg tablet RxNorm: 046285 Take 1 Tablet(s) Oral QID 03/03/20 021 Inactive cephalexin 500 mg tablet RxNorm: 621042 Take 1 Tablet(s) Oral QID 02/27/20 021 Inactive cephalexin 500 mg tablet RxNorm: 078832 Take 1 Tablet(s) Oral QID 02/27/20 21 021 Inactive lisinopril 40 mg tablet RxNorm: 085559 Take 1 Tablet(s) Oral QD 02/11/20 21 023 Inactive Eliquis 5 mg tablet RxNorm: 5135710 Take 1 Tablet(s) Oral BID 01/05/20 21 025 Inactive Eliquis 5 mg tablet RxNorm: 3111218 Take 2 Tablet(s) Oral QD 01/01/20 21 021 Inactive Lyrica 50 mg capsule RxNorm: 274588 Take 1 Capsule(s) Oral QAM every morning 12/24/19 21 021 Inactive Lyrica 100 mg capsule RxNorm: 111968 Take 1 Capsule(s) Oral QHS every night at bedtime 12/24/19 021 Inactive clotrimazole 1 % topical cream RxNorm: 578828 Apply to right foot and toes Topical BID 12/04/19 21 023 Inactive metoprolol succinate ER 200 mg tablet,extended release 24 hr RxNorm: 434494 Take 1 Tablet(s) Oral QD 12/04/19 21 023 Inactive ciprofloxacin 500 mg tablet RxNorm: 674641 Take 1 Tablet(s) Oral QD 11/30/19 21 021 Inactive DX ofloxacin otic drops Accu-Chek Guide test strips RxNorm: USE 1 TO CHECK GLUCOSE 4 TIMES DAILY AND NEEDED 11/15/19 21 023 Inactive Blood Glucose Test strips RxNorm: Use 1 Test Strip QID at PRN 11/05/19 21 023 Inactive E11.42 lisinopril 30 mg tablet RxNorm: 585918 Take 1 Tablet(s) Oral QD 10/30/19 021 Inactive lisinopril 20 mg tablet RxNorm: 181857 Take 1 Tablet(s) Oral QD 10/23/19 21 021 Inactive lisinopril 20 mg tablet RxNorm: 596026 Take 1 Tablet(s) Oral QD 10/23/19 21 021 Inactive lisinopril 10 mg tablet RxNorm: 754821 Take 1 Tablet(s) Oral QD 10/02/19 21 021 Inactive icosapent ethyl 1 gram capsule RxNorm: 4572405 Take 2 Capsule(s) (2 gm) Oral BID with meals 09/12/19 21 024 Inactive Okay to dispense one 2gm tab if you have that available. icosapent ethyl 1 gram capsule RxNorm: 0372558 Take 2 Capsule(s) Oral BID 09/12/19 21 021 Inactive Okay to dispense one 2gm tab if you have that available. amlodipine 10 mg tablet RxNorm: 238163 Take 1 Tablet(s) Oral QD 09/04/19 21 021 Inactive aspirin 81 mg tablet,delayed release RxNorm: 017887 Take 1 Tablet(s) Oral QD 09/04/19 021 Inactive Levemir FlexTouch U-100 Insulin 100 unit/mL (3 mL) subcutaneous pen RxNorm: 267254 Inject 150 Unit(s) Subcutaneous BID 09/04/19 21 022 Inactive venlafaxine ER 150 mg tablet,extended release 24 hr RxNorm: 915278 Take 1 Tablet(s) Oral QD 09/04/19 021 Inactive clotrimazole-betame thasone 1 %-0.05 % topical cream RxNorm: 590530 Apply to rash on red area on left abdomen/chest Topical BID 08/10/19 21 021 Inactive amlodipine 5 mg tablet RxNorm: 911126 Take 1 Tablet(s) Oral QD 07/31/19 21 021 Inactive cephalexin 500 mg tablet RxNorm: 448558 Take 1 Tablet(s) Oral BID BID - Twice Daily 07/31/19 21 021 Inactive Start 08/01/20 pantoprazole 40 mg tablet,delayed release RxNorm: 712026 Take 1 Tablet(s) Oral QAM every morning 07/08/19 21 025 Inactive senna 8.6 mg tablet RxNorm: 745034 Take 1 Tablet(s) Oral QD 07/08/19 21 025 Inactive carbamazepine 200 mg tablet RxNorm: 282313 Take 1 Tablet(s) Oral BID 07/08/19 21 025 Inactive clopidogrel 75 mg tablet RxNorm: 682359 Take 1 Tablet(s) Oral QD 07/08/19 21 021 Inactive Blood Glucose Test strips RxNorm: Use 1 Test Strip QID at PRN 07/08/19 21 Inactive E11.42 Novolog Flexpen U-100 Insulin aspart 100 unit/mL (3 mL) subcutaneous RxNorm: 6054070 Administer per sliding scale Milliliter(s) Subcutaneous TID 151-200: 10 u; 201-250: 20 u; 251-300: 30 u; 301-350: 40 u; 351-400: 50 u. 07/08/19 022 Inactive lisinopril 5 mg tablet RxNorm: 230349 Take 1 Tablet(s) Oral QD 07/08/19 021 Inactive Novolog Flexpen U-100 Insulin aspart 100 unit/mL (3 mL) subcutaneous RxNorm: 2152422 Inject 85 Unit(s) Subcutaneous TID 07/08/19 022 Inactive pravastatin 80 mg tablet RxNorm: 652263 Take 1 Tablet(s) Oral QHS every night at bedtime 07/08/19 023 Inactive clotrimazole 1 % topical cream RxNorm: 859537 Apply to bilateral groin areas Topical BID 07/08/19 21 022 Inactive metoprolol succinate ER 200 mg tablet,extended release 24 hr RxNorm: 256428 Take 1 Tablet(s) Oral QD 07/08/19 21 021 Inactive Vitamin D3 25 mcg (1,000 unit) tablet RxNorm: 753910 Take 1 Tablet(s) Oral QD 07/08/19 21 021 Inactive isosorbide dinitrate 30 mg tablet RxNorm: 741028 Take 1 Tablet(s) Oral QD 07/08/19 21 021 Inactive Levemir FlexTouch U-100 Insulin 100 unit/mL (3 mL) subcutaneous pen RxNorm: 361272 Inject 140 Unit(s) Subcutaneous BID 07/08/19 21 021 Inactive torsemide 20 mg tablet RxNorm: 883695 Take 1 Tablet(s) Oral QD 07/08/19 21 023 Inactive venlafaxine 75 mg tablet RxNorm: 363671 Take 1 Tablet(s) Oral QD 07/08/19 21 021 Inactive acetaminophen 500 mg tablet RxNorm: 121522 Take 1 Tablet(s) Oral TID as needed for headache 06/18/19 21 021 Inactive acetaminophen 500 mg tablet RxNorm: 099568 Take 1 Tablet(s) Oral TID as needed for headache 06/18/19 021 Inactive Lyrica 100 mg capsule RxNorm: 392349 Take 1 Capsule(s) Oral QHS every night at bedtime 06/11/19 21 021 Inactive Lyrica 50 mg capsule RxNorm: 662490 Take 1 Capsule(s) Oral QAM every morning 06/10/19 21 021 Inactive hydrocortisone 2.5 % topical cream RxNorm: 903413 Apply to bilateral groin creases Topical BID 05/15/20 20 021 Inactive clotrimazole 1 % topical cream RxNorm: 075302 Apply to bilateral groin areas Topical BID 05/15/20 20 021 Inactive Lyrica 50 mg capsule RxNorm: 889261 Take 1 Capsule(s) Oral QAM every morning 05/14/20 20 020 Inactive Lyrica 100 mg capsule RxNorm: 497959 Take 1 Capsule(s) Oral QHS every night [...] Inactive Nystop 100,000 unit/gram topical powder RxNorm: 295248 Apply to abd folds, under breasts and L side of groin Topical BID x 14 days, then BID PRN 04/08/20 20 Inactive dx: yeast dermatitis Lyrica 100 mg capsule RxNorm: 305534 Take 1 Capsule(s) Oral QHS every night at bedtime 03/13/20 20 Inactive Lyrica 50 mg capsule RxNorm: 038749 Take 1 Capsule(s) Oral QAM every morning 03/13/20 20 Inactive ketoconazole 2 % shampoo RxNorm: 276177 Apply Topical two times a week with showers 03/11/20 20 Inactive cholecalciferol (vitamin D3) 50 mcg (2,000 unit) tablet RxNorm: 861682 Take 1 Tablet(s) Oral QD 03/11/20 20 021 Inactive Zetia 10 mg tablet RxNorm: 429388 Take 1 Tablet(s) Oral QD 03/07/20 20 021 Inactive Zetia 10 mg tablet RxNorm: 522143 Take 1 Tablet(s) Oral QD 03/07/20 20 Inactive Lyrica 50 mg capsule RxNorm: 837532 Take 1 Capsule(s) Oral QAM every morning 02/15/20 20 Inactive Lyrica 100 mg capsule RxNorm: 794235 Take 1 Capsule(s) Oral QHS every night at bedtime 02/15/20 20 Inactive Lyrica 100 mg capsule RxNorm: 878294 Take 1 Capsule(s) Oral QHS every night at bedtime 02/15/20 20 Inactive Lyrica 50 mg capsule RxNorm: 636757 Take 1 Capsule(s) Oral QAM every morning 02/15/20 20 Inactive metoprolol succinate ER 200 mg tablet,extended release 24 hr RxNorm: 122055 Take 1 Tablet(s) Oral QD 08/12/19 025 Inactive loperamide 2 mg capsule RxNorm: 671221 Take 1 Capsule(s) Oral QID as needed 09/06/19 025 Inactive hydralazine 50 mg tablet RxNorm: 987028 Take 1 Tablet(s) Oral QID 08/12/19 025 Inactive venlafaxine ER 75 mg capsule,extended release 24 hr RxNorm: 141170 Take 3 Capsule(s) Oral QD 06/12/19 023 Inactive polyethylene glycol 3350 17 gram/dose oral powder RxNorm: 131846 Take 17=1 capful Gram(s) Oral BID as needed mix with 4-8oz of liquid 06/12/19 024 Inactive icosapent ethyl 1 gram capsule RxNorm: 1213696 Take 2 Capsule(s) (2 gm) Oral BID with meals 10/07/19 023 Inactive Okay to dispense one 2gm tab if you have that available. Levemir FlexTouch U-100 Insulin 100 unit/mL (3 mL) subcutaneous pen RxNorm: 116363 Inject 80 Unit(s) Subcutaneous BID 07/14/19 023 Inactive Soft Touch Lancets RxNorm: miscellaneous 03/04/20 24 025 Inactive Novolog Flexpen U-100 Insulin aspart 100 unit/mL (3 mL) subcutaneous RxNorm: 1500018 Insert 30 Unit(s) Subcutaneous TID with meals [...] Planned Activity Notes Codes Status Date Referral: [facility] [address] [id number] [place]erral[place]ointment Xjugnkyex84/06/2025Referral: [facility]/Endocrinology WPtel: [address] [id number] [place]ReferralNo Records [id number]/24/2025Referral: [facility] WPtel: [address] , [address] [id number] [place]ReferralRecords Vdrrwerc75/08/2023Referral: [facility] WPtel: [address] [facility] [address] [facility] [address] [id number] NUKitpspxnCdveohmne94/12/2022Referral: General CardiologyReferralCompleted 1Referral: General PsychologistReferralClosedReferral: General PsychiatristReferralPatient/Family [...] Sister Jyotsna involved in his care cell# [phone] Guardian: Giulia (tapan met in person 09/01/21), [...] appointment 05.26.2024 with Jessa Webster MD at [facility]. Start Pioglitazone 15 mg QD. Stop Basaglar insulin. Increase Ozempic 2 mg once wkly. Continue Humalin R U-500 100 units with meals TID. FOLLOW UP 2 MONTHS. If BG >400 add 50 units to next scheduled dose of Humalin R U 500 insulin 06/12/2024
--- OUTSIDE RECORDS SUMMARY | 2024-10-19 18:40 | XMS_ITS | CCD ---
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 Unknown No [...] Single 10/07/2021 Living arrangements Unknown Custodial 09/03/[address]: 054622518 No Alcohol Consum ption 09/02/2020 Allergies, Adverse Reactions, Alerts Substance Reaction Codes Entered Date Inactivated Date Status * NO KNOWN FOOD ALLERGIES Iksfsjv1707/13/2023No Inactive DateActiveLISINOPRILRxNorm: 663630202/12/2020No Inactive DateActiveMetformin YEqJyyghmt21/28/2020No Inactive DateActive* NO KNOWN ENVIRONMENTAL GGUHZZUOWUhmjuuv55/27/2024No Inactive DateActive Problems Condition Codes Effective Dates Condition St atus Constipation by delayed colonic transit ICD-10: K59.01 ICD-9: 564.01045ActiveHypokalemiaICD-10: E87.6 ICD-9: 276.804/5ActiveLoose stoolsSNOMED CT: 966599353 ICD-10: R19.5 ICD-9: 787.7045ActiveStage 2 chronic 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ICD-10: E11. ICD-9: 250.40045ActiveType 2 diabetes mellitus with diabetic polyneuropathy, with long-term current use of insulinICD-10: E11.42 ICD-9: 250.60045ActiveBody mass index [BMI] 60.0-69.9, adultSNOMED CT: 387523560 ICD-10: Z68.44 ICD-9: V85.4405ActiveMixed incontinenceSNOMED CT: 33108615 ICD-10: N39.46 ICD-9: 788.33035ActiveDiabetic neuropathy associated with [...] planning - to document end of life [id number]Amputated toe of right footICD-10: S98.131A ICD-9: 895.009ctiveAnnual [...] E55.9 ICD-9: 268.909/ctiveCallus of heelICD-10: L84 ICD-9: 67967/esolvedGout due to renal impairmentICD-10: M10.30 ICD-9: 274.1005/esolvedHyperhidrosis of palmsICD-10: L74.512 ICD-9: 705.2105/esolvedHyperlipidemia, unspecifiedICD-10: E78.5 ICD-9: 272.405/esolvedOther manager long term care (current) drug therapyICD-10: Z79.899 ICD-9: V58.6905esolvedPain of [...] tagICD-10: L91.8 ICD-9: 701.904esolvedCoronary artery disease involving [place] coronary artery of [place] heart, angina presence unspecifiedICD-10: I25.10 ICD-9: 414.0102/4ActiveInappropriate sexual behaviorICD-10: Z72.89 ICD-9: 312.8910/3ActivePre-op evaluationICD-10: Z01.818 ICD-9: V72.8403/ctiveSecondary hypertensionICD-10: I15.9 ICD-9: 405.9903/ctiveDepressionICD-10: F32.9 ICD-9: 74331/esolvedDVT (deep venous thrombosis)ICD-10: I82.409 ICD-9: 453.4009/esolvedEncounter for [...] to other viral communicable diseasesICD-10: Z20.828 ICD-9: V01.79024548NxhralffHdxuwbvrTioxvna19/28/2020ActiveDiabetes mellitus Type 8Zaaoznf99/28/2020ActiveAnemia in chronic kidney diseaseICD-10: D63.1 02/12/2020ResolvedHyperlipidemia, unspecifiedICD-10: E78.509/28/2020Resolved Medications Medication Codes Instructions Start Date Stop Date Status Fill Instructions loperamide 2 mg tablet RxNorm: 359090 Take 2 Tablet(s) Oral UD as directed [...] Date Active senna 8.6 mg tablet RxNorm: 090396 Take 1 Tablet(s) Oral QD as needed and 1 tab BID prn 09/06/19 No Stop Date Active cyclobenzaprine 10 mg tablet RxNorm: 608926 Take 1 Tablet(s) Oral QHS every night at bedtime as needed 09/06/19 No Stop Date Active loperamide 2 mg tablet RxNorm: 508518 Take 2 Tablet(s) Oral UD as directed as needed 2 tabs after first loose stool then 1 tab after each subsequent stool PRN Do not exceed 4 doses in 24 hours. Do not administer until after 3 loose stools. 09/06/19 25 026 Active pioglitazone 15 mg tablet RxNorm: 828234 Take 1 Tablet(s) Oral QD 09/06/19 No Stop Date Active loperamide 2 mg tablet RxNorm: 347280 Take 2 Tablet(s) Oral UD as directed as needed 2 tabs after first loose stool then 1 tab after each subsequent stool PRN Do not exceed 4 doses in 24 hours. Do not administer until after 3 loose stools. 09/06/19 25 025 Inactive pregabalin 100 mg capsule RxNorm: 104547 1 CAPSULE BY MOUTH EVERY MORNING (DX: NEUROPATHY) 08/23/19 25 025 Active FACILITY IS REQUESTING REFILL. PRIOR RX HAS BEEN EXHAUSTED. THANK YOU. pregabalin 150 mg capsule RxNorm: 493862 1 CAPSULE BY MOUTH AT BEDTIME (DX: NEUROPATHY) 08/21/19 25 025 Active FACILITY IS REQUESTING A REFILL OF THIS MEDICATION, THANK YOU! senna 8.6 mg tablet RxNorm: 223522 Take 1 Tablet(s) Oral QD as needed for constipation on day 2 of no bowel movement 08/09/19 25 025 Inactive Miralax 17 gram/dose oral powder RxNorm: 581613 Administer 17 Gram(s) Oral QD as needed for constipation on day 3 of no bowel movement 08/09/19 25 025 Inactive senna 8.6 mg tablet RxNorm: 406663 Take 1 Tablet(s) Oral QD as needed for constipation on day 2 of no bowel movement 08/09/19 25 025 Inactive Miralax 17 gram/dose oral powder RxNorm: 679774 Administer 17 Gram(s) Oral QD as needed for constipation on day 3 of no bowel movement 08/09/19 025 Inactive pregabalin 100 mg capsule RxNorm: 151907 Take 1 Capsule(s) Oral QAM every morning [...] (Concentrated) Insulin 500 unit/mL subcutaneous soln RxNorm: 040472 Inject 100 Unit(s) Subcutaneous AC before meals Three times daily before meals. 07/24/19 25 025 Inactive ammonium lactate 12 % topical cream RxNorm: 951581 Apply 1 Application Topical BID 07/20/19 No Stop Date Active ezetimibe 10 mg tablet RxNorm: 590247 Take 1 Tablet(s) Oral QD 07/18/19 No Stop Date Active senna 8.6 mg tablet RxNorm: 737662 Take 1 Tablet(s) Oral QD 07/18/19 25 025 Inactive metoprolol succinate ER 200 mg tablet,extended release 24 hr RxNorm: 620117 Take 1 Tablet(s) Oral QD 06/19/19 25 No Stop Date Active pantoprazole 40 mg tablet,delayed release RxNorm: 412398 Take 1 Tablet(s) Oral QAM every morning 06/19/19 25 No Stop Date Active hydralazine 50 mg tablet RxNorm: 487386 Take 1 Tablet(s) Oral QID 06/19/19 25 No Stop Date Active carbamazepine 200 mg tablet RxNorm: 447494 Take 1 Tablet(s) Oral BID 06/19/19 25 No Stop Date Active amlodipine 10 mg tablet RxNorm: 400982 Take 1 Tablet(s) Oral QD 06/19/19 25 No Stop Date Active Eliquis 5 mg tablet RxNorm: 4036282 Take 1 Tablet(s) Oral BID 06/19/19 25 No Stop Date Active pen needle, diabetic 30 gauge x 3/16 RxNorm: Use 1 6 times per day w/insulin 06/14/19 25 026 Active pen needle, diabetic 30 gauge x 316 RxNorm: Use 1 needle 6 times per day w/insulin 06/14/19 25 025 Inactive nystatin 100,000 unit/gram topical powder RxNorm: 318700 Apply 1 Application Topical BID as needed abdominal/breast /groin folds 05/24/19 25 026 Active pregabalin 100 mg capsule RxNorm: 225656 Take 1 Capsule(s) Oral QAM every morning 05/22/19 25 025 Inactive nystatin 100,000 unit/gram topical powder RxNorm: 763606 Apply 1 Application Topical BID as needed abdominal/breast /groin folds 04/11/20 24 024 Inactive chlorthalidone 25 mg tablet RxNorm: 549860 Take 1 Tablet(s) Oral QAM every morning 04/06/20 24 No Stop Date Active pregabalin 150 mg capsule RxNorm: 929494 Take 1 Capsule(s) Oral QHS every night at bedtime 03/31/20 24 024 Inactive Vascepa 1 gram capsule RxNorm: 0193078 Take 2 Capsule(s) Oral BID 03/30/20 24 025 Active rosuvastatin 40 mg tablet RxNorm: 796876 1 TAB ORALLY EVERY EVENING (DX:CORONARY ARTERY DISEASE) 03/28/20 24 No Stop Date Active venlafaxine ER 75 mg capsule,extended release 24 hr RxNorm: 013655 3 CAPS (225MG) ORALLY DAILY (DX: MOOD DISORDER) 03/28/20 No Stop Date Active pregabalin 100 mg capsule RxNorm: 072930 Take 1 Capsule(s) Oral QAM every morning 03/20/20 Inactive cholecalciferol (vitamin D3) 1,250 mcg (50,000 unit) capsule RxNorm: 041969 Take 1 Capsule(s) Oral QW once a [...] Insulin 100 unit/mL (3 mL) subcutaneous RxNorm: 8584503 Inject 40 Unit(s) Subcutaneous BID 03/07/20 025 Inactive Please dispense one month supply. Humulin R U-500 (Concentrated) Insulin 500 unit/mL subcutaneous soln RxNorm: 627714 Inject 100 Unit(s) Subcutaneous AC before meals Three times daily before meals. 03/07/20 024 Inactive Accu-Chek Guide Glucose Meter RxNorm: Use 1 Miscellaneous UD as directed Use glucose meter to monitor blood glucose 4 times daily and as needed. Dx:E11.42 03/04/20 24 024 Inactive Accu-Chek Guide test strips RxNorm: Use 1 Test Strip QID And PRN-- also dispense Soft Touch Lancets (QID and PRN) to be use with new Accu [place] meter 03/04/20 24 Inactive ok to substitute with any covered alternative test strip FreeStyle Chema 2 Sensor kit RxNorm: Use UD as directed 03/02/20 24 Inactive Pen Needle 30 gauge x 516 RxNorm: Pen(s) Use 1 needle as directed TID 03/02/20 Inactive nystatin 100,000 unit/gram topical powder RxNorm: 955912 Apply 1 Application Topical BID as needed abdominal/breast /groin folds 03/02/20 Inactive FreeStyle Chema 2 Sensor kit RxNorm: Use UD as directed 03/02/20 025 Inactive Accu-Chek Guide test strips RxNorm: Use 1 Test Strip QID 03/02/20 24 Inactive ok to substitute with any covered alternative test strip Lancets,Thin 28 gauge RxNorm: Use 1 as directed QID lancet 03/02/20 24 024 Inactive Pen Needle 30 gauge x 516 RxNorm: Pen(s) Use 1 needle as directed TID 03/02/20 24 024 Inactive Humulin R U-500 (Concentrated) Insulin 500 unit/mL subcutaneous soln RxNorm: 804159 Inject 100 Unit(s) Subcutaneous TID 02/17/20 24 024 Inactive Humulin R U-500 (Concentrated) Insulin 500 unit/mL subcutaneous soln RxNorm: 231910 Inject 100 Unit(s) Subcutaneous TID 02/10/20 24 024 Inactive Basaglar KwikPen U-100 Insulin 100 unit/mL (3 mL) subcutaneous RxNorm: 4086015 Inject 30 Unit(s) Subcutaneous BID 02/10/20 24 024 Inactive Please dispense one month supply. pregabalin 100 mg capsule RxNorm: 060322 Take 1 Capsule(s) Oral QAM every morning 02/07/20 24 024 Inactive isosorbide mononitrate ER 60 mg tablet,extended release 24 hr RxNorm: 860806 Take 1 Tablet(s) Oral QD 02/01/20 24 025 Active aripiprazole 15 mg tablet RxNorm: 766127 Take 1/2 Tablet(s) Oral QD 02/01/20 24 025 Active torsemide 20 mg tablet RxNorm: 530283 1 TAB ORALLY DAILY (DX: EDEMA) 01/27/20 No Stop Date Active potassium chloride ER 20 mEq tablet,extended release(part/cryst) RxNorm: 0002368 2 TABS (40MEQ) ORALLY TWICE DAILY (DX: HYPOKALEMIA) 01/27/20 24 025 Inactive cephalexin 500 mg capsule RxNorm: 232206 Take 1 Capsule(s) Oral QID 12/17/19 24 024 Inactive cephalexin 500 mg capsule RxNorm: 903974 Take 1 Capsule(s) Oral QID 12/17/19 24 024 Inactive acetaminophen 500 mg tablet RxNorm: 921549 (MAX APAP:4GM/24HR) Take 1 Tablet(s) Oral TID as needed for pain 12/10/19 24 024 Inactive torsemide 20 mg tablet RxNorm: 147286 Take 1 Tablet(s) Oral QD 10/26/19 24 024 Inactive potassium chloride ER 20 mEq tablet,extended release RxNorm: 194608 Take 2 Tablet(s) Oral BID 10/26/19 24 024 Inactive torsemide 20 mg tablet RxNorm: 586403 Take 1 Tablet(s) Oral QD 10/26/19 24 025 Inactive potassium chloride ER 20 mEq tablet,extended release RxNorm: 105508 Take 2 Tablet(s) Oral BID 10/26/19 24 025 Inactive Artificial Tears (PF) 0.1 %-0.3 % drops in a dropperette RxNorm: 667139 Apply 1-2 Drop(s) Both eyes BID as needed 09/28/19 24 025 Inactive erythromycin 5 mg/gram (0.5 %) eye ointment RxNorm: 700635 Apply 1 Application Both eyes QHS every night at bedtime Instill ~1 cm ribbon into affected eye 09/28/19 Inactive Artificial Tears (PF) 0.1 %-0.3 % drops in a dropperette RxNorm: 255003 Apply 1-2 Drop(s) Both eyes BID as needed 09/28/19 24 Inactive erythromycin 5 mg/gram (0.5 %) eye ointment RxNorm: 767418 Apply 1 Application Both eyes QHS every night at bedtime Instill ~1 cm ribbon into affected eye 09/28/19 24 Inactive acetaminophen 500 mg tablet RxNorm: 171827 (MAX APAP:4GM/24HR) Take 1 Tablet(s) Oral TID as needed for pain 09/24/19 24 Inactive carvedilol 25 mg tablet RxNorm: 231374 Take 1 Tablet(s) Oral QD 09/08/19 24 No Stop Date Active pregabalin 100 mg capsule RxNorm: 665712 Take 1 Capsule(s) Oral QAM every morning 09/07/19 24 024 Inactive bisacodyl 10 mg rectal suppository RxNorm: 030289 Insert 1 Suppository Rectal QD as needed 07/13/19 24 No Stop Date Active ketoconazole 2 % shampoo RxNorm: 806793 Apply 1 Application Topical UD as directed 07/13/19 24 No Stop Date Active Ozempic 1 mg/dose (4 mg/3 mL) subcutaneous pen injector RxNorm: 2607583 Inject 1 Milligram(s) Subcutaneous QW once a week 07/13/19 24 No Stop Date Active Guaifenesin AC 10 mg-100 mg/5 mL oral liquid RxNorm: 324468 Take 10 Milliliter(s) Oral Q4H every four hours as needed 07/13/19 24 No Stop Date Active hydrocortisone 2.5 % topical cream RxNorm: 871861 Apply 1 Application Topical BID as needed 07/13/19 24 No Stop Date Active rosuvastatin 40 mg tablet RxNorm: 045544 Take 1 Tablet(s) Oral QPM every evening 07/13/19 24 024 Inactive ezetimibe 10 mg tablet RxNorm: 195206 Take 1 Tablet(s) Oral QD 07/13/19 24 025 Inactive polyethylene glycol 3350 17 gram/dose oral powder RxNorm: 758125 Take 17 Gram(s) Oral BID as needed mix in 4-8ox water 07/13/19 24 025 Inactive aripiprazole 15 mg tablet RxNorm: 822607 Take 1/2 Tablet(s) Oral QD 07/13/19 24 024 Inactive isosorbide mononitrate ER 60 mg tablet,extended release 24 hr RxNorm: 136845 Take 1 Tablet(s) Oral QD 07/13/19 24 024 Inactive ammonium lactate 12 % topical cream RxNorm: 598609 Apply 1 Application Topical BID 07/13/19 24 025 Inactive rosuvastatin 20 mg sprinkle capsule RxNorm: 2535746 Take 1 Capsule(s) Oral QD 07/13/19 24 025 Inactive Vascepa 1 gram capsule RxNorm: 7410709 Take 2 Capsule(s) Oral BID 07/13/19 24 024 Inactive venlafaxine ER 75 mg capsule,extended release 24 hr RxNorm: 440996 Take 3 Capsule(s) Oral QD 07/13/19 24 024 Inactive Basaglar KwikPen U-100 Insulin 100 unit/mL (3 mL) subcutaneous RxNorm: 0405848 Inject 30U SubQ twice daily 07/07/19 24 024 Inactive Please dispense one month supply. Basaglar KwikPen U-100 Insulin 100 unit/mL (3 mL) subcutaneous RxNorm: 6409153 Inject 30U SubQ twice daily 07/07/19 24 024 Inactive Please dispense one month supply. pregabalin 150 mg capsule RxNorm: 579377 Take 1 Capsule(s) Oral QHS every night at bedtime 07/05/19 24 024 Inactive pregabalin 150 mg capsule RxNorm: 184771 Take 1 Capsule(s) Oral QHS every night at bedtime 07/05/19 24 024 Inactive polyethylene glycol 3350 17 gram/dose oral powder RxNorm: 049461 Take 1 Packet Oral QD as needed (1 packet = 17g) mix with 4-8oz of liquid 01 024 Inactive bisacodyl 10 mg rectal suppository RxNorm: 809072 Insert one suppository per rectum once daily as needed for constipation 06/15/19 024 Inactive bisacodyl 10 mg rectal suppository RxNorm: 918754 Insert one suppository per rectum once daily as needed for constipation 06/15/19 024 Inactive pregabalin 100 mg capsule RxNorm: 082996 Take 1 Capsule(s) Oral QAM every morning 04/27/20 024 Inactive Levemir FlexPen 100 unit/mL (3 mL) solution subcutaneous insulin pen RxNorm: 940719 Inject 30 Unit(s) Subcutaneous BID 04/27/20 024 Inactive rosuvastatin 40 mg tablet RxNorm: 012369 Take 1 Tablet(s) Oral QPM every evening 04/16/20 024 Inactive D/C rosuvastatin 20mg venlafaxine ER 75 mg capsule,extended release 24 hr RxNorm: 884512 Take 3 Capsule(s) Oral QD 04/14/20 023 Inactive pregabalin 100 mg capsule RxNorm: 426316 Take 1 Capsule(s) Oral QAM every morning [...] strip clotrimazole 1 % topical cream RxNorm: 514034 Take apply topically to abdominal folds twice daily for 14 days 03/12/20 024 Inactive Ozempic 1 mg/dose (4 mg/3 mL) subcutaneous pen injector RxNorm: 6025231 Inject 1 Milligram(s) Subcutaneous QW once a week 03/11/20 23 023 Inactive rosuvastatin 20 mg tablet RxNorm: 645656 Take 1 Tablet(s) Oral QD 02/26/20 23 023 Inactive d/c pravastatin 80mg Ozempic 1 mg/dose (4 mg/3 mL) subcutaneous pen injector RxNorm: 7389362 Inject 1 Milligram(s) Subcutaneous QW once a week 02/20/20 23 023 Inactive pregabalin 150 mg capsule RxNorm: 996196 Take 1 Capsule(s) Oral HS at bed time 02/19/20 23 023 Inactive pregabalin 100 mg capsule RxNorm: 261127 Take 1 Capsule(s) Oral QAM every morning 02/18/20 23 023 Inactive venlafaxine ER 75 mg capsule,extended release 24 hr RxNorm: 629039 Take 3 Capsule(s) Oral QD 02/04/20 23 023 Inactive FreeStyle Chema 2 Sensor kit RxNorm: use as directed 02/04/20 23 023 Inactive FreeStyle Chema 2 Sensor kit RxNorm: use as directed 02/04/20 23 024 Inactive fluconazole 150 mg tablet RxNorm: 492524 Take 1 Tablet(s) Oral on day 3 and on day 6 02/03/20 23 024 Inactive venlafaxine ER 150 mg capsule,extended release 24 hr RxNorm: 762238 Take 1 Capsule(s) Oral QD 02/03/20 23 023 Inactive chlorthalidone 25 mg tablet RxNorm: 666054 Take 1 Tablet(s) Oral QAM every morning 02/03/20 23 024 Inactive acetaminophen 500 mg tablet RxNorm: 334081 1 TABLET ORALLY 3 TIMES DAILY (MAX APAP:4GM/24HR) 12/15/19 23 023 Inactive potassium chloride ER 20 mEq tablet,extended release RxNorm: 846604 Take 1 Tablet(s) Oral BID 12/09/19 23 024 Inactive d/c 20mEq once daily (sent from hospital) clotrimazole 1 % topical cream RxNorm: 209231 apply 1g topically to top of feet and in between toes BID 12/09/19 23 04/21/2 025 Inactive nystatin 100,000 unit/gram topical powder RxNorm: 344491 APPLY TO AFFECTED AREAS TOPICALLY 2 TIMES DAILY 11/21/19 23 023 Inactive Nystop 100,000 unit/gram topical powder RxNorm: 961494 Apply to abd folds, under breasts and L side of groin Topical BID x 14 days, then BID PRN 11/20/19 23 023 Inactive dx: yeast dermatitis [place] Ultra Strength 4 %-30 %-10 % topical cream RxNorm: 533813 Apply 1 Gram(s) Topical QID PRN to feet and legs for neuropathic pain 11/11/19 23 024 Inactive clotrimazole 1 % topical cream RxNorm: 632469 Apply 1/2 Gram(s) Topical BID Apply to affected areas of groin, periarea, and abdominal topically 2 times daily 11/10/19 23 023 Inactive hydrocortisone 2.5 % topical cream RxNorm: 449598 Apply 1/2 Gram(s) Topical BID as needed 11/10/19 23 024 Inactive Levemir FlexPen 100 unit/mL (3 mL) solution subcutaneous insulin pen RxNorm: 675227 Inject 30 Unit(s) Subcutaneous BID 10/07/19 23 023 Inactive Humulin R U-500 (Concentrated) Insulin 500 unit/mL subcutaneous soln RxNorm: 564456 Inject 100 Unit(s) Subcutaneous TID 10/07/19 23 024 Inactive Ozempic 0.25 mg or 0.5 mg (2 mg/3 mL) subcutaneous pen injector RxNorm: 2950813 Inject 1/2 Milligram(s) Subcutaneous QW once a week 10/07/19 23 024 Inactive aripiprazole 15 mg tablet RxNorm: 509976 1/2 TAB (7.5MG) ORALLY DAILY (DX:MAJOR DEPRESSIVE DISORDER) 09/23/19 23 023 Inactive Accu-Chek Guide test strips RxNorm: Use 1 Test Strip QID 09/15/19 23 023 Inactive ok to substitute with any covered alternative test strip Lancets,Thin 28 gauge RxNorm: Use 1 as directed QID 09/15/19 23 023 Inactive torsemide 20 mg tablet RxNorm: 707276 Take 1 Tablet(s) Oral BID 09/09/19 23 024 Inactive d/c once daily dosing carvedilol 25 mg tablet RxNorm: 539291 Take 1 Tablet(s) Oral QD 08/25/19 23 024 Inactive pregabalin 150 mg capsule RxNorm: 970557 1 Capsule(s) Oral HS at bed time 08/18/19 23 023 Inactive pregabalin 100 mg capsule RxNorm: 165966 1 Capsule(s) Oral QAM every morning 08/18/19 23 023 Inactive carvedilol 25 mg tablet RxNorm: 686574 1 Tablet(s) Oral QD 07/28/19 23 023 Inactive lisinopril 20 mg tablet RxNorm: 375197 Give 1 Tablet(s) Oral QD 07/28/19 23 023 Inactive Lyrica 150 mg capsule RxNorm: 482533 Take 1 Capsule(s) Oral QHS every night at bedtime 07/19/19 23 023 Inactive d/c 100mg dose Diflucan 150 mg tablet RxNorm: 874753 Take 1 Tablet(s) Oral QD repeat on day 3 and 6 07/19/19 23 023 Inactive pregabalin 100 mg capsule RxNorm: 553985 Take 1 Capsule(s) Oral QAM every morning 07/19/19 23 023 Inactive gatifloxacin 0.5 % eye drops RxNorm: 317968 Instill 1 Drop(s) as directed TID Instill 1 drop in to affected eye(s) starting 1 day prior to surgery and continue until gone (do not exceed 4 weeks). 07/13/19 23 023 Inactive carvedilol 25 mg tablet RxNorm: 737178 2 Tablet(s) Oral BID 07/13/19 23 023 Inactive Humulin R Regular U-100 Insulin 100 unit/mL injection solution RxNorm: 394224 85 Unit(s) Injection TID 07/13/19 23 023 Inactive ketorolac 0.5 % eye drops RxNorm: 792062 Instill 1 Drop(s) as directed QID Instill 1 drop into affected eye(s) 4 times daily starting 1 day prior to surgery and continue until gone (do not exceed 4 weeks). 07/13/19 23 023 Inactive Diflucan 150 mg tablet RxNorm: 933097 Take 1 Tablet(s) Oral QD repeat on day 3 and 6 06/30/19 23 023 Inactive Accu-Chek Guide test strips RxNorm: Use 1 Test Strip QID Use 1 test strip to monitor blood glucose 4 times daily and as needed. Dx:E11.42. 06/23/19 23 023 Inactive ok to substitute with any covered alternative test strip dextromethorphan-gu aifenesin 10 mg-100 mg/5 mL oral liquid RxNorm: 026481 Take 10 Milliliter(s) Oral every 4 hours as needed for cough 06/19/19 23 023 Inactive dextromethorphan-gu aifenesin 10 mg-100 mg/5 mL oral liquid RxNorm: 558667 Take 10 Milliliter(s) Oral every 4 hours as needed for cough 06/19/19 23 023 Inactive Lyrica 150 mg capsule RxNorm: 400844 Take 1 Capsule(s) Oral QHS every night at bedtime 06/18/19 23 023 Inactive d/c 100mg dose aripiprazole 15 mg tablet RxNorm: 178121 1/2 TAB (7.5MG) ORALLY DAILY (DX:MAJOR DEPRESSIVE DISORDER) 06/05/19 23 023 Inactive pregabalin 100 mg capsule RxNorm: 677736 1 Capsule(s) Oral QAM every morning 06/02/19 23 023 Inactive Banophen 50 mg capsule RxNorm: 6201649 Take 1 Capsule(s) Oral Q6H every 6 hours as needed 05/19/19 23 No Stop Date Active Novolog Flexpen U-100 Insulin aspart 100 unit/mL (3 mL) subcutaneous RxNorm: 0746909 Inject 10 Unit(s) Subcutaneous QHS every night at bedtime with nighttime snack 04/08/20 22 022 Inactive Novolog Flexpen U-100 Insulin aspart 100 unit/mL (3 mL) subcutaneous RxNorm: 5260198 Inject 42 Unit(s) Subcutaneous TID in addition to sliding scale 04/08/20 022 Inactive d/c 36u albuterol sulfate HFA 90 mcg/actuation aerosol inhaler RxNorm: 3916589 Take 2 Puff(s) Inhalation Q4H every four hours as needed as needed for SOB, cough, or wheezing 04/07/20 030 Active Banophen 50 mg capsule RxNorm: 0837563 Take 1 Capsule(s) Oral Q6H every 6 hours as needed 04/06/20 023 Inactive diphenhydramine 50 mg tablet RxNorm: 4281928 Take 1 Tablet(s) Oral Q6H every 6 hours as needed 04/06/20 022 Inactive diphenhydramine 50 mg tablet RxNorm: 4154359 1 Tablet(s) Oral Q6H every 6 hours as needed 04/06/20 022 Inactive Abilify 15 mg tablet RxNorm: 497495 1/2 Tablet(s) Oral QD 03/10/20 023 Inactive Shingrix (PF) 50 mcg/0.5 mL intramuscular suspension, kit RxNorm: 1639151 Administer 1/2 Milliliter(s) Intramuscular QD one time shingrix step 2 ( step 1 given 11/04/21) WITH needle - Nursing please administer upon arrival and once administered post a bridge message with date of administration, transition teacher, expiration date, and lot# so we can update [facility] 02/18/20 22 022 Inactive dispense with needle Shingrix (PF) 50 mcg/0.5 mL intramuscular suspension, kit RxNorm: 2533294 Administer 1/2 Milliliter(s) Intramuscular QD one time shingrix step 2 ( step 1 given 11/04/21) WITH needle - Nursing please administer upon arrival and once administered post a bridge message with date of administration, transition teacher, expiration date, and lot# so we can update [facility] 02/18/20 22 022 Inactive dispense with needle Lyrica 100 mg capsule RxNorm: 360017 Take 1 Capsule(s) Oral QAM every morning 01/08/20 22 022 Inactive d/c 50mg dose acetaminophen 500 mg tablet RxNorm: 141273 Take 1 Tablet(s) Oral TID 01/08/20 22 022 Inactive d/c PRN order Lyrica 150 mg capsule RxNorm: 863469 Take 1 Capsule(s) Oral QHS every night at bedtime 01/08/20 22 023 Inactive d/c 100mg dose polyethylene glycol 3350 17 gram/dose oral powder RxNorm: 153545 Take 17=1 capful Gram(s) Oral QD mix with 4-8oz of liquid 01/08/20 22 025 Inactive take this in addition to BID prn order Abilify 5 mg tablet RxNorm: 201226 Take 1 Tablet(s) Oral QD take 1 tab po QD #30 refill 5 dx: MDD 12/12/19 22 022 Inactive Abilify 5 mg tablet RxNorm: 955173 Take 1 Tablet(s) Oral QD take 1 tab po QD #30 refill 5 dx: MDD 12/12/19 22 022 Inactive Novolog Flexpen U-100 Insulin aspart 100 unit/mL (3 mL) subcutaneous RxNorm: 5285079 Inject 42 Unit(s) Subcutaneous TID in addition to sliding scale 12/10/19 22 022 Inactive d/c 36u chlorthalidone 25 mg tablet RxNorm: 604556 Take 1 Tablet(s) Oral QAM every morning 12/10/19 22 023 Inactive pregabalin 50 mg capsule RxNorm: 170795 Take 1 Capsule(s) Oral QAM every morning 11/12/19 22 022 Inactive tetanus-diphtheria toxoids-Td 2 Lf unit-2 Lf unit/0.5 mL IM suspension RxNorm: 139 Take 0.5 Miscellaneous Intramuscular 11/12/19 22 022 Inactive need tdap - nursing to administer upon arrival pregabalin 50 mg capsule RxNorm: 532624 Take 1 Capsule(s) Oral QAM every morning 10/16/19 22 022 Inactive pregabalin 50 mg capsule RxNorm: 775519 Take 1 Capsule(s) Oral QAM every morning 10/16/19 22 022 Inactive pregabalin 50 mg capsule RxNorm: 232507 1 Capsule(s) Oral QAM every morning 10/15/19 22 Inactive Shingrix (PF) 50 mcg/0.5 mL intramuscular suspension, kit RxNorm: 5868764 Administer 1/2 Milliliter(s) Intramuscular one time Nursing please administer upon arrival and once administered post a bridge message with date of administration, transition teacher, expiration date, and lot# so we can update [facility]. 10/09/19 22 022 Inactive shingrix step 1 Shingrix (PF) 50 mcg/0.5 mL intramuscular suspension, kit RxNorm: 6919151 Administer 1/2 Milliliter(s) Intramuscular one time Nursing please administer upon arrival and once administered post a bridge message with date of administration, transition teacher, expiration date, and lot# so we [...] aspart 100 unit/mL (3 mL) subcutaneous RxNorm: 4909844 Inject 10 Unit(s) Subcutaneous QHS every night at bedtime with nighttime snack 10/08/19 22 022 Inactive Shingrix (PF) 50 mcg/0.5 mL intramuscular suspension, kit RxNorm: 2242393 ADMINISTER 2-DOSE SERIES PER CDC GUIDELINES 10/08/19 22 022 Active Shingrix (PF) 50 mcg/0.5 mL intramuscular suspension, kit RxNorm: 8662708 ADMINISTER 2-DOSE SERIES PER CDC GUIDELINES 10/08/19 22 022 Inactive Novolog Flexpen U-100 Insulin aspart 100 unit/mL (3 mL) subcutaneous RxNorm: 0657818 Inject 36 Unit(s) Subcutaneous TID in addition to sliding scale 10/08/19 Inactive cholecalciferol (vitamin D3) 1,250 mcg (50,000 unit) capsule RxNorm: 863488 Take 1 Capsule(s) Oral QW once a week 10/08/19 Inactive Novofine Autocover 30 gauge x 1/3 needle RxNorm: Use 1 Miscellaneous UD as directed Use 1 needle as directed to administer insulin 5 times a day Dx:E11.42. 10/03/19 22 022 Inactive ok to substitute with any covered alternative pen needle benzoyl peroxide 10 % topical cleanser RxNorm: 497199 Apply 1 Application Topical QD apply to face, wash rinse and dry once daily (may change to QOD if drying) 08/19/19 22 022 Inactive (%covered by insurance) #60ml refill 11 dx: acne benzoyl peroxide 10 % topical cleanser RxNorm: 606375 Apply 1 Application Topical QD apply to face, wash rinse and dry once daily (may change to QOD if drying) 08/19/19 022 Inactive (%covered by insurance) #60ml refill 11 dx: acne benzoyl peroxide 10 % topical cleanser RxNorm: 247513 Apply 1 Application Topical QD apply to face, wash rinse and dry once daily (may change to QOD if drying) 08/19/19 022 Inactive (%covered by insurance) #60ml refill 11 dx: acne Lyrica 50 mg capsule RxNorm: 077588 Take 1 Capsule(s) Oral QAM every morning Take 1 capsule by mouth once daily 08/19/19 22 022 Inactive benzoyl peroxide 10 % topical cleanser RxNorm: 841690 Apply 1 Application Topical QD apply to face, wash rinse and dry once daily (may change to QOD if drying) 08/19/19 22 022 Inactive (%covered by insurance) #60ml refill 11 dx: acne Lyrica 100 mg capsule RxNorm: 421580 Take 1 Capsule(s) Oral QHS every night at bedtime Take 1 capsule by mouth once daily at bedtime 08/19/19 22 022 Inactive Lyrica 100 mg capsule RxNorm: 034686 Take 1 Capsule(s) Oral QHS every night at bedtime Take 1 capsule by mouth once daily at bedtime 08/16/19 22 022 Inactive Lyrica 50 mg capsule RxNorm: 142206 Take 1 Capsule(s) Oral QAM every morning Take 1 capsule by mouth once daily 08/16/19 22 022 Inactive Levemir FlexTouch U-100 Insulin 100 unit/mL (3 mL) subcutaneous pen RxNorm: 697160 Inject 86 Unit(s) Subcutaneous BID 08/05/19 22 022 Inactive d/c 83units BID Lyrica 100 mg capsule RxNorm: 637275 Take 1 Capsule(s) Oral QHS every night at bedtime Take 1 capsule by mouth once daily at bedtime 07/14/19 22 022 Inactive Lyrica 50 mg capsule RxNorm: 563343 Take 1 Capsule(s) Oral QAM every morning Take 1 capsule by mouth once daily 07/14/19 22 022 Inactive Levemir FlexTouch U-100 Insulin 100 unit/mL (3 mL) subcutaneous pen RxNorm: 744039 Inject 83 Unit(s) Subcutaneous BID 07/08/19 22 [...] test strip hydralazine 50 mg tablet RxNorm: 540009 Take 1 Tablet(s) Oral QID 05/05/20 21 022 Inactive venlafaxine ER 225 mg tablet,extended release 24 hr RxNorm: 998604 Take 1 Tablet(s) Oral QD 05/05/20 21 021 Inactive venlafaxine ER 225 mg tablet,extended release 24 hr RxNorm: 246147 Take 1 Tablet(s) Oral QD 05/05/20 21 022 Inactive isosorbide mononitrate ER 30 mg tablet,extended release 24 hr RxNorm: 007980 Take 1 Tablet(s) Oral QD 05/05/20 21 024 Inactive hydralazine 50 mg tablet RxNorm: 185180 Take 1 Tablet(s) Oral QID 05/05/20 21 021 Inactive aspirin 81 mg tablet,delayed release RxNorm: 792053 Take 1 Tablet(s) Oral QD 03/31/20 21 022 Inactive Vitamin D2 1,250 mcg (50,000 unit) capsule RxNorm: 3882828 Take 1 Capsule(s) Oral QW once a week x 12 weeks 03/31/20 022 Inactive Vitamin D2 1,250 mcg (50,000 unit) capsule RxNorm: 6838848 Take 1 Capsule(s) Oral QW once a week 03/31/20 021 Inactive Zetia 10 mg tablet RxNorm: 914220 Take 1 Tablet(s) Oral QD 03/31/20 024 Inactive Zetia 10 mg tablet RxNorm: 171616 Take 1 Tablet(s) Oral QD 03/31/20 021 Inactive hydralazine 25 mg tablet RxNorm: 968266 Take 1 Tablet(s) Oral QID 03/31/20 021 Inactive hydralazine 25 mg tablet RxNorm: 520007 Take 1 Tablet(s) Oral QID 03/31/20 021 Inactive hydralazine 10 mg tablet RxNorm: 422819 Take 1 Tablet(s) Oral QID 03/03/20 021 Inactive cephalexin 500 mg tablet RxNorm: 989124 Take 1 Tablet(s) Oral QID 02/27/20 021 Inactive cephalexin 500 mg tablet RxNorm: 487334 Take 1 Tablet(s) Oral QID 02/27/20 021 Inactive lisinopril 40 mg tablet RxNorm: 902491 Take 1 Tablet(s) Oral QD 02/11/20 023 Inactive Eliquis 5 mg tablet RxNorm: 9376030 Take 1 Tablet(s) Oral BID 01/05/20 21 025 Inactive Eliquis 5 mg tablet RxNorm: 0858145 Take 2 Tablet(s) Oral QD 01/01/20 21 021 Inactive Lyrica 50 mg capsule RxNorm: 781384 Take 1 Capsule(s) Oral QAM every morning 12/24/19 21 021 Inactive Lyrica 100 mg capsule RxNorm: 738632 Take 1 Capsule(s) Oral QHS every night at bedtime 12/24/19 21 021 Inactive clotrimazole 1 % topical cream RxNorm: 316349 Apply to right foot and toes Topical BID 12/04/19 21 023 Inactive metoprolol succinate ER 200 mg tablet,extended release 24 hr RxNorm: 375609 Take 1 Tablet(s) Oral QD 12/04/19 21 023 Inactive ciprofloxacin 500 mg tablet RxNorm: 697346 Take 1 Tablet(s) Oral QD 11/30/19 21 021 Inactive DX ofloxacin otic drops Accu-Chek Guide test strips RxNorm: USE 1 TO CHECK GLUCOSE 4 TIMES DAILY AND NEEDED 11/15/19 21 023 Inactive Blood Glucose Test strips RxNorm: Use 1 Test Strip QID at PRN 11/05/19 21 023 Inactive E11.42 lisinopril 30 mg tablet RxNorm: 073347 Take 1 Tablet(s) Oral QD 10/30/19 021 Inactive lisinopril 20 mg tablet RxNorm: 370199 Take 1 Tablet(s) Oral QD 10/23/19 021 Inactive lisinopril 20 mg tablet RxNorm: 655754 Take 1 Tablet(s) Oral QD 10/23/19 021 Inactive lisinopril 10 mg tablet RxNorm: 683252 Take 1 Tablet(s) Oral QD 10/02/19 021 Inactive icosapent ethyl 1 gram capsule RxNorm: 9438358 Take 2 Capsule(s) (2 gm) Oral BID with meals 09/12/19 024 Inactive Okay to dispense one 2gm tab if you have that available. icosapent ethyl 1 gram capsule RxNorm: 9595191 Take 2 Capsule(s) Oral BID 09/12/19 021 Inactive Okay to dispense one 2gm tab if you have that available. amlodipine 10 mg tablet RxNorm: 124914 Take 1 Tablet(s) Oral QD 09/04/19 21 021 Inactive aspirin 81 mg tablet,delayed release RxNorm: 267712 Take 1 Tablet(s) Oral QD 09/04/19 21 021 Inactive Levemir FlexTouch U-100 Insulin 100 unit/mL (3 mL) subcutaneous pen RxNorm: 820188 Inject 150 Unit(s) Subcutaneous BID 09/04/19 21 022 Inactive venlafaxine ER 150 mg tablet,extended release 24 hr RxNorm: 121549 Take 1 Tablet(s) Oral QD 09/04/19 021 Inactive clotrimazole-betame thasone 1 %-0.05 % topical cream RxNorm: 864316 Apply to rash on red area on left abdomen/chest Topical BID 08/10/19 21 021 Inactive amlodipine 5 mg tablet RxNorm: 948716 Take 1 Tablet(s) Oral QD 07/31/19 Inactive cephalexin 500 mg tablet RxNorm: 136630 Take 1 Tablet(s) Oral BID BID - Twice Daily 07/31/19 021 Inactive Start 08/01/20 pantoprazole 40 mg tablet,delayed release RxNorm: 330345 Take 1 Tablet(s) Oral QAM every morning 07/08/19 025 Inactive clopidogrel 75 mg tablet RxNorm: 034563 Take 1 Tablet(s) Oral QD 07/08/19 021 Inactive Blood Glucose Test strips RxNorm: Use 1 Test Strip QID at PRN 07/08/19 021 Inactive E11.42 senna 8.6 mg tablet RxNorm: 674516 Take 1 Tablet(s) Oral QD 07/08/19 025 Inactive Novolog Flexpen U-100 Insulin aspart 100 unit/mL (3 mL) subcutaneous RxNorm: 8868556 Administer per sliding scale Milliliter(s) Subcutaneous TID 151-200: 10 u; 201-250: 20 u; 251-300: 30 u; 301-350: 40 u; 351-400: 50 u. 07/08/19 022 Inactive lisinopril 5 mg tablet RxNorm: 518744 Take 1 Tablet(s) Oral QD 07/08/19 021 Inactive Novolog Flexpen U-100 Insulin aspart 100 unit/mL (3 mL) subcutaneous RxNorm: 7034603 Inject 85 Unit(s) Subcutaneous TID 07/08/19 21 022 Inactive pravastatin 80 mg tablet RxNorm: 117255 Take 1 Tablet(s) Oral QHS every night at bedtime 07/08/19 023 Inactive clotrimazole 1 % topical cream RxNorm: 746561 Apply to bilateral groin areas Topical BID 07/08/19 21 022 Inactive metoprolol succinate ER 200 mg tablet,extended release 24 hr RxNorm: 216525 Take 1 Tablet(s) Oral QD 07/08/19 021 Inactive Vitamin D3 25 mcg (1,000 unit) tablet RxNorm: 451781 Take 1 Tablet(s) Oral QD 07/08/19 021 Inactive isosorbide dinitrate 30 mg tablet RxNorm: 363069 Take 1 Tablet(s) Oral QD 07/08/19 021 Inactive carbamazepine 200 mg tablet RxNorm: 822658 Take 1 Tablet(s) Oral BID 07/08/19 025 Inactive Levemir FlexTouch U-100 Insulin 100 unit/mL (3 mL) subcutaneous pen RxNorm: 277200 Inject 140 Unit(s) Subcutaneous BID 07/08/19 021 Inactive torsemide 20 mg tablet RxNorm: 506595 Take 1 Tablet(s) Oral QD 07/08/19 023 Inactive venlafaxine 75 mg tablet RxNorm: 138511 Take 1 Tablet(s) Oral QD 07/08/19 021 Inactive acetaminophen 500 mg tablet RxNorm: 080996 Take 1 Tablet(s) Oral TID as needed for headache 06/18/19 021 Inactive acetaminophen 500 mg tablet RxNorm: 904472 Take 1 Tablet(s) Oral TID as needed for headache 06/18/19 021 Inactive Lyrica 100 mg capsule RxNorm: 309891 Take 1 Capsule(s) Oral QHS every night at bedtime 06/11/19 21 021 Inactive Lyrica 50 mg capsule RxNorm: 112320 Take 1 Capsule(s) Oral QAM every morning 06/10/19 21 021 Inactive hydrocortisone 2.5 % topical cream RxNorm: 230083 Apply to bilateral groin creases Topical BID 05/15/20 20 021 Inactive clotrimazole 1 % topical cream RxNorm: 662564 Apply to bilateral groin areas Topical BID 05/15/20 20 021 Inactive Lyrica 50 mg capsule RxNorm: 311186 Take 1 Capsule(s) Oral QAM every morning 05/14/20 20 Inactive Lyrica 100 mg capsule RxNorm: 595703 Take 1 Capsule(s) Oral QHS every night [...] Inactive Nystop 100,000 unit/gram topical powder RxNorm: 596087 Apply to abd folds, under breasts and L side of groin Topical BID x 14 days, then BID PRN 04/08/20 20 Inactive dx: yeast dermatitis Lyrica 100 mg capsule RxNorm: 484826 Take 1 Capsule(s) Oral QHS every night at bedtime 03/13/20 20 Inactive Lyrica 50 mg capsule RxNorm: 029563 Take 1 Capsule(s) Oral QAM every morning 03/13/20 20 Inactive ketoconazole 2 % shampoo RxNorm: 085920 Apply Topical two times a week with showers 03/11/20 20 024 Inactive cholecalciferol (vitamin D3) 50 mcg (2,000 unit) tablet RxNorm: 434385 Take 1 Tablet(s) Oral QD 03/11/20 20 021 Inactive Zetia 10 mg tablet RxNorm: 401304 Take 1 Tablet(s) Oral QD 03/07/20 20 021 Inactive Zetia 10 mg tablet RxNorm: 813307 Take 1 Tablet(s) Oral QD 03/07/20 20 020 Inactive Lyrica 50 mg capsule RxNorm: 835661 Take 1 Capsule(s) Oral QAM every morning 02/15/20 20 020 Inactive Lyrica 100 mg capsule RxNorm: 164417 Take 1 Capsule(s) Oral QHS every night at bedtime 02/15/20 20 020 Inactive Lyrica 100 mg capsule RxNorm: 878627 Take 1 Capsule(s) Oral QHS every night at bedtime 02/15/20 20 Inactive Lyrica 50 mg capsule RxNorm: 465917 Take 1 Capsule(s) Oral QAM every morning 02/15/20 20 Inactive venlafaxine ER 75 mg capsule,extended release 24 hr RxNorm: 144341 Take 3 Capsule(s) Oral QD 06/12/19 023 Inactive polyethylene glycol 3350 17 gram/dose oral powder RxNorm: 908380 Take 17=1 capful Gram(s) Oral BID as needed mix with 4-8oz of liquid 06/12/19 22 024 Inactive icosapent ethyl 1 gram capsule RxNorm: 7566790 Take 2 Capsule(s) (2 gm) Oral BID with meals 10/07/19 23 023 Inactive Okay to dispense one 2gm tab if you have that available. Levemir FlexTouch U-100 Insulin 100 unit/mL (3 mL) subcutaneous pen RxNorm: 267891 Inject 80 Unit(s) Subcutaneous BID 07/14/19 23 023 Inactive metoprolol succinate ER 200 mg tablet,extended release 24 hr RxNorm: 072761 Take 1 Tablet(s) Oral QD 08/12/19 025 Inactive loperamide 2 mg capsule RxNorm: 970452 Take 1 Capsule(s) Oral QID as needed 09/06/19 025 Inactive hydralazine 50 mg tablet RxNorm: 459613 Take 1 Tablet(s) Oral QID 08/12/19 23 025 Inactive Soft Touch Lancets RxNorm: miscellaneous 03/04/20 24 025 Inactive Novolog Flexpen U-100 Insulin aspart 100 unit/mL (3 mL) subcutaneous RxNorm: 0794470 Insert 30 Unit(s) Subcutaneous TID with meals [...] Notes Codes Status Date Referral: [facility] [address] [id number] [place]erral[place]oint[place] [id number]/06/2025Referral: [facility]/Endocrinology WPtel: [address] [id number] [place]ReferralNo Records [id number]/24/2025Referral: [facility] W[address]el: [address] [id number] [place]ReferralRecords [id number]/08/2023Referral: [facility] WPtel: [address] [id number]/12/2022Referral: General CardiologyReferralCompleted 1Referral: General PsychologistReferralClosedReferral: General PsychiatristReferralPatient/Family [...] Sister Jyotsna involved in his care cell# [phone] Guardian: Don (tapan met in person 09/01/21), [...] 05.26.2024 with Jessa Webster MD at [facility]. Start Pioglitazone 15 mg QD. Stop Basaglar insulin. Increase Ozempic 2 mg once wkly. Continue Humalin R U-500 100 units with meals TID. FOLLOW UP 2 MONTHS. If BG >400 add 50 units to next scheduled dose of Humalin R U 500 insulin 06/12/2024
--- OUTSIDE RECORDS SUMMARY | 2024-10-19 18:41 | XMS_ITS | CCD ---
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 Name Role Phone Arpit VIDALKeeganHarrison Primary Care Provider Leona vailable Unavailable Chronic Care Management Unavaila ble Summary Purpose DataExchange Insurance Providers Payer name Policy type / Coverage type Covered democrat ID Effective Begin Date Effective End Date [place] [id number] Unknown Unknown [place] [id number] Unknown Unknown Family history Sister Brittany Suggs Diagnosis Age At Onset No Family Disease Entered N/A Runs in the family Diagnosis Age At Onset No Known Diseases N/A Sister Blanka Mcduffie Diagnosis Age At Onset No Family Disease Entered N/A Social History Social History Element Codes Description Effec tive Dates Tobacco history SNOMED CT: 521146301 Never smoker 01/16 Sexually Active? Unknown No [...] Assisted 09/03/[address]: 365501884 No Alcohol Consum ption 09/02/2020 Allergies, Adverse Reactions, Alerts Substance Reaction Codes Entered Date Inactivated Date Status * NO KNOWN FOOD ALLERGIES Xrefjvg4607/13/2023No Inactive DateActiveLISINOPRILRxNorm: 9904374No Inactive DateActiveMetformin BObHxelzsn84/28/2020No Inactive DateActive* NO KNOWN ENVIRONMENTAL VRASBEYQNPlrswez86/27/2024No Inactive DateActive Problems Condition Codes Effective Dates [...] planning - to document end of life dpnqblenuumQzmuwop33/24/2024ctiveAdvance care planningICD-10: Z71.89 ICD-9: V65.4909/ctiveAmputated toe of [...] E55.9 ICD-9: 268.909/ctiveCallus of heelICD-10: L84 ICD-9: 47467/esolvedGout due to renal impairmentICD-10: M10.30 ICD-9: 274.1005/esolvedHyperhidrosis of palmsICD-10: L74.512 ICD-9: 705.2105/esolvedHyperlipidemia, unspecifiedICD-10: E78.5 ICD-9: 272.405/esolvedOther senior living (current) drug therapyICD-10: Z79.899 ICD-9: V58.6905/esolvedPain of [...] tagICD-10: L91.8 ICD-9: 701.904/esolvedCoronary artery disease involving chemehuevi coronary artery of chemehuevi heart, angina presence unspecifiedICD-10: I25.10 ICD-9: 414.0102/4ActiveInappropriate sexual behaviorICD-10: Z72.89 ICD-9: 312.8910/ctivePre-op evaluationICD-10: Z01.818 ICD-9: V72.8403/ctiveSecondary hypertensionICD-10: I15.9 ICD-9: 405.9903/ctiveDepressionICD-10: F32.9 ICD-9: 27261/esolvedDVT (deep venous thrombosis)ICD-10: I82.409 ICD-9: 453.4009/esolvedEncounter for [...] to other viral communicable diseasesICD-10: Z20.828 ICD-9: V01.79025720JwingqjmQdfbpztfTmlfkcx48/28/2020ActiveDiabetes mellitus Type 5Xkercqv16/28/2020ActiveAnemia in chronic kidney diseaseICD-10: D63.1 02/12/2020ResolvedHyperlipidemia, unspecifiedICD-10: E78.509Resolved Medications Medication Codes Instructions Start Date Stop Date Status Fill Instructions Vascepa 1 gram capsule RxNorm: 7563934 Take 2 Capsule(s) Oral BID 03/30/20 24 025 Active rosuvastatin 40 mg tablet RxNorm: 376028 1 TAB ORALLY EVERY EVENING (DX:CORONARY ARTERY DISEASE) 03/28/20 24 No Stop Date Active venlafaxine ER 75 mg capsule,extended release 24 hr RxNorm: 539522 3 CAPS (225MG) ORALLY DAILY (DX: MOOD DISORDER) 03/28/20 24 No Stop Date Active pregabalin 100 mg capsule RxNorm: 490081 Take 1 Capsule(s) Oral QAM every morning 03/20/20 Inactive cholecalciferol (vitamin D3) 1,250 mcg (50,000 unit) capsule RxNorm: 687319 Take 1 Capsule(s) Oral QW once a [...] Insulin 100 unit/mL (3 mL) subcutaneous RxNorm: 4582891 Inject 40 Unit(s) Subcutaneous BID 03/07/20 025 Inactive Please dispense one month supply. Humulin R U-500 (Concentrated) Insulin 500 unit/mL subcutaneous soln RxNorm: 974500 Inject 100 Unit(s) Subcutaneous AC before meals [...] PRN) to be use with new Accu Mullins meter 03/04/20 Inactive ok to substitute with any covered alternative test strip FreeStyle Chema 2 Sensor kit RxNorm: Use UD as directed 03/02/20 025 Inactive FreeStyle Chema 2 Sensor kit RxNorm: Use UD as directed 03/02/20 Inactive Pen Needle 30 gauge x 16 RxNorm: Pen(s) Use 1 needle as directed TID 03/02/20 Inactive nystatin 100,000 unit/gram topical powder RxNorm: 646272 Apply 1 Application Topical BID as needed [...] (Concentrated) Insulin 500 unit/mL subcutaneous soln RxNorm: 541927 Inject 100 Unit(s) Subcutaneous TID 02/17/20 24 024 Inactive Humulin R U-500 (Concentrated) Insulin 500 unit/mL subcutaneous soln RxNorm: 633059 Inject 100 Unit(s) Subcutaneous TID 02/10/20 24 024 Inactive Basaglar KwikPen U-100 Insulin 100 unit/mL (3 mL) subcutaneous RxNorm: 4185463 Inject 30 Unit(s) Subcutaneous BID 02/10/20 24 024 Inactive Please dispense one month supply. pregabalin 100 mg capsule RxNorm: 760222 Take 1 Capsule(s) Oral QAM every morning 02/07/20 24 024 Inactive isosorbide mononitrate ER 60 mg tablet,extended release 24 hr RxNorm: 322824 Take 1 Tablet(s) Oral QD 02/01/20 24 025 Active aripiprazole 15 mg tablet RxNorm: 400195 Take 1/2 Tablet(s) Oral QD 02/01/20 24 025 Active torsemide 20 mg tablet RxNorm: 412411 1 TAB ORALLY DAILY (DX: EDEMA) 01/27/20 No Stop Date Active potassium chloride ER 20 mEq tablet,extended release(part/cryst) RxNorm: 0747105 2 TABS (40MEQ) ORALLY TWICE DAILY (DX: HYPOKALEMIA) 01/27/20 24 025 Inactive cephalexin 500 mg capsule RxNorm: 520216 Take 1 Capsule(s) Oral QID 12/17/19 24 024 Inactive cephalexin 500 mg capsule RxNorm: 170385 Take 1 Capsule(s) Oral QID 12/17/19 24 024 Inactive acetaminophen 500 mg tablet RxNorm: 952124 (MAX APAP:4GM/24HR) Take 1 Tablet(s) Oral TID as needed for pain 12/10/19 24 024 Inactive torsemide 20 mg tablet RxNorm: 127079 Take 1 Tablet(s) Oral QD 10/26/19 24 Inactive potassium chloride ER 20 mEq tablet,extended release RxNorm: 19800522 Take 2 Tablet(s) Oral BID 10/26/19 24 025 Inactive torsemide 20 mg tablet RxNorm: 999499 Take 1 Tablet(s) Oral QD 10/26/19 24 024 Inactive potassium chloride ER 20 mEq tablet,extended release RxNorm: 127464 Take 2 Tablet(s) Oral BID 10/26/19 24 024 Inactive Artificial Tears (PF) 0.1 %-0.3 % drops in a dropperette RxNorm: 358116 Apply 1-2 Drop(s) Both eyes BID as needed 09/28/19 24 025 Inactive erythromycin 5 mg/gram (0.5 %) eye ointment RxNorm: 572956 Apply 1 Application Both eyes QHS every night at bedtime Instill ~1 cm ribbon into affected eye 09/28/19 24 024 Inactive Artificial Tears (PF) 0.1 %-0.3 % drops in a dropperette RxNorm: 935615 Apply 1-2 Drop(s) Both eyes BID as needed 09/28/19 24 024 Inactive erythromycin 5 mg/gram (0.5 %) eye ointment RxNorm: 394329 Apply 1 Application Both eyes QHS every night at bedtime Instill ~1 cm ribbon into affected eye 09/28/19 024 Inactive acetaminophen 500 mg tablet RxNorm: 645177 (MAX APAP:4GM/24HR) Take 1 Tablet(s) Oral TID as needed for pain 09/24/19 24 Inactive carvedilol 25 mg tablet RxNorm: 607679 Take 1 Tablet(s) Oral QD 09/08/19 No Stop Date Active pregabalin 100 mg capsule RxNorm: 383938 Take 1 Capsule(s) Oral QAM every morning 09/07/19 24 024 Inactive ezetimibe 10 mg tablet RxNorm: 777532 Take 1 Tablet(s) Oral QD 07/13/19 24 025 Inactive bisacodyl 10 mg rectal suppository RxNorm: 492740 Insert 1 Suppository Rectal QD as needed 07/13/19 24 No Stop Date Active polyethylene glycol 3350 17 gram/dose oral powder RxNorm: 654215 Take 17 Gram(s) Oral BID as needed mix in 4-8ox water 07/13/19 24 025 Inactive ketoconazole 2 % shampoo RxNorm: 311304 Apply 1 Application Topical UD as directed 07/13/19 24 No Stop Date Active Ozempic 1 mg/dose (4 mg/3 mL) subcutaneous pen injector RxNorm: 0511270 Inject 1 Milligram(s) Subcutaneous QW once a week 07/13/19 24 No Stop Date Active Guaifenesin AC 10 mg-100 mg/5 mL oral liquid RxNorm: 054180 Take 10 Milliliter(s) Oral Q4H every four hours as needed 07/13/19 24 No Stop Date Active ammonium lactate 12 % topical cream RxNorm: 108943 Apply 1 Application Topical BID 07/13/19 24 025 Inactive hydrocortisone 2.5 % topical cream RxNorm: 117903 Apply 1 Application Topical BID as needed 07/13/19 No Stop Date Active rosuvastatin 20 mg sprinkle capsule RxNorm: 0161453 Take 1 Capsule(s) Oral QD 07/13/19 24 025 Inactive Vascepa 1 gram capsule RxNorm: 9415716 Take 2 Capsule(s) Oral BID 07/13/19 24 024 Inactive rosuvastatin 40 mg tablet RxNorm: 884287 Take 1 Tablet(s) Oral QPM every evening 07/13/19 24 024 Inactive aripiprazole 15 mg tablet RxNorm: 360558 Take 1/2 Tablet(s) Oral QD 07/13/19 24 024 Inactive isosorbide mononitrate ER 60 mg tablet,extended release 24 hr RxNorm: 143686 Take 1 Tablet(s) Oral QD 07/13/19 24 024 Inactive venlafaxine ER 75 mg capsule,extended release 24 hr RxNorm: 741980 Take 3 Capsule(s) Oral QD 07/13/19 24 024 Inactive Basaglar KwikPen U-100 Insulin 100 unit/mL (3 mL) subcutaneous RxNorm: 9320001 Inject 30U SubQ twice daily 07/07/19 24 024 Inactive Please dispense one month supply. Basaglar KwikPen U-100 Insulin 100 unit/mL (3 mL) subcutaneous RxNorm: 4130935 Inject 30U SubQ twice daily 07/07/19 24 024 Inactive Please dispense one month supply. pregabalin 150 mg capsule RxNorm: 147829 Take 1 Capsule(s) Oral QHS every night at bedtime 07/05/19 24 024 Inactive pregabalin 150 mg capsule RxNorm: 589822 Take 1 Capsule(s) Oral QHS every night at bedtime 07/05/19 24 024 Inactive polyethylene glycol 3350 17 gram/dose oral powder RxNorm: 643466 Take 1 Packet Oral QD as needed (1 packet = 17g) mix with 4-8oz of liquid 06/15/19 24 024 Inactive bisacodyl 10 mg rectal suppository RxNorm: 186958 Insert one suppository per rectum once daily as needed for constipation 06/15/19 24 024 Inactive bisacodyl 10 mg rectal suppository RxNorm: 887046 Insert one suppository per rectum once daily as needed for constipation 06/15/19 24 024 Inactive pregabalin 100 mg capsule RxNorm: 620141 Take 1 Capsule(s) Oral QAM every morning 04/27/20 024 Inactive Levemir FlexPen 100 unit/mL (3 mL) solution subcutaneous insulin pen RxNorm: 636105 Inject 30 Unit(s) Subcutaneous BID 04/27/20 23 024 Inactive rosuvastatin 40 mg tablet RxNorm: 738548 Take 1 Tablet(s) Oral QPM every evening 04/16/20 024 Inactive D/C rosuvastatin 20mg venlafaxine ER 75 mg capsule,extended release 24 hr RxNorm: 760339 Take 3 Capsule(s) Oral QD 04/14/20 023 Inactive pregabalin 100 mg capsule RxNorm: 270062 Take 1 Capsule(s) Oral QAM every morning [...] strip clotrimazole 1 % topical cream RxNorm: 661533 Take apply topically to abdominal folds twice daily for 14 days 03/12/20 024 Inactive Ozempic 1 mg/dose (4 mg/3 mL) subcutaneous pen injector RxNorm: 7492870 Inject 1 Milligram(s) Subcutaneous QW once a week 03/11/20 23 023 Inactive rosuvastatin 20 mg tablet RxNorm: 643284 Take 1 Tablet(s) Oral QD 02/26/20 23 023 Inactive d/c pravastatin 80mg Ozempic 1 mg/dose (4 mg/3 mL) subcutaneous pen injector RxNorm: 2038948 Inject 1 Milligram(s) Subcutaneous QW once a week 02/20/20 23 023 Inactive pregabalin 150 mg capsule RxNorm: 701787 Take 1 Capsule(s) Oral HS at bed time 02/19/20 23 023 Inactive pregabalin 100 mg capsule RxNorm: 403147 Take 1 Capsule(s) Oral QAM every morning 02/18/20 23 023 Inactive venlafaxine ER 75 mg capsule,extended release 24 hr RxNorm: 069593 Take 3 Capsule(s) Oral QD 02/04/20 023 Inactive FreeStyle Chema 2 Sensor kit RxNorm: use as directed 02/04/20 23 023 Inactive FreeStyle Chema 2 Sensor kit RxNorm: use as directed 02/04/20 23 024 Inactive fluconazole 150 mg tablet RxNorm: 978533 Take 1 Tablet(s) Oral on day 3 and on day 6 02/03/20 23 024 Inactive chlorthalidone 25 mg tablet RxNorm: 670299 Take 1 Tablet(s) Oral QAM every morning 02/03/20 23 024 Inactive venlafaxine ER 150 mg capsule,extended release 24 hr RxNorm: 171116 Take 1 Capsule(s) Oral QD 02/03/20 023 Inactive acetaminophen 500 mg tablet RxNorm: 138724 1 TABLET ORALLY 3 TIMES DAILY (MAX APAP:4GM/24HR) 12/15/19 23 023 Inactive clotrimazole 1 % topical cream RxNorm: 114820 apply 1g topically to top of feet and in between toes BID 12/09/19 23 025 Inactive potassium chloride ER 20 mEq tablet,extended release RxNorm: 725845 Take 1 Tablet(s) Oral BID 12/09/19 23 024 Inactive d/c 20mEq once daily (sent from hospital) nystatin 100,000 unit/gram topical powder RxNorm: 770017 APPLY TO AFFECTED AREAS TOPICALLY 2 TIMES DAILY 11/21/19 23 023 Inactive Nystop 100,000 unit/gram topical powder RxNorm: 985289 Apply to abd folds, under breasts and L side of groin Topical BID x 14 days, then BID PRN 11/20/19 023 Inactive dx: yeast dermatitis Bengay Ultra Strength 4 %-30 %-10 % topical cream RxNorm: 624783 Apply 1 Gram(s) Topical QID PRN to feet and legs for neuropathic pain 11/11/19 024 Inactive clotrimazole 1 % topical cream RxNorm: 823869 Apply 1/2 Gram(s) Topical BID Apply to affected areas of groin, periarea, and abdominal topically 2 times daily 11/10/19 023 Inactive hydrocortisone 2.5 % topical cream RxNorm: 316892 Apply 1/2 Gram(s) Topical BID as needed 11/10/19 024 Inactive Levemir FlexPen 100 unit/mL (3 mL) solution subcutaneous insulin pen RxNorm: 123570 Inject 30 Unit(s) Subcutaneous BID 10/07/19 023 Inactive Humulin R U-500 (Concentrated) Insulin 500 unit/mL subcutaneous soln RxNorm: 132799 Inject 100 Unit(s) Subcutaneous TID 10/07/19 024 Inactive Ozempic 0.25 mg or 0.5 mg (2 mg/3 mL) subcutaneous pen injector RxNorm: 3870829 Inject 1/2 Milligram(s) Subcutaneous QW once a week 10/07/19 024 Inactive aripiprazole 15 mg tablet RxNorm: 076733 1/2 TAB (7.5MG) ORALLY DAILY (DX:MAJOR DEPRESSIVE DISORDER) 09/23/19 023 Inactive Accu-Chek Guide test strips RxNorm: Use 1 Test Strip QID 09/15/19 23 023 Inactive ok to substitute with any covered alternative test strip Lancets,Thin 28 gauge RxNorm: Use 1 as directed QID 09/15/19 23 023 Inactive torsemide 20 mg tablet RxNorm: 640118 Take 1 Tablet(s) Oral BID 09/09/19 23 024 Inactive d/c once daily dosing carvedilol 25 mg tablet RxNorm: 608176 Take 1 Tablet(s) Oral QD 08/25/19 23 024 Inactive pregabalin 150 mg capsule RxNorm: 849978 1 Capsule(s) Oral HS at bed time 08/18/19 23 023 Inactive pregabalin 100 mg capsule RxNorm: 197846 1 Capsule(s) Oral QAM every morning 08/18/19 23 023 Inactive carvedilol 25 mg tablet RxNorm: 746296 1 Tablet(s) Oral QD 07/28/19 23 023 Inactive lisinopril 20 mg tablet RxNorm: 389044 Give 1 Tablet(s) Oral QD 07/28/19 23 023 Inactive Lyrica 150 mg capsule RxNorm: 465379 Take 1 Capsule(s) Oral QHS every night at bedtime 07/19/19 23 023 Inactive d/c 100mg dose Diflucan 150 mg tablet RxNorm: 506269 Take 1 Tablet(s) Oral QD repeat on day 3 and 6 07/19/19 23 023 Inactive pregabalin 100 mg capsule RxNorm: 870197 Take 1 Capsule(s) Oral QAM every morning 07/19/19 23 023 Inactive gatifloxacin 0.5 % eye drops RxNorm: 555228 Instill 1 Drop(s) as directed TID Instill 1 drop in to affected eye(s) starting 1 day prior to surgery and continue until gone (do not exceed 4 weeks). 07/13/19 23 023 Inactive carvedilol 25 mg tablet RxNorm: 837482 2 Tablet(s) Oral BID 07/13/19 23 023 Inactive Humulin R Regular U-100 Insulin 100 unit/mL injection solution RxNorm: 706511 85 Unit(s) Injection TID 07/13/19 23 023 Inactive ketorolac 0.5 % eye drops RxNorm: 761535 Instill 1 Drop(s) as directed QID Instill 1 drop into affected eye(s) 4 times daily starting 1 day prior to surgery and continue until gone (do not exceed 4 weeks). 07/13/19 23 023 Inactive Diflucan 150 mg tablet RxNorm: 303644 Take 1 Tablet(s) Oral QD repeat on day 3 and 6 06/30/19 23 023 Inactive Accu-Chek Guide test strips RxNorm: Use 1 Test Strip QID Use 1 test strip to monitor blood glucose 4 times daily and as needed. Dx:E11.42. 06/23/19 23 023 Inactive ok to substitute with any covered alternative test strip dextromethorphan-gu aifenesin 10 mg-100 mg/5 mL oral liquid RxNorm: 154744 Take 10 Milliliter(s) Oral every 4 hours as needed for cough 06/19/19 023 Inactive dextromethorphan-gu aifenesin 10 mg-100 mg/5 mL oral liquid RxNorm: 576030 Take 10 Milliliter(s) Oral every 4 hours as needed for cough 06/19/19 23 023 Inactive Lyrica 150 mg capsule RxNorm: 652047 Take 1 Capsule(s) Oral QHS every night at bedtime 06/18/19 23 023 Inactive d/c 100mg dose aripiprazole 15 mg tablet RxNorm: 121586 1/2 TAB (7.5MG) ORALLY DAILY (DX:MAJOR DEPRESSIVE DISORDER) 06/05/19 23 023 Inactive pregabalin 100 mg capsule RxNorm: 701652 1 Capsule(s) Oral QAM every morning 06/02/19 23 023 Inactive Banophen 50 mg capsule RxNorm: 8274057 Take 1 Capsule(s) Oral Q6H every 6 hours as needed 05/19/19 23 No Stop Date Active Novolog Flexpen U-100 Insulin aspart 100 unit/mL (3 mL) subcutaneous RxNorm: 2728527 Inject 10 Unit(s) Subcutaneous QHS every night at bedtime with nighttime snack 04/08/20 22 022 Inactive Novolog Flexpen U-100 Insulin aspart 100 unit/mL (3 mL) subcutaneous RxNorm: 0039220 Inject 42 Unit(s) Subcutaneous TID in addition to sliding scale 04/08/20 022 Inactive d/c 36u albuterol sulfate HFA 90 mcg/actuation aerosol inhaler RxNorm: 3573254 Take 2 Puff(s) Inhalation Q4H every four hours as needed as needed for SOB, cough, or wheezing 04/07/20 030 Active Banophen 50 mg capsule RxNorm: 5809735 Take 1 Capsule(s) Oral Q6H every 6 hours as needed 04/06/20 023 Inactive diphenhydramine 50 mg tablet RxNorm: 2457529 Take 1 Tablet(s) Oral Q6H every 6 hours as needed 04/06/20 022 Inactive diphenhydramine 50 mg tablet RxNorm: 1250174 1 Tablet(s) Oral Q6H every 6 hours as needed 04/06/20 022 Inactive Abilify 15 mg tablet RxNorm: 747890 1/2 Tablet(s) Oral QD 03/10/20 023 Inactive Shingrix (PF) 50 mcg/0.5 mL intramuscular suspension, kit RxNorm: 4275587 Administer 1/2 Milliliter(s) Intramuscular QD one time shingrix step 2 ( step 1 given 11/04/21) WITH needle - Nursing please administer upon arrival and once administered post a bridge message with date of administration, back tender pulp drier, expiration date, and lot# so we can update [facility] 02/18/20 22 022 Inactive dispense with needle Shingrix (PF) 50 mcg/0.5 mL intramuscular suspension, kit RxNorm: 8884492 Administer 1/2 Milliliter(s) Intramuscular QD one time shingrix step 2 ( step 1 given 11/04/21) WITH needle - Nursing please administer upon arrival and once administered post a bridge message with date of administration, back tender pulp drier, expiration date, and lot# so we can update [facility] 02/18/20 22 022 Inactive dispense with needle polyethylene glycol 3350 17 gram/dose oral powder RxNorm: 225603 Take 17=1 capful Gram(s) Oral QD mix with 4-8oz of liquid 01/08/20 22 025 Inactive take this in addition to BID prn order Lyrica 100 mg capsule RxNorm: 469043 Take 1 Capsule(s) Oral QAM every morning 01/08/20 22 022 Inactive d/c 50mg dose acetaminophen 500 mg tablet RxNorm: 037526 Take 1 Tablet(s) Oral TID 01/08/20 22 022 Inactive d/c PRN order Lyrica 150 mg capsule RxNorm: 494729 Take 1 Capsule(s) Oral QHS every night at bedtime 01/08/20 22 023 Inactive d/c 100mg dose Abilify 5 mg tablet RxNorm: 973708 Take 1 Tablet(s) Oral QD take 1 tab po QD #30 refill 5 dx: MDD 12/12/19 22 022 Inactive Abilify 5 mg tablet RxNorm: 689028 Take 1 Tablet(s) Oral QD take 1 tab po QD #30 refill 5 dx: MDD 12/12/19 22 022 Inactive Novolog Flexpen U-100 Insulin aspart 100 unit/mL (3 mL) subcutaneous RxNorm: 6800579 Inject 42 Unit(s) Subcutaneous TID in addition to sliding scale 12/10/19 22 022 Inactive d/c 36u chlorthalidone 25 mg tablet RxNorm: 635606 Take 1 Tablet(s) Oral QAM every morning 12/10/19 22 023 Inactive pregabalin 50 mg capsule RxNorm: 309609 Take 1 Capsule(s) Oral QAM every morning 11/12/19 22 022 Inactive tetanus-diphtheria toxoids-Td 2 Lf unit-2 Lf unit/0.5 mL IM suspension RxNorm: 139 Take 0.5 Miscellaneous Intramuscular 11/12/19 22 022 Inactive need tdap - nursing to administer upon arrival pregabalin 50 mg capsule RxNorm: 240058 Take 1 Capsule(s) Oral QAM every morning 10/16/19 22 022 Inactive pregabalin 50 mg capsule RxNorm: 435758 Take 1 Capsule(s) Oral QAM every morning 10/16/19 22 022 Inactive pregabalin 50 mg capsule RxNorm: 281141 1 Capsule(s) Oral QAM every morning 10/15/19 22 Inactive Shingrix (PF) 50 mcg/0.5 mL intramuscular suspension, kit RxNorm: 2414581 Administer 1/2 Milliliter(s) Intramuscular one time Nursing please administer upon arrival and once administered post a bridge message with date of administration, back tender pulp drier, expiration date, and lot# so we can update [facility]. 10/09/19 22 022 Inactive shingrix step 1 Shingrix (PF) 50 mcg/0.5 mL intramuscular suspension, kit RxNorm: 1555037 Administer 1/2 Milliliter(s) Intramuscular one time Nursing please administer upon arrival and once administered post a bridge message with date of administration, back tender pulp drier, expiration date, and lot# so we can [...] aspart 100 unit/mL (3 mL) subcutaneous RxNorm: 9814964 Inject 10 Unit(s) Subcutaneous QHS every night at bedtime with nighttime snack 10/08/19 22 022 Inactive Shingrix (PF) 50 mcg/0.5 mL intramuscular suspension, kit RxNorm: 3253263 ADMINISTER 2-DOSE SERIES PER CDC GUIDELINES 10/08/19 22 022 Active Shingrix (PF) 50 mcg/0.5 mL intramuscular suspension, kit RxNorm: 2078986 ADMINISTER 2-DOSE SERIES PER CDC GUIDELINES 10/08/19 22 022 Inactive Novolog Flexpen U-100 Insulin aspart 100 unit/mL (3 mL) subcutaneous RxNorm: 8232640 Inject 36 Unit(s) Subcutaneous TID in addition to sliding scale 10/08/19 22 022 Inactive cholecalciferol (vitamin D3) 1,250 mcg (50,000 unit) capsule RxNorm: 501191 Take 1 Capsule(s) Oral QW once a week 10/08/19 024 Inactive Novofine Autocover 30 gauge x 1/3 needle RxNorm: Use 1 Miscellaneous UD as directed Use 1 needle as directed to administer insulin 5 times a day Dx:E11.42. 10/03/19 22 022 Inactive ok to substitute with any covered alternative pen needle benzoyl peroxide 10 % topical cleanser RxNorm: 190123 Apply 1 Application Topical QD apply to face, wash rinse and dry once daily (may change to QOD if drying) 08/19/19 22 022 Inactive (%covered by insurance) #60ml refill 11 dx: acne benzoyl peroxide 10 % topical cleanser RxNorm: 495999 Apply 1 Application Topical QD apply to face, wash rinse and dry once daily (may change to QOD if drying) 08/19/19 22 022 Inactive (%covered by insurance) #60ml refill 11 dx: acne benzoyl peroxide 10 % topical cleanser RxNorm: 670985 Apply 1 Application Topical QD apply to face, wash rinse and dry once daily (may change to QOD if drying) 08/19/19 22 022 Inactive (%covered by insurance) #60ml refill 11 dx: acne Lyrica 50 mg capsule RxNorm: 917026 Take 1 Capsule(s) Oral QAM every morning Take 1 capsule by mouth once daily 08/19/19 22 022 Inactive benzoyl peroxide 10 % topical cleanser RxNorm: 950551 Apply 1 Application Topical QD apply to face, wash rinse and dry once daily (may change to QOD if drying) 08/19/19 22 022 Inactive (%covered by insurance) #60ml refill 11 dx: acne Lyrica 100 mg capsule RxNorm: 467997 Take 1 Capsule(s) Oral QHS every night at bedtime Take 1 capsule by mouth once daily at bedtime 08/19/19 22 022 Inactive Lyrica 100 mg capsule RxNorm: 013923 Take 1 Capsule(s) Oral QHS every night at bedtime Take 1 capsule by mouth once daily at bedtime 08/16/19 22 022 Inactive Lyrica 50 mg capsule RxNorm: 293482 Take 1 Capsule(s) Oral QAM every morning Take 1 capsule by mouth once daily 08/16/19 22 022 Inactive Levemir FlexTouch U-100 Insulin 100 unit/mL (3 mL) subcutaneous pen RxNorm: 304214 Inject 86 Unit(s) Subcutaneous BID 08/05/19 22 022 Inactive d/c 83units BID Lyrica 100 mg capsule RxNorm: 561869 Take 1 Capsule(s) Oral QHS every night at bedtime Take 1 capsule by mouth once daily at bedtime 07/14/19 22 022 Inactive Lyrica 50 mg capsule RxNorm: 990169 Take 1 Capsule(s) Oral QAM every morning Take 1 capsule by mouth once daily 07/14/19 22 022 Inactive Levemir FlexTouch U-100 Insulin 100 unit/mL (3 mL) subcutaneous pen RxNorm: 193960 Inject 83 Unit(s) Subcutaneous BID 07/08/19 22 [...] test strip hydralazine 50 mg tablet RxNorm: 792831 Take 1 Tablet(s) Oral QID 05/05/20 21 022 Inactive venlafaxine ER 225 mg tablet,extended release 24 hr RxNorm: 161537 Take 1 Tablet(s) Oral QD 05/05/20 21 021 Inactive venlafaxine ER 225 mg tablet,extended release 24 hr RxNorm: 747075 Take 1 Tablet(s) Oral QD 05/05/20 21 022 Inactive isosorbide mononitrate ER 30 mg tablet,extended release 24 hr RxNorm: 206871 Take 1 Tablet(s) Oral QD 05/05/20 21 024 Inactive hydralazine 50 mg tablet RxNorm: 830083 Take 1 Tablet(s) Oral QID 05/05/20 21 021 Inactive aspirin 81 mg tablet,delayed release RxNorm: 867708 Take 1 Tablet(s) Oral QD 03/31/20 022 Inactive Vitamin D2 1,250 mcg (50,000 unit) capsule RxNorm: 2200926 Take 1 Capsule(s) Oral QW once a week x 12 weeks 03/31/20 022 Inactive Vitamin D2 1,250 mcg (50,000 unit) capsule RxNorm: 8204917 Take 1 Capsule(s) Oral QW once a week 03/31/20 021 Inactive Zetia 10 mg tablet RxNorm: 608968 Take 1 Tablet(s) Oral QD 03/31/20 024 Inactive Zetia 10 mg tablet RxNorm: 239332 Take 1 Tablet(s) Oral QD 03/31/20 021 Inactive hydralazine 25 mg tablet RxNorm: 350093 Take 1 Tablet(s) Oral QID 03/31/20 021 Inactive hydralazine 25 mg tablet RxNorm: 676373 Take 1 Tablet(s) Oral QID 03/31/20 021 Inactive hydralazine 10 mg tablet RxNorm: 184241 Take 1 Tablet(s) Oral QID 03/03/20 021 Inactive cephalexin 500 mg tablet RxNorm: 137562 Take 1 Tablet(s) Oral QID 02/27/20 021 Inactive cephalexin 500 mg tablet RxNorm: 798517 Take 1 Tablet(s) Oral QID 02/27/20 021 Inactive lisinopril 40 mg tablet RxNorm: 120012 Take 1 Tablet(s) Oral QD 02/11/20 023 Inactive Eliquis 5 mg tablet RxNorm: 8590156 Take 1 Tablet(s) Oral BID 01/05/20 21 025 Inactive Eliquis 5 mg tablet RxNorm: 7197127 Take 2 Tablet(s) Oral QD 01/01/20 21 021 Inactive Lyrica 50 mg capsule RxNorm: 660528 Take 1 Capsule(s) Oral QAM every morning 12/24/19 21 021 Inactive Lyrica 100 mg capsule RxNorm: 945334 Take 1 Capsule(s) Oral QHS every night at bedtime 12/24/19 21 021 Inactive clotrimazole 1 % topical cream RxNorm: 943849 Apply to right foot and toes Topical BID 12/04/19 21 023 Inactive metoprolol succinate ER 200 mg tablet,extended release 24 hr RxNorm: 433317 Take 1 Tablet(s) Oral QD 12/04/19 21 023 Inactive ciprofloxacin 500 mg tablet RxNorm: 162982 Take 1 Tablet(s) Oral QD 11/30/19 21 021 Inactive DX ofloxacin otic drops Accu-Chek Guide test strips RxNorm: USE 1 TO CHECK GLUCOSE 4 TIMES DAILY AND NEEDED 11/15/19 21 023 Inactive Blood Glucose Test strips RxNorm: Use 1 Test Strip QID at PRN 11/05/19 21 023 Inactive E11.42 lisinopril 30 mg tablet RxNorm: 908988 Take 1 Tablet(s) Oral QD 10/30/19 21 021 Inactive lisinopril 20 mg tablet RxNorm: 886089 Take 1 Tablet(s) Oral QD 10/23/19 021 Inactive lisinopril 20 mg tablet RxNorm: 279358 Take 1 Tablet(s) Oral QD 10/23/19 021 Inactive lisinopril 10 mg tablet RxNorm: 841963 Take 1 Tablet(s) Oral QD 10/02/19 021 Inactive icosapent ethyl 1 gram capsule RxNorm: 3678330 Take 2 Capsule(s) (2 gm) Oral BID with meals 09/12/19 024 Inactive Okay to dispense one 2gm tab if you have that available. icosapent ethyl 1 gram capsule RxNorm: 3771901 Take 2 Capsule(s) Oral BID 09/12/19 21 021 Inactive Okay to dispense one 2gm tab if you have that available. amlodipine 10 mg tablet RxNorm: 889671 Take 1 Tablet(s) Oral QD 09/04/19 21 021 Inactive aspirin 81 mg tablet,delayed release RxNorm: 667737 Take 1 Tablet(s) Oral QD 09/04/19 21 021 Inactive Levemir FlexTouch U-100 Insulin 100 unit/mL (3 mL) subcutaneous pen RxNorm: 122773 Inject 150 Unit(s) Subcutaneous BID 09/04/19 21 022 Inactive venlafaxine ER 150 mg tablet,extended release 24 hr RxNorm: 821761 Take 1 Tablet(s) Oral QD 09/04/19 21 021 Inactive clotrimazole-betame thasone 1 %-0.05 % topical cream RxNorm: 380618 Apply to rash on red area on left abdomen/chest Topical BID 08/10/19 Inactive amlodipine 5 mg tablet RxNorm: 475541 Take 1 Tablet(s) Oral QD 07/31/19 021 Inactive cephalexin 500 mg tablet RxNorm: 392202 Take 1 Tablet(s) Oral BID BID - Twice Daily 07/31/19 021 Inactive Start 08/01/20 pantoprazole 40 mg tablet,delayed release RxNorm: 009867 Take 1 Tablet(s) Oral QAM every morning 07/08/19 025 Inactive senna 8.6 mg tablet RxNorm: 595876 Take 1 Tablet(s) Oral QD 07/08/19 025 Inactive carbamazepine 200 mg tablet RxNorm: 956699 Take 1 Tablet(s) Oral BID 07/08/19 025 Inactive clopidogrel 75 mg tablet RxNorm: 078697 Take 1 Tablet(s) Oral QD 07/08/19 021 Inactive Blood Glucose Test strips RxNorm: Use 1 Test Strip QID at PRN 07/08/19 Inactive E11.42 Novolog Flexpen U-100 Insulin aspart 100 unit/mL (3 mL) subcutaneous RxNorm: 3535126 Administer per sliding scale Milliliter(s) Subcutaneous TID 151-200: 10 u; 201-250: 20 u; 251-300: 30 u; 301-350: 40 u; 351-400: 50 u. 07/08/19 022 Inactive lisinopril 5 mg tablet RxNorm: 573406 Take 1 Tablet(s) Oral QD 07/08/19 021 Inactive Novolog Flexpen U-100 Insulin aspart 100 unit/mL (3 mL) subcutaneous RxNorm: 1391850 Inject 85 Unit(s) Subcutaneous TID 07/08/19 022 Inactive pravastatin 80 mg tablet RxNorm: 969416 Take 1 Tablet(s) Oral QHS every night at bedtime 07/08/19 023 Inactive clotrimazole 1 % topical cream RxNorm: 428668 Apply to bilateral groin areas Topical BID 07/08/19 022 Inactive metoprolol succinate ER 200 mg tablet,extended release 24 hr RxNorm: 232768 Take 1 Tablet(s) Oral QD 07/08/19 021 Inactive Vitamin D3 25 mcg (1,000 unit) tablet RxNorm: 126775 Take 1 Tablet(s) Oral QD 07/08/19 021 Inactive isosorbide dinitrate 30 mg tablet RxNorm: 827504 Take 1 Tablet(s) Oral QD 07/08/19 021 Inactive Levemir FlexTouch U-100 Insulin 100 unit/mL (3 mL) subcutaneous pen RxNorm: 570018 Inject 140 Unit(s) Subcutaneous BID 07/08/19 021 Inactive torsemide 20 mg tablet RxNorm: 278722 Take 1 Tablet(s) Oral QD 07/08/19 023 Inactive venlafaxine 75 mg tablet RxNorm: 204736 Take 1 Tablet(s) Oral QD 07/08/19 021 Inactive acetaminophen 500 mg tablet RxNorm: 190249 Take 1 Tablet(s) Oral TID as needed for headache 06/18/19 021 Inactive acetaminophen 500 mg tablet RxNorm: 855298 Take 1 Tablet(s) Oral TID as needed for headache 06/18/19 021 Inactive Lyrica 100 mg capsule RxNorm: 639609 Take 1 Capsule(s) Oral QHS every night at bedtime 06/11/19 021 Inactive Lyrica 50 mg capsule RxNorm: 482698 Take 1 Capsule(s) Oral QAM every morning 06/10/19 21 021 Inactive hydrocortisone 2.5 % topical cream RxNorm: 486295 Apply to bilateral groin creases Topical BID 05/15/20 20 021 Inactive clotrimazole 1 % topical cream RxNorm: 443836 Apply to bilateral groin areas Topical BID 05/15/20 20 021 Inactive Lyrica 50 mg capsule RxNorm: 385936 Take 1 Capsule(s) Oral QAM every morning 05/14/20 20 Inactive Lyrica 100 mg capsule RxNorm: 689227 Take 1 Capsule(s) Oral QHS every night [...] Inactive Nystop 100,000 unit/gram topical powder RxNorm: 695189 Apply to abd folds, under breasts and L side of groin Topical BID x 14 days, then BID PRN 04/08/20 20 Inactive dx: yeast dermatitis Lyrica 100 mg capsule RxNorm: 235851 Take 1 Capsule(s) Oral QHS every night at bedtime 03/13/20 20 Inactive Lyrica 50 mg capsule RxNorm: 253013 Take 1 Capsule(s) Oral QAM every morning 03/13/20 20 Inactive ketoconazole 2 % shampoo RxNorm: 996257 Apply Topical two times a week with showers 03/11/20 20 024 Inactive cholecalciferol (vitamin D3) 50 mcg (2,000 unit) tablet RxNorm: 283415 Take 1 Tablet(s) Oral QD 03/11/20 20 021 Inactive Zetia 10 mg tablet RxNorm: 614144 Take 1 Tablet(s) Oral QD 03/07/20 20 021 Inactive Zetia 10 mg tablet RxNorm: 476876 Take 1 Tablet(s) Oral QD 03/07/20 20 Inactive Lyrica 50 mg capsule RxNorm: 630899 Take 1 Capsule(s) Oral QAM every morning 02/15/20 20 Inactive Lyrica 100 mg capsule RxNorm: 798789 Take 1 Capsule(s) Oral QHS every night at bedtime 02/15/20 20 Inactive Lyrica 100 mg capsule RxNorm: 640540 Take 1 Capsule(s) Oral QHS every night at bedtime 02/15/20 20 Inactive Lyrica 50 mg capsule RxNorm: 496508 Take 1 Capsule(s) Oral QAM every morning 02/15/20 Inactive metoprolol succinate ER 200 mg tablet,extended release 24 hr RxNorm: 403305 Take 1 Tablet(s) Oral QD 08/12/19 025 Inactive loperamide 2 mg capsule RxNorm: 723786 Take 1 Capsule(s) Oral QID as needed 09/06/19 25 025 Inactive hydralazine 50 mg tablet RxNorm: 865623 Take 1 Tablet(s) Oral QID 08/12/19 025 Inactive Soft Touch Lancets RxNorm: miscellaneous 03/04/20 24 025 Inactive venlafaxine ER 75 mg capsule,extended release 24 hr RxNorm: 519373 Take 3 Capsule(s) Oral QD 06/12/19 023 Inactive polyethylene glycol 3350 17 gram/dose oral powder RxNorm: 627196 Take 17=1 capful Gram(s) Oral BID as needed mix with 4-8oz of liquid 06/12/19 22 024 Inactive icosapent ethyl 1 gram capsule RxNorm: 8756914 Take 2 Capsule(s) (2 gm) Oral BID with meals 10/07/19 23 023 Inactive Okay to dispense one 2gm tab if you have that available. Levemir FlexTouch U-100 Insulin 100 unit/mL (3 mL) subcutaneous pen RxNorm: 515097 Inject 80 Unit(s) Subcutaneous BID 07/14/19 23 023 Inactive Novolog Flexpen U-100 Insulin aspart 100 unit/mL (3 mL) subcutaneous RxNorm: 1750848 Insert 30 Unit(s) Subcutaneous TID with meals [...] Planned Activity Notes Codes Status Date Referral: [facility] [address] [id number] [place] [id number]/06/2025Referral: [facility]/Endocrinology WPtel: [address] [facility] [id number] [place]ReferralNo Records [id number]/24/2025Referral: [facility] WPtel: [address] [id number] [place]erralRecords Rrgsgoff86/08/2023Referral: [facility] WPtel: [address] [facility] [address] [id number]/12/2022Referral: General CardiologyReferralCompleted 1Referral: General PsychologistReferralClosedReferral: General PsychiatristReferralPatient/Family [...] Sister Jyotsna involved in his care cell# [phone] Guardian: Don (tapan met in person 09/01/21), now has Lexii (same group as don)AWV 9.. Lab Schedule: Mar-/September*September (CBC with diff, CMP, A1c) March: (CBC, CMP, A1c, Lipids, VitD)10.15.2023: CBC, CMP Na 139, K2.6L, creat 1.45H, eGFR 54L, BG 513H, A1c, VitD 32. 6.: BMP Na 140, K3.7, BG 397 H. BUN 24H, Creat 1.09, eGFR 76L. 6.19.2024: ER labs CBC, CMP K 3.9 Creat [...] appointment 05.26.2024 with Jessa Webster MD at [facility]. Start Pioglitazone 15 mg QD. Stop Basaglar insulin. Increase Ozempic 2 mg once wkly. Continue Humalin R U-500 100 units with meals TID. FOLLOW UP 2 MONTHS. If BG >400 add 50 units to next scheduled dose of Humalin R U 500 insulin 06/12/2024
--- OUTSIDE RECORDS SUMMARY | 2024-10-19 18:42 | XMS_ITS | CCD ---
Author Organization Unknown Care Team Providers Care Associate Marketing Manager Name Role Phone Harrison Durham Primary Care Provider Leona vailable Unavailable Chronic Care Management Unavaila ble Summary Purpose DataExchange Insurance Providers Payer name Policy type / Coverage type Covered constitution party ID Effective Begin Date Effective End Date [place] B [id number] Unknown Unknown [place] B [id number] Unknown Unknown Family history Sister Brittany Suggs [...] on file 07/11/[address]: 380857675 Never smoker 01/16 Sexually Active? Unknown No [...] Single 10/07/2021 Living arrangements Unknown Prison 09/03/[address]: 922917332 No Alcohol Consum ption 09/02/2020 Allergies, Adverse Reactions, Alerts Substance Reaction Codes Entered Date Inactivated Date Status * NO KNOWN FOOD ALLERGIES Zgtrmcs9907/13/2023No Inactive DateActiveLISINOPRILRxNorm: 678823002/12/2020No Inactive DateActiveMetformin EKlHmlggdk47/28/2020No Inactive DateActive* NO KNOWN ENVIRONMENTAL FANURZIAHFzctikq52/27/2024No Inactive DateActive Problems Condition Codes Effective Dates Condition St atus Body mass index [BMI] 60.0-69.9, adult S NOMED CT: 728559425 ICD-10: Z68.44 ICD-9: V85.44035ActiveConstipation by delayed colonic transitICD-10: K59.01 ICD-9: 564.01035ActiveMixed incontinenceSNOMED CT: 02007905 ICD-10: N39.46 ICD-9: 788.3303/5ActiveType 2 diabetes mellitus [...] planning - to document end of life [id number] toe of right footICD-10: S98.131A ICD-9: 895.009/ctiveAnnual [...] E55.9 ICD-9: 268.909/ctiveCallus of heelICD-10: L84 ICD-9: 37845/esolvedGout due to renal impairmentICD-10: M10.30 ICD-9: 274.1005esolvedHyperhidrosis of palmsICD-10: L74.512 ICD-9: 705.21010/12/2023esolvedHyperlipidemia, unspecifiedICD-10: E78.5 ICD-9: 272.405/esolvedOther assistant terminal manager [...] tagICD-10: L91.8 ICD-9: 701.904/esolvedCoronary artery disease involving assinibo[place] and sioux coronary artery of assinibo[place] and sioux heart, angina presence unspecifiedICD-10: I25.10 ICD-9: 414.0102/ctiveInappropriate sexual behaviorICD-10: Z72.89 ICD-9: 312.8910/ctivePre-op evaluationICD-10: Z01.818 ICD-9: V72.8403/28/2023ActiveSecondary hypertensionICD-10: I15.9 ICD-9: 405.9903/3ActiveDepressionICD-10: F32.9 ICD-9: 91040/2ResolvedDVT (deep venous thrombosis)ICD-10: I82.409 ICD-9: 453.4009/2ResolvedEncounter for [...] to other viral communicable diseasesICD-10: Z20.828 ICD-9: V01.7902/1410ZlibpkklOtxnwpraPbfychq71/28/2020ActiveDiabetes mellitus Type 8Spboutq96/28/2020ActiveAnemia in chronic kidney diseaseICD-10: D63.1 02/12/2020ResolvedHyperlipidemia, unspecifiedICD-10: E78.509Resolved Medications Medication Codes Instructions Start Date Stop Date Status Fill Instructions senna 8.6 mg tablet RxNorm: 589724 Take 1 Tablet(s) Oral QD as needed for constipation on day 2 of no bowel movement 08/09/19 25 025 Inactive Miralax 17 gram/dose oral powder RxNorm: 694106 Administer 17 Gram(s) Oral QD as needed for constipation on day 3 of no bowel movement 08/09/19 25 025 Inactive senna 8.6 mg tablet RxNorm: 312882 Take 1 Tablet(s) Oral QD as needed for constipation on day 2 of no bowel movement 08/09/19 25 025 Inactive Miralax 17 gram/dose oral powder RxNorm: 992038 Administer 17 Gram(s) Oral QD as needed for constipation on day 3 of no bowel movement 08/09/19 025 Inactive pregabalin 100 mg capsule RxNorm: 757584 Take 1 Capsule(s) Oral QAM every morning [...] (Concentrated) Insulin 500 unit/mL subcutaneous soln RxNorm: 824003 Inject 100 Unit(s) Subcutaneous AC before meals Three times daily before meals. 07/24/19 25 025 Inactive ammonium lactate 12 % topical cream RxNorm: 965699 Apply 1 Application Topical BID 07/20/19 No Stop Date Active ezetimibe 10 mg tablet RxNorm: 058075 Take 1 Tablet(s) Oral QD 07/18/19 No Stop Date Active senna 8.6 mg tablet RxNorm: 615366 Take 1 Tablet(s) Oral QD 07/18/19 25 025 Inactive metoprolol succinate ER 200 mg tablet,extended release 24 hr RxNorm: 600270 Take 1 Tablet(s) Oral QD 06/19/19 No Stop Date Active pantoprazole 40 mg tablet,delayed release RxNorm: 406617 Take 1 Tablet(s) Oral QAM every morning 02/03/20 25 No Stop Date Active hydralazine 50 mg tablet RxNorm: 421667 Take 1 Tablet(s) Oral QID 06/19/19 25 No Stop Date Active carbamazepine 200 mg tablet RxNorm: 204728 Take 1 Tablet(s) Oral BID 06/19/19 25 No Stop Date Active amlodipine 10 mg tablet RxNorm: 871455 Take 1 Tablet(s) Oral QD 06/19/19 25 No Stop Date Active Eliquis 5 mg tablet RxNorm: 9969846 Take 1 Tablet(s) Oral BID 06/19/19 25 No Stop Date Active pen needle, diabetic 30 gauge x 3/16 RxNorm: Use 1 6 times per day w/insulin 06/14/19 25 026 Active pen needle, diabetic 30 gauge x 3/16 RxNorm: Use 1 needle 6 times per day w/insulin 06/14/19 25 025 Inactive nystatin 100,000 unit/gram topical powder RxNorm: 129869 Apply 1 Application Topical BID as needed abdominal/breast /groin folds 05/24/19 25 026 Active pregabalin 100 mg capsule RxNorm: 094510 Take 1 Capsule(s) Oral QAM every morning 05/22/19 25 025 Inactive nystatin 100,000 unit/gram topical powder RxNorm: 916801 Apply 1 Application Topical BID as needed abdominal/breast /groin folds 04/11/20 24 024 Inactive chlorthalidone 25 mg tablet RxNorm: 510182 Take 1 Tablet(s) Oral QAM every morning 04/06/20 24 No Stop Date Active pregabalin 150 mg capsule RxNorm: 026905 Take 1 Capsule(s) Oral QHS every night at bedtime 03/31/20 24 024 Inactive Vascepa 1 gram capsule RxNorm: 8733108 Take 2 Capsule(s) Oral BID 03/30/20 24 025 Active rosuvastatin 40 mg tablet RxNorm: 910630 1 TAB ORALLY EVERY EVENING (DX:CORONARY ARTERY DISEASE) 03/28/20 24 No Stop Date Active venlafaxine ER 75 mg capsule,extended release 24 hr RxNorm: 018240 3 CAPS (225MG) ORALLY DAILY (DX: MOOD DISORDER) 03/28/20 No Stop Date Active pregabalin 100 mg capsule RxNorm: 925304 Take 1 Capsule(s) Oral QAM every morning 03/20/20 Inactive cholecalciferol (vitamin D3) 1,250 mcg (50,000 unit) capsule RxNorm: 372470 Take 1 Capsule(s) Oral QW once a [...] Insulin 100 unit/mL (3 mL) subcutaneous RxNorm: 6622198 Inject 40 Unit(s) Subcutaneous BID 03/07/20 025 Inactive Please dispense one month supply. Humulin R U-500 (Concentrated) Insulin 500 unit/mL subcutaneous soln RxNorm: 794788 Inject 100 Unit(s) Subcutaneous AC before meals [...] PRN) to be use with new Accu [place] meter 03/04/20 Inactive ok to substitute with any covered alternative test strip FreeStyle Chema 2 Sensor kit RxNorm: Use UD as directed 03/02/20 Inactive Pen Needle 30 gauge x 5/16 RxNorm: Pen(s) Use 1 needle as directed TID 03/02/20 Inactive nystatin 100,000 unit/gram topical powder RxNorm: 106193 Apply 1 Application Topical BID as needed [...] (Concentrated) Insulin 500 unit/mL subcutaneous soln RxNorm: 736669 Inject 100 Unit(s) Subcutaneous TID 02/17/20 24 024 Inactive Humulin R U-500 (Concentrated) Insulin 500 unit/mL subcutaneous soln RxNorm: 790774 Inject 100 Unit(s) Subcutaneous TID 02/10/20 24 024 Inactive Basaglar KwikPen U-100 Insulin 100 unit/mL (3 mL) subcutaneous RxNorm: 5644704 Inject 30 Unit(s) Subcutaneous BID 02/10/20 24 024 Inactive Please dispense one month supply. pregabalin 100 mg capsule RxNorm: 468739 Take 1 Capsule(s) Oral QAM every morning 02/07/20 24 024 Inactive isosorbide mononitrate ER 60 mg tablet,extended release 24 hr RxNorm: 629271 Take 1 Tablet(s) Oral QD 02/01/20 24 Active aripiprazole 15 mg tablet RxNorm: 757472 Take 1/2 Tablet(s) Oral QD 02/01/20 24 Active torsemide 20 mg tablet RxNorm: 535844 1 TAB ORALLY DAILY (DX: EDEMA) 01/27/20 No Stop Date Active potassium chloride ER 20 mEq tablet,extended release(part/cryst) RxNorm: 6740472 2 TABS (40MEQ) ORALLY TWICE DAILY (DX: HYPOKALEMIA) 01/27/20 24 025 Inactive cephalexin 500 mg capsule RxNorm: 599882 Take 1 Capsule(s) Oral QID 12/17/19 24 024 Inactive cephalexin 500 mg capsule RxNorm: 764270 Take 1 Capsule(s) Oral QID 12/17/19 24 024 Inactive acetaminophen 500 mg tablet RxNorm: 683652 (MAX APAP:4GM/24HR) Take 1 Tablet(s) Oral TID as needed for pain 12/10/19 24 024 Inactive torsemide 20 mg tablet RxNorm: 134325 Take 1 Tablet(s) Oral QD 10/26/19 24 024 Inactive potassium chloride ER 20 mEq tablet,extended release RxNorm: 379100 Take 2 Tablet(s) Oral BID 10/26/19 24 024 Inactive torsemide 20 mg tablet RxNorm: 155667 Take 1 Tablet(s) Oral QD 10/26/19 24 Inactive potassium chloride ER 20 mEq tablet,extended release RxNorm: 434280 Take 2 Tablet(s) Oral BID 10/26/19 24 025 Inactive Artificial Tears (PF) 0.1 %-0.3 % drops in a dropperette RxNorm: 257064 Apply 1-2 Drop(s) Both eyes BID as needed 09/28/19 24 Inactive erythromycin 5 mg/gram (0.5 %) eye ointment RxNorm: 266883 Apply 1 Application Both eyes QHS every night at bedtime Instill ~1 cm ribbon into affected eye 09/28/19 24 024 Inactive Artificial Tears (PF) 0.1 %-0.3 % drops in a dropperette RxNorm: 802727 Apply 1-2 Drop(s) Both eyes BID as needed 09/28/19 24 Inactive erythromycin 5 mg/gram (0.5 %) eye ointment RxNorm: 200990 Apply 1 Application Both eyes QHS every night at bedtime Instill ~1 cm ribbon into affected eye 09/28/19 24 Inactive acetaminophen 500 mg tablet RxNorm: 324794 (MAX APAP:4GM/24HR) Take 1 Tablet(s) Oral TID as needed for pain 09/24/19 24 Inactive carvedilol 25 mg tablet RxNorm: 996257 Take 1 Tablet(s) Oral QD 09/08/19 24 No Stop Date Active pregabalin 100 mg capsule RxNorm: 696395 Take 1 Capsule(s) Oral QAM every morning 09/07/19 24 024 Inactive bisacodyl 10 mg rectal suppository RxNorm: 706553 Insert 1 Suppository Rectal QD as needed 07/13/19 24 No Stop Date Active ketoconazole 2 % shampoo RxNorm: 703411 Apply 1 Application Topical UD as directed 07/13/19 24 No Stop Date Active Ozempic 1 mg/dose (4 mg/3 mL) subcutaneous pen injector RxNorm: 6334923 Inject 1 Milligram(s) Subcutaneous QW once a week 07/13/19 24 No Stop Date Active Guaifenesin AC 10 mg-100 mg/5 mL oral liquid RxNorm: 403597 Take 10 Milliliter(s) Oral Q4H every four hours as needed 07/13/19 24 No Stop Date Active hydrocortisone 2.5 % topical cream RxNorm: 033974 Apply 1 Application Topical BID as needed 07/13/19 24 No Stop Date Active rosuvastatin 20 mg sprinkle capsule RxNorm: 1763363 Take 1 Capsule(s) Oral QD 07/13/19 24 025 Inactive rosuvastatin 40 mg tablet RxNorm: 185900 Take 1 Tablet(s) Oral QPM every evening 07/13/19 24 024 Inactive ezetimibe 10 mg tablet RxNorm: 473190 Take 1 Tablet(s) Oral QD 07/13/19 24 025 Inactive polyethylene glycol 3350 17 gram/dose oral powder RxNorm: 339589 Take 17 Gram(s) Oral BID as needed mix in 4-8ox water 07/13/19 24 025 Inactive aripiprazole 15 mg tablet RxNorm: 410185 Take 1/2 Tablet(s) Oral QD 07/13/19 24 024 Inactive isosorbide mononitrate ER 60 mg tablet,extended release 24 hr RxNorm: 984167 Take 1 Tablet(s) Oral QD 07/13/19 24 024 Inactive ammonium lactate 12 % topical cream RxNorm: 415411 Apply 1 Application Topical BID 07/13/19 24 025 Inactive Vascepa 1 gram capsule RxNorm: 8312595 Take 2 Capsule(s) Oral BID 07/13/19 24 024 Inactive venlafaxine ER 75 mg capsule,extended release 24 hr RxNorm: 476363 Take 3 Capsule(s) Oral QD 07/13/19 24 024 Inactive Basaglar KwikPen U-100 Insulin 100 unit/mL (3 mL) subcutaneous RxNorm: 5957892 Inject 30U SubQ twice daily 07/07/19 24 024 Inactive Please dispense one month supply. Basaglar KwikPen U-100 Insulin 100 unit/mL (3 mL) subcutaneous RxNorm: 4758053 Inject 30U SubQ twice daily 07/07/19 24 024 Inactive Please dispense one month supply. pregabalin 150 mg capsule RxNorm: 727353 Take 1 Capsule(s) Oral QHS every night at bedtime 07/05/19 24 024 Inactive pregabalin 150 mg capsule RxNorm: 198880 Take 1 Capsule(s) Oral QHS every night at bedtime 07/05/19 24 024 Inactive polyethylene glycol 3350 17 gram/dose oral powder RxNorm: 315505 Take 1 Packet Oral QD as needed (1 packet = 17g) mix with 4-8oz of liquid 06/15/19 24 024 Inactive bisacodyl 10 mg rectal suppository RxNorm: 775649 Insert one suppository per rectum once daily as needed for constipation 06/15/19 024 Inactive bisacodyl 10 mg rectal suppository RxNorm: 877274 Insert one suppository per rectum once daily as needed for constipation 06/15/19 024 Inactive pregabalin 100 mg capsule RxNorm: 424934 Take 1 Capsule(s) Oral QAM every morning 04/27/20 024 Inactive Levemir FlexPen 100 unit/mL (3 mL) solution subcutaneous insulin pen RxNorm: 618549 Inject 30 Unit(s) Subcutaneous BID 04/27/20 024 Inactive rosuvastatin 40 mg tablet RxNorm: 239893 Take 1 Tablet(s) Oral QPM every evening 04/16/20 024 Inactive D/C rosuvastatin 20mg venlafaxine ER 75 mg capsule,extended release 24 hr RxNorm: 656365 Take 3 Capsule(s) Oral QD 04/14/20 023 Inactive pregabalin 100 mg capsule RxNorm: 501600 Take 1 Capsule(s) Oral QAM every morning [...] strip clotrimazole 1 % topical cream RxNorm: 660039 Take apply topically to abdominal folds twice daily for 14 days 03/12/20 024 Inactive Ozempic 1 mg/dose (4 mg/3 mL) subcutaneous pen injector RxNorm: 1565761 Inject 1 Milligram(s) Subcutaneous QW once a week 03/11/20 023 Inactive rosuvastatin 20 mg tablet RxNorm: 230350 Take 1 Tablet(s) Oral QD 02/26/20 23 023 Inactive d/c pravastatin 80mg Ozempic 1 mg/dose (4 mg/3 mL) subcutaneous pen injector RxNorm: 1843684 Inject 1 Milligram(s) Subcutaneous QW once a week 02/20/20 23 023 Inactive pregabalin 150 mg capsule RxNorm: 293771 Take 1 Capsule(s) Oral HS at bed time 02/19/20 023 Inactive pregabalin 100 mg capsule RxNorm: 620451 Take 1 Capsule(s) Oral QAM every morning 02/18/20 23 023 Inactive venlafaxine ER 75 mg capsule,extended release 24 hr RxNorm: 196399 Take 3 Capsule(s) Oral QD 02/04/20 23 023 Inactive FreeStyle Chema 2 Sensor kit RxNorm: use as directed 02/04/20 23 023 Inactive FreeStyle Chema 2 Sensor kit RxNorm: use as directed 02/04/20 23 024 Inactive fluconazole 150 mg tablet RxNorm: 495989 Take 1 Tablet(s) Oral on day 3 and on day 6 02/03/20 024 Inactive venlafaxine ER 150 mg capsule,extended release 24 hr RxNorm: 974826 Take 1 Capsule(s) Oral QD 02/03/20 23 023 Inactive chlorthalidone 25 mg tablet RxNorm: 437670 Take 1 Tablet(s) Oral QAM every morning 02/03/20 23 024 Inactive acetaminophen 500 mg tablet RxNorm: 059888 1 TABLET ORALLY 3 TIMES DAILY (MAX APAP:4GM/24HR) 12/15/19 23 023 Inactive clotrimazole 1 % topical cream RxNorm: 534935 apply 1g topically to top of feet and in between toes BID 12/09/19 23 025 Inactive potassium chloride ER 20 mEq tablet,extended release RxNorm: 317378 Take 1 Tablet(s) Oral BID 12/09/19 23 024 Inactive d/c 20mEq once daily (sent from hospital) nystatin 100,000 unit/gram topical powder RxNorm: 058904 APPLY TO AFFECTED AREAS TOPICALLY 2 TIMES DAILY 11/21/19 23 023 Inactive Nystop 100,000 unit/gram topical powder RxNorm: 553685 Apply to abd folds, under breasts and L side of groin Topical BID x 14 days, then BID PRN 11/20/19 023 Inactive dx: yeast dermatitis [place] Ultra Strength 4 %-30 %-10 % topical cream RxNorm: 426307 Apply 1 Gram(s) Topical QID PRN to feet and legs for neuropathic pain 11/11/19 024 Inactive clotrimazole 1 % topical cream RxNorm: 058672 Apply 1/2 Gram(s) Topical BID Apply to affected areas of groin, periarea, and abdominal topically 2 times daily 11/10/19 023 Inactive hydrocortisone 2.5 % topical cream RxNorm: 789695 Apply 1/2 Gram(s) Topical BID as needed 11/10/19 024 Inactive Levemir FlexPen 100 unit/mL (3 mL) solution subcutaneous insulin pen RxNorm: 144816 Inject 30 Unit(s) Subcutaneous BID 10/07/19 23 023 Inactive Humulin R U-500 (Concentrated) Insulin 500 unit/mL subcutaneous soln RxNorm: 774316 Inject 100 Unit(s) Subcutaneous TID 10/07/19 024 Inactive Ozempic 0.25 mg or 0.5 mg (2 mg/3 mL) subcutaneous pen injector RxNorm: 6232628 Inject 1/2 Milligram(s) Subcutaneous QW once a week 10/07/19 024 Inactive aripiprazole 15 mg tablet RxNorm: 543674 1/2 TAB (7.5MG) ORALLY DAILY (DX:MAJOR DEPRESSIVE DISORDER) 09/23/19 023 Inactive Accu-Chek Guide test strips RxNorm: Use 1 Test Strip QID 09/15/19 23 023 Inactive ok to substitute with any covered alternative test strip Lancets,Thin 28 gauge RxNorm: Use 1 as directed QID 09/15/19 23 023 Inactive torsemide 20 mg tablet RxNorm: 841895 Take 1 Tablet(s) Oral BID 09/09/19 23 024 Inactive d/c once daily dosing carvedilol 25 mg tablet RxNorm: 737573 Take 1 Tablet(s) Oral QD 08/25/19 23 024 Inactive pregabalin 150 mg capsule RxNorm: 201270 1 Capsule(s) Oral HS at bed time 08/18/19 23 023 Inactive pregabalin 100 mg capsule RxNorm: 496309 1 Capsule(s) Oral QAM every morning 08/18/19 23 023 Inactive carvedilol 25 mg tablet RxNorm: 362824 1 Tablet(s) Oral QD 07/28/19 23 023 Inactive lisinopril 20 mg tablet RxNorm: 626550 Give 1 Tablet(s) Oral QD 07/28/19 23 023 Inactive Lyrica 150 mg capsule RxNorm: 746581 Take 1 Capsule(s) Oral QHS every night at bedtime 07/19/19 23 023 Inactive d/c 100mg dose Diflucan 150 mg tablet RxNorm: 268170 Take 1 Tablet(s) Oral QD repeat on day 3 and 6 07/19/19 23 023 Inactive pregabalin 100 mg capsule RxNorm: 715049 Take 1 Capsule(s) Oral QAM every morning 07/19/19 23 023 Inactive gatifloxacin 0.5 % eye drops RxNorm: 036218 Instill 1 Drop(s) as directed TID Instill 1 drop in to affected eye(s) starting 1 day prior to surgery and continue until gone (do not exceed 4 weeks). 07/13/19 23 023 Inactive carvedilol 25 mg tablet RxNorm: 802707 2 Tablet(s) Oral BID 07/13/19 23 023 Inactive Humulin R Regular U-100 Insulin 100 unit/mL injection solution RxNorm: 690546 85 Unit(s) Injection TID 07/13/19 23 023 Inactive ketorolac 0.5 % eye drops RxNorm: 394025 Instill 1 Drop(s) as directed QID Instill 1 drop into affected eye(s) 4 times daily starting 1 day prior to surgery and continue until gone (do not exceed 4 weeks). 07/13/19 23 023 Inactive Diflucan 150 mg tablet RxNorm: 853653 Take 1 Tablet(s) Oral QD repeat on day 3 and 6 06/30/19 23 023 Inactive Accu-Chek Guide test strips RxNorm: Use 1 Test Strip QID Use 1 test strip to monitor blood glucose 4 times daily and as needed. Dx:E11.42. 06/23/19 23 023 Inactive ok to substitute with any covered alternative test strip dextromethorphan-gu aifenesin 10 mg-100 mg/5 mL oral liquid RxNorm: 885739 Take 10 Milliliter(s) Oral every 4 hours as needed for cough 06/19/19 023 Inactive dextromethorphan-gu aifenesin 10 mg-100 mg/5 mL oral liquid RxNorm: 604875 Take 10 Milliliter(s) Oral every 4 hours as needed for cough 06/19/19 023 Inactive Lyrica 150 mg capsule RxNorm: 346657 Take 1 Capsule(s) Oral QHS every night at bedtime 06/18/19 23 023 Inactive d/c 100mg dose aripiprazole 15 mg tablet RxNorm: 014672 /2 TAB (7.5MG) ORALLY DAILY (DX:MAJOR DEPRESSIVE DISORDER) 06/05/19 23 023 Inactive pregabalin 100 mg capsule RxNorm: 701632 1 Capsule(s) Oral QAM every morning 06/02/19 23 023 Inactive Banophen 50 mg capsule RxNorm: 9094952 Take 1 Capsule(s) Oral Q6H every 6 hours as needed 05/19/19 23 No Stop Date Active Novolog Flexpen U-100 Insulin aspart 100 unit/mL (3 mL) subcutaneous RxNorm: 6373092 Inject 10 Unit(s) Subcutaneous QHS every night at bedtime with nighttime snack 04/08/20 22 022 Inactive Novolog Flexpen U-100 Insulin aspart 100 unit/mL (3 mL) subcutaneous RxNorm: 6048369 Inject 42 Unit(s) Subcutaneous TID in addition to sliding scale 04/08/20 022 Inactive d/c 36u albuterol sulfate HFA 90 mcg/actuation aerosol inhaler RxNorm: 6417779 Take 2 Puff(s) Inhalation Q4H every four hours as needed as needed for SOB, cough, or wheezing 04/07/20 030 Active Banophen 50 mg capsule RxNorm: 3410127 Take 1 Capsule(s) Oral Q6H every 6 hours as needed 04/06/20 023 Inactive diphenhydramine 50 mg tablet RxNorm: 8436360 Take 1 Tablet(s) Oral Q6H every 6 hours as needed 04/06/20 022 Inactive diphenhydramine 50 mg tablet RxNorm: 0301478 1 Tablet(s) Oral Q6H every 6 hours as needed 04/06/20 022 Inactive Abilify 15 mg tablet RxNorm: 257649 1/2 Tablet(s) Oral QD 03/10/20 023 Inactive Shingrix (PF) 50 mcg/0.5 mL intramuscular suspension, kit RxNorm: 4464997 Administer 1/2 Milliliter(s) Intramuscular QD one time shingrix step 2 ( step 1 given 11/04/21) WITH needle - Nursing please administer upon arrival and once administered post a bridge message with date of administration, underwriting sales representative, expiration date, and lot# so we can update [facility] 02/18/20 22 022 Inactive dispense with needle Shingrix (PF) 50 mcg/0.5 mL intramuscular suspension, kit RxNorm: 8392939 Administer 1/2 Milliliter(s) Intramuscular QD one time shingrix step 2 ( step 1 given 11/04/21) WITH needle - Nursing please administer upon arrival and once administered post a bridge message with date of administration, underwriting sales representative, expiration date, and lot# so we can update [facility] 02/18/20 22 022 Inactive dispense with needle Lyrica 100 mg capsule RxNorm: 307193 Take 1 Capsule(s) Oral QAM every morning 01/08/20 22 022 Inactive d/c 50mg dose acetaminophen 500 mg tablet RxNorm: 251729 Take 1 Tablet(s) Oral TID 01/08/20 22 022 Inactive d/c PRN order Lyrica 150 mg capsule RxNorm: 452447 Take 1 Capsule(s) Oral QHS every night at bedtime 01/08/20 22 023 Inactive d/c 100mg dose polyethylene glycol 3350 17 gram/dose oral powder RxNorm: 980501 Take 17=1 capful Gram(s) Oral QD mix with 4-8oz of liquid 01/08/20 22 025 Inactive take this in addition to BID prn order Abilify 5 mg tablet RxNorm: 332033 Take 1 Tablet(s) Oral QD take 1 tab po QD #30 refill 5 dx: MDD 12/12/19 22 022 Inactive Abilify 5 mg tablet RxNorm: 075972 Take 1 Tablet(s) Oral QD take 1 tab po QD #30 refill 5 dx: MDD 12/12/19 22 022 Inactive Novolog Flexpen U-100 Insulin aspart 100 unit/mL (3 mL) subcutaneous RxNorm: 7104090 Inject 42 Unit(s) Subcutaneous TID in addition to sliding scale 12/10/19 22 022 Inactive d/c 36u chlorthalidone 25 mg tablet RxNorm: 190847 Take 1 Tablet(s) Oral QAM every morning 12/10/19 023 Inactive pregabalin 50 mg capsule RxNorm: 770363 Take 1 Capsule(s) Oral QAM every morning 11/12/19 22 022 Inactive tetanus-diphtheria toxoids-Td 2 Lf unit-2 Lf unit/0.5 mL IM suspension RxNorm: 139 Take 0.5 Miscellaneous Intramuscular 11/12/19 22 022 Inactive need tdap - nursing to administer upon arrival pregabalin 50 mg capsule RxNorm: 443347 Take 1 Capsule(s) Oral QAM every morning 10/16/19 22 022 Inactive pregabalin 50 mg capsule RxNorm: 969107 Take 1 Capsule(s) Oral QAM every morning 10/16/19 22 Inactive pregabalin 50 mg capsule RxNorm: 456497 1 Capsule(s) Oral QAM every morning 10/15/19 22 Inactive Shingrix (PF) 50 mcg/0.5 mL intramuscular suspension, kit RxNorm: 6992073 Administer 1/2 Milliliter(s) Intramuscular one time Nursing please administer upon arrival and once administered post a bridge message with date of administration, underwriting sales representative, expiration date, and lot# so we can update [facility]. 10/09/19 22 Inactive shingrix step 1 Shingrix (PF) 50 mcg/0.5 mL intramuscular suspension, kit RxNorm: 6768462 Administer 1/2 Milliliter(s) Intramuscular one time Nursing please administer upon arrival and once administered post a bridge message with date of administration, underwriting sales representative, expiration date, and lot# so [...] aspart 100 unit/mL (3 mL) subcutaneous RxNorm: 6661851 Inject 10 Unit(s) Subcutaneous QHS every night at bedtime with nighttime snack 10/08/19 22 Inactive Shingrix (PF) 50 mcg/0.5 mL intramuscular suspension, kit RxNorm: 5154566 ADMINISTER 2-DOSE SERIES PER CDC GUIDELINES 10/08/19 22 Active Shingrix (PF) 50 mcg/0.5 mL intramuscular suspension, kit RxNorm: 7930433 ADMINISTER 2-DOSE SERIES PER CDC GUIDELINES 10/08/19 22 022 Inactive Novolog Flexpen U-100 Insulin aspart 100 unit/mL (3 mL) subcutaneous RxNorm: 3188568 Inject 36 Unit(s) Subcutaneous TID in addition to sliding scale 10/08/19 22 022 Inactive cholecalciferol (vitamin D3) 1,250 mcg (50,000 unit) capsule RxNorm: 555120 Take 1 Capsule(s) Oral QW once a week 10/08/19 024 Inactive Novofine Autocover 30 gauge x 1/3 needle RxNorm: Use 1 Miscellaneous UD as directed Use 1 needle as directed to administer insulin 5 times a day Dx:E11.42. 10/03/19 22 022 Inactive ok to substitute with any covered alternative pen needle benzoyl peroxide 10 % topical cleanser RxNorm: 310573 Apply 1 Application Topical QD apply to face, wash rinse and dry once daily (may change to QOD if drying) 08/19/19 22 022 Inactive (%covered by insurance) #60ml refill 11 dx: acne benzoyl peroxide 10 % topical cleanser RxNorm: 613780 Apply 1 Application Topical QD apply to face, wash rinse and dry once daily (may change to QOD if drying) 08/19/19 22 022 Inactive (%covered by insurance) #60ml refill 11 dx: acne benzoyl peroxide 10 % topical cleanser RxNorm: 760214 Apply 1 Application Topical QD apply to face, wash rinse and dry once daily (may change to QOD if drying) 08/19/19 22 022 Inactive (%covered by insurance) #60ml refill 11 dx: acne Lyrica 50 mg capsule RxNorm: 109146 Take 1 Capsule(s) Oral QAM every morning Take 1 capsule by mouth once daily 08/19/19 22 022 Inactive benzoyl peroxide 10 % topical cleanser RxNorm: 601970 Apply 1 Application Topical QD apply to face, wash rinse and dry once daily (may change to QOD if drying) 08/19/19 22 022 Inactive (%covered by insurance) #60ml refill 11 dx: acne Lyrica 100 mg capsule RxNorm: 221786 Take 1 Capsule(s) Oral QHS every night at bedtime Take 1 capsule by mouth once daily at bedtime 08/19/19 22 022 Inactive Lyrica 100 mg capsule RxNorm: 178738 Take 1 Capsule(s) Oral QHS every night at bedtime Take 1 capsule by mouth once daily at bedtime 08/16/19 22 022 Inactive Lyrica 50 mg capsule RxNorm: 837009 Take 1 Capsule(s) Oral QAM every morning Take 1 capsule by mouth once daily 08/16/19 22 022 Inactive Levemir FlexTouch U-100 Insulin 100 unit/mL (3 mL) subcutaneous pen RxNorm: 305040 Inject 86 Unit(s) Subcutaneous BID 08/05/19 22 022 Inactive d/c 83units BID Lyrica 100 mg capsule RxNorm: 763690 Take 1 Capsule(s) Oral QHS every night at bedtime Take 1 capsule by mouth once daily at bedtime 07/14/19 22 022 Inactive Lyrica 50 mg capsule RxNorm: 777036 Take 1 Capsule(s) Oral QAM every morning Take 1 capsule by mouth once daily 07/14/19 22 022 Inactive Levemir FlexTouch U-100 Insulin 100 unit/mL (3 mL) subcutaneous pen RxNorm: 621420 Inject 83 Unit(s) Subcutaneous BID 07/08/19 22 [...] test strip hydralazine 50 mg tablet RxNorm: 255824 Take 1 Tablet(s) Oral QID 05/05/20 21 022 Inactive venlafaxine ER 225 mg tablet,extended release 24 hr RxNorm: 049333 Take 1 Tablet(s) Oral QD 05/05/20 21 021 Inactive venlafaxine ER 225 mg tablet,extended release 24 hr RxNorm: 868865 Take 1 Tablet(s) Oral QD 05/05/20 21 022 Inactive isosorbide mononitrate ER 30 mg tablet,extended release 24 hr RxNorm: 347833 Take 1 Tablet(s) Oral QD 05/05/20 21 024 Inactive hydralazine 50 mg tablet RxNorm: 610901 Take 1 Tablet(s) Oral QID 05/05/20 21 021 Inactive aspirin 81 mg tablet,delayed release RxNorm: 590346 Take 1 Tablet(s) Oral QD 03/31/20 21 022 Inactive Vitamin D2 1,250 mcg (50,000 unit) capsule RxNorm: 4399769 Take 1 Capsule(s) Oral QW once a week x 12 weeks 03/31/20 21 022 Inactive Vitamin D2 1,250 mcg (50,000 unit) capsule RxNorm: 5744668 Take 1 Capsule(s) Oral QW once a week 11 021 Inactive Zetia 10 mg tablet RxNorm: 365859 Take 1 Tablet(s) Oral QD 03/31/20 024 Inactive Zetia 10 mg tablet RxNorm: 139417 Take 1 Tablet(s) Oral QD 03/31/20 021 Inactive hydralazine 25 mg tablet RxNorm: 077733 Take 1 Tablet(s) Oral QID 03/31/20 021 Inactive hydralazine 25 mg tablet RxNorm: 529036 Take 1 Tablet(s) Oral QID 03/31/20 021 Inactive hydralazine 10 mg tablet RxNorm: 686742 Take 1 Tablet(s) Oral QID 03/03/20 021 Inactive cephalexin 500 mg tablet RxNorm: 023165 Take 1 Tablet(s) Oral QID 02/27/20 021 Inactive cephalexin 500 mg tablet RxNorm: 408838 Take 1 Tablet(s) Oral QID 02/27/20 021 Inactive lisinopril 40 mg tablet RxNorm: 374580 Take 1 Tablet(s) Oral QD 02/11/20 023 Inactive Eliquis 5 mg tablet RxNorm: 4131428 Take 1 Tablet(s) Oral BID 01/05/20 21 025 Inactive Eliquis 5 mg tablet RxNorm: 4868813 Take 2 Tablet(s) Oral QD 01/01/20 21 021 Inactive Lyrica 50 mg capsule RxNorm: 544909 Take 1 Capsule(s) Oral QAM every morning 12/24/19 21 021 Inactive Lyrica 100 mg capsule RxNorm: 113152 Take 1 Capsule(s) Oral QHS every night at bedtime 12/24/19 21 021 Inactive clotrimazole 1 % topical cream RxNorm: 264685 Apply to right foot and toes Topical BID 12/04/19 21 023 Inactive metoprolol succinate ER 200 mg tablet,extended release 24 hr RxNorm: 194585 Take 1 Tablet(s) Oral QD 12/04/19 21 023 Inactive ciprofloxacin 500 mg tablet RxNorm: 224528 Take 1 Tablet(s) Oral QD 11/30/19 21 021 Inactive DX ofloxacin otic drops Accu-Chek Guide test strips RxNorm: USE 1 TO CHECK GLUCOSE 4 TIMES DAILY AND NEEDED 11/15/19 21 023 Inactive Blood Glucose Test strips RxNorm: Use 1 Test Strip QID at PRN 11/05/19 21 023 Inactive E11.42 lisinopril 30 mg tablet RxNorm: 724026 Take 1 Tablet(s) Oral QD 10/30/19 021 Inactive lisinopril 20 mg tablet RxNorm: 185611 Take 1 Tablet(s) Oral QD 10/23/19 021 Inactive lisinopril 20 mg tablet RxNorm: 483291 Take 1 Tablet(s) Oral QD 10/23/19 021 Inactive lisinopril 10 mg tablet RxNorm: 345029 Take 1 Tablet(s) Oral QD 10/02/19 021 Inactive icosapent ethyl 1 gram capsule RxNorm: 6984353 Take 2 Capsule(s) (2 gm) Oral BID with meals 09/12/19 024 Inactive Okay to dispense one 2gm tab if you have that available. icosapent ethyl 1 gram capsule RxNorm: 0696806 Take 2 Capsule(s) Oral BID 09/12/19 021 Inactive Okay to dispense one 2gm tab if you have that available. amlodipine 10 mg tablet RxNorm: 270319 Take 1 Tablet(s) Oral QD 09/04/19 21 021 Inactive aspirin 81 mg tablet,delayed release RxNorm: 124709 Take 1 Tablet(s) Oral QD 09/04/19 21 021 Inactive Levemir FlexTouch U-100 Insulin 100 unit/mL (3 mL) subcutaneous pen RxNorm: 165417 Inject 150 Unit(s) Subcutaneous BID 09/04/19 21 022 Inactive venlafaxine ER 150 mg tablet,extended release 24 hr RxNorm: 561737 Take 1 Tablet(s) Oral QD 09/04/19 021 Inactive clotrimazole-betame thasone 1 %-0.05 % topical cream RxNorm: 735167 Apply to rash on red area on left abdomen/chest Topical BID 08/10/19 21 021 Inactive amlodipine 5 mg tablet RxNorm: 384430 Take 1 Tablet(s) Oral QD 07/31/19 21 Inactive cephalexin 500 mg tablet RxNorm: 947123 Take 1 Tablet(s) Oral BID BID - Twice Daily 07/31/19 21 021 Inactive Start 08/01/20 pantoprazole 40 mg tablet,delayed release RxNorm: 385378 Take 1 Tablet(s) Oral QAM every morning 07/08/19 025 Inactive clopidogrel 75 mg tablet RxNorm: 979224 Take 1 Tablet(s) Oral QD 07/08/19 021 Inactive Blood Glucose Test strips RxNorm: Use 1 Test Strip QID at PRN 07/08/19 Inactive E11.42 senna 8.6 mg tablet RxNorm: 581737 Take 1 Tablet(s) Oral QD 07/08/19 025 Inactive Novolog Flexpen U-100 Insulin aspart 100 unit/mL (3 mL) subcutaneous RxNorm: 5221524 Administer per sliding scale Milliliter(s) Subcutaneous TID 151-200: 10 u; 201-250: 20 u; 251-300: 30 u; 301-350: 40 u; 351-400: 50 u. 07/08/19 022 Inactive lisinopril 5 mg tablet RxNorm: 507731 Take 1 Tablet(s) Oral QD 07/08/19 021 Inactive Novolog Flexpen U-100 Insulin aspart 100 unit/mL (3 mL) subcutaneous RxNorm: 9402820 Inject 85 Unit(s) Subcutaneous TID 07/08/19 21 022 Inactive pravastatin 80 mg tablet RxNorm: 142472 Take 1 Tablet(s) Oral QHS every night at bedtime 07/08/19 023 Inactive clotrimazole 1 % topical cream RxNorm: 334566 Apply to bilateral groin areas Topical BID 07/08/19 21 022 Inactive metoprolol succinate ER 200 mg tablet,extended release 24 hr RxNorm: 465788 Take 1 Tablet(s) Oral QD 07/08/19 21 021 Inactive Vitamin D3 25 mcg (1,000 unit) tablet RxNorm: 727097 Take 1 Tablet(s) Oral QD 07/08/19 021 Inactive isosorbide dinitrate 30 mg tablet RxNorm: 914666 Take 1 Tablet(s) Oral QD 07/08/19 021 Inactive carbamazepine 200 mg tablet RxNorm: 427979 Take 1 Tablet(s) Oral BID 07/08/19 025 Inactive Levemir FlexTouch U-100 Insulin 100 unit/mL (3 mL) subcutaneous pen RxNorm: 934456 Inject 140 Unit(s) Subcutaneous BID 07/08/19 021 Inactive torsemide 20 mg tablet RxNorm: 707296 Take 1 Tablet(s) Oral QD 07/08/19 023 Inactive venlafaxine 75 mg tablet RxNorm: 146027 Take 1 Tablet(s) Oral QD 07/08/19 021 Inactive acetaminophen 500 mg tablet RxNorm: 350115 Take 1 Tablet(s) Oral TID as needed for headache 06/18/19 021 Inactive acetaminophen 500 mg tablet RxNorm: 098248 Take 1 Tablet(s) Oral TID as needed for headache 06/18/19 021 Inactive Lyrica 100 mg capsule RxNorm: 596943 Take 1 Capsule(s) Oral QHS every night at bedtime 06/11/19 021 Inactive Lyrica 50 mg capsule RxNorm: 625299 Take 1 Capsule(s) Oral QAM every morning 06/10/19 21 021 Inactive hydrocortisone 2.5 % topical cream RxNorm: 662482 Apply to bilateral groin creases Topical BID 05/15/20 20 021 Inactive clotrimazole 1 % topical cream RxNorm: 938129 Apply to bilateral groin areas Topical BID 12/30/ Inactive Lyrica 50 mg capsule RxNorm: 950588 Take 1 Capsule(s) Oral QAM every morning 05/14/20 20 Inactive Lyrica 100 mg capsule RxNorm: 904683 Take 1 Capsule(s) Oral QHS every night [...] Inactive Nystop 100,000 unit/gram topical powder RxNorm: 163639 Apply to abd folds, under breasts and L side of groin Topical BID x 14 days, then BID PRN 04/08/20 20 Inactive dx: yeast dermatitis Lyrica 100 mg capsule RxNorm: 944524 Take 1 Capsule(s) Oral QHS every night at bedtime 03/13/20 20 Inactive Lyrica 50 mg capsule RxNorm: 225589 Take 1 Capsule(s) Oral QAM every morning 03/13/20 20 Inactive ketoconazole 2 % shampoo RxNorm: 227804 Apply Topical two times a week with showers 03/11/20 20 024 Inactive cholecalciferol (vitamin D3) 50 mcg (2,000 unit) tablet RxNorm: 674927 Take 1 Tablet(s) Oral QD 03/11/20 20 021 Inactive Zetia 10 mg tablet RxNorm: 252460 Take 1 Tablet(s) Oral QD 03/07/20 021 Inactive Zetia 10 mg tablet RxNorm: 046420 Take 1 Tablet(s) Oral QD 03/07/20 020 Inactive Lyrica 50 mg capsule RxNorm: 904289 Take 1 Capsule(s) Oral QAM every morning 02/15/20 20 020 Inactive Lyrica 100 mg capsule RxNorm: 904827 Take 1 Capsule(s) Oral QHS every night at bedtime 02/15/20 020 Inactive Lyrica 100 mg capsule RxNorm: 808707 Take 1 Capsule(s) Oral QHS every night at bedtime 02/15/20 Inactive Lyrica 50 mg capsule RxNorm: 861344 Take 1 Capsule(s) Oral QAM every morning 02/15/20 Inactive loperamide 2 mg capsule RxNorm: 088119 Take 1 Capsule(s) Oral QID as needed 09/06/19 025 Inactive venlafaxine ER 75 mg capsule,extended release 24 hr RxNorm: 213907 Take 3 Capsule(s) Oral QD 06/12/19 023 Inactive polyethylene glycol 3350 17 gram/dose oral powder RxNorm: 689349 Take 17=1 capful Gram(s) Oral BID as needed mix with 4-8oz of liquid 06/12/19 22 024 Inactive icosapent ethyl 1 gram capsule RxNorm: 1328173 Take 2 Capsule(s) (2 gm) Oral BID with meals 10/07/19 023 Inactive Okay to dispense one 2gm tab if you have that available. Levemir FlexTouch U-100 Insulin 100 unit/mL (3 mL) subcutaneous pen RxNorm: 569920 Inject 80 Unit(s) Subcutaneous BID 07/14/19 23 023 Inactive metoprolol succinate ER 200 mg tablet,extended release 24 hr RxNorm: 440756 Take 1 Tablet(s) Oral QD 08/12/19 23 025 Inactive hydralazine 50 mg tablet RxNorm: 102659 Take 1 Tablet(s) Oral QID 08/12/192 025 Inactive Soft Touch Lancets RxNorm: miscellaneous 03/04/20 24 025 Inactive Novolog Flexpen U-100 Insulin aspart 100 unit/mL (3 mL) subcutaneous RxNorm: 4923985 Insert 30 Unit(s) Subcutaneous TID with meals [...] [facility] [address] [id number] [place]ReferralAppoint[place] [id number]/06/2025Referral: [facility]/Endocrinology WPtel: [address] [facility] [address] [id number] [place]ReferralNo Records [id number]/24/2025Referral: [facility] [address] [address] [id number] [place]ReferralRecords [id number]/08/2023Referral: [facility] WPtel: [address] [facility] [address] [id number]/12/2022Referral: General CardiologyReferralCompleted 1Referral: General PsychologistReferralClosedReferral: General PsychiatristReferralPatient/Family [...] Sister Jyotsna involved in his care cell# [phone] Guardian: Don (tapan met in person 09/01/21), [...] Webster MD at [facility]. Start Pioglitazone 15 mg QD. Stop Basaglar insulin. Increase Ozempic 2 mg once wkly. Continue Humalin R U-500 100 units with meals TID. FOLLOW UP 2 MONTHS. If BG >400 add 50 units to next scheduled dose of Humalin R U 500 insulin 06/12/2024
--- OUTSIDE RECORDS SUMMARY | 2024-10-19 18:44 | XMS_ITS | CCD ---
Author Organization Unknown Care Team Providers Care Director Global Intelligence Name Role Phone Harrison Durham Primary Care Provider Leona vailable Unavailable Chronic Care Management Unavaila ble Summary Purpose DataExchange Insurance Providers Payer name Policy type / Coverage type Covered green party ID Effective Begin Date Effective End Date Medicare [place] Part B [id number] Unknown Unknown Medicaid [place] Medicare Part B [id number] Unknown Unknown Family history Sister Brittany Suggs [...] on file 07/11/[address]: 158723367 Never smoker 01/16 Sexually Active? Unknown No [...] Unknown Longterm 09/03/[address]: 598352216 No Alcohol Consum ption 09/02/2020 Allergies, Adverse Reactions, Alerts Substance Reaction Codes Entered Date Inactivated Date Status * NO KNOWN FOOD ALLERGIES Nqqolzj9007/13/2023No Inactive DateActiveLISINOPRILRxNorm: 029288702/12/2020No Inactive DateActiveMetformin INbFklxmro06/28/2020No Inactive DateActive* NO KNOWN ENVIRONMENTAL [id number]/27/2024No Inactive DateActive Problems Condition Codes Effective Dates [...] planning - to document end of life ppqymftoilkSxvbqnc12/24/2024ctiveAmputated toe of right footICD-10: S98.131A ICD-9: 895.ctiveAnnual [...] E55.9 ICD-9: 268.909ctiveCallus of heelICD-10: L84 ICD-9: 98266/esolvedGout due to renal impairmentICD-10: M10.30 ICD-9: 274.1005esolvedHyperhidrosis of palmsICD-10: L74.512 ICD-9: 705.21010/12/2023esolvedHyperlipidemia, unspecifiedICD-10: E78.5 ICD-9: 272.405/esolvedOther retirement (current) drug therapyICD-10: Z79.899 ICD-9: V58.6905/esolvedPain of [...] L91.8 ICD-9: 701.904esolvedCoronary artery disease involving [place] coronary artery of [place] heart, angina presence unspecifiedICD-10: I25.10 ICD-9: 414.0102/4ActiveInappropriate sexual behaviorICD-10: Z72.89 ICD-9: 312.8910/ctivePre-op evaluationICD-10: Z01.818 ICD-9: V72.8403/ctiveSecondary hypertensionICD-10: I15.9 ICD-9: 405.9903/ctiveDepressionICD-10: F32.9 ICD-9: 186782ResolvedDVT (deep venous thrombosis)ICD-10: I82.409 ICD-9: 453.4009/2ResolvedEncounter for [...] to other viral communicable diseasesICD-10: Z20.828 ICD-9: V01.7902/3233IuffmzpnPvniwqmiHyqjzxm30/28/2020ActiveDiabetes mellitus Type 4Dmxvquy26/28/2020ActiveAnemia in chronic kidney diseaseICD-10: D63.1 02/12/2020ResolvedHyperlipidemia, unspecifiedICD-10: E78.509Resolved Medications Medication Codes Instructions Start Date Stop Date Status Fill Instructions pregabalin 100 mg capsule RxNorm: 542627 Take 1 Capsule(s) Oral QAM every morning 08/08/19 25 025 Inactive Accu-Chek Guide test strips RxNorm: Use 1 Test Strip TID to test blood glucose, Dx: E11.42 08/02/19 25 No Stop Date Active ok to substitute with any covered alternative test strip Lancets,Thin 28 gauge RxNorm: Use 1 as directed TID lancet, Dx: E11.42 08/02/19 25 No Stop Date Active Humulin R U-500 (Concentrated) Insulin 500 unit/mL subcutaneous soln RxNorm: 295891 Inject 100 Unit(s) Subcutaneous AC before meals Three times daily before meals. 07/24/19 25 025 Inactive ammonium lactate 12 % topical cream RxNorm: 800732 Apply 1 Application Topical BID 07/20/19 25 No Stop Date Active senna 8.6 mg tablet RxNorm: 463454 Take 1 Tablet(s) Oral QD 07/18/19 25 025 Inactive ezetimibe 10 mg tablet RxNorm: 744004 Take 1 Tablet(s) Oral QD 07/18/19 25 No Stop Date Active metoprolol succinate ER 200 mg tablet,extended release 24 hr RxNorm: 216989 Take 1 Tablet(s) Oral QD 06/19/19 25 No Stop Date Active pantoprazole 40 mg tablet,delayed release RxNorm: 776081 Take 1 Tablet(s) Oral QAM every morning 06/19/19 25 No Stop Date Active hydralazine 50 mg tablet RxNorm: 623916 Take 1 Tablet(s) Oral QID 06/19/19 25 No Stop Date Active carbamazepine 200 mg tablet RxNorm: 305452 Take 1 Tablet(s) Oral BID 06/19/19 25 No Stop Date Active amlodipine 10 mg tablet RxNorm: 716837 Take 1 Tablet(s) Oral QD 06/19/19 25 No Stop Date Active Eliquis 5 mg tablet RxNorm: 8063048 Take 1 Tablet(s) Oral BID 06/19/19 25 No Stop Date Active pen needle, diabetic 30 gauge x 3/16 RxNorm: Use 1 6 times per day w/insulin 06/14/19 25 026 Active pen needle, diabetic 30 gauge x 3/16 RxNorm: Use 1 needle 6 times per day w/insulin 06/14/19 25 025 Inactive nystatin 100,000 unit/gram topical powder RxNorm: 921134 Apply 1 Application Topical BID as needed abdominal/breast /groin folds 01/01/03 25 026 Active pregabalin 100 mg capsule RxNorm: 570401 Take 1 Capsule(s) Oral QAM every morning 05/22/19 025 Inactive nystatin 100,000 unit/gram topical powder RxNorm: 905554 Apply 1 Application Topical BID as needed abdominal/breast /groin folds 04/11/20 024 Inactive chlorthalidone 25 mg tablet RxNorm: 481272 Take 1 Tablet(s) Oral QAM every morning 04/06/20 No Stop Date Active pregabalin 150 mg capsule RxNorm: 704264 Take 1 Capsule(s) Oral QHS every night at bedtime 03/31/20 024 Inactive Vascepa 1 gram capsule RxNorm: 4073128 Take 2 Capsule(s) Oral BID 03/30/20 025 Active rosuvastatin 40 mg tablet RxNorm: 258303 1 TAB ORALLY EVERY EVENING (DX:CORONARY ARTERY DISEASE) 03/28/20 No Stop Date Active venlafaxine ER 75 mg capsule,extended release 24 hr RxNorm: 036590 3 CAPS (225MG) ORALLY DAILY (DX: MOOD DISORDER) 03/28/20 No Stop Date Active pregabalin 100 mg capsule RxNorm: 956418 Take 1 Capsule(s) Oral QAM every morning 03/20/20 024 Inactive cholecalciferol (vitamin D3) 1,250 mcg (50,000 unit) capsule RxNorm: 946791 Take 1 Capsule(s) Oral QW once a [...] Insulin 100 unit/mL (3 mL) subcutaneous RxNorm: 7838840 Inject 40 Unit(s) Subcutaneous BID 03/07/20 025 Inactive Please dispense one month supply. Humulin R U-500 (Concentrated) Insulin 500 unit/mL subcutaneous soln RxNorm: 530896 Inject 100 Unit(s) Subcutaneous AC before meals [...] PRN) to be use with new Accu [facility] meter 03/04/20 Inactive ok to substitute with any covered alternative test strip FreeStyle Chema 2 Sensor kit RxNorm: Use UD as directed 03/02/20 Inactive Pen Needle 30 gauge x 16 RxNorm: Pen(s) Use 1 needle as directed TID 03/02/20 Inactive nystatin 100,000 unit/gram topical powder RxNorm: 387652 Apply 1 Application Topical BID as needed [...] (Concentrated) Insulin 500 unit/mL subcutaneous soln RxNorm: 017157 Inject 100 Unit(s) Subcutaneous TID 02/17/20 24 024 Inactive Humulin R U-500 (Concentrated) Insulin 500 unit/mL subcutaneous soln RxNorm: 372165 Inject 100 Unit(s) Subcutaneous TID 02/10/20 24 024 Inactive Basaglar KwikPen U-100 Insulin 100 unit/mL (3 mL) subcutaneous RxNorm: 0641540 Inject 30 Unit(s) Subcutaneous BID 02/10/20 24 024 Inactive Please dispense one month supply. pregabalin 100 mg capsule RxNorm: 164378 Take 1 Capsule(s) Oral QAM every morning 02/07/20 24 024 Inactive isosorbide mononitrate ER 60 mg tablet,extended release 24 hr RxNorm: 137575 Take 1 Tablet(s) Oral QD 02/01/20 24 025 Active aripiprazole 15 mg tablet RxNorm: 662235 Take 1/2 Tablet(s) Oral QD 02/01/20 24 025 Active torsemide 20 mg tablet RxNorm: 193404 1 TAB ORALLY DAILY (DX: EDEMA) 01/27/20 No Stop Date Active potassium chloride ER 20 mEq tablet,extended release(part/cryst) RxNorm: 8333512 2 TABS (40MEQ) ORALLY TWICE DAILY (DX: HYPOKALEMIA) 01/27/20 24 025 Inactive cephalexin 500 mg capsule RxNorm: 102131 Take 1 Capsule(s) Oral QID 12/17/19 24 024 Inactive cephalexin 500 mg capsule RxNorm: 109067 Take 1 Capsule(s) Oral QID 12/17/19 24 024 Inactive acetaminophen 500 mg tablet RxNorm: 161426 (MAX APAP:4GM/24HR) Take 1 Tablet(s) Oral TID [...] 19800522 Take 2 Tablet(s) Oral BID 10/26/19 Inactive Artificial Tears (PF) 0.1 %-0.3 % drops in a dropperette RxNorm: 418435 Apply 1-2 Drop(s) Both eyes BID as needed 09/28/19 24 Inactive erythromycin 5 mg/gram (0.5 %) eye ointment RxNorm: 057354 Apply 1 Application Both eyes QHS every night at bedtime Instill ~1 cm ribbon into affected eye 09/28/19 24 024 Inactive Artificial Tears (PF) 0.1 %-0.3 % drops in a dropperette RxNorm: 470891 Apply 1-2 Drop(s) Both eyes BID as needed 09/28/19 24 024 Inactive erythromycin 5 mg/gram (0.5 %) eye ointment RxNorm: 228420 Apply 1 Application Both eyes QHS every night at bedtime Instill ~1 cm ribbon into affected eye 09/28/19 24 024 Inactive acetaminophen 500 mg tablet RxNorm: 834341 (MAX APAP:4GM/24HR) Take 1 Tablet(s) Oral TID as needed for pain 09/24/19 24 024 Inactive carvedilol 25 mg tablet RxNorm: 058810 Take 1 Tablet(s) Oral QD 09/08/19 24 No Stop Date Active pregabalin 100 mg capsule RxNorm: 269947 Take 1 Capsule(s) Oral QAM every morning 09/07/19 24 024 Inactive bisacodyl 10 mg rectal suppository RxNorm: 546254 Insert 1 Suppository Rectal QD as needed 07/13/19 24 No Stop Date Active polyethylene glycol 3350 17 gram/dose oral powder RxNorm: 863055 Take 17 Gram(s) Oral BID as needed mix in 4-8ox water 07/13/19 24 025 Inactive ketoconazole 2 % shampoo RxNorm: 130548 Apply 1 Application Topical UD as directed 07/13/19 24 No Stop Date Active Ozempic 1 mg/dose (4 mg/3 mL) subcutaneous pen injector RxNorm: 9808433 Inject 1 Milligram(s) Subcutaneous QW once a week 07/13/19 24 No Stop Date Active Guaifenesin AC 10 mg-100 mg/5 mL oral liquid RxNorm: 307434 Take 10 Milliliter(s) Oral Q4H every four hours as needed 07/13/19 24 No Stop Date Active hydrocortisone 2.5 % topical cream RxNorm: 291576 Apply 1 Application Topical BID as needed 07/13/19 24 No Stop Date Active rosuvastatin 20 mg sprinkle capsule RxNorm: 2270008 Take 1 Capsule(s) Oral QD 07/13/19 24 025 Inactive rosuvastatin 40 mg tablet RxNorm: 194412 Take 1 Tablet(s) Oral QPM every evening 07/13/19 24 024 Inactive ezetimibe 10 mg tablet RxNorm: 394874 Take 1 Tablet(s) Oral QD 07/13/19 24 025 Inactive aripiprazole 15 mg tablet RxNorm: 564773 Take 1/2 Tablet(s) Oral QD 07/13/19 24 024 Inactive isosorbide mononitrate ER 60 mg tablet,extended release 24 hr RxNorm: 975135 Take 1 Tablet(s) Oral QD 07/13/19 24 024 Inactive ammonium lactate 12 % topical cream RxNorm: 192068 Apply 1 Application Topical BID 07/13/19 24 025 Inactive Vascepa 1 gram capsule RxNorm: 8032398 Take 2 Capsule(s) Oral BID 07/13/19 24 024 Inactive venlafaxine ER 75 mg capsule,extended release 24 hr RxNorm: 761839 Take 3 Capsule(s) Oral QD 07/13/19 24 024 Inactive Basaglar KwikPen U-100 Insulin 100 unit/mL (3 mL) subcutaneous RxNorm: 8476715 Inject 30U SubQ twice daily 07/07/19 24 024 Inactive Please dispense one month supply. Basaglar KwikPen U-100 Insulin 100 unit/mL (3 mL) subcutaneous RxNorm: 4402371 Inject 30U SubQ twice daily 07/07/19 24 024 Inactive Please dispense one month supply. pregabalin 150 mg capsule RxNorm: 709393 Take 1 Capsule(s) Oral QHS every night at bedtime 07/05/19 24 024 Inactive pregabalin 150 mg capsule RxNorm: 225518 Take 1 Capsule(s) Oral QHS every night at bedtime 07/05/19 24 024 Inactive polyethylene glycol 3350 17 gram/dose oral powder RxNorm: 392228 Take 1 Packet Oral QD as needed (1 packet = 17g) mix with 4-8oz of liquid 06/15/19 24 024 Inactive bisacodyl 10 mg rectal suppository RxNorm: 918392 Insert one suppository per rectum once daily as needed for constipation 06/15/19 24 024 Inactive bisacodyl 10 mg rectal suppository RxNorm: 004129 Insert one suppository per rectum once daily as needed for constipation 06/15/19 24 024 Inactive pregabalin 100 mg capsule RxNorm: 743002 Take 1 Capsule(s) Oral QAM every morning 04/27/20 23 024 Inactive Levemir FlexPen 100 unit/mL (3 mL) solution subcutaneous insulin pen RxNorm: 598821 Inject 30 Unit(s) Subcutaneous BID 04/27/20 23 024 Inactive rosuvastatin 40 mg tablet RxNorm: 275811 Take 1 Tablet(s) Oral QPM every evening 04/16/20 23 024 Inactive D/C rosuvastatin 20mg venlafaxine ER 75 mg capsule,extended release 24 hr RxNorm: 350470 Take 3 Capsule(s) Oral QD 04/14/20 023 Inactive pregabalin 100 mg capsule RxNorm: 732427 Take 1 Capsule(s) Oral QAM every morning [...] strip clotrimazole 1 % topical cream RxNorm: 897578 Take apply topically to abdominal folds twice daily for 14 days 03/12/20 024 Inactive Ozempic 1 mg/dose (4 mg/3 mL) subcutaneous pen injector RxNorm: 4548426 Inject 1 Milligram(s) Subcutaneous QW once a week 03/11/20 23 023 Inactive rosuvastatin 20 mg tablet RxNorm: 092897 Take 1 Tablet(s) Oral QD 02/26/20 23 023 Inactive d/c pravastatin 80mg Ozempic 1 mg/dose (4 mg/3 mL) subcutaneous pen injector RxNorm: 5375891 Inject 1 Milligram(s) Subcutaneous QW once a week 02/20/20 23 023 Inactive pregabalin 150 mg capsule RxNorm: 088088 Take 1 Capsule(s) Oral HS at bed time 02/19/20 23 023 Inactive pregabalin 100 mg capsule RxNorm: 500839 Take 1 Capsule(s) Oral QAM every morning 02/18/20 23 023 Inactive venlafaxine ER 75 mg capsule,extended release 24 hr RxNorm: 070451 Take 3 Capsule(s) Oral QD 02/04/20 23 023 Inactive FreeStyle Chema 2 Sensor kit RxNorm: use as directed 02/04/20 23 023 Inactive FreeStyle Chema 2 Sensor kit RxNorm: use as directed 02/04/20 23 024 Inactive fluconazole 150 mg tablet RxNorm: 115282 Take 1 Tablet(s) Oral on day 3 and on day 6 02/03/20 024 Inactive venlafaxine ER 150 mg capsule,extended release 24 hr RxNorm: 860186 Take 1 Capsule(s) Oral QD 02/03/20 023 Inactive chlorthalidone 25 mg tablet RxNorm: 631390 Take 1 Tablet(s) Oral QAM every morning 02/03/20 024 Inactive acetaminophen 500 mg tablet RxNorm: 118087 1 TABLET ORALLY 3 TIMES DAILY (MAX APAP:4GM/24HR) 12/15/19 23 023 Inactive clotrimazole 1 % topical cream RxNorm: 474911 apply 1g topically to top of feet and in between toes BID 12/09/19 23 025 Inactive potassium chloride ER 20 mEq tablet,extended release RxNorm: 622244 Take 1 Tablet(s) Oral BID 12/09/19 23 024 Inactive d/c 20mEq once daily (sent from hospital) nystatin 100,000 unit/gram topical powder RxNorm: 777836 APPLY TO AFFECTED AREAS TOPICALLY 2 TIMES DAILY 11/21/19 23 023 Inactive Nystop 100,000 unit/gram topical powder RxNorm: 524810 Apply to abd folds, under breasts and L side of groin Topical BID x 14 days, then BID PRN 11/20/19 23 023 Inactive dx: yeast dermatitis [place] Ultra Strength 4 %-30 %-10 % topical cream RxNorm: 382813 Apply 1 Gram(s) Topical QID PRN to feet and legs for neuropathic pain 11/11/19 23 024 Inactive clotrimazole 1 % topical cream RxNorm: 676252 Apply 1/2 Gram(s) Topical BID Apply to affected areas of groin, periarea, and abdominal topically 2 times daily 11/10/19 23 023 Inactive hydrocortisone 2.5 % topical cream RxNorm: 541950 Apply 1/2 Gram(s) Topical BID as needed 11/10/19 23 024 Inactive Levemir FlexPen 100 unit/mL (3 mL) solution subcutaneous insulin pen RxNorm: 202909 Inject 30 Unit(s) Subcutaneous BID 10/07/19 23 023 Inactive Humulin R U-500 (Concentrated) Insulin 500 unit/mL subcutaneous soln RxNorm: 647205 Inject 100 Unit(s) Subcutaneous TID 10/07/19 23 024 Inactive Ozempic 0.25 mg or 0.5 mg (2 mg/3 mL) subcutaneous pen injector RxNorm: 6394378 Inject 1/2 Milligram(s) Subcutaneous QW once a week 10/07/19 024 Inactive aripiprazole 15 mg tablet RxNorm: 169657 1/2 TAB (7.5MG) ORALLY DAILY (DX:MAJOR DEPRESSIVE DISORDER) 09/23/19 023 Inactive Accu-Chek Guide test strips RxNorm: Use 1 Test Strip QID 09/15/19 23 023 Inactive ok to substitute with any covered alternative test strip Lancets,Thin 28 gauge RxNorm: Use 1 as directed QID 09/15/19 23 023 Inactive torsemide 20 mg tablet RxNorm: 068631 Take 1 Tablet(s) Oral BID 09/09/19 024 Inactive d/c once daily dosing carvedilol 25 mg tablet RxNorm: 110057 Take 1 Tablet(s) Oral QD 08/25/19 024 Inactive pregabalin 150 mg capsule RxNorm: 680443 1 Capsule(s) Oral HS at bed time 08/18/19 023 Inactive pregabalin 100 mg capsule RxNorm: 166414 1 Capsule(s) Oral QAM every morning 08/18/19 023 Inactive carvedilol 25 mg tablet RxNorm: 976748 1 Tablet(s) Oral QD 07/28/19 23 023 Inactive lisinopril 20 mg tablet RxNorm: 886939 Give 1 Tablet(s) Oral QD 07/28/19 23 023 Inactive Lyrica 150 mg capsule RxNorm: 816961 Take 1 Capsule(s) Oral QHS every night at bedtime 07/19/19 23 023 Inactive d/c 100mg dose Diflucan 150 mg tablet RxNorm: 474431 Take 1 Tablet(s) Oral QD repeat on day 3 and 6 07/19/19 23 023 Inactive pregabalin 100 mg capsule RxNorm: 718180 Take 1 Capsule(s) Oral QAM every morning 07/19/19 23 023 Inactive gatifloxacin 0.5 % eye drops RxNorm: 438307 Instill 1 Drop(s) as directed TID Instill 1 drop in to affected eye(s) starting 1 day prior to surgery and continue until gone (do not exceed 4 weeks). 07/13/19 23 023 Inactive carvedilol 25 mg tablet RxNorm: 182738 2 Tablet(s) Oral BID 07/13/19 23 023 Inactive Humulin R Regular U-100 Insulin 100 unit/mL injection solution RxNorm: 728648 85 Unit(s) Injection TID 07/13/19 23 023 Inactive ketorolac 0.5 % eye drops RxNorm: 207820 Instill 1 Drop(s) as directed QID Instill 1 drop into affected eye(s) 4 times daily starting 1 day prior to surgery and continue until gone (do not exceed 4 weeks). 07/13/19 23 023 Inactive Diflucan 150 mg tablet RxNorm: 847248 Take 1 Tablet(s) Oral QD repeat on day 3 and 6 06/30/19 23 023 Inactive Accu-Chek Guide test strips RxNorm: Use 1 Test Strip QID Use 1 test strip to monitor blood glucose 4 times daily and as needed. Dx:E11.42. 06/23/19 23 023 Inactive ok to substitute with any covered alternative test strip dextromethorphan-gu aifenesin 10 mg-100 mg/5 mL oral liquid RxNorm: 440106 Take 10 Milliliter(s) Oral every 4 hours as needed for cough 06/19/19 23 023 Inactive dextromethorphan-gu aifenesin 10 mg-100 mg/5 mL oral liquid RxNorm: 760148 Take 10 Milliliter(s) Oral every 4 hours as needed for cough 06/19/19 023 Inactive Lyrica 150 mg capsule RxNorm: 173724 Take 1 Capsule(s) Oral QHS every night at bedtime 06/18/19 023 Inactive d/c 100mg dose aripiprazole 15 mg tablet RxNorm: 940604 /2 TAB (7.5MG) ORALLY DAILY (DX:MAJOR DEPRESSIVE DISORDER) 06/05/19 023 Inactive pregabalin 100 mg capsule RxNorm: 505702 1 Capsule(s) Oral QAM every morning 06/02/19 023 Inactive Banophen 50 mg capsule RxNorm: 2990526 Take 1 Capsule(s) Oral Q6H every 6 hours as needed 05/19/19 No Stop Date Active Novolog Flexpen U-100 Insulin aspart 100 unit/mL (3 mL) subcutaneous RxNorm: 8785211 Inject 10 Unit(s) Subcutaneous QHS every night at bedtime with nighttime snack 04/08/20 022 Inactive Novolog Flexpen U-100 Insulin aspart 100 unit/mL (3 mL) subcutaneous RxNorm: 1938038 Inject 42 Unit(s) Subcutaneous TID in addition to sliding scale 04/08/20 022 Inactive d/c 36u albuterol sulfate HFA 90 mcg/actuation aerosol inhaler RxNorm: 7328829 Take 2 Puff(s) Inhalation Q4H every four hours as needed as needed for SOB, cough, or wheezing 04/07/20 030 Active Banophen 50 mg capsule RxNorm: 3377939 Take 1 Capsule(s) Oral Q6H every 6 hours as needed 04/06/20 023 Inactive diphenhydramine 50 mg tablet RxNorm: 0343519 Take 1 Tablet(s) Oral Q6H every 6 hours as needed 04/06/20 022 Inactive diphenhydramine 50 mg tablet RxNorm: 4979405 1 Tablet(s) Oral Q6H every 6 hours as needed 04/06/20 022 Inactive Abilify 15 mg tablet RxNorm: 692640 1/2 Tablet(s) Oral QD 03/10/20 22 023 Inactive Shingrix (PF) 50 mcg/0.5 mL intramuscular suspension, kit RxNorm: 0240566 Administer 1/2 Milliliter(s) Intramuscular QD one time shingrix step 2 ( step 1 given 11/04/21) WITH needle - Nursing please administer upon arrival and once administered post a bridge message with date of administration, transportation planning technician, expiration date, and lot# so we can update [facility] 02/18/20 22 022 Inactive dispense with needle Shingrix (PF) 50 mcg/0.5 mL intramuscular suspension, kit RxNorm: 7520079 Administer 1/2 Milliliter(s) Intramuscular QD one time shingrix step 2 ( step 1 given 11/04/21) WITH needle - Nursing please administer upon arrival and once administered post a bridge message with date of administration, transportation planning technician, expiration date, and lot# so we can update [facility] 02/18/20 22 022 Inactive dispense with needle polyethylene glycol 3350 17 gram/dose oral powder RxNorm: 396231 Take 17=1 capful Gram(s) Oral QD mix with 4-8oz of liquid 01/08/20 22 025 Inactive take this in addition to BID prn order Lyrica 100 mg capsule RxNorm: 507685 Take 1 Capsule(s) Oral QAM every morning 01/08/20 22 022 Inactive d/c 50mg dose acetaminophen 500 mg tablet RxNorm: 153606 Take 1 Tablet(s) Oral TID 01/08/20 22 022 Inactive d/c PRN order Lyrica 150 mg capsule RxNorm: 604623 Take 1 Capsule(s) Oral QHS every night at bedtime 01/08/20 22 023 Inactive d/c 100mg dose Abilify 5 mg tablet RxNorm: 260259 Take 1 Tablet(s) Oral QD take 1 tab po QD #30 refill 5 dx: MDD 12/12/19 22 022 Inactive Abilify 5 mg tablet RxNorm: 795248 Take 1 Tablet(s) Oral QD take 1 tab po QD #30 refill 5 dx: MDD 12/12/19 22 022 Inactive Novolog Flexpen U-100 Insulin aspart 100 unit/mL (3 mL) subcutaneous RxNorm: 0743329 Inject 42 Unit(s) Subcutaneous TID in addition to sliding scale 12/10/19 22 022 Inactive d/c 36u chlorthalidone 25 mg tablet RxNorm: 799135 Take 1 Tablet(s) Oral QAM every morning 12/10/19 22 023 Inactive pregabalin 50 mg capsule RxNorm: 791650 Take 1 Capsule(s) Oral QAM every morning 11/12/19 22 022 Inactive tetanus-diphtheria toxoids-Td 2 Lf unit-2 Lf unit/0.5 mL IM suspension RxNorm: 139 Take 0.5 Miscellaneous Intramuscular 11/12/19 22 022 Inactive need tdap - nursing to administer upon arrival pregabalin 50 mg capsule RxNorm: 782358 Take 1 Capsule(s) Oral QAM every morning 10/16/19 022 Inactive pregabalin 50 mg capsule RxNorm: 803466 Take 1 Capsule(s) Oral QAM every morning 10/16/19 22 022 Inactive pregabalin 50 mg capsule RxNorm: 655549 1 Capsule(s) Oral QAM every morning 10/15/19 22 022 Inactive Shingrix (PF) 50 mcg/0.5 mL intramuscular suspension, kit RxNorm: 4538489 Administer 1/2 Milliliter(s) Intramuscular one time Nursing please administer upon arrival and once administered post a bridge message with date of administration, transportation planning 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 10/09/19 22 022 Inactive shingrix step 1 Shingrix (PF) 50 mcg/0.5 mL intramuscular suspension, kit RxNorm: 0068383 Administer 1/2 Milliliter(s) Intramuscular one time Nursing please administer upon arrival and once administered post a bridge message with date of administration, transportation planning technician, expiration date, and lot# so we [...] aspart 100 unit/mL (3 mL) subcutaneous RxNorm: 8487007 Inject 10 Unit(s) Subcutaneous QHS every night at bedtime with nighttime snack 10/08/19 22 Inactive Shingrix (PF) 50 mcg/0.5 mL intramuscular suspension, kit RxNorm: 7344550 ADMINISTER 2-DOSE SERIES PER CDC GUIDELINES 10/08/19 22 Active Shingrix (PF) 50 mcg/0.5 mL intramuscular suspension, kit RxNorm: 3351988 ADMINISTER 2-DOSE SERIES PER CDC GUIDELINES 10/08/19 22 Inactive Novolog Flexpen U-100 Insulin aspart 100 unit/mL (3 mL) subcutaneous RxNorm: 5395126 Inject 36 Unit(s) Subcutaneous TID in addition to sliding scale 10/08/19 22 Inactive cholecalciferol (vitamin D3) 1,250 mcg (50,000 unit) capsule RxNorm: 410806 Take 1 Capsule(s) Oral QW once a week 10/08/19 024 Inactive Novofine Autocover 30 gauge x 1/3 needle RxNorm: Use 1 Miscellaneous UD as directed Use 1 needle as directed to administer insulin 5 times a day Dx:E11.42. 10/03/19 22 Inactive ok to substitute with any covered alternative pen needle benzoyl peroxide 10 % topical cleanser RxNorm: 221218 Apply 1 Application Topical QD apply to face, wash rinse and dry once daily (may change to QOD if drying) 08/19/19 22 022 Inactive (%covered by insurance) #60ml refill 11 dx: acne benzoyl peroxide 10 % topical cleanser RxNorm: 037248 Apply 1 Application Topical QD apply to face, wash rinse and dry once daily (may change to QOD if drying) 08/19/19 22 022 Inactive (%covered by insurance) #60ml refill 11 dx: acne benzoyl peroxide 10 % topical cleanser RxNorm: 136974 Apply 1 Application Topical QD apply to face, wash rinse and dry once daily (may change to QOD if drying) 08/19/19 22 022 Inactive (%covered by insurance) #60ml refill 11 dx: acne Lyrica 50 mg capsule RxNorm: 478667 Take 1 Capsule(s) Oral QAM every morning Take 1 capsule by mouth once daily 08/19/19 22 022 Inactive benzoyl peroxide 10 % topical cleanser RxNorm: 778922 Apply 1 Application Topical QD apply to face, wash rinse and dry once daily (may change to QOD if drying) 08/19/19 22 022 Inactive (%covered by insurance) #60ml refill 11 dx: acne Lyrica 100 mg capsule RxNorm: 448612 Take 1 Capsule(s) Oral QHS every night at bedtime Take 1 capsule by mouth once daily at bedtime 08/19/19 22 Inactive Lyrica 100 mg capsule RxNorm: 121709 Take 1 Capsule(s) Oral QHS every night at bedtime Take 1 capsule by mouth once daily at bedtime 08/16/19 22 Inactive Lyrica 50 mg capsule RxNorm: 938057 Take 1 Capsule(s) Oral QAM every morning Take 1 capsule by mouth once daily 08/16/19 22 Inactive Levemir FlexTouch U-100 Insulin 100 unit/mL (3 mL) subcutaneous pen RxNorm: 388603 Inject 86 Unit(s) Subcutaneous BID 08/05/19 22 Inactive d/c 83units BID Lyrica 100 mg capsule RxNorm: 520528 Take 1 Capsule(s) Oral QHS every night at bedtime Take 1 capsule by mouth once daily at bedtime 07/14/19 22 022 Inactive Lyrica 50 mg capsule RxNorm: 524082 Take 1 Capsule(s) Oral QAM every morning Take 1 capsule by mouth once daily 07/14/19 Inactive Levemir FlexTouch U-100 Insulin 100 unit/mL (3 mL) subcutaneous pen RxNorm: 514667 Inject 83 Unit(s) Subcutaneous BID 07/08/19 22 [...] test strip hydralazine 50 mg tablet RxNorm: 680281 Take 1 Tablet(s) Oral QID 05/05/20 21 022 Inactive venlafaxine ER 225 mg tablet,extended release 24 hr RxNorm: 980660 Take 1 Tablet(s) Oral QD 05/05/20 21 021 Inactive venlafaxine ER 225 mg tablet,extended release 24 hr RxNorm: 975965 Take 1 Tablet(s) Oral QD 05/05/20 022 Inactive isosorbide mononitrate ER 30 mg tablet,extended release 24 hr RxNorm: 464358 Take 1 Tablet(s) Oral QD 05/05/20 024 Inactive hydralazine 50 mg tablet RxNorm: 497213 Take 1 Tablet(s) Oral QID 05/05/20 21 021 Inactive aspirin 81 mg tablet,delayed release RxNorm: 772996 Take 1 Tablet(s) Oral QD 03/31/20 022 Inactive Vitamin D2 1,250 mcg (50,000 unit) capsule RxNorm: 6013560 Take 1 Capsule(s) Oral QW once a week x 12 weeks 03/31/20 022 Inactive Vitamin D2 1,250 mcg (50,000 unit) capsule RxNorm: 0091801 Take 1 Capsule(s) Oral QW once a week 03/31/20 021 Inactive Zetia 10 mg tablet RxNorm: 159020 Take 1 Tablet(s) Oral QD 03/31/20 024 Inactive Zetia 10 mg tablet RxNorm: 773850 Take 1 Tablet(s) Oral QD 03/31/20 021 Inactive hydralazine 25 mg tablet RxNorm: 932452 Take 1 Tablet(s) Oral QID 03/31/20 21 021 Inactive hydralazine 25 mg tablet RxNorm: 701097 Take 1 Tablet(s) Oral QID 03/31/20 021 Inactive hydralazine 10 mg tablet RxNorm: 978523 Take 1 Tablet(s) Oral QID 03/03/20 021 Inactive cephalexin 500 mg tablet RxNorm: 366115 Take 1 Tablet(s) Oral QID 02/27/20 021 Inactive cephalexin 500 mg tablet RxNorm: 116663 Take 1 Tablet(s) Oral QID 02/27/20 021 Inactive lisinopril 40 mg tablet RxNorm: 024647 Take 1 Tablet(s) Oral QD 02/11/20 023 Inactive Eliquis 5 mg tablet RxNorm: 0218434 Take 1 Tablet(s) Oral BID 01/05/20 21 025 Inactive Eliquis 5 mg tablet RxNorm: 1009258 Take 2 Tablet(s) Oral QD 01/01/20 21 021 Inactive Lyrica 50 mg capsule RxNorm: 723734 Take 1 Capsule(s) Oral QAM every morning 12/24/19 21 021 Inactive Lyrica 100 mg capsule RxNorm: 127386 Take 1 Capsule(s) Oral QHS every night at bedtime 12/24/19 021 Inactive clotrimazole 1 % topical cream RxNorm: 384489 Apply to right foot and toes Topical BID 12/04/19 21 023 Inactive metoprolol succinate ER 200 mg tablet,extended release 24 hr RxNorm: 244617 Take 1 Tablet(s) Oral QD 12/04/19 023 Inactive ciprofloxacin 500 mg tablet RxNorm: 967080 Take 1 Tablet(s) Oral QD 11/30/19 21 021 Inactive DX ofloxacin otic drops Accu-Chek Guide test strips RxNorm: USE 1 TO CHECK GLUCOSE 4 TIMES DAILY AND NEEDED 11/15/19 21 023 Inactive Blood Glucose Test strips RxNorm: Use 1 Test Strip QID at PRN 11/05/19 21 023 Inactive E11.42 lisinopril 30 mg tablet RxNorm: 280000 Take 1 Tablet(s) Oral QD 10/30/19 021 Inactive lisinopril 20 mg tablet RxNorm: 611731 Take 1 Tablet(s) Oral QD 10/23/19 21 021 Inactive lisinopril 20 mg tablet RxNorm: 379518 Take 1 Tablet(s) Oral QD 10/23/19 21 021 Inactive lisinopril 10 mg tablet RxNorm: 882643 Take 1 Tablet(s) Oral QD 10/02/19 21 021 Inactive icosapent ethyl 1 gram capsule RxNorm: 9168405 Take 2 Capsule(s) (2 gm) Oral BID with meals 09/12/19 024 Inactive Okay to dispense one 2gm tab if you have that available. icosapent ethyl 1 gram capsule RxNorm: 6949406 Take 2 Capsule(s) Oral BID 09/12/19 21 021 Inactive Okay to dispense one 2gm tab if you have that available. amlodipine 10 mg tablet RxNorm: 262926 Take 1 Tablet(s) Oral QD 09/04/19 21 021 Inactive aspirin 81 mg tablet,delayed release RxNorm: 263199 Take 1 Tablet(s) Oral QD 09/04/19 21 021 Inactive Levemir FlexTouch U-100 Insulin 100 unit/mL (3 mL) subcutaneous pen RxNorm: 337745 Inject 150 Unit(s) Subcutaneous BID 09/04/19 21 022 Inactive venlafaxine ER 150 mg tablet,extended release 24 hr RxNorm: 273185 Take 1 Tablet(s) Oral QD 09/04/19 21 021 Inactive clotrimazole-betame thasone 1 %-0.05 % topical cream RxNorm: 806840 Apply to rash on red area on left abdomen/chest Topical BID 08/10/19 21 021 Inactive amlodipine 5 mg tablet RxNorm: 700296 Take 1 Tablet(s) Oral QD 07/31/19 21 021 Inactive cephalexin 500 mg tablet RxNorm: 113894 Take 1 Tablet(s) Oral BID BID - Twice Daily 07/31/19 21 021 Inactive Start 08/01/20 pantoprazole 40 mg tablet,delayed release RxNorm: 765018 Take 1 Tablet(s) Oral QAM every morning 07/08/19 21 025 Inactive clopidogrel 75 mg tablet RxNorm: 090930 Take 1 Tablet(s) Oral QD 07/08/19 21 021 Inactive Blood Glucose Test strips RxNorm: Use 1 Test Strip QID at PRN 07/08/19 21 021 Inactive E11.42 senna 8.6 mg tablet RxNorm: 537232 Take 1 Tablet(s) Oral QD 07/08/19 21 025 Inactive Novolog Flexpen U-100 Insulin aspart 100 unit/mL (3 mL) subcutaneous RxNorm: 2292340 Administer per sliding scale Milliliter(s) Subcutaneous TID 151-200: 10 u; 201-250: 20 u; 251-300: 30 u; 301-350: 40 u; 351-400: 50 u. 07/08/19 21 022 Inactive lisinopril 5 mg tablet RxNorm: 341010 Take 1 Tablet(s) Oral QD 07/08/19 21 021 Inactive Novolog Flexpen U-100 Insulin aspart 100 unit/mL (3 mL) subcutaneous RxNorm: 5635931 Inject 85 Unit(s) Subcutaneous TID 07/08/19 022 Inactive pravastatin 80 mg tablet RxNorm: 014392 Take 1 Tablet(s) Oral QHS every night at bedtime 07/08/19 21 023 Inactive clotrimazole 1 % topical cream RxNorm: 754012 Apply to bilateral groin areas Topical BID 07/08/19 21 022 Inactive metoprolol succinate ER 200 mg tablet,extended release 24 hr RxNorm: 304472 Take 1 Tablet(s) Oral QD 07/08/19 21 021 Inactive Vitamin D3 25 mcg (1,000 unit) tablet RxNorm: 767751 Take 1 Tablet(s) Oral QD 07/08/19 021 Inactive isosorbide dinitrate 30 mg tablet RxNorm: 412756 Take 1 Tablet(s) Oral QD 07/08/19 21 021 Inactive carbamazepine 200 mg tablet RxNorm: 766886 Take 1 Tablet(s) Oral BID 07/08/19 21 025 Inactive Levemir FlexTouch U-100 Insulin 100 unit/mL (3 mL) subcutaneous pen RxNorm: 290217 Inject 140 Unit(s) Subcutaneous BID 07/08/19 21 021 Inactive torsemide 20 mg tablet RxNorm: 485639 Take 1 Tablet(s) Oral QD 07/08/19 023 Inactive venlafaxine 75 mg tablet RxNorm: 862855 Take 1 Tablet(s) Oral QD 07/08/19 21 021 Inactive acetaminophen 500 mg tablet RxNorm: 438267 Take 1 Tablet(s) Oral TID as needed for headache 06/18/19 21 021 Inactive acetaminophen 500 mg tablet RxNorm: 298360 Take 1 Tablet(s) Oral TID as needed for headache 06/18/19 21 021 Inactive Lyrica 100 mg capsule RxNorm: 815371 Take 1 Capsule(s) Oral QHS every night at bedtime 06/11/19 21 021 Inactive Lyrica 50 mg capsule RxNorm: 681935 Take 1 Capsule(s) Oral QAM every morning 06/10/19 21 021 Inactive hydrocortisone 2.5 % topical cream RxNorm: 060067 Apply to bilateral groin creases Topical BID 05/15/20 20 021 Inactive clotrimazole 1 % topical cream RxNorm: 257509 Apply to bilateral groin areas Topical BID 05/15/20 20 021 Inactive Lyrica 50 mg capsule RxNorm: 577591 Take 1 Capsule(s) Oral QAM every morning 05/14/20 20 020 Inactive Lyrica 100 mg capsule RxNorm: 581608 Take 1 Capsule(s) Oral QHS every night [...] Inactive Nystop 100,000 unit/gram topical powder RxNorm: 551299 Apply to abd folds, under breasts and L side of groin Topical BID x 14 days, then BID PRN 04/08/20 20 Inactive dx: yeast dermatitis Lyrica 100 mg capsule RxNorm: 588682 Take 1 Capsule(s) Oral QHS every night at bedtime 03/13/20 20 Inactive Lyrica 50 mg capsule RxNorm: 345073 Take 1 Capsule(s) Oral QAM every morning 03/13/20 20 Inactive ketoconazole 2 % shampoo RxNorm: 878395 Apply Topical two times a week with showers 03/11/20 20 Inactive cholecalciferol (vitamin D3) 50 mcg (2,000 unit) tablet RxNorm: 636420 Take 1 Tablet(s) Oral QD 03/11/20 20 021 Inactive Zetia 10 mg tablet RxNorm: 310050 Take 1 Tablet(s) Oral QD 03/07/20 20 021 Inactive Zetia 10 mg tablet RxNorm: 807776 Take 1 Tablet(s) Oral QD 03/07/20 20 Inactive Lyrica 50 mg capsule RxNorm: 878339 Take 1 Capsule(s) Oral QAM every morning 02/15/20 20 Inactive Lyrica 100 mg capsule RxNorm: 273127 Take 1 Capsule(s) Oral QHS every night at bedtime 02/15/20 20 Inactive Lyrica 100 mg capsule RxNorm: 486199 Take 1 Capsule(s) Oral QHS every night at bedtime 02/15/20 20 Inactive Lyrica 50 mg capsule RxNorm: 731302 Take 1 Capsule(s) Oral QAM every morning 02/15/20 20 Inactive loperamide 2 mg capsule RxNorm: 578840 Take 1 Capsule(s) Oral QID as needed 09/06/19 025 Inactive venlafaxine ER 75 mg capsule,extended release 24 hr RxNorm: 135596 Take 3 Capsule(s) Oral QD 06/12/19 22 023 Inactive polyethylene glycol 3350 17 gram/dose oral powder RxNorm: 303173 Take 17=1 capful Gram(s) Oral BID as needed mix with 4-8oz of liquid 06/12/19 22 024 Inactive icosapent ethyl 1 gram capsule RxNorm: 6716637 Take 2 Capsule(s) (2 gm) Oral BID with meals 10/07/19 23 023 Inactive Okay to dispense one 2gm tab if you have that available. Levemir FlexTouch U-100 Insulin 100 unit/mL (3 mL) subcutaneous pen RxNorm: 538629 Inject 80 Unit(s) Subcutaneous BID 07/14/19 23 023 Inactive metoprolol succinate ER 200 mg tablet,extended release 24 hr RxNorm: 429631 Take 1 Tablet(s) Oral QD 08/12/19 23 025 Inactive hydralazine 50 mg tablet RxNorm: 079894 Take 1 Tablet(s) Oral QID 08/12/19 23 025 Inactive Soft Touch Lancets RxNorm: miscellaneous 03/04/20 24 025 Inactive Novolog Flexpen U-100 Insulin aspart 100 unit/mL (3 mL) subcutaneous RxNorm: 9950724 Insert 30 Unit(s) Subcutaneous TID with meals [...] Planned Activity Notes Codes Status Date Referral: [facility] Rad[facility]/Imaging W[facility]el: 2000 [id number] [place]erral[place]oint[place] Dyvubzjkr33/06/2025Referral: [facility]/Endocrinology WPtel: [address] [facility] [id number] USReferralNo Records [id number]/24/2025Referral: [facility] WPtel: [address], [address] [id number] [place]ReferralRecords [id number]/08/2023Referral: [facility] WPtel: [address] [id number]/12/2022Referral: General CardiologyReferralCompleted 1Referral: General PsychologistReferralClosedReferral: General PsychiatristReferralPatient/Family [...] Sister Jyotsna involved in his care cell# [phone] Guardian: Don (tapan met in person 09/01/21), [...] Matilde Pérez PA-C. Endocrinology appointment 05.26.2024 with eJssa Webster MD at [facility]. Start Pioglitazone 15 mg QD. Stop Basaglar insulin. Increase Ozempic 2 mg once wkly. Continue Humalin R U-500 100 units with meals TID. FOLLOW UP 2 MONTHS. If BG >400 add 50 units to next scheduled dose of Humalin R U 500 insulin 06/12/2024
--- OUTSIDE RECORDS SUMMARY | 2024-10-19 18:46 | XMS_ITS | CCD ---
Author Name Cecilio Durham Address [address] [facility] [address] [place] [address] Phone Organization [facility] Phone Care Team Providers Care Intelligence Senior Sergeant Name Role Phone Harrison Durham Primary Care Provider Leona vailable Unavailable Chronic Care Management Unavaila ble Summary Purpose DataExchange Insurance Providers Payer name Policy type / Coverage type Covered constitution party ID Effective Begin Date Effective End Date [place] Part B [id number] Unknown Unknown [place] B [id number] Unknown Unknown Family history Sister Brittany Suggs [...] on file 07/11/[address]: [id number] Never smoker 01/16 Sexually Active? Unknown No [...] Nursing Home 09/03/[address]: 025011136 No Alcohol Consum ption 09/02/2020 Allergies, Adverse Reactions, Alerts Substance Reaction Codes Entered Date Inactivated Date Status * NO KNOWN FOOD ALLERGIES Dmmkhlx1907/13/2023No Inactive DateActiveLISINOPRILRxNorm: 1146604 Inactive DateActiveMetformin CZpBnrhips27/28/2020 Inactive DateActive* NO KNOWN ENVIRONMENTAL KSSRXEWQWXzsuiys68/27/2024 Inactive DateActive Problems Condition Codes Effective Dates [...] planning - to document end of life rhkqywvkfqwNhuqfgn34/24/2024ctiveAmputated toe of right footICD-10: S98.131A ICD-9: 895.009ctiveAnnual [...] E55.9 ICD-9: 268.909ctiveCallus of heelICD-10: L84 ICD-9: 07913/esolvedGout due to renal impairmentICD-10: M10.30 ICD-9: 274.1005esolvedHyperhidrosis of palmsICD-10: L74.512 ICD-9: 705.21010/12/2023esolvedHyperlipidemia, unspecifiedICD-10: E78.5 ICD-9: 272.405/esolvedOther intermodal truck driver (current) drug therapyICD-10: Z79.899 ICD-9: V58.6905esolvedPain of [...] tagICD-10: L91.8 ICD-9: 701.904esolvedCoronary artery disease involving knik coronary artery of knik heart, angina presence unspecifiedICD-10: I25.10 ICD-9: 414.0102/ctiveInappropriate sexual behaviorICD-10: Z72.89 ICD-9: 312.8910/ctivePre-op evaluationICD-10: Z01.818 ICD-9: V72.8403/28/2023ActiveSecondary hypertensionICD-10: I15.9 ICD-9: 405.9903ctiveDepressionICD-10: F32.9 ICD-9: 01256esolvedDVT (deep venous thrombosis)ICD-10: I82.409 ICD-9: 453.4009esolvedEncounter for [...] to other viral communicable diseasesICD-10: Z20.828 ICD-9: V01.79027045MorbaahuCclgjnvqJygmbuy28/28/2020ActiveDiabetes mellitus Type 4Xitwdfq20/28/2020ActiveAnemia in chronic kidney diseaseICD-10: D63.1 02/12/2020ResolvedHyperlipidemia, unspecifiedICD-10: E78.Resolved Medications Medication Codes Instructions Start Date Stop Date Status Fill Instructions Humulin R U-500 (Concentrated) Insulin 500 unit/mL subcutaneous soln RxNorm: 389780 Inject 100 Unit(s) Subcutaneous AC before meals Three times daily before meals. 07/24/19 25 025 Inactive ammonium lactate 12 % topical cream RxNorm: 504558 Apply 1 Application Topical BID 07/20/19 25 No Stop Date Active senna 8.6 mg tablet RxNorm: 304000 Take 1 Tablet(s) Oral QD 07/18/19 25 025 Inactive ezetimibe 10 mg tablet RxNorm: 059839 Take 1 Tablet(s) Oral QD 07/18/19 25 No Stop Date Active metoprolol succinate ER 200 mg tablet,extended release 24 hr RxNorm: 902760 Take 1 Tablet(s) Oral QD 06/19/19 25 No Stop Date Active pantoprazole 40 mg tablet,delayed release RxNorm: 008469 Take 1 Tablet(s) Oral QAM every morning 06/19/19 25 No Stop Date Active hydralazine 50 mg tablet RxNorm: 086637 Take 1 Tablet(s) Oral QID 06/19/19 25 No Stop Date Active carbamazepine 200 mg tablet RxNorm: 878867 Take 1 Tablet(s) Oral BID 06/19/19 25 No Stop Date Active amlodipine 10 mg tablet RxNorm: 105403 Take 1 Tablet(s) Oral QD 06/19/19 25 No Stop Date Active Eliquis 5 mg tablet RxNorm: 7053160 Take 1 Tablet(s) Oral BID 06/19/19 25 No Stop Date Active pen needle, diabetic 30 gauge x 3/16 RxNorm: Use 1 6 times per day w/insulin 06/14/19 25 026 Active pen needle, diabetic 30 gauge x 3/16 RxNorm: Use 1 needle 6 times per day w/insulin 06/14/19 25 025 Inactive nystatin 100,000 unit/gram topical powder RxNorm: 930870 Apply 1 Application Topical BID as needed abdominal/breast /groin folds 05/24/19 25 026 Active pregabalin 100 mg capsule RxNorm: 117289 Take 1 Capsule(s) Oral QAM every morning 05/22/19 25 025 Inactive nystatin 100,000 unit/gram topical powder RxNorm: 534264 Apply 1 Application Topical BID as needed abdominal/breast /groin folds 04/11/20 Inactive chlorthalidone 25 mg tablet RxNorm: 813739 Take 1 Tablet(s) Oral QAM every morning 04/06/20 No Stop Date Active pregabalin 150 mg capsule RxNorm: 855729 Take 1 Capsule(s) Oral QHS every night at bedtime 03/31/20 024 Inactive Vascepa 1 gram capsule RxNorm: 4750331 Take 2 Capsule(s) Oral BID 03/30/20 025 Active rosuvastatin 40 mg tablet RxNorm: 514774 1 TAB ORALLY EVERY EVENING (DX:CORONARY ARTERY DISEASE) 03/28/20 No Stop Date Active venlafaxine ER 75 mg capsule,extended release 24 hr RxNorm: 187033 3 CAPS (225MG) ORALLY DAILY (DX: MOOD DISORDER) 03/28/20 No Stop Date Active pregabalin 100 mg capsule RxNorm: 916855 Take 1 Capsule(s) Oral QAM every morning 03/20/20 Inactive cholecalciferol (vitamin D3) 1,250 mcg (50,000 unit) capsule RxNorm: 657987 Take 1 Capsule(s) Oral QW once a [...] Insulin 100 unit/mL (3 mL) subcutaneous RxNorm: 0392697 Inject 40 Unit(s) Subcutaneous BID 03/07/20 025 Inactive Please dispense one month supply. Humulin R U-500 (Concentrated) Insulin 500 unit/mL subcutaneous soln RxNorm: 512319 Inject 100 Unit(s) Subcutaneous AC before meals [...] PRN) to be use with new Accu Goldvein meter 03/04/20 Inactive ok to substitute with any covered alternative test strip FreeStyle Chema 2 Sensor kit RxNorm: Use UD as directed 03/02/20 Inactive Pen Needle 30 gauge x 09/29 RxNorm: Pen(s) Use 1 needle as directed TID 03/02/20 Inactive nystatin 100,000 unit/gram topical powder RxNorm: 391226 Apply 1 Application Topical BID as needed [...] (Concentrated) Insulin 500 unit/mL subcutaneous soln RxNorm: 672190 Inject 100 Unit(s) Subcutaneous TID 02/17/20 24 024 Inactive Humulin R U-500 (Concentrated) Insulin 500 unit/mL subcutaneous soln RxNorm: 510148 Inject 100 Unit(s) Subcutaneous TID 02/10/20 24 024 Inactive Tusharaglar ZaPen U-100 Insulin 100 unit/mL (3 mL) subcutaneous RxNorm: 3037127 Inject 30 Unit(s) Subcutaneous BID 02/10/20 24 024 Inactive Please dispense one month supply. pregabalin 100 mg capsule RxNorm: 773154 Take 1 Capsule(s) Oral QAM every morning 02/07/20 24 024 Inactive isosorbide mononitrate ER 60 mg tablet,extended release 24 hr RxNorm: 804814 Take 1 Tablet(s) Oral QD 02/01/20 24 025 Active aripiprazole 15 mg tablet RxNorm: 222699 Take 1/2 Tablet(s) Oral QD 02/01/20 24 025 Active torsemide 20 mg tablet RxNorm: 770429 1 TAB ORALLY DAILY (DX: EDEMA) 01/27/20 No Stop Date Active potassium chloride ER 20 mEq tablet,extended release(part/cryst) RxNorm: 8135785 2 TABS (40MEQ) ORALLY TWICE DAILY (DX: HYPOKALEMIA) 01/27/20 025 Inactive cephalexin 500 mg capsule RxNorm: 031267 Take 1 Capsule(s) Oral QID 12/17/19 24 024 Inactive cephalexin 500 mg capsule RxNorm: 824603 Take 1 Capsule(s) Oral QID 12/17/19 24 024 Inactive acetaminophen 500 mg tablet RxNorm: 504673 (MAX APAP:4GM/24HR) Take 1 Tablet(s) Oral TID as needed for pain 12/10/19 24 024 Inactive torsemide 20 mg tablet RxNorm: 288615 Take 1 Tablet(s) Oral QD 10/26/19 24 [...] %-0.3 % drops in a dropperette RxNorm: 730504 Apply 1-2 Drop(s) Both eyes BID as needed 09/28/19 24 Inactive erythromycin 5 mg/gram (0.5 %) eye ointment RxNorm: 980223 Apply 1 Application Both eyes QHS every night at bedtime Instill ~1 cm ribbon into affected eye 09/28/19 24 024 Inactive Artificial Tears (PF) 0.1 %-0.3 % drops in a dropperette RxNorm: 498166 Apply 1-2 Drop(s) Both eyes BID as needed 09/28/19 24 024 Inactive erythromycin 5 mg/gram (0.5 %) eye ointment RxNorm: 707564 Apply 1 Application Both eyes QHS every night at bedtime Instill ~1 cm ribbon into affected eye 09/28/19 24 024 Inactive acetaminophen 500 mg tablet RxNorm: 728042 (MAX APAP:4GM/24HR) Take 1 Tablet(s) Oral TID as needed for pain 09/24/19 24 024 Inactive carvedilol 25 mg tablet RxNorm: 846689 Take 1 Tablet(s) Oral QD 09/08/19 24 No Stop Date Active pregabalin 100 mg capsule RxNorm: 111976 Take 1 Capsule(s) Oral QAM every morning 09/07/19 24 024 Inactive bisacodyl 10 mg rectal suppository RxNorm: 665687 Insert 1 Suppository Rectal QD as needed 07/13/19 No Stop Date Active polyethylene glycol 3350 17 gram/dose oral powder RxNorm: 704534 Take 17 Gram(s) Oral BID as needed mix in 4-8ox water 07/13/19 24 025 Inactive ketoconazole 2 % shampoo RxNorm: 067691 Apply 1 Application Topical UD as directed 07/13/19 No Stop Date Active Ozempic 1 mg/dose (4 mg/3 mL) subcutaneous pen injector RxNorm: 0703425 Inject 1 Milligram(s) Subcutaneous QW once a week 07/13/19 No Stop Date Active Guaifenesin AC 10 mg-100 mg/5 mL oral liquid RxNorm: 015573 Take 10 Milliliter(s) Oral Q4H every four hours as needed 07/13/19 No Stop Date Active hydrocortisone 2.5 % topical cream RxNorm: 269423 Apply 1 Application Topical BID as needed 07/13/19 No Stop Date Active rosuvastatin 20 mg sprinkle capsule RxNorm: 3495245 Take 1 Capsule(s) Oral QD 07/13/19 24 025 Inactive rosuvastatin 40 mg tablet RxNorm: 881880 Take 1 Tablet(s) Oral QPM every evening 07/13/19 024 Inactive ezetimibe 10 mg tablet RxNorm: 836967 Take 1 Tablet(s) Oral QD 07/13/19 24 025 Inactive aripiprazole 15 mg tablet RxNorm: 444965 Take 1/2 Tablet(s) Oral QD 07/13/19 24 024 Inactive isosorbide mononitrate ER 60 mg tablet,extended release 24 hr RxNorm: 567125 Take 1 Tablet(s) Oral QD 07/13/19 24 024 Inactive ammonium lactate 12 % topical cream RxNorm: 246648 Apply 1 Application Topical BID 07/13/19 24 025 Inactive Vascepa 1 gram capsule RxNorm: 8144609 Take 2 Capsule(s) Oral BID 07/13/19 24 024 Inactive venlafaxine ER 75 mg capsule,extended release 24 hr RxNorm: 521639 Take 3 Capsule(s) Oral QD 07/13/19 24 024 Inactive Basaglar KwikPen U-100 Insulin 100 unit/mL (3 mL) subcutaneous RxNorm: 3547222 Inject 30U SubQ twice daily 07/07/19 24 024 Inactive Please dispense one month supply. Tusharagldestin EugeneikPen U-100 Insulin 100 unit/mL (3 mL) subcutaneous RxNorm: 2780030 Inject 30U SubQ twice daily 07/07/19 24 024 Inactive Please dispense one month supply. pregabalin 150 mg capsule RxNorm: 135319 Take 1 Capsule(s) Oral QHS every night at bedtime 07/05/19 24 024 Inactive pregabalin 150 mg capsule RxNorm: 391185 Take 1 Capsule(s) Oral QHS every night at bedtime 07/05/19 24 024 Inactive polyethylene glycol 3350 17 gram/dose oral powder RxNorm: 743517 Take 1 Packet Oral QD as needed (1 packet = 17g) mix with 4-8oz of liquid 06/15/19 24 024 Inactive bisacodyl 10 mg rectal suppository RxNorm: 876974 Insert one suppository per rectum once daily as needed for constipation 06/15/19 24 024 Inactive bisacodyl 10 mg rectal suppository RxNorm: 813590 Insert one suppository per rectum once daily as needed for constipation 06/15/19 24 024 Inactive pregabalin 100 mg capsule RxNorm: 767699 Take 1 Capsule(s) Oral QAM every morning 04/27/20 23 024 Inactive Levemir FlexPen 100 unit/mL (3 mL) solution subcutaneous insulin pen RxNorm: 791351 Inject 30 Unit(s) Subcutaneous BID 04/27/20 23 024 Inactive rosuvastatin 40 mg tablet RxNorm: 076087 Take 1 Tablet(s) Oral QPM every evening 04/16/20 23 024 Inactive D/C rosuvastatin 20mg venlafaxine ER 75 mg capsule,extended release 24 hr RxNorm: 571619 Take 3 Capsule(s) Oral QD 04/14/20 23 023 Inactive pregabalin 100 mg capsule RxNorm: 154161 Take 1 Capsule(s) Oral QAM every morning [...] strip clotrimazole 1 % topical cream RxNorm: 875650 Take apply topically to abdominal folds twice daily for 14 days 03/12/20 024 Inactive Ozempic 1 mg/dose (4 mg/3 mL) subcutaneous pen injector RxNorm: 8285472 Inject 1 Milligram(s) Subcutaneous QW once a week 03/11/20 023 Inactive rosuvastatin 20 mg tablet RxNorm: 947789 Take 1 Tablet(s) Oral QD 02/26/20 23 023 Inactive d/c pravastatin 80mg Ozempic 1 mg/dose (4 mg/3 mL) subcutaneous pen injector RxNorm: 2571530 Inject 1 Milligram(s) Subcutaneous QW once a week 02/20/20 23 023 Inactive pregabalin 150 mg capsule RxNorm: 319773 Take 1 Capsule(s) Oral HS at bed time 02/19/20 23 023 Inactive pregabalin 100 mg capsule RxNorm: 673844 Take 1 Capsule(s) Oral QAM every morning 02/18/20 023 Inactive venlafaxine ER 75 mg capsule,extended release 24 hr RxNorm: 071171 Take 3 Capsule(s) Oral QD 02/04/20 23 023 Inactive FreeStyle Chema 2 Sensor kit RxNorm: use as directed 02/04/20 23 023 Inactive FreeStyle Chema 2 Sensor kit RxNorm: use as directed 02/04/20 23 024 Inactive fluconazole 150 mg tablet RxNorm: 955441 Take 1 Tablet(s) Oral on day 3 and on day 6 02/03/20 23 024 Inactive venlafaxine ER 150 mg capsule,extended release 24 hr RxNorm: 496371 Take 1 Capsule(s) Oral QD 02/03/20 23 023 Inactive chlorthalidone 25 mg tablet RxNorm: 134076 Take 1 Tablet(s) Oral QAM every morning 02/03/20 024 Inactive acetaminophen 500 mg tablet RxNorm: 763275 1 TABLET ORALLY 3 TIMES DAILY (MAX APAP:4GM/24HR) 12/15/19 23 023 Inactive clotrimazole 1 % topical cream RxNorm: 653790 apply 1g topically to top of feet and in between toes BID 12/09/19 23 025 Inactive potassium chloride ER 20 mEq tablet,extended release RxNorm: 124494 Take 1 Tablet(s) Oral BID 12/09/19 024 Inactive d/c 20mEq once daily (sent from hospital) nystatin 100,000 unit/gram topical powder RxNorm: 052772 APPLY TO AFFECTED AREAS TOPICALLY 2 TIMES DAILY 11/21/19 23 023 Inactive Nystop 100,000 unit/gram topical powder RxNorm: 613825 Apply to abd folds, under breasts and L side of groin Topical BID x 14 days, then BID PRN 11/20/19 023 Inactive dx: yeast dermatitis Bengay Ultra Strength 4 %-30 %-10 % topical cream RxNorm: 866531 Apply 1 Gram(s) Topical QID PRN to feet and legs for neuropathic pain 11/11/19 024 Inactive clotrimazole 1 % topical cream RxNorm: 614602 Apply 1/2 Gram(s) Topical BID Apply to affected areas of groin, periarea, and abdominal topically 2 times daily 11/10/19 23 023 Inactive hydrocortisone 2.5 % topical cream RxNorm: 413349 Apply 1/2 Gram(s) Topical BID as needed 11/10/19 024 Inactive Levemir FlexPen 100 unit/mL (3 mL) solution subcutaneous insulin pen RxNorm: 319236 Inject 30 Unit(s) Subcutaneous BID 10/07/19 23 023 Inactive Humulin R U-500 (Concentrated) Insulin 500 unit/mL subcutaneous soln RxNorm: 872826 Inject 100 Unit(s) Subcutaneous TID 10/07/19 23 024 Inactive Ozempic 0.25 mg or 0.5 mg (2 mg/3 mL) subcutaneous pen injector RxNorm: 6695269 Inject 1/2 Milligram(s) Subcutaneous QW once a week 10/07/19 024 Inactive aripiprazole 15 mg tablet RxNorm: 329955 1/2 TAB (7.5MG) ORALLY DAILY (DX:MAJOR DEPRESSIVE DISORDER) 09/23/19 23 023 Inactive Accu-Chek Guide test strips RxNorm: Use 1 Test Strip QID 09/15/19 23 023 Inactive ok to substitute with any covered alternative test strip Lancets,Thin 28 gauge RxNorm: Use 1 as directed QID 09/15/19 023 Inactive torsemide 20 mg tablet RxNorm: 848801 Take 1 Tablet(s) Oral BID 09/09/19 23 024 Inactive d/c once daily dosing carvedilol 25 mg tablet RxNorm: 778907 Take 1 Tablet(s) Oral QD 08/25/19 23 024 Inactive pregabalin 150 mg capsule RxNorm: 737291 1 Capsule(s) Oral HS at bed time 08/18/19 23 023 Inactive pregabalin 100 mg capsule RxNorm: 580958 1 Capsule(s) Oral QAM every morning 08/18/19 023 Inactive carvedilol 25 mg tablet RxNorm: 542002 1 Tablet(s) Oral QD 07/28/19 23 023 Inactive lisinopril 20 mg tablet RxNorm: 691630 Give 1 Tablet(s) Oral QD 07/28/19 23 023 Inactive Lyrica 150 mg capsule RxNorm: 788904 Take 1 Capsule(s) Oral QHS every night at bedtime 07/19/19 23 023 Inactive d/c 100mg dose Diflucan 150 mg tablet RxNorm: 543815 Take 1 Tablet(s) Oral QD repeat on day 3 and 6 07/19/19 23 023 Inactive pregabalin 100 mg capsule RxNorm: 946220 Take 1 Capsule(s) Oral QAM every morning 07/19/19 23 023 Inactive gatifloxacin 0.5 % eye drops RxNorm: 736383 Instill 1 Drop(s) as directed TID Instill 1 drop in to affected eye(s) starting 1 day prior to surgery and continue until gone (do not exceed 4 weeks). 07/13/19 023 Inactive carvedilol 25 mg tablet RxNorm: 533425 2 Tablet(s) Oral BID 07/13/19 023 Inactive Humulin R Regular U-100 Insulin 100 unit/mL injection solution RxNorm: 525680 85 Unit(s) Injection TID 07/13/19 023 Inactive ketorolac 0.5 % eye drops RxNorm: 932114 Instill 1 Drop(s) as directed QID Instill 1 drop into affected eye(s) 4 times daily starting 1 day prior to surgery and continue until gone (do not exceed 4 weeks). 07/13/19 023 Inactive Diflucan 150 mg tablet RxNorm: 919775 Take 1 Tablet(s) Oral QD repeat on day 3 and 6 06/30/19 023 Inactive Accu-Chek Guide test strips RxNorm: Use 1 Test Strip QID Use 1 test strip to monitor blood glucose 4 times daily and as needed. Dx:E11.42. 06/23/19 023 Inactive ok to substitute with any covered alternative test strip dextromethorphan-gu aifenesin 10 mg-100 mg/5 mL oral liquid RxNorm: 935351 Take 10 Milliliter(s) Oral every 4 hours as needed for cough 06/19/19 23 023 Inactive dextromethorphan-gu aifenesin 10 mg-100 mg/5 mL oral liquid RxNorm: 217284 Take 10 Milliliter(s) Oral every 4 hours as needed for cough 06/19/19 023 Inactive Lyrica 150 mg capsule RxNorm: 279062 Take 1 Capsule(s) Oral QHS every night at bedtime 06/18/19 023 Inactive d/c 100mg dose aripiprazole 15 mg tablet RxNorm: 781737 /2 TAB (7.5MG) ORALLY DAILY (DX:MAJOR DEPRESSIVE DISORDER) 06/05/19 023 Inactive pregabalin 100 mg capsule RxNorm: 127729 1 Capsule(s) Oral QAM every morning 06/02/19 023 Inactive Banophen 50 mg capsule RxNorm: 3843821 Take 1 Capsule(s) Oral Q6H every 6 hours as needed 05/19/19 No Stop Date Active Novolog Flexpen U-100 Insulin aspart 100 unit/mL (3 mL) subcutaneous RxNorm: 1957272 Inject 10 Unit(s) Subcutaneous QHS every night at bedtime with nighttime snack 04/08/20 Inactive Novolog Flexpen U-100 Insulin aspart 100 unit/mL (3 mL) subcutaneous RxNorm: 0651954 Inject 42 Unit(s) Subcutaneous TID in addition to sliding scale 04/08/20 022 Inactive d/c 36u albuterol sulfate HFA 90 mcg/actuation aerosol inhaler RxNorm: 0151161 Take 2 Puff(s) Inhalation Q4H every four hours as needed as needed for SOB, cough, or wheezing 04/07/20 030 Active Banophen 50 mg capsule RxNorm: 4436499 Take 1 Capsule(s) Oral Q6H every 6 hours as needed 04/06/20 023 Inactive diphenhydramine 50 mg tablet RxNorm: 8606776 Take 1 Tablet(s) Oral Q6H every 6 hours as needed 04/06/20 022 Inactive diphenhydramine 50 mg tablet RxNorm: 1406318 1 Tablet(s) Oral Q6H every 6 hours as needed 04/06/20 022 Inactive Abilify 15 mg tablet RxNorm: 050313 1/2 Tablet(s) Oral QD 03/10/20 023 Inactive Shingrix (PF) 50 mcg/0.5 mL intramuscular suspension, kit RxNorm: 9435898 Administer 1/2 Milliliter(s) Intramuscular QD one time shingrix step 2 ( step 1 given 11/04/21) WITH needle - Nursing please administer upon arrival and once administered post a bridge message with date of administration, operating manager, expiration date, and lot# so we can update [facility] 02/18/20 22 022 Inactive dispense with needle Shingrix (PF) 50 mcg/0.5 mL intramuscular suspension, kit RxNorm: 3988014 Administer 1/2 Milliliter(s) Intramuscular QD one time shingrix step 2 ( step 1 given 11/04/21) WITH needle - Nursing please administer upon arrival and once administered post a bridge message with date of administration, operating manager, expiration date, and lot# so we can update [facility] 02/18/20 22 022 Inactive dispense with needle polyethylene glycol 3350 17 gram/dose oral powder RxNorm: 606243 Take 17=1 capful Gram(s) Oral QD mix with 4-8oz of liquid 01/08/20 22 025 Inactive take this in addition to BID prn order Lyrica 100 mg capsule RxNorm: 344437 Take 1 Capsule(s) Oral QAM every morning 01/08/20 22 022 Inactive d/c 50mg dose acetaminophen 500 mg tablet RxNorm: 519721 Take 1 Tablet(s) Oral TID 01/08/20 22 022 Inactive d/c PRN order Lyrica 150 mg capsule RxNorm: 746293 Take 1 Capsule(s) Oral QHS every night at bedtime 01/08/20 22 023 Inactive d/c 100mg dose Abilify 5 mg tablet RxNorm: 554802 Take 1 Tablet(s) Oral QD take 1 tab po QD #30 refill 5 dx: MDD 12/12/19 22 022 Inactive Abilify 5 mg tablet RxNorm: 019488 Take 1 Tablet(s) Oral QD take 1 tab po QD #30 refill 5 dx: MDD 12/12/19 22 022 Inactive Novolog Flexpen U-100 Insulin aspart 100 unit/mL (3 mL) subcutaneous RxNorm: 6456731 Inject 42 Unit(s) Subcutaneous TID in addition to sliding scale 12/10/19 22 022 Inactive d/c 36u chlorthalidone 25 mg tablet RxNorm: 140205 Take 1 Tablet(s) Oral QAM every morning 12/10/19 22 023 Inactive pregabalin 50 mg capsule RxNorm: 441915 Take 1 Capsule(s) Oral QAM every morning 11/12/19 22 022 Inactive tetanus-diphtheria toxoids-Td 2 Lf unit-2 Lf unit/0.5 mL IM suspension RxNorm: 139 Take 0.5 Miscellaneous Intramuscular 11/12/19 22 022 Inactive need tdap - nursing to administer upon arrival pregabalin 50 mg capsule RxNorm: 183661 Take 1 Capsule(s) Oral QAM every morning 10/16/19 22 022 Inactive pregabalin 50 mg capsule RxNorm: 496638 Take 1 Capsule(s) Oral QAM every morning 10/16/19 22 022 Inactive pregabalin 50 mg capsule RxNorm: 856535 1 Capsule(s) Oral QAM every morning 10/15/19 22 022 Inactive Shingrix (PF) 50 mcg/0.5 mL intramuscular suspension, kit RxNorm: 9511859 Administer 1/2 Milliliter(s) Intramuscular one time Nursing please administer upon arrival and once administered post a bridge message with date of administration, operating manager, expiration date, and lot# so we can update [facility]. 10/09/19 22 022 Inactive shingrix step 1 Shingrix (PF) 50 mcg/0.5 mL intramuscular suspension, kit RxNorm: 0727085 Administer 1/2 Milliliter(s) Intramuscular one time Nursing please administer upon arrival and once administered post a bridge message with date of administration, operating manager, expiration date, and lot# so we [...] aspart 100 unit/mL (3 mL) subcutaneous RxNorm: 3540598 Inject 10 Unit(s) Subcutaneous QHS every night at bedtime with nighttime snack 10/08/19 22 Inactive Shingrix (PF) 50 mcg/0.5 mL intramuscular suspension, kit RxNorm: 1437729 ADMINISTER 2-DOSE SERIES PER CDC GUIDELINES 10/08/19 22 Active Shingrix (PF) 50 mcg/0.5 mL intramuscular suspension, kit RxNorm: 8794231 ADMINISTER 2-DOSE SERIES PER CDC GUIDELINES 10/08/19 22 Inactive Novolog Flexpen U-100 Insulin aspart 100 unit/mL (3 mL) subcutaneous RxNorm: 5640053 Inject 36 Unit(s) Subcutaneous TID in addition to sliding scale 10/08/19 Inactive cholecalciferol (vitamin D3) 1,250 mcg (50,000 unit) capsule RxNorm: 819560 Take 1 Capsule(s) Oral QW once a week 10/08/19 Inactive Novofine Autocover 30 gauge x 1/3 needle RxNorm: Use 1 Miscellaneous UD as directed Use 1 needle as directed to administer insulin 5 times a day Dx:E11.42. 10/03/19 022 Inactive ok to substitute with any covered alternative pen needle benzoyl peroxide 10 % topical cleanser RxNorm: 040579 Apply 1 Application Topical QD apply to face, wash rinse and dry once daily (may change to QOD if drying) 08/19/19 22 022 Inactive (%covered by insurance) #60ml refill 11 dx: acne benzoyl peroxide 10 % topical cleanser RxNorm: 118372 Apply 1 Application Topical QD apply to face, wash rinse and dry once daily (may change to QOD if drying) 08/19/19 22 022 Inactive (%covered by insurance) #60ml refill 11 dx: acne benzoyl peroxide 10 % topical cleanser RxNorm: 658342 Apply 1 Application Topical QD apply to face, wash rinse and dry once daily (may change to QOD if drying) 08/19/19 22 022 Inactive (%covered by insurance) #60ml refill 11 dx: acne Lyrica 50 mg capsule RxNorm: 843766 Take 1 Capsule(s) Oral QAM every morning Take 1 capsule by mouth once daily 08/19/19 22 022 Inactive benzoyl peroxide 10 % topical cleanser RxNorm: 804411 Apply 1 Application Topical QD apply to face, wash rinse and dry once daily (may change to QOD if drying) 08/19/19 22 022 Inactive (%covered by insurance) #60ml refill 11 dx: acne Lyrica 100 mg capsule RxNorm: 247856 Take 1 Capsule(s) Oral QHS every night at bedtime Take 1 capsule by mouth once daily at bedtime 08/19/19 22 022 Inactive Lyrica 100 mg capsule RxNorm: 796911 Take 1 Capsule(s) Oral QHS every night at bedtime Take 1 capsule by mouth once daily at bedtime 08/16/19 22 022 Inactive Lyrica 50 mg capsule RxNorm: 150169 Take 1 Capsule(s) Oral QAM every morning Take 1 capsule by mouth once daily 08/16/19 22 022 Inactive Levemir FlexTouch U-100 Insulin 100 unit/mL (3 mL) subcutaneous pen RxNorm: 976059 Inject 86 Unit(s) Subcutaneous BID 08/05/19 22 022 Inactive d/c 83units BID Lyrica 100 mg capsule RxNorm: 190731 Take 1 Capsule(s) Oral QHS every night at bedtime Take 1 capsule by mouth once daily at bedtime 07/14/19 22 022 Inactive Lyrica 50 mg capsule RxNorm: 973837 Take 1 Capsule(s) Oral QAM every morning Take 1 capsule by mouth once daily 07/14/19 22 022 Inactive Levemir FlexTouch U-100 Insulin 100 unit/mL (3 mL) subcutaneous pen RxNorm: 333556 Inject 83 Unit(s) Subcutaneous BID 02/ 022 [...] test strip hydralazine 50 mg tablet RxNorm: 701173 Take 1 Tablet(s) Oral QID 05/05/20 022 Inactive venlafaxine ER 225 mg tablet,extended release 24 hr RxNorm: 832549 Take 1 Tablet(s) Oral QD 05/05/20 21 021 Inactive venlafaxine ER 225 mg tablet,extended release 24 hr RxNorm: 312266 Take 1 Tablet(s) Oral QD 05/05/20 21 022 Inactive isosorbide mononitrate ER 30 mg tablet,extended release 24 hr RxNorm: 090140 Take 1 Tablet(s) Oral QD 05/05/20 024 Inactive hydralazine 50 mg tablet RxNorm: 877578 Take 1 Tablet(s) Oral QID 05/05/20 21 021 Inactive aspirin 81 mg tablet,delayed release RxNorm: 365710 Take 1 Tablet(s) Oral QD 03/31/20 022 Inactive Vitamin D2 1,250 mcg (50,000 unit) capsule RxNorm: 8364069 Take 1 Capsule(s) Oral QW once a week x 12 weeks 03/31/20 022 Inactive Vitamin D2 1,250 mcg (50,000 unit) capsule RxNorm: 1834148 Take 1 Capsule(s) Oral QW once a week 03/31/20 021 Inactive Zetia 10 mg tablet RxNorm: 206947 Take 1 Tablet(s) Oral QD 03/31/20 024 Inactive Zetia 10 mg tablet RxNorm: 057857 Take 1 Tablet(s) Oral QD 03/31/20 021 Inactive hydralazine 25 mg tablet RxNorm: 601404 Take 1 Tablet(s) Oral QID 03/31/20 021 Inactive hydralazine 25 mg tablet RxNorm: 531292 Take 1 Tablet(s) Oral QID 03/31/20 021 Inactive hydralazine 10 mg tablet RxNorm: 273871 Take 1 Tablet(s) Oral QID 03/03/20 021 Inactive cephalexin 500 mg tablet RxNorm: 565353 Take 1 Tablet(s) Oral QID 02/27/20 021 Inactive cephalexin 500 mg tablet RxNorm: 971695 Take 1 Tablet(s) Oral QID 02/27/20 021 Inactive lisinopril 40 mg tablet RxNorm: 470596 Take 1 Tablet(s) Oral QD 02/11/20 21 023 Inactive Eliquis 5 mg tablet RxNorm: 0705978 Take 1 Tablet(s) Oral BID 01/05/20 21 025 Inactive Eliquis 5 mg tablet RxNorm: 5159576 Take 2 Tablet(s) Oral QD 01/01/20 21 021 Inactive Lyrica 50 mg capsule RxNorm: 622384 Take 1 Capsule(s) Oral QAM every morning 12/24/19 021 Inactive Lyrica 100 mg capsule RxNorm: 848136 Take 1 Capsule(s) Oral QHS every night at bedtime 12/24/19 021 Inactive clotrimazole 1 % topical cream RxNorm: 200405 Apply to right foot and toes Topical BID 12/04/19 21 023 Inactive metoprolol succinate ER 200 mg tablet,extended release 24 hr RxNorm: 683914 Take 1 Tablet(s) Oral QD 12/04/19 023 Inactive ciprofloxacin 500 mg tablet RxNorm: 532386 Take 1 Tablet(s) Oral QD 11/30/19 021 Inactive DX ofloxacin otic drops Accu-Chek Guide test strips RxNorm: USE 1 TO CHECK GLUCOSE 4 TIMES DAILY AND NEEDED 11/15/19 21 023 Inactive Blood Glucose Test strips RxNorm: Use 1 Test Strip QID at PRN 11/05/19 21 023 Inactive E11.42 lisinopril 30 mg tablet RxNorm: 612897 Take 1 Tablet(s) Oral QD 10/30/19 021 Inactive lisinopril 20 mg tablet RxNorm: 149083 Take 1 Tablet(s) Oral QD 10/23/19 21 021 Inactive lisinopril 20 mg tablet RxNorm: 637979 Take 1 Tablet(s) Oral QD 10/23/19 21 021 Inactive lisinopril 10 mg tablet RxNorm: 239182 Take 1 Tablet(s) Oral QD 10/02/19 21 021 Inactive icosapent ethyl 1 gram capsule RxNorm: 2933219 Take 2 Capsule(s) (2 gm) Oral BID with meals 09/12/19 21 024 Inactive Okay to dispense one 2gm tab if you have that available. icosapent ethyl 1 gram capsule RxNorm: 3177242 Take 2 Capsule(s) Oral BID 09/12/19 21 021 Inactive Okay to dispense one 2gm tab if you have that available. amlodipine 10 mg tablet RxNorm: 619847 Take 1 Tablet(s) Oral QD 09/04/19 21 021 Inactive aspirin 81 mg tablet,delayed release RxNorm: 739502 Take 1 Tablet(s) Oral QD 09/04/19 21 021 Inactive Levemir FlexTouch U-100 Insulin 100 unit/mL (3 mL) subcutaneous pen RxNorm: 786801 Inject 150 Unit(s) Subcutaneous BID 09/04/19 21 022 Inactive venlafaxine ER 150 mg tablet,extended release 24 hr RxNorm: 840629 Take 1 Tablet(s) Oral QD 09/04/19 21 021 Inactive clotrimazole-betame thasone 1 %-0.05 % topical cream RxNorm: 203766 Apply to rash on red area on left abdomen/chest Topical BID 08/10/19 21 021 Inactive amlodipine 5 mg tablet RxNorm: 087471 Take 1 Tablet(s) Oral QD 07/31/19 21 021 Inactive cephalexin 500 mg tablet RxNorm: 547161 Take 1 Tablet(s) Oral BID BID - Twice Daily 07/31/19 21 021 Inactive Start 08/01/20 pantoprazole 40 mg tablet,delayed release RxNorm: 830531 Take 1 Tablet(s) Oral QAM every morning 07/08/19 21 025 Inactive clopidogrel 75 mg tablet RxNorm: 659661 Take 1 Tablet(s) Oral QD 07/08/19 21 021 Inactive Blood Glucose Test strips RxNorm: Use 1 Test Strip QID at PRN 07/08/19 21 021 Inactive E11.42 senna 8.6 mg tablet RxNorm: 060761 Take 1 Tablet(s) Oral QD 07/08/19 21 025 Inactive Novolog Flexpen U-100 Insulin aspart 100 unit/mL (3 mL) subcutaneous RxNorm: 0839456 Administer per sliding scale Milliliter(s) Subcutaneous TID 151-200: 10 u; 201-250: 20 u; 251-300: 30 u; 301-350: 40 u; 351-400: 50 u. 07/08/19 022 Inactive lisinopril 5 mg tablet RxNorm: 268869 Take 1 Tablet(s) Oral QD 07/08/19 021 Inactive Novolog Flexpen U-100 Insulin aspart 100 unit/mL (3 mL) subcutaneous RxNorm: 0285924 Inject 85 Unit(s) Subcutaneous TID 07/08/19 022 Inactive pravastatin 80 mg tablet RxNorm: 420871 Take 1 Tablet(s) Oral QHS every night at bedtime 07/08/19 023 Inactive clotrimazole 1 % topical cream RxNorm: 783706 Apply to bilateral groin areas Topical BID 07/08/19 022 Inactive metoprolol succinate ER 200 mg tablet,extended release 24 hr RxNorm: 223939 Take 1 Tablet(s) Oral QD 07/08/19 021 Inactive Vitamin D3 25 mcg (1,000 unit) tablet RxNorm: 525531 Take 1 Tablet(s) Oral QD 07/08/19 021 Inactive isosorbide dinitrate 30 mg tablet RxNorm: 193398 Take 1 Tablet(s) Oral QD 07/08/19 021 Inactive carbamazepine 200 mg tablet RxNorm: 142492 Take 1 Tablet(s) Oral BID 07/08/19 025 Inactive Levemir FlexTouch U-100 Insulin 100 unit/mL (3 mL) subcutaneous pen RxNorm: 525887 Inject 140 Unit(s) Subcutaneous BID 07/08/19 021 Inactive torsemide 20 mg tablet RxNorm: 527183 Take 1 Tablet(s) Oral QD 07/08/19 023 Inactive venlafaxine 75 mg tablet RxNorm: 827521 Take 1 Tablet(s) Oral QD 07/08/19 021 Inactive acetaminophen 500 mg tablet RxNorm: 258709 Take 1 Tablet(s) Oral TID as needed for headache 06/18/19 21 021 Inactive acetaminophen 500 mg tablet RxNorm: 098577 Take 1 Tablet(s) Oral TID as needed for headache 06/18/19 21 021 Inactive Lyrica 100 mg capsule RxNorm: 662640 Take 1 Capsule(s) Oral QHS every night at bedtime 06/11/19 21 021 Inactive Lyrica 50 mg capsule RxNorm: 986491 Take 1 Capsule(s) Oral QAM every morning 06/10/19 21 021 Inactive hydrocortisone 2.5 % topical cream RxNorm: 331375 Apply to bilateral groin creases Topical BID 05/15/20 20 021 Inactive clotrimazole 1 % topical cream RxNorm: 419563 Apply to bilateral groin areas Topical BID 05/15/20 20 021 Inactive Lyrica 50 mg capsule RxNorm: 087320 Take 1 Capsule(s) Oral QAM every morning 05/14/20 20 020 Inactive Lyrica 100 mg capsule RxNorm: 532609 Take 1 Capsule(s) Oral QHS every night [...] yeast dermatitis Lyrica 100 mg capsule RxNorm: 944671 Take 1 Capsule(s) Oral QHS every night at bedtime 03/13/20 20 Inactive Lyrica 50 mg capsule RxNorm: 085136 Take 1 Capsule(s) Oral QAM every morning 03/13/20 20 Inactive ketoconazole 2 % shampoo RxNorm: 596327 Apply Topical two times a week with showers 03/11/20 20 024 Inactive cholecalciferol (vitamin D3) 50 mcg (2,000 unit) tablet RxNorm: 494973 Take 1 Tablet(s) Oral QD 03/11/20 Inactive Zetia 10 mg tablet RxNorm: 024024 Take 1 Tablet(s) Oral QD 03/07/20 20 021 Inactive Zetia 10 mg tablet RxNorm: 686641 Take 1 Tablet(s) Oral QD 03/07/20 20 Inactive Lyrica 50 mg capsule RxNorm: 716597 Take 1 Capsule(s) Oral QAM every morning 02/15/20 20 Inactive Lyrica 100 mg capsule RxNorm: 177810 Take 1 Capsule(s) Oral QHS every night at bedtime 02/15/20 20 Inactive Lyrica 100 mg capsule RxNorm: 905211 Take 1 Capsule(s) Oral QHS every night at bedtime 02/15/20 20 Inactive Lyrica 50 mg capsule RxNorm: 646771 Take 1 Capsule(s) Oral QAM every morning 02/15/20 20 020 Inactive loperamide 2 mg capsule RxNorm: 665414 Take 1 Capsule(s) Oral QID as needed 09/06/19 025 Inactive venlafaxine ER 75 mg capsule,extended release 24 hr RxNorm: 737665 Take 3 Capsule(s) Oral QD 06/12/19 22 023 Inactive polyethylene glycol 3350 17 gram/dose oral powder RxNorm: 036135 Take 17=1 capful Gram(s) Oral BID as needed mix with 4-8oz of liquid 06/12/19 22 024 Inactive icosapent ethyl 1 gram capsule RxNorm: 8010572 Take 2 Capsule(s) (2 gm) Oral BID with meals 10/07/19 23 023 Inactive Okay to dispense one 2gm tab if you have that available. Levemir FlexTouch U-100 Insulin 100 unit/mL (3 mL) subcutaneous pen RxNorm: 433267 Inject 80 Unit(s) Subcutaneous BID 07/14/19 23 023 Inactive metoprolol succinate ER 200 mg tablet,extended release 24 hr RxNorm: 266740 Take 1 Tablet(s) Oral QD 08/12/19 025 Inactive hydralazine 50 mg tablet RxNorm: 010079 Take 1 Tablet(s) Oral QID 08/12/19 025 Inactive Soft Touch Lancets RxNorm: miscellaneous 03/04/20 24 025 Inactive Novolog Flexpen U-100 Insulin aspart 100 unit/mL (3 mL) subcutaneous RxNorm: 4630040 Insert 30 Unit(s) Subcutaneous TID with meals [...] Planned Activity Notes Codes Status Date Referral: [facility] Radiology/Imaging WPtel: [address] [place], [place] [id number] USReferralAppointment Vikgzkkaa78/06/2025Patient Education: Patient Medication AdszjbxSooexszhi39/13/2025ppointment: Harrison Munson WPtel: [address] [place], [place] [id number] [place]/07/11/2024Referral: [facility]/Endocrinology WPtel: [address] [place] [address] 3 [id number] USReferralNo Records Msjybrxg36/24/2025ppointment: Harrison Munson WPtel: [address] [place], [place] [id number] USAV02/08/2024ppointment: Harrison Munson WPtel: [address] [place], [place] [id number] USF/U001/11/2024ppointment: Sandra Clark WPtel: [address] [place], [place] [phone] [facility] Psych Follow Up12/09/2022ppointment: Casper Tapan WPtel: [address] [facility] [address] [id number] USTCM10/26/2022Referral: [facility] WPtel: [address], [address] [id number] USReferralRecords Rmnvrmgy92/08/2023ppointment: Casper Tapan WPtel: [address] [facility] [address] [id number] USF/U008/11/2022ppointment: Tapan Shirley WPtel: [address] [facility] [address] [id number] USF/U007/14/2022ppointment: Tapan Shirley WPtel: [address] [facility] [address] [id number] USF/U02Referral: [facility] WPtel: [address] [id number] RUXyeuqowjDsejxpwui47/12/2022Referral: General CardiologyReferralCompleted 1Referral: General PsychologistReferralClosedReferral: General PsychiatristReferralPatient/Family [...] Sister Jyotsna involved in his care cell# [phone] Guardian: Giulia (tapan met in person 09/01/21), now has Lexii (same group as giulia)AWV 9.24.4. Lab Schedule: Mar-/September*September (CBC with diff, CMP, [...] appointment 05.26.2024 with Jessa Webster MD at [facility]. Start Pioglitazone 15 mg QD. Stop Basaglar insulin. Increase Ozempic 2 mg once wkly. Continue Humalin R U-500 100 units with meals TID. FOLLOW UP 2 MONTHS. If BG >400 add 50 units to next scheduled dose of Humalin R U 500 insulin 06/12/2024
--- OUTSIDE RECORDS SUMMARY | 2024-10-19 18:50 | XMS_ITS | CCD ---
Author Name Cecilio Durham Address [address] [facility] [address] [place] [address] Phone Organization [facility] Phone Care Team Providers Care Commercial Administrator Name Role Phone Harrison Durham Primary Care Provider Leona vailable Unavailable Chronic Care Management Unavaila ble Summary Purpose DataExchange Insurance Providers Payer name Policy type / Coverage type Covered democrat ID Effective Begin Date Effective End Date Medicare [place] Medicare Part B [id number] Unknown Unknown Medicaid [place] Medicare Part B [id number] Unknown Unknown Family history Sister Brittany Suggs [...] on file 07/11/[address]: 338731368 Never smoker 01/16 Sexually Active? Unknown No [...] Unknown Alf 09/03/[address]: 756933802 No Alcohol Consum ption 09/02/2020 Allergies, Adverse Reactions, Alerts Substance Reaction Codes Entered Date Inactivated Date Status * NO KNOWN FOOD ALLERGIES Lnhwwwr2107/13/2023 Inactive DateActiveLISINOPRILRxNorm: 5641739 Inactive DateActiveMetformin FMpErlckvu11/28/2020 Inactive DateActive* NO KNOWN ENVIRONMENTAL [id number]/27/2024 Inactive DateActive Problems Condition Codes Effective Dates Condition St atus Amputated toe of right foot ICD-10: S98. 131A ICD-9: 895.0055ActiveHypercoagulable stateICD-10: D68.59 ICD-9: 289.8105tiveHypokalemiaICD-10: E87.6 ICD-9: 276.8055ActiveLower extremity edemaICD-10: R60.0 ICD-9: 782.305/5ActiveMajor depression, recurrentICD-10: F33.9 ICD-9: 296.30055ActiveOnychogryposisICD-10: L60.2 ICD-9: 703.805ActivePulmonary noduleSNOMED CT: 499104888 ICD-10: R91.1 ICD-9: 793.11055ActiveRecurrent major depressive disorder, in partial remissionICD-10: F33.41 ICD-9: 296.35055ActiveStage 2 chronic 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ICD-10: E11.22 ICD-9: 250.40055ActiveType 2 diabetes mellitus with diabetic polyneuropathy, with long-term current use of insulinICD-10: E11.42 ICD-9: 250.60055ActivePressure ulcer of left calf, unstageableICD-10: L89.890 ICD-9: 707.0910/10/2024ResolvedConstipation by delayed colonic transitICD-10: K59.01 ICD-9: 564.01045ActiveLoose stoolsSNOMED CT: 056855199 ICD-10: R19.5 ICD-9: 787.7045ActiveBody mass index [BMI] 60.0-69.9, adultSNOMED CT: 790627725 ICD-10: Z68.44 ICD-9: V85.44035ActiveMixed incontinenceSNOMED CT: 58642534 ICD-10: N39.46 ICD-9: 788.33035ActiveDiabetic neuropathy associated with [...] planning - to document end of life [id number] physical examICD-10: Z00.00 ICD-9: V70.009ctiveHistory of anemia due to CKDICD-10: N18.9 ICD-9: 585.909/ctiveHx of deep venous thrombosisICD-10: Z86.718 ICD-9: V12.5109ctiveLearning disabilityICD-10: F81.9 ICD-9: 315.209/24/2024ActiveReducible umbilical herniaICD-10: K42.9 ICD-9: 553.109/ctiveSeizure disorderICD-10: G40.909 ICD-9: 345.9009/ctiveVitamin D deficiencyICD-10: E55.9 ICD-9: 268.909/ctiveCallus of heelICD-10: L84 ICD-9: 78037/esolvedGout due to renal impairmentICD-10: M10.30 ICD-9: 274.1005esolvedHyperhidrosis of palmsICD-10: L74.512 ICD-9: 705.21010/12/2023esolvedHyperlipidemia, unspecifiedICD-10: E78.5 ICD-9: 272.405esolvedOther assisted (current) drug therapyICD-10: Z79.899 ICD-9: V58.6905esolvedPain of [...] tagICD-10: L91.8 ICD-9: 701.904/4ResolvedCoronary artery disease involving [place] coronary artery of [place] heart, angina presence unspecifiedICD-10: I25.10 ICD-9: 414.0102/4ActiveInappropriate sexual behaviorICD-10: Z72.89 ICD-9: 312.8910/ctivePre-op evaluationICD-10: Z01.818 ICD-9: V72.8403/ctiveSecondary hypertensionICD-10: I15.9 ICD-9: 405.9903/ctiveDepressionICD-10: F32.9 ICD-9: 43818/2ResolvedDVT (deep venous thrombosis)ICD-10: I82.409 ICD-9: 453.4009esolvedEncounter for [...] to other viral communicable diseasesICD-10: Z20.828 ICD-9: V01.7902/2783SfidzmdzFnqybgnfJnzxkpf70/28/2020ActiveDiabetes mellitus Type 6Kgtgprc81/28/2020ActiveAnemia in chronic kidney diseaseICD-10: D63.1 02/12/2020ResolvedHyperlipidemia, unspecifiedICD-10: E78.Resolved Medications Medication Codes Instructions Start Date Stop Date Status Fill Instructions potassium chloride ER 20 mEq tablet,extended release RxNorm: 547949 Take 2 Tablet(s) Oral TID (dx: hypokalemia) 09/14/19 25 026 Active potassium chloride ER 20 mEq tablet,extended release RxNorm: 558970 Take 2 Tablet(s) Oral TID (dx: hypokalemia) 09/14/19 25 025 Inactive loperamide 2 mg tablet RxNorm: 458912 Take 2 Tablet(s) Oral UD as directed [...] Date Active senna 8.6 mg tablet RxNorm: 228346 Take 1 Tablet(s) Oral QD as needed and 1 tab BID prn 09/06/19 No Stop Date Active cyclobenzaprine 10 mg tablet RxNorm: 995529 Take 1 Tablet(s) Oral QHS every night at bedtime as needed 09/06/19 25 No Stop Date Active loperamide 2 mg tablet RxNorm: 130988 Take 2 Tablet(s) Oral UD as directed as needed 2 tabs after first loose stool then 1 tab after each subsequent stool PRN Do not exceed 4 doses in 24 hours. Do not administer until after 3 loose stools. 09/06/19 25 026 Active pioglitazone 15 mg tablet RxNorm: 811185 Take 1 Tablet(s) Oral QD 09/06/19 25 No Stop Date Active loperamide 2 mg tablet RxNorm: 918923 Take 2 Tablet(s) Oral UD as directed as needed 2 tabs after first loose stool then 1 tab after each subsequent stool PRN Do not exceed 4 doses in 24 hours. Do not administer until after 3 loose stools. 09/06/19 Inactive pregabalin 100 mg capsule RxNorm: 956778 1 CAPSULE BY MOUTH EVERY MORNING (DX: NEUROPATHY) 08/23/19 25 Active FACILITY IS REQUESTING REFILL. PRIOR RX HAS BEEN EXHAUSTED. THANK YOU. pregabalin 150 mg capsule RxNorm: 792023 1 CAPSULE BY MOUTH AT BEDTIME (DX: NEUROPATHY) 08/21/19 25 Active FACILITY IS REQUESTING A REFILL OF THIS MEDICATION, THANK YOU! senna 8.6 mg tablet RxNorm: 879063 Take 1 Tablet(s) Oral QD as needed for constipation on day 2 of no bowel movement 08/09/19 Inactive Miralax 17 gram/dose oral powder RxNorm: 345838 Administer 17 Gram(s) Oral QD as needed for constipation on day 3 of no bowel movement 08/09/19 25 025 Inactive senna 8.6 mg tablet RxNorm: 564112 Take 1 Tablet(s) Oral QD as needed for constipation on day 2 of no bowel movement 08/09/19 Inactive Miralax 17 gram/dose oral powder RxNorm: 089060 Administer 17 Gram(s) Oral QD as needed for constipation on day 3 of no bowel movement 08/09/19 025 Inactive pregabalin 100 mg capsule RxNorm: 183706 Take 1 Capsule(s) Oral QAM every morning [...] (Concentrated) Insulin 500 unit/mL subcutaneous soln RxNorm: 582281 Inject 100 Unit(s) Subcutaneous AC before meals Three times daily before meals. 07/24/19 25 025 Inactive ammonium lactate 12 % topical cream RxNorm: 187572 Apply 1 Application Topical BID 07/20/19 25 No Stop Date Active ezetimibe 10 mg tablet RxNorm: 688867 Take 1 Tablet(s) Oral QD 07/18/19 25 No Stop Date Active senna 8.6 mg tablet RxNorm: 795256 Take 1 Tablet(s) Oral QD 07/18/19 25 025 Inactive metoprolol succinate ER 200 mg tablet,extended release 24 hr RxNorm: 434989 Take 1 Tablet(s) Oral QD 06/19/19 25 No Stop Date Active pantoprazole 40 mg tablet,delayed release RxNorm: 532401 Take 1 Tablet(s) Oral QAM every morning 06/19/19 25 No Stop Date Active hydralazine 50 mg tablet RxNorm: 400820 Take 1 Tablet(s) Oral QID 06/19/19 25 No Stop Date Active carbamazepine 200 mg tablet RxNorm: 158305 Take 1 Tablet(s) Oral BID 06/19/19 25 No Stop Date Active amlodipine 10 mg tablet RxNorm: 334279 Take 1 Tablet(s) Oral QD 06/19/19 25 No Stop Date Active Eliquis 5 mg tablet RxNorm: 9651081 Take 1 Tablet(s) Oral BID 06/19/19 25 No Stop Date Active pen needle, diabetic 30 gauge x 3/16 RxNorm: Use 1 6 times per day w/insulin 06/14/19 25 026 Active pen needle, diabetic 30 gauge x 3/16 RxNorm: Use 1 needle 6 times per day w/insulin 06/14/19 25 025 Inactive nystatin 100,000 unit/gram topical powder RxNorm: 179304 Apply 1 Application Topical BID as needed abdominal/breast /groin folds 05/24/19 25 026 Active pregabalin 100 mg capsule RxNorm: 866032 Take 1 Capsule(s) Oral QAM every morning 05/22/19 25 025 Inactive nystatin 100,000 unit/gram topical powder RxNorm: 582710 Apply 1 Application Topical BID as needed abdominal/breast /groin folds 11 Inactive chlorthalidone 25 mg tablet RxNorm: 885653 Take 1 Tablet(s) Oral QAM every morning 04/06/20 No Stop Date Active pregabalin 150 mg capsule RxNorm: 381001 Take 1 Capsule(s) Oral QHS every night at bedtime 03/31/20 Inactive Vascepa 1 gram capsule RxNorm: 9805193 Take 2 Capsule(s) Oral BID 03/30/20 Active rosuvastatin 40 mg tablet RxNorm: 332033 1 TAB ORALLY EVERY EVENING (DX:CORONARY ARTERY DISEASE) 03/28/20 No Stop Date Active venlafaxine ER 75 mg capsule,extended release 24 hr RxNorm: 031978 3 CAPS (225MG) ORALLY DAILY (DX: MOOD DISORDER) 03/28/20 No Stop Date Active pregabalin 100 mg capsule RxNorm: 078869 Take 1 Capsule(s) Oral QAM every morning 03/20/20 Inactive cholecalciferol (vitamin D3) 1,250 mcg (50,000 unit) capsule RxNorm: 183767 Take 1 Capsule(s) Oral QW once a [...] Insulin 100 unit/mL (3 mL) subcutaneous RxNorm: 3103123 Inject 40 Unit(s) Subcutaneous BID 03/07/20 025 Inactive Please dispense one month supply. Humulin R U-500 (Concentrated) Insulin 500 unit/mL subcutaneous soln RxNorm: 897443 Inject 100 Unit(s) Subcutaneous AC before meals [...] PRN) to be use with new Accu [place] meter 03/04/20 Inactive ok to substitute with any covered alternative test strip FreeStyle Chema 2 Sensor kit RxNorm: Use UD as directed 03/02/20 Inactive Pen Needle 30 gauge x 5 RxNorm: Pen(s) Use 1 needle as directed TID 03/02/20 Inactive nystatin 100,000 unit/gram topical powder RxNorm: 009751 Apply 1 Application Topical BID as needed [...] (Concentrated) Insulin 500 unit/mL subcutaneous soln RxNorm: 912140 Inject 100 Unit(s) Subcutaneous TID 02/17/20 24 024 Inactive Humulin R U-500 (Concentrated) Insulin 500 unit/mL subcutaneous soln RxNorm: 031980 Inject 100 Unit(s) Subcutaneous TID 02/10/20 24 024 Inactive Basaglar ValorieikPen U-100 Insulin 100 unit/mL (3 mL) subcutaneous RxNorm: 1155976 Inject 30 Unit(s) Subcutaneous BID 02/10/20 24 024 Inactive Please dispense one month supply. pregabalin 100 mg capsule RxNorm: 002631 Take 1 Capsule(s) Oral QAM every morning 02/07/20 24 024 Inactive isosorbide mononitrate ER 60 mg tablet,extended release 24 hr RxNorm: 310431 Take 1 Tablet(s) Oral QD 02/01/20 24 025 Active aripiprazole 15 mg tablet RxNorm: 731982 Take 1/2 Tablet(s) Oral QD 02/01/20 24 025 Active torsemide 20 mg tablet RxNorm: 160757 1 TAB ORALLY DAILY (DX: EDEMA) 01/27/20 No Stop Date Active potassium chloride ER 20 mEq tablet,extended release(part/cryst) RxNorm: 1007987 2 TABS (40MEQ) ORALLY TWICE DAILY (DX: HYPOKALEMIA) 01/27/20 24 025 Inactive cephalexin 500 mg capsule RxNorm: 734112 Take 1 Capsule(s) Oral QID 12/17/19 24 024 Inactive cephalexin 500 mg capsule RxNorm: 142816 Take 1 Capsule(s) Oral QID 12/17/19 24 024 Inactive acetaminophen 500 mg tablet RxNorm: 812901 (MAX APAP:4GM/24HR) Take 1 Tablet(s) Oral TID as needed for pain 12/10/19 24 024 Inactive torsemide 20 mg tablet RxNorm: 184264 Take 1 Tablet(s) Oral QD 10/26/19 24 024 Inactive potassium chloride ER 20 mEq tablet,extended release RxNorm: 380098 Take 2 Tablet(s) Oral BID 10/26/19 24 024 Inactive torsemide 20 mg tablet RxNorm: 998489 Take 1 Tablet(s) Oral QD 10/26/19 24 Inactive potassium chloride ER 20 mEq tablet,extended release RxNorm: 548035 Take 2 Tablet(s) Oral BID 10/26/19 24 Inactive Artificial Tears (PF) 0.1 %-0.3 % drops in a dropperette RxNorm: 336280 Apply 1-2 Drop(s) Both eyes BID as needed 09/28/19 24 Inactive erythromycin 5 mg/gram (0.5 %) eye ointment RxNorm: 163189 Apply 1 Application Both eyes QHS every night at bedtime Instill ~1 cm ribbon into affected eye 09/28/19 24 024 Inactive Artificial Tears (PF) 0.1 %-0.3 % drops in a dropperette RxNorm: 649015 Apply 1-2 Drop(s) Both eyes BID as needed 09/28/19 24 024 Inactive erythromycin 5 mg/gram (0.5 %) eye ointment RxNorm: 237976 Apply 1 Application Both eyes QHS every night at bedtime Instill ~1 cm ribbon into affected eye 09/28/19 24 Inactive acetaminophen 500 mg tablet RxNorm: 896299 (MAX APAP:4GM/24HR) Take 1 Tablet(s) Oral TID as needed for pain 09/24/19 Inactive carvedilol 25 mg tablet RxNorm: 697141 Take 1 Tablet(s) Oral QD 09/08/19 24 No Stop Date Active pregabalin 100 mg capsule RxNorm: 631907 Take 1 Capsule(s) Oral QAM every morning 09/07/19 24 024 Inactive bisacodyl 10 mg rectal suppository RxNorm: 923779 Insert 1 Suppository Rectal QD as needed 07/13/19 24 No Stop Date Active ketoconazole 2 % shampoo RxNorm: 270122 Apply 1 Application Topical UD as directed 07/13/19 No Stop Date Active Ozempic 1 mg/dose (4 mg/3 mL) subcutaneous pen injector RxNorm: 7887770 Inject 1 Milligram(s) Subcutaneous QW once a week 07/13/19 No Stop Date Active Guaifenesin AC 10 mg-100 mg/5 mL oral liquid RxNorm: 264899 Take 10 Milliliter(s) Oral Q4H every four hours as needed 07/13/19 No Stop Date Active hydrocortisone 2.5 % topical cream RxNorm: 485723 Apply 1 Application Topical BID as needed 07/13/19 No Stop Date Active rosuvastatin 40 mg tablet RxNorm: 184184 Take 1 Tablet(s) Oral QPM every evening 07/13/19 024 Inactive ezetimibe 10 mg tablet RxNorm: 461570 Take 1 Tablet(s) Oral QD 07/13/19 24 025 Inactive polyethylene glycol 3350 17 gram/dose oral powder RxNorm: 631493 Take 17 Gram(s) Oral BID as needed mix in 4-8ox water 07/13/19 24 025 Inactive aripiprazole 15 mg tablet RxNorm: 787414 Take 1/2 Tablet(s) Oral QD 07/13/19 24 024 Inactive isosorbide mononitrate ER 60 mg tablet,extended release 24 hr RxNorm: 867918 Take 1 Tablet(s) Oral QD 07/13/19 24 024 Inactive ammonium lactate 12 % topical cream RxNorm: 186575 Apply 1 Application Topical BID 07/13/19 24 025 Inactive rosuvastatin 20 mg sprinkle capsule RxNorm: 1732693 Take 1 Capsule(s) Oral QD 07/13/19 24 025 Inactive Vascepa 1 gram capsule RxNorm: 1333768 Take 2 Capsule(s) Oral BID 07/13/19 24 024 Inactive venlafaxine ER 75 mg capsule,extended release 24 hr RxNorm: 476550 Take 3 Capsule(s) Oral QD 07/13/19 24 024 Inactive Basaglar ZaPen U-100 Insulin 100 unit/mL (3 mL) subcutaneous RxNorm: 4521315 Inject 30U SubQ twice daily 07/07/19 24 024 Inactive Please dispense one month supply. Basaglar KwikPen U-100 Insulin 100 unit/mL (3 mL) subcutaneous RxNorm: 0790222 Inject 30U SubQ twice daily 07/07/19 24 024 Inactive Please dispense one month supply. pregabalin 150 mg capsule RxNorm: 769649 Take 1 Capsule(s) Oral QHS every night at bedtime 07/05/19 24 024 Inactive pregabalin 150 mg capsule RxNorm: 260363 Take 1 Capsule(s) Oral QHS every night at bedtime 07/05/19 24 024 Inactive polyethylene glycol 3350 17 gram/dose oral powder RxNorm: 705434 Take 1 Packet Oral QD as needed (1 packet = 17g) mix with 4-8oz of liquid 06/15/19 24 024 Inactive bisacodyl 10 mg rectal suppository RxNorm: 599075 Insert one suppository per rectum once daily as needed for constipation 06/15/19 24 024 Inactive bisacodyl 10 mg rectal suppository RxNorm: 684421 Insert one suppository per rectum once daily as needed for constipation 06/15/19 24 024 Inactive pregabalin 100 mg capsule RxNorm: 365477 Take 1 Capsule(s) Oral QAM every morning 04/27/20 23 024 Inactive Levemir FlexPen 100 unit/mL (3 mL) solution subcutaneous insulin pen RxNorm: 960465 Inject 30 Unit(s) Subcutaneous BID 04/27/20 23 024 Inactive rosuvastatin 40 mg tablet RxNorm: 693026 Take 1 Tablet(s) Oral QPM every evening 04/16/20 23 024 Inactive D/C rosuvastatin 20mg venlafaxine ER 75 mg capsule,extended release 24 hr RxNorm: 001007 Take 3 Capsule(s) Oral QD 04/14/20 23 023 Inactive pregabalin 100 mg capsule RxNorm: 219368 Take 1 Capsule(s) Oral QAM every morning [...] strip clotrimazole 1 % topical cream RxNorm: 290971 Take apply topically to abdominal folds twice daily for 14 days 03/12/20 23 024 Inactive Ozempic 1 mg/dose (4 mg/3 mL) subcutaneous pen injector RxNorm: 2383185 Inject 1 Milligram(s) Subcutaneous QW once a week 03/11/20 023 Inactive rosuvastatin 20 mg tablet RxNorm: 179625 Take 1 Tablet(s) Oral QD 02/26/20 23 023 Inactive d/c pravastatin 80mg Ozempic 1 mg/dose (4 mg/3 mL) subcutaneous pen injector RxNorm: 3679925 Inject 1 Milligram(s) Subcutaneous QW once a week 02/20/20 23 023 Inactive pregabalin 150 mg capsule RxNorm: 213529 Take 1 Capsule(s) Oral HS at bed time 02/19/20 23 023 Inactive pregabalin 100 mg capsule RxNorm: 292780 Take 1 Capsule(s) Oral QAM every morning 02/18/20 23 023 Inactive venlafaxine ER 75 mg capsule,extended release 24 hr RxNorm: 501846 Take 3 Capsule(s) Oral QD 02/04/20 23 023 Inactive FreeStyle Chema 2 Sensor kit RxNorm: use as directed 02/04/20 23 023 Inactive FreeStyle Chema 2 Sensor kit RxNorm: use as directed 02/04/20 23 024 Inactive fluconazole 150 mg tablet RxNorm: 989442 Take 1 Tablet(s) Oral on day 3 and on day 6 02/03/20 23 024 Inactive venlafaxine ER 150 mg capsule,extended release 24 hr RxNorm: 756265 Take 1 Capsule(s) Oral QD 02/03/20 23 023 Inactive chlorthalidone 25 mg tablet RxNorm: 852787 Take 1 Tablet(s) Oral QAM every morning 02/03/20 23 024 Inactive acetaminophen 500 mg tablet RxNorm: 345881 1 TABLET ORALLY 3 TIMES DAILY (MAX APAP:4GM/24HR) 12/15/19 23 023 Inactive potassium chloride ER 20 mEq tablet,extended release RxNorm: 152862 Take 1 Tablet(s) Oral BID 12/09/19 024 Inactive d/c 20mEq once daily (sent from hospital) clotrimazole 1 % topical cream RxNorm: 522379 apply 1g topically to top of feet and in between toes BID 12/09/19 23 025 Inactive nystatin 100,000 unit/gram topical powder RxNorm: 074628 APPLY TO AFFECTED AREAS TOPICALLY 2 TIMES DAILY 11/21/19 23 023 Inactive Nystop 100,000 unit/gram topical powder RxNorm: 258071 Apply to abd folds, under breasts and L side of groin Topical BID x 14 days, then BID PRN 11/20/19 023 Inactive dx: yeast dermatitis [place] Ultra Strength 4 %-30 %-10 % topical cream RxNorm: 999667 Apply 1 Gram(s) Topical QID PRN to feet and legs for neuropathic pain 11/11/19 024 Inactive clotrimazole 1 % topical cream RxNorm: 328529 Apply 1/2 Gram(s) Topical BID Apply to affected areas of groin, periarea, and abdominal topically 2 times daily 11/10/19 23 023 Inactive hydrocortisone 2.5 % topical cream RxNorm: 605926 Apply 1/2 Gram(s) Topical BID as needed 11/10/19 23 024 Inactive Levemir FlexPen 100 unit/mL (3 mL) solution subcutaneous insulin pen RxNorm: 017899 Inject 30 Unit(s) Subcutaneous BID 10/07/19 23 023 Inactive Humulin R U-500 (Concentrated) Insulin 500 unit/mL subcutaneous soln RxNorm: 882188 Inject 100 Unit(s) Subcutaneous TID 10/07/19 024 Inactive Ozempic 0.25 mg or 0.5 mg (2 mg/3 mL) subcutaneous pen injector RxNorm: 1123047 Inject 1/2 Milligram(s) Subcutaneous QW once a week 10/07/19 024 Inactive aripiprazole 15 mg tablet RxNorm: 777264 1/2 TAB (7.5MG) ORALLY DAILY (DX:MAJOR DEPRESSIVE DISORDER) 09/23/19 023 Inactive Accu-Chek Guide test strips RxNorm: Use 1 Test Strip QID 09/15/19 023 Inactive ok to substitute with any covered alternative test strip Lancets,Thin 28 gauge RxNorm: Use 1 as directed QID 09/15/19 023 Inactive torsemide 20 mg tablet RxNorm: 730477 Take 1 Tablet(s) Oral BID 09/09/19 024 Inactive d/c once daily dosing carvedilol 25 mg tablet RxNorm: 988141 Take 1 Tablet(s) Oral QD 08/25/19 23 024 Inactive pregabalin 150 mg capsule RxNorm: 098605 1 Capsule(s) Oral HS at bed time 08/18/19 023 Inactive pregabalin 100 mg capsule RxNorm: 916244 1 Capsule(s) Oral QAM every morning 08/18/19 023 Inactive carvedilol 25 mg tablet RxNorm: 992928 1 Tablet(s) Oral QD 07/28/19 023 Inactive lisinopril 20 mg tablet RxNorm: 879579 Give 1 Tablet(s) Oral QD 07/28/19 23 023 Inactive Lyrica 150 mg capsule RxNorm: 909287 Take 1 Capsule(s) Oral QHS every night at bedtime 07/19/19 023 Inactive d/c 100mg dose Diflucan 150 mg tablet RxNorm: 942008 Take 1 Tablet(s) Oral QD repeat on day 3 and 6 07/19/19 23 023 Inactive pregabalin 100 mg capsule RxNorm: 881656 Take 1 Capsule(s) Oral QAM every morning 07/19/19 23 023 Inactive gatifloxacin 0.5 % eye drops RxNorm: 027075 Instill 1 Drop(s) as directed TID Instill 1 drop in to affected eye(s) starting 1 day prior to surgery and continue until gone (do not exceed 4 weeks). 07/13/19 23 023 Inactive carvedilol 25 mg tablet RxNorm: 721524 2 Tablet(s) Oral BID 07/13/19 23 023 Inactive Humulin R Regular U-100 Insulin 100 unit/mL injection solution RxNorm: 752691 85 Unit(s) Injection TID 07/13/19 23 023 Inactive ketorolac 0.5 % eye drops RxNorm: 257722 Instill 1 Drop(s) as directed QID Instill 1 drop into affected eye(s) 4 times daily starting 1 day prior to surgery and continue until gone (do not exceed 4 weeks). 07/13/19 023 Inactive Diflucan 150 mg tablet RxNorm: 961735 Take 1 Tablet(s) Oral QD repeat on day 3 and 6 06/30/19 23 023 Inactive Accu-Chek Guide test strips RxNorm: Use 1 Test Strip QID Use 1 test strip to monitor blood glucose 4 times daily and as needed. Dx:E11.42. 06/23/19 23 023 Inactive ok to substitute with any covered alternative test strip dextromethorphan-gu aifenesin 10 mg-100 mg/5 mL oral liquid RxNorm: 481803 Take 10 Milliliter(s) Oral every 4 hours as needed for cough 06/19/19 23 023 Inactive dextromethorphan-gu aifenesin 10 mg-100 mg/5 mL oral liquid RxNorm: 813712 Take 10 Milliliter(s) Oral every 4 hours as needed for cough 06/19/19 23 023 Inactive Lyrica 150 mg capsule RxNorm: 987251 Take 1 Capsule(s) Oral QHS every night at bedtime 06/18/19 23 023 Inactive d/c 100mg dose aripiprazole 15 mg tablet RxNorm: 972651 /2 TAB (7.5MG) ORALLY DAILY (DX:MAJOR DEPRESSIVE DISORDER) 06/05/19 023 Inactive pregabalin 100 mg capsule RxNorm: 415399 1 Capsule(s) Oral QAM every morning 06/02/19 023 Inactive Banophen 50 mg capsule RxNorm: 3416530 Take 1 Capsule(s) Oral Q6H every 6 hours as needed 05/19/19 23 No Stop Date Active Novolog Flexpen U-100 Insulin aspart 100 unit/mL (3 mL) subcutaneous RxNorm: 2090875 Inject 10 Unit(s) Subcutaneous QHS every night at bedtime with nighttime snack 04/08/20 022 Inactive Novolog Flexpen U-100 Insulin aspart 100 unit/mL (3 mL) subcutaneous RxNorm: 5076311 Inject 42 Unit(s) Subcutaneous TID in addition to sliding scale 04/08/20 022 Inactive d/c 36u albuterol sulfate HFA 90 mcg/actuation aerosol inhaler RxNorm: 4579227 Take 2 Puff(s) Inhalation Q4H every four hours as needed as needed for SOB, cough, or wheezing 04/07/20 030 Active Banophen 50 mg capsule RxNorm: 0454644 Take 1 Capsule(s) Oral Q6H every 6 hours as needed 04/06/20 023 Inactive diphenhydramine 50 mg tablet RxNorm: 2645947 Take 1 Tablet(s) Oral Q6H every 6 hours as needed 04/06/20 22 022 Inactive diphenhydramine 50 mg tablet RxNorm: 4473640 1 Tablet(s) Oral Q6H every 6 hours as needed 04/06/20 22 022 Inactive Abilify 15 mg tablet RxNorm: 359572 1/2 Tablet(s) Oral QD 03/10/20 22 023 Inactive Shingrix (PF) 50 mcg/0.5 mL intramuscular suspension, kit RxNorm: 5697756 Administer 1/2 Milliliter(s) Intramuscular QD one time shingrix step 2 ( step 1 given 11/04/21) WITH needle - Nursing please administer upon arrival and once administered post a bridge message with date of administration, community nutrition educator, expiration date, and lot# so we can update [facility] 02/18/20 22 022 Inactive dispense with needle Shingrix (PF) 50 mcg/0.5 mL intramuscular suspension, kit RxNorm: 7954810 Administer 1/2 Milliliter(s) Intramuscular QD one time shingrix step 2 ( step 1 given 11/04/21) WITH needle - Nursing please administer upon arrival and once administered post a bridge message with date of administration, community nutrition educator, expiration date, and lot# so we can update [facility] 02/18/20 22 022 Inactive dispense with needle Lyrica 100 mg capsule RxNorm: 930933 Take 1 Capsule(s) Oral QAM every morning 01/08/20 22 022 Inactive d/c 50mg dose acetaminophen 500 mg tablet RxNorm: 143467 Take 1 Tablet(s) Oral TID 01/08/20 22 022 Inactive d/c PRN order Lyrica 150 mg capsule RxNorm: 401643 Take 1 Capsule(s) Oral QHS every night at bedtime 01/08/20 22 023 Inactive d/c 100mg dose polyethylene glycol 3350 17 gram/dose oral powder RxNorm: 949804 Take 17=1 capful Gram(s) Oral QD mix with 4-8oz of liquid 01/08/20 22 025 Inactive take this in addition to BID prn order Abilify 5 mg tablet RxNorm: 271682 Take 1 Tablet(s) Oral QD take 1 tab po QD #30 refill 5 dx: MDD 12/12/19 22 022 Inactive Abilify 5 mg tablet RxNorm: 152531 Take 1 Tablet(s) Oral QD take 1 tab po QD #30 refill 5 dx: MDD 12/12/19 22 022 Inactive Novolog Flexpen U-100 Insulin aspart 100 unit/mL (3 mL) subcutaneous RxNorm: 5312545 Inject 42 Unit(s) Subcutaneous TID in addition to sliding scale 12/10/19 22 022 Inactive d/c 36u chlorthalidone 25 mg tablet RxNorm: 169353 Take 1 Tablet(s) Oral QAM every morning 12/10/19 22 023 Inactive pregabalin 50 mg capsule RxNorm: 285507 Take 1 Capsule(s) Oral QAM every morning 11/12/19 22 022 Inactive tetanus-diphtheria toxoids-Td 2 Lf unit-2 Lf unit/0.5 mL IM suspension RxNorm: 139 Take 0.5 Miscellaneous Intramuscular 11/12/19 22 022 Inactive need tdap - nursing to administer upon arrival pregabalin 50 mg capsule RxNorm: 820509 Take 1 Capsule(s) Oral QAM every morning 10/16/19 22 022 Inactive pregabalin 50 mg capsule RxNorm: 375243 Take 1 Capsule(s) Oral QAM every morning 10/16/19 22 022 Inactive pregabalin 50 mg capsule RxNorm: 761606 1 Capsule(s) Oral QAM every morning 10/15/19 22 022 Inactive Shingrix (PF) 50 mcg/0.5 mL intramuscular suspension, kit RxNorm: 9304908 Administer 1/2 Milliliter(s) Intramuscular one time Nursing please administer upon arrival and once administered post a bridge message with date of administration, community nutrition educator, expiration date, and lot# so we can update [facility]. 10/09/19 22 022 Inactive shingrix step 1 Shingrix (PF) 50 mcg/0.5 mL intramuscular suspension, kit RxNorm: 6053441 Administer 1/2 Milliliter(s) Intramuscular one time Nursing please administer upon arrival and once administered post a bridge message with date of administration, community nutrition educator, expiration date, and lot# so we can [...] aspart 100 unit/mL (3 mL) subcutaneous RxNorm: 4968952 Inject 10 Unit(s) Subcutaneous QHS every night at bedtime with nighttime snack 10/08/19 22 022 Inactive Shingrix (PF) 50 mcg/0.5 mL intramuscular suspension, kit RxNorm: 8517383 ADMINISTER 2-DOSE SERIES PER CDC GUIDELINES 10/08/19 22 Active Shingrix (PF) 50 mcg/0.5 mL intramuscular suspension, kit RxNorm: 4132891 ADMINISTER 2-DOSE SERIES PER CDC GUIDELINES 10/08/19 22 Inactive Novolog Flexpen U-100 Insulin aspart 100 unit/mL (3 mL) subcutaneous RxNorm: 6139211 Inject 36 Unit(s) Subcutaneous TID in addition to sliding scale 10/08/19 Inactive cholecalciferol (vitamin D3) 1,250 mcg (50,000 unit) capsule RxNorm: 469031 Take 1 Capsule(s) Oral QW once a week 10/08/19 024 Inactive Novofine Autocover 30 gauge x 1/3 needle RxNorm: Use 1 Miscellaneous UD as directed Use 1 needle as directed to administer insulin 5 times a day Dx:E11.42. 10/03/19 22 022 Inactive ok to substitute with any covered alternative pen needle benzoyl peroxide 10 % topical cleanser RxNorm: 498562 Apply 1 Application Topical QD apply to face, wash rinse and dry once daily (may change to QOD if drying) 08/19/19 22 022 Inactive (%covered by insurance) #60ml refill 11 dx: acne benzoyl peroxide 10 % topical cleanser RxNorm: 798148 Apply 1 Application Topical QD apply to face, wash rinse and dry once daily (may change to QOD if drying) 08/19/19 22 022 Inactive (%covered by insurance) #60ml refill 11 dx: acne benzoyl peroxide 10 % topical cleanser RxNorm: 911779 Apply 1 Application Topical QD apply to face, wash rinse and dry once daily (may change to QOD if drying) 08/19/19 22 022 Inactive (%covered by insurance) #60ml refill 11 dx: acne Lyrica 50 mg capsule RxNorm: 540682 Take 1 Capsule(s) Oral QAM every morning Take 1 capsule by mouth once daily 08/19/19 22 022 Inactive benzoyl peroxide 10 % topical cleanser RxNorm: 846221 Apply 1 Application Topical QD apply to face, wash rinse and dry once daily (may change to QOD if drying) 08/19/19 22 022 Inactive (%covered by insurance) #60ml refill 11 dx: acne Lyrica 100 mg capsule RxNorm: 663104 Take 1 Capsule(s) Oral QHS every night at bedtime Take 1 capsule by mouth once daily at bedtime 08/19/19 22 022 Inactive Lyrica 100 mg capsule RxNorm: 093670 Take 1 Capsule(s) Oral QHS every night at bedtime Take 1 capsule by mouth once daily at bedtime 08/16/19 22 022 Inactive Lyrica 50 mg capsule RxNorm: 186770 Take 1 Capsule(s) Oral QAM every morning Take 1 capsule by mouth once daily 08/16/19 22 022 Inactive Levemir FlexTouch U-100 Insulin 100 unit/mL (3 mL) subcutaneous pen RxNorm: 619010 Inject 86 Unit(s) Subcutaneous BID 08/05/19 22 022 Inactive d/c 83units BID Lyrica 100 mg capsule RxNorm: 670356 Take 1 Capsule(s) Oral QHS every night at bedtime Take 1 capsule by mouth once daily at bedtime 07/14/19 22 022 Inactive Lyrica 50 mg capsule RxNorm: 931944 Take 1 Capsule(s) Oral QAM every morning Take 1 capsule by mouth once daily 07/14/19 22 022 Inactive Levemir FlexTouch U-100 Insulin 100 unit/mL (3 mL) subcutaneous pen RxNorm: 649386 Inject 83 Unit(s) Subcutaneous BID 07/08/19 22 [...] test strip hydralazine 50 mg tablet RxNorm: 906637 Take 1 Tablet(s) Oral QID 05/05/20 21 022 Inactive venlafaxine ER 225 mg tablet,extended release 24 hr RxNorm: 697828 Take 1 Tablet(s) Oral QD 05/05/20 21 021 Inactive venlafaxine ER 225 mg tablet,extended release 24 hr RxNorm: 689839 Take 1 Tablet(s) Oral QD 05/05/20 21 022 Inactive isosorbide mononitrate ER 30 mg tablet,extended release 24 hr RxNorm: 928106 Take 1 Tablet(s) Oral QD 05/05/20 024 Inactive hydralazine 50 mg tablet RxNorm: 625822 Take 1 Tablet(s) Oral QID 05/05/20 21 021 Inactive aspirin 81 mg tablet,delayed release RxNorm: 875846 Take 1 Tablet(s) Oral QD 03/31/20 022 Inactive Vitamin D2 1,250 mcg (50,000 unit) capsule RxNorm: 1424870 Take 1 Capsule(s) Oral QW once a week x 12 weeks 03/31/20 022 Inactive Vitamin D2 1,250 mcg (50,000 unit) capsule RxNorm: 0228160 Take 1 Capsule(s) Oral QW once a week 03/31/20 021 Inactive Zetia 10 mg tablet RxNorm: 846073 Take 1 Tablet(s) Oral QD 03/31/20 024 Inactive Zetia 10 mg tablet RxNorm: 271047 Take 1 Tablet(s) Oral QD 03/31/20 021 Inactive hydralazine 25 mg tablet RxNorm: 039614 Take 1 Tablet(s) Oral QID 03/31/20 21 021 Inactive hydralazine 25 mg tablet RxNorm: 068600 Take 1 Tablet(s) Oral QID 03/31/20 021 Inactive hydralazine 10 mg tablet RxNorm: 462594 Take 1 Tablet(s) Oral QID 03/03/20 021 Inactive cephalexin 500 mg tablet RxNorm: 786361 Take 1 Tablet(s) Oral QID 02/27/20 21 021 Inactive cephalexin 500 mg tablet RxNorm: 957257 Take 1 Tablet(s) Oral QID 02/27/20 21 021 Inactive lisinopril 40 mg tablet RxNorm: 281484 Take 1 Tablet(s) Oral QD 02/11/20 21 023 Inactive Eliquis 5 mg tablet RxNorm: 6635883 Take 1 Tablet(s) Oral BID 01/05/20 21 02/03/2 025 Inactive Eliquis 5 mg tablet RxNorm: 5415534 Take 2 Tablet(s) Oral QD 01/01/20 21 021 Inactive Lyrica 50 mg capsule RxNorm: 778337 Take 1 Capsule(s) Oral QAM every morning 12/24/19 21 021 Inactive Lyrica 100 mg capsule RxNorm: 628880 Take 1 Capsule(s) Oral QHS every night at bedtime 12/24/19 21 021 Inactive clotrimazole 1 % topical cream RxNorm: 199673 Apply to right foot and toes Topical BID 12/04/19 21 023 Inactive metoprolol succinate ER 200 mg tablet,extended release 24 hr RxNorm: 761688 Take 1 Tablet(s) Oral QD 12/04/19 21 023 Inactive ciprofloxacin 500 mg tablet RxNorm: 707392 Take 1 Tablet(s) Oral QD 11/30/19 21 021 Inactive DX ofloxacin otic drops Accu-Chek Guide test strips RxNorm: USE 1 TO CHECK GLUCOSE 4 TIMES DAILY AND NEEDED 11/15/19 21 023 Inactive Blood Glucose Test strips RxNorm: Use 1 Test Strip QID at PRN 11/05/19 21 023 Inactive E11.42 lisinopril 30 mg tablet RxNorm: 734743 Take 1 Tablet(s) Oral QD 10/30/19 021 Inactive lisinopril 20 mg tablet RxNorm: 553001 Take 1 Tablet(s) Oral QD 10/23/19 21 021 Inactive lisinopril 20 mg tablet RxNorm: 380646 Take 1 Tablet(s) Oral QD 10/23/19 21 021 Inactive lisinopril 10 mg tablet RxNorm: 933277 Take 1 Tablet(s) Oral QD 10/02/19 21 021 Inactive icosapent ethyl 1 gram capsule RxNorm: 4575260 Take 2 Capsule(s) (2 gm) Oral BID with meals 09/12/19 21 024 Inactive Okay to dispense one 2gm tab if you have that available. icosapent ethyl 1 gram capsule RxNorm: 6748786 Take 2 Capsule(s) Oral BID 09/12/19 21 021 Inactive Okay to dispense one 2gm tab if you have that available. amlodipine 10 mg tablet RxNorm: 415082 Take 1 Tablet(s) Oral QD 09/04/19 21 021 Inactive aspirin 81 mg tablet,delayed release RxNorm: 010788 Take 1 Tablet(s) Oral QD 09/04/19 21 021 Inactive Levemir FlexTouch U-100 Insulin 100 unit/mL (3 mL) subcutaneous pen RxNorm: 926356 Inject 150 Unit(s) Subcutaneous BID 09/04/19 21 022 Inactive venlafaxine ER 150 mg tablet,extended release 24 hr RxNorm: 166697 Take 1 Tablet(s) Oral QD 09/04/19 21 021 Inactive clotrimazole-betame thasone 1 %-0.05 % topical cream RxNorm: 425450 Apply to rash on red area on left abdomen/chest Topical BID 08/10/19 21 021 Inactive amlodipine 5 mg tablet RxNorm: 709347 Take 1 Tablet(s) Oral QD 07/31/19 21 021 Inactive cephalexin 500 mg tablet RxNorm: 418185 Take 1 Tablet(s) Oral BID BID - Twice Daily 07/31/19 21 021 Inactive Start 08/01/20 pantoprazole 40 mg tablet,delayed release RxNorm: 497860 Take 1 Tablet(s) Oral QAM every morning 07/08/19 21 025 Inactive clopidogrel 75 mg tablet RxNorm: 060467 Take 1 Tablet(s) Oral QD 07/08/19 21 021 Inactive Blood Glucose Test strips RxNorm: Use 1 Test Strip QID at PRN 07/08/19 21 021 Inactive E11.42 senna 8.6 mg tablet RxNorm: 928222 Take 1 Tablet(s) Oral QD 07/08/19 21 025 Inactive Novolog Flexpen U-100 Insulin aspart 100 unit/mL (3 mL) subcutaneous RxNorm: 7041790 Administer per sliding scale Milliliter(s) Subcutaneous TID 151-200: 10 u; 201-250: 20 u; 251-300: 30 u; 301-350: 40 u; 351-400: 50 u. 07/08/19 21 022 Inactive lisinopril 5 mg tablet RxNorm: 689002 Take 1 Tablet(s) Oral QD 07/08/19 021 Inactive Novolog Flexpen U-100 Insulin aspart 100 unit/mL (3 mL) subcutaneous RxNorm: 7622741 Inject 85 Unit(s) Subcutaneous TID 07/08/19 022 Inactive pravastatin 80 mg tablet RxNorm: 434538 Take 1 Tablet(s) Oral QHS every night at bedtime 07/08/19 023 Inactive clotrimazole 1 % topical cream RxNorm: 150688 Apply to bilateral groin areas Topical BID 07/08/19 022 Inactive metoprolol succinate ER 200 mg tablet,extended release 24 hr RxNorm: 313903 Take 1 Tablet(s) Oral QD 07/08/19 021 Inactive Vitamin D3 25 mcg (1,000 unit) tablet RxNorm: 175731 Take 1 Tablet(s) Oral QD 07/08/19 021 Inactive isosorbide dinitrate 30 mg tablet RxNorm: 320521 Take 1 Tablet(s) Oral QD 07/08/19 021 Inactive carbamazepine 200 mg tablet RxNorm: 468855 Take 1 Tablet(s) Oral BID 07/08/19 025 Inactive Levemir FlexTouch U-100 Insulin 100 unit/mL (3 mL) subcutaneous pen RxNorm: 461447 Inject 140 Unit(s) Subcutaneous BID 07/08/19 021 Inactive torsemide 20 mg tablet RxNorm: 515741 Take 1 Tablet(s) Oral QD 07/08/19 023 Inactive venlafaxine 75 mg tablet RxNorm: 283030 Take 1 Tablet(s) Oral QD 07/08/19 021 Inactive acetaminophen 500 mg tablet RxNorm: 533418 Take 1 Tablet(s) Oral TID as needed for headache 06/18/19 021 Inactive acetaminophen 500 mg tablet RxNorm: 380489 Take 1 Tablet(s) Oral TID as needed for headache 06/18/19 21 021 Inactive Lyrica 100 mg capsule RxNorm: 570726 Take 1 Capsule(s) Oral QHS every night at bedtime 06/11/19 21 021 Inactive Lyrica 50 mg capsule RxNorm: 626122 Take 1 Capsule(s) Oral QAM every morning 06/10/19 21 021 Inactive hydrocortisone 2.5 % topical cream RxNorm: 205067 Apply to bilateral groin creases Topical BID 05/15/20 20 021 Inactive clotrimazole 1 % topical cream RxNorm: 713110 Apply to bilateral groin areas Topical BID 05/15/20 20 021 Inactive Lyrica 50 mg capsule RxNorm: 856748 Take 1 Capsule(s) Oral QAM every morning 05/14/20 20 020 Inactive Lyrica 100 mg capsule RxNorm: 108652 Take 1 Capsule(s) Oral QHS every night [...] Inactive Nystop 100,000 unit/gram topical powder RxNorm: 331065 Apply to abd folds, under breasts and L side of groin Topical BID x 14 days, then BID PRN 04/08/20 20 11/23/2 020 Inactive dx: yeast dermatitis Lyrica 100 mg capsule RxNorm: 785345 Take 1 Capsule(s) Oral QHS every night at bedtime 03/13/20 20 Inactive Lyrica 50 mg capsule RxNorm: 678256 Take 1 Capsule(s) Oral QAM every morning 03/13/20 20 Inactive ketoconazole 2 % shampoo RxNorm: 215050 Apply Topical two times a week with showers 03/11/20 Inactive cholecalciferol (vitamin D3) 50 mcg (2,000 unit) tablet RxNorm: 311677 Take 1 Tablet(s) Oral QD 03/11/20 20 Inactive Zetia 10 mg tablet RxNorm: 813054 Take 1 Tablet(s) Oral QD 03/07/20 20 Inactive Zetia 10 mg tablet RxNorm: 590622 Take 1 Tablet(s) Oral QD 03/07/20 20 Inactive Lyrica 50 mg capsule RxNorm: 114707 Take 1 Capsule(s) Oral QAM every morning 02/15/20 20 Inactive Lyrica 100 mg capsule RxNorm: 979171 Take 1 Capsule(s) Oral QHS every night at bedtime 02/15/20 Inactive Lyrica 100 mg capsule RxNorm: 877072 Take 1 Capsule(s) Oral QHS every night at bedtime 02/15/20 20 Inactive Lyrica 50 mg capsule RxNorm: 942230 Take 1 Capsule(s) Oral QAM every morning 02/15/20 20 Inactive venlafaxine ER 75 mg capsule,extended release 24 hr RxNorm: 676005 Take 3 Capsule(s) Oral QD 06/12/19 023 Inactive polyethylene glycol 3350 17 gram/dose oral powder RxNorm: 376346 Take 17=1 capful Gram(s) Oral BID as needed mix with 4-8oz of liquid 06/12/19 22 024 Inactive icosapent ethyl 1 gram capsule RxNorm: 9350999 Take 2 Capsule(s) (2 gm) Oral BID with meals 10/07/19 23 023 Inactive Okay to dispense one 2gm tab if you have that available. Levemir FlexTouch U-100 Insulin 100 unit/mL (3 mL) subcutaneous pen RxNorm: 576573 Inject 80 Unit(s) Subcutaneous BID 07/14/19 23 023 Inactive metoprolol succinate ER 200 mg tablet,extended release 24 hr RxNorm: 255528 Take 1 Tablet(s) Oral QD 08/12/19 025 Inactive loperamide 2 mg capsule RxNorm: 807446 Take 1 Capsule(s) Oral QID as needed 09/06/19 025 Inactive hydralazine 50 mg tablet RxNorm: 820763 Take 1 Tablet(s) Oral QID 08/12/19 025 Inactive Soft Touch Lancets RxNorm: miscellaneous 03/04/20 24 025 Inactive Novolog Flexpen U-100 Insulin aspart 100 unit/mL (3 mL) subcutaneous RxNorm: 7184655 Insert 30 Unit(s) Subcutaneous TID with meals [...] Item Code Result Date S ervice Location PHQ9 PHQ9 91838-6 5 10/10/2024 Unknown Procedures Procedure Codes Date Toenail Debridement CPT-4: 94562 10/10/2024 HEMOGLOBIN A1C LEVEL >9.0% CPT-4: 3046F 10/10 SYS BP LESS 140 CPT-4: G8752 10/10/2024 CUI BP LESS 90 CPT-4: G8754 10/10/2024 POS CLIN DEPRES SCRN F/U DOC SNOMED CT: 12987326 CPT-4: X71095310/10/2024 Vital Signs Date Vital 10/10/2024 Blood Pressure 1: 136/76 Code: 8480-6 BMI: NaN Code: 53515-4 Heart Rate 1: 88 bpm Code: 8867-4 Height: 5'6 Code: 8302-2 SpO2: 94% Temperature: 37.0 (C) / 98.6 (F) Functional Status Functional / Cognitive Codes [...] Performer Location Location Address Codes Cristiano e ([id number]) Home Visit - Est Pt, moderate Diagnosis: Hypokalemia[ICD10: E87.6] Diagnosis: Lower extremity edema[ICD10: R60.0] Diagnosis: Stage 2 chronic 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[ICD10: E11.22] Diagnosis: Type 2 diabetes mellitus with diabetic polyneuropathy, with long-term current use of insulin[ICD10: E11.42] Diagnosis: Pulmonary nodule[SNOMED: 496816918] Diagnosis: Amputated toe of right foot[ICD10: S98.131A] Diagnosis: Hypercoagulable state[ICD10: D68.59] Diagnosis: Major depression, recurrent[ICD10: F33.9] Diagnosis: Onychogryposis[ICD10: L60.2] Diagnosis: Recurrent major depressive disorder, in partial remission[ICD10: F33.41]Harrison MunsonThe Paron on [id number] [place] [address] CPT-4: 2165239/ Plan of Care Planned Activity Notes Codes Status Date Referral: [facility] Radiology/Imaging WPtel: [address] [facility] USReferralAppointment Mhsdienbs77/06/2025Patient Education: Patient Medication YbhnhcsEiztlmkhq25/27/2025Patient Education: JfyvyuvvrFbjvyjekd19/27/2025 Appointment: Harrison Munson WPtel: [address] [place], [place] [id number] [place]/U008/08/2024ppointment: Hrarison Munson WPtel: [address] [place], [place] [phone] [facility]/07/11/2024Referral: [facility]/Endocrinology WPtel: [address] [facility] 3 [id number] USReferralNo Records Mwrkntie91/24/2025ppointment: Harrison Munson WPtel: [address] [place], [place] [phone] [facility]02/08/2024ppointment: Harrison Munson WPtel: [address] [place]/U001/11/2024ppointment: Sandra Clark WPtel: [address] [place], [place] [phone] [facility] Psych Follow Up12/09/2022ppointment: Casper Tapan WPtel: [address] [facility] [address] [id number] USTCM10/26/2022Referral: [facility] WPtel: [address] , [address] [id number] USReferralRecords Xfihptbu01/08/2023ppointment: Tapan Shirley WPtel: [address] [facility] [address] [id number] USF/U008/11/2022ppointment: Tapan Shirley WPtel: [address] [facility] [address] [id number] USF/U007/14/2022ppointment: Tapan Shirley WPtel: [address] [facility] [address] [id number] USF/U02Referral: [facility] WPtel: [address] [id number] WZAdurmkhdAlvdrlcbb24/12/2022Referral: General CardiologyReferralCompleted 1Referral: General PsychologistReferralClosedReferral: General PsychiatristReferralPatient/Family [...] Sister Jyotsna involved in his care cell# [phone] Guardian: Giulia (tapan met in person 09/01/21), [...] appointment 05.26.2024 with Jessa Webster MD at [facility]. Start Pioglitazone 15 mg QD. Stop Basaglar insulin. Increase Ozempic 2 mg once wkly. Continue Humalin R U-500 100 units with meals TID. FOLLOW UP 2 MONTHS. If BG >400 add 50 units to next scheduled dose of Humalin R U 500 insulin 06/12/2024 Hypokalemia Lab work resulted since last visit.?? Discussed today with Leonid.?? 09.08.2024: BMP Na 141. K 3.0L. Creatinine 1.0. eGFR 84. Ca 9.0. BG 238H. A1c 9.8%. Increased potassium supplementation from BID to TID?? Today will order serum potassium recheck.?? Hypercoagulable state Chronic Moniotr for S&S thrombus formation No S&S present otday Continue Eliquis and Apsirin?? PCP has to trim toenails due to anticaogulation use - trimming completed today with no immediate complications Stage 2 chronic 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 Chronic We monitor BMP every 3 months 09.08.2024: BMP Na 141. K 3.0L. Creatinine 1.0. eGFR 84. Ca 9.0. BG 238H. A1c 9.8%. (Increased potassium supplementation from BID to TID) Today will order potassium lab work for follow up.?? Control BP as appropriate for age, risk for falls, and life expectancy. Avoid nephrotoxic medications. Renal dose medications as appropriate. Lower extremity edema Chronic Nonpitting Wears compression socks daily - knee high - staff assist with placement?? Was taking Torsemide QD and Potassium supplementation BID although recent () low potassium level.?? Currently taking torsemide QD and Potassium TID now.?? Today will re-order potassium lab work for follow up?? Encouraged proper hygiene and daily monitoring of skin integrity Major depression, recurrent Chronic depression PHQ today with a score of 5 [facility]?? Encouraged to get out of his bedroom and socialize Encouraged to go outside for fresh air?? Leonid chooses to spend his days in his bedroom sitting in his recliner which greatly limited human interactions.?? Continue Abilify 7.5 mg QD and Venlafaxine 225 mg QD.?? Onychogryposis Toenails trimmed today - discussed in HPI and PE.?? Type 2 diabetes mellitus with diabetic polyneuropathy, with long-term current use of insulin Endocrinology appointment 05.26.2024 with Jessa Webster MD at [facility]. Started Pioglitazone 15 mg QD. Stop Basaglar insulin. ??Increase Ozempic 2 mg once wkly. Continue Humalin R U-500 100 units with meals TID. FOLLOW UP 2 MONTHS. If BG >400 add 50 units to nextscheduled dose of Humalin R U 500 insulin. Continue close follow up with new x ray nurse diabetic orders after endocrinology appt - Humulin 140 units with breafast and supper, 120 units with lunch, ozempic, and pioglitazone continued.?? Continue medication regimen set forth by specialty team. PCP will defer diabetes management for specialist PCP will follow up on BG log at each visit and consult nursing staff to ensure Leonid has the neededsupplies for diabetes management, and continue to encourage healthy dietary intake and increased physical activity as able.?? Lab work resulted since last appt and faxed to x ray nurse as well. Although microalbuinurine was unable to be collected 09.08.2024: BMP Na 141. K 3.0L. Creatinine 1.0. eGFR 84. Ca 9.0. BG 238H. A1c 9.8%. Increased potassium supp from BID to TID. Amputated toe of right foot Hx amuptation due to infection Healed well No skin brekdown noted today Monitor closely for skin integrity breakdown and infection?? Hygiene is very important Pulmonary nodule Chest CT without contrast. 11.03.2023 CT showed pulmonary nodule (solid 4mm LLL and LLL calcified granuloma) Today ordering one year follow up as recommended by radiologist in 2023.?? Recurrent major depressive disorder, in partial remission Chronic PHQ score 5 today Continue BPS BHI Continue current mendication regimen - abilify and venlafaxine daily.??. 10/10/2024
--- OUTSIDE RECORDS SUMMARY | 2024-10-19 18:55 | XMS_ITS | CCD ---
Author Organization Unknown Care Team Providers Care Firmware Architect Name Role Phone Harrison Durham Primary Care Provider Leona vailable Unavailable Chronic Care Management Unavaila ble Summary Purpose DataExchange Insurance Providers Payer name Policy type / Coverage type Covered democrat ID Effective Begin Date Effective End Date Medicare [place] Part B [id number] Unknown Unknown Medicaid [place] Medicare Part B [id number] Unknown Unknown Family history Sister Brittany Suggs [...] on file 07/11/[address]: 457662643 Never smoker 01/16 Sexually Active? Unknown No [...] Unknown [facility] 09/03/[address]: 287490377 No Alcohol Consum ption 09/02/2020 Allergies, Adverse Reactions, Alerts Substance Reaction Codes Entered Date Inactivated Date Status * NO KNOWN FOOD ALLERGIES Kuiojpc9707/13/2023No Inactive DateActiveLISINOPRILRxNorm: 069906202/12/2020No Inactive DateActiveMetformin ONxNcfqplo17/28/2020No Inactive DateActive* NO KNOWN ENVIRONMENTAL UJTXHVKYNQummaru96/27/2024No Inactive DateActive Problems Condition Codes Effective Dates Condition St atus Body mass index [BMI] 60.0-69.9, adult S NOMED CT: 867238067 ICD-10: Z68.44 ICD-9: V85.44035ActiveConstipation by delayed colonic transitICD-10: K59.01 ICD-9: 564.01035ActiveMixed incontinenceSNOMED CT: 23242814 ICD-10: N39.46 ICD-9: 788.3303/5ActiveType 2 diabetes mellitus [...] planning - to document end of life surmipnrbkyCrmbcba02ctiveAmputated toe of right footICD-10: S98.131A ICD-9: 895.009/ctiveAnnual [...] E55.9 ICD-9: 268.909/ctiveCallus of heelICD-10: L84 ICD-9: 60534/esolvedGout due to renal impairmentICD-10: M10.30 ICD-9: 274.1005esolvedHyperhidrosis of palmsICD-10: L74.512 ICD-9: 705.21010/12/2023esolvedHyperlipidemia, unspecifiedICD-10: E78.5 ICD-9: 272.405/esolvedOther manager terminal (current) drug therapyICD-10: Z79.899 ICD-9: V58.6905esolvedPain [...] tagICD-10: L91.8 ICD-9: 701.904/esolvedCoronary artery disease involving [place] coronary artery of [place] heart, angina presence unspecifiedICD-10: I25.10 ICD-9: 414.0102/ctiveInappropriate sexual behaviorICD-10: Z72.89 ICD-9: 312.8910/ctivePre-op evaluationICD-10: Z01.818 ICD-9: V72.8403/28/2023ActiveSecondary hypertensionICD-10: I15.9 ICD-9: 405.9903/3ActiveDepressionICD-10: F32.9 ICD-9: 76524/2ResolvedDVT (deep venous thrombosis)ICD-10: I82.409 ICD-9: 453.4009/2ResolvedEncounter for [...] to other viral communicable diseasesICD-10: Z20.828 ICD-9: V01.7902/6325IsnkjnaeLffbcshdUnjwhey37/28/2020ActiveDiabetes mellitus Type 6Ghbdxfs07/28/2020ActiveAnemia in chronic kidney diseaseICD-10: D63.1 02/12/2020ResolvedHyperlipidemia, unspecifiedICD-10: E78.Resolved Medications Medication Codes Instructions Start Date Stop Date Status Fill Instructions pregabalin 150 mg capsule RxNorm: 287350 1 CAPSULE BY MOUTH AT BEDTIME (DX: NEUROPATHY) 08/21/19 Active FACILITY IS REQUESTING A REFILL OF THIS MEDICATION, THANK YOU! senna 8.6 mg tablet RxNorm: 224138 Take 1 Tablet(s) Oral QD as needed for constipation on day 2 of no bowel movement 08/09/19 25 Inactive Miralax 17 gram/dose oral powder RxNorm: 150484 Administer 17 Gram(s) Oral QD as needed for constipation on day 3 of no bowel movement 08/09/19 025 Inactive senna 8.6 mg tablet RxNorm: 042082 Take 1 Tablet(s) Oral QD as needed for constipation on day 2 of no bowel movement 08/09/19 Inactive Miralax 17 gram/dose oral powder RxNorm: 703491 Administer 17 Gram(s) Oral QD as needed for constipation on day 3 of no bowel movement 08/09/19 025 Inactive pregabalin 100 mg capsule RxNorm: 213989 Take 1 Capsule(s) Oral QAM every morning [...] (Concentrated) Insulin 500 unit/mL subcutaneous soln RxNorm: 812462 Inject 100 Unit(s) Subcutaneous AC before meals Three times daily before meals. 07/24/19 25 025 Inactive ammonium lactate 12 % topical cream RxNorm: 760602 Apply 1 Application Topical BID 07/20/19 No Stop Date Active ezetimibe 10 mg tablet RxNorm: 982389 Take 1 Tablet(s) Oral QD 07/18/19 No Stop Date Active senna 8.6 mg tablet RxNorm: 882418 Take 1 Tablet(s) Oral QD 07/18/19 25 025 Inactive metoprolol succinate ER 200 mg tablet,extended release 24 hr RxNorm: 639804 Take 1 Tablet(s) Oral QD 06/19/19 25 No Stop Date Active pantoprazole 40 mg tablet,delayed release RxNorm: 606162 Take 1 Tablet(s) Oral QAM every morning 06/19/19 25 No Stop Date Active hydralazine 50 mg tablet RxNorm: 581530 Take 1 Tablet(s) Oral QID 06/19/19 25 No Stop Date Active carbamazepine 200 mg tablet RxNorm: 831845 Take 1 Tablet(s) Oral BID 06/19/19 25 No Stop Date Active amlodipine 10 mg tablet RxNorm: 435110 Take 1 Tablet(s) Oral QD 06/19/19 25 No Stop Date Active Eliquis 5 mg tablet RxNorm: 2357398 Take 1 Tablet(s) Oral BID 06/19/19 25 No Stop Date Active pen needle, diabetic 30 gauge x 3/16 RxNorm: Use 1 6 times per day w/insulin 06/14/19 25 026 Active pen needle, diabetic 30 gauge x 3/16 RxNorm: Use 1 needle 6 times per day w/insulin 06/14/19 25 025 Inactive nystatin 100,000 unit/gram topical powder RxNorm: 387124 Apply 1 Application Topical BID as needed abdominal/breast /groin folds 05/24/19 25 026 Active pregabalin 100 mg capsule RxNorm: 019620 Take 1 Capsule(s) Oral QAM every morning 05/22/19 25 025 Inactive nystatin 100,000 unit/gram topical powder RxNorm: 467903 Apply 1 Application Topical BID as needed abdominal/breast /groin folds 04/11/20 24 024 Inactive chlorthalidone 25 mg tablet RxNorm: 609556 Take 1 Tablet(s) Oral QAM every morning 04/06/20 24 No Stop Date Active pregabalin 150 mg capsule RxNorm: 714265 Take 1 Capsule(s) Oral QHS every night at bedtime 03/31/20 24 024 Inactive Vascepa 1 gram capsule RxNorm: 6661865 Take 2 Capsule(s) Oral BID 03/30/20 24 025 Active rosuvastatin 40 mg tablet RxNorm: 857759 1 TAB ORALLY EVERY EVENING (DX:CORONARY ARTERY DISEASE) 03/28/20 No Stop Date Active venlafaxine ER 75 mg capsule,extended release 24 hr RxNorm: 213232 3 CAPS (225MG) ORALLY DAILY (DX: MOOD DISORDER) 03/28/20 No Stop Date Active pregabalin 100 mg capsule RxNorm: 978504 Take 1 Capsule(s) Oral QAM every morning 03/20/20 Inactive cholecalciferol (vitamin D3) 1,250 mcg (50,000 unit) capsule RxNorm: 289767 Take 1 Capsule(s) Oral QW once a [...] Insulin 100 unit/mL (3 mL) subcutaneous RxNorm: 0729734 Inject 40 Unit(s) Subcutaneous BID 03/07/20 025 Inactive Please dispense one month supply. Humulin R U-500 (Concentrated) Insulin 500 unit/mL subcutaneous soln RxNorm: 631508 Inject 100 Unit(s) Subcutaneous AC before meals [...] PRN) to be use with new Accu [place] meter 03/04/20 Inactive ok to substitute with any covered alternative test strip FreeStyle Chema 2 Sensor kit RxNorm: Use UD as directed 03/02/20 Inactive Pen Needle 30 gauge x 516 RxNorm: Pen(s) Use 1 needle as directed TID 03/02/20 Inactive nystatin 100,000 unit/gram topical powder RxNorm: 599586 Apply 1 Application Topical BID as needed [...] (Concentrated) Insulin 500 unit/mL subcutaneous soln RxNorm: 713689 Inject 100 Unit(s) Subcutaneous TID 02/17/20 24 024 Inactive Humulin R U-500 (Concentrated) Insulin 500 unit/mL subcutaneous soln RxNorm: 386828 Inject 100 Unit(s) Subcutaneous TID 02/10/20 24 024 Inactive Basaglar KwikPen U-100 Insulin 100 unit/mL (3 mL) subcutaneous RxNorm: 3024833 Inject 30 Unit(s) Subcutaneous BID 02/10/20 24 024 Inactive Please dispense one month supply. pregabalin 100 mg capsule RxNorm: 227945 Take 1 Capsule(s) Oral QAM every morning 02/07/20 24 024 Inactive isosorbide mononitrate ER 60 mg tablet,extended release 24 hr RxNorm: 110721 Take 1 Tablet(s) Oral QD 02/01/20 24 025 Active aripiprazole 15 mg tablet RxNorm: 139840 Take 1/2 Tablet(s) Oral QD 02/01/20 24 025 Active torsemide 20 mg tablet RxNorm: 245826 1 TAB ORALLY DAILY (DX: EDEMA) 01/27/20 No Stop Date Active potassium chloride ER 20 mEq tablet,extended release(part/cryst) RxNorm: 2716341 2 TABS (40MEQ) ORALLY TWICE DAILY (DX: HYPOKALEMIA) 01/27/20 24 025 Inactive cephalexin 500 mg capsule RxNorm: 215669 Take 1 Capsule(s) Oral QID 12/17/19 24 024 Inactive cephalexin 500 mg capsule RxNorm: 494226 Take 1 Capsule(s) Oral QID 12/17/19 24 024 Inactive acetaminophen 500 mg tablet RxNorm: 677631 (MAX APAP:4GM/24HR) Take 1 Tablet(s) Oral TID as needed for pain 12/10/19 24 024 Inactive torsemide 20 mg tablet RxNorm: 770174 Take 1 Tablet(s) Oral QD 10/26/19 24 024 Inactive potassium chloride ER 20 mEq tablet,extended release RxNorm: 644143 Take 2 Tablet(s) Oral BID 10/26/19 24 024 Inactive torsemide 20 mg tablet RxNorm: 502594 Take 1 Tablet(s) Oral QD 10/26/19 24 Inactive potassium chloride ER 20 mEq tablet,extended release RxNorm: 721921 Take 2 Tablet(s) Oral BID 10/26/19 24 025 Inactive Artificial Tears (PF) 0.1 %-0.3 % drops in a dropperette RxNorm: 278214 Apply 1-2 Drop(s) Both eyes BID as needed 09/28/19 24 Inactive erythromycin 5 mg/gram (0.5 %) eye ointment RxNorm: 912223 Apply 1 Application Both eyes QHS every night at bedtime Instill ~1 cm ribbon into affected eye 09/28/19 24 Inactive Artificial Tears (PF) 0.1 %-0.3 % drops in a dropperette RxNorm: 903216 Apply 1-2 Drop(s) Both eyes BID as needed 09/28/19 24 024 Inactive erythromycin 5 mg/gram (0.5 %) eye ointment RxNorm: 910493 Apply 1 Application Both eyes QHS every night at bedtime Instill ~1 cm ribbon into affected eye 09/28/19 24 Inactive acetaminophen 500 mg tablet RxNorm: 040740 (MAX APAP:4GM/24HR) Take 1 Tablet(s) Oral TID as needed for pain 09/24/19 24 Inactive carvedilol 25 mg tablet RxNorm: 730047 Take 1 Tablet(s) Oral QD 09/08/19 24 No Stop Date Active pregabalin 100 mg capsule RxNorm: 060507 Take 1 Capsule(s) Oral QAM every morning 09/07/19 24 024 Inactive bisacodyl 10 mg rectal suppository RxNorm: 428078 Insert 1 Suppository Rectal QD as needed 07/13/19 24 No Stop Date Active ketoconazole 2 % shampoo RxNorm: 461552 Apply 1 Application Topical UD as directed 07/13/19 24 No Stop Date Active Ozempic 1 mg/dose (4 mg/3 mL) subcutaneous pen injector RxNorm: 0565461 Inject 1 Milligram(s) Subcutaneous QW once a week 07/13/19 24 No Stop Date Active Guaifenesin AC 10 mg-100 mg/5 mL oral liquid RxNorm: 648758 Take 10 Milliliter(s) Oral Q4H every four hours as needed 07/13/19 24 No Stop Date Active hydrocortisone 2.5 % topical cream RxNorm: 484151 Apply 1 Application Topical BID as needed 07/13/19 24 No Stop Date Active rosuvastatin 20 mg sprinkle capsule RxNorm: 6890564 Take 1 Capsule(s) Oral QD 07/13/19 24 025 Inactive rosuvastatin 40 mg tablet RxNorm: 443516 Take 1 Tablet(s) Oral QPM every evening 07/13/19 24 024 Inactive ezetimibe 10 mg tablet RxNorm: 487002 Take 1 Tablet(s) Oral QD 07/13/19 24 025 Inactive polyethylene glycol 3350 17 gram/dose oral powder RxNorm: 820338 Take 17 Gram(s) Oral BID as needed mix in 4-8ox water 07/13/19 24 025 Inactive aripiprazole 15 mg tablet RxNorm: 748717 Take 1/2 Tablet(s) Oral QD 07/13/19 24 024 Inactive isosorbide mononitrate ER 60 mg tablet,extended release 24 hr RxNorm: 884493 Take 1 Tablet(s) Oral QD 07/13/19 24 024 Inactive ammonium lactate 12 % topical cream RxNorm: 321489 Apply 1 Application Topical BID 07/13/19 24 025 Inactive Vascepa 1 gram capsule RxNorm: 0434420 Take 2 Capsule(s) Oral BID 07/13/19 24 024 Inactive venlafaxine ER 75 mg capsule,extended release 24 hr RxNorm: 679579 Take 3 Capsule(s) Oral QD 07/13/19 24 024 Inactive Basaglar KwikPen U-100 Insulin 100 unit/mL (3 mL) subcutaneous RxNorm: 5472017 Inject 30U SubQ twice daily 07/07/19 24 024 Inactive Please dispense one month supply. Basaglar KwikPen U-100 Insulin 100 unit/mL (3 mL) subcutaneous RxNorm: 0145364 Inject 30U SubQ twice daily 07/07/19 24 024 Inactive Please dispense one month supply. pregabalin 150 mg capsule RxNorm: 929694 Take 1 Capsule(s) Oral QHS every night at bedtime 07/05/19 24 024 Inactive pregabalin 150 mg capsule RxNorm: 474913 Take 1 Capsule(s) Oral QHS every night at bedtime 07/05/19 24 024 Inactive polyethylene glycol 3350 17 gram/dose oral powder RxNorm: 856870 Take 1 Packet Oral QD as needed (1 packet = 17g) mix with 4-8oz of liquid 06/15/19 024 Inactive bisacodyl 10 mg rectal suppository RxNorm: 082295 Insert one suppository per rectum once daily as needed for constipation 06/15/19 024 Inactive bisacodyl 10 mg rectal suppository RxNorm: 926529 Insert one suppository per rectum once daily as needed for constipation 06/15/19 024 Inactive pregabalin 100 mg capsule RxNorm: 398854 Take 1 Capsule(s) Oral QAM every morning 04/27/20 024 Inactive Levemir FlexPen 100 unit/mL (3 mL) solution subcutaneous insulin pen RxNorm: 444926 Inject 30 Unit(s) Subcutaneous BID 04/27/20 024 Inactive rosuvastatin 40 mg tablet RxNorm: 449418 Take 1 Tablet(s) Oral QPM every evening 04/16/20 024 Inactive D/C rosuvastatin 20mg venlafaxine ER 75 mg capsule,extended release 24 hr RxNorm: 081134 Take 3 Capsule(s) Oral QD 04/14/20 023 Inactive pregabalin 100 mg capsule RxNorm: 856637 Take 1 Capsule(s) Oral QAM every morning [...] strip clotrimazole 1 % topical cream RxNorm: 779421 Take apply topically to abdominal folds twice daily for 14 days 03/12/20 024 Inactive Ozempic 1 mg/dose (4 mg/3 mL) subcutaneous pen injector RxNorm: 3785647 Inject 1 Milligram(s) Subcutaneous QW once a week 03/11/20 23 023 Inactive rosuvastatin 20 mg tablet RxNorm: 202693 Take 1 Tablet(s) Oral QD 02/26/20 23 023 Inactive d/c pravastatin 80mg Ozempic 1 mg/dose (4 mg/3 mL) subcutaneous pen injector RxNorm: 4085991 Inject 1 Milligram(s) Subcutaneous QW once a week 02/20/20 23 023 Inactive pregabalin 150 mg capsule RxNorm: 629315 Take 1 Capsule(s) Oral HS at bed time 02/19/20 23 023 Inactive pregabalin 100 mg capsule RxNorm: 980876 Take 1 Capsule(s) Oral QAM every morning 02/18/20 23 023 Inactive venlafaxine ER 75 mg capsule,extended release 24 hr RxNorm: 582832 Take 3 Capsule(s) Oral QD 02/04/20 23 023 Inactive FreeStyle Chema 2 Sensor kit RxNorm: use as directed 02/04/20 23 023 Inactive FreeStyle Chema 2 Sensor kit RxNorm: use as directed 02/04/20 23 024 Inactive fluconazole 150 mg tablet RxNorm: 024439 Take 1 Tablet(s) Oral on day 3 and on day 6 02/03/20 23 024 Inactive venlafaxine ER 150 mg capsule,extended release 24 hr RxNorm: 898537 Take 1 Capsule(s) Oral QD 02/03/20 23 023 Inactive chlorthalidone 25 mg tablet RxNorm: 953408 Take 1 Tablet(s) Oral QAM every morning 02/03/20 23 024 Inactive acetaminophen 500 mg tablet RxNorm: 314594 1 TABLET ORALLY 3 TIMES DAILY (MAX APAP:4GM/24HR) 12/15/19 23 023 Inactive clotrimazole 1 % topical cream RxNorm: 435849 apply 1g topically to top of feet and in between toes BID 12/09/19 23 025 Inactive potassium chloride ER 20 mEq tablet,extended release RxNorm: 165433 Take 1 Tablet(s) Oral BID 12/09/19 024 Inactive d/c 20mEq once daily (sent from hospital) nystatin 100,000 unit/gram topical powder RxNorm: 243844 APPLY TO AFFECTED AREAS TOPICALLY 2 TIMES DAILY 11/21/19 23 023 Inactive Nystop 100,000 unit/gram topical powder RxNorm: 516616 Apply to abd folds, under breasts and L side of groin Topical BID x 14 days, then BID PRN 11/20/19 023 Inactive dx: yeast dermatitis [place] Ultra Strength 4 %-30 %-10 % topical cream RxNorm: 777456 Apply 1 Gram(s) Topical QID PRN to feet and legs for neuropathic pain 11/11/19 024 Inactive clotrimazole 1 % topical cream RxNorm: 200736 Apply 1/2 Gram(s) Topical BID Apply to affected areas of groin, periarea, and abdominal topically 2 times daily 11/10/19 023 Inactive hydrocortisone 2.5 % topical cream RxNorm: 534959 Apply 1/2 Gram(s) Topical BID as needed 11/10/19 024 Inactive Levemir FlexPen 100 unit/mL (3 mL) solution subcutaneous insulin pen RxNorm: 047223 Inject 30 Unit(s) Subcutaneous BID 10/07/19 023 Inactive Humulin R U-500 (Concentrated) Insulin 500 unit/mL subcutaneous soln RxNorm: 228683 Inject 100 Unit(s) Subcutaneous TID 10/07/19 024 Inactive Ozempic 0.25 mg or 0.5 mg (2 mg/3 mL) subcutaneous pen injector RxNorm: 6552911 Inject 1/2 Milligram(s) Subcutaneous QW once a week 10/07/19 024 Inactive aripiprazole 15 mg tablet RxNorm: 030744 1/2 TAB (7.5MG) ORALLY DAILY (DX:MAJOR DEPRESSIVE DISORDER) 09/23/19 023 Inactive Accu-Chek Guide test strips RxNorm: Use 1 Test Strip QID 09/15/19 23 023 Inactive ok to substitute with any covered alternative test strip Lancets,Thin 28 gauge RxNorm: Use 1 as directed QID 09/15/19 23 023 Inactive torsemide 20 mg tablet RxNorm: 943980 Take 1 Tablet(s) Oral BID 09/09/19 23 024 Inactive d/c once daily dosing carvedilol 25 mg tablet RxNorm: 743452 Take 1 Tablet(s) Oral QD 08/25/19 23 024 Inactive pregabalin 150 mg capsule RxNorm: 710972 1 Capsule(s) Oral HS at bed time 08/18/19 23 023 Inactive pregabalin 100 mg capsule RxNorm: 837609 1 Capsule(s) Oral QAM every morning 08/18/19 23 023 Inactive carvedilol 25 mg tablet RxNorm: 358776 1 Tablet(s) Oral QD 07/28/19 23 023 Inactive lisinopril 20 mg tablet RxNorm: 834564 Give 1 Tablet(s) Oral QD 07/28/19 23 023 Inactive Lyrica 150 mg capsule RxNorm: 372913 Take 1 Capsule(s) Oral QHS every night at bedtime 07/19/19 23 023 Inactive d/c 100mg dose Diflucan 150 mg tablet RxNorm: 713564 Take 1 Tablet(s) Oral QD repeat on day 3 and 6 07/19/19 23 023 Inactive pregabalin 100 mg capsule RxNorm: 129331 Take 1 Capsule(s) Oral QAM every morning 07/19/19 23 023 Inactive gatifloxacin 0.5 % eye drops RxNorm: 113746 Instill 1 Drop(s) as directed TID Instill 1 drop in to affected eye(s) starting 1 day prior to surgery and continue until gone (do not exceed 4 weeks). 07/13/19 23 023 Inactive carvedilol 25 mg tablet RxNorm: 926687 2 Tablet(s) Oral BID 07/13/19 23 023 Inactive Humulin R Regular U-100 Insulin 100 unit/mL injection solution RxNorm: 134642 85 Unit(s) Injection TID 07/13/19 23 023 Inactive ketorolac 0.5 % eye drops RxNorm: 129805 Instill 1 Drop(s) as directed QID Instill 1 drop into affected eye(s) 4 times daily starting 1 day prior to surgery and continue until gone (do not exceed 4 weeks). 07/13/19 23 023 Inactive Diflucan 150 mg tablet RxNorm: 289216 Take 1 Tablet(s) Oral QD repeat on day 3 and 6 06/30/19 23 023 Inactive Accu-Chek Guide test strips RxNorm: Use 1 Test Strip QID Use 1 test strip to monitor blood glucose 4 times daily and as needed. Dx:E11.42. 06/23/19 23 023 Inactive ok to substitute with any covered alternative test strip dextromethorphan-gu aifenesin 10 mg-100 mg/5 mL oral liquid RxNorm: 058514 Take 10 Milliliter(s) Oral every 4 hours as needed for cough 06/19/19 23 023 Inactive dextromethorphan-gu aifenesin 10 mg-100 mg/5 mL oral liquid RxNorm: 752360 Take 10 Milliliter(s) Oral every 4 hours as needed for cough 06/19/19 23 023 Inactive Lyrica 150 mg capsule RxNorm: 162411 Take 1 Capsule(s) Oral QHS every night at bedtime 06/18/19 23 023 Inactive d/c 100mg dose aripiprazole 15 mg tablet RxNorm: 655683 /2 TAB (7.5MG) ORALLY DAILY (DX:MAJOR DEPRESSIVE DISORDER) 06/05/19 23 023 Inactive pregabalin 100 mg capsule RxNorm: 812351 1 Capsule(s) Oral QAM every morning 06/02/19 23 023 Inactive Banophen 50 mg capsule RxNorm: 3607427 Take 1 Capsule(s) Oral Q6H every 6 hours as needed 05/19/19 23 No Stop Date Active Novolog Flexpen U-100 Insulin aspart 100 unit/mL (3 mL) subcutaneous RxNorm: 8413047 Inject 10 Unit(s) Subcutaneous QHS every night at bedtime with nighttime snack 04/08/20 Inactive Novolog Flexpen U-100 Insulin aspart 100 unit/mL (3 mL) subcutaneous RxNorm: 2070564 Inject 42 Unit(s) Subcutaneous TID in addition to sliding scale 04/08/20 Inactive d/c 36u albuterol sulfate HFA 90 mcg/actuation aerosol inhaler RxNorm: 1553955 Take 2 Puff(s) Inhalation Q4H every four hours as needed as needed for SOB, cough, or wheezing 04/07/20 030 Active Banophen 50 mg capsule RxNorm: 6641247 Take 1 Capsule(s) Oral Q6H every 6 hours as needed 04/06/20 023 Inactive diphenhydramine 50 mg tablet RxNorm: 2758608 Take 1 Tablet(s) Oral Q6H every 6 hours as needed 04/06/20 022 Inactive diphenhydramine 50 mg tablet RxNorm: 4996322 1 Tablet(s) Oral Q6H every 6 hours as needed 04/06/20 022 Inactive Abilify 15 mg tablet RxNorm: 143799 1/2 Tablet(s) Oral QD 03/10/20 023 Inactive Shingrix (PF) 50 mcg/0.5 mL intramuscular suspension, kit RxNorm: 7450778 Administer 1/2 Milliliter(s) Intramuscular QD one time shingrix step 2 ( step 1 given 11/04/21) WITH needle - Nursing please administer upon arrival and once administered post a bridge message with date of administration, 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, expiration date, and lot# so we can update [facility] 02/18/20 22 022 Inactive dispense with needle Shingrix (PF) 50 mcg/0.5 mL intramuscular suspension, kit RxNorm: 2922411 Administer 1/2 Milliliter(s) Intramuscular QD one time shingrix step 2 ( step 1 given 11/04/21) WITH needle - Nursing please administer upon arrival and once administered post a bridge message with date of administration, 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, expiration date, and lot# so we can update [facility] 02/18/20 Inactive dispense with needle Lyrica 100 mg capsule RxNorm: 985255 Take 1 Capsule(s) Oral QAM every morning 01/08/20 22 022 Inactive d/c 50mg dose acetaminophen 500 mg tablet RxNorm: 886421 Take 1 Tablet(s) Oral TID 01/08/20 22 022 Inactive d/c PRN order Lyrica 150 mg capsule RxNorm: 760379 Take 1 Capsule(s) Oral QHS every night at bedtime 01/08/20 22 023 Inactive d/c 100mg dose polyethylene glycol 3350 17 gram/dose oral powder RxNorm: 339016 Take 17=1 capful Gram(s) Oral QD mix with 4-8oz of liquid 01/08/20 22 025 Inactive take this in addition to BID prn order Abilify 5 mg tablet RxNorm: 175583 Take 1 Tablet(s) Oral QD take 1 tab po QD #30 refill 5 dx: MDD 12/12/19 22 022 Inactive Abilify 5 mg tablet RxNorm: 476266 Take 1 Tablet(s) Oral QD take 1 tab po QD #30 refill 5 dx: MDD 12/12/19 22 022 Inactive Novolog Flexpen U-100 Insulin aspart 100 unit/mL (3 mL) subcutaneous RxNorm: 6834617 Inject 42 Unit(s) Subcutaneous TID in addition to sliding scale 12/10/19 22 022 Inactive d/c 36u chlorthalidone 25 mg tablet RxNorm: 103552 Take 1 Tablet(s) Oral QAM every morning 12/10/19 22 023 Inactive pregabalin 50 mg capsule RxNorm: 198763 Take 1 Capsule(s) Oral QAM every morning 11/12/19 22 022 Inactive tetanus-diphtheria toxoids-Td 2 Lf unit-2 Lf unit/0.5 mL IM suspension RxNorm: 139 Take 0.5 Miscellaneous Intramuscular 11/12/19 22 022 Inactive need tdap - nursing to administer upon arrival pregabalin 50 mg capsule RxNorm: 180456 Take 1 Capsule(s) Oral QAM every morning 10/16/19 22 022 Inactive pregabalin 50 mg capsule RxNorm: 889727 Take 1 Capsule(s) Oral QAM every morning 10/16/19 22 022 Inactive pregabalin 50 mg capsule RxNorm: 684756 1 Capsule(s) Oral QAM every morning 10/15/19 22 022 Inactive Shingrix (PF) 50 mcg/0.5 mL intramuscular suspension, kit RxNorm: 9809896 Administer 1/2 Milliliter(s) Intramuscular one time Nursing please administer upon arrival and once administered post a bridge message with date of administration, 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 10/09/19 22 022 Inactive shingrix step 1 Shingrix (PF) 50 mcg/0.5 mL intramuscular suspension, kit RxNorm: 8509396 Administer 1/2 Milliliter(s) Intramuscular one time Nursing please administer upon arrival and once administered post a bridge message with date of administration, oil 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, expiration date, and lot# so we [...] aspart 100 unit/mL (3 mL) subcutaneous RxNorm: 6843704 Inject 10 Unit(s) Subcutaneous QHS every night at bedtime with nighttime snack 10/08/19 22 022 Inactive Shingrix (PF) 50 mcg/0.5 mL intramuscular suspension, kit RxNorm: 3549309 ADMINISTER 2-DOSE SERIES PER CDC GUIDELINES 10/08/19 22 022 Active Shingrix (PF) 50 mcg/0.5 mL intramuscular suspension, kit RxNorm: 6614217 ADMINISTER 2-DOSE SERIES PER CDC GUIDELINES 10/08/19 22 Inactive Novolog Flexpen U-100 Insulin aspart 100 unit/mL (3 mL) subcutaneous RxNorm: 8745787 Inject 36 Unit(s) Subcutaneous TID in addition to sliding scale 10/08/19 22 022 Inactive cholecalciferol (vitamin D3) 1,250 mcg (50,000 unit) capsule RxNorm: 391369 Take 1 Capsule(s) Oral QW once a week 10/08/19 024 Inactive Novofine Autocover 30 gauge x 1/3 needle RxNorm: Use 1 Miscellaneous UD as directed Use 1 needle as directed to administer insulin 5 times a day Dx:E11.42. 10/03/19 022 Inactive ok to substitute with any covered alternative pen needle benzoyl peroxide 10 % topical cleanser RxNorm: 353632 Apply 1 Application Topical QD apply to face, wash rinse and dry once daily (may change to QOD if drying) 08/19/19 22 022 Inactive (%covered by insurance) #60ml refill 11 dx: acne benzoyl peroxide 10 % topical cleanser RxNorm: 386341 Apply 1 Application Topical QD apply to face, wash rinse and dry once daily (may change to QOD if drying) 08/19/19 22 022 Inactive (%covered by insurance) #60ml refill 11 dx: acne benzoyl peroxide 10 % topical cleanser RxNorm: 338157 Apply 1 Application Topical QD apply to face, wash rinse and dry once daily (may change to QOD if drying) 08/19/19 22 022 Inactive (%covered by insurance) #60ml refill 11 dx: acne Lyrica 50 mg capsule RxNorm: 595339 Take 1 Capsule(s) Oral QAM every morning Take 1 capsule by mouth once daily 08/19/19 22 022 Inactive benzoyl peroxide 10 % topical cleanser RxNorm: 193759 Apply 1 Application Topical QD apply to face, wash rinse and dry once daily (may change to QOD if drying) 08/19/19 22 022 Inactive (%covered by insurance) #60ml refill 11 dx: acne Lyrica 100 mg capsule RxNorm: 818283 Take 1 Capsule(s) Oral QHS every night at bedtime Take 1 capsule by mouth once daily at bedtime 08/19/19 22 022 Inactive Lyrica 100 mg capsule RxNorm: 658114 Take 1 Capsule(s) Oral QHS every night at bedtime Take 1 capsule by mouth once daily at bedtime 08/16/19 22 022 Inactive Lyrica 50 mg capsule RxNorm: 387094 Take 1 Capsule(s) Oral QAM every morning Take 1 capsule by mouth once daily 08/16/19 22 Inactive Levemir FlexTouch U-100 Insulin 100 unit/mL (3 mL) subcutaneous pen RxNorm: 755881 Inject 86 Unit(s) Subcutaneous BID 08/05/19 22 022 Inactive d/c 83units BID Lyrica 100 mg capsule RxNorm: 460351 Take 1 Capsule(s) Oral QHS every night at bedtime Take 1 capsule by mouth once daily at bedtime 07/14/19 22 022 Inactive Lyrica 50 mg capsule RxNorm: 171528 Take 1 Capsule(s) Oral QAM every morning Take 1 capsule by mouth once daily 07/14/19 22 022 Inactive Levemir FlexTouch U-100 Insulin 100 unit/mL (3 mL) subcutaneous pen RxNorm: 773702 Inject 83 Unit(s) Subcutaneous BID 07/08/19 22 [...] test strip hydralazine 50 mg tablet RxNorm: 237393 Take 1 Tablet(s) Oral QID 05/05/20 21 022 Inactive venlafaxine ER 225 mg tablet,extended release 24 hr RxNorm: 997364 Take 1 Tablet(s) Oral QD 05/05/20 21 021 Inactive venlafaxine ER 225 mg tablet,extended release 24 hr RxNorm: 274214 Take 1 Tablet(s) Oral QD 05/05/20 21 022 Inactive isosorbide mononitrate ER 30 mg tablet,extended release 24 hr RxNorm: 680338 Take 1 Tablet(s) Oral QD 05/05/20 21 024 Inactive hydralazine 50 mg tablet RxNorm: 111561 Take 1 Tablet(s) Oral QID 05/05/20 21 021 Inactive aspirin 81 mg tablet,delayed release RxNorm: 851723 Take 1 Tablet(s) Oral QD 03/31/20 21 022 Inactive Vitamin D2 1,250 mcg (50,000 unit) capsule RxNorm: 7428861 Take 1 Capsule(s) Oral QW once a week x 12 weeks 03/31/20 022 Inactive Vitamin D2 1,250 mcg (50,000 unit) capsule RxNorm: 3071923 Take 1 Capsule(s) Oral QW once a week 03/31/20 021 Inactive Zetia 10 mg tablet RxNorm: 927989 Take 1 Tablet(s) Oral QD 03/31/20 024 Inactive Zetia 10 mg tablet RxNorm: 764013 Take 1 Tablet(s) Oral QD 03/31/20 021 Inactive hydralazine 25 mg tablet RxNorm: 158015 Take 1 Tablet(s) Oral QID 03/31/20 021 Inactive hydralazine 25 mg tablet RxNorm: 709981 Take 1 Tablet(s) Oral QID 03/31/20 021 Inactive hydralazine 10 mg tablet RxNorm: 715485 Take 1 Tablet(s) Oral QID 03/03/20 021 Inactive cephalexin 500 mg tablet RxNorm: 935285 Take 1 Tablet(s) Oral QID 02/27/20 021 Inactive cephalexin 500 mg tablet RxNorm: 278118 Take 1 Tablet(s) Oral QID 02/27/20 021 Inactive lisinopril 40 mg tablet RxNorm: 555695 Take 1 Tablet(s) Oral QD 02/11/20 21 023 Inactive Eliquis 5 mg tablet RxNorm: 8010162 Take 1 Tablet(s) Oral BID 01/05/20 21 025 Inactive Eliquis 5 mg tablet RxNorm: 0304299 Take 2 Tablet(s) Oral QD 01/01/20 21 021 Inactive Lyrica 50 mg capsule RxNorm: 553284 Take 1 Capsule(s) Oral QAM every morning 12/24/19 21 021 Inactive Lyrica 100 mg capsule RxNorm: 655209 Take 1 Capsule(s) Oral QHS every night at bedtime 12/24/19 21 021 Inactive clotrimazole 1 % topical cream RxNorm: 170373 Apply to right foot and toes Topical BID 12/04/19 21 023 Inactive metoprolol succinate ER 200 mg tablet,extended release 24 hr RxNorm: 053382 Take 1 Tablet(s) Oral QD 12/04/19 21 023 Inactive ciprofloxacin 500 mg tablet RxNorm: 277995 Take 1 Tablet(s) Oral QD 11/30/19 21 021 Inactive DX ofloxacin otic drops Accu-Chek Guide test strips RxNorm: USE 1 TO CHECK GLUCOSE 4 TIMES DAILY AND NEEDED 11/15/19 21 023 Inactive Blood Glucose Test strips RxNorm: Use 1 Test Strip QID at PRN 11/05/19 21 023 Inactive E11.42 lisinopril 30 mg tablet RxNorm: 855125 Take 1 Tablet(s) Oral QD 10/30/19 21 021 Inactive lisinopril 20 mg tablet RxNorm: 907593 Take 1 Tablet(s) Oral QD 10/23/19 21 021 Inactive lisinopril 20 mg tablet RxNorm: 615758 Take 1 Tablet(s) Oral QD 10/23/19 21 021 Inactive lisinopril 10 mg tablet RxNorm: 517845 Take 1 Tablet(s) Oral QD 10/02/19 21 021 Inactive icosapent ethyl 1 gram capsule RxNorm: 7273765 Take 2 Capsule(s) (2 gm) Oral BID with meals 09/12/19 21 024 Inactive Okay to dispense one 2gm tab if you have that available. icosapent ethyl 1 gram capsule RxNorm: 3596528 Take 2 Capsule(s) Oral BID 09/12/19 21 021 Inactive Okay to dispense one 2gm tab if you have that available. amlodipine 10 mg tablet RxNorm: 089792 Take 1 Tablet(s) Oral QD 09/04/19 21 021 Inactive aspirin 81 mg tablet,delayed release RxNorm: 978863 Take 1 Tablet(s) Oral QD 09/04/19 21 021 Inactive Levemir FlexTouch U-100 Insulin 100 unit/mL (3 mL) subcutaneous pen RxNorm: 366086 Inject 150 Unit(s) Subcutaneous BID 09/04/19 21 022 Inactive venlafaxine ER 150 mg tablet,extended release 24 hr RxNorm: 636834 Take 1 Tablet(s) Oral QD 09/04/19 021 Inactive clotrimazole-betame thasone 1 %-0.05 % topical cream RxNorm: 373782 Apply to rash on red area on left abdomen/chest Topical BID 08/10/19 21 Inactive amlodipine 5 mg tablet RxNorm: 245583 Take 1 Tablet(s) Oral QD 07/31/19 Inactive cephalexin 500 mg tablet RxNorm: 990104 Take 1 Tablet(s) Oral BID BID - Twice Daily 07/31/19 21 021 Inactive Start 08/01/20 pantoprazole 40 mg tablet,delayed release RxNorm: 647088 Take 1 Tablet(s) Oral QAM every morning 07/08/19 025 Inactive clopidogrel 75 mg tablet RxNorm: 825299 Take 1 Tablet(s) Oral QD 07/08/19 021 Inactive Blood Glucose Test strips RxNorm: Use 1 Test Strip QID at PRN 07/08/19 Inactive E11.42 senna 8.6 mg tablet RxNorm: 771017 Take 1 Tablet(s) Oral QD 07/08/19 025 Inactive Novolog Flexpen U-100 Insulin aspart 100 unit/mL (3 mL) subcutaneous RxNorm: 4584318 Administer per sliding scale Milliliter(s) Subcutaneous TID 151-200: 10 u; 201-250: 20 u; 251-300: 30 u; 301-350: 40 u; 351-400: 50 u. 07/08/19 022 Inactive lisinopril 5 mg tablet RxNorm: 574911 Take 1 Tablet(s) Oral QD 07/08/19 021 Inactive Novolog Flexpen U-100 Insulin aspart 100 unit/mL (3 mL) subcutaneous RxNorm: 9221684 Inject 85 Unit(s) Subcutaneous TID 07/08/19 21 022 Inactive pravastatin 80 mg tablet RxNorm: 502843 Take 1 Tablet(s) Oral QHS every night at bedtime 07/08/19 023 Inactive clotrimazole 1 % topical cream RxNorm: 382425 Apply to bilateral groin areas Topical BID 07/08/19 21 022 Inactive metoprolol succinate ER 200 mg tablet,extended release 24 hr RxNorm: 581112 Take 1 Tablet(s) Oral QD 07/08/19 021 Inactive Vitamin D3 25 mcg (1,000 unit) tablet RxNorm: 300508 Take 1 Tablet(s) Oral QD 07/08/19 21 021 Inactive isosorbide dinitrate 30 mg tablet RxNorm: 645947 Take 1 Tablet(s) Oral QD 07/08/19 21 021 Inactive carbamazepine 200 mg tablet RxNorm: 959262 Take 1 Tablet(s) Oral BID 07/08/19 21 025 Inactive Levemir FlexTouch U-100 Insulin 100 unit/mL (3 mL) subcutaneous pen RxNorm: 416572 Inject 140 Unit(s) Subcutaneous BID 07/08/19 21 021 Inactive torsemide 20 mg tablet RxNorm: 234635 Take 1 Tablet(s) Oral QD 07/08/19 21 023 Inactive venlafaxine 75 mg tablet RxNorm: 602350 Take 1 Tablet(s) Oral QD 07/08/19 21 021 Inactive acetaminophen 500 mg tablet RxNorm: 923842 Take 1 Tablet(s) Oral TID as needed for headache 06/18/19 21 021 Inactive acetaminophen 500 mg tablet RxNorm: 124673 Take 1 Tablet(s) Oral TID as needed for headache 06/18/19 21 021 Inactive Lyrica 100 mg capsule RxNorm: 511292 Take 1 Capsule(s) Oral QHS every night at bedtime 06/11/19 21 021 Inactive Lyrica 50 mg capsule RxNorm: 825848 Take 1 Capsule(s) Oral QAM every morning 06/10/19 21 021 Inactive hydrocortisone 2.5 % topical cream RxNorm: 007817 Apply to bilateral groin creases Topical BID 05/15/20 20 021 Inactive clotrimazole 1 % topical cream RxNorm: 434450 Apply to bilateral groin areas Topical BID 05/15/20 20 021 Inactive Lyrica 50 mg capsule RxNorm: 636329 Take 1 Capsule(s) Oral QAM every morning 05/14/20 20 020 Inactive Lyrica 100 mg capsule RxNorm: 662092 Take 1 Capsule(s) Oral QHS every night [...] Inactive Nystop 100,000 unit/gram topical powder RxNorm: 861057 Apply to abd folds, under breasts and L side of groin Topical BID x 14 days, then BID PRN 04/08/20 20 020 Inactive dx: yeast dermatitis Lyrica 100 mg capsule RxNorm: 015082 Take 1 Capsule(s) Oral QHS every night at bedtime 03/13/20 20 020 Inactive Lyrica 50 mg capsule RxNorm: 878669 Take 1 Capsule(s) Oral QAM every morning 03/13/20 20 020 Inactive ketoconazole 2 % shampoo RxNorm: 141142 Apply Topical two times a week with showers 03/11/20 20 024 Inactive cholecalciferol (vitamin D3) 50 mcg (2,000 unit) tablet RxNorm: 668151 Take 1 Tablet(s) Oral QD 03/11/20 20 021 Inactive Zetia 10 mg tablet RxNorm: 444696 Take 1 Tablet(s) Oral QD 03/07/20 20 021 Inactive Zetia 10 mg tablet RxNorm: 439322 Take 1 Tablet(s) Oral QD 03/07/20 20 Inactive Lyrica 50 mg capsule RxNorm: 477019 Take 1 Capsule(s) Oral QAM every morning 02/15/20 20 Inactive Lyrica 100 mg capsule RxNorm: 601219 Take 1 Capsule(s) Oral QHS every night at bedtime 02/15/20 Inactive Lyrica 100 mg capsule RxNorm: 424579 Take 1 Capsule(s) Oral QHS every night at bedtime 02/15/20 20 Inactive Lyrica 50 mg capsule RxNorm: 256639 Take 1 Capsule(s) Oral QAM every morning 02/15/20 20 Inactive loperamide 2 mg capsule RxNorm: 035137 Take 1 Capsule(s) Oral QID as needed 09/06/19 25 025 Inactive venlafaxine ER 75 mg capsule,extended release 24 hr RxNorm: 559018 Take 3 Capsule(s) Oral QD 06/12/19 023 Inactive polyethylene glycol 3350 17 gram/dose oral powder RxNorm: 316002 Take 17=1 capful Gram(s) Oral BID as needed mix with 4-8oz of liquid 06/12/19 22 024 Inactive icosapent ethyl 1 gram capsule RxNorm: 0959946 Take 2 Capsule(s) (2 gm) Oral BID with meals 10/07/19 23 023 Inactive Okay to dispense one 2gm tab if you have that available. Levemir FlexTouch U-100 Insulin 100 unit/mL (3 mL) subcutaneous pen RxNorm: 037666 Inject 80 Unit(s) Subcutaneous BID 07/14/19 23 023 Inactive metoprolol succinate ER 200 mg tablet,extended release 24 hr RxNorm: 803998 Take 1 Tablet(s) Oral QD 08/12/19 025 Inactive hydralazine 50 mg tablet RxNorm: 115237 Take 1 Tablet(s) Oral QID 08/12/19 025 Inactive Soft Touch Lancets RxNorm: miscellaneous 03/04/20 025 Inactive Novolog Flexpen U-100 Insulin aspart 100 unit/mL (3 mL) subcutaneous RxNorm: 9528885 Insert 30 Unit(s) Subcutaneous TID with meals [...] [facility] [address] [id number] [place]ReferralAppointment [id number]/06/2025Referral: [facility]/Endocrinology WPtel: [address] [id number] [place]ReferralNo Records Laqzmari42/24/2025Referral: [facility] WPtel: [address], [address] [id number] [place]ReferralRecords Oytbtyvl69/08/2023Referral: [facility] WPtel: [address] [id number] KHNqzwsugiYshplinju02/12/2022Referral: General CardiologyReferralCompleted 1Referral: General PsychologistReferralClosedReferral: General PsychiatristReferralPatient/Family [...] Sister Jyotsna involved in his care cell# [phone] Guardian: Don (tapan met in person 09/01/21), [...] Webster MD [facility]. Start Pioglitazone 15 mg QD. Stop Basaglar insulin. Increase Ozempic 2 mg once wkly. Continue Humalin R U-500 100 units with meals TID. FOLLOW UP 2 MONTHS. If BG >400 add 50 units to next scheduled dose of Humalin R U 500 insulin 06/12/2024
--- OUTSIDE RECORDS SUMMARY | 2024-10-19 18:56 | XMS_ITS | CCD ---
Author Organization Unknown Care Team Providers Care Life Care Planner Name Role Phone Harrison Durham Primary Care Provider Leona vailable Unavailable Chronic Care Management Unavaila ble Summary Purpose DataExchange Insurance Providers Payer name Policy type / Coverage type Covered libertarian ID Effective Begin Date Effective End Date [place] B [id number] Unknown Unknown [place] B [id number] Unknown Unknown Family history Sister Brittany Suggs [...] on file 07/11/[address]: [id number] Never smoker 01/16 Sexually Active? Unknown No [...] Unknown Jail 09/03/[address]: [id number] No Alcohol Consum ption 09/02/2020 Allergies, Adverse Reactions, Alerts Substance Reaction Codes Entered Date Inactivated Date Status * NO KNOWN FOOD ALLERGIES Rawutwq0907/13/2023No Inactive DateActiveLISINOPRILRxNorm: 736266302/12/2020No Inactive DateActiveMetformin MVlKthsmlc98/28/2020No Inactive DateActive* NO KNOWN ENVIRONMENTAL ETXMTBXKQPwenfuc95/27/2024No Inactive DateActive Problems Condition Codes Effective Dates [...] planning - to document end of life ifbqhntrmsvNseakpb62/24/2024ctiveAmputated toe of right footICD-10: S98.131A ICD-9: 895.ctiveAnnual [...] E55.9 ICD-9: 268.909ctiveCallus of heelICD-10: L84 ICD-9: 42778/esolvedGout due to renal impairmentICD-10: M10.30 ICD-9: 274.1005esolvedHyperhidrosis of palmsICD-10: L74.512 ICD-9: 705.21010/12/2023esolvedHyperlipidemia, unspecifiedICD-10: E78.5 ICD-9: 272.405/esolvedOther residential (current) drug therapyICD-10: Z79.899 ICD-9: V58.6905/esolvedPain of [...] tagICD-10: L91.8 ICD-9: 701.904esolvedCoronary artery disease involving [place] coronary artery of [place] heart, angina presence unspecifiedICD-10: I25.10 ICD-9: 414.0102/4ActiveInappropriate sexual behaviorICD-10: Z72.89 ICD-9: 312.8910/ctivePre-op evaluationICD-10: Z01.818 ICD-9: V72.8403/ctiveSecondary hypertensionICD-10: I15.9 ICD-9: 405.9903/ctiveDepressionICD-10: F32.9 ICD-9: 937682ResolvedDVT (deep venous thrombosis)ICD-10: I82.409 ICD-9: 453.4009/2ResolvedEncounter for [...] to other viral communicable diseasesICD-10: Z20.828 ICD-9: V01.7902/4602DdsggqizFygwqzdgDkpnjmv56/28/2020ActiveDiabetes mellitus Type 2Cxclhtt32/28/2020ActiveAnemia in chronic kidney diseaseICD-10: D63.1 02/12/2020ResolvedHyperlipidemia, unspecifiedICD-10: E78.509Resolved Medications Medication Codes Instructions Start Date Stop Date Status Fill Instructions ammonium lactate 12 % topical cream RxNorm: 300745 Apply 1 Application Topical BID 07/20/19 25 No Stop Date Active senna 8.6 mg tablet RxNorm: 506218 Take 1 Tablet(s) Oral QD 07/18/19 25 025 Inactive ezetimibe 10 mg tablet RxNorm: 062908 Take 1 Tablet(s) Oral QD 07/18/19 25 No Stop Date Active metoprolol succinate ER 200 mg tablet,extended release 24 hr RxNorm: 847659 Take 1 Tablet(s) Oral QD 06/19/19 25 No Stop Date Active pantoprazole 40 mg tablet,delayed release RxNorm: 082487 Take 1 Tablet(s) Oral QAM every morning 06/19/19 25 No Stop Date Active hydralazine 50 mg tablet RxNorm: 442996 Take 1 Tablet(s) Oral QID 06/19/19 25 No Stop Date Active carbamazepine 200 mg tablet RxNorm: 416520 Take 1 Tablet(s) Oral BID 06/19/19 25 No Stop Date Active amlodipine 10 mg tablet RxNorm: 155050 Take 1 Tablet(s) Oral QD 06/19/19 25 No Stop Date Active Eliquis 5 mg tablet RxNorm: 4917328 Take 1 Tablet(s) Oral BID 06/19/19 25 No Stop Date Active pen needle, diabetic 30 gauge x 3/16 RxNorm: Use 1 6 times per day w/insulin 06/14/19 25 026 Active pen needle, diabetic 30 gauge x 3/16 RxNorm: Use 1 needle 6 times per day w/insulin 06/14/19 25 025 Inactive nystatin 100,000 unit/gram topical powder RxNorm: 449422 Apply 1 Application Topical BID as needed abdominal/breast /groin folds 05/24/19 25 026 Active pregabalin 100 mg capsule RxNorm: 958099 Take 1 Capsule(s) Oral QAM every morning 05/22/19 25 025 Inactive nystatin 100,000 unit/gram topical powder RxNorm: 821674 Apply 1 Application Topical BID as needed abdominal/breast /groin folds 04/11/20 24 024 Inactive chlorthalidone 25 mg tablet RxNorm: 939605 Take 1 Tablet(s) Oral QAM every morning 04/06/20 24 No Stop Date Active pregabalin 150 mg capsule RxNorm: 017908 Take 1 Capsule(s) Oral QHS every night at bedtime 03/31/20 24 024 Inactive Vascepa 1 gram capsule RxNorm: 8081144 Take 2 Capsule(s) Oral BID 03/30/20 Active rosuvastatin 40 mg tablet RxNorm: 629712 1 TAB ORALLY EVERY EVENING (DX:CORONARY ARTERY DISEASE) 03/28/20 No Stop Date Active venlafaxine ER 75 mg capsule,extended release 24 hr RxNorm: 210555 3 CAPS (225MG) ORALLY DAILY (DX: MOOD DISORDER) 03/28/20 No Stop Date Active pregabalin 100 mg capsule RxNorm: 745402 Take 1 Capsule(s) Oral QAM every morning 03/20/20 Inactive cholecalciferol (vitamin D3) 1,250 mcg (50,000 unit) capsule RxNorm: 096936 Take 1 Capsule(s) Oral QW once a [...] Insulin 100 unit/mL (3 mL) subcutaneous RxNorm: 7243984 Inject 40 Unit(s) Subcutaneous BID 03/07/20 24 025 Inactive Please dispense one month supply. Humulin R U-500 (Concentrated) Insulin 500 unit/mL subcutaneous soln RxNorm: 732909 Inject 100 Unit(s) Subcutaneous AC before meals [...] PRN) to be use with new Accu [place] meter 03/04/20 024 Inactive ok to substitute with any covered alternative test strip FreeStyle Chema 2 Sensor kit RxNorm: Use UD as directed 03/02/20 Inactive Pen Needle 30 gauge x 09/29 RxNorm: Pen(s) Use 1 needle as directed TID 03/02/20 Inactive nystatin 100,000 unit/gram topical powder RxNorm: 607434 Apply 1 Application Topical BID as needed [...] (Concentrated) Insulin 500 unit/mL subcutaneous soln RxNorm: 037579 Inject 100 Unit(s) Subcutaneous TID 02/17/20 024 Inactive Humulin R U-500 (Concentrated) Insulin 500 unit/mL subcutaneous soln RxNorm: 675820 Inject 100 Unit(s) Subcutaneous TID 02/10/20 24 024 Inactive Basaglar KwikPen U-100 Insulin 100 unit/mL (3 mL) subcutaneous RxNorm: 3958952 Inject 30 Unit(s) Subcutaneous BID 02/10/20 24 024 Inactive Please dispense one month supply. pregabalin 100 mg capsule RxNorm: 610704 Take 1 Capsule(s) Oral QAM every morning 02/07/20 24 024 Inactive isosorbide mononitrate ER 60 mg tablet,extended release 24 hr RxNorm: 371112 Take 1 Tablet(s) Oral QD 02/01/20 24 025 Active aripiprazole 15 mg tablet RxNorm: 727168 Take 1/2 Tablet(s) Oral QD 02/01/20 24 Active torsemide 20 mg tablet RxNorm: 978659 1 TAB ORALLY DAILY (DX: EDEMA) 01/27/20 No Stop Date Active potassium chloride ER 20 mEq tablet,extended release(part/cryst) RxNorm: 9422636 2 TABS (40MEQ) ORALLY TWICE DAILY (DX: HYPOKALEMIA) 01/27/20 24 025 Inactive cephalexin 500 mg capsule RxNorm: 685333 Take 1 Capsule(s) Oral QID 12/17/19 24 024 Inactive cephalexin 500 mg capsule RxNorm: 343806 Take 1 Capsule(s) Oral QID 12/17/19 24 024 Inactive acetaminophen 500 mg tablet RxNorm: 842057 (MAX APAP:4GM/24HR) Take 1 Tablet(s) Oral TID as needed for pain 12/10/19 24 024 Inactive torsemide 20 mg tablet RxNorm: 141106 Take 1 Tablet(s) Oral QD 10/26/19 24 025 Inactive potassium chloride ER 20 mEq tablet,extended release RxNorm: 19800522 Take 2 Tablet(s) Oral BID 10/26/19 24 Inactive torsemide 20 mg tablet RxNorm: 932371 Take 1 Tablet(s) Oral QD 10/26/19 24 024 Inactive potassium chloride ER 20 mEq tablet,extended release RxNorm: 19800522 Take 2 Tablet(s) Oral BID 10/26/19 24 024 Inactive Artificial Tears (PF) 0.1 %-0.3 % drops in a dropperette RxNorm: 767194 Apply 1-2 Drop(s) Both eyes BID as needed 09/28/19 24 025 Inactive erythromycin 5 mg/gram (0.5 %) eye ointment RxNorm: 445471 Apply 1 Application Both eyes QHS every night at bedtime Instill ~1 cm ribbon into affected eye 09/28/19 24 024 Inactive Artificial Tears (PF) 0.1 %-0.3 % drops in a dropperette RxNorm: 566990 Apply 1-2 Drop(s) Both eyes BID as needed 09/28/19 24 024 Inactive erythromycin 5 mg/gram (0.5 %) eye ointment RxNorm: 373304 Apply 1 Application Both eyes QHS every night at bedtime Instill ~1 cm ribbon into affected eye 09/28/19 24 024 Inactive acetaminophen 500 mg tablet RxNorm: 563033 (MAX APAP:4GM/24HR) Take 1 Tablet(s) Oral TID as needed for pain 09/24/19 24 024 Inactive carvedilol 25 mg tablet RxNorm: 771123 Take 1 Tablet(s) Oral QD 09/08/19 24 No Stop Date Active pregabalin 100 mg capsule RxNorm: 716655 Take 1 Capsule(s) Oral QAM every morning 09/07/19 24 024 Inactive bisacodyl 10 mg rectal suppository RxNorm: 279434 Insert 1 Suppository Rectal QD as needed 07/13/19 24 No Stop Date Active polyethylene glycol 3350 17 gram/dose oral powder RxNorm: 037233 Take 17 Gram(s) Oral BID as needed mix in 4-8ox water 07/13/19 24 025 Inactive ketoconazole 2 % shampoo RxNorm: 553979 Apply 1 Application Topical UD as directed 07/13/19 24 No Stop Date Active Ozempic 1 mg/dose (4 mg/3 mL) subcutaneous pen injector RxNorm: 6906790 Inject 1 Milligram(s) Subcutaneous QW once a week 07/13/19 24 No Stop Date Active Guaifenesin AC 10 mg-100 mg/5 mL oral liquid RxNorm: 986958 Take 10 Milliliter(s) Oral Q4H every four hours as needed 07/13/19 No Stop Date Active ammonium lactate 12 % topical cream RxNorm: 913949 Apply 1 Application Topical BID 07/13/19 24 025 Inactive hydrocortisone 2.5 % topical cream RxNorm: 365013 Apply 1 Application Topical BID as needed 07/13/19 No Stop Date Active rosuvastatin 20 mg sprinkle capsule RxNorm: 8476038 Take 1 Capsule(s) Oral QD 07/13/19 24 025 Inactive rosuvastatin 40 mg tablet RxNorm: 386283 Take 1 Tablet(s) Oral QPM every evening 07/13/19 024 Inactive ezetimibe 10 mg tablet RxNorm: 281429 Take 1 Tablet(s) Oral QD 07/13/19 24 025 Inactive aripiprazole 15 mg tablet RxNorm: 425759 Take 1/2 Tablet(s) Oral QD 07/13/19 24 024 Inactive isosorbide mononitrate ER 60 mg tablet,extended release 24 hr RxNorm: 845137 Take 1 Tablet(s) Oral QD 07/13/19 24 024 Inactive Vascepa 1 gram capsule RxNorm: 6880581 Take 2 Capsule(s) Oral BID 07/13/19 24 024 Inactive venlafaxine ER 75 mg capsule,extended release 24 hr RxNorm: 323591 Take 3 Capsule(s) Oral QD 07/13/19 24 024 Inactive Basaglar KwikPen U-100 Insulin 100 unit/mL (3 mL) subcutaneous RxNorm: 1389342 Inject 30U SubQ twice daily 07/07/19 24 024 Inactive Please dispense one month supply. Basaglar KwikPen U-100 Insulin 100 unit/mL (3 mL) subcutaneous RxNorm: 3436915 Inject 30U SubQ twice daily 07/07/19 24 024 Inactive Please dispense one month supply. pregabalin 150 mg capsule RxNorm: 516120 Take 1 Capsule(s) Oral QHS every night at bedtime 02/19/ 024 Inactive pregabalin 150 mg capsule RxNorm: 454455 Take 1 Capsule(s) Oral QHS every night at bedtime 07/05/19 024 Inactive polyethylene glycol 3350 17 gram/dose oral powder RxNorm: 529879 Take 1 Packet Oral QD as needed (1 packet = 17g) mix with 4-8oz of liquid 06/15/19 024 Inactive bisacodyl 10 mg rectal suppository RxNorm: 121515 Insert one suppository per rectum once daily as needed for constipation 06/15/19 024 Inactive bisacodyl 10 mg rectal suppository RxNorm: 896020 Insert one suppository per rectum once daily as needed for constipation 06/15/19 024 Inactive pregabalin 100 mg capsule RxNorm: 484707 Take 1 Capsule(s) Oral QAM every morning 04/27/20 024 Inactive Levemir FlexPen 100 unit/mL (3 mL) solution subcutaneous insulin pen RxNorm: 033145 Inject 30 Unit(s) Subcutaneous BID 04/27/20 024 Inactive rosuvastatin 40 mg tablet RxNorm: 870171 Take 1 Tablet(s) Oral QPM every evening 04/16/20 024 Inactive D/C rosuvastatin 20mg venlafaxine ER 75 mg capsule,extended release 24 hr RxNorm: 233929 Take 3 Capsule(s) Oral QD 04/14/20 23 023 Inactive pregabalin 100 mg capsule RxNorm: 175256 Take 1 Capsule(s) Oral QAM every morning [...] strip clotrimazole 1 % topical cream RxNorm: 337776 Take apply topically to abdominal folds twice daily for 14 days 03/12/20 024 Inactive Ozempic 1 mg/dose (4 mg/3 mL) subcutaneous pen injector RxNorm: 1095328 Inject 1 Milligram(s) Subcutaneous QW once a week 03/11/20 023 Inactive rosuvastatin 20 mg tablet RxNorm: 293829 Take 1 Tablet(s) Oral QD 02/26/20 023 Inactive d/c pravastatin 80mg Ozempic 1 mg/dose (4 mg/3 mL) subcutaneous pen injector RxNorm: 7837455 Inject 1 Milligram(s) Subcutaneous QW once a week 02/20/20 023 Inactive pregabalin 150 mg capsule RxNorm: 362439 Take 1 Capsule(s) Oral HS at bed time 02/19/20 023 Inactive pregabalin 100 mg capsule RxNorm: 497536 Take 1 Capsule(s) Oral QAM every morning 02/18/20 023 Inactive venlafaxine ER 75 mg capsule,extended release 24 hr RxNorm: 294545 Take 3 Capsule(s) Oral QD 02/04/20 023 Inactive FreeStyle Chema 2 Sensor kit RxNorm: use as directed 02/04/20 023 Inactive FreeStyle Chema 2 Sensor kit RxNorm: use as directed 02/04/20 23 024 Inactive fluconazole 150 mg tablet RxNorm: 497989 Take 1 Tablet(s) Oral on day 3 and on day 6 02/03/20 024 Inactive venlafaxine ER 150 mg capsule,extended release 24 hr RxNorm: 721934 Take 1 Capsule(s) Oral QD 02/03/20 023 Inactive chlorthalidone 25 mg tablet RxNorm: 618066 Take 1 Tablet(s) Oral QAM every morning 02/03/20 024 Inactive acetaminophen 500 mg tablet RxNorm: 323954 1 TABLET ORALLY 3 TIMES DAILY (MAX APAP:4GM/24HR) 12/15/19 23 023 Inactive clotrimazole 1 % topical cream RxNorm: 754701 apply 1g topically to top of feet and in between toes BID 12/09/19 23 025 Inactive potassium chloride ER 20 mEq tablet,extended release RxNorm: 229664 Take 1 Tablet(s) Oral BID 12/09/19 024 Inactive d/c 20mEq once daily (sent from hospital) nystatin 100,000 unit/gram topical powder RxNorm: 969506 APPLY TO AFFECTED AREAS TOPICALLY 2 TIMES DAILY 11/21/19 023 Inactive Nystop 100,000 unit/gram topical powder RxNorm: 846123 Apply to abd folds, under breasts and L side of groin Topical BID x 14 days, then BID PRN 11/20/19 023 Inactive dx: yeast dermatitis [place] Ultra Strength 4 %-30 %-10 % topical cream RxNorm: 852368 Apply 1 Gram(s) Topical QID PRN to feet and legs for neuropathic pain 11/11/19 024 Inactive clotrimazole 1 % topical cream RxNorm: 425260 Apply 1/2 Gram(s) Topical BID Apply to affected areas of groin, periarea, and abdominal topically 2 times daily 11/10/19 023 Inactive hydrocortisone 2.5 % topical cream RxNorm: 563898 Apply 1/2 Gram(s) Topical BID as needed 11/10/19 024 Inactive Levemir FlexPen 100 unit/mL (3 mL) solution subcutaneous insulin pen RxNorm: 281687 Inject 30 Unit(s) Subcutaneous BID 10/07/19 23 023 Inactive Humulin R U-500 (Concentrated) Insulin 500 unit/mL subcutaneous soln RxNorm: 759765 Inject 100 Unit(s) Subcutaneous TID 10/07/19 024 Inactive Ozempic 0.25 mg or 0.5 mg (2 mg/3 mL) subcutaneous pen injector RxNorm: 1721536 Inject 1/2 Milligram(s) Subcutaneous QW once a week 10/07/19 024 Inactive aripiprazole 15 mg tablet RxNorm: 208367 1/2 TAB (7.5MG) ORALLY DAILY (DX:MAJOR DEPRESSIVE DISORDER) 09/23/19 23 023 Inactive Accu-Chek Guide test strips RxNorm: Use 1 Test Strip QID 09/15/19 23 023 Inactive ok to substitute with any covered alternative test strip Lancets,Thin 28 gauge RxNorm: Use 1 as directed QID 09/15/19 23 023 Inactive torsemide 20 mg tablet RxNorm: 820680 Take 1 Tablet(s) Oral BID 09/09/19 23 024 Inactive d/c once daily dosing carvedilol 25 mg tablet RxNorm: 681211 Take 1 Tablet(s) Oral QD 08/25/19 23 024 Inactive pregabalin 150 mg capsule RxNorm: 633583 1 Capsule(s) Oral HS at bed time 08/18/19 23 023 Inactive pregabalin 100 mg capsule RxNorm: 402859 1 Capsule(s) Oral QAM every morning 08/18/19 23 023 Inactive carvedilol 25 mg tablet RxNorm: 699700 1 Tablet(s) Oral QD 07/28/19 23 023 Inactive lisinopril 20 mg tablet RxNorm: 744084 Give 1 Tablet(s) Oral QD 07/28/19 23 023 Inactive Lyrica 150 mg capsule RxNorm: 960097 Take 1 Capsule(s) Oral QHS every night at bedtime 07/19/19 023 Inactive d/c 100mg dose Diflucan 150 mg tablet RxNorm: 820159 Take 1 Tablet(s) Oral QD repeat on day 3 and 6 07/19/19 23 023 Inactive pregabalin 100 mg capsule RxNorm: 287686 Take 1 Capsule(s) Oral QAM every morning 07/19/19 23 023 Inactive gatifloxacin 0.5 % eye drops RxNorm: 452324 Instill 1 Drop(s) as directed TID Instill 1 drop in to affected eye(s) starting 1 day prior to surgery and continue until gone (do not exceed 4 weeks). 07/13/19 23 023 Inactive carvedilol 25 mg tablet RxNorm: 555898 2 Tablet(s) Oral BID 07/13/19 23 023 Inactive Humulin R Regular U-100 Insulin 100 unit/mL injection solution RxNorm: 146226 85 Unit(s) Injection TID 07/13/19 23 023 Inactive ketorolac 0.5 % eye drops RxNorm: 873862 Instill 1 Drop(s) as directed QID Instill 1 drop into affected eye(s) 4 times daily starting 1 day prior to surgery and continue until gone (do not exceed 4 weeks). 07/13/19 23 023 Inactive Diflucan 150 mg tablet RxNorm: 581004 Take 1 Tablet(s) Oral QD repeat on day 3 and 6 06/30/19 023 Inactive Accu-Chek Guide test strips RxNorm: Use 1 Test Strip QID Use 1 test strip to monitor blood glucose 4 times daily and as needed. Dx:E11.42. 06/23/19 23 023 Inactive ok to substitute with any covered alternative test strip dextromethorphan-gu aifenesin 10 mg-100 mg/5 mL oral liquid RxNorm: 547332 Take 10 Milliliter(s) Oral every 4 hours as needed for cough 06/19/19 023 Inactive dextromethorphan-gu aifenesin 10 mg-100 mg/5 mL oral liquid RxNorm: 656344 Take 10 Milliliter(s) Oral every 4 hours as needed for cough 06/19/19 23 023 Inactive Lyrica 150 mg capsule RxNorm: 567224 Take 1 Capsule(s) Oral QHS every night at bedtime 06/18/19 23 023 Inactive d/c 100mg dose aripiprazole 15 mg tablet RxNorm: 568046 1/2 TAB (7.5MG) ORALLY DAILY (DX:MAJOR DEPRESSIVE DISORDER) 06/05/19 23 023 Inactive pregabalin 100 mg capsule RxNorm: 621216 1 Capsule(s) Oral QAM every morning 06/02/19 23 023 Inactive Banophen 50 mg capsule RxNorm: 6792197 Take 1 Capsule(s) Oral Q6H every 6 hours as needed 05/19/19 No Stop Date Active Novolog Flexpen U-100 Insulin aspart 100 unit/mL (3 mL) subcutaneous RxNorm: 2969152 Inject 10 Unit(s) Subcutaneous QHS every night at bedtime with nighttime snack 04/08/20 Inactive Novolog Flexpen U-100 Insulin aspart 100 unit/mL (3 mL) subcutaneous RxNorm: 2752034 Inject 42 Unit(s) Subcutaneous TID in addition to sliding scale 04/08/20 Inactive d/c 36u albuterol sulfate HFA 90 mcg/actuation aerosol inhaler RxNorm: 2115600 Take 2 Puff(s) Inhalation Q4H every four hours as needed as needed for SOB, cough, or wheezing 04/07/20 030 Active Banophen 50 mg capsule RxNorm: 7711289 Take 1 Capsule(s) Oral Q6H every 6 hours as needed 04/06/20 023 Inactive diphenhydramine 50 mg tablet RxNorm: 4875143 Take 1 Tablet(s) Oral Q6H every 6 hours as needed 04/06/20 022 Inactive diphenhydramine 50 mg tablet RxNorm: 9010296 1 Tablet(s) Oral Q6H every 6 hours as needed 04/06/20 022 Inactive Abilify 15 mg tablet RxNorm: 900935 1/2 Tablet(s) Oral QD 03/10/20 023 Inactive Shingrix (PF) 50 mcg/0.5 mL intramuscular suspension, kit RxNorm: 4803970 Administer 1/2 Milliliter(s) Intramuscular QD one time shingrix step 2 ( step 1 given 11/04/21) WITH needle - Nursing please administer upon arrival and once administered post a bridge message with date of administration, stock worker and deliverer, expiration date, and lot# so we can update [facility] 02/18/20 022 Inactive dispense with needle Shingrix (PF) 50 mcg/0.5 mL intramuscular suspension, kit RxNorm: 0171235 Administer 1/2 Milliliter(s) Intramuscular QD one time shingrix step 2 ( step 1 given 11/04/21) WITH needle - Nursing please administer upon arrival and once administered post a bridge message with date of administration, stock worker and deliverer, expiration date, and lot# so we can update [facility] 02/18/20 22 Inactive dispense with needle polyethylene glycol 3350 17 gram/dose oral powder RxNorm: 481425 Take 17=1 capful Gram(s) Oral QD mix with 4-8oz of liquid 01/08/20 22 025 Inactive take this in addition to BID prn order Lyrica 100 mg capsule RxNorm: 962244 Take 1 Capsule(s) Oral QAM every morning 01/08/20 22 022 Inactive d/c 50mg dose acetaminophen 500 mg tablet RxNorm: 402813 Take 1 Tablet(s) Oral TID 01/08/20 22 022 Inactive d/c PRN order Lyrica 150 mg capsule RxNorm: 009540 Take 1 Capsule(s) Oral QHS every night at bedtime 01/08/20 22 023 Inactive d/c 100mg dose Abilify 5 mg tablet RxNorm: 788857 Take 1 Tablet(s) Oral QD take 1 tab po QD #30 refill 5 dx: MDD 12/12/19 22 022 Inactive Abilify 5 mg tablet RxNorm: 035227 Take 1 Tablet(s) Oral QD take 1 tab po QD #30 refill 5 dx: MDD 12/12/19 22 022 Inactive Novolog Flexpen U-100 Insulin aspart 100 unit/mL (3 mL) subcutaneous RxNorm: 7411711 Inject 42 Unit(s) Subcutaneous TID in addition to sliding scale 12/10/19 22 022 Inactive d/c 36u chlorthalidone 25 mg tablet RxNorm: 422645 Take 1 Tablet(s) Oral QAM every morning 12/10/19 22 023 Inactive pregabalin 50 mg capsule RxNorm: 377912 Take 1 Capsule(s) Oral QAM every morning 11/12/19 22 022 Inactive tetanus-diphtheria toxoids-Td 2 Lf unit-2 Lf unit/0.5 mL IM suspension RxNorm: 139 Take 0.5 Miscellaneous Intramuscular 11/12/19 22 022 Inactive need tdap - nursing to administer upon arrival pregabalin 50 mg capsule RxNorm: 184534 Take 1 Capsule(s) Oral QAM every morning 10/16/19 22 022 Inactive pregabalin 50 mg capsule RxNorm: 239391 Take 1 Capsule(s) Oral QAM every morning 10/16/19 22 022 Inactive pregabalin 50 mg capsule RxNorm: 195081 1 Capsule(s) Oral QAM every morning 10/15/19 22 022 Inactive Shingrix (PF) 50 mcg/0.5 mL intramuscular suspension, kit RxNorm: 2674283 Administer 1/2 Milliliter(s) Intramuscular one time Nursing please administer upon arrival and once administered post a bridge message with date of administration, stock worker and deliverer, expiration date, and lot# so we can update [facility]. 10/09/19 22 022 Inactive shingrix step 1 Shingrix (PF) 50 mcg/0.5 mL intramuscular suspension, kit RxNorm: 5265723 Administer 1/2 Milliliter(s) Intramuscular one time Nursing please administer upon arrival and once administered post a bridge message with date of administration, stock worker and deliverer, expiration date, and lot# so we can [...] aspart 100 unit/mL (3 mL) subcutaneous RxNorm: 5933040 Inject 10 Unit(s) Subcutaneous QHS every night at bedtime with nighttime snack 10/08/19 22 022 Inactive Shingrix (PF) 50 mcg/0.5 mL intramuscular suspension, kit RxNorm: 4662134 ADMINISTER 2-DOSE SERIES PER CDC GUIDELINES 10/08/19 22 022 Active Shingrix (PF) 50 mcg/0.5 mL intramuscular suspension, kit RxNorm: 0494656 ADMINISTER 2-DOSE SERIES PER CDC GUIDELINES 10/08/19 22 Inactive Novolog Flexpen U-100 Insulin aspart 100 unit/mL (3 mL) subcutaneous RxNorm: 9747188 Inject 36 Unit(s) Subcutaneous TID in addition to sliding scale 10/08/19 22 Inactive cholecalciferol (vitamin D3) 1,250 mcg (50,000 unit) capsule RxNorm: 235522 Take 1 Capsule(s) Oral QW once a week 10/08/19 Inactive Novofine Autocover 30 gauge x 1/3 needle RxNorm: Use 1 Miscellaneous UD as directed Use 1 needle as directed to administer insulin 5 times a day Dx:E11.42. 10/03/19 Inactive ok to substitute with any covered alternative pen needle benzoyl peroxide 10 % topical cleanser RxNorm: 860271 Apply 1 Application Topical QD apply to face, wash rinse and dry once daily (may change to QOD if drying) 08/19/19 022 Inactive (%covered by insurance) #60ml refill 11 dx: acne benzoyl peroxide 10 % topical cleanser RxNorm: 964503 Apply 1 Application Topical QD apply to face, wash rinse and dry once daily (may change to QOD if drying) 08/19/19 22 022 Inactive (%covered by insurance) #60ml refill 11 dx: acne benzoyl peroxide 10 % topical cleanser RxNorm: 183069 Apply 1 Application Topical QD apply to face, wash rinse and dry once daily (may change to QOD if drying) 08/19/19 22 022 Inactive (%covered by insurance) #60ml refill 11 dx: acne Lyrica 50 mg capsule RxNorm: 396449 Take 1 Capsule(s) Oral QAM every morning Take 1 capsule by mouth once daily 08/19/19 22 022 Inactive benzoyl peroxide 10 % topical cleanser RxNorm: 635108 Apply 1 Application Topical QD apply to face, wash rinse and dry once daily (may change to QOD if drying) 08/19/19 22 Inactive (%covered by insurance) #60ml refill 11 dx: acne Lyrica 100 mg capsule RxNorm: 929519 Take 1 Capsule(s) Oral QHS every night at bedtime Take 1 capsule by mouth once daily at bedtime 08/19/19 22 022 Inactive Lyrica 100 mg capsule RxNorm: 149580 Take 1 Capsule(s) Oral QHS every night at bedtime Take 1 capsule by mouth once daily at bedtime 08/16/19 22 Inactive Lyrica 50 mg capsule RxNorm: 100162 Take 1 Capsule(s) Oral QAM every morning Take 1 capsule by mouth once daily 08/16/19 22 Inactive Levemir FlexTouch U-100 Insulin 100 unit/mL (3 mL) subcutaneous pen RxNorm: 169956 Inject 86 Unit(s) Subcutaneous BID 08/05/19 22 022 Inactive d/c 83units BID Lyrica 100 mg capsule RxNorm: 004506 Take 1 Capsule(s) Oral QHS every night at bedtime Take 1 capsule by mouth once daily at bedtime 07/14/19 22 022 Inactive Lyrica 50 mg capsule RxNorm: 157602 Take 1 Capsule(s) Oral QAM every morning Take 1 capsule by mouth once daily 07/14/19 22 022 Inactive Levemir FlexTouch U-100 Insulin 100 unit/mL (3 mL) subcutaneous pen RxNorm: 380811 Inject 83 Unit(s) Subcutaneous BID 07/08/19 22 [...] test strip hydralazine 50 mg tablet RxNorm: 583999 Take 1 Tablet(s) Oral QID 05/05/20 21 022 Inactive venlafaxine ER 225 mg tablet,extended release 24 hr RxNorm: 577260 Take 1 Tablet(s) Oral QD 05/05/20 21 021 Inactive venlafaxine ER 225 mg tablet,extended release 24 hr RxNorm: 389057 Take 1 Tablet(s) Oral QD 05/05/20 21 022 Inactive isosorbide mononitrate ER 30 mg tablet,extended release 24 hr RxNorm: 873867 Take 1 Tablet(s) Oral QD 05/05/20 21 024 Inactive hydralazine 50 mg tablet RxNorm: 780116 Take 1 Tablet(s) Oral QID 05/05/20 21 021 Inactive aspirin 81 mg tablet,delayed release RxNorm: 500814 Take 1 Tablet(s) Oral QD 03/31/20 022 Inactive Vitamin D2 1,250 mcg (50,000 unit) capsule RxNorm: 3106227 Take 1 Capsule(s) Oral QW once a week x 12 weeks 03/31/20 022 Inactive Vitamin D2 1,250 mcg (50,000 unit) capsule RxNorm: 5854954 Take 1 Capsule(s) Oral QW once a week 03/31/20 021 Inactive Zetia 10 mg tablet RxNorm: 984793 Take 1 Tablet(s) Oral QD 03/31/20 024 Inactive Zetia 10 mg tablet RxNorm: 956247 Take 1 Tablet(s) Oral QD 03/31/20 021 Inactive hydralazine 25 mg tablet RxNorm: 817210 Take 1 Tablet(s) Oral QID 03/31/20 021 Inactive hydralazine 25 mg tablet RxNorm: 603859 Take 1 Tablet(s) Oral QID 03/31/20 021 Inactive hydralazine 10 mg tablet RxNorm: 238132 Take 1 Tablet(s) Oral QID 03/03/20 021 Inactive cephalexin 500 mg tablet RxNorm: 319871 Take 1 Tablet(s) Oral QID 02/27/20 021 Inactive cephalexin 500 mg tablet RxNorm: 238239 Take 1 Tablet(s) Oral QID 02/27/20 021 Inactive lisinopril 40 mg tablet RxNorm: 017504 Take 1 Tablet(s) Oral QD 02/11/20 21 023 Inactive Eliquis 5 mg tablet RxNorm: 4829310 Take 1 Tablet(s) Oral BID 01/05/20 21 025 Inactive Eliquis 5 mg tablet RxNorm: 3085467 Take 2 Tablet(s) Oral QD 01/01/20 21 021 Inactive Lyrica 50 mg capsule RxNorm: 806129 Take 1 Capsule(s) Oral QAM every morning 12/24/19 21 021 Inactive Lyrica 100 mg capsule RxNorm: 372448 Take 1 Capsule(s) Oral QHS every night at bedtime 12/24/19 21 021 Inactive clotrimazole 1 % topical cream RxNorm: 689335 Apply to right foot and toes Topical BID 12/04/19 21 023 Inactive metoprolol succinate ER 200 mg tablet,extended release 24 hr RxNorm: 222846 Take 1 Tablet(s) Oral QD 12/04/19 21 023 Inactive ciprofloxacin 500 mg tablet RxNorm: 316578 Take 1 Tablet(s) Oral QD 11/30/19 21 021 Inactive DX ofloxacin otic drops Accu-Chek Guide test strips RxNorm: USE 1 TO CHECK GLUCOSE 4 TIMES DAILY AND NEEDED 11/15/19 21 023 Inactive Blood Glucose Test strips RxNorm: Use 1 Test Strip QID at PRN 11/05/19 21 023 Inactive E11.42 lisinopril 30 mg tablet RxNorm: 758682 Take 1 Tablet(s) Oral QD 10/30/19 21 021 Inactive lisinopril 20 mg tablet RxNorm: 694962 Take 1 Tablet(s) Oral QD 10/23/19 21 021 Inactive lisinopril 20 mg tablet RxNorm: 332198 Take 1 Tablet(s) Oral QD 10/23/19 21 021 Inactive lisinopril 10 mg tablet RxNorm: 474387 Take 1 Tablet(s) Oral QD 10/02/19 21 021 Inactive icosapent ethyl 1 gram capsule RxNorm: 5955947 Take 2 Capsule(s) (2 gm) Oral BID with meals 09/12/19 024 Inactive Okay to dispense one 2gm tab if you have that available. icosapent ethyl 1 gram capsule RxNorm: 6024653 Take 2 Capsule(s) Oral BID 09/12/19 21 021 Inactive Okay to dispense one 2gm tab if you have that available. amlodipine 10 mg tablet RxNorm: 191462 Take 1 Tablet(s) Oral QD 09/04/19 21 021 Inactive aspirin 81 mg tablet,delayed release RxNorm: 052271 Take 1 Tablet(s) Oral QD 09/04/19 21 021 Inactive Levemir FlexTouch U-100 Insulin 100 unit/mL (3 mL) subcutaneous pen RxNorm: 808108 Inject 150 Unit(s) Subcutaneous BID 09/04/19 21 022 Inactive venlafaxine ER 150 mg tablet,extended release 24 hr RxNorm: 200778 Take 1 Tablet(s) Oral QD 09/04/19 021 Inactive clotrimazole-betame thasone 1 %-0.05 % topical cream RxNorm: 972947 Apply to rash on red area on left abdomen/chest Topical BID 08/10/19 21 Inactive amlodipine 5 mg tablet RxNorm: 269958 Take 1 Tablet(s) Oral QD 07/31/19 21 Inactive cephalexin 500 mg tablet RxNorm: 466199 Take 1 Tablet(s) Oral BID BID - Twice Daily 07/31/19 Inactive Start 08/01/20 pantoprazole 40 mg tablet,delayed release RxNorm: 201075 Take 1 Tablet(s) Oral QAM every morning 07/08/19 025 Inactive clopidogrel 75 mg tablet RxNorm: 811080 Take 1 Tablet(s) Oral QD 07/08/19 021 Inactive Blood Glucose Test strips RxNorm: Use 1 Test Strip QID at PRN 07/08/19 21 Inactive E11.42 senna 8.6 mg tablet RxNorm: 367024 Take 1 Tablet(s) Oral QD 07/08/19 025 Inactive Novolog Flexpen U-100 Insulin aspart 100 unit/mL (3 mL) subcutaneous RxNorm: 8330416 Administer per sliding scale Milliliter(s) Subcutaneous TID 151-200: 10 u; 201-250: 20 u; 251-300: 30 u; 301-350: 40 u; 351-400: 50 u. 07/08/19 21 022 Inactive lisinopril 5 mg tablet RxNorm: 726686 Take 1 Tablet(s) Oral QD 07/08/19 021 Inactive Novolog Flexpen U-100 Insulin aspart 100 unit/mL (3 mL) subcutaneous RxNorm: 9168949 Inject 85 Unit(s) Subcutaneous TID 07/08/19 21 022 Inactive pravastatin 80 mg tablet RxNorm: 051168 Take 1 Tablet(s) Oral QHS every night at bedtime 07/08/19 023 Inactive clotrimazole 1 % topical cream RxNorm: 208632 Apply to bilateral groin areas Topical BID 07/08/19 022 Inactive metoprolol succinate ER 200 mg tablet,extended release 24 hr RxNorm: 556146 Take 1 Tablet(s) Oral QD 07/08/19 21 021 Inactive Vitamin D3 25 mcg (1,000 unit) tablet RxNorm: 990565 Take 1 Tablet(s) Oral QD 07/08/19 021 Inactive isosorbide dinitrate 30 mg tablet RxNorm: 963821 Take 1 Tablet(s) Oral QD 07/08/19 021 Inactive carbamazepine 200 mg tablet RxNorm: 375613 Take 1 Tablet(s) Oral BID 07/08/19 025 Inactive Levemir FlexTouch U-100 Insulin 100 unit/mL (3 mL) subcutaneous pen RxNorm: 735436 Inject 140 Unit(s) Subcutaneous BID 07/08/19 21 021 Inactive torsemide 20 mg tablet RxNorm: 835794 Take 1 Tablet(s) Oral QD 07/08/19 21 023 Inactive venlafaxine 75 mg tablet RxNorm: 818607 Take 1 Tablet(s) Oral QD 07/08/19 021 Inactive acetaminophen 500 mg tablet RxNorm: 483053 Take 1 Tablet(s) Oral TID as needed for headache 06/18/19 021 Inactive acetaminophen 500 mg tablet RxNorm: 644220 Take 1 Tablet(s) Oral TID as needed for headache 06/18/19 21 021 Inactive Lyrica 100 mg capsule RxNorm: 633496 Take 1 Capsule(s) Oral QHS every night at bedtime 06/11/19 21 021 Inactive Lyrica 50 mg capsule RxNorm: 708476 Take 1 Capsule(s) Oral QAM every morning 06/10/19 21 021 Inactive hydrocortisone 2.5 % topical cream RxNorm: 224230 Apply to bilateral groin creases Topical BID 05/15/20 20 021 Inactive clotrimazole 1 % topical cream RxNorm: 502277 Apply to bilateral groin areas Topical BID 05/15/20 20 021 Inactive Lyrica 50 mg capsule RxNorm: 845667 Take 1 Capsule(s) Oral QAM every morning 05/14/20 20 020 Inactive Lyrica 100 mg capsule RxNorm: 225230 Take 1 Capsule(s) Oral QHS every night [...] Inactive Nystop 100,000 unit/gram topical powder RxNorm: 998027 Apply to abd folds, under breasts and L side of groin Topical BID x 14 days, then BID PRN 04/08/20 20 020 Inactive dx: yeast dermatitis Lyrica 100 mg capsule RxNorm: 877401 Take 1 Capsule(s) Oral QHS every night at bedtime 03/13/20 20 020 Inactive Lyrica 50 mg capsule RxNorm: 983183 Take 1 Capsule(s) Oral QAM every morning 03/13/20 20 020 Inactive ketoconazole 2 % shampoo RxNorm: 327199 Apply Topical two times a week with showers 03/11/20 20 Inactive cholecalciferol (vitamin D3) 50 mcg (2,000 unit) tablet RxNorm: 330613 Take 1 Tablet(s) Oral QD 03/11/20 021 Inactive Zetia 10 mg tablet RxNorm: 260498 Take 1 Tablet(s) Oral QD 03/07/20 021 Inactive Zetia 10 mg tablet RxNorm: 860166 Take 1 Tablet(s) Oral QD 03/07/20 Inactive Lyrica 50 mg capsule RxNorm: 719515 Take 1 Capsule(s) Oral QAM every morning 02/15/20 20 Inactive Lyrica 100 mg capsule RxNorm: 286340 Take 1 Capsule(s) Oral QHS every night at bedtime 02/15/20 Inactive Lyrica 100 mg capsule RxNorm: 633067 Take 1 Capsule(s) Oral QHS every night at bedtime 02/15/20 Inactive Lyrica 50 mg capsule RxNorm: 682609 Take 1 Capsule(s) Oral QAM every morning 02/15/20 Inactive loperamide 2 mg capsule RxNorm: 294552 Take 1 Capsule(s) Oral QID as needed 09/06/19 025 Inactive venlafaxine ER 75 mg capsule,extended release 24 hr RxNorm: 279873 Take 3 Capsule(s) Oral QD 06/12/19 023 Inactive polyethylene glycol 3350 17 gram/dose oral powder RxNorm: 027696 Take 17=1 capful Gram(s) Oral BID as needed mix with 4-8oz of liquid 06/12/19 22 024 Inactive icosapent ethyl 1 gram capsule RxNorm: 2842138 Take 2 Capsule(s) (2 gm) Oral BID with meals 10/07/19 23 023 Inactive Okay to dispense one 2gm tab if you have that available. Levemir FlexTouch U-100 Insulin 100 unit/mL (3 mL) subcutaneous pen RxNorm: 518772 Inject 80 Unit(s) Subcutaneous BID 07/14/19 23 023 Inactive metoprolol succinate ER 200 mg tablet,extended release 24 hr RxNorm: 428594 Take 1 Tablet(s) Oral QD 08/12/19 025 Inactive hydralazine 50 mg tablet RxNorm: 915385 Take 1 Tablet(s) Oral QID 08/12/19 025 Inactive Soft Touch Lancets RxNorm: miscellaneous 03/04/20 24 025 Inactive Novolog Flexpen U-100 Insulin aspart 100 unit/mL (3 mL) subcutaneous RxNorm: 5241505 Insert 30 Unit(s) Subcutaneous TID with meals [...] Planned Activity Notes Codes Status Date Referral: [facility] W[facility]el: [address] [id number] [place]erral[place]ointment Nepfibphy84/06/2025Referral: [facility]/Endocrinology WPtel: [address] [facility] [address] [id number] [place]erral[place] Records [id number]/24/2025Referral: [facility] [address] [facility] [address] [id number] [place]erralRecords Ksngwnog38/08/2023Referral: [facility] WPtel: [address] [facility] [address] [id number] OITjmzpenxTnjptrfom83/12/2022Referral: General CardiologyReferralCompleted 1Referral: General PsychologistReferralClosedReferral: General PsychiatristReferralPatient/Family [...] Sister Jyotsna involved in his care cell# [phone] Guardian: Don (tapan met in person 09/01/21), [...] appointment 05.26.2024 with Jessa Webster MD at [facility]. Start Pioglitazone 15 mg QD. Stop Basaglar insulin. Increase Ozempic 2 mg once wkly. Continue Humalin R U-500 100 units with meals TID. FOLLOW UP 2 MONTHS. If BG >400 add 50 units to next scheduled dose of Humalin R U 500 insulin 06/12/2024
--- OUTSIDE RECORDS SUMMARY | 2024-10-19 18:57 | XMS_ITS | CCD ---
Author Organization Unknown Care Team Providers Care Melt Helper Name Role Phone Arpit VIDALKeeganHarrison Primary Care Provider Leona vailable Unavailable Chronic Care Management Unavaila ble Summary Purpose DataExchange Insurance Providers Payer name Policy type / Coverage type Covered democrat ID Effective Begin Date Effective End Date [place] [id number] Unknown Unknown Medicaid [place] Medicare Part B [id number] Unknown Unknown Family history Sister Brittany Suggs Diagnosis Age At Onset No Family Disease Entered N/A Runs in the family Diagnosis Age At Onset No Known Diseases N/A Sister Blanka Mcduffie Diagnosis Age At Onset No Family Disease Entered N/A Social History Social History Element Codes Description Effec tive Dates Tobacco history SNOMED CT: 252863267 Never smoker 01/16 Sexually Active? Unknown No [...] Snf 09/03/19 [address]: 619275357 No Alcohol Consum ption 09/02/2020 Allergies, Adverse Reactions, Alerts Substance Reaction Codes Entered Date Inactivated Date Status * NO KNOWN FOOD ALLERGIES Gxbqpvt6607/13/2023No Inactive DateActiveLISINOPRILRxNorm: 7558671No Inactive DateActiveMetformin WKnFzkjobq00/28/2020No Inactive DateActive* NO KNOWN ENVIRONMENTAL [id number]/27/2024No Inactive DateActive Problems Condition Codes Effective Dates [...] planning - to document end of life ebmfpzznuacSmzffcn54/24/2024ctiveAmputated toe of right footICD-10: S98.131A ICD-9: 895.009ctiveAnnual [...] E55.9 ICD-9: 268.909/ctiveCallus of heelICD-10: L84 ICD-9: 20290/esolvedGout due to renal impairmentICD-10: M10.30 ICD-9: 274.1005/esolvedHyperhidrosis of palmsICD-10: L74.512 ICD-9: 705.21010/12/2023esolvedHyperlipidemia, unspecifiedICD-10: E78.5 ICD-9: 272.405/esolvedOther ad terminal makeup operator (current) drug therapyICD-10: Z79.899 ICD-9: V58.6905esolvedPain [...] tagICD-10: L91.8 ICD-9: 701.904esolvedCoronary artery disease involving mcgrath coronary artery of mcgrath heart, angina presence unspecifiedICD-10: I25.10 ICD-9: 414.0102/ctiveInappropriate sexual behaviorICD-10: Z72.89 ICD-9: 312.8910/ctivePre-op evaluationICD-10: Z01.818 ICD-9: V72.8403/ctiveSecondary hypertensionICD-10: I15.9 ICD-9: 405.9903/ctiveDepressionICD-10: F32.9 ICD-9: 41428/esolvedDVT (deep venous thrombosis)ICD-10: I82.409 ICD-9: 453.4009/2ResolvedEncounter for [...] to other viral communicable diseasesICD-10: Z20.828 ICD-9: V01.7902/9580DqmqnlqlHxbcrhbvYfahtzq08/28/2020ActiveDiabetes mellitus Type 1Ixcwbdn33/28/2020ActiveAnemia in chronic kidney diseaseICD-10: D63.1 02/12/2020ResolvedHyperlipidemia, unspecifiedICD-10: E78.509Resolved Medications Medication Codes Instructions Start Date Stop Date Status Fill Instructions nystatin 100,000 unit/gram topical powder RxNorm: 045310 Apply 1 Application Topical BID as needed abdominal/breast /groin folds 05/24/19 25 026 Active pregabalin 100 mg capsule RxNorm: 424247 Take 1 Capsule(s) Oral QAM every morning 05/22/19 25 025 Inactive nystatin 100,000 unit/gram topical powder RxNorm: 526255 Apply 1 Application Topical BID as needed abdominal/breast /groin folds 04/11/20 Inactive chlorthalidone 25 mg tablet RxNorm: 327612 Take 1 Tablet(s) Oral QAM every morning 04/06/20 No Stop Date Active pregabalin 150 mg capsule RxNorm: 077729 Take 1 Capsule(s) Oral QHS every night at bedtime 03/31/20 Inactive Vascepa 1 gram capsule RxNorm: 2429562 Take 2 Capsule(s) Oral BID 03/30/20 025 Active rosuvastatin 40 mg tablet RxNorm: 655242 1 TAB ORALLY EVERY EVENING (DX:CORONARY ARTERY DISEASE) 03/28/20 No Stop Date Active venlafaxine ER 75 mg capsule,extended release 24 hr RxNorm: 820207 3 CAPS (225MG) ORALLY DAILY (DX: MOOD DISORDER) 03/28/20 No Stop Date Active pregabalin 100 mg capsule RxNorm: 966592 Take 1 Capsule(s) Oral QAM every morning 03/20/20 Inactive cholecalciferol (vitamin D3) 1,250 mcg (50,000 unit) capsule RxNorm: 191305 Take 1 Capsule(s) Oral QW once a [...] Insulin 100 unit/mL (3 mL) subcutaneous RxNorm: 5310880 Inject 40 Unit(s) Subcutaneous BID 03/07/20 025 Inactive Please dispense one month supply. Humulin R U-500 (Concentrated) Insulin 500 unit/mL subcutaneous soln RxNorm: 077399 Inject 100 Unit(s) Subcutaneous AC before meals [...] PRN) to be use with new Accu [place] meter 03/04/20 Inactive ok to substitute with any covered alternative test strip FreeStyle Chema 2 Sensor kit RxNorm: Use UD as directed 03/02/20 Inactive FreeStyle Chema 2 Sensor kit RxNorm: Use UD as directed 03/02/20 Inactive Pen Needle 30 gauge x 5 RxNorm: Pen(s) Use 1 needle as directed TID 03/02/20 Inactive nystatin 100,000 unit/gram topical powder RxNorm: 997052 Apply 1 Application Topical BID as needed [...] (Concentrated) Insulin 500 unit/mL subcutaneous soln RxNorm: 225222 Inject 100 Unit(s) Subcutaneous TID 02/17/20 24 024 Inactive Humulin R U-500 (Concentrated) Insulin 500 unit/mL subcutaneous soln RxNorm: 495153 Inject 100 Unit(s) Subcutaneous TID 02/10/20 24 024 Inactive Basaglar KwikPen U-100 Insulin 100 unit/mL (3 mL) subcutaneous RxNorm: 2181395 Inject 30 Unit(s) Subcutaneous BID 02/10/20 24 024 Inactive Please dispense one month supply. pregabalin 100 mg capsule RxNorm: 407819 Take 1 Capsule(s) Oral QAM every morning 02/07/20 24 024 Inactive isosorbide mononitrate ER 60 mg tablet,extended release 24 hr RxNorm: 992659 Take 1 Tablet(s) Oral QD 02/01/20 24 025 Active aripiprazole 15 mg tablet RxNorm: 733088 Take 1/2 Tablet(s) Oral QD 02/01/20 24 025 Active torsemide 20 mg tablet RxNorm: 030737 1 TAB ORALLY DAILY (DX: EDEMA) 01/27/20 24 No Stop Date Active potassium chloride ER 20 mEq tablet,extended release(part/cryst) RxNorm: 7130798 2 TABS (40MEQ) ORALLY TWICE DAILY (DX: HYPOKALEMIA) 01/27/20 24 025 Inactive cephalexin 500 mg capsule RxNorm: 473614 Take 1 Capsule(s) Oral QID 12/17/19 24 024 Inactive cephalexin 500 mg capsule RxNorm: 185908 Take 1 Capsule(s) Oral QID 12/17/19 24 024 Inactive acetaminophen 500 mg tablet RxNorm: 701916 (MAX APAP:4GM/24HR) Take 1 Tablet(s) Oral TID as needed for pain 12/10/19 24 024 Inactive torsemide 20 mg tablet RxNorm: 389942 Take 1 Tablet(s) Oral QD 10/26/19 24 [...] %-0.3 % drops in a dropperette RxNorm: 502814 Apply 1-2 Drop(s) Both eyes BID as needed 09/28/19 24 Inactive erythromycin 5 mg/gram (0.5 %) eye ointment RxNorm: 855471 Apply 1 Application Both eyes QHS every night at bedtime Instill ~1 cm ribbon into affected eye 09/28/19 24 Inactive Artificial Tears (PF) 0.1 %-0.3 % drops in a dropperette RxNorm: 566656 Apply 1-2 Drop(s) Both eyes BID as needed 09/28/19 24 Inactive erythromycin 5 mg/gram (0.5 %) eye ointment RxNorm: 682094 Apply 1 Application Both eyes QHS every night at bedtime Instill ~1 cm ribbon into affected eye 09/28/19 24 Inactive acetaminophen 500 mg tablet RxNorm: 523171 (MAX APAP:4GM/24HR) Take 1 Tablet(s) Oral TID as needed for pain 09/24/19 24 024 Inactive carvedilol 25 mg tablet RxNorm: 019123 Take 1 Tablet(s) Oral QD 09/08/19 24 No Stop Date Active pregabalin 100 mg capsule RxNorm: 411840 Take 1 Capsule(s) Oral QAM every morning 09/07/19 24 024 Inactive ezetimibe 10 mg tablet RxNorm: 495418 Take 1 Tablet(s) Oral QD 07/13/19 24 025 Inactive bisacodyl 10 mg rectal suppository RxNorm: 101419 Insert 1 Suppository Rectal QD as needed 07/13/19 No Stop Date Active polyethylene glycol 3350 17 gram/dose oral powder RxNorm: 532362 Take 17 Gram(s) Oral BID as needed mix in 4-8ox water 07/13/19 24 025 Inactive ketoconazole 2 % shampoo RxNorm: 134889 Apply 1 Application Topical UD as directed 07/13/19 No Stop Date Active Ozempic 1 mg/dose (4 mg/3 mL) subcutaneous pen injector RxNorm: 0345928 Inject 1 Milligram(s) Subcutaneous QW once a week 07/13/19 No Stop Date Active Guaifenesin AC 10 mg-100 mg/5 mL oral liquid RxNorm: 041817 Take 10 Milliliter(s) Oral Q4H every four hours as needed 07/13/19 No Stop Date Active ammonium lactate 12 % topical cream RxNorm: 420862 Apply 1 Application Topical BID 07/13/19 24 025 Inactive hydrocortisone 2.5 % topical cream RxNorm: 063993 Apply 1 Application Topical BID as needed 07/13/19 No Stop Date Active rosuvastatin 20 mg sprinkle capsule RxNorm: 9875663 Take 1 Capsule(s) Oral QD 07/13/19 24 025 Inactive rosuvastatin 40 mg tablet RxNorm: 961896 Take 1 Tablet(s) Oral QPM every evening 07/13/19 024 Inactive aripiprazole 15 mg tablet RxNorm: 155043 Take 1/2 Tablet(s) Oral QD 07/13/19 24 024 Inactive isosorbide mononitrate ER 60 mg tablet,extended release 24 hr RxNorm: 533310 Take 1 Tablet(s) Oral QD 07/13/19 24 024 Inactive Vascepa 1 gram capsule RxNorm: 2224863 Take 2 Capsule(s) Oral BID 07/13/19 24 024 Inactive venlafaxine ER 75 mg capsule,extended release 24 hr RxNorm: 794564 Take 3 Capsule(s) Oral QD 07/13/19 24 024 Inactive Tusharagldestin Enrique U-100 Insulin 100 unit/mL (3 mL) subcutaneous RxNorm: 8177303 Inject 30U SubQ twice daily 07/07/19 24 024 Inactive Please dispense one month supply. Tusharagldestin MendenhallPen U-100 Insulin 100 unit/mL (3 mL) subcutaneous RxNorm: 3035910 Inject 30U SubQ twice daily 07/07/19 24 024 Inactive Please dispense one month supply. pregabalin 150 mg capsule RxNorm: 056469 Take 1 Capsule(s) Oral QHS every night at bedtime 07/05/19 24 024 Inactive pregabalin 150 mg capsule RxNorm: 344070 Take 1 Capsule(s) Oral QHS every night at bedtime 07/05/19 24 024 Inactive polyethylene glycol 3350 17 gram/dose oral powder RxNorm: 480833 Take 1 Packet Oral QD as needed (1 packet = 17g) mix with 4-8oz of liquid 06/15/19 24 024 Inactive bisacodyl 10 mg rectal suppository RxNorm: 414187 Insert one suppository per rectum once daily as needed for constipation 06/15/19 24 024 Inactive bisacodyl 10 mg rectal suppository RxNorm: 359642 Insert one suppository per rectum once daily as needed for constipation 06/15/19 24 024 Inactive pregabalin 100 mg capsule RxNorm: 352383 Take 1 Capsule(s) Oral QAM every morning 04/27/20 23 024 Inactive Levemir FlexPen 100 unit/mL (3 mL) solution subcutaneous insulin pen RxNorm: 959687 Inject 30 Unit(s) Subcutaneous BID 04/27/20 23 024 Inactive rosuvastatin 40 mg tablet RxNorm: 575641 Take 1 Tablet(s) Oral QPM every evening 04/16/20 23 024 Inactive D/C rosuvastatin 20mg venlafaxine ER 75 mg capsule,extended release 24 hr RxNorm: 103176 Take 3 Capsule(s) Oral QD 04/14/20 23 023 Inactive pregabalin 100 mg capsule RxNorm: 250027 Take 1 Capsule(s) Oral QAM every morning 11/29/ 023 Inactive Accu-Chek Guide Glucose Meter RxNorm: [...] strip clotrimazole 1 % topical cream RxNorm: 032721 Take apply topically to abdominal folds twice daily for 14 days 03/12/20 024 Inactive Ozempic 1 mg/dose (4 mg/3 mL) subcutaneous pen injector RxNorm: 6792505 Inject 1 Milligram(s) Subcutaneous QW once a week 03/11/20 023 Inactive rosuvastatin 20 mg tablet RxNorm: 954728 Take 1 Tablet(s) Oral QD 02/26/20 23 023 Inactive d/c pravastatin 80mg Ozempic 1 mg/dose (4 mg/3 mL) subcutaneous pen injector RxNorm: 7456734 Inject 1 Milligram(s) Subcutaneous QW once a week 02/20/20 23 023 Inactive pregabalin 150 mg capsule RxNorm: 987732 Take 1 Capsule(s) Oral HS at bed time 02/19/20 23 023 Inactive pregabalin 100 mg capsule RxNorm: 237144 Take 1 Capsule(s) Oral QAM every morning 02/18/20 023 Inactive venlafaxine ER 75 mg capsule,extended release 24 hr RxNorm: 980121 Take 3 Capsule(s) Oral QD 02/04/20 23 023 Inactive FreeStyle Chema 2 Sensor kit RxNorm: use as directed 02/04/20 023 Inactive FreeStyle Chema 2 Sensor kit RxNorm: use as directed 02/04/20 23 024 Inactive fluconazole 150 mg tablet RxNorm: 769682 Take 1 Tablet(s) Oral on day 3 and on day 6 02/03/20 024 Inactive venlafaxine ER 150 mg capsule,extended release 24 hr RxNorm: 795865 Take 1 Capsule(s) Oral QD 02/03/20 23 023 Inactive chlorthalidone 25 mg tablet RxNorm: 641361 Take 1 Tablet(s) Oral QAM every morning 02/03/20 23 024 Inactive acetaminophen 500 mg tablet RxNorm: 473441 1 TABLET ORALLY 3 TIMES DAILY (MAX APAP:4GM/24HR) 12/15/19 23 023 Inactive clotrimazole 1 % topical cream RxNorm: 177688 apply 1g topically to top of feet and in between toes BID 12/09/19 23 025 Inactive potassium chloride ER 20 mEq tablet,extended release RxNorm: 753306 Take 1 Tablet(s) Oral BID 12/09/19 024 Inactive d/c 20mEq once daily (sent from hospital) nystatin 100,000 unit/gram topical powder RxNorm: 853613 APPLY TO AFFECTED AREAS TOPICALLY 2 TIMES DAILY 11/21/19 23 023 Inactive Nystop 100,000 unit/gram topical powder RxNorm: 307796 Apply to abd folds, under breasts and L side of groin Topical BID x 14 days, then BID PRN 11/20/19 023 Inactive dx: yeast dermatitis [place] Ultra Strength 4 %-30 %-10 % topical cream RxNorm: 704806 Apply 1 Gram(s) Topical QID PRN to feet and legs for neuropathic pain 11/11/19 024 Inactive clotrimazole 1 % topical cream RxNorm: 178151 Apply 1/2 Gram(s) Topical BID Apply to affected areas of groin, periarea, and abdominal topically 2 times daily 11/10/19 23 023 Inactive hydrocortisone 2.5 % topical cream RxNorm: 508309 Apply 1/2 Gram(s) Topical BID as needed 11/10/19 23 024 Inactive Levemir FlexPen 100 unit/mL (3 mL) solution subcutaneous insulin pen RxNorm: 259900 Inject 30 Unit(s) Subcutaneous BID 10/07/19 23 023 Inactive Humulin R U-500 (Concentrated) Insulin 500 unit/mL subcutaneous soln RxNorm: 306352 Inject 100 Unit(s) Subcutaneous TID 10/07/19 23 024 Inactive Ozempic 0.25 mg or 0.5 mg (2 mg/3 mL) subcutaneous pen injector RxNorm: 1869410 Inject 1/2 Milligram(s) Subcutaneous QW once a week 10/07/19 024 Inactive aripiprazole 15 mg tablet RxNorm: 896883 1/2 TAB (7.5MG) ORALLY DAILY (DX:MAJOR DEPRESSIVE DISORDER) 09/23/19 023 Inactive Accu-Chek Guide test strips RxNorm: Use 1 Test Strip QID 09/15/19 023 Inactive ok to substitute with any covered alternative test strip Lancets,Thin 28 gauge RxNorm: Use 1 as directed QID 09/15/19 23 023 Inactive torsemide 20 mg tablet RxNorm: 448109 Take 1 Tablet(s) Oral BID 09/09/19 23 024 Inactive d/c once daily dosing carvedilol 25 mg tablet RxNorm: 788111 Take 1 Tablet(s) Oral QD 08/25/19 23 024 Inactive pregabalin 150 mg capsule RxNorm: 791913 1 Capsule(s) Oral HS at bed time 08/18/19 23 023 Inactive pregabalin 100 mg capsule RxNorm: 387210 1 Capsule(s) Oral QAM every morning 08/18/19 23 023 Inactive carvedilol 25 mg tablet RxNorm: 869164 1 Tablet(s) Oral QD 07/28/19 23 023 Inactive lisinopril 20 mg tablet RxNorm: 662193 Give 1 Tablet(s) Oral QD 07/28/19 23 023 Inactive Lyrica 150 mg capsule RxNorm: 274029 Take 1 Capsule(s) Oral QHS every night at bedtime 07/19/19 23 023 Inactive d/c 100mg dose Diflucan 150 mg tablet RxNorm: 662923 Take 1 Tablet(s) Oral QD repeat on day 3 and 6 07/19/19 23 023 Inactive pregabalin 100 mg capsule RxNorm: 260809 Take 1 Capsule(s) Oral QAM every morning 07/19/19 23 023 Inactive gatifloxacin 0.5 % eye drops RxNorm: 272637 Instill 1 Drop(s) as directed TID Instill 1 drop in to affected eye(s) starting 1 day prior to surgery and continue until gone (do not exceed 4 weeks). 07/13/19 23 023 Inactive carvedilol 25 mg tablet RxNorm: 191705 2 Tablet(s) Oral BID 07/13/19 023 Inactive Humulin R Regular U-100 Insulin 100 unit/mL injection solution RxNorm: 069157 85 Unit(s) Injection TID 07/13/19 023 Inactive ketorolac 0.5 % eye drops RxNorm: 971651 Instill 1 Drop(s) as directed QID Instill 1 drop into affected eye(s) 4 times daily starting 1 day prior to surgery and continue until gone (do not exceed 4 weeks). 07/13/19 023 Inactive Diflucan 150 mg tablet RxNorm: 944765 Take 1 Tablet(s) Oral QD repeat on day 3 and 6 06/30/19 023 Inactive Accu-Chek Guide test strips RxNorm: Use 1 Test Strip QID Use 1 test strip to monitor blood glucose 4 times daily and as needed. Dx:E11.42. 06/23/19 23 023 Inactive ok to substitute with any covered alternative test strip dextromethorphan-gu aifenesin 10 mg-100 mg/5 mL oral liquid RxNorm: 179374 Take 10 Milliliter(s) Oral every 4 hours as needed for cough 06/19/19 23 023 Inactive dextromethorphan-gu aifenesin 10 mg-100 mg/5 mL oral liquid RxNorm: 891810 Take 10 Milliliter(s) Oral every 4 hours as needed for cough 06/19/19 23 023 Inactive Lyrica 150 mg capsule RxNorm: 351033 Take 1 Capsule(s) Oral QHS every night at bedtime 06/18/19 023 Inactive d/c 100mg dose aripiprazole 15 mg tablet RxNorm: 806953 1/2 TAB (7.5MG) ORALLY DAILY (DX:MAJOR DEPRESSIVE DISORDER) 06/05/19 023 Inactive pregabalin 100 mg capsule RxNorm: 278396 1 Capsule(s) Oral QAM every morning 06/02/19 023 Inactive Banophen 50 mg capsule RxNorm: 0308276 Take 1 Capsule(s) Oral Q6H every 6 hours as needed 05/19/19 No Stop Date Active Novolog Flexpen U-100 Insulin aspart 100 unit/mL (3 mL) subcutaneous RxNorm: 9163188 Inject 10 Unit(s) Subcutaneous QHS every night at bedtime with nighttime snack 04/08/20 022 Inactive Novolog Flexpen U-100 Insulin aspart 100 unit/mL (3 mL) subcutaneous RxNorm: 6881625 Inject 42 Unit(s) Subcutaneous TID in addition to sliding scale 04/08/20 022 Inactive d/c 36u albuterol sulfate HFA 90 mcg/actuation aerosol inhaler RxNorm: 9142517 Take 2 Puff(s) Inhalation Q4H every four hours as needed as needed for SOB, cough, or wheezing 04/07/20 22 030 Active Banophen 50 mg capsule RxNorm: 2238813 Take 1 Capsule(s) Oral Q6H every 6 hours as needed 04/06/20 023 Inactive diphenhydramine 50 mg tablet RxNorm: 1642470 Take 1 Tablet(s) Oral Q6H every 6 hours as needed 04/06/20 22 022 Inactive diphenhydramine 50 mg tablet RxNorm: 9053418 1 Tablet(s) Oral Q6H every 6 hours as needed 04/06/20 22 022 Inactive Abilify 15 mg tablet RxNorm: 915063 1/2 Tablet(s) Oral QD 03/10/20 22 023 Inactive Shingrix (PF) 50 mcg/0.5 mL intramuscular suspension, kit RxNorm: 7429594 Administer 1/2 Milliliter(s) Intramuscular QD one time shingrix step 2 ( step 1 given 11/04/21) WITH needle - Nursing please administer upon arrival and once administered post a bridge message with date of administration, reel operator, expiration date, and lot# so we can update [facility] 02/18/20 22 022 Inactive dispense with needle Shingrix (PF) 50 mcg/0.5 mL intramuscular suspension, kit RxNorm: 0521535 Administer 1/2 Milliliter(s) Intramuscular QD one time shingrix step 2 ( step 1 given 11/04/21) WITH needle - Nursing please administer upon arrival and once administered post a bridge message with date of administration, reel operator, expiration date, and lot# so we can update [facility] 02/18/20 22 022 Inactive dispense with needle polyethylene glycol 3350 17 gram/dose oral powder RxNorm: 213619 Take 17=1 capful Gram(s) Oral QD mix with 4-8oz of liquid 01/08/20 22 025 Inactive take this in addition to BID prn order Lyrica 100 mg capsule RxNorm: 922959 Take 1 Capsule(s) Oral QAM every morning 01/08/20 22 022 Inactive d/c 50mg dose acetaminophen 500 mg tablet RxNorm: 838522 Take 1 Tablet(s) Oral TID 01/08/20 22 022 Inactive d/c PRN order Lyrica 150 mg capsule RxNorm: 669724 Take 1 Capsule(s) Oral QHS every night at bedtime 01/08/20 22 023 Inactive d/c 100mg dose Abilify 5 mg tablet RxNorm: 261467 Take 1 Tablet(s) Oral QD take 1 tab po QD #30 refill 5 dx: MDD 12/12/19 22 022 Inactive Abilify 5 mg tablet RxNorm: 794763 Take 1 Tablet(s) Oral QD take 1 tab po QD #30 refill 5 dx: MDD 12/12/19 22 022 Inactive Novolog Flexpen U-100 Insulin aspart 100 unit/mL (3 mL) subcutaneous RxNorm: 1066403 Inject 42 Unit(s) Subcutaneous TID in addition to sliding scale 12/10/19 22 022 Inactive d/c 36u chlorthalidone 25 mg tablet RxNorm: 497586 Take 1 Tablet(s) Oral QAM every morning 12/10/19 22 023 Inactive pregabalin 50 mg capsule RxNorm: 980886 Take 1 Capsule(s) Oral QAM every morning 11/12/19 22 022 Inactive tetanus-diphtheria toxoids-Td 2 Lf unit-2 Lf unit/0.5 mL IM suspension RxNorm: 139 Take 0.5 Miscellaneous Intramuscular 11/12/19 22 022 Inactive need tdap - nursing to administer upon arrival pregabalin 50 mg capsule RxNorm: 549364 Take 1 Capsule(s) Oral QAM every morning 10/16/19 22 022 Inactive pregabalin 50 mg capsule RxNorm: 736194 Take 1 Capsule(s) Oral QAM every morning 10/16/19 22 022 Inactive pregabalin 50 mg capsule RxNorm: 044752 1 Capsule(s) Oral QAM every morning 10/15/19 22 022 Inactive Shingrix (PF) 50 mcg/0.5 mL intramuscular suspension, kit RxNorm: 1069219 Administer 1/2 Milliliter(s) Intramuscular one time Nursing please administer upon arrival and once administered post a bridge message with date of administration, reel operator, expiration date, and lot# so we can update [facility]. 10/09/19 22 022 Inactive shingrix step 1 Shingrix (PF) 50 mcg/0.5 mL intramuscular suspension, kit RxNorm: 0894361 Administer 1/2 Milliliter(s) Intramuscular one time Nursing please administer upon arrival and once administered post a bridge message with date of administration, reel operator, expiration date, and lot# so we [...] aspart 100 unit/mL (3 mL) subcutaneous RxNorm: 8729625 Inject 10 Unit(s) Subcutaneous QHS every night at bedtime with nighttime snack 10/08/19 22 Inactive Shingrix (PF) 50 mcg/0.5 mL intramuscular suspension, kit RxNorm: 5598542 ADMINISTER 2-DOSE SERIES PER CDC GUIDELINES 10/08/19 22 Active Shingrix (PF) 50 mcg/0.5 mL intramuscular suspension, kit RxNorm: 4542691 ADMINISTER 2-DOSE SERIES PER CDC GUIDELINES 10/08/19 22 Inactive Novolog Flexpen U-100 Insulin aspart 100 unit/mL (3 mL) subcutaneous RxNorm: 1093157 Inject 36 Unit(s) Subcutaneous TID in addition to sliding scale 10/08/19 22 Inactive cholecalciferol (vitamin D3) 1,250 mcg (50,000 unit) capsule RxNorm: 967690 Take 1 Capsule(s) Oral QW once a week 10/08/19 Inactive Novofine Autocover 30 gauge x 1/3 needle RxNorm: Use 1 Miscellaneous UD as directed Use 1 needle as directed to administer insulin 5 times a day Dx:E11.42. 10/03/19 22 Inactive ok to substitute with any covered alternative pen needle benzoyl peroxide 10 % topical cleanser RxNorm: 254990 Apply 1 Application Topical QD apply to face, wash rinse and dry once daily (may change to QOD if drying) 08/19/19 22 022 Inactive (%covered by insurance) #60ml refill 11 dx: acne benzoyl peroxide 10 % topical cleanser RxNorm: 691556 Apply 1 Application Topical QD apply to face, wash rinse and dry once daily (may change to QOD if drying) 08/19/19 22 022 Inactive (%covered by insurance) #60ml refill 11 dx: acne benzoyl peroxide 10 % topical cleanser RxNorm: 639036 Apply 1 Application Topical QD apply to face, wash rinse and dry once daily (may change to QOD if drying) 08/19/19 22 022 Inactive (%covered by insurance) #60ml refill 11 dx: acne Lyrica 50 mg capsule RxNorm: 741778 Take 1 Capsule(s) Oral QAM every morning Take 1 capsule by mouth once daily 08/19/19 22 022 Inactive benzoyl peroxide 10 % topical cleanser RxNorm: 217215 Apply 1 Application Topical QD apply to face, wash rinse and dry once daily (may change to QOD if drying) 08/19/19 22 022 Inactive (%covered by insurance) #60ml refill 11 dx: acne Lyrica 100 mg capsule RxNorm: 093433 Take 1 Capsule(s) Oral QHS every night at bedtime Take 1 capsule by mouth once daily at bedtime 08/19/19 22 022 Inactive Lyrica 100 mg capsule RxNorm: 533421 Take 1 Capsule(s) Oral QHS every night at bedtime Take 1 capsule by mouth once daily at bedtime 08/16/19 22 022 Inactive Lyrica 50 mg capsule RxNorm: 225799 Take 1 Capsule(s) Oral QAM every morning Take 1 capsule by mouth once daily 08/16/19 22 022 Inactive Levemir FlexTouch U-100 Insulin 100 unit/mL (3 mL) subcutaneous pen RxNorm: 312239 Inject 86 Unit(s) Subcutaneous BID 08/05/19 22 022 Inactive d/c 83units BID Lyrica 100 mg capsule RxNorm: 333083 Take 1 Capsule(s) Oral QHS every night at bedtime Take 1 capsule by mouth once daily at bedtime 07/14/19 22 022 Inactive Lyrica 50 mg capsule RxNorm: 689206 Take 1 Capsule(s) Oral QAM every morning Take 1 capsule by mouth once daily 07/14/19 22 022 Inactive Levemir FlexTouch U-100 Insulin 100 unit/mL (3 mL) subcutaneous pen RxNorm: 405946 Inject 83 Unit(s) Subcutaneous BID 07/08/19 22 [...] test strip hydralazine 50 mg tablet RxNorm: 551993 Take 1 Tablet(s) Oral QID 05/05/20 21 022 Inactive venlafaxine ER 225 mg tablet,extended release 24 hr RxNorm: 238232 Take 1 Tablet(s) Oral QD 05/05/20 21 021 Inactive venlafaxine ER 225 mg tablet,extended release 24 hr RxNorm: 403623 Take 1 Tablet(s) Oral QD 05/05/20 022 Inactive isosorbide mononitrate ER 30 mg tablet,extended release 24 hr RxNorm: 755706 Take 1 Tablet(s) Oral QD 05/05/20 024 Inactive hydralazine 50 mg tablet RxNorm: 558188 Take 1 Tablet(s) Oral QID 05/05/20 021 Inactive aspirin 81 mg tablet,delayed release RxNorm: 588907 Take 1 Tablet(s) Oral QD 03/31/20 022 Inactive Vitamin D2 1,250 mcg (50,000 unit) capsule RxNorm: 7034441 Take 1 Capsule(s) Oral QW once a week x 12 weeks 03/31/20 Inactive Vitamin D2 1,250 mcg (50,000 unit) capsule RxNorm: 4413140 Take 1 Capsule(s) Oral QW once a week 03/31/20 Inactive Zetia 10 mg tablet RxNorm: 949961 Take 1 Tablet(s) Oral QD 03/31/20 024 Inactive Zetia 10 mg tablet RxNorm: 173733 Take 1 Tablet(s) Oral QD 03/31/20 021 Inactive hydralazine 25 mg tablet RxNorm: 694650 Take 1 Tablet(s) Oral QID 03/31/20 021 Inactive hydralazine 25 mg tablet RxNorm: 595554 Take 1 Tablet(s) Oral QID 03/31/20 021 Inactive hydralazine 10 mg tablet RxNorm: 301599 Take 1 Tablet(s) Oral QID 03/03/20 021 Inactive cephalexin 500 mg tablet RxNorm: 775403 Take 1 Tablet(s) Oral QID 02/27/20 021 Inactive cephalexin 500 mg tablet RxNorm: 499444 Take 1 Tablet(s) Oral QID 02/27/20 021 Inactive lisinopril 40 mg tablet RxNorm: 825882 Take 1 Tablet(s) Oral QD 02/11/20 023 Inactive Eliquis 5 mg tablet RxNorm: 6037924 Take 1 Tablet(s) Oral BID 01/05/20 21 025 Inactive Eliquis 5 mg tablet RxNorm: 2460513 Take 2 Tablet(s) Oral QD 01/01/20 21 021 Inactive Lyrica 50 mg capsule RxNorm: 043066 Take 1 Capsule(s) Oral QAM every morning 12/24/19 21 021 Inactive Lyrica 100 mg capsule RxNorm: 002759 Take 1 Capsule(s) Oral QHS every night at bedtime 12/24/19 021 Inactive clotrimazole 1 % topical cream RxNorm: 201721 Apply to right foot and toes Topical BID 12/04/19 21 023 Inactive metoprolol succinate ER 200 mg tablet,extended release 24 hr RxNorm: 462499 Take 1 Tablet(s) Oral QD 12/04/19 023 Inactive ciprofloxacin 500 mg tablet RxNorm: 725376 Take 1 Tablet(s) Oral QD 11/30/19 21 021 Inactive DX ofloxacin otic drops Accu-Chek Guide test strips RxNorm: USE 1 TO CHECK GLUCOSE 4 TIMES DAILY AND NEEDED 11/15/19 21 023 Inactive Blood Glucose Test strips RxNorm: Use 1 Test Strip QID at PRN 11/05/19 21 023 Inactive E11.42 lisinopril 30 mg tablet RxNorm: 922371 Take 1 Tablet(s) Oral QD 10/30/19 021 Inactive lisinopril 20 mg tablet RxNorm: 161783 Take 1 Tablet(s) Oral QD 10/23/19 021 Inactive lisinopril 20 mg tablet RxNorm: 119279 Take 1 Tablet(s) Oral QD 10/23/19 21 021 Inactive lisinopril 10 mg tablet RxNorm: 039872 Take 1 Tablet(s) Oral QD 10/02/19 21 021 Inactive icosapent ethyl 1 gram capsule RxNorm: 6185778 Take 2 Capsule(s) (2 gm) Oral BID with meals 09/12/19 21 024 Inactive Okay to dispense one 2gm tab if you have that available. icosapent ethyl 1 gram capsule RxNorm: 2445856 Take 2 Capsule(s) Oral BID 09/12/19 21 021 Inactive Okay to dispense one 2gm tab if you have that available. amlodipine 10 mg tablet RxNorm: 600183 Take 1 Tablet(s) Oral QD 09/04/19 021 Inactive aspirin 81 mg tablet,delayed release RxNorm: 038827 Take 1 Tablet(s) Oral QD 09/04/19 21 021 Inactive Levemir FlexTouch U-100 Insulin 100 unit/mL (3 mL) subcutaneous pen RxNorm: 266669 Inject 150 Unit(s) Subcutaneous BID 09/04/19 022 Inactive venlafaxine ER 150 mg tablet,extended release 24 hr RxNorm: 919987 Take 1 Tablet(s) Oral QD 09/04/19 021 Inactive clotrimazole-betame thasone 1 %-0.05 % topical cream RxNorm: 173681 Apply to rash on red area on left abdomen/chest Topical BID 08/10/19 21 021 Inactive amlodipine 5 mg tablet RxNorm: 406027 Take 1 Tablet(s) Oral QD 07/31/19 021 Inactive cephalexin 500 mg tablet RxNorm: 494799 Take 1 Tablet(s) Oral BID BID - Twice Daily 07/31/19 021 Inactive Start 08/01/20 pantoprazole 40 mg tablet,delayed release RxNorm: 576423 Take 1 Tablet(s) Oral QAM every morning 07/08/19 025 Inactive senna 8.6 mg tablet RxNorm: 133795 Take 1 Tablet(s) Oral QD 07/08/19 21 025 Inactive carbamazepine 200 mg tablet RxNorm: 643744 Take 1 Tablet(s) Oral BID 07/08/19 21 025 Inactive clopidogrel 75 mg tablet RxNorm: 632803 Take 1 Tablet(s) Oral QD 07/08/19 21 021 Inactive Blood Glucose Test strips RxNorm: Use 1 Test Strip QID at PRN 07/08/19 21 021 Inactive E11.42 Novolog Flexpen U-100 Insulin aspart 100 unit/mL (3 mL) subcutaneous RxNorm: 3898809 Administer per sliding scale Milliliter(s) Subcutaneous TID 151-200: 10 u; 201-250: 20 u; 251-300: 30 u; 301-350: 40 u; 351-400: 50 u. 07/08/19 21 022 Inactive lisinopril 5 mg tablet RxNorm: 641921 Take 1 Tablet(s) Oral QD 07/08/19 21 021 Inactive Novolog Flexpen U-100 Insulin aspart 100 unit/mL (3 mL) subcutaneous RxNorm: 4094910 Inject 85 Unit(s) Subcutaneous TID 07/08/19 022 Inactive pravastatin 80 mg tablet RxNorm: 780682 Take 1 Tablet(s) Oral QHS every night at bedtime 07/08/19 023 Inactive clotrimazole 1 % topical cream RxNorm: 535095 Apply to bilateral groin areas Topical BID 07/08/19 022 Inactive metoprolol succinate ER 200 mg tablet,extended release 24 hr RxNorm: 284694 Take 1 Tablet(s) Oral QD 07/08/19 021 Inactive Vitamin D3 25 mcg (1,000 unit) tablet RxNorm: 539688 Take 1 Tablet(s) Oral QD 07/08/19 021 Inactive isosorbide dinitrate 30 mg tablet RxNorm: 013549 Take 1 Tablet(s) Oral QD 07/08/19 021 Inactive Levemir FlexTouch U-100 Insulin 100 unit/mL (3 mL) subcutaneous pen RxNorm: 736885 Inject 140 Unit(s) Subcutaneous BID 07/08/19 21 021 Inactive torsemide 20 mg tablet RxNorm: 668777 Take 1 Tablet(s) Oral QD 07/08/19 21 023 Inactive venlafaxine 75 mg tablet RxNorm: 877272 Take 1 Tablet(s) Oral QD 07/08/19 21 021 Inactive acetaminophen 500 mg tablet RxNorm: 606121 Take 1 Tablet(s) Oral TID as needed for headache 06/18/19 21 021 Inactive acetaminophen 500 mg tablet RxNorm: 217940 Take 1 Tablet(s) Oral TID as needed for headache 06/18/19 21 021 Inactive Lyrica 100 mg capsule RxNorm: 614805 Take 1 Capsule(s) Oral QHS every night at bedtime 06/11/19 21 021 Inactive Lyrica 50 mg capsule RxNorm: 967914 Take 1 Capsule(s) Oral QAM every morning 06/10/19 21 021 Inactive hydrocortisone 2.5 % topical cream RxNorm: 528876 Apply to bilateral groin creases Topical BID 05/15/20 20 021 Inactive clotrimazole 1 % topical cream RxNorm: 647300 Apply to bilateral groin areas Topical BID 05/15/20 20 021 Inactive Lyrica 50 mg capsule RxNorm: 933529 Take 1 Capsule(s) Oral QAM every morning 05/14/20 20 020 Inactive Lyrica 100 mg capsule RxNorm: 004819 Take 1 Capsule(s) Oral QHS every night [...] Inactive Nystop 100,000 unit/gram topical powder RxNorm: 030926 Apply to abd folds, under breasts and L side of groin Topical BID x 14 days, then BID PRN 04/08/20 20 Inactive dx: yeast dermatitis Lyrica 100 mg capsule RxNorm: 481786 Take 1 Capsule(s) Oral QHS every night at bedtime 03/13/20 20 Inactive Lyrica 50 mg capsule RxNorm: 589867 Take 1 Capsule(s) Oral QAM every morning 03/13/20 20 Inactive ketoconazole 2 % shampoo RxNorm: 058471 Apply Topical two times a week with showers 03/11/20 20 024 Inactive cholecalciferol (vitamin D3) 50 mcg (2,000 unit) tablet RxNorm: 967435 Take 1 Tablet(s) Oral QD 03/11/20 20 021 Inactive Zetia 10 mg tablet RxNorm: 785756 Take 1 Tablet(s) Oral QD 03/07/20 20 021 Inactive Zetia 10 mg tablet RxNorm: 836068 Take 1 Tablet(s) Oral QD 03/07/20 20 Inactive Lyrica 50 mg capsule RxNorm: 385193 Take 1 Capsule(s) Oral QAM every morning 02/15/20 20 Inactive Lyrica 100 mg capsule RxNorm: 432513 Take 1 Capsule(s) Oral QHS every night at bedtime 02/15/20 20 Inactive Lyrica 100 mg capsule RxNorm: 147652 Take 1 Capsule(s) Oral QHS every night at bedtime 02/15/20 20 020 Inactive Lyrica 50 mg capsule RxNorm: 694025 Take 1 Capsule(s) Oral QAM every morning 02/15/20 20 Inactive metoprolol succinate ER 200 mg tablet,extended release 24 hr RxNorm: 199341 Take 1 Tablet(s) Oral QD 08/12/19 025 Inactive loperamide 2 mg capsule RxNorm: 841499 Take 1 Capsule(s) Oral QID as needed 09/06/19 025 Inactive hydralazine 50 mg tablet RxNorm: 373824 Take 1 Tablet(s) Oral QID 08/12/19 23 025 Inactive Soft Touch Lancets RxNorm: miscellaneous 03/04/20 24 025 Inactive venlafaxine ER 75 mg capsule,extended release 24 hr RxNorm: 558941 Take 3 Capsule(s) Oral QD 06/12/19 22 023 Inactive polyethylene glycol 3350 17 gram/dose oral powder RxNorm: 730437 Take 17=1 capful Gram(s) Oral BID as needed mix with 4-8oz of liquid 06/12/19 22 024 Inactive icosapent ethyl 1 gram capsule RxNorm: 7923422 Take 2 Capsule(s) (2 gm) Oral BID with meals 10/07/19 23 023 Inactive Okay to dispense one 2gm tab if you have that available. Levemir FlexTouch U-100 Insulin 100 unit/mL (3 mL) subcutaneous pen RxNorm: 941416 Inject 80 Unit(s) Subcutaneous BID 07/14/19 23 023 Inactive Novolog Flexpen U-100 Insulin aspart 100 unit/mL (3 mL) subcutaneous RxNorm: 2374114 Insert 30 Unit(s) Subcutaneous TID with meals [...] Planned Activity Notes Codes Status Date Referral: [facility]Imaging WPtel: [address] [place], [place] [id number] USReferralAppointment [id number]/06/2025Referral: [facility]/Endocrinology WPtel: [address] [facility] 3 [id number] USReferralNo Records [id number]/24/2025Referral: [facility] WPtel: [address] , [address] [id number] USReferralRecords [id number]/08/2023Referral: [facility] WPtel: [address] [facility] [address] [id number]/12/2022eferral: General CardiologyReferralCompleted 1Referral: General PsychologistReferralClosedReferral: General PsychiatristReferralPatient/Family [...] Sister Jyotsna involved in his care cell# [phone] Guardian: Giulia (tapan met in person 09/01/21), [...] appointment 05.26.2024 with Jessa Webster MD at [facility]. Start Pioglitazone 15 mg QD. Stop Basaglar insulin. Increase Ozempic 2 mg once wkly. Continue Humalin R U-500 100 units with meals TID. FOLLOW UP 2 MONTHS. If BG >400 add 50 units to next scheduled dose of Humalin R U 500 insulin 06/12/2024
--- OUTSIDE RECORDS SUMMARY | 2024-11-10 20:42 | XMS_ITS | CCD ---
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 Unknown No [...] Unknown Detention 09/03/[address]: 290737025 No Alcohol Consum ption 09/02/2020 Allergies, Adverse Reactions, Alerts Substance Reaction Codes Entered Date Inactivated Date Status * NO KNOWN FOOD ALLERGIES Jxsorys1707/13/2023No Inactive DateActiveLISINOPRILRxNorm: 248303002/12/2020No Inactive DateActiveMetformin IVrGamnuci02/28/2020No Inactive DateActive* NO KNOWN ENVIRONMENTAL PIGAVKLBOZuzzbyj98/27/2024No Inactive DateActive Problems Condition Codes Effective Dates Condition St atus Amputated toe of right foot ICD-10: S98. 131A ICD-9: 895.005/5ActiveHypercoagulable stateICD-10: D68.59 ICD-9: 289.8105/5ActiveHypokalemiaICD-10: E87.6 ICD-9: 276.805/5ActiveLower extremity edemaICD-10: R60.0 ICD-9: 782.305/5ActiveMajor depression, recurrentICD-10: F33.9 ICD-9: 296.3005/5ActiveOnychogryposisICD-10: L60.2 ICD-9: 703.80/5ActivePulmonary noduleSNOMED CT: 434452664 ICD-10: R91.1 ICD-9: 793.11055ActiveRecurrent major depressive disorder, in partial remissionICD-10: F33.41 ICD-9: 296.3505/5ActiveStage 2 chronic 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ICD-10: E11.22 ICD-9: 250.40055ActiveType 2 diabetes mellitus with diabetic polyneuropathy, with long-term current use of insulinICD-10: E11.42 ICD-9: 250.60055ActivePressure ulcer of left calf, unstageableICD-10: L89.890 ICD-9: 707.0910/10/2024ResolvedConstipation by delayed colonic transitICD-10: K59.01 ICD-9: 564.01045ActiveLoose stoolsSNOMED CT: 499499114 ICD-10: R19.5 ICD-9: 787.704/5ActiveBody mass index [BMI] 60.0-69.9, adultSNOMED CT: 167229067 ICD-10: Z68.44 ICD-9: V85.44035ActiveMixed incontinenceSNOMED CT: 92030579 ICD-10: N39.46 ICD-9: 788.3303/5ActiveDiabetic neuropathy associated with type 2 diabetes mellitusICD-10: E11.40 ICD-9: 250.6002/5ActiveHemorrhoidsICD-10: K64.9 ICD-9: 455.602/5ActivePVD (peripheral vascular disease)ICD-10: I73.9 ICD-9: 443.9025ActiveCandidal intertrigoICD-10: B37.2 ICD-9: 112.301/5ActiveHyperlipidemia associated with type 2 diabetes mellitusICD-10: E11.69 ICD-9: 250.80015ActiveHypertensive heart disease without heart failure ICD-10: I11.9 ICD-9: 402.9005ActiveAdvance care planningICD-10: Z71.89 ICD-9: V65.4912ctiveLow back painICD-10: M54.50 ICD-9: 724.210ctiveParaparesis of both lower limbsICD-10: G82.20 ICD-9: 344.110ctivePhysical deconditioningICD-10: R53.81 ICD-9: 799.310ctiveAdvanced care planning - to document end of life hbcfpslixhtWcnqrlp74/24/2024ctiveAnnual physical examICD-10: Z00.00 ICD-9: V70.009ctiveHistory of anemia due to CKDICD-10: N18.9 ICD-9: 585.909/ctiveHx of deep venous thrombosisICD-10: Z86.718 ICD-9: V12.5109ctiveLearning disabilityICD-10: F81.9 ICD-9: 315.209ctiveReducible umbilical herniaICD-10: K42.9 ICD-9: 553.109/ctiveSeizure disorderICD-10: G40.909 ICD-9: 345.9009/4ActiveVitamin D deficiencyICD-10: E55.9 ICD-9: 268.909/4ActiveCallus of heelICD-10: L84 ICD-9: 41508/esolvedGout due to renal impairmentICD-10: M10.30 ICD-9: 274.1005esolvedHyperhidrosis of palmsICD-10: L74.512 ICD-9: 705.2105esolvedHyperlipidemia, unspecifiedICD-10: E78.5 ICD-9: 272.405esolvedOther care home (current) drug therapyICD-10: Z79.899 ICD-9: V58.69010/12/2023esolvedPain of right heelICD-10: M79.671 ICD-9: 729.505esolvedStage 2 chronic kidney diseaseICD-10: N18.2 ICD-9: 585.205esolvedTinea pedis of both feetICD-10: B35.3 ICD-9: 110.405esolvedCellulitisICD-10: L03.90 ICD-9: 682.904esolvedDandruff in adultICD-10: L21.0 ICD-9: 690.1804esolvedEncounter for other specified special examinationsICD-10: Z01.89 ICD-9: V72.8504esolvedEncounter for screening for nutritional disorder ICD-10: Z13.21 ICD-9: V77.9904esolvedImpacted cerumen, left earICD-10: H61.22 ICD-9: 380.404esolvedShortness of breathICD-10: R06.02 ICD-9: 786.0504/esolvedSkin tagICD-10: L91.8 ICD-9: 701.904esolvedCoronary artery disease involving [place] coronary artery of [place] heart, angina presence unspecifiedICD-10: I25.10 ICD-9: 414.0102/4ActiveInappropriate sexual behaviorICD-10: Z72.89 ICD-9: 312.8910/ctivePre-op evaluationICD-10: Z01.818 ICD-9: V72.8403/ctiveSecondary hypertensionICD-10: I15.9 ICD-9: 405.9903/ctiveDepressionICD-10: F32.9 ICD-9: 24023/esolvedDVT (deep venous thrombosis)ICD-10: I82.409 ICD-9: 453.4009esolvedEncounter for immunizationICD-10: Z23 ICD-9: V03.8909esolvedLong term (current) use of insulinICD-10: Z79.4 02/10/2022esolvedMuscular painICD-10: M79.10 ICD-9: 729.1092ResolvedHypertension associated with diabetesICD-10: [...] to other viral communicable diseasesICD-10: Z20.828 ICD-9: V01.7902/5569IyrmmudfZjgdtxayZdrnknh07/28/2020ActiveDiabetes mellitus Type 2Ckgvwoc13/28/2020ActiveAnemia in chronic kidney diseaseICD-10: D63.1 02/12/2020ResolvedHyperlipidemia, unspecifiedICD-10: E78.Resolved Medications Medication Codes Instructions Start Date Stop Date Status Fill Instructions hydrocodone 5 mg-acetaminophen 325 mg tablet RxNorm: 756607 Take 1 Tablet(s) Oral Q4H every four hours as needed for pain PRN for severe acute dental pain 10/21/19 25 025 Inactive penicillin V potassium 500 mg tablet RxNorm: 506032 Take 1 Tablet(s) Oral QID Take until dental appointment per ER recommendation 10/21/19 25 025 Inactive hydrocodone 5 mg-acetaminophen 325 mg tablet RxNorm: 457047 Take 1 Tablet(s) Oral Q4H every four hours as needed for pain PRN for severe acute dental pain 10/21/19 25 025 Inactive penicillin V potassium 500 mg tablet RxNorm: 055548 Take 1 Tablet(s) Oral QID Take until dental appointment per ER recommendation 10/21/19 25 025 Inactive potassium chloride ER 20 mEq tablet,extended release RxNorm: 027601 Take 2 Tablet(s) Oral TID (dx: hypokalemia) 09/14/19 25 026 Active potassium chloride ER 20 mEq tablet,extended release RxNorm: 184617 Take 2 Tablet(s) Oral TID (dx: hypokalemia) 09/14/19 25 025 Inactive loperamide 2 mg tablet RxNorm: 962085 Take 2 Tablet(s) Oral UD as directed [...] Date Active senna 8.6 mg tablet RxNorm: 938137 Take 1 Tablet(s) Oral QD as needed and 1 tab BID prn 09/06/19 No Stop Date Active cyclobenzaprine 10 mg tablet RxNorm: 129023 Take 1 Tablet(s) Oral QHS every night at bedtime as needed 09/06/19 No Stop Date Active loperamide 2 mg tablet RxNorm: 297900 Take 2 Tablet(s) Oral UD as directed as needed 2 tabs after first loose stool then 1 tab after each subsequent stool PRN Do not exceed 4 doses in 24 hours. Do not administer until after 3 loose stools. 09/06/19 026 Active pioglitazone 15 mg tablet RxNorm: 872342 Take 1 Tablet(s) Oral QD 09/06/19 No Stop Date Active loperamide 2 mg tablet RxNorm: 521970 Take 2 Tablet(s) Oral UD as directed as needed 2 tabs after first loose stool then 1 tab after each subsequent stool PRN Do not exceed 4 doses in 24 hours. Do not administer until after 3 loose stools. 09/06/19 025 Inactive pregabalin 100 mg capsule RxNorm: 488142 1 CAPSULE BY MOUTH EVERY MORNING (DX: NEUROPATHY) 08/23/19 025 Active FACILITY IS REQUESTING REFILL. PRIOR RX HAS BEEN EXHAUSTED. THANK YOU. pregabalin 150 mg capsule RxNorm: 685723 1 CAPSULE BY MOUTH AT BEDTIME (DX: NEUROPATHY) 08/21/19 25 025 Active FACILITY IS REQUESTING A REFILL OF THIS MEDICATION, THANK YOU! senna 8.6 mg tablet RxNorm: 602319 Take 1 Tablet(s) Oral QD as needed for constipation on day 2 of no bowel movement 08/09/19 025 Inactive Miralax 17 gram/dose oral powder RxNorm: 760431 Administer 17 Gram(s) Oral QD as needed for constipation on day 3 of no bowel movement 08/09/19 25 025 Inactive senna 8.6 mg tablet RxNorm: 711076 Take 1 Tablet(s) Oral QD as needed for constipation on day 2 of no bowel movement 08/09/19 25 025 Inactive Miralax 17 gram/dose oral powder RxNorm: 846145 Administer 17 Gram(s) Oral QD as needed for constipation on day 3 of no bowel movement 08/09/19 25 025 Inactive pregabalin 100 mg capsule RxNorm: 142498 Take 1 Capsule(s) Oral QAM every morning [...] (Concentrated) Insulin 500 unit/mL subcutaneous soln RxNorm: 102339 Inject 100 Unit(s) Subcutaneous AC before meals Three times daily before meals. 07/24/19 25 025 Inactive ammonium lactate 12 % topical cream RxNorm: 869155 Apply 1 Application Topical BID 07/20/19 25 No Stop Date Active ezetimibe 10 mg tablet RxNorm: 856269 Take 1 Tablet(s) Oral QD 07/18/19 25 No Stop Date Active senna 8.6 mg tablet RxNorm: 613085 Take 1 Tablet(s) Oral QD 07/18/19 25 025 Inactive metoprolol succinate ER 200 mg tablet,extended release 24 hr RxNorm: 632342 Take 1 Tablet(s) Oral QD 06/19/19 25 No Stop Date Active pantoprazole 40 mg tablet,delayed release RxNorm: 416629 Take 1 Tablet(s) Oral QAM every morning 06/19/19 25 No Stop Date Active hydralazine 50 mg tablet RxNorm: 620131 Take 1 Tablet(s) Oral QID 06/19/19 25 No Stop Date Active carbamazepine 200 mg tablet RxNorm: 995637 Take 1 Tablet(s) Oral BID 06/19/19 25 No Stop Date Active amlodipine 10 mg tablet RxNorm: 312473 Take 1 Tablet(s) Oral QD 06/19/19 25 No Stop Date Active Eliquis 5 mg tablet RxNorm: 2959228 Take 1 Tablet(s) Oral BID 06/19/19 25 No Stop Date Active pen needle, diabetic 30 gauge x 3/16 RxNorm: Use 1 6 times per day w/insulin 06/14/19 25 026 Active pen needle, diabetic 30 gauge x 3/16 RxNorm: Use 1 needle 6 times per day w/insulin 06/14/19 25 025 Inactive nystatin 100,000 unit/gram topical powder RxNorm: 938824 Apply 1 Application Topical BID as needed abdominal/breast/ groin folds 05/24/19 25 026 Active pregabalin 100 mg capsule RxNorm: 778170 Take 1 Capsule(s) Oral QAM every morning 05/22/19 025 Inactive nystatin 100,000 unit/gram topical powder RxNorm: 153671 Apply 1 Application Topical BID as needed abdominal/breast/ groin folds 04/11/20 24 024 Inactive chlorthalidone 25 mg tablet RxNorm: 531416 Take 1 Tablet(s) Oral QAM every morning 04/06/20 No Stop Date Active pregabalin 150 mg capsule RxNorm: 966748 Take 1 Capsule(s) Oral QHS every night at bedtime 03/31/20 024 Inactive Vascepa 1 gram capsule RxNorm: 2532824 Take 2 Capsule(s) Oral BID 03/30/20 24 025 Active rosuvastatin 40 mg tablet RxNorm: 848369 1 TAB ORALLY EVERY EVENING (DX:CORONARY ARTERY DISEASE) 03/28/20 24 No Stop Date Active venlafaxine ER 75 mg capsule,extended release 24 hr RxNorm: 783613 3 CAPS (225MG) ORALLY DAILY (DX: MOOD DISORDER) 03/28/20 No Stop Date Active pregabalin 100 mg capsule RxNorm: 129929 Take 1 Capsule(s) Oral QAM every morning 03/20/20 24 024 Inactive cholecalciferol (vitamin D3) 1,250 mcg (50,000 unit) capsule RxNorm: 448329 Take 1 Capsule(s) Oral QW once a [...] Insulin 100 unit/mL (3 mL) subcutaneous RxNorm: 1465973 Inject 40 Unit(s) Subcutaneous BID 03/07/20 025 Inactive Please dispense one month supply. Humulin R U-500 (Concentrated) Insulin 500 unit/mL subcutaneous soln RxNorm: 253812 Inject 100 Unit(s) Subcutaneous AC before meals [...] PRN) to be use with new Accu [place] meter 03/04/20 Inactive ok to substitute with any covered alternative test strip FreeStyle Chema 2 Sensor kit RxNorm: Use UD as directed 03/02/20 Inactive Pen Needle 30 gauge x 5/16 RxNorm: Pen(s) Use 1 needle as directed TID 03/02/20 024 Inactive nystatin 100,000 unit/gram topical powder RxNorm: 172162 Apply 1 Application Topical BID as needed abdominal/breast/ groin folds 03/02/20 Inactive FreeStyle Chema 2 Sensor [...] (Concentrated) Insulin 500 unit/mL subcutaneous soln RxNorm: 925634 Inject 100 Unit(s) Subcutaneous TID 02/17/20 24 024 Inactive Humulin R U-500 (Concentrated) Insulin 500 unit/mL subcutaneous soln RxNorm: 942797 Inject 100 Unit(s) Subcutaneous TID 02/10/20 24 024 Inactive Basaglar KwikPen U-100 Insulin 100 unit/mL (3 mL) subcutaneous RxNorm: 4663079 Inject 30 Unit(s) Subcutaneous BID 02/10/20 24 024 Inactive Please dispense one month supply. pregabalin 100 mg capsule RxNorm: 619313 Take 1 Capsule(s) Oral QAM every morning 02/07/20 24 024 Inactive isosorbide mononitrate ER 60 mg tablet,extended release 24 hr RxNorm: 520846 Take 1 Tablet(s) Oral QD 02/01/20 24 025 Active aripiprazole 15 mg tablet RxNorm: 587504 Take 1/2 Tablet(s) Oral QD 02/01/20 24 025 Active torsemide 20 mg tablet RxNorm: 145234 1 TAB ORALLY DAILY (DX: EDEMA) 01/27/20 No Stop Date Active potassium chloride ER 20 mEq tablet,extended release(part/cryst) RxNorm: 7371867 2 TABS (40MEQ) ORALLY TWICE DAILY (DX: HYPOKALEMIA) 01/27/20 24 025 Inactive cephalexin 500 mg capsule RxNorm: 295941 Take 1 Capsule(s) Oral QID 12/17/19 24 Inactive cephalexin 500 mg capsule RxNorm: 845205 Take 1 Capsule(s) Oral QID 12/17/19 24 Inactive acetaminophen 500 mg tablet RxNorm: 776264 (MAX APAP:4GM/24HR) Take 1 Tablet(s) Oral TID as needed for pain 12/10/19 24 Inactive torsemide 20 mg tablet RxNorm: 472744 Take 1 Tablet(s) Oral QD 10/26/19 24 [...] %-0.3 % drops in a dropperette RxNorm: 402038 Apply 1-2 Drop(s) Both eyes BID as needed 09/28/19 24 Inactive erythromycin 5 mg/gram (0.5 %) eye ointment RxNorm: 502967 Apply 1 Application Both eyes QHS every night at bedtime Instill ~1 cm ribbon into affected eye 09/28/19 24 Inactive Artificial Tears (PF) 0.1 %-0.3 % drops in a dropperette RxNorm: 025535 Apply 1-2 Drop(s) Both eyes BID as needed 09/28/19 24 Inactive erythromycin 5 mg/gram (0.5 %) eye ointment RxNorm: 163476 Apply 1 Application Both eyes QHS every night at bedtime Instill ~1 cm ribbon into affected eye 09/28/19 24 Inactive acetaminophen 500 mg tablet RxNorm: 859962 (MAX APAP:4GM/24HR) Take 1 Tablet(s) Oral TID as needed for pain 09/24/19 24 Inactive carvedilol 25 mg tablet RxNorm: 868868 Take 1 Tablet(s) Oral QD 09/08/19 24 No Stop Date Active pregabalin 100 mg capsule RxNorm: 097870 Take 1 Capsule(s) Oral QAM every morning 09/07/19 24 024 Inactive bisacodyl 10 mg rectal suppository RxNorm: 238206 Insert 1 Suppository Rectal QD as needed 07/13/19 24 No Stop Date Active ketoconazole 2 % shampoo RxNorm: 940034 Apply 1 Application Topical UD as directed 07/13/19 24 No Stop Date Active Ozempic 1 mg/dose (4 mg/3 mL) subcutaneous pen injector RxNorm: 3147108 Inject 1 Milligram(s) Subcutaneous QW once a week 07/13/19 24 No Stop Date Active Guaifenesin AC 10 mg-100 mg/5 mL oral liquid RxNorm: 862162 Take 10 Milliliter(s) Oral Q4H every four hours as needed 07/13/19 24 No Stop Date Active hydrocortisone 2.5 % topical cream RxNorm: 224753 Apply 1 Application Topical BID as needed 07/13/19 24 No Stop Date Active rosuvastatin 40 mg tablet RxNorm: 395370 Take 1 Tablet(s) Oral QPM every evening 07/13/19 24 024 Inactive ezetimibe 10 mg tablet RxNorm: 590295 Take 1 Tablet(s) Oral QD 07/13/19 24 025 Inactive polyethylene glycol 3350 17 gram/dose oral powder RxNorm: 481277 Take 17 Gram(s) Oral BID as needed mix in 4-8ox water 07/13/19 24 025 Inactive aripiprazole 15 mg tablet RxNorm: 976172 Take 1/2 Tablet(s) Oral QD 07/13/19 24 024 Inactive isosorbide mononitrate ER 60 mg tablet,extended release 24 hr RxNorm: 448492 Take 1 Tablet(s) Oral QD 07/13/19 24 024 Inactive ammonium lactate 12 % topical cream RxNorm: 104711 Apply 1 Application Topical BID 07/13/19 24 025 Inactive rosuvastatin 20 mg sprinkle capsule RxNorm: 2106893 Take 1 Capsule(s) Oral QD 07/13/19 24 025 Inactive Vascepa 1 gram capsule RxNorm: 6978906 Take 2 Capsule(s) Oral BID 07/13/19 24 024 Inactive venlafaxine ER 75 mg capsule,extended release 24 hr RxNorm: 048044 Take 3 Capsule(s) Oral QD 07/13/19 24 024 Inactive Basaglar KwikPen U-100 Insulin 100 unit/mL (3 mL) subcutaneous RxNorm: 2570700 Inject 30U SubQ twice daily 07/07/19 24 024 Inactive Please dispense one month supply. Basaglar KwikPen U-100 Insulin 100 unit/mL (3 mL) subcutaneous RxNorm: 9983503 Inject 30U SubQ twice daily 07/07/19 24 024 Inactive Please dispense one month supply. pregabalin 150 mg capsule RxNorm: 711173 Take 1 Capsule(s) Oral QHS every night at bedtime 07/05/19 24 024 Inactive pregabalin 150 mg capsule RxNorm: 400323 Take 1 Capsule(s) Oral QHS every night at bedtime 07/05/19 24 024 Inactive polyethylene glycol 3350 17 gram/dose oral powder RxNorm: 000375 Take 1 Packet Oral QD as needed (1 packet = 17g) mix with 4-8oz of liquid 06/15/19 24 024 Inactive bisacodyl 10 mg rectal suppository RxNorm: 450989 Insert one suppository per rectum once daily as needed for constipation 06/15/19 24 024 Inactive bisacodyl 10 mg rectal suppository RxNorm: 197887 Insert one suppository per rectum once daily as needed for constipation 06/15/19 24 024 Inactive pregabalin 100 mg capsule RxNorm: 268483 Take 1 Capsule(s) Oral QAM every morning 04/27/20 23 024 Inactive Levemir FlexPen 100 unit/mL (3 mL) solution subcutaneous insulin pen RxNorm: 403271 Inject 30 Unit(s) Subcutaneous BID 04/27/20 23 024 Inactive rosuvastatin 40 mg tablet RxNorm: 063912 Take 1 Tablet(s) Oral QPM every evening 04/16/20 23 024 Inactive D/C rosuvastatin 20mg venlafaxine ER 75 mg capsule,extended release 24 hr RxNorm: 745651 Take 3 Capsule(s) Oral QD 04/14/20 023 Inactive pregabalin 100 mg capsule RxNorm: 235245 Take 1 Capsule(s) Oral QAM every morning [...] strip clotrimazole 1 % topical cream RxNorm: 388679 Take apply topically to abdominal folds twice daily for 14 days 03/12/20 024 Inactive Ozempic 1 mg/dose (4 mg/3 mL) subcutaneous pen injector RxNorm: 5752449 Inject 1 Milligram(s) Subcutaneous QW once a week 03/11/20 23 023 Inactive rosuvastatin 20 mg tablet RxNorm: 499024 Take 1 Tablet(s) Oral QD 02/26/20 23 023 Inactive d/c pravastatin 80mg Ozempic 1 mg/dose (4 mg/3 mL) subcutaneous pen injector RxNorm: 9142855 Inject 1 Milligram(s) Subcutaneous QW once a week 02/20/20 23 023 Inactive pregabalin 150 mg capsule RxNorm: 989393 Take 1 Capsule(s) Oral HS at bed time 02/19/20 23 023 Inactive pregabalin 100 mg capsule RxNorm: 825406 Take 1 Capsule(s) Oral QAM every morning 02/18/20 23 023 Inactive venlafaxine ER 75 mg capsule,extended release 24 hr RxNorm: 754417 Take 3 Capsule(s) Oral QD 02/04/20 23 023 Inactive FreeStyle Chema 2 Sensor kit RxNorm: use as directed 02/04/20 23 023 Inactive FreeStyle Chema 2 Sensor kit RxNorm: use as directed 02/04/20 23 024 Inactive fluconazole 150 mg tablet RxNorm: 754129 Take 1 Tablet(s) Oral on day 3 and on day 6 02/03/20 23 024 Inactive venlafaxine ER 150 mg capsule,extended release 24 hr RxNorm: 264794 Take 1 Capsule(s) Oral QD 02/03/20 23 023 Inactive chlorthalidone 25 mg tablet RxNorm: 192046 Take 1 Tablet(s) Oral QAM every morning 02/03/20 23 024 Inactive acetaminophen 500 mg tablet RxNorm: 181020 1 TABLET ORALLY 3 TIMES DAILY (MAX APAP:4GM/24HR) 12/15/19 23 023 Inactive potassium chloride ER 20 mEq tablet,extended release RxNorm: 608014 Take 1 Tablet(s) Oral BID 12/09/19 23 024 Inactive d/c 20mEq once daily (sent from hospital) clotrimazole 1 % topical cream RxNorm: 024126 apply 1g topically to top of feet and in between toes BID 12/09/19 23 025 Inactive nystatin 100,000 unit/gram topical powder RxNorm: 548384 APPLY TO AFFECTED AREAS TOPICALLY 2 TIMES DAILY 11/21/19 23 023 Inactive Nystop 100,000 unit/gram topical powder RxNorm: 606994 Apply to abd folds, under breasts and L side of groin Topical BID x 14 days, then BID PRN 11/20/19 23 023 Inactive dx: yeast dermatitis [place] Ultra Strength 4 %-30 %-10 % topical cream RxNorm: 428560 Apply 1 Gram(s) Topical QID PRN to feet and legs for neuropathic pain 11/11/19 23 024 Inactive clotrimazole 1 % topical cream RxNorm: 171928 Apply 1/2 Gram(s) Topical BID Apply to affected areas of groin, periarea, and abdominal topically 2 times daily 11/10/19 23 023 Inactive hydrocortisone 2.5 % topical cream RxNorm: 323793 Apply 1/2 Gram(s) Topical BID as needed 11/10/19 024 Inactive Levemir FlexPen 100 unit/mL (3 mL) solution subcutaneous insulin pen RxNorm: 177674 Inject 30 Unit(s) Subcutaneous BID 10/07/19 023 Inactive Humulin R U-500 (Concentrated) Insulin 500 unit/mL subcutaneous soln RxNorm: 136982 Inject 100 Unit(s) Subcutaneous TID 10/07/19 024 Inactive Ozempic 0.25 mg or 0.5 mg (2 mg/3 mL) subcutaneous pen injector RxNorm: 4113092 Inject 1/2 Milligram(s) Subcutaneous QW once a week 10/07/19 024 Inactive aripiprazole 15 mg tablet RxNorm: 858990 1/2 TAB (7.5MG) ORALLY DAILY (DX:MAJOR DEPRESSIVE DISORDER) 09/23/19 23 023 Inactive Accu-Chek Guide test strips RxNorm: Use 1 Test Strip QID 09/15/19 23 023 Inactive ok to substitute with any covered alternative test strip Lancets,Thin 28 gauge RxNorm: Use 1 as directed QID 09/15/19 23 023 Inactive torsemide 20 mg tablet RxNorm: 128174 Take 1 Tablet(s) Oral BID 09/09/19 23 024 Inactive d/c once daily dosing carvedilol 25 mg tablet RxNorm: 548169 Take 1 Tablet(s) Oral QD 08/25/19 024 Inactive pregabalin 150 mg capsule RxNorm: 583565 1 Capsule(s) Oral HS at bed time 08/18/19 023 Inactive pregabalin 100 mg capsule RxNorm: 109447 1 Capsule(s) Oral QAM every morning 08/18/19 23 023 Inactive carvedilol 25 mg tablet RxNorm: 368171 1 Tablet(s) Oral QD 07/28/19 023 Inactive lisinopril 20 mg tablet RxNorm: 732598 Give 1 Tablet(s) Oral QD 07/28/19 23 023 Inactive Lyrica 150 mg capsule RxNorm: 990684 Take 1 Capsule(s) Oral QHS every night at bedtime 07/19/19 023 Inactive d/c 100mg dose Diflucan 150 mg tablet RxNorm: 805148 Take 1 Tablet(s) Oral QD repeat on day 3 and 6 07/19/19 23 023 Inactive pregabalin 100 mg capsule RxNorm: 050378 Take 1 Capsule(s) Oral QAM every morning 07/19/19 023 Inactive gatifloxacin 0.5 % eye drops RxNorm: 247264 Instill 1 Drop(s) as directed TID Instill 1 drop in to affected eye(s) starting 1 day prior to surgery and continue until gone (do not exceed 4 weeks). 07/13/19 023 Inactive carvedilol 25 mg tablet RxNorm: 992432 2 Tablet(s) Oral BID 07/13/19 023 Inactive Humulin R Regular U-100 Insulin 100 unit/mL injection solution RxNorm: 996807 85 Unit(s) Injection TID 07/13/19 023 Inactive ketorolac 0.5 % eye drops RxNorm: 295149 Instill 1 Drop(s) as directed QID Instill 1 drop into affected eye(s) 4 times daily starting 1 day prior to surgery and continue until gone (do not exceed 4 weeks). 07/13/19 023 Inactive Diflucan 150 mg tablet RxNorm: 230746 Take 1 Tablet(s) Oral QD repeat on day 3 and 6 06/30/19 23 023 Inactive Accu-Chek Guide test strips RxNorm: Use 1 Test Strip QID Use 1 test strip to monitor blood glucose 4 times daily and as needed. Dx:E11.42. 06/23/19 23 023 Inactive ok to substitute with any covered alternative test strip dextromethorphan-gu aifenesin 10 mg-100 mg/5 mL oral liquid RxNorm: 628532 Take 10 Milliliter(s) Oral every 4 hours as needed for cough 06/19/19 023 Inactive dextromethorphan-gu aifenesin 10 mg-100 mg/5 mL oral liquid RxNorm: 614474 Take 10 Milliliter(s) Oral every 4 hours as needed for cough 06/19/19 023 Inactive Lyrica 150 mg capsule RxNorm: 902175 Take 1 Capsule(s) Oral QHS every night at bedtime 06/18/19 023 Inactive d/c 100mg dose aripiprazole 15 mg tablet RxNorm: 460287 /2 TAB (7.5MG) ORALLY DAILY (DX:MAJOR DEPRESSIVE DISORDER) 06/05/19 023 Inactive pregabalin 100 mg capsule RxNorm: 731810 1 Capsule(s) Oral QAM every morning 06/02/19 023 Inactive Banophen 50 mg capsule RxNorm: 5489840 Take 1 Capsule(s) Oral Q6H every 6 hours as needed 05/19/19 23 No Stop Date Active Novolog Flexpen U-100 Insulin aspart 100 unit/mL (3 mL) subcutaneous RxNorm: 3735793 Inject 10 Unit(s) Subcutaneous QHS every night at bedtime with nighttime snack 04/08/20 022 Inactive Novolog Flexpen U-100 Insulin aspart 100 unit/mL (3 mL) subcutaneous RxNorm: 1895024 Inject 42 Unit(s) Subcutaneous TID in addition to sliding scale 04/08/20 022 Inactive d/c 36u albuterol sulfate HFA 90 mcg/actuation aerosol inhaler RxNorm: 4065937 Take 2 Puff(s) Inhalation Q4H every four hours as needed as needed for SOB, cough, or wheezing 04/07/20 030 Active Banophen 50 mg capsule RxNorm: 8326574 Take 1 Capsule(s) Oral Q6H every 6 hours as needed 04/06/20 023 Inactive diphenhydramine 50 mg tablet RxNorm: 4976505 Take 1 Tablet(s) Oral Q6H every 6 hours as needed 04/06/20 022 Inactive diphenhydramine 50 mg tablet RxNorm: 1338321 1 Tablet(s) Oral Q6H every 6 hours as needed 04/06/20 Inactive Abilify 15 mg tablet RxNorm: 707024 1/2 Tablet(s) Oral QD 03/10/20 023 Inactive Shingrix (PF) 50 mcg/0.5 mL intramuscular suspension, kit RxNorm: 0406498 Administer 1/2 Milliliter(s) Intramuscular QD one time shingrix step 2 ( step 1 given 11/04/21) WITH needle - Nursing please administer upon arrival and once administered post a bridge message with date of administration, antique finisher, expiration date, and lot# so we can update [facility] 02/18/20 22 022 Inactive dispense with needle Shingrix (PF) 50 mcg/0.5 mL intramuscular suspension, kit RxNorm: 8847777 Administer 1/2 Milliliter(s) Intramuscular QD one time shingrix step 2 ( step 1 given 11/04/21) WITH needle - Nursing please administer upon arrival and once administered post a bridge message with date of administration, antique finisher, expiration date, and lot# so we can update [facility] 02/18/20 22 022 Inactive dispense with needle Lyrica 100 mg capsule RxNorm: 707878 Take 1 Capsule(s) Oral QAM every morning 01/08/20 22 022 Inactive d/c 50mg dose acetaminophen 500 mg tablet RxNorm: 086601 Take 1 Tablet(s) Oral TID 01/08/20 22 022 Inactive d/c PRN order Lyrica 150 mg capsule RxNorm: 915905 Take 1 Capsule(s) Oral QHS every night at bedtime 01/08/20 22 023 Inactive d/c 100mg dose polyethylene glycol 3350 17 gram/dose oral powder RxNorm: 063808 Take 17=1 capful Gram(s) Oral QD mix with 4-8oz of liquid 01/08/20 22 025 Inactive take this in addition to BID prn order Abilify 5 mg tablet RxNorm: 923172 Take 1 Tablet(s) Oral QD take 1 tab po QD #30 refill 5 dx: MDD 12/12/19 22 022 Inactive Abilify 5 mg tablet RxNorm: 693261 Take 1 Tablet(s) Oral QD take 1 tab po QD #30 refill 5 dx: MDD 12/12/19 22 022 Inactive Novolog Flexpen U-100 Insulin aspart 100 unit/mL (3 mL) subcutaneous RxNorm: 8413800 Inject 42 Unit(s) Subcutaneous TID in addition to sliding scale 12/10/19 22 Inactive d/c 36u chlorthalidone 25 mg tablet RxNorm: 143714 Take 1 Tablet(s) Oral QAM every morning 12/10/19 22 023 Inactive pregabalin 50 mg capsule RxNorm: 570420 Take 1 Capsule(s) Oral QAM every morning 11/12/19 22 Inactive tetanus-diphtheria toxoids-Td 2 Lf unit-2 Lf unit/0.5 mL IM suspension RxNorm: 139 Take 0.5 Miscellaneous Intramuscular 11/12/19 22 022 Inactive need tdap - nursing to administer upon arrival pregabalin 50 mg capsule RxNorm: 997849 Take 1 Capsule(s) Oral QAM every morning 10/16/19 22 022 Inactive pregabalin 50 mg capsule RxNorm: 967694 Take 1 Capsule(s) Oral QAM every morning 10/16/19 22 022 Inactive pregabalin 50 mg capsule RxNorm: 482482 1 Capsule(s) Oral QAM every morning 10/15/19 22 022 Inactive Shingrix (PF) 50 mcg/0.5 mL intramuscular suspension, kit RxNorm: 0639359 Administer 1/2 Milliliter(s) Intramuscular one time Nursing please administer upon arrival and once administered post a bridge message with date of administration, antique finisher, expiration date, and lot# so we can update [facility]. 10/09/19 22 022 Inactive shingrix step 1 Shingrix (PF) 50 mcg/0.5 mL intramuscular suspension, kit RxNorm: 6924433 Administer 1/2 Milliliter(s) Intramuscular one time Nursing please administer upon arrival and once administered post a bridge message with date of administration, antique finisher, expiration date, and lot# so we can [...] aspart 100 unit/mL (3 mL) subcutaneous RxNorm: 5425794 Inject 10 Unit(s) Subcutaneous QHS every night at bedtime with nighttime snack 10/08/19 22 Inactive Shingrix (PF) 50 mcg/0.5 mL intramuscular suspension, kit RxNorm: 7993895 ADMINISTER 2-DOSE SERIES PER CDC GUIDELINES 10/08/19 22 022 Active Shingrix (PF) 50 mcg/0.5 mL intramuscular suspension, kit RxNorm: 2257640 ADMINISTER 2-DOSE SERIES PER CDC GUIDELINES 10/08/19 22 022 Inactive Novolog Flexpen U-100 Insulin aspart 100 unit/mL (3 mL) subcutaneous RxNorm: 5606091 Inject 36 Unit(s) Subcutaneous TID in addition to sliding scale 10/08/19 22 Inactive cholecalciferol (vitamin D3) 1,250 mcg (50,000 unit) capsule RxNorm: 095833 Take 1 Capsule(s) Oral QW once a week 10/08/19 22 Inactive Novofine Autocover 30 gauge x 1/3 needle RxNorm: Use 1 Miscellaneous UD as directed Use 1 needle as directed to administer insulin 5 times a day Dx:E11.42. 10/03/19 22 Inactive ok to substitute with any covered alternative pen needle benzoyl peroxide 10 % topical cleanser RxNorm: 310886 Apply 1 Application Topical QD apply to face, wash rinse and dry once daily (may change to QOD if drying) 08/19/19 22 022 Inactive (%covered by insurance) #60ml refill 11 dx: acne benzoyl peroxide 10 % topical cleanser RxNorm: 142144 Apply 1 Application Topical QD apply to face, wash rinse and dry once daily (may change to QOD if drying) 08/19/19 22 022 Inactive (%covered by insurance) #60ml refill 11 dx: acne benzoyl peroxide 10 % topical cleanser RxNorm: 855478 Apply 1 Application Topical QD apply to face, wash rinse and dry once daily (may change to QOD if drying) 08/19/19 22 022 Inactive (%covered by insurance) #60ml refill 11 dx: acne Lyrica 50 mg capsule RxNorm: 005535 Take 1 Capsule(s) Oral QAM every morning Take 1 capsule by mouth once daily 08/19/19 022 Inactive benzoyl peroxide 10 % topical cleanser RxNorm: 216717 Apply 1 Application Topical QD apply to face, wash rinse and dry once daily (may change to QOD if drying) 08/19/19 22 022 Inactive (%covered by insurance) #60ml refill 11 dx: acne Lyrica 100 mg capsule RxNorm: 986047 Take 1 Capsule(s) Oral QHS every night at bedtime Take 1 capsule by mouth once daily at bedtime 08/19/19 22 022 Inactive Lyrica 100 mg capsule RxNorm: 858392 Take 1 Capsule(s) Oral QHS every night at bedtime Take 1 capsule by mouth once daily at bedtime 08/16/19 022 Inactive Lyrica 50 mg capsule RxNorm: 075647 Take 1 Capsule(s) Oral QAM every morning Take 1 capsule by mouth once daily 08/16/19 Inactive Levemir FlexTouch U-100 Insulin 100 unit/mL (3 mL) subcutaneous pen RxNorm: 255136 Inject 86 Unit(s) Subcutaneous BID 08/05/19 22 022 Inactive d/c 83units BID Lyrica 100 mg capsule RxNorm: 176836 Take 1 Capsule(s) Oral QHS every night at bedtime Take 1 capsule by mouth once daily at bedtime 07/14/19 22 Inactive Lyrica 50 mg capsule RxNorm: 165398 Take 1 Capsule(s) Oral QAM every morning Take 1 capsule by mouth once daily 07/14/19 22 Inactive Levemir FlexTouch U-100 Insulin 100 unit/mL (3 mL) subcutaneous pen RxNorm: 275997 Inject 83 Unit(s) Subcutaneous BID 07/08/19 22 [...] test strip hydralazine 50 mg tablet RxNorm: 561557 Take 1 Tablet(s) Oral QID 05/05/20 022 Inactive venlafaxine ER 225 mg tablet,extended release 24 hr RxNorm: 430430 Take 1 Tablet(s) Oral QD 05/05/20 021 Inactive venlafaxine ER 225 mg tablet,extended release 24 hr RxNorm: 544754 Take 1 Tablet(s) Oral QD 05/05/20 022 Inactive isosorbide mononitrate ER 30 mg tablet,extended release 24 hr RxNorm: 981947 Take 1 Tablet(s) Oral QD 05/05/20 024 Inactive hydralazine 50 mg tablet RxNorm: 251919 Take 1 Tablet(s) Oral QID 05/05/20 021 Inactive aspirin 81 mg tablet,delayed release RxNorm: 847283 Take 1 Tablet(s) Oral QD 03/31/20 022 Inactive Vitamin D2 1,250 mcg (50,000 unit) capsule RxNorm: 3173749 Take 1 Capsule(s) Oral QW once a week x 12 weeks 03/31/20 022 Inactive Vitamin D2 1,250 mcg (50,000 unit) capsule RxNorm: 5698963 Take 1 Capsule(s) Oral QW once a week 03/31/20 021 Inactive Zetia 10 mg tablet RxNorm: 929369 Take 1 Tablet(s) Oral QD 03/31/20 024 Inactive Zetia 10 mg tablet RxNorm: 819709 Take 1 Tablet(s) Oral QD 03/31/20 021 Inactive hydralazine 25 mg tablet RxNorm: 536460 Take 1 Tablet(s) Oral QID 03/31/20 021 Inactive hydralazine 25 mg tablet RxNorm: 729523 Take 1 Tablet(s) Oral QID 03/31/20 021 Inactive hydralazine 10 mg tablet RxNorm: 457166 Take 1 Tablet(s) Oral QID 03/03/20 021 Inactive cephalexin 500 mg tablet RxNorm: 213131 Take 1 Tablet(s) Oral QID 02/27/20 021 Inactive cephalexin 500 mg tablet RxNorm: 418759 Take 1 Tablet(s) Oral QID 02/27/20 021 Inactive lisinopril 40 mg tablet RxNorm: 837407 Take 1 Tablet(s) Oral QD 02/11/20 023 Inactive Eliquis 5 mg tablet RxNorm: 6048865 Take 1 Tablet(s) Oral BID 01/05/20 21 025 Inactive Eliquis 5 mg tablet RxNorm: 2160557 Take 2 Tablet(s) Oral QD 01/01/20 21 021 Inactive Lyrica 50 mg capsule RxNorm: 397922 Take 1 Capsule(s) Oral QAM every morning 12/24/19 021 Inactive Lyrica 100 mg capsule RxNorm: 911403 Take 1 Capsule(s) Oral QHS every night at bedtime 12/24/19 021 Inactive clotrimazole 1 % topical cream RxNorm: 495227 Apply to right foot and toes Topical BID 12/04/19 21 023 Inactive metoprolol succinate ER 200 mg tablet,extended release 24 hr RxNorm: 696011 Take 1 Tablet(s) Oral QD 12/04/19 023 Inactive ciprofloxacin 500 mg tablet RxNorm: 053119 Take 1 Tablet(s) Oral QD 11/30/19 21 021 Inactive DX ofloxacin otic drops Accu-Chek Guide test strips RxNorm: USE 1 TO CHECK GLUCOSE 4 TIMES DAILY AND NEEDED 11/15/19 21 023 Inactive Blood Glucose Test strips RxNorm: Use 1 Test Strip QID at PRN 11/05/19 21 023 Inactive E11.42 lisinopril 30 mg tablet RxNorm: 577154 Take 1 Tablet(s) Oral QD 10/30/19 21 021 Inactive lisinopril 20 mg tablet RxNorm: 376851 Take 1 Tablet(s) Oral QD 10/23/19 021 Inactive lisinopril 20 mg tablet RxNorm: 499991 Take 1 Tablet(s) Oral QD 10/23/19 21 021 Inactive lisinopril 10 mg tablet RxNorm: 481392 Take 1 Tablet(s) Oral QD 10/02/19 21 021 Inactive icosapent ethyl 1 gram capsule RxNorm: 2721378 Take 2 Capsule(s) (2 gm) Oral BID with meals 09/12/19 21 024 Inactive Okay to dispense one 2gm tab if you have that available. icosapent ethyl 1 gram capsule RxNorm: 9388333 Take 2 Capsule(s) Oral BID 09/12/19 21 021 Inactive Okay to dispense one 2gm tab if you have that available. amlodipine 10 mg tablet RxNorm: 339684 Take 1 Tablet(s) Oral QD 09/04/19 21 021 Inactive aspirin 81 mg tablet,delayed release RxNorm: 267446 Take 1 Tablet(s) Oral QD 09/04/19 21 021 Inactive Levemir FlexTouch U-100 Insulin 100 unit/mL (3 mL) subcutaneous pen RxNorm: 189220 Inject 150 Unit(s) Subcutaneous BID 09/04/19 21 022 Inactive venlafaxine ER 150 mg tablet,extended release 24 hr RxNorm: 729048 Take 1 Tablet(s) Oral QD 09/04/19 21 021 Inactive clotrimazole-betame thasone 1 %-0.05 % topical cream RxNorm: 763050 Apply to rash on red area on left abdomen/chest Topical BID 08/10/19 21 021 Inactive amlodipine 5 mg tablet RxNorm: 185884 Take 1 Tablet(s) Oral QD 07/31/19 21 021 Inactive cephalexin 500 mg tablet RxNorm: 365770 Take 1 Tablet(s) Oral BID BID - Twice Daily 07/31/19 21 021 Inactive Start 08/01/20 pantoprazole 40 mg tablet,delayed release RxNorm: 632261 Take 1 Tablet(s) Oral QAM every morning 07/08/19 21 025 Inactive clopidogrel 75 mg tablet RxNorm: 709224 Take 1 Tablet(s) Oral QD 07/08/19 21 021 Inactive Blood Glucose Test strips RxNorm: Use 1 Test Strip QID at PRN 07/08/19 21 021 Inactive E11.42 senna 8.6 mg tablet RxNorm: 310548 Take 1 Tablet(s) Oral QD 07/08/19 025 Inactive Novolog Flexpen U-100 Insulin aspart 100 unit/mL (3 mL) subcutaneous RxNorm: 7305274 Administer per sliding scale Milliliter(s) Subcutaneous TID 151-200: 10 u; 201-250: 20 u; 251-300: 30 u; 301-350: 40 u; 351-400: 50 u. 07/08/19 21 022 Inactive lisinopril 5 mg tablet RxNorm: 666551 Take 1 Tablet(s) Oral QD 07/08/19 021 Inactive Novolog Flexpen U-100 Insulin aspart 100 unit/mL (3 mL) subcutaneous RxNorm: 8364744 Inject 85 Unit(s) Subcutaneous TID 07/08/19 022 Inactive pravastatin 80 mg tablet RxNorm: 149234 Take 1 Tablet(s) Oral QHS every night at bedtime 07/08/19 023 Inactive clotrimazole 1 % topical cream RxNorm: 956221 Apply to bilateral groin areas Topical BID 07/08/19 022 Inactive metoprolol succinate ER 200 mg tablet,extended release 24 hr RxNorm: 456838 Take 1 Tablet(s) Oral QD 07/08/19 21 021 Inactive Vitamin D3 25 mcg (1,000 unit) tablet RxNorm: 409665 Take 1 Tablet(s) Oral QD 07/08/19 21 021 Inactive isosorbide dinitrate 30 mg tablet RxNorm: 919506 Take 1 Tablet(s) Oral QD 07/08/19 21 021 Inactive carbamazepine 200 mg tablet RxNorm: 242465 Take 1 Tablet(s) Oral BID 07/08/19 21 025 Inactive Levemir FlexTouch U-100 Insulin 100 unit/mL (3 mL) subcutaneous pen RxNorm: 136885 Inject 140 Unit(s) Subcutaneous BID 07/08/19 21 021 Inactive torsemide 20 mg tablet RxNorm: 217175 Take 1 Tablet(s) Oral QD 07/08/19 21 023 Inactive venlafaxine 75 mg tablet RxNorm: 071955 Take 1 Tablet(s) Oral QD 07/08/19 021 Inactive acetaminophen 500 mg tablet RxNorm: 064913 Take 1 Tablet(s) Oral TID as needed for headache 06/18/19 21 021 Inactive acetaminophen 500 mg tablet RxNorm: 386804 Take 1 Tablet(s) Oral TID as needed for headache 06/18/19 21 021 Inactive Lyrica 100 mg capsule RxNorm: 988901 Take 1 Capsule(s) Oral QHS every night at bedtime 06/11/19 21 021 Inactive Lyrica 50 mg capsule RxNorm: 428669 Take 1 Capsule(s) Oral QAM every morning 06/10/19 021 Inactive hydrocortisone 2.5 % topical cream RxNorm: 466845 Apply to bilateral groin creases Topical BID 05/15/20 20 021 Inactive clotrimazole 1 % topical cream RxNorm: 366851 Apply to bilateral groin areas Topical BID 05/15/20 20 021 Inactive Lyrica 50 mg capsule RxNorm: 399149 Take 1 Capsule(s) Oral QAM every morning 05/14/20 20 020 Inactive Lyrica 100 mg capsule RxNorm: 178476 Take 1 Capsule(s) Oral QHS every night [...] Inactive Nystop 100,000 unit/gram topical powder RxNorm: 531935 Apply to abd folds, under breasts and L side of groin Topical BID x 14 days, then BID PRN 04/08/20 20 Inactive dx: yeast dermatitis Lyrica 100 mg capsule RxNorm: 237376 Take 1 Capsule(s) Oral QHS every night at bedtime 03/13/20 20 Inactive Lyrica 50 mg capsule RxNorm: 499387 Take 1 Capsule(s) Oral QAM every morning 03/13/20 20 Inactive ketoconazole 2 % shampoo RxNorm: 610188 Apply Topical two times a week with showers 03/11/20 20 Inactive cholecalciferol (vitamin D3) 50 mcg (2,000 unit) tablet RxNorm: 618351 Take 1 Tablet(s) Oral QD 03/11/20 20 021 Inactive Zetia 10 mg tablet RxNorm: 959388 Take 1 Tablet(s) Oral QD 03/07/20 20 021 Inactive Zetia 10 mg tablet RxNorm: 452890 Take 1 Tablet(s) Oral QD 03/07/20 20 Inactive Lyrica 50 mg capsule RxNorm: 795231 Take 1 Capsule(s) Oral QAM every morning 02/15/20 20 Inactive Lyrica 100 mg capsule RxNorm: 087571 Take 1 Capsule(s) Oral QHS every night at bedtime 02/15/20 20 Inactive Lyrica 100 mg capsule RxNorm: 135504 Take 1 Capsule(s) Oral QHS every night at bedtime 02/15/20 20 Inactive Lyrica 50 mg capsule RxNorm: 468484 Take 1 Capsule(s) Oral QAM every morning 02/15/20 20 020 Inactive venlafaxine ER 75 mg capsule,extended release 24 hr RxNorm: 925400 Take 3 Capsule(s) Oral QD 06/12/19 22 023 Inactive polyethylene glycol 3350 17 gram/dose oral powder RxNorm: 836184 Take 17=1 capful Gram(s) Oral BID as needed mix with 4-8oz of liquid 06/12/19 22 024 Inactive icosapent ethyl 1 gram capsule RxNorm: 8144407 Take 2 Capsule(s) (2 gm) Oral BID with meals 10/07/19 23 023 Inactive Okay to dispense one 2gm tab if you have that available. Levemir FlexTouch U-100 Insulin 100 unit/mL (3 mL) subcutaneous pen RxNorm: 076217 Inject 80 Unit(s) Subcutaneous BID 07/14/19 23 023 Inactive metoprolol succinate ER 200 mg tablet,extended release 24 hr RxNorm: 295339 Take 1 Tablet(s) Oral QD 08/12/19 23 025 Inactive loperamide 2 mg capsule RxNorm: 933376 Take 1 Capsule(s) Oral QID as needed 09/06/19 25 025 Inactive hydralazine 50 mg tablet RxNorm: 561493 Take 1 Tablet(s) Oral QID 08/12/19 23 025 Inactive Soft Touch Lancets RxNorm: miscellaneous 03/04/20 24 025 Inactive Novolog Flexpen U-100 Insulin aspart 100 unit/mL (3 mL) subcutaneous RxNorm: 7136305 Insert 30 Unit(s) Subcutaneous TID with meals [...] Planned Activity Notes Codes Status Date Referral: [facility] [address] [id number] [place]erralRecords requested X210/20/2024Referral: [facility]/Endocrinology WPtel[facility] [address] [facility] 3 [id number] USReferralNo Records [id number]/24/2025Referral: [facility] WPtel: [address], [address] [id number] [place]ReferralRecords [id number]/08/2023Referral: [facility] [place] WPtel: [address] [id number]/12/2022Referral: General CardiologyReferralCompleted 1Referral: General PsychologistReferralClosedReferral: General PsychiatristReferralPatient/Family [...] Sister Jyotsna involved in his care cell# [phone] Guardian: Don (tapan met in person 09/01/21), now has Lexii (same group as don)AWV 9. Lab Schedule: /September*September (CBC with diff, [...] appointment 05.26.2024 with Jessa Webster MD at [facility]. Start Pioglitazone 15 mg QD. Stop Basaglar insulin. Increase Ozempic 2 mg once wkly. Continue Humalin R U-500 100 units with meals TID. FOLLOW UP 2 MONTHS. If BG >400 add 50 units to next scheduled dose of Humalin R U 500 insulin 06/12/2024
--- OUTSIDE RECORDS SUMMARY | 2024-11-10 20:48 | XMS_ITS | CCD ---
Author Name Cecilio Durham Address [address] [place] [address] Phone Organization [facility] Phone Care Team Providers Care Grinder Set Up Operator Universal Name Role Phone Harrison Durham Primary Care Provider Leona vailable Unavailable Chronic Care Management Unavaila ble Summary Purpose DataExchange Insurance Providers Payer name Policy type / Coverage type Covered constitution party ID Effective Begin Date Effective End Date [place] Part B [id number] Unknown Unknown [place] B [id number] Unknown Unknown Family history Sister Brittany Suggs [...] on file 07/11/[address]: [id number] Never smoker 01/16 Sexually Active? Unknown No [...] [facility] 09/03/[address]: 765126650 No Alcohol Consum ption 09/02/2020 Allergies, Adverse Reactions, Alerts Substance Reaction Codes Entered Date Inactivated Date Status * NO KNOWN FOOD ALLERGIES Hpywpyn7707/13/2023 Inactive DateActiveLISINOPRILRxNorm: 9967653 Inactive DateActiveMetformin RBsNtyielp37/28/2020 Inactive DateActive* NO KNOWN ENVIRONMENTAL [id number]/27/2024 Inactive DateActive Problems Condition Codes Effective Dates Condition St atus Amputated toe of right foot ICD-10: S98. 131A ICD-9: 895.0055ActiveHypercoagulable stateICD-10: D68.59 ICD-9: 289.8105tiveHypokalemiaICD-10: E87.6 ICD-9: 276.8055ActiveLower extremity edemaICD-10: R60.0 ICD-9: 782.305/5ActiveMajor depression, recurrentICD-10: F33.9 ICD-9: 296.30055ActiveOnychogryposisICD-10: L60.2 ICD-9: 703.805ActivePulmonary noduleSNOMED CT: 764113108 ICD-10: R91.1 ICD-9: 793.11055ActiveRecurrent major depressive disorder, in partial remissionICD-10: F33.41 ICD-9: 296.35055ActiveStage 2 chronic 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ICD-10: E11.22 ICD-9: 250.40055ActiveType 2 diabetes mellitus with diabetic polyneuropathy, with long-term current use of insulinICD-10: E11.42 ICD-9: 250.60055ActivePressure ulcer of left calf, unstageableICD-10: L89.890 ICD-9: 707.0910/10/2024ResolvedConstipation by delayed colonic transitICD-10: K59.01 ICD-9: 564.01045ActiveLoose stoolsSNOMED CT: 080993644 ICD-10: R19.5 ICD-9: 787.7045ActiveBody mass index [BMI] 60.0-69.9, adultSNOMED CT: 910355982 ICD-10: Z68.44 ICD-9: V85.44035ActiveMixed incontinenceSNOMED CT: 94993281 ICD-10: N39.46 ICD-9: 788.33035ActiveDiabetic neuropathy associated with [...] planning - to document end of life [id number] physical examICD-10: Z00.00 ICD-9: V70.009ctiveHistory of anemia due to CKDICD-10: N18.9 ICD-9: 585.909/ctiveHx of deep venous thrombosisICD-10: Z86.718 ICD-9: V12.5109ctiveLearning disabilityICD-10: F81.9 ICD-9: 315.209/24/2024ActiveReducible umbilical herniaICD-10: K42.9 ICD-9: 553.109/ctiveSeizure disorderICD-10: G40.909 ICD-9: 345.9009/ctiveVitamin D deficiencyICD-10: E55.9 ICD-9: 268.909/ctiveCallus of heelICD-10: L84 ICD-9: 21890/esolvedGout due to renal impairmentICD-10: M10.30 ICD-9: 274.1005esolvedHyperhidrosis of palmsICD-10: L74.512 ICD-9: 705.21010/12/2023esolvedHyperlipidemia, unspecifiedICD-10: E78.5 ICD-9: 272.405esolvedOther termite renewal inspector (current) drug therapyICD-10: Z79.899 ICD-9: V58.6905esolvedPain of [...] tagICD-10: L91.8 ICD-9: 701.904/4ResolvedCoronary artery disease involving tejon coronary artery of tejon heart, angina presence unspecifiedICD-10: I25.10 ICD-9: 414.0102/4ActiveInappropriate sexual behaviorICD-10: Z72.89 ICD-9: 312.8910/ctivePre-op evaluationICD-10: Z01.818 ICD-9: V72.8403/ctiveSecondary hypertensionICD-10: I15.9 ICD-9: 405.9903/ctiveDepressionICD-10: F32.9 ICD-9: 94657/2ResolvedDVT (deep venous thrombosis)ICD-10: I82.409 ICD-9: 453.4009esolvedEncounter for [...] to other viral communicable diseasesICD-10: Z20.828 ICD-9: V01.7902/3212OjvixgvjNbekoarrGaazjsg70/28/2020ActiveDiabetes mellitus Type 5Atjwvdm43/28/2020ActiveAnemia in chronic kidney diseaseICD-10: D63.1 02/12/2020ResolvedHyperlipidemia, unspecifiedICD-10: E78.Resolved Medications Medication Codes Instructions Start Date Stop Date Status Fill Instructions penicillin V potassium 500 mg tablet RxNorm: 792627 Take 1 Tablet(s) Oral QID Take until dental appointment per ER recommendation 10/21/19 25 025 Inactive hydrocodone 5 mg-acetaminophen 325 mg tablet RxNorm: 625598 Take 1 Tablet(s) Oral Q4H every four hours as needed for pain PRN for severe acute dental pain 10/21/19 25 025 Inactive hydrocodone 5 mg-acetaminophen 325 mg tablet RxNorm: 013074 Take 1 Tablet(s) Oral Q4H every four hours as needed for pain PRN for severe acute dental pain 10/21/19 25 025 Inactive penicillin V potassium 500 mg tablet RxNorm: 652631 Take 1 Tablet(s) Oral QID Take until dental appointment per ER recommendation 10/21/19 25 025 Inactive potassium chloride ER 20 mEq tablet,extended release RxNorm: 980738 Take 2 Tablet(s) Oral TID (dx: hypokalemia) 09/14/19 25 026 Active potassium chloride ER 20 mEq tablet,extended release RxNorm: 903390 Take 2 Tablet(s) Oral TID (dx: hypokalemia) 09/14/19 25 025 Inactive loperamide 2 mg tablet RxNorm: 552051 Take 2 Tablet(s) Oral UD as directed [...] Date Active senna 8.6 mg tablet RxNorm: 858586 Take 1 Tablet(s) Oral QD as needed and 1 tab BID prn 09/06/19 No Stop Date Active cyclobenzaprine 10 mg tablet RxNorm: 352414 Take 1 Tablet(s) Oral QHS every night at bedtime as needed 09/06/19 No Stop Date Active loperamide 2 mg tablet RxNorm: 676728 Take 2 Tablet(s) Oral UD as directed as needed 2 tabs after first loose stool then 1 tab after each subsequent stool PRN Do not exceed 4 doses in 24 hours. Do not administer until after 3 loose stools. 09/06/19 026 Active pioglitazone 15 mg tablet RxNorm: 933981 Take 1 Tablet(s) Oral QD 09/06/19 No Stop Date Active loperamide 2 mg tablet RxNorm: 018981 Take 2 Tablet(s) Oral UD as directed as needed 2 tabs after first loose stool then 1 tab after each subsequent stool PRN Do not exceed 4 doses in 24 hours. Do not administer until after 3 loose stools. 09/06/19 25 025 Inactive pregabalin 100 mg capsule RxNorm: 492123 1 CAPSULE BY MOUTH EVERY MORNING (DX: NEUROPATHY) 08/23/19 25 025 Active FACILITY IS REQUESTING REFILL. PRIOR RX HAS BEEN EXHAUSTED. THANK YOU. pregabalin 150 mg capsule RxNorm: 407658 1 CAPSULE BY MOUTH AT BEDTIME (DX: NEUROPATHY) 08/21/19 25 025 Active FACILITY IS REQUESTING A REFILL OF THIS MEDICATION, THANK YOU! senna 8.6 mg tablet RxNorm: 044681 Take 1 Tablet(s) Oral QD as needed for constipation on day 2 of no bowel movement 08/09/19 25 025 Inactive Miralax 17 gram/dose oral powder RxNorm: 656052 Administer 17 Gram(s) Oral QD as needed for constipation on day 3 of no bowel movement 08/09/19 25 025 Inactive senna 8.6 mg tablet RxNorm: 848031 Take 1 Tablet(s) Oral QD as needed for constipation on day 2 of no bowel movement 08/09/19 25 025 Inactive Miralax 17 gram/dose oral powder RxNorm: 468341 Administer 17 Gram(s) Oral QD as needed for constipation on day 3 of no bowel movement 08/09/19 25 025 Inactive pregabalin 100 mg capsule RxNorm: 726319 Take 1 Capsule(s) Oral QAM every morning [...] (Concentrated) Insulin 500 unit/mL subcutaneous soln RxNorm: 823815 Inject 100 Unit(s) Subcutaneous AC before meals Three times daily before meals. 07/24/19 25 025 Inactive ammonium lactate 12 % topical cream RxNorm: 068149 Apply 1 Application Topical BID 07/20/19 25 No Stop Date Active ezetimibe 10 mg tablet RxNorm: 455509 Take 1 Tablet(s) Oral QD 07/18/19 25 No Stop Date Active senna 8.6 mg tablet RxNorm: 354677 Take 1 Tablet(s) Oral QD 07/18/19 25 025 Inactive metoprolol succinate ER 200 mg tablet,extended release 24 hr RxNorm: 196736 Take 1 Tablet(s) Oral QD 06/19/19 25 No Stop Date Active pantoprazole 40 mg tablet,delayed release RxNorm: 366860 Take 1 Tablet(s) Oral QAM every morning 06/19/19 25 No Stop Date Active hydralazine 50 mg tablet RxNorm: 255441 Take 1 Tablet(s) Oral QID 06/19/19 25 No Stop Date Active carbamazepine 200 mg tablet RxNorm: 584107 Take 1 Tablet(s) Oral BID 06/19/19 25 No Stop Date Active amlodipine 10 mg tablet RxNorm: 477286 Take 1 Tablet(s) Oral QD 06/19/19 25 No Stop Date Active Eliquis 5 mg tablet RxNorm: 2431963 Take 1 Tablet(s) Oral BID 06/19/19 25 No Stop Date Active pen needle, diabetic 30 gauge x 3/16 RxNorm: Use 1 6 times per day w/insulin 06/14/19 25 026 Active pen needle, diabetic 30 gauge x 3/16 RxNorm: Use 1 needle 6 times per day w/insulin 06/14/19 25 025 Inactive nystatin 100,000 unit/gram topical powder RxNorm: 992579 Apply 1 Application Topical BID as needed abdominal/breast/ groin folds 05/24/19 25 026 Active pregabalin 100 mg capsule RxNorm: 498514 Take 1 Capsule(s) Oral QAM every morning 05/22/19 025 Inactive nystatin 100,000 unit/gram topical powder RxNorm: 184380 Apply 1 Application Topical BID as needed abdominal/breast/ groin folds 04/11/20 24 024 Inactive chlorthalidone 25 mg tablet RxNorm: 965246 Take 1 Tablet(s) Oral QAM every morning 04/06/20 No Stop Date Active pregabalin 150 mg capsule RxNorm: 028519 Take 1 Capsule(s) Oral QHS every night at bedtime 03/31/20 24 024 Inactive Vascepa 1 gram capsule RxNorm: 9894823 Take 2 Capsule(s) Oral BID 03/30/20 24 025 Active rosuvastatin 40 mg tablet RxNorm: 498832 1 TAB ORALLY EVERY EVENING (DX:CORONARY ARTERY DISEASE) 03/28/20 24 No Stop Date Active venlafaxine ER 75 mg capsule,extended release 24 hr RxNorm: 473836 3 CAPS (225MG) ORALLY DAILY (DX: MOOD DISORDER) 03/28/20 24 No Stop Date Active pregabalin 100 mg capsule RxNorm: 783848 Take 1 Capsule(s) Oral QAM every morning 03/20/20 24 024 Inactive cholecalciferol (vitamin D3) 1,250 mcg (50,000 unit) capsule RxNorm: 349263 Take 1 Capsule(s) Oral QW once a week 03/15/20 025 Active Lancets,Thin 28 gauge RxNorm: Use 1 as directed TID lancet 03/08/20 24 10/23/2 024 Inactive Lancets,Thin 28 gauge RxNorm: Use [...] Insulin 100 unit/mL (3 mL) subcutaneous RxNorm: 5255765 Inject 40 Unit(s) Subcutaneous BID 03/07/20 025 Inactive Please dispense one month supply. Humulin R U-500 (Concentrated) Insulin 500 unit/mL subcutaneous soln RxNorm: 316727 Inject 100 Unit(s) Subcutaneous AC before meals [...] PRN) to be use with new Accu [place] meter 03/04/20 Inactive ok to substitute with any covered alternative test strip FreeStyle Chema 2 Sensor kit RxNorm: Use UD as directed 03/02/20 Inactive Pen Needle 30 gauge x 516 RxNorm: Pen(s) Use 1 needle as directed TID 10/17/20 24 10/17/2 024 Inactive nystatin 100,000 unit/gram topical powder RxNorm: 059298 Apply 1 Application Topical BID as needed abdominal/breast/ groin folds 03/02/20 24 024 Inactive FreeStyle Chema [...] (Concentrated) Insulin 500 unit/mL subcutaneous soln RxNorm: 604408 Inject 100 Unit(s) Subcutaneous TID 02/17/20 24 024 Inactive Humulin R U-500 (Concentrated) Insulin 500 unit/mL subcutaneous soln RxNorm: 482911 Inject 100 Unit(s) Subcutaneous TID 02/10/20 24 024 Inactive Basaglar KwikPen U-100 Insulin 100 unit/mL (3 mL) subcutaneous RxNorm: 4764223 Inject 30 Unit(s) Subcutaneous BID 02/10/20 24 024 Inactive Please dispense one month supply. pregabalin 100 mg capsule RxNorm: 519878 Take 1 Capsule(s) Oral QAM every morning 02/07/20 24 024 Inactive isosorbide mononitrate ER 60 mg tablet,extended release 24 hr RxNorm: 734378 Take 1 Tablet(s) Oral QD 02/01/20 24 025 Active aripiprazole 15 mg tablet RxNorm: 224513 Take 1/2 Tablet(s) Oral QD 02/01/20 24 025 Active torsemide 20 mg tablet RxNorm: 072341 1 TAB ORALLY DAILY (DX: EDEMA) 01/27/20 24 No Stop Date Active potassium chloride ER 20 mEq tablet,extended release(part/cryst) RxNorm: 9227490 2 TABS (40MEQ) ORALLY TWICE DAILY (DX: HYPOKALEMIA) 01/27/20 24 Inactive cephalexin 500 mg capsule RxNorm: 734869 Take 1 Capsule(s) Oral QID 12/17/19 24 Inactive cephalexin 500 mg capsule RxNorm: 056070 Take 1 Capsule(s) Oral QID 12/17/19 24 Inactive acetaminophen 500 mg tablet RxNorm: 991239 (MAX APAP:4GM/24HR) Take 1 Tablet(s) Oral TID as needed for pain 12/10/19 24 Inactive torsemide 20 mg tablet RxNorm: 592765 Take 1 Tablet(s) Oral QD 10/26/19 24 Inactive potassium chloride ER 20 mEq tablet,extended release RxNorm: 19800522 Take 2 Tablet(s) Oral BID 10/26/19 24 Inactive torsemide 20 mg tablet RxNorm: 609612 Take 1 Tablet(s) Oral QD 10/26/19 24 Inactive potassium chloride ER 20 mEq tablet,extended release RxNorm: 19800522 Take 2 Tablet(s) Oral BID 10/26/19 24 Inactive Artificial Tears (PF) 0.1 %-0.3 % drops in a dropperette RxNorm: 233260 Apply 1-2 Drop(s) Both eyes BID as needed 09/28/19 24 025 Inactive erythromycin 5 mg/gram (0.5 %) eye ointment RxNorm: 134631 Apply 1 Application Both eyes QHS every night at bedtime Instill ~1 cm ribbon into affected eye 09/28/19 24 Inactive Artificial Tears (PF) 0.1 %-0.3 % drops in a dropperette RxNorm: 481035 Apply 1-2 Drop(s) Both eyes BID as needed 09/28/19 24 Inactive erythromycin 5 mg/gram (0.5 %) eye ointment RxNorm: 981708 Apply 1 Application Both eyes QHS every night at bedtime Instill ~1 cm ribbon into affected eye 09/28/19 24 024 Inactive acetaminophen 500 mg tablet RxNorm: 901166 (MAX APAP:4GM/24HR) Take 1 Tablet(s) Oral TID as needed for pain 09/24/19 24 024 Inactive carvedilol 25 mg tablet RxNorm: 465178 Take 1 Tablet(s) Oral QD 09/08/19 24 No Stop Date Active pregabalin 100 mg capsule RxNorm: 317762 Take 1 Capsule(s) Oral QAM every morning 09/07/19 24 024 Inactive bisacodyl 10 mg rectal suppository RxNorm: 977225 Insert 1 Suppository Rectal QD as needed 07/13/19 24 No Stop Date Active ketoconazole 2 % shampoo RxNorm: 795072 Apply 1 Application Topical UD as directed 07/13/19 24 No Stop Date Active Ozempic 1 mg/dose (4 mg/3 mL) subcutaneous pen injector RxNorm: 8681832 Inject 1 Milligram(s) Subcutaneous QW once a week 07/13/19 24 No Stop Date Active Guaifenesin AC 10 mg-100 mg/5 mL oral liquid RxNorm: 809197 Take 10 Milliliter(s) Oral Q4H every four hours as needed 07/13/19 24 No Stop Date Active hydrocortisone 2.5 % topical cream RxNorm: 725450 Apply 1 Application Topical BID as needed 07/13/19 24 No Stop Date Active rosuvastatin 40 mg tablet RxNorm: 901672 Take 1 Tablet(s) Oral QPM every evening 07/13/19 24 024 Inactive ezetimibe 10 mg tablet RxNorm: 082767 Take 1 Tablet(s) Oral QD 07/13/19 24 025 Inactive polyethylene glycol 3350 17 gram/dose oral powder RxNorm: 006359 Take 17 Gram(s) Oral BID as needed mix in 4-8ox water 07/13/19 24 025 Inactive aripiprazole 15 mg tablet RxNorm: 518262 Take 1/2 Tablet(s) Oral QD 07/13/19 24 024 Inactive isosorbide mononitrate ER 60 mg tablet,extended release 24 hr RxNorm: 232152 Take 1 Tablet(s) Oral QD 07/13/19 24 024 Inactive ammonium lactate 12 % topical cream RxNorm: 921182 Apply 1 Application Topical BID 07/13/19 24 025 Inactive rosuvastatin 20 mg sprinkle capsule RxNorm: 4239839 Take 1 Capsule(s) Oral QD 07/13/19 24 025 Inactive Vascepa 1 gram capsule RxNorm: 6193416 Take 2 Capsule(s) Oral BID 07/13/19 24 024 Inactive venlafaxine ER 75 mg capsule,extended release 24 hr RxNorm: 867881 Take 3 Capsule(s) Oral QD 07/13/19 24 024 Inactive Basaglar KwikPen U-100 Insulin 100 unit/mL (3 mL) subcutaneous RxNorm: 9137608 Inject 30U SubQ twice daily 07/07/19 24 024 Inactive Please dispense one month supply. Basaglar KwikPen U-100 Insulin 100 unit/mL (3 mL) subcutaneous RxNorm: 5585590 Inject 30U SubQ twice daily 07/07/19 24 024 Inactive Please dispense one month supply. pregabalin 150 mg capsule RxNorm: 006479 Take 1 Capsule(s) Oral QHS every night at bedtime 07/05/19 24 024 Inactive pregabalin 150 mg capsule RxNorm: 287463 Take 1 Capsule(s) Oral QHS every night at bedtime 07/05/19 24 024 Inactive polyethylene glycol 3350 17 gram/dose oral powder RxNorm: 744443 Take 1 Packet Oral QD as needed (1 packet = 17g) mix with 4-8oz of liquid 06/15/19 24 024 Inactive bisacodyl 10 mg rectal suppository RxNorm: 415129 Insert one suppository per rectum once daily as needed for constipation 06/15/19 24 024 Inactive bisacodyl 10 mg rectal suppository RxNorm: 219997 Insert one suppository per rectum once daily as needed for constipation 06/15/19 24 024 Inactive pregabalin 100 mg capsule RxNorm: 043763 Take 1 Capsule(s) Oral QAM every morning 04/27/20 23 024 Inactive Levemir FlexPen 100 unit/mL (3 mL) solution subcutaneous insulin pen RxNorm: 046572 Inject 30 Unit(s) Subcutaneous BID 04/27/20 23 024 Inactive rosuvastatin 40 mg tablet RxNorm: 001317 Take 1 Tablet(s) Oral QPM every evening 04/16/20 024 Inactive D/C rosuvastatin 20mg venlafaxine ER 75 mg capsule,extended release 24 hr RxNorm: 534443 Take 3 Capsule(s) Oral QD 04/14/20 023 Inactive pregabalin 100 mg capsule RxNorm: 758175 Take 1 Capsule(s) Oral QAM every morning [...] strip clotrimazole 1 % topical cream RxNorm: 719183 Take apply topically to abdominal folds twice daily for 14 days 03/12/20 024 Inactive Ozempic 1 mg/dose (4 mg/3 mL) subcutaneous pen injector RxNorm: 5245053 Inject 1 Milligram(s) Subcutaneous QW once a week 03/11/20 23 023 Inactive rosuvastatin 20 mg tablet RxNorm: 416246 Take 1 Tablet(s) Oral QD 02/26/20 23 023 Inactive d/c pravastatin 80mg Ozempic 1 mg/dose (4 mg/3 mL) subcutaneous pen injector RxNorm: 2675100 Inject 1 Milligram(s) Subcutaneous QW once a week 02/20/20 23 023 Inactive pregabalin 150 mg capsule RxNorm: 294130 Take 1 Capsule(s) Oral HS at bed time 02/19/20 23 023 Inactive pregabalin 100 mg capsule RxNorm: 603546 Take 1 Capsule(s) Oral QAM every morning 02/18/20 23 023 Inactive venlafaxine ER 75 mg capsule,extended release 24 hr RxNorm: 568647 Take 3 Capsule(s) Oral QD 02/04/20 23 023 Inactive FreeStyle Chema 2 Sensor kit RxNorm: use as directed 02/04/20 23 023 Inactive FreeStyle Chema 2 Sensor kit RxNorm: use as directed 02/04/20 23 024 Inactive fluconazole 150 mg tablet RxNorm: 660503 Take 1 Tablet(s) Oral on day 3 and on day 6 02/03/20 024 Inactive venlafaxine ER 150 mg capsule,extended release 24 hr RxNorm: 333492 Take 1 Capsule(s) Oral QD 02/03/20 023 Inactive chlorthalidone 25 mg tablet RxNorm: 159478 Take 1 Tablet(s) Oral QAM every morning 02/03/20 23 024 Inactive acetaminophen 500 mg tablet RxNorm: 593273 1 TABLET ORALLY 3 TIMES DAILY (MAX APAP:4GM/24HR) 12/15/19 23 023 Inactive potassium chloride ER 20 mEq tablet,extended release RxNorm: 174985 Take 1 Tablet(s) Oral BID 12/09/19 23 024 Inactive d/c 20mEq once daily (sent from hospital) clotrimazole 1 % topical cream RxNorm: 094424 apply 1g topically to top of feet and in between toes BID 12/09/19 23 025 Inactive nystatin 100,000 unit/gram topical powder RxNorm: 376426 APPLY TO AFFECTED AREAS TOPICALLY 2 TIMES DAILY 11/21/19 23 023 Inactive Nystop 100,000 unit/gram topical powder RxNorm: 927952 Apply to abd folds, under breasts and L side of groin Topical BID x 14 days, then BID PRN 11/20/19 23 023 Inactive dx: yeast dermatitis [place] Ultra Strength 4 %-30 %-10 % topical cream RxNorm: 111145 Apply 1 Gram(s) Topical QID PRN to feet and legs for neuropathic pain 11/11/19 23 024 Inactive clotrimazole 1 % topical cream RxNorm: 530593 Apply 1/2 Gram(s) Topical BID Apply to affected areas of groin, periarea, and abdominal topically 2 times daily 11/10/19 23 023 Inactive hydrocortisone 2.5 % topical cream RxNorm: 376880 Apply 1/2 Gram(s) Topical BID as needed 11/10/19 024 Inactive Levemir FlexPen 100 unit/mL (3 mL) solution subcutaneous insulin pen RxNorm: 980121 Inject 30 Unit(s) Subcutaneous BID 10/07/19 023 Inactive Humulin R U-500 (Concentrated) Insulin 500 unit/mL subcutaneous soln RxNorm: 017599 Inject 100 Unit(s) Subcutaneous TID 10/07/19 024 Inactive Ozempic 0.25 mg or 0.5 mg (2 mg/3 mL) subcutaneous pen injector RxNorm: 3693999 Inject 1/2 Milligram(s) Subcutaneous QW once a week 10/07/19 024 Inactive aripiprazole 15 mg tablet RxNorm: 021669 1/2 TAB (7.5MG) ORALLY DAILY (DX:MAJOR DEPRESSIVE DISORDER) 09/23/19 23 023 Inactive Accu-Chek Guide test strips RxNorm: Use 1 Test Strip QID 09/15/19 23 023 Inactive ok to substitute with any covered alternative test strip Lancets,Thin 28 gauge RxNorm: Use 1 as directed QID 09/15/19 23 023 Inactive torsemide 20 mg tablet RxNorm: 428041 Take 1 Tablet(s) Oral BID 09/09/19 23 024 Inactive d/c once daily dosing carvedilol 25 mg tablet RxNorm: 471133 Take 1 Tablet(s) Oral QD 08/25/19 23 024 Inactive pregabalin 150 mg capsule RxNorm: 308903 1 Capsule(s) Oral HS at bed time 08/18/19 23 023 Inactive pregabalin 100 mg capsule RxNorm: 408869 1 Capsule(s) Oral QAM every morning 08/18/19 23 023 Inactive carvedilol 25 mg tablet RxNorm: 738348 1 Tablet(s) Oral QD 07/28/19 23 023 Inactive lisinopril 20 mg tablet RxNorm: 745793 Give 1 Tablet(s) Oral QD 07/28/19 23 023 Inactive Lyrica 150 mg capsule RxNorm: 417036 Take 1 Capsule(s) Oral QHS every night at bedtime 07/19/19 23 023 Inactive d/c 100mg dose Diflucan 150 mg tablet RxNorm: 128542 Take 1 Tablet(s) Oral QD repeat on day 3 and 6 07/19/19 23 023 Inactive pregabalin 100 mg capsule RxNorm: 807244 Take 1 Capsule(s) Oral QAM every morning 07/19/19 23 023 Inactive gatifloxacin 0.5 % eye drops RxNorm: 647952 Instill 1 Drop(s) as directed TID Instill 1 drop in to affected eye(s) starting 1 day prior to surgery and continue until gone (do not exceed 4 weeks). 07/13/19 23 023 Inactive carvedilol 25 mg tablet RxNorm: 701016 2 Tablet(s) Oral BID 07/13/19 023 Inactive Humulin R Regular U-100 Insulin 100 unit/mL injection solution RxNorm: 399617 85 Unit(s) Injection TID 07/13/19 23 023 Inactive ketorolac 0.5 % eye drops RxNorm: 775288 Instill 1 Drop(s) as directed QID Instill 1 drop into affected eye(s) 4 times daily starting 1 day prior to surgery and continue until gone (do not exceed 4 weeks). 07/13/19 23 023 Inactive Diflucan 150 mg tablet RxNorm: 166451 Take 1 Tablet(s) Oral QD repeat on day 3 and 6 06/30/19 23 023 Inactive Accu-Chek Guide test strips RxNorm: Use 1 Test Strip QID Use 1 test strip to monitor blood glucose 4 times daily and as needed. Dx:E11.42. 06/23/19 023 Inactive ok to substitute with any covered alternative test strip dextromethorphan-gu aifenesin 10 mg-100 mg/5 mL oral liquid RxNorm: 284418 Take 10 Milliliter(s) Oral every 4 hours as needed for cough 06/19/19 023 Inactive dextromethorphan-gu aifenesin 10 mg-100 mg/5 mL oral liquid RxNorm: 897906 Take 10 Milliliter(s) Oral every 4 hours as needed for cough 06/19/19 023 Inactive Lyrica 150 mg capsule RxNorm: 492748 Take 1 Capsule(s) Oral QHS every night at bedtime 06/18/19 023 Inactive d/c 100mg dose aripiprazole 15 mg tablet RxNorm: 197648 /2 TAB (7.5MG) ORALLY DAILY (DX:MAJOR DEPRESSIVE DISORDER) 06/05/19 023 Inactive pregabalin 100 mg capsule RxNorm: 520852 1 Capsule(s) Oral QAM every morning 06/02/19 023 Inactive Banophen 50 mg capsule RxNorm: 7544147 Take 1 Capsule(s) Oral Q6H every 6 hours as needed 05/19/19 23 No Stop Date Active Novolog Flexpen U-100 Insulin aspart 100 unit/mL (3 mL) subcutaneous RxNorm: 5623657 Inject 10 Unit(s) Subcutaneous QHS every night at bedtime with nighttime snack 04/08/20 022 Inactive Novolog Flexpen U-100 Insulin aspart 100 unit/mL (3 mL) subcutaneous RxNorm: 2004866 Inject 42 Unit(s) Subcutaneous TID in addition to sliding scale 04/08/20 022 Inactive d/c 36u albuterol sulfate HFA 90 mcg/actuation aerosol inhaler RxNorm: 8456977 Take 2 Puff(s) Inhalation Q4H every four hours as needed as needed for SOB, cough, or wheezing 04/07/20 22 030 Active Banophen 50 mg capsule RxNorm: 9712601 Take 1 Capsule(s) Oral Q6H every 6 hours as needed 04/06/20 023 Inactive diphenhydramine 50 mg tablet RxNorm: 5474252 Take 1 Tablet(s) Oral Q6H every 6 hours as needed 04/06/20 22 022 Inactive diphenhydramine 50 mg tablet RxNorm: 6784772 1 Tablet(s) Oral Q6H every 6 hours as needed 04/06/20 022 Inactive Abilify 15 mg tablet RxNorm: 409800 1/2 Tablet(s) Oral QD 03/10/20 023 Inactive Shingrix (PF) 50 mcg/0.5 mL intramuscular suspension, kit RxNorm: 2790824 Administer 1/2 Milliliter(s) Intramuscular QD one time shingrix step 2 ( step 1 given 11/04/21) WITH needle - Nursing please administer upon arrival and once administered post a bridge message with date of administration, 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, expiration date, and lot# so we can update [facility] 02/18/20 22 022 Inactive dispense with needle Shingrix (PF) 50 mcg/0.5 mL intramuscular suspension, kit RxNorm: 2290662 Administer 1/2 Milliliter(s) Intramuscular QD one time shingrix step 2 ( step 1 given 11/04/21) WITH needle - Nursing please administer upon arrival and once administered 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, 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, 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, 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 lot# so we can update [facility] 02/18/20 22 022 Inactive dispense with needle Lyrica 100 mg capsule RxNorm: 990970 Take 1 Capsule(s) Oral QAM every morning 01/08/20 22 022 Inactive d/c 50mg dose acetaminophen 500 mg tablet RxNorm: 026990 Take 1 Tablet(s) Oral TID 01/08/20 22 022 Inactive d/c PRN order Lyrica 150 mg capsule RxNorm: 593407 Take 1 Capsule(s) Oral QHS every night at bedtime 01/08/20 22 023 Inactive d/c 100mg dose polyethylene glycol 3350 17 gram/dose oral powder RxNorm: 598440 Take 17=1 capful Gram(s) Oral QD mix with 4-8oz of liquid 01/08/20 22 025 Inactive take this in addition to BID prn order Abilify 5 mg tablet RxNorm: 025790 Take 1 Tablet(s) Oral QD take 1 tab po QD #30 refill 5 dx: MDD 12/12/19 22 022 Inactive Abilify 5 mg tablet RxNorm: 570965 Take 1 Tablet(s) Oral QD take 1 tab po QD #30 refill 5 dx: MDD 12/12/19 22 022 Inactive Novolog Flexpen U-100 Insulin aspart 100 unit/mL (3 mL) subcutaneous RxNorm: 5734403 Inject 42 Unit(s) Subcutaneous TID in addition to sliding scale 12/10/19 22 022 Inactive d/c 36u chlorthalidone 25 mg tablet RxNorm: 351047 Take 1 Tablet(s) Oral QAM every morning 12/10/19 22 023 Inactive pregabalin 50 mg capsule RxNorm: 435771 Take 1 Capsule(s) Oral QAM every morning 11/12/19 22 022 Inactive tetanus-diphtheria toxoids-Td 2 Lf unit-2 Lf unit/0.5 mL IM suspension RxNorm: 139 Take 0.5 Miscellaneous Intramuscular 11/12/19 22 022 Inactive need tdap - nursing to administer upon arrival pregabalin 50 mg capsule RxNorm: 734833 Take 1 Capsule(s) Oral QAM every morning 10/16/19 22 022 Inactive pregabalin 50 mg capsule RxNorm: 517004 Take 1 Capsule(s) Oral QAM every morning 10/16/19 22 022 Inactive pregabalin 50 mg capsule RxNorm: 363756 1 Capsule(s) Oral QAM every morning 10/15/19 22 022 Inactive Shingrix (PF) 50 mcg/0.5 mL intramuscular suspension, kit RxNorm: 9890188 Administer 1/2 Milliliter(s) Intramuscular one time Nursing please administer upon arrival and once administered 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, and lot# so we [...] aspart 100 unit/mL (3 mL) subcutaneous RxNorm: 5569268 Inject 10 Unit(s) Subcutaneous QHS every night at bedtime with nighttime snack 10/08/19 22 022 Inactive Shingrix (PF) 50 mcg/0.5 mL intramuscular suspension, kit RxNorm: 5078400 ADMINISTER 2-DOSE SERIES PER CDC GUIDELINES 10/08/19 22 022 Active Shingrix (PF) 50 mcg/0.5 mL intramuscular suspension, kit RxNorm: 1883432 ADMINISTER 2-DOSE SERIES PER CDC GUIDELINES 10/08/19 22 022 Inactive Novolog Flexpen U-100 Insulin aspart 100 unit/mL (3 mL) subcutaneous RxNorm: 6086975 Inject 36 Unit(s) Subcutaneous TID in addition to sliding scale 10/08/19 22 022 Inactive cholecalciferol (vitamin D3) 1,250 mcg (50,000 unit) capsule RxNorm: 899262 Take 1 Capsule(s) Oral QW once a week 10/08/19 22 024 Inactive Novofine Autocover 30 gauge x 1/3 needle RxNorm: Use 1 Miscellaneous UD as directed Use 1 needle as directed to administer insulin 5 times a day Dx:E11.42. 10/03/19 22 022 Inactive ok to substitute with any covered alternative pen needle benzoyl peroxide 10 % topical cleanser RxNorm: 198004 Apply 1 Application Topical QD apply to face, wash rinse and dry once daily (may change to QOD if drying) 08/19/19 22 022 Inactive (%covered by insurance) #60ml refill 11 dx: acne benzoyl peroxide 10 % topical cleanser RxNorm: 825293 Apply 1 Application Topical QD apply to face, wash rinse and dry once daily (may change to QOD if drying) 08/19/19 22 022 Inactive (%covered by insurance) #60ml refill 11 dx: acne benzoyl peroxide 10 % topical cleanser RxNorm: 403072 Apply 1 Application Topical QD apply to face, wash rinse and dry once daily (may change to QOD if drying) 08/19/19 022 Inactive (%covered by insurance) #60ml refill 11 dx: acne Lyrica 50 mg capsule RxNorm: 470587 Take 1 Capsule(s) Oral QAM every morning Take 1 capsule by mouth once daily 08/19/19 22 022 Inactive benzoyl peroxide 10 % topical cleanser RxNorm: 160483 Apply 1 Application Topical QD apply to face, wash rinse and dry once daily (may change to QOD if drying) 08/19/19 22 022 Inactive (%covered by insurance) #60ml refill 11 dx: acne Lyrica 100 mg capsule RxNorm: 900192 Take 1 Capsule(s) Oral QHS every night at bedtime Take 1 capsule by mouth once daily at bedtime 08/19/19 22 022 Inactive Lyrica 100 mg capsule RxNorm: 135601 Take 1 Capsule(s) Oral QHS every night at bedtime Take 1 capsule by mouth once daily at bedtime 08/16/19 22 022 Inactive Lyrica 50 mg capsule RxNorm: 723144 Take 1 Capsule(s) Oral QAM every morning Take 1 capsule by mouth once daily 08/16/19 22 022 Inactive Levemir FlexTouch U-100 Insulin 100 unit/mL (3 mL) subcutaneous pen RxNorm: 973090 Inject 86 Unit(s) Subcutaneous BID 08/05/19 22 022 Inactive d/c 83units BID Lyrica 100 mg capsule RxNorm: 946020 Take 1 Capsule(s) Oral QHS every night at bedtime Take 1 capsule by mouth once daily at bedtime 07/14/19 22 022 Inactive Lyrica 50 mg capsule RxNorm: 802347 Take 1 Capsule(s) Oral QAM every morning Take 1 capsule by mouth once daily 07/14/19 22 022 Inactive Levemir FlexTouch U-100 Insulin 100 unit/mL (3 mL) subcutaneous pen RxNorm: 452556 Inject 83 Unit(s) Subcutaneous BID 07/08/19 22 [...] test strip hydralazine 50 mg tablet RxNorm: 499406 Take 1 Tablet(s) Oral QID 05/05/20 21 022 Inactive venlafaxine ER 225 mg tablet,extended release 24 hr RxNorm: 019085 Take 1 Tablet(s) Oral QD 05/05/20 021 Inactive venlafaxine ER 225 mg tablet,extended release 24 hr RxNorm: 447320 Take 1 Tablet(s) Oral QD 05/05/20 022 Inactive isosorbide mononitrate ER 30 mg tablet,extended release 24 hr RxNorm: 269593 Take 1 Tablet(s) Oral QD 05/05/20 024 Inactive hydralazine 50 mg tablet RxNorm: 913232 Take 1 Tablet(s) Oral QID 05/05/20 Inactive aspirin 81 mg tablet,delayed release RxNorm: 852952 Take 1 Tablet(s) Oral QD 03/31/20 022 Inactive Vitamin D2 1,250 mcg (50,000 unit) capsule RxNorm: 3059911 Take 1 Capsule(s) Oral QW once a week x 12 weeks 03/31/20 022 Inactive Vitamin D2 1,250 mcg (50,000 unit) capsule RxNorm: 6964198 Take 1 Capsule(s) Oral QW once a week 03/31/20 Inactive Zetia 10 mg tablet RxNorm: 629752 Take 1 Tablet(s) Oral QD 03/31/20 024 Inactive Zetia 10 mg tablet RxNorm: 639628 Take 1 Tablet(s) Oral QD 03/31/20 021 Inactive hydralazine 25 mg tablet RxNorm: 436407 Take 1 Tablet(s) Oral QID 03/31/20 021 Inactive hydralazine 25 mg tablet RxNorm: 535255 Take 1 Tablet(s) Oral QID 03/31/20 021 Inactive hydralazine 10 mg tablet RxNorm: 177872 Take 1 Tablet(s) Oral QID 03/03/20 021 Inactive cephalexin 500 mg tablet RxNorm: 323091 Take 1 Tablet(s) Oral QID 02/27/20 021 Inactive cephalexin 500 mg tablet RxNorm: 431374 Take 1 Tablet(s) Oral QID 02/27/20 021 Inactive lisinopril 40 mg tablet RxNorm: 661145 Take 1 Tablet(s) Oral QD 02/11/20 023 Inactive Eliquis 5 mg tablet RxNorm: 0033159 Take 1 Tablet(s) Oral BID 01/05/20 21 025 Inactive Eliquis 5 mg tablet RxNorm: 1543177 Take 2 Tablet(s) Oral QD 01/01/20 21 021 Inactive Lyrica 50 mg capsule RxNorm: 342902 Take 1 Capsule(s) Oral QAM every morning 12/24/19 021 Inactive Lyrica 100 mg capsule RxNorm: 327910 Take 1 Capsule(s) Oral QHS every night at bedtime 12/24/19 021 Inactive clotrimazole 1 % topical cream RxNorm: 848156 Apply to right foot and toes Topical BID 12/04/19 21 023 Inactive metoprolol succinate ER 200 mg tablet,extended release 24 hr RxNorm: 590725 Take 1 Tablet(s) Oral QD 12/04/19 21 023 Inactive ciprofloxacin 500 mg tablet RxNorm: 026732 Take 1 Tablet(s) Oral QD 11/30/19 21 021 Inactive DX ofloxacin otic drops Accu-Chek Guide test strips RxNorm: USE 1 TO CHECK GLUCOSE 4 TIMES DAILY AND NEEDED 11/15/19 21 023 Inactive Blood Glucose Test strips RxNorm: Use 1 Test Strip QID at PRN 11/05/19 21 023 Inactive E11.42 lisinopril 30 mg tablet RxNorm: 095920 Take 1 Tablet(s) Oral QD 10/30/19 021 Inactive lisinopril 20 mg tablet RxNorm: 174337 Take 1 Tablet(s) Oral QD 10/23/19 21 021 Inactive lisinopril 20 mg tablet RxNorm: 717792 Take 1 Tablet(s) Oral QD 10/23/19 21 021 Inactive lisinopril 10 mg tablet RxNorm: 478547 Take 1 Tablet(s) Oral QD 10/02/19 21 021 Inactive icosapent ethyl 1 gram capsule RxNorm: 4600550 Take 2 Capsule(s) (2 gm) Oral BID with meals 09/12/19 21 024 Inactive Okay to dispense one 2gm tab if you have that available. icosapent ethyl 1 gram capsule RxNorm: 9261297 Take 2 Capsule(s) Oral BID 09/12/19 021 Inactive Okay to dispense one 2gm tab if you have that available. amlodipine 10 mg tablet RxNorm: 303733 Take 1 Tablet(s) Oral QD 09/04/19 21 021 Inactive aspirin 81 mg tablet,delayed release RxNorm: 139385 Take 1 Tablet(s) Oral QD 09/04/19 21 021 Inactive Levemir FlexTouch U-100 Insulin 100 unit/mL (3 mL) subcutaneous pen RxNorm: 768768 Inject 150 Unit(s) Subcutaneous BID 09/04/19 21 022 Inactive venlafaxine ER 150 mg tablet,extended release 24 hr RxNorm: 317899 Take 1 Tablet(s) Oral QD 09/04/19 21 021 Inactive clotrimazole-betame thasone 1 %-0.05 % topical cream RxNorm: 074023 Apply to rash on red area on left abdomen/chest Topical BID 08/10/19 21 021 Inactive amlodipine 5 mg tablet RxNorm: 236619 Take 1 Tablet(s) Oral QD 07/31/19 21 021 Inactive cephalexin 500 mg tablet RxNorm: 032801 Take 1 Tablet(s) Oral BID BID - Twice Daily 07/31/19 21 021 Inactive Start 08/01/20 pantoprazole 40 mg tablet,delayed release RxNorm: 052800 Take 1 Tablet(s) Oral QAM every morning 07/08/19 025 Inactive clopidogrel 75 mg tablet RxNorm: 367461 Take 1 Tablet(s) Oral QD 07/08/19 021 Inactive Blood Glucose Test strips RxNorm: Use 1 Test Strip QID at PRN 07/08/19 21 Inactive E11.42 senna 8.6 mg tablet RxNorm: 662198 Take 1 Tablet(s) Oral QD 07/08/19 025 Inactive Novolog Flexpen U-100 Insulin aspart 100 unit/mL (3 mL) subcutaneous RxNorm: 6592170 Administer per sliding scale Milliliter(s) Subcutaneous TID 151-200: 10 u; 201-250: 20 u; 251-300: 30 u; 301-350: 40 u; 351-400: 50 u. 07/08/19 022 Inactive lisinopril 5 mg tablet RxNorm: 991006 Take 1 Tablet(s) Oral QD 07/08/19 021 Inactive Novolog Flexpen U-100 Insulin aspart 100 unit/mL (3 mL) subcutaneous RxNorm: 2121863 Inject 85 Unit(s) Subcutaneous TID 07/08/19 022 Inactive pravastatin 80 mg tablet RxNorm: 548573 Take 1 Tablet(s) Oral QHS every night at bedtime 07/08/19 023 Inactive clotrimazole 1 % topical cream RxNorm: 123022 Apply to bilateral groin areas Topical BID 07/08/19 21 022 Inactive metoprolol succinate ER 200 mg tablet,extended release 24 hr RxNorm: 708121 Take 1 Tablet(s) Oral QD 07/08/19 21 021 Inactive Vitamin D3 25 mcg (1,000 unit) tablet RxNorm: 911170 Take 1 Tablet(s) Oral QD 07/08/19 021 Inactive isosorbide dinitrate 30 mg tablet RxNorm: 277803 Take 1 Tablet(s) Oral QD 07/08/19 21 021 Inactive carbamazepine 200 mg tablet RxNorm: 969429 Take 1 Tablet(s) Oral BID 07/08/19 21 025 Inactive Levemir FlexTouch U-100 Insulin 100 unit/mL (3 mL) subcutaneous pen RxNorm: 547472 Inject 140 Unit(s) Subcutaneous BID 07/08/19 21 021 Inactive torsemide 20 mg tablet RxNorm: 950740 Take 1 Tablet(s) Oral QD 07/08/19 21 023 Inactive venlafaxine 75 mg tablet RxNorm: 478779 Take 1 Tablet(s) Oral QD 07/08/19 021 Inactive acetaminophen 500 mg tablet RxNorm: 209253 Take 1 Tablet(s) Oral TID as needed for headache 06/18/19 021 Inactive acetaminophen 500 mg tablet RxNorm: 189475 Take 1 Tablet(s) Oral TID as needed for headache 06/18/19 021 Inactive Lyrica 100 mg capsule RxNorm: 107800 Take 1 Capsule(s) Oral QHS every night at bedtime 06/11/19 021 Inactive Lyrica 50 mg capsule RxNorm: 360157 Take 1 Capsule(s) Oral QAM every morning 06/10/19 21 021 Inactive hydrocortisone 2.5 % topical cream RxNorm: 913785 Apply to bilateral groin creases Topical BID 05/15/20 20 021 Inactive clotrimazole 1 % topical cream RxNorm: 630284 Apply to bilateral groin areas Topical BID 05/15/20 20 021 Inactive Lyrica 50 mg capsule RxNorm: 008531 Take 1 Capsule(s) Oral QAM every morning 05/14/20 20 020 Inactive Lyrica 100 mg capsule RxNorm: 784279 Take 1 Capsule(s) Oral QHS every night [...] Inactive Nystop 100,000 unit/gram topical powder RxNorm: 602982 Apply to abd folds, under breasts and L side of groin Topical BID x 14 days, then BID PRN 04/08/20 20 Inactive dx: yeast dermatitis Lyrica 100 mg capsule RxNorm: 184380 Take 1 Capsule(s) Oral QHS every night at bedtime 03/13/20 20 Inactive Lyrica 50 mg capsule RxNorm: 571524 Take 1 Capsule(s) Oral QAM every morning 03/13/20 20 Inactive ketoconazole 2 % shampoo RxNorm: 556606 Apply Topical two times a week with showers 03/11/20 20 024 Inactive cholecalciferol (vitamin D3) 50 mcg (2,000 unit) tablet RxNorm: 788766 Take 1 Tablet(s) Oral QD 03/11/20 20 021 Inactive Zetia 10 mg tablet RxNorm: 707609 Take 1 Tablet(s) Oral QD 03/07/20 20 021 Inactive Zetia 10 mg tablet RxNorm: 671023 Take 1 Tablet(s) Oral QD 03/07/20 20 020 Inactive Lyrica 50 mg capsule RxNorm: 557925 Take 1 Capsule(s) Oral QAM every morning 02/15/20 20 Inactive Lyrica 100 mg capsule RxNorm: 856085 Take 1 Capsule(s) Oral QHS every night at bedtime 02/15/20 20 Inactive Lyrica 100 mg capsule RxNorm: 252361 Take 1 Capsule(s) Oral QHS every night at bedtime 02/15/20 20 020 Inactive Lyrica 50 mg capsule RxNorm: 027389 Take 1 Capsule(s) Oral QAM every morning 02/15/20 20 020 Inactive venlafaxine ER 75 mg capsule,extended release 24 hr RxNorm: 922607 Take 3 Capsule(s) Oral QD 06/12/19 023 Inactive polyethylene glycol 3350 17 gram/dose oral powder RxNorm: 197630 Take 17=1 capful Gram(s) Oral BID as needed mix with 4-8oz of liquid 06/12/19 22 024 Inactive icosapent ethyl 1 gram capsule RxNorm: 5856253 Take 2 Capsule(s) (2 gm) Oral BID with meals 10/07/19 23 023 Inactive Okay to dispense one 2gm tab if you have that available. Levemir FlexTouch U-100 Insulin 100 unit/mL (3 mL) subcutaneous pen RxNorm: 667898 Inject 80 Unit(s) Subcutaneous BID 07/14/19 23 023 Inactive metoprolol succinate ER 200 mg tablet,extended release 24 hr RxNorm: 641099 Take 1 Tablet(s) Oral QD 08/12/19 23 025 Inactive loperamide 2 mg capsule RxNorm: 370877 Take 1 Capsule(s) Oral QID as needed 09/06/19 25 025 Inactive hydralazine 50 mg tablet RxNorm: 398200 Take 1 Tablet(s) Oral QID 08/12/19 23 025 Inactive Soft Touch Lancets RxNorm: miscellaneous 03/04/20 24 025 Inactive Novolog Flexpen U-100 Insulin aspart 100 unit/mL (3 mL) subcutaneous RxNorm: 6105128 Insert 30 Unit(s) Subcutaneous TID with meals [...] Status Date Patient Education: Patient Medication Summary Zyyjlpaln95/10/2025Referral: [facility] [address] [id number] USReferralRecords requested ppointment: Harrison Munson WPtel: [address] [place], [place] [phone] USF/U008/08/2024ppointment: Harrison Munson WPtel: [address] [id number] USF/U007/11/2024Referral: [facility] [place]/Endocrinology WPtel: [address] [facility] [address] [id number] USReferralNo Records Ijkhdgfy90/24/2025ppointment: [place] WPtel: [address] [facility] 300 [id number] USAWV02/08/2024ppointment: Arpit Harrison WPtel: [address] [facility] 300 [id number] USF/U001/11/2024ppointment: Sandra Clark WPtel: [address] [facility] 300 [id number] [facility] Follow Up12/09/2022ppointment: Tapan Shirley WPtel: [address] [facility] 300 [id number] USTCM10/26/2022Referral: [facility] WPtel: [address], [address] [id number] USReferralRecords Lzgpdcbh80/08/2023ppointment: Tapan Shirley WPtel: [address] [facility] 300 [id number] USF/U008/11/2022ppointment: Tapan Shirley WPtel: [address] [facility] 300 [id number] USF/U007/14/2022ppointment: Tapan Shirley WPtel: [address] [facility] 300 [id number] USF/U002/10/2022eferral: [facility] [place] WPtel: [address] [facility] [address] [id number] PUPsqqborwDogwplyce91/12/2022Referral: General CardiologyReferralCompleted 1Referral: General PsychologistReferralClosedReferral: General PsychiatristReferralPatient/Family [...] Sister Jyotsna involved in his care cell# [phone] Guardian: Giulia (tapan met in person 09/01/21), [...]
--- OUTSIDE RECORDS SUMMARY | 2024-11-10 21:04 | XMS_ITS | CCD ---
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 Unknown No [...] Unknown Assisted 09/03/[address]: 725011598 No Alcohol Consum ption 09/02/2020 Allergies, Adverse Reactions, Alerts Substance Reaction Codes Entered Date Inactivated Date Status * NO KNOWN FOOD ALLERGIES Exvdyau4107/13/2023No Inactive DateActiveLISINOPRILRxNorm: 422849002/12/2020No Inactive DateActiveMetformin KEyXtabtzs53/28/2020No Inactive DateActive* NO KNOWN ENVIRONMENTAL ZONITUUMLBmjkkib08/27/2024No Inactive DateActive Problems Condition Codes Effective Dates Condition St atus Constipation by delayed colonic transit ICD-10: K59.01 ICD-9: 564.0106/5ActiveHypokalemiaICD-10: E87.6 ICD-9: 276.806/5ActiveLoose stoolsICD-10: R19.5 ICD-9: 787.706tiveParaparesis of both lower limbsICD-10: G82.20 ICD-9: 344.106/5ActiveSeizure disorderICD-10: G40.909 ICD-9: 345.9006/5ActiveType 2 diabetes mellitus with diabetic polyneuropathy, with long-term current use of insulinICD-10: E11.42 ICD-9: 250.6006/5ActiveAmputated toe of right footICD-10: S98.131A ICD-9: 895.0055ActiveHypercoagulable stateICD-10: D68.59 ICD-9: 289.81055ActiveLower extremity edemaICD-10: R60.0 ICD-9: 782.3055ActiveMajor depression, recurrentICD-10: F33.9 ICD-9: 296.3005/5ActiveOnychogryposisICD-10: L60.2 ICD-9: 703.8055ActivePulmonary noduleSNOMED CT: 328247388 ICD-10: R91.1 ICD-9: 793.11055ActiveRecurrent major depressive disorder, in partial remissionICD-10: F33.41 ICD-9: 296.35055ActiveStage 2 chronic 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ICD-10: E11.22 ICD-9: 250.4005/5ActivePressure ulcer of left calf, unstageableICD-10: L89.890 ICD-9: 707.0905ResolvedBody mass index [BMI] 60.0-69.9, adultSNOMED CT: 504463045 ICD-10: Z68.44 ICD-9: V85.4403/5ActiveMixed incontinenceSNOMED CT: 20308471 ICD-10: N39.46 ICD-9: 788.3303/5ActiveDiabetic neuropathy associated with type 2 diabetes mellitusICD-10: E11.40 ICD-9: 250.6002/5ActiveHemorrhoidsICD-10: K64.9 ICD-9: 455.6025ActivePVD (peripheral vascular disease)ICD-10: I73.9 ICD-9: 443.9025ActiveCandidal intertrigoICD-10: B37.2 ICD-9: 112.301/5ActiveHyperlipidemia associated with type 2 diabetes mellitusICD-10: E11.69 ICD-9: 250.8001/5ActiveHypertensive heart disease without heart failure ICD-10: I11.9 ICD-9: 402.90015ActiveAdvance care planningICD-10: Z71.89 ICD-9: V65.49124ActiveLow back painICD-10: M54.50 ICD-9: 724.210ctivePhysical deconditioningICD-10: R53.81 ICD-9: 799.310/ctiveAdvanced care planning - to document end of life laehjvodnzwZsmqonq47/24/2024ctiveAnnual physical examICD-10: Z00.00 ICD-9: V70.009ctiveHistory of anemia due to CKDICD-10: N18.9 ICD-9: 585.909ctiveHx of deep venous thrombosisICD-10: Z86.718 ICD-9: V12.5109ctiveLearning disabilityICD-10: F81.9 ICD-9: 315.209/ctiveReducible umbilical herniaICD-10: K42.9 ICD-9: 553.109/24/2024ActiveVitamin D deficiencyICD-10: E55.9 ICD-9: 268.909/4ActiveCallus of heelICD-10: L84 ICD-9: 99011/esolvedGout due to renal impairmentICD-10: M10.30 ICD-9: 274.1005esolvedHyperhidrosis of palmsICD-10: L74.512 ICD-9: 705.2105esolvedHyperlipidemia, unspecifiedICD-10: E78.5 ICD-9: 272.405esolvedOther manager long term care (current) drug therapyICD-10: [...] tagICD-10: L91.8 ICD-9: 701.904esolvedCoronary artery disease involving [place] coronary artery of [place] heart, angina presence unspecifiedICD-10: I25.10 ICD-9: 414.0102/4ActiveInappropriate sexual behaviorICD-10: Z72.89 ICD-9: 312.8910/ctivePre-op evaluationICD-10: Z01.818 ICD-9: V72.8403/ctiveSecondary hypertensionICD-10: I15.9 ICD-9: 405.9903/ctiveDepressionICD-10: F32.9 ICD-9: 39787/2ResolvedDVT (deep venous thrombosis)ICD-10: I82.409 ICD-9: 453.4009esolvedEncounter for immunizationICD-10: Z23 ICD-9: V03.892ResolvedLong term (current) use of insulinICD-10: Z79.4 02/10/2022esolvedMuscular [...] to other viral communicable diseasesICD-10: Z20.828 ICD-9: V01.7902/1857CrlhwzxdLhkbwxjyWwmcgwo98/28/2020ActiveDiabetes mellitus Type 7Twdtkuq46/28/2020ActiveAnemia in chronic kidney diseaseICD-10: D63.1 02/12/2020ResolvedHyperlipidemia, unspecifiedICD-10: E78.Resolved Medications Medication Codes Instructions Start Date Stop Date Status Fill Instructions Culturelle 10 billion cell capsule RxNorm: 828390 Take 1 Capsule(s) Oral QD 11/08/19 25 025 Inactive Culturelle 10 billion cell capsule RxNorm: 633384 Take 1 Capsule(s) Oral QD 11/08/19 25 026 Active hydrocodone 5 mg-acetaminophen 325 mg tablet RxNorm: 658747 Take 1 Tablet(s) Oral Q4H every four hours as needed for pain PRN for severe acute dental pain 10/21/19 25 025 Inactive penicillin V potassium 500 mg tablet RxNorm: 024103 Take 1 Tablet(s) Oral QID Take until dental appointment per ER recommendation 10/21/19 25 025 Inactive hydrocodone 5 mg-acetaminophen 325 mg tablet RxNorm: 986440 Take 1 Tablet(s) Oral Q4H every four hours as needed for pain PRN for severe acute dental pain 10/21/19 25 025 Inactive penicillin V potassium 500 mg tablet RxNorm: 160835 Take 1 Tablet(s) Oral QID Take until dental appointment per ER recommendation 10/21/19 25 025 Inactive potassium chloride ER 20 mEq tablet,extended release RxNorm: 139357 Take 2 Tablet(s) Oral TID (dx: hypokalemia) 09/14/19 25 026 Active potassium chloride ER 20 mEq tablet,extended release RxNorm: 587110 Take 2 Tablet(s) Oral TID (dx: hypokalemia) 09/14/19 25 025 Inactive loperamide 2 mg tablet RxNorm: 950670 Take 2 Tablet(s) Oral UD as directed [...] Date Active senna 8.6 mg tablet RxNorm: 276360 Take 1 Tablet(s) Oral QD as needed and 1 tab BID prn 09/06/19 No Stop Date Active cyclobenzaprine 10 mg tablet RxNorm: 278901 Take 1 Tablet(s) Oral QHS every night at bedtime as needed 09/06/19 No Stop Date Active loperamide 2 mg tablet RxNorm: 735961 Take 2 Tablet(s) Oral UD as directed as needed 2 tabs after first loose stool then 1 tab after each subsequent stool PRN Do not exceed 4 doses in 24 hours. Do not administer until after 3 loose stools. 09/06/19 026 Active pioglitazone 15 mg tablet RxNorm: 550492 Take 1 Tablet(s) Oral QD 09/06/19 No Stop Date Active loperamide 2 mg tablet RxNorm: 222441 Take 2 Tablet(s) Oral UD as directed as needed 2 tabs after first loose stool then 1 tab after each subsequent stool PRN Do not exceed 4 doses in 24 hours. Do not administer until after 3 loose stools. 09/06/19 25 025 Inactive pregabalin 100 mg capsule RxNorm: 596939 1 CAPSULE BY MOUTH EVERY MORNING (DX: NEUROPATHY) 08/23/19 25 025 Active FACILITY IS REQUESTING REFILL. PRIOR RX HAS BEEN EXHAUSTED. THANK YOU. pregabalin 150 mg capsule RxNorm: 111776 1 CAPSULE BY MOUTH AT BEDTIME (DX: NEUROPATHY) 08/21/19 25 025 Active FACILITY IS REQUESTING A REFILL OF THIS MEDICATION, THANK YOU! senna 8.6 mg tablet RxNorm: 849227 Take 1 Tablet(s) Oral QD as needed for constipation on day 2 of no bowel movement 08/09/19 25 025 Inactive Miralax 17 gram/dose oral powder RxNorm: 938267 Administer 17 Gram(s) Oral QD as needed for constipation on day 3 of no bowel movement 08/09/19 25 025 Inactive senna 8.6 mg tablet RxNorm: 412575 Take 1 Tablet(s) Oral QD as needed for constipation on day 2 of no bowel movement 08/09/19 25 025 Inactive Miralax 17 gram/dose oral powder RxNorm: 686157 Administer 17 Gram(s) Oral QD as needed for constipation on day 3 of no bowel movement 08/09/19 25 025 Inactive pregabalin 100 mg capsule RxNorm: 213500 Take 1 Capsule(s) Oral QAM every morning [...] (Concentrated) Insulin 500 unit/mL subcutaneous soln RxNorm: 925586 Inject 100 Unit(s) Subcutaneous AC before meals Three times daily before meals. 07/24/19 25 025 Inactive ammonium lactate 12 % topical cream RxNorm: 021952 Apply 1 Application Topical BID 07/20/19 25 No Stop Date Active ezetimibe 10 mg tablet RxNorm: 656819 Take 1 Tablet(s) Oral QD 07/18/19 25 No Stop Date Active senna 8.6 mg tablet RxNorm: 935544 Take 1 Tablet(s) Oral QD 07/18/19 25 025 Inactive metoprolol succinate ER 200 mg tablet,extended release 24 hr RxNorm: 969723 Take 1 Tablet(s) Oral QD 06/19/19 25 No Stop Date Active pantoprazole 40 mg tablet,delayed release RxNorm: 516028 Take 1 Tablet(s) Oral QAM every morning 06/19/19 25 No Stop Date Active hydralazine 50 mg tablet RxNorm: 453904 Take 1 Tablet(s) Oral QID 06/19/19 25 No Stop Date Active carbamazepine 200 mg tablet RxNorm: 623096 Take 1 Tablet(s) Oral BID 06/19/19 25 No Stop Date Active amlodipine 10 mg tablet RxNorm: 958472 Take 1 Tablet(s) Oral QD 06/19/19 25 No Stop Date Active Eliquis 5 mg tablet RxNorm: 4466110 Take 1 Tablet(s) Oral BID 06/19/19 25 No Stop Date Active pen needle, diabetic 30 gauge x 3/16 RxNorm: Use 1 6 times per day w/insulin 06/14/19 25 026 Active pen needle, diabetic 30 gauge x 3/16 RxNorm: Use 1 needle 6 times per day w/insulin 06/14/19 25 025 Inactive nystatin 100,000 unit/gram topical powder RxNorm: 424032 Apply 1 Application Topical BID as needed abdominal/breast/ groin folds 05/24/19 25 026 Active pregabalin 100 mg capsule RxNorm: 986723 Take 1 Capsule(s) Oral QAM every morning 05/22/19 025 Inactive nystatin 100,000 unit/gram topical powder RxNorm: 252908 Apply 1 Application Topical BID as needed abdominal/breast/ groin folds 04/11/20 24 024 Inactive chlorthalidone 25 mg tablet RxNorm: 991725 Take 1 Tablet(s) Oral QAM every morning 04/06/20 No Stop Date Active pregabalin 150 mg capsule RxNorm: 649629 Take 1 Capsule(s) Oral QHS every night at bedtime 03/31/20 024 Inactive Vascepa 1 gram capsule RxNorm: 7901199 Take 2 Capsule(s) Oral BID 03/30/20 24 025 Active rosuvastatin 40 mg tablet RxNorm: 664356 1 TAB ORALLY EVERY EVENING (DX:CORONARY ARTERY DISEASE) 03/28/20 No Stop Date Active venlafaxine ER 75 mg capsule,extended release 24 hr RxNorm: 612332 3 CAPS (225MG) ORALLY DAILY (DX: MOOD DISORDER) 03/28/20 No Stop Date Active pregabalin 100 mg capsule RxNorm: 676368 Take 1 Capsule(s) Oral QAM every morning 03/20/20 024 Inactive cholecalciferol (vitamin D3) 1,250 mcg (50,000 unit) capsule RxNorm: 654381 Take 1 Capsule(s) Oral QW once a [...] with any covered alternative test strip Tusharaglar ZaPen U-100 Insulin 100 unit/mL (3 mL) subcutaneous RxNorm: 9850747 Inject 40 Unit(s) Subcutaneous BID 03/07/20 025 Inactive Please dispense one month supply. Humulin R U-500 (Concentrated) Insulin 500 unit/mL subcutaneous soln RxNorm: 481939 Inject 100 Unit(s) Subcutaneous AC before meals [...] to be use with new Accu [place] meter 03/04/20 Inactive ok to substitute with any covered alternative test strip FreeStyle Chema 2 Sensor kit RxNorm: Use UD as directed 03/02/20 Inactive Pen Needle 30 gauge x 516 RxNorm: Pen(s) Use 1 needle as directed TID 10/17/20 24 10/17/2 024 Inactive nystatin 100,000 unit/gram topical powder RxNorm: 265763 Apply 1 Application Topical BID as needed [...] (Concentrated) Insulin 500 unit/mL subcutaneous soln RxNorm: 654819 Inject 100 Unit(s) Subcutaneous TID 02/17/20 24 024 Inactive Humulin R U-500 (Concentrated) Insulin 500 unit/mL subcutaneous soln RxNorm: 848907 Inject 100 Unit(s) Subcutaneous TID 02/10/20 24 024 Inactive Basaglar KwikPen U-100 Insulin 100 unit/mL (3 mL) subcutaneous RxNorm: 8860265 Inject 30 Unit(s) Subcutaneous BID 02/10/20 24 024 Inactive Please dispense one month supply. pregabalin 100 mg capsule RxNorm: 176166 Take 1 Capsule(s) Oral QAM every morning 02/07/20 24 024 Inactive isosorbide mononitrate ER 60 mg tablet,extended release 24 hr RxNorm: 214398 Take 1 Tablet(s) Oral QD 02/01/20 24 025 Active aripiprazole 15 mg tablet RxNorm: 358947 Take 1/2 Tablet(s) Oral QD 02/01/20 24 025 Active torsemide 20 mg tablet RxNorm: 908392 1 TAB ORALLY DAILY (DX: EDEMA) 01/27/20 No Stop Date Active potassium chloride ER 20 mEq tablet,extended release(part/cryst) RxNorm: 8112553 2 TABS (40MEQ) ORALLY TWICE DAILY (DX: HYPOKALEMIA) 01/27/20 24 Inactive cephalexin 500 mg capsule RxNorm: 443661 Take 1 Capsule(s) Oral QID 12/17/19 24 024 Inactive cephalexin 500 mg capsule RxNorm: 361473 Take 1 Capsule(s) Oral QID 12/17/19 24 Inactive acetaminophen 500 mg tablet RxNorm: 297793 (MAX APAP:4GM/24HR) Take 1 Tablet(s) Oral TID as needed for pain 12/10/19 24 Inactive torsemide 20 mg tablet RxNorm: 930067 Take 1 Tablet(s) Oral QD 10/26/19 24 Inactive potassium chloride ER 20 mEq tablet,extended release RxNorm: 19800522 Take 2 Tablet(s) Oral BID 10/26/19 24 Inactive torsemide 20 mg tablet RxNorm: 902179 Take 1 Tablet(s) Oral QD 10/26/19 24 025 Inactive potassium chloride ER 20 mEq tablet,extended release RxNorm: 19800522 Take 2 Tablet(s) Oral BID 10/26/19 24 Inactive Artificial Tears (PF) 0.1 %-0.3 % drops in a dropperette RxNorm: 487045 Apply 1-2 Drop(s) Both eyes BID as needed 09/28/19 24 Inactive erythromycin 5 mg/gram (0.5 %) eye ointment RxNorm: 717673 Apply 1 Application Both eyes QHS every night at bedtime Instill ~1 cm ribbon into affected eye 09/28/19 24 024 Inactive Artificial Tears (PF) 0.1 %-0.3 % drops in a dropperette RxNorm: 126395 Apply 1-2 Drop(s) Both eyes BID as needed 09/28/19 24 024 Inactive erythromycin 5 mg/gram (0.5 %) eye ointment RxNorm: 391583 Apply 1 Application Both eyes QHS every night at bedtime Instill ~1 cm ribbon into affected eye 09/28/19 24 024 Inactive acetaminophen 500 mg tablet RxNorm: 693409 (MAX APAP:4GM/24HR) Take 1 Tablet(s) Oral TID as needed for pain 09/24/19 24 024 Inactive carvedilol 25 mg tablet RxNorm: 846226 Take 1 Tablet(s) Oral QD 09/08/19 24 No Stop Date Active pregabalin 100 mg capsule RxNorm: 990376 Take 1 Capsule(s) Oral QAM every morning 09/07/19 24 024 Inactive bisacodyl 10 mg rectal suppository RxNorm: 478883 Insert 1 Suppository Rectal QD as needed 07/13/19 24 No Stop Date Active ketoconazole 2 % shampoo RxNorm: 232735 Apply 1 Application Topical UD as directed 07/13/19 24 No Stop Date Active Ozempic 1 mg/dose (4 mg/3 mL) subcutaneous pen injector RxNorm: 1936651 Inject 1 Milligram(s) Subcutaneous QW once a week 07/13/19 24 No Stop Date Active Guaifenesin AC 10 mg-100 mg/5 mL oral liquid RxNorm: 255400 Take 10 Milliliter(s) Oral Q4H every four hours as needed 07/13/19 24 No Stop Date Active hydrocortisone 2.5 % topical cream RxNorm: 547861 Apply 1 Application Topical BID as needed 07/13/19 24 No Stop Date Active rosuvastatin 40 mg tablet RxNorm: 919653 Take 1 Tablet(s) Oral QPM every evening 07/13/19 24 024 Inactive ezetimibe 10 mg tablet RxNorm: 081272 Take 1 Tablet(s) Oral QD 07/13/19 24 025 Inactive polyethylene glycol 3350 17 gram/dose oral powder RxNorm: 377151 Take 17 Gram(s) Oral BID as needed mix in 4-8ox water 07/13/19 24 025 Inactive aripiprazole 15 mg tablet RxNorm: 075990 Take 1/2 Tablet(s) Oral QD 07/13/19 24 024 Inactive isosorbide mononitrate ER 60 mg tablet,extended release 24 hr RxNorm: 773613 Take 1 Tablet(s) Oral QD 07/13/19 24 024 Inactive ammonium lactate 12 % topical cream RxNorm: 824807 Apply 1 Application Topical BID 07/13/19 24 025 Inactive rosuvastatin 20 mg sprinkle capsule RxNorm: 0666442 Take 1 Capsule(s) Oral QD 07/13/19 24 025 Inactive Vascepa 1 gram capsule RxNorm: 2508095 Take 2 Capsule(s) Oral BID 07/13/19 24 024 Inactive venlafaxine ER 75 mg capsule,extended release 24 hr RxNorm: 144273 Take 3 Capsule(s) Oral QD 07/13/19 24 024 Inactive Basaglar KwikPen U-100 Insulin 100 unit/mL (3 mL) subcutaneous RxNorm: 7775581 Inject 30U SubQ twice daily 07/07/19 24 024 Inactive Please dispense one month supply. Basaglar KwikPen U-100 Insulin 100 unit/mL (3 mL) subcutaneous RxNorm: 4196820 Inject 30U SubQ twice daily 07/07/19 24 024 Inactive Please dispense one month supply. pregabalin 150 mg capsule RxNorm: 289407 Take 1 Capsule(s) Oral QHS every night at bedtime 07/05/19 24 024 Inactive pregabalin 150 mg capsule RxNorm: 231831 Take 1 Capsule(s) Oral QHS every night at bedtime 07/05/19 24 024 Inactive polyethylene glycol 3350 17 gram/dose oral powder RxNorm: 021132 Take 1 Packet Oral QD as needed (1 packet = 17g) mix with 4-8oz of liquid 06/15/19 24 024 Inactive bisacodyl 10 mg rectal suppository RxNorm: 533941 Insert one suppository per rectum once daily as needed for constipation 06/15/19 24 024 Inactive bisacodyl 10 mg rectal suppository RxNorm: 690558 Insert one suppository per rectum once daily as needed for constipation 06/15/19 24 024 Inactive pregabalin 100 mg capsule RxNorm: 851276 Take 1 Capsule(s) Oral QAM every morning 12/05/05 23 024 Inactive Levemir FlexPen 100 unit/mL (3 mL) solution subcutaneous insulin pen RxNorm: 848062 Inject 30 Unit(s) Subcutaneous BID 04/27/20 024 Inactive rosuvastatin 40 mg tablet RxNorm: 906487 Take 1 Tablet(s) Oral QPM every evening 04/16/20 024 Inactive D/C rosuvastatin 20mg venlafaxine ER 75 mg capsule,extended release 24 hr RxNorm: 992332 Take 3 Capsule(s) Oral QD 04/14/20 023 Inactive pregabalin 100 mg capsule RxNorm: 881914 Take 1 Capsule(s) Oral QAM every morning [...] strip clotrimazole 1 % topical cream RxNorm: 563246 Take apply topically to abdominal folds twice daily for 14 days 03/12/20 024 Inactive Ozempic 1 mg/dose (4 mg/3 mL) subcutaneous pen injector RxNorm: 4000399 Inject 1 Milligram(s) Subcutaneous QW once a week 03/11/20 023 Inactive rosuvastatin 20 mg tablet RxNorm: 585834 Take 1 Tablet(s) Oral QD 02/26/20 23 023 Inactive d/c pravastatin 80mg Ozempic 1 mg/dose (4 mg/3 mL) subcutaneous pen injector RxNorm: 9184539 Inject 1 Milligram(s) Subcutaneous QW once a week 02/20/20 23 023 Inactive pregabalin 150 mg capsule RxNorm: 888556 Take 1 Capsule(s) Oral HS at bed time 02/19/20 23 023 Inactive pregabalin 100 mg capsule RxNorm: 470461 Take 1 Capsule(s) Oral QAM every morning 02/18/20 23 023 Inactive venlafaxine ER 75 mg capsule,extended release 24 hr RxNorm: 538637 Take 3 Capsule(s) Oral QD 02/04/20 23 023 Inactive FreeStyle Chema 2 Sensor kit RxNorm: use as directed 02/04/20 23 023 Inactive FreeStyle Chema 2 Sensor kit RxNorm: use as directed 02/04/20 23 024 Inactive fluconazole 150 mg tablet RxNorm: 394424 Take 1 Tablet(s) Oral on day 3 and on day 6 02/03/20 024 Inactive venlafaxine ER 150 mg capsule,extended release 24 hr RxNorm: 847243 Take 1 Capsule(s) Oral QD 02/03/20 23 023 Inactive chlorthalidone 25 mg tablet RxNorm: 765694 Take 1 Tablet(s) Oral QAM every morning 02/03/20 23 024 Inactive acetaminophen 500 mg tablet RxNorm: 474592 1 TABLET ORALLY 3 TIMES DAILY (MAX APAP:4GM/24HR) 12/15/19 23 023 Inactive potassium chloride ER 20 mEq tablet,extended release RxNorm: 152991 Take 1 Tablet(s) Oral BID 12/09/19 23 024 Inactive d/c 20mEq once daily (sent from hospital) clotrimazole 1 % topical cream RxNorm: 305221 apply 1g topically to top of feet and in between toes BID 12/09/19 23 025 Inactive nystatin 100,000 unit/gram topical powder RxNorm: 319561 APPLY TO AFFECTED AREAS TOPICALLY 2 TIMES DAILY 11/21/19 23 023 Inactive Nystop 100,000 unit/gram topical powder RxNorm: 720743 Apply to abd folds, under breasts and L side of groin Topical BID x 14 days, then BID PRN 11/20/19 23 023 Inactive dx: yeast dermatitis [place] Ultra Strength 4 %-30 %-10 % topical cream RxNorm: 995812 Apply 1 Gram(s) Topical QID PRN to feet and legs for neuropathic pain 11/11/19 024 Inactive clotrimazole 1 % topical cream RxNorm: 539446 Apply 1/2 Gram(s) Topical BID Apply to affected areas of groin, periarea, and abdominal topically 2 times daily 11/10/19 023 Inactive hydrocortisone 2.5 % topical cream RxNorm: 327469 Apply 1/2 Gram(s) Topical BID as needed 11/10/19 024 Inactive Levemir FlexPen 100 unit/mL (3 mL) solution subcutaneous insulin pen RxNorm: 115851 Inject 30 Unit(s) Subcutaneous BID 10/07/19 023 Inactive Humulin R U-500 (Concentrated) Insulin 500 unit/mL subcutaneous soln RxNorm: 147090 Inject 100 Unit(s) Subcutaneous TID 10/07/19 024 Inactive Ozempic 0.25 mg or 0.5 mg (2 mg/3 mL) subcutaneous pen injector RxNorm: 2353298 Inject 1/2 Milligram(s) Subcutaneous QW once a week 10/07/19 024 Inactive aripiprazole 15 mg tablet RxNorm: 247811 1/2 TAB (7.5MG) ORALLY DAILY (DX:MAJOR DEPRESSIVE DISORDER) 09/23/19 23 023 Inactive Accu-Chek Guide test strips RxNorm: Use 1 Test Strip QID 09/15/19 23 023 Inactive ok to substitute with any covered alternative test strip Lancets,Thin 28 gauge RxNorm: Use 1 as directed QID 09/15/19 23 023 Inactive torsemide 20 mg tablet RxNorm: 495587 Take 1 Tablet(s) Oral BID 09/09/19 024 Inactive d/c once daily dosing carvedilol 25 mg tablet RxNorm: 575706 Take 1 Tablet(s) Oral QD 08/25/19 024 Inactive pregabalin 150 mg capsule RxNorm: 755238 1 Capsule(s) Oral HS at bed time 08/18/19 023 Inactive pregabalin 100 mg capsule RxNorm: 521635 1 Capsule(s) Oral QAM every morning 08/18/19 23 023 Inactive carvedilol 25 mg tablet RxNorm: 350528 1 Tablet(s) Oral QD 07/28/19 23 023 Inactive lisinopril 20 mg tablet RxNorm: 685155 Give 1 Tablet(s) Oral QD 07/28/19 23 023 Inactive Lyrica 150 mg capsule RxNorm: 147480 Take 1 Capsule(s) Oral QHS every night at bedtime 07/19/19 023 Inactive d/c 100mg dose Diflucan 150 mg tablet RxNorm: 957676 Take 1 Tablet(s) Oral QD repeat on day 3 and 6 07/19/19 023 Inactive pregabalin 100 mg capsule RxNorm: 798185 Take 1 Capsule(s) Oral QAM every morning 07/19/19 023 Inactive gatifloxacin 0.5 % eye drops RxNorm: 626908 Instill 1 Drop(s) as directed TID Instill 1 drop in to affected eye(s) starting 1 day prior to surgery and continue until gone (do not exceed 4 weeks). 07/13/19 23 023 Inactive carvedilol 25 mg tablet RxNorm: 891053 2 Tablet(s) Oral BID 07/13/19 023 Inactive Humulin R Regular U-100 Insulin 100 unit/mL injection solution RxNorm: 021108 85 Unit(s) Injection TID 07/13/19 23 023 Inactive ketorolac 0.5 % eye drops RxNorm: 797042 Instill 1 Drop(s) as directed QID Instill 1 drop into affected eye(s) 4 times daily starting 1 day prior to surgery and continue until gone (do not exceed 4 weeks). 07/13/19 23 023 Inactive Diflucan 150 mg tablet RxNorm: 101840 Take 1 Tablet(s) Oral QD repeat on day 3 and 6 06/30/19 23 023 Inactive Accu-Chek Guide test strips RxNorm: Use 1 Test Strip QID Use 1 test strip to monitor blood glucose 4 times daily and as needed. Dx:E11.42. 06/23/19 23 023 Inactive ok to substitute with any covered alternative test strip dextromethorphan-gu aifenesin 10 mg-100 mg/5 mL oral liquid RxNorm: 972447 Take 10 Milliliter(s) Oral every 4 hours as needed for cough 06/19/19 023 Inactive dextromethorphan-gu aifenesin 10 mg-100 mg/5 mL oral liquid RxNorm: 596956 Take 10 Milliliter(s) Oral every 4 hours as needed for cough 06/19/19 023 Inactive Lyrica 150 mg capsule RxNorm: 465224 Take 1 Capsule(s) Oral QHS every night at bedtime 06/18/19 023 Inactive d/c 100mg dose aripiprazole 15 mg tablet RxNorm: 702675 1/2 TAB (7.5MG) ORALLY DAILY (DX:MAJOR DEPRESSIVE DISORDER) 06/05/19 023 Inactive pregabalin 100 mg capsule RxNorm: 183152 1 Capsule(s) Oral QAM every morning 06/02/19 023 Inactive Banophen 50 mg capsule RxNorm: 1730254 Take 1 Capsule(s) Oral Q6H every 6 hours as needed 05/19/19 23 No Stop Date Active Novolog Flexpen U-100 Insulin aspart 100 unit/mL (3 mL) subcutaneous RxNorm: 3754535 Inject 10 Unit(s) Subcutaneous QHS every night at bedtime with nighttime snack 04/08/20 022 Inactive Novolog Flexpen U-100 Insulin aspart 100 unit/mL (3 mL) subcutaneous RxNorm: 3382778 Inject 42 Unit(s) Subcutaneous TID in addition to sliding scale 04/08/20 022 Inactive d/c 36u albuterol sulfate HFA 90 mcg/actuation aerosol inhaler RxNorm: 6248765 Take 2 Puff(s) Inhalation Q4H every four hours as needed as needed for SOB, cough, or wheezing 04/07/20 030 Active Banophen 50 mg capsule RxNorm: 4307436 Take 1 Capsule(s) Oral Q6H every 6 hours as needed 04/06/20 023 Inactive diphenhydramine 50 mg tablet RxNorm: 4647592 Take 1 Tablet(s) Oral Q6H every 6 hours as needed 04/06/20 22 022 Inactive diphenhydramine 50 mg tablet RxNorm: 4721413 1 Tablet(s) Oral Q6H every 6 hours as needed 04/06/20 022 Inactive Abilify 15 mg tablet RxNorm: 673646 1/2 Tablet(s) Oral QD 03/10/20 023 Inactive Shingrix (PF) 50 mcg/0.5 mL intramuscular suspension, kit RxNorm: 6856825 Administer 1/2 Milliliter(s) Intramuscular QD one time shingrix step 2 ( step 1 given 11/04/21) WITH needle - Nursing please administer upon arrival and once administered post a bridge message with date of administration, net c developer, expiration date, and lot# so we can update [facility] 02/18/20 22 022 Inactive dispense with needle Shingrix (PF) 50 mcg/0.5 mL intramuscular suspension, kit RxNorm: 7178244 Administer 1/2 Milliliter(s) Intramuscular QD one time shingrix step 2 ( step 1 given 11/04/21) WITH needle - Nursing please administer upon arrival and once administered post a bridge message with date of administration, net c developer, expiration date, and lot# so we can update [facility] 02/18/20 22 022 Inactive dispense with needle Lyrica 100 mg capsule RxNorm: 152929 Take 1 Capsule(s) Oral QAM every morning 01/08/20 22 022 Inactive d/c 50mg dose acetaminophen 500 mg tablet RxNorm: 038564 Take 1 Tablet(s) Oral TID 01/08/20 22 022 Inactive d/c PRN order Lyrica 150 mg capsule RxNorm: 796664 Take 1 Capsule(s) Oral QHS every night at bedtime 01/08/20 22 023 Inactive d/c 100mg dose polyethylene glycol 3350 17 gram/dose oral powder RxNorm: 254339 Take 17=1 capful Gram(s) Oral QD mix with 4-8oz of liquid 01/08/20 22 025 Inactive take this in addition to BID prn order Abilify 5 mg tablet RxNorm: 227429 Take 1 Tablet(s) Oral QD take 1 tab po QD #30 refill 5 dx: MDD 12/12/19 22 022 Inactive Abilify 5 mg tablet RxNorm: 576098 Take 1 Tablet(s) Oral QD take 1 tab po QD #30 refill 5 dx: MDD 12/12/19 22 022 Inactive Novolog Flexpen U-100 Insulin aspart 100 unit/mL (3 mL) subcutaneous RxNorm: 1911691 Inject 42 Unit(s) Subcutaneous TID in addition to sliding scale 12/10/19 22 022 Inactive d/c 36u chlorthalidone 25 mg tablet RxNorm: 523347 Take 1 Tablet(s) Oral QAM every morning 12/10/19 22 023 Inactive pregabalin 50 mg capsule RxNorm: 515661 Take 1 Capsule(s) Oral QAM every morning 11/12/19 22 022 Inactive tetanus-diphtheria toxoids-Td 2 Lf unit-2 Lf unit/0.5 mL IM suspension RxNorm: 139 Take 0.5 Miscellaneous Intramuscular 11/12/19 22 022 Inactive need tdap - nursing to administer upon arrival pregabalin 50 mg capsule RxNorm: 341612 Take 1 Capsule(s) Oral QAM every morning 10/16/19 22 022 Inactive pregabalin 50 mg capsule RxNorm: 165262 Take 1 Capsule(s) Oral QAM every morning 10/16/19 22 022 Inactive pregabalin 50 mg capsule RxNorm: 567433 1 Capsule(s) Oral QAM every morning 10/15/19 22 022 Inactive Shingrix (PF) 50 mcg/0.5 mL intramuscular suspension, kit RxNorm: 3297861 Administer 1/2 Milliliter(s) Intramuscular one time Nursing please administer upon arrival and once administered post a bridge message with date of administration, net c developer, expiration date, and lot# so we can update [facility]. 10/09/19 22 022 Inactive shingrix step 1 Shingrix (PF) 50 mcg/0.5 mL intramuscular suspension, kit RxNorm: 0370065 Administer 1/2 Milliliter(s) Intramuscular one time Nursing please administer upon arrival and once administered post a bridge message with date of administration, net c developer, expiration date, and lot# so we [...] aspart 100 unit/mL (3 mL) subcutaneous RxNorm: 1543126 Inject 10 Unit(s) Subcutaneous QHS every night at bedtime with nighttime snack 10/08/19 22 022 Inactive Shingrix (PF) 50 mcg/0.5 mL intramuscular suspension, kit RxNorm: 8311347 ADMINISTER 2-DOSE SERIES PER CDC GUIDELINES 10/08/19 22 022 Active Shingrix (PF) 50 mcg/0.5 mL intramuscular suspension, kit RxNorm: 1723598 ADMINISTER 2-DOSE SERIES PER CDC GUIDELINES 10/08/19 22 022 Inactive Novolog Flexpen U-100 Insulin aspart 100 unit/mL (3 mL) subcutaneous RxNorm: 8436914 Inject 36 Unit(s) Subcutaneous TID in addition to sliding scale 10/08/19 22 022 Inactive cholecalciferol (vitamin D3) 1,250 mcg (50,000 unit) capsule RxNorm: 871932 Take 1 Capsule(s) Oral QW once a week 10/08/19 22 024 Inactive Novofine Autocover 30 gauge x 1/3 needle RxNorm: Use 1 Miscellaneous UD as directed Use 1 needle as directed to administer insulin 5 times a day Dx:E11.42. 10/03/19 22 Inactive ok to substitute with any covered alternative pen needle benzoyl peroxide 10 % topical cleanser RxNorm: 130110 Apply 1 Application Topical QD apply to face, wash rinse and dry once daily (may change to QOD if drying) 08/19/19 22 022 Inactive (%covered by insurance) #60ml refill 11 dx: acne benzoyl peroxide 10 % topical cleanser RxNorm: 367230 Apply 1 Application Topical QD apply to face, wash rinse and dry once daily (may change to QOD if drying) 08/19/19 22 022 Inactive (%covered by insurance) #60ml refill 11 dx: acne benzoyl peroxide 10 % topical cleanser RxNorm: 611573 Apply 1 Application Topical QD apply to face, wash rinse and dry once daily (may change to QOD if drying) 08/19/19 022 Inactive (%covered by insurance) #60ml refill 11 dx: acne Lyrica 50 mg capsule RxNorm: 030709 Take 1 Capsule(s) Oral QAM every morning Take 1 capsule by mouth once daily 08/19/19 022 Inactive benzoyl peroxide 10 % topical cleanser RxNorm: 852173 Apply 1 Application Topical QD apply to face, wash rinse and dry once daily (may change to QOD if drying) 08/19/19 22 022 Inactive (%covered by insurance) #60ml refill 11 dx: acne Lyrica 100 mg capsule RxNorm: 417480 Take 1 Capsule(s) Oral QHS every night at bedtime Take 1 capsule by mouth once daily at bedtime 08/19/19 22 022 Inactive Lyrica 100 mg capsule RxNorm: 515102 Take 1 Capsule(s) Oral QHS every night at bedtime Take 1 capsule by mouth once daily at bedtime 08/16/19 22 Inactive Lyrica 50 mg capsule RxNorm: 726756 Take 1 Capsule(s) Oral QAM every morning Take 1 capsule by mouth once daily 08/16/19 22 022 Inactive Levemir FlexTouch U-100 Insulin 100 unit/mL (3 mL) subcutaneous pen RxNorm: 556555 Inject 86 Unit(s) Subcutaneous BID 08/05/19 22 022 Inactive d/c 83units BID Lyrica 100 mg capsule RxNorm: 940622 Take 1 Capsule(s) Oral QHS every night at bedtime Take 1 capsule by mouth once daily at bedtime 07/14/19 22 022 Inactive Lyrica 50 mg capsule RxNorm: 212632 Take 1 Capsule(s) Oral QAM every morning Take 1 capsule by mouth once daily 07/14/19 22 022 Inactive Levemir FlexTouch U-100 Insulin 100 unit/mL (3 mL) subcutaneous pen RxNorm: 644094 Inject 83 Unit(s) Subcutaneous BID 07/08/19 22 [...] test strip hydralazine 50 mg tablet RxNorm: 453237 Take 1 Tablet(s) Oral QID 05/05/20 21 022 Inactive venlafaxine ER 225 mg tablet,extended release 24 hr RxNorm: 905808 Take 1 Tablet(s) Oral QD 05/05/20 021 Inactive venlafaxine ER 225 mg tablet,extended release 24 hr RxNorm: 191295 Take 1 Tablet(s) Oral QD 05/05/20 022 Inactive isosorbide mononitrate ER 30 mg tablet,extended release 24 hr RxNorm: 263243 Take 1 Tablet(s) Oral QD 05/05/20 024 Inactive hydralazine 50 mg tablet RxNorm: 223337 Take 1 Tablet(s) Oral QID 05/05/20 Inactive aspirin 81 mg tablet,delayed release RxNorm: 184752 Take 1 Tablet(s) Oral QD 03/31/20 022 Inactive Vitamin D2 1,250 mcg (50,000 unit) capsule RxNorm: 8206103 Take 1 Capsule(s) Oral QW once a week x 12 weeks 03/31/20 022 Inactive Vitamin D2 1,250 mcg (50,000 unit) capsule RxNorm: 9928206 Take 1 Capsule(s) Oral QW once a week 03/31/20 021 Inactive Zetia 10 mg tablet RxNorm: 429476 Take 1 Tablet(s) Oral QD 03/31/20 024 Inactive Zetia 10 mg tablet RxNorm: 592991 Take 1 Tablet(s) Oral QD 03/31/20 021 Inactive hydralazine 25 mg tablet RxNorm: 219995 Take 1 Tablet(s) Oral QID 03/31/20 21 021 Inactive hydralazine 25 mg tablet RxNorm: 000095 Take 1 Tablet(s) Oral QID 03/31/20 021 Inactive hydralazine 10 mg tablet RxNorm: 988894 Take 1 Tablet(s) Oral QID 03/03/20 021 Inactive cephalexin 500 mg tablet RxNorm: 351181 Take 1 Tablet(s) Oral QID 02/27/20 021 Inactive cephalexin 500 mg tablet RxNorm: 213173 Take 1 Tablet(s) Oral QID 02/27/20 021 Inactive lisinopril 40 mg tablet RxNorm: 432201 Take 1 Tablet(s) Oral QD 02/11/20 023 Inactive Eliquis 5 mg tablet RxNorm: 5841390 Take 1 Tablet(s) Oral BID 01/05/20 21 025 Inactive Eliquis 5 mg tablet RxNorm: 6483967 Take 2 Tablet(s) Oral QD 01/01/20 21 021 Inactive Lyrica 50 mg capsule RxNorm: 325090 Take 1 Capsule(s) Oral QAM every morning 12/24/19 021 Inactive Lyrica 100 mg capsule RxNorm: 788158 Take 1 Capsule(s) Oral QHS every night at bedtime 12/24/19 021 Inactive clotrimazole 1 % topical cream RxNorm: 802667 Apply to right foot and toes Topical BID 12/04/19 21 023 Inactive metoprolol succinate ER 200 mg tablet,extended release 24 hr RxNorm: 852983 Take 1 Tablet(s) Oral QD 12/04/19 023 Inactive ciprofloxacin 500 mg tablet RxNorm: 156880 Take 1 Tablet(s) Oral QD 11/30/19 021 Inactive DX ofloxacin otic drops Accu-Chek Guide test strips RxNorm: USE 1 TO CHECK GLUCOSE 4 TIMES DAILY AND NEEDED 11/15/19 21 023 Inactive Blood Glucose Test strips RxNorm: Use 1 Test Strip QID at PRN 11/05/19 21 023 Inactive E11.42 lisinopril 30 mg tablet RxNorm: 453235 Take 1 Tablet(s) Oral QD 10/30/19 21 021 Inactive lisinopril 20 mg tablet RxNorm: 689052 Take 1 Tablet(s) Oral QD 10/23/19 21 021 Inactive lisinopril 20 mg tablet RxNorm: 835058 Take 1 Tablet(s) Oral QD 10/23/19 21 021 Inactive lisinopril 10 mg tablet RxNorm: 093806 Take 1 Tablet(s) Oral QD 10/02/19 21 021 Inactive icosapent ethyl 1 gram capsule RxNorm: 0752572 Take 2 Capsule(s) (2 gm) Oral BID with meals 09/12/19 21 024 Inactive Okay to dispense one 2gm tab if you have that available. icosapent ethyl 1 gram capsule RxNorm: 4125672 Take 2 Capsule(s) Oral BID 09/12/19 021 Inactive Okay to dispense one 2gm tab if you have that available. amlodipine 10 mg tablet RxNorm: 998456 Take 1 Tablet(s) Oral QD 09/04/19 21 021 Inactive aspirin 81 mg tablet,delayed release RxNorm: 688980 Take 1 Tablet(s) Oral QD 09/04/19 21 021 Inactive Levemir FlexTouch U-100 Insulin 100 unit/mL (3 mL) subcutaneous pen RxNorm: 603148 Inject 150 Unit(s) Subcutaneous BID 09/04/19 21 022 Inactive venlafaxine ER 150 mg tablet,extended release 24 hr RxNorm: 303503 Take 1 Tablet(s) Oral QD 09/04/19 21 021 Inactive clotrimazole-betame thasone 1 %-0.05 % topical cream RxNorm: 379566 Apply to rash on red area on left abdomen/chest Topical BID 08/10/19 21 021 Inactive amlodipine 5 mg tablet RxNorm: 017553 Take 1 Tablet(s) Oral QD 07/31/19 21 021 Inactive cephalexin 500 mg tablet RxNorm: 767155 Take 1 Tablet(s) Oral BID BID - Twice Daily 07/31/19 21 021 Inactive Start 08/01/20 pantoprazole 40 mg tablet,delayed release RxNorm: 448425 Take 1 Tablet(s) Oral QAM every morning 07/08/19 21 025 Inactive clopidogrel 75 mg tablet RxNorm: 114511 Take 1 Tablet(s) Oral QD 07/08/19 21 021 Inactive Blood Glucose Test strips RxNorm: Use 1 Test Strip QID at PRN 07/08/19 21 021 Inactive E11.42 senna 8.6 mg tablet RxNorm: 719801 Take 1 Tablet(s) Oral QD 07/08/19 21 025 Inactive Novolog Flexpen U-100 Insulin aspart 100 unit/mL (3 mL) subcutaneous RxNorm: 9738419 Administer per sliding scale Milliliter(s) Subcutaneous TID 151-200: 10 u; 201-250: 20 u; 251-300: 30 u; 301-350: 40 u; 351-400: 50 u. 07/08/19 21 022 Inactive lisinopril 5 mg tablet RxNorm: 454929 Take 1 Tablet(s) Oral QD 07/08/19 021 Inactive Novolog Flexpen U-100 Insulin aspart 100 unit/mL (3 mL) subcutaneous RxNorm: 2115836 Inject 85 Unit(s) Subcutaneous TID 07/08/19 022 Inactive pravastatin 80 mg tablet RxNorm: 638036 Take 1 Tablet(s) Oral QHS every night at bedtime 07/08/19 023 Inactive clotrimazole 1 % topical cream RxNorm: 938458 Apply to bilateral groin areas Topical BID 07/08/19 21 022 Inactive metoprolol succinate ER 200 mg tablet,extended release 24 hr RxNorm: 048405 Take 1 Tablet(s) Oral QD 07/08/19 21 021 Inactive Vitamin D3 25 mcg (1,000 unit) tablet RxNorm: 746022 Take 1 Tablet(s) Oral QD 07/08/19 21 021 Inactive isosorbide dinitrate 30 mg tablet RxNorm: 264223 Take 1 Tablet(s) Oral QD 07/08/19 021 Inactive carbamazepine 200 mg tablet RxNorm: 052366 Take 1 Tablet(s) Oral BID 07/08/19 21 025 Inactive Levemir FlexTouch U-100 Insulin 100 unit/mL (3 mL) subcutaneous pen RxNorm: 431468 Inject 140 Unit(s) Subcutaneous BID 07/08/19 021 Inactive torsemide 20 mg tablet RxNorm: 839111 Take 1 Tablet(s) Oral QD 07/08/19 023 Inactive venlafaxine 75 mg tablet RxNorm: 549980 Take 1 Tablet(s) Oral QD 07/08/19 021 Inactive acetaminophen 500 mg tablet RxNorm: 152177 Take 1 Tablet(s) Oral TID as needed for headache 06/18/19 021 Inactive acetaminophen 500 mg tablet RxNorm: 490002 Take 1 Tablet(s) Oral TID as needed for headache 06/18/19 021 Inactive Lyrica 100 mg capsule RxNorm: 950566 Take 1 Capsule(s) Oral QHS every night at bedtime 06/11/19 021 Inactive Lyrica 50 mg capsule RxNorm: 858235 Take 1 Capsule(s) Oral QAM every morning 06/10/19 21 021 Inactive hydrocortisone 2.5 % topical cream RxNorm: 422221 Apply to bilateral groin creases Topical BID 05/15/20 20 021 Inactive clotrimazole 1 % topical cream RxNorm: 134175 Apply to bilateral groin areas Topical BID 05/15/20 20 021 Inactive Lyrica 50 mg capsule RxNorm: 255427 Take 1 Capsule(s) Oral QAM every morning 05/14/20 20 020 Inactive Lyrica 100 mg capsule RxNorm: 782216 Take 1 Capsule(s) Oral QHS every night [...] Inactive Nystop 100,000 unit/gram topical powder RxNorm: 423468 Apply to abd folds, under breasts and L side of groin Topical BID x 14 days, then BID PRN 04/08/20 20 Inactive dx: yeast dermatitis Lyrica 100 mg capsule RxNorm: 825930 Take 1 Capsule(s) Oral QHS every night at bedtime 03/13/20 20 Inactive Lyrica 50 mg capsule RxNorm: 147633 Take 1 Capsule(s) Oral QAM every morning 03/13/20 20 Inactive ketoconazole 2 % shampoo RxNorm: 371484 Apply Topical two times a week with showers 03/11/20 20 024 Inactive cholecalciferol (vitamin D3) 50 mcg (2,000 unit) tablet RxNorm: 327867 Take 1 Tablet(s) Oral QD 03/11/20 20 021 Inactive Zetia 10 mg tablet RxNorm: 842312 Take 1 Tablet(s) Oral QD 03/07/20 20 021 Inactive Zetia 10 mg tablet RxNorm: 033088 Take 1 Tablet(s) Oral QD 03/07/20 20 020 Inactive Lyrica 50 mg capsule RxNorm: 181718 Take 1 Capsule(s) Oral QAM every morning 02/15/20 20 020 Inactive Lyrica 100 mg capsule RxNorm: 830209 Take 1 Capsule(s) Oral QHS every night at bedtime 02/15/20 020 Inactive Lyrica 100 mg capsule RxNorm: 006094 Take 1 Capsule(s) Oral QHS every night at bedtime 02/15/20 020 Inactive Lyrica 50 mg capsule RxNorm: 551274 Take 1 Capsule(s) Oral QAM every morning 02/15/20 20 020 Inactive venlafaxine ER 75 mg capsule,extended release 24 hr RxNorm: 954264 Take 3 Capsule(s) Oral QD 06/12/19 023 Inactive polyethylene glycol 3350 17 gram/dose oral powder RxNorm: 991171 Take 17=1 capful Gram(s) Oral BID as needed mix with 4-8oz of liquid 06/12/19 024 Inactive icosapent ethyl 1 gram capsule RxNorm: 2921534 Take 2 Capsule(s) (2 gm) Oral BID with meals 10/07/19 023 Inactive Okay to dispense one 2gm tab if you have that available. Levemir FlexTouch U-100 Insulin 100 unit/mL (3 mL) subcutaneous pen RxNorm: 520630 Inject 80 Unit(s) Subcutaneous BID 07/14/19 23 023 Inactive metoprolol succinate ER 200 mg tablet,extended release 24 hr RxNorm: 579821 Take 1 Tablet(s) Oral QD 08/12/19 23 025 Inactive loperamide 2 mg capsule RxNorm: 416820 Take 1 Capsule(s) Oral QID as needed 09/06/19 025 Inactive hydralazine 50 mg tablet RxNorm: 128499 Take 1 Tablet(s) Oral QID 08/12/19 025 Inactive Soft Touch Lancets RxNorm: miscellaneous 03/04/20 24 025 Inactive Novolog Flexpen U-100 Insulin aspart 100 unit/mL (3 mL) subcutaneous RxNorm: 2184040 Insert 30 Unit(s) Subcutaneous TID with meals [...] [facility] [address] [facility] [id number] [place]ReferralRecords requested X210/20/2024Referral: [facility]Endocrinology WPtel: [address] [place] [address] 3 [id number] USReferralNo Records [id number]/24/2025Referral: [facility] WPtel: [address] [id number] USReferralRecords [id number]/08/2023Referral: [facility] WPtel: [address] [id number] MEQpwhnknzJbgidtzpn71/12/2022Referral: General CardiologyReferralCompleted 1Referral: General PsychologistReferralClosedReferral: General PsychiatristReferralPatient/Family [...] Sister Jyotsna involved in his care cell# [phone] Guardian: Giulia (tapan met in person 09/01/21), [...] appointment 05.26.2024 with Jessa Webster MD at [facility]. Start Pioglitazone 15 mg QD. Stop Basaglar insulin. Increase Ozempic 2 mg once wkly. Continue Humalin R U-500 100 units with meals TID. FOLLOW UP 2 MONTHS. If BG >400 add 50 units to next scheduled dose of Humalin R U 500 insulin 06/12/2024
--- OUTSIDE RECORDS SUMMARY | 2024-11-10 21:05 | XMS_ITS | CCD ---
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 Unknown No [...] Unknown Detention 09/03/[address]: 437091716 No Alcohol Consum ption 09/02/2020 Allergies, Adverse Reactions, Alerts Substance Reaction Codes Entered Date Inactivated Date Status * NO KNOWN FOOD ALLERGIES Ctljxha2607/13/2023No Inactive DateActiveLISINOPRILRxNorm: 9643184No Inactive DateActiveMetformin VLyTebsyrd68/28/2020No Inactive DateActive* NO KNOWN ENVIRONMENTAL MZRRFSHPFSleknio62/27/2024No Inactive DateActive Problems Condition Codes Effective Dates Condition St atus Constipation by delayed colonic transit ICD-10: K59.01 ICD-9: 564.01065ActiveHypokalemiaICD-10: E87.6 ICD-9: 276.806/5ActiveLoose stoolsICD-10: R19.5 ICD-9: 787.7065ActiveParaparesis of both lower limbsICD-10: G82.20 ICD-9: 344.106/5ActiveSeizure disorderICD-10: G40.909 ICD-9: 345.90065ActiveType 2 diabetes mellitus with diabetic polyneuropathy, with long-term current use of insulinICD-10: E11.42 ICD-9: 250.6006/5ActiveAmputated toe of right footICD-10: S98.131A ICD-9: 895.0055ActiveHypercoagulable stateICD-10: D68.59 ICD-9: 289.81055ActiveLower extremity edemaICD-10: R60.0 ICD-9: 782.305/5ActiveMajor depression, recurrentICD-10: F33.9 ICD-9: 296.3005/5ActiveOnychogryposisICD-10: L60.2 ICD-9: 703.8055ActivePulmonary noduleSNOMED CT: 619747847 ICD-10: R91.1 ICD-9: 793.11055ActiveRecurrent major depressive disorder, in partial remissionICD-10: F33.41 ICD-9: 296.35055ActiveStage 2 chronic 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ICD-10: E11.22 ICD-9: 250.4005/5ActivePressure ulcer of left calf, unstageableICD-10: L89.890 ICD-9: 707.0905/ResolvedBody mass index [BMI] 60.0-69.9, adultSNOMED CT: 565715572 ICD-10: Z68.44 ICD-9: V85.4403/5ActiveMixed incontinenceSNOMED CT: 21623354 ICD-10: N39.46 ICD-9: 788.3303/5ActiveDiabetic neuropathy associated with type 2 diabetes mellitusICD-10: E11.40 ICD-9: 250.6002/5ActiveHemorrhoidsICD-10: K64.9 ICD-9: 455.6025ActivePVD (peripheral vascular disease)ICD-10: I73.9 ICD-9: 443.9025ActiveCandidal intertrigoICD-10: B37.2 ICD-9: 112.301/5ActiveHyperlipidemia associated with type 2 diabetes mellitusICD-10: E11.69 ICD-9: 250.8001/5ActiveHypertensive heart disease without heart failure ICD-10: I11.9 ICD-9: 402.90015ActiveAdvance care planningICD-10: Z71.89 ICD-9: V65.4912/4ActiveLow back painICD-10: M54.50 ICD-9: 724.210/4ActivePhysical deconditioningICD-10: R53.81 ICD-9: 799.310/ctiveAdvanced care planning - to document end of life cxxeznpsyduGqhuukl40/24/2024ctiveAnnual physical examICD-10: Z00.00 ICD-9: V70.009ctiveHistory of anemia due to CKDICD-10: N18.9 ICD-9: 585.909/ctiveHx of deep venous thrombosisICD-10: Z86.718 ICD-9: V12.5109/ctiveLearning disabilityICD-10: F81.9 ICD-9: 315.209/ctiveReducible umbilical herniaICD-10: K42.9 ICD-9: 553.109/ctiveVitamin D deficiencyICD-10: E55.9 ICD-9: 268.909/ctiveCallus of heelICD-10: L84 ICD-9: 79935/esolvedGout due to renal impairmentICD-10: M10.30 ICD-9: 274.1005esolvedHyperhidrosis of palmsICD-10: L74.512 ICD-9: 705.2105esolvedHyperlipidemia, unspecifiedICD-10: E78.5 ICD-9: 272.405esolvedOther petroleum terminal plant operator (current) drug therapyICD-10: Z79.899 ICD-9: V58.6905esolvedPain [...] breathICD-10: R06.02 ICD-9: 786.0504/esolvedSkin tagICD-10: L91.8 ICD-9: 701.904/4ResolvedCoronary artery disease involving [place] coronary artery of [place] heart, angina presence unspecifiedICD-10: I25.10 ICD-9: 414.0102/4ActiveInappropriate sexual behaviorICD-10: Z72.89 ICD-9: 312.8910/ctivePre-op evaluationICD-10: Z01.818 ICD-9: V72.8403/ctiveSecondary hypertensionICD-10: I15.9 ICD-9: 405.9903/ctiveDepressionICD-10: F32.9 ICD-9: 43744/esolvedDVT (deep venous thrombosis)ICD-10: I82.409 ICD-9: 453.4009/esolvedEncounter for immunizationICD-10: Z23 ICD-9: V03.8902/10/2022esolvedLong term (current) use of insulinICD-10: Z79.4 02/10/2022esolvedMuscular [...] to other viral communicable diseasesICD-10: Z20.828 ICD-9: V01.7902/6857KanfqufvSafekhftNxqgsrq99/28/2020ActiveDiabetes mellitus Type 5Rwbrvlh90/28/2020ActiveAnemia in chronic kidney diseaseICD-10: D63.1 02/12/2020ResolvedHyperlipidemia, unspecifiedICD-10: E78.509Resolved Medications Medication Codes Instructions Start Date Stop Date Status Fill Instructions Culturelle 10 billion cell capsule RxNorm: 789286 Take 1 Capsule(s) Oral QD 11/08/19 25 025 Inactive Culturelle 10 billion cell capsule RxNorm: 529223 Take 1 Capsule(s) Oral QD 11/08/19 25 026 Active hydrocodone 5 mg-acetaminophen 325 mg tablet RxNorm: 329239 Take 1 Tablet(s) Oral Q4H every four hours as needed for pain PRN for severe acute dental pain 10/21/19 25 025 Inactive penicillin V potassium 500 mg tablet RxNorm: 901701 Take 1 Tablet(s) Oral QID Take until dental appointment per ER recommendation 10/21/19 25 025 Inactive hydrocodone 5 mg-acetaminophen 325 mg tablet RxNorm: 582290 Take 1 Tablet(s) Oral Q4H every four hours as needed for pain PRN for severe acute dental pain 10/21/19 25 025 Inactive penicillin V potassium 500 mg tablet RxNorm: 659731 Take 1 Tablet(s) Oral QID Take until dental appointment per ER recommendation 10/21/19 25 025 Inactive potassium chloride ER 20 mEq tablet,extended release RxNorm: 587825 Take 2 Tablet(s) Oral TID (dx: hypokalemia) 09/14/19 25 026 Active potassium chloride ER 20 mEq tablet,extended release RxNorm: 063783 Take 2 Tablet(s) Oral TID (dx: hypokalemia) 09/14/19 25 025 Inactive loperamide 2 mg tablet RxNorm: 991531 Take 2 Tablet(s) Oral UD as directed [...] Date Active senna 8.6 mg tablet RxNorm: 091621 Take 1 Tablet(s) Oral QD as needed and 1 tab BID prn 09/06/19 No Stop Date Active cyclobenzaprine 10 mg tablet RxNorm: 747384 Take 1 Tablet(s) Oral QHS every night at bedtime as needed 09/06/19 No Stop Date Active loperamide 2 mg tablet RxNorm: 589983 Take 2 Tablet(s) Oral UD as directed as needed 2 tabs after first loose stool then 1 tab after each subsequent stool PRN Do not exceed 4 doses in 24 hours. Do not administer until after 3 loose stools. 09/06/19 026 Active pioglitazone 15 mg tablet RxNorm: 062021 Take 1 Tablet(s) Oral QD 09/06/19 No Stop Date Active loperamide 2 mg tablet RxNorm: 979649 Take 2 Tablet(s) Oral UD as directed as needed 2 tabs after first loose stool then 1 tab after each subsequent stool PRN Do not exceed 4 doses in 24 hours. Do not administer until after 3 loose stools. 09/06/19 025 Inactive pregabalin 100 mg capsule RxNorm: 015513 1 CAPSULE BY MOUTH EVERY MORNING (DX: NEUROPATHY) 08/23/19 25 025 Active FACILITY IS REQUESTING REFILL. PRIOR RX HAS BEEN EXHAUSTED. THANK YOU. pregabalin 150 mg capsule RxNorm: 956347 1 CAPSULE BY MOUTH AT BEDTIME (DX: NEUROPATHY) 08/21/19 25 025 Active FACILITY IS REQUESTING A REFILL OF THIS MEDICATION, THANK YOU! senna 8.6 mg tablet RxNorm: 838874 Take 1 Tablet(s) Oral QD as needed for constipation on day 2 of no bowel movement 08/09/19 25 025 Inactive Miralax 17 gram/dose oral powder RxNorm: 501349 Administer 17 Gram(s) Oral QD as needed for constipation on day 3 of no bowel movement 08/09/19 25 025 Inactive senna 8.6 mg tablet RxNorm: 192482 Take 1 Tablet(s) Oral QD as needed for constipation on day 2 of no bowel movement 08/09/19 25 Inactive Miralax 17 gram/dose oral powder RxNorm: 743217 Administer 17 Gram(s) Oral QD as needed for constipation on day 3 of no bowel movement 08/09/19 25 Inactive pregabalin 100 mg capsule RxNorm: 956749 Take 1 Capsule(s) Oral QAM every morning [...] (Concentrated) Insulin 500 unit/mL subcutaneous soln RxNorm: 844980 Inject 100 Unit(s) Subcutaneous AC before meals Three times daily before meals. 07/24/19 25 025 Inactive ammonium lactate 12 % topical cream RxNorm: 564968 Apply 1 Application Topical BID 07/20/19 No Stop Date Active ezetimibe 10 mg tablet RxNorm: 170678 Take 1 Tablet(s) Oral QD 07/18/19 No Stop Date Active senna 8.6 mg tablet RxNorm: 031223 Take 1 Tablet(s) Oral QD 07/18/19 25 025 Inactive metoprolol succinate ER 200 mg tablet,extended release 24 hr RxNorm: 603120 Take 1 Tablet(s) Oral QD 06/19/19 No Stop Date Active pantoprazole 40 mg tablet,delayed release RxNorm: 002473 Take 1 Tablet(s) Oral QAM every morning 06/19/19 25 No Stop Date Active hydralazine 50 mg tablet RxNorm: 718314 Take 1 Tablet(s) Oral QID 06/19/19 25 No Stop Date Active carbamazepine 200 mg tablet RxNorm: 790790 Take 1 Tablet(s) Oral BID 06/19/19 25 No Stop Date Active amlodipine 10 mg tablet RxNorm: 888869 Take 1 Tablet(s) Oral QD 06/19/19 25 No Stop Date Active Eliquis 5 mg tablet RxNorm: 8901868 Take 1 Tablet(s) Oral BID 06/19/19 25 No Stop Date Active pen needle, diabetic 30 gauge x 3/16 RxNorm: Use 1 6 times per day w/insulin 06/14/19 25 026 Active pen needle, diabetic 30 gauge x 3/16 RxNorm: Use 1 needle 6 times per day w/insulin 06/14/19 25 025 Inactive nystatin 100,000 unit/gram topical powder RxNorm: 234307 Apply 1 Application Topical BID as needed abdominal/breast/ groin folds 05/24/19 25 026 Active pregabalin 100 mg capsule RxNorm: 617284 Take 1 Capsule(s) Oral QAM every morning 05/22/19 25 025 Inactive nystatin 100,000 unit/gram topical powder RxNorm: 861608 Apply 1 Application Topical BID as needed abdominal/breast/ groin folds 04/11/20 24 024 Inactive chlorthalidone 25 mg tablet RxNorm: 695677 Take 1 Tablet(s) Oral QAM every morning 04/06/20 24 No Stop Date Active pregabalin 150 mg capsule RxNorm: 430351 Take 1 Capsule(s) Oral QHS every night at bedtime 03/31/20 24 024 Inactive Vascepa 1 gram capsule RxNorm: 4018940 Take 2 Capsule(s) Oral BID 03/30/20 24 025 Active rosuvastatin 40 mg tablet RxNorm: 856239 1 TAB ORALLY EVERY EVENING (DX:CORONARY ARTERY DISEASE) 03/28/20 24 No Stop Date Active venlafaxine ER 75 mg capsule,extended release 24 hr RxNorm: 131237 3 CAPS (225MG) ORALLY DAILY (DX: MOOD DISORDER) 03/28/20 24 No Stop Date Active pregabalin 100 mg capsule RxNorm: 674449 Take 1 Capsule(s) Oral QAM every morning 03/20/20 24 024 Inactive cholecalciferol (vitamin D3) 1,250 mcg (50,000 unit) capsule RxNorm: 004508 Take 1 Capsule(s) Oral QW once a [...] Insulin 100 unit/mL (3 mL) subcutaneous RxNorm: 1308484 Inject 40 Unit(s) Subcutaneous BID 03/07/20 Inactive Please dispense one month supply. Humulin R U-500 (Concentrated) Insulin 500 unit/mL subcutaneous soln RxNorm: 898208 Inject 100 Unit(s) Subcutaneous AC before meals [...] PRN) to be use with new Accu Nu Mine meter 03/04/20 Inactive ok to substitute with any covered alternative test strip FreeStyle Chema 2 Sensor kit RxNorm: Use UD as directed 03/02/20 24 024 Inactive Pen Needle 30 gauge x 5/16 RxNorm: Pen(s) Use 1 needle as directed TID 03/02/20 24 024 Inactive nystatin 100,000 unit/gram topical powder RxNorm: 053500 Apply 1 Application Topical BID as needed abdominal/breast/ groin folds 03/02/20 024 Inactive FreeStyle Chema 2 [...] (Concentrated) Insulin 500 unit/mL subcutaneous soln RxNorm: 349330 Inject 100 Unit(s) Subcutaneous TID 02/17/20 24 024 Inactive Humulin R U-500 (Concentrated) Insulin 500 unit/mL subcutaneous soln RxNorm: 096740 Inject 100 Unit(s) Subcutaneous TID 02/10/20 24 024 Inactive Basaglar KwikPen U-100 Insulin 100 unit/mL (3 mL) subcutaneous RxNorm: 1337434 Inject 30 Unit(s) Subcutaneous BID 02/10/20 24 024 Inactive Please dispense one month supply. pregabalin 100 mg capsule RxNorm: 183124 Take 1 Capsule(s) Oral QAM every morning 02/07/20 24 024 Inactive isosorbide mononitrate ER 60 mg tablet,extended release 24 hr RxNorm: 674995 Take 1 Tablet(s) Oral QD 02/01/20 24 025 Active aripiprazole 15 mg tablet RxNorm: 805045 Take 1/2 Tablet(s) Oral QD 02/01/20 24 09/11/2 025 Active torsemide 20 mg tablet RxNorm: 161753 1 TAB ORALLY DAILY (DX: EDEMA) 01/27/20 No Stop Date Active potassium chloride ER 20 mEq tablet,extended release(part/cryst) RxNorm: 5373238 2 TABS (40MEQ) ORALLY TWICE DAILY (DX: HYPOKALEMIA) 01/27/20 24 Inactive cephalexin 500 mg capsule RxNorm: 078730 Take 1 Capsule(s) Oral QID 12/17/19 24 Inactive cephalexin 500 mg capsule RxNorm: 441047 Take 1 Capsule(s) Oral QID 12/17/19 24 024 Inactive acetaminophen 500 mg tablet RxNorm: 521581 (MAX APAP:4GM/24HR) Take 1 Tablet(s) Oral TID as needed for pain 12/10/19 24 Inactive torsemide 20 mg tablet RxNorm: 298353 Take 1 Tablet(s) Oral QD 10/26/19 24 Inactive potassium chloride ER 20 mEq tablet,extended release RxNorm: 262293 Take 2 Tablet(s) Oral BID 10/26/19 24 Inactive torsemide 20 mg tablet RxNorm: 758281 Take 1 Tablet(s) Oral QD 10/26/19 24 Inactive potassium chloride ER 20 mEq tablet,extended release RxNorm: 713365 Take 2 Tablet(s) Oral BID 10/26/19 24 Inactive Artificial Tears (PF) 0.1 %-0.3 % drops in a dropperette RxNorm: 301012 Apply 1-2 Drop(s) Both eyes BID as needed 09/28/19 24 Inactive erythromycin 5 mg/gram (0.5 %) eye ointment RxNorm: 635808 Apply 1 Application Both eyes QHS every night at bedtime Instill ~1 cm ribbon into affected eye 09/28/19 24 Inactive Artificial Tears (PF) 0.1 %-0.3 % drops in a dropperette RxNorm: 020972 Apply 1-2 Drop(s) Both eyes BID as needed 09/28/19 24 Inactive erythromycin 5 mg/gram (0.5 %) eye ointment RxNorm: 323920 Apply 1 Application Both eyes QHS every night at bedtime Instill ~1 cm ribbon into affected eye 09/28/19 24 024 Inactive acetaminophen 500 mg tablet RxNorm: 569729 (MAX APAP:4GM/24HR) Take 1 Tablet(s) Oral TID as needed for pain 09/24/19 24 024 Inactive carvedilol 25 mg tablet RxNorm: 829067 Take 1 Tablet(s) Oral QD 09/08/19 24 No Stop Date Active pregabalin 100 mg capsule RxNorm: 439864 Take 1 Capsule(s) Oral QAM every morning 09/07/19 24 024 Inactive bisacodyl 10 mg rectal suppository RxNorm: 294931 Insert 1 Suppository Rectal QD as needed 07/13/19 24 No Stop Date Active ketoconazole 2 % shampoo RxNorm: 204046 Apply 1 Application Topical UD as directed 07/13/19 24 No Stop Date Active Ozempic 1 mg/dose (4 mg/3 mL) subcutaneous pen injector RxNorm: 7299087 Inject 1 Milligram(s) Subcutaneous QW once a week 07/13/19 24 No Stop Date Active Guaifenesin AC 10 mg-100 mg/5 mL oral liquid RxNorm: 850959 Take 10 Milliliter(s) Oral Q4H every four hours as needed 07/13/19 24 No Stop Date Active hydrocortisone 2.5 % topical cream RxNorm: 172227 Apply 1 Application Topical BID as needed 07/13/19 24 No Stop Date Active rosuvastatin 40 mg tablet RxNorm: 843397 Take 1 Tablet(s) Oral QPM every evening 07/13/19 24 024 Inactive ezetimibe 10 mg tablet RxNorm: 815404 Take 1 Tablet(s) Oral QD 07/13/19 24 025 Inactive polyethylene glycol 3350 17 gram/dose oral powder RxNorm: 399588 Take 17 Gram(s) Oral BID as needed mix in 4-8ox water 07/13/19 24 025 Inactive aripiprazole 15 mg tablet RxNorm: 404725 Take 1/2 Tablet(s) Oral QD 07/13/19 24 024 Inactive isosorbide mononitrate ER 60 mg tablet,extended release 24 hr RxNorm: 507288 Take 1 Tablet(s) Oral QD 07/13/19 24 024 Inactive ammonium lactate 12 % topical cream RxNorm: 763545 Apply 1 Application Topical BID 07/13/19 24 025 Inactive rosuvastatin 20 mg sprinkle capsule RxNorm: 5329447 Take 1 Capsule(s) Oral QD 07/13/19 24 025 Inactive Vascepa 1 gram capsule RxNorm: 8301501 Take 2 Capsule(s) Oral BID 07/13/19 24 024 Inactive venlafaxine ER 75 mg capsule,extended release 24 hr RxNorm: 752396 Take 3 Capsule(s) Oral QD 07/13/19 24 024 Inactive Basaglar KwikPen U-100 Insulin 100 unit/mL (3 mL) subcutaneous RxNorm: 6849132 Inject 30U SubQ twice daily 07/07/19 24 024 Inactive Please dispense one month supply. Basaglar KwikPen U-100 Insulin 100 unit/mL (3 mL) subcutaneous RxNorm: 0292033 Inject 30U SubQ twice daily 07/07/19 24 024 Inactive Please dispense one month supply. pregabalin 150 mg capsule RxNorm: 855446 Take 1 Capsule(s) Oral QHS every night at bedtime 07/05/19 24 024 Inactive pregabalin 150 mg capsule RxNorm: 549560 Take 1 Capsule(s) Oral QHS every night at bedtime 07/05/19 24 024 Inactive polyethylene glycol 3350 17 gram/dose oral powder RxNorm: 318868 Take 1 Packet Oral QD as needed (1 packet = 17g) mix with 4-8oz of liquid 06/15/19 24 024 Inactive bisacodyl 10 mg rectal suppository RxNorm: 597552 Insert one suppository per rectum once daily as needed for constipation 06/15/19 24 024 Inactive bisacodyl 10 mg rectal suppository RxNorm: 940834 Insert one suppository per rectum once daily as needed for constipation 06/15/19 24 024 Inactive pregabalin 100 mg capsule RxNorm: 515945 Take 1 Capsule(s) Oral QAM every morning 04/27/20 024 Inactive Levemir FlexPen 100 unit/mL (3 mL) solution subcutaneous insulin pen RxNorm: 378453 Inject 30 Unit(s) Subcutaneous BID 04/27/20 024 Inactive rosuvastatin 40 mg tablet RxNorm: 746027 Take 1 Tablet(s) Oral QPM every evening 04/16/20 024 Inactive D/C rosuvastatin 20mg venlafaxine ER 75 mg capsule,extended release 24 hr RxNorm: 390763 Take 3 Capsule(s) Oral QD 04/14/20 023 Inactive pregabalin 100 mg capsule RxNorm: 863485 Take 1 Capsule(s) Oral QAM every morning [...] strip clotrimazole 1 % topical cream RxNorm: 036149 Take apply topically to abdominal folds twice daily for 14 days 03/12/20 024 Inactive Ozempic 1 mg/dose (4 mg/3 mL) subcutaneous pen injector RxNorm: 1708373 Inject 1 Milligram(s) Subcutaneous QW once a week 03/11/20 23 023 Inactive rosuvastatin 20 mg tablet RxNorm: 293913 Take 1 Tablet(s) Oral QD 02/26/20 023 Inactive d/c pravastatin 80mg Ozempic 1 mg/dose (4 mg/3 mL) subcutaneous pen injector RxNorm: 4973968 Inject 1 Milligram(s) Subcutaneous QW once a week 02/20/20 23 023 Inactive pregabalin 150 mg capsule RxNorm: 648012 Take 1 Capsule(s) Oral HS at bed time 02/19/20 23 023 Inactive pregabalin 100 mg capsule RxNorm: 873257 Take 1 Capsule(s) Oral QAM every morning 02/18/20 23 023 Inactive venlafaxine ER 75 mg capsule,extended release 24 hr RxNorm: 934585 Take 3 Capsule(s) Oral QD 02/04/20 023 Inactive FreeStyle Chema 2 Sensor kit RxNorm: use as directed 02/04/20 23 023 Inactive FreeStyle Chema 2 Sensor kit RxNorm: use as directed 02/04/20 024 Inactive fluconazole 150 mg tablet RxNorm: 546147 Take 1 Tablet(s) Oral on day 3 and on day 6 02/03/20 024 Inactive venlafaxine ER 150 mg capsule,extended release 24 hr RxNorm: 219549 Take 1 Capsule(s) Oral QD 02/03/20 23 023 Inactive chlorthalidone 25 mg tablet RxNorm: 613408 Take 1 Tablet(s) Oral QAM every morning 02/03/20 23 024 Inactive acetaminophen 500 mg tablet RxNorm: 814285 1 TABLET ORALLY 3 TIMES DAILY (MAX APAP:4GM/24HR) 12/15/19 23 023 Inactive potassium chloride ER 20 mEq tablet,extended release RxNorm: 412841 Take 1 Tablet(s) Oral BID 12/09/19 23 024 Inactive d/c 20mEq once daily (sent from hospital) clotrimazole 1 % topical cream RxNorm: 274582 apply 1g topically to top of feet and in between toes BID 12/09/19 23 025 Inactive nystatin 100,000 unit/gram topical powder RxNorm: 088163 APPLY TO AFFECTED AREAS TOPICALLY 2 TIMES DAILY 11/21/19 23 023 Inactive Nystop 100,000 unit/gram topical powder RxNorm: 949073 Apply to abd folds, under breasts and L side of groin Topical BID x 14 days, then BID PRN 11/20/19 023 Inactive dx: yeast dermatitis [place] Ultra Strength 4 %-30 %-10 % topical cream RxNorm: 899915 Apply 1 Gram(s) Topical QID PRN to feet and legs for neuropathic pain 11/11/19 024 Inactive clotrimazole 1 % topical cream RxNorm: 838034 Apply 1/2 Gram(s) Topical BID Apply to affected areas of groin, periarea, and abdominal topically 2 times daily 11/10/19 23 023 Inactive hydrocortisone 2.5 % topical cream RxNorm: 443522 Apply 1/2 Gram(s) Topical BID as needed 11/10/19 024 Inactive Levemir FlexPen 100 unit/mL (3 mL) solution subcutaneous insulin pen RxNorm: 744568 Inject 30 Unit(s) Subcutaneous BID 10/07/19 023 Inactive Humulin R U-500 (Concentrated) Insulin 500 unit/mL subcutaneous soln RxNorm: 473930 Inject 100 Unit(s) Subcutaneous TID 10/07/19 024 Inactive Ozempic 0.25 mg or 0.5 mg (2 mg/3 mL) subcutaneous pen injector RxNorm: 3641634 Inject 1/2 Milligram(s) Subcutaneous QW once a week 10/07/19 024 Inactive aripiprazole 15 mg tablet RxNorm: 734168 1/2 TAB (7.5MG) ORALLY DAILY (DX:MAJOR DEPRESSIVE DISORDER) 09/23/19 023 Inactive Accu-Chek Guide test strips RxNorm: Use 1 Test Strip QID 09/15/19 23 023 Inactive ok to substitute with any covered alternative test strip Lancets,Thin 28 gauge RxNorm: Use 1 as directed QID 09/15/19 23 023 Inactive torsemide 20 mg tablet RxNorm: 704217 Take 1 Tablet(s) Oral BID 09/09/19 23 024 Inactive d/c once daily dosing carvedilol 25 mg tablet RxNorm: 754625 Take 1 Tablet(s) Oral QD 08/25/19 23 024 Inactive pregabalin 150 mg capsule RxNorm: 624854 1 Capsule(s) Oral HS at bed time 08/18/19 23 023 Inactive pregabalin 100 mg capsule RxNorm: 552660 1 Capsule(s) Oral QAM every morning 08/18/19 23 023 Inactive carvedilol 25 mg tablet RxNorm: 230648 1 Tablet(s) Oral QD 07/28/19 23 023 Inactive lisinopril 20 mg tablet RxNorm: 046365 Give 1 Tablet(s) Oral QD 07/28/19 23 023 Inactive Lyrica 150 mg capsule RxNorm: 765921 Take 1 Capsule(s) Oral QHS every night at bedtime 07/19/19 23 023 Inactive d/c 100mg dose Diflucan 150 mg tablet RxNorm: 738713 Take 1 Tablet(s) Oral QD repeat on day 3 and 6 07/19/19 23 023 Inactive pregabalin 100 mg capsule RxNorm: 674580 Take 1 Capsule(s) Oral QAM every morning 07/19/19 23 023 Inactive gatifloxacin 0.5 % eye drops RxNorm: 663338 Instill 1 Drop(s) as directed TID Instill 1 drop in to affected eye(s) starting 1 day prior to surgery and continue until gone (do not exceed 4 weeks). 07/13/19 023 Inactive carvedilol 25 mg tablet RxNorm: 477848 2 Tablet(s) Oral BID 07/13/19 23 023 Inactive Humulin R Regular U-100 Insulin 100 unit/mL injection solution RxNorm: 558831 85 Unit(s) Injection TID 07/13/19 23 023 Inactive ketorolac 0.5 % eye drops RxNorm: 521583 Instill 1 Drop(s) as directed QID Instill 1 drop into affected eye(s) 4 times daily starting 1 day prior to surgery and continue until gone (do not exceed 4 weeks). 07/13/19 23 023 Inactive Diflucan 150 mg tablet RxNorm: 044137 Take 1 Tablet(s) Oral QD repeat on day 3 and 6 06/30/19 23 023 Inactive Accu-Chek Guide test strips RxNorm: Use 1 Test Strip QID Use 1 test strip to monitor blood glucose 4 times daily and as needed. Dx:E11.42. 06/23/19 023 Inactive ok to substitute with any covered alternative test strip dextromethorphan-gu aifenesin 10 mg-100 mg/5 mL oral liquid RxNorm: 475741 Take 10 Milliliter(s) Oral every 4 hours as needed for cough 06/19/19 023 Inactive dextromethorphan-gu aifenesin 10 mg-100 mg/5 mL oral liquid RxNorm: 811358 Take 10 Milliliter(s) Oral every 4 hours as needed for cough 06/19/19 023 Inactive Lyrica 150 mg capsule RxNorm: 722850 Take 1 Capsule(s) Oral QHS every night at bedtime 06/18/19 023 Inactive d/c 100mg dose aripiprazole 15 mg tablet RxNorm: 757350 1/2 TAB (7.5MG) ORALLY DAILY (DX:MAJOR DEPRESSIVE DISORDER) 06/05/19 023 Inactive pregabalin 100 mg capsule RxNorm: 958800 1 Capsule(s) Oral QAM every morning 06/02/19 023 Inactive Banophen 50 mg capsule RxNorm: 1235668 Take 1 Capsule(s) Oral Q6H every 6 hours as needed 05/19/19 23 No Stop Date Active Novolog Flexpen U-100 Insulin aspart 100 unit/mL (3 mL) subcutaneous RxNorm: 0323596 Inject 10 Unit(s) Subcutaneous QHS every night at bedtime with nighttime snack 04/08/20 22 022 Inactive Novolog Flexpen U-100 Insulin aspart 100 unit/mL (3 mL) subcutaneous RxNorm: 1449465 Inject 42 Unit(s) Subcutaneous TID in addition to sliding scale 04/08/20 22 022 Inactive d/c 36u albuterol sulfate HFA 90 mcg/actuation aerosol inhaler RxNorm: 3328759 Take 2 Puff(s) Inhalation Q4H every four hours as needed as needed for SOB, cough, or wheezing 04/07/20 030 Active Banophen 50 mg capsule RxNorm: 9400467 Take 1 Capsule(s) Oral Q6H every 6 hours as needed 04/06/20 023 Inactive diphenhydramine 50 mg tablet RxNorm: 8648538 Take 1 Tablet(s) Oral Q6H every 6 hours as needed 04/06/20 022 Inactive diphenhydramine 50 mg tablet RxNorm: 0070261 1 Tablet(s) Oral Q6H every 6 hours as needed 04/06/20 022 Inactive Abilify 15 mg tablet RxNorm: 534153 1/2 Tablet(s) Oral QD 03/10/20 023 Inactive Shingrix (PF) 50 mcg/0.5 mL intramuscular suspension, kit RxNorm: 2972178 Administer 1/2 Milliliter(s) Intramuscular QD one time shingrix step 2 ( step 1 given 11/04/21) WITH needle - Nursing please administer upon arrival and once administered post a bridge 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, 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, 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, and lot# so we can update [facility] 02/18/20 22 022 Inactive dispense with needle Shingrix (PF) 50 mcg/0.5 mL intramuscular suspension, kit RxNorm: 4815500 Administer 1/2 Milliliter(s) Intramuscular QD one time shingrix step 2 ( step 1 given 11/04/21) WITH needle - Nursing please administer upon arrival and once administered post a bridge message 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, 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, 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, and lot# so we can update [facility] 02/18/20 22 022 Inactive dispense with needle Lyrica 100 mg capsule RxNorm: 563578 Take 1 Capsule(s) Oral QAM every morning 01/08/20 22 022 Inactive d/c 50mg dose acetaminophen 500 mg tablet RxNorm: 890391 Take 1 Tablet(s) Oral TID 01/08/20 22 022 Inactive d/c PRN order Lyrica 150 mg capsule RxNorm: 957110 Take 1 Capsule(s) Oral QHS every night at bedtime 01/08/20 22 023 Inactive d/c 100mg dose polyethylene glycol 3350 17 gram/dose oral powder RxNorm: 625686 Take 17=1 capful Gram(s) Oral QD mix with 4-8oz of liquid 01/08/20 22 025 Inactive take this in addition to BID prn order Abilify 5 mg tablet RxNorm: 749650 Take 1 Tablet(s) Oral QD take 1 tab po QD #30 refill 5 dx: MDD 12/12/19 22 022 Inactive Abilify 5 mg tablet RxNorm: 185586 Take 1 Tablet(s) Oral QD take 1 tab po QD #30 refill 5 dx: MDD 12/12/19 22 022 Inactive Novolog Flexpen U-100 Insulin aspart 100 unit/mL (3 mL) subcutaneous RxNorm: 0755257 Inject 42 Unit(s) Subcutaneous TID in addition to sliding scale 12/10/19 22 022 Inactive d/c 36u chlorthalidone 25 mg tablet RxNorm: 944739 Take 1 Tablet(s) Oral QAM every morning 12/10/19 22 023 Inactive pregabalin 50 mg capsule RxNorm: 229056 Take 1 Capsule(s) Oral QAM every morning 11/12/19 22 022 Inactive tetanus-diphtheria toxoids-Td 2 Lf unit-2 Lf unit/0.5 mL IM suspension RxNorm: 139 Take 0.5 Miscellaneous Intramuscular 11/12/19 22 022 Inactive need tdap - nursing to administer upon arrival pregabalin 50 mg capsule RxNorm: 360503 Take 1 Capsule(s) Oral QAM every morning 10/16/19 22 022 Inactive pregabalin 50 mg capsule RxNorm: 538758 Take 1 Capsule(s) Oral QAM every morning 10/16/19 22 022 Inactive pregabalin 50 mg capsule RxNorm: 852300 1 Capsule(s) Oral QAM every morning 10/15/19 22 022 Inactive Shingrix (PF) 50 mcg/0.5 mL intramuscular suspension, kit RxNorm: 2003293 Administer 1/2 Milliliter(s) Intramuscular one time Nursing please administer upon arrival and once administered post a bridge message 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, expiration date, and lot# so [...] aspart 100 unit/mL (3 mL) subcutaneous RxNorm: 4742149 Inject 10 Unit(s) Subcutaneous QHS every night at bedtime with nighttime snack 10/08/19 22 Inactive Shingrix (PF) 50 mcg/0.5 mL intramuscular suspension, kit RxNorm: 9466474 ADMINISTER 2-DOSE SERIES PER CDC GUIDELINES 10/08/19 22 Active Shingrix (PF) 50 mcg/0.5 mL intramuscular suspension, kit RxNorm: 8401665 ADMINISTER 2-DOSE SERIES PER CDC GUIDELINES 10/08/19 22 022 Inactive Novolog Flexpen U-100 Insulin aspart 100 unit/mL (3 mL) subcutaneous RxNorm: 6768024 Inject 36 Unit(s) Subcutaneous TID in addition to sliding scale 10/08/19 22 022 Inactive cholecalciferol (vitamin D3) 1,250 mcg (50,000 unit) capsule RxNorm: 053932 Take 1 Capsule(s) Oral QW once a week 10/08/19 22 024 Inactive Novofine Autocover 30 gauge x 1/3 needle RxNorm: Use 1 Miscellaneous UD as directed Use 1 needle as directed to administer insulin 5 times a day Dx:E11.42. 10/03/19 22 022 Inactive ok to substitute with any covered alternative pen needle benzoyl peroxide 10 % topical cleanser RxNorm: 923626 Apply 1 Application Topical QD apply to face, wash rinse and dry once daily (may change to QOD if drying) 08/19/19 22 022 Inactive (%covered by insurance) #60ml refill 11 dx: acne benzoyl peroxide 10 % topical cleanser RxNorm: 745272 Apply 1 Application Topical QD apply to face, wash rinse and dry once daily (may change to QOD if drying) 08/19/19 22 022 Inactive (%covered by insurance) #60ml refill 11 dx: acne benzoyl peroxide 10 % topical cleanser RxNorm: 843570 Apply 1 Application Topical QD apply to face, wash rinse and dry once daily (may change to QOD if drying) 08/19/19 22 022 Inactive (%covered by insurance) #60ml refill 11 dx: acne Lyrica 50 mg capsule RxNorm: 133992 Take 1 Capsule(s) Oral QAM every morning Take 1 capsule by mouth once daily 08/19/19 22 022 Inactive benzoyl peroxide 10 % topical cleanser RxNorm: 408457 Apply 1 Application Topical QD apply to face, wash rinse and dry once daily (may change to QOD if drying) 08/19/19 022 Inactive (%covered by insurance) #60ml refill 11 dx: acne Lyrica 100 mg capsule RxNorm: 539272 Take 1 Capsule(s) Oral QHS every night at bedtime Take 1 capsule by mouth once daily at bedtime 08/19/19 22 022 Inactive Lyrica 100 mg capsule RxNorm: 250837 Take 1 Capsule(s) Oral QHS every night at bedtime Take 1 capsule by mouth once daily at bedtime 08/16/19 22 022 Inactive Lyrica 50 mg capsule RxNorm: 055924 Take 1 Capsule(s) Oral QAM every morning Take 1 capsule by mouth once daily 08/16/19 22 022 Inactive Levemir FlexTouch U-100 Insulin 100 unit/mL (3 mL) subcutaneous pen RxNorm: 811253 Inject 86 Unit(s) Subcutaneous BID 08/05/19 22 022 Inactive d/c 83units BID Lyrica 100 mg capsule RxNorm: 849736 Take 1 Capsule(s) Oral QHS every night at bedtime Take 1 capsule by mouth once daily at bedtime 07/14/19 22 022 Inactive Lyrica 50 mg capsule RxNorm: 266530 Take 1 Capsule(s) Oral QAM every morning Take 1 capsule by mouth once daily 07/14/19 22 022 Inactive Levemir FlexTouch U-100 Insulin 100 unit/mL (3 mL) subcutaneous pen RxNorm: 665585 Inject 83 Unit(s) Subcutaneous BID 07/08/19 22 [...] test strip hydralazine 50 mg tablet RxNorm: 712329 Take 1 Tablet(s) Oral QID 05/05/20 21 022 Inactive venlafaxine ER 225 mg tablet,extended release 24 hr RxNorm: 594188 Take 1 Tablet(s) Oral QD 05/05/20 21 Inactive venlafaxine ER 225 mg tablet,extended release 24 hr RxNorm: 851688 Take 1 Tablet(s) Oral QD 05/05/20 022 Inactive isosorbide mononitrate ER 30 mg tablet,extended release 24 hr RxNorm: 500174 Take 1 Tablet(s) Oral QD 05/05/20 024 Inactive hydralazine 50 mg tablet RxNorm: 827060 Take 1 Tablet(s) Oral QID 05/05/20 21 Inactive aspirin 81 mg tablet,delayed release RxNorm: 799677 Take 1 Tablet(s) Oral QD 03/31/20 022 Inactive Vitamin D2 1,250 mcg (50,000 unit) capsule RxNorm: 5578809 Take 1 Capsule(s) Oral QW once a week x 12 weeks 03/31/20 022 Inactive Vitamin D2 1,250 mcg (50,000 unit) capsule RxNorm: 0963203 Take 1 Capsule(s) Oral QW once a week 03/31/20 021 Inactive Zetia 10 mg tablet RxNorm: 669752 Take 1 Tablet(s) Oral QD 03/31/20 024 Inactive Zetia 10 mg tablet RxNorm: 162418 Take 1 Tablet(s) Oral QD 03/31/20 021 Inactive hydralazine 25 mg tablet RxNorm: 777966 Take 1 Tablet(s) Oral QID 03/31/20 021 Inactive hydralazine 25 mg tablet RxNorm: 881926 Take 1 Tablet(s) Oral QID 03/31/20 021 Inactive hydralazine 10 mg tablet RxNorm: 833787 Take 1 Tablet(s) Oral QID 03/03/20 021 Inactive cephalexin 500 mg tablet RxNorm: 336495 Take 1 Tablet(s) Oral QID 02/27/20 021 Inactive cephalexin 500 mg tablet RxNorm: 906336 Take 1 Tablet(s) Oral QID 02/27/20 021 Inactive lisinopril 40 mg tablet RxNorm: 716930 Take 1 Tablet(s) Oral QD 02/11/20 023 Inactive Eliquis 5 mg tablet RxNorm: 4088815 Take 1 Tablet(s) Oral BID 01/05/20 21 025 Inactive Eliquis 5 mg tablet RxNorm: 8765653 Take 2 Tablet(s) Oral QD 01/01/20 21 021 Inactive Lyrica 50 mg capsule RxNorm: 729197 Take 1 Capsule(s) Oral QAM every morning 12/24/19 21 021 Inactive Lyrica 100 mg capsule RxNorm: 865171 Take 1 Capsule(s) Oral QHS every night at bedtime 12/24/19 21 021 Inactive clotrimazole 1 % topical cream RxNorm: 996261 Apply to right foot and toes Topical BID 12/04/19 21 023 Inactive metoprolol succinate ER 200 mg tablet,extended release 24 hr RxNorm: 218610 Take 1 Tablet(s) Oral QD 12/04/19 21 023 Inactive ciprofloxacin 500 mg tablet RxNorm: 717071 Take 1 Tablet(s) Oral QD 11/30/19 21 021 Inactive DX ofloxacin otic drops Accu-Chek Guide test strips RxNorm: USE 1 TO CHECK GLUCOSE 4 TIMES DAILY AND NEEDED 11/15/19 21 023 Inactive Blood Glucose Test strips RxNorm: Use 1 Test Strip QID at PRN 11/05/19 21 023 Inactive E11.42 lisinopril 30 mg tablet RxNorm: 616212 Take 1 Tablet(s) Oral QD 10/30/19 21 021 Inactive lisinopril 20 mg tablet RxNorm: 755117 Take 1 Tablet(s) Oral QD 10/23/19 21 021 Inactive lisinopril 20 mg tablet RxNorm: 457041 Take 1 Tablet(s) Oral QD 10/23/19 21 021 Inactive lisinopril 10 mg tablet RxNorm: 568641 Take 1 Tablet(s) Oral QD 10/02/19 21 021 Inactive icosapent ethyl 1 gram capsule RxNorm: 8601417 Take 2 Capsule(s) (2 gm) Oral BID with meals 09/12/19 21 024 Inactive Okay to dispense one 2gm tab if you have that available. icosapent ethyl 1 gram capsule RxNorm: 5566467 Take 2 Capsule(s) Oral BID 09/12/19 21 021 Inactive Okay to dispense one 2gm tab if you have that available. amlodipine 10 mg tablet RxNorm: 449484 Take 1 Tablet(s) Oral QD 09/04/19 21 021 Inactive aspirin 81 mg tablet,delayed release RxNorm: 746208 Take 1 Tablet(s) Oral QD 09/04/19 21 021 Inactive Levemir FlexTouch U-100 Insulin 100 unit/mL (3 mL) subcutaneous pen RxNorm: 270162 Inject 150 Unit(s) Subcutaneous BID 09/04/19 21 022 Inactive venlafaxine ER 150 mg tablet,extended release 24 hr RxNorm: 893557 Take 1 Tablet(s) Oral QD 09/04/19 21 021 Inactive clotrimazole-betame thasone 1 %-0.05 % topical cream RxNorm: 368216 Apply to rash on red area on left abdomen/chest Topical BID 08/10/19 21 021 Inactive amlodipine 5 mg tablet RxNorm: 252481 Take 1 Tablet(s) Oral QD 07/31/19 21 Inactive cephalexin 500 mg tablet RxNorm: 008516 Take 1 Tablet(s) Oral BID BID - Twice Daily 07/31/19 21 021 Inactive Start 08/01/20 pantoprazole 40 mg tablet,delayed release RxNorm: 403477 Take 1 Tablet(s) Oral QAM every morning 07/08/19 025 Inactive clopidogrel 75 mg tablet RxNorm: 577717 Take 1 Tablet(s) Oral QD 07/08/19 021 Inactive Blood Glucose Test strips RxNorm: Use 1 Test Strip QID at PRN 07/08/19 Inactive E11.42 senna 8.6 mg tablet RxNorm: 721108 Take 1 Tablet(s) Oral QD 07/08/19 025 Inactive Novolog Flexpen U-100 Insulin aspart 100 unit/mL (3 mL) subcutaneous RxNorm: 6715383 Administer per sliding scale Milliliter(s) Subcutaneous TID 151-200: 10 u; 201-250: 20 u; 251-300: 30 u; 301-350: 40 u; 351-400: 50 u. 07/08/19 21 022 Inactive lisinopril 5 mg tablet RxNorm: 529306 Take 1 Tablet(s) Oral QD 07/08/19 021 Inactive Novolog Flexpen U-100 Insulin aspart 100 unit/mL (3 mL) subcutaneous RxNorm: 8602117 Inject 85 Unit(s) Subcutaneous TID 07/08/19 21 022 Inactive pravastatin 80 mg tablet RxNorm: 459340 Take 1 Tablet(s) Oral QHS every night at bedtime 07/08/19 023 Inactive clotrimazole 1 % topical cream RxNorm: 592962 Apply to bilateral groin areas Topical BID 07/08/19 21 022 Inactive metoprolol succinate ER 200 mg tablet,extended release 24 hr RxNorm: 411390 Take 1 Tablet(s) Oral QD 07/08/19 021 Inactive Vitamin D3 25 mcg (1,000 unit) tablet RxNorm: 885463 Take 1 Tablet(s) Oral QD 07/08/19 21 021 Inactive isosorbide dinitrate 30 mg tablet RxNorm: 016187 Take 1 Tablet(s) Oral QD 07/08/19 21 021 Inactive carbamazepine 200 mg tablet RxNorm: 346731 Take 1 Tablet(s) Oral BID 07/08/19 21 025 Inactive Levemir FlexTouch U-100 Insulin 100 unit/mL (3 mL) subcutaneous pen RxNorm: 865790 Inject 140 Unit(s) Subcutaneous BID 07/08/19 21 021 Inactive torsemide 20 mg tablet RxNorm: 188566 Take 1 Tablet(s) Oral QD 07/08/19 21 023 Inactive venlafaxine 75 mg tablet RxNorm: 053622 Take 1 Tablet(s) Oral QD 07/08/19 021 Inactive acetaminophen 500 mg tablet RxNorm: 318219 Take 1 Tablet(s) Oral TID as needed for headache 06/18/19 21 021 Inactive acetaminophen 500 mg tablet RxNorm: 285374 Take 1 Tablet(s) Oral TID as needed for headache 06/18/19 21 021 Inactive Lyrica 100 mg capsule RxNorm: 056283 Take 1 Capsule(s) Oral QHS every night at bedtime 06/11/19 021 Inactive Lyrica 50 mg capsule RxNorm: 159604 Take 1 Capsule(s) Oral QAM every morning 06/10/19 21 021 Inactive hydrocortisone 2.5 % topical cream RxNorm: 160203 Apply to bilateral groin creases Topical BID 05/15/20 20 021 Inactive clotrimazole 1 % topical cream RxNorm: 981736 Apply to bilateral groin areas Topical BID 05/15/20 20 021 Inactive Lyrica 50 mg capsule RxNorm: 263632 Take 1 Capsule(s) Oral QAM every morning 05/14/20 20 020 Inactive Lyrica 100 mg capsule RxNorm: 759467 Take 1 Capsule(s) Oral QHS every night [...] Inactive Nystop 100,000 unit/gram topical powder RxNorm: 554180 Apply to abd folds, under breasts and L side of groin Topical BID x 14 days, then BID PRN 04/08/20 20 Inactive dx: yeast dermatitis Lyrica 100 mg capsule RxNorm: 816126 Take 1 Capsule(s) Oral QHS every night at bedtime 03/13/20 20 Inactive Lyrica 50 mg capsule RxNorm: 885966 Take 1 Capsule(s) Oral QAM every morning 03/13/20 20 Inactive ketoconazole 2 % shampoo RxNorm: 400986 Apply Topical two times a week with showers 03/11/20 20 024 Inactive cholecalciferol (vitamin D3) 50 mcg (2,000 unit) tablet RxNorm: 256579 Take 1 Tablet(s) Oral QD 03/11/20 20 021 Inactive Zetia 10 mg tablet RxNorm: 455198 Take 1 Tablet(s) Oral QD 03/07/20 20 021 Inactive Zetia 10 mg tablet RxNorm: 931273 Take 1 Tablet(s) Oral QD 03/07/20 20 Inactive Lyrica 50 mg capsule RxNorm: 838456 Take 1 Capsule(s) Oral QAM every morning 02/15/20 20 Inactive Lyrica 100 mg capsule RxNorm: 138936 Take 1 Capsule(s) Oral QHS every night at bedtime 02/15/20 20 Inactive Lyrica 100 mg capsule RxNorm: 584367 Take 1 Capsule(s) Oral QHS every night at bedtime 02/15/20 20 020 Inactive Lyrica 50 mg capsule RxNorm: 631210 Take 1 Capsule(s) Oral QAM every morning 02/15/20 20 020 Inactive venlafaxine ER 75 mg capsule,extended release 24 hr RxNorm: 816154 Take 3 Capsule(s) Oral QD 06/12/19 22 023 Inactive polyethylene glycol 3350 17 gram/dose oral powder RxNorm: 040292 Take 17=1 capful Gram(s) Oral BID as needed mix with 4-8oz of liquid 06/12/19 22 024 Inactive icosapent ethyl 1 gram capsule RxNorm: 5672649 Take 2 Capsule(s) (2 gm) Oral BID with meals 10/07/19 23 023 Inactive Okay to dispense one 2gm tab if you have that available. Levemir FlexTouch U-100 Insulin 100 unit/mL (3 mL) subcutaneous pen RxNorm: 731779 Inject 80 Unit(s) Subcutaneous BID 07/14/19 23 023 Inactive metoprolol succinate ER 200 mg tablet,extended release 24 hr RxNorm: 375096 Take 1 Tablet(s) Oral QD 08/12/19 23 025 Inactive loperamide 2 mg capsule RxNorm: 287218 Take 1 Capsule(s) Oral QID as needed 09/06/19 25 025 Inactive hydralazine 50 mg tablet RxNorm: 308837 Take 1 Tablet(s) Oral QID 08/12/19 23 025 Inactive Soft Touch Lancets RxNorm: miscellaneous 03/04/20 24 025 Inactive Novolog Flexpen U-100 Insulin aspart 100 unit/mL (3 mL) subcutaneous RxNorm: 0115463 Insert 30 Unit(s) Subcutaneous TID with meals [...] Date SYS BP LESS 140 CPT-4: G8752 11/07/2024 CUI BP LESS 90 CPT-4: G8754 11/07/2024 Vital Signs Date Vital 11/07/2024 Blood Pressure 1: 13 0/80 Code: 8480-6 Heart Rate 1: 86 bpm Code: 8867-4 SpO2: 95% Functional Status Functional / Cognitive Codes Status [...] Performer Location Location Address Codes Cristiano e ([id number]) Home Visit - Est Pt, moderate Diagnosis: Constipation by delayed colonic transit[ICD10: K59.01] Diagnosis: Hypokalemia[ICD10: E87.6] Diagnosis: Loose stools[ICD10: R19.5] Diagnosis: Paraparesis of both lower limbs[ICD10: G82.20] Diagnosis: Seizure disorder[ICD10: G40.909] Diagnosis: Type 2 diabetes mellitus with diabetic polyneuropathy, with long-term current use of insulin[ICD10: E11.42]Harrison Stewart [place] [id number] [place] [address]REK-2: [id number] Plan of Care Planned Activity Notes Codes Status Date Referral: [facility] [address] [id number] USReferralRecords requested ppointment: Harrison Munson WPtel: [address] [place], [place] [id number] USF/U008/08/2024ppointment: Harrison Munson WPtel: [address] [place], [place] [phone] USF/07/11/2024Referral: [facility]/Endocrinology WPtel: 3 [facility] 3 [id number] USReferralNo Records Skxftaec92/24/2025ppointment: Harrison Munson WPtel: [address] [place], [place] [phone] [facility]02/08/2024ppointment: Harrison Munson WPtel: [address] USF/U001/11/2024ppointment: Sandra Clark WPtel: [address] [facility] 300 [id number] [facility] Psych Follow Up12/09/2022ppointment: Yola Shirleyy WPtel: [address] [facility] 300 [id number] USTCM10/26/2022Referral: [facility] [address] [facility] [address] [id number] USReferralRecords Sxgblslq92/08/2023ppointment: Rosalina Shirley WPtel: [address] [facility] 300 [id number] US/U008/11/2022ppointment: Rosalina Shirley WPtel: [address] [facility] 300 [id number] USF/U007/14/2022ppointment: Rosalina Shirley WPtel: [address] [facility] 300 [id number] USF/U02Referral: [facility] WPtel: [address] [facility] [address] [id number] WLTdhwszhtDgrrshlmv61/12/2022Referral: General CardiologyReferralCompleted 1Referral: General PsychologistReferralClosedReferral: General PsychiatristReferralPatient/Family [...] Sister Jyotsna involved in his care cell# [phone] Guardian: Giulia middleton met in person 09/01/21), [...] appointment 05.26.2024 with Jessa Webster MD at [facility]. Start Pioglitazone 15 mg QD. Stop Basaglar insulin. Increase Ozempic 2 mg once wkly. Continue Humalin R U-500 100 units with meals TID. FOLLOW UP 2 MONTHS. If BG >400 add 50 units to next scheduled dose of Humalin R U 500 insulin 06/12/2024 Type 2 diabetes mellitus wit h diabetic polyneuropathy, with long-term current use of insulin CHRONIC?? Endocrinology appointment 05.26.2024 with Jessa Webster MD at [facility]. Started Pioglitazone 15 mg QD. Stop Basaglar insulin. ??Increase Ozempic 2 mg once wkly. Continue Humalin R U-500 100 units with meals TID. FOLLOW UP 2 MONTHS. If BG >400 add 50 units to nextscheduled dose of Humalin R U 500 insulin. 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 4.: A1c 9.8%. - next A1c due in November. Leonid shares he feels his has a virtual endocrinology appointment yet this month although doesn't know the date - PCP will follow up with nursing on this.?? BG log reviewed; 100s-300s.?? Seizure disorder No recent seizure activity No longer follows with neurology Continue to monitor for seizure activity Continue carbamazepine 200 mg PO BID.?? Constipation by delayed colonic transit Having 3 soft BMs per day Continue PRN medication if constipation occurs - senna and miralax PRN.?? Encouraged hydration with water and healthy dietary intake as poor dietary intake can lead to altereed bowel movements.?? Monitor for worsening constipation or loose stools and adjust treatment plan accordingly. Staff to notify [facility] if they see signs of an ileus or bowel obstruction. Hypokalemia Chronic Increased risk for further complications due to high insulin needs for diabetic control potassium recheck (4.0).?? Continue potassium supplementation TID.?? Results shared with Leonid today.?? Paraparesis of both lower limbs Chronic Walks with a walker Has trapeze above his bed Encouraged mobility as able and as tolerated Loose stools All BM medication PRN now Does have PRN loperamide?? No S&S of infectious etiology. Poor dietary intake likely the causative factor - which was discussed. He feels he is having diarrhea although reports soft stools not loose or watery.??. 11/07/2024
--- OUTSIDE RECORDS SUMMARY | 2024-12-11 14:46 | XMS_ITS | CCD ---
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 Unknown No [...] Unknown Prison 09/03/[address]: 524539141 No Alcohol Consum ption 09/02/2020 Allergies, Adverse Reactions, Alerts Substance Reaction Codes Entered Date Inactivated Date Status * NO KNOWN FOOD ALLERGIES Ztgqdqy0907/13/2023No Inactive DateActiveLISINOPRILRxNorm: 5616632No Inactive DateActiveMetformin YTbDbppvca63/28/2020No Inactive DateActive* NO KNOWN ENVIRONMENTAL JOZEUUGBWBdwjbrm64/27/2024No Inactive DateActive Problems Condition Codes Effective Dates [...] ICD-9: 296.3005/5ActiveOnychogryposisICD-10: L60.2 ICD-9: 703.8055ActivePulmonary noduleSNOMED CT: 227878323 ICD-10: R91.1 ICD-9: 793.11055ActiveRecurrent major depressive disorder, in partial remissionICD-10: F33.41 ICD-9: 296.35055ActiveStage 2 chronic 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ICD-10: E11.22 ICD-9: 250.4005/5ActivePressure ulcer of left calf, unstageableICD-10: L89.890 ICD-9: 707.0905/ResolvedBody mass index [BMI] 60.0-69.9, adultSNOMED CT: 552711454 ICD-10: Z68.44 ICD-9: V85.4403/5ActiveMixed incontinenceSNOMED CT: 27487329 ICD-10: N39.46 ICD-9: 788.3303/5ActiveDiabetic neuropathy associated with [...] planning - to document end of life svvugjjnfxdKncphzg79/24/2024ctiveAnnual physical examICD-10: Z00.00 ICD-9: V70.009ctiveHistory of anemia due to CKDICD-10: N18.9 ICD-9: 585.909/ctiveHx of deep venous thrombosisICD-10: Z86.718 ICD-9: V12.5109/ctiveLearning disabilityICD-10: F81.9 ICD-9: 315.209/ctiveReducible umbilical herniaICD-10: K42.9 ICD-9: 553.109/ctiveVitamin D deficiencyICD-10: E55.9 ICD-9: 268.909/ctiveCallus of heelICD-10: L84 ICD-9: 73318/esolvedGout due to renal impairmentICD-10: M10.30 ICD-9: 274.1005esolvedHyperhidrosis of palmsICD-10: L74.512 ICD-9: 705.2105esolvedHyperlipidemia, unspecifiedICD-10: E78.5 ICD-9: 272.405esolvedOther remote computer terminal operator (current) drug therapyICD-10: Z79.899 ICD-9: V58.6905esolvedPain [...] tagICD-10: L91.8 ICD-9: 701.904/4ResolvedCoronary artery disease involving [place] coronary artery of [place] heart, angina presence unspecifiedICD-10: I25.10 ICD-9: 414.0102/4ActiveInappropriate sexual behaviorICD-10: Z72.89 ICD-9: 312.8910/ctivePre-op evaluationICD-10: Z01.818 ICD-9: V72.8403/ctiveSecondary hypertensionICD-10: I15.9 ICD-9: 405.9903/ctiveDepressionICD-10: F32.9 ICD-9: 74361/esolvedDVT (deep venous thrombosis)ICD-10: I82.409 ICD-9: 453.4009/esolvedEncounter for [...] to other viral communicable diseasesICD-10: Z20.828 ICD-9: V01.7902/3392RqekdlhdQedxxdwpCjapzsh82/28/2020ActiveDiabetes mellitus Type 3Juwspwb88/28/2020ActiveAnemia in chronic kidney diseaseICD-10: D63.1 02/12/2020ResolvedHyperlipidemia, unspecifiedICD-10: E78.509Resolved Medications Medication Codes Instructions Start Date Stop Date Status Fill Instructions Culturelle 10 billion cell capsule RxNorm: 075124 Take 1 Capsule(s) Oral QD 11/08/19 25 026 Active Culturelle 10 billion cell capsule RxNorm: 683280 Take 1 Capsule(s) Oral QD 11/08/19 25 025 Inactive hydrocodone 5 mg-acetaminophen 325 mg tablet RxNorm: 542926 Take 1 Tablet(s) Oral Q4H every four hours as needed for pain PRN for severe acute dental pain 10/21/19 25 025 Inactive penicillin V potassium 500 mg tablet RxNorm: 737629 Take 1 Tablet(s) Oral QID Take until dental appointment per ER recommendation 10/21/19 25 025 Inactive hydrocodone 5 mg-acetaminophen 325 mg tablet RxNorm: 977323 Take 1 Tablet(s) Oral Q4H every four hours as needed for pain PRN for severe acute dental pain 10/21/19 25 025 Inactive penicillin V potassium 500 mg tablet RxNorm: 943183 Take 1 Tablet(s) Oral QID Take until dental appointment per ER recommendation 10/21/19 25 025 Inactive potassium chloride ER 20 mEq tablet,extended release RxNorm: 259063 Take 2 Tablet(s) Oral TID (dx: hypokalemia) 09/14/19 25 026 Active potassium chloride ER 20 mEq tablet,extended release RxNorm: 253854 Take 2 Tablet(s) Oral TID (dx: hypokalemia) 09/14/19 25 025 Inactive loperamide 2 mg tablet RxNorm: 167883 Take 2 Tablet(s) Oral UD as directed [...] Date Active senna 8.6 mg tablet RxNorm: 046899 Take 1 Tablet(s) Oral QD as needed and 1 tab BID prn 09/06/19 No Stop Date Active cyclobenzaprine 10 mg tablet RxNorm: 653913 Take 1 Tablet(s) Oral QHS every night at bedtime as needed 09/06/19 No Stop Date Active loperamide 2 mg tablet RxNorm: 212203 Take 2 Tablet(s) Oral UD as directed as needed 2 tabs after first loose stool then 1 tab after each subsequent stool PRN Do not exceed 4 doses in 24 hours. Do not administer until after 3 loose stools. 09/06/19 026 Active pioglitazone 15 mg tablet RxNorm: 357604 Take 1 Tablet(s) Oral QD 09/06/19 No Stop Date Active loperamide 2 mg tablet RxNorm: 324708 Take 2 Tablet(s) Oral UD as directed as needed 2 tabs after first loose stool then 1 tab after each subsequent stool PRN Do not exceed 4 doses in 24 hours. Do not administer until after 3 loose stools. 09/06/19 025 Inactive pregabalin 100 mg capsule RxNorm: 553837 1 CAPSULE BY MOUTH EVERY MORNING (DX: NEUROPATHY) 08/23/19 25 025 Active FACILITY IS REQUESTING REFILL. PRIOR RX HAS BEEN EXHAUSTED. THANK YOU. pregabalin 150 mg capsule RxNorm: 653670 1 CAPSULE BY MOUTH AT BEDTIME (DX: NEUROPATHY) 08/21/19 25 025 Active FACILITY IS REQUESTING A REFILL OF THIS MEDICATION, THANK YOU! senna 8.6 mg tablet RxNorm: 246010 Take 1 Tablet(s) Oral QD as needed for constipation on day 2 of no bowel movement 08/09/19 25 025 Inactive Miralax 17 gram/dose oral powder RxNorm: 716706 Administer 17 Gram(s) Oral QD as needed for constipation on day 3 of no bowel movement 08/09/19 25 025 Inactive senna 8.6 mg tablet RxNorm: 619495 Take 1 Tablet(s) Oral QD as needed for constipation on day 2 of no bowel movement 08/09/19 25 Inactive Miralax 17 gram/dose oral powder RxNorm: 135086 Administer 17 Gram(s) Oral QD as needed for constipation on day 3 of no bowel movement 08/09/19 25 Inactive pregabalin 100 mg capsule RxNorm: 351517 Take 1 Capsule(s) Oral QAM every morning [...] (Concentrated) Insulin 500 unit/mL subcutaneous soln RxNorm: 357127 Inject 100 Unit(s) Subcutaneous AC before meals Three times daily before meals. 07/24/19 25 025 Inactive ammonium lactate 12 % topical cream RxNorm: 602063 Apply 1 Application Topical BID 07/20/19 No Stop Date Active ezetimibe 10 mg tablet RxNorm: 407853 Take 1 Tablet(s) Oral QD 07/18/19 No Stop Date Active senna 8.6 mg tablet RxNorm: 265675 Take 1 Tablet(s) Oral QD 07/18/19 25 025 Inactive metoprolol succinate ER 200 mg tablet,extended release 24 hr RxNorm: 611685 Take 1 Tablet(s) Oral QD 06/19/19 No Stop Date Active pantoprazole 40 mg tablet,delayed release RxNorm: 373057 Take 1 Tablet(s) Oral QAM every morning 06/19/19 25 No Stop Date Active hydralazine 50 mg tablet RxNorm: 513241 Take 1 Tablet(s) Oral QID 06/19/19 25 No Stop Date Active carbamazepine 200 mg tablet RxNorm: 848233 Take 1 Tablet(s) Oral BID 06/19/19 25 No Stop Date Active amlodipine 10 mg tablet RxNorm: 545411 Take 1 Tablet(s) Oral QD 06/19/19 25 No Stop Date Active Eliquis 5 mg tablet RxNorm: 9240078 Take 1 Tablet(s) Oral BID 06/19/19 25 No Stop Date Active pen needle, diabetic 30 gauge x 3/16 RxNorm: Use 1 6 times per day w/insulin 06/14/19 25 026 Active pen needle, diabetic 30 gauge x 3/16 RxNorm: Use 1 needle 6 times per day w/insulin 06/14/19 25 025 Inactive nystatin 100,000 unit/gram topical powder RxNorm: 800190 Apply 1 Application Topical BID as needed abdominal/breast/ groin folds 05/24/19 25 026 Active pregabalin 100 mg capsule RxNorm: 765125 Take 1 Capsule(s) Oral QAM every morning 05/22/19 25 025 Inactive nystatin 100,000 unit/gram topical powder RxNorm: 383009 Apply 1 Application Topical BID as needed abdominal/breast/ groin folds 04/11/20 24 024 Inactive chlorthalidone 25 mg tablet RxNorm: 031806 Take 1 Tablet(s) Oral QAM every morning 04/06/20 24 No Stop Date Active pregabalin 150 mg capsule RxNorm: 807681 Take 1 Capsule(s) Oral QHS every night at bedtime 03/31/20 24 024 Inactive Vascepa 1 gram capsule RxNorm: 1808749 Take 2 Capsule(s) Oral BID 03/30/20 24 025 Active rosuvastatin 40 mg tablet RxNorm: 168025 1 TAB ORALLY EVERY EVENING (DX:CORONARY ARTERY DISEASE) 03/28/20 24 No Stop Date Active venlafaxine ER 75 mg capsule,extended release 24 hr RxNorm: 327250 3 CAPS (225MG) ORALLY DAILY (DX: MOOD DISORDER) 03/28/20 24 No Stop Date Active pregabalin 100 mg capsule RxNorm: 934342 Take 1 Capsule(s) Oral QAM every morning 03/20/20 24 024 Inactive cholecalciferol (vitamin D3) 1,250 mcg (50,000 unit) capsule RxNorm: 366987 Take 1 Capsule(s) Oral QW once a [...] Insulin 100 unit/mL (3 mL) subcutaneous RxNorm: 4771756 Inject 40 Unit(s) Subcutaneous BID 03/07/20 Inactive Please dispense one month supply. Humulin R U-500 (Concentrated) Insulin 500 unit/mL subcutaneous soln RxNorm: 397614 Inject 100 Unit(s) Subcutaneous AC before meals [...] PRN) to be use with new Accu [place] meter 03/04/20 Inactive ok to substitute with any covered alternative test strip FreeStyle Chema 2 Sensor kit RxNorm: Use UD as directed 03/02/20 24 024 Inactive Pen Needle 30 gauge x 5/16 RxNorm: Pen(s) Use 1 needle as directed TID 03/02/20 24 024 Inactive nystatin 100,000 unit/gram topical powder RxNorm: 424447 Apply 1 Application Topical BID as needed [...] (Concentrated) Insulin 500 unit/mL subcutaneous soln RxNorm: 570265 Inject 100 Unit(s) Subcutaneous TID 02/17/20 24 024 Inactive Humulin R U-500 (Concentrated) Insulin 500 unit/mL subcutaneous soln RxNorm: 441103 Inject 100 Unit(s) Subcutaneous TID 02/10/20 24 024 Inactive Basaglar KwikPen U-100 Insulin 100 unit/mL (3 mL) subcutaneous RxNorm: 7476924 Inject 30 Unit(s) Subcutaneous BID 02/10/20 24 024 Inactive Please dispense one month supply. pregabalin 100 mg capsule RxNorm: 722187 Take 1 Capsule(s) Oral QAM every morning 02/07/20 24 024 Inactive isosorbide mononitrate ER 60 mg tablet,extended release 24 hr RxNorm: 826475 Take 1 Tablet(s) Oral QD 02/01/20 24 025 Active aripiprazole 15 mg tablet RxNorm: 198792 Take 1/2 Tablet(s) Oral QD 02/01/20 24 09/11/2 025 Active torsemide 20 mg tablet RxNorm: 284236 1 TAB ORALLY DAILY (DX: EDEMA) 01/27/20 No Stop Date Active potassium chloride ER 20 mEq tablet,extended release(part/cryst) RxNorm: 5743763 2 TABS (40MEQ) ORALLY TWICE DAILY (DX: HYPOKALEMIA) 01/27/20 24 Inactive cephalexin 500 mg capsule RxNorm: 180802 Take 1 Capsule(s) Oral QID 12/17/19 24 Inactive cephalexin 500 mg capsule RxNorm: 155154 Take 1 Capsule(s) Oral QID 12/17/19 24 024 Inactive acetaminophen 500 mg tablet RxNorm: 309012 (MAX APAP:4GM/24HR) Take 1 Tablet(s) Oral TID as needed for pain 12/10/19 24 Inactive torsemide 20 mg tablet RxNorm: 285461 Take 1 Tablet(s) Oral QD 10/26/19 24 Inactive potassium chloride ER 20 mEq tablet,extended release RxNorm: 380901 Take 2 Tablet(s) Oral BID 10/26/19 24 Inactive torsemide 20 mg tablet RxNorm: 701437 Take 1 Tablet(s) Oral QD 10/26/19 24 Inactive potassium chloride ER 20 mEq tablet,extended release RxNorm: 125257 Take 2 Tablet(s) Oral BID 10/26/19 24 Inactive Artificial Tears (PF) 0.1 %-0.3 % drops in a dropperette RxNorm: 020965 Apply 1-2 Drop(s) Both eyes BID as needed 09/28/19 24 Inactive erythromycin 5 mg/gram (0.5 %) eye ointment RxNorm: 320058 Apply 1 Application Both eyes QHS every night at bedtime Instill ~1 cm ribbon into affected eye 09/28/19 24 Inactive Artificial Tears (PF) 0.1 %-0.3 % drops in a dropperette RxNorm: 036775 Apply 1-2 Drop(s) Both eyes BID as needed 09/28/19 24 Inactive erythromycin 5 mg/gram (0.5 %) eye ointment RxNorm: 262707 Apply 1 Application Both eyes QHS every night at bedtime Instill ~1 cm ribbon into affected eye 09/28/19 24 024 Inactive acetaminophen 500 mg tablet RxNorm: 898066 (MAX APAP:4GM/24HR) Take 1 Tablet(s) Oral TID as needed for pain 09/24/19 24 024 Inactive carvedilol 25 mg tablet RxNorm: 916493 Take 1 Tablet(s) Oral QD 09/08/19 24 No Stop Date Active pregabalin 100 mg capsule RxNorm: 954093 Take 1 Capsule(s) Oral QAM every morning 09/07/19 24 024 Inactive bisacodyl 10 mg rectal suppository RxNorm: 784848 Insert 1 Suppository Rectal QD as needed 07/13/19 24 No Stop Date Active ketoconazole 2 % shampoo RxNorm: 967397 Apply 1 Application Topical UD as directed 07/13/19 24 No Stop Date Active Ozempic 1 mg/dose (4 mg/3 mL) subcutaneous pen injector RxNorm: 6865842 Inject 1 Milligram(s) Subcutaneous QW once a week 07/13/19 24 No Stop Date Active Guaifenesin AC 10 mg-100 mg/5 mL oral liquid RxNorm: 311631 Take 10 Milliliter(s) Oral Q4H every four hours as needed 07/13/19 24 No Stop Date Active hydrocortisone 2.5 % topical cream RxNorm: 469898 Apply 1 Application Topical BID as needed 07/13/19 24 No Stop Date Active rosuvastatin 40 mg tablet RxNorm: 507405 Take 1 Tablet(s) Oral QPM every evening 07/13/19 24 024 Inactive ezetimibe 10 mg tablet RxNorm: 982279 Take 1 Tablet(s) Oral QD 07/13/19 24 025 Inactive polyethylene glycol 3350 17 gram/dose oral powder RxNorm: 751761 Take 17 Gram(s) Oral BID as needed mix in 4-8ox water 07/13/19 24 025 Inactive aripiprazole 15 mg tablet RxNorm: 104362 Take 1/2 Tablet(s) Oral QD 07/13/19 24 024 Inactive isosorbide mononitrate ER 60 mg tablet,extended release 24 hr RxNorm: 697523 Take 1 Tablet(s) Oral QD 07/13/19 24 024 Inactive ammonium lactate 12 % topical cream RxNorm: 768594 Apply 1 Application Topical BID 07/13/19 24 025 Inactive rosuvastatin 20 mg sprinkle capsule RxNorm: 5794914 Take 1 Capsule(s) Oral QD 07/13/19 24 025 Inactive Vascepa 1 gram capsule RxNorm: 7232039 Take 2 Capsule(s) Oral BID 07/13/19 24 024 Inactive venlafaxine ER 75 mg capsule,extended release 24 hr RxNorm: 539985 Take 3 Capsule(s) Oral QD 07/13/19 24 024 Inactive Basaglar KwikPen U-100 Insulin 100 unit/mL (3 mL) subcutaneous RxNorm: 3039551 Inject 30U SubQ twice daily 07/07/19 24 024 Inactive Please dispense one month supply. Basaglar KwikPen U-100 Insulin 100 unit/mL (3 mL) subcutaneous RxNorm: 9614152 Inject 30U SubQ twice daily 07/07/19 24 024 Inactive Please dispense one month supply. pregabalin 150 mg capsule RxNorm: 773072 Take 1 Capsule(s) Oral QHS every night at bedtime 07/05/19 24 024 Inactive pregabalin 150 mg capsule RxNorm: 662299 Take 1 Capsule(s) Oral QHS every night at bedtime 07/05/19 24 024 Inactive polyethylene glycol 3350 17 gram/dose oral powder RxNorm: 922272 Take 1 Packet Oral QD as needed (1 packet = 17g) mix with 4-8oz of liquid 06/15/19 24 024 Inactive bisacodyl 10 mg rectal suppository RxNorm: 463400 Insert one suppository per rectum once daily as needed for constipation 06/15/19 24 024 Inactive bisacodyl 10 mg rectal suppository RxNorm: 011597 Insert one suppository per rectum once daily as needed for constipation 06/15/19 24 024 Inactive pregabalin 100 mg capsule RxNorm: 603454 Take 1 Capsule(s) Oral QAM every morning 04/27/20 024 Inactive Levemir FlexPen 100 unit/mL (3 mL) solution subcutaneous insulin pen RxNorm: 544074 Inject 30 Unit(s) Subcutaneous BID 04/27/20 024 Inactive rosuvastatin 40 mg tablet RxNorm: 814375 Take 1 Tablet(s) Oral QPM every evening 04/16/20 024 Inactive D/C rosuvastatin 20mg venlafaxine ER 75 mg capsule,extended release 24 hr RxNorm: 040895 Take 3 Capsule(s) Oral QD 04/14/20 023 Inactive pregabalin 100 mg capsule RxNorm: 629939 Take 1 Capsule(s) Oral QAM every morning [...] strip clotrimazole 1 % topical cream RxNorm: 406575 Take apply topically to abdominal folds twice daily for 14 days 03/12/20 024 Inactive Ozempic 1 mg/dose (4 mg/3 mL) subcutaneous pen injector RxNorm: 8034988 Inject 1 Milligram(s) Subcutaneous QW once a week 03/11/20 23 023 Inactive rosuvastatin 20 mg tablet RxNorm: 823388 Take 1 Tablet(s) Oral QD 02/26/20 023 Inactive d/c pravastatin 80mg Ozempic 1 mg/dose (4 mg/3 mL) subcutaneous pen injector RxNorm: 8085253 Inject 1 Milligram(s) Subcutaneous QW once a week 02/20/20 23 023 Inactive pregabalin 150 mg capsule RxNorm: 083257 Take 1 Capsule(s) Oral HS at bed time 02/19/20 23 023 Inactive pregabalin 100 mg capsule RxNorm: 373967 Take 1 Capsule(s) Oral QAM every morning 02/18/20 23 023 Inactive venlafaxine ER 75 mg capsule,extended release 24 hr RxNorm: 179318 Take 3 Capsule(s) Oral QD 02/04/20 023 Inactive FreeStyle Chema 2 Sensor kit RxNorm: use as directed 02/04/20 23 023 Inactive FreeStyle Chema 2 Sensor kit RxNorm: use as directed 02/04/20 024 Inactive fluconazole 150 mg tablet RxNorm: 928619 Take 1 Tablet(s) Oral on day 3 and on day 6 02/03/20 024 Inactive venlafaxine ER 150 mg capsule,extended release 24 hr RxNorm: 861882 Take 1 Capsule(s) Oral QD 02/03/20 23 023 Inactive chlorthalidone 25 mg tablet RxNorm: 021689 Take 1 Tablet(s) Oral QAM every morning 02/03/20 23 024 Inactive acetaminophen 500 mg tablet RxNorm: 792478 1 TABLET ORALLY 3 TIMES DAILY (MAX APAP:4GM/24HR) 12/15/19 23 023 Inactive potassium chloride ER 20 mEq tablet,extended release RxNorm: 047955 Take 1 Tablet(s) Oral BID 12/09/19 23 024 Inactive d/c 20mEq once daily (sent from hospital) clotrimazole 1 % topical cream RxNorm: 478153 apply 1g topically to top of feet and in between toes BID 12/09/19 23 025 Inactive nystatin 100,000 unit/gram topical powder RxNorm: 434415 APPLY TO AFFECTED AREAS TOPICALLY 2 TIMES DAILY 11/21/19 23 023 Inactive Nystop 100,000 unit/gram topical powder RxNorm: 246832 Apply to abd folds, under breasts and L side of groin Topical BID x 14 days, then BID PRN 11/20/19 023 Inactive dx: yeast dermatitis [place] Ultra Strength 4 %-30 %-10 % topical cream RxNorm: 138382 Apply 1 Gram(s) Topical QID PRN to feet and legs for neuropathic pain 11/11/19 024 Inactive clotrimazole 1 % topical cream RxNorm: 330440 Apply 1/2 Gram(s) Topical BID Apply to affected areas of groin, periarea, and abdominal topically 2 times daily 11/10/19 23 023 Inactive hydrocortisone 2.5 % topical cream RxNorm: 149485 Apply 1/2 Gram(s) Topical BID as needed 11/10/19 024 Inactive Levemir FlexPen 100 unit/mL (3 mL) solution subcutaneous insulin pen RxNorm: 393303 Inject 30 Unit(s) Subcutaneous BID 10/07/19 023 Inactive Humulin R U-500 (Concentrated) Insulin 500 unit/mL subcutaneous soln RxNorm: 063643 Inject 100 Unit(s) Subcutaneous TID 10/07/19 024 Inactive Ozempic 0.25 mg or 0.5 mg (2 mg/3 mL) subcutaneous pen injector RxNorm: 9982425 Inject 1/2 Milligram(s) Subcutaneous QW once a week 10/07/19 024 Inactive aripiprazole 15 mg tablet RxNorm: 509519 1/2 TAB (7.5MG) ORALLY DAILY (DX:MAJOR DEPRESSIVE DISORDER) 09/23/19 023 Inactive Accu-Chek Guide test strips RxNorm: Use 1 Test Strip QID 09/15/19 23 023 Inactive ok to substitute with any covered alternative test strip Lancets,Thin 28 gauge RxNorm: Use 1 as directed QID 09/15/19 23 023 Inactive torsemide 20 mg tablet RxNorm: 666744 Take 1 Tablet(s) Oral BID 09/09/19 23 024 Inactive d/c once daily dosing carvedilol 25 mg tablet RxNorm: 832406 Take 1 Tablet(s) Oral QD 08/25/19 23 024 Inactive pregabalin 150 mg capsule RxNorm: 115232 1 Capsule(s) Oral HS at bed time 08/18/19 23 023 Inactive pregabalin 100 mg capsule RxNorm: 148901 1 Capsule(s) Oral QAM every morning 08/18/19 23 023 Inactive carvedilol 25 mg tablet RxNorm: 731551 1 Tablet(s) Oral QD 07/28/19 23 023 Inactive lisinopril 20 mg tablet RxNorm: 653654 Give 1 Tablet(s) Oral QD 07/28/19 23 023 Inactive Lyrica 150 mg capsule RxNorm: 806840 Take 1 Capsule(s) Oral QHS every night at bedtime 07/19/19 23 023 Inactive d/c 100mg dose Diflucan 150 mg tablet RxNorm: 958319 Take 1 Tablet(s) Oral QD repeat on day 3 and 6 07/19/19 23 023 Inactive pregabalin 100 mg capsule RxNorm: 258740 Take 1 Capsule(s) Oral QAM every morning 07/19/19 23 023 Inactive gatifloxacin 0.5 % eye drops RxNorm: 786792 Instill 1 Drop(s) as directed TID Instill 1 drop in to affected eye(s) starting 1 day prior to surgery and continue until gone (do not exceed 4 weeks). 07/13/19 023 Inactive carvedilol 25 mg tablet RxNorm: 760042 2 Tablet(s) Oral BID 07/13/19 23 023 Inactive Humulin R Regular U-100 Insulin 100 unit/mL injection solution RxNorm: 691562 85 Unit(s) Injection TID 07/13/19 23 023 Inactive ketorolac 0.5 % eye drops RxNorm: 556545 Instill 1 Drop(s) as directed QID Instill 1 drop into affected eye(s) 4 times daily starting 1 day prior to surgery and continue until gone (do not exceed 4 weeks). 07/13/19 23 023 Inactive Diflucan 150 mg tablet RxNorm: 226726 Take 1 Tablet(s) Oral QD repeat on day 3 and 6 06/30/19 23 023 Inactive Accu-Chek Guide test strips RxNorm: Use 1 Test Strip QID Use 1 test strip to monitor blood glucose 4 times daily and as needed. Dx:E11.42. 06/23/19 023 Inactive ok to substitute with any covered alternative test strip dextromethorphan-gu aifenesin 10 mg-100 mg/5 mL oral liquid RxNorm: 541129 Take 10 Milliliter(s) Oral every 4 hours as needed for cough 06/19/19 023 Inactive dextromethorphan-gu aifenesin 10 mg-100 mg/5 mL oral liquid RxNorm: 055585 Take 10 Milliliter(s) Oral every 4 hours as needed for cough 06/19/19 023 Inactive Lyrica 150 mg capsule RxNorm: 462539 Take 1 Capsule(s) Oral QHS every night at bedtime 06/18/19 023 Inactive d/c 100mg dose aripiprazole 15 mg tablet RxNorm: 588121 1/2 TAB (7.5MG) ORALLY DAILY (DX:MAJOR DEPRESSIVE DISORDER) 06/05/19 023 Inactive pregabalin 100 mg capsule RxNorm: 196269 1 Capsule(s) Oral QAM every morning 06/02/19 023 Inactive Banophen 50 mg capsule RxNorm: 8137918 Take 1 Capsule(s) Oral Q6H every 6 hours as needed 05/19/19 23 No Stop Date Active Novolog Flexpen U-100 Insulin aspart 100 unit/mL (3 mL) subcutaneous RxNorm: 6335920 Inject 10 Unit(s) Subcutaneous QHS every night at bedtime with nighttime snack 04/08/20 22 022 Inactive Novolog Flexpen U-100 Insulin aspart 100 unit/mL (3 mL) subcutaneous RxNorm: 1188269 Inject 42 Unit(s) Subcutaneous TID in addition to sliding scale 04/08/20 22 022 Inactive d/c 36u albuterol sulfate HFA 90 mcg/actuation aerosol inhaler RxNorm: 1426301 Take 2 Puff(s) Inhalation Q4H every four hours as needed as needed for SOB, cough, or wheezing 04/07/20 030 Active Banophen 50 mg capsule RxNorm: 0276677 Take 1 Capsule(s) Oral Q6H every 6 hours as needed 04/06/20 023 Inactive diphenhydramine 50 mg tablet RxNorm: 4491057 Take 1 Tablet(s) Oral Q6H every 6 hours as needed 04/06/20 022 Inactive diphenhydramine 50 mg tablet RxNorm: 8338493 1 Tablet(s) Oral Q6H every 6 hours as needed 04/06/20 022 Inactive Abilify 15 mg tablet RxNorm: 024524 1/2 Tablet(s) Oral QD 03/10/20 023 Inactive Shingrix (PF) 50 mcg/0.5 mL intramuscular suspension, kit RxNorm: 1227490 Administer 1/2 Milliliter(s) Intramuscular QD one time shingrix step 2 ( step 1 given 11/04/21) WITH needle - Nursing please administer upon arrival and once administered post a bridge message with date of administration, bankruptcy law specialist, expiration date, and lot# so we can update [facility] 02/18/20 22 022 Inactive dispense with needle Shingrix (PF) 50 mcg/0.5 mL intramuscular suspension, kit RxNorm: 9800212 Administer 1/2 Milliliter(s) Intramuscular QD one time shingrix step 2 ( step 1 given 11/04/21) WITH needle - Nursing please administer upon arrival and once administered post a bridge message with date of administration, bankruptcy law specialist, expiration date, and lot# so we can update [facility] 02/18/20 22 022 Inactive dispense with needle Lyrica 100 mg capsule RxNorm: 389820 Take 1 Capsule(s) Oral QAM every morning 01/08/20 22 022 Inactive d/c 50mg dose acetaminophen 500 mg tablet RxNorm: 606864 Take 1 Tablet(s) Oral TID 01/08/20 22 022 Inactive d/c PRN order Lyrica 150 mg capsule RxNorm: 262333 Take 1 Capsule(s) Oral QHS every night at bedtime 01/08/20 22 023 Inactive d/c 100mg dose polyethylene glycol 3350 17 gram/dose oral powder RxNorm: 205711 Take 17=1 capful Gram(s) Oral QD mix with 4-8oz of liquid 01/08/20 22 025 Inactive take this in addition to BID prn order Abilify 5 mg tablet RxNorm: 772266 Take 1 Tablet(s) Oral QD take 1 tab po QD #30 refill 5 dx: MDD 12/12/19 22 022 Inactive Abilify 5 mg tablet RxNorm: 672659 Take 1 Tablet(s) Oral QD take 1 tab po QD #30 refill 5 dx: MDD 12/12/19 22 022 Inactive Novolog Flexpen U-100 Insulin aspart 100 unit/mL (3 mL) subcutaneous RxNorm: 1280668 Inject 42 Unit(s) Subcutaneous TID in addition to sliding scale 12/10/19 22 022 Inactive d/c 36u chlorthalidone 25 mg tablet RxNorm: 095287 Take 1 Tablet(s) Oral QAM every morning 12/10/19 22 023 Inactive pregabalin 50 mg capsule RxNorm: 557049 Take 1 Capsule(s) Oral QAM every morning 11/12/19 22 022 Inactive tetanus-diphtheria toxoids-Td 2 Lf unit-2 Lf unit/0.5 mL IM suspension RxNorm: 139 Take 0.5 Miscellaneous Intramuscular 11/12/19 22 022 Inactive need tdap - nursing to administer upon arrival pregabalin 50 mg capsule RxNorm: 963351 Take 1 Capsule(s) Oral QAM every morning 10/16/19 22 022 Inactive pregabalin 50 mg capsule RxNorm: 152814 Take 1 Capsule(s) Oral QAM every morning 10/16/19 22 022 Inactive pregabalin 50 mg capsule RxNorm: 816719 1 Capsule(s) Oral QAM every morning 10/15/19 22 022 Inactive Shingrix (PF) 50 mcg/0.5 mL intramuscular suspension, kit RxNorm: 7461865 Administer 1/2 Milliliter(s) Intramuscular one time Nursing please administer upon arrival and once administered post a bridge message with date of administration, bankruptcy law specialist, expiration date, and lot# so we can update [facility]IC. 10/09/19 22 022 Inactive shingrix step 1 Shingrix (PF) 50 mcg/0.5 mL intramuscular suspension, kit RxNorm: 9530162 Administer 1/2 Milliliter(s) Intramuscular one time Nursing please administer upon arrival and once administered post a bridge message with date of administration, bankruptcy law specialist, expiration date, and lot# so we [...] aspart 100 unit/mL (3 mL) subcutaneous RxNorm: 3629900 Inject 10 Unit(s) Subcutaneous QHS every night at bedtime with nighttime snack 10/08/19 22 Inactive Shingrix (PF) 50 mcg/0.5 mL intramuscular suspension, kit RxNorm: 1718017 ADMINISTER 2-DOSE SERIES PER CDC GUIDELINES 10/08/19 22 Active Shingrix (PF) 50 mcg/0.5 mL intramuscular suspension, kit RxNorm: 7942923 ADMINISTER 2-DOSE SERIES PER CDC GUIDELINES 10/08/19 22 022 Inactive Novolog Flexpen U-100 Insulin aspart 100 unit/mL (3 mL) subcutaneous RxNorm: 2885293 Inject 36 Unit(s) Subcutaneous TID in addition to sliding scale 10/08/19 22 022 Inactive cholecalciferol (vitamin D3) 1,250 mcg (50,000 unit) capsule RxNorm: 941170 Take 1 Capsule(s) Oral QW once a week 10/08/19 22 024 Inactive Novofine Autocover 30 gauge x 1/3 needle RxNorm: Use 1 Miscellaneous UD as directed Use 1 needle as directed to administer insulin 5 times a day Dx:E11.42. 10/03/19 22 022 Inactive ok to substitute with any covered alternative pen needle benzoyl peroxide 10 % topical cleanser RxNorm: 451108 Apply 1 Application Topical QD apply to face, wash rinse and dry once daily (may change to QOD if drying) 08/19/19 22 022 Inactive (%covered by insurance) #60ml refill 11 dx: acne benzoyl peroxide 10 % topical cleanser RxNorm: 856403 Apply 1 Application Topical QD apply to face, wash rinse and dry once daily (may change to QOD if drying) 08/19/19 22 022 Inactive (%covered by insurance) #60ml refill 11 dx: acne benzoyl peroxide 10 % topical cleanser RxNorm: 766025 Apply 1 Application Topical QD apply to face, wash rinse and dry once daily (may change to QOD if drying) 08/19/19 22 022 Inactive (%covered by insurance) #60ml refill 11 dx: acne Lyrica 50 mg capsule RxNorm: 769915 Take 1 Capsule(s) Oral QAM every morning Take 1 capsule by mouth once daily 08/19/19 22 022 Inactive benzoyl peroxide 10 % topical cleanser RxNorm: 372703 Apply 1 Application Topical QD apply to face, wash rinse and dry once daily (may change to QOD if drying) 08/19/19 022 Inactive (%covered by insurance) #60ml refill 11 dx: acne Lyrica 100 mg capsule RxNorm: 682704 Take 1 Capsule(s) Oral QHS every night at bedtime Take 1 capsule by mouth once daily at bedtime 08/19/19 22 022 Inactive Lyrica 100 mg capsule RxNorm: 824073 Take 1 Capsule(s) Oral QHS every night at bedtime Take 1 capsule by mouth once daily at bedtime 08/16/19 22 022 Inactive Lyrica 50 mg capsule RxNorm: 989025 Take 1 Capsule(s) Oral QAM every morning Take 1 capsule by mouth once daily 08/16/19 22 022 Inactive Levemir FlexTouch U-100 Insulin 100 unit/mL (3 mL) subcutaneous pen RxNorm: 377809 Inject 86 Unit(s) Subcutaneous BID 08/05/19 22 022 Inactive d/c 83units BID Lyrica 100 mg capsule RxNorm: 936288 Take 1 Capsule(s) Oral QHS every night at bedtime Take 1 capsule by mouth once daily at bedtime 07/14/19 22 022 Inactive Lyrica 50 mg capsule RxNorm: 610370 Take 1 Capsule(s) Oral QAM every morning Take 1 capsule by mouth once daily 07/14/19 22 022 Inactive Levemir FlexTouch U-100 Insulin 100 unit/mL (3 mL) subcutaneous pen RxNorm: 337825 Inject 83 Unit(s) Subcutaneous BID 07/08/19 22 [...] test strip hydralazine 50 mg tablet RxNorm: 433928 Take 1 Tablet(s) Oral QID 05/05/20 21 022 Inactive venlafaxine ER 225 mg tablet,extended release 24 hr RxNorm: 049643 Take 1 Tablet(s) Oral QD 05/05/20 21 Inactive venlafaxine ER 225 mg tablet,extended release 24 hr RxNorm: 221891 Take 1 Tablet(s) Oral QD 05/05/20 022 Inactive isosorbide mononitrate ER 30 mg tablet,extended release 24 hr RxNorm: 184372 Take 1 Tablet(s) Oral QD 05/05/20 024 Inactive hydralazine 50 mg tablet RxNorm: 930761 Take 1 Tablet(s) Oral QID 05/05/20 21 Inactive aspirin 81 mg tablet,delayed release RxNorm: 473488 Take 1 Tablet(s) Oral QD 03/31/20 022 Inactive Vitamin D2 1,250 mcg (50,000 unit) capsule RxNorm: 5867284 Take 1 Capsule(s) Oral QW once a week x 12 weeks 03/31/20 022 Inactive Vitamin D2 1,250 mcg (50,000 unit) capsule RxNorm: 0940238 Take 1 Capsule(s) Oral QW once a week 03/31/20 021 Inactive Zetia 10 mg tablet RxNorm: 100981 Take 1 Tablet(s) Oral QD 03/31/20 024 Inactive Zetia 10 mg tablet RxNorm: 858890 Take 1 Tablet(s) Oral QD 03/31/20 021 Inactive hydralazine 25 mg tablet RxNorm: 397510 Take 1 Tablet(s) Oral QID 03/31/20 021 Inactive hydralazine 25 mg tablet RxNorm: 642577 Take 1 Tablet(s) Oral QID 03/31/20 021 Inactive hydralazine 10 mg tablet RxNorm: 594626 Take 1 Tablet(s) Oral QID 03/03/20 021 Inactive cephalexin 500 mg tablet RxNorm: 384786 Take 1 Tablet(s) Oral QID 02/27/20 021 Inactive cephalexin 500 mg tablet RxNorm: 576421 Take 1 Tablet(s) Oral QID 02/27/20 021 Inactive lisinopril 40 mg tablet RxNorm: 757353 Take 1 Tablet(s) Oral QD 02/11/20 023 Inactive Eliquis 5 mg tablet RxNorm: 7425208 Take 1 Tablet(s) Oral BID 01/05/20 21 025 Inactive Eliquis 5 mg tablet RxNorm: 8082359 Take 2 Tablet(s) Oral QD 01/01/20 21 021 Inactive Lyrica 50 mg capsule RxNorm: 757822 Take 1 Capsule(s) Oral QAM every morning 12/24/19 21 021 Inactive Lyrica 100 mg capsule RxNorm: 616475 Take 1 Capsule(s) Oral QHS every night at bedtime 12/24/19 21 021 Inactive clotrimazole 1 % topical cream RxNorm: 106415 Apply to right foot and toes Topical BID 12/04/19 21 023 Inactive metoprolol succinate ER 200 mg tablet,extended release 24 hr RxNorm: 763687 Take 1 Tablet(s) Oral QD 12/04/19 21 023 Inactive ciprofloxacin 500 mg tablet RxNorm: 590874 Take 1 Tablet(s) Oral QD 11/30/19 21 021 Inactive DX ofloxacin otic drops Accu-Chek Guide test strips RxNorm: USE 1 TO CHECK GLUCOSE 4 TIMES DAILY AND NEEDED 11/15/19 21 023 Inactive Blood Glucose Test strips RxNorm: Use 1 Test Strip QID at PRN 11/05/19 21 023 Inactive E11.42 lisinopril 30 mg tablet RxNorm: 287780 Take 1 Tablet(s) Oral QD 10/30/19 21 021 Inactive lisinopril 20 mg tablet RxNorm: 224563 Take 1 Tablet(s) Oral QD 10/23/19 21 021 Inactive lisinopril 20 mg tablet RxNorm: 972201 Take 1 Tablet(s) Oral QD 10/23/19 21 021 Inactive lisinopril 10 mg tablet RxNorm: 077227 Take 1 Tablet(s) Oral QD 10/02/19 21 021 Inactive icosapent ethyl 1 gram capsule RxNorm: 9629008 Take 2 Capsule(s) (2 gm) Oral BID with meals 09/12/19 21 024 Inactive Okay to dispense one 2gm tab if you have that available. icosapent ethyl 1 gram capsule RxNorm: 0657021 Take 2 Capsule(s) Oral BID 09/12/19 21 021 Inactive Okay to dispense one 2gm tab if you have that available. amlodipine 10 mg tablet RxNorm: 523582 Take 1 Tablet(s) Oral QD 09/04/19 21 021 Inactive aspirin 81 mg tablet,delayed release RxNorm: 821192 Take 1 Tablet(s) Oral QD 09/04/19 21 021 Inactive Levemir FlexTouch U-100 Insulin 100 unit/mL (3 mL) subcutaneous pen RxNorm: 392126 Inject 150 Unit(s) Subcutaneous BID 09/04/19 21 022 Inactive venlafaxine ER 150 mg tablet,extended release 24 hr RxNorm: 309570 Take 1 Tablet(s) Oral QD 09/04/19 21 021 Inactive clotrimazole-betame thasone 1 %-0.05 % topical cream RxNorm: 826789 Apply to rash on red area on left abdomen/chest Topical BID 08/10/19 21 021 Inactive amlodipine 5 mg tablet RxNorm: 851257 Take 1 Tablet(s) Oral QD 07/31/19 21 Inactive cephalexin 500 mg tablet RxNorm: 957658 Take 1 Tablet(s) Oral BID BID - Twice Daily 07/31/19 21 021 Inactive Start 08/01/20 pantoprazole 40 mg tablet,delayed release RxNorm: 273951 Take 1 Tablet(s) Oral QAM every morning 07/08/19 025 Inactive clopidogrel 75 mg tablet RxNorm: 219472 Take 1 Tablet(s) Oral QD 07/08/19 021 Inactive Blood Glucose Test strips RxNorm: Use 1 Test Strip QID at PRN 07/08/19 Inactive E11.42 senna 8.6 mg tablet RxNorm: 915337 Take 1 Tablet(s) Oral QD 07/08/19 025 Inactive Novolog Flexpen U-100 Insulin aspart 100 unit/mL (3 mL) subcutaneous RxNorm: 3223161 Administer per sliding scale Milliliter(s) Subcutaneous TID 151-200: 10 u; 201-250: 20 u; 251-300: 30 u; 301-350: 40 u; 351-400: 50 u. 07/08/19 21 022 Inactive lisinopril 5 mg tablet RxNorm: 020162 Take 1 Tablet(s) Oral QD 07/08/19 021 Inactive Novolog Flexpen U-100 Insulin aspart 100 unit/mL (3 mL) subcutaneous RxNorm: 0092001 Inject 85 Unit(s) Subcutaneous TID 07/08/19 21 022 Inactive pravastatin 80 mg tablet RxNorm: 142344 Take 1 Tablet(s) Oral QHS every night at bedtime 07/08/19 023 Inactive clotrimazole 1 % topical cream RxNorm: 080603 Apply to bilateral groin areas Topical BID 07/08/19 21 022 Inactive metoprolol succinate ER 200 mg tablet,extended release 24 hr RxNorm: 528696 Take 1 Tablet(s) Oral QD 07/08/19 021 Inactive Vitamin D3 25 mcg (1,000 unit) tablet RxNorm: 428782 Take 1 Tablet(s) Oral QD 07/08/19 21 021 Inactive isosorbide dinitrate 30 mg tablet RxNorm: 806411 Take 1 Tablet(s) Oral QD 07/08/19 21 021 Inactive carbamazepine 200 mg tablet RxNorm: 693467 Take 1 Tablet(s) Oral BID 07/08/19 21 025 Inactive Levemir FlexTouch U-100 Insulin 100 unit/mL (3 mL) subcutaneous pen RxNorm: 192288 Inject 140 Unit(s) Subcutaneous BID 07/08/19 21 021 Inactive torsemide 20 mg tablet RxNorm: 802635 Take 1 Tablet(s) Oral QD 07/08/19 21 023 Inactive venlafaxine 75 mg tablet RxNorm: 829542 Take 1 Tablet(s) Oral QD 07/08/19 021 Inactive acetaminophen 500 mg tablet RxNorm: 290582 Take 1 Tablet(s) Oral TID as needed for headache 06/18/19 21 021 Inactive acetaminophen 500 mg tablet RxNorm: 929142 Take 1 Tablet(s) Oral TID as needed for headache 06/18/19 21 021 Inactive Lyrica 100 mg capsule RxNorm: 461509 Take 1 Capsule(s) Oral QHS every night at bedtime 06/11/19 021 Inactive Lyrica 50 mg capsule RxNorm: 177095 Take 1 Capsule(s) Oral QAM every morning 06/10/19 21 021 Inactive hydrocortisone 2.5 % topical cream RxNorm: 338095 Apply to bilateral groin creases Topical BID 05/15/20 20 021 Inactive clotrimazole 1 % topical cream RxNorm: 070803 Apply to bilateral groin areas Topical BID 05/15/20 20 021 Inactive Lyrica 50 mg capsule RxNorm: 955439 Take 1 Capsule(s) Oral QAM every morning 05/14/20 20 020 Inactive Lyrica 100 mg capsule RxNorm: 860311 Take 1 Capsule(s) Oral QHS every night [...] Inactive Nystop 100,000 unit/gram topical powder RxNorm: 431490 Apply to abd folds, under breasts and L side of groin Topical BID x 14 days, then BID PRN 04/08/20 20 Inactive dx: yeast dermatitis Lyrica 100 mg capsule RxNorm: 129646 Take 1 Capsule(s) Oral QHS every night at bedtime 03/13/20 20 Inactive Lyrica 50 mg capsule RxNorm: 380316 Take 1 Capsule(s) Oral QAM every morning 03/13/20 20 Inactive ketoconazole 2 % shampoo RxNorm: 917808 Apply Topical two times a week with showers 03/11/20 20 024 Inactive cholecalciferol (vitamin D3) 50 mcg (2,000 unit) tablet RxNorm: 950131 Take 1 Tablet(s) Oral QD 03/11/20 20 021 Inactive Zetia 10 mg tablet RxNorm: 497376 Take 1 Tablet(s) Oral QD 03/07/20 20 021 Inactive Zetia 10 mg tablet RxNorm: 767158 Take 1 Tablet(s) Oral QD 03/07/20 20 Inactive Lyrica 50 mg capsule RxNorm: 300760 Take 1 Capsule(s) Oral QAM every morning 02/15/20 20 Inactive Lyrica 100 mg capsule RxNorm: 358773 Take 1 Capsule(s) Oral QHS every night at bedtime 02/15/20 20 Inactive Lyrica 100 mg capsule RxNorm: 114304 Take 1 Capsule(s) Oral QHS every night at bedtime 02/15/20 20 020 Inactive Lyrica 50 mg capsule RxNorm: 756311 Take 1 Capsule(s) Oral QAM every morning 02/15/20 20 020 Inactive venlafaxine ER 75 mg capsule,extended release 24 hr RxNorm: 701150 Take 3 Capsule(s) Oral QD 06/12/19 22 023 Inactive polyethylene glycol 3350 17 gram/dose oral powder RxNorm: 319450 Take 17=1 capful Gram(s) Oral BID as needed mix with 4-8oz of liquid 06/12/19 22 024 Inactive icosapent ethyl 1 gram capsule RxNorm: 9663646 Take 2 Capsule(s) (2 gm) Oral BID with meals 10/07/19 23 023 Inactive Okay to dispense one 2gm tab if you have that available. Levemir FlexTouch U-100 Insulin 100 unit/mL (3 mL) subcutaneous pen RxNorm: 221965 Inject 80 Unit(s) Subcutaneous BID 07/14/19 23 023 Inactive metoprolol succinate ER 200 mg tablet,extended release 24 hr RxNorm: 230611 Take 1 Tablet(s) Oral QD 08/12/19 23 025 Inactive loperamide 2 mg capsule RxNorm: 878724 Take 1 Capsule(s) Oral QID as needed 09/06/19 25 025 Inactive hydralazine 50 mg tablet RxNorm: 653840 Take 1 Tablet(s) Oral QID 08/12/19 23 025 Inactive Soft Touch Lancets RxNorm: miscellaneous 03/04/20 24 025 Inactive Novolog Flexpen U-100 Insulin aspart 100 unit/mL (3 mL) subcutaneous RxNorm: 7783612 Insert 30 Unit(s) Subcutaneous TID with meals [...] Status Date Patient Education: Patient Medication Summary Fgzlujfeh66/17/2025Referral: [facility] [address] [facility] [place]ReferralNo Records Clulzclm20/06/2025ppointment: Harrison Munson WPtel: [address] [facility] 300 [id number] USF/U008/08/2024ppointment: Harrison Munson WPtel: [address] [facility] 300 [id number] USF/U007/11/2024Referral: [facility] [place]/Endocrinology WPtel: [address] [facility] 3 [id number] USReferralNo Records Niavydge56/24/2025ppointment: Harrison Munson WPtel: [address] [facility] 300 [id number] [facility], ROSWELLV02/08/2024ppointment: Harrison Munson WPtel: [address] [place] [address] 300 [id number] USF/U001/11/2024ppointment: Sandra Clark WPtel: [address] [place] [address] 300 [id number] [facility] Psych Follow Up12/09/2022ppointment: Tapan Shirley WPtel: [address] [place] [address] 300 [id number] [facility]10/26/2022Referral: [facility] WPtel: [address], [address] [id number] USReferralRecords Asnjfdrn84/08/2023ppointment: Tapan Shirley WPtel: [address] [facility] 300 [id number] [place]/U008/11/2022ppointment: Tapan Shirley WPtel: [address] [facility] 300 [id number] [facility]/U007/14/2022ppointment: Tapan Shirley WPtel: [address] [facility] [address] [id number] USF/U02Referral: [facility] WPtel: [address] [facility] [address] [id number] EIXtwwdclrGpksqrzbr59/12/2022Referral: General CardiologyReferralCompleted 1Referral: General PsychologistReferralClosedReferral: General PsychiatristReferralPatient/Family [...] Sister Jyotsna involved in his care cell# [phone] Guardian: Giulia (tapan met in person 09/01/21), [...]
--- OUTSIDE RECORDS SUMMARY | 2025-01-30 20:53 | XMS_ITS | CCD ---
Author Organization Unknown Care Team Providers Care Coffee Sampler Name Role Phone Harrison Durham Primary Care Provider Leona vailable Unavailable Chronic Care Management Unavaila ble Summary Purpose DataExchange Insurance Providers Payer name Policy type / Coverage type Covered libertarian ID Effective Begin Date Effective End Date [place] Part B [id number] Unknown Unknown Medicaid [place] Medicare [place] B [id number] Unknown Unknown Family history Sister Brittany Suggs [...] on file 07/11/[address]: 324927475 Never smoker 01/16 Sexually Active? Unknown No [...] Unknown Long-Term 09/03/[address]: 049678730 No Alcohol Consum ption 09/02/2020 Allergies, Adverse Reactions, Alerts Substance Reaction Codes Entered Date Inactivated Date Status * NO KNOWN FOOD ALLERGIES Isehfru3607/13/2023No Inactive DateActiveLISINOPRILRxNorm: 677445202/12/2020No Inactive DateActiveMetformin RWxQlwmuwv72/28/2020No Inactive DateActive* NO KNOWN ENVIRONMENTAL [id number]/27/2024No Inactive DateActive Problems Condition Codes Effective Dates Condition St atus CKD stage 3a, GFR 45-59 ml/min SNOMED CT : 753919539 ICD-10: N18.31 ICD-9: 585.308/5ActiveHypertensive heart disease without heart failureICD- 10: I11.9 ICD-9: 402.9008/5ActiveOnychogryposisICD-10: L60.2 ICD-9: 703.808/5ActiveType 2 diabetes mellitus with diabetic chronic kidney diseaseICD-10: E11.22 ICD-9: 250.4008/5ActiveBody mass index [BMI] 60.0-69.9, adultICD-10: Z68.44 ICD-9: V85.44085ActiveHistory of recent hospitalizationSNOMED CT: 207958098 ICD-10: Z92.89 ICD-9: V13.908/5ActiveHypokalemiaICD-10: E87.6 ICD-9: 276.808/5ActiveMixed incontinenceSNOMED CT: 26759068 ICD-10: N39.46 ICD-9: 788.33085ActiveOSA (obstructive sleep apnea)SNOMED CT: 48415425 ICD-10: G47.33 ICD-9: 327.2308/5ActiveType 2 diabetes mellitus with diabetic polyneuropathy, with long-term current use of insulinICD-10: E11.42 ICD-9: 250.6008/5ActiveCandidal intertrigoICD-10: B37.2 ICD-9: 112.307/5ActivePulmonary noduleICD-10: R91.1 ICD-9: 793.11075ActiveConstipation by delayed colonic transitICD-10: K59.01 ICD-9: 564.0106/5ActiveLoose stoolsICD-10: R19.5 ICD-9: 787.706/5ActiveParaparesis of both lower limbsICD-10: G82.20 ICD-9: 344.106/5ActiveSeizure disorderICD-10: G40.909 ICD-9: 345.9006/5ActiveAmputated toe of right footICD-10: S98.131A ICD-9: 895.005/5ActiveHypercoagulable stateICD-10: D68.59 ICD-9: 289.8105/5ActiveLower extremity edemaICD-10: R60.0 ICD-9: 782.305/5ActiveMajor depression, recurrentICD-10: F33.9 ICD-9: 296.3005/5ActiveRecurrent major depressive disorder, in partial remissionICD-10: F33.41 ICD-9: 296.3505/5ActivePressure ulcer of left calf, unstageableICD-10: L89.890 ICD-9: 707.0905ResolvedDiabetic neuropathy associated with type 2 diabetes mellitusICD-10: E11.40 ICD-9: 250.6002/5ActiveHemorrhoidsICD-10: K64.9 ICD-9: 455.602/5ActivePVD (peripheral vascular disease)ICD-10: I73.9 ICD-9: 443.902/5ActiveHyperlipidemia associated with type 2 diabetes mellitusICD-10: E11.69 ICD-9: 250.8001/5ActiveAdvance care planningICD-10: Z71.89 ICD-9: V65.4912/4ActiveLow back painICD-10: M54.50 ICD-9: 724.210/4ActivePhysical deconditioningICD-10: R53.81 ICD-9: 799.310/ctiveAdvanced care planning - to document end of life bvxqsfuujeyUrocctn80/24/2024ctiveAnnual physical examICD-10: Z00.00 ICD-9: V70.009ctiveHistory of anemia due to CKDICD-10: N18.9 ICD-9: 585.909/ctiveHx of deep venous thrombosisICD-10: Z86.718 ICD-9: V12.5109/ctiveLearning disabilityICD-10: F81.9 ICD-9: 315.209/ctiveReducible umbilical herniaICD-10: K42.9 ICD-9: 553.109/ctiveVitamin D deficiencyICD-10: E55.9 ICD-9: 268.909/ctiveCallus of heelICD-10: L84 ICD-9: 00026/esolvedGout due to renal impairmentICD-10: M10.30 ICD-9: 274.1005esolvedHyperhidrosis of palmsICD-10: L74.512 ICD-9: 705.21010/12/2023esolvedHyperlipidemia, unspecifiedICD-10: E78.5 ICD-9: 272.405esolvedOther fpc (current) drug therapyICD-10: Z79.899 ICD-9: V58.6905esolvedPain of right heelICD-10: M79.671 ICD-9: 729.505/esolvedStage 2 chronic kidney diseaseICD-10: N18.2 ICD-9: 585.205esolvedTinea pedis of both feetICD-10: B35.3 ICD-9: 110.405esolvedCellulitisICD-10: L03.90 ICD-9: 682.904/esolvedDandruff in adultICD-10: L21.0 ICD-9: 690.1804esolvedEncounter for other specified special examinationsICD-10: Z01.89 ICD-9: V72.8504/esolvedEncounter for screening for nutritional disorder ICD-10: Z13.21 ICD-9: V77.9904esolvedImpacted cerumen, left earICD-10: H61.22 ICD-9: 380.404/4ResolvedShortness of breathICD-10: R06.02 ICD-9: 786.0504/esolvedSkin tagICD-10: L91.8 ICD-9: 701.904/esolvedCoronary artery disease involving [place] coronary artery of [place] heart, angina presence unspecifiedICD-10: I25.10 ICD-9: 414.0102/4ActiveInappropriate sexual behaviorICD-10: Z72.89 ICD-9: 312.8910/ctivePre-op evaluationICD-10: Z01.818 ICD-9: V72.8403/ctiveSecondary hypertensionICD-10: I15.9 ICD-9: 405.9903ctiveDepressionICD-10: F32.9 ICD-9: 659332ResolvedDVT (deep venous thrombosis)ICD-10: I82.409 ICD-9: 453.40092ResolvedEncounter for [...] to other viral communicable diseasesICD-10: Z20.828 ICD-9: V01.7902/9435GhrotddxRlyjemygGgjaxdx72/28/2020ActiveDiabetes mellitus Type 5Mtacgvq58/28/2020ActiveAnemia in chronic kidney diseaseICD-10: D63.1 02/12/2020ResolvedHyperlipidemia, unspecifiedICD-10: E78.Resolved Medications Medication Codes Instructions Start Date Stop Date Status Fill Instructions pregabalin 150 mg capsule RxNorm: 393954 1 CAPSULE BY MOUTH AT BEDTIME (DX: NEUROPATHY) 01/13/20 25 026 Active PLEASE SEND NEW RX, PATIENT IS ALMOST OUT. THANKS! clotrimazole 1 % topical cream RxNorm: 193520 apply one application to affected and surrounding area(s) of skin BID until clinical resolution (abdominal and thigh folds), typically 1-4 weeks.Pause nystatin powder use while using clotrimazole cream. 01/03/20 25 025 Active clotrimazole 1 % topical cream RxNorm: 952392 apply one application to affected and surrounding area(s) of skin BID until clinical resolution (abdominal and thigh folds), typically 1-4 weeks. Pause nystatin powder use while using clotrimazole cream. 01/03/20 25 025 Inactive Culturelle 10 billion cell capsule RxNorm: 835693 Take 1 Capsule(s) Oral QD 11/08/19 25 026 Active Culturelle 10 billion cell capsule RxNorm: 807950 Take 1 Capsule(s) Oral QD 11/08/19 25 025 Inactive hydrocodone 5 mg-acetaminophen 325 mg tablet RxNorm: 597397 Take 1 Tablet(s) Oral Q4H every four hours as needed for pain PRN for severe acute dental pain 10/21/19 25 025 Inactive penicillin V potassium 500 mg tablet RxNorm: 860513 Take 1 Tablet(s) Oral QID Take until dental appointment per ER recommendation 10/21/19 25 025 Inactive hydrocodone 5 mg-acetaminophen 325 mg tablet RxNorm: 769496 Take 1 Tablet(s) Oral Q4H every four hours as needed for pain PRN for severe acute dental pain 10/21/19 25 025 Inactive penicillin V potassium 500 mg tablet RxNorm: 914243 Take 1 Tablet(s) Oral QID Take until dental appointment per ER recommendation 10/21/19 25 025 Inactive potassium chloride ER 20 mEq tablet,extended release RxNorm: 584945 Take 2 Tablet(s) Oral TID (dx: hypokalemia) 09/14/19 25 026 Active potassium chloride ER 20 mEq tablet,extended release RxNorm: 017271 Take 2 Tablet(s) Oral TID (dx: hypokalemia) 09/14/19 25 Inactive loperamide 2 mg tablet RxNorm: 963016 Take 2 Tablet(s) Oral UD as directed [...] Date Active senna 8.6 mg tablet RxNorm: 142457 Take 1 Tablet(s) Oral QD as needed and 1 tab BID prn 09/06/19 No Stop Date Active cyclobenzaprine 10 mg tablet RxNorm: 223986 Take 1 Tablet(s) Oral QHS every night at bedtime as needed 09/06/19 25 No Stop Date Active loperamide 2 mg tablet RxNorm: 231856 Take 2 Tablet(s) Oral UD as directed as needed 2 tabs after first loose stool then 1 tab after each subsequent stool PRN Do not exceed 4 doses in 24 hours. Do not administer until after 3 loose stools. 09/06/19 25 026 Active pioglitazone 15 mg tablet RxNorm: 834662 Take 1 Tablet(s) Oral QD 09/06/19 25 No Stop Date Active loperamide 2 mg tablet RxNorm: 994132 Take 2 Tablet(s) Oral UD as directed as needed 2 tabs after first loose stool then 1 tab after each subsequent stool PRN Do not exceed 4 doses in 24 hours. Do not administer until after 3 loose stools. 09/06/19 25 025 Inactive pregabalin 100 mg capsule RxNorm: 543898 1 CAPSULE BY MOUTH EVERY MORNING (DX: NEUROPATHY) 08/23/19 25 025 Active FACILITY IS REQUESTING REFILL. PRIOR RX HAS BEEN EXHAUSTED. THANK YOU. pregabalin 150 mg capsule RxNorm: 677708 1 CAPSULE BY MOUTH AT BEDTIME (DX: NEUROPATHY) 08/21/19 25 Inactive FACILITY IS REQUESTING A REFILL OF THIS MEDICATION, THANK YOU! senna 8.6 mg tablet RxNorm: 800557 Take 1 Tablet(s) Oral QD as needed for constipation on day 2 of no bowel movement 08/09/19 25 025 Inactive Miralax 17 gram/dose oral powder RxNorm: 426259 Administer 17 Gram(s) Oral QD as needed for constipation on day 3 of no bowel movement 08/09/19 25 025 Inactive senna 8.6 mg tablet RxNorm: 138117 Take 1 Tablet(s) Oral QD as needed for constipation on day 2 of no bowel movement 08/09/19 25 025 Inactive Miralax 17 gram/dose oral powder RxNorm: 078715 Administer 17 Gram(s) Oral QD as needed for constipation on day 3 of no bowel movement 08/09/19 025 Inactive pregabalin 100 mg capsule RxNorm: 908678 Take 1 Capsule(s) Oral QAM every morning [...] (Concentrated) Insulin 500 unit/mL subcutaneous soln RxNorm: 234661 Inject 100 Unit(s) Subcutaneous AC before meals Three times daily before meals. 07/24/19 25 025 Inactive ammonium lactate 12 % topical cream RxNorm: 817998 Apply 1 Application Topical BID 07/20/19 25 No Stop Date Active ezetimibe 10 mg tablet RxNorm: 300945 Take 1 Tablet(s) Oral QD 07/18/19 25 No Stop Date Active senna 8.6 mg tablet RxNorm: 171974 Take 1 Tablet(s) Oral QD 07/18/19 25 025 Inactive metoprolol succinate ER 200 mg tablet,extended release 24 hr RxNorm: 257508 Take 1 Tablet(s) Oral QD 06/19/19 25 No Stop Date Active pantoprazole 40 mg tablet,delayed release RxNorm: 624785 Take 1 Tablet(s) Oral QAM every morning 06/19/19 25 No Stop Date Active hydralazine 50 mg tablet RxNorm: 595478 Take 1 Tablet(s) Oral QID 06/19/19 25 No Stop Date Active carbamazepine 200 mg tablet RxNorm: 287773 Take 1 Tablet(s) Oral BID 06/19/19 25 No Stop Date Active amlodipine 10 mg tablet RxNorm: 020571 Take 1 Tablet(s) Oral QD 06/19/19 25 No Stop Date Active Eliquis 5 mg tablet RxNorm: 5976397 Take 1 Tablet(s) Oral BID 06/19/19 25 No Stop Date Active pen needle, diabetic 30 gauge x 3/16 RxNorm: Use 1 6 times per day w/insulin 06/14/19 25 026 Active pen needle, diabetic 30 gauge x 3/16 RxNorm: Use 1 needle 6 times per day w/insulin 06/14/19 25 025 Inactive nystatin 100,000 unit/gram topical powder RxNorm: 726609 Apply 1 Application Topical BID as needed abdominal/breast/ groin folds 05/24/19 25 026 Active pregabalin 100 mg capsule RxNorm: 766074 Take 1 Capsule(s) Oral QAM every morning 05/22/19 25 025 Inactive nystatin 100,000 unit/gram topical powder RxNorm: 090748 Apply 1 Application Topical BID as needed abdominal/breast/ groin folds 04/11/20 24 11/26/2 024 Inactive chlorthalidone 25 mg tablet RxNorm: 351668 Take 1 Tablet(s) Oral QAM every morning 04/06/20 No Stop Date Active pregabalin 150 mg capsule RxNorm: 155627 Take 1 Capsule(s) Oral QHS every night at bedtime 03/31/20 Inactive Vascepa 1 gram capsule RxNorm: 4881657 Take 2 Capsule(s) Oral BID 03/30/20 Active rosuvastatin 40 mg tablet RxNorm: 465150 1 TAB ORALLY EVERY EVENING (DX:CORONARY ARTERY DISEASE) 03/28/20 No Stop Date Active venlafaxine ER 75 mg capsule,extended release 24 hr RxNorm: 121352 3 CAPS (225MG) ORALLY DAILY (DX: MOOD DISORDER) 03/28/20 No Stop Date Active pregabalin 100 mg capsule RxNorm: 808777 Take 1 Capsule(s) Oral QAM every morning 03/20/20 Inactive cholecalciferol (vitamin D3) 1,250 mcg (50,000 unit) capsule RxNorm: 915209 Take 1 Capsule(s) Oral QW once a [...] Insulin 100 unit/mL (3 mL) subcutaneous RxNorm: 3424356 Inject 40 Unit(s) Subcutaneous BID 03/07/20 025 Inactive Please dispense one month supply. Humulin R U-500 (Concentrated) Insulin 500 unit/mL subcutaneous soln RxNorm: 301084 Inject 100 Unit(s) Subcutaneous AC before meals [...] PRN) to be use with new Accu Harper meter 03/04/20 Inactive ok to substitute with any covered alternative test strip FreeStyle Chema 2 Sensor kit RxNorm: Use UD as directed 03/02/20 Inactive Pen Needle 30 gauge x 5 RxNorm: Pen(s) Use 1 needle as directed TID 03/02/20 Inactive nystatin 100,000 unit/gram topical powder RxNorm: 577315 Apply 1 Application Topical BID as needed [...] (Concentrated) Insulin 500 unit/mL subcutaneous soln RxNorm: 039744 Inject 100 Unit(s) Subcutaneous TID 02/17/20 24 024 Inactive Humulin R U-500 (Concentrated) Insulin 500 unit/mL subcutaneous soln RxNorm: 481261 Inject 100 Unit(s) Subcutaneous TID 02/10/20 24 024 Inactive Tusharagldestin MendenhallPen U-100 Insulin 100 unit/mL (3 mL) subcutaneous RxNorm: 0414627 Inject 30 Unit(s) Subcutaneous BID 02/10/20 24 024 Inactive Please dispense one month supply. pregabalin 100 mg capsule RxNorm: 220409 Take 1 Capsule(s) Oral QAM every morning 02/07/20 24 024 Inactive isosorbide mononitrate ER 60 mg tablet,extended release 24 hr RxNorm: 470428 Take 1 Tablet(s) Oral QD 02/01/20 24 025 Inactive aripiprazole 15 mg tablet RxNorm: 430420 Take 1/2 Tablet(s) Oral QD 02/01/20 24 025 Inactive torsemide 20 mg tablet RxNorm: 312678 1 TAB ORALLY DAILY (DX: EDEMA) 01/27/20 No Stop Date Active potassium chloride ER 20 mEq tablet,extended release(part/cryst) RxNorm: 8687319 2 TABS (40MEQ) ORALLY TWICE DAILY (DX: HYPOKALEMIA) 01/27/20 24 025 Inactive cephalexin 500 mg capsule RxNorm: 753318 Take 1 Capsule(s) Oral QID 12/17/19 24 024 Inactive cephalexin 500 mg capsule RxNorm: 737989 Take 1 Capsule(s) Oral QID 12/17/19 24 024 Inactive acetaminophen 500 mg tablet RxNorm: 915503 (MAX APAP:4GM/24HR) Take 1 Tablet(s) Oral TID as needed for pain 12/10/19 24 024 Inactive torsemide 20 mg tablet RxNorm: 517903 Take 1 Tablet(s) Oral QD 10/26/19 24 024 Inactive potassium chloride ER 20 mEq tablet,extended release RxNorm: 348221 Take 2 Tablet(s) Oral BID 10/26/19 24 024 Inactive torsemide 20 mg tablet RxNorm: 821678 Take 1 Tablet(s) Oral QD 10/26/19 24 Inactive potassium chloride ER 20 mEq tablet,extended release RxNorm: 056899 Take 2 Tablet(s) Oral BID 10/26/19 24 Inactive Artificial Tears (PF) 0.1 %-0.3 % drops in a dropperette RxNorm: 026135 Apply 1-2 Drop(s) Both eyes BID as needed 09/28/19 24 Inactive erythromycin 5 mg/gram (0.5 %) eye ointment RxNorm: 931591 Apply 1 Application Both eyes QHS every night at bedtime Instill ~1 cm ribbon into affected eye 09/28/19 Inactive Artificial Tears (PF) 0.1 %-0.3 % drops in a dropperette RxNorm: 529692 Apply 1-2 Drop(s) Both eyes BID as needed 09/28/19 Inactive erythromycin 5 mg/gram (0.5 %) eye ointment RxNorm: 809492 Apply 1 Application Both eyes QHS every night at bedtime Instill ~1 cm ribbon into affected eye 09/28/19 24 024 Inactive acetaminophen 500 mg tablet RxNorm: 218606 (MAX APAP:4GM/24HR) Take 1 Tablet(s) Oral TID as needed for pain 09/24/19 Inactive carvedilol 25 mg tablet RxNorm: 815987 Take 1 Tablet(s) Oral QD 09/08/19 24 No Stop Date Active pregabalin 100 mg capsule RxNorm: 614060 Take 1 Capsule(s) Oral QAM every morning 09/07/19 24 024 Inactive bisacodyl 10 mg rectal suppository RxNorm: 323056 Insert 1 Suppository Rectal QD as needed 07/13/19 24 No Stop Date Active ketoconazole 2 % shampoo RxNorm: 921633 Apply 1 Application Topical UD as directed 07/13/19 24 No Stop Date Active Ozempic 1 mg/dose (4 mg/3 mL) subcutaneous pen injector RxNorm: 4548556 Inject 1 Milligram(s) Subcutaneous QW once a week 07/13/19 No Stop Date Active Guaifenesin AC 10 mg-100 mg/5 mL oral liquid RxNorm: 429209 Take 10 Milliliter(s) Oral Q4H every four hours as needed 07/13/19 No Stop Date Active hydrocortisone 2.5 % topical cream RxNorm: 217359 Apply 1 Application Topical BID as needed 07/13/19 No Stop Date Active rosuvastatin 40 mg tablet RxNorm: 552615 Take 1 Tablet(s) Oral QPM every evening 07/13/19 024 Inactive ezetimibe 10 mg tablet RxNorm: 166088 Take 1 Tablet(s) Oral QD 07/13/19 24 025 Inactive polyethylene glycol 3350 17 gram/dose oral powder RxNorm: 615892 Take 17 Gram(s) Oral BID as needed mix in 4-8ox water 07/13/19 24 025 Inactive aripiprazole 15 mg tablet RxNorm: 866613 Take 1/2 Tablet(s) Oral QD 07/13/19 24 024 Inactive isosorbide mononitrate ER 60 mg tablet,extended release 24 hr RxNorm: 704771 Take 1 Tablet(s) Oral QD 07/13/19 24 024 Inactive ammonium lactate 12 % topical cream RxNorm: 468412 Apply 1 Application Topical BID 07/13/19 24 025 Inactive rosuvastatin 20 mg sprinkle capsule RxNorm: 3935358 Take 1 Capsule(s) Oral QD 07/13/19 24 025 Inactive Vascepa 1 gram capsule RxNorm: 2244637 Take 2 Capsule(s) Oral BID 07/13/19 24 024 Inactive venlafaxine ER 75 mg capsule,extended release 24 hr RxNorm: 412398 Take 3 Capsule(s) Oral QD 07/13/19 24 024 Inactive Basaglar KwikPen U-100 Insulin 100 unit/mL (3 mL) subcutaneous RxNorm: 7385400 Inject 30U SubQ twice daily 07/07/19 24 024 Inactive Please dispense one month supply. Basaglar KwikPen U-100 Insulin 100 unit/mL (3 mL) subcutaneous RxNorm: 0384999 Inject 30U SubQ twice daily 07/07/19 24 024 Inactive Please dispense one month supply. pregabalin 150 mg capsule RxNorm: 041685 Take 1 Capsule(s) Oral QHS every night at bedtime 07/05/19 24 024 Inactive pregabalin 150 mg capsule RxNorm: 663358 Take 1 Capsule(s) Oral QHS every night at bedtime 07/05/19 24 024 Inactive polyethylene glycol 3350 17 gram/dose oral powder RxNorm: 163379 Take 1 Packet Oral QD as needed (1 packet = 17g) mix with 4-8oz of liquid 06/15/19 024 Inactive bisacodyl 10 mg rectal suppository RxNorm: 445890 Insert one suppository per rectum once daily as needed for constipation 06/15/19 24 024 Inactive bisacodyl 10 mg rectal suppository RxNorm: 217382 Insert one suppository per rectum once daily as needed for constipation 06/15/19 24 024 Inactive pregabalin 100 mg capsule RxNorm: 130322 Take 1 Capsule(s) Oral QAM every morning 04/27/20 024 Inactive Levemir FlexPen 100 unit/mL (3 mL) solution subcutaneous insulin pen RxNorm: 984591 Inject 30 Unit(s) Subcutaneous BID 04/27/20 23 024 Inactive rosuvastatin 40 mg tablet RxNorm: 449783 Take 1 Tablet(s) Oral QPM every evening 04/16/20 024 Inactive D/C rosuvastatin 20mg venlafaxine ER 75 mg capsule,extended release 24 hr RxNorm: 780346 Take 3 Capsule(s) Oral QD 04/14/20 23 023 Inactive pregabalin 100 mg capsule RxNorm: 021732 Take 1 Capsule(s) Oral QAM every morning [...] strip clotrimazole 1 % topical cream RxNorm: 314335 Take apply topically to abdominal folds twice daily for 14 days 03/12/20 024 Inactive Ozempic 1 mg/dose (4 mg/3 mL) subcutaneous pen injector RxNorm: 4734931 Inject 1 Milligram(s) Subcutaneous QW once a week 03/11/20 023 Inactive rosuvastatin 20 mg tablet RxNorm: 316057 Take 1 Tablet(s) Oral QD 02/26/20 23 023 Inactive d/c pravastatin 80mg Ozempic 1 mg/dose (4 mg/3 mL) subcutaneous pen injector RxNorm: 7089074 Inject 1 Milligram(s) Subcutaneous QW once a week 02/20/20 23 023 Inactive pregabalin 150 mg capsule RxNorm: 564746 Take 1 Capsule(s) Oral HS at bed time 02/19/20 23 023 Inactive pregabalin 100 mg capsule RxNorm: 405589 Take 1 Capsule(s) Oral QAM every morning 02/18/20 023 Inactive venlafaxine ER 75 mg capsule,extended release 24 hr RxNorm: 241983 Take 3 Capsule(s) Oral QD 02/04/20 023 Inactive FreeStyle Chema 2 Sensor kit RxNorm: use as directed 02/04/20 23 023 Inactive FreeStyle Chema 2 Sensor kit RxNorm: use as directed 02/04/20 23 024 Inactive fluconazole 150 mg tablet RxNorm: 759033 Take 1 Tablet(s) Oral on day 3 and on day 6 02/03/20 23 024 Inactive venlafaxine ER 150 mg capsule,extended release 24 hr RxNorm: 669741 Take 1 Capsule(s) Oral QD 09/ 023 Inactive chlorthalidone 25 mg tablet RxNorm: 253894 Take 1 Tablet(s) Oral QAM every morning 02/03/20 024 Inactive acetaminophen 500 mg tablet RxNorm: 566402 1 TABLET ORALLY 3 TIMES DAILY (MAX APAP:4GM/24HR) 12/15/19 023 Inactive potassium chloride ER 20 mEq tablet,extended release RxNorm: 203223 Take 1 Tablet(s) Oral BID 12/09/19 024 Inactive d/c 20mEq once daily (sent from hospital) clotrimazole 1 % topical cream RxNorm: 728886 apply 1g topically to top of feet and in between toes BID 12/09/19 23 025 Inactive nystatin 100,000 unit/gram topical powder RxNorm: 760881 APPLY TO AFFECTED AREAS TOPICALLY 2 TIMES DAILY 11/21/19 23 023 Inactive Nystop 100,000 unit/gram topical powder RxNorm: 270949 Apply to abd folds, under breasts and L side of groin Topical BID x 14 days, then BID PRN 11/20/19 023 Inactive dx: yeast dermatitis [place] Ultra Strength 4 %-30 %-10 % topical cream RxNorm: 326752 Apply 1 Gram(s) Topical QID PRN to feet and legs for neuropathic pain 11/11/19 024 Inactive hydrocortisone 2.5 % topical cream RxNorm: 970398 Apply 1/2 Gram(s) Topical BID as needed 11/10/19 23 024 Inactive clotrimazole 1 % topical cream RxNorm: 319667 Apply 1/2 Gram(s) Topical BID Apply to affected areas of groin, periarea, and abdominal topically 2 times daily 11/10/19 025 Inactive Levemir FlexPen 100 unit/mL (3 mL) solution subcutaneous insulin pen RxNorm: 833543 Inject 30 Unit(s) Subcutaneous BID 10/07/19 23 023 Inactive Humulin R U-500 (Concentrated) Insulin 500 unit/mL subcutaneous soln RxNorm: 230239 Inject 100 Unit(s) Subcutaneous TID 10/07/19 024 Inactive Ozempic 0.25 mg or 0.5 mg (2 mg/3 mL) subcutaneous pen injector RxNorm: 8881841 Inject 1/2 Milligram(s) Subcutaneous QW once a week 10/07/19 024 Inactive aripiprazole 15 mg tablet RxNorm: 106296 1/2 TAB (7.5MG) ORALLY DAILY (DX:MAJOR DEPRESSIVE DISORDER) 09/23/19 023 Inactive Accu-Chek Guide test strips RxNorm: Use 1 Test Strip QID 09/15/19 023 Inactive ok to substitute with any covered alternative test strip Lancets,Thin 28 gauge RxNorm: Use 1 as directed QID 09/15/19 023 Inactive torsemide 20 mg tablet RxNorm: 218352 Take 1 Tablet(s) Oral BID 09/09/19 024 Inactive d/c once daily dosing carvedilol 25 mg tablet RxNorm: 308266 Take 1 Tablet(s) Oral QD 08/25/19 23 024 Inactive pregabalin 150 mg capsule RxNorm: 178466 1 Capsule(s) Oral HS at bed time 08/18/19 023 Inactive pregabalin 100 mg capsule RxNorm: 549803 1 Capsule(s) Oral QAM every morning 08/18/19 023 Inactive carvedilol 25 mg tablet RxNorm: 258232 1 Tablet(s) Oral QD 07/28/19 23 023 Inactive lisinopril 20 mg tablet RxNorm: 783466 Give 1 Tablet(s) Oral QD 07/28/19 23 023 Inactive Lyrica 150 mg capsule RxNorm: 975805 Take 1 Capsule(s) Oral QHS every night at bedtime 07/19/19 023 Inactive d/c 100mg dose Diflucan 150 mg tablet RxNorm: 638998 Take 1 Tablet(s) Oral QD repeat on day 3 and 6 07/19/19 23 023 Inactive pregabalin 100 mg capsule RxNorm: 464838 Take 1 Capsule(s) Oral QAM every morning 07/19/19 23 023 Inactive gatifloxacin 0.5 % eye drops RxNorm: 102241 Instill 1 Drop(s) as directed TID Instill 1 drop in to affected eye(s) starting 1 day prior to surgery and continue until gone (do not exceed 4 weeks). 07/13/19 23 023 Inactive carvedilol 25 mg tablet RxNorm: 389400 2 Tablet(s) Oral BID 07/13/19 023 Inactive Humulin R Regular U-100 Insulin 100 unit/mL injection solution RxNorm: 826844 85 Unit(s) Injection TID 07/13/19 023 Inactive ketorolac 0.5 % eye drops RxNorm: 248043 Instill 1 Drop(s) as directed QID Instill 1 drop into affected eye(s) 4 times daily starting 1 day prior to surgery and continue until gone (do not exceed 4 weeks). 07/13/19 023 Inactive Diflucan 150 mg tablet RxNorm: 843234 Take 1 Tablet(s) Oral QD repeat on day 3 and 6 06/30/19 23 023 Inactive Accu-Chek Guide test strips RxNorm: Use 1 Test Strip QID Use 1 test strip to monitor blood glucose 4 times daily and as needed. Dx:E11.42. 06/23/19 023 Inactive ok to substitute with any covered alternative test strip dextromethorphan-gu aifenesin 10 mg-100 mg/5 mL oral liquid RxNorm: 094664 Take 10 Milliliter(s) Oral every 4 hours as needed for cough 06/19/19 023 Inactive dextromethorphan-gu aifenesin 10 mg-100 mg/5 mL oral liquid RxNorm: 728506 Take 10 Milliliter(s) Oral every 4 hours as needed for cough 06/19/19 23 023 Inactive Lyrica 150 mg capsule RxNorm: 625403 Take 1 Capsule(s) Oral QHS every night at bedtime 06/18/19 23 023 Inactive d/c 100mg dose aripiprazole 15 mg tablet RxNorm: 357202 1/2 TAB (7.5MG) ORALLY DAILY (DX:MAJOR DEPRESSIVE DISORDER) 06/05/19 023 Inactive pregabalin 100 mg capsule RxNorm: 830857 1 Capsule(s) Oral QAM every morning 06/02/19 23 023 Inactive Banophen 50 mg capsule RxNorm: 8728020 Take 1 Capsule(s) Oral Q6H every 6 hours as needed 05/19/19 23 No Stop Date Active Novolog Flexpen U-100 Insulin aspart 100 unit/mL (3 mL) subcutaneous RxNorm: 1135512 Inject 10 Unit(s) Subcutaneous QHS every night at bedtime with nighttime snack 04/08/20 022 Inactive Novolog Flexpen U-100 Insulin aspart 100 unit/mL (3 mL) subcutaneous RxNorm: 9600622 Inject 42 Unit(s) Subcutaneous TID in addition to sliding scale 04/08/20 022 Inactive d/c 36u albuterol sulfate HFA 90 mcg/actuation aerosol inhaler RxNorm: 3157650 Take 2 Puff(s) Inhalation Q4H every four hours as needed as needed for SOB, cough, or wheezing 04/07/20 030 Active Banophen 50 mg capsule RxNorm: 9497587 Take 1 Capsule(s) Oral Q6H every 6 hours as needed 04/06/20 023 Inactive diphenhydramine 50 mg tablet RxNorm: 8114484 Take 1 Tablet(s) Oral Q6H every 6 hours as needed 04/06/20 22 022 Inactive diphenhydramine 50 mg tablet RxNorm: 3644732 1 Tablet(s) Oral Q6H every 6 hours as needed 04/06/20 22 022 Inactive Abilify 15 mg tablet RxNorm: 218186 1/2 Tablet(s) Oral QD 03/10/20 22 023 Inactive Shingrix (PF) 50 mcg/0.5 mL intramuscular suspension, kit RxNorm: 5769293 Administer 1/2 Milliliter(s) Intramuscular QD one time shingrix step 2 ( step 1 given 11/04/21) WITH needle - Nursing please administer upon arrival and once administered post a bridge message with date of administration, fire investigation manager, expiration date, and lot# so we can update [facility] 02/18/20 22 022 Inactive dispense with needle Shingrix (PF) 50 mcg/0.5 mL intramuscular suspension, kit RxNorm: 2862403 Administer 1/2 Milliliter(s) Intramuscular QD one time shingrix step 2 ( step 1 given 11/04/21) WITH needle - Nursing please administer upon arrival and once administered post a bridge message with date of administration, fire investigation manager, expiration date, and lot# so we can update [facility] 02/18/20 22 022 Inactive dispense with needle Lyrica 100 mg capsule RxNorm: 077877 Take 1 Capsule(s) Oral QAM every morning 01/08/20 22 022 Inactive d/c 50mg dose acetaminophen 500 mg tablet RxNorm: 588612 Take 1 Tablet(s) Oral TID 01/08/20 22 022 Inactive d/c PRN order Lyrica 150 mg capsule RxNorm: 675706 Take 1 Capsule(s) Oral QHS every night at bedtime 01/08/20 22 023 Inactive d/c 100mg dose polyethylene glycol 3350 17 gram/dose oral powder RxNorm: 505199 Take 17=1 capful Gram(s) Oral QD mix with 4-8oz of liquid 01/08/20 22 025 Inactive take this in addition to BID prn order Abilify 5 mg tablet RxNorm: 924589 Take 1 Tablet(s) Oral QD take 1 tab po QD #30 refill 5 dx: MDD 12/12/19 22 022 Inactive Abilify 5 mg tablet RxNorm: 737057 Take 1 Tablet(s) Oral QD take 1 tab po QD #30 refill 5 dx: MDD 12/12/19 22 022 Inactive Novolog Flexpen U-100 Insulin aspart 100 unit/mL (3 mL) subcutaneous RxNorm: 1400290 Inject 42 Unit(s) Subcutaneous TID in addition to sliding scale 12/10/19 22 022 Inactive d/c 36u chlorthalidone 25 mg tablet RxNorm: 402002 Take 1 Tablet(s) Oral QAM every morning 12/10/19 22 023 Inactive pregabalin 50 mg capsule RxNorm: 168501 Take 1 Capsule(s) Oral QAM every morning 11/12/19 22 022 Inactive tetanus-diphtheria toxoids-Td 2 Lf unit-2 Lf unit/0.5 mL IM suspension RxNorm: 139 Take 0.5 Miscellaneous Intramuscular 11/12/19 22 022 Inactive need tdap - nursing to administer upon arrival pregabalin 50 mg capsule RxNorm: 654259 Take 1 Capsule(s) Oral QAM every morning 10/16/19 22 022 Inactive pregabalin 50 mg capsule RxNorm: 385347 Take 1 Capsule(s) Oral QAM every morning 10/16/19 22 022 Inactive pregabalin 50 mg capsule RxNorm: 615066 1 Capsule(s) Oral QAM every morning 10/15/19 22 022 Inactive Shingrix (PF) 50 mcg/0.5 mL intramuscular suspension, kit RxNorm: 7276901 Administer 1/2 Milliliter(s) Intramuscular one time Nursing please administer upon arrival and once administered post a bridge message with date of administration, fire investigation manager, expiration date, and lot# so we can update [facility]. 10/09/19 22 022 Inactive shingrix step 1 Shingrix (PF) 50 mcg/0.5 mL intramuscular suspension, kit RxNorm: 3742268 Administer 1/2 Milliliter(s) Intramuscular one time Nursing please administer upon arrival and once administered post a bridge message with date of administration, fire investigation manager, expiration date, and lot# so we [...] aspart 100 unit/mL (3 mL) subcutaneous RxNorm: 1131477 Inject 10 Unit(s) Subcutaneous QHS every night at bedtime with nighttime snack 10/08/19 22 022 Inactive Shingrix (PF) 50 mcg/0.5 mL intramuscular suspension, kit RxNorm: 3228670 ADMINISTER 2-DOSE SERIES PER CDC GUIDELINES 10/08/19 22 Active Shingrix (PF) 50 mcg/0.5 mL intramuscular suspension, kit RxNorm: 0015684 ADMINISTER 2-DOSE SERIES PER CDC GUIDELINES 10/08/19 22 Inactive Novolog Flexpen U-100 Insulin aspart 100 unit/mL (3 mL) subcutaneous RxNorm: 2762727 Inject 36 Unit(s) Subcutaneous TID in addition to sliding scale 10/08/19 Inactive cholecalciferol (vitamin D3) 1,250 mcg (50,000 unit) capsule RxNorm: 790808 Take 1 Capsule(s) Oral QW once a week 10/08/19 024 Inactive Novofine Autocover 30 gauge x 1/3 needle RxNorm: Use 1 Miscellaneous UD as directed Use 1 needle as directed to administer insulin 5 times a day Dx:E11.42. 10/03/19 022 Inactive ok to substitute with any covered alternative pen needle benzoyl peroxide 10 % topical cleanser RxNorm: 926192 Apply 1 Application Topical QD apply to face, wash rinse and dry once daily (may change to QOD if drying) 08/19/19 22 022 Inactive (%covered by insurance) #60ml refill 11 dx: acne benzoyl peroxide 10 % topical cleanser RxNorm: 837560 Apply 1 Application Topical QD apply to face, wash rinse and dry once daily (may change to QOD if drying) 08/19/19 22 022 Inactive (%covered by insurance) #60ml refill 11 dx: acne benzoyl peroxide 10 % topical cleanser RxNorm: 018928 Apply 1 Application Topical QD apply to face, wash rinse and dry once daily (may change to QOD if drying) 08/19/19 22 022 Inactive (%covered by insurance) #60ml refill 11 dx: acne Lyrica 50 mg capsule RxNorm: 865008 Take 1 Capsule(s) Oral QAM every morning Take 1 capsule by mouth once daily 08/19/19 22 022 Inactive benzoyl peroxide 10 % topical cleanser RxNorm: 565593 Apply 1 Application Topical QD apply to face, wash rinse and dry once daily (may change to QOD if drying) 08/19/19 22 022 Inactive (%covered by insurance) #60ml refill 11 dx: acne Lyrica 100 mg capsule RxNorm: 651757 Take 1 Capsule(s) Oral QHS every night at bedtime Take 1 capsule by mouth once daily at bedtime 08/19/19 22 022 Inactive Lyrica 100 mg capsule RxNorm: 167674 Take 1 Capsule(s) Oral QHS every night at bedtime Take 1 capsule by mouth once daily at bedtime 08/16/19 22 022 Inactive Lyrica 50 mg capsule RxNorm: 624036 Take 1 Capsule(s) Oral QAM every morning Take 1 capsule by mouth once daily 08/16/19 22 022 Inactive Levemir FlexTouch U-100 Insulin 100 unit/mL (3 mL) subcutaneous pen RxNorm: 457924 Inject 86 Unit(s) Subcutaneous BID 08/05/19 22 022 Inactive d/c 83units BID Lyrica 100 mg capsule RxNorm: 810076 Take 1 Capsule(s) Oral QHS every night at bedtime Take 1 capsule by mouth once daily at bedtime 07/14/19 22 022 Inactive Lyrica 50 mg capsule RxNorm: 266581 Take 1 Capsule(s) Oral QAM every morning Take 1 capsule by mouth once daily 07/14/19 22 022 Inactive Levemir FlexTouch U-100 Insulin 100 unit/mL (3 mL) subcutaneous pen RxNorm: 370631 Inject 83 Unit(s) Subcutaneous BID 07/08/19 22 [...] test strip hydralazine 50 mg tablet RxNorm: 697160 Take 1 Tablet(s) Oral QID 05/05/20 21 022 Inactive venlafaxine ER 225 mg tablet,extended release 24 hr RxNorm: 533272 Take 1 Tablet(s) Oral QD 05/05/20 21 021 Inactive venlafaxine ER 225 mg tablet,extended release 24 hr RxNorm: 138255 Take 1 Tablet(s) Oral QD 05/05/20 21 022 Inactive isosorbide mononitrate ER 30 mg tablet,extended release 24 hr RxNorm: 593670 Take 1 Tablet(s) Oral QD 05/05/20 024 Inactive hydralazine 50 mg tablet RxNorm: 732477 Take 1 Tablet(s) Oral QID 05/05/20 21 021 Inactive aspirin 81 mg tablet,delayed release RxNorm: 408407 Take 1 Tablet(s) Oral QD 03/31/20 022 Inactive Vitamin D2 1,250 mcg (50,000 unit) capsule RxNorm: 6074302 Take 1 Capsule(s) Oral QW once a week x 12 weeks 03/31/20 022 Inactive Vitamin D2 1,250 mcg (50,000 unit) capsule RxNorm: 1340270 Take 1 Capsule(s) Oral QW once a week 03/31/20 021 Inactive Zetia 10 mg tablet RxNorm: 585542 Take 1 Tablet(s) Oral QD 03/31/20 024 Inactive Zetia 10 mg tablet RxNorm: 779164 Take 1 Tablet(s) Oral QD 03/31/20 021 Inactive hydralazine 25 mg tablet RxNorm: 218376 Take 1 Tablet(s) Oral QID 03/31/20 021 Inactive hydralazine 25 mg tablet RxNorm: 312535 Take 1 Tablet(s) Oral QID 03/31/20 021 Inactive hydralazine 10 mg tablet RxNorm: 143565 Take 1 Tablet(s) Oral QID 03/03/20 021 Inactive cephalexin 500 mg tablet RxNorm: 405779 Take 1 Tablet(s) Oral QID 02/27/20 021 Inactive cephalexin 500 mg tablet RxNorm: 449900 Take 1 Tablet(s) Oral QID 02/27/20 021 Inactive lisinopril 40 mg tablet RxNorm: 905799 Take 1 Tablet(s) Oral QD 02/11/20 21 023 Inactive Eliquis 5 mg tablet RxNorm: 8562105 Take 1 Tablet(s) Oral BID 01/05/20 21 025 Inactive Eliquis 5 mg tablet RxNorm: 6582382 Take 2 Tablet(s) Oral QD 01/01/20 21 021 Inactive Lyrica 50 mg capsule RxNorm: 094269 Take 1 Capsule(s) Oral QAM every morning 12/24/19 21 021 Inactive Lyrica 100 mg capsule RxNorm: 314290 Take 1 Capsule(s) Oral QHS every night at bedtime 12/24/19 021 Inactive clotrimazole 1 % topical cream RxNorm: 075523 Apply to right foot and toes Topical BID 12/04/19 21 023 Inactive metoprolol succinate ER 200 mg tablet,extended release 24 hr RxNorm: 960570 Take 1 Tablet(s) Oral QD 12/04/19 21 023 Inactive ciprofloxacin 500 mg tablet RxNorm: 881905 Take 1 Tablet(s) Oral QD 11/30/19 21 021 Inactive DX ofloxacin otic drops Accu-Chek Guide test strips RxNorm: USE 1 TO CHECK GLUCOSE 4 TIMES DAILY AND NEEDED 11/15/19 21 023 Inactive Blood Glucose Test strips RxNorm: Use 1 Test Strip QID at PRN 11/05/19 21 023 Inactive E11.42 lisinopril 30 mg tablet RxNorm: 252077 Take 1 Tablet(s) Oral QD 10/30/19 021 Inactive lisinopril 20 mg tablet RxNorm: 543468 Take 1 Tablet(s) Oral QD 10/23/19 21 021 Inactive lisinopril 20 mg tablet RxNorm: 403794 Take 1 Tablet(s) Oral QD 10/23/19 21 021 Inactive lisinopril 10 mg tablet RxNorm: 155339 Take 1 Tablet(s) Oral QD 10/02/19 21 021 Inactive icosapent ethyl 1 gram capsule RxNorm: 8237355 Take 2 Capsule(s) (2 gm) Oral BID with meals 09/12/19 21 024 Inactive Okay to dispense one 2gm tab if you have that available. icosapent ethyl 1 gram capsule RxNorm: 4172835 Take 2 Capsule(s) Oral BID 09/12/19 21 021 Inactive Okay to dispense one 2gm tab if you have that available. amlodipine 10 mg tablet RxNorm: 346716 Take 1 Tablet(s) Oral QD 09/04/19 21 021 Inactive aspirin 81 mg tablet,delayed release RxNorm: 371380 Take 1 Tablet(s) Oral QD 09/04/19 021 Inactive Levemir FlexTouch U-100 Insulin 100 unit/mL (3 mL) subcutaneous pen RxNorm: 670723 Inject 150 Unit(s) Subcutaneous BID 09/04/19 21 022 Inactive venlafaxine ER 150 mg tablet,extended release 24 hr RxNorm: 747737 Take 1 Tablet(s) Oral QD 09/04/19 21 021 Inactive clotrimazole-betame thasone 1 %-0.05 % topical cream RxNorm: 846193 Apply to rash on red area on left abdomen/chest Topical BID 08/10/19 21 021 Inactive amlodipine 5 mg tablet RxNorm: 878627 Take 1 Tablet(s) Oral QD 07/31/19 21 021 Inactive cephalexin 500 mg tablet RxNorm: 990353 Take 1 Tablet(s) Oral BID BID - Twice Daily 07/31/19 21 021 Inactive Start 08/01/20 pantoprazole 40 mg tablet,delayed release RxNorm: 777385 Take 1 Tablet(s) Oral QAM every morning 07/08/19 025 Inactive clopidogrel 75 mg tablet RxNorm: 669926 Take 1 Tablet(s) Oral QD 07/08/19 21 021 Inactive Blood Glucose Test strips RxNorm: Use 1 Test Strip QID at PRN 07/08/19 21 021 Inactive E11.42 senna 8.6 mg tablet RxNorm: 664310 Take 1 Tablet(s) Oral QD 07/08/19 21 025 Inactive Novolog Flexpen U-100 Insulin aspart 100 unit/mL (3 mL) subcutaneous RxNorm: 1320778 Administer per sliding scale Milliliter(s) Subcutaneous TID 151-200: 10 u; 201-250: 20 u; 251-300: 30 u; 301-350: 40 u; 351-400: 50 u. 07/08/19 022 Inactive lisinopril 5 mg tablet RxNorm: 168538 Take 1 Tablet(s) Oral QD 07/08/19 021 Inactive Novolog Flexpen U-100 Insulin aspart 100 unit/mL (3 mL) subcutaneous RxNorm: 6674597 Inject 85 Unit(s) Subcutaneous TID 07/08/19 022 Inactive pravastatin 80 mg tablet RxNorm: 520939 Take 1 Tablet(s) Oral QHS every night at bedtime 07/08/19 023 Inactive clotrimazole 1 % topical cream RxNorm: 247396 Apply to bilateral groin areas Topical BID 07/08/19 022 Inactive metoprolol succinate ER 200 mg tablet,extended release 24 hr RxNorm: 265025 Take 1 Tablet(s) Oral QD 07/08/19 021 Inactive Vitamin D3 25 mcg (1,000 unit) tablet RxNorm: 253856 Take 1 Tablet(s) Oral QD 07/08/19 021 Inactive isosorbide dinitrate 30 mg tablet RxNorm: 387115 Take 1 Tablet(s) Oral QD 07/08/19 021 Inactive carbamazepine 200 mg tablet RxNorm: 933157 Take 1 Tablet(s) Oral BID 07/08/19 025 Inactive Levemir FlexTouch U-100 Insulin 100 unit/mL (3 mL) subcutaneous pen RxNorm: 988869 Inject 140 Unit(s) Subcutaneous BID 07/08/19 021 Inactive torsemide 20 mg tablet RxNorm: 778672 Take 1 Tablet(s) Oral QD 07/08/19 023 Inactive venlafaxine 75 mg tablet RxNorm: 797779 Take 1 Tablet(s) Oral QD 07/08/19 021 Inactive acetaminophen 500 mg tablet RxNorm: 161607 Take 1 Tablet(s) Oral TID as needed for headache 06/18/19 021 Inactive acetaminophen 500 mg tablet RxNorm: 702380 Take 1 Tablet(s) Oral TID as needed for headache 06/18/19 21 021 Inactive Lyrica 100 mg capsule RxNorm: 837410 Take 1 Capsule(s) Oral QHS every night at bedtime 06/11/19 21 021 Inactive Lyrica 50 mg capsule RxNorm: 214366 Take 1 Capsule(s) Oral QAM every morning 06/10/19 21 021 Inactive hydrocortisone 2.5 % topical cream RxNorm: 660709 Apply to bilateral groin creases Topical BID 05/15/20 20 021 Inactive clotrimazole 1 % topical cream RxNorm: 620677 Apply to bilateral groin areas Topical BID 05/15/20 20 021 Inactive Lyrica 50 mg capsule RxNorm: 850163 Take 1 Capsule(s) Oral QAM every morning 05/14/20 20 020 Inactive Lyrica 100 mg capsule RxNorm: 073520 Take 1 Capsule(s) Oral QHS every night [...] Inactive Nystop 100,000 unit/gram topical powder RxNorm: 779608 Apply to abd folds, under breasts and L side of groin Topical BID x 14 days, then BID PRN 04/08/20 20 020 Inactive dx: yeast dermatitis Lyrica 100 mg capsule RxNorm: 165987 Take 1 Capsule(s) Oral QHS every night at bedtime 03/13/20 20 Inactive Lyrica 50 mg capsule RxNorm: 524539 Take 1 Capsule(s) Oral QAM every morning 03/13/20 20 Inactive ketoconazole 2 % shampoo RxNorm: 646372 Apply Topical two times a week with showers 03/11/20 20 Inactive cholecalciferol (vitamin D3) 50 mcg (2,000 unit) tablet RxNorm: 955888 Take 1 Tablet(s) Oral QD 03/11/20 20 Inactive Zetia 10 mg tablet RxNorm: 732860 Take 1 Tablet(s) Oral QD 03/07/20 20 021 Inactive Zetia 10 mg tablet RxNorm: 007093 Take 1 Tablet(s) Oral QD 03/07/20 20 Inactive Lyrica 50 mg capsule RxNorm: 935234 Take 1 Capsule(s) Oral QAM every morning 02/15/20 20 Inactive Lyrica 100 mg capsule RxNorm: 831775 Take 1 Capsule(s) Oral QHS every night at bedtime 02/15/20 20 Inactive Lyrica 100 mg capsule RxNorm: 331630 Take 1 Capsule(s) Oral QHS every night at bedtime 02/15/20 20 Inactive Lyrica 50 mg capsule RxNorm: 690687 Take 1 Capsule(s) Oral QAM every morning 02/15/20 20 Inactive venlafaxine ER 75 mg capsule,extended release 24 hr RxNorm: 961189 Take 3 Capsule(s) Oral QD 06/12/19 22 023 Inactive polyethylene glycol 3350 17 gram/dose oral powder RxNorm: 561115 Take 17=1 capful Gram(s) Oral BID as needed mix with 4-8oz of liquid 06/12/19 22 024 Inactive icosapent ethyl 1 gram capsule RxNorm: 8240540 Take 2 Capsule(s) (2 gm) Oral BID with meals 10/07/19 023 Inactive Okay to dispense one 2gm tab if you have that available. Levemir FlexTouch U-100 Insulin 100 unit/mL (3 mL) subcutaneous pen RxNorm: 170237 Inject 80 Unit(s) Subcutaneous BID 07/14/19 23 023 Inactive metoprolol succinate ER 200 mg tablet,extended release 24 hr RxNorm: 612871 Take 1 Tablet(s) Oral QD 08/12/19 025 Inactive loperamide 2 mg capsule RxNorm: 683809 Take 1 Capsule(s) Oral QID as needed 09/06/19 025 Inactive hydralazine 50 mg tablet RxNorm: 536298 Take 1 Tablet(s) Oral QID 08/12/19 025 Inactive Soft Touch Lancets RxNorm: miscellaneous 03/04/20 24 025 Inactive Novolog Flexpen U-100 Insulin aspart 100 unit/mL (3 mL) subcutaneous RxNorm: 3606088 Insert 30 Unit(s) Subcutaneous TID with meals [...] [facility] [address] [id number] [place]ReferralNo Records Dstzuhhc08/06/2025Referral: [facility]/Endocrinology WPtel: [phone] [facility] [address] [id number] [place]erralNo Records Eigjtnje20/24/2025Referral: [facility] [address] [id number] [place]ReferralRecords Lvpiswfa14/08/2023Referral: [facility] WPtel: [address] [facility] [address] [id number] IGWwxnheezCrwhgswdm49/12/2022Referral: General CardiologyReferralCompleted 1Referral: General PsychologistReferralClosedReferral: General PsychiatristReferralPatient/Family Scheduling AppointmentReferral: [facility] WPtel: [id number] USReferralFacility Scheduling AppointmentReferral: General Physical Medicine ReferralFacility Scheduling Appointment Instructions Comment Date Leonid is a Male being seen living at [facility]. Initial BPS visit 01/2020. PMHx including DMII, CAD w/ 5 stents, Depression, Seizure Disorder and CKD stage 3. He moved into [facility] in 12/2019 but after a hospitalization 05/2021 he moved to the [facility] to have closer nursing attention. Sister Jyotsna involved in his care cell# [phone] Guardian: Giulia (tapan met in person 09/01/21), [...] LDL cannot calculate because trigs >400. nonHDL 88.4.: BMP Na 141. K 3.0L. Creatinine 1.0. eGFR 84. Ca 9.0. BG 238H. A1c 9.8%.Increased potassium supp from BID to TID - next visit will order K recheck 6..2024: Potassium recheck 4.0. 8.: BMP K 4.0, Na 138, Creatinine 1.35H, eGFR 58L, BUN 24.9H. Ca 9.0. BG 363H. A1c 7.9H. Colon & Rectal Surgery visit scheduled for 06.19.2023 [...] dose of Humalin R U 500 insulin 01/08/2025
--- OUTSIDE RECORDS SUMMARY | 2025-01-30 20:57 | XMS_ITS | CCD ---
Author Name Cecilio Durham Address [address] [address] [place] [address] Phone Organization [facility] Phone Care Team Providers Care Face And Fill Packer Name Role Phone Harrison Durham Primary Care Provider Leona vailable Unavailable Chronic Care Management Unavaila ble Summary Purpose DataExchange Insurance Providers Payer name Policy type / Coverage type Covered libertarian ID Effective Begin Date Effective End Date Medicare [place] Medicare Part B [id number] Unknown Unknown Medicaid [place] Medicare Part B [id number] Unknown Unknown Family history Sister Brittany Suggs [...] on file 07/11/[address]: 281146454 Never smoker 01/16 Sexually Active? Unknown No [...] Unknown Halfway 09/03/[address]: 502199541 No Alcohol Consum ption 09/02/2020 Allergies, Adverse Reactions, Alerts Substance Reaction Codes Entered Date Inactivated Date Status * NO KNOWN FOOD ALLERGIES Qjhdnem2407/13/2023No Inactive DateActiveLISINOPRILRxNorm: 6388227/No Inactive DateActiveMetformin TMiZrqkjez55/28/2020No Inactive DateActive* NO KNOWN ENVIRONMENTAL [id number]/27/2024No Inactive DateActive Problems Condition Codes Effective Dates Condition St atus CKD stage 3a, GFR 45-59 ml/min SNOMED CT : 833534217 ICD-10: N18.31 ICD-9: 585.3085ActiveHypertensive heart disease without heart failureICD- 10: I11.9 ICD-9: 402.90085ActiveOnychogryposisICD-10: L60.2 ICD-9: 703.8085ActiveType 2 diabetes mellitus with diabetic chronic kidney diseaseICD-10: E11.22 ICD-9: 250.40085ActiveBody mass index [BMI] 60.0-69.9, adultICD-10: Z68.44 ICD-9: V85.44085ActiveHistory of recent hospitalizationSNOMED CT: 370247187 ICD-10: Z92.89 ICD-9: V13.9085ActiveHypokalemiaICD-10: E87.6 ICD-9: 276.8085ActiveMixed incontinenceSNOMED CT: 35887694 ICD-10: N39.46 ICD-9: 788.33085ActiveOSA (obstructive sleep apnea)SNOMED CT: 89331541 ICD-10: G47.33 ICD-9: 327.23085ActiveType 2 diabetes mellitus with diabetic polyneuropathy, with long-term current use of insulinICD-10: E11.42 ICD-9: 250.60085ActiveCandidal intertrigoICD-10: B37.2 ICD-9: 112.307/5ActivePulmonary noduleICD-10: R91.1 ICD-9: [...] ulcer of left calf, unstageableICD-10: L89.890 ICD-9: 707.0905/ResolvedDiabetic neuropathy associated with type 2 diabetes mellitusICD-10: E11.40 ICD-9: 250.6002/5ActiveHemorrhoidsICD-10: K64.9 ICD-9: 455.6025ActivePVD (peripheral vascular disease)ICD-10: I73.9 ICD-9: 443.902/5ActiveHyperlipidemia associated with type 2 diabetes mellitusICD-10: E11.69 ICD-9: 250.8001/5ActiveAdvance care planningICD-10: Z71.89 ICD-9: V65.4912/4ActiveLow back painICD-10: M54.50 ICD-9: 724.210/4ActivePhysical deconditioningICD-10: R53.81 ICD-9: 799.310/4ActiveAdvanced care planning - to document end of life asldzpmzsgeXqvlwgf84ctiveAnnual physical examICD-10: Z00.00 ICD-9: V70.009/ctiveHistory of anemia due to CKDICD-10: N18.9 ICD-9: 585.909ctiveHx of deep venous thrombosisICD-10: Z86.718 ICD-9: V12.5109ctiveLearning disabilityICD-10: F81.9 ICD-9: 315.209/ctiveReducible umbilical herniaICD-10: K42.9 ICD-9: 553.109/ctiveVitamin D deficiencyICD-10: E55.9 ICD-9: 268.909/ctiveCallus of heelICD-10: L84 ICD-9: 15954esolvedGout due to renal impairmentICD-10: M10.30 ICD-9: 274.1005esolvedHyperhidrosis of palmsICD-10: L74.512 ICD-9: 705.2105esolvedHyperlipidemia, unspecifiedICD-10: E78.5 ICD-9: 272.405esolvedOther superintendent container terminal (current) drug therapyICD-10: Z79.899 ICD-9: V58.6905esolvedPain [...] tagICD-10: L91.8 ICD-9: 701.904/esolvedCoronary artery disease involving [place] coronary artery of [place] heart, angina presence unspecifiedICD-10: I25.10 ICD-9: 414.0102/ctiveInappropriate sexual behaviorICD-10: Z72.89 ICD-9: 312.8910/ctivePre-op evaluationICD-10: Z01.818 ICD-9: V72.8403/ctiveSecondary hypertensionICD-10: I15.9 ICD-9: 405.9903/3ActiveDepressionICD-10: F32.9 ICD-9: 10234/esolvedDVT (deep venous thrombosis)ICD-10: I82.409 ICD-9: 453.4009esolvedEncounter for [...] to other viral communicable diseasesICD-10: Z20.828 ICD-9: V01.7902/6884XygvkvjwLhgfunuzYqplaet85/28/2020ActiveDiabetes mellitus Type 1Jlzmkan20/28/2020ActiveAnemia in chronic kidney diseaseICD-10: D63.1 02/12/2020ResolvedHyperlipidemia, unspecifiedICD-10: E78.Resolved Medications Medication Codes Instructions Start Date Stop Date Status Fill Instructions clotrimazole 1 % topical cream RxNorm: 947305 apply one application to affected and surrounding area(s) of skin BID until clinical resolution (abdominal and thigh folds), typically 1-4 weeks.Pause nystatin powder use while using clotrimazole cream. 01/03/20 25 025 Active clotrimazole 1 % topical cream RxNorm: 230846 apply one application to affected and surrounding area(s) of skin BID until clinical resolution (abdominal and thigh folds), typically 1-4 weeks. Pause nystatin powder use while using clotrimazole cream. 01/03/20 25 025 Inactive Culturelle 10 billion cell capsule RxNorm: 571646 Take 1 Capsule(s) Oral QD 11/08/19 25 026 Active Culturelle 10 billion cell capsule RxNorm: 569386 Take 1 Capsule(s) Oral QD 11/08/19 25 025 Inactive hydrocodone 5 mg-acetaminophen 325 mg tablet RxNorm: 340955 Take 1 Tablet(s) Oral Q4H every four hours as needed for pain PRN for severe acute dental pain 10/21/19 25 025 Inactive penicillin V potassium 500 mg tablet RxNorm: 779062 Take 1 Tablet(s) Oral QID Take until dental appointment per ER recommendation 10/21/19 25 025 Inactive hydrocodone 5 mg-acetaminophen 325 mg tablet RxNorm: 288477 Take 1 Tablet(s) Oral Q4H every four hours as needed for pain PRN for severe acute dental pain 10/21/19 25 025 Inactive penicillin V potassium 500 mg tablet RxNorm: 902980 Take 1 Tablet(s) Oral QID Take until dental appointment per ER recommendation 10/21/19 25 025 Inactive potassium chloride ER 20 mEq tablet,extended release RxNorm: 096657 Take 2 Tablet(s) Oral TID (dx: hypokalemia) 09/14/19 25 026 Active potassium chloride ER 20 mEq tablet,extended release RxNorm: 680282 Take 2 Tablet(s) Oral TID (dx: hypokalemia) 09/14/19 25 025 Inactive loperamide 2 mg tablet RxNorm: 334383 Take 2 Tablet(s) Oral UD as directed [...] Date Active senna 8.6 mg tablet RxNorm: 645213 Take 1 Tablet(s) Oral QD as needed and 1 tab BID prn 09/06/19 No Stop Date Active cyclobenzaprine 10 mg tablet RxNorm: 386022 Take 1 Tablet(s) Oral QHS every night at bedtime as needed 09/06/19 25 No Stop Date Active loperamide 2 mg tablet RxNorm: 278937 Take 2 Tablet(s) Oral UD as directed as needed 2 tabs after first loose stool then 1 tab after each subsequent stool PRN Do not exceed 4 doses in 24 hours. Do not administer until after 3 loose stools. 09/06/19 25 026 Active pioglitazone 15 mg tablet RxNorm: 231644 Take 1 Tablet(s) Oral QD 09/06/19 25 No Stop Date Active loperamide 2 mg tablet RxNorm: 731294 Take 2 Tablet(s) Oral UD as directed as needed 2 tabs after first loose stool then 1 tab after each subsequent stool PRN Do not exceed 4 doses in 24 hours. Do not administer until after 3 loose stools. 09/06/19 25 025 Inactive pregabalin 100 mg capsule RxNorm: 458542 1 CAPSULE BY MOUTH EVERY MORNING (DX: NEUROPATHY) 08/23/19 25 025 Active FACILITY IS REQUESTING REFILL. PRIOR RX HAS BEEN EXHAUSTED. THANK YOU. pregabalin 150 mg capsule RxNorm: 786576 1 CAPSULE BY MOUTH AT BEDTIME (DX: NEUROPATHY) 08/21/19 25 Inactive FACILITY IS REQUESTING A REFILL OF THIS MEDICATION, THANK YOU! senna 8.6 mg tablet RxNorm: 488400 Take 1 Tablet(s) Oral QD as needed for constipation on day 2 of no bowel movement 08/09/19 25 Inactive Miralax 17 gram/dose oral powder RxNorm: 265779 Administer 17 Gram(s) Oral QD as needed for constipation on day 3 of no bowel movement 08/09/19 25 025 Inactive senna 8.6 mg tablet RxNorm: 944407 Take 1 Tablet(s) Oral QD as needed for constipation on day 2 of no bowel movement 08/09/19 25 025 Inactive Miralax 17 gram/dose oral powder RxNorm: 512847 Administer 17 Gram(s) Oral QD as needed for constipation on day 3 of no bowel movement 08/09/19 025 Inactive pregabalin 100 mg capsule RxNorm: 193024 Take 1 Capsule(s) Oral QAM every morning [...] (Concentrated) Insulin 500 unit/mL subcutaneous soln RxNorm: 276972 Inject 100 Unit(s) Subcutaneous AC before meals Three times daily before meals. 07/24/19 25 025 Inactive ammonium lactate 12 % topical cream RxNorm: 201011 Apply 1 Application Topical BID 07/20/19 25 No Stop Date Active ezetimibe 10 mg tablet RxNorm: 485306 Take 1 Tablet(s) Oral QD 07/18/19 25 No Stop Date Active senna 8.6 mg tablet RxNorm: 431904 Take 1 Tablet(s) Oral QD 07/18/19 25 025 Inactive metoprolol succinate ER 200 mg tablet,extended release 24 hr RxNorm: 278811 Take 1 Tablet(s) Oral QD 06/19/19 25 No Stop Date Active pantoprazole 40 mg tablet,delayed release RxNorm: 501990 Take 1 Tablet(s) Oral QAM every morning 06/19/19 25 No Stop Date Active hydralazine 50 mg tablet RxNorm: 522097 Take 1 Tablet(s) Oral QID 06/19/19 25 No Stop Date Active carbamazepine 200 mg tablet RxNorm: 495664 Take 1 Tablet(s) Oral BID 06/19/19 25 No Stop Date Active amlodipine 10 mg tablet RxNorm: 533902 Take 1 Tablet(s) Oral QD 06/19/19 25 No Stop Date Active Eliquis 5 mg tablet RxNorm: 6084147 Take 1 Tablet(s) Oral BID 06/19/19 25 No Stop Date Active pen needle, diabetic 30 gauge x 3/16 RxNorm: Use 1 6 times per day w/insulin 06/14/19 25 026 Active pen needle, diabetic 30 gauge x 3/16 RxNorm: Use 1 needle 6 times per day w/insulin 06/14/19 25 025 Inactive nystatin 100,000 unit/gram topical powder RxNorm: 461505 Apply 1 Application Topical BID as needed abdominal/breast/ groin folds 05/24/19 25 026 Active pregabalin 100 mg capsule RxNorm: 251637 Take 1 Capsule(s) Oral QAM every morning 05/22/19 25 025 Inactive nystatin 100,000 unit/gram topical powder RxNorm: 582236 Apply 1 Application Topical BID as needed abdominal/breast/ groin folds 04/11/20 24 11/26/2 024 Inactive chlorthalidone 25 mg tablet RxNorm: 183714 Take 1 Tablet(s) Oral QAM every morning 04/06/20 No Stop Date Active pregabalin 150 mg capsule RxNorm: 324295 Take 1 Capsule(s) Oral QHS every night at bedtime 03/31/20 Inactive Vascepa 1 gram capsule RxNorm: 6918794 Take 2 Capsule(s) Oral BID 03/30/20 Active rosuvastatin 40 mg tablet RxNorm: 867433 1 TAB ORALLY EVERY EVENING (DX:CORONARY ARTERY DISEASE) 03/28/20 No Stop Date Active venlafaxine ER 75 mg capsule,extended release 24 hr RxNorm: 040411 3 CAPS (225MG) ORALLY DAILY (DX: MOOD DISORDER) 03/28/20 No Stop Date Active pregabalin 100 mg capsule RxNorm: 329362 Take 1 Capsule(s) Oral QAM every morning 03/20/20 Inactive cholecalciferol (vitamin D3) 1,250 mcg (50,000 unit) capsule RxNorm: 623909 Take 1 Capsule(s) Oral QW once a [...] Insulin 100 unit/mL (3 mL) subcutaneous RxNorm: 2611224 Inject 40 Unit(s) Subcutaneous BID 03/07/20 025 Inactive Please dispense one month supply. Humulin R U-500 (Concentrated) Insulin 500 unit/mL subcutaneous soln RxNorm: 183229 Inject 100 Unit(s) Subcutaneous AC before meals [...] PRN) to be use with new Accu [place] meter 03/04/20 Inactive ok to substitute with any covered alternative test strip FreeStyle Chema 2 Sensor kit RxNorm: Use UD as directed 03/02/20 Inactive Pen Needle 30 gauge x 09/29 RxNorm: Pen(s) Use 1 needle as directed TID 03/02/20 Inactive nystatin 100,000 unit/gram topical powder RxNorm: 127773 Apply 1 Application Topical BID as needed [...] (Concentrated) Insulin 500 unit/mL subcutaneous soln RxNorm: 022999 Inject 100 Unit(s) Subcutaneous TID 02/17/20 24 024 Inactive Humulin R U-500 (Concentrated) Insulin 500 unit/mL subcutaneous soln RxNorm: 691747 Inject 100 Unit(s) Subcutaneous TID 02/10/20 24 024 Inactive Tusharagldestin MendenhallPen U-100 Insulin 100 unit/mL (3 mL) subcutaneous RxNorm: 9824124 Inject 30 Unit(s) Subcutaneous BID 02/10/20 24 024 Inactive Please dispense one month supply. pregabalin 100 mg capsule RxNorm: 329260 Take 1 Capsule(s) Oral QAM every morning 02/07/20 24 024 Inactive isosorbide mononitrate ER 60 mg tablet,extended release 24 hr RxNorm: 362179 Take 1 Tablet(s) Oral QD 02/01/20 24 025 Inactive aripiprazole 15 mg tablet RxNorm: 073960 Take 1/2 Tablet(s) Oral QD 02/01/20 24 025 Inactive torsemide 20 mg tablet RxNorm: 709748 1 TAB ORALLY DAILY (DX: EDEMA) 01/27/20 No Stop Date Active potassium chloride ER 20 mEq tablet,extended release(part/cryst) RxNorm: 1097578 2 TABS (40MEQ) ORALLY TWICE DAILY (DX: HYPOKALEMIA) 01/27/20 24 025 Inactive cephalexin 500 mg capsule RxNorm: 553811 Take 1 Capsule(s) Oral QID 12/17/19 24 024 Inactive cephalexin 500 mg capsule RxNorm: 173502 Take 1 Capsule(s) Oral QID 12/17/19 24 024 Inactive acetaminophen 500 mg tablet RxNorm: 281273 (MAX APAP:4GM/24HR) Take 1 Tablet(s) Oral TID as needed for pain 12/10/19 24 024 Inactive torsemide 20 mg tablet RxNorm: 955832 Take 1 Tablet(s) Oral QD 10/26/19 24 024 Inactive potassium chloride ER 20 mEq tablet,extended release RxNorm: 917215 Take 2 Tablet(s) Oral BID 10/26/19 24 024 Inactive torsemide 20 mg tablet RxNorm: 548024 Take 1 Tablet(s) Oral QD 10/26/19 24 Inactive potassium chloride ER 20 mEq tablet,extended release RxNorm: 396990 Take 2 Tablet(s) Oral BID 10/26/19 24 Inactive Artificial Tears (PF) 0.1 %-0.3 % drops in a dropperette RxNorm: 645304 Apply 1-2 Drop(s) Both eyes BID as needed 09/28/19 24 Inactive erythromycin 5 mg/gram (0.5 %) eye ointment RxNorm: 525142 Apply 1 Application Both eyes QHS every night at bedtime Instill ~1 cm ribbon into affected eye 09/28/19 24 Inactive Artificial Tears (PF) 0.1 %-0.3 % drops in a dropperette RxNorm: 535884 Apply 1-2 Drop(s) Both eyes BID as needed 09/28/19 24 Inactive erythromycin 5 mg/gram (0.5 %) eye ointment RxNorm: 237949 Apply 1 Application Both eyes QHS every night at bedtime Instill ~1 cm ribbon into affected eye 09/28/19 24 024 Inactive acetaminophen 500 mg tablet RxNorm: 038571 (MAX APAP:4GM/24HR) Take 1 Tablet(s) Oral TID as needed for pain 09/24/19 24 Inactive carvedilol 25 mg tablet RxNorm: 132772 Take 1 Tablet(s) Oral QD 09/08/19 24 No Stop Date Active pregabalin 100 mg capsule RxNorm: 042646 Take 1 Capsule(s) Oral QAM every morning 09/07/19 24 024 Inactive bisacodyl 10 mg rectal suppository RxNorm: 588992 Insert 1 Suppository Rectal QD as needed 07/13/19 24 No Stop Date Active ketoconazole 2 % shampoo RxNorm: 247969 Apply 1 Application Topical UD as directed 07/13/19 24 No Stop Date Active Ozempic 1 mg/dose (4 mg/3 mL) subcutaneous pen injector RxNorm: 1915610 Inject 1 Milligram(s) Subcutaneous QW once a week 07/13/19 No Stop Date Active Guaifenesin AC 10 mg-100 mg/5 mL oral liquid RxNorm: 229290 Take 10 Milliliter(s) Oral Q4H every four hours as needed 07/13/19 No Stop Date Active hydrocortisone 2.5 % topical cream RxNorm: 537934 Apply 1 Application Topical BID as needed 07/13/19 No Stop Date Active rosuvastatin 40 mg tablet RxNorm: 785137 Take 1 Tablet(s) Oral QPM every evening 07/13/19 024 Inactive ezetimibe 10 mg tablet RxNorm: 166753 Take 1 Tablet(s) Oral QD 07/13/19 24 025 Inactive polyethylene glycol 3350 17 gram/dose oral powder RxNorm: 377372 Take 17 Gram(s) Oral BID as needed mix in 4-8ox water 07/13/19 24 025 Inactive aripiprazole 15 mg tablet RxNorm: 168761 Take 1/2 Tablet(s) Oral QD 07/13/19 24 024 Inactive isosorbide mononitrate ER 60 mg tablet,extended release 24 hr RxNorm: 982297 Take 1 Tablet(s) Oral QD 07/13/19 24 024 Inactive ammonium lactate 12 % topical cream RxNorm: 663546 Apply 1 Application Topical BID 07/13/19 24 025 Inactive rosuvastatin 20 mg sprinkle capsule RxNorm: 6550975 Take 1 Capsule(s) Oral QD 07/13/19 24 025 Inactive Vascepa 1 gram capsule RxNorm: 1362182 Take 2 Capsule(s) Oral BID 07/13/19 24 024 Inactive venlafaxine ER 75 mg capsule,extended release 24 hr RxNorm: 713063 Take 3 Capsule(s) Oral QD 07/13/19 24 024 Inactive Basaglar KwikPen U-100 Insulin 100 unit/mL (3 mL) subcutaneous RxNorm: 1088649 Inject 30U SubQ twice daily 07/07/19 24 024 Inactive Please dispense one month supply. Basaglar KwikPen U-100 Insulin 100 unit/mL (3 mL) subcutaneous RxNorm: 4852614 Inject 30U SubQ twice daily 07/07/19 24 024 Inactive Please dispense one month supply. pregabalin 150 mg capsule RxNorm: 413379 Take 1 Capsule(s) Oral QHS every night at bedtime 07/05/19 24 024 Inactive pregabalin 150 mg capsule RxNorm: 757807 Take 1 Capsule(s) Oral QHS every night at bedtime 07/05/19 24 024 Inactive polyethylene glycol 3350 17 gram/dose oral powder RxNorm: 840681 Take 1 Packet Oral QD as needed (1 packet = 17g) mix with 4-8oz of liquid 06/15/19 24 024 Inactive bisacodyl 10 mg rectal suppository RxNorm: 226981 Insert one suppository per rectum once daily as needed for constipation 06/15/19 24 024 Inactive bisacodyl 10 mg rectal suppository RxNorm: 921491 Insert one suppository per rectum once daily as needed for constipation 06/15/19 24 024 Inactive pregabalin 100 mg capsule RxNorm: 203285 Take 1 Capsule(s) Oral QAM every morning 04/27/20 23 024 Inactive Levemir FlexPen 100 unit/mL (3 mL) solution subcutaneous insulin pen RxNorm: 457217 Inject 30 Unit(s) Subcutaneous BID 04/27/20 23 024 Inactive rosuvastatin 40 mg tablet RxNorm: 191282 Take 1 Tablet(s) Oral QPM every evening 04/16/20 024 Inactive D/C rosuvastatin 20mg venlafaxine ER 75 mg capsule,extended release 24 hr RxNorm: 115287 Take 3 Capsule(s) Oral QD 04/14/20 23 023 Inactive pregabalin 100 mg capsule RxNorm: 673917 Take 1 Capsule(s) Oral QAM every morning [...] strip clotrimazole 1 % topical cream RxNorm: 659230 Take apply topically to abdominal folds twice daily for 14 days 03/12/20 23 024 Inactive Ozempic 1 mg/dose (4 mg/3 mL) subcutaneous pen injector RxNorm: 2523426 Inject 1 Milligram(s) Subcutaneous QW once a week 03/11/20 23 023 Inactive rosuvastatin 20 mg tablet RxNorm: 702294 Take 1 Tablet(s) Oral QD 02/26/20 23 023 Inactive d/c pravastatin 80mg Ozempic 1 mg/dose (4 mg/3 mL) subcutaneous pen injector RxNorm: 0003848 Inject 1 Milligram(s) Subcutaneous QW once a week 02/20/20 23 023 Inactive pregabalin 150 mg capsule RxNorm: 344692 Take 1 Capsule(s) Oral HS at bed time 02/19/20 23 023 Inactive pregabalin 100 mg capsule RxNorm: 101522 Take 1 Capsule(s) Oral QAM every morning 02/18/20 23 023 Inactive venlafaxine ER 75 mg capsule,extended release 24 hr RxNorm: 171993 Take 3 Capsule(s) Oral QD 02/04/20 23 023 Inactive FreeStyle Chema 2 Sensor kit RxNorm: use as directed 02/04/20 23 023 Inactive FreeStyle Chema 2 Sensor kit RxNorm: use as directed 02/04/20 23 024 Inactive fluconazole 150 mg tablet RxNorm: 843201 Take 1 Tablet(s) Oral on day 3 and on day 6 02/03/20 23 024 Inactive venlafaxine ER 150 mg capsule,extended release 24 hr RxNorm: 252876 Take 1 Capsule(s) Oral QD 02/03/20 23 023 Inactive chlorthalidone 25 mg tablet RxNorm: 981876 Take 1 Tablet(s) Oral QAM every morning 02/03/20 024 Inactive acetaminophen 500 mg tablet RxNorm: 036569 1 TABLET ORALLY 3 TIMES DAILY (MAX APAP:4GM/24HR) 12/15/19 023 Inactive potassium chloride ER 20 mEq tablet,extended release RxNorm: 189487 Take 1 Tablet(s) Oral BID 12/09/19 024 Inactive d/c 20mEq once daily (sent from hospital) clotrimazole 1 % topical cream RxNorm: 326053 apply 1g topically to top of feet and in between toes BID 12/09/19 23 025 Inactive nystatin 100,000 unit/gram topical powder RxNorm: 843983 APPLY TO AFFECTED AREAS TOPICALLY 2 TIMES DAILY 11/21/19 23 023 Inactive Nystop 100,000 unit/gram topical powder RxNorm: 155791 Apply to abd folds, under breasts and L side of groin Topical BID x 14 days, then BID PRN 11/20/19 023 Inactive dx: yeast dermatitis [place] Ultra Strength 4 %-30 %-10 % topical cream RxNorm: 734252 Apply 1 Gram(s) Topical QID PRN to feet and legs for neuropathic pain 11/11/19 024 Inactive hydrocortisone 2.5 % topical cream RxNorm: 407009 Apply 1/2 Gram(s) Topical BID as needed 11/10/19 024 Inactive clotrimazole 1 % topical cream RxNorm: 285922 Apply 1/2 Gram(s) Topical BID Apply to affected areas of groin, periarea, and abdominal topically 2 times daily 11/10/19 025 Inactive Levemir FlexPen 100 unit/mL (3 mL) solution subcutaneous insulin pen RxNorm: 574461 Inject 30 Unit(s) Subcutaneous BID 10/07/19 23 023 Inactive Humulin R U-500 (Concentrated) Insulin 500 unit/mL subcutaneous soln RxNorm: 397990 Inject 100 Unit(s) Subcutaneous TID 10/07/19 024 Inactive Ozempic 0.25 mg or 0.5 mg (2 mg/3 mL) subcutaneous pen injector RxNorm: 0742758 Inject 1/2 Milligram(s) Subcutaneous QW once a week 10/07/19 024 Inactive aripiprazole 15 mg tablet RxNorm: 070710 1/2 TAB (7.5MG) ORALLY DAILY (DX:MAJOR DEPRESSIVE DISORDER) 09/23/19 023 Inactive Accu-Chek Guide test strips RxNorm: Use 1 Test Strip QID 09/15/19 023 Inactive ok to substitute with any covered alternative test strip Lancets,Thin 28 gauge RxNorm: Use 1 as directed QID 09/15/19 023 Inactive torsemide 20 mg tablet RxNorm: 418393 Take 1 Tablet(s) Oral BID 09/09/19 024 Inactive d/c once daily dosing carvedilol 25 mg tablet RxNorm: 401843 Take 1 Tablet(s) Oral QD 08/25/19 024 Inactive pregabalin 150 mg capsule RxNorm: 558063 1 Capsule(s) Oral HS at bed time 08/18/19 023 Inactive pregabalin 100 mg capsule RxNorm: 073190 1 Capsule(s) Oral QAM every morning 08/18/19 023 Inactive carvedilol 25 mg tablet RxNorm: 125039 1 Tablet(s) Oral QD 07/28/19 023 Inactive lisinopril 20 mg tablet RxNorm: 672301 Give 1 Tablet(s) Oral QD 07/28/19 23 023 Inactive Lyrica 150 mg capsule RxNorm: 294617 Take 1 Capsule(s) Oral QHS every night at bedtime 07/19/19 023 Inactive d/c 100mg dose Diflucan 150 mg tablet RxNorm: 267528 Take 1 Tablet(s) Oral QD repeat on day 3 and 6 07/19/19 23 023 Inactive pregabalin 100 mg capsule RxNorm: 040688 Take 1 Capsule(s) Oral QAM every morning 07/19/19 23 023 Inactive gatifloxacin 0.5 % eye drops RxNorm: 864003 Instill 1 Drop(s) as directed TID Instill 1 drop in to affected eye(s) starting 1 day prior to surgery and continue until gone (do not exceed 4 weeks). 07/13/19 23 023 Inactive carvedilol 25 mg tablet RxNorm: 267435 2 Tablet(s) Oral BID 07/13/19 023 Inactive Humulin R Regular U-100 Insulin 100 unit/mL injection solution RxNorm: 158882 85 Unit(s) Injection TID 07/13/19 023 Inactive ketorolac 0.5 % eye drops RxNorm: 158395 Instill 1 Drop(s) as directed QID Instill 1 drop into affected eye(s) 4 times daily starting 1 day prior to surgery and continue until gone (do not exceed 4 weeks). 07/13/19 023 Inactive Diflucan 150 mg tablet RxNorm: 433197 Take 1 Tablet(s) Oral QD repeat on day 3 and 6 06/30/19 23 023 Inactive Accu-Chek Guide test strips RxNorm: Use 1 Test Strip QID Use 1 test strip to monitor blood glucose 4 times daily and as needed. Dx:E11.42. 06/23/19 023 Inactive ok to substitute with any covered alternative test strip dextromethorphan-gu aifenesin 10 mg-100 mg/5 mL oral liquid RxNorm: 331115 Take 10 Milliliter(s) Oral every 4 hours as needed for cough 06/19/19 023 Inactive dextromethorphan-gu aifenesin 10 mg-100 mg/5 mL oral liquid RxNorm: 727759 Take 10 Milliliter(s) Oral every 4 hours as needed for cough 06/19/19 23 023 Inactive Lyrica 150 mg capsule RxNorm: 875738 Take 1 Capsule(s) Oral QHS every night at bedtime 06/18/19 23 023 Inactive d/c 100mg dose aripiprazole 15 mg tablet RxNorm: 188245 /2 TAB (7.5MG) ORALLY DAILY (DX:MAJOR DEPRESSIVE DISORDER) 06/05/19 023 Inactive pregabalin 100 mg capsule RxNorm: 682740 1 Capsule(s) Oral QAM every morning 06/02/19 23 023 Inactive Banophen 50 mg capsule RxNorm: 1546817 Take 1 Capsule(s) Oral Q6H every 6 hours as needed 05/19/19 23 No Stop Date Active Novolog Flexpen U-100 Insulin aspart 100 unit/mL (3 mL) subcutaneous RxNorm: 9295681 Inject 10 Unit(s) Subcutaneous QHS every night at bedtime with nighttime snack 04/08/20 022 Inactive Novolog Flexpen U-100 Insulin aspart 100 unit/mL (3 mL) subcutaneous RxNorm: 5939484 Inject 42 Unit(s) Subcutaneous TID in addition to sliding scale 04/08/20 022 Inactive d/c 36u albuterol sulfate HFA 90 mcg/actuation aerosol inhaler RxNorm: 3186934 Take 2 Puff(s) Inhalation Q4H every four hours as needed as needed for SOB, cough, or wheezing 04/07/20 030 Active Banophen 50 mg capsule RxNorm: 9529585 Take 1 Capsule(s) Oral Q6H every 6 hours as needed 04/06/20 023 Inactive diphenhydramine 50 mg tablet RxNorm: 5421991 Take 1 Tablet(s) Oral Q6H every 6 hours as needed 04/06/20 22 022 Inactive diphenhydramine 50 mg tablet RxNorm: 9875906 1 Tablet(s) Oral Q6H every 6 hours as needed 04/06/20 22 022 Inactive Abilify 15 mg tablet RxNorm: 033198 1/2 Tablet(s) Oral QD 03/10/20 22 023 Inactive Shingrix (PF) 50 mcg/0.5 mL intramuscular suspension, kit RxNorm: 5827998 Administer 1/2 Milliliter(s) Intramuscular QD one time shingrix step 2 ( step 1 given 11/04/21) WITH needle - Nursing please administer upon arrival and once administered post a bridge message with date of administration, body worker, expiration date, and lot# so we can update [facility] 02/18/20 22 022 Inactive dispense with needle Shingrix (PF) 50 mcg/0.5 mL intramuscular suspension, kit RxNorm: 4610029 Administer 1/2 Milliliter(s) Intramuscular QD one time shingrix step 2 ( step 1 given 11/04/21) WITH needle - Nursing please administer upon arrival and once administered post a bridge message with date of administration, body worker, expiration date, and lot# so we can update [facility] 02/18/20 22 022 Inactive dispense with needle Lyrica 100 mg capsule RxNorm: 313222 Take 1 Capsule(s) Oral QAM every morning 01/08/20 22 022 Inactive d/c 50mg dose acetaminophen 500 mg tablet RxNorm: 158684 Take 1 Tablet(s) Oral TID 01/08/20 22 022 Inactive d/c PRN order Lyrica 150 mg capsule RxNorm: 217117 Take 1 Capsule(s) Oral QHS every night at bedtime 01/08/20 22 023 Inactive d/c 100mg dose polyethylene glycol 3350 17 gram/dose oral powder RxNorm: 291377 Take 17=1 capful Gram(s) Oral QD mix with 4-8oz of liquid 01/08/20 22 025 Inactive take this in addition to BID prn order Abilify 5 mg tablet RxNorm: 514274 Take 1 Tablet(s) Oral QD take 1 tab po QD #30 refill 5 dx: MDD 12/12/19 22 022 Inactive Abilify 5 mg tablet RxNorm: 414457 Take 1 Tablet(s) Oral QD take 1 tab po QD #30 refill 5 dx: MDD 12/12/19 22 022 Inactive Novolog Flexpen U-100 Insulin aspart 100 unit/mL (3 mL) subcutaneous RxNorm: 0701120 Inject 42 Unit(s) Subcutaneous TID in addition to sliding scale 12/10/19 22 022 Inactive d/c 36u chlorthalidone 25 mg tablet RxNorm: 020003 Take 1 Tablet(s) Oral QAM every morning 12/10/19 22 023 Inactive pregabalin 50 mg capsule RxNorm: 804700 Take 1 Capsule(s) Oral QAM every morning 11/12/19 22 022 Inactive tetanus-diphtheria toxoids-Td 2 Lf unit-2 Lf unit/0.5 mL IM suspension RxNorm: 139 Take 0.5 Miscellaneous Intramuscular 11/12/19 22 022 Inactive need tdap - nursing to administer upon arrival pregabalin 50 mg capsule RxNorm: 625562 Take 1 Capsule(s) Oral QAM every morning 10/16/19 22 022 Inactive pregabalin 50 mg capsule RxNorm: 181291 Take 1 Capsule(s) Oral QAM every morning 10/16/19 22 022 Inactive pregabalin 50 mg capsule RxNorm: 415044 1 Capsule(s) Oral QAM every morning 10/15/19 22 022 Inactive Shingrix (PF) 50 mcg/0.5 mL intramuscular suspension, kit RxNorm: 0048374 Administer 1/2 Milliliter(s) Intramuscular one time Nursing please administer upon arrival and once administered post a bridge message with date of administration, body worker, expiration date, and lot# so we can update [facility]. 10/09/19 22 022 Inactive shingrix step 1 Shingrix (PF) 50 mcg/0.5 mL intramuscular suspension, kit RxNorm: 8972164 Administer 1/2 Milliliter(s) Intramuscular one time Nursing please administer upon arrival and once administered post a bridge message with date of administration, body worker, expiration date, and lot# so we [...] aspart 100 unit/mL (3 mL) subcutaneous RxNorm: 5388686 Inject 10 Unit(s) Subcutaneous QHS every night at bedtime with nighttime snack 10/08/19 22 022 Inactive Shingrix (PF) 50 mcg/0.5 mL intramuscular suspension, kit RxNorm: 0593573 ADMINISTER 2-DOSE SERIES PER CDC GUIDELINES 10/08/19 22 022 Active Shingrix (PF) 50 mcg/0.5 mL intramuscular suspension, kit RxNorm: 1501035 ADMINISTER 2-DOSE SERIES PER CDC GUIDELINES 10/08/19 22 Inactive Novolog Flexpen U-100 Insulin aspart 100 unit/mL (3 mL) subcutaneous RxNorm: 4521297 Inject 36 Unit(s) Subcutaneous TID in addition to sliding scale 10/08/19 Inactive cholecalciferol (vitamin D3) 1,250 mcg (50,000 unit) capsule RxNorm: 166518 Take 1 Capsule(s) Oral QW once a week 10/08/19 024 Inactive Novofine Autocover 30 gauge x 1/3 needle RxNorm: Use 1 Miscellaneous UD as directed Use 1 needle as directed to administer insulin 5 times a day Dx:E11.42. 10/03/19 022 Inactive ok to substitute with any covered alternative pen needle benzoyl peroxide 10 % topical cleanser RxNorm: 619947 Apply 1 Application Topical QD apply to face, wash rinse and dry once daily (may change to QOD if drying) 08/19/19 22 022 Inactive (%covered by insurance) #60ml refill 11 dx: acne benzoyl peroxide 10 % topical cleanser RxNorm: 160094 Apply 1 Application Topical QD apply to face, wash rinse and dry once daily (may change to QOD if drying) 08/19/19 22 022 Inactive (%covered by insurance) #60ml refill 11 dx: acne benzoyl peroxide 10 % topical cleanser RxNorm: 966129 Apply 1 Application Topical QD apply to face, wash rinse and dry once daily (may change to QOD if drying) 08/19/19 22 022 Inactive (%covered by insurance) #60ml refill 11 dx: acne Lyrica 50 mg capsule RxNorm: 236280 Take 1 Capsule(s) Oral QAM every morning Take 1 capsule by mouth once daily 08/19/19 22 022 Inactive benzoyl peroxide 10 % topical cleanser RxNorm: 233976 Apply 1 Application Topical QD apply to face, wash rinse and dry once daily (may change to QOD if drying) 08/19/19 22 022 Inactive (%covered by insurance) #60ml refill 11 dx: acne Lyrica 100 mg capsule RxNorm: 771114 Take 1 Capsule(s) Oral QHS every night at bedtime Take 1 capsule by mouth once daily at bedtime 08/19/19 22 022 Inactive Lyrica 100 mg capsule RxNorm: 923859 Take 1 Capsule(s) Oral QHS every night at bedtime Take 1 capsule by mouth once daily at bedtime 08/16/19 22 022 Inactive Lyrica 50 mg capsule RxNorm: 825906 Take 1 Capsule(s) Oral QAM every morning Take 1 capsule by mouth once daily 08/16/19 22 022 Inactive Levemir FlexTouch U-100 Insulin 100 unit/mL (3 mL) subcutaneous pen RxNorm: 070355 Inject 86 Unit(s) Subcutaneous BID 08/05/19 22 022 Inactive d/c 83units BID Lyrica 100 mg capsule RxNorm: 099021 Take 1 Capsule(s) Oral QHS every night at bedtime Take 1 capsule by mouth once daily at bedtime 07/14/19 22 022 Inactive Lyrica 50 mg capsule RxNorm: 514364 Take 1 Capsule(s) Oral QAM every morning Take 1 capsule by mouth once daily 07/14/19 22 022 Inactive Levemir FlexTouch U-100 Insulin 100 unit/mL (3 mL) subcutaneous pen RxNorm: 094345 Inject 83 Unit(s) Subcutaneous BID 07/08/19 22 [...] test strip hydralazine 50 mg tablet RxNorm: 673437 Take 1 Tablet(s) Oral QID 05/05/20 21 022 Inactive venlafaxine ER 225 mg tablet,extended release 24 hr RxNorm: 304612 Take 1 Tablet(s) Oral QD 05/05/20 21 021 Inactive venlafaxine ER 225 mg tablet,extended release 24 hr RxNorm: 281913 Take 1 Tablet(s) Oral QD 05/05/20 21 022 Inactive isosorbide mononitrate ER 30 mg tablet,extended release 24 hr RxNorm: 670397 Take 1 Tablet(s) Oral QD 05/05/20 024 Inactive hydralazine 50 mg tablet RxNorm: 594367 Take 1 Tablet(s) Oral QID 05/05/20 21 021 Inactive aspirin 81 mg tablet,delayed release RxNorm: 724465 Take 1 Tablet(s) Oral QD 03/31/20 022 Inactive Vitamin D2 1,250 mcg (50,000 unit) capsule RxNorm: 0861720 Take 1 Capsule(s) Oral QW once a week x 12 weeks 03/31/20 022 Inactive Vitamin D2 1,250 mcg (50,000 unit) capsule RxNorm: 5662008 Take 1 Capsule(s) Oral QW once a week 03/31/20 021 Inactive Zetia 10 mg tablet RxNorm: 393015 Take 1 Tablet(s) Oral QD 03/31/20 024 Inactive Zetia 10 mg tablet RxNorm: 728831 Take 1 Tablet(s) Oral QD 03/31/20 021 Inactive hydralazine 25 mg tablet RxNorm: 237864 Take 1 Tablet(s) Oral QID 03/31/20 021 Inactive hydralazine 25 mg tablet RxNorm: 957579 Take 1 Tablet(s) Oral QID 03/31/20 021 Inactive hydralazine 10 mg tablet RxNorm: 998645 Take 1 Tablet(s) Oral QID 03/03/20 021 Inactive cephalexin 500 mg tablet RxNorm: 976536 Take 1 Tablet(s) Oral QID 02/27/20 021 Inactive cephalexin 500 mg tablet RxNorm: 649645 Take 1 Tablet(s) Oral QID 02/27/20 021 Inactive lisinopril 40 mg tablet RxNorm: 419635 Take 1 Tablet(s) Oral QD 02/11/20 21 023 Inactive Eliquis 5 mg tablet RxNorm: 2541676 Take 1 Tablet(s) Oral BID 01/05/20 21 025 Inactive Eliquis 5 mg tablet RxNorm: 3656389 Take 2 Tablet(s) Oral QD 01/01/20 21 021 Inactive Lyrica 50 mg capsule RxNorm: 974543 Take 1 Capsule(s) Oral QAM every morning 12/24/19 21 021 Inactive Lyrica 100 mg capsule RxNorm: 902848 Take 1 Capsule(s) Oral QHS every night at bedtime 12/24/19 21 021 Inactive clotrimazole 1 % topical cream RxNorm: 764863 Apply to right foot and toes Topical BID 12/04/19 21 023 Inactive metoprolol succinate ER 200 mg tablet,extended release 24 hr RxNorm: 684598 Take 1 Tablet(s) Oral QD 12/04/19 21 023 Inactive ciprofloxacin 500 mg tablet RxNorm: 959325 Take 1 Tablet(s) Oral QD 11/30/19 21 021 Inactive DX ofloxacin otic drops Accu-Chek Guide test strips RxNorm: USE 1 TO CHECK GLUCOSE 4 TIMES DAILY AND NEEDED 11/15/19 21 023 Inactive Blood Glucose Test strips RxNorm: Use 1 Test Strip QID at PRN 11/05/19 21 023 Inactive E11.42 lisinopril 30 mg tablet RxNorm: 928937 Take 1 Tablet(s) Oral QD 10/30/19 021 Inactive lisinopril 20 mg tablet RxNorm: 395078 Take 1 Tablet(s) Oral QD 10/23/19 21 021 Inactive lisinopril 20 mg tablet RxNorm: 196861 Take 1 Tablet(s) Oral QD 10/23/19 21 021 Inactive lisinopril 10 mg tablet RxNorm: 501739 Take 1 Tablet(s) Oral QD 10/02/19 21 021 Inactive icosapent ethyl 1 gram capsule RxNorm: 1741234 Take 2 Capsule(s) (2 gm) Oral BID with meals 09/12/19 21 024 Inactive Okay to dispense one 2gm tab if you have that available. icosapent ethyl 1 gram capsule RxNorm: 0585968 Take 2 Capsule(s) Oral BID 09/12/19 21 021 Inactive Okay to dispense one 2gm tab if you have that available. amlodipine 10 mg tablet RxNorm: 861310 Take 1 Tablet(s) Oral QD 09/04/19 21 021 Inactive aspirin 81 mg tablet,delayed release RxNorm: 200317 Take 1 Tablet(s) Oral QD 09/04/19 021 Inactive Levemir FlexTouch U-100 Insulin 100 unit/mL (3 mL) subcutaneous pen RxNorm: 922323 Inject 150 Unit(s) Subcutaneous BID 09/04/19 21 022 Inactive venlafaxine ER 150 mg tablet,extended release 24 hr RxNorm: 992298 Take 1 Tablet(s) Oral QD 09/04/19 021 Inactive clotrimazole-betame thasone 1 %-0.05 % topical cream RxNorm: 214358 Apply to rash on red area on left abdomen/chest Topical BID 08/10/19 21 021 Inactive amlodipine 5 mg tablet RxNorm: 184768 Take 1 Tablet(s) Oral QD 07/31/19 021 Inactive cephalexin 500 mg tablet RxNorm: 996555 Take 1 Tablet(s) Oral BID BID - Twice Daily 07/31/19 21 021 Inactive Start 08/01/20 pantoprazole 40 mg tablet,delayed release RxNorm: 114225 Take 1 Tablet(s) Oral QAM every morning 07/08/19 025 Inactive clopidogrel 75 mg tablet RxNorm: 280306 Take 1 Tablet(s) Oral QD 07/08/19 21 021 Inactive Blood Glucose Test strips RxNorm: Use 1 Test Strip QID at PRN 07/08/19 21 021 Inactive E11.42 senna 8.6 mg tablet RxNorm: 047303 Take 1 Tablet(s) Oral QD 07/08/19 21 025 Inactive Novolog Flexpen U-100 Insulin aspart 100 unit/mL (3 mL) subcutaneous RxNorm: 8045834 Administer per sliding scale Milliliter(s) Subcutaneous TID 151-200: 10 u; 201-250: 20 u; 251-300: 30 u; 301-350: 40 u; 351-400: 50 u. 07/08/19 21 022 Inactive lisinopril 5 mg tablet RxNorm: 038541 Take 1 Tablet(s) Oral QD 07/08/19 21 021 Inactive Novolog Flexpen U-100 Insulin aspart 100 unit/mL (3 mL) subcutaneous RxNorm: 2764036 Inject 85 Unit(s) Subcutaneous TID 07/08/19 022 Inactive pravastatin 80 mg tablet RxNorm: 677629 Take 1 Tablet(s) Oral QHS every night at bedtime 07/08/19 023 Inactive clotrimazole 1 % topical cream RxNorm: 955934 Apply to bilateral groin areas Topical BID 07/08/19 022 Inactive metoprolol succinate ER 200 mg tablet,extended release 24 hr RxNorm: 640369 Take 1 Tablet(s) Oral QD 07/08/19 021 Inactive Vitamin D3 25 mcg (1,000 unit) tablet RxNorm: 573885 Take 1 Tablet(s) Oral QD 07/08/19 021 Inactive isosorbide dinitrate 30 mg tablet RxNorm: 202964 Take 1 Tablet(s) Oral QD 07/08/19 21 021 Inactive carbamazepine 200 mg tablet RxNorm: 313006 Take 1 Tablet(s) Oral BID 07/08/19 025 Inactive Levemir FlexTouch U-100 Insulin 100 unit/mL (3 mL) subcutaneous pen RxNorm: 004750 Inject 140 Unit(s) Subcutaneous BID 07/08/19 021 Inactive torsemide 20 mg tablet RxNorm: 161195 Take 1 Tablet(s) Oral QD 07/08/19 023 Inactive venlafaxine 75 mg tablet RxNorm: 929246 Take 1 Tablet(s) Oral QD 07/08/19 021 Inactive acetaminophen 500 mg tablet RxNorm: 945038 Take 1 Tablet(s) Oral TID as needed for headache 06/18/19 021 Inactive acetaminophen 500 mg tablet RxNorm: 803960 Take 1 Tablet(s) Oral TID as needed for headache 06/18/19 21 Inactive Lyrica 100 mg capsule RxNorm: 218256 Take 1 Capsule(s) Oral QHS every night at bedtime 06/11/19 21 021 Inactive Lyrica 50 mg capsule RxNorm: 055910 Take 1 Capsule(s) Oral QAM every morning 06/10/19 21 021 Inactive hydrocortisone 2.5 % topical cream RxNorm: 192640 Apply to bilateral groin creases Topical BID 05/15/20 20 021 Inactive clotrimazole 1 % topical cream RxNorm: 760963 Apply to bilateral groin areas Topical BID 05/15/20 20 021 Inactive Lyrica 50 mg capsule RxNorm: 456992 Take 1 Capsule(s) Oral QAM every morning 05/14/20 20 020 Inactive Lyrica 100 mg capsule RxNorm: 459469 Take 1 Capsule(s) Oral QHS every night [...] Inactive Nystop 100,000 unit/gram topical powder RxNorm: 602827 Apply to abd folds, under breasts and L side of groin Topical BID x 14 days, then BID PRN 04/08/20 20 020 Inactive dx: yeast dermatitis Lyrica 100 mg capsule RxNorm: 064871 Take 1 Capsule(s) Oral QHS every night at bedtime 03/13/20 20 Inactive Lyrica 50 mg capsule RxNorm: 948329 Take 1 Capsule(s) Oral QAM every morning 03/13/20 20 Inactive ketoconazole 2 % shampoo RxNorm: 774243 Apply Topical two times a week with showers 03/11/20 20 Inactive cholecalciferol (vitamin D3) 50 mcg (2,000 unit) tablet RxNorm: 580457 Take 1 Tablet(s) Oral QD 03/11/20 20 Inactive Zetia 10 mg tablet RxNorm: 942254 Take 1 Tablet(s) Oral QD 03/07/20 20 021 Inactive Zetia 10 mg tablet RxNorm: 214264 Take 1 Tablet(s) Oral QD 03/07/20 20 Inactive Lyrica 50 mg capsule RxNorm: 171287 Take 1 Capsule(s) Oral QAM every morning 02/15/20 20 Inactive Lyrica 100 mg capsule RxNorm: 280570 Take 1 Capsule(s) Oral QHS every night at bedtime 02/15/20 20 Inactive Lyrica 100 mg capsule RxNorm: 522458 Take 1 Capsule(s) Oral QHS every night at bedtime 02/15/20 20 Inactive Lyrica 50 mg capsule RxNorm: 625685 Take 1 Capsule(s) Oral QAM every morning 02/15/20 20 Inactive venlafaxine ER 75 mg capsule,extended release 24 hr RxNorm: 781614 Take 3 Capsule(s) Oral QD 06/12/19 22 023 Inactive polyethylene glycol 3350 17 gram/dose oral powder RxNorm: 924659 Take 17=1 capful Gram(s) Oral BID as needed mix with 4-8oz of liquid 06/12/19 22 024 Inactive icosapent ethyl 1 gram capsule RxNorm: 0533044 Take 2 Capsule(s) (2 gm) Oral BID with meals 10/07/19 023 Inactive Okay to dispense one 2gm tab if you have that available. Levemir FlexTouch U-100 Insulin 100 unit/mL (3 mL) subcutaneous pen RxNorm: 733489 Inject 80 Unit(s) Subcutaneous BID 07/14/19 23 023 Inactive metoprolol succinate ER 200 mg tablet,extended release 24 hr RxNorm: 180481 Take 1 Tablet(s) Oral QD 08/12/19 025 Inactive loperamide 2 mg capsule RxNorm: 324412 Take 1 Capsule(s) Oral QID as needed 09/06/19 025 Inactive hydralazine 50 mg tablet RxNorm: 228225 Take 1 Tablet(s) Oral QID 08/12/19 025 Inactive Soft Touch Lancets RxNorm: miscellaneous 03/04/20 24 025 Inactive Novolog Flexpen U-100 Insulin aspart 100 unit/mL (3 mL) subcutaneous RxNorm: 6833452 Insert 30 Unit(s) Subcutaneous TID with meals [...] CVX: 115 2008 Procedures Procedure Codes Date DEPRESSION SCREEN ANNUAL CPT-4: G0444 025 PT INELIG NEG SCRN DEPRES SNOMED CT: 428 [id number] CPT-4: T360097REMIS 12M NOT PHQ-9 SCORE <5CPT-4: T154519 DEPRESSION SCREEN ANNUALCPT-4: U279630PT INELIG NEG SCRN DEPRESSNOMED CT: [id number] CPT-4: REMIS 12M NOT PHQ-9 SCORE <5CPT-4: W756681Toenail DebridementCPT-4: 774766601/09/2025DEPRESSION SCREEN ANNUALCPT-4: E409152 PT INELIG NEG SCRN DEPRESSNOMED CT: [id number] CPT-4: L379095HG A1C LEVEL 7.0-7.9%CPT-4: 6210I0101/09/2025SYS BP LESS 140 CPT-4: N698405DIAS BP LESS 90CPT-4: X999054REMIS 12M NOT PHQ-9 SCORE <5CPT-4: Vital Signs Date Vital 01/09/2025 Blood Pressure 1: 134/78 Code: 8480-6 BMI: NaN Code: 95613-6 Heart Rate 1: 82 bpm Code: 8867-4 Height: 5'4 Code: 8302-2 Temperature: 36.7 (C) / 98.0 (F) Weight: [...] Performer Location Location Address Codes Cristiano e ([id number]) Home Visit - Est Pt, moderate Diagnosis: Candidal intertrigo[ICD10: B37.2] Diagnosis: Hypokalemia[ICD10: E87.6] Diagnosis: Pulmonary nodule[ICD10: R91.1] Diagnosis: Type 2 diabetes mellitus with diabetic polyneuropathy, with long-term current use of insulin[ICD10: E11.42] Diagnosis: Hypertensive heart disease without heart failure[ICD10: I11.9] Diagnosis: Type 2 diabetes mellitus with diabetic chronic kidney disease[ICD10: E11.22] Diagnosis: CKD stage 3a, GFR 45-59 ml/min[SNOMED: 138909586] Diagnosis: Onychogryposis[ICD10: L60.2]Harrison MunsonThe [address] on [id number] [place] [id number]-6: [id number] Plan of Care Planned Activity Notes Codes Status Date Referral: [facility] Radiology/Imaging WPtel: [address] [facility] USReferralNo Records Psxnusou68/06/2025ppointment: Harrison Munson WPtel: [address] USF/U008/08/2024ppointment: Harrison Munson WPtel: [address] [facility] 300 [id number] USF/U007/11/2024Referral: [facility]/Endocrinology WPtel: [address] [place] [address] 3 [id number] USReferralNo Records Zaodguxz23/24/2025ppointment: Harrison Munson WPtel: [address] [facility] 300 [id number] USAWV02/08/2024ppointment: Harrison Munson WPtel: [address] [facility] 300 [id number] US/U001/11/2024ppointment: Sandra Clark WPtel: [address] [facility] 300 [id number] [facility]/09/2022ppointment: Tapan Shirley WPtel: [address] [facility] 300 [id number] USTCM10/26/2022Referral: [facility] WPtel: [address] , [address] [id number] USReferralRecords Pfimwslh21/08/2023ppointment: Tapan Shirley WPtel: [address] [facility] 300 [id number] USF/U008/11/2022ppointment: Tapan Shirley WPtel: [address] [facility] 300 [id number] USF/U007/14/2022ppointment: Tapan Shirley WPtel: [address] [facility] 300 [id number] US/U02Referral: [facility] WPtel: [address] [facility] [address] [id number] ONHzrepyugMhayqxgdg25/12/2022Referral: General CardiologyReferralCompleted 1Referral: General PsychologistReferralClosedReferral: General PsychiatristReferralPatient/Family Scheduling AppointmentReferral: [facility] WPtel: [phone] USReferralFacility Scheduling AppointmentReferral: General Physical Medicine ReferralFacility [...] Sister Jyotsna involved in his care cell# [phone] Guardian: Giulia (tapan met in person 09/01/21), [...] - next visit will order K recheck 6.9.2024: Potassium recheck 4.0. 12.26.2024: BMP K 4.0, Na 138, Creatinine 1.35H, eGFR 58L, BUN 24.9H. Ca 9.0. BG 363H. A1c 7.9H. Colon & Rectal Surgery visit scheduled for 06.19.2023 with Matilde Pérez PA-C. Endocrinology appointment 05.26.2024 with Jessa Webster MD at [facility]. Start Pioglitazone 15 mg QD. Stop Basaglar insulin. Increase Ozempic 2 mg once wkly. Continue Humalin R U-500 100 units with meals TID. FOLLOW UP 2 MONTHS. If BG >400 add 50 units to next scheduled dose of Humalin R U 500 insulin 01/08/2025 Pulmonary nodule Completed since last visit.?? Results shared with Leonid today.?? FU Chest CT : Compared to Chest CT. FU pulmonary nodule. No suspicious pulmonary nodule. Right renal cyst is again noted. No further follow up required. (original pulm nodule seen in ER.2023 and recommended year FU).?? No further orders or recommendations.?? Hypertensive heart disease without heart failure Chronic On multiple antihypertensives Hospital follow up visit earlier this month we ordered BMP lab work for review - 12.26.2024: BMP K 4.0, Na 138, Creatinine 1.35H, eGFR 58L, BUN 24.9H. Ca 9.0. BG 363H. Results shared with Leonid sal.?? Vital signs assessed at each PCP visit.?? Onychogryposis Toenails trimmed today - enlongation causes pain with compression socks. Staff cannot complete cares due to diabetes diagnosis requires PCP cares.?? Hypokalemia Chronic Increased risk for further complications due to high insulin needs for diabetic control potassium recheck (4.0).?? potassium 4.0. Result shared with Leonid.?? Continue potassium supplementation TID.?? Type 2 diabetes mellitus with diabetic chronic kidney disease CKD Stage 3a ??12.26.2024: BMP K 4.0, Na 138, Creatinine 1.35H, eGFR 58L (Stage 3a), BUN 24.9H. Ca 9.0. BG 363H Control BP as appropriate for age, risk for falls, and life expectancy. Avoid nephrotoxic medications. Renal dose medications as appropriate. Type 2 diabetes mellitus with diabetic polyneuropathy, with long-term current use of insulin CHRONIC?? Endocrinology?? Jessa Webster MD at [facility].?? Continue close follow up with new bathhouse keeper Continue medication regimen set forth by specialty team. PCP will defer diabetes management for specialist PCP will follow up on BG log at each visit and consult nursing staff to ensure Leonid has the neededsupplies for diabetes management, and continue to encourage healthy dietary intake and increased physical activity as able.?? 09.08.2024: A1c 9.8%. 12.26.2024 A1c 7.9% - results shared with Leonid.?? BG log reviewed. CKD stage 3a, GFR 45-59 ml/min Chronic diabetes type II Sees Endocrinology?12.26.2024: BMP K 4.0, Na 138, Creatinine 1.35H, eGFR 58L (Stage 3a), BUN 24.9H. Ca 9.0. BG 363H Will monitor closely - last eGFR was stage 2 - further progression noted. Discussed with Leonid.?? Nephrology referral will be appropriate if further decline is noted.?? Candidal intertrigo Nystatin powder was PRN although since last visit PCP has scheduled this BID as nursing reported increased redness and moisture in abdominal folds. Further worsening has occurred since Nystatin order and Clotrimazole cream has been ordered.?? Personal hygiene stressed today.?? Monitor closely for skin breakdown - S&S of infection and notify PCP of concerns via [employer] message.01/09/2025
--- OUTSIDE RECORDS SUMMARY | 2025-01-30 21:01 | XMS_ITS | CCD ---
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 subcutaneous RxNorm: 6477949 Inject 42 Unit(s) Subcutaneous TID in addition to sliding scale 04/08/20 022 Inactive d/c 36u albuterol sulfate HFA 90 mcg/actuation aerosol inhaler RxNorm: 7956054 Take 2 Puff(s) Inhalation Q4H every four hours as needed as needed for SOB, cough, or wheezing 04/07/20 030 Active Banophen 50 mg capsule RxNorm: 4117283 Take 1 Capsule(s) Oral Q6H every 6 hours as needed 04/06/20 023 Inactive diphenhydramine 50 mg tablet RxNorm: 5558520 Take 1 Tablet(s) Oral Q6H every 6 hours as needed 04/06/20 022 Inactive diphenhydramine 50 mg tablet RxNorm: 5353211 1 Tablet(s) Oral Q6H every 6 hours as needed 04/06/20 022 Inactive Abilify 15 mg tablet RxNorm: 417660 1/2 Tablet(s) Oral QD 03/10/20 023 Inactive Shingrix (PF) 50 mcg/0.5 mL intramuscular suspension, kit RxNorm: 4598616 Administer 1/2 Milliliter(s) Intramuscular QD one time shingrix step 2 ( step 1 given 11/04/21) WITH needle - Nursing please administer upon arrival and once administered 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, 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, 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, and lot# so we can update [facility] 02/18/20 22 022 Inactive dispense with needle Shingrix (PF) 50 mcg/0.5 mL intramuscular suspension, kit RxNorm: 2049749 Administer 1/2 Milliliter(s) Intramuscular QD one time shingrix step 2 ( step 1 given 11/04/21) WITH needle - Nursing please administer upon arrival and once administered 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, 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, 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, and lot# so we can update [facility]IC 02/18/20 22 022 Inactive dispense with needle Lyrica 100 mg capsule RxNorm: 291600 Take 1 Capsule(s) Oral QAM every morning 01/08/20 22 022 Inactive d/c 50mg dose acetaminophen 500 mg tablet RxNorm: 794811 Take 1 Tablet(s) Oral TID 01/08/20 22 022 Inactive d/c PRN order Lyrica 150 mg capsule RxNorm: 180714 Take 1 Capsule(s) Oral QHS every night at bedtime 01/08/20 22 023 Inactive d/c 100mg dose polyethylene glycol 3350 17 gram/dose oral powder RxNorm: 412886 Take 17=1 capful Gram(s) Oral QD mix with 4-8oz of liquid 01/08/20 22 025 Inactive take this in addition to BID prn order Abilify 5 mg tablet RxNorm: 354022 Take 1 Tablet(s) Oral QD take 1 tab po QD #30 refill 5 dx: MDD 12/12/19 22 022 Inactive Abilify 5 mg tablet RxNorm: 065714 Take 1 Tablet(s) Oral QD take 1 tab po QD #30 refill 5 dx: MDD 12/12/19 22 022 Inactive Novolog Flexpen U-100 Insulin aspart 100 unit/mL (3 mL) subcutaneous RxNorm: 4733222 Inject 42 Unit(s) Subcutaneous TID in addition to sliding scale 12/10/19 22 022 Inactive d/c 36u chlorthalidone 25 mg tablet RxNorm: 205867 Take 1 Tablet(s) Oral QAM every morning 12/10/19 22 023 Inactive pregabalin 50 mg capsule RxNorm: 680041 Take 1 Capsule(s) Oral QAM every morning 11/12/19 22 022 Inactive tetanus-diphtheria toxoids-Td 2 Lf unit-2 Lf unit/0.5 mL IM suspension RxNorm: 139 Take 0.5 Miscellaneous Intramuscular 11/12/19 22 022 Inactive need tdap - nursing to administer upon arrival pregabalin 50 mg capsule RxNorm: 988379 Take 1 Capsule(s) Oral QAM every morning 10/16/19 22 022 Inactive pregabalin 50 mg capsule RxNorm: 526516 Take 1 Capsule(s) Oral QAM every morning 10/16/19 22 Inactive pregabalin 50 mg capsule RxNorm: 540238 1 Capsule(s) Oral QAM every morning 10/15/19 22 Inactive Shingrix (PF) 50 mcg/0.5 mL intramuscular suspension, kit RxNorm: 3169441 Administer 1/2 Milliliter(s) Intramuscular one time Nursing please administer upon arrival and once administered 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, and lot# so [...] aspart 100 unit/mL (3 mL) subcutaneous RxNorm: 9869196 Inject 10 Unit(s) Subcutaneous QHS every night at bedtime with nighttime snack 10/08/19 22 Inactive Shingrix (PF) 50 mcg/0.5 mL intramuscular suspension, kit RxNorm: 0271069 ADMINISTER 2-DOSE SERIES PER CDC GUIDELINES 10/08/19 22 022 Active Shingrix (PF) 50 mcg/0.5 mL intramuscular suspension, kit RxNorm: 4827386 ADMINISTER 2-DOSE SERIES PER CDC GUIDELINES 10/08/19 22 022 Inactive Novolog Flexpen U-100 Insulin aspart 100 unit/mL (3 mL) subcutaneous RxNorm: 4724174 Inject 36 Unit(s) Subcutaneous TID in addition to sliding scale 10/08/19 022 Inactive cholecalciferol (vitamin D3) 1,250 mcg (50,000 unit) capsule RxNorm: 855918 Take 1 Capsule(s) Oral QW once a week 10/08/19 024 Inactive Novofine Autocover 30 gauge x 1/3 needle RxNorm: Use 1 Miscellaneous UD as directed Use 1 needle as directed to administer insulin 5 times a day Dx:E11.42. 10/03/19 22 022 Inactive ok to substitute with any covered alternative pen needle benzoyl peroxide 10 % topical cleanser RxNorm: 135856 Apply 1 Application Topical QD apply to face, wash rinse and dry once daily (may change to QOD if drying) 08/19/19 22 022 Inactive (%covered by insurance) #60ml refill 11 dx: acne benzoyl peroxide 10 % topical cleanser RxNorm: 489986 Apply 1 Application Topical QD apply to face, wash rinse and dry once daily (may change to QOD if drying) 08/19/19 22 022 Inactive (%covered by insurance) #60ml refill 11 dx: acne benzoyl peroxide 10 % topical cleanser RxNorm: 237891 Apply 1 Application Topical QD apply to face, wash rinse and dry once daily (may change to QOD if drying) 08/19/19 22 022 Inactive (%covered by insurance) #60ml refill 11 dx: acne Lyrica 50 mg capsule RxNorm: 625345 Take 1 Capsule(s) Oral QAM every morning Take 1 capsule by mouth once daily 08/19/19 22 022 Inactive benzoyl peroxide 10 % topical cleanser RxNorm: 741542 Apply 1 Application Topical QD apply to face, wash rinse and dry once daily (may change to QOD if drying) 08/19/19 22 022 Inactive (%covered by insurance) #60ml refill 11 dx: acne Lyrica 100 mg capsule RxNorm: 406040 Take 1 Capsule(s) Oral QHS every night at bedtime Take 1 capsule by mouth once daily at bedtime 08/19/19 22 022 Inactive Lyrica 100 mg capsule RxNorm: 711587 Take 1 Capsule(s) Oral QHS every night at bedtime Take 1 capsule by mouth once daily at bedtime 08/16/19 22 022 Inactive Lyrica 50 mg capsule RxNorm: 876838 Take 1 Capsule(s) Oral QAM every morning Take 1 capsule by mouth once daily 08/16/19 22 022 Inactive Levemir FlexTouch U-100 Insulin 100 unit/mL (3 mL) subcutaneous pen RxNorm: 727998 Inject 86 Unit(s) Subcutaneous BID 08/05/19 22 022 Inactive d/c 83units BID Lyrica 100 mg capsule RxNorm: 448830 Take 1 Capsule(s) Oral QHS every night at bedtime Take 1 capsule by mouth once daily at bedtime 07/14/19 22 022 Inactive Lyrica 50 mg capsule RxNorm: 891542 Take 1 Capsule(s) Oral QAM every morning Take 1 capsule by mouth once daily 07/14/19 22 022 Inactive Levemir FlexTouch U-100 Insulin 100 unit/mL (3 mL) subcutaneous pen RxNorm: 296183 Inject 83 Unit(s) Subcutaneous BID 07/08/19 22 [...] test strip hydralazine 50 mg tablet RxNorm: 953029 Take 1 Tablet(s) Oral QID 05/05/20 21 022 Inactive venlafaxine ER 225 mg tablet,extended release 24 hr RxNorm: 788915 Take 1 Tablet(s) Oral QD 05/05/20 21 021 Inactive venlafaxine ER 225 mg tablet,extended release 24 hr RxNorm: 237875 Take 1 Tablet(s) Oral QD 05/05/20 21 022 Inactive isosorbide mononitrate ER 30 mg tablet,extended release 24 hr RxNorm: 597851 Take 1 Tablet(s) Oral QD 05/05/20 21 024 Inactive hydralazine 50 mg tablet RxNorm: 086174 Take 1 Tablet(s) Oral QID 05/05/20 21 021 Inactive aspirin 81 mg tablet,delayed release RxNorm: 720417 Take 1 Tablet(s) Oral QD 03/31/20 21 022 Inactive Vitamin D2 1,250 mcg (50,000 unit) capsule RxNorm: 4145405 Take 1 Capsule(s) Oral QW once a week x 12 weeks 03/31/20 022 Inactive Vitamin D2 1,250 mcg (50,000 unit) capsule RxNorm: 8180748 Take 1 Capsule(s) Oral QW once a week 03/31/20 021 Inactive Zetia 10 mg tablet RxNorm: 274199 Take 1 Tablet(s) Oral QD 03/31/20 024 Inactive Zetia 10 mg tablet RxNorm: 499940 Take 1 Tablet(s) Oral QD 03/31/20 021 Inactive hydralazine 25 mg tablet RxNorm: 098962 Take 1 Tablet(s) Oral QID 03/31/20 021 Inactive hydralazine 25 mg tablet RxNorm: 072202 Take 1 Tablet(s) Oral QID 03/31/20 021 Inactive hydralazine 10 mg tablet RxNorm: 797916 Take 1 Tablet(s) Oral QID 03/03/20 021 Inactive cephalexin 500 mg tablet RxNorm: 245487 Take 1 Tablet(s) Oral QID 02/27/20 021 Inactive cephalexin 500 mg tablet RxNorm: 696161 Take 1 Tablet(s) Oral QID 02/27/20 021 Inactive lisinopril 40 mg tablet RxNorm: 865407 Take 1 Tablet(s) Oral QD 02/11/20 023 Inactive Eliquis 5 mg tablet RxNorm: 5477980 Take 1 Tablet(s) Oral BID 01/05/20 21 025 Inactive Eliquis 5 mg tablet RxNorm: 9870081 Take 2 Tablet(s) Oral QD 01/01/20 21 021 Inactive Lyrica 50 mg capsule RxNorm: 265051 Take 1 Capsule(s) Oral QAM every morning 12/24/19 21 021 Inactive Lyrica 100 mg capsule RxNorm: 396840 Take 1 Capsule(s) Oral QHS every night at bedtime 12/24/19 21 021 Inactive clotrimazole 1 % topical cream RxNorm: 851310 Apply to right foot and toes Topical BID 12/04/19 21 023 Inactive metoprolol succinate ER 200 mg tablet,extended release 24 hr RxNorm: 004932 Take 1 Tablet(s) Oral QD 07/20/ 023 Inactive ciprofloxacin 500 mg tablet RxNorm: 124688 Take 1 Tablet(s) Oral QD 11/30/19 21 021 Inactive DX ofloxacin otic drops Accu-Chek Guide test strips RxNorm: USE 1 TO CHECK GLUCOSE 4 TIMES DAILY AND NEEDED 11/15/19 21 023 Inactive Blood Glucose Test strips RxNorm: Use 1 Test Strip QID at PRN 11/05/19 21 023 Inactive E11.42 lisinopril 30 mg tablet RxNorm: 268195 Take 1 Tablet(s) Oral QD 10/30/19 021 Inactive lisinopril 20 mg tablet RxNorm: 304532 Take 1 Tablet(s) Oral QD 10/23/19 21 021 Inactive lisinopril 20 mg tablet RxNorm: 231585 Take 1 Tablet(s) Oral QD 10/23/19 21 021 Inactive lisinopril 10 mg tablet RxNorm: 323392 Take 1 Tablet(s) Oral QD 10/02/19 21 021 Inactive icosapent ethyl 1 gram capsule RxNorm: 9662266 Take 2 Capsule(s) (2 gm) Oral BID with meals 09/12/19 024 Inactive Okay to dispense one 2gm tab if you have that available. icosapent ethyl 1 gram capsule RxNorm: 9902533 Take 2 Capsule(s) Oral BID 09/12/19 21 021 Inactive Okay to dispense one 2gm tab if you have that available. amlodipine 10 mg tablet RxNorm: 574318 Take 1 Tablet(s) Oral QD 09/04/19 21 021 Inactive aspirin 81 mg tablet,delayed release RxNorm: 186290 Take 1 Tablet(s) Oral QD 09/04/19 21 021 Inactive Levemir FlexTouch U-100 Insulin 100 unit/mL (3 mL) subcutaneous pen RxNorm: 929122 Inject 150 Unit(s) Subcutaneous BID 09/04/19 21 022 Inactive venlafaxine ER 150 mg tablet,extended release 24 hr RxNorm: 093640 Take 1 Tablet(s) Oral QD 09/04/19 021 Inactive clotrimazole-betame thasone 1 %-0.05 % topical cream RxNorm: 884875 Apply to rash on red area on left abdomen/chest Topical BID 08/10/19 21 021 Inactive amlodipine 5 mg tablet RxNorm: 649323 Take 1 Tablet(s) Oral QD 07/31/19 21 Inactive cephalexin 500 mg tablet RxNorm: 754690 Take 1 Tablet(s) Oral BID BID - Twice Daily 07/31/19 21 021 Inactive Start 08/01/20 pantoprazole 40 mg tablet,delayed release RxNorm: 831438 Take 1 Tablet(s) Oral QAM every morning 07/08/19 025 Inactive clopidogrel 75 mg tablet RxNorm: 201693 Take 1 Tablet(s) Oral QD 07/08/19 021 Inactive Blood Glucose Test strips RxNorm: Use 1 Test Strip QID at PRN 07/08/19 Inactive E11.42 senna 8.6 mg tablet RxNorm: 955474 Take 1 Tablet(s) Oral QD 07/08/19 025 Inactive Novolog Flexpen U-100 Insulin aspart 100 unit/mL (3 mL) subcutaneous RxNorm: 0462971 Administer per sliding scale Milliliter(s) Subcutaneous TID 151-200: 10 u; 201-250: 20 u; 251-300: 30 u; 301-350: 40 u; 351-400: 50 u. 07/08/19 022 Inactive lisinopril 5 mg tablet RxNorm: 412115 Take 1 Tablet(s) Oral QD 07/08/19 021 Inactive Novolog Flexpen U-100 Insulin aspart 100 unit/mL (3 mL) subcutaneous RxNorm: 4253951 Inject 85 Unit(s) Subcutaneous TID 07/08/19 21 022 Inactive pravastatin 80 mg tablet RxNorm: 161880 Take 1 Tablet(s) Oral QHS every night at bedtime 07/08/19 023 Inactive clotrimazole 1 % topical cream RxNorm: 585422 Apply to bilateral groin areas Topical BID 07/08/19 21 022 Inactive metoprolol succinate ER 200 mg tablet,extended release 24 hr RxNorm: 663713 Take 1 Tablet(s) Oral QD 07/08/19 21 021 Inactive Vitamin D3 25 mcg (1,000 unit) tablet RxNorm: 171224 Take 1 Tablet(s) Oral QD 07/08/19 021 Inactive isosorbide dinitrate 30 mg tablet RxNorm: 661113 Take 1 Tablet(s) Oral QD 07/08/19 021 Inactive carbamazepine 200 mg tablet RxNorm: 490246 Take 1 Tablet(s) Oral BID 07/08/19 025 Inactive Levemir FlexTouch U-100 Insulin 100 unit/mL (3 mL) subcutaneous pen RxNorm: 431439 Inject 140 Unit(s) Subcutaneous BID 07/08/19 021 Inactive torsemide 20 mg tablet RxNorm: 221767 Take 1 Tablet(s) Oral QD 07/08/19 023 Inactive venlafaxine 75 mg tablet RxNorm: 728404 Take 1 Tablet(s) Oral QD 07/08/19 021 Inactive acetaminophen 500 mg tablet RxNorm: 907219 Take 1 Tablet(s) Oral TID as needed for headache 06/18/19 021 Inactive acetaminophen 500 mg tablet RxNorm: 279215 Take 1 Tablet(s) Oral TID as needed for headache 06/18/19 021 Inactive Lyrica 100 mg capsule RxNorm: 367475 Take 1 Capsule(s) Oral QHS every night at bedtime 06/11/19 021 Inactive Lyrica 50 mg capsule RxNorm: 227011 Take 1 Capsule(s) Oral QAM every morning 06/10/19 21 021 Inactive hydrocortisone 2.5 % topical cream RxNorm: 807924 Apply to bilateral groin creases Topical BID 05/15/20 20 021 Inactive clotrimazole 1 % topical cream RxNorm: 490154 Apply to bilateral groin areas Topical BID 05/15/20 20 01/12/2 021 Inactive Lyrica 50 mg capsule RxNorm: 245294 Take 1 Capsule(s) Oral QAM every morning 05/14/20 20 Inactive Lyrica 100 mg capsule RxNorm: 018673 Take 1 Capsule(s) Oral QHS every night [...] Inactive Nystop 100,000 unit/gram topical powder RxNorm: 298457 Apply to abd folds, under breasts and L side of groin Topical BID x 14 days, then BID PRN 04/08/20 20 Inactive dx: yeast dermatitis Lyrica 100 mg capsule RxNorm: 412187 Take 1 Capsule(s) Oral QHS every night at bedtime 03/13/20 20 Inactive Lyrica 50 mg capsule RxNorm: 391946 Take 1 Capsule(s) Oral QAM every morning 03/13/20 20 Inactive ketoconazole 2 % shampoo RxNorm: 497185 Apply Topical two times a week with showers 03/11/20 20 024 Inactive cholecalciferol (vitamin D3) 50 mcg (2,000 unit) tablet RxNorm: 172680 Take 1 Tablet(s) Oral QD 03/11/20 20 021 Inactive Zetia 10 mg tablet RxNorm: 441528 Take 1 Tablet(s) Oral QD 03/07/20 021 Inactive Zetia 10 mg tablet RxNorm: 710136 Take 1 Tablet(s) Oral QD 03/07/20 Inactive Lyrica 50 mg capsule RxNorm: 581642 Take 1 Capsule(s) Oral QAM every morning 02/15/20 20 020 Inactive Lyrica 100 mg capsule RxNorm: 850088 Take 1 Capsule(s) Oral QHS every night at bedtime 02/15/20 020 Inactive Lyrica 100 mg capsule RxNorm: 290345 Take 1 Capsule(s) Oral QHS every night at bedtime 02/15/20 Inactive Lyrica 50 mg capsule RxNorm: 400737 Take 1 Capsule(s) Oral QAM every morning 02/15/20 Inactive venlafaxine ER 75 mg capsule,extended release 24 hr RxNorm: 158502 Take 3 Capsule(s) Oral QD 06/12/19 023 Inactive polyethylene glycol 3350 17 gram/dose oral powder RxNorm: 368921 Take 17=1 capful Gram(s) Oral BID as needed mix with 4-8oz of liquid 06/12/19 22 024 Inactive icosapent ethyl 1 gram capsule RxNorm: 9146251 Take 2 Capsule(s) (2 gm) Oral BID with meals 10/07/19 023 Inactive Okay to dispense one 2gm tab if you have that available. Levemir FlexTouch U-100 Insulin 100 unit/mL (3 mL) subcutaneous pen RxNorm: 821744 Inject 80 Unit(s) Subcutaneous BID 07/14/19 23 023 Inactive metoprolol succinate ER 200 mg tablet,extended release 24 hr RxNorm: 962205 Take 1 Tablet(s) Oral QD 08/12/19 025 Inactive loperamide 2 mg capsule RxNorm: 891504 Take 1 Capsule(s) Oral QID as needed 09/06/19 025 Inactive hydralazine 50 mg tablet RxNorm: 944417 Take 1 Tablet(s) Oral QID 08/12/19 23 025 Inactive Soft Touch Lancets RxNorm: miscellaneous 03/04/20 24 025 Inactive Novolog Flexpen U-100 Insulin aspart 100 unit/mL (3 mL) subcutaneous RxNorm: 3905183 Insert 30 Unit(s) Subcutaneous TID with meals [...] Status Date Patient Education: Patient Medication Summary Yussqoilb84/07/2025Referral: [facility] Radiology/Imaging WPtel: [address] [facility] USReferralNo Records Cymnmuxf87/06/2025ppointment: [facility] WPtel: [address] [facility] 300 [id number] USF/U008/08/2024ppointment: [facility] WPtel: [address] [place] [address] 300 [id number] USF/U007/11/2024Referral: [facility] [place]/Endocrinology WPtel: [address] [facility] 3 [id number] USReferralNo Records Jgngiujb04/24/2025ppointment: [facility] WPtel: [address] [place] [address] 300 [id number] [facility]/08/2024ppointment: [facility] WPtel: [address] [place] [address] 300 [id number] US/U001/11/2024ppointment: Sandra Clark WPtel: [address] [place], [place] [id number] [facility] Psych Follow Up12/09/2022ppointment: Tapan Shirley WPtel: [address] [place] [address] 300 [id number] [facility]10/26/2022Referral: [facility] WPtel: [address], [address] [id number] USReferralRecords Rilstvib74/08/2023ppointment: Tapan Shirley WPtel: [address] [place] [address] 300 [id number] US/08/11/2022ppointment: Tapan Shirley WPtel: [address] [facility] 300 [id number] USF/07/14/2022ppointment: Tapan Shirley WPtel: [address] [facility] 300 [id number] USF/2Referral: [facility] WPtel: [address] [facility] [address] [id number] ZVHjwufbwsAmvxnnizj57/12/2022Referral: General CardiologyReferralCompleted 1Referral: General PsychologistReferralClosedReferral: General PsychiatristReferralPatient/Family Scheduling AppointmentReferral: [facility] W[facility]el: [facility]6 [address] [id number] USReferralFacility Scheduling AppointmentReferral: General Physical Medicine [...] Sister Jyotsna involved in his care cell# [phone] Guardian: Giulia (tapan met in person 09/01/21), [...] - next visit will order K recheck 10.23.2024: Potassium recheck 4.0. 8: BMP K 4.0, Na 138, Creatinine 1.35H, eGFR 58L, BUN 24.9H. Ca 9.0. BG 363H. A1c 7.9H. Colon & Rectal Surgery visit scheduled for 06.19.2023 with Matilde Pérez PA-C. Endocrinology appointment 05.26.2024 with Jessa Webster MD at [facility]. Start Pioglitazone 15 mg QD. Stop Basaglar insulin. Increase Ozempic 2 mg once wkly. Continue Humalin R U-500 100 units with meals TID. FOLLOW UP 2 MONTHS. If BG >400 add 50 units to next scheduled dose of Humalin R U 500 insulin 01/08/2025
--- OUTSIDE RECORDS SUMMARY | 2025-01-30 21:03 | XMS_ITS | CCD ---
Author Organization Unknown Care Team Providers Care Purse Maker Name Role Phone Harrison Durham Primary Care Provider Leona vailable Unavailable Chronic Care Management Unavaila ble Summary Purpose DataExchange Insurance Providers Payer name Policy type / Coverage type Covered republican ID Effective Begin Date Effective End Date [place] [id number] Unknown Unknown [place] B [id number] Unknown Unknown Family history Sister Brittany Suggs [...] on file 07/11/[address]: 499605921 Never smoker 01/16 Sexually Active? Unknown No [...] Unknown Custodial 09/03/[address]: 479323845 No Alcohol Consum ption 09/02/2020 Allergies, Adverse Reactions, Alerts Substance Reaction Codes Entered Date Inactivated Date Status * NO KNOWN FOOD ALLERGIES Agudddi0907/13/2023No Inactive DateActiveLISINOPRILRxNorm: 978126402/12/2020No Inactive DateActiveMetformin UNlElmhtcy86/28/2020No Inactive DateActive* NO KNOWN ENVIRONMENTAL KCNEOUBMJTbjoiyq90/27/2024No Inactive DateActive Problems Condition Codes Effective Dates Condition St atus Body mass index [BMI] 60.0-69.9, adult I CD-10: Z68.44 ICD-9: V85.4408/5ActiveHistory of recent hospitalizationSNOMED CT: 227963178 ICD-10: Z92.89 ICD-9: V13.9085ActiveHypertensive heart disease without heart failureICD- 10: I11.9 ICD-9: 402.9008/5ActiveHypokalemiaICD-10: E87.6 ICD-9: 276.808/5ActiveMixed incontinenceSNOMED CT: 81812934 ICD-10: N39.46 ICD-9: 788.3308/5ActiveOSA (obstructive sleep apnea)SNOMED CT: 12772271 ICD-10: G47.33 ICD-9: 327.2308/5ActiveType 2 diabetes mellitus with diabetic polyneuropathy, with long-term current use of insulinICD-10: E11.42 ICD-9: 250.6008/5ActiveCandidal intertrigoICD-10: B37.2 ICD-9: 112.307/5ActivePulmonary noduleICD-10: R91.1 ICD-9: 793.1107/5ActiveConstipation by delayed colonic transitICD-10: K59.01 ICD-9: 564.0106/5ActiveLoose [...] mellitus with diabetic chronic kidney diseaseSNOMED CT: 072947764133 ICD-10: E11.22 ICD-9: 250.4005/5ActivePressure ulcer of left calf, unstageableICD-10: L89.890 ICD-9: 707.0905ResolvedDiabetic neuropathy associated with type 2 diabetes mellitusICD-10: E11.40 ICD-9: 250.60025ActiveHemorrhoidsICD-10: K64.9 ICD-9: 455.602tivePVD (peripheral vascular disease)ICD-10: I73.9 ICD-9: 443.9025ActiveHyperlipidemia associated with type 2 diabetes mellitusICD-10: E11.69 ICD-9: 250.80015ActiveAdvance care planningICD-10: Z71.89 ICD-9: V65.4912/4ActiveLow back painICD-10: M54.50 ICD-9: 724.210/4ActivePhysical deconditioningICD-10: R53.81 ICD-9: 799.310/ctiveAdvanced care planning - to document end of life bkzvtwwxdxhUgbmmmr02/24/2024ctiveAnnual physical examICD-10: Z00.00 ICD-9: V70.009ctiveHistory of anemia due to CKDICD-10: N18.9 ICD-9: 585.909/ctiveHx of deep venous thrombosisICD-10: Z86.718 ICD-9: V12.5109/ctiveLearning disabilityICD-10: F81.9 ICD-9: 315.209/ctiveReducible umbilical herniaICD-10: K42.9 ICD-9: 553.109/ctiveVitamin D deficiencyICD-10: E55.9 ICD-9: 268.909/ctiveCallus of heelICD-10: L84 ICD-9: 39344/esolvedGout due to renal impairmentICD-10: M10.30 ICD-9: 274.1005/esolvedHyperhidrosis of palmsICD-10: L74.512 ICD-9: 705.21010/12/2023esolvedHyperlipidemia, unspecifiedICD-10: E78.5 ICD-9: 272.405/esolvedOther regional intermodal truck driver (current) drug therapyICD-10: [...] tagICD-10: L91.8 ICD-9: 701.904/esolvedCoronary artery disease involving [place] coronary artery of [place] heart, angina presence unspecifiedICD-10: I25.10 ICD-9: 414.0102/4ActiveInappropriate sexual behaviorICD-10: Z72.89 ICD-9: 312.8910/ctivePre-op evaluationICD-10: Z01.818 ICD-9: V72.8403/ctiveSecondary hypertensionICD-10: I15.9 ICD-9: 405.9903/ctiveDepressionICD-10: F32.9 ICD-9: 00873/2ResolvedDVT (deep venous thrombosis)ICD-10: I82.409 ICD-9: 453.4009/2ResolvedEncounter for [...] to other viral communicable diseasesICD-10: Z20.828 ICD-9: V01.79022689HjxvlpsuIeayxpxzOgxatui86/28/2020ActiveDiabetes mellitus Type 5Vsofoju39/28/2020ActiveAnemia in chronic kidney diseaseICD-10: D63.1 02/12/2020ResolvedHyperlipidemia, unspecifiedICD-10: E78.Resolved Medications Medication Codes Instructions Start Date Stop Date Status Fill Instructions clotrimazole 1 % topical cream RxNorm: 094848 apply one application to affected and surrounding area(s) of skin BID until clinical resolution (abdominal and thigh folds), typically 1-4 weeks.Pause nystatin powder use while using clotrimazole cream. 01/03/20 25 025 Active clotrimazole 1 % topical cream RxNorm: 430500 apply one application to affected and surrounding area(s) of skin BID until clinical resolution (abdominal and thigh folds), typically 1-4 weeks. Pause nystatin powder use while using clotrimazole cream. 01/03/20 25 025 Inactive Culturelle 10 billion cell capsule RxNorm: 916166 Take 1 Capsule(s) Oral QD 11/08/19 25 026 Active Culturelle 10 billion cell capsule RxNorm: 220146 Take 1 Capsule(s) Oral QD 11/08/19 25 025 Inactive hydrocodone 5 mg-acetaminophen 325 mg tablet RxNorm: 510189 Take 1 Tablet(s) Oral Q4H every four hours as needed for pain PRN for severe acute dental pain 10/21/19 25 025 Inactive penicillin V potassium 500 mg tablet RxNorm: 232337 Take 1 Tablet(s) Oral QID Take until dental appointment per ER recommendation 10/21/19 25 025 Inactive hydrocodone 5 mg-acetaminophen 325 mg tablet RxNorm: 528715 Take 1 Tablet(s) Oral Q4H every four hours as needed for pain PRN for severe acute dental pain 10/21/19 25 025 Inactive penicillin V potassium 500 mg tablet RxNorm: 845717 Take 1 Tablet(s) Oral QID Take until dental appointment per ER recommendation 10/21/19 25 Inactive potassium chloride ER 20 mEq tablet,extended release RxNorm: 527738 Take 2 Tablet(s) Oral TID (dx: hypokalemia) 09/14/19 25 Active potassium chloride ER 20 mEq tablet,extended release RxNorm: 831428 Take 2 Tablet(s) Oral TID (dx: hypokalemia) 09/14/19 25 Inactive loperamide 2 mg tablet RxNorm: 998143 Take 2 Tablet(s) Oral UD as directed [...] Date Active senna 8.6 mg tablet RxNorm: 403234 Take 1 Tablet(s) Oral QD as needed and 1 tab BID prn 09/06/19 No Stop Date Active cyclobenzaprine 10 mg tablet RxNorm: 787068 Take 1 Tablet(s) Oral QHS every night at bedtime as needed 09/06/19 No Stop Date Active loperamide 2 mg tablet RxNorm: 293542 Take 2 Tablet(s) Oral UD as directed as needed 2 tabs after first loose stool then 1 tab after each subsequent stool PRN Do not exceed 4 doses in 24 hours. Do not administer until after 3 loose stools. 09/06/19 25 026 Active pioglitazone 15 mg tablet RxNorm: 593217 Take 1 Tablet(s) Oral QD 09/06/19 No Stop Date Active loperamide 2 mg tablet RxNorm: 921612 Take 2 Tablet(s) Oral UD as directed as needed 2 tabs after first loose stool then 1 tab after each subsequent stool PRN Do not exceed 4 doses in 24 hours. Do not administer until after 3 loose stools. 09/06/19 25 025 Inactive pregabalin 100 mg capsule RxNorm: 823575 1 CAPSULE BY MOUTH EVERY MORNING (DX: NEUROPATHY) 08/23/19 25 Active FACILITY IS REQUESTING REFILL. PRIOR RX HAS BEEN EXHAUSTED. THANK YOU. pregabalin 150 mg capsule RxNorm: 945957 1 CAPSULE BY MOUTH AT BEDTIME (DX: NEUROPATHY) 08/21/19 Inactive FACILITY IS REQUESTING A REFILL OF THIS MEDICATION, THANK YOU! senna 8.6 mg tablet RxNorm: 214837 Take 1 Tablet(s) Oral QD as needed for constipation on day 2 of no bowel movement 08/09/19 Inactive Miralax 17 gram/dose oral powder RxNorm: 423603 Administer 17 Gram(s) Oral QD as needed for constipation on day 3 of no bowel movement 08/09/19 Inactive senna 8.6 mg tablet RxNorm: 543824 Take 1 Tablet(s) Oral QD as needed for constipation on day 2 of no bowel movement 08/09/19 Inactive Miralax 17 gram/dose oral powder RxNorm: 544310 Administer 17 Gram(s) Oral QD as needed for constipation on day 3 of no bowel movement 08/09/19 Inactive pregabalin 100 mg capsule RxNorm: 378776 Take 1 Capsule(s) Oral QAM every morning [...] (Concentrated) Insulin 500 unit/mL subcutaneous soln RxNorm: 053690 Inject 100 Unit(s) Subcutaneous AC before meals Three times daily before meals. 07/24/19 25 025 Inactive ammonium lactate 12 % topical cream RxNorm: 796672 Apply 1 Application Topical BID 07/20/19 No Stop Date Active ezetimibe 10 mg tablet RxNorm: 405389 Take 1 Tablet(s) Oral QD 07/18/19 No Stop Date Active senna 8.6 mg tablet RxNorm: 477644 Take 1 Tablet(s) Oral QD 07/18/19 25 025 Inactive metoprolol succinate ER 200 mg tablet,extended release 24 hr RxNorm: 991217 Take 1 Tablet(s) Oral QD 06/19/19 25 No Stop Date Active pantoprazole 40 mg tablet,delayed release RxNorm: 830341 Take 1 Tablet(s) Oral QAM every morning 06/19/19 25 No Stop Date Active hydralazine 50 mg tablet RxNorm: 033970 Take 1 Tablet(s) Oral QID 06/19/19 25 No Stop Date Active carbamazepine 200 mg tablet RxNorm: 325105 Take 1 Tablet(s) Oral BID 06/19/19 25 No Stop Date Active amlodipine 10 mg tablet RxNorm: 538553 Take 1 Tablet(s) Oral QD 06/19/19 25 No Stop Date Active Eliquis 5 mg tablet RxNorm: 6529675 Take 1 Tablet(s) Oral BID 06/19/19 25 No Stop Date Active pen needle, diabetic 30 gauge x 3/16 RxNorm: Use 1 6 times per day w/insulin 06/14/19 25 026 Active pen needle, diabetic 30 gauge x 3/16 RxNorm: Use 1 needle 6 times per day w/insulin 06/14/19 25 025 Inactive nystatin 100,000 unit/gram topical powder RxNorm: 146091 Apply 1 Application Topical BID as needed abdominal/breast/ groin folds 05/24/19 25 026 Active pregabalin 100 mg capsule RxNorm: 298615 Take 1 Capsule(s) Oral QAM every morning 05/22/19 25 025 Inactive nystatin 100,000 unit/gram topical powder RxNorm: 433567 Apply 1 Application Topical BID as needed abdominal/breast/ groin folds 04/11/20 24 024 Inactive chlorthalidone 25 mg tablet RxNorm: 902849 Take 1 Tablet(s) Oral QAM every morning 04/06/20 24 No Stop Date Active pregabalin 150 mg capsule RxNorm: 956774 Take 1 Capsule(s) Oral QHS every night at bedtime 03/31/20 24 024 Inactive Vascepa 1 gram capsule RxNorm: 7929749 Take 2 Capsule(s) Oral BID 03/30/20 Active rosuvastatin 40 mg tablet RxNorm: 565329 1 TAB ORALLY EVERY EVENING (DX:CORONARY ARTERY DISEASE) 03/28/20 No Stop Date Active venlafaxine ER 75 mg capsule,extended release 24 hr RxNorm: 054545 3 CAPS (225MG) ORALLY DAILY (DX: MOOD DISORDER) 03/28/20 No Stop Date Active pregabalin 100 mg capsule RxNorm: 014899 Take 1 Capsule(s) Oral QAM every morning 03/20/20 Inactive cholecalciferol (vitamin D3) 1,250 mcg (50,000 unit) capsule RxNorm: 960742 Take 1 Capsule(s) Oral QW once a [...] Insulin 100 unit/mL (3 mL) subcutaneous RxNorm: 9048996 Inject 40 Unit(s) Subcutaneous BID 03/07/20 24 025 Inactive Please dispense one month supply. Humulin R U-500 (Concentrated) Insulin 500 unit/mL subcutaneous soln RxNorm: 306679 Inject 100 Unit(s) Subcutaneous AC before meals [...] PRN) to be use with new Accu [place] meter 03/04/20 Inactive ok to substitute with any covered alternative test strip FreeStyle Chema 2 Sensor kit RxNorm: Use UD as directed 03/02/20 Inactive Pen Needle 30 gauge x 09/29 RxNorm: Pen(s) Use 1 needle as directed TID 03/02/20 Inactive nystatin 100,000 unit/gram topical powder RxNorm: 150023 Apply 1 Application Topical BID as needed [...] (Concentrated) Insulin 500 unit/mL subcutaneous soln RxNorm: 009451 Inject 100 Unit(s) Subcutaneous TID 02/17/20 24 024 Inactive Humulin R U-500 (Concentrated) Insulin 500 unit/mL subcutaneous soln RxNorm: 550425 Inject 100 Unit(s) Subcutaneous TID 02/10/20 24 024 Inactive Basaglar KwikPen U-100 Insulin 100 unit/mL (3 mL) subcutaneous RxNorm: 9790493 Inject 30 Unit(s) Subcutaneous BID 02/10/20 24 024 Inactive Please dispense one month supply. pregabalin 100 mg capsule RxNorm: 786726 Take 1 Capsule(s) Oral QAM every morning 02/07/20 24 024 Inactive isosorbide mononitrate ER 60 mg tablet,extended release 24 hr RxNorm: 813585 Take 1 Tablet(s) Oral QD 02/01/20 24 025 Inactive aripiprazole 15 mg tablet RxNorm: 330416 Take 1/2 Tablet(s) Oral QD 02/01/20 24 Inactive torsemide 20 mg tablet RxNorm: 242289 1 TAB ORALLY DAILY (DX: EDEMA) 01/27/20 No Stop Date Active potassium chloride ER 20 mEq tablet,extended release(part/cryst) RxNorm: 4558915 2 TABS (40MEQ) ORALLY TWICE DAILY (DX: HYPOKALEMIA) 01/27/20 24 025 Inactive cephalexin 500 mg capsule RxNorm: 198422 Take 1 Capsule(s) Oral QID 12/17/19 24 024 Inactive cephalexin 500 mg capsule RxNorm: 638786 Take 1 Capsule(s) Oral QID 12/17/19 24 024 Inactive acetaminophen 500 mg tablet RxNorm: 696390 (MAX APAP:4GM/24HR) Take 1 Tablet(s) Oral TID as needed for pain 12/10/19 24 024 Inactive torsemide 20 mg tablet RxNorm: 082616 Take 1 Tablet(s) Oral QD 10/26/19 24 024 Inactive potassium chloride ER 20 mEq tablet,extended release RxNorm: 19800522 Take 2 Tablet(s) Oral BID 10/26/19 24 024 Inactive torsemide 20 mg tablet RxNorm: 190559 Take 1 Tablet(s) Oral QD 10/26/19 24 Inactive potassium chloride ER 20 mEq tablet,extended release RxNorm: 19800522 Take 2 Tablet(s) Oral BID 10/26/19 24 025 Inactive Artificial Tears (PF) 0.1 %-0.3 % drops in a dropperette RxNorm: 202600 Apply 1-2 Drop(s) Both eyes BID as needed 09/28/19 24 025 Inactive erythromycin 5 mg/gram (0.5 %) eye ointment RxNorm: 816351 Apply 1 Application Both eyes QHS every night at bedtime Instill ~1 cm ribbon into affected eye 09/28/19 24 024 Inactive Artificial Tears (PF) 0.1 %-0.3 % drops in a dropperette RxNorm: 866988 Apply 1-2 Drop(s) Both eyes BID as needed 09/28/19 24 024 Inactive erythromycin 5 mg/gram (0.5 %) eye ointment RxNorm: 311558 Apply 1 Application Both eyes QHS every night at bedtime Instill ~1 cm ribbon into affected eye 09/28/19 24 024 Inactive acetaminophen 500 mg tablet RxNorm: 333533 (MAX APAP:4GM/24HR) Take 1 Tablet(s) Oral TID as needed for pain 09/24/19 24 024 Inactive carvedilol 25 mg tablet RxNorm: 083441 Take 1 Tablet(s) Oral QD 09/08/19 24 No Stop Date Active pregabalin 100 mg capsule RxNorm: 481743 Take 1 Capsule(s) Oral QAM every morning 09/07/19 24 024 Inactive bisacodyl 10 mg rectal suppository RxNorm: 280185 Insert 1 Suppository Rectal QD as needed 07/13/19 24 No Stop Date Active ketoconazole 2 % shampoo RxNorm: 565393 Apply 1 Application Topical UD as directed 07/13/19 24 No Stop Date Active Ozempic 1 mg/dose (4 mg/3 mL) subcutaneous pen injector RxNorm: 4605777 Inject 1 Milligram(s) Subcutaneous QW once a week 07/13/19 24 No Stop Date Active Guaifenesin AC 10 mg-100 mg/5 mL oral liquid RxNorm: 858320 Take 10 Milliliter(s) Oral Q4H every four hours as needed 07/13/19 24 No Stop Date Active hydrocortisone 2.5 % topical cream RxNorm: 613992 Apply 1 Application Topical BID as needed 07/13/19 No Stop Date Active rosuvastatin 40 mg tablet RxNorm: 031208 Take 1 Tablet(s) Oral QPM every evening 07/13/19 024 Inactive ezetimibe 10 mg tablet RxNorm: 411664 Take 1 Tablet(s) Oral QD 07/13/19 24 025 Inactive polyethylene glycol 3350 17 gram/dose oral powder RxNorm: 708411 Take 17 Gram(s) Oral BID as needed mix in 4-8ox water 07/13/19 24 025 Inactive aripiprazole 15 mg tablet RxNorm: 313423 Take 1/2 Tablet(s) Oral QD 07/13/19 24 024 Inactive isosorbide mononitrate ER 60 mg tablet,extended release 24 hr RxNorm: 482084 Take 1 Tablet(s) Oral QD 07/13/19 24 024 Inactive ammonium lactate 12 % topical cream RxNorm: 814360 Apply 1 Application Topical BID 07/13/19 24 025 Inactive rosuvastatin 20 mg sprinkle capsule RxNorm: 8401336 Take 1 Capsule(s) Oral QD 07/13/19 24 025 Inactive Vascepa 1 gram capsule RxNorm: 4143928 Take 2 Capsule(s) Oral BID 07/13/19 24 024 Inactive venlafaxine ER 75 mg capsule,extended release 24 hr RxNorm: 029689 Take 3 Capsule(s) Oral QD 07/13/19 24 024 Inactive Basaglar KwikPen U-100 Insulin 100 unit/mL (3 mL) subcutaneous RxNorm: 1980740 Inject 30U SubQ twice daily 07/07/19 24 024 Inactive Please dispense one month supply. Basaglar KwikPen U-100 Insulin 100 unit/mL (3 mL) subcutaneous RxNorm: 2986576 Inject 30U SubQ twice daily 07/07/19 24 024 Inactive Please dispense one month supply. pregabalin 150 mg capsule RxNorm: 495567 Take 1 Capsule(s) Oral QHS every night at bedtime 07/05/19 24 024 Inactive pregabalin 150 mg capsule RxNorm: 608757 Take 1 Capsule(s) Oral QHS every night at bedtime 07/05/19 024 Inactive polyethylene glycol 3350 17 gram/dose oral powder RxNorm: 557065 Take 1 Packet Oral QD as needed (1 packet = 17g) mix with 4-8oz of liquid 06/15/19 024 Inactive bisacodyl 10 mg rectal suppository RxNorm: 195902 Insert one suppository per rectum once daily as needed for constipation 06/15/19 024 Inactive bisacodyl 10 mg rectal suppository RxNorm: 233695 Insert one suppository per rectum once daily as needed for constipation 06/15/19 024 Inactive pregabalin 100 mg capsule RxNorm: 979595 Take 1 Capsule(s) Oral QAM every morning 04/27/20 024 Inactive Levemir FlexPen 100 unit/mL (3 mL) solution subcutaneous insulin pen RxNorm: 734208 Inject 30 Unit(s) Subcutaneous BID 04/27/20 024 Inactive rosuvastatin 40 mg tablet RxNorm: 048792 Take 1 Tablet(s) Oral QPM every evening 04/16/20 024 Inactive D/C rosuvastatin 20mg venlafaxine ER 75 mg capsule,extended release 24 hr RxNorm: 073800 Take 3 Capsule(s) Oral QD 04/14/20 23 023 Inactive pregabalin 100 mg capsule RxNorm: 920781 Take 1 Capsule(s) Oral QAM every morning [...] strip clotrimazole 1 % topical cream RxNorm: 629019 Take apply topically to abdominal folds twice daily for 14 days 03/12/20 024 Inactive Ozempic 1 mg/dose (4 mg/3 mL) subcutaneous pen injector RxNorm: 5763217 Inject 1 Milligram(s) Subcutaneous QW once a week 03/11/20 023 Inactive rosuvastatin 20 mg tablet RxNorm: 146171 Take 1 Tablet(s) Oral QD 02/26/20 023 Inactive d/c pravastatin 80mg Ozempic 1 mg/dose (4 mg/3 mL) subcutaneous pen injector RxNorm: 1050028 Inject 1 Milligram(s) Subcutaneous QW once a week 02/20/20 023 Inactive pregabalin 150 mg capsule RxNorm: 001347 Take 1 Capsule(s) Oral HS at bed time 02/19/20 23 023 Inactive pregabalin 100 mg capsule RxNorm: 568023 Take 1 Capsule(s) Oral QAM every morning 02/18/20 023 Inactive venlafaxine ER 75 mg capsule,extended release 24 hr RxNorm: 342984 Take 3 Capsule(s) Oral QD 02/04/20 023 Inactive FreeStyle Chema 2 Sensor kit RxNorm: use as directed 02/04/20 023 Inactive FreeStyle Chema 2 Sensor kit RxNorm: use as directed 02/04/20 23 024 Inactive fluconazole 150 mg tablet RxNorm: 781362 Take 1 Tablet(s) Oral on day 3 and on day 6 02/03/20 024 Inactive venlafaxine ER 150 mg capsule,extended release 24 hr RxNorm: 261791 Take 1 Capsule(s) Oral QD 02/03/20 023 Inactive chlorthalidone 25 mg tablet RxNorm: 255476 Take 1 Tablet(s) Oral QAM every morning 02/03/20 024 Inactive acetaminophen 500 mg tablet RxNorm: 653790 1 TABLET ORALLY 3 TIMES DAILY (MAX APAP:4GM/24HR) 12/15/19 23 023 Inactive potassium chloride ER 20 mEq tablet,extended release RxNorm: 464536 Take 1 Tablet(s) Oral BID 12/09/19 024 Inactive d/c 20mEq once daily (sent from hospital) clotrimazole 1 % topical cream RxNorm: 959530 apply 1g topically to top of feet and in between toes BID 12/09/19 23 025 Inactive nystatin 100,000 unit/gram topical powder RxNorm: 231740 APPLY TO AFFECTED AREAS TOPICALLY 2 TIMES DAILY 11/21/19 23 023 Inactive Nystop 100,000 unit/gram topical powder RxNorm: 367490 Apply to abd folds, under breasts and L side of groin Topical BID x 14 days, then BID PRN 11/20/19 023 Inactive dx: yeast dermatitis [place] Ultra Strength 4 %-30 %-10 % topical cream RxNorm: 573309 Apply 1 Gram(s) Topical QID PRN to feet and legs for neuropathic pain 11/11/19 23 024 Inactive hydrocortisone 2.5 % topical cream RxNorm: 745314 Apply 1/2 Gram(s) Topical BID as needed 11/10/19 23 024 Inactive clotrimazole 1 % topical cream RxNorm: 261739 Apply 1/2 Gram(s) Topical BID Apply to affected areas of groin, periarea, and abdominal topically 2 times daily 11/10/19 23 025 Inactive Levemir FlexPen 100 unit/mL (3 mL) solution subcutaneous insulin pen RxNorm: 645590 Inject 30 Unit(s) Subcutaneous BID 10/07/19 23 023 Inactive Humulin R U-500 (Concentrated) Insulin 500 unit/mL subcutaneous soln RxNorm: 892244 Inject 100 Unit(s) Subcutaneous TID 10/07/19 024 Inactive Ozempic 0.25 mg or 0.5 mg (2 mg/3 mL) subcutaneous pen injector RxNorm: 7594873 Inject 1/2 Milligram(s) Subcutaneous QW once a week 10/07/19 024 Inactive aripiprazole 15 mg tablet RxNorm: 374356 1/2 TAB (7.5MG) ORALLY DAILY (DX:MAJOR DEPRESSIVE DISORDER) 09/23/19 23 023 Inactive Accu-Chek Guide test strips RxNorm: Use 1 Test Strip QID 09/15/19 23 023 Inactive ok to substitute with any covered alternative test strip Lancets,Thin 28 gauge RxNorm: Use 1 as directed QID 09/15/19 23 023 Inactive torsemide 20 mg tablet RxNorm: 007570 Take 1 Tablet(s) Oral BID 09/09/19 23 024 Inactive d/c once daily dosing carvedilol 25 mg tablet RxNorm: 450342 Take 1 Tablet(s) Oral QD 08/25/19 23 024 Inactive pregabalin 150 mg capsule RxNorm: 132496 1 Capsule(s) Oral HS at bed time 08/18/19 23 023 Inactive pregabalin 100 mg capsule RxNorm: 532591 1 Capsule(s) Oral QAM every morning 08/18/19 23 023 Inactive carvedilol 25 mg tablet RxNorm: 560090 1 Tablet(s) Oral QD 07/28/19 23 023 Inactive lisinopril 20 mg tablet RxNorm: 323749 Give 1 Tablet(s) Oral QD 07/28/19 23 023 Inactive Lyrica 150 mg capsule RxNorm: 239974 Take 1 Capsule(s) Oral QHS every night at bedtime 07/19/19 23 023 Inactive d/c 100mg dose Diflucan 150 mg tablet RxNorm: 562686 Take 1 Tablet(s) Oral QD repeat on day 3 and 6 07/19/19 23 023 Inactive pregabalin 100 mg capsule RxNorm: 622158 Take 1 Capsule(s) Oral QAM every morning 07/19/19 23 023 Inactive gatifloxacin 0.5 % eye drops RxNorm: 206188 Instill 1 Drop(s) as directed TID Instill 1 drop in to affected eye(s) starting 1 day prior to surgery and continue until gone (do not exceed 4 weeks). 07/13/19 23 023 Inactive carvedilol 25 mg tablet RxNorm: 673296 2 Tablet(s) Oral BID 07/13/19 23 023 Inactive Humulin R Regular U-100 Insulin 100 unit/mL injection solution RxNorm: 457963 85 Unit(s) Injection TID 07/13/19 23 023 Inactive ketorolac 0.5 % eye drops RxNorm: 198474 Instill 1 Drop(s) as directed QID Instill 1 drop into affected eye(s) 4 times daily starting 1 day prior to surgery and continue until gone (do not exceed 4 weeks). 07/13/19 23 023 Inactive Diflucan 150 mg tablet RxNorm: 475713 Take 1 Tablet(s) Oral QD repeat on day 3 and 6 06/30/19 023 Inactive Accu-Chek Guide test strips RxNorm: Use 1 Test Strip QID Use 1 test strip to monitor blood glucose 4 times daily and as needed. Dx:E11.42. 06/23/19 023 Inactive ok to substitute with any covered alternative test strip dextromethorphan-gu aifenesin 10 mg-100 mg/5 mL oral liquid RxNorm: 578472 Take 10 Milliliter(s) Oral every 4 hours as needed for cough 06/19/19 023 Inactive dextromethorphan-gu aifenesin 10 mg-100 mg/5 mL oral liquid RxNorm: 470834 Take 10 Milliliter(s) Oral every 4 hours as needed for cough 06/19/19 23 023 Inactive Lyrica 150 mg capsule RxNorm: 567492 Take 1 Capsule(s) Oral QHS every night at bedtime 06/18/19 23 023 Inactive d/c 100mg dose aripiprazole 15 mg tablet RxNorm: 283817 1/2 TAB (7.5MG) ORALLY DAILY (DX:MAJOR DEPRESSIVE DISORDER) 06/05/19 23 023 Inactive pregabalin 100 mg capsule RxNorm: 595638 1 Capsule(s) Oral QAM every morning 06/02/19 23 023 Inactive Banophen 50 mg capsule RxNorm: 3682466 Take 1 Capsule(s) Oral Q6H every 6 hours as needed 05/19/19 No Stop Date Active Novolog Flexpen U-100 Insulin aspart 100 unit/mL (3 mL) subcutaneous RxNorm: 6761865 Inject 10 Unit(s) Subcutaneous QHS every night at bedtime with nighttime snack 04/08/20 022 Inactive Novolog Flexpen U-100 Insulin aspart 100 unit/mL (3 mL) subcutaneous RxNorm: 7302734 Inject 42 Unit(s) Subcutaneous TID in addition to sliding scale 04/08/20 022 Inactive d/c 36u albuterol sulfate HFA 90 mcg/actuation aerosol inhaler RxNorm: 6990073 Take 2 Puff(s) Inhalation Q4H every four hours as needed as needed for SOB, cough, or wheezing 04/07/20 030 Active Banophen 50 mg capsule RxNorm: 7196590 Take 1 Capsule(s) Oral Q6H every 6 hours as needed 04/06/20 023 Inactive diphenhydramine 50 mg tablet RxNorm: 4435120 Take 1 Tablet(s) Oral Q6H every 6 hours as needed 04/06/20 022 Inactive diphenhydramine 50 mg tablet RxNorm: 0228406 1 Tablet(s) Oral Q6H every 6 hours as needed 04/06/20 022 Inactive Abilify 15 mg tablet RxNorm: 232541 1/2 Tablet(s) Oral QD 03/10/20 023 Inactive Shingrix (PF) 50 mcg/0.5 mL intramuscular suspension, kit RxNorm: 6435117 Administer 1/2 Milliliter(s) Intramuscular QD one time shingrix step 2 ( step 1 given 11/04/21) WITH needle - Nursing please administer upon arrival and once administered post a bridge message with date of administration, interceptor operator, expiration date, and lot# so we can update [facility] 02/18/20 22 022 Inactive dispense with needle Shingrix (PF) 50 mcg/0.5 mL intramuscular suspension, kit RxNorm: 1138251 Administer 1/2 Milliliter(s) Intramuscular QD one time shingrix step 2 ( step 1 given 11/04/21) WITH needle - Nursing please administer upon arrival and once administered post a bridge message with date of administration, interceptor operator, expiration date, and lot# so we can update [facility] 02/18/20 22 Inactive dispense with needle Lyrica 100 mg capsule RxNorm: 989364 Take 1 Capsule(s) Oral QAM every morning 01/08/20 22 022 Inactive d/c 50mg dose acetaminophen 500 mg tablet RxNorm: 259183 Take 1 Tablet(s) Oral TID 01/08/20 22 022 Inactive d/c PRN order Lyrica 150 mg capsule RxNorm: 719039 Take 1 Capsule(s) Oral QHS every night at bedtime 01/08/20 22 023 Inactive d/c 100mg dose polyethylene glycol 3350 17 gram/dose oral powder RxNorm: 851852 Take 17=1 capful Gram(s) Oral QD mix with 4-8oz of liquid 01/08/20 22 025 Inactive take this in addition to BID prn order Abilify 5 mg tablet RxNorm: 954801 Take 1 Tablet(s) Oral QD take 1 tab po QD #30 refill 5 dx: MDD 12/12/19 22 022 Inactive Abilify 5 mg tablet RxNorm: 342895 Take 1 Tablet(s) Oral QD take 1 tab po QD #30 refill 5 dx: MDD 12/12/19 22 022 Inactive Novolog Flexpen U-100 Insulin aspart 100 unit/mL (3 mL) subcutaneous RxNorm: 0686154 Inject 42 Unit(s) Subcutaneous TID in addition to sliding scale 12/10/19 22 022 Inactive d/c 36u chlorthalidone 25 mg tablet RxNorm: 731202 Take 1 Tablet(s) Oral QAM every morning 12/10/19 22 023 Inactive pregabalin 50 mg capsule RxNorm: 541921 Take 1 Capsule(s) Oral QAM every morning 11/12/19 22 022 Inactive tetanus-diphtheria toxoids-Td 2 Lf unit-2 Lf unit/0.5 mL IM suspension RxNorm: 139 Take 0.5 Miscellaneous Intramuscular 11/12/19 22 022 Inactive need tdap - nursing to administer upon arrival pregabalin 50 mg capsule RxNorm: 842500 Take 1 Capsule(s) Oral QAM every morning 10/16/19 22 022 Inactive pregabalin 50 mg capsule RxNorm: 564915 Take 1 Capsule(s) Oral QAM every morning 10/16/19 22 022 Inactive pregabalin 50 mg capsule RxNorm: 674678 1 Capsule(s) Oral QAM every morning 10/15/19 22 022 Inactive Shingrix (PF) 50 mcg/0.5 mL intramuscular suspension, kit RxNorm: 9065305 Administer 1/2 Milliliter(s) Intramuscular one time Nursing please administer upon arrival and once administered post a bridge message with date of administration, interceptor operator, expiration date, and lot# so we can update [facility]. 10/09/19 22 022 Inactive shingrix step 1 Shingrix (PF) 50 mcg/0.5 mL intramuscular suspension, kit RxNorm: 9410760 Administer 1/2 Milliliter(s) Intramuscular one time Nursing please administer upon arrival and once administered post a bridge message with date of administration, interceptor operator, expiration date, and lot# so we [...] aspart 100 unit/mL (3 mL) subcutaneous RxNorm: 5087677 Inject 10 Unit(s) Subcutaneous QHS every night at bedtime with nighttime snack 10/08/19 22 022 Inactive Shingrix (PF) 50 mcg/0.5 mL intramuscular suspension, kit RxNorm: 5746466 ADMINISTER 2-DOSE SERIES PER CDC GUIDELINES 10/08/19 22 022 Active Shingrix (PF) 50 mcg/0.5 mL intramuscular suspension, kit RxNorm: 4811028 ADMINISTER 2-DOSE SERIES PER CDC GUIDELINES 10/08/19 22 Inactive Novolog Flexpen U-100 Insulin aspart 100 unit/mL (3 mL) subcutaneous RxNorm: 5602622 Inject 36 Unit(s) Subcutaneous TID in addition to sliding scale 10/08/19 022 Inactive cholecalciferol (vitamin D3) 1,250 mcg (50,000 unit) capsule RxNorm: 628498 Take 1 Capsule(s) Oral QW once a week 10/08/19 Inactive Novofine Autocover 30 gauge x 1/3 needle RxNorm: Use 1 Miscellaneous UD as directed Use 1 needle as directed to administer insulin 5 times a day Dx:E11.42. 10/03/19 Inactive ok to substitute with any covered alternative pen needle benzoyl peroxide 10 % topical cleanser RxNorm: 603901 Apply 1 Application Topical QD apply to face, wash rinse and dry once daily (may change to QOD if drying) 08/19/19 022 Inactive (%covered by insurance) #60ml refill 11 dx: acne benzoyl peroxide 10 % topical cleanser RxNorm: 141831 Apply 1 Application Topical QD apply to face, wash rinse and dry once daily (may change to QOD if drying) 08/19/19 22 022 Inactive (%covered by insurance) #60ml refill 11 dx: acne benzoyl peroxide 10 % topical cleanser RxNorm: 525712 Apply 1 Application Topical QD apply to face, wash rinse and dry once daily (may change to QOD if drying) 08/19/19 22 022 Inactive (%covered by insurance) #60ml refill 11 dx: acne Lyrica 50 mg capsule RxNorm: 832463 Take 1 Capsule(s) Oral QAM every morning Take 1 capsule by mouth once daily 08/19/19 22 022 Inactive benzoyl peroxide 10 % topical cleanser RxNorm: 528268 Apply 1 Application Topical QD apply to face, wash rinse and dry once daily (may change to QOD if drying) 08/19/19 22 Inactive (%covered by insurance) #60ml refill 11 dx: acne Lyrica 100 mg capsule RxNorm: 292556 Take 1 Capsule(s) Oral QHS every night at bedtime Take 1 capsule by mouth once daily at bedtime 08/19/19 22 022 Inactive Lyrica 100 mg capsule RxNorm: 860493 Take 1 Capsule(s) Oral QHS every night at bedtime Take 1 capsule by mouth once daily at bedtime 08/16/19 22 022 Inactive Lyrica 50 mg capsule RxNorm: 376700 Take 1 Capsule(s) Oral QAM every morning Take 1 capsule by mouth once daily 08/16/19 22 022 Inactive Levemir FlexTouch U-100 Insulin 100 unit/mL (3 mL) subcutaneous pen RxNorm: 736478 Inject 86 Unit(s) Subcutaneous BID 08/05/19 22 022 Inactive d/c 83units BID Lyrica 100 mg capsule RxNorm: 794908 Take 1 Capsule(s) Oral QHS every night at bedtime Take 1 capsule by mouth once daily at bedtime 07/14/19 22 022 Inactive Lyrica 50 mg capsule RxNorm: 309822 Take 1 Capsule(s) Oral QAM every morning Take 1 capsule by mouth once daily 07/14/19 22 022 Inactive Levemir FlexTouch U-100 Insulin 100 unit/mL (3 mL) subcutaneous pen RxNorm: 046243 Inject 83 Unit(s) Subcutaneous BID 07/08/19 22 [...] test strip hydralazine 50 mg tablet RxNorm: 064785 Take 1 Tablet(s) Oral QID 05/05/20 21 022 Inactive venlafaxine ER 225 mg tablet,extended release 24 hr RxNorm: 751292 Take 1 Tablet(s) Oral QD 05/05/20 21 021 Inactive venlafaxine ER 225 mg tablet,extended release 24 hr RxNorm: 943468 Take 1 Tablet(s) Oral QD 05/05/20 21 022 Inactive isosorbide mononitrate ER 30 mg tablet,extended release 24 hr RxNorm: 674520 Take 1 Tablet(s) Oral QD 05/05/20 21 024 Inactive hydralazine 50 mg tablet RxNorm: 199021 Take 1 Tablet(s) Oral QID 05/05/20 21 021 Inactive aspirin 81 mg tablet,delayed release RxNorm: 217473 Take 1 Tablet(s) Oral QD 03/31/20 022 Inactive Vitamin D2 1,250 mcg (50,000 unit) capsule RxNorm: 4344638 Take 1 Capsule(s) Oral QW once a week x 12 weeks 03/31/20 022 Inactive Vitamin D2 1,250 mcg (50,000 unit) capsule RxNorm: 4612355 Take 1 Capsule(s) Oral QW once a week 03/31/20 021 Inactive Zetia 10 mg tablet RxNorm: 400207 Take 1 Tablet(s) Oral QD 03/31/20 024 Inactive Zetia 10 mg tablet RxNorm: 657530 Take 1 Tablet(s) Oral QD 03/31/20 021 Inactive hydralazine 25 mg tablet RxNorm: 438242 Take 1 Tablet(s) Oral QID 03/31/20 021 Inactive hydralazine 25 mg tablet RxNorm: 773671 Take 1 Tablet(s) Oral QID 03/31/20 021 Inactive hydralazine 10 mg tablet RxNorm: 108262 Take 1 Tablet(s) Oral QID 03/03/20 021 Inactive cephalexin 500 mg tablet RxNorm: 798334 Take 1 Tablet(s) Oral QID 02/27/20 021 Inactive cephalexin 500 mg tablet RxNorm: 749240 Take 1 Tablet(s) Oral QID 02/27/20 021 Inactive lisinopril 40 mg tablet RxNorm: 099125 Take 1 Tablet(s) Oral QD 02/11/20 21 023 Inactive Eliquis 5 mg tablet RxNorm: 3970649 Take 1 Tablet(s) Oral BID 01/05/20 21 025 Inactive Eliquis 5 mg tablet RxNorm: 1275406 Take 2 Tablet(s) Oral QD 01/01/20 21 021 Inactive Lyrica 50 mg capsule RxNorm: 492685 Take 1 Capsule(s) Oral QAM every morning 12/24/19 21 021 Inactive Lyrica 100 mg capsule RxNorm: 450262 Take 1 Capsule(s) Oral QHS every night at bedtime 12/24/19 21 021 Inactive clotrimazole 1 % topical cream RxNorm: 352800 Apply to right foot and toes Topical BID 12/04/19 21 023 Inactive metoprolol succinate ER 200 mg tablet,extended release 24 hr RxNorm: 561369 Take 1 Tablet(s) Oral QD 12/04/19 21 023 Inactive ciprofloxacin 500 mg tablet RxNorm: 474770 Take 1 Tablet(s) Oral QD 11/30/19 21 021 Inactive DX ofloxacin otic drops Accu-Chek Guide test strips RxNorm: USE 1 TO CHECK GLUCOSE 4 TIMES DAILY AND NEEDED 11/15/19 21 023 Inactive Blood Glucose Test strips RxNorm: Use 1 Test Strip QID at PRN 11/05/19 21 023 Inactive E11.42 lisinopril 30 mg tablet RxNorm: 216143 Take 1 Tablet(s) Oral QD 10/30/19 21 021 Inactive lisinopril 20 mg tablet RxNorm: 552166 Take 1 Tablet(s) Oral QD 10/23/19 21 021 Inactive lisinopril 20 mg tablet RxNorm: 464848 Take 1 Tablet(s) Oral QD 10/23/19 21 021 Inactive lisinopril 10 mg tablet RxNorm: 500184 Take 1 Tablet(s) Oral QD 10/02/19 21 021 Inactive icosapent ethyl 1 gram capsule RxNorm: 2465615 Take 2 Capsule(s) (2 gm) Oral BID with meals 09/12/19 024 Inactive Okay to dispense one 2gm tab if you have that available. icosapent ethyl 1 gram capsule RxNorm: 1894933 Take 2 Capsule(s) Oral BID 09/12/19 21 021 Inactive Okay to dispense one 2gm tab if you have that available. amlodipine 10 mg tablet RxNorm: 269909 Take 1 Tablet(s) Oral QD 09/04/19 21 021 Inactive aspirin 81 mg tablet,delayed release RxNorm: 653294 Take 1 Tablet(s) Oral QD 09/04/19 021 Inactive Levemir FlexTouch U-100 Insulin 100 unit/mL (3 mL) subcutaneous pen RxNorm: 458356 Inject 150 Unit(s) Subcutaneous BID 09/04/19 21 022 Inactive venlafaxine ER 150 mg tablet,extended release 24 hr RxNorm: 620891 Take 1 Tablet(s) Oral QD 09/04/19 021 Inactive clotrimazole-betame thasone 1 %-0.05 % topical cream RxNorm: 473145 Apply to rash on red area on left abdomen/chest Topical BID 08/10/19 21 021 Inactive amlodipine 5 mg tablet RxNorm: 967012 Take 1 Tablet(s) Oral QD 07/31/19 21 021 Inactive cephalexin 500 mg tablet RxNorm: 021616 Take 1 Tablet(s) Oral BID BID - Twice Daily 07/31/19 021 Inactive Start 08/01/20 pantoprazole 40 mg tablet,delayed release RxNorm: 429244 Take 1 Tablet(s) Oral QAM every morning 07/08/19 025 Inactive clopidogrel 75 mg tablet RxNorm: 472941 Take 1 Tablet(s) Oral QD 07/08/19 021 Inactive Blood Glucose Test strips RxNorm: Use 1 Test Strip QID at PRN 07/08/19 21 021 Inactive E11.42 senna 8.6 mg tablet RxNorm: 689431 Take 1 Tablet(s) Oral QD 07/08/19 025 Inactive Novolog Flexpen U-100 Insulin aspart 100 unit/mL (3 mL) subcutaneous RxNorm: 2221540 Administer per sliding scale Milliliter(s) Subcutaneous TID 151-200: 10 u; 201-250: 20 u; 251-300: 30 u; 301-350: 40 u; 351-400: 50 u. 07/08/19 21 022 Inactive lisinopril 5 mg tablet RxNorm: 664710 Take 1 Tablet(s) Oral QD 07/08/19 21 021 Inactive Novolog Flexpen U-100 Insulin aspart 100 unit/mL (3 mL) subcutaneous RxNorm: 0569624 Inject 85 Unit(s) Subcutaneous TID 07/08/19 21 022 Inactive pravastatin 80 mg tablet RxNorm: 196509 Take 1 Tablet(s) Oral QHS every night at bedtime 07/08/19 023 Inactive clotrimazole 1 % topical cream RxNorm: 389546 Apply to bilateral groin areas Topical BID 07/08/19 022 Inactive metoprolol succinate ER 200 mg tablet,extended release 24 hr RxNorm: 578640 Take 1 Tablet(s) Oral QD 07/08/19 21 021 Inactive Vitamin D3 25 mcg (1,000 unit) tablet RxNorm: 946571 Take 1 Tablet(s) Oral QD 07/08/19 21 021 Inactive isosorbide dinitrate 30 mg tablet RxNorm: 300445 Take 1 Tablet(s) Oral QD 07/08/19 021 Inactive carbamazepine 200 mg tablet RxNorm: 144034 Take 1 Tablet(s) Oral BID 07/08/19 025 Inactive Levemir FlexTouch U-100 Insulin 100 unit/mL (3 mL) subcutaneous pen RxNorm: 529256 Inject 140 Unit(s) Subcutaneous BID 07/08/19 21 021 Inactive torsemide 20 mg tablet RxNorm: 864018 Take 1 Tablet(s) Oral QD 07/08/19 21 023 Inactive venlafaxine 75 mg tablet RxNorm: 155928 Take 1 Tablet(s) Oral QD 07/08/19 021 Inactive acetaminophen 500 mg tablet RxNorm: 244992 Take 1 Tablet(s) Oral TID as needed for headache 06/18/19 021 Inactive acetaminophen 500 mg tablet RxNorm: 363052 Take 1 Tablet(s) Oral TID as needed for headache 06/18/19 21 021 Inactive Lyrica 100 mg capsule RxNorm: 203810 Take 1 Capsule(s) Oral QHS every night at bedtime 06/11/19 21 021 Inactive Lyrica 50 mg capsule RxNorm: 968043 Take 1 Capsule(s) Oral QAM every morning 06/10/19 21 021 Inactive hydrocortisone 2.5 % topical cream RxNorm: 483725 Apply to bilateral groin creases Topical BID 05/15/20 20 021 Inactive clotrimazole 1 % topical cream RxNorm: 067359 Apply to bilateral groin areas Topical BID 05/15/20 20 021 Inactive Lyrica 50 mg capsule RxNorm: 574144 Take 1 Capsule(s) Oral QAM every morning 05/14/20 20 020 Inactive Lyrica 100 mg capsule RxNorm: 768930 Take 1 Capsule(s) Oral QHS every night [...] Inactive Nystop 100,000 unit/gram topical powder RxNorm: 042156 Apply to abd folds, under breasts and L side of groin Topical BID x 14 days, then BID PRN 04/08/20 20 020 Inactive dx: yeast dermatitis Lyrica 100 mg capsule RxNorm: 837662 Take 1 Capsule(s) Oral QHS every night at bedtime 03/13/20 20 020 Inactive Lyrica 50 mg capsule RxNorm: 163622 Take 1 Capsule(s) Oral QAM every morning 03/13/20 20 020 Inactive ketoconazole 2 % shampoo RxNorm: 317815 Apply Topical two times a week with showers 03/11/20 20 024 Inactive cholecalciferol (vitamin D3) 50 mcg (2,000 unit) tablet RxNorm: 143932 Take 1 Tablet(s) Oral QD 03/11/20 20 021 Inactive Zetia 10 mg tablet RxNorm: 667141 Take 1 Tablet(s) Oral QD 03/07/20 20 021 Inactive Zetia 10 mg tablet RxNorm: 775952 Take 1 Tablet(s) Oral QD 03/07/20 20 020 Inactive Lyrica 50 mg capsule RxNorm: 846246 Take 1 Capsule(s) Oral QAM every morning 02/15/20 20 Inactive Lyrica 100 mg capsule RxNorm: 625681 Take 1 Capsule(s) Oral QHS every night at bedtime 02/15/20 20 Inactive Lyrica 100 mg capsule RxNorm: 896545 Take 1 Capsule(s) Oral QHS every night at bedtime 02/15/20 20 020 Inactive Lyrica 50 mg capsule RxNorm: 279492 Take 1 Capsule(s) Oral QAM every morning 02/15/20 20 020 Inactive venlafaxine ER 75 mg capsule,extended release 24 hr RxNorm: 531731 Take 3 Capsule(s) Oral QD 06/12/19 22 023 Inactive polyethylene glycol 3350 17 gram/dose oral powder RxNorm: 444361 Take 17=1 capful Gram(s) Oral BID as needed mix with 4-8oz of liquid 06/12/19 22 024 Inactive icosapent ethyl 1 gram capsule RxNorm: 7897184 Take 2 Capsule(s) (2 gm) Oral BID with meals 10/07/19 23 023 Inactive Okay to dispense one 2gm tab if you have that available. Levemir FlexTouch U-100 Insulin 100 unit/mL (3 mL) subcutaneous pen RxNorm: 662752 Inject 80 Unit(s) Subcutaneous BID 07/14/19 23 023 Inactive metoprolol succinate ER 200 mg tablet,extended release 24 hr RxNorm: 493227 Take 1 Tablet(s) Oral QD 08/12/19 025 Inactive loperamide 2 mg capsule RxNorm: 190543 Take 1 Capsule(s) Oral QID as needed 09/06/19 025 Inactive hydralazine 50 mg tablet RxNorm: 346521 Take 1 Tablet(s) Oral QID 08/12/19 025 Inactive Soft Touch Lancets RxNorm: miscellaneous 03/04/20 025 Inactive Novolog Flexpen U-100 Insulin aspart 100 unit/mL (3 mL) subcutaneous RxNorm: 0439340 Insert 30 Unit(s) Subcutaneous TID with meals [...] Planned Activity Notes Codes Status Date Referral: [facility] [address] [id number] [place]ReferralNo Records [id number]/06/2025Referral: [facility]/Endocrinology WPtel: [address] [facility] [id number] [place]erralNo Records Oydophsp94/24/2025Referral: [facility]: [address] [facility] [facility] [address] [id number] [place]ReferralRecords Vhyoxveu93/08/2023Referral: [facility] WPtel: [address] [facility] [address] [id number]/12/2022Referral: General CardiologyReferralCompleted 1Referral: General PsychologistReferralClosedReferral: General PsychiatristReferralPatient/Family Scheduling AppointmentReferral: [facility] WPtel: [facility] [id number] USReferralFacility Scheduling AppointmentReferral: General Physical Medicine [...] Sister Jyotsna involved in his care cell# [phone] Guardian: Don (tapan met in person 09/01/21), now has Lexii (same group as don)AWV 9.. Lab Schedule: *September (CBC with diff, [...] appointment 05.26.2024 with Jessa Webster MD at [facility]. Start Pioglitazone 15 mg QD. Stop Basaglar insulin. Increase Ozempic 2 mg once wkly. Continue Humalin R U-500 100 units with meals TID. FOLLOW UP 2 MONTHS. If BG >400 add 50 units to next scheduled dose of Humalin R U 500 insulin 01/08/2025
--- OUTSIDE RECORDS SUMMARY | 2025-01-30 21:10 | XMS_ITS | CCD ---
Author Name Cecilio Durham Address [address] [facility] [address] [place] [address] Phone Organization [facility] Phone Care Team Providers Care Director [employer] Name Role Phone Harrison Durham Primary Care Provider Leona vailable Unavailable Chronic Care Management Unavaila ble Summary Purpose DataExchange Insurance Providers Payer name Policy type / Coverage type Covered democrat ID Effective Begin Date Effective End Date Medicare [place] Medicare Part B [id number] Unknown Unknown [place] Medicare Part B [id number] Unknown Unknown Family history Sister Brittany Suggs [...] on file 07/11/[address]: 283423246 Never smoker 01/16 Sexually Active? Unknown No [...] Unknown Mcc 09/03/[address]: 081985123 No Alcohol Consum ption 09/02/2020 Allergies, Adverse Reactions, Alerts Substance Reaction Codes Entered Date Inactivated Date Status * NO KNOWN FOOD ALLERGIES Vtbnvsx3307/13/2023No Inactive DateActiveLISINOPRILRxNorm: 8607282No Inactive DateActiveMetformin YNsSrtgrru23/28/2020No Inactive DateActive* NO KNOWN ENVIRONMENTAL [id number]/27/2024No Inactive DateActive Problems Condition Codes Effective Dates Condition St atus Body mass index [BMI] 60.0-69.9, adult I CD-10: Z68.44 ICD-9: V85.4408/5ActiveHistory of recent hospitalizationSNOMED CT: 265512286 ICD-10: Z92.89 ICD-9: V13.9085ActiveHypertensive heart disease without heart failureICD- 10: I11.9 ICD-9: 402.900/5ActiveHypokalemiaICD-10: E87.6 ICD-9: 276.8085ActiveMixed incontinenceSNOMED CT: 41545114 ICD-10: N39.46 ICD-9: 788.33085ActiveOSA (obstructive sleep apnea)SNOMED CT: 68318439 ICD-10: G47.33 ICD-9: 327.2308/5ActiveType 2 diabetes mellitus [...] mellitus with diabetic chronic kidney diseaseSNOMED CT: 082097544950 ICD-10: E11.22 ICD-9: 250.4005/5ActivePressure ulcer of left calf, unstageableICD-10: L89.890 ICD-9: 707.0905ResolvedDiabetic neuropathy associated with type 2 diabetes mellitusICD-10: E11.40 ICD-9: 250.6002/5ActiveHemorrhoidsICD-10: K64.9 ICD-9: 455.602/5ActivePVD (peripheral vascular disease)ICD-10: I73.9 ICD-9: 443.902/5ActiveHyperlipidemia associated with type 2 diabetes mellitusICD-10: E11.69 ICD-9: 250.8001/5ActiveAdvance care planningICD-10: Z71.89 ICD-9: V65.4912/4ActiveLow back painICD-10: M54.50 ICD-9: 724.210/4ActivePhysical deconditioningICD-10: R53.81 ICD-9: 799.310/ctiveAdvanced care planning - to document end of life [id number] physical examICD-10: Z00.00 ICD-9: V70.009ctiveHistory of anemia due to CKDICD-10: N18.9 ICD-9: 585.909/ctiveHx of deep venous thrombosisICD-10: Z86.718 ICD-9: V12.5109/ctiveLearning disabilityICD-10: F81.9 ICD-9: 315.209/ctiveReducible umbilical herniaICD-10: K42.9 ICD-9: 553.109/ctiveVitamin D deficiencyICD-10: E55.9 ICD-9: 268.909/ctiveCallus of heelICD-10: L84 ICD-9: 53391/esolvedGout due to renal impairmentICD-10: M10.30 ICD-9: 274.1005esolvedHyperhidrosis of palmsICD-10: L74.512 ICD-9: 705.21010/12/2023esolvedHyperlipidemia, unspecifiedICD-10: E78.5 ICD-9: 272.405esolvedOther custodial (current) drug therapyICD-10: Z79.899 ICD-9: V58.69010/12/2023esolvedPain of [...] tagICD-10: L91.8 ICD-9: 701.904esolvedCoronary artery disease involving [place] coronary artery of [place] heart, angina presence unspecifiedICD-10: I25.10 ICD-9: 414.0102/4ActiveInappropriate sexual behaviorICD-10: Z72.89 ICD-9: 312.8910ctivePre-op evaluationICD-10: Z01.818 ICD-9: V72.8403/ctiveSecondary hypertensionICD-10: I15.9 ICD-9: 405.9903ctiveDepressionICD-10: F32.9 ICD-9: 847562ResolvedDVT (deep venous thrombosis)ICD-10: I82.409 ICD-9: 453.4009esolvedEncounter for [...] to other viral communicable diseasesICD-10: Z20.828 ICD-9: V01.79022482HpncxvpfJjzkbwndLonghut38/28/2020ActiveDiabetes mellitus Type 7Isopmyc54/28/2020ActiveAnemia in chronic kidney diseaseICD-10: D63.1 02/12/2020ResolvedHyperlipidemia, unspecifiedICD-10: E78.Resolved Medications Medication Codes Instructions Start Date Stop Date Status Fill Instructions Culturelle 10 billion cell capsule RxNorm: 956288 Take 1 Capsule(s) Oral QD 11/08/19 25 026 Active Culturelle 10 billion cell capsule RxNorm: 433893 Take 1 Capsule(s) Oral QD 11/08/19 25 025 Inactive hydrocodone 5 mg-acetaminophen 325 mg tablet RxNorm: 723842 Take 1 Tablet(s) Oral Q4H every four hours as needed for pain PRN for severe acute dental pain 10/21/19 25 025 Inactive penicillin V potassium 500 mg tablet RxNorm: 368774 Take 1 Tablet(s) Oral QID Take until dental appointment per ER recommendation 10/21/19 25 025 Inactive hydrocodone 5 mg-acetaminophen 325 mg tablet RxNorm: 688313 Take 1 Tablet(s) Oral Q4H every four hours as needed for pain PRN for severe acute dental pain 10/21/19 25 025 Inactive penicillin V potassium 500 mg tablet RxNorm: 026938 Take 1 Tablet(s) Oral QID Take until dental appointment per ER recommendation 10/21/19 25 025 Inactive potassium chloride ER 20 mEq tablet,extended release RxNorm: 254803 Take 2 Tablet(s) Oral TID (dx: hypokalemia) 09/14/19 25 026 Active potassium chloride ER 20 mEq tablet,extended release RxNorm: 982201 Take 2 Tablet(s) Oral TID (dx: hypokalemia) 09/14/19 25 025 Inactive loperamide 2 mg tablet RxNorm: 423028 Take 2 Tablet(s) Oral UD as directed [...] Date Active senna 8.6 mg tablet RxNorm: 897135 Take 1 Tablet(s) Oral QD as needed and 1 tab BID prn 09/06/19 No Stop Date Active cyclobenzaprine 10 mg tablet RxNorm: 672999 Take 1 Tablet(s) Oral QHS every night at bedtime as needed 09/06/19 No Stop Date Active loperamide 2 mg tablet RxNorm: 482007 Take 2 Tablet(s) Oral UD as directed as needed 2 tabs after first loose stool then 1 tab after each subsequent stool PRN Do not exceed 4 doses in 24 hours. Do not administer until after 3 loose stools. 09/06/19 25 026 Active pioglitazone 15 mg tablet RxNorm: 106245 Take 1 Tablet(s) Oral QD 09/06/19 No Stop Date Active loperamide 2 mg tablet RxNorm: 257779 Take 2 Tablet(s) Oral UD as directed as needed 2 tabs after first loose stool then 1 tab after each subsequent stool PRN Do not exceed 4 doses in 24 hours. Do not administer until after 3 loose stools. 09/06/19 25 025 Inactive pregabalin 100 mg capsule RxNorm: 553512 1 CAPSULE BY MOUTH EVERY MORNING (DX: NEUROPATHY) 08/23/19 25 025 Active FACILITY IS REQUESTING REFILL. PRIOR RX HAS BEEN EXHAUSTED. THANK YOU. pregabalin 150 mg capsule RxNorm: 758932 1 CAPSULE BY MOUTH AT BEDTIME (DX: NEUROPATHY) 08/21/19 25 025 Inactive FACILITY IS REQUESTING A REFILL OF THIS MEDICATION, THANK YOU! senna 8.6 mg tablet RxNorm: 050623 Take 1 Tablet(s) Oral QD as needed for constipation on day 2 of no bowel movement 08/09/19 25 025 Inactive Miralax 17 gram/dose oral powder RxNorm: 941754 Administer 17 Gram(s) Oral QD as needed for constipation on day 3 of no bowel movement 08/09/19 25 025 Inactive senna 8.6 mg tablet RxNorm: 851560 Take 1 Tablet(s) Oral QD as needed for constipation on day 2 of no bowel movement 08/09/19 25 025 Inactive Miralax 17 gram/dose oral powder RxNorm: 354389 Administer 17 Gram(s) Oral QD as needed for constipation on day 3 of no bowel movement 08/09/19 025 Inactive pregabalin 100 mg capsule RxNorm: 364589 Take 1 Capsule(s) Oral QAM every morning [...] (Concentrated) Insulin 500 unit/mL subcutaneous soln RxNorm: 385069 Inject 100 Unit(s) Subcutaneous AC before meals Three times daily before meals. 07/24/19 25 025 Inactive ammonium lactate 12 % topical cream RxNorm: 245278 Apply 1 Application Topical BID 07/20/19 No Stop Date Active ezetimibe 10 mg tablet RxNorm: 155642 Take 1 Tablet(s) Oral QD 07/18/19 No Stop Date Active senna 8.6 mg tablet RxNorm: 781363 Take 1 Tablet(s) Oral QD 07/18/19 25 025 Inactive metoprolol succinate ER 200 mg tablet,extended release 24 hr RxNorm: 732035 Take 1 Tablet(s) Oral QD 06/19/19 No Stop Date Active pantoprazole 40 mg tablet,delayed release RxNorm: 227475 Take 1 Tablet(s) Oral QAM every morning 02/03/20 25 No Stop Date Active hydralazine 50 mg tablet RxNorm: 550338 Take 1 Tablet(s) Oral QID 06/19/19 25 No Stop Date Active carbamazepine 200 mg tablet RxNorm: 029875 Take 1 Tablet(s) Oral BID 06/19/19 25 No Stop Date Active amlodipine 10 mg tablet RxNorm: 976222 Take 1 Tablet(s) Oral QD 06/19/19 25 No Stop Date Active Eliquis 5 mg tablet RxNorm: 2855680 Take 1 Tablet(s) Oral BID 06/19/19 25 No Stop Date Active pen needle, diabetic 30 gauge x 3/16 RxNorm: Use 1 6 times per day w/insulin 06/14/19 25 026 Active pen needle, diabetic 30 gauge x 3/16 RxNorm: Use 1 needle 6 times per day w/insulin 06/14/19 25 025 Inactive nystatin 100,000 unit/gram topical powder RxNorm: 662759 Apply 1 Application Topical BID as needed abdominal/breast/ groin folds 05/24/19 25 026 Active pregabalin 100 mg capsule RxNorm: 650461 Take 1 Capsule(s) Oral QAM every morning 05/22/19 25 025 Inactive nystatin 100,000 unit/gram topical powder RxNorm: 549794 Apply 1 Application Topical BID as needed abdominal/breast/ groin folds 04/11/20 24 024 Inactive chlorthalidone 25 mg tablet RxNorm: 408136 Take 1 Tablet(s) Oral QAM every morning 04/06/20 24 No Stop Date Active pregabalin 150 mg capsule RxNorm: 557181 Take 1 Capsule(s) Oral QHS every night at bedtime 03/31/20 24 024 Inactive Vascepa 1 gram capsule RxNorm: 5900818 Take 2 Capsule(s) Oral BID 03/30/20 24 025 Active rosuvastatin 40 mg tablet RxNorm: 355600 1 TAB ORALLY EVERY EVENING (DX:CORONARY ARTERY DISEASE) 03/28/20 24 No Stop Date Active venlafaxine ER 75 mg capsule,extended release 24 hr RxNorm: 189987 3 CAPS (225MG) ORALLY DAILY (DX: MOOD DISORDER) 03/28/20 No Stop Date Active pregabalin 100 mg capsule RxNorm: 102795 Take 1 Capsule(s) Oral QAM every morning 03/20/20 Inactive cholecalciferol (vitamin D3) 1,250 mcg (50,000 unit) capsule RxNorm: 972963 Take 1 Capsule(s) Oral QW once a [...] Insulin 100 unit/mL (3 mL) subcutaneous RxNorm: 8745719 Inject 40 Unit(s) Subcutaneous BID 03/07/20 025 Inactive Please dispense one month supply. Humulin R U-500 (Concentrated) Insulin 500 unit/mL subcutaneous soln RxNorm: 346121 Inject 100 Unit(s) Subcutaneous AC before meals [...] PRN) to be use with new Accu Bradley meter 03/04/20 Inactive ok to substitute with any covered alternative test strip FreeStyle Chema 2 Sensor kit RxNorm: Use UD as directed 03/02/20 Inactive Pen Needle 30 gauge x 516 RxNorm: Pen(s) Use 1 needle as directed TID 03/02/20 Inactive nystatin 100,000 unit/gram topical powder RxNorm: 916953 Apply 1 Application Topical BID as needed [...] (Concentrated) Insulin 500 unit/mL subcutaneous soln RxNorm: 672475 Inject 100 Unit(s) Subcutaneous TID 02/17/20 24 024 Inactive Humulin R U-500 (Concentrated) Insulin 500 unit/mL subcutaneous soln RxNorm: 080653 Inject 100 Unit(s) Subcutaneous TID 02/10/20 24 024 Inactive Basaglar KwikPen U-100 Insulin 100 unit/mL (3 mL) subcutaneous RxNorm: 5255572 Inject 30 Unit(s) Subcutaneous BID 02/10/20 24 024 Inactive Please dispense one month supply. pregabalin 100 mg capsule RxNorm: 761520 Take 1 Capsule(s) Oral QAM every morning 02/07/20 24 024 Inactive isosorbide mononitrate ER 60 mg tablet,extended release 24 hr RxNorm: 093973 Take 1 Tablet(s) Oral QD 02/01/20 24 Inactive aripiprazole 15 mg tablet RxNorm: 911106 Take 1/2 Tablet(s) Oral QD 02/01/20 24 025 Inactive torsemide 20 mg tablet RxNorm: 480457 1 TAB ORALLY DAILY (DX: EDEMA) 01/27/20 No Stop Date Active potassium chloride ER 20 mEq tablet,extended release(part/cryst) RxNorm: 1985381 2 TABS (40MEQ) ORALLY TWICE DAILY (DX: HYPOKALEMIA) 01/27/20 24 025 Inactive cephalexin 500 mg capsule RxNorm: 158378 Take 1 Capsule(s) Oral QID 12/17/19 24 024 Inactive cephalexin 500 mg capsule RxNorm: 880314 Take 1 Capsule(s) Oral QID 12/17/19 24 024 Inactive acetaminophen 500 mg tablet RxNorm: 137965 (MAX APAP:4GM/24HR) Take 1 Tablet(s) Oral TID as needed for pain 12/10/19 24 024 Inactive torsemide 20 mg tablet RxNorm: 731397 Take 1 Tablet(s) Oral QD 10/26/19 24 024 Inactive potassium chloride ER 20 mEq tablet,extended release RxNorm: 19800522 Take 2 Tablet(s) Oral BID 10/26/19 24 024 Inactive torsemide 20 mg tablet RxNorm: 281756 Take 1 Tablet(s) Oral QD 10/26/19 24 Inactive potassium chloride ER 20 mEq tablet,extended release RxNorm: 19800522 Take 2 Tablet(s) Oral BID 10/26/19 24 Inactive Artificial Tears (PF) 0.1 %-0.3 % drops in a dropperette RxNorm: 421934 Apply 1-2 Drop(s) Both eyes BID as needed 09/28/19 24 Inactive erythromycin 5 mg/gram (0.5 %) eye ointment RxNorm: 691599 Apply 1 Application Both eyes QHS every night at bedtime Instill ~1 cm ribbon into affected eye 09/28/19 24 024 Inactive Artificial Tears (PF) 0.1 %-0.3 % drops in a dropperette RxNorm: 354843 Apply 1-2 Drop(s) Both eyes BID as needed 09/28/19 24 Inactive erythromycin 5 mg/gram (0.5 %) eye ointment RxNorm: 590590 Apply 1 Application Both eyes QHS every night at bedtime Instill ~1 cm ribbon into affected eye 09/28/19 24 Inactive acetaminophen 500 mg tablet RxNorm: 057692 (MAX APAP:4GM/24HR) Take 1 Tablet(s) Oral TID as needed for pain 09/24/19 24 Inactive carvedilol 25 mg tablet RxNorm: 810838 Take 1 Tablet(s) Oral QD 09/08/19 24 No Stop Date Active pregabalin 100 mg capsule RxNorm: 800116 Take 1 Capsule(s) Oral QAM every morning 09/07/19 24 024 Inactive bisacodyl 10 mg rectal suppository RxNorm: 517754 Insert 1 Suppository Rectal QD as needed 07/13/19 24 No Stop Date Active ketoconazole 2 % shampoo RxNorm: 007060 Apply 1 Application Topical UD as directed 07/13/19 24 No Stop Date Active Ozempic 1 mg/dose (4 mg/3 mL) subcutaneous pen injector RxNorm: 3217303 Inject 1 Milligram(s) Subcutaneous QW once a week 07/13/19 24 No Stop Date Active Guaifenesin AC 10 mg-100 mg/5 mL oral liquid RxNorm: 106489 Take 10 Milliliter(s) Oral Q4H every four hours as needed 07/13/19 24 No Stop Date Active hydrocortisone 2.5 % topical cream RxNorm: 506151 Apply 1 Application Topical BID as needed 07/13/19 24 No Stop Date Active rosuvastatin 40 mg tablet RxNorm: 457262 Take 1 Tablet(s) Oral QPM every evening 07/13/19 24 024 Inactive ezetimibe 10 mg tablet RxNorm: 605437 Take 1 Tablet(s) Oral QD 07/13/19 24 025 Inactive polyethylene glycol 3350 17 gram/dose oral powder RxNorm: 655545 Take 17 Gram(s) Oral BID as needed mix in 4-8ox water 07/13/19 24 025 Inactive aripiprazole 15 mg tablet RxNorm: 986750 Take 1/2 Tablet(s) Oral QD 07/13/19 24 024 Inactive isosorbide mononitrate ER 60 mg tablet,extended release 24 hr RxNorm: 569285 Take 1 Tablet(s) Oral QD 07/13/19 24 024 Inactive ammonium lactate 12 % topical cream RxNorm: 495015 Apply 1 Application Topical BID 07/13/19 24 025 Inactive rosuvastatin 20 mg sprinkle capsule RxNorm: 4204612 Take 1 Capsule(s) Oral QD 07/13/19 24 025 Inactive Vascepa 1 gram capsule RxNorm: 0384885 Take 2 Capsule(s) Oral BID 07/13/19 24 024 Inactive venlafaxine ER 75 mg capsule,extended release 24 hr RxNorm: 348080 Take 3 Capsule(s) Oral QD 07/13/19 24 024 Inactive Basaglar KwikPen U-100 Insulin 100 unit/mL (3 mL) subcutaneous RxNorm: 3948246 Inject 30U SubQ twice daily 07/07/19 24 024 Inactive Please dispense one month supply. Basaglar KwikPen U-100 Insulin 100 unit/mL (3 mL) subcutaneous RxNorm: 7457385 Inject 30U SubQ twice daily 07/07/19 24 024 Inactive Please dispense one month supply. pregabalin 150 mg capsule RxNorm: 887804 Take 1 Capsule(s) Oral QHS every night at bedtime 07/05/19 24 024 Inactive pregabalin 150 mg capsule RxNorm: 419450 Take 1 Capsule(s) Oral QHS every night at bedtime 07/05/19 24 024 Inactive polyethylene glycol 3350 17 gram/dose oral powder RxNorm: 470537 Take 1 Packet Oral QD as needed (1 packet = 17g) mix with 4-8oz of liquid 06/15/19 024 Inactive bisacodyl 10 mg rectal suppository RxNorm: 537774 Insert one suppository per rectum once daily as needed for constipation 06/15/19 024 Inactive bisacodyl 10 mg rectal suppository RxNorm: 854018 Insert one suppository per rectum once daily as needed for constipation 06/15/19 024 Inactive pregabalin 100 mg capsule RxNorm: 078705 Take 1 Capsule(s) Oral QAM every morning 04/27/20 024 Inactive Levemir FlexPen 100 unit/mL (3 mL) solution subcutaneous insulin pen RxNorm: 371668 Inject 30 Unit(s) Subcutaneous BID 04/27/20 024 Inactive rosuvastatin 40 mg tablet RxNorm: 575814 Take 1 Tablet(s) Oral QPM every evening 04/16/20 024 Inactive D/C rosuvastatin 20mg venlafaxine ER 75 mg capsule,extended release 24 hr RxNorm: 634454 Take 3 Capsule(s) Oral QD 04/14/20 023 Inactive pregabalin 100 mg capsule RxNorm: 017838 Take 1 Capsule(s) Oral QAM every morning [...] strip clotrimazole 1 % topical cream RxNorm: 728966 Take apply topically to abdominal folds twice daily for 14 days 03/12/20 024 Inactive Ozempic 1 mg/dose (4 mg/3 mL) subcutaneous pen injector RxNorm: 6574989 Inject 1 Milligram(s) Subcutaneous QW once a week 03/11/20 023 Inactive rosuvastatin 20 mg tablet RxNorm: 751388 Take 1 Tablet(s) Oral QD 02/26/20 23 023 Inactive d/c pravastatin 80mg Ozempic 1 mg/dose (4 mg/3 mL) subcutaneous pen injector RxNorm: 5991049 Inject 1 Milligram(s) Subcutaneous QW once a week 02/20/20 23 023 Inactive pregabalin 150 mg capsule RxNorm: 251440 Take 1 Capsule(s) Oral HS at bed time 02/19/20 23 023 Inactive pregabalin 100 mg capsule RxNorm: 951176 Take 1 Capsule(s) Oral QAM every morning 02/18/20 23 023 Inactive venlafaxine ER 75 mg capsule,extended release 24 hr RxNorm: 543061 Take 3 Capsule(s) Oral QD 02/04/20 23 023 Inactive FreeStyle Chema 2 Sensor kit RxNorm: use as directed 02/04/20 23 023 Inactive FreeStyle Chema 2 Sensor kit RxNorm: use as directed 02/04/20 23 024 Inactive fluconazole 150 mg tablet RxNorm: 887532 Take 1 Tablet(s) Oral on day 3 and on day 6 02/03/20 024 Inactive venlafaxine ER 150 mg capsule,extended release 24 hr RxNorm: 659443 Take 1 Capsule(s) Oral QD 02/03/20 23 023 Inactive chlorthalidone 25 mg tablet RxNorm: 369182 Take 1 Tablet(s) Oral QAM every morning 02/03/20 23 024 Inactive acetaminophen 500 mg tablet RxNorm: 018363 1 TABLET ORALLY 3 TIMES DAILY (MAX APAP:4GM/24HR) 12/15/19 23 023 Inactive potassium chloride ER 20 mEq tablet,extended release RxNorm: 451393 Take 1 Tablet(s) Oral BID 12/09/19 23 024 Inactive d/c 20mEq once daily (sent from hospital) clotrimazole 1 % topical cream RxNorm: 459948 apply 1g topically to top of feet and in between toes BID 12/09/19 23 025 Inactive nystatin 100,000 unit/gram topical powder RxNorm: 539851 APPLY TO AFFECTED AREAS TOPICALLY 2 TIMES DAILY 11/21/19 23 023 Inactive Nystop 100,000 unit/gram topical powder RxNorm: 045913 Apply to abd folds, under breasts and L side of groin Topical BID x 14 days, then BID PRN 11/20/19 023 Inactive dx: yeast dermatitis [place] Ultra Strength 4 %-30 %-10 % topical cream RxNorm: 675419 Apply 1 Gram(s) Topical QID PRN to feet and legs for neuropathic pain 11/11/19 024 Inactive clotrimazole 1 % topical cream RxNorm: 960140 Apply 1/2 Gram(s) Topical BID Apply to affected areas of groin, periarea, and abdominal topically 2 times daily 11/10/19 025 Inactive hydrocortisone 2.5 % topical cream RxNorm: 409237 Apply 1/2 Gram(s) Topical BID as needed 11/10/19 024 Inactive Levemir FlexPen 100 unit/mL (3 mL) solution subcutaneous insulin pen RxNorm: 764561 Inject 30 Unit(s) Subcutaneous BID 10/07/19 23 023 Inactive Humulin R U-500 (Concentrated) Insulin 500 unit/mL subcutaneous soln RxNorm: 313293 Inject 100 Unit(s) Subcutaneous TID 10/07/19 024 Inactive Ozempic 0.25 mg or 0.5 mg (2 mg/3 mL) subcutaneous pen injector RxNorm: 7529434 Inject 1/2 Milligram(s) Subcutaneous QW once a week 10/07/19 024 Inactive aripiprazole 15 mg tablet RxNorm: 119480 1/2 TAB (7.5MG) ORALLY DAILY (DX:MAJOR DEPRESSIVE DISORDER) 09/23/19 023 Inactive Accu-Chek Guide test strips RxNorm: Use 1 Test Strip QID 09/15/19 23 023 Inactive ok to substitute with any covered alternative test strip Lancets,Thin 28 gauge RxNorm: Use 1 as directed QID 09/15/19 23 023 Inactive torsemide 20 mg tablet RxNorm: 848925 Take 1 Tablet(s) Oral BID 09/09/19 23 024 Inactive d/c once daily dosing carvedilol 25 mg tablet RxNorm: 564858 Take 1 Tablet(s) Oral QD 08/25/19 23 024 Inactive pregabalin 150 mg capsule RxNorm: 425964 1 Capsule(s) Oral HS at bed time 08/18/19 23 023 Inactive pregabalin 100 mg capsule RxNorm: 299321 1 Capsule(s) Oral QAM every morning 08/18/19 23 023 Inactive carvedilol 25 mg tablet RxNorm: 656322 1 Tablet(s) Oral QD 07/28/19 23 023 Inactive lisinopril 20 mg tablet RxNorm: 894210 Give 1 Tablet(s) Oral QD 07/28/19 23 023 Inactive Lyrica 150 mg capsule RxNorm: 142788 Take 1 Capsule(s) Oral QHS every night at bedtime 07/19/19 23 023 Inactive d/c 100mg dose Diflucan 150 mg tablet RxNorm: 278359 Take 1 Tablet(s) Oral QD repeat on day 3 and 6 07/19/19 23 023 Inactive pregabalin 100 mg capsule RxNorm: 492460 Take 1 Capsule(s) Oral QAM every morning 07/19/19 23 023 Inactive gatifloxacin 0.5 % eye drops RxNorm: 477610 Instill 1 Drop(s) as directed TID Instill 1 drop in to affected eye(s) starting 1 day prior to surgery and continue until gone (do not exceed 4 weeks). 07/13/19 23 023 Inactive carvedilol 25 mg tablet RxNorm: 709884 2 Tablet(s) Oral BID 07/13/19 23 023 Inactive Humulin R Regular U-100 Insulin 100 unit/mL injection solution RxNorm: 089554 85 Unit(s) Injection TID 07/13/19 23 023 Inactive ketorolac 0.5 % eye drops RxNorm: 996161 Instill 1 Drop(s) as directed QID Instill 1 drop into affected eye(s) 4 times daily starting 1 day prior to surgery and continue until gone (do not exceed 4 weeks). 07/13/19 23 023 Inactive Diflucan 150 mg tablet RxNorm: 712214 Take 1 Tablet(s) Oral QD repeat on day 3 and 6 06/30/19 23 023 Inactive Accu-Chek Guide test strips RxNorm: Use 1 Test Strip QID Use 1 test strip to monitor blood glucose 4 times daily and as needed. Dx:E11.42. 06/23/19 23 023 Inactive ok to substitute with any covered alternative test strip dextromethorphan-gu aifenesin 10 mg-100 mg/5 mL oral liquid RxNorm: 542966 Take 10 Milliliter(s) Oral every 4 hours as needed for cough 06/19/19 023 Inactive dextromethorphan-gu aifenesin 10 mg-100 mg/5 mL oral liquid RxNorm: 688318 Take 10 Milliliter(s) Oral every 4 hours as needed for cough 06/19/19 023 Inactive Lyrica 150 mg capsule RxNorm: 795764 Take 1 Capsule(s) Oral QHS every night at bedtime 06/18/19 23 023 Inactive d/c 100mg dose aripiprazole 15 mg tablet RxNorm: 171942 1/2 TAB (7.5MG) ORALLY DAILY (DX:MAJOR DEPRESSIVE DISORDER) 06/05/19 23 023 Inactive pregabalin 100 mg capsule RxNorm: 578373 1 Capsule(s) Oral QAM every morning 06/02/19 23 023 Inactive Banophen 50 mg capsule RxNorm: 9174478 Take 1 Capsule(s) Oral Q6H every 6 hours as needed 05/19/19 23 No Stop Date Active Novolog Flexpen U-100 Insulin aspart 100 unit/mL (3 mL) subcutaneous RxNorm: 8237190 Inject 10 Unit(s) Subcutaneous QHS every night at bedtime with nighttime snack 04/08/20 22 022 Inactive Novolog Flexpen U-100 Insulin aspart 100 unit/mL (3 mL) subcutaneous RxNorm: 4283233 Inject 42 Unit(s) Subcutaneous TID in addition to sliding scale 04/08/20 022 Inactive d/c 36u albuterol sulfate HFA 90 mcg/actuation aerosol inhaler RxNorm: 1331201 Take 2 Puff(s) Inhalation Q4H every four hours as needed as needed for SOB, cough, or wheezing 04/07/20 030 Active Banophen 50 mg capsule RxNorm: 3100146 Take 1 Capsule(s) Oral Q6H every 6 hours as needed 04/06/20 023 Inactive diphenhydramine 50 mg tablet RxNorm: 0240228 Take 1 Tablet(s) Oral Q6H every 6 hours as needed 04/06/20 022 Inactive diphenhydramine 50 mg tablet RxNorm: 6007412 1 Tablet(s) Oral Q6H every 6 hours as needed 04/06/20 022 Inactive Abilify 15 mg tablet RxNorm: 092858 1/2 Tablet(s) Oral QD 03/10/20 023 Inactive Shingrix (PF) 50 mcg/0.5 mL intramuscular suspension, kit RxNorm: 5108357 Administer 1/2 Milliliter(s) Intramuscular QD one time shingrix step 2 ( step 1 given 11/04/21) WITH needle - Nursing please administer upon arrival and once administered post a bridge message with 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, 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, expiration date, and lot# so we can update [facility] 02/18/20 22 022 Inactive dispense with needle Shingrix (PF) 50 mcg/0.5 mL intramuscular suspension, kit RxNorm: 4642767 Administer 1/2 Milliliter(s) Intramuscular QD one time shingrix step 2 ( step 1 given 11/04/21) WITH needle - Nursing please administer upon arrival and once administered post a bridge message with date of administration, 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, expiration date, and lot# so we can update [facility] 02/18/20 22 022 Inactive dispense with needle Lyrica 100 mg capsule RxNorm: 410398 Take 1 Capsule(s) Oral QAM every morning 01/08/20 22 022 Inactive d/c 50mg dose acetaminophen 500 mg tablet RxNorm: 493227 Take 1 Tablet(s) Oral TID 01/08/20 22 022 Inactive d/c PRN order Lyrica 150 mg capsule RxNorm: 667604 Take 1 Capsule(s) Oral QHS every night at bedtime 01/08/20 22 023 Inactive d/c 100mg dose polyethylene glycol 3350 17 gram/dose oral powder RxNorm: 084277 Take 17=1 capful Gram(s) Oral QD mix with 4-8oz of liquid 01/08/20 22 025 Inactive take this in addition to BID prn order Abilify 5 mg tablet RxNorm: 842198 Take 1 Tablet(s) Oral QD take 1 tab po QD #30 refill 5 dx: MDD 12/12/19 22 022 Inactive Abilify 5 mg tablet RxNorm: 626469 Take 1 Tablet(s) Oral QD take 1 tab po QD #30 refill 5 dx: MDD 12/12/19 22 022 Inactive Novolog Flexpen U-100 Insulin aspart 100 unit/mL (3 mL) subcutaneous RxNorm: 6364178 Inject 42 Unit(s) Subcutaneous TID in addition to sliding scale 12/10/19 22 022 Inactive d/c 36u chlorthalidone 25 mg tablet RxNorm: 739090 Take 1 Tablet(s) Oral QAM every morning 12/10/19 22 023 Inactive pregabalin 50 mg capsule RxNorm: 655489 Take 1 Capsule(s) Oral QAM every morning 11/12/19 22 022 Inactive tetanus-diphtheria toxoids-Td 2 Lf unit-2 Lf unit/0.5 mL IM suspension RxNorm: 139 Take 0.5 Miscellaneous Intramuscular 11/12/19 22 022 Inactive need tdap - nursing to administer upon arrival pregabalin 50 mg capsule RxNorm: 849306 Take 1 Capsule(s) Oral QAM every morning 10/16/19 22 022 Inactive pregabalin 50 mg capsule RxNorm: 562856 Take 1 Capsule(s) Oral QAM every morning 10/16/19 22 Inactive pregabalin 50 mg capsule RxNorm: 954130 1 Capsule(s) Oral QAM every morning 10/15/19 22 Inactive Shingrix (PF) 50 mcg/0.5 mL intramuscular suspension, kit RxNorm: 2606452 Administer 1/2 Milliliter(s) Intramuscular one time Nursing please administer upon arrival and once administered post a 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, and lot# so we can [...] aspart 100 unit/mL (3 mL) subcutaneous RxNorm: 7547112 Inject 10 Unit(s) Subcutaneous QHS every night at bedtime with nighttime snack 10/08/19 22 Inactive Shingrix (PF) 50 mcg/0.5 mL intramuscular suspension, kit RxNorm: 1797705 ADMINISTER 2-DOSE SERIES PER CDC GUIDELINES 10/08/19 22 022 Active Shingrix (PF) 50 mcg/0.5 mL intramuscular suspension, kit RxNorm: 3837287 ADMINISTER 2-DOSE SERIES PER CDC GUIDELINES 10/08/19 22 022 Inactive Novolog Flexpen U-100 Insulin aspart 100 unit/mL (3 mL) subcutaneous RxNorm: 4372239 Inject 36 Unit(s) Subcutaneous TID in addition to sliding scale 10/08/19 022 Inactive cholecalciferol (vitamin D3) 1,250 mcg (50,000 unit) capsule RxNorm: 375444 Take 1 Capsule(s) Oral QW once a week 10/08/19 024 Inactive Novofine Autocover 30 gauge x 1/3 needle RxNorm: Use 1 Miscellaneous UD as directed Use 1 needle as directed to administer insulin 5 times a day Dx:E11.42. 10/03/19 22 022 Inactive ok to substitute with any covered alternative pen needle benzoyl peroxide 10 % topical cleanser RxNorm: 026266 Apply 1 Application Topical QD apply to face, wash rinse and dry once daily (may change to QOD if drying) 08/19/19 22 022 Inactive (%covered by insurance) #60ml refill 11 dx: acne benzoyl peroxide 10 % topical cleanser RxNorm: 768920 Apply 1 Application Topical QD apply to face, wash rinse and dry once daily (may change to QOD if drying) 08/19/19 22 022 Inactive (%covered by insurance) #60ml refill 11 dx: acne benzoyl peroxide 10 % topical cleanser RxNorm: 763095 Apply 1 Application Topical QD apply to face, wash rinse and dry once daily (may change to QOD if drying) 08/19/19 22 022 Inactive (%covered by insurance) #60ml refill 11 dx: acne Lyrica 50 mg capsule RxNorm: 486673 Take 1 Capsule(s) Oral QAM every morning Take 1 capsule by mouth once daily 08/19/19 22 022 Inactive benzoyl peroxide 10 % topical cleanser RxNorm: 554329 Apply 1 Application Topical QD apply to face, wash rinse and dry once daily (may change to QOD if drying) 08/19/19 22 022 Inactive (%covered by insurance) #60ml refill 11 dx: acne Lyrica 100 mg capsule RxNorm: 816076 Take 1 Capsule(s) Oral QHS every night at bedtime Take 1 capsule by mouth once daily at bedtime 08/19/19 22 022 Inactive Lyrica 100 mg capsule RxNorm: 982412 Take 1 Capsule(s) Oral QHS every night at bedtime Take 1 capsule by mouth once daily at bedtime 08/16/19 22 022 Inactive Lyrica 50 mg capsule RxNorm: 979343 Take 1 Capsule(s) Oral QAM every morning Take 1 capsule by mouth once daily 08/16/19 22 022 Inactive Levemir FlexTouch U-100 Insulin 100 unit/mL (3 mL) subcutaneous pen RxNorm: 054235 Inject 86 Unit(s) Subcutaneous BID 08/05/19 22 022 Inactive d/c 83units BID Lyrica 100 mg capsule RxNorm: 719750 Take 1 Capsule(s) Oral QHS every night at bedtime Take 1 capsule by mouth once daily at bedtime 07/14/19 22 022 Inactive Lyrica 50 mg capsule RxNorm: 299597 Take 1 Capsule(s) Oral QAM every morning Take 1 capsule by mouth once daily 07/14/19 22 022 Inactive Levemir FlexTouch U-100 Insulin 100 unit/mL (3 mL) subcutaneous pen RxNorm: 427106 Inject 83 Unit(s) Subcutaneous BID 07/08/19 22 [...] test strip hydralazine 50 mg tablet RxNorm: 791041 Take 1 Tablet(s) Oral QID 05/05/20 21 022 Inactive venlafaxine ER 225 mg tablet,extended release 24 hr RxNorm: 361461 Take 1 Tablet(s) Oral QD 05/05/20 21 021 Inactive venlafaxine ER 225 mg tablet,extended release 24 hr RxNorm: 726339 Take 1 Tablet(s) Oral QD 05/05/20 21 022 Inactive isosorbide mononitrate ER 30 mg tablet,extended release 24 hr RxNorm: 424646 Take 1 Tablet(s) Oral QD 05/05/20 21 024 Inactive hydralazine 50 mg tablet RxNorm: 363079 Take 1 Tablet(s) Oral QID 05/05/20 21 021 Inactive aspirin 81 mg tablet,delayed release RxNorm: 735861 Take 1 Tablet(s) Oral QD 03/31/20 21 022 Inactive Vitamin D2 1,250 mcg (50,000 unit) capsule RxNorm: 4651694 Take 1 Capsule(s) Oral QW once a week x 12 weeks 03/31/20 022 Inactive Vitamin D2 1,250 mcg (50,000 unit) capsule RxNorm: 3558568 Take 1 Capsule(s) Oral QW once a week 03/31/20 021 Inactive Zetia 10 mg tablet RxNorm: 334833 Take 1 Tablet(s) Oral QD 03/31/20 024 Inactive Zetia 10 mg tablet RxNorm: 571617 Take 1 Tablet(s) Oral QD 03/31/20 021 Inactive hydralazine 25 mg tablet RxNorm: 453945 Take 1 Tablet(s) Oral QID 03/31/20 021 Inactive hydralazine 25 mg tablet RxNorm: 345941 Take 1 Tablet(s) Oral QID 03/31/20 021 Inactive hydralazine 10 mg tablet RxNorm: 269471 Take 1 Tablet(s) Oral QID 03/03/20 021 Inactive cephalexin 500 mg tablet RxNorm: 261531 Take 1 Tablet(s) Oral QID 02/27/20 021 Inactive cephalexin 500 mg tablet RxNorm: 403341 Take 1 Tablet(s) Oral QID 02/27/20 021 Inactive lisinopril 40 mg tablet RxNorm: 874870 Take 1 Tablet(s) Oral QD 02/11/20 023 Inactive Eliquis 5 mg tablet RxNorm: 8920409 Take 1 Tablet(s) Oral BID 01/05/20 21 025 Inactive Eliquis 5 mg tablet RxNorm: 9143595 Take 2 Tablet(s) Oral QD 01/01/20 21 021 Inactive Lyrica 50 mg capsule RxNorm: 519226 Take 1 Capsule(s) Oral QAM every morning 12/24/19 21 021 Inactive Lyrica 100 mg capsule RxNorm: 857256 Take 1 Capsule(s) Oral QHS every night at bedtime 12/24/19 21 021 Inactive clotrimazole 1 % topical cream RxNorm: 000468 Apply to right foot and toes Topical BID 12/04/19 21 023 Inactive metoprolol succinate ER 200 mg tablet,extended release 24 hr RxNorm: 867426 Take 1 Tablet(s) Oral QD 07/20/ 023 Inactive ciprofloxacin 500 mg tablet RxNorm: 555753 Take 1 Tablet(s) Oral QD 11/30/19 21 021 Inactive DX ofloxacin otic drops Accu-Chek Guide test strips RxNorm: USE 1 TO CHECK GLUCOSE 4 TIMES DAILY AND NEEDED 11/15/19 21 023 Inactive Blood Glucose Test strips RxNorm: Use 1 Test Strip QID at PRN 11/05/19 21 023 Inactive E11.42 lisinopril 30 mg tablet RxNorm: 647119 Take 1 Tablet(s) Oral QD 10/30/19 021 Inactive lisinopril 20 mg tablet RxNorm: 905953 Take 1 Tablet(s) Oral QD 10/23/19 21 021 Inactive lisinopril 20 mg tablet RxNorm: 986780 Take 1 Tablet(s) Oral QD 10/23/19 21 021 Inactive lisinopril 10 mg tablet RxNorm: 524534 Take 1 Tablet(s) Oral QD 10/02/19 21 021 Inactive icosapent ethyl 1 gram capsule RxNorm: 6408950 Take 2 Capsule(s) (2 gm) Oral BID with meals 09/12/19 024 Inactive Okay to dispense one 2gm tab if you have that available. icosapent ethyl 1 gram capsule RxNorm: 9923389 Take 2 Capsule(s) Oral BID 09/12/19 21 021 Inactive Okay to dispense one 2gm tab if you have that available. amlodipine 10 mg tablet RxNorm: 993766 Take 1 Tablet(s) Oral QD 09/04/19 21 021 Inactive aspirin 81 mg tablet,delayed release RxNorm: 647775 Take 1 Tablet(s) Oral QD 09/04/19 21 021 Inactive Levemir FlexTouch U-100 Insulin 100 unit/mL (3 mL) subcutaneous pen RxNorm: 208442 Inject 150 Unit(s) Subcutaneous BID 09/04/19 21 022 Inactive venlafaxine ER 150 mg tablet,extended release 24 hr RxNorm: 892817 Take 1 Tablet(s) Oral QD 09/04/19 021 Inactive clotrimazole-betame thasone 1 %-0.05 % topical cream RxNorm: 174885 Apply to rash on red area on left abdomen/chest Topical BID 08/10/19 21 021 Inactive amlodipine 5 mg tablet RxNorm: 169817 Take 1 Tablet(s) Oral QD 07/31/19 21 Inactive cephalexin 500 mg tablet RxNorm: 493729 Take 1 Tablet(s) Oral BID BID - Twice Daily 07/31/19 21 021 Inactive Start 08/01/20 pantoprazole 40 mg tablet,delayed release RxNorm: 896585 Take 1 Tablet(s) Oral QAM every morning 07/08/19 025 Inactive clopidogrel 75 mg tablet RxNorm: 290200 Take 1 Tablet(s) Oral QD 07/08/19 021 Inactive Blood Glucose Test strips RxNorm: Use 1 Test Strip QID at PRN 07/08/19 Inactive E11.42 senna 8.6 mg tablet RxNorm: 771189 Take 1 Tablet(s) Oral QD 07/08/19 025 Inactive Novolog Flexpen U-100 Insulin aspart 100 unit/mL (3 mL) subcutaneous RxNorm: 9995971 Administer per sliding scale Milliliter(s) Subcutaneous TID 151-200: 10 u; 201-250: 20 u; 251-300: 30 u; 301-350: 40 u; 351-400: 50 u. 07/08/19 022 Inactive lisinopril 5 mg tablet RxNorm: 313196 Take 1 Tablet(s) Oral QD 07/08/19 021 Inactive Novolog Flexpen U-100 Insulin aspart 100 unit/mL (3 mL) subcutaneous RxNorm: 1863243 Inject 85 Unit(s) Subcutaneous TID 07/08/19 21 022 Inactive pravastatin 80 mg tablet RxNorm: 533375 Take 1 Tablet(s) Oral QHS every night at bedtime 07/08/19 023 Inactive clotrimazole 1 % topical cream RxNorm: 944288 Apply to bilateral groin areas Topical BID 07/08/19 21 022 Inactive metoprolol succinate ER 200 mg tablet,extended release 24 hr RxNorm: 265954 Take 1 Tablet(s) Oral QD 07/08/19 21 021 Inactive Vitamin D3 25 mcg (1,000 unit) tablet RxNorm: 021797 Take 1 Tablet(s) Oral QD 07/08/19 021 Inactive isosorbide dinitrate 30 mg tablet RxNorm: 979182 Take 1 Tablet(s) Oral QD 07/08/19 021 Inactive carbamazepine 200 mg tablet RxNorm: 284104 Take 1 Tablet(s) Oral BID 07/08/19 025 Inactive Levemir FlexTouch U-100 Insulin 100 unit/mL (3 mL) subcutaneous pen RxNorm: 493044 Inject 140 Unit(s) Subcutaneous BID 07/08/19 021 Inactive torsemide 20 mg tablet RxNorm: 032140 Take 1 Tablet(s) Oral QD 07/08/19 023 Inactive venlafaxine 75 mg tablet RxNorm: 964675 Take 1 Tablet(s) Oral QD 07/08/19 021 Inactive acetaminophen 500 mg tablet RxNorm: 874415 Take 1 Tablet(s) Oral TID as needed for headache 06/18/19 021 Inactive acetaminophen 500 mg tablet RxNorm: 276313 Take 1 Tablet(s) Oral TID as needed for headache 06/18/19 021 Inactive Lyrica 100 mg capsule RxNorm: 154672 Take 1 Capsule(s) Oral QHS every night at bedtime 06/11/19 021 Inactive Lyrica 50 mg capsule RxNorm: 454763 Take 1 Capsule(s) Oral QAM every morning 06/10/19 21 021 Inactive hydrocortisone 2.5 % topical cream RxNorm: 396337 Apply to bilateral groin creases Topical BID 05/15/20 20 021 Inactive clotrimazole 1 % topical cream RxNorm: 691812 Apply to bilateral groin areas Topical BID 05/15/20 20 01/12/2 021 Inactive Lyrica 50 mg capsule RxNorm: 766053 Take 1 Capsule(s) Oral QAM every morning 05/14/20 20 Inactive Lyrica 100 mg capsule RxNorm: 105599 Take 1 Capsule(s) Oral QHS every night [...] Inactive Nystop 100,000 unit/gram topical powder RxNorm: 435111 Apply to abd folds, under breasts and L side of groin Topical BID x 14 days, then BID PRN 04/08/20 20 Inactive dx: yeast dermatitis Lyrica 100 mg capsule RxNorm: 504102 Take 1 Capsule(s) Oral QHS every night at bedtime 03/13/20 20 Inactive Lyrica 50 mg capsule RxNorm: 463578 Take 1 Capsule(s) Oral QAM every morning 03/13/20 20 Inactive ketoconazole 2 % shampoo RxNorm: 031954 Apply Topical two times a week with showers 03/11/20 20 024 Inactive cholecalciferol (vitamin D3) 50 mcg (2,000 unit) tablet RxNorm: 356234 Take 1 Tablet(s) Oral QD 03/11/20 20 021 Inactive Zetia 10 mg tablet RxNorm: 385548 Take 1 Tablet(s) Oral QD 03/07/20 021 Inactive Zetia 10 mg tablet RxNorm: 847902 Take 1 Tablet(s) Oral QD 03/07/20 Inactive Lyrica 50 mg capsule RxNorm: 958711 Take 1 Capsule(s) Oral QAM every morning 02/15/20 20 020 Inactive Lyrica 100 mg capsule RxNorm: 391086 Take 1 Capsule(s) Oral QHS every night at bedtime 02/15/20 020 Inactive Lyrica 100 mg capsule RxNorm: 715937 Take 1 Capsule(s) Oral QHS every night at bedtime 02/15/20 Inactive Lyrica 50 mg capsule RxNorm: 325045 Take 1 Capsule(s) Oral QAM every morning 02/15/20 Inactive venlafaxine ER 75 mg capsule,extended release 24 hr RxNorm: 484584 Take 3 Capsule(s) Oral QD 06/12/19 023 Inactive polyethylene glycol 3350 17 gram/dose oral powder RxNorm: 739430 Take 17=1 capful Gram(s) Oral BID as needed mix with 4-8oz of liquid 06/12/19 22 024 Inactive icosapent ethyl 1 gram capsule RxNorm: 4102156 Take 2 Capsule(s) (2 gm) Oral BID with meals 10/07/19 023 Inactive Okay to dispense one 2gm tab if you have that available. Levemir FlexTouch U-100 Insulin 100 unit/mL (3 mL) subcutaneous pen RxNorm: 106966 Inject 80 Unit(s) Subcutaneous BID 07/14/19 23 023 Inactive metoprolol succinate ER 200 mg tablet,extended release 24 hr RxNorm: 014237 Take 1 Tablet(s) Oral QD 08/12/19 025 Inactive loperamide 2 mg capsule RxNorm: 881542 Take 1 Capsule(s) Oral QID as needed 09/06/19 025 Inactive hydralazine 50 mg tablet RxNorm: 199513 Take 1 Tablet(s) Oral QID 08/12/19 23 025 Inactive Soft Touch Lancets RxNorm: miscellaneous 03/04/20 24 025 Inactive Novolog Flexpen U-100 Insulin aspart 100 unit/mL (3 mL) subcutaneous RxNorm: 1781550 Insert 30 Unit(s) Subcutaneous TID with meals [...] CVX: 115 2008 Procedures Procedure Codes Date DSCHRG MED/CURRENT MED MERGE CPT-4: 1111F 11/2024 SYS BP LESS 140 CPT-4: G8752 12/21/2024 CUI BP LESS 90 CPT-4: G8754 12/21/2024 Vital Signs Date Vital 12/21/2024 Blood Pressure 1: 125/67 Code: 8480-6 BMI: 69.2 Code: 15064-5 Heart Rate 1: 79 bpm Code: 8867-4 Height: 5'4 Code: 8302-2 Respiratory Rate: 22 bpm SpO2: 92% Temperature: 37.0 (C) / 98.6 (F) Weight: 403 lbs 5 oz Code: 3141-9 Functional Status Functional / Cognitive [...] Performer Location Location Address Codes Cristiano e ([id number]) Home Visit - Est Pt, moderate Diagnosis: Body mass index [BMI] 60.0-69.9, adult[ICD10: Z68.44] Diagnosis: Hypertensive heart disease without heart failure[ICD10: I11.9] Diagnosis: Hypokalemia[ICD10: E87.6] Diagnosis: Type 2 diabetes mellitus with diabetic polyneuropathy, with long-term current use of insulin[ICD10: E11.42] Diagnosis: History of recent hospitalization[SNOMED: 119902565] Diagnosis: Mixed incontinence[SNOMED: 86214330] Diagnosis: TASHI (obstructive sleep apnea)[SNOMED: 14867785]H[address] [place] [address] [place] [address]RFQ-7: 8031971 Plan of Care Planned Activity Notes Codes Status Date Patient Education: Patient Medication Summary Oufxiiuqv61/07/2025Patient Education: YkugytjdgPpooznffg26/07/2025Referral: [facility] [address] [facility] USReferralNo Records Adafviby97/06/2025ppointment: Harrison Munson WPtel: [address] USF/U008/08/2024ppointment: Harrison Munson WPtel: [address] USF/U007/11/2024Referral: [facility]/Endocrinology WPtel: [address] [facility] [address] [id number] USReferralNo Records Qfenwcju81/24/2025ppointment: Dianne Munsonzie WPtel: [address] [facility] [address] [id number] USAWV02/08/2024ppointment: Harrison Munson WPtel: [address] [facility] 300 [id number] USF/U001/11/2024ppointment: Sandra Clark WPtel: [address] [facility] 300 [id number] [facility] Psych Follow Up12/09/2022ppointment: Tapan Shirley WPtel: [address] [place] [address] 300 [id number] USTCM10/26/2022Referral: [facility] WPtel: [address], [address] [id number] USReferralRecords Objdbjxb01/08/2023ppointment: Tapan Shirley WPtel: [address] [facility] [address] [id number] USF/U008/11/2022ppointment: Tapan Shirley WPtel: [address] [facility] 300 [id number] USF/U007/14/2022ppointment: Tapan Shirley WPtel: [address] [facility] 300 [id number] USF/U002/10/2022eferral: [facility] WPtel: [address] AhatsLF[address] IZEyacyqltAcyyzmigw27/12/2022Referral: General CardiologyReferralCompleted 1Referral: General PsychologistReferralClosedReferral: General PsychiatristReferralPatient/Family Scheduling AppointmentReferral: [facility] WPtel: [phone] USReferralFacility Scheduling AppointmentReferral: General Physical Medicine [...] Sister Jyotsna involved in his care cell# [phone] Guardian: Giulia (tapan met in person 09/01/21), [...] - next visit will order K recheck 6.: Potassium recheck 4.0. 8.: BMP K 4.0, Na 138, Creatinine 1.35H, eGFR 58L, BUN 24.9H. Ca 9.0. BG 363H. A1c 7.9H. Colon & Rectal Surgery visit scheduled for 06.19.2023 with Matilde Pérez PA-C. Endocrinology appointment 05.26.2024 with Jessa Webster MD at [facility]. Start Pioglitazone 15 mg QD. Stop Basaglar insulin. Increase Ozempic 2 mg once wkly. Continue Humalin R U-500 100 units with meals TID. FOLLOW UP 2 MONTHS. If BG >400 add 50 units to next scheduled dose of Humalin R U 500 insulin 01/08/2025 Body mass index [BMI] 60.0-6 9.9, adult Updated weight obtained from hospital paperwork = 403lbs.?? Leonid does not follow healthy dietary choices or physical activity which impacts his overall healthand co morbidities.?? Mixed incontinence ordering DME - chux today?? Type 2 diabetes mellitus with diabetic polyneuropathy, with long-term current use of insulin Chronic Endocrinology manages insulin orders now PCP follows up monthly on DM management due to high risk medication use and the need for continued education and encouragement of management.?? Hospital MI provider changed DM management - nursing notified endocrinology.?? Endocrine FU 12.28.2024 PCP will order A1c for follow up today as he missed NOVEMBER visit due to hosptialization?? Continue current DM medication regimen. TASHI (obstructive sleep apnea) Leonid reports last sleep study 10 years ago Wasn't wearing CPAP although since hospitalization has been?? Needs re evaluation at sleep clinic - will place referral.?? History of recent hospitalization 12.11.2024-12.15.2024?? SOB/CP No evidence of NC Med change at MI - insulin management FU recommended - BMP lab work?? Will order labs today?? Hypertensive heart disease without heart failure Chronic Hospitalzation for shortness of breath and chest pain recently No changes to HTN management Nitro did not relieve chest pain SOB/CP likely multifactorial with weight, history of CAD, and pulmonary status.?? On multiple antihypertensives Will FU on BMP orders today.?? Hypokalemia Chronic Supplementation in place 4.0 in OCTOBER Missed NOVEMBER visit due to hosptialization Will order FU BMP today??.12/21/2024
--- OUTSIDE RECORDS SUMMARY | 2025-01-30 21:13 | XMS_ITS | CCD ---
Author Name Cecilio Durham Address [address] [address] [place] [address] Phone Organization [facility] Phone Care Team Providers Care Geologic Technician Name Role Phone Harrison Durham Primary Care Provider Leona vailable Unavailable Chronic Care Management Unavaila ble Summary Purpose DataExchange Insurance Providers Payer name Policy type / Coverage type Covered democrat ID Effective Begin Date Effective End Date [place] Part B [id number] Unknown Unknown [place] Part B [id number] Unknown Unknown Family history Sister Brittany Suggs [...] on file 07/11/[address]: 099389772 Never smoker 01/16 Sexually Active? Unknown No [...] Unknown Snf 09/03/[address]: 113776128 No Alcohol Consum ption 09/02/2020 Allergies, Adverse Reactions, Alerts Substance Reaction Codes Entered Date Inactivated Date Status * NO KNOWN FOOD ALLERGIES Uckvago2307/13/2023No Inactive DateActiveLISINOPRILRxNorm: 2976562No Inactive DateActiveMetformin NJaJejrtiy34/28/2020No Inactive DateActive* NO KNOWN ENVIRONMENTAL FLXYCUKOIDagtnqg87/27/2024No Inactive DateActive Problems Condition Codes Effective Dates Condition St atus Body mass index [BMI] 60.0-69.9, adult I CD-10: Z68.44 ICD-9: V85.4408/5ActiveHistory of recent hospitalizationSNOMED CT: 914369785 ICD-10: Z92.89 ICD-9: V13.9085ActiveHypertensive heart disease without heart failureICD- 10: I11.9 ICD-9: 402.900/5ActiveHypokalemiaICD-10: E87.6 ICD-9: 276.8085ActiveMixed incontinenceSNOMED CT: 00658372 ICD-10: N39.46 ICD-9: 788.33085ActiveOSA (obstructive sleep apnea)SNOMED CT: 33372519 ICD-10: G47.33 ICD-9: 327.2308/5ActiveType 2 diabetes mellitus [...] mellitus with diabetic chronic kidney diseaseSNOMED CT: 752155453604 ICD-10: E11.22 ICD-9: 250.4005/5ActivePressure ulcer of left calf, unstageableICD-10: L89.890 ICD-9: 707.0905ResolvedDiabetic neuropathy associated with type 2 diabetes mellitusICD-10: E11.40 ICD-9: 250.6002/5ActiveHemorrhoidsICD-10: K64.9 ICD-9: 455.602/5ActivePVD (peripheral vascular disease)ICD-10: I73.9 ICD-9: 443.902/5ActiveHyperlipidemia associated with type 2 diabetes mellitusICD-10: E11.69 ICD-9: 250.8001/5ActiveAdvance care planningICD-10: Z71.89 ICD-9: V65.4912/4ActiveLow back painICD-10: M54.50 ICD-9: 724.210/4ActivePhysical deconditioningICD-10: R53.81 ICD-9: 799.310/ctiveAdvanced care planning - to document end of life [id number] physical examICD-10: Z00.00 ICD-9: V70.009ctiveHistory of anemia due to CKDICD-10: N18.9 ICD-9: 585.909/ctiveHx of deep venous thrombosisICD-10: Z86.718 ICD-9: V12.5109/ctiveLearning disabilityICD-10: F81.9 ICD-9: 315.209/ctiveReducible umbilical herniaICD-10: K42.9 ICD-9: 553.109/ctiveVitamin D deficiencyICD-10: E55.9 ICD-9: 268.909/ctiveCallus of heelICD-10: L84 ICD-9: 70151/esolvedGout due to renal impairmentICD-10: M10.30 ICD-9: 274.1005esolvedHyperhidrosis [...] ICD-9: 701.904esolvedCoronary artery disease involving [place] coronary artery of [place] heart, angina presence unspecifiedICD-10: I25.10 ICD-9: 414.0102/4ActiveInappropriate sexual behaviorICD-10: Z72.89 ICD-9: 312.8910ctivePre-op evaluationICD-10: Z01.818 ICD-9: V72.8403/ctiveSecondary hypertensionICD-10: I15.9 ICD-9: 405.9903ctiveDepressionICD-10: F32.9 ICD-9: 000972ResolvedDVT (deep venous thrombosis)ICD-10: I82.409 ICD-9: 453.4009esolvedEncounter for [...] to other viral communicable diseasesICD-10: Z20.828 ICD-9: V01.79022385AvalzfvnXvttovuuHsjdbgt64/28/2020ActiveDiabetes mellitus Type 7Uqvgwmc17/28/2020ActiveAnemia in chronic kidney diseaseICD-10: D63.1 02/12/2020ResolvedHyperlipidemia, unspecifiedICD-10: E78.Resolved Medications Medication Codes Instructions Start Date Stop Date Status Fill Instructions Culturelle 10 billion cell capsule RxNorm: 338474 Take 1 Capsule(s) Oral QD 11/08/19 25 026 Active Culturelle 10 billion cell capsule RxNorm: 529731 Take 1 Capsule(s) Oral QD 11/08/19 25 025 Inactive hydrocodone 5 mg-acetaminophen 325 mg tablet RxNorm: 324609 Take 1 Tablet(s) Oral Q4H every four hours as needed for pain PRN for severe acute dental pain 10/21/19 25 025 Inactive penicillin V potassium 500 mg tablet RxNorm: 653712 Take 1 Tablet(s) Oral QID Take until dental appointment per ER recommendation 10/21/19 25 025 Inactive hydrocodone 5 mg-acetaminophen 325 mg tablet RxNorm: 235546 Take 1 Tablet(s) Oral Q4H every four hours as needed for pain PRN for severe acute dental pain 10/21/19 25 025 Inactive penicillin V potassium 500 mg tablet RxNorm: 119659 Take 1 Tablet(s) Oral QID Take until dental appointment per ER recommendation 10/21/19 25 025 Inactive potassium chloride ER 20 mEq tablet,extended release RxNorm: 472388 Take 2 Tablet(s) Oral TID (dx: hypokalemia) 09/14/19 25 026 Active potassium chloride ER 20 mEq tablet,extended release RxNorm: 747819 Take 2 Tablet(s) Oral TID (dx: hypokalemia) 09/14/19 25 025 Inactive loperamide 2 mg tablet RxNorm: 909516 Take 2 Tablet(s) Oral UD as directed [...] Date Active senna 8.6 mg tablet RxNorm: 701233 Take 1 Tablet(s) Oral QD as needed and 1 tab BID prn 09/06/19 No Stop Date Active cyclobenzaprine 10 mg tablet RxNorm: 449220 Take 1 Tablet(s) Oral QHS every night at bedtime as needed 09/06/19 No Stop Date Active loperamide 2 mg tablet RxNorm: 296702 Take 2 Tablet(s) Oral UD as directed as needed 2 tabs after first loose stool then 1 tab after each subsequent stool PRN Do not exceed 4 doses in 24 hours. Do not administer until after 3 loose stools. 09/06/19 25 026 Active pioglitazone 15 mg tablet RxNorm: 079399 Take 1 Tablet(s) Oral QD 09/06/19 No Stop Date Active loperamide 2 mg tablet RxNorm: 087214 Take 2 Tablet(s) Oral UD as directed as needed 2 tabs after first loose stool then 1 tab after each subsequent stool PRN Do not exceed 4 doses in 24 hours. Do not administer until after 3 loose stools. 09/06/19 25 025 Inactive pregabalin 100 mg capsule RxNorm: 798648 1 CAPSULE BY MOUTH EVERY MORNING (DX: NEUROPATHY) 08/23/19 25 025 Active FACILITY IS REQUESTING REFILL. PRIOR RX HAS BEEN EXHAUSTED. THANK YOU. pregabalin 150 mg capsule RxNorm: 463086 1 CAPSULE BY MOUTH AT BEDTIME (DX: NEUROPATHY) 08/21/19 25 025 Inactive FACILITY IS REQUESTING A REFILL OF THIS MEDICATION, THANK YOU! senna 8.6 mg tablet RxNorm: 499699 Take 1 Tablet(s) Oral QD as needed for constipation on day 2 of no bowel movement 08/09/19 25 025 Inactive Miralax 17 gram/dose oral powder RxNorm: 266823 Administer 17 Gram(s) Oral QD as needed for constipation on day 3 of no bowel movement 08/09/19 25 025 Inactive senna 8.6 mg tablet RxNorm: 610161 Take 1 Tablet(s) Oral QD as needed for constipation on day 2 of no bowel movement 08/09/19 25 025 Inactive Miralax 17 gram/dose oral powder RxNorm: 183653 Administer 17 Gram(s) Oral QD as needed for constipation on day 3 of no bowel movement 08/09/19 025 Inactive pregabalin 100 mg capsule RxNorm: 200195 Take 1 Capsule(s) Oral QAM every morning [...] (Concentrated) Insulin 500 unit/mL subcutaneous soln RxNorm: 464111 Inject 100 Unit(s) Subcutaneous AC before meals Three times daily before meals. 07/24/19 25 025 Inactive ammonium lactate 12 % topical cream RxNorm: 881372 Apply 1 Application Topical BID 07/20/19 No Stop Date Active ezetimibe 10 mg tablet RxNorm: 356666 Take 1 Tablet(s) Oral QD 07/18/19 No Stop Date Active senna 8.6 mg tablet RxNorm: 532591 Take 1 Tablet(s) Oral QD 07/18/19 25 025 Inactive metoprolol succinate ER 200 mg tablet,extended release 24 hr RxNorm: 888358 Take 1 Tablet(s) Oral QD 06/19/19 No Stop Date Active pantoprazole 40 mg tablet,delayed release RxNorm: 158330 Take 1 Tablet(s) Oral QAM every morning 02/03/20 25 No Stop Date Active hydralazine 50 mg tablet RxNorm: 372786 Take 1 Tablet(s) Oral QID 06/19/19 25 No Stop Date Active carbamazepine 200 mg tablet RxNorm: 965082 Take 1 Tablet(s) Oral BID 06/19/19 25 No Stop Date Active amlodipine 10 mg tablet RxNorm: 765818 Take 1 Tablet(s) Oral QD 06/19/19 25 No Stop Date Active Eliquis 5 mg tablet RxNorm: 7958676 Take 1 Tablet(s) Oral BID 06/19/19 25 No Stop Date Active pen needle, diabetic 30 gauge x 3/16 RxNorm: Use 1 6 times per day w/insulin 06/14/19 25 026 Active pen needle, diabetic 30 gauge x 3/16 RxNorm: Use 1 needle 6 times per day w/insulin 06/14/19 25 025 Inactive nystatin 100,000 unit/gram topical powder RxNorm: 098748 Apply 1 Application Topical BID as needed abdominal/breast/ groin folds 05/24/19 25 026 Active pregabalin 100 mg capsule RxNorm: 804662 Take 1 Capsule(s) Oral QAM every morning 05/22/19 25 025 Inactive nystatin 100,000 unit/gram topical powder RxNorm: 806420 Apply 1 Application Topical BID as needed abdominal/breast/ groin folds 04/11/20 24 024 Inactive chlorthalidone 25 mg tablet RxNorm: 697248 Take 1 Tablet(s) Oral QAM every morning 04/06/20 24 No Stop Date Active pregabalin 150 mg capsule RxNorm: 381064 Take 1 Capsule(s) Oral QHS every night at bedtime 03/31/20 24 024 Inactive Vascepa 1 gram capsule RxNorm: 6213118 Take 2 Capsule(s) Oral BID 03/30/20 24 025 Active rosuvastatin 40 mg tablet RxNorm: 007797 1 TAB ORALLY EVERY EVENING (DX:CORONARY ARTERY DISEASE) 03/28/20 24 No Stop Date Active venlafaxine ER 75 mg capsule,extended release 24 hr RxNorm: 667333 3 CAPS (225MG) ORALLY DAILY (DX: MOOD DISORDER) 03/28/20 No Stop Date Active pregabalin 100 mg capsule RxNorm: 915186 Take 1 Capsule(s) Oral QAM every morning 03/20/20 Inactive cholecalciferol (vitamin D3) 1,250 mcg (50,000 unit) capsule RxNorm: 456429 Take 1 Capsule(s) Oral QW once a [...] Insulin 100 unit/mL (3 mL) subcutaneous RxNorm: 6546674 Inject 40 Unit(s) Subcutaneous BID 03/07/20 025 Inactive Please dispense one month supply. Humulin R U-500 (Concentrated) Insulin 500 unit/mL subcutaneous soln RxNorm: 988927 Inject 100 Unit(s) Subcutaneous AC before meals [...] PRN) to be use with new Accu [place] meter 03/04/20 Inactive ok to substitute with any covered alternative test strip FreeStyle Chema 2 Sensor kit RxNorm: Use UD as directed 03/02/20 Inactive Pen Needle 30 gauge x 516 RxNorm: Pen(s) Use 1 needle as directed TID 03/02/20 Inactive nystatin 100,000 unit/gram topical powder RxNorm: 083190 Apply 1 Application Topical BID as needed [...] (Concentrated) Insulin 500 unit/mL subcutaneous soln RxNorm: 455636 Inject 100 Unit(s) Subcutaneous TID 02/17/20 24 024 Inactive Humulin R U-500 (Concentrated) Insulin 500 unit/mL subcutaneous soln RxNorm: 638599 Inject 100 Unit(s) Subcutaneous TID 02/10/20 24 024 Inactive Basaglar KwikPen U-100 Insulin 100 unit/mL (3 mL) subcutaneous RxNorm: 2627413 Inject 30 Unit(s) Subcutaneous BID 02/10/20 24 024 Inactive Please dispense one month supply. pregabalin 100 mg capsule RxNorm: 672228 Take 1 Capsule(s) Oral QAM every morning 02/07/20 24 024 Inactive isosorbide mononitrate ER 60 mg tablet,extended release 24 hr RxNorm: 312285 Take 1 Tablet(s) Oral QD 02/01/20 24 Inactive aripiprazole 15 mg tablet RxNorm: 938270 Take 1/2 Tablet(s) Oral QD 02/01/20 24 025 Inactive torsemide 20 mg tablet RxNorm: 668069 1 TAB ORALLY DAILY (DX: EDEMA) 01/27/20 No Stop Date Active potassium chloride ER 20 mEq tablet,extended release(part/cryst) RxNorm: 6894385 2 TABS (40MEQ) ORALLY TWICE DAILY (DX: HYPOKALEMIA) 01/27/20 24 025 Inactive cephalexin 500 mg capsule RxNorm: 092935 Take 1 Capsule(s) Oral QID 12/17/19 24 024 Inactive cephalexin 500 mg capsule RxNorm: 106916 Take 1 Capsule(s) Oral QID 12/17/19 24 024 Inactive acetaminophen 500 mg tablet RxNorm: 035337 (MAX APAP:4GM/24HR) Take 1 Tablet(s) Oral TID as needed for pain 12/10/19 24 024 Inactive torsemide 20 mg tablet RxNorm: 531923 Take 1 Tablet(s) Oral QD 10/26/19 24 024 Inactive potassium chloride ER 20 mEq tablet,extended release RxNorm: 19800522 Take 2 Tablet(s) Oral BID 10/26/19 24 024 Inactive torsemide 20 mg tablet RxNorm: 597640 Take 1 Tablet(s) Oral QD 10/26/19 24 Inactive potassium chloride ER 20 mEq tablet,extended release RxNorm: 19800522 Take 2 Tablet(s) Oral BID 10/26/19 24 Inactive Artificial Tears (PF) 0.1 %-0.3 % drops in a dropperette RxNorm: 155716 Apply 1-2 Drop(s) Both eyes BID as needed 09/28/19 24 Inactive erythromycin 5 mg/gram (0.5 %) eye ointment RxNorm: 537457 Apply 1 Application Both eyes QHS every night at bedtime Instill ~1 cm ribbon into affected eye 09/28/19 24 024 Inactive Artificial Tears (PF) 0.1 %-0.3 % drops in a dropperette RxNorm: 740037 Apply 1-2 Drop(s) Both eyes BID as needed 09/28/19 24 Inactive erythromycin 5 mg/gram (0.5 %) eye ointment RxNorm: 373801 Apply 1 Application Both eyes QHS every night at bedtime Instill ~1 cm ribbon into affected eye 09/28/19 24 Inactive acetaminophen 500 mg tablet RxNorm: 753688 (MAX APAP:4GM/24HR) Take 1 Tablet(s) Oral TID as needed for pain 09/24/19 24 Inactive carvedilol 25 mg tablet RxNorm: 984495 Take 1 Tablet(s) Oral QD 09/08/19 24 No Stop Date Active pregabalin 100 mg capsule RxNorm: 988816 Take 1 Capsule(s) Oral QAM every morning 09/07/19 24 024 Inactive bisacodyl 10 mg rectal suppository RxNorm: 250255 Insert 1 Suppository Rectal QD as needed 07/13/19 24 No Stop Date Active ketoconazole 2 % shampoo RxNorm: 020051 Apply 1 Application Topical UD as directed 07/13/19 24 No Stop Date Active Ozempic 1 mg/dose (4 mg/3 mL) subcutaneous pen injector RxNorm: 6067666 Inject 1 Milligram(s) Subcutaneous QW once a week 07/13/19 24 No Stop Date Active Guaifenesin AC 10 mg-100 mg/5 mL oral liquid RxNorm: 249246 Take 10 Milliliter(s) Oral Q4H every four hours as needed 07/13/19 24 No Stop Date Active hydrocortisone 2.5 % topical cream RxNorm: 874342 Apply 1 Application Topical BID as needed 07/13/19 24 No Stop Date Active rosuvastatin 40 mg tablet RxNorm: 768652 Take 1 Tablet(s) Oral QPM every evening 07/13/19 24 024 Inactive ezetimibe 10 mg tablet RxNorm: 471042 Take 1 Tablet(s) Oral QD 07/13/19 24 025 Inactive polyethylene glycol 3350 17 gram/dose oral powder RxNorm: 598086 Take 17 Gram(s) Oral BID as needed mix in 4-8ox water 07/13/19 24 025 Inactive aripiprazole 15 mg tablet RxNorm: 376128 Take 1/2 Tablet(s) Oral QD 07/13/19 24 024 Inactive isosorbide mononitrate ER 60 mg tablet,extended release 24 hr RxNorm: 384606 Take 1 Tablet(s) Oral QD 07/13/19 24 024 Inactive ammonium lactate 12 % topical cream RxNorm: 063979 Apply 1 Application Topical BID 07/13/19 24 025 Inactive rosuvastatin 20 mg sprinkle capsule RxNorm: 6093862 Take 1 Capsule(s) Oral QD 07/13/19 24 025 Inactive Vascepa 1 gram capsule RxNorm: 5031368 Take 2 Capsule(s) Oral BID 07/13/19 24 024 Inactive venlafaxine ER 75 mg capsule,extended release 24 hr RxNorm: 182853 Take 3 Capsule(s) Oral QD 07/13/19 24 024 Inactive Basaglar KwikPen U-100 Insulin 100 unit/mL (3 mL) subcutaneous RxNorm: 1753665 Inject 30U SubQ twice daily 07/07/19 24 024 Inactive Please dispense one month supply. Basaglar KwikPen U-100 Insulin 100 unit/mL (3 mL) subcutaneous RxNorm: 0329693 Inject 30U SubQ twice daily 07/07/19 24 024 Inactive Please dispense one month supply. pregabalin 150 mg capsule RxNorm: 623518 Take 1 Capsule(s) Oral QHS every night at bedtime 07/05/19 24 024 Inactive pregabalin 150 mg capsule RxNorm: 136368 Take 1 Capsule(s) Oral QHS every night at bedtime 07/05/19 24 024 Inactive polyethylene glycol 3350 17 gram/dose oral powder RxNorm: 893490 Take 1 Packet Oral QD as needed (1 packet = 17g) mix with 4-8oz of liquid 06/15/19 024 Inactive bisacodyl 10 mg rectal suppository RxNorm: 137471 Insert one suppository per rectum once daily as needed for constipation 06/15/19 024 Inactive bisacodyl 10 mg rectal suppository RxNorm: 872490 Insert one suppository per rectum once daily as needed for constipation 06/15/19 024 Inactive pregabalin 100 mg capsule RxNorm: 904013 Take 1 Capsule(s) Oral QAM every morning 04/27/20 024 Inactive Levemir FlexPen 100 unit/mL (3 mL) solution subcutaneous insulin pen RxNorm: 091412 Inject 30 Unit(s) Subcutaneous BID 04/27/20 024 Inactive rosuvastatin 40 mg tablet RxNorm: 858381 Take 1 Tablet(s) Oral QPM every evening 04/16/20 024 Inactive D/C rosuvastatin 20mg venlafaxine ER 75 mg capsule,extended release 24 hr RxNorm: 985619 Take 3 Capsule(s) Oral QD 04/14/20 023 Inactive pregabalin 100 mg capsule RxNorm: 273819 Take 1 Capsule(s) Oral QAM every morning [...] strip clotrimazole 1 % topical cream RxNorm: 981423 Take apply topically to abdominal folds twice daily for 14 days 03/12/20 024 Inactive Ozempic 1 mg/dose (4 mg/3 mL) subcutaneous pen injector RxNorm: 2992322 Inject 1 Milligram(s) Subcutaneous QW once a week 03/11/20 023 Inactive rosuvastatin 20 mg tablet RxNorm: 995553 Take 1 Tablet(s) Oral QD 02/26/20 23 023 Inactive d/c pravastatin 80mg Ozempic 1 mg/dose (4 mg/3 mL) subcutaneous pen injector RxNorm: 7090971 Inject 1 Milligram(s) Subcutaneous QW once a week 02/20/20 23 023 Inactive pregabalin 150 mg capsule RxNorm: 193116 Take 1 Capsule(s) Oral HS at bed time 02/19/20 23 023 Inactive pregabalin 100 mg capsule RxNorm: 463273 Take 1 Capsule(s) Oral QAM every morning 02/18/20 23 023 Inactive venlafaxine ER 75 mg capsule,extended release 24 hr RxNorm: 118258 Take 3 Capsule(s) Oral QD 02/04/20 23 023 Inactive FreeStyle Chema 2 Sensor kit RxNorm: use as directed 02/04/20 23 023 Inactive FreeStyle Chema 2 Sensor kit RxNorm: use as directed 02/04/20 23 024 Inactive fluconazole 150 mg tablet RxNorm: 152235 Take 1 Tablet(s) Oral on day 3 and on day 6 02/03/20 024 Inactive venlafaxine ER 150 mg capsule,extended release 24 hr RxNorm: 146255 Take 1 Capsule(s) Oral QD 02/03/20 23 023 Inactive chlorthalidone 25 mg tablet RxNorm: 986634 Take 1 Tablet(s) Oral QAM every morning 02/03/20 23 024 Inactive acetaminophen 500 mg tablet RxNorm: 203909 1 TABLET ORALLY 3 TIMES DAILY (MAX APAP:4GM/24HR) 12/15/19 23 023 Inactive potassium chloride ER 20 mEq tablet,extended release RxNorm: 575304 Take 1 Tablet(s) Oral BID 12/09/19 23 024 Inactive d/c 20mEq once daily (sent from hospital) clotrimazole 1 % topical cream RxNorm: 279148 apply 1g topically to top of feet and in between toes BID 12/09/19 23 025 Inactive nystatin 100,000 unit/gram topical powder RxNorm: 802486 APPLY TO AFFECTED AREAS TOPICALLY 2 TIMES DAILY 11/21/19 23 023 Inactive Nystop 100,000 unit/gram topical powder RxNorm: 994559 Apply to abd folds, under breasts and L side of groin Topical BID x 14 days, then BID PRN 11/20/19 023 Inactive dx: yeast dermatitis [place] Ultra Strength 4 %-30 %-10 % topical cream RxNorm: 521933 Apply 1 Gram(s) Topical QID PRN to feet and legs for neuropathic pain 11/11/19 024 Inactive clotrimazole 1 % topical cream RxNorm: 173251 Apply 1/2 Gram(s) Topical BID Apply to affected areas of groin, periarea, and abdominal topically 2 times daily 11/10/19 025 Inactive hydrocortisone 2.5 % topical cream RxNorm: 748890 Apply 1/2 Gram(s) Topical BID as needed 11/10/19 024 Inactive Levemir FlexPen 100 unit/mL (3 mL) solution subcutaneous insulin pen RxNorm: 645036 Inject 30 Unit(s) Subcutaneous BID 10/07/19 23 023 Inactive Humulin R U-500 (Concentrated) Insulin 500 unit/mL subcutaneous soln RxNorm: 531242 Inject 100 Unit(s) Subcutaneous TID 10/07/19 024 Inactive Ozempic 0.25 mg or 0.5 mg (2 mg/3 mL) subcutaneous pen injector RxNorm: 8647552 Inject 1/2 Milligram(s) Subcutaneous QW once a week 10/07/19 024 Inactive aripiprazole 15 mg tablet RxNorm: 604235 1/2 TAB (7.5MG) ORALLY DAILY (DX:MAJOR DEPRESSIVE DISORDER) 09/23/19 023 Inactive Accu-Chek Guide test strips RxNorm: Use 1 Test Strip QID 09/15/19 23 023 Inactive ok to substitute with any covered alternative test strip Lancets,Thin 28 gauge RxNorm: Use 1 as directed QID 09/15/19 23 023 Inactive torsemide 20 mg tablet RxNorm: 868571 Take 1 Tablet(s) Oral BID 09/09/19 23 024 Inactive d/c once daily dosing carvedilol 25 mg tablet RxNorm: 044306 Take 1 Tablet(s) Oral QD 08/25/19 23 024 Inactive pregabalin 150 mg capsule RxNorm: 328054 1 Capsule(s) Oral HS at bed time 08/18/19 23 023 Inactive pregabalin 100 mg capsule RxNorm: 016845 1 Capsule(s) Oral QAM every morning 08/18/19 23 023 Inactive carvedilol 25 mg tablet RxNorm: 372937 1 Tablet(s) Oral QD 07/28/19 23 023 Inactive lisinopril 20 mg tablet RxNorm: 962874 Give 1 Tablet(s) Oral QD 07/28/19 23 023 Inactive Lyrica 150 mg capsule RxNorm: 815900 Take 1 Capsule(s) Oral QHS every night at bedtime 07/19/19 23 023 Inactive d/c 100mg dose Diflucan 150 mg tablet RxNorm: 677467 Take 1 Tablet(s) Oral QD repeat on day 3 and 6 07/19/19 23 023 Inactive pregabalin 100 mg capsule RxNorm: 100218 Take 1 Capsule(s) Oral QAM every morning 07/19/19 23 023 Inactive gatifloxacin 0.5 % eye drops RxNorm: 773342 Instill 1 Drop(s) as directed TID Instill 1 drop in to affected eye(s) starting 1 day prior to surgery and continue until gone (do not exceed 4 weeks). 07/13/19 23 023 Inactive carvedilol 25 mg tablet RxNorm: 104802 2 Tablet(s) Oral BID 07/13/19 23 023 Inactive Humulin R Regular U-100 Insulin 100 unit/mL injection solution RxNorm: 429779 85 Unit(s) Injection TID 07/13/19 23 023 Inactive ketorolac 0.5 % eye drops RxNorm: 649936 Instill 1 Drop(s) as directed QID Instill 1 drop into affected eye(s) 4 times daily starting 1 day prior to surgery and continue until gone (do not exceed 4 weeks). 07/13/19 23 023 Inactive Diflucan 150 mg tablet RxNorm: 155509 Take 1 Tablet(s) Oral QD repeat on day 3 and 6 06/30/19 23 023 Inactive Accu-Chek Guide test strips RxNorm: Use 1 Test Strip QID Use 1 test strip to monitor blood glucose 4 times daily and as needed. Dx:E11.42. 06/23/19 23 023 Inactive ok to substitute with any covered alternative test strip dextromethorphan-gu aifenesin 10 mg-100 mg/5 mL oral liquid RxNorm: 921606 Take 10 Milliliter(s) Oral every 4 hours as needed for cough 06/19/19 023 Inactive dextromethorphan-gu aifenesin 10 mg-100 mg/5 mL oral liquid RxNorm: 367627 Take 10 Milliliter(s) Oral every 4 hours as needed for cough 06/19/19 023 Inactive Lyrica 150 mg capsule RxNorm: 930756 Take 1 Capsule(s) Oral QHS every night at bedtime 06/18/19 23 023 Inactive d/c 100mg dose aripiprazole 15 mg tablet RxNorm: 701268 1/2 TAB (7.5MG) ORALLY DAILY (DX:MAJOR DEPRESSIVE DISORDER) 06/05/19 23 023 Inactive pregabalin 100 mg capsule RxNorm: 562324 1 Capsule(s) Oral QAM every morning 06/02/19 23 023 Inactive Banophen 50 mg capsule RxNorm: 2458090 Take 1 Capsule(s) Oral Q6H every 6 hours as needed 05/19/19 23 No Stop Date Active Novolog Flexpen U-100 Insulin aspart 100 unit/mL (3 mL) subcutaneous RxNorm: 2904243 Inject 10 Unit(s) Subcutaneous QHS every night at bedtime with nighttime snack 04/08/20 22 022 Inactive Novolog Flexpen U-100 Insulin aspart 100 unit/mL (3 mL) subcutaneous RxNorm: 9340241 Inject 42 Unit(s) Subcutaneous TID in addition to sliding scale 04/08/20 022 Inactive d/c 36u albuterol sulfate HFA 90 mcg/actuation aerosol inhaler RxNorm: 5293336 Take 2 Puff(s) Inhalation Q4H every four hours as needed as needed for SOB, cough, or wheezing 04/07/20 030 Active Banophen 50 mg capsule RxNorm: 8807973 Take 1 Capsule(s) Oral Q6H every 6 hours as needed 04/06/20 023 Inactive diphenhydramine 50 mg tablet RxNorm: 7402060 Take 1 Tablet(s) Oral Q6H every 6 hours as needed 04/06/20 022 Inactive diphenhydramine 50 mg tablet RxNorm: 7490910 1 Tablet(s) Oral Q6H every 6 hours as needed 04/06/20 022 Inactive Abilify 15 mg tablet RxNorm: 031044 1/2 Tablet(s) Oral QD 03/10/20 023 Inactive Shingrix (PF) 50 mcg/0.5 mL intramuscular suspension, kit RxNorm: 4061303 Administer 1/2 Milliliter(s) Intramuscular QD one time shingrix step 2 ( step 1 given 11/04/21) WITH needle - Nursing please administer upon arrival and once administered post a bridge message with date of administration, 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, expiration date, and lot# so we can update [facility] 02/18/20 22 022 Inactive dispense with needle Shingrix (PF) 50 mcg/0.5 mL intramuscular suspension, kit RxNorm: 8080786 Administer 1/2 Milliliter(s) Intramuscular QD one time shingrix step 2 ( step 1 given 11/04/21) WITH needle - Nursing please administer upon arrival and once administered post a bridge message with date of administration, 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, expiration date, and lot# so we can update [facility] 02/18/20 22 022 Inactive dispense with needle Lyrica 100 mg capsule RxNorm: 444019 Take 1 Capsule(s) Oral QAM every morning 01/08/20 22 022 Inactive d/c 50mg dose acetaminophen 500 mg tablet RxNorm: 393593 Take 1 Tablet(s) Oral TID 01/08/20 22 022 Inactive d/c PRN order Lyrica 150 mg capsule RxNorm: 154491 Take 1 Capsule(s) Oral QHS every night at bedtime 01/08/20 22 023 Inactive d/c 100mg dose polyethylene glycol 3350 17 gram/dose oral powder RxNorm: 641587 Take 17=1 capful Gram(s) Oral QD mix with 4-8oz of liquid 01/08/20 22 025 Inactive take this in addition to BID prn order Abilify 5 mg tablet RxNorm: 040376 Take 1 Tablet(s) Oral QD take 1 tab po QD #30 refill 5 dx: MDD 12/12/19 22 022 Inactive Abilify 5 mg tablet RxNorm: 898734 Take 1 Tablet(s) Oral QD take 1 tab po QD #30 refill 5 dx: MDD 12/12/19 22 022 Inactive Novolog Flexpen U-100 Insulin aspart 100 unit/mL (3 mL) subcutaneous RxNorm: 9665468 Inject 42 Unit(s) Subcutaneous TID in addition to sliding scale 12/10/19 22 022 Inactive d/c 36u chlorthalidone 25 mg tablet RxNorm: 770922 Take 1 Tablet(s) Oral QAM every morning 12/10/19 22 023 Inactive pregabalin 50 mg capsule RxNorm: 423088 Take 1 Capsule(s) Oral QAM every morning 11/12/19 22 022 Inactive tetanus-diphtheria toxoids-Td 2 Lf unit-2 Lf unit/0.5 mL IM suspension RxNorm: 139 Take 0.5 Miscellaneous Intramuscular 11/12/19 22 022 Inactive need tdap - nursing to administer upon arrival pregabalin 50 mg capsule RxNorm: 528211 Take 1 Capsule(s) Oral QAM every morning 10/16/19 22 022 Inactive pregabalin 50 mg capsule RxNorm: 050869 Take 1 Capsule(s) Oral QAM every morning 10/16/19 22 Inactive pregabalin 50 mg capsule RxNorm: 050744 1 Capsule(s) Oral QAM every morning 10/15/19 22 Inactive Shingrix (PF) 50 mcg/0.5 mL intramuscular suspension, kit RxNorm: 9830866 Administer 1/2 Milliliter(s) Intramuscular one time Nursing please administer upon arrival and once administered post a bridge message with 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, expiration date, and lot# so we can [...] aspart 100 unit/mL (3 mL) subcutaneous RxNorm: 2865296 Inject 10 Unit(s) Subcutaneous QHS every night at bedtime with nighttime snack 10/08/19 22 Inactive Shingrix (PF) 50 mcg/0.5 mL intramuscular suspension, kit RxNorm: 9945050 ADMINISTER 2-DOSE SERIES PER CDC GUIDELINES 10/08/19 22 022 Active Shingrix (PF) 50 mcg/0.5 mL intramuscular suspension, kit RxNorm: 3901846 ADMINISTER 2-DOSE SERIES PER CDC GUIDELINES 10/08/19 22 022 Inactive Novolog Flexpen U-100 Insulin aspart 100 unit/mL (3 mL) subcutaneous RxNorm: 5573977 Inject 36 Unit(s) Subcutaneous TID in addition to sliding scale 10/08/19 022 Inactive cholecalciferol (vitamin D3) 1,250 mcg (50,000 unit) capsule RxNorm: 068927 Take 1 Capsule(s) Oral QW once a week 10/08/19 024 Inactive Novofine Autocover 30 gauge x 1/3 needle RxNorm: Use 1 Miscellaneous UD as directed Use 1 needle as directed to administer insulin 5 times a day Dx:E11.42. 10/03/19 22 022 Inactive ok to substitute with any covered alternative pen needle benzoyl peroxide 10 % topical cleanser RxNorm: 878976 Apply 1 Application Topical QD apply to face, wash rinse and dry once daily (may change to QOD if drying) 08/19/19 22 022 Inactive (%covered by insurance) #60ml refill 11 dx: acne benzoyl peroxide 10 % topical cleanser RxNorm: 013639 Apply 1 Application Topical QD apply to face, wash rinse and dry once daily (may change to QOD if drying) 08/19/19 22 022 Inactive (%covered by insurance) #60ml refill 11 dx: acne benzoyl peroxide 10 % topical cleanser RxNorm: 421300 Apply 1 Application Topical QD apply to face, wash rinse and dry once daily (may change to QOD if drying) 08/19/19 22 022 Inactive (%covered by insurance) #60ml refill 11 dx: acne Lyrica 50 mg capsule RxNorm: 242173 Take 1 Capsule(s) Oral QAM every morning Take 1 capsule by mouth once daily 08/19/19 22 022 Inactive benzoyl peroxide 10 % topical cleanser RxNorm: 281076 Apply 1 Application Topical QD apply to face, wash rinse and dry once daily (may change to QOD if drying) 08/19/19 22 022 Inactive (%covered by insurance) #60ml refill 11 dx: acne Lyrica 100 mg capsule RxNorm: 990629 Take 1 Capsule(s) Oral QHS every night at bedtime Take 1 capsule by mouth once daily at bedtime 08/19/19 22 022 Inactive Lyrica 100 mg capsule RxNorm: 123832 Take 1 Capsule(s) Oral QHS every night at bedtime Take 1 capsule by mouth once daily at bedtime 08/16/19 22 022 Inactive Lyrica 50 mg capsule RxNorm: 479006 Take 1 Capsule(s) Oral QAM every morning Take 1 capsule by mouth once daily 08/16/19 22 022 Inactive Levemir FlexTouch U-100 Insulin 100 unit/mL (3 mL) subcutaneous pen RxNorm: 577300 Inject 86 Unit(s) Subcutaneous BID 08/05/19 22 022 Inactive d/c 83units BID Lyrica 100 mg capsule RxNorm: 701556 Take 1 Capsule(s) Oral QHS every night at bedtime Take 1 capsule by mouth once daily at bedtime 07/14/19 22 022 Inactive Lyrica 50 mg capsule RxNorm: 585184 Take 1 Capsule(s) Oral QAM every morning Take 1 capsule by mouth once daily 07/14/19 22 022 Inactive Levemir FlexTouch U-100 Insulin 100 unit/mL (3 mL) subcutaneous pen RxNorm: 486026 Inject 83 Unit(s) Subcutaneous BID 07/08/19 22 [...] test strip hydralazine 50 mg tablet RxNorm: 071292 Take 1 Tablet(s) Oral QID 05/05/20 21 022 Inactive venlafaxine ER 225 mg tablet,extended release 24 hr RxNorm: 994074 Take 1 Tablet(s) Oral QD 05/05/20 21 021 Inactive venlafaxine ER 225 mg tablet,extended release 24 hr RxNorm: 915318 Take 1 Tablet(s) Oral QD 05/05/20 21 022 Inactive isosorbide mononitrate ER 30 mg tablet,extended release 24 hr RxNorm: 648517 Take 1 Tablet(s) Oral QD 05/05/20 21 024 Inactive hydralazine 50 mg tablet RxNorm: 208011 Take 1 Tablet(s) Oral QID 05/05/20 21 021 Inactive aspirin 81 mg tablet,delayed release RxNorm: 633070 Take 1 Tablet(s) Oral QD 03/31/20 21 022 Inactive Vitamin D2 1,250 mcg (50,000 unit) capsule RxNorm: 8860934 Take 1 Capsule(s) Oral QW once a week x 12 weeks 03/31/20 022 Inactive Vitamin D2 1,250 mcg (50,000 unit) capsule RxNorm: 3458489 Take 1 Capsule(s) Oral QW once a week 03/31/20 021 Inactive Zetia 10 mg tablet RxNorm: 687036 Take 1 Tablet(s) Oral QD 03/31/20 024 Inactive Zetia 10 mg tablet RxNorm: 438146 Take 1 Tablet(s) Oral QD 03/31/20 021 Inactive hydralazine 25 mg tablet RxNorm: 967532 Take 1 Tablet(s) Oral QID 03/31/20 021 Inactive hydralazine 25 mg tablet RxNorm: 781019 Take 1 Tablet(s) Oral QID 03/31/20 021 Inactive hydralazine 10 mg tablet RxNorm: 936796 Take 1 Tablet(s) Oral QID 03/03/20 021 Inactive cephalexin 500 mg tablet RxNorm: 674789 Take 1 Tablet(s) Oral QID 02/27/20 021 Inactive cephalexin 500 mg tablet RxNorm: 299277 Take 1 Tablet(s) Oral QID 02/27/20 021 Inactive lisinopril 40 mg tablet RxNorm: 835080 Take 1 Tablet(s) Oral QD 02/11/20 023 Inactive Eliquis 5 mg tablet RxNorm: 6018998 Take 1 Tablet(s) Oral BID 01/05/20 21 025 Inactive Eliquis 5 mg tablet RxNorm: 5992679 Take 2 Tablet(s) Oral QD 01/01/20 21 021 Inactive Lyrica 50 mg capsule RxNorm: 868534 Take 1 Capsule(s) Oral QAM every morning 12/24/19 21 021 Inactive Lyrica 100 mg capsule RxNorm: 805653 Take 1 Capsule(s) Oral QHS every night at bedtime 12/24/19 21 021 Inactive clotrimazole 1 % topical cream RxNorm: 948967 Apply to right foot and toes Topical BID 12/04/19 21 023 Inactive metoprolol succinate ER 200 mg tablet,extended release 24 hr RxNorm: 712431 Take 1 Tablet(s) Oral QD 07/20/ 023 Inactive ciprofloxacin 500 mg tablet RxNorm: 182263 Take 1 Tablet(s) Oral QD 11/30/19 21 021 Inactive DX ofloxacin otic drops Accu-Chek Guide test strips RxNorm: USE 1 TO CHECK GLUCOSE 4 TIMES DAILY AND NEEDED 11/15/19 21 023 Inactive Blood Glucose Test strips RxNorm: Use 1 Test Strip QID at PRN 11/05/19 21 023 Inactive E11.42 lisinopril 30 mg tablet RxNorm: 516799 Take 1 Tablet(s) Oral QD 10/30/19 021 Inactive lisinopril 20 mg tablet RxNorm: 483707 Take 1 Tablet(s) Oral QD 10/23/19 21 021 Inactive lisinopril 20 mg tablet RxNorm: 214651 Take 1 Tablet(s) Oral QD 10/23/19 21 021 Inactive lisinopril 10 mg tablet RxNorm: 122216 Take 1 Tablet(s) Oral QD 10/02/19 21 021 Inactive icosapent ethyl 1 gram capsule RxNorm: 6353072 Take 2 Capsule(s) (2 gm) Oral BID with meals 09/12/19 024 Inactive Okay to dispense one 2gm tab if you have that available. icosapent ethyl 1 gram capsule RxNorm: 1149106 Take 2 Capsule(s) Oral BID 09/12/19 21 021 Inactive Okay to dispense one 2gm tab if you have that available. amlodipine 10 mg tablet RxNorm: 464847 Take 1 Tablet(s) Oral QD 09/04/19 21 021 Inactive aspirin 81 mg tablet,delayed release RxNorm: 969821 Take 1 Tablet(s) Oral QD 09/04/19 21 021 Inactive Levemir FlexTouch U-100 Insulin 100 unit/mL (3 mL) subcutaneous pen RxNorm: 220386 Inject 150 Unit(s) Subcutaneous BID 09/04/19 21 022 Inactive venlafaxine ER 150 mg tablet,extended release 24 hr RxNorm: 100066 Take 1 Tablet(s) Oral QD 09/04/19 021 Inactive clotrimazole-betame thasone 1 %-0.05 % topical cream RxNorm: 733724 Apply to rash on red area on left abdomen/chest Topical BID 08/10/19 21 021 Inactive amlodipine 5 mg tablet RxNorm: 075254 Take 1 Tablet(s) Oral QD 07/31/19 21 Inactive cephalexin 500 mg tablet RxNorm: 718730 Take 1 Tablet(s) Oral BID BID - Twice Daily 07/31/19 21 021 Inactive Start 08/01/20 pantoprazole 40 mg tablet,delayed release RxNorm: 949823 Take 1 Tablet(s) Oral QAM every morning 07/08/19 025 Inactive clopidogrel 75 mg tablet RxNorm: 005280 Take 1 Tablet(s) Oral QD 07/08/19 021 Inactive Blood Glucose Test strips RxNorm: Use 1 Test Strip QID at PRN 07/08/19 Inactive E11.42 senna 8.6 mg tablet RxNorm: 142886 Take 1 Tablet(s) Oral QD 07/08/19 025 Inactive Novolog Flexpen U-100 Insulin aspart 100 unit/mL (3 mL) subcutaneous RxNorm: 8639811 Administer per sliding scale Milliliter(s) Subcutaneous TID 151-200: 10 u; 201-250: 20 u; 251-300: 30 u; 301-350: 40 u; 351-400: 50 u. 07/08/19 022 Inactive lisinopril 5 mg tablet RxNorm: 048680 Take 1 Tablet(s) Oral QD 07/08/19 021 Inactive Novolog Flexpen U-100 Insulin aspart 100 unit/mL (3 mL) subcutaneous RxNorm: 0859053 Inject 85 Unit(s) Subcutaneous TID 07/08/19 21 022 Inactive pravastatin 80 mg tablet RxNorm: 539336 Take 1 Tablet(s) Oral QHS every night at bedtime 07/08/19 023 Inactive clotrimazole 1 % topical cream RxNorm: 335405 Apply to bilateral groin areas Topical BID 07/08/19 21 022 Inactive metoprolol succinate ER 200 mg tablet,extended release 24 hr RxNorm: 355747 Take 1 Tablet(s) Oral QD 07/08/19 21 021 Inactive Vitamin D3 25 mcg (1,000 unit) tablet RxNorm: 567315 Take 1 Tablet(s) Oral QD 07/08/19 021 Inactive isosorbide dinitrate 30 mg tablet RxNorm: 652717 Take 1 Tablet(s) Oral QD 07/08/19 021 Inactive carbamazepine 200 mg tablet RxNorm: 971713 Take 1 Tablet(s) Oral BID 07/08/19 025 Inactive Levemir FlexTouch U-100 Insulin 100 unit/mL (3 mL) subcutaneous pen RxNorm: 310632 Inject 140 Unit(s) Subcutaneous BID 07/08/19 021 Inactive torsemide 20 mg tablet RxNorm: 332129 Take 1 Tablet(s) Oral QD 07/08/19 023 Inactive venlafaxine 75 mg tablet RxNorm: 442033 Take 1 Tablet(s) Oral QD 07/08/19 021 Inactive acetaminophen 500 mg tablet RxNorm: 289306 Take 1 Tablet(s) Oral TID as needed for headache 06/18/19 021 Inactive acetaminophen 500 mg tablet RxNorm: 499583 Take 1 Tablet(s) Oral TID as needed for headache 06/18/19 021 Inactive Lyrica 100 mg capsule RxNorm: 192803 Take 1 Capsule(s) Oral QHS every night at bedtime 06/11/19 021 Inactive Lyrica 50 mg capsule RxNorm: 301987 Take 1 Capsule(s) Oral QAM every morning 06/10/19 21 021 Inactive hydrocortisone 2.5 % topical cream RxNorm: 487784 Apply to bilateral groin creases Topical BID 05/15/20 20 021 Inactive clotrimazole 1 % topical cream RxNorm: 720388 Apply to bilateral groin areas Topical BID 05/15/20 20 01/12/2 021 Inactive Lyrica 50 mg capsule RxNorm: 766297 Take 1 Capsule(s) Oral QAM every morning 05/14/20 20 Inactive Lyrica 100 mg capsule RxNorm: 344282 Take 1 Capsule(s) Oral QHS every night [...] Inactive Nystop 100,000 unit/gram topical powder RxNorm: 182922 Apply to abd folds, under breasts and L side of groin Topical BID x 14 days, then BID PRN 04/08/20 20 Inactive dx: yeast dermatitis Lyrica 100 mg capsule RxNorm: 520428 Take 1 Capsule(s) Oral QHS every night at bedtime 03/13/20 20 Inactive Lyrica 50 mg capsule RxNorm: 158308 Take 1 Capsule(s) Oral QAM every morning 03/13/20 20 Inactive ketoconazole 2 % shampoo RxNorm: 216105 Apply Topical two times a week with showers 03/11/20 20 024 Inactive cholecalciferol (vitamin D3) 50 mcg (2,000 unit) tablet RxNorm: 336284 Take 1 Tablet(s) Oral QD 03/11/20 20 021 Inactive Zetia 10 mg tablet RxNorm: 318195 Take 1 Tablet(s) Oral QD 03/07/20 021 Inactive Zetia 10 mg tablet RxNorm: 826012 Take 1 Tablet(s) Oral QD 03/07/20 Inactive Lyrica 50 mg capsule RxNorm: 947139 Take 1 Capsule(s) Oral QAM every morning 02/15/20 20 020 Inactive Lyrica 100 mg capsule RxNorm: 602287 Take 1 Capsule(s) Oral QHS every night at bedtime 02/15/20 020 Inactive Lyrica 100 mg capsule RxNorm: 586190 Take 1 Capsule(s) Oral QHS every night at bedtime 02/15/20 Inactive Lyrica 50 mg capsule RxNorm: 652428 Take 1 Capsule(s) Oral QAM every morning 02/15/20 Inactive venlafaxine ER 75 mg capsule,extended release 24 hr RxNorm: 550746 Take 3 Capsule(s) Oral QD 06/12/19 023 Inactive polyethylene glycol 3350 17 gram/dose oral powder RxNorm: 130914 Take 17=1 capful Gram(s) Oral BID as needed mix with 4-8oz of liquid 06/12/19 22 024 Inactive icosapent ethyl 1 gram capsule RxNorm: 3273621 Take 2 Capsule(s) (2 gm) Oral BID with meals 10/07/19 023 Inactive Okay to dispense one 2gm tab if you have that available. Levemir FlexTouch U-100 Insulin 100 unit/mL (3 mL) subcutaneous pen RxNorm: 127499 Inject 80 Unit(s) Subcutaneous BID 07/14/19 23 023 Inactive metoprolol succinate ER 200 mg tablet,extended release 24 hr RxNorm: 526116 Take 1 Tablet(s) Oral QD 08/12/19 025 Inactive loperamide 2 mg capsule RxNorm: 476713 Take 1 Capsule(s) Oral QID as needed 09/06/19 025 Inactive hydralazine 50 mg tablet RxNorm: 041052 Take 1 Tablet(s) Oral QID 08/12/19 23 025 Inactive Soft Touch Lancets RxNorm: miscellaneous 03/04/20 24 025 Inactive Novolog Flexpen U-100 Insulin aspart 100 unit/mL (3 mL) subcutaneous RxNorm: 6993723 Insert 30 Unit(s) Subcutaneous TID with meals [...] Item Item Code Result Date Service Location Patient Health Questionnaire (PHQ9) Little interest or pleasure in doing things 93495-5 2 12/28/19 25 Unknown Patient Health Questionnaire (PHQ9) Feeling down, depressed, or hopeless 83769-9 2 12/28/19 25 Unknown Patient Health Questionnaire (PHQ9) Trouble falling or staying asleep, or sleeping too much 42228-1 1 12/28/19 25 Unknown Patient Health Questionnaire (PHQ9) Feeling tired or having little energy 98833-7 2 12/28/19 25 Unknown Patient Health Questionnaire (PHQ9) Poor appetite or overeating 01436-5 2 12/28/19 25 Unknown Patient Health Questionnaire (PHQ9) Feeling bad about yourself or that you are a failure or have let yourself or your family down 02733-3 0 12/28/19 Unknown Patient Health Questionnaire (PHQ9) Trouble concentrating on things, such as reading the newspaper or watching television 13637-8 0 12/28/19 Unknown Patient Health Questionnaire (PHQ9) Moving or speaking so slowly that other people could have noticed or the opposite being so figety or restless that you have been moving around a lot more than usual 63027-6 0 12/28/19 Unknown Patient Health Questionnaire (PHQ9) Thoughts that you would be better off , or of hurting yourself 09380-5 0 12/28/19 Unknown Patient Health Questionnaire (PHQ9) If you checked off any problems, how difficult Not difficult at all have these problems made it for you to do your work, take care of things at home, or get along with other people? 3 12/28/19 Unknown Patient Health Questionnaire (PHQ9) Total Score 9 12/28/19 Unknown Functional Status Functional / Cognitive Codes Status [...] Status Date Patient Education: Patient Medication Summary Rekcxcdyt83/12/2025Referral: [facility] [address] [id number] [place]ReferralNo Records Wzgrigsz62/06/2025ppointment: Harrison Munson WPtel: [address] [facility]/U008/08/2024ppointment: Brian Munsone WPtel: [address] [facility] 300 [id number] USF/U007/11/2024Referral: [facility] Surgery [place]/Endocrinology WPtel: [address] [facility] [address] [id number] [place]ReferralNo Records Wfmkmhxq48/24/2025ppointment: Bacilio MunsonKenzie WPtel: [address] [facility] 300 [id number] USAWV02/08/2024ppointment: Bacilio MunsonKenzie WPtel: [address] [facility] 300 [id number] USF/U001/11/2024ppointment: Sandra Clark WPtel: [address] [place] [address] 300 [id number] [facility] Psych Follow Up12/09/2022ppointment: Tapan Shirley WPtel: [address] [facility] 300 [id number] [facility]10/26/2022Referral: [facility] WPtel: [address], [address] [id number] USReferralRecords Ozsfplcm40/08/2023ppointment: Tapan Shirley WPtel: [address] [facility] 300 [id number] USF/U008/11/2022ppointment: Tapan Shirley WPtel: [address] [facility] 300 [id number] USF/07/14/2022ppointment: Tapan Shirley WPtel: [address] [facility] 300 [id number] USF/U002/10/2022eferral: [facility] WPtel: [address] [facility] [address] [id number] IPPrkesbebRpjscxpzn37/12/2022Referral: General CardiologyReferralCompleted 1Referral: General PsychologistReferralClosedReferral: General PsychiatristReferralPatient/Family Scheduling AppointmentReferral: [facility] WPtel: [facility] [id number] USReferralFacility Scheduling AppointmentReferral: General Physical Medicine [...] Sister Jyotsna involved in his care cell# [phone] Guardian: Giulia (tapan met in person 09/01/21), [...] order K recheck 6.: Potassium recheck 4.0. 12.26.2024: BMP K 4.0, Na 138, Creatinine 1.35H, eGFR 58L, BUN 24.9H. Ca 9.0. BG 363H. A1c 7.9H. Colon & Rectal Surgery visit scheduled for 06.19.2023 with Matilde Pérez PA-C. Endocrinology appointment 05.26.2024 with Jessa Webster MD at [facility]. Start Pioglitazone 15 mg QD. Stop Basaglar insulin. Increase Ozempic 2 mg once wkly. Continue Humalin R U-500 100 units with meals TID. FOLLOW UP 2 MONTHS. If BG >400 add 50 units to next scheduled dose of Humalin R U 500 insulin 01/08/2025
--- OUTSIDE RECORDS SUMMARY | 2025-02-07 18:00 | XMS_ITS | CCD ---
Author Name Alissa Zheng MD her Address 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 Unknown No [...] Unknown Assisted 09/03/[address]: 766695539 No Alcohol Consum ption 09/02/2020 Allergies, Adverse Reactions, Alerts Substance Reaction Codes Entered Date Inactivated Date Status * NO KNOWN FOOD ALLERGIES Ybsdyte3007/13/2023No Inactive DateActiveLISINOPRILRxNorm: 387890702/12/2020No Inactive DateActiveMetformin WKgGvewsco79/28/2020No Inactive DateActive* NO KNOWN ENVIRONMENTAL OHEBWDOQXWdairln86/27/2024No Inactive DateActive Past Medical History Illness Codes Condition Status Onset Date Resolved Date Coronary artery disease invo lving [place] coronary artery of [place] heart, angina presence unspecified ICD-10: I25.10 ICD-9: 414.83Intwqe26/23/2025UnknownDiabetic neuropathy associated with type 2 diabetes mellitusICD-10: E11.40 ICD-9: 250.64Vkyamt86Lower extremity edemaICD-10: R60.0 ICD-9: 782.1Omgwad2102/06/2025UnknownOSA (obstructive sleep apnea)ICD-10: G47.33 ICD-9: 327.50Ciivvd01/23/2025UnknownPoor dental hygieneSNOMED CT: 121464882 ICD-10: Z91.89 ICD-9: 525.9Khvzqg0702/06/2025UnknownSimple chronic bronchitisSNOMED CT: 40536634 ICD-10: J41.0 ICD-9: 491.5Drsdlt3302/06/2025UnknownCKD stage 3a, GFR 45-59 ml/[address]: 004661941 ICD-10: N18.31 ICD-9: 585.8Ybqrnn62Hypertensive heart disease without heart failureICD-10: I11.9 ICD-9: 402.47Dhnsgj12/26/2025UnknownOnychogryposisICD-10: L60.2 ICD-9: 703.5Shgzwz5001/09/2025UnknownType 2 diabetes mellitus with diabetic chronic kidney diseaseICD-10: E11.22 ICD-9: 250.42Jncobi89/26/2025UnknownBody mass index [BMI] 60.0-69.9, adultICD- 10: Z68.44 ICD-9: V85.59Uwqqda20/07/2025UnknownHistory of recent hospitalizationSNOMED CT: 006831963 ICD-10: Z92.89 ICD-9: V13.6Ezuiol0012/21/2024UnknownHypokalemiaICD-10: E87.6 ICD-9: 276.0Vbegjp7812/21/[address] incontinenceSNOMED CT: 56231558 ICD-10: N39.46 ICD-9: 788.18Cequcf29/07/2025UnknownType 2 diabetes mellitus with diabetic polyneuropathy, with long-term current use of insulinICD-10: E11.42 ICD-9: 250.02Awnnpm74/07/2025UnknownCandidal intertrigoICD-10: B37.2 ICD-9: 112.2Bhzgen5112/12/2024UnknownPulmonary noduleICD-10: R91.1 ICD-9: 793.74Csxrfk16/29/2025UnknownConstipation by delayed colonic transitICD- 10: K59.01 ICD-9: 564.61Uhknqh30/24/2025UnknownLoose stoolsICD-10: R19.5 ICD-9: 787.2Dvdwvd7811/07/2024UnknownParaparesis of both lower limbsICD-10: G82.20 ICD-9: 344.8Ixizjr0511/07/2024UnknownSeizure disorderICD-10: G40.909 ICD-9: 345.76Dkpmzm88/24/2025UnknownAmputated toe of right footICD-10: S98.131A ICD-9: 895.3Mzwnrx16/03/2025Hypercoagulable stateICD-10: D68.59 ICD-9: 289.72Omaqol59/27/2025UnknownMajor depression, recurrentICD-10: F33.9 ICD-9: 296.20Spxzhn80/27/2025UnknownRecurrent major depressive disorder, in partial remissionICD-10: F33.41 ICD-9: 296.38Tsmgvf29/27/2025UnknownPressure ulcer of left calf, unstageableICD- 10: L89.890 ICD-9: 707.97Xiyxgkvj87/27/2025UnknownHemorrhoidsICD-10: K64.9 ICD-9: 455.6Gsimoh9407/11/2024UnknownPVD (peripheral vascular disease)ICD-10: I73.9 ICD-9: 443.0Rvjcwe0007/11/2024UnknownHyperlipidemia associated with type 2 diabetes mellitusICD-10: E11.69 ICD-9: 250.70Pxsyuu91/28/2025UnknownAdvance care planningICD-10: Z71.89 ICD-9: V65.25Pefgwv15/23/20230517/03/2025Low back painICD-10: M54.50 ICD-9: 724.8Oamtyu1303/07/2024UnknownPhysical deconditioningICD-10: R53.81 ICD-9: 799.4Bdsxha3303/07/2024UnknownAdvanced care planning - to document end of life mkeqlkfriowGpoehdjBsivpo38/24/2024UnknownAnnual physical examICD-10: Z00.00 ICD-9: V70.5Thndfw60/03/2025History of anemia due to CKDICD-10: N18.9 ICD-9: 585.5Xzcspd3602/08/2024UnknownHx of deep venous thrombosisICD-10: Z86.718 ICD-9: V12.55Opddnj06/24/2024UnknownLearning disabilityICD-10: F81.9 ICD-9: 315.5Rxsorb0502/08/2024UnknownReducible umbilical herniaICD-10: K42.9 ICD-9: 553.7Lagpvr3102/08/2024UnknownVitamin D deficiencyICD-10: E55.9 ICD-9: 268.4Jailjn1602/08/2024UnknownCallus of heelICD-10: L84 ICD-9: 329Kgcrdlra38/28/2024UnknownGout due to renal impairmentICD-10: M10.30 ICD-9: 274.90Rzjvcidk60/28/2024UnknownHyperhidrosis of palmsICD-10: L74.512 ICD-9: 705.55Vsnuzrqr17/28/2024UnknownHyperlipidemia, unspecifiedICD-10: E78.5 ICD-9: 272.7Rzzthxju48/28/2024UnknownOther nursing home (current) drug therapyICD- 10: Z79.899 ICD-9: V58.53Jdxvdxau45/28/2024UnknownPain of right heelICD-10: M79.671 ICD-9: 729.5Qfsynhkj16/28/2024UnknownStage 2 chronic kidney diseaseICD-10: N18.2 ICD-9: 585.3Tbyfqglw95/28/2024UnknownTinea pedis of both feetICD-10: B35.3 ICD-9: 110.2Vuoybyqr28/28/2024UnknownCellulitisICD-10: L03.90 ICD-9: 682.9Crfxnswn72/23/2024UnknownDandruff in adultICD-10: L21.0 ICD-9: 690.27Ssphadsc49/23/2024UnknownEncounter for other specified special examinationsICD-10: Z01.89 ICD-9: V72.18Znnmeoqc07/23/2024UnknownEncounter for screening for nutritional disorderICD-10: Z13.21 ICD-9: V77.81Yajjovkl42/23/2024UnknownImpacted cerumen, left earICD-10: H61.22 ICD-9: 380.6Bvfcpxfo09/23/2024UnknownShortness of breathICD-10: R06.02 ICD-9: 786.40Webbcuwp90/23/2024UnknownSkin tagICD-10: L91.8 ICD-9: 701.5Zeqcfgno37/23/2024UnknownInappropriate sexual behaviorICD-10: Z72.89 ICD-9: 312.55Fhcddx55UnknownPre-op evaluationICD-10: Z01.818 ICD-9: V72.43Bqxobh49/28/2023UnknownSecondary hypertensionICD-10: I15.9 ICD-9: 405.76Zjvpmt43/28/2023UnknownDepressionICD-10: F32.9 ICD-9: 997Jwrjmabg77/27/2022UnknownDVT (deep venous thrombosis)ICD-10: I82.409 ICD-9: 453.73Sqtxixwb89/27/2022UnknownEncounter for immunizationICD-10: Z23 ICD-9: V03.98Mfmyqqez28/27/2022UnknownLong term (current) use of insulinICD-10: Z79.8Vzshdzfc94/27/2022UnknownMuscular painICD-10: M79.10 ICD-9: 729.5Onudwhky71/27/2022UnknownHypertension associated with diabetesICD- 10: E11.59 ICD-9: 250.79Rkcaldbi91/23/2022UnknownContact with and (suspected) exposure to lbppj-20HBG-96: Z20.822 ICD-9: V01.53Lrmmdslo49/17/2021UnknownOther infective acute otitis externa of left earICD-10: H60.392 ICD-9: 380.04Ygsvhzlq68/17/2021UnknownScrotal skin lesionICD-10: N50.9 ICD-9: 608.0Erlbvtlr64/17/2021UnknownAnemia due to stage 3b chronic kidney diseaseICD-10: N18.32 ICD-9: 285.41Pawbfczm60UnknownChronic kidney disease, stage 3 unspecifiedICD-10: N18.59Boantfdo69/20/2021UnknownContact with and (suspected) exposure to other viral communicable diseasesICD-10: Z20.828 ICD-9: V01.38Claxuonu069655QbmasdtGipbmxtsMkfkjpoKbqacv14/28/2020Unknown Diabetes mellitus Type 1HfukbrdQzikns90/28/2020UnknownAnemia in chronic kidney diseaseICD-10: D63.6Hsjwopgy85/28/2020UnknownHyperlipidemia, unspecifiedICD-10: E78.7Nzstsjht95/28/2020Unknown Problems Condition Codes Effective Dates Condition St atus Coronary artery disease invo lving [place] coronary artery of [place] heart, angina presence unspecified ICD-10: I25.10 ICD-9: 414.0109/5ActiveDiabetic neuropathy associated with type 2 diabetes mellitusICD-10: E11.40 ICD-9: 250.6009/5ActiveLower extremity edemaICD-10: R60.0 ICD-9: 782.309/5ActiveOSA (obstructive sleep apnea)ICD-10: G47.33 ICD-9: 327.2309/5ActivePoor dental hygieneSNOMED CT: 926415624 ICD-10: Z91.89 ICD-9: 525.809/5ActiveSimple chronic bronchitisSNOMED CT: 24036667 ICD-10: J41.0 ICD-9: 491.009/5ActiveCKD stage 3a, GFR 45-59 ml/minSN[address]ED CT: 076206342 ICD-10: N18.31 ICD-9: 585.308/5ActiveHypertensive heart disease without heart failureICD- 10: I11.9 ICD-9: 402.9008/5ActiveOnychogryposisICD-10: L60.2 ICD-9: 703.8085ActiveType 2 diabetes mellitus with diabetic chronic kidney diseaseICD-10: E11.22 ICD-9: 250.4008/5ActiveBody mass index [BMI] 60.0-69.9, adultICD-10: Z68.44 ICD-9: V85.44085ActiveHistory of recent hospitalizationSNOMED CT: 811990610 ICD-10: Z92.89 ICD-9: V13.908/5ActiveHypokalemiaICD-10: E87.6 ICD-9: 276.808/5ActiveMixed incontinenceSNOMED CT: 30643553 ICD-10: N39.46 ICD-9: 788.3308/5ActiveType 2 diabetes mellitus with diabetic polyneuropathy, with long-term current use of insulinICD-10: E11.42 ICD-9: 250.6008/5ActiveCandidal intertrigoICD-10: B37.2 ICD-9: 112.307/5ActivePulmonary noduleICD-10: R91.1 ICD-9: 793.1107/5ActiveConstipation by delayed colonic transitICD-10: K59.01 ICD-9: 564.0106/5ActiveLoose stoolsICD-10: R19.5 ICD-9: 787.706/5ActiveParaparesis of both lower limbsICD-10: G82.20 ICD-9: 344.106/5ActiveSeizure disorderICD-10: G40.909 ICD-9: 345.9006/5ActiveAmputated toe of right footICD-10: S98.131A ICD-9: 895.005/5ActiveHypercoagulable stateICD-10: D68.59 ICD-9: 289.8105/5ActiveMajor depression, recurrentICD-10: F33.9 ICD-9: 296.3005/5ActiveRecurrent major depressive disorder, in partial remissionICD-10: F33.41 ICD-9: 296.3505/5ActivePressure ulcer of left calf, unstageableICD-10: L89.890 ICD-9: 707.0905/ResolvedHemorrhoidsICD-10: K64.9 ICD-9: 455.602/5ActivePVD (peripheral vascular disease)ICD-10: I73.9 ICD-9: 443.902/5ActiveHyperlipidemia associated with type 2 diabetes mellitusICD-10: E11.69 ICD-9: 250.8001/5ActiveAdvance care planningICD-10: Z71.89 ICD-9: V65.4912/4ActiveLow back painICD-10: M54.50 ICD-9: 724.210ctivePhysical deconditioningICD-10: R53.81 ICD-9: 799.310ctiveAdvanced care planning - to document end of life wdyhlchonxvEefvtss17/24/2024ctiveAnnual physical examICD-10: Z00.00 ICD-9: V70.009ctiveHistory of anemia due to CKDICD-10: N18.9 ICD-9: 585.909ctiveHx of deep venous thrombosisICD-10: Z86.718 ICD-9: V12.5109ctiveLearning disabilityICD-10: F81.9 ICD-9: 315.209ctiveReducible umbilical herniaICD-10: K42.9 ICD-9: 553.109ctiveVitamin D deficiencyICD-10: E55.9 ICD-9: 268.909ctiveCallus of heelICD-10: L84 ICD-9: 86094/esolvedGout due to renal impairmentICD-10: M10.30 ICD-9: 274.1005esolvedHyperhidrosis of palmsICD-10: L74.512 ICD-9: 705.21010/12/2023esolvedHyperlipidemia, unspecifiedICD-10: E78.5 ICD-9: 272.405esolvedOther nursing home (current) drug therapyICD-10: Z79.899 ICD-9: V58.6905esolvedPain of right heelICD-10: M79.671 ICD-9: 729.505esolvedStage 2 chronic kidney diseaseICD-10: N18.2 ICD-9: 585.205esolvedTinea pedis of both feetICD-10: B35.3 ICD-9: 110.405esolvedCellulitisICD-10: L03.90 ICD-9: 682.904/4ResolvedDandruff in adultICD-10: L21.0 ICD-9: 690.1804/4ResolvedEncounter for other specified special examinationsICD-10: Z01.89 ICD-9: V72.8504/esolvedEncounter for screening for nutritional disorder ICD-10: Z13.21 ICD-9: V77.9904/esolvedImpacted cerumen, left earICD-10: H61.22 ICD-9: 380.404/esolvedShortness of breathICD-10: R06.02 ICD-9: 786.0504/esolvedSkin tagICD-10: L91.8 ICD-9: 701.904esolvedInappropriate sexual behaviorICD-10: Z72.89 ICD-9: 312.8910/3ActivePre-op evaluationICD-10: Z01.818 ICD-9: V72.8403/ctiveSecondary hypertensionICD-10: I15.9 ICD-9: 405.9903ctiveDepressionICD-10: F32.9 ICD-9: 75811/2ResolvedDVT (deep venous thrombosis)ICD-10: I82.409 ICD-9: 453.40092ResolvedEncounter for [...] to other viral communicable diseasesICD-10: Z20.828 ICD-9: V01.79025360VfiqgyghRyxaiwhcFgicufc41/28/2020ActiveDiabetes mellitus Type 8Jgdvqng25/28/2020ActiveAnemia in chronic kidney diseaseICD-10: D63.1 02/12/2020ResolvedHyperlipidemia, unspecifiedICD-10: E78.Resolved Medications Medication Codes Instructions Start Date Stop Date Status Fill Instructions pregabalin 150 mg capsule RxNorm: 138092 1 CAPSULE BY MOUTH AT BEDTIME (DX: NEUROPATHY) 01/13/20 25 026 Active PLEASE SEND NEW RX, PATIENT IS ALMOST OUT. THANKS! clotrimazole 1 % topical cream RxNorm: 871057 apply one application to affected and surrounding area(s) of skin BID until clinical resolution (abdominal and thigh folds), typically 1-4 weeks.Pause nystatin powder use while using clotrimazole cream. 01/03/20 25 025 Inactive clotrimazole 1 % topical cream RxNorm: 104252 apply one application to affected and surrounding area(s) of skin BID until clinical resolution (abdominal and thigh folds), typically 1-4 weeks. Pause nystatin powder use while using clotrimazole cream. 01/03/20 25 025 Inactive Culturelle 10 billion cell capsule RxNorm: 413917 Take 1 Capsule(s) Oral QD 11/08/19 25 026 Active Culturelle 10 billion cell capsule RxNorm: 681242 Take 1 Capsule(s) Oral QD 11/08/19 25 025 Inactive hydrocodone 5 mg-acetaminophen 325 mg tablet RxNorm: 055862 Take 1 Tablet(s) Oral Q4H every four hours as needed for pain PRN for severe acute dental pain 10/21/19 25 025 Inactive penicillin V potassium 500 mg tablet RxNorm: 577382 Take 1 Tablet(s) Oral QID Take until dental appointment per ER recommendation 10/21/19 25 025 Inactive hydrocodone 5 mg-acetaminophen 325 mg tablet RxNorm: 931766 Take 1 Tablet(s) Oral Q4H every four hours as needed for pain PRN for severe acute dental pain 10/21/19 25 025 Inactive penicillin V potassium 500 mg tablet RxNorm: 704474 Take 1 Tablet(s) Oral QID Take until dental appointment per ER recommendation 10/21/19 25 025 Inactive potassium chloride ER 20 mEq tablet,extended release RxNorm: 866264 Take 2 Tablet(s) Oral TID (dx: hypokalemia) 09/14/19 25 026 Active potassium chloride ER 20 mEq tablet,extended release RxNorm: 902328 Take 2 Tablet(s) Oral TID (dx: hypokalemia) 09/14/19 25 025 Inactive loperamide 2 mg tablet RxNorm: 995788 Take 2 Tablet(s) Oral UD as directed as needed 2 tabs after first loose stool then 1 tab after each subsequent stool PRN. Do not exceed 4 doses in 24 hours. Do not administer until after 3 loose stools. 09/06/19 25 No Stop Date Active Minerin Creme topical RxNorm: Apply 1 Application Topical QD as needed 09/06/19 25 No Stop Date Active senna 8.6 mg tablet RxNorm: 972360 Take 1 Tablet(s) Oral QD as needed and 1 tab BID prn 09/06/19 25 No Stop Date Active cyclobenzaprine 10 mg tablet RxNorm: 064338 Take 1 Tablet(s) Oral QHS every night at bedtime as needed 09/06/19 25 No Stop Date Active loperamide 2 mg tablet RxNorm: 492412 Take 2 Tablet(s) Oral UD as directed as needed 2 tabs after first loose stool then 1 tab after each subsequent stool PRN Do not exceed 4 doses in 24 hours. Do not administer until after 3 loose stools. 09/06/19 026 Active pioglitazone 15 mg tablet RxNorm: 667892 Take 1 Tablet(s) Oral QD 09/06/19 No Stop Date Active loperamide 2 mg tablet RxNorm: 512185 Take 2 Tablet(s) Oral UD as directed as needed 2 tabs after first loose stool then 1 tab after each subsequent stool PRN Do not exceed 4 doses in 24 hours. Do not administer until after 3 loose stools. 09/06/19 025 Inactive pregabalin 100 mg capsule RxNorm: 339359 1 CAPSULE BY MOUTH EVERY MORNING (DX: NEUROPATHY) 08/23/19 025 Inactive FACILITY IS REQUESTING REFILL. PRIOR RX HAS BEEN EXHAUSTED. THANK YOU. pregabalin 150 mg capsule RxNorm: 622266 1 CAPSULE BY MOUTH AT BEDTIME (DX: NEUROPATHY) 08/21/19 025 Inactive FACILITY IS REQUESTING A REFILL OF THIS MEDICATION, THANK YOU! senna 8.6 mg tablet RxNorm: 738902 Take 1 Tablet(s) Oral QD as needed for constipation on day 2 of no bowel movement 08/09/19 025 Inactive Miralax 17 gram/dose oral powder RxNorm: 291279 Administer 17 Gram(s) Oral QD as needed for constipation on day 3 of no bowel movement 08/09/19 025 Inactive senna 8.6 mg tablet RxNorm: 981492 Take 1 Tablet(s) Oral QD as needed for constipation on day 2 of no bowel movement 08/09/19 25 025 Inactive Miralax 17 gram/dose oral powder RxNorm: 264217 Administer 17 Gram(s) Oral QD as needed for constipation on day 3 of no bowel movement 08/09/19 025 Inactive pregabalin 100 mg capsule RxNorm: 642769 Take 1 Capsule(s) Oral QAM every morning [...] (Concentrated) Insulin 500 unit/mL subcutaneous soln RxNorm: 995226 Inject 100 Unit(s) Subcutaneous AC before meals Three times daily before meals. 07/24/19 25 025 Inactive ammonium lactate 12 % topical cream RxNorm: 552894 Apply 1 Application Topical BID 07/20/19 25 No Stop Date Active ezetimibe 10 mg tablet RxNorm: 055937 Take 1 Tablet(s) Oral QD 07/18/19 25 No Stop Date Active senna 8.6 mg tablet RxNorm: 612379 Take 1 Tablet(s) Oral QD 07/18/19 25 025 Inactive metoprolol succinate ER 200 mg tablet,extended release 24 hr RxNorm: 149850 Take 1 Tablet(s) Oral QD 06/19/19 25 No Stop Date Active pantoprazole 40 mg tablet,delayed release RxNorm: 299733 Take 1 Tablet(s) Oral QAM every morning 06/19/19 25 025 Inactive hydralazine 50 mg tablet RxNorm: 809419 Take 1 Tablet(s) Oral QID 06/19/19 25 No Stop Date Active carbamazepine 200 mg tablet RxNorm: 888110 Take 1 Tablet(s) Oral BID 06/19/19 25 No Stop Date Active amlodipine 10 mg tablet RxNorm: 615944 Take 1 Tablet(s) Oral QD 06/19/19 25 No Stop Date Active Eliquis 5 mg tablet RxNorm: 3844566 Take 1 Tablet(s) Oral BID 06/19/19 25 No Stop Date Active pen needle, diabetic 30 gauge x 3/16 RxNorm: Use 1 6 times per day w/insulin 06/14/19 25 026 Active pen needle, diabetic 30 gauge x 3/16 RxNorm: Use 1 needle 6 times per day w/insulin 06/14/19 25 025 Inactive nystatin 100,000 unit/gram topical powder RxNorm: 161683 Apply 1 Application Topical BID as needed abdominal/breast/ groin folds 01/08/ 026 Active pregabalin 100 mg capsule RxNorm: 947443 Take 1 Capsule(s) Oral QAM every morning 05/22/19 025 Inactive nystatin 100,000 unit/gram topical powder RxNorm: 729353 Apply 1 Application Topical BID as needed abdominal/breast/ groin folds 04/11/20 Inactive chlorthalidone 25 mg tablet RxNorm: 409246 Take 1 Tablet(s) Oral QAM every morning 04/06/20 No Stop Date Active pregabalin 150 mg capsule RxNorm: 606097 Take 1 Capsule(s) Oral QHS every night at bedtime 03/31/20 Inactive Vascepa 1 gram capsule RxNorm: 0648424 Take 2 Capsule(s) Oral BID 03/30/20 Inactive rosuvastatin 40 mg tablet RxNorm: 265336 1 TAB ORALLY EVERY EVENING (DX:CORONARY ARTERY DISEASE) 03/28/20 No Stop Date Active venlafaxine ER 75 mg capsule,extended release 24 hr RxNorm: 835769 3 CAPS (225MG) ORALLY DAILY (DX: MOOD DISORDER) 03/28/20 No Stop Date Active pregabalin 100 mg capsule RxNorm: 428535 Take 1 Capsule(s) Oral QAM every morning 03/20/20 Inactive cholecalciferol (vitamin D3) 1,250 mcg (50,000 unit) capsule RxNorm: 838320 Take 1 Capsule(s) Oral QW once a week 03/15/20 025 Inactive Lancets,Thin 28 gauge RxNorm: Use [...] Insulin 100 unit/mL (3 mL) subcutaneous RxNorm: 6692824 Inject 40 Unit(s) Subcutaneous BID 03/07/20 025 Inactive Please dispense one month supply. Humulin R U-500 (Concentrated) Insulin 500 unit/mL subcutaneous soln RxNorm: 346544 Inject 100 Unit(s) Subcutaneous AC before meals [...] PRN) to be use with new Accu [place] meter 03/04/20 Inactive ok to substitute with any covered alternative test strip FreeStyle Chema 2 Sensor kit RxNorm: Use UD as directed 03/02/20 Inactive Pen Needle 30 gauge x 5/16 RxNorm: Pen(s) Use 1 needle as directed TID 03/02/20 Inactive nystatin 100,000 unit/gram topical powder RxNorm: 978091 Apply 1 Application Topical BID as needed [...] (Concentrated) Insulin 500 unit/mL subcutaneous soln RxNorm: 566162 Inject 100 Unit(s) Subcutaneous TID 02/17/20 24 024 Inactive Humulin R U-500 (Concentrated) Insulin 500 unit/mL subcutaneous soln RxNorm: 375932 Inject 100 Unit(s) Subcutaneous TID 02/10/20 24 024 Inactive Basaglar KwikPen U-100 Insulin 100 unit/mL (3 mL) subcutaneous RxNorm: 5195136 Inject 30 Unit(s) Subcutaneous BID 02/10/20 24 024 Inactive Please dispense one month supply. pregabalin 100 mg capsule RxNorm: 251836 Take 1 Capsule(s) Oral QAM every morning 02/07/20 24 024 Inactive isosorbide mononitrate ER 60 mg tablet,extended release 24 hr RxNorm: 245359 Take 1 Tablet(s) Oral QD 02/01/20 24 025 Inactive aripiprazole 15 mg tablet RxNorm: 044065 Take 1/2 Tablet(s) Oral QD 02/01/20 24 025 Inactive torsemide 20 mg tablet RxNorm: 619787 1 TAB ORALLY DAILY (DX: EDEMA) 01/27/20 No Stop Date Active potassium chloride ER 20 mEq tablet,extended release(part/cryst) RxNorm: 0393525 2 TABS (40MEQ) ORALLY TWICE DAILY (DX: HYPOKALEMIA) 01/27/20 24 025 Inactive cephalexin 500 mg capsule RxNorm: 581201 Take 1 Capsule(s) Oral QID 12/17/19 24 024 Inactive cephalexin 500 mg capsule RxNorm: 146323 Take 1 Capsule(s) Oral QID 12/17/19 24 024 Inactive acetaminophen 500 mg tablet RxNorm: 464013 (MAX APAP:4GM/24HR) Take 1 Tablet(s) Oral TID [...] %-0.3 % drops in a dropperette RxNorm: 150938 Apply 1-2 Drop(s) Both eyes BID as needed 09/28/19 24 Inactive erythromycin 5 mg/gram (0.5 %) eye ointment RxNorm: 615619 Apply 1 Application Both eyes QHS every night at bedtime Instill ~1 cm ribbon into affected eye 09/28/19 24 Inactive Artificial Tears (PF) 0.1 %-0.3 % drops in a dropperette RxNorm: 795957 Apply 1-2 Drop(s) Both eyes BID as needed 09/28/19 24 024 Inactive erythromycin 5 mg/gram (0.5 %) eye ointment RxNorm: 600545 Apply 1 Application Both eyes QHS every night at bedtime Instill ~1 cm ribbon into affected eye 09/28/19 24 024 Inactive acetaminophen 500 mg tablet RxNorm: 050155 (MAX APAP:4GM/24HR) Take 1 Tablet(s) Oral TID as needed for pain 09/24/19 24 Inactive carvedilol 25 mg tablet RxNorm: 332489 Take 1 Tablet(s) Oral QD 09/08/19 24 No Stop Date Active pregabalin 100 mg capsule RxNorm: 958820 Take 1 Capsule(s) Oral QAM every morning 09/07/19 24 024 Inactive bisacodyl 10 mg rectal suppository RxNorm: 501863 Insert 1 Suppository Rectal QD as needed 07/13/19 24 No Stop Date Active ketoconazole 2 % shampoo RxNorm: 569904 Apply 1 Application Topical UD as directed 07/13/19 24 No Stop Date Active Ozempic 1 mg/dose (4 mg/3 mL) subcutaneous pen injector RxNorm: 6806294 Inject 1 Milligram(s) Subcutaneous QW once a week 07/13/19 24 No Stop Date Active Guaifenesin AC 10 mg-100 mg/5 mL oral liquid RxNorm: 893889 Take 10 Milliliter(s) Oral Q4H every four hours as needed 07/13/19 24 No Stop Date Active hydrocortisone 2.5 % topical cream RxNorm: 928851 Apply 1 Application Topical BID as needed 07/13/19 24 No Stop Date Active rosuvastatin 40 mg tablet RxNorm: 516092 Take 1 Tablet(s) Oral QPM every evening 07/13/19 24 024 Inactive ezetimibe 10 mg tablet RxNorm: 993894 Take 1 Tablet(s) Oral QD 07/13/19 24 025 Inactive polyethylene glycol 3350 17 gram/dose oral powder RxNorm: 070734 Take 17 Gram(s) Oral BID as needed mix in 4-8ox water 07/13/19 24 025 Inactive aripiprazole 15 mg tablet RxNorm: 245350 Take 1/2 Tablet(s) Oral QD 07/13/19 24 024 Inactive isosorbide mononitrate ER 60 mg tablet,extended release 24 hr RxNorm: 717943 Take 1 Tablet(s) Oral QD 07/13/19 24 024 Inactive ammonium lactate 12 % topical cream RxNorm: 544998 Apply 1 Application Topical BID 07/13/19 24 025 Inactive rosuvastatin 20 mg sprinkle capsule RxNorm: 2645019 Take 1 Capsule(s) Oral QD 07/13/19 24 025 Inactive Vascepa 1 gram capsule RxNorm: 6650269 Take 2 Capsule(s) Oral BID 07/13/19 24 024 Inactive venlafaxine ER 75 mg capsule,extended release 24 hr RxNorm: 901083 Take 3 Capsule(s) Oral QD 07/13/19 24 024 Inactive Basaglar KwikPen U-100 Insulin 100 unit/mL (3 mL) subcutaneous RxNorm: 7852944 Inject 30U SubQ twice daily 07/07/19 24 024 Inactive Please dispense one month supply. Basaglar KwikPen U-100 Insulin 100 unit/mL (3 mL) subcutaneous RxNorm: 6983050 Inject 30U SubQ twice daily 07/07/19 24 024 Inactive Please dispense one month supply. pregabalin 150 mg capsule RxNorm: 239958 Take 1 Capsule(s) Oral QHS every night at bedtime 07/05/19 24 024 Inactive pregabalin 150 mg capsule RxNorm: 182840 Take 1 Capsule(s) Oral QHS every night at bedtime 07/05/19 24 024 Inactive polyethylene glycol 3350 17 gram/dose oral powder RxNorm: 340366 Take 1 Packet Oral QD as needed (1 packet = 17g) mix with 4-8oz of liquid 06/15/19 24 024 Inactive bisacodyl 10 mg rectal suppository RxNorm: 786873 Insert one suppository per rectum once daily as needed for constipation 06/15/19 24 024 Inactive bisacodyl 10 mg rectal suppository RxNorm: 122917 Insert one suppository per rectum once daily as needed for constipation 06/15/19 24 024 Inactive pregabalin 100 mg capsule RxNorm: 317590 Take 1 Capsule(s) Oral QAM every morning 04/27/20 23 024 Inactive Levemir FlexPen 100 unit/mL (3 mL) solution subcutaneous insulin pen RxNorm: 524316 Inject 30 Unit(s) Subcutaneous BID 04/27/20 23 024 Inactive rosuvastatin 40 mg tablet RxNorm: 608558 Take 1 Tablet(s) Oral QPM every evening 04/16/20 23 024 Inactive D/C rosuvastatin 20mg venlafaxine ER 75 mg capsule,extended release 24 hr RxNorm: 131897 Take 3 Capsule(s) Oral QD 11/29/20 23 11/29/2 023 Inactive pregabalin 100 mg capsule RxNorm: 468439 Take 1 Capsule(s) Oral QAM every morning [...] strip clotrimazole 1 % topical cream RxNorm: 603743 Take apply topically to abdominal folds twice daily for 14 days 03/12/20 23 024 Inactive Ozempic 1 mg/dose (4 mg/3 mL) subcutaneous pen injector RxNorm: 3471888 Inject 1 Milligram(s) Subcutaneous QW once a week 03/11/20 23 023 Inactive rosuvastatin 20 mg tablet RxNorm: 201708 Take 1 Tablet(s) Oral QD 02/26/20 23 023 Inactive d/c pravastatin 80mg Ozempic 1 mg/dose (4 mg/3 mL) subcutaneous pen injector RxNorm: 4977225 Inject 1 Milligram(s) Subcutaneous QW once a week 02/20/20 23 023 Inactive pregabalin 150 mg capsule RxNorm: 989555 Take 1 Capsule(s) Oral HS at bed time 02/19/20 23 023 Inactive pregabalin 100 mg capsule RxNorm: 679439 Take 1 Capsule(s) Oral QAM every morning 02/18/20 23 023 Inactive venlafaxine ER 75 mg capsule,extended release 24 hr RxNorm: 039783 Take 3 Capsule(s) Oral QD 02/04/20 23 023 Inactive FreeStyle Chema 2 Sensor kit RxNorm: use as directed 02/04/20 23 023 Inactive FreeStyle Chema 2 Sensor kit RxNorm: use as directed 02/04/20 024 Inactive fluconazole 150 mg tablet RxNorm: 054682 Take 1 Tablet(s) Oral on day 3 and on day 6 02/03/20 024 Inactive venlafaxine ER 150 mg capsule,extended release 24 hr RxNorm: 819564 Take 1 Capsule(s) Oral QD 02/03/20 023 Inactive chlorthalidone 25 mg tablet RxNorm: 559033 Take 1 Tablet(s) Oral QAM every morning 02/03/20 024 Inactive acetaminophen 500 mg tablet RxNorm: 070509 1 TABLET ORALLY 3 TIMES DAILY (MAX APAP:4GM/24HR) 12/15/19 023 Inactive potassium chloride ER 20 mEq tablet,extended release RxNorm: 148763 Take 1 Tablet(s) Oral BID 12/09/19 024 Inactive d/c 20mEq once daily (sent from hospital) clotrimazole 1 % topical cream RxNorm: 329327 apply 1g topically to top of feet and in between toes BID 12/09/19 23 025 Inactive nystatin 100,000 unit/gram topical powder RxNorm: 740120 APPLY TO AFFECTED AREAS TOPICALLY 2 TIMES DAILY 11/21/19 23 023 Inactive Nystop 100,000 unit/gram topical powder RxNorm: 036624 Apply to abd folds, under breasts and L side of groin Topical BID x 14 days, then BID PRN 11/20/19 023 Inactive dx: yeast dermatitis [place] Ultra Strength 4 %-30 %-10 % topical cream RxNorm: 996139 Apply 1 Gram(s) Topical QID PRN to feet and legs for neuropathic pain 11/11/19 23 024 Inactive hydrocortisone 2.5 % topical cream RxNorm: 933356 Apply 1/2 Gram(s) Topical BID as needed 11/10/19 23 024 Inactive clotrimazole 1 % topical cream RxNorm: 844122 Apply 1/2 Gram(s) Topical BID Apply to affected areas of groin, periarea, and abdominal topically 2 times daily 11/10/19 23 025 Inactive Levemir FlexPen 100 unit/mL (3 mL) solution subcutaneous insulin pen RxNorm: 828645 Inject 30 Unit(s) Subcutaneous BID 10/07/19 23 023 Inactive Humulin R U-500 (Concentrated) Insulin 500 unit/mL subcutaneous soln RxNorm: 851967 Inject 100 Unit(s) Subcutaneous TID 10/07/19 23 024 Inactive Ozempic 0.25 mg or 0.5 mg (2 mg/3 mL) subcutaneous pen injector RxNorm: 6436494 Inject 1/2 Milligram(s) Subcutaneous QW once a week 10/07/19 23 024 Inactive aripiprazole 15 mg tablet RxNorm: 532828 1/2 TAB (7.5MG) ORALLY DAILY (DX:MAJOR DEPRESSIVE DISORDER) 09/23/19 23 023 Inactive Accu-Chek Guide test strips RxNorm: Use 1 Test Strip QID 09/15/19 23 023 Inactive ok to substitute with any covered alternative test strip Lancets,Thin 28 gauge RxNorm: Use 1 as directed QID 09/15/19 23 023 Inactive torsemide 20 mg tablet RxNorm: 003569 Take 1 Tablet(s) Oral BID 09/09/19 024 Inactive d/c once daily dosing carvedilol 25 mg tablet RxNorm: 806212 Take 1 Tablet(s) Oral QD 08/25/19 23 024 Inactive pregabalin 150 mg capsule RxNorm: 039864 1 Capsule(s) Oral HS at bed time 08/18/19 023 Inactive pregabalin 100 mg capsule RxNorm: 633708 1 Capsule(s) Oral QAM every morning 08/18/19 023 Inactive carvedilol 25 mg tablet RxNorm: 249188 1 Tablet(s) Oral QD 07/28/19 23 023 Inactive lisinopril 20 mg tablet RxNorm: 835135 Give 1 Tablet(s) Oral QD 07/28/19 23 023 Inactive Lyrica 150 mg capsule RxNorm: 726107 Take 1 Capsule(s) Oral QHS every night at bedtime 07/19/19 23 023 Inactive d/c 100mg dose Diflucan 150 mg tablet RxNorm: 270127 Take 1 Tablet(s) Oral QD repeat on day 3 and 6 07/19/19 23 023 Inactive pregabalin 100 mg capsule RxNorm: 348375 Take 1 Capsule(s) Oral QAM every morning 07/19/19 23 023 Inactive gatifloxacin 0.5 % eye drops RxNorm: 887401 Instill 1 Drop(s) as directed TID Instill 1 drop in to affected eye(s) starting 1 day prior to surgery and continue until gone (do not exceed 4 weeks). 07/13/19 23 023 Inactive carvedilol 25 mg tablet RxNorm: 998903 2 Tablet(s) Oral BID 07/13/19 023 Inactive Humulin R Regular U-100 Insulin 100 unit/mL injection solution RxNorm: 411399 85 Unit(s) Injection TID 07/13/19 23 023 Inactive ketorolac 0.5 % eye drops RxNorm: 210875 Instill 1 Drop(s) as directed QID Instill 1 drop into affected eye(s) 4 times daily starting 1 day prior to surgery and continue until gone (do not exceed 4 weeks). 07/13/19 23 023 Inactive Diflucan 150 mg tablet RxNorm: 454519 Take 1 Tablet(s) Oral QD repeat on day 3 and 6 06/30/19 23 023 Inactive Accu-Chek Guide test strips RxNorm: Use 1 Test Strip QID Use 1 test strip to monitor blood glucose 4 times daily and as needed. Dx:E11.42. 06/23/19 23 023 Inactive ok to substitute with any covered alternative test strip dextromethorphan-gu aifenesin 10 mg-100 mg/5 mL oral liquid RxNorm: 360749 Take 10 Milliliter(s) Oral every 4 hours as needed for cough 06/19/19 23 023 Inactive dextromethorphan-gu aifenesin 10 mg-100 mg/5 mL oral liquid RxNorm: 431608 Take 10 Milliliter(s) Oral every 4 hours as needed for cough 06/19/19 023 Inactive Lyrica 150 mg capsule RxNorm: 049517 Take 1 Capsule(s) Oral QHS every night at bedtime 06/18/19 023 Inactive d/c 100mg dose aripiprazole 15 mg tablet RxNorm: 148389 /2 TAB (7.5MG) ORALLY DAILY (DX:MAJOR DEPRESSIVE DISORDER) 06/05/19 023 Inactive pregabalin 100 mg capsule RxNorm: 110563 1 Capsule(s) Oral QAM every morning 06/02/19 023 Inactive Banophen 50 mg capsule RxNorm: 5805134 Take 1 Capsule(s) Oral Q6H every 6 hours as needed 05/19/19 No Stop Date Active Novolog Flexpen U-100 Insulin aspart 100 unit/mL (3 mL) subcutaneous RxNorm: 9901816 Inject 10 Unit(s) Subcutaneous QHS every night at bedtime with nighttime snack 04/08/20 022 Inactive Novolog Flexpen U-100 Insulin aspart 100 unit/mL (3 mL) subcutaneous RxNorm: 5538281 Inject 42 Unit(s) Subcutaneous TID in addition to sliding scale 04/08/20 022 Inactive d/c 36u albuterol sulfate HFA 90 mcg/actuation aerosol inhaler RxNorm: 4538619 Take 2 Puff(s) Inhalation Q4H every four hours as needed as needed for SOB, cough, or wheezing 04/07/20 030 Active Banophen 50 mg capsule RxNorm: 8652867 Take 1 Capsule(s) Oral Q6H every 6 hours as needed 04/06/20 023 Inactive diphenhydramine 50 mg tablet RxNorm: 9785030 Take 1 Tablet(s) Oral Q6H every 6 hours as needed 04/06/20 022 Inactive diphenhydramine 50 mg tablet RxNorm: 0782575 1 Tablet(s) Oral Q6H every 6 hours as needed 04/06/20 022 Inactive Abilify 15 mg tablet RxNorm: 704808 1/2 Tablet(s) Oral QD 03/10/20 22 023 Inactive Shingrix (PF) 50 mcg/0.5 mL intramuscular suspension, kit RxNorm: 2654747 Administer 1/2 Milliliter(s) Intramuscular QD one time shingrix step 2 ( step 1 given 11/04/21) WITH needle - Nursing please administer upon arrival and once administered post a bridge message with date of administration, draw frame runner, expiration date, and lot# so we can update [facility] 02/18/20 22 022 Inactive dispense with needle Shingrix (PF) 50 mcg/0.5 mL intramuscular suspension, kit RxNorm: 4594319 Administer 1/2 Milliliter(s) Intramuscular QD one time shingrix step 2 ( step 1 given 11/04/21) WITH needle - Nursing please administer upon arrival and once administered post a bridge message with date of administration, draw frame runner, expiration date, and lot# so we can update [facility] 02/18/20 22 022 Inactive dispense with needle Lyrica 100 mg capsule RxNorm: 006681 Take 1 Capsule(s) Oral QAM every morning 01/08/20 22 022 Inactive d/c 50mg dose acetaminophen 500 mg tablet RxNorm: 972452 Take 1 Tablet(s) Oral TID 01/08/20 22 022 Inactive d/c PRN order Lyrica 150 mg capsule RxNorm: 522456 Take 1 Capsule(s) Oral QHS every night at bedtime 01/08/20 22 023 Inactive d/c 100mg dose polyethylene glycol 3350 17 gram/dose oral powder RxNorm: 773808 Take 17=1 capful Gram(s) Oral QD mix with 4-8oz of liquid 01/08/20 22 025 Inactive take this in addition to BID prn order Abilify 5 mg tablet RxNorm: 999119 Take 1 Tablet(s) Oral QD take 1 tab po QD #30 refill 5 dx: MDD 12/12/19 22 022 Inactive Abilify 5 mg tablet RxNorm: 239945 Take 1 Tablet(s) Oral QD take 1 tab po QD #30 refill 5 dx: MDD 12/12/19 22 022 Inactive Novolog Flexpen U-100 Insulin aspart 100 unit/mL (3 mL) subcutaneous RxNorm: 4030577 Inject 42 Unit(s) Subcutaneous TID in addition to sliding scale 12/10/19 22 022 Inactive d/c 36u chlorthalidone 25 mg tablet RxNorm: 380864 Take 1 Tablet(s) Oral QAM every morning 12/10/19 22 023 Inactive pregabalin 50 mg capsule RxNorm: 832122 Take 1 Capsule(s) Oral QAM every morning 11/12/19 22 022 Inactive tetanus-diphtheria toxoids-Td 2 Lf unit-2 Lf unit/0.5 mL IM suspension RxNorm: 139 Take 0.5 Miscellaneous Intramuscular 11/12/19 022 Inactive need tdap - nursing to administer upon arrival pregabalin 50 mg capsule RxNorm: 849728 Take 1 Capsule(s) Oral QAM every morning 10/16/19 022 Inactive pregabalin 50 mg capsule RxNorm: 927509 Take 1 Capsule(s) Oral QAM every morning 10/16/19 22 022 Inactive pregabalin 50 mg capsule RxNorm: 145174 1 Capsule(s) Oral QAM every morning 10/15/19 22 022 Inactive Shingrix (PF) 50 mcg/0.5 mL intramuscular suspension, kit RxNorm: 1871397 Administer 1/2 Milliliter(s) Intramuscular one time Nursing please administer upon arrival and once administered post a bridge message with date of administration, draw frame runner, expiration date, and lot# so we can update [facility]. 10/09/19 22 022 Inactive shingrix step 1 Shingrix (PF) 50 mcg/0.5 mL intramuscular suspension, kit RxNorm: 0665307 Administer 1/2 Milliliter(s) Intramuscular one time Nursing please administer upon arrival and once administered post a bridge message with date of administration, draw frame runner, expiration date, and lot# so we [...] aspart 100 unit/mL (3 mL) subcutaneous RxNorm: 6023964 Inject 10 Unit(s) Subcutaneous QHS every night at bedtime with nighttime snack 10/08/19 22 Inactive Shingrix (PF) 50 mcg/0.5 mL intramuscular suspension, kit RxNorm: 7414863 ADMINISTER 2-DOSE SERIES PER CDC GUIDELINES 10/08/19 22 Active Shingrix (PF) 50 mcg/0.5 mL intramuscular suspension, kit RxNorm: 0875395 ADMINISTER 2-DOSE SERIES PER CDC GUIDELINES 10/08/19 22 Inactive Novolog Flexpen U-100 Insulin aspart 100 unit/mL (3 mL) subcutaneous RxNorm: 5173636 Inject 36 Unit(s) Subcutaneous TID in addition to sliding scale 10/08/19 22 Inactive cholecalciferol (vitamin D3) 1,250 mcg (50,000 unit) capsule RxNorm: 530463 Take 1 Capsule(s) Oral QW once a week 10/08/19 Inactive Novofine Autocover 30 gauge x 1/3 needle RxNorm: Use 1 Miscellaneous UD as directed Use 1 needle as directed to administer insulin 5 times a day Dx:E11.42. 10/03/19 22 Inactive ok to substitute with any covered alternative pen needle benzoyl peroxide 10 % topical cleanser RxNorm: 490495 Apply 1 Application Topical QD apply to face, wash rinse and dry once daily (may change to QOD if drying) 08/19/19 22 022 Inactive (%covered by insurance) #60ml refill 11 dx: acne benzoyl peroxide 10 % topical cleanser RxNorm: 369628 Apply 1 Application Topical QD apply to face, wash rinse and dry once daily (may change to QOD if drying) 08/19/19 22 022 Inactive (%covered by insurance) #60ml refill 11 dx: acne benzoyl peroxide 10 % topical cleanser RxNorm: 466394 Apply 1 Application Topical QD apply to face, wash rinse and dry once daily (may change to QOD if drying) 08/19/19 22 022 Inactive (%covered by insurance) #60ml refill 11 dx: acne Lyrica 50 mg capsule RxNorm: 725426 Take 1 Capsule(s) Oral QAM every morning Take 1 capsule by mouth once daily 08/19/19 22 022 Inactive benzoyl peroxide 10 % topical cleanser RxNorm: 791621 Apply 1 Application Topical QD apply to face, wash rinse and dry once daily (may change to QOD if drying) 08/19/19 22 022 Inactive (%covered by insurance) #60ml refill 11 dx: acne Lyrica 100 mg capsule RxNorm: 378025 Take 1 Capsule(s) Oral QHS every night at bedtime Take 1 capsule by mouth once daily at bedtime 08/19/19 22 022 Inactive Lyrica 100 mg capsule RxNorm: 899680 Take 1 Capsule(s) Oral QHS every night at bedtime Take 1 capsule by mouth once daily at bedtime 08/16/19 Inactive Lyrica 50 mg capsule RxNorm: 686715 Take 1 Capsule(s) Oral QAM every morning Take 1 capsule by mouth once daily 08/16/19 22 Inactive Levemir FlexTouch U-100 Insulin 100 unit/mL (3 mL) subcutaneous pen RxNorm: 118478 Inject 86 Unit(s) Subcutaneous BID 08/05/19 22 022 Inactive d/c 83units BID Lyrica 100 mg capsule RxNorm: 518151 Take 1 Capsule(s) Oral QHS every night at bedtime Take 1 capsule by mouth once daily at bedtime 07/14/19 22 022 Inactive Lyrica 50 mg capsule RxNorm: 588132 Take 1 Capsule(s) Oral QAM every morning Take 1 capsule by mouth once daily 07/14/19 22 Inactive Levemir FlexTouch U-100 Insulin 100 unit/mL (3 mL) subcutaneous pen RxNorm: 472481 Inject 83 Unit(s) Subcutaneous BID 07/08/19 22 [...] test strip hydralazine 50 mg tablet RxNorm: 430659 Take 1 Tablet(s) Oral QID 05/05/20 21 Inactive venlafaxine ER 225 mg tablet,extended release 24 hr RxNorm: 238946 Take 1 Tablet(s) Oral QD 05/05/20 21 Inactive venlafaxine ER 225 mg tablet,extended release 24 hr RxNorm: 437443 Take 1 Tablet(s) Oral QD 05/05/20 21 022 Inactive isosorbide mononitrate ER 30 mg tablet,extended release 24 hr RxNorm: 711977 Take 1 Tablet(s) Oral QD 05/05/20 024 Inactive hydralazine 50 mg tablet RxNorm: 919345 Take 1 Tablet(s) Oral QID 05/05/20 21 021 Inactive aspirin 81 mg tablet,delayed release RxNorm: 319542 Take 1 Tablet(s) Oral QD 03/31/20 022 Inactive Vitamin D2 1,250 mcg (50,000 unit) capsule RxNorm: 1055823 Take 1 Capsule(s) Oral QW once a week x 12 weeks 03/31/20 Inactive Vitamin D2 1,250 mcg (50,000 unit) capsule RxNorm: 1672055 Take 1 Capsule(s) Oral QW once a week 03/31/20 021 Inactive Zetia 10 mg tablet RxNorm: 755963 Take 1 Tablet(s) Oral QD 03/31/20 024 Inactive Zetia 10 mg tablet RxNorm: 546305 Take 1 Tablet(s) Oral QD 03/31/20 021 Inactive hydralazine 25 mg tablet RxNorm: 177321 Take 1 Tablet(s) Oral QID 03/31/20 21 021 Inactive hydralazine 25 mg tablet RxNorm: 750761 Take 1 Tablet(s) Oral QID 03/31/20 021 Inactive hydralazine 10 mg tablet RxNorm: 262218 Take 1 Tablet(s) Oral QID 03/03/20 21 021 Inactive cephalexin 500 mg tablet RxNorm: 596723 Take 1 Tablet(s) Oral QID 02/27/20 21 021 Inactive cephalexin 500 mg tablet RxNorm: 828721 Take 1 Tablet(s) Oral QID 02/27/20 021 Inactive lisinopril 40 mg tablet RxNorm: 761102 Take 1 Tablet(s) Oral QD 02/11/20 023 Inactive Eliquis 5 mg tablet RxNorm: 4344941 Take 1 Tablet(s) Oral BID 01/05/20 21 025 Inactive Eliquis 5 mg tablet RxNorm: 9212985 Take 2 Tablet(s) Oral QD 01/01/20 21 021 Inactive Lyrica 50 mg capsule RxNorm: 809200 Take 1 Capsule(s) Oral QAM every morning 12/24/19 21 021 Inactive Lyrica 100 mg capsule RxNorm: 380215 Take 1 Capsule(s) Oral QHS every night at bedtime 12/24/19 021 Inactive clotrimazole 1 % topical cream RxNorm: 423292 Apply to right foot and toes Topical BID 12/04/19 21 023 Inactive metoprolol succinate ER 200 mg tablet,extended release 24 hr RxNorm: 391365 Take 1 Tablet(s) Oral QD 12/04/19 023 Inactive ciprofloxacin 500 mg tablet RxNorm: 760075 Take 1 Tablet(s) Oral QD 11/30/19 21 021 Inactive DX ofloxacin otic drops Accu-Chek Guide test strips RxNorm: USE 1 TO CHECK GLUCOSE 4 TIMES DAILY AND NEEDED 11/15/19 21 023 Inactive Blood Glucose Test strips RxNorm: Use 1 Test Strip QID at PRN 11/05/19 21 023 Inactive E11.42 lisinopril 30 mg tablet RxNorm: 544223 Take 1 Tablet(s) Oral QD 10/30/19 021 Inactive lisinopril 20 mg tablet RxNorm: 082900 Take 1 Tablet(s) Oral QD 10/23/19 21 021 Inactive lisinopril 20 mg tablet RxNorm: 794103 Take 1 Tablet(s) Oral QD 10/23/19 21 021 Inactive lisinopril 10 mg tablet RxNorm: 852623 Take 1 Tablet(s) Oral QD 10/02/19 21 021 Inactive icosapent ethyl 1 gram capsule RxNorm: 5726650 Take 2 Capsule(s) (2 gm) Oral BID with meals 09/12/19 024 Inactive Okay to dispense one 2gm tab if you have that available. icosapent ethyl 1 gram capsule RxNorm: 1438326 Take 2 Capsule(s) Oral BID 09/12/19 21 021 Inactive Okay to dispense one 2gm tab if you have that available. amlodipine 10 mg tablet RxNorm: 259223 Take 1 Tablet(s) Oral QD 09/04/19 21 021 Inactive aspirin 81 mg tablet,delayed release RxNorm: 528210 Take 1 Tablet(s) Oral QD 09/04/19 21 021 Inactive Levemir FlexTouch U-100 Insulin 100 unit/mL (3 mL) subcutaneous pen RxNorm: 360611 Inject 150 Unit(s) Subcutaneous BID 09/04/19 21 022 Inactive venlafaxine ER 150 mg tablet,extended release 24 hr RxNorm: 426470 Take 1 Tablet(s) Oral QD 09/04/19 21 021 Inactive clotrimazole-betame thasone 1 %-0.05 % topical cream RxNorm: 975931 Apply to rash on red area on left abdomen/chest Topical BID 08/10/19 21 021 Inactive amlodipine 5 mg tablet RxNorm: 776245 Take 1 Tablet(s) Oral QD 07/31/19 21 021 Inactive cephalexin 500 mg tablet RxNorm: 926601 Take 1 Tablet(s) Oral BID BID - Twice Daily 07/31/19 21 021 Inactive Start 08/01/20 pantoprazole 40 mg tablet,delayed release RxNorm: 173435 Take 1 Tablet(s) Oral QAM every morning 07/08/19 21 025 Inactive clopidogrel 75 mg tablet RxNorm: 037969 Take 1 Tablet(s) Oral QD 07/08/19 21 021 Inactive Blood Glucose Test strips RxNorm: Use 1 Test Strip QID at PRN 07/08/19 21 021 Inactive E11.42 senna 8.6 mg tablet RxNorm: 843340 Take 1 Tablet(s) Oral QD 07/08/19 21 025 Inactive Novolog Flexpen U-100 Insulin aspart 100 unit/mL (3 mL) subcutaneous RxNorm: 9142068 Administer per sliding scale Milliliter(s) Subcutaneous TID 151-200: 10 u; 201-250: 20 u; 251-300: 30 u; 301-350: 40 u; 351-400: 50 u. 07/08/19 022 Inactive lisinopril 5 mg tablet RxNorm: 263675 Take 1 Tablet(s) Oral QD 07/08/19 021 Inactive Novolog Flexpen U-100 Insulin aspart 100 unit/mL (3 mL) subcutaneous RxNorm: 7365543 Inject 85 Unit(s) Subcutaneous TID 07/08/19 022 Inactive pravastatin 80 mg tablet RxNorm: 924887 Take 1 Tablet(s) Oral QHS every night at bedtime 07/08/19 023 Inactive clotrimazole 1 % topical cream RxNorm: 192483 Apply to bilateral groin areas Topical BID 07/08/19 022 Inactive metoprolol succinate ER 200 mg tablet,extended release 24 hr RxNorm: 164706 Take 1 Tablet(s) Oral QD 07/08/19 021 Inactive Vitamin D3 25 mcg (1,000 unit) tablet RxNorm: 137419 Take 1 Tablet(s) Oral QD 07/08/19 021 Inactive isosorbide dinitrate 30 mg tablet RxNorm: 724330 Take 1 Tablet(s) Oral QD 07/08/19 21 021 Inactive carbamazepine 200 mg tablet RxNorm: 115680 Take 1 Tablet(s) Oral BID 07/08/19 025 Inactive Levemir FlexTouch U-100 Insulin 100 unit/mL (3 mL) subcutaneous pen RxNorm: 361481 Inject 140 Unit(s) Subcutaneous BID 07/08/19 021 Inactive torsemide 20 mg tablet RxNorm: 812106 Take 1 Tablet(s) Oral QD 07/08/19 21 023 Inactive venlafaxine 75 mg tablet RxNorm: 812415 Take 1 Tablet(s) Oral QD 07/08/19 21 021 Inactive acetaminophen 500 mg tablet RxNorm: 567160 Take 1 Tablet(s) Oral TID as needed for headache 06/18/19 21 021 Inactive acetaminophen 500 mg tablet RxNorm: 212911 Take 1 Tablet(s) Oral TID as needed for headache 06/18/19 21 021 Inactive Lyrica 100 mg capsule RxNorm: 846067 Take 1 Capsule(s) Oral QHS every night at bedtime 06/11/19 21 021 Inactive Lyrica 50 mg capsule RxNorm: 267919 Take 1 Capsule(s) Oral QAM every morning 06/10/19 21 021 Inactive hydrocortisone 2.5 % topical cream RxNorm: 012303 Apply to bilateral groin creases Topical BID 05/15/20 20 021 Inactive clotrimazole 1 % topical cream RxNorm: 679199 Apply to bilateral groin areas Topical BID 05/15/20 20 021 Inactive Lyrica 50 mg capsule RxNorm: 409486 Take 1 Capsule(s) Oral QAM every morning 05/14/20 20 020 Inactive Lyrica 100 mg capsule RxNorm: 233981 Take 1 Capsule(s) Oral QHS every night [...] Inactive Nystop 100,000 unit/gram topical powder RxNorm: 042708 Apply to abd folds, under breasts and L side of groin Topical BID x 14 days, then BID PRN 04/08/20 20 020 Inactive dx: yeast dermatitis Lyrica 100 mg capsule RxNorm: 624348 Take 1 Capsule(s) Oral QHS every night at bedtime 03/13/20 20 Inactive Lyrica 50 mg capsule RxNorm: 960722 Take 1 Capsule(s) Oral QAM every morning 03/13/20 20 Inactive ketoconazole 2 % shampoo RxNorm: 896504 Apply Topical two times a week with showers 03/11/20 20 024 Inactive cholecalciferol (vitamin D3) 50 mcg (2,000 unit) tablet RxNorm: 623789 Take 1 Tablet(s) Oral QD 03/11/20 20 021 Inactive Zetia 10 mg tablet RxNorm: 985178 Take 1 Tablet(s) Oral QD 03/07/20 20 021 Inactive Zetia 10 mg tablet RxNorm: 349907 Take 1 Tablet(s) Oral QD 03/07/20 20 020 Inactive Lyrica 50 mg capsule RxNorm: 861900 Take 1 Capsule(s) Oral QAM every morning 02/15/20 20 020 Inactive Lyrica 100 mg capsule RxNorm: 381910 Take 1 Capsule(s) Oral QHS every night at bedtime 02/15/20 20 Inactive Lyrica 100 mg capsule RxNorm: 183648 Take 1 Capsule(s) Oral QHS every night at bedtime 02/15/20 20 020 Inactive Lyrica 50 mg capsule RxNorm: 241535 Take 1 Capsule(s) Oral QAM every morning 02/15/20 20 Inactive venlafaxine ER 75 mg capsule,extended release 24 hr RxNorm: 225843 Take 3 Capsule(s) Oral QD 06/12/19 22 023 Inactive polyethylene glycol 3350 17 gram/dose oral powder RxNorm: 900382 Take 17=1 capful Gram(s) Oral BID as needed mix with 4-8oz of liquid 06/12/19 22 024 Inactive icosapent ethyl 1 gram capsule RxNorm: 7961776 Take 2 Capsule(s) (2 gm) Oral BID with meals 10/07/19 23 023 Inactive Okay to dispense one 2gm tab if you have that available. Levemir FlexTouch U-100 Insulin 100 unit/mL (3 mL) subcutaneous pen RxNorm: 770278 Inject 80 Unit(s) Subcutaneous BID 07/14/19 23 023 Inactive metoprolol succinate ER 200 mg tablet,extended release 24 hr RxNorm: 156369 Take 1 Tablet(s) Oral QD 08/12/19 025 Inactive loperamide 2 mg capsule RxNorm: 760005 Take 1 Capsule(s) Oral QID as needed 09/06/19 025 Inactive hydralazine 50 mg tablet RxNorm: 639030 Take 1 Tablet(s) Oral QID 08/12/19 025 Inactive Soft Touch Lancets RxNorm: miscellaneous 03/04/20 24 025 Inactive Novolog Flexpen U-100 Insulin aspart 100 unit/mL (3 mL) subcutaneous RxNorm: 9409266 Insert 30 Unit(s) Subcutaneous TID with meals 10/08/19 022 Inactive Medication Administered No Medication Administered data Immunizations Vaccine Codes Dose Date Status Covid-19 (Adult) CVX: 213 04/17/2024 Influenza CVX: 140 04/17/2024 Covid-19 (Adult) Unknown 06/02/2023 Influenza Unknown 06/02/2023 Zostavax CVX: 187 03/24/2022 Zoster CVX: 187 03/24/2022 Tdap CVX: 115 02/12/2022 Tetanus, Diptheria, Pertussis CVX: 115 2021 Covid-19 (Adult) CVX: 207 0.25 06/18/2021 Complete Influenza Unknown 05/29/2021 Covid-19 Unknown 06/25/2020 Covid-19 CVX: 208 06/04/2020 Covid-19 CVX: 208 06/04/2020 Influenza CVX: 140 05/07/2020 Influenza CVX: 140 02/13/2019 Hepatitis B CVX: 43 02/16/2014 Hepatitis B CVX: 43 10/12/2013 Hepatitis B CVX: 43 03/14/2013 Tdap CVX: 115 05/07/2009 Tetanus, Diptheria, Pertussis CVX: 115 2008 Medical Equipment No Medical Equipment data Assessments Condition Codes Effective Dates Notes Lower extremity edema ICD-10: R60.0 ICD-9: 782.309/ note foundSimple chronic bronchitisSNOMED: 42238050 ICD-10: J41.0 ICD-9: 491.009/ note foundDiabetic neuropathy associated with type 2 diabetes mellitusICD-10: E11.40 ICD-9: 250.6009/ note foundOSA (obstructive sleep apnea)ICD-10: G47.33 ICD-9: 327.2309/No note foundPoor dental hygieneSNOMED: 966757748 ICD-10: Z91.89 ICD-9: 525.809/No note foundCoronary artery disease involving [place] coronary artery of [place] heart, angina presence unspecifiedICD-10: I25.10 ICD-9: 414.0109/ note found Reason For Visit No Reason For Visit data Review of Systems No Review of Systems data Physical Exam No Physical Exam data Functional Status Functional / Cognitive Codes Status [...] Other: Miesha pping, Finances, Housekeeping, Dependent 02/08/2024 History of Present Illness No History of Present Illness data Advance Directives Filename Date Full Code Polst 01/03/2025 POLST 10/06/2022 Full Code 12/31/2020 Encounters Encounter Performer Location Location Address Codes Cristiano e ([id number]) Home Visit - Est Pt, moderate Diagnosis: Poor dental hygiene[SNOMED: 124251108] Diagnosis: Coronary artery disease involving [place] coronary artery of [place] heart, angina presence unspecified[ICD10: I25.10] Diagnosis: Diabetic neuropathy associated with type 2 diabetes mellitus[ICD10: E11.40] Diagnosis: TASHI (obstructive sleep apnea)[ICD10: G47.33] Diagnosis: Simple chronic bronchitis[SNOMED: 71164935] Diagnosis: Lower extremity edema[ICD10: R60.0]Andressa [facility]hengOhio [facility] Hospitalge [facility] [address] [place] [id number]-0: [id number] Plan of Care Planned Activity Notes Codes Status Date Appointment: Brian Munson WPtel: [address] [place], [place] [id number] USF/U001/09/2025Referral: [facility]/Imaging WPtel: [address] [facility] USReferralNo Records Hrdztgzm98/06/2025ppointment: Harrison Munson WPtel: [address] USF/U008/08/2024ppointment: Harrison Munson WPtel: [address] USF/U007/11/2024Referral: [facility]/Endocrinology WPtel: 9[address] [facility] 3 NriiiyexrmpDP[address] USReferralNo Records Xtpmsskb78/24/2025ppointment: Harrison Munson WPtel: [address] [place], [place] [id number] USAWV09/ppointment: Harrison Munson WPtel: 270 [facility] 300 [id number] USF/U001/11/2024ppointment: Sandra Clark WPtel: 270 [facility] 300 [id number] [facility] Up12/09/2022ppointment: Rosalina Shirley WPtel: 270 [facility] 300 [id number] USTCM10/26/2022Referral: [facility] WPtel: [address], [address] [id number] USReferralRecords Wbaiuoqn50/08/2023ppointment: Rosalina Shirley WPtel: [address] [place] [address] [id number] USF/U008/11/2022ppointment: Rosalina Shirley WPtel: [address] [place] [address] 300 [id number] USF/U007/14/2022ppointment: Rosalina Shirley WPtel: [address] [place] [address] 300 [id number] USF/U02Referral: [facility] WPtel: [address] [id number] ZBEymdlyblGcgsendin44/12/2022Referral: General CardiologyReferralCompleted 1Referral: General PsychologistReferralClosedReferral: General PsychiatristReferralPatient/Family Scheduling AppointmentReferral: [facility] WPtel: [id number] USReferralFacility Scheduling AppointmentReferral: General Physical Medicine ReferralFacility Scheduling Appointment Health Concerns Section Concern Status Date (N18.31-585.3) CKD stage 3a, GFR 45-59 ml/min Ac tive 01/09/2025 (G47.33-327.23) TASHI (obstructive sleep apnea) Ac tive 12/21/2024 (N39.46-788.33) Mixed incontinence Active 12/21/2024 (Z00.00-V70.0) Annual physical exam Active 02/08/2024 (L60.2-703.8) Onychogryposis Active (L89.890-707.09) Pressure ulcer of left calf, un stageable Active 01/11/2024 (M54.50-724.2) Low back pain Active (R53.81-799.3) Physical deconditioning Active 01/11/2024 (R60.0-782.3) Lower extremity edema Active 01/11/2024 (E11.22-250.40) Stage 2 piping supervisor александр 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 Active 12/14/2023 (E55.9-268.9) Vitamin D deficiency Active 12/14/2023 (I11.9-402.90) Hypertensive heart disease withou t heart failure Active 12/14/2023 (K59.01-564.01) Constipation by delayed colonic transit Active 12/14/2023 (Z86.718-V12.51) Hx of deep venous thrombosis Ac tive 12/14/2023 (E87.6-276.8) Hypokalemia Active 2023 (F33.9-296.30) Major depression, recurrent Activ e 11/09/2023 (I73.9-443.9) PVD (peripheral vascular disease) Active 11/09/2023 (B37.2-112.3) Candidal intertrigo Active 10/12/2023 (F81.9-315.2) Learning disability Active 10/12/2023 (G40.909-345.90) Seizure disorder Active 10/12/2023 (G82.20-344.1) Paraparesis of both lower limbs A ctive 10/12/2023 (K42.9-553.1) Reducible umbilical hernia Active 10/12/2023 (N18.9-585.9) History of anemia due to CKD Activ e 10/12/2023 (Z68.44-V85.44) BMI 60.0-69.9, adult Active 10/12/2023 (D68.59-289.81) Hypercoagulable state Active 09/07/2023 (E11.40-250.60) Diabetic sriram ropathy associated with type 2 diabetes mellitus Active 09/07/2023 (E11.42-250.60) Type 2 diabe merced mellitus with diabetic polyneuropathy, with long-term current use of insulin Active 09/07/2023 (E11.69-250.80) Hyperlipidem ia associated with type 2 diabetes mellitus Active 09/07/2023 (F33.41-296.35) Recurrent ma bijal depressive disorder, in partial remission Active 09/07/2023 (S98.131A-895.0) Amputated toe of right foot Act annie 09/07/2023 No Related Observations Available Goals Section Goals Value Date Treatment Goal: Maintain stable renal function. Avoid YARED episodes.Desired Outcome: Control BP as appropriate for age,.Avoid nephrotoxic medications. Renal dose medications as appropriate.Prognosis: GoodThe patient or their caregiver should notify the primary care team of symptoms such as: signs of dehydration, fluid overload, urinary changes. Unknown 01/09/2025 Treatment Goal: Avoid UTI an d skin breakdown related to incontinenceDesired Outcome: Control with minimal medications, use of timed toileting and frequent brief changes. Prognosis: GoodThe patient or their caregiver should notify the primary care team of symptoms such as: burning with urination, foul odor to the urine, blood in the urine. Unknown 12/21/2024 Treatment Goal: Compliance w ith CPAP/BIPAP for at least 4 hours per night.Desired Outcome: Improve quality of sleep, improve daytime drowsiness, and reduce risk associated with TASHI including CVD. Prognosis: FairThe patient or their caregiver should notify the primary care team of symptoms such as: Increased drowsiness during day, insomnia, complications or poor compliance with CPAP/BIPAP Unknown 12/21/2024 Seizures controlled with low est effective dose of medication.Treatment Goal: Epilepsy is a chronic condition. Patient's goal is to remain seizure free. Prognosis: Condition is chronic, but good prognosis for this patient. The patient or their caregiver should notify the primary care team of symptoms such as: signs of seizure-like activity, changes in mental status or signs of medication toxicity Unknown 11/08/19 Treatment Goal: serum potass ium WNLDesired Outcome: stable serum potassium without hypokalemia eventsPrognosis: fairThe patient or their caregiver should notify the primary care team of symptoms such as: chest pain, palpitations Unknown 09/05/2024 Treatment Goal: Maintain a regular pattern of bowel function while minimizing symptoms. Desired Outcome: Regular bowel movements Prognosis: Good The patient or their caregiver should notify the primary care team of symptoms such as: worsening constipation, loose stools, abdominal distension/pain/nausea/vomiting. Unknown 09/05/2024 Treatment Goal: Maintain sta ble hemoglobin/hematocrit levels while avoiding/minimizing relative complications.Desired Outcome: Prevent dizziness and lightheadedness leading to falls and subsequent injuries, due to anemia.Prognosis: GoodThe patient or their caregiver should notify the primary care team of symptoms such as: S&S of pallor, SOB, palpitations, or increased fatigue. Treatment Goal: Maintain stable renal function. Avoid YARED episodes.Desired Outcome: Control BP as appropriate for age,.Avoid nephrotoxic medications. Renal dose medications as appropriate.Prognosis: GoodThe patient or their caregiver should notify the primary care team of symptoms such as: signs of dehydration, fluid overload, urinary changes. Unknown 07/11/2024 Peripheral edema is a chroni c and often progressive condition, that can be well managed with elevation and compression of the affected limbs. The treatment goal is to minimize swelling to achieve an outcome of stable mobility, minimal discomfort, and no wounds.The patient or their caregiver should notify the primary care team for changes in symptoms including an increase in swelling, changes to the color of the skin, increased pain or heaviness of the limb(s), new wounds or skin injuries.Minimize discomfort associated with edema. - Early identification of skin breakdown. Unknown 06/13/2024 Peripheral edema is a chroni c and often progressive condition, that can be well managed with elevation and compression of the affected limbs. The treatment goal is to minimize swelling to achieve an outcome of stable mobility, minimal discomfort, and no wounds. The patient or their caregiver should notify the primary care team for changes in symptoms including an increase in swelling, changes to the color of the skin, increased pain or heaviness of the limb(s), new wounds or skin injuries. Unknown 06/13/2024 This patient's obesity has b een chronic. Goal weight loss of 20+ lbs. Prognosis is fair given the impact of her underlying mental health and limited insight. Encourage healthy lifestyle choices - Diet: fewer carbohydrates/sugars, more fruits/vegetables, Activity: more exercise, as patient able. Will continue to monitor WT, BP, HR, and watch for comorbidities. Monitor for complications including diabetes, heart disease, wounds, etc. Unknown 06/13/2024 Treatment Goal: Minimal depr essive symptoms and optimal daily functioning.Desired Outcome: Improved mood and quality of life on lowest effective dose(s) of anti-depressant Prognosis: GoodThe patient or their caregiver should notify the primary care team of symptoms such as: increased sadness, isolation, reports of suicidal thoughts, self harm. Unknown 06/13/2024 Treatment Goal: Minimal depr essive symptoms and optimal daily functioning.Desired Outcome: Improved mood and quality of life on lowest effective dose(s) of anti-depressant Prognosis: GoodThe patient or their caregiver should notify the primary care team of symptoms such as: increased sadness, isolation, reports of suicidal thoughts, self harm. Unknown 06/13/2024 Treatment Goal: Maintain safety and supportive care to reduce fall risk Desired Outcome: No falls or injuries sustained from falls Prognosis: Good The patient or their caregiver should notify the primary care team of symptoms such as: falls Unknown Treatment Goal: Minimize fall risks, manage pain effectively and monitor skin integrity. Desired Outcome: Minimal pain, no skin integrity disruption Prognosis: Good The patient or their caregiver should notify the primary care team of symptoms such as: falls, change in skin integrity. Unknown 06/13/2024 Treatment Goal: Maintain A1C < 8%. Avoid hypoglycemia. Minimize the risk for end organ damage due to hyperglycemia.Desired Outcome: A1c <8% on lowest effective dose of insulin, increased lifestyle modifications (exercise, healthy dietary intake, water intake)Prognosis: GoodThe patient or their caregiver should notify the primary care team of symptoms such as: BG <70 and BG >400 (if monitoring). S&S diaphoresis, lightheadedness, increased urination/thirst/hunger, skin breakdown/wounds. Unknown 2023 Treatment Goal: Maintain blo od pressure at or below goal of 140/90. Avoid hypotension to minimize fall risk.Desired Outcome: BP within goal range, with no adverse side effects Prognosis: Good. The patient or their caregiver should notify the primary care team of symptoms such as: chest pain, palpitations, shortness of breath, lightheadedness, lower extremity edema, falls. Unknown 04/11/2024 Treatment Goal: Maintain appropriate lipid levels, given patient's age, through diet control and medication if warranted.Desired Outcome: Tolerate statin with no/minimal side effects. Reduce risk of cardiovascular complications by controlling lipid levels.Prognosis: GoodThe patient or their caregiver should notify the primary care team of symptoms such as: myalgias Unknown Treatment Goal: Maintain stable renal function. Avoid YARED episodes.Desired Outcome: Control BP as appropriate for age,.Avoid nephrotoxic medications. Renal dose medications as appropriate.Prognosis: GoodThe patient or their caregiver should notify the primary care team of symptoms such as: signs of dehydration, fluid overload, urinary changes. Unknown 04/11/2024 Remain up to date on prevent annie care. Unknown 02/08/2024 Improved skin integrity. Unknown 024 Increase strength and physical ability. Unknown 01/11/2024 Optimize pain control, enhan ce physical / social functioning and comfort Unknown 01/11/2024 PRN toenail debridement per PCP. Avoid infection and ingrown toenails. Unknown 01/11/2024 Maintain normal vitamin D levels Unknown 12/14/2023 No further signs/symptoms DV T. Physical activity daily as able. Unknown 12/14/2023 Maintain safety and in suppo rtive environment. Unknown 10/12/2023 Monitor for skin breakdown. Encourage appropriate communication with female staff. Unknown 10/12/2023 Monitor for symptoms and man age as warranted. Unknown 10/12/2023 - monitor for skin breakdown , ensure proper hygiene practices, avoid infection Unknown 09/07/2023 Monitor for signs and sympto ms of thrombus. Unknown 09/07/2023
--- OUTSIDE RECORDS SUMMARY | 2025-03-04 18:00 | XMS_ITS | CCD ---
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 Unknown No [...] Unknown Alf 09/03/[address]: 760432034 No Alcohol Consum ption 09/02/2020 Allergies, Adverse Reactions, Alerts Substance Reaction Codes Entered Date Inactivated Date Status * NO KNOWN FOOD ALLERGIES Fgimthk3307/13/2023No Inactive DateActiveLISINOPRILRxNorm: 327471502/12/2020No Inactive DateActiveMetformin IGgWbigetz01/28/2020No Inactive DateActive* NO KNOWN ENVIRONMENTAL TWDPXSFUHAgtotti89/27/2024No Inactive DateActive Past Medical History Illness Codes Condition Status Onset Date Resolved Date Coronary artery disease invo lving [place] coronary artery of [place] heart, angina presence unspecified ICD-10: I25.10 ICD-9: 414.85Qbkxam87/23/2025UnknownDiabetic neuropathy associated with type 2 diabetes mellitusICD-10: E11.40 ICD-9: 250.30Yxugtc14Lower extremity edemaICD-10: R60.0 ICD-9: 782.4Jikifr4602/06/2025UnknownOSA (obstructive sleep apnea)ICD-10: G47.33 ICD-9: 327.07Ekgecp32/23/2025UnknownPoor dental hygieneSNOMED CT: 429824661 ICD-10: Z91.89 ICD-9: 525.2Vgmudn1702/06/2025UnknownSimple chronic bronchitisSNOMED CT: 13718595 ICD-10: J41.0 ICD-9: 491.0Capbes9502/06/2025UnknownCKD stage 3a, GFR 45-59 ml/[address]: 041133197 ICD-10: N18.31 ICD-9: 585.0Ttlzmw79Hypertensive heart disease without heart failureICD-10: I11.9 ICD-9: 402.82Sikkdm14/26/2025UnknownOnychogryposisICD-10: L60.2 ICD-9: 703.3Oyzgfq9401/09/2025UnknownType 2 diabetes mellitus with diabetic chronic kidney diseaseICD-10: E11.22 ICD-9: 250.38Rrfywr83/26/2025UnknownBody mass index [BMI] 60.0-69.9, adultICD- 10: Z68.44 ICD-9: V85.24Hhxdkv75/07/2025UnknownHistory of recent hospitalizationSNOMED CT: 391571993 ICD-10: Z92.89 ICD-9: V13.8Pbkwaz1412/21/2024UnknownHypokalemiaICD-10: E87.6 ICD-9: 276.9Lnttxf8612/21/[address]enceSNOMED CT: 93755480 ICD-10: N39.46 ICD-9: 788.40Pjdevz14/07/2025UnknownType 2 diabetes mellitus with diabetic polyneuropathy, with long-term current use of insulinICD-10: E11.42 ICD-9: 250.94Trppqd05/07/2025UnknownCandidal intertrigoICD-10: B37.2 ICD-9: 112.6Iqouin1712/12/2024UnknownPulmonary noduleICD-10: R91.1 ICD-9: 793.25Ajoegl34/29/2025UnknownConstipation by delayed colonic transitICD- 10: K59.01 ICD-9: 564.46Ltxycr27/24/2025UnknownLoose stoolsICD-10: R19.5 ICD-9: 787.9Gtuagm1911/07/2024UnknownParaparesis of both lower limbsICD-10: G82.20 ICD-9: 344.7Lhmxaf1511/07/2024UnknownSeizure disorderICD-10: G40.909 ICD-9: 345.82Dtwivr72/24/2025UnknownAmputated toe of right footICD-10: S98.131A ICD-9: 895.8Wqgrpi87/27/20240517/03/2025Hypercoagulable stateICD-10: D68.59 ICD-9: 289.53Lttnjx52/27/2025UnknownMajor depression, recurrentICD-10: F33.9 ICD-9: 296.78Xyzxuk61/27/2025UnknownRecurrent major depressive disorder, in partial remissionICD-10: F33.41 ICD-9: 296.33Kgggjf02/27/2025UnknownPressure ulcer of left calf, unstageableICD- 10: L89.890 ICD-9: 707.57Vxbmfbcz77/27/2025UnknownHemorrhoidsICD-10: K64.9 ICD-9: 455.0Adxnbk6607/11/2024UnknownPVD (peripheral vascular disease)ICD-10: I73.9 ICD-9: 443.4Hahmbh2907/11/2024UnknownHyperlipidemia associated with type 2 diabetes mellitusICD-10: E11.69 ICD-9: 250.49Bxjcmw63/28/2025UnknownAdvance care planningICD-10: Z71.89 ICD-9: V65.47Uvjolo43/03/2025Low back painICD-10: M54.50 ICD-9: 724.0Szyrwv6603/07/2024UnknownPhysical deconditioningICD-10: R53.81 ICD-9: 799.0Rywuus3203/07/2024UnknownAdvanced care planning - to document end of life kjdnhfvfwtoTxyigijEnvdka11/24/2024UnknownAnnual physical examICD-10: Z00.00 ICD-9: V70.5Pwmrjc61History of anemia due to CKDICD-10: N18.9 ICD-9: 585.3Frhuft4802/08/2024UnknownHx of deep venous thrombosisICD-10: Z86.718 ICD-9: V12.21Pjvmmj32/24/2024UnknownLearning disabilityICD-10: F81.9 ICD-9: 315.7Skbosw0102/08/2024UnknownReducible umbilical herniaICD-10: K42.9 ICD-9: 553.7Nnitya8502/08/2024UnknownVitamin D deficiencyICD-10: E55.9 ICD-9: 268.7Jkniey8902/08/2024UnknownCallus of heelICD-10: L84 ICD-9: 081Wymwgham09/28/2024UnknownGout due to renal impairmentICD-10: M10.30 ICD-9: 274.71Lrelsptz01/28/2024UnknownHyperhidrosis of palmsICD-10: L74.512 ICD-9: 705.21Rkplabxs62/28/2024UnknownHyperlipidemia, unspecifiedICD-10: E78.5 ICD-9: 272.2Yfubwaah71/28/2024UnknownOther watermelon inspector (current) drug therapyICD- 10: Z79.899 ICD-9: V58.62Dvguyefn08/28/2024UnknownPain of right heelICD-10: M79.671 ICD-9: 729.7Fsmukajo46/28/2024UnknownStage 2 chronic kidney diseaseICD-10: N18.2 ICD-9: 585.4Bjvbmmby56/28/2024UnknownTinea pedis of both feetICD-10: B35.3 ICD-9: 110.9Vnpldqfr87/28/2024UnknownCellulitisICD-10: L03.90 ICD-9: 682.4Xouuvzho64/23/2024UnknownDandruff in adultICD-10: L21.0 ICD-9: 690.57Drymnxyz88/23/2024UnknownEncounter for other specified special examinationsICD-10: Z01.89 ICD-9: V72.86Ypwwuexx75/23/2024UnknownEncounter for screening for nutritional disorderICD-10: Z13.21 ICD-9: V77.71Xvwadzfl27/23/2024UnknownImpacted cerumen, left earICD-10: H61.22 ICD-9: 380.9Lqymkmpb43/23/2024UnknownShortness of breathICD-10: R06.02 ICD-9: 786.40Dcbdnhsc23/23/2024UnknownSkin tagICD-10: L91.8 ICD-9: 701.8Oqaemobi60/23/2024UnknownInappropriate sexual behaviorICD-10: Z72.89 ICD-9: 312.61Jucgao85/18/2023UnknownPre-op evaluationICD-10: Z01.818 ICD-9: V72.31Sdmnzz07/28/2023UnknownSecondary hypertensionICD-10: I15.9 ICD-9: 405.49Ycbzbw30/28/2023UnknownDepressionICD-10: F32.9 ICD-9: 920Vofcqeso06UnknownDVT (deep venous thrombosis)ICD-10: I82.409 ICD-9: 453.84Wazeutbi34/27/2022UnknownEncounter for immunizationICD-10: Z23 ICD-9: V03.33Ptdcwxkv54/27/2022UnknownLong term (current) use of insulinICD-10: Z79.1Pzlbwinf48/27/2022UnknownMuscular painICD-10: M79.10 ICD-9: 729.1Icwlbvrp75/27/2022UnknownHypertension associated with diabetesICD- 10: E11.59 ICD-9: 250.93Iiwkjkkj93/23/2022UnknownContact with and (suspected) exposure to fjqqp-78MTN-70: Z20.822 ICD-9: V01.60Slxyeeol43/17/2021UnknownOther infective acute otitis externa of left earICD-10: H60.392 ICD-9: 380.23Ntnfltgq04/17/2021UnknownScrotal skin lesionICD-10: N50.9 ICD-9: 608.7Zfclmjmd58/17/2021UnknownAnemia due to stage 3b chronic kidney diseaseICD-10: N18.32 ICD-9: 285.70Hfzwxanh03/18/2021UnknownChronic kidney disease, stage 3 unspecifiedICD-10: N18.80Guulgxrz36/20/2021UnknownContact with and (suspected) exposure to other viral communicable diseasesICD-10: Z20.828 ICD-9: V01.67Dvxmcehu062467IpwlwziVsqndpgaOwgdkzaCnnrba98/28/2020Unknown Diabetes mellitus Type 7YqpdjjfIvrqfw99/28/2020UnknownAnemia in chronic kidney diseaseICD-10: D63.9Zpietzcc58/28/2020UnknownHyperlipidemia, unspecifiedICD-10: E78.9Zcfbhqpu26/28/2020Unknown Problems Condition Codes Effective Dates Condition St atus Coronary artery disease invo lving [place] coronary artery of [place] heart, angina presence unspecified ICD-10: I25.10 ICD-9: 414.0109/5ActiveDiabetic neuropathy associated with type 2 diabetes mellitusICD-10: E11.40 ICD-9: 250.6009/5ActiveLower extremity edemaICD-10: R60.0 ICD-9: 782.309/5ActiveOSA (obstructive sleep apnea)ICD-10: G47.33 ICD-9: 327.2309/5ActivePoor dental hygieneSNOMED CT: 523972530 ICD-10: Z91.89 ICD-9: 525.809/5ActiveSimple chronic bronchitisSNOMED CT: 10303446 ICD-10: J41.0 ICD-9: 491.009/5ActiveCKD stage 3a, GFR 45-59 ml/minSNOMED CT: 555363628 ICD-10: N18.31 ICD-9: 585.308/5ActiveHypertensive heart disease without heart failureICD- 10: I11.9 ICD-9: 402.9008/5ActiveOnychogryposisICD-10: L60.2 ICD-9: 703.808/5ActiveType 2 diabetes mellitus with diabetic chronic kidney diseaseICD-10: E11.22 ICD-9: 250.4008/5ActiveBody mass index [BMI] 60.0-69.9, adultICD-10: Z68.44 ICD-9: V85.44085ActiveHistory of recent hospitalizationSNOMED CT: 635631406 ICD-10: Z92.89 ICD-9: V13.908/5ActiveHypokalemiaICD-10: E87.6 ICD-9: 276.8085ActiveMixed incontinenceSNOMED CT: 72370930 ICD-10: N39.46 ICD-9: 788.3308/5ActiveType 2 diabetes mellitus with diabetic polyneuropathy, with long-term current use of insulinICD-10: E11.42 ICD-9: 250.6008/5ActiveCandidal intertrigoICD-10: B37.2 ICD-9: 112.307/5ActivePulmonary noduleICD-10: R91.1 ICD-9: 793.1107/5ActiveConstipation by delayed colonic transitICD-10: K59.01 ICD-9: 564.0106/5ActiveLoose stoolsICD-10: R19.5 ICD-9: 787.706/tiveParaparesis of both lower limbsICD-10: G82.20 ICD-9: 344.106/5ActiveSeizure [...] painICD-10: M54.50 ICD-9: 724.210/4ActivePhysical deconditioningICD-10: R53.81 ICD-9: 799.310/22/2024ActiveAdvanced care planning - to document end of life gwdlazvusmjGdrllkw24ctiveAnnual physical examICD-10: Z00.00 ICD-9: V70.009ctiveHistory of anemia due to CKDICD-10: N18.9 ICD-9: 585.909ctiveHx of deep venous thrombosisICD-10: Z86.718 ICD-9: V12.5109ctiveLearning disabilityICD-10: F81.9 ICD-9: 315.209/ctiveReducible umbilical herniaICD-10: K42.9 ICD-9: 553.109ctiveVitamin D deficiencyICD-10: E55.9 ICD-9: 268.909ctiveCallus of heelICD-10: L84 ICD-9: 53826esolvedGout due to renal impairmentICD-10: M10.30 ICD-9: 274.1005esolvedHyperhidrosis of palmsICD-10: L74.512 ICD-9: 705.2105esolvedHyperlipidemia, unspecifiedICD-10: E78.5 ICD-9: 272.405esolvedOther care home (current) drug therapyICD-10: Z79.899 ICD-9: V58.6905esolvedPain [...] breathICD-10: R06.02 ICD-9: 786.0504/esolvedSkin tagICD-10: L91.8 ICD-9: 701.904/esolvedInappropriate sexual behaviorICD-10: Z72.89 ICD-9: 312.8910/3ActivePre-op evaluationICD-10: Z01.818 ICD-9: V72.8403/ctiveSecondary hypertensionICD-10: I15.9 ICD-9: 405.9903ctiveDepressionICD-10: F32.9 ICD-9: 83870/2ResolvedDVT (deep venous thrombosis)ICD-10: I82.409 ICD-9: 453.4009/2ResolvedEncounter for immunizationICD-10: Z23 ICD-9: V03.8909/2ResolvedLong term (current) use of insulinICD-10: Z79.4 2ResolvedMuscular painICD-10: M79.10 ICD-9: 729.1092ResolvedHypertension associated with diabetesICD-10: E11.59 ICD-9: 250.8008/2ResolvedContact with and (suspected) exposure to covid-19 ICD-10: Z20.822 ICD-9: V01.7908/1ResolvedOther infective acute otitis externa of left ear ICD-10: H60.392 ICD-9: 380.1008/esolvedScrotal skin lesionICD-10: N50.9 ICD-9: 608.908/17/2021ResolvedAnemia due to stage 3b chronic kidney diseaseICD- 10: N18.32 ICD-9: 285.21051ResolvedChronic kidney disease, stage 3 unspecifiedICD- 10: N18.3001ResolvedContact with and (suspected) exposure to other viral communicable diseasesICD-10: Z20.828 ICD-9: V01.79025591IlkusainGnhudsgbGfrzcqw90/28/2020ActiveDiabetes mellitus Type 4Mkloqts32/28/2020ActiveAnemia in chronic kidney diseaseICD-10: D63.1 02/12/2020ResolvedHyperlipidemia, unspecifiedICD-10: E78.Resolved Medications Medication Codes Instructions Start Date Stop Date Status Fill Instructions omeprazole 20 mg capsule,delayed release RxNorm: 355955 Take 1 Capsule(s) Oral QD 03/05/20 25 Active omeprazole 20 mg capsule,delayed release RxNorm: 580816 Take 1 Capsule(s) Oral QD 03/05/20 25 Inactive Calmoseptine 0.44 %-20.6 % topical ointment RxNorm: 5712351 apply topically to affected underarm and breast BID for 2 weeks then BID PRN. 03/01/20 25 026 Active Calmoseptine 0.44 %-20.6 % topical ointment RxNorm: 9361679 apply topically to affected underarm and breast BID for 2 weeks then BID PRN. 03/01/20 25 025 Inactive pregabalin 100 mg capsule RxNorm: 273774 1 CAPSULE BY MOUTH EVERY MORNING (DX: NEUROPATHY) 02/21/20 25 026 Active PLEASE SEND NEW RX, FACILITY IS REQUESTING MEDICATION. THANKS pregabalin 150 mg capsule RxNorm: 745958 1 CAPSULE BY MOUTH AT BEDTIME (DX: NEUROPATHY) 01/13/20 25 026 Active PLEASE SEND NEW RX, PATIENT IS ALMOST OUT. THANKS! clotrimazole 1 % topical cream RxNorm: 455931 apply one application to affected and surrounding area(s) of skin BID until clinical resolution (abdominal and thigh folds), typically 1-4 weeks.Pause nystatin powder use while using clotrimazole cream. 01/03/20 25 025 Inactive clotrimazole 1 % topical cream RxNorm: 635686 apply one application to affected and surrounding area(s) of skin BID until clinical resolution (abdominal and thigh folds), typically 1-4 weeks. Pause nystatin powder use while using clotrimazole cream. 01/03/20 25 025 Inactive Culturelle 10 billion cell capsule RxNorm: 614111 Take 1 Capsule(s) Oral QD 11/08/19 25 026 Active Culturelle 10 billion cell capsule RxNorm: 104201 Take 1 Capsule(s) Oral QD 11/08/19 25 025 Inactive hydrocodone 5 mg-acetaminophen 325 mg tablet RxNorm: 415660 Take 1 Tablet(s) Oral Q4H every four hours as needed for pain PRN for severe acute dental pain 10/21/19 25 025 Inactive penicillin V potassium 500 mg tablet RxNorm: 571433 Take 1 Tablet(s) Oral QID Take until dental appointment per ER recommendation 10/21/19 25 025 Inactive hydrocodone 5 mg-acetaminophen 325 mg tablet RxNorm: 526028 Take 1 Tablet(s) Oral Q4H every four hours as needed for pain PRN for severe acute dental pain 10/21/19 25 025 Inactive penicillin V potassium 500 mg tablet RxNorm: 035452 Take 1 Tablet(s) Oral QID Take until dental appointment per ER recommendation 10/21/19 25 025 Inactive potassium chloride ER 20 mEq tablet,extended release RxNorm: 206655 Take 2 Tablet(s) Oral TID (dx: hypokalemia) 09/14/19 25 026 Active potassium chloride ER 20 mEq tablet,extended release RxNorm: 272247 Take 2 Tablet(s) Oral TID (dx: hypokalemia) 09/14/19 25 025 Inactive loperamide 2 mg tablet RxNorm: 634423 Take 2 Tablet(s) Oral UD as directed [...] Date Active senna 8.6 mg tablet RxNorm: 322303 Take 1 Tablet(s) Oral QD as needed and 1 tab BID prn 09/06/19 No Stop Date Active cyclobenzaprine 10 mg tablet RxNorm: 899567 Take 1 Tablet(s) Oral QHS every night at bedtime as needed 09/06/19 No Stop Date Active loperamide 2 mg tablet RxNorm: 946855 Take 2 Tablet(s) Oral UD as directed as needed 2 tabs after first loose stool then 1 tab after each subsequent stool PRN Do not exceed 4 doses in 24 hours. Do not administer until after 3 loose stools. 09/06/19 026 Active pioglitazone 15 mg tablet RxNorm: 049502 Take 1 Tablet(s) Oral QD 09/06/19 No Stop Date Active loperamide 2 mg tablet RxNorm: 780566 Take 2 Tablet(s) Oral UD as directed as needed 2 tabs after first loose stool then 1 tab after each subsequent stool PRN Do not exceed 4 doses in 24 hours. Do not administer until after 3 loose stools. 09/06/19 25 025 Inactive pregabalin 100 mg capsule RxNorm: 180378 1 CAPSULE BY MOUTH EVERY MORNING (DX: NEUROPATHY) 08/23/19 25 025 Inactive FACILITY IS REQUESTING REFILL. PRIOR RX HAS BEEN EXHAUSTED. THANK YOU. pregabalin 150 mg capsule RxNorm: 023147 1 CAPSULE BY MOUTH AT BEDTIME (DX: NEUROPATHY) 08/21/19 25 025 Inactive FACILITY IS REQUESTING A REFILL OF THIS MEDICATION, THANK YOU! senna 8.6 mg tablet RxNorm: 113930 Take 1 Tablet(s) Oral QD as needed for constipation on day 2 of no bowel movement 08/09/19 25 025 Inactive Miralax 17 gram/dose oral powder RxNorm: 107992 Administer 17 Gram(s) Oral QD as needed for constipation on day 3 of no bowel movement 08/09/19 25 025 Inactive senna 8.6 mg tablet RxNorm: 018448 Take 1 Tablet(s) Oral QD as needed for constipation on day 2 of no bowel movement 08/09/19 25 Inactive Miralax 17 gram/dose oral powder RxNorm: 119564 Administer 17 Gram(s) Oral QD as needed for constipation on day 3 of no bowel movement 08/09/19 25 025 Inactive pregabalin 100 mg capsule RxNorm: 588823 Take 1 Capsule(s) Oral QAM every morning [...] (Concentrated) Insulin 500 unit/mL subcutaneous soln RxNorm: 573636 Inject 100 Unit(s) Subcutaneous AC before meals Three times daily before meals. 07/24/19 25 025 Inactive ammonium lactate 12 % topical cream RxNorm: 332960 Apply 1 Application Topical BID 07/20/19 No Stop Date Active ezetimibe 10 mg tablet RxNorm: 366142 Take 1 Tablet(s) Oral QD 07/18/19 No Stop Date Active senna 8.6 mg tablet RxNorm: 205979 Take 1 Tablet(s) Oral QD 07/18/19 25 025 Inactive metoprolol succinate ER 200 mg tablet,extended release 24 hr RxNorm: 053825 Take 1 Tablet(s) Oral QD 06/19/19 25 No Stop Date Active hydralazine 50 mg tablet RxNorm: 053759 Take 1 Tablet(s) Oral QID 06/19/19 25 No Stop Date Active carbamazepine 200 mg tablet RxNorm: 816799 Take 1 Tablet(s) Oral BID 06/19/19 25 No Stop Date Active amlodipine 10 mg tablet RxNorm: 055043 Take 1 Tablet(s) Oral QD 06/19/19 25 No Stop Date Active Eliquis 5 mg tablet RxNorm: 2578664 Take 1 Tablet(s) Oral BID 06/19/19 25 No Stop Date Active pantoprazole 40 mg tablet,delayed release RxNorm: 733675 Take 1 Tablet(s) Oral QAM every morning 06/19/19 25 025 Inactive pen needle, diabetic 30 gauge x 3/16 RxNorm: Use 1 6 times per day w/insulin 06/14/19 25 026 Active pen needle, diabetic 30 gauge x 3/16 RxNorm: Use 1 needle 6 times per day w/insulin 06/14/19 25 025 Inactive nystatin 100,000 unit/gram topical powder RxNorm: 222489 Apply 1 Application Topical BID as needed abdominal/breast/ groin folds 05/24/19 25 026 Active pregabalin 100 mg capsule RxNorm: 924554 Take 1 Capsule(s) Oral QAM every morning 05/22/19 25 025 Inactive nystatin 100,000 unit/gram topical powder RxNorm: 395190 Apply 1 Application Topical BID as needed abdominal/breast/ groin folds 04/11/20 24 024 Inactive chlorthalidone 25 mg tablet RxNorm: 477773 Take 1 Tablet(s) Oral QAM every morning 04/06/20 No Stop Date Active pregabalin 150 mg capsule RxNorm: 782735 Take 1 Capsule(s) Oral QHS every night at bedtime 03/31/20 24 024 Inactive Vascepa 1 gram capsule RxNorm: 0182261 Take 2 Capsule(s) Oral BID 03/30/20 24 025 Inactive rosuvastatin 40 mg tablet RxNorm: 646460 1 TAB ORALLY EVERY EVENING (DX:CORONARY ARTERY DISEASE) 03/28/20 24 No Stop Date Active venlafaxine ER 75 mg capsule,extended release 24 hr RxNorm: 197490 3 CAPS (225MG) ORALLY DAILY (DX: MOOD DISORDER) 03/28/20 24 No Stop Date Active pregabalin 100 mg capsule RxNorm: 481610 Take 1 Capsule(s) Oral QAM every morning 03/20/20 24 024 Inactive cholecalciferol (vitamin D3) 1,250 mcg (50,000 unit) capsule RxNorm: 014981 Take 1 Capsule(s) Oral QW once a week 03/15/20 Inactive Lancets,Thin 28 gauge RxNorm: Use 1 [...] Insulin 100 unit/mL (3 mL) subcutaneous RxNorm: 1904201 Inject 40 Unit(s) Subcutaneous BID 03/07/20 025 Inactive Please dispense one month supply. Humulin R U-500 (Concentrated) Insulin 500 unit/mL subcutaneous soln RxNorm: 752764 Inject 100 Unit(s) Subcutaneous AC before meals [...] PRN) to be use with new Accu Dike meter 03/04/20 024 Inactive ok to substitute with any covered alternative test strip FreeStyle Chema 2 Sensor kit RxNorm: Use UD as directed 03/02/20 24 024 Inactive Pen Needle 30 gauge x 516 RxNorm: Pen(s) Use 1 needle as directed TID 03/02/20 24 024 Inactive nystatin 100,000 unit/gram topical powder RxNorm: 615488 Apply 1 Application Topical BID as needed [...] (Concentrated) Insulin 500 unit/mL subcutaneous soln RxNorm: 777117 Inject 100 Unit(s) Subcutaneous TID 02/17/20 24 024 Inactive Humulin R U-500 (Concentrated) Insulin 500 unit/mL subcutaneous soln RxNorm: 346726 Inject 100 Unit(s) Subcutaneous TID 02/10/20 24 024 Inactive Basaglar KwikPen U-100 Insulin 100 unit/mL (3 mL) subcutaneous RxNorm: 9655251 Inject 30 Unit(s) Subcutaneous BID 02/10/20 24 024 Inactive Please dispense one month supply. pregabalin 100 mg capsule RxNorm: 283604 Take 1 Capsule(s) Oral QAM every morning 02/07/20 24 024 Inactive isosorbide mononitrate ER 60 mg tablet,extended release 24 hr RxNorm: 145611 Take 1 Tablet(s) Oral QD 02/01/20 24 025 Inactive aripiprazole 15 mg tablet RxNorm: 598455 Take 1/2 Tablet(s) Oral QD 02/01/20 24 Inactive torsemide 20 mg tablet RxNorm: 623971 1 TAB ORALLY DAILY (DX: EDEMA) 01/27/20 No Stop Date Active potassium chloride ER 20 mEq tablet,extended release(part/cryst) RxNorm: 7847662 2 TABS (40MEQ) ORALLY TWICE DAILY (DX: HYPOKALEMIA) 01/27/20 24 Inactive cephalexin 500 mg capsule RxNorm: 036431 Take 1 Capsule(s) Oral QID 12/17/19 24 024 Inactive cephalexin 500 mg capsule RxNorm: 242871 Take 1 Capsule(s) Oral QID 12/17/19 24 Inactive acetaminophen 500 mg tablet RxNorm: 887521 (MAX APAP:4GM/24HR) Take 1 Tablet(s) Oral TID as needed for pain 12/10/19 24 Inactive torsemide 20 mg tablet RxNorm: 417073 Take 1 Tablet(s) Oral QD 10/26/19 24 Inactive potassium chloride ER 20 mEq tablet,extended release RxNorm: 327185 Take 2 Tablet(s) Oral BID 10/26/19 24 Inactive torsemide 20 mg tablet RxNorm: 890075 Take 1 Tablet(s) Oral QD 10/26/19 24 Inactive potassium chloride ER 20 mEq tablet,extended release RxNorm: 941102 Take 2 Tablet(s) Oral BID 10/26/19 24 Inactive Artificial Tears (PF) 0.1 %-0.3 % drops in a dropperette RxNorm: 713156 Apply 1-2 Drop(s) Both eyes BID as needed 09/28/19 24 Inactive erythromycin 5 mg/gram (0.5 %) eye ointment RxNorm: 346730 Apply 1 Application Both eyes QHS every night at bedtime Instill ~1 cm ribbon into affected eye 09/28/19 24 Inactive Artificial Tears (PF) 0.1 %-0.3 % drops in a dropperette RxNorm: 649222 Apply 1-2 Drop(s) Both eyes BID as needed 09/28/19 24 05/14/2 024 Inactive erythromycin 5 mg/gram (0.5 %) eye ointment RxNorm: 109056 Apply 1 Application Both eyes QHS every night at bedtime Instill ~1 cm ribbon into affected eye 09/28/19 24 Inactive acetaminophen 500 mg tablet RxNorm: 425049 (MAX APAP:4GM/24HR) Take 1 Tablet(s) Oral TID as needed for pain 09/24/19 24 024 Inactive carvedilol 25 mg tablet RxNorm: 985459 Take 1 Tablet(s) Oral QD 09/08/19 24 No Stop Date Active pregabalin 100 mg capsule RxNorm: 501349 Take 1 Capsule(s) Oral QAM every morning 09/07/19 24 024 Inactive bisacodyl 10 mg rectal suppository RxNorm: 373532 Insert 1 Suppository Rectal QD as needed 07/13/19 24 No Stop Date Active ketoconazole 2 % shampoo RxNorm: 808562 Apply 1 Application Topical UD as directed 07/13/19 24 No Stop Date Active Ozempic 1 mg/dose (4 mg/3 mL) subcutaneous pen injector RxNorm: 8148093 Inject 1 Milligram(s) Subcutaneous QW once a week 07/13/19 24 No Stop Date Active Guaifenesin AC 10 mg-100 mg/5 mL oral liquid RxNorm: 873075 Take 10 Milliliter(s) Oral Q4H every four hours as needed 07/13/19 24 No Stop Date Active hydrocortisone 2.5 % topical cream RxNorm: 994362 Apply 1 Application Topical BID as needed 07/13/19 24 No Stop Date Active rosuvastatin 40 mg tablet RxNorm: 029978 Take 1 Tablet(s) Oral QPM every evening 07/13/19 24 024 Inactive ezetimibe 10 mg tablet RxNorm: 851955 Take 1 Tablet(s) Oral QD 07/13/19 24 025 Inactive polyethylene glycol 3350 17 gram/dose oral powder RxNorm: 027415 Take 17 Gram(s) Oral BID as needed mix in 4-8ox water 07/13/19 24 025 Inactive aripiprazole 15 mg tablet RxNorm: 427329 Take 1/2 Tablet(s) Oral QD 07/13/19 24 024 Inactive isosorbide mononitrate ER 60 mg tablet,extended release 24 hr RxNorm: 804272 Take 1 Tablet(s) Oral QD 07/13/19 24 024 Inactive ammonium lactate 12 % topical cream RxNorm: 343241 Apply 1 Application Topical BID 07/13/19 24 025 Inactive rosuvastatin 20 mg sprinkle capsule RxNorm: 4236638 Take 1 Capsule(s) Oral QD 07/13/19 24 025 Inactive Vascepa 1 gram capsule RxNorm: 4998250 Take 2 Capsule(s) Oral BID 07/13/19 24 024 Inactive venlafaxine ER 75 mg capsule,extended release 24 hr RxNorm: 851541 Take 3 Capsule(s) Oral QD 07/13/19 24 024 Inactive Basaglar KwikPen U-100 Insulin 100 unit/mL (3 mL) subcutaneous RxNorm: 1204150 Inject 30U SubQ twice daily 07/07/19 24 024 Inactive Please dispense one month supply. Basaglar KwikPen U-100 Insulin 100 unit/mL (3 mL) subcutaneous RxNorm: 9669762 Inject 30U SubQ twice daily 07/07/19 24 024 Inactive Please dispense one month supply. pregabalin 150 mg capsule RxNorm: 761304 Take 1 Capsule(s) Oral QHS every night at bedtime 07/05/19 24 024 Inactive pregabalin 150 mg capsule RxNorm: 380410 Take 1 Capsule(s) Oral QHS every night at bedtime 07/05/19 24 024 Inactive polyethylene glycol 3350 17 gram/dose oral powder RxNorm: 871086 Take 1 Packet Oral QD as needed (1 packet = 17g) mix with 4-8oz of liquid 06/15/19 24 024 Inactive bisacodyl 10 mg rectal suppository RxNorm: 080617 Insert one suppository per rectum once daily as needed for constipation 06/15/19 24 024 Inactive bisacodyl 10 mg rectal suppository RxNorm: 683765 Insert one suppository per rectum once daily as needed for constipation 06/15/19 24 024 Inactive pregabalin 100 mg capsule RxNorm: 928389 Take 1 Capsule(s) Oral QAM every morning 04/27/20 024 Inactive Levemir FlexPen 100 unit/mL (3 mL) solution subcutaneous insulin pen RxNorm: 246093 Inject 30 Unit(s) Subcutaneous BID 04/27/20 024 Inactive rosuvastatin 40 mg tablet RxNorm: 598861 Take 1 Tablet(s) Oral QPM every evening 04/16/20 024 Inactive D/C rosuvastatin 20mg venlafaxine ER 75 mg capsule,extended release 24 hr RxNorm: 958345 Take 3 Capsule(s) Oral QD 04/14/20 023 Inactive pregabalin 100 mg capsule RxNorm: 814821 Take 1 Capsule(s) Oral QAM every morning [...] strip clotrimazole 1 % topical cream RxNorm: 614841 Take apply topically to abdominal folds twice daily for 14 days 03/12/20 024 Inactive Ozempic 1 mg/dose (4 mg/3 mL) subcutaneous pen injector RxNorm: 8435590 Inject 1 Milligram(s) Subcutaneous QW once a week 03/11/20 023 Inactive rosuvastatin 20 mg tablet RxNorm: 260594 Take 1 Tablet(s) Oral QD 02/26/20 023 Inactive d/c pravastatin 80mg Ozempic 1 mg/dose (4 mg/3 mL) subcutaneous pen injector RxNorm: 0564109 Inject 1 Milligram(s) Subcutaneous QW once a week 02/20/20 23 023 Inactive pregabalin 150 mg capsule RxNorm: 939998 Take 1 Capsule(s) Oral HS at bed time 02/19/20 23 023 Inactive pregabalin 100 mg capsule RxNorm: 608340 Take 1 Capsule(s) Oral QAM every morning 02/18/20 23 023 Inactive venlafaxine ER 75 mg capsule,extended release 24 hr RxNorm: 892239 Take 3 Capsule(s) Oral QD 02/04/20 23 023 Inactive FreeStyle Chema 2 Sensor kit RxNorm: use as directed 02/04/20 023 Inactive FreeStyle Chema 2 Sensor kit RxNorm: use as directed 02/04/20 23 024 Inactive fluconazole 150 mg tablet RxNorm: 264557 Take 1 Tablet(s) Oral on day 3 and on day 6 02/03/20 024 Inactive venlafaxine ER 150 mg capsule,extended release 24 hr RxNorm: 946356 Take 1 Capsule(s) Oral QD 02/03/20 23 023 Inactive chlorthalidone 25 mg tablet RxNorm: 364307 Take 1 Tablet(s) Oral QAM every morning 02/03/20 23 024 Inactive acetaminophen 500 mg tablet RxNorm: 391062 1 TABLET ORALLY 3 TIMES DAILY (MAX APAP:4GM/24HR) 12/15/19 23 023 Inactive potassium chloride ER 20 mEq tablet,extended release RxNorm: 837632 Take 1 Tablet(s) Oral BID 12/09/19 23 024 Inactive d/c 20mEq once daily (sent from hospital) clotrimazole 1 % topical cream RxNorm: 073691 apply 1g topically to top of feet and in between toes BID 12/09/19 23 025 Inactive nystatin 100,000 unit/gram topical powder RxNorm: 935355 APPLY TO AFFECTED AREAS TOPICALLY 2 TIMES DAILY 11/21/19 23 023 Inactive Nystop 100,000 unit/gram topical powder RxNorm: 649122 Apply to abd folds, under breasts and L side of groin Topical BID x 14 days, then BID PRN 11/20/19 23 023 Inactive dx: yeast dermatitis Bengay Ultra Strength 4 %-30 %-10 % topical cream RxNorm: 000996 Apply 1 Gram(s) Topical QID PRN to feet and legs for neuropathic pain 11/11/19 23 024 Inactive hydrocortisone 2.5 % topical cream RxNorm: 827779 Apply 1/2 Gram(s) Topical BID as needed 11/10/19 23 024 Inactive clotrimazole 1 % topical cream RxNorm: 694148 Apply 1/2 Gram(s) Topical BID Apply to affected areas of groin, periarea, and abdominal topically 2 times daily 11/10/19 23 025 Inactive Levemir FlexPen 100 unit/mL (3 mL) solution subcutaneous insulin pen RxNorm: 857558 Inject 30 Unit(s) Subcutaneous BID 10/07/19 23 023 Inactive Humulin R U-500 (Concentrated) Insulin 500 unit/mL subcutaneous soln RxNorm: 404313 Inject 100 Unit(s) Subcutaneous TID 10/07/19 23 024 Inactive Ozempic 0.25 mg or 0.5 mg (2 mg/3 mL) subcutaneous pen injector RxNorm: 7170672 Inject 1/2 Milligram(s) Subcutaneous QW once a week 10/07/19 23 024 Inactive aripiprazole 15 mg tablet RxNorm: 329682 1/2 TAB (7.5MG) ORALLY DAILY (DX:MAJOR DEPRESSIVE DISORDER) 09/23/19 23 023 Inactive Accu-Chek Guide test strips RxNorm: Use 1 Test Strip QID 09/15/19 23 023 Inactive ok to substitute with any covered alternative test strip Lancets,Thin 28 gauge RxNorm: Use 1 as directed QID 09/15/19 23 023 Inactive torsemide 20 mg tablet RxNorm: 715743 Take 1 Tablet(s) Oral BID 09/09/19 23 024 Inactive d/c once daily dosing carvedilol 25 mg tablet RxNorm: 960313 Take 1 Tablet(s) Oral QD 08/25/19 23 024 Inactive pregabalin 150 mg capsule RxNorm: 740607 1 Capsule(s) Oral HS at bed time 08/18/19 23 023 Inactive pregabalin 100 mg capsule RxNorm: 429103 1 Capsule(s) Oral QAM every morning 08/18/19 23 023 Inactive carvedilol 25 mg tablet RxNorm: 540065 1 Tablet(s) Oral QD 07/28/19 23 023 Inactive lisinopril 20 mg tablet RxNorm: 885034 Give 1 Tablet(s) Oral QD 07/28/19 23 023 Inactive Lyrica 150 mg capsule RxNorm: 216090 Take 1 Capsule(s) Oral QHS every night at bedtime 07/19/19 23 023 Inactive d/c 100mg dose Diflucan 150 mg tablet RxNorm: 613440 Take 1 Tablet(s) Oral QD repeat on day 3 and 6 07/19/19 23 023 Inactive pregabalin 100 mg capsule RxNorm: 470571 Take 1 Capsule(s) Oral QAM every morning 07/19/19 23 023 Inactive gatifloxacin 0.5 % eye drops RxNorm: 032308 Instill 1 Drop(s) as directed TID Instill 1 drop in to affected eye(s) starting 1 day prior to surgery and continue until gone (do not exceed 4 weeks). 07/13/19 023 Inactive carvedilol 25 mg tablet RxNorm: 534692 2 Tablet(s) Oral BID 07/13/19 23 023 Inactive Humulin R Regular U-100 Insulin 100 unit/mL injection solution RxNorm: 383080 85 Unit(s) Injection TID 07/13/19 23 023 Inactive ketorolac 0.5 % eye drops RxNorm: 769122 Instill 1 Drop(s) as directed QID Instill 1 drop into affected eye(s) 4 times daily starting 1 day prior to surgery and continue until gone (do not exceed 4 weeks). 07/13/19 23 023 Inactive Diflucan 150 mg tablet RxNorm: 243964 Take 1 Tablet(s) Oral QD repeat on day 3 and 6 06/30/19 23 023 Inactive Accu-Chek Guide test strips RxNorm: Use 1 Test Strip QID Use 1 test strip to monitor blood glucose 4 times daily and as needed. Dx:E11.42. 06/23/19 23 023 Inactive ok to substitute with any covered alternative test strip dextromethorphan-gu aifenesin 10 mg-100 mg/5 mL oral liquid RxNorm: 031355 Take 10 Milliliter(s) Oral every 4 hours as needed for cough 06/19/19 23 023 Inactive dextromethorphan-gu aifenesin 10 mg-100 mg/5 mL oral liquid RxNorm: 265821 Take 10 Milliliter(s) Oral every 4 hours as needed for cough 06/19/19 023 Inactive Lyrica 150 mg capsule RxNorm: 062247 Take 1 Capsule(s) Oral QHS every night at bedtime 06/18/19 023 Inactive d/c 100mg dose aripiprazole 15 mg tablet RxNorm: 019576 1/2 TAB (7.5MG) ORALLY DAILY (DX:MAJOR DEPRESSIVE DISORDER) 06/05/19 23 023 Inactive pregabalin 100 mg capsule RxNorm: 949227 1 Capsule(s) Oral QAM every morning 06/02/19 023 Inactive Banophen 50 mg capsule RxNorm: 2792184 Take 1 Capsule(s) Oral Q6H every 6 hours as needed 05/19/19 23 No Stop Date Active Novolog Flexpen U-100 Insulin aspart 100 unit/mL (3 mL) subcutaneous RxNorm: 0170850 Inject 10 Unit(s) Subcutaneous QHS every night at bedtime with nighttime snack 04/08/20 22 022 Inactive Novolog Flexpen U-100 Insulin aspart 100 unit/mL (3 mL) subcutaneous RxNorm: 6817958 Inject 42 Unit(s) Subcutaneous TID in addition to sliding scale 04/08/20 22 022 Inactive d/c 36u albuterol sulfate HFA 90 mcg/actuation aerosol inhaler RxNorm: 3149067 Take 2 Puff(s) Inhalation Q4H every four hours as needed as needed for SOB, cough, or wheezing 04/07/20 030 Active Banophen 50 mg capsule RxNorm: 9196869 Take 1 Capsule(s) Oral Q6H every 6 hours as needed 04/06/20 023 Inactive diphenhydramine 50 mg tablet RxNorm: 3276261 Take 1 Tablet(s) Oral Q6H every 6 hours as needed 04/06/20 022 Inactive diphenhydramine 50 mg tablet RxNorm: 4701089 1 Tablet(s) Oral Q6H every 6 hours as needed 04/06/20 022 Inactive Abilify 15 mg tablet RxNorm: 254232 1/2 Tablet(s) Oral QD 03/10/20 023 Inactive Shingrix (PF) 50 mcg/0.5 mL intramuscular suspension, kit RxNorm: 1420844 Administer 1/2 Milliliter(s) Intramuscular QD one time shingrix step 2 ( step 1 given 11/04/21) WITH needle - Nursing please administer upon arrival and once administered post a bridge message with date of administration, horse breeder, expiration date, and lot# so we can update [facility] 02/18/20 22 022 Inactive dispense with needle Shingrix (PF) 50 mcg/0.5 mL intramuscular suspension, kit RxNorm: 7428306 Administer 1/2 Milliliter(s) Intramuscular QD one time shingrix step 2 ( step 1 given 11/04/21) WITH needle - Nursing please administer upon arrival and once administered post a bridge message with date of administration, horse breeder, expiration date, and lot# so we can update [facility] 02/18/20 22 022 Inactive dispense with needle Lyrica 100 mg capsule RxNorm: 678059 Take 1 Capsule(s) Oral QAM every morning 01/08/20 22 022 Inactive d/c 50mg dose acetaminophen 500 mg tablet RxNorm: 416122 Take 1 Tablet(s) Oral TID 01/08/20 22 022 Inactive d/c PRN order Lyrica 150 mg capsule RxNorm: 479822 Take 1 Capsule(s) Oral QHS every night at bedtime 01/08/20 22 023 Inactive d/c 100mg dose polyethylene glycol 3350 17 gram/dose oral powder RxNorm: 948163 Take 17=1 capful Gram(s) Oral QD mix with 4-8oz of liquid 01/08/20 22 025 Inactive take this in addition to BID prn order Abilify 5 mg tablet RxNorm: 255679 Take 1 Tablet(s) Oral QD take 1 tab po QD #30 refill 5 dx: MDD 12/12/19 22 022 Inactive Abilify 5 mg tablet RxNorm: 319969 Take 1 Tablet(s) Oral QD take 1 tab po QD #30 refill 5 dx: MDD 12/12/19 22 022 Inactive Novolog Flexpen U-100 Insulin aspart 100 unit/mL (3 mL) subcutaneous RxNorm: 7467123 Inject 42 Unit(s) Subcutaneous TID in addition to sliding scale 12/10/19 22 022 Inactive d/c 36u chlorthalidone 25 mg tablet RxNorm: 727632 Take 1 Tablet(s) Oral QAM every morning 12/10/19 22 023 Inactive pregabalin 50 mg capsule RxNorm: 870427 Take 1 Capsule(s) Oral QAM every morning 11/12/19 22 022 Inactive tetanus-diphtheria toxoids-Td 2 Lf unit-2 Lf unit/0.5 mL IM suspension RxNorm: 139 Take 0.5 Miscellaneous Intramuscular 11/12/19 22 022 Inactive need tdap - nursing to administer upon arrival pregabalin 50 mg capsule RxNorm: 685930 Take 1 Capsule(s) Oral QAM every morning 10/16/19 22 022 Inactive pregabalin 50 mg capsule RxNorm: 584840 Take 1 Capsule(s) Oral QAM every morning 10/16/19 22 022 Inactive pregabalin 50 mg capsule RxNorm: 535689 1 Capsule(s) Oral QAM every morning 10/15/19 22 022 Inactive Shingrix (PF) 50 mcg/0.5 mL intramuscular suspension, kit RxNorm: 1866742 Administer 1/2 Milliliter(s) Intramuscular one time Nursing please administer upon arrival and once administered post a bridge message with date of administration, horse breeder, expiration date, and lot# so we can update [facility]. 10/09/19 22 022 Inactive shingrix step 1 Shingrix (PF) 50 mcg/0.5 mL intramuscular suspension, kit RxNorm: 2062053 Administer 1/2 Milliliter(s) Intramuscular one time Nursing please administer upon arrival and once administered post a bridge message with date of administration, horse breeder, expiration date, and lot# so we can [...] aspart 100 unit/mL (3 mL) subcutaneous RxNorm: 5688108 Inject 10 Unit(s) Subcutaneous QHS every night at bedtime with nighttime snack 10/08/19 22 Inactive Shingrix (PF) 50 mcg/0.5 mL intramuscular suspension, kit RxNorm: 1092872 ADMINISTER 2-DOSE SERIES PER CDC GUIDELINES 10/08/19 22 022 Active Shingrix (PF) 50 mcg/0.5 mL intramuscular suspension, kit RxNorm: 1259403 ADMINISTER 2-DOSE SERIES PER CDC GUIDELINES 10/08/19 22 022 Inactive Novolog Flexpen U-100 Insulin aspart 100 unit/mL (3 mL) subcutaneous RxNorm: 1042598 Inject 36 Unit(s) Subcutaneous TID in addition to sliding scale 10/08/19 22 Inactive cholecalciferol (vitamin D3) 1,250 mcg (50,000 unit) capsule RxNorm: 569710 Take 1 Capsule(s) Oral QW once a week 10/08/19 22 024 Inactive Novofine Autocover 30 gauge x 1/3 needle RxNorm: Use 1 Miscellaneous UD as directed Use 1 needle as directed to administer insulin 5 times a day Dx:E11.42. 10/03/19 22 022 Inactive ok to substitute with any covered alternative pen needle benzoyl peroxide 10 % topical cleanser RxNorm: 384150 Apply 1 Application Topical QD apply to face, wash rinse and dry once daily (may change to QOD if drying) 08/19/19 22 022 Inactive (%covered by insurance) #60ml refill 11 dx: acne benzoyl peroxide 10 % topical cleanser RxNorm: 839400 Apply 1 Application Topical QD apply to face, wash rinse and dry once daily (may change to QOD if drying) 08/19/19 022 Inactive (%covered by insurance) #60ml refill 11 dx: acne benzoyl peroxide 10 % topical cleanser RxNorm: 456659 Apply 1 Application Topical QD apply to face, wash rinse and dry once daily (may change to QOD if drying) 08/19/19 022 Inactive (%covered by insurance) #60ml refill 11 dx: acne Lyrica 50 mg capsule RxNorm: 031256 Take 1 Capsule(s) Oral QAM every morning Take 1 capsule by mouth once daily 08/19/19 022 Inactive benzoyl peroxide 10 % topical cleanser RxNorm: 466165 Apply 1 Application Topical QD apply to face, wash rinse and dry once daily (may change to QOD if drying) 08/19/19 22 022 Inactive (%covered by insurance) #60ml refill 11 dx: acne Lyrica 100 mg capsule RxNorm: 901315 Take 1 Capsule(s) Oral QHS every night at bedtime Take 1 capsule by mouth once daily at bedtime 08/19/19 22 022 Inactive Lyrica 100 mg capsule RxNorm: 229191 Take 1 Capsule(s) Oral QHS every night at bedtime Take 1 capsule by mouth once daily at bedtime 08/16/19 22 022 Inactive Lyrica 50 mg capsule RxNorm: 077051 Take 1 Capsule(s) Oral QAM every morning Take 1 capsule by mouth once daily 08/16/19 22 022 Inactive Levemir FlexTouch U-100 Insulin 100 unit/mL (3 mL) subcutaneous pen RxNorm: 005714 Inject 86 Unit(s) Subcutaneous BID 08/05/19 22 022 Inactive d/c 83units BID Lyrica 100 mg capsule RxNorm: 494322 Take 1 Capsule(s) Oral QHS every night at bedtime Take 1 capsule by mouth once daily at bedtime 07/14/19 22 022 Inactive Lyrica 50 mg capsule RxNorm: 380851 Take 1 Capsule(s) Oral QAM every morning Take 1 capsule by mouth once daily 07/14/19 22 022 Inactive Levemir FlexTouch U-100 Insulin 100 unit/mL (3 mL) subcutaneous pen RxNorm: 192545 Inject 83 Unit(s) Subcutaneous BID 07/08/19 22 [...] test strip hydralazine 50 mg tablet RxNorm: 522612 Take 1 Tablet(s) Oral QID 05/05/20 21 Inactive venlafaxine ER 225 mg tablet,extended release 24 hr RxNorm: 440373 Take 1 Tablet(s) Oral QD 05/05/20 Inactive venlafaxine ER 225 mg tablet,extended release 24 hr RxNorm: 322466 Take 1 Tablet(s) Oral QD 05/05/20 022 Inactive isosorbide mononitrate ER 30 mg tablet,extended release 24 hr RxNorm: 159374 Take 1 Tablet(s) Oral QD 05/05/20 024 Inactive hydralazine 50 mg tablet RxNorm: 517964 Take 1 Tablet(s) Oral QID 05/05/20 21 Inactive aspirin 81 mg tablet,delayed release RxNorm: 077582 Take 1 Tablet(s) Oral QD 03/31/20 022 Inactive Vitamin D2 1,250 mcg (50,000 unit) capsule RxNorm: 3774681 Take 1 Capsule(s) Oral QW once a week x 12 weeks 03/31/20 022 Inactive Vitamin D2 1,250 mcg (50,000 unit) capsule RxNorm: 2953823 Take 1 Capsule(s) Oral QW once a week 03/31/20 Inactive Zetia 10 mg tablet RxNorm: 002934 Take 1 Tablet(s) Oral QD 03/31/20 024 Inactive Zetia 10 mg tablet RxNorm: 532635 Take 1 Tablet(s) Oral QD 03/31/20 021 Inactive hydralazine 25 mg tablet RxNorm: 334832 Take 1 Tablet(s) Oral QID 03/31/20 021 Inactive hydralazine 25 mg tablet RxNorm: 122501 Take 1 Tablet(s) Oral QID 03/31/20 021 Inactive hydralazine 10 mg tablet RxNorm: 396510 Take 1 Tablet(s) Oral QID 03/03/20 021 Inactive cephalexin 500 mg tablet RxNorm: 355772 Take 1 Tablet(s) Oral QID 02/27/20 021 Inactive cephalexin 500 mg tablet RxNorm: 516631 Take 1 Tablet(s) Oral QID 02/27/20 021 Inactive lisinopril 40 mg tablet RxNorm: 892743 Take 1 Tablet(s) Oral QD 02/11/20 023 Inactive Eliquis 5 mg tablet RxNorm: 2535263 Take 1 Tablet(s) Oral BID 01/05/20 21 025 Inactive Eliquis 5 mg tablet RxNorm: 2620883 Take 2 Tablet(s) Oral QD 01/01/20 21 021 Inactive Lyrica 50 mg capsule RxNorm: 799151 Take 1 Capsule(s) Oral QAM every morning 12/24/19 021 Inactive Lyrica 100 mg capsule RxNorm: 856645 Take 1 Capsule(s) Oral QHS every night at bedtime 12/24/19 021 Inactive clotrimazole 1 % topical cream RxNorm: 124096 Apply to right foot and toes Topical BID 12/04/19 21 023 Inactive metoprolol succinate ER 200 mg tablet,extended release 24 hr RxNorm: 385440 Take 1 Tablet(s) Oral QD 12/04/19 21 023 Inactive ciprofloxacin 500 mg tablet RxNorm: 202055 Take 1 Tablet(s) Oral QD 11/30/19 21 021 Inactive DX ofloxacin otic drops Accu-Chek Guide test strips RxNorm: USE 1 TO CHECK GLUCOSE 4 TIMES DAILY AND NEEDED 11/15/19 21 023 Inactive Blood Glucose Test strips RxNorm: Use 1 Test Strip QID at PRN 11/05/19 21 023 Inactive E11.42 lisinopril 30 mg tablet RxNorm: 957269 Take 1 Tablet(s) Oral QD 10/30/19 021 Inactive lisinopril 20 mg tablet RxNorm: 364257 Take 1 Tablet(s) Oral QD 10/23/19 21 021 Inactive lisinopril 20 mg tablet RxNorm: 752764 Take 1 Tablet(s) Oral QD 10/23/19 21 021 Inactive lisinopril 10 mg tablet RxNorm: 317334 Take 1 Tablet(s) Oral QD 10/02/19 21 021 Inactive icosapent ethyl 1 gram capsule RxNorm: 8710159 Take 2 Capsule(s) (2 gm) Oral BID with meals 09/12/19 21 024 Inactive Okay to dispense one 2gm tab if you have that available. icosapent ethyl 1 gram capsule RxNorm: 6598794 Take 2 Capsule(s) Oral BID 09/12/19 21 021 Inactive Okay to dispense one 2gm tab if you have that available. amlodipine 10 mg tablet RxNorm: 067579 Take 1 Tablet(s) Oral QD 09/04/19 21 021 Inactive aspirin 81 mg tablet,delayed release RxNorm: 706594 Take 1 Tablet(s) Oral QD 09/04/19 21 021 Inactive Levemir FlexTouch U-100 Insulin 100 unit/mL (3 mL) subcutaneous pen RxNorm: 168189 Inject 150 Unit(s) Subcutaneous BID 09/04/19 21 022 Inactive venlafaxine ER 150 mg tablet,extended release 24 hr RxNorm: 464993 Take 1 Tablet(s) Oral QD 09/04/19 21 021 Inactive clotrimazole-betame thasone 1 %-0.05 % topical cream RxNorm: 925543 Apply to rash on red area on left abdomen/chest Topical BID 03/ 021 Inactive amlodipine 5 mg tablet RxNorm: 421256 Take 1 Tablet(s) Oral QD 07/31/19 Inactive cephalexin 500 mg tablet RxNorm: 994773 Take 1 Tablet(s) Oral BID BID - Twice Daily 07/31/19 21 021 Inactive Start 08/01/20 pantoprazole 40 mg tablet,delayed release RxNorm: 436292 Take 1 Tablet(s) Oral QAM every morning 07/08/19 025 Inactive clopidogrel 75 mg tablet RxNorm: 055471 Take 1 Tablet(s) Oral QD 07/08/19 021 Inactive Blood Glucose Test strips RxNorm: Use 1 Test Strip QID at PRN 07/08/19 Inactive E11.42 senna 8.6 mg tablet RxNorm: 075050 Take 1 Tablet(s) Oral QD 07/08/19 025 Inactive Novolog Flexpen U-100 Insulin aspart 100 unit/mL (3 mL) subcutaneous RxNorm: 2606782 Administer per sliding scale Milliliter(s) Subcutaneous TID 151-200: 10 u; 201-250: 20 u; 251-300: 30 u; 301-350: 40 u; 351-400: 50 u. 07/08/19 022 Inactive lisinopril 5 mg tablet RxNorm: 039643 Take 1 Tablet(s) Oral QD 07/08/19 021 Inactive Novolog Flexpen U-100 Insulin aspart 100 unit/mL (3 mL) subcutaneous RxNorm: 2804561 Inject 85 Unit(s) Subcutaneous TID 07/08/19 022 Inactive pravastatin 80 mg tablet RxNorm: 247498 Take 1 Tablet(s) Oral QHS every night at bedtime 07/08/19 023 Inactive clotrimazole 1 % topical cream RxNorm: 958411 Apply to bilateral groin areas Topical BID 07/08/19 21 022 Inactive metoprolol succinate ER 200 mg tablet,extended release 24 hr RxNorm: 516742 Take 1 Tablet(s) Oral QD 07/08/19 021 Inactive Vitamin D3 25 mcg (1,000 unit) tablet RxNorm: 828253 Take 1 Tablet(s) Oral QD 07/08/19 21 021 Inactive isosorbide dinitrate 30 mg tablet RxNorm: 254284 Take 1 Tablet(s) Oral QD 07/08/19 021 Inactive carbamazepine 200 mg tablet RxNorm: 618562 Take 1 Tablet(s) Oral BID 07/08/19 21 025 Inactive Levemir FlexTouch U-100 Insulin 100 unit/mL (3 mL) subcutaneous pen RxNorm: 601422 Inject 140 Unit(s) Subcutaneous BID 07/08/19 21 021 Inactive torsemide 20 mg tablet RxNorm: 310749 Take 1 Tablet(s) Oral QD 07/08/19 023 Inactive venlafaxine 75 mg tablet RxNorm: 521429 Take 1 Tablet(s) Oral QD 07/08/19 021 Inactive acetaminophen 500 mg tablet RxNorm: 556122 Take 1 Tablet(s) Oral TID as needed for headache 06/18/19 021 Inactive acetaminophen 500 mg tablet RxNorm: 898454 Take 1 Tablet(s) Oral TID as needed for headache 06/18/19 21 021 Inactive Lyrica 100 mg capsule RxNorm: 451501 Take 1 Capsule(s) Oral QHS every night at bedtime 06/11/19 021 Inactive Lyrica 50 mg capsule RxNorm: 984539 Take 1 Capsule(s) Oral QAM every morning 06/10/19 21 021 Inactive hydrocortisone 2.5 % topical cream RxNorm: 083732 Apply to bilateral groin creases Topical BID 05/15/20 20 021 Inactive clotrimazole 1 % topical cream RxNorm: 302331 Apply to bilateral groin areas Topical BID 05/15/20 20 021 Inactive Lyrica 50 mg capsule RxNorm: 113197 Take 1 Capsule(s) Oral QAM every morning 05/14/20 20 020 Inactive Lyrica 100 mg capsule RxNorm: 160416 Take 1 Capsule(s) Oral QHS every night [...] Inactive Nystop 100,000 unit/gram topical powder RxNorm: 465719 Apply to abd folds, under breasts and L side of groin Topical BID x 14 days, then BID PRN 04/08/20 20 Inactive dx: yeast dermatitis Lyrica 100 mg capsule RxNorm: 128342 Take 1 Capsule(s) Oral QHS every night at bedtime 03/13/20 20 Inactive Lyrica 50 mg capsule RxNorm: 307048 Take 1 Capsule(s) Oral QAM every morning 03/13/20 20 Inactive ketoconazole 2 % shampoo RxNorm: 011649 Apply Topical two times a week with showers 03/11/20 20 Inactive cholecalciferol (vitamin D3) 50 mcg (2,000 unit) tablet RxNorm: 573949 Take 1 Tablet(s) Oral QD 03/11/20 20 Inactive Zetia 10 mg tablet RxNorm: 616413 Take 1 Tablet(s) Oral QD 03/07/20 20 021 Inactive Zetia 10 mg tablet RxNorm: 513638 Take 1 Tablet(s) Oral QD 03/07/20 20 020 Inactive Lyrica 50 mg capsule RxNorm: 841414 Take 1 Capsule(s) Oral QAM every morning 02/15/20 20 020 Inactive Lyrica 100 mg capsule RxNorm: 931481 Take 1 Capsule(s) Oral QHS every night at bedtime 02/15/20 20 020 Inactive Lyrica 100 mg capsule RxNorm: 270799 Take 1 Capsule(s) Oral QHS every night at bedtime 02/15/20 20 020 Inactive Lyrica 50 mg capsule RxNorm: 288832 Take 1 Capsule(s) Oral QAM every morning 02/15/20 20 020 Inactive venlafaxine ER 75 mg capsule,extended release 24 hr RxNorm: 514566 Take 3 Capsule(s) Oral QD 06/12/19 023 Inactive polyethylene glycol 3350 17 gram/dose oral powder RxNorm: 755181 Take 17=1 capful Gram(s) Oral BID as needed mix with 4-8oz of liquid 06/12/19 22 024 Inactive icosapent ethyl 1 gram capsule RxNorm: 8736875 Take 2 Capsule(s) (2 gm) Oral BID with meals 10/07/19 23 023 Inactive Okay to dispense one 2gm tab if you have that available. Levemir FlexTouch U-100 Insulin 100 unit/mL (3 mL) subcutaneous pen RxNorm: 136721 Inject 80 Unit(s) Subcutaneous BID 07/14/19 23 023 Inactive metoprolol succinate ER 200 mg tablet,extended release 24 hr RxNorm: 747761 Take 1 Tablet(s) Oral QD 08/12/19 23 025 Inactive loperamide 2 mg capsule RxNorm: 597716 Take 1 Capsule(s) Oral QID as needed 09/06/19 25 025 Inactive hydralazine 50 mg tablet RxNorm: 363177 Take 1 Tablet(s) Oral QID 08/12/19 23 025 Inactive Soft Touch Lancets RxNorm: miscellaneous 03/04/20 24 025 Inactive Novolog Flexpen U-100 Insulin aspart 100 unit/mL (3 mL) subcutaneous RxNorm: 0826365 Insert 30 Unit(s) Subcutaneous TID with meals [...] Medical Equipment No Medical Equipment data Assessments No Assessment data Reason For Visit No Reason For [...] Polst 01/03/2025 POLST 10/06/2022 Full Code 12/31/2020 Plan of Care Planned Activity Notes Codes Status Date Referral: [facility] [address] [id number] [facility]erral[facility] Records [id number]/06/2025Referral: [facility]/Endocrinology WPtel: [address] [facility] [address] [id number] USReferralNo Records [id number]/24/2025Referral: [facility] [address] [facility] [address] [id number] USReferralRecords [id number]/08/2023Referral: [facility] WPtel: [address] [facility] [address] [id number] NFUqtnzrawGkrmkexhx56/12/2022Referral: General CardiologyReferralCompleted 1Referral: General PsychologistReferralClosedReferral: General PsychiatristReferralPatient/Family Scheduling AppointmentReferral: [facility] WPtel: [id number] USReferralFacility Scheduling AppointmentReferral: General Physical Medicine [...] extremity edema Active 01/11/2024 (E11.22-250.40) Stage 2 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
--- OUTSIDE RECORDS SUMMARY | 2025-04-09 18:00 | XMS_ITS | CCD ---
Author Name Alissa Zheng MD her Address [address] [place] [address] Phone Organization [facility] Phone Care Team Providers Care Thermoscrew Operator Name Role Phone Arpit VIDALKeegan Harrison Primary Care Provider Leona vailable Unavailable Chronic Care Management Unavaila ble Summary Purpose DataExchange Insurance Providers Payer name Policy type / Coverage type Covered republican ID Effective Begin Date Effective End Date Medicare [place] Medicare Part B [id number] Unknown Unknown Medicaid [place] Medicare Part B [id number] Unknown Unknown Family history Sister Brittany Suggs [...] on file 07/11/[address]: 295662674 Never smoker 01/16 Sexually Active? Unknown No [...] Single 10/07/2021 Living arrangements Unknown Correction 09/03/[address]: 246382520 No Alcohol Consum ption 09/02/2020 Allergies, Adverse Reactions, Alerts Substance Reaction Codes Entered Date Inactivated Date Status * NO KNOWN FOOD ALLERGIES Nwrvjbz7907/13/2023 Inactive DateActiveLISINOPRILRxNorm: 9696955/No Inactive DateActiveMetformin HWdDcmaokj73/28/2020 Inactive DateActive* NO KNOWN ENVIRONMENTAL FBRQXKDTPQrodivw34/27/2024 Inactive DateActive Past Medical History Illness Codes Condition Status Onset Date Resolved Date ACP (advance care planning) SNOMED CT: 3 17143618 ICD-10: Z71.89 ICD-9: V65.77Saazwg11/11/2025UnknownAmputated toe of right footICD-10: S98.131A ICD-9: 895.7Xyuubi9103/27/2025UnknownCKD stage 3a, GFR 45-59 ml/minICD-10: N18.31 ICD-9: 585.3Gqldam4603/27/2025UnknownDiabetic neuropathy associated with type 2 diabetes mellitusICD-10: E11.40 ICD-9: 250.28Qbqmbw76/11/2025UnknownPreventative health careSNOMED CT: 731737250 ICD-10: Z00.00 ICD-9: V70.8Lmbcfw3103/27/2025UnknownCoronary artery disease involving [place] coronary artery of [place] heart, angina presence unspecifiedICD-10: I25.10 ICD-9: 414.07Ubyfmy22/23/2025UnknownLower extremity edemaICD-10: R60.0 ICD-9: 782.8Vcfiyr5302/06/2025UnknownOSA (obstructive sleep apnea)ICD-10: G47.33 ICD-9: 327.55Mheyep59/23/2025UnknownPoor dental hygieneSNOMED CT: 321898337 ICD-10: Z91.89 ICD-9: 525.8Zzsqzl9402/06/2025UnknownSimple chronic bronchitisSNOMED CT: 95926777 ICD-10: J41.0 ICD-9: 491.3Bluzgn5702/06/2025UnknownHypertensive heart disease without heart failureICD-10: I11.9 ICD-9: 402.95Dhzafa81/26/2025UnknownOnychogryposisICD-10: L60.2 ICD-9: 703.3Gnnmel5601/09/2025UnknownType 2 diabetes mellitus with diabetic chronic kidney diseaseICD-10: E11.22 ICD-9: 250.24Gtzkqm39/26/2025UnknownBody mass index [BMI] 60.0-69.9, adultICD- 10: Z68.44 ICD-9: V85.47Yphpjq12/07/2025UnknownHistory of recent hospitalizationSNOMED CT: 290119863 ICD-10: Z92.89 ICD-9: V13.4Xywetf9812/21/2024UnknownHypokalemiaICD-10: E87.6 ICD-9: 276.1Jygntv4512/21/[address] incontinenceSNOMED CT: 42302664 ICD-10: N39.46 ICD-9: 788.24Xigvhn17/07/2025UnknownType 2 diabetes mellitus with diabetic polyneuropathy, with long-term current use of insulinICD-10: E11.42 ICD-9: 250.85Epqjvm24/07/2025UnknownCandidal intertrigoICD-10: B37.2 ICD-9: 112.1Wjlaqn9512/12/2024UnknownPulmonary noduleICD-10: R91.1 ICD-9: 793.87Isxmwv66/29/2025UnknownConstipation by delayed colonic transitICD- 10: K59.01 ICD-9: 564.35Ibwyey78/24/2025UnknownLoose stoolsICD-10: R19.5 ICD-9: 787.9Jxazzx8311/07/2024UnknownParaparesis of both lower limbsICD-10: G82.20 ICD-9: 344.2Krdyzo1311/07/2024UnknownSeizure disorderICD-10: G40.909 ICD-9: 345.16Osywjl70/24/2025UnknownHypercoagulable stateICD-10: D68.59 ICD-9: 289.46Axwjqy76/27/2025UnknownMajor depression, recurrentICD-10: F33.9 ICD-9: 296.12Pencnz61/27/2025UnknownRecurrent major depressive disorder, in partial remissionICD-10: F33.41 ICD-9: 296.76Aelesc41/27/2025UnknownPressure ulcer of left calf, unstageableICD- 10: L89.890 ICD-9: 707.69Gzvwahfy74/27/2025UnknownHemorrhoidsICD-10: K64.9 ICD-9: 455.4Mbcthe2507/11/2024UnknownPVD (peripheral vascular disease)ICD-10: I73.9 ICD-9: 443.9Kfxfgc4207/11/2024UnknownHyperlipidemia associated with type 2 diabetes mellitusICD-10: E11.69 ICD-9: 250.62Vrpmqa05/28/2025UnknownLow back painICD-10: M54.50 ICD-9: 724.0Trlees7703/07/2024UnknownPhysical deconditioningICD-10: R53.81 ICD-9: 799.8Dfuzkb5203/07/2024UnknownAdvanced care planning - to document end of life navglaqzvlgJbnrugkJxhmes33/24/2024UnknownHistory of anemia due to CKDICD- 10: N18.9 ICD-9: 585.5Egsnwk0302/08/2024UnknownHx of deep venous thrombosisICD-10: Z86.718 ICD-9: V12.44Opmspx66/24/2024UnknownLearning disabilityICD-10: F81.9 ICD-9: 315.4Luohwm6902/08/2024UnknownReducible umbilical herniaICD-10: K42.9 ICD-9: 553.8Pwokrt8802/08/2024UnknownVitamin D deficiencyICD-10: E55.9 ICD-9: 268.4Untyrt9402/08/2024UnknownCallus of heelICD-10: L84 ICD-9: 215Qcefefiz21/28/2024UnknownGout due to renal impairmentICD-10: M10.30 ICD-9: 274.93Hdtiuybx21/28/2024UnknownHyperhidrosis of palmsICD-10: L74.512 ICD-9: 705.81Coajqikx15/28/2024UnknownHyperlipidemia, unspecifiedICD-10: E78.5 ICD-9: 272.5Ozfhnvul20/28/2024UnknownOther fpc (current) drug therapyICD- 10: Z79.899 ICD-9: V58.88Wkbgappm04/28/2024UnknownPain of right heelICD-10: M79.671 ICD-9: 729.9Fjprabsc48/28/2024UnknownStage 2 chronic kidney diseaseICD-10: N18.2 ICD-9: 585.5Aowmmyka98/28/2024UnknownTinea pedis of both feetICD-10: B35.3 ICD-9: 110.3Chbxryeh77/28/2024UnknownCellulitisICD-10: L03.90 ICD-9: 682.3Sosyavey73/23/2024UnknownDandruff in adultICD-10: L21.0 ICD-9: 690.33Fzrtkers38/23/2024UnknownEncounter for other specified special examinationsICD-10: Z01.89 ICD-9: V72.41Rbdqlsmv05/23/2024UnknownEncounter for screening for nutritional disorderICD-10: Z13.21 ICD-9: V77.17Ixtagvfo60/23/2024UnknownImpacted cerumen, left earICD-10: H61.22 ICD-9: 380.1Dwtnbila63/23/2024UnknownShortness of breathICD-10: R06.02 ICD-9: 786.92Icszettp61/23/2024UnknownSkin tagICD-10: L91.8 ICD-9: 701.1Jwecbazb83/23/2024UnknownInappropriate sexual behaviorICD-10: Z72.89 ICD-9: 312.33Qstfml12UnknownPre-op evaluationICD-10: Z01.818 ICD-9: V72.88Zjxskd92/28/2023UnknownSecondary hypertensionICD-10: I15.9 ICD-9: 405.90Ahzpfj19/28/2023UnknownDepressionICD-10: F32.9 ICD-9: 906Bvwbtslb38/27/2022UnknownDVT (deep venous thrombosis)ICD-10: I82.409 ICD-9: 453.12Cghojzwh93/27/2022UnknownEncounter for immunizationICD-10: Z23 ICD-9: V03.08Glvaqevn35/27/2022UnknownLong term (current) use of insulinICD-10: Z79.8Rnmsblcx58/27/2022UnknownMuscular painICD-10: M79.10 ICD-9: 729.2Deqrmnqa99/27/2022UnknownHypertension associated with diabetesICD- 10: E11.59 ICD-9: 250.86Backsdzc45/23/2022UnknownContact with and (suspected) exposure to dqbnq-17OIA-40: Z20.822 ICD-9: V01.97Dilsxczk34/17/2021UnknownOther infective acute otitis externa of left earICD-10: H60.392 ICD-9: 380.41Etvvxmgm87/17/2021UnknownScrotal skin lesionICD-10: N50.9 ICD-9: 608.6Jbkxlcjk30/17/2021UnknownAnemia due to stage 3b chronic kidney diseaseICD-10: N18.32 ICD-9: 285.60Fpccavqy02UnknownChronic kidney disease, stage 3 unspecifiedICD-10: N18.95Zlolyagm21UnknownContact with and (suspected) exposure to other viral communicable diseasesICD-10: Z20.828 ICD-9: V01.63Flbmaixh127070HqbsqccDoxlulxaBnaioqvNqlqkz63/28/2020Unknown Diabetes mellitus Type 4SntkvysBqmtwa96/28/2020UnknownAnemia in chronic kidney diseaseICD-10: D63.7Iitcazqh20UnknownHyperlipidemia, unspecifiedICD-10: E78.9Dgfhgiwc19Unknown Problems Condition Codes Effective Dates Condition St atus ACP (advance care planning) SNOMED CT: 3 20502053 ICD-10: Z71.89 ICD-9: V65.4911/5ActiveAmputated toe of right footICD-10: S98.131A ICD-9: 895.011/5ActiveCKD stage 3a, GFR 45-59 ml/minICD-10: N18.31 ICD-9: 585.311/5ActiveDiabetic neuropathy associated with type 2 diabetes mellitusICD-10: E11.40 ICD-9: 250.6011/5ActivePreventative health careSNOMED CT: 900431329 ICD-10: Z00.00 ICD-9: V70.011/5ActiveCoronary artery disease involving [place] coronary artery of [place] heart, angina presence unspecifiedICD-10: I25.10 ICD-9: 414.0109/5ActiveLower extremity edemaICD-10: R60.0 ICD-9: 782.309/5ActiveOSA (obstructive sleep apnea)ICD-10: G47.33 ICD-9: 327.2309/5ActivePoor dental hygieneSNOMED CT: 162403050 ICD-10: Z91.89 ICD-9: 525.809/5ActiveSimple chronic bronchitisSNOMED CT: 16283262 ICD-10: J41.0 ICD-9: 491.009/5ActiveHypertensive heart disease without heart failureICD- 10: I11.9 ICD-9: 402.9008/5ActiveOnychogryposisICD-10: L60.2 ICD-9: 703.808/5ActiveType 2 diabetes mellitus with diabetic chronic kidney diseaseICD-10: E11.22 ICD-9: 250.4008/5ActiveBody mass index [BMI] 60.0-69.9, adultICD-10: Z68.44 ICD-9: V85.4408/5ActiveHistory of recent hospitalizationSNOMED CT: 197529256 ICD-10: Z92.89 ICD-9: V13.908/5ActiveHypokalemiaICD-10: E87.6 ICD-9: 276.808/5ActiveMixed incontinenceSNOMED CT: 82123913 ICD-10: N39.46 ICD-9: 788.3308/5ActiveType 2 diabetes mellitus with diabetic polyneuropathy, with long-term current use of insulinICD-10: E11.42 ICD-9: 250.6008/5ActiveCandidal intertrigoICD-10: B37.2 ICD-9: 112.307/5ActivePulmonary noduleICD-10: R91.1 ICD-9: 793.11075ActiveConstipation by delayed colonic transitICD-10: K59.01 ICD-9: 564.0106/5ActiveLoose stoolsICD-10: R19.5 ICD-9: 787.706/5ActiveParaparesis of both lower limbsICD-10: G82.20 ICD-9: 344.106/5ActiveSeizure disorderICD-10: G40.909 ICD-9: 345.9006/5ActiveHypercoagulable stateICD-10: D68.59 ICD-9: 289.8105/5ActiveMajor depression, recurrentICD-10: F33.9 ICD-9: 296.3005/5ActiveRecurrent major depressive disorder, in partial remissionICD-10: F33.41 ICD-9: 296.35055ActivePressure ulcer of left calf, unstageableICD-10: L89.890 ICD-9: 707.0905ResolvedHemorrhoidsICD-10: K64.9 ICD-9: 455.602/5ActivePVD (peripheral vascular disease)ICD-10: I73.9 ICD-9: 443.9025ActiveHyperlipidemia associated with type 2 diabetes mellitusICD-10: E11.69 ICD-9: 250.8001/5ActiveLow back painICD-10: M54.50 ICD-9: 724.210ctivePhysical deconditioningICD-10: R53.81 ICD-9: 799.310ctiveAdvanced care planning - to document end of life ogylasamtblEizolap89/24/2024ctiveHistory of anemia due to CKDICD-10: N18.9 ICD-9: 585.909ctiveHx of deep venous thrombosisICD-10: Z86.718 ICD-9: V12.51002/08/2024ctiveLearning disabilityICD-10: F81.9 ICD-9: 315.209ctiveReducible umbilical herniaICD-10: K42.9 ICD-9: 553.109ctiveVitamin D deficiencyICD-10: E55.9 ICD-9: 268.909ctiveCallus of heelICD-10: L84 ICD-9: 15789esolvedGout due to renal impairmentICD-10: M10.30 ICD-9: 274.10010/12/2023esolvedHyperhidrosis [...] breathICD-10: R06.02 ICD-9: 786.0504esolvedSkin tagICD-10: L91.8 ICD-9: 701.904esolvedInappropriate sexual behaviorICD-10: Z72.89 ICD-9: 312.8910/3ActivePre-op evaluationICD-10: Z01.818 ICD-9: V72.8403/ctiveSecondary hypertensionICD-10: I15.9 ICD-9: 405.9903/3ActiveDepressionICD-10: F32.9 ICD-9: 66901/2ResolvedDVT (deep venous thrombosis)ICD-10: I82.409 ICD-9: 453.40092ResolvedEncounter for immunizationICD-10: Z23 ICD-9: V03.89092ResolvedLong term (current) use of insulinICD-10: Z79.4 092ResolvedMuscular painICD-10: M79.10 ICD-9: 729.1092ResolvedHypertension associated with diabetesICD-10: [...] to other viral communicable diseasesICD-10: Z20.828 ICD-9: V01.79023810WlrgmghaGhfvhxknKkdvjcp46/28/2020ActiveDiabetes mellitus Type 2Jaozccz06/28/2020ActiveAnemia in chronic kidney diseaseICD-10: D63.1 02/12/2020ResolvedHyperlipidemia, unspecifiedICD-10: E78.Resolved Medications Medication Codes Instructions Start Date Stop Date Status Fill Instructions omeprazole 20 mg capsule,delayed release RxNorm: 809489 Take 1 Capsule(s) Oral QD 03/05/20 25 026 Active omeprazole 20 mg capsule,delayed release RxNorm: 203102 Take 1 Capsule(s) Oral QD 03/05/20 25 025 Inactive Calmoseptine 0.44 %-20.6 % topical ointment RxNorm: 4448837 apply topically to affected underarm and breast BID for 2 weeks then BID PRN. 03/01/20 25 026 Active Calmoseptine 0.44 %-20.6 % topical ointment RxNorm: 1406177 apply topically to affected underarm and breast BID for 2 weeks then BID PRN. 03/01/20 25 025 Inactive pregabalin 100 mg capsule RxNorm: 928104 1 CAPSULE BY MOUTH EVERY MORNING (DX: NEUROPATHY) 02/21/20 25 026 Active PLEASE SEND NEW RX, FACILITY IS REQUESTING MEDICATION. THANKS pregabalin 150 mg capsule RxNorm: 034527 1 CAPSULE BY MOUTH AT BEDTIME (DX: NEUROPATHY) 01/13/20 25 026 Active PLEASE SEND NEW RX, PATIENT IS ALMOST OUT. THANKS! clotrimazole 1 % topical cream RxNorm: 828924 apply one application to affected and surrounding area(s) of skin BID until clinical resolution (abdominal and thigh folds), typically 1-4 weeks.Pause nystatin powder use while using clotrimazole cream. 01/03/20 25 025 Inactive clotrimazole 1 % topical cream RxNorm: 013820 apply one application to affected and surrounding area(s) of skin BID until clinical resolution (abdominal and thigh folds), typically 1-4 weeks. Pause nystatin powder use while using clotrimazole cream. 01/03/20 25 025 Inactive Culturelle 10 billion cell capsule RxNorm: 119983 Take 1 Capsule(s) Oral QD 11/08/19 25 026 Active Culturelle 10 billion cell capsule RxNorm: 246344 Take 1 Capsule(s) Oral QD 11/08/19 25 025 Inactive hydrocodone 5 mg-acetaminophen 325 mg tablet RxNorm: 374380 Take 1 Tablet(s) Oral Q4H every four hours as needed for pain PRN for severe acute dental pain 10/21/19 25 025 Inactive penicillin V potassium 500 mg tablet RxNorm: 992569 Take 1 Tablet(s) Oral QID Take until dental appointment per ER recommendation 10/21/19 25 025 Inactive hydrocodone 5 mg-acetaminophen 325 mg tablet RxNorm: 402663 Take 1 Tablet(s) Oral Q4H every four hours as needed for pain PRN for severe acute dental pain 10/21/19 25 025 Inactive penicillin V potassium 500 mg tablet RxNorm: 579501 Take 1 Tablet(s) Oral QID Take until dental appointment per ER recommendation 10/21/19 25 025 Inactive potassium chloride ER 20 mEq tablet,extended release RxNorm: 928316 Take 2 Tablet(s) Oral TID (dx: hypokalemia) 09/14/19 25 026 Active potassium chloride ER 20 mEq tablet,extended release RxNorm: 830371 Take 2 Tablet(s) Oral TID (dx: hypokalemia) 09/14/19 25 025 Inactive loperamide 2 mg tablet RxNorm: 984770 Take 2 Tablet(s) Oral UD as directed [...] Date Active senna 8.6 mg tablet RxNorm: 763192 Take 1 Tablet(s) Oral QD as needed and 1 tab BID prn 09/06/19 No Stop Date Active cyclobenzaprine 10 mg tablet RxNorm: 688988 Take 1 Tablet(s) Oral QHS every night at bedtime as needed 09/06/19 No Stop Date Active loperamide 2 mg tablet RxNorm: 295990 Take 2 Tablet(s) Oral UD as directed as needed 2 tabs after first loose stool then 1 tab after each subsequent stool PRN Do not exceed 4 doses in 24 hours. Do not administer until after 3 loose stools. 09/06/19 25 026 Active pioglitazone 15 mg tablet RxNorm: 136651 Take 1 Tablet(s) Oral QD 09/06/19 No Stop Date Active loperamide 2 mg tablet RxNorm: 519673 Take 2 Tablet(s) Oral UD as directed as needed 2 tabs after first loose stool then 1 tab after each subsequent stool PRN Do not exceed 4 doses in 24 hours. Do not administer until after 3 loose stools. 09/06/19 25 025 Inactive pregabalin 100 mg capsule RxNorm: 296571 1 CAPSULE BY MOUTH EVERY MORNING (DX: NEUROPATHY) 08/23/19 25 025 Inactive FACILITY IS REQUESTING REFILL. PRIOR RX HAS BEEN EXHAUSTED. THANK YOU. pregabalin 150 mg capsule RxNorm: 256614 1 CAPSULE BY MOUTH AT BEDTIME (DX: NEUROPATHY) 08/21/19 25 025 Inactive FACILITY IS REQUESTING A REFILL OF THIS MEDICATION, THANK YOU! senna 8.6 mg tablet RxNorm: 163338 Take 1 Tablet(s) Oral QD as needed for constipation on day 2 of no bowel movement 08/09/19 25 025 Inactive Miralax 17 gram/dose oral powder RxNorm: 790240 Administer 17 Gram(s) Oral QD as needed for constipation on day 3 of no bowel movement 08/09/19 25 025 Inactive senna 8.6 mg tablet RxNorm: 950117 Take 1 Tablet(s) Oral QD as needed for constipation on day 2 of no bowel movement 08/09/19 25 025 Inactive Miralax 17 gram/dose oral powder RxNorm: 532453 Administer 17 Gram(s) Oral QD as needed for constipation on day 3 of no bowel movement 08/09/19 25 025 Inactive pregabalin 100 mg capsule RxNorm: 621072 Take 1 Capsule(s) Oral QAM every morning [...] (Concentrated) Insulin 500 unit/mL subcutaneous soln RxNorm: 546628 Inject 100 Unit(s) Subcutaneous AC before meals Three times daily before meals. 07/24/19 25 025 Inactive ammonium lactate 12 % topical cream RxNorm: 088002 Apply 1 Application Topical BID 07/20/19 No Stop Date Active ezetimibe 10 mg tablet RxNorm: 343149 Take 1 Tablet(s) Oral QD 07/18/19 No Stop Date Active senna 8.6 mg tablet RxNorm: 497713 Take 1 Tablet(s) Oral QD 07/18/19 25 025 Inactive metoprolol succinate ER 200 mg tablet,extended release 24 hr RxNorm: 016495 Take 1 Tablet(s) Oral QD 06/19/19 No Stop Date Active hydralazine 50 mg tablet RxNorm: 083880 Take 1 Tablet(s) Oral QID 06/19/19 No Stop Date Active carbamazepine 200 mg tablet RxNorm: 532467 Take 1 Tablet(s) Oral BID 06/19/19 25 No Stop Date Active amlodipine 10 mg tablet RxNorm: 509655 Take 1 Tablet(s) Oral QD 06/19/19 25 No Stop Date Active Eliquis 5 mg tablet RxNorm: 0585933 Take 1 Tablet(s) Oral BID 06/19/19 25 No Stop Date Active pantoprazole 40 mg tablet,delayed release RxNorm: 133109 Take 1 Tablet(s) Oral QAM every morning 06/19/19 25 025 Inactive pen needle, diabetic 30 gauge x 3/16 RxNorm: Use 1 6 times per day w/insulin 06/14/19 25 026 Active pen needle, diabetic 30 gauge x 3/16 RxNorm: Use 1 needle 6 times per day w/insulin 06/14/19 25 025 Inactive nystatin 100,000 unit/gram topical powder RxNorm: 264904 Apply 1 Application Topical BID as needed abdominal/breast/ groin folds 05/24/19 25 026 Active pregabalin 100 mg capsule RxNorm: 542028 Take 1 Capsule(s) Oral QAM every morning 05/22/19 25 025 Inactive nystatin 100,000 unit/gram topical powder RxNorm: 257746 Apply 1 Application Topical BID as needed abdominal/breast/ groin folds 04/11/20 24 024 Inactive chlorthalidone 25 mg tablet RxNorm: 413466 Take 1 Tablet(s) Oral QAM every morning 04/06/20 24 No Stop Date Active pregabalin 150 mg capsule RxNorm: 714778 Take 1 Capsule(s) Oral QHS every night at bedtime 03/31/20 24 024 Inactive Vascepa 1 gram capsule RxNorm: 7137936 Take 2 Capsule(s) Oral BID 03/30/20 24 025 Inactive rosuvastatin 40 mg tablet RxNorm: 703405 1 TAB ORALLY EVERY EVENING (DX:CORONARY ARTERY DISEASE) 03/28/20 24 No Stop Date Active venlafaxine ER 75 mg capsule,extended release 24 hr RxNorm: 168368 3 CAPS (225MG) ORALLY DAILY (DX: MOOD DISORDER) 11/12/20 24 No Stop Date Active pregabalin 100 mg capsule RxNorm: 595239 Take 1 Capsule(s) Oral QAM every morning 03/20/20 Inactive cholecalciferol (vitamin D3) 1,250 mcg (50,000 unit) capsule RxNorm: 563926 Take 1 Capsule(s) Oral QW once a [...] Insulin 100 unit/mL (3 mL) subcutaneous RxNorm: 3352330 Inject 40 Unit(s) Subcutaneous BID 03/07/20 Inactive Please dispense one month supply. Humulin R U-500 (Concentrated) Insulin 500 unit/mL subcutaneous soln RxNorm: 788436 Inject 100 Unit(s) Subcutaneous AC before meals [...] PRN) to be use with new Accu Pinnacle meter 03/04/20 24 Inactive ok to substitute with any covered alternative test strip FreeStyle Chema 2 Sensor kit RxNorm: Use UD as directed 03/02/20 Inactive Pen Needle 30 gauge x 5/16 RxNorm: Pen(s) Use 1 needle as directed TID 03/02/20 Inactive nystatin 100,000 unit/gram topical powder RxNorm: 261724 Apply 1 Application Topical BID as needed [...] (Concentrated) Insulin 500 unit/mL subcutaneous soln RxNorm: 422982 Inject 100 Unit(s) Subcutaneous TID 02/17/20 24 024 Inactive Humulin R U-500 (Concentrated) Insulin 500 unit/mL subcutaneous soln RxNorm: 372607 Inject 100 Unit(s) Subcutaneous TID 02/10/20 24 024 Inactive Basaglar KwikPen U-100 Insulin 100 unit/mL (3 mL) subcutaneous RxNorm: 6499562 Inject 30 Unit(s) Subcutaneous BID 02/10/20 24 024 Inactive Please dispense one month supply. pregabalin 100 mg capsule RxNorm: 746669 Take 1 Capsule(s) Oral QAM every morning 02/07/20 24 024 Inactive isosorbide mononitrate ER 60 mg tablet,extended release 24 hr RxNorm: 419471 Take 1 Tablet(s) Oral QD 02/01/20 24 025 Inactive aripiprazole 15 mg tablet RxNorm: 025480 Take 1/2 Tablet(s) Oral QD 02/01/20 24 025 Inactive torsemide 20 mg tablet RxNorm: 234307 1 TAB ORALLY DAILY (DX: EDEMA) 01/27/20 No Stop Date Active potassium chloride ER 20 mEq tablet,extended release(part/cryst) RxNorm: 8971762 2 TABS (40MEQ) ORALLY TWICE DAILY (DX: HYPOKALEMIA) 01/27/20 24 025 Inactive cephalexin 500 mg capsule RxNorm: 246317 Take 1 Capsule(s) Oral QID 12/17/19 24 024 Inactive cephalexin 500 mg capsule RxNorm: 978125 Take 1 Capsule(s) Oral QID 12/17/19 24 024 Inactive acetaminophen 500 mg tablet RxNorm: 550570 (MAX APAP:4GM/24HR) Take 1 Tablet(s) Oral TID as needed for pain 12/10/19 24 024 Inactive torsemide 20 mg tablet RxNorm: 179470 Take 1 Tablet(s) Oral QD 10/26/19 24 024 Inactive potassium chloride ER 20 mEq tablet,extended release RxNorm: 19800522 Take 2 Tablet(s) Oral BID 10/26/19 24 024 Inactive torsemide 20 mg tablet RxNorm: 392982 Take 1 Tablet(s) Oral QD 10/26/19 24 Inactive potassium chloride ER 20 mEq tablet,extended release RxNorm: 19800522 Take 2 Tablet(s) Oral BID 10/26/19 24 025 Inactive Artificial Tears (PF) 0.1 %-0.3 % drops in a dropperette RxNorm: 596241 Apply 1-2 Drop(s) Both eyes BID as needed 09/28/19 24 025 Inactive erythromycin 5 mg/gram (0.5 %) eye ointment RxNorm: 998171 Apply 1 Application Both eyes QHS every night at bedtime Instill ~1 cm ribbon into affected eye 09/28/19 024 Inactive Artificial Tears (PF) 0.1 %-0.3 % drops in a dropperette RxNorm: 919591 Apply 1-2 Drop(s) Both eyes BID as needed 09/28/19 24 Inactive erythromycin 5 mg/gram (0.5 %) eye ointment RxNorm: 942982 Apply 1 Application Both eyes QHS every night at bedtime Instill ~1 cm ribbon into affected eye 09/28/19 24 Inactive acetaminophen 500 mg tablet RxNorm: 567815 (MAX APAP:4GM/24HR) Take 1 Tablet(s) Oral TID as needed for pain 09/24/19 24 Inactive carvedilol 25 mg tablet RxNorm: 033001 Take 1 Tablet(s) Oral QD 09/08/19 24 No Stop Date Active pregabalin 100 mg capsule RxNorm: 920323 Take 1 Capsule(s) Oral QAM every morning 09/07/19 24 Inactive bisacodyl 10 mg rectal suppository RxNorm: 589911 Insert 1 Suppository Rectal QD as needed 07/13/19 24 No Stop Date Active ketoconazole 2 % shampoo RxNorm: 695118 Apply 1 Application Topical UD as directed 07/13/19 24 No Stop Date Active Ozempic 1 mg/dose (4 mg/3 mL) subcutaneous pen injector RxNorm: 7754106 Inject 1 Milligram(s) Subcutaneous QW once a week 07/13/19 24 No Stop Date Active Guaifenesin AC 10 mg-100 mg/5 mL oral liquid RxNorm: 952587 Take 10 Milliliter(s) Oral Q4H every four hours as needed 07/13/19 24 No Stop Date Active hydrocortisone 2.5 % topical cream RxNorm: 915140 Apply 1 Application Topical BID as needed 07/13/19 24 No Stop Date Active rosuvastatin 40 mg tablet RxNorm: 023399 Take 1 Tablet(s) Oral QPM every evening 07/13/19 24 024 Inactive ezetimibe 10 mg tablet RxNorm: 811657 Take 1 Tablet(s) Oral QD 07/13/19 24 025 Inactive polyethylene glycol 3350 17 gram/dose oral powder RxNorm: 656533 Take 17 Gram(s) Oral BID as needed mix in 4-8ox water 07/13/19 24 025 Inactive aripiprazole 15 mg tablet RxNorm: 175185 Take 1/2 Tablet(s) Oral QD 07/13/19 24 024 Inactive isosorbide mononitrate ER 60 mg tablet,extended release 24 hr RxNorm: 324514 Take 1 Tablet(s) Oral QD 07/13/19 24 024 Inactive ammonium lactate 12 % topical cream RxNorm: 250355 Apply 1 Application Topical BID 07/13/19 24 025 Inactive rosuvastatin 20 mg sprinkle capsule RxNorm: 4916391 Take 1 Capsule(s) Oral QD 07/13/19 24 025 Inactive Vascepa 1 gram capsule RxNorm: 4915602 Take 2 Capsule(s) Oral BID 07/13/19 24 024 Inactive venlafaxine ER 75 mg capsule,extended release 24 hr RxNorm: 204660 Take 3 Capsule(s) Oral QD 07/13/19 24 024 Inactive Basaglar KwikPen U-100 Insulin 100 unit/mL (3 mL) subcutaneous RxNorm: 3810579 Inject 30U SubQ twice daily 07/07/19 24 024 Inactive Please dispense one month supply. Basaglar KwikPen U-100 Insulin 100 unit/mL (3 mL) subcutaneous RxNorm: 4917984 Inject 30U SubQ twice daily 07/07/19 24 024 Inactive Please dispense one month supply. pregabalin 150 mg capsule RxNorm: 383595 Take 1 Capsule(s) Oral QHS every night at bedtime 07/05/19 24 024 Inactive pregabalin 150 mg capsule RxNorm: 672069 Take 1 Capsule(s) Oral QHS every night at bedtime 07/05/19 24 024 Inactive polyethylene glycol 3350 17 gram/dose oral powder RxNorm: 251338 Take 1 Packet Oral QD as needed (1 packet = 17g) mix with 4-8oz of liquid 06/15/19 24 024 Inactive bisacodyl 10 mg rectal suppository RxNorm: 024344 Insert one suppository per rectum once daily as needed for constipation 06/15/19 024 Inactive bisacodyl 10 mg rectal suppository RxNorm: 736182 Insert one suppository per rectum once daily as needed for constipation 06/15/19 024 Inactive pregabalin 100 mg capsule RxNorm: 250919 Take 1 Capsule(s) Oral QAM every morning 04/27/20 024 Inactive Levemir FlexPen 100 unit/mL (3 mL) solution subcutaneous insulin pen RxNorm: 937354 Inject 30 Unit(s) Subcutaneous BID 04/27/20 024 Inactive rosuvastatin 40 mg tablet RxNorm: 293343 Take 1 Tablet(s) Oral QPM every evening 04/16/20 024 Inactive D/C rosuvastatin 20mg venlafaxine ER 75 mg capsule,extended release 24 hr RxNorm: 873139 Take 3 Capsule(s) Oral QD 04/14/20 023 Inactive pregabalin 100 mg capsule RxNorm: 733153 Take 1 Capsule(s) Oral QAM every morning [...] strip clotrimazole 1 % topical cream RxNorm: 148073 Take apply topically to abdominal folds twice daily for 14 days 03/12/20 024 Inactive Ozempic 1 mg/dose (4 mg/3 mL) subcutaneous pen injector RxNorm: 4546336 Inject 1 Milligram(s) Subcutaneous QW once a week 03/11/20 023 Inactive rosuvastatin 20 mg tablet RxNorm: 957927 Take 1 Tablet(s) Oral QD 02/26/20 23 023 Inactive d/c pravastatin 80mg Ozempic 1 mg/dose (4 mg/3 mL) subcutaneous pen injector RxNorm: 9544101 Inject 1 Milligram(s) Subcutaneous QW once a week 02/20/20 23 023 Inactive pregabalin 150 mg capsule RxNorm: 111853 Take 1 Capsule(s) Oral HS at bed time 02/19/20 23 023 Inactive pregabalin 100 mg capsule RxNorm: 190102 Take 1 Capsule(s) Oral QAM every morning 02/18/20 23 023 Inactive venlafaxine ER 75 mg capsule,extended release 24 hr RxNorm: 965052 Take 3 Capsule(s) Oral QD 02/04/20 23 023 Inactive FreeStyle Chema 2 Sensor kit RxNorm: use as directed 02/04/20 23 023 Inactive FreeStyle Chema 2 Sensor kit RxNorm: use as directed 02/04/20 23 024 Inactive fluconazole 150 mg tablet RxNorm: 035598 Take 1 Tablet(s) Oral on day 3 and on day 6 02/03/20 23 024 Inactive venlafaxine ER 150 mg capsule,extended release 24 hr RxNorm: 163652 Take 1 Capsule(s) Oral QD 02/03/20 23 023 Inactive chlorthalidone 25 mg tablet RxNorm: 562446 Take 1 Tablet(s) Oral QAM every morning 02/03/20 23 024 Inactive acetaminophen 500 mg tablet RxNorm: 969919 1 TABLET ORALLY 3 TIMES DAILY (MAX APAP:4GM/24HR) 12/15/19 23 023 Inactive potassium chloride ER 20 mEq tablet,extended release RxNorm: 963914 Take 1 Tablet(s) Oral BID 12/09/19 23 024 Inactive d/c 20mEq once daily (sent from hospital) clotrimazole 1 % topical cream RxNorm: 090746 apply 1g topically to top of feet and in between toes BID 12/09/19 23 025 Inactive nystatin 100,000 unit/gram topical powder RxNorm: 611032 APPLY TO AFFECTED AREAS TOPICALLY 2 TIMES DAILY 11/21/19 23 023 Inactive Nystop 100,000 unit/gram topical powder RxNorm: 835557 Apply to abd folds, under breasts and L side of groin Topical BID x 14 days, then BID PRN 11/20/19 023 Inactive dx: yeast dermatitis Bengay Ultra Strength 4 %-30 %-10 % topical cream RxNorm: 295553 Apply 1 Gram(s) Topical QID PRN to feet and legs for neuropathic pain 11/11/19 024 Inactive hydrocortisone 2.5 % topical cream RxNorm: 111758 Apply 1/2 Gram(s) Topical BID as needed 11/10/19 024 Inactive clotrimazole 1 % topical cream RxNorm: 698640 Apply 1/2 Gram(s) Topical BID Apply to affected areas of groin, periarea, and abdominal topically 2 times daily 11/10/19 025 Inactive Levemir FlexPen 100 unit/mL (3 mL) solution subcutaneous insulin pen RxNorm: 010596 Inject 30 Unit(s) Subcutaneous BID 10/07/19 23 023 Inactive Humulin R U-500 (Concentrated) Insulin 500 unit/mL subcutaneous soln RxNorm: 817586 Inject 100 Unit(s) Subcutaneous TID 10/07/19 024 Inactive Ozempic 0.25 mg or 0.5 mg (2 mg/3 mL) subcutaneous pen injector RxNorm: 3723736 Inject 1/2 Milligram(s) Subcutaneous QW once a week 10/07/19 024 Inactive aripiprazole 15 mg tablet RxNorm: 303781 1/2 TAB (7.5MG) ORALLY DAILY (DX:MAJOR DEPRESSIVE DISORDER) 09/23/19 023 Inactive Accu-Chek Guide test strips RxNorm: Use 1 Test Strip QID 09/15/19 23 023 Inactive ok to substitute with any covered alternative test strip Lancets,Thin 28 gauge RxNorm: Use 1 as directed QID 09/15/19 23 023 Inactive torsemide 20 mg tablet RxNorm: 742238 Take 1 Tablet(s) Oral BID 09/09/19 23 024 Inactive d/c once daily dosing carvedilol 25 mg tablet RxNorm: 913334 Take 1 Tablet(s) Oral QD 08/25/19 23 024 Inactive pregabalin 150 mg capsule RxNorm: 423117 1 Capsule(s) Oral HS at bed time 08/18/19 23 023 Inactive pregabalin 100 mg capsule RxNorm: 199103 1 Capsule(s) Oral QAM every morning 08/18/19 23 023 Inactive carvedilol 25 mg tablet RxNorm: 839714 1 Tablet(s) Oral QD 07/28/19 23 023 Inactive lisinopril 20 mg tablet RxNorm: 884411 Give 1 Tablet(s) Oral QD 07/28/19 23 023 Inactive Lyrica 150 mg capsule RxNorm: 621360 Take 1 Capsule(s) Oral QHS every night at bedtime 07/19/19 23 023 Inactive d/c 100mg dose Diflucan 150 mg tablet RxNorm: 097744 Take 1 Tablet(s) Oral QD repeat on day 3 and 6 07/19/19 23 023 Inactive pregabalin 100 mg capsule RxNorm: 930502 Take 1 Capsule(s) Oral QAM every morning 07/19/19 23 023 Inactive gatifloxacin 0.5 % eye drops RxNorm: 974493 Instill 1 Drop(s) as directed TID Instill 1 drop in to affected eye(s) starting 1 day prior to surgery and continue until gone (do not exceed 4 weeks). 07/13/19 23 023 Inactive carvedilol 25 mg tablet RxNorm: 997656 2 Tablet(s) Oral BID 07/13/19 23 023 Inactive Humulin R Regular U-100 Insulin 100 unit/mL injection solution RxNorm: 046637 85 Unit(s) Injection TID 07/13/19 23 023 Inactive ketorolac 0.5 % eye drops RxNorm: 778105 Instill 1 Drop(s) as directed QID Instill 1 drop into affected eye(s) 4 times daily starting 1 day prior to surgery and continue until gone (do not exceed 4 weeks). 07/13/19 23 023 Inactive Diflucan 150 mg tablet RxNorm: 973995 Take 1 Tablet(s) Oral QD repeat on day 3 and 6 06/30/19 23 023 Inactive Accu-Chek Guide test strips RxNorm: Use 1 Test Strip QID Use 1 test strip to monitor blood glucose 4 times daily and as needed. Dx:E11.42. 06/23/19 023 Inactive ok to substitute with any covered alternative test strip dextromethorphan-gu aifenesin 10 mg-100 mg/5 mL oral liquid RxNorm: 069543 Take 10 Milliliter(s) Oral every 4 hours as needed for cough 06/19/19 023 Inactive dextromethorphan-gu aifenesin 10 mg-100 mg/5 mL oral liquid RxNorm: 407652 Take 10 Milliliter(s) Oral every 4 hours as needed for cough 06/19/19 23 023 Inactive Lyrica 150 mg capsule RxNorm: 116642 Take 1 Capsule(s) Oral QHS every night at bedtime 06/18/19 23 023 Inactive d/c 100mg dose aripiprazole 15 mg tablet RxNorm: 765227 1/2 TAB (7.5MG) ORALLY DAILY (DX:MAJOR DEPRESSIVE DISORDER) 06/05/19 23 023 Inactive pregabalin 100 mg capsule RxNorm: 966128 1 Capsule(s) Oral QAM every morning 06/02/19 23 023 Inactive Banophen 50 mg capsule RxNorm: 7957735 Take 1 Capsule(s) Oral Q6H every 6 hours as needed 05/19/19 23 No Stop Date Active Novolog Flexpen U-100 Insulin aspart 100 unit/mL (3 mL) subcutaneous RxNorm: 5973700 Inject 10 Unit(s) Subcutaneous QHS every night at bedtime with nighttime snack 04/08/20 22 022 Inactive Novolog Flexpen U-100 Insulin aspart 100 unit/mL (3 mL) subcutaneous RxNorm: 0219728 Inject 42 Unit(s) Subcutaneous TID in addition to sliding scale 04/08/20 022 Inactive d/c 36u albuterol sulfate HFA 90 mcg/actuation aerosol inhaler RxNorm: 5887132 Take 2 Puff(s) Inhalation Q4H every four hours as needed as needed for SOB, cough, or wheezing 04/07/20 030 Active Banophen 50 mg capsule RxNorm: 2432577 Take 1 Capsule(s) Oral Q6H every 6 hours as needed 04/06/20 023 Inactive diphenhydramine 50 mg tablet RxNorm: 9808259 Take 1 Tablet(s) Oral Q6H every 6 hours as needed 04/06/20 022 Inactive diphenhydramine 50 mg tablet RxNorm: 3663705 1 Tablet(s) Oral Q6H every 6 hours as needed 04/06/20 022 Inactive Abilify 15 mg tablet RxNorm: 242403 1/2 Tablet(s) Oral QD 03/10/20 023 Inactive Shingrix (PF) 50 mcg/0.5 mL intramuscular suspension, kit RxNorm: 1837849 Administer 1/2 Milliliter(s) Intramuscular QD one time shingrix step 2 ( step 1 given 11/04/21) WITH needle - Nursing please administer upon arrival and once administered post a 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, 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, 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, and lot# so we can update [facility] 02/18/20 22 022 Inactive dispense with needle Shingrix (PF) 50 mcg/0.5 mL intramuscular suspension, kit RxNorm: 5687770 Administer 1/2 Milliliter(s) Intramuscular QD one time shingrix step 2 ( step 1 given 11/04/21) WITH needle - Nursing please administer upon arrival and once administered post a bridge message 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, 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, 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, and lot# so we can update [facility] 02/18/20 22 022 Inactive dispense with needle Lyrica 100 mg capsule RxNorm: 849323 Take 1 Capsule(s) Oral QAM every morning 01/08/20 22 022 Inactive d/c 50mg dose acetaminophen 500 mg tablet RxNorm: 969537 Take 1 Tablet(s) Oral TID 01/08/20 22 022 Inactive d/c PRN order Lyrica 150 mg capsule RxNorm: 074839 Take 1 Capsule(s) Oral QHS every night at bedtime 01/08/20 22 023 Inactive d/c 100mg dose polyethylene glycol 3350 17 gram/dose oral powder RxNorm: 906543 Take 17=1 capful Gram(s) Oral QD mix with 4-8oz of liquid 01/08/20 22 025 Inactive take this in addition to BID prn order Abilify 5 mg tablet RxNorm: 508777 Take 1 Tablet(s) Oral QD take 1 tab po QD #30 refill 5 dx: MDD 12/12/19 22 022 Inactive Abilify 5 mg tablet RxNorm: 927781 Take 1 Tablet(s) Oral QD take 1 tab po QD #30 refill 5 dx: MDD 12/12/19 22 022 Inactive Novolog Flexpen U-100 Insulin aspart 100 unit/mL (3 mL) subcutaneous RxNorm: 9908502 Inject 42 Unit(s) Subcutaneous TID in addition to sliding scale 12/10/19 22 Inactive d/c 36u chlorthalidone 25 mg tablet RxNorm: 059807 Take 1 Tablet(s) Oral QAM every morning 12/10/19 22 023 Inactive pregabalin 50 mg capsule RxNorm: 783991 Take 1 Capsule(s) Oral QAM every morning 11/12/19 22 022 Inactive tetanus-diphtheria toxoids-Td 2 Lf unit-2 Lf unit/0.5 mL IM suspension RxNorm: 139 Take 0.5 Miscellaneous Intramuscular 11/12/19 22 022 Inactive need tdap - nursing to administer upon arrival pregabalin 50 mg capsule RxNorm: 000800 Take 1 Capsule(s) Oral QAM every morning 10/16/19 22 022 Inactive pregabalin 50 mg capsule RxNorm: 240700 Take 1 Capsule(s) Oral QAM every morning 10/16/19 22 06/27/2 022 Inactive pregabalin 50 mg capsule RxNorm: 277074 1 Capsule(s) Oral QAM every morning 10/15/19 22 Inactive Shingrix (PF) 50 mcg/0.5 mL intramuscular suspension, kit RxNorm: 7610690 Administer 1/2 Milliliter(s) Intramuscular one time Nursing please administer upon arrival and once administered post a bridge message 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, expiration date, and lot# so [...] aspart 100 unit/mL (3 mL) subcutaneous RxNorm: 4909608 Inject 10 Unit(s) Subcutaneous QHS every night at bedtime with nighttime snack 10/08/19 22 Inactive Shingrix (PF) 50 mcg/0.5 mL intramuscular suspension, kit RxNorm: 9908335 ADMINISTER 2-DOSE SERIES PER CDC GUIDELINES 10/08/19 22 Active Shingrix (PF) 50 mcg/0.5 mL intramuscular suspension, kit RxNorm: 3630392 ADMINISTER 2-DOSE SERIES PER CDC GUIDELINES 10/08/19 22 022 Inactive Novolog Flexpen U-100 Insulin aspart 100 unit/mL (3 mL) subcutaneous RxNorm: 8956472 Inject 36 Unit(s) Subcutaneous TID in addition to sliding scale 10/08/19 022 Inactive cholecalciferol (vitamin D3) 1,250 mcg (50,000 unit) capsule RxNorm: 680722 Take 1 Capsule(s) Oral QW once a week 10/08/19 024 Inactive Novofine Autocover 30 gauge x 1/3 needle RxNorm: Use 1 Miscellaneous UD as directed Use 1 needle as directed to administer insulin 5 times a day Dx:E11.42. 10/03/19 22 022 Inactive ok to substitute with any covered alternative pen needle benzoyl peroxide 10 % topical cleanser RxNorm: 082825 Apply 1 Application Topical QD apply to face, wash rinse and dry once daily (may change to QOD if drying) 08/19/19 22 022 Inactive (%covered by insurance) #60ml refill 11 dx: acne benzoyl peroxide 10 % topical cleanser RxNorm: 140667 Apply 1 Application Topical QD apply to face, wash rinse and dry once daily (may change to QOD if drying) 08/19/19 22 022 Inactive (%covered by insurance) #60ml refill 11 dx: acne benzoyl peroxide 10 % topical cleanser RxNorm: 035777 Apply 1 Application Topical QD apply to face, wash rinse and dry once daily (may change to QOD if drying) 08/19/19 22 022 Inactive (%covered by insurance) #60ml refill 11 dx: acne Lyrica 50 mg capsule RxNorm: 759719 Take 1 Capsule(s) Oral QAM every morning Take 1 capsule by mouth once daily 08/19/19 22 022 Inactive benzoyl peroxide 10 % topical cleanser RxNorm: 270632 Apply 1 Application Topical QD apply to face, wash rinse and dry once daily (may change to QOD if drying) 08/19/19 22 022 Inactive (%covered by insurance) #60ml refill 11 dx: acne Lyrica 100 mg capsule RxNorm: 883953 Take 1 Capsule(s) Oral QHS every night at bedtime Take 1 capsule by mouth once daily at bedtime 08/19/19 22 022 Inactive Lyrica 100 mg capsule RxNorm: 248301 Take 1 Capsule(s) Oral QHS every night at bedtime Take 1 capsule by mouth once daily at bedtime 08/16/19 22 022 Inactive Lyrica 50 mg capsule RxNorm: 325589 Take 1 Capsule(s) Oral QAM every morning Take 1 capsule by mouth once daily 08/16/19 22 022 Inactive Levemir FlexTouch U-100 Insulin 100 unit/mL (3 mL) subcutaneous pen RxNorm: 111755 Inject 86 Unit(s) Subcutaneous BID 08/05/19 22 022 Inactive d/c 83units BID Lyrica 100 mg capsule RxNorm: 178081 Take 1 Capsule(s) Oral QHS every night at bedtime Take 1 capsule by mouth once daily at bedtime 07/14/19 22 022 Inactive Lyrica 50 mg capsule RxNorm: 221454 Take 1 Capsule(s) Oral QAM every morning Take 1 capsule by mouth once daily 07/14/19 22 022 Inactive Levemir FlexTouch U-100 Insulin 100 unit/mL (3 mL) subcutaneous pen RxNorm: 834866 Inject 83 Unit(s) Subcutaneous BID 07/08/19 22 [...] test strip hydralazine 50 mg tablet RxNorm: 994643 Take 1 Tablet(s) Oral QID 05/05/20 21 022 Inactive venlafaxine ER 225 mg tablet,extended release 24 hr RxNorm: 142976 Take 1 Tablet(s) Oral QD 05/05/20 21 021 Inactive venlafaxine ER 225 mg tablet,extended release 24 hr RxNorm: 131759 Take 1 Tablet(s) Oral QD 05/05/20 21 022 Inactive isosorbide mononitrate ER 30 mg tablet,extended release 24 hr RxNorm: 635092 Take 1 Tablet(s) Oral QD 05/05/20 21 024 Inactive hydralazine 50 mg tablet RxNorm: 977249 Take 1 Tablet(s) Oral QID 05/05/20 21 021 Inactive aspirin 81 mg tablet,delayed release RxNorm: 563424 Take 1 Tablet(s) Oral QD 03/31/20 21 022 Inactive Vitamin D2 1,250 mcg (50,000 unit) capsule RxNorm: 9335112 Take 1 Capsule(s) Oral QW once a week x 12 weeks 03/31/20 022 Inactive Vitamin D2 1,250 mcg (50,000 unit) capsule RxNorm: 6764525 Take 1 Capsule(s) Oral QW once a week 11/15 021 Inactive Zetia 10 mg tablet RxNorm: 794037 Take 1 Tablet(s) Oral QD 03/31/20 024 Inactive Zetia 10 mg tablet RxNorm: 339148 Take 1 Tablet(s) Oral QD 03/31/20 021 Inactive hydralazine 25 mg tablet RxNorm: 867312 Take 1 Tablet(s) Oral QID 03/31/20 021 Inactive hydralazine 25 mg tablet RxNorm: 077913 Take 1 Tablet(s) Oral QID 03/31/20 021 Inactive hydralazine 10 mg tablet RxNorm: 797607 Take 1 Tablet(s) Oral QID 03/03/20 021 Inactive cephalexin 500 mg tablet RxNorm: 297332 Take 1 Tablet(s) Oral QID 02/27/20 021 Inactive cephalexin 500 mg tablet RxNorm: 668134 Take 1 Tablet(s) Oral QID 02/27/20 021 Inactive lisinopril 40 mg tablet RxNorm: 724374 Take 1 Tablet(s) Oral QD 02/11/20 023 Inactive Eliquis 5 mg tablet RxNorm: 0585911 Take 1 Tablet(s) Oral BID 01/05/20 21 025 Inactive Eliquis 5 mg tablet RxNorm: 8625587 Take 2 Tablet(s) Oral QD 01/01/20 21 021 Inactive Lyrica 50 mg capsule RxNorm: 944649 Take 1 Capsule(s) Oral QAM every morning 12/24/19 21 021 Inactive Lyrica 100 mg capsule RxNorm: 604654 Take 1 Capsule(s) Oral QHS every night at bedtime 12/24/19 21 021 Inactive clotrimazole 1 % topical cream RxNorm: 272212 Apply to right foot and toes Topical BID 12/04/19 21 023 Inactive metoprolol succinate ER 200 mg tablet,extended release 24 hr RxNorm: 024500 Take 1 Tablet(s) Oral QD 12/04/19 21 023 Inactive ciprofloxacin 500 mg tablet RxNorm: 883736 Take 1 Tablet(s) Oral QD 11/30/19 21 021 Inactive DX ofloxacin otic drops Accu-Chek Guide test strips RxNorm: USE 1 TO CHECK GLUCOSE 4 TIMES DAILY AND NEEDED 11/15/19 21 023 Inactive Blood Glucose Test strips RxNorm: Use 1 Test Strip QID at PRN 11/05/19 21 023 Inactive E11.42 lisinopril 30 mg tablet RxNorm: 407306 Take 1 Tablet(s) Oral QD 10/30/19 021 Inactive lisinopril 20 mg tablet RxNorm: 974147 Take 1 Tablet(s) Oral QD 10/23/19 021 Inactive lisinopril 20 mg tablet RxNorm: 542958 Take 1 Tablet(s) Oral QD 10/23/19 21 021 Inactive lisinopril 10 mg tablet RxNorm: 141038 Take 1 Tablet(s) Oral QD 10/02/19 021 Inactive icosapent ethyl 1 gram capsule RxNorm: 6990616 Take 2 Capsule(s) (2 gm) Oral BID with meals 09/12/19 024 Inactive Okay to dispense one 2gm tab if you have that available. icosapent ethyl 1 gram capsule RxNorm: 0403957 Take 2 Capsule(s) Oral BID 09/12/19 21 021 Inactive Okay to dispense one 2gm tab if you have that available. amlodipine 10 mg tablet RxNorm: 526549 Take 1 Tablet(s) Oral QD 09/04/19 21 021 Inactive aspirin 81 mg tablet,delayed release RxNorm: 986433 Take 1 Tablet(s) Oral QD 09/04/19 21 021 Inactive Levemir FlexTouch U-100 Insulin 100 unit/mL (3 mL) subcutaneous pen RxNorm: 586604 Inject 150 Unit(s) Subcutaneous BID 09/04/19 21 022 Inactive venlafaxine ER 150 mg tablet,extended release 24 hr RxNorm: 936477 Take 1 Tablet(s) Oral QD 09/04/19 21 021 Inactive clotrimazole-betame thasone 1 %-0.05 % topical cream RxNorm: 362989 Apply to rash on red area on left abdomen/chest Topical BID 08/10/19 21 021 Inactive amlodipine 5 mg tablet RxNorm: 263068 Take 1 Tablet(s) Oral QD 07/31/19 21 021 Inactive cephalexin 500 mg tablet RxNorm: 680114 Take 1 Tablet(s) Oral BID BID - Twice Daily 07/31/19 21 021 Inactive Start 08/01/20 pantoprazole 40 mg tablet,delayed release RxNorm: 452472 Take 1 Tablet(s) Oral QAM every morning 07/08/19 025 Inactive clopidogrel 75 mg tablet RxNorm: 728563 Take 1 Tablet(s) Oral QD 07/08/19 021 Inactive Blood Glucose Test strips RxNorm: Use 1 Test Strip QID at PRN 07/08/19 021 Inactive E11.42 senna 8.6 mg tablet RxNorm: 267284 Take 1 Tablet(s) Oral QD 07/08/19 025 Inactive Novolog Flexpen U-100 Insulin aspart 100 unit/mL (3 mL) subcutaneous RxNorm: 6903830 Administer per sliding scale Milliliter(s) Subcutaneous TID 151-200: 10 u; 201-250: 20 u; 251-300: 30 u; 301-350: 40 u; 351-400: 50 u. 07/08/19 022 Inactive lisinopril 5 mg tablet RxNorm: 911562 Take 1 Tablet(s) Oral QD 07/08/19 021 Inactive Novolog Flexpen U-100 Insulin aspart 100 unit/mL (3 mL) subcutaneous RxNorm: 7475532 Inject 85 Unit(s) Subcutaneous TID 07/08/19 21 022 Inactive pravastatin 80 mg tablet RxNorm: 588786 Take 1 Tablet(s) Oral QHS every night at bedtime 07/08/19 023 Inactive clotrimazole 1 % topical cream RxNorm: 103557 Apply to bilateral groin areas Topical BID 07/08/19 022 Inactive metoprolol succinate ER 200 mg tablet,extended release 24 hr RxNorm: 093502 Take 1 Tablet(s) Oral QD 07/08/19 021 Inactive Vitamin D3 25 mcg (1,000 unit) tablet RxNorm: 556986 Take 1 Tablet(s) Oral QD 07/08/19 021 Inactive isosorbide dinitrate 30 mg tablet RxNorm: 991236 Take 1 Tablet(s) Oral QD 07/08/19 21 021 Inactive carbamazepine 200 mg tablet RxNorm: 825290 Take 1 Tablet(s) Oral BID 07/08/19 21 025 Inactive Levemir FlexTouch U-100 Insulin 100 unit/mL (3 mL) subcutaneous pen RxNorm: 397690 Inject 140 Unit(s) Subcutaneous BID 07/08/19 021 Inactive torsemide 20 mg tablet RxNorm: 357446 Take 1 Tablet(s) Oral QD 07/08/19 023 Inactive venlafaxine 75 mg tablet RxNorm: 614423 Take 1 Tablet(s) Oral QD 07/08/19 021 Inactive acetaminophen 500 mg tablet RxNorm: 873727 Take 1 Tablet(s) Oral TID as needed for headache 06/18/19 021 Inactive acetaminophen 500 mg tablet RxNorm: 401421 Take 1 Tablet(s) Oral TID as needed for headache 06/18/19 021 Inactive Lyrica 100 mg capsule RxNorm: 373631 Take 1 Capsule(s) Oral QHS every night at bedtime 06/11/19 021 Inactive Lyrica 50 mg capsule RxNorm: 189577 Take 1 Capsule(s) Oral QAM every morning 06/10/19 21 021 Inactive hydrocortisone 2.5 % topical cream RxNorm: 118254 Apply to bilateral groin creases Topical BID 05/15/20 20 021 Inactive clotrimazole 1 % topical cream RxNorm: 701361 Apply to bilateral groin areas Topical BID 05/15/20 20 021 Inactive Lyrica 50 mg capsule RxNorm: 990129 Take 1 Capsule(s) Oral QAM every morning 05/14/20 20 Inactive Lyrica 100 mg capsule RxNorm: 373962 Take 1 Capsule(s) Oral QHS every night [...] Inactive Nystop 100,000 unit/gram topical powder RxNorm: 865592 Apply to abd folds, under breasts and L side of groin Topical BID x 14 days, then BID PRN 04/08/20 20 Inactive dx: yeast dermatitis Lyrica 100 mg capsule RxNorm: 157790 Take 1 Capsule(s) Oral QHS every night at bedtime 03/13/20 20 Inactive Lyrica 50 mg capsule RxNorm: 866722 Take 1 Capsule(s) Oral QAM every morning 03/13/20 20 Inactive ketoconazole 2 % shampoo RxNorm: 915394 Apply Topical two times a week with showers 03/11/20 20 024 Inactive cholecalciferol (vitamin D3) 50 mcg (2,000 unit) tablet RxNorm: 675084 Take 1 Tablet(s) Oral QD 03/11/20 20 021 Inactive Zetia 10 mg tablet RxNorm: 100879 Take 1 Tablet(s) Oral QD 03/07/20 20 021 Inactive Zetia 10 mg tablet RxNorm: 949688 Take 1 Tablet(s) Oral QD 03/07/20 20 Inactive Lyrica 50 mg capsule RxNorm: 535196 Take 1 Capsule(s) Oral QAM every morning 02/15/20 20 Inactive Lyrica 100 mg capsule RxNorm: 600603 Take 1 Capsule(s) Oral QHS every night at bedtime 02/15/20 20 Inactive Lyrica 100 mg capsule RxNorm: 405544 Take 1 Capsule(s) Oral QHS every night at bedtime 02/15/20 20 Inactive Lyrica 50 mg capsule RxNorm: 514209 Take 1 Capsule(s) Oral QAM every morning 02/15/20 20 Inactive venlafaxine ER 75 mg capsule,extended release 24 hr RxNorm: 803920 Take 3 Capsule(s) Oral QD 06/12/19 023 Inactive polyethylene glycol 3350 17 gram/dose oral powder RxNorm: 548877 Take 17=1 capful Gram(s) Oral BID as needed mix with 4-8oz of liquid 06/12/19 22 024 Inactive icosapent ethyl 1 gram capsule RxNorm: 4897115 Take 2 Capsule(s) (2 gm) Oral BID with meals 10/07/19 23 023 Inactive Okay to dispense one 2gm tab if you have that available. Levemir FlexTouch U-100 Insulin 100 unit/mL (3 mL) subcutaneous pen RxNorm: 543146 Inject 80 Unit(s) Subcutaneous BID 07/14/19 23 023 Inactive metoprolol succinate ER 200 mg tablet,extended release 24 hr RxNorm: 694392 Take 1 Tablet(s) Oral QD 08/12/19 23 025 Inactive loperamide 2 mg capsule RxNorm: 159654 Take 1 Capsule(s) Oral QID as needed 09/06/19 25 025 Inactive hydralazine 50 mg tablet RxNorm: 338912 Take 1 Tablet(s) Oral QID 08/12/19 23 025 Inactive Soft Touch Lancets RxNorm: miscellaneous 03/04/20 24 025 Inactive Novolog Flexpen U-100 Insulin aspart 100 unit/mL (3 mL) subcutaneous RxNorm: 6167677 Insert 30 Unit(s) Subcutaneous TID with meals [...] data Assessments Condition Codes Effective Dates Notes Amputated toe of right foot ICD-10: S98. 131A ICD-9: 895.011/ note foundPreventative health careSNOMED: 859607541 ICD-10: Z00.00 ICD-9: V70.011/ note foundDiabetic neuropathy associated with type 2 diabetes mellitusICD-10: E11.40 ICD-9: 250.6011/ note foundACP (advance care planning)SNOMED: 925346009 ICD-10: Z71.89 ICD-9: V65.4911/ note foundCKD stage 3a, GFR 45-59 ml/minICD-10: N18.31 ICD-9: 585.311/03/2025No note found Reason For Visit No Reason For Visit data Results Observation Observation Code Item Item Code Result Date S ervice Location [facility] [id number] n/a 04/09/2025 Unknown PHQ2 PHQ2 [id number] 1 04/09/2025 Unknown Review of Systems No Review of Systems [...] Cristiano e ([id number]) Medicare Annual Well ness Visit (AWV), Subsequent Diagnosis: ACP (advance care planning)[SNOMED: 488282196] Diagnosis: Preventative health care[SNOMED: 282548874] Diagnosis: CKD stage 3a, GFR 45-59 ml/min[ICD10: N18.31] Diagnosis: Diabetic neuropathy associated with type 2 diabetes mellitus[ICD10: E11.40] Diagnosis: Amputated toe of right foot[ICD10: S98.131A][facility] [address] [place] [address]WLD-8: F476863/03/2025 ([id number]) Home Visit - Est Pt, low Diagnosis: ACP (advance care planning)[SNOMED: 336798456] Diagnosis: Preventative health care[SNOMED: 990193135] Diagnosis: CKD stage 3a, GFR 45-59 ml/min[ICD10: N18.31] Diagnosis: Diabetic neuropathy associated with type 2 diabetes mellitus[ICD10: E11.40] Diagnosis: Amputated toe of right foot[ICD10: S98.131A]Andressa [place] [place] on [address] [place] [address]VAP-6: 3320468/03/2025 Plan of Care Planned Activity Notes Codes Status Date Patient Education: Patient Medication Summary Uispxumnp17/11/2025Patient Education: Addiction and Substance AbuseCompleted 03/27/2025Patient Education: OyxlqlmhoRadnqtutl97/11/2025Patient Education: Exercise and XyotnqqUssgwwxcd95/11/2025ppointment: Harrison Munson WPtel: [address] [place], [place] [id number] USF/U001/09/2025Referral: [facility] Radiology/Imaging WPtel: [address] [place], [place] [id number] USReferralNo Records Fzzcootu33/06/2025ppointment: Harrison Munson WPtel: [address] USF/U008/08/2024ppointment: Harrison Munson WPtel: [address] USF/U007/11/2024Referral: [facility]/Endocrinology WPtel: [address] [facility] 3 [id number] USReferralNo Records Mhastzyl14/24/2025ppointment: Harrison Munson WPtel: [address] [facility]02/08/2024ppointment: Harrison Munson WPtel: 270 [facility] 300 [id number] USF/U001/11/2024ppointment: Sandra Clark WPtel: 270 [facility] 300 [id number] [facility] Psych Follow Up12/09/2022ppointment: Yola Shirleyy WPtel: [address] [facility] 300 [id number] USTCM10/26/2022Referral: [facility] WPtel: [address], [address] [id number] USReferralRecords Kdfawuvo49/08/2023ppointment: Rosalina Shirley WPtel: [address] [facility] 300 [id number] USF/U008/11/2022ppointment: Rosalina Shirley WPtel: 270 [facility] 300 [id number] USF/U007/14/2022ppointment: Rosalina Shirley WPtel: 270 [facility] 300 [id number] USF/U002/10/2022eferral: [facility] WPtel: [address] LoscmCW[address] YSJqknlcbjGaauagkki87/12/2022Referral: General CardiologyReferralCompleted 1Referral: General PsychologistReferralClosedReferral: General PsychiatristReferralPatient/Family Scheduling AppointmentReferral: [facility] WPtel: [facility] [address] USReferralFacility Scheduling AppointmentReferral: General Physical Medicine [...] extremity edema Active 01/11/2024 (E11.22-250.40) Stage 2 distance education director 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
[2025-04-29 08:03] VITALS: BP 178/56; PULSE 90; RESP 18; TEMP 36.6; O2SAT 94
--- NOTE | 2025-04-29 08:16 | ED.FALL ---
HPI - Fall General Time Seen by Provider: 08:17 Date Seen: 04/29/25 Chief Complaint: Fall/Minor Trauma Stated Complaint: pressure sores Time Seen by Provider: 04/29/25 08:16 Source: patient, EMS, RN notes reviewed and old records reviewed Mode of arrival: EMS Limitations: no limitations History of Present Illness HPI Narrative: Leonid is a 64-year-old gentleman with history of morbid obesity, epilepsy, diabetes, chronic kidney disease , known coronary artery disease currently on Eliquis for DVT who comes to the emergency room via EMS after he fell earlier today. He tells me that he does have some rib pain but is breathing okay but that his buttock hurts. He states that his buttocks were actually hurting before he fell today. He describes the fall as merely backing out of his closet in his right leg giving out. It has happened to him in the past. He actually tells me that he did not come for the fall but rather because he has buttock pain. It has been going on for a few days. He has not had fever or chills or any diarrhea. Leonid currently lives at the [facility] in [place]. States that he can shower himself but that if he needs help somebody will assist him. Denies hitting his head today or difficulty breathing. Currently on Eliquis for recurrent DVT. Related Data Home Medications ?Medication ?Instructions ?Recorded ?Confirmed apixaban 5 mg tablet (Eliquis) 5 mg PO BID 03/07/22 04/29/25 aripiprazole 15 mg tablet 7.5 mg PO DAILY 03/07/22 04/29/25 aspirin 81 mg tablet,delayed 81 mg PO DAILY 03/07/22 04/29/25 release carbamazepine 200 mg tablet 200 mg PO BID 03/07/22 04/29/25 ezetimibe 10 mg tablet 10 mg PO DAILY 03/07/22 04/29/25 pantoprazole 40 mg tablet,delayed 40 mg PO DAILY 03/07/22 04/29/25 release pregabalin 100 mg capsule 100 mg PO QAM 03/07/22 04/29/25 pregabalin 150 mg capsule 150 mg PO HS 03/07/22 04/29/25 venlafaxine 75 mg capsule,extended 225 mg PO DAILY 03/07/22 04/29/25 release 24 hr acetaminophen 500 mg tablet 500 mg PO TID PRN 06/13/22 01/31/25 icosapent ethyl 1 gram capsule 2 g PO BID 06/13/22 04/29/25 (Vascepa) loperamide 2 mg capsule 2 mg PO Q6H PRN loose stool 06/13/22 04/29/25 nystatin 100,000 unit/gram topical 1 applic topical BID PRN 06/13/22 04/29/25 powder sennosides 8.6 mg tablet (senna) 8.6 mg PO DAILY 06/13/22 01/31/25 isosorbide mononitrate 60 mg 60 mg PO DAILY 12/27/23 04/29/25 tablet,extended release 24 hr semaglutide 1 mg/dose (4 mg/3 mL) 2 mg subcut .weekly 12/27/23 01/31/25 subcutaneous pen injector (Ozempic) potassium chloride 20 mEq 40 meq PO TID 02/20/24 04/29/25 tablet,extended release(part/cryst) rosuvastatin 40 mg tablet 40 mg PO HS 02/20/24 04/29/25 cholecalciferol (vitamin D3) 1,250 1,250 mcg PO WE 12/12/24 01/31/25 mcg (50,000 unit) capsule carvedilol 25 mg tablet 50 mg PO BID 01/31/25 04/29/25 insulin regular hum U-500 conc 500 See Rx Instructions subcut .COMPLEX 01/31/25 04/29/25 unit/mL(3 mL) subcut pen (Humulin R U-500 (Conc) Insulin Kwikpen) pioglitazone 30 mg tablet 30 mg PO DAILY 01/31/25 04/29/25 amlodipine 5 mg tablet 5 mg PO DAILY 04/29/25 04/29/25 semaglutide 2 mg/dose (8 mg/3 mL) mg subcut 04/29/25 subcutaneous pen injector (Ozempic) Previous Rx's ?Medication ?Instructions ?Recorded hydrocortisone 2.5 % topical cream 1 applic topical BID PRN #30 grams 09/14/22 empagliflozin 10 mg tablet 10 mg PO DAILY #30 tabs 12/15/24 (Jardiance) hydralazine 50 mg tablet 50 mg PO TID #90 tabs 12/15/24 spironolactone 25 mg tablet 50 mg (2 x 25 mg) PO DAILY #60 tabs 12/15/24 torsemide 20 mg tablet 60 mg (3 x 20 mg) PO DAILY #90 tabs 12/15/24 albuterol sulfate 90 mcg/actuation 1 inh inhalation Q4H PRN 01/31/25 aerosol inhaler bronchospasm #8.5 grams ipratropium 0.5 mg-albuterol 3 mg 3 ml inhalation Q4-6H PRN #180 mL 01/31/25 (2.5 mg base)/3 mL nebulization soln nebulizer and compressor #1 ea 01/31/25 (All-In-One Nebulizer System) amoxicillin 875 mg-potassium 1 tab PO BID #14 tabs 04/29/25 clavulanate 125 mg tablet Allergies Allergy/AdvReac Type Severity Reaction Status Date / Time lisinopril Allergy Mild Cough Verified 04/29/25 08:08 metformin AdvReac Verified 04/29/25 08:08 Review of Systems Status of ROS: Reports: 10 or more systems reviewed and unremarkable except as noted in History and below Const: Denies: fever, chills or fatigue Eyes: Denies: change in vision ENMT: Denies: throat pain, neck pain or nasal congestion Cardio: Reports: swelling of feet/ankles ( Chronic) and shortness of breath with exertion ( chronic); Denies: chest pain Resp: Reports: shortness of breath ( chronic); Denies: cough GI: Reports: blood in stool; Denies: abdominal pain, nausea, vomiting or diarrhea : Denies: painful urination Musculo: Denies: neck pain Integ/Breast: Reports: skin tenderness Neuro: Reports: weakness in extremities ( chronic) Endo: Denies: fatigue PFSH PFS Medical History Epilepsy ?G40.909 - Epilepsy, unspecified, not intractable, without status epilepticus (ICD-10) Candidal dermatitis ?B37.2 - Candidiasis of skin and nail (ICD-10) Polypharmacy ?Z79.899 - Other assisted (current) drug therapy (ICD-10) Diabetes mellitus ?E11.9 - Type 2 diabetes mellitus without complications (ICD-10) Chronic hypoxic respiratory failure ?J96.11 - Chronic respiratory failure with hypoxia (ICD-10) Anemia in chronic kidney disease (CKD) ?N18.9 - Chronic kidney disease, unspecified (ICD-10) ?D63.1 - Anemia in chronic kidney disease (ICD-10) Chronic kidney disease (CKD), stage IV (severe) ?N18.4 - Chronic kidney disease, stage 4 (severe) (ICD-10) DISH (diffuse idiopathic skeletal hyperostosis) ?M48.10 - Ankylosing hyperostosis [[place]], site unspecified (ICD-10) Edema ?R60.9 - Edema, unspecified (ICD-10) Neuropathy ?G62.9 - Polyneuropathy, unspecified (ICD-10) Learning disability ?F81.9 - Developmental disorder of scholastic skills, unspecified (ICD-10) Insomnia ?G47.00 - Insomnia, unspecified (ICD-10) Metabolic syndrome ?E88.810 - Metabolic syndrome (ICD-10) Sensorineural hearing loss (SNHL) of both ears ?H90.3 - Sensorineural hearing loss, bilateral (ICD-10) Tinnitus ?H93.19 - Tinnitus, unspecified ear (ICD-10) Hypercholesterolemia ?E78.00 - Pure hypercholesterolemia, unspecified (ICD-10) Insulin dependent diabetes mellitus Recurrent deep vein thrombosis (DVT) ?I82.409 - Acute embolism and thrombosis of unspecified deep veins of unspecified lower extremity (ICD-10) Hypertension ?I10 - Essential (primary) hypertension (ICD-10) Coronary artery disease ?I25.10 - Atherosclerotic heart disease of [place] coronary artery without angina pectoris (ICD-10) Hypertriglyceridemia ?E78.1 - Pure hyperglyceridemia (ICD-10) TASHI on CPAP ?G47.33 - Obstructive sleep apnea (adult) (pediatric) (ICD-10) ?Z99.89 - Dependence on other enabling machines and devices (ICD-10) Tachypnea ?R06.82 - Tachypnea, not elsewhere classified (ICD-10) Fever ?R50.9 - Fever, unspecified (ICD-10) CKD (chronic kidney disease) ?N18.9 - Chronic kidney disease, unspecified (ICD-10) Gout ?M10.9 - Gout, unspecified (ICD-10) Major depressive disorder ?F32.9 - Major depressive disorder, single episode, unspecified (ICD-10) Type 2 diabetes mellitus ?E11.9 - Type 2 diabetes mellitus without complications (ICD-10) Surgical History History of cholecystectomy ?Z90.49 - Acquired absence of other specified parts of digestive tract (ICD-10) Social History Narrative: Lives in a nursing home in [place], [place]. Sisters Brittany Suggs ([phone]) and Blanka Mcduffie ([phone]) listed as contacts and medical decision makers. Paperwork from nursing home indicates Full Code status. What is your current living situation?: I presently have a place to live Problems where you live: no known problems Problems where you live details: none In the past 12 months, utilities in danger of being shut off: no In past 12 months, lack of transportation kept you from medical appts, meetings, work, or getting things needed for daily living: yes In the past 12 mos, have been you worried that your food would run out before you had money to buy more?: never true In the past 12 mos, the food you bought just didn't last and you didn't have money to buy more?: never true Highest level of school completed/degree received: high school graduate Smoking Status: Never smoker Do you use any of these nicotine containing products: None Second hand tobacco smoke exposure: No How often do you have a drink containing alcohol: never How often do you have six or more drinks on one occasion: Never AUDIT-C Alcohol total score: 0 Non-prescribed substance use: denies use Caffeine: No How often does anyone, including family, friends and others, physically hurt you: never How often does anyone, including family, friends and others, insult or talk down to you: never How often does anyone, including family, friends and others, threaten you with harm: never How often does anyone, including family, friends and others, scream or curse at you: never service: No Health Related Social Needs: transportation insecurity (Z59.82) Exam Narrative: Exam Narrative: Alert and oriented. No acute distress. Mentation at baseline. Head is atraumatic normocephalic. Heart is with regular rate and rhythm and lungs are clear. Abdomen is obese soft no tenderness. He has an area of scabbing and dried blood extending from his lower abdomen there is no surrounding erythema. No masses are palpated. Lifting the pannus a we see a very large area of erythema and fungal odor. I do not note any open areas here however. Examination of the back shows no pain with palpation down thoracic or lumbar spine. Has well-healed surgical wounds. His anal area initially a noted no obvious bleeding. We do use a iman wipe and there is blood coming from this area. With assistance due have nursing staff place patient on the left side. And I do note an area of clot which I removed and a copious amount of bloody purulent fluid drains. It is not particularly foul smelling. Lower extremities with skin findings consistent with venous stasis. Lower abdomen is that of skin buildup as well. Const: Vital Signs, click to edit/add: Vital Signs - 24 hr 04/29/25 08:03 04/29/25 11:00 04/29/25 13:00 Temperature 98 F Pulse Rate [Right Pulse Oximeter] 90 87 87 Respiratory Rate 18 20 20 Blood Pressure [Ri ght Upper Arm] 178/56 H 146/79 H 157/68 H Pulse Oximetry 94 94 94 Oxygen Delivery Me thod Room Air Room Air Room Air Documenting provider has reviewed patient's vital signs: yes Course Course ED Course: Differential diagnosis includes but is not limited to rib fracture, pelvic fracture, back injury from the fall although Leonid states that it was not that bad and that is not why he is here. We will obtain x-rays of the left ribs pelvis and lumbar spine. I a.m. worried about a perianal abscess. Will be obtaining labs to include CBC, comp panel, CRP, urinalysis. If creatinine reassuring will obtain CT of the abdomen and pelvis with contrast. Consultations Consultation #1: I did speak with our surgeon Dr. Mathis who was able to view these films. She does suggest trying to put a small amount of packing in the wound if possible. Otherwise suggest iman bottle or bathing 3 times daily as I do not think Leonid will be able to participate in a Sitz bath. I do not think he would be able to get in out of a tub. She also suggest follow-up on WednesdayMay 02 at her clinic at 1230. Also requests Augmentin 875 p.o. b.i.d. his 1st dose was given this evening. Vital Signs Vital signs: Initial Vital Signs Temperature 98 F 04/29/25 08:03 Temperature Source Temporal Artery Scan 04/29/25 08:03 Pulse Rate 90 04/29/25 08:03 Pulse Rhythm Regular 04/29/25 08:03 Pulse Strength 3+ Normal 04/29/25 08:03 Respiratory Rate 18 04/29/25 08:03 Blood Pressure 178/56 H 04/29/25 08:03 Blood Pressure Mean 96 04/29/25 08:03 Blood Pressure Position Sitting 04/29/25 08:03 Pulse Oximetry 94 04/29/25 08:03 Oxygen Delivery Method Room Air 04/29/25 08:03 Vital Signs Temperature 98 F 04/29/25 08:03 Pulse Rate 90 04/29/25 08:03 Respiratory Rate 18 04/29/25 08:03 Blood Pressure 178/56 H 04/29/25 08:03 Pulse Oximetry 94 04/29/25 08:03 Oxygen Delivery Method Room Air 04/29/25 08:03 Temperature 98 F 04/29/25 08:03 Pulse Rate 87 04/29/25 13:00 Respiratory Rate 20 04/29/25 13:00 Blood Pressure 157/68 H 04/29/25 13:00 Pulse Oximetry 94 04/29/25 13:00 Oxygen Delivery Method Room Air 04/29/25 13:00 Medications Administered Medications: Generic Name Dose Route Start Last Admin Trade Name Freq PRN Reason Stop Dose Admin Nystatin 1 applic 04/29/25 09:00 04/29/25 09:49 Nystatin Cream 30 Gm TOPICAL 1 applic TID SOILA Administration Discontinued Medications Generic Name Dose Route Start Last Admin Trade Name Freq PRN Reason Stop Dose Admin Amoxicillin/Clavulanate Potassium 875 mg 04/29/25 14:29 04/29/25 14:34 Amoxicillin/Clavulanate 875 Mg/125 Mg Tablet PO 04/29/25 14:30 875 mg ONCE ONE Administration MDM - Fall MDM Narrative Medical decision making narrative: 1. Fall -No significant injury. Patient complained of some mild rib pain, buttock pain. Chest x-ray, lumbar spine and pelvis images all negative. Patient has chronic weakness and deconditioning. No prodromal symptoms. 2. Right perianal abscess- patient noted to have blood on his underwear. Particularly challenging finding the source but I did finally with nursing assistance and retraction of the buttocks find a clot on the right internal buttocks/ distal perianal area and when I removed it a large amount of purulent bloody fluid released. There is a 8 mm opening in this area. I was able to pack it with quarter-inch plain Nu Gauze. CT did show a perianal abscess measuring 4.8 x 1.7 x 5.8. Our surgeon did consult. Feels that is may be more in the soft tissue buttock rather than perianal tunneling. With this patient was given initial dose of Augmentin 875. Further antibiotic 875 p.o. b.i.d. x7 days sent to the pharmacy. In addition will need to clean this area daily. One of these cleaning should be by showering. Two other times throughout the day this area will need to be cleansed and we were able to obtain a iman bottle from [facility] to help staff in this endeavor. The wick may fall out. There may be some additional bleeding and that would be normal as he is on Eliquis. No significant bleeding here in the ER. White count was normal although CRP was elevated. No evidence of sepsis At this time. 3. Disposition -home to the lodges. Our nursing staff did check with their nursing staff to ensure that they could manage this patient. Peter should return or seek medical attention for fever, worsening symptoms and as needed. Medical Records Attestation: I reviewed the patient's medical records. Lab Data Attestation: I reviewed the patient's lab results. Labs: Lab Results 04/29/25 04/29/25 Range/Units 08:55 11:42 WBC 8.76 (4.50-11.00) K/uL RBC 4.53 (4.30-5.90) m/uL Hgb 12.3 L (13.5-17.5) gm/dL Hct 38.1 (37.0-53.0) % MCV 84 (80-100) fL MCH 27 (26-34) pg MCHC 32 (32-36) gm/dL RDW Coeff of Kaylen 15.7 H (11.5-15.5) % Plt Count 155 (140-440) K/uL Neut % (Auto) 73.2 H (42.0-72.0) % Lymph % (Auto) 15.9 L (20-44) % Webb % (Auto) 7.5 (0.0-11.0) % Eos % (Auto) 3.0 (0.0-7.0) % Baso % (Auto) 0.2 (0.0-3.0) % Neut # (Auto) 6.40 (1.7-7.0) K/uL Lymph # (Auto) 1.40 (0.90-2.90) K/uL Webb # (Auto) 0.70 (0.00-0.90) K/UL Eos # (Auto) 0.26 (0.00-0.50) K/uL Baso # (Auto) 0.02 (0.00-0.30) K/uL Abs Immat Gran (auto) 0.02 (0.00-0.30) K/uL Imm/Tot Granulo (auto) 0.2 % Sodium 137 (135-149) mmol/L Potassium 4.6 (3.6-5.1) mmol/L Chloride 101 (96-114) mmol/L Carbon Dioxide 28 (20-32) mmol/L Anion Gap 8 (7-15) mEq/L BUN 29 (7-30) mg/dL Creatinine 1.4 (0.5-1.5) mg/dL Estimated GFR 56 ml/min Glucose 173 H (60-115) mg/dL Calcium 8.8 (8.4-10.6) mg/dL Total Bilirubin 0.8 (0.1-1.5) mg/dL AST 26 (12-35) U/L ALT 19 (4-50) U/L Alkaline Phosphatase 91 (40-150) U/L C-Reactive Protein 16.4 H (0.5-1.0) mg/dL Total Protein 7.5 (6.0-8.3) g/dL Albumin 4.2 (3.3-5.0) g/dL Urine Color Yellow (Yellow) Urine Appearance Clear (Clear) Urine pH 6.0 (5.0-8.5) Ur Specific Ama 1.015 (1.000-1.030) Urine Protein Trace A (Negative) Urine Glucose (UA) 3+ A (Negative) Urine Ketones 1+ A (Negative) Urine Blood Negative (Negative) Urine Nitrite Negative (Negative) Urine Bilirubin Negative (Negative) Urine Urobilinogen 1.0 (0.2-1.0) Ur Leukocyte Esterase Negative (Negative) Urine RBC 0-2 (0-2) Urine WBC 0-2 (0-5) Ur Squamous Epith Cells Few (None-Few) Urine Bacteria Few A (None) Imaging Data rib x-ray: Attestation: I have reviewed the pertinent imaging results. My impression: No obvious fractures. Radiologist's impression: FINDINGS: Medical Devices: None. Lung Volumes: Adequate inspiration. No significant atelectasis. Lungs: Clear lungs. Pleura and Pleural spaces: No significant pleural effusion. No pneumothorax. No extrapleural hematoma. Mediastinum: Normal cardiomediastinal silhouette. Bony Thorax and Soft Tissues: No left rib fracture is identified. No significant incidental findings. IMPRESSION: No left rib fracture is identified. lumbar spine x-ray: Attestation: I have reviewed the pertinent imaging results. My impression: I do not note any acute fractures Radiologist's impression: Bones: Alignment is normal. No fractures or significant bone lesions. No sign of acute injury. Joints: Mild multilevel degenerative disc spondylosis. Moderate facet joint arthrosis in the lower lumbar spine. Soft tissues: Unremarkable. pelvis x-ray: Attestation: I have reviewed the pertinent imaging results. My impression: no acute fractures noted. Radiologist's impression: Bones: Alignment is normal. No fractures or bone lesions. Joint spaces: Unremarkable. Soft tissues: Unremarkable. Impression: No sign of acute injury. CT scan - abdomen: Attestation: I have reviewed the pertinent imaging results. Radiologist's impression: Lower chest: Few scattered small lung nodules in the bases are approximately stable, for example 2 mm in the right lower lobe on 3:21. Liver: Hepatic steatosis. No suspicious focal abnormality. Gallbladder and bile ducts: Cholecystectomy. No biliary dilation. Pancreas: Unchanged, mildly atrophic. Spleen: Enlarged. Adrenal glands: Normal. Kidneys: Symmetric enhancement. No hydronephrosis. Large right upper pole cyst unchanged. GI tract: Portions of the bowel are outside the field of view. The imaged portions of small bowel and colon are unremarkable. Vasculature: Abdominal aorta is normal in caliber. Lymph nodes: No enlarged lymph nodes by size criteria. Peritoneum/Abdominal Wall: Unremarkable. No free air or significant free fluid. Pelvis: Urinary bladder is distended and thin-walled. Bones: No aggressive osseous lesions. Moderate to severe spinal degenerative changes. Other: Peripherally enhancing tubular fluid collection in the right gluteal cleft measuring approximately 4.8 x 1.7 x 5.8 cm (AP by TR by CC), suspicious for perianal fistula/abscess. Fat containing umbilical hernia. IMPRESSION: Right perianal fistula/abscess. Splenomegaly. Other incidental findings as detailed above. Discharge Plan Discharge Clinical Impression: Perianal abscess Patient Disposition: Home, Self-Care Condition: Improved Additional Instructions: Continue augmentin. 1st dose given tonight in the ED. further medications sent to pharmacy. will need to clean this area 3 times daily. One of the times will need to be a shower. The other 2 times can be with a water bottle. The opening to the abscess is on your right internal buttock. There is gauze or what we call a wick in the wound. Most likely this will naturally fall out. Do not be alarmed if it does. It will also be normal if there is a small amount of bleeding. [facility], surgery, at 1230 on WednesdayMay 02 for recheck. We want to make sure that this is healing well. Call [phone] if you cannot make this appointment or need to change it. Return to the emergency room for fever, worsening symptoms and as needed. Prescriptions: New amoxicillin-pot clavulanate 875-125 mg tablet 1 tab PO BID Qty: 14 0RF No Action aripiprazole 15 mg tablet 7.5 mg PO DAILY Eliquis 5 mg tablet 5 mg PO BID aspirin 81 mg tablet,delayed release (DR/EC) 81 mg PO DAILY venlafaxine 75 mg capsule,extended release 24hr 225 mg PO DAILY carbamazepine 200 mg tablet 200 mg PO BID pantoprazole 40 mg tablet,delayed release (DR/EC) 40 mg PO DAILY ezetimibe 10 mg tablet 10 mg PO DAILY pregabalin 100 mg capsule 100 mg PO QAM pregabalin 150 mg capsule 150 mg PO HS sennosides [senna] 8.6 mg tablet 8.6 mg PO DAILY loperamide 2 mg capsule 2 mg PO Q6H PRN (Reason: loose stool) acetaminophen 500 mg tablet 500 mg PO TID PRN nystatin 100,000 unit/gram powder 1 applic TOPICAL BID PRN icosapent ethyl [Vascepa] 1 gram capsule 2 g PO BID carvedilol 25 mg tablet 50 mg PO BID Humulin R U-500 (Conc) Kwikpen 500 unit/mL (3 mL) insulin pen See Rx Instructions subcut .COMPLEX Rx Instructions: 140 UNIT AM &NOON AND 160 UN ITS WITH SUPPER subcutaneously TID; pioglitazone 30 mg tablet 30 mg PO DAILY albuterol sulfate 90 mcg/actuation HFA aerosol inhaler 1 inh INHALATION Q4H PRN (Reason: bronchospasm) Qty: 8.5 0RF ipratropium-albuterol 0.5 mg-3 mg(2.5 mg base)/3 mL solution for nebulization 3 ml inhalation Q4-6H PRNQty: 180 0RF (DME) nebulizer and compressor [All-In-One Nebulizer System] Device See Rx Instructions .Route Qty: 1 0RF Rx Instructions: As directed hydrocortisone 2.5 % cream 1 applic topical BID PRNQty: 30 1RF isosorbide mononitrate 60 mg tablet extended release 24 hr 60 mg PO DAILY Ozempic 1 mg/dose (4 mg/3 mL) pen injector 2 mg subcut .weekly potassium chloride 20 mEq tablet,ER particles/crystals 40 meq PO TID rosuvastatin 40 mg tablet 40 mg PO HS cholecalciferol (vitamin D3) 1,250 mcg (50,000 unit) capsule 1,250 mcg PO WE spironolactone 25 mg Tablet 50 mg PO DAILY Qty: 60 0RF torsemide 20 mg tablet 60 mg PO DAILY Qty: 90 0RF hydralazine 50 mg tablet 50 mg PO TID Qty: 90 0RF Patient Comments: 08,12,16,20 Jardiance 10 mg Tablet 10 mg PO DAILY Qty: 30 0RF amlodipine 5 mg tablet 5 mg PO DAILY Ozempic 2 mg/dose (8 mg/3 mL) pen injector SUBCUT Patient Comments: [NO ORIGINAL SIG] Follow Up/Referrals: Provider,Not a Local [Primary Care Provider, Family Practice] Stand Alone Forms: MyHealth Info Instructions
--- NOTE | 2025-04-29 08:41 | CRLHL7_ITS ---
For Patients: As a result of the Cures Act, medical imaging exams and procedure reports are released immediately into your electronic medical record. You may view this report before your referring provider. If you have questions, please contact your health care provider. Indication: Trauma, fall. Technique: Pelvis 1 views. Comparison: None. Findings: Bones: Alignment is normal. No fractures or bone lesions. Joint spaces: Unremarkable. Soft tissues: Unremarkable. Impression: No sign of acute injury. Dictated by Jeromy Monzon MD @ 04/29/2025 10:22:18 AM (Electronically Signed)
--- NOTE | 2025-04-29 08:41 | CRLHL7_ITS ---
For Patients: As a result of the Cures Act, medical imaging exams and procedure reports are released immediately into your electronic medical record. You may view this report before your referring provider. If you have questions, please contact your health care provider. INDICATION: Trauma, fall. TECHNIQUE: Lumbar spine 3 view. COMPARISON: December 27, 2023. FINDINGS: Bones: Alignment is normal. No fractures or significant bone lesions. No sign of acute injury. Joints: Mild multilevel degenerative disc spondylosis. Moderate facet joint arthrosis in the lower lumbar spine. Soft tissues: Unremarkable. Dictated by Jeromy Monzon MD @ 04/29/2025 10:23:12 AM (Electronically Signed)
--- NOTE | 2025-04-29 08:43 | CRLHL7_ITS ---
For Patients: As a result of the Cures Act, medical imaging exams and procedure reports are released immediately into your electronic medical record. You may view this report before your referring provider. If you have questions, please contact your health care provider. INDICATION: Fall. COMPARISON: Prior studies, the most recent prior chest radiograph dated 12/12/2024. TECHNIQUE: AP supine chest and two views of the left ribs (3 images). FINDINGS: Medical Devices: None. Lung Volumes: Adequate inspiration. No significant atelectasis. Lungs: Clear lungs. Pleura and Pleural spaces: No significant pleural effusion. No pneumothorax. No extrapleural hematoma. Mediastinum: Normal cardiomediastinal silhouette. Bony Thorax and Soft Tissues: No left rib fracture is identified. No significant incidental findings. IMPRESSION: No left rib fracture is identified. Dictated by Bruno Saucedo MD @ 04/29/2025 11:00:00 AM (Electronically Signed)
--- OUTSIDE RECORDS SUMMARY | 2025-04-29 08:44 | XMS_ITS | CCD ---
Author Organization Unknown Care Team Providers Care Chucking Machine Set Up Operator Name Role Phone Harrison Durham Primary Care Provider Leona vailable Unavailable Chronic Care Management Unavaila ble Summary Purpose DataExchange Insurance Providers Payer name Policy type / Coverage type Covered libertarian ID Effective Begin Date Effective End Date [place] [id number] Unknown Unknown [place] [id number] Unknown Unknown Family history Sister Brittany Suggs [...] on file 07/11/[address]: 756248849 Never smoker 01/16 Sexually Active? Unknown No [...] Unknown Jail 09/03/[address]: 905753075 No Alcohol Consum ption 09/02/2020 Allergies, Adverse Reactions, Alerts Substance Reaction Codes Entered Date Inactivated Date Status * NO KNOWN FOOD ALLERGIES Soqzpuw8007/13/2023No Inactive DateActiveLISINOPRILRxNorm: 313236502/12/2020No Inactive DateActiveMetformin VAjLprrory16/28/2020No Inactive DateActive* NO KNOWN ENVIRONMENTAL BFWVRDGCFLfwqlku53/27/2024No Inactive DateActive Past Medical History Illness Codes Condition Status Onset Date Resolved Date Coronary artery disease invo lving eagle coronary artery of eagle heart, angina presence unspecified ICD-10: I25.10 ICD-9: 414.81Cftype24/23/2025UnknownDiabetic neuropathy associated with type 2 diabetes mellitusICD-10: E11.40 ICD-9: 250.61Fgaaoi05Lower extremity edemaICD-10: R60.0 ICD-9: 782.4Bwchfc0802/06/2025UnknownOSA (obstructive sleep apnea)ICD-10: G47.33 ICD-9: 327.67Wmxscg35/23/2025UnknownPoor dental hygieneSNOMED CT: 822087611 ICD-10: Z91.89 ICD-9: 525.5Rntprb6902/06/2025UnknownSimple chronic bronchitisSNOMED CT: 56190674 ICD-10: J41.0 ICD-9: 491.8Vvmnfc7902/06/2025UnknownCKD stage 3a, GFR 45-59 ml/[address]: 206184594 ICD-10: N18.31 ICD-9: 585.5Jqekma97Hypertensive heart disease without heart failureICD-10: I11.9 ICD-9: 402.96Yebevo00/26/2025UnknownOnychogryposisICD-10: L60.2 ICD-9: 703.3Gimkaz0501/09/2025UnknownType 2 diabetes mellitus with diabetic chronic kidney diseaseICD-10: E11.22 ICD-9: 250.95Ndraaj91/26/2025UnknownBody mass index [BMI] 60.0-69.9, adultICD- 10: Z68.44 ICD-9: V85.93Sxcnmx77/07/2025UnknownHistory of recent hospitalizationSNOMED CT: 020721389 ICD-10: Z92.89 ICD-9: V13.6Pbulkt7912/21/2024UnknownHypokalemiaICD-10: E87.6 ICD-9: 276.8Fhsjny3112/21/[address]enceSN[address]ED CT: 26877577 ICD-10: N39.46 ICD-9: 788.87Dxyjca05/07/2025UnknownType 2 diabetes mellitus with diabetic polyneuropathy, with long-term current use of insulinICD-10: E11.42 ICD-9: 250.33Oatmpl75/07/2025UnknownCandidal intertrigoICD-10: B37.2 ICD-9: 112.8Ybjcji3912/12/2024UnknownPulmonary noduleICD-10: R91.1 ICD-9: 793.13Zheypy64/29/2025UnknownConstipation by delayed colonic transitICD- 10: K59.01 ICD-9: 564.95Guraam14/24/2025UnknownLoose stoolsICD-10: R19.5 ICD-9: 787.4Rkfzah2311/07/2024UnknownParaparesis of both lower limbsICD-10: G82.20 ICD-9: 344.6Wzyoao6911/07/2024UnknownSeizure disorderICD-10: G40.909 ICD-9: 345.93Dhwkhe62/24/2025UnknownAmputated toe of right footICD-10: S98.131A ICD-9: 895.7Plvqgy01/27/20240517/03/2025Hypercoagulable stateICD-10: D68.59 ICD-9: 289.34Hkkmgc65/27/2025UnknownMajor depression, recurrentICD-10: F33.9 ICD-9: 296.46Axrsox87/27/2025UnknownRecurrent major depressive disorder, in partial remissionICD-10: F33.41 ICD-9: 296.49Rkqdpp83/27/2025UnknownPressure ulcer of left calf, unstageableICD- 10: L89.890 ICD-9: 707.19Kbkauazg55/27/2025UnknownHemorrhoidsICD-10: K64.9 ICD-9: 455.2Isicmk1107/11/2024UnknownPVD (peripheral vascular disease)ICD-10: I73.9 ICD-9: 443.9Pqmbxi6407/11/2024UnknownHyperlipidemia associated with type 2 diabetes mellitusICD-10: E11.69 ICD-9: 250.04Bhseha17/28/2025UnknownAdvance care planningICD-10: Z71.89 ICD-9: V65.99Ytqmhe12/03/2025Low back painICD-10: M54.50 ICD-9: 724.8Vjyvbg3303/07/2024UnknownPhysical deconditioningICD-10: R53.81 ICD-9: 799.7Rcrdue3503/07/2024UnknownAdvanced care planning - to document end of life fawlsqlrbxkRvmbeftClanix85/24/2024UnknownAnnual physical examICD-10: Z00.00 ICD-9: V70.2Xdazpf36History of anemia due to CKDICD-10: N18.9 ICD-9: 585.1Nkegjq2102/08/2024UnknownHx of deep venous thrombosisICD-10: Z86.718 ICD-9: V12.11Juqbyg49/24/2024UnknownLearning disabilityICD-10: F81.9 ICD-9: 315.5Rvgyja1802/08/2024UnknownReducible umbilical herniaICD-10: K42.9 ICD-9: 553.8Vxvzxv1102/08/2024UnknownVitamin D deficiencyICD-10: E55.9 ICD-9: 268.3Pgyuvd1802/08/2024UnknownCallus of heelICD-10: L84 ICD-9: 831Prckwzpx97/28/2024UnknownGout due to renal impairmentICD-10: M10.30 ICD-9: 274.70Pyseczsw34/28/2024UnknownHyperhidrosis of palmsICD-10: L74.512 ICD-9: 705.36Wirvjgam74/28/2024UnknownHyperlipidemia, unspecifiedICD-10: E78.5 ICD-9: 272.5Ggvzelnq30/28/2024UnknownOther termite exterminator helper (current) drug therapyICD- 10: Z79.899 ICD-9: V58.54Ewwtehzv96/28/2024UnknownPain of right heelICD-10: M79.671 ICD-9: 729.0Cjltpryc72/28/2024UnknownStage 2 chronic kidney diseaseICD-10: N18.2 ICD-9: 585.7Euoqpbnf01/28/2024UnknownTinea pedis of both feetICD-10: B35.3 ICD-9: 110.9Qbnjrdmk27/28/2024UnknownCellulitisICD-10: L03.90 ICD-9: 682.6Vcftaula42/23/2024UnknownDandruff in adultICD-10: L21.0 ICD-9: 690.19Lmzycspo42/23/2024UnknownEncounter for other specified special examinationsICD-10: Z01.89 ICD-9: V72.11Yjzovpvm90/23/2024UnknownEncounter for screening for nutritional disorderICD-10: Z13.21 ICD-9: V77.50Zhfcbtxs60/23/2024UnknownImpacted cerumen, left earICD-10: H61.22 ICD-9: 380.4Ggutknnv90/23/2024UnknownShortness of breathICD-10: R06.02 ICD-9: 786.23Yrqhkfgk02/23/2024UnknownSkin tagICD-10: L91.8 ICD-9: 701.0Vhtwzwfm06/23/2024UnknownInappropriate sexual behaviorICD-10: Z72.89 ICD-9: 312.30Gaubnq91/18/2023UnknownPre-op evaluationICD-10: Z01.818 ICD-9: V72.37Ztsohj21/28/2023UnknownSecondary hypertensionICD-10: I15.9 ICD-9: 405.84Tctgqm62/28/2023UnknownDepressionICD-10: F32.9 ICD-9: 085Erqjhgzw86UnknownDVT (deep venous thrombosis)ICD-10: I82.409 ICD-9: 453.75Wavjlpkj85/27/2022UnknownEncounter for immunizationICD-10: Z23 ICD-9: V03.92Plycvhur90/27/2022UnknownLong term (current) use of insulinICD-10: Z79.6Pgkbfuur07/27/2022UnknownMuscular painICD-10: M79.10 ICD-9: 729.3Fcyqzkqw00/27/2022UnknownHypertension associated with diabetesICD- 10: E11.59 ICD-9: 250.99Xrewhunc34/23/2022UnknownContact with and (suspected) exposure to ihyek-67HRE-63: Z20.822 ICD-9: V01.61Paoeekvt90/17/2021UnknownOther infective acute otitis externa of left earICD-10: H60.392 ICD-9: 380.67Kloqwgnj62/17/2021UnknownScrotal skin lesionICD-10: N50.9 ICD-9: 608.6Tyxacxqw13/17/2021UnknownAnemia due to stage 3b chronic kidney diseaseICD-10: N18.32 ICD-9: 285.63Lqtsuwav01/18/2021UnknownChronic kidney disease, stage 3 unspecifiedICD-10: N18.99Xfkyzrsb64/20/2021UnknownContact with and (suspected) exposure to other viral communicable diseasesICD-10: Z20.828 ICD-9: V01.75Yqbuqifg166878WeglajiPzgwnfbkOusqmluCuldmu43/28/2020Unknown Diabetes mellitus Type 3ImwfowsGngjyf73/28/2020UnknownAnemia in chronic kidney diseaseICD-10: D63.3Jcyrtsma37/28/2020UnknownHyperlipidemia, unspecifiedICD-10: E78.9Vdbbsxsl34/28/2020Unknown Problems Condition Codes Effective Dates Condition St atus Coronary artery disease invo lving eagle coronary artery of eagle heart, angina presence unspecified ICD-10: I25.10 ICD-9: 414.0109/5ActiveDiabetic neuropathy associated with type 2 diabetes mellitusICD-10: E11.40 ICD-9: 250.6009/5ActiveLower extremity edemaICD-10: R60.0 ICD-9: 782.309/5ActiveOSA (obstructive sleep apnea)ICD-10: G47.33 ICD-9: 327.2309/5ActivePoor dental hygieneSNOMED CT: 023483761 ICD-10: Z91.89 ICD-9: 525.809/5ActiveSimple chronic bronchitisSNOMED CT: 67731528 ICD-10: J41.0 ICD-9: 491.009/5ActiveCKD stage 3a, GFR 45-59 ml/[address]: 075381784 ICD-10: N18.31 ICD-9: 585.308/5ActiveHypertensive heart disease without heart failureICD- 10: I11.9 ICD-9: 402.9008/5ActiveOnychogryposisICD-10: L60.2 ICD-9: 703.808/5ActiveType 2 diabetes mellitus with diabetic chronic kidney diseaseICD-10: E11.22 ICD-9: 250.4008/5ActiveBody mass index [BMI] 60.0-69.9, adultICD-10: Z68.44 ICD-9: V85.44085ActiveHistory of recent hospitalizationSNOMED CT: 790963452 ICD-10: Z92.89 ICD-9: V13.908/5ActiveHypokalemiaICD-10: E87.6 ICD-9: 276.8085ActiveMixed incontinenceSNOMED CT: 52846989 ICD-10: N39.46 ICD-9: 788.3308/5ActiveType 2 diabetes mellitus [...] planning - to document end of life sboziglmysgQbfrven95ctiveAnnual physical examICD-10: Z00.00 ICD-9: V70.009ctiveHistory of anemia due to CKDICD-10: N18.9 ICD-9: 585.909ctiveHx of deep venous thrombosisICD-10: Z86.718 ICD-9: V12.5109ctiveLearning disabilityICD-10: F81.9 ICD-9: 315.209/ctiveReducible umbilical herniaICD-10: K42.9 ICD-9: 553.109ctiveVitamin D deficiencyICD-10: E55.9 ICD-9: 268.909ctiveCallus of heelICD-10: L84 ICD-9: 28197esolvedGout due to renal impairmentICD-10: M10.30 ICD-9: 274.1005esolvedHyperhidrosis of palmsICD-10: L74.512 ICD-9: 705.2105esolvedHyperlipidemia, unspecifiedICD-10: E78.5 ICD-9: 272.405esolvedOther mcfp (current) drug therapyICD-10: Z79.899 ICD-9: V58.6905esolvedPain of [...] V72.8403/ctiveSecondary hypertensionICD-10: I15.9 ICD-9: 405.9903ctiveDepressionICD-10: F32.9 ICD-9: 22623/2ResolvedDVT (deep venous thrombosis)ICD-10: I82.409 ICD-9: 453.4009/2ResolvedEncounter for [...] to other viral communicable diseasesICD-10: Z20.828 ICD-9: V01.79024623SvbkcnosJyphhyyhNnhvoeu79/28/2020ActiveDiabetes mellitus Type 8Wnggxrz81/28/2020ActiveAnemia in chronic kidney diseaseICD-10: D63.1 02/12/2020ResolvedHyperlipidemia, unspecifiedICD-10: E78.Resolved Medications Medication Codes Instructions Start Date Stop Date Status Fill Instructions pregabalin 100 mg capsule RxNorm: 339453 1 CAPSULE BY MOUTH EVERY MORNING (DX: NEUROPATHY) 02/21/20 25 026 Active PLEASE SEND NEW RX, FACILITY IS REQUESTING MEDICATION. THANKS pregabalin 150 mg capsule RxNorm: 290884 1 CAPSULE BY MOUTH AT BEDTIME (DX: NEUROPATHY) 01/13/20 25 026 Active PLEASE SEND NEW RX, PATIENT IS ALMOST OUT. THANKS! clotrimazole 1 % topical cream RxNorm: 468092 apply one application to affected and surrounding area(s) of skin BID until clinical resolution (abdominal and thigh folds), typically 1-4 weeks.Pause nystatin powder use while using clotrimazole cream. 01/03/20 025 Inactive clotrimazole 1 % topical cream RxNorm: 238331 apply one application to affected and surrounding area(s) of skin BID until clinical resolution (abdominal and thigh folds), typically 1-4 weeks. Pause nystatin powder use while using clotrimazole cream. 01/03/20 25 025 Inactive Culturelle 10 billion cell capsule RxNorm: 166532 Take 1 Capsule(s) Oral QD 11/08/19 25 026 Active Culturelle 10 billion cell capsule RxNorm: 433548 Take 1 Capsule(s) Oral QD 11/08/19 25 025 Inactive hydrocodone 5 mg-acetaminophen 325 mg tablet RxNorm: 896542 Take 1 Tablet(s) Oral Q4H every four hours as needed for pain PRN for severe acute dental pain 10/21/19 25 025 Inactive penicillin V potassium 500 mg tablet RxNorm: 837063 Take 1 Tablet(s) Oral QID Take until dental appointment per ER recommendation 10/21/19 25 025 Inactive hydrocodone 5 mg-acetaminophen 325 mg tablet RxNorm: 359827 Take 1 Tablet(s) Oral Q4H every four hours as needed for pain PRN for severe acute dental pain 10/21/19 25 025 Inactive penicillin V potassium 500 mg tablet RxNorm: 297419 Take 1 Tablet(s) Oral QID Take until dental appointment per ER recommendation 10/21/19 25 025 Inactive potassium chloride ER 20 mEq tablet,extended release RxNorm: 213357 Take 2 Tablet(s) Oral TID (dx: hypokalemia) 09/14/19 25 026 Active potassium chloride ER 20 mEq tablet,extended release RxNorm: 893067 Take 2 Tablet(s) Oral TID (dx: hypokalemia) 09/14/19 25 025 Inactive loperamide 2 mg tablet RxNorm: 155226 Take 2 Tablet(s) Oral UD as directed [...] Date Active senna 8.6 mg tablet RxNorm: 060113 Take 1 Tablet(s) Oral QD as needed and 1 tab BID prn 09/06/19 25 No Stop Date Active cyclobenzaprine 10 mg tablet RxNorm: 121816 Take 1 Tablet(s) Oral QHS every night at bedtime as needed 09/06/19 25 No Stop Date Active loperamide 2 mg tablet RxNorm: 075767 Take 2 Tablet(s) Oral UD as directed as needed 2 tabs after first loose stool then 1 tab after each subsequent stool PRN Do not exceed 4 doses in 24 hours. Do not administer until after 3 loose stools. 09/06/19 026 Active pioglitazone 15 mg tablet RxNorm: 454894 Take 1 Tablet(s) Oral QD 09/06/19 No Stop Date Active loperamide 2 mg tablet RxNorm: 162600 Take 2 Tablet(s) Oral UD as directed as needed 2 tabs after first loose stool then 1 tab after each subsequent stool PRN Do not exceed 4 doses in 24 hours. Do not administer until after 3 loose stools. 09/06/19 025 Inactive pregabalin 100 mg capsule RxNorm: 368441 1 CAPSULE BY MOUTH EVERY MORNING (DX: NEUROPATHY) 08/23/19 Inactive FACILITY IS REQUESTING REFILL. PRIOR RX HAS BEEN EXHAUSTED. THANK YOU. pregabalin 150 mg capsule RxNorm: 269898 1 CAPSULE BY MOUTH AT BEDTIME (DX: NEUROPATHY) 08/21/19 025 Inactive FACILITY IS REQUESTING A REFILL OF THIS MEDICATION, THANK YOU! senna 8.6 mg tablet RxNorm: 508128 Take 1 Tablet(s) Oral QD as needed for constipation on day 2 of no bowel movement 08/09/19 025 Inactive Miralax 17 gram/dose oral powder RxNorm: 920451 Administer 17 Gram(s) Oral QD as needed for constipation on day 3 of no bowel movement 08/09/19 025 Inactive senna 8.6 mg tablet RxNorm: 109489 Take 1 Tablet(s) Oral QD as needed for constipation on day 2 of no bowel movement 08/09/19 25 025 Inactive Miralax 17 gram/dose oral powder RxNorm: 122501 Administer 17 Gram(s) Oral QD as needed for constipation on day 3 of no bowel movement 08/09/19 025 Inactive pregabalin 100 mg capsule RxNorm: 193147 Take 1 Capsule(s) Oral QAM every morning [...] (Concentrated) Insulin 500 unit/mL subcutaneous soln RxNorm: 476765 Inject 100 Unit(s) Subcutaneous AC before meals Three times daily before meals. 07/24/19 25 025 Inactive ammonium lactate 12 % topical cream RxNorm: 095302 Apply 1 Application Topical BID 07/20/19 25 No Stop Date Active ezetimibe 10 mg tablet RxNorm: 545339 Take 1 Tablet(s) Oral QD 07/18/19 25 No Stop Date Active senna 8.6 mg tablet RxNorm: 957833 Take 1 Tablet(s) Oral QD 07/18/19 25 025 Inactive metoprolol succinate ER 200 mg tablet,extended release 24 hr RxNorm: 731252 Take 1 Tablet(s) Oral QD 06/19/19 25 No Stop Date Active pantoprazole 40 mg tablet,delayed release RxNorm: 431279 Take 1 Tablet(s) Oral QAM every morning 06/19/19 25 025 Inactive hydralazine 50 mg tablet RxNorm: 872714 Take 1 Tablet(s) Oral QID 06/19/19 25 No Stop Date Active carbamazepine 200 mg tablet RxNorm: 896789 Take 1 Tablet(s) Oral BID 06/19/19 25 No Stop Date Active amlodipine 10 mg tablet RxNorm: 279491 Take 1 Tablet(s) Oral QD 06/19/19 25 No Stop Date Active Eliquis 5 mg tablet RxNorm: 0436719 Take 1 Tablet(s) Oral BID 06/19/19 25 No Stop Date Active pen needle, diabetic 30 gauge x 3/16 RxNorm: Use 1 6 times per day w/insulin 06/14/19 25 026 Active pen needle, diabetic 30 gauge x 3/16 RxNorm: Use 1 needle 6 times per day w/insulin 06/14/19 25 025 Inactive nystatin 100,000 unit/gram topical powder RxNorm: 606634 Apply 1 Application Topical BID as needed abdominal/breast/ groin folds 05/24/19 026 Active pregabalin 100 mg capsule RxNorm: 716484 Take 1 Capsule(s) Oral QAM every morning 05/22/19 Inactive nystatin 100,000 unit/gram topical powder RxNorm: 542684 Apply 1 Application Topical BID as needed abdominal/breast/ groin folds 04/11/20 Inactive chlorthalidone 25 mg tablet RxNorm: 875886 Take 1 Tablet(s) Oral QAM every morning 04/06/20 No Stop Date Active pregabalin 150 mg capsule RxNorm: 385647 Take 1 Capsule(s) Oral QHS every night at bedtime 03/31/20 Inactive Vascepa 1 gram capsule RxNorm: 8301113 Take 2 Capsule(s) Oral BID 03/30/20 Inactive rosuvastatin 40 mg tablet RxNorm: 919168 1 TAB ORALLY EVERY EVENING (DX:CORONARY ARTERY DISEASE) 03/28/20 No Stop Date Active venlafaxine ER 75 mg capsule,extended release 24 hr RxNorm: 676952 3 CAPS (225MG) ORALLY DAILY (DX: MOOD DISORDER) 03/28/20 No Stop Date Active pregabalin 100 mg capsule RxNorm: 022973 Take 1 Capsule(s) Oral QAM every morning 03/20/20 Inactive cholecalciferol (vitamin D3) 1,250 mcg (50,000 unit) capsule RxNorm: 063180 Take 1 Capsule(s) Oral QW once a [...] Insulin 100 unit/mL (3 mL) subcutaneous RxNorm: 7803215 Inject 40 Unit(s) Subcutaneous BID 03/07/20 025 Inactive Please dispense one month supply. Humulin R U-500 (Concentrated) Insulin 500 unit/mL subcutaneous soln RxNorm: 531825 Inject 100 Unit(s) Subcutaneous AC before meals [...] PRN) to be use with new Accu [place] meter 03/04/20 Inactive ok to substitute with any covered alternative test strip FreeStyle Chema 2 Sensor kit RxNorm: Use UD as directed 03/02/20 Inactive Pen Needle 30 gauge x 5/16 RxNorm: Pen(s) Use 1 needle as directed TID 03/02/20 Inactive nystatin 100,000 unit/gram topical powder RxNorm: 463900 Apply 1 Application Topical BID as needed [...] (Concentrated) Insulin 500 unit/mL subcutaneous soln RxNorm: 556022 Inject 100 Unit(s) Subcutaneous TID 02/17/20 24 024 Inactive Humulin R U-500 (Concentrated) Insulin 500 unit/mL subcutaneous soln RxNorm: 625400 Inject 100 Unit(s) Subcutaneous TID 02/10/20 24 024 Inactive Basaglar KwikPen U-100 Insulin 100 unit/mL (3 mL) subcutaneous RxNorm: 5828884 Inject 30 Unit(s) Subcutaneous BID 02/10/20 24 024 Inactive Please dispense one month supply. pregabalin 100 mg capsule RxNorm: 815781 Take 1 Capsule(s) Oral QAM every morning 02/07/20 24 024 Inactive isosorbide mononitrate ER 60 mg tablet,extended release 24 hr RxNorm: 612392 Take 1 Tablet(s) Oral QD 02/01/20 24 025 Inactive aripiprazole 15 mg tablet RxNorm: 597495 Take 1/2 Tablet(s) Oral QD 02/01/20 24 025 Inactive torsemide 20 mg tablet RxNorm: 520437 1 TAB ORALLY DAILY (DX: EDEMA) 01/27/20 No Stop Date Active potassium chloride ER 20 mEq tablet,extended release(part/cryst) RxNorm: 6474110 2 TABS (40MEQ) ORALLY TWICE DAILY (DX: HYPOKALEMIA) 01/27/20 24 025 Inactive cephalexin 500 mg capsule RxNorm: 613161 Take 1 Capsule(s) Oral QID 12/17/19 24 024 Inactive cephalexin 500 mg capsule RxNorm: 683094 Take 1 Capsule(s) Oral QID 12/17/19 24 024 Inactive acetaminophen 500 mg tablet RxNorm: 926102 (MAX APAP:4GM/24HR) Take 1 Tablet(s) Oral TID [...] %-0.3 % drops in a dropperette RxNorm: 192681 Apply 1-2 Drop(s) Both eyes BID as needed 09/28/19 24 Inactive erythromycin 5 mg/gram (0.5 %) eye ointment RxNorm: 852531 Apply 1 Application Both eyes QHS every night at bedtime Instill ~1 cm ribbon into affected eye 09/28/19 24 024 Inactive Artificial Tears (PF) 0.1 %-0.3 % drops in a dropperette RxNorm: 400511 Apply 1-2 Drop(s) Both eyes BID as needed 09/28/19 24 024 Inactive erythromycin 5 mg/gram (0.5 %) eye ointment RxNorm: 000255 Apply 1 Application Both eyes QHS every night at bedtime Instill ~1 cm ribbon into affected eye 09/28/19 24 024 Inactive acetaminophen 500 mg tablet RxNorm: 501831 (MAX APAP:4GM/24HR) Take 1 Tablet(s) Oral TID as needed for pain 09/24/19 24 Inactive carvedilol 25 mg tablet RxNorm: 628254 Take 1 Tablet(s) Oral QD 09/08/19 24 No Stop Date Active pregabalin 100 mg capsule RxNorm: 289809 Take 1 Capsule(s) Oral QAM every morning 09/07/19 24 024 Inactive bisacodyl 10 mg rectal suppository RxNorm: 029858 Insert 1 Suppository Rectal QD as needed 07/13/19 24 No Stop Date Active ketoconazole 2 % shampoo RxNorm: 740081 Apply 1 Application Topical UD as directed 07/13/19 24 No Stop Date Active Ozempic 1 mg/dose (4 mg/3 mL) subcutaneous pen injector RxNorm: 7131892 Inject 1 Milligram(s) Subcutaneous QW once a week 07/13/19 24 No Stop Date Active Guaifenesin AC 10 mg-100 mg/5 mL oral liquid RxNorm: 281199 Take 10 Milliliter(s) Oral Q4H every four hours as needed 07/13/19 24 No Stop Date Active hydrocortisone 2.5 % topical cream RxNorm: 159709 Apply 1 Application Topical BID as needed 07/13/19 24 No Stop Date Active rosuvastatin 40 mg tablet RxNorm: 053959 Take 1 Tablet(s) Oral QPM every evening 07/13/19 24 024 Inactive ezetimibe 10 mg tablet RxNorm: 368112 Take 1 Tablet(s) Oral QD 07/13/19 24 025 Inactive polyethylene glycol 3350 17 gram/dose oral powder RxNorm: 433316 Take 17 Gram(s) Oral BID as needed mix in 4-8ox water 07/13/19 24 025 Inactive aripiprazole 15 mg tablet RxNorm: 878778 Take 1/2 Tablet(s) Oral QD 07/13/19 24 024 Inactive isosorbide mononitrate ER 60 mg tablet,extended release 24 hr RxNorm: 726849 Take 1 Tablet(s) Oral QD 07/13/19 24 024 Inactive ammonium lactate 12 % topical cream RxNorm: 557624 Apply 1 Application Topical BID 07/13/19 24 025 Inactive rosuvastatin 20 mg sprinkle capsule RxNorm: 4653378 Take 1 Capsule(s) Oral QD 07/13/19 24 025 Inactive Vascepa 1 gram capsule RxNorm: 4626720 Take 2 Capsule(s) Oral BID 07/13/19 24 024 Inactive venlafaxine ER 75 mg capsule,extended release 24 hr RxNorm: 424573 Take 3 Capsule(s) Oral QD 07/13/19 24 024 Inactive Basaglar KwikPen U-100 Insulin 100 unit/mL (3 mL) subcutaneous RxNorm: 3653624 Inject 30U SubQ twice daily 07/07/19 24 024 Inactive Please dispense one month supply. Basaglar KwikPen U-100 Insulin 100 unit/mL (3 mL) subcutaneous RxNorm: 1687048 Inject 30U SubQ twice daily 07/07/19 24 024 Inactive Please dispense one month supply. pregabalin 150 mg capsule RxNorm: 906234 Take 1 Capsule(s) Oral QHS every night at bedtime 07/05/19 24 024 Inactive pregabalin 150 mg capsule RxNorm: 562803 Take 1 Capsule(s) Oral QHS every night at bedtime 07/05/19 24 024 Inactive polyethylene glycol 3350 17 gram/dose oral powder RxNorm: 097938 Take 1 Packet Oral QD as needed (1 packet = 17g) mix with 4-8oz of liquid 06/15/19 24 024 Inactive bisacodyl 10 mg rectal suppository RxNorm: 090728 Insert one suppository per rectum once daily as needed for constipation 06/15/19 24 024 Inactive bisacodyl 10 mg rectal suppository RxNorm: 071886 Insert one suppository per rectum once daily as needed for constipation 06/15/19 24 024 Inactive pregabalin 100 mg capsule RxNorm: 375827 Take 1 Capsule(s) Oral QAM every morning 04/27/20 23 024 Inactive Levemir FlexPen 100 unit/mL (3 mL) solution subcutaneous insulin pen RxNorm: 617425 Inject 30 Unit(s) Subcutaneous BID 04/27/20 23 024 Inactive rosuvastatin 40 mg tablet RxNorm: 084367 Take 1 Tablet(s) Oral QPM every evening 04/16/20 23 024 Inactive D/C rosuvastatin 20mg venlafaxine ER 75 mg capsule,extended release 24 hr RxNorm: 811975 Take 3 Capsule(s) Oral QD 04/14/20 023 Inactive pregabalin 100 mg capsule RxNorm: 887063 Take 1 Capsule(s) Oral QAM every morning [...] strip clotrimazole 1 % topical cream RxNorm: 988446 Take apply topically to abdominal folds twice daily for 14 days 03/12/20 23 024 Inactive Ozempic 1 mg/dose (4 mg/3 mL) subcutaneous pen injector RxNorm: 3963495 Inject 1 Milligram(s) Subcutaneous QW once a week 03/11/20 23 023 Inactive rosuvastatin 20 mg tablet RxNorm: 773585 Take 1 Tablet(s) Oral QD 02/26/20 23 023 Inactive d/c pravastatin 80mg Ozempic 1 mg/dose (4 mg/3 mL) subcutaneous pen injector RxNorm: 0685951 Inject 1 Milligram(s) Subcutaneous QW once a week 02/20/20 23 023 Inactive pregabalin 150 mg capsule RxNorm: 649000 Take 1 Capsule(s) Oral HS at bed time 02/19/20 23 023 Inactive pregabalin 100 mg capsule RxNorm: 587676 Take 1 Capsule(s) Oral QAM every morning 02/18/20 23 023 Inactive venlafaxine ER 75 mg capsule,extended release 24 hr RxNorm: 210762 Take 3 Capsule(s) Oral QD 02/04/20 23 023 Inactive FreeStyle Chema 2 Sensor kit RxNorm: use as directed 02/04/20 23 023 Inactive FreeStyle Chema 2 Sensor kit RxNorm: use as directed 02/04/20 23 024 Inactive fluconazole 150 mg tablet RxNorm: 807912 Take 1 Tablet(s) Oral on day 3 and on day 6 02/03/20 024 Inactive venlafaxine ER 150 mg capsule,extended release 24 hr RxNorm: 788396 Take 1 Capsule(s) Oral QD 02/03/20 023 Inactive chlorthalidone 25 mg tablet RxNorm: 061480 Take 1 Tablet(s) Oral QAM every morning 02/03/20 024 Inactive acetaminophen 500 mg tablet RxNorm: 170266 1 TABLET ORALLY 3 TIMES DAILY (MAX APAP:4GM/24HR) 12/15/19 023 Inactive potassium chloride ER 20 mEq tablet,extended release RxNorm: 710785 Take 1 Tablet(s) Oral BID 12/09/19 024 Inactive d/c 20mEq once daily (sent from hospital) clotrimazole 1 % topical cream RxNorm: 206826 apply 1g topically to top of feet and in between toes BID 12/09/19 23 025 Inactive nystatin 100,000 unit/gram topical powder RxNorm: 527338 APPLY TO AFFECTED AREAS TOPICALLY 2 TIMES DAILY 11/21/19 23 023 Inactive Nystop 100,000 unit/gram topical powder RxNorm: 932046 Apply to abd folds, under breasts and L side of groin Topical BID x 14 days, then BID PRN 11/20/19 023 Inactive dx: yeast dermatitis [place] Ultra Strength 4 %-30 %-10 % topical cream RxNorm: 511290 Apply 1 Gram(s) Topical QID PRN to feet and legs for neuropathic pain 11/11/19 23 024 Inactive hydrocortisone 2.5 % topical cream RxNorm: 391257 Apply 1/2 Gram(s) Topical BID as needed 11/10/19 23 024 Inactive clotrimazole 1 % topical cream RxNorm: 914316 Apply 1/2 Gram(s) Topical BID Apply to affected areas of groin, periarea, and abdominal topically 2 times daily 11/10/19 23 025 Inactive Levemir FlexPen 100 unit/mL (3 mL) solution subcutaneous insulin pen RxNorm: 515255 Inject 30 Unit(s) Subcutaneous BID 10/07/19 23 023 Inactive Humulin R U-500 (Concentrated) Insulin 500 unit/mL subcutaneous soln RxNorm: 250392 Inject 100 Unit(s) Subcutaneous TID 10/07/19 23 024 Inactive Ozempic 0.25 mg or 0.5 mg (2 mg/3 mL) subcutaneous pen injector RxNorm: 0756673 Inject 1/2 Milligram(s) Subcutaneous QW once a week 10/07/19 23 024 Inactive aripiprazole 15 mg tablet RxNorm: 109226 1/2 TAB (7.5MG) ORALLY DAILY (DX:MAJOR DEPRESSIVE DISORDER) 09/23/19 23 023 Inactive Accu-Chek Guide test strips RxNorm: Use 1 Test Strip QID 09/15/19 23 023 Inactive ok to substitute with any covered alternative test strip Lancets,Thin 28 gauge RxNorm: Use 1 as directed QID 09/15/19 23 023 Inactive torsemide 20 mg tablet RxNorm: 718864 Take 1 Tablet(s) Oral BID 09/09/19 024 Inactive d/c once daily dosing carvedilol 25 mg tablet RxNorm: 255101 Take 1 Tablet(s) Oral QD 08/25/19 23 024 Inactive pregabalin 150 mg capsule RxNorm: 204051 1 Capsule(s) Oral HS at bed time 08/18/19 023 Inactive pregabalin 100 mg capsule RxNorm: 324674 1 Capsule(s) Oral QAM every morning 08/18/19 23 023 Inactive carvedilol 25 mg tablet RxNorm: 259196 1 Tablet(s) Oral QD 07/28/19 23 023 Inactive lisinopril 20 mg tablet RxNorm: 555800 Give 1 Tablet(s) Oral QD 07/28/19 23 023 Inactive Lyrica 150 mg capsule RxNorm: 496015 Take 1 Capsule(s) Oral QHS every night at bedtime 07/19/19 23 023 Inactive d/c 100mg dose Diflucan 150 mg tablet RxNorm: 877855 Take 1 Tablet(s) Oral QD repeat on day 3 and 6 07/19/19 23 023 Inactive pregabalin 100 mg capsule RxNorm: 813843 Take 1 Capsule(s) Oral QAM every morning 07/19/19 23 023 Inactive gatifloxacin 0.5 % eye drops RxNorm: 920340 Instill 1 Drop(s) as directed TID Instill 1 drop in to affected eye(s) starting 1 day prior to surgery and continue until gone (do not exceed 4 weeks). 07/13/19 23 023 Inactive carvedilol 25 mg tablet RxNorm: 842704 2 Tablet(s) Oral BID 07/13/19 23 023 Inactive Humulin R Regular U-100 Insulin 100 unit/mL injection solution RxNorm: 755328 85 Unit(s) Injection TID 07/13/19 23 023 Inactive ketorolac 0.5 % eye drops RxNorm: 679393 Instill 1 Drop(s) as directed QID Instill 1 drop into affected eye(s) 4 times daily starting 1 day prior to surgery and continue until gone (do not exceed 4 weeks). 07/13/19 23 023 Inactive Diflucan 150 mg tablet RxNorm: 883293 Take 1 Tablet(s) Oral QD repeat on day 3 and 6 06/30/19 23 023 Inactive Accu-Chek Guide test strips RxNorm: Use 1 Test Strip QID Use 1 test strip to monitor blood glucose 4 times daily and as needed. Dx:E11.42. 06/23/19 23 023 Inactive ok to substitute with any covered alternative test strip dextromethorphan-gu aifenesin 10 mg-100 mg/5 mL oral liquid RxNorm: 713842 Take 10 Milliliter(s) Oral every 4 hours as needed for cough 06/19/19 23 023 Inactive dextromethorphan-gu aifenesin 10 mg-100 mg/5 mL oral liquid RxNorm: 548963 Take 10 Milliliter(s) Oral every 4 hours as needed for cough 06/19/19 023 Inactive Lyrica 150 mg capsule RxNorm: 578468 Take 1 Capsule(s) Oral QHS every night at bedtime 06/18/19 023 Inactive d/c 100mg dose aripiprazole 15 mg tablet RxNorm: 034083 /2 TAB (7.5MG) ORALLY DAILY (DX:MAJOR DEPRESSIVE DISORDER) 06/05/19 023 Inactive pregabalin 100 mg capsule RxNorm: 812195 1 Capsule(s) Oral QAM every morning 06/02/19 023 Inactive Banophen 50 mg capsule RxNorm: 1949721 Take 1 Capsule(s) Oral Q6H every 6 hours as needed 05/19/19 No Stop Date Active Novolog Flexpen U-100 Insulin aspart 100 unit/mL (3 mL) subcutaneous RxNorm: 0581345 Inject 10 Unit(s) Subcutaneous QHS every night at bedtime with nighttime snack 04/08/20 022 Inactive Novolog Flexpen U-100 Insulin aspart 100 unit/mL (3 mL) subcutaneous RxNorm: 1210563 Inject 42 Unit(s) Subcutaneous TID in addition to sliding scale 04/08/20 022 Inactive d/c 36u albuterol sulfate HFA 90 mcg/actuation aerosol inhaler RxNorm: 9207021 Take 2 Puff(s) Inhalation Q4H every four hours as needed as needed for SOB, cough, or wheezing 04/07/20 030 Active Banophen 50 mg capsule RxNorm: 4354856 Take 1 Capsule(s) Oral Q6H every 6 hours as needed 04/06/20 023 Inactive diphenhydramine 50 mg tablet RxNorm: 3669557 Take 1 Tablet(s) Oral Q6H every 6 hours as needed 04/06/20 022 Inactive diphenhydramine 50 mg tablet RxNorm: 4417569 1 Tablet(s) Oral Q6H every 6 hours as needed 04/06/20 022 Inactive Abilify 15 mg tablet RxNorm: 364941 1/2 Tablet(s) Oral QD 03/10/20 22 023 Inactive Shingrix (PF) 50 mcg/0.5 mL intramuscular suspension, kit RxNorm: 9377114 Administer 1/2 Milliliter(s) Intramuscular QD one time shingrix step 2 ( step 1 given 11/04/21) WITH needle - Nursing please administer upon arrival and once administered post a bridge message with date of administration, beef pusher, expiration date, and lot# so we can update [facility] 02/18/20 22 022 Inactive dispense with needle Shingrix (PF) 50 mcg/0.5 mL intramuscular suspension, kit RxNorm: 9376469 Administer 1/2 Milliliter(s) Intramuscular QD one time shingrix step 2 ( step 1 given 11/04/21) WITH needle - Nursing please administer upon arrival and once administered post a bridge message with date of administration, beef pusher, expiration date, and lot# so we can update [facility] [address] 02/18/20 22 022 Inactive dispense with needle Lyrica 100 mg capsule RxNorm: 284032 Take 1 Capsule(s) Oral QAM every morning 01/08/20 22 022 Inactive d/c 50mg dose acetaminophen 500 mg tablet RxNorm: 677700 Take 1 Tablet(s) Oral TID 01/08/20 22 022 Inactive d/c PRN order Lyrica 150 mg capsule RxNorm: 005143 Take 1 Capsule(s) Oral QHS every night at bedtime 01/08/20 22 023 Inactive d/c 100mg dose polyethylene glycol 3350 17 gram/dose oral powder RxNorm: 969662 Take 17=1 capful Gram(s) Oral QD mix with 4-8oz of liquid 01/08/20 22 025 Inactive take this in addition to BID prn order Abilify 5 mg tablet RxNorm: 435790 Take 1 Tablet(s) Oral QD take 1 tab po QD #30 refill 5 dx: MDD 12/12/19 22 022 Inactive Abilify 5 mg tablet RxNorm: 551510 Take 1 Tablet(s) Oral QD take 1 tab po QD #30 refill 5 dx: MDD 12/12/19 22 022 Inactive Novolog Flexpen U-100 Insulin aspart 100 unit/mL (3 mL) subcutaneous RxNorm: 0069255 Inject 42 Unit(s) Subcutaneous TID in addition to sliding scale 12/10/19 22 022 Inactive d/c 36u chlorthalidone 25 mg tablet RxNorm: 008647 Take 1 Tablet(s) Oral QAM every morning 12/10/19 22 023 Inactive pregabalin 50 mg capsule RxNorm: 280095 Take 1 Capsule(s) Oral QAM every morning 11/12/19 22 022 Inactive tetanus-diphtheria toxoids-Td 2 Lf unit-2 Lf unit/0.5 mL IM suspension RxNorm: 139 Take 0.5 Miscellaneous Intramuscular 11/12/19 022 Inactive need tdap - nursing to administer upon arrival pregabalin 50 mg capsule RxNorm: 202406 Take 1 Capsule(s) Oral QAM every morning 10/16/19 022 Inactive pregabalin 50 mg capsule RxNorm: 869844 Take 1 Capsule(s) Oral QAM every morning 10/16/19 22 022 Inactive pregabalin 50 mg capsule RxNorm: 758735 1 Capsule(s) Oral QAM every morning 10/15/19 22 022 Inactive Shingrix (PF) 50 mcg/0.5 mL intramuscular suspension, kit RxNorm: 7880352 Administer 1/2 Milliliter(s) Intramuscular one time Nursing please administer upon arrival and once administered post a bridge message with date of administration, beef pusher, expiration date, and lot# so we can update [facility]. 10/09/19 22 022 Inactive shingrix step 1 Shingrix (PF) 50 mcg/0.5 mL intramuscular suspension, kit RxNorm: 4612310 Administer 1/2 Milliliter(s) Intramuscular one time Nursing please administer upon arrival and once administered post a bridge message with date of administration, beef pusher, expiration date, and lot# so we can [...] aspart 100 unit/mL (3 mL) subcutaneous RxNorm: 9907906 Inject 10 Unit(s) Subcutaneous QHS every night at bedtime with nighttime snack 10/08/19 22 Inactive Shingrix (PF) 50 mcg/0.5 mL intramuscular suspension, kit RxNorm: 4171912 ADMINISTER 2-DOSE SERIES PER CDC GUIDELINES 10/08/19 22 Active Shingrix (PF) 50 mcg/0.5 mL intramuscular suspension, kit RxNorm: 7159070 ADMINISTER 2-DOSE SERIES PER CDC GUIDELINES 10/08/19 22 Inactive Novolog Flexpen U-100 Insulin aspart 100 unit/mL (3 mL) subcutaneous RxNorm: 5989375 Inject 36 Unit(s) Subcutaneous TID in addition to sliding scale 10/08/19 22 Inactive cholecalciferol (vitamin D3) 1,250 mcg (50,000 unit) capsule RxNorm: 376201 Take 1 Capsule(s) Oral QW once a week 10/08/19 Inactive Novofine Autocover 30 gauge x 1/3 needle RxNorm: Use 1 Miscellaneous UD as directed Use 1 needle as directed to administer insulin 5 times a day Dx:E11.42. 10/03/19 22 Inactive ok to substitute with any covered alternative pen needle benzoyl peroxide 10 % topical cleanser RxNorm: 760211 Apply 1 Application Topical QD apply to face, wash rinse and dry once daily (may change to QOD if drying) 08/19/19 22 022 Inactive (%covered by insurance) #60ml refill 11 dx: acne benzoyl peroxide 10 % topical cleanser RxNorm: 053882 Apply 1 Application Topical QD apply to face, wash rinse and dry once daily (may change to QOD if drying) 08/19/19 22 022 Inactive (%covered by insurance) #60ml refill 11 dx: acne benzoyl peroxide 10 % topical cleanser RxNorm: 520661 Apply 1 Application Topical QD apply to face, wash rinse and dry once daily (may change to QOD if drying) 08/19/19 22 022 Inactive (%covered by insurance) #60ml refill 11 dx: acne Lyrica 50 mg capsule RxNorm: 040380 Take 1 Capsule(s) Oral QAM every morning Take 1 capsule by mouth once daily 08/19/19 22 022 Inactive benzoyl peroxide 10 % topical cleanser RxNorm: 788809 Apply 1 Application Topical QD apply to face, wash rinse and dry once daily (may change to QOD if drying) 08/19/19 22 022 Inactive (%covered by insurance) #60ml refill 11 dx: acne Lyrica 100 mg capsule RxNorm: 993695 Take 1 Capsule(s) Oral QHS every night at bedtime Take 1 capsule by mouth once daily at bedtime 08/19/19 22 022 Inactive Lyrica 100 mg capsule RxNorm: 994024 Take 1 Capsule(s) Oral QHS every night at bedtime Take 1 capsule by mouth once daily at bedtime 08/16/19 22 022 Inactive Lyrica 50 mg capsule RxNorm: 444755 Take 1 Capsule(s) Oral QAM every morning Take 1 capsule by mouth once daily 08/16/19 Inactive Levemir FlexTouch U-100 Insulin 100 unit/mL (3 mL) subcutaneous pen RxNorm: 138639 Inject 86 Unit(s) Subcutaneous BID 08/05/19 22 022 Inactive d/c 83units BID Lyrica 100 mg capsule RxNorm: 964611 Take 1 Capsule(s) Oral QHS every night at bedtime Take 1 capsule by mouth once daily at bedtime 07/14/19 22 022 Inactive Lyrica 50 mg capsule RxNorm: 574195 Take 1 Capsule(s) Oral QAM every morning Take 1 capsule by mouth once daily 07/14/19 22 Inactive Levemir FlexTouch U-100 Insulin 100 unit/mL (3 mL) subcutaneous pen RxNorm: 530622 Inject 83 Unit(s) Subcutaneous BID 07/08/19 22 [...] test strip hydralazine 50 mg tablet RxNorm: 094604 Take 1 Tablet(s) Oral QID 05/05/20 21 Inactive venlafaxine ER 225 mg tablet,extended release 24 hr RxNorm: 173150 Take 1 Tablet(s) Oral QD 05/05/20 21 021 Inactive venlafaxine ER 225 mg tablet,extended release 24 hr RxNorm: 113478 Take 1 Tablet(s) Oral QD 05/05/20 21 022 Inactive isosorbide mononitrate ER 30 mg tablet,extended release 24 hr RxNorm: 645135 Take 1 Tablet(s) Oral QD 05/05/20 024 Inactive hydralazine 50 mg tablet RxNorm: 532735 Take 1 Tablet(s) Oral QID 05/05/20 21 021 Inactive aspirin 81 mg tablet,delayed release RxNorm: 577759 Take 1 Tablet(s) Oral QD 03/31/20 022 Inactive Vitamin D2 1,250 mcg (50,000 unit) capsule RxNorm: 0524764 Take 1 Capsule(s) Oral QW once a week x 12 weeks 03/31/20 022 Inactive Vitamin D2 1,250 mcg (50,000 unit) capsule RxNorm: 0978450 Take 1 Capsule(s) Oral QW once a week 03/31/20 021 Inactive Zetia 10 mg tablet RxNorm: 113693 Take 1 Tablet(s) Oral QD 03/31/20 024 Inactive Zetia 10 mg tablet RxNorm: 175385 Take 1 Tablet(s) Oral QD 03/31/20 021 Inactive hydralazine 25 mg tablet RxNorm: 179349 Take 1 Tablet(s) Oral QID 03/31/20 21 021 Inactive hydralazine 25 mg tablet RxNorm: 307588 Take 1 Tablet(s) Oral QID 03/31/20 21 021 Inactive hydralazine 10 mg tablet RxNorm: 680579 Take 1 Tablet(s) Oral QID 03/03/20 21 021 Inactive cephalexin 500 mg tablet RxNorm: 951361 Take 1 Tablet(s) Oral QID 02/27/20 21 021 Inactive cephalexin 500 mg tablet RxNorm: 839284 Take 1 Tablet(s) Oral QID 10 021 Inactive lisinopril 40 mg tablet RxNorm: 853201 Take 1 Tablet(s) Oral QD 02/11/20 023 Inactive Eliquis 5 mg tablet RxNorm: 8095168 Take 1 Tablet(s) Oral BID 01/05/20 21 025 Inactive Eliquis 5 mg tablet RxNorm: 1715449 Take 2 Tablet(s) Oral QD 01/01/20 21 021 Inactive Lyrica 50 mg capsule RxNorm: 997993 Take 1 Capsule(s) Oral QAM every morning 12/24/19 21 021 Inactive Lyrica 100 mg capsule RxNorm: 043525 Take 1 Capsule(s) Oral QHS every night at bedtime 12/24/19 021 Inactive clotrimazole 1 % topical cream RxNorm: 812675 Apply to right foot and toes Topical BID 12/04/19 21 023 Inactive metoprolol succinate ER 200 mg tablet,extended release 24 hr RxNorm: 637939 Take 1 Tablet(s) Oral QD 12/04/19 023 Inactive ciprofloxacin 500 mg tablet RxNorm: 315011 Take 1 Tablet(s) Oral QD 11/30/19 21 021 Inactive DX ofloxacin otic drops Accu-Chek Guide test strips RxNorm: USE 1 TO CHECK GLUCOSE 4 TIMES DAILY AND NEEDED 11/15/19 21 023 Inactive Blood Glucose Test strips RxNorm: Use 1 Test Strip QID at PRN 11/05/19 21 023 Inactive E11.42 lisinopril 30 mg tablet RxNorm: 602222 Take 1 Tablet(s) Oral QD 10/30/19 021 Inactive lisinopril 20 mg tablet RxNorm: 496963 Take 1 Tablet(s) Oral QD 10/23/19 21 021 Inactive lisinopril 20 mg tablet RxNorm: 009561 Take 1 Tablet(s) Oral QD 10/23/19 21 021 Inactive lisinopril 10 mg tablet RxNorm: 172722 Take 1 Tablet(s) Oral QD 10/02/19 21 021 Inactive icosapent ethyl 1 gram capsule RxNorm: 6050586 Take 2 Capsule(s) (2 gm) Oral BID with meals 09/12/19 024 Inactive Okay to dispense one 2gm tab if you have that available. icosapent ethyl 1 gram capsule RxNorm: 3839577 Take 2 Capsule(s) Oral BID 09/12/19 21 021 Inactive Okay to dispense one 2gm tab if you have that available. amlodipine 10 mg tablet RxNorm: 869356 Take 1 Tablet(s) Oral QD 09/04/19 21 021 Inactive aspirin 81 mg tablet,delayed release RxNorm: 472261 Take 1 Tablet(s) Oral QD 09/04/19 21 021 Inactive Levemir FlexTouch U-100 Insulin 100 unit/mL (3 mL) subcutaneous pen RxNorm: 351013 Inject 150 Unit(s) Subcutaneous BID 09/04/19 21 022 Inactive venlafaxine ER 150 mg tablet,extended release 24 hr RxNorm: 672284 Take 1 Tablet(s) Oral QD 09/04/19 21 021 Inactive clotrimazole-betame thasone 1 %-0.05 % topical cream RxNorm: 169345 Apply to rash on red area on left abdomen/chest Topical BID 08/10/19 21 021 Inactive amlodipine 5 mg tablet RxNorm: 765445 Take 1 Tablet(s) Oral QD 07/31/19 21 021 Inactive cephalexin 500 mg tablet RxNorm: 383237 Take 1 Tablet(s) Oral BID BID - Twice Daily 07/31/19 21 021 Inactive Start 08/01/20 pantoprazole 40 mg tablet,delayed release RxNorm: 683757 Take 1 Tablet(s) Oral QAM every morning 07/08/19 21 025 Inactive clopidogrel 75 mg tablet RxNorm: 501525 Take 1 Tablet(s) Oral QD 07/08/19 21 021 Inactive Blood Glucose Test strips RxNorm: Use 1 Test Strip QID at PRN 07/08/19 21 021 Inactive E11.42 senna 8.6 mg tablet RxNorm: 001822 Take 1 Tablet(s) Oral QD 07/08/19 21 025 Inactive Novolog Flexpen U-100 Insulin aspart 100 unit/mL (3 mL) subcutaneous RxNorm: 4338788 Administer per sliding scale Milliliter(s) Subcutaneous TID 151-200: 10 u; 201-250: 20 u; 251-300: 30 u; 301-350: 40 u; 351-400: 50 u. 07/08/19 022 Inactive lisinopril 5 mg tablet RxNorm: 405208 Take 1 Tablet(s) Oral QD 07/08/19 021 Inactive Novolog Flexpen U-100 Insulin aspart 100 unit/mL (3 mL) subcutaneous RxNorm: 6002497 Inject 85 Unit(s) Subcutaneous TID 07/08/19 022 Inactive pravastatin 80 mg tablet RxNorm: 157748 Take 1 Tablet(s) Oral QHS every night at bedtime 07/08/19 023 Inactive clotrimazole 1 % topical cream RxNorm: 655977 Apply to bilateral groin areas Topical BID 07/08/19 022 Inactive metoprolol succinate ER 200 mg tablet,extended release 24 hr RxNorm: 450747 Take 1 Tablet(s) Oral QD 07/08/19 021 Inactive Vitamin D3 25 mcg (1,000 unit) tablet RxNorm: 800789 Take 1 Tablet(s) Oral QD 07/08/19 021 Inactive isosorbide dinitrate 30 mg tablet RxNorm: 035625 Take 1 Tablet(s) Oral QD 07/08/19 21 021 Inactive carbamazepine 200 mg tablet RxNorm: 395848 Take 1 Tablet(s) Oral BID 07/08/19 21 025 Inactive Levemir FlexTouch U-100 Insulin 100 unit/mL (3 mL) subcutaneous pen RxNorm: 165622 Inject 140 Unit(s) Subcutaneous BID 07/08/19 021 Inactive torsemide 20 mg tablet RxNorm: 363265 Take 1 Tablet(s) Oral QD 07/08/19 21 023 Inactive venlafaxine 75 mg tablet RxNorm: 417237 Take 1 Tablet(s) Oral QD 07/08/19 21 021 Inactive acetaminophen 500 mg tablet RxNorm: 846578 Take 1 Tablet(s) Oral TID as needed for headache 06/18/19 21 021 Inactive acetaminophen 500 mg tablet RxNorm: 843422 Take 1 Tablet(s) Oral TID as needed for headache 06/18/19 21 021 Inactive Lyrica 100 mg capsule RxNorm: 560586 Take 1 Capsule(s) Oral QHS every night at bedtime 06/11/19 21 021 Inactive Lyrica 50 mg capsule RxNorm: 855492 Take 1 Capsule(s) Oral QAM every morning 06/10/19 21 021 Inactive hydrocortisone 2.5 % topical cream RxNorm: 964820 Apply to bilateral groin creases Topical BID 05/15/20 20 021 Inactive clotrimazole 1 % topical cream RxNorm: 107173 Apply to bilateral groin areas Topical BID 05/15/20 20 021 Inactive Lyrica 50 mg capsule RxNorm: 593262 Take 1 Capsule(s) Oral QAM every morning 05/14/20 20 020 Inactive Lyrica 100 mg capsule RxNorm: 420680 Take 1 Capsule(s) Oral QHS every night [...] Inactive Nystop 100,000 unit/gram topical powder RxNorm: 966557 Apply to abd folds, under breasts and L side of groin Topical BID x 14 days, then BID PRN 04/08/20 20 Inactive dx: yeast dermatitis Lyrica 100 mg capsule RxNorm: 395821 Take 1 Capsule(s) Oral QHS every night at bedtime 03/13/20 20 Inactive Lyrica 50 mg capsule RxNorm: 274289 Take 1 Capsule(s) Oral QAM every morning 03/13/20 20 Inactive ketoconazole 2 % shampoo RxNorm: 144337 Apply Topical two times a week with showers 03/11/20 20 024 Inactive cholecalciferol (vitamin D3) 50 mcg (2,000 unit) tablet RxNorm: 937956 Take 1 Tablet(s) Oral QD 03/11/20 20 021 Inactive Zetia 10 mg tablet RxNorm: 888557 Take 1 Tablet(s) Oral QD 03/07/20 20 021 Inactive Zetia 10 mg tablet RxNorm: 013843 Take 1 Tablet(s) Oral QD 03/07/20 20 020 Inactive Lyrica 50 mg capsule RxNorm: 127271 Take 1 Capsule(s) Oral QAM every morning 02/15/20 20 Inactive Lyrica 100 mg capsule RxNorm: 615176 Take 1 Capsule(s) Oral QHS every night at bedtime 02/15/20 20 Inactive Lyrica 100 mg capsule RxNorm: 733518 Take 1 Capsule(s) Oral QHS every night at bedtime 02/15/20 20 020 Inactive Lyrica 50 mg capsule RxNorm: 251447 Take 1 Capsule(s) Oral QAM every morning 02/15/20 20 Inactive venlafaxine ER 75 mg capsule,extended release 24 hr RxNorm: 870727 Take 3 Capsule(s) Oral QD 06/12/19 22 023 Inactive polyethylene glycol 3350 17 gram/dose oral powder RxNorm: 008679 Take 17=1 capful Gram(s) Oral BID as needed mix with 4-8oz of liquid 06/12/19 024 Inactive icosapent ethyl 1 gram capsule RxNorm: 0243362 Take 2 Capsule(s) (2 gm) Oral BID with meals 10/07/19 23 023 Inactive Okay to dispense one 2gm tab if you have that available. Levemir FlexTouch U-100 Insulin 100 unit/mL (3 mL) subcutaneous pen RxNorm: 224906 Inject 80 Unit(s) Subcutaneous BID 07/14/19 23 023 Inactive metoprolol succinate ER 200 mg tablet,extended release 24 hr RxNorm: 795813 Take 1 Tablet(s) Oral QD 08/12/19 025 Inactive loperamide 2 mg capsule RxNorm: 740235 Take 1 Capsule(s) Oral QID as needed 09/06/19 025 Inactive hydralazine 50 mg tablet RxNorm: 995302 Take 1 Tablet(s) Oral QID 08/12/19 025 Inactive Soft Touch Lancets RxNorm: miscellaneous 03/04/20 24 025 Inactive Novolog Flexpen U-100 Insulin aspart 100 unit/mL (3 mL) subcutaneous RxNorm: 4404765 Insert 30 Unit(s) Subcutaneous TID with meals [...] Planned Activity Notes Codes Status Date Referral: [facility] [address] [id number] [place] Records [id number]/06/2025Referral: [facility]/Endocrinology WPtel: [address] [facility] [address] [id number] [place]ReferralNo Records [id number]/24/2025Referral: [facility] WPtel: [address], [address] [id number] [place]ReferralRecords [id number]/08/2023Referral: [facility] WPtel: [address] [facility] [address] [id number] PMJnilwngoGfnkajtpy24/12/2022Referral: General CardiologyReferralCompleted 1Referral: General PsychologistReferralClosedReferral: General PsychiatristReferralPatient/Family Scheduling AppointmentReferral: [facility]el: [id number] USReferralFacility Scheduling AppointmentReferral: General Physical Medicine [...] extremity edema Active 01/11/2024 (E11.22-250.40) 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
--- OUTSIDE RECORDS SUMMARY | 2025-04-29 08:45 | XMS_ITS | Clinical Summary ---
Author Organization [facility] Address [address] [place] [address] Phone Care Team Providers Care [employer] Name Role Phone Mellisa Shirley PA-C Primary Care Provider [phone] Allergies Active AllergyReactionsCriticalityNoted PhhoQobgippaEkbdkzsven29/14/2012 Other reaction(s): Hyperkalemia Balxvkxzk32/08/2016 Other reaction(s): Chest Pain Back pain, arm pain Medications MedicationSigDispense QuantityRefillsLast FilledStart DateEnd DateStatus polyethylene glycol (GLYCOLAX) 17 GM/SCOOP powder Take by mouthActive insulin aspart (NovoLOG) 100 UNIT/ML injection Inject 30 Units under the skin in the morning and 30 Units at noon and 30 Units in the evening.05/29/2021ctive insulin detemir (LEVEMIR) 100 UNIT/ML injection Inject 80 Units under the skin in the morning and 80 Units in the evening. 05/26/2021ctive cholecalciferol (VITAMIN D-3) 1.25 MG (81721 UT) capsule Take 1,250 mcg by mouthActive acetaminophen (TYLENOL) 500 MG tablet Take 500 mg by mouthActive albuterol (PROVENTIL) 2 MG tablet Take 2 mg by mouth in the morning and 2 mg at noon and 2 mg in the evening. Active amLODIPine (NORVASC) 10 MG tablet Take 10 mg by mouth every morningActive apixaban (ELIQUIS) 5 MG tablet Take 5 mg by mouth in the morning and 5 mg in the evening.Active aspirin (ST LM) 81 MG EC tablet Take 81 mg by mouth every morningActive carvedilol (COREG) 25 MG tablet Take 50 mg by mouth in the morning and 50 mg in the evening.05/26/2022ctive carBAMazepine (TEGretol) 200 MG tablet Take 200 mg by mouth in the morning and 200 mg in the evening.Active ezetimibe (ZETIA) 10 MG tablet Take 10 mg by mouth in the morning.Active hydrALAZINE 50 MG tablet Take 50 mg by mouth in the morning and 50 mg at noon and 50 mg in the evening and 50 mg before bedtime.Active Icosapent Ethyl 1 g capsule Take 2 capsules by mouth twice a dayActive isosorbide mononitrate (IMDUR) 30 MG 24 hr tablet Take 30 mg by mouth in the morning.Active lisinopril 40 MG tablet Take 40 mg by mouth in the morning.Active pregabalin (LYRICA) 100 MG capsule Take 100 mg by mouth at bed time06/03/2021ctive pregabalin (LYRICA) 50 MG capsule Take 50 mg by mouth every qhloqin6306/03/2021ctive pravastatin (PRAVACHOL) 80 MG tablet Take 80 mg by mouth at bed timeActive pantoprazole (PROTONIX) 40 MG EC tablet Take 40 mg by mouth every morningActive venlafaxine XR (EFFEXOR-XR) 75 MG 24 hr capsule Take 225 mg by mouth in the morning.Active torsemide (DEMADEX) 20 MG tablet Take 20 mg by mouth in the morning.Active senna (SENOKOT) 8.6 MG tablet Take 1 tablet by mouth in the morning.Active loperamide (IMODIUM) 2 MG capsule Take 2 mg by mouthActive Active Problems ProblemNoted DateDiagnosed DateChronic kidney disease, stage 2 (mild)09/21/2022 Flkciywtefg00/08/2023Essential (primary) tobhignecmbi93/08/2023Type 2 diabetes ieghqcxk22/10/2023Morbid cdkhkyp3705/26/2022ellulitis of abdominal wall05/17/2021 Imwaah5905/17/20211181Kjzdrdhe98/16/2013 Family History Medical HistoryRelationCommentsNo Known ProblemsBrotherNo Known ProblemsFatherNo Known ProblemsSisterRelationStatusCommentsBrotherFatherMotherAliveSister Social History Tobacco UseTypesPacks/DayYears UsedDateSmoking Tobacco: NeverSmokeless Tobacco: Never Tobacco Cessation:Counseling Given: Not Answered Alcohol UseStandard Drinks/WeekCommentsNot Currently0 (1 standard drink = 0.6 oz pure alcohol)Sex and Gender InformationValueDate RecordedSex Assigned at Not on fileLegal UzhLaxh9008/31/2022 4:09 PM EDTGender IdentityNot on fileSexual OrientationNot on file Last Filed Vital Signs Vital SignReadingTime TakenCommentsBlood Rlagvwbx186/7405 2:37 PM CDT Pulse--Temperature--Respiratory Rate--Oxygen Saturation--Inhaled Oxygen Concentration--Ifvxlc134 kg (396 lb)09/21/2022 2:37 PM CDTunable to weighHeight- -Body Mass Index-- Plan of Treatment Health MaintenanceDue DateLast DoneCommentsPneumococcal Vaccine: 50+ Years (1 of 2 - PCV)09/13/1978Colorectal Cancer Screening: Annual FOBT09/13/2008Colorectal Cancer Screening: Nuaycxdwycg96/30/2009Colorectal Cancer Screening: Vbfdutnmmkqlf14/30/2009Diabetes: Hemoglobin A1C3Diabetes: Ophthalmology Exam3Diabetes: Pedal Pulse Eicjwld87/17/2023Diabetes: Sensory Foot Exam 08/31/2022iabetes: Visual Foot Exam08/31/2022Influenza Vaccine (#1)2025 05/29/2021Hepatitis B VaccineAged OutNo longer eligible based on patient's age to complete this topic Insurance Care Teams Team MemberRelationshipSpecialtyStart DateEnd Date Mellisa Shirley PA-C PCP - GeneralPhysician Assistant08/31/22
--- OUTSIDE RECORDS SUMMARY | 2025-04-29 08:54 | XMS_ITS | Clinical Summary ---
Author Organization [place] Address [address] [place] [address] Care Team Providers Care Registered Nurse Behavioral Health Name Role Phone Services, [facility] Physician Primary Care Provi sadia Prince Tobar MD Unavailable Unava ilable Matilde Pérez PA-C Unavailable [phone] Torie Jimenez APRN IT ARCHITECT Unavaila ble Reinaldo BeltranC Unavailable [phone] Torie Jimenez APRN IT ARCHITECT Unavaila ble Igor Trimble MD Unavailable Un available Allergies Active AllergyReactionsCriticalityNoted SszaCqdoxasuPnldsgdyua99/14/2012 Other reaction(s): Hyperkalemia Onmmrewhb39/08/2016 Other reaction(s): Chest Pain Back pain, arm pain Medications MedicationSigDispense QuantityRefillsLast FilledStart DateEnd DateStatus pantoprazole (PROTONIX) 40 MG EC tablet Take 40 mg by mouth every morningActive aspirin 81 MG EC tablet Take 81 mg by mouth every morningActive sennosides (SENOKOT) 8.6 MG tablet Take 1 tablet by mouth dailyActive torsemide (DEMADEX) 20 MG tablet Take 20 mg by mouth 2 times dailyActive pravastatin (PRAVACHOL) 80 MG tablet Take 80 mg by mouth At BedtimeActive carBAMazepine (TEGRETOL) 200 MG tablet Take 200 mg by mouth 2 times dailyActive clotrimazole (LOTRIMIN) 1 % external cream Apply topically 2 times daily Apply topically to feet and in between toes, groin, periarea, and abdomen areas 2 times daily.Active amLODIPine (NORVASC) 10 MG tablet Take 10 mg by mouth every morningActive Icosapent Ethyl 1 g CAPS Take 2 capsules by mouth 2 times daily (with meals)Active apixaban ANTICOAGULANT (ELIQUIS) 5 MG tablet Take 5 mg by mouth 2 times dailyActive ezetimibe (ZETIA) 10 MG tablet Take 10 mg by mouth dailyActive cholecalciferol (VITAMIN D3) 1250 mcg (29878 units) capsule Take 1,250 mcg by mouth every 7 days on Wednesdays.Active venlafaxine (EFFEXOR-XR) 75 MG 24 hr capsule Take 225 mg by mouth dailyActive hydrALAZINE (APRESOLINE) 50 MG tablet Take 50 mg by mouth 4 times dailyActive polyethylene glycol (MIRALAX) 17 GM/Dose powder Take 17 g by mouth dailyActive nystatin (MYCOSTATIN) 637707 UNIT/GM external powder Apply topically 2 times daily as needed to abdominal folds under breasts and left side of groin.Active acetaminophen (TYLENOL) 500 MG tablet Take 500 mg by mouth 3 times dailyActive ketoconazole (NIZORAL) 2 % external shampoo Apply topically every 3 days Apply topically to affected areas topically with showersActive loperamide (IMODIUM) 2 MG capsule Take 2 mg by mouth 4 times daily as needed for diarrheaActive diphenhydrAMINE (BENADRYL) 50 MG capsule Take 50 mg by mouth every 6 hours as needed for itching or allergiesActive ARIPiprazole (ABILIFY) 15 MG tablet Take 7.5 mg by mouth dailyActive carvedilol (COREG) 25 MG tablet Take 25 mg by mouth dailyActive chlorthalidone (HYGROTON) 25 MG tablet Take 25 mg by mouth dailyActive fluconazole (DIFLUCAN) 150 MG tablet Take 150 mg by mouth twice a week on Tuesdays and FridaysActive insulin reg HIGH CONC (HUMULIN R U-500 HIGH CONC) 500 Units/mL injection Inject 100 Units Subcutaneous 3 times daily at AM, midday, PMActive insulin detemir (LEVEMIR PEN) 100 UNIT/ML pen Inject 30 Units Subcutaneous 2 times daily 9AM and 9PMActive semaglutide (OZEMPIC, 0.25 OR 0.5 MG/DOSE,) 2 MG/3ML pen Inject 0.5 mg Subcutaneous every 7 days on .Active pregabalin (LYRICA) 100 MG capsule Take 100 mg by mouth every morningActive pregabalin (LYRICA) 150 MG capsule Take 150 mg by mouth every eveningActive potassium chloride ER (K-TAB) 20 MEQ CR tablet Take 20 mEq by mouth 2 times dailyActive albuterol (PROAIR HFA/PROVENTIL HFA/VENTOLIN HFA) 108 (90 Base) MCG/ACT inhaler Inhale 2 puffs into the lungs every 4 hours as needed for shortness of breath, wheezing or coughActive metoprolol succinate ER (TOPROL XL) 200 MG 24 hr tablet Take 200 mg by mouth dailyActive isosorbide mononitrate (IMDUR) 60 MG 24 hr tablet Indications:Chest pain, unspecified typeTake 1 tablet (60 mg) by mouth daily 30 tablet ctive nitroGLYcerin 0.2% ointment Apply 1 click (0.25 g) topically 2 times daily for 7 days 4 g 12/28/2023ctive insulin glargine (LANTUS PEN) 100 UNIT/ML pen Inject 30 Units subcutaneously 2 times daily. 18 mL 03/08/2024ctive insulin reg HIGH CONC (HUMULIN R U-500 KWIKPEN) 500 UNIT/ML PEN soln Inject 100 Units subcutaneously 3 times daily (before meals). 18 mL 03/08/2024ctive Active Problems ProblemNoted DateDiagnosed DateElevated fzcfwebq47/02/2023hest pain, unspecified type12/16/2022iabetes mellitus, type Morbid obesity 05/26/2022bdominal wall iwpnvhfngf54/01/2022epsis, due to unspecified organism, unspecified whether acute organ dysfunction pbewjoo7605/17/2021 Persistent ttjikyrvy61/16/6911Hryiksmg76/16/2013 Immunizations ImmunizationAdministration DatesNext DueCOVID-19 MONOVALENT 12+ (Pfizer) 06/25/2020,06/04/20200172S0q1-05 Novel Flu05/07/2009Hepatitis B, Adult (Energix- B/Recombivax HB)02/16/2014,10/12/2013,03/14/2013Influenza (H1N1)05/07/2009 Influenza (IIV3) PF05/07/2020,03/14/2013,02/08/2012,03/15/2009,05/18/2007 Influenza Vaccine 18-64 (Flublok)05/29/2021Influenza Vaccine >6 months,quad, PF 04/03/2022,02/13/2019,02/21/2018,02/17/2017,03/02/2016,02/21/2015,02/16/2014 Influenza Vaccine, 6+MO IM (QUADRIVALENT W/PRESERVATIVES)03/03/2016Pneumococcal 23 ourqqi8601/08/2005TDAP (Adacel,Boostrix)02/12/2022,05/07/2009Zoster recombinant adjuvanted (Shingrix)03/24/2022,11/04/2021 Social History Tobacco UseTypesPacks/DayYears UsedDateSmoking Tobacco: NeverSmokeless Tobacco: Never Tobacco Cessation:Counseling Given: Not Answered Alcohol UseStandard Drinks/WeekCommentsNot Currently0 (1 standard drink = 0.6 oz pure alcohol)PHQ-2AnswerDate RecordedPHQ-2 Znthz090dolescent Education AnswerDate RecordedGetting School Help NeededNot on file02/13/2023Sex and Gender InformationValueDate RecordedSex Assigned at BirthNot on fileLegal SexMale 03/20/2012 3:35 AM CSTGender IdentityNot on fileSexual OrientationChoose not to /07/2022 8:14 AM OSTEOPATHIC RESIDENT Last Filed Vital Signs Vital SignReadingTime TakenCommentsBlood Yvgohxql016/75006/19/2024 12:32 PM OSTEOPATHIC RESIDENT Rerix697006/19/2024 12:32 PM CIIPqnspvsqnjv08.6 ??C (97.8 ??F)03/08/2024 7:44 AM CDTRespiratory Sjdn7841 5:07 PM CDTOxygen Nxdeyzvkeu16%06/19/2024 12:32 PM CSTInhaled Oxygen Concentration--Xnjtxc020.9 kg (390 lb)06/19/2024 12:32 PM QJHIrijmh634.2 cm (5' 7)06/19/2024 12:32 PM CSTBody Mass Index61.0806/19/2024 12:32 PM OSTEOPATHIC RESIDENT Plan of Treatment DateTypeDepartmentCare Team (Latest Contact Info)Lruustdrmbu13/17/2025 1:15 PM CSTOffice Visit [facility] [address] [place] [address] Stephanie Conn MD [address] [facility] [address] [place], [place] [id number] Igor Trimble MD Health MaintenanceDue DateLast DoneCommentsANNUAL REVIEW OF DEMMBQ60 [address] CT CWCSQOJWZXTO64/30/1960DIABETIC FOOT EXAM1959EYE EXAM1959FIT 1959FLEX SIG1959 7778JKINFSODEQDC09/30/1960DNA (Cologuard)1959 FYQAQKJYMFY31/30/1970COLORECTAL CANCER BDZADLMRO14/30/1970HIV SCREENING 09/13/1974HEPATITIS C QEIRDGGRT21/30/1978PNEUMOCOCCAL VACCINE 50+ YEARS (2 of 2 - PCV)RSV VACCINE (1 - Risk 50-74 years 1-dose series) 09/13/2009FALL RISK MOCWYMYHXB69/30/2025MEDICARE ANNUAL WELLNESS VISIT09/13/2024 02/02/2023, 11/11/2021, 1COVID-19 VACCINE ( season) /06/2023, 06/02/2023, 04/03/2022, Additional history existsINFLUENZA VACCINE (#1)/06/2023, 06/02/2023, 04/03/2022, Additional history uxyyznY7L15/03/2025, 09/08/2024, 10/15/2023, Additional history exists LIPID/5324GKI808/03/2025, 09/08/2024, 05/15/2024, Additional history existsADVANCE CARE NLEQJAOH71/17/292578/2DTAP/TDAP/TD VACCINE (3 - Td or Tdap), 05/07/2009ZOSTER VACCINECompleted 03/24/2022, 2PHQ-2 (once per calendar year)Ltusmfaka58/03/2025HPV VACCINE (No Doses Required)CompletedMENINGITIS VACCINEAged OutNo longer eligible based on patient's age to complete this topic Procedures Procedure NamePriorityDate/TimeAssociated DiagnosisCommentsBASIC METABOLIC PANEL Dgpzsiw6512/25/2024 9:00 AM CDT Type 2 diabetes mellitus with diabetic polyneuropathy (H) Hypokalemia Hypertensive heart disease without heart failure HEMOGLOBIN T1JZejjtwo86/11/2025 9:00 AM CDT Type 2 diabetes mellitus with diabetic polyneuropathy (H) Hypokalemia Hypertensive heart disease without heart failure LIPID QBZHBQXNxcwxra77/30/2024 11:20 AM OSTEOPATHIC RESIDENT Type 2 diabetes mellitus with other specified complication (H) Hypokalemia 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) Hypertensive heart disease without heart failure from Last 3 Months or Most Recently Relevant to Health Maintenance Results * (ABNORMAL) Hemoglobin A1c (12/25/2024 9:00 AM CDT)ComponentValueRef RangeTest MethodAnalysis TimePerformed AtPathologist SignatureEstimated Average Glucose 180(H)<117 mg/dL12/25/2024 11:26 AM CDTR LABORATORYHemoglobin A1C7.9(H)<5.7 % 12/25/2024 11:26 AM CDTR LABORATORYComment: Normal <5.7% Prediabetes 5.7-6.4% ?? Diabetes 6.5% or higher Note: Adopted from ADA consensus guidelines. Specimen (Source)Anatomical Location / LateralityCollection Method / Volume Collection TimeReceived TimeBloodSTRUCTURE OF RIGHT UPPER LIMB / UnknownClient Draw / Wxlisfv0612/25/2024 9:00 AM CDT12/25/2024 10:48 AM CDT Narrative Authorizing ProviderResult TypeResult StatusMcKaylan Munson NPLAB - BLOOD ORDERABLESFinal ResultPerforming OrganizationAddressCity/State/ZIP CodePhone Number [facility] [address] Lab (1st floor, no room number) [place] [address], [facility] * (ABNORMAL) Basic metabolic panel (12/25/2024 9:00 AM CDT)ComponentValueRef RangeTest MethodAnalysis TimePerformed AtPathologist UbxhfopxlRqorqp194841 - 145 mmol/L12/25/2024 11:16 AM CDTRH LABORATORYPotassium4.03.4 - 5.3 mmol/L 12/25/2024 11:16 AM CDTRH DYVOPVJHBDTihuhxsb6210 - 107 mmol/L12/25/2024 11:16 AM CDTRH LABORATORYCarbon Dioxide (CO2)2622 - 29 mmol/L12/25/2024 11:16 AM CDT LABORATORYAnion Dnf690 - 15 mmol/L12/25/2024 11:16 AM CDTRH LABORATORYUrea Mdzawijg63.9(H)8.0 - 23.0 mg/dL12/25/2024 11:16 AM CDTRH LABORATORYCreatinine 1.36(H)0.67 - 1.17 mg/dL12/25/2024 11:16 AM CDTRH LABORATORYGFR Iwmjcxdt22(L) >60 mL/min/1.98g85612/25/2024 11:16 AM CDTRH LABORATORYComment:eGFR calculated using 2020 CKD-EPI equation.Calcium9.08.8 - 10.4 mg/dL12/25/2024 11:16 AM CDT HEGVXPHLZMTqjpdnx037(H)70 - 99 mg/dL12/25/2024 11:16 AM CDTRH LABORATORY Specimen (Source)Anatomical Location / LateralityCollection Method / Volume Collection TimeReceived TimeBloodSTRUCTURE OF RIGHT UPPER LIMB / UnknownClient Draw / Gvyxvjd8112/25/2024 9:00 AM CDT12/25/2024 10:48 AM CDT Narrative Authorizing ProviderResult TypeResult StatusHarrison Munson NPLAB - BLOOD ORDERABLESFinal ResultPerforming OrganizationAddressCity/State/ZIP CodePhone Number [facility] [address] Lab (1st floor, no room number) [place] [address], [facility] * (ABNORMAL) Lipid Profile (05/15/2024 11:20 AM OSTEOPATHIC RESIDENT)ComponentValueRef RangeTest MethodAnalysis TimePerformed AtPathologist FnxjvsvqqVjxbrmifxvx859<200 mg/dL 05/15/2024 6:03 PM CSTUU KXZWJQHUWOVwmcmmmguqgck633(H)<150 mg/dL05/15/2024 6:03 PM CSTUU LABORATORYDirect Measure HDL28(L)>=40 mg/dL05/15/2024 6:03 PM CSTUU LABORATORYLDL Cholesterol Bwhzxkvydm20/30/2024 6:03 PM CSTUU LABORATORY Comment:Cannot estimate LDL when triglyceride exceeds 400 mg/dLNon HDL Avzdnryamrr63<130 mg/dL05/15/2024 6:03 PM CSTUU LABORATORYPatient Fasting > 8hrs?No05/15/2024 6:03 PM CSTRH LABORATORYSpecimen (Source)Anatomical Location / LateralityCollection Method / VolumeCollection TimeReceived TimeBloodBLOOD SPECIMEN / UnknownClient Draw / Dtryprc7205/15/2024 11:20 AM CST05/15/2024 12:53 PM OSTEOPATHIC RESIDENT Narrative [facility] - 05/15/2024 6:03 PM OSTEOPATHIC RESIDENT Cholesterol Desirable: < 200 mg/dL Borderline High: [...] Borderline High: 130 - 159 mg/dL High: ??160 - 189 mg/dL Very High: >= 190 mg/dL Non HDL Cholesterol Desirable: < 130 mg/dL Above Desirable: 130 - 159 mg/dL Borderline High: 160 - 189 mg/dL High: 190 - 219 mg/dL Very High: >= 220 mg/dL Authorizing ProviderResult TypeResult StatusMcKenzie Arenac NPLAB - BLOOD ORDERABLESFinal ResultPerforming OrganizationAddressCity/State/ZIP CodePhone Number [facility] [place] [facility] [address], [address] [place] [address], [place] LABORAT[facility] [address] [facility] (1st floor, no room number) [place] [address], [facility] from Last 3 Months or Most Recently Relevant to Health Maintenance Insurance * Guarantor: Leonid Leahy TypeRelation to PatientDate of BirthPhone Billing AddressPersonal/RgkdmuWwqg41/30/1961 [address] [place] [address] Advance Directives For more information, please contact: [phone] TypeDate RecordedPatient RepresentativeExplanationAdvance Directives and Living Will06/02/2021* Alternative Resolutions (GUARDIAN) Legal Guardianship 10-18-2013 * Full Code (Latest Code Status on File) Date ActivatedDate InactivatedComments12/16/2022 2:40 PM12/18/2022 7:20 PMAll basic and advanced life-sustaining interventions are performed as appropriateQuestion AnswerCommentsCode status determined by:* Discussion with patient/ legal decision maker * Full Code Date ActivatedDate InactivatedComments05/18/2021 3:06 AM06/03/2021 6:27 PMAll basic and advanced life-sustaining interventions are performed as appropriateQuestion AnswerCommentsCode status determined by:* Discussion with patient/ legal decision maker Care Teams Team MemberRelationshipSpecialtyStart DateEnd Date Services, [facility] Physician [address] [address] PCP - General05/22/21 Prince Tobar MD [address] [address] MDCardiovascular Jqequdu67/10/22 Matilde Pérez PA-C [address] [place] [address] Physician AssistantPhysician Propulsion Machinery Service Engineer - Surgical12/30/23 Torie Jimenez, VETERINARY EPIDEMIOLOGIST IT ARCHITECT [address] [facility] [address] [place] [address] Nurse PractitionerColon & Ycrhzh88/1/24 Reinaldo Beltran PA-C [facility] [address] [place] [phone] Physician AssistantEmergen Tptqjwys14/1/24 Torie Jimenez APRN IT ARCHITECT [address] [address] Assigned Surgical Provider07/09/24 Igor Trimble MD MDCardiovascular Disease12/13/24
[2025-04-29 09:03] LABS: Hematocrit* 38.1 % (37.0-53.0); Hemoglobin* 12.3 gm/dL (13.5-17.5); Immature Granulocytes Abs Auto 0.02 K/uL (0.00-0.30); Immature Granulocytes Pct Auto 0.2 %; Mean Corpuscular HGB Conc 32 gm/dL (32-36); Mean Corpuscular Hemoglobin 27 pg (26-34); Mean Corpuscular Volume 84 fL (80-100); RDW Coefficient of Variation % 15.7 % (11.5-15.5); Red Blood Count* 4.53 m/uL (4.30-5.90); White Blood Count* 8.76 K/uL (4.50-11.00)
--- OUTSIDE RECORDS SUMMARY | 2025-04-29 09:04 | XMS_ITS | CCD ---
Author Name Cecilio Durham Address [address] [facility] [address] [place] [address] Phone Organization [facility] Phone Care Team Providers Care Gasket Notcher Name Role Phone Harrison Durham Primary Care Provider Leona vailable Unavailable Chronic Care Management Unavaila ble Summary Purpose DataExchange Insurance Providers Payer name Policy type / Coverage type Covered green party ID Effective Begin Date Effective End Date Medicare [place] Medicare Part B [id number] Unknown Unknown Medicaid [place] Medicare [place] B [id number] Unknown Unknown Family history Sister Brittany Suggs [...] on file 07/11/[address]: 550828431 Never smoker 01/16 Sexually Active? Unknown No [...] Unknown Longterm 09/03/[address]: 754933384 No Alcohol Consum ption 09/02/2020 Allergies, Adverse Reactions, Alerts Substance Reaction Codes Entered Date Inactivated Date Status * NO KNOWN FOOD ALLERGIES Aznkrub5107/13/2023No Inactive DateActiveLISINOPRILRxNorm: 406587002/12/2020No Inactive DateActiveMetformin QZgQqvrhqg47/28/2020No Inactive DateActive* NO KNOWN ENVIRONMENTAL HLPMPPGFTEwdcbis00/27/2024No Inactive DateActive Past Medical History Illness Codes Condition Status Onset Date Resolved Date Coronary artery disease invo lving [place] coronary artery of [place] heart, angina presence unspecified ICD-10: I25.10 ICD-9: 414.12Kfmfrq36/23/2025UnknownDiabetic neuropathy associated with type 2 diabetes mellitusICD-10: E11.40 ICD-9: 250.07Zjospi97/03/2025Lower extremity edemaICD-10: R60.0 ICD-9: 782.0Myykyf5502/06/2025UnknownOSA (obstructive sleep apnea)ICD-10: G47.33 ICD-9: 327.24Vkwnrc91/23/2025UnknownPoor dental hygieneSNOMED CT: 143235789 ICD-10: Z91.89 ICD-9: 525.3Fthopw1502/06/2025UnknownSimple chronic bronchitisSNOMED CT: 05448946 ICD-10: J41.0 ICD-9: 491.8Vewptx4602/06/2025UnknownCKD stage 3a, GFR 45-59 ml/[address]: 047498243 ICD-10: N18.31 ICD-9: 585.1Axqwxs35Hypertensive heart disease without heart failureICD-10: I11.9 ICD-9: 402.66Sbcspf55/26/2025UnknownOnychogryposisICD-10: L60.2 ICD-9: 703.3Jrducp7401/09/2025UnknownType 2 diabetes mellitus with diabetic chronic kidney diseaseICD-10: E11.22 ICD-9: 250.21Nklctx32/26/2025UnknownBody mass index [BMI] 60.0-69.9, adultICD- 10: Z68.44 ICD-9: V85.27Azvsou35/07/2025UnknownHistory of recent hospitalizationSNOMED CT: 853179814 ICD-10: Z92.89 ICD-9: V13.8Mwxbdf3712/21/2024UnknownHypokalemiaICD-10: E87.6 ICD-9: 276.3Opgstr8712/21/[address] incontinenceSNOMED CT: 68300500 ICD-10: N39.46 ICD-9: 788.92Gypvuy52/07/2025UnknownType 2 diabetes mellitus with diabetic polyneuropathy, with long-term current use of insulinICD-10: E11.42 ICD-9: 250.98Qysccr83/07/2025UnknownCandidal intertrigoICD-10: B37.2 ICD-9: 112.0Cmaymj5612/12/2024UnknownPulmonary noduleICD-10: R91.1 ICD-9: 793.97Qhjump47/29/2025UnknownConstipation by delayed colonic transitICD- 10: K59.01 ICD-9: 564.01Narjjb45/24/2025UnknownLoose stoolsICD-10: R19.5 ICD-9: 787.8Xnpwdz1211/07/2024UnknownParaparesis of both lower limbsICD-10: G82.20 ICD-9: 344.6Yfzbgo5111/07/2024UnknownSeizure disorderICD-10: G40.909 ICD-9: 345.62Rwsccq97/24/2025UnknownAmputated toe of right footICD-10: S98.131A ICD-9: 895.2Ddfjoo27/27/20240517/03/2025Hypercoagulable stateICD-10: D68.59 ICD-9: 289.44Zbruzv35/27/2025UnknownMajor depression, recurrentICD-10: F33.9 ICD-9: 296.71Upguor03/27/2025UnknownRecurrent major depressive disorder, in partial remissionICD-10: F33.41 ICD-9: 296.18Ohyvex81/27/2025UnknownPressure ulcer of left calf, unstageableICD- 10: L89.890 ICD-9: 707.00Ubvhvbjc31/27/2025UnknownHemorrhoidsICD-10: K64.9 ICD-9: 455.2Rwaqbj8207/11/2024UnknownPVD (peripheral vascular disease)ICD-10: I73.9 ICD-9: 443.6Zwvqtq6407/11/2024UnknownHyperlipidemia associated with type 2 diabetes mellitusICD-10: E11.69 ICD-9: 250.58Wulkes99/28/2025UnknownAdvance care planningICD-10: Z71.89 ICD-9: V65.85Axfdwh41/23/20230517/03/2025Low back painICD-10: M54.50 ICD-9: 724.4Esbarj2903/07/2024UnknownPhysical deconditioningICD-10: R53.81 ICD-9: 799.5Qhukqt1803/07/2024UnknownAdvanced care planning - to document end of life enktpnqagjbHqbduttQanuvg17/24/2024UnknownAnnual physical examICD-10: Z00.00 ICD-9: V70.0Ezqzhr13/03/2025History of anemia due to CKDICD-10: N18.9 ICD-9: 585.6Exouvt3102/08/2024UnknownHx of deep venous thrombosisICD-10: Z86.718 ICD-9: V12.79Wsllxd22/24/2024UnknownLearning disabilityICD-10: F81.9 ICD-9: 315.6Bqmjdn5002/08/2024UnknownReducible umbilical herniaICD-10: K42.9 ICD-9: 553.6Iqdzgi5202/08/2024UnknownVitamin D deficiencyICD-10: E55.9 ICD-9: 268.2Gmorfj8102/08/2024UnknownCallus of heelICD-10: L84 ICD-9: 116Qkqaikar70/28/2024UnknownGout due to renal impairmentICD-10: M10.30 ICD-9: 274.25Atvystgx23/28/2024UnknownHyperhidrosis of palmsICD-10: L74.512 ICD-9: 705.00Jxfvofrs70/28/2024UnknownHyperlipidemia, unspecifiedICD-10: E78.5 ICD-9: 272.1Lfsqajgd63/28/2024UnknownOther intermediate teacher (current) drug therapyICD- 10: Z79.899 ICD-9: V58.30Qiuvkbph75/28/2024UnknownPain of right heelICD-10: M79.671 ICD-9: 729.2Zsbbnmrn10/28/2024UnknownStage 2 chronic kidney diseaseICD-10: N18.2 ICD-9: 585.8Rcuifftm23/28/2024UnknownTinea pedis of both feetICD-10: B35.3 ICD-9: 110.9Tkmpdnec66/28/2024UnknownCellulitisICD-10: L03.90 ICD-9: 682.6Xyxwysht57/23/2024UnknownDandruff in adultICD-10: L21.0 ICD-9: 690.71Qvmuwzfh94/23/2024UnknownEncounter for other specified special examinationsICD-10: Z01.89 ICD-9: V72.99Nafvyggc08/23/2024UnknownEncounter for screening for nutritional disorderICD-10: Z13.21 ICD-9: V77.15Ttygwfec52/23/2024UnknownImpacted cerumen, left earICD-10: H61.22 ICD-9: 380.7Krvrlief71/23/2024UnknownShortness of breathICD-10: R06.02 ICD-9: 786.86Mnsaajav41/23/2024UnknownSkin tagICD-10: L91.8 ICD-9: 701.3Sbiwuspk46/23/2024UnknownInappropriate sexual behaviorICD-10: Z72.89 ICD-9: 312.65Rrdhpf78UnknownPre-op evaluationICD-10: Z01.818 ICD-9: V72.54Uqxift83/28/2023UnknownSecondary hypertensionICD-10: I15.9 ICD-9: 405.87Ajubso84/28/2023UnknownDepressionICD-10: F32.9 ICD-9: 292Udxfwgma60/27/2022UnknownDVT (deep venous thrombosis)ICD-10: I82.409 ICD-9: 453.27Rxlvwnxx34/27/2022UnknownEncounter for immunizationICD-10: Z23 ICD-9: V03.75Zwdnthpk18/27/2022UnknownLong term (current) use of insulinICD-10: Z79.5Sdfzujti15/27/2022UnknownMuscular painICD-10: M79.10 ICD-9: 729.2Sfegynld41/27/2022UnknownHypertension associated with diabetesICD- 10: E11.59 ICD-9: 250.36Qvvtylvk39/23/2022UnknownContact with and (suspected) exposure to jnppn-55AZJ-63: Z20.822 ICD-9: V01.06Whcjpgst70/17/2021UnknownOther infective acute otitis externa of left earICD-10: H60.392 ICD-9: 380.48Zzvhrszy45/17/2021UnknownScrotal skin lesionICD-10: N50.9 ICD-9: 608.6Qveapjge63/17/2021UnknownAnemia due to stage 3b chronic kidney diseaseICD-10: N18.32 ICD-9: 285.43Krxjkquy33/18/2021UnknownChronic kidney disease, stage 3 unspecifiedICD-10: N18.11Catglspc85/20/2021UnknownContact with and (suspected) exposure to other viral communicable diseasesICD-10: Z20.828 ICD-9: V01.32Tppmxfes904837AtkoumfHfmwfmbzSshgghlHkfkuy63/28/2020Unknown Diabetes mellitus Type 0RtadwkfUnqytd06/28/2020UnknownAnemia in chronic kidney diseaseICD-10: D63.7Yvntuxsj77/28/2020UnknownHyperlipidemia, unspecifiedICD-10: E78.3Yxzrytrh20/28/2020Unknown Problems Condition Codes Effective Dates Condition St atus Coronary artery disease invo lving [place] coronary artery of [place] heart, angina presence unspecified ICD-10: I25.10 ICD-9: 414.0109/5ActiveDiabetic neuropathy associated with type 2 diabetes mellitusICD-10: E11.40 ICD-9: 250.6009/5ActiveLower extremity edemaICD-10: R60.0 ICD-9: 782.309/5ActiveOSA (obstructive sleep apnea)ICD-10: G47.33 ICD-9: 327.2309/5ActivePoor dental hygieneSNOMED CT: 682478079 ICD-10: Z91.89 ICD-9: 525.8095ActiveSimple chronic bronchitisSNOMED CT: 19618260 ICD-10: J41.0 ICD-9: 491.009/5ActiveCKD stage 3a, GFR 45-59 ml/minSN[address]ED [address]: 066356490 ICD-10: N18.31 ICD-9: 585.308/5ActiveHypertensive heart disease without heart failureICD- 10: I11.9 ICD-9: 402.9008/5ActiveOnychogryposisICD-10: L60.2 ICD-9: 703.8085ActiveType 2 diabetes mellitus with diabetic chronic kidney diseaseICD-10: E11.22 ICD-9: 250.4008/5ActiveBody mass index [BMI] 60.0-69.9, adultICD-10: Z68.44 ICD-9: V85.44085ActiveHistory of recent hospitalizationSNOMED CT: 015834390 ICD-10: Z92.89 ICD-9: V13.908/5ActiveHypokalemiaICD-10: E87.6 ICD-9: 276.808/5ActiveMixed incontinenceSNOMED CT: 74735075 ICD-10: N39.46 ICD-9: 788.3308/5ActiveType 2 diabetes mellitus [...] planning - to document end of life gbahyszfsubNjfmkje31/24/2024ctiveAnnual physical examICD-10: Z00.00 ICD-9: V70.009ctiveHistory of anemia due to CKDICD-10: N18.9 ICD-9: 585.909ctiveHx of deep venous thrombosisICD-10: Z86.718 ICD-9: V12.5109ctiveLearning disabilityICD-10: F81.9 ICD-9: 315.209ctiveReducible umbilical herniaICD-10: K42.9 ICD-9: 553.109ctiveVitamin D deficiencyICD-10: E55.9 ICD-9: 268.909ctiveCallus of heelICD-10: L84 ICD-9: 24710/esolvedGout due to renal impairmentICD-10: M10.30 ICD-9: 274.1005esolvedHyperhidrosis of palmsICD-10: L74.512 ICD-9: 705.21010/12/2023esolvedHyperlipidemia, unspecifiedICD-10: E78.5 ICD-9: 272.405esolvedOther intermediate teacher (current) drug therapyICD-10: Z79.899 ICD-9: V58.6905esolvedPain of right heelICD-10: M79.671 ICD-9: 729.505esolvedStage 2 chronic kidney diseaseICD-10: N18.2 ICD-9: 585.205esolvedTinea pedis of both feetICD-10: B35.3 ICD-9: 110.405esolvedCellulitisICD-10: L03.90 ICD-9: 682.904/esolvedDandruff in adultICD-10: L21.0 ICD-9: 690.1804/4ResolvedEncounter for other specified special examinationsICD-10: Z01.89 ICD-9: V72.8504/esolvedEncounter for screening for nutritional disorder ICD-10: Z13.21 ICD-9: V77.9904esolvedImpacted cerumen, left earICD-10: H61.22 ICD-9: 380.404/esolvedShortness of breathICD-10: R06.02 ICD-9: 786.0504/esolvedSkin tagICD-10: L91.8 ICD-9: 701.904esolvedInappropriate sexual behaviorICD-10: Z72.89 ICD-9: 312.8910/3ActivePre-op evaluationICD-10: Z01.818 ICD-9: V72.8403/ctiveSecondary hypertensionICD-10: I15.9 ICD-9: 405.9903/ctiveDepressionICD-10: F32.9 ICD-9: 47522/2ResolvedDVT (deep venous thrombosis)ICD-10: I82.409 ICD-9: 453.4009esolvedEncounter for [...] to other viral communicable diseasesICD-10: Z20.828 ICD-9: V01.79028796SgnpktynFceemajrDbmeayh86/28/2020ActiveDiabetes mellitus Type 3Xuhtolq53/28/2020ActiveAnemia in chronic kidney diseaseICD-10: D63.1 02/12/2020ResolvedHyperlipidemia, unspecifiedICD-10: E78.Resolved Medications Medication Codes Instructions Start Date Stop Date Status Fill Instructions pregabalin 150 mg capsule RxNorm: 307297 1 CAPSULE BY MOUTH AT BEDTIME (DX: NEUROPATHY) 01/13/20 25 026 Active PLEASE SEND NEW RX, PATIENT IS ALMOST OUT. THANKS! clotrimazole 1 % topical cream RxNorm: 323901 apply one application to affected and surrounding area(s) of skin BID until clinical resolution (abdominal and thigh folds), typically 1-4 weeks.Pause nystatin powder use while using clotrimazole cream. 01/03/20 25 025 Inactive clotrimazole 1 % topical cream RxNorm: 647868 apply one application to affected and surrounding area(s) of skin BID until clinical resolution (abdominal and thigh folds), typically 1-4 weeks. Pause nystatin powder use while using clotrimazole cream. 01/03/20 25 025 Inactive Culturelle 10 billion cell capsule RxNorm: 742971 Take 1 Capsule(s) Oral QD 11/08/19 25 026 Active Culturelle 10 billion cell capsule RxNorm: 591485 Take 1 Capsule(s) Oral QD 11/08/19 25 025 Inactive hydrocodone 5 mg-acetaminophen 325 mg tablet RxNorm: 100904 Take 1 Tablet(s) Oral Q4H every four hours as needed for pain PRN for severe acute dental pain 10/21/19 25 025 Inactive penicillin V potassium 500 mg tablet RxNorm: 459982 Take 1 Tablet(s) Oral QID Take until dental appointment per ER recommendation 10/21/19 25 025 Inactive hydrocodone 5 mg-acetaminophen 325 mg tablet RxNorm: 277428 Take 1 Tablet(s) Oral Q4H every four hours as needed for pain PRN for severe acute dental pain 10/21/19 25 025 Inactive penicillin V potassium 500 mg tablet RxNorm: 508164 Take 1 Tablet(s) Oral QID Take until dental appointment per ER recommendation 10/21/19 25 025 Inactive potassium chloride ER 20 mEq tablet,extended release RxNorm: 627362 Take 2 Tablet(s) Oral TID (dx: hypokalemia) 09/14/19 25 026 Active potassium chloride ER 20 mEq tablet,extended release RxNorm: 246228 Take 2 Tablet(s) Oral TID (dx: hypokalemia) 09/14/19 25 025 Inactive loperamide 2 mg tablet RxNorm: 789046 Take 2 Tablet(s) Oral UD as directed [...] Date Active senna 8.6 mg tablet RxNorm: 474449 Take 1 Tablet(s) Oral QD as needed and 1 tab BID prn 09/06/19 No Stop Date Active cyclobenzaprine 10 mg tablet RxNorm: 159224 Take 1 Tablet(s) Oral QHS every night at bedtime as needed 09/06/19 25 No Stop Date Active loperamide 2 mg tablet RxNorm: 753800 Take 2 Tablet(s) Oral UD as directed as needed 2 tabs after first loose stool then 1 tab after each subsequent stool PRN Do not exceed 4 doses in 24 hours. Do not administer until after 3 loose stools. 09/06/19 026 Active pioglitazone 15 mg tablet RxNorm: 648256 Take 1 Tablet(s) Oral QD 09/06/19 No Stop Date Active loperamide 2 mg tablet RxNorm: 601496 Take 2 Tablet(s) Oral UD as directed as needed 2 tabs after first loose stool then 1 tab after each subsequent stool PRN Do not exceed 4 doses in 24 hours. Do not administer until after 3 loose stools. 09/06/19 025 Inactive pregabalin 100 mg capsule RxNorm: 682659 1 CAPSULE BY MOUTH EVERY MORNING (DX: NEUROPATHY) 08/23/19 025 Inactive FACILITY IS REQUESTING REFILL. PRIOR RX HAS BEEN EXHAUSTED. THANK YOU. pregabalin 150 mg capsule RxNorm: 855074 1 CAPSULE BY MOUTH AT BEDTIME (DX: NEUROPATHY) 08/21/19 025 Inactive FACILITY IS REQUESTING A REFILL OF THIS MEDICATION, THANK YOU! senna 8.6 mg tablet RxNorm: 449262 Take 1 Tablet(s) Oral QD as needed for constipation on day 2 of no bowel movement 08/09/19 025 Inactive Miralax 17 gram/dose oral powder RxNorm: 311613 Administer 17 Gram(s) Oral QD as needed for constipation on day 3 of no bowel movement 08/09/19 025 Inactive senna 8.6 mg tablet RxNorm: 896292 Take 1 Tablet(s) Oral QD as needed for constipation on day 2 of no bowel movement 08/09/19 25 025 Inactive Miralax 17 gram/dose oral powder RxNorm: 021024 Administer 17 Gram(s) Oral QD as needed for constipation on day 3 of no bowel movement 08/09/19 25 025 Inactive pregabalin 100 mg capsule RxNorm: 729642 Take 1 Capsule(s) Oral QAM every morning [...] (Concentrated) Insulin 500 unit/mL subcutaneous soln RxNorm: 705418 Inject 100 Unit(s) Subcutaneous AC before meals Three times daily before meals. 07/24/19 25 025 Inactive ammonium lactate 12 % topical cream RxNorm: 428083 Apply 1 Application Topical BID 07/20/19 25 No Stop Date Active ezetimibe 10 mg tablet RxNorm: 289010 Take 1 Tablet(s) Oral QD 07/18/19 25 No Stop Date Active senna 8.6 mg tablet RxNorm: 917315 Take 1 Tablet(s) Oral QD 07/18/19 25 025 Inactive metoprolol succinate ER 200 mg tablet,extended release 24 hr RxNorm: 461378 Take 1 Tablet(s) Oral QD 06/19/19 25 No Stop Date Active pantoprazole 40 mg tablet,delayed release RxNorm: 659024 Take 1 Tablet(s) Oral QAM every morning 06/19/19 25 025 Inactive hydralazine 50 mg tablet RxNorm: 749589 Take 1 Tablet(s) Oral QID 06/19/19 25 No Stop Date Active carbamazepine 200 mg tablet RxNorm: 447039 Take 1 Tablet(s) Oral BID 06/19/19 25 No Stop Date Active amlodipine 10 mg tablet RxNorm: 126834 Take 1 Tablet(s) Oral QD 06/19/19 25 No Stop Date Active Eliquis 5 mg tablet RxNorm: 7966406 Take 1 Tablet(s) Oral BID 06/19/19 25 No Stop Date Active pen needle, diabetic 30 gauge x 3/16 RxNorm: Use 1 6 times per day w/insulin 06/14/19 25 026 Active pen needle, diabetic 30 gauge x 3/16 RxNorm: Use 1 needle 6 times per day w/insulin 06/14/19 25 025 Inactive nystatin 100,000 unit/gram topical powder RxNorm: 201033 Apply 1 Application Topical BID as needed abdominal/breast/ groin folds 01/08 026 Active pregabalin 100 mg capsule RxNorm: 608314 Take 1 Capsule(s) Oral QAM every morning 05/22/19 025 Inactive nystatin 100,000 unit/gram topical powder RxNorm: 951247 Apply 1 Application Topical BID as needed abdominal/breast/ groin folds 04/11/20 024 Inactive chlorthalidone 25 mg tablet RxNorm: 951451 Take 1 Tablet(s) Oral QAM every morning 04/06/20 No Stop Date Active pregabalin 150 mg capsule RxNorm: 421746 Take 1 Capsule(s) Oral QHS every night at bedtime 03/31/20 024 Inactive Vascepa 1 gram capsule RxNorm: 3753139 Take 2 Capsule(s) Oral BID 03/30/20 025 Inactive rosuvastatin 40 mg tablet RxNorm: 091401 1 TAB ORALLY EVERY EVENING (DX:CORONARY ARTERY DISEASE) 03/28/20 No Stop Date Active venlafaxine ER 75 mg capsule,extended release 24 hr RxNorm: 710088 3 CAPS (225MG) ORALLY DAILY (DX: MOOD DISORDER) 03/28/20 No Stop Date Active pregabalin 100 mg capsule RxNorm: 169972 Take 1 Capsule(s) Oral QAM every morning 03/20/20 024 Inactive cholecalciferol (vitamin D3) 1,250 mcg (50,000 unit) capsule RxNorm: 169535 Take 1 Capsule(s) Oral QW once a [...] Insulin 100 unit/mL (3 mL) subcutaneous RxNorm: 3897532 Inject 40 Unit(s) Subcutaneous BID 03/07/20 025 Inactive Please dispense one month supply. Humulin R U-500 (Concentrated) Insulin 500 unit/mL subcutaneous soln RxNorm: 820769 Inject 100 Unit(s) Subcutaneous AC before meals [...] PRN) to be use with new Accu [place] meter 03/04/20 Inactive ok to substitute with any covered alternative test strip FreeStyle [place]ma 2 Sensor kit RxNorm: Use UD as directed 03/02/20 Inactive Pen Needle 30 gauge x 5/16 RxNorm: Pen(s) Use 1 needle as directed TID 03/02/20 Inactive nystatin 100,000 unit/gram topical powder RxNorm: 966400 Apply 1 Application Topical BID as needed [...] (Concentrated) Insulin 500 unit/mL subcutaneous soln RxNorm: 169251 Inject 100 Unit(s) Subcutaneous TID 02/17/20 24 024 Inactive Humulin R U-500 (Concentrated) Insulin 500 unit/mL subcutaneous soln RxNorm: 451804 Inject 100 Unit(s) Subcutaneous TID 02/10/20 24 024 Inactive Basaglar KwikPen U-100 Insulin 100 unit/mL (3 mL) subcutaneous RxNorm: 5902978 Inject 30 Unit(s) Subcutaneous BID 02/10/20 24 024 Inactive Please dispense one month supply. pregabalin 100 mg capsule RxNorm: 206366 Take 1 Capsule(s) Oral QAM every morning 02/07/20 24 024 Inactive isosorbide mononitrate ER 60 mg tablet,extended release 24 hr RxNorm: 069915 Take 1 Tablet(s) Oral QD 02/01/20 24 025 Inactive aripiprazole 15 mg tablet RxNorm: 369714 Take 1/2 Tablet(s) Oral QD 02/01/20 24 025 Inactive torsemide 20 mg tablet RxNorm: 320540 1 TAB ORALLY DAILY (DX: EDEMA) 01/27/20 No Stop Date Active potassium chloride ER 20 mEq tablet,extended release(part/cryst) RxNorm: 6892686 2 TABS (40MEQ) ORALLY TWICE DAILY (DX: HYPOKALEMIA) 01/27/20 24 025 Inactive cephalexin 500 mg capsule RxNorm: 086145 Take 1 Capsule(s) Oral QID 12/17/19 24 024 Inactive cephalexin 500 mg capsule RxNorm: 559362 Take 1 Capsule(s) Oral QID 12/17/19 24 024 Inactive acetaminophen 500 mg tablet RxNorm: 536951 (MAX APAP:4GM/24HR) Take 1 Tablet(s) Oral TID [...] %-0.3 % drops in a dropperette RxNorm: 845806 Apply 1-2 Drop(s) Both eyes BID as needed 09/28/19 24 Inactive erythromycin 5 mg/gram (0.5 %) eye ointment RxNorm: 013065 Apply 1 Application Both eyes QHS every night at bedtime Instill ~1 cm ribbon into affected eye 09/28/19 24 Inactive Artificial Tears (PF) 0.1 %-0.3 % drops in a dropperette RxNorm: 013047 Apply 1-2 Drop(s) Both eyes BID as needed 09/28/19 24 024 Inactive erythromycin 5 mg/gram (0.5 %) eye ointment RxNorm: 459592 Apply 1 Application Both eyes QHS every night at bedtime Instill ~1 cm ribbon into affected eye 09/28/19 24 024 Inactive acetaminophen 500 mg tablet RxNorm: 648366 (MAX APAP:4GM/24HR) Take 1 Tablet(s) Oral TID as needed for pain 09/24/19 24 024 Inactive carvedilol 25 mg tablet RxNorm: 327508 Take 1 Tablet(s) Oral QD 09/08/19 24 No Stop Date Active pregabalin 100 mg capsule RxNorm: 828967 Take 1 Capsule(s) Oral QAM every morning 09/07/19 24 024 Inactive bisacodyl 10 mg rectal suppository RxNorm: 204377 Insert 1 Suppository Rectal QD as needed 07/13/19 24 No Stop Date Active ketoconazole 2 % shampoo RxNorm: 605317 Apply 1 Application Topical UD as directed 07/13/19 24 No Stop Date Active Ozempic 1 mg/dose (4 mg/3 mL) subcutaneous pen injector RxNorm: 6402856 Inject 1 Milligram(s) Subcutaneous QW once a week 07/13/19 24 No Stop Date Active Guaifenesin AC 10 mg-100 mg/5 mL oral liquid RxNorm: 615953 Take 10 Milliliter(s) Oral Q4H every four hours as needed 07/13/19 24 No Stop Date Active hydrocortisone 2.5 % topical cream RxNorm: 572590 Apply 1 Application Topical BID as needed 07/13/19 24 No Stop Date Active rosuvastatin 40 mg tablet RxNorm: 307636 Take 1 Tablet(s) Oral QPM every evening 07/13/19 24 024 Inactive ezetimibe 10 mg tablet RxNorm: 124162 Take 1 Tablet(s) Oral QD 07/13/19 24 025 Inactive polyethylene glycol 3350 17 gram/dose oral powder RxNorm: 707141 Take 17 Gram(s) Oral BID as needed mix in 4-8ox water 07/13/19 24 025 Inactive aripiprazole 15 mg tablet RxNorm: 799392 Take 1/2 Tablet(s) Oral QD 07/13/19 24 024 Inactive isosorbide mononitrate ER 60 mg tablet,extended release 24 hr RxNorm: 894511 Take 1 Tablet(s) Oral QD 07/13/19 24 024 Inactive ammonium lactate 12 % topical cream RxNorm: 669660 Apply 1 Application Topical BID 07/13/19 24 025 Inactive rosuvastatin 20 mg sprinkle capsule RxNorm: 7250786 Take 1 Capsule(s) Oral QD 07/13/19 24 025 Inactive Vascepa 1 gram capsule RxNorm: 5248319 Take 2 Capsule(s) Oral BID 07/13/19 24 024 Inactive venlafaxine ER 75 mg capsule,extended release 24 hr RxNorm: 952064 Take 3 Capsule(s) Oral QD 07/13/19 24 024 Inactive Basaglar KwikPen U-100 Insulin 100 unit/mL (3 mL) subcutaneous RxNorm: 7673737 Inject 30U SubQ twice daily 07/07/19 24 024 Inactive Please dispense one month supply. Basaglar KwikPen U-100 Insulin 100 unit/mL (3 mL) subcutaneous RxNorm: 7461711 Inject 30U SubQ twice daily 07/07/19 24 024 Inactive Please dispense one month supply. pregabalin 150 mg capsule RxNorm: 081329 Take 1 Capsule(s) Oral QHS every night at bedtime 07/05/19 24 024 Inactive pregabalin 150 mg capsule RxNorm: 944450 Take 1 Capsule(s) Oral QHS every night at bedtime 07/05/19 24 024 Inactive polyethylene glycol 3350 17 gram/dose oral powder RxNorm: 847744 Take 1 Packet Oral QD as needed (1 packet = 17g) mix with 4-8oz of liquid 06/15/19 24 024 Inactive bisacodyl 10 mg rectal suppository RxNorm: 465537 Insert one suppository per rectum once daily as needed for constipation 06/15/19 24 024 Inactive bisacodyl 10 mg rectal suppository RxNorm: 096854 Insert one suppository per rectum once daily as needed for constipation 06/15/19 24 024 Inactive pregabalin 100 mg capsule RxNorm: 124263 Take 1 Capsule(s) Oral QAM every morning 04/27/20 23 024 Inactive Levemir FlexPen 100 unit/mL (3 mL) solution subcutaneous insulin pen RxNorm: 728501 Inject 30 Unit(s) Subcutaneous BID 04/27/20 23 024 Inactive rosuvastatin 40 mg tablet RxNorm: 931386 Take 1 Tablet(s) Oral QPM every evening 04/16/20 23 024 Inactive D/C rosuvastatin 20mg venlafaxine ER 75 mg capsule,extended release 24 hr RxNorm: 566964 Take 3 Capsule(s) Oral QD 04/14/20 23 023 Inactive pregabalin 100 mg capsule RxNorm: 933327 Take 1 Capsule(s) Oral QAM every morning [...] strip clotrimazole 1 % topical cream RxNorm: 184693 Take apply topically to abdominal folds twice daily for 14 days 03/12/20 23 024 Inactive Ozempic 1 mg/dose (4 mg/3 mL) subcutaneous pen injector RxNorm: 3809584 Inject 1 Milligram(s) Subcutaneous QW once a week 03/11/20 23 023 Inactive rosuvastatin 20 mg tablet RxNorm: 527573 Take 1 Tablet(s) Oral QD 02/26/20 23 023 Inactive d/c pravastatin 80mg Ozempic 1 mg/dose (4 mg/3 mL) subcutaneous pen injector RxNorm: 4410328 Inject 1 Milligram(s) Subcutaneous QW once a week 02/20/20 23 023 Inactive pregabalin 150 mg capsule RxNorm: 837411 Take 1 Capsule(s) Oral HS at bed time 02/19/20 23 023 Inactive pregabalin 100 mg capsule RxNorm: 691949 Take 1 Capsule(s) Oral QAM every morning 02/18/20 23 023 Inactive venlafaxine ER 75 mg capsule,extended release 24 hr RxNorm: 876108 Take 3 Capsule(s) Oral QD 02/04/20 23 023 Inactive FreeStyle Chema 2 Sensor kit RxNorm: use as directed 02/04/20 23 023 Inactive FreeStyle Chema 2 Sensor kit RxNorm: use as directed 02/04/20 024 Inactive fluconazole 150 mg tablet RxNorm: 409252 Take 1 Tablet(s) Oral on day 3 and on day 6 02/03/20 024 Inactive venlafaxine ER 150 mg capsule,extended release 24 hr RxNorm: 641227 Take 1 Capsule(s) Oral QD 02/03/20 023 Inactive chlorthalidone 25 mg tablet RxNorm: 453945 Take 1 Tablet(s) Oral QAM every morning 02/03/20 024 Inactive acetaminophen 500 mg tablet RxNorm: 963426 1 TABLET ORALLY 3 TIMES DAILY (MAX APAP:4GM/24HR) 12/15/19 023 Inactive potassium chloride ER 20 mEq tablet,extended release RxNorm: 175072 Take 1 Tablet(s) Oral BID 12/09/19 024 Inactive d/c 20mEq once daily (sent from hospital) clotrimazole 1 % topical cream RxNorm: 789003 apply 1g topically to top of feet and in between toes BID 12/09/19 23 025 Inactive nystatin 100,000 unit/gram topical powder RxNorm: 001768 APPLY TO AFFECTED AREAS TOPICALLY 2 TIMES DAILY 11/21/19 23 023 Inactive Nystop 100,000 unit/gram topical powder RxNorm: 658253 Apply to abd folds, under breasts and L side of groin Topical BID x 14 days, then BID PRN 11/20/19 23 023 Inactive dx: yeast dermatitis Bengay Ultra Strength 4 %-30 %-10 % topical cream RxNorm: 616211 Apply 1 Gram(s) Topical QID PRN to feet and legs for neuropathic pain 11/11/19 23 024 Inactive hydrocortisone 2.5 % topical cream RxNorm: 862471 Apply 1/2 Gram(s) Topical BID as needed 11/10/19 23 024 Inactive clotrimazole 1 % topical cream RxNorm: 779227 Apply 1/2 Gram(s) Topical BID Apply to affected areas of groin, periarea, and abdominal topically 2 times daily 11/10/19 23 025 Inactive Levemir FlexPen 100 unit/mL (3 mL) solution subcutaneous insulin pen RxNorm: 102234 Inject 30 Unit(s) Subcutaneous BID 10/07/19 23 023 Inactive Humulin R U-500 (Concentrated) Insulin 500 unit/mL subcutaneous soln RxNorm: 239498 Inject 100 Unit(s) Subcutaneous TID 10/07/19 23 024 Inactive Ozempic 0.25 mg or 0.5 mg (2 mg/3 mL) subcutaneous pen injector RxNorm: 2578912 Inject 1/2 Milligram(s) Subcutaneous QW once a week 10/07/19 23 024 Inactive aripiprazole 15 mg tablet RxNorm: 704340 1/2 TAB (7.5MG) ORALLY DAILY (DX:MAJOR DEPRESSIVE DISORDER) 09/23/19 23 023 Inactive Accu-Chek Guide test strips RxNorm: Use 1 Test Strip QID 09/15/19 23 023 Inactive ok to substitute with any covered alternative test strip Lancets,Thin 28 gauge RxNorm: Use 1 as directed QID 09/15/19 23 023 Inactive torsemide 20 mg tablet RxNorm: 378072 Take 1 Tablet(s) Oral BID 09/09/19 024 Inactive d/c once daily dosing carvedilol 25 mg tablet RxNorm: 101448 Take 1 Tablet(s) Oral QD 08/25/19 23 024 Inactive pregabalin 150 mg capsule RxNorm: 635075 1 Capsule(s) Oral HS at bed time 08/18/19 23 023 Inactive pregabalin 100 mg capsule RxNorm: 338695 1 Capsule(s) Oral QAM every morning 08/18/19 23 023 Inactive carvedilol 25 mg tablet RxNorm: 868321 1 Tablet(s) Oral QD 07/28/19 23 023 Inactive lisinopril 20 mg tablet RxNorm: 532604 Give 1 Tablet(s) Oral QD 07/28/19 23 023 Inactive Lyrica 150 mg capsule RxNorm: 637657 Take 1 Capsule(s) Oral QHS every night at bedtime 07/19/19 23 023 Inactive d/c 100mg dose Diflucan 150 mg tablet RxNorm: 975857 Take 1 Tablet(s) Oral QD repeat on day 3 and 6 07/19/19 23 023 Inactive pregabalin 100 mg capsule RxNorm: 597400 Take 1 Capsule(s) Oral QAM every morning 07/19/19 23 023 Inactive gatifloxacin 0.5 % eye drops RxNorm: 587931 Instill 1 Drop(s) as directed TID Instill 1 drop in to affected eye(s) starting 1 day prior to surgery and continue until gone (do not exceed 4 weeks). 07/13/19 23 023 Inactive carvedilol 25 mg tablet RxNorm: 086767 2 Tablet(s) Oral BID 07/13/19 23 023 Inactive Humulin R Regular U-100 Insulin 100 unit/mL injection solution RxNorm: 876936 85 Unit(s) Injection TID 07/13/19 23 023 Inactive ketorolac 0.5 % eye drops RxNorm: 211986 Instill 1 Drop(s) as directed QID Instill 1 drop into affected eye(s) 4 times daily starting 1 day prior to surgery and continue until gone (do not exceed 4 weeks). 07/13/19 23 023 Inactive Diflucan 150 mg tablet RxNorm: 386671 Take 1 Tablet(s) Oral QD repeat on day 3 and 6 06/30/19 23 023 Inactive Accu-Chek Guide test strips RxNorm: Use 1 Test Strip QID Use 1 test strip to monitor blood glucose 4 times daily and as needed. Dx:E11.42. 06/23/19 23 023 Inactive ok to substitute with any covered alternative test strip dextromethorphan-gu aifenesin 10 mg-100 mg/5 mL oral liquid RxNorm: 856675 Take 10 Milliliter(s) Oral every 4 hours as needed for cough 06/19/19 23 023 Inactive dextromethorphan-gu aifenesin 10 mg-100 mg/5 mL oral liquid RxNorm: 455590 Take 10 Milliliter(s) Oral every 4 hours as needed for cough 06/19/19 023 Inactive Lyrica 150 mg capsule RxNorm: 213797 Take 1 Capsule(s) Oral QHS every night at bedtime 06/18/19 023 Inactive d/c 100mg dose aripiprazole 15 mg tablet RxNorm: 089536 /2 TAB (7.5MG) ORALLY DAILY (DX:MAJOR DEPRESSIVE DISORDER) 06/05/19 023 Inactive pregabalin 100 mg capsule RxNorm: 997296 1 Capsule(s) Oral QAM every morning 06/02/19 023 Inactive Banophen 50 mg capsule RxNorm: 9292915 Take 1 Capsule(s) Oral Q6H every 6 hours as needed 05/19/19 No Stop Date Active Novolog Flexpen U-100 Insulin aspart 100 unit/mL (3 mL) subcutaneous RxNorm: 2249580 Inject 10 Unit(s) Subcutaneous QHS every night at bedtime with nighttime snack 04/08/20 022 Inactive Novolog Flexpen U-100 Insulin aspart 100 unit/mL (3 mL) subcutaneous RxNorm: 3451946 Inject 42 Unit(s) Subcutaneous TID in addition to sliding scale 04/08/20 022 Inactive d/c 36u albuterol sulfate HFA 90 mcg/actuation aerosol inhaler RxNorm: 8830990 Take 2 Puff(s) Inhalation Q4H every four hours as needed as needed for SOB, cough, or wheezing 04/07/20 030 Active Banophen 50 mg capsule RxNorm: 1799505 Take 1 Capsule(s) Oral Q6H every 6 hours as needed 04/06/20 023 Inactive diphenhydramine 50 mg tablet RxNorm: 2071131 Take 1 Tablet(s) Oral Q6H every 6 hours as needed 04/06/20 022 Inactive diphenhydramine 50 mg tablet RxNorm: 3573641 1 Tablet(s) Oral Q6H every 6 hours as needed 04/06/20 022 Inactive Abilify 15 mg tablet RxNorm: 407119 1/2 Tablet(s) Oral QD 03/10/20 22 023 Inactive Shingrix (PF) 50 mcg/0.5 mL intramuscular suspension, kit RxNorm: 1048298 Administer 1/2 Milliliter(s) Intramuscular QD one time shingrix step 2 ( step 1 given 11/04/21) WITH needle - Nursing please administer upon arrival and once administered post a bridge message with date of administration, senior training specialist, expiration date, and lot# so we can update [facility] 02/18/20 22 022 Inactive dispense with needle Shingrix (PF) 50 mcg/0.5 mL intramuscular suspension, kit RxNorm: 8829839 Administer 1/2 Milliliter(s) Intramuscular QD one time shingrix step 2 ( step 1 given 11/04/21) WITH needle - Nursing please administer upon arrival and once administered post a bridge message with date of administration, senior training specialist, expiration date, and lot# so we can update [facility] 02/18/20 22 022 Inactive dispense with needle Lyrica 100 mg capsule RxNorm: 163060 Take 1 Capsule(s) Oral QAM every morning 01/08/20 22 022 Inactive d/c 50mg dose acetaminophen 500 mg tablet RxNorm: 879272 Take 1 Tablet(s) Oral TID 01/08/20 22 022 Inactive d/c PRN order Lyrica 150 mg capsule RxNorm: 190624 Take 1 Capsule(s) Oral QHS every night at bedtime 01/08/20 22 023 Inactive d/c 100mg dose polyethylene glycol 3350 17 gram/dose oral powder RxNorm: 991459 Take 17=1 capful Gram(s) Oral QD mix with 4-8oz of liquid 01/08/20 22 025 Inactive take this in addition to BID prn order Abilify 5 mg tablet RxNorm: 243201 Take 1 Tablet(s) Oral QD take 1 tab po QD #30 refill 5 dx: MDD 12/12/19 22 022 Inactive Abilify 5 mg tablet RxNorm: 023691 Take 1 Tablet(s) Oral QD take 1 tab po QD #30 refill 5 dx: MDD 12/12/19 22 022 Inactive Novolog Flexpen U-100 Insulin aspart 100 unit/mL (3 mL) subcutaneous RxNorm: 5364963 Inject 42 Unit(s) Subcutaneous TID in addition to sliding scale 12/10/19 22 022 Inactive d/c 36u chlorthalidone 25 mg tablet RxNorm: 749997 Take 1 Tablet(s) Oral QAM every morning 12/10/19 22 023 Inactive pregabalin 50 mg capsule RxNorm: 586815 Take 1 Capsule(s) Oral QAM every morning 11/12/19 22 022 Inactive tetanus-diphtheria toxoids-Td 2 Lf unit-2 Lf unit/0.5 mL IM suspension RxNorm: 139 Take 0.5 Miscellaneous Intramuscular 11/12/19 22 022 Inactive need tdap - nursing to administer upon arrival pregabalin 50 mg capsule RxNorm: 478810 Take 1 Capsule(s) Oral QAM every morning 10/16/19 022 Inactive pregabalin 50 mg capsule RxNorm: 679560 Take 1 Capsule(s) Oral QAM every morning 10/16/19 22 022 Inactive pregabalin 50 mg capsule RxNorm: 856417 1 Capsule(s) Oral QAM every morning 10/15/19 22 022 Inactive Shingrix (PF) 50 mcg/0.5 mL intramuscular suspension, kit RxNorm: 5937803 Administer 1/2 Milliliter(s) Intramuscular one time Nursing please administer upon arrival and once administered post a bridge message with date of administration, senior training specialist, expiration date, and lot# so we can update [facility]. 10/09/19 22 022 Inactive shingrix step 1 Shingrix (PF) 50 mcg/0.5 mL intramuscular suspension, kit RxNorm: 2737560 Administer 1/2 Milliliter(s) Intramuscular one time Nursing please administer upon arrival and once administered post a bridge message with date of administration, senior training specialist, expiration date, and lot# so we [...] aspart 100 unit/mL (3 mL) subcutaneous RxNorm: 8366525 Inject 10 Unit(s) Subcutaneous QHS every night at bedtime with nighttime snack 10/08/19 22 Inactive Shingrix (PF) 50 mcg/0.5 mL intramuscular suspension, kit RxNorm: 7132788 ADMINISTER 2-DOSE SERIES PER CDC GUIDELINES 10/08/19 22 Active Shingrix (PF) 50 mcg/0.5 mL intramuscular suspension, kit RxNorm: 4665209 ADMINISTER 2-DOSE SERIES PER CDC GUIDELINES 10/08/19 22 Inactive Novolog Flexpen U-100 Insulin aspart 100 unit/mL (3 mL) subcutaneous RxNorm: 5624367 Inject 36 Unit(s) Subcutaneous TID in addition to sliding scale 10/08/19 22 Inactive cholecalciferol (vitamin D3) 1,250 mcg (50,000 unit) capsule RxNorm: 854967 Take 1 Capsule(s) Oral QW once a week 10/08/19 Inactive Novofine Autocover 30 gauge x 1/3 needle RxNorm: Use 1 Miscellaneous UD as directed Use 1 needle as directed to administer insulin 5 times a day Dx:E11.42. 10/03/19 Inactive ok to substitute with any covered alternative pen needle benzoyl peroxide 10 % topical cleanser RxNorm: 532809 Apply 1 Application Topical QD apply to face, wash rinse and dry once daily (may change to QOD if drying) 08/19/19 22 022 Inactive (%covered by insurance) #60ml refill 11 dx: acne benzoyl peroxide 10 % topical cleanser RxNorm: 795273 Apply 1 Application Topical QD apply to face, wash rinse and dry once daily (may change to QOD if drying) 08/19/19 22 022 Inactive (%covered by insurance) #60ml refill 11 dx: acne benzoyl peroxide 10 % topical cleanser RxNorm: 969454 Apply 1 Application Topical QD apply to face, wash rinse and dry once daily (may change to QOD if drying) 08/19/19 22 022 Inactive (%covered by insurance) #60ml refill 11 dx: acne Lyrica 50 mg capsule RxNorm: 818368 Take 1 Capsule(s) Oral QAM every morning Take 1 capsule by mouth once daily 08/19/19 22 022 Inactive benzoyl peroxide 10 % topical cleanser RxNorm: 110623 Apply 1 Application Topical QD apply to face, wash rinse and dry once daily (may change to QOD if drying) 08/19/19 22 022 Inactive (%covered by insurance) #60ml refill 11 dx: acne Lyrica 100 mg capsule RxNorm: 642752 Take 1 Capsule(s) Oral QHS every night at bedtime Take 1 capsule by mouth once daily at bedtime 08/19/19 22 Inactive Lyrica 100 mg capsule RxNorm: 708465 Take 1 Capsule(s) Oral QHS every night at bedtime Take 1 capsule by mouth once daily at bedtime 08/16/19 22 Inactive Lyrica 50 mg capsule RxNorm: 204910 Take 1 Capsule(s) Oral QAM every morning Take 1 capsule by mouth once daily 08/16/19 22 Inactive Levemir FlexTouch U-100 Insulin 100 unit/mL (3 mL) subcutaneous pen RxNorm: 877912 Inject 86 Unit(s) Subcutaneous BID 08/05/19 22 Inactive d/c 83units BID Lyrica 100 mg capsule RxNorm: 314446 Take 1 Capsule(s) Oral QHS every night at bedtime Take 1 capsule by mouth once daily at bedtime 07/14/19 22 022 Inactive Lyrica 50 mg capsule RxNorm: 941128 Take 1 Capsule(s) Oral QAM every morning Take 1 capsule by mouth once daily 07/14/19 22 Inactive Levemir FlexTouch U-100 Insulin 100 unit/mL (3 mL) subcutaneous pen RxNorm: 386533 Inject 83 Unit(s) Subcutaneous BID 07/08/19 22 [...] test strip hydralazine 50 mg tablet RxNorm: 374677 Take 1 Tablet(s) Oral QID 05/05/20 21 Inactive venlafaxine ER 225 mg tablet,extended release 24 hr RxNorm: 215958 Take 1 Tablet(s) Oral QD 05/05/20 21 Inactive venlafaxine ER 225 mg tablet,extended release 24 hr RxNorm: 826167 Take 1 Tablet(s) Oral QD 05/05/20 022 Inactive isosorbide mononitrate ER 30 mg tablet,extended release 24 hr RxNorm: 105251 Take 1 Tablet(s) Oral QD 05/05/20 024 Inactive hydralazine 50 mg tablet RxNorm: 181273 Take 1 Tablet(s) Oral QID 05/05/20 21 021 Inactive aspirin 81 mg tablet,delayed release RxNorm: 327080 Take 1 Tablet(s) Oral QD 03/31/20 Inactive Vitamin D2 1,250 mcg (50,000 unit) capsule RxNorm: 5830099 Take 1 Capsule(s) Oral QW once a week x 12 weeks 03/31/20 Inactive Vitamin D2 1,250 mcg (50,000 unit) capsule RxNorm: 6391849 Take 1 Capsule(s) Oral QW once a week 03/31/20 Inactive Zetia 10 mg tablet RxNorm: 072596 Take 1 Tablet(s) Oral QD 03/31/20 024 Inactive Zetia 10 mg tablet RxNorm: 628112 Take 1 Tablet(s) Oral QD 03/31/20 021 Inactive hydralazine 25 mg tablet RxNorm: 321441 Take 1 Tablet(s) Oral QID 03/31/20 21 021 Inactive hydralazine 25 mg tablet RxNorm: 546146 Take 1 Tablet(s) Oral QID 03/31/20 021 Inactive hydralazine 10 mg tablet RxNorm: 659969 Take 1 Tablet(s) Oral QID 03/03/20 21 021 Inactive cephalexin 500 mg tablet RxNorm: 451859 Take 1 Tablet(s) Oral QID 02/27/20 021 Inactive cephalexin 500 mg tablet RxNorm: 720973 Take 1 Tablet(s) Oral QID 02/27/20 21 021 Inactive lisinopril 40 mg tablet RxNorm: 575436 Take 1 Tablet(s) Oral QD 02/11/20 21 023 Inactive Eliquis 5 mg tablet RxNorm: 3342539 Take 1 Tablet(s) Oral BID 01/05/20 21 025 Inactive Eliquis 5 mg tablet RxNorm: 2585757 Take 2 Tablet(s) Oral QD 01/01/20 21 021 Inactive Lyrica 50 mg capsule RxNorm: 688001 Take 1 Capsule(s) Oral QAM every morning 12/24/19 21 021 Inactive Lyrica 100 mg capsule RxNorm: 488605 Take 1 Capsule(s) Oral QHS every night at bedtime 12/24/19 021 Inactive clotrimazole 1 % topical cream RxNorm: 940014 Apply to right foot and toes Topical BID 12/04/19 21 023 Inactive metoprolol succinate ER 200 mg tablet,extended release 24 hr RxNorm: 746878 Take 1 Tablet(s) Oral QD 12/04/19 21 023 Inactive ciprofloxacin 500 mg tablet RxNorm: 536371 Take 1 Tablet(s) Oral QD 11/30/19 21 021 Inactive DX ofloxacin otic drops Accu-Chek Guide test strips RxNorm: USE 1 TO CHECK GLUCOSE 4 TIMES DAILY AND NEEDED 11/15/19 21 023 Inactive Blood Glucose Test strips RxNorm: Use 1 Test Strip QID at PRN 11/05/19 21 023 Inactive E11.42 lisinopril 30 mg tablet RxNorm: 174420 Take 1 Tablet(s) Oral QD 10/30/19 021 Inactive lisinopril 20 mg tablet RxNorm: 522074 Take 1 Tablet(s) Oral QD 10/23/19 21 021 Inactive lisinopril 20 mg tablet RxNorm: 889440 Take 1 Tablet(s) Oral QD 10/23/19 21 021 Inactive lisinopril 10 mg tablet RxNorm: 593654 Take 1 Tablet(s) Oral QD 10/02/19 21 021 Inactive icosapent ethyl 1 gram capsule RxNorm: 7291028 Take 2 Capsule(s) (2 gm) Oral BID with meals 09/12/19 024 Inactive Okay to dispense one 2gm tab if you have that available. icosapent ethyl 1 gram capsule RxNorm: 1724615 Take 2 Capsule(s) Oral BID 09/12/19 21 021 Inactive Okay to dispense one 2gm tab if you have that available. amlodipine 10 mg tablet RxNorm: 375922 Take 1 Tablet(s) Oral QD 09/04/19 21 021 Inactive aspirin 81 mg tablet,delayed release RxNorm: 270812 Take 1 Tablet(s) Oral QD 09/04/19 21 021 Inactive Levemir FlexTouch U-100 Insulin 100 unit/mL (3 mL) subcutaneous pen RxNorm: 793176 Inject 150 Unit(s) Subcutaneous BID 09/04/19 21 022 Inactive venlafaxine ER 150 mg tablet,extended release 24 hr RxNorm: 304578 Take 1 Tablet(s) Oral QD 09/04/19 21 021 Inactive clotrimazole-betame thasone 1 %-0.05 % topical cream RxNorm: 116588 Apply to rash on red area on left abdomen/chest Topical BID 08/10/19 21 021 Inactive amlodipine 5 mg tablet RxNorm: 959228 Take 1 Tablet(s) Oral QD 07/31/19 21 021 Inactive cephalexin 500 mg tablet RxNorm: 764817 Take 1 Tablet(s) Oral BID BID - Twice Daily 07/31/19 21 021 Inactive Start 08/01/20 pantoprazole 40 mg tablet,delayed release RxNorm: 199628 Take 1 Tablet(s) Oral QAM every morning 07/08/19 21 025 Inactive clopidogrel 75 mg tablet RxNorm: 058449 Take 1 Tablet(s) Oral QD 07/08/19 21 021 Inactive Blood Glucose Test strips RxNorm: Use 1 Test Strip QID at PRN 07/08/19 021 Inactive E11.42 senna 8.6 mg tablet RxNorm: 468356 Take 1 Tablet(s) Oral QD 07/08/19 025 Inactive Novolog Flexpen U-100 Insulin aspart 100 unit/mL (3 mL) subcutaneous RxNorm: 4139351 Administer per sliding scale Milliliter(s) Subcutaneous TID 151-200: 10 u; 201-250: 20 u; 251-300: 30 u; 301-350: 40 u; 351-400: 50 u. 07/08/19 022 Inactive lisinopril 5 mg tablet RxNorm: 209971 Take 1 Tablet(s) Oral QD 07/08/19 021 Inactive Novolog Flexpen U-100 Insulin aspart 100 unit/mL (3 mL) subcutaneous RxNorm: 5884925 Inject 85 Unit(s) Subcutaneous TID 07/08/19 022 Inactive pravastatin 80 mg tablet RxNorm: 009033 Take 1 Tablet(s) Oral QHS every night at bedtime 07/08/19 023 Inactive clotrimazole 1 % topical cream RxNorm: 086124 Apply to bilateral groin areas Topical BID 07/08/19 022 Inactive metoprolol succinate ER 200 mg tablet,extended release 24 hr RxNorm: 781944 Take 1 Tablet(s) Oral QD 07/08/19 021 Inactive Vitamin D3 25 mcg (1,000 unit) tablet RxNorm: 278043 Take 1 Tablet(s) Oral QD 07/08/19 021 Inactive isosorbide dinitrate 30 mg tablet RxNorm: 652509 Take 1 Tablet(s) Oral QD 07/08/19 21 021 Inactive carbamazepine 200 mg tablet RxNorm: 702693 Take 1 Tablet(s) Oral BID 07/08/19 025 Inactive Levemir FlexTouch U-100 Insulin 100 unit/mL (3 mL) subcutaneous pen RxNorm: 349363 Inject 140 Unit(s) Subcutaneous BID 07/08/19 021 Inactive torsemide 20 mg tablet RxNorm: 194321 Take 1 Tablet(s) Oral QD 07/08/19 21 023 Inactive venlafaxine 75 mg tablet RxNorm: 196950 Take 1 Tablet(s) Oral QD 07/08/19 21 021 Inactive acetaminophen 500 mg tablet RxNorm: 958217 Take 1 Tablet(s) Oral TID as needed for headache 06/18/19 21 021 Inactive acetaminophen 500 mg tablet RxNorm: 920295 Take 1 Tablet(s) Oral TID as needed for headache 06/18/19 21 021 Inactive Lyrica 100 mg capsule RxNorm: 692867 Take 1 Capsule(s) Oral QHS every night at bedtime 06/11/19 21 021 Inactive Lyrica 50 mg capsule RxNorm: 438294 Take 1 Capsule(s) Oral QAM every morning 06/10/19 21 021 Inactive hydrocortisone 2.5 % topical cream RxNorm: 565227 Apply to bilateral groin creases Topical BID 05/15/20 20 021 Inactive clotrimazole 1 % topical cream RxNorm: 563554 Apply to bilateral groin areas Topical BID 05/15/20 20 021 Inactive Lyrica 50 mg capsule RxNorm: 509359 Take 1 Capsule(s) Oral QAM every morning 05/14/20 20 020 Inactive Lyrica 100 mg capsule RxNorm: 775407 Take 1 Capsule(s) Oral QHS every night [...] Inactive Nystop 100,000 unit/gram topical powder RxNorm: 766198 Apply to abd folds, under breasts and L side of groin Topical BID x 14 days, then BID PRN 04/08/20 20 Inactive dx: yeast dermatitis Lyrica 100 mg capsule RxNorm: 107644 Take 1 Capsule(s) Oral QHS every night at bedtime 03/13/20 20 Inactive Lyrica 50 mg capsule RxNorm: 295635 Take 1 Capsule(s) Oral QAM every morning 03/13/20 20 Inactive ketoconazole 2 % shampoo RxNorm: 295125 Apply Topical two times a week with showers 03/11/20 20 024 Inactive cholecalciferol (vitamin D3) 50 mcg (2,000 unit) tablet RxNorm: 313072 Take 1 Tablet(s) Oral QD 03/11/20 20 021 Inactive Zetia 10 mg tablet RxNorm: 661133 Take 1 Tablet(s) Oral QD 03/07/20 20 021 Inactive Zetia 10 mg tablet RxNorm: 008862 Take 1 Tablet(s) Oral QD 03/07/20 20 020 Inactive Lyrica 50 mg capsule RxNorm: 792336 Take 1 Capsule(s) Oral QAM every morning 02/15/20 20 Inactive Lyrica 100 mg capsule RxNorm: 649348 Take 1 Capsule(s) Oral QHS every night at bedtime 02/15/20 20 Inactive Lyrica 100 mg capsule RxNorm: 067643 Take 1 Capsule(s) Oral QHS every night at bedtime 02/15/20 20 Inactive Lyrica 50 mg capsule RxNorm: 944623 Take 1 Capsule(s) Oral QAM every morning 02/15/20 20 Inactive venlafaxine ER 75 mg capsule,extended release 24 hr RxNorm: 124015 Take 3 Capsule(s) Oral QD 06/12/19 22 023 Inactive polyethylene glycol 3350 17 gram/dose oral powder RxNorm: 145420 Take 17=1 capful Gram(s) Oral BID as needed mix with 4-8oz of liquid 06/12/19 22 024 Inactive icosapent ethyl 1 gram capsule RxNorm: 7206776 Take 2 Capsule(s) (2 gm) Oral BID with meals 10/07/19 23 023 Inactive Okay to dispense one 2gm tab if you have that available. Levemir FlexTouch U-100 Insulin 100 unit/mL (3 mL) subcutaneous pen RxNorm: 014346 Inject 80 Unit(s) Subcutaneous BID 07/14/19 23 023 Inactive metoprolol succinate ER 200 mg tablet,extended release 24 hr RxNorm: 567148 Take 1 Tablet(s) Oral QD 08/12/19 025 Inactive loperamide 2 mg capsule RxNorm: 933874 Take 1 Capsule(s) Oral QID as needed 09/06/19 025 Inactive hydralazine 50 mg tablet RxNorm: 993653 Take 1 Tablet(s) Oral QID 08/12/19 025 Inactive Soft Touch Lancets RxNorm: miscellaneous 03/04/20 24 025 Inactive Novolog Flexpen U-100 Insulin aspart 100 unit/mL (3 mL) subcutaneous RxNorm: 8723525 Insert 30 Unit(s) Subcutaneous TID with meals [...] Status Date Patient Education: Patient Medication Summary Wymfgnirh99/26/2025ppointment: Harrison Munson WPtel: [address] [facility] 300 [id number] USF/U001/09/2025Referral: [facility] Radiology/Imaging WPtel: [address] [place], [place] [id number] USReferralNo Records Xogiuehy39/06/2025ppointment: Harrison Munson WPtel: [address] [facility] 300 [id number] USF/U008/08/2024ppointment: Dianne Munsonzie WPtel: [address] [facility] 300 [id number] USF/07/11/2024Referral: [facility] [place]/Endocrinology WPtel: [address] [facility] 3 [id number] USReferralNo Records Uktvatzu57/24/2025ppointment: Dianne Munsonzie WPtel: [address] [place] [address] 300 [id number] [facility]08/2024ppointment: Dianne Munsonzie WPtel: [address] [place] [address] 300 [id number] USF/01/11/2024ppointment: Sandra Clark WPtel: [address] [place] [address] 300 [id number] [facility] Psych Follow Up12/09/2022ppointment: Rosalina Shirley WPtel: [address] [place] [address] 300 [id number] [facility]10/26/2022Referral: [facility] WPtel: [address], [address] [id number] USReferralRecords Gwdwtjmd74/08/2023ppointment: Rosalina Shirley WPtel: [address] [facility] 300 [id number] USF/U008/11/2022ppointment: Rosalina Shirley WPtel: [address] [place] [address] 300 [id number] USF/07/14/2022ppointment: Rosalina Shirley WPtel: [address] [place] [address] 300 [id number] USF/U02Referral: [facility] WPtel: [address] [facility] [address] [id number] KYLpwlmkwaHqouqdoyn43/12/2022Referral: General CardiologyReferralCompleted 1Referral: General PsychologistReferralClosedReferral: General PsychiatristReferralPatient/Family Scheduling AppointmentReferral: [facility] WPtel: [id number] USReferralFacility Scheduling AppointmentReferral: General Physical Medicine [...] extremity edema Active 01/11/2024 (E11.22-250.40) 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
[2025-04-29 09:12] LABS: Albumin* 4.2 g/dL (3.3-5.0); Chloride* 101 mmol/L (96-114); Potassium* 4.6 mmol/L (3.6-5.1); Sodium* 137 mmol/L (135-149)
--- OUTSIDE RECORDS SUMMARY | 2025-04-29 09:12 | XMS_ITS | CCD ---
Author Organization Unknown Care Team Providers Care Team Supervisor Name Role Phone Harrison Durham Primary Care Provider Leona vailable Unavailable Chronic Care Management Unavaila ble Summary Purpose DataExchange Insurance Providers Payer name Policy type / Coverage type Covered green party ID Effective Begin Date Effective End Date [place] [id number] Unknown Unknown [place] Medicare Part B [id number] Unknown Unknown Family history Sister Brittany Suggs [...] on file 07/11/[address]: 245627259 Never smoker 01/16 Sexually Active? Unknown No [...] Unknown Alf 09/03/[address]: 673462100 No Alcohol Consum ption 09/02/2020 Allergies, Adverse Reactions, Alerts Substance Reaction Codes Entered Date Inactivated Date Status * NO KNOWN FOOD ALLERGIES Uizhneh7507/13/2023No Inactive DateActiveLISINOPRILRxNorm: 915123202/12/2020No Inactive DateActiveMetformin DGeAugjbzn91/28/2020No Inactive DateActive* NO KNOWN ENVIRONMENTAL RLJHZIEWUZuopjym16/27/2024No Inactive DateActive Past Medical History Illness Codes Condition Status Onset Date Resolved Date Coronary artery disease invo lving king [place] coronary artery of king [place] heart, angina presence unspecified ICD-10: I25.10 ICD-9: 414.18Daldpj59/23/2025UnknownDiabetic neuropathy associated with type 2 diabetes mellitusICD-10: E11.40 ICD-9: 250.97Lelrdp57Lower extremity edemaICD-10: R60.0 ICD-9: 782.4Mhqwug8202/06/2025UnknownOSA (obstructive sleep apnea)ICD-10: G47.33 ICD-9: 327.84Ckuqrh32/23/2025UnknownPoor dental hygieneSNOMED CT: 084923970 ICD-10: Z91.89 ICD-9: 525.2Bqbuth8102/06/2025UnknownSimple chronic bronchitisSNOMED CT: 19882286 ICD-10: J41.0 ICD-9: 491.5Cbhtsy1802/06/2025UnknownCKD stage 3a, GFR 45-59 ml/[address]: 321595843 ICD-10: N18.31 ICD-9: 585.9Wfzefv20Hypertensive heart disease without heart failureICD-10: I11.9 ICD-9: 402.90Yelony27/26/2025UnknownOnychogryposisICD-10: L60.2 ICD-9: 703.1Trnokw0301/09/2025UnknownType 2 diabetes mellitus with diabetic chronic kidney diseaseICD-10: E11.22 ICD-9: 250.04Zthjvj02/26/2025UnknownBody mass index [BMI] 60.0-69.9, adultICD- 10: Z68.44 ICD-9: V85.08Omhnso47/07/2025UnknownHistory of recent hospitalizationSNOMED CT: 835322604 ICD-10: Z92.89 ICD-9: V13.0Hjfniz5012/21/2024UnknownHypokalemiaICD-10: E87.6 ICD-9: 276.0Aueuhw0612/21/[address]enceSN[address]ED CT: 83770511 ICD-10: N39.46 ICD-9: 788.25Tlndqb14/07/2025UnknownType 2 diabetes mellitus with diabetic polyneuropathy, with long-term current use of insulinICD-10: E11.42 ICD-9: 250.95Ovzsgw77/07/2025UnknownCandidal intertrigoICD-10: B37.2 ICD-9: 112.8Xtyina5112/12/2024UnknownPulmonary noduleICD-10: R91.1 ICD-9: 793.32Enpxsd15/29/2025UnknownConstipation by delayed colonic transitICD- 10: K59.01 ICD-9: 564.59Skykhx42/24/2025UnknownLoose stoolsICD-10: R19.5 ICD-9: 787.3Lqrhzw9411/07/2024UnknownParaparesis of both lower limbsICD-10: G82.20 ICD-9: 344.2Okvnpq7111/07/2024UnknownSeizure disorderICD-10: G40.909 ICD-9: 345.47Atgymj40/24/2025UnknownAmputated toe of right footICD-10: S98.131A ICD-9: 895.2Wyjaey15/27/20240517/03/2025Hypercoagulable stateICD-10: D68.59 ICD-9: 289.91Pbbmkv04/27/2025UnknownMajor depression, recurrentICD-10: F33.9 ICD-9: 296.23Zedjli66/27/2025UnknownRecurrent major depressive disorder, in partial remissionICD-10: F33.41 ICD-9: 296.00Gjkfzs75/27/2025UnknownPressure ulcer of left calf, unstageableICD- 10: L89.890 ICD-9: 707.06Gucmmskn15/27/2025UnknownHemorrhoidsICD-10: K64.9 ICD-9: 455.5Vllicr6507/11/2024UnknownPVD (peripheral vascular disease)ICD-10: I73.9 ICD-9: 443.7Lvlrrp4607/11/2024UnknownHyperlipidemia associated with type 2 diabetes mellitusICD-10: E11.69 ICD-9: 250.30Dcmyry37/28/2025UnknownAdvance care planningICD-10: Z71.89 ICD-9: V65.22Luhmie79/03/2025Low back painICD-10: M54.50 ICD-9: 724.9Lgrjte8803/07/2024UnknownPhysical deconditioningICD-10: R53.81 ICD-9: 799.8Dsvwtk4303/07/2024UnknownAdvanced care planning - to document end of life jwnrbbhbqmpLgcxorqKcjuwf77/24/2024UnknownAnnual physical examICD-10: Z00.00 ICD-9: V70.9Sjlsub51History of anemia due to CKDICD-10: N18.9 ICD-9: 585.9Arpkdq6602/08/2024UnknownHx of deep venous thrombosisICD-10: Z86.718 ICD-9: V12.43Nplodg27/24/2024UnknownLearning disabilityICD-10: F81.9 ICD-9: 315.1Rslsos7802/08/2024UnknownReducible umbilical herniaICD-10: K42.9 ICD-9: 553.0Vfarfg0302/08/2024UnknownVitamin D deficiencyICD-10: E55.9 ICD-9: 268.4Ehppdf2502/08/2024UnknownCallus of heelICD-10: L84 ICD-9: 319Pmncnrfe15/28/2024UnknownGout due to renal impairmentICD-10: M10.30 ICD-9: 274.60Kscdtskz17/28/2024UnknownHyperhidrosis of palmsICD-10: L74.512 ICD-9: 705.32Jipgqamn64/28/2024UnknownHyperlipidemia, unspecifiedICD-10: E78.5 ICD-9: 272.5Rrxkdkvz93/28/2024UnknownOther rat exterminator (current) drug therapyICD- 10: Z79.899 ICD-9: V58.51Wzqdaegb32/28/2024UnknownPain of right heelICD-10: M79.671 ICD-9: 729.5Ykjlxdmn34/28/2024UnknownStage 2 chronic kidney diseaseICD-10: N18.2 ICD-9: 585.3Eukduvot60/28/2024UnknownTinea pedis of both feetICD-10: B35.3 ICD-9: 110.6Octkrdme27/28/2024UnknownCellulitisICD-10: L03.90 ICD-9: 682.7Kibeefsh33/23/2024UnknownDandruff in adultICD-10: L21.0 ICD-9: 690.01Buoeuvsu03/23/2024UnknownEncounter for other specified special examinationsICD-10: Z01.89 ICD-9: V72.68Xohtbzfk17/23/2024UnknownEncounter for screening for nutritional disorderICD-10: Z13.21 ICD-9: V77.26Scbwktfq35/23/2024UnknownImpacted cerumen, left earICD-10: H61.22 ICD-9: 380.1Woideimi41/23/2024UnknownShortness of breathICD-10: R06.02 ICD-9: 786.96Enqedazz16/23/2024UnknownSkin tagICD-10: L91.8 ICD-9: 701.9Utnzmiec60/23/2024UnknownInappropriate sexual behaviorICD-10: Z72.89 ICD-9: 312.30Ytxfif02/18/2023UnknownPre-op evaluationICD-10: Z01.818 ICD-9: V72.30Rhkvmk69/28/2023UnknownSecondary hypertensionICD-10: I15.9 ICD-9: 405.56Xevuqt34/28/2023UnknownDepressionICD-10: F32.9 ICD-9: 596Rqdlhbed44UnknownDVT (deep venous thrombosis)ICD-10: I82.409 ICD-9: 453.76Hurmnbam68/27/2022UnknownEncounter for immunizationICD-10: Z23 ICD-9: V03.39Gchxwtri57/27/2022UnknownLong term (current) use of insulinICD-10: Z79.8Slqtvguf14/27/2022UnknownMuscular painICD-10: M79.10 ICD-9: 729.4Jlylqbyz34/27/2022UnknownHypertension associated with diabetesICD- 10: E11.59 ICD-9: 250.22Cdlvxbvc38/23/2022UnknownContact with and (suspected) exposure to skumo-49ARW-30: Z20.822 ICD-9: V01.59Csmtkohh69/17/2021UnknownOther infective acute otitis externa of left earICD-10: H60.392 ICD-9: 380.68Fvphzjbm90/17/2021UnknownScrotal skin lesionICD-10: N50.9 ICD-9: 608.7Dtelaiqo45/17/2021UnknownAnemia due to stage 3b chronic kidney diseaseICD-10: N18.32 ICD-9: 285.38Klnkxcav16/18/2021UnknownChronic kidney disease, stage 3 unspecifiedICD-10: N18.34Vewoudpb79/20/2021UnknownContact with and (suspected) exposure to other viral communicable diseasesICD-10: Z20.828 ICD-9: V01.23Ftytheuw023399EcgdugqRdejapxxZonbfvsYjjsvg22/28/2020Unknown Diabetes mellitus Type 1KnweihvZyeipa24/28/2020UnknownAnemia in chronic kidney diseaseICD-10: D63.9Ykjjjtfk73/28/2020UnknownHyperlipidemia, unspecifiedICD-10: E78.6Vdnobnym38/28/2020Unknown Problems Condition Codes Effective Dates Condition St atus Coronary artery disease invo lving [place] coronary artery of king [place] heart, angina presence unspecified ICD-10: I25.10 ICD-9: 414.0109/5ActiveDiabetic neuropathy associated with type 2 diabetes mellitusICD-10: E11.40 ICD-9: 250.6009/5ActiveLower extremity edemaICD-10: R60.0 ICD-9: 782.309/5ActiveOSA (obstructive sleep apnea)ICD-10: G47.33 ICD-9: 327.2309/5ActivePoor dental hygieneSNOMED CT: 656947225 ICD-10: Z91.89 ICD-9: 525.809/5ActiveSimple chronic bronchitisSNOMED CT: 63090698 ICD-10: J41.0 ICD-9: 491.009/5ActiveCKD stage 3a, GFR 45-59 ml/minSN[address]ED CT: 896657459 ICD-10: N18.31 ICD-9: 585.308/5ActiveHypertensive heart disease without heart failureICD- 10: I11.9 ICD-9: 402.9008/5ActiveOnychogryposisICD-10: L60.2 ICD-9: 703.808/5ActiveType 2 diabetes mellitus with diabetic chronic kidney diseaseICD-10: E11.22 ICD-9: 250.4008/5ActiveBody mass index [BMI] 60.0-69.9, adultICD-10: Z68.44 ICD-9: V85.44085ActiveHistory of recent hospitalizationSNOMED CT: 463131933 ICD-10: Z92.89 ICD-9: V13.908/5ActiveHypokalemiaICD-10: E87.6 ICD-9: 276.8085ActiveMixed incontinenceSNOMED CT: 18536413 ICD-10: N39.46 ICD-9: 788.3308/5ActiveType 2 diabetes mellitus [...] planning - to document end of life gfbaeetzgkmAmoqhgz59ctiveAnnual physical examICD-10: Z00.00 ICD-9: V70.009ctiveHistory of anemia due to CKDICD-10: N18.9 ICD-9: 585.909ctiveHx of deep venous thrombosisICD-10: Z86.718 ICD-9: V12.5109ctiveLearning disabilityICD-10: F81.9 ICD-9: 315.209/ctiveReducible umbilical herniaICD-10: K42.9 ICD-9: 553.109ctiveVitamin D deficiencyICD-10: E55.9 ICD-9: 268.909ctiveCallus of heelICD-10: L84 ICD-9: 00612esolvedGout due to renal impairmentICD-10: M10.30 ICD-9: 274.1005esolvedHyperhidrosis of palmsICD-10: L74.512 ICD-9: 705.2105esolvedHyperlipidemia, unspecifiedICD-10: E78.5 ICD-9: 272.405esolvedOther snf (current) drug therapyICD-10: Z79.899 ICD-9: V58.6905esolvedPain [...] V72.8403/ctiveSecondary hypertensionICD-10: I15.9 ICD-9: 405.9903ctiveDepressionICD-10: F32.9 ICD-9: 09169/2ResolvedDVT (deep venous thrombosis)ICD-10: I82.409 ICD-9: 453.4009/2ResolvedEncounter for [...] to other viral communicable diseasesICD-10: Z20.828 ICD-9: V01.79026837GqlykcezVzxkyycnVckrmht18/28/2020ActiveDiabetes mellitus Type 6Edxvclo76/28/2020ActiveAnemia in chronic kidney diseaseICD-10: D63.1 02/12/2020ResolvedHyperlipidemia, unspecifiedICD-10: E78.Resolved Medications Medication Codes Instructions Start Date Stop Date Status Fill Instructions Calmoseptine 0.44 %-20.6 % topical ointment RxNorm: 8579311 apply topically to affected underarm and breast BID for 2 weeks then BID PRN. 03/01/20 025 Inactive Calmoseptine 0.44 %-20.6 % topical ointment RxNorm: 4778764 apply topically to affected underarm and breast BID for 2 weeks then BID PRN. 03/01/20 026 Active pregabalin 100 mg capsule RxNorm: 641817 1 CAPSULE BY MOUTH EVERY MORNING (DX: NEUROPATHY) 02/21/20 25 026 Active PLEASE SEND NEW RX, FACILITY IS REQUESTING MEDICATION. THANKS pregabalin 150 mg capsule RxNorm: 165602 1 CAPSULE BY MOUTH AT BEDTIME (DX: NEUROPATHY) 01/13/20 25 026 Active PLEASE SEND NEW RX, PATIENT IS ALMOST OUT. THANKS! clotrimazole 1 % topical cream RxNorm: 606696 apply one application to affected and surrounding area(s) of skin BID until clinical resolution (abdominal and thigh folds), typically 1-4 weeks.Pause nystatin powder use while using clotrimazole cream. 01/03/20 25 025 Inactive clotrimazole 1 % topical cream RxNorm: 507164 apply one application to affected and surrounding area(s) of skin BID until clinical resolution (abdominal and thigh folds), typically 1-4 weeks. Pause nystatin powder use while using clotrimazole cream. 01/03/20 25 025 Inactive Culturelle 10 billion cell capsule RxNorm: 186577 Take 1 Capsule(s) Oral QD 11/08/19 25 026 Active Culturelle 10 billion cell capsule RxNorm: 040367 Take 1 Capsule(s) Oral QD 11/08/19 25 025 Inactive hydrocodone 5 mg-acetaminophen 325 mg tablet RxNorm: 190459 Take 1 Tablet(s) Oral Q4H every four hours as needed for pain PRN for severe acute dental pain 10/21/19 25 025 Inactive penicillin V potassium 500 mg tablet RxNorm: 137635 Take 1 Tablet(s) Oral QID Take until dental appointment per ER recommendation 10/21/19 25 025 Inactive hydrocodone 5 mg-acetaminophen 325 mg tablet RxNorm: 543278 Take 1 Tablet(s) Oral Q4H every four hours as needed for pain PRN for severe acute dental pain 10/21/19 25 025 Inactive penicillin V potassium 500 mg tablet RxNorm: 474609 Take 1 Tablet(s) Oral QID Take until dental appointment per ER recommendation 10/21/19 25 025 Inactive potassium chloride ER 20 mEq tablet,extended release RxNorm: 901757 Take 2 Tablet(s) Oral TID (dx: hypokalemia) 09/14/19 25 026 Active potassium chloride ER 20 mEq tablet,extended release RxNorm: 929338 Take 2 Tablet(s) Oral TID (dx: hypokalemia) 09/14/19 25 025 Inactive loperamide 2 mg tablet RxNorm: 873015 Take 2 Tablet(s) Oral UD as directed [...] Date Active senna 8.6 mg tablet RxNorm: 802061 Take 1 Tablet(s) Oral QD as needed and 1 tab BID prn 09/06/19 No Stop Date Active cyclobenzaprine 10 mg tablet RxNorm: 845424 Take 1 Tablet(s) Oral QHS every night at bedtime as needed 09/06/19 No Stop Date Active loperamide 2 mg tablet RxNorm: 534149 Take 2 Tablet(s) Oral UD as directed as needed 2 tabs after first loose stool then 1 tab after each subsequent stool PRN Do not exceed 4 doses in 24 hours. Do not administer until after 3 loose stools. 09/06/19 026 Active pioglitazone 15 mg tablet RxNorm: 477712 Take 1 Tablet(s) Oral QD 09/06/19 No Stop Date Active loperamide 2 mg tablet RxNorm: 378360 Take 2 Tablet(s) Oral UD as directed as needed 2 tabs after first loose stool then 1 tab after each subsequent stool PRN Do not exceed 4 doses in 24 hours. Do not administer until after 3 loose stools. 09/06/19 025 Inactive pregabalin 100 mg capsule RxNorm: 044107 1 CAPSULE BY MOUTH EVERY MORNING (DX: NEUROPATHY) 08/23/19 25 025 Inactive FACILITY IS REQUESTING REFILL. PRIOR RX HAS BEEN EXHAUSTED. THANK YOU. pregabalin 150 mg capsule RxNorm: 145234 1 CAPSULE BY MOUTH AT BEDTIME (DX: NEUROPATHY) 08/21/19 25 025 Inactive FACILITY IS REQUESTING A REFILL OF THIS MEDICATION, THANK YOU! senna 8.6 mg tablet RxNorm: 629566 Take 1 Tablet(s) Oral QD as needed for constipation on day 2 of no bowel movement 08/09/19 25 025 Inactive Miralax 17 gram/dose oral powder RxNorm: 512093 Administer 17 Gram(s) Oral QD as needed for constipation on day 3 of no bowel movement 08/09/19 25 025 Inactive senna 8.6 mg tablet RxNorm: 442145 Take 1 Tablet(s) Oral QD as needed for constipation on day 2 of no bowel movement 08/09/19 25 025 Inactive Miralax 17 gram/dose oral powder RxNorm: 034517 Administer 17 Gram(s) Oral QD as needed for constipation on day 3 of no bowel movement 08/09/19 25 025 Inactive pregabalin 100 mg capsule RxNorm: 053867 Take 1 Capsule(s) Oral QAM every morning [...] (Concentrated) Insulin 500 unit/mL subcutaneous soln RxNorm: 297431 Inject 100 Unit(s) Subcutaneous AC before meals Three times daily before meals. 07/24/19 25 025 Inactive ammonium lactate 12 % topical cream RxNorm: 748866 Apply 1 Application Topical BID 07/20/19 25 No Stop Date Active ezetimibe 10 mg tablet RxNorm: 327357 Take 1 Tablet(s) Oral QD 07/18/19 25 No Stop Date Active senna 8.6 mg tablet RxNorm: 508398 Take 1 Tablet(s) Oral QD 07/18/19 25 025 Inactive metoprolol succinate ER 200 mg tablet,extended release 24 hr RxNorm: 953931 Take 1 Tablet(s) Oral QD 06/19/19 25 No Stop Date Active pantoprazole 40 mg tablet,delayed release RxNorm: 920647 Take 1 Tablet(s) Oral QAM every morning 06/19/19 25 025 Inactive hydralazine 50 mg tablet RxNorm: 065355 Take 1 Tablet(s) Oral QID 06/19/19 25 No Stop Date Active carbamazepine 200 mg tablet RxNorm: 792169 Take 1 Tablet(s) Oral BID 06/19/19 25 No Stop Date Active amlodipine 10 mg tablet RxNorm: 445763 Take 1 Tablet(s) Oral QD 06/19/19 25 No Stop Date Active Eliquis 5 mg tablet RxNorm: 1479777 Take 1 Tablet(s) Oral BID 06/19/19 25 No Stop Date Active pen needle, diabetic 30 gauge x 3/16 RxNorm: Use 1 6 times per day w/insulin 06/14/19 25 026 Active pen needle, diabetic 30 gauge x 3/16 RxNorm: Use 1 needle 6 times per day w/insulin 06/14/19 25 025 Inactive nystatin 100,000 unit/gram topical powder RxNorm: 837673 Apply 1 Application Topical BID as needed abdominal/breast/ groin folds 05/24/19 25 026 Active pregabalin 100 mg capsule RxNorm: 185368 Take 1 Capsule(s) Oral QAM every morning 05/22/19 25 025 Inactive nystatin 100,000 unit/gram topical powder RxNorm: 851358 Apply 1 Application Topical BID as needed abdominal/breast/ groin folds 04/11/20 24 024 Inactive chlorthalidone 25 mg tablet RxNorm: 698906 Take 1 Tablet(s) Oral QAM every morning 04/06/20 No Stop Date Active pregabalin 150 mg capsule RxNorm: 242093 Take 1 Capsule(s) Oral QHS every night at bedtime 03/31/20 24 024 Inactive Vascepa 1 gram capsule RxNorm: 3926580 Take 2 Capsule(s) Oral BID 03/30/20 24 025 Inactive rosuvastatin 40 mg tablet RxNorm: 020976 1 TAB ORALLY EVERY EVENING (DX:CORONARY ARTERY DISEASE) 03/28/20 No Stop Date Active venlafaxine ER 75 mg capsule,extended release 24 hr RxNorm: 278640 3 CAPS (225MG) ORALLY DAILY (DX: MOOD DISORDER) 03/28/20 24 No Stop Date Active pregabalin 100 mg capsule RxNorm: 607179 Take 1 Capsule(s) Oral QAM every morning 03/20/20 24 024 Inactive cholecalciferol (vitamin D3) 1,250 mcg (50,000 unit) capsule RxNorm: 874168 Take 1 Capsule(s) Oral QW once a week 03/15/20 24 025 Inactive Lancets,Thin 28 gauge RxNorm: [...] Insulin 100 unit/mL (3 mL) subcutaneous RxNorm: 9354305 Inject 40 Unit(s) Subcutaneous BID 03/07/20 Inactive Please dispense one month supply. Humulin R U-500 (Concentrated) Insulin 500 unit/mL subcutaneous soln RxNorm: 300779 Inject 100 Unit(s) Subcutaneous AC before meals [...] PRN) to be use with new Accu [place] meter 03/04/20 Inactive ok to substitute with any covered alternative test strip FreeStyle Chema 2 Sensor kit RxNorm: Use UD as directed 03/02/20 Inactive Pen Needle 30 gauge x 516 RxNorm: Pen(s) Use 1 needle as directed TID 03/02/20 Inactive nystatin 100,000 unit/gram topical powder RxNorm: 237364 Apply 1 Application Topical BID as needed [...] (Concentrated) Insulin 500 unit/mL subcutaneous soln RxNorm: 197160 Inject 100 Unit(s) Subcutaneous TID 02/17/20 24 024 Inactive Humulin R U-500 (Concentrated) Insulin 500 unit/mL subcutaneous soln RxNorm: 172341 Inject 100 Unit(s) Subcutaneous TID 02/10/20 24 024 Inactive Basaglar KwikPen U-100 Insulin 100 unit/mL (3 mL) subcutaneous RxNorm: 0521611 Inject 30 Unit(s) Subcutaneous BID 02/10/20 24 024 Inactive Please dispense one month supply. pregabalin 100 mg capsule RxNorm: 971056 Take 1 Capsule(s) Oral QAM every morning 02/07/20 24 024 Inactive isosorbide mononitrate ER 60 mg tablet,extended release 24 hr RxNorm: 407821 Take 1 Tablet(s) Oral QD 02/01/20 24 025 Inactive aripiprazole 15 mg tablet RxNorm: 881518 Take 1/2 Tablet(s) Oral QD 02/01/20 24 025 Inactive torsemide 20 mg tablet RxNorm: 663548 1 TAB ORALLY DAILY (DX: EDEMA) 01/27/20 24 No Stop Date Active potassium chloride ER 20 mEq tablet,extended release(part/cryst) RxNorm: 9408076 2 TABS (40MEQ) ORALLY TWICE DAILY (DX: HYPOKALEMIA) 01/27/20 24 Inactive cephalexin 500 mg capsule RxNorm: 955288 Take 1 Capsule(s) Oral QID 12/17/19 24 Inactive cephalexin 500 mg capsule RxNorm: 322089 Take 1 Capsule(s) Oral QID 12/17/19 24 Inactive acetaminophen 500 mg tablet RxNorm: 547415 (MAX APAP:4GM/24HR) Take 1 Tablet(s) Oral TID as needed for pain 12/10/19 24 Inactive torsemide 20 mg tablet RxNorm: 939931 Take 1 Tablet(s) Oral QD 10/26/19 24 Inactive potassium chloride ER 20 mEq tablet,extended release RxNorm: 19800522 Take 2 Tablet(s) Oral BID 10/26/19 24 Inactive torsemide 20 mg tablet RxNorm: 532913 Take 1 Tablet(s) Oral QD 10/26/19 24 025 Inactive potassium chloride ER 20 mEq tablet,extended release RxNorm: 19800522 Take 2 Tablet(s) Oral BID 10/26/19 24 025 Inactive Artificial Tears (PF) 0.1 %-0.3 % drops in a dropperette RxNorm: 010448 Apply 1-2 Drop(s) Both eyes BID as needed 09/28/19 24 Inactive erythromycin 5 mg/gram (0.5 %) eye ointment RxNorm: 389362 Apply 1 Application Both eyes QHS every night at bedtime Instill ~1 cm ribbon into affected eye 09/28/19 24 Inactive Artificial Tears (PF) 0.1 %-0.3 % drops in a dropperette RxNorm: 692300 Apply 1-2 Drop(s) Both eyes BID as needed 09/28/19 24 024 Inactive erythromycin 5 mg/gram (0.5 %) eye ointment RxNorm: 967911 Apply 1 Application Both eyes QHS every night at bedtime Instill ~1 cm ribbon into affected eye 09/28/19 24 024 Inactive acetaminophen 500 mg tablet RxNorm: 297967 (MAX APAP:4GM/24HR) Take 1 Tablet(s) Oral TID as needed for pain 09/24/19 24 024 Inactive carvedilol 25 mg tablet RxNorm: 389596 Take 1 Tablet(s) Oral QD 09/08/19 24 No Stop Date Active pregabalin 100 mg capsule RxNorm: 330039 Take 1 Capsule(s) Oral QAM every morning 09/07/19 24 024 Inactive bisacodyl 10 mg rectal suppository RxNorm: 828670 Insert 1 Suppository Rectal QD as needed 07/13/19 24 No Stop Date Active ketoconazole 2 % shampoo RxNorm: 030270 Apply 1 Application Topical UD as directed 07/13/19 24 No Stop Date Active Ozempic 1 mg/dose (4 mg/3 mL) subcutaneous pen injector RxNorm: 8347926 Inject 1 Milligram(s) Subcutaneous QW once a week 07/13/19 24 No Stop Date Active Guaifenesin AC 10 mg-100 mg/5 mL oral liquid RxNorm: 019818 Take 10 Milliliter(s) Oral Q4H every four hours as needed 07/13/19 24 No Stop Date Active hydrocortisone 2.5 % topical cream RxNorm: 148410 Apply 1 Application Topical BID as needed 07/13/19 24 No Stop Date Active rosuvastatin 40 mg tablet RxNorm: 590900 Take 1 Tablet(s) Oral QPM every evening 07/13/19 24 024 Inactive ezetimibe 10 mg tablet RxNorm: 416832 Take 1 Tablet(s) Oral QD 07/13/19 24 025 Inactive polyethylene glycol 3350 17 gram/dose oral powder RxNorm: 474966 Take 17 Gram(s) Oral BID as needed mix in 4-8ox water 07/13/19 24 025 Inactive aripiprazole 15 mg tablet RxNorm: 039394 Take 1/2 Tablet(s) Oral QD 07/13/19 24 024 Inactive isosorbide mononitrate ER 60 mg tablet,extended release 24 hr RxNorm: 830725 Take 1 Tablet(s) Oral QD 07/13/19 24 024 Inactive ammonium lactate 12 % topical cream RxNorm: 032145 Apply 1 Application Topical BID 07/13/19 24 025 Inactive rosuvastatin 20 mg sprinkle capsule RxNorm: 4178018 Take 1 Capsule(s) Oral QD 07/13/19 24 025 Inactive Vascepa 1 gram capsule RxNorm: 1871272 Take 2 Capsule(s) Oral BID 07/13/19 24 024 Inactive venlafaxine ER 75 mg capsule,extended release 24 hr RxNorm: 942719 Take 3 Capsule(s) Oral QD 07/13/19 24 024 Inactive Basaglar KwikPen U-100 Insulin 100 unit/mL (3 mL) subcutaneous RxNorm: 5244308 Inject 30U SubQ twice daily 07/07/19 24 024 Inactive Please dispense one month supply. Basaglar KwikPen U-100 Insulin 100 unit/mL (3 mL) subcutaneous RxNorm: 0466105 Inject 30U SubQ twice daily 07/07/19 24 024 Inactive Please dispense one month supply. pregabalin 150 mg capsule RxNorm: 681964 Take 1 Capsule(s) Oral QHS every night at bedtime 07/05/19 24 024 Inactive pregabalin 150 mg capsule RxNorm: 941313 Take 1 Capsule(s) Oral QHS every night at bedtime 07/05/19 24 024 Inactive polyethylene glycol 3350 17 gram/dose oral powder RxNorm: 533218 Take 1 Packet Oral QD as needed (1 packet = 17g) mix with 4-8oz of liquid 06/15/19 24 024 Inactive bisacodyl 10 mg rectal suppository RxNorm: 450601 Insert one suppository per rectum once daily as needed for constipation 06/15/19 24 024 Inactive bisacodyl 10 mg rectal suppository RxNorm: 209121 Insert one suppository per rectum once daily as needed for constipation 06/15/19 24 024 Inactive pregabalin 100 mg capsule RxNorm: 126194 Take 1 Capsule(s) Oral QAM every morning 04/27/20 23 024 Inactive Levemir FlexPen 100 unit/mL (3 mL) solution subcutaneous insulin pen RxNorm: 902349 Inject 30 Unit(s) Subcutaneous BID 04/27/20 23 024 Inactive rosuvastatin 40 mg tablet RxNorm: 108703 Take 1 Tablet(s) Oral QPM every evening 04/16/20 024 Inactive D/C rosuvastatin 20mg venlafaxine ER 75 mg capsule,extended release 24 hr RxNorm: 137486 Take 3 Capsule(s) Oral QD 04/14/20 023 Inactive pregabalin 100 mg capsule RxNorm: 397417 Take 1 Capsule(s) Oral QAM every morning [...] strip clotrimazole 1 % topical cream RxNorm: 714163 Take apply topically to abdominal folds twice daily for 14 days 03/12/20 024 Inactive Ozempic 1 mg/dose (4 mg/3 mL) subcutaneous pen injector RxNorm: 1491166 Inject 1 Milligram(s) Subcutaneous QW once a week 03/11/20 023 Inactive rosuvastatin 20 mg tablet RxNorm: 863550 Take 1 Tablet(s) Oral QD 02/26/20 023 Inactive d/c pravastatin 80mg Ozempic 1 mg/dose (4 mg/3 mL) subcutaneous pen injector RxNorm: 6017725 Inject 1 Milligram(s) Subcutaneous QW once a week 02/20/20 23 023 Inactive pregabalin 150 mg capsule RxNorm: 365365 Take 1 Capsule(s) Oral HS at bed time 02/19/20 23 023 Inactive pregabalin 100 mg capsule RxNorm: 458868 Take 1 Capsule(s) Oral QAM every morning 02/18/20 23 023 Inactive venlafaxine ER 75 mg capsule,extended release 24 hr RxNorm: 959044 Take 3 Capsule(s) Oral QD 02/04/20 23 023 Inactive FreeStyle Chema 2 Sensor kit RxNorm: use as directed 02/04/20 23 023 Inactive FreeStyle Chema 2 Sensor kit RxNorm: use as directed 02/04/20 23 024 Inactive fluconazole 150 mg tablet RxNorm: 481245 Take 1 Tablet(s) Oral on day 3 and on day 6 02/03/20 23 024 Inactive venlafaxine ER 150 mg capsule,extended release 24 hr RxNorm: 122722 Take 1 Capsule(s) Oral QD 02/03/20 23 023 Inactive chlorthalidone 25 mg tablet RxNorm: 030439 Take 1 Tablet(s) Oral QAM every morning 02/03/20 23 024 Inactive acetaminophen 500 mg tablet RxNorm: 564153 1 TABLET ORALLY 3 TIMES DAILY (MAX APAP:4GM/24HR) 12/15/19 23 023 Inactive potassium chloride ER 20 mEq tablet,extended release RxNorm: 835115 Take 1 Tablet(s) Oral BID 12/09/19 23 024 Inactive d/c 20mEq once daily (sent from hospital) clotrimazole 1 % topical cream RxNorm: 395911 apply 1g topically to top of feet and in between toes BID 12/09/19 23 025 Inactive nystatin 100,000 unit/gram topical powder RxNorm: 361544 APPLY TO AFFECTED AREAS TOPICALLY 2 TIMES DAILY 11/21/19 23 023 Inactive Nystop 100,000 unit/gram topical powder RxNorm: 131737 Apply to abd folds, under breasts and L side of groin Topical BID x 14 days, then BID PRN 11/20/19 23 023 Inactive dx: yeast dermatitis Bengay Ultra Strength 4 %-30 %-10 % topical cream RxNorm: 546933 Apply 1 Gram(s) Topical QID PRN to feet and legs for neuropathic pain 11/11/19 024 Inactive hydrocortisone 2.5 % topical cream RxNorm: 035693 Apply 1/2 Gram(s) Topical BID as needed 11/10/19 024 Inactive clotrimazole 1 % topical cream RxNorm: 588764 Apply 1/2 Gram(s) Topical BID Apply to affected areas of groin, periarea, and abdominal topically 2 times daily 11/10/19 025 Inactive Levemir FlexPen 100 unit/mL (3 mL) solution subcutaneous insulin pen RxNorm: 610931 Inject 30 Unit(s) Subcutaneous BID 10/07/19 023 Inactive Humulin R U-500 (Concentrated) Insulin 500 unit/mL subcutaneous soln RxNorm: 164732 Inject 100 Unit(s) Subcutaneous TID 10/07/19 024 Inactive Ozempic 0.25 mg or 0.5 mg (2 mg/3 mL) subcutaneous pen injector RxNorm: 4269279 Inject 1/2 Milligram(s) Subcutaneous QW once a week 10/07/19 024 Inactive aripiprazole 15 mg tablet RxNorm: 736186 1/2 TAB (7.5MG) ORALLY DAILY (DX:MAJOR DEPRESSIVE DISORDER) 09/23/19 023 Inactive Accu-Chek Guide test strips RxNorm: Use 1 Test Strip QID 09/15/19 23 023 Inactive ok to substitute with any covered alternative test strip Lancets,Thin 28 gauge RxNorm: Use 1 as directed QID 09/15/19 23 023 Inactive torsemide 20 mg tablet RxNorm: 099903 Take 1 Tablet(s) Oral BID 09/09/19 23 024 Inactive d/c once daily dosing carvedilol 25 mg tablet RxNorm: 085470 Take 1 Tablet(s) Oral QD 08/25/19 23 024 Inactive pregabalin 150 mg capsule RxNorm: 425680 1 Capsule(s) Oral HS at bed time 08/18/19 023 Inactive pregabalin 100 mg capsule RxNorm: 233855 1 Capsule(s) Oral QAM every morning 08/18/19 23 023 Inactive carvedilol 25 mg tablet RxNorm: 891457 1 Tablet(s) Oral QD 07/28/19 23 023 Inactive lisinopril 20 mg tablet RxNorm: 651249 Give 1 Tablet(s) Oral QD 07/28/19 23 023 Inactive Lyrica 150 mg capsule RxNorm: 146609 Take 1 Capsule(s) Oral QHS every night at bedtime 07/19/19 023 Inactive d/c 100mg dose Diflucan 150 mg tablet RxNorm: 359089 Take 1 Tablet(s) Oral QD repeat on day 3 and 6 07/19/19 023 Inactive pregabalin 100 mg capsule RxNorm: 199564 Take 1 Capsule(s) Oral QAM every morning 07/19/19 023 Inactive gatifloxacin 0.5 % eye drops RxNorm: 158523 Instill 1 Drop(s) as directed TID Instill 1 drop in to affected eye(s) starting 1 day prior to surgery and continue until gone (do not exceed 4 weeks). 07/13/19 23 023 Inactive carvedilol 25 mg tablet RxNorm: 993458 2 Tablet(s) Oral BID 07/13/19 023 Inactive Humulin R Regular U-100 Insulin 100 unit/mL injection solution RxNorm: 809805 85 Unit(s) Injection TID 07/13/19 23 023 Inactive ketorolac 0.5 % eye drops RxNorm: 394521 Instill 1 Drop(s) as directed QID Instill 1 drop into affected eye(s) 4 times daily starting 1 day prior to surgery and continue until gone (do not exceed 4 weeks). 07/13/19 23 023 Inactive Diflucan 150 mg tablet RxNorm: 726895 Take 1 Tablet(s) Oral QD repeat on day 3 and 6 06/30/19 23 023 Inactive Accu-Chek Guide test strips RxNorm: Use 1 Test Strip QID Use 1 test strip to monitor blood glucose 4 times daily and as needed. Dx:E11.42. 06/23/19 023 Inactive ok to substitute with any covered alternative test strip dextromethorphan-gu aifenesin 10 mg-100 mg/5 mL oral liquid RxNorm: 839058 Take 10 Milliliter(s) Oral every 4 hours as needed for cough 06/19/19 023 Inactive dextromethorphan-gu aifenesin 10 mg-100 mg/5 mL oral liquid RxNorm: 042320 Take 10 Milliliter(s) Oral every 4 hours as needed for cough 06/19/19 023 Inactive Lyrica 150 mg capsule RxNorm: 685380 Take 1 Capsule(s) Oral QHS every night at bedtime 06/18/19 023 Inactive d/c 100mg dose aripiprazole 15 mg tablet RxNorm: 270336 /2 TAB (7.5MG) ORALLY DAILY (DX:MAJOR DEPRESSIVE DISORDER) 06/05/19 023 Inactive pregabalin 100 mg capsule RxNorm: 861900 1 Capsule(s) Oral QAM every morning 06/02/19 023 Inactive Banophen 50 mg capsule RxNorm: 9800825 Take 1 Capsule(s) Oral Q6H every 6 hours as needed 05/19/19 23 No Stop Date Active Novolog Flexpen U-100 Insulin aspart 100 unit/mL (3 mL) subcutaneous RxNorm: 6601442 Inject 10 Unit(s) Subcutaneous QHS every night at bedtime with nighttime snack 04/08/20 022 Inactive Novolog Flexpen U-100 Insulin aspart 100 unit/mL (3 mL) subcutaneous RxNorm: 0719092 Inject 42 Unit(s) Subcutaneous TID in addition to sliding scale 04/08/20 022 Inactive d/c 36u albuterol sulfate HFA 90 mcg/actuation aerosol inhaler RxNorm: 3449198 Take 2 Puff(s) Inhalation Q4H every four hours as needed as needed for SOB, cough, or wheezing 04/07/20 22 030 Active Banophen 50 mg capsule RxNorm: 4079947 Take 1 Capsule(s) Oral Q6H every 6 hours as needed 04/06/20 22 023 Inactive diphenhydramine 50 mg tablet RxNorm: 4598269 Take 1 Tablet(s) Oral Q6H every 6 hours as needed 04/06/20 22 022 Inactive diphenhydramine 50 mg tablet RxNorm: 5223300 1 Tablet(s) Oral Q6H every 6 hours as needed 04/06/20 22 022 Inactive Abilify 15 mg tablet RxNorm: 087674 1/2 Tablet(s) Oral QD 03/10/20 023 Inactive Shingrix (PF) 50 mcg/0.5 mL intramuscular suspension, kit RxNorm: 8405785 Administer 1/2 Milliliter(s) Intramuscular QD one time shingrix step 2 ( step 1 given 11/04/21) WITH needle - Nursing please administer upon arrival and once administered post a bridge message with date of administration, roll cleaner, expiration date, and lot# so we can update [facility] 02/18/20 22 022 Inactive dispense with needle Shingrix (PF) 50 mcg/0.5 mL intramuscular suspension, kit RxNorm: 2583190 Administer 1/2 Milliliter(s) Intramuscular QD one time shingrix step 2 ( step 1 given 11/04/21) WITH needle - Nursing please administer upon arrival and once administered post a bridge message with date of administration, roll cleaner, expiration date, and lot# so we can update [facility] 02/18/20 22 022 Inactive dispense with needle Lyrica 100 mg capsule RxNorm: 217338 Take 1 Capsule(s) Oral QAM every morning 01/08/20 22 022 Inactive d/c 50mg dose acetaminophen 500 mg tablet RxNorm: 223977 Take 1 Tablet(s) Oral TID 01/08/20 22 022 Inactive d/c PRN order Lyrica 150 mg capsule RxNorm: 691822 Take 1 Capsule(s) Oral QHS every night at bedtime 01/08/20 22 023 Inactive d/c 100mg dose polyethylene glycol 3350 17 gram/dose oral powder RxNorm: 916449 Take 17=1 capful Gram(s) Oral QD mix with 4-8oz of liquid 01/08/20 22 025 Inactive take this in addition to BID prn order Abilify 5 mg tablet RxNorm: 432692 Take 1 Tablet(s) Oral QD take 1 tab po QD #30 refill 5 dx: MDD 12/12/19 22 022 Inactive Abilify 5 mg tablet RxNorm: 026400 Take 1 Tablet(s) Oral QD take 1 tab po QD #30 refill 5 dx: MDD 12/12/19 22 022 Inactive Novolog Flexpen U-100 Insulin aspart 100 unit/mL (3 mL) subcutaneous RxNorm: 2320207 Inject 42 Unit(s) Subcutaneous TID in addition to sliding scale 12/10/19 22 022 Inactive d/c 36u chlorthalidone 25 mg tablet RxNorm: 558077 Take 1 Tablet(s) Oral QAM every morning 12/10/19 22 023 Inactive pregabalin 50 mg capsule RxNorm: 168018 Take 1 Capsule(s) Oral QAM every morning 11/12/19 22 022 Inactive tetanus-diphtheria toxoids-Td 2 Lf unit-2 Lf unit/0.5 mL IM suspension RxNorm: 139 Take 0.5 Miscellaneous Intramuscular 11/12/19 22 022 Inactive need tdap - nursing to administer upon arrival pregabalin 50 mg capsule RxNorm: 108703 Take 1 Capsule(s) Oral QAM every morning 10/16/19 22 022 Inactive pregabalin 50 mg capsule RxNorm: 019920 Take 1 Capsule(s) Oral QAM every morning 10/16/19 22 022 Inactive pregabalin 50 mg capsule RxNorm: 665680 1 Capsule(s) Oral QAM every morning 10/15/19 22 022 Inactive Shingrix (PF) 50 mcg/0.5 mL intramuscular suspension, kit RxNorm: 5803993 Administer 1/2 Milliliter(s) Intramuscular one time Nursing please administer upon arrival and once administered post a bridge message with date of administration, roll cleaner, expiration date, and lot# so we can update [facility]. 10/09/19 22 022 Inactive shingrix step 1 Shingrix (PF) 50 mcg/0.5 mL intramuscular suspension, kit RxNorm: 3325855 Administer 1/2 Milliliter(s) Intramuscular one time Nursing please administer upon arrival and once administered post a bridge message with date of administration, roll cleaner, expiration date, and lot# so we [...] aspart 100 unit/mL (3 mL) subcutaneous RxNorm: 2967429 Inject 10 Unit(s) Subcutaneous QHS every night at bedtime with nighttime snack 10/08/19 22 022 Inactive Shingrix (PF) 50 mcg/0.5 mL intramuscular suspension, kit RxNorm: 4000826 ADMINISTER 2-DOSE SERIES PER CDC GUIDELINES 10/08/19 22 022 Active Shingrix (PF) 50 mcg/0.5 mL intramuscular suspension, kit RxNorm: 0205908 ADMINISTER 2-DOSE SERIES PER CDC GUIDELINES 10/08/19 22 022 Inactive Novolog Flexpen U-100 Insulin aspart 100 unit/mL (3 mL) subcutaneous RxNorm: 3979210 Inject 36 Unit(s) Subcutaneous TID in addition to sliding scale 10/08/19 22 022 Inactive cholecalciferol (vitamin D3) 1,250 mcg (50,000 unit) capsule RxNorm: 938180 Take 1 Capsule(s) Oral QW once a week 10/08/19 22 024 Inactive Novofine Autocover 30 gauge x 1/3 needle RxNorm: Use 1 Miscellaneous UD as directed Use 1 needle as directed to administer insulin 5 times a day Dx:E11.42. 10/03/19 22 022 Inactive ok to substitute with any covered alternative pen needle benzoyl peroxide 10 % topical cleanser RxNorm: 982560 Apply 1 Application Topical QD apply to face, wash rinse and dry once daily (may change to QOD if drying) 08/19/19 22 022 Inactive (%covered by insurance) #60ml refill 11 dx: acne benzoyl peroxide 10 % topical cleanser RxNorm: 533569 Apply 1 Application Topical QD apply to face, wash rinse and dry once daily (may change to QOD if drying) 08/19/19 22 022 Inactive (%covered by insurance) #60ml refill 11 dx: acne benzoyl peroxide 10 % topical cleanser RxNorm: 589513 Apply 1 Application Topical QD apply to face, wash rinse and dry once daily (may change to QOD if drying) 08/19/19 22 022 Inactive (%covered by insurance) #60ml refill 11 dx: acne Lyrica 50 mg capsule RxNorm: 955876 Take 1 Capsule(s) Oral QAM every morning Take 1 capsule by mouth once daily 08/19/19 22 022 Inactive benzoyl peroxide 10 % topical cleanser RxNorm: 725768 Apply 1 Application Topical QD apply to face, wash rinse and dry once daily (may change to QOD if drying) 08/19/19 022 Inactive (%covered by insurance) #60ml refill 11 dx: acne Lyrica 100 mg capsule RxNorm: 671367 Take 1 Capsule(s) Oral QHS every night at bedtime Take 1 capsule by mouth once daily at bedtime 08/19/19 22 022 Inactive Lyrica 100 mg capsule RxNorm: 321477 Take 1 Capsule(s) Oral QHS every night at bedtime Take 1 capsule by mouth once daily at bedtime 08/16/19 22 022 Inactive Lyrica 50 mg capsule RxNorm: 041718 Take 1 Capsule(s) Oral QAM every morning Take 1 capsule by mouth once daily 08/16/19 22 022 Inactive Levemir FlexTouch U-100 Insulin 100 unit/mL (3 mL) subcutaneous pen RxNorm: 165860 Inject 86 Unit(s) Subcutaneous BID 08/05/19 22 022 Inactive d/c 83units BID Lyrica 100 mg capsule RxNorm: 138093 Take 1 Capsule(s) Oral QHS every night at bedtime Take 1 capsule by mouth once daily at bedtime 07/14/19 22 022 Inactive Lyrica 50 mg capsule RxNorm: 559722 Take 1 Capsule(s) Oral QAM every morning Take 1 capsule by mouth once daily 07/14/19 22 022 Inactive Levemir FlexTouch U-100 Insulin 100 unit/mL (3 mL) subcutaneous pen RxNorm: 592532 Inject 83 Unit(s) Subcutaneous BID 07/08/19 22 [...] test strip hydralazine 50 mg tablet RxNorm: 863074 Take 1 Tablet(s) Oral QID 05/05/20 Inactive venlafaxine ER 225 mg tablet,extended release 24 hr RxNorm: 802312 Take 1 Tablet(s) Oral QD 05/05/20 21 Inactive venlafaxine ER 225 mg tablet,extended release 24 hr RxNorm: 152653 Take 1 Tablet(s) Oral QD 05/05/20 Inactive isosorbide mononitrate ER 30 mg tablet,extended release 24 hr RxNorm: 609022 Take 1 Tablet(s) Oral QD 05/05/20 024 Inactive hydralazine 50 mg tablet RxNorm: 911871 Take 1 Tablet(s) Oral QID 05/05/20 Inactive aspirin 81 mg tablet,delayed release RxNorm: 199263 Take 1 Tablet(s) Oral QD 03/31/20 022 Inactive Vitamin D2 1,250 mcg (50,000 unit) capsule RxNorm: 2963220 Take 1 Capsule(s) Oral QW once a week x 12 weeks 03/31/20 022 Inactive Vitamin D2 1,250 mcg (50,000 unit) capsule RxNorm: 8420257 Take 1 Capsule(s) Oral QW once a week 03/31/20 Inactive Zetia 10 mg tablet RxNorm: 743090 Take 1 Tablet(s) Oral QD 03/31/20 024 Inactive Zetia 10 mg tablet RxNorm: 025373 Take 1 Tablet(s) Oral QD 03/31/20 021 Inactive hydralazine 25 mg tablet RxNorm: 642958 Take 1 Tablet(s) Oral QID 03/31/20 21 021 Inactive hydralazine 25 mg tablet RxNorm: 667558 Take 1 Tablet(s) Oral QID 03/31/20 021 Inactive hydralazine 10 mg tablet RxNorm: 307593 Take 1 Tablet(s) Oral QID 03/03/20 021 Inactive cephalexin 500 mg tablet RxNorm: 995932 Take 1 Tablet(s) Oral QID 02/27/20 021 Inactive cephalexin 500 mg tablet RxNorm: 722407 Take 1 Tablet(s) Oral QID 02/27/20 021 Inactive lisinopril 40 mg tablet RxNorm: 614371 Take 1 Tablet(s) Oral QD 02/11/20 023 Inactive Eliquis 5 mg tablet RxNorm: 3086357 Take 1 Tablet(s) Oral BID 01/05/20 21 025 Inactive Eliquis 5 mg tablet RxNorm: 2202660 Take 2 Tablet(s) Oral QD 01/01/20 21 021 Inactive Lyrica 50 mg capsule RxNorm: 365323 Take 1 Capsule(s) Oral QAM every morning 12/24/19 021 Inactive Lyrica 100 mg capsule RxNorm: 536110 Take 1 Capsule(s) Oral QHS every night at bedtime 12/24/19 021 Inactive clotrimazole 1 % topical cream RxNorm: 296450 Apply to right foot and toes Topical BID 12/04/19 21 023 Inactive metoprolol succinate ER 200 mg tablet,extended release 24 hr RxNorm: 872459 Take 1 Tablet(s) Oral QD 12/04/19 023 Inactive ciprofloxacin 500 mg tablet RxNorm: 089515 Take 1 Tablet(s) Oral QD 11/30/19 21 021 Inactive DX ofloxacin otic drops Accu-Chek Guide test strips RxNorm: USE 1 TO CHECK GLUCOSE 4 TIMES DAILY AND NEEDED 11/15/19 21 023 Inactive Blood Glucose Test strips RxNorm: Use 1 Test Strip QID at PRN 11/05/19 21 023 Inactive E11.42 lisinopril 30 mg tablet RxNorm: 595085 Take 1 Tablet(s) Oral QD 10/30/19 21 021 Inactive lisinopril 20 mg tablet RxNorm: 818202 Take 1 Tablet(s) Oral QD 10/23/19 21 Inactive lisinopril 20 mg tablet RxNorm: 976618 Take 1 Tablet(s) Oral QD 10/23/19 21 021 Inactive lisinopril 10 mg tablet RxNorm: 766939 Take 1 Tablet(s) Oral QD 10/02/19 21 021 Inactive icosapent ethyl 1 gram capsule RxNorm: 3991049 Take 2 Capsule(s) (2 gm) Oral BID with meals 09/12/19 024 Inactive Okay to dispense one 2gm tab if you have that available. icosapent ethyl 1 gram capsule RxNorm: 2893162 Take 2 Capsule(s) Oral BID 09/12/19 021 Inactive Okay to dispense one 2gm tab if you have that available. amlodipine 10 mg tablet RxNorm: 218307 Take 1 Tablet(s) Oral QD 09/04/19 21 021 Inactive aspirin 81 mg tablet,delayed release RxNorm: 509629 Take 1 Tablet(s) Oral QD 09/04/19 21 Inactive Levemir FlexTouch U-100 Insulin 100 unit/mL (3 mL) subcutaneous pen RxNorm: 548070 Inject 150 Unit(s) Subcutaneous BID 09/04/19 022 Inactive venlafaxine ER 150 mg tablet,extended release 24 hr RxNorm: 116547 Take 1 Tablet(s) Oral QD 09/04/19 21 021 Inactive clotrimazole-betame thasone 1 %-0.05 % topical cream RxNorm: 788558 Apply to rash on red area on left abdomen/chest Topical BID 08/10/19 21 Inactive amlodipine 5 mg tablet RxNorm: 216150 Take 1 Tablet(s) Oral QD 07/31/19 21 021 Inactive cephalexin 500 mg tablet RxNorm: 110991 Take 1 Tablet(s) Oral BID BID - Twice Daily 03/16/ 021 Inactive Start 08/01/20 pantoprazole 40 mg tablet,delayed release RxNorm: 368149 Take 1 Tablet(s) Oral QAM every morning 07/08/19 025 Inactive clopidogrel 75 mg tablet RxNorm: 460079 Take 1 Tablet(s) Oral QD 07/08/19 021 Inactive Blood Glucose Test strips RxNorm: Use 1 Test Strip QID at PRN 07/08/19 21 Inactive E11.42 senna 8.6 mg tablet RxNorm: 161248 Take 1 Tablet(s) Oral QD 07/08/19 025 Inactive Novolog Flexpen U-100 Insulin aspart 100 unit/mL (3 mL) subcutaneous RxNorm: 5851610 Administer per sliding scale Milliliter(s) Subcutaneous TID 151-200: 10 u; 201-250: 20 u; 251-300: 30 u; 301-350: 40 u; 351-400: 50 u. 07/08/19 21 022 Inactive lisinopril 5 mg tablet RxNorm: 328744 Take 1 Tablet(s) Oral QD 07/08/19 021 Inactive Novolog Flexpen U-100 Insulin aspart 100 unit/mL (3 mL) subcutaneous RxNorm: 7216306 Inject 85 Unit(s) Subcutaneous TID 07/08/19 21 022 Inactive pravastatin 80 mg tablet RxNorm: 475640 Take 1 Tablet(s) Oral QHS every night at bedtime 07/08/19 023 Inactive clotrimazole 1 % topical cream RxNorm: 341394 Apply to bilateral groin areas Topical BID 07/08/19 21 022 Inactive metoprolol succinate ER 200 mg tablet,extended release 24 hr RxNorm: 905769 Take 1 Tablet(s) Oral QD 07/08/19 21 021 Inactive Vitamin D3 25 mcg (1,000 unit) tablet RxNorm: 729168 Take 1 Tablet(s) Oral QD 07/08/19 21 021 Inactive isosorbide dinitrate 30 mg tablet RxNorm: 236554 Take 1 Tablet(s) Oral QD 07/08/19 21 021 Inactive carbamazepine 200 mg tablet RxNorm: 511073 Take 1 Tablet(s) Oral BID 07/08/19 21 025 Inactive Levemir FlexTouch U-100 Insulin 100 unit/mL (3 mL) subcutaneous pen RxNorm: 869842 Inject 140 Unit(s) Subcutaneous BID 07/08/19 21 021 Inactive torsemide 20 mg tablet RxNorm: 379096 Take 1 Tablet(s) Oral QD 07/08/19 21 023 Inactive venlafaxine 75 mg tablet RxNorm: 182670 Take 1 Tablet(s) Oral QD 07/08/19 21 021 Inactive acetaminophen 500 mg tablet RxNorm: 634441 Take 1 Tablet(s) Oral TID as needed for headache 06/18/19 21 021 Inactive acetaminophen 500 mg tablet RxNorm: 158897 Take 1 Tablet(s) Oral TID as needed for headache 06/18/19 21 021 Inactive Lyrica 100 mg capsule RxNorm: 491605 Take 1 Capsule(s) Oral QHS every night at bedtime 06/11/19 21 021 Inactive Lyrica 50 mg capsule RxNorm: 857791 Take 1 Capsule(s) Oral QAM every morning 06/10/19 21 021 Inactive hydrocortisone 2.5 % topical cream RxNorm: 433090 Apply to bilateral groin creases Topical BID 05/15/20 20 021 Inactive clotrimazole 1 % topical cream RxNorm: 425320 Apply to bilateral groin areas Topical BID 05/15/20 20 021 Inactive Lyrica 50 mg capsule RxNorm: 742261 Take 1 Capsule(s) Oral QAM every morning 05/14/20 20 020 Inactive Lyrica 100 mg capsule RxNorm: 989716 Take 1 Capsule(s) Oral QHS every night [...] Inactive Nystop 100,000 unit/gram topical powder RxNorm: 708493 Apply to abd folds, under breasts and L side of groin Topical BID x 14 days, then BID PRN 04/08/20 20 Inactive dx: yeast dermatitis Lyrica 100 mg capsule RxNorm: 524069 Take 1 Capsule(s) Oral QHS every night at bedtime 03/13/20 20 Inactive Lyrica 50 mg capsule RxNorm: 742971 Take 1 Capsule(s) Oral QAM every morning 03/13/20 20 Inactive ketoconazole 2 % shampoo RxNorm: 017000 Apply Topical two times a week with showers 03/11/20 20 024 Inactive cholecalciferol (vitamin D3) 50 mcg (2,000 unit) tablet RxNorm: 296043 Take 1 Tablet(s) Oral QD 03/11/20 20 021 Inactive Zetia 10 mg tablet RxNorm: 510768 Take 1 Tablet(s) Oral QD 03/07/20 20 021 Inactive Zetia 10 mg tablet RxNorm: 861370 Take 1 Tablet(s) Oral QD 03/07/20 20 Inactive Lyrica 50 mg capsule RxNorm: 883471 Take 1 Capsule(s) Oral QAM every morning 02/15/20 20 Inactive Lyrica 100 mg capsule RxNorm: 539728 Take 1 Capsule(s) Oral QHS every night at bedtime 02/15/20 20 Inactive Lyrica 100 mg capsule RxNorm: 862507 Take 1 Capsule(s) Oral QHS every night at bedtime 02/15/20 20 020 Inactive Lyrica 50 mg capsule RxNorm: 505800 Take 1 Capsule(s) Oral QAM every morning 02/15/20 20 020 Inactive venlafaxine ER 75 mg capsule,extended release 24 hr RxNorm: 275276 Take 3 Capsule(s) Oral QD 06/12/19 22 023 Inactive polyethylene glycol 3350 17 gram/dose oral powder RxNorm: 307396 Take 17=1 capful Gram(s) Oral BID as needed mix with 4-8oz of liquid 06/12/19 22 024 Inactive icosapent ethyl 1 gram capsule RxNorm: 8141924 Take 2 Capsule(s) (2 gm) Oral BID with meals 10/07/19 23 023 Inactive Okay to dispense one 2gm tab if you have that available. Levemir FlexTouch U-100 Insulin 100 unit/mL (3 mL) subcutaneous pen RxNorm: 727390 Inject 80 Unit(s) Subcutaneous BID 07/14/19 23 023 Inactive metoprolol succinate ER 200 mg tablet,extended release 24 hr RxNorm: 555084 Take 1 Tablet(s) Oral QD 08/12/19 23 025 Inactive loperamide 2 mg capsule RxNorm: 277478 Take 1 Capsule(s) Oral QID as needed 09/06/19 25 025 Inactive hydralazine 50 mg tablet RxNorm: 305192 Take 1 Tablet(s) Oral QID 08/12/19 23 025 Inactive Soft Touch Lancets RxNorm: miscellaneous 03/04/20 24 025 Inactive Novolog Flexpen U-100 Insulin aspart 100 unit/mL (3 mL) subcutaneous RxNorm: 6573950 Insert 30 Unit(s) Subcutaneous TID with meals [...] Codes Status Date Referral: [facility] [address] [id number] [place]erral[place] Records Iiolgsvj19/06/2025Referral: [facility]/Endocrinology WPtel: [address] [id number] [place]ReferralNo Records Sozkzirk98/24/2025Referral: [facility] WPtel: [address] [id number] USReferralRecords Cnmxeayr04/08/2023Referral: [facility] WPtel: [address] 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
[2025-04-29 09:15] LABS: Alanine Aminotransferase* 19 U/L (4-50); Aspartate Amino Transferase* 26 U/L (12-35); Blood Urea Nitrogen* 29 mg/dL (7-30); Creatinine* 1.4 mg/dL (0.5-1.5); Estimated Glomerular Filt Rate 56 ml/min
[2025-04-29 09:16] LABS: Alkaline Phosphatase* 91 U/L (40-150); Anion Gap 8 mEq/L (7-15); Bilirubin Total* 0.8 mg/dL (0.1-1.5); Calcium* 8.8 mg/dL (8.4-10.6); Carbon Dioxide* 28 mmol/L (20-32); Glucose* 173 mg/dL (60-115); Total Protein* 7.5 g/dL (6.0-8.3)
[2025-04-29 09:17] LABS: Lymphocytes Absolute Auto 1.40 K/uL (0.90-2.90); Slide Review Reflex No
--- OUTSIDE RECORDS SUMMARY | 2025-04-29 09:21 | XMS_ITS | CCD ---
Author Name Cecilio Durham Address [address] [place] [address] Phone Organization [facility] Phone Care Team Providers Care Superintendent Factory Name Role Phone Harrison Durham Primary Care Provider Leona vailable Unavailable Chronic Care Management Unavaila ble Summary Purpose DataExchange Insurance Providers Payer name Policy type / Coverage type Covered alliance party ID Effective Begin Date Effective End Date [place] Medicare Part B [id number] Unknown Unknown [place] B [id number] Unknown Unknown Family history Sister Brittany Suggs [...] on file 07/11/[address]: 994091225 Never smoker 01/16 Sexually Active? Unknown No [...] Care Facility 09/03/[address]: 999584338 No Alcohol Consum ption 09/02/2020 Allergies, Adverse Reactions, Alerts Substance Reaction Codes Entered Date Inactivated Date Status * NO KNOWN FOOD ALLERGIES Jxburdi3907/13/2023No Inactive DateActiveLISINOPRILRxNorm: 257726302/12/2020No Inactive DateActiveMetformin ELiOpnotub31/28/2020No Inactive DateActive* NO KNOWN ENVIRONMENTAL BJICCXSSWMrzvhiv93/27/2024No Inactive DateActive Past Medical History Illness Codes Condition Status Onset Date Resolved Date Coronary artery disease invo lving hoh coronary artery of hoh heart, angina presence unspecified ICD-10: I25.10 ICD-9: 414.90Hhzgfm40/23/2025UnknownDiabetic neuropathy associated with type 2 diabetes mellitusICD-10: E11.40 ICD-9: 250.04Fuhlfi24/03/2025Lower extremity edemaICD-10: R60.0 ICD-9: 782.4Jurpgv5802/06/2025UnknownOSA (obstructive sleep apnea)ICD-10: G47.33 ICD-9: 327.05Jcjcai47/23/2025UnknownPoor dental hygieneSNOMED CT: 573664379 ICD-10: Z91.89 ICD-9: 525.8Cmxmva9502/06/2025UnknownSimple chronic bronchitisSNOMED CT: 88113195 ICD-10: J41.0 ICD-9: 491.0Bieomj3902/06/2025UnknownCKD stage 3a, GFR 45-59 ml/[address]: 609712476 ICD-10: N18.31 ICD-9: 585.1Eyorrz26Hypertensive heart disease without heart failureICD-10: I11.9 ICD-9: 402.28Shrzpw53/26/2025UnknownOnychogryposisICD-10: L60.2 ICD-9: 703.8Pyplrz2301/09/2025UnknownType 2 diabetes mellitus with diabetic chronic kidney diseaseICD-10: E11.22 ICD-9: 250.99Oysbpp09/26/2025UnknownBody mass index [BMI] 60.0-69.9, adultICD- 10: Z68.44 ICD-9: V85.09Bkhjth65/07/2025UnknownHistory of recent hospitalizationSNOMED CT: 775889501 ICD-10: Z92.89 ICD-9: V13.9Ztqayt2412/21/2024UnknownHypokalemiaICD-10: E87.6 ICD-9: 276.1Lkxupf0412/21/[address]enceSNOMED CT: 40838867 ICD-10: N39.46 ICD-9: 788.30Pghsuk84/07/2025UnknownType 2 diabetes mellitus with diabetic polyneuropathy, with long-term current use of insulinICD-10: E11.42 ICD-9: 250.84Mlcbbu55/07/2025UnknownCandidal intertrigoICD-10: B37.2 ICD-9: 112.5Cnhhmo6712/12/2024UnknownPulmonary noduleICD-10: R91.1 ICD-9: 793.41Tlykmv28/29/2025UnknownConstipation by delayed colonic transitICD- 10: K59.01 ICD-9: 564.34Jukwcx30/24/2025UnknownLoose stoolsICD-10: R19.5 ICD-9: 787.4Qrdsja6311/07/2024UnknownParaparesis of both lower limbsICD-10: G82.20 ICD-9: 344.8Dcehnk4411/07/2024UnknownSeizure disorderICD-10: G40.909 ICD-9: 345.01Jovvvs44/24/2025UnknownAmputated toe of right footICD-10: S98.131A ICD-9: 895.9Qxtram66/27/20240517/03/2025Hypercoagulable stateICD-10: D68.59 ICD-9: 289.83Pdhvhg57/27/2025UnknownMajor depression, recurrentICD-10: F33.9 ICD-9: 296.73Cqhznl96/27/2025UnknownRecurrent major depressive disorder, in partial remissionICD-10: F33.41 ICD-9: 296.50Idpdkb94/27/2025UnknownPressure ulcer of left calf, unstageableICD- 10: L89.890 ICD-9: 707.25Fgusomrx04/27/2025UnknownHemorrhoidsICD-10: K64.9 ICD-9: 455.7Jmfhew3607/11/2024UnknownPVD (peripheral vascular disease)ICD-10: I73.9 ICD-9: 443.3Ytbdvg6507/11/2024UnknownHyperlipidemia associated with type 2 diabetes mellitusICD-10: E11.69 ICD-9: 250.22Xoimud07/28/2025UnknownAdvance care planningICD-10: Z71.89 ICD-9: V65.77Vclypz57/23/20230517/03/2025Low back painICD-10: M54.50 ICD-9: 724.4Gizzzm7703/07/2024UnknownPhysical deconditioningICD-10: R53.81 ICD-9: 799.6Joerzy2003/07/2024UnknownAdvanced care planning - to document end of life xcffslqtdbwRcuvpckBbtwpx67/24/2024UnknownAnnual physical examICD-10: Z00.00 ICD-9: V70.1Qbeoas98/03/2025History of anemia due to CKDICD-10: N18.9 ICD-9: 585.6Yevlzp8702/08/2024UnknownHx of deep venous thrombosisICD-10: Z86.718 ICD-9: V12.36Gxbyot53/24/2024UnknownLearning disabilityICD-10: F81.9 ICD-9: 315.3Lopzsv5002/08/2024UnknownReducible umbilical herniaICD-10: K42.9 ICD-9: 553.9Esvhky7302/08/2024UnknownVitamin D deficiencyICD-10: E55.9 ICD-9: 268.3Muoifq1902/08/2024UnknownCallus of heelICD-10: L84 ICD-9: 316Wxjedgkd19/28/2024UnknownGout due to renal impairmentICD-10: M10.30 ICD-9: 274.45Wflkhfsw09/28/2024UnknownHyperhidrosis of palmsICD-10: L74.512 ICD-9: 705.74Obixenxq10/28/2024UnknownHyperlipidemia, unspecifiedICD-10: E78.5 ICD-9: 272.0Huixkfei82/28/2024UnknownOther termite control technician (current) drug therapyICD- 10: Z79.899 ICD-9: V58.24Vlkylzvn76/28/2024UnknownPain of right heelICD-10: M79.671 ICD-9: 729.0Omkfvcbc30/28/2024UnknownStage 2 chronic kidney diseaseICD-10: N18.2 ICD-9: 585.7Exgnadhy84/28/2024UnknownTinea pedis of both feetICD-10: B35.3 ICD-9: 110.1Eqkyelsc45/28/2024UnknownCellulitisICD-10: L03.90 ICD-9: 682.8Tzhsvulc28/23/2024UnknownDandruff in adultICD-10: L21.0 ICD-9: 690.55Puejghhk60/23/2024UnknownEncounter for other specified special examinationsICD-10: Z01.89 ICD-9: V72.43Uuspuswk88/23/2024UnknownEncounter for screening for nutritional disorderICD-10: Z13.21 ICD-9: V77.93Gcszrbox69/23/2024UnknownImpacted cerumen, left earICD-10: H61.22 ICD-9: 380.4Mjvvuhcf32/23/2024UnknownShortness of breathICD-10: R06.02 ICD-9: 786.75Fnfmqtij66/23/2024UnknownSkin tagICD-10: L91.8 ICD-9: 701.5Ggmzjruk27/23/2024UnknownInappropriate sexual behaviorICD-10: Z72.89 ICD-9: 312.26Raonfx50UnknownPre-op evaluationICD-10: Z01.818 ICD-9: V72.63Velumm67/28/2023UnknownSecondary hypertensionICD-10: I15.9 ICD-9: 405.66Zcdahs21/28/2023UnknownDepressionICD-10: F32.9 ICD-9: 495Mubvkafg17/27/2022UnknownDVT (deep venous thrombosis)ICD-10: I82.409 ICD-9: 453.69Epxbjucb46/27/2022UnknownEncounter for immunizationICD-10: Z23 ICD-9: V03.17Txpeevqs47/27/2022UnknownLong term (current) use of insulinICD-10: Z79.0Vagihbsy76/27/2022UnknownMuscular painICD-10: M79.10 ICD-9: 729.9Nfnsgteh34/27/2022UnknownHypertension associated with diabetesICD- 10: E11.59 ICD-9: 250.44Rkdlwtkh49/23/2022UnknownContact with and (suspected) exposure to rhzhm-22RQG-09: Z20.822 ICD-9: V01.88Hwyvoimo49/17/2021UnknownOther infective acute otitis externa of left earICD-10: H60.392 ICD-9: 380.18Hozlmdie52/17/2021UnknownScrotal skin lesionICD-10: N50.9 ICD-9: 608.5Dgiphgvn09/17/2021UnknownAnemia due to stage 3b chronic kidney diseaseICD-10: N18.32 ICD-9: 285.86Zefbhqrm03/18/2021UnknownChronic kidney disease, stage 3 unspecifiedICD-10: N18.85Tjwuqkxp56/20/2021UnknownContact with and (suspected) exposure to other viral communicable diseasesICD-10: Z20.828 ICD-9: V01.20Ixagojut204207NlcobouSelvwgrgLsowdmfTlvsjw96/28/2020Unknown Diabetes mellitus Type 7DhjhcsbOmexqz69/28/2020UnknownAnemia in chronic kidney diseaseICD-10: D63.4Yemlfknb04/28/2020UnknownHyperlipidemia, unspecifiedICD-10: E78.1Meudqbmg62/28/2020Unknown Problems Condition Codes Effective Dates Condition St atus Coronary artery disease invo lving hoh coronary artery of hoh heart, angina presence unspecified ICD-10: I25.10 ICD-9: 414.0109/5ActiveDiabetic neuropathy associated with type 2 diabetes mellitusICD-10: E11.40 ICD-9: 250.6009/5ActiveLower extremity edemaICD-10: R60.0 ICD-9: 782.309/5ActiveOSA (obstructive sleep apnea)ICD-10: G47.33 ICD-9: 327.2309/5ActivePoor dental hygieneSNOMED CT: 399567577 ICD-10: Z91.89 ICD-9: 525.8095ActiveSimple chronic bronchitisSNOMED CT: 13172365 ICD-10: J41.0 ICD-9: 491.009/5ActiveCKD stage 3a, GFR 45-59 ml/minSNOMED CT: 241699565 ICD-10: N18.31 ICD-9: 585.308/5ActiveHypertensive heart disease without heart failureICD- 10: I11.9 ICD-9: 402.9008/5ActiveOnychogryposisICD-10: L60.2 ICD-9: 703.8085ActiveType 2 diabetes mellitus with diabetic chronic kidney diseaseICD-10: E11.22 ICD-9: 250.4008/5ActiveBody mass index [BMI] 60.0-69.9, adultICD-10: Z68.44 ICD-9: V85.44085ActiveHistory of recent hospitalizationSNOMED CT: 196346662 ICD-10: Z92.89 ICD-9: V13.908/5ActiveHypokalemiaICD-10: E87.6 ICD-9: 276.808/5ActiveMixed incontinenceSNOMED CT: 38532445 ICD-10: N39.46 ICD-9: 788.3308/5ActiveType 2 diabetes mellitus [...] planning - to document end of life dbhhcmawswaMggmvqt42/24/2024ctiveAnnual physical examICD-10: Z00.00 ICD-9: V70.009ctiveHistory of anemia due to CKDICD-10: N18.9 ICD-9: 585.909ctiveHx of deep venous thrombosisICD-10: Z86.718 ICD-9: V12.5109ctiveLearning disabilityICD-10: F81.9 ICD-9: 315.209ctiveReducible umbilical herniaICD-10: K42.9 ICD-9: 553.109ctiveVitamin D deficiencyICD-10: E55.9 ICD-9: 268.909ctiveCallus of heelICD-10: L84 ICD-9: 68878/esolvedGout due to renal impairmentICD-10: M10.30 ICD-9: 274.1005esolvedHyperhidrosis of palmsICD-10: L74.512 ICD-9: 705.21010/12/2023esolvedHyperlipidemia, unspecifiedICD-10: E78.5 ICD-9: 272.405esolvedOther termite control technician (current) drug therapyICD-10: Z79.899 ICD-9: V58.6905esolvedPain of [...] V72.8403/ctiveSecondary hypertensionICD-10: I15.9 ICD-9: 405.9903/ctiveDepressionICD-10: F32.9 ICD-9: 00304/2ResolvedDVT (deep venous thrombosis)ICD-10: I82.409 ICD-9: 453.4009esolvedEncounter for [...] to other viral communicable diseasesICD-10: Z20.828 ICD-9: V01.79021279EheabcisIciwdegnByzzdfn80/28/2020ActiveDiabetes mellitus Type 9Vvvgkwc01/28/2020ActiveAnemia in chronic kidney diseaseICD-10: D63.1 02/12/2020ResolvedHyperlipidemia, unspecifiedICD-10: E78.Resolved Medications Medication Codes Instructions Start Date Stop Date Status Fill Instructions omeprazole 20 mg capsule,delayed release RxNorm: 803303 Take 1 Capsule(s) Oral QD 03/05/20 25 026 Active omeprazole 20 mg capsule,delayed release RxNorm: 835764 Take 1 Capsule(s) Oral QD 03/05/20 25 025 Inactive Calmoseptine 0.44 %-20.6 % topical ointment RxNorm: 2518269 apply topically to affected underarm and breast BID for 2 weeks then BID PRN. 03/01/20 25 026 Active Calmoseptine 0.44 %-20.6 % topical ointment RxNorm: 3193813 apply topically to affected underarm and breast BID for 2 weeks then BID PRN. 03/01/20 25 025 Inactive pregabalin 100 mg capsule RxNorm: 654116 1 CAPSULE BY MOUTH EVERY MORNING (DX: NEUROPATHY) 02/21/20 25 026 Active PLEASE SEND NEW RX, FACILITY IS REQUESTING MEDICATION. THANKS pregabalin 150 mg capsule RxNorm: 685626 1 CAPSULE BY MOUTH AT BEDTIME (DX: NEUROPATHY) 01/13/20 25 026 Active PLEASE SEND NEW RX, PATIENT IS ALMOST OUT. THANKS! clotrimazole 1 % topical cream RxNorm: 648789 apply one application to affected and surrounding area(s) of skin BID until clinical resolution (abdominal and thigh folds), typically 1-4 weeks.Pause nystatin powder use while using clotrimazole cream. 01/03/20 25 025 Inactive clotrimazole 1 % topical cream RxNorm: 810794 apply one application to affected and surrounding area(s) of skin BID until clinical resolution (abdominal and thigh folds), typically 1-4 weeks. Pause nystatin powder use while using clotrimazole cream. 01/03/20 25 025 Inactive Culturelle 10 billion cell capsule RxNorm: 382801 Take 1 Capsule(s) Oral QD 11/08/19 25 026 Active Culturelle 10 billion cell capsule RxNorm: 785204 Take 1 Capsule(s) Oral QD 11/08/19 25 025 Inactive hydrocodone 5 mg-acetaminophen 325 mg tablet RxNorm: 317641 Take 1 Tablet(s) Oral Q4H every four hours as needed for pain PRN for severe acute dental pain 10/21/19 25 025 Inactive penicillin V potassium 500 mg tablet RxNorm: 524857 Take 1 Tablet(s) Oral QID Take until dental appointment per ER recommendation 10/21/19 25 025 Inactive hydrocodone 5 mg-acetaminophen 325 mg tablet RxNorm: 279306 Take 1 Tablet(s) Oral Q4H every four hours as needed for pain PRN for severe acute dental pain 10/21/19 25 025 Inactive penicillin V potassium 500 mg tablet RxNorm: 573060 Take 1 Tablet(s) Oral QID Take until dental appointment per ER recommendation 10/21/19 25 025 Inactive potassium chloride ER 20 mEq tablet,extended release RxNorm: 509627 Take 2 Tablet(s) Oral TID (dx: hypokalemia) 09/14/19 25 026 Active potassium chloride ER 20 mEq tablet,extended release RxNorm: 888690 Take 2 Tablet(s) Oral TID (dx: hypokalemia) 09/14/19 25 025 Inactive loperamide 2 mg tablet RxNorm: 168415 Take 2 Tablet(s) Oral UD as directed [...] Date Active senna 8.6 mg tablet RxNorm: 531037 Take 1 Tablet(s) Oral QD as needed and 1 tab BID prn 09/06/19 No Stop Date Active cyclobenzaprine 10 mg tablet RxNorm: 582086 Take 1 Tablet(s) Oral QHS every night at bedtime as needed 09/06/19 No Stop Date Active loperamide 2 mg tablet RxNorm: 120640 Take 2 Tablet(s) Oral UD as directed as needed 2 tabs after first loose stool then 1 tab after each subsequent stool PRN Do not exceed 4 doses in 24 hours. Do not administer until after 3 loose stools. 09/06/19 25 026 Active pioglitazone 15 mg tablet RxNorm: 719065 Take 1 Tablet(s) Oral QD 09/06/19 No Stop Date Active loperamide 2 mg tablet RxNorm: 324739 Take 2 Tablet(s) Oral UD as directed as needed 2 tabs after first loose stool then 1 tab after each subsequent stool PRN Do not exceed 4 doses in 24 hours. Do not administer until after 3 loose stools. 09/06/19 25 025 Inactive pregabalin 100 mg capsule RxNorm: 189091 1 CAPSULE BY MOUTH EVERY MORNING (DX: NEUROPATHY) 08/23/19 25 025 Inactive FACILITY IS REQUESTING REFILL. PRIOR RX HAS BEEN EXHAUSTED. THANK YOU. pregabalin 150 mg capsule RxNorm: 235774 1 CAPSULE BY MOUTH AT BEDTIME (DX: NEUROPATHY) 08/21/19 25 025 Inactive FACILITY IS REQUESTING A REFILL OF THIS MEDICATION, THANK YOU! senna 8.6 mg tablet RxNorm: 213046 Take 1 Tablet(s) Oral QD as needed for constipation on day 2 of no bowel movement 08/09/19 25 025 Inactive Miralax 17 gram/dose oral powder RxNorm: 690514 Administer 17 Gram(s) Oral QD as needed for constipation on day 3 of no bowel movement 08/09/19 25 025 Inactive senna 8.6 mg tablet RxNorm: 608262 Take 1 Tablet(s) Oral QD as needed for constipation on day 2 of no bowel movement 08/09/19 25 025 Inactive Miralax 17 gram/dose oral powder RxNorm: 430427 Administer 17 Gram(s) Oral QD as needed for constipation on day 3 of no bowel movement 08/09/19 25 025 Inactive pregabalin 100 mg capsule RxNorm: 675107 Take 1 Capsule(s) Oral QAM every morning [...] (Concentrated) Insulin 500 unit/mL subcutaneous soln RxNorm: 527407 Inject 100 Unit(s) Subcutaneous AC before meals Three times daily before meals. 07/24/19 25 025 Inactive ammonium lactate 12 % topical cream RxNorm: 754705 Apply 1 Application Topical BID 07/20/19 No Stop Date Active ezetimibe 10 mg tablet RxNorm: 809086 Take 1 Tablet(s) Oral QD 07/18/19 No Stop Date Active senna 8.6 mg tablet RxNorm: 733505 Take 1 Tablet(s) Oral QD 07/18/19 25 025 Inactive metoprolol succinate ER 200 mg tablet,extended release 24 hr RxNorm: 371528 Take 1 Tablet(s) Oral QD 06/19/19 No Stop Date Active hydralazine 50 mg tablet RxNorm: 199715 Take 1 Tablet(s) Oral QID 06/19/19 No Stop Date Active carbamazepine 200 mg tablet RxNorm: 181177 Take 1 Tablet(s) Oral BID 06/19/19 25 No Stop Date Active amlodipine 10 mg tablet RxNorm: 859449 Take 1 Tablet(s) Oral QD 06/19/19 25 No Stop Date Active Eliquis 5 mg tablet RxNorm: 4710095 Take 1 Tablet(s) Oral BID 06/19/19 25 No Stop Date Active pantoprazole 40 mg tablet,delayed release RxNorm: 520475 Take 1 Tablet(s) Oral QAM every morning 06/19/19 25 025 Inactive pen needle, diabetic 30 gauge x 3/16 RxNorm: Use 1 6 times per day w/insulin 06/14/19 25 026 Active pen needle, diabetic 30 gauge x 3/16 RxNorm: Use 1 needle 6 times per day w/insulin 06/14/19 25 025 Inactive nystatin 100,000 unit/gram topical powder RxNorm: 525765 Apply 1 Application Topical BID as needed abdominal/breast/ groin folds 05/24/19 25 026 Active pregabalin 100 mg capsule RxNorm: 134978 Take 1 Capsule(s) Oral QAM every morning 05/22/19 25 025 Inactive nystatin 100,000 unit/gram topical powder RxNorm: 920641 Apply 1 Application Topical BID as needed abdominal/breast/ groin folds 04/11/20 24 024 Inactive chlorthalidone 25 mg tablet RxNorm: 704804 Take 1 Tablet(s) Oral QAM every morning 04/06/20 24 No Stop Date Active pregabalin 150 mg capsule RxNorm: 151016 Take 1 Capsule(s) Oral QHS every night at bedtime 03/31/20 24 024 Inactive Vascepa 1 gram capsule RxNorm: 5990709 Take 2 Capsule(s) Oral BID 03/30/20 24 025 Inactive rosuvastatin 40 mg tablet RxNorm: 379859 1 TAB ORALLY EVERY EVENING (DX:CORONARY ARTERY DISEASE) 03/28/20 24 No Stop Date Active venlafaxine ER 75 mg capsule,extended release 24 hr RxNorm: 427310 3 CAPS (225MG) ORALLY DAILY (DX: MOOD DISORDER) 03/28/20 24 No Stop Date Active pregabalin 100 mg capsule RxNorm: 205538 Take 1 Capsule(s) Oral QAM every morning 03/20/20 Inactive cholecalciferol (vitamin D3) 1,250 mcg (50,000 unit) capsule RxNorm: 122725 Take 1 Capsule(s) Oral QW once a [...] Insulin 100 unit/mL (3 mL) subcutaneous RxNorm: 0891072 Inject 40 Unit(s) Subcutaneous BID 03/07/20 025 Inactive Please dispense one month supply. Humulin R U-500 (Concentrated) Insulin 500 unit/mL subcutaneous soln RxNorm: 738047 Inject 100 Unit(s) Subcutaneous AC before meals [...] PRN) to be use with new Accu Celina meter 03/04/20 024 Inactive ok to substitute with any covered alternative test strip FreeStyle Chema 2 Sensor kit RxNorm: Use UD as directed 03/02/20 Inactive Pen Needle 30 gauge x 5/16 RxNorm: Pen(s) Use 1 needle as directed TID 03/02/20 Inactive nystatin 100,000 unit/gram topical powder RxNorm: 892777 Apply 1 Application Topical BID as needed [...] (Concentrated) Insulin 500 unit/mL subcutaneous soln RxNorm: 475005 Inject 100 Unit(s) Subcutaneous TID 02/17/20 24 024 Inactive Humulin R U-500 (Concentrated) Insulin 500 unit/mL subcutaneous soln RxNorm: 072548 Inject 100 Unit(s) Subcutaneous TID 02/10/20 24 024 Inactive Basaglar KwikPen U-100 Insulin 100 unit/mL (3 mL) subcutaneous RxNorm: 3290840 Inject 30 Unit(s) Subcutaneous BID 02/10/20 24 024 Inactive Please dispense one month supply. pregabalin 100 mg capsule RxNorm: 062744 Take 1 Capsule(s) Oral QAM every morning 02/07/20 24 024 Inactive isosorbide mononitrate ER 60 mg tablet,extended release 24 hr RxNorm: 557104 Take 1 Tablet(s) Oral QD 02/01/20 24 025 Inactive aripiprazole 15 mg tablet RxNorm: 494315 Take 1/2 Tablet(s) Oral QD 02/01/20 24 025 Inactive torsemide 20 mg tablet RxNorm: 816483 1 TAB ORALLY DAILY (DX: EDEMA) 01/27/20 24 No Stop Date Active potassium chloride ER 20 mEq tablet,extended release(part/cryst) RxNorm: 9076351 2 TABS (40MEQ) ORALLY TWICE DAILY (DX: HYPOKALEMIA) 01/27/20 24 025 Inactive cephalexin 500 mg capsule RxNorm: 859056 Take 1 Capsule(s) Oral QID 12/17/19 24 024 Inactive cephalexin 500 mg capsule RxNorm: 426627 Take 1 Capsule(s) Oral QID 12/17/19 24 024 Inactive acetaminophen 500 mg tablet RxNorm: 019059 (MAX APAP:4GM/24HR) Take 1 Tablet(s) Oral TID as needed for pain 12/10/19 24 024 Inactive torsemide 20 mg tablet RxNorm: 800773 Take 1 Tablet(s) Oral QD 10/26/19 24 024 Inactive potassium chloride ER 20 mEq tablet,extended release RxNorm: 19800522 Take 2 Tablet(s) Oral BID 10/26/19 24 024 Inactive torsemide 20 mg tablet RxNorm: 988769 Take 1 Tablet(s) Oral QD 10/26/19 24 Inactive potassium chloride ER 20 mEq tablet,extended release RxNorm: 936503 Take 2 Tablet(s) Oral BID 10/26/19 24 025 Inactive Artificial Tears (PF) 0.1 %-0.3 % drops in a dropperette RxNorm: 263840 Apply 1-2 Drop(s) Both eyes BID as needed 09/28/19 24 Inactive erythromycin 5 mg/gram (0.5 %) eye ointment RxNorm: 675513 Apply 1 Application Both eyes QHS every night at bedtime Instill ~1 cm ribbon into affected eye 09/28/19 24 024 Inactive Artificial Tears (PF) 0.1 %-0.3 % drops in a dropperette RxNorm: 248737 Apply 1-2 Drop(s) Both eyes BID as needed 09/28/19 24 024 Inactive erythromycin 5 mg/gram (0.5 %) eye ointment RxNorm: 698301 Apply 1 Application Both eyes QHS every night at bedtime Instill ~1 cm ribbon into affected eye 09/28/19 24 Inactive acetaminophen 500 mg tablet RxNorm: 224453 (MAX APAP:4GM/24HR) Take 1 Tablet(s) Oral TID as needed for pain 09/24/19 24 024 Inactive carvedilol 25 mg tablet RxNorm: 300906 Take 1 Tablet(s) Oral QD 09/08/19 24 No Stop Date Active pregabalin 100 mg capsule RxNorm: 005595 Take 1 Capsule(s) Oral QAM every morning 09/07/19 24 024 Inactive bisacodyl 10 mg rectal suppository RxNorm: 783384 Insert 1 Suppository Rectal QD as needed 07/13/19 24 No Stop Date Active ketoconazole 2 % shampoo RxNorm: 518041 Apply 1 Application Topical UD as directed 07/13/19 24 No Stop Date Active Ozempic 1 mg/dose (4 mg/3 mL) subcutaneous pen injector RxNorm: 0620321 Inject 1 Milligram(s) Subcutaneous QW once a week 07/13/19 24 No Stop Date Active Guaifenesin AC 10 mg-100 mg/5 mL oral liquid RxNorm: 891364 Take 10 Milliliter(s) Oral Q4H every four hours as needed 07/13/19 24 No Stop Date Active hydrocortisone 2.5 % topical cream RxNorm: 224311 Apply 1 Application Topical BID as needed 07/13/19 24 No Stop Date Active rosuvastatin 40 mg tablet RxNorm: 832175 Take 1 Tablet(s) Oral QPM every evening 07/13/19 24 024 Inactive ezetimibe 10 mg tablet RxNorm: 297534 Take 1 Tablet(s) Oral QD 07/13/19 24 025 Inactive polyethylene glycol 3350 17 gram/dose oral powder RxNorm: 177493 Take 17 Gram(s) Oral BID as needed mix in 4-8ox water 07/13/19 24 025 Inactive aripiprazole 15 mg tablet RxNorm: 260119 Take 1/2 Tablet(s) Oral QD 07/13/19 24 024 Inactive isosorbide mononitrate ER 60 mg tablet,extended release 24 hr RxNorm: 506257 Take 1 Tablet(s) Oral QD 07/13/19 24 024 Inactive ammonium lactate 12 % topical cream RxNorm: 487030 Apply 1 Application Topical BID 07/13/19 24 025 Inactive rosuvastatin 20 mg sprinkle capsule RxNorm: 5169626 Take 1 Capsule(s) Oral QD 07/13/19 24 025 Inactive Vascepa 1 gram capsule RxNorm: 1918282 Take 2 Capsule(s) Oral BID 07/13/19 24 024 Inactive venlafaxine ER 75 mg capsule,extended release 24 hr RxNorm: 960037 Take 3 Capsule(s) Oral QD 07/13/19 24 024 Inactive Basaglar KwikPen U-100 Insulin 100 unit/mL (3 mL) subcutaneous RxNorm: 9367486 Inject 30U SubQ twice daily 07/07/19 24 024 Inactive Please dispense one month supply. Basaglar KwikPen U-100 Insulin 100 unit/mL (3 mL) subcutaneous RxNorm: 1750541 Inject 30U SubQ twice daily 07/07/19 24 024 Inactive Please dispense one month supply. pregabalin 150 mg capsule RxNorm: 491246 Take 1 Capsule(s) Oral QHS every night at bedtime 07/05/19 24 024 Inactive pregabalin 150 mg capsule RxNorm: 325569 Take 1 Capsule(s) Oral QHS every night at bedtime 07/05/19 24 024 Inactive polyethylene glycol 3350 17 gram/dose oral powder RxNorm: 364350 Take 1 Packet Oral QD as needed (1 packet = 17g) mix with 4-8oz of liquid 06/15/19 24 024 Inactive bisacodyl 10 mg rectal suppository RxNorm: 896602 Insert one suppository per rectum once daily as needed for constipation 06/15/19 24 024 Inactive bisacodyl 10 mg rectal suppository RxNorm: 044222 Insert one suppository per rectum once daily as needed for constipation 06/15/19 24 024 Inactive pregabalin 100 mg capsule RxNorm: 307690 Take 1 Capsule(s) Oral QAM every morning 04/27/20 024 Inactive Levemir FlexPen 100 unit/mL (3 mL) solution subcutaneous insulin pen RxNorm: 652787 Inject 30 Unit(s) Subcutaneous BID 04/27/20 024 Inactive rosuvastatin 40 mg tablet RxNorm: 702487 Take 1 Tablet(s) Oral QPM every evening 04/16/20 024 Inactive D/C rosuvastatin 20mg venlafaxine ER 75 mg capsule,extended release 24 hr RxNorm: 837373 Take 3 Capsule(s) Oral QD 04/14/20 023 Inactive pregabalin 100 mg capsule RxNorm: 386959 Take 1 Capsule(s) Oral QAM every morning [...] strip clotrimazole 1 % topical cream RxNorm: 977302 Take apply topically to abdominal folds twice daily for 14 days 03/12/20 024 Inactive Ozempic 1 mg/dose (4 mg/3 mL) subcutaneous pen injector RxNorm: 0715744 Inject 1 Milligram(s) Subcutaneous QW once a week 03/11/20 23 023 Inactive rosuvastatin 20 mg tablet RxNorm: 920367 Take 1 Tablet(s) Oral QD 02/26/20 23 023 Inactive d/c pravastatin 80mg Ozempic 1 mg/dose (4 mg/3 mL) subcutaneous pen injector RxNorm: 8598039 Inject 1 Milligram(s) Subcutaneous QW once a week 02/20/20 23 023 Inactive pregabalin 150 mg capsule RxNorm: 223891 Take 1 Capsule(s) Oral HS at bed time 02/19/20 23 023 Inactive pregabalin 100 mg capsule RxNorm: 617888 Take 1 Capsule(s) Oral QAM every morning 02/18/20 023 Inactive venlafaxine ER 75 mg capsule,extended release 24 hr RxNorm: 000699 Take 3 Capsule(s) Oral QD 02/04/20 023 Inactive FreeStyle Chema 2 Sensor kit RxNorm: use as directed 02/04/20 23 023 Inactive FreeStyle Chema 2 Sensor kit RxNorm: use as directed 02/04/20 23 024 Inactive fluconazole 150 mg tablet RxNorm: 334116 Take 1 Tablet(s) Oral on day 3 and on day 6 02/03/20 23 024 Inactive venlafaxine ER 150 mg capsule,extended release 24 hr RxNorm: 130727 Take 1 Capsule(s) Oral QD 02/03/20 023 Inactive chlorthalidone 25 mg tablet RxNorm: 499828 Take 1 Tablet(s) Oral QAM every morning 02/03/20 23 024 Inactive acetaminophen 500 mg tablet RxNorm: 643766 1 TABLET ORALLY 3 TIMES DAILY (MAX APAP:4GM/24HR) 12/15/19 23 023 Inactive potassium chloride ER 20 mEq tablet,extended release RxNorm: 610785 Take 1 Tablet(s) Oral BID 12/09/19 23 024 Inactive d/c 20mEq once daily (sent from hospital) clotrimazole 1 % topical cream RxNorm: 161529 apply 1g topically to top of feet and in between toes BID 12/09/19 23 025 Inactive nystatin 100,000 unit/gram topical powder RxNorm: 109752 APPLY TO AFFECTED AREAS TOPICALLY 2 TIMES DAILY 11/21/19 23 023 Inactive Nystop 100,000 unit/gram topical powder RxNorm: 577834 Apply to abd folds, under breasts and L side of groin Topical BID x 14 days, then BID PRN 11/20/19 23 023 Inactive dx: yeast dermatitis Bengay Ultra Strength 4 %-30 %-10 % topical cream RxNorm: 511468 Apply 1 Gram(s) Topical QID PRN to feet and legs for neuropathic pain 11/11/19 23 024 Inactive hydrocortisone 2.5 % topical cream RxNorm: 979746 Apply 1/2 Gram(s) Topical BID as needed 11/10/19 23 024 Inactive clotrimazole 1 % topical cream RxNorm: 711782 Apply 1/2 Gram(s) Topical BID Apply to affected areas of groin, periarea, and abdominal topically 2 times daily 11/10/19 23 025 Inactive Levemir FlexPen 100 unit/mL (3 mL) solution subcutaneous insulin pen RxNorm: 688114 Inject 30 Unit(s) Subcutaneous BID 10/07/19 23 023 Inactive Humulin R U-500 (Concentrated) Insulin 500 unit/mL subcutaneous soln RxNorm: 402350 Inject 100 Unit(s) Subcutaneous TID 10/07/19 024 Inactive Ozempic 0.25 mg or 0.5 mg (2 mg/3 mL) subcutaneous pen injector RxNorm: 1086098 Inject 1/2 Milligram(s) Subcutaneous QW once a week 10/07/19 23 024 Inactive aripiprazole 15 mg tablet RxNorm: 897138 1/2 TAB (7.5MG) ORALLY DAILY (DX:MAJOR DEPRESSIVE DISORDER) 09/23/19 023 Inactive Accu-Chek Guide test strips RxNorm: Use 1 Test Strip QID 09/15/19 23 023 Inactive ok to substitute with any covered alternative test strip Lancets,Thin 28 gauge RxNorm: Use 1 as directed QID 09/15/19 23 023 Inactive torsemide 20 mg tablet RxNorm: 885346 Take 1 Tablet(s) Oral BID 09/09/19 23 024 Inactive d/c once daily dosing carvedilol 25 mg tablet RxNorm: 929899 Take 1 Tablet(s) Oral QD 08/25/19 23 024 Inactive pregabalin 150 mg capsule RxNorm: 537418 1 Capsule(s) Oral HS at bed time 08/18/19 23 023 Inactive pregabalin 100 mg capsule RxNorm: 008254 1 Capsule(s) Oral QAM every morning 08/18/19 23 023 Inactive carvedilol 25 mg tablet RxNorm: 154672 1 Tablet(s) Oral QD 07/28/19 23 023 Inactive lisinopril 20 mg tablet RxNorm: 044284 Give 1 Tablet(s) Oral QD 07/28/19 23 023 Inactive Lyrica 150 mg capsule RxNorm: 088822 Take 1 Capsule(s) Oral QHS every night at bedtime 07/19/19 23 023 Inactive d/c 100mg dose Diflucan 150 mg tablet RxNorm: 820429 Take 1 Tablet(s) Oral QD repeat on day 3 and 6 07/19/19 23 023 Inactive pregabalin 100 mg capsule RxNorm: 457761 Take 1 Capsule(s) Oral QAM every morning 07/19/19 23 023 Inactive gatifloxacin 0.5 % eye drops RxNorm: 017760 Instill 1 Drop(s) as directed TID Instill 1 drop in to affected eye(s) starting 1 day prior to surgery and continue until gone (do not exceed 4 weeks). 07/13/19 23 023 Inactive carvedilol 25 mg tablet RxNorm: 712471 2 Tablet(s) Oral BID 07/13/19 23 023 Inactive Humulin R Regular U-100 Insulin 100 unit/mL injection solution RxNorm: 292731 85 Unit(s) Injection TID 07/13/19 23 023 Inactive ketorolac 0.5 % eye drops RxNorm: 499724 Instill 1 Drop(s) as directed QID Instill 1 drop into affected eye(s) 4 times daily starting 1 day prior to surgery and continue until gone (do not exceed 4 weeks). 07/13/19 23 023 Inactive Diflucan 150 mg tablet RxNorm: 078382 Take 1 Tablet(s) Oral QD repeat on day 3 and 6 06/30/19 23 023 Inactive Accu-Chek Guide test strips RxNorm: Use 1 Test Strip QID Use 1 test strip to monitor blood glucose 4 times daily and as needed. Dx:E11.42. 06/23/19 023 Inactive ok to substitute with any covered alternative test strip dextromethorphan-gu aifenesin 10 mg-100 mg/5 mL oral liquid RxNorm: 568308 Take 10 Milliliter(s) Oral every 4 hours as needed for cough 06/19/19 023 Inactive dextromethorphan-gu aifenesin 10 mg-100 mg/5 mL oral liquid RxNorm: 203634 Take 10 Milliliter(s) Oral every 4 hours as needed for cough 06/19/19 023 Inactive Lyrica 150 mg capsule RxNorm: 116338 Take 1 Capsule(s) Oral QHS every night at bedtime 06/18/19 23 023 Inactive d/c 100mg dose aripiprazole 15 mg tablet RxNorm: 460759 /2 TAB (7.5MG) ORALLY DAILY (DX:MAJOR DEPRESSIVE DISORDER) 06/05/19 23 023 Inactive pregabalin 100 mg capsule RxNorm: 379984 1 Capsule(s) Oral QAM every morning 06/02/19 23 023 Inactive Banophen 50 mg capsule RxNorm: 8409870 Take 1 Capsule(s) Oral Q6H every 6 hours as needed 05/19/19 23 No Stop Date Active Novolog Flexpen U-100 Insulin aspart 100 unit/mL (3 mL) subcutaneous RxNorm: 5057219 Inject 10 Unit(s) Subcutaneous QHS every night at bedtime with nighttime snack 04/08/20 22 022 Inactive Novolog Flexpen U-100 Insulin aspart 100 unit/mL (3 mL) subcutaneous RxNorm: 2969392 Inject 42 Unit(s) Subcutaneous TID in addition to sliding scale 04/08/20 022 Inactive d/c 36u albuterol sulfate HFA 90 mcg/actuation aerosol inhaler RxNorm: 0866860 Take 2 Puff(s) Inhalation Q4H every four hours as needed as needed for SOB, cough, or wheezing 04/07/20 030 Active Banophen 50 mg capsule RxNorm: 4178043 Take 1 Capsule(s) Oral Q6H every 6 hours as needed 04/06/20 023 Inactive diphenhydramine 50 mg tablet RxNorm: 8558268 Take 1 Tablet(s) Oral Q6H every 6 hours as needed 04/06/20 022 Inactive diphenhydramine 50 mg tablet RxNorm: 3742691 1 Tablet(s) Oral Q6H every 6 hours as needed 04/06/20 022 Inactive Abilify 15 mg tablet RxNorm: 506937 1/2 Tablet(s) Oral QD 03/10/20 023 Inactive Shingrix (PF) 50 mcg/0.5 mL intramuscular suspension, kit RxNorm: 2855408 Administer 1/2 Milliliter(s) Intramuscular QD one time shingrix step 2 ( step 1 given 11/04/21) WITH needle - Nursing please administer upon arrival and once administered post a bridge message with 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, 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, expiration 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, and lot# so we can update [facility] 02/18/20 22 Inactive dispense with needle Shingrix (PF) 50 mcg/0.5 mL intramuscular suspension, kit RxNorm: 3772589 Administer 1/2 Milliliter(s) Intramuscular QD one time shingrix step 2 ( step 1 given 11/04/21) WITH needle - Nursing please administer upon arrival and once administered post a bridge message with 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 of 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, 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, expiration 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, and lot# so we can update [facility] 02/18/20 22 022 Inactive dispense with needle Lyrica 100 mg capsule RxNorm: 929651 Take 1 Capsule(s) Oral QAM every morning 01/08/20 22 022 Inactive d/c 50mg dose acetaminophen 500 mg tablet RxNorm: 056488 Take 1 Tablet(s) Oral TID 01/08/20 22 022 Inactive d/c PRN order Lyrica 150 mg capsule RxNorm: 589637 Take 1 Capsule(s) Oral QHS every night at bedtime 01/08/20 22 023 Inactive d/c 100mg dose polyethylene glycol 3350 17 gram/dose oral powder RxNorm: 094233 Take 17=1 capful Gram(s) Oral QD mix with 4-8oz of liquid 01/08/20 22 025 Inactive take this in addition to BID prn order Abilify 5 mg tablet RxNorm: 469008 Take 1 Tablet(s) Oral QD take 1 tab po QD #30 refill 5 dx: MDD 12/12/19 22 022 Inactive Abilify 5 mg tablet RxNorm: 996106 Take 1 Tablet(s) Oral QD take 1 tab po QD #30 refill 5 dx: MDD 12/12/19 22 022 Inactive Novolog Flexpen U-100 Insulin aspart 100 unit/mL (3 mL) subcutaneous RxNorm: 3489518 Inject 42 Unit(s) Subcutaneous TID in addition to sliding scale 12/10/19 22 022 Inactive d/c 36u chlorthalidone 25 mg tablet RxNorm: 069142 Take 1 Tablet(s) Oral QAM every morning 12/10/19 22 023 Inactive pregabalin 50 mg capsule RxNorm: 044245 Take 1 Capsule(s) Oral QAM every morning 11/12/19 22 022 Inactive tetanus-diphtheria toxoids-Td 2 Lf unit-2 Lf unit/0.5 mL IM suspension RxNorm: 139 Take 0.5 Miscellaneous Intramuscular 11/12/19 22 022 Inactive need tdap - nursing to administer upon arrival pregabalin 50 mg capsule RxNorm: 771508 Take 1 Capsule(s) Oral QAM every morning 10/16/19 22 022 Inactive pregabalin 50 mg capsule RxNorm: 863913 Take 1 Capsule(s) Oral QAM every morning 10/16/19 22 06/27/2 022 Inactive pregabalin 50 mg capsule RxNorm: 127558 1 Capsule(s) Oral QAM every morning 10/15/19 22 Inactive Shingrix (PF) 50 mcg/0.5 mL intramuscular suspension, kit RxNorm: 9280327 Administer 1/2 Milliliter(s) Intramuscular one time Nursing please administer upon arrival and once administered post a bridge message with date of administration, 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, expiration date, and lot# so we can [...] aspart 100 unit/mL (3 mL) subcutaneous RxNorm: 2551683 Inject 10 Unit(s) Subcutaneous QHS every night at bedtime with nighttime snack 10/08/19 22 Inactive Shingrix (PF) 50 mcg/0.5 mL intramuscular suspension, kit RxNorm: 1608111 ADMINISTER 2-DOSE SERIES PER CDC GUIDELINES 10/08/19 22 Active Shingrix (PF) 50 mcg/0.5 mL intramuscular suspension, kit RxNorm: 8919077 ADMINISTER 2-DOSE SERIES PER CDC GUIDELINES 10/08/19 22 022 Inactive Novolog Flexpen U-100 Insulin aspart 100 unit/mL (3 mL) subcutaneous RxNorm: 4562841 Inject 36 Unit(s) Subcutaneous TID in addition to sliding scale 10/08/19 22 Inactive cholecalciferol (vitamin D3) 1,250 mcg (50,000 unit) capsule RxNorm: 583285 Take 1 Capsule(s) Oral QW once a week 10/08/19 Inactive Novofine Autocover 30 gauge x 1/3 needle RxNorm: Use 1 Miscellaneous UD as directed Use 1 needle as directed to administer insulin 5 times a day Dx:E11.42. 10/03/19 022 Inactive ok to substitute with any covered alternative pen needle benzoyl peroxide 10 % topical cleanser RxNorm: 372076 Apply 1 Application Topical QD apply to face, wash rinse and dry once daily (may change to QOD if drying) 08/19/19 022 Inactive (%covered by insurance) #60ml refill 11 dx: acne benzoyl peroxide 10 % topical cleanser RxNorm: 776876 Apply 1 Application Topical QD apply to face, wash rinse and dry once daily (may change to QOD if drying) 08/19/19 22 022 Inactive (%covered by insurance) #60ml refill 11 dx: acne benzoyl peroxide 10 % topical cleanser RxNorm: 457859 Apply 1 Application Topical QD apply to face, wash rinse and dry once daily (may change to QOD if drying) 08/19/19 22 022 Inactive (%covered by insurance) #60ml refill 11 dx: acne Lyrica 50 mg capsule RxNorm: 786893 Take 1 Capsule(s) Oral QAM every morning Take 1 capsule by mouth once daily 08/19/19 22 022 Inactive benzoyl peroxide 10 % topical cleanser RxNorm: 291877 Apply 1 Application Topical QD apply to face, wash rinse and dry once daily (may change to QOD if drying) 08/19/19 22 022 Inactive (%covered by insurance) #60ml refill 11 dx: acne Lyrica 100 mg capsule RxNorm: 026377 Take 1 Capsule(s) Oral QHS every night at bedtime Take 1 capsule by mouth once daily at bedtime 08/19/19 22 022 Inactive Lyrica 100 mg capsule RxNorm: 472235 Take 1 Capsule(s) Oral QHS every night at bedtime Take 1 capsule by mouth once daily at bedtime 08/16/19 22 022 Inactive Lyrica 50 mg capsule RxNorm: 979912 Take 1 Capsule(s) Oral QAM every morning Take 1 capsule by mouth once daily 08/16/19 22 022 Inactive Levemir FlexTouch U-100 Insulin 100 unit/mL (3 mL) subcutaneous pen RxNorm: 028524 Inject 86 Unit(s) Subcutaneous BID 08/05/19 22 022 Inactive d/c 83units BID Lyrica 100 mg capsule RxNorm: 133212 Take 1 Capsule(s) Oral QHS every night at bedtime Take 1 capsule by mouth once daily at bedtime 07/14/19 22 022 Inactive Lyrica 50 mg capsule RxNorm: 955406 Take 1 Capsule(s) Oral QAM every morning Take 1 capsule by mouth once daily 07/14/19 22 022 Inactive Levemir FlexTouch U-100 Insulin 100 unit/mL (3 mL) subcutaneous pen RxNorm: 645502 Inject 83 Unit(s) Subcutaneous BID 07/08/19 22 [...] test strip hydralazine 50 mg tablet RxNorm: 362683 Take 1 Tablet(s) Oral QID 05/05/20 21 022 Inactive venlafaxine ER 225 mg tablet,extended release 24 hr RxNorm: 220113 Take 1 Tablet(s) Oral QD 05/05/20 21 021 Inactive venlafaxine ER 225 mg tablet,extended release 24 hr RxNorm: 065789 Take 1 Tablet(s) Oral QD 05/05/20 21 022 Inactive isosorbide mononitrate ER 30 mg tablet,extended release 24 hr RxNorm: 930673 Take 1 Tablet(s) Oral QD 05/05/20 21 024 Inactive hydralazine 50 mg tablet RxNorm: 710720 Take 1 Tablet(s) Oral QID 05/05/20 21 021 Inactive aspirin 81 mg tablet,delayed release RxNorm: 887688 Take 1 Tablet(s) Oral QD 03/31/20 022 Inactive Vitamin D2 1,250 mcg (50,000 unit) capsule RxNorm: 9048445 Take 1 Capsule(s) Oral QW once a week x 12 weeks 03/31/20 022 Inactive Vitamin D2 1,250 mcg (50,000 unit) capsule RxNorm: 5043965 Take 1 Capsule(s) Oral QW once a week 03/31/20 21 021 Inactive Zetia 10 mg tablet RxNorm: 115577 Take 1 Tablet(s) Oral QD 03/31/20 024 Inactive Zetia 10 mg tablet RxNorm: 405528 Take 1 Tablet(s) Oral QD 03/31/20 021 Inactive hydralazine 25 mg tablet RxNorm: 944651 Take 1 Tablet(s) Oral QID 03/31/20 021 Inactive hydralazine 25 mg tablet RxNorm: 445426 Take 1 Tablet(s) Oral QID 03/31/20 021 Inactive hydralazine 10 mg tablet RxNorm: 461085 Take 1 Tablet(s) Oral QID 03/03/20 021 Inactive cephalexin 500 mg tablet RxNorm: 829213 Take 1 Tablet(s) Oral QID 02/27/20 021 Inactive cephalexin 500 mg tablet RxNorm: 483288 Take 1 Tablet(s) Oral QID 02/27/20 021 Inactive lisinopril 40 mg tablet RxNorm: 266752 Take 1 Tablet(s) Oral QD 02/11/20 023 Inactive Eliquis 5 mg tablet RxNorm: 9850184 Take 1 Tablet(s) Oral BID 01/05/20 21 025 Inactive Eliquis 5 mg tablet RxNorm: 4186361 Take 2 Tablet(s) Oral QD 01/01/20 21 021 Inactive Lyrica 50 mg capsule RxNorm: 120724 Take 1 Capsule(s) Oral QAM every morning 12/24/19 21 021 Inactive Lyrica 100 mg capsule RxNorm: 772031 Take 1 Capsule(s) Oral QHS every night at bedtime 12/24/19 21 021 Inactive clotrimazole 1 % topical cream RxNorm: 839344 Apply to right foot and toes Topical BID 12/04/19 21 023 Inactive metoprolol succinate ER 200 mg tablet,extended release 24 hr RxNorm: 593101 Take 1 Tablet(s) Oral QD 12/04/19 21 023 Inactive ciprofloxacin 500 mg tablet RxNorm: 375458 Take 1 Tablet(s) Oral QD 11/30/19 21 021 Inactive DX ofloxacin otic drops Accu-Chek Guide test strips RxNorm: USE 1 TO CHECK GLUCOSE 4 TIMES DAILY AND NEEDED 11/15/19 21 023 Inactive Blood Glucose Test strips RxNorm: Use 1 Test Strip QID at PRN 11/05/19 21 023 Inactive E11.42 lisinopril 30 mg tablet RxNorm: 070086 Take 1 Tablet(s) Oral QD 10/30/19 021 Inactive lisinopril 20 mg tablet RxNorm: 867699 Take 1 Tablet(s) Oral QD 10/23/19 21 021 Inactive lisinopril 20 mg tablet RxNorm: 352037 Take 1 Tablet(s) Oral QD 10/23/19 021 Inactive lisinopril 10 mg tablet RxNorm: 274455 Take 1 Tablet(s) Oral QD 10/02/19 21 021 Inactive icosapent ethyl 1 gram capsule RxNorm: 7659384 Take 2 Capsule(s) (2 gm) Oral BID with meals 09/12/19 21 024 Inactive Okay to dispense one 2gm tab if you have that available. icosapent ethyl 1 gram capsule RxNorm: 4172385 Take 2 Capsule(s) Oral BID 09/12/19 21 021 Inactive Okay to dispense one 2gm tab if you have that available. amlodipine 10 mg tablet RxNorm: 782882 Take 1 Tablet(s) Oral QD 09/04/19 21 021 Inactive aspirin 81 mg tablet,delayed release RxNorm: 889689 Take 1 Tablet(s) Oral QD 09/04/19 21 021 Inactive Levemir FlexTouch U-100 Insulin 100 unit/mL (3 mL) subcutaneous pen RxNorm: 336903 Inject 150 Unit(s) Subcutaneous BID 09/04/19 21 022 Inactive venlafaxine ER 150 mg tablet,extended release 24 hr RxNorm: 969413 Take 1 Tablet(s) Oral QD 04/20/ 021 Inactive clotrimazole-betame thasone 1 %-0.05 % topical cream RxNorm: 058440 Apply to rash on red area on left abdomen/chest Topical BID 08/10/19 21 021 Inactive amlodipine 5 mg tablet RxNorm: 826244 Take 1 Tablet(s) Oral QD 07/31/19 21 021 Inactive cephalexin 500 mg tablet RxNorm: 256590 Take 1 Tablet(s) Oral BID BID - Twice Daily 07/31/19 21 021 Inactive Start 08/01/20 pantoprazole 40 mg tablet,delayed release RxNorm: 537499 Take 1 Tablet(s) Oral QAM every morning 07/08/19 025 Inactive clopidogrel 75 mg tablet RxNorm: 451879 Take 1 Tablet(s) Oral QD 07/08/19 021 Inactive Blood Glucose Test strips RxNorm: Use 1 Test Strip QID at PRN 07/08/19 021 Inactive E11.42 senna 8.6 mg tablet RxNorm: 442900 Take 1 Tablet(s) Oral QD 07/08/19 025 Inactive Novolog Flexpen U-100 Insulin aspart 100 unit/mL (3 mL) subcutaneous RxNorm: 9072454 Administer per sliding scale Milliliter(s) Subcutaneous TID 151-200: 10 u; 201-250: 20 u; 251-300: 30 u; 301-350: 40 u; 351-400: 50 u. 07/08/19 21 022 Inactive lisinopril 5 mg tablet RxNorm: 438117 Take 1 Tablet(s) Oral QD 07/08/19 021 Inactive Novolog Flexpen U-100 Insulin aspart 100 unit/mL (3 mL) subcutaneous RxNorm: 0056617 Inject 85 Unit(s) Subcutaneous TID 07/08/19 022 Inactive pravastatin 80 mg tablet RxNorm: 552000 Take 1 Tablet(s) Oral QHS every night at bedtime 07/08/19 023 Inactive clotrimazole 1 % topical cream RxNorm: 461053 Apply to bilateral groin areas Topical BID 07/08/19 022 Inactive metoprolol succinate ER 200 mg tablet,extended release 24 hr RxNorm: 727707 Take 1 Tablet(s) Oral QD 07/08/19 21 021 Inactive Vitamin D3 25 mcg (1,000 unit) tablet RxNorm: 562430 Take 1 Tablet(s) Oral QD 07/08/19 21 021 Inactive isosorbide dinitrate 30 mg tablet RxNorm: 952928 Take 1 Tablet(s) Oral QD 07/08/19 21 021 Inactive carbamazepine 200 mg tablet RxNorm: 370241 Take 1 Tablet(s) Oral BID 07/08/19 21 025 Inactive Levemir FlexTouch U-100 Insulin 100 unit/mL (3 mL) subcutaneous pen RxNorm: 979926 Inject 140 Unit(s) Subcutaneous BID 07/08/19 021 Inactive torsemide 20 mg tablet RxNorm: 144954 Take 1 Tablet(s) Oral QD 07/08/19 21 023 Inactive venlafaxine 75 mg tablet RxNorm: 376783 Take 1 Tablet(s) Oral QD 07/08/19 021 Inactive acetaminophen 500 mg tablet RxNorm: 644061 Take 1 Tablet(s) Oral TID as needed for headache 06/18/19 021 Inactive acetaminophen 500 mg tablet RxNorm: 793391 Take 1 Tablet(s) Oral TID as needed for headache 06/18/19 021 Inactive Lyrica 100 mg capsule RxNorm: 658508 Take 1 Capsule(s) Oral QHS every night at bedtime 06/11/19 021 Inactive Lyrica 50 mg capsule RxNorm: 555071 Take 1 Capsule(s) Oral QAM every morning 06/10/19 21 021 Inactive hydrocortisone 2.5 % topical cream RxNorm: 949482 Apply to bilateral groin creases Topical BID 05/15/20 20 021 Inactive clotrimazole 1 % topical cream RxNorm: 398425 Apply to bilateral groin areas Topical BID 05/15/20 20 021 Inactive Lyrica 50 mg capsule RxNorm: 198316 Take 1 Capsule(s) Oral QAM every morning 05/14/20 20 020 Inactive Lyrica 100 mg capsule RxNorm: 741100 Take 1 Capsule(s) Oral QHS every night [...] Inactive Nystop 100,000 unit/gram topical powder RxNorm: 061976 Apply to abd folds, under breasts and L side of groin Topical BID x 14 days, then BID PRN 04/08/20 20 Inactive dx: yeast dermatitis Lyrica 100 mg capsule RxNorm: 573203 Take 1 Capsule(s) Oral QHS every night at bedtime 03/13/20 20 Inactive Lyrica 50 mg capsule RxNorm: 813650 Take 1 Capsule(s) Oral QAM every morning 03/13/20 20 020 Inactive ketoconazole 2 % shampoo RxNorm: 087216 Apply Topical two times a week with showers 03/11/20 20 024 Inactive cholecalciferol (vitamin D3) 50 mcg (2,000 unit) tablet RxNorm: 864211 Take 1 Tablet(s) Oral QD 03/11/20 20 021 Inactive Zetia 10 mg tablet RxNorm: 409405 Take 1 Tablet(s) Oral QD 10/22/ 021 Inactive Zetia 10 mg tablet RxNorm: 567522 Take 1 Tablet(s) Oral QD 03/07/20 20 Inactive Lyrica 50 mg capsule RxNorm: 321691 Take 1 Capsule(s) Oral QAM every morning 02/15/20 20 Inactive Lyrica 100 mg capsule RxNorm: 787672 Take 1 Capsule(s) Oral QHS every night at bedtime 02/15/20 20 Inactive Lyrica 100 mg capsule RxNorm: 784958 Take 1 Capsule(s) Oral QHS every night at bedtime 02/15/20 20 Inactive Lyrica 50 mg capsule RxNorm: 837513 Take 1 Capsule(s) Oral QAM every morning 02/15/20 20 Inactive venlafaxine ER 75 mg capsule,extended release 24 hr RxNorm: 344536 Take 3 Capsule(s) Oral QD 06/12/19 023 Inactive polyethylene glycol 3350 17 gram/dose oral powder RxNorm: 177223 Take 17=1 capful Gram(s) Oral BID as needed mix with 4-8oz of liquid 06/12/19 22 024 Inactive icosapent ethyl 1 gram capsule RxNorm: 1801379 Take 2 Capsule(s) (2 gm) Oral BID with meals 10/07/19 023 Inactive Okay to dispense one 2gm tab if you have that available. Levemir FlexTouch U-100 Insulin 100 unit/mL (3 mL) subcutaneous pen RxNorm: 141699 Inject 80 Unit(s) Subcutaneous BID 07/14/19 023 Inactive metoprolol succinate ER 200 mg tablet,extended release 24 hr RxNorm: 295992 Take 1 Tablet(s) Oral QD 08/12/19 025 Inactive loperamide 2 mg capsule RxNorm: 302572 Take 1 Capsule(s) Oral QID as needed 09/06/19 025 Inactive hydralazine 50 mg tablet RxNorm: 457451 Take 1 Tablet(s) Oral QID 08/12/19 025 Inactive Soft Touch Lancets RxNorm: miscellaneous 03/04/20 24 025 Inactive Novolog Flexpen U-100 Insulin aspart 100 unit/mL (3 mL) subcutaneous RxNorm: 9093702 Insert 30 Unit(s) Subcutaneous TID with meals [...] Little interest or pleasure in doing things 33738-4 1 04/14/20 25 Unknown Patient Health Questionnaire (PHQ9) Feeling down, depressed, or hopeless 83466-4 2 04/14/20 25 Unknown Patient Health Questionnaire (PHQ9) Trouble falling or staying asleep, or sleeping too much 89387-4 1 04/14/20 Unknown Patient Health Questionnaire (PHQ9) Feeling tired or having little energy 17419-0 2 04/14/20 25 Unknown Patient Health Questionnaire (PHQ9) Poor appetite or overeating 85635-3 0 11/29/20 25 Unknown Patient Health Questionnaire (PHQ9) Feeling bad about yourself or that you are a failure or have let yourself or your family down 38223-0 0 04/14/20 Unknown Patient Health Questionnaire (PHQ9) Trouble concentrating on things, such as reading the newspaper or watching television 30206-2 0 04/14/20 Unknown Patient Health Questionnaire (PHQ9) Moving or speaking so slowly that other people could have noticed or the opposite being so figety or restless that you have been moving around a lot more than usual 67061-9 0 04/14/20 Unknown Patient Health Questionnaire (PHQ9) Thoughts that you would be better off , or of hurting yourself 94022-2 0 04/14/20 Unknown Patient Health Questionnaire (PHQ9) If you checked off any problems, how difficult Not difficult at all have these problems made it for you to do your work, take care of things at home, or get along with other people? 1 04/14/20 Unknown Patient Health Questionnaire (PHQ9) Total Score 6 04/14/20 Unknown Review of Systems No Review of [...] Status Date Patient Education: Patient Medication Summary [id number]/07/2025ppointment: Harrison Munson WPtel: [address] [facility] 300 [id number] USF/U001/09/2025Referral: [facility] [address] [id number]erralNo Records Uzyokycz12/06/2025ppointment: Harrison Munson WPtel: [address] [facility] 300 [id number] USF/U008/08/2024ppointment: Harrison Munson WPtel: [address] [place], [place] [id number] USF/U007/11/2024Referral: [facility]/Endocrinology WPtel: 9 Doctors [facility] 3 [id number] USReferralNo Records Cxpcwzub89/24/2025ppointment: Harrison Munson WPtel: [address] [place] [address] 300 [id number] [facility]/08/2024ppointment: Harrison Munson WPtel: [address] [place] [address] 300 [id number] USF/U001/11/2024ppointment: Sandra Clark WPtel: [address] [place] [address] 300 [id number] [facility] Follow Up12/09/2022ppointment: Rosalina Shirley WPtel: [address] [place] [address] 300 [id number] [facility]10/26/2022Referral: [facility] WPtel: [address], [address] AehppPO[address] USReferralRecords Vshlmobs10/08/2023ppointment: Rosalina Shirley WPtel: [address] [facility] 300 [id number] USF/08/11/2022ppointment: Rosalina Shirley WPtel: [address] [facility] 300 [id number] USF/07/14/2022ppointment: Rosalina Shirley WPtel: [address] [facility] 300 [id number] USF/2Referral: [facility] WPtel: [address] [facility] 180 [id number] PJFjkgapweVzzbsxxxg64/12/2022Referral: General CardiologyReferralCompleted 1Referral: General PsychologistReferralClosedReferral: General PsychiatristReferralPatient/Family Scheduling AppointmentReferral: [facility] WPtel: [facility] [id number] USReferralFacility Scheduling AppointmentReferral: General Physical [...] extremity edema Active 01/11/2024 (E11.22-250.40) 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
--- OUTSIDE RECORDS SUMMARY | 2025-04-29 09:27 | XMS_ITS | Clinical Summary ---
Author Organization [facility] Address [facility] [place] [address] Care Team Providers Care Business Unit Controller Name Role Phone Alan Lopez MD Unavailable Pcp, No Primary Care Provider Unavailabl e Jessa Webster MD Unavailable [phone] Allergies Active AllergyReactionsCriticalityNoted DateCommentsLisinoprilHyperkalemia 01/29/2012MetforminChest Pain12/23/2015 Back pain, arm pain Medications MedicationSigDispense QuantityRefillsLast FilledStart DateEnd DateStatus clotrimazole (LOTRIMIN) 1 % cream Indications:Tinea pedis of both feetApply to feet in am daily and in evening as able 113 Tube Active polyethylene glycol (MIRALAX) 17 g powder for solution Indications:ConstipationTake 17 g by mouth once daily. 30 Packet Active acetaminophen (ACETAMINOPHEN PAIN RELIEF) 500 mg tablet Indications:DISH (diffuse idiopathic skeletal hyperostosis)Take 1 tablet by mouth every 6 hours if needed. Takes 1 at noon, 2 in evening and 1 at bedtime. Maxacetaminophen dose: 4000mg in 24 hrs. 360 tablet Active sennosides (SENNA) 8.6 mg tablet Indications:Chronic constipation1-2 tablets daily to maintain daily BM 180 tablet Active aspirin (ECOTRIN) 81 mg enteric coated tablet Indications:Hypercholesterolemia,HTN (hypertension)Take 1 tablet by mouth once daily with a meal. 90 tablet Active Garlic tablet Take 1 tablet by mouth.Active medication order composer Indications:TASHI (obstructive sleep apnea)CPAP- set pressure at 17 cm/H2O New CPAP supplies: Humidifier Chamber x1, mask with cushion x1, Tubing (heated if desired) x1, Headgear x1, Disposable filters (reusable and disposable) X1; 1 unit 6002/10/2018Active CPAP Indications:TASHI (obstructive sleep apnea)CPAP machine for home use at pressure: 15 cm/h2O , Heated humidifier x 1, Humidifier chamber x 1, 1 unit 11005/19/2018Active nitroglycerin (NITROSTAT) 0.4 mg sublingual tablet Indications:Chest pain in adultPlace 1 tablet under the tongue every 5 minutes if needed for Chest Pain. 1 Bottle 08/02/2018Active Insulin Syringes, Disposable, 1 mL Indications:Other diabetic neurological complication associated with type 2 diabetes mellitus (HC)For administering insulin at home. E11.22 . Please give U- 500 insulin syringes 1 box Active cetirizine (ZYRTEC) 10 mg tablet Indications:Environmental allergiesTake 1 tablet by mouth once daily. 90 tablet Active insulin syringe-needle u-100 (BD INSULIN SYRINGE ULTRA-FINE) 1 mL 31 gauge x 5/16 Indications:Insulin dependent diabetes mellitusFOR ADMINISTERING INSULIN AT HOME. 300 Each Active medication order composer Indications:Chronic edemaCompression stockings, size large, full calf, level 20/30 mmhg 2 Package 11/03/2018Active compr.stocking,knee,long,large (COMP STOCKING,KNEE,LONG,LARGE) Indications:Insulin dependent diabetes mellitus,Diabetic polyneuropathy associated with type 2 diabetes mellitus (HC),Chronic edemaJOBST #[id number] LRG FULL CALF KNEE BLACK 20-30 COMPRESSION 2 Package 11/26/2018Active lancets (TRUEPLUS LANCETS) 30 gauge misc Indications:Type 2 diabetes mellitus with stage 3 chronic kidney disease, with long-term current use of insulin(HC),Insulin-requiring or dependent type II diabetes mellitus (HC)As directed. Dispense lancets covered by insurance. E11.9 IDDM type II - Test 4-5 times/day 500 Each Active metoprolol succinate SR (TOPROL XL) 200 mg Sustained-Release tablet Indications:Hypertension, unspecified typeTAKE 1 TABLET BY MOUTH ONCE DAILY. 90 tablet Active pravastatin (PRAVACHOL) 80 mg tablet Indications:High triglyceridesTake 1 tablet by mouth at bedtime. 90 tablet Active amLODIPine (NORVASC) 5 mg tablet Take 1 tablet by mouth once daily.Active carBAMazepine (TEGRETOL) 200 mg tablet Indications:Convulsions, unspecified convulsion type (HC)Take 1 tablet by mouth 2 times daily. 360 tablet Active clopidogreL (PLAVIX) 75 mg tablet Take 1 tablet by mouth every morning.Active isosorbide mononitrate (IMDUR) 30 mg extended release tablet 24 Hour Indications:CAD in capitan grande band arteryTake 1 tablet by mouth once daily.02/08/2020 Active lisinopriL (PRINIVIL; ZESTRIL) 5 mg tablet Take 1 tablet by mouth once daily.Active pantoprazole (PROTONIX) 40 mg delayed-release tablet Take 1 tablet by mouth once daily.Active torsemide (DEMADEX) 20 mg tablet Indications:Edema, unspecified typeTake 1 tablet by mouth once daily. 720 tablet Active venlafaxine (EFFEXOR XR) 75 mg cp24 Extended-Release capsule Indications:Depression, unspecified depression type,Hereditary and idiopathic peripheral neuropathyTake 1 capsule by mouth once daily.02/08/2020Active blood-glucose meter Indications:Diabetes mellitus type 2, uncontrolled, with complicationsby Not Applicable route. Dispense meter, test strips, lancets covered by pt ins. E11.9 IDDM type II- Test 4 times/day. Reason: High A1C 1 Device 02/08/2020Active pregabalin (LYRICA) 50 mg capsule Indications:Neuropathy1 cap in the morning and two caps at bedtime 270 capsule Active blood sugar diagnostic (Blood Glucose Test) strip Indications:Other diabetic neurological complication associated with type 2 diabetes mellitus (HC),Diabetes 1.5, managed as type 1 (HC)Dispense brand covered by pt ins. DX DM:E13.9 pt tests 4 x daily. 400 Each ctive albuterol (PROVENTIL) 2 mg tablet Take 2 mg by mouth.Active albuterol HFA (PRO-AIR; VENTOLIN; PROVENTIL) 90 mcg/actuation inhaler 04/08/2022ctive albuterol HFA (PRO-AIR; VENTOLIN; PROVENTIL) 90 mcg/actuation inhaler Every 4 Hours as neededActive allopurinoL (ZYLOPRIM) 300 mg tablet DailyActive allopurinoL (ZYLOPRIM) 100 mg tablet DailyActive amoxicillin-clavulanate 875-125 mg tablet (AUGMENTIN) Twice Daily For 7 Days07/23/2020ctive apixaban (ELIQUIS) tablet in a dose pack .as Direc12/26/2020ctive Eliquis 5 mg tablet 06/26/2022ctive ARIPiprazole (ABILIFY) 15 mg tablet 06/27/2022ctive benzoyl peroxide 10% (BENZAC-W WASH) 10 % external wash 08/18/2021ctive capsaicin (ZOSTRIX) 0.025 % cream Three Times A Day as neededActive carvediloL (COREG) 25 mg tablet Take 50 mg by mouth.05/26/2022ctive carvediloL (COREG) 25 mg tablet 06/27/2022ctive cephalexin (KEFLEX) 500 mg capsule Four Times Daily05/17/2021ctive cholecalciferol (VITAMIN D3) 1,000 unit tablet Take 1,000 units by mouth.Active diphenhydrAMINE (BENADRYL) 50 mg capsule Take 50 mg by mouth.Active Banophen 50 mg capsule 05/20/2022ctive ergocalciferol (VITAMIN D2; DRISDOL) 50,000 unit capsule 3 Times WeeklyActive ezetimibe-atorvastatin 10-10 mg tab Daily03/07/2022ctive hydrALAZINE (APRESOLINE TABLET) 50 mg tablet four times daily03/07/2022ctive spironolactone (ALDACTONE) 50 mg tablet Twice A DayActive semaglutide (Ozempic) 2 mg/dose (8 mg/3 mL) subcutaneous pen Indications:Type 2 diabetes mellitus with diabetic nephropathy, with long-term current use of insulin (HC)Inject 2 mg subcutaneous once weekly. 3 Pen 3015Active Insulin Safety Mchenry (Disp) (novofine Solyndraover) 30 gauge x 05/19 Indications:Diabetes 1.5, managed as type 2 (HC)For administering insulin at home. Pt uses 10 x diakly 300 Each 3045Active pioglitazone 30 mg tablet Indications:Type 2 diabetes mellitus with diabetic nephropathy, with long-term current use of insulin (HC)Take 1 Tablet (30 mg) by mouth once daily. 90 Tablet 5Active spironolactone 25 mg tablet Indications:Hypertension2 TABLETS (50MG) BY MOUTH ONCE DAILY 56 Tablet 1205Active Jardiance 10 mg tablet Indications:Type 2 diabetes mellitus without complication, without long-term current use of insulin (HC)1 TABLET BY MOUTH ONCE DAILY 28 Tablet 1205Active Humulin R 500 unit/mL injection Indications:Type 2 diabetes mellitus with diabetic nephropathy, with long-term current use of insulin (HC)Inject SC Humulin U500 insulin 140 with breakfast, 140 units with lunch and 160 units with supper, slowly titrate to TDD 400units 24 mL 5Active Humulin R 500 unit/mL injection Indications:Type 2 diabetes mellitus with diabetic nephropathy, with long-term current use of insulin (HC)Inject SC Humulin U500 insulin 140 with breakfast, 140 units with lunch and 160 units with supper, slowly titrate to TDD 400units 24 mL Discontinued(Reorder (E-cancel not sent)) Active Problems ProblemNoted DateDiagnosed DateCKD (chronic kidney disease) stage 4, GFR 15-29 ml/min09/01/2018Anemia in stage 4 chronic kidney jshduiw9209/01/2018Depression 12/27/2017Anemia in stage 3 chronic kidney jfqphyo6212/13/2017OSA 10/26/2017 AHI-99 with severe aytcdqwde43/25/2018Chronic idiopathic gout of multiple sites 11/01/2015DISH (diffuse idiopathic skeletal hyperostosis)01/17/2015CKD (chronic kidney disease) stage 3, GFR 30-59 ml/min04/05/2014Diabetic yjxcacazkj88/18/2014 Type 2 diabetes mellitus with stage 3 chronic kidney disease, with long-term current use of eptgjlj4206/27/20132121Shdyycjc49/02/2013 Overview (12/15/2013): Has had brain MRI and temporal artery biopsies per patient. Is on amitriptyline. Previous to try higher dose gabapentin but caused significant edema. Currently on Topamax. See neurology consult from November 2013: May increase Topamax to max of 2 mg b.i.d. if needed. Consider melatonin. Edema02/29/2012CP (advance care planning)07/06/2011 Overview (05/25/2012): 05/24/2012 Patient has identified Health [...] or reversible illness/injury or non-life threatening chronic conditions.Duration of invasive or uncomfortable interventions should generally [...] at 10 am and no showed. RN Roof Bolter Helper, Juanita Yoo, notified and she will attempt [...] No, referral made to Advance Care Plan Crayon Grader. Patient has identified Specific Treatment Preferences: No Sophia Méndez RN .................... 07/06/2011 2:30 PM] Specific limits to treatment preferences NOT identified: ASSUME FULL TREATMENT. Assessment & Plan (05/25/2012 12:51 PM RECEIVER BULK SYSTEM): Advance Care Planning: Disease-specific Session Leonid Leahy is a [facility] patient. His PCP is Leandra Limon at [facility]. Advance care planning discussions were completed with Leonid. He identified his sister, Brittany Suggs, as his healthcare agent. Brittany was not present for ACP session. Understanding of Illness and Disease Babb: Leonid identifies his medical condition as what [...] important for Leonid to live well: Daily visitto local bar for a pop and to [...] friends that have or been seriously ill includehis father who this past January. I am [...] choose: to focus treatment on comfort and qualityof life (Quality of life is more important than length of life to Leonid.) Limited trial of oral antibiotics only. HIGH SURVIVAL; LOW COGNITIVE STATUS: If Leonid had a serious complication and had a good chance of living through the complication but it was expected that he would never know who he was or who he waswith and would require 24 hour nursing care, [...] unable to breathe on his own, he wouldchoose the following: attempt to use any appropriate non- invasive method to assist breathing, and limited trial [...] and primary care provider. Hard Choices for [place] People booklet was sent to Leonid and his health care agent for review. Leonid requested all information be mailed to his sister and resume writer to place call to sister to explain process. Leonid identified the following concerns during his advance care planning session: needing assistance at home to ensure he is managing his medications and treatments to keep going as is and stabilizing. Is followed by Clinic Resume Specialist for needed services. Questions identified for his primary care provider: none Documents addressed during this advance care planning session: Health Care Directive completed and scanned into medical record. Statement of Treatment Preferences for advanced illness completed and scanned into the medical record. Recommendations/Plan: Peter to review Advance Care Plan with Leonid's healthcare agent. Youth Advocate will be contacting Leonid's [facility] to explain [...] recommendations and Leonid's concerns and questions were cc???ed to his primary provider. Interviewer: Khadjiah Mcneal RN 05/24/2012 Anemia, msieyujmihr66/21/2011Unspecified hereditary and idiopathic peripheral gxolhfpmax51/17/2011 Overview (03/02/2011): Confirmed on upper extremity EMG Essential yedctiqixwukfflemyis52/14/2011Vitamin D qqfvbsfflo89/14/2011Learning hupulhruen69/14/2011 Overview (08/28/2010): Spelling, special education in school Metabolic sgpqbkno48/01/2009Morbid obesity with BMI of 60.0-69.9, adult 03/17/20098983Tgrqzaryx89/01/2009Subjective /26/2009Sensorineural hearing loss, leymdyold60/26/2009Insomnia, qxfesvkkqyp08/28/2009Unspecified sleep apnea 09/11/2008 Overview (09/11/2008): Has CPAP does not use macchine regularily HTN (hypertension) Overview (07/30/2009): Updated by system to replace inactive record SeizuresHypercholesterolemia Resolved Problems ProblemNoted DateDiagnosed DateResolved DateType 2 diabetes mellitus with neurologic wwrhqeyhdjla33CKD (chronic kidney disease) CKD (chronic kidney disease) stage 3, GFR 30-59 ml/min Medical Home Overview (07/06/2011): Sophia Méndez RN .................... 07/06/2011 2:27 PM Sophia Méndez RN RN Clinic Resume Specialist - [facility] [phone] Vitamin D /23/4202Qgdzhtqdtq73Major depressive disorder, recurrent episode, rlauuhnspnt34Dysthymic kblbepcd56 Overview (2013): Per chart review as of 09/2013: previously on Fluoxetine, tried to augment with wellbutrin but caused itching and concern for increased seizure risk with higher doses do wellbutrin stopped. Then Buspar added. Fluoxetine switched to Lexapro. Patient not feel like Lexapro helping as of 09/2013 so will switch to Effexor and monitor. IBCGBIYC06 Overview (11/01/2008): Recommended (pre-meal 80-130, 2 hr after eatting < 160, bedtime 100-140) Encounters DateTypeDepartmentCare ZervIsqmvvzmugc81/11/2025 9:40 AM CSTTelemedicine [facility] [address] [place] [address] Jessa Webster MD Telehealth (No vitals taken ); Narjhgqh56/11/2025Telephone [facility] [address] [address] Jessa Webster MD Outside Order (Medication order)04/20/2025Refill [facility] [address] [address] Jessa Webster MD Refill Eybseij6102/07/2025Telephone [facility] [address] [address] Jessa Webster MD Diabetesfrom Last 3 Months Immunizations ImmunizationAdministration DatesNext DueHepatitis B (Adult)02/16/2014,10/12/2013 ,03/14/2013Influenza A (H1N1), Inactivated (Age >=3 Years)05/07/2009Influennayely, IIV3 (Age >=3 years)03/14/2013,02/08/2012,03/15/2009,05/18/2007Influenza, IIV4 02/13/2019,02/21/2018,02/17/2017,03/02/2016,02/21/2015,02/16/2014Influennayely, IIV4 (=>6mos) MDV1Pneumococcal Poly,23-Valent (Pneumovax)01/08/2005Tdap 05/07/2009 Family History Medical HistoryRelationNameCommentsUnknownBrother 1UnknownBrother 2Unknown Brother 3UnknownFatherGood HealthMotherUnknownSister 1UnknownSister 2Unknown Sister 3RelationNameStatusCommentsBrother 1Brother 2Brother 3FatherMotherSister 1Sister 2Sister 3 Social History Tobacco UseTypesPacks/DayYears UsedDateSmoking Tobacco: NeverSmokeless Tobacco: Never Tobacco Cessation:Counseling Given: Not Answered Alcohol UseStandard Drinks/WeekCommentsNo0 (1 standard drink = 0.6 oz pure alcohol)PHQ-2AnswerDate RecordedPHQ-2 Vhkil375Social ConnectionsAnswer Date RecordedFrequency of Communication with Friends and FamilyNot on file 05/17/2021Financial Resource StrainAnswerDate RecordedDifficulty of Paying Living ExpensesNot on file2Difficulty of Paying Living ExpensesNot on file2Sex and Gender InformationValueDate RecordedSex Assigned at Not on fileLegal DybPkhl5305/30/2012 5:24 AM CSTGender IdentityNot on fileSexual OrientationNot on file Last Filed Vital Signs Vital SignReadingTime TakenCommentsBlood Stcnpuhe407/5001 4:05 PM RECEIVER BULK SYSTEM Jwnjc663805/26/2024 4:05 PM SMJWoepgoafnwk35 ??C (96.8 ??F)08/19/2022 1:41 PM CDT Respiratory Kjvb620108/19/2022 2:23 PM CDTOxygen Dztwmlgyqv81%05/26/2024 4:05 PM CSTInhaled Oxygen Concentration--Yoekol951.8 kg (392 lb)05/26/2024 4:05 PM RECEIVER BULK SYSTEM Efznad648.6 cm (5' 6)07/14/2022 6:10 PM CSTBody Mass Index63.27007/14/2022 6:10 PM RECEIVER BULK SYSTEM Plan of Treatment DateTypeDepartmentCare Team (Latest Contact Info)Hjigdacnfsn21/19/2026 10:05 AM CDTTelemedicine [facility] [address] [address] [place] [address] [place], [place] [id number] Health MaintenanceDue DateLast DoneCommentsHIV for age 15-Hepatitis C screening for age 18-Colonoscopy through age Pneumococcal series for age 50+ (2 of 2 - PCV)RSV vaccine for adults or (1 - Risk 50-74 years 1-dose series)09/13/2009Zoster (shingles) series for age 50+ (1 of 2)09/13/2009Tetanus iequsnv1005/07/2019 05/07/2009Depression screening for age 12+, 08/24/2017, 08/23/2017, Additional history existsBMI (ht and wt on same day) for age 18+ , 12/27/2018, 09/13/2018, Additional history existsLipids for age 45-75, 04/25/2018, 04/25/2018, Additional history existsMedicare Wellness for age 65+5COVID-19 vaccine series (2024- season)/06/2023, 06/02/2023, 04/03/2022, Additional history existsInfluenza Vaccine (#1), 02/21/2018, 02/17/2017, Additional history existsHepatitis B series for 19+Gfkqxudue65/03/2014, 10/12/2013, 03/14/2013 Goals GoalPatient Goal TypeAssociated ProblemsRecent ProgressPatient-Stated?Author DIABETES-PATIENT WILL have a A1c at or below 7. Plan: eat prescribed diet, do blood sugar checks asprescribed, Take insulin as prescribed. Follow up with appointments as needed. . DietOn track(01/28/2012 12:28 PM CDT)Kay Baer DIABETES-KEEPS DAILY LOG OF GLUCOSE CHECKS :Plan: to fax the readings to Dr Benjamin as directed DietOn track(01/28/2012 12:28 PM CDT)Kay Baer [employer] ImplantedTypeAreaManufacturerDevice IdentifierShelf Expiration DateModel / Serial / LotIol [place] +20 Tecnis Zcb00 - [id number] Implanted:Qty: 1 on 07/15/2022 [facility] [employer] Axwzme2306/24/2025ZCB00 20.0 / [id number] / Iol [place] +20 Tecnis Zcb00 - [id number] Implanted:Qty: 1 on 08/19/2022 by [facility]: [employer] Mdouhx0006/24/2025ZCB00 20.0 / [id number] / Procedures Procedure NamePriorityDate/TimeAssociated DiagnosisCommentsLIPID PANELRoutine 03/13/2019 2:31 PM CDT Essential hypertriglyceridemia from Last 3 Months or Most Recently Relevant to Health Maintenance Results * (ABNORMAL) LIPID PANEL (03/13/2019 2:31 PM CDT)ComponentValueRef RangeTest MethodAnalysis TimePerformed AtPathologist SignatureCHOLESTEROL,[id number] - 199 mg/dL03/13/2019 9:25 PM [facility] FURWNEAMXAQVT970(H)<150 mg/dL03/13/2019 9:25 PM [facility]- C[facility]TRAL LABORATORYHDL QWUBVULUBVX25(L)>40 mg/dL03/13/2019 9:25 PM [facility]AL LABORATORYNON-HDL ZEBWOSGWVXT843(H)<145 mg/dl 03/13/2019 9:25 PM [facility] LABORATORYCHOL/HDL RATIO6.66(H)<4.501 9:25 PM [facility]-CENTRAL LABORATORYLDL SWYDQAGRXPQ81/28/2019 9:25 PM [facility]- CENTRAL LABORATORYComment:Invalid LDL when Trig >400.PROVIDER ORDERED STATUS QXDQQV5103/13/2019 9:25 PM [facility] Specimen (Source)Anatomical Location / LateralityCollection Method / Volume Collection TimeReceived TimeBloodBLOOD SPECIMEN / UnknownVenipuncture / Ogppiez1703/13/2019 2:31 PM CDT1 2:31 PM CDT Narrative Authorizing ProviderResult TypeResult StatusRobyn Nikki Sosa MDCHEMISTRYFinal ResultPerforming OrganizationAddressCity/State/ZIP CodePhone Number [facility] [address] [place] [address], from Last 3 Months or Most Recently Relevant to Health Maintenance Insurance * Guarantor: Leonid Leahy AAccount TypeRelation to PatientDate of BirthPhone Billing AddressPersonal/MtdhbdLzat04/30/1961 [address] [address] [place] [address] Advance Directives TypeDate RecordedPatient RepresentativeExplanationPOLST09/26/2014 3:45 [facility], 09/24/2014Healthcare Directive06/02/2012 3:51 PMACP * Full Code (Latest Code Status on File) Date ActivatedDate InactivatedComments08/19/2022 11:34 AM08/19/2022 7:38 PMQuestion AnswerCommentsCode Status Discussion:* Unable to Assess Preferences, Provider to review later * Full Code Date ActivatedDate InactivatedComments07/15/2022 8:20 AM07/15/2022 2:06 PMQuestion AnswerCommentsCode Status Discussion:* Unable to Assess Preferences, Provider to review later * Full Code Date ActivatedDate IvivvlkhdltCjgjrnev58/29/2009 9:30 PM03/19/2009 6:17 PM Care Teams Team MemberRelationshipSpecialtyStart DateEnd Date Pcp, No . PCP - General07/15/22 Alan Lopez MD Internal MedicineInternal Medicine11/20/10 [place] [address] [place] [address] EndocrinologyEndocrinolog05/26/24
[2025-04-29] MEDS: NYSTATIN CREAM 30 GM 1 APPLIC TOPICAL (09:49)
[2025-04-29 11:00] VITALS: BP 146/79; PULSE 87; RESP 20; O2SAT 94
[2025-04-29 11:49] LABS: Appearance Urine Clear (Clear)
--- NOTE | 2025-04-29 12:00 | CRLHL7_ITS ---
For Patients: As a result of the Century Cures Act, medical imaging exams and procedure reports are released immediately into your electronic medical record. You may view this report before your referring provider. If you have questions, please contact your health care provider. INDICATION: Perirectal abscess, right-sided TECHNIQUE: CT abdomen and pelvis acquired with 150 mL Isovue 370 IV contrast. COMPARISON: CT chest abdomen pelvis: 04/19/2024, 03/05/2024 FINDINGS: Motion degraded exam. Lower chest: Few scattered small lung nodules in the bases are approximately stable, for example 2 mm in the right lower lobe on 3:21. Liver: Hepatic steatosis. No suspicious focal abnormality. Gallbladder and bile ducts: Cholecystectomy. No biliary dilation. Pancreas: Unchanged, mildly atrophic. Spleen: Enlarged. Adrenal glands: Normal. Kidneys: Symmetric enhancement. No hydronephrosis. Large right upper pole cyst unchanged. GI tract: Portions of the bowel are outside the field of view. The imaged portions of small bowel and colon are unremarkable. Vasculature: Abdominal aorta is normal in caliber. Lymph nodes: No enlarged lymph nodes by size criteria. Peritoneum/Abdominal Wall: Unremarkable. No free air or significant free fluid. Pelvis: Urinary bladder is distended and thin-walled. Bones: No aggressive osseous lesions. Moderate to severe spinal degenerative changes. Other: Peripherally enhancing tubular fluid collection in the right gluteal cleft measuring approximately 4.8 x 1.7 x 5.8 cm (AP by TR by CC), suspicious for perianal fistula/abscess. Fat containing umbilical hernia. IMPRESSION: Right perianal fistula/abscess. Splenomegaly. Other incidental findings as detailed above. Please note that all CT scans at this facility use dose modulation, iterative reconstruction, and/or weight-based dosing when appropriate to reduce radiation dose to as low as reasonably achievable. Dictated by Alber Sheffield MD @ 04/29/2025 1:52:15 PM (Electronically Signed)
[2025-04-29 13:00] VITALS: BP 157/68; PULSE 87; RESP 20; O2SAT 94
[2025-04-29 13:45] VITALS: BP 142/70; PULSE 85; RESP 20; O2SAT 94
== END 2025-04-29 16:00 | disposition home or self-care (01) ==
PROVIDERS: Emergency Provider Family Medicine
DX: K61.0 Anal abscess (principal); R07.89 Other chest pain; R16.1 Splenomegaly, not elsewhere classified; R82.90 Unspecified abnormal findings in urine; Z79.01 Long term (current) use of anticoagulants; Z86.718 Personal history of other venous thrombosis and embolism; Z79.82 Long term (current) use of aspirin; W01.0XXA Fall on same level from slipping, tripping and stumbling without subsequent striking against object, initial encounter
CPT/HCPCS: 36415; 71101; 72100; 72170; 74177; 80053; 81001; 85025; 86140; 87086; 99284; 99285; A9270; Q9967

== ENCOUNTER 2025-04-29 15:41 | Outpatient (CLI) | payer MEDICARE, MEDICAID, SELFPAY | END 2025-04-29 15:42 | disposition home or self-care (01) | PROVIDERS: Visit Provider Family Medicine | DX: K61.0 Anal abscess (principal) | CPT/HCPCS: A0425; A0428 ==